=== PATIENT | female | born 1970 | race Two or more races ===

== ENCOUNTER 2017-10-10 18:11 | Inpatient (IN) | payer MEDICAID ==
[~2017-10-10] VITALS: Ht 162.6 cm; Wt 64.4 kg
[2017-10-10 18:15] VITALS: BP 158/95
[2017-10-10] MEDS ORDERED: LORazepam Inj 2mg/ml 1ml IV ONE (19:00)
[2017-10-10 20:17] LABS: BASOPHILS % (AUTO) 1.1 % (0.0-2.0); EOSINOPHILS % (AUTO) 2.1 % (0.0-3.0); HEMATOCRIT 36.7 % (37.0-47.0); HEMOGLOBIN 12.4 G/DL (12.0-16.0); LYMPHOCYTES % (AUTO) 29.1 % (20.0-45.0); MEAN CORPUSCULAR VOLUME 84 FL (80-99); MONOCYTES % (AUTO) 6.1 % (1.0-10.0); NEUTROPHILS % (AUTO) 61.5 % (45.0-75.0); PLATELET COUNT 500 K/UL (150-450); RED BLOOD COUNT 4.38 M/UL (4.20-5.40); RED CELL DISTRIBUTION WIDTH 12.7 % (11.6-14.8); WHITE BLOOD COUNT 13.3 K/UL (4.8-10.8)
[2017-10-10 20:32] LABS: ANION GAP 13 mmol/L (5-15); BLOOD UREA NITROGEN 21 mg/dL (7-18); CALCIUM 10.1 MG/DL (8.5-10.1); CARBON DIOXIDE 26 MMOL/L (21-32); CHLORIDE 100 MMOL/L (98-107); CREATININE 1.5 MG/DL (0.55-1.30); POTASSIUM 3.4 MMOL/L (3.5-5.1); SODIUM 139 MMOL/L (136-145)
[2017-10-10 20:46] LABS: ALANINE AMINOTRANSFERASE 36 U/L (12-78); ALBUMIN 3.8 G/DL (3.4-5.0); ALBUMIN/GLOBULIN RATIO 0.8 (1.0-2.7); ALKALINE PHOSPHATASE 107 U/L (46-116); ASPARTATE AMINO TRANSFERASE 16 U/L (15-37); BILIRUBIN,TOTAL 0.5 MG/DL (0.2-1.0); CKMB 0.6 NG/ML (0.0-3.6); CREATINE KINASE 34 U/L (26-308)
[2017-10-10 20:55] VITALS: BP 141/79
[2017-10-10 21:12] LABS: APPEARANCE,URINE CLOUDY; BILIRUBIN, URINE NEGATIVE (NEGATIVE); GLUCOSE, URINE (UA) NEGATIVE (NEGATIVE); KETONES,URINE NEGATIVE (NEGATIVE); LEUKOCYTE ESTERASE ,URINE 1+ (NEGATIVE); NITRITE,URINE POSITIVE (NEGATIVE); PH,URINE 7 (4.5-8.0); PROTEIN,URINE 2+ (NEGATIVE); UROBILINOGEN,URINE NORMAL MG/DL (0.0-1.0)
[2017-10-10 21:13] LABS: COLOR,URINE YELLOW
--- NOTE | 2017-10-10 21:58 | Emergency Room Report ---
History of Present Illness General Chief Complaint: Behavioral Complaint Source: Patient, Medical Record, EMS Present Illness HPI This patient presents from a care home facility. The nursing facility sent this patient over for anxiety and concern of methamphetamine withdrawal. Apparently, this patient is new to this care home facility. She has a history of an aortic dissection earlier this year that had to undergo surgical repair. She was unable to wean off the ventilator and had to undergo tracheostomy. I am unsure where the history of methamphetamine use in from. Per the PMD this was reported to the care home facility by a family member. The patient is very anxious and agitated. Initially she was unable to give me any kind of history. However, after being given Ativan she became more calm and complained of pain in her left flank. There is no other complaints. Allergies: Coded Allergies: No Known Allergies (Unverified , 10/10/17) Patient History Past Medical History: see triage record, HTN, psych hx Past Surgical History: other - Aortic dissection repair, tracheostomy, PEG Social History: Reports: smoking - hx of , drug use - ?Meth Last Menstrual Period: na Reviewed Nursing Documentation: PMH: Agreed; PSxH: Agreed Nursing Documentation-PMH Past Medical History: No History, Except For Hx Cardiac Problems: Yes - aortic anuerysm, trach Hx Hypertension: Yes History Of Psychiatric Problem: Yes - anxiety, meth abuse Review of Systems All Other Systems: negative except mentioned in HPI Physical Exam Vital Signs Date Time Temp Pulse Resp B/P (MAP) Pulse Ox O2 Delivery O2 Flow Rate FiO2 10/10/17 18:06 98.2 118 30 149/98 99 Room Air 98.2 10/10/17 18:15 6.0 Sp02 EP Interpretation: reviewed, normal General Appearance: no apparent distress, alert, GCS 15, non-toxic, other - anxious Head: normocephalic, atraumatic Eyes: bilateral eye normal inspection, bilateral eye PERRL ENT: hearing grossly normal, normal pharynx, no angioedema, normal voice Neck: normal inspection, tracheotomy Respiratory: chest non-tender, lungs clear, normal breath sounds, no respiratory distress, no retraction, no accessory muscle use, speaking full sentences Cardiovascular #1: no edema, tachycardia Gastrointestinal: normal bowel sounds, non tender, soft, non-distended, no guarding, no rebound Rectal: deferred Musculoskeletal: back normal, gait/station normal, normal range of motion, non- tender Neurologic: alert, responsive, speech normal, grossly normal Psychiatric: anxious Skin: normal color, no rash, warm/dry, well hydrated Medical Decision Making Diagnostic Impression: Primary Impression: UTI (urinary tract infection) Additional Impression: Hyperthyroidism ER Course This patient is found to have hyperthyroidism. She also has renal insufficiency and although her urinalysis is contaminated the urinalysis is consistent with a urinary tract infection. She was given broad-spectrum antibiotics. She complains of left flank pain, so I did obtain a CT of the abdomen and pelvis to assess for urolithiasis. The CTs pending at the time of this dictation. Please see Dr. Pacheco's addendum for results. Regardless of the results, this patient will be admitted for IV antibiotics and further evaluation and treatment as an inpatient. Laboratory Tests Test 10/10/17 19:30 10/10/17 20:19 White Blood Count 13.3 K/UL (4.8-10.8) H Red Blood Count 4.38 M/UL (4.20-5.40) Hemoglobin 12.4 G/DL (12.0-16.0) Hematocrit 36.7 % (37.0-47.0) L Mean Corpuscular Volume 84 FL (80-99) Mean Corpuscular Hemoglobin 28.3 PG (27.0-31.0) Mean Corpuscular Hemoglobin Concent 33.8 G/DL (32.0-36.0) Red Cell Distribution Width 12.7 % (11.6-14.8) Platelet Count 500 K/UL (150-450) H Mean Platelet Volume 5.2 FL (6.5-10.1) L Neutrophils (%) (Auto) 61.5 % (45.0-75.0) Lymphocytes (%) (Auto) 29.1 % (20.0-45.0) Monocytes (%) (Auto) 6.1 % (1.0-10.0) Eosinophils (%) (Auto) 2.1 % (0.0-3.0) Basophils (%) (Auto) 1.1 % (0.0-2.0) Sodium Level 139 MMOL/L (136-145) Potassium Level 3.4 MMOL/L (3.5-5.1) L Chloride Level 100 MMOL/L (98-107) Carbon Dioxide Level 26 MMOL/L (21-32) Anion Gap 13 mmol/L (5-15) Blood Urea Nitrogen 21 mg/dL (7-18) H Creatinine 1.5 MG/DL (0.55-1.30) H Estimate Glomerular Filtration Rate 37.5 mL/min (>60) Glucose Level 83 MG/DL (74-106) Lactic Acid Level 1.20 mmol/L (0.4-2.0) Calcium Level 10.1 MG/DL (8.5-10.1) Total Bilirubin 0.5 MG/DL (0.2-1.0) Aspartate Amino Transferase (AST) 16 U/L (15-37) Alanine Aminotransferase (ALT) 36 U/L (12-78) Alkaline Phosphatase 107 U/L (46-116) Total Creatine Kinase 34 U/L (26-308) Creatine Kinase MB 0.6 NG/ML (0.0-3.6) Creatine Kinase MB Relative Index 1.7 Troponin I 0.002 ng/mL (0.000-0.056) Total Protein 8.7 G/DL (6.4-8.2) H Albumin 3.8 G/DL (3.4-5.0) Globulin 4.9 g/dL Albumin/Globulin Ratio 0.8 (1.0-2.7) L Thyroid Stimulating Hormone (TSH) 1.337 uiU/mL (0.358-3.740) Free Thyroxine 2.19 NG/DL (0.76-1.46) H Urine Color Yellow Urine Appearance Cloudy Urine pH 7 (4.5-8.0) Urine Specific [place] 1.010 (1.005-1.035) Urine Protein 2+ (NEGATIVE) H Urine Glucose (UA) Negative (NEGATIVE) Urine Ketones Negative (NEGATIVE) Urine Blood 4+ (NEGATIVE) H Urine Nitrite Positive (NEGATIVE) H Urine Bilirubin Negative (NEGATIVE) Urine Urobilinogen Normal MG/DL (0.0-1.0) Urine Leukocyte Esterase 1+ (NEGATIVE) H Urine RBC 40-60 /HPF (0 - 2) H Urine WBC 5-10 /HPF (0 - 2) H Urine Squamous Epithelial Cells Moderate /LPF (NONE/OCC) H Urine Bacteria Many /HPF (NONE) H Urine Opiates Screen Negative (NEGATIVE) Urine Barbiturates Screen Negative (NEGATIVE) Phencyclidine (PCP) Screen Negative (NEGATIVE) Urine Amphetamines Screen Negative (NEGATIVE) Urine Benzodiazepines Screen Positive (NEGATIVE) H Urine Cocaine Screen Negative (NEGATIVE) Urine Marijuana (THC) Screen Negative (NEGATIVE) EKG Diagnostic Results Rate: tachycardiac Rhythm: other - S.tachycardia ST Segments: no acute changes Rhythm Strip Diag. Results EP Interpretation: yes Rate: 100's Rhythm: no PVC's, no ectopy, other - s.tachycardia Chest X-Ray Diagnostic Results Chest X-Ray Diagnostic Results : Chest X-Ray Ordered: Yes # of Views/Limited/Complete: 1 View Indication: Other EP Interpretation: Yes Interpretation: no consolidation, no effusion, no pneumothorax, no acute cardiopulmonary disease Impression: No acute disease Electronically Signed by: Cody CT/MRI/US Diagnostic Results CT/MRI/US Diagnostic Results : Imaging Test Ordered: CT head, CT abd/pelvis pending Impression No acute findings. See official report. Last Vital Signs Date Time Temp Pulse Resp B/P (MAP) Pulse Ox O2 Delivery O2 Flow Rate FiO2 10/10/17 20:55 97.5 96 19 141/79 100 T-piece 6.0 97.5 Disposition: ADMITTED INPATIENT Condition: Stable Referrals: Lucas Dong MD (PCP) Molly Tejeda DO Oct 10, 2017 21:58
[2017-10-10] MEDS ORDERED: Morphine Sulfate 4mg/ml Inj (IV USE ONLY) IVP ONE (22:00)
[2017-10-10] MEDS ORDERED: cefTRIAXone 1 GM in NS 55 ML IVPB ONE (22:30)
[2017-10-10] MEDS ORDERED: OMEPRAZOLE20 M2 GT (22:49)
[2017-10-10] MEDS ORDERED: LOVENOX10 M4 SUBQ (22:49)
[2017-10-10] MEDS ORDERED: ZOFRAN 4 MG4 MG/2 ML IM (22:49)
[2017-10-10] MEDS ORDERED: ROPINIROLE HCL0.5 MG GT (22:49)
[2017-10-10] MEDS ORDERED: HYDRALAZINE HCL10 MG GT (22:49)
[2017-10-10] MEDS ORDERED: NORVASC10 MG GT (22:49)
[2017-10-10] MEDS ORDERED: VITAMIN B-1100 MG GT (22:49)
[2017-10-10] MEDS ORDERED: METOPROLOL TART50 M1 GT (22:49)
[2017-10-10 22:56] VITALS: BP 132/77
[2017-10-11] VITALS: BP 151/96
[2017-10-11] MEDS: Hydromorphone 0.5mg/0.5ml inj IVP PRN ×3 (02:19→20:54)
[2017-10-11] MEDS ORDERED: HALOPERIDOL1 MG GT (04:38)
[2017-10-11] MEDS ORDERED: ATIVAN1 MG GT (04:39)
[2017-10-11] MEDS ORDERED: Haloperidol 1mg tab GT PRN (04:45)
[2017-10-11] MEDS ORDERED: Albuterol/Ipratropium 3ml neb HHN PRN (05:00)
[2017-10-11] MEDS ORDERED: HydrALAZINE 10mg Tab GT SCH (05:00)
[2017-10-11] MEDS: LORazepam 1mg tab GT PRN ×2 (05:00→19:59)
[2017-10-11] MEDS ORDERED: HydrALAZINE 10mg Tab GT PRN (05:00)
[2017-10-11] MEDS ORDERED: LORazepam Inj 2mg/ml 1ml IV PRN (06:00)
[2017-10-11 07:30] LABS: BASOPHILS % (AUTO) 0.7 % (0.0-2.0); EOSINOPHILS % (AUTO) 3.3 % (0.0-3.0); HEMATOCRIT 34.4 % (37.0-47.0); LYMPHOCYTES % (AUTO) 15.4 % (20.0-45.0); MEAN CORPUSCULAR VOLUME 84 FL (80-99); MONOCYTES % (AUTO) 4.4 % (1.0-10.0); NEUTROPHILS % (AUTO) 76.3 % (45.0-75.0); PLATELET COUNT 419 K/UL (150-450); WHITE BLOOD COUNT 15.2 K/UL (4.8-10.8)
[2017-10-11] MEDS: Albuterol/Ipratropium 3ml neb HHN SCH ×3 (07:59→19:22)
[2017-10-11 08:00] VITALS: BP 124/78
[2017-10-11 08:08] LABS: ANION GAP 12 mmol/L (5-15); BLOOD UREA NITROGEN 16 mg/dL (7-18); CALCIUM 8.2 MG/DL (8.5-10.1); CARBON DIOXIDE 23 MMOL/L (21-32); CHLORIDE 106 MMOL/L (98-107); CREATININE 1.2 MG/DL (0.55-1.30); PHOSPHORUS 3.4 MG/DL (2.5-4.9); POTASSIUM 3.9 MMOL/L (3.5-5.1); SODIUM 141 MMOL/L (136-145)
[2017-10-11] MEDS: Thiamine 100mg tab GT SCH (08:31)
[2017-10-11] MEDS: Metoprolol Tartrate 50mg tab GT SCH ×2 (08:31→21:20)
[2017-10-11] MEDS: Enoxaparin 40mg Inj SUBQ SCH (08:32)
--- NOTE | 2017-10-11 08:58 | Diagnostic Imaging Report ---
Indication: Abdominal pain Technique: Continuous helical transaxial imaging of the abdomen and pelvis was obtained from the lung bases to the pubic symphysis. No intravenous contrast was administered. Coronal 2-D reformats were also obtained. Automatic Exposure Control was utilized. Total Dose length Product (DLP): 678.[address] Dose Index Volume (CTDIvol): 11.66 mGy Comparison: none Findings: Patchy consolidation demonstrated within the visualized aspects of the lung bases primarily involving the right basilar lung. Infiltrate in the left lingula also noted. Sternotomy is present. Heart is enlarged. There is curvilinear suture likely graft at the origin of the ascending aorta probably involving part of the root. This is not adequately imaged. The thoracic aorta is diffusely ectatic. There is a fusiform dilatation of the proximal abdominal aorta. There is evidence of chronic left UPJ obstruction with marked pelvocaliectasis, severely atrophic left renal cortex. The left ureter is normal in caliber. Abrupt transition at the UPJ noted. There is atrophy of the right kidney with lobulation. No hydronephrosis seen on the right. A gastrostomy tube is present appears to be in good position. The gallbladder is noted. Solid organ evaluation limited on this study done without intravenous contrast material. Appendix not definitely seen. No evidence of bowel obstruction, free air identified. No significant free fluid identified. Uterus noted.. Curvilinear high density within the right aspect of the bladder may be sedimenting stones. Surgical clips noted adjacent to the left common femoral artery. The nature of the surgery in this location is unknown but may be vascular in nature. There is narrowing of intervertebral discs and accompanying endplate osteophyte formation. Hypertrophied facet joints also demonstrated.. IMPRESSION: Patchy consolidative opacities within the lung. Suspect pneumonia. Correlate clinically. Prior sternotomy with the probable graft involving the aortic root/ascending aorta. Moderate atherosclerotic vascular disease as described above. 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 Moderate stool allograft suspected bladder stones. Previous left common femoral artery region surgery. Nature of this is not known. Degenerative changes of the spine Gastrostomy. Limited study due to the lack of intravenous and oral contrast. The CT scanner at [facility] is accredited by the [employer] and the scans are performed using dose optimization techniques as appropriate to a performed exam including Automatic Exposure control.
[2017-10-11] MEDS ORDERED: Metoprolol Tartrate 50mg tab GT SCH (09:00)
--- NOTE | 2017-10-11 09:55 | Diagnostic Imaging Report ---
Indication: Headache Technique: Contiguous 5 mm thick transaxial imaging of the head obtained in a Siemens Sensation [address] scanner. Soft tissue and bone windows generated. Automatic Exposure Control was utilized. Total Dose length Product (DLP): 1453.[address] Dose Index Volume (CTDIvol): 70.38 mGy Comparison: none Findings: The size and configuration of the cortical sulci, basal cisterns, and ventricles are within normal limits for age. There is no mass effect, midline shift, or edema identified. There is no evidence of acute hemorrhage or abnormal intra-axial or extra-axial fluid collections. The bones and soft tissues are unremarkable. Fluid retention cyst partially visualized within the right maxillary sinus. Soft tissue prominence the posterior aspect of the turbinates also noted in the nasal cavity. This is not evaluated adequately or completely on this study. Impression: No mass effect, edema or acute bleed. Right maxillary fluid retention cyst. Prominence of the posterior aspect of the nasal turbinates versus soft palate. This is not adequately evaluated on the current exam. Evaluate further as needed. [facility] has communicated the preliminary results to the Emergency Department. Their findings are largely concordant with this report. The CT scanner at [facility] is accredited by the [employer] and the scans are performed using dose optimization techniques as appropriate to a performed exam including Automatic Exposure control.
--- NOTE | 2017-10-11 11:09 | Diagnostic Imaging Report ---
Indication: Dyspnea Comparison: None A single view chest radiograph was obtained. Findings: Sternotomy noted. There is mild right basal atelectasis and elevation of the right hemidiaphragm. Tracheostomy noted. Aorta is moderately enlarged. The heart is enlarged. Bones are unremarkable. IMPRESSION: Elevated right hemidiaphragm with the right basal atelectasis. Cardiomegaly
--- NOTE | 2017-10-11 12:34 | Consultation ---
History of Present Illness General Date patient seen: Oct 11, 2017 Chief Complaint: Behavioral Complaint Present Illness HPI 47 year old female with hx of chronic trach, PEG, [facility] brought in by paramedics with CC of anxiety and concern of methamphetamine withdrawal. Apparently, this patient is new to this detention facility. She has a history of an aortic dissection earlier this year that had to undergo surgical repair. She was unable to wean off the ventilator and had to undergo tracheostomy. The patient was very anxious and agitated. She also complained of pain in her left flank. She was found to have leucocytosis and azotemia and is admitted to telemetry for further work up. Allergies: Coded Allergies: No Known Allergies (Unverified , 10/10/17) Medication History Scheduled Amlodipine Besylate (Norvasc), 10 MG GT DAILY, (Reported) Enoxaparin* (Lovenox*), 40 MG SUBQ DAILY, (Reported) Haloperidol* (Haldol*), 1 MG GT EVERY 8 HOURS, (Reported) Hydralazine Hcl* (Hydralazine Hcl*), 10 MG GT EVERY 4 HOURS, (Reported) Lorazepam* (Ativan*), 1 MG GT Q12HR, (Reported) Metoprolol Tartrate* (Metoprolol Tartrate*), 50 MG GT EVERY 12 HOURS, (Reported) Omeprazole (Omeprazole), 20 MG GT DAILY, (Reported) Ropinirole Hcl* (Ropinirole Hcl*), 0.5 MG GT BEDTIME, (Reported) Thiamine Hcl* (Vitamin B-1*), 100 MG GT DAILY, (Reported) Scheduled PRN Ondansetron* (Zofran*), 4 MG IM Q8HR PRN for Nausea & Vomiting, (Reported) Patient History Healthcare decision maker Resuscitation status Full Code Advanced Directive on File Yes Past Medical/Surgical History Past Medical/Surgical History: (1) S/P aortic dissection repair (2) Tracheostomy in place (3) Feeding by G-tube Review of Systems All Other Systems: negative except mentioned in HPI Physical Exam General Appearance: WD/WN, no apparent distress Lines, tubes and drains: peripheral HEENT: normocephalic, atraumatic Respiratory/Chest: chest wall non-tender, lungs clear, normal breath sounds Breasts: no masses Cardiovascular/Chest: normal peripheral pulses, normal rate Abdomen: normal bowel sounds Genitourinary/Rectal: normal genital exam Extremities: normal range of motion Last 24 Hour Vital Signs Date Time Temp Pulse Resp B/P (MAP) Pulse Ox O2 Delivery O2 Flow Rate FiO2 10/11/17 09:00 Trach Collar 10/11/17 08:31 89 124/78 10/11/17 08:31 89 124/78 10/11/17 08:00 97.3 89 24 124/78 (93) 100 97.3 10/11/17 07:34 70 10/11/17 06:45 97 Trach Collar 12.0 40 10/11/17 06:45 Trach Collar 12.0 40 10/11/17 04:25 96 Trach Collar 12.0 40 10/11/17 04:25 Trach Collar 12.0 40 10/11/17 04:00 90 10/11/17 02:17 151/96 10/11/17 00:01 Trach Collar 6.0 10/11/17 00:00 94 10/11/17 00:00 98.1 90 24 151/96 (114) 100 98.1 10/10/17 23:40 97.7 86 23 132/77 100 T-piece 6.0 10/10/17 22:56 97.7 86 23 132/77 100 T-piece 6.0 97.7 10/10/17 20:55 97.5 96 19 141/79 100 T-piece 6.0 97.5 10/10/17 18:15 98.1 101 28 158/95 96 T-piece 6.0 98.1 10/10/17 18:06 98.2 118 30 149/98 99 Room Air 98.2 Intake and Output 10/10/17 10/11/17 19:00 07:00 Intake Total 0 ml 3255 ml Balance 0 ml 3255 ml Intake Oral 0 ml 120 ml Free Water 50 ml IV Total 3055 ml Tube Feeding 30 ml Laboratory Tests Test 10/10/17 19:30 10/10/17 20:19 10/11/17 06:30 White Blood Count 13.3 K/UL (4.8-10.8) H 15.2 K/UL (4.8-10.8) H Red Blood Count 4.38 M/UL (4.20-5.40) 4.10 M/UL (4.20-5.40) L Hemoglobin 12.4 G/DL (12.0-16.0) 11.0 G/DL (12.0-16.0) L Hematocrit 36.7 % (37.0-47.0) L 34.4 % (37.0-47.0) L Mean Corpuscular Volume 84 FL (80-99) 84 FL (80-99) Mean Corpuscular Hemoglobin 28.3 PG (27.0-31.0) 26.8 PG (27.0-31.0) L Mean Corpuscular Hemoglobin Concent 33.8 G/DL (32.0-36.0) 31.9 G/DL (32.0-36.0) L Red Cell Distribution Width 12.7 % (11.6-14.8) 13.0 % (11.6-14.8) Platelet Count 500 K/UL (150-450) H 419 K/UL (150-450) Mean Platelet Volume 5.2 FL (6.5-10.1) L 5.5 FL (6.5-10.1) L Neutrophils (%) (Auto) 61.5 % (45.0-75.0) 76.3 % (45.0-75.0) H Lymphocytes (%) (Auto) 29.1 % (20.0-45.0) 15.4 % (20.0-45.0) L Monocytes (%) (Auto) 6.1 % (1.0-10.0) 4.4 % (1.0-10.0) Eosinophils (%) (Auto) 2.1 % (0.0-3.0) 3.3 % (0.0-3.0) H Basophils (%) (Auto) 1.1 % (0.0-2.0) 0.7 % (0.0-2.0) Sodium Level 139 MMOL/L (136-145) 141 MMOL/L (136-145) Potassium Level 3.4 MMOL/L (3.5-5.1) L 3.9 MMOL/L (3.5-5.1) Chloride Level 100 MMOL/L (98-107) 106 MMOL/L (98-107) Carbon Dioxide Level 26 MMOL/L (21-32) 23 MMOL/L (21-32) Anion Gap 13 mmol/L (5-15) 12 mmol/L (5-15) Blood Urea Nitrogen 21 mg/dL (7-18) H 16 mg/dL (7-18) Creatinine 1.5 MG/DL (0.55-1.30) H 1.2 MG/DL (0.55-1.30) Estimat Glomerular Filtration Rate 37.5 mL/min (>60) 48.6 mL/min (>60) Glucose Level 83 MG/DL (74-106) 84 MG/DL (74-106) Lactic Acid Level 1.20 mmol/L (0.4-2.0) Calcium Level 10.1 MG/DL (8.5-10.1) 8.2 MG/DL (8.5-10.1) L Total Bilirubin 0.5 MG/DL (0.2-1.0) Aspartate Amino Transf (AST/SGOT) 16 U/L (15-37) Alanine Aminotransferase (ALT/SGPT) 36 U/L (12-78) Alkaline Phosphatase 107 U/L (46-116) Total Creatine Kinase 34 U/L (26-308) Creatine Kinase MB 0.6 NG/ML (0.0-3.6) Creatine Kinase MB Relative Index 1.7 Troponin I 0.002 ng/mL (0.000-0.056) Total Protein 8.7 G/DL (6.4-8.2) H Albumin 3.8 G/DL (3.4-5.0) 3.0 G/DL (3.4-5.0) L Globulin 4.9 g/dL Albumin/Globulin Ratio 0.8 (1.0-2.7) L Thyroid Stimulating Hormone (TSH) 1.337 uiU/mL (0.358-3.740) 1.920 uiU/mL (0.358-3.740) Free Thyroxine 2.19 NG/DL (0.76-1.46) H 2.08 NG/DL (0.76-1.46) H Urine Color Yellow Urine Appearance Cloudy Urine pH 7 (4.5-8.0) Urine Specific [place] 1.010 (1.005-1.035) Urine Protein 2+ (NEGATIVE) H Urine Glucose (UA) Negative (NEGATIVE) Urine Ketones Negative (NEGATIVE) Urine Blood 4+ (NEGATIVE) H Urine Nitrite Positive (NEGATIVE) H Urine Bilirubin Negative (NEGATIVE) Urine Urobilinogen Normal MG/DL (0.0-1.0) Urine Leukocyte Esterase 1+ (NEGATIVE) H Urine RBC 40-60 /HPF (0 - 2) H Urine WBC 5-10 /HPF (0 - 2) H Urine Squamous Epithelial Cells Moderate /LPF (NONE/OCC) H Urine Bacteria Many /HPF (NONE) H Urine Opiates Screen Negative (NEGATIVE) Urine Barbiturates Screen Negative (NEGATIVE) Phencyclidine (PCP) Screen Negative (NEGATIVE) Urine Amphetamines Screen Negative (NEGATIVE) Urine Benzodiazepines Screen Positive (NEGATIVE) H Urine Cocaine Screen Negative (NEGATIVE) Urine Marijuana (THC) Screen Negative (NEGATIVE) Erythrocyte Sedimentation Rate Pending Phosphorus Level 3.4 MG/DL (2.5-4.9) Anti-Nuclear Antibody Screen Pending Microbiology Date/Time Source Procedure Growth Status 10/10/17 20:19 Urine,Clean Catch Urine Culture - Preliminary Gram Negative Bacillus 1 Resulted 10/10/17 23:32 Rectum Received Height (Feet): 5 Height (Inches): 4.00 Weight (Pounds): 142 Medications Current Medications Medications (Trade) Dose Ordered Sig/Penny Route PRN Reason Start Time Stop Time Status Last Admin Dose Admin Albuterol/ Ipratropium (Albuterol/ Ipratropium) 3 ml EVERY 6 HOURS PRN HHN Shortness of Breath 10/11/17 05:00 10/16/17 04:59 Albuterol/ Ipratropium (Albuterol/ Ipratropium) 3 ml Q6HRT HHN 10/11/17 05:00 10/16/17 04:59 10/11/17 07:59 Amlodipine Besylate (Norvasc) 10 mg DAILY GT 10/11/17 09:00 11/10/17 08:59 10/11/17 08:31 Clonidine HCl (Catapres Tab) 0.1 mg Q4HR PRN ORAL For High Blood Pressure 10/11/17 01:30 11/10/17 01:29 10/11/17 02:17 Enoxaparin Sodium (Lovenox) 40 mg DAILY SUBQ 10/11/17 09:00 11/10/17 08:59 10/11/17 08:32 Haloperidol (Haldol) 1 mg Q8HR PRN GT Agitation 10/11/17 04:45 11/10/17 04:44 Hydralazine HCl (Apresoline) 10 mg EVERY 4 HOURS PRN GT For High Blood Pressure 10/11/17 05:00 11/10/17 04:59 Hydromorphone HCl (Dilaudid) 0.5 mg Q6HR PRN IVP For Pain 10/11/17 01:15 10/18/17 01:14 10/11/17 02:19 Lorazepam (Ativan 2mg/ml 1ml) 1 mg Q4H PRN IV For Anxiety 10/11/17 06:00 10/18/17 05:59 Lorazepam (Ativan) 1 mg Q12HR PRN GT For Anxiety 10/11/17 04:45 10/18/17 04:44 10/11/17 05:00 Metoprolol Tartrate (Lopressor) 50 mg EVERY 12 HOURS GT 10/11/17 09:00 11/10/17 08:59 10/11/17 08:31 Ondansetron HCl (Zofran) 4 mg Q8HR PRN IM Nausea & Vomiting 10/11/17 01:15 11/10/17 01:14 Pantoprazole (Protonix) 20 mg DAILY ORAL 10/11/17 09:00 11/10/17 08:59 10/11/17 08:31 Ropinirole HCl (Requip) 0.5 mg BEDTIME ORAL 10/11/17 21:00 11/10/17 20:59 Thiamine HCl (Vitamin B1) 100 mg DAILY GT 10/11/17 09:00 11/10/17 08:59 10/11/17 08:31 Assessment/Plan Problem List: (1) Acute encephalopathy ICD Codes: G93.40 - Encephalopathy, unspecified SNOMED: 09803438, 664386865 (2) UTI (urinary tract infection) ICD Codes: N39.0 - Urinary tract infection, site not specified SNOMED: 21123948 (3) JAVIER (acute kidney injury) ICD Codes: N17.9 - Acute kidney failure, unspecified SNOMED: 81838644 (4) Hyperthyroidism ICD Codes: E05.90 - Thyrotoxicosis, unspecified without thyrotoxic crisis or storm SNOMED: 16252684 (5) S/P aortic dissection repair ICD Codes: Z98.890 - Other specified postprocedural states SNOMED: 675549281, 872607008 (6) Feeding by G-tube ICD Codes: Z93.1 - Gastrostomy status SNOMED: 833152125, 605466777 (7) Tracheostomy in place ICD Codes: Z93.0 - Tracheostomy status SNOMED: 689062274 Assessment/Plan arnett cultures IV abx iv fluids monitor BP check electrolytes Ranjith Arora MD Oct 11, 2017 12:34
[2017-10-11 12:35] VITALS: BP 116/64
[2017-10-11 15:46] VITALS: BP 128/84
--- NOTE | 2017-10-11 16:38 | Consultation ---
History of Present Illness General Date patient seen: Oct 11, 2017 Chief Complaint: Behavioral Complaint Present Illness HPI 47 y/o F with hx of HTN, anxiety, chronic resp failure s/p trach, s/p PEG, aortic dissection s/p repair early 2017, [place] resident presents to ED on 10/10 with concern for methamphetamine withdrawal. Reported L flank pain. ID is consulted for leukocytosis. Allergies: Coded Allergies: No Known Allergies (Unverified , 10/10/17) Medication History Scheduled Amlodipine Besylate (Norvasc), 10 MG GT DAILY, (Reported) Enoxaparin* (Lovenox*), 40 MG SUBQ DAILY, (Reported) Haloperidol* (Haldol*), 1 MG GT EVERY 8 HOURS, (Reported) Hydralazine Hcl* (Hydralazine Hcl*), 10 MG GT EVERY 4 HOURS, (Reported) Lorazepam* (Ativan*), 1 MG GT Q12HR, (Reported) Metoprolol Tartrate* (Metoprolol Tartrate*), 50 MG GT EVERY 12 HOURS, (Reported) Omeprazole (Omeprazole), 20 MG GT DAILY, (Reported) Ropinirole Hcl* (Ropinirole Hcl*), 0.5 MG GT BEDTIME, (Reported) Thiamine Hcl* (Vitamin B-1*), 100 MG GT DAILY, (Reported) Scheduled PRN Ondansetron* (Zofran*), 4 MG IM Q8HR PRN for Nausea & Vomiting, (Reported) Patient History Healthcare decision maker Resuscitation status Full Code Advanced Directive on File Yes Patient History Narrative Pmhx: as above Shx: Reports: smoking - hx of , drug use - ?Meth Fhx: non contributory Review of Systems All Other Systems: negative except mentioned in HPI Physical Exam Physical Exam Narrative General Appearance: WD/WN, no apparent distress Lines, tubes and drains: peripheral HEENT: normocephalic, atraumatic Respiratory/Chest: chest wall non-tender, lungs clear, normal breath sounds Cardiovascular/Chest: normal peripheral pulses, normal rate Abdomen: normal bowel sounds Extremities: normal range of motion Last 24 Hour Vital Signs Date Time Temp Pulse Resp B/P (MAP) Pulse Ox O2 Delivery O2 Flow Rate FiO2 10/11/17 16:08 97.3 10/11/17 15:46 97.3 78 20 128/84 (99) 100 97.3 10/11/17 15:38 97.3 10/11/17 15:16 69 10/11/17 13:17 72 22 99 Trach Collar 12.0 40 10/11/17 13:14 72 22 Trach Collar 12.0 40 10/11/17 13:09 72 22 99 Trach Collar 12.0 40 10/11/17 13:04 Trach Collar 12.0 40 10/11/17 13:04 97 Trach Collar 12.0 40 10/11/17 12:35 97.3 70 24 116/64 (81) 100 97.3 10/11/17 12:01 69 10/11/17 09:00 Trach Collar 10/11/17 08:31 89 124/78 10/11/17 08:31 89 124/78 10/11/17 08:00 97.3 89 24 124/78 (93) 100 97.3 10/11/17 07:34 70 10/11/17 06:45 97 Trach Collar 12.0 40 10/11/17 06:45 Trach Collar 12.0 40 10/11/17 04:25 96 Trach Collar 12.0 40 10/11/17 04:25 Trach Collar 12.0 40 10/11/17 04:00 90 10/11/17 02:17 151/96 10/11/17 00:01 Trach Collar 6.0 10/11/17 00:00 94 10/11/17 00:00 98.1 90 24 151/96 (114) 100 98.1 10/10/17 23:40 97.7 86 23 132/77 100 T-piece 6.0 10/10/17 22:56 97.7 86 23 132/77 100 T-piece 6.0 97.7 10/10/17 20:55 97.5 96 19 141/79 100 T-piece 6.0 97.5 10/10/17 18:15 98.1 101 28 158/95 96 T-piece 6.0 98.1 10/10/17 18:06 98.2 118 30 149/98 99 Room Air 98.2 Intake and Output 10/10/17 10/11/17 19:00 07:00 Intake Total 0 ml 3255 ml Balance 0 ml 3255 ml Intake Oral 0 ml 120 ml Free Water 50 ml IV Total 3055 ml Tube Feeding 30 ml Laboratory Tests Test 10/10/17 19:30 10/10/17 20:19 10/11/17 06:30 White Blood Count 13.3 K/UL (4.8-10.8) H 15.2 K/UL (4.8-10.8) H Red Blood Count 4.38 M/UL (4.20-5.40) 4.10 M/UL (4.20-5.40) L Hemoglobin 12.4 G/DL (12.0-16.0) 11.0 G/DL (12.0-16.0) L Hematocrit 36.7 % (37.0-47.0) L 34.4 % (37.0-47.0) L Mean Corpuscular Volume 84 FL (80-99) 84 FL (80-99) Mean Corpuscular Hemoglobin 28.3 PG (27.0-31.0) 26.8 PG (27.0-31.0) L Mean Corpuscular Hemoglobin Concent 33.8 G/DL (32.0-36.0) 31.9 G/DL (32.0-36.0) L Red Cell Distribution Width 12.7 % (11.6-14.8) 13.0 % (11.6-14.8) Platelet Count 500 K/UL (150-450) H 419 K/UL (150-450) Mean Platelet Volume 5.2 FL (6.5-10.1) L 5.5 FL (6.5-10.1) L Neutrophils (%) (Auto) 61.5 % (45.0-75.0) 76.3 % (45.0-75.0) H Lymphocytes (%) (Auto) 29.1 % (20.0-45.0) 15.4 % (20.0-45.0) L Monocytes (%) (Auto) 6.1 % (1.0-10.0) 4.4 % (1.0-10.0) Eosinophils (%) (Auto) 2.1 % (0.0-3.0) 3.3 % (0.0-3.0) H Basophils (%) (Auto) 1.1 % (0.0-2.0) 0.7 % (0.0-2.0) Sodium Level 139 MMOL/L (136-145) 141 MMOL/L (136-145) Potassium Level 3.4 MMOL/L (3.5-5.1) L 3.9 MMOL/L (3.5-5.1) Chloride Level 100 MMOL/L (98-107) 106 MMOL/L (98-107) Carbon Dioxide Level 26 MMOL/L (21-32) 23 MMOL/L (21-32) Anion Gap 13 mmol/L (5-15) 12 mmol/L (5-15) Blood Urea Nitrogen 21 mg/dL (7-18) H 16 mg/dL (7-18) Creatinine 1.5 MG/DL (0.55-1.30) H 1.2 MG/DL (0.55-1.30) Estimat Glomerular Filtration Rate 37.5 mL/min (>60) 48.6 mL/min (>60) Glucose Level 83 MG/DL (74-106) 84 MG/DL (74-106) Lactic Acid Level 1.20 mmol/L (0.4-2.0) Calcium Level 10.1 MG/DL (8.5-10.1) 8.2 MG/DL (8.5-10.1) L Total Bilirubin 0.5 MG/DL (0.2-1.0) Aspartate Amino Transf (AST/SGOT) 16 U/L (15-37) Alanine Aminotransferase (ALT/SGPT) 36 U/L (12-78) Alkaline Phosphatase 107 U/L (46-116) Total Creatine Kinase 34 U/L (26-308) Creatine Kinase MB 0.6 NG/ML (0.0-3.6) Creatine Kinase MB Relative Index 1.7 Troponin I 0.002 ng/mL (0.000-0.056) Total Protein 8.7 G/DL (6.4-8.2) H Albumin 3.8 G/DL (3.4-5.0) 3.0 G/DL (3.4-5.0) L Globulin 4.9 g/dL Albumin/Globulin Ratio 0.8 (1.0-2.7) L Thyroid Stimulating Hormone (TSH) 1.337 uiU/mL (0.358-3.740) 1.920 uiU/mL (0.358-3.740) Free Thyroxine 2.19 NG/DL (0.76-1.46) H 2.08 NG/DL (0.76-1.46) H Urine Color Yellow Urine Appearance Cloudy Urine pH 7 (4.5-8.0) Urine Specific [place] 1.010 (1.005-1.035) Urine Protein 2+ (NEGATIVE) H Urine Glucose (UA) Negative (NEGATIVE) Urine Ketones Negative (NEGATIVE) Urine Blood 4+ (NEGATIVE) H Urine Nitrite Positive (NEGATIVE) H Urine Bilirubin Negative (NEGATIVE) Urine Urobilinogen Normal MG/DL (0.0-1.0) Urine Leukocyte Esterase 1+ (NEGATIVE) H Urine RBC 40-60 /HPF (0 - 2) H Urine WBC 5-10 /HPF (0 - 2) H Urine Squamous Epithelial Cells Moderate /LPF (NONE/OCC) H Urine Bacteria Many /HPF (NONE) H Urine Opiates Screen Negative (NEGATIVE) Urine Barbiturates Screen Negative (NEGATIVE) Phencyclidine (PCP) Screen Negative (NEGATIVE) Urine Amphetamines Screen Negative (NEGATIVE) Urine Benzodiazepines Screen Positive (NEGATIVE) H Urine Cocaine Screen Negative (NEGATIVE) Urine Marijuana (THC) Screen Negative (NEGATIVE) Erythrocyte Sedimentation Rate 66 MM/HR (0-20) H Phosphorus Level 3.4 MG/DL (2.5-4.9) Anti-Nuclear Antibody Screen Pending Microbiology Date/Time Source Procedure Growth Status 10/10/17 20:19 Urine,Clean Catch Urine Culture - Preliminary Gram Negative Bacillus 1 Resulted 10/10/17 23:32 Rectum Received Height (Feet): 5 Height (Inches): 4.00 Weight (Pounds): 142 Medications Current Medications Medications (Trade) Dose Ordered Sig/Penny Route PRN Reason Start Time Stop Time Status Last Admin Dose Admin Albuterol/ Ipratropium (Albuterol/ Ipratropium) 3 ml EVERY 6 HOURS PRN HHN Shortness of Breath 10/11/17 05:00 10/16/17 04:59 Albuterol/ Ipratropium (Albuterol/ Ipratropium) 3 ml Q6HRT HHN 10/11/17 05:00 10/16/17 04:59 10/11/17 13:07 Amlodipine Besylate (Norvasc) 10 mg DAILY GT 10/11/17 09:00 11/10/17 08:59 10/11/17 08:31 Clonidine HCl (Catapres Tab) 0.1 mg Q4HR PRN ORAL For High Blood Pressure 10/11/17 01:30 11/10/17 01:29 10/11/17 02:17 Enoxaparin Sodium (Lovenox) 40 mg DAILY SUBQ 10/11/17 09:00 11/10/17 08:59 10/11/17 08:32 Haloperidol (Haldol) 1 mg Q8HR PRN GT Agitation 10/11/17 04:45 11/10/17 04:44 Hydralazine HCl (Apresoline) 10 mg EVERY 4 HOURS PRN GT For High Blood Pressure 10/11/17 05:00 11/10/17 04:59 Hydromorphone HCl (Dilaudid) 0.5 mg Q6HR PRN IVP For Pain 10/11/17 01:15 10/18/17 01:14 10/11/17 15:38 Lorazepam (Ativan 2mg/ml 1ml) 1 mg Q4H PRN IV For Anxiety 10/11/17 06:00 10/18/17 05:59 Lorazepam (Ativan) 1 mg Q12HR PRN GT For Anxiety 10/11/17 04:45 10/18/17 04:44 10/11/17 05:00 Metoprolol Tartrate (Lopressor) 50 mg EVERY 12 HOURS GT 10/11/17 09:00 11/10/17 08:59 10/11/17 08:31 Ondansetron HCl (Zofran) 4 mg Q8HR PRN IM Nausea & Vomiting 10/11/17 01:15 11/10/17 01:14 Pantoprazole (Protonix) 20 mg DAILY ORAL 10/11/17 09:00 11/10/17 08:59 10/11/17 08:31 Ropinirole HCl (Requip) 0.5 mg BEDTIME ORAL 10/11/17 21:00 11/10/17 20:59 Thiamine HCl (Vitamin B1) 100 mg DAILY GT 10/11/17 09:00 11/10/17 08:59 10/11/17 08:31 Assessment/Plan Assessment/Plan Abx: Ceftriaxone x1 10/10 Assessment: Leukocytosis, likely 2ry to aspiration PNA- r/o UTI -CT abd/p: Patchy consolidative opacities within the lung. Suspect pneumonia. Correlate clinically. Prior sternotomy with the probable graft involving the aortic root/ascending aorta. Moderate atherosclerotic vascular disease as described above. 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 Moderate stool allograft suspected bladder stones. Previous left common femoral artery region surgery. Nature of this is not known. -u/a wbc 5-10, nit +, leuk +1; ucx >100k GNR -CXR: Elevated right hemidiaphragm with the right basal atelectasis. Cardiomegaly Afebrile JAVIER, improving CT head: No mass effect, edema or acute bleed. Right maxillary fluid retention cyst. Prominence of the posterior aspect of the nasal turbinates versus soft palate. This is not adequately evaluated on the current exam. Evaluate further as needed. HTN anxiety chronic resp failure s/p trach s/p PEG aortic dissection s/p repair early 2017 [place] resident Plan: -Continue Ceftriaxone #2 and add PO Flagyl to cover for aspiration -f/u cx -Monitor CBC/CMP, temperatures -sp cx -Aspiration precautions; speech eval Thank you for this consultation. Will continue to follow along with you. Discussed with ERASMO. Doreen Nino M.D. Oct 11, 2017 16:38
--- NOTE | 2017-10-11 16:45 | Cardiology Report ---
APPROVED REPORT EKG Measurement Heart [id number] Sinus tachycardia Possible Left atrial enlargement Rightward axis Nonspecific ST and T wave abnormality Abnormal ECG
[2017-10-11] MEDS ORDERED: Sodium Chloride 3% 4ml Nebul Soln INH ONE (17:00)
[2017-10-11] MEDS ORDERED: cefTRIAXone 1 GM in D5W 55 ML IVPB SCH (18:00)
[2017-10-11 20:00] VITALS: BP 116/68
[2017-10-11] MEDS ORDERED: rOPINIRole 0.25mg tab ORAL SCH (21:00)
[2017-10-11] MEDS: metroNIDAZOLE 500mg tab ORAL SCH (21:20)
[2017-10-12] VITALS: BP 116/61
[2017-10-12] MEDS: Albuterol/Ipratropium 3ml neb HHN SCH ×5 (01:13→19:23)
[2017-10-12] MEDS: Hydromorphone 0.5mg/0.5ml inj IVP PRN ×4 (03:16→19:42)
[2017-10-12 04:00] VITALS: BP 122/69
[2017-10-12] MEDS: metroNIDAZOLE 500mg tab ORAL SCH ×3 (06:02→21:42)
[2017-10-12 06:32] LABS: BASOPHILS % (AUTO) 0.8 % (0.0-2.0); EOSINOPHILS % (AUTO) 5.4 % (0.0-3.0); HEMATOCRIT 34.2 % (37.0-47.0); HEMOGLOBIN 10.9 G/DL (12.0-16.0); LYMPHOCYTES % (AUTO) 29.2 % (20.0-45.0); MEAN CORPUSCULAR VOLUME 85 FL (80-99); MONOCYTES % (AUTO) 7.6 % (1.0-10.0); PLATELET COUNT 446 K/UL (150-450); RED BLOOD COUNT 4.03 M/UL (4.20-5.40); RED CELL DISTRIBUTION WIDTH 13.7 % (11.6-14.8); WHITE BLOOD COUNT 10.6 K/UL (4.8-10.8)
[2017-10-12 07:13] LABS: ALANINE AMINOTRANSFERASE 28 U/L (12-78); ALBUMIN/GLOBULIN RATIO 0.7 (1.0-2.7); ALKALINE PHOSPHATASE 93 U/L (46-116); ANION GAP 9 mmol/L (5-15); ASPARTATE AMINO TRANSFERASE 14 U/L (15-37); BILIRUBIN,TOTAL 0.3 MG/DL (0.2-1.0); BLOOD UREA NITROGEN 14 mg/dL (7-18); CALCIUM 9.4 MG/DL (8.5-10.1); CARBON DIOXIDE 25 MMOL/L (21-32); CHLORIDE 104 MMOL/L (98-107); CREATININE 1.1 MG/DL (0.55-1.30); PHOSPHORUS 3.5 MG/DL (2.5-4.9); POTASSIUM 4.9 MMOL/L (3.5-5.1); SODIUM 138 MMOL/L (136-145)
[2017-10-12 08:00] VITALS: BP 142/79
[2017-10-12 08:31] LABS: % IRON SATURATION 10 % (15-50); IRON 22 ug/dL (50-175); TOTAL IRON BINDING CAPACITY 227 ug/dL (250-450)
[2017-10-12 08:52] LABS: FERRITIN 55 NG/ML (8-388); LACTATE DEHYDROGENASE 183 U/L (81-234)
[2017-10-12] MEDS: Metoprolol Tartrate 50mg tab GT SCH ×2 (09:48→20:40)
[2017-10-12] MEDS: Thiamine 100mg tab GT SCH (09:48)
[2017-10-12] MEDS: LORazepam 1mg tab GT PRN (09:48)
[2017-10-12] MEDS: Enoxaparin 40mg Inj SUBQ SCH (09:50)
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
--- NOTE | 2017-10-12 11:25 | Pulmonology Progress Note ---
Assessment/Plan Problems: (1) Acute encephalopathy (2) UTI (urinary tract infection) (3) JAVIER (acute kidney injury) (4) Hyperthyroidism (5) S/P aortic dissection repair (6) Feeding by G-tube (7) Tracheostomy in place Assessment/Plan respiratory treatment check cxr in am check cultures, GNR in urine so far continue abx pain management frequent suctioning. Subjective ROS Limited/Unobtainable: No Constitutional: Reports: no symptoms HEENT: Repors: no symptoms Allergies: Coded Allergies: No Known Allergies (Unverified , 10/10/17) Objective Last 24 Hour Vital Signs Date Time Temp Pulse Resp B/P (MAP) Pulse Ox O2 Delivery O2 Flow Rate FiO2 10/12/17 09:49 75 142/79 10/12/17 09:48 75 142/79 10/12/17 09:00 T-piece 10/12/17 08:00 98.1 72 18 142/79 (100) 97 98.1 10/12/17 08:00 75 10/12/17 07:55 79 20 99 T-piece 8.0 30 10/12/17 07:45 30 10/12/17 07:45 T-piece 8.0 30 10/12/17 07:45 99 T-piece 8.0 30 10/12/17 07:45 75 16 99 T-piece 8.0 30 10/12/17 04:00 98.0 78 18 122/69 (86) 99 98.0 10/12/17 04:00 72 10/12/17 01:22 74 20 99 T-piece 8.0 30 10/12/17 01:12 T-piece 8.0 30 10/12/17 01:12 70 20 99 T-piece 8.0 30 10/12/17 01:11 98 T-piece 8.0 30 10/12/17 00:00 73 10/12/17 00:00 99.0 74 18 116/61 (79) 100 99.0 10/11/17 21:20 76 118/69 10/11/17 21:00 T-piece 10/11/17 20:00 97.9 103 18 116/68 (84) 100 97.9 10/11/17 20:00 76 10/11/17 19:36 75 24 97 Trach Collar 10.0 30 10/11/17 19:26 Trach Collar 12.0 40 10/11/17 19:25 99 Trach Collar 12.0 40 10/11/17 19:00 73 24 99 Trach Collar 12.0 40 10/11/17 16:08 97.3 10/11/17 15:46 97.3 78 20 128/84 (99) 100 97.3 10/11/17 15:38 97.3 10/11/17 15:16 69 10/11/17 13:17 72 22 99 Trach Collar 12.0 40 10/11/17 13:14 72 22 Trach Collar 12.0 40 10/11/17 13:09 72 22 99 Trach Collar 12.0 40 10/11/17 13:04 Trach Collar 12.0 40 10/11/17 13:04 97 Trach Collar 12.0 40 10/11/17 12:35 97.3 70 24 116/64 (81) 100 97.3 10/11/17 12:01 69 Intake and Output 10/11/17 10/12/17 19:00 07:00 Intake Total 960 ml 530 ml Balance 960 ml 530 ml Intake Oral 120 ml Free Water 150 ml 50 ml Tube Feeding 690 ml 480 ml # Voids 3 General Appearance: WD/WN HEENT: normocephalic, status post trach Respiratory/Chest: chest wall non-tender, lungs clear Breasts: no masses Cardiovascular: normal peripheral pulses, regular rhythm Abdomen: normal bowel sounds, soft, non tender Skin: no rash 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 Microbiology Date/Time Source Procedure Growth Status 10/10/17 19:30 Blood Blood Culture - Preliminary NO GROWTH AFTER 24 HOURS Resulted 10/10/17 19:30 Blood Blood Culture - Preliminary NO GROWTH AFTER 24 HOURS Resulted 10/10/17 20:19 Urine,Clean Catch Urine Culture - Preliminary Gram Negative Bacillus 1 Resulted 10/10/17 23:32 Rectum Received Laboratory Tests 10/12/17 05:15: White Blood Count 10.6, Red Blood Count 4.03L, Hemoglobin 10.9L, Hematocrit 34.2L, Mean Corpuscular Volume 85, Mean Corpuscular Hemoglobin 27.1, Mean Corpuscular Hemoglobin Concent 31.9L, Red Cell Distribution Width 13.7, Platelet Count 446, Mean Platelet Volume 5.4L, Neutrophils (%) (Auto) 57.0, Lymphocytes (%) (Auto) 29.2, Monocytes (%) (Auto) 7.6, Eosinophils (%) (Auto) 5.4H, Basophils (%) (Auto) 0.8, Reticulocyte Count 1.6, Sodium Level 138, Potassium Level 4.9, Chloride Level 104, Carbon Dioxide Level 25, Anion Gap 9, Blood Urea Nitrogen 14, Creatinine 1.1, Estimat Glomerular Filtration Rate 53.7 , Glucose Level 93, Calcium Level 9.4, Phosphorus Level 3.5, Magnesium Level 1.9 , Iron Level 22L, Total Iron Binding Capacity 227L, Percent Iron Saturation 10L , Unsaturated Iron Binding 205, Ferritin 55, Total Bilirubin 0.3, Aspartate Amino Transf (AST/SGOT) 14L, Alanine Aminotransferase (ALT/SGPT) 28, Alkaline Phosphatase 93, Lactate Dehydrogenase 183, Total Protein 7.5, Albumin 3.0L, Globulin 4.5, Albumin/Globulin Ratio 0.7L, Thyroid Stimulating Hormone (TSH) 0.838 Current Medications Medications (Trade) Dose Ordered Sig/Penny Route PRN Reason Start Time Stop Time Status Last Admin Dose Admin Albuterol/ Ipratropium (Albuterol/ Ipratropium) 3 ml EVERY 6 HOURS PRN HHN Shortness of Breath 10/11/17 05:00 10/16/17 04:59 Albuterol/ Ipratropium (Albuterol/ Ipratropium) 3 ml Q6HRT HHN 10/11/17 05:00 10/16/17 04:59 10/12/17 07:51 Amlodipine Besylate (Norvasc) 10 mg DAILY GT 10/11/17 09:00 11/10/17 08:59 10/12/17 09:49 Ceftriaxone Sodium 1 gm/ Dextrose 55 ml @ 110 mls/hr Q24H IVPB 10/11/17 18:00 10/18/17 17:59 10/11/17 17:51 Clonidine HCl (Catapres Tab) 0.1 mg Q4HR PRN ORAL For High Blood Pressure 10/11/17 01:30 11/10/17 01:29 10/11/17 02:17 Enoxaparin Sodium (Lovenox) 40 mg DAILY SUBQ 10/11/17 09:00 11/10/17 08:59 10/12/17 09:50 Haloperidol (Haldol) 1 mg Q8HR PRN GT Agitation 10/11/17 04:45 11/10/17 04:44 Hydralazine HCl (Apresoline) 10 mg EVERY 4 HOURS PRN GT For High Blood Pressure 10/11/17 05:00 11/10/17 04:59 Hydromorphone HCl (Dilaudid) 0.5 mg Q4H PRN IVP For Pain 10/11/17 20:30 10/18/17 20:29 10/12/17 09:02 Lorazepam (Ativan 2mg/ml 1ml) 1 mg Q4H PRN IV For Anxiety 10/11/17 06:00 10/18/17 05:59 Lorazepam (Ativan) 1 mg Q12HR PRN GT For Anxiety 10/11/17 04:45 10/18/17 04:44 10/12/17 09:48 Metoprolol Tartrate (Lopressor) 50 mg EVERY 12 HOURS GT 10/11/17 09:00 11/10/17 08:59 10/12/17 09:48 Metronidazole (Flagyl) 500 mg Q8HR ORAL 10/11/17 22:00 10/18/17 21:59 10/12/17 06:02 Ondansetron HCl (Zofran) 4 mg Q8HR PRN IM Nausea & Vomiting 10/11/17 01:15 11/10/17 01:14 Pantoprazole (Protonix) 20 mg DAILY ORAL 10/11/17 09:00 11/10/17 08:59 10/12/17 09:48 Ropinirole HCl (Requip) 0.5 mg BEDTIME ORAL 10/11/17 21:00 11/10/17 20:59 10/11/17 21:20 Thiamine HCl (Vitamin B1) 100 mg DAILY GT 10/11/17 09:00 11/10/17 08:59 10/12/17 09:48 Ranjith Arora MD Oct 12, 2017 11:25
[2017-10-12 12:00] VITALS: BP 112/57
--- NOTE | 2017-10-12 12:24 | Infectious Diseases Prog Note ---
Assessment/Plan Assessment/Plan Assessment: Leukocytosis, SP- likely 2ry to aspiration PNA- and probable UTI -CT abd/p: Patchy consolidative opacities within the lung. Suspect pneumonia. Correlate clinically. Prior sternotomy with the probable graft involving the aortic root/ascending aorta. Moderate atherosclerotic vascular disease as described above. 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 Moderate stool allograft suspected bladder stones. Previous left common femoral artery region surgery. Nature of this is not known. -u/a wbc 5-10, nit +, leuk +1; ucx >100k Enterobacter aerogenes (R ancef, nitro; otherwise S) -CXR: Elevated right hemidiaphragm with the right basal atelectasis. Cardiomegaly Afebrile JAVIER, improving CT head: No mass effect, edema or acute bleed. Right maxillary fluid retention cyst. Prominence of the posterior aspect of the nasal turbinates versus soft palate. This is not adequately evaluated on the current exam. Evaluate further as needed. HTN anxiety chronic resp failure s/p trach s/p PEG aortic dissection s/p repair early 2017 [place] resident Plan: -Continue Ceftriaxone #3 and PO Flagyl #2 to cover for aspiration; will treat for 5-7 days -f/u cx -Monitor CBC/CMP, temperatures -Aspiration precautions; speech eval Thank you for this consultation. Will continue to follow along with you. Discussed with RN. Subjective Allergies: Coded Allergies: No Known Allergies (Unverified , 10/10/17) Subjective afebrile leukocytosis resolved Objective Vital Signs Last 24 Hour Vital Signs Date Time Temp Pulse Resp B/P (MAP) Pulse Ox O2 Delivery O2 Flow Rate FiO2 10/12/17 09:49 75 142/79 10/12/17 09:48 75 142/79 10/12/17 09:00 T-piece 10/12/17 08:00 98.1 72 18 142/79 (100) 97 98.1 10/12/17 08:00 75 10/12/17 07:55 79 20 99 T-piece 8.0 30 10/12/17 07:45 30 10/12/17 07:45 T-piece 8.0 30 10/12/17 07:45 99 T-piece 8.0 30 10/12/17 07:45 75 16 99 T-piece 8.0 30 10/12/17 04:00 98.0 78 18 122/69 (86) 99 98.0 10/12/17 04:00 72 10/12/17 01:22 74 20 99 T-piece 8.0 30 10/12/17 01:12 T-piece 8.0 30 10/12/17 01:12 70 20 99 T-piece 8.0 30 10/12/17 01:11 98 T-piece 8.0 30 10/12/17 00:00 73 10/12/17 00:00 99.0 74 18 116/61 (79) 100 99.0 10/11/17 21:20 76 118/69 10/11/17 21:00 T-piece 10/11/17 20:00 97.9 103 18 116/68 (84) 100 97.9 10/11/17 20:00 76 10/11/17 19:36 75 24 97 Trach Collar 10.0 30 10/11/17 19:26 Trach Collar 12.0 40 10/11/17 19:25 99 Trach Collar 12.0 40 10/11/17 19:00 73 24 99 Trach Collar 12.0 40 10/11/17 16:08 97.3 10/11/17 15:46 97.3 78 20 128/84 (99) 100 97.3 10/11/17 15:38 97.3 10/11/17 15:16 69 10/11/17 13:17 72 22 99 Trach Collar 12.0 40 10/11/17 13:14 72 22 Trach Collar 12.0 40 10/11/17 13:09 72 22 99 Trach Collar 12.0 40 10/11/17 13:04 Trach Collar 12.0 40 10/11/17 13:04 97 Trach Collar 12.0 40 10/11/17 12:35 97.3 70 24 116/64 (81) 100 97.3 Height (Feet): 5 Height (Inches): 4.00 Weight (Pounds): 142 Objective General Appearance: WD/WN, no apparent distress Lines, tubes and drains: peripheral HEENT: normocephalic, atraumatic Respiratory/Chest: chest wall non-tender, lungs clear, normal breath sounds Cardiovascular/Chest: normal peripheral pulses, normal rate Abdomen: normal bowel sounds Extremities: normal range of motion Microbiology Date/Time Source Procedure Growth Status 10/10/17 19:30 Blood Blood Culture - Preliminary NO GROWTH AFTER 24 HOURS Resulted 10/10/17 19:30 Blood Blood Culture - Preliminary NO GROWTH AFTER 24 HOURS Resulted 10/10/17 20:19 Urine,Clean Catch Urine Culture - Final Enterobacter Aerogenes Complete 10/10/17 23:32 Rectum Received Laboratory Tests Test 10/12/17 05:15 White Blood Count 10.6 K/UL (4.8-10.8) Red Blood Count 4.03 M/UL (4.20-5.40) L Hemoglobin 10.9 G/DL (12.0-16.0) L Hematocrit 34.2 % (37.0-47.0) L Mean Corpuscular Volume 85 FL (80-99) Mean Corpuscular Hemoglobin 27.1 PG (27.0-31.0) Mean Corpuscular Hemoglobin Concent 31.9 G/DL (32.0-36.0) L Red Cell Distribution Width 13.7 % (11.6-14.8) Platelet Count 446 K/UL (150-450) Mean Platelet Volume 5.4 FL (6.5-10.1) L Neutrophils (%) (Auto) 57.0 % (45.0-75.0) Lymphocytes (%) (Auto) 29.2 % (20.0-45.0) Monocytes (%) (Auto) 7.6 % (1.0-10.0) Eosinophils (%) (Auto) 5.4 % (0.0-3.0) H Basophils (%) (Auto) 0.8 % (0.0-2.0) Reticulocyte Count 1.6 % (0.0-2.0) Sodium Level 138 MMOL/L (136-145) Potassium Level 4.9 MMOL/L (3.5-5.1) Chloride Level 104 MMOL/L (98-107) Carbon Dioxide Level 25 MMOL/L (21-32) Anion Gap 9 mmol/L (5-15) Blood Urea Nitrogen 14 mg/dL (7-18) Creatinine 1.1 MG/DL (0.55-1.30) Estimat Glomerular Filtration Rate 53.7 mL/min (>60) Glucose Level 93 MG/DL (74-106) Calcium Level 9.4 MG/DL (8.5-10.1) Phosphorus Level 3.5 MG/DL (2.5-4.9) Magnesium Level 1.9 MG/DL (1.8-2.4) Iron Level 22 ug/dL (50-175) L Total Iron Binding Capacity 227 ug/dL (250-450) L Percent Iron Saturation 10 % (15-50) L Unsaturated Iron Binding 205 ug/dL (112-346) Ferritin 55 NG/ML (8-388) Total Bilirubin 0.3 MG/DL (0.2-1.0) Aspartate Amino Transf (AST/SGOT) 14 U/L (15-37) L Alanine Aminotransferase (ALT/SGPT) 28 U/L (12-78) Alkaline Phosphatase 93 U/L (46-116) Lactate Dehydrogenase 183 U/L (81-234) Total Protein 7.5 G/DL (6.4-8.2) Albumin 3.0 G/DL (3.4-5.0) L Globulin 4.5 g/dL Albumin/Globulin Ratio 0.7 (1.0-2.7) L Thyroid Stimulating Hormone (TSH) 0.838 uiU/mL (0.358-3.740) Current Medications Medications (Trade) Dose Ordered Sig/Penny Route PRN Reason Start Time Stop Time Status Last Admin Dose Admin Albuterol/ Ipratropium (Albuterol/ Ipratropium) 3 ml EVERY 6 HOURS PRN HHN Shortness of Breath 10/11/17 05:00 10/16/17 04:59 Albuterol/ Ipratropium (Albuterol/ Ipratropium) 3 ml Q6HRT HHN 10/11/17 05:00 10/16/17 04:59 10/12/17 07:51 Amlodipine Besylate (Norvasc) 10 mg DAILY GT 10/11/17 09:00 11/10/17 08:59 10/12/17 09:49 Ceftriaxone Sodium 1 gm/ Dextrose 55 ml @ 110 mls/hr Q24H IVPB 10/11/17 18:00 10/18/17 17:59 10/11/17 17:51 Clonidine HCl (Catapres Tab) 0.1 mg Q4HR PRN ORAL For High Blood Pressure 10/11/17 01:30 11/10/17 01:29 10/11/17 02:17 Enoxaparin Sodium (Lovenox) 40 mg DAILY SUBQ 10/11/17 09:00 11/10/17 08:59 10/12/17 09:50 Haloperidol (Haldol) 1 mg Q8HR PRN GT Agitation 10/11/17 04:45 11/10/17 04:44 Hydralazine HCl (Apresoline) 10 mg EVERY 4 HOURS PRN GT For High Blood Pressure 10/11/17 05:00 11/10/17 04:59 Hydromorphone HCl (Dilaudid) 0.5 mg Q4H PRN IVP For Pain 10/11/17 20:30 10/18/17 20:29 10/12/17 09:02 Lorazepam (Ativan 2mg/ml 1ml) 1 mg Q4H PRN IV For Anxiety 10/11/17 06:00 10/18/17 05:59 Lorazepam (Ativan) 1 mg Q12HR PRN GT For Anxiety 10/11/17 04:45 10/18/17 04:44 10/12/17 09:48 Metoprolol Tartrate (Lopressor) 50 mg EVERY 12 HOURS GT 10/11/17 09:00 11/10/17 08:59 10/12/17 09:48 Metronidazole (Flagyl) 500 mg Q8HR ORAL 10/11/17 22:00 10/18/17 21:59 10/12/17 06:02 Ondansetron HCl (Zofran) 4 mg Q8HR PRN IM Nausea & Vomiting 10/11/17 01:15 11/10/17 01:14 Pantoprazole (Protonix) 20 mg DAILY ORAL 10/11/17 09:00 11/10/17 08:59 10/12/17 09:48 Ropinirole HCl (Requip) 0.5 mg BEDTIME ORAL 10/11/17 21:00 11/10/17 20:59 10/11/17 21:20 Thiamine HCl (Vitamin B1) 100 mg DAILY GT 10/11/17 09:00 11/10/17 08:59 10/12/17 09:48 Doreen Nino M.D. Oct 12, 2017 12:24
--- NOTE | 2017-10-12 12:30 | History and Physical Report ---
DATE OF ADMISSION: 10/10/2017 REASON FOR ADMISSION: This is the first admission to [facility] of this 47-year-old lady because of hypotension, hypoxia, and tachycardia. HISTORY OF PRESENT ILLNESS: The patient was transferred to [facility] several days ago after a long admission at [facility]. She was doing relatively well. Over the next several days, the patient developed tachycardia, anxiousness and hypoxia. She was transferred to [facility] ER where she was cleaned for blood toxicity. Blood toxicity was negative, however, she was found to have pneumonia and leukocytosis and was admitted. PAST MEDICAL HISTORY: The patient developed acute respiratory distress, secondary to cerebrovascular accident. She was admitted to [facility] where she was intubated and placed on mechanical ventilation. She was unable to be weaned, underwent tracheostomy and gastrostomy and referred to [place]. She was doing well in [place] and transferred to [facility] and within several days was transferred to [facility]. ALLERGIES: No known drug allergies. MEDICATIONS: The patient is on metoprolol 50 mg daily. She is on thiamine 100 mg daily, pantoprazole 20 mg daily, amlodipine 10 mg daily, lorazepam 1 mg q.4 h., therapy every four hours. She is on ondansetron 4 mg q.4 h. p.r.n. for nausea and vomiting. FAMILY HISTORY: Not available with the patient. SOCIAL HISTORY: She is single. She was born in [place]. She has been on SSI for many years prior to appearance of total disability. 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 HABITS: The patient does not smoke, drink, or use illicit drugs even though her mother claimed the patient is using methamphetamine. REVIEW OF SYSTEMS: The patient hard to give any information regarding her state of health. PHYSICAL EXAMINATION: VITAL SIGNS: Blood pressure was 118/69, pulse is 75, respirations were 20, temperature was 97.3 degrees. HEENT: Eyes were normal. Pupils were round, equal, and reactive to light. Sclerae was white. Conjunctiva was pink. Extraocular movements were normal. Temporal arteries were palpable bilaterally. There was no bilateral temporal wasting. Visual cervantes to confrontation. Neglect sign could not be assessed because of lack of the patient's cooperation. ENT, mucous membranes were not dehydrated. Auditory canals were clear and tympanic membranes could not be visualized. Nasal cavity was not congested. Nasal septum was intact. Soft palate was free of ulcerations. Pharynx was clear from exudate or tonsillar hypertrophy. Uvula mohit to phonation. Tongue was moist, midline, and normally papillated. NECK: Supple. There was no goiter. No mass. No lymphadenopathy. There was no JVD, no bruits. Carotid upstroke was 2+. LUNGS: Clear. There was bilateral rhonchi at both bases only, more on the left than on the right. HEART: PMI was in the fifth left intercostal space in midclavicular line. There was normal S1 and normal S2. There was no murmur. No arrhythmia. No S3. No S4. No pericardial rub. ABDOMEN: Soft, nontender without organomegaly. There were no masses palpable. There was normal bowel sounds without bruits. There was no guarding. No rebound, or tenderness. No ascites. No hernia. No CVA tenderness. Liver span was 8 cm, mostly nontender. EXTREMITIES: No cyanosis, clubbing, or edema. Extremities were warm. NEUROLOGICAL: Reflexes in biceps, triceps, and brachioradialis were present. Patellar retinaculum were present. Plantar were in flexion 06:48 flexion on the left. Cranial nerves II through XII were symmetric and equal. Cerebellar function, gait was not tested. [id number], rapid alternating movements, and Romberg sign were not performed by the patient. There was no tremor. No nystagmus. No extrapyramidal rigidity. Sensory exam to pinprick, cotton touch, and position are grossly normal. Motor strength was 5/5 against resistance on the left side of the patient and 3/5 against resistance in the right upper extremity and was not allowed to be taken on the right lower extremity. LABORATORY DATA: Hemoglobin is 12.4, hematocrit 36.7 with MCV of 84, WBC of 17.3 and platelets is 500,000. BUN and creatinine is 21 and 1.5 respectively. Her sodium is 149, potassium 3.4, chloride 100, CO2 was 25. Troponin was hardly detected. Her albumin was 3.8 and total protein is 8.7. TSH was 9.9, free T4 was 2.19. Urinalysis show 40-50 WBC and 5 to 10 WBCs in the urine. IMPRESSION: is negative. Now, that the patient is started on Zosyn 3.375 g IV piggyback q.6 h. Infectious Disease marketing database consultant was called to assist in management of this case. Repeat laboratory tests will be done in the a.m. Lucas Dong M.D. DR: DUYEN JOB#: [id number] CC:
[2017-10-12 16:41] VITALS: BP 132/77
[2017-10-12] MEDS ORDERED: HydrALAZINE 10mg Tab GT PRN (17:00)
[2017-10-12] MEDS: cefTRIAXone 1 GM in D5W 55 ML IVPB SCH (17:15)
[2017-10-12] MEDS ORDERED: Albuterol/Ipratropium 3ml neb HHN PRN (18:00)
[2017-10-12 19:40] VITALS: BP 137/81
[2017-10-12] MEDS: rOPINIRole 0.25mg tab ORAL SCH (20:40)
[2017-10-12] MEDS: LORazepam Inj 2mg/ml 1ml IV PRN (20:40)
[2017-10-12] MEDS ORDERED: LORazepam 1mg tab GT PRN (21:00)
[2017-10-12] MEDS ORDERED: Haloperidol 1mg tab GT PRN (22:00)
[2017-10-13] MEDS: Hydromorphone 0.5mg/0.5ml inj IVP PRN ×5 (00:26→20:51)
[2017-10-13 00:30] VITALS: BP 113/68
[2017-10-13] MEDS: Albuterol/Ipratropium 3ml neb HHN SCH ×4 (01:28→19:57)
[2017-10-13] MEDS: LORazepam Inj 2mg/ml 1ml IV PRN ×4 (01:55→19:31)
[2017-10-13 04:42] VITALS: BP 106/53
[2017-10-13] MEDS: metroNIDAZOLE 500mg tab ORAL SCH ×3 (05:48→22:00)
[2017-10-13 06:56] LABS: BASOPHILS % (AUTO) 0.9 % (0.0-2.0); EOSINOPHILS % (AUTO) 4.5 % (0.0-3.0); HEMATOCRIT 33.5 % (37.0-47.0); HEMOGLOBIN 11.2 G/DL (12.0-16.0); MEAN CORPUSCULAR VOLUME 84 FL (80-99); MONOCYTES % (AUTO) 6.7 % (1.0-10.0); NEUTROPHILS % (AUTO) 49.9 % (45.0-75.0); PLATELET COUNT 415 K/UL (150-450); RED CELL DISTRIBUTION WIDTH 12.9 % (11.6-14.8); WHITE BLOOD COUNT 9.3 K/UL (4.8-10.8)
[2017-10-13 07:39] LABS: ALANINE AMINOTRANSFERASE 26 U/L (12-78); ALBUMIN 2.9 G/DL (3.4-5.0); ALBUMIN/GLOBULIN RATIO 0.6 (1.0-2.7); ALKALINE PHOSPHATASE 94 U/L (46-116); ANION GAP 9 mmol/L (5-15); ASPARTATE AMINO TRANSFERASE 14 U/L (15-37); BILIRUBIN,TOTAL 0.2 MG/DL (0.2-1.0); BLOOD UREA NITROGEN 13 mg/dL (7-18); CALCIUM 9.3 MG/DL (8.5-10.1); CARBON DIOXIDE 26 MMOL/L (21-32); CHLORIDE 102 MMOL/L (98-107); POTASSIUM 4.1 MMOL/L (3.5-5.1); SODIUM 137 MMOL/L (136-145)
[2017-10-13 08:00] VITALS: BP 115/67
[2017-10-13] MEDS: Metoprolol Tartrate 50mg tab GT SCH ×2 (08:31→20:51)
[2017-10-13] MEDS: Thiamine 100mg tab GT SCH (08:32)
[2017-10-13] MEDS: Enoxaparin 40mg Inj SUBQ SCH (08:33)
--- NOTE | 2017-10-13 09:00 | Consultation ---
DATE OF CONSULTATION: 10/12/2017 HEMATOLOGY/ONCOLOGY CONSULTATION CONSULTING PHYSICIAN: Evan Muhammad M.D. REQUESTING PHYSICIAN: Lucas Dong M.D. IDENTIFICATION DATA: Dear Dr. Dong, The patient is a pleasant 47-year-old female with past medical history, which is significant for history of chronic trach and PEG tube, [facility] facility resident, at this time presents from paramedics with a chief complaint of anxiety, concerned for methamphetamine withdrawal. The patient is currently new to [facility] facility. She has a history aortic dissection 00:46, had to undergo surgical repair, unable to be weaned off the vent, underwent tracheostomy. The patient currently agitated, anxious, and complaining of pain in the left lung, noted to have leukocytosis as well as anemia. Hematology service was consulted for further evaluation and treatment. MEDICATIONS: 01:05____, ALLERGIES: No known drug allergies. REVIEW OF SYSTEMS: CONSTITUTIONAL: No fevers, chills, or night sweats. SKIN: No rashes, bumps, or itching. HEENT: No headache, hearing or visual changes. BREASTS: No lumps, pain, or discharge. PULMONARY: No cough, sputum, or shortness of breath. PHYSICAL EXAMINATION: VITAL SIGNS: Reviewed. GENERAL: No acute distress. PULMONARY: Decreased breath sounds. The patient with a tracheostomy in place. CARDIOVASCULAR: Regular rate. No S3 or S4. ABDOMEN: Soft and nondistended. Positive for PEG tube. EXTREMITIES: No cyanosis, swelling, or edema noted. LABORATORY DATA: WBC of currently 10.6, hemoglobin 10.9, and platelet count 446,000. Chemistry reviewed. BUN of 14 and creatinine 1.1. AST 14. Albumin of 3. T4 of 2.1. Urine tox reviewed, benzodiazepines noted in the urine. Immunology reviewed, pending. ASSESSMENT AND RECOMMENDATIONS: 1. Anemia due to underlying chronic disease. Anemia workup has been reviewed. Consider to send out workup if hemoglobin less than 10, currently is borderline. 2. Leukocytosis likely secondary to reactive process related to underlying infection. She has been by ID service. 3. Thrombocytosis related to underlying anemia. Potential of methamphetamine withdrawal. 4. Chronic respiratory failure, status post trach. 5. Dysphagia, status post PEG tube. 6. Aortic dissection. Evan Muhammad M.D. DR: FABIEN JOB#: [id number] CC:
[2017-10-13 12:00] VITALS: BP 113/57
--- NOTE | 2017-10-13 12:12 | Diagnostic Imaging Report ---
Indication: Dyspnea Comparison: 10/10/2017 A single view chest radiograph was obtained. Findings: The heart is enlarged. There is a basilar atelectasis on the right with elevation of the right hemidiaphragm again noted. Patchy atelectasis suspected at the left lung base as well. Pneumonia not entirely excludable. Correlate clinically. Tracheostomy and sternotomy again noted. IMPRESSION: Slightly increasing parenchymal opacities at the left lung base. This may be atelectasis given low lung volumes. Pneumonia not excluded. Correlate clinically. No change otherwise.
--- NOTE | 2017-10-13 13:29 | Pulmonology Progress Note ---
Assessment/Plan Problems: (1) Acute encephalopathy (2) UTI (urinary tract infection) (3) JAVIER (acute kidney injury) (4) Hyperthyroidism (5) S/P aortic dissection repair (6) Feeding by G-tube (7) Tracheostomy in place Assessment/Plan respiratory treatment check cultures, GNR in urine so far sputum has GPC continue abx pain management frequent suctioning. cxr reviewed, slightly increased Left infiltrate Subjective ROS Limited/Unobtainable: No HEENT: Repors: no symptoms Respiratory: Reports: no symptoms Allergies: Coded Allergies: No Known Allergies (Unverified , 10/10/17) Objective Last 24 Hour Vital Signs Date Time Temp Pulse Resp B/P (MAP) Pulse Ox O2 Delivery O2 Flow Rate FiO2 10/13/17 13:17 77 18 98 T-piece 8.0 30 10/13/17 12:00 98.6 71 18 113/57 (75) 93 98.6 10/13/17 11:30 97.7 10/13/17 09:00 T-piece 10/13/17 08:31 77 115/67 10/13/17 08:31 77 115/67 10/13/17 08:00 97.7 77 18 115/67 (83) 100 97.7 10/13/17 07:30 81 18 99 T-piece 8.0 30 10/13/17 07:30 30 10/13/17 07:26 T-piece 8.0 30 10/13/17 07:25 98 T-piece 8.0 30 10/13/17 07:23 79 18 98 T-piece 8.0 30 10/13/17 04:42 97.9 79 20 106/53 (70) 96 97.9 10/13/17 04:33 98.2 10/13/17 01:37 78 18 99 T-piece 8.0 30 10/13/17 01:27 76 18 97 T-piece 8.0 30 10/13/17 01:27 97 T-piece 8.0 30 10/13/17 01:27 30 10/13/17 01:27 T-piece 8.0 30 10/13/17 00:30 98.2 71 19 113/68 (83) 93 98.2 10/13/17 00:26 98.2 10/12/17 20:40 82 137/81 10/12/17 20:00 T-piece 10/12/17 19:42 98.2 10/12/17 19:40 98.2 82 18 137/81 (99) 95 98.2 10/12/17 19:33 88 20 99 T-piece 8.0 30 10/12/17 19:23 30 10/12/17 19:23 85 20 97 T-piece 8.0 30 10/12/17 19:23 97 T-piece 8.0 30 10/12/17 19:23 T-piece 8.0 30 10/12/17 17:16 80 132/77 10/12/17 16:41 98.2 80 22 132/77 (95) 100 98.2 10/12/17 15:19 98.1 10/12/17 14:49 98.1 10/12/17 13:31 75 20 99 T-piece 8.0 30 Intake and Output 10/12/17 10/13/17 19:00 07:00 Intake Total 600 ml 520 ml Output Total 300 ml Balance 300 ml 520 ml Free Water 60 ml 40 ml Tube Feeding 540 ml 480 ml Output Urine Total 300 ml # Voids 2 General Appearance: WD/WN HEENT: status post trach Respiratory/Chest: chest wall non-tender, lungs clear Abdomen: normal bowel sounds, soft, non tender, no organomegaly Genitourinary: normal external genitalia Extremities: no cyanosis 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 Complete 10/10/17 23:32 Rectum VRE Culture - Final Enterococcus Faecalis - Vre Complete Laboratory Tests 10/13/17 05:25: White Blood Count 9.3, Red Blood Count 4.00L, Hemoglobin 11.2L, Hematocrit 33.5L , Mean Corpuscular Volume 84, Mean Corpuscular Hemoglobin 28.0, Mean Corpuscular Hemoglobin Concent 33.4, Red Cell Distribution Width 12.9, Platelet Count 415, Mean Platelet Volume 5.4L, Neutrophils (%) (Auto) 49.9, Lymphocytes ( %) (Auto) 38.0, Monocytes (%) (Auto) 6.7, Eosinophils (%) (Auto) 4.5H, Basophils (%) (Auto) 0.9, Sodium Level 137, Potassium Level 4.1, Chloride Level 102, Carbon Dioxide Level 26, Anion Gap 9, Blood Urea Nitrogen 13, Creatinine 1.0, Estimat Glomerular Filtration Rate > 60, Glucose Level 90, Calcium Level 9.3, Total Bilirubin 0.2, Aspartate Amino Transf (AST/SGOT) 14L, Alanine Aminotransferase (ALT/SGPT) 26, Alkaline Phosphatase 94, Pro-B-Type Natriuretic Peptide 1441H, Total Protein 7.5, Albumin 2.9L, Globulin 4.6, Albumin/Globulin Ratio 0.6L Current Medications Medications (Trade) Dose Ordered Sig/Penny Route PRN Reason Start Time Stop Time Status Last Admin Dose Admin Albuterol/ Ipratropium (Albuterol/ Ipratropium) 3 ml EVERY 6 HOURS PRN HHN Shortness of Breath 10/12/17 18:00 10/16/17 04:59 Albuterol/ Ipratropium (Albuterol/ Ipratropium) 3 ml Q6HRT HHN 10/12/17 17:00 10/16/17 04:59 10/13/17 13:16 Amlodipine Besylate (Norvasc) 10 mg DAILY GT 10/12/17 17:00 11/10/17 08:59 10/13/17 08:31 Ceftriaxone Sodium 1 gm/ Dextrose 55 ml @ 110 mls/hr Q24H IVPB 10/12/17 18:00 10/18/17 17:59 10/12/17 17:15 Clonidine HCl (Catapres Tab) 0.1 mg Q4HR PRN ORAL For High Blood Pressure 10/12/17 17:00 11/10/17 01:29 Enoxaparin Sodium (Lovenox) 40 mg DAILY SUBQ 10/13/17 09:00 11/10/17 08:59 10/13/17 08:33 Haloperidol (Haldol) 1 mg Q8HR PRN GT Agitation 10/12/17 22:00 11/10/17 04:44 Hydralazine HCl (Apresoline) 10 mg EVERY 4 HOURS PRN GT For High Blood Pressure 10/12/17 17:00 11/10/17 04:59 Hydromorphone HCl (Dilaudid) 0.5 mg Q4H PRN IVP For Pain 10/12/17 19:45 10/18/17 19:44 10/13/17 11:00 Iron Sucrose 100 mg/Sodium Chloride 60 ml @ 240 mls/hr BEDTIME IV 10/13/17 21:00 10/17/17 21:14 Lorazepam (Ativan 2mg/ml 1ml) 1 mg Q4H PRN IV For Anxiety 10/12/17 18:00 10/18/17 05:59 10/13/17 06:15 Lorazepam (Ativan) 1 mg Q12HR PRN GT For Anxiety 10/12/17 21:00 10/18/17 04:44 Metoprolol Tartrate (Lopressor) 50 mg EVERY 12 HOURS GT 10/12/17 21:00 11/10/17 08:59 10/13/17 08:31 Metronidazole (Flagyl) 500 mg Q8HR ORAL 10/12/17 22:00 10/18/17 21:59 10/13/17 05:48 Ondansetron HCl (Zofran) 4 mg Q8HR PRN IM Nausea & Vomiting 10/12/17 22:00 11/10/17 01:14 Pantoprazole (Protonix) 20 mg DAILY ORAL 10/13/17 09:00 11/10/17 08:59 10/13/17 08:32 Ropinirole HCl (Requip) 0.5 mg BEDTIME ORAL 10/12/17 21:00 11/10/17 20:59 10/12/17 20:40 Thiamine HCl (Vitamin B1) 100 mg DAILY GT 10/13/17 09:00 11/10/17 08:59 10/13/17 08:32 Ranjith Arora MD Oct 13, 2017 13:29
--- NOTE | 2017-10-13 13:45 | Progress Note ---
DATE: 10/12/2017 SUBJECTIVE: The patient is awake, alert, afebrile, hemodynamically stable, but . PHYSICAL EXAMINATION: VITAL SIGNS: Blood pressure 127/81, pulse 82, respirations were 18, and temperature 98.1. HEENT: Eyes were normal. ENT, mucous membranes were moist and intact. NECK: Supple with no JVD without lymph nodes. LUNGS: Clear. HEART: Normal sounds with regular beat. ABDOMEN: Soft and nontender with normal bowel sounds. EXTREMITIES: Warm without cyanosis, clubbing, or edema. LABORATORY AND DIAGNOSTIC DATA: Hemoglobin is 10.9, hematocrit 34.7, MCV of 85, WBC of 10.6, and platelets is 446,000. BUN and creatinine is 14 and 1.1 respectively. Her sodium is 138, potassium 3.9, chloride 104, CO2 is 25, phosphorus is 3.5, and magnesium is 1.9. Iron is 22 , O2 saturation is 100%. TSH was 0.8 and is 183. SGOT, SGPT, and alkaline phosphatase are normal. Iron binding capacity 227 and saturation was 10. The patient has laboratory done today. The patient normal. IMPRESSION: The patient is . Repeat laboratory tests will be done in the a.m. Lucas Dong M.D. DR: CRUZ JOB#: [id number] CC:
[2017-10-13 16:00] VITALS: BP 119/68
--- NOTE | 2017-10-13 16:38 | General Progress Note ---
Assessment/Plan Status: stable Assessment/Plan 1. Anemia due to underlying chronic disease. Consider to send out workup if hemoglobin less than 10,currently is borderline. --> Current Hgb at 9.3, workup to be obtained. --> Hgb goal above 7 2. Leukocytosis likely secondary to reactive process related to underlying infection. --> She has been by ID service. --> Currently on ceftriaxone --> Current WBC at 9.3, wnl 3. Thrombocytosis related to underlying anemia. Potential of methamphetamine withdrawal. --> Current PLT at 415, wnl 4. Chronic respiratory failure, status post trach. 5. Dysphagia, status post PEG tube. 6. Aortic dissection. The time the note was entered does not necessarily correspond to the time the patient was seen. Subjective Date patient seen: Oct 13, 2017 ROS Limited/Unobtainable: Yes Hematologic/Lymphatic: Reports: anemia Allergies: Coded Allergies: No Known Allergies (Unverified , 10/10/17) All Systems: reviewed and negative except above Subjective Patient positive for VRE rectum and MRSA nares. H/H stable. Objective Last 24 Hour Vital Signs Date Time Temp Pulse Resp B/P (MAP) Pulse Ox O2 Delivery O2 Flow Rate FiO2 10/13/17 13:32 Trach Collar 8.0 30 10/13/17 13:31 99 Trach Collar 8.0 30 10/13/17 13:31 84 18 100 Trach Collar 8.0 30 10/13/17 13:30 30 10/13/17 13:17 77 18 98 T-piece 8.0 30 10/13/17 12:00 98.6 71 18 113/57 (75) 93 98.6 10/13/17 11:30 97.7 10/13/17 09:00 T-piece 10/13/17 08:31 77 115/67 10/13/17 08:31 77 115/67 10/13/17 08:00 97.7 77 18 115/67 (83) 100 97.7 10/13/17 07:30 81 18 99 T-piece 8.0 30 10/13/17 07:30 30 10/13/17 07:26 T-piece 8.0 30 10/13/17 07:25 98 T-piece 8.0 30 10/13/17 07:23 79 18 98 T-piece 8.0 30 10/13/17 04:42 97.9 79 20 106/53 (70) 96 97.9 10/13/17 04:33 98.2 10/13/17 01:37 78 18 99 T-piece 8.0 30 10/13/17 01:27 76 18 97 T-piece 8.0 30 10/13/17 01:27 97 T-piece 8.0 30 10/13/17 01:27 30 10/13/17 01:27 T-piece 8.0 30 10/13/17 00:30 98.2 71 19 113/68 (83) 93 98.2 10/13/17 00:26 98.2 10/12/17 20:40 82 137/81 10/12/17 20:00 T-piece 10/12/17 19:42 98.2 10/12/17 19:40 98.2 82 18 137/81 (99) 95 98.2 10/12/17 19:33 88 20 99 T-piece 8.0 30 10/12/17 19:23 30 10/12/17 19:23 85 20 97 T-piece 8.0 30 10/12/17 19:23 97 T-piece 8.0 30 10/12/17 19:23 T-piece 8.0 30 10/12/17 17:16 80 132/77 10/12/17 16:41 98.2 80 22 132/77 (95) 100 98.2 Intake and Output 10/12/17 10/13/17 19:00 07:00 Intake Total 600 ml 520 ml Output Total 300 ml Balance 300 ml 520 ml Free Water 60 ml 40 ml Tube Feeding 540 ml 480 ml Output Urine Total 300 ml # Voids 2 Laboratory Tests 10/13/17 05:25: White Blood Count 9.3, Red Blood Count 4.00L, Hemoglobin 11.2L, Hematocrit 33.5L , Mean Corpuscular Volume 84, Mean Corpuscular Hemoglobin 28.0, Mean Corpuscular Hemoglobin Concent 33.4, Red Cell Distribution Width 12.9, Platelet Count 415, Mean Platelet Volume 5.4L, Neutrophils (%) (Auto) 49.9, Lymphocytes ( %) (Auto) 38.0, Monocytes (%) (Auto) 6.7, Eosinophils (%) (Auto) 4.5H, Basophils (%) (Auto) 0.9, Sodium Level 137, Potassium Level 4.1, Chloride Level 102, Carbon Dioxide Level 26, Anion Gap 9, Blood Urea Nitrogen 13, Creatinine 1.0, Estimat Glomerular Filtration Rate > 60, Glucose Level 90, Calcium Level 9.3, Total Bilirubin 0.2, Aspartate Amino Transf (AST/SGOT) 14L, Alanine Aminotransferase (ALT/SGPT) 26, Alkaline Phosphatase 94, Pro-B-Type Natriuretic Peptide 1441H, Total Protein 7.5, Albumin 2.9L, Globulin 4.6, Albumin/Globulin Ratio 0.6L Height (Feet): 5 Height (Inches): 4.00 Weight (Pounds): 142 General Appearance: no apparent distress EENT: PERRL/EOMI Neck: normal alignment Cardiovascular: normal peripheral pulses Respiratory/Chest: no respiratory distress Abdomen: soft Evan Muhammad MD Oct 13, 2017 16:38
--- NOTE | 2017-10-13 17:51 | Infectious Diseases Prog Note ---
Assessment/Plan Assessment/Plan Assessment: Leukocytosis, SP- likely 2ry to aspiration PNA- and probable UTI -CXR 10/13: Slightly increasing parenchymal opacities at the left lung base. This may be atelectasis given low lung volumes. Pneumonia not excluded. Correlate clinically. No change otherwise.\ -CT abd/p: Patchy consolidative opacities within the lung. Suspect pneumonia. Correlate clinically. Prior sternotomy with the probable graft involving the aortic root/ascending aorta. Moderate atherosclerotic vascular disease as described above. 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 Moderate stool allograft suspected bladder stones. Previous left common femoral artery region surgery. Nature of this is not known. -u/a wbc 5-10, nit +, leuk +1; ucx >100k Enterobacter aerogenes (R ancef, nitro; otherwise S) -CXR: Elevated right hemidiaphragm with the right basal atelectasis. Cardiomegaly -sp cx GPC -Bcx NTD Afebrile JAVIER, improving CT head: No mass effect, edema or acute bleed. Right maxillary fluid retention cyst. Prominence of the posterior aspect of the nasal turbinates versus soft palate. This is not adequately evaluated on the current exam. Evaluate further as needed. HTN anxiety chronic resp failure s/p trach s/p PEG aortic dissection s/p repair early 2017 [place] resident Plan: -Continue Ceftriaxone #4 and PO Flagyl #3 to cover for aspiration -Add IV Vancomycin pending sp cx ID GPC -f/u cx -Monitor CBC/CMP, temperatures -Aspiration precautions -Speech therapy f/u Thank you for this consultation. Will continue to follow along with you. Discussed with RN. Subjective Allergies: Coded Allergies: No Known Allergies (Unverified , 10/10/17) Subjective afebrile no leukocytosis Bcx NTD Objective Vital Signs Last 24 Hour Vital Signs Date Time Temp Pulse Resp B/P (MAP) Pulse Ox O2 Delivery O2 Flow Rate FiO2 10/13/17 16:08 98.2 10/13/17 16:00 98.2 79 18 119/68 (85) 97 98.2 10/13/17 13:32 Trach Collar 8.0 30 10/13/17 13:31 99 Trach Collar 8.0 30 10/13/17 13:31 84 18 100 Trach Collar 8.0 30 10/13/17 13:30 30 10/13/17 13:17 77 18 98 T-piece 8.0 30 10/13/17 12:00 98.6 71 18 113/57 (75) 93 98.6 10/13/17 09:00 T-piece 10/13/17 08:31 77 115/67 10/13/17 08:31 77 115/67 10/13/17 08:00 97.7 77 18 115/67 (83) 100 97.7 10/13/17 07:30 81 18 99 T-piece 8.0 30 10/13/17 07:30 30 10/13/17 07:26 T-piece 8.0 30 10/13/17 07:25 98 T-piece 8.0 30 10/13/17 07:23 79 18 98 T-piece 8.0 30 10/13/17 04:42 97.9 79 20 106/53 (70) 96 97.9 10/13/17 04:33 98.2 10/13/17 01:37 78 18 99 T-piece 8.0 30 10/13/17 01:27 76 18 97 T-piece 8.0 30 10/13/17 01:27 97 T-piece 8.0 30 10/13/17 01:27 30 10/13/17 01:27 T-piece 8.0 30 10/13/17 00:30 98.2 71 19 113/68 (83) 93 98.2 10/13/17 00:26 98.2 10/12/17 20:40 82 137/81 10/12/17 20:00 T-piece 10/12/17 19:42 98.2 10/12/17 19:40 98.2 82 18 137/81 (99) 95 98.2 10/12/17 19:33 88 20 99 T-piece 8.0 30 10/12/17 19:23 30 10/12/17 19:23 85 20 97 T-piece 8.0 30 10/12/17 19:23 97 T-piece 8.0 30 10/12/17 19:23 T-piece 8.0 30 Height (Feet): 5 Height (Inches): 4.00 Weight (Pounds): 142 Objective General Appearance: WD/WN, no apparent distress Lines, tubes and drains: peripheral HEENT: normocephalic, atraumatic Respiratory/Chest: chest wall non-tender, lungs clear, normal breath sounds Cardiovascular/Chest: normal peripheral pulses, normal rate Abdomen: normal bowel sounds Extremities: normal range of motion Microbiology Date/Time Source Procedure Growth Status 10/10/17 19:30 Blood Blood Culture - Preliminary NO GROWTH AFTER 48 HOURS Resulted 10/10/17 19:30 Blood Blood Culture - Preliminary NO GROWTH AFTER 48 HOURS Resulted 10/11/17 17:45 Sputum Induced Gram Stain - Final Resulted 10/11/17 17:45 Sputum Culture - Preliminary Gram Positive Cocci Resulted 10/10/17 23:32 Nasal Nares MRSA Culture - Final Staphylococcus Aureus - Mrsa Complete 10/10/17 20:19 Urine,Clean Catch Urine Culture - Final Enterobacter Aerogenes Complete 10/10/17 23:32 Rectum - Final NO CARBAPENEM-RESISTANT ENTEROBACTERI... Complete 10/10/17 23:32 Rectum VRE Culture - Final Enterococcus Faecalis - Vre Complete Laboratory Tests Test 10/13/17 05:25 White Blood Count 9.3 K/UL (4.8-10.8) Red Blood Count 4.00 M/UL (4.20-5.40) L Hemoglobin 11.2 G/DL (12.0-16.0) L Hematocrit 33.5 % (37.0-47.0) L Mean Corpuscular Volume 84 FL (80-99) Mean Corpuscular Hemoglobin 28.0 PG (27.0-31.0) Mean Corpuscular Hemoglobin Concent 33.4 G/DL (32.0-36.0) Red Cell Distribution Width 12.9 % (11.6-14.8) Platelet Count 415 K/UL (150-450) Mean Platelet Volume 5.4 FL (6.5-10.1) L Neutrophils (%) (Auto) 49.9 % (45.0-75.0) Lymphocytes (%) (Auto) 38.0 % (20.0-45.0) Monocytes (%) (Auto) 6.7 % (1.0-10.0) Eosinophils (%) (Auto) 4.5 % (0.0-3.0) H Basophils (%) (Auto) 0.9 % (0.0-2.0) Sodium Level 137 MMOL/L (136-145) Potassium Level 4.1 MMOL/L (3.5-5.1) Chloride Level 102 MMOL/L (98-107) Carbon Dioxide Level 26 MMOL/L (21-32) Anion Gap 9 mmol/L (5-15) Blood Urea Nitrogen 13 mg/dL (7-18) Creatinine 1.0 MG/DL (0.55-1.30) Estimat Glomerular Filtration Rate > 60 mL/min (>60) Glucose Level 90 MG/DL (74-106) Calcium Level 9.3 MG/DL (8.5-10.1) Total Bilirubin 0.2 MG/DL (0.2-1.0) Aspartate Amino Transf (AST/SGOT) 14 U/L (15-37) L Alanine Aminotransferase (ALT/SGPT) 26 U/L (12-78) Alkaline Phosphatase 94 U/L (46-116) Pro-B-Type Natriuretic Peptide 1441 pg/mL (0-125) H Total Protein 7.5 G/DL (6.4-8.2) Albumin 2.9 G/DL (3.4-5.0) L Globulin 4.6 g/dL Albumin/Globulin Ratio 0.6 (1.0-2.7) L Current Medications Medications (Trade) Dose Ordered Sig/Penny Route PRN Reason Start Time Stop Time Status Last Admin Dose Admin Albuterol/ Ipratropium (Albuterol/ Ipratropium) 3 ml EVERY 6 HOURS PRN HHN Shortness of Breath 10/12/17 18:00 10/16/17 04:59 Albuterol/ Ipratropium (Albuterol/ Ipratropium) 3 ml Q6HRT HHN 10/12/17 17:00 10/16/17 04:59 10/13/17 13:16 Amlodipine Besylate (Norvasc) 10 mg DAILY GT 10/12/17 17:00 11/10/17 08:59 10/13/17 08:31 Ceftriaxone Sodium 1 gm/ Dextrose 55 ml @ 110 mls/hr Q24H IVPB 10/12/17 18:00 10/18/17 17:59 10/12/17 17:15 Clonidine HCl (Catapres Tab) 0.1 mg Q4HR PRN ORAL For High Blood Pressure 10/12/17 17:00 11/10/17 01:29 Enoxaparin Sodium (Lovenox) 40 mg DAILY SUBQ 10/13/17 09:00 11/10/17 08:59 10/13/17 08:33 Haloperidol (Haldol) 1 mg Q8HR PRN GT Agitation 10/12/17 22:00 11/10/17 04:44 Hydralazine HCl (Apresoline) 10 mg EVERY 4 HOURS PRN GT For High Blood Pressure 10/12/17 17:00 11/10/17 04:59 Hydromorphone HCl (Dilaudid) 0.5 mg Q4H PRN IVP For Pain 10/12/17 19:45 10/18/17 19:44 10/13/17 15:38 Iron Sucrose 100 mg/Sodium Chloride 60 ml @ 240 mls/hr BEDTIME IV 10/13/17 21:00 10/17/17 21:14 Lorazepam (Ativan 2mg/ml 1ml) 1 mg Q4H PRN IV For Anxiety 10/12/17 18:00 10/18/17 05:59 10/13/17 14:17 Lorazepam (Ativan) 1 mg Q12HR PRN GT For Anxiety 10/12/17 21:00 10/18/17 04:44 Metoprolol Tartrate (Lopressor) 50 mg EVERY 12 HOURS GT 10/12/17 21:00 11/10/17 08:59 10/13/17 08:31 Metronidazole (Flagyl) 500 mg Q8HR ORAL 10/12/17 22:00 10/18/17 21:59 10/13/17 14:14 Ondansetron HCl (Zofran) 4 mg Q8HR PRN IM Nausea & Vomiting 10/12/17 22:00 11/10/17 01:14 Pantoprazole (Protonix) 20 mg DAILY ORAL 10/13/17 09:00 11/10/17 08:59 10/13/17 08:32 Ropinirole HCl (Requip) 0.5 mg BEDTIME ORAL 10/12/17 21:00 11/10/17 20:59 10/12/17 20:40 Thiamine HCl (Vitamin B1) 100 mg DAILY GT 10/13/17 09:00 11/10/17 08:59 10/13/17 08:32 Doreen Nino M.D. Oct 13, 2017 17:51
[2017-10-13] MEDS: cefTRIAXone 1 GM in D5W 55 ML IVPB SCH (18:22)
[2017-10-13 19:36] VITALS: BP 115/66
[2017-10-13] MEDS: Vancomycin 750mg/NS 250ml IVPB SCH (19:40)
[2017-10-13] MEDS: rOPINIRole 0.25mg tab ORAL SCH (20:51)
[2017-10-13] MEDS: Iron Sucrose 100 MG in NS 55 ML IV SCH (21:59)
[2017-10-14 00:20] VITALS: BP 116/60
[2017-10-14] MEDS: Hydromorphone 0.5mg/0.5ml inj IVP PRN ×5 (00:49→20:02)
[2017-10-14] MEDS: Albuterol/Ipratropium 3ml neb HHN SCH ×5 (00:50→19:30)
--- NOTE | 2017-10-14 02:30 | Progress Note ---
DATE: 10/13/2017 SUBJECTIVE: The patient is awake, alert, afebrile, and hemodynamically stable. PHYSICAL EXAMINATION: VITAL SIGNS: Blood pressure is 150/65, pulse is 88, respirations were 18, and temperature 97.7 degrees. HEENT: Eyes were normal. ENT, mucous membranes moist and intact. NECK: Supple with no JVD without lymph nodes. LUNGS: Clear. HEART: Normal sounds with regular beats. There is no tachycardia at rest. ABDOMEN: Soft and nontender with normal bowel sounds. EXTREMITIES: Warm without cyanosis, clubbing, or edema. LABORATORY AND DIAGNOSTIC DATA: Hemoglobin is 11.2, hematocrit 33.5 with MCV of 84, WBC of 9.3 and platelets is 415. Her BUN and creatinine are 13 and 1.0 respectively. Her sodium is 137, potassium 4.1, chloride 102, and CO2 26. SGOT and SGPT are normal. Her iron binding capacity is 227 and saturation is 10. IMPRESSION AND PLAN: The patient has low back pain for which she takes the Dilaudid infrequently. She has minimal normocytic anemia; however, she does not have iron deficiency. She has been on ferrous sulfate b.i.d. Physical therapy was ordered today, was not accomplished as yet. Repeat laboratory tests will be done in the a.m. and physical therapy and clear the patient. The patient can be discharged tomorrow back to the extended care facility. Lucsa Dong M.D. DR: ROBERT JOB#: [id number] CC:
[2017-10-14] MEDS: LORazepam Inj 2mg/ml 1ml IV PRN ×3 (02:43→20:02)
[2017-10-14 04:26] VITALS: BP 121/67
[2017-10-14 05:39] LABS: BASOPHILS % (AUTO) 0.8 % (0.0-2.0); EOSINOPHILS % (AUTO) 5.7 % (0.0-3.0); HEMATOCRIT 32.8 % (37.0-47.0); HEMOGLOBIN 10.7 G/DL (12.0-16.0); LYMPHOCYTES % (AUTO) 35.5 % (20.0-45.0); MEAN CORPUSCULAR VOLUME 84 FL (80-99); MONOCYTES % (AUTO) 7.2 % (1.0-10.0); NEUTROPHILS % (AUTO) 50.7 % (45.0-75.0); PLATELET COUNT 414 K/UL (150-450); RED BLOOD COUNT 3.91 M/UL (4.20-5.40); RED CELL DISTRIBUTION WIDTH 13.3 % (11.6-14.8)
[2017-10-14] MEDS: metroNIDAZOLE 500mg tab ORAL SCH ×3 (05:46→21:34)
[2017-10-14 06:01] LABS: ANION GAP 6 mmol/L (5-15); BLOOD UREA NITROGEN 13 mg/dL (7-18); CALCIUM 9.3 MG/DL (8.5-10.1); CARBON DIOXIDE 27 MMOL/L (21-32); CHLORIDE 103 MMOL/L (98-107); POTASSIUM 4.1 MMOL/L (3.5-5.1); SODIUM 136 MMOL/L (136-145)
[2017-10-14] MEDS: Vancomycin 750mg/NS 250ml IVPB SCH ×2 (06:16→18:09)
--- NOTE | 2017-10-14 07:39 | Infectious Diseases Prog Note ---
Assessment/Plan Assessment/Plan Leukocytosis, SP- likely 2ry to aspiration PNA- and probable UTI -CXR 10/13: Slightly increasing parenchymal opacities at the left lung base. This may be atelectasis given low lung volumes. Pneumonia not excluded. Correlate clinically. No change otherwise.\ -CT abd/p: Patchy consolidative opacities within the lung. Suspect pneumonia. Correlate clinically. Prior sternotomy with the probable graft involving the aortic root/ascending aorta. Moderate atherosclerotic vascular disease as described above. 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 Moderate stool allograft suspected bladder stones. Previous left common femoral artery region surgery. Nature of this is not known. -u/a wbc 5-10, nit +, leuk +1; ucx >100k Enterobacter aerogenes (R ancef, nitro; otherwise S) -CXR: Elevated right hemidiaphragm with the right basal atelectasis. Cardiomegaly -sp cx MRSA -Bcx NTD Afebrile JAVIER, improving CT head: No mass effect, edema or acute bleed. Right maxillary fluid retention cyst. Prominence of the posterior aspect of the nasal turbinates versus soft palate. This is not adequately evaluated on the current exam. Evaluate further as needed. HTN anxiety chronic resp failure s/p trach s/p PEG aortic dissection s/p repair early 2017 [place] resident Plan: -Continue Ceftriaxone #/ and PO Flagyl #4/ to cover for aspiration -Add IV Vancomycin -f/u cx -Monitor CBC/CMP, temperatures -Aspiration precautions -Speech therapy f/u Thank you for this consultation. Will continue to follow along with you. Subjective Allergies: Coded Allergies: No Known Allergies (Unverified , 10/10/17) Subjective No acute events Afebrile Objective Vital Signs Last 24 Hour Vital Signs Date Time Temp Pulse Resp B/P (MAP) Pulse Ox O2 Delivery O2 Flow Rate FiO2 10/14/17 06:16 97.3 10/14/17 05:46 97.3 10/14/17 04:26 97.3 72 20 121/67 (85) 93 97.3 10/14/17 01:44 Trach Collar 8.0 30 10/14/17 01:43 Trach Collar 8.0 30 10/14/17 01:43 97 Trach Collar 8.0 30 10/14/17 01:43 30 10/14/17 01:42 88 18 97 T-piece 8.0 30 10/14/17 00:49 97.9 10/14/17 00:20 97.9 71 20 116/60 (78) 97 97.9 10/13/17 20:51 85 115/66 10/13/17 20:51 97.7 10/13/17 20:51 T-piece 10/13/17 20:17 85 18 99 Trach Collar 8.0 30 10/13/17 20:02 Trach Collar 8.0 30 10/13/17 20:02 30 10/13/17 20:02 94 Trach Collar 8.0 30 10/13/17 20:01 81 18 94 T-piece 8.0 30 10/13/17 19:36 97.7 85 20 115/66 (82) 97 97.7 10/13/17 16:00 98.2 79 18 119/68 (85) 97 98.2 10/13/17 13:32 Trach Collar 8.0 30 10/13/17 13:31 99 Trach Collar 8.0 30 10/13/17 13:31 84 18 100 Trach Collar 8.0 30 10/13/17 13:30 30 10/13/17 13:17 77 18 98 T-piece 8.0 30 10/13/17 12:00 98.6 71 18 113/57 (75) 93 98.6 10/13/17 09:00 T-piece 10/13/17 08:31 77 115/67 10/13/17 08:31 77 115/67 10/13/17 08:00 97.7 77 18 115/67 (83) 100 97.7 Height (Feet): 5 Height (Inches): 4.00 Weight (Pounds): 142 Objective General Appearance: NAD HEENT: normocephalic, atraumatic, Trach Respiratory/Chest: chest wall non-tender, lungs clear, normal breath sounds Cardiovascular/Chest: normal peripheral pulses, normal rate Abdomen: normal bowel sounds Extremities: normal range of motion Microbiology Date/Time Source Procedure Growth Status 10/11/17 17:45 Sputum Induced Gram Stain - Final Complete 10/11/17 17:45 Sputum Culture - Final Staphylococcus Aureus - Mrsa Complete Laboratory Tests Test 10/13/17 20:13 10/14/17 04:50 Urine Legionella Antigen Pending White Blood Count 8.0 K/UL (4.8-10.8) Red Blood Count 3.91 M/UL (4.20-5.40) L Hemoglobin 10.7 G/DL (12.0-16.0) L Hematocrit 32.8 % (37.0-47.0) L Mean Corpuscular Volume 84 FL (80-99) Mean Corpuscular Hemoglobin 27.5 PG (27.0-31.0) Mean Corpuscular Hemoglobin Concent 32.7 G/DL (32.0-36.0) Red Cell Distribution Width 13.3 % (11.6-14.8) Platelet Count 414 K/UL (150-450) Mean Platelet Volume 5.3 FL (6.5-10.1) L Neutrophils (%) (Auto) 50.7 % (45.0-75.0) Lymphocytes (%) (Auto) 35.5 % (20.0-45.0) Monocytes (%) (Auto) 7.2 % (1.0-10.0) Eosinophils (%) (Auto) 5.7 % (0.0-3.0) H Basophils (%) (Auto) 0.8 % (0.0-2.0) Sodium Level 136 MMOL/L (136-145) Potassium Level 4.1 MMOL/L (3.5-5.1) Chloride Level 103 MMOL/L (98-107) Carbon Dioxide Level 27 MMOL/L (21-32) Anion Gap 6 mmol/L (5-15) Blood Urea Nitrogen 13 mg/dL (7-18) Creatinine 1.0 MG/DL (0.55-1.30) Estimat Glomerular Filtration Rate > 60 mL/min (>60) Glucose Level 94 MG/DL (74-106) Calcium Level 9.3 MG/DL (8.5-10.1) Thyroid Stimulating Hormone (TSH) 1.216 uiU/mL (0.358-3.740) Free Thyroxine 2.17 NG/DL (0.76-1.46) H Current Medications Medications (Trade) Dose Ordered Sig/Penny Route PRN Reason Start Time Stop Time Status Last Admin Dose Admin Albuterol/ Ipratropium (Albuterol/ Ipratropium) 3 ml EVERY 6 HOURS PRN HHN Shortness of Breath 10/12/17 18:00 10/16/17 04:59 Albuterol/ Ipratropium (Albuterol/ Ipratropium) 3 ml Q6HRT HHN 10/12/17 17:00 10/16/17 04:59 10/13/17 19:57 Amlodipine Besylate (Norvasc) 10 mg DAILY GT 10/12/17 17:00 11/10/17 08:59 10/13/17 08:31 Ceftriaxone Sodium 1 gm/ Dextrose 55 ml @ 110 mls/hr Q24H IVPB 10/12/17 18:00 10/18/17 17:59 10/13/17 18:22 Clonidine HCl (Catapres Tab) 0.1 mg Q4HR PRN ORAL For High Blood Pressure 10/12/17 17:00 11/10/17 01:29 Enoxaparin Sodium (Lovenox) 40 mg DAILY SUBQ 10/13/17 09:00 11/10/17 08:59 10/13/17 08:33 Haloperidol (Haldol) 1 mg Q8HR PRN GT Agitation 10/12/17 22:00 11/10/17 04:44 Hydralazine HCl (Apresoline) 10 mg EVERY 4 HOURS PRN GT For High Blood Pressure 10/12/17 17:00 11/10/17 04:59 Hydromorphone HCl (Dilaudid) 0.5 mg Q4H PRN IVP For Pain 10/12/17 19:45 10/18/17 19:44 10/14/17 05:46 Iron Sucrose 100 mg/Sodium Chloride 60 ml @ 240 mls/hr BEDTIME IV 10/13/17 21:00 10/17/17 21:14 10/13/17 21:59 Lorazepam (Ativan 2mg/ml 1ml) 1 mg Q4H PRN IV For Anxiety 10/12/17 18:00 10/18/17 05:59 10/14/17 02:43 Lorazepam (Ativan) 1 mg Q12HR PRN GT For Anxiety 10/12/17 21:00 10/18/17 04:44 Metoprolol Tartrate (Lopressor) 50 mg EVERY 12 HOURS GT 10/12/17 21:00 11/10/17 08:59 10/13/17 20:51 Metronidazole (Flagyl) 500 mg Q8HR ORAL 10/12/17 22:00 10/18/17 21:59 10/14/17 05:46 Ondansetron HCl (Zofran) 4 mg Q8HR PRN IM Nausea & Vomiting 10/12/17 22:00 11/10/17 01:14 Pantoprazole (Protonix) 20 mg DAILY ORAL 10/13/17 09:00 11/10/17 08:59 10/13/17 08:32 Ropinirole HCl (Requip) 0.5 mg BEDTIME ORAL 10/12/17 21:00 11/10/17 20:59 10/13/17 20:51 Thiamine HCl (Vitamin B1) 100 mg DAILY GT 10/13/17 09:00 11/10/17 08:59 10/13/17 08:32 Vancomycin HCl (Vanco rx to dose) 1 ea DAILY PRN MISC Per rx protocol 10/13/17 18:00 11/12/17 17:59 Vancomycin/Sodium Chloride 250 ml @ 166.667 mls/hr Q12HR@0700,1900 IVPB 10/13/17 19:00 10/18/17 18:59 10/14/17 06:16 Deni Gilbert MD Oct 14, 2017 07:39
[2017-10-14 08:00] VITALS: BP 133/78
[2017-10-14] MEDS: Metoprolol Tartrate 50mg tab GT SCH ×2 (08:26→21:34)
[2017-10-14] MEDS: Thiamine 100mg tab GT SCH (08:26)
[2017-10-14] MEDS: Enoxaparin 40mg Inj SUBQ SCH (08:27)
[2017-10-14 12:00] VITALS: BP 112/71
[2017-10-14 15:40] VITALS: BP 136/82
[2017-10-14] MEDS: cefTRIAXone 1 GM in D5W 55 ML IVPB SCH (17:28)
--- NOTE | 2017-10-14 18:14 | General Progress Note ---
Assessment/Plan Status: stable Assessment/Plan 1. Anemia due to underlying chronic disease. Consider to send out workup if hemoglobin less than 10,currently is borderline. --> Currently, Hgb at 10.7. No w/u required. --> Hgb goal above 7 2. Leukocytosis likely secondary to reactive process related to underlying infection. --> She has been by ID service. --> Currently on ceftriaxone --> Current WBC at 8.0, wnl 3. Thrombocytosis related to underlying anemia. Potential of methamphetamine withdrawal. --> Current PLT at 415, wnl 4. Chronic respiratory failure, status post trach. 5. Dysphagia, status post PEG tube. 6. Aortic dissection. The time the note was entered does not necessarily correspond to the time the patient was seen. Subjective Date patient seen: Oct 14, 2017 ROS Limited/Unobtainable: Yes Hematologic/Lymphatic: Reports: anemia Allergies: Coded Allergies: No Known Allergies (Unverified , 10/10/17) All Systems: reviewed and negative except above Subjective Pt awake and alert. No acute events. H/H stable. Objective Last 24 Hour Vital Signs Date Time Temp Pulse Resp B/P (MAP) Pulse Ox O2 Delivery O2 Flow Rate FiO2 10/14/17 15:40 98.9 72 18 136/82 (100) 95 98.9 10/14/17 15:22 97.7 10/14/17 14:52 97.7 10/14/17 14:36 84 18 99 Trach Collar 8.0 30 10/14/17 14:28 Trach Collar 8.0 30 10/14/17 14:28 88 18 97 T-piece 8.0 30 10/14/17 14:28 97 Trach Collar 8.0 30 10/14/17 14:28 30 10/14/17 12:00 97.7 75 18 112/71 (85) 95 97.7 10/14/17 08:43 T-piece 12.0 10/14/17 08:26 75 133/78 10/14/17 08:25 75 133/78 10/14/17 08:06 87 18 99 Trach Collar 8.0 30 10/14/17 08:00 98.6 75 20 133/78 (96) 92 98.6 10/14/17 07:58 84 18 96 T-piece 8.0 30 10/14/17 07:58 30 10/14/17 07:58 Trach Collar 8.0 30 10/14/17 07:58 96 Trach Collar 8.0 30 10/14/17 05:46 97.3 10/14/17 04:26 97.3 72 20 121/67 (85) 93 97.3 10/14/17 01:44 Trach Collar 8.0 30 10/14/17 01:43 Trach Collar 8.0 30 10/14/17 01:43 97 Trach Collar 8.0 30 10/14/17 01:43 30 10/14/17 01:42 88 18 97 T-piece 8.0 30 10/14/17 00:49 97.9 10/14/17 00:20 97.9 71 20 116/60 (78) 97 97.9 10/13/17 20:51 85 115/66 10/13/17 20:51 97.7 10/13/17 20:51 T-piece 10/13/17 20:17 85 18 99 Trach Collar 8.0 30 10/13/17 20:02 Trach Collar 8.0 30 10/13/17 20:02 30 10/13/17 20:02 94 Trach Collar 8.0 30 10/13/17 20:01 81 18 94 T-piece 8.0 30 10/13/17 19:36 97.7 85 20 115/66 (82) 97 97.7 Intake and Output 10/13/17 10/14/17 19:00 07:00 Intake Total 830 ml 830.000 ml Balance 830 ml 830.000 ml Free Water 110 ml 40 ml IV Total 310.000 ml Tube Feeding 720 ml 480 ml # Voids 3 Laboratory Tests 10/13/17 20:13: Urine Legionella Antigen [Pending] 10/14/17 04:50: White Blood Count 8.0, Red Blood Count 3.91L, Hemoglobin 10.7L, Hematocrit 32.8L , Mean Corpuscular Volume 84, Mean Corpuscular Hemoglobin 27.5, Mean Corpuscular Hemoglobin Concent 32.7, Red Cell Distribution Width 13.3, Platelet Count 414, Mean Platelet Volume 5.3L, Neutrophils (%) (Auto) 50.7, Lymphocytes ( %) (Auto) 35.5, Monocytes (%) (Auto) 7.2, Eosinophils (%) (Auto) 5.7H, Basophils (%) (Auto) 0.8, Sodium Level 136, Potassium Level 4.1, Chloride Level 103, Carbon Dioxide Level 27, Anion Gap 6, Blood Urea Nitrogen 13, Creatinine 1.0, Estimat Glomerular Filtration Rate > 60, Glucose Level 94, Calcium Level 9.3, Thyroid Stimulating Hormone (TSH) 1.216, Free Thyroxine 2.17H Height (Feet): 5 Height (Inches): 4.00 Weight (Pounds): 142 General Appearance: no apparent distress EENT: PERRL/EOMI Neck: normal alignment Cardiovascular: normal peripheral pulses Respiratory/Chest: no respiratory distress Abdomen: soft Evan Muhammad MD Oct 14, 2017 18:14
[2017-10-14 20:00] VITALS: BP 132/72
[2017-10-14] MEDS: rOPINIRole 0.25mg tab ORAL SCH (21:34)
[2017-10-14] MEDS: Iron Sucrose 100 MG in NS 55 ML IV SCH (21:34)
[2017-10-15] VITALS: BP 125/69
[2017-10-15] MEDS: Hydromorphone 0.5mg/0.5ml inj IVP PRN ×2 (00:33→04:34)
[2017-10-15] MEDS: LORazepam Inj 2mg/ml 1ml IV PRN ×3 (00:33→11:21)
[2017-10-15] MEDS: Albuterol/Ipratropium 3ml neb HHN SCH ×2 (01:30→08:12)
--- NOTE | 2017-10-15 01:45 | Progress Note ---
DATE: 10/14/2017 "NOTE: POOR AUDIO QUALITY" SUBJECTIVE: The patient is afebrile and hemodynamically stable. physical therapy. Physical therapy admits that the patient would benefit from physical therapy . PHYSICAL EXAMINATION: VITAL SIGNS: Blood pressure is 132/72, his pulse is 97, respirations were 20, and temperature 98.2 degrees. HEENT: Eyes were normal. ENT, mucous membranes were moist and intact. NECK: Supple with no JVD without lymph nodes. LUNGS: Clear. HEART: Normal sounds with regular heartbeat. ABDOMEN: Soft and nontender with normal bowel sounds. EXTREMITIES: Warm without cyanosis, clubbing, or edema. LABORATORY AND DIAGNOSTIC DATA: Hemoglobin is 10.7, hematocrit 32.8 with MCV of 84, WBC of 8.0, and platelets of 414,000. His BUN and creatinine are 13 and 1.0 respectively. Sodium is 136, potassium 4.1, chloride 106, and CO2 is 27. Repeat thyroid function test revealed TSH is normal and T4 is 2.17. ASSESSMENT AND PLAN: The patient is currently on Protonix 20 mg daily, B1 100 mg daily, haloperidol 1 mg q.8 h. p.r.n. for agitation, 0.5 mg q.4 h. p.r.n. Repeat laboratory tests will be done in the morning. Lucas Dong M.D. DR: Miranda JOB#: [id number] CC:
[2017-10-15 04:00] VITALS: BP 123/71
[2017-10-15] MEDS: metroNIDAZOLE 500mg tab ORAL SCH (06:04)
[2017-10-15 06:21] LABS: BASOPHILS % (AUTO) 0.7 % (0.0-2.0); EOSINOPHILS % (AUTO) 5.5 % (0.0-3.0); HEMATOCRIT 34.6 % (37.0-47.0); HEMOGLOBIN 11.2 G/DL (12.0-16.0); LYMPHOCYTES % (AUTO) 34.8 % (20.0-45.0); MEAN CORPUSCULAR VOLUME 84 FL (80-99); MONOCYTES % (AUTO) 7.5 % (1.0-10.0); NEUTROPHILS % (AUTO) 51.5 % (45.0-75.0); PLATELET COUNT 454 K/UL (150-450); RED BLOOD COUNT 4.12 M/UL (4.20-5.40); RED CELL DISTRIBUTION WIDTH 13.1 % (11.6-14.8); WHITE BLOOD COUNT 7.2 K/UL (4.8-10.8)
[2017-10-15 06:42] LABS: ANION GAP 7 mmol/L (5-15); BLOOD UREA NITROGEN 13 mg/dL (7-18); CALCIUM 9.9 MG/DL (8.5-10.1); CARBON DIOXIDE 27 MMOL/L (21-32); CHLORIDE 102 MMOL/L (98-107); POTASSIUM 4.4 MMOL/L (3.5-5.1); SODIUM 136 MMOL/L (136-145)
[2017-10-15 08:00] VITALS: BP 125/76
[2017-10-15] MEDS: Thiamine 100mg tab GT SCH (08:35)
[2017-10-15] MEDS: Vancomycin 750mg/NS 250ml IVPB SCH (08:35)
[2017-10-15] MEDS: Metoprolol Tartrate 50mg tab GT SCH (08:36)
[2017-10-15] MEDS: Enoxaparin 40mg Inj SUBQ SCH (08:42)
[2017-10-15] MEDS ORDERED: Tubing IV Secondary IV ONE (08:51)
[2017-10-15] MEDS ORDERED: PROTONIX40 MG ORAL (10:17)
[2017-10-15] MEDS ORDERED: DUONEB 0.5-3(2.53 ML HHN (10:22)
[2017-10-15] MEDS ORDERED: METRONIDAZOLE500 MG ORAL (10:22)
[2017-10-15] MEDS ORDERED: ROCEPHIN250 MG IM (10:24)
[2017-10-15] MEDS ORDERED: CEFTRIAXON1 GM/50 ML IV ×2 (10:24→10:26)
[2017-10-15] MEDS ORDERED: CATAPRES0.1 MG ORAL (10:27)
[2017-10-15] MEDS ORDERED: PERCOCET 10-321 EAC1 PO (10:30)
[2017-10-15 12:00] VITALS: BP 133/92
--- NOTE | 2017-10-15 15:09 | General Progress Note ---
Assessment/Plan Status: stable Assessment/Plan 1. Anemia due to underlying chronic disease. Consider to send out workup if hemoglobin less than 10,currently is borderline. --> Currently, Hgb at 11.2 No w/u required. --> Hgb goal above 7 2. Leukocytosis likely secondary to reactive process related to underlying infection. --> She has been by ID service. --> Currently on ceftriaxone --> Current WBC at 8.0, wnl 3. Thrombocytosis related to underlying anemia. Potential of methamphetamine withdrawal. --> Current PLT at 415, wnl 4. Chronic respiratory failure, status post trach. 5. Dysphagia, status post PEG tube. 6. Aortic dissection. The time the note was entered does not necessarily correspond to the time the patient was seen. Subjective Date patient seen: Oct 15, 2017 Time patient seen: 07:00 Hematologic/Lymphatic: Reports: anemia Allergies: Coded Allergies: No Known Allergies (Unverified , 10/10/17) Subjective Pt awake and alert. No acute events. H/H stable. Pt is stable. DC planned for today. Objective Last 24 Hour Vital Signs Date Time Temp Pulse Resp B/P (MAP) Pulse Ox O2 Delivery O2 Flow Rate FiO2 10/15/17 12:00 97.9 83 20 133/92 (106) 97 97.9 10/15/17 09:36 T-piece 10/15/17 08:36 81 125/76 10/15/17 08:36 81 125/76 10/15/17 08:32 84 20 100 Trach Collar 8.0 30 10/15/17 08:21 96 Trach Collar 8.0 30 10/15/17 08:20 Trach Collar 8.0 30 10/15/17 08:13 30 10/15/17 08:12 86 20 96 T-piece 8.0 30 10/15/17 08:00 98.0 81 17 125/76 (92) 96 98.0 10/15/17 04:00 97.9 70 18 123/71 (88) 94 97.9 10/15/17 01:36 86 20 99 Trach Collar 8.0 30 10/15/17 01:33 30 10/15/17 01:31 Trach Collar 8.0 30 10/15/17 01:30 72 20 97 T-piece 8.0 30 10/15/17 01:30 97 Trach Collar 8.0 30 10/15/17 00:00 98.2 73 21 125/69 (87) 96 98.2 10/14/17 21:34 76 132/72 10/14/17 21:00 T-piece 10/14/17 20:11 82 20 99 Trach Collar 8.0 30 10/14/17 20:10 30 10/14/17 20:09 80 20 97 T-piece 8.0 30 10/14/17 20:00 98.6 76 21 132/72 (92) 96 98.6 10/14/17 19:39 78 20 98 T-piece 8.0 30 10/14/17 19:30 Trach Collar 8.0 30 10/14/17 19:30 Trach Collar 8.0 30 10/14/17 19:30 98 Trach Collar 8.0 30 10/14/17 15:40 98.9 72 18 136/82 (100) 95 98.9 10/14/17 15:22 97.7 Intake and Output 10/14/17 10/15/17 19:00 07:00 Intake Total 990.000 ml 990.000 ml Output Total 300 ml Balance 690.000 ml 990.000 ml Free Water 80 ml 200 ml IV Total 250.000 ml 310.000 ml Tube Feeding 660 ml 480 ml Output Urine Total 300 ml Laboratory Tests 10/15/17 06:00: White Blood Count 7.2, Red Blood Count 4.12L, Hemoglobin 11.2L, Hematocrit 34.6L , Mean Corpuscular Volume 84, Mean Corpuscular Hemoglobin 27.2, Mean Corpuscular Hemoglobin Concent 32.5, Red Cell Distribution Width 13.1, Platelet Count 454H, Mean Platelet Volume 4.9L, Neutrophils (%) (Auto) 51.5, Lymphocytes (%) (Auto) 34.8, Monocytes (%) (Auto) 7.5, Eosinophils (%) (Auto) 5.5H, Basophils (%) (Auto) 0.7, Sodium Level 136, Potassium Level 4.4, Chloride Level 102, Carbon Dioxide Level 27, Anion Gap 7, Blood Urea Nitrogen 13, Creatinine 1.0, Estimat Glomerular Filtration Rate > 60, Glucose Level 95, Calcium Level 9.9, Vancomycin Level Trough 18.3H Height (Feet): 5 Height (Inches): 4.00 Weight (Pounds): 142 General Appearance: no apparent distress EENT: PERRL/EOMI Neck: normal alignment Cardiovascular: normal peripheral pulses Respiratory/Chest: normal breath sounds, no respiratory distress Abdomen: soft Evan Muhammad MD Oct 15, 2017 15:09
--- NOTE | 2017-10-18 08:27 | Discharge Summary ---
Discharge Summary Discharge Summary _ DATE OF ADMISSION: 10/10/2017 DATE OF DISCHARGE: 10/15/2017 REASON FOR ADMISSION: 47 years old female with a past medical history significant for hypertension, chronic respiratory failure ,status post tracheostomy, aortic dissection, status post repair in early 2018, dysphagia, status post G-tube, Parkinson disease , was sent from the [facility] for evaluation, for anxiety and concern for methamphetamines withdrawal. Initially upon presentation , patient was very anxious and agitated , but after receiving Ativan, she became more calm and cooperative. Patient complained of pain in the left flank. No chest pain or shortness of breath ,no abdominal pain . Vital signs revealed tachycardia with heart rate 118 and tachypnea with respiratory rate 30. Blood pressure 149/98 Laboratory workup revealed leukocytosis with WBC 13.3, stable hemoglobin and hematocrit. Stable electrolytes and LFT. BUN 21, creatinine 1.5. Lactic acid 1.2. Glucose 83. Urinalysis with evidence of UTI. Urine toxicology screen positive for benzodiazepine ( Ativan given in emergency department). EKG revealed sinus tachycardia, no acute ischemic changes. CT of the head revealed no acute intracranial pathology. Chest x-ray revealed right base atelectasis and elevation of the right hemidiaphragm. Cardiomegaly. CT of the abdomen and pelvis revealed patchy consolidation within the lung , suspicious for pneumonia. 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 Suspected bladder stones. Patient admitted with diagnosis of urinary tract infection, probable aspiration pneumonia, acute kidney injury, chronic respiratory failure with tracheostomy status, feeding by G-tube, acute encephalopathy. CONSULTANTS: pulmonary Dr. Arora ID specialist Dr. Ruiz coal trimmer/oncologist Dr. Muhammad HOSPITAL COURSE: Patient admitted and started on IV fluids and empiric antibiotics. ID consult was closely followed. Blood culture were negative. Urine culture revealed Enterobacter. Sputum culture revealed MRSA. Antibiotic regimen optimized as per ID specialist recommendations. Patient to complete IV antibiotics at the [facility] as recommended by ID specialist. Toe Stapler closely followed. Supplemental oxygen via trach collar titrated to keep pulse oximetry above 92%. Pulmonary toilet provided. Patient was suctioned frequently. Patient was followed up with the chest x-ray. Heart rate and and respiratory rate returned to normal as patient clinically stabilized. Noted drop in hemoglobin and hematocrit. Liaison Inspection Laboratory Assistant followed . Anemia workup was consistent with anemia of chronic disease and also showed low iron. IV Venofer 1 given. Hemoglobin and hematocrit were closely monitored with goal to keep hemoglobin above 7. Hemoglobin prior to discharge 11.2. DVT and GI prophylaxis provided. Blood pressure was managed with current regimen and remained stable . Anti Parkinson medication continued.. Bowel regimen instituted. Supportive care provided. G-tube feeding was continued. Strict aspiration/ reflux precautions were maintained. Patient was able to tolerate tube feeding. Patient clinically stabilized and was ready for discharge back to [facility] for continuation of care FINAL DIAGNOSES: Aspiration pneumonia with MRSA UTI with Enterobacter Acute kidney injury Acute encephalopathy likely secondary to infectious process Chronic respiratory failure with tracheostomy status Feeding by G-tube Parkinson disease Hypertension Anemia of chronic disease History of aortic dissection with repair DISCHARGE MEDICATIONS: See Medication Reconciliation list. DISCHARGE INSTRUCTIONS: Patient was discharged to the [facility]. Follow up with medical doctor at the facility. I have been assigned to dictate discharge summary for this account. I was not involved in the patient's management. Yara Castro NP Oct 18, 2017 08:27
== END 2017-10-15 12:40 | DRG 137 ==
LOC: EDBD 18:11 → EMR 18:41 → EDBEDREQ 21:45 → 2E 22:10 → EDBEDREQ 22:42 → 2E 23:29 → 4W 10-12 16:32 → 4E 10-14 12:25
DX: J69.0 Pneumonitis due to inhalation of food and vomit (principal); G93.40 Encephalopathy, unspecified; J96.11 Chronic respiratory failure with hypoxia; N17.9 Acute kidney failure, unspecified; Z43.0 Encounter for attention to tracheostomy; J15.212 Pneumonia due to Methicillin resistant Staphylococcus aureus; N39.0 Urinary tract infection, site not specified; B96.89 Other specified bacterial agents as the cause of diseases classified elsewhere; Z43.1 Encounter for attention to gastrostomy; I10 Essential (primary) hypertension; D63.8 Anemia in other chronic diseases classified elsewhere; E05.90 Thyrotoxicosis, unspecified without thyrotoxic crisis or storm; F41.9 Anxiety disorder, unspecified; D47.3 Essential (hemorrhagic) thrombocythemia; R13.10 Dysphagia, unspecified; Z95.828 Presence of other vascular implants and grafts; G20 Parkinson's disease
CPT/HCPCS: 36415; 70450; 71045; 72110; 74176; 80048; 80053; 80069; 80202; 80307; 81003; 82164; 82550; 82553; 82728; 83540; 83550; 83605; 83615; 83735; 83880; 84100; 84439; 84443; 84484; 85025; 85044; 85651; 86039; 87040; 87070; 87081; 87086; 87181; 87205; 93005; 94640; 94664; 94760; 99285; J7620

== ENCOUNTER 2018-11-18 18:55 | Inpatient (IN) | payer MEDICAID ==
[~2018-11-18] VITALS: Ht 165.1 cm; Wt 81.2 kg
[~2018-11-18 18:55] MED LIST: ATIVAN1 MG GT; CATAPRES0.1 MG ORAL; CEFTRIAXON1 GM/50 ML IV; DUONEB 0.5-3(2.53 ML HHN; HALOPERIDOL1 MG GT; HYDRALAZINE HCL10 MG GT; LOVENOX10 M4 SUBQ; METOPROLOL TART50 M1 GT; METRONIDAZOLE500 MG ORAL; NORVASC10 MG GT; OMEPRAZOLE20 M2 GT; PERCOCET 10-321 EAC1 PO; PROTONIX40 MG ORAL; ROCEPHIN250 MG IM; ROPINIROLE HCL0.5 MG GT; VITAMIN B-1100 MG GT; ZOFRAN 4 MG4 MG/2 ML IM
[2018-11-18 19:15] VITALS: BP 110/60
[2018-11-18] MEDS ORDERED: Morphine Sulfate 2mg/ml Inj(IV/IM USE ONLY) IVP ONE (19:15)
[2018-11-18 19:54] LABS: BASOPHILS % (AUTO) 0.8 % (0.0-2.0); EOSINOPHILS % (AUTO) 4.3 % (0.0-3.0); HEMATOCRIT 25.8 % (37.0-47.0); HEMOGLOBIN 8.3 G/DL (12.0-16.0); LYMPHOCYTES % (AUTO) 22.3 % (20.0-45.0); MEAN CORPUSCULAR VOLUME 89 FL (80-99); MONOCYTES % (AUTO) 6.8 % (1.0-10.0); NEUTROPHILS % (AUTO) 65.8 % (45.0-75.0); PLATELET COUNT 345 K/UL (150-450); RED BLOOD COUNT 2.89 M/UL (4.20-5.40); RED CELL DISTRIBUTION WIDTH 14.4 % (11.6-14.8); WHITE BLOOD COUNT 12.4 K/UL (4.8-10.8)
[2018-11-18 19:59] LABS: ANION GAP 10 mmol/L (5-15); BLOOD UREA NITROGEN 64 mg/dL (7-18); CALCIUM 9.2 MG/DL (8.5-10.1); CARBON DIOXIDE 26 MMOL/L (21-32); CHLORIDE 98 MMOL/L (98-107); INR 1.1 (0.9-1.1); POTASSIUM 4.8 MMOL/L (3.5-5.1); SODIUM 134 MMOL/L (136-145)
[2018-11-18 20:18] LABS: ALANINE AMINOTRANSFERASE 67 U/L (12-78); ALBUMIN 3.4 G/DL (3.4-5.0); ALBUMIN/GLOBULIN RATIO 0.7 (1.0-2.7); ALKALINE PHOSPHATASE 999 U/L (46-116); ASPARTATE AMINO TRANSFERASE 44 U/L (15-37); BILIRUBIN,TOTAL 0.5 MG/DL (0.2-1.0); CREATINE KINASE 14 U/L (26-308)
--- NOTE | 2018-11-18 21:42 | Emergency Room Report ---
History of Present Illness General Chief Complaint: General Complaint Source: EMS Present Illness HPI Patient had a pacemaker placed recently. There is some pain in her chest in that area. There is also redness over the skin. There is some question of whether she was septic or not. No fever chills and stable vital signs by EMS bringing the patient in. The patient does complain about chest pain. She is unable to characterize the pain or state the number level. Patient is vent dependent. No apparent vomiting. Review of systems is unobtainable as the patient does not communicate. Patient discharged October 15 last year with these discharge diagnoses: Aspiration pneumonia with MRSA UTI with Enterobacter Acute kidney injury Acute encephalopathy likely secondary to infectious process Chronic respiratory failure with tracheostomy status Feeding by G-tube Parkinson disease Hypertension Anemia of chronic disease History of aortic dissection with repair Allergies: Coded Allergies: No Known Allergies (Unverified , 10/10/17) Patient History Limited by: medical condition Past Medical History: see triage record, old chart reviewed Past Surgical History: pacemaker, other - Tracheostomy gastrostomy tube, aortic dissection repair Social History Narrative [facility] facility and vent dependent Reviewed Nursing Documentation: PMH: Agreed; PSxH: Agreed Nursing Documentation-PMH Past Medical History: No History, Except For Hx Cardiac Problems: Yes Hx Hypertension: Yes Hx Cancer: No Hx Gastrointestinal Problems: No Hx Neurological Problems: No Hx Parkinson's Disease: Yes Hx Encephalitis: Yes Hx Dysphasia: Yes Review of Systems All Other Systems: limited Physical Exam Vital Signs Date Time Temp Pulse Resp B/P (MAP) Pulse Ox O2 Delivery O2 Flow Rate FiO2 11/18/18 18:55 98.8 60 18 124/54 (77) 95 Mechanical Ventilator 11/18/18 19:15 40 Sp02 EP Interpretation: reviewed, normal General Appearance: no apparent distress, other - Eyes closed and not answering all questions, Chronically Ill Head: normocephalic Eyes: bilateral eye normal inspection, bilateral eye PERRL ENT: moist mucus membranes Neck: supple, tracheotomy Respiratory: lungs clear, normal breath sounds, other - Pacemaker with some tenderness to palpation no fluctuance Cardiovascular #1: regular rate, rhythm Cardiovascular #2: 2+ radial (L) Gastrointestinal: normal inspection, normal bowel sounds, non tender, non- distended, other - Gastrostomy tube Genitourinary: no CVA tenderness Musculoskeletal: back normal, other - Generalized weakness Neurologic: responsive, sensory intact, motor weakness - Generalized weakness Psychiatric: depressed affect Skin: warm/dry, other - Minimal erythema left chest pacemaker Medical Decision Making Diagnostic Impression: Primary Impression: Chest pain Qualified Codes: R07.9 - Chest pain, unspecified Additional Impressions: Anemia Qualified Codes: D64.9 - Anemia, unspecified Ventilator dependence Elevated brain natriuretic peptide (BNP) level Acute renal failure Qualified Codes: N17.9 - Acute kidney failure, unspecified Encephalopathy ER Course EKG atrial sensing paced. Patient presents with left-sided chest pain at pacemaker site and possible infection. Differential includes sepsis, pacemaker infection, viral syndrome, pneumonia, acute myocardial infarction amongst others. Very complex patient as she is unable to provide history and has comorbidities. Evaluation with EKG, chest x-ray and labs. Patient treated with IV hydration and analgesia. EKG atrial sensing paced. Chest x-ray no infiltrates. Labs with elevated white count. Anemia worsened from before. No indication for transfusion. CMP with elevated BUN and creatinine. BNP elevated. Initial lactic acid normal. Troponin negative Patient with filomena IV hydration. Morphine administered for pain. Improved with this. Dr. Dong consulted and believes pacemaker is infected. He requested antibiotics be started. Vancomycin and Zosyn ordered. Patient admitted to stepdown unit for observation and evaluation by private doctor and infectious diseases. Laboratory Tests Test 11/18/18 19:20 11/18/18 21:40 White Blood Count 12.4 K/UL (4.8-10.8) H Red Blood Count 2.89 M/UL (4.20-5.40) L Hemoglobin 8.3 G/DL (12.0-16.0) L Hematocrit 25.8 % (37.0-47.0) L Mean Corpuscular Volume 89 FL (80-99) Mean Corpuscular Hemoglobin 28.7 PG (27.0-31.0) Mean Corpuscular Hemoglobin Concent 32.1 G/DL (32.0-36.0) Red Cell Distribution Width 14.4 % (11.6-14.8) Platelet Count 345 K/UL (150-450) Mean Platelet Volume 5.1 FL (6.5-10.1) L Neutrophils (%) (Auto) 65.8 % (45.0-75.0) Lymphocytes (%) (Auto) 22.3 % (20.0-45.0) Monocytes (%) (Auto) 6.8 % (1.0-10.0) Eosinophils (%) (Auto) 4.3 % (0.0-3.0) H Basophils (%) (Auto) 0.8 % (0.0-2.0) Erythrocyte Sedimentation Rate 81 MM/HR (0-20) H Prothrombin Time 11.4 SEC (9.30-11.50) Prothrombin Time INR 1.1 (0.9-1.1) PTT 31 SEC (23-33) Sodium Level 134 MMOL/L (136-145) L Potassium Level 4.8 MMOL/L (3.5-5.1) Chloride Level 98 MMOL/L (98-107) Carbon Dioxide Level 26 MMOL/L (21-32) Anion Gap 10 mmol/L (5-15) Blood Urea Nitrogen 64 mg/dL (7-18) H Creatinine 2.0 MG/DL (0.55-1.30) H Estimate Glomerular Filtration Rate 26.8 mL/min (>60) Glucose Level 84 MG/DL (74-106) Lactic Acid Level 0.50 mmol/L (0.4-2.0) Calcium Level 9.2 MG/DL (8.5-10.1) Total Bilirubin 0.5 MG/DL (0.2-1.0) Aspartate Amino Transferase (AST) 44 U/L (15-37) H Alanine Aminotransferase (ALT) 67 U/L (12-78) Alkaline Phosphatase 999 U/L (46-116) H Total Creatine Kinase 14 U/L (26-308) L Troponin I 0.000 ng/mL (0.000-0.056) Pro-B-Type Natriuretic Peptide 75805 pg/mL (0-125) H Total Protein 8.2 G/DL (6.4-8.2) Albumin 3.4 G/DL (3.4-5.0) Globulin 4.8 g/dL Albumin/Globulin Ratio 0.7 (1.0-2.7) L Lipase 86 U/L (73-393) Urine Color Pale yellow Urine Appearance Clear Urine pH 6 (4.5-8.0) Urine Specific [place] 1.010 (1.005-1.035) Urine Protein Negative (NEGATIVE) Urine Glucose (UA) Negative (NEGATIVE) Urine Ketones Negative (NEGATIVE) Urine Blood Negative (NEGATIVE) Urine Nitrite Negative (NEGATIVE) Urine Bilirubin Negative (NEGATIVE) Urine Urobilinogen Normal MG/DL (0.0-1.0) Urine Leukocyte Esterase 1+ (NEGATIVE) H Urine RBC 0-2 /HPF (0 - 2) Urine WBC 5-10 /HPF (0 - 2) H Urine Squamous Epithelial Cells Occasional /LPF Urine Bacteria Few /HPF (NONE) EKG Diagnostic Results Rate: other - Atrial sensed paced Rhythm: other - Paced ST Segments: no acute changes Rhythm Strip Diag. Results EP Interpretation: yes Rhythm: NSR, no PVC's, no ectopy, other - Atrial sensing pacemaker rate 62 Chest X-Ray Diagnostic Results Chest X-Ray Diagnostic Results : Chest X-Ray Ordered: Yes # of Views/Limited/Complete: 1 View Indication: Other EP Interpretation: Yes Interpretation: no consolidation, no effusion, no pneumothorax, other - Pacemaker left, tracheostomy Impression: Other Electronically Signed by: Electronically signed by Deni Correa MD Last Vital Signs Date Time Temp Pulse Resp B/P (MAP) Pulse Ox O2 Delivery O2 Flow Rate FiO2 11/19/18 01:21 60 25 40 11/19/18 01:00 109/60 11/19/18 00:31 Mechanical Ventilator 11/18/18 22:15 98.8 100 Status: improved Disposition: ADMITTED INPATIENT Condition: Serious Referrals: Lucas Dong MD (PCP) Deni Correa MD Nov 18, 2018 21:42
[2018-11-18 21:59] LABS: APPEARANCE,URINE CLEAR; BILIRUBIN, URINE NEGATIVE (NEGATIVE); COLOR,URINE PALE YELLOW; GLUCOSE, URINE (UA) NEGATIVE (NEGATIVE); KETONES,URINE NEGATIVE (NEGATIVE); LEUKOCYTE ESTERASE ,URINE 1+ (NEGATIVE); NITRITE,URINE NEGATIVE (NEGATIVE); PH,URINE 6 (4.5-8.0); PROTEIN,URINE NEGATIVE (NEGATIVE); UROBILINOGEN,URINE NORMAL MG/DL (0.0-1.0)
[2018-11-18] MEDS ORDERED: Vancomycin 1 GM in NS 275 ML IVPB ONE (22:00)
[2018-11-18] MEDS ORDERED: Piperacillin/Tazobactam 3.375 GM in NS 110 ML IVPB ONE (22:00)
[2018-11-18 22:15] VITALS: BP 115/65
[2018-11-19] MEDS: HydrALAZINE 10mg Tab GT SCH ×6 (01:00→20:21)
[2018-11-19 04:00] VITALS: BP 117/58
[2018-11-19 05:08] LABS: BASOPHILS % (AUTO) 0.7 % (0.0-2.0); EOSINOPHILS % (AUTO) 3.5 % (0.0-3.0); HEMATOCRIT 26.5 % (37.0-47.0); HEMOGLOBIN 8.5 G/DL (12.0-16.0); LYMPHOCYTES % (AUTO) 15.3 % (20.0-45.0); MEAN CORPUSCULAR VOLUME 89 FL (80-99); MONOCYTES % (AUTO) 6.8 % (1.0-10.0); NEUTROPHILS % (AUTO) 73.7 % (45.0-75.0); PLATELET COUNT 352 K/UL (150-450); RED BLOOD COUNT 2.98 M/UL (4.20-5.40); RED CELL DISTRIBUTION WIDTH 15.5 % (11.6-14.8); WHITE BLOOD COUNT 13.5 K/UL (4.8-10.8)
[2018-11-19 05:55] LABS: ANION GAP 10 mmol/L (5-15); BLOOD UREA NITROGEN 58 mg/dL (7-18); CALCIUM 8.6 MG/DL (8.5-10.1); CARBON DIOXIDE 23 MMOL/L (21-32); CHLORIDE 100 MMOL/L (98-107); CHOLESTEROL 119 MG/DL (< 200); CREATININE 1.9 MG/DL (0.55-1.30); HDL CHOLESTEROL 45 MG/DL (40-60); POTASSIUM 4.8 MMOL/L (3.5-5.1); SODIUM 133 MMOL/L (136-145); TRIGLYCERIDES 62 MG/DL (30-150)
[2018-11-19] MEDS: Haloperidol 1mg tab GT SCH ×3 (06:18→21:21)
[2018-11-19] MEDS: Piperacillin/Tazobactam 3.375 GM in NS 110 ML IVPB SCH ×3 (06:19→22:50)
[2018-11-19] MEDS: Albuterol/Ipratropium 3ml neb HHN SCH ×3 (06:39→19:00)
[2018-11-19 08:00] VITALS: BP 120/63
[2018-11-19] MEDS: Heparin 5000 units/ml inj SUBQ SCH ×2 (09:51→20:23)
[2018-11-19] MEDS: Thiamine 100mg tab GT SCH (09:52)
[2018-11-19] MEDS: Metoprolol Tartrate 50mg tab GT SCH ×2 (09:52→20:21)
--- NOTE | 2018-11-19 10:30 | History and Physical Report ---
DATE OF ADMISSION: 11/18/2018 REASON FOR ADMISSION: This is the first admission to [facility] of this 48-year-old lady because of suspected infection of the pacemaker pocket. HISTORY OF PRESENT ILLNESS: The patient is a resident of an extended care facility subacute unit. The patient has been in stable condition over the last two weeks. She is known to have several chronic medical syndrome, but has been stable on the current medication. On the day of admission, she developed chest pain that could be localized to the pacemaker pocket. The pacemaker warm, tender with redness on . She was transferred to [facility] ER and was admitted. PAST MEDICAL HISTORY: She denied except tracheostomy more than one month ago and pacemaker insertion around the same time. Medically, she is known to have high blood pressure, respiratory failure, ventilator-dependent tracheostomy, and fed via gastrostomy tube. MEDICATIONS: The patient currently is on Zosyn 3.375 g IV piggyback every six hours and vancomycin 1 g IV piggyback q.12 h. ALLERGIES: No known drug allergies. FAMILY HISTORY: Noncontributory. SOCIAL HISTORY: She is single. She was born [place] for few weeks prior to . 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 HABITS: The patient does not smoke, drink, or use illicit drugs. REVIEW OF SYSTEMS: The patient is not able to give any information regarding her state of health. PHYSICAL EXAMINATION: VITAL SIGNS: Blood pressure is 158/65, pulse 60, respirations 18, and temperature 98.8. HEENT: Eyes were normal. Pupils were round, equal, and reactive to light. Sclerae were white. Conjunctivae were pink. Extraocular movements were normal. Temporal arteries were palpable bilaterally. There was no bilateral temporal wasting. Visual cervantes to confrontation were normal. Neglect sign was negative. ENT, mucous membranes were not dehydrated. Auditory canals were clear and tympanic membranes could not be visualized. Nasal cavity was not congested. Nasal septum was intact. Soft palate was free of ulcerations. Pharynx was clear from exudate or tonsillar hypertrophy. Uvula mohit to phonation. Tongue was moist, midline, and normally papillated. NECK: Supple. There was no goiter. No mass. No lymphadenopathy. There was no JVD. No bruits. Carotid upstroke was 2+. LUNGS: Clear. HEART: PMI was in fifth left intercostal space in midclavicular line. There was normal S1 and normal S2. There was no murmur. No arrhythmia. No S3. No S4. No pericardial rub. ABDOMEN: Soft, nontender without organomegaly. There were no masses palpable. Normal bowel sounds without bruits. There was no guarding. No rebound tenderness. No ascites. No hernia. No CVA tenderness. Liver span was 8 cm, mostly nontender. EXTREMITIES: No cyanosis, clubbing, and no edema. Extremities were warm. NEUROLOGICAL: Reflexes in biceps, triceps, and brachioradialis were present. Patellar retinaculum was present. Plantars were declined. Cranial nerves from II through XII were symmetric and equal. LABORATORY AND DIAGNOSTIC DATA: Hemoglobin is 8.3, hematocrit 25.8 with MCV of 89, WBC of 12.4, and platelets 345. Her BUN and creatinine are 64 and 2.0 respectively. Her sodium is 134, potassium 4.8, chloride 98, CO2 26. Her calcium is 9.2. SGOT was 44, SGPT was 67, and alkaline phosphatase . ProBNP was 18,663. Albumin is 3.4, total protein . Chest x-ray was done in the emergency room, which revealed evidence of injury . IMPRESSION: The patient has low-grade fever as well as Cardiology and Pulmonology. Repeat laboratory tests will be done in the a.m. Lucas Dong M.D. DR: DAPHNE JOB#: [id number] CC:
[2018-11-19 12:00] VITALS: BP 124/61
--- NOTE | 2018-11-19 12:19 | Consultation ---
History of Present Illness General Date patient seen: Nov 19, 2018 Chief Complaint: General Complaint Present Illness HPI 48 y/o F with hx of HTN, anxiety, chronic rep failure s/p tach, s/p PEG, aortic dissection s/p repair 2017, s/p PPM, [place] resident presented to ED on 11/18 with pain and redness in area of recently placed PPM. No fever/chills. Of note, patient was admitted here from 10/10-10/14 for aspiration pneumonia (Sp cx MRSA) and probable UTI Allergies: Coded Allergies: No Known Allergies (Unverified , 10/10/17) Medication History Scheduled Amlodipine Besylate (Norvasc), 10 MG GT DAILY, (Reported) Ceftriaxone Na/Dextrose,Iso (Ceftriaxone 1 Gm Piggyback), 1 GM IV Q24HR, ( Reported) Ceftriaxone Na/Dextrose,Iso (Ceftriaxone 1 Gm Piggyback), 1 GM IV Q24H, ( Reported) Enoxaparin* (Lovenox*), 40 MG SUBQ DAILY, (Reported) Haloperidol* (Haldol*), 1 MG GT EVERY 8 HOURS, (Reported) Hydralazine Hcl* (Hydralazine Hcl*), 10 MG GT EVERY 4 HOURS, (Reported) Ipratropium/Albuterol Sulfate (DuoNeb 0.5-3(2.5)mg/3ml), 3 ML HHN EVERY 6 HOURS, (Reported) Lorazepam* (Ativan*), 1 MG GT Q12HR, (Reported) Metoprolol Tartrate* (Metoprolol Tartrate*), 50 MG GT EVERY 12 HOURS, (Reported) Metronidazole* (Flagyl*), 500 MG ORAL EVERY 8 HOURS, (Reported) Omeprazole (Omeprazole), 20 MG GT DAILY, (Reported) Pantoprazole* (Protonix*), 20 MG ORAL DAILY, (Reported) Ropinirole Hcl* (Ropinirole Hcl*), 0.5 MG GT BEDTIME, (Reported) Thiamine Hcl* (Vitamin B-1*), 100 MG GT DAILY, (Reported) Scheduled PRN Clonidine Hcl* (Catapres*), 0.1 MG ORAL EVERY 4 HOURS PRN for For High Blood Pressure, (Reported) Ondansetron* (Zofran*), 4 MG IM Q8HR PRN for Nausea & Vomiting, (Reported) Oxycodone HCl/Acetaminophen (Percocet 10-325 mg Tablet), 1 EACH PO Q4HR PRN for PRN, (Reported) Miscellaneous Medications Ceftriaxone Sod (Rocephin), 1 MG IM, (Reported) Patient History Healthcare decision maker Resuscitation status Full Code Advanced Directive on File No Patient History Narrative Pmhx: as above Shx: The patient does not smoke, drink, or use illicit drugs. Fhx non contributory Review of Systems All Other Systems: negative except mentioned in HPI Physical Exam Physical Exam Narrative HEENT: Eyes were normal. Pupils were round, equal, and reactive to light. Sclerae were white. Conjunctivae were pink. ENT, mucous membranes were not dehydrated. NECK: Supple. No lymphadenopathy. LUNGS: Clear. HEART: PMI was in fifth left intercostal space in midclavicular line. There was normal S1 and normal S2. There was no murmur. No arrhythmia. No S3. No S4. No pericardial rub. ABDOMEN: Soft, nontender without organomegaly. There were no masses palpable. Normal bowel sounds without bruits. There was no guarding. No rebound tenderness. No CVA tenderness. EXTREMITIES: No cyanosis, clubbing, and no edema. Extremities were warm. Last 24 Hour Vital Signs Date Time Temp Pulse Resp B/P (MAP) Pulse Ox O2 Delivery O2 Flow Rate FiO2 11/19/18 11:08 97.9 11/19/18 11:05 68 18 40 11/19/18 09:52 62 120/63 11/19/18 09:52 120/63 11/19/18 09:52 62 120/63 11/19/18 09:17 62 18 40 11/19/18 08:00 60 11/19/18 08:00 Mechanical Ventilator 11/19/18 08:00 97.9 65 22 120/63 (82) 98 11/19/18 06:41 60 16 100 Mechanical Ventilator 45.0 40 60 16 40 11/19/18 05:00 60 24 40 11/19/18 04:48 117/58 11/19/18 04:00 40 11/19/18 04:00 61 11/19/18 04:00 97.9 62 21 117/58 (77) 98 11/19/18 04:00 Mechanical Ventilator 11/19/18 02:48 62 27 40 11/19/18 01:21 60 25 40 11/19/18 01:00 109/60 11/19/18 00:31 Mechanical Ventilator 11/18/18 23:14 60 11/18/18 23:00 40 11/18/18 22:50 60 25 40 11/18/18 22:50 98.4 60 18 116/60 100 Mechanical Ventilator 40 11/18/18 22:15 98.8 60 18 115/65 100 Mechanical Ventilator 40 11/18/18 20:50 60 22 40 11/18/18 20:16 98.8 11/18/18 19:25 60 31 98 Mechanical Ventilator 40 11/18/18 19:20 60 31 40 11/18/18 19:15 98.8 60 18 110/60 95 Mechanical Ventilator 40 11/18/18 19:15 60 18 Mechanical Ventilator 40 11/18/18 18:55 98.8 60 18 124/54 (77) 95 Mechanical Ventilator Intake and Output 11/18/18 11/19/18 19:00 07:00 Intake Total 20 ml Balance 20 ml Intake Tube Feeding 20 ml # Voids 1 Laboratory Tests Test 11/18/18 19:20 11/18/18 21:40 11/19/18 03:10 White Blood Count 12.4 K/UL (4.8-10.8) H 13.5 K/UL (4.8-10.8) H Red Blood Count 2.89 M/UL (4.20-5.40) L 2.98 M/UL (4.20-5.40) L Hemoglobin 8.3 G/DL (12.0-16.0) L 8.5 G/DL (12.0-16.0) L Hematocrit 25.8 % (37.0-47.0) L 26.5 % (37.0-47.0) L Mean Corpuscular Volume 89 FL (80-99) 89 FL (80-99) Mean Corpuscular Hemoglobin 28.7 PG (27.0-31.0) 28.6 PG (27.0-31.0) Mean Corpuscular Hemoglobin Concent 32.1 G/DL (32.0-36.0) 32.2 G/DL (32.0-36.0) Red Cell Distribution Width 14.4 % (11.6-14.8) 15.5 % (11.6-14.8) H Platelet Count 345 K/UL (150-450) 352 K/UL (150-450) Mean Platelet Volume 5.1 FL (6.5-10.1) L 5.1 FL (6.5-10.1) L Neutrophils (%) (Auto) 65.8 % (45.0-75.0) 73.7 % (45.0-75.0) Lymphocytes (%) (Auto) 22.3 % (20.0-45.0) 15.3 % (20.0-45.0) L Monocytes (%) (Auto) 6.8 % (1.0-10.0) 6.8 % (1.0-10.0) Eosinophils (%) (Auto) 4.3 % (0.0-3.0) H 3.5 % (0.0-3.0) H Basophils (%) (Auto) 0.8 % (0.0-2.0) 0.7 % (0.0-2.0) Erythrocyte Sedimentation Rate 81 MM/HR (0-20) H 70 MM/HR (0-20) H Prothrombin Time 11.4 SEC (9.30-11.50) Prothromb Time International Ratio 1.1 (0.9-1.1) Activated Partial Thromboplast Time 31 SEC (23-33) Sodium Level 134 MMOL/L (136-145) L 133 MMOL/L (136-145) L Potassium Level 4.8 MMOL/L (3.5-5.1) 4.8 MMOL/L (3.5-5.1) Chloride Level 98 MMOL/L (98-107) 100 MMOL/L (98-107) Carbon Dioxide Level 26 MMOL/L (21-32) 23 MMOL/L (21-32) Anion Gap 10 mmol/L (5-15) 10 mmol/L (5-15) Blood Urea Nitrogen 64 mg/dL (7-18) H 58 mg/dL (7-18) H Creatinine 2.0 MG/DL (0.55-1.30) H 1.9 MG/DL (0.55-1.30) H Estimat Glomerular Filtration Rate 26.8 mL/min (>60) 28.5 mL/min (>60) Glucose Level 84 MG/DL (74-106) 102 MG/DL (74-106) Lactic Acid Level 0.50 mmol/L (0.4-2.0) Calcium Level 9.2 MG/DL (8.5-10.1) 8.6 MG/DL (8.5-10.1) Total Bilirubin 0.5 MG/DL (0.2-1.0) Aspartate Amino Transf (AST/SGOT) 44 U/L (15-37) H Alanine Aminotransferase (ALT/SGPT) 67 U/L (12-78) Alkaline Phosphatase 999 U/L (46-116) H Total Creatine Kinase 14 U/L (26-308) L Troponin I 0.000 ng/mL (0.000-0.056) Pro-B-Type Natriuretic Peptide 08880 pg/mL (0-125) H Total Protein 8.2 G/DL (6.4-8.2) Albumin 3.4 G/DL (3.4-5.0) Globulin 4.8 g/dL Albumin/Globulin Ratio 0.7 (1.0-2.7) L Lipase 86 U/L (73-393) Urine Color Pale yellow Urine Appearance Clear Urine pH 6 (4.5-8.0) Urine Specific [place] 1.010 (1.005-1.035) Urine Protein Negative (NEGATIVE) Urine Glucose (UA) Negative (NEGATIVE) Urine Ketones Negative (NEGATIVE) Urine Blood Negative (NEGATIVE) Urine Nitrite Negative (NEGATIVE) Urine Bilirubin Negative (NEGATIVE) Urine Urobilinogen Normal MG/DL (0.0-1.0) Urine Leukocyte Esterase 1+ (NEGATIVE) H Urine RBC 0-2 /HPF (0 - 2) Urine WBC 5-10 /HPF (0 - 2) H Urine Squamous Epithelial Cells Occasional /LPF Urine Bacteria Few /HPF (NONE) Hemoglobin A1c 4.9 % (4.3-6.0) Triglycerides Level 62 MG/DL (30-150) Cholesterol Level 119 MG/DL (< 200) LDL Cholesterol 67 mg/dL (<100) HDL Cholesterol 45 MG/DL (40-60) Cholesterol/HDL Ratio 2.6 (3.3-4.4) L Thyroid Stimulating Hormone (TSH) 1.353 uiU/mL (0.358-3.740) Free Thyroxine 1.54 NG/DL (0.76-1.46) H Microbiology Date/Time Source Procedure Growth Status 11/18/18 21:40 Rectum Received Height (Feet): 5 Height (Inches): 5.00 Weight (Pounds): 165 Medications Current Medications Medications (Trade) Dose Ordered Sig/Penny Route PRN Reason Start Time Stop Time Status Last Admin Dose Admin Acetaminophen (Tylenol) 650 mg Q4H PRN ORAL Mild Pain/Temp > 100.5 11/19/18 04:15 12/19/18 04:14 Albuterol/ Ipratropium (Albuterol/ Ipratropium) 3 ml Q6HRT HHN 11/19/18 07:00 11/24/18 06:59 11/19/18 06:39 Amlodipine Besylate (Norvasc) 10 mg DAILY GT 11/19/18 09:00 12/19/18 08:59 11/19/18 09:52 Haloperidol (Haldol) 1 mg EVERY 8 HOURS GT 11/19/18 06:00 12/19/18 05:59 11/19/18 06:18 Heparin Sodium (Porcine) (Heparin 5000 units/ml) 5,000 units EVERY 12 HOURS SUBQ 11/19/18 09:00 12/19/18 08:59 11/19/18 09:51 Hydralazine HCl (Apresoline) 10 mg EVERY 4 HOURS GT 11/19/18 01:00 12/19/18 00:59 11/19/18 09:52 Lansoprazole (Prevacid) 30 mg DAILY GT 11/19/18 09:00 12/19/18 08:59 11/19/18 09:51 Metoprolol Tartrate (Lopressor) 50 mg EVERY 12 HOURS GT 11/19/18 09:00 12/19/18 08:59 11/19/18 09:52 Ondansetron HCl (Zofran) 4 mg Q8H PRN IM Nausea & Vomiting 11/19/18 01:00 12/19/18 00:59 Oxycodone/ Acetaminophen (Percocet 10/325) 1 tab Q4H PRN GT PRN 11/19/18 01:00 11/26/18 00:59 11/19/18 10:38 Piperacillin Sod/ Tazobactam Sod 3.375 gm/Sodium Chloride 110 ml @ 27.5 mls/hr EVERY 8 HOURS IVPB 11/19/18 06:00 11/24/18 05:59 11/19/18 06:19 Thiamine HCl (Vitamin B1) 100 mg DAILY GT 11/19/18 09:00 12/19/18 08:59 11/19/18 09:52 Vancomycin HCl 1 gm/Dextrose 275 ml @ 183.708 mls/hr Q24H IVPB 11/19/18 22:00 11/24/18 21:59 Assessment/Plan Assessment/Plan: Abx: IV Vancomycin 11/18- ZOsyn 11/18- Assessment: Afebrile Mild leukocytosis -CXR p -u.a wbc 5-10, nit neg, leuk +1 PPM site redness and pain- r/o probable PPM infection- r/o endocarditis -Bcx p Recent aspiration PNA and UTI (late September 2018) -u/a wbc 5-10, nit +, leuk +1; ucx >100k Enterobacter aerogenes (R ancef, nitro; otherwise S) -sp cx MRSA HTN anxiety chronic resp failure s/p trach s/p PEG aortic dissection s/p repair early 2017 [place] resident Plan: -Continue empiric IV Vancomycin and Zosyn #2 pending cultuser -f.u cx -Monitor CBC/CMP, temperatures -2d Echo- may need ABBIE Thank you for this consultation. Will continue to follow along with you. Doreen Nino M.D. Nov 19, 2018 12:19
--- NOTE | 2018-11-19 14:47 | Diagnostic Imaging Report ---
Indication: Chest pain Technique: One view of the chest Comparison: 10/13/2017 Findings: There are atelectatic changes at the right lung base. There is retrocardiac consolidation. The heart is enlarged. There is a left chest bifocal pacemaker, not evident previously. Tracheostomy and median sternotomy sutures are unchanged Impression: Retrocardiac consolidation, possibly pneumonia Right basilar atelectasis
[2018-11-19 16:00] VITALS: BP 131/60
[2018-11-19 20:00] VITALS: BP 154/76
[2018-11-19] MEDS: Vancomycin 1 GM in D5W 275 ML IVPB SCH (21:19)
[2018-11-20] VITALS: BP 123/57
[2018-11-20] MEDS: HydrALAZINE 10mg Tab GT SCH ×6 (00:23→20:17)
[2018-11-20] MEDS: Albuterol/Ipratropium 3ml neb HHN SCH ×5 (00:37→19:08)
[2018-11-20 04:00] VITALS: BP 147/73
[2018-11-20] MEDS: Haloperidol 1mg tab GT SCH ×3 (05:19→21:01)
[2018-11-20] MEDS: Piperacillin/Tazobactam 3.375 GM in NS 110 ML IVPB SCH ×3 (05:19→22:23)
[2018-11-20 08:00] VITALS: BP 142/80
[2018-11-20] MEDS: Thiamine 100mg tab GT SCH (09:03)
[2018-11-20] MEDS: Heparin 5000 units/ml inj SUBQ SCH ×2 (09:07→20:17)
[2018-11-20] MEDS: Metoprolol Tartrate 50mg tab GT SCH ×2 (09:08→21:26)
--- NOTE | 2018-11-20 10:15 | Progress Note ---
DATE: 11/19/2018 SUBJECTIVE: The patient is awake, alert, afebrile, and hemodynamically stable. She is restless and entirely agitated than yesterday. PHYSICAL EXAMINATION: VITAL SIGNS: Blood pressure 147/79, her pulse is 70, respirations are 20, . Lucas Dong M.D. DR: MARIAM JOB#: [id number] CC:
--- NOTE | 2018-11-20 10:45 | Progress Note ---
DATE: 11/19/2018 SUBJECTIVE: The patient is afebrile and hemodynamically stable. Her pacemaker pocket . PHYSICAL EXAMINATION: VITAL SIGNS: Blood pressure is 149/79, pulse is 63, respirations are 20, and temperature is 98.1. HEENT: Eyes were normal. ENT, mucous membranes were moist and intact. NECK: Supple with no JVD and without lymph nodes. Tracheostomy site is clean. LUNGS: Clear without rhonchi, rales, or wheezing. Secretions are small, thin, and massey. HEART: The patient with pacemaker removed. The skin is substantially less red and less angry. EXTREMITIES: Warm without cyanosis, clubbing, or edema. LABORATORY DATA: Her hemoglobin is 8.5, hematocrit 26.5 89, WBC of 13.5, and platelets 352,000. The BUN and creatinine is 15 and 1.9 respectively. It was 64 and 2 yesterday. Her sodium is 133, potassium 4.8, chloride 100, and CO2 is 23. Her cholesterol is 119 and LDL cholesterol is . IMPRESSION: Repeat laboratory tests will be done in the a.m. Lucas Dong M.D. DR: MARIAM JOB#: [id number] CC:
--- NOTE | 2018-11-20 11:50 | Pulmonolgy Critical Care Note ---
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, 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 - Objective Last 24 Hour Vital Signs Date Time Temp Pulse Resp B/P (MAP) Pulse Ox O2 Delivery O2 Flow Rate FiO2 11/20/18 11:17 63 21 40 11/20/18 09:20 73 25 40 11/20/18 09:08 70 142/80 11/20/18 09:08 70 142/80 11/20/18 09:07 142/80 11/20/18 08:02 60 11/20/18 08:00 Mechanical Ventilator 11/20/18 08:00 99.3 61 20 142/80 (100) 95 11/20/18 08:00 40 11/20/18 07:08 60 27 40 11/20/18 05:27 65 20 40 11/20/18 04:24 151/76 11/20/18 04:00 98.4 61 20 147/73 (97) 94 11/20/18 04:00 40 11/20/18 04:00 Mechanical Ventilator 11/20/18 04:00 60 11/20/18 02:54 62 16 40 11/20/18 00:37 60 16 98 Mechanical Ventilator 40 60 18 40 11/20/18 00:23 131/59 11/20/18 00:00 60 11/20/18 00:00 40 11/20/18 00:00 98.7 60 20 123/57 (79) 100 11/20/18 00:00 Mechanical Ventilator 11/19/18 22:46 60 18 40 11/19/18 21:14 60 20 40 11/19/18 20:21 63 149/79 11/19/18 20:21 149/79 11/19/18 20:00 99.4 63 22 154/76 (102) 97 11/19/18 20:00 40 11/19/18 20:00 63 11/19/18 20:00 Mechanical Ventilator 11/19/18 19:08 61 23 97 Mechanical Ventilator 40 61 23 40 11/19/18 17:31 131/60 11/19/18 17:16 60 20 40 11/19/18 16:00 62 11/19/18 16:00 Mechanical Ventilator 11/19/18 16:00 40 11/19/18 16:00 97.5 60 20 131/60 (83) 94 11/19/18 15:15 64 16 40 11/19/18 15:10 98.1 11/19/18 14:06 120/63 11/19/18 13:29 60 14 100 Mechanical Ventilator 45.0 40 60 14 40 11/19/18 12:00 98.1 60 22 124/61 (82) 93 11/19/18 12:00 60 11/19/18 12:00 40 11/19/18 12:00 Mechanical Ventilator Status: awake Condition: critical Neck: full ROM Lungs: chest wall tender Heart: HR/BP unstable Abdomen: soft, active bowel sounds Extremities: no C/C/E Micro: Microbiology Date/Time Source Procedure Growth Status 11/18/18 22:05 Blood Blood Culture - Preliminary Resulted 11/18/18 21:50 Blood Blood Culture - Preliminary Resulted 11/18/18 21:40 Rectum Received Accucheck: 218 Critical Care - Subjective ROS Limited/Unobtainable: Yes EKG Rhythm: Sinus Rhythm FI02: 40 Vent Support Breath Rate: 10 Vent Support Mode: AC Vent Tidal Volume: 400 Sputum Amount: Small PEEP: 5.0 PIP: 14 Tube Feeding Amount: 40 I&O: Intake and Output 11/19/18 11/20/18 19:00 07:00 Intake Total 522.5 ml 1092.500 ml Balance 522.5 ml 1092.500 ml Intake Free Water 150 ml 200 ml IV Total 82.5 ml 412.500 ml Tube Feeding 290 ml 480 ml # Voids 4 CXR: pacemaker Ranjith Arora MD Nov 20, 2018 11:50
[2018-11-20 12:00] VITALS: BP 151/74
--- NOTE | 2018-11-20 13:02 | Infectious Diseases Prog Note ---
Assessment/Plan Assessment/Plan \ Assessment: Afebrile Mild leukocytosis -CXR p -u.a wbc 5-10, nit neg, leuk +1 PPM site infection (redness and pain, bacteremia)- r/o endocarditis/PPM lead vegetation) -2d echo: no vegetation seen Gram positive bacteremia -Bcx 3/4 GPC clusters Probable PNA -CXR: etrocardiac consolidation, possibly pneumonia. Right basilar atelectasis Recent aspiration PNA and UTI (late September 2018) -u/a wbc 5-10, nit +, leuk +1; ucx >100k Enterobacter aerogenes (R ancef, nitro; otherwise S) -sp cx MRSA HTN anxiety chronic resp failure s/p trach s/p PEG aortic dissection s/p repair early 2017 [place] resident Plan: -Continue empiric IV Vancomycin #3 pending ID and sensi GPC blood culture -Continue empiric Zosyn #3 pending sp culture -f.u cx -Monitor CBC/CMP, temperatures -will need ABBIE to eval for endocarditis and/or PPM lead vegetation -Cards eval- may need PPM extraction -Bcx x2, sp cx -CRP am Thank you for this consultation. Will continue to follow along with you. Subjective Allergies: Coded Allergies: No Known Allergies (Unverified , 10/10/17) Objective Vital Signs Last 24 Hour Vital Signs Date Time Temp Pulse Resp B/P (MAP) Pulse Ox O2 Delivery O2 Flow Rate FiO2 11/20/18 12:30 151/74 11/20/18 12:00 Mechanical Ventilator 11/20/18 12:00 40 11/20/18 12:00 99.3 64 22 151/74 (99) 95 11/20/18 11:17 63 21 40 11/20/18 09:20 73 25 40 11/20/18 09:08 70 142/80 11/20/18 09:08 70 142/80 11/20/18 09:07 142/80 11/20/18 08:02 60 11/20/18 08:00 Mechanical Ventilator 11/20/18 08:00 99.3 61 20 142/80 (100) 95 11/20/18 08:00 40 11/20/18 07:08 60 27 40 11/20/18 05:27 65 20 40 11/20/18 04:24 151/76 11/20/18 04:00 98.4 61 20 147/73 (97) 94 11/20/18 04:00 40 11/20/18 04:00 Mechanical Ventilator 11/20/18 04:00 60 11/20/18 02:54 62 16 40 11/20/18 00:37 60 16 98 Mechanical Ventilator 40 60 18 40 11/20/18 00:23 131/59 11/20/18 00:00 60 11/20/18 00:00 40 11/20/18 00:00 98.7 60 20 123/57 (79) 100 11/20/18 00:00 Mechanical Ventilator 11/19/18 22:46 60 18 40 11/19/18 21:14 60 20 40 11/19/18 20:21 63 149/79 11/19/18 20:21 149/79 11/19/18 20:00 99.4 63 22 154/76 (102) 97 11/19/18 20:00 40 11/19/18 20:00 63 11/19/18 20:00 Mechanical Ventilator 11/19/18 19:08 61 23 97 Mechanical Ventilator 40 61 23 40 11/19/18 17:31 131/60 11/19/18 17:16 60 20 40 11/19/18 16:00 62 11/19/18 16:00 Mechanical Ventilator 11/19/18 16:00 40 11/19/18 16:00 97.5 60 20 131/60 (83) 94 11/19/18 15:15 64 16 40 11/19/18 15:10 98.1 11/19/18 14:06 120/63 11/19/18 13:29 60 14 100 Mechanical Ventilator 45.0 40 60 14 40 Height (Feet): 5 Height (Inches): 5.00 Weight (Pounds): 165 Objective HEENT: Eyes were normal. Pupils were round, equal, and reactive to light. Sclerae were white. Conjunctivae were pink. ENT, mucous membranes were not dehydrated. NECK: Supple. No lymphadenopathy. LUNGS: Clear. HEART: PMI was in fifth left intercostal space in midclavicular line. There was normal S1 and normal S2. There was no murmur. No arrhythmia. No S3. No S4. No pericardial rub. ABDOMEN: Soft, nontender without organomegaly. There were no masses palpable. Normal bowel sounds without bruits. There was no guarding. No rebound tenderness. No CVA tenderness. EXTREMITIES: No cyanosis, clubbing, and no edema. Extremities were warm. Microbiology Date/Time Source Procedure Growth Status 11/18/18 22:05 Blood Blood Culture - Preliminary Resulted 11/18/18 21:50 Blood Blood Culture - Preliminary Resulted 11/18/18 21:40 Rectum Received Current Medications Medications (Trade) Dose Ordered Sig/Penny Route PRN Reason Start Time Stop Time Status Last Admin Dose Admin Acetaminophen (Tylenol) 650 mg Q4H PRN ORAL Mild Pain/Temp > 100.5 11/19/18 04:15 12/19/18 04:14 11/20/18 12:31 Albuterol/ Ipratropium (Albuterol/ Ipratropium) 3 ml Q6HRT HHN 11/19/18 07:00 11/24/18 06:59 11/20/18 00:37 Amlodipine Besylate (Norvasc) 10 mg DAILY GT 11/19/18 09:00 12/19/18 08:59 11/20/18 09:08 Haloperidol (Haldol) 1 mg EVERY 8 HOURS GT 11/19/18 06:00 12/19/18 05:59 11/20/18 05:19 Heparin Sodium (Porcine) (Heparin 5000 units/ml) 5,000 units EVERY 12 HOURS SUBQ 11/19/18 09:00 12/19/18 08:59 11/20/18 09:07 Hydralazine HCl (Apresoline) 10 mg EVERY 4 HOURS GT 11/19/18 01:00 12/19/18 00:59 11/20/18 12:30 Lansoprazole (Prevacid) 30 mg DAILY GT 11/19/18 09:00 12/19/18 08:59 11/20/18 09:03 Metoprolol Tartrate (Lopressor) 50 mg EVERY 12 HOURS GT 11/19/18 09:00 12/19/18 08:59 11/20/18 09:08 Ondansetron HCl (Zofran) 4 mg Q8H PRN IM Nausea & Vomiting 11/19/18 01:00 12/19/18 00:59 Oxycodone/ Acetaminophen (Percocet 10/325) 1 tab Q4H PRN GT PRN 11/19/18 01:00 11/26/18 00:59 11/20/18 09:04 Piperacillin Sod/ Tazobactam Sod 3.375 gm/Sodium Chloride 110 ml @ 27.5 mls/hr EVERY 8 HOURS IVPB 11/19/18 06:00 11/24/18 05:59 11/20/18 05:19 Thiamine HCl (Vitamin B1) 100 mg DAILY GT 11/19/18 09:00 12/19/18 08:59 11/20/18 09:03 Vancomycin HCl 1 gm/Dextrose 275 ml @ 183.708 mls/hr Q24H IVPB 11/19/18 22:00 11/24/18 21:59 11/19/18 21:19 Doreen Nino M.D. Nov 20, 2018 13:02
[2018-11-20 16:00] VITALS: BP 135/81
--- NOTE | 2018-11-20 16:22 | Diagnostic Imaging Report ---
Indication: Pain and swelling around surgical scar, status post pacemaker placement Technique: Grayscale and duplex images area swelling in left chest overlying recently placed pacemaker Comparison: none Findings: Immediately overlying the pacemaker power pack, there is a mixed hypoechoic/anechoic area which measures 4.6 x 3.4 cm, by 0.9 cm thick. This is slightly compressible, avascular. No fluid collections are seen along the course of the leads Impression: 4.6 x 3.4 x 0.9 cm hypoechoic/anechoic area overlying left chest pacemaker power pack. This could represent either a discrete fluid collection or a focal area of very edematous tissue. Infected fluid pocket also possible. Findings discussed by phone with Dr. Dong at the time of interpretation
[2018-11-20 16:59] LABS: CREATINE KINASE 9 U/L (26-308)
[2018-11-20 17:00] LABS: APPEARANCE,URINE SLIGHTLY CLOUDY; BILIRUBIN, URINE NEGATIVE (NEGATIVE); COLOR,URINE PALE YELLOW; GLUCOSE, URINE (UA) NEGATIVE (NEGATIVE); KETONES,URINE NEGATIVE (NEGATIVE); LEUKOCYTE ESTERASE ,URINE 2+ (NEGATIVE); NITRITE,URINE NEGATIVE (NEGATIVE); PH,URINE 5 (4.5-8.0); PROTEIN,URINE 1+ (NEGATIVE); UROBILINOGEN,URINE NORMAL MG/DL (0.0-1.0)
[2018-11-20] MEDS: Ketorolac 30mg Inj IV PRN (18:18)
[2018-11-20] MEDS ORDERED: FLEET ENEMA133 ML RECTAL (19:47)
[2018-11-20] MEDS ORDERED: MELATONIN3 MG GT (19:47)
[2018-11-20] MEDS ORDERED: ISOSORBIDE DINI40 MG GT (19:47)
[2018-11-20] MEDS ORDERED: DULCOLAX10 MG RC (19:47)
[2018-11-20] MEDS ORDERED: MILK OF MA400 MG/51 GT (19:47)
[2018-11-20] MEDS ORDERED: KLONOPIN1 MG GT (19:47)
[2018-11-20] MEDS ORDERED: ZOLOFT100 MG GT (19:47)
[2018-11-20] MEDS ORDERED: SENNA8.6 M2 GT (19:47)
[2018-11-20] MEDS ORDERED: ZYPREXA7.5 MG GT (19:47)
[2018-11-20] MEDS ORDERED: AMIODARONE HCL200 MG ORAL (19:47)
[2018-11-20] MEDS ORDERED: COLACE100 MG GT (19:47)
[2018-11-20] MEDS ORDERED: NORCO 10-325 T1 EACH GT (19:47)
[2018-11-20] MEDS ORDERED: METOCLOPRA10 MG/10 M ORAL (19:47)
[2018-11-20] MEDS ORDERED: HEPARIN SO5000 UNIT2 SUBQ (19:47)
[2018-11-20] MEDS ORDERED: CARVEDILOL3.125 MG ORAL (19:47)
[2018-11-20] MEDS ORDERED: HYDRALAZINE HC100 MG ORAL (19:47)
[2018-11-20] MEDS ORDERED: GLYCOPYRROLATE1 MG GT (19:47)
[2018-11-20 20:00] VITALS: BP 155/67
[2018-11-20] MEDS: Vancomycin 1 GM in D5W 275 ML IVPB SCH (21:01)
[2018-11-21] VITALS: BP 140/57
--- NOTE | 2018-11-21 | Progress Note ---
DATE: 11/20/2018 SUBJECTIVE: The patient's pacemaker pocket is still warm, tender, and red with the pacemaker pocket containing fluid. The packet is warm and tender. PHYSICAL EXAMINATION: VITAL SIGNS: Blood pressure 135/81, her pulse is 63, respirations of 22, and temperature 99.8. HEENT: Eyes were normal. ENT, mucous membranes were moist and intact. NECK: Supple with no JVD without lymph nodes. Tracheostomy site is clean. LUNGS: Clear without rhonchi, rales, or wheezing. Secretions are small, thin, and massey. HEART: Normal sounds with regular beats. There is no S3, S4, or pericardial rub. ABDOMEN: Soft and nontender with normal bowel sounds. Gastrostomy site is clean. EXTREMITIES: Warm without cyanosis, clubbing, or edema. LABORATORY AND DIAGNOSTIC DATA: Her hemoglobin is 8.5, hematocrit 26.5 with MCV of 89, WBC of 13.5, and platelets of 352,000. Sedimentation rate is 70. Her BUN and creatinine are 58 and 1.9 respectively. Her sodium is 133, potassium 4.8, chloride 100, and CO2 is 23. Her uric acid is 3.9. Her total CK is 9. IMPRESSION AND PLAN: This patient's blood culture, which was positive in both with gram-positive cocci in cluster. The patient was seen today . She will undergo a transthoracic echocardiography. Cardiology consulted to remove the pacemaker from its current position. Repeat laboratory tests will be done in the a.m. Lucas Dong M.D. DR: SHAWN JOB#: [id number] CC:
[2018-11-21] MEDS: HydrALAZINE 10mg Tab GT SCH ×6 (00:01→20:13)
[2018-11-21] MEDS: Ketorolac 30mg Inj IV PRN ×3 (00:06→15:26)
[2018-11-21] MEDS: Albuterol/Ipratropium 3ml neb HHN SCH ×4 (00:45→19:22)
[2018-11-21 04:00] VITALS: BP 140/65
[2018-11-21] MEDS: Haloperidol 1mg tab GT SCH ×3 (05:01→21:04)
[2018-11-21 05:02] LABS: INR 1.1 (0.9-1.1)
[2018-11-21] MEDS: Piperacillin/Tazobactam 3.375 GM in NS 110 ML IVPB SCH ×3 (05:02→21:34)
[2018-11-21 05:05] LABS: BASOPHILS % (AUTO) 0.7 % (0.0-2.0); EOSINOPHILS % (AUTO) 6.7 % (0.0-3.0); HEMATOCRIT 25.2 % (37.0-47.0); HEMOGLOBIN 8.2 G/DL (12.0-16.0); LYMPHOCYTES % (AUTO) 21.3 % (20.0-45.0); MEAN CORPUSCULAR VOLUME 88 FL (80-99); NEUTROPHILS % (AUTO) 64.3 % (45.0-75.0); PLATELET COUNT 328 K/UL (150-450); RED BLOOD COUNT 2.86 M/UL (4.20-5.40); RED CELL DISTRIBUTION WIDTH 15.4 % (11.6-14.8); WHITE BLOOD COUNT 10.8 K/UL (4.8-10.8)
[2018-11-21 05:16] LABS: ANION GAP 9 mmol/L (5-15); BLOOD UREA NITROGEN 47 mg/dL (7-18); CALCIUM 8.7 MG/DL (8.5-10.1); CARBON DIOXIDE 25 MMOL/L (21-32); CHLORIDE 104 MMOL/L (98-107); CREATININE 1.6 MG/DL (0.55-1.30); SODIUM 138 MMOL/L (136-145)
[2018-11-21 05:21] LABS: LACTATE DEHYDROGENASE 195 U/L (81-234); PHOSPHORUS 3.9 MG/DL (2.5-4.9)
[2018-11-21 06:04] LABS: % IRON SATURATION 7 % (15-50); IRON 15 ug/dL (50-175); TOTAL IRON BINDING CAPACITY 230 ug/dL (250-450)
[2018-11-21 08:00] VITALS: BP 142/66
[2018-11-21] MEDS: Metoprolol Tartrate 50mg tab GT SCH ×2 (08:42→21:04)
[2018-11-21] MEDS: Thiamine 100mg tab GT SCH (08:43)
[2018-11-21] MEDS: Heparin 5000 units/ml inj SUBQ SCH ×2 (08:44→20:13)
--- NOTE | 2018-11-21 11:00 | Pulmonolgy Critical Care Note ---
Critical Care - Asmt/Plan Problems: (1) Chronic respiratory failure (2) Chest pain (3) JAVIER (acute kidney injury) (4) Anemia (5) Ventilator dependence (6) S/P aortic dissection repair (7) Tracheostomy in place (8) Feeding by G-tube Respiratory: monitor respiratory rate, adjust FIO2, CXR Cardiac: continue to monitor HR/BP Renal: F/U I&O, keep IV fluid, check electrolytes Infectious Disease: check cultures Gastrointestinal: continue feedings/current rate, hold feedings Endocrine: check TSH Hematologic: monitor H/H, transfuse if hgb<8.5 Neurologic: PRN Ativan, PRN Morphine, keep patient comfortable Affect: PRN ativan Prophylaxis: Protonix Critical Care - Objective Last 24 Hour Vital Signs Date Time Temp Pulse Resp B/P (MAP) Pulse Ox O2 Delivery O2 Flow Rate FiO2 11/21/18 10:33 60 25 40 11/21/18 09:14 98.1 11/21/18 08:43 62 142/66 11/21/18 08:42 62 142/66 11/21/18 08:42 142/66 11/21/18 08:39 62 21 40 11/21/18 08:00 98.1 61 21 142/66 (91) 99 11/21/18 08:00 40 11/21/18 06:45 60 21 100 Mechanical Ventilator 40 60 21 40 11/21/18 05:01 140/65 11/21/18 04:53 63 21 40 11/21/18 04:37 98.3 11/21/18 04:30 63 11/21/18 04:00 Mechanical Ventilator 11/21/18 04:00 40 11/21/18 04:00 98.8 62 20 140/65 (90) 98 11/21/18 02:54 61 18 40 11/21/18 00:45 60 22 100 Mechanical Ventilator 40 60 22 40 11/21/18 00:01 140/57 11/21/18 00:00 60 11/21/18 00:00 40 11/21/18 00:00 Mechanical Ventilator 11/21/18 00:00 98.1 63 24 140/57 (84) 95 11/20/18 23:19 60 21 40 11/20/18 21:26 63 142/68 11/20/18 20:57 60 16 40 11/20/18 20:17 155/67 11/20/18 20:00 98.3 60 20 155/67 (96) 99 11/20/18 20:00 40 11/20/18 20:00 60 11/20/18 20:00 Mechanical Ventilator 11/20/18 19:09 60 12 100 Mechanical Ventilator 40 60 12 40 11/20/18 17:15 135/81 11/20/18 16:55 62 22 100 Mechanical Ventilator 40 61 21 40 11/20/18 16:00 40 11/20/18 16:00 99.8 63 22 135/81 (99) 92 11/20/18 16:00 Mechanical Ventilator 11/20/18 15:26 63 21 100 Mechanical Ventilator 40 61 21 40 11/20/18 15:21 63 11/20/18 13:38 61 21 100 Mechanical Ventilator 40 61 21 40 11/20/18 12:30 151/74 11/20/18 12:00 Mechanical Ventilator 11/20/18 12:00 40 11/20/18 12:00 99.3 64 22 151/74 (99) 95 11/20/18 11:35 62 11/20/18 11:17 63 21 40 Status: awake Condition: critical, grave HEENT: atraumatic Lungs: clear Heart: HR/BP stable, regular Abdomen: non-tender, feeding tube Extremities: edema Decubiti: location Micro: Microbiology Date/Time Source Procedure Growth Status 11/18/18 22:05 Blood Blood Culture - Preliminary Gram Positive Cocci Resulted 11/18/18 21:50 Blood Blood Culture - Preliminary Gram Positive Cocci Resulted 11/20/18 16:10 Urine,Clean Catch Urine Culture - Preliminary NO GROWTH Resulted 11/18/18 21:40 Rectum - Final NO CARBAPENEM-RESISTANT ENTEROBACTERI... Complete 11/18/18 21:40 Rectum VRE Culture - Final Enterococcus Faecalis - Vre Complete Accucheck: 218 Critical Care - Subjective ROS Limited/Unobtainable: Yes Condition: critical EKG Rhythm: Sinus Rhythm FI02: 40 Vent Support Breath Rate: 10 Vent Support Mode: AC Vent Tidal Volume: 400 Sputum Amount: Small PEEP: 5.0 PIP: 15 I&O: Intake and Output 11/20/18 11/21/18 19:00 07:00 Intake Total 690.0 ml 812.9 ml Balance 690.0 ml 812.9 ml Intake Free Water 100 ml 100 ml IV Total 110.0 ml 512.9 ml Tube Feeding 480 ml 200 ml # Voids 2 4 CXR: US of chest reviewed, possible infected fluid in pacemaker pocket. Labs: Laboratory Tests Test 11/20/18 16:10 11/20/18 16:19 11/21/18 03:15 Urine Color Pale yellow Urine Appearance Slightly cloudy Urine pH 5 (4.5-8.0) Urine Specific [place] 1.010 (1.005-1.035) Urine Protein 1+ (NEGATIVE) H Urine Glucose (UA) Negative (NEGATIVE) Urine Ketones Negative (NEGATIVE) Urine Blood Negative (NEGATIVE) Urine Nitrite Negative (NEGATIVE) Urine Bilirubin Negative (NEGATIVE) Urine Urobilinogen Normal MG/DL (0.0-1.0) Urine Leukocyte Esterase 2+ (NEGATIVE) H Urine RBC 0-2 /HPF (0 - 2) Urine WBC 20-30 /HPF (0 - 2) H Urine Squamous Epithelial Cells Few /LPF (NONE/OCC) Urine Bacteria Few /HPF (NONE) Urine Yeast Few /HPF (NONE) H Urine Eosinophils None seen (NONE SEEN) Urine Random Sodium < 20 mmol/L (20-110) L Urine Potassium Timed 29 mmol/L (12-62) Uric Acid 3.9 MG/DL (2.6-7.2) Total Creatine Kinase 9 U/L (26-308) L White Blood Count 10.8 K/UL (4.8-10.8) Red Blood Count 2.86 M/UL (4.20-5.40) L Hemoglobin 8.2 G/DL (12.0-16.0) L Hematocrit 25.2 % (37.0-47.0) L Mean Corpuscular Volume 88 FL (80-99) Mean Corpuscular Hemoglobin 28.8 PG (27.0-31.0) Mean Corpuscular Hemoglobin Concent 32.7 G/DL (32.0-36.0) Red Cell Distribution Width 15.4 % (11.6-14.8) H Platelet Count 328 K/UL (150-450) Mean Platelet Volume 5.3 FL (6.5-10.1) L Neutrophils (%) (Auto) 64.3 % (45.0-75.0) Lymphocytes (%) (Auto) 21.3 % (20.0-45.0) Monocytes (%) (Auto) 7.0 % (1.0-10.0) Eosinophils (%) (Auto) 6.7 % (0.0-3.0) H Basophils (%) (Auto) 0.7 % (0.0-2.0) Differential Total Cells Counted 100 Neutrophils % (Manual) 55 % (45-75) Lymphocytes % (Manual) 22 % (20-45) Monocytes % (Manual) 16 % (1-10) H Eosinophils % (Manual) 7 % (0-3) H Basophils % (Manual) 0 % (0-2) Band Neutrophils 0 % (0-8) Platelet Estimate Adequate Platelet Morphology Normal Anisocytosis 1+ Erythrocyte Sedimentation Rate 82 MM/HR (0-20) H Reticulocyte Count 2.3 % (0.5-2.0) H Prothrombin Time 11.9 SEC (9.30-11.50) H Prothromb Time International Ratio 1.1 (0.9-1.1) Activated Partial Thromboplast Time 33 SEC (23-33) Sodium Level 138 MMOL/L (136-145) Potassium Level 4.0 MMOL/L (3.5-5.1) Chloride Level 104 MMOL/L (98-107) Carbon Dioxide Level 25 MMOL/L (21-32) Anion Gap 9 mmol/L (5-15) Blood Urea Nitrogen 47 mg/dL (7-18) H Creatinine 1.6 MG/DL (0.55-1.30) H Estimat Glomerular Filtration Rate 34.7 mL/min (>60) Glucose Level 93 MG/DL (74-106) Calcium Level 8.7 MG/DL (8.5-10.1) Phosphorus Level 3.9 MG/DL (2.5-4.9) Magnesium Level 2.2 MG/DL (1.8-2.4) Iron Level 15 ug/dL (50-175) L Total Iron Binding Capacity 230 ug/dL (250-450) L Percent Iron Saturation 7 % (15-50) L Unsaturated Iron Binding 215 ug/dL (112-346) Lactate Dehydrogenase 195 U/L (81-234) C-Reactive Protein, Quantitative 11.9 mg/dL (0.00-0.90) H Carcinoembryonic Antigen Pending Vitamin B12 Level 1152 PG/ML (193-986) H Folate 40.9 NG/ML (8.6-58.9) Ranjith Arora MD Nov 21, 2018 11:00
[2018-11-21] MEDS: DiphenhydrAMINE 50mg/ml Inj IVP PRN ×2 (11:02→17:27)
[2018-11-21 12:00] VITALS: BP 126/60
--- NOTE | 2018-11-21 13:20 | Infectious Diseases Prog Note ---
Assessment/Plan Assessment/Plan Assessment: Afebrile Mild leukocytosis, SP -u.a wbc 5-10, nit neg, leuk +1 PPM site infection (redness and pain, bacteremia) and likely pocket abscess- r/ o endocarditis/PPM lead vegetation) -2d echo: no vegetation seen -US chest: 4.6 x 3.4 x 0.9 cm hypoechoic/anechoic area overlying left chest pacemaker power pack. This could represent either a discrete fluid collection or a focal area of very edematous tissue. Infected fluid pocket also possible. Gram positive bacteremia -11/18 Bcx 3/4 GPC clusters; 11/20 Bcx p Probable PNA -CXR: etrocardiac consolidation, possibly pneumonia. Right basilar atelectasis Recent aspiration PNA and UTI (late September 2018) -u/a wbc 5-10, nit +, leuk +1; ucx >100k Enterobacter aerogenes (R ancef, nitro; otherwise S) -sp cx MRSA HTN anxiety chronic resp failure s/p trach s/p PEG aortic dissection s/p repair early 2017 [place] resident Plan: -Continue empiric IV Vancomycin #4 pending ID and sensi GPC blood culture -Continue empiric Zosyn #4 pending sp culture -f.u cx -Monitor CBC/CMP, temperatures -will need ABBIE to eval for endocarditis and/or PPM lead vegetation -Cards eval- will likely need PPM extraction -f/u repeat Bcx x2, sp cx Thank you for this consultation. Will continue to follow along with you. Subjective Allergies: Coded Allergies: No Known Allergies (Unverified , 10/10/17) Subjective afebrile repeat Bcx p Objective Vital Signs Last 24 Hour Vital Signs Date Time Temp Pulse Resp B/P (MAP) Pulse Ox O2 Delivery O2 Flow Rate FiO2 11/21/18 12:00 40 11/21/18 12:00 98.4 60 20 126/60 (82) 100 11/21/18 12:00 Mechanical Ventilator 11/21/18 11:30 62 11/21/18 10:33 60 25 40 11/21/18 09:14 98.1 11/21/18 08:43 62 142/66 11/21/18 08:42 62 142/66 11/21/18 08:42 142/66 11/21/18 08:39 62 21 40 11/21/18 08:00 98.1 61 21 142/66 (91) 99 11/21/18 08:00 Mechanical Ventilator 11/21/18 08:00 62 11/21/18 08:00 40 11/21/18 06:45 60 21 100 Mechanical Ventilator 40 60 21 40 11/21/18 05:01 140/65 11/21/18 04:53 63 21 40 11/21/18 04:37 98.3 11/21/18 04:30 63 11/21/18 04:00 Mechanical Ventilator 11/21/18 04:00 40 11/21/18 04:00 98.8 62 20 140/65 (90) 98 11/21/18 02:54 61 18 40 11/21/18 00:45 60 22 100 Mechanical Ventilator 40 60 22 40 11/21/18 00:01 140/57 11/21/18 00:00 60 11/21/18 00:00 40 11/21/18 00:00 Mechanical Ventilator 11/21/18 00:00 98.1 63 24 140/57 (84) 95 11/20/18 23:19 60 21 40 11/20/18 21:26 63 142/68 11/20/18 20:57 60 16 40 11/20/18 20:17 155/67 11/20/18 20:00 98.3 60 20 155/67 (96) 99 11/20/18 20:00 40 11/20/18 20:00 60 11/20/18 20:00 Mechanical Ventilator 11/20/18 19:09 60 12 100 Mechanical Ventilator 40 60 12 40 11/20/18 17:15 135/81 11/20/18 16:55 62 22 100 Mechanical Ventilator 40 61 21 40 11/20/18 16:00 40 11/20/18 16:00 99.8 63 22 135/81 (99) 92 11/20/18 16:00 Mechanical Ventilator 11/20/18 15:26 63 21 100 Mechanical Ventilator 40 61 21 40 11/20/18 15:21 63 11/20/18 13:38 61 21 100 Mechanical Ventilator 40 61 21 40 Height (Feet): 5 Height (Inches): 5.00 Weight (Pounds): 145 Objective HEENT: Eyes were normal. Pupils were round, equal, and reactive to light. Sclerae were white. Conjunctivae were pink. ENT, mucous membranes were not dehydrated. NECK: Supple. No lymphadenopathy. LUNGS: Clear. HEART: PMI was in fifth left intercostal space in midclavicular line. There was normal S1 and normal S2. There was no murmur. No arrhythmia. No S3. No S4. No pericardial rub. ABDOMEN: Soft, nontender without organomegaly. There were no masses palpable. Normal bowel sounds without bruits. There was no guarding. No rebound tenderness. No CVA tenderness. EXTREMITIES: No cyanosis, clubbing, and no edema. Extremities were warm. Microbiology Date/Time Source Procedure Growth Status 11/18/18 22:05 Blood Blood Culture - Preliminary Gram Positive Cocci Resulted 11/18/18 21:50 Blood Blood Culture - Preliminary Gram Positive Cocci Resulted 11/20/18 16:10 Urine,Clean Catch Urine Culture - Preliminary NO GROWTH Resulted 11/18/18 21:40 Rectum - Final NO CARBAPENEM-RESISTANT ENTEROBACTERI... Complete 11/18/18 21:40 Rectum VRE Culture - Final Enterococcus Faecalis - Vre Complete Laboratory Tests Test 11/20/18 16:10 11/20/18 16:19 11/21/18 03:15 Urine Color Pale yellow Urine Appearance Slightly cloudy Urine pH 5 (4.5-8.0) Urine Specific [place] 1.010 (1.005-1.035) Urine Protein 1+ (NEGATIVE) H Urine Glucose (UA) Negative (NEGATIVE) Urine Ketones Negative (NEGATIVE) Urine Blood Negative (NEGATIVE) Urine Nitrite Negative (NEGATIVE) Urine Bilirubin Negative (NEGATIVE) Urine Urobilinogen Normal MG/DL (0.0-1.0) Urine Leukocyte Esterase 2+ (NEGATIVE) H Urine RBC 0-2 /HPF (0 - 2) Urine WBC 20-30 /HPF (0 - 2) H Urine Squamous Epithelial Cells Few /LPF (NONE/OCC) Urine Bacteria Few /HPF (NONE) Urine Yeast Few /HPF (NONE) H Urine Eosinophils None seen (NONE SEEN) Urine Random Sodium < 20 mmol/L (20-110) L Urine Potassium Timed 29 mmol/L (12-62) Uric Acid 3.9 MG/DL (2.6-7.2) Total Creatine Kinase 9 U/L (26-308) L White Blood Count 10.8 K/UL (4.8-10.8) Red Blood Count 2.86 M/UL (4.20-5.40) L Hemoglobin 8.2 G/DL (12.0-16.0) L Hematocrit 25.2 % (37.0-47.0) L Mean Corpuscular Volume 88 FL (80-99) Mean Corpuscular Hemoglobin 28.8 PG (27.0-31.0) Mean Corpuscular Hemoglobin Concent 32.7 G/DL (32.0-36.0) Red Cell Distribution Width 15.4 % (11.6-14.8) H Platelet Count 328 K/UL (150-450) Mean Platelet Volume 5.3 FL (6.5-10.1) L Neutrophils (%) (Auto) 64.3 % (45.0-75.0) Lymphocytes (%) (Auto) 21.3 % (20.0-45.0) Monocytes (%) (Auto) 7.0 % (1.0-10.0) Eosinophils (%) (Auto) 6.7 % (0.0-3.0) H Basophils (%) (Auto) 0.7 % (0.0-2.0) Differential Total Cells Counted 100 Neutrophils % (Manual) 55 % (45-75) Lymphocytes % (Manual) 22 % (20-45) Monocytes % (Manual) 16 % (1-10) H Eosinophils % (Manual) 7 % (0-3) H Basophils % (Manual) 0 % (0-2) Band Neutrophils 0 % (0-8) Platelet Estimate Adequate Platelet Morphology Normal Anisocytosis 1+ Erythrocyte Sedimentation Rate 82 MM/HR (0-20) H Reticulocyte Count 2.3 % (0.5-2.0) H Prothrombin Time 11.9 SEC (9.30-11.50) H Prothromb Time International Ratio 1.1 (0.9-1.1) Activated Partial Thromboplast Time 33 SEC (23-33) Sodium Level 138 MMOL/L (136-145) Potassium Level 4.0 MMOL/L (3.5-5.1) Chloride Level 104 MMOL/L (98-107) Carbon Dioxide Level 25 MMOL/L (21-32) Anion Gap 9 mmol/L (5-15) Blood Urea Nitrogen 47 mg/dL (7-18) H Creatinine 1.6 MG/DL (0.55-1.30) H Estimat Glomerular Filtration Rate 34.7 mL/min (>60) Glucose Level 93 MG/DL (74-106) Calcium Level 8.7 MG/DL (8.5-10.1) Phosphorus Level 3.9 MG/DL (2.5-4.9) Magnesium Level 2.2 MG/DL (1.8-2.4) Iron Level 15 ug/dL (50-175) L Total Iron Binding Capacity 230 ug/dL (250-450) L Percent Iron Saturation 7 % (15-50) L Unsaturated Iron Binding 215 ug/dL (112-346) Lactate Dehydrogenase 195 U/L (81-234) C-Reactive Protein, Quantitative 11.9 mg/dL (0.00-0.90) H Carcinoembryonic Antigen Pending Vitamin B12 Level 1152 PG/ML (193-986) H Folate 40.9 NG/ML (8.6-58.9) Current Medications Medications (Trade) Dose Ordered Sig/Penny Route PRN Reason Start Time Stop Time Status Last Admin Dose Admin Acetaminophen (Tylenol) 650 mg Q4H PRN ORAL Mild Pain/Temp > 100.5 11/19/18 04:15 12/19/18 04:14 11/21/18 04:07 Albuterol/ Ipratropium (Albuterol/ Ipratropium) 3 ml Q6HRT HHN 11/19/18 07:00 11/24/18 06:59 11/21/18 06:50 Amlodipine Besylate (Norvasc) 10 mg DAILY GT 11/19/18 09:00 12/19/18 08:59 11/21/18 08:43 Diphenhydramine HCl (Benadryl) 25 mg Q6H PRN IVP Itching 11/21/18 10:45 12/21/18 10:44 11/21/18 11:02 Haloperidol (Haldol) 1 mg EVERY 8 HOURS GT 11/19/18 06:00 12/19/18 05:59 11/21/18 05:01 Heparin Sodium (Porcine) (Heparin 5000 units/ml) 5,000 units EVERY 12 HOURS SUBQ 11/19/18 09:00 12/19/18 08:59 11/20/18 20:17 Hydralazine HCl (Apresoline) 10 mg EVERY 4 HOURS GT 11/19/18 01:00 12/19/18 00:59 11/21/18 08:42 Ketorolac Tromethamine (Toradol 30mg) 30 mg Q6H PRN IV For Pain 4-10 11/20/18 18:00 11/25/18 17:59 11/21/18 08:44 Lansoprazole (Prevacid) 30 mg DAILY GT 11/19/18 09:00 12/19/18 08:59 11/21/18 08:42 Metoprolol Tartrate (Lopressor) 50 mg EVERY 12 HOURS GT 11/19/18 09:00 12/19/18 08:59 11/21/18 08:42 Ondansetron HCl (Zofran) 4 mg Q8H PRN IM Nausea & Vomiting 11/19/18 01:00 12/19/18 00:59 Piperacillin Sod/ Tazobactam Sod 3.375 gm/Sodium Chloride 110 ml @ 27.5 mls/hr EVERY 8 HOURS IVPB 11/19/18 06:00 11/24/18 05:59 11/21/18 05:02 Thiamine HCl (Vitamin B1) 100 mg DAILY GT 11/19/18 09:00 12/19/18 08:59 11/21/18 08:43 Vancomycin HCl 1 gm/Dextrose 275 ml @ 183.708 mls/hr Q24H IVPB 11/19/18 22:00 11/24/18 21:59 11/20/18 21:01 Doreen Nino M.D. Nov 21, 2018 13:20
[2018-11-21 16:00] VITALS: BP 112/48
[2018-11-21] MEDS: HYDROmorphone 1mg/ml Carpuject IVP PRN ×2 (16:19→20:36)
[2018-11-21 20:00] VITALS: BP 157/81
[2018-11-21] MEDS: Vancomycin 1 GM in D5W 275 ML IVPB SCH (22:42)
--- NOTE | 2018-11-21 23:03 | Consultation ---
Consult Note Consult Note Cardiology for Dr. Rooney full consult dictated. #[id number] Lani Lyle MD Nov 21, 2018 23:03
[2018-11-22] VITALS: BP 129/53
--- NOTE | 2018-11-22 00:15 | Consultation ---
DATE OF CONSULTATION: 11/21/2018 NOTE: "INCOMPLETE DICTATION" CARDIOLOGY CONSULTATION This is being done as coverage for Dr. Rooney. CONSULTING PHYSICIAN: Lani Lyle M.D. REASON FOR CONSULTATION: Bacteremia and possible pacemaker infection. HISTORY OF PRESENT ILLNESS: The patient is a 48-year-old woman with a history of aortic dissection, status post repair approximately 1 year ago ([facility]), history of pneumonia, respiratory failure and chronic tracheostomy and ventilator over the past 4-5 months, remote history of methamphetamine use and tobacco use, history of hypertension, and G-tube placement. She states that she had traveled to [place] to visit family and while there developed dizziness. She presented to [facility] and was noted to have significant bradycardia, sinus bradycardia to the 30s, and permanent pacemaker ([employer]) was placed; this was about 4 weeks ago. She was [facility] to [facility] by EMS on 11/18/2018 with chest pain. Per the admit note, she had erythema over the pacemaker pocket site. White blood count was elevated at 12,400. Blood cultures were obtained and 2 cultures are growing gram-positive . Lani Lyle M.D. DR: Jorgito JOB#: [id number] CC:
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
[2018-11-22] MEDS: HYDROmorphone 1mg/ml Carpuject IVP PRN ×5 (00:53→17:05)
[2018-11-22] MEDS: Albuterol/Ipratropium 3ml neb HHN SCH ×4 (01:24→19:17)
[2018-11-22] MEDS: HydrALAZINE 10mg Tab GT SCH ×6 (01:32→21:15)
[2018-11-22 04:00] VITALS: BP 140/73
[2018-11-22] MEDS: Haloperidol 1mg tab GT SCH ×3 (05:01→22:08)
[2018-11-22] MEDS: Piperacillin/Tazobactam 3.375 GM in NS 110 ML IVPB SCH ×3 (05:39→22:08)
[2018-11-22 08:00] VITALS: BP 129/57
[2018-11-22] MEDS: Heparin 5000 units/ml inj SUBQ SCH ×2 (09:03→21:16)
[2018-11-22] MEDS: Thiamine 100mg tab GT SCH (09:04)
[2018-11-22] MEDS: Metoprolol Tartrate 50mg tab GT SCH ×2 (09:59→21:14)
--- NOTE | 2018-11-22 11:04 | Pulmonolgy Critical Care Note ---
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, 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 Discussed with: nurses, consultants, 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 - Objective Last 24 Hour Vital Signs Date Time Temp Pulse Resp B/P (MAP) Pulse Ox O2 Delivery O2 Flow Rate FiO2 11/22/18 10:00 62 131/60 11/22/18 09:59 62 131/60 11/22/18 09:38 67 11/22/18 09:07 60 23 40 11/22/18 09:04 129/57 11/22/18 08:00 40 11/22/18 08:00 Mechanical Ventilator 11/22/18 08:00 97.4 61 18 129/57 (81) 97 11/22/18 06:44 60 22 100 Mechanical Ventilator 40 60 18 40 11/22/18 05:38 142/63 11/22/18 05:27 98.7 11/22/18 05:20 60 18 40 11/22/18 04:00 98.2 61 18 140/73 (95) 99 11/22/18 04:00 60 11/22/18 04:00 Mechanical Ventilator 11/22/18 04:00 40 11/22/18 02:57 60 23 40 11/22/18 01:34 61 16 99 Mechanical Ventilator 40 11/22/18 01:32 133/68 11/22/18 01:24 60 16 99 Mechanical Ventilator 40 60 16 40 11/22/18 00:00 98.4 60 18 129/53 (78) 99 11/22/18 00:00 61 11/22/18 00:00 40 11/22/18 00:00 Mechanical Ventilator 11/21/18 23:49 98.7 11/21/18 23:07 62 22 40 11/21/18 21:07 60 19 40 11/21/18 21:04 63 146/70 11/21/18 20:13 157/81 11/21/18 20:00 40 11/21/18 20:00 Mechanical Ventilator 11/21/18 20:00 60 11/21/18 20:00 98.7 60 20 157/81 (106) 99 11/21/18 19:33 60 19 100 Mechanical Ventilator 40 11/21/18 19:22 61 23 100 Mechanical Ventilator 40 61 23 40 11/21/18 17:28 139/69 11/21/18 16:57 65 21 40 11/21/18 16:00 40 11/21/18 16:00 98.8 60 21 112/48 (69) 99 11/21/18 16:00 Mechanical Ventilator 11/21/18 15:56 98.4 11/21/18 15:30 61 11/21/18 15:14 60 25 40 11/21/18 13:58 63 22 100 Mechanical Ventilator 40 63 22 40 11/21/18 13:48 135/68 11/21/18 12:00 40 11/21/18 12:00 98.4 60 20 126/60 (82) 100 11/21/18 12:00 Mechanical Ventilator 11/21/18 11:30 62 Status: sedated Condition: critical Lungs: clear Heart: HR/BP unstable Abdomen: active bowel sounds Extremities: no C/C/E Micro: Microbiology Date/Time Source Procedure Growth Status 11/20/18 16:25 Blood Blood Culture - Preliminary NO GROWTH AFTER 24 HOURS Resulted 11/20/18 16:19 Blood Blood Culture - Preliminary NO GROWTH AFTER 24 HOURS Resulted 11/20/18 18:30 Sputum Induced Gram Stain - Final Resulted 11/20/18 18:30 Sputum Culture - Preliminary Gram Negative Bacillus 1 Resulted 11/20/18 16:10 Urine,Clean Catch Urine Culture - Final NO GROWTH AFTER 48 HOURS Complete Accucheck: 218 Critical Care - Subjective ROS Limited/Unobtainable: No Condition: critical EKG Rhythm: Sinus Rhythm FI02: 40 Vent Support Breath Rate: 10 Vent Support Mode: AC Vent Tidal Volume: 400 Sputum Amount: Small PEEP: 5.0 PIP: 13 Tube Feeding Amount: 40 I&O: Intake and Output 11/21/18 11/22/18 19:00 07:00 Intake Total 550.0 ml 1057.416 ml Balance 550.0 ml 1057.416 ml Intake Free Water 100 ml IV Total 110.0 ml 477.416 ml Tube Feeding 320 ml 480 ml Other 120 ml # Voids 2 3 Labs: Laboratory Tests Test 11/21/18 21:40 Vancomycin Level Trough 17.7 ug/mL (5.0-12.0) H Ranjith Arora MD Nov 22, 2018 11:04
[2018-11-22 12:00] VITALS: BP 151/67
--- NOTE | 2018-11-22 13:03 | Infectious Diseases Prog Note ---
Assessment/Plan Assessment/Plan Assessment: Afebrile Mild leukocytosis, SP -u.a wbc 5-10, nit neg, leuk +1 PPM site infection (redness and pain, bacteremia) and likely pocket abscess- r/ o endocarditis/PPM lead vegetation) -2d echo: no vegetation seen -US chest: 4.6 x 3.4 x 0.9 cm hypoechoic/anechoic area overlying left chest pacemaker power pack. This could represent either a discrete fluid collection or a focal area of very edematous tissue. Infected fluid pocket also possible. Gram positive bacteremia- real bacteremia -11/18 Bcx 3/4 S. epi; 11/20 Bcx NTD Probable PNA -CXR: etrocardiac consolidation, possibly pneumonia. Right basilar atelectasis -sp cx GNR Recent aspiration PNA and UTI (late September 2018) -u/a wbc 5-10, nit +, leuk +1; ucx >100k Enterobacter aerogenes (R ancef, nitro; otherwise S) -sp cx MRSA HTN anxiety chronic resp failure s/p trach s/p PEG thoracic aortic dissection s/p repair early 2017 [place] resident Plan: -Continue empiric IV Vancomycin #5 for S. epi bacteremia, PPM site infection and abscess -Continue empiric Zosyn #5 pending sp culture -f.u cx -Monitor CBC/CMP, temperatures -will need ABBIE to eval for endocarditis and/or PPM lead vegetation -Cards f/u - will need PPM extraction -f/u repeat Bcx x2, sp cx Thank you for this consultation. Will continue to follow along with you. Subjective Allergies: Coded Allergies: No Known Allergies (Unverified , 10/10/17) Subjective afebrile no leukocytosis repeat Bcx NTD Objective Vital Signs Last 24 Hour Vital Signs Date Time Temp Pulse Resp B/P (MAP) Pulse Ox O2 Delivery O2 Flow Rate FiO2 11/22/18 12:00 Mechanical Ventilator 11/22/18 12:00 40 11/22/18 12:00 98.7 63 20 151/67 (95) 97 11/22/18 11:26 61 21 40 11/22/18 10:00 62 131/60 11/22/18 09:59 62 131/60 11/22/18 09:38 67 11/22/18 09:07 60 23 40 11/22/18 09:04 129/57 11/22/18 08:00 40 11/22/18 08:00 Mechanical Ventilator 11/22/18 08:00 97.4 61 18 129/57 (81) 97 11/22/18 06:44 60 22 100 Mechanical Ventilator 40 60 18 40 11/22/18 05:38 142/63 11/22/18 05:27 98.7 11/22/18 05:20 60 18 40 11/22/18 04:00 98.2 61 18 140/73 (95) 99 11/22/18 04:00 60 11/22/18 04:00 Mechanical Ventilator 11/22/18 04:00 40 11/22/18 02:57 60 23 40 11/22/18 01:34 61 16 99 Mechanical Ventilator 40 11/22/18 01:32 133/68 11/22/18 01:24 60 16 99 Mechanical Ventilator 40 60 16 40 11/22/18 00:00 98.4 60 18 129/53 (78) 99 11/22/18 00:00 61 11/22/18 00:00 40 11/22/18 00:00 Mechanical Ventilator 11/21/18 23:49 98.7 11/21/18 23:07 62 22 40 11/21/18 21:07 60 19 40 11/21/18 21:04 63 146/70 11/21/18 20:13 157/81 11/21/18 20:00 40 11/21/18 20:00 Mechanical Ventilator 11/21/18 20:00 60 11/21/18 20:00 98.7 60 20 157/81 (106) 99 11/21/18 19:33 60 19 100 Mechanical Ventilator 40 11/21/18 19:22 61 23 100 Mechanical Ventilator 40 61 23 40 11/21/18 17:28 139/69 11/21/18 16:57 65 21 40 11/21/18 16:00 40 11/21/18 16:00 98.8 60 21 112/48 (69) 99 11/21/18 16:00 Mechanical Ventilator 11/21/18 15:56 98.4 11/21/18 15:30 61 11/21/18 15:14 60 25 40 11/21/18 13:58 63 22 100 Mechanical Ventilator 40 63 22 40 11/21/18 13:48 135/68 Height (Feet): 5 Height (Inches): 5.00 Weight (Pounds): 145 Objective HEENT: Eyes were normal. Pupils were round, equal, and reactive to light. Sclerae were white. Conjunctivae were pink. ENT, mucous membranes were not dehydrated. NECK: Supple. No lymphadenopathy. LUNGS: Clear. HEART: PMI was in fifth left intercostal space in midclavicular line. There was normal S1 and normal S2. There was no murmur. No arrhythmia. No S3. No S4. No pericardial rub. ABDOMEN: Soft, nontender without organomegaly. There were no masses palpable. Normal bowel sounds without bruits. There was no guarding. No rebound tenderness. No CVA tenderness. EXTREMITIES: No cyanosis, clubbing, and no edema. Extremities were warm. Microbiology Date/Time Source Procedure Growth Status 11/20/18 16:25 Blood Blood Culture - Preliminary NO GROWTH AFTER 24 HOURS Resulted 11/20/18 16:19 Blood Blood Culture - Preliminary NO GROWTH AFTER 24 HOURS Resulted 11/20/18 18:30 Sputum Induced Gram Stain - Final Resulted 11/20/18 18:30 Sputum Culture - Preliminary Gram Negative Bacillus 1 Resulted 11/20/18 16:10 Urine,Clean Catch Urine Culture - Final NO GROWTH AFTER 48 HOURS Complete Laboratory Tests Test 11/21/18 21:40 Vancomycin Level Trough 17.7 ug/mL (5.0-12.0) H Current Medications Medications (Trade) Dose Ordered Sig/Penny Route PRN Reason Start Time Stop Time Status Last Admin Dose Admin Acetaminophen (Tylenol) 650 mg Q4H PRN ORAL Mild Pain/Temp > 100.5 11/19/18 04:15 12/19/18 04:14 11/21/18 23:19 Albuterol/ Ipratropium (Albuterol/ Ipratropium) 3 ml Q6HRT HHN 11/19/18 07:00 11/24/18 06:59 11/22/18 06:47 Amlodipine Besylate (Norvasc) 10 mg DAILY GT 11/19/18 09:00 12/19/18 08:59 11/22/18 10:00 Diphenhydramine HCl (Benadryl) 25 mg Q6H PRN IVP Itching 11/21/18 10:45 12/21/18 10:44 11/21/18 17:27 Haloperidol (Haldol) 1 mg EVERY 8 HOURS GT 11/19/18 06:00 12/19/18 05:59 11/22/18 05:01 Heparin Sodium (Porcine) (Heparin 5000 units/ml) 5,000 units EVERY 12 HOURS SUBQ 11/19/18 09:00 12/19/18 08:59 11/22/18 09:03 Hydralazine HCl (Apresoline) 10 mg EVERY 4 HOURS GT 11/19/18 01:00 12/19/18 00:59 11/22/18 09:04 Hydromorphone HCl (Dilaudid) 1 mg Q4H PRN IVP Moderate Pain (Pain Scale 4-6) 11/21/18 16:00 11/28/18 15:59 11/22/18 09:05 Ketorolac Tromethamine (Toradol 30mg) 30 mg Q6H PRN IV For Pain 4-10 11/20/18 18:00 11/25/18 17:59 11/21/18 15:26 Lansoprazole (Prevacid) 30 mg DAILY GT 11/19/18 09:00 12/19/18 08:59 11/22/18 08:53 Metoprolol Tartrate (Lopressor) 50 mg EVERY 12 HOURS GT 11/19/18 09:00 12/19/18 08:59 11/22/18 09:59 Ondansetron HCl (Zofran) 4 mg Q8H PRN IM Nausea & Vomiting 11/19/18 01:00 12/19/18 00:59 Piperacillin Sod/ Tazobactam Sod 3.375 gm/Sodium Chloride 110 ml @ 27.5 mls/hr EVERY 8 HOURS IVPB 11/19/18 06:00 11/24/18 05:59 11/22/18 05:39 Thiamine HCl (Vitamin B1) 100 mg DAILY GT 11/19/18 09:00 12/19/18 08:59 11/22/18 09:04 Vancomycin HCl 1 gm/Dextrose 275 ml @ 183.708 mls/hr Q24H IVPB 11/19/18 22:00 11/24/18 21:59 11/21/18 22:42 Doreen Nino M.D. Nov 22, 2018 13:03
[2018-11-22 16:00] VITALS: BP 130/70
[2018-11-22] MEDS: DiphenhydrAMINE 50mg/ml Inj IVP PRN (19:15)
[2018-11-22 20:00] VITALS: BP 177/78
--- NOTE | 2018-11-22 20:27 | Cardiology Progress Note ---
Assessment/Plan Assessment/Plan pacemaker pocket infection bacteremia staph epi HTN anxiety chronic resp failure s/p trach s/p PEG thoracic aortic dissection s/p repair early 2018 [place] resident repeat cx so far neg i personally reviewed echo no vegetation noted there is AR n TR nto sig to have pacer explanted by dr fleming if nto dependent keep on iv abx coag neg is on a vent need sedative meds as appear quite anxious Subjective ROS Limited/Unobtainable: Yes Subjective anxious is trying to get out of bed Objective Last 24 Hour Vital Signs Date Time Temp Pulse Resp B/P (MAP) Pulse Ox O2 Delivery O2 Flow Rate FiO2 11/22/18 19:27 76 32 100 Mechanical Ventilator 60 11/22/18 19:17 84 33 100 Mechanical Ventilator 60 84 33 60 11/22/18 17:19 82 30 40 11/22/18 17:05 130/70 11/22/18 16:00 Mechanical Ventilator 11/22/18 16:00 98.2 67 18 130/70 (90) 98 11/22/18 16:00 40 11/22/18 15:21 66 11/22/18 15:09 66 24 40 11/22/18 13:42 68 27 98 Mechanical Ventilator 40 68 27 40 11/22/18 13:05 151/67 11/22/18 12:00 Mechanical Ventilator 11/22/18 12:00 40 11/22/18 12:00 98.7 63 20 151/67 (95) 97 11/22/18 11:50 65 11/22/18 11:26 61 21 40 11/22/18 10:00 62 131/60 11/22/18 09:59 62 131/60 11/22/18 09:38 67 11/22/18 09:07 60 23 40 11/22/18 09:04 129/57 11/22/18 08:00 40 11/22/18 08:00 Mechanical Ventilator 11/22/18 08:00 97.4 61 18 129/57 (81) 97 11/22/18 06:44 60 22 100 Mechanical Ventilator 40 60 18 40 11/22/18 05:38 142/63 11/22/18 05:27 98.7 11/22/18 05:20 60 18 40 11/22/18 04:00 98.2 61 18 140/73 (95) 99 11/22/18 04:00 60 10/10/19 04:00 Mechanical Ventilator 11/22/18 04:00 40 11/22/18 02:57 60 23 40 11/22/18 01:34 61 16 99 Mechanical Ventilator 40 11/22/18 01:32 133/68 11/22/18 01:24 60 16 99 Mechanical Ventilator 40 60 16 40 11/22/18 00:00 98.4 60 18 129/53 (78) 99 11/22/18 00:00 61 11/22/18 00:00 40 11/22/18 00:00 Mechanical Ventilator 11/21/18 23:49 98.7 11/21/18 23:07 62 22 40 11/21/18 21:07 60 19 40 11/21/18 21:04 63 146/70 General Appearance: no apparent distress, alert, on vent, patient on isolation Neck: supple Cardiovascular: normal rate Respiratory/Chest: lungs clear Abdomen: normal bowel sounds, non tender, soft Extremities: no swelling Intake and Output 11/21/18 11/22/18 19:00 07:00 Intake Total 550.0 ml 1057.416 ml Balance 550.0 ml 1057.416 ml Intake Free Water 100 ml IV Total 110.0 ml 477.416 ml Tube Feeding 320 ml 480 ml Other 120 ml # Voids 2 3 Laboratory Tests Test 11/21/18 21:40 11/22/18 17:00 Vancomycin Level Trough 17.7 ug/mL (5.0-12.0) H Stool Occult Blood Pending Microbiology Date/Time Source Procedure Growth Status 11/20/18 16:25 Blood Blood Culture - Preliminary NO GROWTH AFTER 24 HOURS Resulted 11/20/18 16:19 Blood Blood Culture - Preliminary NO GROWTH AFTER 24 HOURS Resulted 11/20/18 18:30 Sputum Induced Gram Stain - Final Resulted 11/20/18 18:30 Sputum Culture - Preliminary Gram Negative Bacillus 1 Resulted 11/20/18 16:10 Urine,Clean Catch Urine Culture - Final NO GROWTH AFTER 48 HOURS Complete Carlos Rooney MD Nov 22, 2018 20:27
[2018-11-22] MEDS ORDERED: LORazepam Inj 2mg/ml 1ml IV SCH (20:30)
--- NOTE | 2018-11-22 21:12 | Cardiology Report ---
APPROVED REPORT EXAM: Two-dimensional and M-mode echocardiogram with Doppler and color Doppler. INDICATION Vegetation M-Mode DIMENSIONS IVSd1.0 (0.7-1.1cm)Left Atrium (MM)3.8 (1.6-4.0cm) LVDd4.3 (3.5-5.6cm)Aortic Root3.0 (2.0-3.7cm) PWd1.0 (0.7-1.1cm)Aortic Cusp Exc.2.0 (1.5-2.0cm) LVDs2.9 (2.5-4.0cm) PWs1.5 cm Normal left ventricular chamber size, systolic function and wall motion. Left ventricular ejection fraction estimated to be 60-65 %. No evidence of left ventricular hypertrophy. No evidence of pericardial effusion. All other cardiac chamber sizes are within normal limits. Focal aortic valve sclerosis with adequate cusp excursion. Thickened mitral valve leaflets with normal excursion. Mild mitral annulus and aortic root calcification. Normal pulmonic valve structure. Normal tricuspid valve structure. IVC is normal in size without physiological collapse. No discrete vegetations seen. A color flow and spectral Doppler study was performed and revealed: Moderate aortic regurgitation. Mild mitral regurgitation. Pseudonormal left ventricular physiology or grade II LV diastolic dysfunction. Mild tricuspid regurgitation. Tricuspid systolic velocities suggests peak right ventricular systolic pressure of 38 mmHg, consistent with mild pulmonary hypertension. Mild to moderate pulmonic regurgitation present.
--- NOTE | 2018-11-22 21:13 | Cardiology Report ---
APPROVED REPORT EKG Measurement Heart [id number] IA [id number] [id number] Atrial paced, ventricular sensed rhythm. Electronic pacemaker. Septal infarct, age undetermined Abnormal ECG
[2018-11-22] MEDS: Vancomycin 1 GM in D5W 275 ML IVPB SCH (22:08)
[2018-11-23] VITALS (14 sets, daily range): BP systolic 107–200; BP diastolic 50–99
[2018-11-23] MEDS: Albuterol/Ipratropium 3ml neb HHN SCH ×4 (01:05→19:18)
[2018-11-23] MEDS: HydrALAZINE 10mg Tab GT SCH ×5 (01:34→22:01)
[2018-11-23] MEDS ORDERED: LORazepam Inj 2mg/ml 1ml IV SCH (03:00)
--- NOTE | 2018-11-23 03:15 | Progress Note ---
DATE: 11/22/2018 NOTE: POOR AUDIO SUBJECTIVE: The patient is . Currently she is unable to talk. She is persistently weeping and asking help me, help me. unable to communicate her feeling . PHYSICAL EXAMINATION: VITAL SIGNS: Blood pressure is 130/70, pulse is 63, respirations of 18, and temperature 98.2. HEENT: Eyes were normal. ENT, mucous membranes were moist and intact. NECK: Supple with no JVD without lymph nodes. Tracheostomy site is clean. LUNGS: Clear without rhonchi, rales, or wheezing. HEART: Normal sounds with regular beats. There is no tachycardia at rest. Palpation of the pacemaker generator, moderate pain. EXTREMITIES: Warm without cyanosis, clubbing, or edema. LABORATORY AND DIAGNOSTIC DATA: Hemoglobin is 8.2, hematocrit 25.7, MCV of 88, WBC of 10.8, and platelets is 128. BUN and creatinine is 47 and 1.6 respectively. Her sodium is 138, potassium 4.0, chloride 104, CO2 is 25. Sputum grew gram-negative bacilli, sensitivity is not available yet. IMPRESSION: The patient has an infected pacemaker, to be assessed today by the thoracic surgeon, pacemaker inserted, psychotic anxiety, withdrawal from benzodiazepine. For the immediate Ativan 2 mg IV push. She is on hydralazine 10 mg q.8 h, she is on piperacillin tazobactam 3.375 g IV piggyback q.6 h., and request to switch from hydromorphone 1 mg back to the Percocet 5/325 mg q.6 h. Repeat laboratory tests will be done in the a.m. Psychiatrist consult was called to assist in the management of this case. Lucas Dong M.D. DR: Charlotte JOB#: [id number] CC:
[2018-11-23 05:37] LABS: BASOPHILS % (AUTO) 0.7 % (0.0-2.0); EOSINOPHILS % (AUTO) 3.5 % (0.0-3.0); HEMATOCRIT 28.7 % (37.0-47.0); HEMOGLOBIN 9.1 G/DL (12.0-16.0); LYMPHOCYTES % (AUTO) 12.5 % (20.0-45.0); MEAN CORPUSCULAR VOLUME 90 FL (80-99); MONOCYTES % (AUTO) 4.8 % (1.0-10.0); NEUTROPHILS % (AUTO) 78.5 % (45.0-75.0); PLATELET COUNT 415 K/UL (150-450); RED BLOOD COUNT 3.19 M/UL (4.20-5.40); RED CELL DISTRIBUTION WIDTH 15.5 % (11.6-14.8); WHITE BLOOD COUNT 16.4 K/UL (4.8-10.8)
[2018-11-23] MEDS: Haloperidol 1mg tab GT SCH (05:43)
[2018-11-23] MEDS: Piperacillin/Tazobactam 3.375 GM in NS 110 ML IVPB SCH ×2 (05:43→14:55)
[2018-11-23 05:47] LABS: ANION GAP 11 mmol/L (5-15); BLOOD UREA NITROGEN 41 mg/dL (7-18); CALCIUM 9.3 MG/DL (8.5-10.1); CARBON DIOXIDE 25 MMOL/L (21-32); CHLORIDE 104 MMOL/L (98-107); CREATININE 1.6 MG/DL (0.55-1.30); POTASSIUM 3.8 MMOL/L (3.5-5.1); SODIUM 140 MMOL/L (136-145)
[2018-11-23] MEDS ORDERED: LORazepam Inj 2mg/ml 1ml IV PRN ×2 (07:15→14:00)
[2018-11-23] MEDS: Thiamine 100mg tab GT SCH (09:06)
[2018-11-23] MEDS: Metoprolol Tartrate 50mg tab GT SCH ×2 (09:06→22:01)
[2018-11-23] MEDS: Heparin 5000 units/ml inj SUBQ SCH ×2 (09:07→22:02)
[2018-11-23] MEDS ORDERED: Haloperidol 5mg/ml Inj IM SCH (12:00)
[2018-11-23] MEDS ORDERED: LORazepam Inj 2mg/ml 1ml IM SCH (12:00)
[2018-11-23] MEDS ORDERED: DiphenhydrAMINE 50mg/ml Inj IM SCH (12:00)
--- NOTE | 2018-11-23 13:29 | Infectious Diseases Prog Note ---
Assessment/Plan Assessment/Plan Assessment: Afebrile Mild leukocytosis, recurrent -u.a wbc 5-10, nit neg, leuk +1 PPM site infection (redness and pain, bacteremia) and likely pocket abscess- r/ o endocarditis/PPM lead vegetation) -2d echo: no vegetation seen -US chest: 4.6 x 3.4 x 0.9 cm hypoechoic/anechoic area overlying left chest pacemaker power pack. This could represent either a discrete fluid collection or a focal area of very edematous tissue. Infected fluid pocket also possible. Gram positive bacteremia- real bacteremia- 2ry to above -10/6 Bcx 3/4 S. epi; 11/20 Bcx NTD Probable PNA -CXR: etrocardiac consolidation, possibly pneumonia. Right basilar atelectasis -sp cx S. aureus (sensi P), ABC (I Ceftriaxone; otherwise S) Recent aspiration PNA and UTI (late September 2018) -u/a wbc 5-10, nit +, leuk +1; ucx >100k Enterobacter aerogenes (R ancef, nitro; otherwise S) -sp cx MRSA HTN anxiety chronic resp failure s/p trach s/p PEG thoracic aortic dissection s/p repair early 2017 [place] resident Plan: -Continue empiric IV Vancomycin #6 for S. epi bacteremia, PPM site infection and abscess -Continue empiric Zosyn #6/7-10 for PNA -f.u cx -Monitor CBC/CMP, temperatures -will need ABBIE to eval for endocarditis and/or PPM lead vegetation -Cards f/u - will need PPM extraction -f/u repeat Bcx x2, sp cx Thank you for this consultation. Will continue to follow along with you. Subjective Allergies: Coded Allergies: No Known Allergies (Unverified , 10/10/17) Subjective afebrile leukocytosis recurrent repeat Bcx NTD Objective Vital Signs Last 24 Hour Vital Signs Date Time Temp Pulse Resp B/P (MAP) Pulse Ox O2 Delivery O2 Flow Rate FiO2 11/23/18 09:19 88 41 100 11/23/18 09:06 84 158/70 11/23/18 09:06 84 158/70 11/23/18 09:05 158/70 11/23/18 07:15 84 49 94 Mechanical Ventilator 100 88 40 100 11/23/18 05:43 158/70 11/23/18 05:40 75 38 60 11/23/18 04:00 98.7 66 32 158/70 (99) 98 11/23/18 04:00 60 11/23/18 04:00 69 11/23/18 04:00 Mechanical Ventilator 11/23/18 02:41 73 38 60 11/23/18 01:34 151/81 11/23/18 01:15 73 37 98 Mechanical Ventilator 60 11/23/18 01:05 68 39 97 Mechanical Ventilator 60 68 39 60 11/23/18 00:00 Mechanical Ventilator 11/23/18 00:00 98.5 69 32 151/81 (104) 97 11/23/18 00:00 60 11/23/18 00:00 60 11/22/18 23:15 60 24 60 11/22/18 21:35 68 33 60 11/22/18 21:15 177/78 11/22/18 21:14 75 177/78 11/22/18 20:00 60 11/22/18 20:00 Mechanical Ventilator 11/22/18 20:00 78 11/22/18 20:00 98.2 78 28 177/78 (111) 98 11/22/18 19:27 76 32 100 Mechanical Ventilator 60 11/22/18 19:17 84 33 100 Mechanical Ventilator 60 84 33 60 11/22/18 17:19 82 30 40 11/22/18 17:05 130/70 11/22/18 16:00 Mechanical Ventilator 11/22/18 16:00 98.2 67 18 130/70 (90) 98 11/22/18 16:00 40 11/22/18 15:21 66 11/22/18 15:09 66 24 40 11/22/18 13:42 68 27 98 Mechanical Ventilator 40 68 27 40 Height (Feet): 5 Height (Inches): 5.00 Weight (Pounds): 145 Objective HEENT: Eyes were normal. Pupils were round, equal, and reactive to light. Sclerae were white. Conjunctivae were pink. ENT, mucous membranes were not dehydrated. NECK: Supple. No lymphadenopathy. LUNGS: Clear. HEART: PMI was in fifth left intercostal space in midclavicular line. There was normal S1 and normal S2. There was no murmur. No arrhythmia. No S3. No S4. No pericardial rub. ABDOMEN: Soft, nontender without organomegaly. There were no masses palpable. Normal bowel sounds without bruits. There was no guarding. No rebound tenderness. No CVA tenderness. EXTREMITIES: No cyanosis, clubbing, and no edema. Extremities were warm. Microbiology Date/Time Source Procedure Growth Status 11/20/18 16:25 Blood Blood Culture - Preliminary NO GROWTH AFTER 48 HOURS Resulted 11/20/18 16:19 Blood Blood Culture - Preliminary NO GROWTH AFTER 48 HOURS Resulted 11/20/18 18:30 Sputum Induced Gram Stain - Final Resulted 11/20/18 18:30 Sputum Culture - Preliminary Acinetobacter Baumannii Complx Staphylococcus Aureus Resulted 11/20/18 16:10 Urine,Clean Catch Urine Culture - Final NO GROWTH AFTER 48 HOURS Complete Laboratory Tests Test 11/22/18 17:00 11/23/18 03:20 11/23/18 11:54 Stool Occult Blood Negative (NEGATIVE) White Blood Count 16.4 K/UL (4.8-10.8) H Red Blood Count 3.19 M/UL (4.20-5.40) L Hemoglobin 9.1 G/DL (12.0-16.0) L Hematocrit 28.7 % (37.0-47.0) L Mean Corpuscular Volume 90 FL (80-99) Mean Corpuscular Hemoglobin 28.4 PG (27.0-31.0) Mean Corpuscular Hemoglobin Concent 31.6 G/DL (32.0-36.0) L Red Cell Distribution Width 15.5 % (11.6-14.8) H Platelet Count 415 K/UL (150-450) Mean Platelet Volume 4.9 FL (6.5-10.1) L Neutrophils (%) (Auto) 78.5 % (45.0-75.0) H Lymphocytes (%) (Auto) 12.5 % (20.0-45.0) L Monocytes (%) (Auto) 4.8 % (1.0-10.0) Eosinophils (%) (Auto) 3.5 % (0.0-3.0) H Basophils (%) (Auto) 0.7 % (0.0-2.0) Sodium Level 140 MMOL/L (136-145) Potassium Level 3.8 MMOL/L (3.5-5.1) Chloride Level 104 MMOL/L (98-107) Carbon Dioxide Level 25 MMOL/L (21-32) Anion Gap 11 mmol/L (5-15) Blood Urea Nitrogen 41 mg/dL (7-18) H Creatinine 1.6 MG/DL (0.55-1.30) H Estimat Glomerular Filtration Rate 34.7 mL/min (>60) Glucose Level 101 MG/DL (74-106) Calcium Level 9.3 MG/DL (8.5-10.1) Arterial Blood pH 7.198 (7.350-7.450) Arterial Blood Partial Pressure CO2 49.7 mmHg (35.0-45.0) H Arterial Blood Partial Pressure O2 45.3 mmHg (75.0-100.0) Arterial Blood HCO3 18.9 mmol/L (22.0-26.0) L Arterial Blood Oxygen Saturation 64.5 % (95-100) *L Arterial Blood Base Excess -8.8 (-2-2) L Rojas Test Positive Current Medications Medications (Trade) Dose Ordered Sig/Penny Route PRN Reason Start Time Stop Time Status Last Admin Dose Admin Acetaminophen (Tylenol) 650 mg Q4H PRN ORAL Mild Pain/Temp > 100.5 11/19/18 04:15 12/19/18 04:14 11/22/18 19:32 Albuterol/ Ipratropium (Albuterol/ Ipratropium) 3 ml Q6HRT HHN 11/19/18 07:00 11/24/18 06:59 11/23/18 13:24 Amlodipine Besylate (Norvasc) 10 mg DAILY GT 11/19/18 09:00 12/19/18 08:59 11/23/18 09:06 Diphenhydramine HCl (Benadryl) 25 mg Q6H PRN IVP Itching 11/21/18 10:45 12/21/18 10:44 11/22/18 19:15 Fentanyl Citrate 1000 mcg/Sodium Chloride 100 ml @ 0 mls/hr Q24H IV 11/23/18 13:15 11/30/18 13:14 UNV Haloperidol (Haldol) 1 mg EVERY 8 HOURS GT 11/19/18 06:00 12/19/18 05:59 11/23/18 05:43 Heparin Sodium (Porcine) (Heparin 5000 units/ml) 5,000 units EVERY 12 HOURS SUBQ 11/19/18 09:00 12/19/18 08:59 11/23/18 09:07 Hydralazine HCl (Apresoline) 10 mg EVERY 4 HOURS GT 11/19/18 01:00 12/19/18 00:59 11/23/18 09:05 Ketorolac Tromethamine (Toradol 30mg) 30 mg Q6H PRN IV For Pain 4-10 11/20/18 18:00 11/25/18 17:59 11/21/18 15:26 Lansoprazole (Prevacid) 30 mg DAILY GT 11/19/18 09:00 12/19/18 08:59 11/23/18 09:05 Lorazepam (Ativan 2mg/ml 1ml) 1 mg Q4H PRN IV Agitation 11/23/18 07:15 11/30/18 07:14 11/23/18 09:00 Metoprolol Tartrate (Lopressor) 50 mg EVERY 12 HOURS GT 11/19/18 09:00 12/19/18 08:59 11/23/18 09:06 Ondansetron HCl (Zofran) 4 mg Q8H PRN IM Nausea & Vomiting 11/19/18 01:00 12/19/18 00:59 Oxycodone/ Acetaminophen (Percocet 10/325) 1 tab Q4H PRN ORAL Severe Pain (Pain Scale 7-10) 11/22/18 20:30 11/29/18 20:29 11/23/18 01:35 Piperacillin Sod/ Tazobactam Sod 3.375 gm/Sodium Chloride 110 ml @ 27.5 mls/hr EVERY 8 HOURS IVPB 11/19/18 06:00 11/24/18 05:59 11/23/18 05:43 Thiamine HCl (Vitamin B1) 100 mg DAILY GT 11/19/18 09:00 12/19/18 08:59 11/23/18 09:06 Vancomycin HCl 1 gm/Dextrose 275 ml @ 183.708 mls/hr Q24H IVPB 11/19/18 22:00 11/24/18 21:59 11/22/18 22:08 Doreen Nino M.D. Nov 23, 2018 13:29
--- NOTE | 2018-11-23 13:43 | Diagnostic Imaging Report ---
Indication: Dyspnea Comparison: 11/18/2018 A single view chest radiograph was obtained. Findings: There is extensive airspace consolidation involving the mid lung cervantes bilaterally suspicious for pneumonia. There is relative sparing of the lung bases and apices. The heart is enlarged. Tracheostomy and left-sided pacemaker, sternotomy again noted. IMPRESSION: Extensive bilateral infiltrate suspicious for pneumonia
[2018-11-23] MEDS ORDERED: Haloperidol 1mg tab GT SCH (14:00)
[2018-11-23] MEDS ORDERED: Ketorolac 30mg Inj IV PRN (14:00)
--- NOTE | 2018-11-23 14:02 | Cardiac Electrophysiology PN ---
Assessment/Plan Problem List: (1) Pacemaker (2) Acute encephalopathy (3) Sepsis (4) Acute renal failure (5) Encephalopathy (6) Tracheostomy in place (7) Feeding by G-tube (8) Bacteremia Status: not improved, deteriorating Status Narrative Mrs Gillis is a 48 yo woman with hx of thoracic aortic dissection - repair (appx 1 yr ago) pneumonia, chronic respiratory failure, on vent, s/p g tube and s/p pacemaker placement appx one month ago. She was adm w/ pain and swelling at pacer pocket site, and has s epi bacteremia. Sputum w/ acinetobacter. Device is felt to be infected. ECHO has shown no apparent valve vegetations, but moderate AI. ABBIE has not been done yet. She has been started on iv antibiotics and is followed by ID. Pt has been transferred to ICU due to deterioration in respiratory status. Desat on vent to 70s - FI02 has been increased to 100%. CXR pending. ? worsening pneumonia/ sepsis, ? chf/ vol overload, ? PE Assessment/Plan Check CXR. Fullowup cultures and adjust abx per ID. Vent settings to be adjusted per Dr Ulysses kim DVT / PE unlikely, as pt has been on sc heparin. Removal of pacing leads/generator is planned for Monday, depending on pt's hospital course. The pacing system is likely infected, and the cause of her bacteremia. The pacemaker was interrogated yesterday, and she is not pacemaker- dependent. Subjective ROS Limited/Unobtainable: Yes Subjective Cardiac EP Events noted. Pt transferred to ICU, due to respiratory deterioration/ desat on vent Pt currently awake, agitated Objective Last 24 Hour Vital Signs Date Time Temp Pulse Resp B/P (MAP) Pulse Ox O2 Delivery O2 Flow Rate FiO2 11/23/18 12:00 96.7 63 40 134/66 (88) 100 11/23/18 09:19 88 41 100 11/23/18 09:06 84 158/70 11/23/18 09:06 84 158/70 11/23/18 09:05 158/70 11/23/18 08:00 96.1 85 30 200/99 (132) 100 11/23/18 07:15 84 49 94 Mechanical Ventilator 100 88 40 100 11/23/18 05:43 158/70 11/23/18 05:40 75 38 60 11/23/18 04:00 98.7 66 32 158/70 (99) 98 11/23/18 04:00 60 11/23/18 04:00 69 11/23/18 04:00 Mechanical Ventilator 11/23/18 02:41 73 38 60 11/23/18 01:34 151/81 11/23/18 01:15 73 37 98 Mechanical Ventilator 60 11/23/18 01:05 68 39 97 Mechanical Ventilator 60 68 39 60 11/23/18 00:00 Mechanical Ventilator 11/23/18 00:00 98.5 69 32 151/81 (104) 97 11/23/18 00:00 60 11/23/18 00:00 60 11/22/18 23:15 60 24 60 11/22/18 21:35 68 33 60 11/22/18 21:15 177/78 11/22/18 21:14 75 177/78 11/22/18 20:00 60 11/22/18 20:00 Mechanical Ventilator 11/22/18 20:00 78 11/22/18 20:00 98.2 78 28 177/78 (111) 98 11/22/18 19:27 76 32 100 Mechanical Ventilator 60 11/22/18 19:17 84 33 100 Mechanical Ventilator 60 84 33 60 11/22/18 17:19 82 30 40 11/22/18 17:05 130/70 11/22/18 16:00 Mechanical Ventilator 11/22/18 16:00 98.2 67 18 130/70 (90) 98 11/22/18 16:00 40 11/22/18 15:21 66 11/22/18 15:09 66 24 40 General Appearance: moderate distress, on vent EENT: PERRL/EOMI Neck: other - trach Cardiovascular: normal rate, regular rhythm, no gallop/murmur Respiratory/Chest: other - Chest - tenderness over pacer pocket site, no erythema, mild edema. Lungs - fairly clear bilat Abdomen: normal bowel sounds, non tender, soft Extremities: no swelling Intake and Output 11/22/18 11/23/18 18:59 06:59 Intake Total 690.0 ml 965.000 ml Balance 690.0 ml 965.000 ml Intake Free Water 100 ml 100 ml IV Total 110.0 ml 385.000 ml Tube Feeding 480 ml 480 ml # Voids 4 2 # Bowel Movements 2 Laboratory Tests Test 11/22/18 17:00 11/23/18 03:20 11/23/18 11:54 Stool Occult Blood Negative (NEGATIVE) White Blood Count 16.4 K/UL (4.8-10.8) H Red Blood Count 3.19 M/UL (4.20-5.40) L Hemoglobin 9.1 G/DL (12.0-16.0) L Hematocrit 28.7 % (37.0-47.0) L Mean Corpuscular Volume 90 FL (80-99) Mean Corpuscular Hemoglobin 28.4 PG (27.0-31.0) Mean Corpuscular Hemoglobin Concent 31.6 G/DL (32.0-36.0) L Red Cell Distribution Width 15.5 % (11.6-14.8) H Platelet Count 415 K/UL (150-450) Mean Platelet Volume 4.9 FL (6.5-10.1) L Neutrophils (%) (Auto) 78.5 % (45.0-75.0) H Lymphocytes (%) (Auto) 12.5 % (20.0-45.0) L Monocytes (%) (Auto) 4.8 % (1.0-10.0) Eosinophils (%) (Auto) 3.5 % (0.0-3.0) H Basophils (%) (Auto) 0.7 % (0.0-2.0) Sodium Level 140 MMOL/L (136-145) Potassium Level 3.8 MMOL/L (3.5-5.1) Chloride Level 104 MMOL/L (98-107) Carbon Dioxide Level 25 MMOL/L (21-32) Anion Gap 11 mmol/L (5-15) Blood Urea Nitrogen 41 mg/dL (7-18) H Creatinine 1.6 MG/DL (0.55-1.30) H Estimat Glomerular Filtration Rate 34.7 mL/min (>60) Glucose Level 101 MG/DL (74-106) Calcium Level 9.3 MG/DL (8.5-10.1) Arterial Blood pH 7.198 (7.350-7.450) Arterial Blood Partial Pressure CO2 49.7 mmHg (35.0-45.0) H Arterial Blood Partial Pressure O2 45.3 mmHg (75.0-100.0) Arterial Blood HCO3 18.9 mmol/L (22.0-26.0) L Arterial Blood Oxygen Saturation 64.5 % (95-100) *L Arterial Blood Base Excess -8.8 (-2-2) L Rojas Test Positive Microbiology Date/Time Source Procedure Growth Status 11/20/18 16:25 Blood Blood Culture - Preliminary NO GROWTH AFTER 48 HOURS Resulted 11/20/18 16:19 Blood Blood Culture - Preliminary NO GROWTH AFTER 48 HOURS Resulted 11/20/18 18:30 Sputum Induced Gram Stain - Final Resulted 11/20/18 18:30 Sputum Culture - Preliminary Acinetobacter Baumannii Complx Staphylococcus Aureus Resulted 11/20/18 16:10 Urine,Clean Catch Urine Culture - Final NO GROWTH AFTER 48 HOURS Complete Lani Lyle MD Nov 23, 2018 14:02
[2018-11-23] MEDS: fentaNYL Citrate 2500mcg in NS 250ml IV SCH (17:42)
--- NOTE | 2018-11-23 19:33 | Cardiology Progress Note ---
Assessment/Plan Assessment/Plan pacemaker pocket infection bacteremia staph epi HTN anxiety chronic resp failure s/p trach s/p PEG thoracic aortic dissection s/p repair early 2018 [facility] resident bilateral infiltrates repeat cx so far neg 11/23 i personally reviewed echo no vegetation noted there is AR n TR nto sig to have pacer explanted by dr fleming dependent nto felt to be pacer dependent keep on iv abx sedated the skin around the pacer not appear to be sig redness cxr report noted bilat infiltrates now saturating fine on sedation patricia possibly on Subjective ROS Limited/Unobtainable: Yes Subjective on vent in icu sedated Objective Last 24 Hour Vital Signs Date Time Temp Pulse Resp B/P (MAP) Pulse Ox O2 Delivery O2 Flow Rate FiO2 11/23/18 19:18 60 20 92 Mechanical Ventilator 100 60 20 100 11/23/18 17:47 138/75 11/23/18 17:42 17 100 11/23/18 16:45 62 20 100 11/23/18 16:00 Mechanical Ventilator 11/23/18 14:46 67 22 100 11/23/18 14:27 17 100 11/23/18 13:24 63 29 90 Mechanical Ventilator 100 69 29 100 11/23/18 12:00 100 11/23/18 12:00 68 11/23/18 12:00 96.7 63 40 134/66 (88) 100 11/23/18 12:00 Mechanical Ventilator 11/23/18 11:14 85 47 100 11/23/18 09:19 88 41 100 11/23/18 09:06 84 158/70 11/23/18 09:06 84 158/70 11/23/18 09:05 158/70 11/23/18 08:00 100 11/23/18 08:00 96.1 85 30 200/99 (132) 100 11/23/18 08:00 Mechanical Ventilator 11/23/18 08:00 82 11/23/18 07:15 84 49 94 Mechanical Ventilator 100 88 40 100 11/23/18 05:43 158/70 11/23/18 05:40 75 38 60 11/23/18 04:00 98.7 66 32 158/70 (99) 98 11/23/18 04:00 60 11/23/18 04:00 69 11/23/18 04:00 Mechanical Ventilator 11/23/18 02:41 73 38 60 11/23/18 01:34 151/81 11/23/18 01:15 73 37 98 Mechanical Ventilator 60 11/23/18 01:05 68 39 97 Mechanical Ventilator 60 68 39 60 11/23/18 00:00 Mechanical Ventilator 11/23/18 00:00 98.5 69 32 151/81 (104) 97 11/23/18 00:00 60 11/23/18 00:00 60 11/22/18 23:15 60 24 60 11/22/18 21:35 68 33 60 11/22/18 21:15 177/78 11/22/18 21:14 75 177/78 11/22/18 20:00 60 11/22/18 20:00 Mechanical Ventilator 11/22/18 20:00 78 11/22/18 20:00 98.2 78 28 177/78 (111) 98 General Appearance: no apparent distress, on vent, patient on isolation Neck: no JVD Cardiovascular: normal rate Respiratory/Chest: rhonchi - bilaterally Abdomen: normal bowel sounds, non tender, soft Extremities: no swelling Intake and Output 11/22/18 11/23/18 19:00 07:00 Intake Total 690.0 ml 992.500 ml Balance 690.0 ml 992.500 ml Intake Free Water 100 ml 100 ml IV Total 110.0 ml 412.500 ml Tube Feeding 480 ml 480 ml # Voids 4 2 # Bowel Movements 2 Laboratory Tests Test 11/23/18 03:20 11/23/18 11:54 White Blood Count 16.4 K/UL (4.8-10.8) H Red Blood Count 3.19 M/UL (4.20-5.40) L Hemoglobin 9.1 G/DL (12.0-16.0) L Hematocrit 28.7 % (37.0-47.0) L Mean Corpuscular Volume 90 FL (80-99) Mean Corpuscular Hemoglobin 28.4 PG (27.0-31.0) Mean Corpuscular Hemoglobin Concent 31.6 G/DL (32.0-36.0) L Red Cell Distribution Width 15.5 % (11.6-14.8) H Platelet Count 415 K/UL (150-450) Mean Platelet Volume 4.9 FL (6.5-10.1) L Neutrophils (%) (Auto) 78.5 % (45.0-75.0) H Lymphocytes (%) (Auto) 12.5 % (20.0-45.0) L Monocytes (%) (Auto) 4.8 % (1.0-10.0) Eosinophils (%) (Auto) 3.5 % (0.0-3.0) H Basophils (%) (Auto) 0.7 % (0.0-2.0) Sodium Level 140 MMOL/L (136-145) Potassium Level 3.8 MMOL/L (3.5-5.1) Chloride Level 104 MMOL/L (98-107) Carbon Dioxide Level 25 MMOL/L (21-32) Anion Gap 11 mmol/L (5-15) Blood Urea Nitrogen 41 mg/dL (7-18) H Creatinine 1.6 MG/DL (0.55-1.30) H Estimat Glomerular Filtration Rate 34.7 mL/min (>60) Glucose Level 101 MG/DL (74-106) Calcium Level 9.3 MG/DL (8.5-10.1) Arterial Blood pH 7.198 (7.350-7.450) Arterial Blood Partial Pressure CO2 49.7 mmHg (35.0-45.0) H Arterial Blood Partial Pressure O2 45.3 mmHg (75.0-100.0) Arterial Blood HCO3 18.9 mmol/L (22.0-26.0) L Arterial Blood Oxygen Saturation 64.5 % (95-100) *L Arterial Blood Base Excess -8.8 (-2-2) L Rojas Test Positive Carlos Rooney MD Nov 23, 2018 19:32
--- NOTE | 2018-11-23 21:53 | Pulmonolgy Critical Care Note ---
Critical Care - Asmt/Plan Problems: (1) Chronic respiratory failure (2) Chest pain (3) JAVIER (acute kidney injury) (4) Anemia (5) Ventilator dependence (6) S/P aortic dissection repair (7) Tracheostomy in place (8) Feeding by G-tube (9) Bacteremia Respiratory: monitor respiratory rate, adjust FIO2, CXR Cardiac: d/c hall monitor Renal: F/U I&O, check electrolytes Infectious Disease: check cultures, continue antibiotics Gastrointestinal: continue feedings/current rate Endocrine: monitor blood sugar, check HgA1C Hematologic: transfuse if hgb<8.5 Neurologic: PRN Ativan, keep patient comfortable Prophylaxis: Heparin Time Spent (Minutes): 40 Notes Reviewed: renal Discussed with: nurses, consultants, correctional case records supervisorright of way manager - Objective Last 24 Hour Vital Signs Date Time Temp Pulse Resp B/P (MAP) Pulse Ox O2 Delivery O2 Flow Rate FiO2 11/23/18 21:00 20 Mechanical Ventilator 100 11/23/18 20:48 60 20 100 11/23/18 20:00 20 Mechanical Ventilator 100 11/23/18 19:30 98.8 11/23/18 19:18 60 20 92 Mechanical Ventilator 100 60 20 100 11/23/18 19:18 60 20 92 Mechanical Ventilator 100 11/23/18 19:00 20 Mechanical Ventilator 100 11/23/18 18:00 85 20 134/66 (88) 93 11/23/18 17:47 138/75 11/23/18 17:42 17 100 11/23/18 17:00 62 22 134/66 (88) 95 11/23/18 16:45 62 20 100 11/23/18 16:00 Mechanical Ventilator 11/23/18 16:00 98.8 61 26 134/66 (88) 94 11/23/18 16:00 Mechanical Ventilator 11/23/18 16:00 62 11/23/18 15:00 60 28 134/66 (88) 87 11/23/18 14:46 67 22 100 11/23/18 14:27 17 100 11/23/18 14:00 97.6 60 30 134/66 (88) 62 11/23/18 13:24 63 29 90 Mechanical Ventilator 100 69 29 100 11/23/18 12:00 100 11/23/18 12:00 68 11/23/18 12:00 96.7 63 40 134/66 (88) 100 11/23/18 12:00 Mechanical Ventilator 11/23/18 11:14 85 47 100 11/23/18 09:19 88 41 100 11/23/18 09:06 84 158/70 11/23/18 09:06 84 158/70 11/23/18 09:05 158/70 11/23/18 08:00 100 11/23/18 08:00 96.1 85 30 200/99 (132) 100 11/23/18 08:00 Mechanical Ventilator 11/23/18 08:00 82 11/23/18 07:15 84 49 94 Mechanical Ventilator 100 88 40 100 11/23/18 05:43 158/70 11/23/18 05:40 75 38 60 11/23/18 04:00 98.7 66 32 158/70 (99) 98 11/23/18 04:00 60 11/23/18 04:00 69 11/23/18 04:00 Mechanical Ventilator 11/23/18 02:41 73 38 60 11/23/18 01:34 151/81 11/23/18 01:15 73 37 98 Mechanical Ventilator 60 11/23/18 01:05 68 39 97 Mechanical Ventilator 60 68 39 60 11/23/18 00:00 Mechanical Ventilator 11/23/18 00:00 98.5 69 32 151/81 (104) 97 11/23/18 00:00 60 11/23/18 00:00 60 11/22/18 23:15 60 24 60 Status: sedated Condition: critical HEENT: atraumatic Neck: full ROM Heart: HR/BP stable Abdomen: soft, non-tender, feeding tube Extremities: no C/C/E, edema Accucheck: 218 Critical Care - Subjective ROS Limited/Unobtainable: Yes Condition: critical FI02: 100 Vent Support Breath Rate: 20 Vent Support Mode: AC Vent Tidal Volume: 600 Sputum Amount: Scant PEEP: 7.0 PIP: 31 Tube Feeding Amount: 40 I&O: Intake and Output 11/22/18 11/23/18 19:00 07:00 Intake Total 690.0 ml 992.500 ml Balance 690.0 ml 992.500 ml Intake Free Water 100 ml 100 ml IV Total 110.0 ml 412.500 ml Tube Feeding 480 ml 480 ml # Voids 4 2 # Bowel Movements 2 CXR: extensive infiltrate Zarrabi,Mirali MD Nov 23, 2018 21:53
[2018-11-23] MEDS ORDERED: Vancomycin 1 GM in D5W 275 ML IVPB SCH (22:00)
--- NOTE | 2018-11-23 23:45 | Progress Note ---
DATE: 11/23/2018 SUBJECTIVE: The patient's condition deteriorated today, O2 saturation dropped to 50. She was transferred to the ICU. Her condition was attributed to her emotional status and uncontrolled anxiety disorder. She was started on . The patient fell asleep and O2 saturation is now 100%. PHYSICAL EXAMINATION: VITAL SIGNS: Blood pressure is 134/66, pulse is 68, respirations 40 per minute and now it is 17, temperature 96.7, and FiO2 100. HEENT: Eyes were normal. ENT, mucous membranes were moist and intact. NECK: Supple with no JVD without lymph nodes. Tracheostomy site is clean. LUNGS: Clear without rhonchi, rales, or wheezing. Secretions are small, thick, and whitish. HEART: Normal sounds with regular beats. There is no S3, S4, or pericardial rub. ABDOMEN: Soft and nontender with normal bowel sounds. EXTREMITIES: Warm without cyanosis, clubbing, or edema. LABORATORY AND DIAGNOSTIC DATA: Hemoglobin is 9.1, hematocrit 28.7, MCV of 90, WBC of 16.4, and platelets of 115. Her BUN and creatinine is 41 and 1.6 respectively. It was 47 and 1.6 yesterday. Her sodium is 140, potassium 3.9, chloride 104, CO2 was 25, her calcium is 9.3. Blood gases today this morning was 7.19, pCO2 49, pO2 was 45, bicarb was 18, O2 saturation was 64, base excess was -8.8. Sputum culture grew Acinetobacter baumannii and Staphylococcus aureus sensitive to multiple antibiotics. IMPRESSION: The patient is septic, pacemaker, latest blood culture negative from November 20, 2018. Urine culture from November 20, 2018 was negative as well. Her blood culture from November 18, 2018 grew Staph epidermidis. Chest x-ray today, extended bilateral infiltrate, both lungs. PLAN: The patient is now on vancomycin 1 g IV piggyback every 24 hours. She is on drip up to 50 mL per hour with 2500 mcg. Repeat laboratory tests will be done in the a.m. Lucas Dong M.D. DR: Charlotte JOB#: [id number] CC:
[2018-11-24] VITALS (29 sets, daily range): BP systolic 102–159; BP diastolic 50–110
[2018-11-24] MEDS: fentaNYL Citrate 2500mcg in NS 250ml IV SCH ×4 (00:02→19:22)
[2018-11-24] MEDS: Piperacillin/Tazobactam 3.375 GM in NS 110 ML IVPB SCH ×3 (00:02→16:26)
[2018-11-24] MEDS: HydrALAZINE 10mg Tab GT SCH ×6 (01:00→21:48)
[2018-11-24] MEDS: Albuterol/Ipratropium 3ml neb HHN SCH (01:11)
--- NOTE | 2018-11-24 05:15 | Consultation ---
DATE OF CONSULTATION: 11/23/2018 CONSULTING PHYSICIAN: Shanda Linares M.D. HISTORY OF PRESENT ILLNESS: The patient is a 48-year-old female with a history of multiple medical comorbidities, who has been admitted to the hospital because of The patient is presenting with anxiety, severe agitation, cocktail was ordered, however was not administered. The patient was transferred to intensive care unit and was placed on fentanyl patch. When I arrived, the patient was severely agitated. I also contacted Dr. Arora and asked to hold the cocktail. Unable to assess the patient as he has poor cognition. PAST PSYCHIATRIC HISTORY: Unknown. PAST MEDICAL HISTORY: As above. ALLERGIES: No known drug allergies. SUBSTANCE ABUSE HISTORY: No known history of illicit drug use or alcohol. MENTAL STATUS EXAMINATION: The patient is alert, disoriented, not able to be engaged during the evaluation. Mood is agitated. Affect is flat. Thought process, there is a paucity of thought content. Thought content, no suicidal or homicidal ideation. Cognition is impaired. Insight and judgment are impaired. PLAN: 1. Discontinue the Ativan. 2. Start the patient on Haldol 5 IM p.r.n. to manage the agitation and decrease sedation. 3. Continue to follow and readjust the medications. Shanda Linares M.D. DR: CANDICE JOB#: [id number] CC: JAIR
[2018-11-24] MEDS ORDERED: LORazepam Inj 2mg/ml 1ml IV PRN (06:15)
[2018-11-24 08:03] LABS: HEMATOCRIT 23.2 % (37.0-47.0); HEMOGLOBIN 7.4 G/DL (12.0-16.0); MEAN CORPUSCULAR VOLUME 89 FL (80-99); PLATELET COUNT 370 K/UL (150-450); RED BLOOD COUNT 2.61 M/UL (4.20-5.40); RED CELL DISTRIBUTION WIDTH 15.6 % (11.6-14.8)
[2018-11-24] MEDS: Metoprolol Tartrate 50mg tab GT SCH ×2 (08:17→21:49)
[2018-11-24] MEDS: Thiamine 100mg tab GT SCH (08:38)
[2018-11-24] MEDS: Heparin 5000 units/ml inj SUBQ SCH ×2 (08:39→20:08)
--- NOTE | 2018-11-24 08:56 | Diagnostic Imaging Report ---
EXAM: XR Chest, 1 View CLINICAL HISTORY: DYSPNEA TECHNIQUE: Frontal view of the chest. COMPARISON: Chest x-rays dated 11 23 18 FINDINGS: Lungs: No significant interval change in the diffuse patchy opacities in bilateral lungs, concerning for pneumonia versus pulmonary edema. Pleural space: Unremarkable. The costophrenic angles are sharp. No visible pneumothorax. Heart: Cardiomegaly. Mediastinum: Unremarkable. Bones joints: Status post median sternotomy. Tubes, lines and devices: Cardiac pacer in the left chest wall with the lead tips in the right atrium and right ventricle regions. Telemetry leads overlie the thorax. Stable positioning of the tracheostomy tube. IMPRESSION: 1. No significant interval change in the diffuse patchy opacities in bilateral lungs, concerning for pneumonia versus pulmonary edema. 2. Cardiomegaly.
[2018-11-24 09:14] LABS: ALANINE AMINOTRANSFERASE 61 U/L (12-78); ALBUMIN 2.6 G/DL (3.4-5.0); ALBUMIN/GLOBULIN RATIO 0.6 (1.0-2.7); ALKALINE PHOSPHATASE 846 U/L (46-116); ANION GAP 10 mmol/L (5-15); ASPARTATE AMINO TRANSFERASE 54 U/L (15-37); BILIRUBIN,TOTAL 0.7 MG/DL (0.2-1.0); BLOOD UREA NITROGEN 54 mg/dL (7-18); CALCIUM 8.6 MG/DL (8.5-10.1); CARBON DIOXIDE 24 MMOL/L (21-32); CHLORIDE 106 MMOL/L (98-107); CREATININE 2.1 MG/DL (0.55-1.30); PHOSPHORUS 3.4 MG/DL (2.5-4.9); POTASSIUM 4.4 MMOL/L (3.5-5.1); SODIUM 140 MMOL/L (136-145)
[2018-11-24] MEDS: LORazepam Inj 2mg/ml 1ml IV PRN ×3 (09:32→21:49)
--- NOTE | 2018-11-24 10:33 | Pulmonolgy Critical Care Note ---
Critical Care - Asmt/Plan Assessment/Plan: ASSESSMENT acute hypoxemic respiratory failure on chronic respiratory failure VDRF, trach status sepsis with Staph epidermidis bacteremia pacemaker site infection , likely pocket abscess, r/o endocarditis/PPM lead vegetation probably PNA JAVIER Dysphagia, feeding by G tube HTN Anemia hx of thoracic aortic aneurysm repair 2018 PLAN OF CARE ICU Fentanyl gtt ventilator support , trach care, ABG noted, small improvement, still hypoxic venous Duplex BLE stat fup with CXR and ABG in am asp precautions abx as per ID, repeated BCX negative ECHO with pEF, grade 2 diastolic dysfunction and evidence of mild pulm HTN no evidence of vegetation US of the chest 4.6 x 3.4 x 0.9 cm hypoechoic/anechoic area overlying left chest pacemaker power pack. This could represent either a discrete fluid collection or a focal area of very edematous tissue. Infected fluid pocket also possible. cardio and cardio EP follow Removal of pacing leads/generator planned for Monday, DVT/GI prophylaxis BP management with current regimen monitor renal parameters, lytes, correct lytes prn, avoid nephrotoxics GT feeding, monitor tolerance monitor HH with goal to keep Hgb above 7, stool OB negative supportive care case discussed and evaluated by supervising physician Critical Care - Objective Last 24 Hour Vital Signs Date Time Temp Pulse Resp B/P (MAP) Pulse Ox O2 Delivery O2 Flow Rate FiO2 11/24/18 10:00 20 Mechanical Ventilator 100 11/24/18 09:45 20 Mechanical Ventilator 100 11/24/18 09:30 20 Mechanical Ventilator 100 11/24/18 09:09 60 20 100 11/24/18 09:00 20 Mechanical Ventilator 100 11/24/18 08:17 60 106/50 11/24/18 08:17 106/50 11/24/18 08:17 60 106/50 11/24/18 08:00 99.0 60 20 106/50 (68) 95 11/24/18 08:00 Mechanical Ventilator 11/24/18 08:00 20 Mechanical Ventilator 100 11/24/18 07:05 62 20 100 11/24/18 07:00 20 Mechanical Ventilator 100 11/24/18 06:31 99.0 11/24/18 06:01 20 Mechanical Ventilator 45.0 100 11/24/18 06:00 20 Mechanical Ventilator 100 11/24/18 05:29 101/51 11/24/18 05:22 62 21 100 11/24/18 05:00 20 Mechanical Ventilator 100 11/24/18 04:00 60 11/24/18 04:00 16 Mechanical Ventilator 100 11/24/18 04:00 Mechanical Ventilator 11/24/18 03:00 60 20 105/52 (69) 94 11/24/18 03:00 16 Mechanical Ventilator 100 11/24/18 02:37 60 20 100 11/24/18 02:00 16 Mechanical Ventilator 100 11/24/18 02:00 60 20 108/64 (79) 94 11/24/18 01:11 60 20 95 Mechanical Ventilator 100 60 20 100 11/24/18 01:00 60 20 114/56 (75) 94 11/24/18 01:00 16 Mechanical Ventilator 100 11/24/18 01:00 105/56 11/24/18 00:02 20 Mechanical Ventilator 100 11/24/18 00:00 99.0 60 20 114/55 (74) 94 11/24/18 00:00 60 11/24/18 00:00 16 Mechanical Ventilator 100 11/24/18 00:00 Mechanical Ventilator 11/23/18 23:56 60 20 100 11/23/18 23:00 60 20 107/50 (69) 94 11/23/18 23:00 20 Mechanical Ventilator 100 11/23/18 22:01 67 134/66 11/23/18 22:01 134/66 11/23/18 22:00 60 20 132/61 (84) 94 11/23/18 22:00 20 Mechanical Ventilator 100 11/23/18 21:00 65 20 130/69 (89) 94 11/23/18 21:00 20 Mechanical Ventilator 100 11/23/18 20:48 60 20 100 11/23/18 20:00 99.6 60 20 129/59 (82) 93 11/23/18 20:00 62 11/23/18 20:00 20 Mechanical Ventilator 100 11/23/18 20:00 Mechanical Ventilator 11/23/18 19:18 60 20 92 Mechanical Ventilator 100 60 20 100 11/23/18 19:18 60 20 92 Mechanical Ventilator 100 11/23/18 19:00 60 20 122/56 (78) 93 11/23/18 19:00 20 Mechanical Ventilator 100 11/23/18 18:00 85 20 134/66 (88) 93 11/23/18 17:47 138/75 10/11/19 17:42 17 100 11/23/18 17:00 62 22 134/66 (88) 95 11/23/18 16:45 62 20 100 11/23/18 16:00 Mechanical Ventilator 11/23/18 16:00 98.8 61 26 134/66 (88) 94 11/23/18 16:00 Mechanical Ventilator 11/23/18 16:00 62 11/23/18 15:00 60 28 134/66 (88) 87 11/23/18 14:46 67 22 100 11/23/18 14:27 17 100 11/23/18 14:00 97.6 60 30 134/66 (88) 62 11/23/18 13:24 63 29 90 Mechanical Ventilator 100 69 29 100 11/23/18 12:00 100 11/23/18 12:00 68 11/23/18 12:00 96.7 63 40 134/66 (88) 100 11/23/18 12:00 Mechanical Ventilator 11/23/18 11:14 85 47 100 Status: sedated Condition: critical, other - on vent AC 600-20-100% PEEP 7 HEENT: atraumatic, normocephalic, other - on Vent Neck: trach - Shiley #6, secretions scant, thick, velasco color Lungs: rhonchi - few scattered , other - left sided chest with pacemaker, erythema, edema, TTP Heart: HR/BP stable Abdomen: soft, non-tender, feeding tube - G tube , tolerating feeding Extremities: no C/C/E, other - multiple tattoos Accucheck: 218 Critical Care - Subjective ROS Limited/Unobtainable: Yes Interval Events: leukocytosis persist, no fevers HH dropped creat up again ABG better after PEEP up to 7 Condition: critical EKG Rhythm: Sinus Rhythm FI02: 100 Vent Support Breath Rate: 20 Vent Support Mode: AC Vent Tidal Volume: 600 Sputum Amount: Scant PEEP: 7.0 PIP: 28 Drips: Fentanyl gtt 400 mcg/hr Tube Feeding Amount: 40 I&O: Intake and Output 11/23/18 11/24/18 19:00 07:00 Intake Total 484.5 ml 1465.000 ml Balance 484.5 ml 1465.000 ml Intake Free Water 60 ml 100 ml IV Total 184.5 ml 865.000 ml Tube Feeding 240 ml 440 ml Other 60 ml # Voids 1 CXR: CXR 11/24- 1. No significant interval change in the diffuse patchy opacities in bilateral lungs, concerning for pneumonia versus pulmonary edema. 2. Cardiomegaly. Yara Castro NP Nov 24, 2018 10:33
[2018-11-24] MEDS ORDERED: NS 275ml ONE (16:14)
--- NOTE | 2018-11-24 17:31 | Infectious Diseases Prog Note ---
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 This could represent either a discrete fluid collection or a focal area of very edematous tissue. Infected fluid pocket also possible. Gram positive bacteremia- real bacteremia- 2ry to above -10/6 Bcx 3/4 S. epi; 11/20 Bcx NTD Probable PNA -CXR: etrocardiac consolidation, possibly pneumonia. Right basilar atelectasis -sp cx MRSA, ABC (I Ceftriaxone; otherwise S) Recent aspiration PNA and UTI (late September 2018) -u/a wbc 5-10, nit +, leuk +1; ucx >100k Enterobacter aerogenes (R ancef, nitro; otherwise S) -sp cx MRSA HTN anxiety chronic resp failure s/p trach s/p PEG thoracic aortic dissection s/p repair early 2017 [place] resident Plan: -Continue empiric IV Vancomycin #7 for S. epi bacteremia, PPM site infection and abscess and PNA -Continue empiric Zosyn #7/10-14 for PNA -f.u cx -Monitor CBC/CMP, temperatures -will need ABBIE to eval for endocarditis and/or PPM lead vegetation -Cards f/u - will need PPM extraction -f/u repeat Bcx x2, sp cx Thank you for this consultation. Will continue to follow along with you. Subjective Allergies: Coded Allergies: No Known Allergies (Unverified , 10/10/17) Subjective afebrile leukocytosis increasing repeat Bcx NTD remains intubated, FIo2 100% Objective Vital Signs Last 24 Hour Vital Signs Date Time Temp Pulse Resp B/P (MAP) Pulse Ox O2 Delivery O2 Flow Rate FiO2 11/24/18 17:20 60 20 100 11/24/18 16:30 98.8 60 20 144/62 (89) 99 11/24/18 16:26 132/62 11/24/18 16:00 60 11/24/18 16:00 Mechanical Ventilator 11/24/18 16:00 99.1 60 20 132/62 (85) 100 11/24/18 16:00 20 Mechanical Ventilator 100 11/24/18 15:30 60 20 135/61 (85) 100 11/24/18 15:19 60 20 100 11/24/18 15:00 20 Mechanical Ventilator 100 11/24/18 15:00 61 20 127/58 (81) 96 11/24/18 14:30 20 Mechanical Ventilator 100 11/24/18 14:30 60 20 121/57 (78) 93 11/24/18 14:15 20 Mechanical Ventilator 100 11/24/18 14:00 20 Mechanical Ventilator 100 11/24/18 14:00 61 20 148/61 (90) 96 11/24/18 13:46 121/55 11/24/18 13:30 61 20 114/55 (74) 93 11/24/18 13:14 20 Mechanical Ventilator 100 11/24/18 13:13 20 Mechanical Ventilator 100 11/24/18 13:00 62 20 121/55 (77) 99 11/24/18 13:00 20 Non-Rebreather 100 11/24/18 12:37 63 20 100 11/24/18 12:30 63 20 146/61 (89) 88 11/24/18 12:00 99.8 67 20 159/75 (103) 89 11/24/18 12:00 71 11/24/18 12:00 20 Mechanical Ventilator 100 11/24/18 12:00 Mechanical Ventilator 11/24/18 11:21 60 20 100 11/24/18 11:00 62 20 116/56 (76) 88 11/24/18 11:00 20 Mechanical Ventilator 100 11/24/18 10:00 20 Mechanical Ventilator 100 11/24/18 10:00 60 20 111/53 (72) 92 11/24/18 09:45 20 Mechanical Ventilator 100 11/24/18 09:30 20 Mechanical Ventilator 100 11/24/18 09:09 60 20 100 11/24/18 09:00 20 Mechanical Ventilator 100 11/24/18 09:00 98.7 61 20 102/55 (71) 89 11/24/18 08:17 60 106/50 11/24/18 08:17 106/50 11/24/18 08:17 60 106/50 11/24/18 08:00 99.0 60 20 106/50 (68) 95 11/24/18 08:00 Mechanical Ventilator 11/24/18 08:00 63 11/24/18 08:00 20 Mechanical Ventilator 100 11/24/18 07:05 62 20 100 11/24/18 07:00 20 Mechanical Ventilator 100 11/24/18 06:31 99.0 11/24/18 06:01 20 Mechanical Ventilator 45.0 100 11/24/18 06:00 20 Mechanical Ventilator 100 11/24/18 05:29 101/51 11/24/18 05:22 62 21 100 11/24/18 05:00 20 Mechanical Ventilator 100 11/24/18 04:00 60 11/24/18 04:00 16 Mechanical Ventilator 100 11/24/18 04:00 Mechanical Ventilator 11/24/18 03:00 60 20 105/52 (69) 94 11/24/18 03:00 16 Mechanical Ventilator 100 11/24/18 02:37 60 20 100 11/24/18 02:00 16 Mechanical Ventilator 100 11/24/18 02:00 60 20 108/64 (79) 94 11/24/18 01:11 60 20 95 Mechanical Ventilator 100 60 20 100 11/24/18 01:00 60 20 114/56 (75) 94 11/24/18 01:00 16 Mechanical Ventilator 100 11/24/18 01:00 105/56 11/24/18 00:02 20 Mechanical Ventilator 100 11/24/18 00:00 99.0 60 20 114/55 (74) 94 11/24/18 00:00 60 11/24/18 00:00 16 Mechanical Ventilator 100 11/24/18 00:00 Mechanical Ventilator 11/23/18 23:56 60 20 100 11/23/18 23:00 60 20 107/50 (69) 94 11/23/18 23:00 20 Mechanical Ventilator 100 11/23/18 22:01 67 134/66 11/23/18 22:01 134/66 11/23/18 22:00 60 20 132/61 (84) 94 11/23/18 22:00 20 Mechanical Ventilator 100 11/23/18 21:00 65 20 130/69 (89) 94 11/23/18 21:00 20 Mechanical Ventilator 100 11/23/18 20:48 60 20 100 11/23/18 20:00 99.6 60 20 129/59 (82) 93 10/11/19 20:00 62 11/23/18 20:00 20 Mechanical Ventilator 100 11/23/18 20:00 Mechanical Ventilator 11/23/18 19:18 60 20 92 Mechanical Ventilator 100 60 20 100 11/23/18 19:18 60 20 92 Mechanical Ventilator 100 11/23/18 19:00 60 20 122/56 (78) 93 11/23/18 19:00 20 Mechanical Ventilator 100 11/23/18 18:00 85 20 134/66 (88) 93 11/23/18 17:47 138/75 11/23/18 17:42 17 100 Height (Feet): 5 Height (Inches): 5.00 Weight (Pounds): 146 Objective HEENT: Eyes were normal. Pupils were round, equal, and reactive to light. Sclerae were white. Conjunctivae were pink. ENT, mucous membranes were not dehydrated. NECK: Supple. No lymphadenopathy. LUNGS: Clear. HEART: PMI was in fifth left intercostal space in midclavicular line. There was normal S1 and normal S2. There was no murmur. No arrhythmia. No S3. No S4. No pericardial rub. ABDOMEN: Soft, nontender without organomegaly. There were no masses palpable. Normal bowel sounds without bruits. There was no guarding. No rebound tenderness. No CVA tenderness. EXTREMITIES: No cyanosis, clubbing, and no edema. Extremities were warm. Laboratory Tests Test 11/23/18 21:54 11/24/18 07:15 11/24/18 07:30 11/24/18 08:55 Arterial Blood pH 7.269 (7.350-7.450) 7.323 (7.350-7.450) Arterial Blood Partial Pressure CO2 47.2 mmHg (35.0-45.0) H 42.5 mmHg (35.0-45.0) Arterial Blood Partial Pressure O2 48.2 mmHg (75.0-100.0) 55.8 mmHg (75.0-100.0) L Arterial Blood HCO3 21.1 mmol/L (22.0-26.0) L 21.6 mmol/L (22.0-26.0) L Arterial Blood Oxygen Saturation 77.7 % (95-100) *L 84.6 % (95-100) *L Arterial Blood Base Excess -5.5 (-2-2) L -4.2 (-2-2) L Rojas Test Positive Positive White Blood Count 17.0 K/UL (4.8-10.8) H Red Blood Count 2.61 M/UL (4.20-5.40) L Hemoglobin 7.4 G/DL (12.0-16.0) L Hematocrit 23.2 % (37.0-47.0) L Mean Corpuscular Volume 89 FL (80-99) Mean Corpuscular Hemoglobin 28.3 PG (27.0-31.0) Mean Corpuscular Hemoglobin Concent 31.9 G/DL (32.0-36.0) L Red Cell Distribution Width 15.6 % (11.6-14.8) H Platelet Count 370 K/UL (150-450) Mean Platelet Volume 4.8 FL (6.5-10.1) L Neutrophils (%) (Auto) % (45.0-75.0) Lymphocytes (%) (Auto) % (20.0-45.0) Monocytes (%) (Auto) % (1.0-10.0) Eosinophils (%) (Auto) % (0.0-3.0) Basophils (%) (Auto) % (0.0-2.0) Differential Total Cells Counted 100 Neutrophils % (Manual) 84 % (45-75) H Lymphocytes % (Manual) 10 % (20-45) L Monocytes % (Manual) 3 % (1-10) Eosinophils % (Manual) 0 % (0-3) Basophils % (Manual) 0 % (0-2) Band Neutrophils 3 % (0-8) Nucleated Red Blood Cells 2 /100 WBC Platelet Estimate Adequate Platelet Morphology Normal Anisocytosis 1+ Sodium Level 140 MMOL/L (136-145) Potassium Level 4.4 MMOL/L (3.5-5.1) Chloride Level 106 MMOL/L (98-107) Carbon Dioxide Level 24 MMOL/L (21-32) Anion Gap 10 mmol/L (5-15) Blood Urea Nitrogen 54 mg/dL (7-18) H Creatinine 2.1 MG/DL (0.55-1.30) H Estimat Glomerular Filtration Rate 25.4 mL/min (>60) Glucose Level 107 MG/DL (74-106) H Calcium Level 8.6 MG/DL (8.5-10.1) Phosphorus Level 3.4 MG/DL (2.5-4.9) Magnesium Level 2.3 MG/DL (1.8-2.4) Total Bilirubin 0.7 MG/DL (0.2-1.0) Aspartate Amino Transf (AST/SGOT) 54 U/L (15-37) H Alanine Aminotransferase (ALT/SGPT) 61 U/L (12-78) Alkaline Phosphatase 846 U/L (46-116) H Total Protein 7.2 G/DL (6.4-8.2) Albumin 2.6 G/DL (3.4-5.0) L Globulin 4.6 g/dL Albumin/Globulin Ratio 0.6 (1.0-2.7) L Current Medications Medications (Trade) Dose Ordered Sig/Penny Route PRN Reason Start Time Stop Time Status Last Admin Dose Admin Acetaminophen (Tylenol) 650 mg Q4H PRN ORAL Mild Pain/Temp > 100.5 11/23/18 14:00 12/19/18 13:59 Amlodipine Besylate (Norvasc) 10 mg DAILY GT 11/24/18 09:00 12/19/18 08:59 Diphenhydramine HCl (Benadryl) 25 mg Q6H PRN IVP Itching 11/23/18 14:00 12/21/18 13:59 Fentanyl Citrate 2500 mcg/Sodium Chloride 250 ml @ 0 mls/hr Q24H IV 11/23/18 17:00 11/30/18 16:59 11/24/18 13:14 Haloperidol Lactate (Haldol) 5 mg Q6H PRN IM Agitation 11/24/18 00:30 12/24/18 00:29 Heparin Sodium (Porcine) (Heparin 5000 units/ml) 5,000 units EVERY 12 HOURS SUBQ 11/23/18 21:00 12/19/18 08:59 11/24/18 08:39 Hydralazine HCl (Apresoline) 10 mg EVERY 4 HOURS GT 11/23/18 17:00 12/19/18 00:59 11/24/18 16:26 Ketorolac Tromethamine (Toradol 30mg) 30 mg Q6H PRN IV For Pain 4-10 11/23/18 14:00 11/25/18 13:59 Lansoprazole (Prevacid) 30 mg DAILY GT 11/24/18 09:00 12/19/18 08:59 11/24/18 08:38 Lorazepam (Ativan 2mg/ml 1ml) 1 mg Q4H PRN IV For Anxiety 11/24/18 10:15 12/01/18 06:14 11/24/18 13:54 Metoprolol Tartrate (Lopressor) 50 mg EVERY 12 HOURS GT 11/23/18 21:00 12/19/18 08:59 11/23/18 22:01 Ondansetron HCl (Zofran) 4 mg Q8H PRN IM Nausea & Vomiting 11/23/18 14:00 12/19/18 13:59 Oxycodone/ Acetaminophen (Percocet 10) 1 tab Q4H PRN ORAL Severe Pain (Pain Scale 7-10) 11/23/18 14:00 11/29/18 13:59 Piperacillin Sod/ Tazobactam Sod 3.375 gm/Sodium Chloride 110 ml @ 27.5 mls/hr Q8H IVPB 11/24/18 08:00 12/01/18 07:59 11/24/18 16:26 Thiamine HCl (Vitamin B1) 100 mg DAILY GT 11/24/18 09:00 12/19/18 08:59 11/24/18 08:38 Vancomycin HCl 1 gm/Dextrose 275 ml @ 183.708 mls/hr Q24H IVPB 11/23/18 22:00 11/28/18 21:59 11/23/18 23:36 Doreen Nino M.D. Nov 24, 2018 17:31
--- NOTE | 2018-11-24 18:38 | Diagnostic Imaging Report ---
History: SOB Exam: US VENOUS BILATERAL LOWER EXTREMITIES Comparison: Findings IMPRESSION: No evidence of DVT within the right or left lower extremity.
--- NOTE | 2018-11-24 22:16 | Cardiology Progress Note ---
Assessment/Plan Assessment/Plan the patient is still in significant respiratory distress, most likely due to sepsis,, will follow Subjective Subjective The patient is resting in bed, she is on ventilator through trach she is minimally interactive Objective Last 24 Hour Vital Signs Date Time Temp Pulse Resp B/P (MAP) Pulse Ox O2 Delivery O2 Flow Rate FiO2 11/24/18 21:49 63 159/110 11/24/18 21:48 159/110 11/24/18 21:11 60 20 100 11/24/18 20:00 20 Mechanical Ventilator 100 11/24/18 19:52 99.5 11/24/18 19:22 20 Mechanical Ventilator 100 11/24/18 19:21 20 Mechanical Ventilator 100 11/24/18 19:09 62 20 100 11/24/18 19:00 20 Mechanical Ventilator 100 11/24/18 19:00 60 21 129/61 (83) 100 11/24/18 18:30 60 20 131/64 (86) 100 11/24/18 18:00 60 21 144/60 (88) 99 11/24/18 18:00 20 Mechanical Ventilator 100 11/24/18 17:30 60 20 143/64 (90) 99 11/24/18 17:20 60 20 100 11/24/18 17:00 62 20 144/65 (91) 100 11/24/18 17:00 20 Mechanical Ventilator 100 11/24/18 16:30 98.8 60 20 144/62 (89) 99 11/24/18 16:26 132/62 11/24/18 16:00 60 11/24/18 16:00 Mechanical Ventilator 11/24/18 16:00 99.1 60 20 132/62 (85) 100 11/24/18 16:00 20 Mechanical Ventilator 100 11/24/18 15:30 60 20 135/61 (85) 100 11/24/18 15:19 60 20 100 11/24/18 15:00 20 Mechanical Ventilator 100 11/24/18 15:00 61 20 127/58 (81) 96 11/24/18 14:30 20 Mechanical Ventilator 100 11/24/18 14:30 60 20 121/57 (78) 93 11/24/18 14:15 20 Mechanical Ventilator 100 11/24/18 14:00 20 Mechanical Ventilator 100 11/24/18 14:00 61 20 148/61 (90) 96 11/24/18 13:46 121/55 11/24/18 13:30 61 20 114/55 (74) 93 11/24/18 13:14 20 Mechanical Ventilator 100 11/24/18 13:13 20 Mechanical Ventilator 100 11/24/18 13:00 62 20 121/55 (77) 99 11/24/18 13:00 20 Non-Rebreather 100 11/24/18 12:37 63 20 100 11/24/18 12:30 63 20 146/61 (89) 88 11/24/18 12:00 99.8 67 20 159/75 (103) 89 11/24/18 12:00 71 11/24/18 12:00 20 Mechanical Ventilator 100 11/24/18 12:00 Mechanical Ventilator 11/24/18 11:21 60 20 100 11/24/18 11:00 62 20 116/56 (76) 88 11/24/18 11:00 20 Mechanical Ventilator 100 11/24/18 10:00 20 Mechanical Ventilator 100 11/24/18 10:00 60 20 111/53 (72) 92 11/24/18 09:45 20 Mechanical Ventilator 100 11/24/18 09:30 20 Mechanical Ventilator 100 11/24/18 09:09 60 20 100 11/24/18 09:00 20 Mechanical Ventilator 100 11/24/18 09:00 98.7 61 20 102/55 (71) 89 11/24/18 08:17 60 106/50 11/24/18 08:17 106/50 11/24/18 08:17 60 106/50 11/24/18 08:00 99.0 60 20 106/50 (68) 95 11/24/18 08:00 Mechanical Ventilator 11/24/18 08:00 63 11/24/18 08:00 20 Mechanical Ventilator 100 11/24/18 07:05 62 20 100 11/24/18 07:00 20 Mechanical Ventilator 100 11/24/18 06:01 20 Mechanical Ventilator 45.0 100 11/24/18 06:00 20 Mechanical Ventilator 100 11/24/18 05:29 101/51 11/24/18 05:22 62 21 100 11/24/18 05:00 20 Mechanical Ventilator 100 11/24/18 04:00 60 11/24/18 04:00 16 Mechanical Ventilator 100 11/24/18 04:00 Mechanical Ventilator 11/24/18 03:00 60 20 105/52 (69) 94 11/24/18 03:00 16 Mechanical Ventilator 100 11/24/18 02:37 60 20 100 11/24/18 02:00 16 Mechanical Ventilator 100 11/24/18 02:00 60 20 108/64 (79) 94 11/24/18 01:11 60 20 95 Mechanical Ventilator 100 60 20 100 11/24/18 01:00 60 20 114/56 (75) 94 11/24/18 01:00 16 Mechanical Ventilator 100 11/24/18 01:00 105/56 11/24/18 00:02 20 Mechanical Ventilator 100 11/24/18 00:00 99.0 60 20 114/55 (74) 94 11/24/18 00:00 60 11/24/18 00:00 16 Mechanical Ventilator 100 11/24/18 00:00 Mechanical Ventilator 11/23/18 23:56 60 20 100 11/23/18 23:00 60 20 107/50 (69) 94 11/23/18 23:00 20 Mechanical Ventilator 100 General Appearance: on vent - , tracheostomy EENT: PERRL/EOMI Neck: other - tracheostomy Rhythm: other - atrial pacing intermittent, Cardiovascular: normal rate Respiratory/Chest: crackles/rales Abdomen: soft Extremities: normal range of motion Intake and Output 11/23/18 11/24/18 19:00 07:00 Intake Total 484.5 ml 1505.000 ml Output Total 50 ml Balance 484.5 ml 1455.000 ml Intake Free Water 60 ml 100 ml IV Total 184.5 ml 865.000 ml Tube Feeding 240 ml 480 ml Other 60 ml Output Urine Total 50 ml # Voids 1 Laboratory Tests Test 11/24/18 07:15 11/24/18 07:30 11/24/18 08:55 11/24/18 20:36 White Blood Count 17.0 K/UL (4.8-10.8) H Red Blood Count 2.61 M/UL (4.20-5.40) L Hemoglobin 7.4 G/DL (12.0-16.0) L Hematocrit 23.2 % (37.0-47.0) L Mean Corpuscular Volume 89 FL (80-99) Mean Corpuscular Hemoglobin 28.3 PG (27.0-31.0) Mean Corpuscular Hemoglobin Concent 31.9 G/DL (32.0-36.0) L Red Cell Distribution Width 15.6 % (11.6-14.8) H Platelet Count 370 K/UL (150-450) Mean Platelet Volume 4.8 FL (6.5-10.1) L Neutrophils (%) (Auto) % (45.0-75.0) Lymphocytes (%) (Auto) % (20.0-45.0) Monocytes (%) (Auto) % (1.0-10.0) Eosinophils (%) (Auto) % (0.0-3.0) Basophils (%) (Auto) % (0.0-2.0) Differential Total Cells Counted 100 Neutrophils % (Manual) 84 % (45-75) H Lymphocytes % (Manual) 10 % (20-45) L Monocytes % (Manual) 3 % (1-10) Eosinophils % (Manual) 0 % (0-3) Basophils % (Manual) 0 % (0-2) Band Neutrophils 3 % (0-8) Nucleated Red Blood Cells 2 /100 WBC Platelet Estimate Adequate Platelet Morphology Normal Anisocytosis 1+ Sodium Level 140 MMOL/L (136-145) Potassium Level 4.4 MMOL/L (3.5-5.1) Chloride Level 106 MMOL/L (98-107) Carbon Dioxide Level 24 MMOL/L (21-32) Anion Gap 10 mmol/L (5-15) Blood Urea Nitrogen 54 mg/dL (7-18) H Creatinine 2.1 MG/DL (0.55-1.30) H Estimat Glomerular Filtration Rate 25.4 mL/min (>60) Glucose Level 107 MG/DL (74-106) H Calcium Level 8.6 MG/DL (8.5-10.1) Phosphorus Level 3.4 MG/DL (2.5-4.9) Magnesium Level 2.3 MG/DL (1.8-2.4) Total Bilirubin 0.7 MG/DL (0.2-1.0) Aspartate Amino Transf (AST/SGOT) 54 U/L (15-37) H Alanine Aminotransferase (ALT/SGPT) 61 U/L (12-78) Alkaline Phosphatase 846 U/L (46-116) H Total Protein 7.2 G/DL (6.4-8.2) Albumin 2.6 G/DL (3.4-5.0) L Globulin 4.6 g/dL Albumin/Globulin Ratio 0.6 (1.0-2.7) L Arterial Blood pH 7.323 (7.350-7.450) Arterial Blood Partial Pressure CO2 42.5 mmHg (35.0-45.0) Arterial Blood Partial Pressure O2 55.8 mmHg (75.0-100.0) L Arterial Blood HCO3 21.6 mmol/L (22.0-26.0) L Arterial Blood Oxygen Saturation 84.6 % (95-100) *L Arterial Blood Base Excess -4.2 (-2-2) L Rojas Test Positive Vancomycin Level Trough 26.4 ug/mL (5.0-12.0) H Dennise Wolfe MD Nov 24, 2018 22:16
[2018-11-25] VITALS (26 sets, daily range): BP systolic 137–169; BP diastolic 59–108
[2018-11-25] MEDS: Piperacillin/Tazobactam 3.375 GM in NS 110 ML IVPB SCH ×3 (01:00→17:39)
[2018-11-25] MEDS: HydrALAZINE 10mg Tab GT SCH ×6 (01:29→23:35)
[2018-11-25] MEDS: fentaNYL Citrate 2500mcg in NS 250ml IV SCH ×4 (01:38→20:19)
--- NOTE | 2018-11-25 03:45 | Progress Note ---
DATE: 11/24/2018 SUBJECTIVE: The patient is treatment. She had febrile episode indicating the seriousness of her condition. She developed again anxiety attack and her saturation dropped to 50. The patient was bagged mechanically on Ambu bag, and it took a long time before the patient's oxygen goes above 92. In addition, the patient had another episode developed more than a few seconds, which self-resolved, and the patient went back to sinus rhythm. OBJECTIVE: VITAL SIGNS: Blood pressure now is 144/60, pulse is 60, respirations of 20, and temperature is 98.8. HEENT: Eyes were normal. ENT, mucous membranes were moist and intact. NECK: Supple with no JVD without lymph nodes. Tracheostomy site is clean. LUNGS: Clear without rhonchi, rales, or wheezing. Secretions are small, thin, and massey. HEART: Normal sounds with regular beats. There is sinus rhythm on monitor. No tachycardia at rest. ABDOMEN: Soft and nontender with normal bowel sounds. EXTREMITIES: Warm without cyanosis, clubbing, or edema. LABORATORY AND DIAGNOSTIC DATA: Hemoglobin is 7.4, hematocrit 23.2 with MCV of 89, WBC of 17,000, and platelets of 370,000. Her BUN and creatinine are 64 and 2.1 respectively. They were 41 and 1.6 yesterday. Her sodium is 140, potassium 4.4, chloride 106, CO2 is 24, calcium is 8.6, phosphorus is 3.4, and magnesium is 2.3. Venous duplex scan of lower extremities revealed no DVT. Sputum culture revealed the patient has Acinetobacter baumannii and Staphylococcus aureus in the sputum. IMPRESSION AND PLAN: The patient's condition remained challenging. She pacemaker now. She is on Ativan 1 mg IV push q.4 h. p.r.n. for anxiety attack. She is on allopurinol 5 mg IM q.6 h. She is on vancomycin 1 g q.24 h. Piperacillin and tazobactam were discontinued. Repeat laboratory tests will be done in a.m. Lucas Dong M.D. DR: SHAWN JOB#: [id number] CC:
[2018-11-25 06:19] LABS: HEMATOCRIT 23.1 % (37.0-47.0); HEMOGLOBIN 7.5 G/DL (12.0-16.0); MEAN CORPUSCULAR VOLUME 89 FL (80-99); PLATELET COUNT 356 K/UL (150-450); RED BLOOD COUNT 2.61 M/UL (4.20-5.40); RED CELL DISTRIBUTION WIDTH 15.3 % (11.6-14.8); WHITE BLOOD COUNT 16.6 K/UL (4.8-10.8)
[2018-11-25 06:43] LABS: ANION GAP 9 mmol/L (5-15); BLOOD UREA NITROGEN 59 mg/dL (7-18); CALCIUM 8.7 MG/DL (8.5-10.1); CARBON DIOXIDE 25 MMOL/L (21-32); CHLORIDE 107 MMOL/L (98-107); CREATININE 1.8 MG/DL (0.55-1.30); POTASSIUM 3.9 MMOL/L (3.5-5.1); SODIUM 141 MMOL/L (136-145)
--- NOTE | 2018-11-25 06:59 | Pulmonolgy Critical Care Note ---
Critical Care - Asmt/Plan Assessment/Plan: ASSESSMENT acute hypoxemic respiratory failure on chronic respiratory failure ; ?ARDS VDRF, trach status sepsis with Staph epidermidis bacteremia pacemaker site infection , likely pocket abscess, r/o endocarditis/PPM lead vegetation probably PNA JAVIER Dysphagia, feeding by G tube HTN Anemia hx of thoracic aortic aneurysm repair 2018 PLAN OF CARE ICU Fentanyl gtt ventilator support , trach care, ABG noted, small improvement, still hypoxic venous Duplex BLE stat fup with CXR and ABG in am asp precautions abx as per ID, repeated BCX negative ECHO with pEF, grade 2 diastolic dysfunction and evidence of mild pulm HTN no evidence of vegetation US of the chest 4.6 x 3.4 x 0.9 cm hypoechoic/anechoic area overlying left chest pacemaker power pack. This could represent either a discrete fluid collection or a focal area of very edematous tissue. Infected fluid pocket also possible. cardio and cardio EP follow Removal of pacing leads/generator planned for Monday, DVT/GI prophylaxis BP management with current regimen monitor renal parameters, lytes, correct lytes prn, avoid nephrotoxics GT feeding, monitor tolerance monitor HH with goal to keep Hgb above 7, stool OB negative supportive care case discussed and evaluated by supervising physician Critical Care - Objective Last 24 Hour Vital Signs Date Time Temp Pulse Resp B/P (MAP) Pulse Ox O2 Delivery O2 Flow Rate FiO2 11/25/18 05:42 156/64 11/25/18 05:18 60 20 100 11/25/18 05:00 60 20 156/64 (94) 100 11/25/18 05:00 20 Mechanical Ventilator 100 11/25/18 04:00 62 11/25/18 04:00 99.4 60 20 143/59 (87) 100 11/25/18 04:00 20 Mechanical Ventilator 100 11/25/18 04:00 Mechanical Ventilator 11/25/18 03:25 64 20 100 11/25/18 03:00 60 17 137/68 (91) 98 11/25/18 03:00 20 Mechanical Ventilator 100 11/25/18 02:08 98.9 11/25/18 02:00 62 20 141/64 (89) 96 11/25/18 02:00 20 Mechanical Ventilator 100 11/25/18 01:38 20 Mechanical Ventilator 45.0 100 11/25/18 01:37 20 Mechanical Ventilator 100 11/25/18 01:29 146/67 11/25/18 01:14 62 20 100 11/25/18 01:00 16 Mechanical Ventilator 100 11/25/18 01:00 16 Mechanical Ventilator 100 11/25/18 01:00 61 19 139/61 (87) 96 11/25/18 00:00 60 11/25/18 00:00 Mechanical Ventilator 11/25/18 00:00 98.9 61 19 146/67 (93) 98 11/24/18 23:30 60 20 145/67 (93) 99 11/24/18 23:09 63 20 100 11/24/18 23:00 60 19 146/66 (92) 97 11/24/18 23:00 16 Mechanical Ventilator 100 11/24/18 22:30 60 20 138/64 (88) 95 11/24/18 22:00 61 20 131/68 (89) 92 11/24/18 22:00 16 Mechanical Ventilator 100 11/24/18 21:49 63 159/110 11/24/18 21:48 159/110 11/24/18 21:30 68 18 159/110 (126) 97 11/24/18 21:11 60 20 100 11/24/18 21:00 16 Mechanical Ventilator 100 11/24/18 20:00 Mechanical Ventilator 11/24/18 20:00 62 11/24/18 20:00 20 Mechanical Ventilator 100 11/24/18 20:00 99.6 68 18 142/61 (88) 97 11/24/18 19:22 20 Mechanical Ventilator 100 11/24/18 19:21 20 Mechanical Ventilator 100 11/24/18 19:09 62 20 100 11/24/18 19:00 20 Mechanical Ventilator 100 11/24/18 19:00 60 21 129/61 (83) 100 11/24/18 18:30 60 20 131/64 (86) 100 11/24/18 18:00 60 21 144/60 (88) 99 11/24/18 18:00 20 Mechanical Ventilator 100 11/24/18 17:30 60 20 143/64 (90) 99 11/24/18 17:20 60 20 100 11/24/18 17:00 62 20 144/65 (91) 100 11/24/18 17:00 20 Mechanical Ventilator 100 11/24/18 16:30 98.8 60 20 144/62 (89) 99 11/24/18 16:26 132/62 11/24/18 16:00 60 11/24/18 16:00 Mechanical Ventilator 11/24/18 16:00 99.1 60 20 132/62 (85) 100 11/24/18 16:00 20 Mechanical Ventilator 100 11/24/18 15:30 60 20 135/61 (85) 100 11/24/18 15:19 60 20 100 11/24/18 15:00 20 Mechanical Ventilator 100 11/24/18 15:00 61 20 127/58 (81) 96 11/24/18 14:30 20 Mechanical Ventilator 100 11/24/18 14:30 60 20 121/57 (78) 93 11/24/18 14:15 20 Mechanical Ventilator 100 11/24/18 14:00 20 Mechanical Ventilator 100 11/24/18 14:00 61 20 148/61 (90) 96 11/24/18 13:46 121/55 11/24/18 13:30 61 20 114/55 (74) 93 11/24/18 13:14 20 Mechanical Ventilator 100 11/24/18 13:13 20 Mechanical Ventilator 100 11/24/18 13:00 62 20 121/55 (77) 99 11/24/18 13:00 20 Non-Rebreather 100 11/24/18 12:37 63 20 100 11/24/18 12:30 63 20 146/61 (89) 88 11/24/18 12:00 99.8 67 20 159/75 (103) 89 11/24/18 12:00 71 11/24/18 12:00 20 Mechanical Ventilator 100 11/24/18 12:00 Mechanical Ventilator 11/24/18 11:21 60 20 100 11/24/18 11:00 62 20 116/56 (76) 88 11/24/18 11:00 20 Mechanical Ventilator 100 11/24/18 10:00 20 Mechanical Ventilator 100 11/24/18 10:00 60 20 111/53 (72) 92 11/24/18 09:45 20 Mechanical Ventilator 100 11/24/18 09:30 20 Mechanical Ventilator 100 11/24/18 09:09 60 20 100 11/24/18 09:00 20 Mechanical Ventilator 100 11/24/18 09:00 98.7 61 20 102/55 (71) 89 11/24/18 08:17 60 106/50 11/24/18 08:17 106/50 11/24/18 08:17 60 106/50 11/24/18 08:00 99.0 60 20 106/50 (68) 95 11/24/18 08:00 Mechanical Ventilator 11/24/18 08:00 63 11/24/18 08:00 20 Mechanical Ventilator 100 11/24/18 07:05 62 20 100 11/24/18 07:00 20 Mechanical Ventilator 100 Objective: Status: sedated Condition: critical, other - on vent AC 600-20-100% PEEP10 HEENT: atraumatic, normocephalic, other - on Vent Neck: trach - Shiley #6, secretions scant, thick, velasco color Lungs: rhonchi - few scattered , left sided chest with pacemaker, erythema, edema, TTP Heart: HR/BP stable Abdomen: soft, non-tender, feeding tube - G tube , tolerating feeding Extremities: no C/C/E, Skin:multiple tattoos Accucheck: 218 Critical Care - Subjective ROS Limited/Unobtainable: Yes Interval Events: PEEP increased yesterday to 10, ABG better, but still hypoxic CXR pending for this am leukocytosis persist, no fevers HH no further drop creat down to 1.8 Condition: critical EKG Rhythm: Sinus Rhythm FI02: 100 Vent Support Breath Rate: 20 Vent Support Mode: AC Vent Tidal Volume: 600 Sputum Amount: Scant PEEP: 10.0 PIP: 29 Drips: Fentanyl gtt 400 mcg/hr Tube Feeding Amount: 40 I&O: Intake and Output 11/24/18 11/25/18 19:00 07:00 Intake Total 1184.2 ml 1123.6 ml Output Total 435 ml 380 ml Balance 749.2 ml 743.6 ml Intake Free Water 60 ml 100 ml IV Total 644.2 ml 563.6 ml Tube Feeding 480 ml 400 ml Other 60 ml Output Urine Total 435 ml 380 ml CXR: CXR 11/24 1. No significant interval change in the diffuse patchy opacities in bilateral lungs, concerning for pneumonia versus pulmonary edema. 2. Cardiomegaly. Yara Castro NP Nov 25, 2018 06:59
[2018-11-25] MEDS: Metoprolol Tartrate 50mg tab GT SCH ×2 (09:38→20:03)
[2018-11-25] MEDS: Thiamine 100mg tab GT SCH (09:38)
--- NOTE | 2018-11-25 09:40 | Diagnostic Imaging Report ---
EXAM: XR Chest, 1 View CLINICAL HISTORY: Shortness of breath TECHNIQUE: Frontal view of the chest. COMPARISON: Chest x-rays dated 11 24 18 FINDINGS: Lungs: Interval mild improvement in the bilateral perihilar opacities and pulmonary vascular congestion likely representing improving pulmonary edema. Pleural space: Possible small layering pleural effusions. Heart: Unremarkable. No cardiomegaly. Mediastinum: Unremarkable. Bones joints: Unremarkable. Tubes, lines and devices: Cardiac pacer in the left chest wall with the lead tips in the right atrium and right ventricle regions. Telemetry leads overlie the thorax. Cardiac silhouette is partially obscured by overlying wires and devices. Stable positioning of the tracheostomy tube. IMPRESSION: 1. Interval mild improvement in the bilateral perihilar opacities and pulmonary vascular congestion likely representing improving pulmonary edema. 2. Possible small layering pleural effusions.
[2018-11-25] MEDS: Heparin 5000 units/ml inj SUBQ SCH ×2 (09:41→20:51)
[2018-11-25] MEDS ORDERED: Tubing IV Secondary IV ONE ×2 (09:54→15:12)
[2018-11-25] MEDS ORDERED: NS 275ml ONE (09:54)
[2018-11-25] MEDS: LORazepam Inj 2mg/ml 1ml IV PRN ×3 (10:18→23:34)
--- NOTE | 2018-11-25 20:09 | Cardiology Progress Note ---
Assessment/Plan Assessment/Plan the patient is still in significant respiratory distress, most likely due to sepsis,, will follow Subjective Subjective still ventilated through trach, she answers with gesture that she is doing fine. Objective Last 24 Hour Vital Signs Date Time Temp Pulse Resp B/P (MAP) Pulse Ox O2 Delivery O2 Flow Rate FiO2 11/25/18 20:03 60 136/64 11/25/18 20:02 138/64 11/25/18 19:11 60 20 90 11/25/18 18:00 60 20 146/64 (91) 100 11/25/18 18:00 20 Mechanical Ventilator 90 11/25/18 17:00 98.0 60 20 149/63 (91) 100 11/25/18 17:00 20 Mechanical Ventilator 90 11/25/18 16:57 60 20 90 11/25/18 16:00 60 11/25/18 16:00 60 20 159/64 (95) 100 11/25/18 16:00 Mechanical Ventilator 11/25/18 16:00 20 Mechanical Ventilator 90 11/25/18 15:16 60 20 90 11/25/18 15:00 148/60 11/25/18 15:00 20 Mechanical Ventilator 90 11/25/18 15:00 60 20 147/60 (89) 100 11/25/18 14:59 97.9 11/25/18 14:06 20 Mechanical Ventilator 90 11/25/18 14:05 20 Mechanical Ventilator 90 11/25/18 14:00 61 20 155/68 (97) 98 11/25/18 13:00 20 Mechanical Ventilator 90 11/25/18 13:00 60 20 154/66 (95) 100 11/25/18 12:44 60 20 90 11/25/18 12:00 Mechanical Ventilator 11/25/18 12:00 97.9 61 15 146/66 (92) 99 11/25/18 12:00 15 Mechanical Ventilator 100 11/25/18 12:00 60 11/25/18 11:16 144/61 11/25/18 11:14 62 20 100 11/25/18 11:00 20 Mechanical Ventilator 100 11/25/18 11:00 61 20 144/61 (88) 99 11/25/18 10:00 62 20 169/75 (106) 98 11/25/18 10:00 20 Mechanical Ventilator 100 11/25/18 09:38 60 148/62 11/25/18 09:38 60 148/62 11/25/18 09:07 60 20 100 11/25/18 09:00 20 Mechanical Ventilator 100 11/25/18 09:00 60 20 147/68 (94) 99 11/25/18 08:03 21 Mechanical Ventilator 100 11/25/18 08:00 98.3 63 17 148/78 (101) 100 11/25/18 08:00 Mechanical Ventilator 11/25/18 08:00 63 11/25/18 07:34 60 20 100 11/25/18 07:00 62 19 161/69 (99) 98 11/25/18 07:00 20 Mechanical Ventilator 100 11/25/18 06:30 60 20 146/108 (121) 100 11/25/18 06:00 20 Mechanical Ventilator 100 11/25/18 06:00 97.8 60 20 154/61 (92) 98 11/25/18 05:42 156/64 11/25/18 05:18 60 20 100 11/25/18 05:00 60 20 156/64 (94) 100 11/25/18 05:00 20 Mechanical Ventilator 100 11/25/18 04:00 62 11/25/18 04:00 99.4 60 20 143/59 (87) 100 11/25/18 04:00 20 Mechanical Ventilator 100 11/25/18 04:00 Mechanical Ventilator 11/25/18 03:25 64 20 100 11/25/18 03:00 60 17 137/68 (91) 98 11/25/18 03:00 20 Mechanical Ventilator 100 11/25/18 02:00 62 20 141/64 (89) 96 11/25/18 02:00 20 Mechanical Ventilator 100 11/25/18 01:38 20 Mechanical Ventilator 45.0 100 11/25/18 01:37 20 Mechanical Ventilator 100 11/25/18 01:29 146/67 11/25/18 01:14 62 20 100 11/25/18 01:00 16 Mechanical Ventilator 100 11/25/18 01:00 16 Mechanical Ventilator 100 11/25/18 01:00 61 19 139/61 (87) 96 11/25/18 00:00 60 11/25/18 00:00 Mechanical Ventilator 11/25/18 00:00 98.9 61 19 146/67 (93) 98 11/24/18 23:30 60 20 145/67 (93) 99 11/24/18 23:09 63 20 100 11/24/18 23:00 60 19 146/66 (92) 97 11/24/18 23:00 16 Mechanical Ventilator 100 11/24/18 22:30 60 20 138/64 (88) 95 11/24/18 22:00 61 20 131/68 (89) 92 11/24/18 22:00 16 Mechanical Ventilator 100 11/24/18 21:49 63 159/110 11/24/18 21:48 159/110 11/24/18 21:30 68 18 159/110 (126) 97 11/24/18 21:11 60 20 100 11/24/18 21:00 16 Mechanical Ventilator 100 General Appearance: on vent - trach EENT: PERRL/EOMI Neck: other - tracheostomy Rhythm: SB Cardiovascular: regular rhythm Respiratory/Chest: crackles/rales, other - pcemaker pocket fluctuating Abdomen: soft Intake and Output 11/24/18 11/25/18 18:59 06:59 Intake Total 1184.2 ml 1283.6 ml Output Total 455 ml 440 ml Balance 729.2 ml 843.6 ml Intake Free Water 60 ml 100 ml IV Total 644.2 ml 643.6 ml Tube Feeding 480 ml 480 ml Other 60 ml Output Urine Total 455 ml 440 ml Laboratory Tests Test 11/24/18 20:36 11/25/18 05:45 11/25/18 06:18 Vancomycin Level Trough 26.4 ug/mL (5.0-12.0) H White Blood Count 16.6 K/UL (4.8-10.8) H Red Blood Count 2.61 M/UL (4.20-5.40) L Hemoglobin 7.5 G/DL (12.0-16.0) L Hematocrit 23.1 % (37.0-47.0) L Mean Corpuscular Volume 89 FL (80-99) Mean Corpuscular Hemoglobin 28.6 PG (27.0-31.0) Mean Corpuscular Hemoglobin Concent 32.3 G/DL (32.0-36.0) Red Cell Distribution Width 15.3 % (11.6-14.8) H Platelet Count 356 K/UL (150-450) Mean Platelet Volume 4.8 FL (6.5-10.1) L Neutrophils (%) (Auto) % (45.0-75.0) Lymphocytes (%) (Auto) % (20.0-45.0) Monocytes (%) (Auto) % (1.0-10.0) Eosinophils (%) (Auto) % (0.0-3.0) Basophils (%) (Auto) % (0.0-2.0) Differential Total Cells Counted 100 Neutrophils % (Manual) 79 % (45-75) H Lymphocytes % (Manual) 15 % (20-45) L Monocytes % (Manual) 4 % (1-10) Eosinophils % (Manual) 1 % (0-3) Basophils % (Manual) 1 % (0-2) Band Neutrophils 0 % (0-8) Platelet Estimate Adequate Platelet Morphology Normal Hypochromasia 3+ Sodium Level 141 MMOL/L (136-145) Potassium Level 3.9 MMOL/L (3.5-5.1) Chloride Level 107 MMOL/L (98-107) Carbon Dioxide Level 25 MMOL/L (21-32) Anion Gap 9 mmol/L (5-15) Blood Urea Nitrogen 59 mg/dL (7-18) H Creatinine 1.8 MG/DL (0.55-1.30) H Estimat Glomerular Filtration Rate 30.3 mL/min (>60) Glucose Level 130 MG/DL (74-106) H Calcium Level 8.7 MG/DL (8.5-10.1) Random Vancomycin Level 22.3 ug/mL Arterial Blood pH 7.335 (7.350-7.450) Arterial Blood Partial Pressure CO2 41.4 mmHg (35.0-45.0) Arterial Blood Partial Pressure O2 57.2 mmHg (75.0-100.0) L Arterial Blood HCO3 21.6 mmol/L (22.0-26.0) L Arterial Blood Oxygen Saturation 87.3 % (95-100) *L Arterial Blood Base Excess -4.0 (-2-2) L Rojas Test Positive pacemaker infection, on vent, pacemaker to remove tomorrow Dennise Wolfe MD Nov 25, 2018 20:09
--- NOTE | 2018-11-25 23:15 | Progress Note ---
DATE: 11/25/2018 SUBJECTIVE: The patient is awake, alert, afebrile, and hemodynamically stable. She is doing well today. Her O2 saturation dropped to 80. She responded to Ativan IV. Following Ativan IV, the patient's O2 saturation increased to 90 and sometimes to 100. PHYSICAL EXAMINATION: VITAL SIGNS: Blood pressure 141/79, pulse is 60, respirations of 20, and temperature was 98. HEENT: Eyes were normal. ENT, mucous membranes were moist and intact. NECK: Supple with no JVD without lymph nodes. Tracheostomy site is clean. LUNGS: Clear without rhonchi, rales, or wheezing. Secretions are small, thin, and whitish. HEART: Normal sounds with regular beats. There is no tachycardia at rest. ABDOMEN: Soft and nontender with normal bowel sounds. Gastrostomy site is clean. EXTREMITIES: Warm without cyanosis, clubbing, or edema. LABORATORY AND DIAGNOSTIC DATA: Hemoglobin is 7.5, hematocrit 23.1 with MCV of 89, WBC of 16.6, and platelets of 356,000. BUN and creatinine are 59 and 1.8 respectively, it was 54 and 2.1 yesterday. Sodium is 141, potassium 3.9, chloride 107, CO2 is 25, and glucose is 130. Her calcium is 8.7. Arterial blood gases today, pH of 7.33, pCO2 41, pO2 57, O2 saturation is 87, and bicarbonate is 21. This was on Ativan. On the vancomycin it was 22.3. Chest x-ray today revealed improvement in the bilateral perihilar opacities and pulmonary vascular congestion. There is possible small pleural effusion neurogenic pulmonary edema. IMPRESSION: We are still waiting for report regarding the pacemaker insertion. WBC 16,000. The patient is on piperacillin and tazobactam 3.375 grams intravenous piggyback q.6 h. and vancomycin because of progressively increased creatinine. Repeat laboratory tests will be done in the a.m. Lucas Dong M.D. DR: Charlotte JOB#: [id number] CC:
[2018-11-26] VITALS (33 sets, daily range): BP systolic 124–225; BP diastolic 54–85
[2018-11-26] MEDS: Piperacillin/Tazobactam 3.375 GM in NS 110 ML IVPB SCH ×4 (00:59→23:33)
[2018-11-26] MEDS: fentaNYL Citrate 2500mcg in NS 250ml IV SCH ×3 (02:32→18:57)
[2018-11-26] MEDS: HydrALAZINE 10mg Tab GT SCH ×3 (03:58→11:00)
[2018-11-26] MEDS: LORazepam Inj 2mg/ml 1ml IV PRN ×3 (03:59→20:17)
[2018-11-26 04:58] LABS: HEMATOCRIT 21.9 % (37.0-47.0); HEMOGLOBIN 7.1 G/DL (12.0-16.0); MEAN CORPUSCULAR VOLUME 88 FL (80-99); PLATELET COUNT 356 K/UL (150-450); RED BLOOD COUNT 2.49 M/UL (4.20-5.40); RED CELL DISTRIBUTION WIDTH 15.4 % (11.6-14.8); WHITE BLOOD COUNT 16.7 K/UL (4.8-10.8)
[2018-11-26 05:35] LABS: ANION GAP 9 mmol/L (5-15); BLOOD UREA NITROGEN 51 mg/dL (7-18); CALCIUM 8.7 MG/DL (8.5-10.1); CARBON DIOXIDE 24 MMOL/L (21-32); CHLORIDE 109 MMOL/L (98-107); CREATININE 1.5 MG/DL (0.55-1.30); POTASSIUM 3.8 MMOL/L (3.5-5.1); SODIUM 142 MMOL/L (136-145)
[2018-11-26] MEDS: Heparin 5000 units/ml inj SUBQ SCH ×2 (09:00→21:00)
[2018-11-26] MEDS: Vancomycin 750mg/NS 275ml IVPB SCH ×2 (09:08)
[2018-11-26] MEDS: Metoprolol Tartrate 50mg tab GT SCH (09:08)
[2018-11-26] MEDS: Thiamine 100mg tab GT SCH (09:09)
--- NOTE | 2018-11-26 09:26 | Anethesia Preoperative Eval ---
Anesthesia Pre-op PMH/ROS General Date of Evaluation: Nov 26, 2018 Time of Evaluation: 09:19 Anesthesiologist: Emily ASA Score: ASA 3 Mallampati Score Class I : Soft palate, uvula, fauces, pillars visible Class II: Soft palate, uvula, fauces visible Class III: Soft palate, base of uvula visible Class IV: Only hard plate visible Mallampati Classification: Class III Surgeon: Dariela Diagnosis: Infected pacemaker pocket Surgical Procedure: Pacemaker removal Anesthesia History: none Social History: drug use - possible met, h/o remote use Family History: no anesthesia problems Allergies: Coded Allergies: No Known Allergies (Unverified , 10/10/17) Medications: see eMAR Patient NPO?: Yes Past Medical History Cardiovascular: Reports: HTN, valve dz - h/o aortic dissection s/p surgery, arrhythmia - h/o symptomatic bradicardia s/p pacemaker placement Pulmonary: Reports: other - recurrent respipatory failure, tracheostomy in place; Denies: asthma, COPD, [place] Gastrointestinal/Genitourinary: Reports: GERD; Denies: CRI, ESRD, other Neurologic/Psychiatric: Reports: depression/anxiety, other - encephalopathy; Denies: dementia, CVA, TIA Endocrine: Reports: DM; Denies: hypothyroidism, steroids, other HEENT: Denies: cataract (L), cataract (R), glaucoma, [place] (R[place] other Hematology/Immune: Reports: anemia; Denies: DVT, bleeding disorder, other Musculoskeletal/Integumentary: Denies: OA, RA, DJD, DDD, edema, other PMH Narrative: as above PSxH Narrative: Repair of aortic aneurysm with dissection, tracheostomy, pacemaker placement Anesthesia Pre-op Phys. Exam Physician Exam Last Vital Signs Date Time Temp Pulse Resp B/P (MAP) Pulse Ox O2 Delivery O2 Flow Rate FiO2 11/26/18 09:13 63 20 60 11/26/18 09:09 149/65 11/26/18 09:01 Mechanical Ventilator 45.0 11/26/18 08:47 100.5 11/26/18 07:00 99 Constitutional: NAD Neurologic: other - unable to obtaine Cardiovascular: RRR Respiratory: CTA Gastrointestinal: S/NT/ND Airway Exam Mallampati Score: Class III MO: limited Neck: traceostomy in place ROM: limited Teeth: missing Dentures: no upper, no lower Anesthesia Pre-op A/P Labs Hematology Test 11/26/18 03:30 White Blood Count 16.7 K/UL (4.8-10.8) H Red Blood Count 2.49 M/UL (4.20-5.40) L Hemoglobin 7.1 G/DL (12.0-16.0) L Hematocrit 21.9 % (37.0-47.0) L Mean Corpuscular Volume 88 FL (80-99) Mean Corpuscular Hemoglobin 28.4 PG (27.0-31.0) Mean Corpuscular Hemoglobin Concent 32.4 G/DL (32.0-36.0) Red Cell Distribution Width 15.4 % (11.6-14.8) H Platelet Count 356 K/UL (150-450) Mean Platelet Volume 5.2 FL (6.5-10.1) L Neutrophils (%) (Auto) % (45.0-75.0) Lymphocytes (%) (Auto) % (20.0-45.0) Monocytes (%) (Auto) % (1.0-10.0) Eosinophils (%) (Auto) % (0.0-3.0) Basophils (%) (Auto) % (0.0-2.0) Differential Total Cells Counted 100 Neutrophils % (Manual) 67 % (45-75) Lymphocytes % (Manual) 24 % (20-45) Monocytes % (Manual) 3 % (1-10) Eosinophils % (Manual) 2 % (0-3) Basophils % (Manual) 0 % (0-2) Band Neutrophils 4 % (0-8) Nucleated Red Blood Cells 3 /100 WBC Platelet Estimate Adequate Platelet Morphology Normal Red Blood Cell Morphology Normal Chemistry Test 11/26/18 03:30 Sodium Level 142 MMOL/L (136-145) Potassium Level 3.8 MMOL/L (3.5-5.1) Chloride Level 109 MMOL/L (98-107) H Carbon Dioxide Level 24 MMOL/L (21-32) Anion Gap 9 mmol/L (5-15) Blood Urea Nitrogen 51 mg/dL (7-18) H Creatinine 1.5 MG/DL (0.55-1.30) H Estimat Glomerular Filtration Rate 37.4 mL/min (>60) Glucose Level 89 MG/DL (74-106) Calcium Level 8.7 MG/DL (8.5-10.1) Risk Assessment & Plan Assessment: asa 3 Plan: GA Status Change Before Surgery: No Pre-Antibiotics Drug: as scheduled Osman Diaz MD Nov 26, 2018 09:26
[2018-11-26] MEDS ORDERED: Midazolam 2mg/2ml Inj ONE (10:00)
[2018-11-26] MEDS ORDERED: Bacitracin 50000 Units Vial ONE (10:09)
[2018-11-26] MEDS ORDERED: Lidocaine 1% Plain 30 ml INJ ONE (10:09)
[2018-11-26] MEDS ORDERED: Bupivacaine 0.5% Inj 30 ml vial INJ ONE (10:09)
[2018-11-26] MEDS ORDERED: Propofol 200mg/20ml IV ONE (10:31)
[2018-11-26] MEDS ORDERED: Lidocaine 1% MPF 10mg/ml 5ml ONE (10:31)
--- NOTE | 2018-11-26 11:11 | Pulmonolgy Critical Care Note ---
Critical Care - Asmt/Plan Problems: (1) Chronic respiratory failure (2) Chest pain (3) JAVIER (acute kidney injury) (4) Anemia (5) Ventilator dependence (6) S/P aortic dissection repair (7) Tracheostomy in place (8) Feeding by G-tube (9) Bacteremia Respiratory: monitor respiratory rate, adjust FIO2, CXR Cardiac: continue to monitor HR/BP Renal: F/U I&O Infectious Disease: check cultures Gastrointestinal: continue feedings/current rate Endocrine: monitor blood sugar Hematologic: monitor H/H Neurologic: PRN Morphine Notes Reviewed: seed laboratory assistant, cardio Discussed with: nurses, consultants, telehealth case managermanager combination - Objective Last 24 Hour Vital Signs Date Time Temp Pulse Resp B/P (MAP) Pulse Ox O2 Delivery O2 Flow Rate FiO2 11/26/18 11:00 20 Mechanical Ventilator 60 11/26/18 10:43 98.7 60 20 124/69 (87) 93 11/26/18 10:24 99.1 11/26/18 10:00 18 Mechanical Ventilator 70 11/26/18 10:00 60 18 137/59 (85) 93 11/26/18 09:45 99.1 60 17 137/61 (86) 93 11/26/18 09:13 63 20 60 11/26/18 09:09 66 149/65 11/26/18 09:08 62 149/65 11/26/18 09:01 21 Mechanical Ventilator 45.0 60 11/26/18 09:00 61 18 149/65 (93) 94 11/26/18 08:47 100.5 11/26/18 08:00 Mechanical Ventilator 11/26/18 08:00 63 20 144/54 (84) 95 11/26/18 08:00 20 Mechanical Ventilator 70 11/26/18 08:00 65 11/26/18 07:48 176/68 11/26/18 07:24 70 21 60 11/26/18 07:00 100.4 60 20 156/59 (91) 99 11/26/18 07:00 20 Mechanical Ventilator 70 11/26/18 06:00 98.4 60 20 159/59 (92) 100 11/26/18 06:00 20 Mechanical Ventilator 70 11/26/18 05:00 60 20 70 11/26/18 05:00 20 Mechanical Ventilator 70 11/26/18 05:00 60 20 152/58 (89) 100 11/26/18 04:00 97.8 63 20 152/68 (96) 97 11/26/18 04:00 62 11/26/18 04:00 Mechanical Ventilator 11/26/18 04:00 20 Mechanical Ventilator 80 11/26/18 03:58 170/74 11/26/18 03:14 60 20 80 11/26/18 03:00 62 20 165/61 (95) 100 11/26/18 03:00 20 Mechanical Ventilator 80 11/26/18 02:32 20 Mechanical Ventilator 45.0 90 11/26/18 02:31 20 Mechanical Ventilator 90 11/26/18 02:00 60 20 151/59 (89) 100 11/26/18 02:00 20 Mechanical Ventilator 90 11/26/18 01:00 20 Mechanical Ventilator 90 11/26/18 01:00 63 20 139/54 (82) 100 11/26/18 00:42 63 20 90 11/26/18 00:00 Mechanical Ventilator 11/26/18 00:00 60 11/26/18 00:00 20 Mechanical Ventilator 90 11/26/18 00:00 98.5 62 19 139/60 (86) 99 11/25/18 23:35 142/86 11/25/18 23:00 60 20 148/65 (92) 95 11/25/18 23:00 20 Mechanical Ventilator 90 11/25/18 22:44 60 20 90 11/25/18 22:30 60 20 160/69 (99) 100 11/25/18 22:00 20 Mechanical Ventilator 90 11/25/18 22:00 61 20 155/76 (102) 100 11/25/18 21:00 63 20 149/64 (92) 96 11/25/18 21:00 63 20 90 11/25/18 21:00 20 Mechanical Ventilator 90 11/25/18 20:19 20 Mechanical Ventilator 45.0 90 11/25/18 20:18 20 Mechanical Ventilator 90 11/25/18 20:03 60 136/64 11/25/18 20:02 138/64 11/25/18 20:00 98.6 60 20 138/64 (88) 99 11/25/18 20:00 Mechanical Ventilator 11/25/18 20:00 20 Mechanical Ventilator 90 11/25/18 20:00 60 11/25/18 19:11 60 20 90 11/25/18 19:00 60 20 142/64 (90) 100 11/25/18 19:00 20 Mechanical Ventilator 90 11/25/18 18:00 60 20 146/64 (91) 100 11/25/18 18:00 20 Mechanical Ventilator 90 11/25/18 17:00 98.0 60 20 149/63 (91) 100 11/25/18 17:00 20 Mechanical Ventilator 90 11/25/18 16:57 60 20 90 11/25/18 16:00 60 11/25/18 16:00 60 20 159/64 (95) 100 11/25/18 16:00 Mechanical Ventilator 11/25/18 16:00 20 Mechanical Ventilator 90 11/25/18 15:16 60 20 90 11/25/18 15:00 148/60 11/25/18 15:00 20 Mechanical Ventilator 90 11/25/18 15:00 60 20 147/60 (89) 100 11/25/18 14:06 20 Mechanical Ventilator 90 11/25/18 14:05 20 Mechanical Ventilator 90 11/25/18 14:00 61 20 155/68 (97) 98 11/25/18 13:00 20 Mechanical Ventilator 90 11/25/18 13:00 60 20 154/66 (95) 100 11/25/18 12:44 60 20 90 11/25/18 12:00 Mechanical Ventilator 11/25/18 12:00 97.9 61 15 146/66 (92) 99 11/25/18 12:00 15 Mechanical Ventilator 100 11/25/18 12:00 60 11/25/18 11:16 144/61 11/25/18 11:14 62 20 100 Status: awake, sedated HEENT: atraumatic Neck: full ROM Heart: HR/BP stable, regular Abdomen: soft, non-tender, feeding tube Extremities: no C/C/E, edema Micro: Microbiology Date/Time Source Procedure Growth Status 11/24/18 20:36 Blood Blood Culture - Preliminary NO GROWTH AFTER 24 HOURS Resulted 11/24/18 20:30 Blood Blood Culture - Preliminary NO GROWTH AFTER 24 HOURS Resulted Accucheck: 218 Critical Care - Subjective ROS Limited/Unobtainable: Yes Condition: critical EKG Rhythm: Sinus Rhythm FI02: 60 Vent Support Breath Rate: 20 Vent Support Mode: AC Vent Tidal Volume: 600 Sputum Amount: Small PEEP: 10.0 PIP: 35 Tube Feeding Amount: 40 I&O: Intake and Output 11/25/18 11/26/18 19:00 07:00 Intake Total 1094.83 ml 1136.5 ml Output Total 900 ml 530 ml Balance 194.83 ml 606.5 ml Intake Free Water 40 ml 200 ml IV Total 574.83 ml 676.5 ml Tube Feeding 480 ml 200 ml Other 60 ml Output Urine Total 900 ml 530 ml Labs: Laboratory Tests Test 11/26/18 03:30 11/26/18 04:00 White Blood Count 16.7 K/UL (4.8-10.8) H Red Blood Count 2.49 M/UL (4.20-5.40) L Hemoglobin 7.1 G/DL (12.0-16.0) L Hematocrit 21.9 % (37.0-47.0) L Mean Corpuscular Volume 88 FL (80-99) Mean Corpuscular Hemoglobin 28.4 PG (27.0-31.0) Mean Corpuscular Hemoglobin Concent 32.4 G/DL (32.0-36.0) Red Cell Distribution Width 15.4 % (11.6-14.8) H Platelet Count 356 K/UL (150-450) Mean Platelet Volume 5.2 FL (6.5-10.1) L Neutrophils (%) (Auto) % (45.0-75.0) Lymphocytes (%) (Auto) % (20.0-45.0) Monocytes (%) (Auto) % (1.0-10.0) Eosinophils (%) (Auto) % (0.0-3.0) Basophils (%) (Auto) % (0.0-2.0) Differential Total Cells Counted 100 Neutrophils % (Manual) 67 % (45-75) Lymphocytes % (Manual) 24 % (20-45) Monocytes % (Manual) 3 % (1-10) Eosinophils % (Manual) 2 % (0-3) Basophils % (Manual) 0 % (0-2) Band Neutrophils 4 % (0-8) Nucleated Red Blood Cells 3 /100 WBC Platelet Estimate Adequate Platelet Morphology Normal Red Blood Cell Morphology Normal Sodium Level 142 MMOL/L (136-145) Potassium Level 3.8 MMOL/L (3.5-5.1) Chloride Level 109 MMOL/L (98-107) H Carbon Dioxide Level 24 MMOL/L (21-32) Anion Gap 9 mmol/L (5-15) Blood Urea Nitrogen 51 mg/dL (7-18) H Creatinine 1.5 MG/DL (0.55-1.30) H Estimat Glomerular Filtration Rate 37.4 mL/min (>60) Glucose Level 89 MG/DL (74-106) Calcium Level 8.7 MG/DL (8.5-10.1) Random Vancomycin Level 14.1 ug/mL Arterial Blood pH 7.438 (7.350-7.450) Arterial Blood Partial Pressure CO2 32.6 mmHg (35.0-45.0) L Arterial Blood Partial Pressure O2 64.8 mmHg (75.0-100.0) L Arterial Blood HCO3 21.5 mmol/L (22.0-26.0) L Arterial Blood Oxygen Saturation 92.8 % (95-100) L Arterial Blood Base Excess -2.3 (-2-2) L Rojas Test Positive Ranjith Arora MD Nov 26, 2018 11:11
[2018-11-26] MEDS ORDERED: NS Irrig 1000ml IRRIG ONE ×2 (11:17→11:40)
--- NOTE | 2018-11-26 11:40 | Diagnostic Imaging Report ---
Indication: Shortness of breath Technique: One view of the chest Comparison: 11/25/2018 Findings: Left chest pacemaker, tracheostomy again demonstrated. There is slightly improved aeration at the right lung base, but interstitial and airspace disease overall persists bilaterally. The heart remains enlarged. There is probably some pleural fluid on the left, unchanged Impression: Slightly improved aeration of the right lung base. Otherwise mostly stable bilateral interstitial and airspace disease
--- NOTE | 2018-11-26 11:52 | Infectious Diseases Prog Note ---
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 This could represent either a discrete fluid collection or a focal area of very edematous tissue. Infected fluid pocket also possible. Gram positive bacteremia- real bacteremia- 2ry to above -/ Bcx 3/4 S. epi; 11/20 Bcx neg; 11/24 Bcx NTD Probable PNA -11/26 CXR: Slightly improved aeration of the right lung base. Otherwise mostly stable bilateral interstitial and airspace disease -CXR: etrocardiac consolidation, possibly pneumonia. Right basilar atelectasis -sp cx MRSA, ABC (I Ceftriaxone; otherwise S) Recent aspiration PNA and UTI (late September 2018) -u/a wbc 5-10, nit +, leuk +1; ucx >100k Enterobacter aerogenes (R ancef, nitro; otherwise S) -sp cx MRSA HTN anxiety chronic resp failure s/p trach s/p PEG thoracic aortic dissection s/p repair early 2017 [place] resident Plan: -Continue empiric IV Vancomycin #9 for S. epi bacteremia, PPM site infection and abscess and PNA -Continue empiric Zosyn #9/10-14 for PNA -f.u cx -Monitor CBC/CMP, temperatures -awaiting ABBIE -Cards f/u - for PPM extraction today -f/u repeat Bcx x2 Thank you for this consultation. Will continue to follow along with you. Subjective Allergies: Coded Allergies: No Known Allergies (Unverified , 10/10/17) Subjective Tm 100.1 wbc remains at 16 for pacemaker removal today Objective Vital Signs Last 24 Hour Vital Signs Date Time Temp Pulse Resp B/P (MAP) Pulse Ox O2 Delivery O2 Flow Rate FiO2 11/26/18 11:30 Ambu-Bag 11/26/18 11:16 60 20 60 11/26/18 11:00 61 19 132/68 (89) 94 11/26/18 11:00 132/68 11/26/18 11:00 20 Mechanical Ventilator 60 10/14/19 10:43 98.7 60 20 124/69 (87) 93 11/26/18 10:24 99.1 11/26/18 10:00 18 Mechanical Ventilator 70 11/26/18 10:00 60 18 137/59 (85) 93 11/26/18 09:45 99.1 60 17 137/61 (86) 93 11/26/18 09:13 63 20 60 11/26/18 09:09 66 149/65 11/26/18 09:08 62 149/65 11/26/18 09:01 21 Mechanical Ventilator 45.0 60 11/26/18 09:00 61 18 149/65 (93) 94 11/26/18 08:47 100.5 11/26/18 08:00 Mechanical Ventilator 11/26/18 08:00 63 20 144/54 (84) 95 11/26/18 08:00 20 Mechanical Ventilator 70 11/26/18 08:00 65 11/26/18 07:48 176/68 11/26/18 07:24 70 21 60 11/26/18 07:00 100.4 60 20 156/59 (91) 99 11/26/18 07:00 20 Mechanical Ventilator 70 11/26/18 06:00 98.4 60 20 159/59 (92) 100 11/26/18 06:00 20 Mechanical Ventilator 70 11/26/18 05:00 60 20 70 11/26/18 05:00 20 Mechanical Ventilator 70 11/26/18 05:00 60 20 152/58 (89) 100 11/26/18 04:00 97.8 63 20 152/68 (96) 97 11/26/18 04:00 62 11/26/18 04:00 Mechanical Ventilator 11/26/18 04:00 20 Mechanical Ventilator 80 11/26/18 03:58 170/74 11/26/18 03:14 60 20 80 11/26/18 03:00 62 20 165/61 (95) 100 11/26/18 03:00 20 Mechanical Ventilator 80 11/26/18 02:32 20 Mechanical Ventilator 45.0 90 11/26/18 02:31 20 Mechanical Ventilator 90 11/26/18 02:00 60 20 151/59 (89) 100 11/26/18 02:00 20 Mechanical Ventilator 90 11/26/18 01:00 20 Mechanical Ventilator 90 11/26/18 01:00 63 20 139/54 (82) 100 11/26/18 00:42 63 20 90 11/26/18 00:00 Mechanical Ventilator 11/26/18 00:00 60 11/26/18 00:00 20 Mechanical Ventilator 90 11/26/18 00:00 98.5 62 19 139/60 (86) 99 11/25/18 23:35 142/86 11/25/18 23:00 60 20 148/65 (92) 95 11/25/18 23:00 20 Mechanical Ventilator 90 11/25/18 22:44 60 20 90 11/25/18 22:30 60 20 160/69 (99) 100 11/25/18 22:00 20 Mechanical Ventilator 90 11/25/18 22:00 61 20 155/76 (102) 100 11/25/18 21:00 63 20 149/64 (92) 96 11/25/18 21:00 63 20 90 11/25/18 21:00 20 Mechanical Ventilator 90 11/25/18 20:19 20 Mechanical Ventilator 45.0 90 11/25/18 20:18 20 Mechanical Ventilator 90 11/25/18 20:03 60 136/64 11/25/18 20:02 138/64 11/25/18 20:00 98.6 60 20 138/64 (88) 99 11/25/18 20:00 Mechanical Ventilator 11/25/18 20:00 20 Mechanical Ventilator 90 11/25/18 20:00 60 11/25/18 19:11 60 20 90 11/25/18 19:00 60 20 142/64 (90) 100 11/25/18 19:00 20 Mechanical Ventilator 90 11/25/18 18:00 60 20 146/64 (91) 100 11/25/18 18:00 20 Mechanical Ventilator 90 11/25/18 17:00 98.0 60 20 149/63 (91) 100 11/25/18 17:00 20 Mechanical Ventilator 90 11/25/18 16:57 60 20 90 11/25/18 16:00 60 11/25/18 16:00 60 20 159/64 (95) 100 11/25/18 16:00 Mechanical Ventilator 11/25/18 16:00 20 Mechanical Ventilator 90 11/25/18 15:16 60 20 90 11/25/18 15:00 148/60 11/25/18 15:00 20 Mechanical Ventilator 90 11/25/18 15:00 60 20 147/60 (89) 100 11/25/18 14:06 20 Mechanical Ventilator 90 11/25/18 14:05 20 Mechanical Ventilator 90 11/25/18 14:00 61 20 155/68 (97) 98 11/25/18 13:00 20 Mechanical Ventilator 90 11/25/18 13:00 60 20 154/66 (95) 100 11/25/18 12:44 60 20 90 11/25/18 12:00 Mechanical Ventilator 11/25/18 12:00 97.9 61 15 146/66 (92) 99 11/25/18 12:00 15 Mechanical Ventilator 100 11/25/18 12:00 60 Height (Feet): 5 Height (Inches): 5.00 Weight (Pounds): 146 Objective HEENT: Eyes were normal. Pupils were round, equal, and reactive to light. Sclerae were white. Conjunctivae were pink. ENT, mucous membranes were not dehydrated. NECK: Supple. No lymphadenopathy. LUNGS: Clear. HEART: PMI was in fifth left intercostal space in midclavicular line. There was normal S1 and normal S2. There was no murmur. No arrhythmia. No S3. No S4. No pericardial rub. ABDOMEN: Soft, nontender without organomegaly. There were no masses palpable. Normal bowel sounds without bruits. There was no guarding. No rebound tenderness. No CVA tenderness. EXTREMITIES: No cyanosis, clubbing, and no edema. Extremities were warm. Microbiology Date/Time Source Procedure Growth Status 11/24/18 20:36 Blood Blood Culture - Preliminary NO GROWTH AFTER 24 HOURS Resulted 11/24/18 20:30 Blood Blood Culture - Preliminary NO GROWTH AFTER 24 HOURS Resulted Laboratory Tests Test 11/26/18 03:30 11/26/18 04:00 White Blood Count 16.7 K/UL (4.8-10.8) H Red Blood Count 2.49 M/UL (4.20-5.40) L Hemoglobin 7.1 G/DL (12.0-16.0) L Hematocrit 21.9 % (37.0-47.0) L Mean Corpuscular Volume 88 FL (80-99) Mean Corpuscular Hemoglobin 28.4 PG (27.0-31.0) Mean Corpuscular Hemoglobin Concent 32.4 G/DL (32.0-36.0) Red Cell Distribution Width 15.4 % (11.6-14.8) H Platelet Count 356 K/UL (150-450) Mean Platelet Volume 5.2 FL (6.5-10.1) L Neutrophils (%) (Auto) % (45.0-75.0) Lymphocytes (%) (Auto) % (20.0-45.0) Monocytes (%) (Auto) % (1.0-10.0) Eosinophils (%) (Auto) % (0.0-3.0) Basophils (%) (Auto) % (0.0-2.0) Differential Total Cells Counted 100 Neutrophils % (Manual) 67 % (45-75) Lymphocytes % (Manual) 24 % (20-45) Monocytes % (Manual) 3 % (1-10) Eosinophils % (Manual) 2 % (0-3) Basophils % (Manual) 0 % (0-2) Band Neutrophils 4 % (0-8) Nucleated Red Blood Cells 3 /100 WBC Platelet Estimate Adequate Platelet Morphology Normal Red Blood Cell Morphology Normal Sodium Level 142 MMOL/L (136-145) Potassium Level 3.8 MMOL/L (3.5-5.1) Chloride Level 109 MMOL/L (98-107) H Carbon Dioxide Level 24 MMOL/L (21-32) Anion Gap 9 mmol/L (5-15) Blood Urea Nitrogen 51 mg/dL (7-18) H Creatinine 1.5 MG/DL (0.55-1.30) H Estimat Glomerular Filtration Rate 37.4 mL/min (>60) Glucose Level 89 MG/DL (74-106) Calcium Level 8.7 MG/DL (8.5-10.1) Random Vancomycin Level 14.1 ug/mL Arterial Blood pH 7.438 (7.350-7.450) Arterial Blood Partial Pressure CO2 32.6 mmHg (35.0-45.0) L Arterial Blood Partial Pressure O2 64.8 mmHg (75.0-100.0) L Arterial Blood HCO3 21.5 mmol/L (22.0-26.0) L Arterial Blood Oxygen Saturation 92.8 % (95-100) L Arterial Blood Base Excess -2.3 (-2-2) L Rojas Test Positive Current Medications Medications (Trade) Dose Ordered Sig/Penny Route PRN Reason Start Time Stop Time Status Last Admin Dose Admin Acetaminophen (Tylenol) 650 mg Q4H PRN ORAL Mild Pain/Temp > 100.5 11/23/18 14:00 12/19/18 13:59 11/26/18 07:47 Albuterol/ Ipratropium (Albuterol/ Ipratropium) 3 ml Q4HRT PRN HHN sob 11/25/18 07:00 11/30/18 06:59 Amlodipine Besylate (Norvasc) 10 mg DAILY GT 11/24/18 09:00 12/19/18 08:59 11/26/18 09:09 Diphenhydramine HCl (Benadryl) 25 mg Q6H PRN IVP Itching 11/23/18 14:00 12/21/18 13:59 Fentanyl Citrate 2500 mcg/Sodium Chloride 250 ml @ 0 mls/hr Q24H IV 11/23/18 17:00 11/30/18 16:59 11/26/18 09:01 Haloperidol Lactate (Haldol) 5 mg Q6H PRN IM Agitation 11/24/18 00:30 12/24/18 00:29 Heparin Sodium (Porcine) (Heparin 5000 units/ml) 5,000 units EVERY 12 HOURS SUBQ 11/23/18 21:00 12/19/18 08:59 11/25/18 09:41 Hydralazine HCl (Apresoline) 10 mg Q4H GT 11/25/18 15:00 12/25/18 14:59 11/26/18 07:48 Lansoprazole (Prevacid) 30 mg DAILY GT 11/24/18 09:00 12/19/18 08:59 11/26/18 09:08 Lorazepam (Ativan 2mg/ml 1ml) 1 mg Q4H PRN IV For Anxiety 11/24/18 10:15 12/01/18 06:14 11/26/18 03:59 Metoprolol Tartrate (Lopressor) 50 mg EVERY 12 HOURS GT 11/23/18 21:00 12/19/18 08:59 11/26/18 09:08 Ondansetron HCl (Zofran) 4 mg Q8H PRN IM Nausea & Vomiting 11/23/18 14:00 12/19/18 13:59 Oxycodone/ Acetaminophen (Percocet 10) 1 tab Q4H PRN ORAL Severe Pain (Pain Scale 7-10) 11/23/18 14:00 11/29/18 13:59 Piperacillin Sod/ Tazobactam Sod 3.375 gm/Sodium Chloride 110 ml @ 27.5 mls/hr Q8H IVPB 11/24/18 08:00 12/01/18 07:59 11/26/18 07:48 Thiamine HCl (Vitamin B1) 100 mg DAILY GT 11/24/18 09:00 12/19/18 08:59 11/26/18 09:09 Vancomycin HCl (Vanco rx to dose) 1 ea DAILY PRN MISC Per rx protocol 11/25/18 07:45 12/25/18 07:44 Vancomycin HCl 750 mg/Sodium Chloride 275 ml @ 183.333 mls/hr Q24H IVPB 11/26/18 08:00 12/01/18 07:59 11/26/18 09:08 Doreen Nino M.D. Nov 26, 2018 11:52
--- NOTE | 2018-11-26 12:53 | Pre-Procedure Note/Attestation ---
Pre-Procedure Note/Attestation Complete Prior to Procedure Planned Procedure: left Procedure Narrative: pacemaker and lead removal Indications for Procedure Pre-Operative Diagnosis: pacemaker infection/ sepsis Attestation I attest that I discussed the nature of the procedure; its benefits; risks and complications; and alternatives (and the risks and benefits of such alternatives ), prior to the procedure, with the patient (or the patient's legal senior account representative). I attest that, if there was a reasonable possibility of needing a blood transfusion, the patient (or the patient's legal senior account representative) was given the [facility] standardized written summary, pursuant to the [place] Blood Safety Act ([place] Health and Safety Code # 1645, as amended). I attest that I re-evaluated the patient just prior to the surgery and that there has been no change in the patient's H&P, except as documented below: Lani Lyle MD Nov 26, 2018 12:53
--- NOTE | 2018-11-26 13:00 | Immediate Post-Op Evaluation ---
Immediate Post-Op Evalulation Immediate Post-Op Evalulation Procedure: Removal of infected pacemaker Date of Evaluation: Nov 26, 2018 Time of Evaluation: 12:59 IV Fluids: 150 Blood Products: none Estimated Blood Loss: min Urinary Output: n/a Blood Pressure Systolic: 114 Blood Pressure Diastolic: 56 Pulse Rate: 48 Respiratory Rate: 16 O2 Sat by Pulse Oximetry: 98 Temperature (Fahrenheit): 97.8 Pain Score (1-10): 1 Nausea: No Vomiting: No Patient Status: no response, ventilated, none Hydration Status: adequate Osman Diaz MD Nov 26, 2018 12:59
--- NOTE | 2018-11-26 13:01 | Operative Note - PDOC ---
Operative Note Operative Note Pre-op Diagnosis: pacemaker infection/ sepsis Post-op Diagnosis: same as pre-op Anesthesia: local, MAC Specimen: yes Complications: none Condition: stable Estimated Blood Loss: minimal Drains: none Implant(s) used?: No Indications for Procedure pacemaker pocket infection and s epi bacteremia/ sepsis Description of Procedure see dictation - device and leads removed under fluroscopy Lani Lyle MD Nov 26, 2018 13:01
--- NOTE | 2018-11-26 13:17 | Cardiac Electrophysiology PN ---
Assessment/Plan Problem List: (1) Pacemaker (2) Acute encephalopathy (3) Sepsis (4) Acute renal failure (5) Encephalopathy (6) Tracheostomy in place (7) Feeding by G-tube (8) Bacteremia Status: not improved, unchanged Status Narrative Mrs Gillis is a 48 yo woman with hx of thoracic aortic dissection - repair (appx 1 yr ago) , chronic type b dissection, pneumonia, chronic respiratory failure, on vent, s/p g tube and s/p pacemaker placement on 11/01 at [facility] for sick sinus syndrome. She was adm w/ pain and swelling at pacer pocket site, and has s epi bacteremia. Sputum w/ acinetobacter and MRSA Device is felt to be infected. ECHO has shown no apparent valve vegetations, but moderate AI. ABBIE has not been done She has been started on iv antibiotics and is followed by ID. Pt has been transferred to ICU due to deterioration in respiratory status. Oxygen sats remain borderline on high fio2 Her pacemaker and leads were removed today - fluid , tissue and lead tips sent for culture. Assessment/Plan Pt w/sinus davis, but normotensive, off pressors. Will stop metoprolol. Give hydralazine if needed for HTN. atropine 0.5 mg iv can be given x1 if needed for symptomatic davis Will plan on device reimplantation when she is more stable, and ID /pulm status cleared. Continue iv antibiotics per ID for bacteremia and pneumonia. Wean FIo2 as tolerated. d/w Dr. Arora Subjective ROS Limited/Unobtainable: Yes Subjective Cardiac EP Pt underwent removal of infected pacing system today. Seen in ICU immediately post op. Remains intubated/ sedated Objective Last 24 Hour Vital Signs Date Time Temp Pulse Resp B/P (MAP) Pulse Ox O2 Delivery O2 Flow Rate FiO2 11/26/18 13:00 48 16 98 11/26/18 12:59 61 20 60 11/26/18 11:30 Ambu-Bag 11/26/18 11:16 60 20 60 11/26/18 11:00 61 19 132/68 (89) 94 11/26/18 11:00 132/68 11/26/18 11:00 20 Mechanical Ventilator 60 11/26/18 10:43 98.7 60 20 124/69 (87) 93 11/26/18 10:24 99.1 11/26/18 10:00 18 Mechanical Ventilator 70 11/26/18 10:00 60 18 137/59 (85) 93 11/26/18 09:45 99.1 60 17 137/61 (86) 93 11/26/18 09:13 63 20 60 11/26/18 09:09 66 149/65 11/26/18 09:08 62 149/65 11/26/18 09:01 21 Mechanical Ventilator 45.0 60 11/26/18 09:00 61 18 149/65 (93) 94 11/26/18 08:47 100.5 11/26/18 08:00 Mechanical Ventilator 11/26/18 08:00 63 20 144/54 (84) 95 11/26/18 08:00 20 Mechanical Ventilator 70 11/26/18 08:00 65 11/26/18 07:48 176/68 11/26/18 07:24 70 21 60 11/26/18 07:00 100.4 60 20 156/59 (91) 99 11/26/18 07:00 20 Mechanical Ventilator 70 11/26/18 06:00 98.4 60 20 159/59 (92) 100 11/26/18 06:00 20 Mechanical Ventilator 70 11/26/18 05:00 60 20 70 11/26/18 05:00 20 Mechanical Ventilator 70 11/26/18 05:00 60 20 152/58 (89) 100 11/26/18 04:00 97.8 63 20 152/68 (96) 97 11/26/18 04:00 62 11/26/18 04:00 Mechanical Ventilator 11/26/18 04:00 20 Mechanical Ventilator 80 11/26/18 03:58 170/74 11/26/18 03:14 60 20 80 11/26/18 03:00 62 20 165/61 (95) 100 11/26/18 03:00 20 Mechanical Ventilator 80 11/26/18 02:32 20 Mechanical Ventilator 45.0 90 11/26/18 02:31 20 Mechanical Ventilator 90 11/26/18 02:00 60 20 151/59 (89) 100 11/26/18 02:00 20 Mechanical Ventilator 90 11/26/18 01:00 20 Mechanical Ventilator 90 11/26/18 01:00 63 20 139/54 (82) 100 11/26/18 00:42 63 20 90 11/26/18 00:00 Mechanical Ventilator 11/26/18 00:00 60 11/26/18 00:00 20 Mechanical Ventilator 90 11/26/18 00:00 98.5 62 19 139/60 (86) 99 11/25/18 23:35 142/86 11/25/18 23:00 60 20 148/65 (92) 95 11/25/18 23:00 20 Mechanical Ventilator 90 11/25/18 22:44 60 20 90 11/25/18 22:30 60 20 160/69 (99) 100 11/25/18 22:00 20 Mechanical Ventilator 90 11/25/18 22:00 61 20 155/76 (102) 100 11/25/18 21:00 63 20 149/64 (92) 96 11/25/18 21:00 63 20 90 11/25/18 21:00 20 Mechanical Ventilator 90 11/25/18 20:19 20 Mechanical Ventilator 45.0 90 11/25/18 20:18 20 Mechanical Ventilator 90 11/25/18 20:03 60 136/64 11/25/18 20:02 138/64 11/25/18 20:00 98.6 60 20 138/64 (88) 99 11/25/18 20:00 Mechanical Ventilator 11/25/18 20:00 20 Mechanical Ventilator 90 11/25/18 20:00 60 11/25/18 19:11 60 20 90 11/25/18 19:00 60 20 142/64 (90) 100 11/25/18 19:00 20 Mechanical Ventilator 90 11/25/18 18:00 60 20 146/64 (91) 100 11/25/18 18:00 20 Mechanical Ventilator 90 11/25/18 17:00 98.0 60 20 149/63 (91) 100 11/25/18 17:00 20 Mechanical Ventilator 90 11/25/18 16:57 60 20 90 11/25/18 16:00 60 11/25/18 16:00 60 20 159/64 (95) 100 11/25/18 16:00 Mechanical Ventilator 11/25/18 16:00 20 Mechanical Ventilator 90 11/25/18 15:16 60 20 90 11/25/18 15:00 148/60 11/25/18 15:00 20 Mechanical Ventilator 90 11/25/18 15:00 60 20 147/60 (89) 100 11/25/18 14:06 20 Mechanical Ventilator 90 11/25/18 14:05 20 Mechanical Ventilator 90 11/25/18 14:00 61 20 155/68 (97) 98 General Appearance: on vent, other - sedated Neck: no JVD, other - trach Rhythm: SB Cardiovascular: regular rhythm, no gallop/murmur, bradycardia Respiratory/Chest: other - clear lungs anteriorly Abdomen: non tender, soft, other - + g tube Intake and Output 11/25/18 11/26/18 19:00 07:00 Intake Total 1094.83 ml 1136.5 ml Output Total 900 ml 530 ml Balance 194.83 ml 606.5 ml Intake Free Water 40 ml 200 ml IV Total 574.83 ml 676.5 ml Tube Feeding 480 ml 200 ml Other 60 ml Output Urine Total 900 ml 530 ml Laboratory Tests Test 11/26/18 03:30 11/26/18 04:00 White Blood Count 16.7 K/UL (4.8-10.8) H Red Blood Count 2.49 M/UL (4.20-5.40) L Hemoglobin 7.1 G/DL (12.0-16.0) L Hematocrit 21.9 % (37.0-47.0) L Mean Corpuscular Volume 88 FL (80-99) Mean Corpuscular Hemoglobin 28.4 PG (27.0-31.0) Mean Corpuscular Hemoglobin Concent 32.4 G/DL (32.0-36.0) Red Cell Distribution Width 15.4 % (11.6-14.8) H Platelet Count 356 K/UL (150-450) Mean Platelet Volume 5.2 FL (6.5-10.1) L Neutrophils (%) (Auto) % (45.0-75.0) Lymphocytes (%) (Auto) % (20.0-45.0) Monocytes (%) (Auto) % (1.0-10.0) Eosinophils (%) (Auto) % (0.0-3.0) Basophils (%) (Auto) % (0.0-2.0) Differential Total Cells Counted 100 Neutrophils % (Manual) 67 % (45-75) Lymphocytes % (Manual) 24 % (20-45) Monocytes % (Manual) 3 % (1-10) Eosinophils % (Manual) 2 % (0-3) Basophils % (Manual) 0 % (0-2) Band Neutrophils 4 % (0-8) Nucleated Red Blood Cells 3 /100 WBC Platelet Estimate Adequate Platelet Morphology Normal Red Blood Cell Morphology Normal Sodium Level 142 MMOL/L (136-145) Potassium Level 3.8 MMOL/L (3.5-5.1) Chloride Level 109 MMOL/L (98-107) H Carbon Dioxide Level 24 MMOL/L (21-32) Anion Gap 9 mmol/L (5-15) Blood Urea Nitrogen 51 mg/dL (7-18) H Creatinine 1.5 MG/DL (0.55-1.30) H Estimat Glomerular Filtration Rate 37.4 mL/min (>60) Glucose Level 89 MG/DL (74-106) Calcium Level 8.7 MG/DL (8.5-10.1) Random Vancomycin Level 14.1 ug/mL Arterial Blood pH 7.438 (7.350-7.450) Arterial Blood Partial Pressure CO2 32.6 mmHg (35.0-45.0) L Arterial Blood Partial Pressure O2 64.8 mmHg (75.0-100.0) L Arterial Blood HCO3 21.5 mmol/L (22.0-26.0) L Arterial Blood Oxygen Saturation 92.8 % (95-100) L Arterial Blood Base Excess -2.3 (-2-2) L Rojas Test Positive Microbiology Date/Time Source Procedure Growth Status 11/24/18 20:36 Blood Blood Culture - Preliminary NO GROWTH AFTER 24 HOURS Resulted 11/24/18 20:30 Blood Blood Culture - Preliminary NO GROWTH AFTER 24 HOURS Resulted Lani Lyle MD Nov 26, 2018 13:17
[2018-11-26] MEDS: HydrALAZINE 10mg Tab ORAL SCH ×2 (17:27→23:59)
--- NOTE | 2018-11-26 18:30 | Operative Note - Dictated ---
DATE OF OPERATION: 11/26/2018 SURGEON: Lani Lyle M.D. ANESTHESIOLOGIST: Osman Diaz M.D. PROCEDURE: Pacemaker removal. ANESTHESIA: General per Dr. Diaz. INDICATION: Pacemaker pocket infection and bacteremia. CLINICAL HISTORY: The patient is a 48-year-old woman with history of aortic dissection status post repair, history of respiratory failure with tracheostomy on chronic ventilator, and status post G-tube placement. She is status post pacemaker placement on 10/27/2018 ([facility]) for sick sinus syndrome. She presented to [facility] with erythema and fluctuance of the pacemaker pocket. Ultrasound showed fluid collection and blood cultures are growing Staphylococcus epidermidis. She was brought for device removal. The explanted device is a [employer] Assurity MRI 2272, serial #[id number]. The atrial lead is a [employer] Tendril 2088TC, serial #[id number]. The ventricular lead is a [employer] Tendril 2088TC, serial #[id number]. All implanted on 10/27/2018. PROCEDURE IN DETAIL: The patient was brought to the operating room and received sedation as per the anesthesiologist, Dr. Diaz. The left chest was sterilely prepped and draped in the usual manner. The skin and underlying soft tissues over the previous incision were infiltrated with 1% Xylocaine local anesthetic. An incision was made over the previous incision and the subcutaneous tissue was cultured. The fibrous capsule enclosing the generator was then opened and there was a ifhit-sl-evykhkyk amount of yellowish fluid drainage. The generator was then removed. Atrial and ventricular leads were detached. The screws were retracted under fluoroscopy and both leads were removed after placement of a stylet down each lead. The necrotic tissue of the pocket was then removed and the pocket was flushed with an antibiotic solution. A suture was used to tie the bleeding from the vein. The pocket was then closed with 2-0 and 4-0 Monocryl absorbable suture and a sterile dressing was applied. She was transferred back to the intensive care unit. Blood pressure and heart rate remained stable throughout the procedure. Lani Lyle M.D. DR: ELENITA JOB#: [id number] CC:
--- NOTE | 2018-11-26 20:16 | Cardiology Progress Note ---
Assessment/Plan Assessment/Plan pacemaker pocket infection bacteremia staph epi HTN anxiety chronic resp failure s/p trach s/p PEG thoracic aortic dissection s/p repair early 2017 [facility] resident bilateral infiltrates repeat cx so far neg 11/23 and vin i personally reviewed echo no vegetation noted there is AR n TR nto sig s/p pacer explanted by dr fleming keep on iv abx sedated cxr report noted imporved bilat infiltrates now saturating fine on sedation patricia possibly tomorrow staff have obtain consent form family as pt unalge to consent helself i left a messa ge for grand mother to obtain consent myself as well Subjective ROS Limited/Unobtainable: Yes Subjective on vent in icu sedated Objective Last 24 Hour Vital Signs Date Time Temp Pulse Resp B/P (MAP) Pulse Ox O2 Delivery O2 Flow Rate FiO2 11/26/18 19:27 98.5 11/26/18 19:06 53 20 95 100 53 20 100 11/26/18 18:57 21 Mechanical Ventilator 100 11/26/18 18:00 58 21 140/57 (84) 95 11/26/18 18:00 21 100 11/26/18 17:27 145/72 11/26/18 17:10 51 20 100 11/26/18 17:00 45 20 145/72 (96) 92 11/26/18 17:00 20 Mechanical Ventilator 100 11/26/18 16:00 Mechanical Ventilator 11/26/18 16:00 54 11/26/18 16:00 20 100 11/26/18 16:00 96.6 45 20 143/56 (85) 90 11/26/18 15:01 59 20 100 11/26/18 15:00 56 20 143/64 (90) 90 11/26/18 15:00 21 Mechanical Ventilator 60 11/26/18 14:30 52 20 128/78 (95) 96 11/26/18 14:00 69 19 190/83 (118) 88 11/26/18 14:00 20 Mechanical Ventilator 60.0 11/26/18 13:45 70 20 225/82 (129) 75 11/26/18 13:30 52 21 174/85 (114) 86 11/26/18 13:15 96.6 46 20 133/59 (83) 94 11/26/18 13:00 48 21 178/85 (116) 86 11/26/18 13:00 48 10/14/19 13:00 Mechanical Ventilator 11/26/18 13:00 20 Mechanical Ventilator 60 11/26/18 13:00 48 98 11/26/18 12:59 61 20 100 11/26/18 11:30 Ambu-Bag 11/26/18 11:16 60 20 60 11/26/18 11:00 61 19 132/68 (89) 94 11/26/18 11:00 132/68 11/26/18 11:00 20 Mechanical Ventilator 60 11/26/18 10:43 98.7 60 20 124/69 (87) 93 11/26/18 10:00 18 Mechanical Ventilator 70 11/26/18 10:00 60 18 137/59 (85) 93 11/26/18 09:45 99.1 60 17 137/61 (86) 93 11/26/18 09:13 63 20 60 11/26/18 09:09 66 149/65 11/26/18 09:08 62 149/65 11/26/18 09:01 21 Mechanical Ventilator 45.0 60 11/26/18 09:00 61 18 149/65 (93) 94 11/26/18 08:47 100.5 11/26/18 08:00 Mechanical Ventilator 11/26/18 08:00 63 20 144/54 (84) 95 11/26/18 08:00 20 Mechanical Ventilator 70 11/26/18 08:00 65 11/26/18 07:48 176/68 11/26/18 07:24 70 21 60 11/26/18 07:00 100.4 60 20 156/59 (91) 99 11/26/18 07:00 20 Mechanical Ventilator 70 11/26/18 06:00 98.4 60 20 159/59 (92) 100 11/26/18 06:00 20 Mechanical Ventilator 70 11/26/18 05:00 60 20 70 11/26/18 05:00 20 Mechanical Ventilator 70 11/26/18 05:00 60 20 152/58 (89) 100 11/26/18 04:00 97.8 63 20 152/68 (96) 97 11/26/18 04:00 62 11/26/18 04:00 Mechanical Ventilator 11/26/18 04:00 20 Mechanical Ventilator 80 11/26/18 03:58 170/74 11/26/18 03:14 60 20 80 10/14/19 03:00 62 20 165/61 (95) 100 11/26/18 03:00 20 Mechanical Ventilator 80 11/26/18 02:32 20 Mechanical Ventilator 45.0 90 11/26/18 02:31 20 Mechanical Ventilator 90 11/26/18 02:00 60 20 151/59 (89) 100 11/26/18 02:00 20 Mechanical Ventilator 90 11/26/18 01:00 20 Mechanical Ventilator 90 11/26/18 01:00 63 20 139/54 (82) 100 11/26/18 00:42 63 20 90 11/26/18 00:00 Mechanical Ventilator 11/26/18 00:00 60 11/26/18 00:00 20 Mechanical Ventilator 90 11/26/18 00:00 98.5 62 19 139/60 (86) 99 11/25/18 23:35 142/86 11/25/18 23:00 60 20 148/65 (92) 95 11/25/18 23:00 20 Mechanical Ventilator 90 11/25/18 22:44 60 20 90 11/25/18 22:30 60 20 160/69 (99) 100 11/25/18 22:00 20 Mechanical Ventilator 90 11/25/18 22:00 61 20 155/76 (102) 100 11/25/18 21:00 63 20 149/64 (92) 96 11/25/18 21:00 63 20 90 11/25/18 21:00 20 Mechanical Ventilator 90 11/25/18 20:19 20 Mechanical Ventilator 45.0 90 11/25/18 20:18 20 Mechanical Ventilator 90 General Appearance: no apparent distress, alert Neck: supple Cardiovascular: normal rate Respiratory/Chest: lungs clear Abdomen: normal bowel sounds, non tender, soft Extremities: non-tender Intake and Output 11/25/18 11/26/18 18:59 06:59 Intake Total 1144.83 ml 1176.5 ml Output Total 880 ml 480 ml Balance 264.83 ml 696.5 ml Intake Free Water 90 ml 200 ml IV Total 574.83 ml 676.5 ml Tube Feeding 480 ml 240 ml Other 60 ml Output Urine Total 880 ml 480 ml Laboratory Tests Test 11/26/18 03:30 11/26/18 04:00 White Blood Count 16.7 K/UL (4.8-10.8) H Red Blood Count 2.49 M/UL (4.20-5.40) L Hemoglobin 7.1 G/DL (12.0-16.0) L Hematocrit 21.9 % (37.0-47.0) L Mean Corpuscular Volume 88 FL (80-99) Mean Corpuscular Hemoglobin 28.4 PG (27.0-31.0) Mean Corpuscular Hemoglobin Concent 32.4 G/DL (32.0-36.0) Red Cell Distribution Width 15.4 % (11.6-14.8) H Platelet Count 356 K/UL (150-450) Mean Platelet Volume 5.2 FL (6.5-10.1) L Neutrophils (%) (Auto) % (45.0-75.0) Lymphocytes (%) (Auto) % (20.0-45.0) Monocytes (%) (Auto) % (1.0-10.0) Eosinophils (%) (Auto) % (0.0-3.0) Basophils (%) (Auto) % (0.0-2.0) Differential Total Cells Counted 100 Neutrophils % (Manual) 67 % (45-75) Lymphocytes % (Manual) 24 % (20-45) Monocytes % (Manual) 3 % (1-10) Eosinophils % (Manual) 2 % (0-3) Basophils % (Manual) 0 % (0-2) Band Neutrophils 4 % (0-8) Nucleated Red Blood Cells 3 /100 WBC Platelet Estimate Adequate Platelet Morphology Normal Red Blood Cell Morphology Normal Sodium Level 142 MMOL/L (136-145) Potassium Level 3.8 MMOL/L (3.5-5.1) Chloride Level 109 MMOL/L (98-107) H Carbon Dioxide Level 24 MMOL/L (21-32) Anion Gap 9 mmol/L (5-15) Blood Urea Nitrogen 51 mg/dL (7-18) H Creatinine 1.5 MG/DL (0.55-1.30) H Estimat Glomerular Filtration Rate 37.4 mL/min (>60) Glucose Level 89 MG/DL (74-106) Calcium Level 8.7 MG/DL (8.5-10.1) Random Vancomycin Level 14.1 ug/mL Arterial Blood pH 7.438 (7.350-7.450) Arterial Blood Partial Pressure CO2 32.6 mmHg (35.0-45.0) L Arterial Blood Partial Pressure O2 64.8 mmHg (75.0-100.0) L Arterial Blood HCO3 21.5 mmol/L (22.0-26.0) L Arterial Blood Oxygen Saturation 92.8 % (95-100) L Arterial Blood Base Excess -2.3 (-2-2) L Rojas Test Positive Microbiology Date/Time Source Procedure Growth Status 11/24/18 20:36 Blood Blood Culture - Preliminary NO GROWTH AFTER 24 HOURS Resulted 11/24/18 20:30 Blood Blood Culture - Preliminary NO GROWTH AFTER 24 HOURS Resulted Carlos Rooney MD Nov 26, 2018 20:16
[2018-11-27] VITALS (44 sets, daily range): BP systolic 113–193; BP diastolic 45–93
[2018-11-27] MEDS: fentaNYL Citrate 2500mcg in NS 250ml IV SCH ×4 (00:54→19:40)
[2018-11-27] MEDS: LORazepam Inj 2mg/ml 1ml IV PRN ×2 (01:25→17:47)
[2018-11-27 05:48] LABS: HEMATOCRIT 24.4 % (37.0-47.0); HEMOGLOBIN 7.8 G/DL (12.0-16.0); MEAN CORPUSCULAR VOLUME 89 FL (80-99); PLATELET COUNT 336 K/UL (150-450); RED BLOOD COUNT 2.74 M/UL (4.20-5.40); WHITE BLOOD COUNT 15.1 K/UL (4.8-10.8)
[2018-11-27 06:11] LABS: ANION GAP 10 mmol/L (5-15); BLOOD UREA NITROGEN 44 mg/dL (7-18); CALCIUM 8.4 MG/DL (8.5-10.1); CARBON DIOXIDE 22 MMOL/L (21-32); CHLORIDE 111 MMOL/L (98-107); CREATININE 1.6 MG/DL (0.55-1.30); POTASSIUM 3.7 MMOL/L (3.5-5.1); SODIUM 143 MMOL/L (136-145)
[2018-11-27] MEDS: HydrALAZINE 10mg Tab ORAL SCH ×3 (06:28→17:47)
[2018-11-27] MEDS ORDERED: NS 275ml ONE (06:29)
[2018-11-27] MEDS: Piperacillin/Tazobactam 3.375 GM in NS 110 ML IVPB SCH ×3 (08:31→23:44)
[2018-11-27] MEDS: Thiamine 100mg tab GT SCH (08:32)
[2018-11-27] MEDS: Heparin 5000 units/ml inj SUBQ SCH ×2 (08:34→20:47)
--- NOTE | 2018-11-27 08:56 | 48 Hour Post Anesthesia Eval ---
Post Anesthesia Evaluation Procedure: Removal of infected pacemaker Date of Evaluation: Nov 27, 2018 Airway: other - trach in place Nausea: No Vomiting: No Hydration Status: adequate Cardiopulmonary Status: at baseline Mental Status/LOC: patient returned to baseline Post-Anesthesia Complications: 0 Follow-up care needed: N/A - further care as per primary team Sherrie Jason MD Nov 27, 2018 08:56
[2018-11-27] MEDS: Vancomycin 750mg/NS 275ml IVPB SCH ×2 (09:22)
--- NOTE | 2018-11-27 10:23 | Pulmonolgy Critical Care Note ---
Critical Care - Asmt/Plan Problems: (1) Chronic respiratory failure (2) Chest pain (3) JAVIER (acute kidney injury) (4) Anemia (5) Ventilator dependence (6) S/P aortic dissection repair (7) Tracheostomy in place (8) Feeding by G-tube (9) Bacteremia Respiratory: monitor respiratory rate, adjust FIO2, CXR Cardiac: continue pressors, continue to monitor HR/BP Renal: F/U I&O Infectious Disease: check cultures, continue antibiotics Gastrointestinal: hold feedings Endocrine: monitor blood sugar, check TSH, check HgA1C, continue sliding scale insulin Hematologic: transfuse if hgb<8.5 Neurologic: PRN Morphine, keep patient comfortable Time Spent (Minutes): 40 Notes 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, 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 Discussed with: nurses, consultants, casework specialistproduct line manager - Objective Last 24 Hour Vital Signs Date Time Temp Pulse Resp B/P (MAP) Pulse Ox O2 Delivery O2 Flow Rate FiO2 11/27/18 08:49 65 22 75 11/27/18 08:33 65 170/71 11/27/18 07:39 97.4 11/27/18 07:30 47 20 147/60 (89) 97 11/27/18 07:22 47 20 80 11/27/18 07:09 20 Mechanical Ventilator 60.0 80 11/27/18 07:08 20 Mechanical Ventilator 80 11/27/18 07:00 20 Mechanical Ventilator 80 11/27/18 07:00 46 20 148/57 (87) 100 11/27/18 06:30 47 20 145/58 (87) 100 11/27/18 06:28 141/58 11/27/18 06:00 97.4 48 20 141/58 (85) 100 11/27/18 06:00 20 Mechanical Ventilator 80 11/27/18 05:14 54 21 80 11/27/18 05:00 59 20 149/65 (93) 99 11/27/18 05:00 20 Mechanical Ventilator 80 11/27/18 04:30 50 21 140/59 (86) 99 11/27/18 04:00 51 11/27/18 04:00 Mechanical Ventilator 11/27/18 04:00 20 Mechanical Ventilator 80 11/27/18 04:00 98.0 60 20 144/64 (90) 94 11/27/18 03:02 56 20 70 11/27/18 03:00 20 Mechanical Ventilator 80 10/15/19 03:00 101.8 60 19 139/65 (89) 100 11/27/18 02:00 102.0 58 27 138/59 (85) 94 11/27/18 02:00 20 Mechanical Ventilator 80 11/27/18 01:55 102.0 11/27/18 01:30 102.4 62 21 143/62 (89) 98 11/27/18 01:27 63 22 80 11/27/18 01:00 20 Mechanical Ventilator 80 11/27/18 01:00 62 21 135/74 (94) 94 11/27/18 00:54 20 Mechanical Ventilator 80 11/27/18 00:53 20 Mechanical Ventilator 80 11/27/18 00:30 59 20 151/65 (93) 94 11/27/18 00:00 101.3 56 20 147/64 (91) 92 11/27/18 00:00 Mechanical Ventilator 11/27/18 00:00 52 11/27/18 00:00 20 Mechanical Ventilator 80 11/26/18 23:59 148/61 11/26/18 23:30 53 20 148/61 (90) 95 11/26/18 23:00 51 20 145/61 (89) 96 11/26/18 23:00 20 Mechanical Ventilator 80 11/26/18 22:53 51 20 80 11/26/18 22:00 51 20 144/60 (88) 97 11/26/18 22:00 20 Mechanical Ventilator 90 11/26/18 21:30 51 20 137/59 (85) 96 11/26/18 21:14 50 20 100 90 11/26/18 21:00 20 Mechanical Ventilator 90 11/26/18 21:00 52 20 132/57 (82) 98 11/26/18 20:30 54 20 134/60 (84) 98 11/26/18 20:00 Mechanical Ventilator 11/26/18 20:00 20 Mechanical Ventilator 100 11/26/18 20:00 51 11/26/18 20:00 99.0 52 20 140/58 (85) 94 11/26/18 19:30 51 20 134/57 (82) 96 11/26/18 19:06 53 20 95 100 53 20 100 11/26/18 19:00 55 19 145/64 (91) 95 10/14/19 18:57 21 Mechanical Ventilator 100 11/26/18 18:00 58 21 140/57 (84) 95 11/26/18 18:00 21 100 11/26/18 17:27 145/72 11/26/18 17:10 51 20 100 11/26/18 17:00 45 20 145/72 (96) 92 11/26/18 17:00 20 Mechanical Ventilator 100 11/26/18 16:00 Mechanical Ventilator 11/26/18 16:00 54 11/26/18 16:00 20 100 11/26/18 16:00 96.6 45 20 143/56 (85) 90 11/26/18 15:01 59 20 100 11/26/18 15:00 56 20 143/64 (90) 90 11/26/18 15:00 21 Mechanical Ventilator 60 11/26/18 14:30 52 20 128/78 (95) 96 11/26/18 14:00 69 19 190/83 (118) 88 11/26/18 14:00 20 Mechanical Ventilator 60.0 11/26/18 13:45 70 20 225/82 (129) 75 11/26/18 13:30 52 21 174/85 (114) 86 11/26/18 13:15 96.6 46 20 133/59 (83) 94 11/26/18 13:00 48 21 178/85 (116) 86 11/26/18 13:00 48 11/26/18 13:00 Mechanical Ventilator 11/26/18 13:00 20 Mechanical Ventilator 60 11/26/18 13:00 48 98 11/26/18 12:59 61 20 100 11/26/18 11:30 Ambu-Bag 11/26/18 11:16 60 20 60 11/26/18 11:00 61 19 132/68 (89) 94 11/26/18 11:00 132/68 11/26/18 11:00 20 Mechanical Ventilator 60 11/26/18 10:43 98.7 60 20 124/69 (87) 93 Status: awake Condition: critical HEENT: atraumatic Lungs: clear Heart: HR/BP stable Abdomen: active bowel sounds Extremities: no C/C/E, edema Decubiti: location Micro: Microbiology Date/Time Source Procedure Growth Status 11/24/18 20:36 Blood Blood Culture - Preliminary NO GROWTH AFTER 48 HOURS Resulted 11/24/18 20:30 Blood Blood Culture - Preliminary NO GROWTH AFTER 48 HOURS Resulted Accucheck: 218 Critical Care - Subjective ROS Limited/Unobtainable: Yes Condition: critical EKG Rhythm: Sinus Rhythm FI02: 75 Vent Support Breath Rate: 20 Vent Support Mode: AC Vent Tidal Volume: 600 Sputum Amount: Scant PEEP: 10.0 PIP: 34 Tube Feeding Amount: 40 I&O: Intake and Output 11/26/18 11/27/18 19:00 07:00 Intake Total 1165.500 ml 1104.0 ml Output Total 270 ml 395 ml Balance 895.500 ml 709.0 ml Intake Free Water 60 ml 100 ml IV Total 815.500 ml 594.0 ml Tube Feeding 240 ml 160 ml Blood Product 250 ml Other 50 ml Output Urine Total 270 ml 395 ml CXR: somewhat improved Labs: Laboratory Tests Test 11/27/18 04:45 White Blood Count 15.1 K/UL (4.8-10.8) H Red Blood Count 2.74 M/UL (4.20-5.40) L Hemoglobin 7.8 G/DL (12.0-16.0) L Hematocrit 24.4 % (37.0-47.0) L Mean Corpuscular Volume 89 FL (80-99) Mean Corpuscular Hemoglobin 28.5 PG (27.0-31.0) Mean Corpuscular Hemoglobin Concent 32.1 G/DL (32.0-36.0) Red Cell Distribution Width 15.0 % (11.6-14.8) H Platelet Count 336 K/UL (150-450) Mean Platelet Volume 5.4 FL (6.5-10.1) L Neutrophils (%) (Auto) % (45.0-75.0) Lymphocytes (%) (Auto) % (20.0-45.0) Monocytes (%) (Auto) % (1.0-10.0) Eosinophils (%) (Auto) % (0.0-3.0) Basophils (%) (Auto) % (0.0-2.0) Differential Total Cells Counted 100 Neutrophils % (Manual) 73 % (45-75) Lymphocytes % (Manual) 15 % (20-45) L Monocytes % (Manual) 8 % (1-10) Eosinophils % (Manual) 4 % (0-3) H Basophils % (Manual) 0 % (0-2) Band Neutrophils 0 % (0-8) Platelet Estimate Adequate Platelet Morphology Normal Anisocytosis 1+ Sodium Level 143 MMOL/L (136-145) Potassium Level 3.7 MMOL/L (3.5-5.1) Chloride Level 111 MMOL/L (98-107) H Carbon Dioxide Level 22 MMOL/L (21-32) Anion Gap 10 mmol/L (5-15) Blood Urea Nitrogen 44 mg/dL (7-18) H Creatinine 1.6 MG/DL (0.55-1.30) H Estimat Glomerular Filtration Rate 34.7 mL/min (>60) Glucose Level 87 MG/DL (74-106) Calcium Level 8.4 MG/DL (8.5-10.1) L Ranjith Arora MD Nov 27, 2018 10:23
[2018-11-27] MEDS ORDERED: Propofol 200mg/20ml IV ONE (10:45)
[2018-11-27] MEDS ORDERED: Lidocaine 1% MPF 10mg/ml 5ml ONE (10:45)
[2018-11-27] MEDS ORDERED: fentaNYL 100 mcg/2 mL IV PRN (11:00)
[2018-11-27] MEDS ORDERED: Midazolam 2mg/2ml Inj IVP PRN (11:00)
[2018-11-27] MEDS ORDERED: Atropine Inj 1mg/10ml Syr IV PRN (11:00)
[2018-11-27] MEDS ORDERED: NS 500ML IVPB ONE (11:00)
[2018-11-27] MEDS ORDERED: DiphenhydrAMINE 50mg/ml Inj IVP PRN (11:00)
--- NOTE | 2018-11-27 11:00 | Anethesia Preoperative Eval ---
Anesthesia Pre-op PMH/ROS General Date of Evaluation: Nov 27, 2018 Time of Evaluation: 10:45 Anesthesiologist: luisa ASA Score: ASA 4 Mallampati Score Class I : Soft palate, uvula, fauces, pillars visible Class II: Soft palate, uvula, fauces visible Class III: Soft palate, base of uvula visible Class IV: Only hard plate visible Mallampati Classification: Class III Surgeon: jimena Diagnosis: bacteremia rule out valvular vegetations Surgical Procedure: patricia Anesthesia History: none Social History: drug use Family History: no anesthesia problems Allergies: Coded Allergies: No Known Allergies (Unverified , 10/10/17) Medications: see eMAR Patient NPO?: Yes NPO Date: Nov 26, 2018 NPO Time: 0000 Past Medical History Cardiovascular: Reports: HTN, arrhythmia - bradycardia, other - pacemaker Pulmonary: Reports: other - respiratory failure, ventilator dependent, tracheostomy, pneumonia Neurologic/Psychiatric: Reports: dementia, depression/anxiety, other - parkinson's disease, dysphasia Hematology/Immune: Reports: anemia Anesthesia Pre-op Phys. Exam Physician Exam Last Vital Signs Date Time Temp Pulse Resp B/P (MAP) Pulse Ox O2 Delivery O2 Flow Rate FiO2 11/27/18 10:32 54 20 75 11/27/18 10:00 138/60 (86) 91 11/27/18 08:00 Mechanical Ventilator 11/27/18 08:00 99.1 11/27/18 07:09 60.0 Constitutional: NAD Neurologic: CN 2-12 intact Cardiovascular: other - bradycardia Respiratory: other - tracheostomy, ventilator dependent Gastrointestinal: other - peg Airway Exam Mallampati Score: Class III MO: limited Neck: tracheostomy TMD: 2fb ROM: limited Anesthesia Pre-op A/P Labs Hematology Test 11/27/18 04:45 White Blood Count 15.1 K/UL (4.8-10.8) H Red Blood Count 2.74 M/UL (4.20-5.40) L Hemoglobin 7.8 G/DL (12.0-16.0) L Hematocrit 24.4 % (37.0-47.0) L Mean Corpuscular Volume 89 FL (80-99) Mean Corpuscular Hemoglobin 28.5 PG (27.0-31.0) Mean Corpuscular Hemoglobin Concent 32.1 G/DL (32.0-36.0) Red Cell Distribution Width 15.0 % (11.6-14.8) H Platelet Count 336 K/UL (150-450) Mean Platelet Volume 5.4 FL (6.5-10.1) L Neutrophils (%) (Auto) % (45.0-75.0) Lymphocytes (%) (Auto) % (20.0-45.0) Monocytes (%) (Auto) % (1.0-10.0) Eosinophils (%) (Auto) % (0.0-3.0) Basophils (%) (Auto) % (0.0-2.0) Differential Total Cells Counted 100 Neutrophils % (Manual) 73 % (45-75) Lymphocytes % (Manual) 15 % (20-45) L Monocytes % (Manual) 8 % (1-10) Eosinophils % (Manual) 4 % (0-3) H Basophils % (Manual) 0 % (0-2) Band Neutrophils 0 % (0-8) Platelet Estimate Adequate Platelet Morphology Normal Anisocytosis 1+ Chemistry Test 11/27/18 04:45 Sodium Level 143 MMOL/L (136-145) Potassium Level 3.7 MMOL/L (3.5-5.1) Chloride Level 111 MMOL/L (98-107) H Carbon Dioxide Level 22 MMOL/L (21-32) Anion Gap 10 mmol/L (5-15) Blood Urea Nitrogen 44 mg/dL (7-18) H Creatinine 1.6 MG/DL (0.55-1.30) H Estimat Glomerular Filtration Rate 34.7 mL/min (>60) Glucose Level 87 MG/DL (74-106) Calcium Level 8.4 MG/DL (8.5-10.1) L Risk Assessment & Plan Assessment: [email or web address] Plan: mac Status Change Before Surgery: No Pre-Antibiotics Drug: Sissy Henriquez MD Nov 27, 2018 11:00
--- NOTE | 2018-11-27 11:00 | Progress Note ---
DATE: 11/26/2018 SUBJECTIVE: The patient is now intermittently agitated. Today, her pacemaker was removed and metoprolol was discontinued. Heart rate now is 50. She is scheduled to undergo transesophageal echocardiography in the morning and consent has been obtained from family. In addition, the patient received 1 unit of packed RBC. PHYSICAL EXAMINATION: VITAL SIGNS: Blood pressure 144/68, pulse 52, respirations 20, and temperature is 99. HEENT: Eyes were normal. ENT, mucous membranes were moist and intact. NECK: Supple with no JVD without lymph nodes. Tracheostomy site is clean. LUNGS: Clear without rhonchi, rales, or wheezing. Secretions are small, thin, and massey. HEART: Normal sounds with regular beats. There is no S3, S4, or pericardial rub. ABDOMEN: Soft and nontender with normal bowel sounds. Gastrostomy site is clean. EXTREMITIES: Warm without cyanosis, clubbing, or edema. The patient is back on , maximal dose is 400 mcg. She will receive Ativan 2 mg IV push every six hours. LABORATORY AND DIAGNOSTIC DATA: Hemoglobin is 7.1, hematocrit 21.9 with MCV of 88, WBC is 16.7, and platelets are 386. Her BUN and creatinine is 51 and 1.5 respectively. Her sodium is 142, potassium 3.8, chloride , CO2 is 24. Chest x-ray done today, improved aeration in the right lower lobe. Otherwise, bilateral interstitial and airspace disease. compression. . Lucas Dong M.D. DR: Charlotte JOB#: [id number] CC:
--- NOTE | 2018-11-27 11:11 | Cardiology Progress Note ---
Assessment/Plan Assessment/Plan pacemaker pocket infection s/p pacer explantation 11/26/2018 bacteremia staph epi HTN anxiety chronic resp failure s/p trach s/p PEG thoracic aortic dissection s/p repair early 2017 [facility] [place] bilateral infiltrates (patricia performed 11/27/2018 neg for vegetation ) repeat cx so far neg as of 11/27/2018 i personally reviewed echo last week no vegetation noted there is AR n TR nto sig s/p pacer explanted by dr fleming keep on iv abx sedated cxr report noted imporved bilat infiltrates patricia today staff have obtain consent from grand mother i personally discussed with her today as well risk and possible complication discussed d/w anesthesiologist Subjective ROS Limited/Unobtainable: Yes Subjective on vent in icu sedated Objective Last 24 Hour Vital Signs Date Time Temp Pulse Resp B/P (MAP) Pulse Ox O2 Delivery O2 Flow Rate FiO2 11/27/18 10:32 54 20 75 11/27/18 10:00 61 20 138/60 (86) 91 11/27/18 09:59 63 20 134/62 (86) 90 11/27/18 09:30 64 20 142/71 (94) 94 11/27/18 09:00 65 20 151/61 (91) 92 11/27/18 08:49 65 22 75 11/27/18 08:33 65 170/71 11/27/18 08:30 65 20 170/71 (104) 94 11/27/18 08:00 Mechanical Ventilator 11/27/18 08:00 99.1 69 22 175/77 (109) 95 11/27/18 07:39 97.4 11/27/18 07:30 47 20 147/60 (89) 97 11/27/18 07:22 47 20 80 11/27/18 07:09 20 Mechanical Ventilator 60.0 80 11/27/18 07:08 20 Mechanical Ventilator 80 11/27/18 07:00 20 Mechanical Ventilator 80 11/27/18 07:00 46 20 148/57 (87) 100 11/27/18 06:30 47 20 145/58 (87) 100 11/27/18 06:28 141/58 11/27/18 06:00 97.4 48 20 141/58 (85) 100 11/27/18 06:00 20 Mechanical Ventilator 80 11/27/18 05:14 54 21 80 11/27/18 05:00 59 20 149/65 (93) 99 11/27/18 05:00 20 Mechanical Ventilator 80 11/27/18 04:30 50 21 140/59 (86) 99 11/27/18 04:00 51 11/27/18 04:00 Mechanical Ventilator 11/27/18 04:00 20 Mechanical Ventilator 80 11/27/18 04:00 98.0 60 20 144/64 (90) 94 11/27/18 03:02 56 20 70 11/27/18 03:00 20 Mechanical Ventilator 80 11/27/18 03:00 101.8 60 19 139/65 (89) 100 11/27/18 02:00 102.0 58 27 138/59 (85) 94 11/27/18 02:00 20 Mechanical Ventilator 80 11/27/18 01:55 102.0 11/27/18 01:30 102.4 62 21 143/62 (89) 98 11/27/18 01:27 63 22 80 11/27/18 01:00 20 Mechanical Ventilator 80 11/27/18 01:00 62 21 135/74 (94) 94 11/27/18 00:54 20 Mechanical Ventilator 80 11/27/18 00:53 20 Mechanical Ventilator 80 11/27/18 00:30 59 20 151/65 (93) 94 11/27/18 00:00 101.3 56 20 147/64 (91) 92 11/27/18 00:00 Mechanical Ventilator 11/27/18 00:00 52 11/27/18 00:00 20 Mechanical Ventilator 80 11/26/18 23:59 148/61 11/26/18 23:30 53 20 148/61 (90) 95 11/26/18 23:00 51 20 145/61 (89) 96 11/26/18 23:00 20 Mechanical Ventilator 80 11/26/18 22:53 51 20 80 11/26/18 22:00 51 20 144/60 (88) 97 11/26/18 22:00 20 Mechanical Ventilator 90 11/26/18 21:30 51 20 137/59 (85) 96 11/26/18 21:14 50 20 100 90 11/26/18 21:00 20 Mechanical Ventilator 90 11/26/18 21:00 52 20 132/57 (82) 98 10/14/19 20:30 54 20 134/60 (84) 98 11/26/18 20:00 Mechanical Ventilator 11/26/18 20:00 20 Mechanical Ventilator 100 11/26/18 20:00 51 11/26/18 20:00 99.0 52 20 140/58 (85) 94 11/26/18 19:30 51 20 134/57 (82) 96 11/26/18 19:06 53 20 95 100 53 20 100 11/26/18 19:00 55 19 145/64 (91) 95 11/26/18 18:57 21 Mechanical Ventilator 100 11/26/18 18:00 58 21 140/57 (84) 95 11/26/18 18:00 21 100 11/26/18 17:27 145/72 11/26/18 17:10 51 20 100 11/26/18 17:00 45 20 145/72 (96) 92 11/26/18 17:00 20 Mechanical Ventilator 100 11/26/18 16:00 Mechanical Ventilator 11/26/18 16:00 54 11/26/18 16:00 20 100 11/26/18 16:00 96.6 45 20 143/56 (85) 90 11/26/18 15:01 59 20 100 11/26/18 15:00 56 20 143/64 (90) 90 11/26/18 15:00 21 Mechanical Ventilator 60 11/26/18 14:30 52 20 128/78 (95) 96 11/26/18 14:00 69 19 190/83 (118) 88 11/26/18 14:00 20 Mechanical Ventilator 60.0 11/26/18 13:45 70 20 225/82 (129) 75 11/26/18 13:30 52 21 174/85 (114) 86 11/26/18 13:15 96.6 46 20 133/59 (83) 94 11/26/18 13:00 48 21 178/85 (116) 86 11/26/18 13:00 48 11/26/18 13:00 Mechanical Ventilator 11/26/18 13:00 20 Mechanical Ventilator 60 11/26/18 13:00 48 98 11/26/18 12:59 61 20 100 11/26/18 11:30 Ambu-Bag 11/26/18 11:16 60 20 60 General Appearance: on vent, patient on isolation Cardiovascular: normal rate Abdomen: soft Extremities: no swelling Intake and Output 10/14/19 10/15/19 19:00 07:00 Intake Total 1165.500 ml 1104.0 ml Output Total 270 ml 395 ml Balance 895.500 ml 709.0 ml Intake Free Water 60 ml 100 ml IV Total 815.500 ml 594.0 ml Tube Feeding 240 ml 160 ml Blood Product 250 ml Other 50 ml Output Urine Total 270 ml 395 ml Laboratory Tests Test 11/27/18 04:45 White Blood Count 15.1 K/UL (4.8-10.8) H Red Blood Count 2.74 M/UL (4.20-5.40) L Hemoglobin 7.8 G/DL (12.0-16.0) L Hematocrit 24.4 % (37.0-47.0) L Mean Corpuscular Volume 89 FL (80-99) Mean Corpuscular Hemoglobin 28.5 PG (27.0-31.0) Mean Corpuscular Hemoglobin Concent 32.1 G/DL (32.0-36.0) Red Cell Distribution Width 15.0 % (11.6-14.8) H Platelet Count 336 K/UL (150-450) Mean Platelet Volume 5.4 FL (6.5-10.1) L Neutrophils (%) (Auto) % (45.0-75.0) Lymphocytes (%) (Auto) % (20.0-45.0) Monocytes (%) (Auto) % (1.0-10.0) Eosinophils (%) (Auto) % (0.0-3.0) Basophils (%) (Auto) % (0.0-2.0) Differential Total Cells Counted 100 Neutrophils % (Manual) 73 % (45-75) Lymphocytes % (Manual) 15 % (20-45) L Monocytes % (Manual) 8 % (1-10) Eosinophils % (Manual) 4 % (0-3) H Basophils % (Manual) 0 % (0-2) Band Neutrophils 0 % (0-8) Platelet Estimate Adequate Platelet Morphology Normal Anisocytosis 1+ Sodium Level 143 MMOL/L (136-145) Potassium Level 3.7 MMOL/L (3.5-5.1) Chloride Level 111 MMOL/L (98-107) H Carbon Dioxide Level 22 MMOL/L (21-32) Anion Gap 10 mmol/L (5-15) Blood Urea Nitrogen 44 mg/dL (7-18) H Creatinine 1.6 MG/DL (0.55-1.30) H Estimat Glomerular Filtration Rate 34.7 mL/min (>60) Glucose Level 87 MG/DL (74-106) Calcium Level 8.4 MG/DL (8.5-10.1) L Microbiology Date/Time Source Procedure Growth Status 11/24/18 20:36 Blood Blood Culture - Preliminary NO GROWTH AFTER 48 HOURS Resulted 11/24/18 20:30 Blood Blood Culture - Preliminary NO GROWTH AFTER 48 HOURS Resulted 11/26/18 13:34 Other(Specify in comment) Catheter Tip Culture - Preliminary NO GROWTH Resulted 11/26/18 13:26 Other(Specify in comment) Gram Stain Pending Resulted 11/26/18 13:26 Other(Specify in comment) Aerobic Culture - Preliminary NO GROWTH Resulted 11/26/18 13:26 Other(Specify in comment) Anaerobic Culture Pending Resulted 11/26/18 13:28 Chest Gram Stain Pending Resulted 11/26/18 13:28 Chest Aerobic Culture - Preliminary NO GROWTH Resulted 11/26/18 13:28 Chest Anaerobic Culture Pending Resulted Carlos Rooney MD Nov 27, 2018 11:11
--- NOTE | 2018-11-27 11:12 | Pre-Procedure Note/Attestation ---
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 I attest that, if there was a reasonable possibility of needing a blood transfusion, the patient (or the patient's legal sales representative uniforms) was given the [facility] standardized written summary, pursuant to the Deo Cash Blood Safety Act ([place] Health and Safety Code # 1645, as amended). I attest that I re-evaluated the patient just prior to the surgery and that there has been no change in the patient's H&P, except as documented below: Carlos Rooney MD Nov 27, 2018 11:12
--- NOTE | 2018-11-27 11:33 | Brief Operative Note ---
Immediate Post Operative Note Operative Note Chief Complaint: bacteremia Pre-op Diagnosis: bactermia Procedure: transesophageal echo , color flow doppler imaging Post-op Diagnosis: bacteremia, no evidence for vegetation on any of the valves Surgeon: josé miguel Anesthesiologist: ashley michaels Anesthesia: moderate sedation Specimen: none Complications: none Condition: stable Fluids: none Estimated Blood Loss: none Drains: none Implant(s) used?: No Carlos Rooney MD Nov 27, 2018 11:33
--- NOTE | 2018-11-27 11:49 | Immediate Post-Op Evaluation ---
Immediate Post-Op Evalulation Immediate Post-Op Evalulation Procedure: patricia Date of Evaluation: Nov 27, 2018 Time of Evaluation: 11:47 IV Fluids: 150ml 0.9ns Blood Products: none Estimated Blood Loss: negligible Blood Pressure Systolic: 120 Blood Pressure Diastolic: 49 Pulse Rate: 49 Respiratory Rate: 20 O2 Sat by Pulse Oximetry: 98 Temperature (Fahrenheit): 99.1 Pain Score (1-10): 0 Nausea: No Vomiting: No Complications none Patient Status: awake, reacts, patent, ventilated Hydration Status: adequate Drug: Sissy Henriquez MD Nov 27, 2018 11:49
--- NOTE | 2018-11-27 11:51 | 48 Hour Post Anesthesia Eval ---
Post Anesthesia Evaluation Procedure: patricia Date of Evaluation: Nov 27, 2018 Time of Evaluation: 11:49 Blood Pressure Systolic: 148 0: 71 Pulse Rate: 49 Respiratory Rate: 20 Temperature (Fahrenheit): 99.1 O2 Sat by Pulse Oximetry: 97 Airway: patent Nausea: No Vomiting: No Pain Intensity: 0 Hydration Status: adequate Cardiopulmonary Status: stable Mental Status/LOC: patient returned to baseline Post-Anesthesia Complications: none Follow-up care needed: N/A Sissy Alejandre MD Nov 27, 2018 11:51
--- NOTE | 2018-11-27 12:09 | Infectious Diseases Prog Note ---
Assessment/Plan Assessment/Plan Assessment: Acute hypoxic respiratory failure s/p intubation 11/23- ?ARDS Fever Leukocytosis, recurrent- increased, now improving -u.a wbc 5-10, nit neg, leuk +1 PPM site (pocket) infection (redness and pain, bacteremia) and likely pocket abscess- no vegetation seen on ABBIE -11/27 SP ABBIE: no evidence for vegetation on any of the valves -11/26 SP PPM removal: -OR findings:The fibrous capsule enclosing the generator was then opened and there was a [id number] amount of yellowish fluid drainage. The generator was then removed.Atrial and ventricular leads were detached. The necrotic tissue of the pocket was then removed and the pocket was flushed with an antibiotic solution. -Capsule, wound tissue and lead tip cx: NTD -2d echo: no vegetation seen -US chest: 4.6 x 3.4 x 0.9 cm hypoechoic/anechoic area overlying left chest pacemaker power pack. This could represent either a discrete fluid collection or a focal area of very edematous tissue. Infected fluid pocket also possible. Gram positive bacteremia- real bacteremia- 2ry to above -11/18 Bcx 3/4 S. epi; 11/20 Bcx neg; 11/24 Bcx NTD Probable PNA -11/26 CXR: Slightly improved aeration of the right lung base. Otherwise mostly stable bilateral interstitial and airspace disease -CXR: etrocardiac consolidation, possibly pneumonia. Right basilar atelectasis -sp cx MRSA, ABC (I Ceftriaxone; otherwise S) Recent aspiration PNA and UTI (late September 2018) -u/a wbc 5-10, nit +, leuk +1; ucx >100k Enterobacter aerogenes (R ancef, nitro; otherwise S) -sp cx MRSA HTN anxiety chronic resp failure s/p trach s/p PEG thoracic aortic dissection s/p repair early 2017 [place] resident Plan: -Continue empiric IV Vancomycin #10 for S. epi bacteremia, PPM site infection and abscess and PNA - guidelines favor treatment for endocarditis in the setting of +pocket infection and bacteremia with Staph; expected end date 12/31/18; weekly CBC, BMP , Vanco through -in terms of device re-implantation, will await patient afebrile for at least 48hrs, leukocytosis resolved and repeat Bcx 11/27 (after device removal) negative in 72 hours -Continue empiric Zosyn #10/14 for PNA -f.u cx -Monitor CBC/CMP, temperatures -Cards f/u -f/u repeat Bcx x2, OR cultures -Bcx x2 Thank you for this consultation. Will continue to follow along with you. Subjective Allergies: Coded Allergies: No Known Allergies (Unverified , 10/10/17) Subjective Tm 100.1 wbc remains at 16 for pacemaker removal today Objective Vital Signs Last 24 Hour Vital Signs Date Time Temp Pulse Resp B/P (MAP) Pulse Ox O2 Delivery O2 Flow Rate FiO2 11/27/18 10:32 54 20 75 11/27/18 10:00 61 20 138/60 (86) 91 11/27/18 09:59 63 20 134/62 (86) 90 11/27/18 09:30 64 20 142/71 (94) 94 11/27/18 09:00 65 20 151/61 (91) 92 11/27/18 08:49 65 22 75 11/27/18 08:33 65 170/71 11/27/18 08:30 65 20 170/71 (104) 94 11/27/18 08:00 Mechanical Ventilator 11/27/18 08:00 99.1 69 22 175/77 (109) 95 11/27/18 07:39 97.4 11/27/18 07:30 47 20 147/60 (89) 97 11/27/18 07:22 47 20 80 11/27/18 07:09 20 Mechanical Ventilator 60.0 80 11/27/18 07:08 20 Mechanical Ventilator 80 11/27/18 07:00 20 Mechanical Ventilator 80 11/27/18 07:00 46 20 148/57 (87) 100 11/27/18 06:30 47 20 145/58 (87) 100 11/27/18 06:28 141/58 11/27/18 06:00 97.4 48 20 141/58 (85) 100 11/27/18 06:00 20 Mechanical Ventilator 80 11/27/18 05:14 54 21 80 11/27/18 05:00 59 20 149/65 (93) 99 11/27/18 05:00 20 Mechanical Ventilator 80 11/27/18 04:30 50 21 140/59 (86) 99 11/27/18 04:00 51 11/27/18 04:00 Mechanical Ventilator 11/27/18 04:00 20 Mechanical Ventilator 80 11/27/18 04:00 98.0 60 20 144/64 (90) 94 11/27/18 03:02 56 20 70 11/27/18 03:00 20 Mechanical Ventilator 80 11/27/18 03:00 101.8 60 19 139/65 (89) 100 11/27/18 02:00 102.0 58 27 138/59 (85) 94 11/27/18 02:00 20 Mechanical Ventilator 80 11/27/18 01:55 102.0 11/27/18 01:30 102.4 62 21 143/62 (89) 98 11/27/18 01:27 63 22 80 11/27/18 01:00 20 Mechanical Ventilator 80 11/27/18 01:00 62 21 135/74 (94) 94 11/27/18 00:54 20 Mechanical Ventilator 80 11/27/18 00:53 20 Mechanical Ventilator 80 11/27/18 00:30 59 20 151/65 (93) 94 11/27/18 00:00 101.3 56 20 147/64 (91) 92 11/27/18 00:00 Mechanical Ventilator 11/27/18 00:00 52 11/27/18 00:00 20 Mechanical Ventilator 80 11/26/18 23:59 148/61 11/26/18 23:30 53 20 148/61 (90) 95 11/26/18 23:00 51 20 145/61 (89) 96 11/26/18 23:00 20 Mechanical Ventilator 80 11/26/18 22:53 51 20 80 11/26/18 22:00 51 20 144/60 (88) 97 11/26/18 22:00 20 Mechanical Ventilator 90 11/26/18 21:30 51 20 137/59 (85) 96 11/26/18 21:14 50 20 100 90 11/26/18 21:00 20 Mechanical Ventilator 90 11/26/18 21:00 52 20 132/57 (82) 98 11/26/18 20:30 54 20 134/60 (84) 98 11/26/18 20:00 Mechanical Ventilator 11/26/18 20:00 20 Mechanical Ventilator 100 11/26/18 20:00 51 11/26/18 20:00 99.0 52 20 140/58 (85) 94 11/26/18 19:30 51 20 134/57 (82) 96 11/26/18 19:06 53 20 95 100 53 20 100 11/26/18 19:00 55 19 145/64 (91) 95 11/26/18 18:57 21 Mechanical Ventilator 100 11/26/18 18:00 58 21 140/57 (84) 95 11/26/18 18:00 21 100 11/26/18 17:27 145/72 11/26/18 17:10 51 20 100 11/26/18 17:00 45 20 145/72 (96) 92 11/26/18 17:00 20 Mechanical Ventilator 100 11/26/18 16:00 Mechanical Ventilator 11/26/18 16:00 54 11/26/18 16:00 20 100 11/26/18 16:00 96.6 45 20 143/56 (85) 90 11/26/18 15:01 59 20 100 11/26/18 15:00 56 20 143/64 (90) 90 11/26/18 15:00 21 Mechanical Ventilator 60 11/26/18 14:30 52 20 128/78 (95) 96 11/26/18 14:00 69 19 190/83 (118) 88 11/26/18 14:00 20 Mechanical Ventilator 60.0 11/26/18 13:45 70 20 225/82 (129) 75 11/26/18 13:30 52 21 174/85 (114) 86 11/26/18 13:15 96.6 46 20 133/59 (83) 94 11/26/18 13:00 48 21 178/85 (116) 86 11/26/18 13:00 48 11/26/18 13:00 Mechanical Ventilator 11/26/18 13:00 20 Mechanical Ventilator 60 11/26/18 13:00 48 98 11/26/18 12:59 61 20 100 Height (Feet): 5 Height (Inches): 5.00 Weight (Pounds): 147 Objective HEENT: Eyes were normal. Pupils were round, equal, and reactive to light. Sclerae were white. Conjunctivae were pink. ENT, mucous membranes were not dehydrated. NECK: Supple. No lymphadenopathy. LUNGS: Clear. HEART: PMI was in fifth left intercostal space in midclavicular line. There was normal S1 and normal S2. There was no murmur. No arrhythmia. No S3. No S4. No pericardial rub. ABDOMEN: Soft, nontender without organomegaly. There were no masses palpable. Normal bowel sounds without bruits. There was no guarding. No rebound tenderness. No CVA tenderness. EXTREMITIES: No cyanosis, clubbing, and no edema. Extremities were warm. Microbiology Date/Time Source Procedure Growth Status 11/24/18 20:36 Blood Blood Culture - Preliminary NO GROWTH AFTER 48 HOURS Resulted 11/24/18 20:30 Blood Blood Culture - Preliminary NO GROWTH AFTER 48 HOURS Resulted 11/26/18 13:34 Other(Specify in comment) Catheter Tip Culture - Preliminary NO GROWTH Resulted 11/26/18 13:26 Other(Specify in comment) Gram Stain Pending Resulted 11/26/18 13:26 Other(Specify in comment) Aerobic Culture - Preliminary NO GROWTH Resulted 11/26/18 13:26 Other(Specify in comment) Anaerobic Culture Pending Resulted 11/26/18 13:28 Chest Gram Stain Pending Resulted 11/26/18 13:28 Chest Aerobic Culture - Preliminary NO GROWTH Resulted 11/26/18 13:28 Chest Anaerobic Culture Pending Resulted Laboratory Tests Test 11/27/18 04:45 White Blood Count 15.1 K/UL (4.8-10.8) H Red Blood Count 2.74 M/UL (4.20-5.40) L Hemoglobin 7.8 G/DL (12.0-16.0) L Hematocrit 24.4 % (37.0-47.0) L Mean Corpuscular Volume 89 FL (80-99) Mean Corpuscular Hemoglobin 28.5 PG (27.0-31.0) Mean Corpuscular Hemoglobin Concent 32.1 G/DL (32.0-36.0) Red Cell Distribution Width 15.0 % (11.6-14.8) H Platelet Count 336 K/UL (150-450) Mean Platelet Volume 5.4 FL (6.5-10.1) L Neutrophils (%) (Auto) % (45.0-75.0) Lymphocytes (%) (Auto) % (20.0-45.0) Monocytes (%) (Auto) % (1.0-10.0) Eosinophils (%) (Auto) % (0.0-3.0) Basophils (%) (Auto) % (0.0-2.0) Differential Total Cells Counted 100 Neutrophils % (Manual) 73 % (45-75) Lymphocytes % (Manual) 15 % (20-45) L Monocytes % (Manual) 8 % (1-10) Eosinophils % (Manual) 4 % (0-3) H Basophils % (Manual) 0 % (0-2) Band Neutrophils 0 % (0-8) Platelet Estimate Adequate Platelet Morphology Normal Anisocytosis 1+ Sodium Level 143 MMOL/L (136-145) Potassium Level 3.7 MMOL/L (3.5-5.1) Chloride Level 111 MMOL/L (98-107) H Carbon Dioxide Level 22 MMOL/L (21-32) Anion Gap 10 mmol/L (5-15) Blood Urea Nitrogen 44 mg/dL (7-18) H Creatinine 1.6 MG/DL (0.55-1.30) H Estimat Glomerular Filtration Rate 34.7 mL/min (>60) Glucose Level 87 MG/DL (74-106) Calcium Level 8.4 MG/DL (8.5-10.1) L Current Medications Medications (Trade) Dose Ordered Sig/Penny Route PRN Reason Start Time Stop Time Status Last Admin Dose Admin Acetaminophen (Tylenol) 650 mg Q4H PRN ORAL Mild Pain/Temp > 100.5 11/23/18 14:00 12/19/18 13:59 11/27/18 08:32 Acetaminophen (Tylenol) 650 mg Q4H PRN ORAL Mild Pain (Pain Scale 1-3) 11/27/18 11:00 11/27/18 21:00 Acetaminophen/ Codeine Phosphate (Tylenol #3) 1 tab Q6H PRN GT Moderate Pain (Pain Scale 4-6) 11/26/18 13:00 12/03/18 12:59 Al Hydroxide/Mg Hydroxide (Mylanta) 15 ml Q1H PRN ORAL gi upset 11/27/18 11:00 11/27/18 21:00 Albuterol/ Ipratropium (Albuterol/ Ipratropium) 3 ml Q4HRT PRN HHN sob 11/25/18 07:00 11/30/18 06:59 Amlodipine Besylate (Norvasc) 10 mg DAILY GT 11/24/18 09:00 12/19/18 08:59 11/27/18 08:33 Atropine Sulfate (Atropine) 0.5 mg Q5M PRN IV bpm less than 45 11/27/18 11:00 11/27/18 21:00 Diphenhydramine HCl (Benadryl) 25 mg Q15M PRN IVP Itching 11/27/18 11:00 11/27/18 21:00 Diphenhydramine HCl (Benadryl) 25 mg Q6H PRN IVP Itching 11/23/18 14:00 12/21/18 13:59 Fentanyl Citrate (Sublimaze 100 mcg/2 mL) 25 mcg Q10M PRN IV Moderate Pain (Pain Scale 4-6) 11/27/18 11:00 11/27/18 21:00 Fentanyl Citrate 2500 mcg/Sodium Chloride 250 ml @ 0 mls/hr Q24H IV 11/23/18 17:00 11/30/18 16:59 11/27/18 07:09 Haloperidol Lactate (Haldol) 5 mg Q6H PRN IM Agitation 11/24/18 00:30 12/24/18 00:29 Heparin Sodium (Porcine) (Heparin 5000 units/ml) 5,000 units EVERY 12 HOURS SUBQ 11/23/18 21:00 12/19/18 08:59 11/27/18 08:34 Hydralazine HCl (Apresoline) 5 mg Q30M PRN IV SBP>160 OR___/DBP>90 OR___ 11/27/18 11:00 11/27/18 21:00 Hydralazine HCl (Apresoline) 10 mg Q6HR ORAL 11/26/18 18:00 12/26/18 17:59 11/27/18 06:28 Lansoprazole (Prevacid) 30 mg DAILY GT 11/24/18 09:00 12/19/18 08:59 11/27/18 08:32 Lorazepam (Ativan 2mg/ml 1ml) 1 mg Q4H PRN IV For Anxiety 11/24/18 10:15 12/01/18 06:14 11/27/18 01:25 Midazolam HCl (Versed 2mg/2ml vial) 1 mg Q15M PRN IVP For Anxiety 11/27/18 11:00 11/27/18 21:00 Ondansetron HCl (Zofran) 4 mg Q8H PRN IM Nausea & Vomiting 11/23/18 14:00 12/19/18 13:59 Oxycodone/ Acetaminophen (Percocet 10325) 1 tab Q4H PRN ORAL Severe Pain (Pain Scale 7-10) 11/23/18 14:00 11/29/18 13:59 Piperacillin Sod/ Tazobactam Sod 3.375 gm/Sodium Chloride 110 ml @ 27.5 mls/hr Q8H IVPB 11/24/18 08:00 12/01/18 07:59 11/27/18 08:31 Sodium Chloride 1,000 ml @ 10 mls/hr Q24H IVLG 11/27/18 10:59 11/27/18 12:58 Thiamine HCl (Vitamin B1) 100 mg DAILY GT 11/24/18 09:00 12/19/18 08:59 11/27/18 08:32 Vancomycin HCl (Vanco rx to dose) 1 ea DAILY PRN MISC Per rx protocol 11/25/18 07:45 12/25/18 07:44 Vancomycin HCl 750 mg/Sodium Chloride 275 ml @ 183.333 mls/hr Q24H IVPB 11/26/18 08:00 12/01/18 07:59 11/27/18 09:22 Doreen Nino M.D. Nov 27, 2018 12:09
--- NOTE | 2018-11-27 14:32 | Hematology/Onc Progress Note ---
Assessment/Plan Assessment/Plan # Anemia of chronic disease (or of iron deficiency) due to underlying chronic medical issues, multifactorial --> Anemia workup has been ordered, rule out gi bleed --> No evidence of hemolysis is noted, peripheral smear has been reviewed. --> Hgb goal >7. Transfuse prn. --> Epogen or iron at this time is not particularly indicated --> Medications have been reviewed --> low threshold for gi evaluation in case has occult + # Leukocytosis, recurrent- increased, now improving --> PPM site (pocket) infection (redness and pain, bacteremia) and likely pocket abscess- no vegetation seen on ABBIE --> is s'p pm removal and also pocket infection is better # Acute hypoxic respiratory failure s/p intubation 11/23- ?ARDS --> on vent/trach # Gram positive bacteremia- real bacteremia- 2ry to above and probable PNA --> per id care # JAVIER initially >2 --> now improved # Dypshagia s/p peg # thoracic aortic dissection s/p repair early 2017 # [place] resident # Dvt ppx scds The timing of this note does not necessarily reflect the time of the patient was seen. Greatly appreciate consultation. Subjective Constitutional: Denies: no symptoms, chills, fever, malaise, weakness, other HEENT: Denies: no symptoms, eye pain, blurred vision, tearing, double vision, ear pain, ear discharge, nose pain, nose congestion, throat pain, throat swelling, mouth pain, mouth swelling, other Cardiovascular: Denies: no symptoms, chest pain, edema, irregular heart rate, lightheadedness, palpitations, syncope, other Gastrointestinal/Abdominal: Denies: no symptoms, abdomen distended, abdominal pain, black stools, tarry stools, blood in stool, constipated, diarrhea, difficulty swallowing, nausea, poor appetite, poor fluid intake, rectal bleeding , vomiting, other Allergies: Coded Allergies: No Known Allergies (Unverified , 10/10/17) Subjective 11/27: PRBC was given yest, no events, seen by cards, no bleeding Objective Objective Current Medications Medications (Trade) Dose Ordered Sig/Penny Route PRN Reason Start Time Stop Time Status Last Admin Dose Admin Acetaminophen (Tylenol) 650 mg Q4H PRN ORAL Mild Pain/Temp > 100.5 11/23/18 14:00 12/19/18 13:59 11/27/18 08:32 Acetaminophen (Tylenol) 650 mg Q4H PRN ORAL Mild Pain (Pain Scale 1-3) 11/27/18 11:00 11/27/18 21:00 Acetaminophen/ Codeine Phosphate (Tylenol #3) 1 tab Q6H PRN GT Moderate Pain (Pain Scale 4-6) 11/26/18 13:00 12/03/18 12:59 Al Hydroxide/Mg Hydroxide (Mylanta) 15 ml Q1H PRN ORAL gi upset 11/27/18 11:00 11/27/18 21:00 Albuterol/ Ipratropium (Albuterol/ Ipratropium) 3 ml Q4HRT PRN HHN sob 11/25/18 07:00 11/30/18 06:59 Amlodipine Besylate (Norvasc) 10 mg DAILY GT 11/24/18 09:00 12/19/18 08:59 11/27/18 08:33 Atropine Sulfate (Atropine) 0.5 mg Q5M PRN IV bpm less than 45 11/27/18 11:00 11/27/18 21:00 Diphenhydramine HCl (Benadryl) 25 mg Q15M PRN IVP Itching 11/27/18 11:00 11/27/18 21:00 Diphenhydramine HCl (Benadryl) 25 mg Q6H PRN IVP Itching 11/23/18 14:00 12/21/18 13:59 Fentanyl Citrate (Sublimaze 100 mcg/2 mL) 25 mcg Q10M PRN IV Moderate Pain (Pain Scale 4-6) 11/27/18 11:00 11/27/18 21:00 Fentanyl Citrate 2500 mcg/Sodium Chloride 250 ml @ 0 mls/hr Q24H IV 11/23/18 17:00 11/30/18 16:59 11/27/18 14:03 Haloperidol Lactate (Haldol) 5 mg Q6H PRN IM Agitation 11/24/18 00:30 12/24/18 00:29 Heparin Sodium (Porcine) (Heparin 5000 units/ml) 5,000 units EVERY 12 HOURS SUBQ 11/23/18 21:00 12/19/18 08:59 11/27/18 08:34 Hydralazine HCl (Apresoline) 5 mg Q30M PRN IV SBP>160 OR___/DBP>90 OR___ 11/27/18 11:00 11/27/18 21:00 Hydralazine HCl (Apresoline) 10 mg Q6HR ORAL 11/26/18 18:00 12/26/18 17:59 11/27/18 12:22 Lansoprazole (Prevacid) 30 mg DAILY GT 11/24/18 09:00 12/19/18 08:59 11/27/18 08:32 Lorazepam (Ativan 2mg/ml 1ml) 1 mg Q4H PRN IV For Anxiety 11/24/18 10:15 12/01/18 06:14 11/27/18 01:25 Midazolam HCl (Versed 2mg/2ml vial) 1 mg Q15M PRN IVP For Anxiety 11/27/18 11:00 11/27/18 21:00 Ondansetron HCl (Zofran) 4 mg Q8H PRN IM Nausea & Vomiting 11/23/18 14:00 12/19/18 13:59 Oxycodone/ Acetaminophen (Percocet 10/325) 1 tab Q4H PRN ORAL Severe Pain (Pain Scale 7-10) 11/23/18 14:00 11/29/18 13:59 Piperacillin Sod/ Tazobactam Sod 3.375 gm/Sodium Chloride 110 ml @ 27.5 mls/hr Q8H IVPB 11/24/18 08:00 12/01/18 07:59 11/27/18 08:31 Thiamine HCl (Vitamin B1) 100 mg DAILY GT 11/24/18 09:00 12/19/18 08:59 11/27/18 08:32 Vancomycin HCl (Vanco rx to dose) 1 ea DAILY PRN MISC Per rx protocol 11/25/18 07:45 12/25/18 07:44 Vancomycin HCl 750 mg/Sodium Chloride 275 ml @ 183.333 mls/hr Q24H IVPB 11/26/18 08:00 12/01/18 07:59 11/27/18 09:22 Last 24 Hour Vital Signs Date Time Temp Pulse Resp B/P (MAP) Pulse Ox O2 Delivery O2 Flow Rate FiO2 11/27/18 14:03 24 Mechanical Ventilator 70 11/27/18 12:45 54 20 70 10/15/19 12:22 142/66 11/27/18 12:00 Mechanical Ventilator 11/27/18 11:51 49 20 97 11/27/18 11:49 49 20 98 11/27/18 10:32 54 20 75 11/27/18 10:00 61 20 138/60 (86) 91 11/27/18 09:59 63 20 134/62 (86) 90 11/27/18 09:30 64 20 142/71 (94) 94 11/27/18 09:02 99.1 11/27/18 09:00 65 20 151/61 (91) 92 11/27/18 08:49 65 22 75 11/27/18 08:33 65 170/71 11/27/18 08:30 65 20 170/71 (104) 94 11/27/18 08:00 Mechanical Ventilator 11/27/18 08:00 99.1 69 22 175/77 (109) 95 11/27/18 07:39 97.4 11/27/18 07:30 47 20 147/60 (89) 97 11/27/18 07:22 47 20 80 11/27/18 07:09 20 Mechanical Ventilator 60.0 80 11/27/18 07:08 20 Mechanical Ventilator 80 11/27/18 07:00 20 Mechanical Ventilator 80 11/27/18 07:00 46 20 148/57 (87) 100 11/27/18 06:30 47 20 145/58 (87) 100 11/27/18 06:28 141/58 11/27/18 06:00 97.4 48 20 141/58 (85) 100 11/27/18 06:00 20 Mechanical Ventilator 80 11/27/18 05:14 54 21 80 11/27/18 05:00 59 20 149/65 (93) 99 11/27/18 05:00 20 Mechanical Ventilator 80 11/27/18 04:30 50 21 140/59 (86) 99 11/27/18 04:00 51 11/27/18 04:00 Mechanical Ventilator 11/27/18 04:00 20 Mechanical Ventilator 80 11/27/18 04:00 98.0 60 20 144/64 (90) 94 11/27/18 03:02 56 20 70 11/27/18 03:00 20 Mechanical Ventilator 80 11/27/18 03:00 101.8 60 19 139/65 (89) 100 11/27/18 02:00 102.0 58 27 138/59 (85) 94 11/27/18 02:00 20 Mechanical Ventilator 80 11/27/18 01:30 102.4 62 21 143/62 (89) 98 11/27/18 01:27 63 22 80 11/27/18 01:00 20 Mechanical Ventilator 80 11/27/18 01:00 62 21 135/74 (94) 94 11/27/18 00:54 20 Mechanical Ventilator 80 11/27/18 00:53 20 Mechanical Ventilator 80 11/27/18 00:30 59 20 151/65 (93) 94 11/27/18 00:00 101.3 56 20 147/64 (91) 92 11/27/18 00:00 Mechanical Ventilator 11/27/18 00:00 52 11/27/18 00:00 20 Mechanical Ventilator 80 11/26/18 23:59 148/61 11/26/18 23:30 53 20 148/61 (90) 95 11/26/18 23:00 51 20 145/61 (89) 96 11/26/18 23:00 20 Mechanical Ventilator 80 11/26/18 22:53 51 20 80 11/26/18 22:00 51 20 144/60 (88) 97 11/26/18 22:00 20 Mechanical Ventilator 90 11/26/18 21:30 51 20 137/59 (85) 96 11/26/18 21:14 50 20 100 90 11/26/18 21:00 20 Mechanical Ventilator 90 11/26/18 21:00 52 20 132/57 (82) 98 11/26/18 20:30 54 20 134/60 (84) 98 11/26/18 20:00 Mechanical Ventilator 11/26/18 20:00 20 Mechanical Ventilator 100 11/26/18 20:00 51 11/26/18 20:00 99.0 52 20 140/58 (85) 94 11/26/18 19:30 51 20 134/57 (82) 96 11/26/18 19:06 53 20 95 100 53 20 100 11/26/18 19:00 55 19 145/64 (91) 95 11/26/18 18:57 21 Mechanical Ventilator 100 11/26/18 18:00 58 21 140/57 (84) 95 11/26/18 18:00 21 100 11/26/18 17:27 145/72 11/26/18 17:10 51 20 100 11/26/18 17:00 45 20 145/72 (96) 92 11/26/18 17:00 20 Mechanical Ventilator 100 11/26/18 16:00 Mechanical Ventilator 11/26/18 16:00 54 11/26/18 16:00 20 100 11/26/18 16:00 96.6 45 20 143/56 (85) 90 11/26/18 15:01 59 20 100 11/26/18 15:00 56 20 143/64 (90) 90 11/26/18 15:00 21 Mechanical Ventilator 60 11/26/18 14:30 52 20 128/78 (95) 96 11/26/18 14:00 69 19 190/83 (118) 88 11/26/18 14:00 20 Mechanical Ventilator 60.0 11/26/18 13:45 70 20 225/82 (129) 75 11/26/18 13:30 52 21 174/85 (114) 86 11/26/18 13:15 96.6 46 20 133/59 (83) 94 11/26/18 13:00 48 21 178/85 (116) 86 11/26/18 13:00 48 11/26/18 13:00 Mechanical Ventilator 11/26/18 13:00 20 Mechanical Ventilator 60 11/26/18 13:00 48 98 11/26/18 12:59 61 20 100 11/26/18 11:30 Ambu-Bag 11/26/18 11:16 60 20 60 11/26/18 11:00 61 19 132/68 (89) 94 11/26/18 11:00 132/68 11/26/18 11:00 20 Mechanical Ventilator 60 11/26/18 10:43 98.7 60 20 124/69 (87) 93 11/26/18 10:00 18 Mechanical Ventilator 70 11/26/18 10:00 60 18 137/59 (85) 93 11/26/18 09:45 99.1 60 17 137/61 (86) 93 11/26/18 09:13 63 20 60 11/26/18 09:09 66 149/65 11/26/18 09:08 62 149/65 11/26/18 09:01 21 Mechanical Ventilator 45.0 60 11/26/18 09:00 61 18 149/65 (93) 94 11/26/18 08:00 Mechanical Ventilator 11/26/18 08:00 63 20 144/54 (84) 95 11/26/18 08:00 20 Mechanical Ventilator 70 11/26/18 08:00 65 11/26/18 07:48 176/68 11/26/18 07:24 70 21 60 11/26/18 07:00 100.4 60 20 156/59 (91) 99 11/26/18 07:00 20 Mechanical Ventilator 70 11/26/18 06:00 98.4 60 20 159/59 (92) 100 11/26/18 06:00 20 Mechanical Ventilator 70 11/26/18 05:00 60 20 70 11/26/18 05:00 20 Mechanical Ventilator 70 11/26/18 05:00 60 20 152/58 (89) 100 11/26/18 04:00 97.8 63 20 152/68 (96) 97 11/26/18 04:00 62 11/26/18 04:00 Mechanical Ventilator 11/26/18 04:00 20 Mechanical Ventilator 80 11/26/18 03:58 170/74 11/26/18 03:14 60 20 80 11/26/18 03:00 62 20 165/61 (95) 100 11/26/18 03:00 20 Mechanical Ventilator 80 11/26/18 02:32 20 Mechanical Ventilator 45.0 90 11/26/18 02:31 20 Mechanical Ventilator 90 11/26/18 02:00 60 20 151/59 (89) 100 11/26/18 02:00 20 Mechanical Ventilator 90 11/26/18 01:00 20 Mechanical Ventilator 90 11/26/18 01:00 63 20 139/54 (82) 100 11/26/18 00:42 63 20 90 11/26/18 00:00 Mechanical Ventilator 11/26/18 00:00 60 11/26/18 00:00 20 Mechanical Ventilator 90 11/26/18 00:00 98.5 62 19 139/60 (86) 99 11/25/18 23:35 142/86 11/25/18 23:00 60 20 148/65 (92) 95 11/25/18 23:00 20 Mechanical Ventilator 90 11/25/18 22:44 60 20 90 11/25/18 22:30 60 20 160/69 (99) 100 11/25/18 22:00 20 Mechanical Ventilator 90 11/25/18 22:00 61 20 155/76 (102) 100 11/25/18 21:00 63 20 149/64 (92) 96 11/25/18 21:00 63 20 90 11/25/18 21:00 20 Mechanical Ventilator 90 11/25/18 20:19 20 Mechanical Ventilator 45.0 90 11/25/18 20:18 20 Mechanical Ventilator 90 11/25/18 20:03 60 136/64 11/25/18 20:02 138/64 11/25/18 20:00 98.6 60 20 138/64 (88) 99 11/25/18 20:00 Mechanical Ventilator 11/25/18 20:00 20 Mechanical Ventilator 90 11/25/18 20:00 60 11/25/18 19:11 60 20 90 11/25/18 19:00 60 20 142/64 (90) 100 11/25/18 19:00 20 Mechanical Ventilator 90 11/25/18 18:00 60 20 146/64 (91) 100 11/25/18 18:00 20 Mechanical Ventilator 90 11/25/18 17:00 98.0 60 20 149/63 (91) 100 11/25/18 17:00 20 Mechanical Ventilator 90 11/25/18 16:57 60 20 90 11/25/18 16:00 60 11/25/18 16:00 60 20 159/64 (95) 100 11/25/18 16:00 Mechanical Ventilator 11/25/18 16:00 20 Mechanical Ventilator 90 11/25/18 15:16 60 20 90 11/25/18 15:00 148/60 11/25/18 15:00 20 Mechanical Ventilator 90 11/25/18 15:00 60 20 147/60 (89) 100 Intake and Output 11/26/18 11/27/18 19:00 07:00 Intake Total 1165.500 ml 1104.0 ml Output Total 270 ml 395 ml Balance 895.500 ml 709.0 ml Intake Free Water 60 ml 100 ml IV Total 815.500 ml 594.0 ml Tube Feeding 240 ml 160 ml Blood Product 250 ml Other 50 ml Output Urine Total 270 ml 395 ml Labs Test 11/24/18 20:36 11/25/18 05:45 11/25/18 06:18 11/26/18 03:30 Vancomycin Level Trough 26.4 ug/mL (5.0-12.0) White Blood Count 16.6 K/UL (4.8-10.8) 16.7 K/UL (4.8-10.8) Red Blood Count 2.61 M/UL (4.20-5.40) 2.49 M/UL (4.20-5.40) Hemoglobin 7.5 G/DL (12.0-16.0) 7.1 G/DL (12.0-16.0) Hematocrit 23.1 % (37.0-47.0) 21.9 % (37.0-47.0) Mean Corpuscular Volume 89 FL (80-99) 88 FL (80-99) Mean Corpuscular Hemoglobin 28.6 PG (27.0-31.0) 28.4 PG (27.0-31.0) Mean Corpuscular Hemoglobin Concent 32.3 G/DL (32.0-36.0) 32.4 G/DL (32.0-36.0) Red Cell Distribution Width 15.3 % (11.6-14.8) 15.4 % (11.6-14.8) Platelet Count 356 K/UL (150-450) 356 K/UL (150-450) Mean Platelet Volume 4.8 FL (6.5-10.1) 5.2 FL (6.5-10.1) Neutrophils (%) (Auto) % (45.0-75.0) % (45.0-75.0) Lymphocytes (%) (Auto) % (20.0-45.0) % (20.0-45.0) Monocytes (%) (Auto) % (1.0-10.0) % (1.0-10.0) Eosinophils (%) (Auto) % (0.0-3.0) % (0.0-3.0) Basophils (%) (Auto) % (0.0-2.0) % (0.0-2.0) Differential Total Cells Counted 100 100 Neutrophils % (Manual) 79 % (45-75) 67 % (45-75) Lymphocytes % (Manual) 15 % (20-45) 24 % (20-45) Monocytes % (Manual) 4 % (1-10) 3 % (1-10) Eosinophils % (Manual) 1 % (0-3) 2 % (0-3) Basophils % (Manual) 1 % (0-2) 0 % (0-2) Band Neutrophils 0 % (0-8) 4 % (0-8) Platelet Estimate Adequate Adequate Platelet Morphology Normal Normal Hypochromasia 3+ Sodium Level 141 MMOL/L (136-145) 142 MMOL/L (136-145) Potassium Level 3.9 MMOL/L (3.5-5.1) 3.8 MMOL/L (3.5-5.1) Chloride Level 107 MMOL/L (98-107) 109 MMOL/L (98-107) Carbon Dioxide Level 25 MMOL/L (21-32) 24 MMOL/L (21-32) Anion Gap 9 mmol/L (5-15) 9 mmol/L (5-15) Blood Urea Nitrogen 59 mg/dL (7-18) 51 mg/dL (7-18) Creatinine 1.8 MG/DL (0.55-1.30) 1.5 MG/DL (0.55-1.30) Estimat Glomerular Filtration Rate 30.3 mL/min (>60) 37.4 mL/min (>60) Glucose Level 130 MG/DL (74-106) 89 MG/DL (74-106) Calcium Level 8.7 MG/DL (8.5-10.1) 8.7 MG/DL (8.5-10.1) Random Vancomycin Level 22.3 ug/mL 14.1 ug/mL Arterial Blood pH 7.335 (7.350-7.450) Arterial Blood Partial Pressure CO2 41.4 mmHg (35.0-45.0) Arterial Blood Partial Pressure O2 57.2 mmHg (75.0-100.0) Arterial Blood HCO3 21.6 mmol/L (22.0-26.0) Arterial Blood Oxygen Saturation 87.3 % (95-100) Arterial Blood Base Excess -4.0 (-2-2) Rojas Test Positive Nucleated Red Blood Cells 3 /100 WBC Red Blood Cell Morphology Normal Test 11/26/18 04:00 11/27/18 04:45 Arterial Blood pH 7.438 (7.350-7.450) Arterial Blood Partial Pressure CO2 32.6 mmHg (35.0-45.0) Arterial Blood Partial Pressure O2 64.8 mmHg (75.0-100.0) Arterial Blood HCO3 21.5 mmol/L (22.0-26.0) Arterial Blood Oxygen Saturation 92.8 % (95-100) Arterial Blood Base Excess -2.3 (-2-2) Rojas Test Positive White Blood Count 15.1 K/UL (4.8-10.8) Red Blood Count 2.74 M/UL (4.20-5.40) Hemoglobin 7.8 G/DL (12.0-16.0) Hematocrit 24.4 % (37.0-47.0) Mean Corpuscular Volume 89 FL (80-99) Mean Corpuscular Hemoglobin 28.5 PG (27.0-31.0) Mean Corpuscular Hemoglobin Concent 32.1 G/DL (32.0-36.0) Red Cell Distribution Width 15.0 % (11.6-14.8) Platelet Count 336 K/UL (150-450) Mean Platelet Volume 5.4 FL (6.5-10.1) Neutrophils (%) (Auto) % (45.0-75.0) Lymphocytes (%) (Auto) % (20.0-45.0) Monocytes (%) (Auto) % (1.0-10.0) Eosinophils (%) (Auto) % (0.0-3.0) Basophils (%) (Auto) % (0.0-2.0) Differential Total Cells Counted 100 Neutrophils % (Manual) 73 % (45-75) Lymphocytes % (Manual) 15 % (20-45) Monocytes % (Manual) 8 % (1-10) Eosinophils % (Manual) 4 % (0-3) Basophils % (Manual) 0 % (0-2) Band Neutrophils 0 % (0-8) Platelet Estimate Adequate Platelet Morphology Normal Anisocytosis 1+ Sodium Level 143 MMOL/L (136-145) Potassium Level 3.7 MMOL/L (3.5-5.1) Chloride Level 111 MMOL/L (98-107) Carbon Dioxide Level 22 MMOL/L (21-32) Anion Gap 10 mmol/L (5-15) Blood Urea Nitrogen 44 mg/dL (7-18) Creatinine 1.6 MG/DL (0.55-1.30) Estimat Glomerular Filtration Rate 34.7 mL/min (>60) Glucose Level 87 MG/DL (74-106) Calcium Level 8.4 MG/DL (8.5-10.1) Height (Feet): 5 Height (Inches): 5.00 Weight (Pounds): 147 Objective Gen: on vent, altered HEENT Sclerae were white. Conjunctivae were pink. ENT ++trach/vent NECK: Supple. No lymphadenopathy. LUNGS: Clear. HEART: PMI was in fifth left intercostal space in midclavicular line. ABDOMEN: Soft, nontender without organomegaly. There were no masses ++ peg EXTREMITIES: No cyanosi Evan Muhammad MD Nov 27, 2018 14:32
--- NOTE | 2018-11-27 22:42 | Cardiac Electrophysiology PN ---
Assessment/Plan Problem List: (1) Sepsis Assessment & Plan: improving (2) Bacteremia Assessment & Plan: S epi - on iv abx per ID. Pacer felt to be likely source of infection No evidence for endocarditis by ABBIE 11/27 (3) Pacemaker Assessment & Plan: Pacer pocket site infection, and s epi bacteremia- device and leads removed 11/26. will plan re-implant when ID and pulm status cleared. (4) Acute encephalopathy (5) Acute renal failure (6) Feeding by G-tube (7) Encephalopathy (8) Tracheostomy in place (9) Aortic dissection, thoracic Assessment & Plan: hx of aortic dissection repair 2018 Status: progressing, unchanged Status Narrative Mrs Gillis is a 48 yo woman with hx of thoracic aortic dissection - repair (appx 1 yr ago) , chronic type b dissection, pneumonia, chronic respiratory failure, on vent, s/p g tube and s/p pacemaker placement on 11/01 at [facility] for sick sinus syndrome. She was adm w/ pain and swelling at pacer pocket site, and has s epi bacteremia. Sputum w/ acinetobacter and MRSA Pacemaker has been removed. Rhythm - SR- SB ( 40s at times). She appears mildly improved, w/ decreased Fio2 requirements, and improved ( now elevated) BP. WBC remains 15, 000, but fevers improving Assessment/Plan Continue iv abx per ID. Wean FIo2, per pulmonary Metoprolol has been discontinued due to concerns for bradycardia. HRs now 50s. However, BP is increasing, to 150-160s systolic. Rec : continue norvasc 10 mg/ d and add hydralazine 25 mg q 6 hr per g tube - uptitrate based on BP response. Would only add metoprolol, low dose, if consistent elevation in HR . Subjective ROS Limited/Unobtainable: Yes Subjective Cardiac EP Pt underwent removal of infected pacing system on 11/26. Remains intubated, sedated w/ fentanyl Objective Last 24 Hour Vital Signs Date Time Temp Pulse Resp B/P (MAP) Pulse Ox O2 Delivery O2 Flow Rate FiO2 11/27/18 21:03 52 20 65 11/27/18 21:00 52 20 154/61 (92) 96 11/27/18 20:30 52 19 160/62 (94) 99 11/27/18 20:00 98.6 55 20 144/60 (88) 99 11/27/18 19:40 20 Mechanical Ventilator 65 11/27/18 19:00 59 20 154/69 (97) 91 11/27/18 19:00 21 Mechanical Ventilator 65 11/27/18 18:50 57 20 65 11/27/18 18:30 55 20 138/66 (90) 89 11/27/18 18:00 59 20 148/64 (92) 93 11/27/18 18:00 21 Mechanical Ventilator 65 11/27/18 17:56 62 20 164/71 (102) 95 11/27/18 17:47 193/81 11/27/18 17:30 79 20 193/81 (118) 98 11/27/18 17:04 67 22 65 11/27/18 17:00 70 21 164/ 96 11/27/18 17:00 20 Mechanical Ventilator 65 11/27/18 16:30 62 20 164/71 (102) 95 11/27/18 16:00 98.6 63 18 165/87 (113) 95 11/27/18 16:00 20 Mechanical Ventilator 65 11/27/18 16:00 Mechanical Ventilator 11/27/18 16:00 50 11/27/18 15:30 54 21 148/73 (98) 97 11/27/18 15:00 59 21 147/67 (93) 96 11/27/18 15:00 20 Mechanical Ventilator 11/27/18 14:44 68 22 65 11/27/18 14:33 98.6 11/27/18 14:30 67 19 152/78 (102) 94 11/27/18 14:03 24 Mechanical Ventilator 70 11/27/18 14:00 61 21 151/73 (99) 96 11/27/18 13:30 51 20 143/60 (87) 97 11/27/18 13:00 50 20 137/56 (83) 96 11/27/18 13:00 20 Mechanical Ventilator 11/27/18 12:45 54 20 70 11/27/18 12:22 142/66 11/27/18 12:00 Mechanical Ventilator 11/27/18 12:00 49 11/27/18 12:00 98.6 50 18 140/62 (88) 97 11/27/18 12:00 21 Mechanical Ventilator 11/27/18 11:51 49 20 97 11/27/18 11:49 49 20 98 11/27/18 11:30 49 20 113/45 (67) 100 11/27/18 11:00 57 20 137/56 (83) 96 11/27/18 11:00 20 Mechanical Ventilator 11/27/18 10:32 54 20 75 11/27/18 10:00 61 20 138/60 (86) 91 11/27/18 10:00 20 Mechanical Ventilator 11/27/18 09:59 63 20 134/62 (86) 90 11/27/18 09:30 64 20 142/71 (94) 94 11/27/18 09:02 99.1 11/27/18 09:00 65 20 151/61 (91) 92 11/27/18 09:00 21 Mechanical Ventilator 75 11/27/18 08:49 65 22 75 11/27/18 08:33 65 170/71 11/27/18 08:31 21 Mechanical Ventilator 11/27/18 08:30 65 20 170/71 (104) 94 11/27/18 08:00 71 11/27/18 08:00 21 Mechanical Ventilator 11/27/18 08:00 Mechanical Ventilator 11/27/18 08:00 99.1 69 22 175/77 (109) 95 11/27/18 07:30 47 20 147/60 (89) 97 11/27/18 07:22 47 20 80 11/27/18 07:09 20 Mechanical Ventilator 60.0 80 11/27/18 07:08 20 Mechanical Ventilator 80 11/27/18 07:00 20 Mechanical Ventilator 80 11/27/18 07:00 46 20 148/57 (87) 100 11/27/18 06:30 47 20 145/58 (87) 100 11/27/18 06:28 141/58 11/27/18 06:00 97.4 48 20 141/58 (85) 100 11/27/18 06:00 20 Mechanical Ventilator 80 11/27/18 05:14 54 21 80 11/27/18 05:00 59 20 149/65 (93) 99 11/27/18 05:00 20 Mechanical Ventilator 80 11/27/18 04:30 50 21 140/59 (86) 99 11/27/18 04:00 51 11/27/18 04:00 Mechanical Ventilator 11/27/18 04:00 20 Mechanical Ventilator 80 11/27/18 04:00 98.0 60 20 144/64 (90) 94 11/27/18 03:02 56 20 70 11/27/18 03:00 20 Mechanical Ventilator 80 11/27/18 03:00 101.8 60 19 139/65 (89) 100 11/27/18 02:00 102.0 58 27 138/59 (85) 94 11/27/18 02:00 20 Mechanical Ventilator 80 11/27/18 01:30 102.4 62 21 143/62 (89) 98 11/27/18 01:27 63 22 80 11/27/18 01:00 20 Mechanical Ventilator 80 11/27/18 01:00 62 21 135/74 (94) 94 11/27/18 00:54 20 Mechanical Ventilator 80 11/27/18 00:53 20 Mechanical Ventilator 80 11/27/18 00:30 59 20 151/65 (93) 94 11/27/18 00:00 101.3 56 20 147/64 (91) 92 11/27/18 00:00 Mechanical Ventilator 11/27/18 00:00 52 11/27/18 00:00 20 Mechanical Ventilator 80 11/26/18 23:59 148/61 11/26/18 23:30 53 20 148/61 (90) 95 11/26/18 23:00 51 20 145/61 (89) 96 11/26/18 23:00 20 Mechanical Ventilator 80 11/26/18 22:53 51 20 80 General Appearance: lethargic, on vent EENT: PERRL/EOMI Neck: other - trach Rhythm: NSR Cardiovascular: normal rate, regular rhythm, no gallop/murmur Respiratory/Chest: other - scattered rhonchi Abdomen: normal bowel sounds, non tender, other - g tube Extremities: no swelling Intake and Output 11/26/18 11/27/18 19:00 07:00 Intake Total 1165.500 ml 1104.0 ml Output Total 270 ml 395 ml Balance 895.500 ml 709.0 ml Intake Free Water 60 ml 100 ml IV Total 815.500 ml 594.0 ml Tube Feeding 240 ml 160 ml Blood Product 250 ml Other 50 ml Output Urine Total 270 ml 395 ml Laboratory Tests Test 11/27/18 04:45 White Blood Count 15.1 K/UL (4.8-10.8) H Red Blood Count 2.74 M/UL (4.20-5.40) L Hemoglobin 7.8 G/DL (12.0-16.0) L Hematocrit 24.4 % (37.0-47.0) L Mean Corpuscular Volume 89 FL (80-99) Mean Corpuscular Hemoglobin 28.5 PG (27.0-31.0) Mean Corpuscular Hemoglobin Concent 32.1 G/DL (32.0-36.0) Red Cell Distribution Width 15.0 % (11.6-14.8) H Platelet Count 336 K/UL (150-450) Mean Platelet Volume 5.4 FL (6.5-10.1) L Neutrophils (%) (Auto) % (45.0-75.0) Lymphocytes (%) (Auto) % (20.0-45.0) Monocytes (%) (Auto) % (1.0-10.0) Eosinophils (%) (Auto) % (0.0-3.0) Basophils (%) (Auto) % (0.0-2.0) Differential Total Cells Counted 100 Neutrophils % (Manual) 73 % (45-75) Lymphocytes % (Manual) 15 % (20-45) L Monocytes % (Manual) 8 % (1-10) Eosinophils % (Manual) 4 % (0-3) H Basophils % (Manual) 0 % (0-2) Band Neutrophils 0 % (0-8) Platelet Estimate Adequate Platelet Morphology Normal Anisocytosis 1+ Sodium Level 143 MMOL/L (136-145) Potassium Level 3.7 MMOL/L (3.5-5.1) Chloride Level 111 MMOL/L (98-107) H Carbon Dioxide Level 22 MMOL/L (21-32) Anion Gap 10 mmol/L (5-15) Blood Urea Nitrogen 44 mg/dL (7-18) H Creatinine 1.6 MG/DL (0.55-1.30) H Estimat Glomerular Filtration Rate 34.7 mL/min (>60) Glucose Level 87 MG/DL (74-106) Calcium Level 8.4 MG/DL (8.5-10.1) L Ferritin 202 NG/ML (8-388) Microbiology Date/Time Source Procedure Growth Status 11/26/18 13:34 Other(Specify in comment) Catheter Tip Culture - Preliminary NO GROWTH Resulted 11/26/18 13:26 Other(Specify in comment) Gram Stain - Final Resulted 11/26/18 13:26 Other(Specify in comment) Aerobic Culture - Preliminary NO GROWTH Resulted 11/26/18 13:26 Other(Specify in comment) Anaerobic Culture Pending Resulted 11/26/18 13:28 Chest Gram Stain - Final Resulted 11/26/18 13:28 Chest Aerobic Culture - Preliminary NO GROWTH Resulted 11/26/18 13:28 Chest Anaerobic Culture Pending Resulted Lani Lyle MD Nov 27, 2018 22:42
--- NOTE | 2018-11-27 22:45 | Progress Note ---
DATE: 11/27/2018 SUBJECTIVE: The patient's condition is stabilizing today. She underwent a transesophageal echocardiography and was found to have clean valve, and no evidence of endocarditis was identified. PHYSICAL EXAMINATION: VITAL SIGNS: Blood pressure 154/71, her pulse is 62, respirations of 20, and temperature is 98.6. HEENT: Eyes were normal. ENT, mucous membranes were moist and intact. NECK: Supple with no JVD without lymph nodes. Tracheostomy site is clean. LUNGS: Clear without rhonchi, rales, or wheezing. Secretions are small, thin, and white. HEART: Normal sounds with regular beats. There is mostly bradycardia at rest, most of the time between 50 to 55. ABDOMEN: Soft and nontender with normal bowel sounds. Gastrostomy site is clean. EXTREMITIES: Warm without cyanosis, clubbing, or edema. LABORATORY AND DIAGNOSTIC DATA: Hemoglobin is 7.8, hematocrit 24.4 with MCV of 89, WBC of 15.1, and platelets 326. Her BUN and creatinine 44 and 1.6 respectively. Sodium is 143, potassium 3.7, chloride 111, CO2 is 22, and calcium 8.4. IMPRESSION AND PLAN: The patient's condition is stabilizing endocarditis. She still has leukocytosis. She is currently on vancomycin piggyback q.24 h. and piperacillin and tazobactam 3.375 g IV piggyback q.8 h. Repeat laboratory tests will be done in the a.m. Lucas Dong M.D. DR: Benita JOB#: [id number] CC:
[2018-11-27] MEDS: HydrALAZINE 25mg tab GT SCH (23:43)
[2018-11-28] VITALS (56 sets, daily range): BP systolic 128–210; BP diastolic 49–94
[2018-11-28] MEDS: fentaNYL Citrate 2500mcg in NS 250ml IV SCH ×2 (03:04→09:42)
[2018-11-28] MEDS: HydrALAZINE 25mg tab GT SCH ×3 (05:41→17:55)
[2018-11-28 07:19] LABS: HEMOGLOBIN 8.9 G/DL (12.0-16.0); MEAN CORPUSCULAR VOLUME 89 FL (80-99); PLATELET COUNT 368 K/UL (150-450); RED BLOOD COUNT 3.13 M/UL (4.20-5.40); RED CELL DISTRIBUTION WIDTH 15.2 % (11.6-14.8); WHITE BLOOD COUNT 19.4 K/UL (4.8-10.8)
[2018-11-28 07:31] LABS: ALANINE AMINOTRANSFERASE 53 U/L (12-78); ALBUMIN 2.6 G/DL (3.4-5.0); ALBUMIN/GLOBULIN RATIO 0.5 (1.0-2.7); ALKALINE PHOSPHATASE 1092 U/L (46-116); ANION GAP 10 mmol/L (5-15); ASPARTATE AMINO TRANSFERASE 47 U/L (15-37); BILIRUBIN,TOTAL 0.8 MG/DL (0.2-1.0); BLOOD UREA NITROGEN 39 mg/dL (7-18); CALCIUM 8.9 MG/DL (8.5-10.1); CARBON DIOXIDE 22 MMOL/L (21-32); CHLORIDE 112 MMOL/L (98-107); CREATININE 1.6 MG/DL (0.55-1.30); POTASSIUM 3.7 MMOL/L (3.5-5.1); SODIUM 144 MMOL/L (136-145)
[2018-11-28] MEDS: Vancomycin 750mg/NS 275ml IVPB SCH ×2 (07:43)
[2018-11-28] MEDS: Haloperidol 5mg/ml Inj IM PRN (07:44)
[2018-11-28] MEDS: Piperacillin/Tazobactam 3.375 GM in NS 110 ML IVPB SCH ×3 (07:44→23:43)
[2018-11-28] MEDS: Thiamine 100mg tab GT SCH (08:21)
[2018-11-28] MEDS: Heparin 5000 units/ml inj SUBQ SCH ×2 (08:22→20:42)
--- NOTE | 2018-11-28 10:09 | Pulmonolgy Critical Care Note ---
Critical Care - Asmt/Plan Problems: (1) Chronic respiratory failure (2) Chest pain (3) JAVIER (acute kidney injury) (4) Anemia (5) Ventilator dependence (6) S/P aortic dissection repair (7) Tracheostomy in place (8) Feeding by G-tube (9) Bacteremia Respiratory: monitor respiratory rate, adjust FIO2, CXR Cardiac: continue to monitor HR/BP Renal: F/U I&O, check electrolytes Infectious Disease: check cultures, continue antibiotics Gastrointestinal: continue feedings/current rate Endocrine: monitor blood sugar Hematologic: transfuse if hgb<8.5 Neurologic: PRN Ativan, PRN Morphine, keep patient comfortable Time Spent (Minutes): 40 Notes Reviewed: geodetic advisor, cardio, renal Discussed with: nurses, consultants, 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 - Objective Last 24 Hour Vital Signs Date Time Temp Pulse Resp B/P (MAP) Pulse Ox O2 Delivery O2 Flow Rate FiO2 11/28/18 09:59 70 11/28/18 09:50 70 11/28/18 09:42 50 Mechanical Ventilator 100 11/28/18 09:11 51 20 100 11/28/18 09:00 52 15 128/53 (78) 99 11/28/18 08:45 Mechanical Ventilator 100 11/28/18 08:45 56 13 141/61 (87) 96 11/28/18 08:40 58 141/61 11/28/18 08:30 61 20 141/61 (87) 99 11/28/18 08:30 20 Mechanical Ventilator 100 11/28/18 08:15 66 19 150/64 (92) 98 11/28/18 08:00 Mechanical Ventilator 11/28/18 08:00 99.0 66 19 150/64 (92) 98 11/28/18 08:00 20 Mechanical Ventilator 100 11/28/18 08:00 100 11/28/18 07:01 79 26 100 11/28/18 07:00 60 20 154/90 (111) 96 11/28/18 07:00 20 Mechanical Ventilator 100 11/28/18 06:30 68 18 153/65 (94) 94 11/28/18 06:00 20 Mechanical Ventilator 100 11/28/18 06:00 66 21 152/60 (90) 96 11/28/18 05:41 143/66 11/28/18 05:30 65 20 143/66 (91) 98 11/28/18 05:00 68 21 100 11/28/18 05:00 68 20 162/62 (95) 97 11/28/18 05:00 20 Mechanical Ventilator 100 11/28/18 04:30 70 20 188/73 (111) 88 11/28/18 04:00 100.1 57 17 155/60 (91) 92 11/28/18 04:00 17 Mechanical Ventilator 65 11/28/18 04:00 Mechanical Ventilator 11/28/18 03:30 56 20 154/61 (92) 96 11/28/18 03:06 59 11/28/18 03:04 20 Mechanical Ventilator 100 11/28/18 03:00 58 20 149/56 (87) 94 11/28/18 03:00 20 Mechanical Ventilator 65 11/28/18 02:48 58 20 100 11/28/18 02:30 56 20 135/50 (78) 88 11/28/18 02:00 20 Mechanical Ventilator 65 11/28/18 02:00 63 20 133/59 (83) 89 11/28/18 01:30 65 20 147/55 (85) 92 11/28/18 01:11 67 20 159/66 (97) 93 11/28/18 01:00 77 22 65 11/28/18 01:00 24 Mechanical Ventilator 65 11/28/18 01:00 73 24 181/66 (104) 93 11/28/18 00:30 62 20 134/74 (94) 96 11/28/18 00:00 Mechanical Ventilator 11/28/18 00:00 100.4 65 20 161/70 (100) 96 11/28/18 00:00 20 Mechanical Ventilator 65 11/27/18 23:43 146/93 11/27/18 23:30 64 17 146/93 (110) 94 11/27/18 23:05 66 11/27/18 23:04 71 20 65 11/27/18 23:00 16 Mechanical Ventilator 65 11/27/18 23:00 66 16 168/78 (108) 92 11/27/18 22:30 61 20 155/70 (98) 92 11/27/18 22:00 57 20 168/64 (98) 96 11/27/18 22:00 20 Mechanical Ventilator 65 11/27/18 21:30 54 20 168/66 (100) 96 11/27/18 21:03 52 20 65 11/27/18 21:00 20 Mechanical Ventilator 65 11/27/18 21:00 52 20 154/61 (92) 96 11/27/18 20:30 52 19 160/62 (94) 99 11/27/18 20:00 98.6 55 20 144/60 (88) 99 11/27/18 20:00 20 Mechanical Ventilator 65 11/27/18 20:00 Mechanical Ventilator 11/27/18 19:40 20 Mechanical Ventilator 65 11/27/18 19:03 56 11/27/18 19:00 59 20 154/69 (97) 91 11/27/18 19:00 21 Mechanical Ventilator 65 11/27/18 18:50 57 20 65 11/27/18 18:30 55 20 138/66 (90) 89 11/27/18 18:00 59 20 148/64 (92) 93 11/27/18 18:00 21 Mechanical Ventilator 65 11/27/18 17:56 62 20 164/71 (102) 95 11/27/18 17:47 193/81 11/27/18 17:30 79 20 193/81 (118) 98 11/27/18 17:04 67 22 65 11/27/18 17:00 70 21 164/ 96 11/27/18 17:00 20 Mechanical Ventilator 65 11/27/18 16:30 62 20 164/71 (102) 95 11/27/18 16:00 98.6 63 18 165/87 (113) 95 11/27/18 16:00 20 Mechanical Ventilator 65 11/27/18 16:00 Mechanical Ventilator 11/27/18 16:00 50 11/27/18 15:30 54 21 148/73 (98) 97 11/27/18 15:00 59 21 147/67 (93) 96 11/27/18 15:00 20 Mechanical Ventilator 11/27/18 14:44 68 22 65 11/27/18 14:33 98.6 11/27/18 14:30 67 19 152/78 (102) 94 11/27/18 14:03 24 Mechanical Ventilator 70 11/27/18 14:00 61 21 151/73 (99) 96 11/27/18 13:30 51 20 143/60 (87) 97 11/27/18 13:00 50 20 137/56 (83) 96 11/27/18 13:00 20 Mechanical Ventilator 11/27/18 12:45 54 20 70 11/27/18 12:22 142/66 11/27/18 12:00 Mechanical Ventilator 11/27/18 12:00 49 11/27/18 12:00 98.6 50 18 140/62 (88) 97 11/27/18 12:00 21 Mechanical Ventilator 11/27/18 11:51 49 20 97 11/27/18 11:49 49 20 98 11/27/18 11:30 49 20 113/45 (67) 100 11/27/18 11:00 57 20 137/56 (83) 96 11/27/18 11:00 20 Mechanical Ventilator 11/27/18 10:32 54 20 75 Status: awake, sedated Condition: critical HEENT: atraumatic Neck: full ROM Lungs: clear Heart: HR/BP stable, regular Abdomen: soft, non-tender, feeding tube Extremities: edema Micro: Microbiology Date/Time Source Procedure Growth Status 11/26/18 13:34 Other(Specify in comment) Catheter Tip Culture - Preliminary NO GROWTH Resulted 11/26/18 13:26 Other(Specify in comment) Gram Stain - Final Resulted 11/26/18 13:26 Other(Specify in comment) Aerobic Culture - Preliminary NO GROWTH Resulted 11/26/18 13:26 Other(Specify in comment) Anaerobic Culture Pending Resulted 11/26/18 13:28 Chest Gram Stain - Final Resulted 11/26/18 13:28 Chest Aerobic Culture - Preliminary NO GROWTH Resulted 11/26/18 13:28 Chest Anaerobic Culture Pending Resulted Accucheck: 218 Critical Care - Subjective ROS Limited/Unobtainable: Yes Condition: critical EKG Rhythm: Sinus Rhythm FI02: 70 Vent Support Breath Rate: 10 Vent Support Mode: AC Vent Tidal Volume: 600 Sputum Amount: Small PEEP: 10.0 PIP: 31 Tube Feeding Amount: 40 I&O: Intake and Output 11/27/18 11/28/18 18:59 06:59 Intake Total 1229.493 ml 1225.84 ml Output Total 445 ml 560 ml Balance 784.493 ml 665.84 ml Intake Free Water 120 ml 50 ml IV Total 909.493 ml 635.84 ml Tube Feeding 200 ml 480 ml Other 60 ml Output Urine Total 445 ml 560 ml CXR: ET in good position Labs: Laboratory Tests Test 11/28/18 06:45 White Blood Count 19.4 K/UL (4.8-10.8) H Red Blood Count 3.13 M/UL (4.20-5.40) L Hemoglobin 8.9 G/DL (12.0-16.0) L Hematocrit 28.0 % (37.0-47.0) L Mean Corpuscular Volume 89 FL (80-99) Mean Corpuscular Hemoglobin 28.4 PG (27.0-31.0) Mean Corpuscular Hemoglobin Concent 31.9 G/DL (32.0-36.0) L Red Cell Distribution Width 15.2 % (11.6-14.8) H Platelet Count 368 K/UL (150-450) Mean Platelet Volume 5.6 FL (6.5-10.1) L Neutrophils (%) (Auto) % (45.0-75.0) Lymphocytes (%) (Auto) % (20.0-45.0) Monocytes (%) (Auto) % (1.0-10.0) Eosinophils (%) (Auto) % (0.0-3.0) Basophils (%) (Auto) % (0.0-2.0) Neutrophils % (Manual) Pending Lymphocytes % (Manual) Pending Platelet Estimate Pending Platelet Morphology Pending Sodium Level 144 MMOL/L (136-145) Potassium Level 3.7 MMOL/L (3.5-5.1) Chloride Level 112 MMOL/L (98-107) H Carbon Dioxide Level 22 MMOL/L (21-32) Anion Gap 10 mmol/L (5-15) Blood Urea Nitrogen 39 mg/dL (7-18) H Creatinine 1.6 MG/DL (0.55-1.30) H Estimat Glomerular Filtration Rate 34.7 mL/min (>60) Glucose Level 122 MG/DL (74-106) H Calcium Level 8.9 MG/DL (8.5-10.1) Total Bilirubin 0.8 MG/DL (0.2-1.0) Aspartate Amino Transf (AST/SGOT) 47 U/L (15-37) H Alanine Aminotransferase (ALT/SGPT) 53 U/L (12-78) Alkaline Phosphatase 1092 U/L (46-116) H Pro-B-Type Natriuretic Peptide 63702 pg/mL (0-125) H Total Protein 7.8 G/DL (6.4-8.2) Albumin 2.6 G/DL (3.4-5.0) L Globulin 5.2 g/dL Albumin/Globulin Ratio 0.5 (1.0-2.7) L Vancomycin Level Trough 16.1 ug/mL (5.0-12.0) H Ranjith Arora MD Nov 28, 2018 10:09
--- NOTE | 2018-11-28 10:57 | Hematology/Onc Progress Note ---
Assessment/Plan Assessment/Plan # Anemia of chronic disease due to underlying chronic medical issues, multifactorial --> Anemia workup has been reviewed, cw acd --> No evidence of hemolysis is noted, peripheral smear has been reviewed. --> Hgb goal >7. Transfuse prn. --> Epogen or iron at this time is not particularly indicated --> Medications have been reviewed --> low threshold for gi evaluation in case has occult + --> hgb 7.1-->7.8-->8.9 # Leukocytosis, recurrent- increased, now improving --> PPM site (pocket) infection (redness and pain, bacteremia) and likely pocket abscess- no vegetation seen on ABBIE --> is s'p pm removal and also pocket infection is better --> wbc 15-->19 # Acute hypoxic respiratory failure s/p intubation 11/23- ?ARDS --> on vent/trach # Gram positive bacteremia- real bacteremia- 2ry to above and probable PNA --> per id care # JAVIER initially >2 --> now improved # Dypshagia s/p peg # thoracic aortic dissection s/p repair early 2017 # [place] resident # Dvt ppx scds The timing of this note does not necessarily reflect the time of the patient was seen. Greatly appreciate consultation. Subjective Cardiovascular: Denies: no symptoms, chest pain, edema, irregular heart rate, lightheadedness, palpitations, syncope, other Respiratory: Denies: no symptoms, cough, shortness of breath, SOB with excertion, SOB at rest, sputum, wheezing, other Gastrointestinal/Abdominal: Denies: no symptoms, abdomen distended, abdominal pain, black stools, tarry stools, blood in stool, constipated, diarrhea, difficulty swallowing, nausea, poor appetite, poor fluid intake, rectal bleeding , vomiting, other Genitourinary: Denies: no symptoms, burning, discharge, frequency, flank pain, hematuria, incontinence, pain, urgency, other Neurologic/Psychiatric: Denies: no symptoms, anxiety, depressed, emotional problems, headache, numbness, paresthesia, pre-existing deficit, seizure, tingling, tremors, weakness, other Endocrine: Denies: no symptoms, excessive sweating, flushing, intolerance to cold, intolerance to heat, increased hunger, increased thirst, increased urine, unexplained weight gain, unexplained weight loss, other Allergies: Coded Allergies: No Known Allergies (Unverified , 10/10/17) Subjective 11/27: PRBC was given yest, no events, seen by cards, no bleeding 11/28: laying in bed, nonverbal, agitated, pulling on trach Objective Objective Current Medications Medications (Trade) Dose Ordered Sig/Penny Route PRN Reason Start Time Stop Time Status Last Admin Dose Admin Acetaminophen (Tylenol) 650 mg Q4H PRN ORAL Mild Pain/Temp > 100.5 11/23/18 14:00 12/19/18 13:59 11/27/18 08:32 Acetaminophen/ Codeine Phosphate (Tylenol #3) 1 tab Q6H PRN GT Moderate Pain (Pain Scale 4-6) 11/26/18 13:00 12/03/18 12:59 Albuterol/ Ipratropium (Albuterol/ Ipratropium) 3 ml Q4HRT PRN HHN sob 11/25/18 07:00 11/30/18 06:59 Amlodipine Besylate (Norvasc) 10 mg DAILY GT 11/24/18 09:00 12/19/18 08:59 11/27/18 08:33 Diphenhydramine HCl (Benadryl) 25 mg Q6H PRN IVP Itching 11/23/18 14:00 12/21/18 13:59 Fentanyl Citrate 2500 mcg/Sodium Chloride 250 ml @ 0 mls/hr Q24H IV 11/23/18 17:00 11/30/18 16:59 11/28/18 09:42 Haloperidol Lactate (Haldol) 5 mg Q6H PRN IM Agitation 11/24/18 00:30 12/24/18 00:29 11/28/18 07:44 Heparin Sodium (Porcine) (Heparin 5000 units/ml) 5,000 units EVERY 12 HOURS SUBQ 11/23/18 21:00 12/19/18 08:59 11/28/18 08:22 Hydralazine HCl (Apresoline) 10 mg Q6HR PRN GT For High Blood Pressure 11/27/18 23:15 12/27/18 23:14 Hydralazine HCl (Apresoline) 25 mg Q6HR GT 11/28/18 00:00 12/28/18 00:00 11/28/18 05:41 Lansoprazole (Prevacid) 30 mg DAILY GT 11/24/18 09:00 12/19/18 08:59 11/28/18 08:21 Lorazepam (Ativan 2mg/ml 1ml) 1 mg Q4H PRN IV For Anxiety 11/24/18 10:15 12/01/18 06:14 11/27/18 17:47 Ondansetron HCl (Zofran) 4 mg Q8H PRN IM Nausea & Vomiting 11/23/18 14:00 12/19/18 13:59 Oxycodone/ Acetaminophen (Percocet 10) 1 tab Q4H PRN ORAL Severe Pain (Pain Scale 7-10) 11/23/18 14:00 11/29/18 13:59 Piperacillin Sod/ Tazobactam Sod 3.375 gm/Sodium Chloride 110 ml @ 27.5 mls/hr Q8H IVPB 11/24/18 08:00 12/01/18 07:59 11/28/18 07:44 Thiamine HCl (Vitamin B1) 100 mg DAILY GT 11/24/18 09:00 12/19/18 08:59 11/28/18 08:21 Vancomycin HCl (Vanco rx to dose) 1 ea DAILY PRN MISC Per rx protocol 11/25/18 07:45 12/25/18 07:44 Vancomycin HCl 750 mg/Sodium Chloride 275 ml @ 183.333 mls/hr Q24H IVPB 11/26/18 08:00 12/01/18 07:59 11/28/18 07:43 Last 24 Hour Vital Signs Date Time Temp Pulse Resp B/P (MAP) Pulse Ox O2 Delivery O2 Flow Rate FiO2 11/28/18 10:45 21 Mechanical Ventilator 70 11/28/18 10:34 61 23 70 11/28/18 09:59 70 11/28/18 09:50 70 11/28/18 09:43 18 Mechanical Ventilator 100 11/28/18 09:42 50 Mechanical Ventilator 100 11/28/18 09:11 51 20 100 11/28/18 09:00 52 15 128/53 (78) 99 11/28/18 08:45 Mechanical Ventilator 100 11/28/18 08:45 56 13 141/61 (87) 96 11/28/18 08:40 58 141/61 10/16/19 08:30 61 20 141/61 (87) 99 11/28/18 08:30 20 Mechanical Ventilator 100 11/28/18 08:15 66 19 150/64 (92) 98 11/28/18 08:00 Mechanical Ventilator 11/28/18 08:00 80 11/28/18 08:00 99.0 66 19 150/64 (92) 98 11/28/18 08:00 20 Mechanical Ventilator 100 11/28/18 08:00 100 11/28/18 07:01 79 26 100 11/28/18 07:00 60 20 154/90 (111) 96 11/28/18 07:00 20 Mechanical Ventilator 100 11/28/18 06:30 68 18 153/65 (94) 94 11/28/18 06:00 20 Mechanical Ventilator 100 11/28/18 06:00 66 21 152/60 (90) 96 11/28/18 05:41 143/66 11/28/18 05:30 65 20 143/66 (91) 98 11/28/18 05:00 68 21 100 11/28/18 05:00 68 20 162/62 (95) 97 11/28/18 05:00 20 Mechanical Ventilator 100 11/28/18 04:30 70 20 188/73 (111) 88 11/28/18 04:00 100.1 57 17 155/60 (91) 92 11/28/18 04:00 17 Mechanical Ventilator 65 11/28/18 04:00 Mechanical Ventilator 11/28/18 03:30 56 20 154/61 (92) 96 11/28/18 03:06 59 11/28/18 03:04 20 Mechanical Ventilator 100 11/28/18 03:00 58 20 149/56 (87) 94 11/28/18 03:00 20 Mechanical Ventilator 65 11/28/18 02:48 58 20 100 11/28/18 02:30 56 20 135/50 (78) 88 11/28/18 02:00 20 Mechanical Ventilator 65 11/28/18 02:00 63 20 133/59 (83) 89 11/28/18 01:30 65 20 147/55 (85) 92 11/28/18 01:11 67 20 159/66 (97) 93 11/28/18 01:00 77 22 65 11/28/18 01:00 24 Mechanical Ventilator 65 10/16/19 01:00 73 24 181/66 (104) 93 11/28/18 00:30 62 20 134/74 (94) 96 11/28/18 00:00 Mechanical Ventilator 11/28/18 00:00 100.4 65 20 161/70 (100) 96 11/28/18 00:00 20 Mechanical Ventilator 65 11/27/18 23:43 146/93 11/27/18 23:30 64 17 146/93 (110) 94 11/27/18 23:05 66 11/27/18 23:04 71 20 65 11/27/18 23:00 16 Mechanical Ventilator 65 11/27/18 23:00 66 16 168/78 (108) 92 11/27/18 22:30 61 20 155/70 (98) 92 11/27/18 22:00 57 20 168/64 (98) 96 11/27/18 22:00 20 Mechanical Ventilator 65 11/27/18 21:30 54 20 168/66 (100) 96 11/27/18 21:03 52 20 65 11/27/18 21:00 20 Mechanical Ventilator 65 11/27/18 21:00 52 20 154/61 (92) 96 11/27/18 20:30 52 19 160/62 (94) 99 11/27/18 20:00 98.6 55 20 144/60 (88) 99 11/27/18 20:00 20 Mechanical Ventilator 65 11/27/18 20:00 Mechanical Ventilator 11/27/18 19:40 20 Mechanical Ventilator 65 11/27/18 19:03 56 11/27/18 19:00 59 20 154/69 (97) 91 11/27/18 19:00 21 Mechanical Ventilator 65 11/27/18 18:50 57 20 65 11/27/18 18:30 55 20 138/66 (90) 89 11/27/18 18:00 59 20 148/64 (92) 93 11/27/18 18:00 21 Mechanical Ventilator 65 11/27/18 17:56 62 20 164/71 (102) 95 11/27/18 17:47 193/81 11/27/18 17:30 79 20 193/81 (118) 98 11/27/18 17:04 67 22 65 11/27/18 17:00 70 21 164/ 96 11/27/18 17:00 20 Mechanical Ventilator 65 11/27/18 16:30 62 20 164/71 (102) 95 11/27/18 16:00 98.6 63 18 165/87 (113) 95 11/27/18 16:00 20 Mechanical Ventilator 65 11/27/18 16:00 Mechanical Ventilator 11/27/18 16:00 50 11/27/18 15:30 54 21 148/73 (98) 97 11/27/18 15:00 59 21 147/67 (93) 96 11/27/18 15:00 20 Mechanical Ventilator 11/27/18 14:44 68 22 65 11/27/18 14:33 98.6 11/27/18 14:30 67 19 152/78 (102) 94 11/27/18 14:03 24 Mechanical Ventilator 70 11/27/18 14:00 61 21 151/73 (99) 96 11/27/18 13:30 51 20 143/60 (87) 97 11/27/18 13:00 50 20 137/56 (83) 96 11/27/18 13:00 20 Mechanical Ventilator 11/27/18 12:45 54 20 70 11/27/18 12:22 142/66 11/27/18 12:00 Mechanical Ventilator 11/27/18 12:00 49 11/27/18 12:00 98.6 50 18 140/62 (88) 97 11/27/18 12:00 21 Mechanical Ventilator 11/27/18 11:51 49 20 97 11/27/18 11:49 49 20 98 11/27/18 11:30 49 20 113/45 (67) 100 11/27/18 11:00 57 20 137/56 (83) 96 11/27/18 11:00 20 Mechanical Ventilator 11/27/18 10:32 54 20 75 11/27/18 10:00 61 20 138/60 (86) 91 11/27/18 10:00 20 Mechanical Ventilator 11/27/18 09:59 63 20 134/62 (86) 90 11/27/18 09:30 64 20 142/71 (94) 94 11/27/18 09:02 99.1 11/27/18 09:00 65 20 151/61 (91) 92 11/27/18 09:00 21 Mechanical Ventilator 75 11/27/18 08:49 65 22 75 11/27/18 08:33 65 170/71 11/27/18 08:31 21 Mechanical Ventilator 11/27/18 08:30 65 20 170/71 (104) 94 11/27/18 08:00 71 11/27/18 08:00 21 Mechanical Ventilator 11/27/18 08:00 Mechanical Ventilator 11/27/18 08:00 99.1 69 22 175/77 (109) 95 11/27/18 07:30 47 20 147/60 (89) 97 11/27/18 07:22 47 20 80 11/27/18 07:09 20 Mechanical Ventilator 60.0 80 11/27/18 07:08 20 Mechanical Ventilator 80 11/27/18 07:00 20 Mechanical Ventilator 80 11/27/18 07:00 46 20 148/57 (87) 100 11/27/18 06:30 47 20 145/58 (87) 100 11/27/18 06:28 141/58 11/27/18 06:00 97.4 48 20 141/58 (85) 100 11/27/18 06:00 20 Mechanical Ventilator 80 11/27/18 05:14 54 21 80 11/27/18 05:00 59 20 149/65 (93) 99 11/27/18 05:00 20 Mechanical Ventilator 80 11/27/18 04:30 50 21 140/59 (86) 99 11/27/18 04:00 51 11/27/18 04:00 Mechanical Ventilator 11/27/18 04:00 20 Mechanical Ventilator 80 11/27/18 04:00 98.0 60 20 144/64 (90) 94 11/27/18 03:02 56 20 70 11/27/18 03:00 20 Mechanical Ventilator 80 11/27/18 03:00 101.8 60 19 139/65 (89) 100 11/27/18 02:00 102.0 58 27 138/59 (85) 94 11/27/18 02:00 20 Mechanical Ventilator 80 11/27/18 01:30 102.4 62 21 143/62 (89) 98 11/27/18 01:27 63 22 80 11/27/18 01:00 20 Mechanical Ventilator 80 11/27/18 01:00 62 21 135/74 (94) 94 11/27/18 00:54 20 Mechanical Ventilator 80 11/27/18 00:53 20 Mechanical Ventilator 80 11/27/18 00:30 59 20 151/65 (93) 94 11/27/18 00:00 101.3 56 20 147/64 (91) 92 11/27/18 00:00 Mechanical Ventilator 11/27/18 00:00 52 11/27/18 00:00 20 Mechanical Ventilator 80 11/26/18 23:59 148/61 11/26/18 23:30 53 20 148/61 (90) 95 11/26/18 23:00 51 20 145/61 (89) 96 11/26/18 23:00 20 Mechanical Ventilator 80 11/26/18 22:53 51 20 80 11/26/18 22:00 51 20 144/60 (88) 97 11/26/18 22:00 20 Mechanical Ventilator 90 11/26/18 21:30 51 20 137/59 (85) 96 11/26/18 21:14 50 20 100 90 11/26/18 21:00 20 Mechanical Ventilator 90 11/26/18 21:00 52 20 132/57 (82) 98 11/26/18 20:30 54 20 134/60 (84) 98 11/26/18 20:00 Mechanical Ventilator 11/26/18 20:00 20 Mechanical Ventilator 100 11/26/18 20:00 51 11/26/18 20:00 99.0 52 20 140/58 (85) 94 11/26/18 19:30 51 20 134/57 (82) 96 11/26/18 19:06 53 20 95 100 53 20 100 11/26/18 19:00 55 19 145/64 (91) 95 11/26/18 18:57 21 Mechanical Ventilator 100 11/26/18 18:00 58 21 140/57 (84) 95 11/26/18 18:00 21 100 11/26/18 17:27 145/72 11/26/18 17:10 51 20 100 11/26/18 17:00 45 20 145/72 (96) 92 11/26/18 17:00 20 Mechanical Ventilator 100 11/26/18 16:00 Mechanical Ventilator 11/26/18 16:00 54 11/26/18 16:00 20 100 11/26/18 16:00 96.6 45 20 143/56 (85) 90 11/26/18 15:01 59 20 100 11/26/18 15:00 56 20 143/64 (90) 90 10/14/19 15:00 21 Mechanical Ventilator 60 10/14/19 14:30 52 20 128/78 (95) 96 11/26/18 14:00 69 19 190/83 (118) 88 11/26/18 14:00 20 Mechanical Ventilator 60.0 11/26/18 13:45 70 20 225/82 (129) 75 11/26/18 13:30 52 21 174/85 (114) 86 11/26/18 13:15 96.6 46 20 133/59 (83) 94 11/26/18 13:00 48 21 178/85 (116) 86 11/26/18 13:00 48 11/26/18 13:00 Mechanical Ventilator 11/26/18 13:00 20 Mechanical Ventilator 60 11/26/18 13:00 48 98 11/26/18 12:59 61 20 100 11/26/18 11:30 Ambu-Bag 11/26/18 11:16 60 20 60 11/26/18 11:00 61 19 132/68 (89) 94 11/26/18 11:00 132/68 11/26/18 11:00 20 Mechanical Ventilator 60 Intake and Output 11/27/18 11/28/18 18:59 06:59 Intake Total 1229.493 ml 1225.84 ml Output Total 445 ml 560 ml Balance 784.493 ml 665.84 ml Intake Free Water 120 ml 50 ml IV Total 909.493 ml 635.84 ml Tube Feeding 200 ml 480 ml Other 60 ml Output Urine Total 445 ml 560 ml Labs Test 11/26/18 03:30 11/26/18 04:00 11/27/18 04:45 11/28/18 06:45 White Blood Count 16.7 K/UL (4.8-10.8) 15.1 K/UL (4.8-10.8) 19.4 K/UL (4.8-10.8) Red Blood Count 2.49 M/UL (4.20-5.40) 2.74 M/UL (4.20-5.40) 3.13 M/UL (4.20-5.40) Hemoglobin 7.1 G/DL (12.0-16.0) 7.8 G/DL (12.0-16.0) 8.9 G/DL (12.0-16.0) Hematocrit 21.9 % (37.0-47.0) 24.4 % (37.0-47.0) 28.0 % (37.0-47.0) Mean Corpuscular Volume 88 FL (80-99) 89 FL (80-99) 89 FL (80-99) Mean Corpuscular Hemoglobin 28.4 PG (27.0-31.0) 28.5 PG (27.0-31.0) 28.4 PG (27.0-31.0) Mean Corpuscular Hemoglobin Concent 32.4 G/DL (32.0-36.0) 32.1 G/DL (32.0-36.0) 31.9 G/DL (32.0-36.0) Red Cell Distribution Width 15.4 % (11.6-14.8) 15.0 % (11.6-14.8) 15.2 % (11.6-14.8) Platelet Count 356 K/UL (150-450) 336 K/UL (150-450) 368 K/UL (150-450) Mean Platelet Volume 5.2 FL (6.5-10.1) 5.4 FL (6.5-10.1) 5.6 FL (6.5-10.1) Neutrophils (%) (Auto) % (45.0-75.0) % (45.0-75.0) % (45.0-75.0) Lymphocytes (%) (Auto) % (20.0-45.0) % (20.0-45.0) % (20.0-45.0) Monocytes (%) (Auto) % (1.0-10.0) % (1.0-10.0) % (1.0-10.0) Eosinophils (%) (Auto) % (0.0-3.0) % (0.0-3.0) % (0.0-3.0) Basophils (%) (Auto) % (0.0-2.0) % (0.0-2.0) % (0.0-2.0) Differential Total Cells Counted 100 100 Neutrophils % (Manual) 67 % (45-75) 73 % (45-75) Lymphocytes % (Manual) 24 % (20-45) 15 % (20-45) Monocytes % (Manual) 3 % (1-10) 8 % (1-10) Eosinophils % (Manual) 2 % (0-3) 4 % (0-3) Basophils % (Manual) 0 % (0-2) 0 % (0-2) Band Neutrophils 4 % (0-8) 0 % (0-8) Nucleated Red Blood Cells 3 /100 WBC Platelet Estimate Adequate Adequate Platelet Morphology Normal Normal Red Blood Cell Morphology Normal Sodium Level 142 MMOL/L (136-145) 143 MMOL/L (136-145) 144 MMOL/L (136-145) Potassium Level 3.8 MMOL/L (3.5-5.1) 3.7 MMOL/L (3.5-5.1) 3.7 MMOL/L (3.5-5.1) Chloride Level 109 MMOL/L (98-107) 111 MMOL/L (98-107) 112 MMOL/L (98-107) Carbon Dioxide Level 24 MMOL/L (21-32) 22 MMOL/L (21-32) 22 MMOL/L (21-32) Anion Gap 9 mmol/L (5-15) 10 mmol/L (5-15) 10 mmol/L (5-15) Blood Urea Nitrogen 51 mg/dL (7-18) 44 mg/dL (7-18) 39 mg/dL (7-18) Creatinine 1.5 MG/DL (0.55-1.30) 1.6 MG/DL (0.55-1.30) 1.6 MG/DL (0.55-1.30) Estimat Glomerular Filtration Rate 37.4 mL/min (>60) 34.7 mL/min (>60) 34.7 mL/min (>60) Glucose Level 89 MG/DL (74-106) 87 MG/DL (74-106) 122 MG/DL (74-106) Calcium Level 8.7 MG/DL (8.5-10.1) 8.4 MG/DL (8.5-10.1) 8.9 MG/DL (8.5-10.1) Random Vancomycin Level 14.1 ug/mL Arterial Blood pH 7.438 (7.350-7.450) Arterial Blood Partial Pressure CO2 32.6 mmHg (35.0-45.0) Arterial Blood Partial Pressure O2 64.8 mmHg (75.0-100.0) Arterial Blood HCO3 21.5 mmol/L (22.0-26.0) Arterial Blood Oxygen Saturation 92.8 % (95-100) Arterial Blood Base Excess -2.3 (-2-2) Rojas Test Positive Anisocytosis 1+ Ferritin 202 NG/ML (8-388) Total Bilirubin 0.8 MG/DL (0.2-1.0) Aspartate Amino Transf (AST/SGOT) 47 U/L (15-37) Alanine Aminotransferase (ALT/SGPT) 53 U/L (12-78) Alkaline Phosphatase 1092 U/L (46-116) Pro-B-Type Natriuretic Peptide 62545 pg/mL (0-125) Total Protein 7.8 G/DL (6.4-8.2) Albumin 2.6 G/DL (3.4-5.0) Globulin 5.2 g/dL Albumin/Globulin Ratio 0.5 (1.0-2.7) Vancomycin Level Trough 16.1 ug/mL (5.0-12.0) Height (Feet): 5 Height (Inches): 5.00 Weight (Pounds): 147 Objective Gen: on vent, altered HEENT Sclerae were white. ENT ++trach/vent NECK: Supple. No lymphadenopathy. LUNGS: Clear. HEART: PMI was in fifth left intercostal space in midclavicular line. ABDOMEN: Soft, nontender without organomegaly. There were no masses ++ peg EXTREMITIES: No cyanosi Evan Muhammad MD Nov 28, 2018 10:57
--- NOTE | 2018-11-28 11:20 | Infectious Diseases Prog Note ---
Assessment/Plan Assessment/Plan Assessment: Acute hypoxic respiratory failure s/p intubation 11/23- ?ARDS Fever Leukocytosis, recurrent- increased -u.a wbc 5-10, nit neg, leuk +1 PPM site (pocket) infection (redness and pain, bacteremia) and likely pocket abscess- no vegetation seen on ABBIE -11/27 SP ABBIE: no evidence for vegetation on any of the valves -11/26 SP PPM removal: -OR findings:The fibrous capsule enclosing the generator was then opened and there was a [id number] amount of yellowish fluid drainage. The generator was then removed.Atrial and ventricular leads were detached. The necrotic tissue of the pocket was then removed and the pocket was flushed with an antibiotic solution. -Capsule, wound tissue and lead tip cx: NTD -2d echo: no vegetation seen -US chest: 4.6 x 3.4 x 0.9 cm hypoechoic/anechoic area overlying left chest pacemaker power pack. This could represent either a discrete fluid collection or a focal area of very edematous tissue. Infected fluid pocket also possible. Gram positive bacteremia- real bacteremia- 2ry to above -/ Bcx 3/4 S. epi; 11/20 Bcx neg; 11/24 Bcx NTD Probable PNA -11/26 CXR: Slightly improved aeration of the right lung base. Otherwise mostly stable bilateral interstitial and airspace disease -CXR: etrocardiac consolidation, possibly pneumonia. Right basilar atelectasis -sp cx MRSA, ABC (I Ceftriaxone; otherwise S) Recent aspiration PNA and UTI (late September 2018) -u/a wbc 5-10, nit +, leuk +1; ucx >100k Enterobacter aerogenes (R ancef, nitro; otherwise S) -sp cx MRSA HTN anxiety chronic resp failure s/p trach s/p PEG thoracic aortic dissection s/p repair early 2017 [place] resident Plan: -Continue empiric IV Vancomycin #11 for S. epi bacteremia, PPM site infection and abscess and PNA - guidelines favor treatment for endocarditis in the setting of +pocket infection and bacteremia with Staph; expected end date 12/31/18; weekly CBC, BMP , Vanco through -in terms of device re-implantation, will await patient afebrile for at least 48hrs, leukocytosis resolved and repeat Bcx 11/27 (after device removal) negative in 72 hours -Continue empiric Zosyn #10/14 for PNA -f.u cx -Monitor CBC/CMP, temperatures -Cards f/u -f/u repeat Bcx x2, OR cultures -Cdiff if diarrhea -sp cx Thank you for this consultation. Will continue to follow along with you. Subjective Allergies: Coded Allergies: No Known Allergies (Unverified , 10/10/17) Subjective Tm 100.4 wbc increased repeat BCx p Objective Vital Signs Last 24 Hour Vital Signs Date Time Temp Pulse Resp B/P (MAP) Pulse Ox O2 Delivery O2 Flow Rate FiO2 11/28/18 11:00 55 20 154/56 (88) 93 11/28/18 10:45 21 Mechanical Ventilator 70 11/28/18 10:45 60 20 172/65 (100) 94 11/28/18 10:34 61 23 70 11/28/18 10:00 51 19 144/57 (86) 92 11/28/18 09:59 70 11/28/18 09:50 70 11/28/18 09:45 50 15 133/54 (80) 100 11/28/18 09:43 18 Mechanical Ventilator 100 11/28/18 09:42 50 Mechanical Ventilator 100 11/28/18 09:30 52 20 137/60 (85) 100 11/28/18 09:15 50 18 130/54 (79) 99 11/28/18 09:11 51 20 100 11/28/18 09:00 52 15 128/53 (78) 99 11/28/18 08:45 Mechanical Ventilator 100 11/28/18 08:45 56 13 141/61 (87) 96 11/28/18 08:40 58 141/61 11/28/18 08:30 61 20 141/61 (87) 99 11/28/18 08:30 20 Mechanical Ventilator 100 11/28/18 08:15 66 19 150/64 (92) 98 11/28/18 08:00 Mechanical Ventilator 11/28/18 08:00 80 11/28/18 08:00 99.0 66 19 150/64 (92) 98 11/28/18 08:00 20 Mechanical Ventilator 100 11/28/18 08:00 100 11/28/18 07:01 79 26 100 11/28/18 07:00 60 20 154/90 (111) 96 11/28/18 07:00 20 Mechanical Ventilator 100 11/28/18 06:30 68 18 153/65 (94) 94 11/28/18 06:00 20 Mechanical Ventilator 100 11/28/18 06:00 66 21 152/60 (90) 96 11/28/18 05:41 143/66 11/28/18 05:30 65 20 143/66 (91) 98 11/28/18 05:00 68 21 100 11/28/18 05:00 68 20 162/62 (95) 97 11/28/18 05:00 20 Mechanical Ventilator 100 11/28/18 04:30 70 20 188/73 (111) 88 11/28/18 04:00 100.1 57 17 155/60 (91) 92 11/28/18 04:00 17 Mechanical Ventilator 65 11/28/18 04:00 Mechanical Ventilator 11/28/18 03:30 56 20 154/61 (92) 96 11/28/18 03:06 59 11/28/18 03:04 20 Mechanical Ventilator 100 11/28/18 03:00 58 20 149/56 (87) 94 11/28/18 03:00 20 Mechanical Ventilator 65 11/28/18 02:48 58 20 100 11/28/18 02:30 56 20 135/50 (78) 88 11/28/18 02:00 20 Mechanical Ventilator 65 11/28/18 02:00 63 20 133/59 (83) 89 11/28/18 01:30 65 20 147/55 (85) 92 11/28/18 01:11 67 20 159/66 (97) 93 11/28/18 01:00 77 22 65 11/28/18 01:00 24 Mechanical Ventilator 65 11/28/18 01:00 73 24 181/66 (104) 93 11/28/18 00:30 62 20 134/74 (94) 96 11/28/18 00:00 Mechanical Ventilator 11/28/18 00:00 100.4 65 20 161/70 (100) 96 11/28/18 00:00 20 Mechanical Ventilator 65 11/27/18 23:43 146/93 11/27/18 23:30 64 17 146/93 (110) 94 11/27/18 23:05 66 11/27/18 23:04 71 20 65 11/27/18 23:00 16 Mechanical Ventilator 65 11/27/18 23:00 66 16 168/78 (108) 92 11/27/18 22:30 61 20 155/70 (98) 92 11/27/18 22:00 57 20 168/64 (98) 96 11/27/18 22:00 20 Mechanical Ventilator 65 11/27/18 21:30 54 20 168/66 (100) 96 11/27/18 21:03 52 20 65 11/27/18 21:00 20 Mechanical Ventilator 65 11/27/18 21:00 52 20 154/61 (92) 96 11/27/18 20:30 52 19 160/62 (94) 99 11/27/18 20:00 98.6 55 20 144/60 (88) 99 11/27/18 20:00 20 Mechanical Ventilator 65 11/27/18 20:00 Mechanical Ventilator 11/27/18 19:40 20 Mechanical Ventilator 65 11/27/18 19:03 56 11/27/18 19:00 59 20 154/69 (97) 91 11/27/18 19:00 21 Mechanical Ventilator 65 11/27/18 18:50 57 20 65 11/27/18 18:30 55 20 138/66 (90) 89 11/27/18 18:00 59 20 148/64 (92) 93 11/27/18 18:00 21 Mechanical Ventilator 65 11/27/18 17:56 62 20 164/71 (102) 95 11/27/18 17:47 193/81 11/27/18 17:30 79 20 193/81 (118) 98 11/27/18 17:04 67 22 65 11/27/18 17:00 70 21 164/ 96 11/27/18 17:00 20 Mechanical Ventilator 65 11/27/18 16:30 62 20 164/71 (102) 95 11/27/18 16:00 98.6 63 18 165/87 (113) 95 11/27/18 16:00 20 Mechanical Ventilator 65 11/27/18 16:00 Mechanical Ventilator 11/27/18 16:00 50 11/27/18 15:30 54 21 148/73 (98) 97 11/27/18 15:00 59 21 147/67 (93) 96 11/27/18 15:00 20 Mechanical Ventilator 11/27/18 14:44 68 22 65 11/27/18 14:33 98.6 11/27/18 14:30 67 19 152/78 (102) 94 11/27/18 14:03 24 Mechanical Ventilator 70 11/27/18 14:00 61 21 151/73 (99) 96 11/27/18 13:30 51 20 143/60 (87) 97 11/27/18 13:00 50 20 137/56 (83) 96 11/27/18 13:00 20 Mechanical Ventilator 11/27/18 12:45 54 20 70 11/27/18 12:22 142/66 11/27/18 12:00 Mechanical Ventilator 11/27/18 12:00 49 11/27/18 12:00 98.6 50 18 140/62 (88) 97 11/27/18 12:00 21 Mechanical Ventilator 11/27/18 11:51 49 20 97 11/27/18 11:49 49 20 98 11/27/18 11:30 49 20 113/45 (67) 100 Height (Feet): 5 Height (Inches): 5.00 Weight (Pounds): 147 Objective HEENT: Eyes were normal. Pupils were round, equal, and reactive to light. Sclerae were white. Conjunctivae were pink. ENT, mucous membranes were not dehydrated. NECK: Supple. No lymphadenopathy. LUNGS: Clear. HEART: PMI was in fifth left intercostal space in midclavicular line. There was normal S1 and normal S2. There was no murmur. No arrhythmia. No S3. No S4. No pericardial rub. ABDOMEN: Soft, nontender without organomegaly. There were no masses palpable. Normal bowel sounds without bruits. There was no guarding. No rebound tenderness. No CVA tenderness. EXTREMITIES: No cyanosis, clubbing, and no edema. Extremities were warm. Microbiology Date/Time Source Procedure Growth Status 11/26/18 13:34 Other(Specify in comment) Catheter Tip Culture - Preliminary NO GROWTH Resulted 11/26/18 13:26 Other(Specify in comment) Gram Stain - Final Resulted 11/26/18 13:26 Other(Specify in comment) Aerobic Culture - Preliminary NO GROWTH AFTER 24 HOURS Resulted 11/26/18 13:26 Other(Specify in comment) Anaerobic Culture Pending Resulted 11/26/18 13:28 Chest Gram Stain - Final Resulted 11/26/18 13:28 Chest Aerobic Culture - Preliminary NO GROWTH Resulted 11/26/18 13:28 Chest Anaerobic Culture Pending Resulted Laboratory Tests Test 11/28/18 06:45 White Blood Count 19.4 K/UL (4.8-10.8) H Red Blood Count 3.13 M/UL (4.20-5.40) L Hemoglobin 8.9 G/DL (12.0-16.0) L Hematocrit 28.0 % (37.0-47.0) L Mean Corpuscular Volume 89 FL (80-99) Mean Corpuscular Hemoglobin 28.4 PG (27.0-31.0) Mean Corpuscular Hemoglobin Concent 31.9 G/DL (32.0-36.0) L Red Cell Distribution Width 15.2 % (11.6-14.8) H Platelet Count 368 K/UL (150-450) Mean Platelet Volume 5.6 FL (6.5-10.1) L Neutrophils (%) (Auto) % (45.0-75.0) Lymphocytes (%) (Auto) % (20.0-45.0) Monocytes (%) (Auto) % (1.0-10.0) Eosinophils (%) (Auto) % (0.0-3.0) Basophils (%) (Auto) % (0.0-2.0) Neutrophils % (Manual) Pending Lymphocytes % (Manual) Pending Platelet Estimate Pending Platelet Morphology Pending Sodium Level 144 MMOL/L (136-145) Potassium Level 3.7 MMOL/L (3.5-5.1) Chloride Level 112 MMOL/L (98-107) H Carbon Dioxide Level 22 MMOL/L (21-32) Anion Gap 10 mmol/L (5-15) Blood Urea Nitrogen 39 mg/dL (7-18) H Creatinine 1.6 MG/DL (0.55-1.30) H Estimat Glomerular Filtration Rate 34.7 mL/min (>60) Glucose Level 122 MG/DL (74-106) H Calcium Level 8.9 MG/DL (8.5-10.1) Total Bilirubin 0.8 MG/DL (0.2-1.0) Aspartate Amino Transf (AST/SGOT) 47 U/L (15-37) H Alanine Aminotransferase (ALT/SGPT) 53 U/L (12-78) Alkaline Phosphatase 1092 U/L (46-116) H Pro-B-Type Natriuretic Peptide 03691 pg/mL (0-125) H Total Protein 7.8 G/DL (6.4-8.2) Albumin 2.6 G/DL (3.4-5.0) L Globulin 5.2 g/dL Albumin/Globulin Ratio 0.5 (1.0-2.7) L Vancomycin Level Trough 16.1 ug/mL (5.0-12.0) H Current Medications Medications (Trade) Dose Ordered Sig/Penny Route PRN Reason Start Time Stop Time Status Last Admin Dose Admin Acetaminophen (Tylenol) 650 mg Q4H PRN ORAL Mild Pain/Temp > 100.5 11/23/18 14:00 12/19/18 13:59 11/27/18 08:32 Acetaminophen/ Codeine Phosphate (Tylenol #3) 1 tab Q6H PRN GT Moderate Pain (Pain Scale 4-6) 11/26/18 13:00 12/03/18 12:59 Albuterol/ Ipratropium (Albuterol/ Ipratropium) 3 ml Q4HRT PRN HHN sob 11/25/18 07:00 11/30/18 06:59 Amlodipine Besylate (Norvasc) 10 mg DAILY GT 11/24/18 09:00 12/19/18 08:59 11/27/18 08:33 Diphenhydramine HCl (Benadryl) 25 mg Q6H PRN IVP Itching 11/23/18 14:00 12/21/18 13:59 Fentanyl Citrate 2500 mcg/Sodium Chloride 250 ml @ 0 mls/hr Q24H IV 11/23/18 17:00 11/30/18 16:59 11/28/18 09:42 Haloperidol Lactate (Haldol) 5 mg Q6H PRN IM Agitation 11/24/18 00:30 12/24/18 00:29 11/28/18 07:44 Heparin Sodium (Porcine) (Heparin 5000 units/ml) 5,000 units EVERY 12 HOURS SUBQ 11/23/18 21:00 12/19/18 08:59 11/28/18 08:22 Hydralazine HCl (Apresoline) 10 mg Q6HR PRN GT For High Blood Pressure 11/27/18 23:15 12/27/18 23:14 Hydralazine HCl (Apresoline) 25 mg Q6HR GT 11/28/18 00:00 12/28/18 00:00 11/28/18 05:41 Lansoprazole (Prevacid) 30 mg DAILY GT 11/24/18 09:00 12/19/18 08:59 11/28/18 08:21 Lorazepam (Ativan 2mg/ml 1ml) 1 mg Q4H PRN IV For Anxiety 11/24/18 10:15 12/01/18 06:14 11/27/18 17:47 Ondansetron HCl (Zofran) 4 mg Q8H PRN IM Nausea & Vomiting 11/23/18 14:00 12/19/18 13:59 Oxycodone/ Acetaminophen (Percocet 10) 1 tab Q4H PRN ORAL Severe Pain (Pain Scale 7-10) 11/23/18 14:00 11/29/18 13:59 Piperacillin Sod/ Tazobactam Sod 3.375 gm/Sodium Chloride 110 ml @ 27.5 mls/hr Q8H IVPB 11/24/18 08:00 12/01/18 07:59 11/28/18 07:44 Thiamine HCl (Vitamin B1) 100 mg DAILY GT 11/24/18 09:00 12/19/18 08:59 11/28/18 08:21 Vancomycin HCl (Vanco rx to dose) 1 ea DAILY PRN MISC Per rx protocol 11/25/18 07:45 12/25/18 07:44 Vancomycin HCl 750 mg/Sodium Chloride 275 ml @ 183.333 mls/hr Q24H IVPB 11/26/18 08:00 12/01/18 07:59 11/28/18 07:43 Doreen Nino M.D. Nov 28, 2018 11:20
[2018-11-28] MEDS: HydrALAZINE 10mg Tab GT PRN (13:23)
--- NOTE | 2018-11-28 14:26 | Diagnostic Imaging Report ---
INDICATION: Pain, intraoperative, pacemaker power pack infection TECHNIQUE: Intraoperative imaging Fluoroscopy time: 22.8 seconds Total dose: 0.99252 mGym2 Total number of images: 2 COMPARISON: None FINDINGS: Intraoperative images document removal of left chest pacemaker IMPRESSION: Intraoperative imaging, as described
--- NOTE | 2018-11-28 16:02 | Diagnostic Imaging Report ---
Indication: Dyspnea Technique: One view of the chest Comparison: 11/26/2018 Findings: Interim development of bilateral upper lobe consolidation. These are mostly peripheral, fairly dense on the left. There is also persistent generalized interstitial congestion and airspace edema. There is retrocardiac consolidation. Tracheostomy remains. Median sternotomy sutures and are again demonstrated. Previously demonstrated pacemaker has been removed Impression: Developing bilateral upper lobe peripheral consolidation, may reflect pneumonia versus atypical pulmonary edema Generalized interstitial edema persists Interim pacemaker explantation
--- NOTE | 2018-11-28 19:20 | Cardiac Electrophysiology PN ---
Assessment/Plan Problem List: (1) Sepsis Assessment & Plan: Hemodynamically stable. WBC elevated today - repeat cultures pending. (2) Bacteremia Assessment & Plan: S epi - on iv abx per ID. Pacer felt to be likely source of infection No evidence for endocarditis by ABBIE 11/27 (3) Pacemaker Assessment & Plan: Pacer pocket site infection, and s epi bacteremia- device and leads removed 11/26. will plan re-implant when ID and pulm status cleared. (4) Acute encephalopathy (5) Acute renal failure (6) Feeding by G-tube (7) Encephalopathy (8) Tracheostomy in place Assessment & Plan: respiratory failure, pneumonia. Remains on high fio2 (9) Aortic dissection, thoracic Assessment & Plan: hx of aortic dissection repair 2017 Status: not improved, unchanged Status Narrative Mrs Gillis is a 48 yo woman with hx of thoracic aortic dissection - repair (appx 1 yr ago) , chronic type b dissection, pneumonia, chronic respiratory failure, on vent, s/p g tube and s/p pacemaker placement on 11/01 at [facility] for sick sinus syndrome. She was adm w/ pain and swelling at pacer pocket site, and has s epi bacteremia. Sputum w/ acinetobacter and MRSA Pacemaker has been removed. Rhythm - SR- SB ( 40s at times). Pt w/ increasing WBC today - ? infection source. Repeat cultures pending Assessment/Plan Continue iv abx per ID. Fio2 being weaned. Pt was on high dose fentanyl - this has been stopped, which may improve respiratory status. Metoprolol has been discontinued due to concerns for bradycardia. HR is overall stable, generally 50s -60s, with no av block or symptomatic davis noted. Her BP is high, however. Will increase hydralazine, continue norvasc and give lasix 40 mg iv x1 today for pulm congestion Followup labs, xr in am d/ w RN Subjective ROS Limited/Unobtainable: Yes Subjective Cardiac EP Pt intubated, awake, intermittently agitated. Events noted: fentanyl has been stopped Objective Last 24 Hour Vital Signs Date Time Temp Pulse Resp B/P (MAP) Pulse Ox O2 Delivery O2 Flow Rate FiO2 11/28/18 18:00 56 22 149/61 (90) 99 11/28/18 17:55 149/65 11/28/18 17:15 68 24 75 11/28/18 17:00 64 27 156/62 (93) 96 11/28/18 16:30 59 22 154/61 (92) 97 11/28/18 16:15 59 22 154/61 (92) 97 11/28/18 16:00 98.4 65 18 170/74 (106) 96 11/28/18 16:00 75 11/28/18 16:00 Mechanical Ventilator 11/28/18 16:00 50 11/28/18 15:45 65 18 170/74 (106) 96 11/28/18 15:30 20 Mechanical Ventilator 75 11/28/18 15:30 51 20 130/51 (77) 94 11/28/18 15:03 53 21 75 11/28/18 15:00 20 Mechanical Ventilator 75 11/28/18 15:00 51 21 131/51 (77) 95 11/28/18 14:30 52 13 134/49 (77) 95 11/28/18 14:00 58 21 139/53 (81) 97 11/28/18 14:00 21 Mechanical Ventilator 75 11/28/18 13:30 67 26 165/72 (103) 98 11/28/18 13:23 168/59 11/28/18 13:10 59 20 85 11/28/18 13:00 62 22 168/59 (95) 90 11/28/18 13:00 Mechanical Ventilator 70 11/28/18 12:45 67 21 178/65 (102) 92 11/28/18 12:39 70 27 183/75 (111) 90 11/28/18 12:30 71 18 182/88 (119) 95 11/28/18 12:30 24 Mechanical Ventilator 70 11/28/18 12:00 Mechanical Ventilator 11/28/18 12:00 53 11/28/18 12:00 90 11/28/18 12:00 136/52 11/28/18 12:00 98.7 51 21 134/53 (80) 93 11/28/18 11:45 51 21 134/53 (80) 93 11/28/18 11:30 20 Mechanical Ventilator 70 11/28/18 11:30 52 17 140/53 (82) 92 11/28/18 11:15 55 20 154/56 (88) 93 11/28/18 11:00 55 20 154/56 (88) 93 11/28/18 10:45 21 Mechanical Ventilator 70 11/28/18 10:45 60 20 172/65 (100) 94 11/28/18 10:34 61 23 70 11/28/18 10:00 51 19 144/57 (86) 92 11/28/18 09:59 70 11/28/18 09:50 70 11/28/18 09:45 50 15 133/54 (80) 100 11/28/18 09:43 18 Mechanical Ventilator 100 11/28/18 09:42 50 Mechanical Ventilator 100 11/28/18 09:30 52 20 137/60 (85) 100 11/28/18 09:15 50 18 130/54 (79) 99 11/28/18 09:11 51 20 100 11/28/18 09:00 52 15 128/53 (78) 99 11/28/18 08:45 Mechanical Ventilator 100 11/28/18 08:45 56 13 141/61 (87) 96 11/28/18 08:40 58 141/61 11/28/18 08:30 61 20 141/61 (87) 99 11/28/18 08:30 20 Mechanical Ventilator 100 11/28/18 08:15 66 19 150/64 (92) 98 11/28/18 08:00 Mechanical Ventilator 11/28/18 08:00 80 11/28/18 08:00 99.0 66 19 150/64 (92) 98 11/28/18 08:00 20 Mechanical Ventilator 100 11/28/18 08:00 100 11/28/18 07:30 78 21 175/70 (105) 98 11/28/18 07:01 79 26 100 11/28/18 07:00 60 20 154/90 (111) 96 11/28/18 07:00 20 Mechanical Ventilator 100 11/28/18 06:30 68 18 153/65 (94) 94 11/28/18 06:00 20 Mechanical Ventilator 100 11/28/18 06:00 66 21 152/60 (90) 96 11/28/18 05:41 143/66 11/28/18 05:30 65 20 143/66 (91) 98 11/28/18 05:00 68 21 100 11/28/18 05:00 68 20 162/62 (95) 97 11/28/18 05:00 20 Mechanical Ventilator 100 11/28/18 04:30 70 20 188/73 (111) 88 11/28/18 04:00 100.1 57 17 155/60 (91) 92 11/28/18 04:00 17 Mechanical Ventilator 65 11/28/18 04:00 Mechanical Ventilator 11/28/18 03:30 56 20 154/61 (92) 96 11/28/18 03:06 59 11/28/18 03:04 20 Mechanical Ventilator 100 11/28/18 03:00 58 20 149/56 (87) 94 11/28/18 03:00 20 Mechanical Ventilator 65 11/28/18 02:48 58 20 100 11/28/18 02:30 56 20 135/50 (78) 88 11/28/18 02:00 20 Mechanical Ventilator 65 11/28/18 02:00 63 20 133/59 (83) 89 11/28/18 01:30 65 20 147/55 (85) 92 11/28/18 01:11 67 20 159/66 (97) 93 11/28/18 01:00 77 22 65 11/28/18 01:00 24 Mechanical Ventilator 65 11/28/18 01:00 73 24 181/66 (104) 93 11/28/18 00:30 62 20 134/74 (94) 96 11/28/18 00:00 Mechanical Ventilator 11/28/18 00:00 100.4 65 20 161/70 (100) 96 11/28/18 00:00 20 Mechanical Ventilator 65 11/27/18 23:43 146/93 11/27/18 23:30 64 17 146/93 (110) 94 11/27/18 23:05 66 11/27/18 23:04 71 20 65 11/27/18 23:00 16 Mechanical Ventilator 65 11/27/18 23:00 66 16 168/78 (108) 92 11/27/18 22:30 61 20 155/70 (98) 92 11/27/18 22:00 57 20 168/64 (98) 96 11/27/18 22:00 20 Mechanical Ventilator 65 11/27/18 21:30 54 20 168/66 (100) 96 11/27/18 21:03 52 20 65 11/27/18 21:00 20 Mechanical Ventilator 65 11/27/18 21:00 52 20 154/61 (92) 96 11/27/18 20:30 52 19 160/62 (94) 99 11/27/18 20:00 98.6 55 20 144/60 (88) 99 11/27/18 20:00 20 Mechanical Ventilator 65 11/27/18 20:00 Mechanical Ventilator 11/27/18 19:40 20 Mechanical Ventilator 65 General Appearance: alert, mild distress, on vent EENT: PERRL/EOMI Neck: other - trach Rhythm: NSR, SB Cardiovascular: normal rate, regular rhythm, no gallop/murmur Respiratory/Chest: rhonchi - bilaterally Abdomen: non tender, soft, no mass Extremities: no swelling Intake and Output 11/27/18 11/28/18 19:00 07:00 Intake Total 1296.993 ml 1198.34 ml Output Total 455 ml 575 ml Balance 841.993 ml 623.34 ml Intake Free Water 120 ml 50 ml IV Total 936.993 ml 608.34 ml Tube Feeding 240 ml 480 ml Other 60 ml Output Urine Total 455 ml 575 ml Laboratory Tests Test 11/28/18 06:45 White Blood Count 19.4 K/UL (4.8-10.8) H Red Blood Count 3.13 M/UL (4.20-5.40) L Hemoglobin 8.9 G/DL (12.0-16.0) L Hematocrit 28.0 % (37.0-47.0) L Mean Corpuscular Volume 89 FL (80-99) Mean Corpuscular Hemoglobin 28.4 PG (27.0-31.0) Mean Corpuscular Hemoglobin Concent 31.9 G/DL (32.0-36.0) L Red Cell Distribution Width 15.2 % (11.6-14.8) H Platelet Count 368 K/UL (150-450) Mean Platelet Volume 5.6 FL (6.5-10.1) L Neutrophils (%) (Auto) % (45.0-75.0) Lymphocytes (%) (Auto) % (20.0-45.0) Monocytes (%) (Auto) % (1.0-10.0) Eosinophils (%) (Auto) % (0.0-3.0) Basophils (%) (Auto) % (0.0-2.0) Differential Total Cells Counted 100 Neutrophils % (Manual) 70 % (45-75) Lymphocytes % (Manual) 20 % (20-45) Monocytes % (Manual) 7 % (1-10) Eosinophils % (Manual) 3 % (0-3) Basophils % (Manual) 0 % (0-2) Band Neutrophils 0 % (0-8) Platelet Estimate Adequate Platelet Morphology Normal Hypochromasia 2+ Anisocytosis 1+ Sodium Level 144 MMOL/L (136-145) Potassium Level 3.7 MMOL/L (3.5-5.1) Chloride Level 112 MMOL/L (98-107) H Carbon Dioxide Level 22 MMOL/L (21-32) Anion Gap 10 mmol/L (5-15) Blood Urea Nitrogen 39 mg/dL (7-18) H Creatinine 1.6 MG/DL (0.55-1.30) H Estimat Glomerular Filtration Rate 34.7 mL/min (>60) Glucose Level 122 MG/DL (74-106) H Calcium Level 8.9 MG/DL (8.5-10.1) Total Bilirubin 0.8 MG/DL (0.2-1.0) Aspartate Amino Transf (AST/SGOT) 47 U/L (15-37) H Alanine Aminotransferase (ALT/SGPT) 53 U/L (12-78) Alkaline Phosphatase 1092 U/L (46-116) H Pro-B-Type Natriuretic Peptide 42321 pg/mL (0-125) H Total Protein 7.8 G/DL (6.4-8.2) Albumin 2.6 G/DL (3.4-5.0) L Globulin 5.2 g/dL Albumin/Globulin Ratio 0.5 (1.0-2.7) L Vancomycin Level Trough 16.1 ug/mL (5.0-12.0) H Microbiology Date/Time Source Procedure Growth Status 11/26/18 13:34 Other(Specify in comment) Catheter Tip Culture - Preliminary NO GROWTH AFTER 24 HOURS Resulted 11/26/18 13:26 Other(Specify in comment) Gram Stain - Final Resulted 11/26/18 13:26 Other(Specify in comment) Aerobic Culture - Preliminary NO GROWTH AFTER 24 HOURS Resulted 11/26/18 13:26 Other(Specify in comment) Anaerobic Culture - Preliminary NO GROWTH AFTER 24 HOURS Resulted 11/26/18 13:22 Other(Specify in comment) Anaerobic Culture - Preliminary NO GROWTH AFTER 24 HOURS Resulted 11/26/18 13:28 Chest Gram Stain - Final Resulted 11/26/18 13:28 Chest Aerobic Culture - Preliminary NO GROWTH AFTER 24 HOURS Resulted 11/26/18 13:28 Chest Anaerobic Culture - Preliminary NO GROWTH AFTER 24 HOURS Resulted Lani Lyle MD Nov 28, 2018 19:20
[2018-11-28] MEDS: Tylenol #3 tab (300mg/30mg) GT PRN (19:23)
--- NOTE | 2018-11-28 20:52 | Cardiology Progress Note ---
Assessment/Plan Assessment/Plan pacemaker pocket infection s/p pacer explantation 11/26/2018 bacteremia staph epi HTN anxiety chronic resp failure s/p trach s/p PEG thoracic aortic dissection s/p repair early 2017 [facility] resident bilateral infiltrates (patricia performed 11/27/2018 neg for vegetation ) repeat cx so far neg as of 11/27/2018 i personally reviewed echo last week no vegetation noted there is AR n TR nto sig s/p pacer explanted by dr fleming keep on iv abx sedated wbc increaed cxr showing increased infiltrates alk phosph increae check ggtp bp med adjusted watch cr with diuretics Subjective ROS Limited/Unobtainable: Yes Subjective on vent in icu sedated Objective Last 24 Hour Vital Signs Date Time Temp Pulse Resp B/P (MAP) Pulse Ox O2 Delivery O2 Flow Rate FiO2 11/28/18 20:00 100 11/28/18 20:00 Mechanical Ventilator 11/28/18 20:00 57 23 147/64 (91) 93 11/28/18 19:54 68 20 97 Mechanical Ventilator 100 11/28/18 19:23 61 167/68 11/28/18 19:16 73 11/28/18 19:00 56 22 149/61 (90) 99 11/28/18 19:00 64 23 171/70 (103) 100 11/28/18 19:00 64 21 75 11/28/18 18:00 56 22 149/61 (90) 99 11/28/18 17:55 149/65 11/28/18 17:15 68 24 75 11/28/18 17:00 64 27 156/62 (93) 96 11/28/18 16:30 59 22 154/61 (92) 97 11/28/18 16:15 59 22 154/61 (92) 97 11/28/18 16:00 98.4 65 18 170/74 (106) 96 11/28/18 16:00 75 11/28/18 16:00 Mechanical Ventilator 11/28/18 16:00 50 11/28/18 15:45 65 18 170/74 (106) 96 11/28/18 15:30 20 Mechanical Ventilator 75 11/28/18 15:30 51 20 130/51 (77) 94 11/28/18 15:03 53 21 75 11/28/18 15:00 20 Mechanical Ventilator 75 11/28/18 15:00 51 21 131/51 (77) 95 11/28/18 14:30 52 13 134/49 (77) 95 11/28/18 14:00 58 21 139/53 (81) 97 11/28/18 14:00 21 Mechanical Ventilator 75 11/28/18 13:30 67 26 165/72 (103) 98 11/28/18 13:23 168/59 11/28/18 13:10 59 20 85 11/28/18 13:00 62 22 168/59 (95) 90 11/28/18 13:00 Mechanical Ventilator 70 11/28/18 12:45 67 21 178/65 (102) 92 11/28/18 12:39 70 27 183/75 (111) 90 11/28/18 12:30 71 18 182/88 (119) 95 11/28/18 12:30 24 Mechanical Ventilator 70 11/28/18 12:00 Mechanical Ventilator 11/28/18 12:00 53 11/28/18 12:00 90 11/28/18 12:00 136/52 11/28/18 12:00 98.7 51 21 134/53 (80) 93 11/28/18 11:45 51 21 134/53 (80) 93 11/28/18 11:30 20 Mechanical Ventilator 70 11/28/18 11:30 52 17 140/53 (82) 92 11/28/18 11:15 55 20 154/56 (88) 93 11/28/18 11:00 55 20 154/56 (88) 93 11/28/18 10:45 21 Mechanical Ventilator 70 11/28/18 10:45 60 20 172/65 (100) 94 11/28/18 10:34 61 23 70 11/28/18 10:00 51 19 144/57 (86) 92 11/28/18 09:59 70 11/28/18 09:50 70 11/28/18 09:45 50 15 133/54 (80) 100 11/28/18 09:43 18 Mechanical Ventilator 100 11/28/18 09:42 50 Mechanical Ventilator 100 11/28/18 09:30 52 20 137/60 (85) 100 11/28/18 09:15 50 18 130/54 (79) 99 11/28/18 09:11 51 20 100 11/28/18 09:00 52 15 128/53 (78) 99 11/28/18 08:45 Mechanical Ventilator 100 11/28/18 08:45 56 13 141/61 (87) 96 11/28/18 08:40 58 141/61 11/28/18 08:30 61 20 141/61 (87) 99 11/28/18 08:30 20 Mechanical Ventilator 100 11/28/18 08:15 66 19 150/64 (92) 98 11/28/18 08:00 Mechanical Ventilator 11/28/18 08:00 80 11/28/18 08:00 99.0 66 19 150/64 (92) 98 11/28/18 08:00 20 Mechanical Ventilator 100 11/28/18 08:00 100 11/28/18 07:30 78 21 175/70 (105) 98 11/28/18 07:01 79 26 100 11/28/18 07:00 60 20 154/90 (111) 96 11/28/18 07:00 20 Mechanical Ventilator 100 11/28/18 06:30 68 18 153/65 (94) 94 11/28/18 06:00 20 Mechanical Ventilator 100 11/28/18 06:00 66 21 152/60 (90) 96 11/28/18 05:41 143/66 11/28/18 05:30 65 20 143/66 (91) 98 11/28/18 05:00 68 21 100 11/28/18 05:00 68 20 162/62 (95) 97 11/28/18 05:00 20 Mechanical Ventilator 100 11/28/18 04:30 70 20 188/73 (111) 88 11/28/18 04:00 100.1 57 17 155/60 (91) 92 11/28/18 04:00 17 Mechanical Ventilator 65 11/28/18 04:00 Mechanical Ventilator 11/28/18 03:30 56 20 154/61 (92) 96 11/28/18 03:06 59 11/28/18 03:04 20 Mechanical Ventilator 100 11/28/18 03:00 58 20 149/56 (87) 94 11/28/18 03:00 20 Mechanical Ventilator 65 11/28/18 02:48 58 20 100 11/28/18 02:30 56 20 135/50 (78) 88 11/28/18 02:00 20 Mechanical Ventilator 65 11/28/18 02:00 63 20 133/59 (83) 89 11/28/18 01:30 65 20 147/55 (85) 92 11/28/18 01:11 67 20 159/66 (97) 93 11/28/18 01:00 77 22 65 11/28/18 01:00 24 Mechanical Ventilator 65 11/28/18 01:00 73 24 181/66 (104) 93 11/28/18 00:30 62 20 134/74 (94) 96 11/28/18 00:00 Mechanical Ventilator 11/28/18 00:00 100.4 65 20 161/70 (100) 96 11/28/18 00:00 20 Mechanical Ventilator 65 11/27/18 23:43 146/93 11/27/18 23:30 64 17 146/93 (110) 94 11/27/18 23:05 66 11/27/18 23:04 71 20 65 11/27/18 23:00 16 Mechanical Ventilator 65 11/27/18 23:00 66 16 168/78 (108) 92 11/27/18 22:30 61 20 155/70 (98) 92 11/27/18 22:00 57 20 168/64 (98) 96 11/27/18 22:00 20 Mechanical Ventilator 65 11/27/18 21:30 54 20 168/66 (100) 96 11/27/18 21:03 52 20 65 11/27/18 21:00 20 Mechanical Ventilator 65 11/27/18 21:00 52 20 154/61 (92) 96 General Appearance: no apparent distress, on vent, patient on isolation Neck: supple Cardiovascular: normal rate Respiratory/Chest: lungs clear Abdomen: normal bowel sounds, non tender, soft Extremities: no swelling Intake and Output 11/27/18 11/28/18 19:00 07:00 Intake Total 1296.993 ml 1198.34 ml Output Total 455 ml 575 ml Balance 841.993 ml 623.34 ml Intake Free Water 120 ml 50 ml IV Total 936.993 ml 608.34 ml Tube Feeding 240 ml 480 ml Other 60 ml Output Urine Total 455 ml 575 ml Laboratory Tests Test 11/28/18 06:45 White Blood Count 19.4 K/UL (4.8-10.8) H Red Blood Count 3.13 M/UL (4.20-5.40) L Hemoglobin 8.9 G/DL (12.0-16.0) L Hematocrit 28.0 % (37.0-47.0) L Mean Corpuscular Volume 89 FL (80-99) Mean Corpuscular Hemoglobin 28.4 PG (27.0-31.0) Mean Corpuscular Hemoglobin Concent 31.9 G/DL (32.0-36.0) L Red Cell Distribution Width 15.2 % (11.6-14.8) H Platelet Count 368 K/UL (150-450) Mean Platelet Volume 5.6 FL (6.5-10.1) L Neutrophils (%) (Auto) % (45.0-75.0) Lymphocytes (%) (Auto) % (20.0-45.0) Monocytes (%) (Auto) % (1.0-10.0) Eosinophils (%) (Auto) % (0.0-3.0) Basophils (%) (Auto) % (0.0-2.0) Differential Total Cells Counted 100 Neutrophils % (Manual) 70 % (45-75) Lymphocytes % (Manual) 20 % (20-45) Monocytes % (Manual) 7 % (1-10) Eosinophils % (Manual) 3 % (0-3) Basophils % (Manual) 0 % (0-2) Band Neutrophils 0 % (0-8) Platelet Estimate Adequate Platelet Morphology Normal Hypochromasia 2+ Anisocytosis 1+ Sodium Level 144 MMOL/L (136-145) Potassium Level 3.7 MMOL/L (3.5-5.1) Chloride Level 112 MMOL/L (98-107) H Carbon Dioxide Level 22 MMOL/L (21-32) Anion Gap 10 mmol/L (5-15) Blood Urea Nitrogen 39 mg/dL (7-18) H Creatinine 1.6 MG/DL (0.55-1.30) H Estimat Glomerular Filtration Rate 34.7 mL/min (>60) Glucose Level 122 MG/DL (74-106) H Calcium Level 8.9 MG/DL (8.5-10.1) Total Bilirubin 0.8 MG/DL (0.2-1.0) Aspartate Amino Transf (AST/SGOT) 47 U/L (15-37) H Alanine Aminotransferase (ALT/SGPT) 53 U/L (12-78) Alkaline Phosphatase 1092 U/L (46-116) H Pro-B-Type Natriuretic Peptide 20654 pg/mL (0-125) H Total Protein 7.8 G/DL (6.4-8.2) Albumin 2.6 G/DL (3.4-5.0) L Globulin 5.2 g/dL Albumin/Globulin Ratio 0.5 (1.0-2.7) L Vancomycin Level Trough 16.1 ug/mL (5.0-12.0) H Microbiology Date/Time Source Procedure Growth Status 11/26/18 13:34 Other(Specify in comment) Catheter Tip Culture - Preliminary NO GROWTH AFTER 24 HOURS Resulted 11/26/18 13:26 Other(Specify in comment) Gram Stain - Final Resulted 11/26/18 13:26 Other(Specify in comment) Aerobic Culture - Preliminary NO GROWTH AFTER 24 HOURS Resulted 11/26/18 13:26 Other(Specify in comment) Anaerobic Culture - Preliminary NO GROWTH AFTER 24 HOURS Resulted 11/26/18 13:22 Other(Specify in comment) Anaerobic Culture - Preliminary NO GROWTH AFTER 24 HOURS Resulted 11/26/18 13:28 Chest Gram Stain - Final Resulted 11/26/18 13:28 Chest Aerobic Culture - Preliminary NO GROWTH AFTER 24 HOURS Resulted 11/26/18 13:28 Chest Anaerobic Culture - Preliminary NO GROWTH AFTER 24 HOURS Resulted Carlos Rooney MD Nov 28, 2018 20:52
[2018-11-28] MEDS: Miralax 17gm pkt GT SCH ×2 (21:58→22:00)
[2018-11-28] MEDS: LORazepam Inj 2mg/ml 1ml IV PRN (22:16)
[2018-11-28] MEDS: HydrALAZINE 50mg tab GT SCH (23:43)
[2018-11-29] VITALS (41 sets, daily range): BP systolic 125–213; BP diastolic 44–118
[2018-11-29] MEDS: Haloperidol 5mg/ml Inj IM PRN (00:49)
[2018-11-29] MEDS: HydrALAZINE 10mg Tab GT PRN (02:00)
[2018-11-29] MEDS: LORazepam Inj 2mg/ml 1ml IV PRN ×2 (02:56→19:38)
[2018-11-29] MEDS: Albuterol/Ipratropium 3ml neb HHN PRN ×2 (03:57→23:13)
[2018-11-29 05:12] LABS: HEMATOCRIT 27.7 % (37.0-47.0); MEAN CORPUSCULAR VOLUME 88 FL (80-99); PLATELET COUNT 408 K/UL (150-450); RED BLOOD COUNT 3.14 M/UL (4.20-5.40); RED CELL DISTRIBUTION WIDTH 15.1 % (11.6-14.8); WHITE BLOOD COUNT 21.2 K/UL (4.8-10.8)
[2018-11-29 05:30] LABS: ALANINE AMINOTRANSFERASE 42 U/L (12-78); ALBUMIN 2.4 G/DL (3.4-5.0); ALBUMIN/GLOBULIN RATIO 0.5 (1.0-2.7); ALKALINE PHOSPHATASE 957 U/L (46-116); ANION GAP 10 mmol/L (5-15); ASPARTATE AMINO TRANSFERASE 32 U/L (15-37); BILIRUBIN,TOTAL 0.8 MG/DL (0.2-1.0); BLOOD UREA NITROGEN 36 mg/dL (7-18); CARBON DIOXIDE 24 MMOL/L (21-32); CHLORIDE 113 MMOL/L (98-107); CREATININE 1.4 MG/DL (0.55-1.30); POTASSIUM 3.3 MMOL/L (3.5-5.1); SODIUM 146 MMOL/L (136-145)
[2018-11-29] MEDS: HydrALAZINE 50mg tab GT SCH ×4 (05:41→23:33)
--- NOTE | 2018-11-29 06:15 | Progress Note ---
DATE: 11/28/2018 SUBJECTIVE: The patient is afebrile and hemodynamically stable. PHYSICAL EXAMINATION: VITAL SIGNS: Blood pressure is 117/77, pulse is 61, respirations are 23, and temperature is 98.2. HEENT: Eyes were normal. ENT, mucous membranes were moist and intact. NECK: Supple with no JVD without lymph nodes. Tracheostomy site is clean. LUNGS: Clear without rhonchi, rales, or wheezing. Secretions are small, thin, and carlos. HEART: Normal sounds with regular beats. There is no S3, S4, or pericardial rub. ABDOMEN: Soft and nontender with normal bowel sounds. Gastrostomy site is clean. EXTREMITIES: Warm without cyanosis, clubbing, or edema. LABORATORY AND DIAGNOSTIC DATA: Hemoglobin is 8.9, hematocrit 28.7 with MCV of 89, WBC of 19.4, and platelets of 368,000. WBC of 15.1 yesterday. Her BUN and creatinine are 39 and 1.6 respectively. Her sodium is 144, potassium 3.7, chloride 112, and CO2 is 22. SGOT was 47 and SGPT was 53, and alkaline phosphatase 1092. ProBNP was more than 26,000. IMPRESSION AND PLAN: The patient has acute renal failure. . Leukocytosis will be evaluated by the Infectious Disease. Repeat laboratory test will be done in a.m. The patient is moderately improved. Repeat laboratory tests will be done. Lucas Dong M.D. DR: VICKIE JOB#: [id number] CC:
[2018-11-29] MEDS: Vancomycin 750mg/NS 275ml IVPB SCH ×2 (08:13)
[2018-11-29] MEDS: Piperacillin/Tazobactam 3.375 GM in NS 110 ML IVPB SCH (08:13)
[2018-11-29] MEDS: Thiamine 100mg tab GT SCH ×2 (08:13→09:00)
[2018-11-29] MEDS: Heparin 5000 units/ml inj SUBQ SCH ×2 (08:17→20:55)
--- NOTE | 2018-11-29 10:01 | Pulmonolgy Critical Care Note ---
Critical Care - Asmt/Plan Problems: (1) Chronic respiratory failure (2) Chest pain (3) JAVIER (acute kidney injury) (4) Anemia (5) Ventilator dependence (6) S/P aortic dissection repair (7) Tracheostomy in place (8) Feeding by G-tube (9) Bacteremia Respiratory: monitor respiratory rate, adjust FIO2, CXR Cardiac: continue pressors, continue to monitor HR/BP Renal: F/U I&O, keep IV fluid, increase IV fluid, check electrolytes Infectious Disease: check cultures, continue antibiotics Gastrointestinal: continue feedings/current rate Endocrine: monitor blood sugar Hematologic: monitor H/H, transfuse if hgb<8.5 Neurologic: PRN Ativan, PRN Morphine, keep patient comfortable Affect: PRN ativan Prophylaxis: Protonix Disposition: keep in ICU Notes 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, 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 Discussed with: nurses, consultants, 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 endoscopy - Objective Last 24 Hour Vital Signs Date Time Temp Pulse Resp B/P (MAP) Pulse Ox O2 Delivery O2 Flow Rate FiO2 11/29/18 09:15 60 21 75 11/29/18 08:00 75 11/29/18 08:00 97.7 62 21 151/98 (115) 93 11/29/18 07:00 63 20 159/73 (101) 99 11/29/18 06:45 74 24 182/118 (139) 98 11/29/18 06:45 74 28 75 11/29/18 06:30 62 23 137/101 (113) 100 11/29/18 06:15 44 18 171/64 (99) 97 11/29/18 06:00 74 23 100 11/29/18 05:45 63 24 160/62 (94) 97 11/29/18 05:41 166/62 11/29/18 05:30 60 21 166/62 (96) 98 11/29/18 05:25 59 22 155/86 (109) 98 11/29/18 05:15 61 19 100 11/29/18 05:00 55 19 143/58 (86) 99 11/29/18 05:00 60 22 75 11/29/18 04:45 51 20 128/57 (80) 98 11/29/18 04:30 42 19 131/44 (73) 88 11/29/18 04:15 59 21 132/49 (76) 98 11/29/18 04:03 36 20 132/49 (76) 96 11/29/18 04:00 35 11/29/18 04:00 Mechanical Ventilator 11/29/18 04:00 97.5 35 21 134/55 (81) 97 11/29/18 04:00 75 11/29/18 03:59 56 21 152/66 (94) 95 11/29/18 03:58 64 24 99 Mechanical Ventilator 56 21 98 11/29/18 03:45 37 22 213/94 (133) 100 11/29/18 03:30 50 20 125/58 (80) 95 11/29/18 03:20 50 20 75 11/29/18 03:15 59 20 133/55 (81) 95 11/29/18 03:05 20 Mechanical Ventilator 75 11/29/18 03:00 58 21 138/62 (87) 96 11/29/18 02:56 22 Mechanical Ventilator 75 11/29/18 02:45 95 25 188/104 (132) 100 11/29/18 02:30 61 22 165/68 (100) 99 11/29/18 02:15 57 21 152/63 (92) 100 11/29/18 02:00 76 26 173/71 (105) 98 11/29/18 02:00 175/86 11/29/18 01:57 76 24 175/86 (115) 100 11/29/18 01:29 65 21 75 11/29/18 01:00 62 21 143/57 (85) 100 11/29/18 00:00 98.1 60 22 149/62 (91) 98 11/29/18 00:00 Mechanical Ventilator 11/28/18 23:45 73 25 170/69 (102) 98 11/28/18 23:43 150/67 11/28/18 23:30 65 20 150/67 (94) 93 11/28/18 23:15 62 24 139/53 (81) 92 11/28/18 23:10 61 23 75 11/28/18 23:05 62 11/28/18 23:00 64 25 146/55 (85) 93 11/28/18 22:30 86 28 170/77 (108) 93 11/28/18 22:00 96 34 210/94 (132) 96 11/28/18 21:15 60 22 75 11/28/18 21:00 55 21 148/62 (90) 96 11/28/18 20:00 100 11/28/18 20:00 Mechanical Ventilator 11/28/18 20:00 98.2 57 23 147/64 (91) 93 11/28/18 19:54 68 20 97 Mechanical Ventilator 100 11/28/18 19:23 61 167/68 11/28/18 19:16 73 11/28/18 19:00 56 22 149/61 (90) 99 11/28/18 19:00 64 23 171/70 (103) 100 11/28/18 19:00 64 21 75 11/28/18 18:00 56 22 149/61 (90) 99 11/28/18 17:55 149/65 11/28/18 17:15 68 24 75 11/28/18 17:00 64 27 156/62 (93) 96 11/28/18 16:30 59 22 154/61 (92) 97 11/28/18 16:15 59 22 154/61 (92) 97 11/28/18 16:00 98.4 65 18 170/74 (106) 96 11/28/18 16:00 75 11/28/18 16:00 Mechanical Ventilator 11/28/18 16:00 50 11/28/18 15:45 65 18 170/74 (106) 96 11/28/18 15:30 20 Mechanical Ventilator 75 11/28/18 15:30 51 20 130/51 (77) 94 11/28/18 15:03 53 21 75 11/28/18 15:00 20 Mechanical Ventilator 75 11/28/18 15:00 51 21 131/51 (77) 95 11/28/18 14:30 52 13 134/49 (77) 95 11/28/18 14:00 58 21 139/53 (81) 97 11/28/18 14:00 21 Mechanical Ventilator 75 11/28/18 13:30 67 26 165/72 (103) 98 11/28/18 13:23 168/59 11/28/18 13:10 59 20 85 11/28/18 13:00 62 22 168/59 (95) 90 11/28/18 13:00 Mechanical Ventilator 70 11/28/18 12:45 67 21 178/65 (102) 92 11/28/18 12:39 70 27 183/75 (111) 90 11/28/18 12:30 71 18 182/88 (119) 95 11/28/18 12:30 24 Mechanical Ventilator 70 11/28/18 12:00 Mechanical Ventilator 11/28/18 12:00 53 11/28/18 12:00 90 11/28/18 12:00 136/52 11/28/18 12:00 98.7 51 21 134/53 (80) 93 11/28/18 11:45 51 21 134/53 (80) 93 11/28/18 11:30 20 Mechanical Ventilator 70 11/28/18 11:30 52 17 140/53 (82) 92 11/28/18 11:15 55 20 154/56 (88) 93 11/28/18 11:00 55 20 154/56 (88) 93 11/28/18 10:45 21 Mechanical Ventilator 70 11/28/18 10:45 60 20 172/65 (100) 94 11/28/18 10:34 61 23 70 Status: awake, obtunded Condition: critical HEENT: atraumatic Neck: full ROM Heart: HR/BP stable Abdomen: soft, active bowel sounds Extremities: no C/C/E Micro: Microbiology Date/Time Source Procedure Growth Status 11/27/18 16:50 Blood Blood Culture - Preliminary NO GROWTH AFTER 24 HOURS Resulted 11/27/18 16:40 Blood Blood Culture - Preliminary NO GROWTH AFTER 24 HOURS Resulted 11/26/18 13:34 Other(Specify in comment) Catheter Tip Culture - Preliminary NO GROWTH AFTER 24 HOURS Resulted 11/26/18 13:26 Other(Specify in comment) Gram Stain - Final Resulted 11/26/18 13:26 Other(Specify in comment) Aerobic Culture - Preliminary NO GROWTH AFTER 48 HOURS Resulted 11/26/18 13:26 Other(Specify in comment) Anaerobic Culture - Preliminary NO GROWTH AFTER 24 HOURS Resulted 11/26/18 13:22 Other(Specify in comment) Anaerobic Culture - Preliminary NO GROWTH AFTER 24 HOURS Resulted 11/26/18 13:28 Chest Gram Stain - Final Resulted 11/26/18 13:28 Chest Aerobic Culture - Preliminary NO GROWTH AFTER 24 HOURS Resulted 11/26/18 13:28 Chest Anaerobic Culture - Preliminary NO GROWTH AFTER 24 HOURS Resulted Accucheck: 218 Critical Care - Subjective ROS Limited/Unobtainable: Yes Condition: critical EKG Rhythm: Sinus Rhythm FI02: 75 Vent Support Breath Rate: 20 Vent Support Mode: AC Vent Tidal Volume: 600 Sputum Amount: Scant PEEP: 10.0 PIP: 41 Tube Feeding Amount: 0 I&O: Intake and Output 11/28/18 11/29/18 18:59 06:59 Intake Total 1388.916 ml 811.0 ml Output Total 470 ml 2280 ml Balance 918.916 ml -1469.0 ml Intake Free Water 150 ml IV Total 758.916 ml 191.0 ml Tube Feeding 480 ml 400 ml Other 220 ml Output Urine Total 470 ml 2280 ml # Bowel Movements 4 CXR: bilateral infiltrate Labs: Laboratory Tests Test 11/29/18 03:45 White Blood Count 21.2 K/UL (4.8-10.8) H Red Blood Count 3.14 M/UL (4.20-5.40) L Hemoglobin 9.0 G/DL (12.0-16.0) L Hematocrit 27.7 % (37.0-47.0) L Mean Corpuscular Volume 88 FL (80-99) Mean Corpuscular Hemoglobin 28.6 PG (27.0-31.0) Mean Corpuscular Hemoglobin Concent 32.4 G/DL (32.0-36.0) Red Cell Distribution Width 15.1 % (11.6-14.8) H Platelet Count 408 K/UL (150-450) Mean Platelet Volume 6.4 FL (6.5-10.1) L Neutrophils (%) (Auto) % (45.0-75.0) Lymphocytes (%) (Auto) % (20.0-45.0) Monocytes (%) (Auto) % (1.0-10.0) Eosinophils (%) (Auto) % (0.0-3.0) Basophils (%) (Auto) % (0.0-2.0) Differential Total Cells Counted 100 Neutrophils % (Manual) 84 % (45-75) H Lymphocytes % (Manual) 8 % (20-45) L Monocytes % (Manual) 6 % (1-10) Eosinophils % (Manual) 2 % (0-3) Basophils % (Manual) 0 % (0-2) Band Neutrophils 0 % (0-8) Platelet Estimate Adequate Platelet Morphology Normal Anisocytosis 1+ Sodium Level 146 MMOL/L (136-145) H Potassium Level 3.3 MMOL/L (3.5-5.1) L Chloride Level 113 MMOL/L (98-107) H Carbon Dioxide Level 24 MMOL/L (21-32) Anion Gap 10 mmol/L (5-15) Blood Urea Nitrogen 36 mg/dL (7-18) H Creatinine 1.4 MG/DL (0.55-1.30) H Estimat Glomerular Filtration Rate 40.5 mL/min (>60) Glucose Level 123 MG/DL (74-106) H Calcium Level 9.0 MG/DL (8.5-10.1) Total Bilirubin 0.8 MG/DL (0.2-1.0) Aspartate Amino Transf (AST/SGOT) 32 U/L (15-37) Alanine Aminotransferase (ALT/SGPT) 42 U/L (12-78) Alkaline Phosphatase 957 U/L (46-116) H Pro-B-Type Natriuretic Peptide > 29062 pg/mL (0-125) H Total Protein 7.5 G/DL (6.4-8.2) Albumin 2.4 G/DL (3.4-5.0) L Globulin 5.1 g/dL Albumin/Globulin Ratio 0.5 (1.0-2.7) L Ranjith Arora MD Nov 29, 2018 10:01
[2018-11-29] MEDS ORDERED: Pantoprazole Inj IVP SCH (10:15)
--- NOTE | 2018-11-29 10:26 | Diagnostic Imaging Report ---
Indication: Shortness of breath Technique: One view of the chest Comparison: 11/28/2018 Findings: Stable tracheostomy. Median sternotomy sutures again demonstrated. There is suggestion of increased atelectasis in the right perihilar region. Dense peripheral left upper lobe consolidation, bilateral interstitial and airspace congestion, left pleural effusion are unchanged Impression: Increased right perihilar atelectasis Otherwise stable findings as described
--- NOTE | 2018-11-29 12:38 | Infectious Diseases Prog Note ---
Assessment/Plan Assessment/Plan Assessment: Acute hypoxic respiratory failure s/p intubation 11/23- ?ARDS Fever; improving Leukocytosis, recurrent- increased- r/oMDRO, abscess -u.a wbc 5-10, nit neg, leuk +1 PPM site (pocket) infection (redness and pain, bacteremia) and likely pocket abscess- no vegetation seen on ABBIE -11/27 SP ABBIE: no evidence for vegetation on any of the valves -11/26 SP PPM removal: -OR findings:The fibrous capsule enclosing the generator was then opened and there was a [id number] amount of yellowish fluid drainage. The generator was then removed.Atrial and ventricular leads were detached. The necrotic tissue of the pocket was then removed and the pocket was flushed with an antibiotic solution. -Capsule, wound tissue and lead tip cx: NTD -2d echo: no vegetation seen -US chest: 4.6 x 3.4 x 0.9 cm hypoechoic/anechoic area overlying left chest pacemaker power pack. This could represent either a discrete fluid collection or a focal area of very edematous tissue. Infected fluid pocket also possible. Gram positive bacteremia- real bacteremia- 2ry to above -11/18 Bcx 3/4 S. epi; 11/20 Bcx neg; 11/24 Bcx NTD; 11/27 Bcx NTD Probable PNA -11/26 CXR: Slightly improved aeration of the right lung base. Otherwise mostly stable bilateral interstitial and airspace disease -CXR: etrocardiac consolidation, possibly pneumonia. Right basilar atelectasis -sp cx MRSA, ABC (I Ceftriaxone; otherwise S) Recent aspiration PNA and UTI (late September 2018) -u/a wbc 5-10, nit +, leuk +1; ucx >100k Enterobacter aerogenes (R ancef, nitro; otherwise S) -sp cx MRSA, ABC (I Ceftriaxone); repeat sp cx 11/28 p HTN anxiety chronic resp failure s/p trach s/p PEG thoracic aortic dissection s/p repair early 2017 [place] resident Plan: -Continue empiric IV Vancomycin #12 for S. epi bacteremia, PPM site infection and abscess and PNA - guidelines favor treatment for endocarditis in the setting of +pocket infection and bacteremia with Staph; expected end date 12/31/18; weekly CBC, BMP , Vanco through -in terms of device re-implantation, will await patient afebrile for at least 48hrs, leukocytosis resolved and repeat Bcx 11/27 (after device removal) negative in 72 hours -Switch empiric Zosyn #11 to Meropenem for PNA given worsening wbc -f.u cx -Monitor CBC/CMP, temperatures -Cards f/u -f/u repeat Bcx x2, OR cultures -Cdiff if diarrhea -f/u sp cx -If wbc remains elevated and when Cr better improved, will do CT chest abd/p w/ Thank you for this consultation. Will continue to follow along with you. Subjective Allergies: Coded Allergies: No Known Allergies (Unverified , 10/10/17) Subjective afebrile >24hrs wbc increased to 20 repeat BCx NTD remains intubated Cr improving Objective Vital Signs Last 24 Hour Vital Signs Date Time Temp Pulse Resp B/P (MAP) Pulse Ox O2 Delivery O2 Flow Rate FiO2 11/29/18 12:00 181/74 11/29/18 10:41 167/73 11/29/18 10:35 67 26 60 11/29/18 09:15 60 21 75 11/29/18 09:00 60 151/98 11/29/18 08:00 75 11/29/18 08:00 97.7 62 21 151/98 (115) 93 11/29/18 07:00 63 20 159/73 (101) 99 11/29/18 06:45 74 24 182/118 (139) 98 11/29/18 06:45 74 28 75 11/29/18 06:30 62 23 137/101 (113) 100 11/29/18 06:15 44 18 171/64 (99) 97 11/29/18 06:00 74 23 100 11/29/18 05:45 63 24 160/62 (94) 97 11/29/18 05:41 166/62 11/29/18 05:30 60 21 166/62 (96) 98 11/29/18 05:25 59 22 155/86 (109) 98 11/29/18 05:15 61 19 100 11/29/18 05:00 55 19 143/58 (86) 99 11/29/18 05:00 60 22 75 11/29/18 04:45 51 20 128/57 (80) 98 11/29/18 04:30 42 19 131/44 (73) 88 11/29/18 04:15 59 21 132/49 (76) 98 11/29/18 04:03 36 20 132/49 (76) 96 11/29/18 04:00 35 11/29/18 04:00 Mechanical Ventilator 11/29/18 04:00 97.5 35 21 134/55 (81) 97 11/29/18 04:00 75 11/29/18 03:59 56 21 152/66 (94) 95 11/29/18 03:58 64 24 99 Mechanical Ventilator 56 21 98 11/29/18 03:45 37 22 213/94 (133) 100 11/29/18 03:30 50 20 125/58 (80) 95 11/29/18 03:20 50 20 75 11/29/18 03:15 59 20 133/55 (81) 95 11/29/18 03:05 20 Mechanical Ventilator 75 11/29/18 03:00 58 21 138/62 (87) 96 11/29/18 02:56 22 Mechanical Ventilator 75 11/29/18 02:45 95 25 188/104 (132) 100 11/29/18 02:30 61 22 165/68 (100) 99 11/29/18 02:15 57 21 152/63 (92) 100 11/29/18 02:00 76 26 173/71 (105) 98 11/29/18 02:00 175/86 11/29/18 01:57 76 24 175/86 (115) 100 11/29/18 01:29 65 21 75 11/29/18 01:00 62 21 143/57 (85) 100 11/29/18 00:00 98.1 60 22 149/62 (91) 98 11/29/18 00:00 Mechanical Ventilator 11/28/18 23:45 73 25 170/69 (102) 98 11/28/18 23:43 150/67 11/28/18 23:30 65 20 150/67 (94) 93 11/28/18 23:15 62 24 139/53 (81) 92 11/28/18 23:10 61 23 75 11/28/18 23:05 62 11/28/18 23:00 64 25 146/55 (85) 93 11/28/18 22:30 86 28 170/77 (108) 93 11/28/18 22:00 96 34 210/94 (132) 96 11/28/18 21:15 60 22 75 11/28/18 21:00 55 21 148/62 (90) 96 11/28/18 20:00 100 11/28/18 20:00 Mechanical Ventilator 11/28/18 20:00 98.2 57 23 147/64 (91) 93 11/28/18 19:54 68 20 97 Mechanical Ventilator 100 11/28/18 19:23 61 167/68 11/28/18 19:16 73 11/28/18 19:00 56 22 149/61 (90) 99 11/28/18 19:00 64 23 171/70 (103) 100 11/28/18 19:00 64 21 75 11/28/18 18:00 56 22 149/61 (90) 99 11/28/18 17:55 149/65 11/28/18 17:15 68 24 75 11/28/18 17:00 64 27 156/62 (93) 96 11/28/18 16:30 59 22 154/61 (92) 97 11/28/18 16:15 59 22 154/61 (92) 97 11/28/18 16:00 98.4 65 18 170/74 (106) 96 11/28/18 16:00 75 11/28/18 16:00 Mechanical Ventilator 11/28/18 16:00 50 11/28/18 15:45 65 18 170/74 (106) 96 11/28/18 15:30 20 Mechanical Ventilator 75 11/28/18 15:30 51 20 130/51 (77) 94 11/28/18 15:03 53 21 75 11/28/18 15:00 20 Mechanical Ventilator 75 11/28/18 15:00 51 21 131/51 (77) 95 11/28/18 14:30 52 13 134/49 (77) 95 11/28/18 14:00 58 21 139/53 (81) 97 11/28/18 14:00 21 Mechanical Ventilator 75 11/28/18 13:30 67 26 165/72 (103) 98 11/28/18 13:23 168/59 11/28/18 13:10 59 20 85 11/28/18 13:00 62 22 168/59 (95) 90 11/28/18 13:00 Mechanical Ventilator 70 11/28/18 12:45 67 21 178/65 (102) 92 11/28/18 12:39 70 27 183/75 (111) 90 Height (Feet): 5 Height (Inches): 5.00 Weight (Pounds): 143 Objective HEENT: Eyes were normal. Pupils were round, equal, and reactive to light. Sclerae were white. Conjunctivae were pink. ENT, mucous membranes were not dehydrated. NECK: Supple. No lymphadenopathy. LUNGS: Clear. HEART: PMI was in fifth left intercostal space in midclavicular line. There was normal S1 and normal S2. There was no murmur. No arrhythmia. No S3. No S4. No pericardial rub. ABDOMEN: Soft, nontender without organomegaly. There were no masses palpable. Normal bowel sounds without bruits. There was no guarding. No rebound tenderness. No CVA tenderness. EXTREMITIES: No cyanosis, clubbing, and no edema. Extremities were warm. Microbiology Date/Time Source Procedure Growth Status 11/27/18 16:50 Blood Blood Culture - Preliminary NO GROWTH AFTER 24 HOURS Resulted 11/27/18 16:40 Blood Blood Culture - Preliminary NO GROWTH AFTER 24 HOURS Resulted 11/26/18 13:34 Other(Specify in comment) Catheter Tip Culture - Final NO GROWTH AFTER 48 HOURS Complete 11/26/18 13:26 Other(Specify in comment) Gram Stain - Final Resulted 11/26/18 13:26 Other(Specify in comment) Aerobic Culture - Preliminary NO GROWTH AFTER 48 HOURS Resulted 11/26/18 13:26 Other(Specify in comment) Anaerobic Culture - Preliminary NO GROWTH AFTER 48 HOURS Resulted 11/26/18 13:22 Other(Specify in comment) Anaerobic Culture - Preliminary NO GROWTH AFTER 48 HOURS Resulted 11/26/18 13:28 Chest Gram Stain - Final Resulted 11/26/18 13:28 Chest Aerobic Culture - Preliminary NO GROWTH AFTER 48 HOURS Resulted 11/26/18 13:28 Chest Anaerobic Culture - Preliminary NO GROWTH AFTER 48 HOURS Resulted Laboratory Tests Test 11/29/18 03:45 White Blood Count 21.2 K/UL (4.8-10.8) H Red Blood Count 3.14 M/UL (4.20-5.40) L Hemoglobin 9.0 G/DL (12.0-16.0) L Hematocrit 27.7 % (37.0-47.0) L Mean Corpuscular Volume 88 FL (80-99) Mean Corpuscular Hemoglobin 28.6 PG (27.0-31.0) Mean Corpuscular Hemoglobin Concent 32.4 G/DL (32.0-36.0) Red Cell Distribution Width 15.1 % (11.6-14.8) H Platelet Count 408 K/UL (150-450) Mean Platelet Volume 6.4 FL (6.5-10.1) L Neutrophils (%) (Auto) % (45.0-75.0) Lymphocytes (%) (Auto) % (20.0-45.0) Monocytes (%) (Auto) % (1.0-10.0) Eosinophils (%) (Auto) % (0.0-3.0) Basophils (%) (Auto) % (0.0-2.0) Differential Total Cells Counted 100 Neutrophils % (Manual) 84 % (45-75) H Lymphocytes % (Manual) 8 % (20-45) L Monocytes % (Manual) 6 % (1-10) Eosinophils % (Manual) 2 % (0-3) Basophils % (Manual) 0 % (0-2) Band Neutrophils 0 % (0-8) Platelet Estimate Adequate Platelet Morphology Normal Anisocytosis 1+ Sodium Level 146 MMOL/L (136-145) H Potassium Level 3.3 MMOL/L (3.5-5.1) L Chloride Level 113 MMOL/L (98-107) H Carbon Dioxide Level 24 MMOL/L (21-32) Anion Gap 10 mmol/L (5-15) Blood Urea Nitrogen 36 mg/dL (7-18) H Creatinine 1.4 MG/DL (0.55-1.30) H Estimat Glomerular Filtration Rate 40.5 mL/min (>60) Glucose Level 123 MG/DL (74-106) H Calcium Level 9.0 MG/DL (8.5-10.1) Total Bilirubin 0.8 MG/DL (0.2-1.0) Aspartate Amino Transf (AST/SGOT) 32 U/L (15-37) Alanine Aminotransferase (ALT/SGPT) 42 U/L (12-78) Alkaline Phosphatase 957 U/L (46-116) H Pro-B-Type Natriuretic Peptide > 62980 pg/mL (0-125) H Total Protein 7.5 G/DL (6.4-8.2) Albumin 2.4 G/DL (3.4-5.0) L Globulin 5.1 g/dL Albumin/Globulin Ratio 0.5 (1.0-2.7) L Current Medications Medications (Trade) Dose Ordered Sig/Penny Route PRN Reason Start Time Stop Time Status Last Admin Dose Admin Acetaminophen (Tylenol) 650 mg Q4H PRN ORAL Mild Pain/Temp > 100.5 11/23/18 14:00 12/19/18 13:59 11/27/18 08:32 Acetaminophen/ Codeine Phosphate (Tylenol #3) 1 tab Q6H PRN GT Moderate Pain (Pain Scale 4-6) 11/26/18 13:00 12/03/18 12:59 11/28/18 19:23 Albuterol/ Ipratropium (Albuterol/ Ipratropium) 3 ml Q4HRT PRN HHN sob 11/25/18 07:00 11/30/18 06:59 11/29/18 03:57 Amlodipine Besylate (Norvasc) 10 mg DAILY GT 11/24/18 09:00 12/19/18 08:59 11/27/18 08:33 Diphenhydramine HCl (Benadryl) 25 mg Q6H PRN IVP Itching 11/23/18 14:00 12/21/18 13:59 Fentanyl Citrate 2500 mcg/Sodium Chloride 250 ml @ 0 mls/hr Q24H IV 11/23/18 17:00 11/30/18 16:59 11/28/18 09:42 Haloperidol Lactate (Haldol) 5 mg Q6H PRN IM Agitation 11/24/18 00:30 12/24/18 00:29 11/29/18 00:49 Heparin Sodium (Porcine) (Heparin 5000 units/ml) 5,000 units EVERY 12 HOURS SUBQ 11/23/18 21:00 12/19/18 08:59 11/29/18 08:17 Hydralazine HCl (Apresoline) 10 mg Q4H PRN IV SBP > 160 mmHg 11/29/18 10:30 12/29/18 10:29 11/29/18 10:41 Hydralazine HCl (Apresoline) 50 mg Q6HR GT 11/29/18 00:00 12/28/18 00:00 11/29/18 05:41 Lorazepam (Ativan 2mg/ml 1ml) 1 mg Q4H PRN IV For Anxiety 11/24/18 10:15 12/01/18 06:14 11/29/18 02:56 Ondansetron HCl (Zofran) 4 mg Q8H PRN IM Nausea & Vomiting 11/23/18 14:00 12/19/18 13:59 Oxycodone/ Acetaminophen (Percocet 10/325) 1 tab Q4H PRN ORAL Severe Pain (Pain Scale 7-10) 11/23/18 14:00 11/29/18 13:59 11/29/18 02:01 Pantoprazole (Protonix) 40 mg DAILY IVP 11/29/18 10:15 12/29/18 10:14 11/29/18 10:42 Piperacillin Sod/ Tazobactam Sod 3.375 gm/Sodium Chloride 110 ml @ 27.5 mls/hr Q8H IVPB 11/24/18 08:00 12/01/18 07:59 11/29/18 08:13 Polyethylene Glycol (Miralax) 17 gm DAILY GT 11/28/18 21:45 12/28/18 21:44 11/28/18 21:58 Potassium Chloride 100 ml @ 100 mls/hr Q1HR IVPB 11/29/18 11:00 11/29/18 14:59 11/29/18 10:42 Thiamine HCl (Vitamin B1) 100 mg DAILY GT 11/24/18 09:00 12/19/18 08:59 11/28/18 08:21 Vancomycin HCl (Vanco rx to dose) 1 ea DAILY PRN MISC Per rx protocol 11/25/18 07:45 12/25/18 07:44 Vancomycin HCl 750 mg/Sodium Chloride 275 ml @ 183.333 mls/hr Q24H IVPB 11/26/18 08:00 12/01/18 07:59 11/29/18 08:13 Doreen Nino M.D. Nov 29, 2018 12:38
--- NOTE | 2018-11-29 13:26 | GI Initial Consult Note ---
History of Present Illness General Date patient seen: Nov 29, 2018 Time patient seen: 13:21 Reason for Hospitalization: General Complaint Referring physician: SHENA PRATER Reason for Consultation: GT MALFUNCTION Present Illness HPI Patient had a pacemaker placed recently. There is some pain in her chest in that area. There is also redness over the skin. There is some question of whether she was septic or not. No fever chills and stable vital signs by EMS bringing the patient in. The patient does complain about chest pain. She is unable to characterize the pain or state the number level. Patient is vent dependent. No apparent vomiting. Review of systems is unobtainable as the patient does not communicate. GI consulted for G-tube malfunction. ROS limited, patient nonverbal trach and vent dependent. G-tube dependent. It was reported that the G-tube has been clogged with unsuccessful attempts to unclog it. Patient seen, awake alert oriented no apparent distress. No active signs or symptoms of any nausea or vomiting. No reports of any GI bleeds. Labs reviewed; WBC 21.2, hemoglobin 9.0 , hematocrit 27.7, platelet count of 408, sodium 146, potassium 3.3, no transaminitis, alkaline phosphatase 957, creatinine 1.4, CEA 6.3. Unknown history of colonoscopy at this time. Home Meds Reported Medications Amiodarone Hcl* (CORDARONE*) 200 Mg Tablet, 200 MG ORAL DAILY, TAB 11/20/18 Carvedilol* (CARVEDILOL*) 3.125 Mg Tablet, 3.125 MG ORAL EVERY 12 HOURS, TAB 11/20/18 Bisacodyl (DULCOLAX) 10 Mg Supp.rect, 10 MG RC DAILY PRN for Constipation, SUPP 11/20/18 Na Phos,M-B/Na Phos,Di-Ba* (FLEET ENEMA*) 133 Ml Enema, 133 ML RECTAL DAILY PRN for Constipation, ML 0 Refills 11/20/18 Heparin Sod (Porcine) (HEPARIN SODIUM*) 5 000/1 Ml Vial, 5000 UNITS SUBQ EVERY 8 HOURS, VIAL 11/20/18 Glycopyrrolate (GLYCOPYRROLATE) 1 Mg Tablet, 1 MG GT THREE TIMES A DAY, TAB 11/20/18 Isosorbide Dinitrate* (ISORDIL*) 40 Mg Tablet.er, 40 MG GT THREE TIMES A DAY, TAB 0 Refills 11/20/18 Clonazepam* (KLONOPIN*) 1 Mg Tablet, 1 MG GT Q12HR, TAB 0 Refills 11/20/18 Melatonin (MELATONIN) 3 Mg Tablet, 6 MG GT BEDTIME PRN for Insomnia, TAB 11/20/18 Magnesium Hydroxide* (MILK OF MAGNESIA*) 400 Mg/5 Ml Oral.susp, 30 ML GT DAILY, ML 11/20/18 Hydrocodone Bit/Acetaminophen 10-325* (NORCO 10-325*) 1 Each Tablet, 1 TAB GT Q6H PRN for For Pain, TAB 0 Refills PRN PAIN 11/20/18 Metoclopramide Hcl* (METOCLOPRAMIDE HCL*) 10 Mg/10 Ml Solution, 10 MG ORAL EVERY 6 HOURS PRN for Nausea & Vomiting, ML 11/20/18 Sertraline Hcl* (ZOLOFT*) 100 Mg Tablet, 100 MG GT DAILY, TAB 11/20/18 Olanzapine (ZYPREXA) 7.5 Mg Tablet, 7.5 MG GT DAILY, TAB 0 Refills 11/20/18 Sennosides (SENNA) 8.6 Mg Tablet, 8.6 MG GT BEDTIME, TAB 11/20/18 Docusate Sodium* (COLACE*) 100 Mg Capsule, 100 MG GT DAILY, CAP 11/20/18 Hydralazine Hcl* (HYDRALAZINE HCL*) 100 Mg Tablet, 100 MG ORAL EVERY 8 HOURS, TAB 11/20/18 Metoprolol Tartrate* (METOPROLOL TARTRATE*) 50 Mg Tablet, 50 MG GT EVERY 12 HOURS, TAB 10/10/17 Amlodipine Besylate (Norvasc) 10 Mg Tablet, 10 MG GT DAILY, TAB 10/10/17 Med list reviewed/reconciled: Yes Allergies: Coded Allergies: No Known Allergies (Unverified , 10/10/17) Patient History PMH Narrative Patient discharged October 15 last year with these discharge diagnoses: Aspiration pneumonia with MRSA UTI with Enterobacter Acute kidney injury Acute encephalopathy likely secondary to infectious process Chronic respiratory failure with tracheostomy status Feeding by G-tube Parkinson disease Hypertension Anemia of chronic disease History of aortic dissection with repair Allergies: Coded Allergies: No Known Allergies (Unverified , 10/10/17) Patient History Limited by: medical condition Past Medical History: see triage record, old chart reviewed Past Surgical History: pacemaker, other - Tracheostomy gastrostomy tube, aortic dissection repair Social History Narrative detention facility and vent dependent Reviewed Nursing Documentation: PMH: Agreed; PSxH: Agreed Nursing Documentation-PMH Past Medical History: No History, Except For Hx Cardiac Problems: Yes Hx Hypertension: Yes Hx Cancer: No Hx Gastrointestinal Problems: No Hx Neurological Problems: No Hx Parkinson's Disease: Yes Hx Encephalitis: Yes Hx Dysphasia: Yes Social History: Denies: smoking, alcohol use, drug use, other Review of Systems All Other Systems: limited Physical Exam Vital Signs Date Time Temp Pulse Resp B/P (MAP) Pulse Ox O2 Delivery O2 Flow Rate FiO2 11/25/18 07:00 20 Mechanical Ventilator 100 11/25/18 07:00 62 161/69 (99) 98 11/25/18 08:00 98.3 11/25/18 20:19 45.0 Sp02 EP Interpretation: reviewed, normal Labs Laboratory Tests Test 11/29/18 03:45 White Blood Count 21.2 K/UL (4.8-10.8) H Red Blood Count 3.14 M/UL (4.20-5.40) L Hemoglobin 9.0 G/DL (12.0-16.0) L Hematocrit 27.7 % (37.0-47.0) L Mean Corpuscular Volume 88 FL (80-99) Mean Corpuscular Hemoglobin 28.6 PG (27.0-31.0) Mean Corpuscular Hemoglobin Concent 32.4 G/DL (32.0-36.0) Red Cell Distribution Width 15.1 % (11.6-14.8) H Platelet Count 408 K/UL (150-450) Mean Platelet Volume 6.4 FL (6.5-10.1) L Neutrophils (%) (Auto) % (45.0-75.0) Lymphocytes (%) (Auto) % (20.0-45.0) Monocytes (%) (Auto) % (1.0-10.0) Eosinophils (%) (Auto) % (0.0-3.0) Basophils (%) (Auto) % (0.0-2.0) Differential Total Cells Counted 100 Neutrophils % (Manual) 84 % (45-75) H Lymphocytes % (Manual) 8 % (20-45) L Monocytes % (Manual) 6 % (1-10) Eosinophils % (Manual) 2 % (0-3) Basophils % (Manual) 0 % (0-2) Band Neutrophils 0 % (0-8) Platelet Estimate Adequate Platelet Morphology Normal Anisocytosis 1+ Sodium Level 146 MMOL/L (136-145) H Potassium Level 3.3 MMOL/L (3.5-5.1) L Chloride Level 113 MMOL/L (98-107) H Carbon Dioxide Level 24 MMOL/L (21-32) Anion Gap 10 mmol/L (5-15) Blood Urea Nitrogen 36 mg/dL (7-18) H Creatinine 1.4 MG/DL (0.55-1.30) H Estimat Glomerular Filtration Rate 40.5 mL/min (>60) Glucose Level 123 MG/DL (74-106) H Calcium Level 9.0 MG/DL (8.5-10.1) Total Bilirubin 0.8 MG/DL (0.2-1.0) Aspartate Amino Transf (AST/SGOT) 32 U/L (15-37) Alanine Aminotransferase (ALT/SGPT) 42 U/L (12-78) Alkaline Phosphatase 957 U/L (46-116) H Pro-B-Type Natriuretic Peptide > 62500 pg/mL (0-125) H Total Protein 7.5 G/DL (6.4-8.2) Albumin 2.4 G/DL (3.4-5.0) L Globulin 5.1 g/dL Albumin/Globulin Ratio 0.5 (1.0-2.7) L General Appearance: no apparent distress Head: normocephalic EENT: PERRL/EOMI, normal ENT inspection Neck: supple Respiratory: normal breath sounds, no respiratory distress Cardiovascular: normal rate Gastrointestinal: normal inspection, non tender, soft, normal bowel sounds, non -distended Rectal: deferred Genitourinary: no CVA tenderness Musculoskeletal: normal inspection, back normal Neurologic: alert, responsive Psychiatric: normal inspection Skin: normal inspection, normal color, no rash, warm/dry, palpation normal, well hydrated Lymphatic: normal inspection, no adenopathy Current Medications Current Medications Medications (Trade) Dose Ordered Sig/Penny Route PRN Reason Start Time Stop Time Status Last Admin Dose Admin Acetaminophen (Tylenol) 650 mg Q4H PRN ORAL Mild Pain/Temp > 100.5 11/23/18 14:00 12/19/18 13:59 11/27/18 08:32 Acetaminophen/ Codeine Phosphate (Tylenol #3) 1 tab Q6H PRN GT Moderate Pain (Pain Scale 4-6) 11/26/18 13:00 12/03/18 12:59 11/28/18 19:23 Albuterol/ Ipratropium (Albuterol/ Ipratropium) 3 ml Q4HRT PRN HHN sob 11/25/18 07:00 11/30/18 06:59 11/29/18 03:57 Amlodipine Besylate (Norvasc) 10 mg DAILY GT 11/24/18 09:00 12/19/18 08:59 11/27/18 08:33 Diphenhydramine HCl (Benadryl) 25 mg Q6H PRN IVP Itching 11/23/18 14:00 12/21/18 13:59 Fentanyl Citrate 2500 mcg/Sodium Chloride 250 ml @ 0 mls/hr Q24H IV 11/23/18 17:00 11/30/18 16:59 11/28/18 09:42 Haloperidol Lactate (Haldol) 5 mg Q6H PRN IM Agitation 11/24/18 00:30 12/24/18 00:29 11/29/18 00:49 Heparin Sodium (Porcine) (Heparin 5000 units/ml) 5,000 units EVERY 12 HOURS SUBQ 11/23/18 21:00 12/19/18 08:59 11/29/18 08:17 Hydralazine HCl (Apresoline) 10 mg Q4H PRN IV SBP > 160 mmHg 11/29/18 10:30 12/29/18 10:29 11/29/18 10:41 Hydralazine HCl (Apresoline) 50 mg Q6HR GT 11/29/18 00:00 12/28/18 00:00 11/29/18 05:41 Lorazepam (Ativan 2mg/ml 1ml) 1 mg Q4H PRN IV For Anxiety 11/24/18 10:15 12/01/18 06:14 11/29/18 02:56 Meropenem 1 gm/ Sodium Chloride 55 ml @ 110 mls/hr Q12HR IVPB 11/29/18 14:00 12/04/18 13:59 Ondansetron HCl (Zofran) 4 mg Q8H PRN IM Nausea & Vomiting 11/23/18 14:00 12/19/18 13:59 Oxycodone/ Acetaminophen (Percocet 10) 1 tab Q4H PRN ORAL Severe Pain (Pain Scale 7-10) 11/23/18 14:00 11/29/18 13:59 11/29/18 02:01 Pantoprazole (Protonix) 40 mg DAILY IVP 11/29/18 10:15 12/29/18 10:14 11/29/18 10:42 Polyethylene Glycol (Miralax) 17 gm DAILY GT 11/28/18 21:45 12/28/18 21:44 11/28/18 21:58 Potassium Chloride 100 ml @ 100 mls/hr Q1HR IVPB 11/29/18 11:00 11/29/18 14:59 11/29/18 13:11 Thiamine HCl (Vitamin B1) 100 mg DAILY GT 11/24/18 09:00 12/19/18 08:59 11/28/18 08:21 Vancomycin HCl (Vanco rx to dose) 1 ea DAILY PRN MISC Per rx protocol 11/25/18 07:45 12/25/18 07:44 Vancomycin HCl 750 mg/Sodium Chloride 275 ml @ 183.333 mls/hr Q24H IVPB 11/26/18 08:00 12/01/18 07:59 11/29/18 08:13 GI: Plan Problems: (1) GT CLOGGED (2) Feeding by G-tube (3) Anemia (4) Encephalopathy (5) Acute renal failure Plan 22 [place] Citizen G-tube replaced at bedside. Chest x-ray plus Gastrografin confirmation of tube placement. Okay to use G-tube after imaging confirmation Zinc oxide daily around G-tube site twice daily dressing changes Anemia work-up reviewed PRN transfusions PPI Electrolyte correction Follow labs Discussed with Dr. Mccauley. Thank you for this patient referral, we will follow. The patient was seen and examined at bedside and all new and available data was reviewed in the patients chart. I agree with the above findings, impression and plan. (Patient seen earlier today. Signature stamp does not reflect patient encounter time.). - MD Hina Cabezas,[facility]-[employer] Nov 29, 2018 13:26
[2018-11-29] MEDS ORDERED: Gastrograffin 30ml ORAL SCH (14:00)
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
[2018-11-29] MEDS: Meropenem 1 GM in NS 55 ML IVPB SCH ×2 (15:21→20:54)
[2018-11-29] MEDS: Zinc Oxide Oint 2oz TOPIC SCH (15:22)
[2018-11-29] MEDS ORDERED: NS 275ml ONE (16:02)
[2018-11-29] MEDS ORDERED: Tubing IV Secondary IV ONE (16:02)
[2018-11-29] MEDS: fentaNYL Citrate 2500mcg in NS 250ml IV SCH (17:00)
--- NOTE | 2018-11-29 20:25 | Cardiology Progress Note ---
Assessment/Plan Assessment/Plan pacemaker pocket infection s/p pacer explantation 11/26/2018 bacteremia staph epi HTN anxiety chronic resp failure s/p trach s/p PEG thoracic aortic dissection s/p repair early 2017 [facility] resident bilateral infiltrates increased alk phosph and ggtp (patricia performed 11/27/2018 neg for vegetation ) repeat cx so far neg as of 11/27/2018 i personally reviewed echo last week no vegetation noted there is AR n TR nto sig s/p pacer explanted by dr fleming keep on iv abx sedated wbc increaed cxr showing increased infiltrate bp med adjusted watch cr with diuretics consdier eval of gallbladder as a source of increaed wbc Subjective ROS Limited/Unobtainable: Yes Subjective on vent in icu sedated Objective Last 24 Hour Vital Signs Date Time Temp Pulse Resp B/P (MAP) Pulse Ox O2 Delivery O2 Flow Rate FiO2 11/29/18 19:33 72 24 40 11/29/18 19:00 62 18 141/56 (84) 96 11/29/18 18:20 151/69 11/29/18 18:00 66 23 151/69 (96) 96 11/29/18 17:00 68 17 162/79 (106) 99 11/29/18 17:00 21 Mechanical Ventilator 40 11/29/18 16:32 60 20 40 11/29/18 16:00 50 11/29/18 16:00 Mechanical Ventilator 11/29/18 16:00 57 11/29/18 16:00 97.4 64 20 158/69 (98) 100 11/29/18 15:28 62 25 50 11/29/18 15:00 62 22 158/58 (91) 93 11/29/18 14:00 69 30 150/69 (96) 96 11/29/18 13:29 88 32 60 11/29/18 13:00 68 20 168/64 (98) 97 11/29/18 12:00 97.4 11/29/18 12:00 84 11/29/18 12:00 Mechanical Ventilator 11/29/18 12:00 68 22 150/62 (91) 86 11/29/18 12:00 181/74 11/29/18 12:00 60 11/29/18 11:00 92 24 181/74 (109) 99 11/29/18 10:41 167/73 11/29/18 10:35 67 26 60 11/29/18 10:00 53 19 151/58 (89) 98 11/29/18 09:15 60 21 75 11/29/18 09:00 60 151/98 11/29/18 09:00 67 15 140/59 (86) 98 11/29/18 08:00 71 11/29/18 08:00 75 11/29/18 08:00 97.7 62 21 151/98 (115) 93 11/29/18 08:00 Mechanical Ventilator 11/29/18 07:00 63 20 159/73 (101) 99 11/29/18 06:45 74 24 182/118 (139) 98 11/29/18 06:45 74 28 75 11/29/18 06:30 62 23 137/101 (113) 100 11/29/18 06:15 44 18 171/64 (99) 97 11/29/18 06:00 74 23 100 11/29/18 05:45 63 24 160/62 (94) 97 11/29/18 05:41 166/62 11/29/18 05:30 60 21 166/62 (96) 98 11/29/18 05:25 59 22 155/86 (109) 98 11/29/18 05:15 61 19 100 11/29/18 05:00 55 19 143/58 (86) 99 11/29/18 05:00 60 22 75 11/29/18 04:45 51 20 128/57 (80) 98 11/29/18 04:30 42 19 131/44 (73) 88 11/29/18 04:15 59 21 132/49 (76) 98 11/29/18 04:03 36 20 132/49 (76) 96 11/29/18 04:00 35 11/29/18 04:00 Mechanical Ventilator 11/29/18 04:00 97.5 35 21 134/55 (81) 97 11/29/18 04:00 75 11/29/18 03:59 56 21 152/66 (94) 95 11/29/18 03:58 64 24 99 Mechanical Ventilator 56 21 98 11/29/18 03:45 37 22 213/94 (133) 100 11/29/18 03:30 50 20 125/58 (80) 95 11/29/18 03:20 50 20 75 11/29/18 03:15 59 20 133/55 (81) 95 11/29/18 03:05 20 Mechanical Ventilator 75 11/29/18 03:00 58 21 138/62 (87) 96 11/29/18 02:56 22 Mechanical Ventilator 75 11/29/18 02:45 95 25 188/104 (132) 100 11/29/18 02:30 61 22 165/68 (100) 99 11/29/18 02:15 57 21 152/63 (92) 100 11/29/18 02:00 76 26 173/71 (105) 98 11/29/18 02:00 175/86 11/29/18 01:57 76 24 175/86 (115) 100 11/29/18 01:29 65 21 75 11/29/18 01:00 62 21 143/57 (85) 100 11/29/18 00:00 98.1 60 22 149/62 (91) 98 11/29/18 00:00 Mechanical Ventilator 11/28/18 23:45 73 25 170/69 (102) 98 11/28/18 23:43 150/67 11/28/18 23:30 65 20 150/67 (94) 93 11/28/18 23:15 62 24 139/53 (81) 92 11/28/18 23:10 61 23 75 11/28/18 23:05 62 11/28/18 23:00 64 25 146/55 (85) 93 11/28/18 22:30 86 28 170/77 (108) 93 11/28/18 22:00 96 34 210/94 (132) 96 11/28/18 21:15 60 22 75 11/28/18 21:00 55 21 148/62 (90) 96 General Appearance: no apparent distress, on vent, patient on isolation Neck: supple Cardiovascular: regular rhythm Respiratory/Chest: lungs clear Abdomen: normal bowel sounds, non tender, soft Extremities: no swelling Intake and Output 11/28/18 11/29/18 19:00 07:00 Intake Total 1376.416 ml 743.5 ml Output Total 460 ml 2360 ml Balance 916.416 ml -1616.5 ml Intake Free Water 150 ml IV Total 746.416 ml 163.5 ml Tube Feeding 480 ml 360 ml Other 220 ml Output Urine Total 460 ml 2360 ml # Bowel Movements 4 Laboratory Tests Test 11/29/18 03:45 White Blood Count 21.2 K/UL (4.8-10.8) H Red Blood Count 3.14 M/UL (4.20-5.40) L Hemoglobin 9.0 G/DL (12.0-16.0) L Hematocrit 27.7 % (37.0-47.0) L Mean Corpuscular Volume 88 FL (80-99) Mean Corpuscular Hemoglobin 28.6 PG (27.0-31.0) Mean Corpuscular Hemoglobin Concent 32.4 G/DL (32.0-36.0) Red Cell Distribution Width 15.1 % (11.6-14.8) H Platelet Count 408 K/UL (150-450) Mean Platelet Volume 6.4 FL (6.5-10.1) L Neutrophils (%) (Auto) % (45.0-75.0) Lymphocytes (%) (Auto) % (20.0-45.0) Monocytes (%) (Auto) % (1.0-10.0) Eosinophils (%) (Auto) % (0.0-3.0) Basophils (%) (Auto) % (0.0-2.0) Differential Total Cells Counted 100 Neutrophils % (Manual) 84 % (45-75) H Lymphocytes % (Manual) 8 % (20-45) L Monocytes % (Manual) 6 % (1-10) Eosinophils % (Manual) 2 % (0-3) Basophils % (Manual) 0 % (0-2) Band Neutrophils 0 % (0-8) Platelet Estimate Adequate Platelet Morphology Normal Anisocytosis 1+ Sodium Level 146 MMOL/L (136-145) H Potassium Level 3.3 MMOL/L (3.5-5.1) L Chloride Level 113 MMOL/L (98-107) H Carbon Dioxide Level 24 MMOL/L (21-32) Anion Gap 10 mmol/L (5-15) Blood Urea Nitrogen 36 mg/dL (7-18) H Creatinine 1.4 MG/DL (0.55-1.30) H Estimat Glomerular Filtration Rate 40.5 mL/min (>60) Glucose Level 123 MG/DL (74-106) H Calcium Level 9.0 MG/DL (8.5-10.1) Total Bilirubin 0.8 MG/DL (0.2-1.0) Aspartate Amino Transf (AST/SGOT) 32 U/L (15-37) Alanine Aminotransferase (ALT/SGPT) 42 U/L (12-78) Alkaline Phosphatase 957 U/L (46-116) H Pro-B-Type Natriuretic Peptide > 60125 pg/mL (0-125) H Total Protein 7.5 G/DL (6.4-8.2) Albumin 2.4 G/DL (3.4-5.0) L Globulin 5.1 g/dL Albumin/Globulin Ratio 0.5 (1.0-2.7) L Microbiology Date/Time Source Procedure Growth Status 11/27/18 16:50 Blood Blood Culture - Preliminary NO GROWTH AFTER 24 HOURS Resulted 11/27/18 16:40 Blood Blood Culture - Preliminary NO GROWTH AFTER 24 HOURS Resulted 11/28/18 13:50 Sputum Gram Stain - Final Resulted 11/28/18 13:50 Sputum Sputum Culture Pending Resulted Carlos Rooney MD Nov 29, 2018 20:25
[2018-11-30] VITALS (31 sets, daily range): BP systolic 72–223; BP diastolic 66–167
[2018-11-30] MEDS: LORazepam Inj 2mg/ml 1ml IV PRN ×5 (01:16→21:20)
--- NOTE | 2018-11-30 04:45 | Progress Note ---
DATE: 11/29/2018 SUBJECTIVE: The patient developed bradycardia during the night, went up to 35, but her heart rate increased when she woke up and 35 was considered to be acceptable. Overall, the patient was more calm and afebrile. PHYSICAL EXAMINATION: VITAL SIGNS: Blood pressure is 169/98, her pulse is 75, respirations of 19, and temperature is 97.6 degrees. HEENT: Eyes were normal. ENT, mucous membranes were moist and intact. NECK: Supple with no JVD without lymph nodes. Tracheostomy site is clean. LUNGS: Clear without rhonchi, rales, or wheezing. Secretions are small, thin, and carlos. HEART: Normal sounds with regular beats. There is bradycardia at rest. ABDOMEN: Soft and nontender with normal bowel sounds. Gastrostomy site is clean. Gastrostomy was changed today. EXTREMITIES: Warm without cyanosis, clubbing, or edema. LABORATORY AND DIAGNOSTIC DATA: Her hemoglobin is 9.0, hematocrit 27.7 with MCV of 98, WBC of 21.2, and platelets of 408,000. Her WBC was 15.1 on 11/27/2018; 19.4 on 11/28/2018; and 21.2 on 11/29/2018. Antibiotics were changed today. She was changed to meropenem 1 g IV piggyback q.12 h. with vancomycin 750 mg IV piggyback q.24 h. Her BUN and creatinine are 38 and 1.4 respectively and her creatinine was 1.6 yesterday. Her sodium is 146, potassium 3.3, chloride 113, and CO2 is 24. Her follow up BMP has increased from 26,000 to 35,000. Her abdominal x-ray revealed that the G-tube was in satisfactory position. Her chest x-ray revealed increased right basilar atelectasis. IMPRESSION AND PLAN: The patient has bradycardia without the pacemaker. She does have leukocytosis and antibiotics were changed. Repeat laboratory tests will be done in a.m. Lucas Dong M.D. DR: YONATHAN JOB#: [id number] CC:
[2018-11-30 05:16] LABS: BASOPHILS % (AUTO) 1.1 % (0.0-2.0); EOSINOPHILS % (AUTO) 2.5 % (0.0-3.0); HEMATOCRIT 29.2 % (37.0-47.0); HEMOGLOBIN 9.2 G/DL (12.0-16.0); LYMPHOCYTES % (AUTO) 12.4 % (20.0-45.0); MEAN CORPUSCULAR VOLUME 90 FL (80-99); MONOCYTES % (AUTO) 5.6 % (1.0-10.0); NEUTROPHILS % (AUTO) 78.4 % (45.0-75.0); PLATELET COUNT 409 K/UL (150-450); RED BLOOD COUNT 3.23 M/UL (4.20-5.40); RED CELL DISTRIBUTION WIDTH 15.3 % (11.6-14.8); WHITE BLOOD COUNT 17.6 K/UL (4.8-10.8)
[2018-11-30 05:35] LABS: PHOSPHORUS 2.7 MG/DL (2.5-4.9)
[2018-11-30] MEDS: HydrALAZINE 50mg tab GT SCH ×4 (05:36→23:18)
[2018-11-30 05:41] LABS: ALANINE AMINOTRANSFERASE 46 U/L (12-78); ALBUMIN 2.5 G/DL (3.4-5.0); ALBUMIN/GLOBULIN RATIO 0.5 (1.0-2.7); ALKALINE PHOSPHATASE 938 U/L (46-116); ANION GAP 17 mmol/L (5-15); ASPARTATE AMINO TRANSFERASE 43 U/L (15-37); BILIRUBIN,TOTAL 0.7 MG/DL (0.2-1.0); BLOOD UREA NITROGEN 36 mg/dL (7-18); CALCIUM 8.9 MG/DL (8.5-10.1); CARBON DIOXIDE 19 MMOL/L (21-32); CHLORIDE 113 MMOL/L (98-107); CREATININE 1.5 MG/DL (0.55-1.30); POTASSIUM 3.7 MMOL/L (3.5-5.1); SODIUM 148 MMOL/L (136-145)
[2018-11-30] MEDS: Miralax 17gm pkt GT SCH ×2 (09:00→09:57)
[2018-11-30] MEDS: Meropenem 1 GM in NS 55 ML IVPB SCH ×2 (09:56→22:10)
[2018-11-30] MEDS: Vancomycin 750mg/NS 275ml IVPB SCH ×2 (09:56)
[2018-11-30] MEDS: Thiamine 100mg tab GT SCH (09:57)
[2018-11-30] MEDS: Zinc Oxide Oint 2oz TOPIC SCH (09:58)
[2018-11-30] MEDS: Heparin 5000 units/ml inj SUBQ SCH ×2 (10:01→22:11)
--- NOTE | 2018-11-30 10:36 | Pulmonolgy Critical Care Note ---
Critical Care - Asmt/Plan Problems: (1) Chronic respiratory failure (2) Chest pain (3) JAVIER (acute kidney injury) (4) Anemia (5) Ventilator dependence (6) S/P aortic dissection repair (7) Tracheostomy in place (8) Feeding by G-tube (9) Bacteremia Respiratory: monitor respiratory rate, adjust FIO2, CXR Cardiac: continue to monitor HR/BP Renal: F/U I&O, keep IV fluid, check electrolytes Infectious Disease: check cultures Gastrointestinal: continue feedings/current rate, hold feedings Endocrine: monitor blood sugar, check TSH Hematologic: monitor H/H, transfuse if hgb<8.5 Neurologic: PRN Ativan, PRN Morphine, keep patient comfortable Prophylaxis: Protonix Disposition: keep in ICU Notes Reviewed: appliance counselor, renal Discussed with: nurses, consultants, family caseworkertechnical sales manager - Objective Last 24 Hour Vital Signs Date Time Temp Pulse Resp B/P (MAP) Pulse Ox O2 Delivery O2 Flow Rate FiO2 11/30/18 09:57 76 159/84 11/30/18 08:39 76 27 40 11/30/18 07:00 81 31 159/84 (109) 97 11/30/18 06:50 88 31 40 11/30/18 06:00 74 23 146/87 (106) 95 11/30/18 05:36 182/87 11/30/18 05:36 90 29 182/87 (118) 96 11/30/18 05:30 90 36 204/110 (141) 96 11/30/18 05:04 92 26 192/86 (121) 100 11/30/18 05:03 90 30 40 11/30/18 05:00 95 28 223/167 (185) 95 11/30/18 04:00 40 11/30/18 04:00 Mechanical Ventilator 11/30/18 04:00 97.8 75 21 176/80 (112) 95 11/30/18 03:41 73 11/30/18 03:29 73 26 40 11/30/18 03:00 76 19 168/87 (114) 95 11/30/18 02:02 76 25 172/79 (110) 96 11/30/18 02:00 80 25 95 11/30/18 01:32 69 25 160/79 (106) 96 11/30/18 01:12 69 26 40 11/30/18 01:00 69 22 166/71 (102) 97 11/30/18 00:00 98.4 69 23 172/67 (102) 98 11/30/18 00:00 Mechanical Ventilator 11/30/18 00:00 40 11/29/18 23:33 146/66 11/29/18 23:21 62 11/29/18 23:13 66 21 100 Mechanical Ventilator 68 23 100 11/29/18 23:12 66 21 40 11/29/18 23:00 75 19 169/98 (121) 89 11/29/18 22:00 64 20 154/64 (94) 93 11/29/18 21:22 76 24 40 11/29/18 21:00 74 22 153/65 (94) 96 11/29/18 20:00 40 11/29/18 20:00 Mechanical Ventilator 11/29/18 20:00 97.6 68 22 133/66 (88) 96 11/29/18 19:47 78 11/29/18 19:33 72 24 40 11/29/18 19:00 62 18 141/56 (84) 96 11/29/18 18:20 151/69 11/29/18 18:00 66 23 151/69 (96) 96 11/29/18 17:00 68 17 162/79 (106) 99 11/29/18 17:00 21 Mechanical Ventilator 40 11/29/18 16:32 60 20 40 11/29/18 16:00 50 11/29/18 16:00 Mechanical Ventilator 11/29/18 16:00 57 11/29/18 16:00 97.4 64 20 158/69 (98) 100 11/29/18 15:28 62 25 50 11/29/18 15:00 62 22 158/58 (91) 93 11/29/18 14:00 69 30 150/69 (96) 96 11/29/18 13:29 88 32 60 11/29/18 13:00 68 20 168/64 (98) 97 11/29/18 12:00 97.4 11/29/18 12:00 84 11/29/18 12:00 Mechanical Ventilator 11/29/18 12:00 68 22 150/62 (91) 86 11/29/18 12:00 181/74 11/29/18 12:00 60 11/29/18 11:00 92 24 181/74 (109) 99 11/29/18 10:41 167/73 Status: awake Condition: critical HEENT: atraumatic Lungs: clear Heart: HR/BP stable Abdomen: soft, non-tender Extremities: no C/C/E, edema Micro: Microbiology Date/Time Source Procedure Growth Status 11/27/18 16:50 Blood Blood Culture - Preliminary NO GROWTH AFTER 48 HOURS Resulted 11/27/18 16:40 Blood Blood Culture - Preliminary NO GROWTH AFTER 48 HOURS Resulted 11/28/18 13:50 Sputum Gram Stain - Final Resulted 11/28/18 13:50 Sputum Culture - Preliminary Gram Negative Bacillus 1 Gram Negative Bacillus 2 Resulted Accucheck: 218 Critical Care - Subjective ROS Limited/Unobtainable: Yes Condition: critical EKG Rhythm: Sinus Rhythm FI02: 40 Vent Support Breath Rate: 20 Vent Support Mode: AC Vent Tidal Volume: 600 Sputum Amount: Scant PEEP: 10.0 PIP: 30 Tube Feeding Amount: 40 I&O: Intake and Output 11/29/18 11/30/18 19:00 07:00 Intake Total 1103.333 ml 645 ml Output Total 1150 ml 545 ml Balance -46.667 ml 100 ml Intake Free Water 50 ml IV Total 903.333 ml 55 ml Tube Feeding 200 ml 480 ml Other 60 ml Output Urine Total 1150 ml 545 ml # Bowel Movements 3 1 CXR: no change Labs: Laboratory Tests Test 11/30/18 03:45 White Blood Count 17.6 K/UL (4.8-10.8) H Red Blood Count 3.23 M/UL (4.20-5.40) L Hemoglobin 9.2 G/DL (12.0-16.0) L Hematocrit 29.2 % (37.0-47.0) L Mean Corpuscular Volume 90 FL (80-99) Mean Corpuscular Hemoglobin 28.6 PG (27.0-31.0) Mean Corpuscular Hemoglobin Concent 31.7 G/DL (32.0-36.0) L Red Cell Distribution Width 15.3 % (11.6-14.8) H Platelet Count 409 K/UL (150-450) Mean Platelet Volume 5.2 FL (6.5-10.1) L Neutrophils (%) (Auto) 78.4 % (45.0-75.0) H Lymphocytes (%) (Auto) 12.4 % (20.0-45.0) L Monocytes (%) (Auto) 5.6 % (1.0-10.0) Eosinophils (%) (Auto) 2.5 % (0.0-3.0) Basophils (%) (Auto) 1.1 % (0.0-2.0) Erythrocyte Sedimentation Rate 109 MM/HR (0-20) H Sodium Level 148 MMOL/L (136-145) H Potassium Level 3.7 MMOL/L (3.5-5.1) Chloride Level 113 MMOL/L (98-107) H Carbon Dioxide Level 19 MMOL/L (21-32) L Anion Gap 17 mmol/L (5-15) H Blood Urea Nitrogen 36 mg/dL (7-18) H Creatinine 1.5 MG/DL (0.55-1.30) H Estimat Glomerular Filtration Rate 37.4 mL/min (>60) Glucose Level 97 MG/DL (74-106) Calcium Level 8.9 MG/DL (8.5-10.1) Phosphorus Level 2.7 MG/DL (2.5-4.9) Magnesium Level 2.0 MG/DL (1.8-2.4) Total Bilirubin 0.7 MG/DL (0.2-1.0) Aspartate Amino Transf (AST/SGOT) 43 U/L (15-37) H Alanine Aminotransferase (ALT/SGPT) 46 U/L (12-78) Alkaline Phosphatase 938 U/L (46-116) H C-Reactive Protein, Quantitative 10.1 mg/dL (0.00-0.90) H Total Protein 7.5 G/DL (6.4-8.2) Albumin 2.5 G/DL (3.4-5.0) L Globulin 5.0 g/dL Albumin/Globulin Ratio 0.5 (1.0-2.7) L Ranjith Arora MD Nov 30, 2018 10:36
--- NOTE | 2018-11-30 13:25 | GI Progress Note ---
Assessment/Plan Problems: (1) GT CLOGGED (2) Anemia ICD Codes: D64.9 - Anemia, unspecified SNOMED: 821681340 Qualifiers: Qualified Codes: D64.9 - Anemia, unspecified Status: stable, unchanged Status Narrative Discussed with Dr. Mccauley. Assessment/Plan 20 Italian G-tube replaced at bedside, confirmed by imaging study. GTFs per RD to goal Zinc oxide daily around G-tube site twice daily dressing changes Anemia work-up reviewed PRN transfusions PPI Electrolyte correction Follow labs The patient was seen and examined at bedside and all new and available data was reviewed in the patients chart. I agree with the above findings, impression and plan. (Patient seen earlier today. Signature stamp does not reflect patient encounter time.). - Inder Mccauley MD Subjective Subjective limited Objective Last 24 Hour Vital Signs Date Time Temp Pulse Resp B/P (MAP) Pulse Ox O2 Delivery O2 Flow Rate FiO2 11/30/18 12:50 72 27 40 11/30/18 12:18 201/89 11/30/18 12:00 81 11/30/18 12:00 40 11/30/18 12:00 Mechanical Ventilator 11/30/18 12:00 98.1 90 28 194/91 (125) 99 11/30/18 11:00 83 20 169/74 (105) 95 11/30/18 10:35 85 30 40 11/30/18 10:00 70 21 167/69 (101) 94 11/30/18 09:57 76 159/84 11/30/18 09:00 68 22 159/69 (99) 94 11/30/18 08:39 76 27 40 11/30/18 08:00 97.9 86 28 179/88 (118) 94 11/30/18 08:00 40 11/30/18 08:00 73 11/30/18 08:00 Mechanical Ventilator 11/30/18 07:00 81 31 159/84 (109) 97 11/30/18 06:50 88 31 40 11/30/18 06:00 74 23 146/87 (106) 95 11/30/18 05:36 182/87 11/30/18 05:36 90 29 182/87 (118) 96 11/30/18 05:30 90 36 204/110 (141) 96 10/18/19 05:04 92 26 192/86 (121) 100 11/30/18 05:03 90 30 40 11/30/18 05:00 95 28 223/167 (185) 95 11/30/18 04:00 40 11/30/18 04:00 Mechanical Ventilator 11/30/18 04:00 97.8 75 21 176/80 (112) 95 11/30/18 03:41 73 11/30/18 03:29 73 26 40 11/30/18 03:00 76 19 168/87 (114) 95 11/30/18 02:02 76 25 172/79 (110) 96 11/30/18 02:00 80 25 95 11/30/18 01:32 69 25 160/79 (106) 96 11/30/18 01:12 69 26 40 11/30/18 01:00 69 22 166/71 (102) 97 11/30/18 00:00 98.4 69 23 172/67 (102) 98 11/30/18 00:00 Mechanical Ventilator 11/30/18 00:00 40 11/29/18 23:33 146/66 11/29/18 23:21 62 11/29/18 23:13 66 21 100 Mechanical Ventilator 68 23 100 11/29/18 23:12 66 21 40 11/29/18 23:00 75 19 169/98 (121) 89 11/29/18 22:00 64 20 154/64 (94) 93 11/29/18 21:22 76 24 40 11/29/18 21:00 74 22 153/65 (94) 96 11/29/18 20:00 40 11/29/18 20:00 Mechanical Ventilator 11/29/18 20:00 97.6 68 22 133/66 (88) 96 11/29/18 19:47 78 11/29/18 19:33 72 24 40 11/29/18 19:00 62 18 141/56 (84) 96 11/29/18 18:20 151/69 11/29/18 18:00 66 23 151/69 (96) 96 11/29/18 17:00 68 17 162/79 (106) 99 11/29/18 17:00 21 Mechanical Ventilator 40 11/29/18 16:32 60 20 40 11/29/18 16:00 50 11/29/18 16:00 Mechanical Ventilator 11/29/18 16:00 57 11/29/18 16:00 97.4 64 20 158/69 (98) 100 11/29/18 15:28 62 25 50 11/29/18 15:00 62 22 158/58 (91) 93 11/29/18 14:00 69 30 150/69 (96) 96 11/29/18 13:29 88 32 60 Intake and Output 11/29/18 11/30/18 18:59 06:59 Intake Total 1063.333 ml 645 ml Output Total 1220 ml 535 ml Balance -156.667 ml 110 ml Intake Free Water 50 ml IV Total 903.333 ml 55 ml Tube Feeding 160 ml 480 ml Other 60 ml Output Urine Total 1220 ml 535 ml # Bowel Movements 3 1 Laboratory Tests Test 11/30/18 03:45 White Blood Count 17.6 K/UL (4.8-10.8) H Red Blood Count 3.23 M/UL (4.20-5.40) L Hemoglobin 9.2 G/DL (12.0-16.0) L Hematocrit 29.2 % (37.0-47.0) L Mean Corpuscular Volume 90 FL (80-99) Mean Corpuscular Hemoglobin 28.6 PG (27.0-31.0) Mean Corpuscular Hemoglobin Concent 31.7 G/DL (32.0-36.0) L Red Cell Distribution Width 15.3 % (11.6-14.8) H Platelet Count 409 K/UL (150-450) Mean Platelet Volume 5.2 FL (6.5-10.1) L Neutrophils (%) (Auto) 78.4 % (45.0-75.0) H Lymphocytes (%) (Auto) 12.4 % (20.0-45.0) L Monocytes (%) (Auto) 5.6 % (1.0-10.0) Eosinophils (%) (Auto) 2.5 % (0.0-3.0) Basophils (%) (Auto) 1.1 % (0.0-2.0) Erythrocyte Sedimentation Rate 109 MM/HR (0-20) H Sodium Level 148 MMOL/L (136-145) H Potassium Level 3.7 MMOL/L (3.5-5.1) Chloride Level 113 MMOL/L (98-107) H Carbon Dioxide Level 19 MMOL/L (21-32) L Anion Gap 17 mmol/L (5-15) H Blood Urea Nitrogen 36 mg/dL (7-18) H Creatinine 1.5 MG/DL (0.55-1.30) H Estimat Glomerular Filtration Rate 37.4 mL/min (>60) Glucose Level 97 MG/DL (74-106) Calcium Level 8.9 MG/DL (8.5-10.1) Phosphorus Level 2.7 MG/DL (2.5-4.9) Magnesium Level 2.0 MG/DL (1.8-2.4) Total Bilirubin 0.7 MG/DL (0.2-1.0) Aspartate Amino Transf (AST/SGOT) 43 U/L (15-37) H Alanine Aminotransferase (ALT/SGPT) 46 U/L (12-78) Alkaline Phosphatase 938 U/L (46-116) H C-Reactive Protein, Quantitative 10.1 mg/dL (0.00-0.90) H Total Protein 7.5 G/DL (6.4-8.2) Albumin 2.5 G/DL (3.4-5.0) L Globulin 5.0 g/dL Albumin/Globulin Ratio 0.5 (1.0-2.7) L Height (Feet): 5 Height (Inches): 5.00 Weight (Pounds): 143 General Appearance: WD/WN, no apparent distress, alert Cardiovascular: normal rate Respiratory/Chest: normal breath sounds, no respiratory distress Abdominal Exam: normal bowel sounds, non tender, soft Extremities: normal range of motion, non-tender Josue Santamaria NP Nov 30, 2018 13:25
[2018-11-30] MEDS: Haloperidol 5mg/ml Inj IM PRN ×2 (15:05→23:18)
--- NOTE | 2018-11-30 15:05 | Hematology/Onc Progress Note ---
Assessment/Plan Assessment/Plan # Anemia of chronic disease due to underlying chronic medical issues, multifactorial --> Anemia workup has been reviewed, cw acd --> No evidence of hemolysis is noted, peripheral smear has been reviewed. --> Hgb goal >7. Transfuse prn. --> Epogen or iron at this time is not particularly indicated --> Medications have been reviewed --> low threshold for gi evaluation in case has occult + --> hgb 7.1-->7.8-->8.9->9.2 # Leukocytosis, recurrent- increased, now improving --> PPM site (pocket) infection (redness and pain, bacteremia) and likely pocket abscess- no vegetation seen on ABBIE --> is s'p pm removal and also pocket infection is better --> per cards recs in re to tach/davis --> wbc 15-->19-->17 # Acute hypoxic respiratory failure s/p intubation 11/23- ?ARDS --> on vent/trach # Gram positive bacteremia- real bacteremia- 2ry to above and probable PNA --> per id care # JAVIER initially >2 --> now improved # Dypshagia s/p peg # thoracic aortic dissection s/p repair early 2017 # [place] resident # Dvt ppx scds The timing of this note does not necessarily reflect the time of the patient was seen. Greatly appreciate consultation. Subjective Constitutional: Denies: no symptoms, chills, fever, malaise, weakness, other HEENT: Denies: no symptoms, eye pain, blurred vision, tearing, double vision, ear pain, ear discharge, nose pain, nose congestion, throat pain, throat swelling, mouth pain, mouth swelling, other Cardiovascular: Denies: no symptoms, chest pain, edema, irregular heart rate, lightheadedness, palpitations, syncope, other Gastrointestinal/Abdominal: Denies: no symptoms, abdomen distended, abdominal pain, black stools, tarry stools, blood in stool, constipated, diarrhea, difficulty swallowing, nausea, poor appetite, poor fluid intake, rectal bleeding , vomiting, other Genitourinary: Denies: no symptoms, burning, discharge, frequency, flank pain, hematuria, incontinence, pain, urgency, other Endocrine: Denies: no symptoms, excessive sweating, flushing, intolerance to cold, intolerance to heat, increased hunger, increased thirst, increased urine, unexplained weight gain, unexplained weight loss, other Hematologic/Lymphatic: Denies: no symptoms, anemia, easy bleeding, easy bruising, adenopathy, other Allergies: Coded Allergies: No Known Allergies (Unverified , 10/10/17) Subjective 11/27: PRBC was given yest, no events, seen by cards, no bleeding 11/28: laying in bed, nonverbal, agitated, pulling on trach 11/29: gtube feeds per rd, no bleeding or chills noted, in icu Objective Objective Current Medications Medications (Trade) Dose Ordered Sig/Penny Route PRN Reason Start Time Stop Time Status Last Admin Dose Admin Acetaminophen (Tylenol) 650 mg Q4H PRN ORAL Mild Pain/Temp > 100.5 11/23/18 14:00 12/19/18 13:59 11/27/18 08:32 Acetaminophen/ Codeine Phosphate (Tylenol #3) 1 tab Q6H PRN GT Moderate Pain (Pain Scale 4-6) 11/26/18 13:00 12/03/18 12:59 11/28/18 19:23 Amlodipine Besylate (Norvasc) 10 mg DAILY GT 11/24/18 09:00 12/19/18 08:59 11/30/18 09:57 Diphenhydramine HCl (Benadryl) 25 mg Q6H PRN IVP Itching 11/23/18 14:00 12/21/18 13:59 Fentanyl Citrate 2500 mcg/Sodium Chloride 250 ml @ 0 mls/hr Q24H IV 11/23/18 17:00 11/30/18 16:59 11/28/18 09:42 Haloperidol Lactate (Haldol) 5 mg Q6H PRN IM Agitation 11/24/18 00:30 12/24/18 00:29 11/29/18 00:49 Heparin Sodium (Porcine) (Heparin 5000 units/ml) 5,000 units EVERY 12 HOURS SUBQ 11/23/18 21:00 12/19/18 08:59 11/30/18 10:01 Hydralazine HCl (Apresoline) 50 mg Q6HR GT 11/29/18 00:00 12/28/18 00:00 11/30/18 12:18 Lansoprazole (Prevacid) 30 mg DAILY GT 11/30/18 09:00 12/30/18 08:59 11/30/18 09:57 Lorazepam (Ativan 2mg/ml 1ml) 1 mg Q4H PRN IV For Anxiety 11/24/18 10:15 12/01/18 06:14 11/30/18 12:18 Meropenem 1 gm/ Sodium Chloride 55 ml @ 110 mls/hr Q12HR IVPB 11/29/18 14:00 12/04/18 13:59 11/30/18 09:56 Ondansetron HCl (Zofran) 4 mg Q8H PRN IM Nausea & Vomiting 11/23/18 14:00 12/19/18 13:59 Polyethylene Glycol (Miralax) 17 gm DAILY GT 11/28/18 21:45 12/28/18 21:44 11/28/18 21:58 Thiamine HCl (Vitamin B1) 100 mg DAILY GT 11/24/18 09:00 12/19/18 08:59 11/30/18 09:57 Vancomycin HCl (Vanco rx to dose) 1 ea DAILY PRN MISC Per rx protocol 11/25/18 07:45 12/25/18 07:44 Vancomycin HCl 750 mg/Sodium Chloride 275 ml @ 183.333 mls/hr Q24H IVPB 11/26/18 08:00 12/01/18 23:59 11/30/18 09:56 Zinc Oxide (Zinc Oxide) 1 applic DAILY TOPIC 11/29/18 15:30 12/29/18 15:29 11/30/18 09:58 Last 24 Hour Vital Signs Date Time Temp Pulse Resp B/P (MAP) Pulse Ox O2 Delivery O2 Flow Rate FiO2 11/30/18 14:51 77 24 40 11/30/18 13:00 79 24 174/80 (111) 97 11/30/18 12:50 72 27 40 11/30/18 12:18 201/89 11/30/18 12:00 81 11/30/18 12:00 40 11/30/18 12:00 Mechanical Ventilator 11/30/18 12:00 98.1 90 28 194/91 (125) 99 11/30/18 11:00 83 20 169/74 (105) 95 11/30/18 10:35 85 30 40 11/30/18 10:00 70 21 167/69 (101) 94 11/30/18 09:57 76 159/84 11/30/18 09:00 68 22 159/69 (99) 94 11/30/18 08:39 76 27 40 11/30/18 08:00 97.9 86 28 179/88 (118) 94 11/30/18 08:00 40 11/30/18 08:00 73 11/30/18 08:00 Mechanical Ventilator 11/30/18 07:00 81 31 159/84 (109) 97 11/30/18 06:50 88 31 40 11/30/18 06:00 74 23 146/87 (106) 95 11/30/18 05:36 182/87 11/30/18 05:36 90 29 182/87 (118) 96 11/30/18 05:30 90 36 204/110 (141) 96 11/30/18 05:04 92 26 192/86 (121) 100 11/30/18 05:03 90 30 40 11/30/18 05:00 95 28 223/167 (185) 95 11/30/18 04:00 40 11/30/18 04:00 Mechanical Ventilator 11/30/18 04:00 97.8 75 21 176/80 (112) 95 11/30/18 03:41 73 11/30/18 03:29 73 26 40 11/30/18 03:00 76 19 168/87 (114) 95 11/30/18 02:02 76 25 172/79 (110) 96 11/30/18 02:00 80 25 95 11/30/18 01:32 69 25 160/79 (106) 96 11/30/18 01:12 69 26 40 11/30/18 01:00 69 22 166/71 (102) 97 11/30/18 00:00 98.4 69 23 172/67 (102) 98 11/30/18 00:00 Mechanical Ventilator 11/30/18 00:00 40 11/29/18 23:33 146/66 11/29/18 23:21 62 11/29/18 23:13 66 21 100 Mechanical Ventilator 68 23 100 11/29/18 23:12 66 21 40 11/29/18 23:00 75 19 169/98 (121) 89 11/29/18 22:00 64 20 154/64 (94) 93 11/29/18 21:22 76 24 40 10/17/19 21:00 74 22 153/65 (94) 96 11/29/18 20:00 40 11/29/18 20:00 Mechanical Ventilator 11/29/18 20:00 97.6 68 22 133/66 (88) 96 11/29/18 19:47 78 11/29/18 19:33 72 24 40 11/29/18 19:00 62 18 141/56 (84) 96 11/29/18 18:20 151/69 11/29/18 18:00 66 23 151/69 (96) 96 11/29/18 17:00 68 17 162/79 (106) 99 11/29/18 17:00 21 Mechanical Ventilator 40 11/29/18 16:32 60 20 40 11/29/18 16:00 50 11/29/18 16:00 Mechanical Ventilator 11/29/18 16:00 57 11/29/18 16:00 97.4 64 20 158/69 (98) 100 11/29/18 15:28 62 25 50 11/29/18 15:00 62 22 158/58 (91) 93 11/29/18 14:00 69 30 150/69 (96) 96 11/29/18 13:29 88 32 60 11/29/18 13:00 68 20 168/64 (98) 97 11/29/18 12:00 97.4 11/29/18 12:00 84 11/29/18 12:00 Mechanical Ventilator 11/29/18 12:00 68 22 150/62 (91) 86 11/29/18 12:00 181/74 11/29/18 12:00 60 11/29/18 11:00 92 24 181/74 (109) 99 11/29/18 10:41 167/73 11/29/18 10:35 67 26 60 11/29/18 10:00 53 19 151/58 (89) 98 11/29/18 09:15 60 21 75 11/29/18 09:00 60 151/98 11/29/18 09:00 67 15 140/59 (86) 98 11/29/18 08:00 71 11/29/18 08:00 75 11/29/18 08:00 97.7 62 21 151/98 (115) 93 11/29/18 08:00 Mechanical Ventilator 11/29/18 07:00 63 20 159/73 (101) 99 11/29/18 06:45 74 24 182/118 (139) 98 11/29/18 06:45 74 28 75 11/29/18 06:30 62 23 137/101 (113) 100 11/29/18 06:15 44 18 171/64 (99) 97 11/29/18 06:00 74 23 100 11/29/18 05:45 63 24 160/62 (94) 97 11/29/18 05:41 166/62 11/29/18 05:30 60 21 166/62 (96) 98 11/29/18 05:25 59 22 155/86 (109) 98 11/29/18 05:15 61 19 100 11/29/18 05:00 55 19 143/58 (86) 99 11/29/18 05:00 60 22 75 11/29/18 04:45 51 20 128/57 (80) 98 11/29/18 04:30 42 19 131/44 (73) 88 11/29/18 04:15 59 21 132/49 (76) 98 11/29/18 04:03 36 20 132/49 (76) 96 11/29/18 04:00 35 11/29/18 04:00 Mechanical Ventilator 11/29/18 04:00 97.5 35 21 134/55 (81) 97 11/29/18 04:00 75 11/29/18 03:59 56 21 152/66 (94) 95 11/29/18 03:58 64 24 99 Mechanical Ventilator 56 21 98 11/29/18 03:45 37 22 213/94 (133) 100 11/29/18 03:30 50 20 125/58 (80) 95 11/29/18 03:20 50 20 75 11/29/18 03:15 59 20 133/55 (81) 95 11/29/18 03:05 20 Mechanical Ventilator 75 11/29/18 03:00 58 21 138/62 (87) 96 11/29/18 02:56 22 Mechanical Ventilator 75 11/29/18 02:45 95 25 188/104 (132) 100 11/29/18 02:30 61 22 165/68 (100) 99 11/29/18 02:15 57 21 152/63 (92) 100 11/29/18 02:00 76 26 173/71 (105) 98 11/29/18 02:00 175/86 11/29/18 01:57 76 24 175/86 (115) 100 11/29/18 01:29 65 21 75 11/29/18 01:00 62 21 143/57 (85) 100 11/29/18 00:00 98.1 60 22 149/62 (91) 98 11/29/18 00:00 Mechanical Ventilator 11/28/18 23:45 73 25 170/69 (102) 98 11/28/18 23:43 150/67 11/28/18 23:30 65 20 150/67 (94) 93 11/28/18 23:15 62 24 139/53 (81) 92 11/28/18 23:10 61 23 75 11/28/18 23:05 62 11/28/18 23:00 64 25 146/55 (85) 93 11/28/18 22:30 86 28 170/77 (108) 93 11/28/18 22:00 96 34 210/94 (132) 96 11/28/18 21:15 60 22 75 11/28/18 21:00 55 21 148/62 (90) 96 11/28/18 20:00 100 11/28/18 20:00 Mechanical Ventilator 11/28/18 20:00 98.2 57 23 147/64 (91) 93 11/28/18 19:54 68 20 97 Mechanical Ventilator 100 11/28/18 19:23 61 167/68 11/28/18 19:16 73 11/28/18 19:00 56 22 149/61 (90) 99 11/28/18 19:00 64 23 171/70 (103) 100 11/28/18 19:00 64 21 75 11/28/18 18:00 56 22 149/61 (90) 99 11/28/18 17:55 149/65 11/28/18 17:15 68 24 75 11/28/18 17:00 64 27 156/62 (93) 96 11/28/18 16:30 59 22 154/61 (92) 97 11/28/18 16:15 59 22 154/61 (92) 97 11/28/18 16:00 98.4 65 18 170/74 (106) 96 11/28/18 16:00 75 11/28/18 16:00 Mechanical Ventilator 11/28/18 16:00 50 11/28/18 15:45 65 18 170/74 (106) 96 11/28/18 15:30 20 Mechanical Ventilator 75 11/28/18 15:30 51 20 130/51 (77) 94 Intake and Output 11/29/18 11/30/18 18:59 06:59 Intake Total 1063.333 ml 645 ml Output Total 1220 ml 535 ml Balance -156.667 ml 110 ml Intake Free Water 50 ml IV Total 903.333 ml 55 ml Tube Feeding 160 ml 480 ml Other 60 ml Output Urine Total 1220 ml 535 ml # Bowel Movements 3 1 Labs Test 11/28/18 06:45 11/29/18 03:45 11/30/18 03:45 White Blood Count 19.4 K/UL (4.8-10.8) 21.2 K/UL (4.8-10.8) 17.6 K/UL (4.8-10.8) Red Blood Count 3.13 M/UL (4.20-5.40) 3.14 M/UL (4.20-5.40) 3.23 M/UL (4.20-5.40) Hemoglobin 8.9 G/DL (12.0-16.0) 9.0 G/DL (12.0-16.0) 9.2 G/DL (12.0-16.0) Hematocrit 28.0 % (37.0-47.0) 27.7 % (37.0-47.0) 29.2 % (37.0-47.0) Mean Corpuscular Volume 89 FL (80-99) 88 FL (80-99) 90 FL (80-99) Mean Corpuscular Hemoglobin 28.4 PG (27.0-31.0) 28.6 PG (27.0-31.0) 28.6 PG (27.0-31.0) Mean Corpuscular Hemoglobin Concent 31.9 G/DL (32.0-36.0) 32.4 G/DL (32.0-36.0) 31.7 G/DL (32.0-36.0) Red Cell Distribution Width 15.2 % (11.6-14.8) 15.1 % (11.6-14.8) 15.3 % (11.6-14.8) Platelet Count 368 K/UL (150-450) 408 K/UL (150-450) 409 K/UL (150-450) Mean Platelet Volume 5.6 FL (6.5-10.1) 6.4 FL (6.5-10.1) 5.2 FL (6.5-10.1) Neutrophils (%) (Auto) % (45.0-75.0) % (45.0-75.0) 78.4 % (45.0-75.0) Lymphocytes (%) (Auto) % (20.0-45.0) % (20.0-45.0) 12.4 % (20.0-45.0) Monocytes (%) (Auto) % (1.0-10.0) % (1.0-10.0) 5.6 % (1.0-10.0) Eosinophils (%) (Auto) % (0.0-3.0) % (0.0-3.0) 2.5 % (0.0-3.0) Basophils (%) (Auto) % (0.0-2.0) % (0.0-2.0) 1.1 % (0.0-2.0) Differential Total Cells Counted 100 100 Neutrophils % (Manual) 70 % (45-75) 84 % (45-75) Lymphocytes % (Manual) 20 % (20-45) 8 % (20-45) Monocytes % (Manual) 7 % (1-10) 6 % (1-10) Eosinophils % (Manual) 3 % (0-3) 2 % (0-3) Basophils % (Manual) 0 % (0-2) 0 % (0-2) Band Neutrophils 0 % (0-8) 0 % (0-8) Platelet Estimate Adequate Adequate Platelet Morphology Normal Normal Hypochromasia 2+ Anisocytosis 1+ 1+ Sodium Level 144 MMOL/L (136-145) 146 MMOL/L (136-145) 148 MMOL/L (136-145) Potassium Level 3.7 MMOL/L (3.5-5.1) 3.3 MMOL/L (3.5-5.1) 3.7 MMOL/L (3.5-5.1) Chloride Level 112 MMOL/L (98-107) 113 MMOL/L (98-107) 113 MMOL/L (98-107) Carbon Dioxide Level 22 MMOL/L (21-32) 24 MMOL/L (21-32) 19 MMOL/L (21-32) Anion Gap 10 mmol/L (5-15) 10 mmol/L (5-15) 17 mmol/L (5-15) Blood Urea Nitrogen 39 mg/dL (7-18) 36 mg/dL (7-18) 36 mg/dL (7-18) Creatinine 1.6 MG/DL (0.55-1.30) 1.4 MG/DL (0.55-1.30) 1.5 MG/DL (0.55-1.30) Estimat Glomerular Filtration Rate 34.7 mL/min (>60) 40.5 mL/min (>60) 37.4 mL/min (>60) Glucose Level 122 MG/DL (74-106) 123 MG/DL (74-106) 97 MG/DL (74-106) Calcium Level 8.9 MG/DL (8.5-10.1) 9.0 MG/DL (8.5-10.1) 8.9 MG/DL (8.5-10.1) Total Bilirubin 0.8 MG/DL (0.2-1.0) 0.8 MG/DL (0.2-1.0) 0.7 MG/DL (0.2-1.0) Gamma Glutamyl Transpeptidase 497 U/L (5-85) Aspartate Amino Transf (AST/SGOT) 47 U/L (15-37) 32 U/L (15-37) 43 U/L (15-37) Alanine Aminotransferase (ALT/SGPT) 53 U/L (12-78) 42 U/L (12-78) 46 U/L (12-78) Alkaline Phosphatase 1092 U/L (46-116) 957 U/L (46-116) 938 U/L (46-116) Pro-B-Type Natriuretic Peptide 48028 pg/mL (0-125) > 51563 pg/mL (0-125) Total Protein 7.8 G/DL (6.4-8.2) 7.5 G/DL (6.4-8.2) 7.5 G/DL (6.4-8.2) Albumin 2.6 G/DL (3.4-5.0) 2.4 G/DL (3.4-5.0) 2.5 G/DL (3.4-5.0) Globulin 5.2 g/dL 5.1 g/dL 5.0 g/dL Albumin/Globulin Ratio 0.5 (1.0-2.7) 0.5 (1.0-2.7) 0.5 (1.0-2.7) Vancomycin Level Trough 16.1 ug/mL (5.0-12.0) Erythrocyte Sedimentation Rate 109 MM/HR (0-20) Phosphorus Level 2.7 MG/DL (2.5-4.9) Magnesium Level 2.0 MG/DL (1.8-2.4) C-Reactive Protein, Quantitative 10.1 mg/dL (0.00-0.90) Height (Feet): 5 Height (Inches): 5.00 Weight (Pounds): 143 Objective Gen: on vent, altered HEENT Sclerae were white. ENT ++trach/vent NECK: Supple. No lymphadenopathy. LUNGS: Clear. HEART: PMI was in fifth left intercostal space in midclavicular line. ABDOMEN: Soft, nontender without organomegaly. There were no masses ++ peg EXTREMITIES: No cyanosi Evan Muhammad MD Nov 30, 2018 15:05
--- NOTE | 2018-11-30 16:00 | Infectious Diseases Prog Note ---
Assessment/Plan Assessment/Plan Assessment: Acute on chronic hypoxic respiratory failure - ?ARDS Fever; improving Leukocytosis, recurrent- increased, now improving -u.a wbc 5-10, nit neg, leuk +1 PPM site (pocket) infection (redness and pain, bacteremia) and likely pocket abscess- no vegetation seen on ABBIE -11/27 SP ABBIE: no evidence for vegetation on any of the valves -11/26 SP PPM removal: -OR findings:The fibrous capsule enclosing the generator was then opened and there was a [id number] amount of yellowish fluid drainage. The generator was then removed.Atrial and ventricular leads were detached. The necrotic tissue of the pocket was then removed and the pocket was flushed with an antibiotic solution. -Capsule, wound tissue and lead tip cx: NTD -2d echo: no vegetation seen -US chest: 4.6 x 3.4 x 0.9 cm hypoechoic/anechoic area overlying left chest pacemaker power pack. This could represent either a discrete fluid collection or a focal area of very edematous tissue. Infected fluid pocket also possible. Gram positive bacteremia- real bacteremia- 2ry to above -11/18 Bcx 3/4 S. epi; 11/20 Bcx neg; 11/24 Bcx NTD; 11/27 Bcx NTD Probable PNA -11/26 CXR: Slightly improved aeration of the right lung base. Otherwise mostly stable bilateral interstitial and airspace disease -CXR: etrocardiac consolidation, possibly pneumonia. Right basilar atelectasis -sp cx MRSA, ABC (I Ceftriaxone; otherwise S) Recent aspiration PNA and UTI (late September 2018) -u/a wbc 5-10, nit +, leuk +1; ucx >100k Enterobacter aerogenes (R ancef, nitro; otherwise S) -sp cx MRSA, ABC (I Ceftriaxone); repeat sp cx 11/28 p HTN anxiety chronic resp failure s/p trach s/p PEG thoracic aortic dissection s/p repair early 2017 [place] resident Plan: -Continue empiric IV Vancomycin #13 for S. epi bacteremia, PPM site infection and abscess and PNA - guidelines favor treatment for endocarditis in the setting of +pocket infection and bacteremia with Staph; expected end date 12/31/18; weekly CBC, BMP , Vanco through -in terms of device re-implantation, will await patient afebrile for at least 48hrs, leukocytosis resolved and repeat Bcx 11/27 (after device removal) negative in 72 hours -Continue Meropenem #2 (abx d #11) for PNA given worsening wbc -11/29 SP Zosyn #11 -f.u cx -Monitor CBC/CMP, temperatures -Cards f/u -f/u repeat Bcx x2, OR cultures -Cdiff if diarrhea -f/u sp cx -If wbc remains elevated and when Cr better improved, will do CT chest abd/p w/ Thank you for this consultation. Will continue to follow along with you. Subjective Allergies: Coded Allergies: No Known Allergies (Unverified , 10/10/17) Subjective afebrile >48hrs wbc improving repeat BCx NTD Fio2 down to 40% Objective Vital Signs Last 24 Hour Vital Signs Date Time Temp Pulse Resp B/P (MAP) Pulse Ox O2 Delivery O2 Flow Rate FiO2 11/30/18 14:51 77 24 40 11/30/18 13:00 79 24 174/80 (111) 97 11/30/18 12:50 72 27 40 11/30/18 12:18 201/89 11/30/18 12:00 81 11/30/18 12:00 40 11/30/18 12:00 Mechanical Ventilator 11/30/18 12:00 98.1 90 28 194/91 (125) 99 11/30/18 11:00 83 20 169/74 (105) 95 11/30/18 10:35 85 30 40 11/30/18 10:00 70 21 167/69 (101) 94 11/30/18 09:57 76 159/84 11/30/18 09:00 68 22 159/69 (99) 94 11/30/18 08:39 76 27 40 11/30/18 08:00 97.9 86 28 179/88 (118) 94 11/30/18 08:00 40 11/30/18 08:00 73 11/30/18 08:00 Mechanical Ventilator 11/30/18 07:00 81 31 159/84 (109) 97 11/30/18 06:50 88 31 40 11/30/18 06:00 74 23 146/87 (106) 95 11/30/18 05:36 182/87 11/30/18 05:36 90 29 182/87 (118) 96 11/30/18 05:30 90 36 204/110 (141) 96 10/18/19 05:04 92 26 192/86 (121) 100 11/30/18 05:03 90 30 40 11/30/18 05:00 95 28 223/167 (185) 95 11/30/18 04:00 40 11/30/18 04:00 Mechanical Ventilator 11/30/18 04:00 97.8 75 21 176/80 (112) 95 11/30/18 03:41 73 11/30/18 03:29 73 26 40 11/30/18 03:00 76 19 168/87 (114) 95 11/30/18 02:02 76 25 172/79 (110) 96 11/30/18 02:00 80 25 95 11/30/18 01:32 69 25 160/79 (106) 96 11/30/18 01:12 69 26 40 11/30/18 01:00 69 22 166/71 (102) 97 11/30/18 00:00 98.4 69 23 172/67 (102) 98 11/30/18 00:00 Mechanical Ventilator 11/30/18 00:00 40 11/29/18 23:33 146/66 11/29/18 23:21 62 11/29/18 23:13 66 21 100 Mechanical Ventilator 68 23 100 11/29/18 23:12 66 21 40 11/29/18 23:00 75 19 169/98 (121) 89 11/29/18 22:00 64 20 154/64 (94) 93 11/29/18 21:22 76 24 40 11/29/18 21:00 74 22 153/65 (94) 96 11/29/18 20:00 40 11/29/18 20:00 Mechanical Ventilator 11/29/18 20:00 97.6 68 22 133/66 (88) 96 11/29/18 19:47 78 11/29/18 19:33 72 24 40 11/29/18 19:00 62 18 141/56 (84) 96 11/29/18 18:20 151/69 11/29/18 18:00 66 23 151/69 (96) 96 11/29/18 17:00 68 17 162/79 (106) 99 11/29/18 17:00 21 Mechanical Ventilator 40 11/29/18 16:32 60 20 40 11/29/18 16:00 50 11/29/18 16:00 Mechanical Ventilator 11/29/18 16:00 57 11/29/18 16:00 97.4 64 20 158/69 (98) 100 Height (Feet): 5 Height (Inches): 5.00 Weight (Pounds): 143 Objective HEENT: Eyes were normal. Pupils were round, equal, and reactive to light. Sclerae were white. Conjunctivae were pink. ENT, mucous membranes were not dehydrated. NECK: Supple. No lymphadenopathy. LUNGS: Clear. HEART: PMI was in fifth left intercostal space in midclavicular line. There was normal S1 and normal S2. There was no murmur. No arrhythmia. No S3. No S4. No pericardial rub. ABDOMEN: Soft, nontender without organomegaly. There were no masses palpable. Normal bowel sounds without bruits. There was no guarding. No rebound tenderness. No CVA tenderness. EXTREMITIES: No cyanosis, clubbing, and no edema. Extremities were warm. Microbiology Date/Time Source Procedure Growth Status 11/27/18 16:50 Blood Blood Culture - Preliminary NO GROWTH AFTER 48 HOURS Resulted 11/27/18 16:40 Blood Blood Culture - Preliminary NO GROWTH AFTER 48 HOURS Resulted 11/28/18 13:50 Sputum Gram Stain - Final Resulted 11/28/18 13:50 Sputum Culture - Preliminary Gram Negative Bacillus 1 Gram Negative Bacillus 2 Resulted Laboratory Tests Test 11/30/18 03:45 White Blood Count 17.6 K/UL (4.8-10.8) H Red Blood Count 3.23 M/UL (4.20-5.40) L Hemoglobin 9.2 G/DL (12.0-16.0) L Hematocrit 29.2 % (37.0-47.0) L Mean Corpuscular Volume 90 FL (80-99) Mean Corpuscular Hemoglobin 28.6 PG (27.0-31.0) Mean Corpuscular Hemoglobin Concent 31.7 G/DL (32.0-36.0) L Red Cell Distribution Width 15.3 % (11.6-14.8) H Platelet Count 409 K/UL (150-450) Mean Platelet Volume 5.2 FL (6.5-10.1) L Neutrophils (%) (Auto) 78.4 % (45.0-75.0) H Lymphocytes (%) (Auto) 12.4 % (20.0-45.0) L Monocytes (%) (Auto) 5.6 % (1.0-10.0) Eosinophils (%) (Auto) 2.5 % (0.0-3.0) Basophils (%) (Auto) 1.1 % (0.0-2.0) Erythrocyte Sedimentation Rate 109 MM/HR (0-20) H Sodium Level 148 MMOL/L (136-145) H Potassium Level 3.7 MMOL/L (3.5-5.1) Chloride Level 113 MMOL/L (98-107) H Carbon Dioxide Level 19 MMOL/L (21-32) L Anion Gap 17 mmol/L (5-15) H Blood Urea Nitrogen 36 mg/dL (7-18) H Creatinine 1.5 MG/DL (0.55-1.30) H Estimat Glomerular Filtration Rate 37.4 mL/min (>60) Glucose Level 97 MG/DL (74-106) Calcium Level 8.9 MG/DL (8.5-10.1) Phosphorus Level 2.7 MG/DL (2.5-4.9) Magnesium Level 2.0 MG/DL (1.8-2.4) Total Bilirubin 0.7 MG/DL (0.2-1.0) Aspartate Amino Transf (AST/SGOT) 43 U/L (15-37) H Alanine Aminotransferase (ALT/SGPT) 46 U/L (12-78) Alkaline Phosphatase 938 U/L (46-116) H C-Reactive Protein, Quantitative 10.1 mg/dL (0.00-0.90) H Total Protein 7.5 G/DL (6.4-8.2) Albumin 2.5 G/DL (3.4-5.0) L Globulin 5.0 g/dL Albumin/Globulin Ratio 0.5 (1.0-2.7) L Current Medications Medications (Trade) Dose Ordered Sig/Penny Route PRN Reason Start Time Stop Time Status Last Admin Dose Admin Acetaminophen (Tylenol) 650 mg Q4H PRN ORAL Mild Pain/Temp > 100.5 11/23/18 14:00 12/19/18 13:59 11/27/18 08:32 Acetaminophen/ Codeine Phosphate (Tylenol #3) 1 tab Q6H PRN GT Moderate Pain (Pain Scale 4-6) 11/26/18 13:00 12/03/18 12:59 11/28/18 19:23 Amlodipine Besylate (Norvasc) 10 mg DAILY GT 11/24/18 09:00 12/19/18 08:59 11/30/18 09:57 Diphenhydramine HCl (Benadryl) 25 mg Q6H PRN IVP Itching 11/23/18 14:00 12/21/18 13:59 Fentanyl Citrate 2500 mcg/Sodium Chloride 250 ml @ 0 mls/hr Q24H IV 11/23/18 17:00 11/30/18 16:59 11/28/18 09:42 Haloperidol Lactate (Haldol) 5 mg Q6H PRN IM Agitation 11/24/18 00:30 12/24/18 00:29 11/30/18 15:05 Heparin Sodium (Porcine) (Heparin 5000 units/ml) 5,000 units EVERY 12 HOURS SUBQ 11/23/18 21:00 12/19/18 08:59 11/30/18 10:01 Hydralazine HCl (Apresoline) 50 mg Q6HR GT 11/29/18 00:00 12/28/18 00:00 11/30/18 12:18 Lansoprazole (Prevacid) 30 mg DAILY GT 11/30/18 09:00 12/30/18 08:59 11/30/18 09:57 Lorazepam (Ativan 2mg/ml 1ml) 1 mg Q4H PRN IV For Anxiety 11/24/18 10:15 12/01/18 06:14 11/30/18 12:18 Meropenem 1 gm/ Sodium Chloride 55 ml @ 110 mls/hr Q12HR IVPB 11/29/18 14:00 12/04/18 13:59 11/30/18 09:56 Ondansetron HCl (Zofran) 4 mg Q8H PRN IM Nausea & Vomiting 11/23/18 14:00 12/19/18 13:59 Polyethylene Glycol (Miralax) 17 gm DAILY GT 11/28/18 21:45 12/28/18 21:44 11/28/18 21:58 Thiamine HCl (Vitamin B1) 100 mg DAILY GT 11/24/18 09:00 12/19/18 08:59 11/30/18 09:57 Vancomycin HCl (Vanco rx to dose) 1 ea DAILY PRN MISC Per rx protocol 11/25/18 07:45 12/25/18 07:44 Vancomycin HCl 750 mg/Sodium Chloride 275 ml @ 183.333 mls/hr Q24H IVPB 11/26/18 08:00 12/01/18 23:59 11/30/18 09:56 Zinc Oxide (Zinc Oxide) 1 applic DAILY TOPIC 11/29/18 15:30 12/29/18 15:29 11/30/18 09:58 Doreen Nino M.D. Nov 30, 2018 16:00
--- NOTE | 2018-11-30 19:45 | Cardiology Progress Note ---
Assessment/Plan Assessment/Plan pacemaker pocket infection s/p pacer explantation 11/26/2018 bacteremia staph epi HTN anxiety chronic resp failure s/p trach s/p PEG thoracic aortic dissection s/p repair early 2017 [facility] resident bilateral infiltrates increased alk phosph and ggtp (patricia performed 11/27/2018 neg for vegetation ) repeat cx so far neg as of 11/27/2018 i personally reviewed echo last week no vegetation noted there is AR n TR nto sig s/p pacer explanted by dr fleming keep on iv abx not on acie or arb due to renal insuf on hydralazine will increase the dose nto suign clonidine or labetolol dueto davis watch cr with diuretics consdier eval of gallbladder as a source of increaed wbc Subjective Cardiovascular: Denies: chest pain, lightheadedness Respiratory: Denies: shortness of breath Gastrointestinal/Abdominal: Denies: abdomen distended Genitourinary: Denies: burning Subjective on vent in icu sedated Objective Last 24 Hour Vital Signs Date Time Temp Pulse Resp B/P (MAP) Pulse Ox O2 Delivery O2 Flow Rate FiO2 11/30/18 19:00 68 25 159/71 (100) 96 11/30/18 18:30 77 21 180/71 (107) 94 11/30/18 18:00 75 25 173/72 (105) 94 11/30/18 18:00 70 25 72/71 (71) 95 11/30/18 17:30 74 23 171/71 (104) 96 11/30/18 17:21 169/67 11/30/18 17:00 73 28 173/76 (108) 11/30/18 16:24 87 31 40 11/30/18 16:00 98.1 68 24 169/67 (101) 92 11/30/18 16:00 40 11/30/18 16:00 Mechanical Ventilator 11/30/18 16:00 72 11/30/18 15:00 91 30 198/101 (133) 97 11/30/18 14:51 77 24 40 11/30/18 14:00 75 23 173/79 (110) 94 11/30/18 13:00 79 24 174/80 (111) 97 11/30/18 12:50 72 27 40 11/30/18 12:18 201/89 10/18/19 12:00 81 11/30/18 12:00 40 11/30/18 12:00 Mechanical Ventilator 11/30/18 12:00 98.1 90 28 194/91 (125) 99 11/30/18 11:00 83 20 169/74 (105) 95 11/30/18 10:35 85 30 40 11/30/18 10:00 70 21 167/69 (101) 94 11/30/18 09:57 76 159/84 11/30/18 09:00 68 22 159/69 (99) 94 11/30/18 08:39 76 27 40 11/30/18 08:00 97.9 86 28 179/88 (118) 94 11/30/18 08:00 40 11/30/18 08:00 73 11/30/18 08:00 Mechanical Ventilator 11/30/18 07:00 81 31 159/84 (109) 97 11/30/18 06:50 88 31 40 11/30/18 06:00 74 23 146/87 (106) 95 11/30/18 05:36 182/87 11/30/18 05:36 90 29 182/87 (118) 96 11/30/18 05:30 90 36 204/110 (141) 96 11/30/18 05:04 92 26 192/86 (121) 100 11/30/18 05:03 90 30 40 11/30/18 05:00 95 28 223/167 (185) 95 11/30/18 04:00 40 11/30/18 04:00 Mechanical Ventilator 11/30/18 04:00 97.8 75 21 176/80 (112) 95 11/30/18 03:41 73 11/30/18 03:29 73 26 40 11/30/18 03:00 76 19 168/87 (114) 95 11/30/18 02:02 76 25 172/79 (110) 96 11/30/18 02:00 80 25 95 11/30/18 01:32 69 25 160/79 (106) 96 11/30/18 01:12 69 26 40 11/30/18 01:00 69 22 166/71 (102) 97 11/30/18 00:00 98.4 69 23 172/67 (102) 98 11/30/18 00:00 Mechanical Ventilator 11/30/18 00:00 40 11/29/18 23:33 146/66 11/29/18 23:21 62 11/29/18 23:13 66 21 100 Mechanical Ventilator 68 23 100 11/29/18 23:12 66 21 40 11/29/18 23:00 75 19 169/98 (121) 89 11/29/18 22:00 64 20 154/64 (94) 93 11/29/18 21:22 76 24 40 11/29/18 21:00 74 22 153/65 (94) 96 11/29/18 20:00 40 11/29/18 20:00 Mechanical Ventilator 11/29/18 20:00 97.6 68 22 133/66 (88) 96 11/29/18 19:47 78 General Appearance: alert, on vent, patient on isolation Neck: supple Cardiovascular: normal rate Respiratory/Chest: lungs clear - ant Abdomen: normal bowel sounds, non tender, soft Extremities: no swelling Intake and Output 11/29/18 11/30/18 19:00 07:00 Intake Total 1103.333 ml 645 ml Output Total 1150 ml 545 ml Balance -46.667 ml 100 ml Intake Free Water 50 ml IV Total 903.333 ml 55 ml Tube Feeding 200 ml 480 ml Other 60 ml Output Urine Total 1150 ml 545 ml # Bowel Movements 3 1 Laboratory Tests Test 11/30/18 03:45 White Blood Count 17.6 K/UL (4.8-10.8) H Red Blood Count 3.23 M/UL (4.20-5.40) L Hemoglobin 9.2 G/DL (12.0-16.0) L Hematocrit 29.2 % (37.0-47.0) L Mean Corpuscular Volume 90 FL (80-99) Mean Corpuscular Hemoglobin 28.6 PG (27.0-31.0) Mean Corpuscular Hemoglobin Concent 31.7 G/DL (32.0-36.0) L Red Cell Distribution Width 15.3 % (11.6-14.8) H Platelet Count 409 K/UL (150-450) Mean Platelet Volume 5.2 FL (6.5-10.1) L Neutrophils (%) (Auto) 78.4 % (45.0-75.0) H Lymphocytes (%) (Auto) 12.4 % (20.0-45.0) L Monocytes (%) (Auto) 5.6 % (1.0-10.0) Eosinophils (%) (Auto) 2.5 % (0.0-3.0) Basophils (%) (Auto) 1.1 % (0.0-2.0) Erythrocyte Sedimentation Rate 109 MM/HR (0-20) H Sodium Level 148 MMOL/L (136-145) H Potassium Level 3.7 MMOL/L (3.5-5.1) Chloride Level 113 MMOL/L (98-107) H Carbon Dioxide Level 19 MMOL/L (21-32) L Anion Gap 17 mmol/L (5-15) H Blood Urea Nitrogen 36 mg/dL (7-18) H Creatinine 1.5 MG/DL (0.55-1.30) H Estimat Glomerular Filtration Rate 37.4 mL/min (>60) Glucose Level 97 MG/DL (74-106) Calcium Level 8.9 MG/DL (8.5-10.1) Phosphorus Level 2.7 MG/DL (2.5-4.9) Magnesium Level 2.0 MG/DL (1.8-2.4) Total Bilirubin 0.7 MG/DL (0.2-1.0) Aspartate Amino Transf (AST/SGOT) 43 U/L (15-37) H Alanine Aminotransferase (ALT/SGPT) 46 U/L (12-78) Alkaline Phosphatase 938 U/L (46-116) H C-Reactive Protein, Quantitative 10.1 mg/dL (0.00-0.90) H Total Protein 7.5 G/DL (6.4-8.2) Albumin 2.5 G/DL (3.4-5.0) L Globulin 5.0 g/dL Albumin/Globulin Ratio 0.5 (1.0-2.7) L Microbiology Date/Time Source Procedure Growth Status 11/28/18 13:50 Sputum Gram Stain - Final Resulted 11/28/18 13:50 Sputum Culture - Preliminary Gram Negative Bacillus 1 Gram Negative Bacillus 2 Resulted Carlos Rooney MD Nov 30, 2018 19:45
[2018-12-01] VITALS (24 sets, daily range): BP systolic 124–184; BP diastolic 53–96
[2018-12-01] MEDS: LORazepam Inj 2mg/ml 1ml IV PRN ×2 (03:19→12:53)
[2018-12-01] MEDS: HydrALAZINE 50mg tab GT SCH ×3 (05:29→18:33)
[2018-12-01 07:17] LABS: BASOPHILS % (AUTO) 0.4 % (0.0-2.0); EOSINOPHILS % (AUTO) 3.8 % (0.0-3.0); HEMATOCRIT 25.4 % (37.0-47.0); HEMOGLOBIN 8.2 G/DL (12.0-16.0); LYMPHOCYTES % (AUTO) 19.2 % (20.0-45.0); MEAN CORPUSCULAR VOLUME 86 FL (80-99); NEUTROPHILS % (AUTO) 72.5 % (45.0-75.0); PLATELET COUNT 524 K/UL (150-450); RED BLOOD COUNT 2.94 M/UL (4.20-5.40); RED CELL DISTRIBUTION WIDTH 15.4 % (11.6-14.8)
--- NOTE | 2018-12-01 07:24 | Pulmonolgy Critical Care Note ---
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, 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 Discussed with: nurses, consultants, home health care case managermanager agency - Objective Last 24 Hour Vital Signs Date Time Temp Pulse Resp B/P (MAP) Pulse Ox O2 Delivery O2 Flow Rate FiO2 12/01/18 07:00 51 20 155/70 (98) 100 12/01/18 06:00 54 20 157/67 (97) 100 12/01/18 05:29 165/75 12/01/18 05:10 62 20 40 12/01/18 05:00 60 20 161/73 (102) 100 12/01/18 04:00 97.3 74 14 157/80 (105) 100 12/01/18 04:00 Mechanical Ventilator 12/01/18 04:00 40 12/01/18 03:15 81 25 40 12/01/18 03:02 66 12/01/18 03:00 77 17 159/96 (117) 100 12/01/18 02:00 74 15 150/86 (107) 100 12/01/18 01:10 60 20 40 12/01/18 01:00 75 17 152/95 (114) 100 12/01/18 00:00 40 12/01/18 00:00 Mechanical Ventilator 12/01/18 00:00 97.4 73 16 157/89 (111) 100 11/30/18 23:42 74 22 40 11/30/18 23:30 65 22 159/66 (97) 100 11/30/18 23:19 83 11/30/18 23:19 77 11/30/18 23:18 192/97 11/30/18 23:00 81 26 192/97 (128) 100 11/30/18 22:00 81 25 188/111 (136) 100 11/30/18 21:50 63 31 40 11/30/18 21:00 81 22 177/84 (115) 100 11/30/18 21:00 79 26 96 11/30/18 20:00 Mechanical Ventilator 11/30/18 20:00 97.4 84 27 194/103 (133) 95 11/30/18 20:00 40 11/30/18 20:00 78 11/30/18 19:16 85 30 40 11/30/18 19:00 68 25 159/71 (100) 96 11/30/18 18:30 77 21 180/71 (107) 94 11/30/18 18:00 75 25 173/72 (105) 94 11/30/18 18:00 70 25 72/71 (71) 95 11/30/18 17:30 74 23 171/71 (104) 96 11/30/18 17:21 169/67 11/30/18 17:00 73 28 173/76 (108) 11/30/18 16:24 87 31 40 11/30/18 16:00 98.1 68 24 169/67 (101) 92 11/30/18 16:00 40 11/30/18 16:00 Mechanical Ventilator 11/30/18 16:00 72 11/30/18 15:00 91 30 198/101 (133) 97 11/30/18 14:51 77 24 40 11/30/18 14:00 75 23 173/79 (110) 94 11/30/18 13:00 79 24 174/80 (111) 97 11/30/18 12:50 72 27 40 11/30/18 12:18 201/89 11/30/18 12:00 81 11/30/18 12:00 40 11/30/18 12:00 Mechanical Ventilator 11/30/18 12:00 98.1 90 28 194/91 (125) 99 11/30/18 11:00 83 20 169/74 (105) 95 11/30/18 10:35 85 30 40 11/30/18 10:00 70 21 167/69 (101) 94 11/30/18 09:57 76 159/84 11/30/18 09:00 68 22 159/69 (99) 94 11/30/18 08:39 76 27 40 11/30/18 08:00 97.9 86 28 179/88 (118) 94 11/30/18 08:00 40 11/30/18 08:00 73 11/30/18 08:00 Mechanical Ventilator Status: awake, sedated HEENT: atraumatic Lungs: clear Heart: HR/BP stable Abdomen: soft, feeding tube Extremities: no C/C/E Decubiti: location Micro: Microbiology Date/Time Source Procedure Growth Status 11/28/18 13:50 Sputum Gram Stain - Final Complete 11/28/18 13:50 Sputum Culture - Final Pseudomonas Aeruginosa Acinetobacter Baumannii Complx Complete Accucheck: 218 Critical Care - Subjective ROS Limited/Unobtainable: Yes Condition: critical EKG Rhythm: Sinus Rhythm FI02: 40 Vent Support Breath Rate: 20 Vent Support Mode: AC Vent Tidal Volume: 600 Sputum Amount: Scant PEEP: 10.0 PIP: 29 Tube Feeding Amount: 40 I&O: Intake and Output 11/30/18 12/01/18 19:00 07:00 Intake Total 1136.666 ml 245 ml Output Total 610 ml 995 ml Balance 526.666 ml -750 ml Intake Free Water 180 ml IV Total 476.666 ml 55 ml Tube Feeding 480 ml 160 ml Other 30 ml Output Urine Total 610 ml 995 ml # Bowel Movements 3 Labs: Laboratory Tests Test 11/30/18 21:50 12/01/18 06:55 Arterial Blood pH 7.486 (7.350-7.450) Arterial Blood Partial Pressure CO2 28.7 mmHg (35.0-45.0) L Arterial Blood Partial Pressure O2 175.2 mmHg (75.0-100.0) H Arterial Blood HCO3 21.2 mmol/L (22.0-26.0) L Arterial Blood Oxygen Saturation 98.7 % (95-100) Arterial Blood Base Excess -1.2 (-2-2) Rojas Test Positive White Blood Count 15.0 K/UL (4.8-10.8) H Red Blood Count 2.94 M/UL (4.20-5.40) L Hemoglobin 8.2 G/DL (12.0-16.0) L Hematocrit 25.4 % (37.0-47.0) L Mean Corpuscular Volume 86 FL (80-99) Mean Corpuscular Hemoglobin 27.8 PG (27.0-31.0) Mean Corpuscular Hemoglobin Concent 32.2 G/DL (32.0-36.0) Red Cell Distribution Width 15.4 % (11.6-14.8) H Platelet Count 524 K/UL (150-450) H Mean Platelet Volume 4.8 FL (6.5-10.1) L Neutrophils (%) (Auto) 72.5 % (45.0-75.0) Lymphocytes (%) (Auto) 19.2 % (20.0-45.0) L Monocytes (%) (Auto) 4.0 % (1.0-10.0) Eosinophils (%) (Auto) 3.8 % (0.0-3.0) H Basophils (%) (Auto) 0.4 % (0.0-2.0) Sodium Level Pending Potassium Level Pending Chloride Level Pending Carbon Dioxide Level Pending Blood Urea Nitrogen Pending Creatinine Pending Estimat Glomerular Filtration Rate Pending Glucose Level Pending Calcium Level Pending Phosphorus Level Pending Magnesium Level Pending Total Bilirubin Pending Aspartate Amino Transf (AST/SGOT) Pending Alanine Aminotransferase (ALT/SGPT) Pending Alkaline Phosphatase Pending Total Protein Pending Albumin Pending Globulin Pending Vancomycin Level Trough Pending Ranjith Arora MD Dec 01, 2018 07:24
[2018-12-01 07:50] LABS: ALANINE AMINOTRANSFERASE 45 U/L (12-78); ALBUMIN 2.3 G/DL (3.4-5.0); ALBUMIN/GLOBULIN RATIO 0.5 (1.0-2.7); ALKALINE PHOSPHATASE 997 U/L (46-116); ANION GAP 11 mmol/L (5-15); ASPARTATE AMINO TRANSFERASE 30 U/L (15-37); BILIRUBIN,TOTAL 0.6 MG/DL (0.2-1.0); BLOOD UREA NITROGEN 25 mg/dL (7-18); CARBON DIOXIDE 25 MMOL/L (21-32); CHLORIDE 115 MMOL/L (98-107); CREATININE 1.1 MG/DL (0.55-1.30); PHOSPHORUS 3.1 MG/DL (2.5-4.9); POTASSIUM 3.3 MMOL/L (3.5-5.1); SODIUM 151 MMOL/L (136-145)
[2018-12-01] MEDS: Vancomycin 750mg/NS 275ml IVPB SCH ×2 (08:03)
[2018-12-01] MEDS: Thiamine 100mg tab GT SCH (08:07)
[2018-12-01] MEDS: Miralax 17gm pkt GT SCH ×2 (08:08→08:16)
[2018-12-01] MEDS: Heparin 5000 units/ml inj SUBQ SCH ×2 (08:10→20:29)
[2018-12-01] MEDS: Zinc Oxide Oint 2oz TOPIC SCH (08:11)
[2018-12-01] MEDS: DiphenhydrAMINE 50mg/ml Inj IVP PRN ×2 (08:30→18:33)
[2018-12-01] MEDS: Meropenem 1 GM in NS 55 ML IVPB SCH ×2 (09:48→20:28)
--- NOTE | 2018-12-01 11:12 | Diagnostic Imaging Report ---
EXAM: US Abdomen Complete CLINICAL HISTORY: ABN LABS TECHNIQUE: Real-time ultrasound of the abdomen with image documentation. COMPARISON: CT abdomen pelvis on 10 10 2017 FINDINGS: Liver: Measures 16.1 cm. Normal echotexture and contour. No focal lesion. Portal vein: Patent with normal direction of flow. Gallbladder: Nonspecific mild prominence of the gallbladder wall measuring 6.8 mm. No pericholecystic fluid. No stone or sludge. Biliary tree: No abnormal dilatation. Common bile duct measures 5.5 mm. Pancreas: Visualized portions are unremarkable. Spleen: Normal, measuring 11.2 cm. No focal lesion. Right kidney: Measures 9.8 cm in length. No hydronephrosis or stone. No mass. Left kidney: Measures 10.8 cm in length. Severe left hydronephrosis again noted with thinning of the renal parenchyma. Peritoneal space: Large amount of ascites. Aorta: Atherosclerotic changes of the aorta with ectasia of the abdominal aorta measuring 3.4 cm. IVC: Visualized portions are unremarkable. Other: Bilateral pleural effusions. IMPRESSION: 1. Ascites and pleural effusions. 2. Mild thickening of the gallbladder wall is nonspecific and may be secondary to ascites. No stones identified. 3. Severe left hydronephrosis and cortical thinning again noted.
[2018-12-01] MEDS ORDERED: Vancomycin 750mg/NS 275ml IVPB SCH ×2 (15:15)
--- NOTE | 2018-12-01 15:16 | Cardiology Progress Note ---
Assessment/Plan Problem List: (1) Sepsis Assessment & Plan: Hemodynamically stable. WBC elevated today - repeat cultures pending. (2) Bacteremia Assessment & Plan: S epi - on iv abx per ID. Pacer felt to be likely source of infection No evidence for endocarditis by ABBIE 11/27 (3) Pacemaker Assessment & Plan: Pacer pocket site infection, and s epi bacteremia- device and leads removed 11/26. will plan re-implant when ID and pulm status cleared. (4) Acute encephalopathy (5) Acute renal failure (6) Feeding by G-tube (7) Encephalopathy (8) Tracheostomy in place Assessment & Plan: respiratory failure, pneumonia. Remains on high fio2 (9) Aortic dissection, thoracic Assessment & Plan: hx of aortic dissection repair 2018 (10) Hypokalemia (11) Hypernatremia Status: stable, progressing Status Narrative Mrs Gillis is a 48 yo woman with hx of thoracic aortic dissection - repair (appx 1 yr ago) , chronic type b dissection, pneumonia, chronic respiratory failure, on vent, s/p g tube and s/p pacemaker placement on 11/01 at [facility] for sick sinus syndrome. She was adm w/ pain and swelling at pacer pocket site, and has s epi bacteremia. Sputum w/ acinetobacter and MRSA Pacemaker has been removed. Rhythm - SR- SB ( 40s at times), but mainly 50s-60s WBC is improving. She is hypernatremic and hypokalemic Assessment/Plan Continue iv abx per ID. Supplement free water and K Continue to titrate hydralazine for BP Will plan pacemaker reimplant once more stable, id and pulm status improved. Subjective ROS Limited/Unobtainable: No Subjective Cardiac EP Pt intubated, awake and responsive. Denies abd or cp Objective Last 24 Hour Vital Signs Date Time Temp Pulse Resp B/P (MAP) Pulse Ox O2 Delivery O2 Flow Rate FiO2 12/01/18 14:00 69 19 151/77 (101) 100 12/01/18 13:06 57 20 100 12/01/18 13:00 55 20 154/64 (94) 100 12/01/18 12:45 166/74 12/01/18 12:00 97.7 68 23 166/74 (104) 87 12/01/18 12:00 100 12/01/18 12:00 60 12/01/18 12:00 Mechanical Ventilator 12/01/18 11:06 71 22 100 12/01/18 11:00 76 18 177/78 (111) 100 12/01/18 10:00 65 20 141/77 (98) 100 12/01/18 09:00 56 20 164/67 (99) 100 12/01/18 08:41 55 27 100 12/01/18 08:07 81 178/89 12/01/18 08:00 97.6 66 26 178/80 (112) 100 12/01/18 08:00 100 12/01/18 08:00 Mechanical Ventilator 12/01/18 08:00 97 12/01/18 07:25 53 18 100 12/01/18 07:00 51 20 155/70 (98) 100 12/01/18 06:00 54 20 157/67 (97) 100 12/01/18 05:29 165/75 12/01/18 05:10 62 20 40 12/01/18 05:00 60 20 161/73 (102) 100 12/01/18 04:00 97.3 74 14 157/80 (105) 100 12/01/18 04:00 Mechanical Ventilator 12/01/18 04:00 40 12/01/18 03:15 81 25 40 12/01/18 03:02 66 12/01/18 03:00 77 17 159/96 (117) 100 12/01/18 02:00 74 15 150/86 (107) 100 12/01/18 01:10 60 20 40 12/01/18 01:00 75 17 152/95 (114) 100 12/01/18 00:00 40 12/01/18 00:00 Mechanical Ventilator 12/01/18 00:00 97.4 73 16 157/89 (111) 100 11/30/18 23:42 74 22 40 11/30/18 23:30 65 22 159/66 (97) 100 11/30/18 23:19 83 11/30/18 23:19 77 11/30/18 23:18 192/97 11/30/18 23:00 81 26 192/97 (128) 100 11/30/18 22:00 81 25 188/111 (136) 100 11/30/18 21:50 63 31 40 11/30/18 21:00 81 22 177/84 (115) 100 11/30/18 21:00 79 26 96 11/30/18 20:00 Mechanical Ventilator 11/30/18 20:00 97.4 84 27 194/103 (133) 95 11/30/18 20:00 40 11/30/18 20:00 78 11/30/18 19:16 85 30 40 11/30/18 19:00 68 25 159/71 (100) 96 11/30/18 18:30 77 21 180/71 (107) 94 11/30/18 18:00 75 25 173/72 (105) 94 11/30/18 18:00 70 25 72/71 (71) 95 11/30/18 17:30 74 23 171/71 (104) 96 11/30/18 17:21 169/67 11/30/18 17:00 73 28 173/76 (108) 11/30/18 16:24 87 31 40 11/30/18 16:00 98.1 68 24 169/67 (101) 92 11/30/18 16:00 40 11/30/18 16:00 Mechanical Ventilator 11/30/18 16:00 72 General Appearance: other - chronically ill -appearing EENT: PERRL/EOMI Neck: other - trach/ vent Rhythm: NSR, SB Cardiovascular: regular rhythm, no gallop/murmur, bradycardia Respiratory/Chest: other - bilat scattered rhonchi Abdomen: normal bowel sounds, non tender, soft, other - + gtube Extremities: no swelling Intake and Output 11/30/18 12/01/18 19:00 07:00 Intake Total 1136.666 ml 245 ml Output Total 610 ml 995 ml Balance 526.666 ml -750 ml Intake Free Water 180 ml IV Total 476.666 ml 55 ml Tube Feeding 480 ml 160 ml Other 30 ml Output Urine Total 610 ml 995 ml # Bowel Movements 3 Laboratory Tests Test 11/30/18 21:50 12/01/18 06:55 Arterial Blood pH 7.486 (7.350-7.450) Arterial Blood Partial Pressure CO2 28.7 mmHg (35.0-45.0) L Arterial Blood Partial Pressure O2 175.2 mmHg (75.0-100.0) H Arterial Blood HCO3 21.2 mmol/L (22.0-26.0) L Arterial Blood Oxygen Saturation 98.7 % (95-100) Arterial Blood Base Excess -1.2 (-2-2) Rojas Test Positive White Blood Count 15.0 K/UL (4.8-10.8) H Red Blood Count 2.94 M/UL (4.20-5.40) L Hemoglobin 8.2 G/DL (12.0-16.0) L Hematocrit 25.4 % (37.0-47.0) L Mean Corpuscular Volume 86 FL (80-99) Mean Corpuscular Hemoglobin 27.8 PG (27.0-31.0) Mean Corpuscular Hemoglobin Concent 32.2 G/DL (32.0-36.0) Red Cell Distribution Width 15.4 % (11.6-14.8) H Platelet Count 524 K/UL (150-450) H Mean Platelet Volume 4.8 FL (6.5-10.1) L Neutrophils (%) (Auto) 72.5 % (45.0-75.0) Lymphocytes (%) (Auto) 19.2 % (20.0-45.0) L Monocytes (%) (Auto) 4.0 % (1.0-10.0) Eosinophils (%) (Auto) 3.8 % (0.0-3.0) H Basophils (%) (Auto) 0.4 % (0.0-2.0) Sodium Level 151 MMOL/L (136-145) H Potassium Level 3.3 MMOL/L (3.5-5.1) L Chloride Level 115 MMOL/L (98-107) H Carbon Dioxide Level 25 MMOL/L (21-32) Anion Gap 11 mmol/L (5-15) Blood Urea Nitrogen 25 mg/dL (7-18) H Creatinine 1.1 MG/DL (0.55-1.30) Estimat Glomerular Filtration Rate 53.5 mL/min (>60) Glucose Level 97 MG/DL (74-106) Calcium Level 9.0 MG/DL (8.5-10.1) Phosphorus Level 3.1 MG/DL (2.5-4.9) Magnesium Level 2.0 MG/DL (1.8-2.4) Total Bilirubin 0.6 MG/DL (0.2-1.0) Aspartate Amino Transf (AST/SGOT) 30 U/L (15-37) Alanine Aminotransferase (ALT/SGPT) 45 U/L (12-78) Alkaline Phosphatase 997 U/L (46-116) H Total Protein 6.7 G/DL (6.4-8.2) Albumin 2.3 G/DL (3.4-5.0) L Globulin 4.4 g/dL Albumin/Globulin Ratio 0.5 (1.0-2.7) L Vancomycin Level Trough 16.5 ug/mL (5.0-12.0) H Lani Lyle MD Dec 01, 2018 15:16
[2018-12-01] MEDS ORDERED: Tubing IV Secondary IV ONE ×2 (15:22→16:55)
[2018-12-01] MEDS ORDERED: NS 275ml ONE ×2 (15:22→16:55)
[2018-12-01] MEDS: Tylenol #3 tab (300mg/30mg) GT PRN (18:33)
--- NOTE | 2018-12-01 20:12 | Hematology/Onc Progress Note ---
Assessment/Plan Assessment/Plan # Anemia of chronic disease due to underlying chronic medical issues, multifactorial --> Anemia workup has been reviewed, cw acd --> No evidence of hemolysis is noted, peripheral smear has been reviewed. --> Hgb goal >7. Transfuse prn. --> Epogen or iron at this time is not particularly indicated --> Medications have been reviewed --> low threshold for gi evaluation in case has occult + --> hgb 7.1-->7.8-->8.9->9.2-->8.5 # Leukocytosis, recurrent- increased, now improving --> PPM site (pocket) infection (redness and pain, bacteremia) and likely pocket abscess- no vegetation seen on ABBIE --> is s'p pm removal and also pocket infection is better --> per cards recs in re to tach/davis --> wbc 15-->19-->17-->15 # Acute hypoxic respiratory failure s/p intubation 11/23- ?ARDS --> on vent/trach # Gram positive bacteremia- real bacteremia- 2ry to above and probable PNA --> per id care # JAVIER initially >2 --> now improved # Dypshagia s/p peg # thoracic aortic dissection s/p repair early 2018 # [place] resident # Dvt ppx scds The timing of this note does not necessarily reflect the time of the patient was seen. Greatly appreciate consultation. Subjective Gastrointestinal/Abdominal: Denies: no symptoms, abdomen distended, abdominal pain, black stools, tarry stools, blood in stool, constipated, diarrhea, difficulty swallowing, nausea, poor appetite, poor fluid intake, rectal bleeding , vomiting, other Genitourinary: Denies: no symptoms, burning, discharge, frequency, flank pain, hematuria, incontinence, pain, urgency, other Neurologic/Psychiatric: Denies: no symptoms, anxiety, depressed, emotional problems, headache, numbness, paresthesia, pre-existing deficit, seizure, tingling, tremors, weakness, other Endocrine: Denies: no symptoms, excessive sweating, flushing, intolerance to cold, intolerance to heat, increased hunger, increased thirst, increased urine, unexplained weight gain, unexplained weight loss, other Hematologic/Lymphatic: Denies: no symptoms, anemia, easy bleeding, easy bruising, adenopathy, other Allergies: Coded Allergies: No Known Allergies (Unverified , 10/10/17) Subjective 11/27: PRBC was given yest, no events, seen by cards, no bleeding 11/28: laying in bed, nonverbal, agitated, pulling on trach 11/29: gtube feeds per rd, no bleeding or chills noted, in icu 11/30: no events to report, no bleeding 12/01: labs reviewe,d on trach/vent in icu, no changes per rn Objective Objective Current Medications Medications (Trade) Dose Ordered Sig/Penny Route PRN Reason Start Time Stop Time Status Last Admin Dose Admin Acetaminophen (Tylenol) 650 mg Q4H PRN ORAL Mild Pain/Temp > 100.5 11/23/18 14:00 12/19/18 13:59 12/01/18 12:47 Acetaminophen/ Codeine Phosphate (Tylenol #3) 1 tab Q6H PRN GT Moderate Pain (Pain Scale 4-6) 11/26/18 13:00 12/03/18 12:59 12/01/18 18:33 Amlodipine Besylate (Norvasc) 10 mg DAILY GT 11/24/18 09:00 12/19/18 08:59 12/01/18 08:07 Dextrose 500 ml @ 100 mls/hr ONCE ONCE IV 12/01/18 15:22 12/01/18 20:21 12/01/18 15:35 Diphenhydramine HCl (Benadryl) 25 mg Q6H PRN IVP Itching 11/23/18 14:00 12/21/18 13:59 12/01/18 18:33 Haloperidol Lactate (Haldol) 5 mg Q6H PRN IM Agitation 11/24/18 00:30 12/24/18 00:29 11/30/18 23:18 Heparin Sodium (Porcine) (Heparin 5000 units/ml) 5,000 units EVERY 12 HOURS SUBQ 11/23/18 21:00 12/19/18 08:59 12/01/18 08:10 Hydralazine HCl (Apresoline) 100 mg Q6HR GT 12/01/18 00:00 12/31/18 00:00 12/01/18 18:33 Lansoprazole (Prevacid) 30 mg DAILY GT 11/30/18 09:00 12/30/18 08:59 12/01/18 08:07 Lorazepam (Ativan 2mg/ml 1ml) 1 mg Q4H PRN IV For Anxiety 12/01/18 12:30 12/08/18 12:29 12/01/18 12:53 Meropenem 1 gm/ Sodium Chloride 55 ml @ 110 mls/hr Q12HR IVPB 11/29/18 14:00 12/04/18 13:59 12/01/18 09:48 Ondansetron HCl (Zofran) 4 mg Q8H PRN IM Nausea & Vomiting 11/23/18 14:00 12/19/18 13:59 Polyethylene Glycol (Miralax) 17 gm DAILY GT 11/28/18 21:45 12/28/18 21:44 11/28/18 21:58 Thiamine HCl (Vitamin B1) 100 mg DAILY GT 11/24/18 09:00 12/19/18 08:59 12/01/18 08:07 Vancomycin HCl (Vanco rx to dose) 1 ea DAILY PRN MISC Per rx protocol 11/25/18 07:45 12/25/18 07:44 Vancomycin HCl 750 mg/Sodium Chloride 275 ml @ 183.333 mls/hr Q24H IVPB 12/02/18 08:00 12/07/18 07:59 Zinc Oxide (Zinc Oxide) 1 applic DAILY TOPIC 11/29/18 15:30 12/29/18 15:29 12/01/18 08:11 Last 24 Hour Vital Signs Date Time Temp Pulse Resp B/P (MAP) Pulse Ox O2 Delivery O2 Flow Rate FiO2 12/01/18 18:57 65 22 80 12/01/18 18:33 149/55 12/01/18 18:00 54 20 149/55 (86) 100 12/01/18 17:00 69 23 149/63 (91) 100 12/01/18 16:51 78 30 100 12/01/18 16:00 Mechanical Ventilator 12/01/18 16:00 97.7 68 23 157/71 (99) 100 12/01/18 16:00 65 12/01/18 16:00 100 12/01/18 15:00 55 20 153/66 (95) 100 12/01/18 14:30 56 20 100 12/01/18 14:00 69 19 151/77 (101) 100 12/01/18 13:06 57 20 100 12/01/18 13:00 55 20 154/64 (94) 100 12/01/18 12:45 166/74 12/01/18 12:00 97.7 68 23 166/74 (104) 87 12/01/18 12:00 100 12/01/18 12:00 60 12/01/18 12:00 Mechanical Ventilator 12/01/18 11:06 71 22 100 12/01/18 11:00 76 18 177/78 (111) 100 12/01/18 10:00 65 20 141/77 (98) 100 12/01/18 09:00 56 20 164/67 (99) 100 12/01/18 08:41 55 27 100 12/01/18 08:07 81 178/89 12/01/18 08:00 97.6 66 26 178/80 (112) 100 12/01/18 08:00 100 12/01/18 08:00 Mechanical Ventilator 12/01/18 08:00 97 12/01/18 07:25 53 18 100 12/01/18 07:00 51 20 155/70 (98) 100 12/01/18 06:00 54 20 157/67 (97) 100 12/01/18 05:29 165/75 12/01/18 05:10 62 20 40 12/01/18 05:00 60 20 161/73 (102) 100 12/01/18 04:00 97.3 74 14 157/80 (105) 100 12/01/18 04:00 Mechanical Ventilator 12/01/18 04:00 40 12/01/18 03:15 81 25 40 12/01/18 03:02 66 12/01/18 03:00 77 17 159/96 (117) 100 12/01/18 02:00 74 15 150/86 (107) 100 12/01/18 01:10 60 20 40 12/01/18 01:00 75 17 152/95 (114) 100 12/01/18 00:00 40 12/01/18 00:00 Mechanical Ventilator 12/01/18 00:00 97.4 73 16 157/89 (111) 100 11/30/18 23:42 74 22 40 11/30/18 23:30 65 22 159/66 (97) 100 11/30/18 23:19 83 11/30/18 23:19 77 11/30/18 23:18 192/97 11/30/18 23:00 81 26 192/97 (128) 100 11/30/18 22:00 81 25 188/111 (136) 100 11/30/18 21:50 63 31 40 11/30/18 21:00 81 22 177/84 (115) 100 11/30/18 21:00 79 26 96 11/30/18 20:00 Mechanical Ventilator 11/30/18 20:00 97.4 84 27 194/103 (133) 95 11/30/18 20:00 40 11/30/18 20:00 78 11/30/18 19:16 85 30 40 11/30/18 19:00 68 25 159/71 (100) 96 11/30/18 18:30 77 21 180/71 (107) 94 11/30/18 18:00 75 25 173/72 (105) 94 11/30/18 18:00 70 25 72/71 (71) 95 11/30/18 17:30 74 23 171/71 (104) 96 11/30/18 17:21 169/67 11/30/18 17:00 73 28 173/76 (108) 11/30/18 16:24 87 31 40 11/30/18 16:00 98.1 68 24 169/67 (101) 92 11/30/18 16:00 40 11/30/18 16:00 Mechanical Ventilator 11/30/18 16:00 72 11/30/18 15:00 91 30 198/101 (133) 97 11/30/18 14:51 77 24 40 11/30/18 14:00 75 23 173/79 (110) 94 11/30/18 13:00 79 24 174/80 (111) 97 11/30/18 12:50 72 27 40 11/30/18 12:18 201/89 11/30/18 12:00 81 11/30/18 12:00 40 11/30/18 12:00 Mechanical Ventilator 11/30/18 12:00 98.1 90 28 194/91 (125) 99 11/30/18 11:00 83 20 169/74 (105) 95 11/30/18 10:35 85 30 40 11/30/18 10:00 70 21 167/69 (101) 94 11/30/18 09:57 76 159/84 11/30/18 09:00 68 22 159/69 (99) 94 11/30/18 08:39 76 27 40 11/30/18 08:00 97.9 86 28 179/88 (118) 94 11/30/18 08:00 40 11/30/18 08:00 73 11/30/18 08:00 Mechanical Ventilator 11/30/18 07:00 81 31 159/84 (109) 97 11/30/18 06:50 88 31 40 11/30/18 06:00 74 23 146/87 (106) 95 11/30/18 05:36 182/87 11/30/18 05:36 90 29 182/87 (118) 96 11/30/18 05:30 90 36 204/110 (141) 96 11/30/18 05:04 92 26 192/86 (121) 100 11/30/18 05:03 90 30 40 11/30/18 05:00 95 28 223/167 (185) 95 11/30/18 04:00 40 11/30/18 04:00 Mechanical Ventilator 11/30/18 04:00 97.8 75 21 176/80 (112) 95 11/30/18 03:41 73 11/30/18 03:29 73 26 40 11/30/18 03:00 76 19 168/87 (114) 95 11/30/18 02:02 76 25 172/79 (110) 96 11/30/18 02:00 80 25 95 11/30/18 01:32 69 25 160/79 (106) 96 11/30/18 01:12 69 26 40 11/30/18 01:00 69 22 166/71 (102) 97 11/30/18 00:00 98.4 69 23 172/67 (102) 98 11/30/18 00:00 Mechanical Ventilator 11/30/18 00:00 40 11/29/18 23:33 146/66 11/29/18 23:21 62 11/29/18 23:13 66 21 100 Mechanical Ventilator 68 23 100 11/29/18 23:12 66 21 40 11/29/18 23:00 75 19 169/98 (121) 89 11/29/18 22:00 64 20 154/64 (94) 93 11/29/18 21:22 76 24 40 11/29/18 21:00 74 22 153/65 (94) 96 Intake and Output 11/30/18 12/01/18 18:59 06:59 Intake Total 1136.666 ml 285 ml Output Total 610 ml 980 ml Balance 526.666 ml -695 ml Intake Free Water 180 ml IV Total 476.666 ml 55 ml Tube Feeding 480 ml 200 ml Other 30 ml Output Urine Total 610 ml 980 ml # Bowel Movements 3 Labs Test 11/29/18 03:45 11/30/18 03:45 11/30/18 21:50 12/01/18 06:55 White Blood Count 21.2 K/UL (4.8-10.8) 17.6 K/UL (4.8-10.8) 15.0 K/UL (4.8-10.8) Red Blood Count 3.14 M/UL (4.20-5.40) 3.23 M/UL (4.20-5.40) 2.94 M/UL (4.20-5.40) Hemoglobin 9.0 G/DL (12.0-16.0) 9.2 G/DL (12.0-16.0) 8.2 G/DL (12.0-16.0) Hematocrit 27.7 % (37.0-47.0) 29.2 % (37.0-47.0) 25.4 % (37.0-47.0) Mean Corpuscular Volume 88 FL (80-99) 90 FL (80-99) 86 FL (80-99) Mean Corpuscular Hemoglobin 28.6 PG (27.0-31.0) 28.6 PG (27.0-31.0) 27.8 PG (27.0-31.0) Mean Corpuscular Hemoglobin Concent 32.4 G/DL (32.0-36.0) 31.7 G/DL (32.0-36.0) 32.2 G/DL (32.0-36.0) Red Cell Distribution Width 15.1 % (11.6-14.8) 15.3 % (11.6-14.8) 15.4 % (11.6-14.8) Platelet Count 408 K/UL (150-450) 409 K/UL (150-450) 524 K/UL (150-450) Mean Platelet Volume 6.4 FL (6.5-10.1) 5.2 FL (6.5-10.1) 4.8 FL (6.5-10.1) Neutrophils (%) (Auto) % (45.0-75.0) 78.4 % (45.0-75.0) 72.5 % (45.0-75.0) Lymphocytes (%) (Auto) % (20.0-45.0) 12.4 % (20.0-45.0) 19.2 % (20.0-45.0) Monocytes (%) (Auto) % (1.0-10.0) 5.6 % (1.0-10.0) 4.0 % (1.0-10.0) Eosinophils (%) (Auto) % (0.0-3.0) 2.5 % (0.0-3.0) 3.8 % (0.0-3.0) Basophils (%) (Auto) % (0.0-2.0) 1.1 % (0.0-2.0) 0.4 % (0.0-2.0) Differential Total Cells Counted 100 Neutrophils % (Manual) 84 % (45-75) Lymphocytes % (Manual) 8 % (20-45) Monocytes % (Manual) 6 % (1-10) Eosinophils % (Manual) 2 % (0-3) Basophils % (Manual) 0 % (0-2) Band Neutrophils 0 % (0-8) Platelet Estimate Adequate Platelet Morphology Normal Anisocytosis 1+ Sodium Level 146 MMOL/L (136-145) 148 MMOL/L (136-145) 151 MMOL/L (136-145) Potassium Level 3.3 MMOL/L (3.5-5.1) 3.7 MMOL/L (3.5-5.1) 3.3 MMOL/L (3.5-5.1) Chloride Level 113 MMOL/L (98-107) 113 MMOL/L (98-107) 115 MMOL/L (98-107) Carbon Dioxide Level 24 MMOL/L (21-32) 19 MMOL/L (21-32) 25 MMOL/L (21-32) Anion Gap 10 mmol/L (5-15) 17 mmol/L (5-15) 11 mmol/L (5-15) Blood Urea Nitrogen 36 mg/dL (7-18) 36 mg/dL (7-18) 25 mg/dL (7-18) Creatinine 1.4 MG/DL (0.55-1.30) 1.5 MG/DL (0.55-1.30) 1.1 MG/DL (0.55-1.30) Estimat Glomerular Filtration Rate 40.5 mL/min (>60) 37.4 mL/min (>60) 53.5 mL/min (>60) Glucose Level 123 MG/DL (74-106) 97 MG/DL (74-106) 97 MG/DL (74-106) Calcium Level 9.0 MG/DL (8.5-10.1) 8.9 MG/DL (8.5-10.1) 9.0 MG/DL (8.5-10.1) Total Bilirubin 0.8 MG/DL (0.2-1.0) 0.7 MG/DL (0.2-1.0) 0.6 MG/DL (0.2-1.0) Aspartate Amino Transf (AST/SGOT) 32 U/L (15-37) 43 U/L (15-37) 30 U/L (15-37) Alanine Aminotransferase (ALT/SGPT) 42 U/L (12-78) 46 U/L (12-78) 45 U/L (12-78) Alkaline Phosphatase 957 U/L (46-116) 938 U/L (46-116) 997 U/L (46-116) Pro-B-Type Natriuretic Peptide > 67626 pg/mL (0-125) Total Protein 7.5 G/DL (6.4-8.2) 7.5 G/DL (6.4-8.2) 6.7 G/DL (6.4-8.2) Albumin 2.4 G/DL (3.4-5.0) 2.5 G/DL (3.4-5.0) 2.3 G/DL (3.4-5.0) Globulin 5.1 g/dL 5.0 g/dL 4.4 g/dL Albumin/Globulin Ratio 0.5 (1.0-2.7) 0.5 (1.0-2.7) 0.5 (1.0-2.7) Erythrocyte Sedimentation Rate 109 MM/HR (0-20) Phosphorus Level 2.7 MG/DL (2.5-4.9) 3.1 MG/DL (2.5-4.9) Magnesium Level 2.0 MG/DL (1.8-2.4) 2.0 MG/DL (1.8-2.4) C-Reactive Protein, Quantitative 10.1 mg/dL (0.00-0.90) Arterial Blood pH 7.486 (7.350-7.450) Arterial Blood Partial Pressure CO2 28.7 mmHg (35.0-45.0) Arterial Blood Partial Pressure O2 175.2 mmHg (75.0-100.0) Arterial Blood HCO3 21.2 mmol/L (22.0-26.0) Arterial Blood Oxygen Saturation 98.7 % (95-100) Arterial Blood Base Excess -1.2 (-2-2) Rojas Test Positive Vancomycin Level Trough 16.5 ug/mL (5.0-12.0) Height (Feet): 5 Height (Inches): 5.00 Weight (Pounds): 144 Objective Gen: on vent, altered HEENT Sclerae were white. ENT ++trach/vent NECK: Supple. No lymphadenopathy. LUNGS: Clear. HEART: PMI was in fifth left intercostal space in midclavicular line. ABDOMEN: Soft, nontender without organomegaly. There were no masses ++ peg EXTREMITIES: No cyanosi vEan Muhammad MD Dec 01, 2018 20:12
[2018-12-02] VITALS (21 sets, daily range): BP systolic 109–187; BP diastolic 46–119
[2018-12-02] MEDS: HydrALAZINE 50mg tab GT SCH ×4 (00:06→17:47)
[2018-12-02] MEDS: LORazepam Inj 2mg/ml 1ml IV PRN ×5 (00:53→20:24)
[2018-12-02 05:17] LABS: BASOPHILS % (AUTO) 0.7 % (0.0-2.0); EOSINOPHILS % (AUTO) 5.2 % (0.0-3.0); HEMATOCRIT 26.1 % (37.0-47.0); HEMOGLOBIN 8.5 G/DL (12.0-16.0); LYMPHOCYTES % (AUTO) 22.2 % (20.0-45.0); MEAN CORPUSCULAR VOLUME 87 FL (80-99); MONOCYTES % (AUTO) 5.2 % (1.0-10.0); NEUTROPHILS % (AUTO) 66.8 % (45.0-75.0); PLATELET COUNT 610 K/UL (150-450); RED CELL DISTRIBUTION WIDTH 15.5 % (11.6-14.8); WHITE BLOOD COUNT 15.2 K/UL (4.8-10.8)
[2018-12-02 06:20] LABS: ALANINE AMINOTRANSFERASE 60 U/L (12-78); ALBUMIN 2.4 G/DL (3.4-5.0); ALBUMIN/GLOBULIN RATIO 0.5 (1.0-2.7); ALKALINE PHOSPHATASE 1054 U/L (46-116); ANION GAP 12 mmol/L (5-15); ASPARTATE AMINO TRANSFERASE 61 U/L (15-37); BILIRUBIN,TOTAL 0.7 MG/DL (0.2-1.0); BLOOD UREA NITROGEN 22 mg/dL (7-18); CARBON DIOXIDE 23 MMOL/L (21-32); CHLORIDE 113 MMOL/L (98-107); CREATININE 1.1 MG/DL (0.55-1.30); PHOSPHORUS 3.5 MG/DL (2.5-4.9); POTASSIUM 3.4 MMOL/L (3.5-5.1); SODIUM 148 MMOL/L (136-145)
[2018-12-02] MEDS ORDERED: Vancomycin 750mg/NS 275ml IVPB SCH ×2 (08:00)
[2018-12-02] MEDS: Meropenem 1 GM in NS 55 ML IVPB SCH ×2 (08:58→20:22)
[2018-12-02] MEDS: Thiamine 100mg tab GT SCH (08:59)
[2018-12-02] MEDS: Tylenol #3 tab (300mg/30mg) GT PRN (09:00)
[2018-12-02] MEDS: Miralax 17gm pkt GT SCH (09:00)
[2018-12-02] MEDS: Zinc Oxide Oint 2oz TOPIC SCH (09:00)
[2018-12-02] MEDS: Heparin 5000 units/ml inj SUBQ SCH ×2 (09:04→20:24)
--- NOTE | 2018-12-02 09:13 | Diagnostic Imaging Report ---
EXAM: XR Chest, 1 View CLINICAL HISTORY: DYSPNEA TECHNIQUE: Frontal view of the chest. COMPARISON: Chest x-ray, 11 29 18 FINDINGS: Lungs: Bilateral airspace opacities, worse in the right lung, has improved since the prior study. Pleural space: Unremarkable. No pneumothorax. Heart: Cardiomegaly. Mediastinum: Unremarkable. Bones joints: Median sternotomy. Tubes, lines and devices: Tracheostomy tube. IMPRESSION: Bilateral airspace opacities, worse in the right lung, has improved since the prior study.
--- NOTE | 2018-12-02 12:14 | Infectious Diseases Prog Note ---
Assessment/Plan Assessment/Plan Assessment: Acute on chronic hypoxic respiratory failure - ?ARDS Fever;SP Leukocytosis, recurrent- increased, now improving -u.a wbc 5-10, nit neg, leuk +1 PPM site (pocket) infection (redness and pain, bacteremia) and likely pocket abscess- no vegetation seen on ABBIE -11/27 SP ABBIE: no evidence for vegetation on any of the valves -11/26 SP PPM removal: -OR findings:The fibrous capsule enclosing the generator was then opened and there was a [id number] amount of yellowish fluid drainage. The generator was then removed.Atrial and ventricular leads were detached. The necrotic tissue of the pocket was then removed and the pocket was flushed with an antibiotic solution. -Capsule, wound tissue and lead tip cx: NTD -2d echo: no vegetation seen -US chest: 4.6 x 3.4 x 0.9 cm hypoechoic/anechoic area overlying left chest pacemaker power pack. This could represent either a discrete fluid collection or a focal area of very edematous tissue. Infected fluid pocket also possible. Gram positive bacteremia- real bacteremia- 2ry to above -11/18 Bcx 3/4 S. epi; 11/20 Bcx neg; 11/24 Bcx NTD; 11/27 Bcx NTD Probable PNA -12/02 CXR: Bilateral airspace opacities, worse in the right lung, has improved since the prior study. -11/28 sp cx: PsA (arnett S), ABC (I Ceftriaxone; otherwise negative) -11/26 CXR: Slightly improved aeration of the right lung base. Otherwise mostly stable bilateral interstitial and airspace disease -CXR: etrocardiac consolidation, possibly pneumonia. Right basilar atelectasis -sp cx MRSA, ABC (I Ceftriaxone; otherwise S) Recent aspiration PNA and UTI (late September 2018) -u/a wbc 5-10, nit +, leuk +1; ucx >100k Enterobacter aerogenes (R ancef, nitro; otherwise S) -sp cx MRSA, ABC (I Ceftriaxone); repeat sp cx 11/28 p HTN anxiety chronic resp failure s/p trach s/p PEG thoracic aortic dissection s/p repair early 2017 [place] resident Plan: -Continue empiric IV Vancomycin #15 for S. epi bacteremia, PPM site infection and abscess and PNA - guidelines favor treatment for endocarditis in the setting of +pocket infection and bacteremia with Staph; expected end date 12/31/18; weekly CBC, BMP , Vanco through -in terms of device re-implantation, will await patient afebrile for at least 48hrs, leukocytosis resolved and repeat Bcx 11/27 (after device removal) negative in 72 hours -Continue Meropenem #4 (abx d #13) for PNA given worsening wbc -11/29 SP Zosyn #11 -f.u cx -Monitor CBC/CMP, temperatures -Cards f/u -f/u repeat Bcx x2, OR cultures -Cdiff if diarrhea -f/u sp cx -If wbc remains elevated and when Cr better improved, will do CT chest abd/p w/ Thank you for this consultation. Will continue to follow along with you. Subjective Allergies: Coded Allergies: No Known Allergies (Unverified , 10/10/17) Subjective afebrile wbc improving repeat BCx NTD Fio2 was increased;now down to 60% remains in ICU Objective Vital Signs Last 24 Hour Vital Signs Date Time Temp Pulse Resp B/P (MAP) Pulse Ox O2 Delivery O2 Flow Rate FiO2 12/02/18 11:00 50 20 176/75 (108) 100 12/02/18 10:32 58 22 60 12/02/18 10:00 60 20 175/71 (105) 97 12/02/18 09:00 60 19 178/74 (108) 100 12/02/18 08:59 61 167/119 12/02/18 08:43 68 22 60 12/02/18 08:00 98.3 102 27 167/119 (135) 100 12/02/18 08:00 Mechanical Ventilator 12/02/18 08:00 60 12/02/18 07:00 52 20 156/62 (93) 95 12/02/18 06:31 52 20 60 12/02/18 06:00 53 20 158/62 (94) 95 12/02/18 05:46 174/74 12/02/18 05:05 61 20 60 12/02/18 05:00 73 21 174/74 (107) 99 12/02/18 04:00 60 12/02/18 04:00 54 12/02/18 04:00 61 20 163/60 (94) 100 12/02/18 04:00 Mechanical Ventilator 12/02/18 03:00 54 16 147/57 (87) 96 10/20/19 02:56 55 20 70 12/02/18 02:00 69 24 170/62 (98) 100 12/02/18 01:20 83 27 70 12/02/18 01:00 73 15 178/77 (110) 100 12/02/18 00:06 158/58 12/02/18 00:00 Mechanical Ventilator 12/02/18 00:00 97.7 60 19 158/58 (91) 98 12/02/18 00:00 54 12/01/18 23:00 70 12/01/18 23:00 54 20 124/53 (76) 96 12/01/18 22:42 54 20 70 12/01/18 22:00 64 21 146/53 (84) 58 12/01/18 21:00 64 21 169/74 (105) 100 12/01/18 21:00 68 22 80 12/01/18 20:00 64 12/01/18 20:00 97.8 67 20 172/72 (105) 99 12/01/18 20:00 Mechanical Ventilator 12/01/18 20:00 80 12/01/18 19:00 64 21 184/77 (112) 98 12/01/18 18:57 65 22 80 12/01/18 18:33 149/55 12/01/18 18:00 54 20 149/55 (86) 100 12/01/18 17:00 69 23 149/63 (91) 100 12/01/18 16:51 78 30 100 12/01/18 16:00 Mechanical Ventilator 12/01/18 16:00 97.7 68 23 157/71 (99) 100 12/01/18 16:00 65 12/01/18 16:00 100 12/01/18 15:00 55 20 153/66 (95) 100 12/01/18 14:30 56 20 100 12/01/18 14:00 69 19 151/77 (101) 100 12/01/18 13:06 57 20 100 12/01/18 13:00 55 20 154/64 (94) 100 12/01/18 12:45 166/74 Height (Feet): 5 Height (Inches): 5.00 Weight (Pounds): 143 Objective HEENT: Eyes were normal. Pupils were round, equal, and reactive to light. Sclerae were white. Conjunctivae were pink. ENT, mucous membranes were not dehydrated. NECK: Supple. No lymphadenopathy. LUNGS: Clear. HEART: PMI was in fifth left intercostal space in midclavicular line. There was normal S1 and normal S2. There was no murmur. No arrhythmia. No S3. No S4. No pericardial rub. ABDOMEN: Soft, nontender without organomegaly. There were no masses palpable. Normal bowel sounds without bruits. There was no guarding. No rebound tenderness. No CVA tenderness. EXTREMITIES: No cyanosis, clubbing, and no edema. Extremities were warm. Laboratory Tests Test 12/02/18 04:47 12/02/18 08:45 White Blood Count 15.2 K/UL (4.8-10.8) H Red Blood Count 3.00 M/UL (4.20-5.40) L Hemoglobin 8.5 G/DL (12.0-16.0) L Hematocrit 26.1 % (37.0-47.0) L Mean Corpuscular Volume 87 FL (80-99) Mean Corpuscular Hemoglobin 28.5 PG (27.0-31.0) Mean Corpuscular Hemoglobin Concent 32.7 G/DL (32.0-36.0) Red Cell Distribution Width 15.5 % (11.6-14.8) H Platelet Count 610 K/UL (150-450) H Mean Platelet Volume 4.9 FL (6.5-10.1) L Neutrophils (%) (Auto) 66.8 % (45.0-75.0) Lymphocytes (%) (Auto) 22.2 % (20.0-45.0) Monocytes (%) (Auto) 5.2 % (1.0-10.0) Eosinophils (%) (Auto) 5.2 % (0.0-3.0) H Basophils (%) (Auto) 0.7 % (0.0-2.0) Sodium Level 148 MMOL/L (136-145) H Potassium Level 3.4 MMOL/L (3.5-5.1) L Chloride Level 113 MMOL/L (98-107) H Carbon Dioxide Level 23 MMOL/L (21-32) Anion Gap 12 mmol/L (5-15) Blood Urea Nitrogen 22 mg/dL (7-18) H Creatinine 1.1 MG/DL (0.55-1.30) Estimat Glomerular Filtration Rate 53.5 mL/min (>60) Glucose Level 99 MG/DL (74-106) Calcium Level 9.0 MG/DL (8.5-10.1) Phosphorus Level 3.5 MG/DL (2.5-4.9) Magnesium Level 2.0 MG/DL (1.8-2.4) Total Bilirubin 0.7 MG/DL (0.2-1.0) Aspartate Amino Transf (AST/SGOT) 61 U/L (15-37) H Alanine Aminotransferase (ALT/SGPT) 60 U/L (12-78) Alkaline Phosphatase 1054 U/L (46-116) H Total Protein 6.8 G/DL (6.4-8.2) Albumin 2.4 G/DL (3.4-5.0) L Globulin 4.4 g/dL Albumin/Globulin Ratio 0.5 (1.0-2.7) L Arterial Blood pH 7.471 (7.350-7.450) Arterial Blood Partial Pressure CO2 28.6 mmHg (35.0-45.0) L Arterial Blood Partial Pressure O2 105.0 mmHg (75.0-100.0) H Arterial Blood HCO3 20.4 mmol/L (22.0-26.0) L Arterial Blood Oxygen Saturation 97.4 % (95-100) Arterial Blood Base Excess -2.5 (-2-2) L Rojas Test Positive Current Medications Medications (Trade) Dose Ordered Sig/Penny Route PRN Reason Start Time Stop Time Status Last Admin Dose Admin Acetaminophen (Tylenol) 650 mg Q4H PRN ORAL Mild Pain/Temp > 100.5 11/23/18 14:00 12/19/18 13:59 12/01/18 12:47 Acetaminophen/ Codeine Phosphate (Tylenol #3) 1 tab Q6H PRN GT Moderate Pain (Pain Scale 4-6) 12/02/18 13:00 12/10/18 12:59 Amlodipine Besylate (Norvasc) 10 mg DAILY GT 11/24/18 09:00 12/19/18 08:59 12/02/18 08:59 Diphenhydramine HCl (Benadryl) 25 mg Q6H PRN IVP Itching 11/23/18 14:00 12/21/18 13:59 12/01/18 18:33 Haloperidol Lactate (Haldol) 5 mg Q6H PRN IM Agitation 11/24/18 00:30 12/24/18 00:29 11/30/18 23:18 Heparin Sodium (Porcine) (Heparin 5000 units/ml) 5,000 units EVERY 12 HOURS SUBQ 11/23/18 21:00 12/19/18 08:59 12/02/18 09:04 Hydralazine HCl (Apresoline) 100 mg Q6HR GT 12/01/18 00:00 12/31/18 00:00 12/02/18 05:46 Lansoprazole (Prevacid) 30 mg DAILY GT 11/30/18 09:00 12/30/18 08:59 12/02/18 09:00 Lorazepam (Ativan 2mg/ml 1ml) 1 mg Q4H PRN IV For Anxiety 12/01/18 12:30 12/08/18 12:29 12/02/18 09:38 Meropenem 1 gm/ Sodium Chloride 55 ml @ 110 mls/hr Q12HR IVPB 11/29/18 14:00 12/04/18 13:59 12/02/18 08:58 Ondansetron HCl (Zofran) 4 mg Q8H PRN IM Nausea & Vomiting 11/23/18 14:00 12/19/18 13:59 Polyethylene Glycol (Miralax) 17 gm DAILY GT 11/28/18 21:45 12/28/18 21:44 11/28/18 21:58 Potassium Chloride (K-Dur) 40 meq ONCE GT 12/02/18 12:00 12/02/18 13:59 Thiamine HCl (Vitamin B1) 100 mg DAILY GT 11/24/18 09:00 12/19/18 08:59 12/02/18 08:59 Vancomycin HCl (Vanco rx to dose) 1 ea DAILY PRN MISC Per rx protocol 11/25/18 07:45 12/25/18 07:44 Vancomycin HCl 750 mg/Sodium Chloride 275 ml @ 183.333 mls/hr Q24H IVPB 12/02/18 08:00 12/07/18 07:59 12/02/18 08:58 Zinc Oxide (Zinc Oxide) 1 applic DAILY TOPIC 11/29/18 15:30 12/29/18 15:29 12/02/18 09:00 Doreen Nino M.D. Dec 02, 2018 12:14
[2018-12-02] MEDS ORDERED: Tylenol #3 tab (300mg/30mg) GT PRN (13:00)
[2018-12-02] MEDS ORDERED: D5W 250 ML IVPB ONE (14:45)
--- NOTE | 2018-12-02 14:46 | Pulmonolgy Critical Care Note ---
Critical Care - Asmt/Plan Problems: (1) Chronic respiratory failure (2) Chest pain (3) JAVIER (acute kidney injury) (4) Anemia (5) Ventilator dependence (6) S/P aortic dissection repair (7) Tracheostomy in place (8) Feeding by G-tube (9) Bacteremia Respiratory: monitor respiratory rate, adjust FIO2, CXR Cardiac: continue pressors, continue to monitor HR/BP Renal: F/U I&O, keep IV fluid, check electrolytes Infectious Disease: check cultures Gastrointestinal: continue feedings/current rate Endocrine: monitor blood sugar, check TSH, check HgA1C Hematologic: transfuse if hgb<8.5 Neurologic: keep patient comfortable Prophylaxis: Protonix, Heparin Time Spent (Minutes): 40 Notes Reviewed: head swamper, cardio, renal Discussed with: nurses, consultants, case therapistmanager cable - Objective Last 24 Hour Vital Signs Date Time Temp Pulse Resp B/P (MAP) Pulse Ox O2 Delivery O2 Flow Rate FiO2 12/02/18 13:03 60 20 60 12/02/18 12:17 154/61 12/02/18 12:00 Mechanical Ventilator 12/02/18 12:00 52 12/02/18 11:00 50 20 176/75 (108) 100 12/02/18 10:32 58 22 60 12/02/18 10:00 60 20 175/71 (105) 97 12/02/18 09:00 60 19 178/74 (108) 100 12/02/18 08:59 61 167/119 12/02/18 08:43 68 22 60 12/02/18 08:00 98.3 102 27 167/119 (135) 100 12/02/18 08:00 56 12/02/18 08:00 Mechanical Ventilator 12/02/18 08:00 60 12/02/18 07:00 52 20 156/62 (93) 95 12/02/18 06:31 52 20 60 12/02/18 06:00 53 20 158/62 (94) 95 12/02/18 05:46 174/74 12/02/18 05:05 61 20 60 12/02/18 05:00 73 21 174/74 (107) 99 12/02/18 04:00 60 12/02/18 04:00 54 12/02/18 04:00 61 20 163/60 (94) 100 12/02/18 04:00 Mechanical Ventilator 12/02/18 03:00 54 16 147/57 (87) 96 12/02/18 02:56 55 20 70 12/02/18 02:00 69 24 170/62 (98) 100 12/02/18 01:20 83 27 70 12/02/18 01:00 73 15 178/77 (110) 100 12/02/18 00:06 158/58 12/02/18 00:00 Mechanical Ventilator 12/02/18 00:00 97.7 60 19 158/58 (91) 98 12/02/18 00:00 54 12/01/18 23:00 70 12/01/18 23:00 54 20 124/53 (76) 96 12/01/18 22:42 54 20 70 12/01/18 22:00 64 21 146/53 (84) 58 12/01/18 21:00 64 21 169/74 (105) 100 12/01/18 21:00 68 22 80 12/01/18 20:00 64 12/01/18 20:00 97.8 67 20 172/72 (105) 99 12/01/18 20:00 Mechanical Ventilator 12/01/18 20:00 80 12/01/18 19:00 64 21 184/77 (112) 98 12/01/18 18:57 65 22 80 12/01/18 18:33 149/55 12/01/18 18:00 54 20 149/55 (86) 100 12/01/18 17:00 69 23 149/63 (91) 100 12/01/18 16:51 78 30 100 12/01/18 16:00 Mechanical Ventilator 12/01/18 16:00 97.7 68 23 157/71 (99) 100 12/01/18 16:00 65 12/01/18 16:00 100 12/01/18 15:00 55 20 153/66 (95) 100 Status: awake Condition: critical HEENT: atraumatic, normocephalic Neck: full ROM Lungs: clear Heart: HR/BP stable, regular Abdomen: non-tender, active bowel sounds Extremities: no C/C/E, cyanosis Decubiti: location Accucheck: 218 Critical Care - Subjective ROS Limited/Unobtainable: No Condition: critical EKG Rhythm: Sinus Rhythm FI02: 60 Vent Support Breath Rate: 20 Vent Support Mode: AC Vent Tidal Volume: 600 Sputum Amount: Scant PEEP: 10.0 PIP: 29 Tube Feeding Amount: 40 I&O: Intake and Output 12/01/18 12/02/18 19:00 07:00 Intake Total 716.666 ml 635 ml Output Total 550 ml 430 ml Balance 166.666 ml 205 ml Intake Free Water 100 ml IV Total 366.666 ml 55 ml Tube Feeding 320 ml 480 ml Other 30 ml Output Urine Total 550 ml 430 ml # Bowel Movements 1 Labs: Laboratory Tests Test 12/02/18 04:47 12/02/18 08:45 White Blood Count 15.2 K/UL (4.8-10.8) H Red Blood Count 3.00 M/UL (4.20-5.40) L Hemoglobin 8.5 G/DL (12.0-16.0) L Hematocrit 26.1 % (37.0-47.0) L Mean Corpuscular Volume 87 FL (80-99) Mean Corpuscular Hemoglobin 28.5 PG (27.0-31.0) Mean Corpuscular Hemoglobin Concent 32.7 G/DL (32.0-36.0) Red Cell Distribution Width 15.5 % (11.6-14.8) H Platelet Count 610 K/UL (150-450) H Mean Platelet Volume 4.9 FL (6.5-10.1) L Neutrophils (%) (Auto) 66.8 % (45.0-75.0) Lymphocytes (%) (Auto) 22.2 % (20.0-45.0) Monocytes (%) (Auto) 5.2 % (1.0-10.0) Eosinophils (%) (Auto) 5.2 % (0.0-3.0) H Basophils (%) (Auto) 0.7 % (0.0-2.0) Sodium Level 148 MMOL/L (136-145) H Potassium Level 3.4 MMOL/L (3.5-5.1) L Chloride Level 113 MMOL/L (98-107) H Carbon Dioxide Level 23 MMOL/L (21-32) Anion Gap 12 mmol/L (5-15) Blood Urea Nitrogen 22 mg/dL (7-18) H Creatinine 1.1 MG/DL (0.55-1.30) Estimat Glomerular Filtration Rate 53.5 mL/min (>60) Glucose Level 99 MG/DL (74-106) Calcium Level 9.0 MG/DL (8.5-10.1) Phosphorus Level 3.5 MG/DL (2.5-4.9) Magnesium Level 2.0 MG/DL (1.8-2.4) Total Bilirubin 0.7 MG/DL (0.2-1.0) Aspartate Amino Transf (AST/SGOT) 61 U/L (15-37) H Alanine Aminotransferase (ALT/SGPT) 60 U/L (12-78) Alkaline Phosphatase 1054 U/L (46-116) H Total Protein 6.8 G/DL (6.4-8.2) Albumin 2.4 G/DL (3.4-5.0) L Globulin 4.4 g/dL Albumin/Globulin Ratio 0.5 (1.0-2.7) L Arterial Blood pH 7.471 (7.350-7.450) Arterial Blood Partial Pressure CO2 28.6 mmHg (35.0-45.0) L Arterial Blood Partial Pressure O2 105.0 mmHg (75.0-100.0) H Arterial Blood HCO3 20.4 mmol/L (22.0-26.0) L Arterial Blood Oxygen Saturation 97.4 % (95-100) Arterial Blood Base Excess -2.5 (-2-2) L Rojas Test Positive Ranjith Arora MD Dec 02, 2018 14:46
--- NOTE | 2018-12-02 14:50 | Cardiac Electrophysiology PN ---
Assessment/Plan Problem List: (1) Sepsis Assessment & Plan: Hemodynamically stable. WBC elevated, but improving- repeat cultures pending. Probable pulmonary source . (2) Bacteremia Assessment & Plan: S epi - on iv abx per ID. Pacer felt to be likely source of infection No evidence for endocarditis by ABBIE 11/27 (3) Pacemaker Assessment & Plan: Pacer pocket site infection, and s epi bacteremia- device and leads removed 11/26. will plan re-implant when ID and pulm status cleared. (4) Acute encephalopathy (5) Acute renal failure (6) Feeding by G-tube (7) Encephalopathy (8) Tracheostomy in place Assessment & Plan: respiratory failure, pneumonia. Remains on high fio2 (9) Aortic dissection, thoracic Assessment & Plan: hx of aortic dissection repair 2017 (10) Hypokalemia Assessment & Plan: supplement (11) Hypernatremia Assessment & Plan: Improved w/ IV d5w. Will give additional hypotonic fluids today Status: stable, progressing Status Narrative Mrs Gillis is a 48 yo woman with hx of thoracic aortic dissection - repair (appx 1 yr ago) , chronic type b dissection, pneumonia, chronic respiratory failure, on vent, s/p g tube and s/p pacemaker placement on 11/01 at [facility] for sick sinus syndrome. She was adm w/ pain and swelling at pacer pocket site, and has s epi bacteremia. Sputum w/ acinetobacter and MRSA Pacemaker has been removed. Rhythm - SR- SB heart rates improving - now 70s at times. WBC is improving. She is hypernatremic and hypokalemic, but these are improving w/ hypotonic fluids and potassium supplement Assessment/Plan Continue iv abx per ID. Continue free water and K supplement today Weaning fi02, as per pulm BP remains elevated. She is on high dose hydralazine and amlodipine. Will start low dose metoprolol and ARB Subjective ROS Limited/Unobtainable: No Subjective Cardiac EP Pt intubated, awake and responsive. Denies abd or cp Objective Last 24 Hour Vital Signs Date Time Temp Pulse Resp B/P (MAP) Pulse Ox O2 Delivery O2 Flow Rate FiO2 12/02/18 13:03 60 20 60 12/02/18 12:17 154/61 12/02/18 12:00 Mechanical Ventilator 12/02/18 12:00 52 12/02/18 11:00 50 20 176/75 (108) 100 12/02/18 10:32 58 22 60 12/02/18 10:00 60 20 175/71 (105) 97 12/02/18 09:00 60 19 178/74 (108) 100 12/02/18 08:59 61 167/119 12/02/18 08:43 68 22 60 12/02/18 08:00 98.3 102 27 167/119 (135) 100 12/02/18 08:00 56 12/02/18 08:00 Mechanical Ventilator 12/02/18 08:00 60 12/02/18 07:00 52 20 156/62 (93) 95 12/02/18 06:31 52 20 60 12/02/18 06:00 53 20 158/62 (94) 95 12/02/18 05:46 174/74 12/02/18 05:05 61 20 60 12/02/18 05:00 73 21 174/74 (107) 99 12/02/18 04:00 60 12/02/18 04:00 54 12/02/18 04:00 61 20 163/60 (94) 100 12/02/18 04:00 Mechanical Ventilator 12/02/18 03:00 54 16 147/57 (87) 96 12/02/18 02:56 55 20 70 12/02/18 02:00 69 24 170/62 (98) 100 12/02/18 01:20 83 27 70 12/02/18 01:00 73 15 178/77 (110) 100 12/02/18 00:06 158/58 12/02/18 00:00 Mechanical Ventilator 12/02/18 00:00 97.7 60 19 158/58 (91) 98 12/02/18 00:00 54 12/01/18 23:00 70 12/01/18 23:00 54 20 124/53 (76) 96 12/01/18 22:42 54 20 70 12/01/18 22:00 64 21 146/53 (84) 58 12/01/18 21:00 64 21 169/74 (105) 100 12/01/18 21:00 68 22 80 12/01/18 20:00 64 12/01/18 20:00 97.8 67 20 172/72 (105) 99 12/01/18 20:00 Mechanical Ventilator 12/01/18 20:00 80 12/01/18 19:00 64 21 184/77 (112) 98 12/01/18 18:57 65 22 80 12/01/18 18:33 149/55 12/01/18 18:00 54 20 149/55 (86) 100 12/01/18 17:00 69 23 149/63 (91) 100 12/01/18 16:51 78 30 100 12/01/18 16:00 Mechanical Ventilator 12/01/18 16:00 97.7 68 23 157/71 (99) 100 12/01/18 16:00 65 12/01/18 16:00 100 12/01/18 15:00 55 20 153/66 (95) 100 General Appearance: WD/WN, on vent EENT: PERRL/EOMI Neck: other - trach/vent Rhythm: NSR Cardiovascular: normal rate, regular rhythm, no gallop/murmur Respiratory/Chest: other - Chest ; L infraclav incision - covered w/ dry dressing. Lungs; scattered rhonchi Abdomen: non tender, soft, other - + gtube Extremities: no swelling Intake and Output 12/01/18 12/02/18 19:00 07:00 Intake Total 716.666 ml 635 ml Output Total 550 ml 430 ml Balance 166.666 ml 205 ml Intake Free Water 100 ml IV Total 366.666 ml 55 ml Tube Feeding 320 ml 480 ml Other 30 ml Output Urine Total 550 ml 430 ml # Bowel Movements 1 Laboratory Tests Test 12/02/18 04:47 12/02/18 08:45 White Blood Count 15.2 K/UL (4.8-10.8) H Red Blood Count 3.00 M/UL (4.20-5.40) L Hemoglobin 8.5 G/DL (12.0-16.0) L Hematocrit 26.1 % (37.0-47.0) L Mean Corpuscular Volume 87 FL (80-99) Mean Corpuscular Hemoglobin 28.5 PG (27.0-31.0) Mean Corpuscular Hemoglobin Concent 32.7 G/DL (32.0-36.0) Red Cell Distribution Width 15.5 % (11.6-14.8) H Platelet Count 610 K/UL (150-450) H Mean Platelet Volume 4.9 FL (6.5-10.1) L Neutrophils (%) (Auto) 66.8 % (45.0-75.0) Lymphocytes (%) (Auto) 22.2 % (20.0-45.0) Monocytes (%) (Auto) 5.2 % (1.0-10.0) Eosinophils (%) (Auto) 5.2 % (0.0-3.0) H Basophils (%) (Auto) 0.7 % (0.0-2.0) Sodium Level 148 MMOL/L (136-145) H Potassium Level 3.4 MMOL/L (3.5-5.1) L Chloride Level 113 MMOL/L (98-107) H Carbon Dioxide Level 23 MMOL/L (21-32) Anion Gap 12 mmol/L (5-15) Blood Urea Nitrogen 22 mg/dL (7-18) H Creatinine 1.1 MG/DL (0.55-1.30) Estimat Glomerular Filtration Rate 53.5 mL/min (>60) Glucose Level 99 MG/DL (74-106) Calcium Level 9.0 MG/DL (8.5-10.1) Phosphorus Level 3.5 MG/DL (2.5-4.9) Magnesium Level 2.0 MG/DL (1.8-2.4) Total Bilirubin 0.7 MG/DL (0.2-1.0) Aspartate Amino Transf (AST/SGOT) 61 U/L (15-37) H Alanine Aminotransferase (ALT/SGPT) 60 U/L (12-78) Alkaline Phosphatase 1054 U/L (46-116) H Total Protein 6.8 G/DL (6.4-8.2) Albumin 2.4 G/DL (3.4-5.0) L Globulin 4.4 g/dL Albumin/Globulin Ratio 0.5 (1.0-2.7) L Arterial Blood pH 7.471 (7.350-7.450) Arterial Blood Partial Pressure CO2 28.6 mmHg (35.0-45.0) L Arterial Blood Partial Pressure O2 105.0 mmHg (75.0-100.0) H Arterial Blood HCO3 20.4 mmol/L (22.0-26.0) L Arterial Blood Oxygen Saturation 97.4 % (95-100) Arterial Blood Base Excess -2.5 (-2-2) L Rojas Test Positive Lani Lyle MD Dec 02, 2018 14:50
[2018-12-02] MEDS ORDERED: NS 275ml ONE (14:51)
[2018-12-02] MEDS ORDERED: D5W 550ml IV ONE (14:51)
[2018-12-02] MEDS ORDERED: Acetaminophen 650mg/20.3ml GT PRN ×2 (15:00→19:42)
[2018-12-02] MEDS ORDERED: D5W 275ml ONE (15:13)
--- NOTE | 2018-12-02 16:32 | Hematology/Onc Progress Note ---
Assessment/Plan Assessment/Plan # Anemia of chronic disease due to underlying chronic medical issues, multifactorial --> Anemia workup has been reviewed, cw acd --> No evidence of hemolysis is noted, peripheral smear has been reviewed. --> Hgb goal >7. Transfuse prn. --> Epogen or iron at this time is not particularly indicated --> Medications have been reviewed --> low threshold for gi evaluation in case has occult + --> hgb 7.1-->7.8-->8.9->9.2-->8.5 # Leukocytosis, recurrent- increased, now improving --> PPM site (pocket) infection (redness and pain, bacteremia) and likely pocket abscess- no vegetation seen on ABBIE --> is s'p pm removal and also pocket infection is better --> per cards recs in re to tach/davis --> wbc 15-->19-->17-->15 # Thrombocytois is likely reactive process, is s/p infection --> plt trend 610k # Acute hypoxic respiratory failure s/p intubation 11/23- ?ARDS --> on vent/trach # Gram positive bacteremia- real bacteremia- 2ry to above and probable PNA --> per id care # JAVIER initially >2 --> now improved with D5w # Dypshagia s/p peg # thoracic aortic dissection s/p repair early 2017 # [place] resident # Dvt ppx scds The timing of this note does not necessarily reflect the time of the patient was seen. Greatly appreciate consultation. Subjective HEENT: Denies: no symptoms, eye pain, blurred vision, tearing, double vision, ear pain, ear discharge, nose pain, nose congestion, throat pain, throat swelling, mouth pain, mouth swelling, other Cardiovascular: Denies: no symptoms, chest pain, edema, irregular heart rate, lightheadedness, palpitations, syncope, other Respiratory: Denies: no symptoms, cough, shortness of breath, SOB with excertion, SOB at rest, sputum, wheezing, other Gastrointestinal/Abdominal: Denies: no symptoms, abdomen distended, abdominal pain, black stools, tarry stools, blood in stool, constipated, diarrhea, difficulty swallowing, nausea, poor appetite, poor fluid intake, rectal bleeding , vomiting, other Genitourinary: Denies: no symptoms, burning, discharge, frequency, flank pain, hematuria, incontinence, pain, urgency, other Neurologic/Psychiatric: Denies: no symptoms, anxiety, depressed, emotional problems, headache, numbness, paresthesia, pre-existing deficit, seizure, tingling, tremors, weakness, other Endocrine: Denies: no symptoms, excessive sweating, flushing, intolerance to cold, intolerance to heat, increased hunger, increased thirst, increased urine, unexplained weight gain, unexplained weight loss, other Allergies: Coded Allergies: No Known Allergies (Unverified , 10/10/17) Subjective 11/27: PRBC was given yest, no events, seen by cards, no bleeding 11/28: laying in bed, nonverbal, agitated, pulling on trach 11/29: gtube feeds per rd, no bleeding or chills noted, in icu 11/30: no events to report, no bleeding 12/01: labs reviewe,d on trach/vent in icu, no changes per rn 12/02: intubated, is awake and responsive, no bleeding or night sweats reported Objective Objective Current Medications Medications (Trade) Dose Ordered Sig/Penny Route PRN Reason Start Time Stop Time Status Last Admin Dose Admin Acetaminophen (Tylenol) 650 mg Q4H PRN GT Mild Pain/Temp > 100.5 12/02/18 15:00 12/19/18 13:59 Acetaminophen/ Codeine Phosphate (Tylenol #3) 1 tab Q6H PRN GT Moderate Pain (Pain Scale 4-6) 12/02/18 13:00 12/10/18 12:59 Amlodipine Besylate (Norvasc) 10 mg DAILY GT 11/24/18 09:00 12/19/18 08:59 12/02/18 08:59 Diphenhydramine HCl (Benadryl) 25 mg Q6H PRN IVP Itching 11/23/18 14:00 12/21/18 13:59 12/01/18 18:33 Haloperidol Lactate (Haldol) 5 mg Q6H PRN IM Agitation 11/24/18 00:30 12/24/18 00:29 11/30/18 23:18 Heparin Sodium (Porcine) (Heparin 5000 units/ml) 5,000 units EVERY 12 HOURS SUBQ 11/23/18 21:00 12/19/18 08:59 12/02/18 09:04 Hydralazine HCl (Apresoline) 100 mg Q6HR GT 12/01/18 00:00 12/31/18 00:00 12/02/18 12:17 Lansoprazole (Prevacid) 30 mg DAILY GT 11/30/18 09:00 12/30/18 08:59 12/02/18 09:00 Lorazepam (Ativan 2mg/ml 1ml) 1 mg Q4H PRN IV For Anxiety 12/01/18 12:30 12/08/18 12:29 12/02/18 14:56 Losartan Potassium (Cozaar) 25 mg DAILY GT 12/03/18 09:00 01/02/19 08:59 Meropenem 1 gm/ Sodium Chloride 55 ml @ 110 mls/hr Q12HR IVPB 11/29/18 14:00 12/04/18 13:59 12/02/18 08:58 Metoprolol Tartrate (Lopressor) 12.5 mg Q12HR GT 12/02/18 21:00 01/01/19 20:59 Ondansetron HCl (Zofran) 4 mg Q8H PRN IM Nausea & Vomiting 11/23/18 14:00 12/19/18 13:59 Polyethylene Glycol (Miralax) 17 gm DAILY GT 11/28/18 21:45 12/28/18 21:44 11/28/18 21:58 Thiamine HCl (Vitamin B1) 100 mg DAILY GT 11/24/18 09:00 12/19/18 08:59 12/02/18 08:59 Vancomycin HCl (Vanco rx to dose) 1 ea DAILY PRN MISC Per rx protocol 11/25/18 07:45 12/25/18 07:44 Vancomycin HCl 750 mg/Sodium Chloride 275 ml @ 183.333 mls/hr Q24H IVPB 12/02/18 08:00 12/07/18 07:59 12/02/18 08:58 Zinc Oxide (Zinc Oxide) 1 applic DAILY TOPIC 11/29/18 15:30 12/29/18 15:29 12/02/18 09:00 Last 24 Hour Vital Signs Date Time Temp Pulse Resp B/P (MAP) Pulse Ox O2 Delivery O2 Flow Rate FiO2 12/02/18 15:00 65 21 170/71 (104) 100 12/02/18 14:47 76 27 50 12/02/18 14:00 73 24 171/71 (104) 100 12/02/18 13:45 72 22 169/73 (105) 98 12/02/18 13:03 60 20 60 12/02/18 13:00 55 20 109/46 (67) 96 12/02/18 12:17 154/61 12/02/18 12:00 60 12/02/18 12:00 Mechanical Ventilator 12/02/18 12:00 52 12/02/18 12:00 98.5 102 27 167/119 (135) 100 12/02/18 11:00 50 20 176/75 (108) 100 12/02/18 10:32 58 22 60 12/02/18 10:00 60 20 175/71 (105) 97 12/02/18 09:00 60 19 178/74 (108) 100 12/02/18 08:59 61 167/119 12/02/18 08:43 68 22 60 12/02/18 08:00 98.3 102 27 167/119 (135) 100 12/02/18 08:00 56 12/02/18 08:00 Mechanical Ventilator 12/02/18 08:00 60 12/02/18 07:00 52 20 156/62 (93) 95 12/02/18 06:31 52 20 60 12/02/18 06:00 53 20 158/62 (94) 95 12/02/18 05:46 174/74 12/02/18 05:05 61 20 60 12/02/18 05:00 73 21 174/74 (107) 99 12/02/18 04:00 60 12/02/18 04:00 54 12/02/18 04:00 61 20 163/60 (94) 100 12/02/18 04:00 Mechanical Ventilator 12/02/18 03:00 54 16 147/57 (87) 96 12/02/18 02:56 55 20 70 12/02/18 02:00 69 24 170/62 (98) 100 12/02/18 01:20 83 27 70 12/02/18 01:00 73 15 178/77 (110) 100 12/02/18 00:06 158/58 12/02/18 00:00 Mechanical Ventilator 12/02/18 00:00 97.7 60 19 158/58 (91) 98 12/02/18 00:00 54 12/01/18 23:00 70 12/01/18 23:00 54 20 124/53 (76) 96 12/01/18 22:42 54 20 70 12/01/18 22:00 64 21 146/53 (84) 58 12/01/18 21:00 64 21 169/74 (105) 100 12/01/18 21:00 68 22 80 12/01/18 20:00 64 12/01/18 20:00 97.8 67 20 172/72 (105) 99 12/01/18 20:00 Mechanical Ventilator 12/01/18 20:00 80 12/01/18 19:00 64 21 184/77 (112) 98 12/01/18 18:57 65 22 80 12/01/18 18:33 149/55 12/01/18 18:00 54 20 149/55 (86) 100 12/01/18 17:00 69 23 149/63 (91) 100 12/01/18 16:51 78 30 100 12/01/18 16:00 Mechanical Ventilator 12/01/18 16:00 97.7 68 23 157/71 (99) 100 12/01/18 16:00 65 12/01/18 16:00 100 12/01/18 15:00 55 20 153/66 (95) 100 12/01/18 14:30 56 20 100 12/01/18 14:00 69 19 151/77 (101) 100 12/01/18 13:06 57 20 100 12/01/18 13:00 55 20 154/64 (94) 100 12/01/18 12:45 166/74 12/01/18 12:00 97.7 68 23 166/74 (104) 87 12/01/18 12:00 100 12/01/18 12:00 60 12/01/18 12:00 Mechanical Ventilator 12/01/18 11:06 71 22 100 12/01/18 11:00 76 18 177/78 (111) 100 12/01/18 10:00 65 20 141/77 (98) 100 12/01/18 09:00 56 20 164/67 (99) 100 12/01/18 08:41 55 27 100 12/01/18 08:07 81 178/89 12/01/18 08:00 97.6 66 26 178/80 (112) 100 12/01/18 08:00 100 12/01/18 08:00 Mechanical Ventilator 12/01/18 08:00 97 12/01/18 07:25 53 18 100 12/01/18 07:00 51 20 155/70 (98) 100 12/01/18 06:00 54 20 157/67 (97) 100 12/01/18 05:29 165/75 12/01/18 05:10 62 20 40 12/01/18 05:00 60 20 161/73 (102) 100 12/01/18 04:00 97.3 74 14 157/80 (105) 100 12/01/18 04:00 Mechanical Ventilator 12/01/18 04:00 40 12/01/18 03:15 81 25 40 12/01/18 03:02 66 12/01/18 03:00 77 17 159/96 (117) 100 12/01/18 02:00 74 15 150/86 (107) 100 12/01/18 01:10 60 20 40 12/01/18 01:00 75 17 152/95 (114) 100 12/01/18 00:00 40 12/01/18 00:00 Mechanical Ventilator 12/01/18 00:00 97.4 73 16 157/89 (111) 100 11/30/18 23:42 74 22 40 11/30/18 23:30 65 22 159/66 (97) 100 11/30/18 23:19 83 11/30/18 23:19 77 11/30/18 23:18 192/97 11/30/18 23:00 81 26 192/97 (128) 100 11/30/18 22:00 81 25 188/111 (136) 100 11/30/18 21:50 63 31 40 11/30/18 21:00 81 22 177/84 (115) 100 11/30/18 21:00 79 26 96 11/30/18 20:00 Mechanical Ventilator 11/30/18 20:00 97.4 84 27 194/103 (133) 95 11/30/18 20:00 40 11/30/18 20:00 78 11/30/18 19:16 85 30 40 11/30/18 19:00 68 25 159/71 (100) 96 11/30/18 18:30 77 21 180/71 (107) 94 11/30/18 18:00 75 25 173/72 (105) 94 11/30/18 18:00 70 25 72/71 (71) 95 11/30/18 17:30 74 23 171/71 (104) 96 11/30/18 17:21 169/67 11/30/18 17:00 73 28 173/76 (108) Intake and Output 12/01/18 12/02/18 19:00 07:00 Intake Total 716.666 ml 635 ml Output Total 550 ml 430 ml Balance 166.666 ml 205 ml Intake Free Water 100 ml IV Total 366.666 ml 55 ml Tube Feeding 320 ml 480 ml Other 30 ml Output Urine Total 550 ml 430 ml # Bowel Movements 1 Labs Test 11/30/18 03:45 11/30/18 21:50 12/01/18 06:55 12/02/18 04:47 White Blood Count 17.6 K/UL (4.8-10.8) 15.0 K/UL (4.8-10.8) 15.2 K/UL (4.8-10.8) Red Blood Count 3.23 M/UL (4.20-5.40) 2.94 M/UL (4.20-5.40) 3.00 M/UL (4.20-5.40) Hemoglobin 9.2 G/DL (12.0-16.0) 8.2 G/DL (12.0-16.0) 8.5 G/DL (12.0-16.0) Hematocrit 29.2 % (37.0-47.0) 25.4 % (37.0-47.0) 26.1 % (37.0-47.0) Mean Corpuscular Volume 90 FL (80-99) 86 FL (80-99) 87 FL (80-99) Mean Corpuscular Hemoglobin 28.6 PG (27.0-31.0) 27.8 PG (27.0-31.0) 28.5 PG (27.0-31.0) Mean Corpuscular Hemoglobin Concent 31.7 G/DL (32.0-36.0) 32.2 G/DL (32.0-36.0) 32.7 G/DL (32.0-36.0) Red Cell Distribution Width 15.3 % (11.6-14.8) 15.4 % (11.6-14.8) 15.5 % (11.6-14.8) Platelet Count 409 K/UL (150-450) 524 K/UL (150-450) 610 K/UL (150-450) Mean Platelet Volume 5.2 FL (6.5-10.1) 4.8 FL (6.5-10.1) 4.9 FL (6.5-10.1) Neutrophils (%) (Auto) 78.4 % (45.0-75.0) 72.5 % (45.0-75.0) 66.8 % (45.0-75.0) Lymphocytes (%) (Auto) 12.4 % (20.0-45.0) 19.2 % (20.0-45.0) 22.2 % (20.0-45.0) Monocytes (%) (Auto) 5.6 % (1.0-10.0) 4.0 % (1.0-10.0) 5.2 % (1.0-10.0) Eosinophils (%) (Auto) 2.5 % (0.0-3.0) 3.8 % (0.0-3.0) 5.2 % (0.0-3.0) Basophils (%) (Auto) 1.1 % (0.0-2.0) 0.4 % (0.0-2.0) 0.7 % (0.0-2.0) Erythrocyte Sedimentation Rate 109 MM/HR (0-20) Sodium Level 148 MMOL/L (136-145) 151 MMOL/L (136-145) 148 MMOL/L (136-145) Potassium Level 3.7 MMOL/L (3.5-5.1) 3.3 MMOL/L (3.5-5.1) 3.4 MMOL/L (3.5-5.1) Chloride Level 113 MMOL/L (98-107) 115 MMOL/L (98-107) 113 MMOL/L (98-107) Carbon Dioxide Level 19 MMOL/L (21-32) 25 MMOL/L (21-32) 23 MMOL/L (21-32) Anion Gap 17 mmol/L (5-15) 11 mmol/L (5-15) 12 mmol/L (5-15) Blood Urea Nitrogen 36 mg/dL (7-18) 25 mg/dL (7-18) 22 mg/dL (7-18) Creatinine 1.5 MG/DL (0.55-1.30) 1.1 MG/DL (0.55-1.30) 1.1 MG/DL (0.55-1.30) Estimat Glomerular Filtration Rate 37.4 mL/min (>60) 53.5 mL/min (>60) 53.5 mL/min (>60) Glucose Level 97 MG/DL (74-106) 97 MG/DL (74-106) 99 MG/DL (74-106) Calcium Level 8.9 MG/DL (8.5-10.1) 9.0 MG/DL (8.5-10.1) 9.0 MG/DL (8.5-10.1) Phosphorus Level 2.7 MG/DL (2.5-4.9) 3.1 MG/DL (2.5-4.9) 3.5 MG/DL (2.5-4.9) Magnesium Level 2.0 MG/DL (1.8-2.4) 2.0 MG/DL (1.8-2.4) 2.0 MG/DL (1.8-2.4) Total Bilirubin 0.7 MG/DL (0.2-1.0) 0.6 MG/DL (0.2-1.0) 0.7 MG/DL (0.2-1.0) Aspartate Amino Transf (AST/SGOT) 43 U/L (15-37) 30 U/L (15-37) 61 U/L (15-37) Alanine Aminotransferase (ALT/SGPT) 46 U/L (12-78) 45 U/L (12-78) 60 U/L (12-78) Alkaline Phosphatase 938 U/L (46-116) 997 U/L (46-116) 1054 U/L (46-116) C-Reactive Protein, Quantitative 10.1 mg/dL (0.00-0.90) Total Protein 7.5 G/DL (6.4-8.2) 6.7 G/DL (6.4-8.2) 6.8 G/DL (6.4-8.2) Albumin 2.5 G/DL (3.4-5.0) 2.3 G/DL (3.4-5.0) 2.4 G/DL (3.4-5.0) Globulin 5.0 g/dL 4.4 g/dL 4.4 g/dL Albumin/Globulin Ratio 0.5 (1.0-2.7) 0.5 (1.0-2.7) 0.5 (1.0-2.7) Arterial Blood pH 7.486 (7.350-7.450) Arterial Blood Partial Pressure CO2 28.7 mmHg (35.0-45.0) Arterial Blood Partial Pressure O2 175.2 mmHg (75.0-100.0) Arterial Blood HCO3 21.2 mmol/L (22.0-26.0) Arterial Blood Oxygen Saturation 98.7 % (95-100) Arterial Blood Base Excess -1.2 (-2-2) Rojas Test Positive Vancomycin Level Trough 16.5 ug/mL (5.0-12.0) Test 12/02/18 08:45 Arterial Blood pH 7.471 (7.350-7.450) Arterial Blood Partial Pressure CO2 28.6 mmHg (35.0-45.0) Arterial Blood Partial Pressure O2 105.0 mmHg (75.0-100.0) Arterial Blood HCO3 20.4 mmol/L (22.0-26.0) Arterial Blood Oxygen Saturation 97.4 % (95-100) Arterial Blood Base Excess -2.5 (-2-2) Rojas Test Positive Height (Feet): 5 Height (Inches): 5.00 Weight (Pounds): 143 Objective Gen: on vent, altered HEENT Sclerae were white. ENT ++trach/vent NECK: Supple. No lymphadenopathy. LUNGS: Clear. HEART: PMI was in fifth left intercostal space in midclavicular line. ABDOMEN: Soft, nontender without organomegaly. There were no masses ++ peg EXTREMITIES: No cyanosi Evan Muhammad MD Dec 02, 2018 16:32
[2018-12-02] MEDS ORDERED: DiphenhydrAMINE 50mg/ml Inj IVP PRN (19:43)
[2018-12-02] MEDS ORDERED: Haloperidol 5mg/ml Inj IM PRN (19:43)
[2018-12-02] MEDS: Metoprolol Tartrate 12.5mg TAB GT SCH (20:19)
[2018-12-02] MEDS ORDERED: Metoprolol Tartrate 12.5mg TAB GT SCH (21:00)
[2018-12-03] VITALS: BP 162/79
[2018-12-03] MEDS: HydrALAZINE 50mg tab GT SCH ×5 (00:30→23:05)
[2018-12-03] MEDS: LORazepam Inj 2mg/ml 1ml IV PRN ×4 (00:33→20:18)
[2018-12-03 05:00] VITALS: BP 159/78
[2018-12-03 06:04] LABS: ANION GAP 11 mmol/L (5-15); BLOOD UREA NITROGEN 21 mg/dL (7-18); CALCIUM 9.3 MG/DL (8.5-10.1); CARBON DIOXIDE 21 MMOL/L (21-32); CHLORIDE 112 MMOL/L (98-107); CREATININE 1.2 MG/DL (0.55-1.30); POTASSIUM 3.9 MMOL/L (3.5-5.1); SODIUM 144 MMOL/L (136-145)
[2018-12-03] MEDS: Vancomycin 750 MG in NS 275 ML IVPB SCH (07:48)
[2018-12-03 08:00] VITALS: BP 155/74
[2018-12-03] MEDS: Tylenol #3 tab (300mg/30mg) GT PRN ×2 (08:33→14:48)
[2018-12-03] MEDS: Thiamine 100mg tab GT SCH (08:33)
[2018-12-03] MEDS: Metoprolol Tartrate 12.5mg TAB GT SCH ×2 (08:35→20:37)
[2018-12-03] MEDS: Losartan 25mg tab GT SCH (08:36)
[2018-12-03] MEDS: Miralax 17gm pkt GT SCH (08:36)
[2018-12-03] MEDS: Heparin 5000 units/ml inj SUBQ SCH ×2 (08:38→20:23)
[2018-12-03] MEDS: Meropenem 1 GM in NS 55 ML IVPB SCH ×2 (08:54→20:21)
[2018-12-03] MEDS ORDERED: Losartan 25mg tab GT SCH (09:00)
--- NOTE | 2018-12-03 10:11 | Pulmonolgy Critical Care Note ---
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, 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 - Objective Last 24 Hour Vital Signs Date Time Temp Pulse Resp B/P (MAP) Pulse Ox O2 Delivery O2 Flow Rate FiO2 12/03/18 09:03 62 22 40 12/03/18 08:36 158/84 12/03/18 08:35 61 12/03/18 08:35 61 158/84 12/03/18 08:00 Mechanical Ventilator 12/03/18 08:00 98.6 64 20 155/74 (101) 97 12/03/18 08:00 50 12/03/18 07:20 66 24 40 12/03/18 06:21 159/78 12/03/18 05:08 67 27 40 12/03/18 05:00 97.7 67 20 159/78 (105) 96 12/03/18 04:00 Mechanical Ventilator 12/03/18 04:00 50 12/03/18 03:36 58 12/03/18 03:30 58 20 40 12/03/18 01:12 59 20 40 12/03/18 00:30 162/79 12/03/18 00:00 Mechanical Ventilator 12/03/18 00:00 50 12/03/18 00:00 98.0 64 20 162/79 (106) 96 12/02/18 23:32 68 12/02/18 23:10 61 23 40 12/02/18 20:49 70 24 40 12/02/18 20:21 64 12/02/18 20:19 64 149/70 12/02/18 20:00 98.2 64 20 149/70 (96) 96 12/02/18 20:00 50 12/02/18 20:00 Mechanical Ventilator 12/02/18 18:51 66 23 40 12/02/18 18:00 77 22 187/81 (116) 97 12/02/18 17:47 185/75 12/02/18 17:14 64 21 40 12/02/18 17:00 64 24 185/75 (111) 100 12/02/18 16:00 97.9 66 21 156/63 (94) 96 12/02/18 16:00 50 12/02/18 16:00 68 12/02/18 16:00 Mechanical Ventilator 12/02/18 15:00 65 21 170/71 (104) 100 12/02/18 14:47 76 27 50 12/02/18 14:00 73 24 171/71 (104) 100 12/02/18 13:45 72 22 169/73 (105) 98 12/02/18 13:03 60 20 60 12/02/18 13:00 55 20 109/46 (67) 96 12/02/18 12:17 154/61 12/02/18 12:00 60 12/02/18 12:00 Mechanical Ventilator 12/02/18 12:00 52 12/02/18 12:00 98.5 102 27 167/119 (135) 100 12/02/18 11:00 50 20 176/75 (108) 100 12/02/18 10:32 58 22 60 Status: awake Condition: critical Neck: full ROM Lungs: chest wall tender Heart: HR/BP stable Abdomen: soft, active bowel sounds, feeding tube Extremities: edema Accucheck: 218 Critical Care - Subjective Condition: critical EKG Rhythm: Sinus Rhythm FI02: 40 Vent Support Breath Rate: 20 Vent Support Mode: AC Vent Tidal Volume: 600 Sputum Amount: Scant PEEP: 8.0 PIP: 26 Tube Feeding Amount: 40 I&O: Intake and Output 12/02/18 12/03/18 19:00 07:00 Intake Total 1160.000 ml 545 ml Output Total 448 ml 700 ml Balance 712.000 ml -155 ml Intake Free Water 100 ml 50 ml IV Total 580.000 ml 55 ml Tube Feeding 480 ml 440 ml Output Urine Total 448 ml 700 ml # Bowel Movements 4 Labs: Laboratory Tests Test 12/03/18 04:00 Sodium Level 144 MMOL/L (136-145) Potassium Level 3.9 MMOL/L (3.5-5.1) Chloride Level 112 MMOL/L (98-107) H Carbon Dioxide Level 21 MMOL/L (21-32) Anion Gap 11 mmol/L (5-15) Blood Urea Nitrogen 21 mg/dL (7-18) H Creatinine 1.2 MG/DL (0.55-1.30) Estimat Glomerular Filtration Rate 48.4 mL/min (>60) Glucose Level 102 MG/DL (74-106) Calcium Level 9.3 MG/DL (8.5-10.1) Pro-B-Type Natriuretic Peptide 04784 pg/mL (0-125) H Ranjith Arora MD Dec 03, 2018 10:11
[2018-12-03] MEDS: Zinc Oxide Oint 2oz TOPIC SCH (10:13)
--- NOTE | 2018-12-03 10:33 | General Progress Note ---
Assessment/Plan Problem List: (1) Ascites ICD Codes: R18.8 - Other ascites SNOMED: 573623610 (2) Pleural effusion ICD Codes: J90 - Pleural effusion, not elsewhere classified SNOMED: 01402230 (3) Elevated alkaline phosphatase level ICD Codes: R74.8 - Abnormal levels of other serum enzymes SNOMED: 395369266 (4) S/P aortic dissection repair ICD Codes: Z98.890 - Other specified postprocedural states SNOMED: 407163510, 164601896 (5) Pacemaker ICD Codes: Z95.0 - Presence of cardiac pacemaker SNOMED: 002785931 (6) Bacteremia ICD Codes: R78.81 - Bacteremia SNOMED: 6021470 (7) Chronic respiratory failure ICD Codes: J96.10 - Chronic respiratory failure, unspecified whether with hypoxia or hypercapnia SNOMED: 71789563 (8) Feeding by G-tube ICD Codes: Z93.1 - Gastrostomy status SNOMED: 039133927, 416685365 (9) Tracheostomy in place ICD Codes: Z93.0 - Tracheostomy status SNOMED: 453776883 (10) Ventilator dependence ICD Codes: Z99.11 - Dependence on respirator [ventilator] status SNOMED: 819753148 (11) Anemia ICD Codes: D64.9 - Anemia, unspecified SNOMED: 080877675 Qualifiers: Qualified Codes: D64.9 - Anemia, unspecified Status: stable, progressing Assessment/Plan: GTF fu labs consider paracentesis abd us reviewed abx per ID hematology in put appreciated Subjective ROS Limited/Unobtainable: No Allergies: Coded Allergies: No Known Allergies (Unverified , 10/10/17) Objective Last 24 Hour Vital Signs Date Time Temp Pulse Resp B/P (MAP) Pulse Ox O2 Delivery O2 Flow Rate FiO2 12/03/18 09:03 62 22 40 12/03/18 08:36 158/84 12/03/18 08:35 61 12/03/18 08:35 61 158/84 12/03/18 08:00 Mechanical Ventilator 12/03/18 08:00 98.6 64 20 155/74 (101) 97 12/03/18 08:00 50 12/03/18 07:20 66 24 40 12/03/18 06:21 159/78 12/03/18 05:08 67 27 40 10/21/19 05:00 97.7 67 20 159/78 (105) 96 12/03/18 04:00 Mechanical Ventilator 12/03/18 04:00 50 12/03/18 03:36 58 12/03/18 03:30 58 20 40 12/03/18 01:12 59 20 40 12/03/18 00:30 162/79 12/03/18 00:00 Mechanical Ventilator 12/03/18 00:00 50 12/03/18 00:00 98.0 64 20 162/79 (106) 96 12/02/18 23:32 68 12/02/18 23:10 61 23 40 12/02/18 20:49 70 24 40 12/02/18 20:21 64 12/02/18 20:19 64 149/70 12/02/18 20:00 98.2 64 20 149/70 (96) 96 12/02/18 20:00 50 12/02/18 20:00 Mechanical Ventilator 12/02/18 18:51 66 23 40 12/02/18 18:00 77 22 187/81 (116) 97 12/02/18 17:47 185/75 12/02/18 17:14 64 21 40 12/02/18 17:00 64 24 185/75 (111) 100 12/02/18 16:00 97.9 66 21 156/63 (94) 96 12/02/18 16:00 50 12/02/18 16:00 68 12/02/18 16:00 Mechanical Ventilator 12/02/18 15:00 65 21 170/71 (104) 100 12/02/18 14:47 76 27 50 12/02/18 14:00 73 24 171/71 (104) 100 12/02/18 13:45 72 22 169/73 (105) 98 12/02/18 13:03 60 20 60 12/02/18 13:00 55 20 109/46 (67) 96 12/02/18 12:17 154/61 12/02/18 12:00 60 12/02/18 12:00 Mechanical Ventilator 12/02/18 12:00 52 12/02/18 12:00 98.5 102 27 167/119 (135) 100 12/02/18 11:00 50 20 176/75 (108) 100 12/02/18 10:32 58 22 60 Intake and Output 12/02/18 12/03/18 19:00 07:00 Intake Total 1160.000 ml 545 ml Output Total 448 ml 700 ml Balance 712.000 ml -155 ml Intake Free Water 100 ml 50 ml IV Total 580.000 ml 55 ml Tube Feeding 480 ml 440 ml Output Urine Total 448 ml 700 ml # Bowel Movements 4 Laboratory Tests 12/03/18 04:00: Sodium Level 144, Potassium Level 3.9, Chloride Level 112H, Carbon Dioxide Level 21, Anion Gap 11, Blood Urea Nitrogen 21H, Creatinine 1.2, Estimat Glomerular Filtration Rate 48.4, Glucose Level 102, Calcium Level 9.3, Pro-B- Type Natriuretic Peptide 11556O Height (Feet): 5 Height (Inches): 5.00 Weight (Pounds): 181 General Appearance: lethargic EENT: normal ENT inspection Neck: supple Cardiovascular: normal rate Respiratory/Chest: decreased breath sounds Abdomen: normal bowel sounds, non tender, soft, other - GT in place Extremities: non-tender Inder Mccauley MD Dec 03, 2018 10:33
[2018-12-03 12:00] VITALS: BP 138/76
--- NOTE | 2018-12-03 12:38 | Infectious Diseases Prog Note ---
Assessment/Plan Assessment/Plan Assessment: Acute on chronic hypoxic respiratory failure - ?ARDS Fever;SP Leukocytosis, recurrent- increased, now improving -u.a wbc 5-10, nit neg, leuk +1 PPM site (pocket) infection (redness and pain, bacteremia) and likely pocket abscess- no vegetation seen on ABBIE -11/27 SP ABBIE: no evidence for vegetation on any of the valves -11/26 SP PPM removal: -OR findings:The fibrous capsule enclosing the generator was then opened and there was a [id number] amount of yellowish fluid drainage. The generator was then removed.Atrial and ventricular leads were detached. The necrotic tissue of the pocket was then removed and the pocket was flushed with an antibiotic solution. -Capsule, wound tissue and lead tip cx: NTD -2d echo: no vegetation seen -US chest: 4.6 x 3.4 x 0.9 cm hypoechoic/anechoic area overlying left chest pacemaker power pack. This could represent either a discrete fluid collection or a focal area of very edematous tissue. Infected fluid pocket also possible. Gram positive bacteremia- real bacteremia- 2ry to above -11/18 Bcx 3/4 S. epi; 11/20 Bcx neg; 11/24 Bcx NTD; 11/27 Bcx NTD Probable PNA -12/02 CXR: Bilateral airspace opacities, worse in the right lung, has improved since the prior study. -11/28 sp cx: PsA (arnett S), ABC (I Ceftriaxone; otherwise negative) -11/26 CXR: Slightly improved aeration of the right lung base. Otherwise mostly stable bilateral interstitial and airspace disease -CXR: etrocardiac consolidation, possibly pneumonia. Right basilar atelectasis -sp cx MRSA, ABC (I Ceftriaxone; otherwise S) Recent aspiration PNA and UTI (late September 2018) -u/a wbc 5-10, nit +, leuk +1; ucx >100k Enterobacter aerogenes (R ancef, nitro; otherwise S) -sp cx MRSA, ABC (I Ceftriaxone); repeat sp cx 11/28 p HTN anxiety chronic resp failure s/p trach s/p PEG thoracic aortic dissection s/p repair early 2017 [place] resident Plan: -Continue empiric IV Vancomycin #16 for S. epi bacteremia, PPM site infection and abscess and PNA - guidelines favor treatment for endocarditis in the setting of +pocket infection and bacteremia with Staph; expected end date 12/31/18; weekly CBC, BMP , Vanco through -in terms of device re-implantation, will await patient afebrile for at least 48hrs, leukocytosis resolved and repeat Bcx 11/27 (after device removal) negative in 72 hours -Continue Meropenem #5/7 (abx d #14) for PNA given worsening wbc -11/29 SP Zosyn #11 -f.u cx -Monitor CBC/CMP, temperatures -Cards f/u -f/u repeat Bcx x2, OR cultures -Cdiff if diarrhea -f/u sp cx -If wbc remains elevated and when Cr better improved, will do CT chest abd/p w/ Thank you for this consultation. Will continue to follow along with you. Subjective Allergies: Coded Allergies: No Known Allergies (Unverified , 10/10/17) Subjective afebrile wbc improved repeat BCx NTD Fio2 down to 40% transferred out of ICU matos to SDU Objective Vital Signs Last 24 Hour Vital Signs Date Time Temp Pulse Resp B/P (MAP) Pulse Ox O2 Delivery O2 Flow Rate FiO2 12/03/18 10:54 55 20 40 12/03/18 09:03 62 22 40 12/03/18 08:36 158/84 12/03/18 08:35 61 12/03/18 08:35 61 158/84 12/03/18 08:00 Mechanical Ventilator 12/03/18 08:00 63 12/03/18 08:00 98.6 64 20 155/74 (101) 97 12/03/18 08:00 50 12/03/18 07:20 66 24 40 12/03/18 06:21 159/78 12/03/18 05:08 67 27 40 12/03/18 05:00 97.7 67 20 159/78 (105) 96 12/03/18 04:00 Mechanical Ventilator 12/03/18 04:00 50 12/03/18 03:36 58 12/03/18 03:30 58 20 40 12/03/18 01:12 59 20 40 12/03/18 00:30 162/79 12/03/18 00:00 Mechanical Ventilator 12/03/18 00:00 50 12/03/18 00:00 98.0 64 20 162/79 (106) 96 12/02/18 23:32 68 12/02/18 23:10 61 23 40 12/02/18 20:49 70 24 40 12/02/18 20:21 64 12/02/18 20:19 64 149/70 12/02/18 20:00 98.2 64 20 149/70 (96) 96 12/02/18 20:00 50 12/02/18 20:00 Mechanical Ventilator 12/02/18 18:51 66 23 40 12/02/18 18:00 77 22 187/81 (116) 97 12/02/18 17:47 185/75 12/02/18 17:14 64 21 40 12/02/18 17:00 64 24 185/75 (111) 100 12/02/18 16:00 97.9 66 21 156/63 (94) 96 12/02/18 16:00 50 12/02/18 16:00 68 12/02/18 16:00 Mechanical Ventilator 12/02/18 15:00 65 21 170/71 (104) 100 12/02/18 14:47 76 27 50 12/02/18 14:00 73 24 171/71 (104) 100 12/02/18 13:45 72 22 169/73 (105) 98 12/02/18 13:03 60 20 60 12/02/18 13:00 55 20 109/46 (67) 96 Height (Feet): 5 Height (Inches): 5.00 Weight (Pounds): 181 Objective HEENT: Eyes were normal. Pupils were round, equal, and reactive to light. Sclerae were white. Conjunctivae were pink. ENT, mucous membranes were not dehydrated. NECK: Supple. No lymphadenopathy. LUNGS: Clear. HEART: PMI was in fifth left intercostal space in midclavicular line. There was normal S1 and normal S2. There was no murmur. No arrhythmia. No S3. No S4. No pericardial rub. ABDOMEN: Soft, nontender without organomegaly. There were no masses palpable. Normal bowel sounds without bruits. There was no guarding. No rebound tenderness. No CVA tenderness. EXTREMITIES: No cyanosis, clubbing, and no edema. Extremities were warm. Laboratory Tests Test 12/03/18 04:00 Sodium Level 144 MMOL/L (136-145) Potassium Level 3.9 MMOL/L (3.5-5.1) Chloride Level 112 MMOL/L (98-107) H Carbon Dioxide Level 21 MMOL/L (21-32) Anion Gap 11 mmol/L (5-15) Blood Urea Nitrogen 21 mg/dL (7-18) H Creatinine 1.2 MG/DL (0.55-1.30) Estimat Glomerular Filtration Rate 48.4 mL/min (>60) Glucose Level 102 MG/DL (74-106) Calcium Level 9.3 MG/DL (8.5-10.1) Pro-B-Type Natriuretic Peptide 38224 pg/mL (0-125) H Current Medications Medications (Trade) Dose Ordered Sig/Penny Route PRN Reason Start Time Stop Time Status Last Admin Dose Admin Acetaminophen (Tylenol) 650 mg Q4H PRN GT Mild Pain/Temp > 100.5 12/02/18 19:42 01/01/19 19:41 Acetaminophen/ Codeine Phosphate (Tylenol #3) 1 tab Q6H PRN GT Moderate Pain (Pain Scale 4-6) 12/02/18 19:42 12/09/18 19:41 12/03/18 08:33 Amlodipine Besylate (Norvasc) 10 mg DAILY GT 12/03/18 09:00 12/19/18 08:59 12/03/18 08:35 Diphenhydramine HCl (Benadryl) 25 mg Q6H PRN IVP Itching 12/02/18 19:43 01/01/19 19:42 Haloperidol Lactate (Haldol) 5 mg Q6H PRN IM Agitation 12/02/18 19:43 01/01/19 19:42 Heparin Sodium (Porcine) (Heparin 5000 units/ml) 5,000 units EVERY 12 HOURS SUBQ 12/02/18 21:00 12/19/18 08:59 12/03/18 08:38 Hydralazine HCl (Apresoline) 100 mg Q6HR GT 12/03/18 00:00 12/31/18 00:00 12/03/18 06:21 Lansoprazole (Prevacid) 30 mg DAILY GT 12/03/18 09:00 12/30/18 08:59 12/03/18 08:32 Lorazepam (Ativan 2mg/ml 1ml) 1 mg Q4H PRN IV For Anxiety 12/02/18 19:43 12/09/18 19:42 12/03/18 05:21 Losartan Potassium (Cozaar) 25 mg DAILY GT 12/03/18 09:00 01/02/19 08:59 12/03/18 08:36 Meropenem 1 gm/ Sodium Chloride 55 ml @ 110 mls/hr Q12HR IVPB 12/02/18 21:00 12/04/18 23:59 12/03/18 08:54 Metoprolol Tartrate (Lopressor) 12.5 mg Q12HR GT 12/02/18 21:00 01/01/19 20:59 12/03/18 08:35 Ondansetron HCl (Zofran) 4 mg Q8H PRN IM Nausea & Vomiting 12/02/18 19:43 01/01/19 19:42 Oxycodone/ Acetaminophen (Percocet 10325) 1 tab Q6H PRN GT Severe Pain (Pain Scale 7-10) 12/03/18 12:00 12/10/18 11:59 12/03/18 11:30 Polyethylene Glycol (Miralax) 17 gm DAILY GT 12/03/18 09:00 12/28/18 21:44 Thiamine HCl (Vitamin B1) 100 mg DAILY GT 12/03/18 09:00 12/19/18 08:59 12/03/18 08:33 Vancomycin HCl (Vanco rx to dose) 1 ea DAILY PRN MISC Per rx protocol 12/03/18 09:00 12/25/18 07:44 Vancomycin HCl 750 mg/Sodium Chloride 275 ml @ 183.333 mls/hr Q24H IVPB 12/03/18 08:00 12/07/18 07:59 12/03/18 07:48 Zinc Oxide (Zinc Oxide) 1 applic DAILY TOPIC 12/03/18 09:00 12/29/18 15:29 12/03/18 10:13 Doreen Nino M.D. Dec 03, 2018 12:38
--- NOTE | 2018-12-03 12:45 | Cardiology Report ---
APPROVED REPORT EKG Measurement Heart [id number] [place] [id number] Sinus rhythm with frequent premature ventricular complexes in a pattern of bigeminy Rightward axis Septal infarct, age undetermined Abnormal ECG
--- NOTE | 2018-12-03 14:11 | Hematology/Onc Progress Note ---
Assessment/Plan Assessment/Plan # Anemia of chronic disease due to underlying chronic medical issues, multifactorial --> Anemia workup has been reviewed, cw acd --> No evidence of hemolysis is noted, peripheral smear has been reviewed. --> Hgb goal >7. Transfuse prn. --> Epogen or iron at this time is not particularly indicated --> Medications have been reviewed --> low threshold for gi evaluation in case has occult + --> hgb 7.1-->7.8-->8.9->9.2-->8.5 # Leukocytosis, recurrent- increased, now improving --> PPM site (pocket) infection (redness and pain, bacteremia) and likely pocket abscess- no vegetation seen on ABBIE --> is s'p pm removal and also pocket infection is better --> per cards recs in re to tach/davis --> wbc 15-->19-->17-->15 # Thrombocytois is likely reactive process, is s/p infection --> plt trend 610k # Acute hypoxic respiratory failure s/p intubation 11/23- ?ARDS --> on vent/trach # Gram positive bacteremia- real bacteremia- 2ry to above and probable PNA --> per id care # JAVIER initially >2 --> now improved with D5w # Dypshagia s/p peg # thoracic aortic dissection s/p repair early 2017 # [place] resident # Dvt ppx scds The timing of this note does not necessarily reflect the time of the patient was seen. Greatly appreciate consultation. Subjective HEENT: Denies: no symptoms, eye pain, blurred vision, tearing, double vision, ear pain, ear discharge, nose pain, nose congestion, throat pain, throat swelling, mouth pain, mouth swelling, other Cardiovascular: Denies: no symptoms, chest pain, edema, irregular heart rate, lightheadedness, palpitations, syncope, other Respiratory: Denies: no symptoms, cough, shortness of breath, SOB with excertion, SOB at rest, sputum, wheezing, other Gastrointestinal/Abdominal: Denies: no symptoms, abdomen distended, abdominal pain, black stools, tarry stools, blood in stool, constipated, diarrhea, difficulty swallowing, nausea, poor appetite, poor fluid intake, rectal bleeding , vomiting, other Genitourinary: Denies: no symptoms, burning, discharge, frequency, flank pain, hematuria, incontinence, pain, urgency, other Neurologic/Psychiatric: Denies: no symptoms, anxiety, depressed, emotional problems, headache, numbness, paresthesia, pre-existing deficit, seizure, tingling, tremors, weakness, other Endocrine: Denies: no symptoms, excessive sweating, flushing, intolerance to cold, intolerance to heat, increased hunger, increased thirst, increased urine, unexplained weight gain, unexplained weight loss, other Allergies: Coded Allergies: No Known Allergies (Unverified , 10/10/17) Subjective 11/27: PRBC was given yest, no events, seen by cards, no bleeding 11/28: laying in bed, nonverbal, agitated, pulling on trach 11/29: gtube feeds per rd, no bleeding or chills noted, in icu 11/30: no events to report, no bleeding 12/01: labs reviewe,d on trach/vent in icu, no changes per rn 12/02: intubated, is awake and responsive, no bleeding or night sweats reported 12/03: no event, no bleeding, gi recs reviewed, pending ppm Objective Objective Current Medications Medications (Trade) Dose Ordered Sig/Penny Route PRN Reason Start Time Stop Time Status Last Admin Dose Admin Acetaminophen (Tylenol) 650 mg Q4H PRN GT Mild Pain/Temp > 100.5 12/02/18 19:42 01/01/19 19:41 Acetaminophen/ Codeine Phosphate (Tylenol #3) 1 tab Q6H PRN GT Moderate Pain (Pain Scale 4-6) 12/02/18 19:42 12/09/18 19:41 12/03/18 08:33 Amlodipine Besylate (Norvasc) 10 mg DAILY GT 12/03/18 09:00 12/19/18 08:59 12/03/18 08:35 Diphenhydramine HCl (Benadryl) 25 mg Q6H PRN IVP Itching 12/02/18 19:43 01/01/19 19:42 Haloperidol Lactate (Haldol) 5 mg Q6H PRN IM Agitation 12/02/18 19:43 01/01/19 19:42 Heparin Sodium (Porcine) (Heparin 5000 units/ml) 5,000 units EVERY 12 HOURS SUBQ 12/02/18 21:00 12/19/18 08:59 12/03/18 08:38 Hydralazine HCl (Apresoline) 100 mg Q6HR GT 12/03/18 00:00 12/31/18 00:00 12/03/18 12:41 Lansoprazole (Prevacid) 30 mg DAILY GT 12/03/18 09:00 12/30/18 08:59 12/03/18 08:32 Lorazepam (Ativan 2mg/ml 1ml) 1 mg Q4H PRN IV For Anxiety 12/02/18 19:43 12/09/18 19:42 12/03/18 12:56 Losartan Potassium (Cozaar) 25 mg DAILY GT 12/03/18 09:00 01/02/19 08:59 12/03/18 08:36 Meropenem 1 gm/ Sodium Chloride 55 ml @ 110 mls/hr Q12HR IVPB 12/02/18 21:00 12/04/18 23:59 12/03/18 08:54 Metoprolol Tartrate (Lopressor) 12.5 mg Q12HR GT 12/02/18 21:00 01/01/19 20:59 12/03/18 08:35 Ondansetron HCl (Zofran) 4 mg Q8H PRN IM Nausea & Vomiting 12/02/18 19:43 01/01/19 19:42 Oxycodone/ Acetaminophen (Percocet 10/325) 1 tab Q6H PRN GT Severe Pain (Pain Scale 7-10) 12/03/18 12:00 12/10/18 11:59 12/03/18 11:30 Polyethylene Glycol (Miralax) 17 gm DAILY GT 12/03/18 09:00 12/28/18 21:44 Thiamine HCl (Vitamin B1) 100 mg DAILY GT 12/03/18 09:00 12/19/18 08:59 12/03/18 08:33 Vancomycin HCl (Vanco rx to dose) 1 ea DAILY PRN MISC Per rx protocol 12/03/18 09:00 12/25/18 07:44 Vancomycin HCl 750 mg/Sodium Chloride 275 ml @ 183.333 mls/hr Q24H IVPB 12/03/18 08:00 12/07/18 07:59 12/03/18 07:48 Zinc Oxide (Zinc Oxide) 1 applic DAILY TOPIC 12/03/18 09:00 12/29/18 15:29 12/03/18 10:13 Last 24 Hour Vital Signs Date Time Temp Pulse Resp B/P (MAP) Pulse Ox O2 Delivery O2 Flow Rate FiO2 12/03/18 13:09 62 24 40 12/03/18 12:41 138/76 12/03/18 12:00 Mechanical Ventilator 12/03/18 12:00 98.1 62 20 138/76 (96) 97 12/03/18 12:00 50 12/03/18 10:54 55 20 40 12/03/18 09:03 62 22 40 12/03/18 08:36 158/84 12/03/18 08:35 61 12/03/18 08:35 61 158/84 12/03/18 08:00 Mechanical Ventilator 12/03/18 08:00 63 12/03/18 08:00 98.6 64 20 155/74 (101) 97 12/03/18 08:00 50 12/03/18 07:20 66 24 40 12/03/18 06:21 159/78 12/03/18 05:08 67 27 40 12/03/18 05:00 97.7 67 20 159/78 (105) 96 12/03/18 04:00 Mechanical Ventilator 12/03/18 04:00 50 12/03/18 03:36 58 12/03/18 03:30 58 20 40 12/03/18 01:12 59 20 40 12/03/18 00:30 162/79 12/03/18 00:00 Mechanical Ventilator 12/03/18 00:00 50 12/03/18 00:00 98.0 64 20 162/79 (106) 96 12/02/18 23:32 68 12/02/18 23:10 61 23 40 12/02/18 20:49 70 24 40 12/02/18 20:21 64 12/02/18 20:19 64 149/70 12/02/18 20:00 98.2 64 20 149/70 (96) 96 12/02/18 20:00 50 12/02/18 20:00 Mechanical Ventilator 12/02/18 18:51 66 23 40 12/02/18 18:00 77 22 187/81 (116) 97 12/02/18 17:47 185/75 12/02/18 17:14 64 21 40 12/02/18 17:00 64 24 185/75 (111) 100 12/02/18 16:00 97.9 66 21 156/63 (94) 96 12/02/18 16:00 50 12/02/18 16:00 68 12/02/18 16:00 Mechanical Ventilator 12/02/18 15:00 65 21 170/71 (104) 100 12/02/18 14:47 76 27 50 12/02/18 14:00 73 24 171/71 (104) 100 12/02/18 13:45 72 22 169/73 (105) 98 12/02/18 13:03 60 20 60 12/02/18 13:00 55 20 109/46 (67) 96 12/02/18 12:17 154/61 12/02/18 12:00 60 12/02/18 12:00 Mechanical Ventilator 12/02/18 12:00 52 12/02/18 12:00 98.5 102 27 167/119 (135) 100 12/02/18 11:00 50 20 176/75 (108) 100 12/02/18 10:32 58 22 60 12/02/18 10:00 60 20 175/71 (105) 97 12/02/18 09:00 60 19 178/74 (108) 100 12/02/18 08:59 61 167/119 12/02/18 08:43 68 22 60 12/02/18 08:00 98.3 102 27 167/119 (135) 100 12/02/18 08:00 56 12/02/18 08:00 Mechanical Ventilator 12/02/18 08:00 60 12/02/18 07:00 52 20 156/62 (93) 95 12/02/18 06:31 52 20 60 12/02/18 06:00 53 20 158/62 (94) 95 12/02/18 05:46 174/74 12/02/18 05:05 61 20 60 12/02/18 05:00 73 21 174/74 (107) 99 12/02/18 04:00 60 12/02/18 04:00 54 12/02/18 04:00 61 20 163/60 (94) 100 12/02/18 04:00 Mechanical Ventilator 12/02/18 03:00 54 16 147/57 (87) 96 12/02/18 02:56 55 20 70 12/02/18 02:00 69 24 170/62 (98) 100 12/02/18 01:20 83 27 70 12/02/18 01:00 73 15 178/77 (110) 100 12/02/18 00:06 158/58 12/02/18 00:00 Mechanical Ventilator 12/02/18 00:00 97.7 60 19 158/58 (91) 98 12/02/18 00:00 54 12/01/18 23:00 70 12/01/18 23:00 54 20 124/53 (76) 96 12/01/18 22:42 54 20 70 12/01/18 22:00 64 21 146/53 (84) 58 12/01/18 21:00 64 21 169/74 (105) 100 12/01/18 21:00 68 22 80 12/01/18 20:00 64 12/01/18 20:00 97.8 67 20 172/72 (105) 99 12/01/18 20:00 Mechanical Ventilator 12/01/18 20:00 80 12/01/18 19:00 64 21 184/77 (112) 98 12/01/18 18:57 65 22 80 12/01/18 18:33 149/55 12/01/18 18:00 54 20 149/55 (86) 100 12/01/18 17:00 69 23 149/63 (91) 100 12/01/18 16:51 78 30 100 12/01/18 16:00 Mechanical Ventilator 12/01/18 16:00 97.7 68 23 157/71 (99) 100 12/01/18 16:00 65 12/01/18 16:00 100 12/01/18 15:00 55 20 153/66 (95) 100 12/01/18 14:30 56 20 100 Intake and Output 12/02/18 12/03/18 19:00 07:00 Intake Total 1160.000 ml 545 ml Output Total 448 ml 700 ml Balance 712.000 ml -155 ml Intake Free Water 100 ml 50 ml IV Total 580.000 ml 55 ml Tube Feeding 480 ml 440 ml Output Urine Total 448 ml 700 ml # Bowel Movements 4 Labs Test 11/30/18 21:50 12/01/18 06:55 12/02/18 04:47 12/02/18 08:45 Arterial Blood pH 7.486 (7.350-7.450) 7.471 (7.350-7.450) Arterial Blood Partial Pressure CO2 28.7 mmHg (35.0-45.0) 28.6 mmHg (35.0-45.0) Arterial Blood Partial Pressure O2 175.2 mmHg (75.0-100.0) 105.0 mmHg (75.0-100.0) Arterial Blood HCO3 21.2 mmol/L (22.0-26.0) 20.4 mmol/L (22.0-26.0) Arterial Blood Oxygen Saturation 98.7 % (95-100) 97.4 % (95-100) Arterial Blood Base Excess -1.2 (-2-2) -2.5 (-2-2) Rojas Test Positive Positive White Blood Count 15.0 K/UL (4.8-10.8) 15.2 K/UL (4.8-10.8) Red Blood Count 2.94 M/UL (4.20-5.40) 3.00 M/UL (4.20-5.40) Hemoglobin 8.2 G/DL (12.0-16.0) 8.5 G/DL (12.0-16.0) Hematocrit 25.4 % (37.0-47.0) 26.1 % (37.0-47.0) Mean Corpuscular Volume 86 FL (80-99) 87 FL (80-99) Mean Corpuscular Hemoglobin 27.8 PG (27.0-31.0) 28.5 PG (27.0-31.0) Mean Corpuscular Hemoglobin Concent 32.2 G/DL (32.0-36.0) 32.7 G/DL (32.0-36.0) Red Cell Distribution Width 15.4 % (11.6-14.8) 15.5 % (11.6-14.8) Platelet Count 524 K/UL (150-450) 610 K/UL (150-450) Mean Platelet Volume 4.8 FL (6.5-10.1) 4.9 FL (6.5-10.1) Neutrophils (%) (Auto) 72.5 % (45.0-75.0) 66.8 % (45.0-75.0) Lymphocytes (%) (Auto) 19.2 % (20.0-45.0) 22.2 % (20.0-45.0) Monocytes (%) (Auto) 4.0 % (1.0-10.0) 5.2 % (1.0-10.0) Eosinophils (%) (Auto) 3.8 % (0.0-3.0) 5.2 % (0.0-3.0) Basophils (%) (Auto) 0.4 % (0.0-2.0) 0.7 % (0.0-2.0) Sodium Level 151 MMOL/L (136-145) 148 MMOL/L (136-145) Potassium Level 3.3 MMOL/L (3.5-5.1) 3.4 MMOL/L (3.5-5.1) Chloride Level 115 MMOL/L (98-107) 113 MMOL/L (98-107) Carbon Dioxide Level 25 MMOL/L (21-32) 23 MMOL/L (21-32) Anion Gap 11 mmol/L (5-15) 12 mmol/L (5-15) Blood Urea Nitrogen 25 mg/dL (7-18) 22 mg/dL (7-18) Creatinine 1.1 MG/DL (0.55-1.30) 1.1 MG/DL (0.55-1.30) Estimat Glomerular Filtration Rate 53.5 mL/min (>60) 53.5 mL/min (>60) Glucose Level 97 MG/DL (74-106) 99 MG/DL (74-106) Calcium Level 9.0 MG/DL (8.5-10.1) 9.0 MG/DL (8.5-10.1) Phosphorus Level 3.1 MG/DL (2.5-4.9) 3.5 MG/DL (2.5-4.9) Magnesium Level 2.0 MG/DL (1.8-2.4) 2.0 MG/DL (1.8-2.4) Total Bilirubin 0.6 MG/DL (0.2-1.0) 0.7 MG/DL (0.2-1.0) Aspartate Amino Transf (AST/SGOT) 30 U/L (15-37) 61 U/L (15-37) Alanine Aminotransferase (ALT/SGPT) 45 U/L (12-78) 60 U/L (12-78) Alkaline Phosphatase 997 U/L (46-116) 1054 U/L (46-116) Total Protein 6.7 G/DL (6.4-8.2) 6.8 G/DL (6.4-8.2) Albumin 2.3 G/DL (3.4-5.0) 2.4 G/DL (3.4-5.0) Globulin 4.4 g/dL 4.4 g/dL Albumin/Globulin Ratio 0.5 (1.0-2.7) 0.5 (1.0-2.7) Vancomycin Level Trough 16.5 ug/mL (5.0-12.0) Test 12/03/18 04:00 Sodium Level 144 MMOL/L (136-145) Potassium Level 3.9 MMOL/L (3.5-5.1) Chloride Level 112 MMOL/L (98-107) Carbon Dioxide Level 21 MMOL/L (21-32) Anion Gap 11 mmol/L (5-15) Blood Urea Nitrogen 21 mg/dL (7-18) Creatinine 1.2 MG/DL (0.55-1.30) Estimat Glomerular Filtration Rate 48.4 mL/min (>60) Glucose Level 102 MG/DL (74-106) Calcium Level 9.3 MG/DL (8.5-10.1) Pro-B-Type Natriuretic Peptide 24284 pg/mL (0-125) Height (Feet): 5 Height (Inches): 5.00 Weight (Pounds): 181 Objective Gen: on vent, altered HEENT Sclerae were white. ENT ++trach/vent NECK: Supple. No lymphadenopathy. LUNGS: Clear. HEART: PMI was in fifth left intercostal space in midclavicular line. ABDOMEN: Soft, nontender without organomegaly. There were no masses ++ peg EXTREMITIES: No cyanosi Evan Muhammad MD Dec 03, 2018 14:11
[2018-12-03 16:00] VITALS: BP 157/77
[2018-12-03 20:00] VITALS: BP 147/74
--- NOTE | 2018-12-03 20:22 | Cardiology Progress Note ---
Assessment/Plan Assessment/Plan pacemaker pocket infection s/p pacer explantation 11/26/2018 bacteremia staph epi HTN anxiety chronic resp failure s/p trach s/p PEG thoracic aortic dissection s/p repair early 2017 [facility] resident bilateral infiltrates increased alk phosph and ggtp (patricia performed 11/27/2018 neg for vegetation ) keep on iv abx not on acie or arb due to renal insuf on hydralazine will increase the dose nto suign clonidine or labetolol due to davis watch cr with diuretics bp is better she overall look better tele reviewed Subjective Cardiovascular: Denies: chest pain, lightheadedness, palpitations Respiratory: Denies: shortness of breath Gastrointestinal/Abdominal: Denies: abdominal pain Subjective on vent Objective Last 24 Hour Vital Signs Date Time Temp Pulse Resp B/P (MAP) Pulse Ox O2 Delivery O2 Flow Rate FiO2 12/03/18 18:44 76 26 40 12/03/18 17:25 157/77 12/03/18 17:20 56 20 40 12/03/18 16:00 Mechanical Ventilator 12/03/18 16:00 50 12/03/18 16:00 98.6 61 20 157/77 (103) 98 12/03/18 15:52 58 12/03/18 15:11 60 22 40 12/03/18 13:09 62 24 40 12/03/18 12:41 138/76 12/03/18 12:00 Mechanical Ventilator 12/03/18 12:00 98.1 62 20 138/76 (96) 97 12/03/18 12:00 50 12/03/18 11:47 60 12/03/18 10:54 55 20 40 12/03/18 09:03 62 22 40 12/03/18 08:36 158/84 12/03/18 08:35 61 12/03/18 08:35 61 158/84 12/03/18 08:00 Mechanical Ventilator 12/03/18 08:00 63 12/03/18 08:00 98.6 64 20 155/74 (101) 97 12/03/18 08:00 50 12/03/18 07:20 66 24 40 12/03/18 06:21 159/78 12/03/18 05:08 67 27 40 12/03/18 05:00 97.7 67 20 159/78 (105) 96 12/03/18 04:00 Mechanical Ventilator 12/03/18 04:00 50 12/03/18 03:36 58 12/03/18 03:30 58 20 40 12/03/18 01:12 59 20 40 12/03/18 00:30 162/79 12/03/18 00:00 Mechanical Ventilator 12/03/18 00:00 50 12/03/18 00:00 98.0 64 20 162/79 (106) 96 12/02/18 23:32 68 12/02/18 23:10 61 23 40 12/02/18 20:49 70 24 40 General Appearance: no apparent distress, alert, on vent, patient on isolation Cardiovascular: normal rate Respiratory/Chest: lungs clear Abdomen: normal bowel sounds, non tender, soft Extremities: no swelling Intake and Output 12/02/18 12/03/18 19:00 07:00 Intake Total 1160.000 ml 545 ml Output Total 448 ml 700 ml Balance 712.000 ml -155 ml Intake Free Water 100 ml 50 ml IV Total 580.000 ml 55 ml Tube Feeding 480 ml 440 ml Output Urine Total 448 ml 700 ml # Bowel Movements 4 Laboratory Tests Test 12/03/18 04:00 Sodium Level 144 MMOL/L (136-145) Potassium Level 3.9 MMOL/L (3.5-5.1) Chloride Level 112 MMOL/L (98-107) H Carbon Dioxide Level 21 MMOL/L (21-32) Anion Gap 11 mmol/L (5-15) Blood Urea Nitrogen 21 mg/dL (7-18) H Creatinine 1.2 MG/DL (0.55-1.30) Estimat Glomerular Filtration Rate 48.4 mL/min (>60) Glucose Level 102 MG/DL (74-106) Calcium Level 9.3 MG/DL (8.5-10.1) Pro-B-Type Natriuretic Peptide 58639 pg/mL (0-125) H Carlos Rooney MD Dec 03, 2018 20:22
[2018-12-04] VITALS: BP 150/77
[2018-12-04] MEDS: LORazepam Inj 2mg/ml 1ml IV PRN ×4 (02:53→23:32)
[2018-12-04 04:00] VITALS: BP 154/76
[2018-12-04 04:46] LABS: BASOPHILS % (AUTO) 0.9 % (0.0-2.0); EOSINOPHILS % (AUTO) 5.4 % (0.0-3.0); HEMATOCRIT 29.9 % (37.0-47.0); HEMOGLOBIN 9.7 G/DL (12.0-16.0); LYMPHOCYTES % (AUTO) 25.6 % (20.0-45.0); MEAN CORPUSCULAR VOLUME 88 FL (80-99); MONOCYTES % (AUTO) 4.3 % (1.0-10.0); NEUTROPHILS % (AUTO) 63.8 % (45.0-75.0); PLATELET COUNT 706 K/UL (150-450); RED CELL DISTRIBUTION WIDTH 16.8 % (11.6-14.8); WHITE BLOOD COUNT 13.1 K/UL (4.8-10.8)
[2018-12-04] MEDS: HydrALAZINE 50mg tab GT SCH ×3 (05:12→17:42)
[2018-12-04 05:31] LABS: ALANINE AMINOTRANSFERASE 60 U/L (12-78); ALBUMIN 2.6 G/DL (3.4-5.0); ALBUMIN/GLOBULIN RATIO 0.6 (1.0-2.7); ALKALINE PHOSPHATASE 1047 U/L (46-116); ANION GAP 14 mmol/L (5-15); ASPARTATE AMINO TRANSFERASE 48 U/L (15-37); BILIRUBIN,TOTAL 0.6 MG/DL (0.2-1.0); BLOOD UREA NITROGEN 24 mg/dL (7-18); CALCIUM 9.5 MG/DL (8.5-10.1); CARBON DIOXIDE 21 MMOL/L (21-32); CHLORIDE 109 MMOL/L (98-107); CREATININE 1.2 MG/DL (0.55-1.30); POTASSIUM 3.8 MMOL/L (3.5-5.1); SODIUM 144 MMOL/L (136-145)
--- NOTE | 2018-12-04 05:53 | Hematology/Onc Progress Note ---
Assessment/Plan Assessment/Plan # Anemia of chronic disease due to underlying chronic medical issues, multifactorial --> Anemia workup has been reviewed, cw acd --> No evidence of hemolysis is noted, peripheral smear has been reviewed. --> Hgb goal >7. Transfuse prn. --> Epogen or iron at this time is not particularly indicated --> Medications have been reviewed --> low threshold for gi evaluation in case has occult + --> hgb 7.1-->7.8-->8.9->9.2-->8.5-->9.7 # Leukocytosis, recurrent- increased, now improving --> PPM site (pocket) infection (redness and pain, bacteremia) and likely pocket abscess - no vegetation seen on ABBIE --> is s'p pm removal and also pocket infection is better --> per cards recs in re to tach/davis --> wbc 15-->19-->17-->15-->13 # Thrombocytois is likely reactive process, is s/p infection --> plt trend 610k-->706k --> p smear reviewed # Acute hypoxic respiratory failure s/p intubation 11/23- ?ARDS --> on vent/trach # Gram positive bacteremia- real bacteremia- 2ry to above and probable PNA --> per id care # JAVIER initially >2 --> now improved with D5w # Dysphagia s/p peg # Thoracic aortic dissection s/p repair early 2017 # [place] resident # Dvt ppx scds The timing of this note does not necessarily reflect the time of the patient was seen. Greatly appreciate consultation. Subjective Constitutional: Denies: no symptoms, chills, fever, malaise, weakness, other Cardiovascular: Denies: no symptoms, chest pain, edema, irregular heart rate, lightheadedness, palpitations, syncope, other Respiratory: Denies: no symptoms, cough, shortness of breath, SOB with excertion, SOB at rest, sputum, wheezing, other Gastrointestinal/Abdominal: Denies: no symptoms, abdomen distended, abdominal pain, black stools, tarry stools, blood in stool, constipated, diarrhea, difficulty swallowing, nausea, poor appetite, poor fluid intake, rectal bleeding , vomiting, other Genitourinary: Denies: no symptoms, burning, discharge, frequency, flank pain, hematuria, incontinence, pain, urgency, other Neurologic/Psychiatric: Denies: no symptoms, anxiety, depressed, emotional problems, headache, numbness, paresthesia, pre-existing deficit, seizure, tingling, tremors, weakness, other Hematologic/Lymphatic: Denies: no symptoms, anemia, easy bleeding, easy bruising, adenopathy, other Allergies: Coded Allergies: No Known Allergies (Unverified , 10/10/17) Subjective 11/27: PRBC was given yest, no events, seen by cards, no bleeding 11/28: laying in bed, nonverbal, agitated, pulling on trach 11/29: gtube feeds per rd, no bleeding or chills noted, in icu 11/30: no events to report, no bleeding 12/01: labs reviewe,d on trach/vent in icu, no changes per rn 12/02: intubated, is awake and responsive, no bleeding or night sweats reported 12/03: no event, no bleeding, gi recs reviewed, pending ppm 12/04: no events overnight, no bleeding or chills, out of unit, seen by cards Objective Objective Current Medications Medications (Trade) Dose Ordered Sig/Penny Route PRN Reason Start Time Stop Time Status Last Admin Dose Admin Acetaminophen (Tylenol) 650 mg Q4H PRN GT Mild Pain/Temp > 100.5 12/02/18 19:42 01/01/19 19:41 Acetaminophen/ Codeine Phosphate (Tylenol #3) 1 tab Q6H PRN GT Moderate Pain (Pain Scale 4-6) 12/02/18 19:42 12/09/18 19:41 12/03/18 14:48 Amlodipine Besylate (Norvasc) 10 mg DAILY GT 12/03/18 09:00 12/19/18 08:59 12/03/18 08:35 Diphenhydramine HCl (Benadryl) 25 mg Q6H PRN IVP Itching 12/02/18 19:43 01/01/19 19:42 Haloperidol Lactate (Haldol) 5 mg Q6H PRN IM Agitation 12/02/18 19:43 01/01/19 19:42 12/04/18 05:12 Heparin Sodium (Porcine) (Heparin 5000 units/ml) 5,000 units EVERY 12 HOURS SUBQ 12/02/18 21:00 11/6/19 08:59 12/03/18 20:23 Hydralazine HCl (Apresoline) 100 mg Q6HR GT 12/03/18 00:00 12/31/18 00:00 12/04/18 05:12 Lansoprazole (Prevacid) 30 mg DAILY GT 12/03/18 09:00 12/30/18 08:59 12/03/18 08:32 Lorazepam (Ativan 2mg/ml 1ml) 1 mg Q4H PRN IV For Anxiety 12/02/18 19:43 12/09/18 19:42 12/04/18 02:53 Losartan Potassium (Cozaar) 25 mg DAILY GT 12/03/18 09:00 01/02/19 08:59 12/03/18 08:36 Meropenem 1 gm/ Sodium Chloride 55 ml @ 110 mls/hr Q12HR IVPB 12/02/18 21:00 12/04/18 23:59 12/03/18 20:21 Metoprolol Tartrate (Lopressor) 12.5 mg Q12HR GT 12/02/18 21:00 01/01/19 20:59 12/03/18 08:35 Ondansetron HCl (Zofran) 4 mg Q8H PRN IM Nausea & Vomiting 12/02/18 19:43 01/01/19 19:42 Oxycodone/ Acetaminophen (Percocet 10325) 1 tab Q6H PRN GT Severe Pain (Pain Scale 7-10) 12/03/18 12:00 12/10/18 11:59 12/03/18 23:19 Polyethylene Glycol (Miralax) 17 gm DAILY GT 12/03/18 09:00 12/28/18 21:44 Thiamine HCl (Vitamin B1) 100 mg DAILY GT 12/03/18 09:00 12/19/18 08:59 12/03/18 08:33 Vancomycin HCl (Vanco rx to dose) 1 ea DAILY PRN MISC Per rx protocol 12/03/18 09:00 12/25/18 07:44 Vancomycin HCl 750 mg/Sodium Chloride 275 ml @ 183.333 mls/hr Q24H IVPB 12/03/18 08:00 12/31/18 23:59 12/03/18 07:48 Zinc Oxide (Zinc Oxide) 1 applic DAILY TOPIC 12/03/18 09:00 12/29/18 15:29 12/03/18 10:13 Last 24 Hour Vital Signs Date Time Temp Pulse Resp B/P (MAP) Pulse Ox O2 Delivery O2 Flow Rate FiO2 12/04/18 05:12 154/76 12/04/18 05:05 73 24 40 12/04/18 04:00 50 12/04/18 04:00 98.3 68 26 154/76 (102) 97 12/04/18 04:00 Mechanical Ventilator 12/04/18 03:27 51 12/04/18 03:03 58 20 40 12/04/18 00:56 61 20 40 12/04/18 00:00 50 12/04/18 00:00 98.4 53 20 150/77 (101) 95 12/04/18 00:00 Mechanical Ventilator 12/03/18 23:27 66 12/03/18 23:10 69 20 40 12/03/18 23:05 166/79 12/03/18 20:37 63 147/74 12/03/18 20:36 61 21 40 12/03/18 20:00 50 12/03/18 20:00 Mechanical Ventilator 12/03/18 20:00 98.8 63 20 147/74 (98) 99 12/03/18 19:34 65 12/03/18 19:26 60 21 96 Mechanical Ventilator 40 12/03/18 18:44 76 26 40 12/03/18 17:25 157/77 12/03/18 17:20 56 20 40 12/03/18 16:00 Mechanical Ventilator 12/03/18 16:00 50 12/03/18 16:00 98.6 61 20 157/77 (103) 98 12/03/18 15:52 58 12/03/18 15:11 60 22 40 12/03/18 13:09 62 24 40 12/03/18 12:41 138/76 12/03/18 12:00 Mechanical Ventilator 12/03/18 12:00 98.1 62 20 138/76 (96) 97 12/03/18 12:00 50 12/03/18 11:47 60 12/03/18 10:54 55 20 40 12/03/18 09:03 62 22 40 12/03/18 08:36 158/84 12/03/18 08:35 61 12/03/18 08:35 61 158/84 12/03/18 08:00 Mechanical Ventilator 12/03/18 08:00 63 12/03/18 08:00 98.6 64 20 155/74 (101) 97 12/03/18 08:00 50 12/03/18 07:20 66 24 40 12/03/18 06:21 159/78 12/03/18 05:08 67 27 40 12/03/18 05:00 97.7 67 20 159/78 (105) 96 12/03/18 04:00 Mechanical Ventilator 12/03/18 04:00 50 12/03/18 03:36 58 12/03/18 03:30 58 20 40 12/03/18 01:12 59 20 40 12/03/18 00:30 162/79 12/03/18 00:00 Mechanical Ventilator 12/03/18 00:00 50 12/03/18 00:00 98.0 64 20 162/79 (106) 96 12/02/18 23:32 68 12/02/18 23:10 61 23 40 12/02/18 20:49 70 24 40 12/02/18 20:21 64 12/02/18 20:19 64 149/70 12/02/18 20:00 98.2 64 20 149/70 (96) 96 12/02/18 20:00 50 12/02/18 20:00 Mechanical Ventilator 12/02/18 18:51 66 23 40 12/02/18 18:00 77 22 187/81 (116) 97 12/02/18 17:47 185/75 12/02/18 17:14 64 21 40 12/02/18 17:00 64 24 185/75 (111) 100 12/02/18 16:00 97.9 66 21 156/63 (94) 96 12/02/18 16:00 50 12/02/18 16:00 68 12/02/18 16:00 Mechanical Ventilator 12/02/18 15:00 65 21 170/71 (104) 100 12/02/18 14:47 76 27 50 12/02/18 14:00 73 24 171/71 (104) 100 12/02/18 13:45 72 22 169/73 (105) 98 12/02/18 13:03 60 20 60 12/02/18 13:00 55 20 109/46 (67) 96 12/02/18 12:17 154/61 12/02/18 12:00 60 12/02/18 12:00 Mechanical Ventilator 12/02/18 12:00 52 12/02/18 12:00 98.5 102 27 167/119 (135) 100 12/02/18 11:00 50 20 176/75 (108) 100 12/02/18 10:32 58 22 60 12/02/18 10:00 60 20 175/71 (105) 97 12/02/18 09:00 60 19 178/74 (108) 100 12/02/18 08:59 61 167/119 12/02/18 08:43 68 22 60 12/02/18 08:00 98.3 102 27 167/119 (135) 100 12/02/18 08:00 56 12/02/18 08:00 Mechanical Ventilator 12/02/18 08:00 60 12/02/18 07:00 52 20 156/62 (93) 95 12/02/18 06:31 52 20 60 12/02/18 06:00 53 20 158/62 (94) 95 Intake and Output 12/03/18 12/04/18 19:00 07:00 Intake Total 1016.666 ml 555 ml Output Total 800 ml Balance 216.666 ml 555 ml Intake Free Water 100 ml 100 ml IV Total 476.666 ml 55 ml Tube Feeding 440 ml 400 ml Output Urine Total 800 ml # Bowel Movements 5 Labs Test 12/01/18 06:55 12/02/18 04:47 12/02/18 08:45 12/03/18 04:00 White Blood Count 15.0 K/UL (4.8-10.8) 15.2 K/UL (4.8-10.8) Red Blood Count 2.94 M/UL (4.20-5.40) 3.00 M/UL (4.20-5.40) Hemoglobin 8.2 G/DL (12.0-16.0) 8.5 G/DL (12.0-16.0) Hematocrit 25.4 % (37.0-47.0) 26.1 % (37.0-47.0) Mean Corpuscular Volume 86 FL (80-99) 87 FL (80-99) Mean Corpuscular Hemoglobin 27.8 PG (27.0-31.0) 28.5 PG (27.0-31.0) Mean Corpuscular Hemoglobin Concent 32.2 G/DL (32.0-36.0) 32.7 G/DL (32.0-36.0) Red Cell Distribution Width 15.4 % (11.6-14.8) 15.5 % (11.6-14.8) Platelet Count 524 K/UL (150-450) 610 K/UL (150-450) Mean Platelet Volume 4.8 FL (6.5-10.1) 4.9 FL (6.5-10.1) Neutrophils (%) (Auto) 72.5 % (45.0-75.0) 66.8 % (45.0-75.0) Lymphocytes (%) (Auto) 19.2 % (20.0-45.0) 22.2 % (20.0-45.0) Monocytes (%) (Auto) 4.0 % (1.0-10.0) 5.2 % (1.0-10.0) Eosinophils (%) (Auto) 3.8 % (0.0-3.0) 5.2 % (0.0-3.0) Basophils (%) (Auto) 0.4 % (0.0-2.0) 0.7 % (0.0-2.0) Sodium Level 151 MMOL/L (136-145) 148 MMOL/L (136-145) 144 MMOL/L (136-145) Potassium Level 3.3 MMOL/L (3.5-5.1) 3.4 MMOL/L (3.5-5.1) 3.9 MMOL/L (3.5-5.1) Chloride Level 115 MMOL/L (98-107) 113 MMOL/L (98-107) 112 MMOL/L (98-107) Carbon Dioxide Level 25 MMOL/L (21-32) 23 MMOL/L (21-32) 21 MMOL/L (21-32) Anion Gap 11 mmol/L (5-15) 12 mmol/L (5-15) 11 mmol/L (5-15) Blood Urea Nitrogen 25 mg/dL (7-18) 22 mg/dL (7-18) 21 mg/dL (7-18) Creatinine 1.1 MG/DL (0.55-1.30) 1.1 MG/DL (0.55-1.30) 1.2 MG/DL (0.55-1.30) Estimat Glomerular Filtration Rate 53.5 mL/min (>60) 53.5 mL/min (>60) 48.4 mL/min (>60) Glucose Level 97 MG/DL (74-106) 99 MG/DL (74-106) 102 MG/DL (74-106) Calcium Level 9.0 MG/DL (8.5-10.1) 9.0 MG/DL (8.5-10.1) 9.3 MG/DL (8.5-10.1) Phosphorus Level 3.1 MG/DL (2.5-4.9) 3.5 MG/DL (2.5-4.9) Magnesium Level 2.0 MG/DL (1.8-2.4) 2.0 MG/DL (1.8-2.4) Total Bilirubin 0.6 MG/DL (0.2-1.0) 0.7 MG/DL (0.2-1.0) Aspartate Amino Transf (AST/SGOT) 30 U/L (15-37) 61 U/L (15-37) Alanine Aminotransferase (ALT/SGPT) 45 U/L (12-78) 60 U/L (12-78) Alkaline Phosphatase 997 U/L (46-116) 1054 U/L (46-116) Total Protein 6.7 G/DL (6.4-8.2) 6.8 G/DL (6.4-8.2) Albumin 2.3 G/DL (3.4-5.0) 2.4 G/DL (3.4-5.0) Globulin 4.4 g/dL 4.4 g/dL Albumin/Globulin Ratio 0.5 (1.0-2.7) 0.5 (1.0-2.7) Vancomycin Level Trough 16.5 ug/mL (5.0-12.0) Arterial Blood pH 7.471 (7.350-7.450) Arterial Blood Partial Pressure CO2 28.6 mmHg (35.0-45.0) Arterial Blood Partial Pressure O2 105.0 mmHg (75.0-100.0) Arterial Blood HCO3 20.4 mmol/L (22.0-26.0) Arterial Blood Oxygen Saturation 97.4 % (95-100) Arterial Blood Base Excess -2.5 (-2-2) Rojas Test Positive Pro-B-Type Natriuretic Peptide 87692 pg/mL (0-125) Test 12/04/18 03:50 White Blood Count 13.1 K/UL (4.8-10.8) Red Blood Count 3.40 M/UL (4.20-5.40) Hemoglobin 9.7 G/DL (12.0-16.0) Hematocrit 29.9 % (37.0-47.0) Mean Corpuscular Volume 88 FL (80-99) Mean Corpuscular Hemoglobin 28.5 PG (27.0-31.0) Mean Corpuscular Hemoglobin Concent 32.4 G/DL (32.0-36.0) Red Cell Distribution Width 16.8 % (11.6-14.8) Platelet Count 706 K/UL (150-450) Mean Platelet Volume 4.8 FL (6.5-10.1) Neutrophils (%) (Auto) 63.8 % (45.0-75.0) Lymphocytes (%) (Auto) 25.6 % (20.0-45.0) Monocytes (%) (Auto) 4.3 % (1.0-10.0) Eosinophils (%) (Auto) 5.4 % (0.0-3.0) Basophils (%) (Auto) 0.9 % (0.0-2.0) Sodium Level 144 MMOL/L (136-145) Potassium Level 3.8 MMOL/L (3.5-5.1) Chloride Level 109 MMOL/L (98-107) Carbon Dioxide Level 21 MMOL/L (21-32) Anion Gap 14 mmol/L (5-15) Blood Urea Nitrogen 24 mg/dL (7-18) Creatinine 1.2 MG/DL (0.55-1.30) Estimat Glomerular Filtration Rate 48.4 mL/min (>60) Glucose Level 99 MG/DL (74-106) Calcium Level 9.5 MG/DL (8.5-10.1) Total Bilirubin 0.6 MG/DL (0.2-1.0) Gamma Glutamyl Transpeptidase 628 U/L (5-85) Aspartate Amino Transf (AST/SGOT) 48 U/L (15-37) Alanine Aminotransferase (ALT/SGPT) 60 U/L (12-78) Alkaline Phosphatase 1047 U/L (46-116) Total Protein 7.3 G/DL (6.4-8.2) Albumin 2.6 G/DL (3.4-5.0) Globulin 4.7 g/dL Albumin/Globulin Ratio 0.6 (1.0-2.7) Height (Feet): 5 Height (Inches): 5.00 Weight (Pounds): 181 Objective Gen: on vent, altered HEENT Sclerae were white. ENT ++trach/vent NECK: Supple. No lymphadenopathy. LUNGS: Clear. HEART: PMI was in fifth left intercostal space in midclavicular line. ABDOMEN: Soft, nontender without organomegaly. There were no masses ++ peg EXTREMITIES: No cyanosi Evan Muhammad MD Dec 04, 2018 05:53
[2018-12-04] MEDS: Vancomycin 750 MG in NS 275 ML IVPB SCH (07:55)
[2018-12-04 08:00] VITALS: BP 141/72
[2018-12-04] MEDS: Metoprolol Tartrate 12.5mg TAB GT SCH ×2 (09:08→21:00)
[2018-12-04] MEDS: Miralax 17gm pkt GT SCH (09:09)
[2018-12-04] MEDS: Losartan 25mg tab GT SCH (09:10)
[2018-12-04] MEDS: Thiamine 100mg tab GT SCH (09:10)
[2018-12-04] MEDS: Meropenem 1 GM in NS 55 ML IVPB SCH ×2 (09:11→21:13)
[2018-12-04] MEDS: Zinc Oxide Oint 2oz TOPIC SCH (09:15)
[2018-12-04] MEDS: Heparin 5000 units/ml inj SUBQ SCH ×2 (09:16→21:15)
--- NOTE | 2018-12-04 11:18 | Pulmonolgy Critical Care Note ---
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 Discussed with: consultants, case brieferfast food services manager - Objective Last 24 Hour Vital Signs Date Time Temp Pulse Resp B/P (MAP) Pulse Ox O2 Delivery O2 Flow Rate FiO2 12/04/18 09:18 59 20 40 12/04/18 09:10 141/72 12/04/18 09:08 60 141/72 12/04/18 09:00 60 141/72 12/04/18 08:00 98.3 60 20 141/72 (95) 94 12/04/18 08:00 50 12/04/18 08:00 Mechanical Ventilator 12/04/18 07:23 53 20 40 12/04/18 05:12 154/76 12/04/18 05:05 73 24 40 12/04/18 04:00 50 12/04/18 04:00 98.3 68 26 154/76 (102) 97 12/04/18 04:00 Mechanical Ventilator 12/04/18 03:27 51 12/04/18 03:03 58 20 40 12/04/18 00:56 61 20 40 12/04/18 00:00 50 12/04/18 00:00 98.4 53 20 150/77 (101) 95 12/04/18 00:00 Mechanical Ventilator 12/03/18 23:27 66 12/03/18 23:10 69 20 40 12/03/18 23:05 166/79 12/03/18 20:37 63 147/74 12/03/18 20:36 61 21 40 12/03/18 20:00 50 12/03/18 20:00 Mechanical Ventilator 12/03/18 20:00 98.8 63 20 147/74 (98) 99 12/03/18 19:34 65 12/03/18 19:26 60 21 96 Mechanical Ventilator 40 12/03/18 18:44 76 26 40 12/03/18 17:25 157/77 12/03/18 17:20 56 20 40 12/03/18 16:00 Mechanical Ventilator 12/03/18 16:00 50 12/03/18 16:00 98.6 61 20 157/77 (103) 98 12/03/18 15:52 58 12/03/18 15:11 60 22 40 12/03/18 13:09 62 24 40 12/03/18 12:41 138/76 12/03/18 12:00 Mechanical Ventilator 12/03/18 12:00 98.1 62 20 138/76 (96) 97 12/03/18 12:00 50 12/03/18 11:47 60 Status: awake Condition: grave HEENT: atraumatic Neck: full ROM Lungs: chest wall tender Heart: HR/BP stable, HR/BP unstable Abdomen: non-tender, feeding tube Decubiti: stage Accucheck: 218 Critical Care - Subjective ROS Limited/Unobtainable: No Condition: critical FI02: 40 Vent Support Breath Rate: 20 Vent Support Mode: AC Vent Tidal Volume: 600 Sputum Amount: Small PEEP: 8.0 PIP: 26 Tube Feeding Amount: 40 I&O: Intake and Output 12/03/18 12/04/18 19:00 07:00 Intake Total 1016.666 ml 635 ml Output Total 800 ml Balance 216.666 ml 635 ml Intake Free Water 100 ml 100 ml IV Total 476.666 ml 55 ml Tube Feeding 440 ml 480 ml Output Urine Total 800 ml # Bowel Movements 5 Labs: Laboratory Tests Test 12/04/18 03:50 White Blood Count 13.1 K/UL (4.8-10.8) H Red Blood Count 3.40 M/UL (4.20-5.40) L Hemoglobin 9.7 G/DL (12.0-16.0) L Hematocrit 29.9 % (37.0-47.0) L Mean Corpuscular Volume 88 FL (80-99) Mean Corpuscular Hemoglobin 28.5 PG (27.0-31.0) Mean Corpuscular Hemoglobin Concent 32.4 G/DL (32.0-36.0) Red Cell Distribution Width 16.8 % (11.6-14.8) H Platelet Count 706 K/UL (150-450) H Mean Platelet Volume 4.8 FL (6.5-10.1) L Neutrophils (%) (Auto) 63.8 % (45.0-75.0) Lymphocytes (%) (Auto) 25.6 % (20.0-45.0) Monocytes (%) (Auto) 4.3 % (1.0-10.0) Eosinophils (%) (Auto) 5.4 % (0.0-3.0) H Basophils (%) (Auto) 0.9 % (0.0-2.0) Sodium Level 144 MMOL/L (136-145) Potassium Level 3.8 MMOL/L (3.5-5.1) Chloride Level 109 MMOL/L (98-107) H Carbon Dioxide Level 21 MMOL/L (21-32) Anion Gap 14 mmol/L (5-15) Blood Urea Nitrogen 24 mg/dL (7-18) H Creatinine 1.2 MG/DL (0.55-1.30) Estimat Glomerular Filtration Rate 48.4 mL/min (>60) Glucose Level 99 MG/DL (74-106) Calcium Level 9.5 MG/DL (8.5-10.1) Total Bilirubin 0.6 MG/DL (0.2-1.0) Gamma Glutamyl Transpeptidase 628 U/L (5-85) H Aspartate Amino Transf (AST/SGOT) 48 U/L (15-37) H Alanine Aminotransferase (ALT/SGPT) 60 U/L (12-78) Alkaline Phosphatase 1047 U/L (46-116) H Total Protein 7.3 G/DL (6.4-8.2) Albumin 2.6 G/DL (3.4-5.0) L Globulin 4.7 g/dL Albumin/Globulin Ratio 0.6 (1.0-2.7) L Ranjith Arora MD Dec 04, 2018 11:17
[2018-12-04] MEDS: Tylenol #3 tab (300mg/30mg) GT PRN ×2 (11:31→17:43)
[2018-12-04 12:00] VITALS: BP 147/70
--- NOTE | 2018-12-04 12:29 | Infectious Diseases Prog Note ---
Assessment/Plan Assessment/Plan Assessment: Acute on chronic hypoxic respiratory failure - ?ARDS Fever;SP Leukocytosis, recurrent- increased, now improving -u.a wbc 5-10, nit neg, leuk +1 PPM site (pocket) infection (redness and pain, bacteremia) and likely pocket abscess- no vegetation seen on ABBIE -11/27 SP ABBIE: no evidence for vegetation on any of the valves -11/26 SP PPM removal: -OR findings:The fibrous capsule enclosing the generator was then opened and there was a [id number]-zqekfayf amount of yellowish fluid drainage. The generator was then removed.Atrial and ventricular leads were detached. The necrotic tissue of the pocket was then removed and the pocket was flushed with an antibiotic solution. -Capsule, wound tissue and lead tip cx: NTD -2d echo: no vegetation seen -US chest: 4.6 x 3.4 x 0.9 cm hypoechoic/anechoic area overlying left chest pacemaker power pack. This could represent either a discrete fluid collection or a focal area of very edematous tissue. Infected fluid pocket also possible. Gram positive bacteremia- real bacteremia- 2ry to above -11/18 Bcx 3/4 S. epi; 11/20 Bcx neg; 11/24 Bcx Neg; 11/27 Bcx Neg Probable PNA -12/02 CXR: Bilateral airspace opacities, worse in the right lung, has improved since the prior study. -11/28 sp cx: PsA (arnett S), ABC (I Ceftriaxone; otherwise negative) -11/26 CXR: Slightly improved aeration of the right lung base. Otherwise mostly stable bilateral interstitial and airspace disease -CXR: etrocardiac consolidation, possibly pneumonia. Right basilar atelectasis -sp cx MRSA, ABC (I Ceftriaxone; otherwise S) Recent aspiration PNA and UTI (late September 2018) -u/a wbc 5-10, nit +, leuk +1; ucx >100k Enterobacter aerogenes (R ancef, nitro; otherwise S) -sp cx MRSA, ABC (I Ceftriaxone); repeat sp cx 11/28 p HTN anxiety chronic resp failure s/p trach s/p PEG thoracic aortic dissection s/p repair early 2017 [facility] Plan: -Continue empiric IV Vancomycin #17 for S. epi bacteremia, PPM site infection and abscess and PNA - guidelines favor treatment for endocarditis in the setting of +pocket infection and bacteremia with Staph; expected end date 12/31/18; weekly CBC, BMP , Vanco through -in terms of device re-implantation, will await patient afebrile for at least 48hrs, leukocytosis resolved and repeat Bcx 11/27 (after device removal) negative in 72 hours -Continue Meropenem #6/7 (abx d #15) for PNA given worsening wbc -11/29 SP Zosyn #11 -f.u cx -Monitor CBC/CMP, temperatures -Cards f/u -Cdiff if diarrhea -If wbc remains elevated and when Cr better improved, will do CT chest abd/p w/ Thank you for this consultation. Will continue to follow along with you. Subjective Allergies: Coded Allergies: No Known Allergies (Unverified , 10/10/17) Subjective afebrile wbc improving repeat BCx Neg Fio2 down to 40% Objective Vital Signs Last 24 Hour Vital Signs Date Time Temp Pulse Resp B/P (MAP) Pulse Ox O2 Delivery O2 Flow Rate FiO2 12/04/18 11:30 147/70 12/04/18 11:17 57 21 40 12/04/18 09:18 59 20 40 12/04/18 09:10 141/72 12/04/18 09:08 60 141/72 12/04/18 09:00 60 141/72 12/04/18 08:00 98.3 60 20 141/72 (95) 94 12/04/18 08:00 50 12/04/18 08:00 50 12/04/18 08:00 Mechanical Ventilator 12/04/18 07:23 53 20 40 12/04/18 05:12 154/76 12/04/18 05:05 73 24 40 12/04/18 04:00 50 12/04/18 04:00 98.3 68 26 154/76 (102) 97 12/04/18 04:00 Mechanical Ventilator 12/04/18 03:27 51 12/04/18 03:03 58 20 40 12/04/18 00:56 61 20 40 12/04/18 00:00 50 12/04/18 00:00 98.4 53 20 150/77 (101) 95 12/04/18 00:00 Mechanical Ventilator 12/03/18 23:27 66 12/03/18 23:10 69 20 40 12/03/18 23:05 166/79 12/03/18 20:37 63 147/74 12/03/18 20:36 61 21 40 12/03/18 20:00 50 12/03/18 20:00 Mechanical Ventilator 12/03/18 20:00 98.8 63 20 147/74 (98) 99 12/03/18 19:34 65 12/03/18 19:26 60 21 96 Mechanical Ventilator 40 12/03/18 18:44 76 26 40 12/03/18 17:25 157/77 12/03/18 17:20 56 20 40 12/03/18 16:00 Mechanical Ventilator 12/03/18 16:00 50 12/03/18 16:00 98.6 61 20 157/77 (103) 98 12/03/18 15:52 58 12/03/18 15:11 60 22 40 12/03/18 13:09 62 24 40 12/03/18 12:41 138/76 Height (Feet): 5 Height (Inches): 5.00 Weight (Pounds): 180 Objective HEENT: Eyes were normal. Pupils were round, equal, and reactive to light. Sclerae were white. Conjunctivae were pink. ENT, mucous membranes were not dehydrated. NECK: Supple. No lymphadenopathy. LUNGS: Clear. HEART: PMI was in fifth left intercostal space in midclavicular line. There was normal S1 and normal S2. There was no murmur. No arrhythmia. No S3. No S4. No pericardial rub. ABDOMEN: Soft, nontender without organomegaly. There were no masses palpable. Normal bowel sounds without bruits. There was no guarding. No rebound tenderness. No CVA tenderness. EXTREMITIES: No cyanosis, clubbing, and no edema. Extremities were warm. Laboratory Tests Test 12/04/18 03:50 White Blood Count 13.1 K/UL (4.8-10.8) H Red Blood Count 3.40 M/UL (4.20-5.40) L Hemoglobin 9.7 G/DL (12.0-16.0) L Hematocrit 29.9 % (37.0-47.0) L Mean Corpuscular Volume 88 FL (80-99) Mean Corpuscular Hemoglobin 28.5 PG (27.0-31.0) Mean Corpuscular Hemoglobin Concent 32.4 G/DL (32.0-36.0) Red Cell Distribution Width 16.8 % (11.6-14.8) H Platelet Count 706 K/UL (150-450) H Mean Platelet Volume 4.8 FL (6.5-10.1) L Neutrophils (%) (Auto) 63.8 % (45.0-75.0) Lymphocytes (%) (Auto) 25.6 % (20.0-45.0) Monocytes (%) (Auto) 4.3 % (1.0-10.0) Eosinophils (%) (Auto) 5.4 % (0.0-3.0) H Basophils (%) (Auto) 0.9 % (0.0-2.0) Sodium Level 144 MMOL/L (136-145) Potassium Level 3.8 MMOL/L (3.5-5.1) Chloride Level 109 MMOL/L (98-107) H Carbon Dioxide Level 21 MMOL/L (21-32) Anion Gap 14 mmol/L (5-15) Blood Urea Nitrogen 24 mg/dL (7-18) H Creatinine 1.2 MG/DL (0.55-1.30) Estimat Glomerular Filtration Rate 48.4 mL/min (>60) Glucose Level 99 MG/DL (74-106) Calcium Level 9.5 MG/DL (8.5-10.1) Total Bilirubin 0.6 MG/DL (0.2-1.0) Gamma Glutamyl Transpeptidase 628 U/L (5-85) H Aspartate Amino Transf (AST/SGOT) 48 U/L (15-37) H Alanine Aminotransferase (ALT/SGPT) 60 U/L (12-78) Alkaline Phosphatase 1047 U/L (46-116) H Total Protein 7.3 G/DL (6.4-8.2) Albumin 2.6 G/DL (3.4-5.0) L Globulin 4.7 g/dL Albumin/Globulin Ratio 0.6 (1.0-2.7) L Current Medications Medications (Trade) Dose Ordered Sig/Penny Route PRN Reason Start Time Stop Time Status Last Admin Dose Admin Acetaminophen (Tylenol) 650 mg Q4H PRN GT Mild Pain/Temp > 100.5 12/02/18 19:42 01/01/19 19:41 Acetaminophen/ Codeine Phosphate (Tylenol #3) 1 tab Q6H PRN GT Moderate Pain (Pain Scale 4-6) 12/02/18 19:42 12/09/18 19:41 12/04/18 11:31 Amlodipine Besylate (Norvasc) 10 mg DAILY GT 12/03/18 09:00 12/19/18 08:59 12/03/18 08:35 Diphenhydramine HCl (Benadryl) 25 mg Q6H PRN IVP Itching 12/02/18 19:43 01/01/19 19:42 Haloperidol Lactate (Haldol) 5 mg Q6H PRN IM Agitation 12/02/18 19:43 01/01/19 19:42 12/04/18 05:12 Heparin Sodium (Porcine) (Heparin 5000 units/ml) 5,000 units EVERY 12 HOURS SUBQ 12/02/18 21:00 12/19/18 08:59 12/04/18 09:16 Hydralazine HCl (Apresoline) 100 mg Q6HR GT 12/03/18 00:00 12/31/18 00:00 12/04/18 11:30 Lansoprazole (Prevacid) 30 mg DAILY GT 12/03/18 09:00 12/30/18 08:59 12/04/18 09:10 Lorazepam (Ativan 2mg/ml 1ml) 1 mg Q4H PRN IV For Anxiety 12/02/18 19:43 12/09/18 19:42 12/04/18 10:26 Losartan Potassium (Cozaar) 25 mg DAILY GT 12/03/18 09:00 01/02/19 08:59 12/04/18 09:10 Meropenem 1 gm/ Sodium Chloride 55 ml @ 110 mls/hr Q12HR IVPB 12/02/18 21:00 12/04/18 23:59 12/04/18 09:11 Metoprolol Tartrate (Lopressor) 12.5 mg Q12HR GT 12/02/18 21:00 01/01/19 20:59 12/04/18 09:08 Ondansetron HCl (Zofran) 4 mg Q8H PRN IM Nausea & Vomiting 12/02/18 19:43 01/01/19 19:42 Oxycodone/ Acetaminophen (Percocet 10/325) 1 tab Q6H PRN GT Severe Pain (Pain Scale 7-10) 12/03/18 12:00 12/10/18 11:59 12/03/18 23:19 Polyethylene Glycol (Miralax) 17 gm DAILY GT 12/03/18 09:00 12/28/18 21:44 12/04/18 09:09 Thiamine HCl (Vitamin B1) 100 mg DAILY GT 12/03/18 09:00 12/19/18 08:59 12/04/18 09:10 Vancomycin HCl (Vanco rx to dose) 1 ea DAILY PRN MISC Per rx protocol 12/03/18 09:00 12/25/18 07:44 Vancomycin HCl 750 mg/Sodium Chloride 275 ml @ 183.333 mls/hr Q24H IVPB 12/03/18 08:00 12/31/18 23:59 12/04/18 07:55 Zinc Oxide (Zinc Oxide) 1 applic DAILY TOPIC 12/03/18 09:00 12/29/18 15:29 12/04/18 09:15 Doreen Nino M.D. Dec 04, 2018 12:29
[2018-12-04] MEDS ORDERED: MERREM1 GM IV (12:49)
[2018-12-04] MEDS ORDERED: VANCOMYCIN750 MG/150 IV (12:49)
--- NOTE | 2018-12-04 13:18 | GI Progress Note ---
Assessment/Plan Problems: (1) GT CLOGGED (2) Anemia ICD Codes: D64.9 - Anemia, unspecified SNOMED: [id number] Qualifiers: Qualified Codes: D64.9 - Anemia, unspecified Status: unchanged Status Narrative Discussed with Dr. Mccauley. Assessment/Plan GT replaced last week reported patient has been having ice chips and puree diet, recommend video swallow study r/o any silent aspiration GTFs per RD to goal Zinc oxide daily around G-tube site twice daily dressing changes Anemia work-up reviewed US reviewed, consider paracentesis PPI Electrolyte correction Follow labs The patient was seen and examined at bedside and all new and available data was reviewed in the patients chart. I agree with the above findings, impression and plan. (Patient seen earlier today. Signature stamp does not reflect patient encounter time.). - Inder Mccauley MD Subjective Subjective limited Objective Last 24 Hour Vital Signs Date Time Temp Pulse Resp B/P (MAP) Pulse Ox O2 Delivery O2 Flow Rate FiO2 12/04/18 12:00 98.4 55 20 147/70 (95) 94 12/04/18 12:00 50 12/04/18 12:00 55 12/04/18 12:00 Mechanical Ventilator 12/04/18 11:30 147/70 12/04/18 11:17 57 21 40 12/04/18 09:18 59 20 40 12/04/18 09:10 141/72 12/04/18 09:08 60 141/72 12/04/18 09:00 60 141/72 12/04/18 08:00 98.3 60 20 141/72 (95) 94 12/04/18 08:00 50 12/04/18 08:00 50 12/04/18 08:00 Mechanical Ventilator 12/04/18 07:23 53 20 40 12/04/18 05:12 154/76 12/04/18 05:05 73 24 40 12/04/18 04:00 50 12/04/18 04:00 98.3 68 26 154/76 (102) 97 12/04/18 04:00 Mechanical Ventilator 12/04/18 03:27 51 12/04/18 03:03 58 20 40 12/04/18 00:56 61 20 40 12/04/18 00:00 50 12/04/18 00:00 98.4 53 20 150/77 (101) 95 12/04/18 00:00 Mechanical Ventilator 12/03/18 23:27 66 12/03/18 23:10 69 20 40 12/03/18 23:05 166/79 12/03/18 20:37 63 147/74 12/03/18 20:36 61 21 40 12/03/18 20:00 50 12/03/18 20:00 Mechanical Ventilator 12/03/18 20:00 98.8 63 20 147/74 (98) 99 12/03/18 19:34 65 12/03/18 19:26 60 21 96 Mechanical Ventilator 40 12/03/18 18:44 76 26 40 12/03/18 17:25 157/77 12/03/18 17:20 56 20 40 12/03/18 16:00 Mechanical Ventilator 12/03/18 16:00 50 12/03/18 16:00 98.6 61 20 157/77 (103) 98 12/03/18 15:52 58 12/03/18 15:11 60 22 40 Intake and Output 12/03/18 12/04/18 19:00 07:00 Intake Total 1016.666 ml 635 ml Output Total 800 ml Balance 216.666 ml 635 ml Intake Free Water 100 ml 100 ml IV Total 476.666 ml 55 ml Tube Feeding 440 ml 480 ml Output Urine Total 800 ml # Bowel Movements 5 Laboratory Tests Test 12/04/18 03:50 White Blood Count 13.1 K/UL (4.8-10.8) H Red Blood Count 3.40 M/UL (4.20-5.40) L Hemoglobin 9.7 G/DL (12.0-16.0) L Hematocrit 29.9 % (37.0-47.0) L Mean Corpuscular Volume 88 FL (80-99) Mean Corpuscular Hemoglobin 28.5 PG (27.0-31.0) Mean Corpuscular Hemoglobin Concent 32.4 G/DL (32.0-36.0) Red Cell Distribution Width 16.8 % (11.6-14.8) H Platelet Count 706 K/UL (150-450) H Mean Platelet Volume 4.8 FL (6.5-10.1) L Neutrophils (%) (Auto) 63.8 % (45.0-75.0) Lymphocytes (%) (Auto) 25.6 % (20.0-45.0) Monocytes (%) (Auto) 4.3 % (1.0-10.0) Eosinophils (%) (Auto) 5.4 % (0.0-3.0) H Basophils (%) (Auto) 0.9 % (0.0-2.0) Sodium Level 144 MMOL/L (136-145) Potassium Level 3.8 MMOL/L (3.5-5.1) Chloride Level 109 MMOL/L (98-107) H Carbon Dioxide Level 21 MMOL/L (21-32) Anion Gap 14 mmol/L (5-15) Blood Urea Nitrogen 24 mg/dL (7-18) H Creatinine 1.2 MG/DL (0.55-1.30) Estimat Glomerular Filtration Rate 48.4 mL/min (>60) Glucose Level 99 MG/DL (74-106) Calcium Level 9.5 MG/DL (8.5-10.1) Total Bilirubin 0.6 MG/DL (0.2-1.0) Gamma Glutamyl Transpeptidase 628 U/L (5-85) H Aspartate Amino Transf (AST/SGOT) 48 U/L (15-37) H Alanine Aminotransferase (ALT/SGPT) 60 U/L (12-78) Alkaline Phosphatase 1047 U/L (46-116) H Total Protein 7.3 G/DL (6.4-8.2) Albumin 2.6 G/DL (3.4-5.0) L Globulin 4.7 g/dL Albumin/Globulin Ratio 0.6 (1.0-2.7) L Height (Feet): 5 Height (Inches): 5.00 Weight (Pounds): 180 General Appearance: no apparent distress Cardiovascular: normal rate Respiratory/Chest: normal breath sounds, no respiratory distress, other - trach Abdominal Exam: normal bowel sounds, non tender, soft, GT site - c/d/i Extremities: non-tender Josue Santamaria NP Dec 04, 2018 13:18
[2018-12-04 16:00] VITALS: BP 154/70
--- NOTE | 2018-12-04 16:58 | Cardiology Progress Note ---
Assessment/Plan Assessment/Plan pacemaker pocket infection s/p pacer explantation 11/26/2018 bacteremia staph epi HTN anxiety chronic resp failure s/p trach s/p PEG thoracic aortic dissection s/p repair early 2017 [facility] resident bilateral infiltrates increased alk phosph and ggtp (patricia performed 11/27/2018 neg for vegetation ) keep on iv abx not on acie or arb due to renal insuf on hydralazine will increase the dose nto suign clonidine or labetolol due to davis watch cr with diuretics bp is better she overall look better tele reviewed sinus davis no need for a pacemaker at this moment but dr fleming feel she will need one eventually plan for her to get transfered to a lower level of care for abx over several weeks this plan will be acceptable with me adn dr fleming as long as the chronic vent facility she will be monitored regularly with respect to vitals and heart rate and will have blood cx repeated after she finishes a course of abx and dr fleming is notified so she can arrange for pacemaker once cleared form ID [email or web address] d/w dr garcia who will discuss with dr Dong who will follow the pt senior care at the vent facility to arrange the needed fu dr fle[place] no [phone] avoid any beta blockers and neg chronotropic calcium channel flori such as verapamil or cardizem Subjective Cardiovascular: Denies: chest pain, lightheadedness Respiratory: Denies: shortness of breath Gastrointestinal/Abdominal: Denies: abdominal pain Genitourinary: Denies: burning Subjective on vent Objective Last 24 Hour Vital Signs Date Time Temp Pulse Resp B/P (MAP) Pulse Ox O2 Delivery O2 Flow Rate FiO2 12/04/18 16:00 Mechanical Ventilator 12/04/18 16:00 30 12/04/18 15:02 61 22 40 12/04/18 13:20 59 21 40 12/04/18 12:00 98.4 55 20 147/70 (95) 94 12/04/18 12:00 40 12/04/18 12:00 55 12/04/18 12:00 Mechanical Ventilator 12/04/18 11:30 147/70 12/04/18 11:17 57 21 40 12/04/18 09:18 59 20 40 12/04/18 09:10 141/72 12/04/18 09:08 60 141/72 10/22/19 09:00 60 141/72 12/04/18 08:00 98.3 60 20 141/72 (95) 94 12/04/18 08:00 50 12/04/18 08:00 40 12/04/18 08:00 Mechanical Ventilator 12/04/18 07:23 53 20 40 12/04/18 05:12 154/76 12/04/18 05:05 73 24 40 12/04/18 04:00 50 12/04/18 04:00 98.3 68 26 154/76 (102) 97 12/04/18 04:00 Mechanical Ventilator 12/04/18 03:27 51 12/04/18 03:03 58 20 40 12/04/18 00:56 61 20 40 12/04/18 00:00 50 12/04/18 00:00 98.4 53 20 150/77 (101) 95 12/04/18 00:00 Mechanical Ventilator 12/03/18 23:27 66 12/03/18 23:10 69 20 40 12/03/18 23:05 166/79 12/03/18 20:37 63 147/74 12/03/18 20:36 61 21 40 12/03/18 20:00 50 12/03/18 20:00 Mechanical Ventilator 12/03/18 20:00 98.8 63 20 147/74 (98) 99 12/03/18 19:34 65 12/03/18 19:26 60 21 96 Mechanical Ventilator 40 12/03/18 18:44 76 26 40 12/03/18 17:25 157/77 12/03/18 17:20 56 20 40 General Appearance: no apparent distress, alert Neck: supple Cardiovascular: normal rate Respiratory/Chest: lungs clear Abdomen: non tender, soft Extremities: non-tender Intake and Output 12/03/18 12/04/18 19:00 07:00 Intake Total 1016.666 ml 635 ml Output Total 800 ml Balance 216.666 ml 635 ml Intake Free Water 100 ml 100 ml IV Total 476.666 ml 55 ml Tube Feeding 440 ml 480 ml Output Urine Total 800 ml # Bowel Movements 5 Laboratory Tests Test 12/04/18 03:50 White Blood Count 13.1 K/UL (4.8-10.8) H Red Blood Count 3.40 M/UL (4.20-5.40) L Hemoglobin 9.7 G/DL (12.0-16.0) L Hematocrit 29.9 % (37.0-47.0) L Mean Corpuscular Volume 88 FL (80-99) Mean Corpuscular Hemoglobin 28.5 PG (27.0-31.0) Mean Corpuscular Hemoglobin Concent 32.4 G/DL (32.0-36.0) Red Cell Distribution Width 16.8 % (11.6-14.8) H Platelet Count 706 K/UL (150-450) H Mean Platelet Volume 4.8 FL (6.5-10.1) L Neutrophils (%) (Auto) 63.8 % (45.0-75.0) Lymphocytes (%) (Auto) 25.6 % (20.0-45.0) Monocytes (%) (Auto) 4.3 % (1.0-10.0) Eosinophils (%) (Auto) 5.4 % (0.0-3.0) H Basophils (%) (Auto) 0.9 % (0.0-2.0) Sodium Level 144 MMOL/L (136-145) Potassium Level 3.8 MMOL/L (3.5-5.1) Chloride Level 109 MMOL/L (98-107) H Carbon Dioxide Level 21 MMOL/L (21-32) Anion Gap 14 mmol/L (5-15) Blood Urea Nitrogen 24 mg/dL (7-18) H Creatinine 1.2 MG/DL (0.55-1.30) Estimat Glomerular Filtration Rate 48.4 mL/min (>60) Glucose Level 99 MG/DL (74-106) Calcium Level 9.5 MG/DL (8.5-10.1) Total Bilirubin 0.6 MG/DL (0.2-1.0) Gamma Glutamyl Transpeptidase 628 U/L (5-85) H Aspartate Amino Transf (AST/SGOT) 48 U/L (15-37) H Alanine Aminotransferase (ALT/SGPT) 60 U/L (12-78) Alkaline Phosphatase 1047 U/L (46-116) H Total Protein 7.3 G/DL (6.4-8.2) Albumin 2.6 G/DL (3.4-5.0) L Globulin 4.7 g/dL Albumin/Globulin Ratio 0.6 (1.0-2.7) L Carlos Rooney MD Dec 04, 2018 16:58
--- NOTE | 2018-12-04 19:11 | Cardiac Electrophysiology PN ---
Assessment/Plan Problem List: (1) Sepsis Assessment & Plan: Hemodynamically stable. WBC decreasing- . Pneumonia and bacteremia - on iv abx (2) Bacteremia Assessment & Plan: S epi - on iv abx per ID. Pacer felt to be likely source of infection No evidence for endocarditis by ABBIE 11/27 (3) Pacemaker Assessment & Plan: Pacer pocket site infection, and s epi bacteremia- device and leads removed 11/26. will plan re-implant when ID and pulm status cleared. (4) Acute encephalopathy (5) Acute renal failure (6) Feeding by G-tube (7) Encephalopathy (8) Tracheostomy in place Assessment & Plan: respiratory failure, pneumonia. Remains on high fio2 (9) Aortic dissection, thoracic Assessment & Plan: hx of aortic dissection repair 2018 (10) Hypokalemia Assessment & Plan: supplement (11) Hypernatremia Assessment & Plan: resolved w/ IV hypotonic fluids Status: stable, progressing Status Narrative Mrs Gillis is a 48 yo woman with hx of thoracic aortic dissection - repair (appx 1 yr ago) , chronic type b dissection, pneumonia, chronic respiratory failure, on vent, s/p g tube and s/p pacemaker placement on 11/01 at [facility] for sick sinus syndrome. She was adm w/ pain and swelling at pacer pocket site, and has s epi bacteremia. Sputum w/ acinetobacter and MRSA Pacemaker has been removed. Rhythm - SR- SB heart rates improving - . WBC is improving. she has had hypernatremia and hypokalemia,but these have been corrected. Assessment/Plan Plan for dc to [facility] over next day. She remains on vent and will complete iv abx course [facility]. I believe she has sick sinus syndrome, but is stable for dc to the [facility] without pacemaker. Would monitor there, and if significant sinus bradycardia noted, would replace pacemaker once infection is cleared. Pt to remain off b blockers and all negative chronotropic/ dromotropic agents. d/w Dr Rooney. d/w RN Subjective ROS Limited/Unobtainable: No Subjective Cardiac EP Mrs. Gillis is alert, responsive, on vent. No respiratory distress. No c/o pain Objective Last 24 Hour Vital Signs Date Time Temp Pulse Resp B/P (MAP) Pulse Ox O2 Delivery O2 Flow Rate FiO2 12/04/18 18:54 63 22 40 12/04/18 17:42 154/70 12/04/18 16:30 60 17 40 12/04/18 16:00 Mechanical Ventilator 12/04/18 16:00 98.4 57 20 154/70 (98) 98 12/04/18 16:00 30 12/04/18 16:00 58 12/04/18 15:02 61 22 40 12/04/18 13:20 59 21 40 12/04/18 12:00 98.4 55 20 147/70 (95) 94 12/04/18 12:00 40 12/04/18 12:00 55 12/04/18 12:00 Mechanical Ventilator 12/04/18 11:30 147/70 12/04/18 11:17 57 21 40 12/04/18 09:18 59 20 40 12/04/18 09:10 141/72 12/04/18 09:08 60 141/72 12/04/18 09:00 60 141/72 12/04/18 08:00 98.3 60 20 141/72 (95) 94 12/04/18 08:00 50 12/04/18 08:00 40 12/04/18 08:00 Mechanical Ventilator 12/04/18 07:23 53 20 40 12/04/18 05:12 154/76 12/04/18 05:05 73 24 40 12/04/18 04:00 50 12/04/18 04:00 98.3 68 26 154/76 (102) 97 12/04/18 04:00 Mechanical Ventilator 12/04/18 03:27 51 12/04/18 03:03 58 20 40 12/04/18 00:56 61 20 40 12/04/18 00:00 50 12/04/18 00:00 98.4 53 20 150/77 (101) 95 12/04/18 00:00 Mechanical Ventilator 12/03/18 23:27 66 12/03/18 23:10 69 20 40 12/03/18 23:05 166/79 12/03/18 20:37 63 147/74 12/03/18 20:36 61 21 40 12/03/18 20:00 50 12/03/18 20:00 Mechanical Ventilator 12/03/18 20:00 98.8 63 20 147/74 (98) 99 12/03/18 19:34 65 12/03/18 19:26 60 21 96 Mechanical Ventilator 40 General Appearance: WD/WN, alert, on vent EENT: other - trach/ vent Neck: supple, no JVD Rhythm: NSR, SB Cardiovascular: regular rhythm, no gallop/murmur, bradycardia Respiratory/Chest: other - occ rhonchi bilat Abdomen: non tender, soft, no mass, other - g tube Extremities: no swelling Intake and Output 12/03/18 12/04/18 19:00 07:00 Intake Total 1016.666 ml 635 ml Output Total 800 ml Balance 216.666 ml 635 ml Intake Free Water 100 ml 100 ml IV Total 476.666 ml 55 ml Tube Feeding 440 ml 480 ml Output Urine Total 800 ml # Bowel Movements 5 Laboratory Tests Test 12/04/18 03:50 White Blood Count 13.1 K/UL (4.8-10.8) H Red Blood Count 3.40 M/UL (4.20-5.40) L Hemoglobin 9.7 G/DL (12.0-16.0) L Hematocrit 29.9 % (37.0-47.0) L Mean Corpuscular Volume 88 FL (80-99) Mean Corpuscular Hemoglobin 28.5 PG (27.0-31.0) Mean Corpuscular Hemoglobin Concent 32.4 G/DL (32.0-36.0) Red Cell Distribution Width 16.8 % (11.6-14.8) H Platelet Count 706 K/UL (150-450) H Mean Platelet Volume 4.8 FL (6.5-10.1) L Neutrophils (%) (Auto) 63.8 % (45.0-75.0) Lymphocytes (%) (Auto) 25.6 % (20.0-45.0) Monocytes (%) (Auto) 4.3 % (1.0-10.0) Eosinophils (%) (Auto) 5.4 % (0.0-3.0) H Basophils (%) (Auto) 0.9 % (0.0-2.0) Sodium Level 144 MMOL/L (136-145) Potassium Level 3.8 MMOL/L (3.5-5.1) Chloride Level 109 MMOL/L (98-107) H Carbon Dioxide Level 21 MMOL/L (21-32) Anion Gap 14 mmol/L (5-15) Blood Urea Nitrogen 24 mg/dL (7-18) H Creatinine 1.2 MG/DL (0.55-1.30) Estimat Glomerular Filtration Rate 48.4 mL/min (>60) Glucose Level 99 MG/DL (74-106) Calcium Level 9.5 MG/DL (8.5-10.1) Total Bilirubin 0.6 MG/DL (0.2-1.0) Gamma Glutamyl Transpeptidase 628 U/L (5-85) H Aspartate Amino Transf (AST/SGOT) 48 U/L (15-37) H Alanine Aminotransferase (ALT/SGPT) 60 U/L (12-78) Alkaline Phosphatase 1047 U/L (46-116) H Total Protein 7.3 G/DL (6.4-8.2) Albumin 2.6 G/DL (3.4-5.0) L Globulin 4.7 g/dL Albumin/Globulin Ratio 0.6 (1.0-2.7) Lani Goddard MD Dec 04, 2018 19:11
[2018-12-04 20:00] VITALS: BP 148/78
[2018-12-05] VITALS: BP 149/71
[2018-12-05] MEDS: HydrALAZINE 50mg tab GT SCH ×3 (00:56→11:21)
[2018-12-05] MEDS: Tylenol #3 tab (300mg/30mg) GT PRN (01:30)
[2018-12-05 04:00] VITALS: BP 140/65
[2018-12-05 04:27] LABS: BASOPHILS % (AUTO) 0.7 % (0.0-2.0); EOSINOPHILS % (AUTO) 5.3 % (0.0-3.0); HEMATOCRIT 29.2 % (37.0-47.0); HEMOGLOBIN 9.4 G/DL (12.0-16.0); LYMPHOCYTES % (AUTO) 22.2 % (20.0-45.0); MEAN CORPUSCULAR VOLUME 87 FL (80-99); MONOCYTES % (AUTO) 5.1 % (1.0-10.0); NEUTROPHILS % (AUTO) 66.8 % (45.0-75.0); PLATELET COUNT 666 K/UL (150-450); RED BLOOD COUNT 3.36 M/UL (4.20-5.40); RED CELL DISTRIBUTION WIDTH 16.8 % (11.6-14.8); WHITE BLOOD COUNT 11.8 K/UL (4.8-10.8)
[2018-12-05 04:36] LABS: ANION GAP 13 mmol/L (5-15); BLOOD UREA NITROGEN 24 mg/dL (7-18); CALCIUM 9.3 MG/DL (8.5-10.1); CARBON DIOXIDE 22 MMOL/L (21-32); CHLORIDE 107 MMOL/L (98-107); CREATININE 1.3 MG/DL (0.55-1.30); POTASSIUM 3.5 MMOL/L (3.5-5.1); SODIUM 142 MMOL/L (136-145)
[2018-12-05 08:00] VITALS: BP 150/76
[2018-12-05] MEDS: LORazepam Inj 2mg/ml 1ml IV PRN (08:15)
[2018-12-05] MEDS: Vancomycin 750 MG in NS 275 ML IVPB SCH (08:15)
[2018-12-05] MEDS: Thiamine 100mg tab GT SCH (08:15)
[2018-12-05] MEDS: Miralax 17gm pkt GT SCH (08:16)
[2018-12-05] MEDS: Heparin 5000 units/ml inj SUBQ SCH (08:19)
[2018-12-05] MEDS: Metoprolol Tartrate 12.5mg TAB GT SCH (08:23)
[2018-12-05] MEDS: Losartan 25mg tab GT SCH (08:35)
[2018-12-05] MEDS: Meropenem 1 GM in NS 55 ML IVPB SCH (09:48)
[2018-12-05] MEDS: Zinc Oxide Oint 2oz TOPIC SCH (09:48)
--- NOTE | 2018-12-05 10:11 | Pulmonolgy Critical Care Note ---
Critical Care - Asmt/Plan Problems: (1) Chronic respiratory failure (2) Chest pain (3) JAVIER (acute kidney injury) (4) Anemia (5) Ventilator dependence (6) S/P aortic dissection repair (7) Tracheostomy in place (8) Feeding by G-tube (9) Bacteremia Respiratory: monitor respiratory rate, adjust FIO2, CXR Cardiac: continue pressors, continue to monitor HR/BP Renal: F/U I&O, keep IV fluid, check electrolytes Infectious Disease: check cultures Gastrointestinal: continue feedings/current rate Endocrine: monitor blood sugar, check HgA1C Hematologic: monitor H/H, transfuse if hgb<8.5 Neurologic: PRN Ativan, PRN Morphine, keep patient comfortable Notes 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, 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 Discussed with: nurses, consultants, behavioral health case managernatural resource manager - Objective Last 24 Hour Vital Signs Date Time Temp Pulse Resp B/P (MAP) Pulse Ox O2 Delivery O2 Flow Rate FiO2 12/05/18 09:30 59 21 50 12/05/18 08:35 148/78 12/05/18 08:25 58 12/05/18 08:23 58 151/85 12/05/18 08:00 40 12/05/18 08:00 Mechanical Ventilator 12/05/18 08:00 97.8 59 21 150/76 (100) 100 12/05/18 07:41 65 12/05/18 07:14 62 21 50 12/05/18 06:37 140/65 12/05/18 05:30 56 25 50 12/05/18 04:00 Mechanical Ventilator 12/05/18 04:00 40 12/05/18 04:00 58 12/05/18 04:00 97.5 58 14 140/65 (90) 94 12/05/18 03:15 50 29 50 12/05/18 02:22 50 20 95 Mechanical Ventilator 40 12/05/18 01:00 67 29 60 12/05/18 00:56 150/74 12/05/18 00:00 98.4 53 20 149/71 (97) 95 12/05/18 00:00 Mechanical Ventilator 12/05/18 00:00 40 12/05/18 00:00 67 12/04/18 22:58 53 20 40 12/04/18 21:15 61 2 40 12/04/18 21:00 58 148/78 12/04/18 20:00 58 12/04/18 20:00 97.9 58 20 148/78 (101) 95 12/04/18 20:00 40 12/04/18 20:00 Mechanical Ventilator 12/04/18 18:54 63 22 40 12/04/18 17:42 154/70 12/04/18 16:30 60 17 40 12/04/18 16:00 Mechanical Ventilator 12/04/18 16:00 98.4 57 20 154/70 (98) 98 12/04/18 16:00 30 12/04/18 16:00 58 12/04/18 15:02 61 22 40 12/04/18 13:20 59 21 40 12/04/18 12:00 98.4 55 20 147/70 (95) 94 12/04/18 12:00 40 12/04/18 12:00 55 12/04/18 12:00 Mechanical Ventilator 12/04/18 11:30 147/70 12/04/18 11:17 57 21 40 Status: awake Condition: improving HEENT: atraumatic Neck: full ROM Lungs: clear Heart: HR/BP stable Abdomen: soft, non-tender, feeding tube Extremities: no C/C/E Accucheck: 218 Critical Care - Subjective ROS Limited/Unobtainable: Yes Condition: critical EKG Rhythm: Sinus Rhythm FI02: 50 Vent Support Breath Rate: 20 Vent Support Mode: AC Vent Tidal Volume: 600 Sputum Amount: Moderate PEEP: 6.0 PIP: 26 Tube Feeding Amount: 40 I&O: Intake and Output 12/04/18 12/05/18 19:00 07:00 Intake Total 1030 ml 595 ml Output Total 550 ml 700 ml Balance 480 ml -105 ml Intake Free Water 220 ml 100 ml IV Total 330 ml 55 ml Tube Feeding 480 ml 440 ml Output Urine Total 550 ml 700 ml Labs: Laboratory Tests Test 12/05/18 03:15 White Blood Count 11.8 K/UL (4.8-10.8) H Red Blood Count 3.36 M/UL (4.20-5.40) L Hemoglobin 9.4 G/DL (12.0-16.0) L Hematocrit 29.2 % (37.0-47.0) L Mean Corpuscular Volume 87 FL (80-99) Mean Corpuscular Hemoglobin 28.0 PG (27.0-31.0) Mean Corpuscular Hemoglobin Concent 32.2 G/DL (32.0-36.0) Red Cell Distribution Width 16.8 % (11.6-14.8) H Platelet Count 666 K/UL (150-450) H Mean Platelet Volume 4.9 FL (6.5-10.1) L Neutrophils (%) (Auto) 66.8 % (45.0-75.0) Lymphocytes (%) (Auto) 22.2 % (20.0-45.0) Monocytes (%) (Auto) 5.1 % (1.0-10.0) Eosinophils (%) (Auto) 5.3 % (0.0-3.0) H Basophils (%) (Auto) 0.7 % (0.0-2.0) Sodium Level 142 MMOL/L (136-145) Potassium Level 3.5 MMOL/L (3.5-5.1) Chloride Level 107 MMOL/L (98-107) Carbon Dioxide Level 22 MMOL/L (21-32) Anion Gap 13 mmol/L (5-15) Blood Urea Nitrogen 24 mg/dL (7-18) H Creatinine 1.3 MG/DL (0.55-1.30) Estimat Glomerular Filtration Rate 44.1 mL/min (>60) Glucose Level 99 MG/DL (74-106) Calcium Level 9.3 MG/DL (8.5-10.1) Ranjith Arora MD Dec 05, 2018 10:11
[2018-12-05 12:00] VITALS: BP 153/67
--- NOTE | 2018-12-05 12:20 | GI Progress Note ---
Assessment/Plan Problems: (1) GT CLOGGED (2) Anemia ICD Codes: D64.9 - Anemia, unspecified SNOMED: [id number] Qualifiers: Qualified Codes: D64.9 - Anemia, unspecified Status: stable, progressing Status Narrative Discussed with Dr. Mccauley. Assessment/Plan GT replaced last week reported patient has been having ice chips and puree diet, recommend video swallow study r/o any silent aspiration GTFs per RD to goal Zinc oxide daily around G-tube site twice daily dressing changes Anemia work-up reviewed US reviewed, consider paracentesis PPI Electrolyte correction Follow labs The patient was seen and examined at bedside and all new and available data was reviewed in the patients chart. I agree with the above findings, impression and plan. (Patient seen earlier today. Signature stamp does not reflect patient encounter time.). - Inder Mccauley MD Subjective Gastrointestinal/Abdominal: Reports: no symptoms Subjective limited Objective Last 24 Hour Vital Signs Date Time Temp Pulse Resp B/P (MAP) Pulse Ox O2 Delivery O2 Flow Rate FiO2 12/05/18 12:00 50 12/05/18 12:00 98.0 58 25 153/67 (95) 100 12/05/18 12:00 Mechanical Ventilator 12/05/18 11:26 61 21 50 12/05/18 11:21 153/67 12/05/18 09:30 59 21 50 12/05/18 08:35 148/78 12/05/18 08:25 58 12/05/18 08:23 58 151/85 12/05/18 08:00 40 12/05/18 08:00 Mechanical Ventilator 12/05/18 08:00 97.8 59 21 150/76 (100) 100 12/05/18 07:41 65 12/05/18 07:14 62 21 50 12/05/18 06:37 140/65 12/05/18 05:30 56 25 50 12/05/18 04:00 Mechanical Ventilator 12/05/18 04:00 40 12/05/18 04:00 58 12/05/18 04:00 97.5 58 14 140/65 (90) 94 12/05/18 03:15 50 29 50 12/05/18 02:22 50 20 95 Mechanical Ventilator 40 12/05/18 01:00 67 29 60 10/23/19 00:56 150/74 12/05/18 00:00 98.4 53 20 149/71 (97) 95 12/05/18 00:00 Mechanical Ventilator 12/05/18 00:00 40 12/05/18 00:00 67 12/04/18 22:58 53 20 40 12/04/18 21:15 61 2 40 12/04/18 21:00 58 148/78 12/04/18 20:00 58 12/04/18 20:00 97.9 58 20 148/78 (101) 95 12/04/18 20:00 40 12/04/18 20:00 Mechanical Ventilator 12/04/18 18:54 63 22 40 12/04/18 17:42 154/70 12/04/18 16:30 60 17 40 12/04/18 16:00 Mechanical Ventilator 12/04/18 16:00 98.4 57 20 154/70 (98) 98 12/04/18 16:00 30 12/04/18 16:00 58 12/04/18 15:02 61 22 40 12/04/18 13:20 59 21 40 Intake and Output 12/04/18 12/05/18 19:00 07:00 Intake Total 1030 ml 595 ml Output Total 550 ml 700 ml Balance 480 ml -105 ml Intake Free Water 220 ml 100 ml IV Total 330 ml 55 ml Tube Feeding 480 ml 440 ml Output Urine Total 550 ml 700 ml Laboratory Tests Test 12/05/18 03:15 White Blood Count 11.8 K/UL (4.8-10.8) H Red Blood Count 3.36 M/UL (4.20-5.40) L Hemoglobin 9.4 G/DL (12.0-16.0) L Hematocrit 29.2 % (37.0-47.0) L Mean Corpuscular Volume 87 FL (80-99) Mean Corpuscular Hemoglobin 28.0 PG (27.0-31.0) Mean Corpuscular Hemoglobin Concent 32.2 G/DL (32.0-36.0) Red Cell Distribution Width 16.8 % (11.6-14.8) H Platelet Count 666 K/UL (150-450) H Mean Platelet Volume 4.9 FL (6.5-10.1) L Neutrophils (%) (Auto) 66.8 % (45.0-75.0) Lymphocytes (%) (Auto) 22.2 % (20.0-45.0) Monocytes (%) (Auto) 5.1 % (1.0-10.0) Eosinophils (%) (Auto) 5.3 % (0.0-3.0) H Basophils (%) (Auto) 0.7 % (0.0-2.0) Sodium Level 142 MMOL/L (136-145) Potassium Level 3.5 MMOL/L (3.5-5.1) Chloride Level 107 MMOL/L (98-107) Carbon Dioxide Level 22 MMOL/L (21-32) Anion Gap 13 mmol/L (5-15) Blood Urea Nitrogen 24 mg/dL (7-18) H Creatinine 1.3 MG/DL (0.55-1.30) Estimat Glomerular Filtration Rate 44.1 mL/min (>60) Glucose Level 99 MG/DL (74-106) Calcium Level 9.3 MG/DL (8.5-10.1) Height (Feet): 5 Height (Inches): 5.00 Weight (Pounds): 179 General Appearance: WD/WN, no apparent distress, alert Cardiovascular: normal rate Respiratory/Chest: normal breath sounds, no respiratory distress Abdominal Exam: normal bowel sounds, non tender, soft, GT site - c/d/i Extremities: non-tender Josue Santamaria NP Dec 05, 2018 12:20
[2018-12-05] MEDS ORDERED: NS 275ml ONE (13:05)
--- NOTE | 2018-12-06 11:02 | Discharge Summary ---
Discharge Summary Discharge Summary _ DATE OF ADMISSION: 11/18/2018 DATE OF DISCHARGE: 12/05/2018 DISCHARGED BY: Dr. Dong REASON FOR ADMISSION: 48 female, resident of [facility], with past medical history of chronic respiratory failure, ventilator dependent, tracheostomy status, thoracic aortic dissection, status post repair in 2018, congestive heart failure , Parkinson disease, dysphagia, G-tube, hypertension, anemia, was sent from the [facility] for evaluation. Patient apparently had placement of pacemaker recently done. Patient was sent for evaluation due to probable pacemaker site infection There was a pain in the area and redness. No documented fever or chills. Patient complained of the chest pain. Upon evaluation vital signs were stable. Laboratory work-up revealed leukocytosis WBC 12.4, hemoglobin 8.3, hematocrit 25.8, platelet count 345. Sedimentation rate 81. Sodium 134, potassium 4.8. BUN 64, creatinine 2.0. Lactic acid 0.5. Glucose 84. AST 44, ALT 67, alkaline phosphatase 999. Lipase within normal limits. Troponin negative. pro BNP 17678. EKG revealed atrial sensed paced rhythm , no acute changes. Albumin 3.4. Urinalysis revealed minimal pyuria few bacteria , +1 leukocyte esterase. Chest x-ray demonstrated retrocardiac consolidation . possibly pneumonia. Right basilar atelectasis. Left chest bifocal pacemaker. Tracheostomy. Patient started on the IV hydration, medicated for pain, pancultured and started on empiric antibiotic for infected pacemaker site Patient subsequently admitted for further management. CONSULTANTS: fabric designer Dr. Rooney fabric designer freight brake operator Dr. Lyle pulmonary Dr. Arora ID specialist Dr. Nino GI specialist Dr. Mccauley genetics teacher/oncologist Dr. Muhammad psychiatrist [facility]: Patient initially admitted to direct observational unit. Ventilator support and tracheostomy care provided. Pulmonary toilet maintained. Shortly afterwards patient desaturated . Ventilator setting adjusted based on ABG, and patient was transferred to ICU for further management. Venous duplex bilateral lower extremity revealed no evidence of acute DVT . Echocardiogram demonstrated preserved ejection fraction 60 to 65% with no evidence of left ventricular hypertrophy. No evidence of pericardial effusion. Moderate aortic regurgitation. Mild to moderate pulmonic regurgitation. No evidence of vegetation. Right ventricular systolic pressure of 38 consistent with a mild pulmonary hypertension. Chest ultrasound revealed 4.6 x 3.4 x 0.9 cm hypoechoic/anechoic area, overlying the left chest pacemaker power pack, possibly representing either a discrete fluid collection or a focal area of very edematous tissue. Infected fluid pocket was also possible. Patient continued to have leukocytosis. Blood culture revealed initially on admission Staph epidermidis on 10 6 a day of the admission. Urine culture was negative. Sputum culture revealed Acinetobacter and MRSA. Antibiotic regimen further optimized as per ID specialist recommendation. Repeated blood culture on were negative. Patient demonstrated acute hypoxic respiratory failure , requiring increase in AC rate and PEEP on ventilator. CXR showed diffuse patchy opacities in bilateral lungs, concerning for pneumonia versus pulmonary edema. Meticulous pulmonary toilet provided. Patient continued on antibiotics. Program Strategist and fabric designer freight brake operator closely followed. Pacemaker was interrogated , and patient was found to be not pacemaker dependent. Patient subsequently undergone on 11/26 removal of pacemaker power pack under fluoroscopy. ABBIE revealed no evidence of vegetation on any of the valves. Repeated blood cultures 11/27 were negative. Leukocytosis was decreasing. Follow up chest x-ray revealed some improvement in aeration. Per fabric designer, patient likely had sick sinus syndrome , but was stable for transfer to long-term care facility without pacemaker. Patient had to be closely monitored. If significant bradycardia noted , pacemaker would be replaced after infection completely cleared. Patient to be remained off beta-flori and all negative chronotropic/ chromotropic agents. Blood pressure was clsolry monitored and managed with current regimen. Ventilator support and tracheostomy care provided. Patient i was followed -up with ABG and chest x-ray. Strict aspiration precaution maintained. ABG improved. Last chest x-ray showed improvement in bilateral airspace opacity . DVT and GI prophylaxis provided. Renal parameters and electrolytes were closely monitored, electrolytes corrected as needed , and nephrotoxic's were avoided. Acute kidney injury, present on admission, resolved : creatinine from 2.0 down to 1.3. BUN from 64 down to 24. Electrolytes corrected prior to discharge, and all stable. Hemoglobin and hematocrit were closely monitored with goal to keep hemoglobin above 7. Patient undergone transfusion with 1 unit of packed red blood cells while in the hospital for hemoglobin 7.1 . Anemia work-up was consistent with anemia of chronic disease. Ferritin 202. No evidence of hemolysis noted. Peripheral smear reviewed. Epogen or iron were not particularly indicated. Prior to discharge hemoglobin 9.4, hematocrit 29.2. G-tube was noted to be clogged. G tube was subsequently replaced by GI specialist. Bedside swallow evaluation was done. Speech therapist recommended video swallow evaluation, which can be done as outpatient due to high risk for silent aspiration. Speech therapist also recommended to consider speaking valve evaluation, which could be done at the subacute facility. G-tube feeding with goal rate provided as per registered dietitian recommendation. G-tube site care provided. GI prophylaxis provided. Bowel regimen instituted. Abdominal ultrasound revealed normal liver echotexture and contour , no focal lesions. Ascites and pleural effusion noted. Mild thickening of the gallbladder wall, nonspecific and possibly secondary to ascites. No stones identified. Severe left hydronephrosis and cortical thinning. Leukocytosis trended down, fevers resolved. Patient will need to continue with antibiotic at the facility to complete the course. Patient clinically stabilized and was ready for discharge to subacute group home facility for continuation of care. FINAL DIAGNOSES: Sepsis with Staph epidermidis bacteremia Pacemaker pocket infection Status post removal of pacemaker power pack Acute on chronic hypoxemic respiratory failure VDRF, tracheostomy status Pneumonia Acute kidney injury-resolved Acute encephalopathy Dysphagia, feeding by G-tube G-tube malfunction, status post replacement Electrolyte imbalance Hypertension Anemia of chronic disease History of thoracic aortic dissection , status post repair 2018. DISCHARGE MEDICATIONS: See Medication Reconciliation list. DISCHARGE INSTRUCTIONS: Patient was discharged to the subacute group home facility. Closely monitor heart rate at the facility. If significant bradycardia noted. Patient may need reinsertion of pacemaker after infection cleared. Follow up with medical doctor and county historian at the facility. Yara Castro NP Dec 06, 2018 11:02
== END 2018-12-05 13:06 | DRG 180 ==
LOC: EDBD 18:55 → EMR 19:21 → 2W 20:27 → EDBEDREQ 21:57 → 2W 11-20 15:06 → ICU 11-23 13:11 → 2W 12-02 19:20
PROC: 5A1955Z Respiratory Ventilation, Greater than 96 Consecutive Hours (ICD-10-PCS; principal; 2018-11-18)
PROC: 02PA3MZ Removal of Cardiac Lead from Heart, Percutaneous Approach (ICD-10-PCS; 2018-11-26)
PROC: 0JPT3PZ Removal of Cardiac Rhythm Related Device from Trunk Subcutaneous Tissue and Fascia, Percutaneous Approach (ICD-10-PCS; 2018-11-26)
PROC: 0D20XUZ Change Feeding Device in Upper Intestinal Tract, External Approach (ICD-10-PCS; 2018-11-30)
DX: T82.7XXA Infection and inflammatory reaction due to other cardiac and vascular devices, implants and grafts, initial encounter (principal); J18.9 Pneumonia, unspecified organism; Z99.11 Dependence on respirator [ventilator] status; J96.10 Chronic respiratory failure, unspecified whether with hypoxia or hypercapnia; N17.9 Acute kidney failure, unspecified; A41.9 Sepsis, unspecified organism; Z93.0 Tracheostomy status; G93.40 Encephalopathy, unspecified; D64.9 Anemia, unspecified; I10 Essential (primary) hypertension; F41.9 Anxiety disorder, unspecified; E87.6 Hypokalemia; E87.1 Hypo-osmolality and hyponatremia; K94.23 Gastrostomy malfunction
CPT/HCPCS: 36415; 36600; 71045; 74018; 76000; 76604; 76700; 80048; 80053; 80061; 80202; 81001; 81003; 82270; 82378; 82550; 82607; 82728; 82746; 82803; 82977; 83036; 83540; 83550; 83605; 83615; 83690; 83735; 83880; 84100; 84133; 84300; 84439; 84443; 84484; 84550; 85007; 85025; 85044; 85060; 85610; 85651; 85730; 86140; 86850; 86900; 86901; 86920; 87040; 87070; 87075; 87081; 87086; 87181; 87205; 89050; 93005; 93306; 93312; 93970; 94002; 94003; 94150; 94640; 94664; 96361; 96365; 96368; 96375; 99285; J2250; J2405; J7030; J7620; J8499

== ENCOUNTER 2019-09-15 02:08 | Inpatient (IN) | payer MEDICAID ==
[~2019-09-15] VITALS: Ht 165.1 cm; Wt 56.8 kg
[2019-09-15] VITALS (8 sets, daily range): BP systolic 131–159; BP diastolic 61–110
[~2019-09-15 02:08] MED LIST changes: +AMIODARONE HCL200 MG ORAL; +CARVEDILOL3.125 MG ORAL; +COLACE100 MG GT; +DULCOLAX10 MG RC; +FLEET ENEMA133 ML RECTAL; +GLYCOPYRROLATE1 MG GT; +HEPARIN SO5000 UNIT2 SUBQ; +HYDRALAZINE HC100 MG ORAL; +ISOSORBIDE DINI40 MG GT; +KLONOPIN1 MG GT; +MELATONIN3 MG GT; +MERREM1 GM IV; +METOCLOPRA10 MG/10 M ORAL; +MILK OF MA400 MG/51 GT; +NORCO 10-325 T1 EACH GT; +SENNA8.6 M2 GT; +VANCOMYCIN750 MG/150 IV; +ZOLOFT100 MG GT; +ZYPREXA7.5 MG GT
--- NOTE | 2019-09-15 02:24 | Emergency Room Report ---
History of Present Illness General Chief Complaint: Chest Pain Source: Patient, Medical Record Present Illness HPI This a 48-year-old female with a history of schizophrenia, COPD, respiratory failure status post tracheostomy. She presents with chief complaint of shortness of breath and chest pain. She woke up with bleeding from her mouth and lip. She then complained of feeling short of breath and chest pain. [facility] called 911. Service Dismantler gave her aspirin and nitroglycerin. No relief. Patient denies any trauma. No seizure history. Nothing made it better. Nothing made it worse. Denies any other complaint. History limited because patient has tracheostomy. Allergies: Coded 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-19 Testing performed [employer] GRADER: Yes COVID-19 Screening: Negative COVID-19 COVID-19 Testing Source: earlier in August from [facility] Patient History Past Medical History: see triage record, old chart reviewed, AFib, COPD Past Surgical History: other Pertinent Family History: none Social History: Denies: smoking Now: No Immunizations: other Reviewed Nursing Documentation: PMH: Agreed; PSxH: Agreed Nursing Documentation-PMH Hx Cardiac Problems: Yes Hx Hypertension: Yes Hx Pacemaker: Yes - Left upper chest Hx Cancer: No Hx Gastrointestinal Problems: No Hx Neurological Problems: Yes Hx Cerebrovascular Accident: No Hx Transient Ischemic Attacks: No Hx Dementia: No Hx Alzheimer's Disease: No Hx Parkinson's Disease: Yes Hx Meningitis: No Hx Encephalitis: No Hx Dysphasia: Yes Review of Systems Eye: Denies: eye pain, blurred vision ENT: Denies: ear pain, nose congestion, throat swelling Respiratory: Reports: shortness of breath; Denies: cough Cardiovascular: Reports: chest pain; Denies: palpitations Gastrointestinal: Denies: abdominal pain, diarrhea, nausea, vomiting Musculoskeletal: Denies: back pain, joint pain Skin: Denies: rash Neurological: Denies: headache, numbness Endocrine: Denies: increased thirst, increased urine Hematologic/Lymphatic: Denies: easy bruising All Other Systems: negative except mentioned in HPI Physical Exam Vital Signs Date Time Temp Pulse Resp B/P (MAP) Pulse Ox O2 Delivery O2 Flow Rate FiO2 09/15/19 02:08 73 20 153/68 (96) 99 Room Air Vitals with high blood pressure Sp02 EP Interpretation: reviewed, normal General Appearance: alert, cachetic, Chronically Ill Head: normocephalic, atraumatic Eyes: bilateral eye PERRL, bilateral eye EOMI ENT: hearing grossly normal, normal pharynx, other - Patient has small skin tear to her lower lip midline. Also has a nonbleeding skin tear on the bucca mucosa on the right side. There is no tongue laceration. There is no active bleeding inside the mouth. Neck: full range of motion, supple, no meningismus, tracheotomy - There is slight bleeding inside the tracheostomy tube. Respiratory: chest non-tender, accessory muscle use, rhonchi, wheezing Cardiovascular #1: regular rate, rhythm, no murmur Gastrointestinal: normal bowel sounds, non tender, no mass, no organomegaly, no bruit, non-distended Musculoskeletal: back normal, normal range of motion Neurologic: pot press operator III-XII nml as tested, oriented x3 Psychiatric: anxious Procedures Critical Care Time Critical Care Time Critical care is mandated in this patient who presented with acute on chronic respiratory failure secondary to pneumonia. Patient require my urgent intervention to attenuate the risks of metabolic collapse which may lead to cardiovascular collapse and . Critical care time is 35 minutes excluding any reportable procedure. Critical care time included evaluation, multiple reevaluation, looking at old charts, interpreting laboratory and diagnostic data , discussing case with patient and family and consultants, and charting. Medical Decision Making Diagnostic Impression: Primary Impression: Sepsis Qualified Codes: A41.9 - Sepsis, unspecified organism; R65.20 - Severe sepsis without septic shock; N17.9 - Acute kidney failure, unspecified Additional Impressions: HCAP (healthcare-associated pneumonia) Respiratory failure, acute and chronic Qualified Codes: J96.20 - Acute and chronic respiratory failure, unspecified whether with hypoxia or hypercapnia UTI (urinary tract infection) Qualified Codes: N30.00 - Acute cystitis without hematuria ACS (acute coronary syndrome) ARF (acute renal failure) Qualified Codes: N17.9 - Acute kidney failure, unspecified Hypokalemia Anemia Qualified Codes: D64.9 - Anemia, unspecified Abrasion of lip, initial encounter Proteinuria Qualified Codes: R80.9 - Proteinuria, unspecified COPD with exacerbation ER Course This patient presents with chest pain and shortness of breath. She has acute on chronic respiratory failure. Chest x-ray show bilateral infiltrate mostly right side. This appear to be worse when compared to chest x-ray from 6 months ago. Wide spectrum antibiotic started. Patient is tolerating oxygen via blow- by. Oxygenation improved with antibiotics and fluid. Will admit for further work-up. I contacted Dr. Dong for admission. EKG Diagnostic Results Rate: normal Rhythm: NSR ST Segments: other - NSST changes Rhythm Strip Diag. Results EP Interpretation: yes Rate: 68 Rhythm: NSR, no PVC's, no ectopy Chest X-Ray Diagnostic Results Chest X-Ray Diagnostic Results : Chest X-Ray Ordered: Yes # of Views/Limited/Complete: 1 View Indication: Shortness of Breath EP Interpretation: Yes Interpretation: no effusion, no pneumothorax, other - Rt lungs infiltrates Impression: Other - b/l infiltrates, rt > left Electronically Signed by: Adebayo Santamaria MD Last Vital Signs Date Time Temp Pulse Resp B/P (MAP) Pulse Ox O2 Delivery O2 Flow Rate FiO2 8/2/20 02:08 73 20 153/68 (96) 99 Room Air Status: improved Disposition: ADMITTED INPATIENT Condition: Serious Adebayo Santamaria MD Sep 15, 2019 02:24
[2019-09-15] MEDS ORDERED: Solu-MEDROL 125mg Inj IVP ONE (02:30)
[2019-09-15] MEDS ORDERED: Albuterol ud Inhalation HHN ONE (02:30)
[2019-09-15] MEDS ORDERED: TYLENOL325 M1 GT (02:54)
[2019-09-15] MEDS ORDERED: CARDIZEM60 MG GT (02:54)
[2019-09-15] MEDS ORDERED: ATROVENT HFA12.9 GM IH (02:54)
[2019-09-15] MEDS ORDERED: LOPID600 MG GT (02:56)
[2019-09-15] MEDS ORDERED: OXYCODONE HCL5 M2 GT (02:56)
[2019-09-15] MEDS ORDERED: PROVENTIL HFA6.7 G1 IH (02:56)
--- NOTE | 2019-09-15 02:57 | Diagnostic Imaging Report ---
EXAM: XR Chest, 1 View CLINICAL HISTORY: CP TECHNIQUE: Frontal view of the chest. COMPARISON: Chest radiograph December 02, 2018 FINDINGS/IMPRESSION: Midline tracheostomy. Median sternotomy wires. Bilateral airspace opacities, preferentially involving the right lung, consistent with multifocal infiltrate. Trace bilateral pleural effusions. No pneumothorax. Cardiomegaly.
[2019-09-15 02:58] LABS: HEMATOCRIT 20.1 % (37.0-47.0); HEMOGLOBIN 7.2 G/DL (12.0-16.0); MEAN CORPUSCULAR VOLUME 92 FL (80-99); PLATELET COUNT 521 K/UL (150-450); RED BLOOD COUNT 2.18 M/UL (4.20-5.40); RED CELL DISTRIBUTION WIDTH 14.8 % (11.6-14.8); WHITE BLOOD COUNT 12.4 K/UL (4.8-10.8)
[2019-09-15 02:59] LABS: APPEARANCE,URINE VERY CLOUDY; BILIRUBIN, URINE NEGATIVE (NEGATIVE); COLOR,URINE RED; GLUCOSE, URINE (UA) NEGATIVE (NEGATIVE); KETONES,URINE NEGATIVE (NEGATIVE); LEUKOCYTE ESTERASE ,URINE 3+ (NEGATIVE); NITRITE,URINE NEGATIVE (NEGATIVE); PH,URINE 6 (4.5-8.0); PROTEIN,URINE 3+ (NEGATIVE); UROBILINOGEN,URINE NORMAL MG/DL (0.0-1.0)
[2019-09-15 03:06] LABS: INR 1.1 (0.9-1.1)
[2019-09-15 03:10] LABS: ALANINE AMINOTRANSFERASE 17 U/L (12-78); ALBUMIN 2.8 G/DL (3.4-5.0); ALBUMIN/GLOBULIN RATIO 0.5 (1.0-2.7); ALKALINE PHOSPHATASE 224 U/L (46-116); ANION GAP 15 mmol/L (5-15); ASPARTATE AMINO TRANSFERASE 25 U/L (15-37); BILIRUBIN,TOTAL 0.3 MG/DL (0.2-1.0); BLOOD UREA NITROGEN 188 mg/dL (7-18); CALCIUM 9.9 MG/DL (8.5-10.1); CARBON DIOXIDE 25 MMOL/L (21-32); CHLORIDE 83 MMOL/L (98-107); CREATININE 2.9 MG/DL (0.55-1.30); POTASSIUM 2.7 MMOL/L (3.5-5.1); SODIUM 124 MMOL/L (136-145)
[2019-09-15] MEDS ORDERED: Cefepime HCl 1 GM in D5W 55 ML IVPB ONE (03:30)
--- NOTE | 2019-09-15 03:40 | Emergency Room Report ---
Sepsis Event Note Evaluation Current Stage of Sepsis: Sepsis Possible Source: Pulmonary, GI Tract/Intra-Abdominal Focused Exam Allergies: Coded Allergies: No Known Allergies (Unverified , 10/10/17) Date Exam Occurred: Sep 15, 2019 Time Exam Occurred: 03:40 Laboratory Studies Laboratory Tests Test 09/15/19 02:15 09/15/19 02:30 Urine Color Red Urine Appearance Very cloudy Urine pH 6 (4.5-8.0) Urine Specific [place] 1.005 (1.005-1.035) Urine Protein 3+ (NEGATIVE) H Urine Glucose (UA) Negative (NEGATIVE) Urine Ketones Negative (NEGATIVE) Urine Blood 5+ (NEGATIVE) H Urine Nitrite Negative (NEGATIVE) Urine Bilirubin Negative (NEGATIVE) Urine Urobilinogen Normal MG/DL (0.0-1.0) Urine Leukocyte Esterase 3+ (NEGATIVE) H Urine RBC Tntc /HPF (0 - 2) H Urine WBC Tntc /HPF (0 - 2) H Urine Squamous Epithelial Cells Few /LPF (NONE/OCC) Urine Bacteria Many /HPF (NONE) H White Blood Count 12.4 K/UL (4.8-10.8) H Red Blood Count 2.18 M/UL (4.20-5.40) L Hemoglobin 7.2 G/DL (12.0-16.0) L Hematocrit 20.1 % (37.0-47.0) L Mean Corpuscular Volume 92 FL (80-99) Mean Corpuscular Hemoglobin 32.8 PG (27.0-31.0) H Mean Corpuscular Hemoglobin Concent 35.6 G/DL (32.0-36.0) Red Cell Distribution Width 14.8 % (11.6-14.8) Platelet Count 521 K/UL (150-450) H Mean Platelet Volume 4.6 FL (6.5-10.1) L Neutrophils (%) (Auto) % (45.0-75.0) Lymphocytes (%) (Auto) % (20.0-45.0) Monocytes (%) (Auto) % (1.0-10.0) Eosinophils (%) (Auto) % (0.0-3.0) Basophils (%) (Auto) % (0.0-2.0) Differential Total Cells Counted 100 Neutrophils % (Manual) 73 % (45-75) Lymphocytes % (Manual) 22 % (20-45) Monocytes % (Manual) 2 % (1-10) Eosinophils % (Manual) 3 % (0-3) Basophils % (Manual) 0 % (0-2) Band Neutrophils 0 % (0-8) Platelet Estimate Increased H Platelet Morphology Normal Anisocytosis 1+ Prothrombin Time 12.0 SEC (9.30-11.50) H Prothromb Time International Ratio 1.1 (0.9-1.1) Activated Partial Thromboplast Time 27 SEC (23-33) Sodium Level 124 MMOL/L (136-145) L Potassium Level 2.7 MMOL/L (3.5-5.1) *L Chloride Level 83 MMOL/L (98-107) L Carbon Dioxide Level 25 MMOL/L (21-32) Anion Gap 15 mmol/L (5-15) Blood Urea Nitrogen 188 mg/dL (7-18) H Creatinine 2.9 MG/DL (0.55-1.30) H Estimat Glomerular Filtration Rate 17.4 mL/min (>60) Glucose Level 111 MG/DL (74-106) H Calcium Level 9.9 MG/DL (8.5-10.1) Total Bilirubin 0.3 MG/DL (0.2-1.0) Aspartate Amino Transf (AST/SGOT) 25 U/L (15-37) Alanine Aminotransferase (ALT/SGPT) 17 U/L (12-78) Alkaline Phosphatase 224 U/L (46-116) H Troponin I 0.015 ng/mL (0.000-0.056) Total Protein 8.2 G/DL (6.4-8.2) Albumin 2.8 G/DL (3.4-5.0) L Globulin 5.4 g/dL Albumin/Globulin Ratio 0.5 (1.0-2.7) L Vital Signs Last 24 Hour Vital Signs Date Time Temp Pulse Resp B/P (MAP) Pulse Ox O2 Delivery O2 Flow Rate FiO2 09/15/19 02:41 98 Trach Collar 10.0 40 09/15/19 02:15 71 20 153/68 99 Trach Collar 09/15/19 02:15 73 20 Room Air 09/15/19 02:08 73 20 153/68 (96) 99 Room Air Respiratory Exam: Rhonchi Cardiovascular Exam: RRR Capillary Refill: Less Than 2 Seconds Peripheral Pulse: Strong Pulse Location: Radial Skin Exam: Normal Turgor Adebayo Santamaria MD Sep 15, 2019 03:40
[2019-09-15] MEDS ORDERED: Morphine Sulfate 4mg/ml Inj (IV USE ONLY) IVP ONE (03:45)
[2019-09-15] MEDS ORDERED: Naloxone 1mg/ml 2ml ONE (04:16)
[2019-09-15] MEDS ORDERED: oxyCODONE 5mg IR tab GT PRN (07:30)
[2019-09-15] MEDS: HYDROcodone/Acetamin 10/325 tab GT PRN ×2 (07:58→22:25)
[2019-09-15] MEDS: HydrALAZINE 50mg tab GT SCH ×3 (08:00→21:22)
[2019-09-15] MEDS ORDERED: Vitamin D 1000 IU Tab GT SCH (09:00)
[2019-09-15] MEDS: OLANZapine 2.5mg tab GT SCH (09:06)
[2019-09-15] MEDS: Metoprolol Tartrate 50mg tab GT SCH ×2 (09:06→21:21)
[2019-09-15] MEDS: clonazePAM 0.5mg tab GT SCH ×2 (09:06→21:21)
[2019-09-15] MEDS: Docusate 100mg/10ml Liq GT SCH (09:07)
[2019-09-15] MEDS: Heparin 5000 units/ml inj SUBQ SCH ×2 (09:09→21:18)
[2019-09-15 09:29] LABS: ALANINE AMINOTRANSFERASE 17 U/L (12-78); ANION GAP 17 mmol/L (5-15); ASPARTATE AMINO TRANSFERASE 24 U/L (15-37); BLOOD UREA NITROGEN 183 mg/dL (7-18); CALCIUM 9.7 MG/DL (8.5-10.1); CARBON DIOXIDE 23 MMOL/L (21-32); CHLORIDE 85 MMOL/L (98-107); CREATININE 2.8 MG/DL (0.55-1.30); POTASSIUM 3.1 MMOL/L (3.5-5.1); SODIUM 125 MMOL/L (136-145)
[2019-09-15 09:49] LABS: HEMOGLOBIN 7.9 G/DL (12.0-16.0); MEAN CORPUSCULAR VOLUME 93 FL (80-99); PLATELET COUNT 538 K/UL (150-450); RED BLOOD COUNT 2.48 M/UL (4.20-5.40); RED CELL DISTRIBUTION WIDTH 14.6 % (11.6-14.8); WHITE BLOOD COUNT 11.1 K/UL (4.8-10.8)
--- NOTE | 2019-09-15 10:25 | Diagnostic Imaging Report ---
EXAM: XR Chest, 1 View CLINICAL HISTORY: COUGH TECHNIQUE: Frontal view of the chest. COMPARISON: Chest x-ray dated 09/15/2019 at 2:28 AM FINDINGS: Lungs: Persistent patchy pulmonary opacities and interstitial markings, most prominent at the right mid and upper lung. Pleural space: Unremarkable. The costophrenic angles are sharp. No visible pneumothorax. Heart: Cardiomegaly. Mediastinum: Unremarkable. Bones/joints: Patient is status post median sternotomy. Osseous structures otherwise appear intact. Tubes, lines and devices: Stable positioning of the tracheostomy tube. IMPRESSION: 1. No significant interval change from the prior chest x-ray. 2. Persistent patchy pulmonary opacities and interstitial markings, most prominent at the right mid and upper lung. 3. Cardiomegaly.
[2019-09-15] MEDS: oxyCODONE 5mg IR tab GT PRN ×2 (10:29→15:34)
[2019-09-15] MEDS ORDERED: Ipratropium Bromide Inhaler INH SCH (12:00)
[2019-09-15] MEDS ORDERED: Albuterol 90mcg Inhaler 8gm INH SCH (12:00)
[2019-09-15] MEDS: dilTIAZem HCl 60mg tab GT SCH ×3 (12:19→23:57)
--- NOTE | 2019-09-15 12:43 | Consultation ---
History of Present Illness General Date patient seen: Sep 15, 2019 Reason for Hospitalization: Chest Pain Present Illness HPI This a 48-year-old female with a history of schizophrenia, COPD, respiratory failure status post tracheostomy who is well-known to me from prior admissions and care including [facility].. She presents with chief complaint of shortness of breath and chest pain. She woke up with bleeding from her mouth and lip. She then complained of feeling short of breath and chest pain. [facility] called 911. Biomass Facilitator gave her aspirin and nitroglycerin. No relief. Patient denies any trauma. No seizure history. Nothing made it better. Nothing made it worse. Denies any other complaint. History limited because patient has tracheostomy. I had to do emergency revision tracheostomy and bronchoscopy in her in the past. She is had a history of significant tracheal bleeding is been transferred to higher level of care including [facility] for hemostasis in the past and since has improved. She is had renal insufficiency prior on hemodialysis through multiple sites. Surgery was called to evaluate and assist with care. Patient was seen, patient was evaluated, chart was reviewed Allergies: Coded Allergies: No Known Allergies (Unverified , 10/10/17) COVID-19 Screening Contact w/high risk pt: Yes Experienced COVID-19 symptoms?: No Medication History Scheduled Amlodipine Besylate (Norvasc), 10 MG GT DAILY, (Reported) Clonazepam* (Klonopin*), 1 MG GT Q12HR, (Reported) Diltiazem Hcl* (Cardizem*), 90 MG GT EVERY 6 HOURS, (Reported) Docusate Sodium* (Colace*), 100 MG GT DAILY, (Reported) Gemfibrozil* (Lopid*), 500 MG GT TWICE A DAY, (Reported) Glycopyrrolate (Glycopyrrolate), 1 MG GT THREE TIMES A DAY, (Reported) Heparin Sod (Porcine) (Heparin Sodium*), 5,000 UNITS SUBQ EVERY 8 HOURS, ( Reported) Hydralazine Hcl* (Hydralazine Hcl*), 100 MG ORAL EVERY 8 HOURS, (Reported) Magnesium Hydroxide* (Milk Of Magnesia*), 30 ML GT DAILY, (Reported) Meropenem (Merrem), 1 GM IV EVERY 12 HOURS Metoprolol Tartrate* (Metoprolol Tartrate*), 50 MG GT EVERY 12 HOURS, (Reported) Olanzapine (Zyprexa), 7.5 MG GT DAILY, (Reported) Sennosides (Senna), 8.6 MG GT BEDTIME, (Reported) Sertraline Hcl* (Zoloft*), 100 MG GT DAILY, (Reported) Vancomycin In Dextrose,Iso-Osm (Vancomycin 750 Mg/150 Ml Bag), 750 MG IV DAILY Scheduled PRN Bisacodyl (Dulcolax), 10 MG RC DAILY PRN for Constipation, (Reported) Hydrocodone Bit/Acetaminophen 10-325* ([place] 10-325*), 1 TAB GT Q6H PRN for For Pain, (Reported) Melatonin (Melatonin), 6 MG GT BEDTIME PRN for Insomnia, (Reported) Metoclopramide Hcl* (Metoclopramide Hcl*), 10 MG ORAL EVERY 6 HOURS PRN for Nausea & Vomiting, (Reported) Na Phos,M-B/Na Phos,Di-Ba* (Fleet Enema*), 133 ML RECTAL DAILY PRN for Constipation, (Reported) Oxycodone Hcl* (Oxycodone Hcl*), 5 MG GT Q4H PRN for For Pain, (Reported) Miscellaneous Medications Acetaminophen (Tylenol), 325 MG GT, (Reported) Albuterol Sulfate (Proventil Hfa), 6.7 GM IH, (Reported) Ipratropium [place] (Atrovent Hfa), 12.9 GM IH, (Reported) Patient History Limited by: medical condition History Provided By: Patient, PMD Healthcare decision maker Resuscitation status Advanced Directive on File Past Medical/Surgical History Past Medical/Surgical History: (1) Tracheostomy in place (2) Feeding by G-tube (3) JAVIER (acute kidney injury) (4) Chronic respiratory failure (5) Bacteremia (6) Pacemaker (7) Acute encephalopathy (8) Aortic dissection, thoracic (9) GT CLOGGED (10) Hypernatremia (11) Ascites (12) Pleural effusion (13) Elevated alkaline phosphatase level (14) Anemia (15) Proteinuria (16) UTI (urinary tract infection) (17) ARF (acute renal failure) (18) ACS (acute coronary syndrome) (19) Respiratory failure, acute and chronic (20) HCAP (healthcare-associated pneumonia) (21) Abrasion of lip, initial encounter (22) COPD with exacerbation (23) Hypokalemia (24) Sepsis Review of Systems Review of Symptoms General ROS: no weight loss or fever Psychological ROS: no depression or mood changes, no memory loss Ophthalmic ROS: no visual changes or eye irritation ENT ROS: no nasal congestion, hearing loss, dizziness Allergy and Immunology ROS: no allergic symptoms or urticaria Hematological and Lymphatic ROS: no swollen glands, unusual bleeding or bruising Endocrine ROS: no polyuria, polydipsia, weight changes, temperature intolerance Respiratory ROS: no cough, shortness of breath, or wheezing Cardiovascular ROS: no chest pain or dyspnea on exertion Gastrointestinal ROS: denies abdominal pain, bright red blood in stool. Musculoskeletal ROS: no myalgias or arthralgias Neurological ROS: no TIA or stroke symptoms Dermatological ROS: no new or changing skin lesions, rashes or pruritis Physical Exam Physical Exam General appearance: alert, cooperative, no distress, appears stated age Head: Normocephalic, without obvious abnormality, atraumatic Eyes: conjunctivae/corneas clear. PERRL, EOM's intact. Fundi benign Throat: Lips, mucosa, and tongue normal. Teeth and gums normal trach stable dressings intact Neck: supple, symmetrical, trachea midline, no adenopathy, thyroid: not enlarged, symmetric, no tenderness/mass/nodules, no carotid bruit and no JVD Lungs: Decreased bilaterally Heart: regular rate and rhythm, S1, S2 normal, no murmur, click, rub or gallop Abdomen: soft, non-tender. Bowel sounds normal. No masses, no organomegaly tube okay Extremities: extremities normal, atraumatic, no cyanosis or edema wound stable Pulses: 2+ and symmetric Skin: Skin color, texture, turgor normal. No rashes or lesions Neurologic: Grossly normal Last 24 Hour Vital Signs Date Time Temp Pulse Resp B/P (MAP) Pulse Ox O2 Delivery O2 Flow Rate FiO2 09/15/19 12:19 72 151/71 09/15/19 09:06 72 151/71 09/15/19 09:06 72 151/71 09/15/19 08:00 97.0 72 22 151/71 (97) 96 09/15/19 08:00 72 09/15/19 08:00 99/62 09/15/19 06:00 Trach Collar 10.0 8/2/20 05:43 69 09/15/19 05:43 96.8 76 19 159/72 (101) 94 09/15/19 05:25 98.9 68 17 131/96 98 Trach Collar 10.0 40 09/15/19 05:00 98.9 68 17 131/89 98 Trach Collar 10.0 40 09/15/19 04:09 98.9 09/15/19 04:06 98.9 69 17 159/110 98 Trach Collar 10.0 40 09/15/19 02:41 98 Trach Collar 10.0 40 09/15/19 02:15 71 20 153/68 99 Trach Collar 09/15/19 02:15 73 20 Room Air 09/15/19 02:08 73 20 153/68 (96) 99 Room Air Intake and Output 09/14/19 09/15/19 19:00 07:00 Intake Total 100 ml Balance 100 ml Intake Free Water 100 ml Laboratory Tests Test 09/15/19 02:15 09/15/19 02:30 09/15/19 03:30 09/15/19 08:45 Urine Color Red Urine Appearance Very cloudy Urine pH 6 (4.5-8.0) Urine Specific [place] 1.005 (1.005-1.035) Urine Protein 3+ (NEGATIVE) H Urine Glucose (UA) Negative (NEGATIVE) Urine Ketones Negative (NEGATIVE) Urine Blood 5+ (NEGATIVE) H Urine Nitrite Negative (NEGATIVE) Urine Bilirubin Negative (NEGATIVE) Urine Urobilinogen Normal MG/DL (0.0-1.0) Urine Leukocyte Esterase 3+ (NEGATIVE) H Urine RBC Tntc /HPF (0 - 2) H Urine WBC Tntc /HPF (0 - 2) H Urine Squamous Epithelial Cells Few /LPF (NONE/OCC) Urine Bacteria Many /HPF (NONE) H White Blood Count 12.4 K/UL (4.8-10.8) H 11.1 K/UL (4.8-10.8) H Red Blood Count 2.18 M/UL (4.20-5.40) L 2.48 M/UL (4.20-5.40) L Hemoglobin 7.2 G/DL (12.0-16.0) L 7.9 G/DL (12.0-16.0) L Hematocrit 20.1 % (37.0-47.0) L 23.0 % (37.0-47.0) L Mean Corpuscular Volume 92 FL (80-99) 93 FL (80-99) Mean Corpuscular Hemoglobin 32.8 PG (27.0-31.0) H 32.0 PG (27.0-31.0) H Mean Corpuscular Hemoglobin Concent 35.6 G/DL (32.0-36.0) 34.4 G/DL (32.0-36.0) Red Cell Distribution Width 14.8 % (11.6-14.8) 14.6 % (11.6-14.8) Platelet Count 521 K/UL (150-450) H 538 K/UL (150-450) H Mean Platelet Volume 4.6 FL (6.5-10.1) L 4.4 FL (6.5-10.1) L Neutrophils (%) (Auto) % (45.0-75.0) % (45.0-75.0) Lymphocytes (%) (Auto) % (20.0-45.0) % (20.0-45.0) Monocytes (%) (Auto) % (1.0-10.0) % (1.0-10.0) Eosinophils (%) (Auto) % (0.0-3.0) % (0.0-3.0) Basophils (%) (Auto) % (0.0-2.0) % (0.0-2.0) Differential Total Cells Counted 100 100 Neutrophils % (Manual) 73 % (45-75) 93 % (45-75) H Lymphocytes % (Manual) 22 % (20-45) 5 % (20-45) L Monocytes % (Manual) 2 % (1-10) 2 % (1-10) Eosinophils % (Manual) 3 % (0-3) 0 % (0-3) Basophils % (Manual) 0 % (0-2) 0 % (0-2) Band Neutrophils 0 % (0-8) 0 % (0-8) Platelet Estimate Increased H Adequate Platelet Morphology Normal Normal Anisocytosis 1+ Prothrombin Time 12.0 SEC (9.30-11.50) H Prothromb Time International Ratio 1.1 (0.9-1.1) Activated Partial Thromboplast Time 27 SEC (23-33) Sodium Level 124 MMOL/L (136-145) L 125 MMOL/L (136-145) L Potassium Level 2.7 MMOL/L (3.5-5.1) *L 3.1 MMOL/L (3.5-5.1) L Chloride Level 83 MMOL/L (98-107) L 85 MMOL/L (98-107) L Carbon Dioxide Level 25 MMOL/L (21-32) 23 MMOL/L (21-32) Anion Gap 15 mmol/L (5-15) 17 mmol/L (5-15) H Blood Urea Nitrogen 188 mg/dL (7-18) H 183 mg/dL (7-18) H Creatinine 2.9 MG/DL (0.55-1.30) H 2.8 MG/DL (0.55-1.30) H Estimat Glomerular Filtration Rate 17.4 mL/min (>60) 18.2 mL/min (>60) Glucose Level 111 MG/DL (74-106) H 133 MG/DL (74-106) H Calcium Level 9.9 MG/DL (8.5-10.1) 9.7 MG/DL (8.5-10.1) Total Bilirubin 0.3 MG/DL (0.2-1.0) Aspartate Amino Transf (AST/SGOT) 25 U/L (15-37) 24 U/L (15-37) Alanine Aminotransferase (ALT/SGPT) 17 U/L (12-78) 17 U/L (12-78) Alkaline Phosphatase 224 U/L (46-116) H Troponin I 0.015 ng/mL (0.000-0.056) Total Protein 8.2 G/DL (6.4-8.2) Albumin 2.8 G/DL (3.4-5.0) L Globulin 5.4 g/dL Albumin/Globulin Ratio 0.5 (1.0-2.7) L Lactic Acid Level 0.50 mmol/L (0.4-2.0) Hypochromasia 3+ Spherocytes 2+ Microbiology Date/Time Source Procedure Growth Status 09/15/19 02:15 Nasopharynx SARS-CoV-2 RdRp Gene Assay - Final Complete Height (Feet): 5 Height (Inches): 5.00 Weight (Pounds): 120 Medications Current Medications Medications (Trade) Dose Ordered Sig/Penny Route PRN Reason Start Time Stop Time Status Last Admin Dose Admin Acetaminophen/ Hydrocodone Bitart ([place] 10/325) 1 tab Q6H PRN GT For Pain 09/15/19 07:30 09/22/19 07:29 09/15/19 07:58 Albuterol/ Ipratropium (Albuterol/ Ipratropium) 3 ml Q6HRT HHN 09/15/19 13:00 09/20/19 12:59 Amlodipine Besylate (Norvasc) 10 mg DAILY GT 09/15/19 09:00 10/15/19 08:59 09/15/19 09:06 Cefepime HCl 1 gm/ Dextrose 55 ml @ 110 mls/hr Q12H IVPB 09/15/19 15:00 09/22/19 14:59 Clonazepam (KlonoPIN) 0.5 mg Q12HR GT 09/15/19 09:00 09/22/19 08:59 09/15/19 09:06 Diltiazem HCl (Cardizem Tab) 60 mg EVERY 6 HOURS GT 09/15/19 12:00 10/15/19 11:59 09/15/19 12:19 Docusate Sodium (Colace) 100 mg DAILY GT 09/15/19 09:00 10/15/19 08:59 09/15/19 09:07 Gemfibrozil (Lopid) 600 mg TWICE A DAY GT 09/15/19 09:00 10/15/19 08:59 09/15/19 09:06 Heparin Sodium (Porcine) (Heparin 5000 units/ml) 5,000 units EVERY 12 HOURS SUBQ 09/15/19 09:00 10/30/19 08:59 09/15/19 09:09 Hydralazine HCl (Apresoline) 50 mg Q8HR GT 09/15/19 08:00 12/14/19 07:59 Levofloxacin 50 ml @ 50 mls/hr Q24H IVPB 09/15/19 21:00 09/22/19 20:59 Metoprolol Tartrate (Lopressor) 50 mg EVERY 12 HOURS GT 09/15/19 09:00 12/14/19 08:59 09/15/19 09:06 Olanzapine (ZyPREXA) 2.5 mg DAILY GT 09/15/19 09:00 10/30/19 08:59 09/15/19 09:06 Oxycodone HCl (Roxicodone) 5 mg Q4H PRN GT Severe Pain (Pain Scale 7-10) 09/15/19 08:30 09/22/19 08:29 09/15/19 10:29 Sertraline HCl (Zoloft) 100 mg BEDTIME GT 09/15/19 21:00 10/15/19 20:59 Sodium Chloride 1,000 ml @ 100 mls/hr Q10H IV 09/15/19 09:00 10/15/19 08:59 09/15/19 08:22 Vitamin D (Vitamin D) 5,000 intlu DAILY GT 09/15/19 09:00 10/15/19 08:59 09/15/19 09:10 Assessment/Plan Problem List: (1) Anemia ICD Codes: D64.9 - Anemia, unspecified SNOMED: 793704518, 109332327 Qualifiers: Qualified Codes: D64.9 - Anemia, unspecified (2) Proteinuria ICD Codes: R80.9 - Proteinuria, unspecified SNOMED: 12974707, 191425141 Qualifiers: Qualified Codes: R80.9 - Proteinuria, unspecified (3) UTI (urinary tract infection) ICD Codes: N39.0 - Urinary tract infection, site not specified SNOMED: 14365926, 039335970 Qualifiers: Qualified Codes: N30.00 - Acute cystitis without hematuria (4) ARF (acute renal failure) ICD Codes: N17.9 - Acute kidney failure, unspecified SNOMED: 58497268, 685088528 Qualifiers: Qualified Codes: N17.9 - Acute kidney failure, unspecified (5) ACS (acute coronary syndrome) ICD Codes: I24.9 - Acute ischemic heart disease, unspecified SNOMED: 290736285, 571735581 (6) Respiratory failure, acute and chronic ICD Codes: J96.20 - Acute and chronic respiratory failure, unspecified whether with hypoxia or hypercapnia SNOMED: 67244570, 659088199 Qualifiers: Qualified Codes: J96.20 - Acute and chronic respiratory failure, unspecified whether with hypoxia or hypercapnia (7) HCAP (healthcare-associated pneumonia) ICD Codes: J18.9 - Pneumonia, unspecified organism SNOMED: 044203016, 390279656 (8) Abrasion of lip, initial encounter ICD Codes: S00.511A - Abrasion of lip, initial encounter SNOMED: 875424748, 79439053 (9) COPD with exacerbation ICD Codes: J44.1 - Chronic obstructive pulmonary disease with (acute) exacerbation SNOMED: 801972339, 13063269 (10) Hypokalemia ICD Codes: E87.6 - Hypokalemia SNOMED: 61878654 (11) Sepsis Assessment & Plan: Leukocytosis, anemia, abnormal labs. Renal insufficiency potentially dehydrated Abnormal LFTs alk phos elevated Urine noted significant bacteria likely UTI etiology Wound stable still requiring local care IV antibiotics per infectious disease Discussed with chemistry tutor Dr. Berkowitz air mattress turn q2h nutritional tf will follow with recs thank you ICD Codes: A41.9 - Sepsis, unspecified organism SNOMED: 40336019 Qualifiers: Qualified Codes: A41.9 - Sepsis, unspecified organism; R65.20 - Severe sepsis without septic shock; N17.9 - Acute kidney failure, unspecified (12) Chronic respiratory failure ICD Codes: J96.10 - Chronic respiratory failure, unspecified whether with hypoxia or hypercapnia SNOMED: 13031021 (13) Ascites ICD Codes: R18.8 - Other ascites SNOMED: 442829206 (14) Bacteremia ICD Codes: R78.81 - Bacteremia SNOMED: 2795918 (15) Hypernatremia ICD Codes: E87.0 - Hyperosmolality and hypernatremia SNOMED: 095055882 (16) Pleural effusion ICD Codes: J90 - Pleural effusion, not elsewhere classified SNOMED: 56067363 (17) Pacemaker ICD Codes: Z95.0 - Presence of cardiac pacemaker SNOMED: 320701792 (18) Aortic dissection, thoracic ICD Codes: I71.01 - Dissection of thoracic aorta SNOMED: 447536785 (19) Tracheostomy in place Assessment & Plan: trach stable no bleeding currently likely tongue etiology of mild oozing currently hemostatic without trauma ICD Codes: Z93.0 - Tracheostomy status SNOMED: 751203288 (20) Feeding by G-tube Assessment & Plan: okay to resume tube feeds via g tube patent and functional dressings okay ICD Codes: Z93.1 - Gastrostomy status SNOMED: 270325018, 834639602 (21) JAVIER (acute kidney injury) ICD Codes: N17.9 - Acute kidney failure, unspecified SNOMED: 19842433 (22) Elevated alkaline phosphatase level Assessment & Plan: noted on labs trend US ordered will follow with recs thank you ICD Codes: R74.8 - Abnormal levels of other serum enzymes SNOMED: 833333758 (23) Acute encephalopathy ICD Codes: G93.40 - Encephalopathy, unspecified SNOMED: 02308594, 066373233 (24) GT Lane Murphy Sep 15, 2019 12:43
[2019-09-15] MEDS: Albuterol/Ipratropium 3ml neb HHN SCH ×2 (13:57→19:55)
[2019-09-15 14:14] LABS: APPEARANCE,URINE SLIGHTLY CLOUDY; BILIRUBIN, URINE NEGATIVE (NEGATIVE); COLOR,URINE PALE YELLOW; GLUCOSE, URINE (UA) NEGATIVE (NEGATIVE); KETONES,URINE NEGATIVE (NEGATIVE); LEUKOCYTE ESTERASE ,URINE 3+ (NEGATIVE); NITRITE,URINE NEGATIVE (NEGATIVE); PH,URINE 6 (4.5-8.0); PROTEIN,URINE 3+ (NEGATIVE); UROBILINOGEN,URINE NORMAL MG/DL (0.0-1.0)
[2019-09-15] MEDS: Cefepime HCl 1 GM in D5W 55 ML IVPB SCH (14:18)
--- NOTE | 2019-09-15 14:30 | Consultation ---
Consult Note Consult Note I am asked to evaluate the patient at the request of Dr. Dong for renal failure Chief Complaint: Chest Pain This a 48-year-old female with a history of schizophrenia, COPD, respiratory failure status post tracheostomy. She presents with chief complaint of shortness of breath and chest pain. She woke up with bleeding from her mouth and lip. She then complained of feeling short of breath and chest pain. [facility] called 911. Plastic Bubble Packer gave her aspirin and nitroglycerin. No relief. Patient denies any trauma. No seizure history. Nothing made it better. Nothing made it worse. Denies any other complaint. History limited because patient has tracheostomy. 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 Past Medical History: see triage record, old chart reviewed, AFib, COPD Hx Cardiac Problems: Yes Hx Hypertension: Yes Hx Pacemaker: Yes - Left upper chest Hx Neurological Problems: Yes Hx Parkinson's Disease: Yes Hx Dysphasia: Yes Vital Signs Date Time Temp Pulse Resp B/P (MAP) Pulse Ox O2 Delivery O2 Flow Rate FiO2 09/15/19 02:08 73 20 153/68 (96) 99 Room Air Vitals with high blood pressure General Appearance: no apparent distress, other - bedridden middle age chroncially ill looking female on vent AC 450-12-80% PEEP 5 Lines, tubes and drains: peripheral HEENT: normocephalic, atraumatic, anicteric, status post trach - Shiley #7, secretions scant amount, yellow color, thick consistency Respiratory/Chest: no accessory muscle use, rhonchi - bilaterally - few scattered rhoinchi bilaterally Cardiovascular/Chest: normal rate, regular rhythm - SR on tele Abdomen: normal bowel sounds, non tender, soft, other - G tube Genitourinary/Rectal: raymond Extremities: no edema Skin Exam: warm/dry, other - multiple tattoos all over the body Neurologic: abnormal gait, other - asleep, arousable Musculoskeletal: atrophy - BLE . Assessment/Plan Patient is presented with sepsis and pneumonia and UTI Patient has acute renal failure, possible underlying chronic kidney failure Severe anemia Electrolyte imbalances: Hyponatremia, hypo-kalemia Chronic respiratory failure, COPD exacerbation Suggestions: Adjust blood pressure medication IV fluid Raymond catheter, intake and output Monitor renal parameters Avoid nephrotoxic's Antibiotics Per orders Patient had 2 previous admission here at [facility]. I spent an additional 36 minutes on review of medical records including prior hospital records,consult notes, progress notes, procedures ,imaging labs, hemodynamics, and other clinical documentation. Over 35 min Johnny Houston MD Sep 15, 2019 14:30
[2019-09-15 15:01] LABS: FERRITIN 1228 NG/ML (8-388); PHOSPHORUS 3.7 MG/DL (2.5-4.9)
[2019-09-15 15:02] LABS: % IRON SATURATION 13 % (15-50); IRON 34 ug/dL (50-175); TOTAL IRON BINDING CAPACITY 261 ug/dL (250-450)
[2019-09-15 15:14] LABS: CHOLESTEROL 121 MG/DL (< 200); HDL CHOLESTEROL 29 MG/DL (40-60); TRIGLYCERIDES 147 MG/DL (30-150)
[2019-09-15] MEDS: Sertraline 100mg tab GT SCH (21:22)
[2019-09-16] VITALS: BP 146/67
[2019-09-16] MEDS: Albuterol/Ipratropium 3ml neb HHN SCH ×4 (00:21→19:49)
[2019-09-16] MEDS: oxyCODONE 5mg IR tab GT PRN ×3 (01:57→20:21)
[2019-09-16] MEDS: Cefepime HCl 1 GM in D5W 55 ML IVPB SCH ×2 (03:45→16:46)
[2019-09-16 04:00] VITALS: BP 135/51
[2019-09-16] MEDS: dilTIAZem HCl 60mg tab GT SCH ×4 (05:28→23:32)
[2019-09-16] MEDS: HydrALAZINE 50mg tab GT SCH ×3 (05:28→23:33)
[2019-09-16] MEDS: HYDROcodone/Acetamin 10/325 tab GT PRN (05:30)
[2019-09-16 06:42] LABS: BASOPHILS % (AUTO) 0.3 % (0.0-2.0); EOSINOPHILS % (AUTO) 0.1 % (0.0-3.0); HEMATOCRIT 28.1 % (37.0-47.0); HEMOGLOBIN 9.6 G/DL (12.0-16.0); LYMPHOCYTES % (AUTO) 13.5 % (20.0-45.0); MEAN CORPUSCULAR VOLUME 93 FL (80-99); MONOCYTES % (AUTO) 7.8 % (1.0-10.0); NEUTROPHILS % (AUTO) 78.3 % (45.0-75.0); PLATELET COUNT 491 K/UL (150-450); RED BLOOD COUNT 3.03 M/UL (4.20-5.40); RED CELL DISTRIBUTION WIDTH 14.8 % (11.6-14.8); WHITE BLOOD COUNT 12.8 K/UL (4.8-10.8)
[2019-09-16 07:29] LABS: ALANINE AMINOTRANSFERASE 16 U/L (12-78); ALBUMIN 2.7 G/DL (3.4-5.0); ALBUMIN/GLOBULIN RATIO 0.6 (1.0-2.7); ALKALINE PHOSPHATASE 183 U/L (46-116); ANION GAP 17 mmol/L (5-15); ASPARTATE AMINO TRANSFERASE 23 U/L (15-37); BILIRUBIN,TOTAL 0.3 MG/DL (0.2-1.0); BLOOD UREA NITROGEN 172 mg/dL (7-18); CALCIUM 9.2 MG/DL (8.5-10.1); CARBON DIOXIDE 22 MMOL/L (21-32); CHLORIDE 90 MMOL/L (98-107); CREATININE 2.6 MG/DL (0.55-1.30); POTASSIUM 2.9 MMOL/L (3.5-5.1); SODIUM 129 MMOL/L (136-145)
[2019-09-16 08:00] VITALS: BP 165/66
[2019-09-16 08:10] LABS: PHOSPHORUS 3.6 MG/DL (2.5-4.9)
[2019-09-16] MEDS: clonazePAM 0.5mg tab GT SCH ×2 (09:16→20:21)
[2019-09-16] MEDS: Metoprolol Tartrate 50mg tab GT SCH ×2 (09:17→20:20)
[2019-09-16] MEDS: Docusate 100mg/10ml Liq GT SCH ×3 (09:18→17:41)
[2019-09-16] MEDS: OLANZapine 2.5mg tab GT SCH (09:18)
[2019-09-16] MEDS: Heparin 5000 units/ml inj SUBQ SCH ×2 (09:19→20:33)
--- NOTE | 2019-09-16 11:51 | Surgery Progress Note ---
Surgery Progress Note Subjective Additional Comments no acute events leukocytosis comfortable no complaints labs reviewed exam stable Objective Last 24 Hour Vital Signs Date Time Temp Pulse Resp B/P (MAP) Pulse Ox O2 Delivery O2 Flow Rate FiO2 09/16/19 09:17 71 165/66 09/16/19 09:00 Trach Collar 10.0 09/16/19 08:00 97.7 71 20 165/66 (99) 82 09/16/19 08:00 70 09/16/19 06:55 96 12.0 40 09/16/19 06:55 77 20 92 T-Piece 12.0 40 72 20 88 09/16/19 05:28 160/71 09/16/19 05:28 69 160/71 09/16/19 04:00 98.5 66 20 135/51 (79) 93 09/16/19 04:00 65 09/16/19 00:22 77 20 98 T-Piece 10.0 35 71 20 96 09/16/19 00:21 96 10.0 35 09/16/19 00:00 63 09/16/19 00:00 97.5 63 22 146/67 (93) 96 09/15/19 23:57 63 146/67 09/15/19 21:22 155/73 09/15/19 21:21 70 155/73 09/15/19 21:00 Trach Collar 10.0 09/15/19 20:00 99.0 70 20 155/73 (100) 94 09/15/19 20:00 69 09/15/19 19:56 76 20 100 T-Piece 10.0 35 78 20 99 09/15/19 19:55 99 10.0 35 09/15/19 18:06 68 140/67 09/15/19 16:00 68 09/15/19 16:00 97.7 70 20 140/67 (91) 92 09/15/19 14:17 151/71 09/15/19 13:57 63 20 100 Cool Aerosol 10.0 35 66 20 97 09/15/19 13:50 97 10.0 35 09/15/19 12:19 72 151/71 09/15/19 12:00 62 09/15/19 12:00 97.9 62 22 142/61 (88) 92 I&O Intake and Output 09/15/19 09/16/19 19:00 07:00 Intake Total 1405 ml 1670 ml Output Total 700 ml Balance 1405 ml 970 ml Intake Free Water 300 ml 200 ml IV Total 565 ml 975 ml Tube Feeding 540 ml 495 ml Output Urine Total 700 ml Dressing: saturated Wound: clean Cardiovascular: RSR Respiratory: decreased breath sounds Abdomen: soft, non-tender, present bowel sounds Extremities: no edema, no tenderness, no cyanosis Laboratory Tests Test 09/15/19 13:40 09/16/19 04:00 09/16/19 05:30 09/16/19 07:04 Urine Color Pale yellow Urine Appearance Slightly cloudy Urine pH 6 (4.5-8.0) Urine Specific [employer] 1.005 (1.005-1.035) Urine Protein 3+ (NEGATIVE) H Urine Glucose (UA) Negative (NEGATIVE) Urine Ketones Negative (NEGATIVE) Urine Blood 5+ (NEGATIVE) H Urine Nitrite Negative (NEGATIVE) Urine Bilirubin Negative (NEGATIVE) Urine Urobilinogen Normal MG/DL (0.0-1.0) Urine Leukocyte Esterase 3+ (NEGATIVE) H Urine RBC Tntc /HPF (0 - 2) H Urine WBC 5-10 /HPF (0 - 2) H Urine Squamous Epithelial Cells Occasional /LPF Urine Bacteria Few /HPF (NONE) Urine Random Sodium 29 mmol/L (20-110) White Blood Count 12.8 K/UL (4.8-10.8) H Red Blood Count 3.03 M/UL (4.20-5.40) L Hemoglobin 9.6 G/DL (12.0-16.0) L Hematocrit 28.1 % (37.0-47.0) L Mean Corpuscular Volume 93 FL (80-99) Mean Corpuscular Hemoglobin 31.7 PG (27.0-31.0) H Mean Corpuscular Hemoglobin Concent 34.2 G/DL (32.0-36.0) Red Cell Distribution Width 14.8 % (11.6-14.8) Platelet Count 491 K/UL (150-450) H Mean Platelet Volume 4.6 FL (6.5-10.1) L Neutrophils (%) (Auto) 78.3 % (45.0-75.0) H Lymphocytes (%) (Auto) 13.5 % (20.0-45.0) L Monocytes (%) (Auto) 7.8 % (1.0-10.0) Eosinophils (%) (Auto) 0.1 % (0.0-3.0) Basophils (%) (Auto) 0.3 % (0.0-2.0) Sodium Level 129 MMOL/L (136-145) L Potassium Level 2.9 MMOL/L (3.5-5.1) L Chloride Level 90 MMOL/L (98-107) L Carbon Dioxide Level 22 MMOL/L (21-32) Anion Gap 17 mmol/L (5-15) H Blood Urea Nitrogen 172 mg/dL (7-18) H Creatinine 2.6 MG/DL (0.55-1.30) H Estimat Glomerular Filtration Rate 19.8 mL/min (>60) Glucose Level 94 MG/DL (74-106) Uric Acid 8.7 MG/DL (2.6-7.2) H Calcium Level 9.2 MG/DL (8.5-10.1) Phosphorus Level 3.6 MG/DL (2.5-4.9) Magnesium Level 3.9 MG/DL (1.8-2.4) H Total Bilirubin 0.3 MG/DL (0.2-1.0) Aspartate Amino Transf (AST/SGOT) 23 U/L (15-37) Alanine Aminotransferase (ALT/SGPT) 16 U/L (12-78) Alkaline Phosphatase 183 U/L (46-116) H C-Reactive Protein, Quantitative 4.3 mg/dL (0.00-0.90) H Pro-B-Type Natriuretic Peptide > 77801 pg/mL (0-125) H Total Protein 7.6 G/DL (6.4-8.2) Albumin 2.7 G/DL (3.4-5.0) L Globulin 4.9 g/dL Albumin/Globulin Ratio 0.6 (1.0-2.7) L Arterial Blood pH 7.411 (7.350-7.450) Arterial Blood Partial Pressure CO2 28.6 mmHg (35.0-45.0) L Arterial Blood Partial Pressure O2 46.9 mmHg (75.0-100.0) Arterial Blood HCO3 17.8 mmol/L (22.0-26.0) *L Arterial Blood Oxygen Saturation 88.6 % (95-100) *L Arterial Blood Base Excess -5.9 (-2-2) L Rojas Test Positive Plan Problems: (1) Anemia (2) Proteinuria (3) UTI (urinary tract infection) (4) ARF (acute renal failure) (5) ACS (acute coronary syndrome) (6) Respiratory failure, acute and chronic (7) HCAP (healthcare-associated pneumonia) (8) Abrasion of lip, initial encounter (9) COPD with exacerbation (10) Hypokalemia (11) Sepsis Assessment & Plan: Leukocytosis, anemia, abnormal labs. Renal insufficiency potentially dehydrated Abnormal LFTs alk phos elevated Urine noted significant bacteria likely UTI etiology Wound stable still requiring local care IV antibiotics per infectious disease Discussed with mental health technician Dr. Berkowitz air mattress turn q2h nutritional tf will follow with recs thank you (12) Chronic respiratory failure (13) Ascites (14) Bacteremia (15) Hypernatremia (16) Pleural effusion (17) Pacemaker (18) Aortic dissection, thoracic (19) Tracheostomy in place Assessment & Plan: trach stable no bleeding currently likely tongue etiology of mild oozing currently hemostatic without trauma (20) Feeding by G-tube Assessment & Plan: okay to resume tube feeds via g tube patent and functional dressings okay DAILY ESTIMATED NEEDS: Needs based on Pulmonary, wound 49kg 30-35 kcals/kg [id number] total kcals 1.25-2 g protein/kg 61-98 g total protein Fluid per MD NUTRITION DIAGNOSIS: * Swallowing difficulty R/T dysphagia, respiratory status as evidenced by vent dep via T-collar, GT Dep. (CURRENT TF: Nepro @45ml/hr x 24 hrs) ENTERAL NUTRITION RECOMMENDATIONS: Nepro @ 40ml/hr x 24 hrs to provide 960ml, 1728kcal, 78g prot, 698ml free water * Rec LOWER current rate to 40ml/hr for 24 hrs run. 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
[2019-09-16 12:00] VITALS: BP 142/54
--- NOTE | 2019-09-16 12:59 | Nephrology Progress Note ---
Assessment/Plan Problem List: (1) JAVIER (acute kidney injury) (2) Renal failure (ARF), acute on chronic (3) Dehydration (4) Electrolyte imbalance (5) Anemia (6) Respiratory failure, acute and chronic (7) COPD with exacerbation Assessment Patient is presented with sepsis and pneumonia and UTI Patient has acute renal failure, possible underlying chronic kidney failure Severe anemia Electrolyte imbalances: Hyponatremia, hypo-kalemia Chronic respiratory failure, COPD exacerbation Plan Suggestions: Epogen subcu Adjust blood pressure medication IV fluid, adjusted Norman catheter, intake and output Monitor renal parameters Avoid nephrotoxic's Antibiotics Per orders 2D echocardiogram Kidney ultrasound Subjective ROS Limited/Unobtainable: Yes Objective Objective Last 24 Hour Vital Signs Date Time Temp Pulse Resp B/P (MAP) Pulse Ox O2 Delivery O2 Flow Rate FiO2 09/16/19 12:24 70 142/54 09/16/19 12:00 97.7 70 24 142/54 (83) 94 09/16/19 09:17 71 165/66 09/16/19 09:00 Trach Collar 10.0 09/16/19 08:00 97.7 71 20 165/66 (99) 82 09/16/19 08:00 70 09/16/19 06:55 96 12.0 40 09/16/19 06:55 77 20 92 T-Piece 12.0 40 72 20 88 09/16/19 05:28 160/71 09/16/19 05:28 69 160/71 09/16/19 04:00 98.5 66 20 135/51 (79) 93 09/16/19 04:00 65 09/16/19 00:22 77 20 98 T-Piece 10.0 35 71 20 96 09/16/19 00:21 96 10.0 35 09/16/19 00:00 63 09/16/19 00:00 97.5 63 22 146/67 (93) 96 09/15/19 23:57 63 146/67 09/15/19 21:22 155/73 09/15/19 21:21 70 155/73 09/15/19 21:00 Trach Collar 10.0 09/15/19 20:00 99.0 70 20 155/73 (100) 94 09/15/19 20:00 69 09/15/19 19:56 76 20 100 T-Piece 10.0 35 78 20 99 09/15/19 19:55 99 10.0 35 09/15/19 18:06 68 140/67 09/15/19 16:00 68 09/15/19 16:00 97.7 70 20 140/67 (91) 92 09/15/19 14:17 151/71 09/15/19 13:57 63 20 100 Cool Aerosol 10.0 35 66 20 97 09/15/19 13:50 97 10.0 35 Intake and Output 09/15/19 09/16/19 19:00 07:00 Intake Total 1405 ml 1670 ml Output Total 700 ml Balance 1405 ml 970 ml Intake Free Water 300 ml 200 ml IV Total 565 ml 975 ml Tube Feeding 540 ml 495 ml Output Urine Total 700 ml Laboratory Tests 09/15/19 13:40: Urine Color Pale yellow, Urine Appearance Slightly cloudy, Urine pH 6, Urine Specific [place] 1.005, Urine Protein 3+H, Urine Glucose (UA) Negative, Urine Ketones Negative, Urine Blood 5+H, Urine Nitrite Negative, Urine Bilirubin Negative, Urine Urobilinogen Normal, Urine Leukocyte Esterase 3+H, Urine RBC TntcH, Urine WBC 5-10H, Urine Squamous Epithelial Cells Occasional, Urine Bacteria Few 09/16/19 04:00: Urine Random Sodium 29 09/16/19 05:30: White Blood Count 12.8H, Red Blood Count 3.03L, Hemoglobin 9.6L, Hematocrit 28.1L, Mean Corpuscular Volume 93, Mean Corpuscular Hemoglobin 31.7H, Mean Corpuscular Hemoglobin Concent 34.2, Red Cell Distribution Width 14.8, Platelet Count 491H, Mean Platelet Volume 4.6L, Neutrophils (%) (Auto) 78.3H, Lymphocytes (%) (Auto) 13.5L, Monocytes (%) (Auto) 7.8, Eosinophils (%) (Auto) 0.1, Basophils (%) (Auto) 0.3, Sodium Level 129L, Potassium Level 2.9L, Chloride Level 90L, Carbon Dioxide Level 22, Anion Gap 17H, Blood Urea Nitrogen 172H, Creatinine 2.6H, Estimat Glomerular Filtration Rate 19.8, Glucose Level 94 , Uric Acid 8.7H, Calcium Level 9.2, Phosphorus Level 3.6, Magnesium Level 3.9H , Total Bilirubin 0.3, Aspartate Amino Transf (AST/SGOT) 23, Alanine Aminotransferase (ALT/SGPT) 16, Alkaline Phosphatase 183H, C-Reactive Protein, Quantitative 4.3H, Pro-B-Type Natriuretic Peptide > 00602I, Total Protein 7.6, Albumin 2.7L, Globulin 4.9, Albumin/Globulin Ratio 0.6L 09/16/19 07:04: Arterial Blood pH 7.411, Arterial Blood Partial Pressure CO2 28.6L, Arterial Blood Partial Pressure O2 46.9*L, Arterial Blood HCO3 17.8*L, Arterial Blood Oxygen Saturation 88.6*L, Arterial Blood Base Excess -5.9L, Rojas Test Positive Height (Feet): 5 Height (Inches): 5.00 Weight (Pounds): 120 General Appearance: mild distress EENT: other - Trach to oxygen tube Cardiovascular: normal rate Respiratory/Chest: decreased breath sounds Abdomen: distended, other - PEG Johnny Houston MD Sep 16, 2019 12:59
[2019-09-16] MEDS: D5NS 1,000 ML IV SCH (13:38)
--- NOTE | 2019-09-16 13:43 | Consultation ---
History of Present Illness General Date patient seen: Sep 16, 2019 Chief Complaint: Chest Pain Present Illness HPI 48 y/o F with hx of Afib, HTN, s/p PPM, Parkinson's Disease, schizophrenia, COPD , chronic resp failure s/p trach, tracheal bleeding, PPM site infection and abscess sp removal (ABBIE neg) 11/2018, MRSA pneumonia, dysphagia sp GT, aortic dissection s/p repair 2017, [place] resident presented to ED n 09/14 with chest pain, SOB and bleeding from her mouth and lip. Tested neg for COVID 19 at [place] early in August. Allergies: Coded Allergies: No Known Allergies (Unverified , 10/10/17) Medication History Scheduled Amlodipine Besylate (Norvasc), 10 MG GT DAILY, (Reported) Clonazepam* (Klonopin*), 1 MG GT Q12HR, (Reported) Diltiazem Hcl* (Cardizem*), 90 MG GT EVERY 6 HOURS, (Reported) Docusate Sodium* (Colace*), 100 MG GT DAILY, (Reported) Gemfibrozil* (Lopid*), 500 MG GT TWICE A DAY, (Reported) Glycopyrrolate (Glycopyrrolate), 1 MG GT THREE TIMES A DAY, (Reported) Heparin Sod (Porcine) (Heparin Sodium*), 5,000 UNITS SUBQ EVERY 8 HOURS, ( Reported) Hydralazine Hcl* (Hydralazine Hcl*), 100 MG ORAL EVERY 8 HOURS, (Reported) Magnesium Hydroxide* (Milk Of Magnesia*), 30 ML GT DAILY, (Reported) Meropenem (Merrem), 1 GM IV EVERY 12 HOURS Metoprolol Tartrate* (Metoprolol Tartrate*), 50 MG GT EVERY 12 HOURS, (Reported) Olanzapine (Zyprexa), 7.5 MG GT DAILY, (Reported) Sennosides (Senna), 8.6 MG GT BEDTIME, (Reported) Sertraline Hcl* (Zoloft*), 100 MG GT DAILY, (Reported) Vancomycin In Dextrose,Iso-Osm (Vancomycin 750 Mg/150 Ml Bag), 750 MG IV DAILY Scheduled PRN Bisacodyl (Dulcolax), 10 MG RC DAILY PRN for Constipation, (Reported) Hydrocodone Bit/Acetaminophen 10-325* ([place] 10-325*), 1 TAB GT Q6H PRN for For Pain, (Reported) Melatonin (Melatonin), 6 MG GT BEDTIME PRN for Insomnia, (Reported) Metoclopramide Hcl* (Metoclopramide Hcl*), 10 MG ORAL EVERY 6 HOURS PRN for Nausea & Vomiting, (Reported) Na Phos,M-B/Na Phos,Di-Ba* (Fleet Enema*), 133 ML RECTAL DAILY PRN for Constipation, (Reported) Oxycodone Hcl* (Oxycodone Hcl*), 5 MG GT Q4H PRN for For Pain, (Reported) Miscellaneous Medications Acetaminophen (Tylenol), 325 MG GT, (Reported) Albuterol Sulfate (Proventil Hfa), 6.7 GM IH, (Reported) Ipratropium [place] (Atrovent Hfa), 12.9 GM IH, (Reported) Patient History Healthcare decision maker Resuscitation status Advanced Directive on File Patient History Narrative Pmhx: as above Shx: Denies: smoking Fhx: non contributory Review of Systems All Other Systems: negative except mentioned in HPI ROS Narrative Physical Exam Physical Exam Narrative Wound: clean Cardiovascular: RSR Respiratory: decreased breath sounds Abdomen: soft, non-tender, present bowel sounds Extremities: no edema, no tenderness, no cyanosis Last 24 Hour Vital Signs Date Time Temp Pulse Resp B/P (MAP) Pulse Ox O2 Delivery O2 Flow Rate FiO2 09/16/19 12:47 73 20 92 T-Piece 12.0 40 73 20 89 09/16/19 12:47 92 12.0 40 09/16/19 12:24 70 142/54 09/16/19 12:00 97.7 70 24 142/54 (83) 94 09/16/19 09:17 71 165/66 09/16/19 09:00 Trach Collar 10.0 09/16/19 08:00 97.7 71 20 165/66 (99) 82 09/16/19 08:00 70 09/16/19 06:55 96 12.0 40 09/16/19 06:55 77 20 92 T-Piece 12.0 40 72 20 88 09/16/19 05:28 160/71 09/16/19 05:28 69 160/71 09/16/19 04:00 98.5 66 20 135/51 (79) 93 09/16/19 04:00 65 09/16/19 00:22 77 20 98 T-Piece 10.0 35 71 20 96 09/16/19 00:21 96 10.0 35 09/16/19 00:00 63 09/16/19 00:00 97.5 63 22 146/67 (93) 96 09/15/19 23:57 63 146/67 09/15/19 21:22 155/73 09/15/19 21:21 70 155/73 09/15/19 21:00 Trach Collar 10.0 09/15/19 20:00 99.0 70 20 155/73 (100) 94 09/15/19 20:00 69 09/15/19 19:56 76 20 100 T-Piece 10.0 35 78 20 99 09/15/19 19:55 99 10.0 35 09/15/19 18:06 68 140/67 09/15/19 16:00 68 09/15/19 16:00 97.7 70 20 140/67 (91) 92 09/15/19 14:17 151/71 09/15/19 13:57 63 20 100 Cool Aerosol 10.0 35 66 20 97 09/15/19 13:50 97 10.0 35 Intake and Output 09/15/19 09/16/19 19:00 07:00 Intake Total 1405 ml 1670 ml Output Total 700 ml Balance 1405 ml 970 ml Intake Free Water 300 ml 200 ml IV Total 565 ml 975 ml Tube Feeding 540 ml 495 ml Output Urine Total 700 ml Laboratory Tests Test 09/15/19 13:40 09/16/19 04:00 09/16/19 05:30 09/16/19 07:04 Urine Color Pale yellow Urine Appearance Slightly cloudy Urine pH 6 (4.5-8.0) Urine Specific [place] 1.005 (1.005-1.035) Urine Protein 3+ (NEGATIVE) H Urine Glucose (UA) Negative (NEGATIVE) Urine Ketones Negative (NEGATIVE) Urine Blood 5+ (NEGATIVE) H Urine Nitrite Negative (NEGATIVE) Urine Bilirubin Negative (NEGATIVE) Urine Urobilinogen Normal MG/DL (0.0-1.0) Urine Leukocyte Esterase 3+ (NEGATIVE) H Urine RBC Tntc /HPF (0 - 2) H Urine WBC 5-10 /HPF (0 - 2) H Urine Squamous Epithelial Cells Occasional /LPF Urine Bacteria Few /HPF (NONE) Urine Random Sodium 29 mmol/L (20-110) White Blood Count 12.8 K/UL (4.8-10.8) H Red Blood Count 3.03 M/UL (4.20-5.40) L Hemoglobin 9.6 G/DL (12.0-16.0) L Hematocrit 28.1 % (37.0-47.0) L Mean Corpuscular Volume 93 FL (80-99) Mean Corpuscular Hemoglobin 31.7 PG (27.0-31.0) H Mean Corpuscular Hemoglobin Concent 34.2 G/DL (32.0-36.0) Red Cell Distribution Width 14.8 % (11.6-14.8) Platelet Count 491 K/UL (150-450) H Mean Platelet Volume 4.6 FL (6.5-10.1) L Neutrophils (%) (Auto) 78.3 % (45.0-75.0) H Lymphocytes (%) (Auto) 13.5 % (20.0-45.0) L Monocytes (%) (Auto) 7.8 % (1.0-10.0) Eosinophils (%) (Auto) 0.1 % (0.0-3.0) Basophils (%) (Auto) 0.3 % (0.0-2.0) Sodium Level 129 MMOL/L (136-145) L Potassium Level 2.9 MMOL/L (3.5-5.1) L Chloride Level 90 MMOL/L (98-107) L Carbon Dioxide Level 22 MMOL/L (21-32) Anion Gap 17 mmol/L (5-15) H Blood Urea Nitrogen 172 mg/dL (7-18) H Creatinine 2.6 MG/DL (0.55-1.30) H Estimat Glomerular Filtration Rate 19.8 mL/min (>60) Glucose Level 94 MG/DL (74-106) Uric Acid 8.7 MG/DL (2.6-7.2) H Calcium Level 9.2 MG/DL (8.5-10.1) Phosphorus Level 3.6 MG/DL (2.5-4.9) Magnesium Level 3.9 MG/DL (1.8-2.4) H Total Bilirubin 0.3 MG/DL (0.2-1.0) Aspartate Amino Transf (AST/SGOT) 23 U/L (15-37) Alanine Aminotransferase (ALT/SGPT) 16 U/L (12-78) Alkaline Phosphatase 183 U/L (46-116) H C-Reactive Protein, Quantitative 4.3 mg/dL (0.00-0.90) H Pro-B-Type Natriuretic Peptide > 42404 pg/mL (0-125) H Total Protein 7.6 G/DL (6.4-8.2) Albumin 2.7 G/DL (3.4-5.0) L Globulin 4.9 g/dL Albumin/Globulin Ratio 0.6 (1.0-2.7) L Arterial Blood pH 7.411 (7.350-7.450) Arterial Blood Partial Pressure CO2 28.6 mmHg (35.0-45.0) L Arterial Blood Partial Pressure O2 46.9 mmHg (75.0-100.0) Arterial Blood HCO3 17.8 mmol/L (22.0-26.0) *L Arterial Blood Oxygen Saturation 88.6 % (95-100) *L Arterial Blood Base Excess -5.9 (-2-2) L Rojas Test Positive Height (Feet): 5 Height (Inches): 5.00 Weight (Pounds): 120 Medications Current Medications Medications (Trade) Dose Ordered Sig/Penny Route PRN Reason Start Time Stop Time Status Last Admin Dose Admin Acetaminophen/ Hydrocodone Bitart ([place] 10/325) 1 tab Q6H PRN GT For Pain 09/15/19 07:30 09/22/19 07:29 09/16/19 05:30 Albuterol/ Ipratropium (Albuterol/ Ipratropium) 3 ml Q6HRT HHN 09/15/19 13:00 09/20/19 12:59 09/16/19 12:37 Cefepime HCl 1 gm/ Dextrose 55 ml @ 110 mls/hr Q12H IVPB 09/15/19 15:00 09/22/19 14:59 09/16/19 03:45 Clonazepam (KlonoPIN) 0.5 mg Q12HR GT 09/15/19 09:00 09/22/19 08:59 09/16/19 09:16 Dextrose/Sodium Chloride 1,000 ml @ 75 mls/hr [id number] IV 8/3/20 13:00 10/16/19 12:59 Diltiazem HCl (Cardizem Tab) 60 mg EVERY 6 HOURS GT 09/15/19 12:00 10/15/19 11:59 09/16/19 12:24 Docusate Sodium (Colace) 100 mg TID GT 09/16/19 13:00 10/15/19 08:59 Epoetin Gelacio (Epoetin Gelacio-EPBX(NON ESRD)) 10,000 unit MON-MON-MON SUBQ 09/16/19 21:00 12/15/19 20:59 Heparin Sodium (Porcine) (Heparin 5000 units/ml) 5,000 units EVERY 12 HOURS SUBQ 09/15/19 09:00 10/30/19 08:59 09/16/19 09:19 Hydralazine HCl (Apresoline) 10 mg Q4H PRN IV BP over 160 systolic 09/15/19 15:00 12/14/19 14:59 Hydralazine HCl (Apresoline) 50 mg Q6HR GT 09/16/19 18:00 12/15/19 17:59 Levofloxacin 50 ml @ 50 mls/hr Q24H IVPB 09/15/19 21:00 09/22/19 20:59 09/15/19 21:22 Metoprolol Tartrate (Lopressor) 50 mg EVERY 12 HOURS GT 09/15/19 09:00 12/14/19 08:59 09/16/19 09:17 Olanzapine (ZyPREXA) 2.5 mg DAILY GT 09/15/19 09:00 10/30/19 08:59 09/16/19 09:18 Oxycodone HCl (Roxicodone) 5 mg Q4H PRN GT Severe Pain (Pain Scale 7-10) 09/15/19 08:30 09/22/19 08:29 09/16/19 12:45 Sertraline HCl (Zoloft) 100 mg BEDTIME GT 09/15/19 21:00 10/15/19 20:59 09/15/19 21:22 Sodium Chloride 500 ml @ 30 mls/hr ONCE ONCE IV 09/16/19 14:00 09/17/19 06:39 Assessment/Plan Assessment/Plan: Abx: Cefepime 09/14- Levaquin 09/14- Assessment: Pneumonia- ro COVID19 -09/14 CXR: Bilateral airspace opacities, preferentially involving the right lung, consistent with multifocal infiltrate. Trace bilateral pleural effusions. No pneumothorax. rapid COVID PCR neg Gram positive bacteremia- real vs contaminant; does have hx of infected PPM- could be a possibility- ro endocarditis -09/14 Bcx 2/4 GPC clusters UTI -09/14 u/a wbc tnct, nit neg, leuk +3; ucx >100k GNR Afebrile Leukocytosis JAVIER on CKD, improving hx of PPM site (pocket) infection and pocket abscess 2ry to S. epi-11/2018, sp > 6weeks IV vancomycin -11/27 SP ABBIE: no evidence for vegetation on any of the valves -11/26/18 SP PPM removal: -OR findings:The fibrous capsule enclosing the generator was then opened and there was a [id number] amount of yellowish fluid drainage. The generator was then removed.Atrial and ventricular leads were detached. The necrotic tissue of the pocket was then removed and the pocket was flushed with an antibiotic solution. -Capsule, wound tissue and lead tip cx: Neg -2d echo: no vegetation seen -US chest: 4.6 x 3.4 x 0.9 cm hypoechoic/anechoic area overlying left chest pacemaker power pack. This could represent either a discrete fluid collection or a focal area of very edematous tissue. Infected fluid pocket also possible. -11/18 Bcx 3/4 S. epi; 11/20 Bcx neg; 11/24 Bcx Neg; 11/27 Bcx Neg Hx of PNA -11/2019 sp cx PsA (arnett S), ABC (I Ceftriaxone; otherwise negative) - -sp cx MRSA, ABC (I Ceftriaxone; otherwise S) Afib HTN dysphagia sp GT aortic dissection s/p repair 2017, s/p PPM Parkinson's Disease schizophrenia anxiety COPD chronic resp failure s/p trach hx of tracheal bleeding [place] resident ([facility]) Plan: -Continue empiric Cefepime and Levaquin #2 pending cx -Add empiric IV Vancomycin -f/u cx -Monitor CBC/CMP, temperatures -Bcx x2, sp cx -2d echo -COVID19 isolation and testing; 2nd COVID PCR ordered Thank you for this consultation. Will continue to follow along with you. Discussed with ERASMO. Doreen Nino M.D. Sep 16, 2019 13:43
[2019-09-16] MEDS ORDERED: NaCl 3% 500ml 500 ML IV ONE (14:00)
[2019-09-16] MEDS ORDERED: HydrALAZINE 50mg tab GT SCH (14:00)
--- NOTE | 2019-09-16 14:09 | History & Physical ---
History of Present Illness General Reason for Hospitalization: Chest Pain Present Illness Allergies: Coded Allergies: No Known Allergies (Unverified , 10/10/17) COVID-19 Screening Contact w/high risk pt: Yes Experienced COVID-19 symptoms?: No Medication History Scheduled Amlodipine Besylate (Norvasc), 10 MG GT DAILY, (Reported) Clonazepam* (Klonopin*), 1 MG GT Q12HR, (Reported) Diltiazem Hcl* (Cardizem*), 90 MG GT EVERY 6 HOURS, (Reported) Docusate Sodium* (Colace*), 100 MG GT DAILY, (Reported) Gemfibrozil* (Lopid*), 500 MG GT TWICE A DAY, (Reported) Glycopyrrolate (Glycopyrrolate), 1 MG GT THREE TIMES A DAY, (Reported) Heparin Sod (Porcine) (Heparin Sodium*), 5,000 UNITS SUBQ EVERY 8 HOURS, ( Reported) Hydralazine Hcl* (Hydralazine Hcl*), 100 MG ORAL EVERY 8 HOURS, (Reported) Magnesium Hydroxide* (Milk Of Magnesia*), 30 ML GT DAILY, (Reported) Meropenem (Merrem), 1 GM IV EVERY 12 HOURS Metoprolol Tartrate* (Metoprolol Tartrate*), 50 MG GT EVERY 12 HOURS, (Reported) Olanzapine (Zyprexa), 7.5 MG GT DAILY, (Reported) Sennosides (Senna), 8.6 MG GT BEDTIME, (Reported) Sertraline Hcl* (Zoloft*), 100 MG GT DAILY, (Reported) Vancomycin In Dextrose,Iso-Osm (Vancomycin 750 Mg/150 Ml Bag), 750 MG IV DAILY Scheduled PRN Bisacodyl (Dulcolax), 10 MG RC DAILY PRN for Constipation, (Reported) Hydrocodone Bit/Acetaminophen 10-325* ([place] 10-325*), 1 TAB GT Q6H PRN for For Pain, (Reported) Melatonin (Melatonin), 6 MG GT BEDTIME PRN for Insomnia, (Reported) Metoclopramide Hcl* (Metoclopramide Hcl*), 10 MG ORAL EVERY 6 HOURS PRN for Nausea & Vomiting, (Reported) Na Phos,M-B/Na Phos,Di-Ba* (Fleet Enema*), 133 ML RECTAL DAILY PRN for Constipation, (Reported) Oxycodone Hcl* (Oxycodone Hcl*), 5 MG GT Q4H PRN for For Pain, (Reported) Miscellaneous Medications Acetaminophen (Tylenol), 325 MG GT, (Reported) Albuterol Sulfate (Proventil Hfa), 6.7 GM IH, (Reported) Ipratropium [place] (Atrovent Hfa), 12.9 GM IH, (Reported) Patient History Healthcare decision maker Resuscitation status Advanced Directive on File Review of Systems Review of Symptoms General ROS: no weight loss or fever Psychological ROS: no depression or mood changes, no memory loss Ophthalmic ROS: no visual changes or eye irritation ENT ROS: no nasal congestion, hearing loss, dizziness Allergy and Immunology ROS: no allergic symptoms or urticaria Hematological and Lymphatic ROS: no swollen glands, unusual bleeding or bruising Endocrine ROS: no polyuria, polydipsia, weight changes, temperature intolerance Respiratory ROS: no cough, shortness of breath, or wheezing Cardiovascular ROS: no chest pain or dyspnea on exertion Gastrointestinal ROS: denies abdominal pain, bright red blood in stool. Musculoskeletal ROS: no myalgias or arthralgias Neurological ROS: no TIA or stroke symptoms Dermatological ROS: no new or changing skin lesions, rashes or pruritis Physical Exam Physical Exam General appearance: alert, cooperative, no distress, appears stated age Head: Normocephalic, without obvious abnormality, atraumatic Eyes: conjunctivae/corneas clear. PERRL, EOM's intact. Fundi benign Throat: Lips, mucosa, and tongue normal. Teeth and gums normal Neck: supple, symmetrical, trachea midline, no adenopathy, thyroid: not enlarged, symmetric, no tenderness/mass/nodules, no carotid bruit and no JVD Lungs: clear to auscultation bilaterally Heart: regular rate and rhythm, S1, S2 normal, no murmur, click, rub or gallop Abdomen: soft, non-tender. Bowel sounds normal. No masses, no organomegaly Extremities: extremities normal, atraumatic, no cyanosis or edema Pulses: 2+ and symmetric Skin: Skin color, texture, turgor normal. No rashes or lesions Neurologic: Grossly normal Last 24 Hour Vital Signs Date Time Temp Pulse Resp B/P (MAP) Pulse Ox O2 Delivery O2 Flow Rate FiO2 09/16/19 12:47 73 20 92 T-Piece 12.0 40 73 20 89 09/16/19 12:47 92 12.0 40 09/16/19 12:24 70 142/54 09/16/19 12:00 97.7 70 24 142/54 (83) 94 09/16/19 09:17 71 165/66 09/16/19 09:00 Trach Collar 10.0 09/16/19 08:00 97.7 71 20 165/66 (99) 82 09/16/19 08:00 70 09/16/19 06:55 96 12.0 40 09/16/19 06:55 77 20 92 T-Piece 12.0 40 72 20 88 09/16/19 05:28 160/71 09/16/19 05:28 69 160/71 09/16/19 04:00 98.5 66 20 135/51 (79) 93 09/16/19 04:00 65 09/16/19 00:22 77 20 98 T-Piece 10.0 35 71 20 96 09/16/19 00:21 96 10.0 35 09/16/19 00:00 63 09/16/19 00:00 97.5 63 22 146/67 (93) 96 09/15/19 23:57 63 146/67 09/15/19 21:22 155/73 09/15/19 21:21 70 155/73 09/15/19 21:00 Trach Collar 10.0 09/15/19 20:00 99.0 70 20 155/73 (100) 94 09/15/19 20:00 69 09/15/19 19:56 76 20 100 T-Piece 10.0 35 78 20 99 09/15/19 19:55 99 10.0 35 09/15/19 18:06 68 140/67 09/15/19 16:00 68 09/15/19 16:00 97.7 70 20 140/67 (91) 92 09/15/19 14:17 151/71 Intake and Output 09/15/19 09/16/19 19:00 07:00 Intake Total 1405 ml 1670 ml Output Total 700 ml Balance 1405 ml 970 ml Intake Free Water 300 ml 200 ml IV Total 565 ml 975 ml Tube Feeding 540 ml 495 ml Output Urine Total 700 ml Laboratory Tests Test 09/16/19 04:00 09/16/19 05:30 09/16/19 07:04 Urine Random Sodium 29 mmol/L (20-110) White Blood Count 12.8 K/UL (4.8-10.8) H Red Blood Count 3.03 M/UL (4.20-5.40) L Hemoglobin 9.6 G/DL (12.0-16.0) L Hematocrit 28.1 % (37.0-47.0) L Mean Corpuscular Volume 93 FL (80-99) Mean Corpuscular Hemoglobin 31.7 PG (27.0-31.0) H Mean Corpuscular Hemoglobin Concent 34.2 G/DL (32.0-36.0) Red Cell Distribution Width 14.8 % (11.6-14.8) Platelet Count 491 K/UL (150-450) H Mean Platelet Volume 4.6 FL (6.5-10.1) L Neutrophils (%) (Auto) 78.3 % (45.0-75.0) H Lymphocytes (%) (Auto) 13.5 % (20.0-45.0) L Monocytes (%) (Auto) 7.8 % (1.0-10.0) Eosinophils (%) (Auto) 0.1 % (0.0-3.0) Basophils (%) (Auto) 0.3 % (0.0-2.0) Sodium Level 129 MMOL/L (136-145) L Potassium Level 2.9 MMOL/L (3.5-5.1) L Chloride Level 90 MMOL/L (98-107) L Carbon Dioxide Level 22 MMOL/L (21-32) Anion Gap 17 mmol/L (5-15) H Blood Urea Nitrogen 172 mg/dL (7-18) H Creatinine 2.6 MG/DL (0.55-1.30) H Estimat Glomerular Filtration Rate 19.8 mL/min (>60) Glucose Level 94 MG/DL (74-106) Uric Acid 8.7 MG/DL (2.6-7.2) H Calcium Level 9.2 MG/DL (8.5-10.1) Phosphorus Level 3.6 MG/DL (2.5-4.9) Magnesium Level 3.9 MG/DL (1.8-2.4) H Total Bilirubin 0.3 MG/DL (0.2-1.0) Aspartate Amino Transf (AST/SGOT) 23 U/L (15-37) Alanine Aminotransferase (ALT/SGPT) 16 U/L (12-78) Alkaline Phosphatase 183 U/L (46-116) H C-Reactive Protein, Quantitative 4.3 mg/dL (0.00-0.90) H Pro-B-Type Natriuretic Peptide > 30666 pg/mL (0-125) H Total Protein 7.6 G/DL (6.4-8.2) Albumin 2.7 G/DL (3.4-5.0) L Globulin 4.9 g/dL Albumin/Globulin Ratio 0.6 (1.0-2.7) L Arterial Blood pH 7.411 (7.350-7.450) Arterial Blood Partial Pressure CO2 28.6 mmHg (35.0-45.0) L Arterial Blood Partial Pressure O2 46.9 mmHg (75.0-100.0) Arterial Blood HCO3 17.8 mmol/L (22.0-26.0) *L Arterial Blood Oxygen Saturation 88.6 % (95-100) *L Arterial Blood Base Excess -5.9 (-2-2) L Rojas Test Positive Height (Feet): 5 Height (Inches): 5.00 Weight (Pounds): 120 Medications Current Medications Medications (Trade) Dose Ordered Sig/Penny Route PRN Reason Start Time Stop Time Status Last Admin Dose Admin Acetaminophen/ Hydrocodone Bitart ([place] 10/325) 1 tab Q6H PRN GT For Pain 09/15/19 07:30 09/22/19 07:29 09/16/19 05:30 Albuterol/ Ipratropium (Albuterol/ Ipratropium) 3 ml Q6HRT HHN 09/15/19 13:00 09/20/19 12:59 09/16/19 12:37 Cefepime HCl 1 gm/ Dextrose 55 ml @ 110 mls/hr Q12H IVPB 09/15/19 15:00 09/22/19 14:59 09/16/19 03:45 Clonazepam (KlonoPIN) 0.5 mg Q12HR GT 09/15/19 09:00 09/22/19 08:59 09/16/19 09:16 Dextrose/Sodium Chloride 1,000 ml @ 75 mls/hr [id number] IV 09/16/19 13:00 10/16/19 12:59 09/16/19 13:38 Diltiazem HCl (Cardizem Tab) 60 mg EVERY 6 HOURS GT 09/15/19 12:00 10/15/19 11:59 09/16/19 12:24 Docusate Sodium (Colace) 100 mg TID GT 09/16/19 13:00 10/15/19 08:59 09/16/19 13:38 Epoetin Gelacio (Epoetin Gelacio-EPBX(NON ESRD)) 10,000 unit MON-MON-MON SUBQ 09/16/19 21:00 12/15/19 20:59 Heparin Sodium (Porcine) (Heparin 5000 units/ml) 5,000 units EVERY 12 HOURS SUBQ 09/15/19 09:00 10/30/19 08:59 09/16/19 09:19 Hydralazine HCl (Apresoline) 10 mg Q4H PRN IV BP over 160 systolic 09/15/19 15:00 12/14/19 14:59 Hydralazine HCl (Apresoline) 50 mg Q6HR GT 09/16/19 18:00 12/15/19 17:59 Levofloxacin 50 ml @ 50 mls/hr Q24H IVPB 09/15/19 21:00 09/22/19 20:59 09/15/19 21:22 Metoprolol Tartrate (Lopressor) 50 mg EVERY 12 HOURS GT 09/15/19 09:00 12/14/19 08:59 09/16/19 09:17 Olanzapine (ZyPREXA) 2.5 mg DAILY GT 09/15/19 09:00 10/30/19 08:59 09/16/19 09:18 Oxycodone HCl (Roxicodone) 5 mg Q4H PRN GT Severe Pain (Pain Scale 7-10) 09/15/19 08:30 09/22/19 08:29 09/16/19 12:45 Sertraline HCl (Zoloft) 100 mg BEDTIME GT 09/15/19 21:00 10/15/19 20:59 09/15/19 21:22 Sodium Chloride 500 ml @ 30 mls/hr ONCE ONCE IV 09/16/19 14:00 09/17/19 06:39 Vancomycin HCl (Vanco pharmacy to dose) 1 ea DAILY PRN MISC Per rx protocol 09/16/19 13:45 10/16/19 13:44 Vancomycin/Sodium Chloride 275 ml @ 183.333 mls/hr ONCE IVPB 09/16/19 16:00 09/16/19 18:00 Assessment/Plan Assessment/Plan: H&P IM Covering Dr. Dong DOS 09/16/2019 RFA: Sepsis, UTI HPI This a 48-year-old female well known to me, with a history of schizophrenia, COPD, respiratory failure status post tracheostomy. She presents with chief complaint of shortness of breath and chest pain. She woke up with bleeding from her mouth and lip. She then complained of feeling short of breath and chest pain. detention called 911. Prospecting Driller gave her aspirin and nitroglycerin. No relief. Patient denies any trauma. No seizure history. Nothing made it better. Nothing made it worse. Denies any other complaint. History limited because patient has tracheostomy. 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 COVID-19 Screening: Negative COVID-19 COVID-19 Testing Source: earlier in August from SNF Patient History Past Medical History: see triage record, old chart reviewed, AFib, COPD Past Surgical History: other Pertinent Family History: none Social History: Denies: smoking Now: No Immunizations: other Reviewed Nursing Documentation: PMH: Agreed; PSxH: Agreed Nursing Documentation-PMH Hx Cardiac Problems: Yes Hx Hypertension: Yes Hx Pacemaker: Yes - Left upper chest Hx Cancer: No Hx Gastrointestinal Problems: No Hx Neurological Problems: Yes Hx Cerebrovascular Accident: No Hx Transient Ischemic Attacks: No Hx Dementia: No Hx Alzheimer's Disease: No Hx Parkinson's Disease: Yes Hx Meningitis: No Hx Encephalitis: No Hx Dysphasia: Yes Review of Systems Eye: Denies: eye pain, blurred vision ENT: Denies: ear pain, nose congestion, throat swelling Respiratory: Reports: shortness of breath; Denies: cough Cardiovascular: Reports: chest pain; Denies: palpitations Gastrointestinal: Denies: abdominal pain, diarrhea, nausea, vomiting Musculoskeletal: Denies: back pain, joint pain Skin: Denies: rash Neurological: Denies: headache, numbness Endocrine: Denies: increased thirst, increased urine Hematologic/Lymphatic: Denies: easy bruising All Other Systems: negative except mentioned in HPI Physical Exam: Vitals: reviewed General: NAD HEENT: nc, at Neck: supple ++tracn/vent Chest: clear breath sounds bilaterally Cardiovascular: RRR, no s3, s4 Abdomen: soft, nontender, nd +gtube Extremities: no cce, normal range of motion Neuro: alert Labs reviewed Imaging: noted Assessment and Recs # Leukocytosis, now with gram positive bacteremiaas well as pna noted --> historically --> PPM site (pocket) infection (redness and pain, bacteremia) and likely pocket abscess - no vegetation seen on ABBIE --> is s'p pm removal and also pocket infection is better --> per cards recs in re to tach/davis --> wbc 15-->19-->17-->15-->13 --> ABX cefepime/levaquin --> ID recs are noted # Anemia of chronic disease due to underlying chronic medical issues, multifactorial --> Anemia workup has been reviewed, cw acd --> No evidence of hemolysis is noted, peripheral smear has been reviewed. --> Hgb goal >7. Transfuse prn. --> Epogen started --> Medications have been reviewed --> low threshold for gi evaluation in case has occult + --> hgb 7.1-->7.8-->8.9->9.2-->8.5-->9.7 # Thrombocytois is likely reactive process, is s/p infection --> plt trend 610k-->706k --> p smear reviewed # Acute hypoxic respiratory failure s/p intubation 11/23- ?ARDS --> on vent/trach # Gram positive bacteremia- real bacteremia- 2ry to above and probable PNA --> per id care # JAVIER initially >2 --> now improved with D5w # Dysphagia s/p peg # Thoracic aortic dissection s/p repair early 2017 # [place] resident # Dvt ppx heparin sq The timing of this note does not necessarily reflect the time of the patient was seen. Greatly appreciate consultation. [facility] Hospital declaration INPATIENT level of care is warranted for this patient because patient is a 89 year old with who presents with suspicion of . I have a high level of concern because . Patient is at high risk for . Plan of care/treatment include . Patient care is expected to be greater than 2 midnights. OBSERVATION level of care is warranted for this patient. Patient is a 89 year old with who presents with . Patient will be admitted for 1 midnight, but if additional night(s) is/are necessary, patient will be converted to inpatient status for the entire hospitalization Disposition: Once the patient is stable to leave the hospital, I anticipate the patient will likely be discharged to the following environment: Estimated discharge date: I spent 70 minutes on this patient's case, and minutes was dedicated to counseling and/or care coordination. MIPS (Merit-based Incentive Payment System) Applicable CPT: 27750, 58953 CHECK ALL THAT ARE MET: Measure #5 (CHF): All ages. Prescribe GARY/ARB upon discharge for patients with left ventricular systolic dysfunction. If not, the reason is clearly documented in the medical chart. Measure #8 (CHF): All ages. Prescribe a beta flori upon discharge for patients with left ventricular systolic dysfunction. If not, the reason is clearly documented in the medical chart. Measure #47 Advance care plan or surrogate decision maker documented in the medical record. Measure #130 The provider has documented, updated, or reviewed the patients current medication list and has documented it in the patients note. Measure #374 (All): Send report to referring provider. Measure #407(Sepsis due to MSSA bacteremia): Age 18+ Patient treated with a beta-lactam antibiotic (Nafcillin, Oxacillin or Cefazolin) as definitive therapy. MEDICAL COMPLEXITY High complexity medical decision making (need 2/3 categories) Problem - need 4 points Acute/new problem with new plan for workup (4 points, 1 max) Acute/new problem without additional workup (3 points, 1 max) Unstable chronic problem actively being managed (2 point each, 2 max) Stable chronic problem actively being managed (1 point each, 2 max) Self-limited/transient process (constipation, muscle ache, etc) (1 point each , 2 max) Data - need 4 points Reviewed labs/imaging studies (1 points, 2 max) Independent review of imaging (EKG, xrays, etc) (2 points, 2 max) Discussed case with consult/other MD/RN (2 points, 2 max) High Risk - qualify if have one of the following: Severe exacerbation of acute problem, acute mental status change, IV narcotics , monitoring drug levels (vancomycin, INR, tacrolimus etc) Evan Muhammad MD Sep 16, 2019 14:08
[2019-09-16 16:00] VITALS: BP 141/63
[2019-09-16] MEDS ORDERED: Vancomycin 1.25gm/NS Premix q24h IVPB SCH (16:00)
--- NOTE | 2019-09-16 16:15 | History and Physical Report ---
DATE OF ADMISSION: 09/15/2019 This is one of several admissions to [facility] of this 48-year-old patient because of chest pain. HISTORY OF PRESENT ILLNESS: The patient is a resident of an extended care facility subacute unit. The patient has been in stable condition for the last several months. She is known to have several chronic medical syndrome, but has been stable on current medication. On the day of admission, she complained of severe chest pain. She was transferred to [facility] ER. Assessment in the revealed that the patient has mildly elevated blood count. However, BUN was 183 and creatinine was 2.8. Her sodium is 125, potassium was 3.1, and magnesium was 4.1. Her ferritin was 1200. At the same time, her hemoglobin and hematocrit were 7.2 and 20.1. The patient received treatment for hyperkalemia and antibiotic in the emergency room and was transferred to the cardiac observation unit. PAST MEDICAL HISTORY: The patient has a longstanding history of schizophrenia, COPD. She has secondary to smoking. She developed respiratory failure, underwent tracheostomy and gastrostomy. Currently, she was successfully weaned for her tracheostomy. In addition, she has noncomminuted fracture of the left femur. She is status post pacemaker that was inserted in this hospital one year ago. ALLERGIES: No known drug allergies. MEDICATIONS: The patient is on levofloxacin 750 mg IV piggyback q.24 hours. She is on sertraline 100 mg daily. She is now on cefepime 1 g IV piggyback q.12 hours. She is on hydralazine 10 mg q.4 hours. She has respiratory therapy, albuterol sulfate and ipratropium bromide every six hours, and diltiazem 60 mg q.6 hours. She is on heparin 5000 units subcutaneously q.12 hours. She is on Zyprexa 2.5 mg daily, vitamin D 5000 units daily. She is on clonazepam 0.5 mg q.12 hours and 600 mg twice a day, metoprolol 50 mg daily. She is on oxycodone 5 mg G-tube q.4 hours. FAMILY HISTORY: Her father is alive and in good health. SOCIAL HISTORY: She is single. She was born in [place] and she has been on SSI for many years because of psychiatric issue prior to the appearance of her total disability. She was unemployed as well. HABITS: The patient did smoke one pack a day for more than 20 years. She denies drinking. Denies the use of illicit drugs. REVIEW OF SYSTEMS: The patient is unable to give any information regarding her state of health. She is awake, but cannot keep awake. PHYSICAL EXAMINATION: VITAL SIGNS: Blood pressure is 140/67, pulse is 70, respirations of 20, and temperature 97.7. HEENT: Eyes were normal. Pupils were round, equal, and reactive to light. Sclerae were white. Conjunctivae was pale. Extraocular movements were normal. Temporal arteries were palpable bilaterally. There was bilateral temporal wasting. Visual cervantes to confrontation and neglect sign could not be assessed. ENT: Mucous membranes were not dehydrated. Auditory canals were clear and tympanic membranes could not be visualized. The nasal cavity was not congested. Nasal septum was intact. Soft palate was free of ulcerations. Pharynx was clear from exudate or tonsillar hypertrophy. Uvula mohit to phonation. Tongue was dry, midline, and normally papillated. NECK: Supple. There was no goiter. No mass. No lymphadenopathy. There was no JVD. No bruits. Carotid upstroke was 2+. LUNGS: Clear. HEART: PMI was fifth left intercostal space in midclavicular line. There was normal S1 and normal S2. There was no murmur. No arrhythmia. No S3. No S4. No pericardial rub. ABDOMEN: Soft and nontender without organomegaly. There were no masses palpable. Normal bowel sounds without bruits. There was no guarding. No rebound tenderness. No ascites. No hernia. No CVA tenderness. Liver span was 8 cm, mostly nontender. EXTREMITIES: There was no cyanosis, no clubbing, and no edema. Extremities were warm. NEUROLOGICAL: Reflexes in biceps, triceps, and brachioradialis were present. Patellar retinaculum were present. Plantars were in flexion. Cranial nerves II through XII were symmetric and equal. Cerebellar function, there was no tremor. No nystagmus. No extrapyramidal rigidity. Sensory exam to pinprick, cotton touch, position, and motor sign could not be assessed because of the patient's clinical condition and lack of cooperation. LABORATORY AND DIAGNOSTIC DATA: Hemoglobin is 7.2, hematocrit is 20.1 with MCV of 92, WBC of 12.4, and platelets is 521. Her BUN and creatinine is 183 and 2.8 respectively. Her sodium is 125, potassium 3.1, chloride 85, CO2 is 23, phosphorus is 3.7, magnesium is 4.1. Iron 34, TIBC is 261, saturation is 13%, only 1 test was available in regard to infection. COVID-19 test was negative. Chest x-ray revealed fatty infiltrate and interstitial marking . The patient has cardiomegaly. PLAN: The patient is on Levaquin and cefepime, Levaquin 750 mg IV piggyback q.24 hours and cefepime 1 g IV piggyback q.12 hours. Repeat laboratory tests will be done in the a.m. Nephrology parts consultant and Hematology parts consultant were called to assist in the management of this case. Lucas Dong M.D. DR: RENETTA JOB#: [id number] CC:
--- NOTE | 2019-09-16 18:02 | Diagnostic Imaging Report ---
Indication: Abnormal renal function Technique: US Renal Comp Comparison: Correlation made to CT of the abdomen and pelvis 10/10/2017 Findings: There is ascites. There is moderate right-sided hydronephrosis. Renal echogenicity is increased. IVC is patent and normal in caliber. No significant hydronephrosis noted on the left. Echogenicity is increased. Question the presence of indwelling stents in the left ureter. Bladder is not well-visualized. IMPRESSION: Limited exam due to abdominal ascites and shadowing from bowel gas. CT recommended for more sensitive evaluation. Moderate right hydronephrosis. Increased renal parenchymal echogenicity suggesting intrinsic/medical renal disease. Question indwelling left ureteral stent versus artifact. Bladder not visualized.
[2019-09-16 20:00] VITALS: BP 154/74
[2019-09-16] MEDS: Sertraline 100mg tab GT SCH (20:21)
[2019-09-16] MEDS ORDERED: Epoetin Alfa-EPBX (NON ESRD)10,000 unit/ml vial SUBQ SCH (21:00)
[2019-09-17] VITALS (17 sets, daily range): BP systolic 134–186; BP diastolic 46–67
[2019-09-17] MEDS: HYDROcodone/Acetamin 10/325 tab GT PRN ×2 (00:05→17:20)
[2019-09-17] MEDS: Albuterol/Ipratropium 3ml neb HHN SCH ×5 (01:01→20:31)
[2019-09-17] MEDS: D5NS 1,000 ML IV SCH ×3 (02:16→23:18)
[2019-09-17] MEDS: oxyCODONE 5mg IR tab GT PRN ×2 (02:17→06:32)
[2019-09-17] MEDS: Cefepime HCl 1 GM in D5W 55 ML IVPB SCH (03:10)
[2019-09-17] MEDS ORDERED: Albuterol/Ipratropium 3ml neb HHN PRN (04:15)
[2019-09-17] MEDS: dilTIAZem HCl 60mg tab GT SCH ×4 (05:17→23:19)
[2019-09-17] MEDS: HydrALAZINE 50mg tab GT SCH ×4 (05:18→23:19)
[2019-09-17] MEDS ORDERED: Ipratropium 0.02% Inh Soln 2.5ml UD HHN PRN (06:00)
[2019-09-17 07:53] LABS: HEMATOCRIT 29.3 % (37.0-47.0); MEAN CORPUSCULAR VOLUME 93 FL (80-99); PLATELET COUNT 454 K/UL (150-450); RED BLOOD COUNT 3.15 M/UL (4.20-5.40); RED CELL DISTRIBUTION WIDTH 15.3 % (11.6-14.8); WHITE BLOOD COUNT 12.6 K/UL (4.8-10.8)
[2019-09-17 08:22] LABS: ALANINE AMINOTRANSFERASE 17 U/L (12-78); ALBUMIN 2.5 G/DL (3.4-5.0); ALBUMIN/GLOBULIN RATIO 0.5 (1.0-2.7); ALKALINE PHOSPHATASE 168 U/L (46-116); ANION GAP 15 mmol/L (5-15); ASPARTATE AMINO TRANSFERASE 23 U/L (15-37); BILIRUBIN,TOTAL 0.4 MG/DL (0.2-1.0); BLOOD UREA NITROGEN 155 mg/dL (7-18); CALCIUM 8.7 MG/DL (8.5-10.1); CARBON DIOXIDE 22 MMOL/L (21-32); CHLORIDE 97 MMOL/L (98-107); CREATININE 2.6 MG/DL (0.55-1.30); PHOSPHORUS 3.4 MG/DL (2.5-4.9); SODIUM 133 MMOL/L (136-145)
[2019-09-17] MEDS: Docusate 100mg/10ml Liq GT SCH ×3 (08:58→17:19)
[2019-09-17] MEDS: OLANZapine 2.5mg tab GT SCH (08:59)
[2019-09-17] MEDS: Metoprolol Tartrate 50mg tab GT SCH ×2 (08:59→21:46)
[2019-09-17] MEDS: clonazePAM 0.5mg tab GT SCH ×2 (08:59→21:46)
[2019-09-17] MEDS: Heparin 5000 units/ml inj SUBQ SCH ×2 (09:00→21:00)
[2019-09-17] MEDS ORDERED: D5NS 1,000 ML IV SCH (11:15)
--- NOTE | 2019-09-17 11:40 | Consultation ---
Castro Yara SCARF AND ANNEAL OPERATOR 09/17/19 1140: History of Present Illness General Date patient seen: Sep 17, 2019 Time patient seen: 11:00 Chief Complaint: SOB, Referring physician: dr Dong Reason for Consultation: acute resp failure Present Illness HPI 49 years old female with past medical history of COPD, chronic respiratory failure ,tracheostomy status ,dysphagia, feeding by G-tube, A fib, HTN, schizophrenia, initially presented to the hospital with shortness of breath and chest pain . Apparently she woke up with bleeding from her mouth and then complained of shortness of breath and chest pain . Patient was [facility] in by paramedics from the [facility]. Patient received aspirin, nitroglycerin en route with not much relief. Patient denied any recent trauma or injury. Vital signs were stable. Chest x-ray revealed bilateral airspace opacities , preferentially involving the right lung , consistent with multifocal infiltrates . Laboratory work-up revealed leukocytosis with WBC 12.4, hemoglobin 7.2, hematocrit 20.1, platelet count 521. Sodium 124, potassium 2.7. BUN 188, creatinine 2.9. Troponin 0.015. Urinalysis revealed findings c/w with UTI. Patient subsequently was admitted to telemetry floor for sepsis , pneumonia, UTI, chronic respiratory failure , acute renal failure with electrolyte abnormalities and anemia. Today patient was complaining of difficulty breathing and was very short of breath. Patient was transferred to ICU. Pulmonary consult was requested to assist in management of this patient. Allergies: Coded Allergies: No Known Allergies (Unverified , 10/10/17) Medication History Scheduled Amlodipine Besylate (Norvasc), 10 MG GT DAILY, (Reported) Clonazepam* (Klonopin*), 1 MG GT Q12HR, (Reported) Diltiazem Hcl* (Cardizem*), 90 MG GT EVERY 6 HOURS, (Reported) Docusate Sodium* (Colace*), 100 MG GT DAILY, (Reported) Gemfibrozil* (Lopid*), 500 MG GT TWICE A DAY, (Reported) Glycopyrrolate (Glycopyrrolate), 1 MG GT THREE TIMES A DAY, (Reported) Heparin Sod (Porcine) (Heparin Sodium*), 5,000 UNITS SUBQ EVERY 8 HOURS, ( Reported) Hydralazine Hcl* (Hydralazine Hcl*), 100 MG ORAL EVERY 8 HOURS, (Reported) Magnesium Hydroxide* (Milk Of Magnesia*), 30 ML GT DAILY, (Reported) Meropenem (Merrem), 1 GM IV EVERY 12 HOURS Metoprolol Tartrate* (Metoprolol Tartrate*), 50 MG GT EVERY 12 HOURS, (Reported) Olanzapine (Zyprexa), 7.5 MG GT DAILY, (Reported) Sennosides (Senna), 8.6 MG GT BEDTIME, (Reported) Sertraline Hcl* (Zoloft*), 100 MG GT DAILY, (Reported) Vancomycin In Dextrose,Iso-Osm (Vancomycin 750 Mg/150 Ml Bag), 750 MG IV DAILY Scheduled PRN Bisacodyl (Dulcolax), 10 MG RC DAILY PRN for Constipation, (Reported) Hydrocodone Bit/Acetaminophen 10-325* ([place] 10-325*), 1 TAB GT Q6H PRN for For Pain, (Reported) Melatonin (Melatonin), 6 MG GT BEDTIME PRN for Insomnia, (Reported) Metoclopramide Hcl* (Metoclopramide Hcl*), 10 MG ORAL EVERY 6 HOURS PRN for Nausea & Vomiting, (Reported) Na Phos,M-B/Na Phos,Di-Ba* (Fleet Enema*), 133 ML RECTAL DAILY PRN for Constipation, (Reported) Oxycodone Hcl* (Oxycodone Hcl*), 5 MG GT Q4H PRN for For Pain, (Reported) Miscellaneous Medications Acetaminophen (Tylenol), 325 MG GT, (Reported) Albuterol Sulfate (Proventil Hfa), 6.7 GM IH, (Reported) Ipratropium [place] (Atrovent Hfa), 12.9 GM IH, (Reported) Patient History Healthcare decision maker Resuscitation status Full code Advanced Directive on File Past Medical/Surgical History Past Medical/Surgical History: (1) COPD with exacerbation (2) Tracheostomy in place (3) Feeding by G-tube (4) Chronic respiratory failure Review of Systems ROS Narrative not available due tp pt medical condition Physical Exam General Appearance: no apparent distress, other - bedridden middle age chroncially ill looking female on vent AC 450-12-80% PEEP 5 Lines, tubes and drains: peripheral HEENT: normocephalic, atraumatic, anicteric, status post trach - Shiley #7, secretions scant amount, yellow color, thick consistency Respiratory/Chest: no accessory muscle use, rhonchi - bilaterally - few scattered rhoinchi bilaterally Cardiovascular/Chest: normal rate, regular rhythm - SR on tele Abdomen: normal bowel sounds, non tender, soft, other - G tube Genitourinary/Rectal: raymond Extremities: no edema Skin Exam: warm/dry, other - multiple tattoos all over the body Neurologic: abnormal gait, other - asleep, arousable Musculoskeletal: atrophy - BLE Last 24 Hour Vital Signs Date Time Temp Pulse Resp B/P (MAP) Pulse Ox O2 Delivery O2 Flow Rate FiO2 09/17/19 11:00 62 14 156/52 (86) 97 09/17/19 10:50 80 09/17/19 10:42 80 09/17/19 10:36 97.5 64 25 176/61 (99) 93 09/17/19 10:35 64 33 100 09/17/19 10:15 Mechanical Ventilator 09/17/19 09:00 Trach Collar 10.0 09/17/19 08:59 75 158/56 09/17/19 08:00 97.9 75 22 158/56 (90) 85 09/17/19 07:49 93 T-Piece 20.0 100 09/17/19 07:29 75 09/17/19 05:18 160/53 09/17/19 05:17 72 160/53 09/17/19 04:00 97.7 76 22 160/53 (88) 91 09/17/19 04:00 72 09/17/19 01:15 92 T-Piece 20.0 70 09/17/19 01:12 61 20 92 T-Piece 20.0 70 64 20 91 09/17/19 00:00 70 09/17/19 00:00 97.5 80 26 134/67 (89) 91 09/16/19 23:33 134/67 09/16/19 23:32 65 134/67 09/16/19 21:00 Trach Collar 10.0 09/16/19 20:20 89 154/74 09/16/19 20:00 98.2 90 26 154/74 (100) 90 09/16/19 20:00 72 09/16/19 19:54 92 T-Piece 12.0 40 09/16/19 19:50 86 20 95 T-Piece 12.0 40 84 20 92 09/16/19 17:42 141/63 09/16/19 17:42 78 141/63 09/16/19 16:00 98.6 84 24 141/63 (89) 92 09/16/19 16:00 68 09/16/19 12:47 73 20 92 T-Piece 12.0 40 73 20 89 09/16/19 12:47 92 12.0 40 09/16/19 12:24 70 142/54 09/16/19 12:00 97.7 70 24 142/54 (83) 94 09/16/19 12:00 66 Intake and Output 09/16/19 09/17/19 19:00 07:00 Intake Total 852.5 ml 1706.25 ml Output Total 950 ml Balance 852.5 ml 756.25 ml Intake Free Water 200 ml IV Total 402.5 ml 1011.25 ml Tube Feeding 450 ml 495 ml Output Urine Total 950 ml # Bowel Movements 5 Laboratory Tests Test 09/17/19 07:24 09/17/19 07:30 Arterial Blood pH 7.353 (7.350-7.450) Arterial Blood Partial Pressure CO2 35.6 mmHg (35.0-45.0) Arterial Blood Partial Pressure O2 43.5 mmHg (75.0-100.0) Arterial Blood HCO3 19.3 mmol/L (22.0-26.0) L Arterial Blood Oxygen Saturation 78.2 % (95-100) *L Arterial Blood Base Excess -5.6 (-2-2) L Rojas Test Positive White Blood Count 12.6 K/UL (4.8-10.8) H Red Blood Count 3.15 M/UL (4.20-5.40) L Hemoglobin 10.0 G/DL (12.0-16.0) L Hematocrit 29.3 % (37.0-47.0) L Mean Corpuscular Volume 93 FL (80-99) Mean Corpuscular Hemoglobin 31.7 PG (27.0-31.0) H Mean Corpuscular Hemoglobin Concent 34.1 G/DL (32.0-36.0) Red Cell Distribution Width 15.3 % (11.6-14.8) H Platelet Count 454 K/UL (150-450) H Mean Platelet Volume 4.4 FL (6.5-10.1) L Neutrophils (%) (Auto) % (45.0-75.0) Lymphocytes (%) (Auto) % (20.0-45.0) Monocytes (%) (Auto) % (1.0-10.0) Eosinophils (%) (Auto) % (0.0-3.0) Basophils (%) (Auto) % (0.0-2.0) Differential Total Cells Counted 100 Neutrophils % (Manual) 80 % (45-75) H Lymphocytes % (Manual) 16 % (20-45) L Monocytes % (Manual) 3 % (1-10) Eosinophils % (Manual) 1 % (0-3) Basophils % (Manual) 0 % (0-2) Band Neutrophils 0 % (0-8) Platelet Estimate Adequate Platelet Morphology Normal Hypochromasia 1+ Anisocytosis 1+ Sodium Level 133 MMOL/L (136-145) L Potassium Level 3.0 MMOL/L (3.5-5.1) L Chloride Level 97 MMOL/L (98-107) L Carbon Dioxide Level 22 MMOL/L (21-32) Anion Gap 15 mmol/L (5-15) Blood Urea Nitrogen 155 mg/dL (7-18) H Creatinine 2.6 MG/DL (0.55-1.30) H Estimat Glomerular Filtration Rate 19.7 mL/min (>60) Glucose Level 93 MG/DL (74-106) Uric Acid 8.0 MG/DL (2.6-7.2) H Calcium Level 8.7 MG/DL (8.5-10.1) Phosphorus Level 3.4 MG/DL (2.5-4.9) Magnesium Level 3.7 MG/DL (1.8-2.4) H Total Bilirubin 0.4 MG/DL (0.2-1.0) Aspartate Amino Transf (AST/SGOT) 23 U/L (15-37) Alanine Aminotransferase (ALT/SGPT) 17 U/L (12-78) Alkaline Phosphatase 168 U/L (46-116) H C-Reactive Protein, Quantitative 6.1 mg/dL (0.00-0.90) H Pro-B-Type Natriuretic Peptide > 21398 pg/mL (0-125) H Total Protein 7.4 G/DL (6.4-8.2) Albumin 2.5 G/DL (3.4-5.0) L Globulin 4.9 g/dL Albumin/Globulin Ratio 0.5 (1.0-2.7) L Random Vancomycin Level 20.7 ug/mL Microbiology Date/Time Source Procedure Growth Status 09/16/19 15:30 Nasopharynx SARS-CoV-2 RdRp Gene Assay - Final Complete Height (Feet): 5 Height (Inches): 5.00 Weight (Pounds): 120 Medications Current Medications Medications (Trade) Dose Ordered Sig/Penny Route PRN Reason Start Time Stop Time Status Last Admin Dose Admin Acetaminophen/ Hydrocodone Bitart ([place] 10/325) 1 tab Q6H PRN GT For Pain 09/17/19 13:30 09/22/19 07:29 Albuterol/ Ipratropium (Albuterol/ Ipratropium) 3 ml Q6HRT HHN 09/17/19 13:00 09/20/19 12:59 Cefepime HCl 1 gm/ Dextrose 55 ml @ 110 mls/hr Q24H IVPB 09/18/19 03:00 09/25/19 02:59 Clonazepam (KlonoPIN) 0.5 mg Q12HR GT 09/17/19 21:00 09/22/19 08:59 Dextrose/Sodium Chloride 1,000 ml @ 75 mls/hr [id number] IV 09/17/19 11:15 10/16/19 12:59 09/17/19 11:16 Diltiazem HCl (Cardizem Tab) 60 mg EVERY 6 HOURS GT 09/17/19 12:00 10/15/19 11:59 Docusate Sodium (Colace) 100 mg TID GT 09/17/19 13:00 10/15/19 08:59 Epoetin Gelacio (Epoetin Gelacio-EPBX(NON ESRD)) 10,000 unit MON-MON-MON SUBQ 09/18/19 21:00 12/15/19 20:59 Heparin Sodium (Porcine) (Heparin 5000 units/ml) 5,000 units EVERY 12 HOURS SUBQ 09/17/19 21:00 10/30/19 08:59 Hydralazine HCl (Apresoline) 10 mg Q4H PRN IV BP over 160 systolic 09/17/19 11:15 12/14/19 11:14 Hydralazine HCl (Apresoline) 50 mg Q6HR GT 09/17/19 12:00 12/15/19 17:59 Ipratropium [place] (Atrovent) 500 mcg Q4H PRN HHN Shortness of Breath 09/17/19 11:15 09/22/19 11:14 Levofloxacin 50 ml @ 50 mls/hr Q24H IVPB 09/17/19 21:00 09/22/19 20:59 Metoprolol Tartrate (Lopressor) 50 mg EVERY 12 HOURS GT 09/17/19 21:00 12/14/19 08:59 Olanzapine (ZyPREXA) 2.5 mg DAILY GT 09/18/19 09:00 10/30/19 08:59 Oxycodone HCl (Roxicodone) 5 mg Q4H PRN GT Severe Pain (Pain Scale 7-10) 09/17/19 11:15 09/22/19 11:14 Sertraline HCl (Zoloft) 100 mg BEDTIME GT 09/17/19 21:00 10/15/19 20:59 Vancomycin HCl (Vanco pharmacy to dose) 1 ea DAILY PRN MISC Per rx protocol 09/18/19 09:00 10/16/19 13:44 Vancomycin HCl 500 mg/Dextrose 110 ml @ 110 mls/hr ONCE ONCE IVPB 09/17/19 21:00 09/17/19 21:59 Assessment/Plan Assessment/Plan: ASSESSMENT Acute on chronic respiratory failure Tracheostomy status Sepsis Pneumonia UTI COPD Acute kidney injury and chronic kidney disease Hypertension Atrial fibrillation Dysphagia , feeding by G-tube Electrolyte abnormalities Anemia Toxic metabolic encephalopathy likely due to sepsis and ARF HTN PAF PLAN OF CARE ICU on vent AC now need vent support repeat ABG later today and titrate settings based on ABG results fup with CXR trach care ,pulmonary toilet rapid COVID 19 NGT abx as per ID SCX UCX BCX aspiration precautions venous Duplex BLE DVT prophylaxis monitor volumes now with IVF monitor renal parameters, lytes, correct lytes as needed , avoid nephrotoxics hypo Na resolved - per nephro management BP management with current regimen of BB, Cardizem and Hydralazine, remains in SR monitor HH with goal to keep Hgb >7, heme on board on EPO supportive care pain management wound care bowel regimen thank you for a consult case discussed and evaluated by supervising physician Bang Guardado MD 09/17/19 3118: History of Present Illness General Chief Complaint: SOB, Present Illness Allergies: Coded Allergies: No Known Allergies (Unverified , 10/10/17) Medication History Scheduled Amlodipine Besylate (Norvasc), 10 MG GT DAILY, (Reported) Clonazepam* (Klonopin*), 1 MG GT Q12HR, (Reported) Diltiazem Hcl* (Cardizem*), 90 MG GT EVERY 6 HOURS, (Reported) Docusate Sodium* (Colace*), 100 MG GT DAILY, (Reported) Gemfibrozil* (Lopid*), 500 MG GT TWICE A DAY, (Reported) Glycopyrrolate (Glycopyrrolate), 1 MG GT THREE TIMES A DAY, (Reported) Heparin Sod (Porcine) (Heparin Sodium*), 5,000 UNITS SUBQ EVERY 8 HOURS, ( Reported) Hydralazine Hcl* (Hydralazine Hcl*), 100 MG ORAL EVERY 8 HOURS, (Reported) Magnesium Hydroxide* (Milk Of Magnesia*), 30 ML GT DAILY, (Reported) Meropenem (Merrem), 1 GM IV EVERY 12 HOURS Metoprolol Tartrate* (Metoprolol Tartrate*), 50 MG GT EVERY 12 HOURS, (Reported) Olanzapine (Zyprexa), 7.5 MG GT DAILY, (Reported) Sennosides (Senna), 8.6 MG GT BEDTIME, (Reported) Sertraline Hcl* (Zoloft*), 100 MG GT DAILY, (Reported) Vancomycin In Dextrose,Iso-Osm (Vancomycin 750 Mg/150 Ml Bag), 750 MG IV DAILY Scheduled PRN Bisacodyl (Dulcolax), 10 MG RC DAILY PRN for Constipation, (Reported) Hydrocodone Bit/Acetaminophen 10-325* ([place] 10-325*), 1 TAB GT Q6H PRN for For Pain, (Reported) Melatonin (Melatonin), 6 MG GT BEDTIME PRN for Insomnia, (Reported) Metoclopramide Hcl* (Metoclopramide Hcl*), 10 MG ORAL EVERY 6 HOURS PRN for Nausea & Vomiting, (Reported) Na Phos,M-B/Na Phos,Di-Ba* (Fleet Enema*), 133 ML RECTAL DAILY PRN for Constipation, (Reported) Oxycodone Hcl* (Oxycodone Hcl*), 5 MG GT Q4H PRN for For Pain, (Reported) Miscellaneous Medications Acetaminophen (Tylenol), 325 MG GT, (Reported) Albuterol Sulfate (Proventil Hfa), 6.7 GM IH, (Reported) Ipratropium [place] (Atrovent Hfa), 12.9 GM IH, (Reported) Assessment/Plan Assessment/Plan: Patient seen and examined with SCARF AND ANNEAL OPERATOR. Agree with above A&P as it reflects our joint deliberations. Acute hypoxemic respiratory failure Trach status Pulmonary edema Possible pneumonia JAVIER vs CKD CHF, ?cardiorenal Cont vent support, wean FiO2 May need trach change to cuffed if cannot get off ventilator Lasix 20 mg IV x 1, discussed with renal Thoracentesis eval Check 2D Echo Yara Castro NP Sep 17, 2019 11:40 Bang Guardado MD Sep 17, 2019 17:38
--- NOTE | 2019-09-17 12:07 | Infectious Diseases Prog Note ---
Assessment/Plan Assessment: Acute hypoxic resp failure- now on MV Fio2 80% - r.o PE Pneumonia- COVID19 neg x2 -09/15 Rapid COVID pCR neg -09/14 CXR: Bilateral airspace opacities, preferentially involving the right lung, consistent with multifocal infiltrate. Trace bilateral pleural effusions. No pneumothorax. rapid COVID PCR neg Gram positive bacteremia- real vs contaminant; does have hx of infected PPM- could be a possibility- ro endocarditis -09/14 Bcx 2/4 GPC clusters; 09/15 Bcx p UTI -09/14 u/a wbc tnct, nit neg, leuk +3; ucx >100k MDR P. stuarti (S Ceftriaxone , Meropenem) Afebrile Leukocytosis, mild JAVIER on CKD, improving -Renal US: Limited exam due to abdominal ascites and shadowing from bowel gas. CT recommended for more sensitive evaluation. Moderate right hydronephrosis. Increased renal parenchymal echogenicity suggesting intrinsic/ medical renal disease. Question indwelling left ureteral stent versus artifact. Bladder not visualized. 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 epi-11/2018, sp > 6weeks IV vancomycin -11/27 SP ABBIE: no evidence for vegetation on any of the valves -11/26/18 SP PPM removal: -OR findings:The fibrous capsule enclosing the generator was then opened and there was a [id number] amount of yellowish fluid drainage. The generator was then removed.Atrial and ventricular leads were detached. The necrotic tissue of the pocket was then removed and the pocket was flushed with an antibiotic solution. -Capsule, wound tissue and lead tip cx: Neg -2d echo: no vegetation seen -US chest: 4.6 x 3.4 x 0.9 cm hypoechoic/anechoic area overlying left chest pacemaker power pack. This could represent either a discrete fluid collection or a focal area of very edematous tissue. Infected fluid pocket also possible. -11/18 Bcx 3/4 S. epi; 11/20 Bcx neg; 11/24 Bcx Neg; 11/27 Bcx Neg Hx of PNA -11/2019 sp cx PsA (arnett S), ABC (I Ceftriaxone; otherwise negative) - -sp cx MRSA, ABC (I Ceftriaxone; otherwise S) Afib HTN dysphagia sp GT aortic dissection s/p repair 2017, s/p PPM Parkinson's Disease schizophrenia anxiety COPD chronic resp failure s/p trach hx of tracheal bleeding NH resident ([facility]) Plan: -Switch empiric Cefepime and Levaquin #3 to Meropenem -empiric IV Vancomycin #2 for GPC bacteremia -f/u cx -Monitor CBC/CMP, temperatures -f/u Bcx x2, sp cx -f/u 2d echo -COVID19 neg x2 -f/u CXR -V. duplex BLE -ICU/ trach/ peg care -aspiration precautions Thank you for this consultation. Will continue to follow along with you. Discussed with RN. Subjective Allergies: Coded Allergies: No Known Allergies (Unverified , 10/10/17) was transferred to ICU due to desaturation; now placed on MV, FIo2 80%, PEEP 5 afebrile Objective Last 24 Hour Vital Signs Date Time Temp Pulse Resp B/P (MAP) Pulse Ox O2 Delivery O2 Flow Rate FiO2 09/17/19 11:35 63 159/55 09/17/19 11:34 159/55 09/17/19 11:00 62 14 156/52 (86) 97 09/17/19 10:50 80 09/17/19 10:42 80 09/17/19 10:36 97.5 64 25 176/61 (99) 93 09/17/19 10:35 64 33 100 09/17/19 10:15 Mechanical Ventilator 09/17/19 09:00 Trach Collar 10.0 09/17/19 08:59 75 158/56 09/17/19 08:00 97.9 75 22 158/56 (90) 85 09/17/19 07:49 93 T-Piece 20.0 100 09/17/19 07:29 75 09/17/19 05:18 160/53 09/17/19 05:17 72 160/53 09/17/19 04:00 97.7 76 22 160/53 (88) 91 09/17/19 04:00 72 09/17/19 01:15 92 T-Piece 20.0 70 09/17/19 01:12 61 20 92 T-Piece 20.0 70 64 20 91 09/17/19 00:00 70 09/17/19 00:00 97.5 80 26 134/67 (89) 91 09/16/19 23:33 134/67 09/16/19 23:32 65 134/67 09/16/19 21:00 Trach Collar 10.0 09/16/19 20:20 89 154/74 09/16/19 20:00 98.2 90 26 154/74 (100) 90 09/16/19 20:00 72 09/16/19 19:54 92 T-Piece 12.0 40 09/16/19 19:50 86 20 95 T-Piece 12.0 40 84 20 92 09/16/19 17:42 141/63 09/16/19 17:42 78 141/63 09/16/19 16:00 98.6 84 24 141/63 (89) 92 09/16/19 16:00 68 09/16/19 12:47 73 20 92 T-Piece 12.0 40 73 20 89 09/16/19 12:47 92 12.0 40 09/16/19 12:24 70 142/54 09/16/19 12:00 97.7 70 24 142/54 (83) 94 09/16/19 12:00 66 Height (Feet): 5 Height (Inches): 5.00 Weight (Pounds): 120 Cardiovascular: RSR Respiratory: decreased breath sounds Abdomen: soft, non-tender, present bowel sounds Extremities: no edema, no tenderness, no cyanosis Microbiology Date/Time Source Procedure Growth Status 09/15/19 03:30 Blood Blood Culture - Preliminary Resulted 09/15/19 03:15 Blood Blood Culture - Preliminary Gram Positive Cocci Resulted 09/16/19 15:30 Nasopharynx SARS-CoV-2 RdRp Gene Assay - Final Complete 09/15/19 02:15 Nasopharynx SARS-CoV-2 RdRp Gene Assay - Final Complete 09/15/19 02:15 Urine,Clean Catch Urine Culture - Final Providencia Stuartii Complete Laboratory Tests Test 09/17/19 07:24 09/17/19 07:30 Arterial Blood pH 7.353 (7.350-7.450) Arterial Blood Partial Pressure CO2 35.6 mmHg (35.0-45.0) Arterial Blood Partial Pressure O2 43.5 mmHg (75.0-100.0) Arterial Blood HCO3 19.3 mmol/L (22.0-26.0) L Arterial Blood Oxygen Saturation 78.2 % (95-100) *L Arterial Blood Base Excess -5.6 (-2-2) L Rojas Test Positive White Blood Count 12.6 K/UL (4.8-10.8) H Red Blood Count 3.15 M/UL (4.20-5.40) L Hemoglobin 10.0 G/DL (12.0-16.0) L Hematocrit 29.3 % (37.0-47.0) L Mean Corpuscular Volume 93 FL (80-99) Mean Corpuscular Hemoglobin 31.7 PG (27.0-31.0) H Mean Corpuscular Hemoglobin Concent 34.1 G/DL (32.0-36.0) Red Cell Distribution Width 15.3 % (11.6-14.8) H Platelet Count 454 K/UL (150-450) H Mean Platelet Volume 4.4 FL (6.5-10.1) L Neutrophils (%) (Auto) % (45.0-75.0) Lymphocytes (%) (Auto) % (20.0-45.0) Monocytes (%) (Auto) % (1.0-10.0) Eosinophils (%) (Auto) % (0.0-3.0) Basophils (%) (Auto) % (0.0-2.0) Differential Total Cells Counted 100 Neutrophils % (Manual) 80 % (45-75) H Lymphocytes % (Manual) 16 % (20-45) L Monocytes % (Manual) 3 % (1-10) Eosinophils % (Manual) 1 % (0-3) Basophils % (Manual) 0 % (0-2) Band Neutrophils 0 % (0-8) Platelet Estimate Adequate Platelet Morphology Normal Hypochromasia 1+ Anisocytosis 1+ Sodium Level 133 MMOL/L (136-145) L Potassium Level 3.0 MMOL/L (3.5-5.1) L Chloride Level 97 MMOL/L (98-107) L Carbon Dioxide Level 22 MMOL/L (21-32) Anion Gap 15 mmol/L (5-15) Blood Urea Nitrogen 155 mg/dL (7-18) H Creatinine 2.6 MG/DL (0.55-1.30) H Estimat Glomerular Filtration Rate 19.7 mL/min (>60) Glucose Level 93 MG/DL (74-106) Uric Acid 8.0 MG/DL (2.6-7.2) H Calcium Level 8.7 MG/DL (8.5-10.1) Phosphorus Level 3.4 MG/DL (2.5-4.9) Magnesium Level 3.7 MG/DL (1.8-2.4) H Total Bilirubin 0.4 MG/DL (0.2-1.0) Aspartate Amino Transf (AST/SGOT) 23 U/L (15-37) Alanine Aminotransferase (ALT/SGPT) 17 U/L (12-78) Alkaline Phosphatase 168 U/L (46-116) H C-Reactive Protein, Quantitative 6.1 mg/dL (0.00-0.90) H Pro-B-Type Natriuretic Peptide > 72480 pg/mL (0-125) H Total Protein 7.4 G/DL (6.4-8.2) Albumin 2.5 G/DL (3.4-5.0) L Globulin 4.9 g/dL Albumin/Globulin Ratio 0.5 (1.0-2.7) L Random Vancomycin Level 20.7 ug/mL Current Medications Medications (Trade) Dose Ordered Sig/Penny Route PRN Reason Start Time Stop Time Status Last Admin Dose Admin Acetaminophen/ Hydrocodone Bitart ([place] 10/325) 1 tab Q6H PRN GT For Pain 09/17/19 13:30 09/22/19 07:29 Albuterol/ Ipratropium (Albuterol/ Ipratropium) 3 ml Q6HRT HHN 09/17/19 13:00 09/20/19 12:59 Cefepime HCl 1 gm/ Dextrose 55 ml @ 110 mls/hr Q24H IVPB 09/18/19 03:00 09/25/19 02:59 Clonazepam (KlonoPIN) 0.5 mg Q12HR GT 09/17/19 21:00 09/22/19 08:59 Dextrose/Sodium Chloride 1,000 ml @ 75 mls/hr [id number] IV 09/17/19 11:15 10/16/19 12:59 09/17/19 11:16 Diltiazem HCl (Cardizem Tab) 60 mg EVERY 6 HOURS GT 09/17/19 12:00 10/15/19 11:59 09/17/19 11:35 Docusate Sodium (Colace) 100 mg TID GT 09/17/19 13:00 10/15/19 08:59 Epoetin Gelacio (Epoetin Gelacio-EPBX(NON ESRD)) 10,000 unit MON-MON-MON SUBQ 09/18/19 21:00 12/15/19 20:59 Heparin Sodium (Porcine) (Heparin 5000 units/ml) 5,000 units EVERY 12 HOURS SUBQ 09/17/19 21:00 10/30/19 08:59 Hydralazine HCl (Apresoline) 10 mg Q4H PRN IV BP over 160 systolic 09/17/19 11:15 12/14/19 11:14 Hydralazine HCl (Apresoline) 50 mg Q6HR GT 09/17/19 12:00 12/15/19 17:59 09/17/19 11:34 Ipratropium [place] (Atrovent) 500 mcg Q4H PRN HHN Shortness of Breath 09/17/19 11:15 09/22/19 11:14 Levofloxacin 50 ml @ 50 mls/hr Q24H IVPB 09/17/19 21:00 09/22/19 20:59 Metoprolol Tartrate (Lopressor) 50 mg EVERY 12 HOURS GT 09/17/19 21:00 12/14/19 08:59 Olanzapine (ZyPREXA) 2.5 mg DAILY GT 09/18/19 09:00 10/30/19 08:59 Oxycodone HCl (Roxicodone) 5 mg Q4H PRN GT Severe Pain (Pain Scale 7-10) 09/17/19 11:15 09/22/19 11:14 Sertraline HCl (Zoloft) 100 mg BEDTIME GT 09/17/19 21:00 10/15/19 20:59 Vancomycin HCl (Vanco pharmacy to dose) 1 ea DAILY PRN MISC Per rx protocol 09/18/19 09:00 10/16/19 13:44 Vancomycin HCl 500 mg/Dextrose 110 ml @ 110 mls/hr ONCE ONCE IVPB 09/17/19 21:00 09/17/19 21:59 Doreen Nino M.D. Sep 17, 2019 12:07
--- NOTE | 2019-09-17 13:25 | Diagnostic Imaging Report ---
Procedure: XRAY Chest 1v Reason for study: Reason For Exam: SOB Comparison films: 09/15/2019. FINDINGS: Tracheostomy remains in place. There is worsening of right lung infiltrates. Cardiomegaly unchanged. There is increased right effusion. The bony thorax appear unremarkable. IMPRESSION: Worsening of right lung infiltrates and right effusion.
--- NOTE | 2019-09-17 13:35 | General Progress Note ---
Assessment/Plan Assessment/Plan: Assessment and Recs # Leukocytosis, now with gram positive bacteremiaas well as pna noted --> historically --> PPM site (pocket) infection (redness and pain, bacteremia) and likely pocket abscess - no vegetation seen on ABBIE --> is s'p pm removal and also pocket infection is better --> per cards recs in re to tach/davis --> wbc 15-->19-->17-->15-->13->12 --> ABX cefepime/levaquin--> vanc/angelo --> ID recs are noted # Anemia of chronic disease due to underlying chronic medical issues, multifactorial --> Anemia workup has been reviewed, cw acd --> No evidence of hemolysis is noted, peripheral smear has been reviewed. --> Hgb goal >7. Transfuse prn. --> Epogen started --> Medications have been reviewed --> low threshold for gi evaluation in case has occult + --> hgb 7.1-->7.8-->8.9->9.2-->8.5-->9.7-->10 # Thrombocytois is likely reactive process, is s/p infection --> plt trend 610k-->706k --> p smear reviewed # Acute hypoxic respiratory failure s/p intubation 11/23- ?ARDS --> on vent/trach # Gram positive bacteremia- real bacteremia- 2ry to above and probable PNA --> per id care # JAVIER initially >2 --> now improved with D5w # Dysphagia s/p peg # Thoracic aortic dissection s/p repair early 2017 # [place] resident # Dvt ppx heparin sq The timing of this note does not necessarily reflect the time of the patient was seen. Greatly appreciate consultation. Subjective Constitutional: Denies: no symptoms, chills, diaphoresis, fever, malaise, weakness, other HEENT: Denies: no symptoms, eye pain, blurred vision, tearing, double vision, ear pain, ear discharge, nose pain, nose congestion, throat pain, throat swelling, mouth pain, mouth swelling, other Cardiovascular: Denies: no symptoms, chest pain, edema, irregular heart rate, lightheadedness, palpitations, syncope, other Respiratory: Denies: no symptoms, cough, orthopnea, shortness of breath, SOB with excertion, SOB at rest, sputum, stridor, wheezing, other Gastrointestinal/Abdominal: Denies: no symptoms, abdomen distended, abdominal pain, black stools, tarry stools, blood in stool, constipated, diarrhea, difficulty swallowing, nausea, poor appetite, poor fluid intake, rectal bleeding , vomiting, other Genitourinary: Denies: no symptoms, burning, discharge, frequency, flank pain, hematuria, incontinence, pain, urgency, other Neurologic/Psychiatric: Denies: no symptoms, anxiety, depressed, emotional problems, headache, numbness, paresthesia, pre-existing deficit, seizure, tingling, tremors, weakness, other Endocrine: Denies: no symptoms, excessive sweating, flushing, intolerance to cold, intolerance to heat, increased hunger, increased thirst, increased urine, unexplained weight gain, unexplained weight loss, other Hematologic/Lymphatic: Denies: no symptoms, anemia, easy bleeding, easy bruising, other Allergies: Coded Allergies: No Known Allergies (Unverified , 10/10/17) Subjective 09/16 on vent now, consulted in am pulm, on vent setting, labs noted, hep sq Objective Last 24 Hour Vital Signs Date Time Temp Pulse Resp B/P (MAP) Pulse Ox O2 Delivery O2 Flow Rate FiO2 09/17/19 13:00 61 18 156/46 (82) 95 09/17/19 12:53 59 15 80 09/17/19 12:00 97.5 62 19 147/49 (81) 94 09/17/19 12:00 Mechanical Ventilator 09/17/19 11:35 63 159/55 09/17/19 11:34 159/55 09/17/19 11:32 64 09/17/19 11:00 62 14 156/52 (86) 97 09/17/19 10:50 80 09/17/19 10:42 80 09/17/19 10:36 97.5 64 25 176/61 (99) 93 09/17/19 10:35 64 33 100 09/17/19 10:17 65 09/17/19 10:15 Mechanical Ventilator 09/17/19 09:00 Trach Collar 10.0 09/17/19 08:59 75 158/56 09/17/19 08:00 97.9 75 22 158/56 (90) 85 09/17/19 07:49 93 T-Piece 20.0 100 09/17/19 07:29 75 09/17/19 05:18 160/53 09/17/19 05:17 72 160/53 09/17/19 04:00 97.7 76 22 160/53 (88) 91 09/17/19 04:00 72 09/17/19 01:15 92 T-Piece 20.0 70 09/17/19 01:12 61 20 92 T-Piece 20.0 70 64 20 91 09/17/19 00:00 70 09/17/19 00:00 97.5 80 26 134/67 (89) 91 09/16/19 23:33 134/67 09/16/19 23:32 65 134/67 09/16/19 21:00 Trach Collar 10.0 09/16/19 20:20 89 154/74 09/16/19 20:00 98.2 90 26 154/74 (100) 90 09/16/19 20:00 72 09/16/19 19:54 92 T-Piece 12.0 40 09/16/19 19:50 86 20 95 T-Piece 12.0 40 84 20 92 09/16/19 17:42 141/63 09/16/19 17:42 78 141/63 09/16/19 16:00 98.6 84 24 141/63 (89) 92 09/16/19 16:00 68 Intake and Output 09/16/19 09/17/19 19:00 07:00 Intake Total 852.5 ml 1706.25 ml Output Total 950 ml Balance 852.5 ml 756.25 ml Intake Free Water 200 ml IV Total 402.5 ml 1011.25 ml Tube Feeding 450 ml 495 ml Output Urine Total 950 ml # Bowel Movements 5 Laboratory Tests 09/17/19 07:24: Arterial Blood pH 7.353, Arterial Blood Partial Pressure CO2 35.6, Arterial Blood Partial Pressure O2 43.5*L, Arterial Blood HCO3 19.3L, Arterial Blood Oxygen Saturation 78.2*L, Arterial Blood Base Excess -5.6L, Rojas Test Positive 09/17/19 07:30: White Blood Count 12.6H, Red Blood Count 3.15L, Hemoglobin 10.0L, Hematocrit 29.3L, Mean Corpuscular Volume 93, Mean Corpuscular Hemoglobin 31.7H, Mean Corpuscular Hemoglobin Concent 34.1, Red Cell Distribution Width 15.3H, Platelet Count 454H, Mean Platelet Volume 4.4L, Neutrophils (%) (Auto) , Lymphocytes (%) (Auto) , Monocytes (%) (Auto) , Eosinophils (%) (Auto) , Basophils (%) (Auto) , Differential Total Cells Counted 100, Neutrophils % ( Manual) 80H, Lymphocytes % (Manual) 16L, Monocytes % (Manual) 3, Eosinophils % ( Manual) 1, Basophils % (Manual) 0, Band Neutrophils 0, Platelet Estimate Adequate, Platelet Morphology Normal, Hypochromasia 1+, Anisocytosis 1+, Sodium Level 133L, Potassium Level 3.0L, Chloride Level 97L, Carbon Dioxide Level 22, Anion Gap 15, Blood Urea Nitrogen 155H, Creatinine 2.6H, Estimat Glomerular Filtration Rate 19.7, Glucose Level 93, Uric Acid 8.0H, Calcium Level 8.7, Phosphorus Level 3.4, Magnesium Level 3.7H, Total Bilirubin 0.4, Aspartate Amino Transf (AST/SGOT) 23, Alanine Aminotransferase (ALT/SGPT) 17, Alkaline Phosphatase 168H, C-Reactive Protein, Quantitative 6.1H, Pro-B-Type Natriuretic Peptide > 49888N, Total Protein 7.4, Albumin 2.5L, Globulin 4.9, Albumin/ Globulin Ratio 0.5L, Random Vancomycin Level 20.7 09/17/19 12:59: Arterial Blood pH 7.350, Arterial Blood Partial Pressure CO2 37.6, Arterial Blood Partial Pressure O2 56.4L, Arterial Blood HCO3 20.3L, Arterial Blood Oxygen Saturation 89.5*L, Arterial Blood Base Excess -4.3L, Rojas Test Positive Height (Feet): 5 Height (Inches): 5.00 Weight (Pounds): 120 Objective Physical Exam: Vitals: reviewed General: NAD HEENT: nc, at Neck: supple ++tracn/vent Chest: clear breath sounds bilaterally Cardiovascular: RRR, no s3, s4 Abdomen: soft, nontender, nd +gtube Extremities: no cce, normal range of motion Neuro: alert Evan Muhammad MD Sep 17, 2019 13:34
[2019-09-17] MEDS: Meropenem 1 GM in NS 55 ML IVPB SCH ×2 (13:56→21:44)
--- NOTE | 2019-09-17 14:01 | Surgery Progress Note ---
Surgery Progress Note Subjective Additional Comments acutely worse respiratory insufficiency on vent now in ICU responsive says okay Objective Last 24 Hour Vital Signs Date Time Temp Pulse Resp B/P (MAP) Pulse Ox O2 Delivery O2 Flow Rate FiO2 09/17/19 13:00 61 18 156/46 (82) 95 09/17/19 12:53 59 15 80 09/17/19 12:00 97.5 62 19 147/49 (81) 94 09/17/19 12:00 Mechanical Ventilator 09/17/19 11:35 63 159/55 09/17/19 11:34 159/55 09/17/19 11:32 64 09/17/19 11:00 62 14 156/52 (86) 97 09/17/19 10:50 80 09/17/19 10:42 80 09/17/19 10:36 97.5 64 25 176/61 (99) 93 09/17/19 10:35 64 33 100 09/17/19 10:17 65 09/17/19 10:15 Mechanical Ventilator 09/17/19 09:00 Trach Collar 10.0 09/17/19 08:59 75 158/56 09/17/19 08:00 97.9 75 22 158/56 (90) 85 09/17/19 07:49 93 T-Piece 20.0 100 09/17/19 07:29 75 09/17/19 05:18 160/53 09/17/19 05:17 72 160/53 09/17/19 04:00 97.7 76 22 160/53 (88) 91 09/17/19 04:00 72 09/17/19 01:15 92 T-Piece 20.0 70 09/17/19 01:12 61 20 92 T-Piece 20.0 70 64 20 91 09/17/19 00:00 70 09/17/19 00:00 97.5 80 26 134/67 (89) 91 09/16/19 23:33 134/67 09/16/19 23:32 65 134/67 09/16/19 21:00 Trach Collar 10.0 09/16/19 20:20 89 154/74 09/16/19 20:00 98.2 90 26 154/74 (100) 90 09/16/19 20:00 72 09/16/19 19:54 92 T-Piece 12.0 40 09/16/19 19:50 86 20 95 T-Piece 12.0 40 84 20 92 09/16/19 17:42 141/63 09/16/19 17:42 78 141/63 09/16/19 16:00 98.6 84 24 141/63 (89) 92 09/16/19 16:00 68 I&O Intake and Output 09/16/19 09/17/19 19:00 07:00 Intake Total 852.5 ml 1706.25 ml Output Total 950 ml Balance 852.5 ml 756.25 ml Intake Free Water 200 ml IV Total 402.5 ml 1011.25 ml Tube Feeding 450 ml 495 ml Output Urine Total 950 ml # Bowel Movements 5 Dressing: saturated Cardiovascular: RSR Respiratory: decreased breath sounds Abdomen: soft, non-tender, present bowel sounds Extremities: no cyanosis, other Laboratory Tests Test 09/17/19 07:24 09/17/19 07:30 09/17/19 12:59 Arterial Blood pH 7.353 (7.350-7.450) 7.350 (7.350-7.450) Arterial Blood Partial Pressure CO2 35.6 mmHg (35.0-45.0) 37.6 mmHg (35.0-45.0) Arterial Blood Partial Pressure O2 43.5 mmHg (75.0-100.0) 56.4 mmHg (75.0-100.0) L Arterial Blood HCO3 19.3 mmol/L (22.0-26.0) L 20.3 mmol/L (22.0-26.0) L Arterial Blood Oxygen Saturation 78.2 % (95-100) *L 89.5 % (95-100) *L Arterial Blood Base Excess -5.6 (-2-2) L -4.3 (-2-2) L Rojas Test Positive Positive White Blood Count 12.6 K/UL (4.8-10.8) H Red Blood Count 3.15 M/UL (4.20-5.40) L Hemoglobin 10.0 G/DL (12.0-16.0) L Hematocrit 29.3 % (37.0-47.0) L Mean Corpuscular Volume 93 FL (80-99) Mean Corpuscular Hemoglobin 31.7 PG (27.0-31.0) H Mean Corpuscular Hemoglobin Concent 34.1 G/DL (32.0-36.0) Red Cell Distribution Width 15.3 % (11.6-14.8) H Platelet Count 454 K/UL (150-450) H Mean Platelet Volume 4.4 FL (6.5-10.1) L Neutrophils (%) (Auto) % (45.0-75.0) Lymphocytes (%) (Auto) % (20.0-45.0) Monocytes (%) (Auto) % (1.0-10.0) Eosinophils (%) (Auto) % (0.0-3.0) Basophils (%) (Auto) % (0.0-2.0) Differential Total Cells Counted 100 Neutrophils % (Manual) 80 % (45-75) H Lymphocytes % (Manual) 16 % (20-45) L Monocytes % (Manual) 3 % (1-10) Eosinophils % (Manual) 1 % (0-3) Basophils % (Manual) 0 % (0-2) Band Neutrophils 0 % (0-8) Platelet Estimate Adequate Platelet Morphology Normal Hypochromasia 1+ Anisocytosis 1+ Sodium Level 133 MMOL/L (136-145) L Potassium Level 3.0 MMOL/L (3.5-5.1) L Chloride Level 97 MMOL/L (98-107) L Carbon Dioxide Level 22 MMOL/L (21-32) Anion Gap 15 mmol/L (5-15) Blood Urea Nitrogen 155 mg/dL (7-18) H Creatinine 2.6 MG/DL (0.55-1.30) H Estimat Glomerular Filtration Rate 19.7 mL/min (>60) Glucose Level 93 MG/DL (74-106) Uric Acid 8.0 MG/DL (2.6-7.2) H Calcium Level 8.7 MG/DL (8.5-10.1) Phosphorus Level 3.4 MG/DL (2.5-4.9) Magnesium Level 3.7 MG/DL (1.8-2.4) H Total Bilirubin 0.4 MG/DL (0.2-1.0) Aspartate Amino Transf (AST/SGOT) 23 U/L (15-37) Alanine Aminotransferase (ALT/SGPT) 17 U/L (12-78) Alkaline Phosphatase 168 U/L (46-116) H C-Reactive Protein, Quantitative 6.1 mg/dL (0.00-0.90) H Pro-B-Type Natriuretic Peptide > 68335 pg/mL (0-125) H Total Protein 7.4 G/DL (6.4-8.2) Albumin 2.5 G/DL (3.4-5.0) L Globulin 4.9 g/dL Albumin/Globulin Ratio 0.5 (1.0-2.7) L Random Vancomycin Level 20.7 ug/mL Plan Problems: (1) Anemia (2) Proteinuria (3) UTI (urinary tract infection) (4) ARF (acute renal failure) (5) ACS (acute coronary syndrome) (6) Respiratory failure, acute and chronic (7) HCAP (healthcare-associated pneumonia) (8) Abrasion of lip, initial encounter (9) COPD with exacerbation (10) Hypokalemia (11) Sepsis Assessment & Plan: Leukocytosis, anemia, abnormal labs. Renal insufficiency potentially dehydrated Abnormal LFTs alk phos elevated Urine noted significant bacteria likely UTI etiology Wound stable still requiring local care IV antibiotics per infectious disease Discussed with refuge worker Dr. Berkowitz air mattress turn q2h nutritional tf will follow with recs thank you (12) Chronic respiratory failure (13) Ascites (14) Bacteremia (15) Hypernatremia (16) Pleural effusion (17) Pacemaker (18) Aortic dissection, thoracic (19) Tracheostomy in place Assessment & Plan: trach stable no bleeding currently likely tongue etiology of mild oozing currently hemostatic without trauma (20) Feeding by G-tube Assessment & Plan: okay to resume tube feeds via g tube patent and functional dressings okay DAILY ESTIMATED NEEDS: Needs based on Pulmonary, wound 49kg 30-35 kcals/kg 4900-2122 total kcals 1.25-2 g protein/kg 61-98 g total protein Fluid per MD NUTRITION DIAGNOSIS: * Swallowing difficulty R/T dysphagia, respiratory status as evidenced by vent dep via T-collar, GT Dep. (CURRENT TF: Nepro @45ml/hr x 24 hrs) ENTERAL NUTRITION RECOMMENDATIONS: Nepro @ 40ml/hr x 24 hrs to provide 960ml, 1728kcal, 78g prot, 698ml free water * Rec LOWER current rate to 40ml/hr for 24 hrs run. 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
--- NOTE | 2019-09-17 14:02 | Nephrology Progress Note ---
Assessment/Plan Problem List: (1) JAVIER (acute kidney injury) (2) Renal failure (ARF), acute on chronic (3) Dehydration (4) Electrolyte imbalance (5) Anemia (6) Respiratory failure, acute and chronic (7) COPD with exacerbation Assessment Patient is presented with sepsis and pneumonia and UTI Patient has acute renal failure, possible underlying chronic kidney failure Severe anemia Electrolyte imbalances: Hyponatremia, hypo-kalemia Chronic respiratory failure, COPD exacerbation Plan Suggestions: Potassium supplement IV Increase IV fluids Epogen subcu Adjust blood pressure medication IV fluid, rate adjusted Norman catheter, intake and output Monitor renal parameters Avoid nephrotoxic's Antibiotics Per orders 2D echocardiogram Kidney ultrasound Subjective ROS Limited/Unobtainable: Yes Constitutional: Reports: malaise, weakness Objective Objective Last 24 Hour Vital Signs Date Time Temp Pulse Resp B/P (MAP) Pulse Ox O2 Delivery O2 Flow Rate FiO2 09/17/19 13:00 61 18 156/46 (82) 95 09/17/19 12:53 59 15 80 09/17/19 12:00 97.5 62 19 147/49 (81) 94 09/17/19 12:00 Mechanical Ventilator 09/17/19 11:35 63 159/55 09/17/19 11:34 159/55 09/17/19 11:32 64 09/17/19 11:00 62 14 156/52 (86) 97 09/17/19 10:50 80 09/17/19 10:42 80 09/17/19 10:36 97.5 64 25 176/61 (99) 93 09/17/19 10:35 64 33 100 09/17/19 10:17 65 09/17/19 10:15 Mechanical Ventilator 09/17/19 09:00 Trach Collar 10.0 09/17/19 08:59 75 158/56 09/17/19 08:00 97.9 75 22 158/56 (90) 85 09/17/19 07:49 93 T-Piece 20.0 100 09/17/19 07:29 75 09/17/19 05:18 160/53 09/17/19 05:17 72 160/53 09/17/19 04:00 97.7 76 22 160/53 (88) 91 09/17/19 04:00 72 09/17/19 01:15 92 T-Piece 20.0 70 09/17/19 01:12 61 20 92 T-Piece 20.0 70 64 20 91 09/17/19 00:00 70 09/17/19 00:00 97.5 80 26 134/67 (89) 91 09/16/19 23:33 134/67 09/16/19 23:32 65 134/67 09/16/19 21:00 Trach Collar 10.0 09/16/19 20:20 89 154/74 09/16/19 20:00 98.2 90 26 154/74 (100) 90 09/16/19 20:00 72 09/16/19 19:54 92 T-Piece 12.0 40 09/16/19 19:50 86 20 95 T-Piece 12.0 40 84 20 92 09/16/19 17:42 141/63 09/16/19 17:42 78 141/63 09/16/19 16:00 98.6 84 24 141/63 (89) 92 09/16/19 16:00 68 Intake and Output 09/16/19 09/17/19 19:00 07:00 Intake Total 852.5 ml 1706.25 ml Output Total 950 ml Balance 852.5 ml 756.25 ml Intake Free Water 200 ml IV Total 402.5 ml 1011.25 ml Tube Feeding 450 ml 495 ml Output Urine Total 950 ml # Bowel Movements 5 Laboratory Tests 09/17/19 07:24: Arterial Blood pH 7.353, Arterial Blood Partial Pressure CO2 35.6, Arterial Blood Partial Pressure O2 43.5*L, Arterial Blood HCO3 19.3L, Arterial Blood Oxygen Saturation 78.2*L, Arterial Blood Base Excess -5.6L, Rojas Test Positive 09/17/19 07:30: White Blood Count 12.6H, Red Blood Count 3.15L, Hemoglobin 10.0L, Hematocrit 29.3L, Mean Corpuscular Volume 93, Mean Corpuscular Hemoglobin 31.7H, Mean Corpuscular Hemoglobin Concent 34.1, Red Cell Distribution Width 15.3H, Platelet Count 454H, Mean Platelet Volume 4.4L, Neutrophils (%) (Auto) , Lymphocytes (%) (Auto) , Monocytes (%) (Auto) , Eosinophils (%) (Auto) , Basophils (%) (Auto) , Differential Total Cells Counted 100, Neutrophils % ( Manual) 80H, Lymphocytes % (Manual) 16L, Monocytes % (Manual) 3, Eosinophils % ( Manual) 1, Basophils % (Manual) 0, Band Neutrophils 0, Platelet Estimate Adequate, Platelet Morphology Normal, Hypochromasia 1+, Anisocytosis 1+, Sodium Level 133L, Potassium Level 3.0L, Chloride Level 97L, Carbon Dioxide Level 22, Anion Gap 15, Blood Urea Nitrogen 155H, Creatinine 2.6H, Estimat Glomerular Filtration Rate 19.7, Glucose Level 93, Uric Acid 8.0H, Calcium Level 8.7, Phosphorus Level 3.4, Magnesium Level 3.7H, Total Bilirubin 0.4, Aspartate Amino Transf (AST/SGOT) 23, Alanine Aminotransferase (ALT/SGPT) 17, Alkaline Phosphatase 168H, C-Reactive Protein, Quantitative 6.1H, Pro-B-Type Natriuretic Peptide > 12131K, Total Protein 7.4, Albumin 2.5L, Globulin 4.9, Albumin/ Globulin Ratio 0.5L, Random Vancomycin Level 20.7 09/17/19 12:59: Arterial Blood pH 7.350, Arterial Blood Partial Pressure CO2 37.6, Arterial Blood Partial Pressure O2 56.4L, Arterial Blood HCO3 20.3L, Arterial Blood Oxygen Saturation 89.5*L, Arterial Blood Base Excess -4.3L, Rojas Test Positive Height (Feet): 5 Height (Inches): 5.00 Weight (Pounds): 120 General Appearance: mild distress EENT: other - Trach to vent Cardiovascular: tachycardia Respiratory/Chest: decreased breath sounds Abdomen: distended Johnny Houston MD Sep 17, 2019 14:02
--- NOTE | 2019-09-17 14:08 | Diagnostic Imaging Report ---
EXAM: ULTRASOUND Venous Duplex Scan John Leg CLINICAL HISTORY: Leg pain and edema. COMPARISON: None TECHNIQUE: Doppler examination include grayscale images obtained with and without compression, and color and spectral doppler analysis. FINDINGS: Doppler examination shows normal spontaneity, phasicity, compressibility in the bilateral lower extremities. There is no thrombus identified by grayscale. Normal color and spectral flow is identified. There is no evidence of valvular incompetency or insufficiency. IMPRESSION: UNREMARKABLE VENOUS DUPLEX.
[2019-09-17] MEDS ORDERED: D5NS 1000ml IV ONE (15:41)
[2019-09-17] MEDS: LORazepam Inj 2mg/ml 1ml IV PRN (20:01)
[2019-09-17] MEDS ORDERED: Vancomycin 500 MG in D5W 110 ML IVPB ONE (21:00)
[2019-09-17] MEDS ORDERED: Vancomycin 500mg/D5W 110ml IVPB ONE ×2 (21:00)
[2019-09-17] MEDS: Sertraline 100mg tab GT SCH (21:46)
[2019-09-18] VITALS (28 sets, daily range): BP systolic 106–192; BP diastolic 52–157
[2019-09-18] MEDS: Albuterol/Ipratropium 3ml neb HHN SCH ×4 (01:46→20:01)
[2019-09-18] MEDS: LORazepam Inj 2mg/ml 1ml IV PRN ×2 (01:51→06:14)
[2019-09-18] MEDS ORDERED: Cefepime HCl 1 GM in D5W 55 ML IVPB SCH (03:00)
[2019-09-18] MEDS ORDERED: Cefepime 1gm/D5W 55ml IVPB SCH ×2 (03:00)
[2019-09-18] MEDS: oxyCODONE 5mg IR tab GT PRN ×3 (03:56→22:14)
[2019-09-18 04:49] LABS: BASOPHILS % (AUTO) 0.7 % (0.0-2.0); EOSINOPHILS % (AUTO) 3.3 % (0.0-3.0); HEMATOCRIT 26.1 % (37.0-47.0); HEMOGLOBIN 8.8 G/DL (12.0-16.0); LYMPHOCYTES % (AUTO) 11.8 % (20.0-45.0); MEAN CORPUSCULAR VOLUME 94 FL (80-99); MONOCYTES % (AUTO) 6.7 % (1.0-10.0); NEUTROPHILS % (AUTO) 77.6 % (45.0-75.0); PLATELET COUNT 419 K/UL (150-450); RED BLOOD COUNT 2.77 M/UL (4.20-5.40); WHITE BLOOD COUNT 13.5 K/UL (4.8-10.8)
[2019-09-18 05:17] LABS: ALANINE AMINOTRANSFERASE 14 U/L (12-78); ALBUMIN 2.4 G/DL (3.4-5.0); ALBUMIN/GLOBULIN RATIO 0.5 (1.0-2.7); ALKALINE PHOSPHATASE 164 U/L (46-116); ANION GAP 16 mmol/L (5-15); ASPARTATE AMINO TRANSFERASE 21 U/L (15-37); BILIRUBIN,TOTAL 0.3 MG/DL (0.2-1.0); BLOOD UREA NITROGEN 152 mg/dL (7-18); CALCIUM 8.6 MG/DL (8.5-10.1); CARBON DIOXIDE 20 MMOL/L (21-32); CHLORIDE 101 MMOL/L (98-107); CREATINE KINASE 43 U/L (26-308); CREATININE 2.4 MG/DL (0.55-1.30); PHOSPHORUS 3.1 MG/DL (2.5-4.9); POTASSIUM 2.8 MMOL/L (3.5-5.1); SODIUM 137 MMOL/L (136-145)
[2019-09-18] MEDS: dilTIAZem HCl 60mg tab GT SCH ×3 (06:00→17:49)
[2019-09-18] MEDS: HydrALAZINE 50mg tab GT SCH ×3 (06:00→17:49)
[2019-09-18] MEDS: Heparin 5000 units/ml inj SUBQ SCH ×2 (08:13→20:43)
--- NOTE | 2019-09-18 08:26 | Hematology/Onc Progress Note ---
Assessment/Plan Assessment/Plan Covering [facility] Assessment and Recs # Leukocytosis, now with gram positive bacteremiaas well as pna noted --> historically --> PPM site (pocket) infection (redness and pain, bacteremia) and likely pocket abscess - no vegetation seen on ABBIE --> is s'p pm removal and also pocket infection is better --> per cards recs in re to tach/davis --> wbc 15-->19-->17-->15-->13->12-->13 --> ABX cefepime/levaquin--> vanc/angelo --> ID recs are noted # Anemia of chronic disease due to underlying chronic medical issues, multifactorial --> Anemia workup has been reviewed, cw acd --> No evidence of hemolysis is noted, peripheral smear has been reviewed. --> Hgb goal >7. Transfuse prn. --> Epogen started --> Medications have been reviewed --> low threshold for gi evaluation in case has occult + --> hgb 7.1-->7.8-->8.9->9.2-->8.5-->9.7-->10-->8.8 # Thrombocytois is likely reactive process, is s/p infection --> plt trend 610k-->706k --> p smear reviewed # Acute hypoxic respiratory failure s/p intubation 11/23- ?ARDS --> on vent/trach # Gram positive bacteremia- real bacteremia- 2ry to above and probable PNA --> per id care # JAVIER initially >2 --> now improved with D5w # Dysphagia s/p peg # Thoracic aortic dissection s/p repair early 2017 # [place] resident # Dvt ppx heparin sq The timing of this note does not necessarily reflect the time of the patient was seen. Greatly appreciate consultation. Subjective HEENT: Denies: no symptoms, eye pain, blurred vision, tearing, double vision, ear pain, ear discharge, nose pain, nose congestion, throat pain, throat swelling, mouth pain, mouth swelling, other Cardiovascular: Denies: no symptoms, chest pain, edema, irregular heart rate, lightheadedness, palpitations, syncope, other Respiratory: Denies: no symptoms, cough, shortness of breath, SOB with excertion, SOB at rest, sputum, wheezing, other Genitourinary: Denies: no symptoms, burning, discharge, frequency, flank pain, hematuria, incontinence, pain, urgency, other Neurologic/Psychiatric: Denies: no symptoms, anxiety, depressed, emotional problems, headache, numbness, paresthesia, pre-existing deficit, seizure, tingling, tremors, weakness, other Endocrine: Denies: no symptoms, excessive sweating, flushing, intolerance to cold, intolerance to heat, increased hunger, increased thirst, increased urine, unexplained weight gain, unexplained weight loss, other Hematologic/Lymphatic: Denies: no symptoms, anemia, easy bleeding, easy bruising, adenopathy, other Allergies: Coded Allergies: No Known Allergies (Unverified , 10/10/17) Subjective 09/16 on vent now, consulted in am pulm, on vent setting, labs noted, hep sq 09/17 meds noted, cbc noted, labs noted, no bleeding Objective Objective Current Medications Medications (Trade) Dose Ordered Sig/Penny Route PRN Reason Start Time Stop Time Status Last Admin Dose Admin Acetaminophen/ Hydrocodone Bitart (Boyd 10/325) 1 tab Q6H PRN GT For Pain 09/17/19 13:30 09/22/19 07:29 09/17/19 17:20 Albuterol/ Ipratropium (Albuterol/ Ipratropium) 3 ml Q6HRT HHN 09/17/19 13:00 09/20/19 12:59 09/18/19 07:55 Clonazepam (KlonoPIN) 0.5 mg Q12HR GT 09/17/19 21:00 09/22/19 08:59 09/17/19 21:46 Dextrose/Sodium Chloride 1,000 ml @ 50 mls/hr Q20H IV 09/18/19 09:00 10/17/19 08:59 Diltiazem HCl (Cardizem Tab) 60 mg EVERY 6 HOURS GT 09/17/19 12:00 10/15/19 11:59 09/18/19 06:00 Docusate Sodium (Colace) 100 mg TID GT 09/17/19 13:00 10/15/19 08:59 Epoetin Gelacio (Epoetin Gelacio-EPBX(NON ESRD)) 10,000 unit MON-MON-MON SUBQ 09/18/19 21:00 12/15/19 20:59 Haloperidol Lactate 5 mg/ Dextrose 56 ml @ 224 mls/hr EVERY 12 HOURS PRN IVPB Agitation 09/18/19 07:00 11/02/19 06:59 Heparin Sodium (Porcine) (Heparin 5000 units/ml) 5,000 units EVERY 12 HOURS SUBQ 09/17/19 21:00 10/30/19 08:59 Hydralazine HCl (Apresoline) 10 mg Q4H PRN IV BP over 160 systolic 09/17/19 11:15 12/14/19 11:14 09/18/19 03:12 Hydralazine HCl (Apresoline) 50 mg Q6HR GT 09/17/19 12:00 12/15/19 17:59 09/18/19 06:00 Ipratropium [place] (Atrovent) 500 mcg Q4H PRN HHN Shortness of Breath 09/17/19 11:15 09/22/19 11:14 Lorazepam (Ativan 2mg/ml 1ml) 2 mg Q4H PRN IV For Anxiety 09/17/19 20:00 09/24/19 19:59 09/18/19 06:14 Meropenem 1 gm/ Sodium Chloride 55 ml @ 110 mls/hr Q12HR IVPB 09/17/19 13:00 09/22/19 12:59 09/17/19 21:44 Metoprolol Tartrate (Lopressor) 50 mg EVERY 12 HOURS GT 09/17/19 21:00 12/14/19 08:59 09/17/19 21:46 Olanzapine (ZyPREXA) 2.5 mg DAILY GT 09/18/19 09:00 10/30/19 08:59 Oxycodone HCl (Roxicodone) 5 mg Q4H PRN GT Severe Pain (Pain Scale 7-10) 09/17/19 11:15 09/22/19 11:14 09/18/19 03:56 Potassium Chloride 100 ml @ 100 mls/hr Q1H IVPB 09/18/19 09:00 09/18/19 12:59 Sertraline HCl (Zoloft) 100 mg BEDTIME GT 09/17/19 21:00 10/15/19 20:59 09/17/19 21:46 Vancomycin HCl (Vanco pharmacy to dose) 1 ea DAILY PRN MISC Per rx protocol 09/18/19 09:00 10/16/19 13:44 Last 24 Hour Vital Signs Date Time Temp Pulse Resp B/P (MAP) Pulse Ox O2 Delivery O2 Flow Rate FiO2 09/18/19 08:00 74 33 161/52 (88) 94 09/18/19 08:00 Mechanical Ventilator 09/18/19 08:00 80 09/18/19 08:00 98.4 73 22 161/61 (94) 97 09/18/19 07:56 74 33 100 Mechanical Ventilator 80 74 34 80 09/18/19 07:00 74 33 161/52 (88) 94 09/18/19 06:00 82 34 192/63 (106) 96 09/18/19 06:00 175/58 09/18/19 06:00 88 175/58 09/18/19 05:00 78 35 175/58 (97) 94 09/18/19 04:43 75 34 168/52 (90) 94 09/18/19 04:24 77 35 80 09/18/19 04:03 85 09/18/19 04:00 98.0 76 34 185/152 (163) 95 09/18/19 04:00 Mechanical Ventilator 09/18/19 03:28 73 34 80 09/18/19 03:12 180/157 09/18/19 03:00 78 20 180/157 (165) 100 09/18/19 02:00 70 29 176/56 (96) 100 09/18/19 01:30 70 34 100 Mechanical Ventilator 80 79 43 80 09/18/19 01:00 68 34 159/53 (88) 99 09/18/19 00:00 80 09/18/19 00:00 Mechanical Ventilator 09/18/19 00:00 98.3 69 33 158/57 (90) 100 09/17/19 23:33 74 09/17/19 23:30 72 38 80 09/17/19 23:19 186/57 09/17/19 23:19 67 186/67 09/17/19 23:00 66 33 186/57 (100) 100 09/17/19 22:00 83 34 183/55 (97) 100 09/17/19 21:46 76 162/52 09/17/19 21:03 74 31 80 09/17/19 21:00 73 29 162/52 (88) 96 09/17/19 20:35 73 09/17/19 20:13 73 30 80 09/17/19 20:00 Mechanical Ventilator 09/17/19 20:00 80 09/17/19 20:00 Mechanical Ventilator 09/17/19 20:00 98.6 79 31 161/59 (93) 100 09/17/19 20:00 72 29 100 Mechanical Ventilator 80 68 27 100 09/17/19 19:00 78 25 167/50 (89) 98 09/17/19 18:00 73 29 157/51 (86) 100 09/17/19 17:20 177/67 09/17/19 17:20 73 177/67 09/17/19 17:15 71 20 80 09/17/19 17:00 70 16 177/67 (103) 100 09/17/19 16:00 98.3 73 20 159/50 (86) 100 09/17/19 16:00 Mechanical Ventilator 09/17/19 16:00 70 09/17/19 15:21 172/55 09/17/19 15:09 71 24 100 Mechanical Ventilator 80 68 13 80 09/17/19 15:08 100 Mechanical Ventilator 80 09/17/19 15:00 64 16 168/57 (94) 100 09/17/19 14:00 62 19 161/55 (90) 98 09/17/19 13:00 61 18 156/46 (82) 95 09/17/19 12:53 59 15 80 09/17/19 12:00 97.5 62 19 147/49 (81) 94 09/17/19 12:00 Mechanical Ventilator 09/17/19 11:35 63 159/55 09/17/19 11:34 159/55 09/17/19 11:32 64 09/17/19 11:00 62 14 156/52 (86) 97 09/17/19 10:50 80 09/17/19 10:42 80 09/17/19 10:36 97.5 64 25 176/61 (99) 93 09/17/19 10:35 64 33 100 09/17/19 10:17 65 09/17/19 10:15 Mechanical Ventilator 09/17/19 09:00 Trach Collar 10.0 09/17/19 08:59 75 158/56 8/4/20 08:00 97.9 75 22 158/56 (90) 85 09/17/19 07:49 93 T-Piece 20.0 100 09/17/19 07:29 75 09/17/19 05:18 160/53 09/17/19 05:17 72 160/53 09/17/19 04:00 97.7 76 22 160/53 (88) 91 09/17/19 04:00 72 09/17/19 01:15 92 T-Piece 20.0 70 09/17/19 01:12 61 20 92 T-Piece 20.0 70 64 20 91 09/17/19 00:00 70 09/17/19 00:00 97.5 80 26 134/67 (89) 91 09/16/19 23:33 134/67 09/16/19 23:32 65 134/67 09/16/19 21:00 Trach Collar 10.0 09/16/19 20:20 89 154/74 09/16/19 20:00 98.2 90 26 154/74 (100) 90 09/16/19 20:00 72 09/16/19 19:54 92 T-Piece 12.0 40 09/16/19 19:50 86 20 95 T-Piece 12.0 40 84 20 92 09/16/19 17:42 141/63 09/16/19 17:42 78 141/63 09/16/19 16:00 98.6 84 24 141/63 (89) 92 09/16/19 16:00 68 09/16/19 12:47 73 20 92 T-Piece 12.0 40 73 20 89 09/16/19 12:47 92 12.0 40 09/16/19 12:24 70 142/54 09/16/19 12:00 97.7 70 24 142/54 (83) 94 09/16/19 12:00 66 09/16/19 09:17 71 165/66 09/16/19 09:00 Trach Collar 10.0 Intake and Output 09/17/19 09/18/19 19:00 07:00 Intake Total 1163.33 ml 1315 ml Output Total 500 ml 700 ml Balance 663.33 ml 615 ml Intake Free Water 100 ml IV Total 658.33 ml 1135 ml Tube Feeding 405 ml 180 ml Output Urine Total 500 ml 700 ml # Bowel Movements 3 Labs Test 09/15/19 08:45 09/15/19 13:40 09/16/19 04:00 09/16/19 05:30 White Blood Count 11.1 K/UL (4.8-10.8) 12.8 K/UL (4.8-10.8) Red Blood Count 2.48 M/UL (4.20-5.40) 3.03 M/UL (4.20-5.40) Hemoglobin 7.9 G/DL (12.0-16.0) 9.6 G/DL (12.0-16.0) Hematocrit 23.0 % (37.0-47.0) 28.1 % (37.0-47.0) Mean Corpuscular Volume 93 FL (80-99) 93 FL (80-99) Mean Corpuscular Hemoglobin 32.0 PG (27.0-31.0) 31.7 PG (27.0-31.0) Mean Corpuscular Hemoglobin Concent 34.4 G/DL (32.0-36.0) 34.2 G/DL (32.0-36.0) Red Cell Distribution Width 14.6 % (11.6-14.8) 14.8 % (11.6-14.8) Platelet Count 538 K/UL (150-450) 491 K/UL (150-450) Mean Platelet Volume 4.4 FL (6.5-10.1) 4.6 FL (6.5-10.1) Neutrophils (%) (Auto) % (45.0-75.0) 78.3 % (45.0-75.0) Lymphocytes (%) (Auto) % (20.0-45.0) 13.5 % (20.0-45.0) Monocytes (%) (Auto) % (1.0-10.0) 7.8 % (1.0-10.0) Eosinophils (%) (Auto) % (0.0-3.0) 0.1 % (0.0-3.0) Basophils (%) (Auto) % (0.0-2.0) 0.3 % (0.0-2.0) Differential Total Cells Counted 100 Neutrophils % (Manual) 93 % (45-75) Lymphocytes % (Manual) 5 % (20-45) Monocytes % (Manual) 2 % (1-10) Eosinophils % (Manual) 0 % (0-3) Basophils % (Manual) 0 % (0-2) Band Neutrophils 0 % (0-8) Platelet Estimate Adequate Platelet Morphology Normal Hypochromasia 3+ Spherocytes 2+ Sodium Level 125 MMOL/L (136-145) 129 MMOL/L (136-145) Potassium Level 3.1 MMOL/L (3.5-5.1) 2.9 MMOL/L (3.5-5.1) Chloride Level 85 MMOL/L (98-107) 90 MMOL/L (98-107) Carbon Dioxide Level 23 MMOL/L (21-32) 22 MMOL/L (21-32) Anion Gap 17 mmol/L (5-15) 17 mmol/L (5-15) Blood Urea Nitrogen 183 mg/dL (7-18) 172 mg/dL (7-18) Creatinine 2.8 MG/DL (0.55-1.30) 2.6 MG/DL (0.55-1.30) Estimat Glomerular Filtration Rate 18.2 mL/min (>60) 19.8 mL/min (>60) Glucose Level 133 MG/DL (74-106) 94 MG/DL (74-106) Calcium Level 9.7 MG/DL (8.5-10.1) 9.2 MG/DL (8.5-10.1) Phosphorus Level 3.7 MG/DL (2.5-4.9) 3.6 MG/DL (2.5-4.9) Magnesium Level 4.1 MG/DL (1.8-2.4) 3.9 MG/DL (1.8-2.4) Iron Level 34 ug/dL (50-175) Total Iron Binding Capacity 261 ug/dL (250-450) Percent Iron Saturation 13 % (15-50) Unsaturated Iron Binding 227 ug/dL (112-346) Ferritin 1228 NG/ML (8-388) Aspartate Amino Transf (AST/SGOT) 24 U/L (15-37) 23 U/L (15-37) Alanine Aminotransferase (ALT/SGPT) 17 U/L (12-78) 16 U/L (12-78) Triglycerides Level 147 MG/DL (30-150) Cholesterol Level 121 MG/DL (< 200) LDL Cholesterol 69 mg/dL (<100) HDL Cholesterol 29 MG/DL (40-60) Cholesterol/HDL Ratio 4.2 (3.3-4.4) Vitamin B12 Level 1758 PG/ML (193-986) Folate 43.0 NG/ML (8.6-58.9) Urine Color Pale yellow Urine Appearance Slightly cloudy Urine pH 6 (4.5-8.0) Urine Specific [place] 1.005 (1.005-1.035) Urine Protein 3+ (NEGATIVE) Urine Glucose (UA) Negative (NEGATIVE) Urine Ketones Negative (NEGATIVE) Urine Blood 5+ (NEGATIVE) Urine Nitrite Negative (NEGATIVE) Urine Bilirubin Negative (NEGATIVE) Urine Urobilinogen Normal MG/DL (0.0-1.0) Urine Leukocyte Esterase 3+ (NEGATIVE) Urine RBC Tntc /HPF (0 - 2) Urine WBC 5-10 /HPF (0 - 2) Urine Squamous Epithelial Cells Occasional /LPF Urine Bacteria Few /HPF (NONE) Urine Random Sodium 29 mmol/L (20-110) Uric Acid 8.7 MG/DL (2.6-7.2) Total Bilirubin 0.3 MG/DL (0.2-1.0) Alkaline Phosphatase 183 U/L (46-116) C-Reactive Protein, Quantitative 4.3 mg/dL (0.00-0.90) Pro-B-Type Natriuretic Peptide > 48016 pg/mL (0-125) Total Protein 7.6 G/DL (6.4-8.2) Albumin 2.7 G/DL (3.4-5.0) Globulin 4.9 g/dL Albumin/Globulin Ratio 0.6 (1.0-2.7) Test 09/16/19 07:04 09/17/19 07:24 09/17/19 07:30 09/17/19 12:59 Arterial Blood pH 7.411 (7.350-7.450) 7.353 (7.350-7.450) 7.350 (7.350-7.450) Arterial Blood Partial Pressure CO2 28.6 mmHg (35.0-45.0) 35.6 mmHg (35.0-45.0) 37.6 mmHg (35.0-45.0) Arterial Blood Partial Pressure O2 46.9 mmHg (75.0-100.0) 43.5 mmHg (75.0-100.0) 56.4 mmHg (75.0-100.0) Arterial Blood HCO3 17.8 mmol/L (22.0-26.0) 19.3 mmol/L (22.0-26.0) 20.3 mmol/L (22.0-26.0) Arterial Blood Oxygen Saturation 88.6 % (95-100) 78.2 % (95-100) 89.5 % (95-100) Arterial Blood Base Excess -5.9 (-2-2) -5.6 (-2-2) -4.3 (-2-2) Rojas Test Positive Positive Positive White Blood Count 12.6 K/UL (4.8-10.8) Red Blood Count 3.15 M/UL (4.20-5.40) Hemoglobin 10.0 G/DL (12.0-16.0) Hematocrit 29.3 % (37.0-47.0) Mean Corpuscular Volume 93 FL (80-99) Mean Corpuscular Hemoglobin 31.7 PG (27.0-31.0) Mean Corpuscular Hemoglobin Concent 34.1 G/DL (32.0-36.0) Red Cell Distribution Width 15.3 % (11.6-14.8) Platelet Count 454 K/UL (150-450) Mean Platelet Volume 4.4 FL (6.5-10.1) Neutrophils (%) (Auto) % (45.0-75.0) Lymphocytes (%) (Auto) % (20.0-45.0) Monocytes (%) (Auto) % (1.0-10.0) Eosinophils (%) (Auto) % (0.0-3.0) Basophils (%) (Auto) % (0.0-2.0) Differential Total Cells Counted 100 Neutrophils % (Manual) 80 % (45-75) Lymphocytes % (Manual) 16 % (20-45) Monocytes % (Manual) 3 % (1-10) Eosinophils % (Manual) 1 % (0-3) Basophils % (Manual) 0 % (0-2) Band Neutrophils 0 % (0-8) Platelet Estimate Adequate Platelet Morphology Normal Hypochromasia 1+ Anisocytosis 1+ Sodium Level 133 MMOL/L (136-145) Potassium Level 3.0 MMOL/L (3.5-5.1) Chloride Level 97 MMOL/L (98-107) Carbon Dioxide Level 22 MMOL/L (21-32) Anion Gap 15 mmol/L (5-15) Blood Urea Nitrogen 155 mg/dL (7-18) Creatinine 2.6 MG/DL (0.55-1.30) Estimat Glomerular Filtration Rate 19.7 mL/min (>60) Glucose Level 93 MG/DL (74-106) Uric Acid 8.0 MG/DL (2.6-7.2) Calcium Level 8.7 MG/DL (8.5-10.1) Phosphorus Level 3.4 MG/DL (2.5-4.9) Magnesium Level 3.7 MG/DL (1.8-2.4) Total Bilirubin 0.4 MG/DL (0.2-1.0) Aspartate Amino Transf (AST/SGOT) 23 U/L (15-37) Alanine Aminotransferase (ALT/SGPT) 17 U/L (12-78) Alkaline Phosphatase 168 U/L (46-116) C-Reactive Protein, Quantitative 6.1 mg/dL (0.00-0.90) Pro-B-Type Natriuretic Peptide > 81561 pg/mL (0-125) Total Protein 7.4 G/DL (6.4-8.2) Albumin 2.5 G/DL (3.4-5.0) Globulin 4.9 g/dL Albumin/Globulin Ratio 0.5 (1.0-2.7) Random Vancomycin Level 20.7 ug/mL Test 09/17/19 14:23 09/18/19 03:00 White Blood Count 13.5 K/UL (4.8-10.8) Red Blood Count 2.77 M/UL (4.20-5.40) Hemoglobin 8.8 G/DL (12.0-16.0) Hematocrit 26.1 % (37.0-47.0) Mean Corpuscular Volume 94 FL (80-99) Mean Corpuscular Hemoglobin 31.8 PG (27.0-31.0) Mean Corpuscular Hemoglobin Concent 33.6 G/DL (32.0-36.0) Red Cell Distribution Width 15.0 % (11.6-14.8) Platelet Count 419 K/UL (150-450) Mean Platelet Volume 4.5 FL (6.5-10.1) Neutrophils (%) (Auto) 77.6 % (45.0-75.0) Lymphocytes (%) (Auto) 11.8 % (20.0-45.0) Monocytes (%) (Auto) 6.7 % (1.0-10.0) Eosinophils (%) (Auto) 3.3 % (0.0-3.0) Basophils (%) (Auto) 0.7 % (0.0-2.0) D-Dimer 2.86 mg/L FEU (0.00-0.49) Sodium Level 137 MMOL/L (136-145) Potassium Level 2.8 MMOL/L (3.5-5.1) Chloride Level 101 MMOL/L (98-107) Carbon Dioxide Level 20 MMOL/L (21-32) Anion Gap 16 mmol/L (5-15) Blood Urea Nitrogen 152 mg/dL (7-18) Creatinine 2.4 MG/DL (0.55-1.30) Estimat Glomerular Filtration Rate 21.7 mL/min (>60) Glucose Level 88 MG/DL (74-106) Uric Acid 8.2 MG/DL (2.6-7.2) Calcium Level 8.6 MG/DL (8.5-10.1) Phosphorus Level 3.1 MG/DL (2.5-4.9) Magnesium Level 3.7 MG/DL (1.8-2.4) Total Bilirubin 0.3 MG/DL (0.2-1.0) Aspartate Amino Transf (AST/SGOT) 21 U/L (15-37) Alanine Aminotransferase (ALT/SGPT) 14 U/L (12-78) Alkaline Phosphatase 164 U/L (46-116) Total Creatine Kinase 43 U/L (26-308) C-Reactive Protein, Quantitative 8.1 mg/dL (0.00-0.90) Total Protein 7.4 G/DL (6.4-8.2) Albumin 2.4 G/DL (3.4-5.0) Globulin 5.0 g/dL Albumin/Globulin Ratio 0.5 (1.0-2.7) Height (Feet): 5 Height (Inches): 5.00 Weight (Pounds): 118 Objective Physical Exam: Vitals: reviewed General: NAD HEENT: nc, at Neck: supple ++tracn/vent Chest: clear breath sounds bilaterally Cardiovascular: RRR, no s3, s4 Abdomen: soft, nontender, nd +gtube Extremities: no cce, normal range of motion Neuro: alert Evan Muhammad MD Sep 18, 2019 08:26
[2019-09-18] MEDS: Metoprolol Tartrate 50mg tab GT SCH ×2 (08:36→20:42)
[2019-09-18] MEDS: OLANZapine 2.5mg tab GT SCH (08:36)
[2019-09-18] MEDS: Meropenem 1 GM in NS 55 ML IVPB SCH ×2 (08:37→20:41)
[2019-09-18] MEDS: D5NS 1,000 ML IV SCH (08:37)
[2019-09-18] MEDS: clonazePAM 0.5mg tab GT SCH ×2 (08:37→20:41)
[2019-09-18] MEDS: Docusate 100mg/10ml Liq GT SCH ×3 (09:00→17:49)
--- NOTE | 2019-09-18 09:38 | Surgery Progress Note ---
Surgery Progress Note Subjective Additional Comments leukocytosis anemia venous duplex noted no complaints secretions Objective Last 24 Hour Vital Signs Date Time Temp Pulse Resp B/P (MAP) Pulse Ox O2 Delivery O2 Flow Rate FiO2 09/18/19 09:00 69 20 145/66 (92) 99 09/18/19 08:36 74 161/52 09/18/19 08:00 74 33 161/52 (88) 94 09/18/19 08:00 Mechanical Ventilator 09/18/19 08:00 80 09/18/19 08:00 98.4 73 22 161/61 (94) 97 09/18/19 07:56 74 33 100 Mechanical Ventilator 80 74 34 80 09/18/19 07:43 75 09/18/19 07:00 74 33 161/52 (88) 94 09/18/19 06:00 82 34 192/63 (106) 96 09/18/19 06:00 175/58 09/18/19 06:00 88 175/58 09/18/19 05:00 78 35 175/58 (97) 94 09/18/19 04:43 75 34 168/52 (90) 94 09/18/19 04:24 77 35 80 09/18/19 04:03 85 09/18/19 04:00 98.0 76 34 185/152 (163) 95 09/18/19 04:00 Mechanical Ventilator 09/18/19 03:28 73 34 80 09/18/19 03:12 180/157 09/18/19 03:00 78 20 180/157 (165) 100 09/18/19 02:00 70 29 176/56 (96) 100 09/18/19 01:30 70 34 100 Mechanical Ventilator 80 79 43 80 09/18/19 01:00 68 34 159/53 (88) 99 09/18/19 00:00 80 09/18/19 00:00 Mechanical Ventilator 09/18/19 00:00 98.3 69 33 158/57 (90) 100 09/17/19 23:33 74 09/17/19 23:30 72 38 80 09/17/19 23:19 186/57 09/17/19 23:19 67 186/67 09/17/19 23:00 66 33 186/57 (100) 100 09/17/19 22:00 83 34 183/55 (97) 100 09/17/19 21:46 76 162/52 09/17/19 21:03 74 31 80 09/17/19 21:00 73 29 162/52 (88) 96 09/17/19 20:35 73 09/17/19 20:13 73 30 80 09/17/19 20:00 Mechanical Ventilator 09/17/19 20:00 80 09/17/19 20:00 Mechanical Ventilator 09/17/19 20:00 98.6 79 31 161/59 (93) 100 09/17/19 20:00 72 29 100 Mechanical Ventilator 80 68 27 100 09/17/19 19:00 78 25 167/50 (89) 98 09/17/19 18:00 73 29 157/51 (86) 100 09/17/19 17:20 177/67 09/17/19 17:20 73 177/67 09/17/19 17:15 71 20 80 09/17/19 17:00 70 16 177/67 (103) 100 09/17/19 16:00 98.3 73 20 159/50 (86) 100 09/17/19 16:00 Mechanical Ventilator 09/17/19 16:00 70 09/17/19 15:21 172/55 09/17/19 15:09 71 24 100 Mechanical Ventilator 80 68 13 80 09/17/19 15:08 100 Mechanical Ventilator 80 09/17/19 15:00 64 16 168/57 (94) 100 09/17/19 14:00 62 19 161/55 (90) 98 09/17/19 13:00 61 18 156/46 (82) 95 09/17/19 12:53 59 15 80 09/17/19 12:00 97.5 62 19 147/49 (81) 94 09/17/19 12:00 Mechanical Ventilator 09/17/19 11:35 63 159/55 09/17/19 11:34 159/55 09/17/19 11:32 64 09/17/19 11:00 62 14 156/52 (86) 97 09/17/19 10:50 80 09/17/19 10:42 80 09/17/19 10:36 97.5 64 25 176/61 (99) 93 09/17/19 10:35 64 33 100 09/17/19 10:17 65 09/17/19 10:15 Mechanical Ventilator I&O Intake and Output 09/17/19 09/18/19 19:00 07:00 Intake Total 1163.33 ml 1315 ml Output Total 500 ml 700 ml Balance 663.33 ml 615 ml Intake Free Water 100 ml IV Total 658.33 ml 1135 ml Tube Feeding 405 ml 180 ml Output Urine Total 500 ml 700 ml # Bowel Movements 3 Dressing: saturated Cardiovascular: RSR Respiratory: decreased breath sounds Abdomen: soft, non-tender, present bowel sounds Extremities: no tenderness, no cyanosis, other Laboratory Tests Test 09/17/19 12:59 09/17/19 14:23 09/18/19 03:00 Arterial Blood pH 7.350 (7.350-7.450) Arterial Blood Partial Pressure CO2 37.6 mmHg (35.0-45.0) Arterial Blood Partial Pressure O2 56.4 mmHg (75.0-100.0) L Arterial Blood HCO3 20.3 mmol/L (22.0-26.0) L Arterial Blood Oxygen Saturation 89.5 % (95-100) *L Arterial Blood Base Excess -4.3 (-2-2) L Rojas Test Positive Urine Legionella Antigen Pending White Blood Count 13.5 K/UL (4.8-10.8) H Red Blood Count 2.77 M/UL (4.20-5.40) L Hemoglobin 8.8 G/DL (12.0-16.0) L Hematocrit 26.1 % (37.0-47.0) L Mean Corpuscular Volume 94 FL (80-99) Mean Corpuscular Hemoglobin 31.8 PG (27.0-31.0) H Mean Corpuscular Hemoglobin Concent 33.6 G/DL (32.0-36.0) Red Cell Distribution Width 15.0 % (11.6-14.8) H Platelet Count 419 K/UL (150-450) Mean Platelet Volume 4.5 FL (6.5-10.1) L Neutrophils (%) (Auto) 77.6 % (45.0-75.0) H Lymphocytes (%) (Auto) 11.8 % (20.0-45.0) L Monocytes (%) (Auto) 6.7 % (1.0-10.0) Eosinophils (%) (Auto) 3.3 % (0.0-3.0) H Basophils (%) (Auto) 0.7 % (0.0-2.0) D-Dimer 2.86 mg/L FEU (0.00-0.49) H Sodium Level 137 MMOL/L (136-145) Potassium Level 2.8 MMOL/L (3.5-5.1) L Chloride Level 101 MMOL/L (98-107) Carbon Dioxide Level 20 MMOL/L (21-32) L Anion Gap 16 mmol/L (5-15) H Blood Urea Nitrogen 152 mg/dL (7-18) H Creatinine 2.4 MG/DL (0.55-1.30) H Estimat Glomerular Filtration Rate 21.7 mL/min (>60) Glucose Level 88 MG/DL (74-106) Uric Acid 8.2 MG/DL (2.6-7.2) H Calcium Level 8.6 MG/DL (8.5-10.1) Phosphorus Level 3.1 MG/DL (2.5-4.9) Magnesium Level 3.7 MG/DL (1.8-2.4) H Total Bilirubin 0.3 MG/DL (0.2-1.0) Aspartate Amino Transf (AST/SGOT) 21 U/L (15-37) Alanine Aminotransferase (ALT/SGPT) 14 U/L (12-78) Alkaline Phosphatase 164 U/L (46-116) H Total Creatine Kinase 43 U/L (26-308) C-Reactive Protein, Quantitative 8.1 mg/dL (0.00-0.90) H Total Protein 7.4 G/DL (6.4-8.2) Albumin 2.4 G/DL (3.4-5.0) L Globulin 5.0 g/dL Albumin/Globulin Ratio 0.5 (1.0-2.7) L Plan Problems: (1) Anemia (2) Proteinuria (3) UTI (urinary tract infection) (4) ARF (acute renal failure) (5) ACS (acute coronary syndrome) (6) Respiratory failure, acute and chronic (7) HCAP (healthcare-associated pneumonia) (8) Abrasion of lip, initial encounter (9) COPD with exacerbation (10) Hypokalemia (11) Sepsis Assessment & Plan: Leukocytosis, anemia, abnormal labs. Renal insufficiency potentially dehydrated Abnormal LFTs alk phos elevated Urine noted significant bacteria likely UTI etiology Wound stable still requiring local care IV antibiotics per infectious disease Discussed with journalism teacher Dr. Berkowitz air mattress turn q2h nutritional tf will follow with recs thank you (12) Chronic respiratory failure (13) Ascites (14) Bacteremia (15) Hypernatremia (16) Pleural effusion (17) Pacemaker (18) Aortic dissection, thoracic (19) Tracheostomy in place Assessment & Plan: trach stable no bleeding currently likely tongue etiology of mild oozing currently hemostatic without trauma (20) Feeding by G-tube Assessment & Plan: okay to resume tube feeds via g tube patent and functional dressings okay DAILY ESTIMATED NEEDS: Needs based on Pulmonary, wound 49kg 30-35 kcals/kg 5784-0440 total kcals 1.25-2 g protein/kg 61-98 g total protein Fluid per MD NUTRITION DIAGNOSIS: * Swallowing difficulty R/T dysphagia, respiratory status as evidenced by vent dep via T-collar, GT Dep. (CURRENT TF: Nepro @45ml/hr x 24 hrs) ENTERAL NUTRITION RECOMMENDATIONS: Nepro @ 40ml/hr x 24 hrs to provide 960ml, 1728kcal, 78g prot, 698ml free water * Rec LOWER current rate to 40ml/hr for 24 hrs run. 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 Base of wound is granular with bone exposure at base of sacrococcygeal.(L)10.5cm x (W06.5cm x (D) 2.8cm , undermining 11-3 by 3.6cm @12 o'clock. small amt serosanguineous exudate noted . [place] epithelial along edges bordered by darker skin tone without erythema. Resolving Pressure injury L ischium. Base of wound is 95% pink epithelial ,5% noni at center base of wound. No exudate noted. Both heels are boggy with non-Blanching erythema. Tx.plan: Cleanse Sacral wound with Saline. Loosely pack with Hydrogel impregnated Kerlix. Apply Moisture Barrier Periwound. Cover with Optifoam drsg Daily and prn. Apply Moisture Barrier paste to L Ischium. Cover with Optifoam drsg. Changee very 3 days and prn. Apply Cavilon Skin Barrier to both heels. Cover each heel with Optifoam drsgs. Change every 7 days and prn. Reposition at least every 2hours or as tolerated. Off-load heels with pillow. APM/JENNIFER Mattress overlay. Lane Saavedra Sep 18, 2019 09:38
[2019-09-18] MEDS: HYDROcodone/Acetamin 10/325 tab GT PRN (10:38)
--- NOTE | 2019-09-18 11:47 | Pulmonolgy Critical Care Note ---
Yara Castro SHEEP BONER 09/18/19 1147: Critical Care - Asmt/Plan Assessment/Plan: ASSESSMENT Acute on chronic respiratory failure, now on vent Tracheostomy status, s/p change to cuffed trach Sepsis Pulmonary edema pleural effusion Pneumonia UTI CHF ? cardiorenal COPD Acute kidney injury and chronic kidney disease Hypertension Atrial fibrillation Dysphagia , feeding by G-tube Electrolyte abnormalities Anemia Toxic metabolic encephalopathy likely due to sepsis and ARF HTN PAF PLAN OF CARE ICU on vent AC trach changed 8 pm from uncuffed to cuffed Shiley#7 XLT ABG this am on high FiO2 80% noted; unable to down titrated FiO2 CXR 09/16 -> -Worsening of right lung infiltrates and right effusion. trach care ,pulmonary toilet rapid COVID 19 NGT abx as per ID-Meropenem, Vanco SCX 10/15 + GNR UCX 09/14 + Providencia BCX 09/14 Staph epidermidis, BCX 09/15 NGTD aspiration precautions venous Duplex BLE -> NGT DVT prophylaxis thoracentesis pending fup with CXR and ABG monitor volumes now with gentle IVF monitor renal parameters, lytes, correct lytes as needed , avoid nephrotoxics hypo Na resolved - per nephro management s/p diuretic ECHO done, results pending BP management with current regimen of BB, Cardizem and Hydralazine, remains in SR monitor HH with goal to keep Hgb >7, heme on board on EPO K replaced as per nephro creat with small trend down supportive care pain management wound care bowel regimen thank you for a consult repeat ABG later today and titrate settings based on ABG results fup with CXR trach care ,pulmonary toilet rapid COVID 19 NGT abx as per ID SCX UCX BCX aspiration precautions venous Duplex BLE DVT prophylaxis monitor volumes now with IVF monitor renal parameters, lytes, correct lytes as needed , avoid nephrotoxics hypo Na resolved - per nephro management BP management with current regimen of BB, Cardizem and Hydralazine, remains in SR monitor HH with goal to keep Hgb >7, heme on board on EPO supportive care pain management wound care bowel regimen thank you for a consult Critical Care - Objective Last 24 Hour Vital Signs Date Time Temp Pulse Resp B/P (MAP) Pulse Ox O2 Delivery O2 Flow Rate FiO2 09/18/19 11:19 90 09/18/19 11:14 179/74 09/18/19 11:14 67 179/74 09/18/19 11:05 98.5 67 31 179/74 (109) 96 09/18/19 10:48 71 36 100 Mechanical Ventilator 80 74 34 80 09/18/19 10:00 71 33 174/68 (103) 92 09/18/19 09:30 66 0 100 Mechanical Ventilator 80 74 34 80 09/18/19 09:00 69 20 145/66 (92) 99 09/18/19 08:36 74 161/52 09/18/19 08:00 74 33 161/52 (88) 94 09/18/19 08:00 Mechanical Ventilator 09/18/19 08:00 80 09/18/19 08:00 98.4 73 22 161/61 (94) 97 09/18/19 07:56 74 33 100 Mechanical Ventilator 80 74 34 80 09/18/19 07:43 75 09/18/19 07:00 74 33 161/52 (88) 94 09/18/19 06:00 82 34 192/63 (106) 96 09/18/19 06:00 175/58 09/18/19 06:00 88 175/58 09/18/19 05:00 78 35 175/58 (97) 94 09/18/19 04:43 75 34 168/52 (90) 94 09/18/19 04:24 77 35 80 09/18/19 04:03 85 09/18/19 04:00 98.0 76 34 185/152 (163) 95 09/18/19 04:00 Mechanical Ventilator 09/18/19 03:28 73 34 80 09/18/19 03:12 180/157 09/18/19 03:00 78 20 180/157 (165) 100 09/18/19 02:00 70 29 176/56 (96) 100 09/18/19 01:30 70 34 100 Mechanical Ventilator 80 79 43 80 09/18/19 01:00 68 34 159/53 (88) 99 09/18/19 00:00 80 09/18/19 00:00 Mechanical Ventilator 09/18/19 00:00 98.3 69 33 158/57 (90) 100 09/17/19 23:33 74 09/17/19 23:30 72 38 80 8/4/20 23:19 186/57 09/17/19 23:19 67 186/67 09/17/19 23:00 66 33 186/57 (100) 100 09/17/19 22:00 83 34 183/55 (97) 100 09/17/19 21:46 76 162/52 09/17/19 21:03 74 31 80 09/17/19 21:00 73 29 162/52 (88) 96 09/17/19 20:35 73 09/17/19 20:13 73 30 80 09/17/19 20:00 Mechanical Ventilator 09/17/19 20:00 80 09/17/19 20:00 Mechanical Ventilator 09/17/19 20:00 98.6 79 31 161/59 (93) 100 09/17/19 20:00 72 29 100 Mechanical Ventilator 80 68 27 100 09/17/19 19:00 78 25 167/50 (89) 98 09/17/19 18:00 73 29 157/51 (86) 100 09/17/19 17:20 177/67 09/17/19 17:20 73 177/67 09/17/19 17:15 71 20 80 09/17/19 17:00 70 16 177/67 (103) 100 09/17/19 16:00 98.3 73 20 159/50 (86) 100 09/17/19 16:00 Mechanical Ventilator 09/17/19 16:00 70 09/17/19 15:21 172/55 09/17/19 15:09 71 24 100 Mechanical Ventilator 80 68 13 80 09/17/19 15:08 100 Mechanical Ventilator 80 09/17/19 15:00 64 16 168/57 (94) 100 09/17/19 14:00 62 19 161/55 (90) 98 09/17/19 13:00 61 18 156/46 (82) 95 09/17/19 12:53 59 15 80 09/17/19 12:00 97.5 62 19 147/49 (81) 94 09/17/19 12:00 Mechanical Ventilator Objective: General Appearance: no apparent distress, bedridden middle age chronically ill looking female on vent AC 450-12-80% PEEP 5 Lines, tubes and drains: peripheral HEENT: normocephalic, atraumatic, anicteric, status post trach - Shiley #7 cuffed XLT, secretions scant amount, yellow color, thick consistency Respiratory/Chest: no accessory muscle use, few scattered rhonchi bilaterally Cardiovascular/Chest: normal rate, regular rhythm - SR on tele Abdomen: normal bowel sounds, non tender, soft, G tube Genitourinary/Rectal: [place] Extremities: no edema Skin Exam: warm/dry, multiple tattoos all over the body Neurologic: abnormal gait, asleep, arousable Musculoskeletal: atrophy - BLE Micro: Microbiology Date/Time Source Procedure Growth Status 09/16/19 18:35 Blood Blood Culture - Preliminary NO GROWTH AFTER 24 HOURS Resulted 09/16/19 18:05 Blood Blood Culture - Preliminary NO GROWTH AFTER 24 HOURS Resulted 09/16/19 16:50 Sputum Gram Stain - Final Resulted 09/16/19 16:50 Sputum Culture - Preliminary Gram Negative Bacillus 1 Resulted 09/16/19 15:30 Nasopharynx SARS-CoV-2 RdRp Gene Assay - Final Complete Critical Care - Subjective ROS Limited/Unobtainable: Yes Interval Events: in ICU uncuffed trach was changed yesterday to cuffed Shiley #7 XLT leuk with small trend up, afebrile high Fio2 80% ECHO just completed thoracentesis pending Condition: critical EKG Rhythm: Sinus Rhythm FI02: 90 Vent Support Breath Rate: 12 Vent Support Mode: AC Vent Tidal Volume: 450 Sputum Amount: Small PEEP: 6.0 PIP: 28 Fluids: D5NS at 50 Tube Feeding Amount: 0 I&O: Intake and Output 09/17/19 09/18/19 19:00 07:00 Intake Total 1163.33 ml 1315 ml Output Total 500 ml 700 ml Balance 663.33 ml 615 ml Intake Free Water 100 ml IV Total 658.33 ml 1135 ml Tube Feeding 405 ml 180 ml Output Urine Total 500 ml 700 ml # Bowel Movements 3 CXR: CXR 09/16 Worsening of right lung infiltrates and right effusion. Bang Guardado MD 09/18/19 1507: Critical Care - Asmt/Plan Assessment/Plan: Patient seen and examined with SHEEP BONER. Agree with above A&P as it reflects our joint deliberations. Stable but continued ventilator need. Wean down FiO2. Not felt to have sufficient fluid for thoracentesis. Overall renal function some improvement, positive fluid balance with low dose lasix given yesterday in setting of IVF. Will cont to wean down FiO2 and repeat CXR tomorrow. If continued unclear picture may consider CT chest for better evaluation. Add mucomyst to duonebs for improved secretion clearance. CC Time: 40 min Yara Castro NP Sep 18, 2019 11:47 Bagn Guardado MD Sep 18, 2019 15:07
--- NOTE | 2019-09-18 12:25 | Infectious Diseases Prog Note ---
Assessment/Plan Assessment: Acute hypoxic resp failure- now on MV Fio2 80%> 90% 09/17- r.o PE Pneumonia- COVID19 neg x2 -09/16 CXR: Worsening of right lung infiltrates and right effusion. V. duplex: NO DVT D-dimer elevated -09/15 Rapid COVID pCR neg sp cx GNR -09/14 CXR: Bilateral airspace opacities, preferentially involving the right lung, consistent with multifocal infiltrate. Trace bilateral pleural effusions. No pneumothorax. rapid COVID PCR neg Gram positive bacteremia- real vs contaminant; does have hx of infected PPM- could be a possibility- ro endocarditis -09/14 Bcx / GPC clusters; 09/15 Bcx NTD UTI -09/14 u/a wbc tnct, nit neg, leuk +3; ucx >100k MDR P. stuarti (S Ceftriaxone , Meropenem) Afebrile Leukocytosis, mild; increasing JAVIER on CKD, improving -Renal US: Limited exam due to abdominal ascites and shadowing from bowel gas. CT recommended for more sensitive evaluation. Moderate right hydronephrosis. Increased renal parenchymal echogenicity suggesting intrinsic/ medical renal disease. Question indwelling left ureteral stent versus artifact. Bladder not visualized. 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 epi-11/2018, sp > 6weeks IV vancomycin -11/27 SP ABBIE: no evidence for vegetation on any of the valves -11/26/18 SP PPM removal: -OR findings:The fibrous capsule enclosing the generator was then opened and there was a [id number] amount of yellowish fluid drainage. The generator was then removed.Atrial and ventricular leads were detached. The necrotic tissue of the pocket was then removed and the pocket was flushed with an antibiotic solution. -Capsule, wound tissue and lead tip cx: Neg -2d echo: no vegetation seen -US chest: 4.6 x 3.4 x 0.9 cm hypoechoic/anechoic area overlying left chest pacemaker power pack. This could represent either a discrete fluid collection or a focal area of very edematous tissue. Infected fluid pocket also possible. -11/18 Bcx 3/4 S. epi; 11/20 Bcx neg; 11/24 Bcx Neg; 11/27 Bcx Neg Hx of PNA -11/2019 sp cx PsA (arnett S), ABC (I Ceftriaxone; otherwise negative) - -sp cx MRSA, ABC (I Ceftriaxone; otherwise S) Afib HTN dysphagia sp GT aortic dissection s/p repair 2018, s/p PPM Parkinson's Disease schizophrenia anxiety COPD chronic resp failure s/p trach hx of tracheal bleeding NH resident ([facility]) Plan: -Empiric Meropenem #2 -empiric IV Vancomycin #3 for GPC bacteremia -09/16 SP Cefepime #3, Levaquin #3 -f/u cx -Monitor CBC/CMP, temperatures -f/u Bcx x2, sp cx -f/u 2d echo -COVID19 neg x2 -ICU/ trach/ peg care -aspiration precautions Thank you for this consultation. Will continue to follow along with you. Discussed with RN. Subjective Allergies: Coded Allergies: No Known Allergies (Unverified , 10/10/17) afebrile FIo2 90% wbc increased repeat Bcx NTD Objective Last 24 Hour Vital Signs Date Time Temp Pulse Resp B/P (MAP) Pulse Ox O2 Delivery O2 Flow Rate FiO2 09/18/19 11:19 90 09/18/19 11:14 179/74 09/18/19 11:14 67 179/74 09/18/19 11:05 98.5 67 31 179/74 (109) 96 09/18/19 10:48 71 36 100 Mechanical Ventilator 80 74 34 80 09/18/19 10:00 71 33 174/68 (103) 92 09/18/19 09:30 66 0 100 Mechanical Ventilator 80 74 34 80 09/18/19 09:00 69 20 145/66 (92) 99 09/18/19 08:36 74 161/52 09/18/19 08:00 74 33 161/52 (88) 94 09/18/19 08:00 Mechanical Ventilator 09/18/19 08:00 80 09/18/19 08:00 98.4 73 22 161/61 (94) 97 09/18/19 07:56 74 33 100 Mechanical Ventilator 80 74 34 80 09/18/19 07:43 75 09/18/19 07:00 74 33 161/52 (88) 94 09/18/19 06:00 82 34 192/63 (106) 96 09/18/19 06:00 175/58 09/18/19 06:00 88 175/58 09/18/19 05:00 78 35 175/58 (97) 94 09/18/19 04:43 75 34 168/52 (90) 94 09/18/19 04:24 77 35 80 09/18/19 04:03 85 09/18/19 04:00 98.0 76 34 185/152 (163) 95 09/18/19 04:00 Mechanical Ventilator 09/18/19 03:28 73 34 80 09/18/19 03:12 180/157 09/18/19 03:00 78 20 180/157 (165) 100 09/18/19 02:00 70 29 176/56 (96) 100 09/18/19 01:30 70 34 100 Mechanical Ventilator 80 79 43 80 09/18/19 01:00 68 34 159/53 (88) 99 09/18/19 00:00 80 09/18/19 00:00 Mechanical Ventilator 09/18/19 00:00 98.3 69 33 158/57 (90) 100 09/17/19 23:33 74 09/17/19 23:30 72 38 80 09/17/19 23:19 186/57 09/17/19 23:19 67 186/67 09/17/19 23:00 66 33 186/57 (100) 100 09/17/19 22:00 83 34 183/55 (97) 100 09/17/19 21:46 76 162/52 09/17/19 21:03 74 31 80 09/17/19 21:00 73 29 162/52 (88) 96 09/17/19 20:35 73 09/17/19 20:13 73 30 80 09/17/19 20:00 Mechanical Ventilator 09/17/19 20:00 80 09/17/19 20:00 Mechanical Ventilator 09/17/19 20:00 98.6 79 31 161/59 (93) 100 09/17/19 20:00 72 29 100 Mechanical Ventilator 80 68 27 100 09/17/19 19:00 78 25 167/50 (89) 98 09/17/19 18:00 73 29 157/51 (86) 100 09/17/19 17:20 177/67 09/17/19 17:20 73 177/67 09/17/19 17:15 71 20 80 09/17/19 17:00 70 16 177/67 (103) 100 09/17/19 16:00 98.3 73 20 159/50 (86) 100 09/17/19 16:00 Mechanical Ventilator 09/17/19 16:00 70 09/17/19 15:21 172/55 09/17/19 15:09 71 24 100 Mechanical Ventilator 80 68 13 80 09/17/19 15:08 100 Mechanical Ventilator 80 09/17/19 15:00 64 16 168/57 (94) 100 09/17/19 14:00 62 19 161/55 (90) 98 09/17/19 13:00 61 18 156/46 (82) 95 09/17/19 12:53 59 15 80 09/17/19 12:00 97.5 62 19 147/49 (81) 94 09/17/19 12:00 Mechanical Ventilator Height (Feet): 5 Height (Inches): 5.00 Weight (Pounds): 118 Cardiovascular: RSR Respiratory: decreased breath sounds Abdomen: soft, non-tender, present bowel sounds Extremities: no edema, no tenderness, no cyanosis Microbiology Date/Time Source Procedure Growth Status 09/16/19 18:35 Blood Blood Culture - Preliminary NO GROWTH AFTER 24 HOURS Resulted 09/16/19 18:05 Blood Blood Culture - Preliminary NO GROWTH AFTER 24 HOURS Resulted 09/16/19 16:50 Sputum Gram Stain - Final Resulted 09/16/19 16:50 Sputum Culture - Preliminary Gram Negative Bacillus 1 Resulted 09/16/19 15:30 Nasopharynx SARS-CoV-2 RdRp Gene Assay - Final Complete Laboratory Tests Test 09/17/19 12:59 09/17/19 14:23 09/18/19 03:00 09/18/19 10:45 Arterial Blood pH 7.350 (7.350-7.450) 7.368 (7.350-7.450) Arterial Blood Partial Pressure CO2 37.6 mmHg (35.0-45.0) 31.3 mmHg (35.0-45.0) L Arterial Blood Partial Pressure O2 56.4 mmHg (75.0-100.0) L 57.7 mmHg (75.0-100.0) L Arterial Blood HCO3 20.3 mmol/L (22.0-26.0) L 17.6 mmol/L (22.0-26.0) *L Arterial Blood Oxygen Saturation 89.5 % (95-100) *L 91.2 % (95-100) L Arterial Blood Base Excess -4.3 (-2-2) L -6.9 (-2-2) L Rojas Test Positive Positive Urine Legionella Antigen Pending White Blood Count 13.5 K/UL (4.8-10.8) H Red Blood Count 2.77 M/UL (4.20-5.40) L Hemoglobin 8.8 G/DL (12.0-16.0) L Hematocrit 26.1 % (37.0-47.0) L Mean Corpuscular Volume 94 FL (80-99) Mean Corpuscular Hemoglobin 31.8 PG (27.0-31.0) H Mean Corpuscular Hemoglobin Concent 33.6 G/DL (32.0-36.0) Red Cell Distribution Width 15.0 % (11.6-14.8) H Platelet Count 419 K/UL (150-450) Mean Platelet Volume 4.5 FL (6.5-10.1) L Neutrophils (%) (Auto) 77.6 % (45.0-75.0) H Lymphocytes (%) (Auto) 11.8 % (20.0-45.0) L Monocytes (%) (Auto) 6.7 % (1.0-10.0) Eosinophils (%) (Auto) 3.3 % (0.0-3.0) H Basophils (%) (Auto) 0.7 % (0.0-2.0) D-Dimer 2.86 mg/L FEU (0.00-0.49) H Sodium Level 137 MMOL/L (136-145) Potassium Level 2.8 MMOL/L (3.5-5.1) L Chloride Level 101 MMOL/L (98-107) Carbon Dioxide Level 20 MMOL/L (21-32) L Anion Gap 16 mmol/L (5-15) H Blood Urea Nitrogen 152 mg/dL (7-18) H Creatinine 2.4 MG/DL (0.55-1.30) H Estimat Glomerular Filtration Rate 21.7 mL/min (>60) Glucose Level 88 MG/DL (74-106) Uric Acid 8.2 MG/DL (2.6-7.2) H Calcium Level 8.6 MG/DL (8.5-10.1) Phosphorus Level 3.1 MG/DL (2.5-4.9) Magnesium Level 3.7 MG/DL (1.8-2.4) H Total Bilirubin 0.3 MG/DL (0.2-1.0) Aspartate Amino Transf (AST/SGOT) 21 U/L (15-37) Alanine Aminotransferase (ALT/SGPT) 14 U/L (12-78) Alkaline Phosphatase 164 U/L (46-116) H Total Creatine Kinase 43 U/L (26-308) C-Reactive Protein, Quantitative 8.1 mg/dL (0.00-0.90) H Total Protein 7.4 G/DL (6.4-8.2) Albumin 2.4 G/DL (3.4-5.0) L Globulin 5.0 g/dL Albumin/Globulin Ratio 0.5 (1.0-2.7) L Current Medications Medications (Trade) Dose Ordered Sig/Penny Route PRN Reason Start Time Stop Time Status Last Admin Dose Admin Acetaminophen/ Hydrocodone Bitart ([place] 10/325) 1 tab Q6H PRN GT For Pain 09/17/19 13:30 09/22/19 07:29 09/18/19 10:38 Albuterol/ Ipratropium (Albuterol/ Ipratropium) 3 ml Q6HRT HHN 09/17/19 13:00 09/20/19 12:59 09/18/19 07:55 Clonazepam (KlonoPIN) 0.5 mg Q12HR GT 09/17/19 21:00 09/22/19 08:59 09/18/19 08:37 Dextrose/Sodium Chloride 1,000 ml @ 50 mls/hr Q20H IV 09/18/19 09:00 10/17/19 08:59 09/18/19 08:37 Diltiazem HCl (Cardizem Tab) 60 mg EVERY 6 HOURS GT 09/17/19 12:00 10/15/19 11:59 09/18/19 11:14 Docusate Sodium (Colace) 100 mg TID GT 09/17/19 13:00 10/15/19 08:59 Epoetin Gelacio (Epoetin Gelacio-EPBX(NON ESRD)) 10,000 unit SUBQ 09/18/19 21:00 12/15/19 20:59 Haloperidol Lactate 5 mg/ Dextrose 56 ml @ 224 mls/hr EVERY 12 HOURS PRN IVPB Agitation 09/18/19 07:00 11/02/19 06:59 Heparin Sodium (Porcine) (Heparin 5000 units/ml) 5,000 units EVERY 12 HOURS SUBQ 09/17/19 21:00 10/30/19 08:59 Hydralazine HCl (Apresoline) 10 mg Q4H PRN IV BP over 160 systolic 09/17/19 11:15 12/14/19 11:14 09/18/19 03:12 Hydralazine HCl (Apresoline) 50 mg Q6HR GT 09/17/19 12:00 12/15/19 17:59 09/18/19 11:14 Ipratropium [place] (Atrovent) 500 mcg Q4H PRN HHN Shortness of Breath 09/17/19 11:15 09/22/19 11:14 Lorazepam (Ativan 2mg/ml 1ml) 2 mg Q4H PRN IV For Anxiety 09/17/19 20:00 09/24/19 19:59 09/18/19 06:14 Meropenem 1 gm/ Sodium Chloride 55 ml @ 110 mls/hr Q12HR IVPB 09/17/19 13:00 09/22/19 12:59 09/18/19 08:37 Metoprolol Tartrate (Lopressor) 50 mg EVERY 12 HOURS GT 09/17/19 21:00 12/14/19 08:59 09/18/19 08:36 Olanzapine (ZyPREXA) 2.5 mg DAILY GT 09/18/19 09:00 10/30/19 08:59 09/18/19 08:36 Oxycodone HCl (Roxicodone) 5 mg Q4H PRN GT Severe Pain (Pain Scale 7-10) 09/17/19 11:15 09/22/19 11:14 09/18/19 03:56 Potassium Chloride 100 ml @ 100 mls/hr Q1H IVPB 09/18/19 09:00 09/18/19 12:59 09/18/19 11:05 Sertraline HCl (Zoloft) 100 mg BEDTIME GT 09/17/19 21:00 10/15/19 20:59 09/17/19 21:46 Vancomycin HCl ([facility] pharmacy to dose) 1 ea DAILY PRN MISC Per rx protocol 09/18/19 09:00 10/16/19 13:44 Doreen Nino M.D. Sep 18, 2019 12:25
--- NOTE | 2019-09-18 12:41 | Nephrology Progress Note ---
Assessment/Plan Problem List: (1) JAVIER (acute kidney injury) (2) Renal failure (ARF), acute on chronic (3) Dehydration (4) Electrolyte imbalance (5) Anemia (6) Respiratory failure, acute and chronic (7) COPD with exacerbation Assessment Patient is presented with sepsis and pneumonia and UTI Patient has acute renal failure, possible underlying chronic kidney failure Severe anemia Electrolyte imbalances: Hyponatremia, hypo-kalemia Chronic respiratory failure, COPD exacerbation Plan Suggestions: Potassium supplement IV Slow IV hydration Epogen subcu Adjust blood pressure medication IV fluid, rate adjusted Norman catheter, intake and output Monitor renal parameters Avoid nephrotoxic's Antibiotics Per orders 2D echocardiogram Kidney ultrasound Subjective ROS Limited/Unobtainable: Yes Objective Objective Last 24 Hour Vital Signs Date Time Temp Pulse Resp B/P (MAP) Pulse Ox O2 Delivery O2 Flow Rate FiO2 09/18/19 12:00 Mechanical Ventilator 09/18/19 12:00 98.0 62 31 144/62 (89) 95 09/18/19 11:19 90 09/18/19 11:19 67 09/18/19 11:14 179/74 09/18/19 11:14 67 179/74 09/18/19 11:05 98.5 67 31 179/74 (109) 96 09/18/19 10:48 71 36 100 Mechanical Ventilator 80 74 34 80 09/18/19 10:00 71 33 174/68 (103) 92 09/18/19 09:30 66 0 100 Mechanical Ventilator 80 74 34 80 09/18/19 09:00 69 20 145/66 (92) 99 09/18/19 08:36 74 161/52 09/18/19 08:00 74 33 161/52 (88) 94 09/18/19 08:00 Mechanical Ventilator 09/18/19 08:00 80 09/18/19 08:00 98.4 73 22 161/61 (94) 97 09/18/19 07:56 74 33 100 Mechanical Ventilator 80 74 34 80 09/18/19 07:43 75 09/18/19 07:00 74 33 161/52 (88) 94 09/18/19 06:00 82 34 192/63 (106) 96 09/18/19 06:00 175/58 09/18/19 06:00 88 175/58 09/18/19 05:00 78 35 175/58 (97) 94 09/18/19 04:43 75 34 168/52 (90) 94 09/18/19 04:24 77 35 80 09/18/19 04:03 85 09/18/19 04:00 98.0 76 34 185/152 (163) 95 09/18/19 04:00 Mechanical Ventilator 09/18/19 03:28 73 34 80 09/18/19 03:12 180/157 09/18/19 03:00 78 20 180/157 (165) 100 09/18/19 02:00 70 29 176/56 (96) 100 09/18/19 01:30 70 34 100 Mechanical Ventilator 80 79 43 80 09/18/19 01:00 68 34 159/53 (88) 99 09/18/19 00:00 80 09/18/19 00:00 Mechanical Ventilator 09/18/19 00:00 98.3 69 33 158/57 (90) 100 09/17/19 23:33 74 09/17/19 23:30 72 38 80 09/17/19 23:19 186/57 09/17/19 23:19 67 186/67 09/17/19 23:00 66 33 186/57 (100) 100 09/17/19 22:00 83 34 183/55 (97) 100 09/17/19 21:46 76 162/52 09/17/19 21:03 74 31 80 09/17/19 21:00 73 29 162/52 (88) 96 09/17/19 20:35 73 09/17/19 20:13 73 30 80 09/17/19 20:00 Mechanical Ventilator 09/17/19 20:00 80 09/17/19 20:00 Mechanical Ventilator 09/17/19 20:00 98.6 79 31 161/59 (93) 100 09/17/19 20:00 72 29 100 Mechanical Ventilator 80 68 27 100 09/17/19 19:00 78 25 167/50 (89) 98 09/17/19 18:00 73 29 157/51 (86) 100 09/17/19 17:20 177/67 09/17/19 17:20 73 177/67 09/17/19 17:15 71 20 80 09/17/19 17:00 70 16 177/67 (103) 100 09/17/19 16:00 98.3 73 20 159/50 (86) 100 09/17/19 16:00 Mechanical Ventilator 09/17/19 16:00 70 09/17/19 15:21 172/55 09/17/19 15:09 71 24 100 Mechanical Ventilator 80 68 13 80 09/17/19 15:08 100 Mechanical Ventilator 80 09/17/19 15:00 64 16 168/57 (94) 100 09/17/19 14:00 62 19 161/55 (90) 98 09/17/19 13:00 61 18 156/46 (82) 95 09/17/19 12:53 59 15 80 Intake and Output 09/17/19 09/18/19 19:00 07:00 Intake Total 1163.33 ml 1315 ml Output Total 500 ml 700 ml Balance 663.33 ml 615 ml Intake Free Water 100 ml IV Total 658.33 ml 1135 ml Tube Feeding 405 ml 180 ml Output Urine Total 500 ml 700 ml # Bowel Movements 3 Current Medications Medications (Trade) Dose Ordered Sig/Penny Route PRN Reason Start Time Stop Time Status Last Admin Dose Admin Acetaminophen/ Hydrocodone Bitart ([place] 10/325) 1 tab Q6H PRN GT For Pain 09/17/19 13:30 09/22/19 07:29 09/18/19 10:38 Acetylcysteine (Mucomyst) 200 mg Q6HRT N 09/18/19 19:00 12/17/19 18:59 Albuterol/ Ipratropium (Albuterol/ Ipratropium) 3 ml Q6HRT N 09/17/19 13:00 09/20/19 12:59 09/18/19 07:55 Clonazepam (KlonoPIN) 0.5 mg Q12HR GT 09/17/19 21:00 09/22/19 08:59 09/18/19 08:37 Dextrose/Sodium Chloride 1,000 ml @ 50 mls/hr Q20H IV 09/18/19 09:00 10/17/19 08:59 09/18/19 08:37 Diltiazem HCl (Cardizem Tab) 60 mg EVERY 6 HOURS GT 09/17/19 12:00 10/15/19 11:59 09/18/19 17:49 Docusate Sodium (Colace) 100 mg TID GT 09/17/19 13:00 10/15/19 08:59 09/18/19 17:49 Epoetin Gelacio (Epoetin Gelacio-EPBX(NON ESRD)) 10,000 unit MON-MON-MON SUBQ 09/18/19 21:00 12/15/19 20:59 Haloperidol Lactate 5 mg/ Dextrose 56 ml @ 224 mls/hr EVERY 12 HOURS PRN IVPB Agitation 09/18/19 07:00 11/02/19 06:59 09/18/19 15:21 Heparin Sodium (Porcine) (Heparin 5000 units/ml) 5,000 units EVERY 12 HOURS SUBQ 09/17/19 21:00 10/30/19 08:59 Hydralazine HCl (Apresoline) 10 mg Q4H PRN IV BP over 160 systolic 09/17/19 11:15 12/14/19 11:14 09/18/19 03:12 Hydralazine HCl (Apresoline) 50 mg Q6HR GT 09/17/19 12:00 12/15/19 17:59 09/18/19 17:49 Ipratropium [place] (Atrovent) 500 mcg Q4H PRN HHN Shortness of Breath 09/17/19 11:15 09/22/19 11:14 Lorazepam (Ativan 2mg/ml 1ml) 2 mg Q4H PRN IV For Anxiety 09/17/19 20:00 09/24/19 19:59 09/18/19 06:14 Meropenem 1 gm/ Sodium Chloride 55 ml @ 110 mls/hr Q12HR IVPB 09/17/19 13:00 09/22/19 12:59 09/18/19 08:37 Metoprolol Tartrate (Lopressor) 50 mg EVERY 12 HOURS GT 09/17/19 21:00 12/14/19 08:59 09/18/19 08:36 Olanzapine (ZyPREXA) 2.5 mg DAILY GT 09/18/19 09:00 10/30/19 08:59 09/18/19 08:36 Oxycodone HCl (Roxicodone) 5 mg Q4H PRN GT Severe Pain (Pain Scale 7-10) 09/17/19 11:15 09/22/19 11:14 09/18/19 14:48 Sertraline HCl (Zoloft) 100 mg BEDTIME GT 09/17/19 21:00 9/1/20 20:59 09/17/19 21:46 [facility] PRN MISC Per rx protocol 09/18/19 09:00 10/16/19 13:44 Laboratory Tests 09/17/19 12:59: Arterial Blood pH 7.350, Arterial Blood Partial Pressure CO2 37.6, Arterial Blood Partial Pressure O2 56.4L, Arterial Blood HCO3 20.3L, Arterial Blood Oxygen Saturation 89.5*L, Arterial Blood Base Excess -4.3L, Rojas Test Positive 09/17/19 14:23: Urine Legionella Antigen [Pending] 09/18/19 03:00: White Blood Count 13.5H, Red Blood Count 2.77L, Hemoglobin 8.8L, Hematocrit 26.1L, Mean Corpuscular Volume 94, Mean Corpuscular Hemoglobin 31.8H, Mean Corpuscular Hemoglobin Concent 33.6, Red Cell Distribution Width 15.0H, Platelet Count 419, Mean Platelet Volume 4.5L, Neutrophils (%) (Auto) 77.6H, Lymphocytes (%) (Auto) 11.8L, Monocytes (%) (Auto) 6.7, Eosinophils (%) (Auto) 3.3H, Basophils (%) (Auto) 0.7, D-Dimer 2.86H, Sodium Level 137, Potassium Level 2.8L, Chloride Level 101, Carbon Dioxide Level 20L, Anion Gap 16H, Blood Urea Nitrogen 152H, Creatinine 2.4H, Estimat Glomerular Filtration Rate 21.7, Glucose Level 88, Uric Acid 8.2H, Calcium Level 8.6, Phosphorus Level 3.1, Magnesium Level 3.7H, Total Bilirubin 0.3, Aspartate Amino Transf (AST/SGOT) 21 , Alanine Aminotransferase (ALT/SGPT) 14, Alkaline Phosphatase 164H, Total Creatine Kinase 43, C-Reactive Protein, Quantitative 8.1H, Total Protein 7.4, Albumin 2.4L, Globulin 5.0, Albumin/Globulin Ratio 0.5L 09/18/19 10:45: Arterial Blood pH 7.368, Arterial Blood Partial Pressure CO2 31.3L, Arterial Blood Partial Pressure O2 57.7L, Arterial Blood HCO3 17.6*L, Arterial Blood Oxygen Saturation 91.2L, Arterial Blood Base Excess -6.9L, Rojas Test Positive Height (Feet): 5 Height (Inches): 5.00 Weight (Pounds): 118 General Appearance: no apparent distress EENT: other - Trach to vent Cardiovascular: normal rate Respiratory/Chest: decreased breath sounds Abdomen: distended Extremities: other - Edematous Johnny Houston MD Sep 18, 2019 12:41
--- NOTE | 2019-09-18 14:21 | Diagnostic Imaging Report ---
Indication: Pleural effusion Technique: US Chest Comparison: None Findings: Focused ultrasound scanning was performed of the chest to assess for the possibility of bedside thoracentesis. Only trace effusion is noted on the right. On the left there is a small pleural effusion however the majority of some pulmonic and there is no safe access for thoracentesis. Note that positioning is difficult as patient cannot fully cooperate with exam positioning given condition. IMPRESSION: Trace right and small left pleural effusions. No safe window identified for bedside thoracentesis. Note that the majority of the left pleural effusion is subpulmonic.
--- NOTE | 2019-09-18 14:42 | Diagnostic Imaging Report ---
Indication: Dyspnea Technique: XRAY Chest 1v Comparison: 09/17/2019 Findings: Heart size is stable. Tracheostomy tube again noted. Persistent opacities noted in the right lung although there is decreased hazy opacification of the bilateral bases suggesting improved aeration or decreased layering pleural fluid. No pneumothorax. Osseous structures stable. IMPRESSION: Improved aeration with decreased hazy bilateral opacities which may related to improved airspace disease and/or decreased layering pleural fluid.
[2019-09-18] MEDS: Haloperidol Lactate 5 MG in D5W 55 ML IVPB PRN (15:21)
[2019-09-18] MEDS ORDERED: Tubing IV Secondary IV ONE ×2 (18:32→18:34)
[2019-09-18] MEDS ORDERED: D5NS 1000ml IV ONE ×2 (18:32→18:34)
[2019-09-18] MEDS ORDERED: NS 275ml ONE ×2 (18:32→18:34)
[2019-09-18] MEDS ORDERED: 1/2 NS 1000ml IV ONE (18:34)
[2019-09-18] MEDS: Acetylcysteine 20% Soln 4ml HHN SCH (20:01)
[2019-09-18] MEDS: Epoetin Alfa-EPBX (NON ESRD)10,000 unit/ml vial SUBQ SCH (20:41)
[2019-09-18] MEDS: Sertraline 100mg tab GT SCH (20:42)
[2019-09-19] VITALS (24 sets, daily range): BP systolic 136–179; BP diastolic 48–68
[2019-09-19] MEDS: LORazepam Inj 2mg/ml 1ml IV PRN ×4 (00:34→20:42)
[2019-09-19] MEDS: HydrALAZINE 50mg tab GT SCH ×4 (00:39→18:09)
[2019-09-19] MEDS: dilTIAZem HCl 60mg tab GT SCH ×4 (00:39→18:09)
[2019-09-19] MEDS: Acetylcysteine 20% Soln 4ml HHN SCH ×4 (01:28→19:36)
[2019-09-19] MEDS: HYDROcodone/Acetamin 10/325 tab GT PRN ×2 (01:38→23:58)
[2019-09-19] MEDS: Albuterol/Ipratropium 3ml neb HHN SCH ×4 (01:46→19:36)
[2019-09-19 04:55] LABS: BASOPHILS % (AUTO) 0.8 % (0.0-2.0); EOSINOPHILS % (AUTO) 4.3 % (0.0-3.0); HEMOGLOBIN 9.6 G/DL (12.0-16.0); LYMPHOCYTES % (AUTO) 19.9 % (20.0-45.0); MEAN CORPUSCULAR VOLUME 95 FL (80-99); MONOCYTES % (AUTO) 6.7 % (1.0-10.0); NEUTROPHILS % (AUTO) 68.4 % (45.0-75.0); PLATELET COUNT 421 K/UL (150-450); RED BLOOD COUNT 3.06 M/UL (4.20-5.40); RED CELL DISTRIBUTION WIDTH 15.7 % (11.6-14.8); WHITE BLOOD COUNT 12.1 K/UL (4.8-10.8)
[2019-09-19 05:17] LABS: ALANINE AMINOTRANSFERASE 14 U/L (12-78); ALBUMIN 2.7 G/DL (3.4-5.0); ALBUMIN/GLOBULIN RATIO 0.5 (1.0-2.7); ALKALINE PHOSPHATASE 167 U/L (46-116); ANION GAP 15 mmol/L (5-15); ASPARTATE AMINO TRANSFERASE 23 U/L (15-37); BILIRUBIN,TOTAL 0.3 MG/DL (0.2-1.0); BLOOD UREA NITROGEN 143 mg/dL (7-18); CALCIUM 8.7 MG/DL (8.5-10.1); CARBON DIOXIDE 20 MMOL/L (21-32); CHLORIDE 102 MMOL/L (98-107); CREATININE 2.4 MG/DL (0.55-1.30); PHOSPHORUS 3.7 MG/DL (2.5-4.9); POTASSIUM 3.2 MMOL/L (3.5-5.1); SODIUM 137 MMOL/L (136-145)
[2019-09-19] MEDS: D5NS 1,000 ML IV SCH (05:33)
[2019-09-19] MEDS: Meropenem 1 GM in NS 55 ML IVPB SCH ×2 (08:12→20:41)
[2019-09-19] MEDS: Docusate 100mg/10ml Liq GT SCH ×3 (08:12→18:09)
[2019-09-19] MEDS: clonazePAM 0.5mg tab GT SCH ×2 (08:12→20:41)
[2019-09-19] MEDS: OLANZapine 2.5mg tab GT SCH (08:12)
[2019-09-19] MEDS: Haloperidol Lactate 5 MG in D5W 55 ML IVPB PRN ×2 (08:13→22:53)
[2019-09-19] MEDS: Metoprolol Tartrate 50mg tab GT SCH ×2 (08:13→20:43)
[2019-09-19] MEDS: oxyCODONE 5mg IR tab GT PRN ×2 (08:14→20:41)
[2019-09-19] MEDS: Heparin 5000 units/ml inj SUBQ SCH ×2 (08:17→20:43)
--- NOTE | 2019-09-19 09:46 | Pulmonolgy Critical Care Note ---
Yara Castro CHIP FRIER 09/19/19 0946: Critical Care - Asmt/Plan Assessment/Plan: ASSESSMENT Acute on chronic respiratory failure, now on vent Tracheostomy status, s/p change to cuffed trach Sepsis Pulmonary edema pleural effusion Pneumonia UTI CHF ? cardiorenal COPD Acute kidney injury and chronic kidney disease Hypertension Atrial fibrillation Moderate pulm HTN Dysphagia , feeding by G-tube Electrolyte abnormalities Anemia Toxic metabolic encephalopathy likely due to sepsis and ARF HTN PAF PLAN OF CARE ICU on vent AC trach changed 09/16 pm from uncuffed to cuffed Shiley#7 XLT CXR 09/16 -> -Worsening of right lung infiltrates and right effusion. tap on 09/17 not done, felt by IR not safe due to small amounts of pleural effusion ABG this am on high FiO2 80% noted; unable to down titrated FiO2 CXR 09/17 ->Improved aeration with decreased hazy bilateral opacities which may related toimproved airspace disease and/or decreased layering pleural fluid. however desaturated over night ANG this am on 100% FiO2 with hypoxia will get stat VQ scan check lactate level repeat rapid COVID 19 fup with CXR and ABG trach care ,pulmonary toilet prior rapid COVID 19 NGT x2 abx as per ID-Meropenem, Vanco SCX 8/2 + GNR UCX /2 + Providencia BCX 09/14 Staph epidermidis, BCX 09/15 NGTD aspiration precautions venous Duplex BLE -> NGT DVT prophylaxis monitor volumes now with gentle IVF monitor renal parameters, lytes, correct lytes as needed , avoid nephrotoxics hypo Na resolved - per nephro management s/p diuretic ECHO with pEF , moderate pulm HTN and moderate AR BP management with current regimen of BB, Cardizem and Hydralazine, remains in SR monitor HH with goal to keep Hgb >7, heme on board on EPO K replaced as per nephro creat with small trend down supportive care pain management wound care bowel regimen thank you for a consult repeat ABG later today and titrate settings based on ABG results fup with CXR trach care ,pulmonary toilet rapid COVID 19 NGT abx as per ID SCX UCX BCX aspiration precautions venous Duplex BLE DVT prophylaxis monitor volumes now with IVF monitor renal parameters, lytes, correct lytes as needed , avoid nephrotoxics hypo Na resolved - per nephro management BP management with current regimen of BB, Cardizem and Hydralazine, remains in SR monitor HH with goal to keep Hgb >7, heme on board on EPO supportive care pain management wound care bowel regimen thank you for a consult Critical Care - Objective Last 24 Hour Vital Signs Date Time Temp Pulse Resp B/P (MAP) Pulse Ox O2 Delivery O2 Flow Rate FiO2 09/19/19 08:13 71 141/48 09/19/19 08:00 100 09/19/19 08:00 97.3 66 20 141/48 (79) 98 09/19/19 08:00 Mechanical Ventilator 09/19/19 07:28 78 38 75 09/19/19 07:00 79 37 164/67 (99) 91 09/19/19 06:00 82 37 161/64 (96) 88 09/19/19 05:33 170/59 09/19/19 05:33 73 170/59 09/19/19 05:18 68 24 75 09/19/19 05:00 71 34 170/59 (96) 93 09/19/19 04:00 Mechanical Ventilator 09/19/19 04:00 75 09/19/19 04:00 98.5 73 36 170/62 (98) 93 09/19/19 03:04 69 20 75 09/19/19 03:02 68 09/19/19 03:00 68 34 150/59 (89) 92 09/19/19 02:00 70 36 149/54 (85) 93 09/19/19 01:29 65 21 96 Mechanical Ventilator 75 62 22 75 09/19/19 01:00 73 37 157/63 (94) 94 09/19/19 00:39 177/62 09/19/19 00:39 76 177/62 09/19/19 00:00 98.1 69 36 177/62 (100) 89 09/19/19 00:00 75 09/19/19 00:00 Mechanical Ventilator 09/18/19 23:59 70 09/18/19 23:02 72 28 75 09/18/19 23:00 71 27 160/82 (108) 96 09/18/19 22:25 64 31 148/57 (87) 96 09/18/19 22:10 172/62 09/18/19 22:00 67 34 172/62 (98) 91 09/18/19 21:16 77 22 75 09/18/19 21:00 73 33 158/58 (91) 86 09/18/19 20:45 80 27 158/61 (93) 98 09/18/19 20:42 80 106/72 09/18/19 20:37 80 27 106/72 (83) 98 09/18/19 20:00 75 09/18/19 20:00 97.9 75 22 152/67 (95) 98 09/18/19 20:00 Mechanical Ventilator 09/18/19 19:58 75 24 98 Mechanical Ventilator 75 75 27 75 09/18/19 19:00 74 26 160/68 (98) 95 09/18/19 18:00 98.1 67 33 140/60 (86) 96 09/18/19 17:50 75 09/18/19 17:49 165/73 09/18/19 17:49 71 165/73 09/18/19 17:30 71 29 75 09/18/19 17:06 68 30 165/73 (103) 93 09/18/19 16:40 70 09/18/19 16:00 63 30 141/61 (87) 94 09/18/19 16:00 Mechanical Ventilator 09/18/19 15:26 70 30 80 09/18/19 15:19 73 09/18/19 15:02 80 09/18/19 15:00 70 33 167/66 (99) 96 09/18/19 14:00 70 34 175/74 (107) 99 09/18/19 13:35 67 28 80 09/18/19 13:00 62 31 154/67 (96) 95 09/18/19 12:00 Mechanical Ventilator 09/18/19 12:00 98.0 62 31 144/62 (89) 95 09/18/19 11:19 90 09/18/19 11:19 67 09/18/19 11:14 179/74 09/18/19 11:14 67 179/74 09/18/19 11:05 98.5 67 31 179/74 (109) 96 09/18/19 10:48 71 36 80 09/18/19 10:00 71 33 174/68 (103) 92 09/18/19 09:30 66 0 80 Objective: General Appearance: no apparent distress, bedridden middle age chronically ill looking female on vent AC 450-12-100% PEEP 6 Lines, tubes and drains: peripheral HEENT: normocephalic, atraumatic, anicteric, status post trach - Shiley #7 cuffed XLT, secretions scant amount, yellow color, thick consistency Respiratory/Chest: no accessory muscle use, few scattered rhonchi bilaterally , tachypneic Cardiovascular/Chest: normal rate, regular rhythm - SR on tele Abdomen: normal bowel sounds, non tender, soft, G tube Genitourinary/Rectal: Norman Extremities: no edema Skin Exam: warm/dry, multiple tattoos all over the body Neurologic: abnormal gait, asleep, arousable Musculoskeletal: atrophy - BLE Micro: Microbiology Date/Time Source Procedure Growth Status 09/16/19 18:35 Blood Blood Culture - Preliminary NO GROWTH AFTER 48 HOURS Resulted 09/16/19 18:05 Blood Blood Culture - Preliminary NO GROWTH AFTER 48 HOURS Resulted 09/16/19 16:50 Sputum Gram Stain - Final Resulted 09/16/19 16:50 Sputum Culture - Preliminary Gram Negative Bacillus 1 Usual Respiratory Charisma Resulted 09/16/19 15:30 Nasopharynx SARS-CoV-2 RdRp Gene Assay - Final Complete Critical Care - Subjective ROS Limited/Unobtainable: Yes Interval Events: remains vent dependent tap not done 09/17, felt not enough fluid to safely remove episode of desaturation last night, FiO2 up to 100% ABG with hypoxia , tachypneic afebrile, mild leukocytosis creat down to 2.4 Condition: critical EKG Rhythm: Sinus Rhythm FI02: 100 Vent Support Breath Rate: 12 Vent Support Mode: AC Vent Tidal Volume: 450 Sputum Amount: Small PEEP: 6.0 PIP: 28 Fluids: D5NS at 50 Tube Feeding Amount: 40 I&O: Intake and Output 09/18/19 09/19/19 19:00 07:00 Intake Total 1354.16 ml 1157.5 ml Output Total 545 ml 500 ml Balance 809.16 ml 657.5 ml Intake Free Water 60 ml IV Total 1154.16 ml 627.5 ml Tube Feeding 120 ml 470 ml Other 80 ml Output Urine Total 545 ml 500 ml CXR: CXR 09/17-Improved aeration with decreased hazy bilateral opacities which may related to improved airspace disease and/or decreased layering pleural fluid. Bang Guardado MD 09/19/19 1511: Critical Care - Asmt/Plan Assessment/Plan: Patient seen and examined with CHIP FRIER. Agree with above A&P as it reflects our joint deliberations. Check CT chest better evaluate lung parenchyma. Time Spent (Minutes): 40 - cc Yara Castro NP Sep 19, 2019 09:46 Bang Guardado MD Sep 19, 2019 15:11
--- NOTE | 2019-09-19 10:01 | Nephrology Progress Note ---
Assessment/Plan Problem List: (1) JAVIER (acute kidney injury) (2) Renal failure (ARF), acute on chronic (3) Dehydration (4) Electrolyte imbalance (5) Anemia (6) Respiratory failure, acute and chronic (7) COPD with exacerbation Assessment Patient is presented with sepsis and pneumonia and UTI Patient has acute renal failure, possible underlying chronic kidney failure Severe anemia Electrolyte imbalances: Hyponatremia, hypo-kalemia Chronic respiratory failure, COPD exacerbation Plan September 18: Potassium supplement IV given. Hemoglobin stable. Patient remains full code. Continue per consultants. Previously: Potassium supplement IV Slow IV hydration Epogen subcu Adjust blood pressure medication IV fluid, rate adjusted Norman catheter, intake and output Monitor renal parameters Avoid nephrotoxic's Antibiotics Per orders 2D echocardiogram Kidney ultrasound Subjective ROS Limited/Unobtainable: Yes Objective Objective Last 24 Hour Vital Signs Date Time Temp Pulse Resp B/P (MAP) Pulse Ox O2 Delivery O2 Flow Rate FiO2 09/19/19 09:00 60 28 148/60 (89) 90 09/19/19 08:13 71 141/48 09/19/19 08:00 100 09/19/19 08:00 97.3 66 20 141/48 (79) 98 09/19/19 08:00 Mechanical Ventilator 09/19/19 07:28 78 38 75 09/19/19 07:00 79 37 164/67 (99) 91 09/19/19 06:00 82 37 161/64 (96) 88 09/19/19 05:33 170/59 09/19/19 05:33 73 170/59 09/19/19 05:18 68 24 75 09/19/19 05:00 71 34 170/59 (96) 93 09/19/19 04:00 Mechanical Ventilator 09/19/19 04:00 75 09/19/19 04:00 98.5 73 36 170/62 (98) 93 09/19/19 03:04 69 20 75 09/19/19 03:02 68 09/19/19 03:00 68 34 150/59 (89) 92 09/19/19 02:00 70 36 149/54 (85) 93 09/19/19 01:29 65 21 96 Mechanical Ventilator 75 62 22 75 09/19/19 01:00 73 37 157/63 (94) 94 09/19/19 00:39 177/62 09/19/19 00:39 76 177/62 09/19/19 00:00 98.1 69 36 177/62 (100) 89 09/19/19 00:00 75 09/19/19 00:00 Mechanical Ventilator 09/18/19 23:59 70 09/18/19 23:02 72 28 75 09/18/19 23:00 71 27 160/82 (108) 96 09/18/19 22:25 64 31 148/57 (87) 96 09/18/19 22:10 172/62 09/18/19 22:00 67 34 172/62 (98) 91 09/18/19 21:16 77 22 75 09/18/19 21:00 73 33 158/58 (91) 86 09/18/19 20:45 80 27 158/61 (93) 98 09/18/19 20:42 80 106/72 09/18/19 20:37 80 27 106/72 (83) 98 09/18/19 20:00 75 09/18/19 20:00 97.9 75 22 152/67 (95) 98 09/18/19 20:00 Mechanical Ventilator 09/18/19 19:58 75 24 98 Mechanical Ventilator 75 75 27 75 09/18/19 19:00 74 26 160/68 (98) 95 09/18/19 18:00 98.1 67 33 140/60 (86) 96 09/18/19 17:50 75 09/18/19 17:49 165/73 09/18/19 17:49 71 165/73 09/18/19 17:30 71 29 75 09/18/19 17:06 68 30 165/73 (103) 93 09/18/19 16:40 70 09/18/19 16:00 63 30 141/61 (87) 94 09/18/19 16:00 Mechanical Ventilator 09/18/19 15:26 70 30 80 09/18/19 15:19 73 09/18/19 15:02 80 09/18/19 15:00 70 33 167/66 (99) 96 09/18/19 14:00 70 34 175/74 (107) 99 09/18/19 13:35 67 28 80 09/18/19 13:00 62 31 154/67 (96) 95 09/18/19 12:00 Mechanical Ventilator 09/18/19 12:00 98.0 62 31 144/62 (89) 95 09/18/19 11:19 90 09/18/19 11:19 67 09/18/19 11:14 179/74 09/18/19 11:14 67 179/74 09/18/19 11:05 98.5 67 31 179/74 (109) 96 09/18/19 10:48 71 36 80 09/18/19 10:00 71 33 174/68 (103) 92 Intake and Output 09/18/19 09/19/19 19:00 07:00 Intake Total 1354.16 ml 1157.5 ml Output Total 545 ml 500 ml Balance 809.16 ml 657.5 ml Intake Free Water 60 ml IV Total 1154.16 ml 627.5 ml Tube Feeding 120 ml 470 ml Other 80 ml Output Urine Total 545 ml 500 ml Laboratory Tests 09/18/19 10:45: Arterial Blood pH 7.368, Arterial Blood Partial Pressure CO2 31.3L, Arterial Blood Partial Pressure O2 57.7L, Arterial Blood HCO3 17.6*L, Arterial Blood Oxygen Saturation 91.2L, Arterial Blood Base Excess -6.9L, Rojas Test Positive 09/19/19 03:55: White Blood Count 12.1H, Red Blood Count 3.06L, Hemoglobin 9.6L, Hematocrit 29.0L, Mean Corpuscular Volume 95, Mean Corpuscular Hemoglobin 31.5H, Mean Corpuscular Hemoglobin Concent 33.2, Red Cell Distribution Width 15.7H, Platelet Count 421, Mean Platelet Volume 4.6L, Neutrophils (%) (Auto) 68.4, Lymphocytes (%) (Auto) 19.9L, Monocytes (%) (Auto) 6.7, Eosinophils (%) (Auto) 4.3H, Basophils (%) (Auto) 0.8, Sodium Level 137, Potassium Level 3.2L, Chloride Level 102, Carbon Dioxide Level 20L, Anion Gap 15, Blood Urea Nitrogen 143H, Creatinine 2.4H, Estimat Glomerular Filtration Rate 21.7, Glucose Level 113H, Uric Acid 8.6H, Calcium Level 8.7, Phosphorus Level 3.7, Magnesium Level 3.6H, Total Bilirubin 0.3, Aspartate Amino Transf (AST/SGOT) 23, Alanine Aminotransferase (ALT/SGPT) 14, Alkaline Phosphatase 167H, C-Reactive Protein, Quantitative 9.9H, Pro-B-Type Natriuretic Peptide > 10432U, Total Protein 7.9, Albumin 2.7L, Globulin 5.2, Albumin/Globulin Ratio 0.5L 09/19/19 07:44: Arterial Blood pH 7.253L, Arterial Blood Partial Pressure CO2 38.0, Arterial Blood Partial Pressure O2 58.7L, Arterial Blood HCO3 16.4*L, Arterial Blood Oxygen Saturation 88.3*L, Arterial Blood Base Excess -10.0*L, Rojas Test Positive Height (Feet): 5 Height (Inches): 5.00 Weight (Pounds): 118 General Appearance: no apparent distress EENT: other - Patient is vented through tracheostomy Cardiovascular: normal rate Respiratory/Chest: decreased breath sounds Abdomen: distended Johnny Houston MD Sep 19, 2019 10:01
--- NOTE | 2019-09-19 10:41 | Diagnostic Imaging Report ---
Indication: Reason For Exam: SOB Technique: XRAY Chest 1v Comparison:09/18/2019 Findings: Increasing opacification in the right base is noted with haziness and blunting of the costophrenic angle. Air bronchograms are noted in the left lung base. There is blunting left costophrenic angle. Tracheostomy remains. Right perihilar infiltrate is present. No other change. Impression: Increasing right pleural effusion. Volume loss or infiltrate in the right perihilar region and right base. Left basilar airspace disease unchanged.
[2019-09-19] MEDS: Ipratropium 0.02% Inh Soln 2.5ml UD HHN PRN (11:45)
--- NOTE | 2019-09-19 12:04 | Infectious Diseases Prog Note ---
Assessment/Plan Assessment: Acute hypoxic resp failure- now on MV Fio2 80%> 90% 09/17- r.o PE Pneumonia- COVID19 neg x3 -09/18 rapid COVID PCR neg -09/17 Chest US: Trace right and small left pleural effusions. No safe window identified for bedside thoracentesis. Note that the majority of the left pleural effusion is subpulmonic. -09/16 CXR: Worsening of right lung infiltrates and right effusion. V. duplex: NO DVT D-dimer elevated -09/15 Rapid COVID pCR neg sp cx GNR -09/14 CXR: Bilateral airspace opacities, preferentially involving the right lung, consistent with multifocal infiltrate. Trace bilateral pleural effusions. No pneumothorax. rapid COVID PCR neg Gram positive bacteremia- real vs contaminant; does have hx of infected PPM- could be a possibility- ro endocarditis -09/14 Bcx 03/19 GPC clusters; 09/15 Bcx NTD 2d echo: no vegetations seen UTI -09/14 u/a wbc tnct, nit neg, leuk +3; ucx >100k MDR P. stuarti (S Ceftriaxone , Meropenem) Afebrile Leukocytosis, mild; improving JAVIER on CKD, improving -Renal US: Limited exam due to abdominal ascites and shadowing from bowel gas. CT recommended for more sensitive evaluation. Moderate right hydronephrosis. Increased renal parenchymal echogenicity suggesting intrinsic/ medical renal disease. Question indwelling left ureteral stent versus artifact. Bladder not visualized. 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 epi-11/2018, sp > 6weeks IV vancomycin -11/27 SP ABBIE: no evidence for vegetation on any of the valves -11/26/18 SP PPM removal: -OR findings:The fibrous capsule enclosing the generator was then opened and there was a [id number] amount of yellowish fluid drainage. The generator was then removed.Atrial and ventricular leads were detached. The necrotic tissue of the pocket was then removed and the pocket was flushed with an antibiotic solution. -Capsule, wound tissue and lead tip cx: Neg -2d echo: no vegetation seen -US chest: 4.6 x 3.4 x 0.9 cm hypoechoic/anechoic area overlying left chest pacemaker power pack. This could represent either a discrete fluid collection or a focal area of very edematous tissue. Infected fluid pocket also possible. -11/18 Bcx 3/4 S. epi; 11/20 Bcx neg; 11/24 Bcx Neg; 11/27 Bcx Neg Hx of PNA -11/2019 sp cx PsA (arnett S), ABC (I Ceftriaxone; otherwise negative) - -sp cx MRSA, ABC (I Ceftriaxone; otherwise S) Afib HTN dysphagia sp GT aortic dissection s/p repair 2017, s/p PPM Parkinson's Disease schizophrenia anxiety COPD chronic resp failure s/p trach hx of tracheal bleeding [place] resident ([facility]) Plan: -Empiric Meropenem #3 pending sp cx -empiric IV Vancomycin #4 for GPC bacteremia -09/16 SP Cefepime #3, Levaquin #3 -f/u cx -Monitor CBC/CMP, temperatures -f/u Bcx x2, sp cx -f/u 2d echo -COVID19 neg x2 -ICU/ trach/ peg care -aspiration precautions Thank you for this consultation. Will continue to follow along with you. Discussed with RN. Subjective Allergies: Coded Allergies: No Known Allergies (Unverified , 10/10/17) afebrile FIo2 down to 75% wbc improved repeat Bcx NTD Objective Last 24 Hour Vital Signs Date Time Temp Pulse Resp B/P (MAP) Pulse Ox O2 Delivery O2 Flow Rate FiO2 09/19/19 11:00 63 31 157/66 (96) 90 09/19/19 10:04 60 29 153/63 (93) 90 09/19/19 09:29 58 30 75 09/19/19 09:00 60 28 148/60 (89) 90 09/19/19 08:13 71 141/48 09/19/19 08:00 100 09/19/19 08:00 97.3 66 20 141/48 (79) 98 09/19/19 08:00 Mechanical Ventilator 09/19/19 08:00 60 09/19/19 07:28 78 38 75 09/19/19 07:00 79 37 164/67 (99) 91 09/19/19 06:00 82 37 161/64 (96) 88 09/19/19 05:33 170/59 09/19/19 05:33 73 170/59 09/19/19 05:18 68 24 75 09/19/19 05:00 71 34 170/59 (96) 93 09/19/19 04:00 Mechanical Ventilator 09/19/19 04:00 75 09/19/19 04:00 98.5 73 36 170/62 (98) 93 09/19/19 03:04 69 20 75 09/19/19 03:02 68 09/19/19 03:00 68 34 150/59 (89) 92 09/19/19 02:00 70 36 149/54 (85) 93 09/19/19 01:29 65 21 96 Mechanical Ventilator 75 62 22 75 09/19/19 01:00 73 37 157/63 (94) 94 09/19/19 00:39 177/62 09/19/19 00:39 76 177/62 09/19/19 00:00 98.1 69 36 177/62 (100) 89 09/19/19 00:00 75 09/19/19 00:00 Mechanical Ventilator 09/18/19 23:59 70 09/18/19 23:02 72 28 75 09/18/19 23:00 71 27 160/82 (108) 96 09/18/19 22:25 64 31 148/57 (87) 96 09/18/19 22:10 172/62 09/18/19 22:00 67 34 172/62 (98) 91 09/18/19 21:16 77 22 75 09/18/19 21:00 73 33 158/58 (91) 86 09/18/19 20:45 80 27 158/61 (93) 98 09/18/19 20:42 80 106/72 09/18/19 20:37 80 27 106/72 (83) 98 09/18/19 20:00 75 09/18/19 20:00 97.9 75 22 152/67 (95) 98 09/18/19 20:00 Mechanical Ventilator 09/18/19 19:58 75 24 98 Mechanical Ventilator 75 75 27 75 09/18/19 19:00 74 26 160/68 (98) 95 09/18/19 18:00 98.1 67 33 140/60 (86) 96 09/18/19 17:50 75 09/18/19 17:49 165/73 09/18/19 17:49 71 165/73 09/18/19 17:30 71 29 75 09/18/19 17:06 68 30 165/73 (103) 93 8/5/20 16:40 70 09/18/19 16:00 63 30 141/61 (87) 94 09/18/19 16:00 Mechanical Ventilator 09/18/19 15:26 70 30 80 09/18/19 15:19 73 09/18/19 15:02 80 09/18/19 15:00 70 33 167/66 (99) 96 09/18/19 14:00 70 34 175/74 (107) 99 09/18/19 13:35 67 28 80 09/18/19 13:00 62 31 154/67 (96) 95 09/18/19 12:00 Mechanical Ventilator 09/18/19 12:00 98.0 62 31 144/62 (89) 95 Height (Feet): 5 Height (Inches): 5.00 Weight (Pounds): 118 Cardiovascular: RSR Respiratory: decreased breath sounds Abdomen: soft, non-tender, present bowel sounds Extremities: no edema, no tenderness, no cyanosis Microbiology Date/Time Source Procedure Growth Status 09/16/19 18:35 Blood Blood Culture - Preliminary NO GROWTH AFTER 48 HOURS Resulted 09/16/19 18:05 Blood Blood Culture - Preliminary NO GROWTH AFTER 48 HOURS Resulted 09/19/19 10:00 Nasopharynx SARS-CoV-2 RdRp Gene Assay - Final Complete 09/16/19 16:50 Sputum Gram Stain - Final Resulted 09/16/19 16:50 Sputum Culture - Preliminary Gram Negative Bacillus 1 Usual Respiratory Charisma Resulted 09/16/19 15:30 Nasopharynx SARS-CoV-2 RdRp Gene Assay - Final Complete Laboratory Tests Test 09/19/19 03:55 09/19/19 07:44 09/19/19 10:25 White Blood Count 12.1 K/UL (4.8-10.8) H Red Blood Count 3.06 M/UL (4.20-5.40) L Hemoglobin 9.6 G/DL (12.0-16.0) L Hematocrit 29.0 % (37.0-47.0) L Mean Corpuscular Volume 95 FL (80-99) Mean Corpuscular Hemoglobin 31.5 PG (27.0-31.0) H Mean Corpuscular Hemoglobin Concent 33.2 G/DL (32.0-36.0) Red Cell Distribution Width 15.7 % (11.6-14.8) H Platelet Count 421 K/UL (150-450) Mean Platelet Volume 4.6 FL (6.5-10.1) L Neutrophils (%) (Auto) 68.4 % (45.0-75.0) Lymphocytes (%) (Auto) 19.9 % (20.0-45.0) L Monocytes (%) (Auto) 6.7 % (1.0-10.0) Eosinophils (%) (Auto) 4.3 % (0.0-3.0) H Basophils (%) (Auto) 0.8 % (0.0-2.0) Sodium Level 137 MMOL/L (136-145) Potassium Level 3.2 MMOL/L (3.5-5.1) L Chloride Level 102 MMOL/L (98-107) Carbon Dioxide Level 20 MMOL/L (21-32) L Anion Gap 15 mmol/L (5-15) Blood Urea Nitrogen 143 mg/dL (7-18) H Creatinine 2.4 MG/DL (0.55-1.30) H Estimat Glomerular Filtration Rate 21.7 mL/min (>60) Glucose Level 113 MG/DL (74-106) H Uric Acid 8.6 MG/DL (2.6-7.2) H Calcium Level 8.7 MG/DL (8.5-10.1) Phosphorus Level 3.7 MG/DL (2.5-4.9) Magnesium Level 3.6 MG/DL (1.8-2.4) H Total Bilirubin 0.3 MG/DL (0.2-1.0) Aspartate Amino Transf (AST/SGOT) 23 U/L (15-37) Alanine Aminotransferase (ALT/SGPT) 14 U/L (12-78) Alkaline Phosphatase 167 U/L (46-116) H C-Reactive Protein, Quantitative 9.9 mg/dL (0.00-0.90) H Pro-B-Type Natriuretic Peptide > 08975 pg/mL (0-125) H Total Protein 7.9 G/DL (6.4-8.2) Albumin 2.7 G/DL (3.4-5.0) L Globulin 5.2 g/dL Albumin/Globulin Ratio 0.5 (1.0-2.7) L Arterial Blood pH 7.253 (7.350-7.450) Arterial Blood Partial Pressure CO2 38.0 mmHg (35.0-45.0) Arterial Blood Partial Pressure O2 58.7 mmHg (75.0-100.0) L Arterial Blood HCO3 16.4 mmol/L (22.0-26.0) *L Arterial Blood Oxygen Saturation 88.3 % (95-100) *L Arterial Blood Base Excess -10.0 (-2-2) *L Rojas Test Positive Lactic Acid Level 0.30 mmol/L (0.4-2.0) L Current Medications Medications (Trade) Dose Ordered Sig/Penny Route PRN Reason Start Time Stop Time Status Last Admin Dose Admin Acetaminophen/ Hydrocodone Bitart (Macon 10/325) 1 tab Q6H PRN GT For Pain 09/17/19 13:30 09/22/19 07:29 09/19/19 01:38 Acetylcysteine (Mucomyst) 200 mg Q6HRT N 09/18/19 19:00 12/17/19 18:59 09/19/19 07:43 Albuterol/ Ipratropium (Albuterol/ Ipratropium) 3 ml Q6HRT N 09/17/19 13:00 09/20/19 12:59 09/19/19 07:43 Clonazepam (KlonoPIN) 0.5 mg Q12HR GT 09/17/19 21:00 09/22/19 08:59 09/19/19 08:12 Dextrose/Sodium Chloride 1,000 ml @ 50 mls/hr Q20H IV 09/18/19 09:00 10/17/19 08:59 09/19/19 05:33 Diltiazem HCl (Cardizem Tab) 60 mg EVERY 6 HOURS GT 09/17/19 12:00 10/15/19 11:59 09/19/19 05:33 Docusate Sodium (Colace) 100 mg TID GT 09/17/19 13:00 10/15/19 08:59 09/19/19 08:12 Epoetin Gelacio (Epoetin Gelacio-EPBX(NON ESRD)) 10,000 unit MON-MON-MON SUBQ 09/18/19 21:00 12/15/19 20:59 09/18/19 20:41 Haloperidol Lactate 5 mg/ Dextrose 56 ml @ 224 mls/hr EVERY 12 HOURS PRN IVPB Agitation 09/18/19 07:00 11/02/19 06:59 09/19/19 08:13 Heparin Sodium (Porcine) (Heparin 5000 units/ml) 5,000 units EVERY 12 HOURS SUBQ 09/17/19 21:00 10/30/19 08:59 09/19/19 08:17 Hydralazine HCl (Apresoline) 10 mg Q4H PRN IV BP over 160 systolic 09/17/19 11:15 12/14/19 11:14 09/18/19 22:10 Hydralazine HCl (Apresoline) 50 mg Q6HR GT 09/17/19 12:00 12/15/19 17:59 09/19/19 05:33 Ipratropium Simpson (Atrovent) 500 mcg Q4H PRN HHN Shortness of Breath 09/17/19 11:15 09/22/19 11:14 09/19/19 11:45 Lorazepam (Ativan 2mg/ml 1ml) 2 mg Q4H PRN IV For Anxiety 09/17/19 20:00 09/24/19 19:59 09/19/19 04:43 Meropenem 1 gm/ Sodium Chloride 55 ml @ 110 mls/hr Q12HR IVPB 09/17/19 13:00 09/22/19 12:59 09/19/19 08:12 Metoprolol Tartrate (Lopressor) 50 mg EVERY 12 HOURS GT 09/17/19 21:00 12/14/19 08:59 09/19/19 08:13 Olanzapine (ZyPREXA) 2.5 mg DAILY GT 09/18/19 09:00 10/30/19 08:59 09/19/19 08:12 Oxycodone HCl (Roxicodone) 5 mg Q4H PRN GT Severe Pain (Pain Scale 7-10) 09/17/19 11:15 09/22/19 11:14 09/19/19 08:14 Potassium Chloride 100 ml @ 100 mls/hr Q1HR IVPB 09/19/19 09:00 09/19/19 12:59 09/19/19 11:17 Sertraline HCl (Zoloft) 100 mg BEDTIME GT 09/17/19 21:00 10/15/19 20:59 09/18/19 20:42 Vancomycin HCl (Vanco pharmacy to dose) 1 ea DAILY PRN MISC Per rx protocol 09/18/19 09:00 10/16/19 13:44 Doreen Nino M.D. Sep 19, 2019 12:04
--- NOTE | 2019-09-19 12:46 | Hematology/Onc Progress Note ---
Assessment/Plan Assessment/Plan Covering [facility] Assessment and Recs # Leukocytosis, now with gram positive bacteremias well as pna noted --> historically --> PPM site (pocket) infection (redness and pain, bacteremia) and likely pocket abscess - no vegetation seen on ABBIE --> is s'p pm removal and also pocket infection is better --> per cards recs in re to tach/davis --> wbc 15-->19-->17-->15-->13->12-->13-->12 --> ABX cefepime/levaquin--> vanc/angelo --> ID recs are noted # Anemia of chronic disease due to underlying chronic medical issues, multifactorial --> Anemia workup has been reviewed, cw acd --> No evidence of hemolysis is noted, peripheral smear has been reviewed. --> Hgb goal >7. Transfuse prn. --> Epogen started --> Medications have been reviewed --> low threshold for gi evaluation in case has occult + --> hgb 7.1-->7.8-->8.9->9.2-->8.5-->9.7-->10-->8.8-->9.6 # Thrombocytois is likely reactive process, is s/p infection --> plt trend 610k-->706k --> p smear reviewed # Acute hypoxic respiratory failure s/p intubation 11/23- ?ARDS --> on vent/trach # Gram positive bacteremia- real bacteremia- 2ry to above and probable PNA --> per id care # JAVIER initially >2 --> now improved with D5w # Dysphagia s/p peg # Thoracic aortic dissection s/p repair early 2017 # Psychiatric history on ativan/haldol # [place] resident # Dvt ppx heparin sq The timing of this note does not necessarily reflect the time of the patient was seen. Greatly appreciate consultation. Subjective Constitutional: Denies: no symptoms, chills, fever, malaise, weakness, other HEENT: Denies: no symptoms, eye pain, blurred vision, tearing, double vision, ear pain, ear discharge, nose pain, nose congestion, throat pain, throat swelling, mouth pain, mouth swelling, other Cardiovascular: Denies: no symptoms, chest pain, edema, irregular heart rate, lightheadedness, palpitations, syncope, other Respiratory: Denies: no symptoms, cough, shortness of breath, SOB with excertion, SOB at rest, sputum, wheezing, other Gastrointestinal/Abdominal: Denies: no symptoms, abdomen distended, abdominal pain, black stools, tarry stools, blood in stool, constipated, diarrhea, difficulty swallowing, nausea, poor appetite, poor fluid intake, rectal bleeding , vomiting, other Genitourinary: Denies: no symptoms, burning, discharge, frequency, flank pain, hematuria, incontinence, pain, urgency, other Neurologic/Psychiatric: Denies: no symptoms, anxiety, depressed, emotional problems, headache, numbness, paresthesia, pre-existing deficit, seizure, tingling, tremors, weakness, other Endocrine: Denies: no symptoms, excessive sweating, flushing, intolerance to cold, intolerance to heat, increased hunger, increased thirst, increased urine, unexplained weight gain, unexplained weight loss, other Allergies: Coded Allergies: No Known Allergies (Unverified , 10/10/17) Subjective 09/16 on vent now, consulted in am pulm, on vent setting, labs noted, hep sq 09/17 meds noted, cbc noted, labs noted, no bleeding 09/18 is to undergo potential v/q scan given abg, labs noted, resless, on ativan, to get haldol today, roman rn Objective Objective Current Medications Medications (Trade) Dose Ordered Sig/Penny Route PRN Reason Start Time Stop Time Status Last Admin Dose Admin Acetaminophen/ Hydrocodone Bitart ([place] 10/325) 1 tab Q6H PRN GT For Pain 09/17/19 13:30 09/22/19 07:29 09/19/19 01:38 Acetylcysteine (Mucomyst) 200 mg Q6HRT [facility] 09/18/19 19:00 12/17/19 18:59 09/19/19 07:43 Albuterol/ Ipratropium (Albuterol/ Ipratropium) 3 ml Q6HRT [facility] 09/17/19 13:00 09/20/19 12:59 09/19/19 07:43 Clonazepam (KlonoPIN) 0.5 mg Q12HR GT 09/17/19 21:00 09/22/19 08:59 09/19/19 08:12 Dextrose/Sodium Chloride 1,000 ml @ 50 mls/hr Q20H IV 09/18/19 09:00 10/17/19 08:59 09/19/19 05:33 Diltiazem HCl (Cardizem Tab) 60 mg EVERY 6 HOURS GT 09/17/19 12:00 10/15/19 11:59 09/19/19 12:19 Docusate Sodium (Colace) 100 mg TID GT 09/17/19 13:00 10/15/19 08:59 09/19/19 12:19 Epoetin Gelacio (Epoetin Gelacio-EPBX(NON ESRD)) 10,000 unit MON-MON-MON SUBQ 09/18/19 21:00 12/15/19 20:59 09/18/19 20:41 Haloperidol Lactate 5 mg/ Dextrose 56 ml @ 224 mls/hr Q8H PRN IVPB Agitation 09/19/19 12:00 11/03/19 11:59 Heparin Sodium (Porcine) (Heparin 5000 units/ml) 5,000 units EVERY 12 HOURS SUBQ 09/17/19 21:00 10/30/19 08:59 09/19/19 08:17 Hydralazine HCl (Apresoline) 10 mg Q4H PRN IV BP over 160 systolic 09/17/19 11:15 12/14/19 11:14 09/18/19 22:10 Hydralazine HCl (Apresoline) 50 mg Q6HR GT 09/17/19 12:00 12/15/19 17:59 09/19/19 12:19 Ipratropium [place] (Atrovent) 500 mcg Q4H PRN HHN Shortness of Breath 09/17/19 11:15 09/22/19 11:14 09/19/19 11:45 Lorazepam (Ativan 2mg/ml 1ml) 2 mg Q4H PRN IV For Anxiety 09/17/19 20:00 09/24/19 19:59 09/19/19 04:43 Meropenem 1 gm/ Sodium Chloride 55 ml @ 110 mls/hr Q12HR IVPB 09/17/19 13:00 09/22/19 12:59 09/19/19 08:12 Metoprolol Tartrate (Lopressor) 50 mg EVERY 12 HOURS GT 09/17/19 21:00 12/14/19 08:59 09/19/19 08:13 Olanzapine (ZyPREXA) 2.5 mg DAILY GT 09/18/19 09:00 10/30/19 08:59 09/19/19 08:12 Oxycodone HCl (Roxicodone) 5 mg Q4H PRN GT Severe Pain (Pain Scale 7-10) 09/17/19 11:15 09/22/19 11:14 09/19/19 08:14 Potassium Chloride 100 ml @ 100 mls/hr Q1HR IVPB 09/19/19 09:00 09/19/19 12:59 09/19/19 12:19 Sertraline HCl (Zoloft) 100 mg BEDTIME GT 09/17/19 21:00 10/15/19 20:59 09/18/19 20:42 Vancomycin HCl ([facility] pharmacy to dose) 1 ea DAILY PRN MISC Per rx protocol 09/18/19 09:00 10/16/19 13:44 Last 24 Hour Vital Signs Date Time Temp Pulse Resp B/P (MAP) Pulse Ox O2 Delivery O2 Flow Rate FiO2 09/19/19 12:19 148/59 09/19/19 12:19 66 148/59 09/19/19 12:00 75 09/19/19 12:00 Mechanical Ventilator 09/19/19 12:00 97.5 64 21 148/59 (88) 100 09/19/19 12:00 100 09/19/19 11:06 64 22 91 Mechanical Ventilator 75 86 26 09/19/19 11:00 63 31 157/66 (96) 90 09/19/19 10:04 60 29 153/63 (93) 90 09/19/19 09:29 58 30 75 09/19/19 09:00 60 28 148/60 (89) 90 09/19/19 08:13 71 141/48 09/19/19 08:00 100 09/19/19 08:00 97.3 66 20 141/48 (79) 98 09/19/19 08:00 Mechanical Ventilator 09/19/19 08:00 60 09/19/19 07:28 78 38 95 Mechanical Ventilator 75 76 35 09/19/19 07:00 79 37 164/67 (99) 91 09/19/19 06:00 82 37 161/64 (96) 88 09/19/19 05:33 170/59 09/19/19 05:33 73 170/59 09/19/19 05:18 68 24 75 09/19/19 05:00 71 34 170/59 (96) 93 09/19/19 04:00 Mechanical Ventilator 09/19/19 04:00 75 09/19/19 04:00 98.5 73 36 170/62 (98) 93 09/19/19 03:04 69 20 75 09/19/19 03:02 68 09/19/19 03:00 68 34 150/59 (89) 92 09/19/19 02:00 70 36 149/54 (85) 93 09/19/19 01:29 65 21 96 Mechanical Ventilator 75 62 22 75 09/19/19 01:00 73 37 157/63 (94) 94 09/19/19 00:39 177/62 09/19/19 00:39 76 177/62 09/19/19 00:00 98.1 69 36 177/62 (100) 89 09/19/19 00:00 75 09/19/19 00:00 Mechanical Ventilator 09/18/19 23:59 70 09/18/19 23:02 72 28 75 09/18/19 23:00 71 27 160/82 (108) 96 09/18/19 22:25 64 31 148/57 (87) 96 09/18/19 22:10 172/62 09/18/19 22:00 67 34 172/62 (98) 91 09/18/19 21:16 77 22 75 09/18/19 21:00 73 33 158/58 (91) 86 09/18/19 20:45 80 27 158/61 (93) 98 09/18/19 20:42 80 106/72 09/18/19 20:37 80 27 106/72 (83) 98 09/18/19 20:00 75 09/18/19 20:00 97.9 75 22 152/67 (95) 98 09/18/19 20:00 Mechanical Ventilator 09/18/19 19:58 75 24 98 Mechanical Ventilator 75 75 27 75 09/18/19 19:00 74 26 160/68 (98) 95 09/18/19 18:00 98.1 67 33 140/60 (86) 96 09/18/19 17:50 75 09/18/19 17:49 165/73 09/18/19 17:49 71 165/73 09/18/19 17:30 71 29 75 09/18/19 17:06 68 30 165/73 (103) 93 09/18/19 16:40 70 09/18/19 16:00 63 30 141/61 (87) 94 09/18/19 16:00 Mechanical Ventilator 09/18/19 15:26 70 30 80 09/18/19 15:19 73 09/18/19 15:02 80 09/18/19 15:00 70 33 167/66 (99) 96 09/18/19 14:00 70 34 175/74 (107) 99 09/18/19 13:35 67 28 80 09/18/19 13:00 62 31 154/67 (96) 95 09/18/19 12:00 Mechanical Ventilator 09/18/19 12:00 98.0 62 31 144/62 (89) 95 09/18/19 11:19 90 09/18/19 11:19 67 09/18/19 11:14 179/74 09/18/19 11:14 67 179/74 09/18/19 11:05 98.5 67 31 179/74 (109) 96 09/18/19 10:48 71 36 80 09/18/19 10:00 71 33 174/68 (103) 92 09/18/19 09:30 66 0 80 09/18/19 09:00 69 20 145/66 (92) 99 09/18/19 08:36 74 161/52 09/18/19 08:00 74 33 161/52 (88) 94 09/18/19 08:00 Mechanical Ventilator 09/18/19 08:00 80 09/18/19 08:00 98.4 73 22 161/61 (94) 97 09/18/19 07:56 74 33 100 Mechanical Ventilator 80 74 34 80 09/18/19 07:43 75 09/18/19 07:00 74 33 161/52 (88) 94 09/18/19 06:00 82 34 192/63 (106) 96 09/18/19 06:00 175/58 09/18/19 06:00 88 175/58 09/18/19 05:00 78 35 175/58 (97) 94 09/18/19 04:43 75 34 168/52 (90) 94 09/18/19 04:24 77 35 80 09/18/19 04:03 85 09/18/19 04:00 98.0 76 34 185/152 (163) 95 09/18/19 04:00 Mechanical Ventilator 09/18/19 03:28 73 34 80 09/18/19 03:12 180/157 09/18/19 03:00 78 20 180/157 (165) 100 09/18/19 02:00 70 29 176/56 (96) 100 09/18/19 01:30 70 34 100 Mechanical Ventilator 80 79 43 80 09/18/19 01:00 68 34 159/53 (88) 99 09/18/19 00:00 80 09/18/19 00:00 Mechanical Ventilator 09/18/19 00:00 98.3 69 33 158/57 (90) 100 09/17/19 23:33 74 09/17/19 23:30 72 38 80 09/17/19 23:19 186/57 09/17/19 23:19 67 186/67 09/17/19 23:00 66 33 186/57 (100) 100 09/17/19 22:00 83 34 183/55 (97) 100 09/17/19 21:46 76 162/52 09/17/19 21:03 74 31 80 09/17/19 21:00 73 29 162/52 (88) 96 09/17/19 20:35 73 09/17/19 20:13 73 30 80 09/17/19 20:00 Mechanical Ventilator 09/17/19 20:00 80 09/17/19 20:00 Mechanical Ventilator 09/17/19 20:00 98.6 79 31 161/59 (93) 100 09/17/19 20:00 72 29 100 Mechanical Ventilator 80 68 27 100 09/17/19 19:00 78 25 167/50 (89) 98 09/17/19 18:00 73 29 157/51 (86) 100 09/17/19 17:20 177/67 09/17/19 17:20 73 177/67 09/17/19 17:15 71 20 80 09/17/19 17:00 70 16 177/67 (103) 100 09/17/19 16:00 98.3 73 20 159/50 (86) 100 09/17/19 16:00 Mechanical Ventilator 09/17/19 16:00 70 09/17/19 15:21 172/55 09/17/19 15:09 71 24 100 Mechanical Ventilator 80 68 13 80 09/17/19 15:08 100 Mechanical Ventilator 80 09/17/19 15:00 64 16 168/57 (94) 100 09/17/19 14:00 62 19 161/55 (90) 98 09/17/19 13:00 61 18 156/46 (82) 95 09/17/19 12:53 59 15 80 Intake and Output 09/18/19 09/19/19 19:00 07:00 Intake Total 1354.16 ml 1157.5 ml Output Total 545 ml 500 ml Balance 809.16 ml 657.5 ml Intake Free Water 60 ml IV Total 1154.16 ml 627.5 ml Tube Feeding 120 ml 470 ml Other 80 ml Output Urine Total 545 ml 500 ml Labs Test 09/17/19 07:24 09/17/19 07:30 09/17/19 12:59 09/17/19 14:23 Arterial Blood pH 7.353 (7.350-7.450) 7.350 (7.350-7.450) Arterial Blood Partial Pressure CO2 35.6 mmHg (35.0-45.0) 37.6 mmHg (35.0-45.0) Arterial Blood Partial Pressure O2 43.5 mmHg (75.0-100.0) 56.4 mmHg (75.0-100.0) Arterial Blood HCO3 19.3 mmol/L (22.0-26.0) 20.3 mmol/L (22.0-26.0) Arterial Blood Oxygen Saturation 78.2 % (95-100) 89.5 % (95-100) Arterial Blood Base Excess -5.6 (-2-2) -4.3 (-2-2) Rojas Test Positive Positive White Blood Count 12.6 K/UL (4.8-10.8) Red Blood Count 3.15 M/UL (4.20-5.40) Hemoglobin 10.0 G/DL (12.0-16.0) Hematocrit 29.3 % (37.0-47.0) Mean Corpuscular Volume 93 FL (80-99) Mean Corpuscular Hemoglobin 31.7 PG (27.0-31.0) Mean Corpuscular Hemoglobin Concent 34.1 G/DL (32.0-36.0) Red Cell Distribution Width 15.3 % (11.6-14.8) Platelet Count 454 K/UL (150-450) Mean Platelet Volume 4.4 FL (6.5-10.1) Neutrophils (%) (Auto) % (45.0-75.0) Lymphocytes (%) (Auto) % (20.0-45.0) Monocytes (%) (Auto) % (1.0-10.0) Eosinophils (%) (Auto) % (0.0-3.0) Basophils (%) (Auto) % (0.0-2.0) Differential Total Cells Counted 100 Neutrophils % (Manual) 80 % (45-75) Lymphocytes % (Manual) 16 % (20-45) Monocytes % (Manual) 3 % (1-10) Eosinophils % (Manual) 1 % (0-3) Basophils % (Manual) 0 % (0-2) Band Neutrophils 0 % (0-8) Platelet Estimate Adequate Platelet Morphology Normal Hypochromasia 1+ Anisocytosis 1+ Sodium Level 133 MMOL/L (136-145) Potassium Level 3.0 MMOL/L (3.5-5.1) Chloride Level 97 MMOL/L (98-107) Carbon Dioxide Level 22 MMOL/L (21-32) Anion Gap 15 mmol/L (5-15) Blood Urea Nitrogen 155 mg/dL (7-18) Creatinine 2.6 MG/DL (0.55-1.30) Estimat Glomerular Filtration Rate 19.7 mL/min (>60) Glucose Level 93 MG/DL (74-106) Uric Acid 8.0 MG/DL (2.6-7.2) Calcium Level 8.7 MG/DL (8.5-10.1) Phosphorus Level 3.4 MG/DL (2.5-4.9) Magnesium Level 3.7 MG/DL (1.8-2.4) Total Bilirubin 0.4 MG/DL (0.2-1.0) Aspartate Amino Transf (AST/SGOT) 23 U/L (15-37) Alanine Aminotransferase (ALT/SGPT) 17 U/L (12-78) Alkaline Phosphatase 168 U/L (46-116) C-Reactive Protein, Quantitative 6.1 mg/dL (0.00-0.90) Pro-B-Type Natriuretic Peptide > 85065 pg/mL (0-125) Total Protein 7.4 G/DL (6.4-8.2) Albumin 2.5 G/DL (3.4-5.0) Globulin 4.9 g/dL Albumin/Globulin Ratio 0.5 (1.0-2.7) Random Vancomycin Level 20.7 ug/mL Test 09/18/19 03:00 09/18/19 10:45 09/19/19 03:55 09/19/19 07:44 White Blood Count 13.5 K/UL (4.8-10.8) 12.1 K/UL (4.8-10.8) Red Blood Count 2.77 M/UL (4.20-5.40) 3.06 M/UL (4.20-5.40) Hemoglobin 8.8 G/DL (12.0-16.0) 9.6 G/DL (12.0-16.0) Hematocrit 26.1 % (37.0-47.0) 29.0 % (37.0-47.0) Mean Corpuscular Volume 94 FL (80-99) 95 FL (80-99) Mean Corpuscular Hemoglobin 31.8 PG (27.0-31.0) 31.5 PG (27.0-31.0) Mean Corpuscular Hemoglobin Concent 33.6 G/DL (32.0-36.0) 33.2 G/DL (32.0-36.0) Red Cell Distribution Width 15.0 % (11.6-14.8) 15.7 % (11.6-14.8) Platelet Count 419 K/UL (150-450) 421 K/UL (150-450) Mean Platelet Volume 4.5 FL (6.5-10.1) 4.6 FL (6.5-10.1) Neutrophils (%) (Auto) 77.6 % (45.0-75.0) 68.4 % (45.0-75.0) Lymphocytes (%) (Auto) 11.8 % (20.0-45.0) 19.9 % (20.0-45.0) Monocytes (%) (Auto) 6.7 % (1.0-10.0) 6.7 % (1.0-10.0) Eosinophils (%) (Auto) 3.3 % (0.0-3.0) 4.3 % (0.0-3.0) Basophils (%) (Auto) 0.7 % (0.0-2.0) 0.8 % (0.0-2.0) D-Dimer 2.86 mg/L FEU (0.00-0.49) Sodium Level 137 MMOL/L (136-145) 137 MMOL/L (136-145) Potassium Level 2.8 MMOL/L (3.5-5.1) 3.2 MMOL/L (3.5-5.1) Chloride Level 101 MMOL/L (98-107) 102 MMOL/L (98-107) Carbon Dioxide Level 20 MMOL/L (21-32) 20 MMOL/L (21-32) Anion Gap 16 mmol/L (5-15) 15 mmol/L (5-15) Blood Urea Nitrogen 152 mg/dL (7-18) 143 mg/dL (7-18) Creatinine 2.4 MG/DL (0.55-1.30) 2.4 MG/DL (0.55-1.30) Estimat Glomerular Filtration Rate 21.7 mL/min (>60) 21.7 mL/min (>60) Glucose Level 88 MG/DL (74-106) 113 MG/DL (74-106) Uric Acid 8.2 MG/DL (2.6-7.2) 8.6 MG/DL (2.6-7.2) Calcium Level 8.6 MG/DL (8.5-10.1) 8.7 MG/DL (8.5-10.1) Phosphorus Level 3.1 MG/DL (2.5-4.9) 3.7 MG/DL (2.5-4.9) Magnesium Level 3.7 MG/DL (1.8-2.4) 3.6 MG/DL (1.8-2.4) Total Bilirubin 0.3 MG/DL (0.2-1.0) 0.3 MG/DL (0.2-1.0) Aspartate Amino Transf (AST/SGOT) 21 U/L (15-37) 23 U/L (15-37) Alanine Aminotransferase (ALT/SGPT) 14 U/L (12-78) 14 U/L (12-78) Alkaline Phosphatase 164 U/L (46-116) 167 U/L (46-116) Total Creatine Kinase 43 U/L (26-308) C-Reactive Protein, Quantitative 8.1 mg/dL (0.00-0.90) 9.9 mg/dL (0.00-0.90) Total Protein 7.4 G/DL (6.4-8.2) 7.9 G/DL (6.4-8.2) Albumin 2.4 G/DL (3.4-5.0) 2.7 G/DL (3.4-5.0) Globulin 5.0 g/dL 5.2 g/dL Albumin/Globulin Ratio 0.5 (1.0-2.7) 0.5 (1.0-2.7) Arterial Blood pH 7.368 (7.350-7.450) 7.253 (7.350-7.450) Arterial Blood Partial Pressure CO2 31.3 mmHg (35.0-45.0) 38.0 mmHg (35.0-45.0) Arterial Blood Partial Pressure O2 57.7 mmHg (75.0-100.0) 58.7 mmHg (75.0-100.0) Arterial Blood HCO3 17.6 mmol/L (22.0-26.0) 16.4 mmol/L (22.0-26.0) Arterial Blood Oxygen Saturation 91.2 % (95-100) 88.3 % (95-100) Arterial Blood Base Excess -6.9 (-2-2) -10.0 (-2-2) Rojas Test Positive Positive Pro-B-Type Natriuretic Peptide > 29551 pg/mL (0-125) Test 09/19/19 10:25 Lactic Acid Level 0.30 mmol/L (0.4-2.0) Micro Microbiology Date/Time Source Procedure Growth Status 09/19/19 10:00 Nasopharynx SARS-CoV-2 RdRp Gene Assay - Final Complete Height (Feet): 5 Height (Inches): 5.00 Weight (Pounds): 118 Objective Physical Exam: Vitals: reviewed General: NAD HEENT: nc, at Neck: supple ++tracn/vent Chest: clear breath sounds bilaterally Cardiovascular: RRR, no s3, s4 Abdomen: soft, nontender, nd +gtube Extremities: no cce, normal range of motion Neuro: alert Evan Muhammad MD Sep 19, 2019 12:46
--- NOTE | 2019-09-19 16:07 | Diagnostic Imaging Report ---
. Indication: Reason For Exam: SCREEN Technique: CT scan of the chest was performed without intravenous contrast material per specific request. Continuous helical scanning was obtained with displayed 5 mm sections in axial and coronal planes. Dose: Total Dose Length Product - DLP [address] Dose Index - CTDIvol(s) 5.70 mGy. Automated exposure control was utilized for dose reduction. Comparison: 10/10/2017 CT of the abdomen Findings: Lack of contrast material severely limits evaluation in this patient. There is a tracheostomy. The patient has very little inherent fat. Calcification is noted in the aorta. Soft tissue density is noted in the superior mediastinum. It is very difficult to evaluate mediastinum for adenopathy due to the lack of contrast. There are bilateral pleural effusions. Volume loss is noted in the left lower lobe versus consolidation. There is likewise volume loss or consolidation in the right lower lobe. Patchy groundglass densities are noted in the upper lungs. The heart appears slightly enlarged. There is considerable ascites. A gastrostomy tube is in place. The left kidney is atrophic. It is incompletely scanned. There is hydronephrosis of a left renal stent. Impression: Markedly suboptimal examination due to lack of IV contrast material. Bilateral pleural effusions, right greater than left, with bilateral lower lobe consolidation or volume loss. Groundglass densities in the upper lobes bilaterally. This is not specific. Tracheostomy. Increased superior mediastinal density. Stability of adenopathy cannot be excluded. Atherosclerotic change. Gastrostomy. Ascites. Left renal stent with left hydronephrosis and renal atrophy. The CT scanner at [facility] is accredited by the [employer] and the scans are performed using protocols designed to limit radiation exposure to as low as reasonably achievable to attain images of sufficient resolution adequate for diagnostic evaluation.
--- NOTE | 2019-09-19 17:55 | Surgery Progress Note ---
Surgery Progress Note Subjective Additional Comments ill appearing no n/v on support weaning Objective Last 24 Hour Vital Signs Date Time Temp Pulse Resp B/P (MAP) Pulse Ox O2 Delivery O2 Flow Rate FiO2 09/19/19 17:10 62 16 100 09/19/19 17:00 97.5 62 18 150/54 (86) 99 09/19/19 16:00 100 09/19/19 16:00 Mechanical Ventilator 09/19/19 16:00 62 09/19/19 16:00 62 16 156/57 (90) 96 09/19/19 15:12 58 26 100 09/19/19 15:00 61 24 178/48 (91) 94 09/19/19 14:00 61 20 136/52 (80) 94 09/19/19 13:29 63 34 90 Mechanical Ventilator 100 60 32 09/19/19 13:06 71 40 143/68 (93) 91 09/19/19 12:19 148/59 09/19/19 12:19 66 148/59 09/19/19 12:00 75 09/19/19 12:00 Mechanical Ventilator 09/19/19 12:00 97.5 64 21 148/59 (88) 100 09/19/19 12:00 100 09/19/19 11:06 64 22 91 Mechanical Ventilator 100 86 26 09/19/19 11:00 63 31 157/66 (96) 90 09/19/19 10:04 60 29 153/63 (93) 90 09/19/19 09:29 58 30 100 09/19/19 09:00 60 28 148/60 (89) 90 09/19/19 08:13 71 141/48 09/19/19 08:00 100 09/19/19 08:00 97.3 66 20 141/48 (79) 98 09/19/19 08:00 Mechanical Ventilator 09/19/19 08:00 60 09/19/19 07:28 78 38 95 Mechanical Ventilator 100 76 35 09/19/19 07:00 79 37 164/67 (99) 91 09/19/19 06:00 82 37 161/64 (96) 88 09/19/19 05:33 170/59 09/19/19 05:33 73 170/59 09/19/19 05:18 68 24 75 09/19/19 05:00 71 34 170/59 (96) 93 09/19/19 04:00 Mechanical Ventilator 09/19/19 04:00 75 09/19/19 04:00 98.5 73 36 170/62 (98) 93 09/19/19 03:04 69 20 75 09/19/19 03:02 68 09/19/19 03:00 68 34 150/59 (89) 92 09/19/19 02:00 70 36 149/54 (85) 93 09/19/19 01:29 65 21 96 Mechanical Ventilator 75 62 22 75 09/19/19 01:00 73 37 157/63 (94) 94 09/19/19 00:39 177/62 09/19/19 00:39 76 177/62 09/19/19 00:00 98.1 69 36 177/62 (100) 89 09/19/19 00:00 75 09/19/19 00:00 Mechanical Ventilator 09/18/19 23:59 70 09/18/19 23:02 72 28 75 09/18/19 23:00 71 27 160/82 (108) 96 09/18/19 22:25 64 31 148/57 (87) 96 09/18/19 22:10 172/62 09/18/19 22:00 67 34 172/62 (98) 91 09/18/19 21:16 77 22 75 09/18/19 21:00 73 33 158/58 (91) 86 09/18/19 20:45 80 27 158/61 (93) 98 09/18/19 20:42 80 106/72 09/18/19 20:37 80 27 106/72 (83) 98 09/18/19 20:00 75 09/18/19 20:00 97.9 75 22 152/67 (95) 98 09/18/19 20:00 Mechanical Ventilator 09/18/19 19:58 75 24 98 Mechanical Ventilator 75 75 27 75 09/18/19 19:00 74 26 160/68 (98) 95 09/18/19 18:00 98.1 67 33 140/60 (86) 96 I&O Intake and Output 09/18/19 09/19/19 19:00 07:00 Intake Total 1354.16 ml 1157.5 ml Output Total 545 ml 500 ml Balance 809.16 ml 657.5 ml Intake Free Water 60 ml IV Total 1154.16 ml 627.5 ml Tube Feeding 120 ml 470 ml Other 80 ml Output Urine Total 545 ml 500 ml Dressing: saturated Cardiovascular: RSR Respiratory: decreased breath sounds Abdomen: soft, non-tender, present bowel sounds Extremities: no edema, no tenderness, no cyanosis Laboratory Tests Test 09/19/19 03:55 09/19/19 07:44 09/19/19 10:25 White Blood Count 12.1 K/UL (4.8-10.8) H Red Blood Count 3.06 M/UL (4.20-5.40) L Hemoglobin 9.6 G/DL (12.0-16.0) L Hematocrit 29.0 % (37.0-47.0) L Mean Corpuscular Volume 95 FL (80-99) Mean Corpuscular Hemoglobin 31.5 PG (27.0-31.0) H Mean Corpuscular Hemoglobin Concent 33.2 G/DL (32.0-36.0) Red Cell Distribution Width 15.7 % (11.6-14.8) H Platelet Count 421 K/UL (150-450) Mean Platelet Volume 4.6 FL (6.5-10.1) L Neutrophils (%) (Auto) 68.4 % (45.0-75.0) Lymphocytes (%) (Auto) 19.9 % (20.0-45.0) L Monocytes (%) (Auto) 6.7 % (1.0-10.0) Eosinophils (%) (Auto) 4.3 % (0.0-3.0) H Basophils (%) (Auto) 0.8 % (0.0-2.0) Sodium Level 137 MMOL/L (136-145) Potassium Level 3.2 MMOL/L (3.5-5.1) L Chloride Level 102 MMOL/L (98-107) Carbon Dioxide Level 20 MMOL/L (21-32) L Anion Gap 15 mmol/L (5-15) Blood Urea Nitrogen 143 mg/dL (7-18) H Creatinine 2.4 MG/DL (0.55-1.30) H Estimat Glomerular Filtration Rate 21.7 mL/min (>60) Glucose Level 113 MG/DL (74-106) H Uric Acid 8.6 MG/DL (2.6-7.2) H Calcium Level 8.7 MG/DL (8.5-10.1) Phosphorus Level 3.7 MG/DL (2.5-4.9) Magnesium Level 3.6 MG/DL (1.8-2.4) H Total Bilirubin 0.3 MG/DL (0.2-1.0) Aspartate Amino Transf (AST/SGOT) 23 U/L (15-37) Alanine Aminotransferase (ALT/SGPT) 14 U/L (12-78) Alkaline Phosphatase 167 U/L (46-116) H C-Reactive Protein, Quantitative 9.9 mg/dL (0.00-0.90) H Pro-B-Type Natriuretic Peptide > 51701 pg/mL (0-125) H Total Protein 7.9 G/DL (6.4-8.2) Albumin 2.7 G/DL (3.4-5.0) L Globulin 5.2 g/dL Albumin/Globulin Ratio 0.5 (1.0-2.7) L Arterial Blood pH 7.253 (7.350-7.450) Arterial Blood Partial Pressure CO2 38.0 mmHg (35.0-45.0) Arterial Blood Partial Pressure O2 58.7 mmHg (75.0-100.0) L Arterial Blood HCO3 16.4 mmol/L (22.0-26.0) *L Arterial Blood Oxygen Saturation 88.3 % (95-100) *L Arterial Blood Base Excess -10.0 (-2-2) *L Rojas Test Positive Lactic Acid Level 0.30 mmol/L (0.4-2.0) L Plan Problems: (1) Anemia (2) Proteinuria (3) UTI (urinary tract infection) (4) ARF (acute renal failure) (5) ACS (acute coronary syndrome) (6) Respiratory failure, acute and chronic (7) HCAP (healthcare-associated pneumonia) (8) Abrasion of lip, initial encounter (9) COPD with exacerbation (10) Hypokalemia (11) Sepsis Assessment & Plan: Leukocytosis, anemia, abnormal labs. Renal insufficiency potentially dehydrated Abnormal LFTs alk phos elevated Urine noted significant bacteria likely UTI etiology Wound stable still requiring local care IV antibiotics per infectious disease Discussed with recruitment consultant Dr. Berkowitz air mattress turn q2h nutritional tf will follow with recs thank you (12) Chronic respiratory failure (13) Ascites (14) Bacteremia (15) Hypernatremia (16) Pleural effusion (17) Pacemaker (18) Aortic dissection, thoracic (19) Tracheostomy in place Assessment & Plan: trach stable no bleeding currently likely tongue etiology of mild oozing currently hemostatic without trauma (20) Feeding by G-tube Assessment & Plan: okay to resume tube feeds via g tube patent and functional dressings okay DAILY ESTIMATED NEEDS: Needs based on Pulmonary, wound 49kg 30-35 kcals/kg 4762-7324 total kcals 1.25-2 g protein/kg 61-98 g total protein Fluid per MD NUTRITION DIAGNOSIS: * Swallowing difficulty R/T dysphagia, respiratory status as evidenced by vent dep via T-collar, GT Dep. (CURRENT TF: Nepro @45ml/hr x 24 hrs) ENTERAL NUTRITION RECOMMENDATIONS: Nepro @ 40ml/hr x 24 hrs to provide 960ml, 1728kcal, 78g prot, 698ml free water * Rec LOWER current rate to 40ml/hr for 24 hrs run. 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 Base of wound is granular with bone exposure at base of sacrococcygeal.(L)10.5cm x (W06.5cm x (D) 2.8cm , undermining 11-3 by 3.6cm @12 o'clock. small amt serosanguineous exudate noted . [place] epithelial along edges bordered by darker skin tone without erythema. Resolving Pressure injury L ischium. Base of wound is 95% pink epithelial ,5% noni at center base of wound. No exudate noted. Both heels are boggy with non-Blanching erythema. Tx.plan: Cleanse Sacral wound with Saline. Loosely pack with Hydrogel impregnated Kerlix. Apply Moisture Barrier Periwound. Cover with Optifoam drsg Daily and prn. Apply Moisture Barrier paste to L Ischium. Cover with Optifoam drsg. Changee very 3 days and prn. Apply Cavilon Skin Barrier to both heels. Cover each heel with Optifoam drsgs. Change every 7 days and prn. Reposition at least every 2hours or as tolerated. Off-load heels with pillow. APM/JENNIFER Mattress overlay. Lane Saavedra Sep 19, 2019 17:55
[2019-09-19] MEDS: Sertraline 100mg tab GT SCH (20:42)
[2019-09-20] VITALS (24 sets, daily range): BP systolic 134–178; BP diastolic 48–70
[2019-09-20] MEDS: Albuterol/Ipratropium 3ml neb HHN SCH ×4 (00:07→18:51)
[2019-09-20] MEDS: Acetylcysteine 20% Soln 4ml HHN SCH ×4 (00:08→18:55)
[2019-09-20] MEDS: HydrALAZINE 50mg tab GT SCH ×5 (00:25→23:37)
[2019-09-20] MEDS: D5NS 1,000 ML IV SCH (00:26)
[2019-09-20] MEDS: dilTIAZem HCl 60mg tab GT SCH ×5 (00:26→23:37)
[2019-09-20] MEDS: LORazepam Inj 2mg/ml 1ml IV PRN ×4 (02:42→22:29)
[2019-09-20 04:43] LABS: BASOPHILS % (AUTO) 0.5 % (0.0-2.0); EOSINOPHILS % (AUTO) 4.5 % (0.0-3.0); HEMATOCRIT 26.8 % (37.0-47.0); HEMOGLOBIN 8.7 G/DL (12.0-16.0); LYMPHOCYTES % (AUTO) 10.1 % (20.0-45.0); MEAN CORPUSCULAR VOLUME 99 FL (80-99); MONOCYTES % (AUTO) 5.1 % (1.0-10.0); NEUTROPHILS % (AUTO) 79.8 % (45.0-75.0); PLATELET COUNT 354 K/UL (150-450); RED BLOOD COUNT 2.71 M/UL (4.20-5.40); RED CELL DISTRIBUTION WIDTH 16.2 % (11.6-14.8)
[2019-09-20 05:12] LABS: ALANINE AMINOTRANSFERASE 16 U/L (12-78); ALBUMIN 2.3 G/DL (3.4-5.0); ALBUMIN/GLOBULIN RATIO 0.5 (1.0-2.7); ALKALINE PHOSPHATASE 149 U/L (46-116); ANION GAP 18 mmol/L (5-15); ASPARTATE AMINO TRANSFERASE 20 U/L (15-37); BILIRUBIN,TOTAL 0.3 MG/DL (0.2-1.0); BLOOD UREA NITROGEN 146 mg/dL (7-18); CALCIUM 8.2 MG/DL (8.5-10.1); CARBON DIOXIDE 17 MMOL/L (21-32); CHLORIDE 106 MMOL/L (98-107); CREATININE 2.5 MG/DL (0.55-1.30); POTASSIUM 3.3 MMOL/L (3.5-5.1); SODIUM 141 MMOL/L (136-145)
[2019-09-20 05:17] LABS: PHOSPHORUS 3.6 MG/DL (2.5-4.9)
[2019-09-20] MEDS: clonazePAM 0.5mg tab GT SCH ×2 (08:26→19:54)
[2019-09-20] MEDS: Metoprolol Tartrate 50mg tab GT SCH ×2 (08:26→19:54)
[2019-09-20] MEDS: OLANZapine 2.5mg tab GT SCH (08:26)
[2019-09-20] MEDS: Docusate 100mg/10ml Liq GT SCH ×3 (08:26→17:34)
[2019-09-20] MEDS: Meropenem 1 GM in NS 55 ML IVPB SCH ×2 (08:27→20:39)
[2019-09-20] MEDS: Heparin 5000 units/ml inj SUBQ SCH ×2 (08:28→19:55)
[2019-09-20] MEDS ORDERED: Vancomycin 500mg/D5W 110ml IVPB ONE ×2 (09:00)
--- NOTE | 2019-09-20 09:36 | Nephrology Progress Note ---
Assessment/Plan Problem List: (1) JAVIER (acute kidney injury) (2) Renal failure (ARF), acute on chronic (3) Dehydration (4) Electrolyte imbalance (5) Anemia (6) Respiratory failure, acute and chronic (7) COPD with exacerbation Assessment Patient is presented with sepsis and pneumonia and UTI Patient has acute renal failure, possible underlying chronic kidney failure Severe anemia Electrolyte imbalances: Hyponatremia, hypo-kalemia Chronic respiratory failure, COPD exacerbation Plan September 19: DC IV fluid. Zaroxolyn via GT tube. Potassium supplement. Attempt to diurese. Chest CT as bilateral pleural effusion. If diuresis unsuccessful, will consider dialysis and ultrafiltration. September 18: Potassium supplement IV given. Hemoglobin stable. Patient remains full code. Continue per consultants. Previously: Potassium supplement IV Slow IV hydration Epogen subcu Adjust blood pressure medication IV fluid, rate adjusted Norman catheter, intake and output Monitor renal parameters Avoid nephrotoxic's Antibiotics Per orders 2D echocardiogram Kidney ultrasound Subjective ROS Limited/Unobtainable: Yes Objective Objective Last 24 Hour Vital Signs Date Time Temp Pulse Resp B/P (MAP) Pulse Ox O2 Delivery O2 Flow Rate FiO2 09/20/19 09:00 62 26 157/55 (89) 99 09/20/19 08:26 66 149/59 09/20/19 08:00 97.8 66 22 149/51 (83) 98 09/20/19 08:00 100 09/20/19 07:30 74 32 98 Mechanical Ventilator 100 77 32 100 09/20/19 07:00 80 32 176/60 (98) 94 09/20/19 06:00 68 22 165/64 (97) 98 09/20/19 05:50 154/58 09/20/19 05:50 68 154/58 09/20/19 05:00 68 21 154/58 (90) 98 09/20/19 04:52 74 24 100 09/20/19 04:00 77 09/20/19 04:00 100 09/20/19 04:00 Mechanical Ventilator 09/20/19 04:00 97.9 77 36 178/70 (106) 96 09/20/19 03:00 74 38 163/67 (99) 94 09/20/19 02:56 69 32 100 09/20/19 02:00 59 18 140/57 (84) 97 09/20/19 01:00 63 20 134/50 (78) 97 09/20/19 00:26 68 175/63 09/20/19 00:25 175/63 09/20/19 00:08 76 36 98 Mechanical Ventilator 100 76 35 100 09/20/19 00:00 97.4 76 39 175/63 (100) 93 09/20/19 00:00 Mechanical Ventilator 09/20/19 00:00 75 09/19/19 23:00 74 39 179/64 (102) 93 09/19/19 22:43 69 30 100 09/19/19 22:00 59 23 150/55 (86) 97 09/19/19 21:00 72 31 161/64 (96) 99 09/19/19 20:43 73 144/51 09/19/19 20:34 67 17 100 09/19/19 20:00 61 09/19/19 20:00 100 09/19/19 20:00 Mechanical Ventilator 09/19/19 20:00 97.6 63 20 144/51 (82) 99 09/19/19 19:36 63 20 97 Mechanical Ventilator 100 62 18 100 09/19/19 19:00 71 21 149/52 (84) 95 09/19/19 18:09 154/57 09/19/19 18:09 68 154/57 09/19/19 18:00 64 16 154/57 (89) 98 09/19/19 17:10 62 16 100 09/19/19 17:00 97.5 62 18 150/54 (86) 99 09/19/19 16:00 100 09/19/19 16:00 Mechanical Ventilator 09/19/19 16:00 62 09/19/19 16:00 62 16 156/57 (90) 96 09/19/19 15:12 58 26 100 09/19/19 15:00 61 24 178/48 (91) 94 09/19/19 14:00 61 20 136/52 (80) 94 09/19/19 13:29 63 34 90 Mechanical Ventilator 100 60 32 09/19/19 13:06 71 40 143/68 (93) 91 09/19/19 12:19 148/59 09/19/19 12:19 66 148/59 09/19/19 12:00 75 09/19/19 12:00 Mechanical Ventilator 09/19/19 12:00 97.5 64 21 148/59 (88) 100 09/19/19 12:00 100 09/19/19 11:06 64 22 91 Mechanical Ventilator 100 86 26 09/19/19 11:00 63 31 157/66 (96) 90 09/19/19 10:04 60 29 153/63 (93) 90 Intake and Output 09/19/19 09/20/19 19:00 07:00 Intake Total 1441 ml 1169.333 ml Output Total 325 ml 320 ml Balance 1116 ml 849.333 ml IV Total 761 ml 589.333 ml Tube Feeding 480 ml 480 ml Other 200 ml 100 ml Output Urine Total 325 ml 320 ml Laboratory Tests 09/19/19 10:25: Lactic Acid Level 0.30L 09/20/19 03:28: White Blood Count 13.0H, Red Blood Count 2.71L, Hemoglobin 8.7L, Hematocrit 26.8L, Mean Corpuscular Volume 99, Mean Corpuscular Hemoglobin 31.9H, Mean Corpuscular Hemoglobin Concent 32.3, Red Cell Distribution Width 16.2H, Platelet Count 354, Mean Platelet Volume 4.9L, Neutrophils (%) (Auto) 79.8H, Lymphocytes (%) (Auto) 10.1L, Monocytes (%) (Auto) 5.1, Eosinophils (%) (Auto) 4.5H, Basophils (%) (Auto) 0.5, Sodium Level 141, Potassium Level 3.3L, Chloride Level 106, Carbon Dioxide Level 17L, Anion Gap 18H, Blood Urea Nitrogen 146H, Creatinine 2.5H, Estimat Glomerular Filtration Rate 20.6, Glucose Level 121H, Calcium Level 8.2L, Phosphorus Level 3.6, Magnesium Level 3.4H, Total Bilirubin 0.3, Aspartate Amino Transf (AST/SGOT) 20, Alanine Aminotransferase (ALT/SGPT) 16, Alkaline Phosphatase 149H, C-Reactive Protein, Quantitative 5.9H, Pro-B-Type Natriuretic Peptide > 30125L, Total Protein 7.3, Albumin 2.3L, Globulin 5.0, Albumin/Globulin Ratio 0.5L, Random Vancomycin Level 17.6 09/20/19 07:53: Arterial Blood pH 7.305L, Arterial Blood Partial Pressure CO2 31.6L, Arterial Blood Partial Pressure O2 69.5L, Arterial Blood HCO3 15.4*L, Arterial Blood Oxygen Saturation 92.6L, Arterial Blood Base Excess -10.0*L, Rojas Test Positive Height (Feet): 5 Height (Inches): 5.00 Weight (Pounds): 138 General Appearance: no apparent distress, lethargic Neck: other - Trach to vent Cardiovascular: normal rate Respiratory/Chest: decreased breath sounds Abdomen: distended Johnny Houston MD Sep 20, 2019 09:36
[2019-09-20] MEDS: Haloperidol Lactate 5 MG in D5W 55 ML IVPB PRN ×2 (10:33→20:08)
--- NOTE | 2019-09-20 10:35 | Pulmonolgy Critical Care Note ---
CastroYara luna MANAGER PROVIDER RELATIONS 09/20/19 1035: Critical Care - Asmt/Plan Assessment/Plan: ASSESSMENT Acute on chronic respiratory failure, now on vent Tracheostomy status, s/p change to cuffed trach Sepsis Pulmonary edema pleural effusion Pneumonia UTI CHF ? cardiorenal COPD Acute kidney injury and chronic kidney disease Hypertension Atrial fibrillation Moderate pulm HTN Moderate AR Dysphagia , feeding by G-tube Electrolyte abnormalities Anemia Toxic metabolic encephalopathy likely due to sepsis and ARF HTN PAF PLAN OF CARE ICU on vent AC trach changed 8 pm from uncuffed to cuffed Shiley#7 XLT CXR 09/16 -> -Worsening of right lung infiltrates and right effusion. tap on 09/17 not done, felt by IR not safe due to small amounts of pleural effusion ABG this am on high FiO2 80% noted; unable to down titrated FiO2 CXR 09/17 ->Improved aeration with decreased hazy bilateral opacities which may related toimproved airspace disease and/or decreased layering pleural fluid. however desaturated over night ABG 09/18 on 100% FiO2 with hypoxia stat VQ scan order, not done check lactate level-> 0.3 repeat rapid COVID 19 09/18 -> NGT PEEP incerased to 7 ABG this am 09/[address] chest w/out contrast: - Bilateral pleural effusions, right greater than left, with bilateral lower lobe consolidation or volume loss. -Ground-glass densities in the upper lobes bilaterally. This is not specific. -Tracheostomy. -Increased superior mediastinal density. Stability of adenopathy cannot be excluded. -Atherosclerotic change. -Gastrostomy. -Ascites. -Left renal stent with left hydronephrosis and renal atrophy. fup with CXR and ABG trach care ,pulmonary toilet prior rapid COVID 19 NGT x2 abx as per ID-Meropenem, Vanco SCX 8/3 + Proteus UCX 8/2 + Providencia BCX 8/2 Staph epidermidis, BCX 8/3 NGTD aspiration precautions venous Duplex BLE -> NGT DVT prophylaxis monitor volumes was on gentle IVF-> now dc monitor renal parameters, lytes, correct lytes as needed , avoid nephrotoxics hypo Na resolved - per nephro management K replaced this am as per nephro s/ p Zaroxyline 09/19 s/p prior diuretic-Lasix ECHO with pEF , moderate pulm HTN and moderate AR BP management with current regimen of BB, Cardizem and Hydralazine, remains in SR monitor HH with goal to keep Hgb >7, heme on board on EPO supportive care pain management wound care bowel regimen thank you for a consult Critical Care - Objective Last 24 Hour Vital Signs Date Time Temp Pulse Resp B/P (MAP) Pulse Ox O2 Delivery O2 Flow Rate FiO2 09/20/19 09:05 62 22 100 09/20/19 09:00 62 26 157/55 (89) 99 09/20/19 08:26 66 149/59 09/20/19 08:00 97.8 66 22 149/51 (83) 98 09/20/19 08:00 100 09/20/19 08:00 Mechanical Ventilator 09/20/19 07:30 74 32 98 Mechanical Ventilator 100 77 32 100 09/20/19 07:00 80 32 176/60 (98) 94 09/20/19 06:00 68 22 165/64 (97) 98 09/20/19 05:50 154/58 09/20/19 05:50 68 154/58 09/20/19 05:00 68 21 154/58 (90) 98 09/20/19 04:52 74 24 100 09/20/19 04:00 77 09/20/19 04:00 100 09/20/19 04:00 Mechanical Ventilator 09/20/19 04:00 97.9 77 36 178/70 (106) 96 09/20/19 03:00 74 38 163/67 (99) 94 09/20/19 02:56 69 32 100 09/20/19 02:00 59 18 140/57 (84) 97 09/20/19 01:00 63 20 134/50 (78) 97 09/20/19 00:26 68 175/63 09/20/19 00:25 175/63 09/20/19 00:08 76 36 98 Mechanical Ventilator 100 76 35 100 09/20/19 00:00 97.4 76 39 175/63 (100) 93 09/20/19 00:00 Mechanical Ventilator 09/20/19 00:00 75 09/19/19 23:00 74 39 179/64 (102) 93 09/19/19 22:43 69 30 100 09/19/19 22:00 59 23 150/55 (86) 97 09/19/19 21:00 72 31 161/64 (96) 99 09/19/19 20:43 73 144/51 09/19/19 20:34 67 17 100 09/19/19 20:00 61 09/19/19 20:00 100 09/19/19 20:00 Mechanical Ventilator 09/19/19 20:00 97.6 63 20 144/51 (82) 99 09/19/19 19:36 63 20 97 Mechanical Ventilator 100 62 18 100 09/19/19 19:00 71 21 149/52 (84) 95 09/19/19 18:09 154/57 09/19/19 18:09 68 154/57 09/19/19 18:00 64 16 154/57 (89) 98 09/19/19 17:10 62 16 100 09/19/19 17:00 97.5 62 18 150/54 (86) 99 09/19/19 16:00 100 09/19/19 16:00 Mechanical Ventilator 09/19/19 16:00 62 09/19/19 16:00 62 16 156/57 (90) 96 09/19/19 15:12 58 26 100 09/19/19 15:00 61 24 178/48 (91) 94 09/19/19 14:00 61 20 136/52 (80) 94 09/19/19 13:29 63 34 90 Mechanical Ventilator 100 60 32 09/19/19 13:06 71 40 143/68 (93) 91 09/19/19 12:19 148/59 09/19/19 12:19 66 148/59 09/19/19 12:00 75 09/19/19 12:00 Mechanical Ventilator 09/19/19 12:00 97.5 64 21 148/59 (88) 100 09/19/19 12:00 100 09/19/19 11:06 64 22 91 Mechanical Ventilator 100 86 26 09/19/19 11:00 63 31 157/66 (96) 90 Objective: General Appearance: no apparent distress, bedridden middle age chronically ill looking female on vent AC 450-12-100% PEEP 7 Lines, tubes and drains: peripheral HEENT: normocephalic, atraumatic, anicteric, status post trach - Shiley #7 cuffed XLT, secretions scant amount, yellow color, thick consistency Respiratory/Chest: no accessory muscle use, few scattered rhonchi bilaterally , tachypneic Cardiovascular/Chest: normal rate, regular rhythm - SR on tele Abdomen: normal bowel sounds, non tender, soft, G tube Genitourinary/Rectal: Norman Extremities: no edema Skin Exam: warm/dry, multiple tattoos all over the body Neurologic: abnormal gait, asleep, arousable Musculoskeletal: atrophy - BLE Micro: Microbiology Date/Time Source Procedure Growth Status 09/19/19 10:00 Nasopharynx SARS-CoV-2 RdRp Gene Assay - Final Complete Critical Care - Subjective ROS Limited/Unobtainable: Yes Interval Events: leukocytosis, no fevers remains on 100% FiO2m PEEP incerased yesterday to7, ABG this am no hypoxia VQ scan pending CT chest s contrast done creat 2.5 this am FI02: 100 Vent Support Breath Rate: 12 Vent Support Mode: AC Vent Tidal Volume: 450 Sputum Amount: Small PEEP: 7.0 PIP: 25 Tube Feeding Amount: 40 I&O: Intake and Output 09/19/19 09/20/19 19:00 07:00 Intake Total 1441 ml 1169.333 ml Output Total 325 ml 320 ml Balance 1116 ml 849.333 ml IV Total 761 ml 589.333 ml Tube Feeding 480 ml 480 ml Other 200 ml 100 ml Output Urine Total 325 ml 320 ml CXR: CXR 09/18 Increasing right pleural effusion. Volume loss or infiltrate in the right perihilar region and right base. Left basilar airspace disease unchanged. Juve Martinez MD 09/20/19 1248: Critical Care - Asmt/Plan Assessment/Plan: Patient seen and examined with MANAGER PROVIDER RELATIONS. Agree with above A&P as it reflects our joint deliberations. CT chest noted VQ pending NAEO o/w Vent adjusted, 100/7, gas exchange adequate Time Spent (Minutes): 40 Yara Castro NP Sep 20, 2019 10:35 Juve Martinez MD Sep 20, 2019 12:48
--- NOTE | 2019-09-20 10:37 | Diagnostic Imaging Report ---
Procedure: XRAY Chest 1v Reason for study: Reason For Exam: SOB Comparison films: 09/19/2019. FINDINGS: Tracheostomy remains in place. Bilateral alveolar infiltrates are unchanged. Cardiomegaly and effusions unchanged. The bony thorax appear unremarkable. IMPRESSION: NO SIGNIFICANT CHANGE COMPARED TO PREVIOUS EXAM.
--- NOTE | 2019-09-20 11:26 | Infectious Diseases Prog Note ---
Assessment/Plan Assessment: Acute hypoxic resp failure- now on MV Fio2 80%> 90% 09/17> 100% 09/19- r.o PE Pneumonia- COVID19 neg x3 -09/18 rapid COVID PCR neg CT chest: Markedly suboptimal examination due to lack of IV contrast material. Bilateral pleural effusions, right greater than left, with bilateral lower lobe consolidation or volume loss. Groundglass densities in the upper lobes bilaterally. This is not specific. Tracheostomy. Increased superior mediastinal density. Stability of adenopathy cannot be excluded. Atherosclerotic change. Gastrostomy. Ascites. Left renal stent with left hydronephrosis and renal atrophy. -09/17 Chest US: Trace right and small left pleural effusions. No safe window identified for bedside thoracentesis. Note that the majority of the left pleural effusion is subpulmonic. -09/16 CXR: Worsening of right lung infiltrates and right effusion. V. duplex: NO DVT D-dimer elevated -09/15 Rapid COVID pCR neg sp cx ESBL P. mirablis -09/14 CXR: Bilateral airspace opacities, preferentially involving the right lung, consistent with multifocal infiltrate. Trace bilateral pleural effusions. No pneumothorax. rapid COVID PCR neg Gram positive bacteremia- real vs contaminant; does have hx of infected PPM- could be a possibility- ro endocarditis -09/14 Bcx 03/19 S. epidermis; 09/15 Bcx NTD 2d echo: no vegetations seen UTI -09/14 u/a wbc tnct, nit neg, leuk +3; ucx >100k MDR P. stuarti (S Ceftriaxone , Meropenem) Afebrile Leukocytosis, mild; fluctuates bt 12-13 JAVIER on CKD, improved -Renal US: Limited exam due to abdominal ascites and shadowing from bowel gas. CT recommended for more sensitive evaluation. Moderate right hydronephrosis. Increased renal parenchymal echogenicity suggesting intrinsic/ medical renal disease. Question indwelling left ureteral stent versus artifact. Bladder not visualized. 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 epi-11/2018, sp > 6weeks IV vancomycin -11/27 SP ABBIE: no evidence for vegetation on any of the valves -11/26/18 SP PPM removal: -OR findings:The fibrous capsule enclosing the generator was then opened and there was a [id number] amount of yellowish fluid drainage. The generator was then removed.Atrial and ventricular leads were detached. The necrotic tissue of the pocket was then removed and the pocket was flushed with an antibiotic solution. -Capsule, wound tissue and lead tip cx: Neg -2d echo: no vegetation seen -US chest: 4.6 x 3.4 x 0.9 cm hypoechoic/anechoic area overlying left chest pacemaker power pack. This could represent either a discrete fluid collection or a focal area of very edematous tissue. Infected fluid pocket also possible. -11/18 Bcx 3/4 S. epi; 11/20 Bcx neg; 11/24 Bcx Neg; 11/27 Bcx Neg Hx of PNA -11/2019 sp cx PsA (arnett S), ABC (I Ceftriaxone; otherwise negative) - -sp cx MRSA, ABC (I Ceftriaxone; otherwise S) Afib HTN dysphagia sp GT aortic dissection s/p repair 2017, s/p PPM Parkinson's Disease schizophrenia anxiety COPD chronic resp failure s/p trach hx of tracheal bleeding CT resident ([facility]) Plan: -Empiric Meropenem #4 pending sp cx -empiric IV Vancomycin #5 for GPC bacteremia -09/16 SP Cefepime #3, Levaquin #3 -f/u cx -Monitor CBC/CMP, temperatures -f/u Bcx x2 -COVID19 neg x3 -ICU/ trach/ peg care -aspiration precautions Thank you for this consultation. Will continue to follow along with you. Discussed with RN. Subjective Allergies: Coded Allergies: No Known Allergies (Unverified , 10/10/17) afebrile FIo2 back tto 100% wbc bt 12-13 repeat Bcx NTD Objective Last 24 Hour Vital Signs Date Time Temp Pulse Resp B/P (MAP) Pulse Ox O2 Delivery O2 Flow Rate FiO2 09/20/19 11:14 65 170/57 09/20/19 11:13 170/57 09/20/19 09:05 62 22 100 09/20/19 09:00 62 26 157/55 (89) 99 09/20/19 08:26 66 149/59 09/20/19 08:00 97.8 66 22 149/51 (83) 98 09/20/19 08:00 100 09/20/19 08:00 Mechanical Ventilator 09/20/19 07:30 74 32 98 Mechanical Ventilator 100 77 32 100 09/20/19 07:00 80 32 176/60 (98) 94 09/20/19 06:00 68 22 165/64 (97) 98 09/20/19 05:50 154/58 09/20/19 05:50 68 154/58 09/20/19 05:00 68 21 154/58 (90) 98 09/20/19 04:52 74 24 100 09/20/19 04:00 77 09/20/19 04:00 100 09/20/19 04:00 Mechanical Ventilator 09/20/19 04:00 97.9 77 36 178/70 (106) 96 09/20/19 03:00 74 38 163/67 (99) 94 09/20/19 02:56 69 32 100 09/20/19 02:00 59 18 140/57 (84) 97 09/20/19 01:00 63 20 134/50 (78) 97 09/20/19 00:26 68 175/63 09/20/19 00:25 175/63 09/20/19 00:08 76 36 98 Mechanical Ventilator 100 76 35 100 09/20/19 00:00 97.4 76 39 175/63 (100) 93 09/20/19 00:00 Mechanical Ventilator 09/20/19 00:00 75 09/19/19 23:00 74 39 179/64 (102) 93 09/19/19 22:43 69 30 100 09/19/19 22:00 59 23 150/55 (86) 97 09/19/19 21:00 72 31 161/64 (96) 99 09/19/19 20:43 73 144/51 09/19/19 20:34 67 17 100 09/19/19 20:00 61 09/19/19 20:00 100 09/19/19 20:00 Mechanical Ventilator 09/19/19 20:00 97.6 63 20 144/51 (82) 99 09/19/19 19:36 63 20 97 Mechanical Ventilator 100 62 18 100 09/19/19 19:00 71 21 149/52 (84) 95 09/19/19 18:09 154/57 09/19/19 18:09 68 154/57 09/19/19 18:00 64 16 154/57 (89) 98 09/19/19 17:10 62 16 100 09/19/19 17:00 97.5 62 18 150/54 (86) 99 09/19/19 16:00 100 09/19/19 16:00 Mechanical Ventilator 09/19/19 16:00 62 09/19/19 16:00 62 16 156/57 (90) 96 09/19/19 15:12 58 26 100 09/19/19 15:00 61 24 178/48 (91) 94 09/19/19 14:00 61 20 136/52 (80) 94 09/19/19 13:29 63 34 90 Mechanical Ventilator 100 60 32 09/19/19 13:06 71 40 143/68 (93) 91 09/19/19 12:19 148/59 09/19/19 12:19 66 148/59 09/19/19 12:00 75 09/19/19 12:00 Mechanical Ventilator 09/19/19 12:00 97.5 64 21 148/59 (88) 100 09/19/19 12:00 100 Height (Feet): 5 Height (Inches): 5.00 Weight (Pounds): 138 Cardiovascular: RSR Respiratory: decreased breath sounds Abdomen: soft, non-tender, present bowel sounds Extremities: no edema, no tenderness, no cyanosis Microbiology Date/Time Source Procedure Growth Status 09/19/19 10:00 Nasopharynx SARS-CoV-2 RdRp Gene Assay - Final Complete Laboratory Tests Test 09/20/19 03:28 09/20/19 07:53 White Blood Count 13.0 K/UL (4.8-10.8) H Red Blood Count 2.71 M/UL (4.20-5.40) L Hemoglobin 8.7 G/DL (12.0-16.0) L Hematocrit 26.8 % (37.0-47.0) L Mean Corpuscular Volume 99 FL (80-99) Mean Corpuscular Hemoglobin 31.9 PG (27.0-31.0) H Mean Corpuscular Hemoglobin Concent 32.3 G/DL (32.0-36.0) Red Cell Distribution Width 16.2 % (11.6-14.8) H Platelet Count 354 K/UL (150-450) Mean Platelet Volume 4.9 FL (6.5-10.1) L Neutrophils (%) (Auto) 79.8 % (45.0-75.0) H Lymphocytes (%) (Auto) 10.1 % (20.0-45.0) L Monocytes (%) (Auto) 5.1 % (1.0-10.0) Eosinophils (%) (Auto) 4.5 % (0.0-3.0) H Basophils (%) (Auto) 0.5 % (0.0-2.0) Sodium Level 141 MMOL/L (136-145) Potassium Level 3.3 MMOL/L (3.5-5.1) L Chloride Level 106 MMOL/L (98-107) Carbon Dioxide Level 17 MMOL/L (21-32) L Anion Gap 18 mmol/L (5-15) H Blood Urea Nitrogen 146 mg/dL (7-18) H Creatinine 2.5 MG/DL (0.55-1.30) H Estimat Glomerular Filtration Rate 20.6 mL/min (>60) Glucose Level 121 MG/DL (74-106) H Calcium Level 8.2 MG/DL (8.5-10.1) L Phosphorus Level 3.6 MG/DL (2.5-4.9) Magnesium Level 3.4 MG/DL (1.8-2.4) H Total Bilirubin 0.3 MG/DL (0.2-1.0) Aspartate Amino Transf (AST/SGOT) 20 U/L (15-37) Alanine Aminotransferase (ALT/SGPT) 16 U/L (12-78) Alkaline Phosphatase 149 U/L (46-116) H C-Reactive Protein, Quantitative 5.9 mg/dL (0.00-0.90) H Pro-B-Type Natriuretic Peptide > 49949 pg/mL (0-125) H Total Protein 7.3 G/DL (6.4-8.2) Albumin 2.3 G/DL (3.4-5.0) L Globulin 5.0 g/dL Albumin/Globulin Ratio 0.5 (1.0-2.7) L Random Vancomycin Level 17.6 ug/mL Arterial Blood pH 7.305 (7.350-7.450) Arterial Blood Partial Pressure CO2 31.6 mmHg (35.0-45.0) L Arterial Blood Partial Pressure O2 69.5 mmHg (75.0-100.0) L Arterial Blood HCO3 15.4 mmol/L (22.0-26.0) *L Arterial Blood Oxygen Saturation 92.6 % (95-100) L Arterial Blood Base Excess -10.0 (-2-2) *L Rojas Test Positive Current Medications Medications (Trade) Dose Ordered Sig/Penny Route PRN Reason Start Time Stop Time Status Last Admin Dose Admin Acetaminophen/ Hydrocodone Bitart ([place] 10/325) 1 tab Q6H PRN GT For Pain 09/17/19 13:30 09/22/19 07:29 09/19/19 23:58 Acetylcysteine (Mucomyst) 200 mg Q6HRT HHN 09/18/19 19:00 12/17/19 18:59 09/20/19 07:25 Albuterol/ Ipratropium (Albuterol/ Ipratropium) 3 ml Q6HRT HHN 09/20/19 13:00 09/23/19 12:59 Clonazepam (KlonoPIN) 0.5 mg Q12HR GT 09/17/19 21:00 09/22/19 08:59 09/20/19 08:26 Diltiazem HCl (Cardizem Tab) 60 mg EVERY 6 HOURS GT 09/17/19 12:00 10/15/19 11:59 09/20/19 11:14 Docusate Sodium (Colace) 100 mg TID GT 09/17/19 13:00 10/15/19 08:59 09/20/19 08:26 Epoetin Gelacio (Epoetin Gelacio-EPBX(NON ESRD)) 10,000 unit MON-MON-MON SUBQ 09/18/19 21:00 12/15/19 20:59 09/18/19 20:41 Haloperidol Lactate 5 mg/ Dextrose 56 ml @ 224 mls/hr Q8H PRN IVPB Agitation 09/19/19 12:00 11/03/19 11:59 09/20/19 10:33 Heparin Sodium (Porcine) (Heparin 5000 units/ml) 5,000 units EVERY 12 HOURS SUBQ 09/17/19 21:00 10/30/19 08:59 09/19/19 20:43 Hydralazine HCl (Apresoline) 10 mg Q4H PRN IV BP over 160 systolic 09/17/19 11:15 12/14/19 11:14 09/18/19 22:10 Hydralazine HCl (Apresoline) 50 mg Q6HR GT 09/17/19 12:00 12/15/19 17:59 09/20/19 11:13 Ipratropium [place] (Atrovent) 500 mcg Q4H PRN HHN Shortness of Breath 09/17/19 11:15 09/22/19 11:14 09/19/19 11:45 Lorazepam (Ativan 2mg/ml 1ml) 2 mg Q4H PRN IV For Anxiety 09/17/19 20:00 09/24/19 19:59 09/20/19 02:42 Meropenem 1 gm/ Sodium Chloride 55 ml @ 110 mls/hr Q12HR IVPB 09/17/19 13:00 09/22/19 12:59 09/20/19 08:27 Metoprolol Tartrate (Lopressor) 50 mg EVERY 12 HOURS GT 09/17/19 21:00 12/14/19 08:59 09/20/19 08:26 Olanzapine (ZyPREXA) 2.5 mg DAILY GT 09/18/19 09:00 10/30/19 08:59 09/20/19 08:26 Potassium Chloride 100 ml @ 100 mls/hr Q1HR IVPB 09/20/19 09:00 09/20/19 11:59 09/20/19 11:13 Potassium Chloride (K-Dur) 40 meq TWICE A DAY GT 09/20/19 18:00 12/19/19 17:59 Sertraline HCl (Zoloft) 100 mg BEDTIME GT 09/17/19 21:00 10/15/19 20:59 09/19/19 20:42 Vancomycin HCl (Vanco pharmacy to dose) 1 ea DAILY PRN MISC Per rx protocol 09/18/19 09:00 10/16/19 13:44 Doreen Nino M.D. Sep 20, 2019 11:26
--- NOTE | 2019-09-20 12:12 | Hematology/Onc Progress Note ---
Assessment/Plan Assessment/Plan Covering [facility] Assessment and Recs # Leukocytosis, now with gram positive bacteremias well as pna noted --> historically --> PPM site (pocket) infection (redness and pain, bacteremia) and likely pocket abscess - no vegetation seen on ABBIE --> is s'p pm removal and also pocket infection is better --> per cards recs in re to tach/davis --> wbc 15-->19-->17-->15-->13->12-->13-->12>13 --> ABX cefepime/levaquin--> vanc/angelo --> ID recs are noted # Anemia of chronic disease due to underlying chronic medical issues, multifactorial --> Anemia workup has been reviewed, cw acd --> No evidence of hemolysis is noted, peripheral smear has been reviewed. --> Hgb goal >7. Transfuse prn. --> Epogen started --> Medications have been reviewed --> low threshold for gi evaluation in case has occult + --> hgb 7.1-->7.8-->8.9->9.2-->8.5-->9.7-->10-->8.8-->9.6-->8.7 # Thrombocytois is likely reactive process, is s/p infection --> plt trend 610k-->706k --> p smear reviewed # Acute hypoxic respiratory failure s/p intubation 11/23- ?ARDS --> on vent/trach # Gram positive bacteremia- real bacteremia- 2ry to above and probable PNA --> per id care # JAVIER initially >2 --> now improved with D5w # Dysphagia s/p peg # Thoracic aortic dissection s/p repair early 2018 # Psychiatric history on ativan/haldol # [place] resident # Dvt ppx heparin sq The timing of this note does not necessarily reflect the time of the patient was seen. Greatly appreciate consultation. Subjective Cardiovascular: Denies: no symptoms, chest pain, edema, irregular heart rate, lightheadedness, palpitations, syncope, other Respiratory: Denies: no symptoms, cough, shortness of breath, SOB with excertion, SOB at rest, sputum, wheezing, other Gastrointestinal/Abdominal: Denies: no symptoms, abdomen distended, abdominal pain, black stools, tarry stools, blood in stool, constipated, diarrhea, difficulty swallowing, nausea, poor appetite, poor fluid intake, rectal bleeding , vomiting, other Genitourinary: Denies: no symptoms, burning, discharge, frequency, flank pain, hematuria, incontinence, pain, urgency, other Neurologic/Psychiatric: Denies: no symptoms, anxiety, depressed, emotional problems, headache, numbness, paresthesia, pre-existing deficit, seizure, tingling, tremors, weakness, other Endocrine: Denies: no symptoms, excessive sweating, flushing, intolerance to cold, intolerance to heat, increased hunger, increased thirst, increased urine, unexplained weight gain, unexplained weight loss, other Allergies: Coded Allergies: No Known Allergies (Unverified , 10/10/17) All Systems: reviewed and negative except above Subjective 09/16 on vent now, consulted in am pulm, on vent setting, labs noted, hep sq 09/17 meds noted, cbc noted, labs noted, no bleeding 09/18 is to undergo potential v/q scan given abg, labs noted, resless, on ativan, to get haldol today, dw rn 09/19 remains agitated, covering, with sacral wound seeping, likely cause of anemia, dw rn Objective Objective Current Medications Medications (Trade) Dose Ordered Sig/Penny Route PRN Reason Start Time Stop Time Status Last Admin Dose Admin Acetaminophen/ Hydrocodone Bitart ([place] 10/325) 1 tab Q6H PRN GT For Pain 09/17/19 13:30 09/22/19 07:29 09/19/19 23:58 Acetylcysteine (Mucomyst) 200 mg Q6HRT N 09/18/19 19:00 12/17/19 18:59 09/20/19 07:25 Albuterol/ Ipratropium (Albuterol/ Ipratropium) 3 ml Q6HRT N 09/20/19 13:00 09/23/19 12:59 Clonazepam (KlonoPIN) 0.5 mg Q12HR GT 09/17/19 21:00 09/22/19 08:59 09/20/19 08:26 Diltiazem HCl (Cardizem Tab) 60 mg EVERY 6 HOURS GT 09/17/19 12:00 10/15/19 11:59 09/20/19 11:14 Docusate Sodium (Colace) 100 mg TID GT 09/17/19 13:00 10/15/19 08:59 09/20/19 08:26 Epoetin Gelacio (Epoetin Gelacio-EPBX(NON ESRD)) 10,000 unit MON-MON-MON SUBQ 09/18/19 21:00 12/15/19 20:59 09/18/19 20:41 Haloperidol Lactate 5 mg/ Dextrose 56 ml @ 224 mls/hr Q8H PRN IVPB Agitation 09/19/19 12:00 11/03/19 11:59 09/20/19 10:33 Heparin Sodium (Porcine) (Heparin 5000 units/ml) 5,000 units EVERY 12 HOURS SUBQ 09/17/19 21:00 10/30/19 08:59 09/19/19 20:43 Hydralazine HCl (Apresoline) 10 mg Q4H PRN IV BP over 160 systolic 09/17/19 11:15 12/14/19 11:14 09/18/19 22:10 Hydralazine HCl (Apresoline) 50 mg Q6HR GT 09/17/19 12:00 12/15/19 17:59 09/20/19 11:13 Ipratropium [place] (Atrovent) 500 mcg Q4H PRN HHN Shortness of Breath 09/17/19 11:15 09/22/19 11:14 09/19/19 11:45 Lorazepam (Ativan 2mg/ml 1ml) 2 mg Q4H PRN IV For Anxiety 09/17/19 20:00 09/24/19 19:59 09/20/19 02:42 Meropenem 1 gm/ Sodium Chloride 55 ml @ 110 mls/hr Q12HR IVPB 09/17/19 13:00 09/22/19 12:59 09/20/19 08:27 Metoprolol Tartrate (Lopressor) 50 mg EVERY 12 HOURS GT 09/17/19 21:00 12/14/19 08:59 09/20/19 08:26 Olanzapine (ZyPREXA) 2.5 mg DAILY GT 09/18/19 09:00 10/30/19 08:59 09/20/19 08:26 Potassium Chloride (K-Dur) 40 meq TWICE A DAY GT 09/20/19 18:00 12/19/19 17:59 Sertraline HCl (Zoloft) 100 mg BEDTIME GT 09/17/19 21:00 10/15/19 20:59 09/19/19 20:42 Vancomycin HCl (Vanco pharmacy to dose) 1 ea DAILY PRN MISC Per rx protocol 09/18/19 09:00 10/16/19 13:44 Last 24 Hour Vital Signs Date Time Temp Pulse Resp B/P (MAP) Pulse Ox O2 Delivery O2 Flow Rate FiO2 09/20/19 11:14 65 170/57 09/20/19 11:13 170/57 09/20/19 10:50 68 35 100 09/20/19 09:05 62 22 100 09/20/19 09:00 62 26 157/55 (89) 99 09/20/19 08:26 66 149/59 09/20/19 08:00 97.8 66 22 149/51 (83) 98 09/20/19 08:00 100 09/20/19 08:00 Mechanical Ventilator 09/20/19 07:30 74 32 98 Mechanical Ventilator 100 77 32 100 09/20/19 07:00 80 32 176/60 (98) 94 09/20/19 06:00 68 22 165/64 (97) 98 09/20/19 05:50 154/58 09/20/19 05:50 68 154/58 09/20/19 05:00 68 21 154/58 (90) 98 09/20/19 04:52 74 24 100 09/20/19 04:00 77 09/20/19 04:00 100 09/20/19 04:00 Mechanical Ventilator 09/20/19 04:00 97.9 77 36 178/70 (106) 96 09/20/19 03:00 74 38 163/67 (99) 94 09/20/19 02:56 69 32 100 09/20/19 02:00 59 18 140/57 (84) 97 09/20/19 01:00 63 20 134/50 (78) 97 09/20/19 00:26 68 175/63 09/20/19 00:25 175/63 09/20/19 00:08 76 36 98 Mechanical Ventilator 100 76 35 100 09/20/19 00:00 97.4 76 39 175/63 (100) 93 09/20/19 00:00 Mechanical Ventilator 09/20/19 00:00 75 09/19/19 23:00 74 39 179/64 (102) 93 09/19/19 22:43 69 30 100 09/19/19 22:00 59 23 150/55 (86) 97 09/19/19 21:00 72 31 161/64 (96) 99 09/19/19 20:43 73 144/51 09/19/19 20:34 67 17 100 09/19/19 20:00 61 09/19/19 20:00 100 09/19/19 20:00 Mechanical Ventilator 09/19/19 20:00 97.6 63 20 144/51 (82) 99 09/19/19 19:36 63 20 97 Mechanical Ventilator 100 62 18 100 09/19/19 19:00 71 21 149/52 (84) 95 09/19/19 18:09 154/57 09/19/19 18:09 68 154/57 09/19/19 18:00 64 16 154/57 (89) 98 09/19/19 17:10 62 16 100 09/19/19 17:00 97.5 62 18 150/54 (86) 99 09/19/19 16:00 100 09/19/19 16:00 Mechanical Ventilator 09/19/19 16:00 62 09/19/19 16:00 62 16 156/57 (90) 96 09/19/19 15:12 58 26 100 09/19/19 15:00 61 24 178/48 (91) 94 09/19/19 14:00 61 20 136/52 (80) 94 09/19/19 13:29 63 34 90 Mechanical Ventilator 100 60 32 09/19/19 13:06 71 40 143/68 (93) 91 09/19/19 12:19 148/59 09/19/19 12:19 66 148/59 09/19/19 12:00 75 09/19/19 12:00 Mechanical Ventilator 09/19/19 12:00 97.5 64 21 148/59 (88) 100 09/19/19 12:00 100 09/19/19 11:06 64 22 91 Mechanical Ventilator 100 86 26 09/19/19 11:00 63 31 157/66 (96) 90 09/19/19 10:04 60 29 153/63 (93) 90 09/19/19 09:29 58 30 100 09/19/19 09:00 60 28 148/60 (89) 90 09/19/19 08:13 71 141/48 09/19/19 08:00 100 09/19/19 08:00 97.3 66 20 141/48 (79) 98 09/19/19 08:00 Mechanical Ventilator 09/19/19 08:00 60 09/19/19 07:28 78 38 95 Mechanical Ventilator 100 76 35 09/19/19 07:00 79 37 164/67 (99) 91 09/19/19 06:00 82 37 161/64 (96) 88 09/19/19 05:33 170/59 09/19/19 05:33 73 170/59 09/19/19 05:18 68 24 75 09/19/19 05:00 71 34 170/59 (96) 93 09/19/19 04:00 Mechanical Ventilator 09/19/19 04:00 75 09/19/19 04:00 98.5 73 36 170/62 (98) 93 09/19/19 03:04 69 20 75 09/19/19 03:02 68 09/19/19 03:00 68 34 150/59 (89) 92 09/19/19 02:00 70 36 149/54 (85) 93 09/19/19 01:29 65 21 96 Mechanical Ventilator 75 62 22 75 09/19/19 01:00 73 37 157/63 (94) 94 09/19/19 00:39 177/62 09/19/19 00:39 76 177/62 09/19/19 00:00 98.1 69 36 177/62 (100) 89 09/19/19 00:00 75 09/19/19 00:00 Mechanical Ventilator 09/18/19 23:59 70 09/18/19 23:02 72 28 75 09/18/19 23:00 71 27 160/82 (108) 96 09/18/19 22:25 64 31 148/57 (87) 96 09/18/19 22:10 172/62 09/18/19 22:00 67 34 172/62 (98) 91 09/18/19 21:16 77 22 75 09/18/19 21:00 73 33 158/58 (91) 86 09/18/19 20:45 80 27 158/61 (93) 98 09/18/19 20:42 80 106/72 09/18/19 20:37 80 27 106/72 (83) 98 09/18/19 20:00 75 09/18/19 20:00 97.9 75 22 152/67 (95) 98 09/18/19 20:00 Mechanical Ventilator 09/18/19 19:58 75 24 98 Mechanical Ventilator 75 75 27 75 09/18/19 19:00 74 26 160/68 (98) 95 09/18/19 18:00 98.1 67 33 140/60 (86) 96 09/18/19 17:50 75 09/18/19 17:49 165/73 09/18/19 17:49 71 165/73 09/18/19 17:30 71 29 75 09/18/19 17:06 68 30 165/73 (103) 93 09/18/19 16:40 70 09/18/19 16:00 63 30 141/61 (87) 94 09/18/19 16:00 Mechanical Ventilator 09/18/19 15:26 70 30 80 09/18/19 15:19 73 09/18/19 15:02 80 09/18/19 15:00 70 33 167/66 (99) 96 09/18/19 14:00 70 34 175/74 (107) 99 09/18/19 13:35 67 28 80 09/18/19 13:00 62 31 154/67 (96) 95 Intake and Output 09/19/19 09/20/19 19:00 07:00 Intake Total 1441 ml 1169.333 ml Output Total 325 ml 320 ml Balance 1116 ml 849.333 ml IV Total 761 ml 589.333 ml Tube Feeding 480 ml 480 ml Other 200 ml 100 ml Output Urine Total 325 ml 320 ml Labs Test 09/17/19 12:59 09/17/19 14:23 09/18/19 03:00 09/18/19 10:45 Arterial Blood pH 7.350 (7.350-7.450) 7.368 (7.350-7.450) Arterial Blood Partial Pressure CO2 37.6 mmHg (35.0-45.0) 31.3 mmHg (35.0-45.0) Arterial Blood Partial Pressure O2 56.4 mmHg (75.0-100.0) 57.7 mmHg (75.0-100.0) Arterial Blood HCO3 20.3 mmol/L (22.0-26.0) 17.6 mmol/L (22.0-26.0) Arterial Blood Oxygen Saturation 89.5 % (95-100) 91.2 % (95-100) Arterial Blood Base Excess -4.3 (-2-2) -6.9 (-2-2) Rojas Test Positive Positive Urine Legionella Antigen Negative (Negative) White Blood Count 13.5 K/UL (4.8-10.8) Red Blood Count 2.77 M/UL (4.20-5.40) Hemoglobin 8.8 G/DL (12.0-16.0) Hematocrit 26.1 % (37.0-47.0) Mean Corpuscular Volume 94 FL (80-99) Mean Corpuscular Hemoglobin 31.8 PG (27.0-31.0) Mean Corpuscular Hemoglobin Concent 33.6 G/DL (32.0-36.0) Red Cell Distribution Width 15.0 % (11.6-14.8) Platelet Count 419 K/UL (150-450) Mean Platelet Volume 4.5 FL (6.5-10.1) Neutrophils (%) (Auto) 77.6 % (45.0-75.0) Lymphocytes (%) (Auto) 11.8 % (20.0-45.0) Monocytes (%) (Auto) 6.7 % (1.0-10.0) Eosinophils (%) (Auto) 3.3 % (0.0-3.0) Basophils (%) (Auto) 0.7 % (0.0-2.0) D-Dimer 2.86 mg/L FEU (0.00-0.49) Sodium Level 137 MMOL/L (136-145) Potassium Level 2.8 MMOL/L (3.5-5.1) Chloride Level 101 MMOL/L (98-107) Carbon Dioxide Level 20 MMOL/L (21-32) Anion Gap 16 mmol/L (5-15) Blood Urea Nitrogen 152 mg/dL (7-18) Creatinine 2.4 MG/DL (0.55-1.30) Estimat Glomerular Filtration Rate 21.7 mL/min (>60) Glucose Level 88 MG/DL (74-106) Uric Acid 8.2 MG/DL (2.6-7.2) Calcium Level 8.6 MG/DL (8.5-10.1) Phosphorus Level 3.1 MG/DL (2.5-4.9) Magnesium Level 3.7 MG/DL (1.8-2.4) Total Bilirubin 0.3 MG/DL (0.2-1.0) Aspartate Amino Transf (AST/SGOT) 21 U/L (15-37) Alanine Aminotransferase (ALT/SGPT) 14 U/L (12-78) Alkaline Phosphatase 164 U/L (46-116) Total Creatine Kinase 43 U/L (26-308) C-Reactive Protein, Quantitative 8.1 mg/dL (0.00-0.90) Total Protein 7.4 G/DL (6.4-8.2) Albumin 2.4 G/DL (3.4-5.0) Globulin 5.0 g/dL Albumin/Globulin Ratio 0.5 (1.0-2.7) Test 09/19/19 03:55 09/19/19 07:44 09/19/19 10:25 09/20/19 03:28 White Blood Count 12.1 K/UL (4.8-10.8) 13.0 K/UL (4.8-10.8) Red Blood Count 3.06 M/UL (4.20-5.40) 2.71 M/UL (4.20-5.40) Hemoglobin 9.6 G/DL (12.0-16.0) 8.7 G/DL (12.0-16.0) Hematocrit 29.0 % (37.0-47.0) 26.8 % (37.0-47.0) Mean Corpuscular Volume 95 FL (80-99) 99 FL (80-99) Mean Corpuscular Hemoglobin 31.5 PG (27.0-31.0) 31.9 PG (27.0-31.0) Mean Corpuscular Hemoglobin Concent 33.2 G/DL (32.0-36.0) 32.3 G/DL (32.0-36.0) Red Cell Distribution Width 15.7 % (11.6-14.8) 16.2 % (11.6-14.8) Platelet Count 421 K/UL (150-450) 354 K/UL (150-450) Mean Platelet Volume 4.6 FL (6.5-10.1) 4.9 FL (6.5-10.1) Neutrophils (%) (Auto) 68.4 % (45.0-75.0) 79.8 % (45.0-75.0) Lymphocytes (%) (Auto) 19.9 % (20.0-45.0) 10.1 % (20.0-45.0) Monocytes (%) (Auto) 6.7 % (1.0-10.0) 5.1 % (1.0-10.0) Eosinophils (%) (Auto) 4.3 % (0.0-3.0) 4.5 % (0.0-3.0) Basophils (%) (Auto) 0.8 % (0.0-2.0) 0.5 % (0.0-2.0) Sodium Level 137 MMOL/L (136-145) 141 MMOL/L (136-145) Potassium Level 3.2 MMOL/L (3.5-5.1) 3.3 MMOL/L (3.5-5.1) Chloride Level 102 MMOL/L (98-107) 106 MMOL/L (98-107) Carbon Dioxide Level 20 MMOL/L (21-32) 17 MMOL/L (21-32) Anion Gap 15 mmol/L (5-15) 18 mmol/L (5-15) Blood Urea Nitrogen 143 mg/dL (7-18) 146 mg/dL (7-18) Creatinine 2.4 MG/DL (0.55-1.30) 2.5 MG/DL (0.55-1.30) Estimat Glomerular Filtration Rate 21.7 mL/min (>60) 20.6 mL/min (>60) Glucose Level 113 MG/DL (74-106) 121 MG/DL (74-106) Uric Acid 8.6 MG/DL (2.6-7.2) Calcium Level 8.7 MG/DL (8.5-10.1) 8.2 MG/DL (8.5-10.1) Phosphorus Level 3.7 MG/DL (2.5-4.9) 3.6 MG/DL (2.5-4.9) Magnesium Level 3.6 MG/DL (1.8-2.4) 3.4 MG/DL (1.8-2.4) Total Bilirubin 0.3 MG/DL (0.2-1.0) 0.3 MG/DL (0.2-1.0) Aspartate Amino Transf (AST/SGOT) 23 U/L (15-37) 20 U/L (15-37) Alanine Aminotransferase (ALT/SGPT) 14 U/L (12-78) 16 U/L (12-78) Alkaline Phosphatase 167 U/L (46-116) 149 U/L (46-116) C-Reactive Protein, Quantitative 9.9 mg/dL (0.00-0.90) 5.9 mg/dL (0.00-0.90) Pro-B-Type Natriuretic Peptide > 59592 pg/mL (0-125) > 54487 pg/mL (0-125) Total Protein 7.9 G/DL (6.4-8.2) 7.3 G/DL (6.4-8.2) Albumin 2.7 G/DL (3.4-5.0) 2.3 G/DL (3.4-5.0) Globulin 5.2 g/dL 5.0 g/dL Albumin/Globulin Ratio 0.5 (1.0-2.7) 0.5 (1.0-2.7) Arterial Blood pH 7.253 (7.350-7.450) Arterial Blood Partial Pressure CO2 38.0 mmHg (35.0-45.0) Arterial Blood Partial Pressure O2 58.7 mmHg (75.0-100.0) Arterial Blood HCO3 16.4 mmol/L (22.0-26.0) Arterial Blood Oxygen Saturation 88.3 % (95-100) Arterial Blood Base Excess -10.0 (-2-2) Rojas Test Positive Lactic Acid Level 0.30 mmol/L (0.4-2.0) Random Vancomycin Level 17.6 ug/mL Test 09/20/19 07:53 Arterial Blood pH 7.305 (7.350-7.450) Arterial Blood Partial Pressure CO2 31.6 mmHg (35.0-45.0) Arterial Blood Partial Pressure O2 69.5 mmHg (75.0-100.0) Arterial Blood HCO3 15.4 mmol/L (22.0-26.0) Arterial Blood Oxygen Saturation 92.6 % (95-100) Arterial Blood Base Excess -10.0 (-2-2) Rojas Test Positive Height (Feet): 5 Height (Inches): 5.00 Weight (Pounds): 138 Objective Physical Exam: Vitals: reviewed General: NAD HEENT: nc, at Neck: supple ++tracn/vent Chest: clear breath sounds bilaterally Cardiovascular: RRR, no s3, s4 Abdomen: soft, nontender, nd +gtube Extremities: no cce, normal range of motion Neuro: alert Evan Muhammad MD Sep 20, 2019 12:12
--- NOTE | 2019-09-20 15:04 | Surgery Progress Note ---
Surgery Progress Note Subjective Additional Comments chest CT noted pending VQ scan labs reviewed exam stable Objective Last 24 Hour Vital Signs Date Time Temp Pulse Resp B/P (MAP) Pulse Ox O2 Delivery O2 Flow Rate FiO2 09/20/19 13:23 59 19 96 Mechanical Ventilator 100 60 19 100 09/20/19 13:00 59 18 152/51 (84) 95 09/20/19 12:04 97.6 74 28 153/48 (83) 82 09/20/19 12:00 61 09/20/19 12:00 Mechanical Ventilator 09/20/19 12:00 100 09/20/19 11:14 65 170/57 09/20/19 11:13 170/57 09/20/19 11:00 67 24 170/57 (94) 96 09/20/19 10:50 68 35 100 09/20/19 10:00 60 21 151/57 (88) 98 09/20/19 09:05 62 22 100 09/20/19 09:00 62 26 157/55 (89) 99 09/20/19 08:26 66 149/59 09/20/19 08:00 97.8 66 22 149/51 (83) 98 09/20/19 08:00 100 09/20/19 08:00 Mechanical Ventilator 09/20/19 08:00 69 09/20/19 07:30 74 32 98 Mechanical Ventilator 100 77 32 100 09/20/19 07:00 80 32 176/60 (98) 94 09/20/19 06:00 68 22 165/64 (97) 98 09/20/19 05:50 154/58 09/20/19 05:50 68 154/58 09/20/19 05:00 68 21 154/58 (90) 98 09/20/19 04:52 74 24 100 09/20/19 04:00 77 09/20/19 04:00 100 09/20/19 04:00 Mechanical Ventilator 09/20/19 04:00 97.9 77 36 178/70 (106) 96 09/20/19 03:00 74 38 163/67 (99) 94 09/20/19 02:56 69 32 100 09/20/19 02:00 59 18 140/57 (84) 97 09/20/19 01:00 63 20 134/50 (78) 97 09/20/19 00:26 68 175/63 09/20/19 00:25 175/63 09/20/19 00:08 76 36 98 Mechanical Ventilator 100 76 35 100 09/20/19 00:00 97.4 76 39 175/63 (100) 93 09/20/19 00:00 Mechanical Ventilator 09/20/19 00:00 75 09/19/19 23:00 74 39 179/64 (102) 93 09/19/19 22:43 69 30 100 09/19/19 22:00 59 23 150/55 (86) 97 09/19/19 21:00 72 31 161/64 (96) 99 09/19/19 20:43 73 144/51 09/19/19 20:34 67 17 100 09/19/19 20:00 61 09/19/19 20:00 100 09/19/19 20:00 Mechanical Ventilator 09/19/19 20:00 97.6 63 20 144/51 (82) 99 09/19/19 19:36 63 20 97 Mechanical Ventilator 100 62 18 100 09/19/19 19:00 71 21 149/52 (84) 95 09/19/19 18:09 154/57 09/19/19 18:09 68 154/57 09/19/19 18:00 64 16 154/57 (89) 98 09/19/19 17:10 62 16 100 09/19/19 17:00 97.5 62 18 150/54 (86) 99 09/19/19 16:00 100 09/19/19 16:00 Mechanical Ventilator 09/19/19 16:00 62 09/19/19 16:00 62 16 156/57 (90) 96 09/19/19 15:12 58 26 100 I&O Intake and Output 09/19/19 09/20/19 19:00 07:00 Intake Total 1441 ml 1219.333 ml Output Total 325 ml 320 ml Balance 1116 ml 899.333 ml IV Total 761 ml 639.333 ml Tube Feeding 480 ml 480 ml Other 200 ml 100 ml Output Urine Total 325 ml 320 ml Dressing: other Wound: other Drains: other Cardiovascular: RSR Respiratory: decreased breath sounds Abdomen: soft, non-tender, present bowel sounds Extremities: no edema, no tenderness, no cyanosis Laboratory Tests Test 09/20/19 03:28 09/20/19 07:53 White Blood Count 13.0 K/UL (4.8-10.8) H Red Blood Count 2.71 M/UL (4.20-5.40) L Hemoglobin 8.7 G/DL (12.0-16.0) L Hematocrit 26.8 % (37.0-47.0) L Mean Corpuscular Volume 99 FL (80-99) Mean Corpuscular Hemoglobin 31.9 PG (27.0-31.0) H Mean Corpuscular Hemoglobin Concent 32.3 G/DL (32.0-36.0) Red Cell Distribution Width 16.2 % (11.6-14.8) H Platelet Count 354 K/UL (150-450) Mean Platelet Volume 4.9 FL (6.5-10.1) L Neutrophils (%) (Auto) 79.8 % (45.0-75.0) H Lymphocytes (%) (Auto) 10.1 % (20.0-45.0) L Monocytes (%) (Auto) 5.1 % (1.0-10.0) Eosinophils (%) (Auto) 4.5 % (0.0-3.0) H Basophils (%) (Auto) 0.5 % (0.0-2.0) Sodium Level 141 MMOL/L (136-145) Potassium Level 3.3 MMOL/L (3.5-5.1) L Chloride Level 106 MMOL/L (98-107) Carbon Dioxide Level 17 MMOL/L (21-32) L Anion Gap 18 mmol/L (5-15) H Blood Urea Nitrogen 146 mg/dL (7-18) H Creatinine 2.5 MG/DL (0.55-1.30) H Estimat Glomerular Filtration Rate 20.6 mL/min (>60) Glucose Level 121 MG/DL (74-106) H Calcium Level 8.2 MG/DL (8.5-10.1) L Phosphorus Level 3.6 MG/DL (2.5-4.9) Magnesium Level 3.4 MG/DL (1.8-2.4) H Total Bilirubin 0.3 MG/DL (0.2-1.0) Aspartate Amino Transf (AST/SGOT) 20 U/L (15-37) Alanine Aminotransferase (ALT/SGPT) 16 U/L (12-78) Alkaline Phosphatase 149 U/L (46-116) H C-Reactive Protein, Quantitative 5.9 mg/dL (0.00-0.90) H Pro-B-Type Natriuretic Peptide > 00266 pg/mL (0-125) H Total Protein 7.3 G/DL (6.4-8.2) Albumin 2.3 G/DL (3.4-5.0) L Globulin 5.0 g/dL Albumin/Globulin Ratio 0.5 (1.0-2.7) L Random Vancomycin Level 17.6 ug/mL Arterial Blood pH 7.305 (7.350-7.450) Arterial Blood Partial Pressure CO2 31.6 mmHg (35.0-45.0) L Arterial Blood Partial Pressure O2 69.5 mmHg (75.0-100.0) L Arterial Blood HCO3 15.4 mmol/L (22.0-26.0) *L Arterial Blood Oxygen Saturation 92.6 % (95-100) L Arterial Blood Base Excess -10.0 (-2-2) *L Rojas Test Positive Plan Problems: (1) Anemia (2) Proteinuria (3) UTI (urinary tract infection) (4) ARF (acute renal failure) (5) ACS (acute coronary syndrome) (6) Respiratory failure, acute and chronic (7) HCAP (healthcare-associated pneumonia) (8) Abrasion of lip, initial encounter (9) COPD with exacerbation (10) Hypokalemia (11) Sepsis Assessment & Plan: Leukocytosis, anemia, abnormal labs. Renal insufficiency potentially dehydrated Abnormal LFTs alk phos elevated Urine noted significant bacteria likely UTI etiology Wound stable still requiring local care IV antibiotics per infectious disease Discussed with marine mechanic Dr. Berkowitz air mattress turn q2h nutritional tf will follow with recs thank you CT noted pending VQ scan (12) Chronic respiratory failure (13) Ascites (14) Bacteremia (15) Hypernatremia (16) Pleural effusion (17) Pacemaker (18) Aortic dissection, thoracic (19) Tracheostomy in place Assessment & Plan: trach stable no bleeding currently likely tongue etiology of mild oozing currently hemostatic without trauma (20) Feeding by G-tube Assessment & Plan: okay to resume tube feeds via g tube patent and functional dressings okay DAILY ESTIMATED NEEDS: Needs based on Pulmonary, wound 49kg 30-35 kcals/kg 0654-6404 total kcals 1.25-2 g protein/kg 61-98 g total protein Fluid per MD NUTRITION DIAGNOSIS: * Swallowing difficulty R/T dysphagia, respiratory status as evidenced by vent dep via T-collar, GT Dep. (CURRENT TF: Nepro @45ml/hr x 24 hrs) ENTERAL NUTRITION RECOMMENDATIONS: Nepro @ 40ml/hr x 24 hrs to provide 960ml, 1728kcal, 78g prot, 698ml free water * Rec LOWER current rate to 40ml/hr for 24 hrs run. 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 Base of wound is granular with bone exposure at base of sacrococcygeal.(L)10.5cm x (W06.5cm x (D) 2.8cm , undermining 11-3 by 3.6cm @12 o'clock. small amt serosanguineous exudate noted . Broadwell epithelial along edges bordered by darker skin tone without erythema. Resolving Pressure injury L ischium. Base of wound is 95% pink epithelial ,5% noni at center base of wound. No exudate noted. Both heels are boggy with non-Blanching erythema. Tx.plan: Cleanse Sacral wound with Saline. Loosely pack with Hydrogel impregnated Kerlix. Apply Moisture Barrier Periwound. Cover with Optifoam drsg Daily and prn. Apply Moisture Barrier paste to L Ischium. Cover with Optifoam drsg. Changee very 3 days and prn. Apply Cavilon Skin Barrier to both heels. Cover each heel with Optifoam drsgs. Change every 7 days and prn. Reposition at least every 2hours or as tolerated. Off-load heels with pillow. APM/JENNIFER Mattress overlay. Lane Saavedra Sep 20, 2019 15:04
--- NOTE | 2019-09-20 16:31 | Diagnostic Imaging Report ---
Indication: Chest pain Technique: A perfusion scan was performed. Perfusion was performed with 5 mCi of technetium 99m-MAA injected intravenously. Multiple side by side projections obtained. Findings: Wedge-shaped defect in the right upper lobe likely corresponds to a combination of pleural effusion and compressive atelectasis seen on comparison chest CT. Perfusion is otherwise homogenous. Perfusion defect along the right major fissure may correspond to layering pleural fluid. Impression: Limited examination with only perfusion images obtained. Within these limitations, findings suggest low probability of pulmonary embolism.
[2019-09-20] MEDS ORDERED: D5NS 1000ml IV ONE (19:16)
[2019-09-20] MEDS ORDERED: Tubing IV Secondary IV ONE (19:16)
[2019-09-20] MEDS ORDERED: NS 275ml ONE (19:16)
[2019-09-20] MEDS: Sertraline 100mg tab GT SCH (19:55)
[2019-09-20] MEDS: Epoetin Alfa-EPBX (NON ESRD)10,000 unit/ml vial SUBQ SCH (20:05)
[2019-09-20] MEDS: HYDROcodone/Acetamin 10/325 tab GT PRN (20:09)
[2019-09-21] VITALS (32 sets, daily range): BP systolic 130–195; BP diastolic 51–71
[2019-09-21] MEDS: Albuterol/Ipratropium 3ml neb HHN SCH ×4 (01:29→19:20)
[2019-09-21] MEDS: Acetylcysteine 20% Soln 4ml HHN SCH ×4 (01:31→19:20)
[2019-09-21] MEDS: HydrALAZINE 50mg tab GT SCH ×4 (05:30→23:12)
[2019-09-21] MEDS: dilTIAZem HCl 60mg tab GT SCH ×4 (05:30→23:12)
[2019-09-21 05:39] LABS: HEMATOCRIT 23.8 % (37.0-47.0); HEMOGLOBIN 7.6 G/DL (12.0-16.0); MEAN CORPUSCULAR VOLUME 98 FL (80-99); PLATELET COUNT 313 K/UL (150-450); RED BLOOD COUNT 2.42 M/UL (4.20-5.40); RED CELL DISTRIBUTION WIDTH 16.5 % (11.6-14.8); WHITE BLOOD COUNT 9.6 K/UL (4.8-10.8)
[2019-09-21 06:05] LABS: ALANINE AMINOTRANSFERASE 12 U/L (12-78); ALBUMIN 2.3 G/DL (3.4-5.0); ALBUMIN/GLOBULIN RATIO 0.5 (1.0-2.7); ALKALINE PHOSPHATASE 158 U/L (46-116); ANION GAP 15 mmol/L (5-15); ASPARTATE AMINO TRANSFERASE 20 U/L (15-37); BILIRUBIN,TOTAL 0.3 MG/DL (0.2-1.0); BLOOD UREA NITROGEN 151 mg/dL (7-18); CALCIUM 8.8 MG/DL (8.5-10.1); CARBON DIOXIDE 18 MMOL/L (21-32); CHLORIDE 107 MMOL/L (98-107); CREATININE 2.4 MG/DL (0.55-1.30); PHOSPHORUS 3.9 MG/DL (2.5-4.9); SODIUM 140 MMOL/L (136-145)
[2019-09-21] MEDS: LORazepam Inj 2mg/ml 1ml IV PRN (06:24)
[2019-09-21] MEDS: HYDROcodone/Acetamin 10/325 tab GT PRN ×2 (08:05→21:34)
[2019-09-21] MEDS: Docusate 100mg/10ml Liq GT SCH ×3 (08:06→17:48)
[2019-09-21] MEDS: OLANZapine 2.5mg tab GT SCH (08:06)
[2019-09-21] MEDS: Haloperidol Lactate 5 MG in D5W 55 ML IVPB PRN (08:06)
[2019-09-21] MEDS: Metoprolol Tartrate 50mg tab GT SCH ×2 (08:07→20:11)
[2019-09-21] MEDS: clonazePAM 0.5mg tab GT SCH ×2 (08:07→20:10)
[2019-09-21] MEDS: Meropenem 1 GM in NS 55 ML IVPB SCH ×2 (08:08→20:13)
[2019-09-21] MEDS: Heparin 5000 units/ml inj SUBQ SCH ×2 (08:08→20:11)
--- NOTE | 2019-09-21 08:14 | Diagnostic Imaging Report ---
EXAM: XR Chest, 1 View CLINICAL HISTORY: SOB TECHNIQUE: Frontal view of the chest. COMPARISON: Chest x-ray 09/20/19 0810 FINDINGS: Lungs: Improved airspace disease in the bilateral lower lobes. Similar bilateral upper lobe and perihilar densities. Pleural space: Trace residual right pleural effusion. Similar small left pleural effusion. No pneumothorax. Heart: Unremarkable. No cardiomegaly. Mediastinum: Unremarkable. Bones/joints: Median sternotomy. Tubes, lines and devices: Tracheostomy tube. IMPRESSION: 1. Improved airspace disease in the bilateral lower lobes. Similar bilateral upper lobe and perihilar densities. 2. Trace residual right pleural effusion. Similar small left pleural effusion.
--- NOTE | 2019-09-21 08:19 | Pulmonolgy Critical Care Note ---
CastroYara luna CHARGER TESTER 09/21/19 0819: Critical Care - Asmt/Plan Assessment/Plan: ASSESSMENT Acute on chronic respiratory failure, now on vent Tracheostomy status, s/p change to cuffed trach Sepsis Pulmonary edema pleural effusion Pneumonia UTI CHF ? cardiorenal COPD Acute kidney injury and chronic kidney disease Hypertension Atrial fibrillation Moderate pulm HTN Moderate AR Dysphagia , feeding by G-tube Electrolyte abnormalities Anemia Toxic metabolic encephalopathy likely due to sepsis and ARF HTN PAF PLAN OF CARE ICU on vent AC trach changed 09/16 pm from uncuffed to cuffed Shiley#7 XLT CXR 09/16 -> -Worsening of right lung infiltrates and right effusion. tap on 09/17 not done, felt by IR not safe due to small amounts of pleural effusion ABG this am on high FiO2 80% noted; unable to down titrated FiO2 CXR 09/17 ->Improved aeration with decreased hazy bilateral opacities which may related toimproved airspace disease and/or decreased layering pleural fluid. however desaturated over night ABG 09/18 on 100% FiO2 with hypoxia stat VQ scan order, not done check lactate level-> 0.3 repeat rapid COVID 19 09/18 -> NGT PEEP increased to 7 ABG 09/19 -> no hypoxia CT chest w/out contrast: - Bilateral pleural effusions, right greater than left, with bilateral lower lobe consolidation or volume loss. -Ground-glass densities in the upper lobes bilaterally. This is not specific. -Tracheostomy. -Increased superior mediastinal density. Stability of adenopathy cannot be excluded. -Atherosclerotic change. -Gastrostomy. -Ascites. -Left renal stent with left hydronephrosis and renal atrophy. VQ scan -> low probability for PE CXR 09/19 no change ABG for this am pending trach care ,pulmonary toilet total rapid COVID 19 NGT x3 sedation abx as per ID-Meropenem, Vanco SCX 8/3 + Proteus UCX 8/2 + Providencia BCX 8/2 Staph epidermidis, BCX 8/ NGTD aspiration precautions venous Duplex BLE -> NGT DVT prophylaxis monitor volumes was on gentle IVF-> dc monitor renal parameters, lytes, correct lytes as needed , avoid nephrotoxics hypo Na resolved - per nephro management K replaced this am as per nephro s/ p Zaroxyline 09/19 s/p prior diuretic-Lasix ECHO with pEF , moderate pulm HTN and moderate AR BP management with current regimen of BB, Cardizem and Hydralazine, remains in SR monitor HH with goal to keep Hgb >7, heme on board on EPO supportive care pain management wound care bowel regimen thank you for a consult Critical Care - Objective Last 24 Hour Vital Signs Date Time Temp Pulse Resp B/P (MAP) Pulse Ox O2 Delivery O2 Flow Rate FiO2 09/21/19 07:22 67 39 95 Mechanical Ventilator 100 74 47 100 09/21/19 07:00 68 32 147/60 (89) 98 09/21/19 06:00 69 26 146/58 (87) 98 09/21/19 05:30 150/60 09/21/19 05:30 72 150/60 09/21/19 05:00 69 22 100 09/21/19 05:00 70 20 150/60 (90) 100 09/21/19 04:00 Mechanical Ventilator 09/21/19 04:00 100 09/21/19 04:00 63 09/21/19 04:00 97.8 71 22 160/65 (96) 99 09/21/19 03:02 75 42 100 09/21/19 03:00 63 32 149/54 (85) 99 09/21/19 02:00 63 22 154/57 (89) 98 09/21/19 01:34 63 21 99 Mechanical Ventilator 100 68 21 100 09/21/19 01:00 62 22 145/55 (85) 97 09/21/19 00:00 98.9 74 39 179/69 (105) 93 09/21/19 00:00 74 09/21/19 00:00 100 09/21/19 00:00 Mechanical Ventilator 09/20/19 23:37 176/67 09/20/19 23:37 75 176/67 09/20/19 23:15 76 45 100 09/20/19 23:00 74 39 176/67 (103) 92 09/20/19 22:00 63 24 157/60 (92) 95 09/20/19 21:05 70 32 100 09/20/19 21:00 60 24 141/52 (81) 97 09/20/19 20:00 81 09/20/19 20:00 Mechanical Ventilator 09/20/19 20:00 100 09/20/19 20:00 98.4 79 44 178/59 (98) 94 09/20/19 19:54 79 149/50 09/20/19 19:00 68 25 149/50 (83) 98 09/20/19 18:51 72 33 98 Mechanical Ventilator 100 72 30 100 09/20/19 18:00 72 20 154/53 (86) 100 09/20/19 17:35 177/65 09/20/19 17:35 85 177/65 09/20/19 17:29 79 35 100 09/20/19 17:00 79 32 177/65 (102) 96 09/20/19 16:00 100 09/20/19 16:00 Mechanical Ventilator 09/20/19 16:00 64 09/20/19 16:00 97.8 65 21 158/55 (89) 99 09/20/19 15:10 64 19 100 09/20/19 15:00 63 21 156/54 (88) 97 09/20/19 14:00 62 20 154/53 (86) 95 09/20/19 13:23 59 19 96 Mechanical Ventilator 100 60 19 100 09/20/19 13:00 59 18 152/51 (84) 95 09/20/19 12:04 97.6 74 28 153/48 (83) 82 09/20/19 12:00 61 09/20/19 12:00 Mechanical Ventilator 09/20/19 12:00 100 09/20/19 11:14 65 170/57 09/20/19 11:13 170/57 09/20/19 11:00 67 24 170/57 (94) 96 09/20/19 10:50 68 35 100 09/20/19 10:00 60 21 151/57 (88) 98 09/20/19 09:05 62 22 100 09/20/19 09:00 62 26 157/55 (89) 99 09/20/19 08:26 66 149/59 Objective: General Appearance: no apparent distress, bedridden middle age chronically ill looking female on vent AC 450-12-100% PEEP 7 Lines, tubes and drains: peripheral HEENT: normocephalic, atraumatic, anicteric, status post trach - Shiley #7 cuffed XLT, secretions small amount, red /blood , thick consistency Respiratory/Chest: no accessory muscle use, few scattered rhonchi bilaterally , tachypneic Cardiovascular/Chest: normal rate, regular rhythm - SR on tele Abdomen: normal bowel sounds, non tender, soft, G tube Genitourinary/Rectal: Norman Extremities: no edema Skin Exam: warm/dry, multiple tattoos all over the body Neurologic: abnormal gait, restless Musculoskeletal: atrophy - BLE Micro: Microbiology Date/Time Source Procedure Growth Status 09/19/19 10:00 Nasopharynx SARS-CoV-2 RdRp Gene Assay - Final Complete Critical Care - Subjective ROS Limited/Unobtainable: Yes Interval Events: leuk resolved, afebrile remains on FiO2 100% with PEEP 7 sat ok, very restless and tachypneic VQ scan with low probability for PE ABG pending RT suctioned blood creat down to 2.4. K stable after replacement Condition: critical EKG Rhythm: Sinus Rhythm FI02: 100 Vent Support Breath Rate: 12 Vent Support Mode: AC Vent Tidal Volume: 450 Sputum Amount: Small PEEP: 7.0 PIP: 36 Tube Feeding Amount: 40 I&O: Intake and Output 09/20/19 09/21/19 19:00 07:00 Intake Total 1166 ml 681 ml Output Total 470 ml 380 ml Balance 696 ml 301 ml Intake Free Water 50 ml IV Total 636 ml 111 ml Tube Feeding 480 ml 480 ml Other 90 ml Output Urine Total 470 ml 380 ml CXR: CXRv 09/19 ->Tracheostomy remains in place. Bilateral alveolar infiltrates are unchanged. Cardiomegaly and effusions unchanged. The bony thorax appear unremarkable. No significant change from before Juve Martinez MD 09/21/19 1352: Critical Care - Asmt/Plan Assessment/Plan: Patient seen and examined with CHARGER TESTER. Agree with above A&P as it reflects our joint deliberations. Better with Fent gtt for RASS -2 and PRN Versed, more synchrous with vent, will dec FiO2 and PEEP as able. Monitor renal function, euvolemic on exam. NAEO o/w 40 min CCT Yara Castro CHARGER TESTER Sep 21, 2019 08:19 Juve Martinez MD Sep 21, 2019 13:52
[2019-09-21] MEDS ORDERED: NS 275ml ONE (08:46)
[2019-09-21] MEDS ORDERED: D5W 550ml IV ONE (08:46)
[2019-09-21] MEDS: fentaNYL 2500mcg/NS 250ml 250 ML IV SCH (09:53)
[2019-09-21] MEDS: Midazolam 2mg/2ml Inj IVP PRN (10:01)
[2019-09-21] MEDS: Ipratropium 0.02% Inh Soln 2.5ml UD HHN PRN (10:36)
--- NOTE | 2019-09-21 10:49 | Nephrology Progress Note ---
Assessment/Plan Problem List: (1) JAVIER (acute kidney injury) (2) Renal failure (ARF), acute on chronic (3) Dehydration (4) Electrolyte imbalance (5) Anemia (6) Respiratory failure, acute and chronic (7) COPD with exacerbation Assessment Patient is presented with sepsis and pneumonia and UTI Patient has acute renal failure, possible underlying chronic kidney failure Severe anemia Electrolyte imbalances: Hyponatremia, hypo-kalemia Chronic respiratory failure, COPD exacerbation Plan September 20: Patient periodically agitated. Labs reviewed. Creatinine 2.4. Medication reviewed. Continue per consultants. Calculated creatinine clearance 21. May need isolated ultrafiltration on dialysis. Will discuss with PMD. Meanwhile hemoglobin is lower, defer transfusion to PMD. September 19: DC IV fluid. Zaroxolyn via GT tube. Potassium supplement. Attempt to diurese. Chest CT as bilateral pleural effusion. If diuresis unsuccessful, will consider dialysis and ultrafiltration. September 18: Potassium supplement IV given. Hemoglobin stable. Patient remains full code. Continue per consultants. Previously: Potassium supplement IV Slow IV hydration Epogen subcu Adjust blood pressure medication IV fluid, rate adjusted Norman catheter, intake and output Monitor renal parameters Avoid nephrotoxic's Antibiotics Per orders 2D echocardiogram Kidney ultrasound Subjective ROS Limited/Unobtainable: Yes Objective Objective Last 24 Hour Vital Signs Date Time Temp Pulse Resp B/P (MAP) Pulse Ox O2 Delivery O2 Flow Rate FiO2 09/21/19 10:36 64 27 89 Mechanical Ventilator 100 64 31 100 09/21/19 10:00 40 152/56 Mechanical Ventilator 100 09/21/19 10:00 64 40 152/56 (88) 83 09/21/19 09:53 39 162/61 Mechanical Ventilator 100 09/21/19 09:00 66 43 162/61 (94) 90 09/21/19 08:35 74 45 100 09/21/19 08:07 89 195/71 09/21/19 08:00 Mechanical Ventilator 09/21/19 08:00 98.3 88 42 195/71 (112) 93 09/21/19 08:00 100 09/21/19 08:00 66 09/21/19 07:22 67 39 95 Mechanical Ventilator 100 74 47 100 09/21/19 07:00 68 32 147/60 (89) 98 09/21/19 06:00 69 26 146/58 (87) 98 09/21/19 05:30 150/60 09/21/19 05:30 72 150/60 09/21/19 05:00 69 22 100 09/21/19 05:00 70 20 150/60 (90) 100 09/21/19 04:00 Mechanical Ventilator 09/21/19 04:00 100 09/21/19 04:00 63 09/21/19 04:00 97.8 71 22 160/65 (96) 99 09/21/19 03:02 75 42 100 09/21/19 03:00 63 32 149/54 (85) 99 09/21/19 02:00 63 22 154/57 (89) 98 09/21/19 01:34 63 21 99 Mechanical Ventilator 100 68 21 100 09/21/19 01:00 62 22 145/55 (85) 97 09/21/19 00:00 98.9 74 39 179/69 (105) 93 09/21/19 00:00 74 09/21/19 00:00 100 09/21/19 00:00 Mechanical Ventilator 09/20/19 23:37 176/67 09/20/19 23:37 75 176/67 09/20/19 23:15 76 45 100 09/20/19 23:00 74 39 176/67 (103) 92 09/20/19 22:00 63 24 157/60 (92) 95 09/20/19 21:05 70 32 100 09/20/19 21:00 60 24 141/52 (81) 97 09/20/19 20:00 81 09/20/19 20:00 Mechanical Ventilator 09/20/19 20:00 100 09/20/19 20:00 98.4 79 44 178/59 (98) 94 09/20/19 19:54 79 149/50 09/20/19 19:00 68 25 149/50 (83) 98 09/20/19 18:51 72 33 98 Mechanical Ventilator 100 72 30 100 09/20/19 18:00 72 20 154/53 (86) 100 09/20/19 17:35 177/65 09/20/19 17:35 85 177/65 09/20/19 17:29 79 35 100 09/20/19 17:00 79 32 177/65 (102) 96 09/20/19 16:00 100 09/20/19 16:00 Mechanical Ventilator 09/20/19 16:00 64 09/20/19 16:00 97.8 65 21 158/55 (89) 99 09/20/19 15:10 64 19 100 09/20/19 15:00 63 21 156/54 (88) 97 09/20/19 14:00 62 20 154/53 (86) 95 09/20/19 13:23 59 19 96 Mechanical Ventilator 100 60 19 100 09/20/19 13:00 59 18 152/51 (84) 95 09/20/19 12:04 97.6 74 28 153/48 (83) 82 09/20/19 12:00 61 09/20/19 12:00 Mechanical Ventilator 09/20/19 12:00 100 09/20/19 11:14 65 170/57 09/20/19 11:13 170/57 09/20/19 11:00 67 24 170/57 (94) 96 09/20/19 10:50 68 35 100 Intake and Output 09/20/19 09/21/19 19:00 07:00 Intake Total 1166 ml 681 ml Output Total 470 ml 380 ml Balance 696 ml 301 ml Intake Free Water 50 ml IV Total 636 ml 111 ml Tube Feeding 480 ml 480 ml Other 90 ml Output Urine Total 470 ml 380 ml Laboratory Tests 09/21/19 05:00: White Blood Count 9.6, Red Blood Count 2.42L, Hemoglobin 7.6L, Hematocrit 23.8L , Mean Corpuscular Volume 98, Mean Corpuscular Hemoglobin 31.4H, Mean Corpuscular Hemoglobin Concent 31.9L, Red Cell Distribution Width 16.5H, Platelet Count 313, Mean Platelet Volume 4.9L, Neutrophils (%) (Auto) , Lymphocytes (%) (Auto) , Monocytes (%) (Auto) , Eosinophils (%) (Auto) , Basophils (%) (Auto) , Differential Total Cells Counted 100, Neutrophils % ( Manual) 76H, Lymphocytes % (Manual) 17L, Monocytes % (Manual) 6, Eosinophils % ( Manual) 1, Basophils % (Manual) 0, Band Neutrophils 0, Nucleated Red Blood Cells 1, Platelet Estimate Adequate, Platelet Morphology Normal, Hypochromasia 1 +, Anisocytosis 1+, Sodium Level 140, Potassium Level 4.0, Chloride Level 107, Carbon Dioxide Level 18L, Anion Gap 15, Blood Urea Nitrogen 151H, Creatinine 2.4H, Estimat Glomerular Filtration Rate 21.7, Glucose Level 105, Uric Acid 8.4H , Calcium Level 8.8, Phosphorus Level 3.9, Magnesium Level 3.5H, Total Bilirubin 0.3, Aspartate Amino Transf (AST/SGOT) 20, Alanine Aminotransferase ( ALT/SGPT) 12, Alkaline Phosphatase 158H, C-Reactive Protein, Quantitative 4.4H, Total Protein 6.9, Albumin 2.3L, Globulin 4.6, Albumin/Globulin Ratio 0.5L 09/21/19 07:55: Arterial Blood pH 7.271L, Arterial Blood Partial Pressure CO2 36.0, Arterial Blood Partial Pressure O2 60.9L, Arterial Blood HCO3 16.2*L, Arterial Blood Oxygen Saturation 90.3L, Arterial Blood Base Excess -9.8*L, Rojas Test Positive Height (Feet): 5 Height (Inches): 5.00 Weight (Pounds): 138 General Appearance: mild distress, agitated EENT: other - Trach to vent Cardiovascular: tachycardia Respiratory/Chest: decreased breath sounds Abdomen: distended Johnny Houston MD Sep 21, 2019 10:49
--- NOTE | 2019-09-21 10:51 | Surgery Progress Note ---
Surgery Progress Note Subjective Additional Comments VQ scan noted desaturating on 100%fio2 peep 7 working to breath needs sedation Objective Last 24 Hour Vital Signs Date Time Temp Pulse Resp B/P (MAP) Pulse Ox O2 Delivery O2 Flow Rate FiO2 09/21/19 10:36 64 27 89 Mechanical Ventilator 100 64 31 100 09/21/19 10:00 40 152/56 Mechanical Ventilator 100 09/21/19 10:00 64 40 152/56 (88) 83 09/21/19 09:53 39 162/61 Mechanical Ventilator 100 09/21/19 09:00 66 43 162/61 (94) 90 09/21/19 08:35 74 45 100 09/21/19 08:07 89 195/71 09/21/19 08:00 Mechanical Ventilator 09/21/19 08:00 98.3 88 42 195/71 (112) 93 09/21/19 08:00 100 09/21/19 08:00 66 09/21/19 07:22 67 39 95 Mechanical Ventilator 100 74 47 100 09/21/19 07:00 68 32 147/60 (89) 98 09/21/19 06:00 69 26 146/58 (87) 98 09/21/19 05:30 150/60 09/21/19 05:30 72 150/60 09/21/19 05:00 69 22 100 09/21/19 05:00 70 20 150/60 (90) 100 09/21/19 04:00 Mechanical Ventilator 09/21/19 04:00 100 09/21/19 04:00 63 09/21/19 04:00 97.8 71 22 160/65 (96) 99 09/21/19 03:02 75 42 100 09/21/19 03:00 63 32 149/54 (85) 99 09/21/19 02:00 63 22 154/57 (89) 98 09/21/19 01:34 63 21 99 Mechanical Ventilator 100 68 21 100 09/21/19 01:00 62 22 145/55 (85) 97 09/21/19 00:00 98.9 74 39 179/69 (105) 93 09/21/19 00:00 74 09/21/19 00:00 100 09/21/19 00:00 Mechanical Ventilator 09/20/19 23:37 176/67 09/20/19 23:37 75 176/67 09/20/19 23:15 76 45 100 09/20/19 23:00 74 39 176/67 (103) 92 09/20/19 22:00 63 24 157/60 (92) 95 09/20/19 21:05 70 32 100 09/20/19 21:00 60 24 141/52 (81) 97 09/20/19 20:00 81 09/20/19 20:00 Mechanical Ventilator 09/20/19 20:00 100 09/20/19 20:00 98.4 79 44 178/59 (98) 94 09/20/19 19:54 79 149/50 09/20/19 19:00 68 25 149/50 (83) 98 09/20/19 18:51 72 33 98 Mechanical Ventilator 100 72 30 100 09/20/19 18:00 72 20 154/53 (86) 100 09/20/19 17:35 177/65 09/20/19 17:35 85 177/65 09/20/19 17:29 79 35 100 09/20/19 17:00 79 32 177/65 (102) 96 09/20/19 16:00 100 09/20/19 16:00 Mechanical Ventilator 09/20/19 16:00 64 09/20/19 16:00 97.8 65 21 158/55 (89) 99 09/20/19 15:10 64 19 100 09/20/19 15:00 63 21 156/54 (88) 97 09/20/19 14:00 62 20 154/53 (86) 95 09/20/19 13:23 59 19 96 Mechanical Ventilator 100 60 19 100 09/20/19 13:00 59 18 152/51 (84) 95 09/20/19 12:04 97.6 74 28 153/48 (83) 82 09/20/19 12:00 61 09/20/19 12:00 Mechanical Ventilator 09/20/19 12:00 100 09/20/19 11:14 65 170/57 09/20/19 11:13 170/57 09/20/19 11:00 67 24 170/57 (94) 96 I&O Intake and Output 09/20/19 09/21/19 19:00 07:00 Intake Total 1166 ml 681 ml Output Total 470 ml 380 ml Balance 696 ml 301 ml Intake Free Water 50 ml IV Total 636 ml 111 ml Tube Feeding 480 ml 480 ml Other 90 ml Output Urine Total 470 ml 380 ml Dressing: saturated Cardiovascular: RSR Respiratory: decreased breath sounds Abdomen: soft, non-tender, present bowel sounds Extremities: no edema, no tenderness, no cyanosis Laboratory Tests Test 09/21/19 05:00 09/21/19 07:55 09/21/19 10:36 White Blood Count 9.6 K/UL (4.8-10.8) Red Blood Count 2.42 M/UL (4.20-5.40) L Hemoglobin 7.6 G/DL (12.0-16.0) L Hematocrit 23.8 % (37.0-47.0) L Mean Corpuscular Volume 98 FL (80-99) Mean Corpuscular Hemoglobin 31.4 PG (27.0-31.0) H Mean Corpuscular Hemoglobin Concent 31.9 G/DL (32.0-36.0) L Red Cell Distribution Width 16.5 % (11.6-14.8) H Platelet Count 313 K/UL (150-450) Mean Platelet Volume 4.9 FL (6.5-10.1) L Neutrophils (%) (Auto) % (45.0-75.0) Lymphocytes (%) (Auto) % (20.0-45.0) Monocytes (%) (Auto) % (1.0-10.0) Eosinophils (%) (Auto) % (0.0-3.0) Basophils (%) (Auto) % (0.0-2.0) Differential Total Cells Counted 100 Neutrophils % (Manual) 76 % (45-75) H Lymphocytes % (Manual) 17 % (20-45) L Monocytes % (Manual) 6 % (1-10) Eosinophils % (Manual) 1 % (0-3) Basophils % (Manual) 0 % (0-2) Band Neutrophils 0 % (0-8) Nucleated Red Blood Cells 1 /100 WBC Platelet Estimate Adequate Platelet Morphology Normal Hypochromasia 1+ Anisocytosis 1+ Sodium Level 140 MMOL/L (136-145) Potassium Level 4.0 MMOL/L (3.5-5.1) Chloride Level 107 MMOL/L (98-107) Carbon Dioxide Level 18 MMOL/L (21-32) L Anion Gap 15 mmol/L (5-15) Blood Urea Nitrogen 151 mg/dL (7-18) H Creatinine 2.4 MG/DL (0.55-1.30) H Estimat Glomerular Filtration Rate 21.7 mL/min (>60) Glucose Level 105 MG/DL (74-106) Uric Acid 8.4 MG/DL (2.6-7.2) H Calcium Level 8.8 MG/DL (8.5-10.1) Phosphorus Level 3.9 MG/DL (2.5-4.9) Magnesium Level 3.5 MG/DL (1.8-2.4) H Total Bilirubin 0.3 MG/DL (0.2-1.0) Aspartate Amino Transf (AST/SGOT) 20 U/L (15-37) Alanine Aminotransferase (ALT/SGPT) 12 U/L (12-78) Alkaline Phosphatase 158 U/L (46-116) H C-Reactive Protein, Quantitative 4.4 mg/dL (0.00-0.90) H Total Protein 6.9 G/DL (6.4-8.2) Albumin 2.3 G/DL (3.4-5.0) L Globulin 4.6 g/dL Albumin/Globulin Ratio 0.5 (1.0-2.7) L Arterial Blood pH 7.271 (7.350-7.450) 7.303 (7.350-7.450) Arterial Blood Partial Pressure CO2 36.0 mmHg (35.0-45.0) 32.1 mmHg (35.0-45.0) L Arterial Blood Partial Pressure O2 60.9 mmHg (75.0-100.0) L 55.9 mmHg (75.0-100.0) L Arterial Blood HCO3 16.2 mmol/L (22.0-26.0) *L 15.5 mmol/L (22.0-26.0) *L Arterial Blood Oxygen Saturation 90.3 % (95-100) L 87.2 % (95-100) *L Arterial Blood Base Excess -9.8 (-2-2) *L -9.8 (-2-2) *L Rojas Test Positive Positive Plan Problems: (1) Anemia (2) Proteinuria (3) UTI (urinary tract infection) (4) ARF (acute renal failure) (5) ACS (acute coronary syndrome) (6) Respiratory failure, acute and chronic (7) HCAP (healthcare-associated pneumonia) (8) Abrasion of lip, initial encounter (9) COPD with exacerbation (10) Hypokalemia (11) Sepsis Assessment & Plan: Leukocytosis, anemia, abnormal labs. Renal insufficiency potentially dehydrated Abnormal LFTs alk phos elevated Urine noted significant bacteria likely UTI etiology Wound stable still requiring local care IV antibiotics per infectious disease Discussed with engraver set up operator Dr. Berkowitz air mattress turn q2h nutritional tf will follow with recs thank you CT noted pending VQ scan - noted poor study low prob PE work respiratory increasing needs sedation (12) Chronic respiratory failure (13) Ascites (14) Bacteremia (15) Hypernatremia (16) Pleural effusion (17) Pacemaker (18) Aortic dissection, thoracic (19) Tracheostomy in place Assessment & Plan: trach stable no bleeding currently likely tongue etiology of mild oozing currently hemostatic without trauma (20) Feeding by G-tube Assessment & Plan: okay to resume tube feeds via g tube patent and functional dressings okay DAILY ESTIMATED NEEDS: Needs based on Pulmonary, wound 49kg 30-35 kcals/kg 4856-2030 total kcals 1.25-2 g protein/kg 61-98 g total protein Fluid per MD NUTRITION DIAGNOSIS: * Swallowing difficulty R/T dysphagia, respiratory status as evidenced by vent dep via T-collar, GT Dep. (CURRENT TF: Nepro @45ml/hr x 24 hrs) ENTERAL NUTRITION RECOMMENDATIONS: Nepro @ 40ml/hr x 24 hrs to provide 960ml, 1728kcal, 78g prot, 698ml free water * Rec LOWER current rate to 40ml/hr for 24 hrs run. 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 Base of wound is granular with bone exposure at base of sacrococcygeal.(L)10.5cm x (W06.5cm x (D) 2.8cm , undermining 11-3 by 3.6cm @12 o'clock. small amt serosanguineous exudate noted . [place] epithelial along edges bordered by darker skin tone without erythema. Resolving Pressure injury L ischium. Base of wound is 95% pink epithelial ,5% noni at center base of wound. No exudate noted. Both heels are boggy with non-Blanching erythema. Tx.plan: Cleanse Sacral wound with Saline. Loosely pack with Hydrogel impregnated Kerlix. Apply Moisture Barrier Periwound. Cover with Optifoam drsg Daily and prn. Apply Moisture Barrier paste to L Ischium. Cover with Optifoam drsg. Changee very 3 days and prn. Apply Cavilon Skin Barrier to both heels. Cover each heel with Optifoam drsgs. Change every 7 days and prn. Reposition at least every 2hours or as tolerated. Off-load heels with pillow. APM/JENNIFER Mattress overlay. Lane Saavedra Sep 21, 2019 10:51
--- NOTE | 2019-09-21 11:56 | Diagnostic Imaging Report ---
EXAM: XR Chest, 1 View CLINICAL HISTORY: SOB TECHNIQUE: Frontal view of the chest. COMPARISON: Chest x-ray 09/21/19 at 735 FINDINGS: Lungs: Interval worsening bilateral lower lobe opacities, worse on the right. Left perihilar opacities similar and slightly improved right upper lobe opacity. Pleural space: Worsening bilateral pleural effusions, worse on the right. No pneumothorax. Heart: Cardiomegaly. Mediastinum: Unremarkable. Bones/joints: Median sternotomy. Tubes, lines and devices: Stable tracheostomy tube. IMPRESSION: 1. Interval worsening bilateral lower lobe opacities, worse on the right. Left perihilar opacities similar and slightly improved right upper lobe opacity. 2. Worsening bilateral pleural effusions, worse on the right.
[2019-09-21] MEDS: Sertraline 100mg tab GT SCH (20:11)
[2019-09-21] MEDS: Pantoprazole Inj IVP SCH (20:11)
[2019-09-22] VITALS (39 sets, daily range): BP systolic 138–188; BP diastolic 46–71
[2019-09-22] MEDS: Acetylcysteine 20% Soln 4ml HHN SCH ×4 (00:54→19:51)
[2019-09-22] MEDS: Albuterol/Ipratropium 3ml neb HHN SCH ×4 (00:54→19:51)
[2019-09-22] MEDS: HydrALAZINE 50mg tab GT SCH ×4 (05:34→23:50)
[2019-09-22] MEDS: dilTIAZem HCl 60mg tab GT SCH ×4 (05:34→23:50)
--- NOTE | 2019-09-22 08:10 | Diagnostic Imaging Report ---
EXAM: XR Chest, 1 View CLINICAL HISTORY: SOB TECHNIQUE: Frontal view of the chest. COMPARISON: September 21, 2019. FINDINGS: Stable tracheostomy tube. Cardiomediastinal silhouette is unchanged. Sternotomy wires and mediastinal clips. Low lung volumes. Slight interval improvement in previously noted bilateral infiltrates with interval decrease in pleural effusions. IMPRESSION: Slight interval improvement in aeration of the lungs.
--- NOTE | 2019-09-22 08:11 | Pulmonolgy Critical Care Note ---
Critical Care - Asmt/Plan Assessment/Plan: ASSESSMENT Acute on chronic hypoxemic respiratory failure, now on vent Tracheostomy status, s/p change to cuffed trach Sepsis Pulmonary edema pleural effusion worsening Pneumonia UTI CHF ? cardiorenal COPD Acute kidney injury and chronic kidney disease Hypertension Atrial fibrillation Moderate pulm HTN Moderate AR Dysphagia , feeding by G-tube Electrolyte abnormalities Anemia Toxic metabolic encephalopathy likely due to sepsis and ARF HTN PAF PLAN OF CARE ICU on vent AC trach changed 09/16 pm from uncuffed to cuffed Shiley#7 XLT CXR 09/16 -> -Worsening of right lung infiltrates and right effusion. tap on 09/17 not done, felt by IR not safe due to small amounts of pleural effusion ABG this am on high FiO2 80% noted; unable to down titrated FiO2 CXR 09/17 ->Improved aeration with decreased hazy bilateral opacities which may related toimproved airspace disease and/or decreased layering pleural fluid. however desaturated over night ABG 09/18 on 100% FiO2 with hypoxia stat VQ scan order, not done check lactate level-> 0.3 repeat rapid COVID 19 09/18 -> NGT PEEP increased to 7 ABG 09/19 -> no hypoxia CT chest w/out contrast: - Bilateral pleural effusions, right greater than left, with bilateral lower lobe consolidation or volume loss. -Ground-glass densities in the upper lobes bilaterally. This is not specific. -Tracheostomy. -Increased superior mediastinal density. Stability of adenopathy cannot be excluded. -Atherosclerotic change. -Gastrostomy. -Ascites. -Left renal stent with left hydronephrosis and renal atrophy. VQ scan -> low probability for PE CXR 09/19 no change ABG 09/19 with acidosis and hypoxia, PEEP increased to 12 CXR [address] worse with worsening R pl effusion, fup CXR this am may need to attempt another tap in am ABG for this am still acidosis, no hypoxia, will change settings to [phone] and taper O2 needs as tolerated trach care ,pulmonary toilet total rapid COVID 19 NGT x3 sedation with fentanyl gtt and Versed prn need diuresis or HD abx as per ID-Meropenem, Vanco SCX 8/3 + Proteus UCX 8/2 + Providencia BCX 8/2 Staph epidermidis, BCX 8/3 NGTD aspiration precautions venous Duplex BLE -> NGT DVT prophylaxis pulm toilet, Mucomyst was prior ordered to help in loosening secretions monitor volumes was on gentle IVF-> dc monitor renal parameters, lytes, correct lytes as needed , avoid nephrotoxics hypo Na resolved - per nephro management K replaced this am as per nephro s/ p Zaroxyline 09/19 s/p prior diuretic-Lasix ECHO with pEF , moderate pulm HTN and moderate AR BP management with current regimen of BB, Cardizem and Hydralazine, remains in SR monitor HH with goal to keep Hgb >7, heme on board on EPO supportive care pain management wound care bowel regimen thank you for a consult Critical Care - Objective Last 24 Hour Vital Signs Date Time Temp Pulse Resp B/P (MAP) Pulse Ox O2 Delivery O2 Flow Rate FiO2 09/22/19 07:12 62 18 Mechanical Ventilator 100 09/22/19 06:00 63 13 147/59 (88) 100 09/22/19 06:00 13 152/55 Mechanical Ventilator 100 09/22/19 05:34 160/63 09/22/19 05:34 65 160/63 09/22/19 05:00 18 160/63 Mechanical Ventilator 100 09/22/19 05:00 64 20 169/66 (100) 100 09/22/19 04:00 Mechanical Ventilator 09/22/19 04:00 64 16 153/71 (98) 100 09/22/19 04:00 18 151/63 Mechanical Ventilator 100 09/22/19 04:00 67 09/22/19 04:00 100 09/22/19 03:45 64 17 151/63 (92) 100 09/22/19 03:30 63 18 149/64 (92) 100 09/22/19 03:15 63 18 154/65 (94) 100 09/22/19 03:00 63 14 150/69 (96) 98 09/22/19 03:00 18 154/65 Mechanical Ventilator 100 09/22/19 03:00 63 15 100 09/22/19 02:45 62 16 147/66 (93) 98 09/22/19 02:30 62 14 154/64 (94) 98 09/22/19 02:00 62 14 154/64 (94) 98 09/22/19 02:00 14 152/66 Mechanical Ventilator 100 09/22/19 01:00 14 152/65 Mechanical Ventilator 100 09/22/19 01:00 58 18 152/65 (94) 95 09/22/19 00:57 59 23 99 Mechanical Ventilator 100 62 23 100 09/22/19 00:00 Mechanical Ventilator 09/22/19 00:00 100 09/22/19 00:00 75 09/22/19 00:00 16 138/60 Mechanical Ventilator 100 09/22/19 00:00 98.6 58 16 138/60 (86) 97 09/21/19 23:21 60 26 100 09/21/19 23:12 143/66 09/21/19 23:12 62 143/66 09/21/19 23:00 17 137/62 Mechanical Ventilator 100 09/21/19 23:00 62 16 143/66 (91) 99 09/21/19 22:00 60 29 142/65 (90) 97 09/21/19 22:00 25 159/86 Mechanical Ventilator 100 09/21/19 21:00 27 159/86 Mechanical Ventilator 100 09/21/19 21:00 65 30 167/64 (98) 99 09/21/19 20:45 30 146/71 Mechanical Ventilator 100 09/21/19 20:30 30 176/68 Mechanical Ventilator 100 09/21/19 20:11 70 164/63 09/21/19 20:00 Mechanical Ventilator 09/21/19 20:00 74 09/21/19 20:00 98 09/21/19 20:00 100 09/21/19 20:00 98.5 73 27 164/63 (96) 98 09/21/19 19:25 63 22 96 Mechanical Ventilator 100 65 23 100 09/21/19 19:00 64 22 146/54 (84) 98 09/21/19 19:00 20 146/54 Mechanical Ventilator 100 09/21/19 18:30 65 22 135/57 (83) 98 09/21/19 18:00 67 22 146/59 (88) 100 09/21/19 18:00 20 146/59 Mechanical Ventilator 100 09/21/19 17:49 143/59 09/21/19 17:49 69 143/59 09/21/19 17:30 67 22 143/57 (85) 98 09/21/19 17:03 68 23 100 09/21/19 17:00 30 147/60 Mechanical Ventilator 100 09/21/19 17:00 68 24 147/60 (89) 96 09/21/19 16:30 66 25 150/56 (87) 93 09/21/19 16:00 65 09/21/19 16:00 100 09/21/19 16:00 99.1 65 26 157/56 (89) 93 09/21/19 16:00 19 157/56 Mechanical Ventilator 100 09/21/19 16:00 Mechanical Ventilator 09/21/19 15:30 63 23 138/57 (84) 94 09/21/19 15:05 63 21 100 09/21/19 15:00 62 19 133/53 (79) 94 09/21/19 15:00 19 133/53 Mechanical Ventilator 100 09/21/19 14:30 62 20 133/53 (79) 94 09/21/19 14:00 19 128/50 Mechanical Ventilator 100 09/21/19 14:00 61 18 131/53 (79) 94 09/21/19 13:30 63 20 130/51 (77) 95 09/21/19 13:00 19 138/55 Mechanical Ventilator 100 09/21/19 13:00 64 23 153/60 (91) 96 09/21/19 13:00 64 21 96 Mechanical Ventilator 100 65 23 100 09/21/19 12:44 152/60 09/21/19 12:44 64 152/60 09/21/19 12:30 63 22 152/60 (90) 96 09/21/19 12:00 100 09/21/19 12:00 98.7 64 23 153/58 (89) 95 09/21/19 12:00 64 09/21/19 12:00 23 142/56 Mechanical Ventilator 100 09/21/19 12:00 Mechanical Ventilator 09/21/19 11:30 64 22 151/55 (87) 95 09/21/19 11:00 30 149/59 Mechanical Ventilator 100 09/21/19 11:00 64 27 157/51 (86) 92 09/21/19 10:36 64 27 89 Mechanical Ventilator 100 64 31 100 09/21/19 10:00 40 152/56 Mechanical Ventilator 100 09/21/19 10:00 64 40 152/56 (88) 83 09/21/19 09:53 39 162/61 Mechanical Ventilator 100 09/21/19 09:00 66 43 162/61 (94) 90 09/21/19 08:35 74 45 100 09/21/19 08:07 89 195/71 Objective: General Appearance: no apparent distress, bedridden middle age chronically ill looking female on vent AC 450-12-100% PEEP 12, sedated Lines, tubes and drains: peripheral HEENT: normocephalic, atraumatic, anicteric, status post trach - Shiley #7 cuffed XLT, secretions small amount, velasco color , thick consistency Respiratory/Chest: no accessory muscle use, few scattered rhonchi bilaterally , tachypneic Cardiovascular/Chest: normal rate, regular rhythm - SR on tele Abdomen: normal bowel sounds, non tender, soft, G tube Genitourinary/Rectal: [place] Extremities: no edema Skin Exam: warm/dry, multiple tattoos all over the body Neurologic: abnormal gait, restless Musculoskeletal: atrophy - BLE Micro: Microbiology Date/Time Source Procedure Growth Status 09/19/19 10:00 Nasopharynx SARS-CoV-2 RdRp Gene Assay - Final Complete Critical Care - Subjective ROS Limited/Unobtainable: Yes Interval Events: remains on high FiO2 100 with PEEP12 ABG still with acidosis, hypoxia resolved now on fentanyl gtt and Versed prn PEEP increased to 12 CXR 09/20 worse no labs for this am but leuk resolved yesterday Condition: critical EKG Rhythm: Sinus Rhythm FI02: 100 Vent Support Breath Rate: 12 Vent Support Mode: AC Vent Tidal Volume: 450 Sputum Amount: Small PEEP: 12.0 PIP: 29 Drips: Fentanyl 80 mcg/ht Tube Feeding Amount: 40 I&O: Intake and Output 09/21/19 09/22/19 19:00 07:00 Intake Total 916.233 ml 778 ml Output Total 525 ml 380 ml Balance 391.233 ml 398 ml Intake Free Water 150 ml IV Total 156.233 ml 148 ml Tube Feeding 440 ml 480 ml Other 320 ml Output Urine Total 525 ml 380 ml CXR: CXR 09/20 1. Interval worsening bilateral lower lobe opacities, worse on the right. Left perihilar opacities similar and slightly improved right upper lobe opacity. 2. Worsening bilateral pleural effusions, worse on the right. Yara Castro [employer] Sep 22, 2019 08:11
[2019-09-22] MEDS: OLANZapine 2.5mg tab GT SCH (08:23)
[2019-09-22] MEDS: clonazePAM 0.5mg tab GT SCH ×2 (08:23→20:32)
[2019-09-22] MEDS: Meropenem 1 GM in NS 55 ML IVPB SCH ×2 (08:23→20:33)
[2019-09-22] MEDS: Pantoprazole Inj IVP SCH ×2 (08:23→20:32)
[2019-09-22] MEDS: Docusate 100mg/10ml Liq GT SCH ×3 (08:23→17:33)
[2019-09-22] MEDS: Metoprolol Tartrate 50mg tab GT SCH ×2 (08:24→20:32)
[2019-09-22] MEDS: Heparin 5000 units/ml inj SUBQ SCH ×2 (08:25→20:28)
[2019-09-22] MEDS ORDERED: NS 275ml ONE (08:36)
[2019-09-22 09:29] LABS: ANION GAP 12 mmol/L (5-15); BLOOD UREA NITROGEN 153 mg/dL (7-18); CALCIUM 9.1 MG/DL (8.5-10.1); CARBON DIOXIDE 19 MMOL/L (21-32); CHLORIDE 110 MMOL/L (98-107); CREATININE 2.6 MG/DL (0.55-1.30); POTASSIUM 5.2 MMOL/L (3.5-5.1); SODIUM 141 MMOL/L (136-145)
[2019-09-22 09:31] LABS: HEMATOCRIT 24.6 % (37.0-47.0); HEMOGLOBIN 7.7 G/DL (12.0-16.0); MEAN CORPUSCULAR VOLUME 100 FL (80-99); PLATELET COUNT 269 K/UL (150-450); RED BLOOD COUNT 2.45 M/UL (4.20-5.40); RED CELL DISTRIBUTION WIDTH 16.1 % (11.6-14.8); WHITE BLOOD COUNT 15.9 K/UL (4.8-10.8)
[2019-09-22] MEDS: fentaNYL 2500mcg/NS 250ml 250 ML IV SCH (10:02)
--- NOTE | 2019-09-22 10:11 | Infectious Diseases Prog Note ---
Assessment/Plan Assessment: Acute hypoxic resp failure- now on MV Fio2 80%> 90% 09/17> 100% 09/19- r.o PE Pneumonia- COVID19 neg x3 -09/18 rapid COVID PCR neg CT chest: Markedly suboptimal examination due to lack of IV contrast material. Bilateral pleural effusions, right greater than left, with bilateral lower lobe consolidation or volume loss. Groundglass densities in the upper lobes bilaterally. This is not specific. Tracheostomy. Increased superior mediastinal density. Stability of adenopathy cannot be excluded. Atherosclerotic change. Gastrostomy. Ascites. Left renal stent with left hydronephrosis and renal atrophy. -09/17 Chest US: Trace right and small left pleural effusions. No safe window identified for bedside thoracentesis. Note that the majority of the left pleural effusion is subpulmonic. -09/16 CXR: Worsening of right lung infiltrates and right effusion. V. duplex: NO DVT D-dimer elevated -09/15 Rapid COVID pCR neg sp cx ESBL P. mirablis -09/14 CXR: Bilateral airspace opacities, preferentially involving the right lung, consistent with multifocal infiltrate. Trace bilateral pleural effusions. No pneumothorax. rapid COVID PCR neg Gram positive bacteremia- real vs contaminant; does have hx of infected PPM- could be a possibility- ro endocarditis -09/14 Bcx 03/19 S. epidermis; 09/15 Bcx NTD 2d echo: no vegetations seen UTI -09/14 u/a wbc tnct, nit neg, leuk +3; ucx >100k MDR P. stuarti (S Ceftriaxone , Meropenem) Afebrile Leukocytosis, mild; fluctuates bt 12-13 JAVIER on CKD, improved -Renal US: Limited exam due to abdominal ascites and shadowing from bowel gas. CT recommended for more sensitive evaluation. Moderate right hydronephrosis. Increased renal parenchymal echogenicity suggesting intrinsic/ medical renal disease. Question indwelling left ureteral stent versus artifact. Bladder not visualized. 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 epi-11/2018, sp > 6weeks IV vancomycin -11/27 SP ABBIE: no evidence for vegetation on any of the valves -11/26/18 SP PPM removal: -OR findings:The fibrous capsule enclosing the generator was then opened and there was a [id number] amount of yellowish fluid drainage. The generator was then removed.Atrial and ventricular leads were detached. The necrotic tissue of the pocket was then removed and the pocket was flushed with an antibiotic solution. -Capsule, wound tissue and lead tip cx: Neg -2d echo: no vegetation seen -US chest: 4.6 x 3.4 x 0.9 cm hypoechoic/anechoic area overlying left chest pacemaker power pack. This could represent either a discrete fluid collection or a focal area of very edematous tissue. Infected fluid pocket also possible. -11/18 Bcx 3/4 S. epi; 11/20 Bcx neg; 11/24 Bcx Neg; 11/27 Bcx Neg Hx of PNA -11/2019 sp cx PsA (arnett S), ABC (I Ceftriaxone; otherwise negative) - -sp cx MRSA, ABC (I Ceftriaxone; otherwise S) Afib HTN dysphagia sp GT aortic dissection s/p repair 2017, s/p PPM Parkinson's Disease schizophrenia anxiety COPD chronic resp failure s/p trach hx of tracheal bleeding [place] resident ([facility]) Plan: -Continue Meropenem #6 -Continue IV Vancomycin #7 - May D/C tomorrow if Leukocytosis decrease back to normal - 09/22/19 SP -09/16 SP Cefepime #3, Levaquin #3 -f/u cx -Monitor CBC/CMP, temperatures -f/u Bcx x2 -COVID19 neg x3 -ICU/ trach/ peg care -aspiration precautions Thank you for this consultation. Will continue to follow along with you. Discussed with RN. Subjective Allergies: Coded Allergies: No Known Allergies (Unverified , 10/10/17) Afebrile In ICU on Vent 100% O2 WBCS increase again to day Objective Last 24 Hour Vital Signs Date Time Temp Pulse Resp B/P (MAP) Pulse Ox O2 Delivery O2 Flow Rate FiO2 09/22/19 10:02 28 139/47 Mechanical Ventilator 100 09/22/19 08:35 72 24 100 09/22/19 08:30 100 09/22/19 08:24 65 162/57 09/22/19 08:00 98.0 69 15 162/60 (94) 100 09/22/19 08:00 Mechanical Ventilator 09/22/19 08:00 100 09/22/19 07:12 62 18 100 Mechanical Ventilator 100 68 24 09/22/19 07:00 62 13 149/56 (87) 100 09/22/19 06:00 63 13 147/59 (88) 100 09/22/19 06:00 13 152/55 Mechanical Ventilator 100 09/22/19 05:34 160/63 09/22/19 05:34 65 160/63 09/22/19 05:00 18 160/63 Mechanical Ventilator 100 09/22/19 05:00 64 20 169/66 (100) 100 09/22/19 04:00 Mechanical Ventilator 09/22/19 04:00 64 16 153/71 (98) 100 09/22/19 04:00 18 151/63 Mechanical Ventilator 100 09/22/19 04:00 67 09/22/19 04:00 100 09/22/19 03:45 64 17 151/63 (92) 100 09/22/19 03:30 63 18 149/64 (92) 100 09/22/19 03:15 63 18 154/65 (94) 100 09/22/19 03:00 63 14 150/69 (96) 98 09/22/19 03:00 18 154/65 Mechanical Ventilator 100 09/22/19 03:00 63 15 100 09/22/19 02:45 62 16 147/66 (93) 98 09/22/19 02:30 62 14 154/64 (94) 98 09/22/19 02:00 62 14 154/64 (94) 98 09/22/19 02:00 14 152/66 Mechanical Ventilator 100 09/22/19 01:00 14 152/65 Mechanical Ventilator 100 09/22/19 01:00 58 18 152/65 (94) 95 09/22/19 00:57 59 23 99 Mechanical Ventilator 100 62 23 100 09/22/19 00:00 Mechanical Ventilator 09/22/19 00:00 100 09/22/19 00:00 75 09/22/19 00:00 16 138/60 Mechanical Ventilator 100 09/22/19 00:00 98.6 58 16 138/60 (86) 97 09/21/19 23:21 60 26 100 09/21/19 23:12 143/66 09/21/19 23:12 62 143/66 09/21/19 23:00 17 137/62 Mechanical Ventilator 100 09/21/19 23:00 62 16 143/66 (91) 99 09/21/19 22:00 60 29 142/65 (90) 97 09/21/19 22:00 25 159/86 Mechanical Ventilator 100 09/21/19 21:00 27 159/86 Mechanical Ventilator 100 09/21/19 21:00 65 30 167/64 (98) 99 09/21/19 20:45 30 146/71 Mechanical Ventilator 100 09/21/19 20:30 30 176/68 Mechanical Ventilator 100 09/21/19 20:11 70 164/63 09/21/19 20:00 Mechanical Ventilator 09/21/19 20:00 74 09/21/19 20:00 98 09/21/19 20:00 100 09/21/19 20:00 98.5 73 27 164/63 (96) 98 09/21/19 19:25 63 22 96 Mechanical Ventilator 100 65 23 100 09/21/19 19:00 64 22 146/54 (84) 98 09/21/19 19:00 20 146/54 Mechanical Ventilator 100 09/21/19 18:30 65 22 135/57 (83) 98 09/21/19 18:00 67 22 146/59 (88) 100 09/21/19 18:00 20 146/59 Mechanical Ventilator 100 09/21/19 17:49 143/59 09/21/19 17:49 69 143/59 09/21/19 17:30 67 22 143/57 (85) 98 09/21/19 17:03 68 23 100 09/21/19 17:00 30 147/60 Mechanical Ventilator 100 09/21/19 17:00 68 24 147/60 (89) 96 09/21/19 16:30 66 25 150/56 (87) 93 09/21/19 16:00 65 09/21/19 16:00 100 09/21/19 16:00 99.1 65 26 157/56 (89) 93 09/21/19 16:00 19 157/56 Mechanical Ventilator 100 09/21/19 16:00 Mechanical Ventilator 09/21/19 15:30 63 23 138/57 (84) 94 09/21/19 15:05 63 21 100 09/21/19 15:00 62 19 133/53 (79) 94 09/21/19 15:00 19 133/53 Mechanical Ventilator 100 09/21/19 14:30 62 20 133/53 (79) 94 8/8/20 14:00 19 128/50 Mechanical Ventilator 100 09/21/19 14:00 61 18 131/53 (79) 94 09/21/19 13:30 63 20 130/51 (77) 95 09/21/19 13:00 19 138/55 Mechanical Ventilator 100 09/21/19 13:00 64 23 153/60 (91) 96 09/21/19 13:00 64 21 96 Mechanical Ventilator 100 65 23 100 09/21/19 12:44 152/60 09/21/19 12:44 64 152/60 09/21/19 12:30 63 22 152/60 (90) 96 09/21/19 12:00 100 09/21/19 12:00 98.7 64 23 153/58 (89) 95 09/21/19 12:00 64 09/21/19 12:00 23 142/56 Mechanical Ventilator 100 09/21/19 12:00 Mechanical Ventilator 09/21/19 11:30 64 22 151/55 (87) 95 09/21/19 11:00 30 149/59 Mechanical Ventilator 100 09/21/19 11:00 64 27 157/51 (86) 92 09/21/19 10:36 64 27 89 Mechanical Ventilator 100 64 31 100 Height (Feet): 5 Height (Inches): 5.00 Weight (Pounds): 137 Gen: On vent HEENT; NCAT, Intubated Respiratory: Equal rise and fall, RRR Gastrointestinal: Soft ND Skin: No rash on exposed skin Laboratory Tests Test 09/21/19 10:36 09/22/19 07:16 09/22/19 08:45 Arterial Blood pH 7.303 (7.350-7.450) 7.209 (7.350-7.450) Arterial Blood Partial Pressure CO2 32.1 mmHg (35.0-45.0) L 41.1 mmHg (35.0-45.0) Arterial Blood Partial Pressure O2 55.9 mmHg (75.0-100.0) L 98.9 mmHg (75.0-100.0) Arterial Blood HCO3 15.5 mmol/L (22.0-26.0) *L 16.0 mmol/L (22.0-26.0) *L Arterial Blood Oxygen Saturation 87.2 % (95-100) *L 96.8 % (95-100) Arterial Blood Base Excess -9.8 (-2-2) *L -11.1 (-2-2) *L Rojas Test Positive Positive White Blood Count 15.9 K/UL (4.8-10.8) #H Red Blood Count 2.45 M/UL (4.20-5.40) L Hemoglobin 7.7 G/DL (12.0-16.0) L Hematocrit 24.6 % (37.0-47.0) L Mean Corpuscular Volume 100 FL (80-99) H Mean Corpuscular Hemoglobin 31.6 PG (27.0-31.0) H Mean Corpuscular Hemoglobin Concent 31.5 G/DL (32.0-36.0) L Red Cell Distribution Width 16.1 % (11.6-14.8) H Platelet Count 269 K/UL (150-450) Mean Platelet Volume 5.0 FL (6.5-10.1) L Neutrophils (%) (Auto) % (45.0-75.0) Lymphocytes (%) (Auto) % (20.0-45.0) Monocytes (%) (Auto) % (1.0-10.0) Eosinophils (%) (Auto) % (0.0-3.0) Basophils (%) (Auto) % (0.0-2.0) Neutrophils % (Manual) Pending Lymphocytes % (Manual) Pending Platelet Estimate Pending Platelet Morphology Pending Sodium Level 141 MMOL/L (136-145) Potassium Level 5.2 MMOL/L (3.5-5.1) H Chloride Level 110 MMOL/L (98-107) H Carbon Dioxide Level 19 MMOL/L (21-32) L Anion Gap 12 mmol/L (5-15) Blood Urea Nitrogen 153 mg/dL (7-18) H Creatinine 2.6 MG/DL (0.55-1.30) H Estimat Glomerular Filtration Rate 19.7 mL/min (>60) Glucose Level 98 MG/DL (74-106) Calcium Level 9.1 MG/DL (8.5-10.1) Current Medications Medications (Trade) Dose Ordered Sig/Penny Route PRN Reason Start Time Stop Time Status Last Admin Dose Admin Acetaminophen/ Hydrocodone Bitart ([place] 10/325) 1 tab Q6H PRN GT For Pain 8/8/20 13:30 09/26/19 13:29 09/21/19 21:34 Acetylcysteine (Mucomyst) 200 mg Q6HRT HHN 09/18/19 19:00 12/17/19 18:59 09/22/19 07:12 Albuterol/ Ipratropium (Albuterol/ Ipratropium) 3 ml Q6HRT HHN 09/21/19 13:00 09/24/19 12:59 09/22/19 07:12 Clonazepam (KlonoPIN) 0.5 mg Q12HR GT 09/21/19 21:00 09/26/19 08:59 09/22/19 08:23 Diltiazem HCl (Cardizem Tab) 60 mg EVERY 6 HOURS GT 09/17/19 12:00 10/15/19 11:59 09/22/19 05:34 Docusate Sodium (Colace) 100 mg TID GT 09/17/19 13:00 10/15/19 08:59 09/22/19 08:23 Epoetin Gelacio (Epoetin Gelacio-EPBX(NON ESRD)) 10,000 unit MON-MON-MON SUBQ 09/18/19 21:00 12/15/19 20:59 09/20/19 20:05 Fentanyl Citrate 250 ml @ 0 mls/hr Q24H IV 09/21/19 09:30 12/20/19 09:29 09/22/19 10:02 Heparin Sodium (Porcine) (Heparin 5000 units/ml) 5,000 units EVERY 12 HOURS SUBQ 09/17/19 21:00 10/30/19 08:59 09/22/19 08:25 Hydralazine HCl (Apresoline) 10 mg Q4H PRN IV BP over 160 systolic 09/17/19 11:15 12/14/19 11:14 09/18/19 22:10 Hydralazine HCl (Apresoline) 50 mg Q6HR GT 09/17/19 12:00 12/15/19 17:59 09/22/19 05:34 Ipratropium Telephone (Atrovent) 500 mcg Q4H PRN HHN Shortness of Breath 09/21/19 13:30 09/26/19 13:29 Meropenem 1 gm/ Sodium Chloride 55 ml @ 110 mls/hr Q12HR IVPB 09/21/19 21:00 09/26/19 20:59 09/22/19 08:23 Metoprolol Tartrate (Lopressor) 50 mg EVERY 12 HOURS GT 09/17/19 21:00 12/14/19 08:59 09/22/19 08:24 Midazolam HCl (Versed 2mg/2ml vial) 1 mg Q4H PRN IVP For Anxiety 09/21/19 09:30 12/20/19 09:29 09/21/19 10:01 Olanzapine (ZyPREXA) 2.5 mg DAILY GT 09/18/19 09:00 10/30/19 08:59 09/22/19 08:23 Pantoprazole (Protonix) 40 mg EVERY 12 HOURS IVP 09/21/19 21:00 10/21/19 20:59 09/22/19 08:23 Potassium Chloride (K-Dur) 40 meq TWICE A DAY GT 09/20/19 18:00 12/19/19 17:59 09/22/19 08:23 Sertraline HCl (Zoloft) 100 mg BEDTIME GT 09/17/19 21:00 10/15/19 20:59 09/21/19 20:11 Vancomycin HCl (Vanco pharmacy to dose) 1 ea DAILY PRN MISC Per rx protocol 09/18/19 09:00 10/16/19 13:44 Deni Gilbert MD Sep 22, 2019 10:11
--- NOTE | 2019-09-22 12:46 | Nephrology Progress Note ---
Assessment/Plan Problem List: (1) JAVIER (acute kidney injury) (2) Renal failure (ARF), acute on chronic (3) Dehydration (4) Electrolyte imbalance (5) Anemia (6) Respiratory failure, acute and chronic (7) COPD with exacerbation Assessment Patient is presented with sepsis and pneumonia and UTI Patient has acute renal failure, possible underlying chronic kidney failure Severe anemia Electrolyte imbalances: Hyponatremia, hypo-kalemia Chronic respiratory failure, COPD exacerbation Plan September 21: Patient is being sedated. Labs reviewed. Potassium supplement discontinued. GFR 20. Continue per current treatment plan. Dialysis and ultrafiltration is a consideration. September 20: Patient periodically agitated. Labs reviewed. Creatinine 2.4. Medication reviewed. Continue per consultants. Calculated creatinine clearance 21. May need isolated ultrafiltration on dialysis. Will discuss with PMD. Meanwhile hemoglobin is lower, defer transfusion to PMD. September 19: DC IV fluid. Zaroxolyn via GT tube. Potassium supplement. Attempt to diurese. Chest CT as bilateral pleural effusion. If diuresis unsuccessful, will consider dialysis and ultrafiltration. September 18: Potassium supplement IV given. Hemoglobin stable. Patient remains full code. Continue per consultants. Previously: Potassium supplement IV Slow IV hydration Epogen subcu Adjust blood pressure medication IV fluid, rate adjusted Norman catheter, intake and output Monitor renal parameters Avoid nephrotoxic's Antibiotics Per orders 2D echocardiogram Kidney ultrasound Subjective ROS Limited/Unobtainable: Yes Objective Objective Last 24 Hour Vital Signs Date Time Temp Pulse Resp B/P (MAP) Pulse Ox O2 Delivery O2 Flow Rate FiO2 09/22/19 12:07 146/46 09/22/19 12:07 61 146/46 09/22/19 11:00 62 22 146/49 (81) 99 09/22/19 10:37 61 24 100 09/22/19 10:02 28 139/47 Mechanical Ventilator 100 09/22/19 10:01 28 139/47 Mechanical Ventilator 100 09/22/19 10:00 28 139/47 Mechanical Ventilator 100 09/22/19 10:00 60 26 145/52 (83) 98 09/22/19 09:00 64 26 153/54 (87) 100 09/22/19 09:00 28 151/54 Mechanical Ventilator 100 09/22/19 08:35 72 24 100 09/22/19 08:30 100 09/22/19 08:24 65 162/57 09/22/19 08:00 98.0 69 15 162/60 (94) 100 09/22/19 08:00 Mechanical Ventilator 09/22/19 08:00 15 162/57 Mechanical Ventilator 100 09/22/19 08:00 100 09/22/19 07:12 62 18 100 Mechanical Ventilator 100 68 24 09/22/19 07:00 62 13 149/56 (87) 100 09/22/19 07:00 13 158/59 Mechanical Ventilator 100 09/22/19 06:00 63 13 147/59 (88) 100 09/22/19 06:00 13 152/55 Mechanical Ventilator 100 09/22/19 05:34 160/63 09/22/19 05:34 65 160/63 09/22/19 05:00 18 160/63 Mechanical Ventilator 100 09/22/19 05:00 64 20 169/66 (100) 100 09/22/19 04:00 Mechanical Ventilator 09/22/19 04:00 64 16 153/71 (98) 100 09/22/19 04:00 18 151/63 Mechanical Ventilator 100 09/22/19 04:00 67 09/22/19 04:00 100 09/22/19 03:45 64 17 151/63 (92) 100 09/22/19 03:30 63 18 149/64 (92) 100 09/22/19 03:15 63 18 154/65 (94) 100 09/22/19 03:00 63 14 150/69 (96) 98 09/22/19 03:00 18 154/65 Mechanical Ventilator 100 09/22/19 03:00 63 15 100 09/22/19 02:45 62 16 147/66 (93) 98 09/22/19 02:30 62 14 154/64 (94) 98 09/22/19 02:00 62 14 154/64 (94) 98 09/22/19 02:00 14 152/66 Mechanical Ventilator 100 09/22/19 01:00 14 152/65 Mechanical Ventilator 100 09/22/19 01:00 58 18 152/65 (94) 95 09/22/19 00:57 59 23 99 Mechanical Ventilator 100 62 23 100 09/22/19 00:00 Mechanical Ventilator 09/22/19 00:00 100 09/22/19 00:00 75 09/22/19 00:00 16 138/60 Mechanical Ventilator 100 09/22/19 00:00 98.6 58 16 138/60 (86) 97 09/21/19 23:21 60 26 100 09/21/19 23:12 143/66 09/21/19 23:12 62 143/66 09/21/19 23:00 17 137/62 Mechanical Ventilator 100 09/21/19 23:00 62 16 143/66 (91) 99 09/21/19 22:00 60 29 142/65 (90) 97 09/21/19 22:00 25 159/86 Mechanical Ventilator 100 09/21/19 21:00 27 159/86 Mechanical Ventilator 100 09/21/19 21:00 65 30 167/64 (98) 99 09/21/19 20:45 30 146/71 Mechanical Ventilator 100 09/21/19 20:30 30 176/68 Mechanical Ventilator 100 09/21/19 20:11 70 164/63 09/21/19 20:00 Mechanical Ventilator 09/21/19 20:00 74 09/21/19 20:00 98 09/21/19 20:00 100 09/21/19 20:00 98.5 73 27 164/63 (96) 98 09/21/19 19:25 63 22 96 Mechanical Ventilator 100 65 23 100 09/21/19 19:00 64 22 146/54 (84) 98 09/21/19 19:00 20 146/54 Mechanical Ventilator 100 09/21/19 18:30 65 22 135/57 (83) 98 09/21/19 18:00 67 22 146/59 (88) 100 09/21/19 18:00 20 146/59 Mechanical Ventilator 100 09/21/19 17:49 143/59 09/21/19 17:49 69 143/59 09/21/19 17:30 67 22 143/57 (85) 98 09/21/19 17:03 68 23 100 09/21/19 17:00 30 147/60 Mechanical Ventilator 100 09/21/19 17:00 68 24 147/60 (89) 96 09/21/19 16:30 66 25 150/56 (87) 93 09/21/19 16:00 65 09/21/19 16:00 100 09/21/19 16:00 99.1 65 26 157/56 (89) 93 09/21/19 16:00 19 157/56 Mechanical Ventilator 100 09/21/19 16:00 Mechanical Ventilator 09/21/19 15:30 63 23 138/57 (84) 94 09/21/19 15:05 63 21 100 09/21/19 15:00 62 19 133/53 (79) 94 09/21/19 15:00 19 133/53 Mechanical Ventilator 100 09/21/19 14:30 62 20 133/53 (79) 94 09/21/19 14:00 19 128/50 Mechanical Ventilator 100 09/21/19 14:00 61 18 131/53 (79) 94 09/21/19 13:30 63 20 130/51 (77) 95 09/21/19 13:00 19 138/55 Mechanical Ventilator 100 09/21/19 13:00 64 23 153/60 (91) 96 09/21/19 13:00 64 21 96 Mechanical Ventilator 100 65 23 100 Intake and Output 09/21/19 09/22/19 19:00 07:00 Intake Total 916.233 ml 786 ml Output Total 525 ml 380 ml Balance 391.233 ml 406 ml Intake Free Water 150 ml IV Total 156.233 ml 156 ml Tube Feeding 440 ml 480 ml Other 320 ml Output Urine Total 525 ml 380 ml Laboratory Tests 09/22/19 07:16: Arterial Blood pH 7.209*L, Arterial Blood Partial Pressure CO2 41.1, Arterial Blood Partial Pressure O2 98.9, Arterial Blood HCO3 16.0*L, Arterial Blood Oxygen Saturation 96.8, Arterial Blood Base Excess -11.1*L, Rojas Test Positive 09/22/19 08:45: White Blood Count 15.9#H, Red Blood Count 2.45L, Hemoglobin 7.7L, Hematocrit 24.6L, Mean Corpuscular Volume 100H, Mean Corpuscular Hemoglobin 31.6H, Mean Corpuscular Hemoglobin Concent 31.5L, Red Cell Distribution Width 16.1H, Platelet Count 269, Mean Platelet Volume 5.0L, Neutrophils (%) (Auto) , Lymphocytes (%) (Auto) , Monocytes (%) (Auto) , Eosinophils (%) (Auto) , Basophils (%) (Auto) , Differential Total Cells Counted 100, Neutrophils % ( Manual) 78H, Lymphocytes % (Manual) 11L, Monocytes % (Manual) 8, Eosinophils % ( Manual) 3, Basophils % (Manual) 0, Band Neutrophils 0, Platelet Estimate Adequate, Platelet Morphology Normal, Polychromasia 1+, Hypochromasia 1+, Anisocytosis 1+, Macrocytosis 1+, Sodium Level 141, Potassium Level 5.2H, Chloride Level 110H, Carbon Dioxide Level 19L, Anion Gap 12, Blood Urea Nitrogen 153H, Creatinine 2.6H, Estimat Glomerular Filtration Rate 19.7, Glucose Level 98, Calcium Level 9.1 Height (Feet): 5 Height (Inches): 5.00 Weight (Pounds): 137 General Appearance: no apparent distress EENT: other - Trach to vent Cardiovascular: tachycardia Respiratory/Chest: decreased breath sounds Abdomen: distended Johnny Houston MD Sep 22, 2019 12:46
--- NOTE | 2019-09-22 13:06 | Surgery Progress Note ---
Surgery Progress Note Subjective Additional Comments more comfortable saturations improved vent seetings increased 100% 10peep Objective Last 24 Hour Vital Signs Date Time Temp Pulse Resp B/P (MAP) Pulse Ox O2 Delivery O2 Flow Rate FiO2 09/22/19 12:07 146/46 09/22/19 12:07 61 146/46 09/22/19 11:00 62 22 146/49 (81) 99 09/22/19 10:37 61 24 100 09/22/19 10:02 28 139/47 Mechanical Ventilator 100 09/22/19 10:01 28 139/47 Mechanical Ventilator 100 09/22/19 10:00 28 139/47 Mechanical Ventilator 100 09/22/19 10:00 60 26 145/52 (83) 98 09/22/19 09:00 64 26 153/54 (87) 100 09/22/19 09:00 28 151/54 Mechanical Ventilator 100 09/22/19 08:35 72 24 100 09/22/19 08:30 100 09/22/19 08:24 65 162/57 09/22/19 08:00 98.0 69 15 162/60 (94) 100 09/22/19 08:00 Mechanical Ventilator 09/22/19 08:00 15 162/57 Mechanical Ventilator 100 09/22/19 08:00 100 09/22/19 07:12 62 18 100 Mechanical Ventilator 100 68 24 09/22/19 07:00 62 13 149/56 (87) 100 09/22/19 07:00 13 158/59 Mechanical Ventilator 100 09/22/19 06:00 63 13 147/59 (88) 100 09/22/19 06:00 13 152/55 Mechanical Ventilator 100 09/22/19 05:34 160/63 09/22/19 05:34 65 160/63 09/22/19 05:00 18 160/63 Mechanical Ventilator 100 09/22/19 05:00 64 20 169/66 (100) 100 09/22/19 04:00 Mechanical Ventilator 09/22/19 04:00 64 16 153/71 (98) 100 09/22/19 04:00 18 151/63 Mechanical Ventilator 100 09/22/19 04:00 67 09/22/19 04:00 100 09/22/19 03:45 64 17 151/63 (92) 100 09/22/19 03:30 63 18 149/64 (92) 100 09/22/19 03:15 63 18 154/65 (94) 100 09/22/19 03:00 63 14 150/69 (96) 98 09/22/19 03:00 18 154/65 Mechanical Ventilator 100 09/22/19 03:00 63 15 100 09/22/19 02:45 62 16 147/66 (93) 98 09/22/19 02:30 62 14 154/64 (94) 98 09/22/19 02:00 62 14 154/64 (94) 98 09/22/19 02:00 14 152/66 Mechanical Ventilator 100 09/22/19 01:00 14 152/65 Mechanical Ventilator 100 09/22/19 01:00 58 18 152/65 (94) 95 09/22/19 00:57 59 23 99 Mechanical Ventilator 100 62 23 100 09/22/19 00:00 Mechanical Ventilator 09/22/19 00:00 100 09/22/19 00:00 75 09/22/19 00:00 16 138/60 Mechanical Ventilator 100 09/22/19 00:00 98.6 58 16 138/60 (86) 97 09/21/19 23:21 60 26 100 09/21/19 23:12 143/66 09/21/19 23:12 62 143/66 09/21/19 23:00 17 137/62 Mechanical Ventilator 100 09/21/19 23:00 62 16 143/66 (91) 99 09/21/19 22:00 60 29 142/65 (90) 97 09/21/19 22:00 25 159/86 Mechanical Ventilator 100 09/21/19 21:00 27 159/86 Mechanical Ventilator 100 09/21/19 21:00 65 30 167/64 (98) 99 09/21/19 20:45 30 146/71 Mechanical Ventilator 100 09/21/19 20:30 30 176/68 Mechanical Ventilator 100 09/21/19 20:11 70 164/63 09/21/19 20:00 Mechanical Ventilator 09/21/19 20:00 74 09/21/19 20:00 98 09/21/19 20:00 100 09/21/19 20:00 98.5 73 27 164/63 (96) 98 09/21/19 19:25 63 22 96 Mechanical Ventilator 100 65 23 100 09/21/19 19:00 64 22 146/54 (84) 98 09/21/19 19:00 20 146/54 Mechanical Ventilator 100 09/21/19 18:30 65 22 135/57 (83) 98 09/21/19 18:00 67 22 146/59 (88) 100 09/21/19 18:00 20 146/59 Mechanical Ventilator 100 09/21/19 17:49 143/59 09/21/19 17:49 69 143/59 09/21/19 17:30 67 22 143/57 (85) 98 09/21/19 17:03 68 23 100 09/21/19 17:00 30 147/60 Mechanical Ventilator 100 09/21/19 17:00 68 24 147/60 (89) 96 09/21/19 16:30 66 25 150/56 (87) 93 09/21/19 16:00 65 09/21/19 16:00 100 09/21/19 16:00 99.1 65 26 157/56 (89) 93 09/21/19 16:00 19 157/56 Mechanical Ventilator 100 09/21/19 16:00 Mechanical Ventilator 09/21/19 15:30 63 23 138/57 (84) 94 09/21/19 15:05 63 21 100 09/21/19 15:00 62 19 133/53 (79) 94 09/21/19 15:00 19 133/53 Mechanical Ventilator 100 09/21/19 14:30 62 20 133/53 (79) 94 09/21/19 14:00 19 128/50 Mechanical Ventilator 100 09/21/19 14:00 61 18 131/53 (79) 94 09/21/19 13:30 63 20 130/51 (77) 95 I&O Intake and Output 09/21/19 09/22/19 19:00 07:00 Intake Total 916.233 ml 786 ml Output Total 525 ml 380 ml Balance 391.233 ml 406 ml Intake Free Water 150 ml IV Total 156.233 ml 156 ml Tube Feeding 440 ml 480 ml Other 320 ml Output Urine Total 525 ml 380 ml Cardiovascular: RSR Respiratory: decreased breath sounds Abdomen: soft, present bowel sounds Extremities: no cyanosis Laboratory Tests Test 09/22/19 07:16 09/22/19 08:45 Arterial Blood pH 7.209 (7.350-7.450) Arterial Blood Partial Pressure CO2 41.1 mmHg (35.0-45.0) Arterial Blood Partial Pressure O2 98.9 mmHg (75.0-100.0) Arterial Blood HCO3 16.0 mmol/L (22.0-26.0) *L Arterial Blood Oxygen Saturation 96.8 % (95-100) Arterial Blood Base Excess -11.1 (-2-2) *L Rojas Test Positive White Blood Count 15.9 K/UL (4.8-10.8) #H Red Blood Count 2.45 M/UL (4.20-5.40) L Hemoglobin 7.7 G/DL (12.0-16.0) L Hematocrit 24.6 % (37.0-47.0) L Mean Corpuscular Volume 100 FL (80-99) H Mean Corpuscular Hemoglobin 31.6 PG (27.0-31.0) H Mean Corpuscular Hemoglobin Concent 31.5 G/DL (32.0-36.0) L Red Cell Distribution Width 16.1 % (11.6-14.8) H Platelet Count 269 K/UL (150-450) Mean Platelet Volume 5.0 FL (6.5-10.1) L Neutrophils (%) (Auto) % (45.0-75.0) Lymphocytes (%) (Auto) % (20.0-45.0) Monocytes (%) (Auto) % (1.0-10.0) Eosinophils (%) (Auto) % (0.0-3.0) Basophils (%) (Auto) % (0.0-2.0) Differential Total Cells Counted 100 Neutrophils % (Manual) 78 % (45-75) H Lymphocytes % (Manual) 11 % (20-45) L Monocytes % (Manual) 8 % (1-10) Eosinophils % (Manual) 3 % (0-3) Basophils % (Manual) 0 % (0-2) Band Neutrophils 0 % (0-8) Platelet Estimate Adequate Platelet Morphology Normal Polychromasia 1+ Hypochromasia 1+ Anisocytosis 1+ Macrocytosis 1+ Sodium Level 141 MMOL/L (136-145) Potassium Level 5.2 MMOL/L (3.5-5.1) H Chloride Level 110 MMOL/L (98-107) H Carbon Dioxide Level 19 MMOL/L (21-32) L Anion Gap 12 mmol/L (5-15) Blood Urea Nitrogen 153 mg/dL (7-18) H Creatinine 2.6 MG/DL (0.55-1.30) H Estimat Glomerular Filtration Rate 19.7 mL/min (>60) Glucose Level 98 MG/DL (74-106) Calcium Level 9.1 MG/DL (8.5-10.1) Plan Problems: (1) Anemia (2) Proteinuria (3) UTI (urinary tract infection) (4) ARF (acute renal failure) (5) ACS (acute coronary syndrome) (6) Respiratory failure, acute and chronic (7) HCAP (healthcare-associated pneumonia) (8) Abrasion of lip, initial encounter (9) COPD with exacerbation (10) Hypokalemia (11) Sepsis Assessment & Plan: Leukocytosis, anemia, abnormal labs. Renal insufficiency potentially dehydrated Abnormal LFTs alk phos elevated Urine noted significant bacteria likely UTI etiology Wound stable still requiring local care IV antibiotics per infectious disease Discussed with edi architect Dr. Berkowitz air mattress turn q2h nutritional tf will follow with recs thank you CT noted pending VQ scan - noted poor study low prob PE work respiratory increasing needs sedation (12) Chronic respiratory failure (13) Ascites (14) Bacteremia (15) Hypernatremia (16) Pleural effusion (17) Pacemaker (18) Aortic dissection, thoracic (19) Tracheostomy in place Assessment & Plan: trach stable no bleeding currently likely tongue etiology of mild oozing currently hemostatic without trauma (20) Feeding by G-tube Assessment & Plan: okay to resume tube feeds via g tube patent and functional dressings okay DAILY ESTIMATED NEEDS: Needs based on Pulmonary, wound 49kg 30-35 kcals/kg 2986-9205 total kcals 1.25-2 g protein/kg 61-98 g total protein Fluid per MD NUTRITION DIAGNOSIS: * Swallowing difficulty R/T dysphagia, respiratory status as evidenced by vent dep via T-collar, GT Dep. (CURRENT TF: Nepro @45ml/hr x 24 hrs) ENTERAL NUTRITION RECOMMENDATIONS: Nepro @ 40ml/hr x 24 hrs to provide 960ml, 1728kcal, 78g prot, 698ml free water * Rec LOWER current rate to 40ml/hr for 24 hrs run. 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 Base of wound is granular with bone exposure at base of sacrococcygeal.(L)10.5cm x (W06.5cm x (D) 2.8cm , undermining 11-3 by 3.6cm @12 o'clock. small amt serosanguineous exudate noted . Montura epithelial along edges bordered by darker skin tone without erythema. Resolving Pressure injury L ischium. Base of wound is 95% pink epithelial ,5% noni at center base of wound. No exudate noted. Both heels are boggy with non-Blanching erythema. Tx.plan: Cleanse Sacral wound with Saline. Loosely pack with Hydrogel impregnated Kerlix. Apply Moisture Barrier Periwound. Cover with Optifoam drsg Daily and prn. Apply Moisture Barrier paste to L Ischium. Cover with Optifoam drsg. Changee very 3 days and prn. Apply Cavilon Skin Barrier to both heels. Cover each heel with Optifoam drsgs. Change every 7 days and prn. Reposition at least every 2hours or as tolerated. Off-load heels with pillow. APM/JENNIFER Mattress overlay. Lane Saavedra Sep 22, 2019 13:06
[2019-09-22] MEDS: Midazolam 2mg/2ml Inj IVP PRN (15:40)
[2019-09-22] MEDS: HYDROcodone/Acetamin 10/325 tab GT PRN (17:34)
[2019-09-22] MEDS: Sertraline 100mg tab GT SCH (20:32)
[2019-09-23] VITALS (45 sets, daily range): BP systolic 133–188; BP diastolic 44–77
[2019-09-23] MEDS: Albuterol/Ipratropium 3ml neb HHN SCH ×4 (01:51→18:42)
[2019-09-23] MEDS: Acetylcysteine 20% Soln 4ml HHN SCH ×4 (01:52→18:42)
[2019-09-23] MEDS: HYDROcodone/Acetamin 10/325 tab GT PRN (03:29)
[2019-09-23] MEDS: Midazolam 2mg/2ml Inj IVP PRN ×3 (03:42→15:45)
[2019-09-23 05:16] LABS: BASOPHILS % (AUTO) 0.3 % (0.0-2.0); EOSINOPHILS % (AUTO) 2.7 % (0.0-3.0); HEMATOCRIT 25.3 % (37.0-47.0); HEMOGLOBIN 8.1 G/DL (12.0-16.0); LYMPHOCYTES % (AUTO) 12.1 % (20.0-45.0); MEAN CORPUSCULAR VOLUME 101 FL (80-99); MONOCYTES % (AUTO) 4.1 % (1.0-10.0); NEUTROPHILS % (AUTO) 80.9 % (45.0-75.0); PLATELET COUNT 275 K/UL (150-450); RED BLOOD COUNT 2.51 M/UL (4.20-5.40); RED CELL DISTRIBUTION WIDTH 16.4 % (11.6-14.8); WHITE BLOOD COUNT 17.6 K/UL (4.8-10.8)
[2019-09-23] MEDS: HydrALAZINE 50mg tab GT SCH ×4 (05:33→23:01)
[2019-09-23] MEDS: dilTIAZem HCl 60mg tab GT SCH ×4 (05:33→23:02)
[2019-09-23 05:41] LABS: ALANINE AMINOTRANSFERASE 15 U/L (12-78); ALBUMIN 2.4 G/DL (3.4-5.0); ALBUMIN/GLOBULIN RATIO 0.5 (1.0-2.7); ALKALINE PHOSPHATASE 167 U/L (46-116); ANION GAP 13 mmol/L (5-15); ASPARTATE AMINO TRANSFERASE 22 U/L (15-37); BILIRUBIN,TOTAL 0.4 MG/DL (0.2-1.0); BLOOD UREA NITROGEN 147 mg/dL (7-18); CALCIUM 9.1 MG/DL (8.5-10.1); CARBON DIOXIDE 19 MMOL/L (21-32); CHLORIDE 112 MMOL/L (98-107); CREATININE 2.8 MG/DL (0.55-1.30); POTASSIUM 5.5 MMOL/L (3.5-5.1); SODIUM 143 MMOL/L (136-145)
[2019-09-23 05:42] LABS: PHOSPHORUS 3.9 MG/DL (2.5-4.9)
[2019-09-23] MEDS: fentaNYL 2500mcg/NS 250ml 250 ML IV SCH ×2 (05:47→18:00)
[2019-09-23] MEDS ORDERED: Vancomycin 500mg/D5W 110ml IVPB SCH ×4 (06:00→08:00)
[2019-09-23] MEDS ORDERED: Sodium Polystyrene Sulfonate 15gm Powder GT SCH (08:45)
[2019-09-23] MEDS: Meropenem 1 GM in NS 55 ML IVPB SCH ×2 (08:55→20:01)
[2019-09-23] MEDS: clonazePAM 0.5mg tab GT SCH ×2 (08:55→20:03)
[2019-09-23] MEDS: Pantoprazole Inj IVP SCH ×2 (08:56→20:04)
[2019-09-23] MEDS: OLANZapine 2.5mg tab GT SCH (08:56)
[2019-09-23] MEDS: Metoprolol Tartrate 50mg tab GT SCH ×2 (08:56→20:05)
[2019-09-23] MEDS: Docusate 100mg/10ml Liq GT SCH ×3 (08:56→17:57)
[2019-09-23] MEDS: Heparin 5000 units/ml inj SUBQ SCH ×2 (08:57→20:03)
--- NOTE | 2019-09-23 09:52 | Pulmonolgy Critical Care Note ---
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 cardiorenal COPD Acute kidney injury and chronic kidney disease Hypertension Atrial fibrillation Moderate pulm HTN Moderate AR Dysphagia , feeding by G-tube Electrolyte abnormalities Anemia Toxic metabolic encephalopathy likely due to sepsis and ARF HTN PAF PLAN OF CARE ICU on vent AC trach changed 8/4 pm from uncuffed to cuffed Shiley#7 XLT repeat rapid COVID 19 09/18 -> NGT CT chest w/out contrast: - Bilateral pleural effusions, right greater than left, with bilateral lower lobe consolidation or volume loss. -Ground-glass densities in the upper lobes bilaterally. This is not specific. -Tracheostomy. -Increased superior mediastinal density. Stability of adenopathy cannot be excluded. -Atherosclerotic change. -Gastrostomy. -Ascites. -Left renal stent with left hydronephrosis and renal atrophy. VQ scan -> low probability for PE CXR 09/19 no change ABG 09/19 with acidosis and hypoxia, PEEP increased to 12 CXR 09/[address] worse with worsening R pl effusion, ABG 09/21 still acidosis, no hypoxia, settings changed to [id number] and taper O2 needs as tolerated ABG this am 09/22 noted, now on FiO2 90% CXR 09/21 ->Slight interval improvement in aeration of the lungs. trach care ,pulmonary toilet total rapid COVID 19 NGT x3 sedation with fentanyl gtt and Versed prn need diuresis or HD per nephro -> consideration for HD with UF abx as per ID-Meropenem, Vanco SCX 09/15 + Proteus UCX 09/14 + Providencia BCX 09/14 Staph epidermidis, BCX 09/15 NGTD aspiration precautions venous Duplex BLE -> NGT DVT prophylaxis pulm toilet, Mucomyst was prior ordered to help in loosening secretions monitor volumes was on gentle IVF-> dc monitor renal parameters, lytes, correct lytes as needed , avoid nephrotoxics hypo Na resolved - per nephro management K replaced this am as per nephro s/ p Zaroxyline 09/19 s/p prior diuretic-Lasix ECHO with pEF , moderate pulm HTN and moderate AR BP management with current regimen of BB, Cardizem and Hydralazine, remains in SR monitor HH with goal to keep Hgb >7, heme on board on EPO supportive care pain management wound care bowel regimen thank you for a consult Critical Care - Objective Last 24 Hour Vital Signs Date Time Temp Pulse Resp B/P (MAP) Pulse Ox O2 Delivery O2 Flow Rate FiO2 09/23/19 09:30 68 23 146/62 (90) 100 09/23/19 09:01 68 27 100 09/23/19 09:00 70 21 163/57 (92) 100 09/23/19 09:00 24 164/61 Mechanical Ventilator 100 09/23/19 08:56 69 160/51 09/23/19 08:30 70 22 153/61 (91) 100 09/23/19 08:00 100 09/23/19 08:00 24 138/47 Mechanical Ventilator 100 09/23/19 08:00 Mechanical Ventilator 09/23/19 08:00 100.0 68 24 156/56 (89) 96 09/23/19 07:30 68 24 150/53 (85) 97 09/23/19 07:24 68 26 97 Mechanical Ventilator 100 71 24 09/23/19 07:00 68 25 148/64 (92) 94 09/23/19 07:00 23 148/64 Mechanical Ventilator 100 09/23/19 06:00 70 27 159/60 (93) 92 09/23/19 06:00 23 153/57 Mechanical Ventilator 100 09/23/19 05:47 25 146/54 100 09/23/19 05:33 157/61 09/23/19 05:33 70 157/61 09/23/19 05:21 70 28 100 09/23/19 05:00 70 21 157/52 (87) 95 09/23/19 05:00 25 157/52 Mechanical Ventilator 100 09/23/19 04:45 69 25 147/52 (83) 95 09/23/19 04:30 69 23 159/56 (90) 97 09/23/19 04:15 70 24 155/54 (87) 98 09/23/19 04:00 74 09/23/19 04:00 100 09/23/19 04:00 32 188/66 Mechanical Ventilator 100 09/23/19 04:00 Mechanical Ventilator 09/23/19 04:00 98.6 72 24 164/57 (92) 96 09/23/19 03:45 76 24 161/63 (95) 90 09/23/19 03:41 72 28 100 09/23/19 03:30 77 28 188/66 (106) 91 09/23/19 03:00 24 160/65 Mechanical Ventilator 80 09/23/19 03:00 73 27 160/65 (96) 87 09/23/19 02:00 59 24 150/47 (81) 99 09/23/19 02:00 24 150/47 Mechanical Ventilator 80 09/23/19 01:52 60 24 100 Mechanical Ventilator 80 63 24 09/23/19 01:00 60 24 136/44 (74) 96 09/23/19 01:00 22 136/44 Mechanical Ventilator 80 09/23/19 00:00 98.2 59 24 133/45 (74) 96 09/23/19 00:00 62 09/23/19 00:00 Mechanical Ventilator 09/23/19 00:00 24 139/45 Mechanical Ventilator 80 09/23/19 00:00 80 09/22/19 23:50 146/47 09/22/19 23:50 63 146/47 09/22/19 23:35 63 24 80 09/22/19 23:00 24 146/47 Mechanical Ventilator 80 09/22/19 23:00 62 24 146/47 (80) 99 09/22/19 22:00 24 142/46 Mechanical Ventilator 80 09/22/19 22:00 98.1 61 24 147/47 (80) 99 09/22/19 21:04 63 24 80 09/22/19 21:00 64 24 148/49 (82) 99 09/22/19 21:00 24 148/49 Mechanical Ventilator 80 09/22/19 20:32 67 153/54 09/22/19 20:00 62 24 147/52 (83) 99 09/22/19 20:00 24 147/52 Mechanical Ventilator 80 09/22/19 20:00 65 09/22/19 20:00 Mechanical Ventilator 09/22/19 19:51 65 24 100 Mechanical Ventilator 80 64 24 09/22/19 19:00 66 28 144/60 (88) 95 09/22/19 19:00 27 144/51 Mechanical Ventilator 80 8/9/20 18:00 80 09/22/19 18:00 98.4 79 30 167/52 (90) 95 09/22/19 17:45 28 173/55 Mechanical Ventilator 70 09/22/19 17:32 170/80 09/22/19 17:32 82 170/80 09/22/19 17:30 30 174/76 Mechanical Ventilator 70 09/22/19 17:24 74 24 70 09/22/19 17:15 30 189/105 Mechanical Ventilator 70 09/22/19 17:00 77 28 178/64 (102) 93 09/22/19 17:00 24 170/80 Mechanical Ventilator 70 09/22/19 16:52 198/80 09/22/19 16:45 29 168/76 Mechanical Ventilator 70 09/22/19 16:30 77 22 188/67 (107) 95 09/22/19 16:30 26 198/80 Mechanical Ventilator 70 09/22/19 16:15 27 190/79 Mechanical Ventilator 70 09/22/19 16:00 99.9 75 22 166/55 (92) 95 09/22/19 16:00 24 200/72 Mechanical Ventilator 70 09/22/19 16:00 Mechanical Ventilator 09/22/19 16:00 86 09/22/19 16:00 70 09/22/19 15:30 68 24 157/49 (85) 96 09/22/19 15:17 68 25 70 09/22/19 15:00 25 184/60 Mechanical Ventilator 70 09/22/19 15:00 67 24 158/50 (86) 97 09/22/19 14:30 68 24 156/51 (86) 96 09/22/19 14:00 67 24 160/52 (88) 94 09/22/19 14:00 24 162/52 Mechanical Ventilator 60 09/22/19 13:40 60 09/22/19 13:30 66 24 166/51 (89) 95 09/22/19 13:24 66 25 100 Mechanical Ventilator 60 65 25 09/22/19 13:00 23 169/52 Mechanical Ventilator 100 09/22/19 13:00 63 24 154/52 (86) 100 09/22/19 12:30 62 24 148/47 (80) 100 09/22/19 12:07 146/46 09/22/19 12:07 61 146/46 09/22/19 12:00 Mechanical Ventilator 09/22/19 12:00 98.2 62 24 146/46 (79) 100 09/22/19 12:00 62 09/22/19 12:00 24 148/49 Mechanical Ventilator 100 09/22/19 12:00 100 09/22/19 11:30 62 24 146/46 (79) 99 09/22/19 11:00 62 22 146/49 (81) 99 09/22/19 11:00 24 141/46 Mechanical Ventilator 100 09/22/19 10:37 61 24 100 09/22/19 10:30 60 29 141/55 (83) 98 09/22/19 10:02 28 139/47 Mechanical Ventilator 100 09/22/19 10:01 28 139/47 Mechanical Ventilator 100 09/22/19 10:00 28 139/47 Mechanical Ventilator 100 09/22/19 10:00 60 26 145/52 (83) 98 Objective: General Appearance: no apparent distress, bedridden middle age chronically ill looking female on vent AC 500-24-90% PEEP 10, sedated Lines, tubes and drains: peripheral HEENT: normocephalic, atraumatic, anicteric, status post trach - Shiley #7 cuffed XLT, secretions small amount, velasco color , thick consistency Respiratory/Chest: no accessory muscle use, few scattered rhonchi bilaterally , tachypneic Cardiovascular/Chest: normal rate, regular rhythm - SR on tele Abdomen: normal bowel sounds, non tender, soft, G tube Genitourinary/Rectal: Norman Extremities: no edema Skin Exam: warm/dry, multiple tattoos all over the body Neurologic: abnormal gait, restless Musculoskeletal: atrophy - BLE Critical Care - Subjective ROS Limited/Unobtainable: Yes Interval Events: better on curretn vent settings still on Fentanyl gtt ABG noted, able to titrate down FiO2 to 90% remains afebrile, leuk with trend up creat up to 2.8 Condition: critical EKG Rhythm: Sinus Rhythm FI02: 100 Vent Support Breath Rate: 24 Vent Support Mode: AC Vent Tidal Volume: 500 Sputum Amount: Small PEEP: 10.0 PIP: 46 Drips: Fentanyl gtt 180 mcg/hr Tube Feeding Amount: 40 I&O: Intake and Output 09/22/19 09/23/19 18:59 06:59 Intake Total 798.863 ml 804.3 ml Output Total 380 ml 210 ml Balance 418.863 ml 594.3 ml Intake Free Water 160 ml 90 ml IV Total 158.863 ml 234.3 ml Tube Feeding 480 ml 480 ml Output Urine Total 380 ml 210 ml CXR: Slight interval improvement in aeration of the lungs. Juve Martinez MD 09/23/19 1328: Critical Care - Asmt/Plan Problems: (1) HCAP (healthcare-associated pneumonia) (2) Sacral decubitus ulcer, stage IV (3) Renal failure (ARF), acute on chronic (4) JAVIER (acute kidney injury) (5) Electrolyte imbalance (6) Anemia (7) Dehydration (8) Acute encephalopathy (9) Tracheostomy in place (10) Feeding by G-tube (11) Aortic dissection, thoracic (12) Pacemaker (13) Pleural effusion (14) Bacteremia (15) Ascites (16) Chronic respiratory failure Assessment/Plan: Patient seen and examined with SUPERVISOR [employer]OS[employer]ATIC FERTILIZER. Agree with above A&P as it reflects our joint deliberations. Continue ventilatory support/setting reviewed Dec FiO2 and then PEEP as able HHN's Monitor effusion, thoracentesis eval Abx: Harinder/Vanco per ID, F/U C'xs Monitor volumes and renal function, consider HCO3-, consider BiPAP ICU sedation: Fent gtt RASS -2 + PRN Versed DVT Px: Hep SQ FC, continue to discuss GOC Wound care D/W Dr. Houston D/W [employer] Alina Critical Care - Objective Status: obtunded - intubaed Condition: critical HEENT: atraumatic Neck: trach Lungs: rhonchi Heart: HR/BP stable Abdomen: soft, non-tender, active bowel sounds, feeding tube Extremities: no C/C/E Decubiti: location - sac, stage - 4 Blood Sugars: BS controlled Critical Care - Subjective ROS Limited/Unobtainable: Yes Condition: critical IV Access: peripheral EKG Rhythm: Sinus Rhythm Secretions: Scant Tube Feeding Amount: 40 Residuals: 0 Subjective: LILY Labs: Laboratory Tests 09/23/19 04:04: White Blood Count 17.6H, Red Blood Count 2.51L, Hemoglobin 8.1L, Hematocrit 25.3L, Mean Corpuscular Volume 101H, Mean Corpuscular Hemoglobin 32.3H, Mean Corpuscular Hemoglobin Concent 32.1, Red Cell Distribution Width 16.4H, Platelet Count 275, Mean Platelet Volume 5.3L, Neutrophils (%) (Auto) 80.9H, Lymphocytes (%) (Auto) 12.1L, Monocytes (%) (Auto) 4.1, Eosinophils (%) (Auto) 2.7, Basophils (%) (Auto) 0.3, Sodium Level 143, Potassium Level 5.5H, Chloride Level 112H, Carbon Dioxide Level 19L, Anion Gap 13, Blood Urea Nitrogen 147H, Creatinine 2.8H, Estimat Glomerular Filtration Rate 18.1, Glucose Level 104, Calcium Level 9.1, Phosphorus Level 3.9, Magnesium Level 3.5H, Total Bilirubin 0.4, Aspartate Amino Transf (AST/SGOT) 22, Alanine Aminotransferase (ALT/SGPT) 15, Alkaline Phosphatase 167H, Total Protein 7.4, Albumin 2.4L, Globulin 5.0, Albumin/Globulin Ratio 0.5L, Random Vancomycin Level 17.5 09/23/19 08:04: Arterial Blood pH 7.215*L, Arterial Blood Partial Pressure CO2 39.4, Arterial Blood Partial Pressure O2 78.9, Arterial Blood HCO3 15.6*L, Arterial Blood Oxygen Saturation 93.9L, Arterial Blood Base Excess -11.4*L, Rojas Test Positive 09/23/19 08:38: Urine Color Brown, Urine Appearance Slightly cloudy, Urine pH 5, Urine Specific [place] 1.015, Urine Protein 4+H, Urine Glucose (UA) Negative, Urine Ketones 1+H , Urine Blood 5+H, Urine Nitrite PositiveH, Urine Bilirubin 1+H, Urine Ictotest Negative, Urine Urobilinogen 1H, Urine Leukocyte Esterase 3+H, Urine RBC TntcH, Urine WBC 60-80H, Urine Squamous Epithelial Cells Few, Urine Bacteria ModerateH Yara Castro NP Sep 23, 2019 09:52 Juve Martinez MD Sep 23, 2019 13:28
[2019-09-23] MEDS ORDERED: Metoclopramide 10mg/2ml Inj IVP SCH (10:15)
--- NOTE | 2019-09-23 10:23 | Nephrology Progress Note ---
Assessment/Plan Problem List: (1) JAVIER (acute kidney injury) (2) Renal failure (ARF), acute on chronic (3) Dehydration (4) Electrolyte imbalance (5) Anemia (6) Respiratory failure, acute and chronic (7) COPD with exacerbation Assessment Patient is presented with sepsis and pneumonia and UTI Patient has acute renal failure, possible underlying chronic kidney failure Severe anemia Electrolyte imbalances: Hyponatremia, hypo-kalemia Chronic respiratory failure, COPD exacerbation Plan September 22: Labs reviewed. Potassium high. Kayexalate and Reglan given. Will discuss with the consultants regarding initiation of dialysis. September 21: Patient is being sedated. Labs reviewed. Potassium supplement discontinued. GFR 20. Continue per current treatment plan. Dialysis and ultrafiltration is a consideration. September 20: Patient periodically agitated. Labs reviewed. Creatinine 2.4. Medication reviewed. Continue per consultants. Calculated creatinine clearance 21. May need isolated ultrafiltration on dialysis. Will discuss with PMD. Meanwhile hemoglobin is lower, defer transfusion to PMD. September 19: DC IV fluid. Zaroxolyn via GT tube. Potassium supplement. Attempt to diurese. Chest CT as bilateral pleural effusion. If diuresis unsuccessful, will consider dialysis and ultrafiltration. September 18: Potassium supplement IV given. Hemoglobin stable. Patient remains full code. Continue per consultants. Previously: Potassium supplement IV Slow IV hydration Epogen subcu Adjust blood pressure medication IV fluid, rate adjusted Norman catheter, intake and output Monitor renal parameters Avoid nephrotoxic's Antibiotics Per orders 2D echocardiogram Kidney ultrasound Subjective ROS Limited/Unobtainable: Yes Objective Objective Last 24 Hour Vital Signs Date Time Temp Pulse Resp B/P (MAP) Pulse Ox O2 Delivery O2 Flow Rate FiO2 09/23/19 10:00 65 24 168/55 (92) 100 09/23/19 10:00 24 168/55 Non-Rebreather 90 09/23/19 09:30 68 23 146/62 (90) 100 09/23/19 09:01 68 27 100 09/23/19 09:00 70 21 163/57 (92) 100 09/23/19 09:00 24 164/61 Mechanical Ventilator 100 09/23/19 08:56 69 160/51 09/23/19 08:30 70 22 153/61 (91) 100 09/23/19 08:00 100 09/23/19 08:00 24 138/47 Mechanical Ventilator 100 09/23/19 08:00 Mechanical Ventilator 09/23/19 08:00 100.0 68 24 156/56 (89) 96 09/23/19 07:30 68 24 150/53 (85) 97 09/23/19 07:24 68 26 97 Mechanical Ventilator 100 71 24 09/23/19 07:00 68 25 148/64 (92) 94 09/23/19 07:00 23 148/64 Mechanical Ventilator 100 09/23/19 06:00 70 27 159/60 (93) 92 09/23/19 06:00 23 153/57 Mechanical Ventilator 100 09/23/19 05:47 25 146/54 100 09/23/19 05:33 157/61 09/23/19 05:33 70 157/61 09/23/19 05:21 70 28 100 09/23/19 05:00 70 21 157/52 (87) 95 09/23/19 05:00 25 157/52 Mechanical Ventilator 100 09/23/19 04:45 69 25 147/52 (83) 95 09/23/19 04:30 69 23 159/56 (90) 97 09/23/19 04:15 70 24 155/54 (87) 98 09/23/19 04:00 74 09/23/19 04:00 100 09/23/19 04:00 32 188/66 Mechanical Ventilator 100 09/23/19 04:00 Mechanical Ventilator 09/23/19 04:00 98.6 72 24 164/57 (92) 96 09/23/19 03:45 76 24 161/63 (95) 90 09/23/19 03:41 72 28 100 09/23/19 03:30 77 28 188/66 (106) 91 09/23/19 03:00 24 160/65 Mechanical Ventilator 80 09/23/19 03:00 73 27 160/65 (96) 87 09/23/19 02:00 59 24 150/47 (81) 99 09/23/19 02:00 24 150/47 Mechanical Ventilator 80 09/23/19 01:52 60 24 100 Mechanical Ventilator 80 63 24 09/23/19 01:00 60 24 136/44 (74) 96 09/23/19 01:00 22 136/44 Mechanical Ventilator 80 09/23/19 00:00 98.2 59 24 133/45 (74) 96 09/23/19 00:00 62 09/23/19 00:00 Mechanical Ventilator 09/23/19 00:00 24 139/45 Mechanical Ventilator 80 09/23/19 00:00 80 09/22/19 23:50 146/47 09/22/19 23:50 63 146/47 09/22/19 23:35 63 24 80 09/22/19 23:00 24 146/47 Mechanical Ventilator 80 09/22/19 23:00 62 24 146/47 (80) 99 20 22:00 24 142/46 Mechanical Ventilator 80 09/22/19 22:00 98.1 61 24 147/47 (80) 99 09/22/19 21:04 63 24 80 09/22/19 21:00 64 24 148/49 (82) 99 09/22/19 21:00 24 148/49 Mechanical Ventilator 80 09/22/19 20:32 67 153/54 09/22/19 20:00 62 24 147/52 (83) 99 09/22/19 20:00 24 147/52 Mechanical Ventilator 80 09/22/19 20:00 65 09/22/19 20:00 Mechanical Ventilator 09/22/19 19:51 65 24 100 Mechanical Ventilator 80 64 24 09/22/19 19:00 66 28 144/60 (88) 95 09/22/19 19:00 27 144/51 Mechanical Ventilator 80 09/22/19 18:00 80 09/22/19 18:00 98.4 79 30 167/52 (90) 95 09/22/19 17:45 28 173/55 Mechanical Ventilator 70 09/22/19 17:32 170/80 09/22/19 17:32 82 170/80 09/22/19 17:30 30 174/76 Mechanical Ventilator 70 09/22/19 17:24 74 24 70 09/22/19 17:15 30 189/105 Mechanical Ventilator 70 09/22/19 17:00 77 28 178/64 (102) 93 09/22/19 17:00 24 170/80 Mechanical Ventilator 70 09/22/19 16:52 198/80 09/22/19 16:45 29 168/76 Mechanical Ventilator 70 09/22/19 16:30 77 22 188/67 (107) 95 09/22/19 16:30 26 198/80 Mechanical Ventilator 70 09/22/19 16:15 27 190/79 Mechanical Ventilator 70 8/9/20 16:00 99.9 75 22 166/55 (92) 95 09/22/19 16:00 24 200/72 Mechanical Ventilator 70 09/22/19 16:00 Mechanical Ventilator 09/22/19 16:00 86 09/22/19 16:00 70 09/22/19 15:30 68 24 157/49 (85) 96 09/22/19 15:17 68 25 70 09/22/19 15:00 25 184/60 Mechanical Ventilator 70 09/22/19 15:00 67 24 158/50 (86) 97 09/22/19 14:30 68 24 156/51 (86) 96 09/22/19 14:00 67 24 160/52 (88) 94 09/22/19 14:00 24 162/52 Mechanical Ventilator 60 09/22/19 13:40 60 09/22/19 13:30 66 24 166/51 (89) 95 09/22/19 13:24 66 25 100 Mechanical Ventilator 60 65 25 09/22/19 13:00 23 169/52 Mechanical Ventilator 100 09/22/19 13:00 63 24 154/52 (86) 100 09/22/19 12:30 62 24 148/47 (80) 100 09/22/19 12:07 146/46 09/22/19 12:07 61 146/46 09/22/19 12:00 Mechanical Ventilator 09/22/19 12:00 98.2 62 24 146/46 (79) 100 09/22/19 12:00 62 09/22/19 12:00 24 148/49 Mechanical Ventilator 100 09/22/19 12:00 100 09/22/19 11:30 62 24 146/46 (79) 99 09/22/19 11:00 62 22 146/49 (81) 99 09/22/19 11:00 24 141/46 Mechanical Ventilator 100 09/22/19 10:37 61 24 100 09/22/19 10:30 60 29 141/55 (83) 98 Intake and Output 09/22/19 09/23/19 19:00 07:00 Intake Total 805.863 ml 807.3 ml Output Total 380 ml 210 ml Balance 425.863 ml 597.3 ml Intake Free Water 160 ml 90 ml IV Total 165.863 ml 237.3 ml Tube Feeding 480 ml 480 ml Output Urine Total 380 ml 210 ml Laboratory Tests 09/23/19 04:04: White Blood Count 17.6H, Red Blood Count 2.51L, Hemoglobin 8.1L, Hematocrit 25.3L, Mean Corpuscular Volume 101H, Mean Corpuscular Hemoglobin 32.3H, Mean Corpuscular Hemoglobin Concent 32.1, Red Cell Distribution Width 16.4H, Platelet Count 275, Mean Platelet Volume 5.3L, Neutrophils (%) (Auto) 80.9H, Lymphocytes (%) (Auto) 12.1L, Monocytes (%) (Auto) 4.1, Eosinophils (%) (Auto) 2.7, Basophils (%) (Auto) 0.3, Sodium Level 143, Potassium Level 5.5H, Chloride Level 112H, Carbon Dioxide Level 19L, Anion Gap 13, Blood Urea Nitrogen 147H, Creatinine 2.8H, Estimat Glomerular Filtration Rate 18.1, Glucose Level 104, Calcium Level 9.1, Phosphorus Level 3.9, Magnesium Level 3.5H, Total Bilirubin 0.4, Aspartate Amino Transf (AST/SGOT) 22, Alanine Aminotransferase (ALT/SGPT) 15, Alkaline Phosphatase 167H, Total Protein 7.4, Albumin 2.4L, Globulin 5.0, Albumin/Globulin Ratio 0.5L, Random Vancomycin Level 17.5 09/23/19 08:04: Arterial Blood pH 7.215*L, Arterial Blood Partial Pressure CO2 39.4, Arterial Blood Partial Pressure O2 78.9, Arterial Blood HCO3 15.6*L, Arterial Blood Oxygen Saturation 93.9L, Arterial Blood Base Excess -11.4*L, Rojas Test Positive Height (Feet): 5 Height (Inches): 5.00 Weight (Pounds): 138 General Appearance: no apparent distress EENT: other - Trach to vent Cardiovascular: normal rate Respiratory/Chest: decreased breath sounds Abdomen: distended Johnny Houston MD Sep 23, 2019 10:23
--- NOTE | 2019-09-23 10:28 | Infectious Diseases Prog Note ---
Assessment/Plan 49yo F with: Acute hypoxic resp failure- now on MV Fio2 80%> 90% 09/17> 100% 09/19- r.o PE Pneumonia- COVID19 neg x3 09/18 rapid COVID PCR neg CT chest: Markedly suboptimal examination due to lack of IV contrast material. Bilateral pleural effusions, right greater than left, with bilateral lower lobe consolidation or volume loss. Groundglass densities in the upper lobes bilaterally. This is not specific. Tracheostomy. Increased superior mediastinal density. Stability of adenopathy cannot be excluded. Atherosclerotic change. Gastrostomy. Ascites. Left renal stent with left hydronephrosis and renal atrophy. 09/17 Chest US: Trace right and small left pleural effusions. No safe window identified for bedside thoracentesis. Note that the majority of the left pleural effusion is subpulmonic. 09/16 CXR: Worsening of right lung infiltrates and right effusion. V. duplex: NO DVT D-dimer elevated 09/15 Rapid COVID pCR neg Sp cx ESBL P. mirablis 09/14 CXR: Bilateral airspace opacities, preferentially involving the right lung, consistent with multifocal infiltrate. Trace bilateral pleural effusions. No pneumothorax. Rapid COVID PCR neg Gram positive bacteremia- real vs contaminant; does have hx of infected PPM- could be a possibility- ro endocarditis 09/14 Bcx 03/19 S. epidermis; 09/15 Bcx NTD 2d echo: no vegetations seen UTI -09/14 u/a wbc tnct, nit neg, leuk +3; ucx >100k MDR P. stuarti (S Ceftriaxone, Meropenem) Unstageable sacral ulceration Afebrile Leukocytosis, mild; fluctuates bt 12-13 JAVIER on CKD, improved -Renal US: Limited exam due to abdominal ascites and shadowing from bowel gas. CT recommended for more sensitive evaluation. Moderate right hydronephrosis. Increased renal parenchymal echogenicity suggesting intrinsic/ medical renal disease. Question indwelling left ureteral stent versus artifact. Bladder not visualized. 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 epi-11/2018, sp > 6weeks IV vancomycin -11/27 SP ABBIE: no evidence for vegetation on any of the valves -11/26/18 SP PPM removal: -OR findings:The fibrous capsule enclosing the generator was then opened and there was a [id number] amount of yellowish fluid drainage. The generator was then removed.Atrial and ventricular leads were detached. The necrotic tissue of the pocket was then removed and the pocket was flushed with an antibiotic solution. -Capsule, wound tissue and lead tip cx: Neg -2d echo: no vegetation seen -US chest: 4.6 x 3.4 x 0.9 cm hypoechoic/anechoic area overlying left chest pacemaker power pack. This could represent either a discrete fluid collection or a focal area of very edematous tissue. Infected fluid pocket also possible. -11/18 Bcx 3/4 S. epi; 11/20 Bcx neg; 11/24 Bcx Neg; 11/27 Bcx Neg Hx of PNA 11/2019? sp cx PsA (arnett S), ABC (I Ceftriaxone; otherwise negative) Sp cx MRSA, ABC (I Ceftriaxone; otherwise S) Afib HTN dysphagia sp GT aortic dissection s/p repair 2017, S/p PPM Parkinson's Disease schizophrenia anxiety COPD chronic resp failure s/p trach hx of tracheal bleeding [place] resident ([facility]) Plan: Continue Meropenem #7 Continue IV Vancomycin #8 BCx, UCx, Sputum cx today given worsening WBC 09/22/19 SP 8/4 SP Cefepime #3, Levaquin #3 -f/u cx -Monitor CBC/CMP, temperatures -f/u Bcx x2 -COVID19 neg x3 -ICU/ trach/ peg care -aspiration precautions D/w RN Thank you for this consultation. Will continue to follow along with you. Subjective Allergies: Coded Allergies: No Known Allergies (Unverified , 10/10/17) AF Sedated on vent, FiO2 90% PEEP 10, satting 100% but desats to 80s w/ decreased FiO2 Unstageable sacral wound Objective Last 24 Hour Vital Signs Date Time Temp Pulse Resp B/P (MAP) Pulse Ox O2 Delivery O2 Flow Rate FiO2 09/23/19 10:00 65 24 168/55 (92) 100 09/23/19 10:00 24 168/55 Non-Rebreather 90 09/23/19 09:30 68 23 146/62 (90) 100 09/23/19 09:01 68 27 100 09/23/19 09:00 70 21 163/57 (92) 100 09/23/19 09:00 24 164/61 Mechanical Ventilator 100 09/23/19 08:56 69 160/51 09/23/19 08:30 70 22 153/61 (91) 100 09/23/19 08:00 100 09/23/19 08:00 24 138/47 Mechanical Ventilator 100 09/23/19 08:00 Mechanical Ventilator 09/23/19 08:00 100.0 68 24 156/56 (89) 96 09/23/19 07:30 68 24 150/53 (85) 97 09/23/19 07:24 68 26 97 Mechanical Ventilator 100 71 24 09/23/19 07:00 68 25 148/64 (92) 94 09/23/19 07:00 23 148/64 Mechanical Ventilator 100 09/23/19 06:00 70 27 159/60 (93) 92 09/23/19 06:00 23 153/57 Mechanical Ventilator 100 09/23/19 05:47 25 146/54 100 09/23/19 05:33 157/61 09/23/19 05:33 70 157/61 09/23/19 05:21 70 28 100 09/23/19 05:00 70 21 157/52 (87) 95 09/23/19 05:00 25 157/52 Mechanical Ventilator 100 09/23/19 04:45 69 25 147/52 (83) 95 09/23/19 04:30 69 23 159/56 (90) 97 09/23/19 04:15 70 24 155/54 (87) 98 09/23/19 04:00 74 09/23/19 04:00 100 09/23/19 04:00 32 188/66 Mechanical Ventilator 100 09/23/19 04:00 Mechanical Ventilator 09/23/19 04:00 98.6 72 24 164/57 (92) 96 09/23/19 03:45 76 24 161/63 (95) 90 09/23/19 03:41 72 28 100 09/23/19 03:30 77 28 188/66 (106) 91 09/23/19 03:00 24 160/65 Mechanical Ventilator 80 09/23/19 03:00 73 27 160/65 (96) 87 09/23/19 02:00 59 24 150/47 (81) 99 09/23/19 02:00 24 150/47 Mechanical Ventilator 80 09/23/19 01:52 60 24 100 Mechanical Ventilator 80 63 24 09/23/19 01:00 60 24 136/44 (74) 96 09/23/19 01:00 22 136/44 Mechanical Ventilator 80 09/23/19 00:00 98.2 59 24 133/45 (74) 96 09/23/19 00:00 62 09/23/19 00:00 Mechanical Ventilator 09/23/19 00:00 24 139/45 Mechanical Ventilator 80 09/23/19 00:00 80 09/22/19 23:50 146/47 09/22/19 23:50 63 146/47 09/22/19 23:35 63 24 80 09/22/19 23:00 24 146/47 Mechanical Ventilator 80 09/22/19 23:00 62 24 146/47 (80) 99 09/22/19 22:00 24 142/46 Mechanical Ventilator 80 09/22/19 22:00 98.1 61 24 147/47 (80) 99 09/22/19 21:04 63 24 80 09/22/19 21:00 64 24 148/49 (82) 99 09/22/19 21:00 24 148/49 Mechanical Ventilator 80 09/22/19 20:32 67 153/54 09/22/19 20:00 62 24 147/52 (83) 99 09/22/19 20:00 24 147/52 Mechanical Ventilator 80 09/22/19 20:00 65 09/22/19 20:00 Mechanical Ventilator 09/22/19 19:51 65 24 100 Mechanical Ventilator 80 64 24 09/22/19 19:00 66 28 144/60 (88) 95 09/22/19 19:00 27 144/51 Mechanical Ventilator 80 09/22/19 18:00 80 09/22/19 18:00 98.4 79 30 167/52 (90) 95 09/22/19 17:45 28 173/55 Mechanical Ventilator 70 09/22/19 17:32 170/80 09/22/19 17:32 82 170/80 09/22/19 17:30 30 174/76 Mechanical Ventilator 70 09/22/19 17:24 74 24 70 09/22/19 17:15 30 189/105 Mechanical Ventilator 70 09/22/19 17:00 77 28 178/64 (102) 93 09/22/19 17:00 24 170/80 Mechanical Ventilator 70 09/22/19 16:52 198/80 09/22/19 16:45 29 168/76 Mechanical Ventilator 70 09/22/19 16:30 77 22 188/67 (107) 95 09/22/19 16:30 26 198/80 Mechanical Ventilator 70 09/22/19 16:15 27 190/79 Mechanical Ventilator 70 09/22/19 16:00 99.9 75 22 166/55 (92) 95 09/22/19 16:00 24 200/72 Mechanical Ventilator 70 09/22/19 16:00 Mechanical Ventilator 09/22/19 16:00 86 09/22/19 16:00 70 09/22/19 15:30 68 24 157/49 (85) 96 09/22/19 15:17 68 25 70 09/22/19 15:00 25 184/60 Mechanical Ventilator 70 09/22/19 15:00 67 24 158/50 (86) 97 09/22/19 14:30 68 24 156/51 (86) 96 09/22/19 14:00 67 24 160/52 (88) 94 09/22/19 14:00 24 162/52 Mechanical Ventilator 60 09/22/19 13:40 60 09/22/19 13:30 66 24 166/51 (89) 95 09/22/19 13:24 66 25 100 Mechanical Ventilator 60 65 25 09/22/19 13:00 23 169/52 Mechanical Ventilator 100 09/22/19 13:00 63 24 154/52 (86) 100 09/22/19 12:30 62 24 148/47 (80) 100 09/22/19 12:07 146/46 09/22/19 12:07 61 146/46 09/22/19 12:00 Mechanical Ventilator 09/22/19 12:00 98.2 62 24 146/46 (79) 100 09/22/19 12:00 62 09/22/19 12:00 24 148/49 Mechanical Ventilator 100 09/22/19 12:00 100 09/22/19 11:30 62 24 146/46 (79) 99 09/22/19 11:00 62 22 146/49 (81) 99 09/22/19 11:00 24 141/46 Mechanical Ventilator 100 09/22/19 10:37 61 24 100 09/22/19 10:30 60 29 141/55 (83) 98 Height (Feet): 5 Height (Inches): 5.00 Weight (Pounds): 138 Gen: Older woman, sedated on vent Pulm: BL chest rise on vent Abd: Soft, non-distended Ext: No c/c Neuro: Sedated Laboratory Tests Test 09/23/19 04:04 09/23/19 08:04 White Blood Count 17.6 K/UL (4.8-10.8) H Red Blood Count 2.51 M/UL (4.20-5.40) L Hemoglobin 8.1 G/DL (12.0-16.0) L Hematocrit 25.3 % (37.0-47.0) L Mean Corpuscular Volume 101 FL (80-99) H Mean Corpuscular Hemoglobin 32.3 PG (27.0-31.0) H Mean Corpuscular Hemoglobin Concent 32.1 G/DL (32.0-36.0) Red Cell Distribution Width 16.4 % (11.6-14.8) H Platelet Count 275 K/UL (150-450) Mean Platelet Volume 5.3 FL (6.5-10.1) L Neutrophils (%) (Auto) 80.9 % (45.0-75.0) H Lymphocytes (%) (Auto) 12.1 % (20.0-45.0) L Monocytes (%) (Auto) 4.1 % (1.0-10.0) Eosinophils (%) (Auto) 2.7 % (0.0-3.0) Basophils (%) (Auto) 0.3 % (0.0-2.0) Sodium Level 143 MMOL/L (136-145) Potassium Level 5.5 MMOL/L (3.5-5.1) H Chloride Level 112 MMOL/L (98-107) H Carbon Dioxide Level 19 MMOL/L (21-32) L Anion Gap 13 mmol/L (5-15) Blood Urea Nitrogen 147 mg/dL (7-18) H Creatinine 2.8 MG/DL (0.55-1.30) H Estimat Glomerular Filtration Rate 18.1 mL/min (>60) Glucose Level 104 MG/DL (74-106) Calcium Level 9.1 MG/DL (8.5-10.1) Phosphorus Level 3.9 MG/DL (2.5-4.9) Magnesium Level 3.5 MG/DL (1.8-2.4) H Total Bilirubin 0.4 MG/DL (0.2-1.0) Aspartate Amino Transf (AST/SGOT) 22 U/L (15-37) Alanine Aminotransferase (ALT/SGPT) 15 U/L (12-78) Alkaline Phosphatase 167 U/L (46-116) H Total Protein 7.4 G/DL (6.4-8.2) Albumin 2.4 G/DL (3.4-5.0) L Globulin 5.0 g/dL Albumin/Globulin Ratio 0.5 (1.0-2.7) L Random Vancomycin Level 17.5 ug/mL Arterial Blood pH 7.215 (7.350-7.450) Arterial Blood Partial Pressure CO2 39.4 mmHg (35.0-45.0) Arterial Blood Partial Pressure O2 78.9 mmHg (75.0-100.0) Arterial Blood HCO3 15.6 mmol/L (22.0-26.0) *L Arterial Blood Oxygen Saturation 93.9 % (95-100) L Arterial Blood Base Excess -11.4 (-2-2) *L Rojas Test Positive Current Medications Medications (Trade) Dose Ordered Sig/Penny Route PRN Reason Start Time Stop Time Status Last Admin Dose Admin Acetaminophen/ Hydrocodone Bitart ([place] 10/325) 1 tab Q6H PRN GT For Pain 09/21/19 13:30 09/26/19 13:29 09/23/19 03:29 Acetylcysteine (Mucomyst) 200 mg Q6HRT [facility] 09/18/19 19:00 12/17/19 18:59 09/23/19 08:07 Albuterol/ Ipratropium (Albuterol/ Ipratropium) 3 ml Q6HRT N 09/21/19 13:00 09/24/19 12:59 09/23/19 08:07 Clonazepam (KlonoPIN) 0.5 mg Q12HR GT 09/21/19 21:00 09/26/19 08:59 09/23/19 08:55 Diltiazem HCl (Cardizem Tab) 60 mg EVERY 6 HOURS GT 09/17/19 12:00 10/15/19 11:59 09/23/19 05:33 Docusate Sodium (Colace) 100 mg TID GT 09/17/19 13:00 10/15/19 08:59 09/23/19 08:56 Epoetin Gelacio (Epoetin Gelacio-EPBX(NON ESRD)) 10,000 unit MON-MON-MON SUBQ 09/18/19 21:00 12/15/19 20:59 09/20/19 20:05 Fentanyl Citrate 250 ml @ 0 mls/hr Q24H IV 09/21/19 09:30 12/20/19 09:29 09/23/19 05:47 Heparin Sodium (Porcine) (Heparin 5000 units/ml) 5,000 units EVERY 12 HOURS SUBQ 09/17/19 21:00 10/30/19 08:59 09/23/19 08:57 Hydralazine HCl (Apresoline) 10 mg Q4H PRN IV BP over 160 systolic 09/17/19 11:15 12/14/19 11:14 09/22/19 16:52 Hydralazine HCl (Apresoline) 50 mg Q6HR GT 09/17/19 12:00 12/15/19 17:59 09/23/19 05:33 Ipratropium [place] (Atrovent) 500 mcg Q4H PRN HHN Shortness of Breath 09/21/19 13:30 09/26/19 13:29 Meropenem 1 gm/ Sodium Chloride 55 ml @ 110 mls/hr Q12HR IVPB 09/21/19 21:00 09/26/19 20:59 09/23/19 08:55 Metoclopramide HCl (Reglan) 10 mg ONCE IVP 09/23/19 10:15 09/23/19 12:00 Metoprolol Tartrate (Lopressor) 50 mg EVERY 12 HOURS GT 09/17/19 21:00 12/14/19 08:59 09/23/19 08:56 Midazolam HCl (Versed 2mg/2ml vial) 1 mg Q4H PRN IVP For Anxiety 09/21/19 09:30 12/20/19 09:29 09/23/19 08:56 Olanzapine (ZyPREXA) 2.5 mg DAILY GT 09/18/19 09:00 10/30/19 08:59 09/23/19 08:56 Pantoprazole (Protonix) 40 mg EVERY 12 HOURS IVP 09/21/19 21:00 10/21/19 20:59 09/23/19 08:56 Sertraline HCl (Zoloft) 100 mg BEDTIME GT 09/17/19 21:00 10/15/19 20:59 09/22/19 20:32 Vancomycin HCl (Vanco pharmacy to dose) 1 ea DAILY PRN MISC Per rx protocol 09/18/19 09:00 10/16/19 13:44 Ro Pack M.D. Sep 23, 2019 10:27
[2019-09-23 11:02] LABS: APPEARANCE,URINE SLIGHTLY CLOUDY; BILIRUBIN, URINE 1+ (NEGATIVE); COLOR,URINE BROWN; GLUCOSE, URINE (UA) NEGATIVE (NEGATIVE); KETONES,URINE 1+ (NEGATIVE); LEUKOCYTE ESTERASE ,URINE 3+ (NEGATIVE); NITRITE,URINE POSITIVE (NEGATIVE); PH,URINE 5 (4.5-8.0); PROTEIN,URINE 4+ (NEGATIVE); UROBILINOGEN,URINE 1 MG/DL (0.0-1.0)
[2019-09-23] MEDS ORDERED: fentaNYL 2500mcg/NS 250ml 250 ML IV SCH ×2 (11:45→12:00)
[2019-09-23] MEDS: Acetaminophen 650mg/20.3ml GT PRN ×2 (12:08→18:55)
--- NOTE | 2019-09-23 15:11 | Diagnostic Imaging Report ---
Indication: Shortness of breath Technique: One view of the chest Comparison: 09/22/2019 Findings: Interim slight worsening of diffuse infiltrates bilaterally. Normal heart size. Tracheostomy, sternotomy sutures are again noted. Impression: Over one day, slight worsening of bilateral infiltrates, likely pneumonia
[2019-09-23] MEDS ORDERED: Heparin1,000 units/500ml Premix(Conc:2 units/ml) INJ PRN (15:56)
[2019-09-23] MEDS ORDERED: Lidocaine 1% Plain 30 ml INJ PRN (15:56)
--- NOTE | 2019-09-23 17:02 | Surgery Progress Note ---
Surgery Progress Note Subjective Additional Comments no acute events loabs noted exam stable comfortable vent settings slowly weaning Objective Last 24 Hour Vital Signs Date Time Temp Pulse Resp B/P (MAP) Pulse Ox O2 Delivery O2 Flow Rate FiO2 09/23/19 16:40 74 29 100 09/23/19 16:00 Mechanical Ventilator 09/23/19 16:00 80 09/23/19 16:00 100.0 76 25 173/58 (96) 91 09/23/19 15:30 78 21 172/77 (108) 93 09/23/19 15:24 70 24 90 09/23/19 15:00 24 147/50 Mechanical Ventilator 80 09/23/19 15:00 67 24 147/50 (82) 98 09/23/19 14:30 73 21 156/64 (94) 100 09/23/19 14:15 74 23 142/71 (94) 98 09/23/19 14:00 24 170/59 Mechanical Ventilator 80 09/23/19 14:00 78 26 154/74 (100) 97 09/23/19 13:30 65 24 146/47 (80) 99 09/23/19 13:00 64 24 141/51 (81) 100 09/23/19 13:00 24 141/51 Mechanical Ventilator 90 09/23/19 12:43 67 24 96 Mechanical Ventilator 90 69 24 09/23/19 12:38 100.0 09/23/19 12:30 100.0 68 24 145/48 (80) 97 09/23/19 12:09 66 153/50 09/23/19 12:08 153/50 09/23/19 12:00 90 09/23/19 12:00 Mechanical Ventilator 09/23/19 12:00 100.5 67 23 153/50 (84) 100 09/23/19 11:30 67 24 153/52 (85) 100 09/23/19 11:00 67 24 159/51 (87) 99 09/23/19 11:00 24 153/50 Mechanical Ventilator 90 09/23/19 10:55 67 24 100 09/23/19 10:30 66 24 176/57 (96) 100 09/23/19 10:00 65 24 168/55 (92) 100 09/23/19 10:00 24 168/55 Non-Rebreather 90 09/23/19 09:30 68 23 146/62 (90) 100 8/10/20 09:01 68 27 100 09/23/19 09:00 70 21 163/57 (92) 100 09/23/19 09:00 24 164/61 Mechanical Ventilator 100 09/23/19 08:56 69 160/51 09/23/19 08:30 70 22 153/61 (91) 100 09/23/19 08:00 68 09/23/19 08:00 100 09/23/19 08:00 24 138/47 Mechanical Ventilator 100 09/23/19 08:00 Mechanical Ventilator 09/23/19 08:00 100.0 68 24 156/56 (89) 96 09/23/19 07:30 68 24 150/53 (85) 97 09/23/19 07:24 68 26 97 Mechanical Ventilator 100 71 24 09/23/19 07:00 68 25 148/64 (92) 94 09/23/19 07:00 23 148/64 Mechanical Ventilator 100 09/23/19 06:00 70 27 159/60 (93) 92 09/23/19 06:00 23 153/57 Mechanical Ventilator 100 09/23/19 05:47 25 146/54 100 09/23/19 05:33 157/61 09/23/19 05:33 70 157/61 09/23/19 05:21 70 28 100 09/23/19 05:00 70 21 157/52 (87) 95 09/23/19 05:00 25 157/52 Mechanical Ventilator 100 09/23/19 04:45 69 25 147/52 (83) 95 09/23/19 04:30 69 23 159/56 (90) 97 09/23/19 04:15 70 24 155/54 (87) 98 09/23/19 04:00 74 09/23/19 04:00 100 09/23/19 04:00 32 188/66 Mechanical Ventilator 100 09/23/19 04:00 Mechanical Ventilator 09/23/19 04:00 98.6 72 24 164/57 (92) 96 09/23/19 03:45 76 24 161/63 (95) 90 09/23/19 03:41 72 28 100 09/23/19 03:30 77 28 188/66 (106) 91 09/23/19 03:00 24 160/65 Mechanical Ventilator 80 09/23/19 03:00 73 27 160/65 (96) 87 09/23/19 02:00 59 24 150/47 (81) 99 09/23/19 02:00 24 150/47 Mechanical Ventilator 80 09/23/19 01:52 60 24 100 Mechanical Ventilator 80 63 24 09/23/19 01:00 60 24 136/44 (74) 96 09/23/19 01:00 22 136/44 Mechanical Ventilator 80 09/23/19 00:00 98.2 59 24 133/45 (74) 96 09/23/19 00:00 62 09/23/19 00:00 Mechanical Ventilator 09/23/19 00:00 24 139/45 Mechanical Ventilator 80 09/23/19 00:00 80 09/22/19 23:50 146/47 09/22/19 23:50 63 146/47 09/22/19 23:35 63 24 80 09/22/19 23:00 24 146/47 Mechanical Ventilator 80 09/22/19 23:00 62 24 146/47 (80) 99 09/22/19 22:00 24 142/46 Mechanical Ventilator 80 09/22/19 22:00 98.1 61 24 147/47 (80) 99 09/22/19 21:04 63 24 80 09/22/19 21:00 64 24 148/49 (82) 99 09/22/19 21:00 24 148/49 Mechanical Ventilator 80 09/22/19 20:32 67 153/54 09/22/19 20:00 62 24 147/52 (83) 99 09/22/19 20:00 24 147/52 Mechanical Ventilator 80 09/22/19 20:00 65 09/22/19 20:00 Mechanical Ventilator 09/22/19 19:51 65 24 100 Mechanical Ventilator 80 64 24 09/22/19 19:00 66 28 144/60 (88) 95 09/22/19 19:00 27 144/51 Mechanical Ventilator 80 09/22/19 18:00 80 09/22/19 18:00 98.4 79 30 167/52 (90) 95 09/22/19 17:45 28 173/55 Mechanical Ventilator 70 09/22/19 17:32 170/80 09/22/19 17:32 82 170/80 09/22/19 17:30 30 174/76 Mechanical Ventilator 70 09/22/19 17:24 74 24 70 09/22/19 17:15 30 189/105 Mechanical Ventilator 70 I&O Intake and Output 09/22/19 09/23/19 19:00 07:00 Intake Total 805.863 ml 807.3 ml Output Total 380 ml 210 ml Balance 425.863 ml 597.3 ml Intake Free Water 160 ml 90 ml IV Total 165.863 ml 237.3 ml Tube Feeding 480 ml 480 ml Output Urine Total 380 ml 210 ml Dressing: saturated Cardiovascular: RSR Respiratory: decreased breath sounds Abdomen: soft, present bowel sounds Extremities: no cyanosis Laboratory Tests Test 09/23/19 04:04 09/23/19 08:04 09/23/19 08:38 White Blood Count 17.6 K/UL (4.8-10.8) H Red Blood Count 2.51 M/UL (4.20-5.40) L Hemoglobin 8.1 G/DL (12.0-16.0) L Hematocrit 25.3 % (37.0-47.0) L Mean Corpuscular Volume 101 FL (80-99) H Mean Corpuscular Hemoglobin 32.3 PG (27.0-31.0) H Mean Corpuscular Hemoglobin Concent 32.1 G/DL (32.0-36.0) Red Cell Distribution Width 16.4 % (11.6-14.8) H Platelet Count 275 K/UL (150-450) Mean Platelet Volume 5.3 FL (6.5-10.1) L Neutrophils (%) (Auto) 80.9 % (45.0-75.0) H Lymphocytes (%) (Auto) 12.1 % (20.0-45.0) L Monocytes (%) (Auto) 4.1 % (1.0-10.0) Eosinophils (%) (Auto) 2.7 % (0.0-3.0) Basophils (%) (Auto) 0.3 % (0.0-2.0) Sodium Level 143 MMOL/L (136-145) Potassium Level 5.5 MMOL/L (3.5-5.1) H Chloride Level 112 MMOL/L (98-107) H Carbon Dioxide Level 19 MMOL/L (21-32) L Anion Gap 13 mmol/L (5-15) Blood Urea Nitrogen 147 mg/dL (7-18) H Creatinine 2.8 MG/DL (0.55-1.30) H Estimat Glomerular Filtration Rate 18.1 mL/min (>60) Glucose Level 104 MG/DL (74-106) Calcium Level 9.1 MG/DL (8.5-10.1) Phosphorus Level 3.9 MG/DL (2.5-4.9) Magnesium Level 3.5 MG/DL (1.8-2.4) H Total Bilirubin 0.4 MG/DL (0.2-1.0) Aspartate Amino Transf (AST/SGOT) 22 U/L (15-37) Alanine Aminotransferase (ALT/SGPT) 15 U/L (12-78) Alkaline Phosphatase 167 U/L (46-116) H Total Protein 7.4 G/DL (6.4-8.2) Albumin 2.4 G/DL (3.4-5.0) L Globulin 5.0 g/dL Albumin/Globulin Ratio 0.5 (1.0-2.7) L Random Vancomycin Level 17.5 ug/mL Arterial Blood pH 7.215 (7.350-7.450) Arterial Blood Partial Pressure CO2 39.4 mmHg (35.0-45.0) Arterial Blood Partial Pressure O2 78.9 mmHg (75.0-100.0) Arterial Blood HCO3 15.6 mmol/L (22.0-26.0) *L Arterial Blood Oxygen Saturation 93.9 % (95-100) L Arterial Blood Base Excess -11.4 (-2-2) *L Rojas Test Positive Urine Color Brown Urine Appearance Slightly cloudy Urine pH 5 (4.5-8.0) Urine Specific [place] 1.015 (1.005-1.035) Urine Protein 4+ (NEGATIVE) H Urine Glucose (UA) Negative (NEGATIVE) Urine Ketones 1+ (NEGATIVE) H Urine Blood 5+ (NEGATIVE) H Urine Nitrite Positive (NEGATIVE) H Urine Bilirubin 1+ (NEGATIVE) H Urine Ictotest Negative (NEGATIVE) Urine Urobilinogen 1 MG/DL (0.0-1.0) H Urine Leukocyte Esterase 3+ (NEGATIVE) H Urine RBC Tntc /HPF (0 - 2) H Urine WBC 60-80 /HPF (0 - 2) H Urine Squamous Epithelial Cells Few /LPF (NONE/OCC) Urine Bacteria Moderate /HPF (NONE) H Plan Problems: (1) Anemia (2) Proteinuria (3) UTI (urinary tract infection) (4) ARF (acute renal failure) (5) ACS (acute coronary syndrome) (6) Respiratory failure, acute and chronic (7) HCAP (healthcare-associated pneumonia) (8) Abrasion of lip, initial encounter (9) COPD with exacerbation (10) Hypokalemia (11) Sepsis Assessment & Plan: Leukocytosis, anemia, abnormal labs. Renal insufficiency potentially dehydrated Abnormal LFTs alk phos elevated Urine noted significant bacteria likely UTI etiology Wound stable still requiring local care IV antibiotics per infectious disease Discussed with high tension tester Dr. Berkowitz air mattress turn q2h nutritional tf will follow with recs thank you CT noted pending VQ scan - noted poor study low prob PE work respiratory increasing needs sedation (12) Chronic respiratory failure (13) Ascites (14) Bacteremia (15) Hypernatremia (16) Pleural effusion (17) Pacemaker (18) Aortic dissection, thoracic (19) Tracheostomy in place Assessment & Plan: trach stable no bleeding currently likely tongue etiology of mild oozing currently hemostatic without trauma (20) Feeding by G-tube Assessment & Plan: okay to resume tube feeds via g tube patent and functional dressings okay DAILY ESTIMATED NEEDS: Needs based on Pulmonary, wound 49kg 30-35 kcals/kg 4615-7713 total kcals 1.25-2 g protein/kg 61-98 g total protein Fluid per MD NUTRITION DIAGNOSIS: * Swallowing difficulty R/T dysphagia, respiratory status as evidenced by vent dep via T-collar, GT Dep. (CURRENT TF: Nepro @45ml/hr x 24 hrs) ENTERAL NUTRITION RECOMMENDATIONS: Nepro @ 40ml/hr x 24 hrs to provide 960ml, 1728kcal, 78g prot, 698ml free water * Rec LOWER current rate to 40ml/hr for 24 hrs run. * Water flush of 100ml q 6 hrs per orders * HOB over 30 degrees ADDITIONAL RECOMMENDATIONS: * Per SNF: HT=63", EL=936kqt -> rec calibrated bedscale wt * Pt on Nepro ERGONOMICS CONSULTANT, possible h/o electrolyte imbalance -> monitor lytes closely (K low at this time) * AUTOMATIC WHEEL LINE OPERATOR eval for oral grat if appropriate * F/up w/ WC eval-> add [place] in 4oz H20 BID via GT (21) JAVIER (acute kidney injury) (22) Elevated alkaline phosphatase level Assessment & Plan: noted on labs trend US ordered will follow with recs thank you (23) Acute encephalopathy (24) GT CLOGGED (25) Sacral decubitus ulcer, stage IV Assessment & Plan: Pt presented on admission with Full thickness stage 4 Sacral Pressure injury which extends into R gluteal cheek. Base of wound is granular with bone exposure at base of sacrococcygeal.(L)10.5cm x (W06.5cm x (D) 2.8cm , undermining 11-3 by 3.6cm @12 o'clock. small amt serosanguineous exudate noted . [place] epithelial along edges bordered by darker skin tone without erythema. Resolving Pressure injury L ischium. Base of wound is 95% pink epithelial ,5% noni at center base of wound. No exudate noted. Both heels are boggy with non-Blanching erythema. Tx.plan: Cleanse Sacral wound with Saline. Loosely pack with Hydrogel impregnated Kerlix. Apply Moisture Barrier Periwound. Cover with Optifoam drsg Daily and prn. Apply Moisture Barrier paste to L Ischium. Cover with Optifoam drsg. Changee very 3 days and prn. Apply Cavilon Skin Barrier to both heels. Cover each heel with Optifoam drsgs. Change every 7 days and prn. Reposition at least every 2hours or as tolerated. Off-load heels with pillow. APM/JENNIFER Mattress overlay. Lane Saavedra Sep 23, 2019 17:02
--- NOTE | 2019-09-23 17:14 | Brief Operative Note ---
Immediate Post Operative Note Operative Note Pre-op Diagnosis: renal failure Procedure: L IJV [place] Post-op Diagnosis: same as pre-op Surgeon: Eli David Anesthesia: local Specimen: none Complications: none Fluids: none Implant(s) used?: No Armen David MD Sep 23, 2019 17:14
[2019-09-23] MEDS: Dyna-Hex 2% Top Sol 2oz TOPIC SCH (19:35)
[2019-09-23] MEDS: Epoetin Alfa-EPBX (NON ESRD)10,000 unit/ml vial SUBQ SCH (20:05)
[2019-09-23] MEDS: Sertraline 100mg tab GT SCH (20:06)
[2019-09-24] VITALS (57 sets, daily range): BP systolic 102–179; BP diastolic 44–77
[2019-09-24] MEDS: Acetylcysteine 20% Soln 4ml HHN SCH ×4 (00:48→18:44)
[2019-09-24] MEDS: Albuterol/Ipratropium 3ml neb HHN SCH ×2 (00:48→08:04)
[2019-09-24] MEDS: fentaNYL 2500mcg/NS 250ml 250 ML IV SCH ×3 (03:59→14:43)
[2019-09-24 04:59] LABS: HEMATOCRIT 24.1 % (37.0-47.0); HEMOGLOBIN 7.5 G/DL (12.0-16.0); MEAN CORPUSCULAR VOLUME 103 FL (80-99); PLATELET COUNT 225 K/UL (150-450); RED BLOOD COUNT 2.34 M/UL (4.20-5.40); RED CELL DISTRIBUTION WIDTH 16.7 % (11.6-14.8); WHITE BLOOD COUNT 16.2 K/UL (4.8-10.8)
[2019-09-24 05:01] LABS: INR 1.3 (0.9-1.1)
[2019-09-24] MEDS: dilTIAZem HCl 60mg tab GT SCH ×3 (05:03→18:04)
[2019-09-24] MEDS: HydrALAZINE 50mg tab GT SCH ×3 (05:06→18:04)
[2019-09-24 05:07] LABS: ALANINE AMINOTRANSFERASE 9 U/L (12-78); ALBUMIN 2.1 G/DL (3.4-5.0); ALBUMIN/GLOBULIN RATIO 0.4 (1.0-2.7); ALKALINE PHOSPHATASE 158 U/L (46-116); ANION GAP 16 mmol/L (5-15); ASPARTATE AMINO TRANSFERASE 18 U/L (15-37); BILIRUBIN,TOTAL 0.3 MG/DL (0.2-1.0); BLOOD UREA NITROGEN 153 mg/dL (7-18); CARBON DIOXIDE 19 MMOL/L (21-32); CHLORIDE 111 MMOL/L (98-107); CREATININE 3.2 MG/DL (0.55-1.30); POTASSIUM 4.6 MMOL/L (3.5-5.1); SODIUM 146 MMOL/L (136-145)
[2019-09-24 05:34] LABS: PHOSPHORUS 4.4 MG/DL (2.5-4.9)
--- NOTE | 2019-09-24 07:43 | CDS Physician Query ---
Clarification is required for compliance, coding accuracy, and to reflect severity of illness for this patient Dear Dr. Cordero , Date: 09-24-2019 CDS: Antonio Davies GFR 20. Continue per current treatment plan. Dialysis and ultrafiltration is a consideration. September 20: Patient periodically agitated. Labs reviewed. Creatinine 2.4. Medication reviewed. Continue per consultants. Calculated creatinine clearance 21. May need isolated ultrafiltration on dialysis. Will discuss with PMD. Meanwhile hemoglobin is lower, defer transfusion to PMD. Please Clarify if you mean: Stages Description GFR [] CKD Stage 1 Caused by DM, HTN, etc. with kidney abnormality 90 mL/ min or more [] CKD Stage 2 Mild decrease in Kidney function 60 to 89 mL/min [] CKD Stage 3 Moderate decrease in kidney function 30- 59 [] CKD Stage 4 Severe decrease in kidney function 15-29 [*] CKD Stage 5 Kidney failure; requiring dialysis or transplantation < 15 [] ESRD Patient requiring dialysis for > 3 months or kidney transplant irrespective of level of GFR; Applicable for 1 year after kidney transplant [] Other: [] Comment/Explanation: Present on Admission: [*] Yes [] No [] Clinically Undetermined Physician signature Date Please also document in your Progress Notes and/or Discharge Summary and indicate if the condition was present on admission. MTDD
--- NOTE | 2019-09-24 08:40 | Infectious Diseases Prog Note ---
Assessment/Plan 49yo F with: Acute hypoxic resp failure: Now on vent Pneumonia, COVID19 neg x3 09/22 CXR: worsening BL pna 09/22 UA w/ persistent pyuria, now on HD, UCx p 09/19 V/Q scan, low probability of PE 09/18 Rapid COVID PCR neg 09/18 CT chest: Markedly suboptimal examination due to lack of IV contrast material. Bilateral pleural effusions, right greater than left, with bilateral lower lobe consolidation or volume loss. Ground glass densities in the upper lobes bilaterally. This is not specific. Tracheostomy. Increased superior mediastinal density. Stability of adenopathy cannot be excluded. Atherosclerotic change. Gastrostomy. Ascites. Left renal stent with left hydronephrosis and renal atrophy. 09/17 Chest US: Trace right and small left pleural effusions. No safe window identified for bedside thoracentesis. Note that the majority of the left pleural effusion is subpulmonic. 09/16 CXR: Worsening of right lung infiltrates and right effusion. V. duplex: NO DVT D-dimer elevated 09/15 Rapid COVID PCR neg 09/15 Sp cx ESBL P. mirablis 09/14 CXR: Bilateral airspace opacities, preferentially involving the right lung, consistent with multifocal infiltrate. Trace bilateral pleural effusions. No pneumothorax. Rapid COVID PCR neg GPC bacteremia, real vs contaminant; does have hx of infected PPM- could be a possibility- ro endocarditis 09/14 Bcx 03/19 S. epidermis; 09/15 Bcx NTD 2d echo: no vegetations seen UTI 09/14 u/a wbc tnct, nit neg, leuk +3; ucx >100k MDR P. stuarti (S Ceftriaxone, Meropenem) 09/22 UA w/ ongoing pyuria, unchanged Unstageable sacral ulceration Afebrile Leukocytosis, mild; fluctuates bt 12-13 JAVIER on CKD --> now on HD Renal US: Limited exam due to abdominal ascites and shadowing from bowel gas. CT recommended for more sensitive evaluation. Moderate right hydronephrosis. Increased renal parenchymal echogenicity suggesting intrinsic/ medical renal disease. Question indwelling left ureteral stent versus artifact. Bladder not visualized. 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 epi-11/2018, sp > 6weeks IV vancomycin 11/27 SP ABBIE: no evidence for vegetation on any of the valves 11/26/18 SP PPM removal: OR findings:The fibrous capsule enclosing the generator was then opened and there was a [id number] amount of yellowish fluid drainage. The generator was then removed.Atrial and ventricular leads were detached. The necrotic tissue of the pocket was then removed and the pocket was flushed with an antibiotic solution. Capsule, wound tissue and lead tip cx: Neg 2d echo: no vegetation seen US chest: 4.6 x 3.4 x 0.9 cm hypoechoic/anechoic area overlying left chest pacemaker power pack. This could represent either a discrete fluid collection or a focal area of very edematous tissue. Infected fluid pocket also possible. 11/18 Bcx 3/ S. epi; 11/20 Bcx neg; 11/24 Bcx Neg; 11/27 Bcx Neg Hx of PNA 11/2019? sp cx PsA (arnett S), ABC (I Ceftriaxone; otherwise negative) Sp cx MRSA, ABC (I Ceftriaxone; otherwise S) PMH: Afib HTN Dysphagia sp GT Aortic dissection s/p repair 2017, S/p PPM Parkinson's Disease Schizophrenia Anxiety COPD Chronic resp failure s/p trach Hx of tracheal bleeding [place] Plan: Continue Meropenem #8 Continue IV Vancomycin #9 F/u arnett-cx from 09/22: BCx, UCx, Sputum cx given worsening WBC Aggressive volume removal as tolerated by HD, BNP >35,000 09/22/19 SP / SP Cefepime #3, Levaquin #3 -Monitor CBC/CMP, temperatures -ICU/ trach/ peg care -Aspiration precautions D/w RN Thank you for this consultation. Will continue to follow along with you. Subjective Allergies: Coded Allergies: No Known Allergies (Unverified , 10/10/17) Tmax 100.5 Sedated on vent, FiO2 50% PEEP 10, satting 98% WBC 16 from 17 Objective Last 24 Hour Vital Signs Date Time Temp Pulse Resp B/P (MAP) Pulse Ox O2 Delivery O2 Flow Rate FiO2 09/24/19 07:29 65 24 96 Mechanical Ventilator 100 75 24 09/24/19 07:00 63 24 156/63 (94) 94 09/24/19 07:00 24 156/63 Mechanical Ventilator 80 09/24/19 06:30 63 25 157/65 (95) 89 09/24/19 06:00 26 154/55 Mechanical Ventilator 80 09/24/19 06:00 63 26 154/55 (88) 92 09/24/19 05:06 163/70 09/24/19 05:03 163/70 09/24/19 05:00 24 156/66 Mechanical Ventilator 80 09/24/19 05:00 64 24 156/66 (96) 93 09/24/19 04:41 64 24 100 09/24/19 04:30 64 24 161/69 (99) 95 09/24/19 04:02 26 158/65 Mechanical Ventilator 80 09/24/19 04:00 66 23 163/67 (99) 95 09/24/19 04:00 Mechanical Ventilator 09/24/19 04:00 66 09/24/19 04:00 80 09/24/19 03:30 69 24 169/69 (102) 96 09/24/19 03:00 66 26 174/77 (109) 95 09/24/19 03:00 26 174/77 Mechanical Ventilator 80 09/24/19 02:53 69 24 100 09/24/19 02:30 59 24 148/59 (88) 98 09/24/19 02:00 25 145/58 Mechanical Ventilator 80 09/24/19 02:00 58 24 148/58 (88) 98 09/24/19 01:30 58 23 138/59 (85) 98 09/24/19 01:00 59 25 145/58 (87) 98 09/24/19 01:00 24 124/56 Mechanical Ventilator 80 09/24/19 00:57 88 24 98 Mechanical Ventilator 100 90 24 09/24/19 00:30 59 24 143/63 (89) 91 09/24/19 00:00 59 09/24/19 00:00 26 124/56 Mechanical Ventilator 80 09/24/19 00:00 99.7 59 24 124/56 (78) 60 09/24/19 00:00 Mechanical Ventilator 09/24/19 00:00 80 09/23/19 23:02 154/65 09/23/19 23:01 154/65 09/23/19 23:00 24 160/67 Mechanical Ventilator 80 09/23/19 23:00 65 24 160/67 (98) 96 09/23/19 22:48 64 26 100 8/10/20 22:30 64 24 153/65 (94) 95 09/23/19 22:00 63 25 148/65 (92) 94 09/23/19 22:00 25 148/65 Mechanical Ventilator 80 09/23/19 21:00 64 24 148/66 (93) 94 20 21:00 24 148/66 Mechanical Ventilator 80 09/23/19 20:36 73 29 100 09/23/19 20:30 74 24 169/66 (100) 94 09/23/19 20:05 182/69 09/23/19 20:00 81 26 182/69 (106) 95 09/23/19 20:00 Mechanical Ventilator 09/23/19 20:00 26 182/69 Mechanical Ventilator 80 09/23/19 20:00 81 09/23/19 20:00 80 09/23/19 19:30 80 27 160/48 (85) 95 09/23/19 19:25 100.0 09/23/19 19:20 72 24 98 Mechanical Ventilator 100 74 24 09/23/19 19:00 24 149/60 Mechanical Ventilator 80 09/23/19 19:00 75 25 149/60 (89) 98 09/23/19 18:30 100.5 72 25 155/57 (89) 96 09/23/19 18:00 24 164/82 Mechanical Ventilator 80 09/23/19 18:00 73 26 176/67 (103) 98 09/23/19 17:58 164/82 09/23/19 17:58 69 164/82 09/23/19 17:30 75 23 180/68 (105) 97 09/23/19 17:00 79 28 179/66 (103) 95 09/23/19 17:00 24 179/66 Mechanical Ventilator 80 09/23/19 16:40 74 29 100 09/23/19 16:30 78 26 188/71 (110) 90 09/23/19 16:00 Mechanical Ventilator 09/23/19 16:00 80 09/23/19 16:00 100.0 76 25 173/58 (96) 91 09/23/19 16:00 76 09/23/19 15:30 78 21 172/77 (108) 93 09/23/19 15:24 70 24 90 09/23/19 15:00 24 147/50 Mechanical Ventilator 80 09/23/19 15:00 67 24 147/50 (82) 98 09/23/19 14:30 73 21 156/64 (94) 100 09/23/19 14:15 74 23 142/71 (94) 98 09/23/19 14:00 24 170/59 Mechanical Ventilator 80 09/23/19 14:00 78 26 154/74 (100) 97 09/23/19 13:30 65 24 146/47 (80) 99 09/23/19 13:00 64 24 141/51 (81) 100 09/23/19 13:00 24 141/51 Mechanical Ventilator 90 09/23/19 12:43 67 24 96 Mechanical Ventilator 90 69 24 09/23/19 12:30 100.0 68 24 145/48 (80) 97 09/23/19 12:09 66 153/50 09/23/19 12:08 153/50 09/23/19 12:00 90 09/23/19 12:00 Mechanical Ventilator 09/23/19 12:00 100.5 67 23 153/50 (84) 100 09/23/19 12:00 67 09/23/19 11:30 67 24 153/52 (85) 100 09/23/19 11:00 67 24 159/51 (87) 99 09/23/19 11:00 24 153/50 Mechanical Ventilator 90 09/23/19 10:55 67 24 100 09/23/19 10:30 66 24 176/57 (96) 100 09/23/19 10:00 65 24 168/55 (92) 100 09/23/19 10:00 24 168/55 Non-Rebreather 90 09/23/19 09:30 68 23 146/62 (90) 100 09/23/19 09:01 68 27 100 09/23/19 09:00 70 21 163/57 (92) 100 09/23/19 09:00 24 164/61 Mechanical Ventilator 100 09/23/19 08:56 69 160/51 Height (Feet): 5 Height (Inches): 5.00 Weight (Pounds): 145 Gen: Older woman, sedated on vent CV: RRR Pulm: Mild rhonchi BL anteriorly on vent Abd: Soft, non-distended Ext: No c/c Neuro: Sedated Microbiology Date/Time Source Procedure Growth Status 09/23/19 08:38 Straight Cath Urine Culture - Preliminary Resulted Laboratory Tests Test 09/23/19 08:38 09/24/19 02:45 09/24/19 08:03 Urine Color Brown Urine Appearance Slightly cloudy Urine pH 5 (4.5-8.0) Urine Specific [place] 1.015 (1.005-1.035) Urine Protein 4+ (NEGATIVE) H Urine Glucose (UA) Negative (NEGATIVE) Urine Ketones 1+ (NEGATIVE) H Urine Blood 5+ (NEGATIVE) H Urine Nitrite Positive (NEGATIVE) H Urine Bilirubin 1+ (NEGATIVE) H Urine Ictotest Negative (NEGATIVE) Urine Urobilinogen 1 MG/DL (0.0-1.0) H Urine Leukocyte Esterase 3+ (NEGATIVE) H Urine RBC Tntc /HPF (0 - 2) H Urine WBC 60-80 /HPF (0 - 2) H Urine Squamous Epithelial Cells Few /LPF (NONE/OCC) Urine Bacteria Moderate /HPF (NONE) H White Blood Count 16.2 K/UL (4.8-10.8) H Red Blood Count 2.34 M/UL (4.20-5.40) L Hemoglobin 7.5 G/DL (12.0-16.0) L Hematocrit 24.1 % (37.0-47.0) L Mean Corpuscular Volume 103 FL (80-99) H Mean Corpuscular Hemoglobin 32.1 PG (27.0-31.0) H Mean Corpuscular Hemoglobin Concent 31.2 G/DL (32.0-36.0) L Red Cell Distribution Width 16.7 % (11.6-14.8) H Platelet Count 225 K/UL (150-450) Mean Platelet Volume 5.5 FL (6.5-10.1) L Neutrophils (%) (Auto) % (45.0-75.0) Lymphocytes (%) (Auto) % (20.0-45.0) Monocytes (%) (Auto) % (1.0-10.0) Eosinophils (%) (Auto) % (0.0-3.0) Basophils (%) (Auto) % (0.0-2.0) Neutrophils % (Manual) Pending Lymphocytes % (Manual) Pending Platelet Estimate Pending Platelet Morphology Pending Prothrombin Time 14.0 SEC (9.30-11.50) H Prothromb Time International Ratio 1.3 (0.9-1.1) H Activated Partial Thromboplast Time 31 SEC (23-33) Sodium Level 146 MMOL/L (136-145) H Potassium Level 4.6 MMOL/L (3.5-5.1) Chloride Level 111 MMOL/L (98-107) H Carbon Dioxide Level 19 MMOL/L (21-32) L Anion Gap 16 mmol/L (5-15) H Blood Urea Nitrogen 153 mg/dL (7-18) H Creatinine 3.2 MG/DL (0.55-1.30) H Estimat Glomerular Filtration Rate 15.5 mL/min (>60) Glucose Level 89 MG/DL (74-106) Uric Acid 9.2 MG/DL (2.6-7.2) H Calcium Level 9.0 MG/DL (8.5-10.1) Phosphorus Level 4.4 MG/DL (2.5-4.9) Magnesium Level 3.4 MG/DL (1.8-2.4) H Total Bilirubin 0.3 MG/DL (0.2-1.0) Aspartate Amino Transf (AST/SGOT) 18 U/L (15-37) Alanine Aminotransferase (ALT/SGPT) 9 U/L (12-78) L Alkaline Phosphatase 158 U/L (46-116) H C-Reactive Protein, Quantitative 11.7 mg/dL (0.00-0.90) H Pro-B-Type Natriuretic Peptide > 85075 pg/mL (0-125) H Total Protein 6.9 G/DL (6.4-8.2) Albumin 2.1 G/DL (3.4-5.0) L Globulin 4.8 g/dL Albumin/Globulin Ratio 0.4 (1.0-2.7) L Random Vancomycin Level 22.1 ug/mL Arterial Blood pH 7.191 (7.350-7.450) Arterial Blood Partial Pressure CO2 45.7 mmHg (35.0-45.0) H Arterial Blood Partial Pressure O2 61.8 mmHg (75.0-100.0) L Arterial Blood HCO3 17.1 mmol/L (22.0-26.0) *L Arterial Blood Oxygen Saturation 89.0 % (95-100) *L Arterial Blood Base Excess -10.4 (-2-2) *L Rojas Test Positive Current Medications Medications (Trade) Dose Ordered Sig/Penny Route PRN Reason Start Time Stop Time Status Last Admin Dose Admin Acetaminophen (Tylenol) 325 mg Q6H PRN GT Temp >100.5 09/23/19 10:45 10/23/19 10:44 09/23/19 18:55 Acetaminophen/ Hydrocodone Bitart ([place] 10/325) 1 tab Q6H PRN GT For Pain 09/21/19 13:30 09/26/19 13:29 09/23/19 03:29 Acetylcysteine (Mucomyst) 200 mg Q6HRT N 09/18/19 19:00 12/17/19 18:59 09/24/19 08:04 Albuterol/ Ipratropium (Albuterol/ Ipratropium) 3 ml Q6HRT N 09/21/19 13:00 09/24/19 12:59 09/24/19 08:04 Chlorhexidine Gluconate (Ling-Hex 2%) 1 applic DAILY@2000 TOPIC 09/23/19 20:00 12/22/19 19:59 09/23/19 19:35 Clonazepam (KlonoPIN) 0.5 mg Q12HR GT 09/21/19 21:00 09/26/19 08:59 09/23/19 20:03 Diltiazem HCl (Cardizem Tab) 60 mg EVERY 6 HOURS GT 09/17/19 12:00 10/15/19 11:59 09/24/19 05:03 Docusate Sodium (Colace) 100 mg TID GT 09/17/19 13:00 10/15/19 08:59 09/23/19 17:57 Epoetin Gelacio (Epoetin Gelacio-EPBX(NON ESRD)) 10,000 unit MON-MON-MON SUBQ 09/18/19 21:00 12/15/19 20:59 09/23/19 20:05 Fentanyl Citrate 250 ml @ 0 mls/hr Q24H IV 09/21/19 09:30 12/20/19 09:29 09/24/19 04:02 Heparin Sodium (Porcine) (Heparin 5000 units/ml) 5,000 units EVERY 12 HOURS SUBQ 09/17/19 21:00 10/30/19 08:59 09/23/19 20:03 Heparin Sodium/ Sodium Chloride (Heparin 1000 units/500ml Premix) 1,000 unit ONCE PRN INJ PROCEDURE 09/23/19 15:56 09/24/19 23:59 Hydralazine HCl (Apresoline) 10 mg Q4H PRN IV BP over 160 systolic 09/17/19 11:15 12/14/19 11:14 09/22/19 16:52 Hydralazine HCl (Apresoline) 50 mg Q6HR GT 09/17/19 12:00 12/15/19 17:59 09/24/19 05:06 Ipratropium [place] (Atrovent) 500 mcg Q4H PRN HHN Shortness of Breath 09/21/19 13:30 09/26/19 13:29 Lidocaine HCl (Xylocaine 1% 30ml) 30 ml ONCE PRN INJ procedure 09/23/19 15:56 09/24/19 23:59 Meropenem 500 mg/ Sodium Chloride 55 ml @ 110 mls/hr EVERY 12 HOURS IVPB 09/24/19 10:00 09/29/19 09:59 Metoprolol Tartrate (Lopressor) 50 mg EVERY 12 HOURS GT 09/17/19 21:00 12/14/19 08:59 09/23/19 20:05 Midazolam HCl (Versed 2mg/2ml vial) 1 mg Q4H PRN IVP For Anxiety 09/21/19 09:30 12/20/19 09:29 09/23/19 15:45 Olanzapine (ZyPREXA) 2.5 mg DAILY GT 09/18/19 09:00 10/30/19 08:59 09/23/19 08:56 Pantoprazole (Protonix) 40 mg EVERY 12 HOURS IVP 09/21/19 21:00 10/21/19 20:59 09/23/19 20:04 Sertraline HCl (Zoloft) 100 mg BEDTIME GT 09/17/19 21:00 10/15/19 20:59 09/23/19 20:06 Vancomycin HCl ([facility] pharmacy to dose) 1 ea DAILY PRN MISC Per rx protocol 09/18/19 09:00 10/16/19 13:44 Ro Pack M.D. Sep 24, 2019 08:40
--- NOTE | 2019-09-24 08:49 | Nephrology Progress Note ---
Assessment/Plan Problem List: (1) JAVIER (acute kidney injury) (2) Renal failure (ARF), acute on chronic (3) Dehydration (4) Electrolyte imbalance (5) Anemia (6) Respiratory failure, acute and chronic (7) COPD with exacerbation Assessment Patient is presented with sepsis and pneumonia and UTI Patient has acute renal failure, possible underlying chronic kidney failure Severe anemia Electrolyte imbalances: Hyponatremia, hypo-kalemia Chronic respiratory failure, COPD exacerbation Plan September 23: Lab reviewed. ABG reviewed. Patient acidotic. IV bicarb 1 dose is given. Patient has dialysis catheter. Will order dialysis for ultrafiltration and correction of acid-base. Discussed with ERASMO Mohr. September 22: Labs reviewed. Potassium high. Kayexalate and Reglan given. Will discuss with the consultants regarding initiation of dialysis. September 21: Patient is being sedated. Labs reviewed. Potassium supplement discontinued. GFR 20. Continue per current treatment plan. Dialysis and ultrafiltration is a consideration. September 20: Patient periodically agitated. Labs reviewed. Creatinine 2.4. Medication reviewed. Continue per consultants. Calculated creatinine clearance 21. May need isolated ultrafiltration on dialysis. Will discuss with PMD. Meanwhile hemoglobin is lower, defer transfusion to PMD. September 19: DC IV fluid. Zaroxolyn via GT tube. Potassium supplement. Attempt to diurese. Chest CT as bilateral pleural effusion. If diuresis unsuccessful, will consider dialysis and ultrafiltration. September 18: Potassium supplement IV given. Hemoglobin stable. Patient remains full code. Continue per consultants. Previously: Potassium supplement IV Slow IV hydration Epogen subcu Adjust blood pressure medication IV fluid, rate adjusted Norman catheter, intake and output Monitor renal parameters Avoid nephrotoxic's Antibiotics Per orders 2D echocardiogram Kidney ultrasound Subjective ROS Limited/Unobtainable: Yes Objective Objective Last 24 Hour Vital Signs Date Time Temp Pulse Resp B/P (MAP) Pulse Ox O2 Delivery O2 Flow Rate FiO2 09/24/19 07:29 65 24 96 Mechanical Ventilator 100 75 24 09/24/19 07:00 63 24 156/63 (94) 94 09/24/19 07:00 24 156/63 Mechanical Ventilator 80 09/24/19 06:30 63 25 157/65 (95) 89 09/24/19 06:00 26 154/55 Mechanical Ventilator 80 09/24/19 06:00 63 26 154/55 (88) 92 09/24/19 05:06 163/70 09/24/19 05:03 163/70 09/24/19 05:00 24 156/66 Mechanical Ventilator 80 09/24/19 05:00 64 24 156/66 (96) 93 09/24/19 04:41 64 24 100 09/24/19 04:30 64 24 161/69 (99) 95 09/24/19 04:02 26 158/65 Mechanical Ventilator 80 09/24/19 04:00 66 23 163/67 (99) 95 09/24/19 04:00 Mechanical Ventilator 09/24/19 04:00 66 09/24/19 04:00 80 09/24/19 03:30 69 24 169/69 (102) 96 09/24/19 03:00 66 26 174/77 (109) 95 09/24/19 03:00 26 174/77 Mechanical Ventilator 80 09/24/19 02:53 69 24 100 09/24/19 02:30 59 24 148/59 (88) 98 09/24/19 02:00 25 145/58 Mechanical Ventilator 80 09/24/19 02:00 58 24 148/58 (88) 98 09/24/19 01:30 58 23 138/59 (85) 98 09/24/19 01:00 59 25 145/58 (87) 98 09/24/19 01:00 24 124/56 Mechanical Ventilator 80 09/24/19 00:57 88 24 98 Mechanical Ventilator 100 90 24 09/24/19 00:30 59 24 143/63 (89) 91 09/24/19 00:00 59 09/24/19 00:00 26 124/56 Mechanical Ventilator 80 09/24/19 00:00 99.7 59 24 124/56 (78) 60 09/24/19 00:00 Mechanical Ventilator 09/24/19 00:00 80 09/23/19 23:02 154/65 09/23/19 23:01 154/65 09/23/19 23:00 24 160/67 Mechanical Ventilator 80 09/23/19 23:00 65 24 160/67 (98) 96 09/23/19 22:48 64 26 100 09/23/19 22:30 64 24 153/65 (94) 95 09/23/19 22:00 63 25 148/65 (92) 94 09/23/19 22:00 25 148/65 Mechanical Ventilator 80 09/23/19 21:00 64 24 148/66 (93) 94 09/23/19 21:00 24 148/66 Mechanical Ventilator 80 09/23/19 20:36 73 29 100 09/23/19 20:30 74 24 169/66 (100) 94 09/23/19 20:05 182/69 09/23/19 20:00 81 26 182/69 (106) 95 09/23/19 20:00 Mechanical Ventilator 09/23/19 20:00 26 182/69 Mechanical Ventilator 80 09/23/19 20:00 81 09/23/19 20:00 80 09/23/19 19:30 80 27 160/48 (85) 95 09/23/19 19:25 100.0 09/23/19 19:20 72 24 98 Mechanical Ventilator 100 74 24 09/23/19 19:00 24 149/60 Mechanical Ventilator 80 09/23/19 19:00 75 25 149/60 (89) 98 09/23/19 18:30 100.5 72 25 155/57 (89) 96 09/23/19 18:00 24 164/82 Mechanical Ventilator 80 09/23/19 18:00 73 26 176/67 (103) 98 09/23/19 17:58 164/82 09/23/19 17:58 69 164/82 09/23/19 17:30 75 23 180/68 (105) 97 09/23/19 17:00 79 28 179/66 (103) 95 09/23/19 17:00 24 179/66 Mechanical Ventilator 80 09/23/19 16:40 74 29 100 09/23/19 16:30 78 26 188/71 (110) 90 09/23/19 16:00 Mechanical Ventilator 09/23/19 16:00 80 09/23/19 16:00 100.0 76 25 173/58 (96) 91 09/23/19 16:00 76 09/23/19 15:30 78 21 172/77 (108) 93 09/23/19 15:24 70 24 90 09/23/19 15:00 24 147/50 Mechanical Ventilator 80 09/23/19 15:00 67 24 147/50 (82) 98 09/23/19 14:30 73 21 156/64 (94) 100 09/23/19 14:15 74 23 142/71 (94) 98 09/23/19 14:00 24 170/59 Mechanical Ventilator 80 09/23/19 14:00 78 26 154/74 (100) 97 09/23/19 13:30 65 24 146/47 (80) 99 09/23/19 13:00 64 24 141/51 (81) 100 09/23/19 13:00 24 141/51 Mechanical Ventilator 90 09/23/19 12:43 67 24 96 Mechanical Ventilator 90 69 24 09/23/19 12:30 100.0 68 24 145/48 (80) 97 09/23/19 12:09 66 153/50 09/23/19 12:08 153/50 09/23/19 12:00 90 09/23/19 12:00 Mechanical Ventilator 09/23/19 12:00 100.5 67 23 153/50 (84) 100 09/23/19 12:00 67 09/23/19 11:30 67 24 153/52 (85) 100 09/23/19 11:00 67 24 159/51 (87) 99 09/23/19 11:00 24 153/50 Mechanical Ventilator 90 09/23/19 10:55 67 24 100 09/23/19 10:30 66 24 176/57 (96) 100 09/23/19 10:00 65 24 168/55 (92) 100 09/23/19 10:00 24 168/55 Non-Rebreather 90 09/23/19 09:30 68 23 146/62 (90) 100 09/23/19 09:01 68 27 100 09/23/19 09:00 70 21 163/57 (92) 100 09/23/19 09:00 24 164/61 Mechanical Ventilator 100 09/23/19 08:56 69 160/51 Intake and Output 09/23/19 09/24/19 19:00 07:00 Intake Total 1163 ml 834 ml Output Total 390 ml 95 ml Balance 773 ml 739 ml Intake Free Water 30 ml IV Total 223 ml 264 ml Tube Feeding 520 ml 480 ml Other 420 ml 60 ml Output Urine Total 390 ml 95 ml Laboratory Tests 09/24/19 02:45: White Blood Count 16.2H, Red Blood Count 2.34L, Hemoglobin 7.5L, Hematocrit 24.1L, Mean Corpuscular Volume 103H, Mean Corpuscular Hemoglobin 32.1H, Mean Corpuscular Hemoglobin Concent 31.2L, Red Cell Distribution Width 16.7H, Platelet Count 225, Mean Platelet Volume 5.5L, Neutrophils (%) (Auto) , Lymphocytes (%) (Auto) , Monocytes (%) (Auto) , Eosinophils (%) (Auto) , Basophils (%) (Auto) , Neutrophils % (Manual) [Pending], Lymphocytes % (Manual) [Pending], Platelet Estimate [Pending], Platelet Morphology [Pending], Prothrombin Time 14.0H, Prothromb Time International Ratio 1.3H, Activated Partial Thromboplast Time 31, Sodium Level 146H, Potassium Level 4.6, Chloride Level 111H, Carbon Dioxide Level 19L, Anion Gap 16H, Blood Urea Nitrogen 153H, Creatinine 3.2H, Estimat Glomerular Filtration Rate 15.5, Glucose Level 89, Uric Acid 9.2H, Calcium Level 9.0, Phosphorus Level 4.4, Magnesium Level 3.4H, Total Bilirubin 0.3, Aspartate Amino Transf (AST/SGOT) 18, Alanine Aminotransferase (ALT/SGPT) 9L, Alkaline Phosphatase 158H, C-Reactive Protein, Quantitative 11.7H, Pro-B-Type Natriuretic Peptide > [id number], Total Protein 6.9, Albumin 2.1L, Globulin 4.8, Albumin/Globulin Ratio 0.4L, Random Vancomycin Level 22.1 09/24/19 08:03: Arterial Blood pH 7.191*L, Arterial Blood Partial Pressure CO2 45.7H, Arterial Blood Partial Pressure O2 61.8L, Arterial Blood HCO3 17.1*L, Arterial Blood Oxygen Saturation 89.0*L, Arterial Blood Base Excess -10.4*L, Rojas Test Positive Height (Feet): 5 Height (Inches): 5.00 Weight (Pounds): 145 General Appearance: no apparent distress, lethargic EENT: other - Trach to vent Cardiovascular: normal rate Respiratory/Chest: decreased breath sounds Abdomen: distended Johnny Houston MD Sep 24, 2019 08:49
[2019-09-24] MEDS: Metoprolol Tartrate 50mg tab GT SCH ×2 (09:00→21:10)
[2019-09-24] MEDS ORDERED: Sodium Bicarbonate 50ml Carp IV SCH (09:00)
[2019-09-24] MEDS: Heparin 5000 units/ml inj SUBQ SCH ×2 (09:33→21:12)
[2019-09-24] MEDS: OLANZapine 2.5mg tab GT SCH (09:34)
[2019-09-24] MEDS: Docusate 100mg/10ml Liq GT SCH ×3 (09:35→18:03)
[2019-09-24] MEDS: clonazePAM 0.5mg tab GT SCH ×2 (09:35→21:10)
[2019-09-24] MEDS: Pantoprazole Inj IVP SCH ×2 (09:35→21:10)
[2019-09-24] MEDS: Meropenem 500mg in NS 55ml IVPB SCH ×2 (09:46→21:10)
--- NOTE | 2019-09-24 11:21 | Pulmonolgy Critical Care Note ---
Yara Castro LEARNING SUPPORT SPECIALIST 09/24/19 1121: Critical Care - Asmt/Plan Assessment/Plan: ASSESSMENT Acute on chronic hypoxemic respiratory failure, now on vent Tracheostomy status, s/p change to cuffed trach Sepsis Pulmonary edema pleural effusion worsening Pneumonia UTI CHF ? cardiorenal COPD Acute kidney injury and chronic kidney disease Hypertension Atrial fibrillation Moderate pulm HTN Moderate AR Dysphagia , feeding by G-tube Electrolyte abnormalities Anemia Toxic metabolic encephalopathy likely due to sepsis and ARF HTN PAF PLAN OF CARE ICU on vent AC trach changed 8/4 pm from uncuffed to cuffed Shiley#7 XLT repeat rapid COVID 19 09/18 -> NGT CT chest w/out contrast: - Bilateral pleural effusions, right greater than left, with bilateral lower lobe consolidation or volume loss. -Ground-glass densities in the upper lobes bilaterally. This is not specific. -Tracheostomy. -Increased superior mediastinal density. Stability of adenopathy cannot be excluded. -Atherosclerotic change. -Gastrostomy. -Ascites. -Left renal stent with left hydronephrosis and renal atrophy. VQ scan -> low probability for PE CXR 09/19 no change ABG 09/19 with acidosis and hypoxia, PEEP increased to 12 CXR 09/20 worse with worsening R pl effusion, ABG 09/21 met acidosis, no hypoxia, settings changed to [id number] and taper O2 needs as tolerated ABG this am 09/23 noted, now on FiO2 80% CXR 09/21 ->Slight interval improvement in aeration of the lungs. CXR 09/22->, slight worsening of bilateral infiltrates, likely pneumonia trach care ,pulmonary toilet total rapid COVID 19 NGT x3 sedation with fentanyl gtt and Versed prn need diuresis or HD s/p placement of temp HD catheter had bicarb per nephro -> HD plan for today 09/23 abx as per ID-Meropenem, Vanco SCX 09/15 + Proteus UCX 2 + Providencia BCX 09/14 Staph epidermidis, BCX 09/15 NGTD repeated UCX 09/22 pending aspiration precautions venous Duplex BLE -> NGT DVT prophylaxis pulm toilet, Mucomyst was prior ordered to help in loosening secretions monitor volumes was on gentle IVF-> dc monitor renal parameters, lytes, correct lytes as needed , avoid nephrotoxics hypo Na resolved - per nephro management K replaced this am as per nephro s/ p Zaroxyline 09/19 s/p prior diuretic-Lasix ECHO with pEF , moderate pulm HTN and moderate AR BP management with current regimen of BB, Cardizem and Hydralazine, remains in SR monitor HH with goal to keep Hgb >7, heme on board on EPO supportive care pain management wound care bowel regimen thank you for a consult Critical Care - Objective Last 24 Hour Vital Signs Date Time Temp Pulse Resp B/P (MAP) Pulse Ox O2 Delivery O2 Flow Rate FiO2 09/24/19 11:08 70 24 80 09/24/19 11:00 71 32 156/57 (90) 98 09/24/19 10:30 73 22 158/58 (91) 97 09/24/19 10:15 72 24 157/55 (89) 98 09/24/19 10:00 73 20 157/53 (87) 97 09/24/19 09:40 165/60 09/24/19 09:30 62 24 165/60 (95) 98 09/24/19 09:24 64 26 100 09/24/19 09:00 63 25 165/61 (95) 98 09/24/19 09:00 62 165/60 09/24/19 08:30 65 20 160/71 (100) 98 09/24/19 08:00 99.0 65 24 162/64 (96) 93 09/24/19 08:00 80 09/24/19 07:30 64 24 161/68 (99) 93 09/24/19 07:29 65 24 96 Mechanical Ventilator 100 75 24 09/24/19 07:00 63 24 156/63 (94) 94 09/24/19 07:00 24 156/63 Mechanical Ventilator 80 09/24/19 06:30 63 25 157/65 (95) 89 09/24/19 06:00 26 154/55 Mechanical Ventilator 80 09/24/19 06:00 63 26 154/55 (88) 92 09/24/19 05:06 163/70 09/24/19 05:03 163/70 09/24/19 05:00 24 156/66 Mechanical Ventilator 80 09/24/19 05:00 64 24 156/66 (96) 93 09/24/19 04:41 64 24 100 09/24/19 04:30 64 24 161/69 (99) 95 09/24/19 04:02 26 158/65 Mechanical Ventilator 80 09/24/19 04:00 66 23 163/67 (99) 95 09/24/19 04:00 Mechanical Ventilator 09/24/19 04:00 66 09/24/19 04:00 80 09/24/19 03:30 69 24 169/69 (102) 96 09/24/19 03:00 66 26 174/77 (109) 95 09/24/19 03:00 26 174/77 Mechanical Ventilator 80 09/24/19 02:53 69 24 100 09/24/19 02:30 59 24 148/59 (88) 98 09/24/19 02:00 25 145/58 Mechanical Ventilator 80 09/24/19 02:00 58 24 148/58 (88) 98 09/24/19 01:30 58 23 138/59 (85) 98 09/24/19 01:00 59 25 145/58 (87) 98 09/24/19 01:00 24 124/56 Mechanical Ventilator 80 09/24/19 00:57 88 24 98 Mechanical Ventilator 100 90 24 09/24/19 00:30 59 24 143/63 (89) 91 09/24/19 00:00 59 09/24/19 00:00 26 124/56 Mechanical Ventilator 80 09/24/19 00:00 99.7 59 24 124/56 (78) 60 09/24/19 00:00 Mechanical Ventilator 09/24/19 00:00 80 09/23/19 23:02 154/65 09/23/19 23:01 154/65 09/23/19 23:00 24 160/67 Mechanical Ventilator 80 09/23/19 23:00 65 24 160/67 (98) 96 09/23/19 22:48 64 26 100 09/23/19 22:30 64 24 153/65 (94) 95 09/23/19 22:00 63 25 148/65 (92) 94 09/23/19 22:00 25 148/65 Mechanical Ventilator 80 09/23/19 21:00 64 24 148/66 (93) 94 09/23/19 21:00 24 148/66 Mechanical Ventilator 80 09/23/19 20:36 73 29 100 09/23/19 20:30 74 24 169/66 (100) 94 09/23/19 20:05 182/69 09/23/19 20:00 81 26 182/69 (106) 95 09/23/19 20:00 Mechanical Ventilator 09/23/19 20:00 26 182/69 Mechanical Ventilator 80 09/23/19 20:00 81 09/23/19 20:00 80 09/23/19 19:30 80 27 160/48 (85) 95 09/23/19 19:25 100.0 09/23/19 19:20 72 24 98 Mechanical Ventilator 100 74 24 09/23/19 19:00 24 149/60 Mechanical Ventilator 80 09/23/19 19:00 75 25 149/60 (89) 98 09/23/19 18:30 100.5 72 25 155/57 (89) 96 09/23/19 18:00 24 164/82 Mechanical Ventilator 80 09/23/19 18:00 73 26 176/67 (103) 98 09/23/19 17:58 164/82 09/23/19 17:58 69 164/82 09/23/19 17:30 75 23 180/68 (105) 97 09/23/19 17:00 79 28 179/66 (103) 95 09/23/19 17:00 24 179/66 Mechanical Ventilator 80 09/23/19 16:40 74 29 100 09/23/19 16:30 78 26 188/71 (110) 90 09/23/19 16:00 Mechanical Ventilator 09/23/19 16:00 80 09/23/19 16:00 100.0 76 25 173/58 (96) 91 09/23/19 16:00 76 09/23/19 15:30 78 21 172/77 (108) 93 09/23/19 15:24 70 24 90 09/23/19 15:00 24 147/50 Mechanical Ventilator 80 09/23/19 15:00 67 24 147/50 (82) 98 09/23/19 14:30 73 21 156/64 (94) 100 09/23/19 14:15 74 23 142/71 (94) 98 09/23/19 14:00 24 170/59 Mechanical Ventilator 80 09/23/19 14:00 78 26 154/74 (100) 97 09/23/19 13:30 65 24 146/47 (80) 99 09/23/19 13:00 64 24 141/51 (81) 100 09/23/19 13:00 24 141/51 Mechanical Ventilator 90 09/23/19 12:43 67 24 96 Mechanical Ventilator 90 69 24 09/23/19 12:30 100.0 68 24 145/48 (80) 97 09/23/19 12:09 66 153/50 09/23/19 12:08 153/50 09/23/19 12:00 90 09/23/19 12:00 Mechanical Ventilator 09/23/19 12:00 100.5 67 23 153/50 (84) 100 09/23/19 12:00 67 09/23/19 11:30 67 24 153/52 (85) 100 Objective: General Appearance: no apparent distress, bedridden middle age chronically ill looking female on vent AC 500-24-80% PEEP 10, sedated Lines, tubes and drains: peripheral HEENT: normocephalic, atraumatic, anicteric, status post trach - Shiley #7 cuffed XLT, secretions small amount, velasco color , thick consistency Respiratory/Chest: no accessory muscle use, few scattered rhonchi bilaterally , tachypneic Cardiovascular/Chest: normal rate, regular rhythm - SR on tele Abdomen: normal bowel sounds, non tender, soft, G tube Genitourinary/Rectal: [place] Extremities: no edema Skin Exam: warm/dry, multiple tattoos all over the body Neurologic: abnormal gait, restless Musculoskeletal: atrophy - BLE Micro: Microbiology Date/Time Source Procedure Growth Status 09/23/19 08:38 Sputum Gram Stain - Final Resulted 09/23/19 08:38 Sputum Sputum Culture Pending Resulted 09/23/19 08:38 Straight Cath Urine Culture - Preliminary Resulted Critical Care - Subjective ROS Limited/Unobtainable: Yes Interval Events: now on FiO2 80% ABG with met acidosis CXR for this am pending temp HD catheter placed, bicarb given HD plan for today fevers yesterday , currently afebrile leuk with small trend down Condition: critical IV Access: central - L jugular HD catheter EKG Rhythm: Sinus Rhythm FI02: 80 Vent Support Breath Rate: 24 Vent Support Mode: AC Vent Tidal Volume: 500 Sputum Amount: Small PEEP: 10.0 PIP: 44 Drips: Fentanyl gtt 260 mcg/hr Tube Feeding Amount: 40 I&O: Intake and Output 09/23/19 09/24/19 19:00 07:00 Intake Total 1163 ml 834 ml Output Total 390 ml 95 ml Balance 773 ml 739 ml Intake Free Water 30 ml IV Total 223 ml 264 ml Tube Feeding 520 ml 480 ml Other 420 ml 60 ml Output Urine Total 390 ml 95 ml CXR: 09/22 , slight worsening of bilateral infiltrates, likely pneumonia Juve Martinez MD 09/25/19 1131: Critical Care - Asmt/Plan Assessment/Plan: Patient seen and examined with LEARNING SUPPORT SPECIALIST. Agree with above A&P as it reflects our joint deliberations. Yara Castro NP Sep 24, 2019 11:21 Juve Martinez MD Sep 25, 2019 11:31
--- NOTE | 2019-09-24 12:45 | Surgery Progress Note ---
Surgery Progress Note Subjective Additional Comments leukocytosis anemia HD line okay receiving HD now comfortable Objective Last 24 Hour Vital Signs Date Time Temp Pulse Resp B/P (MAP) Pulse Ox O2 Delivery O2 Flow Rate FiO2 09/24/19 12:00 99.1 66 24 114/47 (69) 99 09/24/19 12:00 99/46 09/24/19 12:00 63 99/46 09/24/19 12:00 80 09/24/19 12:00 73 09/24/19 11:30 73 21 154/58 (90) 99 09/24/19 11:08 70 24 80 09/24/19 11:00 71 32 156/57 (90) 98 09/24/19 10:30 73 22 158/58 (91) 97 09/24/19 10:15 72 24 157/55 (89) 98 09/24/19 10:00 73 20 157/53 (87) 97 09/24/19 09:40 165/60 09/24/19 09:30 62 24 165/60 (95) 98 09/24/19 09:24 64 26 100 09/24/19 09:00 63 25 165/61 (95) 98 09/24/19 09:00 62 165/60 09/24/19 08:30 65 20 160/71 (100) 98 09/24/19 08:00 63 09/24/19 08:00 99.0 65 24 162/64 (96) 93 09/24/19 08:00 80 09/24/19 07:30 64 24 161/68 (99) 93 09/24/19 07:29 65 24 96 Mechanical Ventilator 100 75 24 09/24/19 07:00 63 24 156/63 (94) 94 09/24/19 07:00 24 156/63 Mechanical Ventilator 80 09/24/19 06:30 63 25 157/65 (95) 89 09/24/19 06:00 26 154/55 Mechanical Ventilator 80 09/24/19 06:00 63 26 154/55 (88) 92 09/24/19 05:06 163/70 09/24/19 05:03 163/70 09/24/19 05:00 24 156/66 Mechanical Ventilator 80 09/24/19 05:00 64 24 156/66 (96) 93 09/24/19 04:41 64 24 100 09/24/19 04:30 64 24 161/69 (99) 95 09/24/19 04:02 26 158/65 Mechanical Ventilator 80 09/24/19 04:00 66 23 163/67 (99) 95 09/24/19 04:00 Mechanical Ventilator 09/24/19 04:00 66 09/24/19 04:00 80 09/24/19 03:30 69 24 169/69 (102) 96 09/24/19 03:00 66 26 174/77 (109) 95 09/24/19 03:00 26 174/77 Mechanical Ventilator 80 09/24/19 02:53 69 24 100 09/24/19 02:30 59 24 148/59 (88) 98 09/24/19 02:00 25 145/58 Mechanical Ventilator 80 09/24/19 02:00 58 24 148/58 (88) 98 09/24/19 01:30 58 23 138/59 (85) 98 09/24/19 01:00 59 25 145/58 (87) 98 09/24/19 01:00 24 124/56 Mechanical Ventilator 80 09/24/19 00:57 88 24 98 Mechanical Ventilator 100 90 24 09/24/19 00:30 59 24 143/63 (89) 91 09/24/19 00:00 59 09/24/19 00:00 26 124/56 Mechanical Ventilator 80 09/24/19 00:00 99.7 59 24 124/56 (78) 60 09/24/19 00:00 Mechanical Ventilator 09/24/19 00:00 80 09/23/19 23:02 154/65 09/23/19 23:01 154/65 09/23/19 23:00 24 160/67 Mechanical Ventilator 80 09/23/19 23:00 65 24 160/67 (98) 96 09/23/19 22:48 64 26 100 09/23/19 22:30 64 24 153/65 (94) 95 09/23/19 22:00 63 25 148/65 (92) 94 09/23/19 22:00 25 148/65 Mechanical Ventilator 80 09/23/19 21:00 64 24 148/66 (93) 94 09/23/19 21:00 24 148/66 Mechanical Ventilator 80 09/23/19 20:36 73 29 100 09/23/19 20:30 74 24 169/66 (100) 94 09/23/19 20:05 182/69 09/23/19 20:00 81 26 182/69 (106) 95 09/23/19 20:00 Mechanical Ventilator 09/23/19 20:00 26 182/69 Mechanical Ventilator 80 09/23/19 20:00 81 09/23/19 20:00 80 09/23/19 19:30 80 27 160/48 (85) 95 09/23/19 19:25 100.0 09/23/19 19:20 72 24 98 Mechanical Ventilator 100 74 24 09/23/19 19:00 24 149/60 Mechanical Ventilator 80 09/23/19 19:00 75 25 149/60 (89) 98 09/23/19 18:30 100.5 72 25 155/57 (89) 96 09/23/19 18:00 24 164/82 Mechanical Ventilator 80 09/23/19 18:00 73 26 176/67 (103) 98 09/23/19 17:58 164/82 09/23/19 17:58 69 164/82 09/23/19 17:30 75 23 180/68 (105) 97 09/23/19 17:00 79 28 179/66 (103) 95 09/23/19 17:00 24 179/66 Mechanical Ventilator 80 09/23/19 16:40 74 29 100 09/23/19 16:30 78 26 188/71 (110) 90 09/23/19 16:00 Mechanical Ventilator 09/23/19 16:00 80 09/23/19 16:00 100.0 76 25 173/58 (96) 91 09/23/19 16:00 76 09/23/19 15:30 78 21 172/77 (108) 93 09/23/19 15:24 70 24 90 09/23/19 15:00 24 147/50 Mechanical Ventilator 80 09/23/19 15:00 67 24 147/50 (82) 98 09/23/19 14:30 73 21 156/64 (94) 100 09/23/19 14:15 74 23 142/71 (94) 98 09/23/19 14:00 24 170/59 Mechanical Ventilator 80 09/23/19 14:00 78 26 154/74 (100) 97 09/23/19 13:30 65 24 146/47 (80) 99 09/23/19 13:00 64 24 141/51 (81) 100 09/23/19 13:00 24 141/51 Mechanical Ventilator 90 I&O Intake and Output 09/23/19 09/24/19 19:00 07:00 Intake Total 1163 ml 834 ml Output Total 390 ml 95 ml Balance 773 ml 739 ml Intake Free Water 30 ml IV Total 223 ml 264 ml Tube Feeding 520 ml 480 ml Other 420 ml 60 ml Output Urine Total 390 ml 95 ml Dressing: saturated Cardiovascular: RSR Respiratory: decreased breath sounds Abdomen: soft, non-tender, present bowel sounds Extremities: no edema, no tenderness, no cyanosis Laboratory Tests Test 09/24/19 02:45 09/24/19 05:43 09/24/19 08:03 White Blood Count 16.2 K/UL (4.8-10.8) H Red Blood Count 2.34 M/UL (4.20-5.40) L Hemoglobin 7.5 G/DL (12.0-16.0) L Hematocrit 24.1 % (37.0-47.0) L Mean Corpuscular Volume 103 FL (80-99) H Mean Corpuscular Hemoglobin 32.1 PG (27.0-31.0) H Mean Corpuscular Hemoglobin Concent 31.2 G/DL (32.0-36.0) L Red Cell Distribution Width 16.7 % (11.6-14.8) H Platelet Count 225 K/UL (150-450) Mean Platelet Volume 5.5 FL (6.5-10.1) L Neutrophils (%) (Auto) % (45.0-75.0) Lymphocytes (%) (Auto) % (20.0-45.0) Monocytes (%) (Auto) % (1.0-10.0) Eosinophils (%) (Auto) % (0.0-3.0) Basophils (%) (Auto) % (0.0-2.0) Differential Total Cells Counted 100 Neutrophils % (Manual) 82 % (45-75) H Lymphocytes % (Manual) 14 % (20-45) L Monocytes % (Manual) 3 % (1-10) Eosinophils % (Manual) 1 % (0-3) Basophils % (Manual) 0 % (0-2) Band Neutrophils 0 % (0-8) Platelet Estimate Adequate Platelet Morphology Normal Hypochromasia 1+ Anisocytosis 1+ Macrocytosis 1+ Prothrombin Time 14.0 SEC (9.30-11.50) H Prothromb Time International Ratio 1.3 (0.9-1.1) H Activated Partial Thromboplast Time 31 SEC (23-33) Sodium Level 146 MMOL/L (136-145) H Potassium Level 4.6 MMOL/L (3.5-5.1) Chloride Level 111 MMOL/L (98-107) H Carbon Dioxide Level 19 MMOL/L (21-32) L Anion Gap 16 mmol/L (5-15) H Blood Urea Nitrogen 153 mg/dL (7-18) H Creatinine 3.2 MG/DL (0.55-1.30) H Estimat Glomerular Filtration Rate 15.5 mL/min (>60) Glucose Level 89 MG/DL (74-106) Uric Acid 9.2 MG/DL (2.6-7.2) H Calcium Level 9.0 MG/DL (8.5-10.1) Phosphorus Level 4.4 MG/DL (2.5-4.9) Magnesium Level 3.4 MG/DL (1.8-2.4) H Total Bilirubin 0.3 MG/DL (0.2-1.0) Aspartate Amino Transf (AST/SGOT) 18 U/L (15-37) Alanine Aminotransferase (ALT/SGPT) 9 U/L (12-78) L Alkaline Phosphatase 158 U/L (46-116) H C-Reactive Protein, Quantitative 11.7 mg/dL (0.00-0.90) H Pro-B-Type Natriuretic Peptide > 22278 pg/mL (0-125) H Total Protein 6.9 G/DL (6.4-8.2) Albumin 2.1 G/DL (3.4-5.0) L Globulin 4.8 g/dL Albumin/Globulin Ratio 0.4 (1.0-2.7) L Random Vancomycin Level 22.1 ug/mL Hepatitis B Surface Antigen Pending Arterial Blood pH 7.191 (7.350-7.450) Arterial Blood Partial Pressure CO2 45.7 mmHg (35.0-45.0) H Arterial Blood Partial Pressure O2 61.8 mmHg (75.0-100.0) L Arterial Blood HCO3 17.1 mmol/L (22.0-26.0) *L Arterial Blood Oxygen Saturation 89.0 % (95-100) *L Arterial Blood Base Excess -10.4 (-2-2) *L Rojas Test Positive Plan Problems: (1) Anemia (2) Proteinuria (3) UTI (urinary tract infection) (4) ARF (acute renal failure) (5) ACS (acute coronary syndrome) (6) Respiratory failure, acute and chronic (7) HCAP (healthcare-associated pneumonia) (8) Abrasion of lip, initial encounter (9) COPD with exacerbation (10) Hypokalemia (11) Sepsis Assessment & Plan: Leukocytosis, anemia, abnormal labs. Renal insufficiency potentially dehydrated Abnormal LFTs alk phos elevated Urine noted significant bacteria likely UTI etiology Wound stable still requiring local care IV antibiotics per infectious disease Discussed with health information systems technician Dr. Berkowitz air mattress turn q2h nutritional tf will follow with recs thank you CT noted pending VQ scan - noted poor study low prob PE work respiratory increasing needs sedation weaning vent settings 80% peep 10 now comfortable Hd line in receiving HD (12) Chronic respiratory failure (13) Ascites (14) Bacteremia (15) Hypernatremia (16) Pleural effusion (17) Pacemaker (18) Aortic dissection, thoracic (19) Tracheostomy in place Assessment & Plan: trach stable no bleeding currently likely tongue etiology of mild oozing currently hemostatic without trauma (20) Feeding by G-tube Assessment & Plan: okay to resume tube feeds via g tube patent and functional dressings okay DAILY ESTIMATED NEEDS: Needs based on Pulmonary, wound 49kg 30-35 kcals/kg 6171-5945 total kcals 1.25-2 g protein/kg 61-98 g total protein Fluid per MD NUTRITION DIAGNOSIS: * Swallowing difficulty R/T dysphagia, respiratory status as evidenced by vent dep via T-collar, GT Dep. (CURRENT TF: Nepro @45ml/hr x 24 hrs) ENTERAL NUTRITION RECOMMENDATIONS: Nepro @ 40ml/hr x 24 hrs to provide 960ml, 1728kcal, 78g prot, 698ml free water * Rec LOWER current rate to 40ml/hr for 24 hrs run. * Water flush of 100ml q 6 hrs per orders * HOB over 30 degrees ADDITIONAL RECOMMENDATIONS: * Per SNF: HT=63", SK=001agm -> rec calibrated bedscale wt * Pt on Nepro CHEF SAUCIER, possible h/o electrolyte imbalance -> monitor lytes closely (K low at this time) * RECORDS AND INFORMATION MANAGER eval for oral grat if appropriate * F/up w/ WC eval-> add FRANKLIN in 4oz H20 BID via GT (21) JAVIER (acute kidney injury) (22) Elevated alkaline phosphatase level Assessment & Plan: noted on labs trend US ordered will follow with recs thank you (23) Acute encephalopathy (24) GT CLOGGED (25) Sacral decubitus ulcer, stage IV Assessment & Plan: Pt presented on admission with Full thickness stage 4 Sacral Pressure injury which extends into R gluteal cheek. Base of wound is granular with bone exposure at base of sacrococcygeal.(L)10.5cm x (W06.5cm x (D) 2.8cm , undermining 11-3 by 3.6cm @12 o'clock. small amt serosanguineous exudate noted . [place] epithelial along edges bordered by darker skin tone without erythema. Resolving Pressure injury L ischium. Base of wound is 95% pink epithelial ,5% noni at center base of wound. No exudate noted. Both heels are boggy with non-Blanching erythema. Tx.plan: Cleanse Sacral wound with Saline. Loosely pack with Hydrogel impregnated Kerlix. Apply Moisture Barrier Periwound. Cover with Optifoam drsg Daily and prn. Apply Moisture Barrier paste to L Ischium. Cover with Optifoam drsg. Changee very 3 days and prn. Apply Cavilon Skin Barrier to both heels. Cover each heel with Optifoam drsgs. Change every 7 days and prn. Reposition at least every 2hours or as tolerated. Off-load heels with pillow. APM/JENNIFER Mattress overlay. Lane Saavedra Sep 24, 2019 12:45
[2019-09-24] MEDS: Ipratropium 0.02% Inh Soln 2.5ml UD HHN PRN (18:44)
[2019-09-24] MEDS: Dyna-Hex 2% Top Sol 2oz TOPIC SCH (21:10)
[2019-09-24] MEDS: Sertraline 100mg tab GT SCH (21:10)
[2019-09-25] VITALS (71 sets, daily range): BP systolic 100–190; BP diastolic 35–128
[2019-09-25] MEDS: HydrALAZINE 50mg tab GT SCH ×2 (00:24→05:41)
[2019-09-25] MEDS: dilTIAZem HCl 60mg tab GT SCH ×2 (00:24→05:41)
[2019-09-25] MEDS: fentaNYL 2500mcg/NS 250ml 250 ML IV SCH ×3 (00:25→20:30)
[2019-09-25] MEDS: Ipratropium 0.02% Inh Soln 2.5ml UD HHN PRN ×2 (00:47→07:18)
[2019-09-25] MEDS: Acetylcysteine 20% Soln 4ml HHN SCH ×4 (00:47→19:40)
[2019-09-25 04:33] LABS: BASOPHILS % (AUTO) 0.4 % (0.0-2.0); EOSINOPHILS % (AUTO) 2.6 % (0.0-3.0); HEMATOCRIT 26.8 % (37.0-47.0); HEMOGLOBIN 8.8 G/DL (12.0-16.0); LYMPHOCYTES % (AUTO) 15.8 % (20.0-45.0); MEAN CORPUSCULAR VOLUME 98 FL (80-99); MONOCYTES % (AUTO) 5.5 % (1.0-10.0); NEUTROPHILS % (AUTO) 75.7 % (45.0-75.0); PLATELET COUNT 324 K/UL (150-450); RED BLOOD COUNT 2.74 M/UL (4.20-5.40); RED CELL DISTRIBUTION WIDTH 16.4 % (11.6-14.8); WHITE BLOOD COUNT 15.3 K/UL (4.8-10.8)
[2019-09-25 05:16] LABS: ALANINE AMINOTRANSFERASE 13 U/L (12-78); ALBUMIN 2.2 G/DL (3.4-5.0); ALBUMIN/GLOBULIN RATIO 0.4 (1.0-2.7); ALKALINE PHOSPHATASE 171 U/L (46-116); ANION GAP 11 mmol/L (5-15); ASPARTATE AMINO TRANSFERASE 21 U/L (15-37); BILIRUBIN,TOTAL 0.4 MG/DL (0.2-1.0); BLOOD UREA NITROGEN 82 mg/dL (7-18); CALCIUM 8.7 MG/DL (8.5-10.1); CARBON DIOXIDE 27 MMOL/L (21-32); CHLORIDE 102 MMOL/L (98-107); CREATININE 2.5 MG/DL (0.55-1.30); POTASSIUM 3.7 MMOL/L (3.5-5.1); SODIUM 140 MMOL/L (136-145)
--- NOTE | 2019-09-25 07:52 | Infectious Diseases Prog Note ---
Assessment/Plan 49yo F with: Acute hypoxic resp failure: Now on vent Pneumonia, COVID19 neg x3 09/22 Resp cx + GNRs 09/22 BCx NTD 09/22 CXR: worsening BL pna 09/22 UA w/ persistent pyuria, now on HD, UCx NTD 09/19 V/Q scan, low probability of PE 09/18 Rapid COVID PCR neg 09/18 CT chest: Markedly suboptimal examination due to lack of IV contrast material. Bilateral pleural effusions, right greater than left, with bilateral lower lobe consolidation or volume loss. Ground glass densities in the upper lobes bilaterally. This is not specific. Tracheostomy. Increased superior mediastinal density. Stability of adenopathy cannot be excluded. Atherosclerotic change. Gastrostomy. Ascites. Left renal stent with left hydronephrosis and renal atrophy. 09/17 Chest US: Trace right and small left pleural effusions. No safe window identified for bedside thoracentesis. Note that the majority of the left pleural effusion is subpulmonic. 09/16 CXR: Worsening of right lung infiltrates and right effusion. V. duplex: NO DVT D-dimer elevated 09/15 Rapid COVID PCR neg 09/15 Sp cx ESBL P. mirablis 09/14 CXR: Bilateral airspace opacities, preferentially involving the right lung, consistent with multifocal infiltrate. Trace bilateral pleural effusions. No pneumothorax. Rapid COVID PCR neg GPC bacteremia, real vs contaminant; does have hx of infected PPM- could be a possibility- ro endocarditis 09/14 Bcx 03/19 S. epidermis; 09/15 Bcx NTD 2d echo: no vegetations seen UTI 09/14 u/a wbc tnct, nit neg, leuk +3; ucx >100k MDR P. stuarti (S Ceftriaxone, Meropenem) 09/22 UA w/ ongoing pyuria, unchanged Unstageable sacral ulceration Afebrile Leukocytosis, mild; fluctuates bt 12-13 JAVIER on CKD --> now on HD Renal US: Limited exam due to abdominal ascites and shadowing from bowel gas. CT recommended for more sensitive evaluation. Moderate right hydronephrosis. Increased renal parenchymal echogenicity suggesting intrinsic/ medical renal disease. Question indwelling left ureteral stent versus artifact. Bladder not visualized. 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 epi-11/2018, sp > 6weeks IV vancomycin 11/27 SP ABBIE: no evidence for vegetation on any of the valves 11/26/18 SP PPM removal: OR findings:The fibrous capsule enclosing the generator was then opened and there was a [id number] amount of yellowish fluid drainage. The generator was then removed.Atrial and ventricular leads were detached. The necrotic tissue of the pocket was then removed and the pocket was flushed with an antibiotic solution. Capsule, wound tissue and lead tip cx: Neg 2d echo: no vegetation seen US chest: 4.6 x 3.4 x 0.9 cm hypoechoic/anechoic area overlying left chest pacemaker power pack. This could represent either a discrete fluid collection or a focal area of very edematous tissue. Infected fluid pocket also possible. 11/18 Bcx 3/4 S. epi; 11/20 Bcx neg; 11/24 Bcx Neg; 11/27 Bcx Neg Hx of PNA 11/2019? sp cx PsA (arnett S), ABC (I Ceftriaxone; otherwise negative) Sp cx MRSA, ABC (I Ceftriaxone; otherwise S) PMH: Afib HTN Dysphagia sp GT Aortic dissection s/p repair 2017, S/p PPM Parkinson's Disease Schizophrenia Anxiety COPD Chronic resp failure s/p trach Hx of tracheal bleeding [place] resident ([facility]) Plan: Continue Meropenem #9 Continue vancomycin #10/14 given prior Staph epi in BCx, though possible contaminant also F/u resp cx 09/22 +GNRs Aggressive volume removal as tolerated by HD, BNP >35,000 09/22/19 SP / SP Cefepime #3, Levaquin #3 -Monitor CBC/CMP, temperatures -ICU/ trach/ peg care -Aspiration precautions D/w RN Thank you for this consultation. Will continue to follow along with you. Subjective Allergies: Coded Allergies: No Known Allergies (Unverified , 10/10/17) AF x24hrs Sedated on vent, FiO2 40% satting 99% WBC 15, improving HD tomorrow Objective Last 24 Hour Vital Signs Date Time Temp Pulse Resp B/P (MAP) Pulse Ox O2 Delivery O2 Flow Rate FiO2 09/25/19 07:12 63 24 98 Mechanical Ventilator 80 63 24 09/25/19 07:00 24 117/54 Mechanical Ventilator 80 09/25/19 07:00 63 24 117/54 (75) 99 09/25/19 06:45 65 21 123/95 (104) 100 09/25/19 06:30 64 24 123/61 (81) 99 09/25/19 06:15 69 24 142/101 (115) 99 09/25/19 06:00 24 158/62 Mechanical Ventilator 80 09/25/19 06:00 74 25 156/62 (93) 100 09/25/19 05:45 73 22 142/90 (107) 100 09/25/19 05:41 126/54 09/25/19 05:41 62 126/54 09/25/19 05:30 62 24 126/54 (78) 98 09/25/19 05:15 63 24 128/57 (80) 99 09/25/19 05:02 64 24 80 09/25/19 05:00 64 24 131/55 (80) 99 09/25/19 05:00 24 131/55 Mechanical Ventilator 80 09/25/19 04:45 68 25 132/53 (79) 99 09/25/19 04:30 73 27 137/59 (85) 99 09/25/19 04:15 80 23 161/63 (95) 99 09/25/19 04:00 98.9 83 24 164/66 (98) 99 09/25/19 04:00 24 164/66 Mechanical Ventilator 80 09/25/19 04:00 80 09/25/19 04:00 Mechanical Ventilator Mechanical Ventilator 09/25/19 03:45 84 16 167/115 (132) 99 09/25/19 03:30 84 25 174/78 (110) 98 09/25/19 03:15 83 23 169/68 (101) 98 09/25/19 03:12 74 28 80 09/25/19 03:02 80 09/25/19 03:00 75 23 154/66 (95) 99 09/25/19 03:00 24 154/66 Mechanical Ventilator 80 09/25/19 02:45 62 24 126/35 (65) 96 09/25/19 02:30 64 24 109/47 (67) 96 09/25/19 02:15 63 24 111/43 (65) 96 09/25/19 02:00 24 123/48 Mechanical Ventilator 80 09/25/19 02:00 67 24 123/48 (73) 96 09/25/19 01:45 64 24 111/51 (71) 95 09/25/19 01:30 71 24 133/52 (79) 98 09/25/19 01:15 68 23 137/55 (82) 98 09/25/19 01:00 71 24 145/57 (86) 98 09/25/19 01:00 24 145/57 Mechanical Ventilator 80 09/25/19 00:52 70 24 100 Mechanical Ventilator 80 72 24 09/25/19 00:45 71 25 135/56 (82) 99 09/25/19 00:30 71 25 152/60 (90) 100 09/25/19 00:25 24 125/62 Mechanical Ventilator 80 09/25/19 00:24 125/52 09/25/19 00:24 62 125/62 09/25/19 00:15 67 24 125/52 (76) 98 09/25/19 00:00 98.1 70 23 147/54 (85) 100 09/25/19 00:00 24 120/45 Mechanical Ventilator 80 09/25/19 00:00 Mechanical Ventilator Mechanical Ventilator 09/24/19 23:45 61 24 104/44 (64) 95 09/24/19 23:30 62 24 113/46 (68) 97 09/24/19 23:15 62 24 108/47 (67) 98 09/24/19 23:02 64 09/24/19 23:00 24 108/47 Mechanical Ventilator 80 09/24/19 23:00 65 24 120/45 (70) 98 09/24/19 22:53 61 24 80 09/24/19 22:45 67 24 140/56 (84) 98 09/24/19 22:30 62 24 102/47 (65) 98 09/24/19 22:15 64 24 110/47 (68) 98 09/24/19 22:00 24 107/44 Mechanical Ventilator 80 09/24/19 22:00 64 24 107/44 (65) 98 09/24/19 21:45 68 24 119/55 (76) 98 09/24/19 21:30 75 24 151/55 (87) 99 09/24/19 21:15 66 24 130/55 (80) 98 09/24/19 21:10 66 128/47 09/24/19 21:00 65 23 128/47 (74) 99 09/24/19 21:00 24 128/47 Mechanical Ventilator 80 09/24/19 20:45 65 24 115/46 (69) 99 09/24/19 20:39 69 24 80 09/24/19 20:30 70 25 143/49 (80) 98 09/24/19 20:15 63 24 114/50 (71) 97 09/24/19 20:00 Mechanical Ventilator Mechanical Ventilator 09/24/19 20:00 98.0 63 25 122/52 (75) 98 09/24/19 20:00 24 122/52 Mechanical Ventilator 80 09/24/19 20:00 80 09/24/19 19:45 69 25 150/53 (85) 99 09/24/19 19:30 63 24 115/48 (70) 96 09/24/19 19:27 63 09/24/19 19:00 24 150/52 Mechanical Ventilator 80 09/24/19 19:00 64 24 150/52 (84) 100 09/24/19 18:53 61 24 96 Mechanical Ventilator 80 65 24 09/24/19 18:30 62 24 125/51 (75) 98 09/24/19 18:04 120/49 09/24/19 18:04 65 120/49 09/24/19 18:00 24 120/49 Mechanical Ventilator 80 09/24/19 18:00 65 24 120/49 (72) 96 09/24/19 17:30 67 24 170/71 (104) 89 09/24/19 17:27 69 24 80 09/24/19 17:00 76 25 178/74 (108) 90 09/24/19 17:00 24 178/74 Mechanical Ventilator 80 09/24/19 17:00 72 25 175/63 (100) 88 09/24/19 16:30 78 28 179/71 (107) 91 09/24/19 16:00 98.9 73 33 176/75 (108) 90 09/24/19 16:00 80 09/24/19 16:00 70 09/24/19 16:00 28 176/75 Mechanical Ventilator 80 09/24/19 16:00 Mechanical Ventilator Mechanical Ventilator 09/24/19 15:55 184/66 09/24/19 15:30 73 28 179/68 (105) 89 09/24/19 15:04 86 32 80 09/24/19 15:00 68 30 143/54 (83) 95 09/24/19 15:00 29 143/54 Mechanical Ventilator 80 09/24/19 14:43 24 175/58 Mechanical Ventilator 80 09/24/19 14:30 71 33 155/57 (89) 97 09/24/19 14:00 67 21 156/58 (90) 99 09/24/19 14:00 29 142/58 Mechanical Ventilator 80 09/24/19 13:30 68 24 137/60 (85) 100 09/24/19 13:21 68 24 80 09/24/19 13:00 68 21 142/58 (86) 99 09/24/19 13:00 24 118/52 Mechanical Ventilator 80 09/24/19 12:30 63 24 107/48 (67) 100 09/24/19 12:00 Mechanical Ventilator Mechanical Ventilator 09/24/19 12:00 99.1 66 24 114/47 (69) 99 09/24/19 12:00 24 114/47 Mechanical Ventilator 80 09/24/19 12:00 99/46 09/24/19 12:00 63 99/46 09/24/19 12:00 80 09/24/19 12:00 73 09/24/19 11:30 73 21 154/58 (90) 99 09/24/19 11:08 70 24 80 09/24/19 11:00 71 32 156/57 (90) 98 09/24/19 11:00 24 156/57 Mechanical Ventilator 80 09/24/19 10:30 73 22 158/58 (91) 97 09/24/19 10:15 72 24 157/55 (89) 98 09/24/19 10:00 24 169/72 Mechanical Ventilator 80 09/24/19 10:00 73 20 157/53 (87) 97 09/24/19 09:40 165/60 09/24/19 09:30 62 24 165/60 (95) 98 09/24/19 09:24 64 26 100 09/24/19 09:00 63 25 165/61 (95) 98 09/24/19 09:00 24 165/61 Mechanical Ventilator 80 09/24/19 09:00 62 165/60 09/24/19 08:30 65 20 160/71 (100) 98 09/24/19 08:00 63 09/24/19 08:00 24 162/64 Mechanical Ventilator 80 09/24/19 08:00 99.0 65 24 162/64 (96) 93 09/24/19 08:00 80 09/24/19 08:00 Mechanical Ventilator Mechanical Ventilator Height (Feet): 5 Height (Inches): 5.00 Weight (Pounds): 133 Gen: Older woman, sedated on vent Pulm: BL chest rise on vent Abd: Soft, non-distended Ext: No c/c Neuro: Sedated Microbiology Date/Time Source Procedure Growth Status 09/23/19 09:45 Blood Blood Culture - Preliminary NO GROWTH AFTER 24 HOURS Resulted 09/23/19 09:30 Blood Blood Culture - Preliminary NO GROWTH AFTER 24 HOURS Resulted 09/23/19 08:38 Sputum Gram Stain - Final Resulted 09/23/19 08:38 Sputum Culture - Preliminary Gram Negative Bacillus 1 Resulted 09/23/19 08:38 Straight Cath Urine Culture - Preliminary Resulted Laboratory Tests Test 09/24/19 08:03 09/25/19 03:00 09/25/19 07:14 Arterial Blood pH 7.191 (7.350-7.450) 7.496 (7.350-7.450) Arterial Blood Partial Pressure CO2 45.7 mmHg (35.0-45.0) H 32.4 mmHg (35.0-45.0) L Arterial Blood Partial Pressure O2 61.8 mmHg (75.0-100.0) L 77.5 mmHg (75.0-100.0) Arterial Blood HCO3 17.1 mmol/L (22.0-26.0) *L 24.5 mmol/L (22.0-26.0) Arterial Blood Oxygen Saturation 89.0 % (95-100) *L 95.3 % (95-100) Arterial Blood Base Excess -10.4 (-2-2) *L 1.3 (-2-2) Rojas Test Positive Positive White Blood Count 15.3 K/UL (4.8-10.8) H Red Blood Count 2.74 M/UL (4.20-5.40) L Hemoglobin 8.8 G/DL (12.0-16.0) L Hematocrit 26.8 % (37.0-47.0) L Mean Corpuscular Volume 98 FL (80-99) Mean Corpuscular Hemoglobin 32.2 PG (27.0-31.0) H Mean Corpuscular Hemoglobin Concent 32.9 G/DL (32.0-36.0) Red Cell Distribution Width 16.4 % (11.6-14.8) H Platelet Count 324 K/UL (150-450) Mean Platelet Volume 6.0 FL (6.5-10.1) L Neutrophils (%) (Auto) 75.7 % (45.0-75.0) H Lymphocytes (%) (Auto) 15.8 % (20.0-45.0) L Monocytes (%) (Auto) 5.5 % (1.0-10.0) Eosinophils (%) (Auto) 2.6 % (0.0-3.0) Basophils (%) (Auto) 0.4 % (0.0-2.0) Sodium Level 140 MMOL/L (136-145) Potassium Level 3.7 MMOL/L (3.5-5.1) Chloride Level 102 MMOL/L (98-107) Carbon Dioxide Level 27 MMOL/L (21-32) Anion Gap 11 mmol/L (5-15) Blood Urea Nitrogen 82 mg/dL (7-18) H Creatinine 2.5 MG/DL (0.55-1.30) H Estimat Glomerular Filtration Rate 20.6 mL/min (>60) Glucose Level 114 MG/DL (74-106) H Calcium Level 8.7 MG/DL (8.5-10.1) Phosphorus Level 3.0 MG/DL (2.5-4.9) Magnesium Level 2.7 MG/DL (1.8-2.4) H Total Bilirubin 0.4 MG/DL (0.2-1.0) Aspartate Amino Transf (AST/SGOT) 21 U/L (15-37) Alanine Aminotransferase (ALT/SGPT) 13 U/L (12-78) Alkaline Phosphatase 171 U/L (46-116) H C-Reactive Protein, Quantitative 11.0 mg/dL (0.00-0.90) H Pro-B-Type Natriuretic Peptide > 28320 pg/mL (0-125) H Total Protein 7.9 G/DL (6.4-8.2) Albumin 2.2 G/DL (3.4-5.0) L Globulin 5.7 g/dL Albumin/Globulin Ratio 0.4 (1.0-2.7) L Random Vancomycin Level 16.5 ug/mL Current Medications Medications (Trade) Dose Ordered Sig/Penny Route PRN Reason Start Time Stop Time Status Last Admin Dose Admin Acetaminophen (Tylenol) 325 mg Q6H PRN GT Temp >100.5 09/23/19 10:45 10/23/19 10:44 09/23/19 18:55 Acetaminophen/ Hydrocodone Bitart ([place] 10/325) 1 tab Q6H PRN GT For Pain 09/21/19 13:30 09/26/19 13:29 09/23/19 03:29 Acetylcysteine (Mucomyst) 200 mg Q6HRT HHN 09/18/19 19:00 12/17/19 18:59 09/25/19 07:18 Chlorhexidine Gluconate (Ling-Hex 2%) 1 applic DAILY@1999 TOPIC 09/23/19 20:00 12/22/19 19:59 09/24/19 21:10 Clonazepam (KlonoPIN) 0.5 mg Q12HR GT 09/21/19 21:00 09/26/19 08:59 09/24/19 21:10 Diltiazem HCl (Cardizem Tab) 60 mg EVERY 6 HOURS GT 09/17/19 12:00 10/15/19 11:59 09/25/19 05:41 Docusate Sodium (Colace) 100 mg TID GT 09/17/19 13:00 10/15/19 08:59 09/24/19 18:03 Epoetin Gelacio (Epoetin Gelacio-EPBX(NON ESRD)) 10,000 unit MON-MON-MON SUBQ 09/18/19 21:00 12/15/19 20:59 09/23/19 20:05 Fentanyl Citrate 250 ml @ 0 mls/hr Q24H IV 09/21/19 09:30 12/20/19 09:29 09/25/19 00:25 Heparin Sodium (Porcine) (Heparin 5000 units/ml) 5,000 units EVERY 12 HOURS SUBQ 09/17/19 21:00 10/30/19 08:59 09/24/19 21:12 Hydralazine HCl (Apresoline) 10 mg Q4H PRN IV BP over 160 systolic 09/17/19 11:15 12/14/19 11:14 09/24/19 15:55 Hydralazine HCl (Apresoline) 50 mg Q6HR GT 09/17/19 12:00 12/15/19 17:59 09/25/19 05:41 Ipratropium Te[place]y (Atrovent) 500 mcg Q4H PRN HHN Shortness of Breath 09/21/19 13:30 09/26/19 13:29 09/25/19 07:18 Meropenem 500 mg/ Sodium Chloride 55 ml @ 110 mls/hr EVERY 12 HOURS IVPB 09/24/19 10:00 09/29/19 09:59 09/24/19 21:10 Metoprolol Tartrate (Lopressor) 50 mg EVERY 12 HOURS GT 09/17/19 21:00 12/14/19 08:59 09/24/19 21:10 Midazolam HCl (Versed 2mg/2ml vial) 1 mg Q4H PRN IVP For Anxiety 09/21/19 09:30 12/20/19 09:29 09/23/19 15:45 Olanzapine (ZyPREXA) 2.5 mg DAILY GT 09/18/19 09:00 10/30/19 08:59 09/24/19 09:34 Pantoprazole (Protonix) 40 mg EVERY 12 HOURS IVP 09/21/19 21:00 10/21/19 20:59 09/24/19 21:10 Sertraline HCl (Zoloft) 100 mg BEDTIME GT 09/17/19 21:00 10/15/19 20:59 09/24/19 21:10 Vancomycin HCl (Vanco pharmacy to dose) 1 ea DAILY PRN MISC Per rx protocol 09/18/19 09:00 10/16/19 13:44 Vancomycin HCl 500 mg/Dextrose 110 ml @ 110 mls/hr ONCE ONCE IVPB 09/25/19 08:00 09/25/19 08:59 Ro Pack M.D. Sep 25, 2019 07:52
[2019-09-25] MEDS ORDERED: Vancomycin 500mg/D5W 110ml IVPB ONE ×2 (08:00)
[2019-09-25] MEDS: Docusate 100mg/10ml Liq GT SCH ×3 (08:06→18:12)
[2019-09-25] MEDS: Pantoprazole Inj IVP SCH ×2 (08:07→21:23)
[2019-09-25] MEDS: Metoprolol Tartrate 50mg tab GT SCH (08:07)
[2019-09-25] MEDS: OLANZapine 2.5mg tab GT SCH (08:07)
[2019-09-25] MEDS: clonazePAM 0.5mg tab GT SCH ×2 (08:07→21:23)
[2019-09-25] MEDS: Heparin 5000 units/ml inj SUBQ SCH ×2 (08:08→21:24)
--- NOTE | 2019-09-25 09:00 | Nephrology Progress Note ---
Assessment/Plan Problem List: (1) JAVIER (acute kidney injury) (2) Renal failure (ARF), acute on chronic (3) Dehydration (4) Electrolyte imbalance (5) Anemia (6) Respiratory failure, acute and chronic (7) COPD with exacerbation Assessment Patient is presented with sepsis and pneumonia and UTI Patient has acute renal failure, possible underlying chronic kidney failure Severe anemia Electrolyte imbalances: Hyponatremia, hypo-kalemia Chronic respiratory failure, COPD exacerbation Plan September 24: Lab reviewed. ABG reviewed. Both lab and ABG much improved. Patient was dialyzed yesterday. We will attempt dialysis tomorrow again. Will adjust that blood pressure medication dosages. September 23: Lab reviewed. ABG reviewed. Patient acidotic. IV bicarb 1 dose is given. Patient has dialysis catheter. Will order dialysis for ultrafiltration and correction of acid-base. Discussed with ERASMO Mohr. September 22: Labs reviewed. Potassium high. Kayexalate and Reglan given. Will discuss with the consultants regarding initiation of dialysis. September 21: Patient is being sedated. Labs reviewed. Potassium supplement discontinued. GFR 20. Continue per current treatment plan. Dialysis and ultrafiltration is a consideration. September 20: Patient periodically agitated. Labs reviewed. Creatinine 2.4. Medication reviewed. Continue per consultants. Calculated creatinine clearance 21. May need isolated ultrafiltration on dialysis. Will discuss with PMD. Meanwhile hemoglobin is lower, defer transfusion to PMD. September 19: DC IV fluid. Zaroxolyn via GT tube. Potassium supplement. Attempt to diurese. Chest CT as bilateral pleural effusion. If diuresis unsuccessful, will consider dialysis and ultrafiltration. September 18: Potassium supplement IV given. Hemoglobin stable. Patient remains full code. Continue per consultants. Previously: Potassium supplement IV Slow IV hydration Epogen subcu Adjust blood pressure medication IV fluid, rate adjusted Norman catheter, intake and output Monitor renal parameters Avoid nephrotoxic's Antibiotics Per orders 2D echocardiogram Kidney ultrasound Subjective ROS Limited/Unobtainable: Yes Objective Objective Last 24 Hour Vital Signs Date Time Temp Pulse Resp B/P (MAP) Pulse Ox O2 Delivery O2 Flow Rate FiO2 09/25/19 08:48 61 24 60 09/25/19 08:07 75 94/46 09/25/19 08:00 24 131/53 Endotracheal Tube 70 09/25/19 08:00 98.7 63 24 131/53 (79) 95 09/25/19 08:00 Mechanical Ventilator Mechanical Ventilator 09/25/19 08:00 70 09/25/19 07:16 65 09/25/19 07:12 63 24 98 Mechanical Ventilator 80 63 24 09/25/19 07:00 24 117/54 Mechanical Ventilator 80 09/25/19 07:00 63 24 117/54 (75) 99 09/25/19 06:45 65 21 123/95 (104) 100 09/25/19 06:30 64 24 123/61 (81) 99 09/25/19 06:15 69 24 142/101 (115) 99 09/25/19 06:00 24 158/62 Mechanical Ventilator 80 09/25/19 06:00 74 25 156/62 (93) 100 09/25/19 05:45 73 22 142/90 (107) 100 09/25/19 05:41 126/54 09/25/19 05:41 62 126/54 09/25/19 05:30 62 24 126/54 (78) 98 09/25/19 05:15 63 24 128/57 (80) 99 09/25/19 05:02 64 24 80 09/25/19 05:00 64 24 131/55 (80) 99 09/25/19 05:00 24 131/55 Mechanical Ventilator 80 09/25/19 04:45 68 25 132/53 (79) 99 09/25/19 04:30 73 27 137/59 (85) 99 09/25/19 04:15 80 23 161/63 (95) 99 09/25/19 04:00 98.9 83 24 164/66 (98) 99 09/25/19 04:00 24 164/66 Mechanical Ventilator 80 09/25/19 04:00 80 09/25/19 04:00 Mechanical Ventilator Mechanical Ventilator 09/25/19 03:45 84 16 167/115 (132) 99 09/25/19 03:30 84 25 174/78 (110) 98 09/25/19 03:15 83 23 169/68 (101) 98 09/25/19 03:12 74 28 80 09/25/19 03:02 80 09/25/19 03:00 75 23 154/66 (95) 99 09/25/19 03:00 24 154/66 Mechanical Ventilator 80 09/25/19 02:45 62 24 126/35 (65) 96 09/25/19 02:30 64 24 109/47 (67) 96 09/25/19 02:15 63 24 111/43 (65) 96 09/25/19 02:00 24 123/48 Mechanical Ventilator 80 09/25/19 02:00 67 24 123/48 (73) 96 09/25/19 01:45 64 24 111/51 (71) 95 09/25/19 01:30 71 24 133/52 (79) 98 09/25/19 01:15 68 23 137/55 (82) 98 09/25/19 01:00 71 24 145/57 (86) 98 09/25/19 01:00 24 145/57 Mechanical Ventilator 80 09/25/19 00:52 70 24 100 Mechanical Ventilator 80 72 24 09/25/19 00:45 71 25 135/56 (82) 99 09/25/19 00:30 71 25 152/60 (90) 100 09/25/19 00:25 24 125/62 Mechanical Ventilator 80 09/25/19 00:24 125/52 09/25/19 00:24 62 125/62 09/25/19 00:15 67 24 125/52 (76) 98 09/25/19 00:00 98.1 70 23 147/54 (85) 100 09/25/19 00:00 24 120/45 Mechanical Ventilator 80 09/25/19 00:00 Mechanical Ventilator Mechanical Ventilator 09/24/19 23:45 61 24 104/44 (64) 95 09/24/19 23:30 62 24 113/46 (68) 97 09/24/19 23:15 62 24 108/47 (67) 98 09/24/19 23:02 64 09/24/19 23:00 24 108/47 Mechanical Ventilator 80 09/24/19 23:00 65 24 120/45 (70) 98 09/24/19 22:53 61 24 80 09/24/19 22:45 67 24 140/56 (84) 98 09/24/19 22:30 62 24 102/47 (65) 98 09/24/19 22:15 64 24 110/47 (68) 98 09/24/19 22:00 24 107/44 Mechanical Ventilator 80 09/24/19 22:00 64 24 107/44 (65) 98 09/24/19 21:45 68 24 119/55 (76) 98 09/24/19 21:30 75 24 151/55 (87) 99 09/24/19 21:15 66 24 130/55 (80) 98 09/24/19 21:10 66 128/47 09/24/19 21:00 65 23 128/47 (74) 99 09/24/19 21:00 24 128/47 Mechanical Ventilator 80 09/24/19 20:45 65 24 115/46 (69) 99 09/24/19 20:39 69 24 80 09/24/19 20:30 70 25 143/49 (80) 98 09/24/19 20:15 63 24 114/50 (71) 97 09/24/19 20:00 Mechanical Ventilator Mechanical Ventilator 09/24/19 20:00 98.0 63 25 122/52 (75) 98 09/24/19 20:00 24 122/52 Mechanical Ventilator 80 09/24/19 20:00 80 09/24/19 19:45 69 25 150/53 (85) 99 09/24/19 19:30 63 24 115/48 (70) 96 09/24/19 19:27 63 09/24/19 19:00 24 150/52 Mechanical Ventilator 80 09/24/19 19:00 64 24 150/52 (84) 100 09/24/19 18:53 61 24 96 Mechanical Ventilator 80 65 24 09/24/19 18:30 62 24 125/51 (75) 98 09/24/19 18:04 120/49 09/24/19 18:04 65 120/49 09/24/19 18:00 24 120/49 Mechanical Ventilator 80 09/24/19 18:00 65 24 120/49 (72) 96 09/24/19 17:30 67 24 170/71 (104) 89 09/24/19 17:27 69 24 80 09/24/19 17:00 76 25 178/74 (108) 90 09/24/19 17:00 24 178/74 Mechanical Ventilator 80 09/24/19 17:00 72 25 175/63 (100) 88 09/24/19 16:30 78 28 179/71 (107) 91 09/24/19 16:00 98.9 73 33 176/75 (108) 90 09/24/19 16:00 80 09/24/19 16:00 70 09/24/19 16:00 28 176/75 Mechanical Ventilator 80 09/24/19 16:00 Mechanical Ventilator Mechanical Ventilator 09/24/19 15:55 184/66 09/24/19 15:30 73 28 179/68 (105) 89 09/24/19 15:04 86 32 80 09/24/19 15:00 68 30 143/54 (83) 95 09/24/19 15:00 29 143/54 Mechanical Ventilator 80 09/24/19 14:43 24 175/58 Mechanical Ventilator 80 09/24/19 14:30 71 33 155/57 (89) 97 09/24/19 14:00 67 21 156/58 (90) 99 09/24/19 14:00 29 142/58 Mechanical Ventilator 80 09/24/19 13:30 68 24 137/60 (85) 100 09/24/19 13:21 68 24 80 09/24/19 13:00 68 21 142/58 (86) 99 09/24/19 13:00 24 118/52 Mechanical Ventilator 80 09/24/19 12:30 63 24 107/48 (67) 100 09/24/19 12:00 Mechanical Ventilator Mechanical Ventilator 09/24/19 12:00 99.1 66 24 114/47 (69) 99 09/24/19 12:00 24 114/47 Mechanical Ventilator 80 09/24/19 12:00 99/46 09/24/19 12:00 63 99/46 09/24/19 12:00 80 09/24/19 12:00 73 09/24/19 11:30 73 21 154/58 (90) 99 09/24/19 11:08 70 24 80 09/24/19 11:00 71 32 156/57 (90) 98 09/24/19 11:00 24 156/57 Mechanical Ventilator 80 09/24/19 10:30 73 22 158/58 (91) 97 09/24/19 10:15 72 24 157/55 (89) 98 09/24/19 10:00 24 169/72 Mechanical Ventilator 80 09/24/19 10:00 73 20 157/53 (87) 97 09/24/19 09:40 165/60 09/24/19 09:30 62 24 165/60 (95) 98 09/24/19 09:24 64 26 100 09/24/19 09:00 63 25 165/61 (95) 98 09/24/19 09:00 24 165/61 Mechanical Ventilator 80 09/24/19 09:00 62 165/60 Intake and Output 09/24/19 09/25/19 19:00 07:00 Intake Total 870.35000 ml 939.67961 ml Output Total 2030 ml 62 ml Balance -1159.25005 ml 877.54520 ml Intake Free Water 25 ml IV Total 365.50454 ml 419.26276 ml Tube Feeding 480 ml 480 ml Other 40 ml Output Urine Total 30 ml 62 ml Hemodialysis UF 2000 ml Laboratory Tests 09/25/19 03:00: White Blood Count 15.3H, Red Blood Count 2.74L, Hemoglobin 8.8L, Hematocrit 26.8L, Mean Corpuscular Volume 98, Mean Corpuscular Hemoglobin 32.2H, Mean Corpuscular Hemoglobin Concent 32.9, Red Cell Distribution Width 16.4H, Platelet Count 324, Mean Platelet Volume 6.0L, Neutrophils (%) (Auto) 75.7H, Lymphocytes (%) (Auto) 15.8L, Monocytes (%) (Auto) 5.5, Eosinophils (%) (Auto) 2.6, Basophils (%) (Auto) 0.4, Sodium Level 140, Potassium Level 3.7, Chloride Level 102, Carbon Dioxide Level 27, Anion Gap 11, Blood Urea Nitrogen 82H, Creatinine 2.5H, Estimat Glomerular Filtration Rate 20.6, Glucose Level 114H, Calcium Level 8.7, Phosphorus Level 3.0, Magnesium Level 2.7H, Total Bilirubin 0.4, Aspartate Amino Transf (AST/SGOT) 21, Alanine Aminotransferase (ALT/SGPT) 13, Alkaline Phosphatase 171H, C-Reactive Protein, Quantitative 11.0H, Pro-B- Type Natriuretic Peptide > 85173S, Total Protein 7.9, Albumin 2.2L, Globulin 5.7 , Albumin/Globulin Ratio 0.4L, Random Vancomycin Level 16.5 09/25/19 07:14: Arterial Blood pH 7.496H, Arterial Blood Partial Pressure CO2 32.4L, Arterial Blood Partial Pressure O2 77.5, Arterial Blood HCO3 24.5, Arterial Blood Oxygen Saturation 95.3, Arterial Blood Base Excess 1.3, Rojas Test Positive Height (Feet): 5 Height (Inches): 5.00 Weight (Pounds): 133 General Appearance: no apparent distress EENT: other - On mechanical ventilation Cardiovascular: normal rate Respiratory/Chest: decreased breath sounds Abdomen: soft Objective No change Johnny Houston MD Sep 25, 2019 09:00
--- NOTE | 2019-09-25 09:20 | Pulmonolgy Critical Care Note ---
[facility]ro [facility] CONTACT PERSON 09/25/19 0920: Critical Care - Asmt/Plan Assessment/Plan: ASSESSMENT Acute on chronic hypoxemic respiratory failure ( trach dependent), now on vent Tracheostomy status, s/p change to cuffed trach Sepsis Pulmonary edema pleural effusion worsening Pneumonia UTI CHF ? cardiorenal COPD Acute kidney injury and chronic kidney disease-requiring start of HD Hypertension Atrial fibrillation Moderate pulm HTN Moderate AR Dysphagia , feeding by G-tube Electrolyte abnormalities Anemia Toxic metabolic encephalopathy likely due to sepsis and ARF HTN PAF PLAN OF CARE ICU on vent AC trach changed 8/4 pm from uncuffed to cuffed Shiley#7 XLT repeat rapid COVID 19 09/18 -> NGT CT chest w/out contrast: - Bilateral pleural effusions, right greater than left, with bilateral lower lobe consolidation or volume loss. -Ground-glass densities in the upper lobes bilaterally. This is not specific. -Tracheostomy. -Increased superior mediastinal density. Stability of adenopathy cannot be excluded. -Atherosclerotic change. -Gastrostomy. -Ascites. -Left renal stent with left hydronephrosis and renal atrophy. VQ scan -> low probability for PE CXR 09/19 no change ABG 09/19 with acidosis and hypoxia, PEEP increased to 12 CXR 09/[address] worse with worsening R pl effusion, ABG 09/21 met acidosis, no hypoxia, settings changed to [id number] and taper O2 needs as tolerated ABG this am 09/23 noted, now on FiO2 80% CXR 09/21 ->Slight interval improvement in aeration of the lungs. CXR 09/22->, slight worsening of bilateral infiltrates, likely pneumonia trach care ,pulmonary toilet total rapid COVID 19 NGT x3 sedation with fentanyl gtt and Versed prn need diuresis or HD s/p placement of temp HD catheter had bicarb per nephro -> HD plan for 09/23 s/p HD 09/23 ABG improved, acidosis resolved will titrate AC paty 70 20 and PEEP to 6, ABG and CXR in am abx as per ID-Meropenem, Vanco SCX 8/3 + Proteus, SCX 09/22 GNB UCX 8/2 + Providencia , UCX 8 Strep 10-20 K only BCX 8/2 Staph epidermidis, BCX 8/ NGT , BCX 8/- NGTD repeated UCX 09/22 pending aspiration precautions venous Duplex BLE -> NGT DVT prophylaxis pulm toilet, continue Mucomyst to help in loosening secretions monitor volumes was on gentle IVF-> dc monitor renal parameters, lytes, correct lytes as needed , avoid nephrotoxics hypo Na resolved - per nephro management K replaced this am as per nephro s/ p Zaroxyline 09/19 s/p prior diuretic-Lasix ECHO with pEF , moderate pulm HTN and moderate AR BP management with current regimen of BB, Cardizem and Hydralazine, remains in SR monitor HH with goal to keep Hgb >7, heme on board on EPO supportive care pain management wound care bowel regimen thank you for a consult Critical Care - Objective Last 24 Hour Vital Signs Date Time Temp Pulse Resp B/P (MAP) Pulse Ox O2 Delivery O2 Flow Rate FiO2 09/25/19 08:48 61 24 60 09/25/19 08:07 75 94/46 09/25/19 08:00 24 131/53 Endotracheal Tube 70 09/25/19 08:00 98.7 63 24 131/53 (79) 95 09/25/19 08:00 Mechanical Ventilator Mechanical Ventilator 09/25/19 08:00 70 09/25/19 07:16 65 09/25/19 07:12 63 24 98 Mechanical Ventilator 80 63 24 09/25/19 07:00 24 117/54 Mechanical Ventilator 80 09/25/19 07:00 63 24 117/54 (75) 99 09/25/19 06:45 65 21 123/95 (104) 100 09/25/19 06:30 64 24 123/61 (81) 99 09/25/19 06:15 69 24 142/101 (115) 99 09/25/19 06:00 24 158/62 Mechanical Ventilator 80 09/25/19 06:00 74 25 156/62 (93) 100 09/25/19 05:45 73 22 142/90 (107) 100 09/25/19 05:41 126/54 09/25/19 05:41 62 126/54 09/25/19 05:30 62 24 126/54 (78) 98 09/25/19 05:15 63 24 128/57 (80) 99 09/25/19 05:02 64 24 80 09/25/19 05:00 64 24 131/55 (80) 99 09/25/19 05:00 24 131/55 Mechanical Ventilator 80 09/25/19 04:45 68 25 132/53 (79) 99 09/25/19 04:30 73 27 137/59 (85) 99 09/25/19 04:15 80 23 161/63 (95) 99 09/25/19 04:00 98.9 83 24 164/66 (98) 99 09/25/19 04:00 24 164/66 Mechanical Ventilator 80 09/25/19 04:00 80 09/25/19 04:00 Mechanical Ventilator Mechanical Ventilator 09/25/19 03:45 84 16 167/115 (132) 99 09/25/19 03:30 84 25 174/78 (110) 98 09/25/19 03:15 83 23 169/68 (101) 98 09/25/19 03:12 74 28 80 09/25/19 03:02 80 09/25/19 03:00 75 23 154/66 (95) 99 09/25/19 03:00 24 154/66 Mechanical Ventilator 80 09/25/19 02:45 62 24 126/35 (65) 96 09/25/19 02:30 64 24 109/47 (67) 96 09/25/19 02:15 63 24 111/43 (65) 96 09/25/19 02:00 24 123/48 Mechanical Ventilator 80 09/25/19 02:00 67 24 123/48 (73) 96 09/25/19 01:45 64 24 111/51 (71) 95 09/25/19 01:30 71 24 133/52 (79) 98 09/25/19 01:15 68 23 137/55 (82) 98 09/25/19 01:00 71 24 145/57 (86) 98 09/25/19 01:00 24 145/57 Mechanical Ventilator 80 09/25/19 00:52 70 24 100 Mechanical Ventilator 80 72 24 09/25/19 00:45 71 25 135/56 (82) 99 09/25/19 00:30 71 25 152/60 (90) 100 09/25/19 00:25 24 125/62 Mechanical Ventilator 80 09/25/19 00:24 125/52 09/25/19 00:24 62 125/62 09/25/19 00:15 67 24 125/52 (76) 98 09/25/19 00:00 98.1 70 23 147/54 (85) 100 09/25/19 00:00 24 120/45 Mechanical Ventilator 80 09/25/19 00:00 Mechanical Ventilator Mechanical Ventilator 09/24/19 23:45 61 24 104/44 (64) 95 09/24/19 23:30 62 24 113/46 (68) 97 09/24/19 23:15 62 24 108/47 (67) 98 09/24/19 23:02 64 09/24/19 23:00 24 108/47 Mechanical Ventilator 80 09/24/19 23:00 65 24 120/45 (70) 98 09/24/19 22:53 61 24 80 09/24/19 22:45 67 24 140/56 (84) 98 09/24/19 22:30 62 24 102/47 (65) 98 09/24/19 22:15 64 24 110/47 (68) 98 09/24/19 22:00 24 107/44 Mechanical Ventilator 80 09/24/19 22:00 64 24 107/44 (65) 98 09/24/19 21:45 68 24 119/55 (76) 98 09/24/19 21:30 75 24 151/55 (87) 99 09/24/19 21:15 66 24 130/55 (80) 98 09/24/19 21:10 66 128/47 09/24/19 21:00 65 23 128/47 (74) 99 09/24/19 21:00 24 128/47 Mechanical Ventilator 80 09/24/19 20:45 65 24 115/46 (69) 99 09/24/19 20:39 69 24 80 09/24/19 20:30 70 25 143/49 (80) 98 09/24/19 20:15 63 24 114/50 (71) 97 09/24/19 20:00 Mechanical Ventilator Mechanical Ventilator 09/24/19 20:00 98.0 63 25 122/52 (75) 98 09/24/19 20:00 24 122/52 Mechanical Ventilator 80 09/24/19 20:00 80 09/24/19 19:45 69 25 150/53 (85) 99 09/24/19 19:30 63 24 115/48 (70) 96 09/24/19 19:27 63 09/24/19 19:00 24 150/52 Mechanical Ventilator 80 09/24/19 19:00 64 24 150/52 (84) 100 09/24/19 18:53 61 24 96 Mechanical Ventilator 80 65 24 09/24/19 18:30 62 24 125/51 (75) 98 09/24/19 18:04 120/49 09/24/19 18:04 65 120/49 09/24/19 18:00 24 120/49 Mechanical Ventilator 80 09/24/19 18:00 65 24 120/49 (72) 96 09/24/19 17:30 67 24 170/71 (104) 89 09/24/19 17:27 69 24 80 09/24/19 17:00 76 25 178/74 (108) 90 09/24/19 17:00 24 178/74 Mechanical Ventilator 80 09/24/19 17:00 72 25 175/63 (100) 88 09/24/19 16:30 78 28 179/71 (107) 91 09/24/19 16:00 98.9 73 33 176/75 (108) 90 09/24/19 16:00 80 09/24/19 16:00 70 09/24/19 16:00 28 176/75 Mechanical Ventilator 80 09/24/19 16:00 Mechanical Ventilator Mechanical Ventilator 09/24/19 15:55 184/66 09/24/19 15:30 73 28 179/68 (105) 89 09/24/19 15:04 86 32 80 09/24/19 15:00 68 30 143/54 (83) 95 09/24/19 15:00 29 143/54 Mechanical Ventilator 80 09/24/19 14:43 24 175/58 Mechanical Ventilator 80 09/24/19 14:30 71 33 155/57 (89) 97 09/24/19 14:00 67 21 156/58 (90) 99 09/24/19 14:00 29 142/58 Mechanical Ventilator 80 09/24/19 13:30 68 24 137/60 (85) 100 09/24/19 13:21 68 24 80 09/24/19 13:00 68 21 142/58 (86) 99 09/24/19 13:00 24 118/52 Mechanical Ventilator 80 09/24/19 12:30 63 24 107/48 (67) 100 09/24/19 12:00 Mechanical Ventilator Mechanical Ventilator 09/24/19 12:00 99.1 66 24 114/47 (69) 99 09/24/19 12:00 24 114/47 Mechanical Ventilator 80 09/24/19 12:00 99/46 09/24/19 12:00 63 99/46 09/24/19 12:00 80 09/24/19 12:00 73 09/24/19 11:30 73 21 154/58 (90) 99 09/24/19 11:08 70 24 80 09/24/19 11:00 71 32 156/57 (90) 98 09/24/19 11:00 24 156/57 Mechanical Ventilator 80 09/24/19 10:30 73 22 158/58 (91) 97 09/24/19 10:15 72 24 157/55 (89) 98 09/24/19 10:00 24 169/72 Mechanical Ventilator 80 09/24/19 10:00 73 20 157/53 (87) 97 09/24/19 09:40 165/60 09/24/19 09:30 62 24 165/60 (95) 98 09/24/19 09:24 64 26 100 Objective: General Appearance: no apparent distress, bedridden middle age chronically ill looking female on vent AC 500-24-60% PEEP 10, sedated Lines, tubes and drains: left neck HD catheter HEENT: normocephalic, atraumatic, anicteric, trach - Shiley #7 cuffed XLT, secretions small amount, velasco color , thick consistency Respiratory/Chest: no accessory muscle use, few scattered rhonchi bilaterally , tachypneic Cardiovascular/Chest: normal rate, regular rhythm - SR on tele Abdomen: normal bowel sounds, non tender, soft, G tube Genitourinary/Rectal: [place] Extremities: no edema Skin Exam: warm/dry, multiple tattoos all over the body Neurologic: abnormal gait, sedated Musculoskeletal: atrophy - BLE Micro: Microbiology Date/Time Source Procedure Growth Status 09/23/19 09:45 Blood Blood Culture - Preliminary NO GROWTH AFTER 24 HOURS Resulted 09/23/19 09:30 Blood Blood Culture - Preliminary NO GROWTH AFTER 24 HOURS Resulted 09/23/19 08:38 Sputum Gram Stain - Final Resulted 09/23/19 08:38 Sputum Culture - Preliminary Gram Negative Bacillus 1 Resulted 09/23/19 08:38 Straight Cath Urine Culture - Preliminary Strep Species, Alpha Hemolytic Resulted Critical Care - Subjective ROS Limited/Unobtainable: Yes Interval Events: dialyzed yesterday; creat down to 2.5 ABG this am noted, stable, no acidosis no resp distress remains on Fentanyl gtt still leucocytosis Condition: critical IV Access: central - L neck temp HD catheter FI02: 60 Vent Support Breath Rate: 24 Vent Support Mode: AC Vent Tidal Volume: 500 Sputum Amount: Scant PEEP: 10.0 PIP: 27 Drips: Fentanyl gtt 250 mcg/hr Tube Feeding Amount: 40 I&O: Intake and Output 09/24/19 09/25/19 19:00 07:00 Intake Total 870.90090 ml 939.15560 ml Output Total 2030 ml 62 ml Balance -1159.91544 ml 877.80102 ml Intake Free Water 25 ml IV Total 365.82950 ml 419.94902 ml Tube Feeding 480 ml 480 ml Other 40 ml Output Urine Total 30 ml 62 ml Hemodialysis UF 2000 ml CXR: BL infiltrates Juve Martinez MD 09/25/19 1132: Critical Care - Asmt/Plan Assessment/Plan: Patient seen and examined with CONTACT PERSON. Agree with above A&P as it reflects our joint deliberations. Vent support, dec PEEP and FiO2 as able Gas exchange improved HHN's Abx per ID HD per renal, monitor volumes TF's DVT Px: Hep SQ FC CCT 40 Critical Care - Subjective ROS Limited/Unobtainable: Yes Interval Events: S/P initiation of HD gas exchange improved Condition: critical IV Access: peripheral EKG Rhythm: Sinus Rhythm Subjective: LILY Labs: Laboratory Tests 09/25/19 03:00: White Blood Count 15.3H, Red Blood Count 2.74L, Hemoglobin 8.8L, Hematocrit 26.8L, Mean Corpuscular Volume 98, Mean Corpuscular Hemoglobin 32.2H, Mean Corpuscular Hemoglobin Concent 32.9, Red Cell Distribution Width 16.4H, Platelet Count 324, Mean Platelet Volume 6.0L, Neutrophils (%) (Auto) 75.7H, Lymphocytes (%) (Auto) 15.8L, Monocytes (%) (Auto) 5.5, Eosinophils (%) (Auto) 2.6, Basophils (%) (Auto) 0.4, Sodium Level 140, Potassium Level 3.7, Chloride Level 102, Carbon Dioxide Level 27, Anion Gap 11, Blood Urea Nitrogen 82H, Creatinine 2.5H, Estimat Glomerular Filtration Rate 20.6, Glucose Level 114H, Calcium Level 8.7, Phosphorus Level 3.0, Magnesium Level 2.7H, Total Bilirubin 0.4, Aspartate Amino Transf (AST/SGOT) 21, Alanine Aminotransferase (ALT/SGPT) 13, Alkaline Phosphatase 171H, C-Reactive Protein, Quantitative 11.0H, Pro-B- Type Natriuretic Peptide > [id number], Total Protein 7.9, Albumin 2.2L, Globulin 5.7 , Albumin/Globulin Ratio 0.4L, Random Vancomycin Level 16.5 09/25/19 07:14: Arterial Blood pH 7.496H, Arterial Blood Partial Pressure CO2 32.4L, Arterial Blood Partial Pressure O2 77.5, Arterial Blood HCO3 24.5, Arterial Blood Oxygen Saturation 95.3, Arterial Blood Base Excess 1.3, Rojas Test Positive Yara Castro NP Sep 25, 2019 09:20 Juve Martinez MD Sep 25, 2019 11:32
[2019-09-25] MEDS: Meropenem 500mg in NS 55ml IVPB SCH (10:06)
[2019-09-25] MEDS ORDERED: NS 275ml ONE ×2 (10:19→13:58)
--- NOTE | 2019-09-25 11:18 | Diagnostic Imaging Report ---
Indication: Shortness of breath Technique: One view of the chest Comparison: 09/23/2019 post dialysis catheter placement radiograph Findings: Stable left jugular temporary dialysis catheter. Bilateral infiltrates versus edema again demonstrated, appearing slightly worse on the left, similar on the right. There also appears to be slightly increased pleural fluid on the left. Right lateral basilar lucency probably represents a skin fold but small pneumothorax not completely excludable, not evident previously. Impression: Suggestion of increasing pleural fluid and/or parenchymal disease on the left. Stable parenchymal disease on the right Cannot exclude small right lateral basilar pneumothorax. Recommend follow-up chest radiograph. Patient's nurse notified of this finding at the time of interpretation
[2019-09-25] MEDS: HydrALAZINE 25mg tab GT SCH ×4 (12:02→23:18)
[2019-09-25] MEDS: Albuterol/Ipratropium 3ml neb HHN SCH ×2 (12:53→19:41)
[2019-09-25] MEDS ORDERED: Tubing IV Secondary IV ONE (13:58)
[2019-09-25] MEDS: dilTIAZem HCl 30mg tab GT SCH ×2 (14:04→21:23)
--- NOTE | 2019-09-25 16:16 | Diagnostic Imaging Report ---
Indication: Dyspnea Technique: One view of the chest Comparison: 09/25/2019 Findings: Previously demonstrated right lateral basilar lucency is no longer evident, was presumably a skin fold artifact. Bilateral infiltrates and left pleural effusion are probably unchanged allowing for slight differences in technique. Impression: No evidence of pneumothorax. Stable findings as described
[2019-09-25] MEDS: Dyna-Hex 2% Top Sol 2oz TOPIC SCH (21:22)
[2019-09-25] MEDS: Sertraline 100mg tab GT SCH (21:23)
[2019-09-25] MEDS: Epoetin Alfa-EPBX(ESRD on dialysis)10,000 unit/ml vial SUBQ SCH (21:23)
[2019-09-26] VITALS (66 sets, daily range): BP systolic 113–215; BP diastolic 50–127
[2019-09-26] MEDS: Albuterol/Ipratropium 3ml neb HHN SCH ×4 (02:30→18:58)
[2019-09-26] MEDS: Acetylcysteine 20% Soln 4ml HHN SCH ×4 (02:30→18:58)
[2019-09-26] MEDS: HydrALAZINE 25mg tab GT SCH ×2 (05:31→12:23)
[2019-09-26] MEDS: dilTIAZem HCl 30mg tab GT SCH ×3 (05:31→21:15)
[2019-09-26] MEDS: fentaNYL 2500mcg/NS 250ml 250 ML IV SCH ×3 (05:33→23:59)
[2019-09-26 05:36] LABS: HEMATOCRIT 24.7 % (37.0-47.0); HEMOGLOBIN 7.9 G/DL (12.0-16.0); MEAN CORPUSCULAR VOLUME 101 FL (80-99); PLATELET COUNT 276 K/UL (150-450); RED BLOOD COUNT 2.45 M/UL (4.20-5.40); RED CELL DISTRIBUTION WIDTH 16.5 % (11.6-14.8); WHITE BLOOD COUNT 11.9 K/UL (4.8-10.8)
[2019-09-26 05:39] LABS: ALANINE AMINOTRANSFERASE 7 U/L (12-78); ALBUMIN/GLOBULIN RATIO 0.4 (1.0-2.7); ALKALINE PHOSPHATASE 164 U/L (46-116); ANION GAP 11 mmol/L (5-15); ASPARTATE AMINO TRANSFERASE 20 U/L (15-37); BILIRUBIN,TOTAL 0.3 MG/DL (0.2-1.0); BLOOD UREA NITROGEN 95 mg/dL (7-18); CALCIUM 9.3 MG/DL (8.5-10.1); CARBON DIOXIDE 29 MMOL/L (21-32); CHLORIDE 102 MMOL/L (98-107); CREATININE 2.8 MG/DL (0.55-1.30); POTASSIUM 3.8 MMOL/L (3.5-5.1); SODIUM 141 MMOL/L (136-145)
[2019-09-26] MEDS: HYDROcodone/Acetamin 10/325 tab GT PRN (07:32)
[2019-09-26] MEDS: Midazolam 2mg/2ml Inj IVP PRN ×3 (07:38→17:11)
--- NOTE | 2019-09-26 08:17 | Infectious Diseases Prog Note ---
Assessment/Plan 49yo F with: Acute hypoxic resp failure: Now on vent Pneumonia, COVID19 neg x3 09/24 CXR: Previously demonstrated right lateral basilar lucency is no longer evident, was presumably a skin fold artifact. Bilateral infiltrates and left pleural effusion are probably unchanged allowing for slight differences in technique. 09/22 Resp cx + GNRs 09/22 BCx NTD 09/22 CXR: worsening BL pna 09/22 UA w/ persistent pyuria, now on HD, UCx +VRE, most likely colonizer as improving wo tx for this 09/19 V/Q scan, low probability of PE 09/18 Rapid COVID PCR neg 09/18 CT chest: Markedly suboptimal examination due to lack of IV contrast material. Bilateral pleural effusions, right greater than left, with bilateral lower lobe consolidation or volume loss. Ground glass densities in the upper lobes bilaterally. This is not specific. Tracheostomy. Increased superior mediastinal density. Stability of adenopathy cannot be excluded. Atherosclerotic change. Gastrostomy. Ascites. Left renal stent with left hydronephrosis and renal atrophy. 09/17 Chest US: Trace right and small left pleural effusions. No safe window identified for bedside thoracentesis. Note that the majority of the left pleural effusion is subpulmonic. 09/16 CXR: Worsening of right lung infiltrates and right effusion. V. duplex: NO DVT D-dimer elevated 09/15 Rapid COVID PCR neg 09/15 Sp cx ESBL P. mirablis 09/14 CXR: Bilateral airspace opacities, preferentially involving the right lung, consistent with multifocal infiltrate. Trace bilateral pleural effusions. No pneumothorax. Rapid COVID PCR neg GPC bacteremia, real vs contaminant; does have hx of infected PPM- could be a possibility- ro endocarditis 09/14 Bcx 03/19 S. epidermis; 09/15 Bcx NTD 2d echo: no vegetations seen UTI 09/14 u/a wbc tnct, nit neg, leuk +3; ucx >100k MDR P. stuarti (S Ceftriaxone, Meropenem) 09/22 UA w/ ongoing pyuria, unchanged Unstageable sacral ulceration Afebrile Leukocytosis, mild; fluctuates bt 12-13 JAVIER on CKD --> now on HD Renal US: Limited exam due to abdominal ascites and shadowing from bowel gas. CT recommended for more sensitive evaluation. Moderate right hydronephrosis. Increased renal parenchymal echogenicity suggesting intrinsic/ medical renal disease. Question indwelling left ureteral stent versus artifact. Bladder not visualized. 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 epi-11/2018, sp > 6weeks IV vancomycin 11/27 SP ABBIE: no evidence for vegetation on any of the valves 11/26/18 SP PPM removal: OR findings:The fibrous capsule enclosing the generator was then opened and there was a [id number] amount of yellowish fluid drainage. The generator was then removed.Atrial and ventricular leads were detached. The necrotic tissue of the pocket was then removed and the pocket was flushed with an antibiotic solution. Capsule, wound tissue and lead tip cx: Neg 2d echo: no vegetation seen US chest: 4.6 x 3.4 x 0.9 cm hypoechoic/anechoic area overlying left chest pacemaker power pack. This could represent either a discrete fluid collection or a focal area of very edematous tissue. Infected fluid pocket also possible. 11/18 Bcx 3/ S. epi; 11/20 Bcx neg; 11/24 Bcx Neg; 11/27 Bcx Neg Hx of PNA 11/2019? sp cx PsA (arnett S), ABC (I Ceftriaxone; otherwise negative) Sp cx MRSA, ABC (I Ceftriaxone; otherwise S) PMH: Afib HTN Dysphagia sp GT Aortic dissection s/p repair 2017, S/p PPM Parkinson's Disease Schizophrenia Anxiety COPD Chronic resp failure s/p trach Hx of tracheal bleeding [place] resident ([facility]) Plan: Continue Meropenem #10 Continue vancomycin #11/14 given prior Staph epi in BCx, though possible contaminant also F/u resp cx 09/22 +GNRs Aggressive volume removal as tolerated by HD, BNP >35,000 VRE in UCx likely colonizer as not on tx for this and improving, thus will not treat 09/22/19 SP 09/16 SP Cefepime #3, Levaquin #3 -Monitor CBC/CMP, temperatures -ICU/ trach/ peg care -Aspiration precautions D/w RN Thank you for this consultation. Will continue to follow along with you. Subjective Allergies: Coded Allergies: No Known Allergies (Unverified , 10/10/17) Tmax 100.1 at MN Remains on vent WBC 11, improving In lots of pain per RN Objective Last 24 Hour Vital Signs Date Time Temp Pulse Resp B/P (MAP) Pulse Ox O2 Delivery O2 Flow Rate FiO2 09/26/19 07:15 75 20 178/68 (104) 100 09/26/19 07:00 60 20 140/54 (82) 97 09/26/19 07:00 20 140/54 Mechanical Ventilator 100 09/26/19 06:54 61 20 100 Mechanical Ventilator 100 60 22 100 09/26/19 06:45 60 20 127/51 (76) 96 09/26/19 06:30 63 20 125/53 (77) 97 09/26/19 06:00 21 128/51 Mechanical Ventilator 100 09/26/19 06:00 70 21 128/51 (76) 97 09/26/19 05:45 76 21 151/59 (89) 97 09/26/19 05:33 23 142/56 Mechanical Ventilator 100 09/26/19 05:31 142/56 09/26/19 05:31 66 142/56 09/26/19 05:30 67 20 133/57 (82) 98 09/26/19 05:00 76 20 151/61 (91) 100 09/26/19 04:46 80 22 100 09/26/19 04:30 79 21 164/64 (97) 99 09/26/19 04:15 79 20 177/89 (118) 99 09/26/19 04:00 Mechanical Ventilator Mechanical Ventilator 09/26/19 04:00 21 177/89 Mechanical Ventilator 100 09/26/19 04:00 99.0 82 21 169/71 (103) 98 09/26/19 04:00 100 09/26/19 03:30 77 21 161/69 (99) 99 09/26/19 03:15 77 23 154/75 (101) 99 09/26/19 03:10 70 21 100 09/26/19 03:07 79 09/26/19 03:00 80 21 165/81 (109) 99 09/26/19 03:00 22 154/75 Mechanical Ventilator 100 09/26/19 02:30 79 20 161/66 (97) 99 09/26/19 02:15 72 20 133/58 (83) 98 09/26/19 02:00 82 25 171/71 (104) 98 09/26/19 02:00 21 133/58 Mechanical Ventilator 100 09/26/19 01:30 83 23 170/71 (104) 100 09/26/19 01:30 76 22 100 Mechanical Ventilator 100 80 24 100 09/26/19 01:15 83 23 163/69 (100) 99 09/26/19 01:00 21 163/69 Mechanical Ventilator 100 09/26/19 01:00 78 21 157/62 (93) 99 09/26/19 00:30 75 21 153/63 (93) 99 09/26/19 00:15 71 21 137/56 (83) 100 09/26/19 00:00 100.1 65 20 115/56 (75) 99 09/26/19 00:00 Mechanical Ventilator Mechanical Ventilator 09/26/19 00:00 21 137/56 Mechanical Ventilator 100 09/25/19 23:45 65 20 126/52 (76) 99 09/25/19 23:30 65 20 125/94 (104) 99 09/25/19 23:30 65 20 100 09/25/19 23:18 144/57 09/25/19 23:09 65 09/25/19 23:00 70 20 144/57 (86) 99 09/25/19 23:00 20 144/57 100 09/25/19 22:45 64 20 112/48 (69) 97 09/25/19 22:30 64 20 113/52 (72) 98 09/25/19 22:15 65 20 112/48 (69) 97 09/25/19 22:00 70 20 114/48 (70) 98 09/25/19 22:00 20 114/48 Mechanical Ventilator 100 09/25/19 21:45 80 22 132/64 (86) 97 09/25/19 21:30 84 27 171/73 (105) 98 09/25/19 21:23 96 165/96 09/25/19 21:23 96 165/96 09/25/19 21:23 89 24 100 09/25/19 21:15 88 22 165/96 (119) 97 09/25/19 21:00 85 22 172/70 (104) 97 09/25/19 21:00 22 165/96 Mechanical Ventilator 100 09/25/19 20:45 90 24 174/83 (113) 98 09/25/19 20:30 89 19 178/76 (110) 97 09/25/19 20:30 24 170/67 Mechanical Ventilator 100 09/25/19 20:15 89 21 170/67 (101) 98 09/25/19 20:03 91 20 174/71 (105) 97 09/25/19 20:00 98.7 89 23 190/70 (110) 97 09/25/19 20:00 Mechanical Ventilator Mechanical Ventilator 09/25/19 20:00 100 09/25/19 19:45 95 19 180/74 (109) 99 09/25/19 19:44 23 190/70 Mechanical Ventilator 100 09/25/19 19:39 95 09/25/19 19:30 95 27 183/87 (119) 97 09/25/19 19:30 95 21 100 Mechanical Ventilator 100 96 25 100 09/25/19 19:00 26 171/73 Endotracheal Tube 100 09/25/19 19:00 90 26 171/73 (105) 97 09/25/19 18:30 77 21 161/69 (99) 99 09/25/19 18:12 143/53 09/25/19 18:00 20 143/53 Endotracheal Tube 100 09/25/19 18:00 66 20 143/53 (83) 100 09/25/19 17:30 63 20 108/45 (66) 98 09/25/19 17:08 63 20 100 09/25/19 17:00 64 20 100/43 (62) 98 09/25/19 17:00 20 100/43 Endotracheal Tube 100 09/25/19 16:30 68 20 116/46 (69) 93 09/25/19 16:00 98.3 72 21 153/128 (136) 94 09/25/19 16:00 100 09/25/19 16:00 Mechanical Ventilator Mechanical Ventilator 09/25/19 16:00 21 153/28 Endotracheal Tube 100 09/25/19 15:36 78 09/25/19 15:30 78 21 153/64 (93) 95 09/25/19 15:21 75 24 100 09/25/19 15:00 78 22 154/65 (94) 95 09/25/19 15:00 21 154/65 Endotracheal Tube 100 09/25/19 14:30 75 22 138/54 (82) 95 09/25/19 14:04 75 143/55 09/25/19 14:00 21 140/57 Endotracheal Tube 100 09/25/19 14:00 75 21 140/57 (84) 94 09/25/19 13:30 75 20 136/57 (83) 95 09/25/19 13:00 81 23 161/64 (96) 93 09/25/19 13:00 23 161/64 Endotracheal Tube 100 09/25/19 12:53 79 20 99 Mechanical Ventilator 80 78 21 09/25/19 12:30 80 19 160/63 (95) 91 09/25/19 12:02 146/62 09/25/19 12:00 Mechanical Ventilator Mechanical Ventilator 09/25/19 12:00 22 146/62 Endotracheal Tube 70 09/25/19 12:00 99.1 80 22 152/60 (90) 92 09/25/19 11:48 80 09/25/19 11:30 79 25 160/60 (93) 92 09/25/19 11:00 23 153/62 Endotracheal Tube 100 09/25/19 11:00 69 23 153/62 (92) 91 09/25/19 10:56 60 09/25/19 10:53 58 20 100 09/25/19 10:30 58 20 110/43 (65) 99 09/25/19 10:07 21 107/62 Endotracheal Tube 10.0 100 09/25/19 10:00 59 21 107/62 (77) 98 09/25/19 10:00 21 107/62 Endotracheal Tube 100 09/25/19 09:30 60 20 119/40 (66) 99 09/25/19 09:22 100 09/25/19 09:20 100 09/25/19 09:00 61 24 121/86 (98) 98 09/25/19 09:00 24 121/86 Endotracheal Tube 100 09/25/19 08:48 61 24 60 09/25/19 08:30 71 19 113/73 (86) 100 Height (Feet): 5 Height (Inches): 5.00 Weight (Pounds): 133 Gen: Older woman, sedated on vent, getting HD Pulm: BL chest rise on vent Abd: Soft, non-distended Ext: No c/c Neuro: Sedated Microbiology Date/Time Source Procedure Growth Status 09/23/19 09:45 Blood Blood Culture - Preliminary NO GROWTH AFTER 48 HOURS Resulted 09/23/19 09:30 Blood Blood Culture - Preliminary NO GROWTH AFTER 48 HOURS Resulted 09/23/19 08:38 Sputum Gram Stain - Final Resulted 09/23/19 08:38 Sputum Culture - Preliminary Pseudomonas Aeruginosa - Mdr Resulted 09/23/19 08:38 Straight Cath Urine Culture - Final Enterococcus Faecium - Vre Complete Laboratory Tests Test 09/26/19 02:55 09/26/19 07:52 White Blood Count 11.9 K/UL (4.8-10.8) H Red Blood Count 2.45 M/UL (4.20-5.40) L Hemoglobin 7.9 G/DL (12.0-16.0) L Hematocrit 24.7 % (37.0-47.0) L Mean Corpuscular Volume 101 FL (80-99) H Mean Corpuscular Hemoglobin 32.2 PG (27.0-31.0) H Mean Corpuscular Hemoglobin Concent 31.9 G/DL (32.0-36.0) L Red Cell Distribution Width 16.5 % (11.6-14.8) H Platelet Count 276 K/UL (150-450) Mean Platelet Volume 6.3 FL (6.5-10.1) L Neutrophils (%) (Auto) % (45.0-75.0) Lymphocytes (%) (Auto) % (20.0-45.0) Monocytes (%) (Auto) % (1.0-10.0) Eosinophils (%) (Auto) % (0.0-3.0) Basophils (%) (Auto) % (0.0-2.0) Sodium Level 141 MMOL/L (136-145) Potassium Level 3.8 MMOL/L (3.5-5.1) Chloride Level 102 MMOL/L (98-107) Carbon Dioxide Level 29 MMOL/L (21-32) Anion Gap 11 mmol/L (5-15) Blood Urea Nitrogen 95 mg/dL (7-18) H Creatinine 2.8 MG/DL (0.55-1.30) H Estimat Glomerular Filtration Rate 18.1 mL/min (>60) Glucose Level 97 MG/DL (74-106) Calcium Level 9.3 MG/DL (8.5-10.1) Total Bilirubin 0.3 MG/DL (0.2-1.0) Aspartate Amino Transf (AST/SGOT) 20 U/L (15-37) Alanine Aminotransferase (ALT/SGPT) 7 U/L (12-78) L Alkaline Phosphatase 164 U/L (46-116) H Total Protein 6.9 G/DL (6.4-8.2) Albumin 2.0 G/DL (3.4-5.0) L Globulin 4.9 g/dL Albumin/Globulin Ratio 0.4 (1.0-2.7) L Arterial Blood pH 7.411 (7.350-7.450) Arterial Blood Partial Pressure CO2 41.3 mmHg (35.0-45.0) Arterial Blood Partial Pressure O2 110.1 mmHg (75.0-100.0) H Arterial Blood HCO3 25.7 mmol/L (22.0-26.0) Arterial Blood Oxygen Saturation 98.0 % (95-100) Arterial Blood Base Excess 0.9 (-2-2) Rojas Test Positive Current Medications Medications (Trade) Dose Ordered Sig/Penny Route PRN Reason Start Time Stop Time Status Last Admin Dose Admin Acetaminophen (Tylenol) 325 mg Q6H PRN GT Temp >100.5 09/23/19 10:45 10/23/19 10:44 09/23/19 18:55 Acetaminophen/ Hydrocodone Bitart ([place] 10/325) 1 tab Q6H PRN GT For Pain 09/21/19 13:30 09/26/19 13:29 09/26/19 07:32 Acetylcysteine (Mucomyst) 200 mg Q6HRT [facility] 09/18/19 19:00 12/17/19 18:59 09/26/19 06:57 Albuterol/ Ipratropium (Albuterol/ Ipratropium) 3 ml Q6HRT [facility] 09/25/19 13:00 09/30/19 12:59 09/26/19 06:57 Chlorhexidine Gluconate (Ling-Hex 2%) 1 applic DAILY@1999 TOPIC 09/23/19 20:00 12/22/19 19:59 09/25/19 21:22 Clonazepam (KlonoPIN) 0.5 mg Q12HR GT 09/21/19 21:00 09/26/19 08:59 09/25/19 21:23 Diltiazem HCl (Cardizem Tab) 30 mg EVERY 8 HOURS GT 09/25/19 14:00 10/15/19 11:59 09/26/19 05:31 Docusate Sodium (Colace) 100 mg TID GT 09/17/19 13:00 10/15/19 08:59 09/25/19 18:12 Epoetin Gelacio (Epoetin Gelacio(ESRD on dialysis)) 10,000 unit MON-MON-MON SUBQ 09/25/19 21:00 12/24/19 20:59 09/25/19 21:23 Fentanyl Citrate 250 ml @ 0 mls/hr Q24H IV 09/21/19 09:30 12/20/19 09:29 09/26/19 05:33 Heparin Sodium (Porcine) (Heparin 5000 units/ml) 5,000 units EVERY 12 HOURS SUBQ 09/17/19 21:00 10/30/19 08:59 09/25/19 21:24 Hydralazine HCl (Apresoline) 10 mg Q4H PRN IV BP over 160 systolic 09/17/19 11:15 12/14/19 11:14 09/24/19 15:55 Hydralazine HCl (Apresoline) 25 mg Q6HR GT 09/25/19 12:00 12/15/19 17:59 09/26/19 05:31 Ipratropium [place] (Atrovent) 500 mcg Q4H PRN HHN Shortness of Breath 09/21/19 13:30 09/26/19 13:29 09/25/19 07:18 Meropenem 500 mg/ Sodium Chloride 55 ml @ 110 mls/hr Q24H IVPB 09/25/19 09:00 09/30/19 08:59 09/25/19 10:06 Metoprolol Tartrate (Lopressor) 25 mg EVERY 12 HOURS GT 09/25/19 21:00 12/14/19 20:59 09/25/19 21:23 Midazolam HCl (Versed 2mg/2ml vial) 1 mg Q4H PRN IVP For Anxiety 09/21/19 09:30 12/20/19 09:29 09/26/19 07:38 Olanzapine (ZyPREXA) 2.5 mg DAILY GT 09/18/19 09:00 10/30/19 08:59 09/25/19 08:07 Pantoprazole (Protonix) 40 mg EVERY 12 HOURS IVP 09/21/19 21:00 10/21/19 20:59 09/25/19 21:23 Sertraline HCl (Zoloft) 100 mg BEDTIME GT 09/17/19 21:00 10/15/19 20:59 09/25/19 21:23 Vancomycin HCl (Vanco pharmacy to dose) 1 ea DAILY PRN MISC Per rx protocol 09/18/19 09:00 10/16/19 13:44 Ro Pack M.D. Sep 26, 2019 08:17
--- NOTE | 2019-09-26 08:53 | Diagnostic Imaging Report ---
Indication: Shortness of breath Technique: One view of the chest Comparison: 09/25/2019 Findings: Bilateral left greater than right interstitial and airspace infiltrates versus edema, large left pleural effusion persist, probably not significantly changed. Tracheostomy, left jugular temporary dialysis catheter are again demonstrated. Impression: Unchanged, over one day, findings as above.
[2019-09-26] MEDS: Pantoprazole Inj IVP SCH ×2 (08:58→21:15)
[2019-09-26] MEDS: Docusate 100mg/10ml Liq GT SCH ×3 (08:58→17:12)
[2019-09-26] MEDS: OLANZapine 2.5mg tab GT SCH (08:59)
[2019-09-26] MEDS: Heparin 5000 units/ml inj SUBQ SCH ×2 (09:00→21:16)
[2019-09-26] MEDS: Meropenem 500mg in NS 55ml IVPB SCH (09:03)
[2019-09-26] MEDS ORDERED: NS 275ml ONE ×2 (09:25→09:33)
[2019-09-26] MEDS ORDERED: Sterile Water Irrig 1000ml IRRIG ONE (09:33)
--- NOTE | 2019-09-26 09:52 | Surgery Progress Note ---
Surgery Progress Note Subjective Additional Comments note: late entry for patient seen 09/24 but because of surgeries was unable to complete note until later. no acute events Objective Last 24 Hour Vital Signs Date Time Temp Pulse Resp B/P (MAP) Pulse Ox O2 Delivery O2 Flow Rate FiO2 09/26/19 08:59 84 142/63 09/26/19 08:51 77 23 80 09/26/19 07:15 75 20 178/68 (104) 100 09/26/19 07:00 60 20 140/54 (82) 97 09/26/19 07:00 20 140/54 Mechanical Ventilator 100 09/26/19 06:54 61 20 100 Mechanical Ventilator 100 60 22 100 09/26/19 06:45 60 20 127/51 (76) 96 09/26/19 06:30 63 20 125/53 (77) 97 09/26/19 06:00 21 128/51 Mechanical Ventilator 100 09/26/19 06:00 70 21 128/51 (76) 97 09/26/19 05:45 76 21 151/59 (89) 97 09/26/19 05:33 23 142/56 Mechanical Ventilator 100 09/26/19 05:31 142/56 09/26/19 05:31 66 142/56 09/26/19 05:30 67 20 133/57 (82) 98 09/26/19 05:00 76 20 151/61 (91) 100 09/26/19 04:46 80 22 100 09/26/19 04:30 79 21 164/64 (97) 99 09/26/19 04:15 79 20 177/89 (118) 99 09/26/19 04:00 Mechanical Ventilator Mechanical Ventilator 09/26/19 04:00 21 177/89 Mechanical Ventilator 100 09/26/19 04:00 99.0 82 21 169/71 (103) 98 09/26/19 04:00 100 09/26/19 03:30 77 21 161/69 (99) 99 09/26/19 03:15 77 23 154/75 (101) 99 09/26/19 03:10 70 21 100 09/26/19 03:07 79 09/26/19 03:00 80 21 165/81 (109) 99 09/26/19 03:00 22 154/75 Mechanical Ventilator 100 09/26/19 02:30 79 20 161/66 (97) 99 09/26/19 02:15 72 20 133/58 (83) 98 09/26/19 02:00 82 25 171/71 (104) 98 09/26/19 02:00 21 133/58 Mechanical Ventilator 100 09/26/19 01:30 83 23 170/71 (104) 100 09/26/19 01:30 76 22 100 Mechanical Ventilator 100 80 24 100 09/26/19 01:15 83 23 163/69 (100) 99 09/26/19 01:00 21 163/69 Mechanical Ventilator 100 09/26/19 01:00 78 21 157/62 (93) 99 09/26/19 00:30 75 21 153/63 (93) 99 09/26/19 00:15 71 21 137/56 (83) 100 09/26/19 00:00 100.1 65 20 115/56 (75) 99 09/26/19 00:00 Mechanical Ventilator Mechanical Ventilator 09/26/19 00:00 21 137/56 Mechanical Ventilator 100 09/25/19 23:45 65 20 126/52 (76) 99 09/25/19 23:30 65 20 125/94 (104) 99 09/25/19 23:30 65 20 100 09/25/19 23:18 144/57 09/25/19 23:09 65 09/25/19 23:00 70 20 144/57 (86) 99 09/25/19 23:00 20 144/57 100 09/25/19 22:45 64 20 112/48 (69) 97 09/25/19 22:30 64 20 113/52 (72) 98 09/25/19 22:15 65 20 112/48 (69) 97 09/25/19 22:00 70 20 114/48 (70) 98 09/25/19 22:00 20 114/48 Mechanical Ventilator 100 09/25/19 21:45 80 22 132/64 (86) 97 09/25/19 21:30 84 27 171/73 (105) 98 09/25/19 21:23 96 165/96 09/25/19 21:23 96 165/96 09/25/19 21:23 89 24 100 09/25/19 21:15 88 22 165/96 (119) 97 09/25/19 21:00 85 22 172/70 (104) 97 09/25/19 21:00 22 165/96 Mechanical Ventilator 100 09/25/19 20:45 90 24 174/83 (113) 98 09/25/19 20:30 89 19 178/76 (110) 97 09/25/19 20:30 24 170/67 Mechanical Ventilator 100 09/25/19 20:15 89 21 170/67 (101) 98 09/25/19 20:03 91 20 174/71 (105) 97 09/25/19 20:00 98.7 89 23 190/70 (110) 97 09/25/19 20:00 Mechanical Ventilator Mechanical Ventilator 09/25/19 20:00 100 09/25/19 19:45 95 19 180/74 (109) 99 09/25/19 19:44 23 190/70 Mechanical Ventilator 100 09/25/19 19:39 95 09/25/19 19:30 95 27 183/87 (119) 97 09/25/19 19:30 95 21 100 Mechanical Ventilator 100 96 25 100 09/25/19 19:00 26 171/73 Endotracheal Tube 100 09/25/19 19:00 90 26 171/73 (105) 97 09/25/19 18:30 77 21 161/69 (99) 99 09/25/19 18:12 143/53 09/25/19 18:00 20 143/53 Endotracheal Tube 100 09/25/19 18:00 66 20 143/53 (83) 100 09/25/19 17:30 63 20 108/45 (66) 98 09/25/19 17:08 63 20 100 09/25/19 17:00 64 20 100/43 (62) 98 09/25/19 17:00 20 100/43 Endotracheal Tube 100 09/25/19 16:30 68 20 116/46 (69) 93 09/25/19 16:00 98.3 72 21 153/128 (136) 94 09/25/19 16:00 100 09/25/19 16:00 Mechanical Ventilator Mechanical Ventilator 09/25/19 16:00 21 153/28 Endotracheal Tube 100 09/25/19 15:36 78 09/25/19 15:30 78 21 153/64 (93) 95 09/25/19 15:21 75 24 100 09/25/19 15:00 78 22 154/65 (94) 95 09/25/19 15:00 21 154/65 Endotracheal Tube 100 09/25/19 14:30 75 22 138/54 (82) 95 09/25/19 14:04 75 143/55 09/25/19 14:00 21 140/57 Endotracheal Tube 100 09/25/19 14:00 75 21 140/57 (84) 94 09/25/19 13:30 75 20 136/57 (83) 95 09/25/19 13:00 81 23 161/64 (96) 93 09/25/19 13:00 23 161/64 Endotracheal Tube 100 09/25/19 12:53 79 20 99 Mechanical Ventilator 80 78 21 09/25/19 12:30 80 19 160/63 (95) 91 09/25/19 12:02 146/62 09/25/19 12:00 Mechanical Ventilator Mechanical Ventilator 09/25/19 12:00 22 146/62 Endotracheal Tube 70 09/25/19 12:00 99.1 80 22 152/60 (90) 92 09/25/19 11:48 80 09/25/19 11:30 79 25 160/60 (93) 92 09/25/19 11:00 23 153/62 Endotracheal Tube 100 09/25/19 11:00 69 23 153/62 (92) 91 09/25/19 10:56 60 09/25/19 10:53 58 20 100 09/25/19 10:30 58 20 110/43 (65) 99 09/25/19 10:07 21 107/62 Endotracheal Tube 10.0 100 09/25/19 10:00 59 21 107/62 (77) 98 09/25/19 10:00 21 107/62 Endotracheal Tube 100 I&O Intake and Output 09/25/19 09/26/19 19:00 07:00 Intake Total 943.96 ml 832.54 ml Output Total 30 ml 65 ml Balance 913.96 ml 767.54 ml Intake Free Water 100 ml IV Total 363.96 ml 312.54 ml Tube Feeding 480 ml 480 ml Other 40 ml Output Urine Total 30 ml 65 ml # Bowel Movements 3 Dressing: other Wound: other Cardiovascular: RSR Respiratory: decreased breath sounds Abdomen: soft, non-tender, present bowel sounds Extremities: no cyanosis Laboratory Tests Test 09/26/19 02:55 09/26/19 07:52 White Blood Count 11.9 K/UL (4.8-10.8) H Red Blood Count 2.45 M/UL (4.20-5.40) L Hemoglobin 7.9 G/DL (12.0-16.0) L Hematocrit 24.7 % (37.0-47.0) L Mean Corpuscular Volume 101 FL (80-99) H Mean Corpuscular Hemoglobin 32.2 PG (27.0-31.0) H Mean Corpuscular Hemoglobin Concent 31.9 G/DL (32.0-36.0) L Red Cell Distribution Width 16.5 % (11.6-14.8) H Platelet Count 276 K/UL (150-450) Mean Platelet Volume 6.3 FL (6.5-10.1) L Neutrophils (%) (Auto) % (45.0-75.0) Lymphocytes (%) (Auto) % (20.0-45.0) Monocytes (%) (Auto) % (1.0-10.0) Eosinophils (%) (Auto) % (0.0-3.0) Basophils (%) (Auto) % (0.0-2.0) Sodium Level 141 MMOL/L (136-145) Potassium Level 3.8 MMOL/L (3.5-5.1) Chloride Level 102 MMOL/L (98-107) Carbon Dioxide Level 29 MMOL/L (21-32) Anion Gap 11 mmol/L (5-15) Blood Urea Nitrogen 95 mg/dL (7-18) H Creatinine 2.8 MG/DL (0.55-1.30) H Estimat Glomerular Filtration Rate 18.1 mL/min (>60) Glucose Level 97 MG/DL (74-106) Calcium Level 9.3 MG/DL (8.5-10.1) Phosphorus Level 4.0 MG/DL (2.5-4.9) Magnesium Level 2.9 MG/DL (1.8-2.4) H Total Bilirubin 0.3 MG/DL (0.2-1.0) Aspartate Amino Transf (AST/SGOT) 20 U/L (15-37) Alanine Aminotransferase (ALT/SGPT) 7 U/L (12-78) L Alkaline Phosphatase 164 U/L (46-116) H Total Protein 6.9 G/DL (6.4-8.2) Albumin 2.0 G/DL (3.4-5.0) L Globulin 4.9 g/dL Albumin/Globulin Ratio 0.4 (1.0-2.7) L Arterial Blood pH 7.411 (7.350-7.450) Arterial Blood Partial Pressure CO2 41.3 mmHg (35.0-45.0) Arterial Blood Partial Pressure O2 110.1 mmHg (75.0-100.0) H Arterial Blood HCO3 25.7 mmol/L (22.0-26.0) Arterial Blood Oxygen Saturation 98.0 % (95-100) Arterial Blood Base Excess 0.9 (-2-2) Rojas Test Positive Plan Problems: (1) Anemia (2) Proteinuria (3) UTI (urinary tract infection) (4) ARF (acute renal failure) (5) ACS (acute coronary syndrome) (6) Respiratory failure, acute and chronic (7) HCAP (healthcare-associated pneumonia) (8) Abrasion of lip, initial encounter (9) COPD with exacerbation (10) Hypokalemia (11) Sepsis Assessment & Plan: Leukocytosis, anemia, abnormal labs. Renal insufficiency potentially dehydrated Abnormal LFTs alk phos elevated Urine noted significant bacteria likely UTI etiology Wound stable still requiring local care IV antibiotics per infectious disease Discussed with engine installer Dr. Berkowitz air mattress turn q2h nutritional tf will follow with recs thank you CT noted pending VQ scan - noted poor study low prob PE work respiratory increasing needs sedation weaning vent settings 80% peep 10 now comfortable Hd line in receiving HD (12) Chronic respiratory failure (13) Ascites (14) Bacteremia (15) Hypernatremia (16) Pleural effusion (17) Pacemaker (18) Aortic dissection, thoracic (19) Tracheostomy in place Assessment & Plan: trach stable no bleeding currently likely tongue etiology of mild oozing currently hemostatic without trauma (20) Feeding by G-tube Assessment & Plan: okay to resume tube feeds via g tube patent and functional dressings okay DAILY ESTIMATED NEEDS: Needs based on Pulmonary, wound 49kg 30-35 kcals/kg 3635-2975 total kcals 1.25-2 g protein/kg 61-98 g total protein Fluid per MD NUTRITION DIAGNOSIS: * Swallowing difficulty R/T dysphagia, respiratory status as evidenced by vent dep via T-collar, GT Dep. (CURRENT TF: Nepro @45ml/hr x 24 hrs) ENTERAL NUTRITION RECOMMENDATIONS: Nepro @ 40ml/hr x 24 hrs to provide 960ml, 1728kcal, 78g prot, 698ml free water * Rec LOWER current rate to 40ml/hr for 24 hrs run. * Water flush of 100ml q 6 hrs per orders * HOB over 30 degrees ADDITIONAL RECOMMENDATIONS: * Per SNF: HT=63", IN=115thw -> rec calibrated bedscale wt * Pt on Nepro MANAGER EQUIPMENT, possible h/o electrolyte imbalance -> monitor lytes closely (K low at this time) * RENTAL AGENT eval for oral grat if appropriate * F/up w/ WC eval-> add FRANKLIN in 4oz H20 BID via GT (21) JAVIER (acute kidney injury) (22) Elevated alkaline phosphatase level Assessment & Plan: noted on labs trend US ordered will follow with recs thank you (23) Acute encephalopathy (24) GT CLOGGED (25) Sacral decubitus ulcer, stage IV Assessment & Plan: Pt presented on admission with Full thickness stage 4 Sacral Pressure injury which extends into R gluteal cheek. Base of wound is granular with bone exposure at base of sacrococcygeal.(L)10.5cm x (W06.5cm x (D) 2.8cm , undermining 11-3 by 3.6cm @12 o'clock. small amt serosanguineous exudate noted . Sheridan epithelial along edges bordered by darker skin tone without erythema. Resolving Pressure injury L ischium. Base of wound is 95% pink epithelial ,5% noni at center base of wound. No exudate noted. Both heels are boggy with non-Blanching erythema. Tx.plan: Cleanse Sacral wound with Saline. Loosely pack with Hydrogel impregnated Kerlix. Apply Moisture Barrier Periwound. Cover with Optifoam drsg Daily and prn. Apply Moisture Barrier paste to L Ischium. Cover with Optifoam drsg. Changee very 3 days and prn. Apply Cavilon Skin Barrier to both heels. Cover each heel with Optifoam drsgs. Change every 7 days and prn. Reposition at least every 2hours or as tolerated. Off-load heels with pillow. APM/JENNIFER Mattress overlay. Lane Saavedra Sep 26, 2019 09:52
--- NOTE | 2019-09-26 14:25 | Nephrology Progress Note ---
Assessment/Plan Problem List: (1) JAVIER (acute kidney injury) (2) Renal failure (ARF), acute on chronic (3) Dehydration (4) Electrolyte imbalance (5) Anemia (6) Respiratory failure, acute and chronic (7) COPD with exacerbation Assessment Patient is presented with sepsis and pneumonia and UTI Patient has acute renal failure, possible underlying chronic kidney failure Severe anemia Electrolyte imbalances: Hyponatremia, hypo-kalemia Chronic respiratory failure, COPD exacerbation Plan September 25: Lab reviewed. Currently on hemodialysis. Tolerating well. Stable from renal standpoint of view. Blood pressure medication adjusted by increasing hydralazine. September 24: Lab reviewed. ABG reviewed. Both lab and ABG much improved. Patient was dialyzed yesterday. We will attempt dialysis tomorrow again. Will adjust that blood pressure medication dosages. September 23: Lab reviewed. ABG reviewed. Patient acidotic. IV bicarb 1 dose is given. Patient has dialysis catheter. Will order dialysis for ultrafiltration and correction of acid-base. Discussed with ERASMO Mohr. September 22: Labs reviewed. Potassium high. Kayexalate and Reglan given. Will discuss with the consultants regarding initiation of dialysis. September 21: Patient is being sedated. Labs reviewed. Potassium supplement discontinued. GFR 20. Continue per current treatment plan. Dialysis and ultrafiltration is a consideration. September 20: Patient periodically agitated. Labs reviewed. Creatinine 2.4. Medication reviewed. Continue per consultants. Calculated creatinine clearance 21. May need isolated ultrafiltration on dialysis. Will discuss with PMD. Meanwhile hemoglobin is lower, defer transfusion to PMD. September 19: DC IV fluid. Zaroxolyn via GT tube. Potassium supplement. Attempt to diurese. Chest CT as bilateral pleural effusion. If diuresis unsuccessful, will consider dialysis and ultrafiltration. September 18: Potassium supplement IV given. Hemoglobin stable. Patient remains full code. Continue per consultants. Previously: Potassium supplement IV Slow IV hydration Epogen subcu Adjust blood pressure medication IV fluid, rate adjusted Norman catheter, intake and output Monitor renal parameters Avoid nephrotoxic's Antibiotics Per orders 2D echocardiogram Kidney ultrasound Subjective ROS Limited/Unobtainable: Yes Objective Objective Last 24 Hour Vital Signs Date Time Temp Pulse Resp B/P (MAP) Pulse Ox O2 Delivery O2 Flow Rate FiO2 09/26/19 13:06 76 160/62 09/26/19 12:25 75 24 100 Mechanical Ventilator 70 78 21 70 09/26/19 12:23 164/71 09/26/19 11:14 70 09/26/19 11:14 72 24 70 09/26/19 10:30 69 20 121/56 (77) 98 09/26/19 10:00 78 21 168/52 (90) 96 09/26/19 09:30 82 25 169/67 (101) 97 09/26/19 09:00 75 22 153/127 (136) 96 09/26/19 08:59 84 142/63 09/26/19 08:51 77 23 80 09/26/19 08:30 75 21 149/64 (92) 100 09/26/19 08:00 74 09/26/19 08:00 80 09/26/19 08:00 98.4 73 24 156/64 (94) 100 09/26/19 08:00 Mechanical Ventilator Mechanical Ventilator 09/26/19 07:30 72 19 162/65 (97) 100 09/26/19 07:15 75 20 178/68 (104) 100 09/26/19 07:00 60 20 140/54 (82) 97 09/26/19 07:00 20 140/54 Mechanical Ventilator 100 09/26/19 06:54 61 20 100 Mechanical Ventilator 100 60 22 100 09/26/19 06:45 60 20 127/51 (76) 96 09/26/19 06:30 63 20 125/53 (77) 97 09/26/19 06:00 21 128/51 Mechanical Ventilator 100 09/26/19 06:00 70 21 128/51 (76) 97 09/26/19 05:45 76 21 151/59 (89) 97 09/26/19 05:33 23 142/56 Mechanical Ventilator 100 09/26/19 05:31 142/56 09/26/19 05:31 66 142/56 09/26/19 05:30 67 20 133/57 (82) 98 09/26/19 05:00 76 20 151/61 (91) 100 09/26/19 04:46 80 22 100 09/26/19 04:30 79 21 164/64 (97) 99 09/26/19 04:15 79 20 177/89 (118) 99 09/26/19 04:00 Mechanical Ventilator Mechanical Ventilator 09/26/19 04:00 21 177/89 Mechanical Ventilator 100 09/26/19 04:00 99.0 82 21 169/71 (103) 98 09/26/19 04:00 100 09/26/19 03:30 77 21 161/69 (99) 99 09/26/19 03:15 77 23 154/75 (101) 99 09/26/19 03:10 70 21 100 09/26/19 03:07 79 09/26/19 03:00 80 21 165/81 (109) 99 09/26/19 03:00 22 154/75 Mechanical Ventilator 100 09/26/19 02:30 79 20 161/66 (97) 99 09/26/19 02:15 72 20 133/58 (83) 98 09/26/19 02:00 82 25 171/71 (104) 98 09/26/19 02:00 21 133/58 Mechanical Ventilator 100 09/26/19 01:30 83 23 170/71 (104) 100 09/26/19 01:30 76 22 100 Mechanical Ventilator 100 80 24 100 09/26/19 01:15 83 23 163/69 (100) 99 09/26/19 01:00 21 163/69 Mechanical Ventilator 100 09/26/19 01:00 78 21 157/62 (93) 99 09/26/19 00:30 75 21 153/63 (93) 99 09/26/19 00:15 71 21 137/56 (83) 100 09/26/19 00:00 100.1 65 20 115/56 (75) 99 09/26/19 00:00 Mechanical Ventilator Mechanical Ventilator 09/26/19 00:00 21 137/56 Mechanical Ventilator 100 09/25/19 23:45 65 20 126/52 (76) 99 09/25/19 23:30 65 20 125/94 (104) 99 09/25/19 23:30 65 20 100 09/25/19 23:18 144/57 09/25/19 23:09 65 09/25/19 23:00 70 20 144/57 (86) 99 09/25/19 23:00 20 144/57 100 09/25/19 22:45 64 20 112/48 (69) 97 09/25/19 22:30 64 20 113/52 (72) 98 09/25/19 22:15 65 20 112/48 (69) 97 09/25/19 22:00 70 20 114/48 (70) 98 8/12/20 22:00 20 114/48 Mechanical Ventilator 100 09/25/19 21:45 80 22 132/64 (86) 97 09/25/19 21:30 84 27 171/73 (105) 98 09/25/19 21:23 96 165/96 09/25/19 21:23 96 165/96 09/25/19 21:23 89 24 100 09/25/19 21:15 88 22 165/96 (119) 97 09/25/19 21:00 85 22 172/70 (104) 97 09/25/19 21:00 22 165/96 Mechanical Ventilator 100 09/25/19 20:45 90 24 174/83 (113) 98 09/25/19 20:30 89 19 178/76 (110) 97 09/25/19 20:30 24 170/67 Mechanical Ventilator 100 09/25/19 20:15 89 21 170/67 (101) 98 09/25/19 20:03 91 20 174/71 (105) 97 09/25/19 20:00 98.7 89 23 190/70 (110) 97 09/25/19 20:00 Mechanical Ventilator Mechanical Ventilator 09/25/19 20:00 100 09/25/19 19:45 95 19 180/74 (109) 99 09/25/19 19:44 23 190/70 Mechanical Ventilator 100 09/25/19 19:39 95 09/25/19 19:30 95 27 183/87 (119) 97 09/25/19 19:30 95 21 100 Mechanical Ventilator 100 96 25 100 09/25/19 19:00 26 171/73 Endotracheal Tube 100 09/25/19 19:00 90 26 171/73 (105) 97 09/25/19 18:30 77 21 161/69 (99) 99 09/25/19 18:12 143/53 09/25/19 18:00 20 143/53 Endotracheal Tube 100 09/25/19 18:00 66 20 143/53 (83) 100 09/25/19 17:30 63 20 108/45 (66) 98 09/25/19 17:08 63 20 100 09/25/19 17:00 64 20 100/43 (62) 98 09/25/19 17:00 20 100/43 Endotracheal Tube 100 09/25/19 16:30 68 20 116/46 (69) 93 09/25/19 16:00 98.3 72 21 153/128 (136) 94 09/25/19 16:00 100 09/25/19 16:00 Mechanical Ventilator Mechanical Ventilator 09/25/19 16:00 21 153/28 Endotracheal Tube 100 09/25/19 15:36 78 09/25/19 15:30 78 21 153/64 (93) 95 09/25/19 15:21 75 24 100 09/25/19 15:00 78 22 154/65 (94) 95 09/25/19 15:00 21 154/65 Endotracheal Tube 100 09/25/19 14:30 75 22 138/54 (82) 95 Intake and Output 09/25/19 09/26/19 19:00 07:00 Intake Total 943.96 ml 832.54 ml Output Total 30 ml 65 ml Balance 913.96 ml 767.54 ml Intake Free Water 100 ml IV Total 363.96 ml 312.54 ml Tube Feeding 480 ml 480 ml Other 40 ml Output Urine Total 30 ml 65 ml # Bowel Movements 3 Laboratory Tests 09/26/19 02:55: White Blood Count 11.9H, Red Blood Count 2.45L, Hemoglobin 7.9L, Hematocrit 24.7L, Mean Corpuscular Volume 101H, Mean Corpuscular Hemoglobin 32.2H, Mean Corpuscular Hemoglobin Concent 31.9L, Red Cell Distribution Width 16.5H, Platelet Count 276, Mean Platelet Volume 6.3L, Neutrophils (%) (Auto) , Lymphocytes (%) (Auto) , Monocytes (%) (Auto) , Eosinophils (%) (Auto) , Basophils (%) (Auto) , Sodium Level 141, Potassium Level 3.8, Chloride Level 102 , Carbon Dioxide Level 29, Anion Gap 11, Blood Urea Nitrogen 95H, Creatinine 2.8H, Estimat Glomerular Filtration Rate 18.1, Glucose Level 97, Calcium Level 9.3, Phosphorus Level 4.0, Magnesium Level 2.9H, Total Bilirubin 0.3, Aspartate Amino Transf (AST/SGOT) 20, Alanine Aminotransferase (ALT/SGPT) 7L, Alkaline Phosphatase 164H, Total Protein 6.9, Albumin 2.0L, Globulin 4.9, Albumin/ Globulin Ratio 0.4L 09/26/19 07:52: Arterial Blood pH 7.411, Arterial Blood Partial Pressure CO2 41.3, Arterial Blood Partial Pressure O2 110.1H, Arterial Blood HCO3 25.7, Arterial Blood Oxygen Saturation 98.0, Arterial Blood Base Excess 0.9, Rojas Test Positive Height (Feet): 5 Height (Inches): 5.00 Weight (Pounds): 133 General Appearance: no apparent distress EENT: other - Trach to vent Cardiovascular: normal rate Respiratory/Chest: decreased breath sounds Abdomen: soft Objective No change Johnny Houston MD Sep 26, 2019 14:25
--- NOTE | 2019-09-26 16:13 | Pulmonolgy Critical Care Note ---
Yara Castro SALES AND SERVICE ASSOCIATE 09/26/19 1612: Critical Care - Asmt/Plan Assessment/Plan: ASSESSMENT Acute on chronic hypoxemic respiratory failure ( trach dependent), now on vent Tracheostomy status, s/p change to cuffed trach Sepsis Pulmonary edema Pleural effusion -worsening left pl effusion Pneumonia UTI CHF ? cardiorenal COPD Acute kidney injury and chronic kidney disease-requiring start of HD Hypertension Atrial fibrillation Moderate pulm HTN Moderate AR Dysphagia , feeding by G-tube Electrolyte abnormalities Anemia Toxic metabolic encephalopathy likely due to sepsis and ARF HTN PAF PLAN OF CARE ICU on vent AC trach changed 8/4 pm from uncuffed to cuffed Shiley#[address] chest w/out contrast: - Bilateral pleural effusions, right greater than left, with bilateral lower lobe consolidation or volume loss. -Ground-glass densities in the upper lobes bilaterally. This is not specific. -Tracheostomy. -Increased superior mediastinal density. Stability of adenopathy cannot be excluded. -Atherosclerotic change. -Gastrostomy. -Ascites. -Left renal stent with left hydronephrosis and renal atrophy. VQ scan -> low probability for PE worsening resp status was due to need for HD, now after HD started, resp status improving, down to PEEP 5 and AC 20 last CXR 09/25 -> Bilateral left greater than right interstitial and airspace infiltrates versus edema, large left pleural effusion persist, probably not significantly changed. Tracheostomy, left jugular temporary dialysis catheter are again demonstrated. trach care , pulmonary toilet rapid COVID 19 NGT x3 sedation with fentanyl gtt and Versed prn attempt another thoracentesis 8/14 am aspiration precautions venous Duplex BLE -> NGT DVT prophylaxis pulm toilet, continue Mucomyst to help in loosening secretions abx as per ID-Meropenem, Vanco SCX 8/3 + Proteus, SCX 8/10 Pseudomonas MDR UCX 8/2 + Providencia , UCX 8/10 VRE 10-20 K only BCX 8/2 Staph epidermidis, BCX 8/3 NGT , BCX 8/10- NGTD monitor volumes was on gentle IVF-> dc monitor renal parameters, lytes, correct lytes as needed , avoid nephrotoxics s/p prior diuretic-Lasix now on HD ECHO with pEF , moderate pulm HTN and moderate AR BP management with current regimen of BB, Cardizem and Hydralazine, remains in SR monitor HH with goal to keep Hgb >7, heme on board on EPO supportive care pain management wound care bowel regimen thank you for a consult Critical Care - Objective Last 24 Hour Vital Signs Date Time Temp Pulse Resp B/P (MAP) Pulse Ox O2 Delivery O2 Flow Rate FiO2 09/26/19 15:35 21 143/92 Mechanical Ventilator 80 09/26/19 15:15 75 20 143/92 (109) 96 09/26/19 15:00 80 21 158/62 (94) 97 09/26/19 14:43 81 22 80 09/26/19 14:30 84 21 163/66 (98) 97 09/26/19 14:00 80 09/26/19 14:00 22 160/62 Mechanical Ventilator 70 09/26/19 14:00 82 26 174/67 (102) 96 09/26/19 13:30 72 21 133/55 (81) 91 09/26/19 13:06 76 160/62 09/26/19 13:00 21 175/69 Mechanical Ventilator 70 09/26/19 13:00 78 22 160/62 (94) 97 09/26/19 12:30 79 18 182/72 (108) 100 09/26/19 12:25 75 24 100 Mechanical Ventilator 70 78 21 70 09/26/19 12:23 164/71 09/26/19 12:00 98.4 74 23 175/69 (104) 99 09/26/19 12:00 21 155/67 Mechanical Ventilator 70 09/26/19 12:00 70 09/26/19 12:00 78 09/26/19 12:00 Mechanical Ventilator Mechanical Ventilator 09/26/19 11:30 76 22 184/70 (108) 99 09/26/19 11:14 70 09/26/19 11:14 72 24 70 09/26/19 11:00 21 168/52 Mechanical Ventilator 70 09/26/19 11:00 71 20 155/67 (96) 100 09/26/19 10:30 69 20 121/56 (77) 98 09/26/19 10:00 78 21 168/52 (90) 96 09/26/19 10:00 21 168/52 Mechanical Ventilator 80 09/26/19 09:30 82 25 169/67 (101) 97 09/26/19 09:00 75 22 153/127 (136) 96 09/26/19 09:00 21 143/97 Mechanical Ventilator 80 09/26/19 08:59 84 142/63 09/26/19 08:51 77 23 80 09/26/19 08:30 75 21 149/64 (92) 100 09/26/19 08:00 74 09/26/19 08:00 80 09/26/19 08:00 21 156/64 Mechanical Ventilator 100 09/26/19 08:00 98.4 73 24 156/64 (94) 100 09/26/19 08:00 Mechanical Ventilator Mechanical Ventilator 09/26/19 07:30 72 19 162/65 (97) 100 09/26/19 07:15 75 20 178/68 (104) 100 09/26/19 07:00 60 20 140/54 (82) 97 09/26/19 07:00 20 140/54 Mechanical Ventilator 100 09/26/19 06:54 61 20 100 Mechanical Ventilator 100 60 22 100 09/26/19 06:45 60 20 127/51 (76) 96 09/26/19 06:30 63 20 125/53 (77) 97 09/26/19 06:00 21 128/51 Mechanical Ventilator 100 09/26/19 06:00 70 21 128/51 (76) 97 09/26/19 05:45 76 21 151/59 (89) 97 09/26/19 05:33 23 142/56 Mechanical Ventilator 100 09/26/19 05:31 142/56 09/26/19 05:31 66 142/56 09/26/19 05:30 67 20 133/57 (82) 98 09/26/19 05:00 76 20 151/61 (91) 100 09/26/19 04:46 80 22 100 09/26/19 04:30 79 21 164/64 (97) 99 09/26/19 04:15 79 20 177/89 (118) 99 09/26/19 04:00 Mechanical Ventilator Mechanical Ventilator 09/26/19 04:00 21 177/89 Mechanical Ventilator 100 09/26/19 04:00 99.0 82 21 169/71 (103) 98 09/26/19 04:00 100 09/26/19 03:30 77 21 161/69 (99) 99 09/26/19 03:15 77 23 154/75 (101) 99 09/26/19 03:10 70 21 100 09/26/19 03:07 79 09/26/19 03:00 80 21 165/81 (109) 99 09/26/19 03:00 22 154/75 Mechanical Ventilator 100 09/26/19 02:30 79 20 161/66 (97) 99 09/26/19 02:15 72 20 133/58 (83) 98 09/26/19 02:00 82 25 171/71 (104) 98 09/26/19 02:00 21 133/58 Mechanical Ventilator 100 09/26/19 01:30 83 23 170/71 (104) 100 09/26/19 01:30 76 22 100 Mechanical Ventilator 100 80 24 100 09/26/19 01:15 83 23 163/69 (100) 99 09/26/19 01:00 21 163/69 Mechanical Ventilator 100 09/26/19 01:00 78 21 157/62 (93) 99 09/26/19 00:30 75 21 153/63 (93) 99 09/26/19 00:15 71 21 137/56 (83) 100 09/26/19 00:00 100.1 65 20 115/56 (75) 99 09/26/19 00:00 Mechanical Ventilator Mechanical Ventilator 09/26/19 00:00 21 137/56 Mechanical Ventilator 100 09/25/19 23:45 65 20 126/52 (76) 99 09/25/19 23:30 65 20 125/94 (104) 99 09/25/19 23:30 65 20 100 09/25/19 23:18 144/57 09/25/19 23:09 65 09/25/19 23:00 70 20 144/57 (86) 99 09/25/19 23:00 20 144/57 100 09/25/19 22:45 64 20 112/48 (69) 97 09/25/19 22:30 64 20 113/52 (72) 98 09/25/19 22:15 65 20 112/48 (69) 97 09/25/19 22:00 70 20 114/48 (70) 98 09/25/19 22:00 20 114/48 Mechanical Ventilator 100 09/25/19 21:45 80 22 132/64 (86) 97 09/25/19 21:30 84 27 171/73 (105) 98 09/25/19 21:23 96 165/96 09/25/19 21:23 96 165/96 09/25/19 21:23 89 24 100 09/25/19 21:15 88 22 165/96 (119) 97 09/25/19 21:00 85 22 172/70 (104) 97 09/25/19 21:00 22 165/96 Mechanical Ventilator 100 09/25/19 20:45 90 24 174/83 (113) 98 09/25/19 20:30 89 19 178/76 (110) 97 09/25/19 20:30 24 170/67 Mechanical Ventilator 100 09/25/19 20:15 89 21 170/67 (101) 98 09/25/19 20:03 91 20 174/71 (105) 97 09/25/19 20:00 98.7 89 23 190/70 (110) 97 09/25/19 20:00 Mechanical Ventilator Mechanical Ventilator 09/25/19 20:00 100 09/25/19 19:45 95 19 180/74 (109) 99 09/25/19 19:44 23 190/70 Mechanical Ventilator 100 09/25/19 19:39 95 09/25/19 19:30 95 27 183/87 (119) 97 09/25/19 19:30 95 21 100 Mechanical Ventilator 100 96 25 100 09/25/19 19:00 26 171/73 Endotracheal Tube 100 09/25/19 19:00 90 26 171/73 (105) 97 09/25/19 18:30 77 21 161/69 (99) 99 09/25/19 18:12 143/53 09/25/19 18:00 20 143/53 Endotracheal Tube 100 09/25/19 18:00 66 20 143/53 (83) 100 09/25/19 17:30 63 20 108/45 (66) 98 09/25/19 17:08 63 20 100 09/25/19 17:00 64 20 100/43 (62) 98 09/25/19 17:00 20 100/43 Endotracheal Tube 100 09/25/19 16:30 68 20 116/46 (69) 93 Objective: General Appearance: no apparent distress, bedridden middle age chronically ill looking female on vent AC 500-20-80% PEEP 5, sedated Lines, tubes and drains: left jugular HD catheter HEENT: normocephalic, atraumatic, anicteric, trach - Shiley #7 cuffed XLT, secretions moderate amount, velasco color , thick consistency Respiratory/Chest: no accessory muscle use, few scattered rhonchi bilaterally , Cardiovascular/Chest: normal rate, regular rhythm - SR on tele Abdomen: normal bowel sounds, non tender, soft, G tube Genitourinary/Rectal: Norman Extremities: no edema Skin Exam: warm/dry, multiple tattoos all over the body Neurologic: abnormal gait, sedated Musculoskeletal: atrophy - BLE Critical Care - Subjective ROS Limited/Unobtainable: Yes Interval Events: leuk trending down, afebrile ABG stable with decreased AC paty to 20 and PEEP 6 FiO2 was down to 70 %, however desaturated with HD now on FiO2 80% and PEEP 5 sedated with Fentanyl gtt and versed prn leukocytosis trending down, remains afebrile Condition: critical IV Access: central - L jugular HD catheter EKG Rhythm: Sinus Rhythm FI02: 80 Vent Support Breath Rate: 20 Vent Support Mode: AC Vent Tidal Volume: 500 Sputum Amount: Moderate PEEP: 5.0 PIP: 25 Drips: Fentanyl gtt 300 mcg/hr Tube Feeding Amount: 40 I&O: Intake and Output 09/25/19 09/26/19 18:59 06:59 Intake Total 943.96 ml 828.54 ml Output Total 30 ml 65 ml Balance 913.96 ml 763.54 ml Intake Free Water 100 ml IV Total 363.96 ml 308.54 ml Tube Feeding 480 ml 480 ml Other 40 ml Output Urine Total 30 ml 65 ml # Bowel Movements 1 CXR: 09/25 -> Bilateral left greater than right interstitial and airspace infiltrates versus edema, large left pleural effusion persist, probably not significantly changed. Tracheostomy, left jugular temporary dialysis catheter are again demonstrated. Juve Martinez MD 09/27/19 1415: Critical Care - Asmt/Plan Assessment/Plan: Patient seen and examined with SALES AND SERVICE ASSOCIATE. Agree with above A&P as it reflects our joint deliberations. Yara Castro NP Sep 26, 2019 16:12 Juve Martinez MD Sep 27, 2019 14:15
[2019-09-26] MEDS: HydrALAZINE 50mg tab GT SCH ×2 (17:12→23:58)
[2019-09-26] MEDS: Midazolam for drip 50 MG in NS 90 ML IV PRN (18:52)
--- NOTE | 2019-09-26 19:42 | Surgery Progress Note ---
Surgery Progress Note Subjective Additional Comments more awake and alert on vent versed prn weaning vent Objective Last 24 Hour Vital Signs Date Time Temp Pulse Resp B/P (MAP) Pulse Ox O2 Delivery O2 Flow Rate FiO2 09/26/19 19:20 66 20 100 Mechanical Ventilator 70 69 20 70 09/26/19 19:00 80 20 179/122 (141) 100 09/26/19 18:52 26 Mechanical Ventilator 80 09/26/19 18:00 70 20 113/52 (72) 96 09/26/19 18:00 20 117/51 Mechanical Ventilator 80 09/26/19 17:20 Mechanical Ventilator Mechanical Ventilator 09/26/19 17:15 83 24 80 09/26/19 17:12 192/110 09/26/19 17:00 21 164/76 Mechanical Ventilator 80 09/26/19 17:00 82 23 164/76 (105) 98 09/26/19 16:45 93 25 173/101 (125) 97 09/26/19 16:37 91 33 215/91 (132) 96 09/26/19 16:30 89 27 192/110 (137) 94 09/26/19 16:15 87 33 168/73 (104) 97 09/26/19 16:00 99.6 75 19 145/105 (118) 96 09/26/19 16:00 78 09/26/19 16:00 24 145/105 Mechanical Ventilator 80 09/26/19 16:00 Mechanical Ventilator Mechanical Ventilator 09/26/19 15:45 77 21 156/62 (93) 96 09/26/19 15:35 21 143/92 Mechanical Ventilator 80 09/26/19 15:30 74 23 147/64 (91) 97 09/26/19 15:15 75 20 143/92 (109) 96 09/26/19 15:00 80 21 158/62 (94) 97 09/26/19 14:43 81 22 80 09/26/19 14:30 84 21 163/66 (98) 97 09/26/19 14:00 80 09/26/19 14:00 22 160/62 Mechanical Ventilator 70 09/26/19 14:00 82 26 174/67 (102) 96 09/26/19 13:30 72 21 133/55 (81) 91 09/26/19 13:06 76 160/62 09/26/19 13:00 21 175/69 Mechanical Ventilator 70 09/26/19 13:00 78 22 160/62 (94) 97 09/26/19 12:30 79 18 182/72 (108) 100 09/26/19 12:25 75 24 100 Mechanical Ventilator 70 78 21 70 09/26/19 12:23 164/71 09/26/19 12:00 98.4 74 23 175/69 (104) 99 09/26/19 12:00 21 155/67 Mechanical Ventilator 70 09/26/19 12:00 70 09/26/19 12:00 78 09/26/19 12:00 Mechanical Ventilator Mechanical Ventilator 09/26/19 11:30 76 22 184/70 (108) 99 09/26/19 11:14 70 09/26/19 11:14 72 24 70 09/26/19 11:00 21 168/52 Mechanical Ventilator 70 09/26/19 11:00 71 20 155/67 (96) 100 09/26/19 10:30 69 20 121/56 (77) 98 09/26/19 10:00 78 21 168/52 (90) 96 09/26/19 10:00 21 168/52 Mechanical Ventilator 80 09/26/19 09:30 82 25 169/67 (101) 97 09/26/19 09:00 75 22 153/127 (136) 96 09/26/19 09:00 21 143/97 Mechanical Ventilator 80 09/26/19 08:59 84 142/63 09/26/19 08:51 77 23 80 09/26/19 08:30 75 21 149/64 (92) 100 09/26/19 08:00 74 09/26/19 08:00 80 09/26/19 08:00 21 156/64 Mechanical Ventilator 100 09/26/19 08:00 98.4 73 24 156/64 (94) 100 09/26/19 08:00 Mechanical Ventilator Mechanical Ventilator 09/26/19 07:30 72 19 162/65 (97) 100 09/26/19 07:15 75 20 178/68 (104) 100 09/26/19 07:00 60 20 140/54 (82) 97 09/26/19 07:00 20 140/54 Mechanical Ventilator 100 09/26/19 06:54 61 20 100 Mechanical Ventilator 100 60 22 100 09/26/19 06:45 60 20 127/51 (76) 96 09/26/19 06:30 63 20 125/53 (77) 97 09/26/19 06:00 21 128/51 Mechanical Ventilator 100 09/26/19 06:00 70 21 128/51 (76) 97 09/26/19 05:45 76 21 151/59 (89) 97 09/26/19 05:33 23 142/56 Mechanical Ventilator 100 09/26/19 05:31 142/56 09/26/19 05:31 66 142/56 09/26/19 05:30 67 20 133/57 (82) 98 09/26/19 05:00 76 20 151/61 (91) 100 09/26/19 04:46 80 22 100 09/26/19 04:30 79 21 164/64 (97) 99 09/26/19 04:15 79 20 177/89 (118) 99 09/26/19 04:00 Mechanical Ventilator Mechanical Ventilator 09/26/19 04:00 21 177/89 Mechanical Ventilator 100 09/26/19 04:00 99.0 82 21 169/71 (103) 98 09/26/19 04:00 100 09/26/19 03:30 77 21 161/69 (99) 99 09/26/19 03:15 77 23 154/75 (101) 99 09/26/19 03:10 70 21 100 09/26/19 03:07 79 09/26/19 03:00 80 21 165/81 (109) 99 09/26/19 03:00 22 154/75 Mechanical Ventilator 100 09/26/19 02:30 79 20 161/66 (97) 99 09/26/19 02:15 72 20 133/58 (83) 98 09/26/19 02:00 82 25 171/71 (104) 98 09/26/19 02:00 21 133/58 Mechanical Ventilator 100 09/26/19 01:30 83 23 170/71 (104) 100 09/26/19 01:30 76 22 100 Mechanical Ventilator 100 80 24 100 09/26/19 01:15 83 23 163/69 (100) 99 09/26/19 01:00 21 163/69 Mechanical Ventilator 100 09/26/19 01:00 78 21 157/62 (93) 99 09/26/19 00:30 75 21 153/63 (93) 99 09/26/19 00:15 71 21 137/56 (83) 100 09/26/19 00:00 100.1 65 20 115/56 (75) 99 09/26/19 00:00 Mechanical Ventilator Mechanical Ventilator 09/26/19 00:00 21 137/56 Mechanical Ventilator 100 09/25/19 23:45 65 20 126/52 (76) 99 09/25/19 23:30 65 20 125/94 (104) 99 09/25/19 23:30 65 20 100 09/25/19 23:18 144/57 09/25/19 23:09 65 09/25/19 23:00 70 20 144/57 (86) 99 09/25/19 23:00 20 144/57 100 09/25/19 22:45 64 20 112/48 (69) 97 09/25/19 22:30 64 20 113/52 (72) 98 09/25/19 22:15 65 20 112/48 (69) 97 09/25/19 22:00 70 20 114/48 (70) 98 09/25/19 22:00 20 114/48 Mechanical Ventilator 100 09/25/19 21:45 80 22 132/64 (86) 97 09/25/19 21:30 84 27 171/73 (105) 98 09/25/19 21:23 96 165/96 09/25/19 21:23 96 165/96 09/25/19 21:23 89 24 100 09/25/19 21:15 88 22 165/96 (119) 97 09/25/19 21:00 85 22 172/70 (104) 97 09/25/19 21:00 22 165/96 Mechanical Ventilator 100 09/25/19 20:45 90 24 174/83 (113) 98 09/25/19 20:30 89 19 178/76 (110) 97 09/25/19 20:30 24 170/67 Mechanical Ventilator 100 09/25/19 20:15 89 21 170/67 (101) 98 09/25/19 20:03 91 20 174/71 (105) 97 09/25/19 20:00 98.7 89 23 190/70 (110) 97 09/25/19 20:00 Mechanical Ventilator Mechanical Ventilator 09/25/19 20:00 100 09/25/19 19:45 95 19 180/74 (109) 99 09/25/19 19:44 23 190/70 Mechanical Ventilator 100 I&O Intake and Output 09/25/19 09/26/19 19:00 07:00 Intake Total 943.96 ml 832.54 ml Output Total 30 ml 65 ml Balance 913.96 ml 767.54 ml Intake Free Water 100 ml IV Total 363.96 ml 312.54 ml Tube Feeding 480 ml 480 ml Other 40 ml Output Urine Total 30 ml 65 ml # Bowel Movements 3 Dressing: saturated Cardiovascular: RSR Respiratory: decreased breath sounds Abdomen: non-tender, present bowel sounds Extremities: no tenderness, no cyanosis Laboratory Tests Test 09/26/19 02:55 09/26/19 07:52 White Blood Count 11.9 K/UL (4.8-10.8) H Red Blood Count 2.45 M/UL (4.20-5.40) L Hemoglobin 7.9 G/DL (12.0-16.0) L Hematocrit 24.7 % (37.0-47.0) L Mean Corpuscular Volume 101 FL (80-99) H Mean Corpuscular Hemoglobin 32.2 PG (27.0-31.0) H Mean Corpuscular Hemoglobin Concent 31.9 G/DL (32.0-36.0) L Red Cell Distribution Width 16.5 % (11.6-14.8) H Platelet Count 276 K/UL (150-450) Mean Platelet Volume 6.3 FL (6.5-10.1) L Neutrophils (%) (Auto) % (45.0-75.0) Lymphocytes (%) (Auto) % (20.0-45.0) Monocytes (%) (Auto) % (1.0-10.0) Eosinophils (%) (Auto) % (0.0-3.0) Basophils (%) (Auto) % (0.0-2.0) Sodium Level 141 MMOL/L (136-145) Potassium Level 3.8 MMOL/L (3.5-5.1) Chloride Level 102 MMOL/L (98-107) Carbon Dioxide Level 29 MMOL/L (21-32) Anion Gap 11 mmol/L (5-15) Blood Urea Nitrogen 95 mg/dL (7-18) H Creatinine 2.8 MG/DL (0.55-1.30) H Estimat Glomerular Filtration Rate 18.1 mL/min (>60) Glucose Level 97 MG/DL (74-106) Calcium Level 9.3 MG/DL (8.5-10.1) Phosphorus Level 4.0 MG/DL (2.5-4.9) Magnesium Level 2.9 MG/DL (1.8-2.4) H Total Bilirubin 0.3 MG/DL (0.2-1.0) Aspartate Amino Transf (AST/SGOT) 20 U/L (15-37) Alanine Aminotransferase (ALT/SGPT) 7 U/L (12-78) L Alkaline Phosphatase 164 U/L (46-116) H Total Protein 6.9 G/DL (6.4-8.2) Albumin 2.0 G/DL (3.4-5.0) L Globulin 4.9 g/dL Albumin/Globulin Ratio 0.4 (1.0-2.7) L Arterial Blood pH 7.411 (7.350-7.450) Arterial Blood Partial Pressure CO2 41.3 mmHg (35.0-45.0) Arterial Blood Partial Pressure O2 110.1 mmHg (75.0-100.0) H Arterial Blood HCO3 25.7 mmol/L (22.0-26.0) Arterial Blood Oxygen Saturation 98.0 % (95-100) Arterial Blood Base Excess 0.9 (-2-2) Rojas Test Positive Plan Problems: (1) Anemia (2) Proteinuria (3) UTI (urinary tract infection) (4) ARF (acute renal failure) (5) ACS (acute coronary syndrome) (6) Respiratory failure, acute and chronic (7) HCAP (healthcare-associated pneumonia) (8) Abrasion of lip, initial encounter (9) COPD with exacerbation (10) Hypokalemia (11) Sepsis Assessment & Plan: Leukocytosis, anemia, abnormal labs. Renal insufficiency potentially dehydrated Abnormal LFTs alk phos elevated Urine noted significant bacteria likely UTI etiology Wound stable still requiring local care IV antibiotics per infectious disease Discussed with service writer advisor Dr. Berkowitz air mattress turn q2h nutritional tf will follow with recs thank you CT noted pending VQ scan - noted poor study low prob PE work respiratory increasing needs sedation weaning vent settings 80% peep 10 now comfortable Hd line in receiving HD (12) Chronic respiratory failure (13) Ascites (14) Bacteremia (15) Hypernatremia (16) Pleural effusion (17) Pacemaker (18) Aortic dissection, thoracic (19) Tracheostomy in place Assessment & Plan: trach stable no bleeding currently likely tongue etiology of mild oozing currently hemostatic without trauma (20) Feeding by G-tube Assessment & Plan: okay to resume tube feeds via g tube patent and functional dressings okay DAILY ESTIMATED NEEDS: Needs based on Pulmonary, wound 49kg 30-35 kcals/kg [id number] total kcals 1.25-2 g protein/kg 61-98 g total protein Fluid per MD NUTRITION DIAGNOSIS: * Swallowing difficulty R/T dysphagia, respiratory status as evidenced by vent dep via T-collar, GT Dep. (CURRENT TF: Nepro @45ml/hr x 24 hrs) ENTERAL NUTRITION RECOMMENDATIONS: Nepro @ 40ml/hr x 24 hrs to provide 960ml, 1728kcal, 78g prot, 698ml free water * Rec LOWER current rate to 40ml/hr for 24 hrs run. * Water flush of 100ml q 6 hrs per orders * HOB over 30 degrees ADDITIONAL RECOMMENDATIONS: * Per SNF: HT=63", [id number] -> rec calibrated bedscale wt * Pt on Nepro INSPECTOR CLIP ON SUNGLASSES, possible h/o electrolyte imbalance -> monitor lytes closely (K low at this time) * [employer] eval for oral grat if appropriate * F/up w/ WC eval-> add FRANKLIN in 4oz H20 BID via GT (21) JAVIER (acute kidney injury) (22) Elevated alkaline phosphatase level Assessment & Plan: noted on labs trend US ordered will follow with recs thank you (23) Acute encephalopathy (24) GT CLOGGED (25) Sacral decubitus ulcer, stage IV Assessment & Plan: Pt presented on admission with Full thickness stage 4 Sacral Pressure injury which extends into R gluteal cheek. Base of wound is granular with bone exposure at base of sacrococcygeal.(L)10.5cm x (W06.5cm x (D) 2.8cm , undermining 11-3 by 3.6cm @12 o'clock. small amt serosanguineous exudate noted . [place] epithelial along edges bordered by darker skin tone without erythema. Resolving Pressure injury L ischium. Base of wound is 95% pink epithelial ,5% noni at center base of wound. No exudate noted. Both heels are boggy with non-Blanching erythema. Tx.plan: Cleanse Sacral wound with Saline. Loosely pack with Hydrogel impregnated Kerlix. Apply Moisture Barrier Periwound. Cover with Optifoam drsg Daily and prn. Apply Moisture Barrier paste to L Ischium. Cover with Optifoam drsg. Changee very 3 days and prn. Apply Cavilon Skin Barrier to both heels. Cover each heel with Optifoam drsgs. Change every 7 days and prn. Reposition at least every 2hours or as tolerated. Off-load heels with pillow. APM/JENNIFER Mattress overlay. Lane Saavedra Sep 26, 2019 19:42
[2019-09-26] MEDS: Sertraline 100mg tab GT SCH (21:15)
[2019-09-26] MEDS: Dyna-Hex 2% Top Sol 2oz TOPIC SCH (21:15)
[2019-09-27] VITALS (84 sets, daily range): BP systolic 108–207; BP diastolic 38–130
[2019-09-27] MEDS: Acetylcysteine 20% Soln 4ml HHN SCH ×4 (00:48→19:38)
[2019-09-27] MEDS: Albuterol/Ipratropium 3ml neb HHN SCH ×4 (00:48→19:37)
[2019-09-27 04:37] LABS: HEMATOCRIT 26.2 % (37.0-47.0); HEMOGLOBIN 8.6 G/DL (12.0-16.0); MEAN CORPUSCULAR VOLUME 97 FL (80-99); PLATELET COUNT 326 K/UL (150-450); RED BLOOD COUNT 2.69 M/UL (4.20-5.40); RED CELL DISTRIBUTION WIDTH 15.8 % (11.6-14.8)
[2019-09-27 04:51] LABS: INR 1.2 (0.9-1.1)
[2019-09-27 05:00] LABS: ALANINE AMINOTRANSFERASE 9 U/L (12-78); ALBUMIN 2.2 G/DL (3.4-5.0); ALBUMIN/GLOBULIN RATIO 0.4 (1.0-2.7); ALKALINE PHOSPHATASE 177 U/L (46-116); ANION GAP 10 mmol/L (5-15); ASPARTATE AMINO TRANSFERASE 25 U/L (15-37); BILIRUBIN,TOTAL 0.3 MG/DL (0.2-1.0); BLOOD UREA NITROGEN 59 mg/dL (7-18); CALCIUM 9.1 MG/DL (8.5-10.1); CARBON DIOXIDE 31 MMOL/L (21-32); CHLORIDE 96 MMOL/L (98-107); CREATININE 2.2 MG/DL (0.55-1.30); POTASSIUM 3.3 MMOL/L (3.5-5.1); SODIUM 137 MMOL/L (136-145)
[2019-09-27 05:26] LABS: PHOSPHORUS 3.3 MG/DL (2.5-4.9)
[2019-09-27] MEDS: dilTIAZem HCl 30mg tab GT SCH ×3 (06:10→21:42)
[2019-09-27] MEDS: HydrALAZINE 50mg tab GT SCH ×3 (06:10→18:00)
--- NOTE | 2019-09-27 06:56 | General Progress Note ---
Assessment/Plan Assessment/Plan: Covering [facility] Assessment and Recs # Leukocytosis, now with gram positive bacteremias well as pna noted --> historically --> PPM site (pocket) infection (redness and pain, bacteremia) and likely pocket abscess - no vegetation seen on ABBIE --> is s'p pm removal and also pocket infection is better --> per cards recs in re to tach/davis --> wbc 15-->19-->17-->15-->13->12-->13-->12>13-->18 --> ABX cefepime/levaquin--> vanc/angelo --> ID recs are noted # Anemia of chronic disease due to underlying chronic medical issues, multifactorial --> Anemia workup has been reviewed, cw acd --> No evidence of hemolysis is noted, peripheral smear has been reviewed. --> Hgb goal >7. Transfuse prn. --> Epogen started --> Medications have been reviewed --> low threshold for gi evaluation in case has occult + --> hgb 7.1-->7.8-->8.9->9.2-->8.5-->9.7-->10-->8.8-->9.6-->8.7->8.6 # Thrombocytois is likely reactive process, is s/p infection --> plt trend 610k-->706k --> p smear reviewed # Acute hypoxic respiratory failure s/p intubation 11/23- ?ARDS --> on vent/trach # Gram positive bacteremia- real bacteremia- 2ry to above and probable PNA --> per id care # JAVIER initially >2 --> now improved with D5w # Dysphagia s/p peg # Thoracic aortic dissection s/p repair early 2018 # Psychiatric history on ativan/haldol # [place] resident # Dvt ppx heparin sq The timing of this note does not necessarily reflect the time of the patient was seen. Greatly appreciate consultation. Subjective HEENT: Denies: no symptoms, eye pain, blurred vision, tearing, double vision, ear pain, ear discharge, nose pain, nose congestion, throat pain, throat swelling, mouth pain, mouth swelling, other Cardiovascular: Denies: no symptoms, chest pain, edema, irregular heart rate, lightheadedness, palpitations, syncope, other Respiratory: Denies: no symptoms, cough, orthopnea, shortness of breath, SOB with excertion, SOB at rest, sputum, stridor, wheezing, other Gastrointestinal/Abdominal: Denies: no symptoms, abdomen distended, abdominal pain, black stools, tarry stools, blood in stool, constipated, diarrhea, difficulty swallowing, nausea, poor appetite, poor fluid intake, rectal bleeding , vomiting, other Genitourinary: Denies: no symptoms, burning, discharge, frequency, flank pain, hematuria, incontinence, pain, urgency, other Neurologic/Psychiatric: Denies: no symptoms, anxiety, depressed, emotional problems, headache, numbness, paresthesia, pre-existing deficit, seizure, tingling, tremors, weakness, other Endocrine: Denies: no symptoms, excessive sweating, flushing, intolerance to cold, intolerance to heat, increased hunger, increased thirst, increased urine, unexplained weight gain, unexplained weight loss, other Allergies: Coded Allergies: No Known Allergies (Unverified , 10/10/17) Subjective 09/16 on vent now, consulted in am pulm, on vent setting, labs noted, hep sq 09/17 meds noted, cbc noted, labs noted, no bleeding 09/18 is to undergo potential v/q scan given abg, labs noted, resless, on ativan, to get haldol today, roman rn 09/19 remains agitated, covering, with sacral wound seeping, likely cause of anemia, roman rn 09/26 restless, remains agitated, gtube ripped, eval with rn, and almai consulted Objective Last 24 Hour Vital Signs Date Time Temp Pulse Resp B/P (MAP) Pulse Ox O2 Delivery O2 Flow Rate FiO2 09/27/19 06:15 83 20 141/48 (79) 90 09/27/19 06:10 140/48 09/27/19 06:10 84 140/48 09/27/19 06:00 86 20 140/48 (78) 91 09/27/19 06:00 20 Mechanical Ventilator 100 09/27/19 06:00 20 140/48 Mechanical Ventilator 100 09/27/19 05:45 83 23 137/43 (74) 90 09/27/19 05:30 86 22 137/50 (79) 90 09/27/19 05:15 87 22 129/55 (79) 90 09/27/19 05:00 94 28 143/57 (85) 93 09/27/19 05:00 28 Mechanical Ventilator 100 09/27/19 05:00 28 143/57 Mechanical Ventilator 100 09/27/19 04:58 107 34 100 09/27/19 04:45 102 25 177/67 (103) 92 09/27/19 04:43 105 36 179/60 (99) 92 09/27/19 04:15 106 28 200/80 (120) 89 09/27/19 04:13 100 09/27/19 04:00 100 09/27/19 04:00 99.3 99 27 192/74 (113) 85 09/27/19 04:00 Mechanical Ventilator Mechanical Ventilator 09/27/19 04:00 24 Mechanical Ventilator 100 09/27/19 04:00 20 192/74 Mechanical Ventilator 100 09/27/19 03:55 94 26 201/79 (119) 87 09/27/19 03:45 98 37 207/80 (122) 84 09/27/19 03:45 24 Mechanical Ventilator 80 09/27/19 03:30 108 30 207/82 (123) 87 09/27/19 03:23 104 09/27/19 03:08 86 24 80 09/27/19 03:00 24 Mechanical Ventilator 80 09/27/19 03:00 24 137/56 Mechanical Ventilator 80 09/27/19 02:45 83 22 137/56 (83) 93 09/27/19 02:30 84 22 151/54 (86) 92 09/27/19 02:15 87 20 163/64 (97) 92 09/27/19 02:00 88 24 154/58 (90) 94 09/27/19 02:00 24 Mechanical Ventilator 80 09/27/19 02:00 24 154/58 Mechanical Ventilator 80 09/27/19 01:45 84 23 138/55 (82) 91 09/27/19 01:30 86 19 172/67 (102) 93 09/27/19 01:15 81 20 164/124 (137) 93 09/27/19 01:00 20 Mechanical Ventilator 80 09/27/19 01:00 20 151/58 Mechanical Ventilator 80 09/27/19 01:00 81 18 151/58 (89) 97 09/27/19 00:55 77 20 100 Mechanical Ventilator 80 79 20 80 09/27/19 00:45 76 20 133/61 (85) 92 09/27/19 00:30 79 20 148/61 (90) 92 09/27/19 00:15 79 21 154/52 (86) 92 09/27/19 00:00 20 Mechanical Ventilator 80 09/27/19 00:00 Mechanical Ventilator Mechanical Ventilator 09/27/19 00:00 98.4 73 20 130/53 (78) 89 09/26/19 23:59 20 124/52 Mechanical Ventilator 80 09/26/19 23:58 124/52 09/26/19 23:45 73 20 124/52 (76) 92 09/26/19 23:30 76 21 128/54 (78) 94 09/26/19 23:01 77 09/26/19 23:00 79 24 151/56 (87) 95 09/26/19 23:00 24 Mechanical Ventilator 80 09/26/19 23:00 24 151/56 Mechanical Ventilator 80 09/26/19 22:53 81 27 80 09/26/19 22:45 22 Mechanical Ventilator 80 09/26/19 22:45 83 21 163/62 (95) 95 09/26/19 22:30 76 22 125/55 (78) 91 09/26/19 22:00 22 Mechanical Ventilator 80 09/26/19 22:00 22 152/62 Mechanical Ventilator 80 09/26/19 22:00 82 24 141/64 (89) 96 09/26/19 21:45 81 22 135/50 (78) 94 09/26/19 21:15 82 20 155/50 (85) 94 09/26/19 21:15 88 138/60 09/26/19 21:15 88 138/60 09/26/19 21:00 86 21 138/60 (86) 97 09/26/19 21:00 22 Mechanical Ventilator 80 09/26/19 21:00 22 138/60 Mechanical Ventilator 80 09/26/19 20:48 88 20 80 09/26/19 20:45 88 21 139/56 (83) 96 09/26/19 20:30 87 24 151/53 (85) 95 09/26/19 20:15 91 19 148/55 (86) 96 09/26/19 20:00 98.8 94 26 153/63 (93) 96 09/26/19 20:00 Mechanical Ventilator Mechanical Ventilator 09/26/19 20:00 24 Mechanical Ventilator 80 09/26/19 20:00 24 153/63 Mechanical Ventilator 80 09/26/19 20:00 80 09/26/19 19:45 97 26 175/73 (107) 97 09/26/19 19:37 101 30 187/83 (117) 94 09/26/19 19:30 24 Mechanical Ventilator 80 09/26/19 19:30 98 25 206/90 (128) 95 09/26/19 19:20 66 20 100 Mechanical Ventilator 80 69 20 80 09/26/19 19:13 86 09/26/19 19:00 20 Mechanical Ventilator 80 09/26/19 19:00 30 187/83 Mechanical Ventilator 80 09/26/19 19:00 80 20 179/122 (141) 100 09/26/19 18:52 26 Mechanical Ventilator 80 09/26/19 18:00 70 20 113/52 (72) 96 09/26/19 18:00 20 117/51 Mechanical Ventilator 80 09/26/19 17:20 Mechanical Ventilator Mechanical Ventilator 09/26/19 17:15 83 24 80 09/26/19 17:12 192/110 09/26/19 17:00 21 164/76 Mechanical Ventilator 80 09/26/19 17:00 82 23 164/76 (105) 98 09/26/19 16:45 93 25 173/101 (125) 97 09/26/19 16:37 91 33 215/91 (132) 96 09/26/19 16:30 89 27 192/110 (137) 94 09/26/19 16:15 87 33 168/73 (104) 97 09/26/19 16:00 99.6 75 19 145/105 (118) 96 09/26/19 16:00 78 09/26/19 16:00 24 145/105 Mechanical Ventilator 80 09/26/19 16:00 Mechanical Ventilator Mechanical Ventilator 09/26/19 15:45 77 21 156/62 (93) 96 09/26/19 15:35 21 143/92 Mechanical Ventilator 80 09/26/19 15:30 74 23 147/64 (91) 97 09/26/19 15:15 75 20 143/92 (109) 96 09/26/19 15:00 80 21 158/62 (94) 97 09/26/19 14:43 81 22 80 09/26/19 14:30 84 21 163/66 (98) 97 09/26/19 14:00 80 09/26/19 14:00 22 160/62 Mechanical Ventilator 70 09/26/19 14:00 82 26 174/67 (102) 96 09/26/19 13:30 72 21 133/55 (81) 91 09/26/19 13:06 76 160/62 09/26/19 13:00 21 175/69 Mechanical Ventilator 70 09/26/19 13:00 78 22 160/62 (94) 97 09/26/19 12:30 79 18 182/72 (108) 100 09/26/19 12:25 75 24 100 Mechanical Ventilator 70 78 21 70 09/26/19 12:23 164/71 09/26/19 12:00 98.4 74 23 175/69 (104) 99 09/26/19 12:00 21 155/67 Mechanical Ventilator 70 09/26/19 12:00 70 09/26/19 12:00 78 09/26/19 12:00 Mechanical Ventilator Mechanical Ventilator 09/26/19 11:30 76 22 184/70 (108) 99 09/26/19 11:14 70 09/26/19 11:14 72 24 70 09/26/19 11:00 21 168/52 Mechanical Ventilator 70 09/26/19 11:00 71 20 155/67 (96) 100 09/26/19 10:30 69 20 121/56 (77) 98 09/26/19 10:00 78 21 168/52 (90) 96 09/26/19 10:00 21 168/52 Mechanical Ventilator 80 09/26/19 09:30 82 25 169/67 (101) 97 09/26/19 09:00 75 22 153/127 (136) 96 09/26/19 09:00 21 143/97 Mechanical Ventilator 80 09/26/19 08:59 84 142/63 09/26/19 08:51 77 23 80 09/26/19 08:30 75 21 149/64 (92) 100 09/26/19 08:00 74 09/26/19 08:00 80 09/26/19 08:00 21 156/64 Mechanical Ventilator 100 09/26/19 08:00 98.4 73 24 156/64 (94) 100 09/26/19 08:00 Mechanical Ventilator Mechanical Ventilator 09/26/19 07:30 72 19 162/65 (97) 100 09/26/19 07:15 75 20 178/68 (104) 100 09/26/19 07:00 60 20 140/54 (82) 97 09/26/19 07:00 20 140/54 Mechanical Ventilator 100 Intake and Output 09/26/19 09/27/19 19:00 07:00 Intake Total 850.2666 ml 604.75 ml Output Total 2055 ml 65 ml Balance -1204.7334 ml 539.75 ml IV Total 370.2666 ml 384.75 ml Tube Feeding 480 ml 160 ml Other 60 ml Output Urine Total 55 ml 65 ml Hemodialysis UF 2000 ml # Bowel Movements 3 Laboratory Tests 09/26/19 07:52: Arterial Blood pH 7.411, Arterial Blood Partial Pressure CO2 41.3, Arterial Blood Partial Pressure O2 110.1H, Arterial Blood HCO3 25.7, Arterial Blood Oxygen Saturation 98.0, Arterial Blood Base Excess 0.9, Rojas Test Positive 09/27/19 02:50: White Blood Count 18.0#H, Red Blood Count 2.69L, Hemoglobin 8.6L, Hematocrit 26.2L, Mean Corpuscular Volume 97, Mean Corpuscular Hemoglobin 31.9H, Mean Corpuscular Hemoglobin Concent 32.9, Red Cell Distribution Width 15.8H, Platelet Count 326, Mean Platelet Volume 6.1L, Neutrophils (%) (Auto) , Lymphocytes (%) (Auto) , Monocytes (%) (Auto) , Eosinophils (%) (Auto) , Basophils (%) (Auto) , Neutrophils % (Manual) [Pending], Lymphocytes % (Manual) [Pending], Platelet Estimate [Pending], Platelet Morphology [Pending], Prothrombin Time 12.8H, Prothromb Time International Ratio 1.2H, Sodium Level 137, Potassium Level 3.3L, Chloride Level 96L, Carbon Dioxide Level 31, Anion Gap 10, Blood Urea Nitrogen 59H, Creatinine 2.2H, Estimat Glomerular Filtration Rate 23.9, Glucose Level 89, Calcium Level 9.1, Phosphorus Level 3.3, Magnesium Level 2.4, Total Bilirubin 0.3, Aspartate Amino Transf (AST/SGOT) 25, Alanine Aminotransferase (ALT/SGPT) 9L, Alkaline Phosphatase 177H, C-Reactive Protein, Quantitative 8.7H, Pro-B-Type Natriuretic Peptide > 22120C, Total Protein 7.4, Albumin 2.2L, Globulin 5.2, Albumin/Globulin Ratio 0.4L, Random Vancomycin Level 15.4 Height (Feet): 5 Height (Inches): 5.00 Weight (Pounds): 133 Objective Physical Exam: Vitals: reviewed General: NAD HEENT: nc, at Neck: supple ++tracn/vent Chest: clear breath sounds bilaterally Cardiovascular: RRR, no s3, s4 Abdomen: soft, nontender, nd +gtube Extremities: no cce, normal range of motion Neuro: alert Evan Muhammad MD Sep 27, 2019 06:56
--- NOTE | 2019-09-27 07:56 | Infectious Diseases Prog Note ---
Assessment/Plan 49yo F with: Acute hypoxic resp failure: Now on vent, worsening, FiO2 100% Pneumonia, COVID19 neg x3 - worsening 09/26 CXR: Worsening R perihilar opacity 09/24 CXR: Previously demonstrated right lateral basilar lucency is no longer evident, was presumably a skin fold artifact. Bilateral infiltrates and left pleural effusion are probably unchanged allowing for slight differences in technique. 09/22 Resp cx + MDR PsA (S-gent; I-colistin; R-levofloxacin, Zosyn, angelo) 09/22 BCx NTD 09/22 CXR: worsening BL pna 09/22 UA w/ persistent pyuria, now on HD, UCx +VRE, most likely colonizer as improving wo tx for this 09/19 V/Q scan, low probability of PE 09/18 Rapid COVID PCR neg 09/18 CT chest: Markedly suboptimal examination due to lack of IV contrast material. Bilateral pleural effusions, right greater than left, with bilateral lower lobe consolidation or volume loss. Ground glass densities in the upper lobes bilaterally. This is not specific. Tracheostomy. Increased superior mediastinal density. Stability of adenopathy cannot be excluded. Atherosclerotic change. Gastrostomy. Ascites. Left renal stent with left hydronephrosis and renal atrophy. 09/17 Chest US: Trace right and small left pleural effusions. No safe window identified for bedside thoracentesis. Note that the majority of the left pleural effusion is subpulmonic. 09/16 CXR: Worsening of right lung infiltrates and right effusion. V. duplex: NO DVT D-dimer elevated 09/15 Rapid COVID PCR neg 09/15 Sp cx ESBL P. mirablis 09/14 CXR: Bilateral airspace opacities, preferentially involving the right lung, consistent with multifocal infiltrate. Trace bilateral pleural effusions. No pneumothorax. Rapid COVID PCR neg GPC bacteremia, real vs contaminant; does have hx of infected PPM- could be a possibility- ro endocarditis 09/14 Bcx 03/19 S. epidermis; 09/15 Bcx NTD 2d echo: no vegetations seen UTI 09/14 u/a wbc tnct, nit neg, leuk +3; ucx >100k MDR P. stuarti (S Ceftriaxone, Meropenem) 09/22 UA w/ ongoing pyuria, unchanged Unstageable sacral ulceration Afebrile Leukocytosis, mild; fluctuates bt 12-13 JAVIER on CKD --> now on HD Renal US: Limited exam due to abdominal ascites and shadowing from bowel gas. CT recommended for more sensitive evaluation. Moderate right hydronephrosis. Increased renal parenchymal echogenicity suggesting intrinsic/ medical renal disease. Question indwelling left ureteral stent versus artifact. Bladder not visualized. 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 epi-11/2018, sp > 6weeks IV vancomycin 11/27 SP ABBIE: no evidence for vegetation on any of the valves 11/26/18 SP PPM removal: OR findings:The fibrous capsule enclosing the generator was then opened and there was a [id number] amount of yellowish fluid drainage. The generator was then removed.Atrial and ventricular leads were detached. The necrotic tissue of the pocket was then removed and the pocket was flushed with an antibiotic solution. Capsule, wound tissue and lead tip cx: Neg 2d echo: no vegetation seen US chest: 4.6 x 3.4 x 0.9 cm hypoechoic/anechoic area overlying left chest pacemaker power pack. This could represent either a discrete fluid collection or a focal area of very edematous tissue. Infected fluid pocket also possible. 11/18 Bcx 3/4 S. epi; 11/20 Bcx neg; 11/24 Bcx Neg; 11/27 Bcx Neg Hx of PNA 11/2019? sp cx PsA (arnett S), ABC (I Ceftriaxone; otherwise negative) Sp cx MRSA, ABC (I Ceftriaxone; otherwise S) PMH: Afib HTN Dysphagia sp GT Aortic dissection s/p repair 2017, S/p PPM Parkinson's Disease Schizophrenia Anxiety COPD Chronic resp failure s/p trach Hx of tracheal bleeding [place] ([facility]) Plan: Start gentamicin per pharmacy, given carbapenem-resistant PsA in resp cx in setting of worsening pna Cont meropenem #11 Continue vancomycin #12/14 given prior Staph epi in BCx, though possible contaminant also CXR today - worsening pna BCx x2 today Asked Pharmacy for [facility] approval for MDR PsA, pending approval, non- formulary form signed D/w micro about sending MDR PsA out for further sensi to [facility] and [facility], [facility] lab order signed - will have to f/u with micro lab to make sure this is done ([id number]) Aggressive volume removal as tolerated by HD, BNP >35,000 Trend leukocytosis 09/25 SP angelo #10 8/ SP Cefepime #3, Levaquin #3 -Monitor CBC/CMP, temperatures -ICU/ trach/ peg care -Aspiration precautions D/w RN and pharmacy and micro lab at length Thank you for this consultation. Will continue to follow along with you. Subjective Allergies: Coded Allergies: No Known Allergies (Unverified , 10/10/17) AF Vent settings up to FiO2 100% WBC up to 18 Objective Last 24 Hour Vital Signs Date Time Temp Pulse Resp B/P (MAP) Pulse Ox O2 Delivery O2 Flow Rate FiO2 09/27/19 07:21 78 20 93 Mechanical Ventilator 100 71 20 100 09/27/19 07:15 72 20 108/44 (65) 94 09/27/19 07:00 78 22 123/54 (77) 88 09/27/19 07:00 22 Mechanical Ventilator 100 09/27/19 07:00 22 123/54 100 09/27/19 06:45 81 22 128/45 (72) 87 09/27/19 06:30 82 24 139/53 (81) 89 09/27/19 06:15 83 20 141/48 (79) 90 09/27/19 06:10 140/48 09/27/19 06:10 84 140/48 09/27/19 06:00 86 20 140/48 (78) 91 09/27/19 06:00 20 Mechanical Ventilator 100 09/27/19 06:00 20 140/48 Mechanical Ventilator 100 09/27/19 05:45 83 23 137/43 (74) 90 09/27/19 05:30 86 22 137/50 (79) 90 09/27/19 05:15 87 22 129/55 (79) 90 09/27/19 05:00 94 28 143/57 (85) 93 09/27/19 05:00 28 Mechanical Ventilator 100 09/27/19 05:00 28 143/57 Mechanical Ventilator 100 09/27/19 04:58 107 34 100 09/27/19 04:45 102 25 177/67 (103) 92 09/27/19 04:43 105 36 179/60 (99) 92 09/27/19 04:15 106 28 200/80 (120) 89 09/27/19 04:13 100 09/27/19 04:00 100 09/27/19 04:00 99.3 99 27 192/74 (113) 85 09/27/19 04:00 Mechanical Ventilator Mechanical Ventilator 09/27/19 04:00 24 Mechanical Ventilator 100 09/27/19 04:00 20 192/74 Mechanical Ventilator 100 09/27/19 03:55 94 26 201/79 (119) 87 09/27/19 03:45 98 37 207/80 (122) 84 09/27/19 03:45 24 Mechanical Ventilator 80 09/27/19 03:30 108 30 207/82 (123) 87 09/27/19 03:23 104 09/27/19 03:08 86 24 80 09/27/19 03:00 24 Mechanical Ventilator 80 09/27/19 03:00 24 137/56 Mechanical Ventilator 80 09/27/19 02:45 83 22 137/56 (83) 93 09/27/19 02:30 84 22 151/54 (86) 92 09/27/19 02:15 87 20 163/64 (97) 92 09/27/19 02:00 88 24 154/58 (90) 94 09/27/19 02:00 24 Mechanical Ventilator 80 09/27/19 02:00 24 154/58 Mechanical Ventilator 80 09/27/19 01:45 84 23 138/55 (82) 91 09/27/19 01:30 86 19 172/67 (102) 93 09/27/19 01:15 81 20 164/124 (137) 93 09/27/19 01:00 20 Mechanical Ventilator 80 09/27/19 01:00 20 151/58 Mechanical Ventilator 80 09/27/19 01:00 81 18 151/58 (89) 97 09/27/19 00:55 77 20 100 Mechanical Ventilator 80 79 20 80 09/27/19 00:45 76 20 133/61 (85) 92 09/27/19 00:30 79 20 148/61 (90) 92 09/27/19 00:15 79 21 154/52 (86) 92 09/27/19 00:00 20 Mechanical Ventilator 80 09/27/19 00:00 Mechanical Ventilator Mechanical Ventilator 09/27/19 00:00 98.4 73 20 130/53 (78) 89 09/26/19 23:59 20 124/52 Mechanical Ventilator 80 09/26/19 23:58 124/52 09/26/19 23:45 73 20 124/52 (76) 92 09/26/19 23:30 76 21 128/54 (78) 94 09/26/19 23:01 77 09/26/19 23:00 79 24 151/56 (87) 95 09/26/19 23:00 24 Mechanical Ventilator 80 09/26/19 23:00 24 151/56 Mechanical Ventilator 80 09/26/19 22:53 81 27 80 09/26/19 22:45 22 Mechanical Ventilator 80 09/26/19 22:45 83 21 163/62 (95) 95 09/26/19 22:30 76 22 125/55 (78) 91 09/26/19 22:00 22 Mechanical Ventilator 80 09/26/19 22:00 22 152/62 Mechanical Ventilator 80 09/26/19 22:00 82 24 141/64 (89) 96 09/26/19 21:45 81 22 135/50 (78) 94 09/26/19 21:15 82 20 155/50 (85) 94 09/26/19 21:15 88 138/60 09/26/19 21:15 88 138/60 09/26/19 21:00 86 21 138/60 (86) 97 09/26/19 21:00 22 Mechanical Ventilator 80 09/26/19 21:00 22 138/60 Mechanical Ventilator 80 09/26/19 20:48 88 20 80 09/26/19 20:45 88 21 139/56 (83) 96 09/26/19 20:30 87 24 151/53 (85) 95 09/26/19 20:15 91 19 148/55 (86) 96 09/26/19 20:00 98.8 94 26 153/63 (93) 96 09/26/19 20:00 Mechanical Ventilator Mechanical Ventilator 09/26/19 20:00 24 Mechanical Ventilator 80 09/26/19 20:00 24 153/63 Mechanical Ventilator 80 09/26/19 20:00 80 09/26/19 19:45 97 26 175/73 (107) 97 09/26/19 19:37 101 30 187/83 (117) 94 09/26/19 19:30 24 Mechanical Ventilator 80 09/26/19 19:30 98 25 206/90 (128) 95 09/26/19 19:20 66 20 100 Mechanical Ventilator 80 69 20 80 09/26/19 19:13 86 09/26/19 19:00 20 Mechanical Ventilator 80 09/26/19 19:00 30 187/83 Mechanical Ventilator 80 09/26/19 19:00 80 20 179/122 (141) 100 09/26/19 18:52 26 Mechanical Ventilator 80 09/26/19 18:00 70 20 113/52 (72) 96 09/26/19 18:00 20 117/51 Mechanical Ventilator 80 09/26/19 17:20 Mechanical Ventilator Mechanical Ventilator 09/26/19 17:15 83 24 80 09/26/19 17:12 192/110 09/26/19 17:00 21 164/76 Mechanical Ventilator 80 09/26/19 17:00 82 23 164/76 (105) 98 09/26/19 16:45 93 25 173/101 (125) 97 09/26/19 16:37 91 33 215/91 (132) 96 09/26/19 16:30 89 27 192/110 (137) 94 09/26/19 16:15 87 33 168/73 (104) 97 09/26/19 16:00 99.6 75 19 145/105 (118) 96 09/26/19 16:00 78 09/26/19 16:00 24 145/105 Mechanical Ventilator 80 09/26/19 16:00 Mechanical Ventilator Mechanical Ventilator 09/26/19 15:45 77 21 156/62 (93) 96 09/26/19 15:35 21 143/92 Mechanical Ventilator 80 09/26/19 15:30 74 23 147/64 (91) 97 09/26/19 15:15 75 20 143/92 (109) 96 09/26/19 15:00 80 21 158/62 (94) 97 09/26/19 14:43 81 22 80 09/26/19 14:30 84 21 163/66 (98) 97 09/26/19 14:00 80 09/26/19 14:00 22 160/62 Mechanical Ventilator 70 09/26/19 14:00 82 26 174/67 (102) 96 09/26/19 13:30 72 21 133/55 (81) 91 09/26/19 13:06 76 160/62 09/26/19 13:00 21 175/69 Mechanical Ventilator 70 09/26/19 13:00 78 22 160/62 (94) 97 09/26/19 12:30 79 18 182/72 (108) 100 09/26/19 12:25 75 24 100 Mechanical Ventilator 70 78 21 70 09/26/19 12:23 164/71 09/26/19 12:00 98.4 74 23 175/69 (104) 99 09/26/19 12:00 21 155/67 Mechanical Ventilator 70 09/26/19 12:00 70 09/26/19 12:00 78 09/26/19 12:00 Mechanical Ventilator Mechanical Ventilator 09/26/19 11:30 76 22 184/70 (108) 99 09/26/19 11:14 70 09/26/19 11:14 72 24 70 09/26/19 11:00 21 168/52 Mechanical Ventilator 70 09/26/19 11:00 71 20 155/67 (96) 100 09/26/19 10:30 69 20 121/56 (77) 98 09/26/19 10:00 78 21 168/52 (90) 96 09/26/19 10:00 21 168/52 Mechanical Ventilator 80 09/26/19 09:30 82 25 169/67 (101) 97 09/26/19 09:00 75 22 153/127 (136) 96 09/26/19 09:00 21 143/97 Mechanical Ventilator 80 09/26/19 08:59 84 142/63 09/26/19 08:51 77 23 80 09/26/19 08:30 75 21 149/64 (92) 100 09/26/19 08:00 74 09/26/19 08:00 80 09/26/19 08:00 21 156/64 Mechanical Ventilator 100 09/26/19 08:00 98.4 73 24 156/64 (94) 100 09/26/19 08:00 Mechanical Ventilator Mechanical Ventilator Height (Feet): 5 Height (Inches): 5.00 Weight (Pounds): 133 Gen: Older woman, sedated on vent CV: RRR Pulm: Rhonchi BL anteriorly Abd: Soft, non-distended Ext: No c/c Neuro: Sedated Laboratory Tests Test 09/26/19 07:52 09/27/19 02:50 Arterial Blood pH 7.411 (7.350-7.450) Arterial Blood Partial Pressure CO2 41.3 mmHg (35.0-45.0) Arterial Blood Partial Pressure O2 110.1 mmHg (75.0-100.0) H Arterial Blood HCO3 25.7 mmol/L (22.0-26.0) Arterial Blood Oxygen Saturation 98.0 % (95-100) Arterial Blood Base Excess 0.9 (-2-2) Rojas Test Positive White Blood Count 18.0 K/UL (4.8-10.8) #H Red Blood Count 2.69 M/UL (4.20-5.40) L Hemoglobin 8.6 G/DL (12.0-16.0) L Hematocrit 26.2 % (37.0-47.0) L Mean Corpuscular Volume 97 FL (80-99) Mean Corpuscular Hemoglobin 31.9 PG (27.0-31.0) H Mean Corpuscular Hemoglobin Concent 32.9 G/DL (32.0-36.0) Red Cell Distribution Width 15.8 % (11.6-14.8) H Platelet Count 326 K/UL (150-450) Mean Platelet Volume 6.1 FL (6.5-10.1) L Neutrophils (%) (Auto) % (45.0-75.0) Lymphocytes (%) (Auto) % (20.0-45.0) Monocytes (%) (Auto) % (1.0-10.0) Eosinophils (%) (Auto) % (0.0-3.0) Basophils (%) (Auto) % (0.0-2.0) Neutrophils % (Manual) Pending Lymphocytes % (Manual) Pending Platelet Estimate Pending Platelet Morphology Pending Prothrombin Time 12.8 SEC (9.30-11.50) H Prothromb Time International Ratio 1.2 (0.9-1.1) H Sodium Level 137 MMOL/L (136-145) Potassium Level 3.3 MMOL/L (3.5-5.1) L Chloride Level 96 MMOL/L (98-107) L Carbon Dioxide Level 31 MMOL/L (21-32) Anion Gap 10 mmol/L (5-15) Blood Urea Nitrogen 59 mg/dL (7-18) H Creatinine 2.2 MG/DL (0.55-1.30) H Estimat Glomerular Filtration Rate 23.9 mL/min (>60) Glucose Level 89 MG/DL (74-106) Calcium Level 9.1 MG/DL (8.5-10.1) Phosphorus Level 3.3 MG/DL (2.5-4.9) Magnesium Level 2.4 MG/DL (1.8-2.4) Total Bilirubin 0.3 MG/DL (0.2-1.0) Aspartate Amino Transf (AST/SGOT) 25 U/L (15-37) Alanine Aminotransferase (ALT/SGPT) 9 U/L (12-78) L Alkaline Phosphatase 177 U/L (46-116) H C-Reactive Protein, Quantitative 8.7 mg/dL (0.00-0.90) H Pro-B-Type Natriuretic Peptide > 53714 pg/mL (0-125) H Total Protein 7.4 G/DL (6.4-8.2) Albumin 2.2 G/DL (3.4-5.0) L Globulin 5.2 g/dL Albumin/Globulin Ratio 0.4 (1.0-2.7) L Random Vancomycin Level 15.4 ug/mL Current Medications Medications (Trade) Dose Ordered Sig/Penny Route PRN Reason Start Time Stop Time Status Last Admin Dose Admin Acetaminophen (Tylenol) 325 mg Q6H PRN GT Temp >100.5 09/23/19 10:45 10/23/19 10:44 09/23/19 18:55 Acetylcysteine (Mucomyst) 200 mg Q6HRT [facility] 09/18/19 19:00 12/17/19 18:59 09/27/19 07:07 Albuterol/ Ipratropium (Albuterol/ Ipratropium) 3 ml Q6HRT [facility] 09/25/19 13:00 09/30/19 12:59 09/27/19 07:06 Chlorhexidine Gluconate (Ling-Hex 2%) 1 applic DAILY@1999 TOPIC 09/23/19 20:00 12/22/19 19:59 09/26/19 21:15 Diltiazem HCl (Cardizem Tab) 30 mg EVERY 8 HOURS GT 09/25/19 14:00 10/15/19 11:59 09/27/19 06:10 Docusate Sodium (Colace) 100 mg TID GT 09/17/19 13:00 10/15/19 08:59 09/26/19 17:12 Epoetin Gelacio (Epoetin Gelacio(ESRD on dialysis)) 10,000 unit MON-MON-MON SUBQ 09/25/19 21:00 12/24/19 20:59 09/25/19 21:23 Fentanyl Citrate 250 ml @ 0 mls/hr Q24H IV 09/21/19 09:30 12/20/19 09:29 09/26/19 23:59 Heparin Sodium (Porcine) (Heparin 5000 units/ml) 5,000 units EVERY 12 HOURS SUBQ 09/17/19 21:00 10/30/19 08:59 09/26/19 21:16 Hydralazine HCl (Apresoline) 10 mg Q4H PRN IV BP over 160 systolic 09/17/19 11:15 12/14/19 11:14 09/24/19 15:55 Hydralazine HCl (Apresoline) 50 mg Q6HR GT 09/26/19 18:00 12/15/19 17:59 09/27/19 06:10 Meropenem 500 mg/ Sodium Chloride 55 ml @ 110 mls/hr Q24H IVPB 09/25/19 09:00 09/30/19 08:59 09/26/19 09:03 Metoprolol Tartrate (Lopressor) 25 mg EVERY 12 HOURS GT 09/25/19 21:00 12/14/19 20:59 09/26/19 21:15 Midazolam HCl (Versed 2mg/2ml vial) 1 mg Q4H PRN IVP For Anxiety 09/21/19 09:30 12/20/19 09:29 09/26/19 17:11 Midazolam HCl 50 mg/Sodium Chloride 100 ml @ 0 mls/hr Q24H PRN IV Agitation 09/26/19 17:35 10/26/19 17:34 09/26/19 18:52 Olanzapine (ZyPREXA) 2.5 mg DAILY GT 09/18/19 09:00 10/30/19 08:59 09/26/19 08:59 Pantoprazole (Protonix) 40 mg EVERY 12 HOURS IVP 09/21/19 21:00 10/21/19 20:59 09/26/19 21:15 Sertraline HCl (Zoloft) 100 mg BEDTIME GT 09/17/19 21:00 10/15/19 20:59 09/26/19 21:15 Vancomycin HCl (Vanco pharmacy to dose) 1 ea DAILY PRN MISC Per rx protocol 09/18/19 09:00 10/16/19 13:44 Vancomycin HCl 500 mg/Dextrose 110 ml @ 110 mls/hr NOW ONCE IVPB 09/27/19 08:00 09/27/19 08:59 Ro Pack M.D. Sep 27, 2019 07:56
[2019-09-27] MEDS ORDERED: Vancomycin 500mg/D5W 110ml IVPB ONE ×2 (08:00)
--- NOTE | 2019-09-27 08:09 | General Progress Note ---
Assessment/Plan Problem List: (1) S/P aortic dissection repair ICD Codes: Z98.890 - Other specified postprocedural states SNOMED: 997043817, 505386213 (2) Sacral decubitus ulcer, stage IV ICD Codes: L89.154 - Pressure ulcer of sacral region, stage 4 SNOMED: 730268626, 024088986 (3) Anemia ICD Codes: D64.9 - Anemia, unspecified SNOMED: 734720118 (4) GT CLOGGED (5) Feeding by G-tube ICD Codes: Z93.1 - Gastrostomy status SNOMED: 342115728, 095898724 (6) Tracheostomy in place ICD Codes: Z93.0 - Tracheostomy status SNOMED: 463527615 (7) Pacemaker ICD Codes: Z95.0 - Presence of cardiac pacemaker SNOMED: 567992523 (8) Chronic respiratory failure ICD Codes: J96.10 - Chronic respiratory failure, unspecified whether with hypoxia or hypercapnia SNOMED: 72407197 Assessment/Plan: anemia work up will change the GT today at the bedside repeat labs ICU care Subjective ROS Limited/Unobtainable: No Allergies: Coded Allergies: No Known Allergies (Unverified , 10/10/17) Objective Last 24 Hour Vital Signs Date Time Temp Pulse Resp B/P (MAP) Pulse Ox O2 Delivery O2 Flow Rate FiO2 09/27/19 07:21 78 20 93 Mechanical Ventilator 100 71 20 100 09/27/19 07:15 72 20 108/44 (65) 94 09/27/19 07:00 78 22 123/54 (77) 88 09/27/19 07:00 22 Mechanical Ventilator 100 09/27/19 07:00 22 123/54 100 09/27/19 06:45 81 22 128/45 (72) 87 09/27/19 06:30 82 24 139/53 (81) 89 09/27/19 06:15 83 20 141/48 (79) 90 09/27/19 06:10 140/48 09/27/19 06:10 84 140/48 09/27/19 06:00 86 20 140/48 (78) 91 09/27/19 06:00 20 Mechanical Ventilator 100 09/27/19 06:00 20 140/48 Mechanical Ventilator 100 09/27/19 05:45 83 23 137/43 (74) 90 09/27/19 05:30 86 22 137/50 (79) 90 09/27/19 05:15 87 22 129/55 (79) 90 09/27/19 05:00 94 28 143/57 (85) 93 09/27/19 05:00 28 Mechanical Ventilator 100 09/27/19 05:00 28 143/57 Mechanical Ventilator 100 09/27/19 04:58 107 34 100 09/27/19 04:45 102 25 177/67 (103) 92 09/27/19 04:43 105 36 179/60 (99) 92 09/27/19 04:15 106 28 200/80 (120) 89 09/27/19 04:13 100 09/27/19 04:00 100 09/27/19 04:00 99.3 99 27 192/74 (113) 85 09/27/19 04:00 Mechanical Ventilator Mechanical Ventilator 09/27/19 04:00 24 Mechanical Ventilator 100 09/27/19 04:00 20 192/74 Mechanical Ventilator 100 09/27/19 03:55 94 26 201/79 (119) 87 09/27/19 03:45 98 37 207/80 (122) 84 09/27/19 03:45 24 Mechanical Ventilator 80 09/27/19 03:30 108 30 207/82 (123) 87 09/27/19 03:23 104 09/27/19 03:08 86 24 80 09/27/19 03:00 24 Mechanical Ventilator 80 09/27/19 03:00 24 137/56 Mechanical Ventilator 80 09/27/19 02:45 83 22 137/56 (83) 93 09/27/19 02:30 84 22 151/54 (86) 92 09/27/19 02:15 87 20 163/64 (97) 92 09/27/19 02:00 88 24 154/58 (90) 94 09/27/19 02:00 24 Mechanical Ventilator 80 09/27/19 02:00 24 154/58 Mechanical Ventilator 80 09/27/19 01:45 84 23 138/55 (82) 91 09/27/19 01:30 86 19 172/67 (102) 93 09/27/19 01:15 81 20 164/124 (137) 93 09/27/19 01:00 20 Mechanical Ventilator 80 09/27/19 01:00 20 151/58 Mechanical Ventilator 80 09/27/19 01:00 81 18 151/58 (89) 97 09/27/19 00:55 77 20 100 Mechanical Ventilator 80 79 20 80 09/27/19 00:45 76 20 133/61 (85) 92 09/27/19 00:30 79 20 148/61 (90) 92 09/27/19 00:15 79 21 154/52 (86) 92 09/27/19 00:00 20 Mechanical Ventilator 80 09/27/19 00:00 Mechanical Ventilator Mechanical Ventilator 09/27/19 00:00 98.4 73 20 130/53 (78) 89 09/26/19 23:59 20 124/52 Mechanical Ventilator 80 09/26/19 23:58 124/52 09/26/19 23:45 73 20 124/52 (76) 92 09/26/19 23:30 76 21 128/54 (78) 94 09/26/19 23:01 77 09/26/19 23:00 79 24 151/56 (87) 95 09/26/19 23:00 24 Mechanical Ventilator 80 09/26/19 23:00 24 151/56 Mechanical Ventilator 80 09/26/19 22:53 81 27 80 09/26/19 22:45 22 Mechanical Ventilator 80 09/26/19 22:45 83 21 163/62 (95) 95 09/26/19 22:30 76 22 125/55 (78) 91 09/26/19 22:00 22 Mechanical Ventilator 80 09/26/19 22:00 22 152/62 Mechanical Ventilator 80 09/26/19 22:00 82 24 141/64 (89) 96 09/26/19 21:45 81 22 135/50 (78) 94 09/26/19 21:15 82 20 155/50 (85) 94 09/26/19 21:15 88 138/60 09/26/19 21:15 88 138/60 09/26/19 21:00 86 21 138/60 (86) 97 09/26/19 21:00 22 Mechanical Ventilator 80 09/26/19 21:00 22 138/60 Mechanical Ventilator 80 09/26/19 20:48 88 20 80 09/26/19 20:45 88 21 139/56 (83) 96 09/26/19 20:30 87 24 151/53 (85) 95 09/26/19 20:15 91 19 148/55 (86) 96 09/26/19 20:00 98.8 94 26 153/63 (93) 96 09/26/19 20:00 Mechanical Ventilator Mechanical Ventilator 09/26/19 20:00 24 Mechanical Ventilator 80 09/26/19 20:00 24 153/63 Mechanical Ventilator 80 09/26/19 20:00 80 09/26/19 19:45 97 26 175/73 (107) 97 09/26/19 19:37 101 30 187/83 (117) 94 09/26/19 19:30 24 Mechanical Ventilator 80 09/26/19 19:30 98 25 206/90 (128) 95 09/26/19 19:20 66 20 100 Mechanical Ventilator 80 69 20 80 09/26/19 19:13 86 09/26/19 19:00 20 Mechanical Ventilator 80 09/26/19 19:00 30 187/83 Mechanical Ventilator 80 09/26/19 19:00 80 20 179/122 (141) 100 09/26/19 18:52 26 Mechanical Ventilator 80 09/26/19 18:00 70 20 113/52 (72) 96 09/26/19 18:00 20 117/51 Mechanical Ventilator 80 09/26/19 17:20 Mechanical Ventilator Mechanical Ventilator 09/26/19 17:15 83 24 80 09/26/19 17:12 192/110 09/26/19 17:00 21 164/76 Mechanical Ventilator 80 09/26/19 17:00 82 23 164/76 (105) 98 09/26/19 16:45 93 25 173/101 (125) 97 09/26/19 16:37 91 33 215/91 (132) 96 09/26/19 16:30 89 27 192/110 (137) 94 09/26/19 16:15 87 33 168/73 (104) 97 09/26/19 16:00 99.6 75 19 145/105 (118) 96 09/26/19 16:00 78 09/26/19 16:00 24 145/105 Mechanical Ventilator 80 09/26/19 16:00 Mechanical Ventilator Mechanical Ventilator 09/26/19 15:45 77 21 156/62 (93) 96 09/26/19 15:35 21 143/92 Mechanical Ventilator 80 09/26/19 15:30 74 23 147/64 (91) 97 09/26/19 15:15 75 20 143/92 (109) 96 09/26/19 15:00 80 21 158/62 (94) 97 09/26/19 14:43 81 22 80 09/26/19 14:30 84 21 163/66 (98) 97 09/26/19 14:00 80 09/26/19 14:00 22 160/62 Mechanical Ventilator 70 09/26/19 14:00 82 26 174/67 (102) 96 09/26/19 13:30 72 21 133/55 (81) 91 09/26/19 13:06 76 160/62 09/26/19 13:00 21 175/69 Mechanical Ventilator 70 09/26/19 13:00 78 22 160/62 (94) 97 09/26/19 12:30 79 18 182/72 (108) 100 09/26/19 12:25 75 24 100 Mechanical Ventilator 70 78 21 70 09/26/19 12:23 164/71 09/26/19 12:00 98.4 74 23 175/69 (104) 99 09/26/19 12:00 21 155/67 Mechanical Ventilator 70 09/26/19 12:00 70 09/26/19 12:00 78 09/26/19 12:00 Mechanical Ventilator Mechanical Ventilator 09/26/19 11:30 76 22 184/70 (108) 99 09/26/19 11:14 70 09/26/19 11:14 72 24 70 09/26/19 11:00 21 168/52 Mechanical Ventilator 70 09/26/19 11:00 71 20 155/67 (96) 100 09/26/19 10:30 69 20 121/56 (77) 98 09/26/19 10:00 78 21 168/52 (90) 96 09/26/19 10:00 21 168/52 Mechanical Ventilator 80 09/26/19 09:30 82 25 169/67 (101) 97 09/26/19 09:00 75 22 153/127 (136) 96 09/26/19 09:00 21 143/97 Mechanical Ventilator 80 09/26/19 08:59 84 142/63 09/26/19 08:51 77 23 80 09/26/19 08:30 75 21 149/64 (92) 100 Intake and Output 09/26/19 09/27/19 19:00 07:00 Intake Total 850.2666 ml 642.75 ml Output Total 2055 ml 65 ml Balance -1204.7334 ml 577.75 ml IV Total 370.2666 ml 422.75 ml Tube Feeding 480 ml 160 ml Other 60 ml Output Urine Total 55 ml 65 ml Hemodialysis UF 2000 ml # Bowel Movements 3 Laboratory Tests 09/27/19 02:50: White Blood Count 18.0#H, Red Blood Count 2.69L, Hemoglobin 8.6L, Hematocrit 26.2L, Mean Corpuscular Volume 97, Mean Corpuscular Hemoglobin 31.9H, Mean Corpuscular Hemoglobin Concent 32.9, Red Cell Distribution Width 15.8H, Platelet Count 326, Mean Platelet Volume 6.1L, Neutrophils (%) (Auto) , Lymphocytes (%) (Auto) , Monocytes (%) (Auto) , Eosinophils (%) (Auto) , Basophils (%) (Auto) , Neutrophils % (Manual) [Pending], Lymphocytes % (Manual) [Pending], Platelet Estimate [Pending], Platelet Morphology [Pending], Prothrombin Time 12.8H, Prothromb Time International Ratio 1.2H, Sodium Level 137, Potassium Level 3.3L, Chloride Level 96L, Carbon Dioxide Level 31, Anion Gap 10, Blood Urea Nitrogen 59H, Creatinine 2.2H, Estimat Glomerular Filtration Rate 23.9, Glucose Level 89, Calcium Level 9.1, Phosphorus Level 3.3, Magnesium Level 2.4, Total Bilirubin 0.3, Aspartate Amino Transf (AST/SGOT) 25, Alanine Aminotransferase (ALT/SGPT) 9L, Alkaline Phosphatase 177H, C-Reactive Protein, Quantitative 8.7H, Pro-B-Type Natriuretic Peptide > 80608S, Total Protein 7.4, Albumin 2.2L, Globulin 5.2, Albumin/Globulin Ratio 0.4L, Random Vancomycin Level 15.4 09/27/19 07:49: Arterial Blood pH 7.427, Arterial Blood Partial Pressure CO2 49.5H, Arterial Blood Partial Pressure O2 51.7L, Arterial Blood HCO3 31.9H, Arterial Blood Oxygen Saturation 86.9*L, Arterial Blood Base Excess 6.8H, Rojas Test Positive Height (Feet): 5 Height (Inches): 5.00 Weight (Pounds): 133 General Appearance: lethargic EENT: normal ENT inspection Neck: supple Cardiovascular: normal rate Respiratory/Chest: decreased breath sounds Abdomen: normal bowel sounds, non tender, soft Extremities: non-tender Inder Mccauley MD Sep 27, 2019 08:09
[2019-09-27] MEDS: Midazolam 2mg/2ml Inj IVP PRN (08:57)
[2019-09-27] MEDS: Docusate 100mg/10ml Liq GT SCH ×3 (09:01→18:00)
[2019-09-27] MEDS: Midazolam for drip 50 MG in NS 90 ML IV PRN ×2 (09:01→22:04)
[2019-09-27] MEDS: OLANZapine 2.5mg tab GT SCH (09:01)
[2019-09-27] MEDS: Pantoprazole Inj IVP SCH (09:01)
[2019-09-27] MEDS: fentaNYL 2500mcg/NS 250ml 250 ML IV SCH ×2 (09:06→17:38)
[2019-09-27] MEDS: Heparin 5000 units/ml inj SUBQ SCH ×2 (09:07→20:33)
--- NOTE | 2019-09-27 09:29 | Nephrology Progress Note ---
Assessment/Plan Problem List: (1) JAVIER (acute kidney injury) (2) Renal failure (ARF), acute on chronic (3) Dehydration (4) Electrolyte imbalance (5) Anemia (6) Respiratory failure, acute and chronic (7) COPD with exacerbation Assessment Patient is presented with sepsis and pneumonia and UTI Patient has acute renal failure, possible underlying chronic kidney failure Severe anemia Electrolyte imbalances: Hyponatremia, hypo-kalemia Chronic respiratory failure, COPD exacerbation Plan September 26: Lab reviewed. Dialyzed yesterday. Potassium supplement given. Medication list reviewed. Will observe renal parameters and arrange for dialysis as needed. September 25: Lab reviewed. Currently on hemodialysis. Tolerating well. Stable from renal standpoint of view. Blood pressure medication adjusted by increasing hydralazine. September 24: Lab reviewed. ABG reviewed. Both lab and ABG much improved. Patient was dialyzed yesterday. We will attempt dialysis tomorrow again. Will adjust that blood pressure medication dosages. September 23: Lab reviewed. ABG reviewed. Patient acidotic. IV bicarb 1 dose is given. Patient has dialysis catheter. Will order dialysis for ultrafiltration and correction of acid-base. Discussed with ERASMO Mohr. September 22: Labs reviewed. Potassium high. Kayexalate and Reglan given. Will discuss with the consultants regarding initiation of dialysis. September 21: Patient is being sedated. Labs reviewed. Potassium supplement discontinued. GFR 20. Continue per current treatment plan. Dialysis and ultrafiltration is a consideration. September 20: Patient periodically agitated. Labs reviewed. Creatinine 2.4. Medication reviewed. Continue per consultants. Calculated creatinine clearance 21. May need isolated ultrafiltration on dialysis. Will discuss with PMD. Meanwhile hemoglobin is lower, defer transfusion to PMD. September 19: DC IV fluid. Zaroxolyn via GT tube. Potassium supplement. Attempt to diurese. Chest CT as bilateral pleural effusion. If diuresis unsuccessful, will consider dialysis and ultrafiltration. September 18: Potassium supplement IV given. Hemoglobin stable. Patient remains full code. Continue per consultants. Previously: Potassium supplement IV Slow IV hydration Epogen subcu Adjust blood pressure medication IV fluid, rate adjusted Norman catheter, intake and output Monitor renal parameters Avoid nephrotoxic's Antibiotics Per orders 2D echocardiogram Kidney ultrasound Subjective ROS Limited/Unobtainable: Yes Objective Objective Last 24 Hour Vital Signs Date Time Temp Pulse Resp B/P (MAP) Pulse Ox O2 Delivery O2 Flow Rate FiO2 09/27/19 09:08 82 167/87 09/27/19 09:06 25 163/62 Mechanical Ventilator 100 09/27/19 09:01 25 Mechanical Ventilator 100 09/27/19 07:21 78 20 93 Mechanical Ventilator 100 71 20 100 09/27/19 07:15 72 20 108/44 (65) 94 09/27/19 07:00 78 22 123/54 (77) 88 09/27/19 07:00 22 Mechanical Ventilator 100 09/27/19 07:00 22 123/54 100 09/27/19 06:45 81 22 128/45 (72) 87 09/27/19 06:30 82 24 139/53 (81) 89 09/27/19 06:15 83 20 141/48 (79) 90 09/27/19 06:10 140/48 09/27/19 06:10 84 140/48 09/27/19 06:00 86 20 140/48 (78) 91 09/27/19 06:00 20 Mechanical Ventilator 100 09/27/19 06:00 20 140/48 Mechanical Ventilator 100 09/27/19 05:45 83 23 137/43 (74) 90 09/27/19 05:30 86 22 137/50 (79) 90 09/27/19 05:15 87 22 129/55 (79) 90 09/27/19 05:00 94 28 143/57 (85) 93 09/27/19 05:00 28 Mechanical Ventilator 100 09/27/19 05:00 28 143/57 Mechanical Ventilator 100 09/27/19 04:58 107 34 100 09/27/19 04:45 102 25 177/67 (103) 92 09/27/19 04:43 105 36 179/60 (99) 92 09/27/19 04:15 106 28 200/80 (120) 89 09/27/19 04:13 100 09/27/19 04:00 100 09/27/19 04:00 99.3 99 27 192/74 (113) 85 09/27/19 04:00 Mechanical Ventilator Mechanical Ventilator 09/27/19 04:00 24 Mechanical Ventilator 100 09/27/19 04:00 20 192/74 Mechanical Ventilator 100 09/27/19 03:55 94 26 201/79 (119) 87 09/27/19 03:45 98 37 207/80 (122) 84 09/27/19 03:45 24 Mechanical Ventilator 80 09/27/19 03:30 108 30 207/82 (123) 87 09/27/19 03:23 104 09/27/19 03:08 86 24 80 09/27/19 03:00 24 Mechanical Ventilator 80 09/27/19 03:00 24 137/56 Mechanical Ventilator 80 09/27/19 02:45 83 22 137/56 (83) 93 09/27/19 02:30 84 22 151/54 (86) 92 09/27/19 02:15 87 20 163/64 (97) 92 09/27/19 02:00 88 24 154/58 (90) 94 09/27/19 02:00 24 Mechanical Ventilator 80 09/27/19 02:00 24 154/58 Mechanical Ventilator 80 09/27/19 01:45 84 23 138/55 (82) 91 09/27/19 01:30 86 19 172/67 (102) 93 09/27/19 01:15 81 20 164/124 (137) 93 09/27/19 01:00 20 Mechanical Ventilator 80 09/27/19 01:00 20 151/58 Mechanical Ventilator 80 09/27/19 01:00 81 18 151/58 (89) 97 09/27/19 00:55 77 20 100 Mechanical Ventilator 80 79 20 80 09/27/19 00:45 76 20 133/61 (85) 92 09/27/19 00:30 79 20 148/61 (90) 92 09/27/19 00:15 79 21 154/52 (86) 92 09/27/19 00:00 20 Mechanical Ventilator 80 09/27/19 00:00 Mechanical Ventilator Mechanical Ventilator 09/27/19 00:00 98.4 73 20 130/53 (78) 89 09/26/19 23:59 20 124/52 Mechanical Ventilator 80 09/26/19 23:58 124/52 09/26/19 23:45 73 20 124/52 (76) 92 09/26/19 23:30 76 21 128/54 (78) 94 09/26/19 23:01 77 09/26/19 23:00 79 24 151/56 (87) 95 09/26/19 23:00 24 Mechanical Ventilator 80 09/26/19 23:00 24 151/56 Mechanical Ventilator 80 8/13/20 22:53 81 27 80 09/26/19 22:45 22 Mechanical Ventilator 80 09/26/19 22:45 83 21 163/62 (95) 95 09/26/19 22:30 76 22 125/55 (78) 91 09/26/19 22:00 22 Mechanical Ventilator 80 09/26/19 22:00 22 152/62 Mechanical Ventilator 80 09/26/19 22:00 82 24 141/64 (89) 96 09/26/19 21:45 81 22 135/50 (78) 94 09/26/19 21:15 82 20 155/50 (85) 94 09/26/19 21:15 88 138/60 09/26/19 21:15 88 138/60 09/26/19 21:00 86 21 138/60 (86) 97 09/26/19 21:00 22 Mechanical Ventilator 80 09/26/19 21:00 22 138/60 Mechanical Ventilator 80 09/26/19 20:48 88 20 80 09/26/19 20:45 88 21 139/56 (83) 96 09/26/19 20:30 87 24 151/53 (85) 95 09/26/19 20:15 91 19 148/55 (86) 96 09/26/19 20:00 98.8 94 26 153/63 (93) 96 09/26/19 20:00 Mechanical Ventilator Mechanical Ventilator 09/26/19 20:00 24 Mechanical Ventilator 80 09/26/19 20:00 24 153/63 Mechanical Ventilator 80 09/26/19 20:00 80 09/26/19 19:45 97 26 175/73 (107) 97 09/26/19 19:37 101 30 187/83 (117) 94 09/26/19 19:30 24 Mechanical Ventilator 80 09/26/19 19:30 98 25 206/90 (128) 95 09/26/19 19:20 66 20 100 Mechanical Ventilator 80 69 20 80 09/26/19 19:13 86 09/26/19 19:00 20 Mechanical Ventilator 80 09/26/19 19:00 30 187/83 Mechanical Ventilator 80 09/26/19 19:00 80 20 179/122 (141) 100 09/26/19 18:52 26 Mechanical Ventilator 80 09/26/19 18:00 70 20 113/52 (72) 96 09/26/19 18:00 20 117/51 Mechanical Ventilator 80 09/26/19 17:20 Mechanical Ventilator Mechanical Ventilator 09/26/19 17:15 83 24 80 09/26/19 17:12 192/110 09/26/19 17:00 21 164/76 Mechanical Ventilator 80 09/26/19 17:00 82 23 164/76 (105) 98 09/26/19 16:45 93 25 173/101 (125) 97 09/26/19 16:37 91 33 215/91 (132) 96 09/26/19 16:30 89 27 192/110 (137) 94 09/26/19 16:15 87 33 168/73 (104) 97 09/26/19 16:00 99.6 75 19 145/105 (118) 96 09/26/19 16:00 78 09/26/19 16:00 24 145/105 Mechanical Ventilator 80 09/26/19 16:00 Mechanical Ventilator Mechanical Ventilator 09/26/19 15:45 77 21 156/62 (93) 96 09/26/19 15:35 21 143/92 Mechanical Ventilator 80 09/26/19 15:30 74 23 147/64 (91) 97 09/26/19 15:15 75 20 143/92 (109) 96 09/26/19 15:00 80 21 158/62 (94) 97 09/26/19 14:43 81 22 80 09/26/19 14:30 84 21 163/66 (98) 97 09/26/19 14:00 80 09/26/19 14:00 22 160/62 Mechanical Ventilator 70 09/26/19 14:00 82 26 174/67 (102) 96 09/26/19 13:30 72 21 133/55 (81) 91 09/26/19 13:06 76 160/62 09/26/19 13:00 21 175/69 Mechanical Ventilator 70 09/26/19 13:00 78 22 160/62 (94) 97 09/26/19 12:30 79 18 182/72 (108) 100 09/26/19 12:25 75 24 100 Mechanical Ventilator 70 78 21 70 09/26/19 12:23 164/71 09/26/19 12:00 98.4 74 23 175/69 (104) 99 09/26/19 12:00 21 155/67 Mechanical Ventilator 70 09/26/19 12:00 70 09/26/19 12:00 78 09/26/19 12:00 Mechanical Ventilator Mechanical Ventilator 09/26/19 11:30 76 22 184/70 (108) 99 09/26/19 11:14 70 09/26/19 11:14 72 24 70 09/26/19 11:00 21 168/52 Mechanical Ventilator 70 09/26/19 11:00 71 20 155/67 (96) 100 09/26/19 10:30 69 20 121/56 (77) 98 09/26/19 10:00 78 21 168/52 (90) 96 09/26/19 10:00 21 168/52 Mechanical Ventilator 80 09/26/19 09:30 82 25 169/67 (101) 97 Intake and Output 09/26/19 09/27/19 19:00 07:00 Intake Total 850.2666 ml 642.75 ml Output Total 2055 ml 65 ml Balance -1204.7334 ml 577.75 ml IV Total 370.2666 ml 422.75 ml Tube Feeding 480 ml 160 ml Other 60 ml Output Urine Total 55 ml 65 ml Hemodialysis UF 2000 ml # Bowel Movements 3 Laboratory Tests 09/27/19 02:50: White Blood Count 18.0#H, Red Blood Count 2.69L, Hemoglobin 8.6L, Hematocrit 26.2L, Mean Corpuscular Volume 97, Mean Corpuscular Hemoglobin 31.9H, Mean Corpuscular Hemoglobin Concent 32.9, Red Cell Distribution Width 15.8H, Platelet Count 326, Mean Platelet Volume 6.1L, Neutrophils (%) (Auto) , Lymphocytes (%) (Auto) , Monocytes (%) (Auto) , Eosinophils (%) (Auto) , Basophils (%) (Auto) , Differential Total Cells Counted 100, Neutrophils % ( Manual) 75, Lymphocytes % (Manual) 15L, Monocytes % (Manual) 4, Eosinophils % ( Manual) 5H, Basophils % (Manual) 0, Band Neutrophils 1, Nucleated Red Blood Cells 1, Platelet Estimate Adequate, Platelet Morphology Normal, Hypochromasia 2 +, Ovalocytes 1+, Prothrombin Time 12.8H, Prothromb Time International Ratio 1.2H, Sodium Level 137, Potassium Level 3.3L, Chloride Level 96L, Carbon Dioxide Level 31, Anion Gap 10, Blood Urea Nitrogen 59H, Creatinine 2.2H, Estimat Glomerular Filtration Rate 23.9, Glucose Level 89, Calcium Level 9.1, Phosphorus Level 3.3, Magnesium Level 2.4, Total Bilirubin 0.3, Aspartate Amino Transf (AST/SGOT) 25, Alanine Aminotransferase (ALT/SGPT) 9L, Alkaline Phosphatase 177H, C-Reactive Protein, Quantitative 8.7H, Pro-B-Type Natriuretic Peptide > 30316R, Total Protein 7.4, Albumin 2.2L, Globulin 5.2, Albumin/ Globulin Ratio 0.4L, Random Vancomycin Level 15.4 09/27/19 07:49: Arterial Blood pH 7.427, Arterial Blood Partial Pressure CO2 49.5H, Arterial Blood Partial Pressure O2 51.7L, Arterial Blood HCO3 31.9H, Arterial Blood Oxygen Saturation 86.9*L, Arterial Blood Base Excess 6.8H, Rojas Test Positive Height (Feet): 5 Height (Inches): 5.00 Weight (Pounds): 133 General Appearance: no apparent distress EENT: other - Trach to vent Cardiovascular: normal rate Respiratory/Chest: decreased breath sounds Abdomen: distended Objective No change Johnny Houston MD Sep 27, 2019 09:29
[2019-09-27] MEDS ORDERED: Sterile Water Irrig 1000ml IRRIG ONE (09:55)
[2019-09-27] MEDS ORDERED: NS 275ml ONE (09:55)
[2019-09-27] MEDS ORDERED: Tubing IV Secondary IV ONE (09:55)
[2019-09-27] MEDS ORDERED: Gentamicin Rx monitoring MISC PRN (10:00)
[2019-09-27] MEDS ORDERED: Meropenem 1gm/NS 55ml IVPB SCH ×2 (10:00)
--- NOTE | 2019-09-27 10:55 | Diagnostic Imaging Report ---
Indication: Reason For Exam: Pneumonia Technique: Single AP view of the chest. Comparison: Chest radiograph dated 09/26/2019 Findings: The cardiomediastinal silhouette is unchanged. No significant change in layering left pleural effusion with associated airspace opacities. Increasing right perihilar consolidation. Redemonstration of diffuse interstitial opacities. No pneumothorax. Unchanged cannulated tracheostomy and left-sided tunneled dialysis catheter. IMPRESSION: Increasing right perihilar airspace consolidation.
[2019-09-27] MEDS ORDERED: NS IVPB ONE (11:00)
[2019-09-27] MEDS ORDERED: GENTAMICIN 120 MG/100 ML IVPB ONE (11:00)
[2019-09-27] MEDS: traMADol 50mg tab GT SCH ×2 (11:07→18:00)
--- NOTE | 2019-09-27 11:19 | Pulmonolgy Critical Care Note ---
Yara Castro DIGITAL MEDIA DESIGNER 09/27/19 1119: Critical Care - Asmt/Plan Assessment/Plan: ASSESSMENT Acute on chronic hypoxemic respiratory failure ( trach dependent), now on vent Tracheostomy status, s/p change to cuffed trach Sepsis Pulmonary edema Pleural effusion -worsening left pl effusion Pneumonia UTI CHF ? cardiorenal COPD Acute kidney injury and chronic kidney disease-requiring start of HD Hypertension Atrial fibrillation Moderate pulm HTN Moderate AR Dysphagia , feeding by G-tube Electrolyte abnormalities Anemia Toxic metabolic encephalopathy likely due to sepsis and ARF HTN PAF PLAN OF CARE ICU on vent AC trach changed 8/4 pm from uncuffed to cuffed Shiley#[address] chest w/out contrast: - Bilateral pleural effusions, right greater than left, with bilateral lower lobe consolidation or volume loss. -Ground-glass densities in the upper lobes bilaterally. This is not specific. -Tracheostomy. -Increased superior mediastinal density. Stability of adenopathy cannot be excluded. -Atherosclerotic change. -Gastrostomy. -Ascites. -Left renal stent with left hydronephrosis and renal atrophy. VQ scan -> low probability for PE worsening resp status was due to need for HD, now after HD started, resp status improving, down to PEEP 5 and AC 20 CXR 09/25 -> Bilateral left greater than right interstitial and airspace infiltrates versus edema, large left pleural effusion persist, probably not significantly changed. Tracheostomy, left jugular temporary dialysis catheter are again demonstrated. CXR 09/26 -> Increasing right perihilar airspace consolidation. trach care , pulmonary toilet ABG noted with O2 sat 87, keep settings as is as long as pulse ox on monitor above 90% ABG in am rapid COVID 19 NGT x3 sedation with fentanyl gtt and Versed gtt attempt another thoracentesis 09/26 am , fluid analysis aspiration precautions venous Duplex BLE -> NGT DVT prophylaxis pulm toilet, continue Mucomyst to help in loosening secretions abx as per ID-Meropenem, Vanco SCX 8/3 + Proteus, SCX 8/10 Pseudomonas MDR UCX 8/2 + Providencia , UCX 8/10 VRE 10-20 K only BCX 8/2 Staph epidermidis, BCX 8/3 NGT , BCX 8/10- NGTD monitor volumes was on gentle IVF-> dc monitor renal parameters, lytes, correct lytes as needed , avoid nephrotoxics s/p prior diuretic-Lasix now on HD ECHO with pEF , moderate pulm HTN and moderate AR BP management with current regimen of BB, Cardizem and Hydralazine, remains in SR monitor HH with goal to keep Hgb >7, heme on board on EPO supportive care pain management wound care bowel regimen thank you for a consult Critical Care - Objective Last 24 Hour Vital Signs Date Time Temp Pulse Resp B/P (MAP) Pulse Ox O2 Delivery O2 Flow Rate FiO2 09/27/19 10:42 71 20 100 09/27/19 09:08 82 167/87 09/27/19 09:06 25 163/62 Mechanical Ventilator 100 09/27/19 09:01 25 Mechanical Ventilator 100 09/27/19 08:44 73 20 100 09/27/19 07:21 78 20 93 Mechanical Ventilator 100 71 20 100 09/27/19 07:15 72 20 108/44 (65) 94 09/27/19 07:00 78 22 123/54 (77) 88 09/27/19 07:00 22 Mechanical Ventilator 100 09/27/19 07:00 22 123/54 100 09/27/19 06:45 81 22 128/45 (72) 87 09/27/19 06:30 82 24 139/53 (81) 89 09/27/19 06:15 83 20 141/48 (79) 90 09/27/19 06:10 140/48 09/27/19 06:10 84 140/48 09/27/19 06:00 86 20 140/48 (78) 91 09/27/19 06:00 20 Mechanical Ventilator 100 09/27/19 06:00 20 140/48 Mechanical Ventilator 100 09/27/19 05:45 83 23 137/43 (74) 90 09/27/19 05:30 86 22 137/50 (79) 90 09/27/19 05:15 87 22 129/55 (79) 90 09/27/19 05:00 94 28 143/57 (85) 93 09/27/19 05:00 28 Mechanical Ventilator 100 09/27/19 05:00 28 143/57 Mechanical Ventilator 100 09/27/19 04:58 107 34 100 09/27/19 04:45 102 25 177/67 (103) 92 09/27/19 04:43 105 36 179/60 (99) 92 09/27/19 04:15 106 28 200/80 (120) 89 09/27/19 04:13 100 09/27/19 04:00 100 09/27/19 04:00 99.3 99 27 192/74 (113) 85 09/27/19 04:00 Mechanical Ventilator Mechanical Ventilator 09/27/19 04:00 24 Mechanical Ventilator 100 09/27/19 04:00 20 192/74 Mechanical Ventilator 100 09/27/19 03:55 94 26 201/79 (119) 87 09/27/19 03:45 98 37 207/80 (122) 84 09/27/19 03:45 24 Mechanical Ventilator 80 09/27/19 03:30 108 30 207/82 (123) 87 09/27/19 03:23 104 09/27/19 03:08 86 24 80 09/27/19 03:00 24 Mechanical Ventilator 80 09/27/19 03:00 24 137/56 Mechanical Ventilator 80 09/27/19 02:45 83 22 137/56 (83) 93 09/27/19 02:30 84 22 151/54 (86) 92 09/27/19 02:15 87 20 163/64 (97) 92 09/27/19 02:00 88 24 154/58 (90) 94 09/27/19 02:00 24 Mechanical Ventilator 80 09/27/19 02:00 24 154/58 Mechanical Ventilator 80 09/27/19 01:45 84 23 138/55 (82) 91 09/27/19 01:30 86 19 172/67 (102) 93 09/27/19 01:15 81 20 164/124 (137) 93 09/27/19 01:00 20 Mechanical Ventilator 80 09/27/19 01:00 20 151/58 Mechanical Ventilator 80 09/27/19 01:00 81 18 151/58 (89) 97 09/27/19 00:55 77 20 100 Mechanical Ventilator 80 79 20 80 09/27/19 00:45 76 20 133/61 (85) 92 09/27/19 00:30 79 20 148/61 (90) 92 09/27/19 00:15 79 21 154/52 (86) 92 09/27/19 00:00 20 Mechanical Ventilator 80 09/27/19 00:00 Mechanical Ventilator Mechanical Ventilator 09/27/19 00:00 98.4 73 20 130/53 (78) 89 09/26/19 23:59 20 124/52 Mechanical Ventilator 80 09/26/19 23:58 124/52 09/26/19 23:45 73 20 124/52 (76) 92 09/26/19 23:30 76 21 128/54 (78) 94 09/26/19 23:01 77 09/26/19 23:00 79 24 151/56 (87) 95 09/26/19 23:00 24 Mechanical Ventilator 80 09/26/19 23:00 24 151/56 Mechanical Ventilator 80 09/26/19 22:53 81 27 80 09/26/19 22:45 22 Mechanical Ventilator 80 09/26/19 22:45 83 21 163/62 (95) 95 09/26/19 22:30 76 22 125/55 (78) 91 09/26/19 22:00 22 Mechanical Ventilator 80 09/26/19 22:00 22 152/62 Mechanical Ventilator 80 09/26/19 22:00 82 24 141/64 (89) 96 09/26/19 21:45 81 22 135/50 (78) 94 09/26/19 21:15 82 20 155/50 (85) 94 09/26/19 21:15 88 138/60 09/26/19 21:15 88 138/60 09/26/19 21:00 86 21 138/60 (86) 97 09/26/19 21:00 22 Mechanical Ventilator 80 09/26/19 21:00 22 138/60 Mechanical Ventilator 80 09/26/19 20:48 88 20 80 09/26/19 20:45 88 21 139/56 (83) 96 09/26/19 20:30 87 24 151/53 (85) 95 09/26/19 20:15 91 19 148/55 (86) 96 09/26/19 20:00 98.8 94 26 153/63 (93) 96 09/26/19 20:00 Mechanical Ventilator Mechanical Ventilator 09/26/19 20:00 24 Mechanical Ventilator 80 09/26/19 20:00 24 153/63 Mechanical Ventilator 80 09/26/19 20:00 80 09/26/19 19:45 97 26 175/73 (107) 97 09/26/19 19:37 101 30 187/83 (117) 94 09/26/19 19:30 24 Mechanical Ventilator 80 09/26/19 19:30 98 25 206/90 (128) 95 09/26/19 19:20 66 20 100 Mechanical Ventilator 80 69 20 80 09/26/19 19:13 86 09/26/19 19:00 20 Mechanical Ventilator 80 09/26/19 19:00 30 187/83 Mechanical Ventilator 80 09/26/19 19:00 80 20 179/122 (141) 100 09/26/19 18:52 26 Mechanical Ventilator 80 09/26/19 18:00 70 20 113/52 (72) 96 09/26/19 18:00 20 117/51 Mechanical Ventilator 80 09/26/19 17:20 Mechanical Ventilator Mechanical Ventilator 09/26/19 17:15 83 24 80 09/26/19 17:12 192/110 09/26/19 17:00 21 164/76 Mechanical Ventilator 80 09/26/19 17:00 82 23 164/76 (105) 98 09/26/19 16:45 93 25 173/101 (125) 97 09/26/19 16:37 91 33 215/91 (132) 96 09/26/19 16:30 89 27 192/110 (137) 94 09/26/19 16:15 87 33 168/73 (104) 97 09/26/19 16:00 99.6 75 19 145/105 (118) 96 09/26/19 16:00 78 09/26/19 16:00 24 145/105 Mechanical Ventilator 80 09/26/19 16:00 Mechanical Ventilator Mechanical Ventilator 09/26/19 15:45 77 21 156/62 (93) 96 09/26/19 15:35 21 143/92 Mechanical Ventilator 80 09/26/19 15:30 74 23 147/64 (91) 97 09/26/19 15:15 75 20 143/92 (109) 96 09/26/19 15:00 80 21 158/62 (94) 97 09/26/19 14:43 81 22 80 09/26/19 14:30 84 21 163/66 (98) 97 09/26/19 14:00 80 09/26/19 14:00 22 160/62 Mechanical Ventilator 70 09/26/19 14:00 82 26 174/67 (102) 96 09/26/19 13:30 72 21 133/55 (81) 91 09/26/19 13:06 76 160/62 09/26/19 13:00 21 175/69 Mechanical Ventilator 70 09/26/19 13:00 78 22 160/62 (94) 97 09/26/19 12:30 79 18 182/72 (108) 100 09/26/19 12:25 75 24 100 Mechanical Ventilator 70 78 21 70 09/26/19 12:23 164/71 09/26/19 12:00 98.4 74 23 175/69 (104) 99 09/26/19 12:00 21 155/67 Mechanical Ventilator 70 09/26/19 12:00 70 09/26/19 12:00 78 09/26/19 12:00 Mechanical Ventilator Mechanical Ventilator 09/26/19 11:30 76 22 184/70 (108) 99 09/26/19 11:14 70 09/26/19 11:14 72 24 70 Objective: General Appearance: no apparent distress, bedridden middle age chronically ill looking female on vent AC 500-20-100% PEEP 5, sedated Lines, tubes and drains: left jugular HD catheter HEENT: normocephalic, atraumatic, anicteric, trach - Shiley #7 cuffed XLT, secretions moderate amount, velasco color , thick consistency Respiratory/Chest: no accessory muscle use, few scattered rhonchi bilaterally , Cardiovascular/Chest: normal rate, regular rhythm - SR on tele Abdomen: normal bowel sounds, non tender, soft, G tube Genitourinary/Rectal: Norman Extremities: no edema Skin Exam: warm/dry, multiple tattoos all over the body Neurologic: abnormal gait, sedated Musculoskeletal: atrophy - BLE Critical Care - Subjective ROS Limited/Unobtainable: Yes Interval Events: FiO2 up to 100% ABG with O2 sat 87, no acidosis on AC mode 500-20-10% PEEP 5 pulse ox 92-94 % 09/26 CXR Increasing right perihilar airspace consolidation tap pending for today leuk with trend up this am, low grade fever at MN Condition: critical IV Access: central - L jug HD cath EKG Rhythm: Sinus Rhythm FI02: 100 Vent Support Breath Rate: 20 Vent Support Mode: AC Vent Tidal Volume: 500 Sputum Amount: Small PEEP: 5.0 PIP: 28 Drips: fentanyl gtt 300 mcg/hr, Versed 4 mg/hr Tube Feeding Amount: 0 I&O: Intake and Output 09/26/19 09/27/19 19:00 07:00 Intake Total 850.2666 ml 642.75 ml Output Total 2055 ml 65 ml Balance -1204.7334 ml 577.75 ml IV Total 370.2666 ml 422.75 ml Tube Feeding 480 ml 160 ml Other 60 ml Output Urine Total 55 ml 65 ml Hemodialysis UF 2000 ml # Bowel Movements 3 CXR: 09/26 Increasing right perihilar airspace consolidation. Juve Martinez MD 09/27/19 1415: Critical Care - Asmt/Plan Assessment/Plan: Patient seen and examined with DIGITAL MEDIA DESIGNER. Agree with above A&P as it reflects our joint deliberations. Time Spent (Minutes): 40 Yara Castro NP Sep 27, 2019 11:19 Juve Martinez MD Sep 27, 2019 14:15
--- NOTE | 2019-09-27 14:11 | Surgery Progress Note ---
Surgery Progress Note Subjective Additional Comments no acute events planned for left thora today cxr noted comfortable otherwise on vent support Objective Last 24 Hour Vital Signs Date Time Temp Pulse Resp B/P (MAP) Pulse Ox O2 Delivery O2 Flow Rate FiO2 09/27/19 13:15 64 20 127/51 (76) 97 09/27/19 13:08 124/49 09/27/19 13:08 64 128/49 09/27/19 13:00 64 20 128/49 (75) 97 09/27/19 13:00 21 Mechanical Ventilator 100 09/27/19 13:00 21 143/51 Mechanical Ventilator 100 09/27/19 12:45 65 20 131/49 (76) 97 09/27/19 12:30 65 20 119/48 (71) 97 09/27/19 12:15 66 20 119/48 (71) 98 09/27/19 12:00 98.2 68 19 125/51 (75) 96 09/27/19 12:00 Mechanical Ventilator Mechanical Ventilator 09/27/19 12:00 100 09/27/19 12:00 20 Mechanical Ventilator 100 09/27/19 12:00 20 134/47 Mechanical Ventilator 100 09/27/19 12:00 68 09/27/19 11:37 98.2 09/27/19 11:30 69 20 132/51 (78) 97 09/27/19 11:15 68 20 123/49 (73) 97 09/27/19 11:08 20 134/47 Mechanical Ventilator 100 09/27/19 11:00 71 20 134/47 (76) 96 09/27/19 10:45 74 20 125/50 (75) 96 09/27/19 10:42 71 20 100 09/27/19 10:30 76 20 134/52 (79) 97 09/27/19 10:15 84 23 150/124 (133) 96 09/27/19 10:00 80 26 177/65 (102) 94 09/27/19 10:00 20 Mechanical Ventilator 100 09/27/19 10:00 20 177/65 100 09/27/19 09:45 77 22 128/48 (74) 97 09/27/19 09:30 78 22 128/48 (74) 97 09/27/19 09:15 83 27 149/112 (124) 96 09/27/19 09:08 82 167/87 09/27/19 09:06 25 163/62 Mechanical Ventilator 100 09/27/19 09:01 25 Mechanical Ventilator 100 09/27/19 09:00 87 24 149/112 (124) 95 09/27/19 09:00 20 Mechanical Ventilator 100 09/27/19 09:00 22 149/112 Mechanical Ventilator 100 09/27/19 08:45 83 31 149/57 (87) 95 09/27/19 08:44 73 20 100 09/27/19 08:30 81 20 149/57 (87) 97 09/27/19 08:15 72 20 126/40 (68) 92 09/27/19 08:00 Mechanical Ventilator Mechanical Ventilator 09/27/19 08:00 98.6 74 20 123/41 (68) 93 09/27/19 08:00 100 09/27/19 08:00 72 09/27/19 08:00 20 Mechanical Ventilator 100 09/27/19 08:00 31 123/41 Mechanical Ventilator 100 09/27/19 07:45 71 20 110/44 (66) 90 09/27/19 07:30 71 20 114/43 (66) 93 09/27/19 07:21 78 20 93 Mechanical Ventilator 100 71 20 100 09/27/19 07:15 72 20 108/44 (65) 94 09/27/19 07:00 78 22 123/54 (77) 88 09/27/19 07:00 22 Mechanical Ventilator 100 09/27/19 07:00 22 123/54 100 09/27/19 06:45 81 22 128/45 (72) 87 09/27/19 06:30 82 24 139/53 (81) 89 09/27/19 06:15 83 20 141/48 (79) 90 09/27/19 06:10 140/48 09/27/19 06:10 84 140/48 09/27/19 06:00 86 20 140/48 (78) 91 09/27/19 06:00 20 Mechanical Ventilator 100 09/27/19 06:00 20 140/48 Mechanical Ventilator 100 09/27/19 05:45 83 23 137/43 (74) 90 09/27/19 05:30 86 22 137/50 (79) 90 09/27/19 05:15 87 22 129/55 (79) 90 09/27/19 05:00 94 28 143/57 (85) 93 09/27/19 05:00 28 Mechanical Ventilator 100 09/27/19 05:00 28 143/57 Mechanical Ventilator 100 09/27/19 04:58 107 34 100 09/27/19 04:45 102 25 177/67 (103) 92 09/27/19 04:43 105 36 179/60 (99) 92 09/27/19 04:15 106 28 200/80 (120) 89 09/27/19 04:13 100 09/27/19 04:00 100 09/27/19 04:00 99.3 99 27 192/74 (113) 85 09/27/19 04:00 Mechanical Ventilator Mechanical Ventilator 09/27/19 04:00 24 Mechanical Ventilator 100 09/27/19 04:00 20 192/74 Mechanical Ventilator 100 09/27/19 03:55 94 26 201/79 (119) 87 09/27/19 03:45 98 37 207/80 (122) 84 09/27/19 03:45 24 Mechanical Ventilator 80 09/27/19 03:30 108 30 207/82 (123) 87 09/27/19 03:23 104 09/27/19 03:08 86 24 80 09/27/19 03:00 24 Mechanical Ventilator 80 09/27/19 03:00 24 137/56 Mechanical Ventilator 80 09/27/19 02:45 83 22 137/56 (83) 93 09/27/19 02:30 84 22 151/54 (86) 92 09/27/19 02:15 87 20 163/64 (97) 92 09/27/19 02:00 88 24 154/58 (90) 94 09/27/19 02:00 24 Mechanical Ventilator 80 09/27/19 02:00 24 154/58 Mechanical Ventilator 80 09/27/19 01:45 84 23 138/55 (82) 91 09/27/19 01:30 86 19 172/67 (102) 93 09/27/19 01:15 81 20 164/124 (137) 93 09/27/19 01:00 20 Mechanical Ventilator 80 09/27/19 01:00 20 151/58 Mechanical Ventilator 80 09/27/19 01:00 81 18 151/58 (89) 97 09/27/19 00:55 77 20 100 Mechanical Ventilator 80 79 20 80 09/27/19 00:45 76 20 133/61 (85) 92 09/27/19 00:30 79 20 148/61 (90) 92 09/27/19 00:15 79 21 154/52 (86) 92 09/27/19 00:00 20 Mechanical Ventilator 80 09/27/19 00:00 Mechanical Ventilator Mechanical Ventilator 09/27/19 00:00 98.4 73 20 130/53 (78) 89 09/26/19 23:59 20 124/52 Mechanical Ventilator 80 09/26/19 23:58 124/52 09/26/19 23:45 73 20 124/52 (76) 92 09/26/19 23:30 76 21 128/54 (78) 94 09/26/19 23:01 77 09/26/19 23:00 79 24 151/56 (87) 95 09/26/19 23:00 24 Mechanical Ventilator 80 09/26/19 23:00 24 151/56 Mechanical Ventilator 80 09/26/19 22:53 81 27 80 09/26/19 22:45 22 Mechanical Ventilator 80 09/26/19 22:45 83 21 163/62 (95) 95 09/26/19 22:30 76 22 125/55 (78) 91 09/26/19 22:00 22 Mechanical Ventilator 80 09/26/19 22:00 22 152/62 Mechanical Ventilator 80 09/26/19 22:00 82 24 141/64 (89) 96 09/26/19 21:45 81 22 135/50 (78) 94 09/26/19 21:15 82 20 155/50 (85) 94 09/26/19 21:15 88 138/60 09/26/19 21:15 88 138/60 09/26/19 21:00 86 21 138/60 (86) 97 09/26/19 21:00 22 Mechanical Ventilator 80 09/26/19 21:00 22 138/60 Mechanical Ventilator 80 09/26/19 20:48 88 20 80 09/26/19 20:45 88 21 139/56 (83) 96 09/26/19 20:30 87 24 151/53 (85) 95 09/26/19 20:15 91 19 148/55 (86) 96 09/26/19 20:00 98.8 94 26 153/63 (93) 96 09/26/19 20:00 Mechanical Ventilator Mechanical Ventilator 09/26/19 20:00 24 Mechanical Ventilator 80 09/26/19 20:00 24 153/63 Mechanical Ventilator 80 09/26/19 20:00 80 09/26/19 19:45 97 26 175/73 (107) 97 09/26/19 19:37 101 30 187/83 (117) 94 09/26/19 19:30 24 Mechanical Ventilator 80 09/26/19 19:30 98 25 206/90 (128) 95 09/26/19 19:20 66 20 100 Mechanical Ventilator 80 69 20 80 09/26/19 19:13 86 09/26/19 19:00 20 Mechanical Ventilator 80 09/26/19 19:00 30 187/83 Mechanical Ventilator 80 09/26/19 19:00 80 20 179/122 (141) 100 09/26/19 18:52 26 Mechanical Ventilator 80 09/26/19 18:00 70 20 113/52 (72) 96 09/26/19 18:00 20 117/51 Mechanical Ventilator 80 09/26/19 17:20 Mechanical Ventilator Mechanical Ventilator 09/26/19 17:15 83 24 80 09/26/19 17:12 192/110 09/26/19 17:00 21 164/76 Mechanical Ventilator 80 09/26/19 17:00 82 23 164/76 (105) 98 09/26/19 16:45 93 25 173/101 (125) 97 09/26/19 16:37 91 33 215/91 (132) 96 09/26/19 16:30 89 27 192/110 (137) 94 09/26/19 16:15 87 33 168/73 (104) 97 09/26/19 16:00 99.6 75 19 145/105 (118) 96 09/26/19 16:00 78 09/26/19 16:00 24 145/105 Mechanical Ventilator 80 09/26/19 16:00 Mechanical Ventilator Mechanical Ventilator 09/26/19 15:45 77 21 156/62 (93) 96 09/26/19 15:35 21 143/92 Mechanical Ventilator 80 09/26/19 15:30 74 23 147/64 (91) 97 09/26/19 15:15 75 20 143/92 (109) 96 09/26/19 15:00 80 21 158/62 (94) 97 09/26/19 14:43 81 22 80 8/13/20 14:30 84 21 163/66 (98) 97 I&O Intake and Output 09/26/19 09/27/19 19:00 07:00 Intake Total 850.2666 ml 642.75 ml Output Total 2055 ml 65 ml Balance -1204.7334 ml 577.75 ml IV Total 370.2666 ml 422.75 ml Tube Feeding 480 ml 160 ml Other 60 ml Output Urine Total 55 ml 65 ml Hemodialysis UF 2000 ml # Bowel Movements 3 Dressing: saturated Cardiovascular: RSR Respiratory: decreased breath sounds Abdomen: soft, non-tender, present bowel sounds Extremities: no edema, no tenderness, no cyanosis Laboratory Tests Test 09/27/19 02:50 09/27/19 07:49 White Blood Count 18.0 K/UL (4.8-10.8) #H Red Blood Count 2.69 M/UL (4.20-5.40) L Hemoglobin 8.6 G/DL (12.0-16.0) L Hematocrit 26.2 % (37.0-47.0) L Mean Corpuscular Volume 97 FL (80-99) Mean Corpuscular Hemoglobin 31.9 PG (27.0-31.0) H Mean Corpuscular Hemoglobin Concent 32.9 G/DL (32.0-36.0) Red Cell Distribution Width 15.8 % (11.6-14.8) H Platelet Count 326 K/UL (150-450) Mean Platelet Volume 6.1 FL (6.5-10.1) L Neutrophils (%) (Auto) % (45.0-75.0) Lymphocytes (%) (Auto) % (20.0-45.0) Monocytes (%) (Auto) % (1.0-10.0) Eosinophils (%) (Auto) % (0.0-3.0) Basophils (%) (Auto) % (0.0-2.0) Differential Total Cells Counted 100 Neutrophils % (Manual) 75 % (45-75) Lymphocytes % (Manual) 15 % (20-45) L Monocytes % (Manual) 4 % (1-10) Eosinophils % (Manual) 5 % (0-3) H Basophils % (Manual) 0 % (0-2) Band Neutrophils 1 % (0-8) Nucleated Red Blood Cells 1 /100 WBC Platelet Estimate Adequate Platelet Morphology Normal Hypochromasia 2+ Ovalocytes 1+ Prothrombin Time 12.8 SEC (9.30-11.50) H Prothromb Time International Ratio 1.2 (0.9-1.1) H Sodium Level 137 MMOL/L (136-145) Potassium Level 3.3 MMOL/L (3.5-5.1) L Chloride Level 96 MMOL/L (98-107) L Carbon Dioxide Level 31 MMOL/L (21-32) Anion Gap 10 mmol/L (5-15) Blood Urea Nitrogen 59 mg/dL (7-18) H Creatinine 2.2 MG/DL (0.55-1.30) H Estimat Glomerular Filtration Rate 23.9 mL/min (>60) Glucose Level 89 MG/DL (74-106) Calcium Level 9.1 MG/DL (8.5-10.1) Phosphorus Level 3.3 MG/DL (2.5-4.9) Magnesium Level 2.4 MG/DL (1.8-2.4) Total Bilirubin 0.3 MG/DL (0.2-1.0) Aspartate Amino Transf (AST/SGOT) 25 U/L (15-37) Alanine Aminotransferase (ALT/SGPT) 9 U/L (12-78) L Alkaline Phosphatase 177 U/L (46-116) H C-Reactive Protein, Quantitative 8.7 mg/dL (0.00-0.90) H Pro-B-Type Natriuretic Peptide > 06943 pg/mL (0-125) H Total Protein 7.4 G/DL (6.4-8.2) Albumin 2.2 G/DL (3.4-5.0) L Globulin 5.2 g/dL Albumin/Globulin Ratio 0.4 (1.0-2.7) L Random Vancomycin Level 15.4 ug/mL Arterial Blood pH 7.427 (7.350-7.450) Arterial Blood Partial Pressure CO2 49.5 mmHg (35.0-45.0) H Arterial Blood Partial Pressure O2 51.7 mmHg (75.0-100.0) L Arterial Blood HCO3 31.9 mmol/L (22.0-26.0) H Arterial Blood Oxygen Saturation 86.9 % (95-100) *L Arterial Blood Base Excess 6.8 (-2-2) H Rojas Test Positive Plan Problems: (1) Anemia (2) Proteinuria (3) UTI (urinary tract infection) (4) ARF (acute renal failure) (5) ACS (acute coronary syndrome) (6) Respiratory failure, acute and chronic (7) HCAP (healthcare-associated pneumonia) (8) Abrasion of lip, initial encounter (9) COPD with exacerbation (10) Hypokalemia (11) Sepsis Assessment & Plan: Leukocytosis, anemia, abnormal labs. Renal insufficiency potentially dehydrated Abnormal LFTs alk phos elevated Urine noted significant bacteria likely UTI etiology Wound stable still requiring local care IV antibiotics per infectious disease Discussed with musical instruments assembler Dr. Berkowitz air mattress turn q2h nutritional tf will follow with recs thank you CT noted pending VQ scan - noted poor study low prob PE work respiratory increasing needs sedation weaning vent settings 80% peep 10 now comfortable Hd line in receiving HD plan for left thora 09/26 (12) Chronic respiratory failure (13) Ascites (14) Bacteremia (15) Hypernatremia (16) Pleural effusion (17) Pacemaker (18) Aortic dissection, thoracic (19) Tracheostomy in place Assessment & Plan: trach stable no bleeding currently likely tongue etiology of mild oozing currently hemostatic without trauma (20) Feeding by G-tube Assessment & Plan: okay to resume tube feeds via g tube patent and functional dressings okay DAILY ESTIMATED NEEDS: Needs based on Pulmonary, wound 49kg 30-35 kcals/kg 1011-7883 total kcals 1.25-2 g protein/kg 61-98 g total protein Fluid per MD NUTRITION DIAGNOSIS: * Swallowing difficulty R/T dysphagia, respiratory status as evidenced by vent dep via T-collar, GT Dep. (CURRENT TF: Nepro @45ml/hr x 24 hrs) ENTERAL NUTRITION RECOMMENDATIONS: Nepro @ 40ml/hr x 24 hrs to provide 960ml, 1728kcal, 78g prot, 698ml free water * Rec LOWER current rate to 40ml/hr for 24 hrs run. 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 Base of wound is granular with bone exposure at base of sacrococcygeal.(L)10.5cm x (W06.5cm x (D) 2.8cm , undermining 11-3 by 3.6cm @12 o'clock. small amt serosanguineous exudate noted . [place] epithelial along edges bordered by darker skin tone without erythema. Resolving Pressure injury L ischium. Base of wound is 95% pink epithelial ,5% noni at center base of wound. No exudate noted. Both heels are boggy with non-Blanching erythema. Tx.plan: Cleanse Sacral wound with Saline. Loosely pack with Hydrogel impregnated Kerlix. Apply Moisture Barrier Periwound. Cover with Optifoam drsg Daily and prn. Apply Moisture Barrier paste to L Ischium. Cover with Optifoam drsg. Changee very 3 days and prn. Apply Cavilon Skin Barrier to both heels. Cover each heel with Optifoam drsgs. Change every 7 days and prn. Reposition at least every 2hours or as tolerated. Off-load heels with pillow. APM/JENNIFER Mattress overlay. Lane Saavedra Sep 27, 2019 14:11
--- NOTE | 2019-09-27 14:57 | Diagnostic Imaging Report ---
Indications: Pleural effusion Technique: Ultrasound used to localize optimal puncture site. Sterile prepping and draping posterior left chest. Local anesthesia with 1% lidocaine. Under real-time ultrasound guidance, puncture pleural space using thoracentesis needle. Stylet removed. Catheter placed to vacuum bottle suction. Total 900 milliliters of fluid aspirated. Patient tolerated procedure well, without immediate complication. Findings: Followup sonography demonstrates complete resolution of pleural fluid. Impression: Successful ultrasound-guided left thoracentesis, yielding 900 milliliters of fluid. Specimen sent for requested diagnostic studies.
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
--- NOTE | 2019-09-27 15:35 | Diagnostic Imaging Report ---
Indication: Reason For Exam: S/P THORA Technique: Single AP view of the chest. Comparison: Chest regret dated 09/27/2019 at 828 Findings: The cardiomediastinal silhouette is unchanged in appearance. Interval decrease in size of left pleural effusion, now trace. Persistent retrocardiac consolidation and right perihilar airspace opacities. Redemonstration of interstitial edema, which appears slightly increased. No discernible pneumothorax. Unchanged left approach tunneled dialysis catheter, and tracheostomy. IMPRESSION: 1. Status post left thoracentesis with residual trace left pleural effusion. 2. Slight interval increase in interstitial edema.
--- NOTE | 2019-09-27 16:15 | Pre-Procedure Note/Attestation ---
Pre-Procedure Note/Attestation Complete Prior to Procedure Planned Procedure: left Procedure Narrative: thoracentesis - US guided, bedside Indications for Procedure Pre-Operative Diagnosis: pleural effusion Attestation informed consent obtained by ICU staff, confirmed prior to procedure. Vern Prather M.D. Sep 27, 2019 16:15
[2019-09-27] MEDS: Dyna-Hex 2% Top Sol 2oz TOPIC SCH (19:59)
--- NOTE | 2019-09-27 20:11 | Diagnostic Imaging Report ---
EXAM: XR Abdomen, 2 Views CLINICAL HISTORY: TUBE PLCMT TECHNIQUE: Frontal view of the abdomen/pelvis with upright view of the abdomen. COMPARISON: 09/27/2019, earlier study. FINDINGS: Lower thorax: Cardiomegaly. Left pleural effusion and patchy airspace disease at the left lung base. Intraperitoneal space: No free air. Gastrointestinal tract: Unremarkable. No dilation. Bones/joints: Osteopenia. Tubes, lines and devices: Findings are most suggestive of a PEG tube there is noted in place within the stomach. Contrast material is noted within the fundus of the stomach and the body of the stomach. Left-sided double pigtail catheter of the left kidney is partially visualized. IMPRESSION: Gastrostomy tube appears to be in place within the stomach, based on injected contrast.
[2019-09-27] MEDS: Epoetin Alfa-EPBX(ESRD on dialysis)10,000 unit/ml vial SUBQ SCH (20:31)
[2019-09-27] MEDS: Sertraline 100mg tab GT SCH (20:32)
[2019-09-28] VITALS (75 sets, daily range): BP systolic 122–172; BP diastolic 45–86
[2019-09-28] MEDS: HydrALAZINE 50mg tab GT SCH ×4 (00:08→17:14)
[2019-09-28] MEDS: traMADol 50mg tab GT SCH ×4 (00:08→17:14)
[2019-09-28] MEDS: Acetylcysteine 20% Soln 4ml HHN SCH ×4 (01:32→19:00)
[2019-09-28] MEDS: Albuterol/Ipratropium 3ml neb HHN SCH ×4 (01:32→19:41)
[2019-09-28] MEDS: fentaNYL 2500mcg/NS 250ml 250 ML IV SCH ×2 (02:16→12:44)
[2019-09-28 05:10] LABS: HEMATOCRIT 22.7 % (37.0-47.0); HEMOGLOBIN 7.2 G/DL (12.0-16.0); MEAN CORPUSCULAR VOLUME 99 FL (80-99); PLATELET COUNT 242 K/UL (150-450); RED CELL DISTRIBUTION WIDTH 16.6 % (11.6-14.8); WHITE BLOOD COUNT 8.7 K/UL (4.8-10.8)
[2019-09-28] MEDS: dilTIAZem HCl 30mg tab GT SCH ×3 (05:38→22:26)
[2019-09-28 05:40] LABS: ALANINE AMINOTRANSFERASE 7 U/L (12-78); ALBUMIN 1.9 G/DL (3.4-5.0); ALBUMIN/GLOBULIN RATIO 0.4 (1.0-2.7); ALKALINE PHOSPHATASE 142 U/L (46-116); ANION GAP 11 mmol/L (5-15); ASPARTATE AMINO TRANSFERASE 21 U/L (15-37); BILIRUBIN,TOTAL 0.3 MG/DL (0.2-1.0); BLOOD UREA NITROGEN 70 mg/dL (7-18); CALCIUM 8.9 MG/DL (8.5-10.1); CARBON DIOXIDE 29 MMOL/L (21-32); CHLORIDE 100 MMOL/L (98-107); CREATININE 2.5 MG/DL (0.55-1.30); FERRITIN 1341 NG/ML (8-388); POTASSIUM 3.7 MMOL/L (3.5-5.1); SODIUM 140 MMOL/L (136-145)
[2019-09-28 06:18] LABS: % IRON SATURATION 19 % (15-50); IRON 30 ug/dL (50-175); TOTAL IRON BINDING CAPACITY 155 ug/dL (250-450)
--- NOTE | 2019-09-28 08:34 | General Progress Note ---
Assessment/Plan Assessment/Plan: Covering [facility] Assessment and Recs # Leukocytosis, now with gram positive bacteremias well as pna noted --> historically --> PPM site (pocket) infection (redness and pain, bacteremia) and likely pocket abscess - no vegetation seen on ABBIE --> is s'p pm removal and also pocket infection is better --> per cards recs in re to tach/davis --> wbc 15-->19-->17-->15-->13->12-->13-->12>13-->18 --> ABX cefepime/levaquin--> vanc/angelo --> ID recs are noted # Anemia of chronic disease due to underlying chronic medical issues, multifactorial --> Anemia workup has been reviewed, cw acd --> No evidence of hemolysis is noted, peripheral smear has been reviewed. --> Hgb goal >7. Transfuse prn. --> Epogen started --> Medications have been reviewed --> low threshold for gi evaluation in case has occult + --> hgb 7.1-->7.8-->8.9->9.2-->8.5-->9.7-->10-->8.8-->9.6-->8.7->8.6-->7.2 # Thrombocytois is likely reactive process, is s/p infection --> plt trend 610k-->706k --> p smear reviewed # Acute hypoxic respiratory failure s/p intubation 11/23- ?ARDS --> on vent/trach # Gram positive bacteremia- real bacteremia- 2ry to above and probable PNA --> per id care # JAVIER initially >2 --> now improved with D5w # Dysphagia s/p peg # Thoracic aortic dissection s/p repair early 2018 # Psychiatric history on ativan/haldol # [place] resident # Dvt ppx heparin sq The timing of this note does not necessarily reflect the time of the patient was seen. Greatly appreciate consultation. Subjective HEENT: Denies: no symptoms, eye pain, blurred vision, tearing, double vision, ear pain, ear discharge, nose pain, nose congestion, throat pain, throat swelling, mouth pain, mouth swelling, other Cardiovascular: Denies: no symptoms, chest pain, edema, irregular heart rate, lightheadedness, palpitations, syncope, other Respiratory: Denies: no symptoms, cough, orthopnea, shortness of breath, SOB with excertion, SOB at rest, sputum, stridor, wheezing, other Gastrointestinal/Abdominal: Denies: no symptoms, abdomen distended, abdominal pain, black stools, tarry stools, blood in stool, constipated, diarrhea, difficulty swallowing, nausea, poor appetite, poor fluid intake, rectal bleeding , vomiting, other Genitourinary: Denies: no symptoms, burning, discharge, frequency, flank pain, hematuria, incontinence, pain, urgency, other Neurologic/Psychiatric: Denies: no symptoms, anxiety, depressed, emotional problems, headache, numbness, paresthesia, pre-existing deficit, seizure, tingling, tremors, weakness, other Endocrine: Denies: no symptoms, excessive sweating, flushing, intolerance to cold, intolerance to heat, increased hunger, increased thirst, increased urine, unexplained weight gain, unexplained weight loss, other Allergies: Coded Allergies: No Known Allergies (Unverified , 10/10/17) Subjective 09/16 on vent now, consulted in am pulm, on vent setting, labs noted, hep sq 09/17 meds noted, cbc noted, labs noted, no bleeding 09/18 is to undergo potential v/q scan given abg, labs noted, resless, on ativan, to get haldol today, roman ramesh 09/19 remains agitated, covering, with sacral wound seeping, likely cause of anemia, roman ramesh 09/26 restless, remains agitated, gtube ripped, eval with rn, and almai consulted 09/27 remains on vent, agitated, seen by gi, hgb low, roman George to transfuse 1 unit prbc Objective Last 24 Hour Vital Signs Date Time Temp Pulse Resp B/P (MAP) Pulse Ox O2 Delivery O2 Flow Rate FiO2 09/28/19 07:29 68 20 100 Mechanical Ventilator 80 71 20 100 09/28/19 07:00 20 Mechanical Ventilator 80 09/28/19 07:00 20 135/52 Mechanical Ventilator 80 09/28/19 07:00 60 20 135/52 (79) 97 09/28/19 06:30 61 20 126/51 (76) 97 09/28/19 06:00 20 Mechanical Ventilator 80 09/28/19 06:00 20 148/54 Mechanical Ventilator 80 09/28/19 06:00 60 20 148/54 (85) 97 09/28/19 05:38 62 133/53 09/28/19 05:37 133/53 09/28/19 05:30 61 20 133/53 (79) 97 09/28/19 05:09 61 20 80 09/28/19 05:00 60 20 143/56 (85) 98 09/28/19 05:00 20 Mechanical Ventilator 80 09/28/19 05:00 20 143/56 Mechanical Ventilator 80 09/28/19 04:30 61 20 148/63 (91) 99 09/28/19 04:00 Mechanical Ventilator Mechanical Ventilator 09/28/19 04:00 20 Mechanical Ventilator 80 09/28/19 04:00 20 134/54 Mechanical Ventilator 80 09/28/19 04:00 80 09/28/19 04:00 98.0 60 20 134/54 (80) 98 09/28/19 04:00 66 09/28/19 03:30 62 21 149/54 (85) 98 09/28/19 03:27 71 23 80 09/28/19 03:00 22 Mechanical Ventilator 100 09/28/19 03:00 22 142/59 Mechanical Ventilator 100 09/28/19 03:00 64 22 142/59 (86) 100 09/28/19 02:30 59 20 133/46 (75) 99 09/28/19 02:16 20 147/48 Mechanical Ventilator 100 09/28/19 02:00 20 Mechanical Ventilator 100 09/28/19 02:00 20 147/48 Mechanical Ventilator 100 09/28/19 02:00 58 20 147/48 (81) 100 09/28/19 01:32 57 20 100 Mechanical Ventilator 100 68 20 100 09/28/19 01:30 57 20 140/48 (78) 100 09/28/19 01:00 60 20 129/54 (79) 100 09/28/19 01:00 20 Mechanical Ventilator 100 09/28/19 01:00 20 129/54 Mechanical Ventilator 100 09/28/19 00:30 57 20 134/50 (78) 100 09/28/19 00:08 133/45 09/28/19 00:00 100 09/28/19 00:00 Mechanical Ventilator Mechanical Ventilator 09/28/19 00:00 20 Mechanical Ventilator 100 09/28/19 00:00 20 133/45 Mechanical Ventilator 100 09/28/19 00:00 56 09/28/19 00:00 98.8 60 20 133/45 (74) 100 09/27/19 23:36 66 20 100 09/27/19 23:30 57 20 147/80 (102) 100 09/27/19 23:00 21 Mechanical Ventilator 100 09/27/19 23:00 21 126/44 Mechanical Ventilator 100 09/27/19 23:00 57 21 126/44 (71) 99 09/27/19 22:30 59 20 127/45 (72) 100 09/27/19 22:04 20 Mechanical Ventilator 100 09/27/19 22:00 20 124/45 Mechanical Ventilator 100 09/27/19 22:00 64 20 124/45 (71) 100 09/27/19 21:50 70 22 100 09/27/19 21:42 70 154/48 09/27/19 21:30 69 20 150/48 (82) 100 09/27/19 21:00 63 20 137/50 (79) 100 09/27/19 21:00 20 Mechanical Ventilator 100 09/27/19 21:00 20 137/50 Mechanical Ventilator 100 09/27/19 20:32 62 126/60 09/27/19 20:30 63 20 141/46 (77) 99 09/27/19 20:15 62 20 126/50 (75) 97 09/27/19 20:00 97.8 61 19 139/45 (76) 97 09/27/19 20:00 100 09/27/19 20:00 Mechanical Ventilator Mechanical Ventilator 09/27/19 20:00 19 Mechanical Ventilator 100 09/27/19 20:00 19 139/45 Mechanical Ventilator 100 09/27/19 20:00 60 09/27/19 19:38 64 20 100 Mechanical Ventilator 100 68 20 100 09/27/19 19:00 59 20 129/46 (73) 100 09/27/19 19:00 20 Mechanical Ventilator 100 09/27/19 19:00 20 129/46 Mechanical Ventilator 100 09/27/19 18:45 57 20 129/46 (73) 100 09/27/19 18:30 58 20 125/38 (67) 100 09/27/19 18:15 57 20 120/39 (66) 100 09/27/19 18:00 Mechanical Ventilator Mechanical Ventilator 09/27/19 18:00 59 20 129/40 (69) 100 09/27/19 18:00 21 Mechanical Ventilator 100 09/27/19 18:00 20 129/40 Mechanical Ventilator 100 09/27/19 18:00 100 09/27/19 17:45 59 20 136/41 (72) 100 09/27/19 17:38 21 127/41 Mechanical Ventilator 100 09/27/19 17:30 62 20 127/41 (69) 100 09/27/19 17:28 66 22 Mechanical Ventilator 100 09/27/19 17:15 72 21 158/124 (135) 100 09/27/19 17:00 70 19 156/111 (126) 99 09/27/19 17:00 21 Mechanical Ventilator 100 09/27/19 17:00 21 156/111 Mechanical Ventilator 100 09/27/19 16:45 62 20 123/84 (97) 96 09/27/19 16:30 61 20 132/52 (78) 98 09/27/19 16:15 62 19 136/109 (118) 99 09/27/19 16:00 98.0 63 20 124/50 (74) 98 09/27/19 16:00 65 09/27/19 16:00 20 Mechanical Ventilator 100 09/27/19 16:00 20 124/50 Mechanical Ventilator 100 09/27/19 16:00 Mechanical Ventilator Mechanical Ventilator 09/27/19 15:45 64 20 129/45 (73) 99 09/27/19 15:30 65 20 144/65 (91) 100 09/27/19 15:15 68 20 143/53 (83) 100 09/27/19 15:00 20 Mechanical Ventilator 100 09/27/19 15:00 20 128/50 Mechanical Ventilator 100 09/27/19 15:00 67 20 128/50 (76) 99 09/27/19 14:52 67 20 Mechanical Ventilator 100 09/27/19 14:45 70 21 125/52 (76) 100 09/27/19 14:30 73 20 142/51 (81) 100 09/27/19 14:15 76 20 164/130 (141) 97 09/27/19 14:00 72 19 169/80 (109) 96 09/27/19 14:00 20 Mechanical Ventilator 100 8/14/20 14:00 21 169/80 Mechanical Ventilator 100 09/27/19 13:45 66 20 143/51 (81) 96 09/27/19 13:30 66 20 133/51 (78) 98 09/27/19 13:30 65 20 98 Mechanical Ventilator 100 68 20 100 09/27/19 13:15 64 20 127/51 (76) 97 09/27/19 13:08 124/49 09/27/19 13:08 64 128/49 09/27/19 13:00 64 20 128/49 (75) 97 09/27/19 13:00 21 Mechanical Ventilator 100 09/27/19 13:00 21 143/51 Mechanical Ventilator 100 09/27/19 12:45 65 20 131/49 (76) 97 09/27/19 12:30 65 20 119/48 (71) 97 09/27/19 12:15 66 20 119/48 (71) 98 09/27/19 12:00 98.2 68 19 125/51 (75) 96 09/27/19 12:00 Mechanical Ventilator Mechanical Ventilator 09/27/19 12:00 100 09/27/19 12:00 20 Mechanical Ventilator 100 09/27/19 12:00 20 134/47 Mechanical Ventilator 100 09/27/19 12:00 68 09/27/19 11:37 98.2 09/27/19 11:30 69 20 132/51 (78) 97 09/27/19 11:15 68 20 123/49 (73) 97 09/27/19 11:08 20 134/47 Mechanical Ventilator 100 09/27/19 11:00 71 20 134/47 (76) 96 09/27/19 10:45 74 20 125/50 (75) 96 09/27/19 10:42 71 20 100 09/27/19 10:30 76 20 134/52 (79) 97 09/27/19 10:15 84 23 150/124 (133) 96 09/27/19 10:00 80 26 177/65 (102) 94 09/27/19 10:00 20 Mechanical Ventilator 100 09/27/19 10:00 20 177/65 100 09/27/19 09:45 77 22 128/48 (74) 97 09/27/19 09:30 78 22 128/48 (74) 97 09/27/19 09:15 83 27 149/112 (124) 96 09/27/19 09:08 82 167/87 09/27/19 09:06 25 163/62 Mechanical Ventilator 100 09/27/19 09:01 25 Mechanical Ventilator 100 09/27/19 09:00 87 24 149/112 (124) 95 09/27/19 09:00 20 Mechanical Ventilator 100 09/27/19 09:00 22 149/112 Mechanical Ventilator 100 09/27/19 08:45 83 31 149/57 (87) 95 09/27/19 08:44 73 20 100 Intake and Output 09/27/19 09/28/19 19:00 07:00 Intake Total 811 ml 489.46 ml Output Total 1085 ml 730 ml Balance -274 ml -240.54 ml Intake Free Water 10 ml 50 ml IV Total 801 ml 439.46 ml Output Urine Total 85 ml 180 ml Gastric Drainage Total 100 ml 550 ml Other 900 ml Laboratory Tests 09/27/19 14:05: Body Fluid Source Thoracentesis, Body Fluid Volume 24, Body Fluid Appearance Hazy, Body Fluid pH 8.0, Body Fluid RBC 1590, Body Fluid Total Nucleated Cells 67, Body Fluid Polynuclear WBCs (%) 30, Body Fluid Mononuclear WBCs (%) 32, Body Fluid Mesothelial Cells (%) 38, Body Fluid Lactate Dehydrogenase [Pending] 09/28/19 04:26: White Blood Count 8.7#, Red Blood Count 2.30L, Hemoglobin 7.2L, Hematocrit 22.7L , Mean Corpuscular Volume 99, Mean Corpuscular Hemoglobin 31.3H, Mean Corpuscular Hemoglobin Concent 31.8L, Red Cell Distribution Width 16.6H, Platelet Count 242, Mean Platelet Volume 6.1L, Neutrophils (%) (Auto) , Lymphocytes (%) (Auto) , Monocytes (%) (Auto) , Eosinophils (%) (Auto) , Basophils (%) (Auto) , Neutrophils % (Manual) [Pending], Lymphocytes % (Manual) [Pending], Platelet Estimate [Pending], Platelet Morphology [Pending], Sodium Level 140, Potassium Level 3.7, Chloride Level 100, Carbon Dioxide Level 29, Anion Gap 11, Blood Urea Nitrogen 70H, Creatinine 2.5H, Estimat Glomerular Filtration Rate 20.6, Glucose Level 57L, Uric Acid 5.8, Calcium Level 8.9, Phosphorus Level 5.0H, Magnesium Level 2.4, Iron Level 30L, Total Iron Binding Capacity 155L, Percent Iron Saturation 19, Unsaturated Iron Binding 125, Ferritin 1341H, Total Bilirubin 0.3, Aspartate Amino Transf (AST/SGOT) 21, Alanine Aminotransferase (ALT/SGPT) 7L, Alkaline Phosphatase 142H, Troponin I 0.054, C-Reactive Protein, Quantitative 10.0H, Pro-B-Type Natriuretic Peptide > 22357D, Total Protein 6.2L, Albumin 1.9L, Globulin 4.3, Albumin/Globulin Ratio 0.4L, Vitamin B12 Level 1427H, Folate 30.5 09/28/19 07:47: Arterial Blood pH 7.454H, Arterial Blood Partial Pressure CO2 41.2, Arterial Blood Partial Pressure O2 69.3L, Arterial Blood HCO3 28.3H, Arterial Blood Oxygen Saturation 93.3L, Arterial Blood Base Excess 4.0H, Rojas Test Positive Height (Feet): 5 Height (Inches): 5.00 Weight (Pounds): 133 Objective Physical Exam: Vitals: reviewed General: NAD HEENT: nc, at Neck: supple ++tracn/vent Chest: clear breath sounds bilaterally Cardiovascular: RRR, no s3, s4 Abdomen: soft, nontender, nd +gtube Extremities: no cce, normal range of motion Neuro: alert Evan Muhammad MD Sep 28, 2019 08:34
--- NOTE | 2019-09-28 08:35 | Diagnostic Imaging Report ---
EXAM: XR Chest, 1 View CLINICAL HISTORY: SOB TECHNIQUE: Frontal view of the chest. COMPARISON: No relevant prior studies available. FINDINGS/IMPRESSION: Left IJ catheter terminates in the superior vena cava. Endotracheal tube terminates at the level of the clavicular heads. Median sternotomy wires are appreciated. RETROCARDIAC CONSOLIDATION WITH AIR BRONCHOGRAMS THAT MAY REPRESENT ATELECTASIS OF THE LEFT LOWER LOBE VERSUS INFILTRATE. CORRELATE WITH LATERAL VIEW. Small left pleural effusion. Moderate vascular congestion. No pneumothorax. Cardiomegaly. Calcified aorta.
[2019-09-28] MEDS: OLANZapine 2.5mg tab GT SCH (08:42)
[2019-09-28] MEDS: Docusate 100mg/10ml Liq GT SCH ×3 (08:42→17:13)
[2019-09-28] MEDS: Heparin 5000 units/ml inj SUBQ SCH ×2 (08:43→20:42)
[2019-09-28] MEDS ORDERED: Meropenem 500mg/NS 55ml IVPB SCH ×2 (10:00)
--- NOTE | 2019-09-28 11:11 | Pulmonolgy Critical Care Note ---
CastroYara luna [employer] 09/28/19 1111: Critical Care - Asmt/Plan Assessment/Plan: ASSESSMENT Acute on chronic hypoxemic respiratory failure ( trach dependent), now on vent Tracheostomy status, s/p change to cuffed trach Sepsis Pulmonary edema Pleural effusion -worsening left pl effusion s/p thoracentesis L pleural effusion 09/26 -900 ml Pneumonia with MDR Pseudomonas UTI CHF ? cardiorenal COPD Acute kidney injury and chronic kidney disease-requiring start of HD Hypertension Atrial fibrillation Moderate pulm HTN Moderate AR Dysphagia , feeding by G-tube Electrolyte abnormalities Anemia Toxic metabolic encephalopathy likely due to sepsis and ARF HTN PAF PLAN OF CARE ICU on vent AC trach changed 8/4 pm from uncuffed to cuffed Shiley#[address] chest w/out contrast: - Bilateral pleural effusions, right greater than left, with bilateral lower lobe consolidation or volume loss. -Ground-glass densities in the upper lobes bilaterally. This is not specific. -Tracheostomy. -Increased superior mediastinal density. Stability of adenopathy cannot be excluded. -Atherosclerotic change. -Gastrostomy. -Ascites. -Left renal stent with left hydronephrosis and renal atrophy. VQ scan -> low probability for PE worsening resp status was due to need for HD, now after HD started, resp status improving, down to PEEP 5 and AC 20 last CXR 09/25 -> Bilateral left greater than right interstitial and airspace infiltrates versus edema, large left pleural effusion persist, probably not significantly changed. Tracheostomy, left jugular temporary dialysis catheter are again demonstrated. trach care , pulmonary toilet rapid COVID 19 NGT x3 sedation with fentanyl gtt and Versed prn-> start weaning s/p thoracentesis L pleural effusion 09/26 am -> 900 ml fluid analysis noted, fup with fluid cx and cytology aspiration precautions venous Duplex BLE -> NGT DVT prophylaxis pulm toilet, continue Mucomyst to help in loosening secretions abx as per ID- s/p gent x 1, now on Vanco and Zerbaxa SCX 8/3 + Proteus, SCX 8/10 Pseudomonas MDR UCX 8/2 + Providencia , UCX 8/10 VRE 10-20 K only BCX 8/2 Staph epidermidis, BCX 8/3 NGT , BCX 8/10- NGTD monitor volumes was on gentle IVF-> dc s/p prior diuretic-Lasix require initiation of HD close monitoring of volumes, renal parameters and lytes ECHO with pEF , moderate pulm HTN and moderate AR BP management with current regimen of BB, Cardizem and Hydralazine, remains in SR monitor HH with goal to keep Hgb >7, heme on board on EPO supportive care pain management wound care bowel regimen thank you for a consult Critical Care - Objective Last 24 Hour Vital Signs Date Time Temp Pulse Resp B/P (MAP) Pulse Ox O2 Delivery O2 Flow Rate FiO2 09/28/19 10:00 70 22 160/61 (94) 99 09/28/19 09:45 68 20 144/58 (86) 97 09/28/19 09:30 70 19 146/58 (87) 98 09/28/19 09:15 71 20 149/53 (85) 98 09/28/19 09:00 73 19 126/53 (77) 97 09/28/19 08:50 71 20 80 09/28/19 08:45 71 20 151/59 (89) 97 09/28/19 08:43 70 169/57 09/28/19 08:30 75 20 169/57 (94) 97 09/28/19 08:15 75 20 132/47 (75) 95 09/28/19 08:00 75 09/28/19 08:00 80 09/28/19 08:00 98.2 73 20 122/47 (72) 97 09/28/19 08:00 Mechanical Ventilator Mechanical Ventilator 09/28/19 07:45 70 21 141/50 (80) 98 09/28/19 07:30 61 20 154/65 (94) 96 09/28/19 07:29 68 20 100 Mechanical Ventilator 80 71 20 100 09/28/19 07:00 20 Mechanical Ventilator 80 09/28/19 07:00 20 135/52 Mechanical Ventilator 80 09/28/19 07:00 60 20 135/52 (79) 97 09/28/19 06:30 61 20 126/51 (76) 97 09/28/19 06:00 20 Mechanical Ventilator 80 09/28/19 06:00 20 148/54 Mechanical Ventilator 80 09/28/19 06:00 60 20 148/54 (85) 97 09/28/19 05:38 62 133/53 09/28/19 05:37 133/53 09/28/19 05:30 61 20 133/53 (79) 97 09/28/19 05:09 61 20 80 09/28/19 05:00 60 20 143/56 (85) 98 09/28/19 05:00 20 Mechanical Ventilator 80 09/28/19 05:00 20 143/56 Mechanical Ventilator 80 09/28/19 04:30 61 20 148/63 (91) 99 09/28/19 04:00 Mechanical Ventilator Mechanical Ventilator 09/28/19 04:00 20 Mechanical Ventilator 80 09/28/19 04:00 20 134/54 Mechanical Ventilator 80 09/28/19 04:00 80 09/28/19 04:00 98.0 60 20 134/54 (80) 98 09/28/19 04:00 66 09/28/19 03:30 62 21 149/54 (85) 98 09/28/19 03:27 71 23 80 09/28/19 03:00 22 Mechanical Ventilator 100 09/28/19 03:00 22 142/59 Mechanical Ventilator 100 09/28/19 03:00 64 22 142/59 (86) 100 09/28/19 02:30 59 20 133/46 (75) 99 09/28/19 02:16 20 147/48 Mechanical Ventilator 100 09/28/19 02:00 20 Mechanical Ventilator 100 09/28/19 02:00 20 147/48 Mechanical Ventilator 100 09/28/19 02:00 58 20 147/48 (81) 100 09/28/19 01:32 57 20 100 Mechanical Ventilator 100 68 20 100 09/28/19 01:30 57 20 140/48 (78) 100 09/28/19 01:00 60 20 129/54 (79) 100 09/28/19 01:00 20 Mechanical Ventilator 100 09/28/19 01:00 20 129/54 Mechanical Ventilator 100 09/28/19 00:30 57 20 134/50 (78) 100 09/28/19 00:08 133/45 09/28/19 00:00 100 09/28/19 00:00 Mechanical Ventilator Mechanical Ventilator 09/28/19 00:00 20 Mechanical Ventilator 100 09/28/19 00:00 20 133/45 Mechanical Ventilator 100 09/28/19 00:00 56 09/28/19 00:00 98.8 60 20 133/45 (74) 100 09/27/19 23:36 66 20 100 09/27/19 23:30 57 20 147/80 (102) 100 09/27/19 23:00 21 Mechanical Ventilator 100 09/27/19 23:00 21 126/44 Mechanical Ventilator 100 09/27/19 23:00 57 21 126/44 (71) 99 09/27/19 22:30 59 20 127/45 (72) 100 09/27/19 22:04 20 Mechanical Ventilator 100 09/27/19 22:00 20 124/45 Mechanical Ventilator 100 09/27/19 22:00 64 20 124/45 (71) 100 09/27/19 21:50 70 22 100 09/27/19 21:42 70 154/48 09/27/19 21:30 69 20 150/48 (82) 100 09/27/19 21:00 63 20 137/50 (79) 100 09/27/19 21:00 20 Mechanical Ventilator 100 09/27/19 21:00 20 137/50 Mechanical Ventilator 100 09/27/19 20:32 62 126/60 09/27/19 20:30 63 20 141/46 (77) 99 09/27/19 20:15 62 20 126/50 (75) 97 09/27/19 20:00 97.8 61 19 139/45 (76) 97 09/27/19 20:00 100 09/27/19 20:00 Mechanical Ventilator Mechanical Ventilator 09/27/19 20:00 19 Mechanical Ventilator 100 09/27/19 20:00 19 139/45 Mechanical Ventilator 100 09/27/19 20:00 60 09/27/19 19:38 64 20 100 Mechanical Ventilator 100 68 20 100 09/27/19 19:00 59 20 129/46 (73) 100 09/27/19 19:00 20 Mechanical Ventilator 100 09/27/19 19:00 20 129/46 Mechanical Ventilator 100 09/27/19 18:45 57 20 129/46 (73) 100 09/27/19 18:30 58 20 125/38 (67) 100 09/27/19 18:15 57 20 120/39 (66) 100 09/27/19 18:00 Mechanical Ventilator Mechanical Ventilator 09/27/19 18:00 59 20 129/40 (69) 100 09/27/19 18:00 21 Mechanical Ventilator 100 09/27/19 18:00 20 129/40 Mechanical Ventilator 100 09/27/19 18:00 100 09/27/19 17:45 59 20 136/41 (72) 100 09/27/19 17:38 21 127/41 Mechanical Ventilator 100 09/27/19 17:30 62 20 127/41 (69) 100 09/27/19 17:28 66 22 Mechanical Ventilator 100 09/27/19 17:15 72 21 158/124 (135) 100 09/27/19 17:00 70 19 156/111 (126) 99 09/27/19 17:00 21 Mechanical Ventilator 100 09/27/19 17:00 21 156/111 Mechanical Ventilator 100 09/27/19 16:45 62 20 123/84 (97) 96 09/27/19 16:30 61 20 132/52 (78) 98 09/27/19 16:15 62 19 136/109 (118) 99 09/27/19 16:00 98.0 63 20 124/50 (74) 98 09/27/19 16:00 65 09/27/19 16:00 20 Mechanical Ventilator 100 09/27/19 16:00 20 124/50 Mechanical Ventilator 100 09/27/19 16:00 Mechanical Ventilator Mechanical Ventilator 09/27/19 15:45 64 20 129/45 (73) 99 09/27/19 15:30 65 20 144/65 (91) 100 09/27/19 15:15 68 20 143/53 (83) 100 09/27/19 15:00 20 Mechanical Ventilator 100 09/27/19 15:00 20 128/50 Mechanical Ventilator 100 09/27/19 15:00 67 20 128/50 (76) 99 09/27/19 14:52 67 20 Mechanical Ventilator 100 09/27/19 14:45 70 21 125/52 (76) 100 09/27/19 14:30 73 20 142/51 (81) 100 09/27/19 14:15 76 20 164/130 (141) 97 09/27/19 14:00 72 19 169/80 (109) 96 09/27/19 14:00 20 Mechanical Ventilator 100 09/27/19 14:00 21 169/80 Mechanical Ventilator 100 09/27/19 13:45 66 20 143/51 (81) 96 09/27/19 13:30 66 20 133/51 (78) 98 09/27/19 13:30 65 20 98 Mechanical Ventilator 100 68 20 100 09/27/19 13:15 64 20 127/51 (76) 97 09/27/19 13:08 124/49 09/27/19 13:08 64 128/49 09/27/19 13:00 64 20 128/49 (75) 97 09/27/19 13:00 21 Mechanical Ventilator 100 09/27/19 13:00 21 143/51 Mechanical Ventilator 100 09/27/19 12:45 65 20 131/49 (76) 97 09/27/19 12:30 65 20 119/48 (71) 97 09/27/19 12:15 66 20 119/48 (71) 98 09/27/19 12:00 98.2 68 19 125/51 (75) 96 09/27/19 12:00 Mechanical Ventilator Mechanical Ventilator 09/27/19 12:00 100 09/27/19 12:00 20 Mechanical Ventilator 100 09/27/19 12:00 20 134/47 Mechanical Ventilator 100 09/27/19 12:00 68 09/27/19 11:37 98.2 09/27/19 11:30 69 20 132/51 (78) 97 09/27/19 11:15 68 20 123/49 (73) 97 09/27/19 11:08 20 134/47 Mechanical Ventilator 100 Objective: General Appearance: no apparent distress, bedridden middle age chronically ill looking female on vent AC 500-20-80% PEEP 5, sedated Lines, tubes and drains: left jugular HD catheter HEENT: normocephalic, atraumatic, anicteric, trach - Shiley #7 cuffed XLT, secretions moderate amount, velasco color , thick consistency Respiratory/Chest: no accessory muscle use, few scattered rhonchi bilaterally , Cardiovascular/Chest: normal rate, regular rhythm - SR on tele Abdomen: normal bowel sounds, non tender, soft, G tube Genitourinary/Rectal: Norman Extremities: no edema Skin Exam: warm/dry, multiple tattoos all over the body Neurologic: abnormal gait, sedated Musculoskeletal: atrophy - BLE Critical Care - Subjective ROS Limited/Unobtainable: Yes Interval Events: afebrile, leukocytosis resolved s/p L thoracentesis-900 ml CXR this am no evidecne of complication now down to Fio2 80 %, ABG stable remains on Versed and Fentanyl drips Condition: critical IV Access: central - L jugular HD catheter EKG Rhythm: Sinus Rhythm FI02: 80 Vent Support Breath Rate: 20 Vent Support Mode: AC Vent Tidal Volume: 500 Sputum Amount: Small PEEP: 5.0 PIP: 29 Secretions: small amount, thick consistency, yellow color Drips: Fentanyl gtt 300 mcg/hr, Versed 4 mg/ht Tube Feeding Amount: 0 I&O: Intake and Output 09/27/19 09/28/19 19:00 07:00 Intake Total 811 ml 489.46 ml Output Total 1085 ml 730 ml Balance -274 ml -240.54 ml Intake Free Water 10 ml 50 ml IV Total 801 ml 439.46 ml Output Urine Total 85 ml 180 ml Gastric Drainage Total 100 ml 550 ml Other 900 ml CXR: 09/27 RETROCARDIAC CONSOLIDATION WITH AIR BRONCHOGRAMS THAT MAY REPRESENT ATELECTASIS OF THE LEFT LOWER LOBE VERSUS INFILTRATE. Small left pleural effusion. Moderate vascular congestion. No pneumothorax. Cardiomegaly. Calcified aorta. Bang Guardado MD 09/28/196: Critical Care - Asmt/Plan Assessment/Plan: Patient seen and examined with [employer]. Agree with above A&P as it reflects our joint deliberations. CC Time: 40 min Yara Castro NP Sep 28, 2019 11:11 Bang Guardado MD Sep 28, 2019 19:26
[2019-09-28] MEDS ORDERED: TAZOBACTAM IV ONE (12:00)
[2019-09-28] MEDS ORDERED: CEFTOLOZANE IV ONE (12:00)
[2019-09-28] MEDS ORDERED: NS IV ONE (12:00)
[2019-09-28] MEDS ORDERED: NS 275ml ONE (12:40)
[2019-09-28] MEDS ORDERED: Tubing IV Secondary IV ONE (12:40)
--- NOTE | 2019-09-28 12:53 | Nephrology Progress Note ---
Assessment/Plan Problem List: (1) JAVIER (acute kidney injury) (2) Renal failure (ARF), acute on chronic (3) Dehydration (4) Electrolyte imbalance (5) Anemia (6) Respiratory failure, acute and chronic (7) COPD with exacerbation Assessment Patient is presented with sepsis and pneumonia and UTI Patient has acute renal failure, possible underlying chronic kidney failure Severe anemia Electrolyte imbalances: Hyponatremia, hypo-kalemia Chronic respiratory failure, COPD exacerbation Plan September 27: Lab reviewed. Last dialysis September 25. Continue to monitor renal parameters. Hemodialysis as needed. September 26: Lab reviewed. Dialyzed yesterday. Potassium supplement given. Medication list reviewed. Will observe renal parameters and arrange for dialysis as needed. September 25: Lab reviewed. Currently on hemodialysis. Tolerating well. Stable from renal standpoint of view. Blood pressure medication adjusted by increasing hydralazine. September 24: Lab reviewed. ABG reviewed. Both lab and ABG much improved. Patient was dialyzed yesterday. We will attempt dialysis tomorrow again. Will adjust that blood pressure medication dosages. September 23: Lab reviewed. ABG reviewed. Patient acidotic. IV bicarb 1 dose is given. Patient has dialysis catheter. Will order dialysis for ultrafiltration and correction of acid-base. Discussed with ERASMO Mohr. September 22: Labs reviewed. Potassium high. Kayexalate and Reglan given. Will discuss with the consultants regarding initiation of dialysis. September 21: Patient is being sedated. Labs reviewed. Potassium supplement discontinued. GFR 20. Continue per current treatment plan. Dialysis and ultrafiltration is a consideration. September 20: Patient periodically agitated. Labs reviewed. Creatinine 2.4. Medication reviewed. Continue per consultants. Calculated creatinine clearance 21. May need isolated ultrafiltration on dialysis. Will discuss with PMD. Meanwhile hemoglobin is lower, defer transfusion to PMD. September 19: DC IV fluid. Zaroxolyn via GT tube. Potassium supplement. Attempt to diurese. Chest CT as bilateral pleural effusion. If diuresis unsuccessful, will consider dialysis and ultrafiltration. September 18: Potassium supplement IV given. Hemoglobin stable. Patient remains full code. Continue per consultants. Previously: Potassium supplement IV Slow IV hydration Epogen subcu Adjust blood pressure medication IV fluid, rate adjusted Norman catheter, intake and output Monitor renal parameters Avoid nephrotoxic's Antibiotics Per orders 2D echocardiogram Kidney ultrasound Subjective ROS Limited/Unobtainable: Yes Objective Objective Last 24 Hour Vital Signs Date Time Temp Pulse Resp B/P (MAP) Pulse Ox O2 Delivery O2 Flow Rate FiO2 09/28/19 12:44 20 157/61 Mechanical Ventilator 80 09/28/19 12:15 72 20 137/49 (78) 98 09/28/19 12:00 75 09/28/19 12:00 98.2 74 20 139/55 (83) 99 09/28/19 12:00 80 09/28/19 12:00 Mechanical Ventilator Mechanical Ventilator 09/28/19 11:59 98.4 09/28/19 11:45 77 20 166/74 (104) 100 09/28/19 11:30 79 19 165/65 (98) 100 09/28/19 11:28 146/58 09/28/19 11:15 75 20 146/67 (93) 100 09/28/19 11:11 76 23 80 09/28/19 11:00 78 18 171/71 (104) 100 09/28/19 10:45 72 18 172/73 (106) 100 09/28/19 10:30 68 20 164/62 (96) 98 09/28/19 10:15 71 20 157/61 (93) 99 09/28/19 10:00 70 22 160/61 (94) 99 09/28/19 09:45 68 20 144/58 (86) 97 09/28/19 09:30 70 19 146/58 (87) 98 09/28/19 09:15 71 20 149/53 (85) 98 09/28/19 09:00 73 19 126/53 (77) 97 09/28/19 08:50 71 20 80 09/28/19 08:45 71 20 151/59 (89) 97 09/28/19 08:43 70 169/57 09/28/19 08:30 75 20 169/57 (94) 97 09/28/19 08:15 75 20 132/47 (75) 95 09/28/19 08:00 75 09/28/19 08:00 80 09/28/19 08:00 98.2 73 20 122/47 (72) 97 09/28/19 08:00 Mechanical Ventilator Mechanical Ventilator 09/28/19 07:45 70 21 141/50 (80) 98 09/28/19 07:30 61 20 154/65 (94) 96 09/28/19 07:29 68 20 100 Mechanical Ventilator 80 71 20 100 09/28/19 07:00 20 Mechanical Ventilator 80 09/28/19 07:00 20 135/52 Mechanical Ventilator 80 09/28/19 07:00 60 20 135/52 (79) 97 09/28/19 06:30 61 20 126/51 (76) 97 09/28/19 06:00 20 Mechanical Ventilator 80 09/28/19 06:00 20 148/54 Mechanical Ventilator 80 09/28/19 06:00 60 20 148/54 (85) 97 09/28/19 05:38 62 133/53 09/28/19 05:37 133/53 09/28/19 05:30 61 20 133/53 (79) 97 09/28/19 05:09 61 20 80 09/28/19 05:00 60 20 143/56 (85) 98 09/28/19 05:00 20 Mechanical Ventilator 80 09/28/19 05:00 20 143/56 Mechanical Ventilator 80 09/28/19 04:30 61 20 148/63 (91) 99 09/28/19 04:00 Mechanical Ventilator Mechanical Ventilator 09/28/19 04:00 20 Mechanical Ventilator 80 09/28/19 04:00 20 134/54 Mechanical Ventilator 80 09/28/19 04:00 80 09/28/19 04:00 98.0 60 20 134/54 (80) 98 09/28/19 04:00 66 09/28/19 03:30 62 21 149/54 (85) 98 09/28/19 03:27 71 23 80 09/28/19 03:00 22 Mechanical Ventilator 100 09/28/19 03:00 22 142/59 Mechanical Ventilator 100 09/28/19 03:00 64 22 142/59 (86) 100 09/28/19 02:30 59 20 133/46 (75) 99 09/28/19 02:16 20 147/48 Mechanical Ventilator 100 09/28/19 02:00 20 Mechanical Ventilator 100 09/28/19 02:00 20 147/48 Mechanical Ventilator 100 09/28/19 02:00 58 20 147/48 (81) 100 09/28/19 01:32 57 20 100 Mechanical Ventilator 100 68 20 100 09/28/19 01:30 57 20 140/48 (78) 100 09/28/19 01:00 60 20 129/54 (79) 100 09/28/19 01:00 20 Mechanical Ventilator 100 09/28/19 01:00 20 129/54 Mechanical Ventilator 100 09/28/19 00:30 57 20 134/50 (78) 100 09/28/19 00:08 133/45 09/28/19 00:00 100 09/28/19 00:00 Mechanical Ventilator Mechanical Ventilator 09/28/19 00:00 20 Mechanical Ventilator 100 09/28/19 00:00 20 133/45 Mechanical Ventilator 100 09/28/19 00:00 56 09/28/19 00:00 98.8 60 20 133/45 (74) 100 09/27/19 23:36 66 20 100 09/27/19 23:30 57 20 147/80 (102) 100 09/27/19 23:00 21 Mechanical Ventilator 100 09/27/19 23:00 21 126/44 Mechanical Ventilator 100 09/27/19 23:00 57 21 126/44 (71) 99 09/27/19 22:30 59 20 127/45 (72) 100 09/27/19 22:04 20 Mechanical Ventilator 100 09/27/19 22:00 20 124/45 Mechanical Ventilator 100 09/27/19 22:00 64 20 124/45 (71) 100 09/27/19 21:50 70 22 100 09/27/19 21:42 70 154/48 09/27/19 21:30 69 20 150/48 (82) 100 09/27/19 21:00 63 20 137/50 (79) 100 09/27/19 21:00 20 Mechanical Ventilator 100 09/27/19 21:00 20 137/50 Mechanical Ventilator 100 09/27/19 20:32 62 126/60 09/27/19 20:30 63 20 141/46 (77) 99 09/27/19 20:15 62 20 126/50 (75) 97 09/27/19 20:00 97.8 61 19 139/45 (76) 97 09/27/19 20:00 100 09/27/19 20:00 Mechanical Ventilator Mechanical Ventilator 09/27/19 20:00 19 Mechanical Ventilator 100 09/27/19 20:00 19 139/45 Mechanical Ventilator 100 09/27/19 20:00 60 09/27/19 19:38 64 20 100 Mechanical Ventilator 100 68 20 100 09/27/19 19:00 59 20 129/46 (73) 100 09/27/19 19:00 20 Mechanical Ventilator 100 09/27/19 19:00 20 129/46 Mechanical Ventilator 100 09/27/19 18:45 57 20 129/46 (73) 100 09/27/19 18:30 58 20 125/38 (67) 100 09/27/19 18:15 57 20 120/39 (66) 100 09/27/19 18:00 Mechanical Ventilator Mechanical Ventilator 09/27/19 18:00 59 20 129/40 (69) 100 09/27/19 18:00 21 Mechanical Ventilator 100 09/27/19 18:00 20 129/40 Mechanical Ventilator 100 09/27/19 18:00 100 09/27/19 17:45 59 20 136/41 (72) 100 09/27/19 17:38 21 127/41 Mechanical Ventilator 100 09/27/19 17:30 62 20 127/41 (69) 100 09/27/19 17:28 66 22 Mechanical Ventilator 100 09/27/19 17:15 72 21 158/124 (135) 100 09/27/19 17:00 70 19 156/111 (126) 99 09/27/19 17:00 21 Mechanical Ventilator 100 09/27/19 17:00 21 156/111 Mechanical Ventilator 100 09/27/19 16:45 62 20 123/84 (97) 96 09/27/19 16:30 61 20 132/52 (78) 98 09/27/19 16:15 62 19 136/109 (118) 99 09/27/19 16:00 98.0 63 20 124/50 (74) 98 09/27/19 16:00 65 09/27/19 16:00 20 Mechanical Ventilator 100 09/27/19 16:00 20 124/50 Mechanical Ventilator 100 09/27/19 16:00 Mechanical Ventilator Mechanical Ventilator 09/27/19 15:45 64 20 129/45 (73) 99 09/27/19 15:30 65 20 144/65 (91) 100 09/27/19 15:15 68 20 143/53 (83) 100 09/27/19 15:00 20 Mechanical Ventilator 100 09/27/19 15:00 20 128/50 Mechanical Ventilator 100 09/27/19 15:00 67 20 128/50 (76) 99 09/27/19 14:52 67 20 Mechanical Ventilator 100 09/27/19 14:45 70 21 125/52 (76) 100 09/27/19 14:30 73 20 142/51 (81) 100 09/27/19 14:15 76 20 164/130 (141) 97 09/27/19 14:00 72 19 169/80 (109) 96 09/27/19 14:00 20 Mechanical Ventilator 100 09/27/19 14:00 21 169/80 Mechanical Ventilator 100 09/27/19 13:45 66 20 143/51 (81) 96 09/27/19 13:30 66 20 133/51 (78) 98 09/27/19 13:30 65 20 98 Mechanical Ventilator 100 68 20 100 09/27/19 13:15 64 20 127/51 (76) 97 09/27/19 13:08 124/49 09/27/19 13:08 64 128/49 09/27/19 13:00 64 20 128/49 (75) 97 09/27/19 13:00 21 Mechanical Ventilator 100 09/27/19 13:00 21 143/51 Mechanical Ventilator 100 Intake and Output 09/27/19 09/28/19 19:00 07:00 Intake Total 811 ml 489.46 ml Output Total 1085 ml 730 ml Balance -274 ml -240.54 ml Intake Free Water 10 ml 50 ml IV Total 801 ml 439.46 ml Output Urine Total 85 ml 180 ml Gastric Drainage Total 100 ml 550 ml Other 900 ml Current Medications Medications (Trade) Dose Ordered Sig/Penny Route PRN Reason Start Time Stop Time Status Last Admin Dose Admin Acetaminophen (Tylenol) 325 mg Q6H PRN GT Temp >100.5 09/23/19 10:45 10/23/19 10:44 09/23/19 18:55 Acetylcysteine (Mucomyst) 200 mg Q6HRT [facility] 09/18/19 19:00 12/17/19 18:59 09/28/19 07:49 Albuterol/ Ipratropium (Albuterol/ Ipratropium) 3 ml Q6HRT [facility] 09/25/19 13:00 09/30/19 12:59 09/28/19 07:50 Ceftolozane/ Tazobactam 0.45 gm/Sodium Chloride 110 ml @ 110 mls/hr Q8H IV 09/28/19 20:00 10/05/19 19:59 Ceftolozane/ Tazobactam 2.25 gm/Sodium Chloride 110 ml @ 110 mls/hr ONCE ONCE IV 09/28/19 12:00 09/28/19 12:59 09/28/19 11:41 Chlorhexidine Gluconate (Ling-Hex 2%) 1 applic DAILY@2000 TOPIC 09/23/19 20:00 12/22/19 19:59 09/27/19 19:59 Diltiazem HCl (Cardizem Tab) 30 mg EVERY 8 HOURS GT 09/25/19 14:00 10/15/19 11:59 09/28/19 05:38 Docusate Sodium (Colace) 100 mg TID GT 09/17/19 13:00 10/15/19 08:59 09/28/19 08:42 Epoetin Gelacio (Epoetin Gelacio(ESRD on dialysis)) 10,000 unit MON-MON-MON SUBQ 09/25/19 21:00 12/24/19 20:59 09/27/19 20:31 Fentanyl Citrate 250 ml @ 0 mls/hr Q24H IV 09/21/19 09:30 09/29/19 09:29 09/28/19 12:44 Heparin Sodium (Porcine) (Heparin 5000 units/ml) 5,000 units EVERY 12 HOURS SUBQ 09/17/19 21:00 10/30/19 08:59 09/28/19 08:43 Hydralazine HCl (Apresoline) 10 mg Q4H PRN IV BP over 160 systolic 09/17/19 11:15 12/14/19 11:14 09/24/19 15:55 Hydralazine HCl (Apresoline) 50 mg Q6HR GT 09/26/19 18:00 12/15/19 17:59 09/28/19 11:28 Lansoprazole (Prevacid) 30 mg Q12HR GT 09/27/19 21:00 10/27/19 20:59 09/28/19 08:42 Metoprolol Tartrate (Lopressor) 25 mg EVERY 12 HOURS GT 09/25/19 21:00 12/14/19 20:59 09/28/19 08:43 Midazolam HCl (Versed 2mg/2ml vial) 1 mg Q4H PRN IVP For Anxiety 09/21/19 09:30 12/20/19 09:29 09/27/19 08:57 Midazolam HCl 50 mg/Sodium Chloride 100 ml @ 0 mls/hr Q24H PRN IV Agitation 09/26/19 17:35 09/29/19 17:34 09/27/19 22:04 Olanzapine (ZyPREXA) 2.5 mg DAILY GT 09/18/19 09:00 10/30/19 08:59 09/28/19 08:42 Sertraline HCl (Zoloft) 100 mg BEDTIME GT 09/17/19 21:00 10/15/19 20:59 09/27/19 20:32 Tramadol HCl (Ultram) 25 mg Q6HR GT 09/27/19 09:45 10/04/19 09:44 09/28/19 11:29 Vancomycin HCl ([facility] pharmacy to dose) 1 ea DAILY PRN MISC Per rx protocol 09/18/19 09:00 10/16/19 13:44 Laboratory Tests 09/27/19 14:05: Body Fluid Source Thoracentesis, Body Fluid Volume 24, Body Fluid Appearance Hazy, Body Fluid pH 8.0, Body Fluid RBC 1590, Body Fluid Total Nucleated Cells 67, Body Fluid Polynuclear WBCs (%) 30, Body Fluid Mononuclear WBCs (%) 32, Body Fluid Mesothelial Cells (%) 38, Body Fluid Lactate Dehydrogenase [Pending] 09/28/19 04:26: White Blood Count 8.7#, Red Blood Count 2.30L, Hemoglobin 7.2L, Hematocrit 22.7L , Mean Corpuscular Volume 99, Mean Corpuscular Hemoglobin 31.3H, Mean Corpuscular Hemoglobin Concent 31.8L, Red Cell Distribution Width 16.6H, Platelet Count 242, Mean Platelet Volume 6.1L, Neutrophils (%) (Auto) , Lymphocytes (%) (Auto) , Monocytes (%) (Auto) , Eosinophils (%) (Auto) , Basophils (%) (Auto) , Differential Total Cells Counted 100, Neutrophils % ( Manual) 76H, Lymphocytes % (Manual) 16L, Monocytes % (Manual) 6, Eosinophils % ( Manual) 1, Basophils % (Manual) 1, Band Neutrophils 0, Platelet Estimate Adequate, Platelet Morphology Normal, Hypochromasia 3+, Anisocytosis 1+, Sodium Level 140, Potassium Level 3.7, Chloride Level 100, Carbon Dioxide Level 29, Anion Gap 11, Blood Urea Nitrogen 70H, Creatinine 2.5H, Estimat Glomerular Filtration Rate 20.6, Glucose Level 57L, Uric Acid 5.8, Calcium Level 8.9, Phosphorus Level 5.0H, Magnesium Level 2.4, Iron Level 30L, Total Iron Binding Capacity 155L, Percent Iron Saturation 19, Unsaturated Iron Binding 125, Ferritin 1341H, Total Bilirubin 0.3, Aspartate Amino Transf (AST/SGOT) 21, Alanine Aminotransferase (ALT/SGPT) 7L, Alkaline Phosphatase 142H, Troponin I 0.054, C-Reactive Protein, Quantitative 10.0H, Pro-B-Type Natriuretic Peptide > [id number], Total Protein 6.2L, Albumin 1.9L, Globulin 4.3, Albumin/Globulin Ratio 0.4L, Vitamin B12 Level 1427H, Folate 30.5 09/28/19 07:47: Arterial Blood pH 7.454H, Arterial Blood Partial Pressure CO2 41.2, Arterial Blood Partial Pressure O2 69.3L, Arterial Blood HCO3 28.3H, Arterial Blood Oxygen Saturation 93.3L, Arterial Blood Base Excess 4.0H, Rojas Test Positive Height (Feet): 5 Height (Inches): 5.00 Weight (Pounds): 133 General Appearance: no apparent distress EENT: other - Vented Cardiovascular: normal rate Respiratory/Chest: decreased breath sounds Abdomen: distended Objective No change Johnny Houston MD Sep 28, 2019 12:53
--- NOTE | 2019-09-28 13:08 | Infectious Diseases Prog Note ---
Assessment/Plan 49yo F with: Acute hypoxic resp failure: Now on vent, worsening, FiO2 100%> 80% 09/27 Pneumonia, COVID19 neg x3 - worsening 09/26 CXR: Worsening R perihilar opacity 09/24 CXR: Previously demonstrated right lateral basilar lucency is no longer evident, was presumably a skin fold artifact. Bilateral infiltrates and left pleural effusion are probably unchanged allowing for slight differences in technique. 09/22 Resp cx + MDR PsA (S-gent; I-colistin; R-levofloxacin, Zosyn, angelo) 09/22 BCx NTD 09/22 CXR: worsening BL pna 09/22 UA w/ persistent pyuria, now on HD, UCx +VRE, most likely colonizer as improving wo tx for this 09/19 V/Q scan, low probability of PE 09/18 Rapid COVID PCR neg 09/18 CT chest: Markedly suboptimal examination due to lack of IV contrast material. Bilateral pleural effusions, right greater than left, with bilateral lower lobe consolidation or volume loss. Ground glass densities in the upper lobes bilaterally. This is not specific. Tracheostomy. Increased superior mediastinal density. Stability of adenopathy cannot be excluded. Atherosclerotic change. Gastrostomy. Ascites. Left renal stent with left hydronephrosis and renal atrophy. 09/17 Chest US: Trace right and small left pleural effusions. No safe window identified for bedside thoracentesis. Note that the majority of the left pleural effusion is subpulmonic. 09/16 CXR: Worsening of right lung infiltrates and right effusion. V. duplex: NO DVT D-dimer elevated 09/15 Rapid COVID PCR neg 09/15 Sp cx ESBL P. mirablis 09/14 CXR: Bilateral airspace opacities, preferentially involving the right lung, consistent with multifocal infiltrate. Trace bilateral pleural effusions. No pneumothorax. Rapid COVID PCR neg GPC bacteremia, real vs contaminant; does have hx of infected PPM- could be a possibility- ro endocarditis 09/14 Bcx 03/19 S. epidermis; 09/15 Bcx NTD 2d echo: no vegetations seen UTI 09/14 u/a wbc tnct, nit neg, leuk +3; ucx >100k MDR P. stuarti (S Ceftriaxone, Meropenem) 09/22 UA w/ ongoing pyuria, unchanged Unstageable sacral ulceration Afebrile Leukocytosis, mild; fluctuates bt 12-13 JAVIER on CKD --> now on HD Renal US: Limited exam due to abdominal ascites and shadowing from bowel gas. CT recommended for more sensitive evaluation. Moderate right hydronephrosis. Increased renal parenchymal echogenicity suggesting intrinsic/ medical renal disease. Question indwelling left ureteral stent versus artifact. Bladder not visualized. 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 epi-11/2018, sp > 6weeks IV vancomycin 11/27 SP ABBIE: no evidence for vegetation on any of the valves 11/26/18 SP PPM removal: OR findings:The fibrous capsule enclosing the generator was then opened and there was a [id number] amount of yellowish fluid drainage. The generator was then removed.Atrial and ventricular leads were detached. The necrotic tissue of the pocket was then removed and the pocket was flushed with an antibiotic solution. Capsule, wound tissue and lead tip cx: Neg 2d echo: no vegetation seen US chest: 4.6 x 3.4 x 0.9 cm hypoechoic/anechoic area overlying left chest pacemaker power pack. This could represent either a discrete fluid collection or a focal area of very edematous tissue. Infected fluid pocket also possible. 11/18 Bcx 3/4 S. epi; 11/20 Bcx neg; 11/24 Bcx Neg; 11/27 Bcx Neg Hx of PNA 11/2019? sp cx PsA (arnett S), ABC (I Ceftriaxone; otherwise negative) Sp cx MRSA, ABC (I Ceftriaxone; otherwise S) PMH: Afib HTN Dysphagia sp GT Aortic dissection s/p repair 2017, S/p PPM Parkinson's Disease Schizophrenia Anxiety COPD Chronic resp failure s/p trach Hx of tracheal bleeding [place] resident ([facility]) Plan: Start Zerbaxa #1 for MDR PsA Cont gentamicin per pharmacy #2 for now as improved and awaiting sensitivites for Zerbaxa Dc meropenem #12 Continue vancomycin #13/14 given prior Staph epi in BCx, though possible contaminant also CXR today - worsening pna BCx x2 today Asked Pharmacy for Zerbaxa approval for MDR PsA, pending approval, non- formulary form signed D/w micro about sending MDR PsA out for further sensi to Zerbaxa and Avycaz, [facility] [place] - will have to f/u with micro lab to make sure this is done ([id number]) --called micro lab 09/27- no one answered Aggressive volume removal as tolerated by HD, BNP >35,000 Trend leukocytosis 09/25 SP angelo #10 09/16 SP Cefepime #3, Levaquin #3 -Monitor CBC/CMP, temperatures -ICU/ trach/ peg care -Aspiration precautions D/w RN and pharmacy and micro lab at length Thank you for this consultation. Will continue to follow along with you. Subjective Allergies: Coded Allergies: No Known Allergies (Unverified , 10/10/17) afebrile >48hrs leukocytosis resolved Fio2 80% Objective Last 24 Hour Vital Signs Date Time Temp Pulse Resp B/P (MAP) Pulse Ox O2 Delivery O2 Flow Rate FiO2 09/28/19 12:44 20 157/61 Mechanical Ventilator 80 09/28/19 12:15 72 20 137/49 (78) 98 09/28/19 12:00 75 09/28/19 12:00 98.2 74 20 139/55 (83) 99 09/28/19 12:00 80 09/28/19 12:00 Mechanical Ventilator Mechanical Ventilator 09/28/19 11:59 98.4 09/28/19 11:45 77 20 166/74 (104) 100 09/28/19 11:30 79 19 165/65 (98) 100 09/28/19 11:28 146/58 09/28/19 11:15 75 20 146/67 (93) 100 09/28/19 11:11 76 23 80 09/28/19 11:00 78 18 171/71 (104) 100 09/28/19 10:45 72 18 172/73 (106) 100 09/28/19 10:30 68 20 164/62 (96) 98 09/28/19 10:15 71 20 157/61 (93) 99 09/28/19 10:00 70 22 160/61 (94) 99 09/28/19 09:45 68 20 144/58 (86) 97 09/28/19 09:30 70 19 146/58 (87) 98 09/28/19 09:15 71 20 149/53 (85) 98 09/28/19 09:00 73 19 126/53 (77) 97 09/28/19 08:50 71 20 80 09/28/19 08:45 71 20 151/59 (89) 97 09/28/19 08:43 70 169/57 09/28/19 08:30 75 20 169/57 (94) 97 09/28/19 08:15 75 20 132/47 (75) 95 09/28/19 08:00 75 09/28/19 08:00 80 09/28/19 08:00 98.2 73 20 122/47 (72) 97 09/28/19 08:00 Mechanical Ventilator Mechanical Ventilator 09/28/19 07:45 70 21 141/50 (80) 98 09/28/19 07:30 61 20 154/65 (94) 96 09/28/19 07:29 68 20 100 Mechanical Ventilator 80 71 20 100 09/28/19 07:00 20 Mechanical Ventilator 80 09/28/19 07:00 20 135/52 Mechanical Ventilator 80 09/28/19 07:00 60 20 135/52 (79) 97 09/28/19 06:30 61 20 126/51 (76) 97 09/28/19 06:00 20 Mechanical Ventilator 80 09/28/19 06:00 20 148/54 Mechanical Ventilator 80 09/28/19 06:00 60 20 148/54 (85) 97 09/28/19 05:38 62 133/53 09/28/19 05:37 133/53 09/28/19 05:30 61 20 133/53 (79) 97 09/28/19 05:09 61 20 80 09/28/19 05:00 60 20 143/56 (85) 98 09/28/19 05:00 20 Mechanical Ventilator 80 09/28/19 05:00 20 143/56 Mechanical Ventilator 80 09/28/19 04:30 61 20 148/63 (91) 99 09/28/19 04:00 Mechanical Ventilator Mechanical Ventilator 09/28/19 04:00 20 Mechanical Ventilator 80 09/28/19 04:00 20 134/54 Mechanical Ventilator 80 09/28/19 04:00 80 09/28/19 04:00 98.0 60 20 134/54 (80) 98 09/28/19 04:00 66 09/28/19 03:30 62 21 149/54 (85) 98 09/28/19 03:27 71 23 80 09/28/19 03:00 22 Mechanical Ventilator 100 09/28/19 03:00 22 142/59 Mechanical Ventilator 100 09/28/19 03:00 64 22 142/59 (86) 100 09/28/19 02:30 59 20 133/46 (75) 99 09/28/19 02:16 20 147/48 Mechanical Ventilator 100 09/28/19 02:00 20 Mechanical Ventilator 100 09/28/19 02:00 20 147/48 Mechanical Ventilator 100 09/28/19 02:00 58 20 147/48 (81) 100 09/28/19 01:32 57 20 100 Mechanical Ventilator 100 68 20 100 09/28/19 01:30 57 20 140/48 (78) 100 09/28/19 01:00 60 20 129/54 (79) 100 09/28/19 01:00 20 Mechanical Ventilator 100 09/28/19 01:00 20 129/54 Mechanical Ventilator 100 09/28/19 00:30 57 20 134/50 (78) 100 09/28/19 00:08 133/45 09/28/19 00:00 100 09/28/19 00:00 Mechanical Ventilator Mechanical Ventilator 09/28/19 00:00 20 Mechanical Ventilator 100 09/28/19 00:00 20 133/45 Mechanical Ventilator 100 09/28/19 00:00 56 09/28/19 00:00 98.8 60 20 133/45 (74) 100 09/27/19 23:36 66 20 100 09/27/19 23:30 57 20 147/80 (102) 100 09/27/19 23:00 21 Mechanical Ventilator 100 09/27/19 23:00 21 126/44 Mechanical Ventilator 100 09/27/19 23:00 57 21 126/44 (71) 99 09/27/19 22:30 59 20 127/45 (72) 100 09/27/19 22:04 20 Mechanical Ventilator 100 09/27/19 22:00 20 124/45 Mechanical Ventilator 100 09/27/19 22:00 64 20 124/45 (71) 100 09/27/19 21:50 70 22 100 09/27/19 21:42 70 154/48 09/27/19 21:30 69 20 150/48 (82) 100 09/27/19 21:00 63 20 137/50 (79) 100 09/27/19 21:00 20 Mechanical Ventilator 100 09/27/19 21:00 20 137/50 Mechanical Ventilator 100 09/27/19 20:32 62 126/60 09/27/19 20:30 63 20 141/46 (77) 99 09/27/19 20:15 62 20 126/50 (75) 97 09/27/19 20:00 97.8 61 19 139/45 (76) 97 09/27/19 20:00 100 09/27/19 20:00 Mechanical Ventilator Mechanical Ventilator 09/27/19 20:00 19 Mechanical Ventilator 100 09/27/19 20:00 19 139/45 Mechanical Ventilator 100 09/27/19 20:00 60 09/27/19 19:38 64 20 100 Mechanical Ventilator 100 68 20 100 09/27/19 19:00 59 20 129/46 (73) 100 09/27/19 19:00 20 Mechanical Ventilator 100 09/27/19 19:00 20 129/46 Mechanical Ventilator 100 09/27/19 18:45 57 20 129/46 (73) 100 09/27/19 18:30 58 20 125/38 (67) 100 09/27/19 18:15 57 20 120/39 (66) 100 09/27/19 18:00 Mechanical Ventilator Mechanical Ventilator 09/27/19 18:00 59 20 129/40 (69) 100 09/27/19 18:00 21 Mechanical Ventilator 100 09/27/19 18:00 20 129/40 Mechanical Ventilator 100 09/27/19 18:00 100 09/27/19 17:45 59 20 136/41 (72) 100 09/27/19 17:38 21 127/41 Mechanical Ventilator 100 09/27/19 17:30 62 20 127/41 (69) 100 09/27/19 17:28 66 22 Mechanical Ventilator 100 09/27/19 17:15 72 21 158/124 (135) 100 09/27/19 17:00 70 19 156/111 (126) 99 09/27/19 17:00 21 Mechanical Ventilator 100 09/27/19 17:00 21 156/111 Mechanical Ventilator 100 09/27/19 16:45 62 20 123/84 (97) 96 09/27/19 16:30 61 20 132/52 (78) 98 09/27/19 16:15 62 19 136/109 (118) 99 09/27/19 16:00 98.0 63 20 124/50 (74) 98 09/27/19 16:00 65 09/27/19 16:00 20 Mechanical Ventilator 100 09/27/19 16:00 20 124/50 Mechanical Ventilator 100 09/27/19 16:00 Mechanical Ventilator Mechanical Ventilator 09/27/19 15:45 64 20 129/45 (73) 99 09/27/19 15:30 65 20 144/65 (91) 100 09/27/19 15:15 68 20 143/53 (83) 100 09/27/19 15:00 20 Mechanical Ventilator 100 09/27/19 15:00 20 128/50 Mechanical Ventilator 100 09/27/19 15:00 67 20 128/50 (76) 99 09/27/19 14:52 67 20 Mechanical Ventilator 100 09/27/19 14:45 70 21 125/52 (76) 100 09/27/19 14:30 73 20 142/51 (81) 100 09/27/19 14:15 76 20 164/130 (141) 97 09/27/19 14:00 72 19 169/80 (109) 96 09/27/19 14:00 20 Mechanical Ventilator 100 09/27/19 14:00 21 169/80 Mechanical Ventilator 100 09/27/19 13:45 66 20 143/51 (81) 96 09/27/19 13:30 66 20 133/51 (78) 98 09/27/19 13:30 65 20 98 Mechanical Ventilator 100 68 20 100 09/27/19 13:15 64 20 127/51 (76) 97 09/27/19 13:08 124/49 09/27/19 13:08 64 128/49 09/27/19 13:00 64 20 128/49 (75) 97 09/27/19 13:00 21 Mechanical Ventilator 100 09/27/19 13:00 21 143/51 Mechanical Ventilator 100 Height (Feet): 5 Height (Inches): 5.00 Weight (Pounds): 133 Cardiovascular: RSR Respiratory: decreased breath sounds Abdomen: soft, non-tender, present bowel sounds Extremities: no edema, no tenderness, no cyanosis Laboratory Tests Test 09/27/19 14:05 09/28/19 04:26 09/28/19 07:47 Body Fluid Source Thoracentesis Body Fluid Volume 24 mL Body Fluid Appearance Hazy (Clear) Body Fluid pH 8.0 Body Fluid RBC 1590 /CUMM Body Fluid Total Nucleated Cells 67 /CUMM Body Fluid Polynuclear WBCs (%) 30 % Body Fluid Mononuclear WBCs (%) 32 % Body Fluid Mesothelial Cells (%) 38 % Body Fluid Lactate Dehydrogenase Pending White Blood Count 8.7 K/UL (4.8-10.8) # Red Blood Count 2.30 M/UL (4.20-5.40) L Hemoglobin 7.2 G/DL (12.0-16.0) L Hematocrit 22.7 % (37.0-47.0) L Mean Corpuscular Volume 99 FL (80-99) Mean Corpuscular Hemoglobin 31.3 PG (27.0-31.0) H Mean Corpuscular Hemoglobin Concent 31.8 G/DL (32.0-36.0) L Red Cell Distribution Width 16.6 % (11.6-14.8) H Platelet Count 242 K/UL (150-450) Mean Platelet Volume 6.1 FL (6.5-10.1) L Neutrophils (%) (Auto) % (45.0-75.0) Lymphocytes (%) (Auto) % (20.0-45.0) Monocytes (%) (Auto) % (1.0-10.0) Eosinophils (%) (Auto) % (0.0-3.0) Basophils (%) (Auto) % (0.0-2.0) Differential Total Cells Counted 100 Neutrophils % (Manual) 76 % (45-75) H Lymphocytes % (Manual) 16 % (20-45) L Monocytes % (Manual) 6 % (1-10) Eosinophils % (Manual) 1 % (0-3) Basophils % (Manual) 1 % (0-2) Band Neutrophils 0 % (0-8) Platelet Estimate Adequate Platelet Morphology Normal Hypochromasia 3+ Anisocytosis 1+ Sodium Level 140 MMOL/L (136-145) Potassium Level 3.7 MMOL/L (3.5-5.1) Chloride Level 100 MMOL/L (98-107) Carbon Dioxide Level 29 MMOL/L (21-32) Anion Gap 11 mmol/L (5-15) Blood Urea Nitrogen 70 mg/dL (7-18) H Creatinine 2.5 MG/DL (0.55-1.30) H Estimat Glomerular Filtration Rate 20.6 mL/min (>60) Glucose Level 57 MG/DL (74-106) L Uric Acid 5.8 MG/DL (2.6-7.2) Calcium Level 8.9 MG/DL (8.5-10.1) Phosphorus Level 5.0 MG/DL (2.5-4.9) H Magnesium Level 2.4 MG/DL (1.8-2.4) Iron Level 30 ug/dL (50-175) L Total Iron Binding Capacity 155 ug/dL (250-450) L Percent Iron Saturation 19 % (15-50) Unsaturated Iron Binding 125 ug/dL (112-346) Ferritin 1341 NG/ML (8-388) H Total Bilirubin 0.3 MG/DL (0.2-1.0) Aspartate Amino Transf (AST/SGOT) 21 U/L (15-37) Alanine Aminotransferase (ALT/SGPT) 7 U/L (12-78) L Alkaline Phosphatase 142 U/L (46-116) H Troponin I 0.054 ng/mL (0.000-0.056) C-Reactive Protein, Quantitative 10.0 mg/dL (0.00-0.90) H Pro-B-Type Natriuretic Peptide > 63775 pg/mL (0-125) H Total Protein 6.2 G/DL (6.4-8.2) L Albumin 1.9 G/DL (3.4-5.0) L Globulin 4.3 g/dL Albumin/Globulin Ratio 0.4 (1.0-2.7) L Vitamin B12 Level 1427 PG/ML (193-986) H Folate 30.5 NG/ML (8.6-58.9) Arterial Blood pH 7.454 (7.350-7.450) Arterial Blood Partial Pressure CO2 41.2 mmHg (35.0-45.0) Arterial Blood Partial Pressure O2 69.3 mmHg (75.0-100.0) L Arterial Blood HCO3 28.3 mmol/L (22.0-26.0) H Arterial Blood Oxygen Saturation 93.3 % (95-100) L Arterial Blood Base Excess 4.0 (-2-2) H Rojas Test Positive Current Medications Medications (Trade) Dose Ordered Sig/Penny Route PRN Reason Start Time Stop Time Status Last Admin Dose Admin Acetaminophen (Tylenol) 325 mg Q6H PRN GT Temp >100.5 09/23/19 10:45 10/23/19 10:44 09/23/19 18:55 Acetylcysteine (Mucomyst) 200 mg Q6HRT [facility] 09/18/19 19:00 12/17/19 18:59 09/28/19 07:49 Albuterol/ Ipratropium (Albuterol/ Ipratropium) 3 ml Q6HRT [facility] 09/25/19 13:00 09/30/19 12:59 09/28/19 07:50 Ceftolozane/ Tazobactam 0.45 gm/Sodium Chloride 110 ml @ 110 mls/hr Q8H IV 09/28/19 20:00 10/05/19 19:59 Ceftolozane/ Tazobactam 2.25 gm/Sodium Chloride 110 ml @ 110 mls/hr ONCE ONCE IV 09/28/19 12:00 09/28/19 12:59 09/28/19 11:41 Chlorhexidine Gluconate (Ling-Hex 2%) 1 applic DAILY@1999 TOPIC 09/23/19 20:00 12/22/19 19:59 09/27/19 19:59 Diltiazem HCl (Cardizem Tab) 30 mg EVERY 8 HOURS GT 09/25/19 14:00 10/15/19 11:59 09/28/19 05:38 Docusate Sodium (Colace) 100 mg TID GT 09/17/19 13:00 10/15/19 08:59 09/28/19 08:42 Epoetin Gelacio (Epoetin Gelacio(ESRD on dialysis)) 10,000 unit SUBQ 09/25/19 21:00 12/24/19 20:59 09/27/19 20:31 Fentanyl Citrate 250 ml @ 0 mls/hr Q24H IV 09/21/19 09:30 09/29/19 09:29 09/28/19 12:44 Heparin Sodium (Porcine) (Heparin 5000 units/ml) 5,000 units EVERY 12 HOURS SUBQ 09/17/19 21:00 10/30/19 08:59 09/28/19 08:43 Hydralazine HCl (Apresoline) 10 mg Q4H PRN IV BP over 160 systolic 09/17/19 11:15 12/14/19 11:14 09/24/19 15:55 Hydralazine HCl (Apresoline) 50 mg Q6HR GT 09/26/19 18:00 12/15/19 17:59 09/28/19 11:28 Lansoprazole (Prevacid) 30 mg Q12HR GT 09/27/19 21:00 10/27/19 20:59 09/28/19 08:42 Metoprolol Tartrate (Lopressor) 25 mg EVERY 12 HOURS GT 09/25/19 21:00 12/14/19 20:59 09/28/19 08:43 Midazolam HCl (Versed 2mg/2ml vial) 1 mg Q4H PRN IVP For Anxiety 09/21/19 09:30 12/20/19 09:29 09/27/19 08:57 Midazolam HCl 50 mg/Sodium Chloride 100 ml @ 0 mls/hr Q24H PRN IV Agitation 09/26/19 17:35 09/29/19 17:34 09/27/19 22:04 Olanzapine (ZyPREXA) 2.5 mg DAILY GT 09/18/19 09:00 10/30/19 08:59 09/28/19 08:42 Sertraline HCl (Zoloft) 100 mg BEDTIME GT 09/17/19 21:00 10/15/19 20:59 09/27/19 20:32 Tramadol HCl (Ultram) 25 mg Q6HR GT 09/27/19 09:45 10/04/19 09:44 09/28/19 11:29 Vancomycin HCl (Vanco pharmacy to dose) 1 ea DAILY PRN MISC Per rx protocol 09/18/19 09:00 10/16/19 13:44 Doreen Nino M.D. Sep 28, 2019 13:08
[2019-09-28] MEDS ORDERED: Gentamicin Rx monitoring MISC PRN (13:15)
[2019-09-28] MEDS: Midazolam for drip 50 MG in NS 90 ML IV PRN (13:33)
[2019-09-28] MEDS ORDERED: [UNRECOGNIZED DRUG - OTHER] IVPB SCH (14:00)
--- NOTE | 2019-09-28 18:35 | Surgery Progress Note ---
Surgery Progress Note Subjective Additional Comments no acute events Objective Last 24 Hour Vital Signs Date Time Temp Pulse Resp B/P (MAP) Pulse Ox O2 Delivery O2 Flow Rate FiO2 09/28/19 18:00 20 Mechanical Ventilator 80 09/28/19 18:00 20 138/53 Mechanical Ventilator 80 09/28/19 18:00 69 20 130/54 (79) 96 09/28/19 17:44 98.2 09/28/19 17:14 147/58 09/28/19 17:00 20 Mechanical Ventilator 80 09/28/19 17:00 20 138/53 Mechanical Ventilator 80 09/28/19 17:00 73 19 122/55 (77) 96 09/28/19 16:45 75 20 123/61 (81) 94 09/28/19 16:42 76 27 80 09/28/19 16:30 75 21 133/60 (84) 95 09/28/19 16:15 76 21 138/65 (89) 94 09/28/19 16:00 71 09/28/19 16:00 80 09/28/19 16:00 98.6 74 20 143/68 (93) 94 09/28/19 16:00 24 Mechanical Ventilator 80 09/28/19 16:00 21 147/70 Mechanical Ventilator 80 09/28/19 16:00 Mechanical Ventilator Mechanical Ventilator 09/28/19 15:45 72 20 147/70 (95) 96 09/28/19 15:30 70 20 154/64 (94) 95 09/28/19 15:15 71 21 170/69 (102) 97 09/28/19 15:09 72 21 80 09/28/19 15:00 24 80 09/28/19 15:00 20 154/75 Mechanical Ventilator 09/28/19 15:00 71 20 155/72 (99) 69 09/28/19 14:45 73 20 154/75 (101) 86 09/28/19 14:30 79 22 164/86 (112) 99 09/28/19 14:15 79 19 150/60 (90) 98 09/28/19 14:00 76 19 155/59 (91) 100 09/28/19 14:00 24 Mechanical Ventilator 80 09/28/19 14:00 20 149/62 Mechanical Ventilator 80 09/28/19 13:45 74 20 149/62 (91) 99 09/28/19 13:34 75 147/55 09/28/19 13:33 24 Mechanical Ventilator 80 09/28/19 13:30 73 20 139/55 (83) 100 09/28/19 13:20 73 20 100 Mechanical Ventilator 80 76 20 100 09/28/19 13:15 74 20 141/54 (83) 99 09/28/19 13:00 20 Mechanical Ventilator 80 09/28/19 13:00 20 137/49 Mechanical Ventilator 80 09/28/19 13:00 77 22 155/60 (91) 99 09/28/19 12:45 73 20 140/57 (84) 97 09/28/19 12:44 20 157/61 Mechanical Ventilator 80 09/28/19 12:30 72 20 137/49 (78) 98 09/28/19 12:15 72 20 137/49 (78) 98 09/28/19 12:00 75 09/28/19 12:00 98.2 74 20 139/55 (83) 99 09/28/19 12:00 22 Mechanical Ventilator 80 09/28/19 12:00 80 09/28/19 12:00 Mechanical Ventilator Mechanical Ventilator 09/28/19 11:45 77 20 166/74 (104) 100 09/28/19 11:30 79 19 165/65 (98) 100 09/28/19 11:28 146/58 09/28/19 11:15 75 20 146/67 (93) 100 09/28/19 11:11 76 23 80 09/28/19 11:00 78 18 171/71 (104) 100 09/28/19 11:00 20 Mechanical Ventilator 80 09/28/19 11:00 20 146/67 Mechanical Ventilator 80 09/28/19 10:45 72 18 172/73 (106) 100 09/28/19 10:30 68 20 164/62 (96) 98 09/28/19 10:15 71 20 157/61 (93) 99 09/28/19 10:00 70 22 160/61 (94) 99 09/28/19 10:00 20 Mechanical Ventilator 80 09/28/19 10:00 20 157/61 Mechanical Ventilator 80 09/28/19 09:45 68 20 144/58 (86) 97 09/28/19 09:30 70 19 146/58 (87) 98 09/28/19 09:15 71 20 149/53 (85) 98 8/15/20 09:00 73 19 126/53 (77) 97 09/28/19 09:00 20 Mechanical Ventilator 09/28/19 09:00 20 149/53 80 09/28/19 08:50 71 20 80 09/28/19 08:45 71 20 151/59 (89) 97 09/28/19 08:43 70 169/57 09/28/19 08:30 75 20 169/57 (94) 97 09/28/19 08:15 75 20 132/47 (75) 95 09/28/19 08:00 75 09/28/19 08:00 80 09/28/19 08:00 98.2 73 20 122/47 (72) 97 09/28/19 08:00 20 Mechanical Ventilator 09/28/19 08:00 20 151/59 Mechanical Ventilator 80 09/28/19 08:00 Mechanical Ventilator Mechanical Ventilator 09/28/19 07:45 70 21 141/50 (80) 98 09/28/19 07:30 61 20 154/65 (94) 96 09/28/19 07:29 68 20 100 Mechanical Ventilator 80 71 20 100 09/28/19 07:00 20 Mechanical Ventilator 80 09/28/19 07:00 20 135/52 Mechanical Ventilator 80 09/28/19 07:00 60 20 135/52 (79) 97 09/28/19 06:30 61 20 126/51 (76) 97 09/28/19 06:00 20 Mechanical Ventilator 80 09/28/19 06:00 20 148/54 Mechanical Ventilator 80 09/28/19 06:00 60 20 148/54 (85) 97 09/28/19 05:38 62 133/53 09/28/19 05:37 133/53 09/28/19 05:30 61 20 133/53 (79) 97 09/28/19 05:09 61 20 80 09/28/19 05:00 60 20 143/56 (85) 98 09/28/19 05:00 20 Mechanical Ventilator 80 09/28/19 05:00 20 143/56 Mechanical Ventilator 80 09/28/19 04:30 61 20 148/63 (91) 99 09/28/19 04:00 Mechanical Ventilator Mechanical Ventilator 09/28/19 04:00 20 Mechanical Ventilator 80 09/28/19 04:00 20 134/54 Mechanical Ventilator 80 09/28/19 04:00 80 09/28/19 04:00 98.0 60 20 134/54 (80) 98 09/28/19 04:00 66 09/28/19 03:30 62 21 149/54 (85) 98 09/28/19 03:27 71 23 80 09/28/19 03:00 22 Mechanical Ventilator 100 09/28/19 03:00 22 142/59 Mechanical Ventilator 100 09/28/19 03:00 64 22 142/59 (86) 100 09/28/19 02:30 59 20 133/46 (75) 99 09/28/19 02:16 20 147/48 Mechanical Ventilator 100 09/28/19 02:00 20 Mechanical Ventilator 100 09/28/19 02:00 20 147/48 Mechanical Ventilator 100 09/28/19 02:00 58 20 147/48 (81) 100 09/28/19 01:32 57 20 100 Mechanical Ventilator 100 68 20 100 09/28/19 01:30 57 20 140/48 (78) 100 09/28/19 01:00 60 20 129/54 (79) 100 09/28/19 01:00 20 Mechanical Ventilator 100 09/28/19 01:00 20 129/54 Mechanical Ventilator 100 09/28/19 00:30 57 20 134/50 (78) 100 09/28/19 00:08 133/45 09/28/19 00:00 100 09/28/19 00:00 Mechanical Ventilator Mechanical Ventilator 09/28/19 00:00 20 Mechanical Ventilator 100 09/28/19 00:00 20 133/45 Mechanical Ventilator 100 09/28/19 00:00 56 09/28/19 00:00 98.8 60 20 133/45 (74) 100 09/27/19 23:36 66 20 100 09/27/19 23:30 57 20 147/80 (102) 100 09/27/19 23:00 21 Mechanical Ventilator 100 09/27/19 23:00 21 126/44 Mechanical Ventilator 100 09/27/19 23:00 57 21 126/44 (71) 99 09/27/19 22:30 59 20 127/45 (72) 100 09/27/19 22:04 20 Mechanical Ventilator 100 09/27/19 22:00 20 124/45 Mechanical Ventilator 100 09/27/19 22:00 64 20 124/45 (71) 100 8/14/20 21:50 70 22 100 09/27/19 21:42 70 154/48 09/27/19 21:30 69 20 150/48 (82) 100 09/27/19 21:00 63 20 137/50 (79) 100 09/27/19 21:00 20 Mechanical Ventilator 100 09/27/19 21:00 20 137/50 Mechanical Ventilator 100 09/27/19 20:32 62 126/60 09/27/19 20:30 63 20 141/46 (77) 99 09/27/19 20:15 62 20 126/50 (75) 97 09/27/19 20:00 97.8 61 19 139/45 (76) 97 09/27/19 20:00 100 09/27/19 20:00 Mechanical Ventilator Mechanical Ventilator 09/27/19 20:00 19 Mechanical Ventilator 100 09/27/19 20:00 19 139/45 Mechanical Ventilator 100 09/27/19 20:00 60 09/27/19 19:38 64 20 100 Mechanical Ventilator 100 68 20 100 09/27/19 19:00 59 20 129/46 (73) 100 09/27/19 19:00 20 Mechanical Ventilator 100 09/27/19 19:00 20 129/46 Mechanical Ventilator 100 09/27/19 18:45 57 20 129/46 (73) 100 I&O Intake and Output 09/27/19 09/28/19 19:00 07:00 Intake Total 811 ml 489.46 ml Output Total 1085 ml 730 ml Balance -274 ml -240.54 ml Intake Free Water 10 ml 50 ml IV Total 801 ml 439.46 ml Output Urine Total 85 ml 180 ml Gastric Drainage Total 100 ml 550 ml Other 900 ml Dressing: other Wound: other Cardiovascular: RSR Respiratory: decreased breath sounds Abdomen: soft, non-tender, present bowel sounds Extremities: no cyanosis Laboratory Tests Test 09/28/19 04:26 09/28/19 07:47 White Blood Count 8.7 K/UL (4.8-10.8) # Red Blood Count 2.30 M/UL (4.20-5.40) L Hemoglobin 7.2 G/DL (12.0-16.0) L Hematocrit 22.7 % (37.0-47.0) L Mean Corpuscular Volume 99 FL (80-99) Mean Corpuscular Hemoglobin 31.3 PG (27.0-31.0) H Mean Corpuscular Hemoglobin Concent 31.8 G/DL (32.0-36.0) L Red Cell Distribution Width 16.6 % (11.6-14.8) H Platelet Count 242 K/UL (150-450) Mean Platelet Volume 6.1 FL (6.5-10.1) L Neutrophils (%) (Auto) % (45.0-75.0) Lymphocytes (%) (Auto) % (20.0-45.0) Monocytes (%) (Auto) % (1.0-10.0) Eosinophils (%) (Auto) % (0.0-3.0) Basophils (%) (Auto) % (0.0-2.0) Differential Total Cells Counted 100 Neutrophils % (Manual) 76 % (45-75) H Lymphocytes % (Manual) 16 % (20-45) L Monocytes % (Manual) 6 % (1-10) Eosinophils % (Manual) 1 % (0-3) Basophils % (Manual) 1 % (0-2) Band Neutrophils 0 % (0-8) Platelet Estimate Adequate Platelet Morphology Normal Hypochromasia 3+ Anisocytosis 1+ Sodium Level 140 MMOL/L (136-145) Potassium Level 3.7 MMOL/L (3.5-5.1) Chloride Level 100 MMOL/L (98-107) Carbon Dioxide Level 29 MMOL/L (21-32) Anion Gap 11 mmol/L (5-15) Blood Urea Nitrogen 70 mg/dL (7-18) H Creatinine 2.5 MG/DL (0.55-1.30) H Estimat Glomerular Filtration Rate 20.6 mL/min (>60) Glucose Level 57 MG/DL (74-106) L Uric Acid 5.8 MG/DL (2.6-7.2) Calcium Level 8.9 MG/DL (8.5-10.1) Phosphorus Level 5.0 MG/DL (2.5-4.9) H Magnesium Level 2.4 MG/DL (1.8-2.4) Iron Level 30 ug/dL (50-175) L Total Iron Binding Capacity 155 ug/dL (250-450) L Percent Iron Saturation 19 % (15-50) Unsaturated Iron Binding 125 ug/dL (112-346) Ferritin 1341 NG/ML (8-388) H Total Bilirubin 0.3 MG/DL (0.2-1.0) Aspartate Amino Transf (AST/SGOT) 21 U/L (15-37) Alanine Aminotransferase (ALT/SGPT) 7 U/L (12-78) L Alkaline Phosphatase 142 U/L (46-116) H Troponin I 0.054 ng/mL (0.000-0.056) C-Reactive Protein, Quantitative 10.0 mg/dL (0.00-0.90) H Pro-B-Type Natriuretic Peptide > 85502 pg/mL (0-125) H Total Protein 6.2 G/DL (6.4-8.2) L Albumin 1.9 G/DL (3.4-5.0) L Globulin 4.3 g/dL Albumin/Globulin Ratio 0.4 (1.0-2.7) L Vitamin B12 Level 1427 PG/ML (193-986) H Folate 30.5 NG/ML (8.6-58.9) Arterial Blood pH 7.454 (7.350-7.450) Arterial Blood Partial Pressure CO2 41.2 mmHg (35.0-45.0) Arterial Blood Partial Pressure O2 69.3 mmHg (75.0-100.0) L Arterial Blood HCO3 28.3 mmol/L (22.0-26.0) H Arterial Blood Oxygen Saturation 93.3 % (95-100) L Arterial Blood Base Excess 4.0 (-2-2) H Rojas Test Positive Plan Problems: (1) Anemia (2) Proteinuria (3) UTI (urinary tract infection) (4) ARF (acute renal failure) (5) ACS (acute coronary syndrome) (6) Respiratory failure, acute and chronic (7) HCAP (healthcare-associated pneumonia) (8) Abrasion of lip, initial encounter (9) COPD with exacerbation (10) Hypokalemia (11) Sepsis Assessment & Plan: Leukocytosis, anemia, abnormal labs. Renal insufficiency potentially dehydrated Abnormal LFTs alk phos elevated Urine noted significant bacteria likely UTI etiology Wound stable still requiring local care IV antibiotics per infectious disease Discussed with underwriting assistant Dr. Berkowitz air mattress turn q2h nutritional tf will follow with recs thank you CT noted pending VQ scan - noted poor study low prob PE work respiratory increasing needs sedation weaning vent settings 80% peep 10 now comfortable Hd line in receiving HD plan for left thora 09/26 (12) Chronic respiratory failure (13) Ascites (14) Bacteremia (15) Hypernatremia (16) Pleural effusion (17) Pacemaker (18) Aortic dissection, thoracic (19) Tracheostomy in place Assessment & Plan: trach stable no bleeding currently likely tongue etiology of mild oozing currently hemostatic without trauma (20) Feeding by G-tube Assessment & Plan: okay to resume tube feeds via g tube patent and functional dressings okay DAILY ESTIMATED NEEDS: Needs based on Pulmonary, wound 49kg 30-35 kcals/kg [id number] total kcals 1.25-2 g protein/kg 61-98 g total protein Fluid per MD NUTRITION DIAGNOSIS: * Swallowing difficulty R/T dysphagia, respiratory status as evidenced by vent dep via T-collar, GT Dep. (CURRENT TF: Nepro @45ml/hr x 24 hrs) ENTERAL NUTRITION RECOMMENDATIONS: Nepro @ 40ml/hr x 24 hrs to provide 960ml, 1728kcal, 78g prot, 698ml free water * Rec LOWER current rate to 40ml/hr for 24 hrs run. 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 Base of wound is granular with bone exposure at base of sacrococcygeal.(L)10.5cm x (W06.5cm x (D) 2.8cm , undermining 11-3 by 3.6cm @12 o'clock. small amt serosanguineous exudate noted . [place]aine epithelial along edges bordered by darker skin tone without erythema. Resolving Pressure injury L ischium. Base of wound is 95% pink epithelial ,5% noni at center base of wound. No exudate noted. Both heels are boggy with non-Blanching erythema. Tx.plan: Cleanse Sacral wound with Saline. Loosely pack with Hydrogel impregnated Kerlix. Apply Moisture Barrier Periwound. Cover with Optifoam drsg Daily and prn. Apply Moisture Barrier paste to L Ischium. Cover with Optifoam drsg. Changee very 3 days and prn. Apply Cavilon Skin Barrier to both heels. Cover each heel with Optifoam drsgs. Change every 7 days and prn. Reposition at least every 2hours or as tolerated. Off-load heels with pillow. APM/JENNIFER Mattress overlay. Lane Saavedra Sep 28, 2019 18:35
[2019-09-28] MEDS: Dyna-Hex 2% Top Sol 2oz TOPIC SCH (20:41)
[2019-09-28] MEDS: Sertraline 100mg tab GT SCH (20:41)
[2019-09-28] MEDS: NS IV SCH (21:49)
[2019-09-28] MEDS: CEFTOLOZANE IV SCH (21:49)
[2019-09-28] MEDS: TAZOBACTAM IV SCH (21:49)
--- NOTE | 2019-09-28 22:31 | General Progress Note ---
Assessment/Plan Assessment/Plan: Assessment/Plan Problem List: (1) S/P aortic dissection repair ICD Codes: Z98.890 - Other specified postprocedural states SNOMED: 073665634, 590832095 (2) Sacral decubitus ulcer, stage IV ICD Codes: L89.154 - Pressure ulcer of sacral region, stage 4 SNOMED: 837260870, 104665040 (3) Anemia ICD Codes: D64.9 - Anemia, unspecified SNOMED: 544417080 (4) GT CLOGGED (5) Feeding by G-tube/dysphagia ICD Codes: Z93.1 - Gastrostomy status SNOMED: 650015217, 023314635 (6) Tracheostomy in place ICD Codes: Z93.0 - Tracheostomy status SNOMED: 176307111 (7) Pacemaker ICD Codes: Z95.0 - Presence of cardiac pacemaker SNOMED: 136671073 (8) Chronic respiratory failure ICD Codes: J96.10 - Chronic respiratory failure, unspecified whether with hypoxia or hypercapnia SNOMED: 23074785 Assessment/Plan: anemia work up s/p GT change follow labs Elevate HOB ICU care Subjective Allergies: Coded Allergies: No Known Allergies (Unverified , 10/10/17) Subjective Above noted seen in ICU d/w staff interpreter s/p GT change yesterday tolerating TF Objective Last 24 Hour Vital Signs Date Time Temp Pulse Resp B/P (MAP) Pulse Ox O2 Delivery O2 Flow Rate FiO2 09/28/19 22:26 67 156/61 09/28/19 21:23 67 20 80 09/28/19 20:41 72 143/60 09/28/19 19:35 72 24 99 Mechanical Ventilator 80 74 20 80 09/28/19 19:00 73 22 136/59 (84) 96 09/28/19 19:00 20 Mechanical Ventilator 80 09/28/19 19:00 20 145/59 Mechanical Ventilator 80 09/28/19 18:00 20 Mechanical Ventilator 80 09/28/19 18:00 20 138/53 Mechanical Ventilator 80 09/28/19 18:00 69 20 130/54 (79) 96 09/28/19 17:44 98.2 09/28/19 17:14 147/58 09/28/19 17:00 20 Mechanical Ventilator 80 09/28/19 17:00 20 138/53 Mechanical Ventilator 80 09/28/19 17:00 73 19 122/55 (77) 96 09/28/19 16:45 75 20 123/61 (81) 94 09/28/19 16:42 76 27 80 09/28/19 16:30 75 21 133/60 (84) 95 09/28/19 16:15 76 21 138/65 (89) 94 09/28/19 16:00 71 09/28/19 16:00 80 09/28/19 16:00 98.6 74 20 143/68 (93) 94 09/28/19 16:00 24 Mechanical Ventilator 80 09/28/19 16:00 21 147/70 Mechanical Ventilator 80 09/28/19 16:00 Mechanical Ventilator Mechanical Ventilator 09/28/19 15:45 72 20 147/70 (95) 96 09/28/19 15:30 70 20 154/64 (94) 95 09/28/19 15:15 71 21 170/69 (102) 97 09/28/19 15:09 72 21 80 09/28/19 15:00 24 80 09/28/19 15:00 20 154/75 Mechanical Ventilator 09/28/19 15:00 71 20 155/72 (99) 69 09/28/19 14:45 73 20 154/75 (101) 86 09/28/19 14:30 79 22 164/86 (112) 99 09/28/19 14:15 79 19 150/60 (90) 98 09/28/19 14:00 76 19 155/59 (91) 100 09/28/19 14:00 24 Mechanical Ventilator 80 09/28/19 14:00 20 149/62 Mechanical Ventilator 80 09/28/19 13:45 74 20 149/62 (91) 99 09/28/19 13:34 75 147/55 09/28/19 13:33 24 Mechanical Ventilator 80 09/28/19 13:30 73 20 139/55 (83) 100 09/28/19 13:20 73 20 100 Mechanical Ventilator 80 76 20 100 09/28/19 13:15 74 20 141/54 (83) 99 09/28/19 13:00 20 Mechanical Ventilator 80 09/28/19 13:00 20 137/49 Mechanical Ventilator 80 09/28/19 13:00 77 22 155/60 (91) 99 8/15/20 12:45 73 20 140/57 (84) 97 09/28/19 12:44 20 157/61 Mechanical Ventilator 80 09/28/19 12:30 72 20 137/49 (78) 98 09/28/19 12:15 72 20 137/49 (78) 98 09/28/19 12:00 75 09/28/19 12:00 98.2 74 20 139/55 (83) 99 09/28/19 12:00 22 Mechanical Ventilator 80 09/28/19 12:00 80 09/28/19 12:00 Mechanical Ventilator Mechanical Ventilator 09/28/19 11:45 77 20 166/74 (104) 100 09/28/19 11:30 79 19 165/65 (98) 100 09/28/19 11:28 146/58 09/28/19 11:15 75 20 146/67 (93) 100 09/28/19 11:11 76 23 80 09/28/19 11:00 78 18 171/71 (104) 100 09/28/19 11:00 20 Mechanical Ventilator 80 09/28/19 11:00 20 146/67 Mechanical Ventilator 80 09/28/19 10:45 72 18 172/73 (106) 100 09/28/19 10:30 68 20 164/62 (96) 98 09/28/19 10:15 71 20 157/61 (93) 99 09/28/19 10:00 70 22 160/61 (94) 99 09/28/19 10:00 20 Mechanical Ventilator 80 09/28/19 10:00 20 157/61 Mechanical Ventilator 80 09/28/19 09:45 68 20 144/58 (86) 97 09/28/19 09:30 70 19 146/58 (87) 98 09/28/19 09:15 71 20 149/53 (85) 98 09/28/19 09:00 73 19 126/53 (77) 97 09/28/19 09:00 20 Mechanical Ventilator 09/28/19 09:00 20 149/53 80 09/28/19 08:50 71 20 80 09/28/19 08:45 71 20 151/59 (89) 97 09/28/19 08:43 70 169/57 09/28/19 08:30 75 20 169/57 (94) 97 09/28/19 08:15 75 20 132/47 (75) 95 09/28/19 08:00 75 09/28/19 08:00 80 09/28/19 08:00 98.2 73 20 122/47 (72) 97 09/28/19 08:00 20 Mechanical Ventilator 09/28/19 08:00 20 151/59 Mechanical Ventilator 80 09/28/19 08:00 Mechanical Ventilator Mechanical Ventilator 09/28/19 07:45 70 21 141/50 (80) 98 09/28/19 07:30 61 20 154/65 (94) 96 09/28/19 07:29 68 20 100 Mechanical Ventilator 80 71 20 100 09/28/19 07:00 20 Mechanical Ventilator 80 09/28/19 07:00 20 135/52 Mechanical Ventilator 80 09/28/19 07:00 60 20 135/52 (79) 97 09/28/19 06:30 61 20 126/51 (76) 97 09/28/19 06:00 20 Mechanical Ventilator 80 09/28/19 06:00 20 148/54 Mechanical Ventilator 80 09/28/19 06:00 60 20 148/54 (85) 97 09/28/19 05:38 62 133/53 09/28/19 05:37 133/53 09/28/19 05:30 61 20 133/53 (79) 97 09/28/19 05:09 61 20 80 09/28/19 05:00 60 20 143/56 (85) 98 09/28/19 05:00 20 Mechanical Ventilator 80 09/28/19 05:00 20 143/56 Mechanical Ventilator 80 09/28/19 04:30 61 20 148/63 (91) 99 09/28/19 04:00 Mechanical Ventilator Mechanical Ventilator 09/28/19 04:00 20 Mechanical Ventilator 80 09/28/19 04:00 20 134/54 Mechanical Ventilator 80 09/28/19 04:00 80 09/28/19 04:00 98.0 60 20 134/54 (80) 98 09/28/19 04:00 66 09/28/19 03:30 62 21 149/54 (85) 98 09/28/19 03:27 71 23 80 09/28/19 03:00 22 Mechanical Ventilator 100 09/28/19 03:00 22 142/59 Mechanical Ventilator 100 09/28/19 03:00 64 22 142/59 (86) 100 09/28/19 02:30 59 20 133/46 (75) 99 09/28/19 02:16 20 147/48 Mechanical Ventilator 100 09/28/19 02:00 20 Mechanical Ventilator 100 09/28/19 02:00 20 147/48 Mechanical Ventilator 100 09/28/19 02:00 58 20 147/48 (81) 100 09/28/19 01:32 57 20 100 Mechanical Ventilator 100 68 20 100 09/28/19 01:30 57 20 140/48 (78) 100 09/28/19 01:00 60 20 129/54 (79) 100 09/28/19 01:00 20 Mechanical Ventilator 100 09/28/19 01:00 20 129/54 Mechanical Ventilator 100 09/28/19 00:30 57 20 134/50 (78) 100 09/28/19 00:08 133/45 09/28/19 00:00 100 09/28/19 00:00 Mechanical Ventilator Mechanical Ventilator 09/28/19 00:00 20 Mechanical Ventilator 100 09/28/19 00:00 20 133/45 Mechanical Ventilator 100 09/28/19 00:00 56 09/28/19 00:00 98.8 60 20 133/45 (74) 100 09/27/19 23:36 66 20 100 09/27/19 23:30 57 20 147/80 (102) 100 09/27/19 23:00 21 Mechanical Ventilator 100 09/27/19 23:00 21 126/44 Mechanical Ventilator 100 09/27/19 23:00 57 21 126/44 (71) 99 09/27/19 22:30 59 20 127/45 (72) 100 Intake and Output 09/27/19 09/28/19 19:00 07:00 Intake Total 811 ml 489.46 ml Output Total 1085 ml 730 ml Balance -274 ml -240.54 ml Intake Free Water 10 ml 50 ml IV Total 801 ml 439.46 ml Output Urine Total 85 ml 180 ml Gastric Drainage Total 100 ml 550 ml Other 900 ml Laboratory Tests 09/28/19 04:26: White Blood Count 8.7#, Red Blood Count 2.30L, Hemoglobin 7.2L, Hematocrit 22.7L , Mean Corpuscular Volume 99, Mean Corpuscular Hemoglobin 31.3H, Mean Corpuscular Hemoglobin Concent 31.8L, Red Cell Distribution Width 16.6H, Platelet Count 242, Mean Platelet Volume 6.1L, Neutrophils (%) (Auto) , Lymphocytes (%) (Auto) , Monocytes (%) (Auto) , Eosinophils (%) (Auto) , Basophils (%) (Auto) , Differential Total Cells Counted 100, Neutrophils % ( Manual) 76H, Lymphocytes % (Manual) 16L, Monocytes % (Manual) 6, Eosinophils % ( Manual) 1, Basophils % (Manual) 1, Band Neutrophils 0, Platelet Estimate Adequate, Platelet Morphology Normal, Hypochromasia 3+, Anisocytosis 1+, Sodium Level 140, Potassium Level 3.7, Chloride Level 100, Carbon Dioxide Level 29, Anion Gap 11, Blood Urea Nitrogen 70H, Creatinine 2.5H, Estimat Glomerular Filtration Rate 20.6, Glucose Level 57L, Uric Acid 5.8, Calcium Level 8.9, Phosphorus Level 5.0H, Magnesium Level 2.4, Iron Level 30L, Total Iron Binding Capacity 155L, Percent Iron Saturation 19, Unsaturated Iron Binding 125, Ferritin 1341H, Total Bilirubin 0.3, Aspartate Amino Transf (AST/SGOT) 21, Alanine Aminotransferase (ALT/SGPT) 7L, Alkaline Phosphatase 142H, Troponin I 0.054, C-Reactive Protein, Quantitative 10.0H, Pro-B-Type Natriuretic Peptide > 40684A, Total Protein 6.2L, Albumin 1.9L, Globulin 4.3, Albumin/Globulin Ratio 0.4L, Vitamin B12 Level 1427H, Folate 30.5 09/28/19 07:47: Arterial Blood pH 7.454H, Arterial Blood Partial Pressure CO2 41.2, Arterial Blood Partial Pressure O2 69.3L, Arterial Blood HCO3 28.3H, Arterial Blood Oxygen Saturation 93.3L, Arterial Blood Base Excess 4.0H, Rojas Test Positive Height (Feet): 5 Height (Inches): 5.00 Weight (Pounds): 133 Objective Debilitated woman in ICU NCAT (+) trach coarse BS RR abd soft , (+) GT no edema Edmund Farris MD Sep 28, 2019 22:31
[2019-09-29] VITALS (63 sets, daily range): BP systolic 120–171; BP diastolic 48–98
[2019-09-29] MEDS: HydrALAZINE 50mg tab GT SCH ×4 (00:24→17:27)
[2019-09-29] MEDS: traMADol 50mg tab GT SCH ×4 (00:25→17:27)
[2019-09-29] MEDS: fentaNYL 2500mcg/NS 250ml 250 ML IV SCH ×3 (00:59→22:57)
[2019-09-29] MEDS: Midazolam for drip 50 MG in NS 90 ML IV PRN ×3 (01:00→20:04)
[2019-09-29] MEDS: Acetylcysteine 20% Soln 4ml HHN SCH ×2 (01:18→07:56)
[2019-09-29] MEDS: Albuterol/Ipratropium 3ml neb HHN SCH ×2 (01:19→07:56)
[2019-09-29] MEDS: NS IV SCH ×3 (04:18→20:43)
[2019-09-29] MEDS: CEFTOLOZANE IV SCH ×3 (04:18→20:43)
[2019-09-29] MEDS: TAZOBACTAM IV SCH ×3 (04:18→20:43)
[2019-09-29] MEDS: dilTIAZem HCl 30mg tab GT SCH ×3 (05:19→21:48)
[2019-09-29 06:16] LABS: BASOPHILS % (AUTO) 0.5 % (0.0-2.0); EOSINOPHILS % (AUTO) 5.7 % (0.0-3.0); HEMATOCRIT 26.6 % (37.0-47.0); HEMOGLOBIN 8.7 G/DL (12.0-16.0); LYMPHOCYTES % (AUTO) 15.6 % (20.0-45.0); MEAN CORPUSCULAR VOLUME 97 FL (80-99); MONOCYTES % (AUTO) 3.8 % (1.0-10.0); NEUTROPHILS % (AUTO) 74.3 % (45.0-75.0); PLATELET COUNT 252 K/UL (150-450); RED BLOOD COUNT 2.74 M/UL (4.20-5.40); RED CELL DISTRIBUTION WIDTH 16.1 % (11.6-14.8); WHITE BLOOD COUNT 9.3 K/UL (4.8-10.8)
[2019-09-29 06:44] LABS: ALANINE AMINOTRANSFERASE 7 U/L (12-78); ALBUMIN 1.8 G/DL (3.4-5.0); ALBUMIN/GLOBULIN RATIO 0.4 (1.0-2.7); ALKALINE PHOSPHATASE 143 U/L (46-116); ASPARTATE AMINO TRANSFERASE 22 U/L (15-37); BILIRUBIN,TOTAL 0.3 MG/DL (0.2-1.0); BLOOD UREA NITROGEN 76 mg/dL (7-18); CALCIUM 8.9 MG/DL (8.5-10.1); CARBON DIOXIDE 26 MMOL/L (21-32); CHLORIDE 101 MMOL/L (98-107); CREATININE 2.5 MG/DL (0.55-1.30); POTASSIUM 3.4 MMOL/L (3.5-5.1); SODIUM 141 MMOL/L (136-145)
[2019-09-29 06:55] LABS: CREATINE KINASE 17 U/L (26-308); GAMMA GLUTAMYL TRANSPEPTIDASE 84 U/L (5-85); PHOSPHORUS 3.2 MG/DL (2.5-4.9)
--- NOTE | 2019-09-29 07:43 | General Progress Note ---
Assessment/Plan Assessment/Plan: Covering [facility] Assessment and Recs # Leukocytosis, now with gram positive bacteremias well as pna noted --> historically --> PPM site (pocket) infection (redness and pain, bacteremia) and likely pocket abscess - no vegetation seen on ABBIE --> is s'p pm removal and also pocket infection is better --> per cards recs in re to tach/davis --> wbc 15-->19-->17-->15-->13->12-->13-->12>13-->18 --> ABX cefepime/levaquin--> vanc/angelo --> ID recs are noted # Anemia of chronic disease due to underlying chronic medical issues, multifactorial --> Anemia workup has been reviewed, cw acd --> No evidence of hemolysis is noted, peripheral smear has been reviewed. --> Hgb goal >7. Transfuse prn. --> Epogen started --> Medications have been reviewed --> low threshold for gi evaluation in case has occult + --> hgb 7.1-->7.8-->8.9->9.2-->8.5-->9.7-->10-->8.8-->9.6-->8.7->8.6-->7.2->8.7 --> 1 unit prbc 09/27 # Thrombocytois is likely reactive process, is s/p infection --> plt trend 610k-->706k --> p smear reviewed # Acute hypoxic respiratory failure s/p intubation 11/23- ?ARDS --> on vent/trach # Gram positive bacteremia- real bacteremia- 2ry to above and probable PNA --> per id care # JAVIER initially >2 --> now improved with D5w # Dysphagia s/p peg # Thoracic aortic dissection s/p repair early 2017 # Psychiatric history on ativan/haldol # [place] resident # Dvt ppx heparin sq The timing of this note does not necessarily reflect the time of the patient was seen. Greatly appreciate consultation. Subjective Constitutional: Denies: no symptoms, chills, diaphoresis, fever, malaise, weakness, other HEENT: Denies: no symptoms, eye pain, blurred vision, tearing, double vision, ear pain, ear discharge, nose pain, nose congestion, throat pain, throat swelling, mouth pain, mouth swelling, other Cardiovascular: Denies: no symptoms, chest pain, edema, irregular heart rate, lightheadedness, palpitations, syncope, other Respiratory: Denies: no symptoms, cough, orthopnea, shortness of breath, SOB with excertion, SOB at rest, sputum, stridor, wheezing, other Gastrointestinal/Abdominal: Denies: no symptoms, abdomen distended, abdominal pain, black stools, tarry stools, blood in stool, constipated, diarrhea, difficulty swallowing, nausea, poor appetite, poor fluid intake, rectal bleeding , vomiting, other Genitourinary: Denies: no symptoms, burning, discharge, frequency, flank pain, hematuria, incontinence, pain, urgency, other Neurologic/Psychiatric: Denies: no symptoms, anxiety, depressed, emotional problems, headache, numbness, paresthesia, pre-existing deficit, seizure, tingling, tremors, weakness, other Endocrine: Denies: no symptoms, excessive sweating, flushing, intolerance to cold, intolerance to heat, increased hunger, increased thirst, increased urine, unexplained weight gain, unexplained weight loss, other Allergies: Coded Allergies: No Known Allergies (Unverified , 10/10/17) Subjective 09/16 on vent now, consulted in am pulm, on vent setting, labs noted, hep sq 09/17 meds noted, cbc noted, labs noted, no bleeding 09/18 is to undergo potential v/q scan given abg, labs noted, resless, on ativan, to get haldol today, roman ramesh 09/19 remains agitated, covering, with sacral wound seeping, likely cause of anemia, roman ramesh 09/26 restless, remains agitated, gtube ripped, eval with rn, and vosoghi consulted 09/27 remains on vent, agitated, seen by gi, hgb low, roman George to transfuse 1 unit prbc 09/28 meds noted, no bleeding, on vent, s/p blood tranfusion, cbc pending, roman ramesh Objective Last 24 Hour Vital Signs Date Time Temp Pulse Resp B/P (MAP) Pulse Ox O2 Delivery O2 Flow Rate FiO2 09/29/19 07:30 59 20 136/56 (82) 92 09/29/19 07:15 59 20 134/53 (80) 91 09/29/19 07:00 60 20 120/48 (72) 92 09/29/19 07:00 20 Mechanical Ventilator 80 09/29/19 07:00 20 120/48 Mechanical Ventilator 80 09/29/19 06:45 59 20 128/51 (76) 92 09/29/19 06:30 58 20 135/55 (81) 92 09/29/19 06:15 60 20 134/55 (81) 92 09/29/19 06:00 61 20 139/55 (83) 93 09/29/19 06:00 20 Mechanical Ventilator 80 09/29/19 06:00 20 139/55 Mechanical Ventilator 80 09/29/19 05:48 98.6 09/29/19 05:45 60 20 141/57 (85) 94 09/29/19 05:30 60 20 151/59 (89) 96 09/29/19 05:19 158/61 09/29/19 05:19 63 158/61 09/29/19 05:15 62 20 158/61 (93) 96 09/29/19 05:08 60 20 80 09/29/19 05:00 20 Mechanical Ventilator 80 09/29/19 05:00 20 152/67 Mechanical Ventilator 80 09/29/19 05:00 60 20 152/67 (95) 96 09/29/19 04:45 61 19 148/58 (88) 96 09/29/19 04:30 63 20 149/59 (89) 96 09/29/19 04:20 68 28 155/67 (96) 96 09/29/19 04:00 Mechanical Ventilator Mechanical Ventilator 09/29/19 04:00 98.6 61 21 157/64 (95) 96 09/29/19 04:00 61 09/29/19 04:00 17 Mechanical Ventilator 80 09/29/19 04:00 21 157/64 Mechanical Ventilator 80 09/29/19 04:00 80 09/29/19 03:45 60 20 153/58 (89) 93 09/29/19 03:30 61 20 153/57 (89) 92 09/29/19 03:25 61 20 80 09/29/19 03:15 61 20 153/56 (88) 93 09/29/19 03:00 20 Mechanical Ventilator 80 09/29/19 03:00 20 153/56 Mechanical Ventilator 80 09/29/19 03:00 62 20 154/58 (90) 92 09/29/19 02:45 61 20 162/60 (94) 95 09/29/19 02:30 63 20 170/59 (96) 95 09/29/19 02:00 17 Mechanical Ventilator 80 09/29/19 02:00 19 149/98 Mechanical Ventilator 80 09/29/19 02:00 65 20 148/98 (115) 99 09/29/19 01:30 59 20 171/62 (98) 100 09/29/19 01:19 58 20 100 Mechanical Ventilator 80 62 20 80 09/29/19 01:15 57 20 171/62 (98) 100 09/29/19 01:00 61 19 168/65 (99) 100 09/29/19 01:00 20 Mechanical Ventilator 10.0 80 09/29/19 01:00 17 125/62 Mechanical Ventilator 80 09/29/19 00:59 Mechanical Ventilator 80 09/29/19 00:59 20 159/58 Non-Rebreather 10.0 80 09/29/19 00:45 57 20 165/59 (94) 99 09/29/19 00:30 56 20 162/59 (93) 99 09/29/19 00:24 159/58 09/29/19 00:15 57 20 159/58 (91) 99 09/29/19 00:00 98.5 58 20 161/59 (93) 98 09/29/19 00:00 19 Mechanical Ventilator 55 09/29/19 00:00 20 159/58 Mechanical Ventilator 80 09/29/19 00:00 71 09/29/19 00:00 Mechanical Ventilator Mechanical Ventilator 09/29/19 00:00 80 09/29/19 00:00 63 09/28/19 23:45 58 20 161/60 (93) 99 09/28/19 23:30 59 20 164/65 (98) 99 09/28/19 23:15 59 20 165/60 (95) 100 09/28/19 23:00 59 21 166/62 (96) 100 09/28/19 23:00 58 20 80 09/28/19 23:00 17 Mechanical Ventilator 55 09/28/19 23:00 18 129/61 Mechanical Ventilator 80 09/28/19 22:45 18 134/68 Mechanical Ventilator 80 09/28/19 22:45 60 20 160/60 (93) 100 09/28/19 22:30 60 20 160/63 (95) 100 09/28/19 22:30 18 130/59 Mechanical Ventilator 80 09/28/19 22:26 67 156/61 09/28/19 22:15 62 20 156/65 (95) 79 09/28/19 22:00 62 20 164/63 (96) 96 09/28/19 22:00 19 Mechanical Ventilator 80 09/28/19 22:00 20 156/68 Non-Rebreather 80 09/28/19 21:45 63 21 158/66 (96) 95 09/28/19 21:30 65 20 141/57 (85) 92 09/28/19 21:23 67 20 80 09/28/19 21:15 67 20 142/59 (86) 93 09/28/19 21:00 20 142/59 Mechanical Ventilator 80 09/28/19 21:00 69 20 153/62 (92) 95 09/28/19 20:45 70 20 144/66 (92) 96 09/28/19 20:41 72 143/60 09/28/19 20:30 73 20 143/60 (87) 96 09/28/19 20:15 79 19 164/66 (98) 98 09/28/19 20:00 80 09/28/19 20:00 Mechanical Ventilator Mechanical Ventilator 09/28/19 20:00 99.6 72 20 160/64 (96) 100 09/28/19 20:00 20 164/66 Mechanical Ventilator 80 09/28/19 19:45 76 18 167/67 (100) 100 09/28/19 19:35 72 24 99 Mechanical Ventilator 80 74 20 80 09/28/19 19:30 72 27 141/60 (87) 96 09/28/19 19:15 71 21 145/59 (87) 95 09/28/19 19:00 73 22 136/59 (84) 96 09/28/19 19:00 20 Mechanical Ventilator 80 09/28/19 19:00 20 145/59 Mechanical Ventilator 80 09/28/19 18:00 20 Mechanical Ventilator 80 09/28/19 18:00 20 138/53 Mechanical Ventilator 80 09/28/19 18:00 69 20 130/54 (79) 96 09/28/19 17:14 147/58 09/28/19 17:00 20 Mechanical Ventilator 80 09/28/19 17:00 20 138/53 Mechanical Ventilator 80 09/28/19 17:00 73 19 122/55 (77) 96 09/28/19 16:45 75 20 123/61 (81) 94 09/28/19 16:42 76 27 80 09/28/19 16:30 75 21 133/60 (84) 95 09/28/19 16:15 76 21 138/65 (89) 94 09/28/19 16:00 71 09/28/19 16:00 80 09/28/19 16:00 98.6 74 20 143/68 (93) 94 09/28/19 16:00 24 Mechanical Ventilator 80 09/28/19 16:00 21 147/70 Mechanical Ventilator 80 09/28/19 16:00 Mechanical Ventilator Mechanical Ventilator 09/28/19 15:45 72 20 147/70 (95) 96 09/28/19 15:30 70 20 154/64 (94) 95 09/28/19 15:15 71 21 170/69 (102) 97 09/28/19 15:09 72 21 80 09/28/19 15:00 24 80 09/28/19 15:00 20 154/75 Mechanical Ventilator 09/28/19 15:00 71 20 155/72 (99) 69 09/28/19 14:45 73 20 154/75 (101) 86 09/28/19 14:30 79 22 164/86 (112) 99 09/28/19 14:15 79 19 150/60 (90) 98 09/28/19 14:00 76 19 155/59 (91) 100 09/28/19 14:00 24 Mechanical Ventilator 80 09/28/19 14:00 20 149/62 Mechanical Ventilator 80 09/28/19 13:45 74 20 149/62 (91) 99 09/28/19 13:34 75 147/55 09/28/19 13:33 24 Mechanical Ventilator 80 09/28/19 13:30 73 20 139/55 (83) 100 09/28/19 13:20 73 20 100 Mechanical Ventilator 80 76 20 100 09/28/19 13:15 74 20 141/54 (83) 99 09/28/19 13:00 20 Mechanical Ventilator 80 09/28/19 13:00 20 137/49 Mechanical Ventilator 80 09/28/19 13:00 77 22 155/60 (91) 99 09/28/19 12:45 73 20 140/57 (84) 97 09/28/19 12:44 20 157/61 Mechanical Ventilator 80 09/28/19 12:30 72 20 137/49 (78) 98 09/28/19 12:15 72 20 137/49 (78) 98 09/28/19 12:00 75 09/28/19 12:00 98.2 74 20 139/55 (83) 99 09/28/19 12:00 22 Mechanical Ventilator 80 09/28/19 12:00 80 09/28/19 12:00 Mechanical Ventilator Mechanical Ventilator 09/28/19 11:45 77 20 166/74 (104) 100 09/28/19 11:30 79 19 165/65 (98) 100 09/28/19 11:28 146/58 09/28/19 11:15 75 20 146/67 (93) 100 09/28/19 11:11 76 23 80 09/28/19 11:00 78 18 171/71 (104) 100 09/28/19 11:00 20 Mechanical Ventilator 80 09/28/19 11:00 20 146/67 Mechanical Ventilator 80 09/28/19 10:45 72 18 172/73 (106) 100 09/28/19 10:30 68 20 164/62 (96) 98 09/28/19 10:15 71 20 157/61 (93) 99 09/28/19 10:00 70 22 160/61 (94) 99 09/28/19 10:00 20 Mechanical Ventilator 80 09/28/19 10:00 20 157/61 Mechanical Ventilator 80 09/28/19 09:45 68 20 144/58 (86) 97 09/28/19 09:30 70 19 146/58 (87) 98 09/28/19 09:15 71 20 149/53 (85) 98 09/28/19 09:00 73 19 126/53 (77) 97 09/28/19 09:00 20 Mechanical Ventilator 09/28/19 09:00 20 149/53 80 09/28/19 08:50 71 20 80 09/28/19 08:45 71 20 151/59 (89) 97 09/28/19 08:43 70 169/57 09/28/19 08:30 75 20 169/57 (94) 97 09/28/19 08:15 75 20 132/47 (75) 95 09/28/19 08:00 75 09/28/19 08:00 80 09/28/19 08:00 98.2 73 20 122/47 (72) 97 09/28/19 08:00 20 Mechanical Ventilator 09/28/19 08:00 20 151/59 Mechanical Ventilator 80 09/28/19 08:00 Mechanical Ventilator Mechanical Ventilator 09/28/19 07:45 70 21 141/50 (80) 98 Intake and Output 09/28/19 09/29/19 19:00 07:00 Intake Total 962.000 ml 1255.50 ml Output Total 680 ml 90 ml Balance 282.000 ml 1165.50 ml Intake Free Water 30 ml IV Total 427.000 ml 600.50 ml Tube Feeding 255 ml 475 ml Blood Product 250 ml Other 180 ml Output Urine Total 80 ml 70 ml Gastric Drainage Total 600 ml 20 ml Laboratory Tests 09/28/19 07:47: Arterial Blood pH 7.454H, Arterial Blood Partial Pressure CO2 41.2, Arterial Blood Partial Pressure O2 69.3L, Arterial Blood HCO3 28.3H, Arterial Blood Oxygen Saturation 93.3L, Arterial Blood Base Excess 4.0H, Rojas Test Positive 09/29/19 05:01: White Blood Count 9.3, Red Blood Count 2.74L, Hemoglobin 8.7L, Hematocrit 26.6L , Mean Corpuscular Volume 97, Mean Corpuscular Hemoglobin 31.5H, Mean Corpuscular Hemoglobin Concent 32.5, Red Cell Distribution Width 16.1H, Platelet Count 252, Mean Platelet Volume 6.1L, Neutrophils (%) (Auto) 74.3, Lymphocytes (%) (Auto) 15.6L, Monocytes (%) (Auto) 3.8, Eosinophils (%) (Auto) 5.7H, Basophils (%) (Auto) 0.5, Sodium Level 141, Potassium Level 3.4L, Chloride Level 101, Carbon Dioxide Level 26, Blood Urea Nitrogen 76H, Creatinine 2.5H, Estimat Glomerular Filtration Rate 20.6, Glucose Level 64L, Uric Acid 2.4L, Calcium Level 8.9, Phosphorus Level 3.2, Magnesium Level 1.8, Total Bilirubin 0.3, Gamma Glutamyl Transpeptidase 84, Aspartate Amino Transf ( AST/SGOT) 22, Alanine Aminotransferase (ALT/SGPT) 7L, Alkaline Phosphatase 143H , Total Creatine Kinase 17L, Total Protein 6.3L, Albumin 1.8L, Globulin 4.5, Albumin/Globulin Ratio 0.4L, Random Gentamicin Level 2.0, Random Vancomycin Level 16.3 Height (Feet): 5 Height (Inches): 5.00 Weight (Pounds): 132 Objective Physical Exam: Vitals: reviewed General: NAD HEENT: nc, at Neck: supple ++tracn/vent Chest: clear breath sounds bilaterally Cardiovascular: RRR, no s3, s4 Abdomen: soft, nontender, nd +gtube Extremities: no cce, normal range of motion Neuro: alert Evan Muhammad MD Sep 29, 2019 07:43
[2019-09-29] MEDS: Docusate 100mg/10ml Liq GT SCH ×2 (08:46→16:59)
[2019-09-29] MEDS: OLANZapine 2.5mg tab GT SCH (08:46)
[2019-09-29] MEDS: Heparin 5000 units/ml inj SUBQ SCH ×2 (08:48→20:07)
--- NOTE | 2019-09-29 09:25 | Diagnostic Imaging Report ---
EXAM: XR Chest, 1 View CLINICAL HISTORY: Shortness of breath TECHNIQUE: Frontal view of the chest. COMPARISON: Chest x-rays dated 09/28/19 and 09/27/19. FINDINGS: Lungs: No significant change in perihilar pulmonary edema and pulmonary vascular congestion. Subsegmental atelectasis versus infiltrates in the medial lung bases. No new consolidation seen. Pleural space: Unremarkable. The costophrenic angles are sharp. No visible pneumothorax. Heart: Unremarkable. No cardiomegaly. Mediastinum: Unremarkable. Bones/joints: Status post median sternotomy. Tubes, lines and devices: Stable positioning of the tracheostomy tube and right IJ approach central venous catheter with the tip in the superior cavoatrial junction. Telemetry leads overlie the thorax. IMPRESSION: 1. No significant change in perihilar pulmonary edema and pulmonary vascular congestion. 2. Subsegmental atelectasis versus infiltrates in the medial lung bases.
--- NOTE | 2019-09-29 10:28 | Pulmonolgy Critical Care Note ---
Yara Castro FLAMER SEALER 09/29/19 1028: Critical Care - Asmt/Plan Assessment/Plan: ASSESSMENT Acute on chronic hypoxemic respiratory failure ( trach dependent), now on vent Tracheostomy status, s/p change to cuffed trach Sepsis Pulmonary edema Pleural effusion -worsening left pl effusion s/p thoracentesis L pleural effusion 09/26 -900 ml Pneumonia with MDR Pseudomonas UTI CHF ? cardiorenal COPD Acute kidney injury and chronic kidney disease-requiring start of HD Hypertension Atrial fibrillation Moderate pulm HTN Moderate AR Dysphagia , feeding by G-tube Electrolyte abnormalities Anemia Toxic metabolic encephalopathy likely due to sepsis and ARF HTN PAF PLAN OF CARE ICU on vent AC trach changed 8/4 pm from uncuffed to cuffed Shiley#[address] chest w/out contrast: - Bilateral pleural effusions, right greater than left, with bilateral lower lobe consolidation or volume loss. -Ground-glass densities in the upper lobes bilaterally. This is not specific. -Tracheostomy. -Increased superior mediastinal density. Stability of adenopathy cannot be excluded. -Atherosclerotic change. -Gastrostomy. -Ascites. -Left renal stent with left hydronephrosis and renal atrophy. VQ scan -> low probability for PE worsening resp status was due to need for HD, now after HD started, resp status improving, down to PEEP 5 and AC 20 trach care , pulmonary toilet ABG this am stable on current settings, keep as is and titrate as needed fup with ABG and CXR in am rapid COVID 19 NGT x3 sedation with fentanyl gtt and Versed prn-> start weaning s/p thoracentesis L pleural effusion 09/26 am -> 900 ml fluid analysis noted, fup with fluid cx and cytology aspiration precautions venous Duplex BLE -> NGT DVT prophylaxis pulm toilet, continue Mucomyst to help in loosening secretions abx as per ID- s/p gent x 1, now on Vanco and Zerbaxa SCX 8/3 + Proteus, SCX 8/10 Pseudomonas MDR UCX 8/2 + Providencia , UCX 8/10 VRE 10-20 K only BCX 8/2 Staph epidermidis, BCX 8/3 NGT , BCX 8/10- NGTD monitor volumes was on gentle IVF-> dc s/p prior diuretic-Lasix require initiation of HD close monitoring of volumes, renal parameters and lytes -per nephro recs ECHO with pEF , moderate pulm HTN and moderate AR BP management with current regimen of BB, Cardizem and Hydralazine, remains in SR monitor HH with goal to keep Hgb >7, heme on board on EPO supportive care pain management wound care bowel regimen thank you for a consult Critical Care - Objective Last 24 Hour Vital Signs Date Time Temp Pulse Resp B/P (MAP) Pulse Ox O2 Delivery O2 Flow Rate FiO2 09/29/19 10:00 69 23 145/61 (89) 94 09/29/19 10:00 23 Mechanical Ventilator 80 09/29/19 09:37 20 138/51 Mechanical Ventilator 80 09/29/19 09:30 66 20 138/51 (80) 89 09/29/19 09:00 20 Mechanical Ventilator 80 09/29/19 09:00 20 134/48 Mechanical Ventilator 80 09/29/19 09:00 66 20 80 09/29/19 09:00 66 20 134/48 (76) 95 09/29/19 08:46 63 157/63 09/29/19 08:30 63 20 131/50 (77) 94 09/29/19 08:11 59 20 95 Mechanical Ventilator 80 62 20 80 09/29/19 08:04 63 09/29/19 08:00 80 09/29/19 08:00 20 Mechanical Ventilator 80 09/29/19 08:00 20 157/63 Mechanical Ventilator 80 09/29/19 08:00 Mechanical Ventilator Mechanical Ventilator 09/29/19 08:00 99.0 66 20 157/63 (94) 96 09/29/19 07:30 59 20 136/56 (82) 92 09/29/19 07:15 59 20 134/53 (80) 91 09/29/19 07:00 60 20 120/48 (72) 92 09/29/19 07:00 20 Mechanical Ventilator 80 09/29/19 07:00 20 120/48 Mechanical Ventilator 80 09/29/19 06:45 59 20 128/51 (76) 92 09/29/19 06:30 58 20 135/55 (81) 92 09/29/19 06:15 60 20 134/55 (81) 92 09/29/19 06:00 61 20 139/55 (83) 93 09/29/19 06:00 20 Mechanical Ventilator 80 8/16/20 06:00 20 139/55 Mechanical Ventilator 80 09/29/19 05:48 98.6 09/29/19 05:45 60 20 141/57 (85) 94 09/29/19 05:30 60 20 151/59 (89) 96 09/29/19 05:19 158/61 09/29/19 05:19 63 158/61 09/29/19 05:15 62 20 158/61 (93) 96 09/29/19 05:08 60 20 80 09/29/19 05:00 20 Mechanical Ventilator 80 09/29/19 05:00 20 152/67 Mechanical Ventilator 80 09/29/19 05:00 60 20 152/67 (95) 96 09/29/19 04:45 61 19 148/58 (88) 96 09/29/19 04:30 63 20 149/59 (89) 96 09/29/19 04:20 68 28 155/67 (96) 96 09/29/19 04:00 Mechanical Ventilator Mechanical Ventilator 09/29/19 04:00 98.6 61 21 157/64 (95) 96 09/29/19 04:00 61 09/29/19 04:00 17 Mechanical Ventilator 80 09/29/19 04:00 21 157/64 Mechanical Ventilator 80 09/29/19 04:00 80 09/29/19 03:45 60 20 153/58 (89) 93 09/29/19 03:30 61 20 153/57 (89) 92 09/29/19 03:25 61 20 80 09/29/19 03:15 61 20 153/56 (88) 93 09/29/19 03:00 20 Mechanical Ventilator 80 09/29/19 03:00 20 153/56 Mechanical Ventilator 80 09/29/19 03:00 62 20 154/58 (90) 92 09/29/19 02:45 61 20 162/60 (94) 95 09/29/19 02:30 63 20 170/59 (96) 95 09/29/19 02:00 17 Mechanical Ventilator 80 09/29/19 02:00 19 149/98 Mechanical Ventilator 80 09/29/19 02:00 65 20 148/98 (115) 99 09/29/19 01:30 59 20 171/62 (98) 100 09/29/19 01:19 58 20 100 Mechanical Ventilator 80 62 20 80 09/29/19 01:15 57 20 171/62 (98) 100 09/29/19 01:00 61 19 168/65 (99) 100 09/29/19 01:00 20 Mechanical Ventilator 10.0 80 09/29/19 01:00 17 125/62 Mechanical Ventilator 80 09/29/19 00:59 Mechanical Ventilator 80 09/29/19 00:59 20 159/58 Non-Rebreather 10.0 80 09/29/19 00:45 57 20 165/59 (94) 99 09/29/19 00:30 56 20 162/59 (93) 99 09/29/19 00:24 159/58 09/29/19 00:15 57 20 159/58 (91) 99 09/29/19 00:00 98.5 58 20 161/59 (93) 98 09/29/19 00:00 19 Mechanical Ventilator 55 09/29/19 00:00 20 159/58 Mechanical Ventilator 80 09/29/19 00:00 71 09/29/19 00:00 Mechanical Ventilator Mechanical Ventilator 09/29/19 00:00 80 09/29/19 00:00 63 09/28/19 23:45 58 20 161/60 (93) 99 09/28/19 23:30 59 20 164/65 (98) 99 09/28/19 23:15 59 20 165/60 (95) 100 09/28/19 23:00 59 21 166/62 (96) 100 09/28/19 23:00 58 20 80 09/28/19 23:00 17 Mechanical Ventilator 55 09/28/19 23:00 18 129/61 Mechanical Ventilator 80 09/28/19 22:45 18 134/68 Mechanical Ventilator 80 09/28/19 22:45 60 20 160/60 (93) 100 09/28/19 22:30 60 20 160/63 (95) 100 09/28/19 22:30 18 130/59 Mechanical Ventilator 80 09/28/19 22:26 67 156/61 09/28/19 22:15 62 20 156/65 (95) 79 09/28/19 22:00 62 20 164/63 (96) 96 09/28/19 22:00 19 Mechanical Ventilator 80 09/28/19 22:00 20 156/68 Non-Rebreather 80 09/28/19 21:45 63 21 158/66 (96) 95 09/28/19 21:30 65 20 141/57 (85) 92 09/28/19 21:23 67 20 80 09/28/19 21:15 67 20 142/59 (86) 93 09/28/19 21:00 20 142/59 Mechanical Ventilator 80 09/28/19 21:00 69 20 153/62 (92) 95 09/28/19 20:45 70 20 144/66 (92) 96 09/28/19 20:41 72 143/60 09/28/19 20:30 73 20 143/60 (87) 96 09/28/19 20:15 79 19 164/66 (98) 98 09/28/19 20:00 80 09/28/19 20:00 Mechanical Ventilator Mechanical Ventilator 09/28/19 20:00 99.6 72 20 160/64 (96) 100 09/28/19 20:00 20 164/66 Mechanical Ventilator 80 09/28/19 19:45 76 18 167/67 (100) 100 09/28/19 19:35 72 24 99 Mechanical Ventilator 80 74 20 80 09/28/19 19:30 72 27 141/60 (87) 96 09/28/19 19:15 71 21 145/59 (87) 95 09/28/19 19:00 73 22 136/59 (84) 96 09/28/19 19:00 20 Mechanical Ventilator 80 09/28/19 19:00 20 145/59 Mechanical Ventilator 80 09/28/19 18:00 20 Mechanical Ventilator 80 09/28/19 18:00 20 138/53 Mechanical Ventilator 80 09/28/19 18:00 69 20 130/54 (79) 96 09/28/19 17:14 147/58 09/28/19 17:00 20 Mechanical Ventilator 80 09/28/19 17:00 20 138/53 Mechanical Ventilator 80 09/28/19 17:00 73 19 122/55 (77) 96 09/28/19 16:45 75 20 123/61 (81) 94 09/28/19 16:42 76 27 80 09/28/19 16:30 75 21 133/60 (84) 95 09/28/19 16:15 76 21 138/65 (89) 94 09/28/19 16:00 71 09/28/19 16:00 80 09/28/19 16:00 98.6 74 20 143/68 (93) 94 09/28/19 16:00 24 Mechanical Ventilator 80 09/28/19 16:00 21 147/70 Mechanical Ventilator 80 09/28/19 16:00 Mechanical Ventilator Mechanical Ventilator 09/28/19 15:45 72 20 147/70 (95) 96 09/28/19 15:30 70 20 154/64 (94) 95 09/28/19 15:15 71 21 170/69 (102) 97 09/28/19 15:09 72 21 80 09/28/19 15:00 24 80 09/28/19 15:00 20 154/75 Mechanical Ventilator 09/28/19 15:00 71 20 155/72 (99) 69 09/28/19 14:45 73 20 154/75 (101) 86 09/28/19 14:30 79 22 164/86 (112) 99 09/28/19 14:15 79 19 150/60 (90) 98 09/28/19 14:00 76 19 155/59 (91) 100 09/28/19 14:00 24 Mechanical Ventilator 80 09/28/19 14:00 20 149/62 Mechanical Ventilator 80 09/28/19 13:45 74 20 149/62 (91) 99 09/28/19 13:34 75 147/55 09/28/19 13:33 24 Mechanical Ventilator 80 09/28/19 13:30 73 20 139/55 (83) 100 09/28/19 13:20 73 20 100 Mechanical Ventilator 80 76 20 100 09/28/19 13:15 74 20 141/54 (83) 99 09/28/19 13:00 20 Mechanical Ventilator 80 09/28/19 13:00 20 137/49 Mechanical Ventilator 80 09/28/19 13:00 77 22 155/60 (91) 99 09/28/19 12:45 73 20 140/57 (84) 97 09/28/19 12:44 20 157/61 Mechanical Ventilator 80 09/28/19 12:30 72 20 137/49 (78) 98 09/28/19 12:15 72 20 137/49 (78) 98 09/28/19 12:00 75 09/28/19 12:00 98.2 74 20 139/55 (83) 99 09/28/19 12:00 22 Mechanical Ventilator 80 09/28/19 12:00 80 09/28/19 12:00 Mechanical Ventilator Mechanical Ventilator 09/28/19 11:45 77 20 166/74 (104) 100 09/28/19 11:30 79 19 165/65 (98) 100 09/28/19 11:28 146/58 09/28/19 11:15 75 20 146/67 (93) 100 09/28/19 11:11 76 23 80 09/28/19 11:00 78 18 171/71 (104) 100 09/28/19 11:00 20 Mechanical Ventilator 80 09/28/19 11:00 20 146/67 Mechanical Ventilator 80 09/28/19 10:45 72 18 172/73 (106) 100 09/28/19 10:30 68 20 164/62 (96) 98 Objective: General Appearance: no apparent distress, bedridden middle age chronically ill looking female on vent AC 500-20-80% PEEP 5, sedated Lines, tubes and drains: left jugular HD catheter HEENT: normocephalic, atraumatic, anicteric, trach - Shiley #7 cuffed XLT, secretions small amount, yellow color , thick consistency Respiratory/Chest: no accessory muscle use, few scattered rhonchi bilaterally , Cardiovascular/Chest: normal rate, regular rhythm - SR on tele Abdomen: normal bowel sounds, non tender, soft, G tube Genitourinary/Rectal: Norman Extremities: no edema Skin Exam: warm/dry, multiple tattoos all over the body Neurologic: abnormal gait, sedated Musculoskeletal: atrophy - BLE Micro: Microbiology Date/Time Source Procedure Growth Status 09/27/19 10:00 Blood Blood Culture - Preliminary NO GROWTH AFTER 24 HOURS Resulted 09/27/19 09:45 Blood Blood Culture - Preliminary NO GROWTH AFTER 24 HOURS Resulted Critical Care - Subjective ROS Limited/Unobtainable: Yes Interval Events: on vent AC 500-80%-20 PEEP5 ABG stable this am CXR w/out much change remains afebrile, no leukocytosis sedated: Fentanyl and Versed gtt Condition: critical IV Access: central - Lt jugular HD catheter EKG Rhythm: Sinus Rhythm FI02: 80 Vent Support Breath Rate: 20 Vent Support Mode: AC Vent Tidal Volume: 500 Sputum Amount: Small PEEP: 5.0 PIP: 22 Drips: Versed gtt 4 mg/hr , Fentanyl gtt 260 mvg/hr Tube Feeding Amount: 40 I&O: Intake and Output 8/15/20 8/16/20 19:00 07:00 Intake Total 962.000 ml 1255.50 ml Output Total 680 ml 90 ml Balance 282.000 ml 1165.50 ml Intake Free Water 30 ml IV Total 427.000 ml 600.50 ml Tube Feeding 255 ml 475 ml Blood Product 250 ml Other 180 ml Output Urine Total 80 ml 70 ml Gastric Drainage Total 600 ml 20 ml CXR: CXR 09/28 1. No significant change in perihilar pulmonary edema and pulmonary vascular congestion. 2. Subsegmental atelectasis versus infiltrates in the medial lung bases. Bang Guardado MD 09/29/192039: Critical Care - Asmt/Plan Assessment/Plan: Patient seen and examined with FL[employer]ER SEALER. Agree with above A&P as it reflects our joint deliberations. CC Time: 40 min Yara Castro NP Sep 29, 2019 10:28 Bang Guardado MD Sep 29, 2019 20:40
--- NOTE | 2019-09-29 11:34 | Nephrology Progress Note ---
Assessment/Plan Problem List: (1) JAVIER (acute kidney injury) (2) Renal failure (ARF), acute on chronic (3) Dehydration (4) Electrolyte imbalance (5) Anemia (6) Respiratory failure, acute and chronic (7) COPD with exacerbation Assessment Patient is presented with sepsis and pneumonia and UTI Patient has acute renal failure, possible underlying chronic kidney failure Severe anemia Electrolyte imbalances: Hyponatremia, hypo-kalemia Chronic respiratory failure, COPD exacerbation Plan September 28: Lab reviewed. ABG reviewed. Potassium supplement given. No dialysis at this point. Will eval patient status and renal parameters daily. September 27: Lab reviewed. Last dialysis September 25. Continue to monitor renal parameters. Hemodialysis as needed. September 26: Lab reviewed. Dialyzed yesterday. Potassium supplement given. Medication list reviewed. Will observe renal parameters and arrange for dialysis as needed. September 25: Lab reviewed. Currently on hemodialysis. Tolerating well. Stable from renal standpoint of view. Blood pressure medication adjusted by increasing hydralazine. September 24: Lab reviewed. ABG reviewed. Both lab and ABG much improved. Patient was dialyzed yesterday. We will attempt dialysis tomorrow again. Will adjust that blood pressure medication dosages. September 23: Lab reviewed. ABG reviewed. Patient acidotic. IV bicarb 1 dose is given. Patient has dialysis catheter. Will order dialysis for ultrafiltration and correction of acid-base. Discussed with ERASMO Mohr. September 22: Labs reviewed. Potassium high. Kayexalate and Reglan given. Will discuss with the consultants regarding initiation of dialysis. September 21: Patient is being sedated. Labs reviewed. Potassium supplement discontinued. GFR 20. Continue per current treatment plan. Dialysis and ultrafiltration is a consideration. September 20: Patient periodically agitated. Labs reviewed. Creatinine 2.4. Medication reviewed. Continue per consultants. Calculated creatinine clearance 21. May need isolated ultrafiltration on dialysis. Will discuss with PMD. Meanwhile hemoglobin is lower, defer transfusion to PMD. September 19: DC IV fluid. Zaroxolyn via GT tube. Potassium supplement. Attempt to diurese. Chest CT as bilateral pleural effusion. If diuresis unsuccessful, will consider dialysis and ultrafiltration. September 18: Potassium supplement IV given. Hemoglobin stable. Patient remains full code. Continue per consultants. Previously: Potassium supplement IV Slow IV hydration Epogen subcu Adjust blood pressure medication IV fluid, rate adjusted Norman catheter, intake and output Monitor renal parameters Avoid nephrotoxic's Antibiotics Per orders 2D echocardiogram Kidney ultrasound Subjective ROS Limited/Unobtainable: Yes Objective Objective Last 24 Hour Vital Signs Date Time Temp Pulse Resp B/P (MAP) Pulse Ox O2 Delivery O2 Flow Rate FiO2 09/29/19 11:00 82 24 140/61 (87) 95 09/29/19 11:00 24 140/61 Mechanical Ventilator 80 09/29/19 10:57 19 154/68 Mechanical Ventilator 80 09/29/19 10:45 81 19 154/68 (96) 95 09/29/19 10:35 66 20 80 09/29/19 10:30 67 20 132/57 (82) 93 09/29/19 10:00 69 23 145/61 (89) 94 09/29/19 10:00 23 Mechanical Ventilator 80 09/29/19 09:37 20 138/51 Mechanical Ventilator 80 09/29/19 09:30 66 20 138/51 (80) 89 09/29/19 09:00 20 Mechanical Ventilator 80 09/29/19 09:00 20 134/48 Mechanical Ventilator 80 09/29/19 09:00 66 20 80 09/29/19 09:00 66 20 134/48 (76) 95 09/29/19 08:46 63 157/63 09/29/19 08:30 63 20 131/50 (77) 94 09/29/19 08:11 59 20 95 Mechanical Ventilator 80 62 20 80 09/29/19 08:04 63 09/29/19 08:00 80 09/29/19 08:00 20 Mechanical Ventilator 80 09/29/19 08:00 20 157/63 Mechanical Ventilator 80 09/29/19 08:00 Mechanical Ventilator Mechanical Ventilator 09/29/19 08:00 99.0 66 20 157/63 (94) 96 09/29/19 07:30 59 20 136/56 (82) 92 09/29/19 07:15 59 20 134/53 (80) 91 09/29/19 07:00 60 20 120/48 (72) 92 09/29/19 07:00 20 Mechanical Ventilator 80 09/29/19 07:00 20 120/48 Mechanical Ventilator 80 09/29/19 06:45 59 20 128/51 (76) 92 09/29/19 06:30 58 20 135/55 (81) 92 09/29/19 06:15 60 20 134/55 (81) 92 09/29/19 06:00 61 20 139/55 (83) 93 09/29/19 06:00 20 Mechanical Ventilator 80 09/29/19 06:00 20 139/55 Mechanical Ventilator 80 09/29/19 05:48 98.6 09/29/19 05:45 60 20 141/57 (85) 94 09/29/19 05:30 60 20 151/59 (89) 96 09/29/19 05:19 158/61 09/29/19 05:19 63 158/61 09/29/19 05:15 62 20 158/61 (93) 96 09/29/19 05:08 60 20 80 09/29/19 05:00 20 Mechanical Ventilator 80 09/29/19 05:00 20 152/67 Mechanical Ventilator 80 09/29/19 05:00 60 20 152/67 (95) 96 09/29/19 04:45 61 19 148/58 (88) 96 09/29/19 04:30 63 20 149/59 (89) 96 09/29/19 04:20 68 28 155/67 (96) 96 09/29/19 04:00 Mechanical Ventilator Mechanical Ventilator 09/29/19 04:00 98.6 61 21 157/64 (95) 96 09/29/19 04:00 61 09/29/19 04:00 17 Mechanical Ventilator 80 09/29/19 04:00 21 157/64 Mechanical Ventilator 80 09/29/19 04:00 80 09/29/19 03:45 60 20 153/58 (89) 93 09/29/19 03:30 61 20 153/57 (89) 92 09/29/19 03:25 61 20 80 09/29/19 03:15 61 20 153/56 (88) 93 09/29/19 03:00 20 Mechanical Ventilator 80 09/29/19 03:00 20 153/56 Mechanical Ventilator 80 09/29/19 03:00 62 20 154/58 (90) 92 09/29/19 02:45 61 20 162/60 (94) 95 09/29/19 02:30 63 20 170/59 (96) 95 09/29/19 02:00 17 Mechanical Ventilator 80 09/29/19 02:00 19 149/98 Mechanical Ventilator 80 09/29/19 02:00 65 20 148/98 (115) 99 09/29/19 01:30 59 20 171/62 (98) 100 09/29/19 01:19 58 20 100 Mechanical Ventilator 80 62 20 80 09/29/19 01:15 57 20 171/62 (98) 100 09/29/19 01:00 61 19 168/65 (99) 100 09/29/19 01:00 20 Mechanical Ventilator 10.0 80 09/29/19 01:00 17 125/62 Mechanical Ventilator 80 09/29/19 00:59 Mechanical Ventilator 80 09/29/19 00:59 20 159/58 Non-Rebreather 10.0 80 09/29/19 00:45 57 20 165/59 (94) 99 09/29/19 00:30 56 20 162/59 (93) 99 09/29/19 00:24 159/58 09/29/19 00:15 57 20 159/58 (91) 99 09/29/19 00:00 98.5 58 20 161/59 (93) 98 09/29/19 00:00 19 Mechanical Ventilator 55 09/29/19 00:00 20 159/58 Mechanical Ventilator 80 09/29/19 00:00 71 09/29/19 00:00 Mechanical Ventilator Mechanical Ventilator 09/29/19 00:00 80 09/29/19 00:00 63 09/28/19 23:45 58 20 161/60 (93) 99 09/28/19 23:30 59 20 164/65 (98) 99 09/28/19 23:15 59 20 165/60 (95) 100 09/28/19 23:00 59 21 166/62 (96) 100 09/28/19 23:00 58 20 80 09/28/19 23:00 17 Mechanical Ventilator 55 09/28/19 23:00 18 129/61 Mechanical Ventilator 80 09/28/19 22:45 18 134/68 Mechanical Ventilator 80 09/28/19 22:45 60 20 160/60 (93) 100 09/28/19 22:30 60 20 160/63 (95) 100 09/28/19 22:30 18 130/59 Mechanical Ventilator 80 09/28/19 22:26 67 156/61 09/28/19 22:15 62 20 156/65 (95) 79 09/28/19 22:00 62 20 164/63 (96) 96 09/28/19 22:00 19 Mechanical Ventilator 80 09/28/19 22:00 20 156/68 Non-Rebreather 80 09/28/19 21:45 63 21 158/66 (96) 95 09/28/19 21:30 65 20 141/57 (85) 92 09/28/19 21:23 67 20 80 09/28/19 21:15 67 20 142/59 (86) 93 09/28/19 21:00 20 142/59 Mechanical Ventilator 80 09/28/19 21:00 69 20 153/62 (92) 95 09/28/19 20:45 70 20 144/66 (92) 96 09/28/19 20:41 72 143/60 09/28/19 20:30 73 20 143/60 (87) 96 09/28/19 20:15 79 19 164/66 (98) 98 09/28/19 20:00 80 09/28/19 20:00 Mechanical Ventilator Mechanical Ventilator 09/28/19 20:00 99.6 72 20 160/64 (96) 100 09/28/19 20:00 20 164/66 Mechanical Ventilator 80 09/28/19 19:45 76 18 167/67 (100) 100 09/28/19 19:35 72 24 99 Mechanical Ventilator 80 74 20 80 09/28/19 19:30 72 27 141/60 (87) 96 09/28/19 19:15 71 21 145/59 (87) 95 09/28/19 19:00 73 22 136/59 (84) 96 09/28/19 19:00 20 Mechanical Ventilator 80 09/28/19 19:00 20 145/59 Mechanical Ventilator 80 09/28/19 18:00 20 Mechanical Ventilator 80 09/28/19 18:00 20 138/53 Mechanical Ventilator 80 09/28/19 18:00 69 20 130/54 (79) 96 09/28/19 17:14 147/58 09/28/19 17:00 20 Mechanical Ventilator 80 09/28/19 17:00 20 138/53 Mechanical Ventilator 80 09/28/19 17:00 73 19 122/55 (77) 96 09/28/19 16:45 75 20 123/61 (81) 94 09/28/19 16:42 76 27 80 09/28/19 16:30 75 21 133/60 (84) 95 09/28/19 16:15 76 21 138/65 (89) 94 09/28/19 16:00 71 09/28/19 16:00 80 09/28/19 16:00 98.6 74 20 143/68 (93) 94 09/28/19 16:00 24 Mechanical Ventilator 80 09/28/19 16:00 21 147/70 Mechanical Ventilator 80 09/28/19 16:00 Mechanical Ventilator Mechanical Ventilator 09/28/19 15:45 72 20 147/70 (95) 96 09/28/19 15:30 70 20 154/64 (94) 95 09/28/19 15:15 71 21 170/69 (102) 97 09/28/19 15:09 72 21 80 09/28/19 15:00 24 80 09/28/19 15:00 20 154/75 Mechanical Ventilator 09/28/19 15:00 71 20 155/72 (99) 69 09/28/19 14:45 73 20 154/75 (101) 86 09/28/19 14:30 79 22 164/86 (112) 99 09/28/19 14:15 79 19 150/60 (90) 98 09/28/19 14:00 76 19 155/59 (91) 100 09/28/19 14:00 24 Mechanical Ventilator 80 09/28/19 14:00 20 149/62 Mechanical Ventilator 80 09/28/19 13:45 74 20 149/62 (91) 99 09/28/19 13:34 75 147/55 09/28/19 13:33 24 Mechanical Ventilator 80 09/28/19 13:30 73 20 139/55 (83) 100 09/28/19 13:20 73 20 100 Mechanical Ventilator 80 76 20 100 09/28/19 13:15 74 20 141/54 (83) 99 09/28/19 13:00 20 Mechanical Ventilator 80 09/28/19 13:00 20 137/49 Mechanical Ventilator 80 09/28/19 13:00 77 22 155/60 (91) 99 09/28/19 12:45 73 20 140/57 (84) 97 09/28/19 12:44 20 157/61 Mechanical Ventilator 80 09/28/19 12:30 72 20 137/49 (78) 98 09/28/19 12:15 72 20 137/49 (78) 98 09/28/19 12:00 75 09/28/19 12:00 98.2 74 20 139/55 (83) 99 09/28/19 12:00 22 Mechanical Ventilator 80 09/28/19 12:00 80 09/28/19 12:00 Mechanical Ventilator Mechanical Ventilator 09/28/19 11:45 77 20 166/74 (104) 100 Intake and Output 09/28/19 09/29/19 19:00 07:00 Intake Total 962.000 ml 1255.50 ml Output Total 680 ml 90 ml Balance 282.000 ml 1165.50 ml Intake Free Water 30 ml IV Total 427.000 ml 600.50 ml Tube Feeding 255 ml 475 ml Blood Product 250 ml Other 180 ml Output Urine Total 80 ml 70 ml Gastric Drainage Total 600 ml 20 ml Laboratory Tests 09/29/19 05:01: White Blood Count 9.3, Red Blood Count 2.74L, Hemoglobin 8.7L, Hematocrit 26.6L , Mean Corpuscular Volume 97, Mean Corpuscular Hemoglobin 31.5H, Mean Corpuscular Hemoglobin Concent 32.5, Red Cell Distribution Width 16.1H, Platelet Count 252, Mean Platelet Volume 6.1L, Neutrophils (%) (Auto) 74.3, Lymphocytes (%) (Auto) 15.6L, Monocytes (%) (Auto) 3.8, Eosinophils (%) (Auto) 5.7H, Basophils (%) (Auto) 0.5, Sodium Level 141, Potassium Level 3.4L, Chloride Level 101, Carbon Dioxide Level 26, Blood Urea Nitrogen 76H, Creatinine 2.5H, Estimat Glomerular Filtration Rate 20.6, Glucose Level 64L, Uric Acid 2.4L, Calcium Level 8.9, Phosphorus Level 3.2, Magnesium Level 1.8, Total Bilirubin 0.3, Gamma Glutamyl Transpeptidase 84, Aspartate Amino Transf ( AST/SGOT) 22, Alanine Aminotransferase (ALT/SGPT) 7L, Alkaline Phosphatase 143H , Total Creatine Kinase 17L, Total Protein 6.3L, Albumin 1.8L, Globulin 4.5, Albumin/Globulin Ratio 0.4L, Random Gentamicin Level 2.0, Random Vancomycin Level 16.3 09/29/19 08:02: Arterial Blood pH 7.431, Arterial Blood Partial Pressure CO2 40.7, Arterial Blood Partial Pressure O2 72.7L, Arterial Blood HCO3 26.5H, Arterial Blood Oxygen Saturation 94.0L, Arterial Blood Base Excess 2.0, Rojas Test Positive Height (Feet): 5 Height (Inches): 5.00 Weight (Pounds): 132 General Appearance: no apparent distress EENT: other - On mechanical ventilation Cardiovascular: normal rate Respiratory/Chest: decreased breath sounds Abdomen: soft Objective No change Johnny Houston MD Sep 29, 2019 11:34
--- NOTE | 2019-09-29 11:34 | Surgery Progress Note ---
Surgery Progress Note Subjective Additional Comments weaned off fentanyl but now becoming agitated and fighting vent again on versed uncomfortable Objective Last 24 Hour Vital Signs Date Time Temp Pulse Resp B/P (MAP) Pulse Ox O2 Delivery O2 Flow Rate FiO2 09/29/19 11:00 82 24 140/61 (87) 95 09/29/19 11:00 24 140/61 Mechanical Ventilator 80 09/29/19 10:57 19 154/68 Mechanical Ventilator 80 09/29/19 10:45 81 19 154/68 (96) 95 09/29/19 10:35 66 20 80 09/29/19 10:30 67 20 132/57 (82) 93 09/29/19 10:00 69 23 145/61 (89) 94 09/29/19 10:00 23 Mechanical Ventilator 80 09/29/19 09:37 20 138/51 Mechanical Ventilator 80 09/29/19 09:30 66 20 138/51 (80) 89 09/29/19 09:00 20 Mechanical Ventilator 80 09/29/19 09:00 20 134/48 Mechanical Ventilator 80 09/29/19 09:00 66 20 80 09/29/19 09:00 66 20 134/48 (76) 95 09/29/19 08:46 63 157/63 09/29/19 08:30 63 20 131/50 (77) 94 09/29/19 08:11 59 20 95 Mechanical Ventilator 80 62 20 80 09/29/19 08:04 63 09/29/19 08:00 80 09/29/19 08:00 20 Mechanical Ventilator 80 09/29/19 08:00 20 157/63 Mechanical Ventilator 80 09/29/19 08:00 Mechanical Ventilator Mechanical Ventilator 09/29/19 08:00 99.0 66 20 157/63 (94) 96 09/29/19 07:30 59 20 136/56 (82) 92 09/29/19 07:15 59 20 134/53 (80) 91 09/29/19 07:00 60 20 120/48 (72) 92 09/29/19 07:00 20 Mechanical Ventilator 80 09/29/19 07:00 20 120/48 Mechanical Ventilator 80 09/29/19 06:45 59 20 128/51 (76) 92 09/29/19 06:30 58 20 135/55 (81) 92 09/29/19 06:15 60 20 134/55 (81) 92 09/29/19 06:00 61 20 139/55 (83) 93 09/29/19 06:00 20 Mechanical Ventilator 80 09/29/19 06:00 20 139/55 Mechanical Ventilator 80 09/29/19 05:48 98.6 09/29/19 05:45 60 20 141/57 (85) 94 09/29/19 05:30 60 20 151/59 (89) 96 09/29/19 05:19 158/61 09/29/19 05:19 63 158/61 09/29/19 05:15 62 20 158/61 (93) 96 09/29/19 05:08 60 20 80 09/29/19 05:00 20 Mechanical Ventilator 80 09/29/19 05:00 20 152/67 Mechanical Ventilator 80 09/29/19 05:00 60 20 152/67 (95) 96 09/29/19 04:45 61 19 148/58 (88) 96 09/29/19 04:30 63 20 149/59 (89) 96 09/29/19 04:20 68 28 155/67 (96) 96 09/29/19 04:00 Mechanical Ventilator Mechanical Ventilator 09/29/19 04:00 98.6 61 21 157/64 (95) 96 09/29/19 04:00 61 09/29/19 04:00 17 Mechanical Ventilator 80 09/29/19 04:00 21 157/64 Mechanical Ventilator 80 09/29/19 04:00 80 09/29/19 03:45 60 20 153/58 (89) 93 09/29/19 03:30 61 20 153/57 (89) 92 09/29/19 03:25 61 20 80 09/29/19 03:15 61 20 153/56 (88) 93 09/29/19 03:00 20 Mechanical Ventilator 80 09/29/19 03:00 20 153/56 Mechanical Ventilator 80 09/29/19 03:00 62 20 154/58 (90) 92 09/29/19 02:45 61 20 162/60 (94) 95 09/29/19 02:30 63 20 170/59 (96) 95 09/29/19 02:00 17 Mechanical Ventilator 80 09/29/19 02:00 19 149/98 Mechanical Ventilator 80 09/29/19 02:00 65 20 148/98 (115) 99 09/29/19 01:30 59 20 171/62 (98) 100 09/29/19 01:19 58 20 100 Mechanical Ventilator 80 62 20 80 09/29/19 01:15 57 20 171/62 (98) 100 09/29/19 01:00 61 19 168/65 (99) 100 09/29/19 01:00 20 Mechanical Ventilator 10.0 80 09/29/19 01:00 17 125/62 Mechanical Ventilator 80 09/29/19 00:59 Mechanical Ventilator 80 09/29/19 00:59 20 159/58 Non-Rebreather 10.0 80 09/29/19 00:45 57 20 165/59 (94) 99 09/29/19 00:30 56 20 162/59 (93) 99 09/29/19 00:24 159/58 09/29/19 00:15 57 20 159/58 (91) 99 09/29/19 00:00 98.5 58 20 161/59 (93) 98 09/29/19 00:00 19 Mechanical Ventilator 55 09/29/19 00:00 20 159/58 Mechanical Ventilator 80 09/29/19 00:00 71 09/29/19 00:00 Mechanical Ventilator Mechanical Ventilator 09/29/19 00:00 80 09/29/19 00:00 63 09/28/19 23:45 58 20 161/60 (93) 99 09/28/19 23:30 59 20 164/65 (98) 99 09/28/19 23:15 59 20 165/60 (95) 100 09/28/19 23:00 59 21 166/62 (96) 100 09/28/19 23:00 58 20 80 09/28/19 23:00 17 Mechanical Ventilator 55 09/28/19 23:00 18 129/61 Mechanical Ventilator 80 09/28/19 22:45 18 134/68 Mechanical Ventilator 80 09/28/19 22:45 60 20 160/60 (93) 100 09/28/19 22:30 60 20 160/63 (95) 100 09/28/19 22:30 18 130/59 Mechanical Ventilator 80 09/28/19 22:26 67 156/61 09/28/19 22:15 62 20 156/65 (95) 79 09/28/19 22:00 62 20 164/63 (96) 96 09/28/19 22:00 19 Mechanical Ventilator 80 09/28/19 22:00 20 156/68 Non-Rebreather 80 09/28/19 21:45 63 21 158/66 (96) 95 09/28/19 21:30 65 20 141/57 (85) 92 09/28/19 21:23 67 20 80 09/28/19 21:15 67 20 142/59 (86) 93 09/28/19 21:00 20 142/59 Mechanical Ventilator 80 09/28/19 21:00 69 20 153/62 (92) 95 09/28/19 20:45 70 20 144/66 (92) 96 09/28/19 20:41 72 143/60 09/28/19 20:30 73 20 143/60 (87) 96 09/28/19 20:15 79 19 164/66 (98) 98 09/28/19 20:00 80 09/28/19 20:00 Mechanical Ventilator Mechanical Ventilator 09/28/19 20:00 99.6 72 20 160/64 (96) 100 09/28/19 20:00 20 164/66 Mechanical Ventilator 80 09/28/19 19:45 76 18 167/67 (100) 100 09/28/19 19:35 72 24 99 Mechanical Ventilator 80 74 20 80 09/28/19 19:30 72 27 141/60 (87) 96 09/28/19 19:15 71 21 145/59 (87) 95 09/28/19 19:00 73 22 136/59 (84) 96 09/28/19 19:00 20 Mechanical Ventilator 80 09/28/19 19:00 20 145/59 Mechanical Ventilator 80 09/28/19 18:00 20 Mechanical Ventilator 80 09/28/19 18:00 20 138/53 Mechanical Ventilator 80 09/28/19 18:00 69 20 130/54 (79) 96 09/28/19 17:14 147/58 09/28/19 17:00 20 Mechanical Ventilator 80 09/28/19 17:00 20 138/53 Mechanical Ventilator 80 09/28/19 17:00 73 19 122/55 (77) 96 09/28/19 16:45 75 20 123/61 (81) 94 09/28/19 16:42 76 27 80 09/28/19 16:30 75 21 133/60 (84) 95 09/28/19 16:15 76 21 138/65 (89) 94 09/28/19 16:00 71 09/28/19 16:00 80 09/28/19 16:00 98.6 74 20 143/68 (93) 94 09/28/19 16:00 24 Mechanical Ventilator 80 09/28/19 16:00 21 147/70 Mechanical Ventilator 80 09/28/19 16:00 Mechanical Ventilator Mechanical Ventilator 09/28/19 15:45 72 20 147/70 (95) 96 09/28/19 15:30 70 20 154/64 (94) 95 09/28/19 15:15 71 21 170/69 (102) 97 09/28/19 15:09 72 21 80 09/28/19 15:00 24 80 09/28/19 15:00 20 154/75 Mechanical Ventilator 09/28/19 15:00 71 20 155/72 (99) 69 09/28/19 14:45 73 20 154/75 (101) 86 09/28/19 14:30 79 22 164/86 (112) 99 09/28/19 14:15 79 19 150/60 (90) 98 09/28/19 14:00 76 19 155/59 (91) 100 09/28/19 14:00 24 Mechanical Ventilator 80 09/28/19 14:00 20 149/62 Mechanical Ventilator 80 09/28/19 13:45 74 20 149/62 (91) 99 09/28/19 13:34 75 147/55 09/28/19 13:33 24 Mechanical Ventilator 80 09/28/19 13:30 73 20 139/55 (83) 100 09/28/19 13:20 73 20 100 Mechanical Ventilator 80 76 20 100 09/28/19 13:15 74 20 141/54 (83) 99 09/28/19 13:00 20 Mechanical Ventilator 80 09/28/19 13:00 20 137/49 Mechanical Ventilator 80 09/28/19 13:00 77 22 155/60 (91) 99 09/28/19 12:45 73 20 140/57 (84) 97 09/28/19 12:44 20 157/61 Mechanical Ventilator 80 09/28/19 12:30 72 20 137/49 (78) 98 09/28/19 12:15 72 20 137/49 (78) 98 09/28/19 12:00 75 09/28/19 12:00 98.2 74 20 139/55 (83) 99 09/28/19 12:00 22 Mechanical Ventilator 80 09/28/19 12:00 80 09/28/19 12:00 Mechanical Ventilator Mechanical Ventilator 09/28/19 11:45 77 20 166/74 (104) 100 I&O Intake and Output 09/28/19 09/29/19 19:00 07:00 Intake Total 962.000 ml 1255.50 ml Output Total 680 ml 90 ml Balance 282.000 ml 1165.50 ml Intake Free Water 30 ml IV Total 427.000 ml 600.50 ml Tube Feeding 255 ml 475 ml Blood Product 250 ml Other 180 ml Output Urine Total 80 ml 70 ml Gastric Drainage Total 600 ml 20 ml Cardiovascular: RSR Respiratory: decreased breath sounds Abdomen: soft, non-tender, present bowel sounds Extremities: edema, no cyanosis Laboratory Tests Test 09/29/19 05:01 09/29/19 08:02 White Blood Count 9.3 K/UL (4.8-10.8) Red Blood Count 2.74 M/UL (4.20-5.40) L Hemoglobin 8.7 G/DL (12.0-16.0) L Hematocrit 26.6 % (37.0-47.0) L Mean Corpuscular Volume 97 FL (80-99) Mean Corpuscular Hemoglobin 31.5 PG (27.0-31.0) H Mean Corpuscular Hemoglobin Concent 32.5 G/DL (32.0-36.0) Red Cell Distribution Width 16.1 % (11.6-14.8) H Platelet Count 252 K/UL (150-450) Mean Platelet Volume 6.1 FL (6.5-10.1) L Neutrophils (%) (Auto) 74.3 % (45.0-75.0) Lymphocytes (%) (Auto) 15.6 % (20.0-45.0) L Monocytes (%) (Auto) 3.8 % (1.0-10.0) Eosinophils (%) (Auto) 5.7 % (0.0-3.0) H Basophils (%) (Auto) 0.5 % (0.0-2.0) Sodium Level 141 MMOL/L (136-145) Potassium Level 3.4 MMOL/L (3.5-5.1) L Chloride Level 101 MMOL/L (98-107) Carbon Dioxide Level 26 MMOL/L (21-32) Blood Urea Nitrogen 76 mg/dL (7-18) H Creatinine 2.5 MG/DL (0.55-1.30) H Estimat Glomerular Filtration Rate 20.6 mL/min (>60) Glucose Level 64 MG/DL (74-106) L Uric Acid 2.4 MG/DL (2.6-7.2) L Calcium Level 8.9 MG/DL (8.5-10.1) Phosphorus Level 3.2 MG/DL (2.5-4.9) Magnesium Level 1.8 MG/DL (1.8-2.4) Total Bilirubin 0.3 MG/DL (0.2-1.0) Gamma Glutamyl Transpeptidase 84 U/L (5-85) Aspartate Amino Transf (AST/SGOT) 22 U/L (15-37) Alanine Aminotransferase (ALT/SGPT) 7 U/L (12-78) L Alkaline Phosphatase 143 U/L (46-116) H Total Creatine Kinase 17 U/L (26-308) L Total Protein 6.3 G/DL (6.4-8.2) L Albumin 1.8 G/DL (3.4-5.0) L Globulin 4.5 g/dL Albumin/Globulin Ratio 0.4 (1.0-2.7) L Random Gentamicin Level 2.0 ug/mL Random Vancomycin Level 16.3 ug/mL Arterial Blood pH 7.431 (7.350-7.450) Arterial Blood Partial Pressure CO2 40.7 mmHg (35.0-45.0) Arterial Blood Partial Pressure O2 72.7 mmHg (75.0-100.0) L Arterial Blood HCO3 26.5 mmol/L (22.0-26.0) H Arterial Blood Oxygen Saturation 94.0 % (95-100) L Arterial Blood Base Excess 2.0 (-2-2) Rojas Test Positive Plan Problems: (1) Anemia (2) Proteinuria (3) UTI (urinary tract infection) (4) ARF (acute renal failure) (5) ACS (acute coronary syndrome) (6) Respiratory failure, acute and chronic (7) HCAP (healthcare-associated pneumonia) (8) Abrasion of lip, initial encounter (9) COPD with exacerbation (10) Hypokalemia (11) Sepsis Assessment & Plan: Leukocytosis, anemia, abnormal labs. Renal insufficiency potentially dehydrated Abnormal LFTs alk phos elevated Urine noted significant bacteria likely UTI etiology Wound stable still requiring local care IV antibiotics per infectious disease Discussed with inweaver Dr. Berkowitz air mattress turn q2h nutritional tf will follow with recs thank you CT noted pending VQ scan - noted poor study low prob PE work respiratory increasing needs sedation weaning vent settings 80% peep 10 now comfortable Hd line in receiving HD plan for left thora 09/26 (12) Chronic respiratory failure (13) Ascites (14) Bacteremia (15) Hypernatremia (16) Pleural effusion (17) Pacemaker (18) Aortic dissection, thoracic (19) Tracheostomy in place Assessment & Plan: trach stable no bleeding currently likely tongue etiology of mild oozing currently hemostatic without trauma (20) Feeding by G-tube Assessment & Plan: okay to resume tube feeds via g tube patent and functional dressings okay DAILY ESTIMATED NEEDS: Needs based on Pulmonary, wound 49kg 30-35 kcals/kg 1961-0246 total kcals 1.25-2 g protein/kg 61-98 g total protein Fluid per MD NUTRITION DIAGNOSIS: * Swallowing difficulty R/T dysphagia, respiratory status as evidenced by vent dep via T-collar, GT Dep. (CURRENT TF: Nepro @45ml/hr x 24 hrs) ENTERAL NUTRITION RECOMMENDATIONS: Nepro @ 40ml/hr x 24 hrs to provide 960ml, 1728kcal, 78g prot, 698ml free water * Rec LOWER current rate to 40ml/hr for 24 hrs run. 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 Base of wound is granular with bone exposure at base of sacrococcygeal.(L)10.5cm x (W06.5cm x (D) 2.8cm , undermining 11-3 by 3.6cm @12 o'clock. small amt serosanguineous exudate noted . [place] epithelial along edges bordered by darker skin tone without erythema. Resolving Pressure injury L ischium. Base of wound is 95% pink epithelial ,5% noni at center base of wound. No exudate noted. Both heels are boggy with non-Blanching erythema. Tx.plan: Cleanse Sacral wound with Saline. Loosely pack with Hydrogel impregnated Kerlix. Apply Moisture Barrier Periwound. Cover with Optifoam drsg Daily and prn. Apply Moisture Barrier paste to L Ischium. Cover with Optifoam drsg. Changee very 3 days and prn. Apply Cavilon Skin Barrier to both heels. Cover each heel with Optifoam drsgs. Change every 7 days and prn. Reposition at least every 2hours or as tolerated. Off-load heels with pillow. APM/JENNIFER Mattress overlay. Lane Saavedra Sep 29, 2019 11:34
[2019-09-29] MEDS ORDERED: Albuterol/Ipratropium 3ml neb HHN SCH ×2 (13:00→22:00)
[2019-09-29] MEDS: Metoclopramide 10mg/2ml Inj IVP SCH ×2 (13:32→21:48)
--- NOTE | 2019-09-29 14:22 | General Progress Note ---
Assessment/Plan Assessment/Plan: Assessment/Plan Problem List: (1) S/P aortic dissection repair ICD Codes: Z98.890 - Other specified postprocedural states SNOMED: 401587436, 680670717 (2) Sacral decubitus ulcer, stage IV ICD Codes: L89.154 - Pressure ulcer of sacral region, stage 4 SNOMED: 742684002, 435036266 (3) Anemia ICD Codes: D64.9 - Anemia, unspecified SNOMED: 871001192 (4) GT CLOGGED (5) Feeding by G-tube/dysphagia ICD Codes: Z93.1 - Gastrostomy status SNOMED: 624630607, 435789351 (6) Tracheostomy in place ICD Codes: Z93.0 - Tracheostomy status SNOMED: 893664822 (7) Pacemaker ICD Codes: Z95.0 - Presence of cardiac pacemaker SNOMED: 066700517 (8) Chronic respiratory failure ICD Codes: J96.10 - Chronic respiratory failure, unspecified whether with hypoxia or hypercapnia SNOMED: 78010625 Assessment/Plan: anemia work up GT feeds follow labs Elevate HOB ICU care Subjective Allergies: Coded Allergies: No Known Allergies (Unverified , 10/10/17) Subjective Above noted seen in ICU d/w staff internist office based only tolerating TF Objective Last 24 Hour Vital Signs Date Time Temp Pulse Resp B/P (MAP) Pulse Ox O2 Delivery O2 Flow Rate FiO2 09/29/19 14:00 71 21 136/57 (83) 94 09/29/19 13:33 28 Mechanical Ventilator 80 09/29/19 13:32 75 133/58 09/29/19 13:30 74 21 140/61 (87) 96 09/29/19 13:00 78 23 80 09/29/19 13:00 75 28 133/58 (83) 95 09/29/19 12:31 130/57 09/29/19 12:30 75 27 128/55 (79) 95 09/29/19 12:00 20 130/57 Mechanical Ventilator 80 09/29/19 12:00 20 Mechanical Ventilator 80 09/29/19 12:00 Mechanical Ventilator Mechanical Ventilator 09/29/19 12:00 80 09/29/19 12:00 98.7 68 20 130/57 (81) 94 09/29/19 11:45 72 20 126/54 (78) 95 09/29/19 11:30 75 21 137/56 (83) 95 09/29/19 11:15 73 20 129/57 (81) 94 09/29/19 11:00 82 24 140/61 (87) 95 09/29/19 11:00 24 140/61 Mechanical Ventilator 80 09/29/19 11:00 24 Mechanical Ventilator 80 09/29/19 10:57 19 154/68 Mechanical Ventilator 80 09/29/19 10:45 81 19 154/68 (96) 95 09/29/19 10:35 66 20 80 09/29/19 10:30 67 20 132/57 (82) 93 09/29/19 10:00 69 23 145/61 (89) 94 09/29/19 10:00 23 Mechanical Ventilator 80 09/29/19 09:37 20 138/51 Mechanical Ventilator 80 09/29/19 09:30 66 20 138/51 (80) 89 09/29/19 09:00 20 Mechanical Ventilator 80 09/29/19 09:00 20 134/48 Mechanical Ventilator 80 09/29/19 09:00 66 20 80 09/29/19 09:00 66 20 134/48 (76) 95 09/29/19 08:46 63 157/63 09/29/19 08:30 63 20 131/50 (77) 94 09/29/19 08:11 59 20 95 Mechanical Ventilator 80 62 20 80 09/29/19 08:04 63 09/29/19 08:00 80 09/29/19 08:00 20 Mechanical Ventilator 80 09/29/19 08:00 20 157/63 Mechanical Ventilator 80 09/29/19 08:00 Mechanical Ventilator Mechanical Ventilator 09/29/19 08:00 99.0 66 20 157/63 (94) 96 09/29/19 07:30 59 20 136/56 (82) 92 09/29/19 07:15 59 20 134/53 (80) 91 09/29/19 07:00 60 20 120/48 (72) 92 09/29/19 07:00 20 Mechanical Ventilator 80 09/29/19 07:00 20 120/48 Mechanical Ventilator 80 09/29/19 06:45 59 20 128/51 (76) 92 09/29/19 06:30 58 20 135/55 (81) 92 09/29/19 06:15 60 20 134/55 (81) 92 09/29/19 06:00 61 20 139/55 (83) 93 09/29/19 06:00 20 Mechanical Ventilator 80 09/29/19 06:00 20 139/55 Mechanical Ventilator 80 09/29/19 05:48 98.6 09/29/19 05:45 60 20 141/57 (85) 94 09/29/19 05:30 60 20 151/59 (89) 96 09/29/19 05:19 158/61 09/29/19 05:19 63 158/61 09/29/19 05:15 62 20 158/61 (93) 96 09/29/19 05:08 60 20 80 09/29/19 05:00 20 Mechanical Ventilator 80 09/29/19 05:00 20 152/67 Mechanical Ventilator 80 09/29/19 05:00 60 20 152/67 (95) 96 09/29/19 04:45 61 19 148/58 (88) 96 09/29/19 04:30 63 20 149/59 (89) 96 09/29/19 04:20 68 28 155/67 (96) 96 09/29/19 04:00 Mechanical Ventilator Mechanical Ventilator 09/29/19 04:00 98.6 61 21 157/64 (95) 96 09/29/19 04:00 61 09/29/19 04:00 17 Mechanical Ventilator 80 09/29/19 04:00 21 157/64 Mechanical Ventilator 80 09/29/19 04:00 80 09/29/19 03:45 60 20 153/58 (89) 93 09/29/19 03:30 61 20 153/57 (89) 92 09/29/19 03:25 61 20 80 09/29/19 03:15 61 20 153/56 (88) 93 09/29/19 03:00 20 Mechanical Ventilator 80 09/29/19 03:00 20 153/56 Mechanical Ventilator 80 09/29/19 03:00 62 20 154/58 (90) 92 09/29/19 02:45 61 20 162/60 (94) 95 09/29/19 02:30 63 20 170/59 (96) 95 09/29/19 02:00 17 Mechanical Ventilator 80 09/29/19 02:00 19 149/98 Mechanical Ventilator 80 09/29/19 02:00 65 20 148/98 (115) 99 09/29/19 01:30 59 20 171/62 (98) 100 09/29/19 01:19 58 20 100 Mechanical Ventilator 80 62 20 80 09/29/19 01:15 57 20 171/62 (98) 100 09/29/19 01:00 61 19 168/65 (99) 100 09/29/19 01:00 20 Mechanical Ventilator 10.0 80 09/29/19 01:00 17 125/62 Mechanical Ventilator 80 09/29/19 00:59 Mechanical Ventilator 80 09/29/19 00:59 20 159/58 Non-Rebreather 10.0 80 09/29/19 00:45 57 20 165/59 (94) 99 09/29/19 00:30 56 20 162/59 (93) 99 09/29/19 00:24 159/58 09/29/19 00:15 57 20 159/58 (91) 99 09/29/19 00:00 98.5 58 20 161/59 (93) 98 09/29/19 00:00 19 Mechanical Ventilator 55 09/29/19 00:00 20 159/58 Mechanical Ventilator 80 09/29/19 00:00 71 09/29/19 00:00 Mechanical Ventilator Mechanical Ventilator 09/29/19 00:00 80 09/29/19 00:00 63 09/28/19 23:45 58 20 161/60 (93) 99 09/28/19 23:30 59 20 164/65 (98) 99 09/28/19 23:15 59 20 165/60 (95) 100 09/28/19 23:00 59 21 166/62 (96) 100 09/28/19 23:00 58 20 80 09/28/19 23:00 17 Mechanical Ventilator 55 09/28/19 23:00 18 129/61 Mechanical Ventilator 80 09/28/19 22:45 18 134/68 Mechanical Ventilator 80 09/28/19 22:45 60 20 160/60 (93) 100 09/28/19 22:30 60 20 160/63 (95) 100 09/28/19 22:30 18 130/59 Mechanical Ventilator 80 09/28/19 22:26 67 156/61 09/28/19 22:15 62 20 156/65 (95) 79 09/28/19 22:00 62 20 164/63 (96) 96 09/28/19 22:00 19 Mechanical Ventilator 80 09/28/19 22:00 20 156/68 Non-Rebreather 80 09/28/19 21:45 63 21 158/66 (96) 95 09/28/19 21:30 65 20 141/57 (85) 92 09/28/19 21:23 67 20 80 09/28/19 21:15 67 20 142/59 (86) 93 09/28/19 21:00 20 142/59 Mechanical Ventilator 80 09/28/19 21:00 69 20 153/62 (92) 95 09/28/19 20:45 70 20 144/66 (92) 96 09/28/19 20:41 72 143/60 09/28/19 20:30 73 20 143/60 (87) 96 09/28/19 20:15 79 19 164/66 (98) 98 09/28/19 20:00 80 09/28/19 20:00 Mechanical Ventilator Mechanical Ventilator 09/28/19 20:00 99.6 72 20 160/64 (96) 100 09/28/19 20:00 20 164/66 Mechanical Ventilator 80 09/28/19 19:45 76 18 167/67 (100) 100 09/28/19 19:35 72 24 99 Mechanical Ventilator 80 74 20 80 09/28/19 19:30 72 27 141/60 (87) 96 09/28/19 19:15 71 21 145/59 (87) 95 09/28/19 19:00 73 22 136/59 (84) 96 09/28/19 19:00 20 Mechanical Ventilator 80 09/28/19 19:00 20 145/59 Mechanical Ventilator 80 09/28/19 18:00 20 Mechanical Ventilator 80 09/28/19 18:00 20 138/53 Mechanical Ventilator 80 09/28/19 18:00 69 20 130/54 (79) 96 09/28/19 17:14 147/58 09/28/19 17:00 20 Mechanical Ventilator 80 09/28/19 17:00 20 138/53 Mechanical Ventilator 80 09/28/19 17:00 73 19 122/55 (77) 96 09/28/19 16:45 75 20 123/61 (81) 94 09/28/19 16:42 76 27 80 09/28/19 16:30 75 21 133/60 (84) 95 09/28/19 16:15 76 21 138/65 (89) 94 09/28/19 16:00 71 09/28/19 16:00 80 09/28/19 16:00 98.6 74 20 143/68 (93) 94 09/28/19 16:00 24 Mechanical Ventilator 80 09/28/19 16:00 21 147/70 Mechanical Ventilator 80 09/28/19 16:00 Mechanical Ventilator Mechanical Ventilator 09/28/19 15:45 72 20 147/70 (95) 96 09/28/19 15:30 70 20 154/64 (94) 95 09/28/19 15:15 71 21 170/69 (102) 97 09/28/19 15:09 72 21 80 09/28/19 15:00 24 80 09/28/19 15:00 20 154/75 Mechanical Ventilator 09/28/19 15:00 71 20 155/72 (99) 69 09/28/19 14:45 73 20 154/75 (101) 86 09/28/19 14:30 79 22 164/86 (112) 99 Intake and Output 09/28/19 09/29/19 19:00 07:00 Intake Total 962.000 ml 1255.50 ml Output Total 680 ml 90 ml Balance 282.000 ml 1165.50 ml Intake Free Water 30 ml IV Total 427.000 ml 600.50 ml Tube Feeding 255 ml 475 ml Blood Product 250 ml Other 180 ml Output Urine Total 80 ml 70 ml Gastric Drainage Total 600 ml 20 ml Laboratory Tests 09/29/19 05:01: White Blood Count 9.3, Red Blood Count 2.74L, Hemoglobin 8.7L, Hematocrit 26.6L , Mean Corpuscular Volume 97, Mean Corpuscular Hemoglobin 31.5H, Mean Corpuscular Hemoglobin Concent 32.5, Red Cell Distribution Width 16.1H, Platelet Count 252, Mean Platelet Volume 6.1L, Neutrophils (%) (Auto) 74.3, Lymphocytes (%) (Auto) 15.6L, Monocytes (%) (Auto) 3.8, Eosinophils (%) (Auto) 5.7H, Basophils (%) (Auto) 0.5, Sodium Level 141, Potassium Level 3.4L, Chloride Level 101, Carbon Dioxide Level 26, Blood Urea Nitrogen 76H, Creatinine 2.5H, Estimat Glomerular Filtration Rate 20.6, Glucose Level 64L, Uric Acid 2.4L, Calcium Level 8.9, Phosphorus Level 3.2, Magnesium Level 1.8, Total Bilirubin 0.3, Gamma Glutamyl Transpeptidase 84, Aspartate Amino Transf ( AST/SGOT) 22, Alanine Aminotransferase (ALT/SGPT) 7L, Alkaline Phosphatase 143H , Total Creatine Kinase 17L, Total Protein 6.3L, Albumin 1.8L, Globulin 4.5, Albumin/Globulin Ratio 0.4L, Random Gentamicin Level 2.0, Random Vancomycin Level 16.3 09/29/19 08:02: Arterial Blood pH 7.431, Arterial Blood Partial Pressure CO2 40.7, Arterial Blood Partial Pressure O2 72.7L, Arterial Blood HCO3 26.5H, Arterial Blood Oxygen Saturation 94.0L, Arterial Blood Base Excess 2.0, Rojas Test Positive Height (Feet): 5 Height (Inches): 5.00 Weight (Pounds): 132 Objective Debilitated woman in ICU NCAT (+) trach coarse BS RR abd soft , (+) GT no edema Edmund Farris MD Sep 29, 2019 14:22
[2019-09-29] MEDS ORDERED: Vancomycin 500mg/D5W 110ml IVPB ONE ×2 (15:30)
[2019-09-29] MEDS ORDERED: Sorbitol Solution UD 30ml GT PRN (18:00)
[2019-09-29] MEDS: Dyna-Hex 2% Top Sol 2oz TOPIC SCH (20:05)
[2019-09-29] MEDS: Sertraline 100mg tab GT SCH (20:06)
[2019-09-29] MEDS ORDERED: Acetylcysteine 20% Soln 4ml HHN SCH (22:00)
[2019-09-30] VITALS (50 sets, daily range): BP systolic 134–184; BP diastolic 54–81
[2019-09-30] MEDS: HydrALAZINE 50mg tab GT SCH ×4 (01:17→18:19)
[2019-09-30] MEDS: Docusate 100mg/10ml Liq GT SCH ×3 (01:17→16:30)
[2019-09-30] MEDS: traMADol 50mg tab GT SCH ×4 (01:18→18:19)
[2019-09-30] MEDS: Midazolam for drip 50 MG in NS 90 ML IV PRN ×2 (01:39→15:01)
[2019-09-30] MEDS: TAZOBACTAM IV SCH ×3 (05:23→21:30)
[2019-09-30] MEDS: NS IV SCH ×3 (05:23→21:30)
[2019-09-30] MEDS: CEFTOLOZANE IV SCH ×3 (05:23→21:30)
[2019-09-30] MEDS: Metoclopramide 10mg/2ml Inj IVP SCH ×3 (05:23→21:31)
[2019-09-30] MEDS: dilTIAZem HCl 30mg tab GT SCH ×3 (05:24→21:31)
[2019-09-30 06:42] LABS: BASOPHILS % (AUTO) 0.5 % (0.0-2.0); HEMOGLOBIN 8.7 G/DL (12.0-16.0); LYMPHOCYTES % (AUTO) 13.6 % (20.0-45.0); MEAN CORPUSCULAR VOLUME 98 FL (80-99); MONOCYTES % (AUTO) 4.6 % (1.0-10.0); NEUTROPHILS % (AUTO) 79.3 % (45.0-75.0); PLATELET COUNT 258 K/UL (150-450); RED BLOOD COUNT 2.75 M/UL (4.20-5.40); RED CELL DISTRIBUTION WIDTH 15.6 % (11.6-14.8); WHITE BLOOD COUNT 9.6 K/UL (4.8-10.8)
[2019-09-30 07:21] LABS: ALANINE AMINOTRANSFERASE 12 U/L (12-78); ALBUMIN 1.7 G/DL (3.4-5.0); ALBUMIN/GLOBULIN RATIO 0.4 (1.0-2.7); ALKALINE PHOSPHATASE 139 U/L (46-116); ANION GAP 8 mmol/L (5-15); ASPARTATE AMINO TRANSFERASE 21 U/L (15-37); BILIRUBIN,TOTAL 0.3 MG/DL (0.2-1.0); BLOOD UREA NITROGEN 78 mg/dL (7-18); CALCIUM 8.7 MG/DL (8.5-10.1); CARBON DIOXIDE 30 MMOL/L (21-32); CHLORIDE 104 MMOL/L (98-107); CREATININE 2.6 MG/DL (0.55-1.30); PHOSPHORUS 5.2 MG/DL (2.5-4.9); POTASSIUM 3.9 MMOL/L (3.5-5.1); SODIUM 142 MMOL/L (136-145)
--- NOTE | 2019-09-30 07:22 | General Progress Note ---
Assessment/Plan Assessment/Plan: Covering [facility] Assessment and Recs # Leukocytosis, now with gram positive bacteremias well as pna noted --> historically --> PPM site (pocket) infection (redness and pain, bacteremia) and likely pocket abscess - no vegetation seen on ABBIE --> is s'p pm removal and also pocket infection is better --> per cards recs in re to tach/davis --> wbc 15-->19-->17-->15-->13->12-->13-->12>13-->18-->9 --> ABX cefepime/levaquin--> vanc/angelo --> ID recs are noted # Anemia of chronic disease due to underlying chronic medical issues, multifactorial --> Anemia workup has been reviewed, cw acd --> No evidence of hemolysis is noted, peripheral smear has been reviewed. --> Hgb goal >7. Transfuse prn. --> Epogen started --> Medications have been reviewed --> low threshold for gi evaluation in case has occult + --> hgb 7.1-->7.8-->8.9->9.2-->8.5-->9.7-->10-->8.8-->9.6-->8.7->8.6-->7.2->8.7 --> 1 unit prbc 09/27 # Thrombocytois is likely reactive process, is s/p infection --> plt trend 610k-->706k --> p smear reviewed # Acute hypoxic respiratory failure s/p intubation 11/23- ?ARDS --> on vent/trach # Gram positive bacteremia- real bacteremia- 2ry to above and probable PNA --> per id care # JAVIER initially >2 --> now improved with D5w # Dysphagia s/p peg # Thoracic aortic dissection s/p repair early 2017 # Psychiatric history on ativan/haldol # [facility] # Dvt ppx heparin sq The timing of this note does not necessarily reflect the time of the patient was seen. Greatly appreciate consultation. Subjective Allergies: Coded Allergies: No Known Allergies (Unverified , 10/10/17) All Systems: reviewed and negative except above Subjective 09/16 on vent now, consulted in am pulm, on vent setting, labs noted, hep sq 09/17 meds noted, cbc noted, labs noted, no bleeding 09/18 is to undergo potential v/q scan given abg, labs noted, resless, on ativan, to get haldol today, roman rn 09/19 remains agitated, covering, with sacral wound seeping, likely cause of anemia, roman rn 09/26 restless, remains agitated, gtube ripped, eval with rn, and almai consulted 09/27 remains on vent, agitated, seen by gi, hgb low, roman George to transfuse 1 unit prbc 09/28 meds noted, no bleeding, on vent, s/p blood tranfusion, cbc pending, roman rn 09/29 remains in the icu, roman rn in the am, agitated, on versed, fentanyl, restraints Objective Last 24 Hour Vital Signs Date Time Temp Pulse Resp B/P (MAP) Pulse Ox O2 Delivery O2 Flow Rate FiO2 09/30/19 07:17 89 26 70 09/30/19 06:30 70 09/30/19 06:30 79 23 148/57 (87) 92 09/30/19 06:00 84 27 153/62 (92) 90 09/30/19 05:54 98.4 09/30/19 05:30 86 21 178/81 (113) 97 09/30/19 05:24 154/61 09/30/19 05:24 68 154/61 09/30/19 05:00 64 20 148/60 (89) 98 09/30/19 04:55 87 25 80 09/30/19 04:30 64 20 139/55 (83) 97 09/30/19 04:00 80 09/30/19 04:00 Mechanical Ventilator Mechanical Ventilator 09/30/19 04:00 98.5 63 20 143/56 (85) 92 09/30/19 03:11 68 22 80 09/30/19 03:00 71 20 155/69 (97) 89 09/30/19 03:00 20 Mechanical Ventilator 80 09/30/19 03:00 20 154/61 Mechanical Ventilator 80 09/30/19 02:30 70 20 151/62 (91) 97 09/30/19 02:00 71 21 150/57 (88) 98 09/30/19 02:00 20 Mechanical Ventilator 80 09/30/19 02:00 20 150/57 Mechanical Ventilator 80 09/30/19 01:39 20 Mechanical Ventilator 10.0 80 09/30/19 01:38 20 Mechanical Ventilator 80 09/30/19 01:30 60 21 166/75 (105) 95 09/30/19 01:17 114/54 09/30/19 01:00 20 Mechanical Ventilator 80 09/30/19 01:00 22 114/54 Mechanical Ventilator 80 09/30/19 01:00 60 20 156/66 (96) 95 09/30/19 00:55 76 20 80 09/30/19 00:30 61 20 140/54 (82) 95 09/30/19 00:00 80 09/30/19 00:00 Mechanical Ventilator Mechanical Ventilator 09/30/19 00:00 20 Mechanical Ventilator 80 09/30/19 00:00 20 140/54 Mechanical Ventilator 80 09/30/19 00:00 98.4 60 20 148/57 (87) 96 09/29/19 23:30 62 20 132/53 (79) 96 09/29/19 23:18 63 20 80 09/29/19 23:00 20 Mechanical Ventilator 80 09/29/19 23:00 64 19 150/57 (88) 98 09/29/19 22:57 20 143/55 Mechanical Ventilator 10.0 80 09/29/19 22:30 65 20 143/55 (84) 97 09/29/19 22:00 69 18 158/66 (96) 99 09/29/19 22:00 20 Mechanical Ventilator 80 09/29/19 21:48 63 130/51 09/29/19 21:32 63 20 100 Mechanical Ventilator 80 62 20 80 09/29/19 21:30 60 20 156/61 (92) 99 09/29/19 21:00 62 20 130/51 (77) 98 09/29/19 21:00 20 Mechanical Ventilator 80 09/29/19 21:00 20 156/61 Mechanical Ventilator 80 09/29/19 20:07 62 154/59 09/29/19 20:04 20 Mechanical Ventilator 10.0 80 09/29/19 20:00 68 09/29/19 20:00 98.6 63 20 154/59 (90) 98 09/29/19 20:00 20 130/51 Mechanical Ventilator 80 09/29/19 20:00 Mechanical Ventilator Mechanical Ventilator 09/29/19 20:00 80 09/29/19 19:40 64 20 80 09/29/19 19:00 17 137/55 Mechanical Ventilator 80 09/29/19 19:00 17 Mechanical Ventilator 80 09/29/19 19:00 66 17 137/55 (82) 98 09/29/19 18:30 69 147/58 (87) 09/29/19 18:00 67 26 141/65 (90) 97 09/29/19 18:00 26 141/65 Mechanical Ventilator 80 09/29/19 18:00 26 Mechanical Ventilator 80 09/29/19 17:30 63 20 139/64 (89) 94 09/29/19 17:27 147/61 09/29/19 17:00 64 24 147/61 (89) 95 09/29/19 17:00 24 147/61 Mechanical Ventilator 80 09/29/19 17:00 24 Mechanical Ventilator 80 09/29/19 17:00 64 20 80 09/29/19 16:30 65 20 130/54 (79) 94 09/29/19 16:00 23 138/59 Mechanical Ventilator 80 09/29/19 16:00 23 Mechanical Ventilator 80 09/29/19 16:00 80 09/29/19 16:00 Mechanical Ventilator Mechanical Ventilator 09/29/19 16:00 98.8 68 23 138/59 (85) 94 09/29/19 15:38 69 23 154/57 (89) 93 09/29/19 15:30 70 09/29/19 15:30 70 26 139/58 (85) 99 09/29/19 15:05 68 20 80 09/29/19 15:00 21 141/69 Mechanical Ventilator 80 09/29/19 15:00 21 Mechanical Ventilator 80 09/29/19 15:00 67 21 141/69 (93) 97 09/29/19 14:30 67 20 144/61 (88) 93 09/29/19 14:00 21 136/57 Mechanical Ventilator 80 09/29/19 14:00 21 Mechanical Ventilator 80 09/29/19 14:00 71 21 136/57 (83) 94 09/29/19 13:33 28 Mechanical Ventilator 80 09/29/19 13:32 75 133/58 09/29/19 13:30 74 21 140/61 (87) 96 09/29/19 13:00 78 23 80 09/29/19 13:00 28 133/58 Mechanical Ventilator 80 09/29/19 13:00 28 Mechanical Ventilator 80 09/29/19 13:00 75 28 133/58 (83) 95 09/29/19 12:31 130/57 09/29/19 12:30 75 27 128/55 (79) 95 09/29/19 12:12 90 09/29/19 12:00 20 130/57 Mechanical Ventilator 80 09/29/19 12:00 20 Mechanical Ventilator 80 09/29/19 12:00 Mechanical Ventilator Mechanical Ventilator 09/29/19 12:00 80 09/29/19 12:00 98.7 68 20 130/57 (81) 94 09/29/19 11:45 72 20 126/54 (78) 95 09/29/19 11:30 75 21 137/56 (83) 95 09/29/19 11:15 73 20 129/57 (81) 94 09/29/19 11:00 82 24 140/61 (87) 95 09/29/19 11:00 24 140/61 Mechanical Ventilator 80 09/29/19 11:00 24 Mechanical Ventilator 80 09/29/19 10:57 19 154/68 Mechanical Ventilator 80 09/29/19 10:45 81 19 154/68 (96) 95 09/29/19 10:35 66 20 80 09/29/19 10:30 67 20 132/57 (82) 93 09/29/19 10:00 69 23 145/61 (89) 94 09/29/19 10:00 23 Mechanical Ventilator 80 09/29/19 09:37 20 138/51 Mechanical Ventilator 80 09/29/19 09:30 66 20 138/51 (80) 89 09/29/19 09:00 20 Mechanical Ventilator 80 09/29/19 09:00 20 134/48 Mechanical Ventilator 80 09/29/19 09:00 66 20 80 09/29/19 09:00 66 20 134/48 (76) 95 09/29/19 08:46 63 157/63 09/29/19 08:30 63 20 131/50 (77) 94 09/29/19 08:11 59 20 95 Mechanical Ventilator 80 62 20 80 09/29/19 08:04 63 09/29/19 08:00 80 09/29/19 08:00 20 Mechanical Ventilator 80 09/29/19 08:00 20 157/63 Mechanical Ventilator 80 09/29/19 08:00 Mechanical Ventilator Mechanical Ventilator 09/29/19 08:00 99.0 66 20 157/63 (94) 96 09/29/19 07:30 59 20 136/56 (82) 92 Intake and Output 09/29/19 09/30/19 19:00 07:00 Intake Total 1186.7 ml 850.5 ml Output Total 100 ml 280 ml Balance 1086.7 ml 570.5 ml IV Total 646.7 ml 230.5 ml Tube Feeding 480 ml 440 ml Other 60 ml 180 ml Output Urine Total 100 ml 280 ml Laboratory Tests 09/29/19 08:02: Arterial Blood pH 7.431, Arterial Blood Partial Pressure CO2 40.7, Arterial Blood Partial Pressure O2 72.7L, Arterial Blood HCO3 26.5H, Arterial Blood Oxygen Saturation 94.0L, Arterial Blood Base Excess 2.0, Rojas Test Positive 09/30/19 05:11: White Blood Count 9.6, Red Blood Count 2.75L, Hemoglobin 8.7L, Hematocrit 27.0L , Mean Corpuscular Volume 98, Mean Corpuscular Hemoglobin 31.8H, Mean Corpuscular Hemoglobin Concent 32.4, Red Cell Distribution Width 15.6H, Platelet Count 258, Mean Platelet Volume 6.1L, Neutrophils (%) (Auto) 79.3H, Lymphocytes (%) (Auto) 13.6L, Monocytes (%) (Auto) 4.6, Eosinophils (%) (Auto) 2.0, Basophils (%) (Auto) 0.5, Sodium Level [Pending], Potassium Level [Pending] , Chloride Level [Pending], Carbon Dioxide Level [Pending], Blood Urea Nitrogen [Pending], Creatinine [Pending], Estimat Glomerular Filtration Rate [Pending], Glucose Level [Pending], Calcium Level [Pending], Phosphorus Level [Pending], Magnesium Level [Pending], Total Bilirubin [Pending], Aspartate Amino Transf ( AST/SGOT) [Pending], Alanine Aminotransferase (ALT/SGPT) [Pending], Alkaline Phosphatase [Pending], C-Reactive Protein, Quantitative [Pending], Pro-B-Type Natriuretic Peptide [Pending], Total Protein [Pending], Albumin [Pending], Globulin [Pending], Random Vancomycin Level 21.7 Height (Feet): 5 Height (Inches): 5.00 Weight (Pounds): 132 Objective Physical Exam: Vitals: reviewed General: NAD HEENT: nc, at Neck: supple ++tracn/vent Chest: clear breath sounds bilaterally Cardiovascular: RRR, no s3, s4 Abdomen: soft, nontender, nd +gtube Extremities: no cce, normal range of motion Neuro: alert Evan Muhammad MD Sep 30, 2019 07:22
--- NOTE | 2019-09-30 08:49 | Infectious Diseases Prog Note ---
Assessment/Plan 49yo F with: Acute hypoxic resp failure: Now on vent, worsening, FiO2 100%> 80% 09/27 Pneumonia, COVID19 neg x3 - worsening MDR PsA pneumonia 09/26 S/P thoracentesis, 900cc removed, only 67 WBC in fluid analysis, unlikely empyema 09/26 CXR: Worsening R perihilar opacity 09/26 BCx NTD 09/24 CXR: Previously demonstrated right lateral basilar lucency is no longer evident, was presumably a skin fold artifact. Bilateral infiltrates and left pleural effusion are probably unchanged allowing for slight differences in technique. 09/22 Resp cx + MDR PsA (S-gent; I-colistin; R-levofloxacin, Zosyn, angelo) 09/22 BCx NTD 09/22 CXR: worsening BL pna 09/22 UA w/ persistent pyuria, now on HD, UCx +VRE, most likely colonizer as improving wo tx for this 09/19 V/Q scan, low probability of PE 09/18 Rapid COVID PCR neg 09/18 CT chest: Markedly suboptimal examination due to lack of IV contrast material. Bilateral pleural effusions, right greater than left, with bilateral lower lobe consolidation or volume loss. Ground glass densities in the upper lobes bilaterally. This is not specific. Tracheostomy. Increased superior mediastinal density. Stability of adenopathy cannot be excluded. Atherosclerotic change. Gastrostomy. Ascites. Left renal stent with left hydronephrosis and renal atrophy. 09/17 Chest US: Trace right and small left pleural effusions. No safe window identified for bedside thoracentesis. Note that the majority of the left pleural effusion is subpulmonic. 09/16 CXR: Worsening of right lung infiltrates and right effusion. V. duplex: NO DVT D-dimer elevated 09/15 Rapid COVID PCR neg 09/15 Sp cx ESBL P. mirablis 09/14 CXR: Bilateral airspace opacities, preferentially involving the right lung, consistent with multifocal infiltrate. Trace bilateral pleural effusions. No pneumothorax. Rapid COVID PCR neg GPC bacteremia, real vs contaminant; does have hx of infected PPM- could be a possibility- ro endocarditis 09/14 Bcx / S. epidermis; 09/15 Bcx NTD 2d echo: no vegetations seen UTI 09/14 u/a wbc tnct, nit neg, leuk +3; ucx >100k MDR P. stuarti (S Ceftriaxone, Meropenem) 09/22 UA w/ ongoing pyuria, unchanged Unstageable sacral ulceration Afebrile Leukocytosis, mild; fluctuates bt 12-13 JAVIER on CKD --> now on HD Renal US: Limited exam due to abdominal ascites and shadowing from bowel gas. CT recommended for more sensitive evaluation. Moderate right hydronephrosis. Increased renal parenchymal echogenicity suggesting intrinsic/ medical renal disease. Question indwelling left ureteral stent versus artifact. Bladder not visualized. 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 epi-11/2018, sp > 6weeks IV vancomycin 11/27 SP ABBIE: no evidence for vegetation on any of the valves 11/26/18 SP PPM removal: OR findings:The fibrous capsule enclosing the generator was then opened and there was a [id number] amount of yellowish fluid drainage. The generator was then removed.Atrial and ventricular leads were detached. The necrotic tissue of the pocket was then removed and the pocket was flushed with an antibiotic solution. Capsule, wound tissue and lead tip cx: Neg 2d echo: no vegetation seen US chest: 4.6 x 3.4 x 0.9 cm hypoechoic/anechoic area overlying left chest pacemaker power pack. This could represent either a discrete fluid collection or a focal area of very edematous tissue. Infected fluid pocket also possible. 11/18 Bcx 3/4 S. epi; 11/20 Bcx neg; 11/24 Bcx Neg; 11/27 Bcx Neg Hx of PNA 11/2019? sp cx PsA (arnett S), ABC (I Ceftriaxone; otherwise negative) Sp cx MRSA, ABC (I Ceftriaxone; otherwise S) PMH: Afib HTN Dysphagia sp GT Aortic dissection s/p repair 2017, S/p PPM Parkinson's Disease Schizophrenia Anxiety COPD Chronic resp failure s/p trach Hx of tracheal bleeding [place] resident ([facility]) Plan: Stop vancomycin #/ for prior Staph epi in BCx, though possible contaminant also Cont Zerbaxa #3 for MDR PsA pneumonia Cont gentamicin per pharmacy #4 for now as improved and awaiting sensitivities for Zerbaxa Trend resp status, leukocytosis D/w micro about sending MDR PsA out for further sensi to Zerbaxa and Avycaz, [facility] [place], sent out of Tuesday 09/26 Called micro lab today, was told to call back tomorrow for updates ([phone]) Aggressive volume removal as tolerated by HD, BNP >35,000 09/29 SP vanco #15 for S.epi in BCx 09/27 SP angelo #13 09/16 SP Cefepime #3, Levaquin #3 Monitor CBC/CMP, temperatures ICU/ trach/ peg care Aspiration precautions D/w RN Thank you for this consultation. Will continue to follow along with you. Subjective Allergies: Coded Allergies: No Known Allergies (Unverified , 10/10/17) AF Remains on vent, FiO2 back up to 90% satting 99% WBC improved to 11 Objective Last 24 Hour Vital Signs Date Time Temp Pulse Resp B/P (MAP) Pulse Ox O2 Delivery O2 Flow Rate FiO2 09/30/19 08:00 99.1 74 22 150/74 (99) 92 09/30/19 07:30 73 28 154/62 (92) 92 09/30/19 07:17 89 26 70 09/30/19 07:00 77 21 150/60 (90) 93 09/30/19 07:00 20 Mechanical Ventilator 70 09/30/19 07:00 20 150/60 Mechanical Ventilator 70 09/30/19 06:30 70 09/30/19 06:30 79 23 148/57 (87) 92 09/30/19 06:00 84 27 153/62 (92) 90 09/30/19 06:00 20 Mechanical Ventilator 80 09/30/19 06:00 20 153/62 Mechanical Ventilator 80 09/30/19 05:54 98.4 09/30/19 05:30 86 21 178/81 (113) 97 09/30/19 05:24 154/61 09/30/19 05:24 68 154/61 09/30/19 05:00 64 20 148/60 (89) 98 09/30/19 05:00 20 Mechanical Ventilator 80 09/30/19 05:00 21 148/60 Mechanical Ventilator 80 09/30/19 04:55 87 25 80 09/30/19 04:30 64 20 139/55 (83) 97 09/30/19 04:00 68 09/30/19 04:00 80 09/30/19 04:00 20 Mechanical Ventilator 80 09/30/19 04:00 20 143/56 Mechanical Ventilator 80 09/30/19 04:00 Mechanical Ventilator Mechanical Ventilator 09/30/19 04:00 98.5 63 20 143/56 (85) 92 09/30/19 03:11 68 22 80 09/30/19 03:00 71 20 155/69 (97) 89 09/30/19 03:00 20 Mechanical Ventilator 80 09/30/19 03:00 20 154/61 Mechanical Ventilator 80 09/30/19 02:30 70 20 151/62 (91) 97 09/30/19 02:00 71 21 150/57 (88) 98 09/30/19 02:00 20 Mechanical Ventilator 80 09/30/19 02:00 20 150/57 Mechanical Ventilator 80 09/30/19 01:39 20 Mechanical Ventilator 10.0 80 09/30/19 01:38 20 Mechanical Ventilator 80 09/30/19 01:30 60 21 166/75 (105) 95 09/30/19 01:17 114/54 09/30/19 01:00 20 Mechanical Ventilator 80 09/30/19 01:00 22 114/54 Mechanical Ventilator 80 09/30/19 01:00 60 20 156/66 (96) 95 09/30/19 00:55 76 20 80 09/30/19 00:30 61 20 140/54 (82) 95 09/30/19 00:00 80 09/30/19 00:00 Mechanical Ventilator Mechanical Ventilator 09/30/19 00:00 20 Mechanical Ventilator 80 09/30/19 00:00 20 140/54 Mechanical Ventilator 80 09/30/19 00:00 71 09/30/19 00:00 98.4 60 20 148/57 (87) 96 09/29/19 23:30 62 20 132/53 (79) 96 09/29/19 23:18 63 20 80 09/29/19 23:00 20 Mechanical Ventilator 80 09/29/19 23:00 64 19 150/57 (88) 98 09/29/19 22:57 20 143/55 Mechanical Ventilator 10.0 80 09/29/19 22:30 65 20 143/55 (84) 97 09/29/19 22:00 69 18 158/66 (96) 99 09/29/19 22:00 20 Mechanical Ventilator 80 09/29/19 21:48 63 130/51 09/29/19 21:32 63 20 100 Mechanical Ventilator 80 62 20 80 09/29/19 21:30 60 20 156/61 (92) 99 09/29/19 21:00 62 20 130/51 (77) 98 09/29/19 21:00 20 Mechanical Ventilator 80 09/29/19 21:00 20 156/61 Mechanical Ventilator 80 09/29/19 20:07 62 154/59 09/29/19 20:04 20 Mechanical Ventilator 10.0 80 09/29/19 20:00 68 09/29/19 20:00 98.6 63 20 154/59 (90) 98 09/29/19 20:00 20 130/51 Mechanical Ventilator 80 09/29/19 20:00 Mechanical Ventilator Mechanical Ventilator 09/29/19 20:00 80 09/29/19 19:40 64 20 80 09/29/19 19:00 17 137/55 Mechanical Ventilator 80 09/29/19 19:00 17 Mechanical Ventilator 80 09/29/19 19:00 66 17 137/55 (82) 98 09/29/19 18:30 69 147/58 (87) 09/29/19 18:00 67 26 141/65 (90) 97 09/29/19 18:00 26 141/65 Mechanical Ventilator 80 09/29/19 18:00 26 Mechanical Ventilator 80 09/29/19 17:30 63 20 139/64 (89) 94 09/29/19 17:27 147/61 09/29/19 17:00 64 24 147/61 (89) 95 09/29/19 17:00 24 147/61 Mechanical Ventilator 80 09/29/19 17:00 24 Mechanical Ventilator 80 09/29/19 17:00 64 20 80 09/29/19 16:30 65 20 130/54 (79) 94 09/29/19 16:00 23 138/59 Mechanical Ventilator 80 09/29/19 16:00 23 Mechanical Ventilator 80 09/29/19 16:00 80 09/29/19 16:00 Mechanical Ventilator Mechanical Ventilator 09/29/19 16:00 98.8 68 23 138/59 (85) 94 09/29/19 15:38 69 23 154/57 (89) 93 09/29/19 15:30 70 09/29/19 15:30 70 26 139/58 (85) 99 09/29/19 15:05 68 20 80 8/16/20 15:00 21 141/69 Mechanical Ventilator 80 09/29/19 15:00 21 Mechanical Ventilator 80 09/29/19 15:00 67 21 141/69 (93) 97 09/29/19 14:30 67 20 144/61 (88) 93 09/29/19 14:00 21 136/57 Mechanical Ventilator 80 09/29/19 14:00 21 Mechanical Ventilator 80 09/29/19 14:00 71 21 136/57 (83) 94 09/29/19 13:33 28 Mechanical Ventilator 80 09/29/19 13:32 75 133/58 09/29/19 13:30 74 21 140/61 (87) 96 09/29/19 13:00 78 23 80 09/29/19 13:00 28 133/58 Mechanical Ventilator 80 09/29/19 13:00 28 Mechanical Ventilator 80 09/29/19 13:00 75 28 133/58 (83) 95 09/29/19 12:31 130/57 09/29/19 12:30 75 27 128/55 (79) 95 09/29/19 12:12 90 09/29/19 12:00 20 130/57 Mechanical Ventilator 80 09/29/19 12:00 20 Mechanical Ventilator 80 09/29/19 12:00 Mechanical Ventilator Mechanical Ventilator 09/29/19 12:00 80 09/29/19 12:00 98.7 68 20 130/57 (81) 94 09/29/19 11:45 72 20 126/54 (78) 95 09/29/19 11:30 75 21 137/56 (83) 95 09/29/19 11:15 73 20 129/57 (81) 94 09/29/19 11:00 82 24 140/61 (87) 95 09/29/19 11:00 24 140/61 Mechanical Ventilator 80 09/29/19 11:00 24 Mechanical Ventilator 80 09/29/19 10:57 19 154/68 Mechanical Ventilator 80 09/29/19 10:45 81 19 154/68 (96) 95 09/29/19 10:35 66 20 80 09/29/19 10:30 67 20 132/57 (82) 93 09/29/19 10:00 69 23 145/61 (89) 94 09/29/19 10:00 23 Mechanical Ventilator 80 09/29/19 09:37 20 138/51 Mechanical Ventilator 80 09/29/19 09:30 66 20 138/51 (80) 89 09/29/19 09:00 20 Mechanical Ventilator 80 09/29/19 09:00 20 134/48 Mechanical Ventilator 80 09/29/19 09:00 66 20 80 09/29/19 09:00 66 20 134/48 (76) 95 09/29/19 08:46 63 157/63 Height (Feet): 5 Height (Inches): 5.00 Weight (Pounds): 132 Gen: Older woman, sedated on vent CV: RRR Pulm: Rhonchi BL anteriorly Abd: Soft, non-distended Ext: No c/c Neuro: Sedated Microbiology Date/Time Source Procedure Growth Status 09/27/19 10:00 Blood Blood Culture - Preliminary NO GROWTH AFTER 24 HOURS Resulted 09/27/19 09:45 Blood Blood Culture - Preliminary NO GROWTH AFTER 24 HOURS Resulted Laboratory Tests Test 09/30/19 05:11 09/30/19 08:24 White Blood Count 9.6 K/UL (4.8-10.8) Red Blood Count 2.75 M/UL (4.20-5.40) L Hemoglobin 8.7 G/DL (12.0-16.0) L Hematocrit 27.0 % (37.0-47.0) L Mean Corpuscular Volume 98 FL (80-99) Mean Corpuscular Hemoglobin 31.8 PG (27.0-31.0) H Mean Corpuscular Hemoglobin Concent 32.4 G/DL (32.0-36.0) Red Cell Distribution Width 15.6 % (11.6-14.8) H Platelet Count 258 K/UL (150-450) Mean Platelet Volume 6.1 FL (6.5-10.1) L Neutrophils (%) (Auto) 79.3 % (45.0-75.0) H Lymphocytes (%) (Auto) 13.6 % (20.0-45.0) L Monocytes (%) (Auto) 4.6 % (1.0-10.0) Eosinophils (%) (Auto) 2.0 % (0.0-3.0) Basophils (%) (Auto) 0.5 % (0.0-2.0) Sodium Level 142 MMOL/L (136-145) Potassium Level 3.9 MMOL/L (3.5-5.1) Chloride Level 104 MMOL/L (98-107) Carbon Dioxide Level 30 MMOL/L (21-32) Anion Gap 8 mmol/L (5-15) Blood Urea Nitrogen 78 mg/dL (7-18) H Creatinine 2.6 MG/DL (0.55-1.30) H Estimat Glomerular Filtration Rate 19.7 mL/min (>60) Glucose Level 74 MG/DL (74-106) Calcium Level 8.7 MG/DL (8.5-10.1) Phosphorus Level 5.2 MG/DL (2.5-4.9) H Magnesium Level 2.5 MG/DL (1.8-2.4) H Total Bilirubin 0.3 MG/DL (0.2-1.0) Aspartate Amino Transf (AST/SGOT) 21 U/L (15-37) Alanine Aminotransferase (ALT/SGPT) 12 U/L (12-78) Alkaline Phosphatase 139 U/L (46-116) H C-Reactive Protein, Quantitative 16.7 mg/dL (0.00-0.90) H Pro-B-Type Natriuretic Peptide > 14470 pg/mL (0-125) H Total Protein 6.4 G/DL (6.4-8.2) Albumin 1.7 G/DL (3.4-5.0) L Globulin 4.7 g/dL Albumin/Globulin Ratio 0.4 (1.0-2.7) L Random Vancomycin Level 21.7 ug/mL Arterial Blood pH 7.383 (7.350-7.450) Arterial Blood Partial Pressure CO2 44.8 mmHg (35.0-45.0) Arterial Blood Partial Pressure O2 54.0 mmHg (75.0-100.0) L Arterial Blood HCO3 26.1 mmol/L (22.0-26.0) H Arterial Blood Oxygen Saturation 86.8 % (95-100) *L Arterial Blood Base Excess 0.8 (-2-2) Rojas Test Positive Current Medications Medications (Trade) Dose Ordered Sig/Penny Route PRN Reason Start Time Stop Time Status Last Admin Dose Admin Acetaminophen (Tylenol) 325 mg Q6H PRN GT Temp >100.5 09/23/19 10:45 10/23/19 10:44 09/23/19 18:55 Acetylcysteine (Mucomyst) 200 mg Q12HRT N 09/29/19 22:00 12/17/19 18:59 09/29/19 21:44 Albuterol/ Ipratropium (Albuterol/ Ipratropium) 3 ml Q12HRT N 09/29/19 22:00 10/04/19 12:59 09/29/19 21:43 Ceftolozane/ Tazobactam 0.45 gm/Sodium Chloride 110 ml @ 110 mls/hr Q8H IV 09/28/19 20:00 10/05/19 19:59 09/30/19 05:23 Chlorhexidine Gluconate (Ling-Hex 2%) 1 applic DAILY@2000 TOPIC 09/23/19 20:00 12/22/19 19:59 09/29/19 20:05 Diltiazem HCl (Cardizem Tab) 30 mg EVERY 8 HOURS GT 09/25/19 14:00 10/15/19 11:59 09/30/19 05:24 Docusate Sodium (Colace) 100 mg Q8H GT 09/29/19 08:30 10/29/19 08:29 09/30/19 01:17 Epoetin Gelacio (Epoetin Gelacio(ESRD on dialysis)) 10,000 unit MON-MON-MON SUBQ 09/25/19 21:00 12/24/19 20:59 09/27/19 20:31 Fentanyl Citrate 250 ml @ 0 mls/hr Q24H IV 09/29/19 10:00 10/01/19 09:59 09/29/19 22:57 Gentamicin Protocol (Gentamicin pharmacy to dose) 1 ea DAILY PRN MISC Per rx protocol 09/28/19 13:15 10/28/19 13:14 Heparin Sodium (Porcine) (Heparin 5000 units/ml) 5,000 units EVERY 12 HOURS SUBQ 09/17/19 21:00 10/30/19 08:59 09/29/19 20:07 Hydralazine HCl (Apresoline) 10 mg Q4H PRN IV BP over 160 systolic 09/17/19 11:15 12/14/19 11:14 09/24/19 15:55 Hydralazine HCl (Apresoline) 50 mg Q6HR GT 09/26/19 18:00 12/15/19 17:59 09/30/19 05:24 Lansoprazole (Prevacid) 30 mg Q12HR GT 09/27/19 21:00 10/27/19 20:59 09/29/19 20:06 Metoclopramide HCl (Reglan) 10 mg Q8H IVP 09/29/19 14:00 10/29/19 13:59 09/30/19 05:23 Metoprolol Tartrate (Lopressor) 25 mg EVERY 12 HOURS GT 09/25/19 21:00 12/14/19 20:59 09/29/19 20:07 Midazolam HCl (Versed 2mg/2ml vial) 1 mg Q4H PRN IVP For Anxiety 09/21/19 09:30 12/20/19 09:29 09/27/19 08:57 Midazolam HCl 50 mg/Sodium Chloride 100 ml @ 0 mls/hr Q24H PRN IV Agitation 09/29/19 20:00 10/01/19 18:49 09/30/19 01:39 Olanzapine (ZyPREXA) 2.5 mg DAILY GT 09/18/19 09:00 10/30/19 08:59 09/29/19 08:46 Sertraline HCl (Zoloft) 100 mg BEDTIME GT 09/17/19 21:00 10/15/19 20:59 09/29/19 20:06 Sorbitol (sorbitoL) 30 ml EVERY 6 HOURS PRN GT Constipation 09/29/19 18:00 10/29/19 17:59 Tramadol HCl (Ultram) 25 mg Q6HR GT 09/27/19 09:45 10/04/19 09:44 09/30/19 05:24 Vancomycin HCl (Vanco pharmacy to dose) 1 ea DAILY PRN MISC Per rx protocol 09/18/19 09:00 10/16/19 13:44 Ro Pack M.D. Sep 30, 2019 08:49
--- NOTE | 2019-09-30 09:02 | Pulmonolgy Critical Care Note ---
Yara Castro [employer]IE[employer] 09/30/19 0902: Critical Care - Asmt/Plan Assessment/Plan: ASSESSMENT Acute on chronic hypoxemic respiratory failure ( trach dependent), now on vent Tracheostomy status, s/p change to cuffed trach Sepsis Pulmonary edema Pleural effusion -worsening left pl effusion s/p thoracentesis L pleural effusion 09/26 -900 ml Pneumonia with MDR Pseudomonas UTI CHF ? cardiorenal COPD Acute kidney injury and chronic kidney disease-requiring start of HD Hypertension Atrial fibrillation Moderate pulm HTN Moderate AR Dysphagia , feeding by G-tube Electrolyte abnormalities Anemia Toxic metabolic encephalopathy likely due to sepsis and ARF HTN PAF PLAN OF CARE ICU on vent AC trach changed 8/4 pm from uncuffed to cuffed Shiley#[address] chest w/out contrast: - Bilateral pleural effusions, right greater than left, with bilateral lower lobe consolidation or volume loss. -Ground-glass densities in the upper lobes bilaterally. This is not specific. -Tracheostomy. -Increased superior mediastinal density. Stability of adenopathy cannot be excluded. -Atherosclerotic change. -Gastrostomy. -Ascites. -Left renal stent with left hydronephrosis and renal atrophy. VQ scan -> low probability for PE worsening resp status was due to need for HD, now after HD started, resp status improving, down to PEEP 5 and AC 20 trach care , pulmonary toilet ABG this am with mild hypoxemia, however sat > 90% on monitor , keep as is and titrate as needed fup with ABG and CXR in am dc Mucomyst given lots of thin secretions, continue Duoneb prn rapid COVID 19 NGT x3 sedation with fentanyl gtt and Versed prn-> on weaning from Fentanyl as tolerated s/p thoracentesis L pleural effusion 09/26 am -> 900 ml fluid analysis noted, fup with fluid cx ( apparently was never sent) and cytology aspiration precautions venous Duplex BLE -> NGT DVT prophylaxis pulm toilet, continue Mucomyst to help in loosening secretions abx as per ID- s/p gent x 1, now on Vanco and Zerbaxa SCX 8/3 + Proteus, SCX 09/22 Pseudomonas MDR UCX 8/2 + Providencia , UCX 09/22 VRE 10-20 K only BCX 8/2 Staph epidermidis, BCX 8/3 NGT , BCX 09/22 and 09/26 - NGTD monitor volumes was on gentle IVF-> dc s/p prior diuretic-Lasix require initiation of HD close monitoring of volumes, renal parameters and lytes -per nephro recs ECHO with pEF , moderate pulm HTN and moderate AR BP management with current regimen of BB, Cardizem and Hydralazine, remains in SR monitor HH with goal to keep Hgb >7, heme on board on EPO supportive care pain management wound care bowel regimen thank you for a consult Critical Care - Objective Last 24 Hour Vital Signs Date Time Temp Pulse Resp B/P (MAP) Pulse Ox O2 Delivery O2 Flow Rate FiO2 09/30/19 08:00 Mechanical Ventilator Mechanical Ventilator 09/30/19 08:00 99.1 74 22 150/74 (99) 92 09/30/19 08:00 70 09/30/19 07:30 73 28 154/62 (92) 92 09/30/19 07:17 89 26 70 09/30/19 07:00 77 21 150/60 (90) 93 09/30/19 07:00 20 Mechanical Ventilator 70 09/30/19 07:00 20 150/60 Mechanical Ventilator 70 09/30/19 06:30 70 09/30/19 06:30 79 23 148/57 (87) 92 09/30/19 06:00 84 27 153/62 (92) 90 09/30/19 06:00 20 Mechanical Ventilator 80 09/30/19 06:00 20 153/62 Mechanical Ventilator 80 09/30/19 05:54 98.4 09/30/19 05:30 86 21 178/81 (113) 97 09/30/19 05:24 154/61 09/30/19 05:24 68 154/61 09/30/19 05:00 64 20 148/60 (89) 98 09/30/19 05:00 20 Mechanical Ventilator 80 09/30/19 05:00 21 148/60 Mechanical Ventilator 80 09/30/19 04:55 87 25 80 09/30/19 04:30 64 20 139/55 (83) 97 09/30/19 04:00 68 09/30/19 04:00 80 09/30/19 04:00 20 Mechanical Ventilator 80 09/30/19 04:00 20 143/56 Mechanical Ventilator 80 09/30/19 04:00 Mechanical Ventilator Mechanical Ventilator 09/30/19 04:00 98.5 63 20 143/56 (85) 92 09/30/19 03:11 68 22 80 09/30/19 03:00 71 20 155/69 (97) 89 09/30/19 03:00 20 Mechanical Ventilator 80 09/30/19 03:00 20 154/61 Mechanical Ventilator 80 09/30/19 02:30 70 20 151/62 (91) 97 09/30/19 02:00 71 21 150/57 (88) 98 09/30/19 02:00 20 Mechanical Ventilator 80 09/30/19 02:00 20 150/57 Mechanical Ventilator 80 09/30/19 01:39 20 Mechanical Ventilator 10.0 80 09/30/19 01:38 20 Mechanical Ventilator 80 09/30/19 01:30 60 21 166/75 (105) 95 09/30/19 01:17 114/54 09/30/19 01:00 20 Mechanical Ventilator 80 09/30/19 01:00 22 114/54 Mechanical Ventilator 80 09/30/19 01:00 60 20 156/66 (96) 95 09/30/19 00:55 76 20 80 09/30/19 00:30 61 20 140/54 (82) 95 09/30/19 00:00 80 09/30/19 00:00 Mechanical Ventilator Mechanical Ventilator 09/30/19 00:00 20 Mechanical Ventilator 80 09/30/19 00:00 20 140/54 Mechanical Ventilator 80 09/30/19 00:00 71 09/30/19 00:00 98.4 60 20 148/57 (87) 96 09/29/19 23:30 62 20 132/53 (79) 96 09/29/19 23:18 63 20 80 09/29/19 23:00 20 Mechanical Ventilator 80 09/29/19 23:00 64 19 150/57 (88) 98 09/29/19 22:57 20 143/55 Mechanical Ventilator 10.0 80 09/29/19 22:30 65 20 143/55 (84) 97 09/29/19 22:00 69 18 158/66 (96) 99 09/29/19 22:00 20 Mechanical Ventilator 80 09/29/19 21:48 63 130/51 09/29/19 21:32 63 20 100 Mechanical Ventilator 80 62 20 80 09/29/19 21:30 60 20 156/61 (92) 99 09/29/19 21:00 62 20 130/51 (77) 98 09/29/19 21:00 20 Mechanical Ventilator 80 09/29/19 21:00 20 156/61 Mechanical Ventilator 80 09/29/19 20:07 62 154/59 09/29/19 20:04 20 Mechanical Ventilator 10.0 80 09/29/19 20:00 68 09/29/19 20:00 98.6 63 20 154/59 (90) 98 09/29/19 20:00 20 130/51 Mechanical Ventilator 80 09/29/19 20:00 Mechanical Ventilator Mechanical Ventilator 09/29/19 20:00 80 09/29/19 19:40 64 20 80 09/29/19 19:00 17 137/55 Mechanical Ventilator 80 09/29/19 19:00 17 Mechanical Ventilator 80 09/29/19 19:00 66 17 137/55 (82) 98 09/29/19 18:30 69 147/58 (87) 09/29/19 18:00 67 26 141/65 (90) 97 09/29/19 18:00 26 141/65 Mechanical Ventilator 80 09/29/19 18:00 26 Mechanical Ventilator 80 09/29/19 17:30 63 20 139/64 (89) 94 09/29/19 17:27 147/61 09/29/19 17:00 64 24 147/61 (89) 95 09/29/19 17:00 24 147/61 Mechanical Ventilator 80 09/29/19 17:00 24 Mechanical Ventilator 80 09/29/19 17:00 64 20 80 09/29/19 16:30 65 20 130/54 (79) 94 09/29/19 16:00 23 138/59 Mechanical Ventilator 80 09/29/19 16:00 23 Mechanical Ventilator 80 09/29/19 16:00 80 09/29/19 16:00 Mechanical Ventilator Mechanical Ventilator 09/29/19 16:00 98.8 68 23 138/59 (85) 94 09/29/19 15:38 69 23 154/57 (89) 93 09/29/19 15:30 70 09/29/19 15:30 70 26 139/58 (85) 99 09/29/19 15:05 68 20 80 09/29/19 15:00 21 141/69 Mechanical Ventilator 80 09/29/19 15:00 21 Mechanical Ventilator 80 09/29/19 15:00 67 21 141/69 (93) 97 09/29/19 14:30 67 20 144/61 (88) 93 09/29/19 14:00 21 136/57 Mechanical Ventilator 80 09/29/19 14:00 21 Mechanical Ventilator 80 09/29/19 14:00 71 21 136/57 (83) 94 09/29/19 13:33 28 Mechanical Ventilator 80 09/29/19 13:32 75 133/58 09/29/19 13:30 74 21 140/61 (87) 96 09/29/19 13:00 78 23 80 09/29/19 13:00 28 133/58 Mechanical Ventilator 80 09/29/19 13:00 28 Mechanical Ventilator 80 09/29/19 13:00 75 28 133/58 (83) 95 09/29/19 12:31 130/57 09/29/19 12:30 75 27 128/55 (79) 95 09/29/19 12:12 90 09/29/19 12:00 20 130/57 Mechanical Ventilator 80 09/29/19 12:00 20 Mechanical Ventilator 80 09/29/19 12:00 Mechanical Ventilator Mechanical Ventilator 09/29/19 12:00 80 09/29/19 12:00 98.7 68 20 130/57 (81) 94 09/29/19 11:45 72 20 126/54 (78) 95 09/29/19 11:30 75 21 137/56 (83) 95 09/29/19 11:15 73 20 129/57 (81) 94 09/29/19 11:00 82 24 140/61 (87) 95 09/29/19 11:00 24 140/61 Mechanical Ventilator 80 09/29/19 11:00 24 Mechanical Ventilator 80 09/29/19 10:57 19 154/68 Mechanical Ventilator 80 09/29/19 10:45 81 19 154/68 (96) 95 09/29/19 10:35 66 20 80 09/29/19 10:30 67 20 132/57 (82) 93 09/29/19 10:00 69 23 145/61 (89) 94 09/29/19 10:00 23 Mechanical Ventilator 80 09/29/19 09:37 20 138/51 Mechanical Ventilator 80 09/29/19 09:30 66 20 138/51 (80) 89 09/29/19 09:00 20 Mechanical Ventilator 80 09/29/19 09:00 20 134/48 Mechanical Ventilator 80 09/29/19 09:00 66 20 80 09/29/19 09:00 66 20 134/48 (96) 95 Objective: General Appearance: no apparent distress, bedridden middle age chronically ill looking female on vent AC 500-20-70% PEEP 5, less sedated Lines, tubes and drains: left jugular HD catheter HEENT: normocephalic, atraumatic, anicteric, trach - Shiley #7 cuffed XLT, secretions moderate amount, yellow color , thinconsistency Respiratory/Chest: no accessory muscle use, few scattered rhonchi bilaterally , Cardiovascular/Chest: normal rate, regular rhythm - SR on tele Abdomen: normal bowel sounds, non tender, soft, G tube Genitourinary/Rectal: Norman Extremities: no edema Skin Exam: warm/dry, multiple tattoos all over the body Neurologic: abnormal gait, sedated Musculoskeletal: atrophy - BLE Micro: Microbiology Date/Time Source Procedure Growth Status 09/27/19 10:00 Blood Blood Culture - Preliminary NO GROWTH AFTER 24 HOURS Resulted 09/27/19 09:45 Blood Blood Culture - Preliminary NO GROWTH AFTER 24 HOURS Resulted Critical Care - Subjective ROS Limited/Unobtainable: Yes Interval Events: no fevers, no leukocytosis no signs of resp distress ABG with mild hypoxemia, but sat >90% on monitor CXR pending for this am lots of oral secretions less sedated Condition: critical IV Access: central - Left jugular HD catheter EKG Rhythm: Sinus Rhythm FI02: 70 Vent Support Breath Rate: 20 Vent Support Mode: AC Vent Tidal Volume: 500 Sputum Amount: Small PEEP: 5.0 PIP: 20 Drips: versed 4 mg/hr, Fentanyl 220 mcg/min Tube Feeding Amount: 40 I&O: Intake and Output 09/29/19 09/30/19 19:00 07:00 Intake Total 1186.7 ml 1103.5 ml Output Total 100 ml 310 ml Balance 1086.7 ml 793.5 ml IV Total 646.7 ml 443.5 ml Tube Feeding 480 ml 480 ml Other 60 ml 180 ml Output Urine Total 100 ml 310 ml CXR: CXR 09/28 1. No significant change in perihilar pulmonary edema and pulmonary vascular congestion. 2. Subsegmental atelectasis versus infiltrates in the medial lung bases. Juve Martinez MD 09/30/19 1423: Critical Care - Asmt/Plan Assessment/Plan: Patient seen and examined with [employer]IEF. Agree with above A&P as it reflects our joint deliberations. Time Spent (Minutes): 40 Yara Castro NP Sep 30, 2019 09:02 Juve Martinez MD Sep 30, 2019 14:23
[2019-09-30] MEDS: OLANZapine 2.5mg tab GT SCH (09:03)
[2019-09-30] MEDS: Heparin 5000 units/ml inj SUBQ SCH ×2 (09:04→21:33)
--- NOTE | 2019-09-30 09:11 | Nephrology Progress Note ---
Assessment/Plan Problem List: (1) JAVIER (acute kidney injury) (2) Renal failure (ARF), acute on chronic (3) Dehydration (4) Electrolyte imbalance (5) Anemia (6) Respiratory failure, acute and chronic (7) COPD with exacerbation Assessment Patient is presented with sepsis and pneumonia and UTI Patient has acute renal failure, possible underlying chronic kidney failure Severe anemia Electrolyte imbalances: Hyponatremia, hypo-kalemia Chronic respiratory failure, COPD exacerbation Plan September 29: Lab reviewed. Chest x-ray result noted. Continues to have pulmonary congestion. Urine output low. Will attempt dialysis again today with ultrafiltration. September 28: Lab reviewed. ABG reviewed. Potassium supplement given. No dialysis at this point. Will eval patient status and renal parameters daily. September 27: Lab reviewed. Last dialysis September 25. Continue to monitor renal parameters. Hemodialysis as needed. September 26: Lab reviewed. Dialyzed yesterday. Potassium supplement given. Medication list reviewed. Will observe renal parameters and arrange for dialysis as needed. September 25: Lab reviewed. Currently on hemodialysis. Tolerating well. Stable from renal standpoint of view. Blood pressure medication adjusted by increasing hydralazine. September 24: Lab reviewed. ABG reviewed. Both lab and ABG much improved. Patient was dialyzed yesterday. We will attempt dialysis tomorrow again. Will adjust that blood pressure medication dosages. September 23: Lab reviewed. ABG reviewed. Patient acidotic. IV bicarb 1 dose is given. Patient has dialysis catheter. Will order dialysis for ultrafiltration and correction of acid-base. Discussed with ERASMO Mohr. September 22: Labs reviewed. Potassium high. Kayexalate and Reglan given. Will discuss with the consultants regarding initiation of dialysis. September 21: Patient is being sedated. Labs reviewed. Potassium supplement discontinued. GFR 20. Continue per current treatment plan. Dialysis and ultrafiltration is a consideration. September 20: Patient periodically agitated. Labs reviewed. Creatinine 2.4. Medication reviewed. Continue per consultants. Calculated creatinine clearance 21. May need isolated ultrafiltration on dialysis. Will discuss with PMD. Meanwhile hemoglobin is lower, defer transfusion to PMD. September 19: DC IV fluid. Zaroxolyn via GT tube. Potassium supplement. Attempt to diurese. Chest CT as bilateral pleural effusion. If diuresis unsuccessful, will consider dialysis and ultrafiltration. September 18: Potassium supplement IV given. Hemoglobin stable. Patient remains full code. Continue per consultants. Previously: Potassium supplement IV Slow IV hydration Epogen subcu Adjust blood pressure medication IV fluid, rate adjusted Norman catheter, intake and output Monitor renal parameters Avoid nephrotoxic's Antibiotics Per orders 2D echocardiogram Kidney ultrasound Subjective ROS Limited/Unobtainable: Yes Objective Objective Last 24 Hour Vital Signs Date Time Temp Pulse Resp B/P (MAP) Pulse Ox O2 Delivery O2 Flow Rate FiO2 09/30/19 09:00 81 30 163/65 (97) 93 09/30/19 08:30 80 26 155/63 (93) 92 09/30/19 08:00 Mechanical Ventilator Mechanical Ventilator 09/30/19 08:00 99.1 74 22 150/74 (99) 92 09/30/19 08:00 70 09/30/19 07:51 77 09/30/19 07:30 73 28 154/62 (92) 92 09/30/19 07:17 89 26 70 09/30/19 07:00 77 21 150/60 (90) 93 09/30/19 07:00 20 Mechanical Ventilator 70 09/30/19 07:00 20 150/60 Mechanical Ventilator 70 09/30/19 06:30 70 09/30/19 06:30 79 23 148/57 (87) 92 09/30/19 06:00 84 27 153/62 (92) 90 09/30/19 06:00 20 Mechanical Ventilator 80 09/30/19 06:00 20 153/62 Mechanical Ventilator 80 09/30/19 05:54 98.4 09/30/19 05:30 86 21 178/81 (113) 97 09/30/19 05:24 154/61 09/30/19 05:24 68 154/61 09/30/19 05:00 64 20 148/60 (89) 98 09/30/19 05:00 20 Mechanical Ventilator 80 09/30/19 05:00 21 148/60 Mechanical Ventilator 80 09/30/19 04:55 87 25 80 09/30/19 04:30 64 20 139/55 (83) 97 09/30/19 04:00 68 09/30/19 04:00 80 09/30/19 04:00 20 Mechanical Ventilator 80 09/30/19 04:00 20 143/56 Mechanical Ventilator 80 09/30/19 04:00 Mechanical Ventilator Mechanical Ventilator 09/30/19 04:00 98.5 63 20 143/56 (85) 92 09/30/19 03:11 68 22 80 09/30/19 03:00 71 20 155/69 (97) 89 09/30/19 03:00 20 Mechanical Ventilator 80 09/30/19 03:00 20 154/61 Mechanical Ventilator 80 09/30/19 02:30 70 20 151/62 (91) 97 09/30/19 02:00 71 21 150/57 (88) 98 09/30/19 02:00 20 Mechanical Ventilator 80 09/30/19 02:00 20 150/57 Mechanical Ventilator 80 09/30/19 01:39 20 Mechanical Ventilator 10.0 80 09/30/19 01:38 20 Mechanical Ventilator 80 09/30/19 01:30 60 21 166/75 (105) 95 09/30/19 01:17 114/54 09/30/19 01:00 20 Mechanical Ventilator 80 09/30/19 01:00 22 114/54 Mechanical Ventilator 80 09/30/19 01:00 60 20 156/66 (96) 95 09/30/19 00:55 76 20 80 09/30/19 00:30 61 20 140/54 (82) 95 09/30/19 00:00 80 09/30/19 00:00 Mechanical Ventilator Mechanical Ventilator 09/30/19 00:00 20 Mechanical Ventilator 80 09/30/19 00:00 20 140/54 Mechanical Ventilator 80 09/30/19 00:00 71 09/30/19 00:00 98.4 60 20 148/57 (87) 96 09/29/19 23:30 62 20 132/53 (79) 96 09/29/19 23:18 63 20 80 09/29/19 23:00 20 Mechanical Ventilator 80 09/29/19 23:00 64 19 150/57 (88) 98 09/29/19 22:57 20 143/55 Mechanical Ventilator 10.0 80 09/29/19 22:30 65 20 143/55 (84) 97 09/29/19 22:00 69 18 158/66 (96) 99 09/29/19 22:00 20 Mechanical Ventilator 80 09/29/19 21:48 63 130/51 09/29/19 21:32 63 20 100 Mechanical Ventilator 80 62 20 80 09/29/19 21:30 60 20 156/61 (92) 99 09/29/19 21:00 62 20 130/51 (77) 98 09/29/19 21:00 20 Mechanical Ventilator 80 09/29/19 21:00 20 156/61 Mechanical Ventilator 80 09/29/19 20:07 62 154/59 09/29/19 20:04 20 Mechanical Ventilator 10.0 80 09/29/19 20:00 68 09/29/19 20:00 98.6 63 20 154/59 (90) 98 09/29/19 20:00 20 130/51 Mechanical Ventilator 80 09/29/19 20:00 Mechanical Ventilator Mechanical Ventilator 09/29/19 20:00 80 09/29/19 19:40 64 20 80 09/29/19 19:00 17 137/55 Mechanical Ventilator 80 09/29/19 19:00 17 Mechanical Ventilator 80 09/29/19 19:00 66 17 137/55 (82) 98 09/29/19 18:30 69 147/58 (87) 09/29/19 18:00 67 26 141/65 (90) 97 09/29/19 18:00 26 141/65 Mechanical Ventilator 80 09/29/19 18:00 26 Mechanical Ventilator 80 09/29/19 17:30 63 20 139/64 (89) 94 09/29/19 17:27 147/61 09/29/19 17:00 64 24 147/61 (89) 95 09/29/19 17:00 24 147/61 Mechanical Ventilator 80 09/29/19 17:00 24 Mechanical Ventilator 80 09/29/19 17:00 64 20 80 09/29/19 16:30 65 20 130/54 (79) 94 09/29/19 16:00 23 138/59 Mechanical Ventilator 80 09/29/19 16:00 23 Mechanical Ventilator 80 09/29/19 16:00 80 09/29/19 16:00 Mechanical Ventilator Mechanical Ventilator 09/29/19 16:00 98.8 68 23 138/59 (85) 94 09/29/19 15:38 69 23 154/57 (89) 93 09/29/19 15:30 70 09/29/19 15:30 70 26 139/58 (85) 99 09/29/19 15:05 68 20 80 09/29/19 15:00 21 141/69 Mechanical Ventilator 80 09/29/19 15:00 21 Mechanical Ventilator 80 09/29/19 15:00 67 21 141/69 (93) 97 09/29/19 14:30 67 20 144/61 (88) 93 09/29/19 14:00 21 136/57 Mechanical Ventilator 80 09/29/19 14:00 21 Mechanical Ventilator 80 09/29/19 14:00 71 21 136/57 (83) 94 09/29/19 13:33 28 Mechanical Ventilator 80 09/29/19 13:32 75 133/58 09/29/19 13:30 74 21 140/61 (87) 96 09/29/19 13:00 78 23 80 09/29/19 13:00 28 133/58 Mechanical Ventilator 80 09/29/19 13:00 28 Mechanical Ventilator 80 09/29/19 13:00 75 28 133/58 (83) 95 09/29/19 12:31 130/57 09/29/19 12:30 75 27 128/55 (79) 95 09/29/19 12:12 90 09/29/19 12:00 20 130/57 Mechanical Ventilator 80 09/29/19 12:00 20 Mechanical Ventilator 80 09/29/19 12:00 Mechanical Ventilator Mechanical Ventilator 09/29/19 12:00 80 09/29/19 12:00 98.7 68 20 130/57 (81) 94 09/29/19 11:45 72 20 126/54 (78) 95 09/29/19 11:30 75 21 137/56 (83) 95 09/29/19 11:15 73 20 129/57 (81) 94 09/29/19 11:00 82 24 140/61 (87) 95 09/29/19 11:00 24 140/61 Mechanical Ventilator 80 09/29/19 11:00 24 Mechanical Ventilator 80 09/29/19 10:57 19 154/68 Mechanical Ventilator 80 09/29/19 10:45 81 19 154/68 (96) 95 09/29/19 10:35 66 20 80 09/29/19 10:30 67 20 132/57 (82) 93 09/29/19 10:00 69 23 145/61 (89) 94 09/29/19 10:00 23 Mechanical Ventilator 80 09/29/19 09:37 20 138/51 Mechanical Ventilator 80 09/29/19 09:30 66 20 138/51 (80) 89 Intake and Output 09/29/19 09/30/19 19:00 07:00 Intake Total 1186.7 ml 1103.5 ml Output Total 100 ml 310 ml Balance 1086.7 ml 793.5 ml IV Total 646.7 ml 443.5 ml Tube Feeding 480 ml 480 ml Other 60 ml 180 ml Output Urine Total 100 ml 310 ml Laboratory Tests 09/30/19 05:11: White Blood Count 9.6, Red Blood Count 2.75L, Hemoglobin 8.7L, Hematocrit 27.0L , Mean Corpuscular Volume 98, Mean Corpuscular Hemoglobin 31.8H, Mean Corpuscular Hemoglobin Concent 32.4, Red Cell Distribution Width 15.6H, Platelet Count 258, Mean Platelet Volume 6.1L, Neutrophils (%) (Auto) 79.3H, Lymphocytes (%) (Auto) 13.6L, Monocytes (%) (Auto) 4.6, Eosinophils (%) (Auto) 2.0, Basophils (%) (Auto) 0.5, Sodium Level 142, Potassium Level 3.9, Chloride Level 104, Carbon Dioxide Level 30, Anion Gap 8, Blood Urea Nitrogen 78H, Creatinine 2.6H, Estimat Glomerular Filtration Rate 19.7, Glucose Level 74, Calcium Level 8.7, Phosphorus Level 5.2H, Magnesium Level 2.5H, Total Bilirubin 0.3, Aspartate Amino Transf (AST/SGOT) 21, Alanine Aminotransferase (ALT/SGPT) 12, Alkaline Phosphatase 139H, C-Reactive Protein, Quantitative 16.7H, Pro-B- Type Natriuretic Peptide > 48723G, Total Protein 6.4, Albumin 1.7L, Globulin 4.7 , Albumin/Globulin Ratio 0.4L, Random Vancomycin Level 21.7 09/30/19 08:24: Arterial Blood pH 7.383, Arterial Blood Partial Pressure CO2 44.8, Arterial Blood Partial Pressure O2 54.0L, Arterial Blood HCO3 26.1H, Arterial Blood Oxygen Saturation 86.8*L, Arterial Blood Base Excess 0.8, Rojas Test Positive Height (Feet): 5 Height (Inches): 5.00 Weight (Pounds): 132 General Appearance: no apparent distress Cardiovascular: normal rate Respiratory/Chest: decreased breath sounds Abdomen: distended Objective No change Johnny Houston MD Sep 30, 2019 09:11
[2019-09-30] MEDS: fentaNYL 2500mcg/NS 250ml 250 ML IV SCH ×2 (10:01→22:22)
--- NOTE | 2019-09-30 10:03 | Diagnostic Imaging Report ---
Indication: Shortness of breath Technique: One view of the chest Comparison: 09/29/2019 Findings: Patient is rotated to the left. Tracheostomy, left jugular temporary dialysis catheter, median sternotomy sutures are again demonstrated. Bilateral edema versus infiltrates appears slightly worse than on the prior study. There is probably some pleural fluid on the left. Impression: Suspect slight worsening of bilateral small edema versus infiltrates, over one day. Other stable findings as noted.
--- NOTE | 2019-09-30 12:05 | General Progress Note ---
Assessment/Plan Problem List: (1) S/P aortic dissection repair ICD Codes: Z98.890 - Other specified postprocedural states SNOMED: 724203336, 903995729 (2) Sacral decubitus ulcer, stage IV ICD Codes: L89.154 - Pressure ulcer of sacral region, stage 4 SNOMED: 365930341, 294183833 (3) Anemia ICD Codes: D64.9 - Anemia, unspecified SNOMED: 308827380 (4) GT CLOGGED (5) Feeding by G-tube ICD Codes: Z93.1 - Gastrostomy status SNOMED: 300185356, 574367793 (6) Tracheostomy in place ICD Codes: Z93.0 - Tracheostomy status SNOMED: 555980416 (7) Pacemaker ICD Codes: Z95.0 - Presence of cardiac pacemaker SNOMED: 293133358 (8) Chronic respiratory failure ICD Codes: J96.10 - Chronic respiratory failure, unspecified whether with hypoxia or hypercapnia SNOMED: 89211230 Assessment/Plan: GTF monitor for residuals repeat labs ICU care Subjective ROS Limited/Unobtainable: No Allergies: Coded Allergies: No Known Allergies (Unverified , 10/10/17) Objective Last 24 Hour Vital Signs Date Time Temp Pulse Resp B/P (MAP) Pulse Ox O2 Delivery O2 Flow Rate FiO2 09/30/19 11:05 70 21 70 09/30/19 11:00 68 20 157/66 (96) 99 09/30/19 10:30 70 21 158/65 (96) 99 09/30/19 10:01 19 165/79 Mechanical Ventilator 90 09/30/19 10:00 22 Mechanical Ventilator 70 09/30/19 10:00 22 160/68 Mechanical Ventilator 90 09/30/19 10:00 73 22 160/68 (98) 100 09/30/19 09:20 90 09/30/19 09:19 76 23 70 09/30/19 09:00 30 Mechanical Ventilator 70 09/30/19 09:00 30 163/65 Mechanical Ventilator 70 09/30/19 09:00 81 30 163/65 (97) 93 09/30/19 08:30 80 26 155/63 (93) 92 09/30/19 08:00 Mechanical Ventilator Mechanical Ventilator 09/30/19 08:00 22 Mechanical Ventilator 70 09/30/19 08:00 22 150/74 Mechanical Ventilator 70 09/30/19 08:00 99.1 74 22 150/74 (99) 92 09/30/19 08:00 70 09/30/19 07:51 77 09/30/19 07:30 73 28 154/62 (92) 92 09/30/19 07:17 89 26 70 09/30/19 07:00 77 21 150/60 (90) 93 09/30/19 07:00 20 Mechanical Ventilator 70 09/30/19 07:00 20 150/60 Mechanical Ventilator 70 09/30/19 06:30 70 09/30/19 06:30 79 23 148/57 (87) 92 09/30/19 06:00 84 27 153/62 (92) 90 09/30/19 06:00 20 Mechanical Ventilator 80 09/30/19 06:00 20 153/62 Mechanical Ventilator 80 09/30/19 05:54 98.4 09/30/19 05:30 86 21 178/81 (113) 97 09/30/19 05:24 154/61 09/30/19 05:24 68 154/61 09/30/19 05:00 64 20 148/60 (89) 98 09/30/19 05:00 20 Mechanical Ventilator 80 09/30/19 05:00 21 148/60 Mechanical Ventilator 80 09/30/19 04:55 87 25 80 09/30/19 04:30 64 20 139/55 (83) 97 09/30/19 04:00 68 09/30/19 04:00 80 09/30/19 04:00 20 Mechanical Ventilator 80 09/30/19 04:00 20 143/56 Mechanical Ventilator 80 09/30/19 04:00 Mechanical Ventilator Mechanical Ventilator 09/30/19 04:00 98.5 63 20 143/56 (85) 92 09/30/19 03:11 68 22 80 09/30/19 03:00 71 20 155/69 (97) 89 09/30/19 03:00 20 Mechanical Ventilator 80 09/30/19 03:00 20 154/61 Mechanical Ventilator 80 09/30/19 02:30 70 20 151/62 (91) 97 09/30/19 02:00 71 21 150/57 (88) 98 09/30/19 02:00 20 Mechanical Ventilator 80 09/30/19 02:00 20 150/57 Mechanical Ventilator 80 09/30/19 01:39 20 Mechanical Ventilator 10.0 80 09/30/19 01:38 20 Mechanical Ventilator 80 09/30/19 01:30 60 21 166/75 (105) 95 09/30/19 01:17 114/54 09/30/19 01:00 20 Mechanical Ventilator 80 09/30/19 01:00 22 114/54 Mechanical Ventilator 80 09/30/19 01:00 60 20 156/66 (96) 95 09/30/19 00:55 76 20 80 09/30/19 00:30 61 20 140/54 (82) 95 09/30/19 00:00 80 09/30/19 00:00 Mechanical Ventilator Mechanical Ventilator 09/30/19 00:00 20 Mechanical Ventilator 80 09/30/19 00:00 20 140/54 Mechanical Ventilator 80 09/30/19 00:00 71 09/30/19 00:00 98.4 60 20 148/57 (87) 96 09/29/19 23:30 62 20 132/53 (79) 96 09/29/19 23:18 63 20 80 09/29/19 23:00 20 Mechanical Ventilator 80 09/29/19 23:00 64 19 150/57 (88) 98 09/29/19 22:57 20 143/55 Mechanical Ventilator 10.0 80 09/29/19 22:30 65 20 143/55 (84) 97 09/29/19 22:00 69 18 158/66 (96) 99 09/29/19 22:00 20 Mechanical Ventilator 80 09/29/19 21:48 63 130/51 09/29/19 21:32 63 20 100 Mechanical Ventilator 80 62 20 80 09/29/19 21:30 60 20 156/61 (92) 99 09/29/19 21:00 62 20 130/51 (77) 98 09/29/19 21:00 20 Mechanical Ventilator 80 09/29/19 21:00 20 156/61 Mechanical Ventilator 80 09/29/19 20:07 62 154/59 09/29/19 20:04 20 Mechanical Ventilator 10.0 80 09/29/19 20:00 68 09/29/19 20:00 98.6 63 20 154/59 (90) 98 09/29/19 20:00 20 130/51 Mechanical Ventilator 80 8/16/20 20:00 Mechanical Ventilator Mechanical Ventilator 09/29/19 20:00 80 09/29/19 19:40 64 20 80 09/29/19 19:00 17 137/55 Mechanical Ventilator 80 09/29/19 19:00 17 Mechanical Ventilator 80 09/29/19 19:00 66 17 137/55 (82) 98 09/29/19 18:30 69 147/58 (87) 09/29/19 18:00 67 26 141/65 (90) 97 09/29/19 18:00 26 141/65 Mechanical Ventilator 80 09/29/19 18:00 26 Mechanical Ventilator 80 09/29/19 17:30 63 20 139/64 (89) 94 09/29/19 17:27 147/61 09/29/19 17:00 64 24 147/61 (89) 95 09/29/19 17:00 24 147/61 Mechanical Ventilator 80 09/29/19 17:00 24 Mechanical Ventilator 80 09/29/19 17:00 64 20 80 09/29/19 16:30 65 20 130/54 (79) 94 09/29/19 16:00 23 138/59 Mechanical Ventilator 80 09/29/19 16:00 23 Mechanical Ventilator 80 09/29/19 16:00 80 09/29/19 16:00 Mechanical Ventilator Mechanical Ventilator 09/29/19 16:00 98.8 68 23 138/59 (85) 94 09/29/19 15:38 69 23 154/57 (89) 93 09/29/19 15:30 70 09/29/19 15:30 70 26 139/58 (85) 99 09/29/19 15:05 68 20 80 09/29/19 15:00 21 141/69 Mechanical Ventilator 80 09/29/19 15:00 21 Mechanical Ventilator 80 09/29/19 15:00 67 21 141/69 (93) 97 09/29/19 14:30 67 20 144/61 (88) 93 09/29/19 14:00 21 136/57 Mechanical Ventilator 80 09/29/19 14:00 21 Mechanical Ventilator 80 09/29/19 14:00 71 21 136/57 (83) 94 09/29/19 13:33 28 Mechanical Ventilator 80 09/29/19 13:32 75 133/58 09/29/19 13:30 74 21 140/61 (87) 96 09/29/19 13:30 22 Mechanical Ventilator 80 09/29/19 13:00 78 23 80 09/29/19 13:00 28 133/58 Mechanical Ventilator 80 09/29/19 13:00 28 Mechanical Ventilator 80 09/29/19 13:00 75 28 133/58 (83) 95 09/29/19 12:31 130/57 09/29/19 12:30 75 27 128/55 (79) 95 09/29/19 12:12 90 Intake and Output 09/29/19 09/30/19 19:00 07:00 Intake Total 1190.7 ml 1103.5 ml Output Total 100 ml 310 ml Balance 1090.7 ml 793.5 ml IV Total 650.7 ml 443.5 ml Tube Feeding 480 ml 480 ml Other 60 ml 180 ml Output Urine Total 100 ml 310 ml Laboratory Tests 09/30/19 05:11: White Blood Count 9.6, Red Blood Count 2.75L, Hemoglobin 8.7L, Hematocrit 27.0L , Mean Corpuscular Volume 98, Mean Corpuscular Hemoglobin 31.8H, Mean Corpuscular Hemoglobin Concent 32.4, Red Cell Distribution Width 15.6H, Platelet Count 258, Mean Platelet Volume 6.1L, Neutrophils (%) (Auto) 79.3H, Lymphocytes (%) (Auto) 13.6L, Monocytes (%) (Auto) 4.6, Eosinophils (%) (Auto) 2.0, Basophils (%) (Auto) 0.5, Sodium Level 142, Potassium Level 3.9, Chloride Level 104, Carbon Dioxide Level 30, Anion Gap 8, Blood Urea Nitrogen 78H, Creatinine 2.6H, Estimat Glomerular Filtration Rate 19.7, Glucose Level 74, Calcium Level 8.7, Phosphorus Level 5.2H, Magnesium Level 2.5H, Total Bilirubin 0.3, Aspartate Amino Transf (AST/SGOT) 21, Alanine Aminotransferase (ALT/SGPT) 12, Alkaline Phosphatase 139H, C-Reactive Protein, Quantitative 16.7H, Pro-B- Type Natriuretic Peptide > 74980T, Total Protein 6.4, Albumin 1.7L, Globulin 4.7 , Albumin/Globulin Ratio 0.4L, Random Vancomycin Level 21.7 09/30/19 08:24: Arterial Blood pH 7.383, Arterial Blood Partial Pressure CO2 44.8, Arterial Blood Partial Pressure O2 54.0L, Arterial Blood HCO3 26.1H, Arterial Blood Oxygen Saturation 86.8*L, Arterial Blood Base Excess 0.8, Rojas Test Positive Height (Feet): 5 Height (Inches): 5.00 Weight (Pounds): 132 General Appearance: no apparent distress EENT: normal ENT inspection Neck: supple Cardiovascular: normal rate Respiratory/Chest: decreased breath sounds Abdomen: normal bowel sounds, non tender, soft Extremities: non-tender Inder Mccauley MD Sep 30, 2019 12:05
[2019-09-30] MEDS: Albuterol/Ipratropium 3ml neb HHN SCH ×2 (13:36→19:45)
--- NOTE | 2019-09-30 14:53 | Surgery Progress Note ---
Surgery Progress Note Subjective Additional Comments increased versed and fent drip more comfortable now no n/v Objective Last 24 Hour Vital Signs Date Time Temp Pulse Resp B/P (MAP) Pulse Ox O2 Delivery O2 Flow Rate FiO2 09/30/19 14:30 60 09/30/19 14:00 71 21 168/64 (98) 100 09/30/19 13:36 71 22 99 Mechanical Ventilator 90 74 22 90 09/30/19 13:30 70 21 156/68 (97) 97 09/30/19 13:30 21 Mechanical Ventilator 90 09/30/19 13:00 20 Mechanical Ventilator 90 09/30/19 13:00 20 157/66 Mechanical Ventilator 90 09/30/19 13:00 70 20 157/66 (96) 98 09/30/19 12:45 73 24 173/78 (109) 97 09/30/19 12:30 69 20 148/62 (90) 98 09/30/19 12:15 69 20 144/62 (89) 98 09/30/19 12:00 98.9 70 20 155/62 (93) 98 09/30/19 12:00 20 Mechanical Ventilator 90 09/30/19 12:00 20 155/62 Mechanical Ventilator 90 09/30/19 12:00 Mechanical Ventilator Mechanical Ventilator 09/30/19 11:58 70 09/30/19 11:45 76 23 164/65 (98) 98 09/30/19 11:30 71 21 153/68 (96) 98 09/30/19 11:15 68 21 154/63 (93) 98 09/30/19 11:05 70 21 70 09/30/19 11:00 68 20 157/66 (96) 99 09/30/19 11:00 20 Mechanical Ventilator 90 09/30/19 11:00 20 157/66 Mechanical Ventilator 90 09/30/19 10:30 70 21 158/65 (96) 99 09/30/19 10:01 19 165/79 Mechanical Ventilator 90 09/30/19 10:00 22 Mechanical Ventilator 70 09/30/19 10:00 22 160/68 Mechanical Ventilator 90 09/30/19 10:00 73 22 160/68 (98) 100 09/30/19 09:20 90 09/30/19 09:19 76 23 70 09/30/19 09:00 30 Mechanical Ventilator 70 09/30/19 09:00 30 163/65 Mechanical Ventilator 70 09/30/19 09:00 81 30 163/65 (97) 93 09/30/19 08:30 80 26 155/63 (93) 92 09/30/19 08:00 Mechanical Ventilator Mechanical Ventilator 09/30/19 08:00 22 Mechanical Ventilator 70 09/30/19 08:00 22 150/74 Mechanical Ventilator 70 09/30/19 08:00 99.1 74 22 150/74 (99) 92 09/30/19 08:00 70 09/30/19 07:51 77 09/30/19 07:30 73 28 154/62 (92) 92 09/30/19 07:17 89 26 70 09/30/19 07:00 77 21 150/60 (90) 93 09/30/19 07:00 20 Mechanical Ventilator 70 09/30/19 07:00 20 150/60 Mechanical Ventilator 70 09/30/19 06:30 70 09/30/19 06:30 79 23 148/57 (87) 92 09/30/19 06:00 84 27 153/62 (92) 90 09/30/19 06:00 20 Mechanical Ventilator 80 09/30/19 06:00 20 153/62 Mechanical Ventilator 80 09/30/19 05:54 98.4 09/30/19 05:30 86 21 178/81 (113) 97 09/30/19 05:24 154/61 09/30/19 05:24 68 154/61 09/30/19 05:00 64 20 148/60 (89) 98 09/30/19 05:00 20 Mechanical Ventilator 80 09/30/19 05:00 21 148/60 Mechanical Ventilator 80 09/30/19 04:55 87 25 80 09/30/19 04:30 64 20 139/55 (83) 97 09/30/19 04:00 68 09/30/19 04:00 80 09/30/19 04:00 20 Mechanical Ventilator 80 09/30/19 04:00 20 143/56 Mechanical Ventilator 80 09/30/19 04:00 Mechanical Ventilator Mechanical Ventilator 09/30/19 04:00 98.5 63 20 143/56 (85) 92 09/30/19 03:11 68 22 80 09/30/19 03:00 71 20 155/69 (97) 89 09/30/19 03:00 20 Mechanical Ventilator 80 09/30/19 03:00 20 154/61 Mechanical Ventilator 80 09/30/19 02:30 70 20 151/62 (91) 97 09/30/19 02:00 71 21 150/57 (88) 98 09/30/19 02:00 20 Mechanical Ventilator 80 09/30/19 02:00 20 150/57 Mechanical Ventilator 80 09/30/19 01:39 20 Mechanical Ventilator 10.0 80 09/30/19 01:38 20 Mechanical Ventilator 80 09/30/19 01:30 60 21 166/75 (105) 95 09/30/19 01:17 114/54 09/30/19 01:00 20 Mechanical Ventilator 80 09/30/19 01:00 22 114/54 Mechanical Ventilator 80 09/30/19 01:00 60 20 156/66 (96) 95 09/30/19 00:55 76 20 80 09/30/19 00:30 61 20 140/54 (82) 95 09/30/19 00:00 80 09/30/19 00:00 Mechanical Ventilator Mechanical Ventilator 09/30/19 00:00 20 Mechanical Ventilator 80 09/30/19 00:00 20 140/54 Mechanical Ventilator 80 09/30/19 00:00 71 09/30/19 00:00 98.4 60 20 148/57 (87) 96 09/29/19 23:30 62 20 132/53 (79) 96 09/29/19 23:18 63 20 80 09/29/19 23:00 20 Mechanical Ventilator 80 09/29/19 23:00 64 19 150/57 (88) 98 09/29/19 22:57 20 143/55 Mechanical Ventilator 10.0 80 09/29/19 22:30 65 20 143/55 (84) 97 09/29/19 22:00 69 18 158/66 (96) 99 09/29/19 22:00 20 Mechanical Ventilator 80 09/29/19 21:48 63 130/51 09/29/19 21:32 63 20 100 Mechanical Ventilator 80 62 20 80 09/29/19 21:30 60 20 156/61 (92) 99 09/29/19 21:00 62 20 130/51 (77) 98 09/29/19 21:00 20 Mechanical Ventilator 80 09/29/19 21:00 20 156/61 Mechanical Ventilator 80 09/29/19 20:07 62 154/59 09/29/19 20:04 20 Mechanical Ventilator 10.0 80 09/29/19 20:00 68 09/29/19 20:00 98.6 63 20 154/59 (90) 98 09/29/19 20:00 20 130/51 Mechanical Ventilator 80 09/29/19 20:00 Mechanical Ventilator Mechanical Ventilator 09/29/19 20:00 80 09/29/19 19:40 64 20 80 09/29/19 19:00 17 137/55 Mechanical Ventilator 80 09/29/19 19:00 17 Mechanical Ventilator 80 09/29/19 19:00 66 17 137/55 (82) 98 09/29/19 18:30 69 147/58 (87) 09/29/19 18:00 67 26 141/65 (90) 97 09/29/19 18:00 26 141/65 Mechanical Ventilator 80 09/29/19 18:00 26 Mechanical Ventilator 80 09/29/19 17:30 63 20 139/64 (89) 94 09/29/19 17:27 147/61 09/29/19 17:00 64 24 147/61 (89) 95 09/29/19 17:00 24 147/61 Mechanical Ventilator 80 09/29/19 17:00 24 Mechanical Ventilator 80 09/29/19 17:00 64 20 80 09/29/19 16:30 65 20 130/54 (79) 94 09/29/19 16:00 23 138/59 Mechanical Ventilator 80 09/29/19 16:00 23 Mechanical Ventilator 80 09/29/19 16:00 80 09/29/19 16:00 Mechanical Ventilator Mechanical Ventilator 09/29/19 16:00 98.8 68 23 138/59 (85) 94 09/29/19 15:38 69 23 154/57 (89) 93 09/29/19 15:30 70 09/29/19 15:30 70 26 139/58 (85) 99 09/29/19 15:05 68 20 80 09/29/19 15:00 21 141/69 Mechanical Ventilator 80 09/29/19 15:00 21 Mechanical Ventilator 80 09/29/19 15:00 67 21 141/69 (93) 97 I&O Intake and Output 09/29/19 09/30/19 19:00 07:00 Intake Total 1190.7 ml 1103.5 ml Output Total 100 ml 310 ml Balance 1090.7 ml 793.5 ml IV Total 650.7 ml 443.5 ml Tube Feeding 480 ml 480 ml Other 60 ml 180 ml Output Urine Total 100 ml 310 ml Dressing: other Wound: other Drains: other Cardiovascular: RSR Respiratory: decreased breath sounds Abdomen: soft, non-tender, present bowel sounds Extremities: no tenderness, no cyanosis Laboratory Tests Test 09/30/19 05:11 09/30/19 08:24 White Blood Count 9.6 K/UL (4.8-10.8) Red Blood Count 2.75 M/UL (4.20-5.40) L Hemoglobin 8.7 G/DL (12.0-16.0) L Hematocrit 27.0 % (37.0-47.0) L Mean Corpuscular Volume 98 FL (80-99) Mean Corpuscular Hemoglobin 31.8 PG (27.0-31.0) H Mean Corpuscular Hemoglobin Concent 32.4 G/DL (32.0-36.0) Red Cell Distribution Width 15.6 % (11.6-14.8) H Platelet Count 258 K/UL (150-450) Mean Platelet Volume 6.1 FL (6.5-10.1) L Neutrophils (%) (Auto) 79.3 % (45.0-75.0) H Lymphocytes (%) (Auto) 13.6 % (20.0-45.0) L Monocytes (%) (Auto) 4.6 % (1.0-10.0) Eosinophils (%) (Auto) 2.0 % (0.0-3.0) Basophils (%) (Auto) 0.5 % (0.0-2.0) Sodium Level 142 MMOL/L (136-145) Potassium Level 3.9 MMOL/L (3.5-5.1) Chloride Level 104 MMOL/L (98-107) Carbon Dioxide Level 30 MMOL/L (21-32) Anion Gap 8 mmol/L (5-15) Blood Urea Nitrogen 78 mg/dL (7-18) H Creatinine 2.6 MG/DL (0.55-1.30) H Estimat Glomerular Filtration Rate 19.7 mL/min (>60) Glucose Level 74 MG/DL (74-106) Calcium Level 8.7 MG/DL (8.5-10.1) Phosphorus Level 5.2 MG/DL (2.5-4.9) H Magnesium Level 2.5 MG/DL (1.8-2.4) H Total Bilirubin 0.3 MG/DL (0.2-1.0) Aspartate Amino Transf (AST/SGOT) 21 U/L (15-37) Alanine Aminotransferase (ALT/SGPT) 12 U/L (12-78) Alkaline Phosphatase 139 U/L (46-116) H C-Reactive Protein, Quantitative 16.7 mg/dL (0.00-0.90) H Pro-B-Type Natriuretic Peptide > 41946 pg/mL (0-125) H Total Protein 6.4 G/DL (6.4-8.2) Albumin 1.7 G/DL (3.4-5.0) L Globulin 4.7 g/dL Albumin/Globulin Ratio 0.4 (1.0-2.7) L Random Vancomycin Level 21.7 ug/mL Arterial Blood pH 7.383 (7.350-7.450) Arterial Blood Partial Pressure CO2 44.8 mmHg (35.0-45.0) Arterial Blood Partial Pressure O2 54.0 mmHg (75.0-100.0) L Arterial Blood HCO3 26.1 mmol/L (22.0-26.0) H Arterial Blood Oxygen Saturation 86.8 % (95-100) *L Arterial Blood Base Excess 0.8 (-2-2) Rojas Test Positive Plan Problems: (1) Anemia (2) Proteinuria (3) UTI (urinary tract infection) (4) ARF (acute renal failure) (5) ACS (acute coronary syndrome) (6) Respiratory failure, acute and chronic (7) HCAP (healthcare-associated pneumonia) (8) Abrasion of lip, initial encounter (9) COPD with exacerbation (10) Hypokalemia (11) Sepsis Assessment & Plan: Leukocytosis, anemia, abnormal labs. Renal insufficiency potentially dehydrated Abnormal LFTs alk phos elevated Urine noted significant bacteria likely UTI etiology Wound stable still requiring local care IV antibiotics per infectious disease Discussed with manager part Dr. Berkowitz air mattress turn q2h nutritional tf will follow with recs thank you CT noted pending VQ scan - noted poor study low prob PE work respiratory increasing needs sedation weaning vent settings 80% peep 10 now comfortable Hd line in receiving HD plan for left thora 09/26 (12) Chronic respiratory failure (13) Ascites (14) Bacteremia (15) Hypernatremia (16) Pleural effusion (17) Pacemaker (18) Aortic dissection, thoracic (19) Tracheostomy in place Assessment & Plan: trach stable no bleeding currently likely tongue etiology of mild oozing currently hemostatic without trauma (20) Feeding by G-tube Assessment & Plan: okay to resume tube feeds via g tube patent and functional dressings okay DAILY ESTIMATED NEEDS: Needs based on Pulmonary, wound 49kg 30-35 kcals/kg 5287-1038 total kcals 1.25-2 g protein/kg 61-98 g total protein Fluid per MD NUTRITION DIAGNOSIS: * Swallowing difficulty R/T dysphagia, respiratory status as evidenced by vent dep via T-collar, GT Dep. (CURRENT TF: Nepro @45ml/hr x 24 hrs) ENTERAL NUTRITION RECOMMENDATIONS: Nepro @ 40ml/hr x 24 hrs to provide 960ml, 1728kcal, 78g prot, 698ml free water * Rec LOWER current rate to 40ml/hr for 24 hrs run. 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 Base of wound is granular with bone exposure at base of sacrococcygeal.(L)10.5cm x (W06.5cm x (D) 2.8cm , undermining 11-3 by 3.6cm @12 o'clock. small amt serosanguineous exudate noted . Zap epithelial along edges bordered by darker skin tone without erythema. Resolving Pressure injury L ischium. Base of wound is 95% pink epithelial ,5% noni at center base of wound. No exudate noted. Both heels are boggy with non-Blanching erythema. Tx.plan: Cleanse Sacral wound with Saline. Loosely pack with Hydrogel impregnated Kerlix. Apply Moisture Barrier Periwound. Cover with Optifoam drsg Daily and prn. Apply Moisture Barrier paste to L Ischium. Cover with Optifoam drsg. Changee very 3 days and prn. Apply Cavilon Skin Barrier to both heels. Cover each heel with Optifoam drsgs. Change every 7 days and prn. Reposition at least every 2hours or as tolerated. Off-load heels with pillow. APM/JENNIFER Mattress overlay. Lane Saavedra Sep 30, 2019 14:53
[2019-09-30] MEDS: Dyna-Hex 2% Top Sol 2oz TOPIC SCH (21:30)
[2019-09-30] MEDS: Epoetin Alfa-EPBX(ESRD on dialysis)10,000 unit/ml vial SUBQ SCH (21:34)
[2019-09-30] MEDS: Sertraline 100mg tab GT SCH (21:34)
[2019-10-01] VITALS (57 sets, daily range): BP systolic 117–180; BP diastolic 45–73
[2019-10-01] MEDS: HydrALAZINE 50mg tab GT SCH ×4 (00:24→17:47)
[2019-10-01] MEDS: traMADol 50mg tab GT SCH ×4 (00:25→17:45)
[2019-10-01] MEDS: Docusate 100mg/10ml Liq GT SCH ×3 (00:44→17:46)
[2019-10-01] MEDS: Midazolam for drip 50 MG in NS 90 ML IV PRN ×2 (01:30→12:00)
[2019-10-01] MEDS: Albuterol/Ipratropium 3ml neb HHN SCH ×4 (01:31→20:09)
--- NOTE | 2019-10-01 03:29 | Progress Note ---
DATE: 09/30/2019 SUBJECTIVE: The patient is a 49-year-old lady who is a resident of an [facility] care facility subacute unit for the last several weeks. She is known to have multiple chronic medical syndrome that will be detailed in the following progress report. Patient was transferred from the [facility] care [facility] to [facility] ER because of persistent chest pain. Assessment at the ER revealed a BUN of 183 and creatinine is 2.8. Potassium was 3.1, magnesium of 4.1, ferritin at 1200. Hemoglobin and hematocrit of 7.2 and 20.1. She received treatment for hyperkalemia, received broad-spectrum antibiotics, and was transferred to the cardiac observation unit. Over the last 2 weeks, patient received hemodialysis. She underwent pleurocentesis and 900 mL of pleural fluid was removed. She was placed on fentanyl drip because of agitation. She has been transfused and received Epogen 10,000 units Monday, Monday, and Monday. She is also on midazolam drip over 24 hours. Currently, she is awake, alert, responsive, and tearful. PHYSICAL EXAMINATION: VITAL SIGNS: Her blood pressure is 139/58, pulse is 68, respirations 20, and temperature is 97. HEENT: Eyes were normal. Pupils were round, equal, and reactive to light. Extraocular movements were normal. Temporal arteries were palpable bilaterally with bilateral temporal wasting. ENT, mucous membranes were not dehydrated, moist and intact. NECK: Supple with no JVD without lymph nodes. Tracheostomy site is clean, however, JVD could not be assessed properly as the patient was at 30 degrees. LUNGS: There are bilateral rhonchi at both bases. HEART: Normal sounds with regular beats. There is no tachycardia at rest. ABDOMEN: Soft, flat, nontender with normal bowel sounds. EXTREMITIES: Warm without cyanosis, clubbing, or edema with remarkable diffuse muscle wasting both quadriceps and triceps of patient. LABORATORY AND DIAGNOSTIC DATA: Hemoglobin is 8.7, hematocrit 27.2 with MCV of 98, WBC of 9.6, and platelets of 258. Her BUN and creatinine are 78 and 2.6 respectively. Her sodium is 142, potassium 3.9, chloride 104, CO2 is 30. Her calcium is 6.7 and magnesium is 2.5 and phosphorus is 5.2. SGOT and SGPT are normal. Her CRP is 16.7. Her proBNP is 35,000. Her albumin is 1.7 and total protein is 6.4. Her chest x-ray suggests worsening of bilateral pulmonary edema as compared to yesterday. temporary dialysis catheter. There are median sternotomy sutures. The pulmonary edema can also be infiltrate. Repeat laboratory tests will be done in the a.m. The patient continued to be on hemodialysis on broad-spectrum antibiotics on midazolam and fentanyl drip. Lucas Dong M.D. DR: RENY JOB#: [id number] CC:
[2019-10-01] MEDS: TAZOBACTAM IV SCH ×3 (05:10→20:37)
[2019-10-01] MEDS: NS IV SCH ×3 (05:10→20:37)
[2019-10-01] MEDS: CEFTOLOZANE IV SCH ×3 (05:10→20:37)
[2019-10-01] MEDS: dilTIAZem HCl 30mg tab GT SCH ×3 (05:13→21:23)
[2019-10-01] MEDS: Metoclopramide 10mg/2ml Inj IVP SCH ×3 (05:14→21:23)
[2019-10-01 06:11] LABS: BASOPHILS % (AUTO) 0.6 % (0.0-2.0); EOSINOPHILS % (AUTO) 0.4 % (0.0-3.0); HEMATOCRIT 28.3 % (37.0-47.0); HEMOGLOBIN 9.1 G/DL (12.0-16.0); LYMPHOCYTES % (AUTO) 19.3 % (20.0-45.0); MEAN CORPUSCULAR VOLUME 97 FL (80-99); NEUTROPHILS % (AUTO) 74.7 % (45.0-75.0); PLATELET COUNT 287 K/UL (150-450); RED BLOOD COUNT 2.92 M/UL (4.20-5.40); RED CELL DISTRIBUTION WIDTH 15.6 % (11.6-14.8); WHITE BLOOD COUNT 7.4 K/UL (4.8-10.8)
[2019-10-01 06:38] LABS: ALBUMIN 1.8 G/DL (3.4-5.0); ALBUMIN/GLOBULIN RATIO 0.4 (1.0-2.7); ALKALINE PHOSPHATASE 145 U/L (46-116); ANION GAP 10 mmol/L (5-15); ASPARTATE AMINO TRANSFERASE 13 U/L (15-37); BILIRUBIN,TOTAL 0.3 MG/DL (0.2-1.0); BLOOD UREA NITROGEN 50 mg/dL (7-18); CALCIUM 8.1 MG/DL (8.5-10.1); CARBON DIOXIDE 29 MMOL/L (21-32); CHLORIDE 99 MMOL/L (98-107); CREATININE 1.9 MG/DL (0.55-1.30); POTASSIUM 3.2 MMOL/L (3.5-5.1); SODIUM 138 MMOL/L (136-145)
--- NOTE | 2019-10-01 07:01 | Hematology/Onc Progress Note ---
Assessment/Plan Assessment/Plan Assessment and Recs # Leukocytosis, now with gram positive bacteremias well as pna noted --> historically --> PPM site (pocket) infection (redness and pain, bacteremia) and likely pocket abscess - no vegetation seen on ABBIE --> is s'p pm removal and also pocket infection is better --> per cards recs in re to tach/davis --> wbc 15-->19-->17-->15-->13->12-->13-->12>13-->18-->9 --> ABX cefepime/levaquin--> vanc/angelo --> ID recs are noted # Anemia of chronic disease due to underlying chronic medical issues, multifactorial --> Anemia workup has been reviewed, cw acd --> No evidence of hemolysis is noted, peripheral smear has been reviewed. --> Hgb goal >7. Transfuse prn. --> Epogen started --> Medications have been reviewed --> low threshold for gi evaluation in case has occult + --> hgb 7.1-->7.8-->8.9->9.2-->8.5-->9.7-->10-->8.8-->9.6-->8.7->8.6-->7.2->8.7- >9.1 --> 1 unit prbc 09/27 # Thrombocytois is likely reactive process, is s/p infection --> plt trend 610k-->706k --> p smear reviewed # Acute hypoxic respiratory failure s/p intubation 11/23- ?ARDS --> on vent/trach # Gram positive bacteremia- real bacteremia- 2ry to above and probable PNA --> per id care # JAVIER initially >2 --> now improved with D5w # Dysphagia s/p peg # Thoracic aortic dissection s/p repair early 2017 # Psychiatric history on ativan/haldol # [place] resident # Dvt ppx heparin sq The timing of this note does not necessarily reflect the time of the patient was seen. Greatly appreciate consultation. Subjective HEENT: Denies: no symptoms, eye pain, blurred vision, tearing, double vision, ear pain, ear discharge, nose pain, nose congestion, throat pain, throat swelling, mouth pain, mouth swelling, other Cardiovascular: Denies: no symptoms, chest pain, edema, irregular heart rate, lightheadedness, palpitations, syncope, other Respiratory: Denies: no symptoms, cough, shortness of breath, SOB with excertion, SOB at rest, sputum, wheezing, other Genitourinary: Denies: no symptoms, burning, discharge, frequency, flank pain, hematuria, incontinence, pain, urgency, other Neurologic/Psychiatric: Denies: no symptoms, anxiety, depressed, emotional problems, headache, numbness, paresthesia, pre-existing deficit, seizure, tingling, tremors, weakness, other Hematologic/Lymphatic: Denies: no symptoms, anemia, easy bleeding, easy bruising, adenopathy, other Allergies: Coded Allergies: No Known Allergies (Unverified , 10/10/17) Subjective 09/16 on vent now, consulted in am pulm, on vent setting, labs noted, hep sq 09/17 meds noted, cbc noted, labs noted, no bleeding 09/18 is to undergo potential v/q scan given abg, labs noted, resless, on ativan, to get haldol today, roman rn 09/19 remains agitated, covering, with sacral wound seeping, likely cause of anemia, roman rn 09/26 restless, remains agitated, gtube ripped, eval with rn, and ifeoma consulted 09/27 remains on vent, agitated, seen by gi, hgb low, roman George to transfuse 1 unit prbc 09/28 meds noted, no bleeding, on vent, s/p blood tranfusion, cbc pending, roman rn 09/29 remains in the icu, roman rn in the am, agitated, on versed, fentanyl, restraints 09/30 in icu, trach to vent, on gtube feeds, fentanyl, agitated Objective Objective Current Medications Medications (Trade) Dose Ordered Sig/Penny Route PRN Reason Start Time Stop Time Status Last Admin Dose Admin Acetaminophen (Tylenol) 325 mg Q6H PRN GT Temp >100.5 09/23/19 10:45 10/23/19 10:44 09/23/19 18:55 Albuterol/ Ipratropium (Albuterol/ Ipratropium) 3 ml Q6HRT HHN 09/30/19 13:00 10/04/19 12:59 10/01/19 01:31 Ceftolozane/ Tazobactam 0.45 gm/Sodium Chloride 110 ml @ 110 mls/hr Q8H IV 09/28/19 20:00 10/05/19 19:59 10/01/19 05:10 Chlorhexidine Gluconate (Ling-Hex 2%) 1 applic DAILY@2000 TOPIC 09/23/19 20:00 12/22/19 19:59 09/30/19 21:30 Diltiazem HCl (Cardizem Tab) 30 mg EVERY 8 HOURS GT 09/25/19 14:00 10/15/19 11:59 10/01/19 05:13 Docusate Sodium (Colace) 100 mg Q8H GT 09/29/19 08:30 10/29/19 08:29 10/01/19 00:44 Epoetin Gelacio (Epoetin Gelacio(ESRD on dialysis)) 10,000 unit MON-MON-MON SUBQ 09/25/19 21:00 12/24/19 20:59 09/30/19 21:34 Fentanyl Citrate 250 ml @ 0 mls/hr Q24H IV 09/29/19 10:00 10/01/19 09:59 09/30/19 22:22 Gentamicin Protocol (Gentamicin pharmacy to dose) 1 ea DAILY PRN MISC Per rx protocol 09/28/19 13:15 10/28/19 13:14 Heparin Sodium (Porcine) (Heparin 5000 units/ml) 5,000 units EVERY 12 HOURS SUBQ 09/17/19 21:00 10/30/19 08:59 09/30/19 21:33 Hydralazine HCl (Apresoline) 10 mg Q4H PRN IV BP over 160 systolic 09/17/19 11:15 12/14/19 11:14 09/24/19 15:55 Hydralazine HCl (Apresoline) 50 mg Q6HR GT 09/26/19 18:00 12/15/19 17:59 10/01/19 05:11 Lansoprazole (Prevacid) 30 mg Q12HR GT 09/27/19 21:00 10/27/19 20:59 09/30/19 21:31 Metoclopramide HCl (Reglan) 10 mg Q8H IVP 09/29/19 14:00 10/29/19 13:59 10/01/19 05:14 Metoprolol Tartrate (Lopressor) 25 mg EVERY 12 HOURS GT 09/25/19 21:00 12/14/19 20:59 09/30/19 21:31 Midazolam HCl (Versed 2mg/2ml vial) 1 mg Q4H PRN IVP For Anxiety 09/21/19 09:30 12/20/19 09:29 09/27/19 08:57 Midazolam HCl 50 mg/Sodium Chloride 100 ml @ 0 mls/hr Q24H PRN IV Agitation 09/29/19 20:00 10/01/19 18:49 10/01/19 01:30 Olanzapine (ZyPREXA) 2.5 mg DAILY GT 09/18/19 09:00 10/30/19 08:59 09/30/19 09:03 Sertraline HCl (Zoloft) 100 mg BEDTIME GT 09/17/19 21:00 10/15/19 20:59 09/30/19 21:34 Sorbitol (sorbitoL) 30 ml EVERY 6 HOURS PRN GT Constipation 09/29/19 18:00 10/29/19 17:59 10/01/19 00:44 Tramadol HCl (Ultram) 25 mg Q6HR GT 09/27/19 09:45 10/04/19 09:44 10/01/19 05:11 Last 24 Hour Vital Signs Date Time Temp Pulse Resp B/P (MAP) Pulse Ox O2 Delivery O2 Flow Rate FiO2 10/01/19 06:15 67 19 151/61 (91) 93 10/01/19 06:00 63 20 138/52 (80) 93 10/01/19 06:00 20 Mechanical Ventilator 70 10/01/19 06:00 20 155/60 Mechanical Ventilator 70 10/01/19 05:41 98.7 10/01/19 05:31 70 10/01/19 05:30 69 19 151/64 (93) 94 10/01/19 05:13 60 139/56 10/01/19 05:11 139/56 10/01/19 05:00 20 Mechanical Ventilator 65 10/01/19 05:00 20 151/62 Mechanical Ventilator 70 10/01/19 05:00 62 19 151/62 (91) 96 10/01/19 04:47 58 20 70 10/01/19 04:30 57 20 123/49 (73) 92 10/01/19 04:00 65 10/01/19 04:00 20 Mechanical Ventilator 65 10/01/19 04:00 20 144/53 Mechanical Ventilator 60 10/01/19 04:00 60 10/01/19 04:00 98.4 57 20 144/53 (83) 95 10/01/19 04:00 Mechanical Ventilator Mechanical Ventilator 10/01/19 03:30 57 20 142/52 (82) 95 10/01/19 03:30 58 20 60 10/01/19 03:00 58 20 143/55 (84) 91 10/01/19 03:00 20 Mechanical Ventilator 60 10/01/19 03:00 20 143/55 Mechanical Ventilator 60 10/01/19 02:30 58 20 143/52 (82) 91 10/01/19 02:00 60 20 162/56 (91) 95 10/01/19 02:00 20 Mechanical Ventilator 60 10/01/19 02:00 20 162/56 Mechanical Ventilator 60 10/01/19 01:32 60 21 100 Mechanical Ventilator 60 63 20 60 10/01/19 01:30 20 Mechanical Ventilator 10.0 60 10/01/19 01:30 61 20 139/56 (83) 96 10/01/19 01:00 20 Mechanical Ventilator 60 10/01/19 01:00 20 148/55 Mechanical Ventilator 60 10/01/19 01:00 60 18 148/55 (86) 95 10/01/19 00:30 60 21 128/54 (78) 94 10/01/19 00:24 148/66 10/01/19 00:00 65 10/01/19 00:00 Mechanical Ventilator Mechanical Ventilator 10/01/19 00:00 98.2 60 20 141/58 (85) 94 10/01/19 00:00 20 Mechanical Ventilator 60 10/01/19 00:00 20 141/59 Mechanical Ventilator 60 09/30/19 23:30 64 20 148/66 (93) 97 09/30/19 23:02 61 20 60 09/30/19 23:00 20 Mechanical Ventilator 60 09/30/19 23:00 20 142/60 Mechanical Ventilator 60 09/30/19 23:00 61 20 152/60 (90) 96 09/30/19 22:30 66 19 140/57 (84) 95 09/30/19 22:22 20 139/58 Mechanical Ventilator 10.0 60 09/30/19 22:00 67 20 136/54 (81) 96 09/30/19 22:00 20 Mechanical Ventilator 60 09/30/19 22:00 20 144/57 Mechanical Ventilator 60 09/30/19 21:31 68 139/58 09/30/19 21:31 68 139/58 09/30/19 21:30 65 20 153/58 (89) 96 09/30/19 21:00 20 Mechanical Ventilator 60 09/30/19 21:00 20 157/59 Mechanical Ventilator 60 09/30/19 21:00 66 20 156/57 (90) 95 09/30/19 20:52 68 20 60 09/30/19 20:30 67 20 159/64 (95) 94 09/30/19 20:00 98.7 77 19 163/58 (93) 98 09/30/19 20:00 Mechanical Ventilator Mechanical Ventilator 09/30/19 20:00 20 Mechanical Ventilator 60 09/30/19 20:00 20 145/63 Mechanical Ventilator 60 09/30/19 20:00 72 09/30/19 20:00 60 09/30/19 19:45 70 20 100 Mechanical Ventilator 60 71 20 60 09/30/19 19:00 78 22 139/58 (85) 97 09/30/19 19:00 22 Mechanical Ventilator 60 09/30/19 19:00 22 139/58 Mechanical Ventilator 60 09/30/19 18:30 75 18 172/62 (98) 98 09/30/19 18:19 181/59 09/30/19 18:00 21 Mechanical Ventilator 60 09/30/19 18:00 21 181/59 Mechanical Ventilator 60 09/30/19 18:00 70 21 181/59 (99) 100 09/30/19 17:45 71 21 182/69 (106) 100 09/30/19 17:30 67 20 169/72 (104) 99 09/30/19 17:12 68 20 90 09/30/19 17:00 20 Mechanical Ventilator 60 09/30/19 17:00 20 184/81 Mechanical Ventilator 60 09/30/19 17:00 69 20 184/81 (115) 100 09/30/19 16:30 67 20 164/67 (99) 97 09/30/19 16:00 Mechanical Ventilator Mechanical Ventilator 09/30/19 16:00 68 20 134/64 (87) 97 09/30/19 16:00 20 Mechanical Ventilator 60 09/30/19 16:00 20 134/64 Mechanical Ventilator 60 09/30/19 16:00 60 09/30/19 15:33 79 21 90 09/30/19 15:23 72 09/30/19 15:15 75 19 151/64 (93) 95 09/30/19 15:01 22 Mechanical Ventilator 60 09/30/19 15:00 22 168/71 Mechanical Ventilator 60 09/30/19 15:00 77 22 168/71 (103) 93 09/30/19 14:30 60 09/30/19 14:30 80 21 166/67 (100) 94 09/30/19 14:00 71 21 168/64 (98) 100 09/30/19 14:00 21 168/64 Mechanical Ventilator 90 09/30/19 13:36 71 22 99 Mechanical Ventilator 90 74 22 90 09/30/19 13:30 70 21 156/68 (97) 97 09/30/19 13:30 21 Mechanical Ventilator 90 09/30/19 13:00 20 Mechanical Ventilator 90 09/30/19 13:00 20 157/66 Mechanical Ventilator 90 09/30/19 13:00 70 20 157/66 (96) 98 09/30/19 12:45 73 24 173/78 (109) 97 09/30/19 12:30 71 09/30/19 12:30 69 20 148/62 (90) 98 09/30/19 12:15 69 20 144/62 (89) 98 09/30/19 12:00 98.9 70 20 155/62 (93) 98 09/30/19 12:00 20 Mechanical Ventilator 90 09/30/19 12:00 20 155/62 Mechanical Ventilator 90 09/30/19 12:00 Mechanical Ventilator Mechanical Ventilator 09/30/19 11:58 70 09/30/19 11:45 76 23 164/65 (98) 98 09/30/19 11:30 71 21 153/68 (96) 98 09/30/19 11:15 68 21 154/63 (93) 98 09/30/19 11:05 70 21 70 09/30/19 11:00 68 20 157/66 (96) 99 09/30/19 11:00 20 Mechanical Ventilator 90 09/30/19 11:00 20 157/66 Mechanical Ventilator 90 09/30/19 10:30 70 21 158/65 (96) 99 09/30/19 10:01 19 165/79 Mechanical Ventilator 90 09/30/19 10:00 22 Mechanical Ventilator 70 09/30/19 10:00 22 160/68 Mechanical Ventilator 90 09/30/19 10:00 73 22 160/68 (98) 100 09/30/19 09:20 90 09/30/19 09:19 76 23 70 09/30/19 09:00 30 Mechanical Ventilator 70 09/30/19 09:00 30 163/65 Mechanical Ventilator 70 09/30/19 09:00 81 30 163/65 (97) 93 09/30/19 08:30 80 26 155/63 (93) 92 09/30/19 08:00 Mechanical Ventilator Mechanical Ventilator 09/30/19 08:00 22 Mechanical Ventilator 70 09/30/19 08:00 22 150/74 Mechanical Ventilator 70 09/30/19 08:00 99.1 74 22 150/74 (99) 92 09/30/19 08:00 70 09/30/19 07:51 77 09/30/19 07:30 73 28 154/62 (92) 92 09/30/19 07:17 89 26 70 09/30/19 07:00 77 21 150/60 (90) 93 09/30/19 07:00 20 Mechanical Ventilator 70 09/30/19 07:00 20 150/60 Mechanical Ventilator 70 09/30/19 06:30 70 09/30/19 06:30 79 23 148/57 (87) 92 09/30/19 06:00 84 27 153/62 (92) 90 09/30/19 06:00 20 Mechanical Ventilator 80 09/30/19 06:00 20 153/62 Mechanical Ventilator 80 09/30/19 05:30 86 21 178/81 (113) 97 09/30/19 05:24 154/61 09/30/19 05:24 68 154/61 09/30/19 05:00 64 20 148/60 (89) 98 09/30/19 05:00 20 Mechanical Ventilator 80 09/30/19 05:00 21 148/60 Mechanical Ventilator 80 09/30/19 04:55 87 25 80 09/30/19 04:30 64 20 139/55 (83) 97 09/30/19 04:00 68 09/30/19 04:00 80 09/30/19 04:00 20 Mechanical Ventilator 80 09/30/19 04:00 20 143/56 Mechanical Ventilator 80 09/30/19 04:00 Mechanical Ventilator Mechanical Ventilator 09/30/19 04:00 98.5 63 20 143/56 (85) 92 09/30/19 03:11 68 22 80 09/30/19 03:00 71 20 155/69 (97) 89 09/30/19 03:00 20 Mechanical Ventilator 80 09/30/19 03:00 20 154/61 Mechanical Ventilator 80 09/30/19 02:30 70 20 151/62 (91) 97 09/30/19 02:00 71 21 150/57 (88) 98 09/30/19 02:00 20 Mechanical Ventilator 80 09/30/19 02:00 20 150/57 Mechanical Ventilator 80 09/30/19 01:39 20 Mechanical Ventilator 10.0 80 09/30/19 01:38 20 Mechanical Ventilator 80 09/30/19 01:30 60 21 166/75 (105) 95 09/30/19 01:17 114/54 09/30/19 01:00 20 Mechanical Ventilator 80 09/30/19 01:00 22 114/54 Mechanical Ventilator 80 09/30/19 01:00 60 20 156/66 (96) 95 09/30/19 00:55 76 20 80 09/30/19 00:30 61 20 140/54 (82) 95 09/30/19 00:00 80 09/30/19 00:00 Mechanical Ventilator Mechanical Ventilator 09/30/19 00:00 20 Mechanical Ventilator 80 09/30/19 00:00 20 140/54 Mechanical Ventilator 80 09/30/19 00:00 71 09/30/19 00:00 98.4 60 20 148/57 (87) 96 09/29/19 23:30 62 20 132/53 (79) 96 09/29/19 23:18 63 20 80 09/29/19 23:00 20 Mechanical Ventilator 80 09/29/19 23:00 64 19 150/57 (88) 98 09/29/19 22:57 20 143/55 Mechanical Ventilator 10.0 80 09/29/19 22:30 65 20 143/55 (84) 97 09/29/19 22:00 69 18 158/66 (96) 99 09/29/19 22:00 20 Mechanical Ventilator 80 09/29/19 21:48 63 130/51 09/29/19 21:32 63 20 100 Mechanical Ventilator 80 62 20 80 09/29/19 21:30 60 20 156/61 (92) 99 09/29/19 21:00 62 20 130/51 (77) 98 09/29/19 21:00 20 Mechanical Ventilator 80 09/29/19 21:00 20 156/61 Mechanical Ventilator 80 09/29/19 20:07 62 154/59 09/29/19 20:04 20 Mechanical Ventilator 10.0 80 09/29/19 20:00 68 09/29/19 20:00 98.6 63 20 154/59 (90) 98 09/29/19 20:00 20 130/51 Mechanical Ventilator 80 09/29/19 20:00 Mechanical Ventilator Mechanical Ventilator 09/29/19 20:00 80 09/29/19 19:40 64 20 80 09/29/19 19:00 17 137/55 Mechanical Ventilator 80 09/29/19 19:00 17 Mechanical Ventilator 80 09/29/19 19:00 66 17 137/55 (82) 98 09/29/19 18:30 69 147/58 (87) 09/29/19 18:00 67 26 141/65 (90) 97 09/29/19 18:00 26 141/65 Mechanical Ventilator 80 09/29/19 18:00 26 Mechanical Ventilator 80 09/29/19 17:30 63 20 139/64 (89) 94 09/29/19 17:27 147/61 09/29/19 17:00 64 24 147/61 (89) 95 09/29/19 17:00 24 147/61 Mechanical Ventilator 80 09/29/19 17:00 24 Mechanical Ventilator 80 09/29/19 17:00 64 20 80 09/29/19 16:30 65 20 130/54 (79) 94 09/29/19 16:00 23 138/59 Mechanical Ventilator 80 09/29/19 16:00 23 Mechanical Ventilator 80 09/29/19 16:00 80 09/29/19 16:00 Mechanical Ventilator Mechanical Ventilator 09/29/19 16:00 98.8 68 23 138/59 (85) 94 09/29/19 15:38 69 23 154/57 (89) 93 09/29/19 15:30 70 09/29/19 15:30 70 26 139/58 (85) 99 09/29/19 15:05 68 20 80 09/29/19 15:00 21 141/69 Mechanical Ventilator 80 09/29/19 15:00 21 Mechanical Ventilator 80 09/29/19 15:00 67 21 141/69 (93) 97 09/29/19 14:30 67 20 144/61 (88) 93 09/29/19 14:00 21 136/57 Mechanical Ventilator 80 09/29/19 14:00 21 Mechanical Ventilator 80 09/29/19 14:00 71 21 136/57 (83) 94 09/29/19 13:33 28 Mechanical Ventilator 80 09/29/19 13:32 75 133/58 09/29/19 13:30 74 21 140/61 (87) 96 09/29/19 13:30 22 Mechanical Ventilator 80 09/29/19 13:00 78 23 80 09/29/19 13:00 28 133/58 Mechanical Ventilator 80 09/29/19 13:00 28 Mechanical Ventilator 80 09/29/19 13:00 75 28 133/58 (83) 95 09/29/19 12:31 130/57 09/29/19 12:30 75 27 128/55 (79) 95 09/29/19 12:12 90 09/29/19 12:00 20 130/57 Mechanical Ventilator 80 09/29/19 12:00 20 Mechanical Ventilator 80 09/29/19 12:00 Mechanical Ventilator Mechanical Ventilator 09/29/19 12:00 80 09/29/19 12:00 98.7 68 20 130/57 (81) 94 09/29/19 11:45 72 20 126/54 (78) 95 09/29/19 11:30 75 21 137/56 (83) 95 09/29/19 11:15 73 20 129/57 (81) 94 09/29/19 11:00 82 24 140/61 (87) 95 09/29/19 11:00 24 140/61 Mechanical Ventilator 80 09/29/19 11:00 24 Mechanical Ventilator 80 09/29/19 10:57 19 154/68 Mechanical Ventilator 80 09/29/19 10:45 81 19 154/68 (96) 95 09/29/19 10:35 66 20 80 09/29/19 10:30 67 20 132/57 (82) 93 09/29/19 10:00 69 23 145/61 (89) 94 09/29/19 10:00 23 Mechanical Ventilator 80 09/29/19 09:37 20 138/51 Mechanical Ventilator 80 09/29/19 09:30 66 20 138/51 (80) 89 09/29/19 09:00 20 Mechanical Ventilator 80 09/29/19 09:00 20 134/48 Mechanical Ventilator 80 09/29/19 09:00 66 20 80 09/29/19 09:00 66 20 134/48 (76) 95 09/29/19 08:46 63 157/63 09/29/19 08:30 63 20 131/50 (77) 94 09/29/19 08:11 59 20 95 Mechanical Ventilator 80 62 20 80 09/29/19 08:04 63 09/29/19 08:00 80 09/29/19 08:00 20 Mechanical Ventilator 80 09/29/19 08:00 20 157/63 Mechanical Ventilator 80 09/29/19 08:00 Mechanical Ventilator Mechanical Ventilator 09/29/19 08:00 99.0 66 20 157/63 (94) 96 09/29/19 07:30 59 20 136/56 (82) 92 09/29/19 07:15 59 20 134/53 (80) 91 Intake and Output 09/30/19 10/01/19 19:00 07:00 Intake Total 952.4 ml 1090 ml Output Total 3250 ml 225 ml Balance -2297.6 ml 865 ml IV Total 457.4 ml 430 ml Tube Feeding 435 ml 480 ml Other 60 ml 180 ml Output Urine Total 250 ml 225 ml Hemodialysis UF 3000 ml Labs Test 09/28/19 07:47 09/29/19 05:01 09/29/19 08:02 09/30/19 05:11 Arterial Blood pH 7.454 (7.350-7.450) 7.431 (7.350-7.450) Arterial Blood Partial Pressure CO2 41.2 mmHg (35.0-45.0) 40.7 mmHg (35.0-45.0) Arterial Blood Partial Pressure O2 69.3 mmHg (75.0-100.0) 72.7 mmHg (75.0-100.0) Arterial Blood HCO3 28.3 mmol/L (22.0-26.0) 26.5 mmol/L (22.0-26.0) Arterial Blood Oxygen Saturation 93.3 % (95-100) 94.0 % (95-100) Arterial Blood Base Excess 4.0 (-2-2) 2.0 (-2-2) Rojas Test Positive Positive White Blood Count 9.3 K/UL (4.8-10.8) 9.6 K/UL (4.8-10.8) Red Blood Count 2.74 M/UL (4.20-5.40) 2.75 M/UL (4.20-5.40) Hemoglobin 8.7 G/DL (12.0-16.0) 8.7 G/DL (12.0-16.0) Hematocrit 26.6 % (37.0-47.0) 27.0 % (37.0-47.0) Mean Corpuscular Volume 97 FL (80-99) 98 FL (80-99) Mean Corpuscular Hemoglobin 31.5 PG (27.0-31.0) 31.8 PG (27.0-31.0) Mean Corpuscular Hemoglobin Concent 32.5 G/DL (32.0-36.0) 32.4 G/DL (32.0-36.0) Red Cell Distribution Width 16.1 % (11.6-14.8) 15.6 % (11.6-14.8) Platelet Count 252 K/UL (150-450) 258 K/UL (150-450) Mean Platelet Volume 6.1 FL (6.5-10.1) 6.1 FL (6.5-10.1) Neutrophils (%) (Auto) 74.3 % (45.0-75.0) 79.3 % (45.0-75.0) Lymphocytes (%) (Auto) 15.6 % (20.0-45.0) 13.6 % (20.0-45.0) Monocytes (%) (Auto) 3.8 % (1.0-10.0) 4.6 % (1.0-10.0) Eosinophils (%) (Auto) 5.7 % (0.0-3.0) 2.0 % (0.0-3.0) Basophils (%) (Auto) 0.5 % (0.0-2.0) 0.5 % (0.0-2.0) Sodium Level 141 MMOL/L (136-145) 142 MMOL/L (136-145) Potassium Level 3.4 MMOL/L (3.5-5.1) 3.9 MMOL/L (3.5-5.1) Chloride Level 101 MMOL/L (98-107) 104 MMOL/L (98-107) Carbon Dioxide Level 26 MMOL/L (21-32) 30 MMOL/L (21-32) Blood Urea Nitrogen 76 mg/dL (7-18) 78 mg/dL (7-18) Creatinine 2.5 MG/DL (0.55-1.30) 2.6 MG/DL (0.55-1.30) Estimat Glomerular Filtration Rate 20.6 mL/min (>60) 19.7 mL/min (>60) Glucose Level 64 MG/DL (74-106) 74 MG/DL (74-106) Uric Acid 2.4 MG/DL (2.6-7.2) Calcium Level 8.9 MG/DL (8.5-10.1) 8.7 MG/DL (8.5-10.1) Phosphorus Level 3.2 MG/DL (2.5-4.9) 5.2 MG/DL (2.5-4.9) Magnesium Level 1.8 MG/DL (1.8-2.4) 2.5 MG/DL (1.8-2.4) Total Bilirubin 0.3 MG/DL (0.2-1.0) 0.3 MG/DL (0.2-1.0) Gamma Glutamyl Transpeptidase 84 U/L (5-85) Aspartate Amino Transf (AST/SGOT) 22 U/L (15-37) 21 U/L (15-37) Alanine Aminotransferase (ALT/SGPT) 7 U/L (12-78) 12 U/L (12-78) Alkaline Phosphatase 143 U/L (46-116) 139 U/L (46-116) Total Creatine Kinase 17 U/L (26-308) Total Protein 6.3 G/DL (6.4-8.2) 6.4 G/DL (6.4-8.2) Albumin 1.8 G/DL (3.4-5.0) 1.7 G/DL (3.4-5.0) Globulin 4.5 g/dL 4.7 g/dL Albumin/Globulin Ratio 0.4 (1.0-2.7) 0.4 (1.0-2.7) Random Gentamicin Level 2.0 ug/mL Random Vancomycin Level 16.3 ug/mL 21.7 ug/mL Anion Gap 8 mmol/L (5-15) C-Reactive Protein, Quantitative 16.7 mg/dL (0.00-0.90) Pro-B-Type Natriuretic Peptide > 91238 pg/mL (0-125) Test 09/30/19 08:24 10/01/19 05:00 Arterial Blood pH 7.383 (7.350-7.450) Arterial Blood Partial Pressure CO2 44.8 mmHg (35.0-45.0) Arterial Blood Partial Pressure O2 54.0 mmHg (75.0-100.0) Arterial Blood HCO3 26.1 mmol/L (22.0-26.0) Arterial Blood Oxygen Saturation 86.8 % (95-100) Arterial Blood Base Excess 0.8 (-2-2) Rojas Test Positive White Blood Count 7.4 K/UL (4.8-10.8) Red Blood Count 2.92 M/UL (4.20-5.40) Hemoglobin 9.1 G/DL (12.0-16.0) Hematocrit 28.3 % (37.0-47.0) Mean Corpuscular Volume 97 FL (80-99) Mean Corpuscular Hemoglobin 31.3 PG (27.0-31.0) Mean Corpuscular Hemoglobin Concent 32.3 G/DL (32.0-36.0) Red Cell Distribution Width 15.6 % (11.6-14.8) Platelet Count 287 K/UL (150-450) Mean Platelet Volume 5.9 FL (6.5-10.1) Neutrophils (%) (Auto) 74.7 % (45.0-75.0) Lymphocytes (%) (Auto) 19.3 % (20.0-45.0) Monocytes (%) (Auto) 5.0 % (1.0-10.0) Eosinophils (%) (Auto) 0.4 % (0.0-3.0) Basophils (%) (Auto) 0.6 % (0.0-2.0) Height (Feet): 5 Height (Inches): 5.00 Weight (Pounds): 133 Objective Physical Exam: Vitals: reviewed General: NAD HEENT: nc, at Neck: supple ++tracn/vent Chest: clear breath sounds bilaterally Cardiovascular: RRR, no s3, s4 Abdomen: soft, nontender, nd +gtube Extremities: no cce, normal range of motion Neuro: alert Evan Muhammad MD Oct 01, 2019 07:01
[2019-10-01] MEDS: fentaNYL 2500mcg/NS 250ml 250 ML IV SCH ×2 (07:22→14:35)
--- NOTE | 2019-10-01 07:33 | Infectious Diseases Prog Note ---
Assessment/Plan 49yo F with: Acute hypoxic resp failure: Now on vent, worsening, FiO2 100% > 80% 09/27 Pneumonia, COVID19 neg x3 - worsening MDR PsA pneumonia 09/29 CXR: Bilateral edema versus infiltrates appears slightly worse than on the prior study. There is probably some pleural fluid on the left. 09/26 S/P thoracentesis, 900cc removed, only 67 WBC in fluid analysis, unlikely empyema 09/26 CXR: Worsening R perihilar opacity 09/26 BCx NTD 09/24 CXR: Previously demonstrated right lateral basilar lucency is no longer evident, was presumably a skin fold artifact. Bilateral infiltrates and left pleural effusion are probably unchanged allowing for slight differences in technique. 09/22 Resp cx + MDR PsA (S-gent; I-colistin; R-levofloxacin, Zosyn, angelo) 09/22 BCx NTD 09/22 CXR: worsening BL pna 09/22 UA w/ persistent pyuria, now on HD, UCx +VRE, most likely colonizer as improving wo tx for this 09/19 V/Q scan, low probability of PE 09/18 Rapid COVID PCR neg 09/18 CT chest: Markedly suboptimal examination due to lack of IV contrast material. Bilateral pleural effusions, right greater than left, with bilateral lower lobe consolidation or volume loss. Ground glass densities in the upper lobes bilaterally. This is not specific. Tracheostomy. Increased superior mediastinal density. Stability of adenopathy cannot be excluded. Atherosclerotic change. Gastrostomy. Ascites. Left renal stent with left hydronephrosis and renal atrophy. 09/17 Chest US: Trace right and small left pleural effusions. No safe window identified for bedside thoracentesis. Note that the majority of the left pleural effusion is subpulmonic. 09/16 CXR: Worsening of right lung infiltrates and right effusion. V. duplex: NO DVT D-dimer elevated 09/15 Rapid COVID PCR neg 09/15 Sp cx ESBL P. mirablis 09/14 CXR: Bilateral airspace opacities, preferentially involving the right lung, consistent with multifocal infiltrate. Trace bilateral pleural effusions. No pneumothorax. Rapid COVID PCR neg GPC bacteremia, real vs contaminant; does have hx of infected PPM- could be a possibility- ro endocarditis 09/14 Bcx / S. epidermis; 09/15 Bcx NTD 2d echo: no vegetations seen UTI 09/14 u/a wbc tnct, nit neg, leuk +3; ucx >100k MDR P. stuarti (S Ceftriaxone, Meropenem) 09/22 UA w/ ongoing pyuria, unchanged Unstageable sacral ulceration Afebrile Leukocytosis, mild; fluctuates bt 12-13 JAVIER on CKD --> now on HD Renal US: Limited exam due to abdominal ascites and shadowing from bowel gas. CT recommended for more sensitive evaluation. Moderate right hydronephrosis. Increased renal parenchymal echogenicity suggesting intrinsic/ medical renal disease. Question indwelling left ureteral stent versus artifact. Bladder not visualized. 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 epi-11/2018, sp > 6weeks IV vancomycin 11/27 SP ABBIE: no evidence for vegetation on any of the valves 11/26/18 SP PPM removal: OR findings:The fibrous capsule enclosing the generator was then opened and there was a [id number] amount of yellowish fluid drainage. The generator was then removed.Atrial and ventricular leads were detached. The necrotic tissue of the pocket was then removed and the pocket was flushed with an antibiotic solution. Capsule, wound tissue and lead tip cx: Neg 2d echo: no vegetation seen US chest: 4.6 x 3.4 x 0.9 cm hypoechoic/anechoic area overlying left chest pacemaker power pack. This could represent either a discrete fluid collection or a focal area of very edematous tissue. Infected fluid pocket also possible. 11/18 Bcx 3/4 S. epi; 11/20 Bcx neg; 11/24 Bcx Neg; 11/27 Bcx Neg Hx of PNA 11/2019? sp cx PsA (arnett S), ABC (I Ceftriaxone; otherwise negative) Sp cx MRSA, ABC (I Ceftriaxone; otherwise S) PMH: Afib HTN Dysphagia sp GT Aortic dissection s/p repair 2017, S/p PPM Parkinson's Disease Schizophrenia Anxiety COPD Chronic resp failure s/p trach Hx of tracheal bleeding [place] resident ([facility]) Plan: Cont Zerbaxa #4/-10 for MDR PsA pneumonia Cont gentamicin per pharmacy #5 for now as improved and awaiting sensitivities for Zerbaxa Trend resp status, leukocytosis D/w micro about sending MDR PsA out for further sensi to Zerbaxa and Avycaz, misc lab order signed, sent out of Tuesday 09/26 Called micro lab today multiple times but no answer, will try again tomorrow ([phone]) Aggressive volume removal as tolerated by HD, BNP >35,000 09/29 SP vanco #15 for S.epi in BCx 09/27 SP angelo #[phone] SP Cefepime #3, Levaquin #3 Monitor CBC/CMP, temperatures ICU/ trach/ peg care Aspiration precautions D/w RN Thank you for this consultation. Will continue to follow along with you. Subjective Allergies: Coded Allergies: No Known Allergies (Unverified , 10/10/17) AF Remains on vent, FiO2 70% satting well WBC improving to 7 Objective Last 24 Hour Vital Signs Date Time Temp Pulse Resp B/P (MAP) Pulse Ox O2 Delivery O2 Flow Rate FiO2 10/01/19 07:22 20 151/61 Mechanical Ventilator 10.0 70 10/01/19 07:21 20 145/60 Mechanical Ventilator 70 10/01/19 07:03 59 20 97 Mechanical Ventilator 70 62 20 70 10/01/19 07:00 20 Mechanical Ventilator 70 10/01/19 07:00 20 145/59 Mechanical Ventilator 70 10/01/19 06:15 67 19 151/61 (91) 93 10/01/19 06:00 63 20 138/52 (80) 93 10/01/19 06:00 20 Mechanical Ventilator 70 10/01/19 06:00 20 155/60 Mechanical Ventilator 70 10/01/19 05:41 98.7 10/01/19 05:31 70 10/01/19 05:30 69 19 151/64 (93) 94 10/01/19 05:13 60 139/56 10/01/19 05:11 139/56 10/01/19 05:00 20 Mechanical Ventilator 65 10/01/19 05:00 20 151/62 Mechanical Ventilator 70 10/01/19 05:00 62 19 151/62 (91) 96 10/01/19 04:47 58 20 70 10/01/19 04:30 57 20 123/49 (73) 92 10/01/19 04:00 65 10/01/19 04:00 20 Mechanical Ventilator 65 10/01/19 04:00 20 144/53 Mechanical Ventilator 60 10/01/19 04:00 60 10/01/19 04:00 98.4 57 20 144/53 (83) 95 10/01/19 04:00 Mechanical Ventilator Mechanical Ventilator 10/01/19 03:30 57 20 142/52 (82) 95 10/01/19 03:30 58 20 60 10/01/19 03:00 58 20 143/55 (84) 91 10/01/19 03:00 20 Mechanical Ventilator 60 10/01/19 03:00 20 143/55 Mechanical Ventilator 60 10/01/19 02:30 58 20 143/52 (82) 91 10/01/19 02:00 60 20 162/56 (91) 95 10/01/19 02:00 20 Mechanical Ventilator 60 10/01/19 02:00 20 162/56 Mechanical Ventilator 60 10/01/19 01:32 60 21 100 Mechanical Ventilator 60 63 20 60 10/01/19 01:30 20 Mechanical Ventilator 10.0 60 10/01/19 01:30 61 20 139/56 (83) 96 10/01/19 01:00 20 Mechanical Ventilator 60 10/01/19 01:00 20 148/55 Mechanical Ventilator 60 10/01/19 01:00 60 18 148/55 (86) 95 10/01/19 00:30 60 21 128/54 (78) 94 10/01/19 00:24 148/66 10/01/19 00:00 65 10/01/19 00:00 Mechanical Ventilator Mechanical Ventilator 10/01/19 00:00 98.2 60 20 141/58 (85) 94 10/01/19 00:00 20 Mechanical Ventilator 60 10/01/19 00:00 20 141/59 Mechanical Ventilator 60 09/30/19 23:30 64 20 148/66 (93) 97 09/30/19 23:02 61 20 60 09/30/19 23:00 20 Mechanical Ventilator 60 09/30/19 23:00 20 142/60 Mechanical Ventilator 60 09/30/19 23:00 61 20 152/60 (90) 96 09/30/19 22:30 66 19 140/57 (84) 95 09/30/19 22:22 20 139/58 Mechanical Ventilator 10.0 60 09/30/19 22:00 67 20 136/54 (81) 96 09/30/19 22:00 20 Mechanical Ventilator 60 09/30/19 22:00 20 144/57 Mechanical Ventilator 60 09/30/19 21:31 68 139/58 09/30/19 21:31 68 139/58 09/30/19 21:30 65 20 153/58 (89) 96 09/30/19 21:00 20 Mechanical Ventilator 60 09/30/19 21:00 20 157/59 Mechanical Ventilator 60 09/30/19 21:00 66 20 156/57 (90) 95 09/30/19 20:52 68 20 60 09/30/19 20:30 67 20 159/64 (95) 94 09/30/19 20:00 98.7 77 19 163/58 (93) 98 09/30/19 20:00 Mechanical Ventilator Mechanical Ventilator 09/30/19 20:00 20 Mechanical Ventilator 60 09/30/19 20:00 20 145/63 Mechanical Ventilator 60 09/30/19 20:00 72 09/30/19 20:00 60 09/30/19 19:45 70 20 100 Mechanical Ventilator 60 71 20 60 09/30/19 19:00 78 22 139/58 (85) 97 09/30/19 19:00 22 Mechanical Ventilator 60 09/30/19 19:00 22 139/58 Mechanical Ventilator 60 09/30/19 18:30 75 18 172/62 (98) 98 09/30/19 18:19 181/59 09/30/19 18:00 21 Mechanical Ventilator 60 09/30/19 18:00 21 181/59 Mechanical Ventilator 60 09/30/19 18:00 70 21 181/59 (99) 100 09/30/19 17:45 71 21 182/69 (106) 100 09/30/19 17:30 67 20 169/72 (104) 99 09/30/19 17:12 68 20 90 09/30/19 17:00 20 Mechanical Ventilator 60 09/30/19 17:00 20 184/81 Mechanical Ventilator 60 09/30/19 17:00 69 20 184/81 (115) 100 09/30/19 16:30 67 20 164/67 (99) 97 09/30/19 16:00 Mechanical Ventilator Mechanical Ventilator 09/30/19 16:00 68 20 134/64 (87) 97 09/30/19 16:00 20 Mechanical Ventilator 60 09/30/19 16:00 20 134/64 Mechanical Ventilator 60 09/30/19 16:00 60 09/30/19 15:33 79 21 90 09/30/19 15:23 72 09/30/19 15:15 75 19 151/64 (93) 95 09/30/19 15:01 22 Mechanical Ventilator 60 09/30/19 15:00 22 168/71 Mechanical Ventilator 60 09/30/19 15:00 77 22 168/71 (103) 93 09/30/19 14:30 60 09/30/19 14:30 80 21 166/67 (100) 94 09/30/19 14:00 71 21 168/64 (98) 100 09/30/19 14:00 21 168/64 Mechanical Ventilator 90 09/30/19 13:36 71 22 99 Mechanical Ventilator 90 74 22 90 09/30/19 13:30 70 21 156/68 (97) 97 09/30/19 13:30 21 Mechanical Ventilator 90 09/30/19 13:00 20 Mechanical Ventilator 90 09/30/19 13:00 20 157/66 Mechanical Ventilator 90 09/30/19 13:00 70 20 157/66 (96) 98 09/30/19 12:45 73 24 173/78 (109) 97 09/30/19 12:30 71 09/30/19 12:30 69 20 148/62 (90) 98 09/30/19 12:15 69 20 144/62 (89) 98 09/30/19 12:00 98.9 70 20 155/62 (93) 98 09/30/19 12:00 20 Mechanical Ventilator 90 09/30/19 12:00 20 155/62 Mechanical Ventilator 90 09/30/19 12:00 Mechanical Ventilator Mechanical Ventilator 09/30/19 11:58 70 09/30/19 11:45 76 23 164/65 (98) 98 09/30/19 11:30 71 21 153/68 (96) 98 09/30/19 11:15 68 21 154/63 (93) 98 09/30/19 11:05 70 21 70 09/30/19 11:00 68 20 157/66 (96) 99 09/30/19 11:00 20 Mechanical Ventilator 90 09/30/19 11:00 20 157/66 Mechanical Ventilator 90 09/30/19 10:30 70 21 158/65 (96) 99 09/30/19 10:01 19 165/79 Mechanical Ventilator 90 09/30/19 10:00 22 Mechanical Ventilator 70 09/30/19 10:00 22 160/68 Mechanical Ventilator 90 09/30/19 10:00 73 22 160/68 (98) 100 09/30/19 09:20 90 09/30/19 09:19 76 23 70 09/30/19 09:00 30 Mechanical Ventilator 70 09/30/19 09:00 30 163/65 Mechanical Ventilator 70 09/30/19 09:00 81 30 163/65 (97) 93 09/30/19 08:30 80 26 155/63 (93) 92 09/30/19 08:00 Mechanical Ventilator Mechanical Ventilator 09/30/19 08:00 22 Mechanical Ventilator 70 09/30/19 08:00 22 150/74 Mechanical Ventilator 70 09/30/19 08:00 99.1 74 22 150/74 (99) 92 09/30/19 08:00 70 09/30/19 07:51 77 Height (Feet): 5 Height (Inches): 5.00 Weight (Pounds): 133 Gen: Older woman, sedated on vent CV: RRR Pulm: Rhonchi BL anteriorly Abd: Soft, non-distended Ext: No c/c Neuro: Sedated Laboratory Tests Test 09/30/19 08:24 10/01/19 05:00 Arterial Blood pH 7.383 (7.350-7.450) Arterial Blood Partial Pressure CO2 44.8 mmHg (35.0-45.0) Arterial Blood Partial Pressure O2 54.0 mmHg (75.0-100.0) L Arterial Blood HCO3 26.1 mmol/L (22.0-26.0) H Arterial Blood Oxygen Saturation 86.8 % (95-100) *L Arterial Blood Base Excess 0.8 (-2-2) Rojas Test Positive White Blood Count 7.4 K/UL (4.8-10.8) Red Blood Count 2.92 M/UL (4.20-5.40) L Hemoglobin 9.1 G/DL (12.0-16.0) L Hematocrit 28.3 % (37.0-47.0) L Mean Corpuscular Volume 97 FL (80-99) Mean Corpuscular Hemoglobin 31.3 PG (27.0-31.0) H Mean Corpuscular Hemoglobin Concent 32.3 G/DL (32.0-36.0) Red Cell Distribution Width 15.6 % (11.6-14.8) H Platelet Count 287 K/UL (150-450) Mean Platelet Volume 5.9 FL (6.5-10.1) L Neutrophils (%) (Auto) 74.7 % (45.0-75.0) Lymphocytes (%) (Auto) 19.3 % (20.0-45.0) L Monocytes (%) (Auto) 5.0 % (1.0-10.0) Eosinophils (%) (Auto) 0.4 % (0.0-3.0) Basophils (%) (Auto) 0.6 % (0.0-2.0) Sodium Level 138 MMOL/L (136-145) Potassium Level 3.2 MMOL/L (3.5-5.1) L Chloride Level 99 MMOL/L (98-107) Carbon Dioxide Level 29 MMOL/L (21-32) Anion Gap 10 mmol/L (5-15) Blood Urea Nitrogen 50 mg/dL (7-18) H Creatinine 1.9 MG/DL (0.55-1.30) H Estimat Glomerular Filtration Rate 28.3 mL/min (>60) Glucose Level 105 MG/DL (74-106) Calcium Level 8.1 MG/DL (8.5-10.1) L Phosphorus Level 4.0 MG/DL (2.5-4.9) Magnesium Level 2.2 MG/DL (1.8-2.4) Total Bilirubin 0.3 MG/DL (0.2-1.0) Aspartate Amino Transf (AST/SGOT) 13 U/L (15-37) L Alanine Aminotransferase (ALT/SGPT) Pending Alkaline Phosphatase 145 U/L (46-116) H C-Reactive Protein, Quantitative 17.2 mg/dL (0.00-0.90) H Pro-B-Type Natriuretic Peptide > 27428 pg/mL (0-125) H Total Protein 6.7 G/DL (6.4-8.2) Albumin 1.8 G/DL (3.4-5.0) L Globulin 4.9 g/dL Albumin/Globulin Ratio 0.4 (1.0-2.7) L Random Gentamicin Level 0.8 ug/mL Current Medications Medications (Trade) Dose Ordered Sig/Penny Route PRN Reason Start Time Stop Time Status Last Admin Dose Admin Acetaminophen (Tylenol) 325 mg Q6H PRN GT Temp >100.5 09/23/19 10:45 10/23/19 10:44 09/23/19 18:55 Albuterol/ Ipratropium (Albuterol/ Ipratropium) 3 ml Q6HRT HHN 09/30/19 13:00 10/04/19 12:59 10/01/19 07:02 Ceftolozane/ Tazobactam 0.45 gm/Sodium Chloride 110 ml @ 110 mls/hr Q8H IV 09/28/19 20:00 10/05/19 19:59 10/01/19 05:10 Chlorhexidine Gluconate (Ling-Hex 2%) 1 applic DAILY@2000 TOPIC 09/23/19 20:00 12/22/19 19:59 09/30/19 21:30 Diltiazem HCl (Cardizem Tab) 30 mg EVERY 8 HOURS GT 09/25/19 14:00 10/15/19 11:59 10/01/19 05:13 Docusate Sodium (Colace) 100 mg Q8H GT 09/29/19 08:30 10/29/19 08:29 10/01/19 00:44 Epoetin Gelacio (Epoetin Gelacio(ESRD on dialysis)) 10,000 unit MON-MON-MON SUBQ 09/25/19 21:00 12/24/19 20:59 09/30/19 21:34 Fentanyl Citrate 250 ml @ 0 mls/hr Q24H IV 09/29/19 10:00 10/01/19 09:59 10/01/19 07:22 Gentamicin Protocol (Gentamicin pharmacy to dose) 1 ea DAILY PRN MISC Per rx protocol 09/28/19 13:15 10/28/19 13:14 Heparin Sodium (Porcine) (Heparin 5000 units/ml) 5,000 units EVERY 12 HOURS SUBQ 09/17/19 21:00 10/30/19 08:59 09/30/19 21:33 Hydralazine HCl (Apresoline) 10 mg Q4H PRN IV BP over 160 systolic 09/17/19 11:15 12/14/19 11:14 09/24/19 15:55 Hydralazine HCl (Apresoline) 50 mg Q6HR GT 09/26/19 18:00 12/15/19 17:59 10/01/19 05:11 Lansoprazole (Prevacid) 30 mg Q12HR GT 09/27/19 21:00 10/27/19 20:59 09/30/19 21:31 Metoclopramide HCl (Reglan) 10 mg Q8H IVP 09/29/19 14:00 10/29/19 13:59 10/01/19 05:14 Metoprolol Tartrate (Lopressor) 25 mg EVERY 12 HOURS GT 09/25/19 21:00 12/14/19 20:59 09/30/19 21:31 Midazolam HCl (Versed 2mg/2ml vial) 1 mg Q4H PRN IVP For Anxiety 09/21/19 09:30 12/20/19 09:29 09/27/19 08:57 Midazolam HCl 50 mg/Sodium Chloride 100 ml @ 0 mls/hr Q24H PRN IV Agitation 09/29/19 20:00 10/01/19 18:49 10/01/19 01:30 Olanzapine (ZyPREXA) 2.5 mg DAILY GT 09/18/19 09:00 10/30/19 08:59 09/30/19 09:03 Sertraline HCl (Zoloft) 100 mg BEDTIME GT 09/17/19 21:00 10/15/19 20:59 09/30/19 21:34 Sorbitol (sorbitoL) 30 ml EVERY 6 HOURS PRN GT Constipation 09/29/19 18:00 10/29/19 17:59 10/01/19 00:44 Tramadol HCl (Ultram) 25 mg Q6HR GT 09/27/19 09:45 10/04/19 09:44 10/01/19 05:11 Ro Pack M.D. Oct 01, 2019 07:33
[2019-10-01 07:38] LABS: ALANINE AMINOTRANSFERASE 7 U/L (12-78)
[2019-10-01] MEDS: OLANZapine 2.5mg tab GT SCH (08:57)
[2019-10-01] MEDS: Heparin 5000 units/ml inj SUBQ SCH ×2 (09:03→20:39)
--- NOTE | 2019-10-01 09:39 | General Progress Note ---
Assessment/Plan Problem List: (1) S/P aortic dissection repair ICD Codes: Z98.890 - Other specified postprocedural states SNOMED: 687894141, 411802503 (2) Sacral decubitus ulcer, stage IV ICD Codes: L89.154 - Pressure ulcer of sacral region, stage 4 SNOMED: 224195641, 496699770 (3) Anemia ICD Codes: D64.9 - Anemia, unspecified SNOMED: 295968413 (4) GT CLOGGED (5) Feeding by G-tube ICD Codes: Z93.1 - Gastrostomy status SNOMED: 287478778, 832805906 (6) Tracheostomy in place ICD Codes: Z93.0 - Tracheostomy status SNOMED: 220056862 (7) Pacemaker ICD Codes: Z95.0 - Presence of cardiac pacemaker SNOMED: 800531722 (8) Chronic respiratory failure ICD Codes: J96.10 - Chronic respiratory failure, unspecified whether with hypoxia or hypercapnia SNOMED: 47838558 Assessment/Plan: GTF monitor for residuals repeat labs ICU care Subjective ROS Limited/Unobtainable: No Allergies: Coded Allergies: No Known Allergies (Unverified , 10/10/17) Objective Last 24 Hour Vital Signs Date Time Temp Pulse Resp B/P (MAP) Pulse Ox O2 Delivery O2 Flow Rate FiO2 10/01/19 08:57 69 136/54 10/01/19 07:22 20 151/61 Mechanical Ventilator 10.0 70 10/01/19 07:21 20 145/60 Mechanical Ventilator 70 10/01/19 07:03 59 20 97 Mechanical Ventilator 70 62 20 70 10/01/19 07:00 20 Mechanical Ventilator 70 10/01/19 07:00 20 145/59 Mechanical Ventilator 70 10/01/19 06:15 67 19 151/61 (91) 93 10/01/19 06:00 63 20 138/52 (80) 93 10/01/19 06:00 20 Mechanical Ventilator 70 10/01/19 06:00 20 155/60 Mechanical Ventilator 70 10/01/19 05:41 98.7 10/01/19 05:31 70 10/01/19 05:30 69 19 151/64 (93) 94 10/01/19 05:13 60 139/56 10/01/19 05:11 139/56 10/01/19 05:00 20 Mechanical Ventilator 65 10/01/19 05:00 20 151/62 Mechanical Ventilator 70 10/01/19 05:00 62 19 151/62 (91) 96 10/01/19 04:47 58 20 70 10/01/19 04:30 57 20 123/49 (73) 92 10/01/19 04:00 65 10/01/19 04:00 20 Mechanical Ventilator 65 10/01/19 04:00 20 144/53 Mechanical Ventilator 60 10/01/19 04:00 60 10/01/19 04:00 98.4 57 20 144/53 (83) 95 10/01/19 04:00 Mechanical Ventilator Mechanical Ventilator 10/01/19 03:30 57 20 142/52 (82) 95 10/01/19 03:30 58 20 60 10/01/19 03:00 58 20 143/55 (84) 91 10/01/19 03:00 20 Mechanical Ventilator 60 10/01/19 03:00 20 143/55 Mechanical Ventilator 60 10/01/19 02:30 58 20 143/52 (82) 91 10/01/19 02:00 60 20 162/56 (91) 95 10/01/19 02:00 20 Mechanical Ventilator 60 10/01/19 02:00 20 162/56 Mechanical Ventilator 60 10/01/19 01:32 60 21 100 Mechanical Ventilator 60 63 20 60 10/01/19 01:30 20 Mechanical Ventilator 10.0 60 10/01/19 01:30 61 20 139/56 (83) 96 10/01/19 01:00 20 Mechanical Ventilator 60 10/01/19 01:00 20 148/55 Mechanical Ventilator 60 10/01/19 01:00 60 18 148/55 (86) 95 10/01/19 00:30 60 21 128/54 (78) 94 10/01/19 00:24 148/66 10/01/19 00:00 65 10/01/19 00:00 Mechanical Ventilator Mechanical Ventilator 10/01/19 00:00 98.2 60 20 141/58 (85) 94 10/01/19 00:00 20 Mechanical Ventilator 60 10/01/19 00:00 20 141/59 Mechanical Ventilator 60 09/30/19 23:30 64 20 148/66 (93) 97 09/30/19 23:02 61 20 60 09/30/19 23:00 20 Mechanical Ventilator 60 09/30/19 23:00 20 142/60 Mechanical Ventilator 60 09/30/19 23:00 61 20 152/60 (90) 96 09/30/19 22:30 66 19 140/57 (84) 95 09/30/19 22:22 20 139/58 Mechanical Ventilator 10.0 60 09/30/19 22:00 67 20 136/54 (81) 96 09/30/19 22:00 20 Mechanical Ventilator 60 09/30/19 22:00 20 144/57 Mechanical Ventilator 60 09/30/19 21:31 68 139/58 09/30/19 21:31 68 139/58 09/30/19 21:30 65 20 153/58 (89) 96 09/30/19 21:00 20 Mechanical Ventilator 60 09/30/19 21:00 20 157/59 Mechanical Ventilator 60 09/30/19 21:00 66 20 156/57 (90) 95 09/30/19 20:52 68 20 60 09/30/19 20:30 67 20 159/64 (95) 94 09/30/19 20:00 98.7 77 19 163/58 (93) 98 09/30/19 20:00 Mechanical Ventilator Mechanical Ventilator 09/30/19 20:00 20 Mechanical Ventilator 60 09/30/19 20:00 20 145/63 Mechanical Ventilator 60 09/30/19 20:00 72 09/30/19 20:00 60 09/30/19 19:45 70 20 100 Mechanical Ventilator 60 71 20 60 09/30/19 19:00 78 22 139/58 (85) 97 09/30/19 19:00 22 Mechanical Ventilator 60 09/30/19 19:00 22 139/58 Mechanical Ventilator 60 09/30/19 18:30 75 18 172/62 (98) 98 09/30/19 18:19 181/59 09/30/19 18:00 21 Mechanical Ventilator 60 09/30/19 18:00 21 181/59 Mechanical Ventilator 60 09/30/19 18:00 70 21 181/59 (99) 100 09/30/19 17:45 71 21 182/69 (106) 100 09/30/19 17:30 67 20 169/72 (104) 99 09/30/19 17:12 68 20 90 09/30/19 17:00 20 Mechanical Ventilator 60 09/30/19 17:00 20 184/81 Mechanical Ventilator 60 09/30/19 17:00 69 20 184/81 (115) 100 09/30/19 16:30 67 20 164/67 (99) 97 09/30/19 16:00 Mechanical Ventilator Mechanical Ventilator 09/30/19 16:00 68 20 134/64 (87) 97 09/30/19 16:00 20 Mechanical Ventilator 60 09/30/19 16:00 20 134/64 Mechanical Ventilator 60 09/30/19 16:00 60 09/30/19 15:33 79 21 90 09/30/19 15:23 72 09/30/19 15:15 75 19 151/64 (93) 95 09/30/19 15:01 22 Mechanical Ventilator 60 09/30/19 15:00 22 168/71 Mechanical Ventilator 60 09/30/19 15:00 77 22 168/71 (103) 93 09/30/19 14:30 60 09/30/19 14:30 80 21 166/67 (100) 94 09/30/19 14:00 71 21 168/64 (98) 100 09/30/19 14:00 21 168/64 Mechanical Ventilator 90 09/30/19 13:36 71 22 99 Mechanical Ventilator 90 74 22 90 09/30/19 13:30 70 21 156/68 (97) 97 09/30/19 13:30 21 Mechanical Ventilator 90 09/30/19 13:00 20 Mechanical Ventilator 90 09/30/19 13:00 20 157/66 Mechanical Ventilator 90 09/30/19 13:00 70 20 157/66 (96) 98 09/30/19 12:45 73 24 173/78 (109) 97 09/30/19 12:30 71 09/30/19 12:30 69 20 148/62 (90) 98 09/30/19 12:15 69 20 144/62 (89) 98 09/30/19 12:00 98.9 70 20 155/62 (93) 98 09/30/19 12:00 20 Mechanical Ventilator 90 09/30/19 12:00 20 155/62 Mechanical Ventilator 90 09/30/19 12:00 Mechanical Ventilator Mechanical Ventilator 09/30/19 11:58 70 09/30/19 11:45 76 23 164/65 (98) 98 09/30/19 11:30 71 21 153/68 (96) 98 09/30/19 11:15 68 21 154/63 (93) 98 09/30/19 11:05 70 21 70 09/30/19 11:00 68 20 157/66 (96) 99 09/30/19 11:00 20 Mechanical Ventilator 90 09/30/19 11:00 20 157/66 Mechanical Ventilator 90 09/30/19 10:30 70 21 158/65 (96) 99 09/30/19 10:01 19 165/79 Mechanical Ventilator 90 09/30/19 10:00 22 Mechanical Ventilator 70 09/30/19 10:00 22 160/68 Mechanical Ventilator 90 09/30/19 10:00 73 22 160/68 (98) 100 Intake and Output 09/30/19 10/01/19 19:00 07:00 Intake Total 952.4 ml 1160 ml Output Total 3250 ml 235 ml Balance -2297.6 ml 925 ml IV Total 457.4 ml 460 ml Tube Feeding 435 ml 520 ml Other 60 ml 180 ml Output Urine Total 250 ml 235 ml Hemodialysis UF 3000 ml Laboratory Tests 10/01/19 05:00: White Blood Count 7.4, Red Blood Count 2.92L, Hemoglobin 9.1L, Hematocrit 28.3L , Mean Corpuscular Volume 97, Mean Corpuscular Hemoglobin 31.3H, Mean Corpuscular Hemoglobin Concent 32.3, Red Cell Distribution Width 15.6H, Platelet Count 287, Mean Platelet Volume 5.9L, Neutrophils (%) (Auto) 74.7, Lymphocytes (%) (Auto) 19.3L, Monocytes (%) (Auto) 5.0, Eosinophils (%) (Auto) 0.4, Basophils (%) (Auto) 0.6, Sodium Level 138, Potassium Level 3.2L, Chloride Level 99, Carbon Dioxide Level 29, Anion Gap 10, Blood Urea Nitrogen 50H, Creatinine 1.9H, Estimat Glomerular Filtration Rate 28.3, Glucose Level 105, Calcium Level 8.1L, Phosphorus Level 4.0, Magnesium Level 2.2, Total Bilirubin 0.3, Aspartate Amino Transf (AST/SGOT) 13L, Alanine Aminotransferase (ALT/SGPT) 7L, Alkaline Phosphatase 145H, C-Reactive Protein, Quantitative 17.2H, Pro-B- Type Natriuretic Peptide > 28776D, Total Protein 6.7, Albumin 1.8L, Globulin 4.9 , Albumin/Globulin Ratio 0.4L, Random Gentamicin Level 0.8 10/01/19 07:07: Arterial Blood pH 7.470H, Arterial Blood Partial Pressure CO2 40.4, Arterial Blood Partial Pressure O2 68.4L, Arterial Blood HCO3 28.7H, Arterial Blood Oxygen Saturation 93.8L, Arterial Blood Base Excess 4.7H, Orjas Test Positive Height (Feet): 5 Height (Inches): 5.00 Weight (Pounds): 133 General Appearance: no apparent distress EENT: normal ENT inspection Neck: supple Cardiovascular: tachycardia Respiratory/Chest: decreased breath sounds Abdomen: hypoactive bowel sounds Extremities: non-tender Inder Mccauley MD Oct 01, 2019 09:39
--- NOTE | 2019-10-01 10:09 | Pulmonolgy Critical Care Note ---
MatthewYara SHOVEL MECHANIC 10/01/19 1009: Critical Care - Asmt/Plan Assessment/Plan: ASSESSMENT Acute on chronic hypoxemic respiratory failure ( trach dependent), now on vent Tracheostomy status, s/p change to cuffed trach Sepsis Pulmonary edema Pleural effusion -worsening left pl effusion s/p thoracentesis L pleural effusion 09/26 -900 ml Pneumonia with MDR Pseudomonas UTI CHF ? cardiorenal COPD Acute kidney injury and chronic kidney disease-requiring start of HD Hypertension Atrial fibrillation Moderate pulm HTN Moderate AR Dysphagia , feeding by G-tube Electrolyte abnormalities Anemia Toxic metabolic encephalopathy likely due to sepsis and ARF HTN PAF PLAN OF CARE ICU on vent AC trach changed 8/4 pm from uncuffed to cuffed Shiley#[address] chest w/out contrast: - Bilateral pleural effusions, right greater than left, with bilateral lower lobe consolidation or volume loss. -Ground-glass densities in the upper lobes bilaterally. This is not specific. -Tracheostomy. -Increased superior mediastinal density. Stability of adenopathy cannot be excluded. -Atherosclerotic change. -Gastrostomy. -Ascites. -Left renal stent with left hydronephrosis and renal atrophy. VQ scan -> low probability for PE worsening resp status was due to need for HD, now after HD started, resp status improving, down to PEEP 5 and AC 20 trach care , pulmonary toilet ABG this am no hypoxia, titrate Fio2 to keep sat above 92% fup with ABG and CXR in am Mucomyst was dc given lots of thin secretions, continue Duoneb prn rapid COVID 19 NGT x3 sedation with fentanyl gtt and Versed prn-> on weaning from Fentanyl as tolerated s/p thoracentesis L pleural effusion 09/26 am -> 900 ml fluid analysis noted, fup with fluid cx and cytology ( apparently never sent despite orders) aspiration precautions venous Duplex BLE -> NGT DVT prophylaxis pulm toilet, abx as per ID- s/p gent x 1, now on Vanco and Zerbaxa SCX 8/3 + Proteus, SCX 8/10 Pseudomonas MDR UCX 8/2 + Providencia , UCX 8/10 VRE 10-20 K only BCX 8/2 Staph epidermidis, BCX 8/3 NGT , BCX 8/ and 09/26 - NGTD monitor volumes was on gentle IVF-> dc s/p prior diuretic-Lasix require initiation of HD close monitoring of volumes, renal parameters and lytes -per nephro recs ECHO with pEF , moderate pulm HTN and moderate AR BP management with current regimen of BB, Cardizem and Hydralazine, remains in SR monitor HH with goal to keep Hgb >7, heme on board on EPO supportive care pain management wound care bowel regimen thank you for a consult Critical Care - Objective Last 24 Hour Vital Signs Date Time Temp Pulse Resp B/P (MAP) Pulse Ox O2 Delivery O2 Flow Rate FiO2 10/01/19 08:57 69 136/54 10/01/19 07:22 20 151/61 Mechanical Ventilator 10.0 70 10/01/19 07:21 20 145/60 Mechanical Ventilator 70 10/01/19 07:03 59 20 97 Mechanical Ventilator 70 62 20 70 10/01/19 07:00 20 Mechanical Ventilator 70 10/01/19 07:00 20 145/59 Mechanical Ventilator 70 10/01/19 06:15 67 19 151/61 (91) 93 10/01/19 06:00 63 20 138/52 (80) 93 10/01/19 06:00 20 Mechanical Ventilator 70 10/01/19 06:00 20 155/60 Mechanical Ventilator 70 10/01/19 05:41 98.7 10/01/19 05:31 70 10/01/19 05:30 69 19 151/64 (93) 94 10/01/19 05:13 60 139/56 10/01/19 05:11 139/56 10/01/19 05:00 20 Mechanical Ventilator 65 10/01/19 05:00 20 151/62 Mechanical Ventilator 70 10/01/19 05:00 62 19 151/62 (91) 96 10/01/19 04:47 58 20 70 10/01/19 04:30 57 20 123/49 (73) 92 10/01/19 04:00 65 10/01/19 04:00 20 Mechanical Ventilator 65 10/01/19 04:00 20 144/53 Mechanical Ventilator 60 10/01/19 04:00 60 10/01/19 04:00 98.4 57 20 144/53 (83) 95 10/01/19 04:00 Mechanical Ventilator Mechanical Ventilator 10/01/19 03:30 57 20 142/52 (82) 95 10/01/19 03:30 58 20 60 10/01/19 03:00 58 20 143/55 (84) 91 10/01/19 03:00 20 Mechanical Ventilator 60 10/01/19 03:00 20 143/55 Mechanical Ventilator 60 10/01/19 02:30 58 20 143/52 (82) 91 10/01/19 02:00 60 20 162/56 (91) 95 10/01/19 02:00 20 Mechanical Ventilator 60 10/01/19 02:00 20 162/56 Mechanical Ventilator 60 10/01/19 01:32 60 21 100 Mechanical Ventilator 60 63 20 60 10/01/19 01:30 20 Mechanical Ventilator 10.0 60 10/01/19 01:30 61 20 139/56 (83) 96 10/01/19 01:00 20 Mechanical Ventilator 60 10/01/19 01:00 20 148/55 Mechanical Ventilator 60 10/01/19 01:00 60 18 148/55 (86) 95 10/01/19 00:30 60 21 128/54 (78) 94 10/01/19 00:24 148/66 10/01/19 00:00 65 10/01/19 00:00 Mechanical Ventilator Mechanical Ventilator 10/01/19 00:00 98.2 60 20 141/58 (85) 94 10/01/19 00:00 20 Mechanical Ventilator 60 10/01/19 00:00 20 141/59 Mechanical Ventilator 60 09/30/19 23:30 64 20 148/66 (93) 97 09/30/19 23:02 61 20 60 09/30/19 23:00 20 Mechanical Ventilator 60 09/30/19 23:00 20 142/60 Mechanical Ventilator 60 09/30/19 23:00 61 20 152/60 (90) 96 09/30/19 22:30 66 19 140/57 (84) 95 09/30/19 22:22 20 139/58 Mechanical Ventilator 10.0 60 09/30/19 22:00 67 20 136/54 (81) 96 09/30/19 22:00 20 Mechanical Ventilator 60 09/30/19 22:00 20 144/57 Mechanical Ventilator 60 09/30/19 21:31 68 139/58 09/30/19 21:31 68 139/58 09/30/19 21:30 65 20 153/58 (89) 96 09/30/19 21:00 20 Mechanical Ventilator 60 09/30/19 21:00 20 157/59 Mechanical Ventilator 60 09/30/19 21:00 66 20 156/57 (90) 95 09/30/19 20:52 68 20 60 09/30/19 20:30 67 20 159/64 (95) 94 09/30/19 20:00 98.7 77 19 163/58 (93) 98 09/30/19 20:00 Mechanical Ventilator Mechanical Ventilator 09/30/19 20:00 20 Mechanical Ventilator 60 09/30/19 20:00 20 145/63 Mechanical Ventilator 60 09/30/19 20:00 72 09/30/19 20:00 60 09/30/19 19:45 70 20 100 Mechanical Ventilator 60 71 20 60 09/30/19 19:00 78 22 139/58 (85) 97 09/30/19 19:00 22 Mechanical Ventilator 60 09/30/19 19:00 22 139/58 Mechanical Ventilator 60 09/30/19 18:30 75 18 172/62 (98) 98 09/30/19 18:19 181/59 09/30/19 18:00 21 Mechanical Ventilator 60 09/30/19 18:00 21 181/59 Mechanical Ventilator 60 09/30/19 18:00 70 21 181/59 (99) 100 09/30/19 17:45 71 21 182/69 (106) 100 09/30/19 17:30 67 20 169/72 (104) 99 09/30/19 17:12 68 20 90 09/30/19 17:00 20 Mechanical Ventilator 60 09/30/19 17:00 20 184/81 Mechanical Ventilator 60 09/30/19 17:00 69 20 184/81 (115) 100 09/30/19 16:30 67 20 164/67 (99) 97 09/30/19 16:00 Mechanical Ventilator Mechanical Ventilator 09/30/19 16:00 68 20 134/64 (87) 97 09/30/19 16:00 20 Mechanical Ventilator 60 09/30/19 16:00 20 134/64 Mechanical Ventilator 60 09/30/19 16:00 60 09/30/19 15:33 79 21 90 09/30/19 15:23 72 09/30/19 15:15 75 19 151/64 (93) 95 09/30/19 15:01 22 Mechanical Ventilator 60 8/17/20 15:00 22 168/71 Mechanical Ventilator 60 09/30/19 15:00 77 22 168/71 (103) 93 09/30/19 14:30 60 09/30/19 14:30 80 21 166/67 (100) 94 09/30/19 14:00 71 21 168/64 (98) 100 09/30/19 14:00 21 168/64 Mechanical Ventilator 90 09/30/19 13:36 71 22 99 Mechanical Ventilator 90 74 22 90 09/30/19 13:30 70 21 156/68 (97) 97 09/30/19 13:30 21 Mechanical Ventilator 90 09/30/19 13:00 20 Mechanical Ventilator 90 09/30/19 13:00 20 157/66 Mechanical Ventilator 90 09/30/19 13:00 70 20 157/66 (96) 98 09/30/19 12:45 73 24 173/78 (109) 97 09/30/19 12:30 71 09/30/19 12:30 69 20 148/62 (90) 98 09/30/19 12:15 69 20 144/62 (89) 98 09/30/19 12:00 98.9 70 20 155/62 (93) 98 09/30/19 12:00 20 Mechanical Ventilator 90 09/30/19 12:00 20 155/62 Mechanical Ventilator 90 09/30/19 12:00 Mechanical Ventilator Mechanical Ventilator 09/30/19 11:58 70 09/30/19 11:45 76 23 164/65 (98) 98 09/30/19 11:30 71 21 153/68 (96) 98 09/30/19 11:15 68 21 154/63 (93) 98 09/30/19 11:05 70 21 70 09/30/19 11:00 68 20 157/66 (96) 99 09/30/19 11:00 20 Mechanical Ventilator 90 09/30/19 11:00 20 157/66 Mechanical Ventilator 90 09/30/19 10:30 70 21 158/65 (96) 99 Objective: General Appearance: no apparent distress, bedridden middle age chronically ill looking female on vent AC 500-20-70% PEEP 5, less sedated Lines, tubes and drains: left jugular HD catheter HEENT: normocephalic, atraumatic, anicteric, trach - Shiley #7 cuffed XLT, secretions moderate amount, yellow color , thin consistency Respiratory/Chest: no accessory muscle use, few scattered rhonchi bilaterally , Cardiovascular/Chest: normal rate, regular rhythm - SR on tele Abdomen: normal bowel sounds, non tender, soft, G tube Genitourinary/Rectal: Norman Extremities: no edema Skin Exam: warm/dry, multiple tattoos all over the body Neurologic: abnormal gait, sedated Musculoskeletal: atrophy - BLE Critical Care - Subjective ROS Limited/Unobtainable: Yes Interval Events: no fevers, no leukocytosis ABG stable on these settings , no further hypoxia on Versed and Fentanyl gtt Condition: critical IV Access: central - Let jugular HD catheter EKG Rhythm: Sinus Rhythm FI02: 70 Vent Support Breath Rate: 20 Vent Support Mode: AC Vent Tidal Volume: 500 Sputum Amount: Scant PEEP: 5.0 PIP: 20 Drips: versed gtt 4 mcg/ht, Fentanyl gtt 230 mcg/hr Tube Feeding Amount: 40 I&O: Intake and Output 09/30/19 10/01/19 19:00 07:00 Intake Total 952.4 ml 1160 ml Output Total 3250 ml 235 ml Balance -2297.6 ml 925 ml IV Total 457.4 ml 460 ml Tube Feeding 435 ml 520 ml Other 60 ml 180 ml Output Urine Total 250 ml 235 ml Hemodialysis UF 3000 ml CXR: CXR 09/29 Suspect slight worsening of bilateral small edema versus infiltrates, over one day. Other stable findings as noted. Juve Martinez MD 10/01/19 1150: Critical Care - Asmt/Plan Assessment/Plan: Patient seen and examined with SHOVEL MECHANIC. Agree with above A&P as it reflects our joint deliberations. Time Spent (Minutes): 40 Bang Guardado MD 10/07/19 1112: Critical Care - Asmt/Plan Assessment/Plan: Patient seen and examined with SHOVEL MECHANIC. Agree with above A&P as it reflects our joint deliberations. CC Time: 40 min Yara Castro NP Oct 01, 2019 10:09 Juve Martinez MD Oct 01, 2019 11:50 Bang Guardado MD Oct 07, 2019 11:12
[2019-10-01] MEDS ORDERED: Gentamicin inj 160 MG in NS 110 ML IVPB ONE (12:00)
--- NOTE | 2019-10-01 12:41 | Nephrology Progress Note ---
Assessment/Plan Problem List: (1) JAVIER (acute kidney injury) (2) Renal failure (ARF), acute on chronic (3) Dehydration (4) Electrolyte imbalance (5) Anemia (6) Respiratory failure, acute and chronic (7) COPD with exacerbation Assessment Patient is presented with sepsis and pneumonia and UTI Patient has acute renal failure, possible underlying chronic kidney failure Severe anemia Electrolyte imbalances: Hyponatremia, hypo-kalemia Chronic respiratory failure, COPD exacerbation Plan September 30: Patient dialyzed yesterday. 3 L removed. Labs reviewed. Potassium supplement given. Continue per consultants. It appears that the patient required dialysis 2-3 times a week. September 29: Lab reviewed. Chest x-ray result noted. Continues to have pulmonary congestion. Urine output low. Will attempt dialysis again today with ultrafiltration. September 28: Lab reviewed. ABG reviewed. Potassium supplement given. No dialysis at this point. Will eval patient status and renal parameters daily. September 27: Lab reviewed. Last dialysis September 25. Continue to monitor renal parameters. Hemodialysis as needed. September 26: Lab reviewed. Dialyzed yesterday. Potassium supplement given. Medication list reviewed. Will observe renal parameters and arrange for dialysis as needed. September 25: Lab reviewed. Currently on hemodialysis. Tolerating well. Stable from renal standpoint of view. Blood pressure medication adjusted by increasing hydralazine. September 24: Lab reviewed. ABG reviewed. Both lab and ABG much improved. Patient was dialyzed yesterday. We will attempt dialysis tomorrow again. Will adjust that blood pressure medication dosages. September 23: Lab reviewed. ABG reviewed. Patient acidotic. IV bicarb 1 dose is given. Patient has dialysis catheter. Will order dialysis for ultrafiltration and correction of acid-base. Discussed with ERASMO Mohr. September 22: Labs reviewed. Potassium high. Kayexalate and Reglan given. Will discuss with the consultants regarding initiation of dialysis. September 21: Patient is being sedated. Labs reviewed. Potassium supplement discontinued. GFR 20. Continue per current treatment plan. Dialysis and ultrafiltration is a consideration. September 20: Patient periodically agitated. Labs reviewed. Creatinine 2.4. Medication reviewed. Continue per consultants. Calculated creatinine clearance 21. May need isolated ultrafiltration on dialysis. Will discuss with PMD. Meanwhile hemoglobin is lower, defer transfusion to PMD. September 19: DC IV fluid. Zaroxolyn via GT tube. Potassium supplement. Attempt to diurese. Chest CT as bilateral pleural effusion. If diuresis unsuccessful, will consider dialysis and ultrafiltration. September 18: Potassium supplement IV given. Hemoglobin stable. Patient remains full code. Continue per consultants. Previously: Potassium supplement IV Slow IV hydration Epogen subcu Adjust blood pressure medication IV fluid, rate adjusted Norman catheter, intake and output Monitor renal parameters Avoid nephrotoxic's Antibiotics Per orders 2D echocardiogram Kidney ultrasound Subjective ROS Limited/Unobtainable: Yes Objective Objective Last 24 Hour Vital Signs Date Time Temp Pulse Resp B/P (MAP) Pulse Ox O2 Delivery O2 Flow Rate FiO2 10/01/19 12:03 115/69 10/01/19 12:00 20 T-piece 10/01/19 11:09 61 20 70 10/01/19 11:00 62 20 118/45 (69) 96 10/01/19 10:30 62 20 126/51 (76) 96 10/01/19 10:00 62 16 117/46 (69) 99 10/01/19 09:30 64 20 129/50 (76) 100 10/01/19 09:22 63 20 70 10/01/19 09:00 67 19 127/46 (73) 99 10/01/19 08:57 69 136/54 10/01/19 08:30 66 20 137/51 (79) 97 10/01/19 08:00 61 10/01/19 08:00 65 19 160/62 (94) 89 10/01/19 08:00 Mechanical Ventilator Mechanical Ventilator 10/01/19 07:30 65 20 153/59 (90) 92 10/01/19 07:22 20 151/61 Mechanical Ventilator 10.0 70 10/01/19 07:21 20 145/60 Mechanical Ventilator 70 10/01/19 07:03 59 20 97 Mechanical Ventilator 70 62 20 70 10/01/19 07:00 98.8 59 20 150/57 (88) 99 10/01/19 07:00 20 Mechanical Ventilator 70 10/01/19 07:00 20 145/59 Mechanical Ventilator 70 10/01/19 06:15 67 19 151/61 (91) 93 10/01/19 06:00 63 20 138/52 (80) 93 10/01/19 06:00 20 Mechanical Ventilator 70 10/01/19 06:00 20 155/60 Mechanical Ventilator 70 10/01/19 05:41 98.7 10/01/19 05:31 70 10/01/19 05:30 69 19 151/64 (93) 94 10/01/19 05:13 60 139/56 10/01/19 05:11 139/56 10/01/19 05:00 20 Mechanical Ventilator 65 10/01/19 05:00 20 151/62 Mechanical Ventilator 70 10/01/19 05:00 62 19 151/62 (91) 96 10/01/19 04:47 58 20 70 10/01/19 04:30 57 20 123/49 (73) 92 10/01/19 04:00 65 10/01/19 04:00 20 Mechanical Ventilator 65 10/01/19 04:00 20 144/53 Mechanical Ventilator 60 10/01/19 04:00 60 10/01/19 04:00 98.4 57 20 144/53 (83) 95 10/01/19 04:00 Mechanical Ventilator Mechanical Ventilator 10/01/19 03:30 57 20 142/52 (82) 95 10/01/19 03:30 58 20 60 10/01/19 03:00 58 20 143/55 (84) 91 10/01/19 03:00 20 Mechanical Ventilator 60 10/01/19 03:00 20 143/55 Mechanical Ventilator 60 10/01/19 02:30 58 20 143/52 (82) 91 10/01/19 02:00 60 20 162/56 (91) 95 10/01/19 02:00 20 Mechanical Ventilator 60 10/01/19 02:00 20 162/56 Mechanical Ventilator 60 10/01/19 01:32 60 21 100 Mechanical Ventilator 60 63 20 60 10/01/19 01:30 20 Mechanical Ventilator 10.0 60 10/01/19 01:30 61 20 139/56 (83) 96 10/01/19 01:00 20 Mechanical Ventilator 60 10/01/19 01:00 20 148/55 Mechanical Ventilator 60 10/01/19 01:00 60 18 148/55 (86) 95 10/01/19 00:30 60 21 128/54 (78) 94 10/01/19 00:24 148/66 10/01/19 00:00 65 10/01/19 00:00 Mechanical Ventilator Mechanical Ventilator 10/01/19 00:00 98.2 60 20 141/58 (85) 94 10/01/19 00:00 20 Mechanical Ventilator 60 10/01/19 00:00 20 141/59 Mechanical Ventilator 60 09/30/19 23:30 64 20 148/66 (93) 97 09/30/19 23:02 61 20 60 09/30/19 23:00 20 Mechanical Ventilator 60 09/30/19 23:00 20 142/60 Mechanical Ventilator 60 09/30/19 23:00 61 20 152/60 (90) 96 09/30/19 22:30 66 19 140/57 (84) 95 09/30/19 22:22 20 139/58 Mechanical Ventilator 10.0 60 09/30/19 22:00 67 20 136/54 (81) 96 09/30/19 22:00 20 Mechanical Ventilator 60 09/30/19 22:00 20 144/57 Mechanical Ventilator 60 09/30/19 21:31 68 139/58 09/30/19 21:31 68 139/58 09/30/19 21:30 65 20 153/58 (89) 96 09/30/19 21:00 20 Mechanical Ventilator 60 09/30/19 21:00 20 157/59 Mechanical Ventilator 60 09/30/19 21:00 66 20 156/57 (90) 95 09/30/19 20:52 68 20 60 09/30/19 20:30 67 20 159/64 (95) 94 09/30/19 20:00 98.7 77 19 163/58 (93) 98 09/30/19 20:00 Mechanical Ventilator Mechanical Ventilator 09/30/19 20:00 20 Mechanical Ventilator 60 09/30/19 20:00 20 145/63 Mechanical Ventilator 60 09/30/19 20:00 72 09/30/19 20:00 60 09/30/19 19:45 70 20 100 Mechanical Ventilator 60 71 20 60 09/30/19 19:00 78 22 139/58 (85) 97 09/30/19 19:00 22 Mechanical Ventilator 60 09/30/19 19:00 22 139/58 Mechanical Ventilator 60 09/30/19 18:30 75 18 172/62 (98) 98 09/30/19 18:19 181/59 09/30/19 18:00 21 Mechanical Ventilator 60 09/30/19 18:00 21 181/59 Mechanical Ventilator 60 09/30/19 18:00 70 21 181/59 (99) 100 09/30/19 17:45 71 21 182/69 (106) 100 09/30/19 17:30 67 20 169/72 (104) 99 09/30/19 17:12 68 20 90 09/30/19 17:00 20 Mechanical Ventilator 60 09/30/19 17:00 20 184/81 Mechanical Ventilator 60 09/30/19 17:00 69 20 184/81 (115) 100 09/30/19 16:30 67 20 164/67 (99) 97 09/30/19 16:00 Mechanical Ventilator Mechanical Ventilator 09/30/19 16:00 68 20 134/64 (87) 97 09/30/19 16:00 20 Mechanical Ventilator 60 09/30/19 16:00 20 134/64 Mechanical Ventilator 60 09/30/19 16:00 60 09/30/19 15:33 79 21 90 09/30/19 15:23 72 09/30/19 15:15 75 19 151/64 (93) 95 09/30/19 15:01 22 Mechanical Ventilator 60 09/30/19 15:00 22 168/71 Mechanical Ventilator 60 09/30/19 15:00 77 22 168/71 (103) 93 09/30/19 14:30 60 09/30/19 14:30 80 21 166/67 (100) 94 09/30/19 14:00 71 21 168/64 (98) 100 09/30/19 14:00 21 168/64 Mechanical Ventilator 90 09/30/19 13:36 71 22 99 Mechanical Ventilator 90 74 22 90 09/30/19 13:30 70 21 156/68 (97) 97 09/30/19 13:30 21 Mechanical Ventilator 90 09/30/19 13:00 20 Mechanical Ventilator 90 09/30/19 13:00 20 157/66 Mechanical Ventilator 90 09/30/19 13:00 70 20 157/66 (96) 98 09/30/19 12:45 73 24 173/78 (109) 97 Intake and Output 09/30/19 10/01/19 19:00 07:00 Intake Total 952.4 ml 1160 ml Output Total 3250 ml 235 ml Balance -2297.6 ml 925 ml IV Total 457.4 ml 460 ml Tube Feeding 435 ml 520 ml Other 60 ml 180 ml Output Urine Total 250 ml 235 ml Hemodialysis UF 3000 ml Laboratory Tests 10/01/19 05:00: White Blood Count 7.4, Red Blood Count 2.92L, Hemoglobin 9.1L, Hematocrit 28.3L , Mean Corpuscular Volume 97, Mean Corpuscular Hemoglobin 31.3H, Mean Corpuscular Hemoglobin Concent 32.3, Red Cell Distribution Width 15.6H, Platelet Count 287, Mean Platelet Volume 5.9L, Neutrophils (%) (Auto) 74.7, Lymphocytes (%) (Auto) 19.3L, Monocytes (%) (Auto) 5.0, Eosinophils (%) (Auto) 0.4, Basophils (%) (Auto) 0.6, Sodium Level 138, Potassium Level 3.2L, Chloride Level 99, Carbon Dioxide Level 29, Anion Gap 10, Blood Urea Nitrogen 50H, Creatinine 1.9H, Estimat Glomerular Filtration Rate 28.3, Glucose Level 105, Calcium Level 8.1L, Phosphorus Level 4.0, Magnesium Level 2.2, Total Bilirubin 0.3, Aspartate Amino Transf (AST/SGOT) 13L, Alanine Aminotransferase (ALT/SGPT) 7L, Alkaline Phosphatase 145H, C-Reactive Protein, Quantitative 17.2H, Pro-B- Type Natriuretic Peptide > 65126V, Total Protein 6.7, Albumin 1.8L, Globulin 4.9 , Albumin/Globulin Ratio 0.4L, Random Gentamicin Level 0.8 10/01/19 07:07: Arterial Blood pH 7.470H, Arterial Blood Partial Pressure CO2 40.4, Arterial Blood Partial Pressure O2 68.4L, Arterial Blood HCO3 28.7H, Arterial Blood Oxygen Saturation 93.8L, Arterial Blood Base Excess 4.7H, Rojas Test Positive Height (Feet): 5 Height (Inches): 5.00 Weight (Pounds): 133 EENT: other Cardiovascular: normal rate Respiratory/Chest: decreased breath sounds Abdomen: distended Objective No change Johnny Houston MD Oct 01, 2019 12:41
[2019-10-01] MEDS ORDERED: Tubing Blood Filter IV ONE (13:08)
[2019-10-01] MEDS ORDERED: Tubing IV Secondary IV ONE ×2 (13:08→13:27)
[2019-10-01] MEDS ORDERED: NS 275ml ONE ×2 (13:08→13:27)
--- NOTE | 2019-10-01 15:10 | Surgery Progress Note ---
Surgery Progress Note Subjective Symptoms: improved Objective Last 24 Hour Vital Signs Date Time Temp Pulse Resp B/P (MAP) Pulse Ox O2 Delivery O2 Flow Rate FiO2 10/01/19 15:01 64 20 70 10/01/19 14:35 20 152/54 Mechanical Ventilator 10/01/19 14:30 63 20 132/54 (80) 96 10/01/19 14:00 66 19 135/55 (81) 99 10/01/19 13:29 72 137/53 10/01/19 13:00 72 18 136/57 (83) 98 10/01/19 12:57 71 23 100 Mechanical Ventilator 70 73 20 70 10/01/19 12:45 73 21 146/58 (87) 100 10/01/19 12:30 69 20 154/64 (94) 97 10/01/19 12:15 67 20 142/56 (84) 99 10/01/19 12:03 115/69 10/01/19 12:00 61 10/01/19 12:00 60 10/01/19 12:00 98.6 59 20 122/49 (73) 96 10/01/19 12:00 20 T-piece 10/01/19 12:00 Mechanical Ventilator Mechanical Ventilator 10/01/19 11:09 61 20 70 10/01/19 11:00 62 20 118/45 (69) 96 10/01/19 10:30 62 20 126/51 (76) 96 10/01/19 10:00 62 16 117/46 (69) 99 10/01/19 09:30 64 20 129/50 (76) 100 10/01/19 09:22 63 20 70 10/01/19 09:00 67 19 127/46 (73) 99 10/01/19 08:57 69 136/54 10/01/19 08:30 66 20 137/51 (79) 97 10/01/19 08:00 61 10/01/19 08:00 65 19 160/62 (94) 89 10/01/19 08:00 Mechanical Ventilator Mechanical Ventilator 10/01/19 07:30 65 20 153/59 (90) 92 10/01/19 07:22 20 151/61 Mechanical Ventilator 10.0 70 10/01/19 07:21 20 145/60 Mechanical Ventilator 70 10/01/19 07:03 59 20 97 Mechanical Ventilator 70 62 20 70 10/01/19 07:00 98.8 59 20 150/57 (88) 99 10/01/19 07:00 20 Mechanical Ventilator 70 10/01/19 07:00 20 145/59 Mechanical Ventilator 70 10/01/19 06:15 67 19 151/61 (91) 93 10/01/19 06:00 63 20 138/52 (80) 93 10/01/19 06:00 20 Mechanical Ventilator 70 10/01/19 06:00 20 155/60 Mechanical Ventilator 70 10/01/19 05:41 98.7 10/01/19 05:31 70 10/01/19 05:30 69 19 151/64 (93) 94 10/01/19 05:13 60 139/56 10/01/19 05:11 139/56 10/01/19 05:00 20 Mechanical Ventilator 65 10/01/19 05:00 20 151/62 Mechanical Ventilator 70 10/01/19 05:00 62 19 151/62 (91) 96 10/01/19 04:47 58 20 70 10/01/19 04:30 57 20 123/49 (73) 92 10/01/19 04:00 65 10/01/19 04:00 20 Mechanical Ventilator 65 10/01/19 04:00 20 144/53 Mechanical Ventilator 60 10/01/19 04:00 60 10/01/19 04:00 98.4 57 20 144/53 (83) 95 10/01/19 04:00 Mechanical Ventilator Mechanical Ventilator 10/01/19 03:30 57 20 142/52 (82) 95 10/01/19 03:30 58 20 60 10/01/19 03:00 58 20 143/55 (84) 91 10/01/19 03:00 20 Mechanical Ventilator 60 10/01/19 03:00 20 143/55 Mechanical Ventilator 60 10/01/19 02:30 58 20 143/52 (82) 91 10/01/19 02:00 60 20 162/56 (91) 95 10/01/19 02:00 20 Mechanical Ventilator 60 10/01/19 02:00 20 162/56 Mechanical Ventilator 60 10/01/19 01:32 60 21 100 Mechanical Ventilator 60 63 20 60 10/01/19 01:30 20 Mechanical Ventilator 10.0 60 10/01/19 01:30 61 20 139/56 (83) 96 10/01/19 01:00 20 Mechanical Ventilator 60 10/01/19 01:00 20 148/55 Mechanical Ventilator 60 10/01/19 01:00 60 18 148/55 (86) 95 10/01/19 00:30 60 21 128/54 (78) 94 10/01/19 00:24 148/66 10/01/19 00:00 65 10/01/19 00:00 Mechanical Ventilator Mechanical Ventilator 10/01/19 00:00 98.2 60 20 141/58 (85) 94 10/01/19 00:00 20 Mechanical Ventilator 60 10/01/19 00:00 20 141/59 Mechanical Ventilator 60 09/30/19 23:30 64 20 148/66 (93) 97 09/30/19 23:02 61 20 60 09/30/19 23:00 20 Mechanical Ventilator 60 09/30/19 23:00 20 142/60 Mechanical Ventilator 60 09/30/19 23:00 61 20 152/60 (90) 96 09/30/19 22:30 66 19 140/57 (84) 95 09/30/19 22:22 20 139/58 Mechanical Ventilator 10.0 60 09/30/19 22:00 67 20 136/54 (81) 96 09/30/19 22:00 20 Mechanical Ventilator 60 09/30/19 22:00 20 144/57 Mechanical Ventilator 60 09/30/19 21:31 68 139/58 09/30/19 21:31 68 139/58 09/30/19 21:30 65 20 153/58 (89) 96 09/30/19 21:00 20 Mechanical Ventilator 60 09/30/19 21:00 20 157/59 Mechanical Ventilator 60 09/30/19 21:00 66 20 156/57 (90) 95 09/30/19 20:52 68 20 60 09/30/19 20:30 67 20 159/64 (95) 94 09/30/19 20:00 98.7 77 19 163/58 (93) 98 09/30/19 20:00 Mechanical Ventilator Mechanical Ventilator 09/30/19 20:00 20 Mechanical Ventilator 60 09/30/19 20:00 20 145/63 Mechanical Ventilator 60 09/30/19 20:00 72 09/30/19 20:00 60 09/30/19 19:45 70 20 100 Mechanical Ventilator 60 71 20 60 09/30/19 19:00 78 22 139/58 (85) 97 09/30/19 19:00 22 Mechanical Ventilator 60 09/30/19 19:00 22 139/58 Mechanical Ventilator 60 09/30/19 18:30 75 18 172/62 (98) 98 09/30/19 18:19 181/59 09/30/19 18:00 21 Mechanical Ventilator 60 09/30/19 18:00 21 181/59 Mechanical Ventilator 60 09/30/19 18:00 70 21 181/59 (99) 100 09/30/19 17:45 71 21 182/69 (106) 100 09/30/19 17:30 67 20 169/72 (104) 99 09/30/19 17:12 68 20 90 09/30/19 17:00 20 Mechanical Ventilator 60 09/30/19 17:00 20 184/81 Mechanical Ventilator 60 09/30/19 17:00 69 20 184/81 (115) 100 09/30/19 16:30 67 20 164/67 (99) 97 09/30/19 16:00 Mechanical Ventilator Mechanical Ventilator 09/30/19 16:00 68 20 134/64 (87) 97 09/30/19 16:00 20 Mechanical Ventilator 60 09/30/19 16:00 20 134/64 Mechanical Ventilator 60 09/30/19 16:00 60 09/30/19 15:33 79 21 90 09/30/19 15:23 72 09/30/19 15:15 75 19 151/64 (93) 95 I&O Intake and Output 09/30/19 10/01/19 19:00 07:00 Intake Total 952.4 ml 1160 ml Output Total 3250 ml 235 ml Balance -2297.6 ml 925 ml IV Total 457.4 ml 460 ml Tube Feeding 435 ml 520 ml Other 60 ml 180 ml Output Urine Total 250 ml 235 ml Hemodialysis UF 3000 ml Dressing: saturated Cardiovascular: RSR Respiratory: decreased breath sounds Abdomen: soft, non-tender, present bowel sounds Extremities: no cyanosis Laboratory Tests Test 10/01/19 05:00 10/01/19 07:07 White Blood Count 7.4 K/UL (4.8-10.8) Red Blood Count 2.92 M/UL (4.20-5.40) L Hemoglobin 9.1 G/DL (12.0-16.0) L Hematocrit 28.3 % (37.0-47.0) L Mean Corpuscular Volume 97 FL (80-99) Mean Corpuscular Hemoglobin 31.3 PG (27.0-31.0) H Mean Corpuscular Hemoglobin Concent 32.3 G/DL (32.0-36.0) Red Cell Distribution Width 15.6 % (11.6-14.8) H Platelet Count 287 K/UL (150-450) Mean Platelet Volume 5.9 FL (6.5-10.1) L Neutrophils (%) (Auto) 74.7 % (45.0-75.0) Lymphocytes (%) (Auto) 19.3 % (20.0-45.0) L Monocytes (%) (Auto) 5.0 % (1.0-10.0) Eosinophils (%) (Auto) 0.4 % (0.0-3.0) Basophils (%) (Auto) 0.6 % (0.0-2.0) Sodium Level 138 MMOL/L (136-145) Potassium Level 3.2 MMOL/L (3.5-5.1) L Chloride Level 99 MMOL/L (98-107) Carbon Dioxide Level 29 MMOL/L (21-32) Anion Gap 10 mmol/L (5-15) Blood Urea Nitrogen 50 mg/dL (7-18) H Creatinine 1.9 MG/DL (0.55-1.30) H Estimat Glomerular Filtration Rate 28.3 mL/min (>60) Glucose Level 105 MG/DL (74-106) Calcium Level 8.1 MG/DL (8.5-10.1) L Phosphorus Level 4.0 MG/DL (2.5-4.9) Magnesium Level 2.2 MG/DL (1.8-2.4) Total Bilirubin 0.3 MG/DL (0.2-1.0) Aspartate Amino Transf (AST/SGOT) 13 U/L (15-37) L Alanine Aminotransferase (ALT/SGPT) 7 U/L (12-78) L Alkaline Phosphatase 145 U/L (46-116) H C-Reactive Protein, Quantitative 17.2 mg/dL (0.00-0.90) H Pro-B-Type Natriuretic Peptide > 75554 pg/mL (0-125) H Total Protein 6.7 G/DL (6.4-8.2) Albumin 1.8 G/DL (3.4-5.0) L Globulin 4.9 g/dL Albumin/Globulin Ratio 0.4 (1.0-2.7) L Random Gentamicin Level 0.8 ug/mL Arterial Blood pH 7.470 (7.350-7.450) Arterial Blood Partial Pressure CO2 40.4 mmHg (35.0-45.0) Arterial Blood Partial Pressure O2 68.4 mmHg (75.0-100.0) L Arterial Blood HCO3 28.7 mmol/L (22.0-26.0) H Arterial Blood Oxygen Saturation 93.8 % (95-100) L Arterial Blood Base Excess 4.7 (-2-2) H Rojas Test Positive Plan Problems: (1) Anemia (2) Proteinuria (3) UTI (urinary tract infection) (4) ARF (acute renal failure) (5) ACS (acute coronary syndrome) (6) Respiratory failure, acute and chronic (7) HCAP (healthcare-associated pneumonia) (8) Abrasion of lip, initial encounter (9) COPD with exacerbation (10) Hypokalemia (11) Sepsis Assessment & Plan: Leukocytosis, anemia, abnormal labs. Renal insufficiency potentially dehydrated Abnormal LFTs alk phos elevated Urine noted significant bacteria likely UTI etiology Wound stable still requiring local care IV antibiotics per infectious disease Discussed with pipelaying fitter Dr. Berkowitz air mattress turn q2h nutritional tf will follow with recs thank you CT noted pending VQ scan - noted poor study low prob PE work respiratory increasing needs sedation weaning vent settings 80% peep 10 now comfortable Hd line in receiving HD plan for left thora 09/26 (12) Chronic respiratory failure (13) Ascites (14) Bacteremia (15) Hypernatremia (16) Pleural effusion (17) Pacemaker (18) Aortic dissection, thoracic (19) Tracheostomy in place Assessment & Plan: trach stable no bleeding currently likely tongue etiology of mild oozing currently hemostatic without trauma (20) Feeding by G-tube Assessment & Plan: okay to resume tube feeds via g tube patent and functional dressings okay DAILY ESTIMATED NEEDS: Needs based on Pulmonary, wound 49kg 30-35 kcals/kg [id number] total kcals 1.25-2 g protein/kg 61-98 g total protein Fluid per MD NUTRITION DIAGNOSIS: * Swallowing difficulty R/T dysphagia, respiratory status as evidenced by vent dep via T-collar, GT Dep. (CURRENT TF: Nepro @45ml/hr x 24 hrs) ENTERAL NUTRITION RECOMMENDATIONS: Nepro @ 40ml/hr x 24 hrs to provide 960ml, 1728kcal, 78g prot, 698ml free water * Rec LOWER current rate to 40ml/hr for 24 hrs run. 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 Base of wound is granular with bone exposure at base of sacrococcygeal.(L)10.5cm x (W06.5cm x (D) 2.8cm , undermining 11-3 by 3.6cm @12 o'clock. small amt serosanguineous exudate noted . [place] epithelial along edges bordered by darker skin tone without erythema. Resolving Pressure injury L ischium. Base of wound is 95% pink epithelial ,5% noni at center base of wound. No exudate noted. Both heels are boggy with non-Blanching erythema. Tx.plan: Cleanse Sacral wound with Saline. Loosely pack with Hydrogel impregnated Kerlix. Apply Moisture Barrier Periwound. Cover with Optifoam drsg Daily and prn. Apply Moisture Barrier paste to L Ischium. Cover with Optifoam drsg. Changee very 3 days and prn. Apply Cavilon Skin Barrier to both heels. Cover each heel with Optifoam drsgs. Change every 7 days and prn. Reposition at least every 2hours or as tolerated. Off-load heels with pillow. APM/JENNIFER Mattress overlay. Lane Saavedra Oct 01, 2019 15:10
--- NOTE | 2019-10-01 15:29 | Diagnostic Imaging Report ---
Indication: Shortness of breath Technique: One view of the chest Comparison: 09/30/2019 Findings: Stable satisfactory positions of tracheostomy, left jugular temporary dialysis catheter. Bilateral interstitial and airspace edema persists, appears slightly improved at the lung bases. There are likely small bilateral pleural effusions still present. Impression: Bilateral interstitial and airspace edema, perhaps slightly improved since previous day's exam. Other stable findings as described
[2019-10-01] MEDS: Miralax 17gm pkt ORAL SCH (20:37)
[2019-10-01] MEDS: Dyna-Hex 2% Top Sol 2oz TOPIC SCH (20:37)
[2019-10-01] MEDS: Sertraline 100mg tab GT SCH (20:38)
[2019-10-02] VITALS (97 sets, daily range): BP systolic 121–191; BP diastolic 55–104
[2019-10-02] MEDS: traMADol 50mg tab GT SCH ×5 (00:06→23:12)
[2019-10-02] MEDS: HydrALAZINE 50mg tab GT SCH ×3 (00:06→12:44)
[2019-10-02] MEDS: fentaNYL 2500mcg/NS 250ml 250 ML IV SCH ×2 (00:07→14:55)
[2019-10-02] MEDS: Docusate 100mg/10ml Liq GT SCH ×4 (00:09→23:12)
[2019-10-02] MEDS: Albuterol/Ipratropium 3ml neb HHN SCH ×4 (00:41→19:27)
[2019-10-02] MEDS: CEFTOLOZANE IV SCH ×3 (03:36→20:45)
[2019-10-02] MEDS: TAZOBACTAM IV SCH ×3 (03:36→20:45)
[2019-10-02] MEDS: NS IV SCH ×3 (03:36→20:45)
[2019-10-02 05:15] LABS: BASOPHILS % (AUTO) 0.6 % (0.0-2.0); EOSINOPHILS % (AUTO) 4.4 % (0.0-3.0); HEMATOCRIT 28.5 % (37.0-47.0); HEMOGLOBIN 9.2 G/DL (12.0-16.0); LYMPHOCYTES % (AUTO) 18.3 % (20.0-45.0); MEAN CORPUSCULAR VOLUME 97 FL (80-99); MONOCYTES % (AUTO) 5.2 % (1.0-10.0); NEUTROPHILS % (AUTO) 71.6 % (45.0-75.0); PLATELET COUNT 304 K/UL (150-450); RED BLOOD COUNT 2.96 M/UL (4.20-5.40); RED CELL DISTRIBUTION WIDTH 14.7 % (11.6-14.8); WHITE BLOOD COUNT 7.1 K/UL (4.8-10.8)
[2019-10-02] MEDS: Metoclopramide 10mg/2ml Inj IVP SCH ×3 (05:45→21:53)
[2019-10-02] MEDS: dilTIAZem HCl 30mg tab GT SCH ×3 (05:45→21:53)
[2019-10-02 05:49] LABS: ALANINE AMINOTRANSFERASE 10 U/L (12-78); ALBUMIN 1.6 G/DL (3.4-5.0); ALBUMIN/GLOBULIN RATIO 0.3 (1.0-2.7); ALKALINE PHOSPHATASE 131 U/L (46-116); ANION GAP 7 mmol/L (5-15); ASPARTATE AMINO TRANSFERASE 19 U/L (15-37); BILIRUBIN,TOTAL 0.3 MG/DL (0.2-1.0); BLOOD UREA NITROGEN 61 mg/dL (7-18); CALCIUM 8.7 MG/DL (8.5-10.1); CARBON DIOXIDE 30 MMOL/L (21-32); CHLORIDE 102 MMOL/L (98-107); CREATININE 2.2 MG/DL (0.55-1.30); POTASSIUM 3.2 MMOL/L (3.5-5.1); SODIUM 139 MMOL/L (136-145)
--- NOTE | 2019-10-02 07:20 | Hematology/Onc Progress Note ---
Assessment/Plan Assessment/Plan Assessment and Recs # Leukocytosis, now with gram positive bacteremias well as pna noted --> historically --> PPM site (pocket) infection (redness and pain, bacteremia) and likely pocket abscess - no vegetation seen on ABBIE --> is s'p pm removal and also pocket infection is better --> per cards recs in re to tach/davis --> wbc 15-->19-->17-->15-->13->12-->13-->12>13-->18-->9 --> ABX cefepime/levaquin--> vanc/angelo --> ID recs are noted # Anemia of chronic disease due to underlying chronic medical issues, multifactorial --> Anemia workup has been reviewed, cw acd --> No evidence of hemolysis is noted, peripheral smear has been reviewed. --> Hgb goal >7. Transfuse prn. --> Epogen started --> Medications have been reviewed --> low threshold for gi evaluation in case has occult + --> hgb 7.1-->7.8-->8.9->9.2-->8.5-->9.7-->10-->8.8-->9.6-->8.7->8.6-->7.2->8.7- >9.1-->9.2 --> 1 unit prbc 09/27 # Thrombocytois is likely reactive process, is s/p infection --> plt trend 610k-->706k --> p smear reviewed # Acute hypoxic respiratory failure s/p intubation 11/23- ?ARDS --> on vent/trach # Gram positive bacteremia- real bacteremia- 2ry to above and probable PNA --> per id care # JAVIER initially >2 --> now improved with D5w # Dysphagia s/p peg # Thoracic aortic dissection s/p repair early 2017 # Psychiatric history on ativan/haldol # [place] resident # Dvt ppx heparin sq The timing of this note does not necessarily reflect the time of the patient was seen. Greatly appreciate consultation. Subjective HEENT: Denies: no symptoms, eye pain, blurred vision, tearing, double vision, ear pain, ear discharge, nose pain, nose congestion, throat pain, throat swelling, mouth pain, mouth swelling, other Cardiovascular: Denies: no symptoms, chest pain, edema, irregular heart rate, lightheadedness, palpitations, syncope, other Respiratory: Denies: no symptoms, cough, shortness of breath, SOB with excertion, SOB at rest, sputum, wheezing, other Gastrointestinal/Abdominal: Denies: no symptoms, abdomen distended, abdominal pain, black stools, tarry stools, blood in stool, constipated, diarrhea, difficulty swallowing, nausea, poor appetite, poor fluid intake, rectal bleeding , vomiting, other Genitourinary: Denies: no symptoms, burning, discharge, frequency, flank pain, hematuria, incontinence, pain, urgency, other Endocrine: Denies: no symptoms, excessive sweating, flushing, intolerance to cold, intolerance to heat, increased hunger, increased thirst, increased urine, unexplained weight gain, unexplained weight loss, other Allergies: Coded Allergies: No Known Allergies (Unverified , 10/10/17) Subjective 09/16 on vent now, consulted in am pulm, on vent setting, labs noted, hep sq 09/17 meds noted, cbc noted, labs noted, no bleeding 09/18 is to undergo potential v/q scan given abg, labs noted, resless, on ativan, to get haldol today, roman ramesh 09/19 remains agitated, covering, with sacral wound seeping, likely cause of anemia, roman ramesh 09/26 restless, remains agitated, gtube ripped, eval with rn, and almai consulted 09/27 remains on vent, agitated, seen by gi, hgb low, roman George to transfuse 1 unit prbc 09/28 meds noted, no bleeding, on vent, s/p blood tranfusion, cbc pending, roman ramesh 09/29 remains in the icu, roman ramesh in the am, agitated, on versed, fentanyl, restraints 09/30 in icu, trach to vent, on gtube feeds, fentanyl, agitated 10/01 in icu, roman Ayoub rn, no bleeding, sleeping, labs noted, hgb >9 Objective Objective Current Medications Medications (Trade) Dose Ordered Sig/Penny Route PRN Reason Start Time Stop Time Status Last Admin Dose Admin Acetaminophen (Tylenol) 325 mg Q6H PRN GT Temp >100.5 09/23/19 10:45 10/23/19 10:44 09/23/19 18:55 Albuterol/ Ipratropium (Albuterol/ Ipratropium) 3 ml Q6HRT HHN 09/30/19 13:00 10/04/19 12:59 10/02/19 00:41 Ceftolozane/ Tazobactam 0.45 gm/Sodium Chloride 110 ml @ 110 mls/hr Q8H IV 09/28/19 20:00 10/05/19 19:59 10/02/19 03:36 Chlorhexidine Gluconate (Ling-Hex 2%) 1 applic DAILY@2000 TOPIC 09/23/19 20:00 12/22/19 19:59 10/01/19 20:37 Diltiazem HCl (Cardizem Tab) 30 mg EVERY 8 HOURS GT 09/25/19 14:00 10/15/19 11:59 10/02/19 05:45 Docusate Sodium (Colace) 100 mg Q8H GT 09/29/19 08:30 10/29/19 08:29 10/02/19 00:09 Epoetin Gelacio (Epoetin Gelacio(ESRD on dialysis)) 10,000 unit MON-MON-MON SUBQ 09/25/19 21:00 12/24/19 20:59 09/30/19 21:34 Fentanyl Citrate 250 ml @ 0 mls/hr Q24H IV 10/01/19 14:30 10/03/19 14:29 10/02/19 00:07 Gentamicin Protocol (Gentamicin pharmacy to dose) 1 ea DAILY PRN MISC Per rx protocol 09/28/19 13:15 10/28/19 13:14 Heparin Sodium (Porcine) (Heparin 5000 units/ml) 5,000 units EVERY 12 HOURS SUBQ 09/17/19 21:00 10/30/19 08:59 10/01/19 20:39 Hydralazine HCl (Apresoline) 10 mg Q4H PRN IV BP over 160 systolic 09/17/19 11:15 12/14/19 11:14 09/24/19 15:55 Hydralazine HCl (Apresoline) 50 mg Q6HR GT 09/26/19 18:00 12/15/19 17:59 10/02/19 05:45 Lansoprazole (Prevacid) 30 mg Q12HR GT 09/27/19 21:00 10/27/19 20:59 10/01/19 20:37 Metoclopramide HCl (Reglan) 10 mg Q8H IVP 09/29/19 14:00 10/29/19 13:59 10/02/19 05:45 Metoprolol Tartrate (Lopressor) 25 mg EVERY 12 HOURS GT 09/25/19 21:00 12/14/19 20:59 10/01/19 20:38 Midazolam HCl (Versed 2mg/2ml vial) 1 mg Q4H PRN IVP For Anxiety 09/21/19 09:30 12/20/19 09:29 09/27/19 08:57 Olanzapine (ZyPREXA) 2.5 mg DAILY GT 09/18/19 09:00 10/30/19 08:59 10/01/19 08:57 Polyethylene Glycol (Miralax) 17 gm BEDTIME ORAL 10/01/19 21:00 10/31/19 20:59 10/01/19 20:37 Sertraline HCl (Zoloft) 100 mg BEDTIME GT 09/17/19 21:00 10/15/19 20:59 10/01/19 20:38 Sorbitol (sorbitoL) 30 ml EVERY 6 HOURS PRN GT Constipation 09/29/19 18:00 10/29/19 17:59 10/01/19 00:44 Tramadol HCl (Ultram) 25 mg Q6HR GT 09/27/19 09:45 10/04/19 09:44 10/02/19 05:45 Last 24 Hour Vital Signs Date Time Temp Pulse Resp B/P (MAP) Pulse Ox O2 Delivery O2 Flow Rate FiO2 10/02/19 07:00 70 22 154/63 (93) 100 10/02/19 07:00 22 154/63 Mechanical Ventilator 60 10/02/19 06:45 71 21 148/61 (90) 97 10/02/19 06:30 74 22 152/62 (92) 100 10/02/19 06:15 73 21 143/60 (87) 98 10/02/19 06:00 69 21 143/63 (89) 98 10/02/19 06:00 20 143/60 Mechanical Ventilator 60 10/02/19 05:45 156/67 10/02/19 05:45 69 156/67 10/02/19 05:45 69 21 152/55 (87) 98 10/02/19 05:30 70 21 152/67 (95) 99 10/02/19 05:15 67 20 152/62 (92) 97 10/02/19 05:03 66 20 60 10/02/19 05:00 20 158/61 Mechanical Ventilator 60 10/02/19 05:00 66 20 158/61 (93) 97 10/02/19 04:45 64 20 146/62 (90) 97 10/02/19 04:30 66 20 139/61 (87) 97 10/02/19 04:15 65 20 156/62 (93) 98 10/02/19 04:00 Mechanical Ventilator Mechanical Ventilator 10/02/19 04:00 20 156/62 Mechanical Ventilator 60 10/02/19 04:00 60 10/02/19 04:00 98.8 65 19 164/65 (98) 99 10/02/19 03:45 66 10/02/19 03:45 66 20 150/62 (91) 98 10/02/19 03:30 67 20 60 10/02/19 03:30 67 20 153/64 (93) 98 10/02/19 03:15 72 21 162/67 (98) 99 10/02/19 03:00 73 22 160/71 (100) 99 10/02/19 03:00 20 162/67 Mechanical Ventilator 60 10/02/19 02:45 71 23 167/63 (97) 97 10/02/19 02:30 73 24 153/59 (90) 97 10/02/19 02:15 71 22 158/62 (94) 97 10/02/19 02:00 71 23 163/61 (95) 97 10/02/19 02:00 20 163/61 Mechanical Ventilator 60 10/02/19 01:45 70 22 168/63 (98) 98 10/02/19 01:30 72 21 161/65 (97) 97 10/02/19 01:15 72 21 167/65 (99) 96 10/02/19 01:00 73 22 165/64 (97) 96 10/02/19 01:00 24 165/64 Mechanical Ventilator 60 10/02/19 00:45 67 20 144/58 (86) 97 10/02/19 00:41 71 22 100 Mechanical Ventilator 60 72 23 74 10/02/19 00:30 67 24 173/64 (100) 94 10/02/19 00:15 67 19 154/60 (91) 93 10/02/19 00:07 20 153/55 Mechanical Ventilator 60 10/02/19 00:06 153/55 10/02/19 00:00 21 154/60 Mechanical Ventilator 60 10/02/19 00:00 99.1 65 23 153/55 (87) 95 10/02/19 00:00 Mechanical Ventilator Mechanical Ventilator 10/01/19 23:45 64 20 161/61 (94) 95 10/01/19 23:30 65 20 167/57 (93) 96 10/01/19 23:15 63 10/01/19 23:15 63 20 170/60 (96) 97 10/01/19 23:00 63 19 171/62 (98) 97 10/01/19 23:00 20 161/61 Mechanical Ventilator 60 10/01/19 22:45 65 18 166/61 (96) 96 10/01/19 22:30 76 25 169/64 (99) 96 10/01/19 22:30 69 21 60 10/01/19 22:15 70 20 149/56 (87) 95 10/01/19 22:00 20 149/56 Mechanical Ventilator 60 10/01/19 22:00 67 20 157/63 (94) 97 10/01/19 21:45 66 20 169/58 (95) 98 10/01/19 21:30 67 20 173/60 (97) 98 10/01/19 21:23 66 175/63 10/01/19 21:18 65 20 60 10/01/19 21:15 70 21 175/63 (100) 97 10/01/19 21:00 21 175/63 Mechanical Ventilator 60 18 21:00 70 21 167/66 (99) 95 10/01/19 20:45 75 21 160/59 (92) 95 20 20:38 66 171/57 10/01/19 20:30 68 21 171/57 (95) 93 10/01/19 20:15 65 20 166/58 (94) 97 10/01/19 20:00 98.9 66 23 175/62 (99) 95 20 20:00 Mechanical Ventilator Mechanical Ventilator 10/01/19 20:00 20 166/58 Mechanical Ventilator 60 20 20:00 60 20 19:45 63 20 180/62 (101) 97 10/01/19 19:30 66 20 100 Mechanical Ventilator 60 72 21 60 20 19:30 65 21 168/57 (94) 95 10/01/19 19:17 65 10/01/19 19:15 66 20 155/59 (91) 96 10/01/19 19:00 20 155/59 Mechanical Ventilator 60 10/01/19 19:00 70 23 155/56 (89) 95 10/01/19 18:30 73 25 171/61 (97) 95 10/01/19 18:00 66 21 159/57 (91) 94 10/01/19 17:47 158/55 10/01/19 17:35 65 21 158/55 (89) 95 10/01/19 17:00 66 20 152/56 (88) 95 10/01/19 16:38 69 20 70 10/01/19 16:30 66 21 156/73 (100) 95 10/01/19 16:00 60 10/01/19 16:00 72 10/01/19 16:00 Mechanical Ventilator Mechanical Ventilator 10/01/19 16:00 99.0 64 20 122/49 (73) 96 10/01/19 15:01 64 20 70 10/01/19 15:00 62 20 125/54 (77) 96 10/01/19 14:35 20 152/54 Mechanical Ventilator 10/01/19 14:30 63 20 132/54 (80) 96 10/01/19 14:00 66 19 135/55 (81) 99 10/01/19 13:29 72 137/53 10/01/19 13:00 72 18 136/57 (83) 98 10/01/19 12:57 71 23 100 Mechanical Ventilator 70 73 20 70 10/01/19 12:45 73 21 146/58 (87) 100 10/01/19 12:30 69 20 154/64 (94) 97 10/01/19 12:15 67 20 142/56 (84) 99 10/01/19 12:03 115/69 10/01/19 12:00 61 10/01/19 12:00 60 10/01/19 12:00 98.6 59 20 122/49 (73) 96 10/01/19 12:00 20 T-piece 10/01/19 12:00 Mechanical Ventilator Mechanical Ventilator 10/01/19 11:09 61 20 70 10/01/19 11:00 62 20 118/45 (69) 96 10/01/19 10:30 62 20 126/51 (76) 96 10/01/19 10:00 62 16 117/46 (69) 99 10/01/19 09:30 64 20 129/50 (76) 100 10/01/19 09:22 63 20 70 10/01/19 09:00 67 19 127/46 (73) 99 10/01/19 08:57 69 136/54 10/01/19 08:30 66 20 137/51 (79) 97 10/01/19 08:00 61 10/01/19 08:00 65 19 160/62 (94) 89 10/01/19 08:00 Mechanical Ventilator Mechanical Ventilator 10/01/19 07:30 65 20 153/59 (90) 92 10/01/19 07:22 20 151/61 Mechanical Ventilator 10.0 70 10/01/19 07:21 20 145/60 Mechanical Ventilator 70 10/01/19 07:03 59 20 97 Mechanical Ventilator 70 62 20 70 10/01/19 07:00 98.8 59 20 150/57 (88) 99 10/01/19 07:00 20 Mechanical Ventilator 70 10/01/19 07:00 20 145/59 Mechanical Ventilator 70 10/01/19 06:15 67 19 151/61 (91) 93 10/01/19 06:00 63 20 138/52 (80) 93 10/01/19 06:00 20 Mechanical Ventilator 70 10/01/19 06:00 20 155/60 Mechanical Ventilator 70 10/01/19 05:41 98.7 10/01/19 05:31 70 10/01/19 05:30 69 19 151/64 (93) 94 10/01/19 05:13 60 139/56 10/01/19 05:11 139/56 10/01/19 05:00 20 Mechanical Ventilator 65 10/01/19 05:00 20 151/62 Mechanical Ventilator 70 10/01/19 05:00 62 19 151/62 (91) 96 8/18/20 04:47 58 20 70 10/01/19 04:30 57 20 123/49 (73) 92 10/01/19 04:00 65 10/01/19 04:00 20 Mechanical Ventilator 65 10/01/19 04:00 20 144/53 Mechanical Ventilator 60 10/01/19 04:00 60 10/01/19 04:00 98.4 57 20 144/53 (83) 95 10/01/19 04:00 Mechanical Ventilator Mechanical Ventilator 10/01/19 03:30 57 20 142/52 (82) 95 10/01/19 03:30 58 20 60 10/01/19 03:00 58 20 143/55 (84) 91 10/01/19 03:00 20 Mechanical Ventilator 60 10/01/19 03:00 20 143/55 Mechanical Ventilator 60 10/01/19 02:30 58 20 143/52 (82) 91 10/01/19 02:00 60 20 162/56 (91) 95 10/01/19 02:00 20 Mechanical Ventilator 60 10/01/19 02:00 20 162/56 Mechanical Ventilator 60 10/01/19 01:32 60 21 100 Mechanical Ventilator 60 63 20 60 10/01/19 01:30 20 Mechanical Ventilator 10.0 60 10/01/19 01:30 61 20 139/56 (83) 96 10/01/19 01:00 20 Mechanical Ventilator 60 10/01/19 01:00 20 148/55 Mechanical Ventilator 60 10/01/19 01:00 60 18 148/55 (86) 95 10/01/19 00:30 60 21 128/54 (78) 94 10/01/19 00:24 148/66 10/01/19 00:00 65 10/01/19 00:00 Mechanical Ventilator Mechanical Ventilator 10/01/19 00:00 98.2 60 20 141/58 (85) 94 10/01/19 00:00 20 Mechanical Ventilator 60 10/01/19 00:00 20 141/59 Mechanical Ventilator 60 09/30/19 23:30 64 20 148/66 (93) 97 09/30/19 23:02 61 20 60 09/30/19 23:00 20 Mechanical Ventilator 60 09/30/19 23:00 20 142/60 Mechanical Ventilator 60 09/30/19 23:00 61 20 152/60 (90) 96 09/30/19 22:30 66 19 140/57 (84) 95 09/30/19 22:22 20 139/58 Mechanical Ventilator 10.0 60 09/30/19 22:00 67 20 136/54 (81) 96 09/30/19 22:00 20 Mechanical Ventilator 60 09/30/19 22:00 20 144/57 Mechanical Ventilator 60 09/30/19 21:31 68 139/58 09/30/19 21:31 68 139/58 09/30/19 21:30 65 20 153/58 (89) 96 09/30/19 21:00 20 Mechanical Ventilator 60 09/30/19 21:00 20 157/59 Mechanical Ventilator 60 09/30/19 21:00 66 20 156/57 (90) 95 09/30/19 20:52 68 20 60 09/30/19 20:30 67 20 159/64 (95) 94 09/30/19 20:00 98.7 77 19 163/58 (93) 98 09/30/19 20:00 Mechanical Ventilator Mechanical Ventilator 09/30/19 20:00 20 Mechanical Ventilator 60 09/30/19 20:00 20 145/63 Mechanical Ventilator 60 09/30/19 20:00 72 09/30/19 20:00 60 09/30/19 19:45 70 20 100 Mechanical Ventilator 60 71 20 60 09/30/19 19:00 78 22 139/58 (85) 97 09/30/19 19:00 22 Mechanical Ventilator 60 09/30/19 19:00 22 139/58 Mechanical Ventilator 60 09/30/19 18:30 75 18 172/62 (98) 98 09/30/19 18:19 181/59 09/30/19 18:00 21 Mechanical Ventilator 60 09/30/19 18:00 21 181/59 Mechanical Ventilator 60 09/30/19 18:00 70 21 181/59 (99) 100 09/30/19 17:45 71 21 182/69 (106) 100 09/30/19 17:30 67 20 169/72 (104) 99 09/30/19 17:12 68 20 90 09/30/19 17:00 20 Mechanical Ventilator 60 09/30/19 17:00 20 184/81 Mechanical Ventilator 60 09/30/19 17:00 69 20 184/81 (115) 100 09/30/19 16:30 67 20 164/67 (99) 97 09/30/19 16:00 Mechanical Ventilator Mechanical Ventilator 09/30/19 16:00 68 20 134/64 (87) 97 09/30/19 16:00 20 Mechanical Ventilator 60 09/30/19 16:00 20 134/64 Mechanical Ventilator 60 09/30/19 16:00 60 09/30/19 15:33 79 21 90 09/30/19 15:23 72 09/30/19 15:15 75 19 151/64 (93) 95 09/30/19 15:01 22 Mechanical Ventilator 60 09/30/19 15:00 22 168/71 Mechanical Ventilator 60 09/30/19 15:00 77 22 168/71 (103) 93 09/30/19 14:30 60 09/30/19 14:30 80 21 166/67 (100) 94 09/30/19 14:00 71 21 168/64 (98) 100 09/30/19 14:00 21 168/64 Mechanical Ventilator 90 09/30/19 13:36 71 22 99 Mechanical Ventilator 90 74 22 90 09/30/19 13:30 70 21 156/68 (97) 97 09/30/19 13:30 21 Mechanical Ventilator 90 09/30/19 13:00 20 Mechanical Ventilator 90 09/30/19 13:00 20 157/66 Mechanical Ventilator 90 09/30/19 13:00 70 20 157/66 (96) 98 09/30/19 12:45 73 24 173/78 (109) 97 09/30/19 12:30 71 09/30/19 12:30 69 20 148/62 (90) 98 09/30/19 12:15 69 20 144/62 (89) 98 09/30/19 12:00 98.9 70 20 155/62 (93) 98 09/30/19 12:00 20 Mechanical Ventilator 90 09/30/19 12:00 20 155/62 Mechanical Ventilator 90 09/30/19 12:00 Mechanical Ventilator Mechanical Ventilator 09/30/19 11:58 70 09/30/19 11:45 76 23 164/65 (98) 98 09/30/19 11:30 71 21 153/68 (96) 98 09/30/19 11:15 68 21 154/63 (93) 98 09/30/19 11:05 70 21 70 09/30/19 11:00 68 20 157/66 (96) 99 09/30/19 11:00 20 Mechanical Ventilator 90 09/30/19 11:00 20 157/66 Mechanical Ventilator 90 09/30/19 10:30 70 21 158/65 (96) 99 09/30/19 10:01 19 165/79 Mechanical Ventilator 90 09/30/19 10:00 22 Mechanical Ventilator 70 09/30/19 10:00 22 160/68 Mechanical Ventilator 90 09/30/19 10:00 73 22 160/68 (98) 100 09/30/19 09:20 90 09/30/19 09:19 76 23 70 09/30/19 09:00 30 Mechanical Ventilator 70 09/30/19 09:00 30 163/65 Mechanical Ventilator 70 09/30/19 09:00 81 30 163/65 (97) 93 09/30/19 08:30 80 26 155/63 (93) 92 09/30/19 08:00 Mechanical Ventilator Mechanical Ventilator 09/30/19 08:00 22 Mechanical Ventilator 70 09/30/19 08:00 22 150/74 Mechanical Ventilator 70 09/30/19 08:00 99.1 74 22 150/74 (99) 92 09/30/19 08:00 70 09/30/19 07:51 77 09/30/19 07:30 73 28 154/62 (92) 92 Intake and Output 10/01/19 10/02/19 19:00 07:00 Intake Total 1126 ml 1922.6 ml Output Total 227 ml 355 ml Balance 899 ml 1567.6 ml IV Total 586 ml 1352.6 ml Tube Feeding 480 ml 480 ml Other 60 ml 90 ml Output Urine Total 227 ml 355 ml Labs Test 09/29/19 08:02 09/30/19 05:11 09/30/19 08:24 10/01/19 05:00 Arterial Blood pH 7.431 (7.350-7.450) 7.383 (7.350-7.450) Arterial Blood Partial Pressure CO2 40.7 mmHg (35.0-45.0) 44.8 mmHg (35.0-45.0) Arterial Blood Partial Pressure O2 72.7 mmHg (75.0-100.0) 54.0 mmHg (75.0-100.0) Arterial Blood HCO3 26.5 mmol/L (22.0-26.0) 26.1 mmol/L (22.0-26.0) Arterial Blood Oxygen Saturation 94.0 % (95-100) 86.8 % (95-100) Arterial Blood Base Excess 2.0 (-2-2) 0.8 (-2-2) Rojas Test Positive Positive White Blood Count 9.6 K/UL (4.8-10.8) 7.4 K/UL (4.8-10.8) Red Blood Count 2.75 M/UL (4.20-5.40) 2.92 M/UL (4.20-5.40) Hemoglobin 8.7 G/DL (12.0-16.0) 9.1 G/DL (12.0-16.0) Hematocrit 27.0 % (37.0-47.0) 28.3 % (37.0-47.0) Mean Corpuscular Volume 98 FL (80-99) 97 FL (80-99) Mean Corpuscular Hemoglobin 31.8 PG (27.0-31.0) 31.3 PG (27.0-31.0) Mean Corpuscular Hemoglobin Concent 32.4 G/DL (32.0-36.0) 32.3 G/DL (32.0-36.0) Red Cell Distribution Width 15.6 % (11.6-14.8) 15.6 % (11.6-14.8) Platelet Count 258 K/UL (150-450) 287 K/UL (150-450) Mean Platelet Volume 6.1 FL (6.5-10.1) 5.9 FL (6.5-10.1) Neutrophils (%) (Auto) 79.3 % (45.0-75.0) 74.7 % (45.0-75.0) Lymphocytes (%) (Auto) 13.6 % (20.0-45.0) 19.3 % (20.0-45.0) Monocytes (%) (Auto) 4.6 % (1.0-10.0) 5.0 % (1.0-10.0) Eosinophils (%) (Auto) 2.0 % (0.0-3.0) 0.4 % (0.0-3.0) Basophils (%) (Auto) 0.5 % (0.0-2.0) 0.6 % (0.0-2.0) Sodium Level 142 MMOL/L (136-145) 138 MMOL/L (136-145) Potassium Level 3.9 MMOL/L (3.5-5.1) 3.2 MMOL/L (3.5-5.1) Chloride Level 104 MMOL/L (98-107) 99 MMOL/L (98-107) Carbon Dioxide Level 30 MMOL/L (21-32) 29 MMOL/L (21-32) Anion Gap 8 mmol/L (5-15) 10 mmol/L (5-15) Blood Urea Nitrogen 78 mg/dL (7-18) 50 mg/dL (7-18) Creatinine 2.6 MG/DL (0.55-1.30) 1.9 MG/DL (0.55-1.30) Estimat Glomerular Filtration Rate 19.7 mL/min (>60) 28.3 mL/min (>60) Glucose Level 74 MG/DL (74-106) 105 MG/DL (74-106) Calcium Level 8.7 MG/DL (8.5-10.1) 8.1 MG/DL (8.5-10.1) Phosphorus Level 5.2 MG/DL (2.5-4.9) 4.0 MG/DL (2.5-4.9) Magnesium Level 2.5 MG/DL (1.8-2.4) 2.2 MG/DL (1.8-2.4) Total Bilirubin 0.3 MG/DL (0.2-1.0) 0.3 MG/DL (0.2-1.0) Aspartate Amino Transf (AST/SGOT) 21 U/L (15-37) 13 U/L (15-37) Alanine Aminotransferase (ALT/SGPT) 12 U/L (12-78) 7 U/L (12-78) Alkaline Phosphatase 139 U/L (46-116) 145 U/L (46-116) C-Reactive Protein, Quantitative 16.7 mg/dL (0.00-0.90) 17.2 mg/dL (0.00-0.90) Pro-B-Type Natriuretic Peptide > 58547 pg/mL (0-125) > 31134 pg/mL (0-125) Total Protein 6.4 G/DL (6.4-8.2) 6.7 G/DL (6.4-8.2) Albumin 1.7 G/DL (3.4-5.0) 1.8 G/DL (3.4-5.0) Globulin 4.7 g/dL 4.9 g/dL Albumin/Globulin Ratio 0.4 (1.0-2.7) 0.4 (1.0-2.7) Random Vancomycin Level 21.7 ug/mL Random Gentamicin Level 0.8 ug/mL Test 10/01/19 07:07 10/02/19 04:25 Arterial Blood pH 7.470 (7.350-7.450) Arterial Blood Partial Pressure CO2 40.4 mmHg (35.0-45.0) Arterial Blood Partial Pressure O2 68.4 mmHg (75.0-100.0) Arterial Blood HCO3 28.7 mmol/L (22.0-26.0) Arterial Blood Oxygen Saturation 93.8 % (95-100) Arterial Blood Base Excess 4.7 (-2-2) Rojas Test Positive White Blood Count 7.1 K/UL (4.8-10.8) Red Blood Count 2.96 M/UL (4.20-5.40) Hemoglobin 9.2 G/DL (12.0-16.0) Hematocrit 28.5 % (37.0-47.0) Mean Corpuscular Volume 97 FL (80-99) Mean Corpuscular Hemoglobin 31.1 PG (27.0-31.0) Mean Corpuscular Hemoglobin Concent 32.2 G/DL (32.0-36.0) Red Cell Distribution Width 14.7 % (11.6-14.8) Platelet Count 304 K/UL (150-450) Mean Platelet Volume 5.8 FL (6.5-10.1) Neutrophils (%) (Auto) 71.6 % (45.0-75.0) Lymphocytes (%) (Auto) 18.3 % (20.0-45.0) Monocytes (%) (Auto) 5.2 % (1.0-10.0) Eosinophils (%) (Auto) 4.4 % (0.0-3.0) Basophils (%) (Auto) 0.6 % (0.0-2.0) Sodium Level 139 MMOL/L (136-145) Potassium Level 3.2 MMOL/L (3.5-5.1) Chloride Level 102 MMOL/L (98-107) Carbon Dioxide Level 30 MMOL/L (21-32) Anion Gap 7 mmol/L (5-15) Blood Urea Nitrogen 61 mg/dL (7-18) Creatinine 2.2 MG/DL (0.55-1.30) Estimat Glomerular Filtration Rate 23.9 mL/min (>60) Glucose Level 90 MG/DL (74-106) Calcium Level 8.7 MG/DL (8.5-10.1) Phosphorus Level 4.0 MG/DL (2.5-4.9) Magnesium Level 2.3 MG/DL (1.8-2.4) Total Bilirubin 0.3 MG/DL (0.2-1.0) Aspartate Amino Transf (AST/SGOT) 19 U/L (15-37) Alanine Aminotransferase (ALT/SGPT) 10 U/L (12-78) Alkaline Phosphatase 131 U/L (46-116) C-Reactive Protein, Quantitative 11.9 mg/dL (0.00-0.90) Pro-B-Type Natriuretic Peptide > 94768 pg/mL (0-125) Total Protein 6.4 G/DL (6.4-8.2) Albumin 1.6 G/DL (3.4-5.0) Globulin 4.8 g/dL Albumin/Globulin Ratio 0.3 (1.0-2.7) Height (Feet): 5 Height (Inches): 5.00 Weight (Pounds): 135 Objective Physical Exam: Vitals: reviewed General: NAD HEENT: nc, at Neck: supple ++tracn/vent Chest: clear breath sounds bilaterally Cardiovascular: RRR, no s3, s4 Abdomen: soft, nontender, nd +gtube Extremities: no cce, normal range of motion Neuro: alert Evan Muhammad MD Oct 02, 2019 07:20
--- NOTE | 2019-10-02 07:38 | Infectious Diseases Prog Note ---
Assessment/Plan 49yo F with: Acute hypoxic resp failure: Now on vent, worsening, FiO2 100% > 80% 09/27 Pneumonia, COVID19 neg x3 - worsening MDR PsA pneumonia 09/29 CXR: Bilateral edema versus infiltrates appears slightly worse than on the prior study. There is probably some pleural fluid on the left. 09/26 S/P thoracentesis, 900cc removed, only 67 WBC in fluid analysis, unlikely empyema 09/26 CXR: Worsening R perihilar opacity 09/26 BCx NTD 09/24 CXR: Previously demonstrated right lateral basilar lucency is no longer evident, was presumably a skin fold artifact. Bilateral infiltrates and left pleural effusion are probably unchanged allowing for slight differences in technique. 09/22 Resp cx + MDR PsA (S-gent; I-colistin; R-levofloxacin, Zosyn, angelo) 09/22 BCx NTD 09/22 CXR: worsening BL pna 09/22 UA w/ persistent pyuria, now on HD, UCx +VRE, most likely colonizer as improving wo tx for this 09/19 V/Q scan, low probability of PE 09/18 Rapid COVID PCR neg 09/18 CT chest: Markedly suboptimal examination due to lack of IV contrast material. Bilateral pleural effusions, right greater than left, with bilateral lower lobe consolidation or volume loss. Ground glass densities in the upper lobes bilaterally. This is not specific. Tracheostomy. Increased superior mediastinal density. Stability of adenopathy cannot be excluded. Atherosclerotic change. Gastrostomy. Ascites. Left renal stent with left hydronephrosis and renal atrophy. 09/17 Chest US: Trace right and small left pleural effusions. No safe window identified for bedside thoracentesis. Note that the majority of the left pleural effusion is subpulmonic. 09/16 CXR: Worsening of right lung infiltrates and right effusion. V. duplex: NO DVT D-dimer elevated 09/15 Rapid COVID PCR neg 09/15 Sp cx ESBL P. mirablis 09/14 CXR: Bilateral airspace opacities, preferentially involving the right lung, consistent with multifocal infiltrate. Trace bilateral pleural effusions. No pneumothorax. Rapid COVID PCR neg GPC bacteremia, real vs contaminant; does have hx of infected PPM- could be a possibility- ro endocarditis 09/14 Bcx / S. epidermis; 09/15 Bcx NTD 2d echo: no vegetations seen UTI 09/14 u/a wbc tnct, nit neg, leuk +3; ucx >100k MDR P. stuarti (S Ceftriaxone, Meropenem) 09/22 UA w/ ongoing pyuria, unchanged Unstageable sacral ulceration Afebrile Leukocytosis, mild; fluctuates bt 12-13 JAVIER on CKD --> now on HD Renal US: Limited exam due to abdominal ascites and shadowing from bowel gas. CT recommended for more sensitive evaluation. Moderate right hydronephrosis. Increased renal parenchymal echogenicity suggesting intrinsic/ medical renal disease. Question indwelling left ureteral stent versus artifact. Bladder not visualized. 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 epi-11/2018, sp > 6weeks IV vancomycin 11/27 SP ABBIE: no evidence for vegetation on any of the valves 11/26/18 SP PPM removal: OR findings:The fibrous capsule enclosing the generator was then opened and there was a [id number] amount of yellowish fluid drainage. The generator was then removed.Atrial and ventricular leads were detached. The necrotic tissue of the pocket was then removed and the pocket was flushed with an antibiotic solution. Capsule, wound tissue and lead tip cx: Neg 2d echo: no vegetation seen US chest: 4.6 x 3.4 x 0.9 cm hypoechoic/anechoic area overlying left chest pacemaker power pack. This could represent either a discrete fluid collection or a focal area of very edematous tissue. Infected fluid pocket also possible. 11/18 Bcx 3/4 S. epi; 11/20 Bcx neg; 11/24 Bcx Neg; 11/27 Bcx Neg Hx of PNA 11/2019? sp cx PsA (arnett S), ABC (I Ceftriaxone; otherwise negative) Sp cx MRSA, ABC (I Ceftriaxone; otherwise S) PMH: Afib HTN Dysphagia sp GT Aortic dissection s/p repair 2017, S/p PPM Parkinson's Disease Schizophrenia Anxiety COPD Chronic resp failure s/p trach Hx of tracheal bleeding [place] resident ([facility]) Plan: Cont Zerbaxa #5/6 (abx day #6/7) for MDR PsA pneumonia Cont gentamicin per pharmacy #6/7 for now as improved and awaiting sensitivities for Zerbaxa Trend resp status, leukocytosis D/w micro about sending MDR PsA out for further sensi to Zerbaxa and Avycaz, [facility] lab order signed, sent out of Tuesday 09/26, d/w Micro today, won't have results until 10/06 ([phone]) Aggressive volume removal as tolerated by HD, BNP >35,000 09/29 SP vanco #15 for S.epi in BCx 09/27 SP aneglo #13 09/16 SP Cefepime #3, Levaquin #3 Monitor CBC/CMP, temperatures ICU/ trach/ peg care Aspiration precautions D/w RN Thank you for this consultation. Will continue to follow along with you. Subjective Allergies: Coded Allergies: No Known Allergies (Unverified , 10/10/17) AF Remains on vent WBC 7 Objective Last 24 Hour Vital Signs Date Time Temp Pulse Resp B/P (MAP) Pulse Ox O2 Delivery O2 Flow Rate FiO2 10/02/19 07:00 70 22 154/63 (93) 100 10/02/19 07:00 22 154/63 Mechanical Ventilator 60 10/02/19 06:45 71 21 148/61 (90) 97 10/02/19 06:30 74 22 152/62 (92) 100 10/02/19 06:15 73 21 143/60 (87) 98 10/02/19 06:00 69 21 143/63 (89) 98 10/02/19 06:00 20 143/60 Mechanical Ventilator 60 10/02/19 05:45 156/67 10/02/19 05:45 69 156/67 10/02/19 05:45 69 21 152/55 (87) 98 10/02/19 05:30 70 21 152/67 (95) 99 10/02/19 05:15 67 20 152/62 (92) 97 10/02/19 05:03 66 20 60 10/02/19 05:00 20 158/61 Mechanical Ventilator 60 10/02/19 05:00 66 20 158/61 (93) 97 10/02/19 04:45 64 20 146/62 (90) 97 10/02/19 04:30 66 20 139/61 (87) 97 10/02/19 04:15 65 20 156/62 (93) 98 10/02/19 04:00 Mechanical Ventilator Mechanical Ventilator 10/02/19 04:00 20 156/62 Mechanical Ventilator 60 8/19/20 04:00 60 10/02/19 04:00 98.8 65 19 164/65 (98) 99 10/02/19 03:45 66 10/02/19 03:45 66 20 150/62 (91) 98 10/02/19 03:30 67 20 60 10/02/19 03:30 67 20 153/64 (93) 98 10/02/19 03:15 72 21 162/67 (98) 99 10/02/19 03:00 73 22 160/71 (100) 99 10/02/19 03:00 20 162/67 Mechanical Ventilator 60 10/02/19 02:45 71 23 167/63 (97) 97 10/02/19 02:30 73 24 153/59 (90) 97 10/02/19 02:15 71 22 158/62 (94) 97 10/02/19 02:00 71 23 163/61 (95) 97 10/02/19 02:00 20 163/61 Mechanical Ventilator 60 10/02/19 01:45 70 22 168/63 (98) 98 10/02/19 01:30 72 21 161/65 (97) 97 10/02/19 01:15 72 21 167/65 (99) 96 10/02/19 01:00 73 22 165/64 (97) 96 10/02/19 01:00 24 165/64 Mechanical Ventilator 60 10/02/19 00:45 67 20 144/58 (86) 97 10/02/19 00:41 71 22 100 Mechanical Ventilator 60 72 23 74 10/02/19 00:30 67 24 173/64 (100) 94 10/02/19 00:15 67 19 154/60 (91) 93 10/02/19 00:07 20 153/55 Mechanical Ventilator 60 10/02/19 00:06 153/55 10/02/19 00:00 21 154/60 Mechanical Ventilator 60 10/02/19 00:00 99.1 65 23 153/55 (87) 95 10/02/19 00:00 Mechanical Ventilator Mechanical Ventilator 10/01/19 23:45 64 20 161/61 (94) 95 10/01/19 23:30 65 20 167/57 (93) 96 10/01/19 23:15 63 10/01/19 23:15 63 20 170/60 (96) 97 10/01/19 23:00 63 19 171/62 (98) 97 1820 23:00 20 161/61 Mechanical Ventilator 60 1820 22:45 65 18 166/61 (96) 96 1820 22:30 76 25 169/64 (99) 96 18/20 22:30 69 21 60 1820 22:15 70 20 149/56 (87) 95 1820 22:00 20 149/56 Mechanical Ventilator 60 20 22:00 67 20 157/63 (94) 97 1820 21:45 66 20 169/58 (95) 98 1820 21:30 67 20 173/60 (97) 98 20 21:23 66 175/63 1820 21:18 65 20 60 1820 21:15 70 21 175/63 (100) 97 20 21:00 21 175/63 Mechanical Ventilator 60 20 21:00 70 21 167/66 (99) 95 20 20:45 75 21 160/59 (92) 95 1820 20:38 66 171/57 1820 20:30 68 21 171/57 (95) 93 1820 20:15 65 20 166/58 (94) 97 20 20:00 98.9 66 23 175/62 (99) 95 1820 20:00 Mechanical Ventilator Mechanical Ventilator 20 20:00 20 166/58 Mechanical Ventilator 60 1820 20:00 60 1820 19:45 63 20 180/62 (101) 97 1820 19:30 66 20 100 Mechanical Ventilator 60 72 21 60 18/20 19:30 65 21 168/57 (94) 95 18/20 19:17 65 18/20 19:15 66 20 155/59 (91) 96 18/20 19:00 20 155/59 Mechanical Ventilator 60 18/20 19:00 70 23 155/56 (89) 95 18/20 18:30 73 25 171/61 (97) 95 18/20 18:00 66 21 159/57 (91) 94 18/20 17:47 158/55 8/18/20 17:35 65 21 158/55 (89) 95 10/01/19 17:00 66 20 152/56 (88) 95 10/01/19 16:38 69 20 70 10/01/19 16:30 66 21 156/73 (100) 95 10/01/19 16:00 60 10/01/19 16:00 72 10/01/19 16:00 Mechanical Ventilator Mechanical Ventilator 10/01/19 16:00 99.0 64 20 122/49 (73) 96 10/01/19 15:01 64 20 70 10/01/19 15:00 62 20 125/54 (77) 96 10/01/19 14:35 20 152/54 Mechanical Ventilator 10/01/19 14:30 63 20 132/54 (80) 96 10/01/19 14:00 66 19 135/55 (81) 99 10/01/19 13:29 72 137/53 10/01/19 13:00 72 18 136/57 (83) 98 10/01/19 12:57 71 23 100 Mechanical Ventilator 70 73 20 70 10/01/19 12:45 73 21 146/58 (87) 100 10/01/19 12:30 69 20 154/64 (94) 97 10/01/19 12:15 67 20 142/56 (84) 99 10/01/19 12:03 115/69 10/01/19 12:00 61 10/01/19 12:00 60 10/01/19 12:00 98.6 59 20 122/49 (73) 96 10/01/19 12:00 20 T-piece 10/01/19 12:00 Mechanical Ventilator Mechanical Ventilator 10/01/19 11:09 61 20 70 10/01/19 11:00 62 20 118/45 (69) 96 10/01/19 10:30 62 20 126/51 (76) 96 10/01/19 10:00 62 16 117/46 (69) 99 10/01/19 09:30 64 20 129/50 (76) 100 10/01/19 09:22 63 20 70 10/01/19 09:00 67 19 127/46 (73) 99 10/01/19 08:57 69 136/54 10/01/19 08:30 66 20 137/51 (79) 97 10/01/19 08:00 61 10/01/19 08:00 65 19 160/62 (94) 89 10/01/19 08:00 Mechanical Ventilator Mechanical Ventilator Height (Feet): 5 Height (Inches): 5.00 Weight (Pounds): 135 Gen: Older woman, sedated on vent Pulm: BL chest rise on vent Abd: Soft, non-distended Ext: No c/c Neuro: Sedated Laboratory Tests Test 10/02/19 04:25 White Blood Count 7.1 K/UL (4.8-10.8) Red Blood Count 2.96 M/UL (4.20-5.40) L Hemoglobin 9.2 G/DL (12.0-16.0) L Hematocrit 28.5 % (37.0-47.0) L Mean Corpuscular Volume 97 FL (80-99) Mean Corpuscular Hemoglobin 31.1 PG (27.0-31.0) H Mean Corpuscular Hemoglobin Concent 32.2 G/DL (32.0-36.0) Red Cell Distribution Width 14.7 % (11.6-14.8) Platelet Count 304 K/UL (150-450) Mean Platelet Volume 5.8 FL (6.5-10.1) L Neutrophils (%) (Auto) 71.6 % (45.0-75.0) Lymphocytes (%) (Auto) 18.3 % (20.0-45.0) L Monocytes (%) (Auto) 5.2 % (1.0-10.0) Eosinophils (%) (Auto) 4.4 % (0.0-3.0) H Basophils (%) (Auto) 0.6 % (0.0-2.0) Sodium Level 139 MMOL/L (136-145) Potassium Level 3.2 MMOL/L (3.5-5.1) L Chloride Level 102 MMOL/L (98-107) Carbon Dioxide Level 30 MMOL/L (21-32) Anion Gap 7 mmol/L (5-15) Blood Urea Nitrogen 61 mg/dL (7-18) H Creatinine 2.2 MG/DL (0.55-1.30) H Estimat Glomerular Filtration Rate 23.9 mL/min (>60) Glucose Level 90 MG/DL (74-106) Calcium Level 8.7 MG/DL (8.5-10.1) Phosphorus Level 4.0 MG/DL (2.5-4.9) Magnesium Level 2.3 MG/DL (1.8-2.4) Total Bilirubin 0.3 MG/DL (0.2-1.0) Aspartate Amino Transf (AST/SGOT) 19 U/L (15-37) Alanine Aminotransferase (ALT/SGPT) 10 U/L (12-78) L Alkaline Phosphatase 131 U/L (46-116) H C-Reactive Protein, Quantitative 11.9 mg/dL (0.00-0.90) H Pro-B-Type Natriuretic Peptide > 81944 pg/mL (0-125) H Total Protein 6.4 G/DL (6.4-8.2) Albumin 1.6 G/DL (3.4-5.0) L Globulin 4.8 g/dL Albumin/Globulin Ratio 0.3 (1.0-2.7) L Current Medications Medications (Trade) Dose Ordered Sig/Penny Route PRN Reason Start Time Stop Time Status Last Admin Dose Admin Acetaminophen (Tylenol) 325 mg Q6H PRN GT Temp >100.5 09/23/19 10:45 10/23/19 10:44 09/23/19 18:55 Albuterol/ Ipratropium (Albuterol/ Ipratropium) 3 ml Q6HRT HHN 09/30/19 13:00 10/04/19 12:59 10/02/19 00:41 Ceftolozane/ Tazobactam 0.45 gm/Sodium Chloride 110 ml @ 110 mls/hr Q8H IV 09/28/19 20:00 10/05/19 19:59 10/02/19 03:36 Chlorhexidine Gluconate (Ling-Hex 2%) 1 applic DAILY@2000 TOPIC 09/23/19 20:00 12/22/19 19:59 10/01/19 20:37 Diltiazem HCl (Cardizem Tab) 30 mg EVERY 8 HOURS GT 09/25/19 14:00 10/15/19 11:59 10/02/19 05:45 Docusate Sodium (Colace) 100 mg Q8H GT 09/29/19 08:30 10/29/19 08:29 10/02/19 00:09 Epoetin Gelacio (Epoetin Gelacio(ESRD on dialysis)) 10,000 unit MON-MON-MON SUBQ 09/25/19 21:00 12/24/19 20:59 09/30/19 21:34 Fentanyl Citrate 250 ml @ 0 mls/hr Q24H IV 10/01/19 14:30 10/03/19 14:29 10/02/19 00:07 Gentamicin Protocol (Gentamicin pharmacy to dose) 1 ea DAILY PRN MISC Per rx protocol 09/28/19 13:15 10/28/19 13:14 Heparin Sodium (Porcine) (Heparin 5000 units/ml) 5,000 units EVERY 12 HOURS SUBQ 09/17/19 21:00 10/30/19 08:59 10/01/19 20:39 Hydralazine HCl (Apresoline) 10 mg Q4H PRN IV BP over 160 systolic 09/17/19 11:15 12/14/19 11:14 09/24/19 15:55 Hydralazine HCl (Apresoline) 50 mg Q6HR GT 09/26/19 18:00 12/15/19 17:59 10/02/19 05:45 Lansoprazole (Prevacid) 30 mg Q12HR GT 09/27/19 21:00 10/27/19 20:59 10/01/19 20:37 Metoclopramide HCl (Reglan) 10 mg Q8H IVP 09/29/19 14:00 10/29/19 13:59 10/02/19 05:45 Metoprolol Tartrate (Lopressor) 25 mg EVERY 12 HOURS GT 09/25/19 21:00 12/14/19 20:59 10/01/19 20:38 Midazolam HCl (Versed 2mg/2ml vial) 1 mg Q4H PRN IVP For Anxiety 09/21/19 09:30 12/20/19 09:29 09/27/19 08:57 Olanzapine (ZyPREXA) 2.5 mg DAILY GT 09/18/19 09:00 10/30/19 08:59 10/01/19 08:57 Polyethylene Glycol (Miralax) 17 gm BEDTIME ORAL 10/01/19 21:00 10/31/19 20:59 10/01/19 20:37 Sertraline HCl (Zoloft) 100 mg BEDTIME GT 09/17/19 21:00 9/1/20 20:59 10/01/19 20:38 Sorbitol (sorbitoL) 30 ml EVERY 6 HOURS PRN GT Constipation 09/29/19 18:00 10/29/19 17:59 10/01/19 00:44 Tramadol HCl (Ultram) 25 mg Q6HR GT 09/27/19 09:45 10/04/19 09:44 10/02/19 05:45 Ro Pack M.D. Oct 02, 2019 07:38
--- NOTE | 2019-10-02 08:00 | Progress Note ---
DATE: 10/01/2019 SUBJECTIVE: Patient is awake, alert, afebrile, and hemodynamically stable. PHYSICAL EXAMINATION: VITAL SIGNS: Blood pressure 152/66, pulse is 66, respirations of 20, temperature 99.0. HEENT: Eyes were normal. ENT, mucous membranes were moist and intact. NECK: Supple with no JVD without lymph nodes. Tracheostomy site is clean. LUNGS: Clear without rhonchi, rales, or wheezing. HEART: Normal sounds with regular beats. There is no tachycardia at rest. ABDOMEN: Soft, nontender with normal bowel sounds. Gastrostomy site is clean. EXTREMITIES: Warm without cyanosis, clubbing, or edema. The trach was changed to cuffed trach several days ago. LABORATORY AND DIAGNOSTIC DATA: Hemoglobin is 9.9, hematocrit 28.3 with MCV of 97, WBC of 7.4, and platelets 287. Her BUN and creatinine are 50 and 1.9 respectively. It was 78 and 2.6 yesterday. Her sodium is 138, potassium 3.2, chloride 99, CO2 is 29. Magnesium is 2.2, phosphorus is 4. CRP remained high at 17.2 and proBNP remained above 35,000. Albumin is 1.8. Total protein 6.7. It was 1.7 and 6.4 yesterday. Her chest x-ray showed gastrostomy was positioned in left jugular . Bilateral interstitial markings and edema are present, but appears significantly improved at the lower portion of the lungs. There is bilateral pleural effusion, which is small. Impression, this x-ray shows some improvement as compared to the previous exam. IMPRESSION: Patient with edema. She is now on hemodialysis and reduction therapy. Repeat laboratory tests will be done in the a.m. She continued to be on fentanyl drip and midazolam drip as before. Lucas Dong M.D. DR: RENY JOB#: [id number] CC:
[2019-10-02] MEDS: OLANZapine 2.5mg tab GT SCH (09:38)
--- NOTE | 2019-10-02 09:38 | Pulmonolgy Critical Care Note ---
Critical Care - Asmt/Plan Assessment/Plan: ASSESSMENT Acute on chronic hypoxemic respiratory failure ( trach dependent), now on vent Tracheostomy status, s/p change to cuffed trach Sepsis Pulmonary edema Pleural effusion -worsening left pl effusion s/p thoracentesis L pleural effusion 09/26 -900 ml Pneumonia with MDR Pseudomonas UTI CHF ? cardiorenal COPD Acute kidney injury and chronic kidney disease-requiring start of HD Hypertension Atrial fibrillation Moderate pulm HTN Moderate AR Dysphagia , feeding by G-tube Electrolyte abnormalities Anemia Toxic metabolic encephalopathy likely due to sepsis and ARF HTN PAF PLAN OF CARE ICU on vent AC trach changed 8/4 pm from uncuffed to cuffed Shiley#[address] chest w/out contrast: - Bilateral pleural effusions, right greater than left, with bilateral lower lobe consolidation or volume loss. -Ground-glass densities in the upper lobes bilaterally. This is not specific. -Tracheostomy. -Increased superior mediastinal density. Stability of adenopathy cannot be excluded. -Atherosclerotic change. -Gastrostomy. -Ascites. -Left renal stent with left hydronephrosis and renal atrophy. VQ scan -> low probability for PE worsening resp status was due to need for HD, now after HD started, resp status improving, down to PEEP 5 and AC 20 trach care , pulmonary toilet ABG this am on FiO2 60% no hypoxia, titrate Fio2 to keep sat above 92% fup with ABG and CXR in am Mucomyst was dc given lots of thin secretions, continue Duoneb prn rapid COVID 19 NGT x3 sedation with fentanyl gtt and Versed prn-> off Versed and on weaning from Fentanyl as tolerated s/p thoracentesis L pleural effusion 09/26 am -> 900 ml fluid analysis noted, fup with fluid cx ( apparently never sent despite orders) cytology -> NGT, no malignant cells aspiration precautions venous Duplex BLE -> NGT DVT prophylaxis pulm toilet, abx as per ID- s/p gent x 1, now on Vanco and Zerbaxa SCX 8/3 + Proteus, SCX 8/10 Pseudomonas MDR UCX 8/2 + Providencia , UCX 8/ VRE 10-20 K only BCX 8/2 Staph epidermidis, BCX 8/ NGT , BCX 8 and 09/26 - NGTD monitor volumes was on gentle IVF-> dc s/p prior diuretic-Lasix require initiation of HD close monitoring of volumes, renal parameters and lytes -per nephro recs ECHO with pEF , moderate pulm HTN and moderate AR BP management with current regimen of BB, Cardizem and Hydralazine, remains in SR monitor HH with goal to keep Hgb >7, heme on board on EPO supportive care pain management wound care bowel regimen thank you for a consult Critical Care - Objective Last 24 Hour Vital Signs Date Time Temp Pulse Resp B/P (MAP) Pulse Ox O2 Delivery O2 Flow Rate FiO2 10/02/19 09:20 73 24 60 10/02/19 09:00 72 20 163/66 (98) 94 10/02/19 08:45 75 20 163/68 (99) 96 10/02/19 08:30 70 20 147/64 (91) 95 10/02/19 08:15 80 19 152/65 (94) 96 10/02/19 08:00 98.9 70 21 164/73 (103) 100 10/02/19 08:00 60 10/02/19 07:45 69 21 166/74 (104) 99 10/02/19 07:30 74 23 157/63 (94) 100 10/02/19 07:28 71 24 100 Mechanical Ventilator 60 69 21 60 10/02/19 07:15 68 20 156/64 (94) 100 10/02/19 07:00 70 22 154/63 (93) 100 10/02/19 07:00 22 154/63 Mechanical Ventilator 60 10/02/19 06:45 71 21 148/61 (90) 97 10/02/19 06:30 74 22 152/62 (92) 100 10/02/19 06:15 73 21 143/60 (87) 98 10/02/19 06:00 69 21 143/63 (89) 98 10/02/19 06:00 20 143/60 Mechanical Ventilator 60 10/02/19 05:45 156/67 10/02/19 05:45 69 156/67 10/02/19 05:45 69 21 152/55 (87) 98 10/02/19 05:30 70 21 152/67 (95) 99 10/02/19 05:15 67 20 152/62 (92) 97 10/02/19 05:03 66 20 60 10/02/19 05:00 20 158/61 Mechanical Ventilator 60 10/02/19 05:00 66 20 158/61 (93) 97 10/02/19 04:45 64 20 146/62 (90) 97 10/02/19 04:30 66 20 139/61 (87) 97 10/02/19 04:15 65 20 156/62 (93) 98 10/02/19 04:00 Mechanical Ventilator Mechanical Ventilator 10/02/19 04:00 20 156/62 Mechanical Ventilator 60 10/02/19 04:00 60 10/02/19 04:00 98.8 65 19 164/65 (98) 99 10/02/19 03:45 66 10/02/19 03:45 66 20 150/62 (91) 98 10/02/19 03:30 67 20 60 10/02/19 03:30 67 20 153/64 (93) 98 10/02/19 03:15 72 21 162/67 (98) 99 10/02/19 03:00 73 22 160/71 (100) 99 10/02/19 03:00 20 162/67 Mechanical Ventilator 60 10/02/19 02:45 71 23 167/63 (97) 97 10/02/19 02:30 73 24 153/59 (90) 97 10/02/19 02:15 71 22 158/62 (94) 97 10/02/19 02:00 71 23 163/61 (95) 97 10/02/19 02:00 20 163/61 Mechanical Ventilator 60 10/02/19 01:45 70 22 168/63 (98) 98 10/02/19 01:30 72 21 161/65 (97) 97 10/02/19 01:15 72 21 167/65 (99) 96 10/02/19 01:00 73 22 165/64 (97) 96 10/02/19 01:00 24 165/64 Mechanical Ventilator 60 10/02/19 00:45 67 20 144/58 (86) 97 10/02/19 00:41 71 22 100 Mechanical Ventilator 60 72 23 74 10/02/19 00:30 67 24 173/64 (100) 94 10/02/19 00:15 67 19 154/60 (91) 93 10/02/19 00:07 20 153/55 Mechanical Ventilator 60 10/02/19 00:06 153/55 8/19/20 00:00 21 154/60 Mechanical Ventilator 60 20 00:00 99.1 65 23 153/55 (87) 95 20 00:00 Mechanical Ventilator Mechanical Ventilator 20 23:45 64 20 161/61 (94) 95 20 23:30 65 20 167/57 (93) 96 1820 23:15 63 1820 23:15 63 20 170/60 (96) 97 20 23:00 63 19 171/62 (98) 97 20 23:00 20 161/61 Mechanical Ventilator 60 20 22:45 65 18 166/61 (96) 96 10/01/19 22:30 76 25 169/64 (99) 96 20 22:30 69 21 60 20 22:15 70 20 149/56 (87) 95 20 22:00 20 149/56 Mechanical Ventilator 60 10/01/19 22:00 67 20 157/63 (94) 97 10/01/19 21:45 66 20 169/58 (95) 98 20 21:30 67 20 173/60 (97) 98 20 21:23 66 175/63 20 21:18 65 20 60 10/01/19 21:15 70 21 175/63 (100) 97 1820 21:00 21 175/63 Mechanical Ventilator 60 1820 21:00 70 21 167/66 (99) 95 20 20:45 75 21 160/59 (92) 95 20 20:38 66 171/57 18/20 20:30 68 21 171/57 (95) 93 20 20:15 65 20 166/58 (94) 97 20 20:00 98.9 66 23 175/62 (99) 95 1820 20:00 Mechanical Ventilator Mechanical Ventilator 1820 20:00 20 166/58 Mechanical Ventilator 60 18/20 20:00 60 818/20 19:45 63 20 180/62 (101) 97 20 19:30 66 20 100 Mechanical Ventilator 60 72 21 60 18/20 19:30 65 21 168/57 (94) 95 8/18/20 19:17 65 20 19:15 66 20 155/59 (91) 96 10/01/19 19:00 20 155/59 Mechanical Ventilator 60 10/01/19 19:00 70 23 155/56 (89) 95 20 18:30 73 25 171/61 (97) 95 10/01/19 18:00 66 21 159/57 (91) 94 10/01/19 18:00 21 159/57 Mechanical Ventilator 60 10/01/19 18:00 23 Mechanical Ventilator 10/01/19 17:47 158/55 10/01/19 17:35 65 21 158/55 (89) 95 10/01/19 17:00 66 20 152/56 (88) 95 10/01/19 17:00 20 152/56 Mechanical Ventilator 60 10/01/19 17:00 20 Mechanical Ventilator 10/01/19 16:38 69 20 70 10/01/19 16:30 66 21 156/73 (100) 95 10/01/19 16:00 60 10/01/19 16:00 72 10/01/19 16:00 20 122/49 Mechanical Ventilator 60 10/01/19 16:00 20 Mechanical Ventilator 10/01/19 16:00 Mechanical Ventilator Mechanical Ventilator 10/01/19 16:00 99.0 64 20 122/49 (73) 96 10/01/19 15:01 64 20 70 10/01/19 15:00 20 122/49 Mechanical Ventilator 60 10/01/19 15:00 20 125/54 Mechanical Ventilator 60 10/01/19 15:00 20 125/54 Mechanical Ventilator 60 10/01/19 15:00 20 10/01/19 15:00 20 10/01/19 15:00 20 Mechanical Ventilator 10/01/19 15:00 62 20 125/54 (77) 96 10/01/19 14:35 20 152/54 Mechanical Ventilator 10/01/19 14:35 19 10/01/19 14:30 63 20 132/54 (80) 96 10/01/19 14:00 19 10/01/19 14:00 19 10/01/19 14:00 66 19 135/55 (81) 99 10/01/19 13:29 72 137/53 10/01/19 13:00 72 18 136/57 (83) 98 8/18/20 13:00 18 Mechanical Ventilator 10/01/19 12:57 71 23 100 Mechanical Ventilator 70 73 20 70 10/01/19 12:45 73 21 146/58 (87) 100 10/01/19 12:30 69 20 154/64 (94) 97 10/01/19 12:15 67 20 142/56 (84) 99 10/01/19 12:03 115/69 10/01/19 12:00 61 10/01/19 12:00 60 10/01/19 12:00 98.6 59 20 122/49 (73) 96 10/01/19 12:00 20 T-piece 10/01/19 12:00 Mechanical Ventilator Mechanical Ventilator 10/01/19 11:09 61 20 70 10/01/19 11:00 62 20 118/45 (69) 96 10/01/19 10:30 62 20 126/51 (76) 96 10/01/19 10:00 62 16 117/46 (69) 99 10/01/19 10:00 16 Mechanical Ventilator 10/01/19 10:00 19 146/46 Mechanical Ventilator 70 Objective: General Appearance: no apparent distress, bedridden middle age chronically ill looking female on vent AC 500-20-60% PEEP 5, awake and responsive with nodding her head Lines, tubes and drains: left jugular HD catheter HEENT: normocephalic, atraumatic, anicteric, trach - Shiley #7 cuffed XLT, secretions moderate amount, yellow color , thick consistency Respiratory/Chest: no accessory muscle use, few scattered rhonchi bilaterally , Cardiovascular/Chest: normal rate, regular rhythm - SR on tele Abdomen: normal bowel sounds, non tender, soft, G tube Genitourinary/Rectal: [place] Extremities: no edema Skin Exam: warm/dry, multiple tattoos all over the body Neurologic: abnormal gait, sedated Musculoskeletal: atrophy - BLE Critical Care - Subjective ROS Limited/Unobtainable: Yes Interval Events: remains afebrile, no leukocytosis FIO2 down to 60%, ABG stable CXR 09/30 with small improvement off Versed and being weaned from Fentanyl gtt Condition: critical IV Access: central - L jugular HD catheter intact EKG Rhythm: Sinus Rhythm FI02: 60 Vent Support Breath Rate: 20 Vent Support Mode: AC Vent Tidal Volume: 500 Sputum Amount: Moderate PEEP: 5.0 PIP: 15 Drips: Fentanyl gtt 120 mcg/hr Tube Feeding Amount: 40 I&O: Intake and Output 10/01/19 10/02/19 19:00 07:00 Intake Total 1241 ml 1922.6 ml Output Total 227 ml 355 ml Balance 1014 ml 1567.6 ml IV Total 701 ml 1352.6 ml Tube Feeding 480 ml 480 ml Other 60 ml 90 ml Output Urine Total 227 ml 355 ml CXR: CXR 09/30 -Bilateral interstitial and airspace edema, perhaps slightly improved since previous day's exam. Yara Castro [employer] Oct 02, 2019 09:38
[2019-10-02] MEDS: Heparin 5000 units/ml inj SUBQ SCH ×2 (09:39→20:47)
--- NOTE | 2019-10-02 10:10 | General Progress Note ---
Assessment/Plan Problem List: (1) S/P aortic dissection repair ICD Codes: Z98.890 - Other specified postprocedural states SNOMED: 058479592, 603910574 (2) Sacral decubitus ulcer, stage IV ICD Codes: L89.154 - Pressure ulcer of sacral region, stage 4 SNOMED: 363383722, 400157653 (3) Anemia ICD Codes: D64.9 - Anemia, unspecified SNOMED: 073680451 (4) GT CLOGGED (5) Feeding by G-tube ICD Codes: Z93.1 - Gastrostomy status SNOMED: 178167806, 460003811 (6) Tracheostomy in place ICD Codes: Z93.0 - Tracheostomy status SNOMED: 936037839 (7) Pacemaker ICD Codes: Z95.0 - Presence of cardiac pacemaker SNOMED: 660212245 (8) Chronic respiratory failure ICD Codes: J96.10 - Chronic respiratory failure, unspecified whether with hypoxia or hypercapnia SNOMED: 78225457 Assessment/Plan: GTF monitor for residuals repeat labs ICU care Subjective ROS Limited/Unobtainable: No Allergies: Coded Allergies: No Known Allergies (Unverified , 10/10/17) Objective Last 24 Hour Vital Signs Date Time Temp Pulse Resp B/P (MAP) Pulse Ox O2 Delivery O2 Flow Rate FiO2 10/02/19 09:38 68 182/64 10/02/19 09:20 73 24 60 10/02/19 09:00 72 20 163/66 (98) 94 10/02/19 08:45 75 20 163/68 (99) 96 10/02/19 08:30 70 20 147/64 (91) 95 10/02/19 08:15 80 19 152/65 (94) 96 10/02/19 08:00 98.9 70 21 164/73 (103) 100 10/02/19 08:00 60 10/02/19 07:45 69 21 166/74 (104) 99 10/02/19 07:30 74 23 157/63 (94) 100 10/02/19 07:28 71 24 100 Mechanical Ventilator 60 69 21 60 10/02/19 07:15 68 20 156/64 (94) 100 10/02/19 07:00 70 22 154/63 (93) 100 10/02/19 07:00 22 154/63 Mechanical Ventilator 60 10/02/19 06:45 71 21 148/61 (90) 97 10/02/19 06:30 74 22 152/62 (92) 100 10/02/19 06:15 73 21 143/60 (87) 98 10/02/19 06:00 69 21 143/63 (89) 98 10/02/19 06:00 20 143/60 Mechanical Ventilator 60 10/02/19 05:45 156/67 10/02/19 05:45 69 156/67 10/02/19 05:45 69 21 152/55 (87) 98 10/02/19 05:30 70 21 152/67 (95) 99 10/02/19 05:15 67 20 152/62 (92) 97 10/02/19 05:03 66 20 60 10/02/19 05:00 20 158/61 Mechanical Ventilator 60 10/02/19 05:00 66 20 158/61 (93) 97 10/02/19 04:45 64 20 146/62 (90) 97 10/02/19 04:30 66 20 139/61 (87) 97 10/02/19 04:15 65 20 156/62 (93) 98 10/02/19 04:00 Mechanical Ventilator Mechanical Ventilator 10/02/19 04:00 20 156/62 Mechanical Ventilator 60 10/02/19 04:00 60 10/02/19 04:00 98.8 65 19 164/65 (98) 99 10/02/19 03:45 66 10/02/19 03:45 66 20 150/62 (91) 98 10/02/19 03:30 67 20 60 10/02/19 03:30 67 20 153/64 (93) 98 10/02/19 03:15 72 21 162/67 (98) 99 10/02/19 03:00 73 22 160/71 (100) 99 10/02/19 03:00 20 162/67 Mechanical Ventilator 60 10/02/19 02:45 71 23 167/63 (97) 97 10/02/19 02:30 73 24 153/59 (90) 97 10/02/19 02:15 71 22 158/62 (94) 97 10/02/19 02:00 71 23 163/61 (95) 97 10/02/19 02:00 20 163/61 Mechanical Ventilator 60 10/02/19 01:45 70 22 168/63 (98) 98 10/02/19 01:30 72 21 161/65 (97) 97 10/02/19 01:15 72 21 167/65 (99) 96 10/02/19 01:00 73 22 165/64 (97) 96 10/02/19 01:00 24 165/64 Mechanical Ventilator 60 10/02/19 00:45 67 20 144/58 (86) 97 10/02/19 00:41 71 22 100 Mechanical Ventilator 60 72 23 74 10/02/19 00:30 67 24 173/64 (100) 94 10/02/19 00:15 67 19 154/60 (91) 93 10/02/19 00:07 20 153/55 Mechanical Ventilator 60 10/02/19 00:06 153/55 10/02/19 00:00 21 154/60 Mechanical Ventilator 60 10/02/19 00:00 99.1 65 23 153/55 (87) 95 10/02/19 00:00 Mechanical Ventilator Mechanical Ventilator 10/01/19 23:45 64 20 161/61 (94) 95 10/01/19 23:30 65 20 167/57 (93) 96 10/01/19 23:15 63 10/01/19 23:15 63 20 170/60 (96) 97 10/01/19 23:00 63 19 171/62 (98) 97 10/01/19 23:00 20 161/61 Mechanical Ventilator 60 10/01/19 22:45 65 18 166/61 (96) 96 10/01/19 22:30 76 25 169/64 (99) 96 10/01/19 22:30 69 21 60 10/01/19 22:15 70 20 149/56 (87) 95 10/01/19 22:00 20 149/56 Mechanical Ventilator 60 10/01/19 22:00 67 20 157/63 (94) 97 10/01/19 21:45 66 20 169/58 (95) 98 10/01/19 21:30 67 20 173/60 (97) 98 10/01/19 21:23 66 175/63 10/01/19 21:18 65 20 60 10/01/19 21:15 70 21 175/63 (100) 97 10/01/19 21:00 21 175/63 Mechanical Ventilator 60 8/18/20 21:00 70 21 167/66 (99) 95 1820 20:45 75 21 160/59 (92) 95 20 20:38 66 171/57 1820 20:30 68 21 171/57 (95) 93 1820 20:15 65 20 166/58 (94) 97 20 20:00 98.9 66 23 175/62 (99) 95 20 20:00 Mechanical Ventilator Mechanical Ventilator 10/01/19 20:00 20 166/58 Mechanical Ventilator 60 1820 20:00 60 1820 19:45 63 20 180/62 (101) 97 10/01/19 19:30 66 20 100 Mechanical Ventilator 60 72 21 60 10/01/19 19:30 65 21 168/57 (94) 95 10/01/19 19:17 65 10/01/19 19:15 66 20 155/59 (91) 96 10/01/19 19:00 20 155/59 Mechanical Ventilator 60 10/01/19 19:00 70 23 155/56 (89) 95 20 18:30 73 25 171/61 (97) 95 20 18:00 66 21 159/57 (91) 94 10/01/19 18:00 21 159/57 Mechanical Ventilator 60 10/01/19 18:00 23 Mechanical Ventilator 10/01/19 17:47 158/55 10/01/19 17:35 65 21 158/55 (89) 95 10/01/19 17:00 66 20 152/56 (88) 95 10/01/19 17:00 20 152/56 Mechanical Ventilator 60 20 17:00 20 Mechanical Ventilator 10/01/19 16:38 69 20 70 20 16:30 66 21 156/73 (100) 95 10/01/19 16:00 60 1820 16:00 72 10/01/19 16:00 20 122/49 Mechanical Ventilator 60 20 16:00 20 Mechanical Ventilator 18 16:00 Mechanical Ventilator Mechanical Ventilator 10/01/19 16:00 99.0 64 20 122/49 (73) 96 10/01/19 15:01 64 20 70 20 15:00 20 122/49 Mechanical Ventilator 60 8/18/20 15:00 20 125/54 Mechanical Ventilator 60 10/01/19 15:00 20 125/54 Mechanical Ventilator 60 10/01/19 15:00 20 10/01/19 15:00 20 10/01/19 15:00 20 Mechanical Ventilator 10/01/19 15:00 62 20 125/54 (77) 96 10/01/19 14:35 20 152/54 Mechanical Ventilator 10/01/19 14:35 19 10/01/19 14:30 63 20 132/54 (80) 96 10/01/19 14:00 19 10/01/19 14:00 19 10/01/19 14:00 66 19 135/55 (81) 99 10/01/19 13:29 72 137/53 10/01/19 13:00 72 18 136/57 (83) 98 10/01/19 13:00 18 Mechanical Ventilator 10/01/19 12:57 71 23 100 Mechanical Ventilator 70 73 20 70 10/01/19 12:45 73 21 146/58 (87) 100 10/01/19 12:30 69 20 154/64 (94) 97 10/01/19 12:15 67 20 142/56 (84) 99 10/01/19 12:03 115/69 10/01/19 12:00 61 10/01/19 12:00 60 10/01/19 12:00 98.6 59 20 122/49 (73) 96 10/01/19 12:00 20 T-piece 10/01/19 12:00 Mechanical Ventilator Mechanical Ventilator 10/01/19 11:09 61 20 70 10/01/19 11:00 62 20 118/45 (69) 96 10/01/19 10:30 62 20 126/51 (76) 96 Intake and Output 10/01/19 10/02/19 19:00 07:00 Intake Total 1241 ml 1922.6 ml Output Total 227 ml 355 ml Balance 1014 ml 1567.6 ml IV Total 701 ml 1352.6 ml Tube Feeding 480 ml 480 ml Other 60 ml 90 ml Output Urine Total 227 ml 355 ml Laboratory Tests 10/02/19 04:25: White Blood Count 7.1, Red Blood Count 2.96L, Hemoglobin 9.2L, Hematocrit 28.5L , Mean Corpuscular Volume 97, Mean Corpuscular Hemoglobin 31.1H, Mean Corpuscular Hemoglobin Concent 32.2, Red Cell Distribution Width 14.7, Platelet Count 304, Mean Platelet Volume 5.8L, Neutrophils (%) (Auto) 71.6, Lymphocytes ( %) (Auto) 18.3L, Monocytes (%) (Auto) 5.2, Eosinophils (%) (Auto) 4.4H, Basophils (%) (Auto) 0.6, Sodium Level 139, Potassium Level 3.2L, Chloride Level 102, Carbon Dioxide Level 30, Anion Gap 7, Blood Urea Nitrogen 61H, Creatinine 2.2H, Estimat Glomerular Filtration Rate 23.9, Glucose Level 90, Calcium Level 8.7, Phosphorus Level 4.0, Magnesium Level 2.3, Total Bilirubin 0.3, Aspartate Amino Transf (AST/SGOT) 19, Alanine Aminotransferase (ALT/SGPT) 10L, Alkaline Phosphatase 131H, C-Reactive Protein, Quantitative 11.9H, Pro-B- Type Natriuretic Peptide > 05492S, Total Protein 6.4, Albumin 1.6L, Globulin 4.8 , Albumin/Globulin Ratio 0.3L 10/02/19 07:57: Arterial Blood pH 7.454H, Arterial Blood Partial Pressure CO2 38.1, Arterial Blood Partial Pressure O2 67.0L, Arterial Blood HCO3 26.1H, Arterial Blood Oxygen Saturation 93.1L, Arterial Blood Base Excess 2.2H, Rojas Test Positive Height (Feet): 5 Height (Inches): 5.00 Weight (Pounds): 135 General Appearance: no apparent distress EENT: normal ENT inspection Neck: supple Cardiovascular: normal rate Respiratory/Chest: decreased breath sounds Abdomen: normal bowel sounds, non tender, soft Extremities: non-tender Inder Mccauley MD Oct 02, 2019 10:10
--- NOTE | 2019-10-02 12:58 | Nephrology Progress Note ---
Assessment/Plan Problem List: (1) JAVIER (acute kidney injury) (2) Renal failure (ARF), acute on chronic (3) Dehydration (4) Electrolyte imbalance (5) Anemia (6) Respiratory failure, acute and chronic (7) COPD with exacerbation Assessment Patient is presented with sepsis and pneumonia and UTI Patient has acute renal failure, possible underlying chronic kidney failure Severe anemia Electrolyte imbalances: Hyponatremia, hypo-kalemia Chronic respiratory failure, COPD exacerbation Plan October 01: Labs reviewed. Potassium supplement given. Last dialysis September 29. Serum creatinine rising gradually. Urine output very low. Patient appears to continue to need dialysis at least twice a week. Blood pressure still running high I will switch the hydralazine to minoxidil. We will give 1 dose of Zaroxolyn 10 mg today. Will check renal parameters tomorrow. September 30: Patient dialyzed yesterday. 3 L removed. Labs reviewed. Potassium supplement given. Continue per consultants. It appears that the patient required dialysis 2-3 times a week. September 29: Lab reviewed. Chest x-ray result noted. Continues to have pulmonary congestion. Urine output low. Will attempt dialysis again today with ultrafiltration. September 28: Lab reviewed. ABG reviewed. Potassium supplement given. No dialysis at this point. Will eval patient status and renal parameters daily. September 27: Lab reviewed. Last dialysis September 25. Continue to monitor renal parameters. Hemodialysis as needed. September 26: Lab reviewed. Dialyzed yesterday. Potassium supplement given. Medication list reviewed. Will observe renal parameters and arrange for dialysis as needed. September 25: Lab reviewed. Currently on hemodialysis. Tolerating well. Stable from renal standpoint of view. Blood pressure medication adjusted by increasing hydralazine. September 24: Lab reviewed. ABG reviewed. Both lab and ABG much improved. Patient was dialyzed yesterday. We will attempt dialysis tomorrow again. Will adjust that blood pressure medication dosages. September 23: Lab reviewed. ABG reviewed. Patient acidotic. IV bicarb 1 dose is given. Patient has dialysis catheter. Will order dialysis for ultrafiltration and correction of acid-base. Discussed with ERASMO Mohr. September 22: Labs reviewed. Potassium high. Kayexalate and Reglan given. Will discuss with the consultants regarding initiation of dialysis. September 21: Patient is being sedated. Labs reviewed. Potassium supplement discontinued. GFR 20. Continue per current treatment plan. Dialysis and ultrafiltration is a consideration. September 20: Patient periodically agitated. Labs reviewed. Creatinine 2.4. Medication reviewed. Continue per consultants. Calculated creatinine clearance 21. May need isolated ultrafiltration on dialysis. Will discuss with PMD. Meanwhile hemoglobin is lower, defer transfusion to PMD. September 19: DC IV fluid. Zaroxolyn via GT tube. Potassium supplement. Attempt to diurese. Chest CT as bilateral pleural effusion. If diuresis unsuccessful, will consider dialysis and ultrafiltration. September 18: Potassium supplement IV given. Hemoglobin stable. Patient remains full code. Continue per consultants. Previously: Potassium supplement IV Slow IV hydration Epogen subcu Adjust blood pressure medication IV fluid, rate adjusted Norman catheter, intake and output Monitor renal parameters Avoid nephrotoxic's Antibiotics Per orders 2D echocardiogram Kidney ultrasound Subjective ROS Limited/Unobtainable: Yes Objective Objective Last 24 Hour Vital Signs Date Time Temp Pulse Resp B/P (MAP) Pulse Ox O2 Delivery O2 Flow Rate FiO2 10/02/19 12:44 165/60 10/02/19 12:44 67 22 97 Mechanical Ventilator 45 67 21 45 10/02/19 11:15 66 21 168/63 (98) 99 10/02/19 11:00 68 21 173/63 (99) 98 10/02/19 10:45 71 23 180/69 (106) 98 10/02/19 10:38 68 21 60 10/02/19 10:30 74 20 191/74 (113) 96 10/02/19 10:15 69 20 186/66 (106) 97 10/02/19 10:00 68 20 187/66 (106) 96 10/02/19 09:48 68 20 184/63 (103) 95 10/02/19 09:45 69 20 184/65 (104) 96 10/02/19 09:38 68 182/64 10/02/19 09:30 69 20 182/64 (103) 96 10/02/19 09:20 73 24 60 10/02/19 09:15 70 20 169/61 (97) 94 10/02/19 09:00 72 20 163/66 (98) 94 10/02/19 08:45 75 20 163/68 (99) 96 10/02/19 08:30 70 20 147/64 (91) 95 10/02/19 08:15 80 19 152/65 (94) 96 10/02/19 08:00 Mechanical Ventilator Mechanical Ventilator 10/02/19 08:00 98.9 70 21 164/73 (103) 100 10/02/19 08:00 60 10/02/19 07:45 69 21 166/74 (104) 99 10/02/19 07:30 74 23 157/63 (94) 100 10/02/19 07:28 71 24 100 Mechanical Ventilator 60 69 21 60 10/02/19 07:15 68 20 156/64 (94) 100 10/02/19 07:00 70 22 154/63 (93) 100 10/02/19 07:00 22 154/63 Mechanical Ventilator 60 10/02/19 06:45 71 21 148/61 (90) 97 10/02/19 06:30 74 22 152/62 (92) 100 10/02/19 06:15 73 21 143/60 (87) 98 10/02/19 06:00 69 21 143/63 (89) 98 10/02/19 06:00 20 143/60 Mechanical Ventilator 60 10/02/19 05:45 156/67 10/02/19 05:45 69 156/67 10/02/19 05:45 69 21 152/55 (87) 98 10/02/19 05:30 70 21 152/67 (95) 99 10/02/19 05:15 67 20 152/62 (92) 97 10/02/19 05:03 66 20 60 10/02/19 05:00 20 158/61 Mechanical Ventilator 60 10/02/19 05:00 66 20 158/61 (93) 97 10/02/19 04:45 64 20 146/62 (90) 97 10/02/19 04:30 66 20 139/61 (87) 97 10/02/19 04:15 65 20 156/62 (93) 98 10/02/19 04:00 Mechanical Ventilator Mechanical Ventilator 10/02/19 04:00 20 156/62 Mechanical Ventilator 60 10/02/19 04:00 60 10/02/19 04:00 98.8 65 19 164/65 (98) 99 10/02/19 03:45 66 10/02/19 03:45 66 20 150/62 (91) 98 10/02/19 03:30 67 20 60 10/02/19 03:30 67 20 153/64 (93) 98 10/02/19 03:15 72 21 162/67 (98) 99 10/02/19 03:00 73 22 160/71 (100) 99 10/02/19 03:00 20 162/67 Mechanical Ventilator 60 10/02/19 02:45 71 23 167/63 (97) 97 10/02/19 02:30 73 24 153/59 (90) 97 10/02/19 02:15 71 22 158/62 (94) 97 10/02/19 02:00 71 23 163/61 (95) 97 10/02/19 02:00 20 163/61 Mechanical Ventilator 60 10/02/19 01:45 70 22 168/63 (98) 98 10/02/19 01:30 72 21 161/65 (97) 97 10/02/19 01:15 72 21 167/65 (99) 96 10/02/19 01:00 73 22 165/64 (97) 96 10/02/19 01:00 24 165/64 Mechanical Ventilator 60 10/02/19 00:45 67 20 144/58 (86) 97 10/02/19 00:41 71 22 100 Mechanical Ventilator 60 72 23 74 10/02/19 00:30 67 24 173/64 (100) 94 10/02/19 00:15 67 19 154/60 (91) 93 10/02/19 00:07 20 153/55 Mechanical Ventilator 60 10/02/19 00:06 153/55 10/02/19 00:00 21 154/60 Mechanical Ventilator 60 10/02/19 00:00 99.1 65 23 153/55 (87) 95 10/02/19 00:00 Mechanical Ventilator Mechanical Ventilator 10/01/19 23:45 64 20 161/61 (94) 95 10/01/19 23:30 65 20 167/57 (93) 96 10/01/19 23:15 63 10/01/19 23:15 63 20 170/60 (96) 97 10/01/19 23:00 63 19 171/62 (98) 97 10/01/19 23:00 20 161/61 Mechanical Ventilator 60 10/01/19 22:45 65 18 166/61 (96) 96 10/01/19 22:30 76 25 169/64 (99) 96 10/01/19 22:30 69 21 60 8/18/20 22:15 70 20 149/56 (87) 95 18/20 22:00 20 149/56 Mechanical Ventilator 60 1820 22:00 67 20 157/63 (94) 97 1820 21:45 66 20 169/58 (95) 98 18/20 21:30 67 20 173/60 (97) 98 1820 21:23 66 175/63 81820 21:18 65 20 60 1820 21:15 70 21 175/63 (100) 97 1820 21:00 21 175/63 Mechanical Ventilator 60 1820 21:00 70 21 167/66 (99) 95 1820 20:45 75 21 160/59 (92) 95 1820 20:38 66 171/57 1820 20:30 68 21 171/57 (95) 93 20 20:15 65 20 166/58 (94) 97 10/01/19 20:00 98.9 66 23 175/62 (99) 95 20 20:00 Mechanical Ventilator Mechanical Ventilator 20 20:00 20 166/58 Mechanical Ventilator 60 1820 20:00 60 1820 19:45 63 20 180/62 (101) 97 20 19:30 66 20 100 Mechanical Ventilator 60 72 21 60 18/20 19:30 65 21 168/57 (94) 95 20 19:17 65 10/01/19 19:15 66 20 155/59 (91) 96 20 19:00 20 155/59 Mechanical Ventilator 60 1820 19:00 70 23 155/56 (89) 95 18/20 18:30 73 25 171/61 (97) 95 18/20 18:00 66 21 159/57 (91) 94 1820 18:00 21 159/57 Mechanical Ventilator 60 20 18:00 23 Mechanical Ventilator 18/20 17:47 158/55 1820 17:35 65 21 158/55 (89) 95 18/20 17:00 66 20 152/56 (88) 95 20 17:00 20 152/56 Mechanical Ventilator 60 8/18/20 17:00 20 Mechanical Ventilator 10/01/19 16:38 69 20 70 10/01/19 16:30 66 21 156/73 (100) 95 10/01/19 16:00 60 10/01/19 16:00 72 10/01/19 16:00 20 122/49 Mechanical Ventilator 60 10/01/19 16:00 20 Mechanical Ventilator 10/01/19 16:00 Mechanical Ventilator Mechanical Ventilator 10/01/19 16:00 99.0 64 20 122/49 (73) 96 10/01/19 15:01 64 20 70 10/01/19 15:00 20 122/49 Mechanical Ventilator 60 10/01/19 15:00 20 125/54 Mechanical Ventilator 60 10/01/19 15:00 20 125/54 Mechanical Ventilator 60 10/01/19 15:00 20 10/01/19 15:00 20 10/01/19 15:00 20 Mechanical Ventilator 10/01/19 15:00 62 20 125/54 (77) 96 10/01/19 14:35 20 152/54 Mechanical Ventilator 10/01/19 14:35 19 10/01/19 14:30 63 20 132/54 (80) 96 10/01/19 14:00 19 10/01/19 14:00 19 10/01/19 14:00 66 19 135/55 (81) 99 10/01/19 13:29 72 137/53 10/01/19 13:00 72 18 136/57 (83) 98 10/01/19 13:00 18 Mechanical Ventilator Intake and Output 10/01/19 10/02/19 19:00 07:00 Intake Total 1241 ml 1922.6 ml Output Total 227 ml 355 ml Balance 1014 ml 1567.6 ml IV Total 701 ml 1352.6 ml Tube Feeding 480 ml 480 ml Other 60 ml 90 ml Output Urine Total 227 ml 355 ml Laboratory Tests 10/02/19 04:25: White Blood Count 7.1, Red Blood Count 2.96L, Hemoglobin 9.2L, Hematocrit 28.5L , Mean Corpuscular Volume 97, Mean Corpuscular Hemoglobin 31.1H, Mean Corpuscular Hemoglobin Concent 32.2, Red Cell Distribution Width 14.7, Platelet Count 304, Mean Platelet Volume 5.8L, Neutrophils (%) (Auto) 71.6, Lymphocytes ( %) (Auto) 18.3L, Monocytes (%) (Auto) 5.2, Eosinophils (%) (Auto) 4.4H, Basophils (%) (Auto) 0.6, Sodium Level 139, Potassium Level 3.2L, Chloride Level 102, Carbon Dioxide Level 30, Anion Gap 7, Blood Urea Nitrogen 61H, Creatinine 2.2H, Estimat Glomerular Filtration Rate 23.9, Glucose Level 90, Calcium Level 8.7, Phosphorus Level 4.0, Magnesium Level 2.3, Total Bilirubin 0.3, Aspartate Amino Transf (AST/SGOT) 19, Alanine Aminotransferase (ALT/SGPT) 10L, Alkaline Phosphatase 131H, C-Reactive Protein, Quantitative 11.9H, Pro-B- Type Natriuretic Peptide > 47280W, Total Protein 6.4, Albumin 1.6L, Globulin 4.8 , Albumin/Globulin Ratio 0.3L 10/02/19 07:57: Arterial Blood pH 7.454H, Arterial Blood Partial Pressure CO2 38.1, Arterial Blood Partial Pressure O2 67.0L, Arterial Blood HCO3 26.1H, Arterial Blood Oxygen Saturation 93.1L, Arterial Blood Base Excess 2.2H, Rojas Test Positive Height (Feet): 5 Height (Inches): 5.00 Weight (Pounds): 135 General Appearance: no apparent distress EENT: other - On mechanical ventilation Cardiovascular: normal rate Respiratory/Chest: decreased breath sounds Abdomen: distended Objective No change Johnny Houston MD Oct 02, 2019 12:58
--- NOTE | 2019-10-02 14:51 | Surgery Progress Note ---
Surgery Progress Note Subjective Additional Comments improved weaning vent well weaning fent, versed off Objective Last 24 Hour Vital Signs Date Time Temp Pulse Resp B/P (MAP) Pulse Ox O2 Delivery O2 Flow Rate FiO2 10/02/19 13:00 69 23 166/58 (94) 94 10/02/19 12:45 67 18 157/62 (93) 97 10/02/19 12:44 165/60 10/02/19 12:44 67 22 97 Mechanical Ventilator 45 67 21 45 10/02/19 12:30 64 20 165/60 (95) 96 10/02/19 12:15 64 21 163/62 (95) 97 10/02/19 12:00 50 10/02/19 12:00 99.7 65 20 160/62 (94) 97 10/02/19 12:00 Mechanical Ventilator Mechanical Ventilator 10/02/19 12:00 66 10/02/19 11:45 66 21 166/65 (98) 97 10/02/19 11:30 65 20 160/63 (95) 99 10/02/19 11:15 66 21 168/63 (98) 99 10/02/19 11:00 68 21 173/63 (99) 98 10/02/19 10:45 71 23 180/69 (106) 98 10/02/19 10:38 68 21 60 10/02/19 10:30 74 20 191/74 (113) 96 10/02/19 10:15 69 20 186/66 (106) 97 10/02/19 10:00 68 20 187/66 (106) 96 10/02/19 09:48 68 20 184/63 (103) 95 10/02/19 09:45 69 20 184/65 (104) 96 10/02/19 09:38 68 182/64 10/02/19 09:30 69 20 182/64 (103) 96 10/02/19 09:20 73 24 60 10/02/19 09:15 70 20 169/61 (97) 94 10/02/19 09:00 72 20 163/66 (98) 94 10/02/19 08:45 75 20 163/68 (99) 96 10/02/19 08:30 70 20 147/64 (91) 95 10/02/19 08:15 80 19 152/65 (94) 96 10/02/19 08:00 Mechanical Ventilator Mechanical Ventilator 10/02/19 08:00 98.9 70 21 164/73 (103) 100 10/02/19 08:00 77 10/02/19 08:00 60 10/02/19 07:45 69 21 166/74 (104) 99 10/02/19 07:30 74 23 157/63 (94) 100 10/02/19 07:28 71 24 100 Mechanical Ventilator 60 69 21 60 10/02/19 07:15 68 20 156/64 (94) 100 10/02/19 07:00 70 22 154/63 (93) 100 10/02/19 07:00 22 154/63 Mechanical Ventilator 60 10/02/19 06:45 71 21 148/61 (90) 97 10/02/19 06:30 74 22 152/62 (92) 100 10/02/19 06:15 73 21 143/60 (87) 98 10/02/19 06:00 69 21 143/63 (89) 98 10/02/19 06:00 20 143/60 Mechanical Ventilator 60 10/02/19 05:45 156/67 10/02/19 05:45 69 156/67 10/02/19 05:45 69 21 152/55 (87) 98 10/02/19 05:30 70 21 152/67 (95) 99 10/02/19 05:15 67 20 152/62 (92) 97 10/02/19 05:03 66 20 60 10/02/19 05:00 20 158/61 Mechanical Ventilator 60 10/02/19 05:00 66 20 158/61 (93) 97 10/02/19 04:45 64 20 146/62 (90) 97 10/02/19 04:30 66 20 139/61 (87) 97 10/02/19 04:15 65 20 156/62 (93) 98 10/02/19 04:00 Mechanical Ventilator Mechanical Ventilator 10/02/19 04:00 20 156/62 Mechanical Ventilator 60 10/02/19 04:00 60 10/02/19 04:00 98.8 65 19 164/65 (98) 99 10/02/19 03:45 66 10/02/19 03:45 66 20 150/62 (91) 98 10/02/19 03:30 67 20 60 10/02/19 03:30 67 20 153/64 (93) 98 10/02/19 03:15 72 21 162/67 (98) 99 10/02/19 03:00 73 22 160/71 (100) 99 10/02/19 03:00 20 162/67 Mechanical Ventilator 60 10/02/19 02:45 71 23 167/63 (97) 97 10/02/19 02:30 73 24 153/59 (90) 97 10/02/19 02:15 71 22 158/62 (94) 97 10/02/19 02:00 71 23 163/61 (95) 97 10/02/19 02:00 20 163/61 Mechanical Ventilator 60 10/02/19 01:45 70 22 168/63 (98) 98 10/02/19 01:30 72 21 161/65 (97) 97 10/02/19 01:15 72 21 167/65 (99) 96 10/02/19 01:00 73 22 165/64 (97) 96 10/02/19 01:00 24 165/64 Mechanical Ventilator 60 10/02/19 00:45 67 20 144/58 (86) 97 10/02/19 00:41 71 22 100 Mechanical Ventilator 60 72 23 74 10/02/19 00:30 67 24 173/64 (100) 94 10/02/19 00:15 67 19 154/60 (91) 93 10/02/19 00:07 20 153/55 Mechanical Ventilator 60 10/02/19 00:06 153/55 10/02/19 00:00 21 154/60 Mechanical Ventilator 60 10/02/19 00:00 99.1 65 23 153/55 (87) 95 10/02/19 00:00 Mechanical Ventilator Mechanical Ventilator 10/01/19 23:45 64 20 161/61 (94) 95 10/01/19 23:30 65 20 167/57 (93) 96 10/01/19 23:15 63 10/01/19 23:15 63 20 170/60 (96) 97 10/01/19 23:00 63 19 171/62 (98) 97 10/01/19 23:00 20 161/61 Mechanical Ventilator 60 10/01/19 22:45 65 18 166/61 (96) 96 10/01/19 22:30 76 25 169/64 (99) 96 10/01/19 22:30 69 21 60 8/18/20 22:15 70 20 149/56 (87) 95 18/20 22:00 20 149/56 Mechanical Ventilator 60 1820 22:00 67 20 157/63 (94) 97 1820 21:45 66 20 169/58 (95) 98 18/20 21:30 67 20 173/60 (97) 98 1820 21:23 66 175/63 81820 21:18 65 20 60 1820 21:15 70 21 175/63 (100) 97 1820 21:00 21 175/63 Mechanical Ventilator 60 1820 21:00 70 21 167/66 (99) 95 1820 20:45 75 21 160/59 (92) 95 1820 20:38 66 171/57 1820 20:30 68 21 171/57 (95) 93 20 20:15 65 20 166/58 (94) 97 10/01/19 20:00 98.9 66 23 175/62 (99) 95 20 20:00 Mechanical Ventilator Mechanical Ventilator 20 20:00 20 166/58 Mechanical Ventilator 60 1820 20:00 60 1820 19:45 63 20 180/62 (101) 97 20 19:30 66 20 100 Mechanical Ventilator 60 72 21 60 18/20 19:30 65 21 168/57 (94) 95 20 19:17 65 10/01/19 19:15 66 20 155/59 (91) 96 20 19:00 20 155/59 Mechanical Ventilator 60 1820 19:00 70 23 155/56 (89) 95 18/20 18:30 73 25 171/61 (97) 95 18/20 18:00 66 21 159/57 (91) 94 1820 18:00 21 159/57 Mechanical Ventilator 60 20 18:00 23 Mechanical Ventilator 18/20 17:47 158/55 1820 17:35 65 21 158/55 (89) 95 18/20 17:00 66 20 152/56 (88) 95 20 17:00 20 152/56 Mechanical Ventilator 60 8/18/20 17:00 20 Mechanical Ventilator 10/01/19 16:38 69 20 70 10/01/19 16:30 66 21 156/73 (100) 95 10/01/19 16:00 60 10/01/19 16:00 72 10/01/19 16:00 20 122/49 Mechanical Ventilator 60 10/01/19 16:00 20 Mechanical Ventilator 10/01/19 16:00 Mechanical Ventilator Mechanical Ventilator 10/01/19 16:00 99.0 64 20 122/49 (73) 96 10/01/19 15:01 64 20 70 10/01/19 15:00 20 122/49 Mechanical Ventilator 60 10/01/19 15:00 20 125/54 Mechanical Ventilator 60 10/01/19 15:00 20 125/54 Mechanical Ventilator 60 10/01/19 15:00 20 10/01/19 15:00 20 10/01/19 15:00 20 Mechanical Ventilator 10/01/19 15:00 62 20 125/54 (77) 96 I&O Intake and Output 10/01/19 10/02/19 19:00 07:00 Intake Total 1241 ml 1922.6 ml Output Total 227 ml 355 ml Balance 1014 ml 1567.6 ml IV Total 701 ml 1352.6 ml Tube Feeding 480 ml 480 ml Other 60 ml 90 ml Output Urine Total 227 ml 355 ml Dressing: saturated Cardiovascular: RSR Respiratory: decreased breath sounds Abdomen: soft, non-tender, present bowel sounds Extremities: no edema, no cyanosis Laboratory Tests Test 10/02/19 04:25 10/02/19 07:57 White Blood Count 7.1 K/UL (4.8-10.8) Red Blood Count 2.96 M/UL (4.20-5.40) L Hemoglobin 9.2 G/DL (12.0-16.0) L Hematocrit 28.5 % (37.0-47.0) L Mean Corpuscular Volume 97 FL (80-99) Mean Corpuscular Hemoglobin 31.1 PG (27.0-31.0) H Mean Corpuscular Hemoglobin Concent 32.2 G/DL (32.0-36.0) Red Cell Distribution Width 14.7 % (11.6-14.8) Platelet Count 304 K/UL (150-450) Mean Platelet Volume 5.8 FL (6.5-10.1) L Neutrophils (%) (Auto) 71.6 % (45.0-75.0) Lymphocytes (%) (Auto) 18.3 % (20.0-45.0) L Monocytes (%) (Auto) 5.2 % (1.0-10.0) Eosinophils (%) (Auto) 4.4 % (0.0-3.0) H Basophils (%) (Auto) 0.6 % (0.0-2.0) Sodium Level 139 MMOL/L (136-145) Potassium Level 3.2 MMOL/L (3.5-5.1) L Chloride Level 102 MMOL/L (98-107) Carbon Dioxide Level 30 MMOL/L (21-32) Anion Gap 7 mmol/L (5-15) Blood Urea Nitrogen 61 mg/dL (7-18) H Creatinine 2.2 MG/DL (0.55-1.30) H Estimat Glomerular Filtration Rate 23.9 mL/min (>60) Glucose Level 90 MG/DL (74-106) Calcium Level 8.7 MG/DL (8.5-10.1) Phosphorus Level 4.0 MG/DL (2.5-4.9) Magnesium Level 2.3 MG/DL (1.8-2.4) Total Bilirubin 0.3 MG/DL (0.2-1.0) Aspartate Amino Transf (AST/SGOT) 19 U/L (15-37) Alanine Aminotransferase (ALT/SGPT) 10 U/L (12-78) L Alkaline Phosphatase 131 U/L (46-116) H C-Reactive Protein, Quantitative 11.9 mg/dL (0.00-0.90) H Pro-B-Type Natriuretic Peptide > 47569 pg/mL (0-125) H Total Protein 6.4 G/DL (6.4-8.2) Albumin 1.6 G/DL (3.4-5.0) L Globulin 4.8 g/dL Albumin/Globulin Ratio 0.3 (1.0-2.7) L Arterial Blood pH 7.454 (7.350-7.450) Arterial Blood Partial Pressure CO2 38.1 mmHg (35.0-45.0) Arterial Blood Partial Pressure O2 67.0 mmHg (75.0-100.0) L Arterial Blood HCO3 26.1 mmol/L (22.0-26.0) H Arterial Blood Oxygen Saturation 93.1 % (95-100) L Arterial Blood Base Excess 2.2 (-2-2) H Rojas Test Positive Plan Problems: (1) Anemia (2) Proteinuria (3) UTI (urinary tract infection) (4) ARF (acute renal failure) (5) ACS (acute coronary syndrome) (6) Respiratory failure, acute and chronic (7) HCAP (healthcare-associated pneumonia) (8) Abrasion of lip, initial encounter (9) COPD with exacerbation (10) Hypokalemia (11) Sepsis Assessment & Plan: Leukocytosis, anemia, abnormal labs. Renal insufficiency potentially dehydrated Abnormal LFTs alk phos elevated Urine noted significant bacteria likely UTI etiology Wound stable still requiring local care IV antibiotics per infectious disease Discussed with brick chimney builder Dr. Berkowitz air mattress turn q2h nutritional tf will follow with recs thank you CT noted pending VQ scan - noted poor study low prob PE work respiratory increasing needs sedation weaning vent settings 80% peep 10 now comfortable Hd line in receiving HD plan for left thora 09/26 (12) Chronic respiratory failure (13) Ascites (14) Bacteremia (15) Hypernatremia (16) Pleural effusion (17) Pacemaker (18) Aortic dissection, thoracic (19) Tracheostomy in place Assessment & Plan: trach stable no bleeding currently likely tongue etiology of mild oozing currently hemostatic without trauma (20) Feeding by G-tube Assessment & Plan: okay to resume tube feeds via g tube patent and functional dressings okay DAILY ESTIMATED NEEDS: Needs based on Pulmonary, wound 49kg 30-35 kcals/kg [id number] total kcals 1.25-2 g protein/kg 61-98 g total protein Fluid per MD NUTRITION DIAGNOSIS: * Swallowing difficulty R/T dysphagia, respiratory status as evidenced by vent dep via T-collar, GT Dep. (CURRENT TF: Nepro @45ml/hr x 24 hrs) ENTERAL NUTRITION RECOMMENDATIONS: Nepro @ 40ml/hr x 24 hrs to provide 960ml, 1728kcal, 78g prot, 698ml free water * Rec LOWER current rate to 40ml/hr for 24 hrs run. 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 Base of wound is granular with bone exposure at base of sacrococcygeal.(L)10.5cm x (W06.5cm x (D) 2.8cm , undermining 11-3 by 3.6cm @12 o'clock. small amt serosanguineous exudate noted . [place] epithelial along edges bordered by darker skin tone without erythema. Resolving Pressure injury L ischium. Base of wound is 95% pink epithelial ,5% noni at center base of wound. No exudate noted. Both heels are boggy with non-Blanching erythema. Tx.plan: Cleanse Sacral wound with Saline. Loosely pack with Hydrogel impregnated Kerlix. Apply Moisture Barrier Periwound. Cover with Optifoam drsg Daily and prn. Apply Moisture Barrier paste to L Ischium. Cover with Optifoam drsg. Changee very 3 days and prn. Apply Cavilon Skin Barrier to both heels. Cover each heel with Optifoam drsgs. Change every 7 days and prn. Reposition at least every 2hours or as tolerated. Off-load heels with pillow. APM/JENNIFER Mattress overlay. QuentinLane Oct 02, 2019 14:51
[2019-10-02] MEDS: Minoxidil 2.5mg tab GT SCH ×2 (15:01→21:53)
[2019-10-02] MEDS: Epoetin Alfa-EPBX(ESRD on dialysis)10,000 unit/ml vial SUBQ SCH (20:45)
[2019-10-02] MEDS: Miralax 17gm pkt ORAL SCH (20:45)
[2019-10-02] MEDS: Dyna-Hex 2% Top Sol 2oz TOPIC SCH (20:45)
[2019-10-02] MEDS: Sertraline 100mg tab GT SCH (20:46)
[2019-10-03] VITALS (60 sets, daily range): BP systolic 133–180; BP diastolic 55–86
[2019-10-03] MEDS: Albuterol/Ipratropium 3ml neb HHN SCH ×4 (00:30→19:08)
[2019-10-03] MEDS: CEFTOLOZANE IV SCH ×3 (03:43→20:20)
[2019-10-03] MEDS: NS IV SCH ×3 (03:43→20:20)
[2019-10-03] MEDS: TAZOBACTAM IV SCH ×3 (03:43→20:20)
[2019-10-03 05:29] LABS: ALANINE AMINOTRANSFERASE 6 U/L (12-78); ALBUMIN 1.6 G/DL (3.4-5.0); ALBUMIN/GLOBULIN RATIO 0.3 (1.0-2.7); ALKALINE PHOSPHATASE 136 U/L (46-116); ANION GAP -4 mmol/L (5-15); ASPARTATE AMINO TRANSFERASE 25 U/L (15-37); BILIRUBIN,TOTAL 0.3 MG/DL (0.2-1.0); BLOOD UREA NITROGEN 67 mg/dL (7-18); CALCIUM 8.7 MG/DL (8.5-10.1); CARBON DIOXIDE 29 MMOL/L (21-32); CHLORIDE 101 MMOL/L (98-107); CREATININE 2.2 MG/DL (0.55-1.30); POTASSIUM 2.8 MMOL/L (3.5-5.1); SODIUM 126 MMOL/L (136-145)
[2019-10-03 05:34] LABS: PHOSPHORUS 4.1 MG/DL (2.5-4.9)
[2019-10-03 05:44] LABS: BASOPHILS % (AUTO) 0.8 % (0.0-2.0); EOSINOPHILS % (AUTO) 4.6 % (0.0-3.0); HEMATOCRIT 29.9 % (37.0-47.0); HEMOGLOBIN 9.5 G/DL (12.0-16.0); MEAN CORPUSCULAR VOLUME 96 FL (80-99); MONOCYTES % (AUTO) 6.8 % (1.0-10.0); NEUTROPHILS % (AUTO) 65.7 % (45.0-75.0); PLATELET COUNT 354 K/UL (150-450); RED BLOOD COUNT 3.09 M/UL (4.20-5.40); RED CELL DISTRIBUTION WIDTH 14.3 % (11.6-14.8); WHITE BLOOD COUNT 6.9 K/UL (4.8-10.8)
[2019-10-03] MEDS: dilTIAZem HCl 30mg tab GT SCH ×3 (05:58→21:49)
[2019-10-03] MEDS: Metoclopramide 10mg/2ml Inj IVP SCH ×3 (05:59→21:49)
[2019-10-03] MEDS: traMADol 50mg tab GT SCH ×3 (05:59→18:01)
[2019-10-03] MEDS: Minoxidil 2.5mg tab GT SCH ×3 (05:59→18:01)
--- NOTE | 2019-10-03 07:03 | Hematology/Onc Progress Note ---
Assessment/Plan Assessment/Plan Assessment and Recs # Leukocytosis, now with gram positive bacteremias well as pna noted --> historically --> PPM site (pocket) infection (redness and pain, bacteremia) and likely pocket abscess - no vegetation seen on ABBIE --> is s'p pm removal and also pocket infection is better --> per cards recs in re to tach/davis --> wbc 15-->19-->17-->15-->13->12-->13-->12>13-->18-->9-->7 --> ABX cefepime/levaquin--> vanc/angelo --> ID recs are noted # Anemia of chronic disease due to underlying chronic medical issues, multifactorial --> Anemia workup has been reviewed, cw acd --> No evidence of hemolysis is noted, peripheral smear has been reviewed. --> Hgb goal >7. Transfuse prn. --> Epogen started --> Medications have been reviewed --> low threshold for gi evaluation in case has occult + --> hgb 7.1-->7.8-->8.9->9.2-->8.5-->9.7-->10-->8.8-->9.6-->8.7->8.6-->7.2->8.7- >9.1-->9.2-->9 --> 1 unit prbc 09/27 # Thrombocytois is likely reactive process, is s/p infection --> plt trend 610k-->706k --> p smear reviewed # Acute hypoxic respiratory failure s/p intubation 11/23- ?ARDS --> on vent/trach # Gram positive bacteremia- real bacteremia- 2ry to above and probable PNA --> per id care # JAVIER initially >2 --> now improved with D5w # Dysphagia s/p peg # Thoracic aortic dissection s/p repair early 2017 # Psychiatric history on ativan/haldol # [place] resident # Dvt ppx heparin sq The timing of this note does not necessarily reflect the time of the patient was seen. Greatly appreciate consultation. Subjective Allergies: Coded Allergies: No Known Allergies (Unverified , 10/10/17) All Systems: reviewed and negative except above Subjective 09/16 on vent now, consulted in am pulm, on vent setting, labs noted, hep sq 09/17 meds noted, cbc noted, labs noted, no bleeding 09/18 is to undergo potential v/q scan given abg, labs noted, resless, on ativan, to get haldol today, roman rn 09/19 remains agitated, covering, with sacral wound seeping, likely cause of anemia, roman rn 09/26 restless, remains agitated, gtube ripped, eval with rn, and cherylsoghi consulted 09/27 remains on vent, agitated, seen by gi, hgb low, roman George to transfuse 1 unit prbc 09/28 meds noted, no bleeding, on vent, s/p blood tranfusion, cbc pending, roman rn 09/29 remains in the icu, roman rn in the am, agitated, on versed, fentanyl, restraints 09/30 in icu, trach to vent, on gtube feeds, fentanyl, agitated 10/01 in icu, roman Ayoub rn, no bleeding, sleeping, labs noted, hgb >9 10/02 sedated in icu, is on vent, roman rn, more alert and more conversive with face grimaces Objective Objective Current Medications Medications (Trade) Dose Ordered Sig/Penny Route PRN Reason Start Time Stop Time Status Last Admin Dose Admin Acetaminophen (Tylenol) 325 mg Q6H PRN GT Temp >100.5 09/23/19 10:45 10/23/19 10:44 09/23/19 18:55 Albuterol/ Ipratropium (Albuterol/ Ipratropium) 3 ml Q6HRT HHN 09/30/19 13:00 10/04/19 12:59 10/03/19 00:30 Ceftolozane/ Tazobactam 0.45 gm/Sodium Chloride 110 ml @ 110 mls/hr Q8H IV 09/28/19 20:00 10/05/19 19:59 10/03/19 03:43 Chlorhexidine Gluconate (Ling-Hex 2%) 1 applic DAILY@2000 TOPIC 09/23/19 20:00 12/22/19 19:59 10/02/19 20:45 Diltiazem HCl (Cardizem Tab) 30 mg EVERY 8 HOURS GT 09/25/19 14:00 10/15/19 11:59 10/03/19 05:58 Docusate Sodium (Colace) 100 mg Q8H GT 09/29/19 08:30 10/29/19 08:29 10/02/19 23:12 Epoetin Gelacio (Epoetin Gelacio(ESRD on dialysis)) 10,000 unit MON-MON-MON SUBQ 09/25/19 21:00 12/24/19 20:59 10/02/19 20:45 Fentanyl Citrate 250 ml @ 0 mls/hr Q24H IV 10/01/19 14:30 10/03/19 14:29 10/02/19 14:55 Gentamicin Protocol (Gentamicin pharmacy to dose) 1 ea DAILY PRN MISC Per rx protocol 09/28/19 13:15 10/28/19 13:14 Heparin Sodium (Porcine) (Heparin 5000 units/ml) 5,000 units EVERY 12 HOURS SUBQ 09/17/19 21:00 10/30/19 08:59 10/02/19 20:47 Hydralazine HCl (Apresoline) 10 mg Q4H PRN IV BP over 160 systolic 09/17/19 11:15 12/14/19 11:14 09/24/19 15:55 Lansoprazole (Prevacid) 30 mg Q12HR GT 09/27/19 21:00 10/27/19 20:59 10/02/19 20:45 Metoclopramide HCl (Reglan) 10 mg Q8H IVP 09/29/19 14:00 10/29/19 13:59 10/03/19 05:59 Metoprolol Tartrate (Lopressor) 25 mg EVERY 12 HOURS GT 09/25/19 21:00 12/14/19 20:59 10/02/19 20:46 Midazolam HCl (Versed 2mg/2ml vial) 1 mg Q4H PRN IVP For Anxiety 09/21/19 09:30 12/20/19 09:29 09/27/19 08:57 Minoxidil (Loniten) 2.5 mg Q8HR GT 10/02/19 14:00 12/31/19 13:59 10/03/19 05:59 Olanzapine (ZyPREXA) 2.5 mg DAILY GT 09/18/19 09:00 10/30/19 08:59 10/02/19 09:38 Polyethylene Glycol (Miralax) 17 gm BEDTIME ORAL 10/01/19 21:00 10/31/19 20:59 10/02/19 20:45 Sertraline HCl (Zoloft) 100 mg BEDTIME GT 09/17/19 21:00 10/15/19 20:59 10/02/19 20:46 Sorbitol (sorbitoL) 30 ml EVERY 6 HOURS PRN GT Constipation 09/29/19 18:00 10/29/19 17:59 10/01/19 00:44 Tramadol HCl (Ultram) 25 mg Q6HR GT 09/27/19 09:45 10/04/19 09:44 10/03/19 05:59 Last 24 Hour Vital Signs Date Time Temp Pulse Resp B/P (MAP) Pulse Ox O2 Delivery O2 Flow Rate FiO2 10/03/19 06:45 71 22 149/60 (89) 88 10/03/19 06:30 71 19 150/65 (93) 93 10/03/19 06:15 79 23 156/59 (91) 94 10/03/19 06:15 21 150/65 Mechanical Ventilator 55 10/03/19 06:00 75 21 178/63 (101) 99 10/03/19 06:00 20 156/59 Mechanical Ventilator 55 10/03/19 05:59 137/67 10/03/19 05:58 70 137/67 10/03/19 05:45 72 21 137/67 (90) 93 10/03/19 05:30 72 22 147/61 (89) 93 10/03/19 05:15 73 21 133/63 (86) 94 10/03/19 05:09 74 21 55 10/03/19 05:00 73 20 142/64 (90) 94 10/03/19 05:00 20 133/63 Mechanical Ventilator 55 10/03/19 04:45 26 143/62 Mechanical Ventilator 55 10/03/19 04:45 76 17 157/66 (96) 94 10/03/19 04:30 72 19 143/62 (89) 96 10/03/19 04:15 71 15 157/68 (97) 96 10/03/19 04:00 98.9 75 16 171/63 (99) 93 10/03/19 04:00 18 157/68 Mechanical Ventilator 55 10/03/19 04:00 60 10/03/19 04:00 Mechanical Ventilator Mechanical Ventilator 10/03/19 03:45 67 19 154/64 (94) 94 10/03/19 03:30 66 19 148/64 (92) 92 10/03/19 03:25 67 10/03/19 03:15 66 20 136/63 (87) 91 10/03/19 03:08 75 20 55 10/03/19 03:00 66 20 136/63 (87) 93 10/03/19 03:00 20 136/63 Mechanical Ventilator 55 10/03/19 02:45 68 18 138/63 (88) 93 10/03/19 02:30 69 17 148/64 (92) 95 10/03/19 02:15 70 18 140/66 (90) 94 10/03/19 02:00 21 140/66 Mechanical Ventilator 55 10/03/19 02:00 70 20 140/68 (92) 94 10/03/19 01:45 69 21 145/72 (96) 94 10/03/19 01:30 70 21 148/64 (92) 94 10/03/19 01:15 69 21 138/69 (92) 93 10/03/19 01:00 20 138/63 Mechanical Ventilator 55 10/03/19 01:00 71 20 138/63 (88) 95 10/03/19 00:45 69 20 145/61 (89) 92 10/03/19 00:30 66 20 135/60 (85) 93 10/03/19 00:30 65 20 94 Mechanical Ventilator 55 68 20 45 10/03/19 00:15 66 20 145/64 (91) 92 10/03/19 00:00 97.8 64 20 139/74 (95) 92 10/03/19 00:00 20 145/64 Mechanical Ventilator 55 10/03/19 00:00 Mechanical Ventilator Mechanical Ventilator 10/02/19 23:45 65 20 137/61 (86) 93 10/02/19 23:32 65 10/02/19 23:30 65 20 121/58 (79) 92 10/02/19 23:15 68 20 141/61 (87) 94 10/02/19 23:00 20 132/63 Mechanical Ventilator 55 10/02/19 23:00 68 20 132/63 (86) 94 8/19/20 22:45 68 19 145/64 (91) 95 20 22:41 70 20 50 20 22:30 66 20 130/62 (84) 94 20 22:15 67 20 135/61 (85) 94 20 22:00 20 138/60 Mechanical Ventilator 55 20 22:00 66 20 138/60 (86) 95 1920 21:53 152/65 20 21:53 66 152/35 20 21:45 67 20 152/65 (94) 94 20 21:30 68 20 142/68 (92) 94 20 21:15 69 20 146/65 (92) 94 20 21:00 71 21 137/66 (89) 94 10/02/19 21:00 20 146/65 Mechanical Ventilator 55 10/02/19 20:58 74 21 55 10/02/19 20:46 77 144/60 10/02/19 20:45 75 22 145/66 (92) 94 10/02/19 20:30 77 23 144/60 (88) 95 10/02/19 20:15 71 20 130/59 (82) 93 20 20:00 97.5 73 21 149/65 (93) 93 20 20:00 21 130/59 Mechanical Ventilator 55 20 20:00 60 20 20:00 Mechanical Ventilator Mechanical Ventilator 10/02/19 19:45 71 20 147/69 (95) 94 10/02/19 19:43 71 10/01/20 19:30 69 20 140/67 (91) 97 10/02/19 19:27 70 20 96 Mechanical Ventilator 55 71 20 45 10/02/19 19:15 71 21 147/66 (93) 92 20 19:00 73 23 142/63 (89) 94 20 19:00 22 154/64 Mechanical Ventilator 22 20 18:45 73 19 158/104 (122) 96 1920 18:30 72 22 154/64 (94) 91 20 18:15 71 22 158/67 (97) 91 8/19/20 18:00 23 159/69 Mechanical Ventilator 55 10/02/19 18:00 72 23 159/68 (98) 91 10/02/19 17:45 73 22 152/63 (92) 91 10/02/19 17:30 70 21 137/60 (85) 90 10/02/19 17:15 74 23 151/64 (93) 91 10/02/19 17:13 55 10/02/19 17:09 74 21 60 10/02/19 17:00 74 22 142/62 (88) 92 10/02/19 17:00 22 142/62 Mechanical Ventilator 60 10/02/19 16:45 73 23 153/63 (93) 91 10/02/19 16:30 72 21 155/66 (95) 92 10/02/19 16:15 73 23 152/65 (94) 93 10/02/19 16:00 75 10/02/19 16:00 99.4 78 23 154/65 (94) 97 10/02/19 16:00 22 154/65 Mechanical Ventilator 60 10/02/19 16:00 60 10/02/19 16:00 Mechanical Ventilator Mechanical Ventilator 10/02/19 15:45 74 22 149/64 (92) 94 10/02/19 15:30 75 23 149/65 (93) 95 10/02/19 15:28 73 22 60 10/02/19 15:15 74 22 148/62 (90) 94 10/02/19 15:01 157/61 10/02/19 15:00 74 22 157/70 (99) 93 10/02/19 15:00 22 154/85 Mechanical Ventilator 60 10/02/19 14:56 74 157/61 10/02/19 14:55 23 157/61 Mechanical Ventilator 60 10/02/19 14:45 74 23 157/61 (93) 93 10/02/19 14:30 75 23 156/63 (94) 93 10/02/19 14:15 75 23 154/67 (96) 92 10/02/19 14:00 25 156/69 Mechanical Ventilator 50 10/02/19 14:00 74 24 156/69 (98) 90 10/02/19 13:45 74 25 159/61 (93) 89 10/02/19 13:30 77 24 160/64 (96) 90 10/02/19 13:15 74 27 160/64 (96) 91 10/02/19 13:00 22 166/58 Mechanical Ventilator 50 10/02/19 13:00 69 23 166/58 (94) 94 10/02/19 12:45 67 18 157/62 (93) 97 10/02/19 12:44 165/60 10/02/19 12:44 67 22 97 Mechanical Ventilator 45 67 21 45 10/02/19 12:30 64 20 165/60 (95) 96 10/02/19 12:15 64 21 163/62 (95) 97 10/02/19 12:00 50 10/02/19 12:00 99.7 65 20 160/62 (94) 97 10/02/19 12:00 20 160/62 Mechanical Ventilator 50 10/02/19 12:00 Mechanical Ventilator Mechanical Ventilator 10/02/19 12:00 66 10/02/19 11:45 66 21 166/65 (98) 97 10/02/19 11:30 65 20 160/63 (95) 99 10/02/19 11:15 66 21 168/63 (98) 99 10/02/19 11:00 21 173/63 Mechanical Ventilator 50 10/02/19 11:00 68 21 173/63 (99) 98 10/02/19 10:45 71 23 180/69 (106) 98 10/02/19 10:38 68 21 60 10/02/19 10:30 74 20 191/74 (113) 96 10/02/19 10:15 69 20 186/66 (106) 97 10/02/19 10:00 68 20 187/66 (106) 96 10/02/19 10:00 20 187/66 Mechanical Ventilator 60 10/02/19 09:48 68 20 184/63 (103) 95 10/02/19 09:45 69 20 184/65 (104) 96 10/02/19 09:38 68 182/64 10/02/19 09:30 69 20 182/64 (103) 96 10/02/19 09:20 73 24 60 10/02/19 09:15 70 20 169/61 (97) 94 10/02/19 09:00 72 20 163/66 (98) 94 10/02/19 09:00 20 163/66 Mechanical Ventilator 60 10/02/19 08:45 75 20 163/68 (99) 96 10/02/19 08:30 70 20 147/64 (91) 95 10/02/19 08:15 80 19 152/65 (94) 96 10/02/19 08:00 Mechanical Ventilator Mechanical Ventilator 10/02/19 08:00 20 164/73 Mechanical Ventilator 60 10/02/19 08:00 98.9 70 21 164/73 (103) 100 10/02/19 08:00 77 10/02/19 08:00 60 10/02/19 07:45 69 21 166/74 (104) 99 10/02/19 07:30 74 23 157/63 (94) 100 10/02/19 07:28 71 24 100 Mechanical Ventilator 60 69 21 60 10/02/19 07:15 68 20 156/64 (94) 100 10/02/19 07:00 70 22 154/63 (93) 100 10/02/19 07:00 22 154/63 Mechanical Ventilator 60 10/02/19 06:45 71 21 148/61 (90) 97 10/02/19 06:30 74 22 152/62 (92) 100 10/02/19 06:15 73 21 143/60 (87) 98 10/02/19 06:00 69 21 143/63 (89) 98 10/02/19 06:00 20 143/60 Mechanical Ventilator 60 10/02/19 05:45 156/67 10/02/19 05:45 69 156/67 10/02/19 05:45 69 21 152/55 (87) 98 10/02/19 05:30 70 21 152/67 (95) 99 10/02/19 05:15 67 20 152/62 (92) 97 10/02/19 05:03 66 20 60 10/02/19 05:00 20 158/61 Mechanical Ventilator 60 10/02/19 05:00 66 20 158/61 (93) 97 10/02/19 04:45 64 20 146/62 (90) 97 10/02/19 04:30 66 20 139/61 (87) 97 10/02/19 04:15 65 20 156/62 (93) 98 10/02/19 04:00 Mechanical Ventilator Mechanical Ventilator 10/02/19 04:00 20 156/62 Mechanical Ventilator 60 10/02/19 04:00 60 10/02/19 04:00 98.8 65 19 164/65 (98) 99 10/02/19 03:45 66 10/02/19 03:45 66 20 150/62 (91) 98 10/02/19 03:30 67 20 60 10/02/19 03:30 67 20 153/64 (93) 98 10/02/19 03:15 72 21 162/67 (98) 99 10/02/19 03:00 73 22 160/71 (100) 99 10/02/19 03:00 20 162/67 Mechanical Ventilator 60 10/02/19 02:45 71 23 167/63 (97) 97 10/02/19 02:30 73 24 153/59 (90) 97 10/02/19 02:15 71 22 158/62 (94) 97 10/02/19 02:00 71 23 163/61 (95) 97 10/02/19 02:00 20 163/61 Mechanical Ventilator 60 10/02/19 01:45 70 22 168/63 (98) 98 10/02/19 01:30 72 21 161/65 (97) 97 10/02/19 01:15 72 21 167/65 (99) 96 10/02/19 01:00 73 22 165/64 (97) 96 10/02/19 01:00 24 165/64 Mechanical Ventilator 60 10/02/19 00:45 67 20 144/58 (86) 97 10/02/19 00:41 71 22 100 Mechanical Ventilator 60 72 23 74 10/02/19 00:30 67 24 173/64 (100) 94 10/02/19 00:15 67 19 154/60 (91) 93 10/02/19 00:07 20 153/55 Mechanical Ventilator 60 10/02/19 00:06 153/55 10/02/19 00:00 21 154/60 Mechanical Ventilator 60 10/02/19 00:00 99.1 65 23 153/55 (87) 95 10/02/19 00:00 Mechanical Ventilator Mechanical Ventilator 10/01/19 23:45 64 20 161/61 (94) 95 10/01/19 23:30 65 20 167/57 (93) 96 10/01/19 23:15 63 10/01/19 23:15 63 20 170/60 (96) 97 10/01/19 23:00 63 19 171/62 (98) 97 8/18/20 23:00 20 161/61 Mechanical Ventilator 60 818/20 22:45 65 18 166/61 (96) 96 1820 22:30 76 25 169/64 (99) 96 1820 22:30 69 21 60 818/20 22:15 70 20 149/56 (87) 95 1820 22:00 20 149/56 Mechanical Ventilator 60 20 22:00 67 20 157/63 (94) 97 20 21:45 66 20 169/58 (95) 98 18/20 21:30 67 20 173/60 (97) 98 20 21:23 66 175/63 81820 21:18 65 20 60 1820 21:15 70 21 175/63 (100) 97 20 21:00 21 175/63 Mechanical Ventilator 60 1820 21:00 70 21 167/66 (99) 95 20 20:45 75 21 160/59 (92) 95 20 20:38 66 171/57 1820 20:30 68 21 171/57 (95) 93 1820 20:15 65 20 166/58 (94) 97 20 20:00 98.9 66 23 175/62 (99) 95 1820 20:00 Mechanical Ventilator Mechanical Ventilator 20 20:00 20 166/58 Mechanical Ventilator 60 18/20 20:00 60 1820 19:45 63 20 180/62 (101) 97 20 19:30 66 20 100 Mechanical Ventilator 60 72 21 60 18/20 19:30 65 21 168/57 (94) 95 18/20 19:17 65 18/20 19:15 66 20 155/59 (91) 96 18/20 19:00 20 155/59 Mechanical Ventilator 60 18/20 19:00 70 23 155/56 (89) 95 18/20 18:30 73 25 171/61 (97) 95 18/20 18:00 66 21 159/57 (91) 94 20 18:00 21 159/57 Mechanical Ventilator 60 20 18:00 23 Mechanical Ventilator 818/20 17:47 158/55 20 17:35 65 21 158/55 (89) 95 10/01/19 17:00 66 20 152/56 (88) 95 10/01/19 17:00 20 152/56 Mechanical Ventilator 60 10/01/19 17:00 20 Mechanical Ventilator 10/01/19 16:38 69 20 70 10/01/19 16:30 66 21 156/73 (100) 95 10/01/19 16:00 60 10/01/19 16:00 72 10/01/19 16:00 20 122/49 Mechanical Ventilator 60 10/01/19 16:00 20 Mechanical Ventilator 10/01/19 16:00 Mechanical Ventilator Mechanical Ventilator 10/01/19 16:00 99.0 64 20 122/49 (73) 96 10/01/19 15:01 64 20 70 10/01/19 15:00 20 122/49 Mechanical Ventilator 60 10/01/19 15:00 20 125/54 Mechanical Ventilator 60 10/01/19 15:00 20 125/54 Mechanical Ventilator 60 10/01/19 15:00 20 10/01/19 15:00 20 10/01/19 15:00 20 Mechanical Ventilator 10/01/19 15:00 62 20 125/54 (77) 96 10/01/19 14:35 20 152/54 Mechanical Ventilator 10/01/19 14:35 19 10/01/19 14:30 63 20 132/54 (80) 96 10/01/19 14:00 19 10/01/19 14:00 19 10/01/19 14:00 66 19 135/55 (81) 99 10/01/19 13:29 72 137/53 10/01/19 13:00 72 18 136/57 (83) 98 10/01/19 13:00 18 Mechanical Ventilator 10/01/19 12:57 71 23 100 Mechanical Ventilator 70 73 20 70 10/01/19 12:45 73 21 146/58 (87) 100 10/01/19 12:30 69 20 154/64 (94) 97 10/01/19 12:15 67 20 142/56 (84) 99 10/01/19 12:03 115/69 10/01/19 12:00 61 10/01/19 12:00 60 10/01/19 12:00 98.6 59 20 122/49 (73) 96 10/01/19 12:00 20 T-piece 10/01/19 12:00 Mechanical Ventilator Mechanical Ventilator 10/01/19 11:09 61 20 70 10/01/19 11:00 62 20 118/45 (69) 96 10/01/19 10:30 62 20 126/51 (76) 96 10/01/19 10:00 62 16 117/46 (69) 99 10/01/19 10:00 16 Mechanical Ventilator 10/01/19 10:00 19 146/46 Mechanical Ventilator 70 10/01/19 09:30 64 20 129/50 (76) 100 10/01/19 09:22 63 20 70 10/01/19 09:00 67 19 127/46 (73) 99 10/01/19 08:59 19 160/62 Mechanical Ventilator 70 10/01/19 08:57 69 136/54 10/01/19 08:30 66 20 137/51 (79) 97 10/01/19 08:00 61 10/01/19 08:00 19 Mechanical Ventilator 10/01/19 08:00 19 160/62 Mechanical Ventilator 70 10/01/19 08:00 65 19 160/62 (94) 89 10/01/19 08:00 Mechanical Ventilator Mechanical Ventilator 10/01/19 07:30 65 20 153/59 (90) 92 10/01/19 07:22 20 151/61 Mechanical Ventilator 10.0 70 10/01/19 07:21 20 145/60 Mechanical Ventilator 70 10/01/19 07:03 59 20 97 Mechanical Ventilator 70 62 20 70 Intake and Output 10/02/19 10/03/19 19:00 07:00 Intake Total 864 ml 898.0 ml Output Total 355 ml 376 ml Balance 509 ml 522.0 ml Intake Free Water 100 ml IV Total 254 ml 358.0 ml Tube Feeding 480 ml 480 ml Other 30 ml 60 ml Output Urine Total 355 ml 376 ml Labs Test 09/30/19 08:24 10/01/19 05:00 10/01/19 07:07 10/02/19 04:25 Arterial Blood pH 7.383 (7.350-7.450) 7.470 (7.350-7.450) Arterial Blood Partial Pressure CO2 44.8 mmHg (35.0-45.0) 40.4 mmHg (35.0-45.0) Arterial Blood Partial Pressure O2 54.0 mmHg (75.0-100.0) 68.4 mmHg (75.0-100.0) Arterial Blood HCO3 26.1 mmol/L (22.0-26.0) 28.7 mmol/L (22.0-26.0) Arterial Blood Oxygen Saturation 86.8 % (95-100) 93.8 % (95-100) Arterial Blood Base Excess 0.8 (-2-2) 4.7 (-2-2) Rojas Test Positive Positive White Blood Count 7.4 K/UL (4.8-10.8) 7.1 K/UL (4.8-10.8) Red Blood Count 2.92 M/UL (4.20-5.40) 2.96 M/UL (4.20-5.40) Hemoglobin 9.1 G/DL (12.0-16.0) 9.2 G/DL (12.0-16.0) Hematocrit 28.3 % (37.0-47.0) 28.5 % (37.0-47.0) Mean Corpuscular Volume 97 FL (80-99) 97 FL (80-99) Mean Corpuscular Hemoglobin 31.3 PG (27.0-31.0) 31.1 PG (27.0-31.0) Mean Corpuscular Hemoglobin Concent 32.3 G/DL (32.0-36.0) 32.2 G/DL (32.0-36.0) Red Cell Distribution Width 15.6 % (11.6-14.8) 14.7 % (11.6-14.8) Platelet Count 287 K/UL (150-450) 304 K/UL (150-450) Mean Platelet Volume 5.9 FL (6.5-10.1) 5.8 FL (6.5-10.1) Neutrophils (%) (Auto) 74.7 % (45.0-75.0) 71.6 % (45.0-75.0) Lymphocytes (%) (Auto) 19.3 % (20.0-45.0) 18.3 % (20.0-45.0) Monocytes (%) (Auto) 5.0 % (1.0-10.0) 5.2 % (1.0-10.0) Eosinophils (%) (Auto) 0.4 % (0.0-3.0) 4.4 % (0.0-3.0) Basophils (%) (Auto) 0.6 % (0.0-2.0) 0.6 % (0.0-2.0) Sodium Level 138 MMOL/L (136-145) 139 MMOL/L (136-145) Potassium Level 3.2 MMOL/L (3.5-5.1) 3.2 MMOL/L (3.5-5.1) Chloride Level 99 MMOL/L (98-107) 102 MMOL/L (98-107) Carbon Dioxide Level 29 MMOL/L (21-32) 30 MMOL/L (21-32) Anion Gap 10 mmol/L (5-15) 7 mmol/L (5-15) Blood Urea Nitrogen 50 mg/dL (7-18) 61 mg/dL (7-18) Creatinine 1.9 MG/DL (0.55-1.30) 2.2 MG/DL (0.55-1.30) Estimat Glomerular Filtration Rate 28.3 mL/min (>60) 23.9 mL/min (>60) Glucose Level 105 MG/DL (74-106) 90 MG/DL (74-106) Calcium Level 8.1 MG/DL (8.5-10.1) 8.7 MG/DL (8.5-10.1) Phosphorus Level 4.0 MG/DL (2.5-4.9) 4.0 MG/DL (2.5-4.9) Magnesium Level 2.2 MG/DL (1.8-2.4) 2.3 MG/DL (1.8-2.4) Total Bilirubin 0.3 MG/DL (0.2-1.0) 0.3 MG/DL (0.2-1.0) Aspartate Amino Transf (AST/SGOT) 13 U/L (15-37) 19 U/L (15-37) Alanine Aminotransferase (ALT/SGPT) 7 U/L (12-78) 10 U/L (12-78) Alkaline Phosphatase 145 U/L (46-116) 131 U/L (46-116) C-Reactive Protein, Quantitative 17.2 mg/dL (0.00-0.90) 11.9 mg/dL (0.00-0.90) Pro-B-Type Natriuretic Peptide > 53527 pg/mL (0-125) > 47558 pg/mL (0-125) Total Protein 6.7 G/DL (6.4-8.2) 6.4 G/DL (6.4-8.2) Albumin 1.8 G/DL (3.4-5.0) 1.6 G/DL (3.4-5.0) Globulin 4.9 g/dL 4.8 g/dL Albumin/Globulin Ratio 0.4 (1.0-2.7) 0.3 (1.0-2.7) Random Gentamicin Level 0.8 ug/mL Hepatitis B Surface Antigen Neg (NEGATIVE) Hepatitis B Surface Antibody, Quant <8 mIU/mL Hepatitis C Antibody 0.22 S/CO (<0.80) Test 10/02/19 07:57 10/03/19 02:50 Arterial Blood pH 7.454 (7.350-7.450) Arterial Blood Partial Pressure CO2 38.1 mmHg (35.0-45.0) Arterial Blood Partial Pressure O2 67.0 mmHg (75.0-100.0) Arterial Blood HCO3 26.1 mmol/L (22.0-26.0) Arterial Blood Oxygen Saturation 93.1 % (95-100) Arterial Blood Base Excess 2.2 (-2-2) Rojas Test Positive White Blood Count 6.9 K/UL (4.8-10.8) Red Blood Count 3.09 M/UL (4.20-5.40) Hemoglobin 9.5 G/DL (12.0-16.0) Hematocrit 29.9 % (37.0-47.0) Mean Corpuscular Volume 96 FL (80-99) Mean Corpuscular Hemoglobin 30.7 PG (27.0-31.0) Mean Corpuscular Hemoglobin Concent 31.8 G/DL (32.0-36.0) Red Cell Distribution Width 14.3 % (11.6-14.8) Platelet Count 354 K/UL (150-450) Mean Platelet Volume 5.7 FL (6.5-10.1) Neutrophils (%) (Auto) 65.7 % (45.0-75.0) Lymphocytes (%) (Auto) 22.0 % (20.0-45.0) Monocytes (%) (Auto) 6.8 % (1.0-10.0) Eosinophils (%) (Auto) 4.6 % (0.0-3.0) Basophils (%) (Auto) 0.8 % (0.0-2.0) Sodium Level 126 MMOL/L (136-145) Potassium Level 2.8 MMOL/L (3.5-5.1) Chloride Level 101 MMOL/L (98-107) Carbon Dioxide Level 29 MMOL/L (21-32) Anion Gap -4 mmol/L (5-15) Blood Urea Nitrogen 67 mg/dL (7-18) Creatinine 2.2 MG/DL (0.55-1.30) Estimat Glomerular Filtration Rate 23.9 mL/min (>60) Glucose Level 105 MG/DL (74-106) Uric Acid 5.3 MG/DL (2.6-7.2) Calcium Level 8.7 MG/DL (8.5-10.1) Phosphorus Level 4.1 MG/DL (2.5-4.9) Magnesium Level 2.4 MG/DL (1.8-2.4) Total Bilirubin 0.3 MG/DL (0.2-1.0) Aspartate Amino Transf (AST/SGOT) 25 U/L (15-37) Alanine Aminotransferase (ALT/SGPT) 6 U/L (12-78) Alkaline Phosphatase 136 U/L (46-116) C-Reactive Protein, Quantitative 10.9 mg/dL (0.00-0.90) Pro-B-Type Natriuretic Peptide > 31747 pg/mL (0-125) Total Protein 6.5 G/DL (6.4-8.2) Albumin 1.6 G/DL (3.4-5.0) Globulin 4.9 g/dL Albumin/Globulin Ratio 0.3 (1.0-2.7) Height (Feet): 5 Height (Inches): 5.00 Weight (Pounds): 135 Objective Physical Exam: Vitals: reviewed General: NAD HEENT: nc, at Neck: supple ++tracn/vent Chest: clear breath sounds bilaterally Cardiovascular: RRR, no s3, s4 Abdomen: soft, nontender, nd +gtube Extremities: no cce, normal range of motion Neuro: alert Evan Muhammad MD Oct 03, 2019 07:03
--- NOTE | 2019-10-03 07:05 | Infectious Diseases Prog Note ---
Assessment/Plan 49yo F with: Acute hypoxic resp failure: Now on vent, worsening, FiO2 100% > 80% 09/27 Pneumonia, COVID19 neg x3 - worsening MDR PsA pneumonia 09/29 CXR: Bilateral edema versus infiltrates appears slightly worse than on the prior study. There is probably some pleural fluid on the left. 09/26 S/P thoracentesis, 900cc removed, only 67 WBC in fluid analysis, unlikely empyema 09/26 CXR: Worsening R perihilar opacity 09/26 BCx NTD 09/24 CXR: Previously demonstrated right lateral basilar lucency is no longer evident, was presumably a skin fold artifact. Bilateral infiltrates and left pleural effusion are probably unchanged allowing for slight differences in technique. 09/22 Resp cx + MDR PsA (S-gent; I-colistin; R-levofloxacin, Zosyn, angelo) 09/22 BCx NTD 09/22 CXR: worsening BL pna 09/22 UA w/ persistent pyuria, now on HD, UCx +VRE, most likely colonizer as improving wo tx for this 09/19 V/Q scan, low probability of PE 09/18 Rapid COVID PCR neg 09/18 CT chest: Markedly suboptimal examination due to lack of IV contrast material. Bilateral pleural effusions, right greater than left, with bilateral lower lobe consolidation or volume loss. Ground glass densities in the upper lobes bilaterally. This is not specific. Tracheostomy. Increased superior mediastinal density. Stability of adenopathy cannot be excluded. Atherosclerotic change. Gastrostomy. Ascites. Left renal stent with left hydronephrosis and renal atrophy. 09/17 Chest US: Trace right and small left pleural effusions. No safe window identified for bedside thoracentesis. Note that the majority of the left pleural effusion is subpulmonic. 09/16 CXR: Worsening of right lung infiltrates and right effusion. V. duplex: NO DVT D-dimer elevated 09/15 Rapid COVID PCR neg 09/15 Sp cx ESBL P. mirablis 09/14 CXR: Bilateral airspace opacities, preferentially involving the right lung, consistent with multifocal infiltrate. Trace bilateral pleural effusions. No pneumothorax. Rapid COVID PCR neg GPC bacteremia, real vs contaminant; does have hx of infected PPM- could be a possibility- ro endocarditis 09/14 Bcx / S. epidermis; 09/15 Bcx NTD 2d echo: no vegetations seen UTI 09/14 u/a wbc tnct, nit neg, leuk +3; ucx >100k MDR P. stuarti (S Ceftriaxone, Meropenem) 09/22 UA w/ ongoing pyuria, unchanged Unstageable sacral ulceration Afebrile Leukocytosis, mild; fluctuates bt 12-13 JAVIER on CKD --> now on HD Renal US: Limited exam due to abdominal ascites and shadowing from bowel gas. CT recommended for more sensitive evaluation. Moderate right hydronephrosis. Increased renal parenchymal echogenicity suggesting intrinsic/ medical renal disease. Question indwelling left ureteral stent versus artifact. Bladder not visualized. 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 epi-11/2018, sp > 6weeks IV vancomycin 11/27 SP ABBIE: no evidence for vegetation on any of the valves 11/26/18 SP PPM removal: OR findings:The fibrous capsule enclosing the generator was then opened and there was a [id number] amount of yellowish fluid drainage. The generator was then removed.Atrial and ventricular leads were detached. The necrotic tissue of the pocket was then removed and the pocket was flushed with an antibiotic solution. Capsule, wound tissue and lead tip cx: Neg 2d echo: no vegetation seen US chest: 4.6 x 3.4 x 0.9 cm hypoechoic/anechoic area overlying left chest pacemaker power pack. This could represent either a discrete fluid collection or a focal area of very edematous tissue. Infected fluid pocket also possible. 11/18 Bcx 3/4 S. epi; 11/20 Bcx neg; 11/24 Bcx Neg; 11/27 Bcx Neg Hx of PNA 11/2019? sp cx PsA (arnett S), ABC (I Ceftriaxone; otherwise negative) Sp cx MRSA, ABC (I Ceftriaxone; otherwise S) PMH: Afib HTN Dysphagia sp GT Aortic dissection s/p repair 2017, S/p PPM Parkinson's Disease Schizophrenia Anxiety COPD Chronic resp failure s/p trach Hx of tracheal bleeding [place] resident ([facility]) Plan: Cont Zerbaxa #6/6 (abx day #7) for MDR PsA pneumonia Cont gentamicin per pharmacy #08/19 for now as improved and awaiting sensitivities for Zerbaxa Will stop all abx tomorrow Trend resp status, leukocytosis D/w micro about sending MDR PsA out for further sensi to Zerbaxa and Avycaz[place] [facility] [place] out of Tuesday 09[place]26, d/w Micro today, won't have results until 10/06 ([phone]) Aggressive volume removal as tolerated by HD, BNP >35,000 09/29 SP vanco #15 for S.epi in BCx 09/27 SP angelo #13 09/16 SP Cefepime #3, Levaquin #3 Monitor CBC/CMP, temperatures ICU/ trach/ peg care Aspiration precautions D/w RN Thank you for this consultation. Will continue to follow along with you. Subjective Allergies: Coded Allergies: No Known Allergies (Unverified , 10/10/17) AF Remains on vent, FiO2 55% WBC 6 Eyes open to voice, minimally interactive Objective Last 24 Hour Vital Signs Date Time Temp Pulse Resp B/P (MAP) Pulse Ox O2 Delivery O2 Flow Rate FiO2 10/03/19 06:45 71 22 149/60 (89) 88 10/03/19 06:30 71 19 150/65 (93) 93 10/03/19 06:15 79 23 156/59 (91) 94 10/03/19 06:15 21 150/65 Mechanical Ventilator 55 10/03/19 06:00 75 21 178/63 (101) 99 10/03/19 06:00 20 156/59 Mechanical Ventilator 55 10/03/19 05:59 137/67 10/03/19 05:58 70 137/67 10/03/19 05:45 72 21 137/67 (90) 93 10/03/19 05:30 72 22 147/61 (89) 93 10/03/19 05:15 73 21 133/63 (86) 94 10/03/19 05:09 74 21 55 10/03/19 05:00 73 20 142/64 (90) 94 10/03/19 05:00 20 133/63 Mechanical Ventilator 55 10/03/19 04:45 26 143/62 Mechanical Ventilator 55 10/03/19 04:45 76 17 157/66 (96) 94 10/03/19 04:30 72 19 143/62 (89) 96 10/03/19 04:15 71 15 157/68 (97) 96 10/03/19 04:00 98.9 75 16 171/63 (99) 93 10/03/19 04:00 18 157/68 Mechanical Ventilator 55 10/03/19 04:00 60 10/03/19 04:00 Mechanical Ventilator Mechanical Ventilator 10/03/19 03:45 67 19 154/64 (94) 94 10/03/19 03:30 66 19 148/64 (92) 92 10/03/19 03:25 67 10/03/19 03:15 66 20 136/63 (87) 91 10/03/19 03:08 75 20 55 10/03/19 03:00 66 20 136/63 (87) 93 10/03/19 03:00 20 136/63 Mechanical Ventilator 55 10/03/19 02:45 68 18 138/63 (88) 93 10/03/19 02:30 69 17 148/64 (92) 95 10/03/19 02:15 70 18 140/66 (90) 94 10/03/19 02:00 21 140/66 Mechanical Ventilator 55 10/03/19 02:00 70 20 140/68 (92) 94 10/03/19 01:45 69 21 145/72 (96) 94 10/03/19 01:30 70 21 148/64 (92) 94 10/03/19 01:15 69 21 138/69 (92) 93 10/03/19 01:00 20 138/63 Mechanical Ventilator 55 10/03/19 01:00 71 20 138/63 (88) 95 10/03/19 00:45 69 20 145/61 (89) 92 10/03/19 00:30 66 20 135/60 (85) 93 10/03/19 00:30 65 20 94 Mechanical Ventilator 55 68 20 45 10/03/19 00:15 66 20 145/64 (91) 92 10/03/19 00:00 97.8 64 20 139/74 (95) 92 10/03/19 00:00 20 145/64 Mechanical Ventilator 55 10/03/19 00:00 Mechanical Ventilator Mechanical Ventilator 10/02/19 23:45 65 20 137/61 (86) 93 10/02/19 23:32 65 10/02/19 23:30 65 20 121/58 (79) 92 10/02/19 23:15 68 20 141/61 (87) 94 10/02/19 23:00 20 132/63 Mechanical Ventilator 55 8/19/20 23:00 68 20 132/63 (86) 94 20 22:45 68 19 145/64 (91) 95 20 22:41 70 20 50 20 22:30 66 20 130/62 (84) 94 20 22:15 67 20 135/61 (85) 94 20 22:00 20 138/60 Mechanical Ventilator 55 10/02/19 22:00 66 20 138/60 (86) 95 10/02/19 21:53 152/65 20 21:53 66 152/35 10/02/19 21:45 67 20 152/65 (94) 94 10/02/19 21:30 68 20 142/68 (92) 94 10/02/19 21:15 69 20 146/65 (92) 94 20 21:00 71 21 137/66 (89) 94 10/02/19 21:00 20 146/65 Mechanical Ventilator 55 10/02/19 20:58 74 21 55 10/02/19 20:46 77 144/60 10/02/19 20:45 75 22 145/66 (92) 94 10/02/19 20:30 77 23 144/60 (88) 95 10/02/19 20:15 71 20 130/59 (82) 93 10/02/19 20:00 97.5 73 21 149/65 (93) 93 20 20:00 21 130/59 Mechanical Ventilator 55 20 20:00 60 20 20:00 Mechanical Ventilator Mechanical Ventilator 10/02/19 19:45 71 20 147/69 (95) 94 20 19:43 71 19/20 19:30 69 20 140/67 (91) 97 10/02/19 19:27 70 20 96 Mechanical Ventilator 55 71 20 45 10/02/19 19:15 71 21 147/66 (93) 92 20 19:00 73 23 142/63 (89) 94 20 19:00 22 154/64 Mechanical Ventilator 22 10/02/19 18:45 73 19 158/104 (122) 96 10/02/19 18:30 72 22 154/64 (94) 91 20 18:15 71 22 158/67 (97) 91 8/19/20 18:00 23 159/69 Mechanical Ventilator 55 10/02/19 18:00 72 23 159/68 (98) 91 10/02/19 17:45 73 22 152/63 (92) 91 10/02/19 17:30 70 21 137/60 (85) 90 10/02/19 17:15 74 23 151/64 (93) 91 10/02/19 17:13 55 10/02/19 17:09 74 21 60 10/02/19 17:00 74 22 142/62 (88) 92 10/02/19 17:00 22 142/62 Mechanical Ventilator 60 10/02/19 16:45 73 23 153/63 (93) 91 10/02/19 16:30 72 21 155/66 (95) 92 10/02/19 16:15 73 23 152/65 (94) 93 10/02/19 16:00 75 10/02/19 16:00 99.4 78 23 154/65 (94) 97 10/02/19 16:00 22 154/65 Mechanical Ventilator 60 10/02/19 16:00 60 10/02/19 16:00 Mechanical Ventilator Mechanical Ventilator 10/02/19 15:45 74 22 149/64 (92) 94 10/02/19 15:30 75 23 149/65 (93) 95 10/02/19 15:28 73 22 60 10/02/19 15:15 74 22 148/62 (90) 94 10/02/19 15:01 157/61 10/02/19 15:00 74 22 157/70 (99) 93 10/02/19 15:00 22 154/85 Mechanical Ventilator 60 10/02/19 14:56 74 157/61 10/02/19 14:55 23 157/61 Mechanical Ventilator 60 10/02/19 14:45 74 23 157/61 (93) 93 10/02/19 14:30 75 23 156/63 (94) 93 10/02/19 14:15 75 23 154/67 (96) 92 10/02/19 14:00 25 156/69 Mechanical Ventilator 50 10/02/19 14:00 74 24 156/69 (98) 90 10/02/19 13:45 74 25 159/61 (93) 89 10/02/19 13:30 77 24 160/64 (96) 90 10/02/19 13:15 74 27 160/64 (96) 91 10/02/19 13:00 22 166/58 Mechanical Ventilator 50 10/02/19 13:00 69 23 166/58 (94) 94 10/02/19 12:45 67 18 157/62 (93) 97 10/02/19 12:44 165/60 10/02/19 12:44 67 22 97 Mechanical Ventilator 45 67 21 45 10/02/19 12:30 64 20 165/60 (95) 96 10/02/19 12:15 64 21 163/62 (95) 97 10/02/19 12:00 50 10/02/19 12:00 99.7 65 20 160/62 (94) 97 10/02/19 12:00 20 160/62 Mechanical Ventilator 50 10/02/19 12:00 Mechanical Ventilator Mechanical Ventilator 10/02/19 12:00 66 10/02/19 11:45 66 21 166/65 (98) 97 10/02/19 11:30 65 20 160/63 (95) 99 10/02/19 11:15 66 21 168/63 (98) 99 10/02/19 11:00 21 173/63 Mechanical Ventilator 50 10/02/19 11:00 68 21 173/63 (99) 98 10/02/19 10:45 71 23 180/69 (106) 98 10/02/19 10:38 68 21 60 10/02/19 10:30 74 20 191/74 (113) 96 10/02/19 10:15 69 20 186/66 (106) 97 10/02/19 10:00 68 20 187/66 (106) 96 10/02/19 10:00 20 187/66 Mechanical Ventilator 60 10/02/19 09:48 68 20 184/63 (103) 95 10/02/19 09:45 69 20 184/65 (104) 96 10/02/19 09:38 68 182/64 10/02/19 09:30 69 20 182/64 (103) 96 10/02/19 09:20 73 24 60 10/02/19 09:15 70 20 169/61 (97) 94 10/02/19 09:00 72 20 163/66 (98) 94 10/02/19 09:00 20 163/66 Mechanical Ventilator 60 10/02/19 08:45 75 20 163/68 (99) 96 10/02/19 08:30 70 20 147/64 (91) 95 10/02/19 08:15 80 19 152/65 (94) 96 10/02/19 08:00 Mechanical Ventilator Mechanical Ventilator 10/02/19 08:00 20 164/73 Mechanical Ventilator 60 10/02/19 08:00 98.9 70 21 164/73 (103) 100 10/02/19 08:00 77 10/02/19 08:00 60 10/02/19 07:45 69 21 166/74 (104) 99 10/02/19 07:30 74 23 157/63 (94) 100 10/02/19 07:28 71 24 100 Mechanical Ventilator 60 69 21 60 10/02/19 07:15 68 20 156/64 (94) 100 Height (Feet): 5 Height (Inches): 5.00 Weight (Pounds): 135 Gen: Older woman, on vent CV: RRR Pulm: CTAB anteriorly on vent Abd: Soft, non-distended Ext: No c/c Neuro: Minimally interactive Laboratory Tests Test 10/02/19 07:57 10/03/19 02:50 Arterial Blood pH 7.454 (7.350-7.450) Arterial Blood Partial Pressure CO2 38.1 mmHg (35.0-45.0) Arterial Blood Partial Pressure O2 67.0 mmHg (75.0-100.0) L Arterial Blood HCO3 26.1 mmol/L (22.0-26.0) H Arterial Blood Oxygen Saturation 93.1 % (95-100) L Arterial Blood Base Excess 2.2 (-2-2) H Rojas Test Positive White Blood Count 6.9 K/UL (4.8-10.8) Red Blood Count 3.09 M/UL (4.20-5.40) L Hemoglobin 9.5 G/DL (12.0-16.0) L Hematocrit 29.9 % (37.0-47.0) L Mean Corpuscular Volume 96 FL (80-99) Mean Corpuscular Hemoglobin 30.7 PG (27.0-31.0) Mean Corpuscular Hemoglobin Concent 31.8 G/DL (32.0-36.0) L Red Cell Distribution Width 14.3 % (11.6-14.8) Platelet Count 354 K/UL (150-450) Mean Platelet Volume 5.7 FL (6.5-10.1) L Neutrophils (%) (Auto) 65.7 % (45.0-75.0) Lymphocytes (%) (Auto) 22.0 % (20.0-45.0) Monocytes (%) (Auto) 6.8 % (1.0-10.0) Eosinophils (%) (Auto) 4.6 % (0.0-3.0) H Basophils (%) (Auto) 0.8 % (0.0-2.0) Sodium Level 126 MMOL/L (136-145) #L Potassium Level 2.8 MMOL/L (3.5-5.1) L Chloride Level 101 MMOL/L (98-107) Carbon Dioxide Level 29 MMOL/L (21-32) Anion Gap -4 mmol/L (5-15) L Blood Urea Nitrogen 67 mg/dL (7-18) H Creatinine 2.2 MG/DL (0.55-1.30) H Estimat Glomerular Filtration Rate 23.9 mL/min (>60) Glucose Level 105 MG/DL (74-106) Uric Acid 5.3 MG/DL (2.6-7.2) Calcium Level 8.7 MG/DL (8.5-10.1) Phosphorus Level 4.1 MG/DL (2.5-4.9) Magnesium Level 2.4 MG/DL (1.8-2.4) Total Bilirubin 0.3 MG/DL (0.2-1.0) Aspartate Amino Transf (AST/SGOT) 25 U/L (15-37) Alanine Aminotransferase (ALT/SGPT) 6 U/L (12-78) L Alkaline Phosphatase 136 U/L (46-116) H C-Reactive Protein, Quantitative 10.9 mg/dL (0.00-0.90) H Pro-B-Type Natriuretic Peptide > 19588 pg/mL (0-125) H Total Protein 6.5 G/DL (6.4-8.2) Albumin 1.6 G/DL (3.4-5.0) L Globulin 4.9 g/dL Albumin/Globulin Ratio 0.3 (1.0-2.7) L Current Medications Medications (Trade) Dose Ordered Sig/Penny Route PRN Reason Start Time Stop Time Status Last Admin Dose Admin Acetaminophen (Tylenol) 325 mg Q6H PRN GT Temp >100.5 09/23/19 10:45 10/23/19 10:44 09/23/19 18:55 Albuterol/ Ipratropium (Albuterol/ Ipratropium) 3 ml Q6HRT HHN 09/30/19 13:00 10/04/19 12:59 10/03/19 00:30 Ceftolozane/ Tazobactam 0.45 gm/Sodium Chloride 110 ml @ 110 mls/hr Q8H IV 09/28/19 20:00 10/05/19 19:59 10/03/19 03:43 Chlorhexidine Gluconate (Ling-Hex 2%) 1 applic DAILY@2000 TOPIC 09/23/19 20:00 12/22/19 19:59 10/02/19 20:45 Diltiazem HCl (Cardizem Tab) 30 mg EVERY 8 HOURS GT 09/25/19 14:00 10/15/19 11:59 10/03/19 05:58 Docusate Sodium (Colace) 100 mg Q8H GT 09/29/19 08:30 10/29/19 08:29 10/02/19 23:12 Epoetin Gleacio (Epoetin Gelacio(ESRD on dialysis)) 10,000 unit MON-MON-MON SUBQ 09/25/19 21:00 12/24/19 20:59 10/02/19 20:45 Fentanyl Citrate 250 ml @ 0 mls/hr Q24H IV 10/01/19 14:30 10/03/19 14:29 10/02/19 14:55 Gentamicin Protocol (Gentamicin pharmacy to dose) 1 ea DAILY PRN MISC Per rx protocol 09/28/19 13:15 10/28/19 13:14 Heparin Sodium (Porcine) (Heparin 5000 units/ml) 5,000 units EVERY 12 HOURS SUBQ 09/17/19 21:00 10/30/19 08:59 10/02/19 20:47 Hydralazine HCl (Apresoline) 10 mg Q4H PRN IV BP over 160 systolic 09/17/19 11:15 12/14/19 11:14 09/24/19 15:55 Lansoprazole (Prevacid) 30 mg Q12HR GT 09/27/19 21:00 10/27/19 20:59 10/02/19 20:45 Metoclopramide HCl (Reglan) 10 mg Q8H IVP 09/29/19 14:00 10/29/19 13:59 10/03/19 05:59 Metoprolol Tartrate (Lopressor) 25 mg EVERY 12 HOURS GT 09/25/19 21:00 12/14/19 20:59 10/02/19 20:46 Midazolam HCl (Versed 2mg/2ml vial) 1 mg Q4H PRN IVP For Anxiety 09/21/19 09:30 12/20/19 09:29 09/27/19 08:57 Minoxidil (Loniten) 2.5 mg Q8HR GT 10/02/19 14:00 12/31/19 13:59 10/03/19 05:59 Olanzapine (ZyPREXA) 2.5 mg DAILY GT 09/18/19 09:00 10/30/19 08:59 10/02/19 09:38 Polyethylene Glycol (Miralax) 17 gm BEDTIME ORAL 10/01/19 21:00 10/31/19 20:59 10/02/19 20:45 Sertraline HCl (Zoloft) 100 mg BEDTIME GT 09/17/19 21:00 10/15/19 20:59 10/02/19 20:46 Sorbitol (sorbitoL) 30 ml EVERY 6 HOURS PRN GT Constipation 09/29/19 18:00 10/29/19 17:59 10/01/19 00:44 Tramadol HCl (Ultram) 25 mg Q6HR GT 09/27/19 09:45 10/04/19 09:44 10/03/19 05:59 Ro Pack M.D. Oct 03, 2019 07:05
--- NOTE | 2019-10-03 08:45 | Nephrology Progress Note ---
Assessment/Plan Problem List: (1) JAVIER (acute kidney injury) (2) Renal failure (ARF), acute on chronic (3) Dehydration (4) Electrolyte imbalance (5) Anemia (6) Respiratory failure, acute and chronic (7) COPD with exacerbation Assessment Patient is presented with sepsis and pneumonia and UTI Patient has acute renal failure, possible underlying chronic kidney failure Severe anemia Electrolyte imbalances: Hyponatremia, hypo-kalemia Chronic respiratory failure, COPD exacerbation Plan October 02: Lab reviewed. Potassium supplement IV given. 3% saline 250 cc ordered. Responded well to Zaroxolyn yesterday. Will continue to monitor electrolytes and renal parameters. Will increase minoxidil to 2.5 mg every 6 hours. October 01: Labs reviewed. Potassium supplement given. Last dialysis September 29. Serum creatinine rising gradually. Urine output very low. Patient appears to continue to need dialysis at least twice a week. Blood pressure still running high I will switch the hydralazine to minoxidil. We will give 1 dose of Zaroxolyn 10 mg today. Will check renal parameters tomorrow. September 30: Patient dialyzed yesterday. 3 L removed. Labs reviewed. Potassium supplement given. Continue per consultants. It appears that the patient required dialysis 2-3 times a week. September 29: Lab reviewed. Chest x-ray result noted. Continues to have pulmonary congestion. Urine output low. Will attempt dialysis again today with ultrafiltration. September 28: Lab reviewed. ABG reviewed. Potassium supplement given. No dialysis at this point. Will eval patient status and renal parameters daily. September 27: Lab reviewed. Last dialysis September 25. Continue to monitor renal parameters. Hemodialysis as needed. September 26: Lab reviewed. Dialyzed yesterday. Potassium supplement given. Medication list reviewed. Will observe renal parameters and arrange for dialysis as needed. September 25: Lab reviewed. Currently on hemodialysis. Tolerating well. Stable from renal standpoint of view. Blood pressure medication adjusted by increasing hydralazine. September 24: Lab reviewed. ABG reviewed. Both lab and ABG much improved. Patient was dialyzed yesterday. We will attempt dialysis tomorrow again. Will adjust that blood pressure medication dosages. September 23: Lab reviewed. ABG reviewed. Patient acidotic. IV bicarb 1 dose is given. Patient has dialysis catheter. Will order dialysis for ultrafiltration and correction of acid-base. Discussed with ERASMO Mohr. September 22: Labs reviewed. Potassium high. Kayexalate and Reglan given. Will discuss with the consultants regarding initiation of dialysis. September 21: Patient is being sedated. Labs reviewed. Potassium supplement discontinued. GFR 20. Continue per current treatment plan. Dialysis and ultrafiltration is a consideration. September 20: Patient periodically agitated. Labs reviewed. Creatinine 2.4. Medication reviewed. Continue per consultants. Calculated creatinine clearance 21. May need isolated ultrafiltration on dialysis. Will discuss with PMD. Meanwhile hemoglobin is lower, defer transfusion to PMD. September 19: DC IV fluid. Zaroxolyn via GT tube. Potassium supplement. Attempt to diurese. Chest CT as bilateral pleural effusion. If diuresis unsuccessful, will consider dialysis and ultrafiltration. September 18: Potassium supplement IV given. Hemoglobin stable. Patient remains full code. Continue per consultants. Previously: Potassium supplement IV Slow IV hydration Epogen subcu Adjust blood pressure medication IV fluid, rate adjusted Norman catheter, intake and output Monitor renal parameters Avoid nephrotoxic's Antibiotics Per orders 2D echocardiogram Kidney ultrasound Subjective ROS Limited/Unobtainable: Yes Objective Objective Last 24 Hour Vital Signs Date Time Temp Pulse Resp B/P (MAP) Pulse Ox O2 Delivery O2 Flow Rate FiO2 10/03/19 08:40 67 20 45 10/03/19 07:29 68 21 98 Mechanical Ventilator 45 69 20 45 10/03/19 07:15 72 25 159/62 (94) 85 10/03/19 07:00 24 155/63 Mechanical Ventilator 55 10/03/19 07:00 72 24 155/63 (93) 86 10/03/19 06:45 71 22 149/60 (89) 88 10/03/19 06:30 71 19 150/65 (93) 93 10/03/19 06:15 79 23 156/59 (91) 94 10/03/19 06:15 21 150/65 Mechanical Ventilator 55 10/03/19 06:00 75 21 178/63 (101) 99 10/03/19 06:00 20 156/59 Mechanical Ventilator 55 10/03/19 05:59 137/67 10/03/19 05:58 70 137/67 10/03/19 05:45 72 21 137/67 (90) 93 10/03/19 05:30 72 22 147/61 (89) 93 10/03/19 05:15 73 21 133/63 (86) 94 10/03/19 05:09 74 21 55 8 05:00 73 20 142/64 (90) 94 10/03/19 05:00 20 133/63 Mechanical Ventilator 55 10/03/19 04:45 26 143/62 Mechanical Ventilator 55 10/03/19 04:45 76 17 157/66 (96) 94 10/03/19 04:30 72 19 143/62 (89) 96 10/03/19 04:15 71 15 157/68 (97) 96 10/03/19 04:00 98.9 75 16 171/63 (99) 93 10/03/19 04:00 18 157/68 Mechanical Ventilator 55 10/03/19 04:00 60 8 04:00 Mechanical Ventilator Mechanical Ventilator 10/03/19 03:45 67 19 154/64 (94) 94 10/03/19 03:30 66 19 148/64 (92) 92 10/03/19 03:25 67 8 03:15 66 20 136/63 (87) 91 10/03/19 03:08 75 20 55 10/03/19 03:00 66 20 136/63 (87) 93 10/03/19 03:00 20 136/63 Mechanical Ventilator 55 10/03/19 02:45 68 18 138/63 (88) 93 10/03/19 02:30 69 17 148/64 (92) 95 10/03/19 02:15 70 18 140/66 (90) 94 10/03/19 02:00 21 140/66 Mechanical Ventilator 55 10/03/19 02:00 70 20 140/68 (92) 94 10/03/19 01:45 69 21 145/72 (96) 94 10/03/19 01:30 70 21 148/64 (92) 94 10/03/19 01:15 69 21 138/69 (92) 93 10/03/19 01:00 20 138/63 Mechanical Ventilator 55 8 01:00 71 20 138/63 (88) 95 10/03/19 00:45 69 20 145/61 (89) 92 10/03/19 00:30 66 20 135/60 (85) 93 10/03/19 00:30 65 20 94 Mechanical Ventilator 55 68 20 45 10/03/19 00:15 66 20 145/64 (91) 92 820 00:00 97.8 64 20 139/74 (95) 92 10/03/19 00:00 20 145/64 Mechanical Ventilator 55 10/03/19 00:00 Mechanical Ventilator Mechanical Ventilator 10/02/19 23:45 65 20 137/61 (86) 93 10/02/19 23:32 65 10/02/19 23:30 65 20 121/58 (79) 92 10/02/19 23:15 68 20 141/61 (87) 94 10/02/19 23:00 20 132/63 Mechanical Ventilator 55 10/02/19 23:00 68 20 132/63 (86) 94 10/02/19 22:45 68 19 145/64 (91) 95 10/02/19 22:41 70 20 50 10/02/19 22:30 66 20 130/62 (84) 94 10/02/19 22:15 67 20 135/61 (85) 94 10/02/19 22:00 20 138/60 Mechanical Ventilator 55 10/02/19 22:00 66 20 138/60 (86) 95 10/02/19 21:53 152/65 10/02/19 21:53 66 152/35 10/02/19 21:45 67 20 152/65 (94) 94 10/02/19 21:30 68 20 142/68 (92) 94 10/02/19 21:15 69 20 146/65 (92) 94 10/02/19 21:00 71 21 137/66 (89) 94 20 21:00 20 146/65 Mechanical Ventilator 55 10/02/19 20:58 74 21 55 10/02/19 20:46 77 144/60 10/02/19 20:45 75 22 145/66 (92) 94 10/02/19 20:30 77 23 144/60 (88) 95 10/02/19 20:15 71 20 130/59 (82) 93 10/02/19 20:00 97.5 73 21 149/65 (93) 93 10/02/19 20:00 21 130/59 Mechanical Ventilator 55 10/02/19 20:00 60 [id number] 20:00 Mechanical Ventilator Mechanical Ventilator 10/02/19 19:45 71 20 147/69 (95) 94 10/02/19 19:43 71 8/19/20 19:30 69 20 140/67 (91) 97 10/02/19 19:27 70 20 96 Mechanical Ventilator 55 71 20 45 10/02/19 19:15 71 21 147/66 (93) 92 10/02/19 19:00 73 23 142/63 (89) 94 10/02/19 19:00 22 154/64 Mechanical Ventilator 22 10/02/19 18:45 73 19 158/104 (122) 96 10/02/19 18:30 72 22 154/64 (94) 91 10/02/19 18:15 71 22 158/67 (97) 91 10/02/19 18:00 23 159/69 Mechanical Ventilator 55 10/02/19 18:00 72 23 159/68 (98) 91 10/02/19 17:45 73 22 152/63 (92) 91 10/02/19 17:30 70 21 137/60 (85) 90 10/02/19 17:15 74 23 151/64 (93) 91 10/02/19 17:13 55 10/02/19 17:09 74 21 60 10/02/19 17:00 74 22 142/62 (88) 92 10/02/19 17:00 22 142/62 Mechanical Ventilator 60 10/02/19 16:45 73 23 153/63 (93) 91 10/02/19 16:30 72 21 155/66 (95) 92 10/02/19 16:15 73 23 152/65 (94) 93 10/02/19 16:00 75 10/02/19 16:00 99.4 78 23 154/65 (94) 97 10/02/19 16:00 22 154/65 Mechanical Ventilator 60 10/02/19 16:00 60 10/02/19 16:00 Mechanical Ventilator Mechanical Ventilator 10/02/19 15:45 74 22 149/64 (92) 94 10/02/19 15:30 75 23 149/65 (93) 95 10/02/19 15:28 73 22 60 10/02/19 15:15 74 22 148/62 (90) 94 20 15:01 157/61 10/02/19 15:00 74 22 157/70 (99) 93 10/02/19 15:00 22 154/85 Mechanical Ventilator 60 10/02/19 14:56 74 157/61 10/02/19 14:55 23 157/61 Mechanical Ventilator 60 10/02/19 14:45 74 23 157/61 (93) 93 10/02/19 14:30 75 23 156/63 (94) 93 10/02/19 14:15 75 23 154/67 (96) 92 10/02/19 14:00 25 156/69 Mechanical Ventilator 50 10/02/19 14:00 74 24 156/69 (98) 90 10/02/19 13:45 74 25 159/61 (93) 89 10/02/19 13:30 77 24 160/64 (96) 90 10/02/19 13:15 74 27 160/64 (96) 91 10/02/19 13:00 22 166/58 Mechanical Ventilator 50 10/02/19 13:00 69 23 166/58 (94) 94 10/02/19 12:45 67 18 157/62 (93) 97 10/02/19 12:44 165/60 10/02/19 12:44 67 22 97 Mechanical Ventilator 45 67 21 45 10/02/19 12:30 64 20 165/60 (95) 96 10/02/19 12:15 64 21 163/62 (95) 97 10/02/19 12:00 50 10/02/19 12:00 99.7 65 20 160/62 (94) 97 10/02/19 12:00 20 160/62 Mechanical Ventilator 50 10/02/19 12:00 Mechanical Ventilator Mechanical Ventilator 10/02/19 12:00 66 10/02/19 11:45 66 21 166/65 (98) 97 10/02/19 11:30 65 20 160/63 (95) 99 10/02/19 11:15 66 21 168/63 (98) 99 10/02/19 11:00 21 173/63 Mechanical Ventilator 50 10/02/19 11:00 68 21 173/63 (99) 98 10/02/19 10:45 71 23 180/69 (106) 98 10/02/19 10:38 68 21 60 10/02/19 10:30 74 20 191/74 (113) 96 10/02/19 10:15 69 20 186/66 (106) 97 10/02/19 10:00 68 20 187/66 (106) 96 10/02/19 10:00 20 187/66 Mechanical Ventilator 60 10/02/19 09:48 68 20 184/63 (103) 95 10/02/19 09:45 69 20 184/65 (104) 96 10/02/19 09:38 68 182/64 10/02/19 09:30 69 20 182/64 (103) 96 10/02/19 09:20 73 24 60 10/02/19 09:15 70 20 169/61 (97) 94 10/02/19 09:00 72 20 163/66 (98) 94 10/02/19 09:00 20 163/66 Mechanical Ventilator 60 10/02/19 08:45 75 20 163/68 (99) 96 Intake and Output 10/02/19 10/03/19 19:00 07:00 Intake Total 864 ml 910.0 ml Output Total 355 ml 376 ml Balance 509 ml 534.0 ml Intake Free Water 100 ml IV Total 254 ml 370.0 ml Tube Feeding 480 ml 480 ml Other 30 ml 60 ml Output Urine Total 355 ml 376 ml Laboratory Tests 10/03/19 02:50: White Blood Count 6.9, Red Blood Count 3.09L, Hemoglobin 9.5L, Hematocrit 29.9L , Mean Corpuscular Volume 96, Mean Corpuscular Hemoglobin 30.7, Mean Corpuscular Hemoglobin Concent 31.8L, Red Cell Distribution Width 14.3, Platelet Count 354, Mean Platelet Volume 5.7L, Neutrophils (%) (Auto) 65.7, Lymphocytes (%) (Auto) 22.0, Monocytes (%) (Auto) 6.8, Eosinophils (%) (Auto) 4.6H, Basophils (%) (Auto) 0.8, Sodium Level 126#L, Potassium Level 2.8L, Chloride Level 101, Carbon Dioxide Level 29, Anion Gap -4L, Blood Urea Nitrogen 67H, Creatinine 2.2H, Estimat Glomerular Filtration Rate 23.9, Glucose Level 105 , Uric Acid 5.3, Calcium Level 8.7, Phosphorus Level 4.1, Magnesium Level 2.4, Total Bilirubin 0.3, Aspartate Amino Transf (AST/SGOT) 25, Alanine Aminotransferase (ALT/SGPT) 6L, Alkaline Phosphatase 136H, C-Reactive Protein, Quantitative 10.9H, Pro-B-Type Natriuretic Peptide > [id number], Total Protein 6.5, Albumin 1.6L, Globulin 4.9, Albumin/Globulin Ratio 0.3L 10/03/19 08:02: Arterial Blood pH 7.469H, Arterial Blood Partial Pressure CO2 40.1, Arterial Blood Partial Pressure O2 54.3L, Arterial Blood HCO3 28.5H, Arterial Blood Oxygen Saturation 88.7*L, Arterial Blood Base Excess 4.4H, Rojas Test Positive Height (Feet): 5 Height (Inches): 5.00 Weight (Pounds): 135 General Appearance: no apparent distress EENT: other - Trach to vent Cardiovascular: normal rate Respiratory/Chest: decreased breath sounds Abdomen: soft, other - Prashanth Objective No change Johnny Houston MD Oct 03, 2019 08:45
[2019-10-03] MEDS: Midazolam 2mg/2ml Inj IVP PRN ×3 (08:57→21:54)
[2019-10-03] MEDS: Docusate 100mg/10ml Liq GT SCH ×2 (08:58→18:01)
[2019-10-03] MEDS: Heparin 5000 units/ml inj SUBQ SCH ×2 (08:58→20:41)
[2019-10-03] MEDS: OLANZapine 2.5mg tab GT SCH (08:58)
[2019-10-03] MEDS ORDERED: NaCl 3% 500ml 250 ML IV SCH (09:00)
[2019-10-03] MEDS: fentaNYL 2500mcg/NS 250ml 250 ML IV SCH ×2 (10:55→14:30)
--- NOTE | 2019-10-03 10:55 | Pulmonolgy Critical Care Note ---
Yara Castro PHYSICIAN OFFICE SPECIALIST 10/03/19 1055: Critical Care - Asmt/Plan Assessment/Plan: ASSESSMENT Acute on chronic hypoxemic respiratory failure ( trach dependent), now on vent Tracheostomy status, s/p change to cuffed trach Sepsis Pulmonary edema Pleural effusion -worsening left pl effusion s/p thoracentesis L pleural effusion 09/26 -900 ml Pneumonia with MDR Pseudomonas UTI CHF ? cardiorenal COPD Acute kidney injury and chronic kidney disease-requiring start of HD Hypertension Atrial fibrillation Moderate pulm HTN Moderate AR Dysphagia , feeding by G-tube Electrolyte abnormalities Anemia Toxic metabolic encephalopathy likely due to sepsis and ARF HTN PAF PLAN OF CARE ICU on vent AC trach changed 8/4 pm from uncuffed to cuffed Shiley#[address] chest w/out contrast: - Bilateral pleural effusions, right greater than left, with bilateral lower lobe consolidation or volume loss. -Ground-glass densities in the upper lobes bilaterally. This is not specific. -Tracheostomy. -Increased superior mediastinal density. Stability of adenopathy cannot be excluded. -Atherosclerotic change. -Gastrostomy. -Ascites. -Left renal stent with left hydronephrosis and renal atrophy. VQ scan -> low probability for PE worsening resp status was due to need for HD, now after HD started, resp status improving, down to PEEP 5 and AC 20 trach care , pulmonary toilet ABG this am on FiO2 45 % mild hypoxia, but pulse oximetry above 90% , keep as is and titrate Fio2 further down as tolerated fup with ABG and CXR in am Mucomyst was prior dc given lots of thin secretions, continue Duoneb prn rapid COVID 19 NGT x3 sedation with fentanyl gtt and Versed prn-> off Versed and on weaning from Fentanyl as tolerated s/p thoracentesis L pleural effusion 09/26 am -> 900 ml fluid analysis noted, unlikely empyema given small # of WBC fup with fluid cx ( apparently never sent despite orders) cytology -> NGT, no malignant cells aspiration precautions venous Duplex BLE -> NGT DVT prophylaxis pulm toilet, abx as per ID- s/p gent x 1, now on Vanco and Zerbaxa , completing today 10/02 SCX 8/3 + Proteus, SCX 8/ Pseudomonas MDR UCX 8/2 + Providencia , UCX 8/10 VRE 10-20 K only BCX /2 Staph epidermidis, BCX 8/3 NGT , BCX 8/ and 14 - NGTD monitor volumes was on gentle IVF-> dc s/p prior diuretic-Lasix require initiation of HD close monitoring of volumes, renal parameters and lytes -per nephro recs ECHO with pEF , moderate pulm HTN and moderate AR BP management with current regimen of BB, Cardizem and Hydralazine, remains in SR monitor HH with goal to keep Hgb >7, heme on board on EPO supportive care pain management wound care bowel regimen thank you for a consult Critical Care - Objective Last 24 Hour Vital Signs Date Time Temp Pulse Resp B/P (MAP) Pulse Ox O2 Delivery O2 Flow Rate FiO2 10/03/19 10:04 73 21 159/60 (93) 93 10/03/19 09:30 76 21 150/57 (88) 93 10/03/19 09:00 82 16 168/62 (97) 93 10/03/19 08:58 67 159/62 10/03/19 08:40 67 20 45 10/03/19 08:30 80 20 164/67 (99) 93 10/03/19 08:00 69 20 145/62 (89) 93 10/03/19 08:00 74 10/03/19 07:30 74 21 137/57 (83) 92 10/03/19 07:29 68 21 98 Mechanical Ventilator 45 69 20 45 10/03/19 07:15 72 25 159/62 (94) 85 10/03/19 07:00 24 155/63 Mechanical Ventilator 55 10/03/19 07:00 72 24 155/63 (93) 86 10/03/19 06:45 71 22 149/60 (89) 88 10/03/19 06:30 71 19 150/65 (93) 93 10/03/19 06:15 79 23 156/59 (91) 94 10/03/19 06:15 21 150/65 Mechanical Ventilator 55 10/03/19 06:00 75 21 178/63 (101) 99 10/03/19 06:00 20 156/59 Mechanical Ventilator 55 10/03/19 05:59 137/67 10/03/19 05:58 70 137/67 10/03/19 05:45 72 21 137/67 (90) 93 10/03/19 05:30 72 22 147/61 (89) 93 8 05:15 73 21 133/63 (86) 94 10/03/19 05:09 74 21 55 8 05:00 73 20 142/64 (90) 94 8 05:00 20 133/63 Mechanical Ventilator 55 10/03/19 04:45 26 143/62 Mechanical Ventilator 55 10/03/19 04:45 76 17 157/66 (96) 94 10/03/19 04:30 72 19 143/62 (89) 96 8 04:15 71 15 157/68 (97) 96 10/03/19 04:00 98.9 75 16 171/63 (99) 93 10/03/19 04:00 18 157/68 Mechanical Ventilator 55 10/03/19 04:00 60 8 04:00 Mechanical Ventilator Mechanical Ventilator 10/03/19 03:45 67 19 154/64 (94) 94 10/03/19 03:30 66 19 148/64 (92) 92 10/03/19 03:25 67 10/03/19 03:15 66 20 136/63 (87) 91 10/03/19 03:08 75 20 55 10/03/19 03:00 66 20 136/63 (87) 93 10/03/19 03:00 20 136/63 Mechanical Ventilator 55 10/03/19 02:45 68 18 138/63 (88) 93 10/03/19 02:30 69 17 148/64 (92) 95 10/03/19 02:15 70 18 140/66 (90) 94 10/03/19 02:00 21 140/66 Mechanical Ventilator 55 10/03/19 02:00 70 20 140/68 (92) 94 10/03/19 01:45 69 21 145/72 (96) 94 10/03/19 01:30 70 21 148/64 (92) 94 10/03/19 01:15 69 21 138/69 (92) 93 10/03/19 01:00 20 138/63 Mechanical Ventilator 55 10/03/19 01:00 71 20 138/63 (88) 95 10/03/19 00:45 69 20 145/61 (89) 92 10/03/19 00:30 66 20 135/60 (85) 93 8 00:30 65 20 94 Mechanical Ventilator 55 68 20 45 10/03/19 00:15 66 20 145/64 (91) 92 10/03/19 00:00 97.8 64 20 139/74 (95) 92 10/03/19 00:00 20 145/64 Mechanical Ventilator 55 10/03/19 00:00 Mechanical Ventilator Mechanical Ventilator 10/02/19 23:45 65 20 137/61 (86) 93 10/02/19 23:32 65 10/02/19 23:30 65 20 121/58 (79) 92 10/02/19 23:15 68 20 141/61 (87) 94 10/02/19 23:00 20 132/63 Mechanical Ventilator 55 10/02/19 23:00 68 20 132/63 (86) 94 10/02/19 22:45 68 19 145/64 (91) 95 10/02/19 22:41 70 20 50 10/02/19 22:30 66 20 130/62 (84) 94 10/02/19 22:15 67 20 135/61 (85) 94 10/02/19 22:00 20 138/60 Mechanical Ventilator 55 10/02/19 22:00 66 20 138/60 (86) 95 10/02/19 21:53 152/65 10/02/19 21:53 66 152/35 10/02/19 21:45 67 20 152/65 (94) 94 10/02/19 21:30 68 20 142/68 (92) 94 10/02/19 21:15 69 20 146/65 (92) 94 10/02/19 21:00 71 21 137/66 (89) 94 10/02/19 21:00 20 146/65 Mechanical Ventilator 55 10/02/19 20:58 74 21 55 10/02/19 20:46 77 144/60 10/02/19 20:45 75 22 145/66 (92) 94 10/02/19 20:30 77 23 144/60 (88) 95 10/02/19 20:15 71 20 130/59 (82) 93 10/02/19 20:00 97.5 73 21 149/65 (93) 93 10/02/19 20:00 21 130/59 Mechanical Ventilator 55 10/02/19 20:00 60 10/02/19 20:00 Mechanical Ventilator Mechanical Ventilator 10/02/19 19:45 71 20 147/69 (95) 94 10/02/19 19:43 71 10/02/19 19:30 69 20 140/67 (91) 97 10/02/19 19:27 70 20 96 Mechanical Ventilator 55 71 20 45 20 19:15 71 21 147/66 (93) 92 10/02/19 19:00 73 23 142/63 (89) 94 10/02/19 19:00 22 154/64 Mechanical Ventilator 22 10/02/19 18:45 73 19 158/104 (122) 96 10/02/19 18:30 72 22 154/64 (94) 91 10/02/19 18:15 71 22 158/67 (97) 91 10/02/19 18:00 23 159/69 Mechanical Ventilator 55 10/02/19 18:00 72 23 159/68 (98) 91 10/02/19 17:45 73 22 152/63 (92) 91 10/02/19 17:30 70 21 137/60 (85) 90 10/02/19 17:15 74 23 151/64 (93) 91 10/02/19 17:13 55 10/02/19 17:09 74 21 60 10/02/19 17:00 74 22 142/62 (88) 92 10/02/19 17:00 22 142/62 Mechanical Ventilator 60 10/02/19 16:45 73 23 153/63 (93) 91 10/02/19 16:30 72 21 155/66 (95) 92 10/02/19 16:15 73 23 152/65 (94) 93 10/02/19 16:00 75 10/02/19 16:00 99.4 78 23 154/65 (94) 97 10/02/19 16:00 22 154/65 Mechanical Ventilator 60 10/02/19 16:00 60 10/02/19 16:00 Mechanical Ventilator Mechanical Ventilator 10/02/19 15:45 74 22 149/64 (92) 94 10/02/19 15:30 75 23 149/65 (93) 95 10/02/19 15:28 73 22 60 10/02/19 15:15 74 22 148/62 (90) 94 10/02/19 15:01 157/61 10/02/19 15:00 74 22 157/70 (99) 93 10/02/19 15:00 22 154/85 Mechanical Ventilator 60 10/02/19 14:56 74 157/61 10/02/19 14:55 23 157/61 Mechanical Ventilator 60 10/02/19 14:45 74 23 157/61 (93) 93 10/02/19 14:30 75 23 156/63 (94) 93 10/02/19 14:15 75 23 154/67 (96) 92 10/02/19 14:00 25 156/69 Mechanical Ventilator 50 10/02/19 14:00 74 24 156/69 (98) 90 10/02/19 13:45 74 25 159/61 (93) 89 10/02/19 13:30 77 24 160/64 (96) 90 10/02/19 13:15 74 27 160/64 (96) 91 10/02/19 13:00 22 166/58 Mechanical Ventilator 50 10/02/19 13:00 69 23 166/58 (94) 94 10/02/19 12:45 67 18 157/62 (93) 97 10/02/19 12:44 165/60 10/02/19 12:44 67 22 97 Mechanical Ventilator 45 67 21 45 10/02/19 12:30 64 20 165/60 (95) 96 10/02/19 12:15 64 21 163/62 (95) 97 10/02/19 12:00 50 10/02/19 12:00 99.7 65 20 160/62 (94) 97 10/02/19 12:00 20 160/62 Mechanical Ventilator 50 10/02/19 12:00 Mechanical Ventilator Mechanical Ventilator 10/02/19 12:00 66 10/02/19 11:45 66 21 166/65 (98) 97 10/02/19 11:30 65 20 160/63 (95) 99 10/02/19 11:15 66 21 168/63 (98) 99 10/02/19 11:00 21 173/63 Mechanical Ventilator 50 10/02/19 11:00 68 21 173/63 (99) 98 Objective: General Appearance: no apparent distress, bedridden middle age chronically ill looking female on vent AC 500-20- 45%, PEEP 5, awake and responsive with nodding her head Lines, tubes and drains: left jugular HD catheter HEENT: normocephalic, atraumatic, anicteric, trach - Shiley #7 cuffed XLT, secretions moderate amount, yellow color , thick consistency Respiratory/Chest: no accessory muscle use, few scattered rhonchi bilaterally , Cardiovascular/Chest: normal rate, regular rhythm - SR on tele Abdomen: normal bowel sounds, non tender, soft, G tube Genitourinary/Rectal: Norman Extremities: no edema Skin Exam: warm/dry, multiple tattoos all over the body Neurologic: abnormal gait, sedated Musculoskeletal: atrophy - BLE Critical Care - Subjective ROS Limited/Unobtainable: Yes Interval Events: remains afebrile, no leukocytosis Fio2 down to 45% Fentanyl down to 160 awake, responsive with nodding Na 126 this am Condition: critical IV Access: central - L jugular HD cathter EKG Rhythm: Sinus Rhythm FI02: 45 Vent Support Breath Rate: 20 Vent Support Mode: AC Vent Tidal Volume: 500 Sputum Amount: Small - small amount, yellow color, thick consistency PEEP: 5.0 PIP: 20 Fluids: 3%NaCl at 30 cc/hr Drips: Fentanyl 160 mcg/hr Tube Feeding Amount: 40 I&O: Intake and Output 10/02/19 10/03/19 19:00 07:00 Intake Total 864 ml 910.0 ml Output Total 355 ml 376 ml Balance 509 ml 534.0 ml Intake Free Water 100 ml IV Total 254 ml 370.0 ml Tube Feeding 480 ml 480 ml Other 30 ml 60 ml Output Urine Total 355 ml 376 ml CXR: Bilateral interstitial and airspace edema, perhaps slightly improved since previous day's exam. Juve Martinez MD 10/03/19 1231: Critical Care - Asmt/Plan Assessment/Plan: Patient seen and examined with PHYSICIAN OFFICE SPECIALIST. Agree with above A&P as it reflects our joint deliberations. Stable on vent, weaning O2, weaning sedation, more alert, gas exchange improved , NAOE, CCT 40 Yara Castro NP Oct 03, 2019 10:55 Juve Martinez MD Oct 03, 2019 12:31
--- NOTE | 2019-10-03 10:56 | Diagnostic Imaging Report ---
Indication: Reason For Exam: SOB Technique: Single AP view of the chest. Comparison: Chest radiograph dated 10/01/2019 Findings: The cardiomediastinal silhouette is unchanged in appearance. Stable interstitial edema. Unchanged bilateral pleural effusions. Redemonstration of bilateral perihilar airspace opacities. No pneumothorax. Unchanged cannulated tracheostomy and left approach tunneled dialysis catheter. IMPRESSION: No significant change from prior examination.
--- NOTE | 2019-10-03 11:25 | General Progress Note ---
Assessment/Plan Problem List: (1) S/P aortic dissection repair ICD Codes: Z98.890 - Other specified postprocedural states SNOMED: 016741293, 918698286 (2) Sacral decubitus ulcer, stage IV ICD Codes: L89.154 - Pressure ulcer of sacral region, stage 4 SNOMED: 952454762, 021460429 (3) Anemia ICD Codes: D64.9 - Anemia, unspecified SNOMED: 567961001 (4) GT CLOGGED (5) Feeding by G-tube ICD Codes: Z93.1 - Gastrostomy status SNOMED: 482936878, 160695284 (6) Tracheostomy in place ICD Codes: Z93.0 - Tracheostomy status SNOMED: 673694351 (7) Pacemaker ICD Codes: Z95.0 - Presence of cardiac pacemaker SNOMED: 261473726 (8) Chronic respiratory failure ICD Codes: J96.10 - Chronic respiratory failure, unspecified whether with hypoxia or hypercapnia SNOMED: 74691784 Assessment/Plan: GTF monitor for residuals repeat labs ICU care add lactulose Subjective ROS Limited/Unobtainable: No Allergies: Coded Allergies: No Known Allergies (Unverified , 10/10/17) Objective Last 24 Hour Vital Signs Date Time Temp Pulse Resp B/P (MAP) Pulse Ox O2 Delivery O2 Flow Rate FiO2 10/03/19 11:00 71 21 155/65 (95) 92 10/03/19 10:59 75 24 45 10/03/19 10:55 21 159/60 Mechanical Ventilator 45 10/03/19 10:30 71 21 158/61 (93) 93 10/03/19 10:04 73 21 159/60 (93) 93 10/03/19 10:00 74 21 158/67 (97) 93 10/03/19 09:30 76 21 150/57 (88) 93 10/03/19 09:00 82 16 168/62 (97) 93 10/03/19 08:58 67 159/62 10/03/19 08:40 67 20 45 10/03/19 08:30 80 20 164/67 (99) 93 10/03/19 08:00 60 10/03/19 08:00 69 20 145/62 (89) 93 10/03/19 08:00 74 8/20/20 08:00 Mechanical Ventilator Mechanical Ventilator 8 07:30 74 21 137/57 (83) 92 8 07:29 68 21 98 Mechanical Ventilator 45 69 20 45 820 07:15 72 25 159/62 (94) 85 82020 07:00 24 155/63 Mechanical Ventilator 55 820 07:00 72 24 155/63 (93) 86 8 06:45 71 22 149/60 (89) 88 820 06:30 71 19 150/65 (93) 93 820 06:15 79 23 156/59 (91) 94 8 06:15 21 150/65 Mechanical Ventilator 55 8 06:00 75 21 178/63 (101) 99 8 06:00 20 156/59 Mechanical Ventilator 55 8 05:59 137/67 8 05:58 70 137/67 8 05:45 72 21 137/67 (90) 93 8 05:30 72 22 147/61 (89) 93 8 05:15 73 21 133/63 (86) 94 8 05:09 74 21 55 8 05:00 73 20 142/64 (90) 94 8 05:00 20 133/63 Mechanical Ventilator 55 10/03/19 04:45 26 143/62 Mechanical Ventilator 55 10/03/19 04:45 76 17 157/66 (96) 94 10/03/19 04:30 72 19 143/62 (89) 96 8 04:15 71 15 157/68 (97) 96 8 04:00 98.9 75 16 171/63 (99) 93 10/03/19 04:00 18 157/68 Mechanical Ventilator 55 10/03/19 04:00 60 8 04:00 Mechanical Ventilator Mechanical Ventilator 8 03:45 67 19 154/64 (94) 94 82020 03:30 66 19 148/64 (92) 92 82020 03:25 67 8/2020 03:15 66 20 136/63 (87) 91 8 03:08 75 20 55 8 03:00 66 20 136/63 (87) 93 10/03/19 03:00 20 136/63 Mechanical Ventilator 55 10/03/19 02:45 68 18 138/63 (88) 93 10/03/19 02:30 69 17 148/64 (92) 95 10/03/19 02:15 70 18 140/66 (90) 94 10/03/19 02:00 21 140/66 Mechanical Ventilator 55 10/03/19 02:00 70 20 140/68 (92) 94 10/03/19 01:45 69 21 145/72 (96) 94 10/03/19 01:30 70 21 148/64 (92) 94 10/03/19 01:15 69 21 138/69 (92) 93 10/03/19 01:00 20 138/63 Mechanical Ventilator 55 10/03/19 01:00 71 20 138/63 (88) 95 10/03/19 00:45 69 20 145/61 (89) 92 10/03/19 00:30 66 20 135/60 (85) 93 10/03/19 00:30 65 20 94 Mechanical Ventilator 55 68 20 45 10/03/19 00:15 66 20 145/64 (91) 92 10/03/19 00:00 97.8 64 20 139/74 (95) 92 10/03/19 00:00 20 145/64 Mechanical Ventilator 55 10/03/19 00:00 Mechanical Ventilator Mechanical Ventilator 10/02/19 23:45 65 20 137/61 (86) 93 10/02/19 23:32 65 10/02/19 23:30 65 20 121/58 (79) 92 10/02/19 23:15 68 20 141/61 (87) 94 10/02/19 23:00 20 132/63 Mechanical Ventilator 55 10/02/19 23:00 68 20 132/63 (86) 94 10/02/19 22:45 68 19 145/64 (91) 95 10/02/19 22:41 70 20 50 10/02/19 22:30 66 20 130/62 (84) 94 10/02/19 22:15 67 20 135/61 (85) 94 10/02/19 22:00 20 138/60 Mechanical Ventilator 55 10/02/19 22:00 66 20 138/60 (86) 95 10/02/19 21:53 152/65 8/19/20 21:53 66 152/35 10/02/19 21:45 67 20 152/65 (94) 94 10/02/19 21:30 68 20 142/68 (92) 94 20 21:15 69 20 146/65 (92) 94 10/02/19 21:00 71 21 137/66 (89) 94 10/02/19 21:00 20 146/65 Mechanical Ventilator 55 10/02/19 20:58 74 21 55 10/02/19 20:46 77 144/60 10/02/19 20:45 75 22 145/66 (92) 94 10/02/19 20:30 77 23 144/60 (88) 95 10/02/19 20:15 71 20 130/59 (82) 93 10/02/19 20:00 97.5 73 21 149/65 (93) 93 10/02/19 20:00 21 130/59 Mechanical Ventilator 55 10/02/19 20:00 60 10/02/19 20:00 Mechanical Ventilator Mechanical Ventilator 10/02/19 19:45 71 20 147/69 (95) 94 10/02/19 19:43 71 10/02/19 19:30 69 20 140/67 (91) 97 10/02/19 19:27 70 20 96 Mechanical Ventilator 55 71 20 45 10/02/19 19:15 71 21 147/66 (93) 92 10/02/19 19:00 73 23 142/63 (89) 94 20 19:00 22 154/64 Mechanical Ventilator 22 10/02/19 18:45 73 19 158/104 (122) 96 10/02/19 18:30 72 22 154/64 (94) 91 20 18:15 71 22 158/67 (97) 91 20 18:00 23 159/69 Mechanical Ventilator 55 10/02/19 18:00 72 23 159/68 (98) 91 10/02/19 17:45 73 22 152/63 (92) 91 20 17:30 70 21 137/60 (85) 90 20 17:15 74 23 151/64 (93) 91 10/02/19 17:13 55 10/02/19 17:09 74 21 60 10/02/19 17:00 74 22 142/62 (88) 92 10/02/19 17:00 22 142/62 Mechanical Ventilator 60 10/02/19 16:45 73 23 153/63 (93) 91 10/02/19 16:30 72 21 155/66 (95) 92 10/02/19 16:15 73 23 152/65 (94) 93 10/02/19 16:00 75 10/02/19 16:00 99.4 78 23 154/65 (94) 97 10/02/19 16:00 22 154/65 Mechanical Ventilator 60 10/02/19 16:00 60 10/02/19 16:00 Mechanical Ventilator Mechanical Ventilator 10/02/19 15:45 74 22 149/64 (92) 94 10/02/19 15:30 75 23 149/65 (93) 95 10/02/19 15:28 73 22 60 10/02/19 15:15 74 22 148/62 (90) 94 10/02/19 15:01 157/61 10/02/19 15:00 74 22 157/70 (99) 93 10/02/19 15:00 22 154/85 Mechanical Ventilator 60 10/02/19 14:56 74 157/61 10/02/19 14:55 23 157/61 Mechanical Ventilator 60 10/02/19 14:45 74 23 157/61 (93) 93 10/02/19 14:30 75 23 156/63 (94) 93 10/02/19 14:15 75 23 154/67 (96) 92 10/02/19 14:00 25 156/69 Mechanical Ventilator 50 10/02/19 14:00 74 24 156/69 (98) 90 10/02/19 13:45 74 25 159/61 (93) 89 10/02/19 13:30 77 24 160/64 (96) 90 10/02/19 13:15 74 27 160/64 (96) 91 10/02/19 13:00 22 166/58 Mechanical Ventilator 50 10/02/19 13:00 69 23 166/58 (94) 94 10/02/19 12:45 67 18 157/62 (93) 97 10/02/19 12:44 165/60 10/02/19 12:44 67 22 97 Mechanical Ventilator 45 67 21 45 10/02/19 12:30 64 20 165/60 (95) 96 10/02/19 12:15 64 21 163/62 (95) 97 10/02/19 12:00 50 10/02/19 12:00 99.7 65 20 160/62 (94) 97 10/02/19 12:00 20 160/62 Mechanical Ventilator 50 10/02/19 12:00 Mechanical Ventilator Mechanical Ventilator 10/02/19 12:00 66 10/02/19 11:45 66 21 166/65 (98) 97 10/02/19 11:30 65 20 160/63 (95) 99 Intake and Output 10/02/19 10/03/19 19:00 07:00 Intake Total 864 ml 910.0 ml Output Total 355 ml 376 ml Balance 509 ml 534.0 ml Intake Free Water 100 ml IV Total 254 ml 370.0 ml Tube Feeding 480 ml 480 ml Other 30 ml 60 ml Output Urine Total 355 ml 376 ml Laboratory Tests 10/03/19 02:50: White Blood Count 6.9, Red Blood Count 3.09L, Hemoglobin 9.5L, Hematocrit 29.9L , Mean Corpuscular Volume 96, Mean Corpuscular Hemoglobin 30.7, Mean Corpuscular Hemoglobin Concent 31.8L, Red Cell Distribution Width 14.3, Platelet Count 354, Mean Platelet Volume 5.7L, Neutrophils (%) (Auto) 65.7, Lymphocytes (%) (Auto) 22.0, Monocytes (%) (Auto) 6.8, Eosinophils (%) (Auto) 4.6H, Basophils (%) (Auto) 0.8, Sodium Level 126#L, Potassium Level 2.8L, Chloride Level 101, Carbon Dioxide Level 29, Anion Gap -4L, Blood Urea Nitrogen 67H, Creatinine 2.2H, Estimat Glomerular Filtration Rate 23.9, Glucose Level 105 , Uric Acid 5.3, Calcium Level 8.7, Phosphorus Level 4.1, Magnesium Level 2.4, Total Bilirubin 0.3, Aspartate Amino Transf (AST/SGOT) 25, Alanine Aminotransferase (ALT/SGPT) 6L, Alkaline Phosphatase 136H, C-Reactive Protein, Quantitative 10.9H, Pro-B-Type Natriuretic Peptide > 69767V, Total Protein 6.5, Albumin 1.6L, Globulin 4.9, Albumin/Globulin Ratio 0.3L 10/03/19 08:02: Arterial Blood pH 7.469H, Arterial Blood Partial Pressure CO2 40.1, Arterial Blood Partial Pressure O2 54.3L, Arterial Blood HCO3 28.5H, Arterial Blood Oxygen Saturation 88.7*L, Arterial Blood Base Excess 4.4H, Rojas Test Positive Height (Feet): 5 Height (Inches): 5.00 Weight (Pounds): 135 General Appearance: no apparent distress EENT: normal ENT inspection Neck: supple Cardiovascular: normal rate Respiratory/Chest: decreased breath sounds Abdomen: normal bowel sounds, non tender, soft Extremities: non-tender Inder Mccauley MD Oct 03, 2019 11:25
[2019-10-03] MEDS: Lactulose 10gm/15ml UDC ORAL SCH ×2 (13:08→18:01)
[2019-10-03] MEDS ORDERED: fentaNYL 2500mcg/NS 250ml 250 ML IV SCH (16:00)
--- NOTE | 2019-10-03 16:43 | Surgery Progress Note ---
Surgery Progress Note Subjective Additional Comments no acute events comfortable stable no n/v/f/c discussed care with {PCP at bedside Objective Last 24 Hour Vital Signs Date Time Temp Pulse Resp B/P (MAP) Pulse Ox O2 Delivery O2 Flow Rate FiO2 10/03/19 16:37 73 34 50 10/03/19 15:14 71 34 45 10/03/19 15:00 71 22 168/64 (98) 96 10/03/19 14:30 34 168/64 Mechanical Ventilator 10.0 50 10/03/19 14:29 20 159/61 Mechanical Ventilator 50 10/03/19 14:00 20 151/57 Mechanical Ventilator 50 10/03/19 14:00 72 20 151/57 (88) 95 10/03/19 13:09 69 162/63 10/03/19 13:00 20 147/56 Mechanical Ventilator 50 10/03/19 13:00 65 20 145/55 (85) 92 10/03/19 12:54 69 20 97 Mechanical Ventilator 45 76 20 45 10/03/19 12:29 98.5 10/03/19 12:00 98.5 73 21 162/63 (96) 92 10/03/19 12:00 21 162/63 Mechanical Ventilator 50 10/03/19 12:00 72 10/03/19 12:00 Mechanical Ventilator Mechanical Ventilator 10/03/19 12:00 45 10/03/19 11:58 155/65 10/03/19 11:00 71 21 155/65 (95) 92 10/03/19 10:59 75 24 45 10/03/19 10:55 21 159/60 Mechanical Ventilator 45 10/03/19 10:30 71 21 158/61 (93) 93 10/03/19 10:04 73 21 159/60 (93) 93 10/03/19 10:00 74 21 158/67 (97) 93 10/03/19 09:30 76 21 150/57 (88) 93 10/03/19 09:00 82 16 168/62 (97) 93 10/03/19 08:58 67 159/62 10/03/19 08:40 67 20 45 10/03/19 08:30 80 20 164/67 (99) 93 10/03/19 08:00 60 10/03/19 08:00 69 20 145/62 (89) 93 8/20/20 08:00 20 137/57 Mechanical Ventilator 50 8/20/20 08:00 74 8/20/20 08:00 Mechanical Ventilator Mechanical Ventilator 8/2020 07:30 74 21 137/57 (83) 92 82020 07:29 68 21 98 Mechanical Ventilator 45 69 20 45 820/20 07:15 72 25 159/62 (94) 85 820/20 07:00 24 155/63 Mechanical Ventilator 55 820/20 07:00 72 24 155/63 (93) 86 820 06:45 71 22 149/60 (89) 88 82020 06:30 71 19 150/65 (93) 93 82020 06:15 79 23 156/59 (91) 94 8 06:15 21 150/65 Mechanical Ventilator 55 8 06:00 75 21 178/63 (101) 99 8 06:00 20 156/59 Mechanical Ventilator 55 8 05:59 137/67 8 05:58 70 137/67 8 05:45 72 21 137/67 (90) 93 820 05:30 72 22 147/61 (89) 93 8 05:15 73 21 133/63 (86) 94 8 05:09 74 21 55 8 05:00 73 20 142/64 (90) 94 820 05:00 20 133/63 Mechanical Ventilator 55 8 04:45 26 143/62 Mechanical Ventilator 55 8 04:45 76 17 157/66 (96) 94 820 04:30 72 19 143/62 (89) 96 82020 04:15 71 15 157/68 (97) 96 82020 04:00 98.9 75 16 171/63 (99) 93 820 04:00 18 157/68 Mechanical Ventilator 55 8 04:00 60 82020 04:00 Mechanical Ventilator Mechanical Ventilator 820 03:45 67 19 154/64 (94) 94 820 03:30 66 19 148/64 (92) 92 8 03:25 67 8 03:15 66 20 136/63 (87) 91 10/03/19 03:08 75 20 55 10/03/19 03:00 66 20 136/63 (87) 93 10/03/19 03:00 20 136/63 Mechanical Ventilator 55 10/03/19 02:45 68 18 138/63 (88) 93 10/03/19 02:30 69 17 148/64 (92) 95 10/03/19 02:15 70 18 140/66 (90) 94 10/03/19 02:00 21 140/66 Mechanical Ventilator 55 10/03/19 02:00 70 20 140/68 (92) 94 10/03/19 01:45 69 21 145/72 (96) 94 10/03/19 01:30 70 21 148/64 (92) 94 10/03/19 01:15 69 21 138/69 (92) 93 10/03/19 01:00 20 138/63 Mechanical Ventilator 55 10/03/19 01:00 71 20 138/63 (88) 95 10/03/19 00:45 69 20 145/61 (89) 92 10/03/19 00:30 66 20 135/60 (85) 93 10/03/19 00:30 65 20 94 Mechanical Ventilator 55 68 20 45 10/03/19 00:15 66 20 145/64 (91) 92 10/03/19 00:00 97.8 64 20 139/74 (95) 92 10/03/19 00:00 20 145/64 Mechanical Ventilator 55 10/03/19 00:00 Mechanical Ventilator Mechanical Ventilator 10/02/19 23:45 65 20 137/61 (86) 93 10/02/19 23:32 65 10/02/19 23:30 65 20 121/58 (79) 92 10/02/19 23:15 68 20 141/61 (87) 94 10/02/19 23:00 20 132/63 Mechanical Ventilator 55 10/02/19 23:00 68 20 132/63 (86) 94 10/02/19 22:45 68 19 145/64 (91) 95 10/02/19 22:41 70 20 50 10/02/19 22:30 66 20 130/62 (84) 94 10/02/19 22:15 67 20 135/61 (85) 94 10/02/19 22:00 20 138/60 Mechanical Ventilator 55 10/02/19 22:00 66 20 138/60 (86) 95 20 21:53 152/65 20 21:53 66 152/35 10/02/19 21:45 67 20 152/65 (94) 94 20 21:30 68 20 142/68 (92) 94 20 21:15 69 20 146/65 (92) 94 10/02/19 21:00 71 21 137/66 (89) 94 10/02/19 21:00 20 146/65 Mechanical Ventilator 55 10/02/19 20:58 74 21 55 20 20:46 77 144/60 10/02/19 20:45 75 22 145/66 (92) 94 10/02/19 20:30 77 23 144/60 (88) 95 10/02/19 20:15 71 20 130/59 (82) 93 10/02/19 20:00 97.5 73 21 149/65 (93) 93 10/02/19 20:00 21 130/59 Mechanical Ventilator 55 10/02/19 20:00 60 10/02/19 20:00 Mechanical Ventilator Mechanical Ventilator 10/02/19 19:45 71 20 147/69 (95) 94 10/02/19 19:43 71 10/02/19 19:30 69 20 140/67 (91) 97 10/02/19 19:27 70 20 96 Mechanical Ventilator 55 71 20 45 10/02/19 19:15 71 21 147/66 (93) 92 10/02/19 19:00 73 23 142/63 (89) 94 10/02/19 19:00 22 154/64 Mechanical Ventilator 22 10/02/19 18:45 73 19 158/104 (122) 96 10/02/19 18:30 72 22 154/64 (94) 91 20 18:15 71 22 158/67 (97) 91 20 18:00 23 159/69 Mechanical Ventilator 55 10/02/19 18:00 72 23 159/68 (98) 91 10/02/19 17:45 73 22 152/63 (92) 91 20 17:30 70 21 137/60 (85) 90 20 17:15 74 23 151/64 (93) 91 10/02/19 17:13 55 10/02/19 17:09 74 21 60 10/02/19 17:00 74 22 142/62 (88) 92 10/02/19 17:00 22 142/62 Mechanical Ventilator 60 10/02/19 16:45 73 23 153/63 (93) 91 I&O Intake and Output 10/02/19 10/03/19 19:00 07:00 Intake Total 864 ml 910.0 ml Output Total 355 ml 376 ml Balance 509 ml 534.0 ml Intake Free Water 100 ml IV Total 254 ml 370.0 ml Tube Feeding 480 ml 480 ml Other 30 ml 60 ml Output Urine Total 355 ml 376 ml Dressing: other Wound: other Cardiovascular: RSR Respiratory: decreased breath sounds Abdomen: soft, non-tender, present bowel sounds Extremities: no edema, no cyanosis Laboratory Tests Test 10/03/19 02:50 10/03/19 08:02 White Blood Count 6.9 K/UL (4.8-10.8) Red Blood Count 3.09 M/UL (4.20-5.40) L Hemoglobin 9.5 G/DL (12.0-16.0) L Hematocrit 29.9 % (37.0-47.0) L Mean Corpuscular Volume 96 FL (80-99) Mean Corpuscular Hemoglobin 30.7 PG (27.0-31.0) Mean Corpuscular Hemoglobin Concent 31.8 G/DL (32.0-36.0) L Red Cell Distribution Width 14.3 % (11.6-14.8) Platelet Count 354 K/UL (150-450) Mean Platelet Volume 5.7 FL (6.5-10.1) L Neutrophils (%) (Auto) 65.7 % (45.0-75.0) Lymphocytes (%) (Auto) 22.0 % (20.0-45.0) Monocytes (%) (Auto) 6.8 % (1.0-10.0) Eosinophils (%) (Auto) 4.6 % (0.0-3.0) H Basophils (%) (Auto) 0.8 % (0.0-2.0) Sodium Level 126 MMOL/L (136-145) #L Potassium Level 2.8 MMOL/L (3.5-5.1) L Chloride Level 101 MMOL/L (98-107) Carbon Dioxide Level 29 MMOL/L (21-32) Anion Gap -4 mmol/L (5-15) L Blood Urea Nitrogen 67 mg/dL (7-18) H Creatinine 2.2 MG/DL (0.55-1.30) H Estimat Glomerular Filtration Rate 23.9 mL/min (>60) Glucose Level 105 MG/DL (74-106) Uric Acid 5.3 MG/DL (2.6-7.2) Calcium Level 8.7 MG/DL (8.5-10.1) Phosphorus Level 4.1 MG/DL (2.5-4.9) Magnesium Level 2.4 MG/DL (1.8-2.4) Total Bilirubin 0.3 MG/DL (0.2-1.0) Aspartate Amino Transf (AST/SGOT) 25 U/L (15-37) Alanine Aminotransferase (ALT/SGPT) 6 U/L (12-78) L Alkaline Phosphatase 136 U/L (46-116) H C-Reactive Protein, Quantitative 10.9 mg/dL (0.00-0.90) H Pro-B-Type Natriuretic Peptide > 04732 pg/mL (0-125) H Total Protein 6.5 G/DL (6.4-8.2) Albumin 1.6 G/DL (3.4-5.0) L Globulin 4.9 g/dL Albumin/Globulin Ratio 0.3 (1.0-2.7) L Arterial Blood pH 7.469 (7.350-7.450) Arterial Blood Partial Pressure CO2 40.1 mmHg (35.0-45.0) Arterial Blood Partial Pressure O2 54.3 mmHg (75.0-100.0) L Arterial Blood HCO3 28.5 mmol/L (22.0-26.0) H Arterial Blood Oxygen Saturation 88.7 % (95-100) *L Arterial Blood Base Excess 4.4 (-2-2) H Rojas Test Positive Plan Problems: (1) Anemia (2) Proteinuria (3) UTI (urinary tract infection) (4) ARF (acute renal failure) (5) ACS (acute coronary syndrome) (6) Respiratory failure, acute and chronic (7) HCAP (healthcare-associated pneumonia) (8) Abrasion of lip, initial encounter (9) COPD with exacerbation (10) Hypokalemia (11) Sepsis Assessment & Plan: Leukocytosis, anemia, abnormal labs. Renal insufficiency potentially dehydrated Abnormal LFTs alk phos elevated Urine noted significant bacteria likely UTI etiology Wound stable still requiring local care IV antibiotics per infectious disease Discussed with receiving and processing supervisor Dr. Berkowitz air mattress turn q2h nutritional tf will follow with recs thank you CT noted pending VQ scan - noted poor study low prob PE work respiratory increasing needs sedation weaning vent settings 80% peep 10 now comfortable Hd line in receiving HD plan for left thora 09/26 (12) Chronic respiratory failure (13) Ascites (14) Bacteremia (15) Hypernatremia (16) Pleural effusion (17) Pacemaker (18) Aortic dissection, thoracic (19) Tracheostomy in place Assessment & Plan: trach stable no bleeding currently likely tongue etiology of mild oozing currently hemostatic without trauma (20) Feeding by G-tube Assessment & Plan: okay to resume tube feeds via g tube patent and functional dressings okay DAILY ESTIMATED NEEDS: Needs based on Pulmonary, wound 49kg 30-35 kcals/kg 0202-3604 total kcals 1.25-2 g protein/kg 61-98 g total protein Fluid per MD NUTRITION DIAGNOSIS: * Swallowing difficulty R/T dysphagia, respiratory status as evidenced by vent dep via T-collar, GT Dep. (CURRENT TF: Nepro @45ml/hr x 24 hrs) ENTERAL NUTRITION RECOMMENDATIONS: Nepro @ 40ml/hr x 24 hrs to provide 960ml, 1728kcal, 78g prot, 698ml free water * Rec LOWER current rate to 40ml/hr for 24 hrs run. 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 Base of wound is granular with bone exposure at base of sacrococcygeal.(L)10.5cm x (W06.5cm x (D) 2.8cm , undermining 11-3 by 3.6cm @12 o'clock. small amt serosanguineous exudate noted . [place] epithelial along edges bordered by darker skin tone without erythema. Resolving Pressure injury L ischium. Base of wound is 95% pink epithelial ,5% noni at center base of wound. No exudate noted. Both heels are boggy with non-Blanching erythema. Tx.plan: Cleanse Sacral wound with Saline. Loosely pack with Hydrogel impregnated Kerlix. Apply Moisture Barrier Periwound. Cover with Optifoam drsg Daily and prn. Apply Moisture Barrier paste to L Ischium. Cover with Optifoam drsg. Changee very 3 days and prn. Apply Cavilon Skin Barrier to both heels. Cover each heel with Optifoam drsgs. Change every 7 days and prn. Reposition at least every 2hours or as tolerated. Off-load heels with pillow. APM/JENNIFER Mattress overlay. Lane Saavedra Oct 03, 2019 16:43
[2019-10-03] MEDS: Dyna-Hex 2% Top Sol 2oz TOPIC SCH (20:07)
[2019-10-03] MEDS: Miralax 17gm pkt ORAL SCH (20:40)
[2019-10-03] MEDS: Sertraline 100mg tab GT SCH (20:40)
[2019-10-04] VITALS (51 sets, daily range): BP systolic 104–219; BP diastolic 44–94
[2019-10-04] MEDS ORDERED: fentaNYL 2500mcg/NS 250ml 250 ML IV ONE (00:28)
[2019-10-04] MEDS: Docusate 100mg/10ml Liq GT SCH ×4 (00:35→23:48)
[2019-10-04] MEDS: traMADol 50mg tab GT SCH ×3 (00:35→20:54)
[2019-10-04] MEDS: Minoxidil 2.5mg tab GT SCH ×5 (00:35→23:49)
[2019-10-04] MEDS: fentaNYL 2500mcg/NS 250ml 250 ML IV SCH ×3 (00:38→20:13)
[2019-10-04] MEDS: Albuterol/Ipratropium 3ml neb HHN SCH ×4 (01:17→19:48)
[2019-10-04] MEDS: Midazolam 2mg/2ml Inj IVP PRN ×3 (02:59→14:47)
[2019-10-04] MEDS: CEFTOLOZANE IV SCH (03:55)
[2019-10-04] MEDS: NS IV SCH (03:55)
[2019-10-04] MEDS: TAZOBACTAM IV SCH (03:55)
[2019-10-04] MEDS: Metoclopramide 10mg/2ml Inj IVP SCH ×3 (05:41→20:59)
[2019-10-04] MEDS: dilTIAZem HCl 30mg tab GT SCH ×2 (05:42→12:57)
[2019-10-04 07:11] LABS: ALBUMIN 1.7 G/DL (3.4-5.0); ALBUMIN/GLOBULIN RATIO 0.4 (1.0-2.7); ALKALINE PHOSPHATASE 147 U/L (46-116); ANION GAP 10 mmol/L (5-15); ASPARTATE AMINO TRANSFERASE 23 U/L (15-37); BILIRUBIN,TOTAL 0.2 MG/DL (0.2-1.0); BLOOD UREA NITROGEN 67 mg/dL (7-18); CALCIUM 8.5 MG/DL (8.5-10.1); CARBON DIOXIDE 28 MMOL/L (21-32); CHLORIDE 103 MMOL/L (98-107); CREATININE 2.2 MG/DL (0.55-1.30); PHOSPHORUS 4.8 MG/DL (2.5-4.9); POTASSIUM 3.1 MMOL/L (3.5-5.1); SODIUM 140 MMOL/L (136-145)
[2019-10-04 07:25] LABS: BASOPHILS % (AUTO) 1.5 % (0.0-2.0); EOSINOPHILS % (AUTO) 5.1 % (0.0-3.0); HEMATOCRIT 28.3 % (37.0-47.0); LYMPHOCYTES % (AUTO) 22.6 % (20.0-45.0); MEAN CORPUSCULAR VOLUME 96 FL (80-99); MONOCYTES % (AUTO) 8.3 % (1.0-10.0); NEUTROPHILS % (AUTO) 62.5 % (45.0-75.0); PLATELET COUNT 354 K/UL (150-450); RED BLOOD COUNT 2.95 M/UL (4.20-5.40); RED CELL DISTRIBUTION WIDTH 14.2 % (11.6-14.8); WHITE BLOOD COUNT 6.1 K/UL (4.8-10.8)
[2019-10-04 07:30] LABS: ALANINE AMINOTRANSFERASE 7 U/L (12-78)
--- NOTE | 2019-10-04 07:55 | Infectious Diseases Prog Note ---
Assessment/Plan 49yo F with: Acute hypoxic resp failure: Now on vent, worsening, FiO2 100% > 80% 09/27 Pneumonia, COVID19 neg x3 - worsening MDR PsA pneumonia 09/29 CXR: Bilateral edema versus infiltrates appears slightly worse than on the prior study. There is probably some pleural fluid on the left. 09/26 S/P thoracentesis, 900cc removed, only 67 WBC in fluid analysis, unlikely empyema 09/26 CXR: Worsening R perihilar opacity 09/26 BCx NTD 09/24 CXR: Previously demonstrated right lateral basilar lucency is no longer evident, was presumably a skin fold artifact. Bilateral infiltrates and left pleural effusion are probably unchanged allowing for slight differences in technique. 09/22 Resp cx + MDR PsA (S-gent; I-colistin; R-levofloxacin, Zosyn, angelo) 09/22 BCx NTD 09/22 CXR: worsening BL pna 09/22 UA w/ persistent pyuria, now on HD, UCx +VRE, most likely colonizer as improving wo tx for this 09/19 V/Q scan, low probability of PE 09/18 Rapid COVID PCR neg 09/18 CT chest: Markedly suboptimal examination due to lack of IV contrast material. Bilateral pleural effusions, right greater than left, with bilateral lower lobe consolidation or volume loss. Ground glass densities in the upper lobes bilaterally. This is not specific. Tracheostomy. Increased superior mediastinal density. Stability of adenopathy cannot be excluded. Atherosclerotic change. Gastrostomy. Ascites. Left renal stent with left hydronephrosis and renal atrophy. 09/17 Chest US: Trace right and small left pleural effusions. No safe window identified for bedside thoracentesis. Note that the majority of the left pleural effusion is subpulmonic. 09/16 CXR: Worsening of right lung infiltrates and right effusion. V. duplex: NO DVT D-dimer elevated 09/15 Rapid COVID PCR neg 09/15 Sp cx ESBL P. mirablis 09/14 CXR: Bilateral airspace opacities, preferentially involving the right lung, consistent with multifocal infiltrate. Trace bilateral pleural effusions. No pneumothorax. Rapid COVID PCR neg Urine legionella neg 09/16 GPC bacteremia, real vs contaminant; does have hx of infected PPM- could be a possibility- ro endocarditis 09/14 Bcx / S. epidermis; 09/15 Bcx NTD 2d echo: no vegetations seen UTI 09/14 u/a wbc tnct, nit neg, leuk +3; ucx >100k MDR P. stuarti (S Ceftriaxone, Meropenem) 09/22 UA w/ ongoing pyuria, unchanged Unstageable sacral ulceration Afebrile Leukocytosis, mild; fluctuates bt 12-13 JAVIER on CKD --> now on HD Renal US: Limited exam due to abdominal ascites and shadowing from bowel gas. CT recommended for more sensitive evaluation. Moderate right hydronephrosis. Increased renal parenchymal echogenicity suggesting intrinsic/ medical renal disease. Question indwelling left ureteral stent versus artifact. Bladder not visualized. 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 epi-11/2018, sp > 6weeks IV vancomycin 11/27 SP ABBIE: no evidence for vegetation on any of the valves 11/26/18 SP PPM removal: OR findings:The fibrous capsule enclosing the generator was then opened and there was a [id number] amount of yellowish fluid drainage. The generator was then removed.Atrial and ventricular leads were detached. The necrotic tissue of the pocket was then removed and the pocket was flushed with an antibiotic solution. Capsule, wound tissue and lead tip cx: Neg 2d echo: no vegetation seen US chest: 4.6 x 3.4 x 0.9 cm hypoechoic/anechoic area overlying left chest pacemaker power pack. This could represent either a discrete fluid collection or a focal area of very edematous tissue. Infected fluid pocket also possible. 11/18 Bcx 3/4 S. epi; 11/20 Bcx neg; 11/24 Bcx Neg; 11/27 Bcx Neg Hx of PNA 11/2019? sp cx PsA (arnett S), ABC (I Ceftriaxone; otherwise negative) Sp cx MRSA, ABC (I Ceftriaxone; otherwise S) PMH: Afib HTN Dysphagia sp GT Aortic dissection s/p repair 2017, S/p PPM Parkinson's Disease Schizophrenia Anxiety COPD Chronic resp failure s/p trach Hx of tracheal bleeding [facility] Plan: Stop Zerbaxa and gentamicin, s/p 7 day course for MDR pneumonia Trend resp status, leukocytosis D/w micro about sending MDR PsA out for further sensi to Zerbaxa and Avycaz, [facility] lab order signed, sent out of Tuesday 09/26, d/w Micro today, won't have results until 10/06 ([phone]), f/u these results just for future reference Aggressive volume removal as tolerated by HD, BNP >35,000 10/03 SP Zerbaxa #6, gent #7 for MDR PsA pna 09/29 SP vanco #15 for S.epi in BCx 09/27 SP angelo #13 09/16 SP Cefepime #3, Levaquin #3 Monitor CBC/CMP, temperatures ICU/ trach/ peg care Aspiration precautions D/w RN Thank you for this consultation. Will continue to follow along with you. Subjective Allergies: Coded Allergies: No Known Allergies (Unverified , 10/10/17) AF Remains on vent, FiO2 50% PEEP 5 satting 98% WBC 6 Eyes open to voice, minimally interactive Agitated on vent per RN No ETT secretions, just OP Objective Last 24 Hour Vital Signs Date Time Temp Pulse Resp B/P (MAP) Pulse Ox O2 Delivery O2 Flow Rate FiO2 10/04/19 06:30 72 19 149/62 (91) 97 10/04/19 06:00 21 148/62 Endotracheal Tube 50 10/04/19 06:00 77 19 148/62 (90) 97 10/04/19 05:42 143/61 10/04/19 05:42 75 143/61 10/04/19 05:30 76 20 143/61 (88) 97 10/04/19 05:15 78 21 50 10/04/19 05:00 77 20 155/63 (93) 97 10/04/19 05:00 21 155/63 Simple Mask 50.0 50 10/04/19 05:00 20 163/64 Mechanical Ventilator 50 10/04/19 04:30 86 20 164/68 (100) 99 10/04/19 04:00 81 20 163/64 (97) 99 10/04/19 04:00 79 10/04/19 04:00 Mechanical Ventilator Mechanical Ventilator 10/04/19 04:00 20 163/44 Mechanical Ventilator 10/04/19 04:00 50 10/04/19 03:30 83 18 163/64 (97) 96 10/04/19 03:19 74 33 50 10/04/19 03:00 79 22 173/65 (101) 98 10/04/19 03:00 20 173/65 Mechanical Ventilator 50 10/04/19 02:59 165/60 10/04/19 02:30 74 20 162/60 (94) 97 10/04/19 02:00 75 22 152/58 (89) 95 10/04/19 02:00 20 152/58 Mechanical Ventilator 50 10/04/19 01:30 71 20 169/63 (98) 95 10/04/19 01:18 72 20 100 Mechanical Ventilator 50 74 20 50 10/04/19 01:00 72 20 158/62 (94) 98 10/04/19 01:00 20 158/62 Mechanical Ventilator 50 10/04/19 00:38 20 159/61 Mechanical Ventilator 50 10/04/19 00:35 159/61 10/04/19 00:30 73 20 159/61 (93) 98 10/04/19 00:00 99.0 72 20 153/61 (91) 98 10/04/19 00:00 20 153/61 Mechanical Ventilator 50 10/04/19 00:00 82 10/04/19 00:00 Mechanical Ventilator Mechanical Ventilator 10/03/19 23:30 72 20 145/58 (87) 97 10/03/19 23:23 73 20 50 10/03/19 23:00 73 21 169/57 (94) 96 10/03/19 23:00 20 168/67 Mechanical Ventilator 50 10/03/19 22:30 68 21 150/61 (90) 95 10/03/19 22:00 20 168/67 Mechanical Ventilator 50 10/03/19 22:00 69 19 168/67 (100) 95 10/03/19 21:49 72 163/61 10/03/19 21:30 71 19 163/61 (95) 96 10/03/19 21:07 77 23 50 10/03/19 21:00 20 156/62 Mechanical Ventilator 50 10/03/19 21:00 73 20 156/62 (93) 95 10/03/19 20:40 78 163/60 10/03/19 20:30 77 19 163/60 (94) 96 10/03/19 20:00 20 149/57 Mechanical Ventilator 50 10/03/19 20:00 Mechanical Ventilator Mechanical Ventilator 10/03/19 20:00 98.8 76 18 149/57 (87) 93 10/03/19 20:00 50 10/03/19 20:00 79 8 19:30 75 23 156/59 (91) 93 10/03/19 19:08 74 22 100 Mechanical Ventilator 50 75 20 50 10/03/19 19:00 73 21 161/66 (97) 95 820 19:00 20 161/66 Mechanical Ventilator 50 10/03/19 18:31 98.5 10/03/19 18:30 83 16 180/86 (117) 95 10/03/19 18:01 168/70 8 18:00 21 164/67 Mechanical Ventilator 50 10/03/19 18:00 78 21 164/67 (99) 94 10/03/19 17:30 85 23 168/79 (108) 93 10/03/19 17:00 16 168/70 Mechanical Ventilator 50 10/03/19 17:00 80 24 177/72 (107) 91 10/03/19 16:37 73 34 50 10/03/19 16:30 98.3 79 23 163/62 (95) 92 10/03/19 16:00 Mechanical Ventilator Mechanical Ventilator 10/03/19 16:00 45 10/03/19 16:00 20 159/63 Mechanical Ventilator 50 10/03/19 16:00 74 20 154/64 (94) 94 10/03/19 16:00 81 10/03/19 15:30 74 20 157/61 (93) 96 10/03/19 15:14 71 34 45 10/03/19 15:00 71 22 168/64 (98) 96 10/03/19 15:00 19 168/64 Mechanical Ventilator 50 10/03/19 14:30 34 168/64 Mechanical Ventilator 10.0 50 10/03/19 14:29 20 159/61 Mechanical Ventilator 50 10/03/19 14:00 20 151/57 Mechanical Ventilator 50 10/03/19 14:00 72 20 151/57 (88) 95 10/03/19 13:09 69 162/63 10/03/19 13:00 20 147/56 Mechanical Ventilator 50 10/03/19 13:00 65 20 145/55 (85) 92 10/03/19 12:54 69 20 97 Mechanical Ventilator 45 76 20 45 10/03/19 12:00 98.5 73 21 162/63 (96) 92 10/03/19 12:00 21 162/63 Mechanical Ventilator 50 10/03/19 12:00 72 10/03/19 12:00 Mechanical Ventilator Mechanical Ventilator 10/03/19 12:00 45 10/03/19 11:58 155/65 10/03/19 11:00 71 21 155/65 (95) 92 10/03/19 10:59 75 24 45 10/03/19 10:55 21 159/60 Mechanical Ventilator 45 10/03/19 10:30 71 21 158/61 (93) 93 10/03/19 10:04 73 21 159/60 (93) 93 10/03/19 10:00 20 159/60 Mechanical Ventilator 50 10/03/19 10:00 74 21 158/67 (97) 93 10/03/19 09:45 21 150/57 Mechanical Ventilator 50 10/03/19 09:30 76 21 150/57 (88) 93 10/03/19 09:30 21 157/67 Mechanical Ventilator 50 10/03/19 09:15 10 168/62 Mechanical Ventilator 50 10/03/19 09:00 82 16 168/62 (97) 93 10/03/19 09:00 17 188/84 Mechanical Ventilator 50 10/03/19 08:58 67 159/62 10/03/19 08:40 67 20 45 10/03/19 08:30 80 20 164/67 (99) 93 10/03/19 08:00 60 10/03/19 08:00 69 20 145/62 (89) 93 10/03/19 08:00 20 137/57 Mechanical Ventilator 50 10/03/19 08:00 74 10/03/19 08:00 Mechanical Ventilator Mechanical Ventilator Height (Feet): 5 Height (Inches): 5.00 Weight (Pounds): 135 Gen: Older woman, on vent CV: RRR Pulm: CTAB anteriorly on vent Abd: Soft, non-distended Ext: No c/c Neuro: Minimally interactive Laboratory Tests Test 10/03/19 08:02 10/04/19 05:43 Arterial Blood pH 7.469 (7.350-7.450) Arterial Blood Partial Pressure CO2 40.1 mmHg (35.0-45.0) Arterial Blood Partial Pressure O2 54.3 mmHg (75.0-100.0) L Arterial Blood HCO3 28.5 mmol/L (22.0-26.0) H Arterial Blood Oxygen Saturation 88.7 % (95-100) *L Arterial Blood Base Excess 4.4 (-2-2) H Rojas Test Positive White Blood Count 6.1 K/UL (4.8-10.8) Red Blood Count 2.95 M/UL (4.20-5.40) L Hemoglobin 9.0 G/DL (12.0-16.0) L Hematocrit 28.3 % (37.0-47.0) L Mean Corpuscular Volume 96 FL (80-99) Mean Corpuscular Hemoglobin 30.4 PG (27.0-31.0) Mean Corpuscular Hemoglobin Concent 31.7 G/DL (32.0-36.0) L Red Cell Distribution Width 14.2 % (11.6-14.8) Platelet Count 354 K/UL (150-450) Mean Platelet Volume 5.6 FL (6.5-10.1) L Neutrophils (%) (Auto) 62.5 % (45.0-75.0) Lymphocytes (%) (Auto) 22.6 % (20.0-45.0) Monocytes (%) (Auto) 8.3 % (1.0-10.0) Eosinophils (%) (Auto) 5.1 % (0.0-3.0) H Basophils (%) (Auto) 1.5 % (0.0-2.0) Sodium Level 140 MMOL/L (136-145) Potassium Level 3.1 MMOL/L (3.5-5.1) L Chloride Level 103 MMOL/L (98-107) Carbon Dioxide Level 28 MMOL/L (21-32) Anion Gap 10 mmol/L (5-15) Blood Urea Nitrogen 67 mg/dL (7-18) H Creatinine 2.2 MG/DL (0.55-1.30) H Estimat Glomerular Filtration Rate 23.9 mL/min (>60) Glucose Level 94 MG/DL (74-106) Uric Acid 5.7 MG/DL (2.6-7.2) Calcium Level 8.5 MG/DL (8.5-10.1) Phosphorus Level 4.8 MG/DL (2.5-4.9) Magnesium Level 2.5 MG/DL (1.8-2.4) H Total Bilirubin 0.2 MG/DL (0.2-1.0) Aspartate Amino Transf (AST/SGOT) 23 U/L (15-37) Alanine Aminotransferase (ALT/SGPT) 7 U/L (12-78) L Alkaline Phosphatase 147 U/L (46-116) H C-Reactive Protein, Quantitative 9.4 mg/dL (0.00-0.90) H Total Protein 6.5 G/DL (6.4-8.2) Albumin 1.7 G/DL (3.4-5.0) L Globulin 4.8 g/dL Albumin/Globulin Ratio 0.4 (1.0-2.7) L Current Medications Medications (Trade) Dose Ordered Sig/Penny Route PRN Reason Start Time Stop Time Status Last Admin Dose Admin Acetaminophen (Tylenol) 325 mg Q6H PRN GT Temp >100.5 09/23/19 10:45 10/23/19 10:44 09/23/19 18:55 Albuterol/ Ipratropium (Albuterol/ Ipratropium) 3 ml Q6HRT HHN 09/30/19 13:00 10/04/19 12:59 10/04/19 07:04 Ceftolozane/ Tazobactam 0.45 gm/Sodium Chloride 110 ml @ 110 mls/hr Q8H IV 09/28/19 20:00 10/05/19 19:59 10/04/19 03:55 Chlorhexidine Gluconate (Ling-Hex 2%) 1 applic DAILY@2000 TOPIC 09/23/19 20:00 12/22/19 19:59 10/03/19 20:07 Diltiazem HCl (Cardizem Tab) 30 mg EVERY 8 HOURS GT 09/25/19 14:00 10/15/19 11:59 10/04/19 05:42 Docusate Sodium (Colace) 100 mg Q8H GT 09/29/19 08:30 10/29/19 08:29 10/04/19 00:35 Epoetin Gelacio (Epoetin Gelacio(ESRD on dialysis)) 10,000 unit MON-MON-MON SUBQ 09/25/19 21:00 12/24/19 20:59 10/02/19 20:45 Fentanyl Citrate 250 ml @ 0 mls/hr Q24H IV 10/01/19 14:30 10/05/19 14:29 10/04/19 00:38 Gentamicin Protocol (Gentamicin pharmacy to dose) 1 ea DAILY PRN MISC Per rx protocol 09/28/19 13:15 10/28/19 13:14 Heparin Sodium (Porcine) (Heparin 5000 units/ml) 5,000 units EVERY 12 HOURS SUBQ 09/17/19 21:00 10/30/19 08:59 10/03/19 20:41 Hydralazine HCl (Apresoline) 10 mg Q4H PRN IV BP over 160 systolic 09/17/19 11:15 12/14/19 11:14 10/04/19 02:59 Lactulose (Cephulac) 10 gm THREE TIMES A DAY ORAL 10/03/19 13:00 11/02/19 12:59 10/03/19 18:01 Lansoprazole (Prevacid) 30 mg Q12HR GT 09/27/19 21:00 10/27/19 20:59 10/03/19 20:41 Metoclopramide HCl (Reglan) 10 mg Q8H IVP 09/29/19 14:00 10/29/19 13:59 10/04/19 05:41 Metoprolol Tartrate (Lopressor) 25 mg EVERY 12 HOURS GT 09/25/19 21:00 12/14/19 20:59 10/03/19 20:40 Midazolam HCl (Versed 2mg/2ml vial) 1 mg Q4H PRN IVP For Anxiety 09/21/19 09:30 12/20/19 09:29 10/04/19 02:59 Minoxidil (Loniten) 2.5 mg Q6HR GT 10/03/19 12:00 12/31/19 13:59 10/04/19 05:42 Olanzapine (ZyPREXA) 2.5 mg DAILY GT 09/18/19 09:00 10/30/19 08:59 10/03/19 08:58 Polyethylene Glycol (Miralax) 17 gm BEDTIME ORAL 10/01/19 21:00 10/31/19 20:59 10/03/19 20:40 Sertraline HCl (Zoloft) 100 mg BEDTIME GT 09/17/19 21:00 10/15/19 20:59 10/03/19 20:40 Sorbitol (sorbitoL) 30 ml EVERY 6 HOURS PRN GT Constipation 09/29/19 18:00 10/29/19 17:59 10/01/19 00:44 Tramadol HCl (Ultram) 25 mg Q6HR GT 09/27/19 09:45 10/04/19 09:44 10/04/19 05:41 Ro Pack M.D. Oct 04, 2019 07:55
[2019-10-04] MEDS: Lactulose 10gm/15ml UDC ORAL SCH ×3 (08:56→17:32)
[2019-10-04] MEDS: OLANZapine 2.5mg tab GT SCH (08:57)
[2019-10-04] MEDS: Heparin 5000 units/ml inj SUBQ SCH ×2 (08:58→20:15)
--- NOTE | 2019-10-04 09:03 | Hematology/Onc Progress Note ---
Assessment/Plan Assessment/Plan Assessment and Recs # Leukocytosis, now with gram positive bacteremias well as pna noted --> historically --> PPM site (pocket) infection (redness and pain, bacteremia) and likely pocket abscess - no vegetation seen on ABBIE --> is s'p pm removal and also pocket infection is better --> per cards recs in re to tach/davis --> wbc 15-->19-->17-->15-->13->12-->13-->12>13-->18-->9-->7 --> ABX cefepime/levaquin--> vanc/angelo --> ID recs are noted # Anemia of chronic disease due to underlying chronic medical issues, multifactorial --> Anemia workup has been reviewed, cw acd --> No evidence of hemolysis is noted, peripheral smear has been reviewed. --> Hgb goal >7. Transfuse prn. --> Epogen started --> Medications have been reviewed --> low threshold for gi evaluation in case has occult + --> hgb 7.1-->7.8-->8.9->9.2-->8.5-->9.7-->10-->8.8-->9.6-->8.7->8.6-->7.2->8.7- >9.1-->9.2-->9 --> 1 unit prbc 09/27 # Thrombocytois is likely reactive process, is s/p infection --> plt trend 610k-->706k-->354 --> p smear reviewed # Acute hypoxic respiratory failure s/p intubation 11/23- ?ARDS --> on vent/trach # Gram positive bacteremia- real bacteremia- 2ry to above and probable PNA --> per id care # JAVIER initially >2 --> now improved with D5w # Dysphagia s/p peg # Thoracic aortic dissection s/p repair early 2017 # Psychiatric history on ativan/haldol # [place] resident # Dvt ppx heparin sq The timing of this note does not necessarily reflect the time of the patient was seen. Greatly appreciate consultation. Subjective HEENT: Denies: no symptoms, eye pain, blurred vision, tearing, double vision, ear pain, ear discharge, nose pain, nose congestion, throat pain, throat swelling, mouth pain, mouth swelling, other Cardiovascular: Denies: no symptoms, chest pain, edema, irregular heart rate, lightheadedness, palpitations, syncope, other Respiratory: Denies: no symptoms, cough, shortness of breath, SOB with excertion, SOB at rest, sputum, wheezing, other Gastrointestinal/Abdominal: Denies: no symptoms, abdomen distended, abdominal pain, black stools, tarry stools, blood in stool, constipated, diarrhea, difficulty swallowing, nausea, poor appetite, poor fluid intake, rectal bleeding , vomiting, other Genitourinary: Denies: no symptoms, burning, discharge, frequency, flank pain, hematuria, incontinence, pain, urgency, other Neurologic/Psychiatric: Denies: no symptoms, anxiety, depressed, emotional problems, headache, numbness, paresthesia, pre-existing deficit, seizure, tingling, tremors, weakness, other Hematologic/Lymphatic: Denies: no symptoms, anemia, easy bleeding, easy bruising, adenopathy, other Allergies: Coded Allergies: No Known Allergies (Unverified , 10/10/17) Subjective 09/16 on vent now, consulted in am pulm, on vent setting, labs noted, hep sq 09/17 meds noted, cbc noted, labs noted, no bleeding 09/18 is to undergo potential v/q scan given abg, labs noted, resless, on ativan, to get haldol today, roman ramesh 09/19 remains agitated, covering, with sacral wound seeping, likely cause of anemia, roman ramesh 09/26 restless, remains agitated, gtube ripped, eval with rn, and vosoghi consulted 09/27 remains on vent, agitated, seen by gi, hgb low, roman George to transfuse 1 unit prbc 09/28 meds noted, no bleeding, on vent, s/p blood tranfusion, cbc pending, roman ramesh 09/29 remains in the icu, roman rn in the am, agitated, on versed, fentanyl, restraints 09/30 in icu, trach to vent, on gtube feeds, fentanyl, agitated 10/01 in icu, roman Ayoub rn, no bleeding, sleeping, labs noted, hgb >9 10/02 sedated in icu, is on vent, dw rn, more alert and more conversive with face grimaces 10/03 labs have been reviewed, no bleeding, icu, meds reviewed, on fentanyl and versed, to consult psych Objective Objective Current Medications Medications (Trade) Dose Ordered Sig/Penny Route PRN Reason Start Time Stop Time Status Last Admin Dose Admin Acetaminophen (Tylenol) 325 mg Q6H PRN GT Temp >100.5 09/23/19 10:45 10/23/19 10:44 09/23/19 18:55 Albuterol/ Ipratropium (Albuterol/ Ipratropium) 3 ml Q6HRT HHN 09/30/19 13:00 10/04/19 12:59 10/04/19 07:04 Chlorhexidine Gluconate (Ling-Hex 2%) 1 applic DAILY@1999 TOPIC 09/23/19 20:00 12/22/19 19:59 10/03/19 20:07 Diltiazem HCl (Cardizem Tab) 30 mg EVERY 8 HOURS GT 09/25/19 14:00 10/15/19 11:59 10/04/19 05:42 Docusate Sodium (Colace) 100 mg Q8H GT 09/29/19 08:30 10/29/19 08:29 10/04/19 08:56 Epoetin Gelacio (Epoetin Gelacio(ESRD on dialysis)) 10,000 unit MON-MON-MON SUBQ 09/25/19 21:00 12/24/19 20:59 10/02/19 20:45 Fentanyl Citrate 250 ml @ 0 mls/hr Q24H IV 10/01/19 14:30 10/05/19 14:29 10/04/19 00:38 Heparin Sodium (Porcine) (Heparin 5000 units/ml) 5,000 units EVERY 12 HOURS SUBQ 09/17/19 21:00 10/30/19 08:59 10/04/19 08:58 Hydralazine HCl (Apresoline) 10 mg Q4H PRN IV BP over 160 systolic 09/17/19 11:15 12/14/19 11:14 10/04/19 02:59 Lactulose (Cephulac) 10 gm THREE TIMES A DAY ORAL 10/03/19 13:00 11/02/19 12:59 10/04/19 08:56 Lansoprazole (Prevacid) 30 mg Q12HR GT 09/27/19 21:00 10/27/19 20:59 10/04/19 08:57 Metoclopramide HCl (Reglan) 10 mg Q8H IVP 09/29/19 14:00 10/29/19 13:59 10/04/19 05:41 Metoprolol Tartrate (Lopressor) 25 mg EVERY 12 HOURS GT 09/25/19 21:00 12/14/19 20:59 10/04/19 08:57 Midazolam HCl (Versed 2mg/2ml vial) 1 mg Q4H PRN IVP For Anxiety 09/21/19 09:30 12/20/19 09:29 10/04/19 08:56 Minoxidil (Loniten) 2.5 mg Q6HR GT 10/03/19 12:00 12/31/19 13:59 10/04/19 05:42 Olanzapine (ZyPREXA) 2.5 mg DAILY GT 09/18/19 09:00 10/30/19 08:59 10/04/19 08:57 Polyethylene Glycol (Miralax) 17 gm BEDTIME ORAL 10/01/19 21:00 10/31/19 20:59 10/03/19 20:40 Potassium Chloride 100 ml @ 100 mls/hr Q1HR IVPB 10/04/19 09:00 10/04/19 12:59 10/04/19 09:00 Sertraline HCl (Zoloft) 100 mg BEDTIME GT 09/17/19 21:00 10/15/19 20:59 10/03/19 20:40 Sorbitol (sorbitoL) 30 ml EVERY 6 HOURS PRN GT Constipation 09/29/19 18:00 10/29/19 17:59 10/01/19 00:44 Tramadol HCl (Ultram) 25 mg Q6HR GT 09/27/19 09:45 10/04/19 09:44 10/04/19 05:41 Last 24 Hour Vital Signs Date Time Temp Pulse Resp B/P (MAP) Pulse Ox O2 Delivery O2 Flow Rate FiO2 10/04/19 08:57 84 149/62 10/04/19 07:09 84 20 99 Mechanical Ventilator 50 89 22 50 10/04/19 06:30 72 19 149/62 (91) 97 10/04/19 06:00 21 148/62 Endotracheal Tube 50 10/04/19 06:00 77 19 148/62 (90) 97 10/04/19 05:42 143/61 10/04/19 05:42 75 143/61 10/04/19 05:30 76 20 143/61 (88) 97 10/04/19 05:15 78 21 50 10/04/19 05:00 77 20 155/63 (93) 97 10/04/19 05:00 21 155/63 Simple Mask 50.0 50 10/04/19 05:00 20 163/64 Mechanical Ventilator 50 10/04/19 04:30 86 20 164/68 (100) 99 10/04/19 04:00 81 20 163/64 (97) 99 10/04/19 04:00 79 10/04/19 04:00 Mechanical Ventilator Mechanical Ventilator 10/04/19 04:00 20 163/44 Mechanical Ventilator 10/04/19 04:00 50 10/04/19 03:30 83 18 163/64 (97) 96 10/04/19 03:19 74 33 50 10/04/19 03:00 79 22 173/65 (101) 98 10/04/19 03:00 20 173/65 Mechanical Ventilator 50 10/04/19 02:59 165/60 10/04/19 02:30 74 20 162/60 (94) 97 10/04/19 02:00 75 22 152/58 (89) 95 10/04/19 02:00 20 152/58 Mechanical Ventilator 50 10/04/19 01:30 71 20 169/63 (98) 95 10/04/19 01:18 72 20 100 Mechanical Ventilator 50 74 20 50 10/04/19 01:00 72 20 158/62 (94) 98 10/04/19 01:00 20 158/62 Mechanical Ventilator 50 10/04/19 00:38 20 159/61 Mechanical Ventilator 50 10/04/19 00:35 159/61 10/04/19 00:30 73 20 159/61 (93) 98 10/04/19 00:00 99.0 72 20 153/61 (91) 98 10/04/19 00:00 20 153/61 Mechanical Ventilator 50 10/04/19 00:00 82 10/04/19 00:00 Mechanical Ventilator Mechanical Ventilator 8/20/20 23:30 72 20 145/58 (87) 97 8/20/20 23:23 73 20 50 8/20/20 23:00 73 21 169/57 (94) 96 8/20/20 23:00 20 168/67 Mechanical Ventilator 50 8/20/20 22:30 68 21 150/61 (90) 95 8/20/20 22:00 20 168/67 Mechanical Ventilator 50 820/20 22:00 69 19 168/67 (100) 95 820/20 21:49 72 163/61 8/20/20 21:30 71 19 163/61 (95) 96 8/20/20 21:07 77 23 50 820/20 21:00 20 156/62 Mechanical Ventilator 50 82020 21:00 73 20 156/62 (93) 95 820/20 20:40 78 163/60 8/20/20 20:30 77 19 163/60 (94) 96 82020 20:00 20 149/57 Mechanical Ventilator 50 820 20:00 Mechanical Ventilator Mechanical Ventilator 820 20:00 98.8 76 18 149/57 (87) 93 820/20 20:00 50 820/20 20:00 79 820/20 19:30 75 23 156/59 (91) 93 82020 19:08 74 22 100 Mechanical Ventilator 50 75 20 50 820/20 19:00 73 21 161/66 (97) 95 820/20 19:00 20 161/66 Mechanical Ventilator 50 2020 18:31 98.5 820/20 18:30 83 16 180/86 (117) 95 820/20 18:01 168/70 820/20 18:00 21 164/67 Mechanical Ventilator 50 820/20 18:00 78 21 164/67 (99) 94 820/20 17:30 85 23 168/79 (108) 93 820/20 17:00 16 168/70 Mechanical Ventilator 50 820/20 17:00 80 24 177/72 (107) 91 820/20 16:37 73 34 50 820/20 16:30 98.3 79 23 163/62 (95) 92 820/20 16:00 Mechanical Ventilator Mechanical Ventilator 8/20/20 16:00 45 10/03/19 16:00 20 159/63 Mechanical Ventilator 50 10/03/19 16:00 74 20 154/64 (94) 94 10/03/19 16:00 81 10/03/19 15:30 74 20 157/61 (93) 96 10/03/19 15:14 71 34 45 10/03/19 15:00 71 22 168/64 (98) 96 10/03/19 15:00 19 168/64 Mechanical Ventilator 50 10/03/19 14:30 34 168/64 Mechanical Ventilator 10.0 50 10/03/19 14:29 20 159/61 Mechanical Ventilator 50 10/03/19 14:00 20 151/57 Mechanical Ventilator 50 10/03/19 14:00 72 20 151/57 (88) 95 10/03/19 13:09 69 162/63 10/03/19 13:00 20 147/56 Mechanical Ventilator 50 10/03/19 13:00 65 20 145/55 (85) 92 10/03/19 12:54 69 20 97 Mechanical Ventilator 45 76 20 45 10/03/19 12:00 98.5 73 21 162/63 (96) 92 10/03/19 12:00 21 162/63 Mechanical Ventilator 50 10/03/19 12:00 72 10/03/19 12:00 Mechanical Ventilator Mechanical Ventilator 10/03/19 12:00 45 10/03/19 11:58 155/65 10/03/19 11:00 71 21 155/65 (95) 92 10/03/19 10:59 75 24 45 10/03/19 10:55 21 159/60 Mechanical Ventilator 45 10/03/19 10:30 71 21 158/61 (93) 93 10/03/19 10:04 73 21 159/60 (93) 93 10/03/19 10:00 20 159/60 Mechanical Ventilator 50 10/03/19 10:00 74 21 158/67 (97) 93 10/03/19 09:45 21 150/57 Mechanical Ventilator 50 10/03/19 09:30 76 21 150/57 (88) 93 10/03/19 09:30 21 157/67 Mechanical Ventilator 50 10/03/19 09:15 10 168/62 Mechanical Ventilator 50 10/03/19 09:00 82 16 168/62 (97) 93 8/20/20 09:00 17 188/84 Mechanical Ventilator 50 8/20 08:58 67 159/62 8/20/20 08:40 67 20 45 82020 08:30 80 20 164/67 (99) 93 8/20/20 08:00 60 8/20/20 08:00 69 20 145/62 (89) 93 820 08:00 20 137/57 Mechanical Ventilator 50 820 08:00 74 8/2020 08:00 Mechanical Ventilator Mechanical Ventilator 820 07:30 74 21 137/57 (83) 92 820 07:29 68 21 98 Mechanical Ventilator 45 69 20 45 8 07:15 72 25 159/62 (94) 85 820 07:00 24 155/63 Mechanical Ventilator 55 820 07:00 72 24 155/63 (93) 86 8 06:45 71 22 149/60 (89) 88 8 06:30 71 19 150/65 (93) 93 8 06:15 79 23 156/59 (91) 94 10/03/19 06:15 21 150/65 Mechanical Ventilator 55 10/03/19 06:00 75 21 178/63 (101) 99 10/03/19 06:00 20 156/59 Mechanical Ventilator 55 10/03/19 05:59 137/67 8 05:58 70 137/67 8/20 05:45 72 21 137/67 (90) 93 10/03/19 05:30 72 22 147/61 (89) 93 10/03/19 05:15 73 21 133/63 (86) 94 10/03/19 05:09 74 21 55 820/20 05:00 73 20 142/64 (90) 94 20 05:00 20 133/63 Mechanical Ventilator 55 8 04:45 26 143/62 Mechanical Ventilator 55 820 04:45 76 17 157/66 (96) 94 820 04:30 72 19 143/62 (89) 96 820 04:15 71 15 157/68 (97) 96 8 04:00 98.9 75 16 171/63 (99) 93 8/20/20 04:00 18 157/68 Mechanical Ventilator 55 10/03/19 04:00 60 10/03/19 04:00 Mechanical Ventilator Mechanical Ventilator 10/03/19 03:45 67 19 154/64 (94) 94 10/03/19 03:30 66 19 148/64 (92) 92 10/03/19 03:25 67 10/03/19 03:15 66 20 136/63 (87) 91 10/03/19 03:08 75 20 55 10/03/19 03:00 66 20 136/63 (87) 93 10/03/19 03:00 20 136/63 Mechanical Ventilator 55 10/03/19 02:45 68 18 138/63 (88) 93 10/03/19 02:30 69 17 148/64 (92) 95 10/03/19 02:15 70 18 140/66 (90) 94 10/03/19 02:00 21 140/66 Mechanical Ventilator 55 10/03/19 02:00 70 20 140/68 (92) 94 10/03/19 01:45 69 21 145/72 (96) 94 10/03/19 01:30 70 21 148/64 (92) 94 10/03/19 01:15 69 21 138/69 (92) 93 10/03/19 01:00 20 138/63 Mechanical Ventilator 55 10/03/19 01:00 71 20 138/63 (88) 95 10/03/19 00:45 69 20 145/61 (89) 92 10/03/19 00:30 66 20 135/60 (85) 93 10/03/19 00:30 65 20 94 Mechanical Ventilator 55 68 20 45 10/03/19 00:15 66 20 145/64 (91) 92 10/03/19 00:00 97.8 64 20 139/74 (95) 92 10/03/19 00:00 20 145/64 Mechanical Ventilator 55 10/03/19 00:00 Mechanical Ventilator Mechanical Ventilator 10/02/19 23:45 65 20 137/61 (86) 93 10/02/19 23:32 65 10/02/19 23:30 65 20 121/58 (79) 92 10/02/19 23:15 68 20 141/61 (87) 94 10/02/19 23:00 20 132/63 Mechanical Ventilator 55 10/02/19 23:00 68 20 132/63 (86) 94 1920 22:45 68 19 145/64 (91) 95 20 22:41 70 20 50 20 22:30 66 20 130/62 (84) 94 1920 22:15 67 20 135/61 (85) 94 20 22:00 20 138/60 Mechanical Ventilator 55 10/02/19 22:00 66 20 138/60 (86) 95 20 21:53 152/65 20 21:53 66 152/35 20 21:45 67 20 152/65 (94) 94 10/02/19 21:30 68 20 142/68 (92) 94 10/02/19 21:15 69 20 146/65 (92) 94 20 21:00 71 21 137/66 (89) 94 20 21:00 20 146/65 Mechanical Ventilator 55 10/02/19 20:58 74 21 55 10/02/19 20:46 77 144/60 20 20:45 75 22 145/66 (92) 94 20 20:30 77 23 144/60 (88) 95 10/02/19 20:15 71 20 130/59 (82) 93 20 20:00 97.5 73 21 149/65 (93) 93 20 20:00 21 130/59 Mechanical Ventilator 55 20 20:00 60 20 20:00 Mechanical Ventilator Mechanical Ventilator 10/02/19 19:45 71 20 147/69 (95) 94 20 19:43 71 19/20 19:30 69 20 140/67 (91) 97 10/01/20 19:27 70 20 96 Mechanical Ventilator 55 71 20 45 10/01/ 19:15 71 21 147/66 (93) 92 20 19:00 73 23 142/63 (89) 94 10/01/20 19:00 22 154/64 Mechanical Ventilator 22 20 18:45 73 19 158/104 (122) 96 20 18:30 72 22 154/64 (94) 91 20 18:15 71 22 158/67 (97) 91 10/02/19 18:00 23 159/69 Mechanical Ventilator 55 10/02/19 18:00 72 23 159/68 (98) 91 10/02/19 17:45 73 22 152/63 (92) 91 10/02/19 17:30 70 21 137/60 (85) 90 10/02/19 17:15 74 23 151/64 (93) 91 10/02/19 17:13 55 10/02/19 17:09 74 21 60 10/02/19 17:00 74 22 142/62 (88) 92 10/02/19 17:00 22 142/62 Mechanical Ventilator 60 10/02/19 16:45 73 23 153/63 (93) 91 10/02/19 16:30 72 21 155/66 (95) 92 10/02/19 16:15 73 23 152/65 (94) 93 10/02/19 16:00 75 10/02/19 16:00 99.4 78 23 154/65 (94) 97 10/02/19 16:00 22 154/65 Mechanical Ventilator 60 10/02/19 16:00 60 10/02/19 16:00 Mechanical Ventilator Mechanical Ventilator 10/02/19 15:45 74 22 149/64 (92) 94 10/02/19 15:30 75 23 149/65 (93) 95 10/02/19 15:28 73 22 60 10/02/19 15:15 74 22 148/62 (90) 94 10/02/19 15:01 157/61 10/02/19 15:00 74 22 157/70 (99) 93 10/02/19 15:00 22 154/85 Mechanical Ventilator 60 10/02/19 14:56 74 157/61 10/02/19 14:55 23 157/61 Mechanical Ventilator 60 10/02/19 14:45 74 23 157/61 (93) 93 10/02/19 14:30 75 23 156/63 (94) 93 10/02/19 14:15 75 23 154/67 (96) 92 10/02/19 14:00 25 156/69 Mechanical Ventilator 50 10/02/19 14:00 74 24 156/69 (98) 90 10/02/19 13:45 74 25 159/61 (93) 89 10/02/19 13:30 77 24 160/64 (96) 90 10/02/19 13:15 74 27 160/64 (96) 91 10/02/19 13:00 22 166/58 Mechanical Ventilator 50 10/02/19 13:00 69 23 166/58 (94) 94 10/02/19 12:45 67 18 157/62 (93) 97 10/02/19 12:44 165/60 10/02/19 12:44 67 22 97 Mechanical Ventilator 45 67 21 45 10/02/19 12:30 64 20 165/60 (95) 96 10/02/19 12:15 64 21 163/62 (95) 97 10/02/19 12:00 50 10/02/19 12:00 99.7 65 20 160/62 (94) 97 10/02/19 12:00 20 160/62 Mechanical Ventilator 50 10/02/19 12:00 Mechanical Ventilator Mechanical Ventilator 10/02/19 12:00 66 10/02/19 11:45 66 21 166/65 (98) 97 10/02/19 11:30 65 20 160/63 (95) 99 10/02/19 11:15 66 21 168/63 (98) 99 10/02/19 11:00 21 173/63 Mechanical Ventilator 50 10/02/19 11:00 68 21 173/63 (99) 98 10/02/19 10:45 71 23 180/69 (106) 98 10/02/19 10:38 68 21 60 10/02/19 10:30 74 20 191/74 (113) 96 10/02/19 10:15 69 20 186/66 (106) 97 10/02/19 10:00 68 20 187/66 (106) 96 10/02/19 10:00 20 187/66 Mechanical Ventilator 60 10/02/19 09:48 68 20 184/63 (103) 95 10/02/19 09:45 69 20 184/65 (104) 96 10/02/19 09:38 68 182/64 10/02/19 09:30 69 20 182/64 (103) 96 10/02/19 09:20 73 24 60 10/02/19 09:15 70 20 169/61 (97) 94 Intake and Output 10/03/19 10/04/19 19:00 07:00 Intake Total 1471.50 ml 1030 ml Output Total 330 ml 410 ml Balance 1141.50 ml 620 ml Intake Free Water 90 ml IV Total 901.50 ml 460 ml Tube Feeding 480 ml 480 ml Other 90 ml Output Urine Total 330 ml 410 ml # Bowel Movements 1 Labs Test 10/02/19 04:25 10/02/19 07:57 10/03/19 02:50 10/03/19 08:02 White Blood Count 7.1 K/UL (4.8-10.8) 6.9 K/UL (4.8-10.8) Red Blood Count 2.96 M/UL (4.20-5.40) 3.09 M/UL (4.20-5.40) Hemoglobin 9.2 G/DL (12.0-16.0) 9.5 G/DL (12.0-16.0) Hematocrit 28.5 % (37.0-47.0) 29.9 % (37.0-47.0) Mean Corpuscular Volume 97 FL (80-99) 96 FL (80-99) Mean Corpuscular Hemoglobin 31.1 PG (27.0-31.0) 30.7 PG (27.0-31.0) Mean Corpuscular Hemoglobin Concent 32.2 G/DL (32.0-36.0) 31.8 G/DL (32.0-36.0) Red Cell Distribution Width 14.7 % (11.6-14.8) 14.3 % (11.6-14.8) Platelet Count 304 K/UL (150-450) 354 K/UL (150-450) Mean Platelet Volume 5.8 FL (6.5-10.1) 5.7 FL (6.5-10.1) Neutrophils (%) (Auto) 71.6 % (45.0-75.0) 65.7 % (45.0-75.0) Lymphocytes (%) (Auto) 18.3 % (20.0-45.0) 22.0 % (20.0-45.0) Monocytes (%) (Auto) 5.2 % (1.0-10.0) 6.8 % (1.0-10.0) Eosinophils (%) (Auto) 4.4 % (0.0-3.0) 4.6 % (0.0-3.0) Basophils (%) (Auto) 0.6 % (0.0-2.0) 0.8 % (0.0-2.0) Sodium Level 139 MMOL/L (136-145) 126 MMOL/L (136-145) Potassium Level 3.2 MMOL/L (3.5-5.1) 2.8 MMOL/L (3.5-5.1) Chloride Level 102 MMOL/L (98-107) 101 MMOL/L (98-107) Carbon Dioxide Level 30 MMOL/L (21-32) 29 MMOL/L (21-32) Anion Gap 7 mmol/L (5-15) -4 mmol/L (5-15) Blood Urea Nitrogen 61 mg/dL (7-18) 67 mg/dL (7-18) Creatinine 2.2 MG/DL (0.55-1.30) 2.2 MG/DL (0.55-1.30) Estimat Glomerular Filtration Rate 23.9 mL/min (>60) 23.9 mL/min (>60) Glucose Level 90 MG/DL (74-106) 105 MG/DL (74-106) Calcium Level 8.7 MG/DL (8.5-10.1) 8.7 MG/DL (8.5-10.1) Phosphorus Level 4.0 MG/DL (2.5-4.9) 4.1 MG/DL (2.5-4.9) Magnesium Level 2.3 MG/DL (1.8-2.4) 2.4 MG/DL (1.8-2.4) Total Bilirubin 0.3 MG/DL (0.2-1.0) 0.3 MG/DL (0.2-1.0) Aspartate Amino Transf (AST/SGOT) 19 U/L (15-37) 25 U/L (15-37) Alanine Aminotransferase (ALT/SGPT) 10 U/L (12-78) 6 U/L (12-78) Alkaline Phosphatase 131 U/L (46-116) 136 U/L (46-116) C-Reactive Protein, Quantitative 11.9 mg/dL (0.00-0.90) 10.9 mg/dL (0.00-0.90) Pro-B-Type Natriuretic Peptide > 10432 pg/mL (0-125) > 83563 pg/mL (0-125) Total Protein 6.4 G/DL (6.4-8.2) 6.5 G/DL (6.4-8.2) Albumin 1.6 G/DL (3.4-5.0) 1.6 G/DL (3.4-5.0) Globulin 4.8 g/dL 4.9 g/dL Albumin/Globulin Ratio 0.3 (1.0-2.7) 0.3 (1.0-2.7) Arterial Blood pH 7.454 (7.350-7.450) 7.469 (7.350-7.450) Arterial Blood Partial Pressure CO2 38.1 mmHg (35.0-45.0) 40.1 mmHg (35.0-45.0) Arterial Blood Partial Pressure O2 67.0 mmHg (75.0-100.0) 54.3 mmHg (75.0-100.0) Arterial Blood HCO3 26.1 mmol/L (22.0-26.0) 28.5 mmol/L (22.0-26.0) Arterial Blood Oxygen Saturation 93.1 % (95-100) 88.7 % (95-100) Arterial Blood Base Excess 2.2 (-2-2) 4.4 (-2-2) Rojas Test Positive Positive Uric Acid 5.3 MG/DL (2.6-7.2) Test 10/04/19 05:43 White Blood Count 6.1 K/UL (4.8-10.8) Red Blood Count 2.95 M/UL (4.20-5.40) Hemoglobin 9.0 G/DL (12.0-16.0) Hematocrit 28.3 % (37.0-47.0) Mean Corpuscular Volume 96 FL (80-99) Mean Corpuscular Hemoglobin 30.4 PG (27.0-31.0) Mean Corpuscular Hemoglobin Concent 31.7 G/DL (32.0-36.0) Red Cell Distribution Width 14.2 % (11.6-14.8) Platelet Count 354 K/UL (150-450) Mean Platelet Volume 5.6 FL (6.5-10.1) Neutrophils (%) (Auto) 62.5 % (45.0-75.0) Lymphocytes (%) (Auto) 22.6 % (20.0-45.0) Monocytes (%) (Auto) 8.3 % (1.0-10.0) Eosinophils (%) (Auto) 5.1 % (0.0-3.0) Basophils (%) (Auto) 1.5 % (0.0-2.0) Sodium Level 140 MMOL/L (136-145) Potassium Level 3.1 MMOL/L (3.5-5.1) Chloride Level 103 MMOL/L (98-107) Carbon Dioxide Level 28 MMOL/L (21-32) Anion Gap 10 mmol/L (5-15) Blood Urea Nitrogen 67 mg/dL (7-18) Creatinine 2.2 MG/DL (0.55-1.30) Estimat Glomerular Filtration Rate 23.9 mL/min (>60) Glucose Level 94 MG/DL (74-106) Uric Acid 5.7 MG/DL (2.6-7.2) Calcium Level 8.5 MG/DL (8.5-10.1) Phosphorus Level 4.8 MG/DL (2.5-4.9) Magnesium Level 2.5 MG/DL (1.8-2.4) Total Bilirubin 0.2 MG/DL (0.2-1.0) Aspartate Amino Transf (AST/SGOT) 23 U/L (15-37) Alanine Aminotransferase (ALT/SGPT) 7 U/L (12-78) Alkaline Phosphatase 147 U/L (46-116) C-Reactive Protein, Quantitative 9.4 mg/dL (0.00-0.90) Total Protein 6.5 G/DL (6.4-8.2) Albumin 1.7 G/DL (3.4-5.0) Globulin 4.8 g/dL Albumin/Globulin Ratio 0.4 (1.0-2.7) Height (Feet): 5 Height (Inches): 5.00 Weight (Pounds): 135 Objective Physical Exam: Vitals: reviewed General: NAD HEENT: nc, at Neck: supple ++tracn/vent Chest: clear breath sounds bilaterally Cardiovascular: RRR, no s3, s4 Abdomen: soft, nontender, nd +gtube Extremities: no cce, normal range of motion Neuro: alert Evan Muhammda MD Oct 04, 2019 09:03
--- NOTE | 2019-10-04 10:46 | Pulmonolgy Critical Care Note ---
Yara Castro SPECIALTY SALES REPRESENTATIVE 10/04/19 1046: Critical Care - Asmt/Plan Assessment/Plan: ASSESSMENT Acute on chronic hypoxemic respiratory failure ( trach dependent), now on vent Tracheostomy status, s/p change to cuffed trach Sepsis Pulmonary edema Pleural effusion -worsening left pl effusion s/p thoracentesis L pleural effusion 09/26 -900 ml Pneumonia with MDR Pseudomonas UTI CHF ? cardiorenal COPD Acute kidney injury and chronic kidney disease-requiring start of HD Hypertension Atrial fibrillation Moderate pulm HTN Moderate AR Dysphagia , feeding by G-tube Electrolyte abnormalities Anemia Toxic metabolic encephalopathy likely due to sepsis and ARF HTN PAF PLAN OF CARE ICU on vent AC trach changed 8/4 pm from uncuffed to cuffed Shiley#[address] chest w/out contrast: - Bilateral pleural effusions, right greater than left, with bilateral lower lobe consolidation or volume loss. -Ground-glass densities in the upper lobes bilaterally. This is not specific. -Tracheostomy. -Increased superior mediastinal density. Stability of adenopathy cannot be excluded. -Atherosclerotic change. -Gastrostomy. -Ascites. -Left renal stent with left hydronephrosis and renal atrophy. VQ scan -> low probability for PE worsening resp status was due to need for HD, now after HD started, resp status improving, down to PEEP 5 and AC 20 trach care , pulmonary toilet ABG this am on FiO2 45 % mild hypoxia, but pulse oximetry above 90% , keep as is and titrate Fio2 further down as tolerated fup with ABG and CXR in am Mucomyst was prior dc given lots of thin secretions, continue Duoneb prn rapid COVID 19 NGT x3 sedation with fentanyl gtt and Versed prn-> off Versed and on weaning from Fentanyl as tolerated unable to wean, gets agitated and anxious need psych eval s/p thoracentesis L pleural effusion 09/26 am -> 900 ml fluid analysis noted, unlikely empyema given small # of WBC fup with fluid cx ( apparently never sent despite orders) cytology -> NGT, no malignant cells aspiration precautions venous Duplex BLE -> NGT DVT prophylaxis pulm toilet, abx as per ID- s/p gent x 1, now on Vanco and Zerbaxa , completed 10/02 SCX 8/3 + Proteus, SCX 09/22 Pseudomonas MDR UCX 8/2 + Providencia , UCX 09/22 VRE 10-20 K only BCX 09/14 Staph epidermidis, BCX 09/15 NGT , BCX 09/22 and 09/26 - NGTD monitor volumes was on gentle IVF-> dc s/p prior diuretic-Lasix require initiation of HD close monitoring of volumes, renal parameters and lytes -per nephro recs HD as per nephro K replaced earlier this am ECHO with pEF , moderate pulm HTN and moderate AR BP management with current regimen of BB, Cardizem and Hydralazine, remains in SR monitor HH with goal to keep Hgb >7, heme on board on EPO supportive care pain management wound care bowel regimen psych eval Dr Linares pending s/p Seroquel x 1 by nephro thank you for a consult Critical Care - Objective Last 24 Hour Vital Signs Date Time Temp Pulse Resp B/P (MAP) Pulse Ox O2 Delivery O2 Flow Rate FiO2 10/04/19 09:04 175/68 10/04/19 08:57 84 149/62 10/04/19 07:09 84 20 99 Mechanical Ventilator 50 89 22 50 10/04/19 06:30 72 19 149/62 (91) 97 10/04/19 06:00 21 148/62 Endotracheal Tube 50 10/04/19 06:00 77 19 148/62 (90) 97 10/04/19 05:42 143/61 10/04/19 05:42 75 143/61 10/04/19 05:30 76 20 143/61 (88) 97 10/04/19 05:15 78 21 50 10/04/19 05:00 77 20 155/63 (93) 97 10/04/19 05:00 21 155/63 Simple Mask 50.0 50 10/04/19 05:00 20 163/64 Mechanical Ventilator 50 10/04/19 04:30 86 20 164/68 (100) 99 10/04/19 04:00 81 20 163/64 (97) 99 10/04/19 04:00 79 10/04/19 04:00 Mechanical Ventilator Mechanical Ventilator 10/04/19 04:00 20 163/44 Mechanical Ventilator 10/04/19 04:00 50 10/04/19 03:30 83 18 163/64 (97) 96 10/04/19 03:19 74 33 50 10/04/19 03:00 79 22 173/65 (101) 98 10/04/19 03:00 20 173/65 Mechanical Ventilator 50 10/04/19 02:59 165/60 10/04/19 02:30 74 20 162/60 (94) 97 10/04/19 02:00 75 22 152/58 (89) 95 10/04/19 02:00 20 152/58 Mechanical Ventilator 50 10/04/19 01:30 71 20 169/63 (98) 95 10/04/19 01:18 72 20 100 Mechanical Ventilator 50 74 20 50 10/04/19 01:00 72 20 158/62 (94) 98 10/04/19 01:00 20 158/62 Mechanical Ventilator 50 10/04/19 00:38 20 159/61 Mechanical Ventilator 50 10/04/19 00:35 159/61 10/04/19 00:30 73 20 159/61 (93) 98 10/04/19 00:00 99.0 72 20 153/61 (91) 98 10/04/19 00:00 20 153/61 Mechanical Ventilator 50 10/04/19 00:00 82 10/04/19 00:00 Mechanical Ventilator Mechanical Ventilator 10/03/19 23:30 72 20 145/58 (87) 97 10/03/19 23:23 73 20 50 10/03/19 23:00 73 21 169/57 (94) 96 10/03/19 23:00 20 168/67 Mechanical Ventilator 50 10/03/19 22:30 68 21 150/61 (90) 95 10/03/19 22:00 20 168/67 Mechanical Ventilator 50 10/03/19 22:00 69 19 168/67 (100) 95 10/03/19 21:49 72 163/61 10/03/19 21:30 71 19 163/61 (95) 96 10/03/19 21:07 77 23 50 10/03/19 21:00 20 156/62 Mechanical Ventilator 50 10/03/19 21:00 73 20 156/62 (93) 95 10/03/19 20:40 78 163/60 10/03/19 20:30 77 19 163/60 (94) 96 10/03/19 20:00 20 149/57 Mechanical Ventilator 50 10/03/19 20:00 Mechanical Ventilator Mechanical Ventilator 10/03/19 20:00 98.8 76 18 149/57 (87) 93 820/20 20:00 50 820/20 20:00 79 8/2020 19:30 75 23 156/59 (91) 93 820 19:08 74 22 100 Mechanical Ventilator 50 75 20 50 820/20 19:00 73 21 161/66 (97) 95 820 19:00 20 161/66 Mechanical Ventilator 50 10/03/19 18:31 98.5 8 18:30 83 16 180/86 (117) 95 20 18:01 168/70 820 18:00 21 164/67 Mechanical Ventilator 50 10/03/19 18:00 78 21 164/67 (99) 94 10/03/19 17:30 85 23 168/79 (108) 93 10/03/19 17:00 16 168/70 Mechanical Ventilator 50 10/03/19 17:00 80 24 177/72 (107) 91 10/03/19 16:37 73 34 50 10/03/19 16:30 98.3 79 23 163/62 (95) 92 10/03/19 16:00 Mechanical Ventilator Mechanical Ventilator 10/03/19 16:00 45 10/03/19 16:00 20 159/63 Mechanical Ventilator 50 10/03/19 16:00 74 20 154/64 (94) 94 10/03/19 16:00 81 10/03/19 15:30 74 20 157/61 (93) 96 10/03/19 15:14 71 34 45 10/03/19 15:00 71 22 168/64 (98) 96 10/03/19 15:00 19 168/64 Mechanical Ventilator 50 10/03/19 14:30 34 168/64 Mechanical Ventilator 10.0 50 10/03/19 14:29 20 159/61 Mechanical Ventilator 50 10/03/19 14:00 20 151/57 Mechanical Ventilator 50 10/03/19 14:00 72 20 151/57 (88) 95 10/03/19 13:09 69 162/63 8 13:00 20 147/56 Mechanical Ventilator 50 8 13:00 65 20 145/55 (85) 92 10/03/19 12:54 69 20 97 Mechanical Ventilator 45 76 20 45 10/03/19 12:00 98.5 73 21 162/63 (96) 92 10/03/19 12:00 21 162/63 Mechanical Ventilator 50 10/03/19 12:00 72 10/03/19 12:00 Mechanical Ventilator Mechanical Ventilator 10/03/19 12:00 45 10/03/19 11:58 155/65 10/03/19 11:00 71 21 155/65 (95) 92 10/03/19 10:59 75 24 45 10/03/19 10:55 21 159/60 Mechanical Ventilator 45 Objective: General Appearance: no apparent distress, bedridden middle age chronically ill looking female on vent AC 500-20- 50%, PEEP 5, anxious, moving excessively Lines, tubes and drains: left jugular HD catheter HEENT: normocephalic, atraumatic, anicteric, trach - Shiley #7 cuffed XLT, secretions moderate amount, yellow color , thick consistency Respiratory/Chest: no accessory muscle use, few scattered rhonchi bilaterally , Cardiovascular/Chest: normal rate, regular rhythm - SR on tele Abdomen: normal bowel sounds, non tender, soft, G tube Genitourinary/Rectal: [place] Extremities: no edema Skin Exam: warm/dry, multiple tattoos all over the body Neurologic: abnormal gait, anxious, excessive body movement Musculoskeletal: atrophy - BLE Critical Care - Subjective ROS Limited/Unobtainable: Yes Interval Events: remains afebrile, no leukocytosis 10/02 completed abx Rx this am more agitated, FiO2 increased to 50% CXR 10/02 no change from prior BP elevated unable to wean down from fentanyl gtt K-3.1 this am, already started on replacement as epr nephro recs Condition: critical IV Access: central - L internal jugular HD catheter intact EKG Rhythm: Sinus Rhythm FI02: 50 Vent Support Breath Rate: 20 Vent Support Mode: AC Vent Tidal Volume: 500 Sputum Amount: Moderate PEEP: 5.0 PIP: 30 Drips: Fentanyl gtt 200 mcg/hr Tube Feeding Amount: 40 I&O: Intake and Output 10/03/19 10/04/19 19:00 07:00 Intake Total 1471.50 ml 1030 ml Output Total 330 ml 410 ml Balance 1141.50 ml 620 ml Intake Free Water 90 ml IV Total 901.50 ml 460 ml Tube Feeding 480 ml 480 ml Other 90 ml Output Urine Total 330 ml 410 ml # Bowel Movements 1 CXR: CXR 10/02 The cardiomediastinal silhouette is unchanged in appearance. Stable interstitial edema. Unchanged bilateral pleural effusions. Redemonstration of bilateral perihilar airspace opacities. No pneumothorax. Unchanged cannulated tracheostomy and left approach tunneled dialysis catheter. Juve Martinez MD 10/04/19 1241: Critical Care - Asmt/Plan Assessment/Plan: Patient seen and examined with SPECIALTY SALES REPRESENTATIVE. Agree with above A&P as it reflects our joint deliberations. Ongoing issues with sedation. Fent gtt, PRN Versed and got Seroquel ---> change to standing 25 BID CPAP trial, return to AC if needed iHD per renal CCM o/w CCT 40 Yara Castro NP Oct 04, 2019 10:46 Juve Martinez MD Oct 04, 2019 12:41
[2019-10-04] MEDS ORDERED: Sterile Water Irrig 1000ml IRRIG ONE (11:49)
[2019-10-04] MEDS ORDERED: NS 275ml ONE ×2 (11:49)
[2019-10-04] MEDS ORDERED: Tubing IV Secondary IV ONE (11:49)
--- NOTE | 2019-10-04 12:31 | General Progress Note ---
Assessment/Plan Problem List: (1) S/P aortic dissection repair ICD Codes: Z98.890 - Other specified postprocedural states SNOMED: 607875421, 423664602 (2) Sacral decubitus ulcer, stage IV ICD Codes: L89.154 - Pressure ulcer of sacral region, stage 4 SNOMED: 649891256, 380025372 (3) Anemia ICD Codes: D64.9 - Anemia, unspecified SNOMED: 126858067 (4) GT CLOGGED (5) Feeding by G-tube ICD Codes: Z93.1 - Gastrostomy status SNOMED: 327423843, 559197378 (6) Tracheostomy in place ICD Codes: Z93.0 - Tracheostomy status SNOMED: 147043064 (7) Pacemaker ICD Codes: Z95.0 - Presence of cardiac pacemaker SNOMED: 756521026 (8) Chronic respiratory failure ICD Codes: J96.10 - Chronic respiratory failure, unspecified whether with hypoxia or hypercapnia SNOMED: 41203422 Assessment/Plan: GTF monitor for residuals repeat labs ICU care on lactulose Subjective ROS Limited/Unobtainable: No Allergies: Coded Allergies: No Known Allergies (Unverified , 10/10/17) Objective Last 24 Hour Vital Signs Date Time Temp Pulse Resp B/P (MAP) Pulse Ox O2 Delivery O2 Flow Rate FiO2 10/04/19 12:11 159/67 10/04/19 11:06 85 20 50 10/04/19 11:00 20 159/67 Mechanical Ventilator 50 10/04/19 11:00 87 20 159/67 (97) 97 10/04/19 10:45 24 175/68 Mechanical Ventilator 50.0 50 10/04/19 10:44 21 170/60 Mechanical Ventilator 50 10/04/19 10:30 93 19 176/69 (104) 98 10/04/19 10:00 114 31 180/79 (112) 95 10/04/19 10:00 20 159/67 Mechanical Ventilator 50 10/04/19 09:45 20 159/67 Mechanical Ventilator 50 10/04/19 09:30 88 20 154/65 (94) 97 10/04/19 09:30 21 154/65 Mechanical Ventilator 50 10/04/19 09:15 20 156/62 Mechanical Ventilator 50 10/04/19 09:04 175/68 10/04/19 09:00 94 20 172/68 (102) 97 10/04/19 09:00 21 172/68 Mechanical Ventilator 50 10/04/19 08:57 84 149/62 10/04/19 08:47 105 24 50 10/04/19 08:45 21 172/68 Mechanical Ventilator 50 10/04/19 08:30 21 178/68 Mechanical Ventilator 50 10/04/19 08:30 90 19 176/68 (104) 98 10/04/19 08:15 21 176/68 Mechanical Ventilator 50 10/04/19 08:00 75 10/04/19 08:00 50 10/04/19 08:00 Mechanical Ventilator Mechanical Ventilator 10/04/19 08:00 98.4 94 20 182/78 (112) 97 10/04/19 08:00 20 182/78 Mechanical Ventilator 50 10/04/19 07:30 99 21 194/88 (123) 93 10/04/19 07:09 84 20 99 Mechanical Ventilator 50 89 22 50 10/04/19 07:00 89 21 181/71 (107) 97 10/04/19 07:00 20 181/71 Mechanical Ventilator 50 10/04/19 06:30 72 19 149/62 (91) 97 10/04/19 06:00 21 148/62 Endotracheal Tube 50 10/04/19 06:00 77 19 148/62 (90) 97 10/04/19 05:42 143/61 10/04/19 05:42 75 143/61 10/04/19 05:30 76 20 143/61 (88) 97 10/04/19 05:15 78 21 50 10/04/19 05:00 77 20 155/63 (93) 97 10/04/19 05:00 21 155/63 Simple Mask 50.0 50 10/04/19 05:00 20 163/64 Mechanical Ventilator 50 10/04/19 04:30 86 20 164/68 (100) 99 10/04/19 04:00 81 20 163/64 (97) 99 10/04/19 04:00 79 10/04/19 04:00 Mechanical Ventilator Mechanical Ventilator 10/04/19 04:00 20 163/44 Mechanical Ventilator 10/04/19 04:00 50 10/04/19 03:30 83 18 163/64 (97) 96 10/04/19 03:19 74 33 50 10/04/19 03:00 79 22 173/65 (101) 98 10/04/19 03:00 20 173/65 Mechanical Ventilator 50 10/04/19 02:59 165/60 10/04/19 02:30 74 20 162/60 (94) 97 10/04/19 02:00 75 22 152/58 (89) 95 10/04/19 02:00 20 152/58 Mechanical Ventilator 50 10/04/19 01:30 71 20 169/63 (98) 95 10/04/19 01:18 72 20 100 Mechanical Ventilator 50 74 20 50 10/04/19 01:00 72 20 158/62 (94) 98 10/04/19 01:00 20 158/62 Mechanical Ventilator 50 10/04/19 00:38 20 159/61 Mechanical Ventilator 50 10/04/19 00:35 159/61 10/04/19 00:30 73 20 159/61 (93) 98 10/04/19 00:00 99.0 72 20 153/61 (91) 98 10/04/19 00:00 20 153/61 Mechanical Ventilator 50 10/04/19 00:00 82 10/04/19 00:00 Mechanical Ventilator Mechanical Ventilator 10/03/19 23:30 72 20 145/58 (87) 97 10/03/19 23:23 73 20 50 10/03/19 23:00 73 21 169/57 (94) 96 10/03/19 23:00 20 168/67 Mechanical Ventilator 50 10/03/19 22:30 68 21 150/61 (90) 95 10/03/19 22:00 20 168/67 Mechanical Ventilator 50 10/03/19 22:00 69 19 168/67 (100) 95 10/03/19 21:49 72 163/61 10/03/19 21:30 71 19 163/61 (95) 96 10/03/19 21:07 77 23 50 10/03/19 21:00 20 156/62 Mechanical Ventilator 50 10/03/19 21:00 73 20 156/62 (93) 95 10/03/19 20:40 78 163/60 10/03/19 20:30 77 19 163/60 (94) 96 10/03/19 20:00 20 149/57 Mechanical Ventilator 50 10/03/19 20:00 Mechanical Ventilator Mechanical Ventilator 10/03/19 20:00 98.8 76 18 149/57 (87) 93 10/03/19 20:00 50 10/03/19 20:00 79 10/03/19 19:30 75 23 156/59 (91) 93 10/03/19 19:08 74 22 100 Mechanical Ventilator 50 75 20 50 10/03/19 19:00 73 21 161/66 (97) 95 10/03/19 19:00 20 161/66 Mechanical Ventilator 50 10/03/19 18:31 98.5 10/03/19 18:30 83 16 180/86 (117) 95 10/03/19 18:01 168/70 10/03/19 18:00 21 164/67 Mechanical Ventilator 50 10/03/19 18:00 78 21 164/67 (99) 94 10/03/19 17:30 85 23 168/79 (108) 93 10/03/19 17:00 16 168/70 Mechanical Ventilator 50 10/03/19 17:00 80 24 177/72 (107) 91 10/03/19 16:37 73 34 50 10/03/19 16:30 98.3 79 23 163/62 (95) 92 10/03/19 16:00 Mechanical Ventilator Mechanical Ventilator 10/03/19 16:00 45 10/03/19 16:00 20 159/63 Mechanical Ventilator 50 10/03/19 16:00 74 20 154/64 (94) 94 10/03/19 16:00 81 10/03/19 15:30 74 20 157/61 (93) 96 10/03/19 15:14 71 34 45 10/03/19 15:00 71 22 168/64 (98) 96 10/03/19 15:00 19 168/64 Mechanical Ventilator 50 10/03/19 14:30 34 168/64 Mechanical Ventilator 10.0 50 10/03/19 14:29 20 159/61 Mechanical Ventilator 50 10/03/19 14:00 20 151/57 Mechanical Ventilator 50 10/03/19 14:00 72 20 151/57 (88) 95 10/03/19 13:09 69 162/63 10/03/19 13:00 20 147/56 Mechanical Ventilator 50 10/03/19 13:00 65 20 145/55 (85) 92 10/03/19 12:54 69 20 97 Mechanical Ventilator 45 76 20 45 Intake and Output 10/03/19 10/04/19 19:00 07:00 Intake Total 1471.50 ml 1050 ml Output Total 330 ml 410 ml Balance 1141.50 ml 640 ml Intake Free Water 90 ml IV Total 901.50 ml 480 ml Tube Feeding 480 ml 480 ml Other 90 ml Output Urine Total 330 ml 410 ml # Bowel Movements 1 Laboratory Tests 10/04/19 05:43: White Blood Count 6.1, Red Blood Count 2.95L, Hemoglobin 9.0L, Hematocrit 28.3L , Mean Corpuscular Volume 96, Mean Corpuscular Hemoglobin 30.4, Mean Corpuscular Hemoglobin Concent 31.7L, Red Cell Distribution Width 14.2, Platelet Count 354, Mean Platelet Volume 5.6L, Neutrophils (%) (Auto) 62.5, Lymphocytes (%) (Auto) 22.6, Monocytes (%) (Auto) 8.3, Eosinophils (%) (Auto) 5.1H, Basophils (%) (Auto) 1.5, Sodium Level 140, Potassium Level 3.1L, Chloride Level 103, Carbon Dioxide Level 28, Anion Gap 10, Blood Urea Nitrogen 67H, Creatinine 2.2H, Estimat Glomerular Filtration Rate 23.9, Glucose Level 94 , Uric Acid 5.7, Calcium Level 8.5, Phosphorus Level 4.8, Magnesium Level 2.5H, Total Bilirubin 0.2, Aspartate Amino Transf (AST/SGOT) 23, Alanine Aminotransferase (ALT/SGPT) 7L, Alkaline Phosphatase 147H, C-Reactive Protein, Quantitative 9.4H, Total Protein 6.5, Albumin 1.7L, Globulin 4.8, Albumin/ Globulin Ratio 0.4L Height (Feet): 5 Height (Inches): 5.00 Weight (Pounds): 135 General Appearance: no apparent distress EENT: normal ENT inspection Neck: supple Cardiovascular: normal rate Respiratory/Chest: decreased breath sounds Abdomen: normal bowel sounds, non tender, soft Extremities: non-tender Inder Mccauley MD Oct 04, 2019 12:31
--- NOTE | 2019-10-04 13:02 | Surgery Progress Note ---
Surgery Progress Note Subjective Additional Comments no acute events ill appearing no n/v/f/c Objective Last 24 Hour Vital Signs Date Time Temp Pulse Resp B/P (MAP) Pulse Ox O2 Delivery O2 Flow Rate FiO2 10/04/19 12:57 85 159/67 10/04/19 12:11 159/67 10/04/19 11:06 85 20 50 10/04/19 11:00 20 159/67 Mechanical Ventilator 50 10/04/19 11:00 87 20 159/67 (97) 97 10/04/19 10:45 24 175/68 Mechanical Ventilator 50.0 50 10/04/19 10:44 21 170/60 Mechanical Ventilator 50 10/04/19 10:30 93 19 176/69 (104) 98 10/04/19 10:00 114 31 180/79 (112) 95 10/04/19 10:00 20 159/67 Mechanical Ventilator 50 10/04/19 09:45 20 159/67 Mechanical Ventilator 50 10/04/19 09:30 88 20 154/65 (94) 97 10/04/19 09:30 21 154/65 Mechanical Ventilator 50 10/04/19 09:15 20 156/62 Mechanical Ventilator 50 10/04/19 09:04 175/68 10/04/19 09:00 94 20 172/68 (102) 97 10/04/19 09:00 21 172/68 Mechanical Ventilator 50 10/04/19 08:57 84 149/62 10/04/19 08:47 105 24 50 10/04/19 08:45 21 172/68 Mechanical Ventilator 50 10/04/19 08:30 21 178/68 Mechanical Ventilator 50 10/04/19 08:30 90 19 176/68 (104) 98 10/04/19 08:15 21 176/68 Mechanical Ventilator 50 10/04/19 08:00 75 10/04/19 08:00 50 10/04/19 08:00 Mechanical Ventilator Mechanical Ventilator 10/04/19 08:00 98.4 94 20 182/78 (112) 97 10/04/19 08:00 20 182/78 Mechanical Ventilator 50 10/04/19 07:30 99 21 194/88 (123) 93 10/04/19 07:09 84 20 99 Mechanical Ventilator 50 89 22 50 10/04/19 07:00 89 21 181/71 (107) 97 10/04/19 07:00 20 181/71 Mechanical Ventilator 50 10/04/19 06:30 72 19 149/62 (91) 97 10/04/19 06:00 21 148/62 Endotracheal Tube 50 10/04/19 06:00 77 19 148/62 (90) 97 10/04/19 05:42 143/61 10/04/19 05:42 75 143/61 10/04/19 05:30 76 20 143/61 (88) 97 10/04/19 05:15 78 21 50 10/04/19 05:00 77 20 155/63 (93) 97 10/04/19 05:00 21 155/63 Simple Mask 50.0 50 10/04/19 05:00 20 163/64 Mechanical Ventilator 50 10/04/19 04:30 86 20 164/68 (100) 99 10/04/19 04:00 81 20 163/64 (97) 99 10/04/19 04:00 79 10/04/19 04:00 Mechanical Ventilator Mechanical Ventilator 10/04/19 04:00 20 163/44 Mechanical Ventilator 10/04/19 04:00 50 10/04/19 03:30 83 18 163/64 (97) 96 10/04/19 03:19 74 33 50 10/04/19 03:00 79 22 173/65 (101) 98 10/04/19 03:00 20 173/65 Mechanical Ventilator 50 10/04/19 02:59 165/60 10/04/19 02:30 74 20 162/60 (94) 97 10/04/19 02:00 75 22 152/58 (89) 95 10/04/19 02:00 20 152/58 Mechanical Ventilator 50 10/04/19 01:30 71 20 169/63 (98) 95 10/04/19 01:18 72 20 100 Mechanical Ventilator 50 74 20 50 10/04/19 01:00 72 20 158/62 (94) 98 10/04/19 01:00 20 158/62 Mechanical Ventilator 50 10/04/19 00:38 20 159/61 Mechanical Ventilator 50 10/04/19 00:35 159/61 10/04/19 00:30 73 20 159/61 (93) 98 10/04/19 00:00 99.0 72 20 153/61 (91) 98 10/04/19 00:00 20 153/61 Mechanical Ventilator 50 8/21/20 00:00 82 8/21/20 00:00 Mechanical Ventilator Mechanical Ventilator 820/20 23:30 72 20 145/58 (87) 97 8/20/20 23:23 73 20 50 8/20/20 23:00 73 21 169/57 (94) 96 8/20/20 23:00 20 168/67 Mechanical Ventilator 50 8/20/20 22:30 68 21 150/61 (90) 95 820/20 22:00 20 168/67 Mechanical Ventilator 50 820/20 22:00 69 19 168/67 (100) 95 820/20 21:49 72 163/61 8/20/20 21:30 71 19 163/61 (95) 96 820/20 21:07 77 23 50 820/20 21:00 20 156/62 Mechanical Ventilator 50 820/20 21:00 73 20 156/62 (93) 95 820/20 20:40 78 163/60 8/20/20 20:30 77 19 163/60 (94) 96 82020 20:00 20 149/57 Mechanical Ventilator 50 820 20:00 Mechanical Ventilator Mechanical Ventilator 820/20 20:00 98.8 76 18 149/57 (87) 93 820/20 20:00 50 820/20 20:00 79 8/20/20 19:30 75 23 156/59 (91) 93 8/20/20 19:08 74 22 100 Mechanical Ventilator 50 75 20 50 820/20 19:00 73 21 161/66 (97) 95 820/20 19:00 20 161/66 Mechanical Ventilator 50 820/20 18:31 98.5 8/20/20 18:30 83 16 180/86 (117) 95 820/20 18:01 168/70 820/20 18:00 21 164/67 Mechanical Ventilator 50 820/20 18:00 78 21 164/67 (99) 94 8/20/20 17:30 85 23 168/79 (108) 93 8/20/20 17:00 16 168/70 Mechanical Ventilator 50 820/20 17:00 80 24 177/72 (107) 91 820/20 16:37 73 34 50 8/20/20 16:30 98.3 79 23 163/62 (95) 92 10/03/19 16:00 Mechanical Ventilator Mechanical Ventilator 10/03/19 16:00 45 10/03/19 16:00 20 159/63 Mechanical Ventilator 50 10/03/19 16:00 74 20 154/64 (94) 94 10/03/19 16:00 81 10/03/19 15:30 74 20 157/61 (93) 96 10/03/19 15:14 71 34 45 10/03/19 15:00 71 22 168/64 (98) 96 10/03/19 15:00 19 168/64 Mechanical Ventilator 50 10/03/19 14:30 34 168/64 Mechanical Ventilator 10.0 50 10/03/19 14:29 20 159/61 Mechanical Ventilator 50 10/03/19 14:00 20 151/57 Mechanical Ventilator 50 10/03/19 14:00 72 20 151/57 (88) 95 10/03/19 13:09 69 162/63 I&O Intake and Output 10/03/19 10/04/19 19:00 07:00 Intake Total 1471.50 ml 1050 ml Output Total 330 ml 410 ml Balance 1141.50 ml 640 ml Intake Free Water 90 ml IV Total 901.50 ml 480 ml Tube Feeding 480 ml 480 ml Other 90 ml Output Urine Total 330 ml 410 ml # Bowel Movements 1 Dressing: other Wound: other Cardiovascular: RSR Respiratory: decreased breath sounds Abdomen: soft, non-tender, present bowel sounds Extremities: no tenderness, no cyanosis, pulses Laboratory Tests Test 10/04/19 05:43 White Blood Count 6.1 K/UL (4.8-10.8) Red Blood Count 2.95 M/UL (4.20-5.40) L Hemoglobin 9.0 G/DL (12.0-16.0) L Hematocrit 28.3 % (37.0-47.0) L Mean Corpuscular Volume 96 FL (80-99) Mean Corpuscular Hemoglobin 30.4 PG (27.0-31.0) Mean Corpuscular Hemoglobin Concent 31.7 G/DL (32.0-36.0) L Red Cell Distribution Width 14.2 % (11.6-14.8) Platelet Count 354 K/UL (150-450) Mean Platelet Volume 5.6 FL (6.5-10.1) L Neutrophils (%) (Auto) 62.5 % (45.0-75.0) Lymphocytes (%) (Auto) 22.6 % (20.0-45.0) Monocytes (%) (Auto) 8.3 % (1.0-10.0) Eosinophils (%) (Auto) 5.1 % (0.0-3.0) H Basophils (%) (Auto) 1.5 % (0.0-2.0) Sodium Level 140 MMOL/L (136-145) Potassium Level 3.1 MMOL/L (3.5-5.1) L Chloride Level 103 MMOL/L (98-107) Carbon Dioxide Level 28 MMOL/L (21-32) Anion Gap 10 mmol/L (5-15) Blood Urea Nitrogen 67 mg/dL (7-18) H Creatinine 2.2 MG/DL (0.55-1.30) H Estimat Glomerular Filtration Rate 23.9 mL/min (>60) Glucose Level 94 MG/DL (74-106) Uric Acid 5.7 MG/DL (2.6-7.2) Calcium Level 8.5 MG/DL (8.5-10.1) Phosphorus Level 4.8 MG/DL (2.5-4.9) Magnesium Level 2.5 MG/DL (1.8-2.4) H Total Bilirubin 0.2 MG/DL (0.2-1.0) Aspartate Amino Transf (AST/SGOT) 23 U/L (15-37) Alanine Aminotransferase (ALT/SGPT) 7 U/L (12-78) L Alkaline Phosphatase 147 U/L (46-116) H C-Reactive Protein, Quantitative 9.4 mg/dL (0.00-0.90) H Total Protein 6.5 G/DL (6.4-8.2) Albumin 1.7 G/DL (3.4-5.0) L Globulin 4.8 g/dL Albumin/Globulin Ratio 0.4 (1.0-2.7) L Plan Problems: (1) Anemia (2) Proteinuria (3) UTI (urinary tract infection) (4) ARF (acute renal failure) (5) ACS (acute coronary syndrome) (6) Respiratory failure, acute and chronic (7) HCAP (healthcare-associated pneumonia) (8) Abrasion of lip, initial encounter (9) COPD with exacerbation (10) Hypokalemia (11) Sepsis Assessment & Plan: Leukocytosis, anemia, abnormal labs. Renal insufficiency potentially dehydrated Abnormal LFTs alk phos elevated Urine noted significant bacteria likely UTI etiology Wound stable still requiring local care IV antibiotics per infectious disease Discussed with chief counsel Dr. Berkowitz air mattress turn q2h nutritional tf will follow with recs thank you CT noted pending VQ scan - noted poor study low prob PE work respiratory increasing needs sedation weaning vent settings 80% peep 10 now comfortable Hd line in receiving HD plan for left thora 09/26 (12) Chronic respiratory failure (13) Ascites (14) Bacteremia (15) Hypernatremia (16) Pleural effusion (17) Pacemaker (18) Aortic dissection, thoracic (19) Tracheostomy in place Assessment & Plan: trach stable no bleeding currently likely tongue etiology of mild oozing currently hemostatic without trauma (20) Feeding by G-tube Assessment & Plan: okay to resume tube feeds via g tube patent and functional dressings okay DAILY ESTIMATED NEEDS: Needs based on Pulmonary, wound 49kg 30-35 kcals/kg 2670-0755 total kcals 1.25-2 g protein/kg 61-98 g total protein Fluid per MD NUTRITION DIAGNOSIS: * Swallowing difficulty R/T dysphagia, respiratory status as evidenced by vent dep via T-collar, GT Dep. (CURRENT TF: Nepro @45ml/hr x 24 hrs) ENTERAL NUTRITION RECOMMENDATIONS: Nepro @ 40ml/hr x 24 hrs to provide 960ml, 1728kcal, 78g prot, 698ml free water * Rec LOWER current rate to 40ml/hr for 24 hrs run. * Water flush of 100ml q 6 hrs per orders * HOB over 30 degrees ADDITIONAL RECOMMENDATIONS: * Per SNF: HT=63", UR=[id number] -> rec calibrated bedscale wt * Pt on Nepro HOT MOLDER, possible h/o electrolyte imbalance -> monitor lytes closely (K low at this time) * DIETARY SERVICES MANAGER eval for oral grat if appropriate * F/up w/ WC eval-> add FRANKLIN in 4oz H20 BID via GT (21) JAVIER (acute kidney injury) (22) Elevated alkaline phosphatase level Assessment & Plan: noted on labs trend US ordered will follow with recs thank you (23) Acute encephalopathy (24) GT CLOGGED (25) Sacral decubitus ulcer, stage IV Assessment & Plan: Pt presented on admission with Full thickness stage 4 Sacral Pressure injury which extends into R gluteal cheek. Base of wound is granular with bone exposure at base of sacrococcygeal.(L)10.5cm x (W06.5cm x (D) 2.8cm , undermining 11-3 by 3.6cm @12 o'clock. small amt serosanguineous exudate noted . Lavalette epithelial along edges bordered by darker skin tone without erythema. Resolving Pressure injury L ischium. Base of wound is 95% pink epithelial ,5% noni at center base of wound. No exudate noted. Both heels are boggy with non-Blanching erythema. Tx.plan: Cleanse Sacral wound with Saline. Loosely pack with Hydrogel impregnated Kerlix. Apply Moisture Barrier Periwound. Cover with Optifoam drsg Daily and prn. Apply Moisture Barrier paste to L Ischium. Cover with Optifoam drsg. Changee very 3 days and prn. Apply Cavilon Skin Barrier to both heels. Cover each heel with Optifoam drsgs. Change every 7 days and prn. Reposition at least every 2hours or as tolerated. Off-load heels with pillow. APM/JENNIFER Mattress overlay. Lane Saavedra Oct 04, 2019 13:02
--- NOTE | 2019-10-04 13:24 | Nephrology Progress Note ---
Assessment/Plan Problem List: (1) JAVIER (acute kidney injury) (2) Renal failure (ARF), acute on chronic (3) Dehydration (4) Electrolyte imbalance (5) Anemia (6) Respiratory failure, acute and chronic (7) COPD with exacerbation Assessment Patient is presented with sepsis and pneumonia and UTI Patient has acute renal failure, possible underlying chronic kidney failure Severe anemia Electrolyte imbalances: Hyponatremia, hypo-kalemia Chronic respiratory failure, COPD exacerbation Plan October 03: Lab reviewed. Zestril added to BP medication. 1 dose of Seroquel ordered for agitation. Continue to monitor renal parameters. Continue per consultants. October 02: Lab reviewed. Potassium supplement IV given. 3% saline 250 cc ordered. Responded well to Zaroxolyn yesterday. Will continue to monitor electrolytes and renal parameters. Will increase minoxidil to 2.5 mg every 6 hours. October 01: Labs reviewed. Potassium supplement given. Last dialysis September 29. Serum creatinine rising gradually. Urine output very low. Patient appears to continue to need dialysis at least twice a week. Blood pressure still running high I will switch the hydralazine to minoxidil. We will give 1 dose of Zaroxolyn 10 mg today. Will check renal parameters tomorrow. September 30: Patient dialyzed yesterday. 3 L removed. Labs reviewed. Potassium supplement given. Continue per consultants. It appears that the patient required dialysis 2-3 times a week. September 29: Lab reviewed. Chest x-ray result noted. Continues to have pulmonary congestion. Urine output low. Will attempt dialysis again today with ultrafiltration. September 28: Lab reviewed. ABG reviewed. Potassium supplement given. No dialysis at this point. Will eval patient status and renal parameters daily. September 27: Lab reviewed. Last dialysis September 25. Continue to monitor renal parameters. Hemodialysis as needed. September 26: Lab reviewed. Dialyzed yesterday. Potassium supplement given. Medication list reviewed. Will observe renal parameters and arrange for dialysis as needed. September 25: Lab reviewed. Currently on hemodialysis. Tolerating well. Stable from renal standpoint of view. Blood pressure medication adjusted by increasing hydralazine. September 24: Lab reviewed. ABG reviewed. Both lab and ABG much improved. Patient was dialyzed yesterday. We will attempt dialysis tomorrow again. Will adjust that blood pressure medication dosages. September 23: Lab reviewed. ABG reviewed. Patient acidotic. IV bicarb 1 dose is given. Patient has dialysis catheter. Will order dialysis for ultrafiltration and correction of acid-base. Discussed with ERASMO Mohr. September 22: Labs reviewed. Potassium high. Kayexalate and Reglan given. Will discuss with the consultants regarding initiation of dialysis. September 21: Patient is being sedated. Labs reviewed. Potassium supplement discontinued. GFR 20. Continue per current treatment plan. Dialysis and ultrafiltration is a consideration. September 20: Patient periodically agitated. Labs reviewed. Creatinine 2.4. Medication reviewed. Continue per consultants. Calculated creatinine clearance 21. May need isolated ultrafiltration on dialysis. Will discuss with PMD. Meanwhile hemoglobin is lower, defer transfusion to PMD. September 19: DC IV fluid. Zaroxolyn via GT tube. Potassium supplement. Attempt to diurese. Chest CT as bilateral pleural effusion. If diuresis unsuccessful, will consider dialysis and ultrafiltration. September 18: Potassium supplement IV given. Hemoglobin stable. Patient remains full code. Continue per consultants. Previously: Potassium supplement IV Slow IV hydration Epogen subcu Adjust blood pressure medication IV fluid, rate adjusted Norman catheter, intake and output Monitor renal parameters Avoid nephrotoxic's Antibiotics Per orders 2D echocardiogram Kidney ultrasound Subjective ROS Limited/Unobtainable: Yes Objective Objective Last 24 Hour Vital Signs Date Time Temp Pulse Resp B/P (MAP) Pulse Ox O2 Delivery O2 Flow Rate FiO2 10/04/19 13:09 110 36 100 Mechanical Ventilator 50 85 20 40 10/04/19 12:57 85 159/67 10/04/19 12:11 159/67 10/04/19 11:06 85 20 50 10/04/19 11:00 20 159/67 Mechanical Ventilator 50 10/04/19 11:00 87 20 159/67 (97) 97 10/04/19 10:45 24 175/68 Mechanical Ventilator 50.0 50 10/04/19 10:44 21 170/60 Mechanical Ventilator 50 10/04/19 10:30 93 19 176/69 (104) 98 10/04/19 10:00 114 31 180/79 (112) 95 10/04/19 10:00 20 159/67 Mechanical Ventilator 50 10/04/19 09:45 20 159/67 Mechanical Ventilator 50 10/04/19 09:30 88 20 154/65 (94) 97 10/04/19 09:30 21 154/65 Mechanical Ventilator 50 10/04/19 09:15 20 156/62 Mechanical Ventilator 50 10/04/19 09:04 175/68 10/04/19 09:00 94 20 172/68 (102) 97 10/04/19 09:00 21 172/68 Mechanical Ventilator 50 10/04/19 08:57 84 149/62 10/04/19 08:47 105 24 50 10/04/19 08:45 21 172/68 Mechanical Ventilator 50 10/04/19 08:30 21 178/68 Mechanical Ventilator 50 10/04/19 08:30 90 19 176/68 (104) 98 10/04/19 08:15 21 176/68 Mechanical Ventilator 50 10/04/19 08:00 75 10/04/19 08:00 50 10/04/19 08:00 Mechanical Ventilator Mechanical Ventilator 10/04/19 08:00 98.4 94 20 182/78 (112) 97 10/04/19 08:00 20 182/78 Mechanical Ventilator 50 10/04/19 07:30 99 21 194/88 (123) 93 10/04/19 07:09 84 20 99 Mechanical Ventilator 50 89 22 50 10/04/19 07:00 89 21 181/71 (107) 97 10/04/19 07:00 20 181/71 Mechanical Ventilator 50 10/04/19 06:30 72 19 149/62 (91) 97 10/04/19 06:00 21 148/62 Endotracheal Tube 50 10/04/19 06:00 77 19 148/62 (90) 97 10/04/19 05:42 143/61 10/04/19 05:42 75 143/61 10/04/19 05:30 76 20 143/61 (88) 97 10/04/19 05:15 78 21 50 10/04/19 05:00 77 20 155/63 (93) 97 10/04/19 05:00 21 155/63 Simple Mask 50.0 50 10/04/19 05:00 20 163/64 Mechanical Ventilator 50 10/04/19 04:30 86 20 164/68 (100) 99 10/04/19 04:00 81 20 163/64 (97) 99 10/04/19 04:00 79 10/04/19 04:00 Mechanical Ventilator Mechanical Ventilator 10/04/19 04:00 20 163/44 Mechanical Ventilator 10/04/19 04:00 50 10/04/19 03:30 83 18 163/64 (97) 96 10/04/19 03:19 74 33 50 10/04/19 03:00 79 22 173/65 (101) 98 10/04/19 03:00 20 173/65 Mechanical Ventilator 50 10/04/19 02:59 165/60 10/04/19 02:30 74 20 162/60 (94) 97 10/04/19 02:00 75 22 152/58 (89) 95 10/04/19 02:00 20 152/58 Mechanical Ventilator 50 10/04/19 01:30 71 20 169/63 (98) 95 10/04/19 01:18 72 20 100 Mechanical Ventilator 50 74 20 50 10/04/19 01:00 72 20 158/62 (94) 98 10/04/19 01:00 20 158/62 Mechanical Ventilator 50 10/04/19 00:38 20 159/61 Mechanical Ventilator 50 10/04/19 00:35 159/61 10/04/19 00:30 73 20 159/61 (93) 98 10/04/19 00:00 99.0 72 20 153/61 (91) 98 10/04/19 00:00 20 153/61 Mechanical Ventilator 50 10/04/19 00:00 82 10/04/19 00:00 Mechanical Ventilator Mechanical Ventilator 10/03/19 23:30 72 20 145/58 (87) 97 10/03/19 23:23 73 20 50 10/03/19 23:00 73 21 169/57 (94) 96 10/03/19 23:00 20 168/67 Mechanical Ventilator 50 10/03/19 22:30 68 21 150/61 (90) 95 10/03/19 22:00 20 168/67 Mechanical Ventilator 50 10/03/19 22:00 69 19 168/67 (100) 95 10/03/19 21:49 72 163/61 10/03/19 21:30 71 19 163/61 (95) 96 10/03/19 21:07 77 23 50 10/03/19 21:00 20 156/62 Mechanical Ventilator 50 10/03/19 21:00 73 20 156/62 (93) 95 10/03/19 20:40 78 163/60 10/03/19 20:30 77 19 163/60 (94) 96 10/03/19 20:00 20 149/57 Mechanical Ventilator 50 10/03/19 20:00 Mechanical Ventilator Mechanical Ventilator 10/03/19 20:00 98.8 76 18 149/57 (87) 93 10/03/19 20:00 50 10/03/19 20:00 79 8 19:30 75 23 156/59 (91) 93 10/03/19 19:08 74 22 100 Mechanical Ventilator 50 75 20 50 10/03/19 19:00 73 21 161/66 (97) 95 10/03/19 19:00 20 161/66 Mechanical Ventilator 50 10/03/19 18:31 98.5 10/03/19 18:30 83 16 180/86 (117) 95 10/03/19 18:01 168/70 10/03/19 18:00 21 164/67 Mechanical Ventilator 50 10/03/19 18:00 78 21 164/67 (99) 94 10/03/19 17:30 85 23 168/79 (108) 93 10/03/19 17:00 16 168/70 Mechanical Ventilator 50 10/03/19 17:00 80 24 177/72 (107) 91 10/03/19 16:37 73 34 50 10/03/19 16:30 98.3 79 23 163/62 (95) 92 10/03/19 16:00 Mechanical Ventilator Mechanical Ventilator 10/03/19 16:00 45 10/03/19 16:00 20 159/63 Mechanical Ventilator 50 10/03/19 16:00 74 20 154/64 (94) 94 10/03/19 16:00 81 10/03/19 15:30 74 20 157/61 (93) 96 10/03/19 15:14 71 34 45 10/03/19 15:00 71 22 168/64 (98) 96 10/03/19 15:00 19 168/64 Mechanical Ventilator 50 10/03/19 14:30 34 168/64 Mechanical Ventilator 10.0 50 10/03/19 14:29 20 159/61 Mechanical Ventilator 50 10/03/19 14:00 20 151/57 Mechanical Ventilator 50 10/03/19 14:00 72 20 151/57 (88) 95 Intake and Output 10/03/19 10/04/19 19:00 07:00 Intake Total 1471.50 ml 1050 ml Output Total 330 ml 410 ml Balance 1141.50 ml 640 ml Intake Free Water 90 ml IV Total 901.50 ml 480 ml Tube Feeding 480 ml 480 ml Other 90 ml Output Urine Total 330 ml 410 ml # Bowel Movements 1 Laboratory Tests 10/04/19 05:43: White Blood Count 6.1, Red Blood Count 2.95L, Hemoglobin 9.0L, Hematocrit 28.3L , Mean Corpuscular Volume 96, Mean Corpuscular Hemoglobin 30.4, Mean Corpuscular Hemoglobin Concent 31.7L, Red Cell Distribution Width 14.2, Platelet Count 354, Mean Platelet Volume 5.6L, Neutrophils (%) (Auto) 62.5, Lymphocytes (%) (Auto) 22.6, Monocytes (%) (Auto) 8.3, Eosinophils (%) (Auto) 5.1H, Basophils (%) (Auto) 1.5, Sodium Level 140, Potassium Level 3.1L, Chloride Level 103, Carbon Dioxide Level 28, Anion Gap 10, Blood Urea Nitrogen 67H, Creatinine 2.2H, Estimat Glomerular Filtration Rate 23.9, Glucose Level 94 , Uric Acid 5.7, Calcium Level 8.5, Phosphorus Level 4.8, Magnesium Level 2.5H, Total Bilirubin 0.2, Aspartate Amino Transf (AST/SGOT) 23, Alanine Aminotransferase (ALT/SGPT) 7L, Alkaline Phosphatase 147H, C-Reactive Protein, Quantitative 9.4H, Total Protein 6.5, Albumin 1.7L, Globulin 4.8, Albumin/ Globulin Ratio 0.4L Height (Feet): 5 Height (Inches): 5.00 Weight (Pounds): 135 General Appearance: mild distress, agitated Cardiovascular: normal rate Respiratory/Chest: decreased breath sounds Abdomen: distended Objective No change Johnny Houston MD Oct 04, 2019 13:24
[2019-10-04] MEDS: Lisinopril 10mg tab GT SCH (14:47)
[2019-10-04] MEDS: Haloperidol 5mg/ml Inj IM PRN ×2 (15:40→16:00)
[2019-10-04] MEDS: dilTIAZem HCl 60mg tab GT SCH ×2 (17:32→23:49)
[2019-10-04] MEDS ORDERED: dilTIAZem HCl 30mg tab GT SCH (18:00)
[2019-10-04] MEDS ORDERED: dilTIAZem HCl 60mg tab GT SCH (18:00)
[2019-10-04] MEDS: Metoprolol Tartrate 50mg tab GT SCH (20:13)
[2019-10-04] MEDS: Dyna-Hex 2% Top Sol 2oz TOPIC SCH (20:13)
[2019-10-04] MEDS: Sertraline 100mg tab GT SCH (20:13)
[2019-10-04] MEDS: Miralax 17gm pkt ORAL SCH (20:14)
[2019-10-04] MEDS: Epoetin Alfa-EPBX(ESRD on dialysis)10,000 unit/ml vial SUBQ SCH (20:59)
[2019-10-05] VITALS (48 sets, daily range): BP systolic 92–148; BP diastolic 35–93
[2019-10-05] MEDS: Albuterol/Ipratropium 3ml neb HHN SCH ×4 (01:26→19:49)
--- NOTE | 2019-10-05 02:30 | Consultation ---
DATE OF CONSULTATION: 10/04/2019 CONSULTING PHYSICIAN: Shanda Linares M.D. HISTORY OF PRESENT ILLNESS: The patient is a 49-year-old male with a history of multiple medical issues including chronic obstructive pulmonary disease, chronic respiratory failure, atrial fibrillation, hypertension, and schizophrenia who was admitted to the hospital due to shortness of breath and chest pain. The patient now is in intensive care unit, is agitated, attempting to come out of bed, difficulty to manage receiving Ativan. The patient was given Zyprexa as needed and Seroquel today twice, which has not been effective. PAST PSYCHIATRIC HISTORY: Schizophrenia. PAST MEDICAL HISTORY: As above. ALLERGIES: No known drug allergies. SUBSTANCE ABUSE HISTORY: No known history of illicit drug use or alcohol. MENTAL STATUS EXAMINATION: The patient is awake, disoriented. Mood is agitated. Affect is flat. Thought process is concrete. Thought content, no suicidal or homicidal ideation. Cognition is impaired. Insight and judgment are impaired. ASSESSMENT: AXIS I: Acute encephalopathy. Schizophrenia. AXIS II: Deferred. AXIS III: As above. AXIS IV: Low. AXIS V: 20. PLAN: 1. We will start the patient on risperidone 2 mg at bedtime. 2. Haldol IM. The patient improved after 1 dose and restraints was stopped at nighttime. 3. Continue to follow and readjust the medications. Shanda Linares M.D. DR: BEST JOB#: [id number] CC: JAIR
[2019-10-05] MEDS: traMADol 50mg tab GT SCH ×4 (02:50→20:38)
[2019-10-05 05:28] LABS: BASOPHILS % (AUTO) 1.7 % (0.0-2.0); EOSINOPHILS % (AUTO) 3.7 % (0.0-3.0); HEMATOCRIT 26.6 % (37.0-47.0); HEMOGLOBIN 8.4 G/DL (12.0-16.0); LYMPHOCYTES % (AUTO) 27.7 % (20.0-45.0); MEAN CORPUSCULAR VOLUME 97 FL (80-99); MONOCYTES % (AUTO) 8.1 % (1.0-10.0); NEUTROPHILS % (AUTO) 58.8 % (45.0-75.0); PLATELET COUNT 377 K/UL (150-450); RED BLOOD COUNT 2.74 M/UL (4.20-5.40); RED CELL DISTRIBUTION WIDTH 14.4 % (11.6-14.8)
[2019-10-05] MEDS: dilTIAZem HCl 60mg tab GT SCH ×4 (05:45→23:53)
[2019-10-05] MEDS: Minoxidil 2.5mg tab GT SCH (05:45)
[2019-10-05] MEDS: Metoclopramide 10mg/2ml Inj IVP SCH ×3 (05:50→21:54)
[2019-10-05 05:56] LABS: ALANINE AMINOTRANSFERASE 7 U/L (12-78); ALBUMIN 1.5 G/DL (3.4-5.0); ALBUMIN/GLOBULIN RATIO 0.3 (1.0-2.7); ALKALINE PHOSPHATASE 126 U/L (46-116); ANION GAP 9 mmol/L (5-15); ASPARTATE AMINO TRANSFERASE 21 U/L (15-37); BILIRUBIN,TOTAL 0.3 MG/DL (0.2-1.0); BLOOD UREA NITROGEN 70 mg/dL (7-18); CALCIUM 8.6 MG/DL (8.5-10.1); CARBON DIOXIDE 27 MMOL/L (21-32); CHLORIDE 105 MMOL/L (98-107); CREATININE 2.7 MG/DL (0.55-1.30); PHOSPHORUS 4.6 MG/DL (2.5-4.9); POTASSIUM 3.9 MMOL/L (3.5-5.1); SODIUM 141 MMOL/L (136-145)
[2019-10-05] MEDS: fentaNYL 2500mcg/NS 250ml 250 ML IV SCH ×2 (06:21→20:41)
--- NOTE | 2019-10-05 06:42 | General Progress Note ---
Assessment/Plan Problem List: (1) S/P aortic dissection repair ICD Codes: Z98.890 - Other specified postprocedural states SNOMED: 482881042, 027260494 (2) Sacral decubitus ulcer, stage IV ICD Codes: L89.154 - Pressure ulcer of sacral region, stage 4 SNOMED: 523718410, 786080693 (3) Anemia ICD Codes: D64.9 - Anemia, unspecified SNOMED: 003885565 (4) GT CLOGGED (5) Feeding by G-tube ICD Codes: Z93.1 - Gastrostomy status SNOMED: 013841143, 374428457 (6) Tracheostomy in place ICD Codes: Z93.0 - Tracheostomy status SNOMED: 947197705 (7) Pacemaker ICD Codes: Z95.0 - Presence of cardiac pacemaker SNOMED: 648637711 (8) Chronic respiratory failure ICD Codes: J96.10 - Chronic respiratory failure, unspecified whether with hypoxia or hypercapnia SNOMED: 33822073 Assessment/Plan: GTF monitor for residuals repeat labs ICU care on lactulose Subjective ROS Limited/Unobtainable: No Allergies: Coded Allergies: No Known Allergies (Unverified , 10/10/17) Objective Last 24 Hour Vital Signs Date Time Temp Pulse Resp B/P (MAP) Pulse Ox O2 Delivery O2 Flow Rate FiO2 10/05/19 06:30 63 20 97/42 (60) 94 10/05/19 06:21 20 97/39 Mechanical Ventilator 50.0 100 10/05/19 06:00 62 20 99/45 (63) 94 10/05/19 05:45 63 97/39 10/05/19 05:45 97/39 10/05/19 05:30 62 20 95/38 (57) 93 10/05/19 05:00 63 20 97/39 (58) 91 10/05/19 05:00 20 97/39 Mechanical Ventilator 100 10/05/19 04:30 63 20 103/45 (64) 94 10/05/19 04:30 20 92/43 Mechanical Ventilator 80 10/05/19 04:15 20 92/43 Mechanical Ventilator 80 10/05/19 04:00 80 10/05/19 04:00 62 10/05/19 04:00 Mechanical Ventilator Mechanical Ventilator 10/05/19 04:00 20 92/43 Mechanical Ventilator 80 8/22/20 04:00 98.4 62 20 92/43 (59) 95 10/05/19 03:30 62 18 109/43 (65) 97 10/05/19 03:29 62 20 100 10/05/19 03:20 98.2 10/05/19 03:00 62 20 100/43 (62) 98 10/05/19 03:00 21 100/43 Mechanical Ventilator 100 10/05/19 02:30 63 20 105/44 (64) 98 10/05/19 02:00 20 97/45 Mechanical Ventilator 100 10/05/19 02:00 66 20 97/45 (62) 94 10/05/19 01:30 62 20 93/41 (58) 95 10/05/19 01:27 61 20 100 Mechanical Ventilator 100 62 20 40 10/05/19 01:00 20 96/41 Mechanical Ventilator 100 10/05/19 01:00 60 20 96/41 (59) 95 10/05/19 00:30 61 20 106/44 (64) 98 10/05/19 00:00 65 10/05/19 00:00 98.2 67 20 132/55 (80) 100 10/05/19 00:00 21 132/55 Mechanical Ventilator 100 10/05/19 00:00 Mechanical Ventilator Mechanical Ventilator 10/04/19 23:49 67 185/73 10/04/19 23:49 180/73 10/04/19 23:48 69 20 100 10/04/19 23:35 72 21 185/73 (110) 98 10/04/19 23:30 71 21 188/82 (117) 96 10/04/19 23:00 60 20 127/74 (91) 97 10/04/19 23:00 21 188/82 Mechanical Ventilator 100 10/04/19 22:30 60 20 115/51 (72) 96 10/04/19 22:00 60 20 105/45 (65) 96 10/04/19 22:00 20 105/45 Mechanical Ventilator 100 10/04/19 21:30 61 20 104/44 (64) 96 10/04/19 21:00 63 20 107/44 (65) 93 10/04/19 21:00 20 107/44 Mechanical Ventilator 100 10/04/19 20:30 71 20 120/47 (71) 97 10/04/19 20:13 92 143/66 10/04/19 20:13 20 140/60 Mechanical Ventilator 50.0 100 10/04/19 20:12 20 140/60 Mechanical Ventilator 100 10/04/19 20:00 86 10/04/19 20:00 Mechanical Ventilator Mechanical Ventilator 10/04/19 20:00 100 10/04/19 20:00 20 140/60 Mechanical Ventilator 100 10/04/19 20:00 78 20 140/60 (86) 99 10/04/19 20:00 99.0 78 20 140/60 (86) 99 10/04/19 19:49 92 28 95 Mechanical Ventilator 100 84 20 40 10/04/19 19:30 78 20 143/66 (91) 98 10/04/19 19:00 23 155/94 Mechanical Ventilator 50 10/04/19 19:00 86 19 155/94 (114) 99 10/04/19 18:30 74 19 115/46 (69) 96 10/04/19 18:00 20 130/75 Mechanical Ventilator 50 10/04/19 18:00 78 20 130/50 (76) 10/04/19 17:32 102 185/69 10/04/19 17:32 185/69 10/04/19 17:30 88 21 130/85 (100) 98 10/04/19 17:24 103 24 100 10/04/19 17:18 99 22 175/76 (109) 94 10/04/19 17:00 113 23 190/82 (118) 91 10/04/19 17:00 23 175/76 Mechanical Ventilator 50 10/04/19 16:35 102 21 185/69 (107) 93 10/04/19 16:30 119 35 219/73 (121) 90 10/04/19 16:00 99.0 87 21 136/58 (84) 90 10/04/19 16:00 50 10/04/19 16:00 20 136/58 Non-Rebreather 50 10/04/19 16:00 86 10/04/19 16:00 Mechanical Ventilator Mechanical Ventilator 10/04/19 15:30 101 22 189/71 (110) 94 10/04/19 15:00 21 188/69 Mechanical Ventilator 50 10/04/19 15:00 96 24 181/81 (114) 90 10/04/19 14:48 105 22 50 10/04/19 14:47 159/69 10/04/19 14:30 96 18 172/68 (102) 94 10/04/19 14:00 102 22 196/77 (116) 93 10/04/19 14:00 21 196/77 Mechanical Ventilator 50 10/04/19 13:30 98 19 189/82 (117) 92 10/04/19 13:09 110 36 100 Mechanical Ventilator 50 85 20 40 10/04/19 13:00 22 182/82 Mechanical Ventilator 50 10/04/19 13:00 83 17 159/69 (99) 98 10/04/19 12:57 85 159/67 10/04/19 12:30 85 21 147/68 (94) 92 10/04/19 12:11 25 147/68 Mechanical Ventilator 50 10/04/19 12:11 159/67 10/04/19 12:00 94 10/04/19 12:00 21 182/69 Mechanical Ventilator 50 10/04/19 12:00 98.5 100 27 182/69 (106) 91 10/04/19 12:00 Mechanical Ventilator Mechanical Ventilator 10/04/19 12:00 50 10/04/19 11:30 99 20 197/88 (124) 96 10/04/19 11:06 85 20 50 10/04/19 11:00 20 159/67 Mechanical Ventilator 50 10/04/19 11:00 87 20 159/67 (97) 97 10/04/19 10:45 24 175/68 Mechanical Ventilator 50.0 50 10/04/19 10:44 21 170/60 Mechanical Ventilator 50 10/04/19 10:30 93 19 176/69 (104) 98 10/04/19 10:00 114 31 180/79 (112) 95 10/04/19 10:00 20 159/67 Mechanical Ventilator 50 10/04/19 09:45 20 159/67 Mechanical Ventilator 50 10/04/19 09:30 88 20 154/65 (94) 97 10/04/19 09:30 21 154/65 Mechanical Ventilator 50 10/04/19 09:15 20 156/62 Mechanical Ventilator 50 10/04/19 09:04 175/68 10/04/19 09:00 94 20 172/68 (102) 97 10/04/19 09:00 21 172/68 Mechanical Ventilator 50 10/04/19 08:57 84 149/62 10/04/19 08:47 105 24 50 10/04/19 08:45 21 172/68 Mechanical Ventilator 50 10/04/19 08:30 21 178/68 Mechanical Ventilator 50 10/04/19 08:30 90 19 176/68 (104) 98 10/04/19 08:15 21 176/68 Mechanical Ventilator 50 10/04/19 08:00 75 10/04/19 08:00 50 10/04/19 08:00 Mechanical Ventilator Mechanical Ventilator 10/04/19 08:00 98.4 94 20 182/78 (112) 97 10/04/19 08:00 20 182/78 Mechanical Ventilator 50 10/04/19 07:30 99 21 194/88 (123) 93 10/04/19 07:09 84 20 99 Mechanical Ventilator 50 89 22 50 10/04/19 07:00 89 21 181/71 (107) 97 10/04/19 07:00 20 181/71 Mechanical Ventilator 50 Intake and Output 10/04/19 10/05/19 19:00 07:00 Intake Total 1139.55 ml 1054.5 ml Output Total 310 ml 50 ml Balance 829.55 ml 1004.5 ml Intake Free Water 30 ml 100 ml IV Total 629.55 ml 274.5 ml Tube Feeding 480 ml 440 ml Other 240 ml Output Urine Total 310 ml 50 ml # Bowel Movements 3 Laboratory Tests 10/05/19 05:00: White Blood Count 7.0, Red Blood Count 2.74L, Hemoglobin 8.4L, Hematocrit 26.6L , Mean Corpuscular Volume 97, Mean Corpuscular Hemoglobin 30.7, Mean Corpuscular Hemoglobin Concent 31.6L, Red Cell Distribution Width 14.4, Platelet Count 377, Mean Platelet Volume 5.9L, Neutrophils (%) (Auto) 58.8, Lymphocytes (%) (Auto) 27.7, Monocytes (%) (Auto) 8.1, Eosinophils (%) (Auto) 3.7H, Basophils (%) (Auto) 1.7, Sodium Level 141, Potassium Level 3.9, Chloride Level 105, Carbon Dioxide Level 27, Anion Gap 9, Blood Urea Nitrogen 70H, Creatinine 2.7H, Estimat Glomerular Filtration Rate 18.9, Glucose Level 70L, Calcium Level 8.6, Phosphorus Level 4.6, Magnesium Level 2.7H, Total Bilirubin 0.3, Aspartate Amino Transf (AST/SGOT) 21, Alanine Aminotransferase (ALT/SGPT) 7L, Alkaline Phosphatase 126H, C-Reactive Protein, Quantitative 11.6H, Pro-B- Type Natriuretic Peptide > 05277R, Total Protein 5.9L, Albumin 1.5L, Globulin 4.4, Albumin/Globulin Ratio 0.3L Height (Feet): 5 Height (Inches): 5.00 Weight (Pounds): 140 General Appearance: no apparent distress EENT: normal ENT inspection Neck: supple Cardiovascular: normal rate Respiratory/Chest: decreased breath sounds Abdomen: normal bowel sounds, non tender, soft Extremities: non-tender Inder Mccauley MD Oct 05, 2019 06:42
[2019-10-05] MEDS ORDERED: Sterile Water Irrig 1000ml IRRIG ONE (08:28)
[2019-10-05] MEDS ORDERED: NS 275ml ONE (08:28)
[2019-10-05] MEDS ORDERED: Tubing IV Secondary IV ONE (08:28)
[2019-10-05] MEDS ORDERED: Minoxidil 2.5mg tab GT PRN (08:30)
--- NOTE | 2019-10-05 08:30 | Pulmonolgy Critical Care Note ---
Critical Care - Asmt/Plan Assessment/Plan: ASSESSMENT Acute on chronic hypoxemic respiratory failure ( trach dependent), now on vent Tracheostomy status, s/p change to cuffed trach Sepsis Pulmonary edema Pleural effusion -worsening left pl effusion s/p thoracentesis L pleural effusion 09/26 -900 ml Pneumonia with MDR Pseudomonas UTI CHF ? cardiorenal COPD Acute kidney injury and chronic kidney disease-requiring start of HD Hypertension Atrial fibrillation Moderate pulm HTN Moderate AR Dysphagia , feeding by G-tube Electrolyte abnormalities Anemia Toxic metabolic encephalopathy likely due to sepsis and ARF HTN PAF PLAN OF CARE ICU on vent AC trach changed 8/4 pm from uncuffed to cuffed Shiley#[address] chest w/out contrast: - Bilateral pleural effusions, right greater than left, with bilateral lower lobe consolidation or volume loss. -Ground-glass densities in the upper lobes bilaterally. This is not specific. -Tracheostomy. -Increased superior mediastinal density. Stability of adenopathy cannot be excluded. -Atherosclerotic change. -Gastrostomy. -Ascites. -Left renal stent with left hydronephrosis and renal atrophy. VQ scan -> low probability for PE worsening resp status was due to need for HD, now after HD started, resp status improving, down to PEEP 5 and AC 20 trach care , pulmonary toilet ABG this am on FiO2 45 % mild hypoxia, but pulse oximetry above 90% , keep as is and titrate Fio2 further down as tolerated fup with ABG and CXR in am Mucomyst was prior dc given lots of thin secretions, continue Duoneb prn rapid COVID 19 NGT x3 sedation with fentanyl gtt and Versed prn-> off Versed and on weaning from Fentanyl as tolerated unable to wean, gets agitated and anxious 10/03 night desaturated, apparently due to anxiety, Fio2 up to 100% again will get ABG and CXR psych eval appreciated, psych meds regimen s/p thoracentesis L pleural effusion 09/26 am -> 900 ml fluid analysis noted, unlikely empyema given small # of WBC fup with fluid cx ( apparently never sent despite orders) cytology -> NGT, no malignant cells aspiration precautions venous Duplex BLE -> NGT DVT prophylaxis pulm toilet, abx as per ID- s/p gent x 1, now on Vanco and Zerbaxa , completed 10/02 SCX 8/3 + Proteus, SCX 09/22 Pseudomonas MDR UCX 8/2 + Providencia , UCX 09/22 VRE 10-20 K only BCX / Staph epidermidis, BCX 09/15 NGT , BCX 09/22 and 09/26 - NGTD monitor volumes was on gentle IVF-> dc s/p prior diuretic-Lasix require initiation of HD close monitoring of volumes, renal parameters and lytes -per nephro recs HD as per nephro K replaced earlier this am ECHO with pEF , moderate pulm HTN and moderate AR BP management with current regimen of BB, Cardizem and Hydralazine, remains in SR monitor HH with goal to keep Hgb >7, heme on board on EPO supportive care pain management wound care bowel regimen psych eval Dr Linares pending s/p Seroquel x 1 by nephro thank you for a consult Critical Care - Objective Last 24 Hour Vital Signs Date Time Temp Pulse Resp B/P (MAP) Pulse Ox O2 Delivery O2 Flow Rate FiO2 10/05/19 07:24 63 20 98 Mechanical Ventilator 100 74 24 100 10/05/19 07:00 63 20 97/42 (60) 94 10/05/19 07:00 20 97/42 Mechanical Ventilator 100 10/05/19 06:30 63 20 97/42 (60) 94 10/05/19 06:21 20 97/39 Mechanical Ventilator 50.0 100 10/05/19 06:20 20 97/42 Mechanical Ventilator 100 10/05/19 06:00 62 20 99/45 (63) 94 10/05/19 06:00 20 97/42 Mechanical Ventilator 100 10/05/19 05:45 63 97/39 10/05/19 05:45 97/39 10/05/19 05:30 62 20 95/38 (57) 93 10/05/19 05:00 63 20 97/39 (58) 91 10/05/19 05:00 20 97/39 Mechanical Ventilator 100 10/05/19 04:30 63 20 103/45 (64) 94 10/05/19 04:30 20 92/43 Mechanical Ventilator 80 10/05/19 04:15 20 92/43 Mechanical Ventilator 80 10/05/19 04:00 80 10/05/19 04:00 62 10/05/19 04:00 Mechanical Ventilator Mechanical Ventilator 10/05/19 04:00 20 92/43 Mechanical Ventilator 80 10/05/19 04:00 98.4 62 20 92/43 (59) 95 10/05/19 03:30 62 18 109/43 (65) 97 10/05/19 03:29 62 20 100 10/05/19 03:20 98.2 10/05/19 03:00 62 20 100/43 (62) 98 10/05/19 03:00 21 100/43 Mechanical Ventilator 100 10/05/19 02:30 63 20 105/44 (64) 98 10/05/19 02:00 20 97/45 Mechanical Ventilator 100 10/05/19 02:00 66 20 97/45 (62) 94 10/05/19 01:30 62 20 93/41 (58) 95 10/05/19 01:27 61 20 100 Mechanical Ventilator 100 62 20 40 10/05/19 01:00 20 96/41 Mechanical Ventilator 100 10/05/19 01:00 60 20 96/41 (59) 95 10/05/19 00:30 61 20 106/44 (64) 98 10/05/19 00:00 65 10/05/19 00:00 98.2 67 20 132/55 (80) 100 10/05/19 00:00 21 132/55 Mechanical Ventilator 100 10/05/19 00:00 Mechanical Ventilator Mechanical Ventilator 10/04/19 23:49 67 185/73 10/04/19 23:49 180/73 10/04/19 23:48 69 20 100 10/04/19 23:35 72 21 185/73 (110) 98 10/04/19 23:30 71 21 188/82 (117) 96 10/04/19 23:00 60 20 127/74 (91) 97 10/04/19 23:00 21 188/82 Mechanical Ventilator 100 10/04/19 22:30 60 20 115/51 (72) 96 10/04/19 22:00 60 20 105/45 (65) 96 10/04/19 22:00 20 105/45 Mechanical Ventilator 100 10/04/19 21:30 61 20 104/44 (64) 96 10/04/19 21:00 63 20 107/44 (65) 93 10/04/19 21:00 20 107/44 Mechanical Ventilator 100 10/04/19 20:30 71 20 120/47 (71) 97 10/04/19 20:13 92 143/66 10/04/19 20:13 20 140/60 Mechanical Ventilator 50.0 100 10/04/19 20:12 20 140/60 Mechanical Ventilator 100 10/04/19 20:00 86 10/04/19 20:00 Mechanical Ventilator Mechanical Ventilator 10/04/19 20:00 100 10/04/19 20:00 20 140/60 Mechanical Ventilator 100 10/04/19 20:00 78 20 140/60 (86) 99 10/04/19 20:00 99.0 78 20 140/60 (86) 99 10/04/19 19:49 92 28 95 Mechanical Ventilator 100 84 20 40 10/04/19 19:30 78 20 143/66 (91) 98 10/04/19 19:00 23 155/94 Mechanical Ventilator 50 10/04/19 19:00 86 19 155/94 (114) 99 10/04/19 18:30 74 19 115/46 (69) 96 10/04/19 18:00 20 130/75 Mechanical Ventilator 50 10/04/19 18:00 78 20 130/50 (76) 10/04/19 17:32 102 185/69 10/04/19 17:32 185/69 10/04/19 17:30 88 21 130/85 (100) 98 10/04/19 17:24 103 24 100 10/04/19 17:18 99 22 175/76 (109) 94 10/04/19 17:00 113 23 190/82 (118) 91 10/04/19 17:00 23 175/76 Mechanical Ventilator 50 10/04/19 16:35 102 21 185/69 (107) 93 10/04/19 16:30 119 35 219/73 (121) 90 10/04/19 16:00 99.0 87 21 136/58 (84) 90 10/04/19 16:00 50 10/04/19 16:00 20 136/58 Non-Rebreather 50 10/04/19 16:00 86 10/04/19 16:00 Mechanical Ventilator Mechanical Ventilator 10/04/19 15:30 101 22 189/71 (110) 94 10/04/19 15:00 21 188/69 Mechanical Ventilator 50 10/04/19 15:00 96 24 181/81 (114) 90 10/04/19 14:48 105 22 50 10/04/19 14:47 159/69 10/04/19 14:30 96 18 172/68 (102) 94 10/04/19 14:00 102 22 196/77 (116) 93 10/04/19 14:00 21 196/77 Mechanical Ventilator 50 10/04/19 13:30 98 19 189/82 (117) 92 10/04/19 13:09 110 36 100 Mechanical Ventilator 40 85 20 40 10/04/19 13:00 22 182/82 Mechanical Ventilator 50 10/04/19 13:00 83 17 159/69 (99) 98 10/04/19 12:57 85 159/67 10/04/19 12:30 85 21 147/68 (94) 92 10/04/19 12:11 25 147/68 Mechanical Ventilator 50 10/04/19 12:11 159/67 10/04/19 12:00 94 10/04/19 12:00 21 182/69 Mechanical Ventilator 50 10/04/19 12:00 98.5 100 27 182/69 (106) 91 10/04/19 12:00 Mechanical Ventilator Mechanical Ventilator 10/04/19 12:00 50 10/04/19 11:30 99 20 197/88 (124) 96 10/04/19 11:06 85 20 50 10/04/19 11:00 20 159/67 Mechanical Ventilator 50 10/04/19 11:00 87 20 159/67 (97) 97 10/04/19 10:45 24 175/68 Mechanical Ventilator 50.0 50 10/04/19 10:44 21 170/60 Mechanical Ventilator 50 10/04/19 10:30 93 19 176/69 (104) 98 10/04/19 10:00 114 31 180/79 (112) 95 10/04/19 10:00 20 159/67 Mechanical Ventilator 50 10/04/19 09:45 20 159/67 Mechanical Ventilator 50 10/04/19 09:30 88 20 154/65 (94) 97 10/04/19 09:30 21 154/65 Mechanical Ventilator 50 10/04/19 09:15 20 156/62 Mechanical Ventilator 50 10/04/19 09:04 175/68 10/04/19 09:00 94 20 172/68 (102) 97 10/04/19 09:00 21 172/68 Mechanical Ventilator 50 10/04/19 08:57 84 149/62 10/04/19 08:47 105 24 50 10/04/19 08:45 21 172/68 Mechanical Ventilator 50 10/04/19 08:30 21 178/68 Mechanical Ventilator 50 10/04/19 08:30 90 19 176/68 (104) 98 Objective: General Appearance: no apparent distress, bedridden middle age chronically ill looking female on vent AC 500-20- 100%, PEEP 5, anxious, moving excessively Lines, tubes and drains: left jugular HD catheter HEENT: normocephalic, atraumatic, anicteric, trach - Shiley #7 cuffed XLT, secretions moderate amount, yellow color , thick consistency Respiratory/Chest: no accessory muscle use, few scattered rhonchi bilaterally , Cardiovascular/Chest: normal rate, regular rhythm - SR on tele Abdomen: normal bowel sounds, non tender, soft, G tube Genitourinary/Rectal: [place] Extremities: no edema Skin Exam: warm/dry, multiple tattoos all over the body Neurologic: abnormal gait, anxious, excessive body movement Musculoskeletal: atrophy - BLE Critical Care - Subjective ROS Limited/Unobtainable: Yes Interval Events: desaturated last night apparently due to anxiety FiO2 up to 100% again hypotensive with systolic below 100 on Fentanyl gtt down to 180 mcg/hr afebrile, no leukocytosis, completed Rx with abx for PNA seen and evaluated by psych, started on psych regimen Condition: critical IV Access: central - left jugular catheter intact EKG Rhythm: Sinus Rhythm FI02: 100 Vent Support Breath Rate: 20 Vent Support Mode: AC Vent Tidal Volume: 500 Sputum Amount: Small PEEP: 5.0 PIP: 21 Fluids: Fentanyl gtt 180 mcg/hr Tube Feeding Amount: 40 I&O: Intake and Output 10/04/19 10/05/19 19:00 07:00 Intake Total 1139.55 ml 1110.2 ml Output Total 310 ml 50 ml Balance 829.55 ml 1060.2 ml Intake Free Water 30 ml 100 ml IV Total 629.55 ml 290.2 ml Tube Feeding 480 ml 480 ml Other 240 ml Output Urine Total 310 ml 50 ml # Bowel Movements 3 CXR: 10/02 CXR -No significant change from prior examination. Yara Castro GENERAL TELLER Oct 05, 2019 08:30
[2019-10-05] MEDS: Lactulose 10gm/15ml UDC ORAL SCH ×3 (08:53→17:35)
[2019-10-05] MEDS: Metoprolol Tartrate 50mg tab GT SCH ×2 (08:54→20:39)
[2019-10-05] MEDS: Docusate 100mg/10ml Liq GT SCH ×3 (08:54→23:53)
[2019-10-05] MEDS: Lisinopril 10mg tab GT SCH (08:55)
[2019-10-05] MEDS: Heparin 5000 units/ml inj SUBQ SCH ×2 (08:58→20:39)
--- NOTE | 2019-10-05 10:45 | Diagnostic Imaging Report ---
EXAM: XR Chest, 1 View CLINICAL HISTORY: SOB TECHNIQUE: Frontal view of the chest. COMPARISON: Chest radiograph on 10/03/2019 FINDINGS: Hardware: Stable endotracheal tube and left-sided central venous catheter. Lungs/pleura: Slightly increased bilateral pleural effusions with associated atelectasis versus pneumonia. Slightly increased interstitial and hazy opacities in the lungs, concerning for pulmonary vasculature congestion and edema. Heart/mediastinum: Median sternotomy changes. Stable mild enlargement of the cardiac silhouette. Soft tissues: Unremarkable. Bones: No acute fracture. Upper abdomen: Nonspecific partially visualized bowel gas. IMPRESSION: 1. Stable endotracheal tube and left-sided central venous catheter. 2. Slightly increased bilateral pleural effusions with associated atelectasis versus pneumonia. Slightly increased interstitial and hazy opacities in the lungs, concerning for pulmonary vasculature congestion and edema.
--- NOTE | 2019-10-05 13:00 | Nephrology Progress Note ---
Assessment/Plan Problem List: (1) JAVIER (acute kidney injury) (2) Renal failure (ARF), acute on chronic (3) Dehydration (4) Electrolyte imbalance (5) Anemia (6) Respiratory failure, acute and chronic (7) COPD with exacerbation Assessment Patient is presented with sepsis and pneumonia and UTI Patient has acute renal failure, possible underlying chronic kidney failure Severe anemia Electrolyte imbalances: Hyponatremia, hypo-kalemia Chronic respiratory failure, COPD exacerbation Plan October 04: Lab reviewed. Blood pressure medication adjusted since the patient is hypotensive. Serum creatinine rising. Recheck labs tomorrow. Dialysis as needed. Discussed with RN. October 03: Lab reviewed. Zestril added to BP medication. 1 dose of Seroquel ordered for agitation. Continue to monitor renal parameters. Continue per consultants. October 02: Lab reviewed. Potassium supplement IV given. 3% saline 250 cc ordered. Responded well to Zaroxolyn yesterday. Will continue to monitor electrolytes and renal parameters. Will increase minoxidil to 2.5 mg every 6 hours. October 01: Labs reviewed. Potassium supplement given. Last dialysis September 29. Serum creatinine rising gradually. Urine output very low. Patient appears to continue to need dialysis at least twice a week. Blood pressure still running high I will switch the hydralazine to minoxidil. We will give 1 dose of Zaroxolyn 10 mg today. Will check renal parameters tomorrow. September 30: Patient dialyzed yesterday. 3 L removed. Labs reviewed. Potassium supplement given. Continue per consultants. It appears that the patient required dialysis 2-3 times a week. September 29: Lab reviewed. Chest x-ray result noted. Continues to have pulmonary congestion. Urine output low. Will attempt dialysis again today with ultrafiltration. September 28: Lab reviewed. ABG reviewed. Potassium supplement given. No dialysis at this point. Will eval patient status and renal parameters daily. September 27: Lab reviewed. Last dialysis September 25. Continue to monitor renal parameters. Hemodialysis as needed. September 26: Lab reviewed. Dialyzed yesterday. Potassium supplement given. Medication list reviewed. Will observe renal parameters and arrange for dialysis as needed. September 25: Lab reviewed. Currently on hemodialysis. Tolerating well. Stable from renal standpoint of view. Blood pressure medication adjusted by increasing hydralazine. September 24: Lab reviewed. ABG reviewed. Both lab and ABG much improved. Patient was dialyzed yesterday. We will attempt dialysis tomorrow again. Will adjust that blood pressure medication dosages. September 23: Lab reviewed. ABG reviewed. Patient acidotic. IV bicarb 1 dose is given. Patient has dialysis catheter. Will order dialysis for ultrafiltration and correction of acid-base. Discussed with ERASMO Mohr. September 22: Labs reviewed. Potassium high. Kayexalate and Reglan given. Will discuss with the consultants regarding initiation of dialysis. September 21: Patient is being sedated. Labs reviewed. Potassium supplement discontinued. GFR 20. Continue per current treatment plan. Dialysis and ultrafiltration is a consideration. September 20: Patient periodically agitated. Labs reviewed. Creatinine 2.4. Medication reviewed. Continue per consultants. Calculated creatinine clearance 21. May need isolated ultrafiltration on dialysis. Will discuss with PMD. Meanwhile hemoglobin is lower, defer transfusion to PMD. September 19: DC IV fluid. Zaroxolyn via GT tube. Potassium supplement. Attempt to diurese. Chest CT as bilateral pleural effusion. If diuresis unsuccessful, will consider dialysis and ultrafiltration. September 18: Potassium supplement IV given. Hemoglobin stable. Patient remains full code. Continue per consultants. Previously: Potassium supplement IV Slow IV hydration Epogen subcu Adjust blood pressure medication IV fluid, rate adjusted Norman catheter, intake and output Monitor renal parameters Avoid nephrotoxic's Antibiotics Per orders 2D echocardiogram Kidney ultrasound Subjective ROS Limited/Unobtainable: Yes Objective Objective Last 24 Hour Vital Signs Date Time Temp Pulse Resp B/P (MAP) Pulse Ox O2 Delivery O2 Flow Rate FiO2 10/05/19 12:30 65 10 111/45 (67) 95 10/05/19 12:00 100 10/05/19 12:00 98.7 63 20 98/40 (59) 91 10/05/19 12:00 64 10/05/19 12:00 Mechanical Ventilator Mechanical Ventilator 10/05/19 11:41 66 111/45 10/05/19 11:30 67 18 111/45 (67) 95 10/05/19 11:00 68 21 112/54 (73) 96 10/05/19 10:50 65 20 100 10/05/19 10:30 69 20 105/44 (64) 95 10/05/19 10:00 71 19 93/35 (54) 97 10/05/19 09:30 72 19 109/45 (66) 96 10/05/19 09:00 73 21 110/45 (66) 94 10/05/19 08:55 117/41 10/05/19 08:54 73 117/41 10/05/19 08:40 70 20 100 10/05/19 08:30 71 20 117/41 (66) 94 10/05/19 08:00 98.9 75 21 148/63 (91) 98 10/05/19 08:00 68 10/05/19 08:00 Mechanical Ventilator Mechanical Ventilator 10/05/19 08:00 100 10/05/19 07:30 71 19 138/60 (86) 94 10/05/19 07:24 63 20 98 Mechanical Ventilator 100 74 24 100 10/05/19 07:00 63 20 97/42 (60) 94 10/05/19 07:00 20 97/42 Mechanical Ventilator 100 10/05/19 06:30 63 20 97/42 (60) 94 10/05/19 06:21 20 97/39 Mechanical Ventilator 50.0 100 10/05/19 06:20 20 97/42 Mechanical Ventilator 100 10/05/19 06:00 62 20 99/45 (63) 94 10/05/19 06:00 20 97/42 Mechanical Ventilator 100 10/05/19 05:45 63 97/39 10/05/19 05:45 97/39 10/05/19 05:30 62 20 95/38 (57) 93 10/05/19 05:00 63 20 97/39 (58) 91 10/05/19 05:00 20 97/39 Mechanical Ventilator 100 10/05/19 04:30 63 20 103/45 (64) 94 10/05/19 04:30 20 92/43 Mechanical Ventilator 80 10/05/19 04:15 20 92/43 Mechanical Ventilator 80 10/05/19 04:00 80 10/05/19 04:00 62 10/05/19 04:00 Mechanical Ventilator Mechanical Ventilator 10/05/19 04:00 20 92/43 Mechanical Ventilator 80 10/05/19 04:00 98.4 62 20 92/43 (59) 95 10/05/19 03:30 62 18 109/43 (65) 97 10/05/19 03:29 62 20 100 10/05/19 03:20 98.2 10/05/19 03:00 62 20 100/43 (62) 98 8/22/20 03:00 21 100/43 Mechanical Ventilator 100 10/05/19 02:30 63 20 105/44 (64) 98 10/05/19 02:00 20 97/45 Mechanical Ventilator 100 10/05/19 02:00 66 20 97/45 (62) 94 10/05/19 01:30 62 20 93/41 (58) 95 10/05/19 01:27 61 20 100 Mechanical Ventilator 100 62 20 40 10/05/19 01:00 20 96/41 Mechanical Ventilator 100 10/05/19 01:00 60 20 96/41 (59) 95 10/05/19 00:30 61 20 106/44 (64) 98 10/05/19 00:00 65 10/05/19 00:00 98.2 67 20 132/55 (80) 100 10/05/19 00:00 21 132/55 Mechanical Ventilator 100 10/05/19 00:00 Mechanical Ventilator Mechanical Ventilator 10/04/19 23:49 67 185/73 10/04/19 23:49 180/73 10/04/19 23:48 69 20 100 10/04/19 23:35 72 21 185/73 (110) 98 10/04/19 23:30 71 21 188/82 (117) 96 10/04/19 23:00 60 20 127/74 (91) 97 10/04/19 23:00 21 188/82 Mechanical Ventilator 100 10/04/19 22:30 60 20 115/51 (72) 96 10/04/19 22:00 60 20 105/45 (65) 96 10/04/19 22:00 20 105/45 Mechanical Ventilator 100 10/04/19 21:30 61 20 104/44 (64) 96 10/04/19 21:00 63 20 107/44 (65) 93 10/04/19 21:00 20 107/44 Mechanical Ventilator 100 10/04/19 20:30 71 20 120/47 (71) 97 10/04/19 20:13 92 143/66 10/04/19 20:13 20 140/60 Mechanical Ventilator 50.0 100 10/04/19 20:12 20 140/60 Mechanical Ventilator 100 10/04/19 20:00 86 10/04/19 20:00 Mechanical Ventilator Mechanical Ventilator 10/04/19 20:00 100 10/04/19 20:00 20 140/60 Mechanical Ventilator 100 10/04/19 20:00 78 20 140/60 (86) 99 10/04/19 20:00 99.0 78 20 140/60 (86) 99 10/04/19 19:49 92 28 95 Mechanical Ventilator 100 84 20 40 10/04/19 19:30 78 20 143/66 (91) 98 10/04/19 19:00 23 155/94 Mechanical Ventilator 50 10/04/19 19:00 86 19 155/94 (114) 99 10/04/19 18:30 74 19 115/46 (69) 96 10/04/19 18:00 20 130/75 Mechanical Ventilator 50 10/04/19 18:00 78 20 130/50 (76) 10/04/19 17:32 102 185/69 10/04/19 17:32 185/69 10/04/19 17:30 88 21 130/85 (100) 98 10/04/19 17:24 103 24 100 10/04/19 17:18 99 22 175/76 (109) 94 10/04/19 17:00 113 23 190/82 (118) 91 10/04/19 17:00 23 175/76 Mechanical Ventilator 50 10/04/19 16:35 102 21 185/69 (107) 93 10/04/19 16:30 119 35 219/73 (121) 90 10/04/19 16:00 99.0 87 21 136/58 (84) 90 10/04/19 16:00 50 10/04/19 16:00 20 136/58 Non-Rebreather 50 10/04/19 16:00 86 10/04/19 16:00 Mechanical Ventilator Mechanical Ventilator 10/04/19 15:30 101 22 189/71 (110) 94 10/04/19 15:00 21 188/69 Mechanical Ventilator 50 10/04/19 15:00 96 24 181/81 (114) 90 10/04/19 14:48 105 22 50 10/04/19 14:47 159/69 10/04/19 14:30 96 18 172/68 (102) 94 10/04/19 14:00 102 22 196/77 (116) 93 10/04/19 14:00 21 196/77 Mechanical Ventilator 50 10/04/19 13:30 98 19 189/82 (117) 92 10/04/19 13:09 110 36 100 Mechanical Ventilator 40 85 20 40 10/04/19 13:00 22 182/82 Mechanical Ventilator 50 10/04/19 13:00 83 17 159/69 (99) 98 Intake and Output 10/04/19 10/05/19 19:00 07:00 Intake Total 1139.55 ml 1110.2 ml Output Total 310 ml 50 ml Balance 829.55 ml 1060.2 ml Intake Free Water 30 ml 100 ml IV Total 629.55 ml 290.2 ml Tube Feeding 480 ml 480 ml Other 240 ml Output Urine Total 310 ml 50 ml # Bowel Movements 3 Current Medications Medications (Trade) Dose Ordered Sig/Penny Route PRN Reason Start Time Stop Time Status Last Admin Dose Admin Acetaminophen (Tylenol) 325 mg Q6H PRN GT Temp >100.5 09/23/19 10:45 10/23/19 10:44 09/23/19 18:55 Albuterol/ Ipratropium (Albuterol/ Ipratropium) 3 ml Q6HRT HHN 10/04/19 13:00 10/09/19 12:59 10/05/19 07:14 Ascorbic Acid (Vitamin C) 500 mg DAILY ORAL 10/06/19 09:00 11/05/19 08:59 Chlorhexidine Gluconate (Ling-Hex 2%) 1 applic DAILY@2000 TOPIC 09/23/19 20:00 12/22/19 19:59 10/04/19 20:13 Diltiazem HCl (Cardizem Tab) 60 mg Q6HR GT 10/04/19 18:00 11/03/19 17:59 10/04/19 23:49 Docusate Sodium (Colace) 100 mg Q8H GT 09/29/19 08:30 10/29/19 08:29 10/05/19 08:54 Epoetin Gelacio (Epoetin Gelacio(ESRD on dialysis)) 10,000 unit MON-MON-MON SUBQ 09/25/19 21:00 12/24/19 20:59 10/04/19 20:59 Fentanyl Citrate 250 ml @ 0 mls/hr Q24H IV 10/04/19 10:45 10/06/19 10:44 10/05/19 06:21 Heparin Sodium (Porcine) (Heparin 5000 units/ml) 5,000 units EVERY 12 HOURS SUBQ 09/17/19 21:00 10/30/19 08:59 10/05/19 08:58 Hydralazine HCl (Apresoline) 10 mg Q4H PRN IV BP over 160 systolic 09/17/19 11:15 12/14/19 11:14 10/04/19 09:04 Lactulose (Cephulac) 10 gm THREE TIMES A DAY ORAL 10/03/19 13:00 11/02/19 12:59 10/05/19 08:53 Lansoprazole (Prevacid) 30 mg Q12HR GT 09/27/19 21:00 10/27/19 20:59 10/05/19 08:54 Lisinopril (ZestriL) 10 mg DAILY GT 10/04/19 13:30 11/03/19 13:29 10/05/19 08:55 Metoclopramide HCl (Reglan) 10 mg Q8H IVP 09/29/19 14:00 10/29/19 13:59 10/05/19 05:50 Metoprolol Tartrate (Lopressor) 50 mg EVERY 12 HOURS GT 10/04/19 21:00 12/14/19 20:59 10/05/19 08:54 Midazolam HCl (Versed 2mg/2ml vial) 1 mg Q4H PRN IVP For Anxiety 09/21/19 09:30 12/20/19 09:29 10/04/19 14:47 Minoxidil (Loniten) 2.5 mg Q6HR PRN GT BP OVER 170 SYST 10/05/19 08:30 12/31/19 13:59 Polyethylene Glycol (Miralax) 17 gm BEDTIME ORAL 10/01/19 21:00 10/31/19 20:59 10/04/19 20:14 Risperidone (RisperDAL) 2 mg BEDTIME ORAL 10/05/19 21:00 11/19/19 20:59 Sertraline HCl (Zoloft) 100 mg BEDTIME GT 09/17/19 21:00 10/15/19 20:59 10/04/19 20:13 Sorbitol (sorbitoL) 30 ml EVERY 6 HOURS PRN GT Constipation 09/29/19 18:00 10/29/19 17:59 10/01/19 00:44 Tramadol HCl (Ultram) 25 mg Q6H GT 10/04/19 20:45 10/11/19 20:44 10/05/19 08:55 Vitamin B Complex/ Vit C/Folic Acid (Nephrovite) 1 tab DAILY ORAL 10/06/19 09:00 11/05/19 08:59 Zinc Sulfate (Zinc Sulfate) 220 mg DAILY ORAL 10/06/19 09:00 10/16/19 08:59 Laboratory Tests 10/05/19 05:00: White Blood Count 7.0, Red Blood Count 2.74L, Hemoglobin 8.4L, Hematocrit 26.6L , Mean Corpuscular Volume 97, Mean Corpuscular Hemoglobin 30.7, Mean Corpuscular Hemoglobin Concent 31.6L, Red Cell Distribution Width 14.4, Platelet Count 377, Mean Platelet Volume 5.9L, Neutrophils (%) (Auto) 58.8, Lymphocytes (%) (Auto) 27.7, Monocytes (%) (Auto) 8.1, Eosinophils (%) (Auto) 3.7H, Basophils (%) (Auto) 1.7, Sodium Level 141, Potassium Level 3.9, Chloride Level 105, Carbon Dioxide Level 27, Anion Gap 9, Blood Urea Nitrogen 70H, Creatinine 2.7H, Estimat Glomerular Filtration Rate 18.9, Glucose Level 70L, Calcium Level 8.6, Phosphorus Level 4.6, Magnesium Level 2.7H, Total Bilirubin 0.3, Aspartate Amino Transf (AST/SGOT) 21, Alanine Aminotransferase (ALT/SGPT) 7L, Alkaline Phosphatase 126H, C-Reactive Protein, Quantitative 11.6H, Pro-B- Type Natriuretic Peptide > [id number], Total Protein 5.9L, Albumin 1.5L, Globulin 4.4, Albumin/Globulin Ratio 0.3L 10/05/19 08:20: Arterial Blood pH 7.419, Arterial Blood Partial Pressure CO2 39.6, Arterial Blood Partial Pressure O2 69.8L, Arterial Blood HCO3 25.1, Arterial Blood Oxygen Saturation 92.4L, Arterial Blood Base Excess 0.6, Rojas Test Positive Height (Feet): 5 Height (Inches): 5.00 Weight (Pounds): 140 General Appearance: no apparent distress EENT: other - On mechanical ventilation Cardiovascular: normal rate Respiratory/Chest: decreased breath sounds Abdomen: distended Objective No change Fouladian,Johnny MD Oct 05, 2019 13:00
[2019-10-05] MEDS: Dyna-Hex 2% Top Sol 2oz TOPIC SCH (19:47)
[2019-10-05] MEDS: Miralax 17gm pkt ORAL SCH (20:37)
[2019-10-05] MEDS: Sertraline 100mg tab GT SCH (20:38)
[2019-10-05] MEDS ORDERED: NovoLOG Insulin Flexpen SUBQ SCH (21:00)
[2019-10-06] VITALS (48 sets, daily range): BP systolic 106–155; BP diastolic 43–101
[2019-10-06] MEDS: Albuterol/Ipratropium 3ml neb HHN SCH ×4 (01:20→19:20)
[2019-10-06] MEDS: traMADol 50mg tab GT SCH ×4 (02:30→21:07)
[2019-10-06 05:52] LABS: BASOPHILS % (AUTO) 1.6 % (0.0-2.0); EOSINOPHILS % (AUTO) 4.4 % (0.0-3.0); HEMATOCRIT 27.2 % (37.0-47.0); HEMOGLOBIN 8.5 G/DL (12.0-16.0); LYMPHOCYTES % (AUTO) 23.7 % (20.0-45.0); MEAN CORPUSCULAR VOLUME 97 FL (80-99); MONOCYTES % (AUTO) 7.5 % (1.0-10.0); NEUTROPHILS % (AUTO) 62.8 % (45.0-75.0); PLATELET COUNT 402 K/UL (150-450); RED CELL DISTRIBUTION WIDTH 14.5 % (11.6-14.8); WHITE BLOOD COUNT 7.1 K/UL (4.8-10.8)
[2019-10-06] MEDS: NovoLOG Insulin Flexpen SUBQ SCH ×4 (05:52→17:35)
[2019-10-06] MEDS: Metoclopramide 10mg/2ml Inj IVP SCH ×3 (05:52→21:32)
[2019-10-06] MEDS: dilTIAZem HCl 60mg tab GT SCH ×3 (05:52→18:18)
[2019-10-06 06:24] LABS: ALBUMIN 1.6 G/DL (3.4-5.0); ALBUMIN/GLOBULIN RATIO 0.4 (1.0-2.7); ALKALINE PHOSPHATASE 142 U/L (46-116); ANION GAP 11 mmol/L (5-15); ASPARTATE AMINO TRANSFERASE 19 U/L (15-37); BILIRUBIN,TOTAL 0.2 MG/DL (0.2-1.0); BLOOD UREA NITROGEN 74 mg/dL (7-18); CALCIUM 8.5 MG/DL (8.5-10.1); CARBON DIOXIDE 27 MMOL/L (21-32); CHLORIDE 102 MMOL/L (98-107); CREATININE 3.1 MG/DL (0.55-1.30); PHOSPHORUS 5.2 MG/DL (2.5-4.9); SODIUM 140 MMOL/L (136-145)
[2019-10-06 06:29] LABS: ALANINE AMINOTRANSFERASE < 6 U/L (12-78)
[2019-10-06] MEDS: Lactulose 10gm/15ml UDC ORAL SCH ×3 (08:27→18:17)
[2019-10-06] MEDS: Docusate 100mg/10ml Liq GT SCH ×2 (08:27→16:12)
[2019-10-06] MEDS: Zinc Sulfate 220mg ORAL SCH (08:27)
[2019-10-06] MEDS: Ascorbic Acid 500mg tab ORAL SCH (08:27)
[2019-10-06] MEDS: Lisinopril 10mg tab GT SCH ×2 (08:27→18:18)
[2019-10-06] MEDS: Nephrovite tab (Rena-Vite) ORAL SCH (08:27)
[2019-10-06] MEDS: Metoprolol Tartrate 50mg tab GT SCH ×2 (08:29→21:00)
[2019-10-06] MEDS: Heparin 5000 units/ml inj SUBQ SCH ×2 (08:30→21:06)
--- NOTE | 2019-10-06 08:48 | Pulmonolgy Critical Care Note ---
Yara Castro PRINT MANAGER 10/06/19 0848: Critical Care - Asmt/Plan Assessment/Plan: ASSESSMENT Acute on chronic hypoxemic respiratory failure ( trach dependent), now on vent Tracheostomy status, s/p change to cuffed trach Sepsis Pulmonary edema Pleural effusion -worsening left pl effusion s/p thoracentesis L pleural effusion 09/26 -900 ml Pneumonia with MDR Pseudomonas UTI CHF ? cardiorenal COPD Acute kidney injury and chronic kidney disease-requiring start of HD Hypertension Atrial fibrillation Moderate pulm HTN Moderate AR Dysphagia , feeding by G-tube Electrolyte abnormalities Anemia Toxic metabolic encephalopathy likely due to sepsis and ARF HTN PAF PLAN OF CARE ICU on vent AC trach changed 8/4 pm from uncuffed to cuffed Shiley#[address] chest w/out contrast: - Bilateral pleural effusions, right greater than left, with bilateral lower lobe consolidation or volume loss. -Ground-glass densities in the upper lobes bilaterally. This is not specific. -Tracheostomy. -Increased superior mediastinal density. Stability of adenopathy cannot be excluded. -Atherosclerotic change. -Gastrostomy. -Ascites. -Left renal stent with left hydronephrosis and renal atrophy. VQ scan -> low probability for PE worsening resp status was due to need for HD, now after HD started, resp status improving, down to PEEP 5 and AC 20 trach care , pulmonary toilet ABG this am on FiO2 45 % mild hypoxia, but pulse oximetry above 90% , keep as is and titrate Fio2 further down as tolerated fup with ABG and CXR Mucomyst was prior dc given lots of thin secretions, continue Duoneb prn rapid COVID 19 NGT x3 sedation with fentanyl gtt and Versed prn-> off Versed and on weaning from Fentanyl as tolerated unable to wean, gets agitated and anxious 10/03 night desaturated, apparently due to anxiety, Fio2 up to 100% again ABG and CXR noted, psych eval appreciated, psych meds regimen implemented on Fentanyl gtt , weaning s/p thoracentesis L pleural effusion 09/26 am -> 900 ml fluid analysis noted, unlikely empyema given small # of WBC fup with fluid cx ( apparently never sent despite orders) cytology -> NGT, no malignant cells aspiration precautions venous Duplex BLE -> NGT DVT prophylaxis pulm toilet, abx as per ID- s/p gent x 1, now on Vanco and Zerbaxa , completed 10/02 SCX 09/15 + Proteus, SCX 09/22 Pseudomonas MDR UCX 09/14 + Providencia , UCX 09/22 VRE - K only BCX 09/14 Staph epidermidis, BCX 09/15 NGT , BCX 09/22 and 09/26 - NGTD monitor volumes was on gentle IVF-> dc s/p prior diuretic-Lasix require initiation of HD close monitoring of volumes, renal parameters and lytes -per nephro recs HD as per nephro K replaced earlier this am ECHO with pEF , moderate pulm HTN and moderate AR BP management with current regimen of BB, Cardizem and Hydralazine, remains in SR monitor HH with goal to keep Hgb >7, heme on board on EPO supportive care pain management wound care bowel regimen psych eval Dr Linares pending s/p Seroquel x 1 by nephro thank you for a consult Critical Care - Objective Last 24 Hour Vital Signs Date Time Temp Pulse Resp B/P (MAP) Pulse Ox O2 Delivery O2 Flow Rate FiO2 10/06/19 08:29 60 115/50 10/06/19 08:27 115/50 10/06/19 07:25 60 20 96 Mechanical Ventilator 100 61 20 100 10/06/19 07:00 63 20 135/54 (81) 98 10/06/19 07:00 20 135/54 Mechanical Ventilator 100 10/06/19 06:30 61 20 129/49 (75) 98 10/06/19 06:00 59 20 120/47 (71) 96 10/06/19 06:00 20 120/47 Mechanical Ventilator 100 10/06/19 05:52 62 127/53 10/06/19 05:30 57 20 127/53 (77) 97 10/06/19 05:07 57 20 100 10/06/19 05:00 58 20 126/50 (75) 97 10/06/19 05:00 20 126/50 Mechanical Ventilator 100 10/06/19 04:30 57 20 123/49 (73) 96 10/06/19 04:00 98.1 61 21 138/75 (96) 95 10/06/19 04:00 21 138/75 Mechanical Ventilator 100 10/06/19 04:00 61 10/06/19 04:00 Mechanical Ventilator Mechanical Ventilator 10/06/19 04:00 100 10/06/19 03:30 63 19 119/50 (73) 94 10/06/19 03:00 61 20 115/48 (70) 94 10/06/19 03:00 20 115/48 Mechanical Ventilator 100 10/06/19 02:57 61 20 100 10/06/19 02:30 62 20 114/43 (66) 94 10/06/19 02:00 20 106/44 Mechanical Ventilator 100 10/06/19 02:00 62 20 106/44 (64) 95 10/06/19 01:30 64 19 116/45 (68) 96 10/06/19 01:20 64 24 95 Mechanical Ventilator 100 62 20 100 10/06/19 01:00 64 20 113/45 (67) 94 10/06/19 01:00 20 113/45 Mechanical Ventilator 100 10/06/19 00:30 62 20 108/44 (65) 93 10/06/19 00:00 Mechanical Ventilator Mechanical Ventilator 10/06/19 00:00 100 10/06/19 00:00 20 112/45 Mechanical Ventilator 100 10/06/19 00:00 62 10/06/19 00:00 98.5 62 20 112/45 (67) 94 10/05/19 23:53 68 134/57 10/05/19 23:30 64 17 134/57 (82) 93 10/05/19 23:17 59 20 100 10/05/19 23:00 64 24 115/66 (82) 92 10/05/19 23:00 24 115/66 Mechanical Ventilator 100 10/05/19 22:30 62 20 114/50 (71) 93 10/05/19 22:00 62 20 123/53 (76) 94 10/05/19 22:00 20 123/53 Mechanical Ventilator 100 10/05/19 21:44 62 20 100 10/05/19 21:30 62 20 126/52 (76) 96 10/05/19 21:00 21 142/63 Mechanical Ventilator 100 10/05/19 21:00 69 21 142/63 (89) 96 10/05/19 20:41 20 131/52 Mechanical Ventilator 100 10/05/19 20:39 65 131/52 10/05/19 20:30 65 20 131/52 (78) 97 8/22/20 20:00 98.5 65 20 125/49 (74) 96 10/05/19 20:00 Mechanical Ventilator Mechanical Ventilator 10/05/19 20:00 20 125/49 Mechanical Ventilator 100 10/05/19 20:00 100 10/05/19 19:49 64 20 98 Mechanical Ventilator 100 62 20 100 10/05/19 19:30 63 20 122/52 (75) 96 10/05/19 19:09 64 10/05/19 19:00 63 20 123/49 (73) 96 10/05/19 19:00 20 123/49 Mechanical Ventilator 100 10/05/19 18:30 61 20 119/49 (72) 96 10/05/19 18:00 20 111/53 Mechanical Ventilator 100 10/05/19 18:00 62 20 111/53 (72) 96 10/05/19 17:30 64 20 105/46 (65) 95 10/05/19 17:28 63 103/47 10/05/19 17:14 64 20 100 10/05/19 17:00 64 20 103/47 (65) 96 10/05/19 17:00 20 103/47 Mechanical Ventilator 100 10/05/19 16:30 65 20 114/46 (68) 96 10/05/19 16:00 99.2 67 20 116/49 (71) 97 10/05/19 16:00 100 10/05/19 16:00 20 116/49 Mechanical Ventilator 100 10/05/19 16:00 68 10/05/19 16:00 Mechanical Ventilator Mechanical Ventilator 10/05/19 15:55 99.2 10/05/19 15:30 71 26 117/93 (101) 91 10/05/19 15:00 20 144/83 Mechanical Ventilator 100 10/05/19 15:00 71 26 144/83 (103) 89 10/05/19 14:57 72 25 100 10/05/19 14:30 65 20 116/45 (68) 91 10/05/19 14:00 20 96/38 Mechanical Ventilator 100 10/05/19 14:00 59 20 98/38 (58) 91 10/05/19 13:30 61 20 102/44 (63) 93 10/05/19 13:08 60 20 92 Mechanical Ventilator 100 61 20 100 10/05/19 13:00 20 95/39 Mechanical Ventilator 100 10/05/19 13:00 61 20 95/39 (57) 93 10/05/19 12:30 65 10 111/45 (67) 95 10/05/19 12:00 100 10/05/19 12:00 20 98/40 Mechanical Ventilator 100 10/05/19 12:00 98.7 63 20 98/40 (59) 91 10/05/19 12:00 64 10/05/19 12:00 Mechanical Ventilator Mechanical Ventilator 10/05/19 11:41 66 111/45 10/05/19 11:30 67 18 111/45 (67) 95 10/05/19 11:00 68 21 112/54 (73) 96 10/05/19 11:00 20 112/34 Mechanical Ventilator 100 10/05/19 10:50 65 20 100 10/05/19 10:30 69 20 105/44 (64) 95 10/05/19 10:00 71 19 93/35 (54) 97 10/05/19 10:00 20 93/35 Mechanical Ventilator 100 10/05/19 09:30 72 19 109/45 (66) 96 10/05/19 09:00 20 110/45 Mechanical Ventilator 100 10/05/19 09:00 73 21 110/45 (66) 94 10/05/19 08:55 117/41 10/05/19 08:54 73 117/41 Objective: General Appearance: no apparent distress, bedridden middle age chronically ill looking female on vent AC 500-20- 100%, PEEP 5, sedated Lines, tubes and drains: left jugular HD catheter HEENT: normocephalic, atraumatic, anicteric, trach - Shiley #7 cuffed XLT, secretions moderate amount, yellow color , thick consistency Respiratory/Chest: no accessory muscle use, few scattered rhonchi bilaterally , Cardiovascular/Chest: normal rate, regular rhythm - SR on tele Abdomen: normal bowel sounds, non tender, soft, G tube Genitourinary/Rectal: Norman Extremities: no edema Skin Exam: warm/dry, multiple tattoos all over the body Neurologic: abnormal gait, sedated Musculoskeletal: atrophy - BLE Accucheck: 77 Critical Care - Subjective ROS Limited/Unobtainable: Yes Interval Events: remains on 100% FiO2 no signs of distress calm and sedated this am on Fentanyl gtt down to 180 mcg/hr Condition: critical IV Access: central - L jugular HD catheter intact EKG Rhythm: Sinus Rhythm FI02: 100 Vent Support Breath Rate: 20 Vent Support Mode: AC Vent Tidal Volume: 500 Sputum Amount: Small - amount, thick consistency PEEP: 5.0 PIP: 26 Drips: Fentanyl gtt 180 mcg/hr Tube Feeding Amount: 40 I&O: Intake and Output 10/05/19 10/06/19 19:00 07:00 Intake Total 926 ml 946 ml Output Total 60 ml 25 ml Balance 866 ml 921 ml Intake Free Water 200 ml IV Total 216 ml 216 ml Tube Feeding 480 ml 480 ml Other 30 ml 250 ml Output Urine Total 60 ml 25 ml # Bowel Movements 2 CXR: CXR 10/04 1. Stable endotracheal tube and left-sided central venous catheter. 2. Slightly increased bilateral pleural effusions with associated atelectasis versus pneumonia. Slightly increased interstitial and hazy opacities in the lungs, concerning for pulmonary vasculature congestion and edema. Juve Martinez MD 10/06/19 1316: Critical Care - Asmt/Plan Assessment/Plan: Patient seen and examined with PRINT MANAGER. Agree with above A&P as it reflects our joint deliberations. Time Spent (Minutes): 40 Yara Castro NP Oct 06, 2019 08:48 Juve Martinez MD Oct 06, 2019 13:16
--- NOTE | 2019-10-06 09:56 | General Progress Note ---
Assessment/Plan Problem List: (1) S/P aortic dissection repair ICD Codes: Z98.890 - Other specified postprocedural states SNOMED: 255831847, 554462516 (2) Sacral decubitus ulcer, stage IV ICD Codes: L89.154 - Pressure ulcer of sacral region, stage 4 SNOMED: 521389569, 468612755 (3) Anemia ICD Codes: D64.9 - Anemia, unspecified SNOMED: 464555777 (4) GT CLOGGED (5) Feeding by G-tube ICD Codes: Z93.1 - Gastrostomy status SNOMED: 126552668, 574469270 (6) Tracheostomy in place ICD Codes: Z93.0 - Tracheostomy status SNOMED: 413931703 (7) Pacemaker ICD Codes: Z95.0 - Presence of cardiac pacemaker SNOMED: 784818852 (8) Chronic respiratory failure ICD Codes: J96.10 - Chronic respiratory failure, unspecified whether with hypoxia or hypercapnia SNOMED: 11096932 Assessment/Plan: GTF monitor for residuals repeat labs ICU care on lactulose Subjective ROS Limited/Unobtainable: No Allergies: Coded Allergies: No Known Allergies (Unverified , 10/10/17) Objective Last 24 Hour Vital Signs Date Time Temp Pulse Resp B/P (MAP) Pulse Ox O2 Delivery O2 Flow Rate FiO2 10/06/19 09:30 60 17 155/101 (119) 98 10/06/19 09:11 62 20 100 10/06/19 09:00 60 20 118/52 (74) 97 10/06/19 08:30 60 20 131/52 (78) 96 10/06/19 08:29 60 115/50 10/06/19 08:27 115/50 10/06/19 08:00 98.2 60 20 115/50 (71) 96 10/06/19 07:30 60 20 131/53 (79) 96 10/06/19 07:25 60 20 96 Mechanical Ventilator 100 61 20 100 10/06/19 07:00 63 20 135/54 (81) 98 10/06/19 07:00 20 135/54 Mechanical Ventilator 100 10/06/19 06:30 61 20 129/49 (75) 98 10/06/19 06:00 59 20 120/47 (71) 96 10/06/19 06:00 20 120/47 Mechanical Ventilator 100 10/06/19 05:52 62 127/53 10/06/19 05:30 57 20 127/53 (77) 97 10/06/19 05:07 57 20 100 10/06/19 05:00 58 20 126/50 (75) 97 10/06/19 05:00 20 126/50 Mechanical Ventilator 100 10/06/19 04:30 57 20 123/49 (73) 96 10/06/19 04:00 98.1 61 21 138/75 (96) 95 10/06/19 04:00 21 138/75 Mechanical Ventilator 100 10/06/19 04:00 61 10/06/19 04:00 Mechanical Ventilator Mechanical Ventilator 10/06/19 04:00 100 10/06/19 03:30 63 19 119/50 (73) 94 10/06/19 03:00 61 20 115/48 (70) 94 10/06/19 03:00 20 115/48 Mechanical Ventilator 100 10/06/19 02:57 61 20 100 10/06/19 02:30 62 20 114/43 (66) 94 10/06/19 02:00 20 106/44 Mechanical Ventilator 100 10/06/19 02:00 62 20 106/44 (64) 95 10/06/19 01:30 64 19 116/45 (68) 96 10/06/19 01:20 64 24 95 Mechanical Ventilator 100 62 20 100 10/06/19 01:00 64 20 113/45 (67) 94 10/06/19 01:00 20 113/45 Mechanical Ventilator 100 10/06/19 00:30 62 20 108/44 (65) 93 10/06/19 00:00 Mechanical Ventilator Mechanical Ventilator 10/06/19 00:00 100 10/06/19 00:00 20 112/45 Mechanical Ventilator 100 10/06/19 00:00 62 10/06/19 00:00 98.5 62 20 112/45 (67) 94 10/05/19 23:53 68 134/57 10/05/19 23:30 64 17 134/57 (82) 93 10/05/19 23:17 59 20 100 10/05/19 23:00 64 24 115/66 (82) 92 10/05/19 23:00 24 115/66 Mechanical Ventilator 100 8/22/20 22:30 62 20 114/50 (71) 93 10/05/19 22:00 62 20 123/53 (76) 94 10/05/19 22:00 20 123/53 Mechanical Ventilator 100 10/05/19 21:44 62 20 100 10/05/19 21:30 62 20 126/52 (76) 96 10/05/19 21:00 21 142/63 Mechanical Ventilator 100 10/05/19 21:00 69 21 142/63 (89) 96 10/05/19 20:41 20 131/52 Mechanical Ventilator 100 10/05/19 20:39 65 131/52 10/05/19 20:30 65 20 131/52 (78) 97 10/05/19 20:00 98.5 65 20 125/49 (74) 96 10/05/19 20:00 Mechanical Ventilator Mechanical Ventilator 10/05/19 20:00 20 125/49 Mechanical Ventilator 100 10/05/19 20:00 100 10/05/19 19:49 64 20 98 Mechanical Ventilator 100 62 20 100 10/05/19 19:30 63 20 122/52 (75) 96 10/05/19 19:09 64 10/05/19 19:00 63 20 123/49 (73) 96 10/05/19 19:00 20 123/49 Mechanical Ventilator 100 10/05/19 18:30 61 20 119/49 (72) 96 10/05/19 18:00 20 111/53 Mechanical Ventilator 100 10/05/19 18:00 62 20 111/53 (72) 96 10/05/19 17:30 64 20 105/46 (65) 95 10/05/19 17:28 63 103/47 10/05/19 17:14 64 20 100 10/05/19 17:00 64 20 103/47 (65) 96 10/05/19 17:00 20 103/47 Mechanical Ventilator 100 10/05/19 16:30 65 20 114/46 (68) 96 10/05/19 16:00 99.2 67 20 116/49 (71) 97 10/05/19 16:00 100 10/05/19 16:00 20 116/49 Mechanical Ventilator 100 10/05/19 16:00 68 10/05/19 16:00 Mechanical Ventilator Mechanical Ventilator 10/05/19 15:55 99.2 10/05/19 15:30 71 26 117/93 (101) 91 10/05/19 15:00 20 144/83 Mechanical Ventilator 100 10/05/19 15:00 71 26 144/83 (103) 89 10/05/19 14:57 72 25 100 10/05/19 14:30 65 20 116/45 (68) 91 10/05/19 14:00 20 96/38 Mechanical Ventilator 100 10/05/19 14:00 59 20 98/38 (58) 91 10/05/19 13:30 61 20 102/44 (63) 93 10/05/19 13:08 60 20 92 Mechanical Ventilator 100 61 20 100 10/05/19 13:00 20 95/39 Mechanical Ventilator 100 10/05/19 13:00 61 20 95/39 (57) 93 10/05/19 12:30 65 10 111/45 (67) 95 10/05/19 12:00 100 10/05/19 12:00 20 98/40 Mechanical Ventilator 100 10/05/19 12:00 98.7 63 20 98/40 (59) 91 10/05/19 12:00 64 10/05/19 12:00 Mechanical Ventilator Mechanical Ventilator 10/05/19 11:41 66 111/45 10/05/19 11:30 67 18 111/45 (67) 95 10/05/19 11:00 68 21 112/54 (73) 96 10/05/19 11:00 20 112/34 Mechanical Ventilator 100 10/05/19 10:50 65 20 100 10/05/19 10:30 69 20 105/44 (64) 95 10/05/19 10:00 71 19 93/35 (54) 97 10/05/19 10:00 20 93/35 Mechanical Ventilator 100 Intake and Output 10/05/19 10/06/19 19:00 07:00 Intake Total 926 ml 946 ml Output Total 60 ml 25 ml Balance 866 ml 921 ml Intake Free Water 200 ml IV Total 216 ml 216 ml Tube Feeding 480 ml 480 ml Other 30 ml 250 ml Output Urine Total 60 ml 25 ml # Bowel Movements 2 Laboratory Tests 10/06/19 04:20: White Blood Count 7.1, Red Blood Count 2.80L, Hemoglobin 8.5L, Hematocrit 27.2L , Mean Corpuscular Volume 97, Mean Corpuscular Hemoglobin 30.4, Mean Corpuscular Hemoglobin Concent 31.3L, Red Cell Distribution Width 14.5, Platelet Count 402, Mean Platelet Volume 5.6L, Neutrophils (%) (Auto) 62.8, Lymphocytes (%) (Auto) 23.7, Monocytes (%) (Auto) 7.5, Eosinophils (%) (Auto) 4.4H, Basophils (%) (Auto) 1.6 10/06/19 05:30: Sodium Level 140, Potassium Level 4.0, Chloride Level 102, Carbon Dioxide Level 27, Anion Gap 11, Blood Urea Nitrogen 74H, Creatinine 3.1H, Estimat Glomerular Filtration Rate 16.1, Glucose Level 76, Calcium Level 8.5, Phosphorus Level 5.2H , Magnesium Level 2.8H, Total Bilirubin 0.2, Aspartate Amino Transf (AST/SGOT) 19, Alanine Aminotransferase (ALT/SGPT) < 6L, Alkaline Phosphatase 142H, Total Protein 6.1L, Albumin 1.6L, Globulin 4.5, Albumin/Globulin Ratio 0.4L Height (Feet): 5 Height (Inches): 5.00 Weight (Pounds): 142 General Appearance: no apparent distress EENT: normal ENT inspection Neck: supple Cardiovascular: normal rate Respiratory/Chest: decreased breath sounds Abdomen: hypoactive bowel sounds Extremities: non-tender Inder Mccauley MD Oct 06, 2019 09:56
--- NOTE | 2019-10-06 10:02 | Surgery Progress Note ---
Surgery Progress Note Subjective Symptoms: improved, tolerating diet, passing flatus, pain decreased Objective Last 24 Hour Vital Signs Date Time Temp Pulse Resp B/P (MAP) Pulse Ox O2 Delivery O2 Flow Rate FiO2 10/06/19 09:30 60 17 155/101 (119) 98 10/06/19 09:11 62 20 100 10/06/19 09:00 60 20 118/52 (74) 97 10/06/19 08:30 60 20 131/52 (78) 96 10/06/19 08:29 60 115/50 10/06/19 08:27 115/50 10/06/19 08:00 Mechanical Ventilator Mechanical Ventilator 10/06/19 08:00 98.2 60 20 115/50 (71) 96 10/06/19 07:30 60 20 131/53 (79) 96 10/06/19 07:25 60 20 96 Mechanical Ventilator 100 61 20 100 10/06/19 07:00 63 20 135/54 (81) 98 10/06/19 07:00 20 135/54 Mechanical Ventilator 100 10/06/19 06:30 61 20 129/49 (75) 98 10/06/19 06:00 59 20 120/47 (71) 96 10/06/19 06:00 20 120/47 Mechanical Ventilator 100 10/06/19 05:52 62 127/53 10/06/19 05:30 57 20 127/53 (77) 97 10/06/19 05:07 57 20 100 10/06/19 05:00 58 20 126/50 (75) 97 10/06/19 05:00 20 126/50 Mechanical Ventilator 100 10/06/19 04:30 57 20 123/49 (73) 96 10/06/19 04:00 98.1 61 21 138/75 (96) 95 10/06/19 04:00 21 138/75 Mechanical Ventilator 100 10/06/19 04:00 61 10/06/19 04:00 Mechanical Ventilator Mechanical Ventilator 10/06/19 04:00 100 10/06/19 03:30 63 19 119/50 (73) 94 10/06/19 03:00 61 20 115/48 (70) 94 10/06/19 03:00 20 115/48 Mechanical Ventilator 100 10/06/19 02:57 61 20 100 10/06/19 02:30 62 20 114/43 (66) 94 10/06/19 02:00 20 106/44 Mechanical Ventilator 100 10/06/19 02:00 62 20 106/44 (64) 95 10/06/19 01:30 64 19 116/45 (68) 96 10/06/19 01:20 64 24 95 Mechanical Ventilator 100 62 20 100 10/06/19 01:00 64 20 113/45 (67) 94 10/06/19 01:00 20 113/45 Mechanical Ventilator 100 10/06/19 00:30 62 20 108/44 (65) 93 10/06/19 00:00 Mechanical Ventilator Mechanical Ventilator 10/06/19 00:00 100 10/06/19 00:00 20 112/45 Mechanical Ventilator 100 10/06/19 00:00 62 10/06/19 00:00 98.5 62 20 112/45 (67) 94 10/05/19 23:53 68 134/57 10/05/19 23:30 64 17 134/57 (82) 93 10/05/19 23:17 59 20 100 10/05/19 23:00 64 24 115/66 (82) 92 10/05/19 23:00 24 115/66 Mechanical Ventilator 100 10/05/19 22:30 62 20 114/50 (71) 93 10/05/19 22:00 62 20 123/53 (76) 94 10/05/19 22:00 20 123/53 Mechanical Ventilator 100 10/05/19 21:44 62 20 100 10/05/19 21:30 62 20 126/52 (76) 96 10/05/19 21:00 21 142/63 Mechanical Ventilator 100 10/05/19 21:00 69 21 142/63 (89) 96 10/05/19 20:41 20 131/52 Mechanical Ventilator 100 10/05/19 20:39 65 131/52 10/05/19 20:30 65 20 131/52 (78) 97 10/05/19 20:00 98.5 65 20 125/49 (74) 96 10/05/19 20:00 Mechanical Ventilator Mechanical Ventilator 10/05/19 20:00 20 125/49 Mechanical Ventilator 100 10/05/19 20:00 100 10/05/19 19:49 64 20 98 Mechanical Ventilator 100 62 20 100 10/05/19 19:30 63 20 122/52 (75) 96 10/05/19 19:09 64 10/05/19 19:00 63 20 123/49 (73) 96 10/05/19 19:00 20 123/49 Mechanical Ventilator 100 10/05/19 18:30 61 20 119/49 (72) 96 10/05/19 18:00 20 111/53 Mechanical Ventilator 100 10/05/19 18:00 62 20 111/53 (72) 96 10/05/19 17:30 64 20 105/46 (65) 95 10/05/19 17:28 63 103/47 10/05/19 17:14 64 20 100 10/05/19 17:00 64 20 103/47 (65) 96 10/05/19 17:00 20 103/47 Mechanical Ventilator 100 10/05/19 16:30 65 20 114/46 (68) 96 10/05/19 16:00 99.2 67 20 116/49 (71) 97 10/05/19 16:00 100 10/05/19 16:00 20 116/49 Mechanical Ventilator 100 10/05/19 16:00 68 10/05/19 16:00 Mechanical Ventilator Mechanical Ventilator 10/05/19 15:55 99.2 10/05/19 15:30 71 26 117/93 (101) 91 10/05/19 15:00 20 144/83 Mechanical Ventilator 100 10/05/19 15:00 71 26 144/83 (103) 89 10/05/19 14:57 72 25 100 10/05/19 14:30 65 20 116/45 (68) 91 10/05/19 14:00 20 96/38 Mechanical Ventilator 100 10/05/19 14:00 59 20 98/38 (58) 91 10/05/19 13:30 61 20 102/44 (63) 93 10/05/19 13:08 60 20 92 Mechanical Ventilator 100 61 20 100 10/05/19 13:00 20 95/39 Mechanical Ventilator 100 10/05/19 13:00 61 20 95/39 (57) 93 10/05/19 12:30 65 10 111/45 (67) 95 10/05/19 12:00 100 10/05/19 12:00 20 98/40 Mechanical Ventilator 100 10/05/19 12:00 98.7 63 20 98/40 (59) 91 10/05/19 12:00 64 10/05/19 12:00 Mechanical Ventilator Mechanical Ventilator 10/05/19 11:41 66 111/45 10/05/19 11:30 67 18 111/45 (67) 95 10/05/19 11:00 68 21 112/54 (73) 96 10/05/19 11:00 20 112/34 Mechanical Ventilator 100 10/05/19 10:50 65 20 100 10/05/19 10:30 69 20 105/44 (64) 95 I&O Intake and Output 10/05/19 10/06/19 19:00 07:00 Intake Total 926 ml 946 ml Output Total 60 ml 25 ml Balance 866 ml 921 ml Intake Free Water 200 ml IV Total 216 ml 216 ml Tube Feeding 480 ml 480 ml Other 30 ml 250 ml Output Urine Total 60 ml 25 ml # Bowel Movements 2 Dressing: dry Wound: clean Cardiovascular: RSR Respiratory: decreased breath sounds Abdomen: soft, non-tender, present bowel sounds Extremities: no edema, no tenderness, no cyanosis Laboratory Tests Test 10/06/19 04:20 10/06/19 05:30 White Blood Count 7.1 K/UL (4.8-10.8) Red Blood Count 2.80 M/UL (4.20-5.40) L Hemoglobin 8.5 G/DL (12.0-16.0) L Hematocrit 27.2 % (37.0-47.0) L Mean Corpuscular Volume 97 FL (80-99) Mean Corpuscular Hemoglobin 30.4 PG (27.0-31.0) Mean Corpuscular Hemoglobin Concent 31.3 G/DL (32.0-36.0) L Red Cell Distribution Width 14.5 % (11.6-14.8) Platelet Count 402 K/UL (150-450) Mean Platelet Volume 5.6 FL (6.5-10.1) L Neutrophils (%) (Auto) 62.8 % (45.0-75.0) Lymphocytes (%) (Auto) 23.7 % (20.0-45.0) Monocytes (%) (Auto) 7.5 % (1.0-10.0) Eosinophils (%) (Auto) 4.4 % (0.0-3.0) H Basophils (%) (Auto) 1.6 % (0.0-2.0) Sodium Level 140 MMOL/L (136-145) Potassium Level 4.0 MMOL/L (3.5-5.1) Chloride Level 102 MMOL/L (98-107) Carbon Dioxide Level 27 MMOL/L (21-32) Anion Gap 11 mmol/L (5-15) Blood Urea Nitrogen 74 mg/dL (7-18) H Creatinine 3.1 MG/DL (0.55-1.30) H Estimat Glomerular Filtration Rate 16.1 mL/min (>60) Glucose Level 76 MG/DL (74-106) Calcium Level 8.5 MG/DL (8.5-10.1) Phosphorus Level 5.2 MG/DL (2.5-4.9) H Magnesium Level 2.8 MG/DL (1.8-2.4) H Total Bilirubin 0.2 MG/DL (0.2-1.0) Aspartate Amino Transf (AST/SGOT) 19 U/L (15-37) Alanine Aminotransferase (ALT/SGPT) < 6 U/L (12-78) L Alkaline Phosphatase 142 U/L (46-116) H Total Protein 6.1 G/DL (6.4-8.2) L Albumin 1.6 G/DL (3.4-5.0) L Globulin 4.5 g/dL Albumin/Globulin Ratio 0.4 (1.0-2.7) L Plan Problems: (1) Anemia (2) Proteinuria (3) UTI (urinary tract infection) (4) ARF (acute renal failure) (5) ACS (acute coronary syndrome) (6) Respiratory failure, acute and chronic (7) HCAP (healthcare-associated pneumonia) (8) Abrasion of lip, initial encounter (9) COPD with exacerbation (10) Hypokalemia (11) Sepsis Assessment & Plan: Leukocytosis, anemia, abnormal labs. Renal insufficiency potentially dehydrated Abnormal LFTs alk phos elevated Urine noted significant bacteria likely UTI etiology Wound stable still requiring local care IV antibiotics per infectious disease Discussed with fish roe technician Dr. Berkowitz air mattress turn q2h nutritional tf will follow with recs thank you CT noted pending VQ scan - noted poor study low prob PE work respiratory increasing needs sedation weaning vent settings 80% peep 10 now comfortable Hd line in receiving HD plan for left thora 09/26 (12) Chronic respiratory failure (13) Ascites (14) Bacteremia (15) Hypernatremia (16) Pleural effusion (17) Pacemaker (18) Aortic dissection, thoracic (19) Tracheostomy in place Assessment & Plan: trach stable no bleeding currently likely tongue etiology of mild oozing currently hemostatic without trauma (20) Feeding by G-tube Assessment & Plan: okay to resume tube feeds via g tube patent and functional dressings okay DAILY ESTIMATED NEEDS: Needs based on Pulmonary, wound 49kg 30-35 kcals/kg 1857-3061 total kcals 1.25-2 g protein/kg 61-98 g total protein Fluid per MD NUTRITION DIAGNOSIS: * Swallowing difficulty R/T dysphagia, respiratory status as evidenced by vent dep via T-collar, GT Dep. (CURRENT TF: Nepro @45ml/hr x 24 hrs) ENTERAL NUTRITION RECOMMENDATIONS: Nepro @ 40ml/hr x 24 hrs to provide 960ml, 1728kcal, 78g prot, 698ml free water * Rec LOWER current rate to 40ml/hr for 24 hrs run. * Water flush of 100ml q 6 hrs per orders * HOB over 30 degrees ADDITIONAL RECOMMENDATIONS: * Per SNF: HT=63", CU=124bmv -> rec calibrated bedscale wt * Pt on Nepro [employer], possible h/o electrolyte imbalance -> monitor lytes closely (K low at this time) * COMMUNICATIONS LEAD eval for oral grat if appropriate * F/up w/ WC eval-> add [place]LIN in 4oz H20 BID via GT (21) JAVIER (acute kidney injury) (22) Elevated alkaline phosphatase level Assessment & Plan: noted on labs trend US ordered will follow with recs thank you (23) Acute encephalopathy (24) GT CLOGGED (25) Sacral decubitus ulcer, stage IV Assessment & Plan: Pt presented on admission with Full thickness stage 4 Sacral Pressure injury which extends into R gluteal cheek. Base of wound is granular with bone exposure at base of sacrococcygeal.(L)10.5cm x (W06.5cm x (D) 2.8cm , undermining 11-3 by 3.6cm @12 o'clock. small amt serosanguineous exudate noted . [place] epithelial along edges bordered by darker skin tone without erythema. Resolving Pressure injury L ischium. Base of wound is 95% pink epithelial ,5% noni at center base of wound. No exudate noted. Both heels are boggy with non-Blanching erythema. Tx.plan: Cleanse Sacral wound with Saline. Loosely pack with Hydrogel impregnated Kerlix. Apply Moisture Barrier Periwound. Cover with Optifoam drsg Daily and prn. Apply Moisture Barrier paste to L Ischium. Cover with Optifoam drsg. Changee very 3 days and prn. Apply Cavilon Skin Barrier to both heels. Cover each heel with Optifoam drsgs. Change every 7 days and prn. Reposition at least every 2hours or as tolerated. Off-load heels with pillow. APM/JENNIFER Mattress overlay. Lane Saavedra Oct 06, 2019 10:02
[2019-10-06] MEDS: fentaNYL 2500mcg/NS 250ml 250 ML IV SCH ×2 (10:03→12:25)
--- NOTE | 2019-10-06 10:25 | Nephrology Progress Note ---
Assessment/Plan Problem List: (1) JAVIER (acute kidney injury) (2) Renal failure (ARF), acute on chronic (3) Dehydration (4) Electrolyte imbalance (5) Anemia (6) Respiratory failure, acute and chronic (7) COPD with exacerbation Assessment Patient is presented with sepsis and pneumonia and UTI Patient has acute renal failure, possible underlying chronic kidney failure Severe anemia Electrolyte imbalances: Hyponatremia, hypo-kalemia Chronic respiratory failure, COPD exacerbation Plan October 05: Lab reviewed. Serum creatinine rising. Blood pressure stabilized. Will recheck lab tomorrow. Dialysis as needed. Will increase lisinopril to 10 mg twice a day. October 04: Lab reviewed. Blood pressure medication adjusted since the patient is hypotensive. Serum creatinine rising. Recheck labs tomorrow. Dialysis as needed. Discussed with RN. October 03: Lab reviewed. Zestril added to BP medication. 1 dose of Seroquel ordered for agitation. Continue to monitor renal parameters. Continue per consultants. October 02: Lab reviewed. Potassium supplement IV given. 3% saline 250 cc ordered. Responded well to Zaroxolyn yesterday. Will continue to monitor electrolytes and renal parameters. Will increase minoxidil to 2.5 mg every 6 hours. October 01: Labs reviewed. Potassium supplement given. Last dialysis September 29. Serum creatinine rising gradually. Urine output very low. Patient appears to continue to need dialysis at least twice a week. Blood pressure still running high I will switch the hydralazine to minoxidil. We will give 1 dose of Zaroxolyn 10 mg today. Will check renal parameters tomorrow. September 30: Patient dialyzed yesterday. 3 L removed. Labs reviewed. Potassium supplement given. Continue per consultants. It appears that the patient required dialysis 2-3 times a week. September 29: Lab reviewed. Chest x-ray result noted. Continues to have pulmonary congestion. Urine output low. Will attempt dialysis again today with ultrafiltration. September 28: Lab reviewed. ABG reviewed. Potassium supplement given. No dialysis at this point. Will eval patient status and renal parameters daily. September 27: Lab reviewed. Last dialysis September 25. Continue to monitor renal parameters. Hemodialysis as needed. September 26: Lab reviewed. Dialyzed yesterday. Potassium supplement given. Medication list reviewed. Will observe renal parameters and arrange for dialysis as needed. September 25: Lab reviewed. Currently on hemodialysis. Tolerating well. Stable from renal standpoint of view. Blood pressure medication adjusted by increasing hydralazine. September 24: Lab reviewed. ABG reviewed. Both lab and ABG much improved. Patient was dialyzed yesterday. We will attempt dialysis tomorrow again. Will adjust that blood pressure medication dosages. September 23: Lab reviewed. ABG reviewed. Patient acidotic. IV bicarb 1 dose is given. Patient has dialysis catheter. Will order dialysis for ultrafiltration and correction of acid-base. Discussed with ERASMO Mohr. September 22: Labs reviewed. Potassium high. Kayexalate and Reglan given. Will discuss with the consultants regarding initiation of dialysis. September 21: Patient is being sedated. Labs reviewed. Potassium supplement discontinued. GFR 20. Continue per current treatment plan. Dialysis and ultrafiltration is a consideration. September 20: Patient periodically agitated. Labs reviewed. Creatinine 2.4. Medication reviewed. Continue per consultants. Calculated creatinine clearance 21. May need isolated ultrafiltration on dialysis. Will discuss with PMD. Meanwhile hemoglobin is lower, defer transfusion to PMD. September 19: DC IV fluid. Zaroxolyn via GT tube. Potassium supplement. Attempt to diurese. Chest CT as bilateral pleural effusion. If diuresis unsuccessful, will consider dialysis and ultrafiltration. September 18: Potassium supplement IV given. Hemoglobin stable. Patient remains full code. Continue per consultants. Previously: Potassium supplement IV Slow IV hydration Epogen subcu Adjust blood pressure medication IV fluid, rate adjusted Norman catheter, intake and output Monitor renal parameters Avoid nephrotoxic's Antibiotics Per orders 2D echocardiogram Kidney ultrasound Subjective ROS Limited/Unobtainable: Yes Objective Objective Last 24 Hour Vital Signs Date Time Temp Pulse Resp B/P (MAP) Pulse Ox O2 Delivery O2 Flow Rate FiO2 10/06/19 10:03 20 155/101 Mechanical Ventilator 100 10/06/19 09:30 60 17 155/101 (119) 98 10/06/19 09:11 62 20 100 10/06/19 09:00 60 20 118/52 (74) 97 10/06/19 08:30 60 20 131/52 (78) 96 10/06/19 08:29 60 115/50 10/06/19 08:27 115/50 10/06/19 08:00 Mechanical Ventilator Mechanical Ventilator 10/06/19 08:00 98.2 60 20 115/50 (71) 96 10/06/19 07:30 60 20 131/53 (79) 96 10/06/19 07:25 60 20 96 Mechanical Ventilator 100 61 20 100 10/06/19 07:00 63 20 135/54 (81) 98 10/06/19 07:00 20 135/54 Mechanical Ventilator 100 10/06/19 06:30 61 20 129/49 (75) 98 10/06/19 06:00 59 20 120/47 (71) 96 10/06/19 06:00 20 120/47 Mechanical Ventilator 100 10/06/19 05:52 62 127/53 10/06/19 05:30 57 20 127/53 (77) 97 10/06/19 05:07 57 20 100 10/06/19 05:00 58 20 126/50 (75) 97 10/06/19 05:00 20 126/50 Mechanical Ventilator 100 10/06/19 04:30 57 20 123/49 (73) 96 10/06/19 04:00 98.1 61 21 138/75 (96) 95 10/06/19 04:00 21 138/75 Mechanical Ventilator 100 10/06/19 04:00 61 10/06/19 04:00 Mechanical Ventilator Mechanical Ventilator 10/06/19 04:00 100 10/06/19 03:30 63 19 119/50 (73) 94 10/06/19 03:00 61 20 115/48 (70) 94 10/06/19 03:00 20 115/48 Mechanical Ventilator 100 10/06/19 02:57 61 20 100 10/06/19 02:30 62 20 114/43 (66) 94 10/06/19 02:00 20 106/44 Mechanical Ventilator 100 10/06/19 02:00 62 20 106/44 (64) 95 10/06/19 01:30 64 19 116/45 (68) 96 10/06/19 01:20 64 24 95 Mechanical Ventilator 100 62 20 100 10/06/19 01:00 64 20 113/45 (67) 94 10/06/19 01:00 20 113/45 Mechanical Ventilator 100 10/06/19 00:30 62 20 108/44 (65) 93 10/06/19 00:00 Mechanical Ventilator Mechanical Ventilator 10/06/19 00:00 100 10/06/19 00:00 20 112/45 Mechanical Ventilator 100 8/23/20 00:00 62 10/06/19 00:00 98.5 62 20 112/45 (67) 94 10/05/19 23:53 68 134/57 10/05/19 23:30 64 17 134/57 (82) 93 10/05/19 23:17 59 20 100 10/05/19 23:00 64 24 115/66 (82) 92 10/05/19 23:00 24 115/66 Mechanical Ventilator 100 10/05/19 22:30 62 20 114/50 (71) 93 10/05/19 22:00 62 20 123/53 (76) 94 10/05/19 22:00 20 123/53 Mechanical Ventilator 100 10/05/19 21:44 62 20 100 10/05/19 21:30 62 20 126/52 (76) 96 10/05/19 21:00 21 142/63 Mechanical Ventilator 100 10/05/19 21:00 69 21 142/63 (89) 96 10/05/19 20:41 20 131/52 Mechanical Ventilator 100 10/05/19 20:39 65 131/52 10/05/19 20:30 65 20 131/52 (78) 97 10/05/19 20:00 98.5 65 20 125/49 (74) 96 10/05/19 20:00 Mechanical Ventilator Mechanical Ventilator 10/05/19 20:00 20 125/49 Mechanical Ventilator 100 10/05/19 20:00 100 10/05/19 19:49 64 20 98 Mechanical Ventilator 100 62 20 100 10/05/19 19:30 63 20 122/52 (75) 96 10/05/19 19:09 64 10/05/19 19:00 63 20 123/49 (73) 96 10/05/19 19:00 20 123/49 Mechanical Ventilator 100 10/05/19 18:30 61 20 119/49 (72) 96 10/05/19 18:00 20 111/53 Mechanical Ventilator 100 10/05/19 18:00 62 20 111/53 (72) 96 10/05/19 17:30 64 20 105/46 (65) 95 10/05/19 17:28 63 103/47 10/05/19 17:14 64 20 100 10/05/19 17:00 64 20 103/47 (65) 96 10/05/19 17:00 20 103/47 Mechanical Ventilator 100 10/05/19 16:30 65 20 114/46 (68) 96 10/05/19 16:00 99.2 67 20 116/49 (71) 97 10/05/19 16:00 100 10/05/19 16:00 20 116/49 Mechanical Ventilator 100 10/05/19 16:00 68 10/05/19 16:00 Mechanical Ventilator Mechanical Ventilator 10/05/19 15:55 99.2 10/05/19 15:30 71 26 117/93 (101) 91 10/05/19 15:00 20 144/83 Mechanical Ventilator 100 10/05/19 15:00 71 26 144/83 (103) 89 10/05/19 14:57 72 25 100 10/05/19 14:30 65 20 116/45 (68) 91 10/05/19 14:00 20 96/38 Mechanical Ventilator 100 10/05/19 14:00 59 20 98/38 (58) 91 10/05/19 13:30 61 20 102/44 (63) 93 10/05/19 13:08 60 20 92 Mechanical Ventilator 100 61 20 100 10/05/19 13:00 20 95/39 Mechanical Ventilator 100 10/05/19 13:00 61 20 95/39 (57) 93 10/05/19 12:30 65 10 111/45 (67) 95 10/05/19 12:00 100 10/05/19 12:00 20 98/40 Mechanical Ventilator 100 10/05/19 12:00 98.7 63 20 98/40 (59) 91 10/05/19 12:00 64 10/05/19 12:00 Mechanical Ventilator Mechanical Ventilator 10/05/19 11:41 66 111/45 10/05/19 11:30 67 18 111/45 (67) 95 10/05/19 11:00 68 21 112/54 (73) 96 10/05/19 11:00 20 112/34 Mechanical Ventilator 100 10/05/19 10:50 65 20 100 10/05/19 10:30 69 20 105/44 (64) 95 Intake and Output 10/05/19 10/06/19 19:00 07:00 Intake Total 926 ml 946 ml Output Total 60 ml 25 ml Balance 866 ml 921 ml Intake Free Water 200 ml IV Total 216 ml 216 ml Tube Feeding 480 ml 480 ml Other 30 ml 250 ml Output Urine Total 60 ml 25 ml # Bowel Movements 2 Laboratory Tests 10/06/19 04:20: White Blood Count 7.1, Red Blood Count 2.80L, Hemoglobin 8.5L, Hematocrit 27.2L , Mean Corpuscular Volume 97, Mean Corpuscular Hemoglobin 30.4, Mean Corpuscular Hemoglobin Concent 31.3L, Red Cell Distribution Width 14.5, Platelet Count 402, Mean Platelet Volume 5.6L, Neutrophils (%) (Auto) 62.8, Lymphocytes (%) (Auto) 23.7, Monocytes (%) (Auto) 7.5, Eosinophils (%) (Auto) 4.4H, Basophils (%) (Auto) 1.6 10/06/19 05:30: Sodium Level 140, Potassium Level 4.0, Chloride Level 102, Carbon Dioxide Level 27, Anion Gap 11, Blood Urea Nitrogen 74H, Creatinine 3.1H, Estimat Glomerular Filtration Rate 16.1, Glucose Level 76, Calcium Level 8.5, Phosphorus Level 5.2H , Magnesium Level 2.8H, Total Bilirubin 0.2, Aspartate Amino Transf (AST/SGOT) 19, Alanine Aminotransferase (ALT/SGPT) < 6L, Alkaline Phosphatase 142H, Total Protein 6.1L, Albumin 1.6L, Globulin 4.5, Albumin/Globulin Ratio 0.4L Height (Feet): 5 Height (Inches): 5.00 Weight (Pounds): 142 General Appearance: no apparent distress EENT: other - On mechanical ventilation Cardiovascular: normal rate Respiratory/Chest: decreased breath sounds Abdomen: distended Objective No change Johnny Houston MD Oct 06, 2019 10:25
[2019-10-06] MEDS ORDERED: fentaNYL 2500mcg/NS 250ml 250 ML IV SCH (12:00)
--- NOTE | 2019-10-06 13:00 | Hematology/Onc Progress Note ---
Assessment/Plan Assessment/Plan Assessment and Recs # Leukocytosis, now with gram positive bacteremias well as pna noted --> historically --> PPM site (pocket) infection (redness and pain, bacteremia) and likely pocket abscess - no vegetation seen on ABBIE --> is s'p pm removal and also pocket infection is better --> per cards recs in re to tach/davis --> wbc 15-->19-->17-->15-->13->12-->13-->12>13-->18-->9-->7 --> ABX cefepime/levaquin--> vanc/angelo --> ID recs are noted # Anemia of chronic disease due to underlying chronic medical issues, multifactorial --> Anemia workup has been reviewed, cw acd --> No evidence of hemolysis is noted, peripheral smear has been reviewed. --> Hgb goal >7. Transfuse prn. --> Epogen started --> Medications have been reviewed --> low threshold for gi evaluation in case has occult + --> hgb 7.1-->7.8-->8.9->9.2-->8.5-->9.7-->10-->8.8-->9.6-->8.7->8.6-->7.2->8.7- >9.1-->9.2-->9 --> 1 unit prbc 09/27 # Thrombocytois is likely reactive process, is s/p infection --> plt trend 610k-->706k-->354 --> p smear reviewed # Acute hypoxic respiratory failure s/p intubation 11/23- ?ARDS --> on vent/trach # Gram positive bacteremia- real bacteremia- 2ry to above and probable PNA --> per id care # JAVIER initially >2 --> now improved with D5w # Dysphagia s/p peg # Thoracic aortic dissection s/p repair early 2017 # Psychiatric history on ativan/haldol # [place] resident # Dvt ppx heparin sq The timing of this note does not necessarily reflect the time of the patient was seen. Greatly appreciate consultation. Subjective Constitutional: Denies: no symptoms, chills, fever, malaise, weakness, other HEENT: Denies: no symptoms, eye pain, blurred vision, tearing, double vision, ear pain, ear discharge, nose pain, nose congestion, throat pain, throat swelling, mouth pain, mouth swelling, other Cardiovascular: Denies: no symptoms, chest pain, edema, irregular heart rate, lightheadedness, palpitations, syncope, other Gastrointestinal/Abdominal: Denies: no symptoms, abdomen distended, abdominal pain, black stools, tarry stools, blood in stool, constipated, diarrhea, difficulty swallowing, nausea, poor appetite, poor fluid intake, rectal bleeding , vomiting, other Neurologic/Psychiatric: Denies: no symptoms, anxiety, depressed, emotional problems, headache, numbness, paresthesia, pre-existing deficit, seizure, tingling, tremors, weakness, other Endocrine: Denies: no symptoms, excessive sweating, flushing, intolerance to cold, intolerance to heat, increased hunger, increased thirst, increased urine, unexplained weight gain, unexplained weight loss, other Allergies: Coded Allergies: No Known Allergies (Unverified , 10/10/17) Subjective 09/16 on vent now, consulted in am pulm, on vent setting, labs noted, hep sq 09/17 meds noted, cbc noted, labs noted, no bleeding 09/18 is to undergo potential v/q scan given abg, labs noted, resless, on ativan, to get haldol today, roman ramesh 09/19 remains agitated, covering, with sacral wound seeping, likely cause of anemia, roman ramesh 09/26 restless, remains agitated, gtube ripped, eval with rn, and vosoghi consulted 09/27 remains on vent, agitated, seen by gi, hgb low, roman George to transfuse 1 unit prbc 09/28 meds noted, no bleeding, on vent, s/p blood tranfusion, cbc pending, roman ramesh 09/29 remains in the icu, roman rn in the am, agitated, on versed, fentanyl, restraints 09/30 in icu, trach to vent, on gtube feeds, fentanyl, agitated 10/01 in icu, roman Ayoub rn, no bleeding, sleeping, labs noted, hgb >9 10/02 sedated in icu, is on vent, roman ramesh, more alert and more conversive with face grimaces 10/03 labs have been reviewed, no bleeding, icu, meds reviewed, on fentanyl and versed, to consult psych 10/05 remains on fentanyl, also with restraints, no bleeding, cbc ordered Objective Objective Current Medications Medications (Trade) Dose Ordered Sig/Penny Route PRN Reason Start Time Stop Time Status Last Admin Dose Admin Acetaminophen (Tylenol) 325 mg Q6H PRN GT Temp >100.5 09/23/19 10:45 10/23/19 10:44 09/23/19 18:55 Albuterol/ Ipratropium (Albuterol/ Ipratropium) 3 ml Q6HRT HHN 10/04/19 13:00 10/09/19 12:59 10/06/19 07:15 Ascorbic Acid (Vitamin C) 500 mg DAILY ORAL 10/06/19 09:00 11/05/19 08:59 10/06/19 08:27 Chlorhexidine Gluconate (Ling-Hex 2%) 1 applic DAILY@2000 TOPIC 09/23/19 20:00 12/22/19 19:59 10/05/19 19:47 Dextrose (Dextrose 50%) 25 ml Q30M PRN IV Hypoglycemia 10/05/19 18:30 01/03/20 18:29 Dextrose (Dextrose 50%) 50 ml Q30M PRN IV Hypoglycemia 10/05/19 18:30 01/03/20 18:29 Diltiazem HCl (Cardizem Tab) 60 mg Q6HR GT 10/04/19 18:00 11/03/19 17:59 10/06/19 05:52 Docusate Sodium (Colace) 100 mg Q8H GT 09/29/19 08:30 10/29/19 08:29 10/06/19 08:27 Epoetin Gelacio (Epoetin Gelacio(ESRD on dialysis)) 10,000 unit MON-MON-MON SUBQ 09/25/19 21:00 12/24/19 20:59 10/04/19 20:59 Fentanyl Citrate 250 ml @ 0 mls/hr Q24H IV 10/06/19 12:30 10/08/19 11:59 10/06/19 12:25 Heparin Sodium (Porcine) (Heparin 5000 units/ml) 5,000 units EVERY 12 HOURS SUBQ 09/17/19 21:00 10/30/19 08:59 10/06/19 08:30 Hydralazine HCl (Apresoline) 10 mg Q4H PRN IV BP over 160 systolic 09/17/19 11:15 12/14/19 11:14 10/04/19 09:04 Insulin Aspart (NovoLOG) Q6HR SUBQ 10/06/19 00:00 01/03/20 20:59 Lactulose (Cephulac) 10 gm THREE TIMES A DAY ORAL 10/03/19 13:00 11/02/19 12:59 10/06/19 08:27 Lansoprazole (Prevacid) 30 mg Q12HR GT 09/27/19 21:00 10/27/19 20:59 10/06/19 08:27 Lisinopril (ZestriL) 10 mg BID GT 10/06/19 18:00 11/03/19 13:29 Metoclopramide HCl (Reglan) 10 mg Q8H IVP 09/29/19 14:00 10/29/19 13:59 10/06/19 05:52 Metoprolol Tartrate (Lopressor) 50 mg EVERY 12 HOURS GT 10/04/19 21:00 12/14/19 20:59 10/06/19 08:29 Midazolam HCl (Versed 2mg/2ml vial) 1 mg Q4H PRN IVP For Anxiety 09/21/19 09:30 12/20/19 09:29 10/04/19 14:47 Minoxidil (Loniten) 2.5 mg Q6HR PRN GT BP OVER 170 SYST 10/05/19 08:30 12/31/19 13:59 Polyethylene Glycol (Miralax) 17 gm BEDTIME ORAL 10/01/19 21:00 10/31/19 20:59 10/05/19 20:37 Risperidone (RisperDAL) 2 mg BEDTIME ORAL 10/05/19 21:00 11/19/19 20:59 10/05/19 20:37 Sertraline HCl (Zoloft) 100 mg BEDTIME GT 09/17/19 21:00 10/15/19 20:59 10/05/19 20:38 Sorbitol (sorbitoL) 30 ml EVERY 6 HOURS PRN GT Constipation 09/29/19 18:00 10/29/19 17:59 10/01/19 00:44 Tramadol HCl (Ultram) 25 mg Q6H GT 10/04/19 20:45 10/11/19 20:44 10/06/19 08:28 Vitamin B Complex/ Vit C/Folic Acid (Nephrovite) 1 tab DAILY ORAL 10/06/19 09:00 11/05/19 08:59 10/06/19 08:27 Zinc Sulfate (Zinc Sulfate) 220 mg DAILY ORAL 10/06/19 09:00 10/16/19 08:59 10/06/19 08:27 Last 24 Hour Vital Signs Date Time Temp Pulse Resp B/P (MAP) Pulse Ox O2 Delivery O2 Flow Rate FiO2 10/06/19 12:25 20 120/48 Mechanical Ventilator 100 10/06/19 12:00 100 10/06/19 12:00 Mechanical Ventilator Mechanical Ventilator 10/06/19 11:34 56 117/46 10/06/19 11:00 20 127/68 Mechanical Ventilator 100 10/06/19 11:00 63 20 127/68 (87) 94 10/06/19 10:47 60 20 100 10/06/19 10:30 65 20 127/54 (78) 95 10/06/19 10:03 20 155/101 Mechanical Ventilator 100 10/06/19 10:00 61 20 140/56 (84) 99 10/06/19 10:00 20 140/56 Mechanical Ventilator 100 10/06/19 09:30 60 17 155/101 (119) 98 10/06/19 09:11 62 20 100 10/06/19 09:00 20 118/52 Mechanical Ventilator 100 10/06/19 09:00 60 20 118/52 (74) 97 10/06/19 08:30 60 20 131/52 (78) 96 10/06/19 08:29 60 115/50 10/06/19 08:27 115/50 10/06/19 08:00 100 10/06/19 08:00 20 115/50 Mechanical Ventilator 100 10/06/19 08:00 Mechanical Ventilator Mechanical Ventilator 10/06/19 08:00 98.2 60 20 115/50 (71) 96 10/06/19 07:30 60 20 131/53 (79) 96 10/06/19 07:25 60 20 96 Mechanical Ventilator 100 61 20 100 10/06/19 07:00 63 20 135/54 (81) 98 10/06/19 07:00 20 135/54 Mechanical Ventilator 100 10/06/19 06:30 61 20 129/49 (75) 98 10/06/19 06:00 59 20 120/47 (71) 96 10/06/19 06:00 20 120/47 Mechanical Ventilator 100 10/06/19 05:52 62 127/53 10/06/19 05:30 57 20 127/53 (77) 97 10/06/19 05:07 57 20 100 10/06/19 05:00 58 20 126/50 (75) 97 10/06/19 05:00 20 126/50 Mechanical Ventilator 100 10/06/19 04:30 57 20 123/49 (73) 96 10/06/19 04:00 98.1 61 21 138/75 (96) 95 10/06/19 04:00 21 138/75 Mechanical Ventilator 100 10/06/19 04:00 61 10/06/19 04:00 Mechanical Ventilator Mechanical Ventilator 10/06/19 04:00 100 10/06/19 03:30 63 19 119/50 (73) 94 10/06/19 03:00 61 20 115/48 (70) 94 10/06/19 03:00 20 115/48 Mechanical Ventilator 100 10/06/19 02:57 61 20 100 10/06/19 02:30 62 20 114/43 (66) 94 10/06/19 02:00 20 106/44 Mechanical Ventilator 100 10/06/19 02:00 62 20 106/44 (64) 95 10/06/19 01:30 64 19 116/45 (68) 96 10/06/19 01:20 64 24 95 Mechanical Ventilator 100 62 20 100 10/06/19 01:00 64 20 113/45 (67) 94 10/06/19 01:00 20 113/45 Mechanical Ventilator 100 10/06/19 00:30 62 20 108/44 (65) 93 10/06/19 00:00 Mechanical Ventilator Mechanical Ventilator 10/06/19 00:00 100 10/06/19 00:00 20 112/45 Mechanical Ventilator 100 10/06/19 00:00 62 10/06/19 00:00 98.5 62 20 112/45 (67) 94 10/05/19 23:53 68 134/57 10/05/19 23:30 64 17 134/57 (82) 93 10/05/19 23:17 59 20 100 10/05/19 23:00 64 24 115/66 (82) 92 10/05/19 23:00 24 115/66 Mechanical Ventilator 100 10/05/19 22:30 62 20 114/50 (71) 93 10/05/19 22:00 62 20 123/53 (76) 94 10/05/19 22:00 20 123/53 Mechanical Ventilator 100 10/05/19 21:44 62 20 100 10/05/19 21:30 62 20 126/52 (76) 96 10/05/19 21:00 21 142/63 Mechanical Ventilator 100 10/05/19 21:00 69 21 142/63 (89) 96 10/05/19 20:41 20 131/52 Mechanical Ventilator 100 10/05/19 20:39 65 131/52 10/05/19 20:30 65 20 131/52 (78) 97 10/05/19 20:00 98.5 65 20 125/49 (74) 96 10/05/19 20:00 Mechanical Ventilator Mechanical Ventilator 10/05/19 20:00 20 125/49 Mechanical Ventilator 100 10/05/19 20:00 100 10/05/19 19:49 64 20 98 Mechanical Ventilator 100 62 20 100 10/05/19 19:30 63 20 122/52 (75) 96 10/05/19 19:09 64 10/05/19 19:00 63 20 123/49 (73) 96 10/05/19 19:00 20 123/49 Mechanical Ventilator 100 10/05/19 18:30 61 20 119/49 (72) 96 10/05/19 18:00 20 111/53 Mechanical Ventilator 100 10/05/19 18:00 62 20 111/53 (72) 96 10/05/19 17:30 64 20 105/46 (65) 95 10/05/19 17:28 63 103/47 10/05/19 17:14 64 20 100 10/05/19 17:00 64 20 103/47 (65) 96 10/05/19 17:00 20 103/47 Mechanical Ventilator 100 10/05/19 16:30 65 20 114/46 (68) 96 10/05/19 16:00 99.2 67 20 116/49 (71) 97 10/05/19 16:00 100 8/22/20 16:00 20 116/49 Mechanical Ventilator 100 10/05/19 16:00 68 10/05/19 16:00 Mechanical Ventilator Mechanical Ventilator 10/05/19 15:55 99.2 10/05/19 15:30 71 26 117/93 (101) 91 10/05/19 15:00 20 144/83 Mechanical Ventilator 100 10/05/19 15:00 71 26 144/83 (103) 89 10/05/19 14:57 72 25 100 10/05/19 14:30 65 20 116/45 (68) 91 10/05/19 14:00 20 96/38 Mechanical Ventilator 100 10/05/19 14:00 59 20 98/38 (58) 91 10/05/19 13:30 61 20 102/44 (63) 93 10/05/19 13:08 60 20 92 Mechanical Ventilator 100 61 20 100 10/05/19 13:00 20 95/39 Mechanical Ventilator 100 10/05/19 13:00 61 20 95/39 (57) 93 10/05/19 12:30 65 10 111/45 (67) 95 10/05/19 12:00 100 10/05/19 12:00 20 98/40 Mechanical Ventilator 100 10/05/19 12:00 98.7 63 20 98/40 (59) 91 10/05/19 12:00 64 10/05/19 12:00 Mechanical Ventilator Mechanical Ventilator 10/05/19 11:41 66 111/45 10/05/19 11:30 67 18 111/45 (67) 95 10/05/19 11:00 68 21 112/54 (73) 96 10/05/19 11:00 20 112/34 Mechanical Ventilator 100 10/05/19 10:50 65 20 100 10/05/19 10:30 69 20 105/44 (64) 95 10/05/19 10:00 71 19 93/35 (54) 97 10/05/19 10:00 20 93/35 Mechanical Ventilator 100 10/05/19 09:30 72 19 109/45 (66) 96 10/05/19 09:00 20 110/45 Mechanical Ventilator 100 10/05/19 09:00 73 21 110/45 (66) 94 10/05/19 08:55 117/41 10/05/19 08:54 73 117/41 10/05/19 08:40 70 20 100 10/05/19 08:30 71 20 117/41 (66) 94 10/05/19 08:00 98.9 75 21 148/63 (91) 98 10/05/19 08:00 68 10/05/19 08:00 20 148/63 Mechanical Ventilator 100 10/05/19 08:00 Mechanical Ventilator Mechanical Ventilator 10/05/19 08:00 100 10/05/19 07:30 71 19 138/60 (86) 94 10/05/19 07:24 63 20 98 Mechanical Ventilator 100 74 24 100 10/05/19 07:00 63 20 97/42 (60) 94 10/05/19 07:00 20 97/42 Mechanical Ventilator 100 10/05/19 06:30 63 20 97/42 (60) 94 10/05/19 06:21 20 97/39 Mechanical Ventilator 50.0 100 10/05/19 06:20 20 97/42 Mechanical Ventilator 100 10/05/19 06:00 62 20 99/45 (63) 94 10/05/19 06:00 20 97/42 Mechanical Ventilator 100 10/05/19 05:45 63 97/39 10/05/19 05:45 97/39 10/05/19 05:30 62 20 95/38 (57) 93 10/05/19 05:00 63 20 97/39 (58) 91 10/05/19 05:00 20 97/39 Mechanical Ventilator 100 10/05/19 04:30 63 20 103/45 (64) 94 10/05/19 04:30 20 92/43 Mechanical Ventilator 80 10/05/19 04:15 20 92/43 Mechanical Ventilator 80 10/05/19 04:00 80 10/05/19 04:00 62 10/05/19 04:00 Mechanical Ventilator Mechanical Ventilator 10/05/19 04:00 20 92/43 Mechanical Ventilator 80 10/05/19 04:00 98.4 62 20 92/43 (59) 95 10/05/19 03:30 62 18 109/43 (65) 97 10/05/19 03:29 62 20 100 10/05/19 03:00 62 20 100/43 (62) 98 10/05/19 03:00 21 100/43 Mechanical Ventilator 100 10/05/19 02:30 63 20 105/44 (64) 98 10/05/19 02:00 20 97/45 Mechanical Ventilator 100 10/05/19 02:00 66 20 97/45 (62) 94 10/05/19 01:30 62 20 93/41 (58) 95 10/05/19 01:27 61 20 100 Mechanical Ventilator 100 62 20 40 10/05/19 01:00 20 96/41 Mechanical Ventilator 100 10/05/19 01:00 60 20 96/41 (59) 95 10/05/19 00:30 61 20 106/44 (64) 98 10/05/19 00:00 65 10/05/19 00:00 98.2 67 20 132/55 (80) 100 10/05/19 00:00 21 132/55 Mechanical Ventilator 100 10/05/19 00:00 Mechanical Ventilator Mechanical Ventilator 10/04/19 23:49 67 185/73 10/04/19 23:49 180/73 10/04/19 23:48 69 20 100 10/04/19 23:35 72 21 185/73 (110) 98 10/04/19 23:30 71 21 188/82 (117) 96 10/04/19 23:00 60 20 127/74 (91) 97 10/04/19 23:00 21 188/82 Mechanical Ventilator 100 10/04/19 22:30 60 20 115/51 (72) 96 10/04/19 22:00 60 20 105/45 (65) 96 10/04/19 22:00 20 105/45 Mechanical Ventilator 100 10/04/19 21:30 61 20 104/44 (64) 96 10/04/19 21:00 63 20 107/44 (65) 93 10/04/19 21:00 20 107/44 Mechanical Ventilator 100 10/04/19 20:30 71 20 120/47 (71) 97 10/04/19 20:13 92 143/66 10/04/19 20:13 20 140/60 Mechanical Ventilator 50.0 100 10/04/19 20:12 20 140/60 Mechanical Ventilator 100 10/04/19 20:00 86 10/04/19 20:00 Mechanical Ventilator Mechanical Ventilator 10/04/19 20:00 100 10/04/19 20:00 20 140/60 Mechanical Ventilator 100 10/04/19 20:00 78 20 140/60 (86) 99 10/04/19 20:00 99.0 78 20 140/60 (86) 99 10/04/19 19:49 92 28 95 Mechanical Ventilator 100 84 20 40 10/04/19 19:30 78 20 143/66 (91) 98 10/04/19 19:00 23 155/94 Mechanical Ventilator 50 10/04/19 19:00 86 19 155/94 (114) 99 10/04/19 18:30 74 19 115/46 (69) 96 10/04/19 18:00 20 130/75 Mechanical Ventilator 50 10/04/19 18:00 78 20 130/50 (76) 10/04/19 17:32 102 185/69 10/04/19 17:32 185/69 10/04/19 17:30 88 21 130/85 (100) 98 10/04/19 17:24 103 24 100 10/04/19 17:18 99 22 175/76 (109) 94 10/04/19 17:00 113 23 190/82 (118) 91 10/04/19 17:00 23 175/76 Mechanical Ventilator 50 10/04/19 16:35 102 21 185/69 (107) 93 10/04/19 16:30 119 35 219/73 (121) 90 10/04/19 16:00 99.0 87 21 136/58 (84) 90 10/04/19 16:00 50 10/04/19 16:00 20 136/58 Non-Rebreather 50 10/04/19 16:00 86 10/04/19 16:00 Mechanical Ventilator Mechanical Ventilator 10/04/19 15:30 101 22 189/71 (110) 94 10/04/19 15:00 21 188/69 Mechanical Ventilator 50 10/04/19 15:00 96 24 181/81 (114) 90 10/04/19 14:48 105 22 50 10/04/19 14:47 159/69 10/04/19 14:30 96 18 172/68 (102) 94 10/04/19 14:00 102 22 196/77 (116) 93 10/04/19 14:00 21 196/77 Mechanical Ventilator 50 10/04/19 13:30 98 19 189/82 (117) 92 10/04/19 13:09 110 36 100 Mechanical Ventilator 40 85 20 40 10/04/19 13:00 22 182/82 Mechanical Ventilator 50 10/04/19 13:00 83 17 159/69 (99) 98 Intake and Output 10/05/19 10/06/19 19:00 07:00 Intake Total 926 ml 946 ml Output Total 60 ml 25 ml Balance 866 ml 921 ml Intake Free Water 200 ml IV Total 216 ml 216 ml Tube Feeding 480 ml 480 ml Other 30 ml 250 ml Output Urine Total 60 ml 25 ml # Bowel Movements 2 Labs Test 10/04/19 05:43 10/05/19 05:00 10/05/19 08:20 10/06/19 04:20 White Blood Count 6.1 K/UL (4.8-10.8) 7.0 K/UL (4.8-10.8) 7.1 K/UL (4.8-10.8) Red Blood Count 2.95 M/UL (4.20-5.40) 2.74 M/UL (4.20-5.40) 2.80 M/UL (4.20-5.40) Hemoglobin 9.0 G/DL (12.0-16.0) 8.4 G/DL (12.0-16.0) 8.5 G/DL (12.0-16.0) Hematocrit 28.3 % (37.0-47.0) 26.6 % (37.0-47.0) 27.2 % (37.0-47.0) Mean Corpuscular Volume 96 FL (80-99) 97 FL (80-99) 97 FL (80-99) Mean Corpuscular Hemoglobin 30.4 PG (27.0-31.0) 30.7 PG (27.0-31.0) 30.4 PG (27.0-31.0) Mean Corpuscular Hemoglobin Concent 31.7 G/DL (32.0-36.0) 31.6 G/DL (32.0-36.0) 31.3 G/DL (32.0-36.0) Red Cell Distribution Width 14.2 % (11.6-14.8) 14.4 % (11.6-14.8) 14.5 % (11.6-14.8) Platelet Count 354 K/UL (150-450) 377 K/UL (150-450) 402 K/UL (150-450) Mean Platelet Volume 5.6 FL (6.5-10.1) 5.9 FL (6.5-10.1) 5.6 FL (6.5-10.1) Neutrophils (%) (Auto) 62.5 % (45.0-75.0) 58.8 % (45.0-75.0) 62.8 % (45.0-75.0) Lymphocytes (%) (Auto) 22.6 % (20.0-45.0) 27.7 % (20.0-45.0) 23.7 % (20.0-45.0) Monocytes (%) (Auto) 8.3 % (1.0-10.0) 8.1 % (1.0-10.0) 7.5 % (1.0-10.0) Eosinophils (%) (Auto) 5.1 % (0.0-3.0) 3.7 % (0.0-3.0) 4.4 % (0.0-3.0) Basophils (%) (Auto) 1.5 % (0.0-2.0) 1.7 % (0.0-2.0) 1.6 % (0.0-2.0) Sodium Level 140 MMOL/L (136-145) 141 MMOL/L (136-145) Potassium Level 3.1 MMOL/L (3.5-5.1) 3.9 MMOL/L (3.5-5.1) Chloride Level 103 MMOL/L (98-107) 105 MMOL/L (98-107) Carbon Dioxide Level 28 MMOL/L (21-32) 27 MMOL/L (21-32) Anion Gap 10 mmol/L (5-15) 9 mmol/L (5-15) Blood Urea Nitrogen 67 mg/dL (7-18) 70 mg/dL (7-18) Creatinine 2.2 MG/DL (0.55-1.30) 2.7 MG/DL (0.55-1.30) Estimat Glomerular Filtration Rate 23.9 mL/min (>60) 18.9 mL/min (>60) Glucose Level 94 MG/DL (74-106) 70 MG/DL (74-106) Uric Acid 5.7 MG/DL (2.6-7.2) Calcium Level 8.5 MG/DL (8.5-10.1) 8.6 MG/DL (8.5-10.1) Phosphorus Level 4.8 MG/DL (2.5-4.9) 4.6 MG/DL (2.5-4.9) Magnesium Level 2.5 MG/DL (1.8-2.4) 2.7 MG/DL (1.8-2.4) Total Bilirubin 0.2 MG/DL (0.2-1.0) 0.3 MG/DL (0.2-1.0) Aspartate Amino Transf (AST/SGOT) 23 U/L (15-37) 21 U/L (15-37) Alanine Aminotransferase (ALT/SGPT) 7 U/L (12-78) 7 U/L (12-78) Alkaline Phosphatase 147 U/L (46-116) 126 U/L (46-116) C-Reactive Protein, Quantitative 9.4 mg/dL (0.00-0.90) 11.6 mg/dL (0.00-0.90) Total Protein 6.5 G/DL (6.4-8.2) 5.9 G/DL (6.4-8.2) Albumin 1.7 G/DL (3.4-5.0) 1.5 G/DL (3.4-5.0) Globulin 4.8 g/dL 4.4 g/dL Albumin/Globulin Ratio 0.4 (1.0-2.7) 0.3 (1.0-2.7) Pro-B-Type Natriuretic Peptide > 59725 pg/mL (0-125) Arterial Blood pH 7.419 (7.350-7.450) Arterial Blood Partial Pressure CO2 39.6 mmHg (35.0-45.0) Arterial Blood Partial Pressure O2 69.8 mmHg (75.0-100.0) Arterial Blood HCO3 25.1 mmol/L (22.0-26.0) Arterial Blood Oxygen Saturation 92.4 % (95-100) Arterial Blood Base Excess 0.6 (-2-2) Rojas Test Positive Test 10/06/19 05:30 Sodium Level 140 MMOL/L (136-145) Potassium Level 4.0 MMOL/L (3.5-5.1) Chloride Level 102 MMOL/L (98-107) Carbon Dioxide Level 27 MMOL/L (21-32) Anion Gap 11 mmol/L (5-15) Blood Urea Nitrogen 74 mg/dL (7-18) Creatinine 3.1 MG/DL (0.55-1.30) Estimat Glomerular Filtration Rate 16.1 mL/min (>60) Glucose Level 76 MG/DL (74-106) Calcium Level 8.5 MG/DL (8.5-10.1) Phosphorus Level 5.2 MG/DL (2.5-4.9) Magnesium Level 2.8 MG/DL (1.8-2.4) Total Bilirubin 0.2 MG/DL (0.2-1.0) Aspartate Amino Transf (AST/SGOT) 19 U/L (15-37) Alanine Aminotransferase (ALT/SGPT) < 6 U/L (12-78) Alkaline Phosphatase 142 U/L (46-116) Total Protein 6.1 G/DL (6.4-8.2) Albumin 1.6 G/DL (3.4-5.0) Globulin 4.5 g/dL Albumin/Globulin Ratio 0.4 (1.0-2.7) Height (Feet): 5 Height (Inches): 5.00 Weight (Pounds): 142 Objective Physical Exam: Vitals: reviewed General: NAD HEENT: nc, at Neck: supple ++tracn/vent Chest: clear breath sounds bilaterally Cardiovascular: RRR, no s3, s4 Abdomen: soft, nontender, nd +gtube Extremities: no cce, normal range of motion Neuro: alert Evan Muhammad MD Oct 06, 2019 13:00
--- NOTE | 2019-10-06 13:01 | Infectious Diseases Prog Note ---
Assessment/Plan 49yo F with: Acute hypoxic resp failure: Now on vent, worsening, FiO2 100% > 80% 09/27 Pneumonia, COVID19 neg x3 - worsening MDR PsA pneumonia 09/29 CXR: Bilateral edema versus infiltrates appears slightly worse than on the prior study. There is probably some pleural fluid on the left. 09/26 S/P thoracentesis, 900cc removed, only 67 WBC in fluid analysis, unlikely empyema 09/26 CXR: Worsening R perihilar opacity 09/26 BCx NTD 09/24 CXR: Previously demonstrated right lateral basilar lucency is no longer evident, was presumably a skin fold artifact. Bilateral infiltrates and left pleural effusion are probably unchanged allowing for slight differences in technique. 09/22 Resp cx + MDR PsA (S-gent; I-colistin; R-levofloxacin, Zosyn, angelo) 09/22 BCx NTD 09/22 CXR: worsening BL pna 09/22 UA w/ persistent pyuria, now on HD, UCx +VRE, most likely colonizer as improving wo tx for this 09/19 V/Q scan, low probability of PE 09/18 Rapid COVID PCR neg 09/18 CT chest: Markedly suboptimal examination due to lack of IV contrast material. Bilateral pleural effusions, right greater than left, with bilateral lower lobe consolidation or volume loss. Ground glass densities in the upper lobes bilaterally. This is not specific. Tracheostomy. Increased superior mediastinal density. Stability of adenopathy cannot be excluded. Atherosclerotic change. Gastrostomy. Ascites. Left renal stent with left hydronephrosis and renal atrophy. 09/17 Chest US: Trace right and small left pleural effusions. No safe window identified for bedside thoracentesis. Note that the majority of the left pleural effusion is subpulmonic. 09/16 CXR: Worsening of right lung infiltrates and right effusion. V. duplex: NO DVT D-dimer elevated 09/15 Rapid COVID PCR neg 09/15 Sp cx ESBL P. mirablis 09/14 CXR: Bilateral airspace opacities, preferentially involving the right lung, consistent with multifocal infiltrate. Trace bilateral pleural effusions. No pneumothorax. Rapid COVID PCR neg Urine legionella neg 09/16 GPC bacteremia, real vs contaminant; does have hx of infected PPM- could be a possibility- ro endocarditis 09/14 Bcx / S. epidermis; 09/15 Bcx NTD 2d echo: no vegetations seen UTI 09/14 u/a wbc tnct, nit neg, leuk +3; ucx >100k MDR P. stuarti (S Ceftriaxone, Meropenem) 09/22 UA w/ ongoing pyuria, unchanged Unstageable sacral ulceration Afebrile Leukocytosis, mild; fluctuates bt 12-13 JAVIER on CKD --> now on HD Renal US: Limited exam due to abdominal ascites and shadowing from bowel gas. CT recommended for more sensitive evaluation. Moderate right hydronephrosis. Increased renal parenchymal echogenicity suggesting intrinsic/ medical renal disease. Question indwelling left ureteral stent versus artifact. Bladder not visualized. 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 epi-11/2018, sp > 6weeks IV vancomycin 11/27 SP ABBIE: no evidence for vegetation on any of the valves 11/26/18 SP PPM removal: OR findings:The fibrous capsule enclosing the generator was then opened and there was a [id number] amount of yellowish fluid drainage. The generator was then removed.Atrial and ventricular leads were detached. The necrotic tissue of the pocket was then removed and the pocket was flushed with an antibiotic solution. Capsule, wound tissue and lead tip cx: Neg 2d echo: no vegetation seen US chest: 4.6 x 3.4 x 0.9 cm hypoechoic/anechoic area overlying left chest pacemaker power pack. This could represent either a discrete fluid collection or a focal area of very edematous tissue. Infected fluid pocket also possible. 11/18 Bcx 3/4 S. epi; 11/20 Bcx neg; 11/24 Bcx Neg; 11/27 Bcx Neg Hx of PNA 11/2019? sp cx PsA (arnett S), ABC (I Ceftriaxone; otherwise negative) Sp cx MRSA, ABC (I Ceftriaxone; otherwise S) PMH: Afib HTN Dysphagia sp GT Aortic dissection s/p repair 2017, S/p PPM Parkinson's Disease Schizophrenia Anxiety COPD Chronic resp failure s/p trach Hx of tracheal bleeding [place] resident ([facility]) Plan: Trend resp status, leukocytosis D/w micro about sending MDR PsA out for further sensi to [facility] and [facility], [facility] [place], sent out of Tuesday 09/26, d/w Micro today, won't have results until 10/06 ([phone]), f/u these results just for future reference Aggressive volume removal as tolerated by HD, BNP >35,000 10/03 SP Zerbaxa #6, gent #7 for MDR PsA pna 09/29 SP vanco #15 for S.epi in BCx 09/27 SP angelo #13 09/16 SP Cefepime #3, Levaquin #3 Monitor CBC/CMP, temperatures ICU/ trach/ peg care Aspiration precautions D/w RN Thank you for this consultation. Will continue to follow along with you. Subjective Allergies: Coded Allergies: No Known Allergies (Unverified , 10/10/17) afebrile Objective Last 24 Hour Vital Signs Date Time Temp Pulse Resp B/P (MAP) Pulse Ox O2 Delivery O2 Flow Rate FiO2 10/06/19 12:25 20 120/48 Mechanical Ventilator 100 10/06/19 12:00 100 10/06/19 12:00 Mechanical Ventilator Mechanical Ventilator 10/06/19 11:34 56 117/46 10/06/19 11:00 20 127/68 Mechanical Ventilator 100 10/06/19 11:00 63 20 127/68 (87) 94 10/06/19 10:47 60 20 100 10/06/19 10:30 65 20 127/54 (78) 95 10/06/19 10:03 20 155/101 Mechanical Ventilator 100 10/06/19 10:00 61 20 140/56 (84) 99 10/06/19 10:00 20 140/56 Mechanical Ventilator 100 10/06/19 09:30 60 17 155/101 (119) 98 10/06/19 09:11 62 20 100 10/06/19 09:00 20 118/52 Mechanical Ventilator 100 10/06/19 09:00 60 20 118/52 (74) 97 10/06/19 08:30 60 20 131/52 (78) 96 10/06/19 08:29 60 115/50 10/06/19 08:27 115/50 10/06/19 08:00 100 10/06/19 08:00 20 115/50 Mechanical Ventilator 100 10/06/19 08:00 Mechanical Ventilator Mechanical Ventilator 10/06/19 08:00 98.2 60 20 115/50 (71) 96 10/06/19 07:30 60 20 131/53 (79) 96 10/06/19 07:25 60 20 96 Mechanical Ventilator 100 61 20 100 10/06/19 07:00 63 20 135/54 (81) 98 10/06/19 07:00 20 135/54 Mechanical Ventilator 100 10/06/19 06:30 61 20 129/49 (75) 98 10/06/19 06:00 59 20 120/47 (71) 96 10/06/19 06:00 20 120/47 Mechanical Ventilator 100 10/06/19 05:52 62 127/53 10/06/19 05:30 57 20 127/53 (77) 97 10/06/19 05:07 57 20 100 10/06/19 05:00 58 20 126/50 (75) 97 10/06/19 05:00 20 126/50 Mechanical Ventilator 100 10/06/19 04:30 57 20 123/49 (73) 96 10/06/19 04:00 98.1 61 21 138/75 (96) 95 10/06/19 04:00 21 138/75 Mechanical Ventilator 100 10/06/19 04:00 61 10/06/19 04:00 Mechanical Ventilator Mechanical Ventilator 10/06/19 04:00 100 10/06/19 03:30 63 19 119/50 (73) 94 10/06/19 03:00 61 20 115/48 (70) 94 10/06/19 03:00 20 115/48 Mechanical Ventilator 100 10/06/19 02:57 61 20 100 10/06/19 02:30 62 20 114/43 (66) 94 10/06/19 02:00 20 106/44 Mechanical Ventilator 100 10/06/19 02:00 62 20 106/44 (64) 95 10/06/19 01:30 64 19 116/45 (68) 96 10/06/19 01:20 64 24 95 Mechanical Ventilator 100 62 20 100 10/06/19 01:00 64 20 113/45 (67) 94 10/06/19 01:00 20 113/45 Mechanical Ventilator 100 10/06/19 00:30 62 20 108/44 (65) 93 10/06/19 00:00 Mechanical Ventilator Mechanical Ventilator 10/06/19 00:00 100 10/06/19 00:00 20 112/45 Mechanical Ventilator 100 10/06/19 00:00 62 10/06/19 00:00 98.5 62 20 112/45 (67) 94 10/05/19 23:53 68 134/57 10/05/19 23:30 64 17 134/57 (82) 93 10/05/19 23:17 59 20 100 10/05/19 23:00 64 24 115/66 (82) 92 10/05/19 23:00 24 115/66 Mechanical Ventilator 100 10/05/19 22:30 62 20 114/50 (71) 93 10/05/19 22:00 62 20 123/53 (76) 94 10/05/19 22:00 20 123/53 Mechanical Ventilator 100 10/05/19 21:44 62 20 100 10/05/19 21:30 62 20 126/52 (76) 96 10/05/19 21:00 21 142/63 Mechanical Ventilator 100 10/05/19 21:00 69 21 142/63 (89) 96 10/05/19 20:41 20 131/52 Mechanical Ventilator 100 10/05/19 20:39 65 131/52 10/05/19 20:30 65 20 131/52 (78) 97 10/05/19 20:00 98.5 65 20 125/49 (74) 96 10/05/19 20:00 Mechanical Ventilator Mechanical Ventilator 10/05/19 20:00 20 125/49 Mechanical Ventilator 100 10/05/19 20:00 100 10/05/19 19:49 64 20 98 Mechanical Ventilator 100 62 20 100 10/05/19 19:30 63 20 122/52 (75) 96 10/05/19 19:09 64 10/05/19 19:00 63 20 123/49 (73) 96 10/05/19 19:00 20 123/49 Mechanical Ventilator 100 10/05/19 18:30 61 20 119/49 (72) 96 10/05/19 18:00 20 111/53 Mechanical Ventilator 100 10/05/19 18:00 62 20 111/53 (72) 96 10/05/19 17:30 64 20 105/46 (65) 95 10/05/19 17:28 63 103/47 10/05/19 17:14 64 20 100 10/05/19 17:00 64 20 103/47 (65) 96 10/05/19 17:00 20 103/47 Mechanical Ventilator 100 10/05/19 16:30 65 20 114/46 (68) 96 8/22/20 16:00 99.2 67 20 116/49 (71) 97 10/05/19 16:00 100 10/05/19 16:00 20 116/49 Mechanical Ventilator 100 10/05/19 16:00 68 10/05/19 16:00 Mechanical Ventilator Mechanical Ventilator 10/05/19 15:55 99.2 10/05/19 15:30 71 26 117/93 (101) 91 10/05/19 15:00 20 144/83 Mechanical Ventilator 100 10/05/19 15:00 71 26 144/83 (103) 89 10/05/19 14:57 72 25 100 10/05/19 14:30 65 20 116/45 (68) 91 10/05/19 14:00 20 96/38 Mechanical Ventilator 100 10/05/19 14:00 59 20 98/38 (58) 91 10/05/19 13:30 61 20 102/44 (63) 93 10/05/19 13:08 60 20 92 Mechanical Ventilator 100 61 20 100 10/05/19 13:00 20 95/39 Mechanical Ventilator 100 10/05/19 13:00 61 20 95/39 (57) 93 Height (Feet): 5 Height (Inches): 5.00 Weight (Pounds): 142 HEENT: atraumatic Respiratory/Chest: normal breath sounds Cardiovascular: regular rhythm Abdomen: soft, non tender Laboratory Tests Test 10/06/19 04:20 10/06/19 05:30 White Blood Count 7.1 K/UL (4.8-10.8) Red Blood Count 2.80 M/UL (4.20-5.40) L Hemoglobin 8.5 G/DL (12.0-16.0) L Hematocrit 27.2 % (37.0-47.0) L Mean Corpuscular Volume 97 FL (80-99) Mean Corpuscular Hemoglobin 30.4 PG (27.0-31.0) Mean Corpuscular Hemoglobin Concent 31.3 G/DL (32.0-36.0) L Red Cell Distribution Width 14.5 % (11.6-14.8) Platelet Count 402 K/UL (150-450) Mean Platelet Volume 5.6 FL (6.5-10.1) L Neutrophils (%) (Auto) 62.8 % (45.0-75.0) Lymphocytes (%) (Auto) 23.7 % (20.0-45.0) Monocytes (%) (Auto) 7.5 % (1.0-10.0) Eosinophils (%) (Auto) 4.4 % (0.0-3.0) H Basophils (%) (Auto) 1.6 % (0.0-2.0) Sodium Level 140 MMOL/L (136-145) Potassium Level 4.0 MMOL/L (3.5-5.1) Chloride Level 102 MMOL/L (98-107) Carbon Dioxide Level 27 MMOL/L (21-32) Anion Gap 11 mmol/L (5-15) Blood Urea Nitrogen 74 mg/dL (7-18) H Creatinine 3.1 MG/DL (0.55-1.30) H Estimat Glomerular Filtration Rate 16.1 mL/min (>60) Glucose Level 76 MG/DL (74-106) Calcium Level 8.5 MG/DL (8.5-10.1) Phosphorus Level 5.2 MG/DL (2.5-4.9) H Magnesium Level 2.8 MG/DL (1.8-2.4) H Total Bilirubin 0.2 MG/DL (0.2-1.0) Aspartate Amino Transf (AST/SGOT) 19 U/L (15-37) Alanine Aminotransferase (ALT/SGPT) < 6 U/L (12-78) L Alkaline Phosphatase 142 U/L (46-116) H Total Protein 6.1 G/DL (6.4-8.2) L Albumin 1.6 G/DL (3.4-5.0) L Globulin 4.5 g/dL Albumin/Globulin Ratio 0.4 (1.0-2.7) L Current Medications Medications (Trade) Dose Ordered Sig/Penny Route PRN Reason Start Time Stop Time Status Last Admin Dose Admin Acetaminophen (Tylenol) 325 mg Q6H PRN GT Temp >100.5 09/23/19 10:45 10/23/19 10:44 09/23/19 18:55 Albuterol/ Ipratropium (Albuterol/ Ipratropium) 3 ml Q6HRT HHN 10/04/19 13:00 10/09/19 12:59 10/06/19 07:15 Ascorbic Acid (Vitamin C) 500 mg DAILY ORAL 10/06/19 09:00 11/05/19 08:59 10/06/19 08:27 Chlorhexidine Gluconate (Ling-Hex 2%) 1 applic DAILY@2000 TOPIC 09/23/19 20:00 12/22/19 19:59 10/05/19 19:47 Dextrose (Dextrose 50%) 25 ml Q30M PRN IV Hypoglycemia 10/05/19 18:30 01/03/20 18:29 Dextrose (Dextrose 50%) 50 ml Q30M PRN IV Hypoglycemia 10/05/19 18:30 01/03/20 18:29 Diltiazem HCl (Cardizem Tab) 60 mg Q6HR GT 10/04/19 18:00 11/03/19 17:59 10/06/19 05:52 Docusate Sodium (Colace) 100 mg Q8H GT 09/29/19 08:30 10/29/19 08:29 10/06/19 08:27 Epoetin Gelacio (Epoetin Gelacio(ESRD on dialysis)) 10,000 unit MON-MON-MON SUBQ 09/25/19 21:00 12/24/19 20:59 10/04/19 20:59 Fentanyl Citrate 250 ml @ 0 mls/hr Q24H IV 10/06/19 12:30 10/08/19 11:59 10/06/19 12:25 Heparin Sodium (Porcine) (Heparin 5000 units/ml) 5,000 units EVERY 12 HOURS SUBQ 09/17/19 21:00 10/30/19 08:59 10/06/19 08:30 Hydralazine HCl (Apresoline) 10 mg Q4H PRN IV BP over 160 systolic 09/17/19 11:15 12/14/19 11:14 10/04/19 09:04 Insulin Aspart (NovoLOG) Q6HR SUBQ 10/06/19 00:00 01/03/20 20:59 Lactulose (Cephulac) 10 gm THREE TIMES A DAY ORAL 10/03/19 13:00 11/02/19 12:59 10/06/19 08:27 Lansoprazole (Prevacid) 30 mg Q12HR GT 09/27/19 21:00 10/27/19 20:59 10/06/19 08:27 Lisinopril (ZestriL) 10 mg BID GT 10/06/19 18:00 11/03/19 13:29 Metoclopramide HCl (Reglan) 10 mg Q8H IVP 09/29/19 14:00 10/29/19 13:59 10/06/19 05:52 Metoprolol Tartrate (Lopressor) 50 mg EVERY 12 HOURS GT 10/04/19 21:00 12/14/19 20:59 10/06/19 08:29 Midazolam HCl (Versed 2mg/2ml vial) 1 mg Q4H PRN IVP For Anxiety 09/21/19 09:30 12/20/19 09:29 10/04/19 14:47 Minoxidil (Loniten) 2.5 mg Q6HR PRN GT BP OVER 170 SYST 10/05/19 08:30 12/31/19 13:59 Polyethylene Glycol (Miralax) 17 gm BEDTIME ORAL 10/01/19 21:00 10/31/19 20:59 10/05/19 20:37 Risperidone (RisperDAL) 2 mg BEDTIME ORAL 10/05/19 21:00 11/19/19 20:59 10/05/19 20:37 Sertraline HCl (Zoloft) 100 mg BEDTIME GT 09/17/19 21:00 10/15/19 20:59 10/05/19 20:38 Sorbitol (sorbitoL) 30 ml EVERY 6 HOURS PRN GT Constipation 09/29/19 18:00 10/29/19 17:59 10/01/19 00:44 Tramadol HCl (Ultram) 25 mg Q6H GT 10/04/19 20:45 10/11/19 20:44 10/06/19 08:28 Vitamin B Complex/ Vit C/Folic Acid (Nephrovite) 1 tab DAILY ORAL 10/06/19 09:00 11/05/19 08:59 10/06/19 08:27 Zinc Sulfate (Zinc Sulfate) 220 mg DAILY ORAL 10/06/19 09:00 10/16/19 08:59 10/06/19 08:27 Fabricio Ruiz MD Oct 06, 2019 13:01
[2019-10-06] MEDS ORDERED: NS 275ml ONE ×2 (14:21→14:22)
[2019-10-06] MEDS ORDERED: Sterile Water Irrig 1000ml IRRIG ONE (14:21)
[2019-10-06] MEDS ORDERED: Tubing IV Secondary IV ONE (14:22)
--- NOTE | 2019-10-06 14:27 | Diagnostic Imaging Report ---
EXAM: XR Chest, 1 View CLINICAL HISTORY: F/U TECHNIQUE: Frontal view of the chest. COMPARISON: No relevant prior studies available. FINDINGS: Lungs: Reduced lung volumes. Bilateral pulmonary opacities. Retrocardiac atelectasis/consolidation. Pleural space: Cannot exclude effusions. No pneumothorax. Heart: Unremarkable. No cardiomegaly. Mediastinum: Unremarkable. Bones/joints: Sternotomy. Tubes, lines and devices: Tracheostomy. Central line in the right atrium. IMPRESSION: Reduced lung volumes. Bilateral pulmonary opacities. Could be from edema and/or pneumonia. There is a broader differential.
[2019-10-06] MEDS: Dyna-Hex 2% Top Sol 2oz TOPIC SCH (19:33)
[2019-10-06] MEDS: Sertraline 100mg tab GT SCH (21:06)
[2019-10-06] MEDS: Miralax 17gm pkt ORAL SCH (21:07)
[2019-10-07] VITALS (49 sets, daily range): BP systolic 115–196; BP diastolic 48–81
[2019-10-07] MEDS: Docusate 100mg/10ml Liq GT SCH ×3 (00:05→17:06)
[2019-10-07] MEDS: fentaNYL 2500mcg/NS 250ml 250 ML IV SCH ×3 (00:14→15:28)
--- NOTE | 2019-10-07 00:49 | Psych Consult Progress Note ---
Psychiatry Progress Note Psychiatry Progress Note Medications Current Medications Medications (Trade) Dose Ordered Sig/Penny Route PRN Reason Start Time Stop Time Status Last Admin Dose Admin Acetaminophen (Tylenol) 325 mg Q6H PRN GT Temp >100.5 09/23/19 10:45 10/23/19 10:44 09/23/19 18:55 Albuterol/ Ipratropium (Albuterol/ Ipratropium) 3 ml Q6HRT HHN 10/04/19 13:00 10/09/19 12:59 10/06/19 19:20 Ascorbic Acid (Vitamin C) 500 mg DAILY ORAL 10/06/19 09:00 11/05/19 08:59 10/06/19 08:27 Chlorhexidine Gluconate (Ling-Hex 2%) 1 applic DAILY@2000 TOPIC 09/23/19 20:00 12/22/19 19:59 10/06/19 19:33 Dextrose (Dextrose 50%) 25 ml Q30M PRN IV Hypoglycemia 10/05/19 18:30 01/03/20 18:29 Dextrose (Dextrose 50%) 50 ml Q30M PRN IV Hypoglycemia 10/05/19 18:30 01/03/20 18:29 Diltiazem HCl (Cardizem Tab) 60 mg Q6HR GT 10/04/19 18:00 11/03/19 17:59 10/06/19 18:18 Docusate Sodium (Colace) 100 mg Q8H GT 09/29/19 08:30 10/29/19 08:29 10/06/19 16:12 Epoetin Gelacio (Epoetin Gelacio(ESRD on dialysis)) 10,000 unit MON-MON-MON SUBQ 09/25/19 21:00 12/24/19 20:59 10/04/19 20:59 Fentanyl Citrate 250 ml @ 0 mls/hr Q24H IV 10/06/19 12:30 10/08/19 11:59 10/07/19 00:14 Heparin Sodium (Porcine) (Heparin 5000 units/ml) 5,000 units EVERY 12 HOURS SUBQ 09/17/19 21:00 10/30/19 08:59 10/06/19 21:06 Hydralazine HCl (Apresoline) 10 mg Q4H PRN IV BP over 160 systolic 09/17/19 11:15 12/14/19 11:14 10/04/19 09:04 Insulin Aspart (NovoLOG) Q6HR SUBQ 10/06/19 00:00 01/03/20 20:59 Lactulose (Cephulac) 10 gm THREE TIMES A DAY ORAL 10/03/19 13:00 11/02/19 12:59 10/06/19 18:17 Lansoprazole (Prevacid) 30 mg Q12HR GT 09/27/19 21:00 10/27/19 20:59 10/06/19 21:06 Lisinopril (ZestriL) 10 mg BID GT 10/06/19 18:00 11/03/19 13:29 10/06/19 18:18 Metoclopramide HCl (Reglan) 10 mg Q8H IVP 09/29/19 14:00 10/29/19 13:59 10/06/19 21:32 Metoprolol Tartrate (Lopressor) 50 mg EVERY 12 HOURS GT 10/04/19 21:00 12/14/19 20:59 10/06/19 08:29 Midazolam HCl (Versed 2mg/2ml vial) 1 mg Q4H PRN IVP For Anxiety 09/21/19 09:30 12/20/19 09:29 10/04/19 14:47 Minoxidil (Loniten) 2.5 mg Q6HR PRN GT BP OVER 170 SYST 10/05/19 08:30 12/31/19 13:59 Polyethylene Glycol (Miralax) 17 gm BEDTIME ORAL 10/01/19 21:00 10/31/19 20:59 10/06/19 21:07 Risperidone (RisperDAL) 2 mg BEDTIME ORAL 10/05/19 21:00 11/19/19 20:59 10/06/19 21:06 Sertraline HCl (Zoloft) 100 mg BEDTIME GT 09/17/19 21:00 10/15/19 20:59 10/06/19 21:06 Sorbitol (sorbitoL) 30 ml EVERY 6 HOURS PRN GT Constipation 09/29/19 18:00 10/29/19 17:59 10/01/19 00:44 Tramadol HCl (Ultram) 25 mg Q6H GT 10/04/19 20:45 10/11/19 20:44 10/06/19 21:07 Vitamin B Complex/ Vit C/Folic Acid (Nephrovite) 1 tab DAILY ORAL 10/06/19 09:00 11/05/19 08:59 10/06/19 08:27 Zinc Sulfate (Zinc Sulfate) 220 mg DAILY ORAL 10/06/19 09:00 10/16/19 08:59 10/06/19 08:27 Neurological/Psychiatric: Reports: anxiety, depressed, emotional problems; Denies: no symptoms, headache, numbness, paresthesia, pre-existing deficit, seizure, tingling, tremors, weakness, other Allergies: Coded Allergies: No Known Allergies (Unverified , 10/10/17) Objective Data Height (Feet): 5 Height (Inches): 5.00 Weight (Pounds): 142 General Appearance: WD/WN, no apparent distress, confused, agitated Additional Comments: awake, disoriented. Mood is agitated. Affect is flat. Thought process is concrete. Thought content, no suicidal or homicidal ideation. Cognition is impaired. Insight and judgment are impaired. Assessment/Plan Assessment/Plan: ASSESSMENT: AXIS I: Acute encephalopathy. Schizophrenia. AXIS II: Deferred. AXIS III: As above. AXIS IV: Low. AXIS V: 20. PLAN: 1. We will start the patient on risperidone 2 mg at bedtime. 2. Haldol IM. The patient improved after 1 dose and restraints was stopped at nighttime. 3. Continue to follow and readjust the medications. Shanda Linares MD Oct 07, 2019 00:49
[2019-10-07] MEDS: Albuterol/Ipratropium 3ml neb HHN SCH ×4 (01:04→19:00)
[2019-10-07] MEDS: traMADol 50mg tab GT SCH ×5 (02:46→22:35)
[2019-10-07] MEDS: NovoLOG Insulin Flexpen SUBQ SCH ×5 (05:43→23:34)
[2019-10-07] MEDS: dilTIAZem HCl 60mg tab GT SCH ×4 (05:43→17:07)
[2019-10-07] MEDS: Metoclopramide 10mg/2ml Inj IVP SCH ×3 (05:43→21:33)
--- NOTE | 2019-10-07 06:43 | Hematology/Onc Progress Note ---
Assessment/Plan Assessment/Plan Assessment and Recs # Leukocytosis, now with gram positive bacteremias well as pna noted --> historically --> PPM site (pocket) infection (redness and pain, bacteremia) and likely pocket abscess - no vegetation seen on ABBIE --> is s'p pm removal and also pocket infection is better --> per cards recs in re to tach/davis --> wbc 15-->19-->17-->15-->13->12-->13-->12>13-->18-->9-->7 --> ABX cefepime/levaquin--> vanc/angelo --> ID recs are noted # Anemia of chronic disease due to underlying chronic medical issues, multifactorial --> Anemia workup has been reviewed, cw acd --> No evidence of hemolysis is noted, peripheral smear has been reviewed. --> Hgb goal >7. Transfuse prn. --> Epogen started --> Medications have been reviewed --> low threshold for gi evaluation in case has occult + --> hgb 7.1-->7.8-->8.9->9.2-->8.5-->9.7-->10-->8.8-->9.6-->8.7->8.6-->7.2->8.7- >9.1-->9.2-->9-->8.7 --> 1 unit prbc 09/27 # Thrombocytois is likely reactive process, is s/p infection --> plt trend 610k-->706k-->354 --> p smear reviewed # Acute hypoxic respiratory failure s/p intubation 11/23- ?ARDS --> on vent/trach # Gram positive bacteremia- real bacteremia- 2ry to above and probable PNA --> per id care # JAVIER initially >2 --> now improved with D5w # Dysphagia s/p peg # Thoracic aortic dissection s/p repair early 2017 # Psychiatric history on ativan/haldol # [place] # Dvt ppx heparin sq The timing of this note does not necessarily reflect the time of the patient was seen. Greatly appreciate consultation. Subjective Endocrine: Denies: no symptoms, excessive sweating, flushing, intolerance to cold, intolerance to heat, increased hunger, increased thirst, increased urine, unexplained weight gain, unexplained weight loss, other Allergies: Coded Allergies: No Known Allergies (Unverified , 10/10/17) All Systems: reviewed and negative except above Subjective 09/16 on vent now, consulted in am pulm, on vent setting, labs noted, hep sq 09/17 meds noted, cbc noted, labs noted, no bleeding 09/18 is to undergo potential v/q scan given abg, labs noted, resless, on ativan, to get haldol today, roman rn 09/19 remains agitated, covering, with sacral wound seeping, likely cause of anemia, roman rn 09/26 restless, remains agitated, gtube ripped, eval with rn, and ifeoma consulted 09/27 remains on vent, agitated, seen by gi, hgb low, roman George to transfuse 1 unit prbc 09/28 meds noted, no bleeding, on vent, s/p blood tranfusion, cbc pending, roman rn 09/29 remains in the icu, roman rn in the am, agitated, on versed, fentanyl, restraints 09/30 in icu, trach to vent, on gtube feeds, fentanyl, agitated 10/01 in icu, roman Ayoub rn, no bleeding, sleeping, labs noted, hgb >9 10/02 sedated in icu, is on vent, roman rn, more alert and more conversive with face grimaces 10/03 labs have been reviewed, no bleeding, icu, meds reviewed, on fentanyl and versed, to consult psych 10/05 remains on fentanyl, also with restraints, no bleeding, cbc ordered 10/06 remains obtunded, though reactive when proded, labs pending from am Objective Objective Current Medications Medications (Trade) Dose Ordered Sig/Penny Route PRN Reason Start Time Stop Time Status Last Admin Dose Admin Acetaminophen (Tylenol) 325 mg Q6H PRN GT Temp >100.5 09/23/19 10:45 10/23/19 10:44 09/23/19 18:55 Albuterol/ Ipratropium (Albuterol/ Ipratropium) 3 ml Q6HRT HHN 10/04/19 13:00 10/09/19 12:59 10/07/19 01:04 Ascorbic Acid (Vitamin C) 500 mg DAILY ORAL 10/06/19 09:00 11/05/19 08:59 10/06/19 08:27 Chlorhexidine Gluconate (Ling-Hex 2%) 1 applic DAILY@2000 TOPIC 09/23/19 20:00 12/22/19 19:59 10/06/19 19:33 Dextrose (Dextrose 50%) 25 ml Q30M PRN IV Hypoglycemia 10/05/19 18:30 01/03/20 18:29 Dextrose (Dextrose 50%) 50 ml Q30M PRN IV Hypoglycemia 10/05/19 18:30 01/03/20 18:29 Diltiazem HCl (Cardizem Tab) 60 mg Q6HR GT 10/04/19 18:00 11/03/19 17:59 10/06/19 18:18 Docusate Sodium (Colace) 100 mg Q8H GT 09/29/19 08:30 10/29/19 08:29 10/06/19 16:12 Epoetin Gelacio (Epoetin Gelacio(ESRD on dialysis)) 10,000 unit MON-MON-MON SUBQ 09/25/19 21:00 12/24/19 20:59 10/04/19 20:59 Fentanyl Citrate 250 ml @ 0 mls/hr Q24H IV 10/06/19 12:30 10/08/19 11:59 10/07/19 00:14 Heparin Sodium (Porcine) (Heparin 5000 units/ml) 5,000 units EVERY 12 HOURS SUBQ 09/17/19 21:00 10/30/19 08:59 10/06/19 21:06 Hydralazine HCl (Apresoline) 10 mg Q4H PRN IV BP over 160 systolic 09/17/19 11:15 12/14/19 11:14 10/04/19 09:04 Insulin Aspart (NovoLOG) Q6HR SUBQ 10/06/19 00:00 01/03/20 20:59 Lactulose (Cephulac) 10 gm THREE TIMES A DAY ORAL 10/03/19 13:00 11/02/19 12:59 10/06/19 18:17 Lansoprazole (Prevacid) 30 mg Q12HR GT 09/27/19 21:00 10/27/19 20:59 10/06/19 21:06 Lisinopril (ZestriL) 10 mg BID GT 10/06/19 18:00 11/03/19 13:29 10/06/19 18:18 Metoclopramide HCl (Reglan) 10 mg Q8H IVP 09/29/19 14:00 10/29/19 13:59 10/07/19 05:43 Metoprolol Tartrate (Lopressor) 50 mg EVERY 12 HOURS GT 10/04/19 21:00 12/14/19 20:59 10/06/19 08:29 Midazolam HCl (Versed 2mg/2ml vial) 1 mg Q4H PRN IVP For Anxiety 09/21/19 09:30 12/20/19 09:29 10/04/19 14:47 Minoxidil (Loniten) 2.5 mg Q6HR PRN GT BP OVER 170 SYST 10/05/19 08:30 12/31/19 13:59 Polyethylene Glycol (Miralax) 17 gm BEDTIME ORAL 10/01/19 21:00 10/31/19 20:59 10/06/19 21:07 Risperidone (RisperDAL) 2 mg BEDTIME ORAL 10/05/19 21:00 11/19/19 20:59 10/06/19 21:06 Sertraline HCl (Zoloft) 100 mg BEDTIME GT 09/17/19 21:00 10/15/19 20:59 10/06/19 21:06 Sorbitol (sorbitoL) 30 ml EVERY 6 HOURS PRN GT Constipation 09/29/19 18:00 10/29/19 17:59 10/01/19 00:44 Tramadol HCl (Ultram) 25 mg Q6H GT 10/04/19 20:45 10/11/19 20:44 10/07/19 02:46 Vitamin B Complex/ Vit C/Folic Acid (Nephrovite) 1 tab DAILY ORAL 10/06/19 09:00 11/05/19 08:59 10/06/19 08:27 Zinc Sulfate (Zinc Sulfate) 220 mg DAILY ORAL 10/06/19 09:00 10/16/19 08:59 10/06/19 08:27 Last 24 Hour Vital Signs Date Time Temp Pulse Resp B/P (MAP) Pulse Ox O2 Delivery O2 Flow Rate FiO2 10/07/19 06:30 54 20 145/56 (85) 99 10/07/19 06:00 20 143/59 Mechanical Ventilator 100 10/07/19 06:00 55 20 143/59 (87) 99 10/07/19 05:43 55 143/55 10/07/19 05:30 56 20 143/55 (84) 99 10/07/19 05:00 20 147/54 Mechanical Ventilator 100 10/07/19 05:00 57 20 147/54 (85) 99 10/07/19 04:30 56 20 159/61 (93) 99 10/07/19 04:00 100 10/07/19 04:00 97.6 56 20 162/62 (95) 99 10/07/19 04:00 56 10/07/19 04:00 Mechanical Ventilator Mechanical Ventilator 10/07/19 04:00 20 162/62 Mechanical Ventilator 100 10/07/19 03:30 56 20 152/58 (89) 100 10/07/19 03:22 63 20 100 10/07/19 03:00 20 155/58 Mechanical Ventilator 100 10/07/19 03:00 56 20 155/58 (90) 100 10/07/19 02:30 60 20 148/58 (88) 99 10/07/19 02:00 55 20 157/62 (93) 99 10/07/19 02:00 20 157/62 Mechanical Ventilator 100 10/07/19 01:30 55 20 154/60 (91) 99 10/07/19 01:07 55 20 99 Mechanical Ventilator 100 55 20 100 10/07/19 01:00 56 20 142/58 (86) 98 10/07/19 01:00 20 142/58 Mechanical Ventilator 100 10/07/19 00:30 55 20 144/58 (86) 98 10/07/19 00:14 20 145/54 Mechanical Ventilator 100 10/07/19 00:00 55 10/07/19 00:00 100 10/07/19 00:00 20 145/54 Mechanical Ventilator 100 10/07/19 00:00 56 145/54 10/07/19 00:00 98.0 55 20 145/54 (84) 98 10/07/19 00:00 Mechanical Ventilator Mechanical Ventilator 10/06/19 23:30 56 20 142/55 (84) 99 10/06/19 23:03 56 20 100 10/06/19 23:00 58 20 132/60 (84) 98 10/06/19 23:00 20 132/60 Mechanical Ventilator 100 10/06/19 22:30 58 20 134/52 (79) 98 10/06/19 22:00 57 20 132/54 (80) 98 10/06/19 22:00 20 132/54 Mechanical Ventilator 100 10/06/19 21:30 57 20 141/53 (82) 98 10/06/19 21:00 57 20 138/52 (80) 97 10/06/19 21:00 20 135/52 Mechanical Ventilator 100 10/06/19 21:00 56 138/52 10/06/19 20:30 57 20 138/54 (82) 97 10/06/19 20:00 Mechanical Ventilator Mechanical Ventilator 10/06/19 20:00 98.1 56 20 135/56 (82) 97 10/06/19 20:00 100 10/06/19 20:00 20 135/56 Mechanical Ventilator 100 10/06/19 20:00 59 10/06/19 19:30 57 20 140/54 (82) 95 10/06/19 19:23 57 20 97 Mechanical Ventilator 100 58 20 100 10/06/19 19:00 58 20 137/52 (80) 97 10/06/19 19:00 22 137/52 Mechanical Ventilator 100 10/06/19 18:30 57 20 144/57 (86) 96 10/06/19 18:18 143/57 10/06/19 18:18 62 143/57 10/06/19 18:00 58 20 143/57 (85) 96 10/06/19 18:00 20 143/57 Mechanical Ventilator 100 10/06/19 17:30 61 20 145/58 (87) 98 10/06/19 17:12 63 20 100 10/06/19 17:00 66 22 145/58 (87) 97 10/06/19 17:00 21 145/58 Mechanical Ventilator 100 10/06/19 16:30 61 20 138/55 (82) 99 10/06/19 16:00 98.2 65 26 150/62 (91) 100 10/06/19 16:00 22 140/60 Mechanical Ventilator 100 10/06/19 16:00 100 10/06/19 16:00 63 10/06/19 16:00 Mechanical Ventilator Mechanical Ventilator 10/06/19 15:45 22 150/62 Mechanical Ventilator 100 10/06/19 15:30 65 22 135/54 (81) 100 10/06/19 15:30 22 140/60 Mechanical Ventilator 100 10/06/19 15:15 21 135/54 Mechanical Ventilator 100 10/06/19 15:12 63 20 100 10/06/19 15:00 20 146/59 Mechanical Ventilator 100 10/06/19 15:00 63 19 146/59 (88) 98 10/06/19 14:30 58 20 127/50 (75) 97 10/06/19 14:00 20 132/50 Mechanical Ventilator 100 10/06/19 14:00 58 20 132/50 (77) 97 10/06/19 13:32 56 20 97 Mechanical Ventilator 100 59 20 100 10/06/19 13:30 58 20 140/55 (83) 97 10/06/19 13:00 57 20 123/48 (73) 97 10/06/19 13:00 20 132/50 Mechanical Ventilator 100 10/06/19 12:30 58 20 122/51 (74) 97 10/06/19 12:25 20 120/48 Mechanical Ventilator 100 10/06/19 12:00 59 10/06/19 12:00 98.1 58 20 120/48 (72) 97 10/06/19 12:00 20 120/48 Mechanical Ventilator 100 10/06/19 12:00 100 10/06/19 12:00 Mechanical Ventilator Mechanical Ventilator 10/06/19 11:34 56 117/46 10/06/19 11:30 58 20 117/46 (69) 98 10/06/19 11:00 20 127/68 Mechanical Ventilator 100 10/06/19 11:00 63 20 127/68 (87) 94 10/06/19 10:47 60 20 100 10/06/19 10:30 65 20 127/54 (78) 95 10/06/19 10:03 20 155/101 Mechanical Ventilator 100 10/06/19 10:00 61 20 140/56 (84) 99 10/06/19 10:00 20 140/56 Mechanical Ventilator 100 10/06/19 09:30 60 17 155/101 (119) 98 10/06/19 09:11 62 20 100 10/06/19 09:00 20 118/52 Mechanical Ventilator 100 10/06/19 09:00 60 20 118/52 (74) 97 10/06/19 08:30 60 20 131/52 (78) 96 10/06/19 08:29 60 115/50 10/06/19 08:27 115/50 10/06/19 08:00 100 10/06/19 08:00 20 115/50 Mechanical Ventilator 100 10/06/19 08:00 Mechanical Ventilator Mechanical Ventilator 10/06/19 08:00 59 10/06/19 08:00 98.2 60 20 115/50 (71) 96 10/06/19 07:30 60 20 131/53 (79) 96 10/06/19 07:25 60 20 96 Mechanical Ventilator 100 61 20 100 10/06/19 07:00 63 20 135/54 (81) 98 10/06/19 07:00 20 135/54 Mechanical Ventilator 100 10/06/19 06:30 61 20 129/49 (75) 98 10/06/19 06:00 59 20 120/47 (71) 96 10/06/19 06:00 20 120/47 Mechanical Ventilator 100 10/06/19 05:52 62 127/53 10/06/19 05:30 57 20 127/53 (77) 97 10/06/19 05:07 57 20 100 10/06/19 05:00 58 20 126/50 (75) 97 10/06/19 05:00 20 126/50 Mechanical Ventilator 100 10/06/19 04:30 57 20 123/49 (73) 96 10/06/19 04:00 98.1 61 21 138/75 (96) 95 10/06/19 04:00 21 138/75 Mechanical Ventilator 100 10/06/19 04:00 61 10/06/19 04:00 Mechanical Ventilator Mechanical Ventilator 10/06/19 04:00 100 10/06/19 03:30 63 19 119/50 (73) 94 10/06/19 03:00 61 20 115/48 (70) 94 10/06/19 03:00 20 115/48 Mechanical Ventilator 100 10/06/19 02:57 61 20 100 10/06/19 02:30 62 20 114/43 (66) 94 10/06/19 02:00 20 106/44 Mechanical Ventilator 100 10/06/19 02:00 62 20 106/44 (64) 95 10/06/19 01:30 64 19 116/45 (68) 96 10/06/19 01:20 64 24 95 Mechanical Ventilator 100 62 20 100 10/06/19 01:00 64 20 113/45 (67) 94 10/06/19 01:00 20 113/45 Mechanical Ventilator 100 10/06/19 00:30 62 20 108/44 (65) 93 10/06/19 00:00 Mechanical Ventilator Mechanical Ventilator 10/06/19 00:00 100 10/06/19 00:00 20 112/45 Mechanical Ventilator 100 10/06/19 00:00 62 10/06/19 00:00 98.5 62 20 112/45 (67) 94 10/05/19 23:53 68 134/57 10/05/19 23:30 64 17 134/57 (82) 93 10/05/19 23:17 59 20 100 10/05/19 23:00 64 24 115/66 (82) 92 10/05/19 23:00 24 115/66 Mechanical Ventilator 100 10/05/19 22:30 62 20 114/50 (71) 93 10/05/19 22:00 62 20 123/53 (76) 94 10/05/19 22:00 20 123/53 Mechanical Ventilator 100 10/05/19 21:44 62 20 100 10/05/19 21:30 62 20 126/52 (76) 96 10/05/19 21:00 21 142/63 Mechanical Ventilator 100 10/05/19 21:00 69 21 142/63 (89) 96 10/05/19 20:41 20 131/52 Mechanical Ventilator 100 10/05/19 20:39 65 131/52 10/05/19 20:30 65 20 131/52 (78) 97 10/05/19 20:00 98.5 65 20 125/49 (74) 96 10/05/19 20:00 Mechanical Ventilator Mechanical Ventilator 10/05/19 20:00 20 125/49 Mechanical Ventilator 100 10/05/19 20:00 100 10/05/19 19:49 64 20 98 Mechanical Ventilator 100 62 20 100 10/05/19 19:30 63 20 122/52 (75) 96 10/05/19 19:09 64 10/05/19 19:00 63 20 123/49 (73) 96 10/05/19 19:00 20 123/49 Mechanical Ventilator 100 10/05/19 18:30 61 20 119/49 (72) 96 10/05/19 18:00 20 111/53 Mechanical Ventilator 100 10/05/19 18:00 62 20 111/53 (72) 96 10/05/19 17:30 64 20 105/46 (65) 95 10/05/19 17:28 63 103/47 10/05/19 17:14 64 20 100 10/05/19 17:00 64 20 103/47 (65) 96 10/05/19 17:00 20 103/47 Mechanical Ventilator 100 10/05/19 16:30 65 20 114/46 (68) 96 10/05/19 16:00 99.2 67 20 116/49 (71) 97 10/05/19 16:00 100 10/05/19 16:00 20 116/49 Mechanical Ventilator 100 10/05/19 16:00 68 10/05/19 16:00 Mechanical Ventilator Mechanical Ventilator 10/05/19 15:55 99.2 10/05/19 15:30 71 26 117/93 (101) 91 10/05/19 15:00 20 144/83 Mechanical Ventilator 100 10/05/19 15:00 71 26 144/83 (103) 89 10/05/19 14:57 72 25 100 10/05/19 14:30 65 20 116/45 (68) 91 10/05/19 14:00 20 96/38 Mechanical Ventilator 100 10/05/19 14:00 59 20 98/38 (58) 91 10/05/19 13:30 61 20 102/44 (63) 93 10/05/19 13:08 60 20 92 Mechanical Ventilator 100 61 20 100 10/05/19 13:00 20 95/39 Mechanical Ventilator 100 10/05/19 13:00 61 20 95/39 (57) 93 10/05/19 12:30 65 10 111/45 (67) 95 10/05/19 12:00 100 10/05/19 12:00 20 98/40 Mechanical Ventilator 100 10/05/19 12:00 98.7 63 20 98/40 (59) 91 10/05/19 12:00 64 10/05/19 12:00 Mechanical Ventilator Mechanical Ventilator 10/05/19 11:41 66 111/45 10/05/19 11:30 67 18 111/45 (67) 95 10/05/19 11:00 68 21 112/54 (73) 96 10/05/19 11:00 20 112/34 Mechanical Ventilator 100 10/05/19 10:50 65 20 100 10/05/19 10:30 69 20 105/44 (64) 95 10/05/19 10:00 71 19 93/35 (54) 97 10/05/19 10:00 20 93/35 Mechanical Ventilator 100 10/05/19 09:30 72 19 109/45 (66) 96 10/05/19 09:00 20 110/45 Mechanical Ventilator 100 10/05/19 09:00 73 21 110/45 (66) 94 10/05/19 08:55 117/41 10/05/19 08:54 73 117/41 10/05/19 08:40 70 20 100 10/05/19 08:30 71 20 117/41 (66) 94 10/05/19 08:00 98.9 75 21 148/63 (91) 98 10/05/19 08:00 68 10/05/19 08:00 20 148/63 Mechanical Ventilator 100 10/05/19 08:00 Mechanical Ventilator Mechanical Ventilator 10/05/19 08:00 100 10/05/19 07:30 71 19 138/60 (86) 94 10/05/19 07:24 63 20 98 Mechanical Ventilator 100 74 24 100 10/05/19 07:00 63 20 97/42 (60) 94 10/05/19 07:00 20 97/42 Mechanical Ventilator 100 Intake and Output 10/06/19 10/07/19 19:00 07:00 Intake Total 810.85 ml 860 ml Output Total 75 ml 65 ml Balance 735.85 ml 795 ml Intake Free Water 100 ml 100 ml IV Total 230.85 ml 220 ml Tube Feeding 480 ml 440 ml Other 100 ml Output Urine Total 75 ml 65 ml # Bowel Movements 1 2 Labs Test 10/05/19 05:00 10/05/19 08:20 10/06/19 04:20 10/06/19 05:30 White Blood Count 7.0 K/UL (4.8-10.8) 7.1 K/UL (4.8-10.8) Red Blood Count 2.74 M/UL (4.20-5.40) 2.80 M/UL (4.20-5.40) Hemoglobin 8.4 G/DL (12.0-16.0) 8.5 G/DL (12.0-16.0) Hematocrit 26.6 % (37.0-47.0) 27.2 % (37.0-47.0) Mean Corpuscular Volume 97 FL (80-99) 97 FL (80-99) Mean Corpuscular Hemoglobin 30.7 PG (27.0-31.0) 30.4 PG (27.0-31.0) Mean Corpuscular Hemoglobin Concent 31.6 G/DL (32.0-36.0) 31.3 G/DL (32.0-36.0) Red Cell Distribution Width 14.4 % (11.6-14.8) 14.5 % (11.6-14.8) Platelet Count 377 K/UL (150-450) 402 K/UL (150-450) Mean Platelet Volume 5.9 FL (6.5-10.1) 5.6 FL (6.5-10.1) Neutrophils (%) (Auto) 58.8 % (45.0-75.0) 62.8 % (45.0-75.0) Lymphocytes (%) (Auto) 27.7 % (20.0-45.0) 23.7 % (20.0-45.0) Monocytes (%) (Auto) 8.1 % (1.0-10.0) 7.5 % (1.0-10.0) Eosinophils (%) (Auto) 3.7 % (0.0-3.0) 4.4 % (0.0-3.0) Basophils (%) (Auto) 1.7 % (0.0-2.0) 1.6 % (0.0-2.0) Sodium Level 141 MMOL/L (136-145) 140 MMOL/L (136-145) Potassium Level 3.9 MMOL/L (3.5-5.1) 4.0 MMOL/L (3.5-5.1) Chloride Level 105 MMOL/L (98-107) 102 MMOL/L (98-107) Carbon Dioxide Level 27 MMOL/L (21-32) 27 MMOL/L (21-32) Anion Gap 9 mmol/L (5-15) 11 mmol/L (5-15) Blood Urea Nitrogen 70 mg/dL (7-18) 74 mg/dL (7-18) Creatinine 2.7 MG/DL (0.55-1.30) 3.1 MG/DL (0.55-1.30) Estimat Glomerular Filtration Rate 18.9 mL/min (>60) 16.1 mL/min (>60) Glucose Level 70 MG/DL (74-106) 76 MG/DL (74-106) Calcium Level 8.6 MG/DL (8.5-10.1) 8.5 MG/DL (8.5-10.1) Phosphorus Level 4.6 MG/DL (2.5-4.9) 5.2 MG/DL (2.5-4.9) Magnesium Level 2.7 MG/DL (1.8-2.4) 2.8 MG/DL (1.8-2.4) Total Bilirubin 0.3 MG/DL (0.2-1.0) 0.2 MG/DL (0.2-1.0) Aspartate Amino Transf (AST/SGOT) 21 U/L (15-37) 19 U/L (15-37) Alanine Aminotransferase (ALT/SGPT) 7 U/L (12-78) < 6 U/L (12-78) Alkaline Phosphatase 126 U/L (46-116) 142 U/L (46-116) C-Reactive Protein, Quantitative 11.6 mg/dL (0.00-0.90) Pro-B-Type Natriuretic Peptide > 73705 pg/mL (0-125) Total Protein 5.9 G/DL (6.4-8.2) 6.1 G/DL (6.4-8.2) Albumin 1.5 G/DL (3.4-5.0) 1.6 G/DL (3.4-5.0) Globulin 4.4 g/dL 4.5 g/dL Albumin/Globulin Ratio 0.3 (1.0-2.7) 0.4 (1.0-2.7) Arterial Blood pH 7.419 (7.350-7.450) Arterial Blood Partial Pressure CO2 39.6 mmHg (35.0-45.0) Arterial Blood Partial Pressure O2 69.8 mmHg (75.0-100.0) Arterial Blood HCO3 25.1 mmol/L (22.0-26.0) Arterial Blood Oxygen Saturation 92.4 % (95-100) Arterial Blood Base Excess 0.6 (-2-2) Rojas Test Positive Test 10/06/19 23:12 10/07/19 05:10 10/07/19 05:11 POC Whole Blood Glucose 100 MG/DL (74-106) 88 MG/DL (74-106) Height (Feet): 5 Height (Inches): 5.00 Weight (Pounds): 145 Objective Physical Exam: Vitals: reviewed General: NAD HEENT: nc, at Neck: supple ++tracn/vent Chest: clear breath sounds bilaterally Cardiovascular: RRR, no s3, s4 Abdomen: soft, nontender, nd +gtube Extremities: no cce, normal range of motion Neuro: alert Evan Muhammad MD Oct 07, 2019 06:43
[2019-10-07 06:52] LABS: BASOPHILS % (AUTO) 1.1 % (0.0-2.0); EOSINOPHILS % (AUTO) 3.9 % (0.0-3.0); HEMATOCRIT 27.3 % (37.0-47.0); HEMOGLOBIN 8.6 G/DL (12.0-16.0); LYMPHOCYTES % (AUTO) 21.4 % (20.0-45.0); MEAN CORPUSCULAR VOLUME 97 FL (80-99); MONOCYTES % (AUTO) 6.9 % (1.0-10.0); NEUTROPHILS % (AUTO) 66.7 % (45.0-75.0); PLATELET COUNT 412 K/UL (150-450); RED BLOOD COUNT 2.81 M/UL (4.20-5.40); RED CELL DISTRIBUTION WIDTH 15.1 % (11.6-14.8); WHITE BLOOD COUNT 7.9 K/UL (4.8-10.8)
[2019-10-07 07:52] LABS: ALANINE AMINOTRANSFERASE 8 U/L (12-78); ALBUMIN 1.6 G/DL (3.4-5.0); ALBUMIN/GLOBULIN RATIO 0.3 (1.0-2.7); ALKALINE PHOSPHATASE 157 U/L (46-116); ANION GAP 12 mmol/L (5-15); ASPARTATE AMINO TRANSFERASE 21 U/L (15-37); BILIRUBIN,TOTAL 0.3 MG/DL (0.2-1.0); BLOOD UREA NITROGEN 80 mg/dL (7-18); CALCIUM 9.6 MG/DL (8.5-10.1); CARBON DIOXIDE 26 MMOL/L (21-32); CHLORIDE 102 MMOL/L (98-107); CREATININE 3.3 MG/DL (0.55-1.30); PHOSPHORUS 5.7 MG/DL (2.5-4.9); SODIUM 140 MMOL/L (136-145)
[2019-10-07] MEDS: Metoprolol Tartrate 50mg tab GT SCH ×2 (09:00→20:57)
[2019-10-07] MEDS: Lactulose 10gm/15ml UDC ORAL SCH ×3 (09:19→17:06)
[2019-10-07] MEDS: Ascorbic Acid 500mg tab ORAL SCH (09:20)
[2019-10-07] MEDS: Zinc Sulfate 220mg ORAL SCH (09:20)
[2019-10-07] MEDS: Nephrovite tab (Rena-Vite) ORAL SCH (09:20)
[2019-10-07] MEDS: Lisinopril 10mg tab GT SCH ×2 (09:21→17:07)
[2019-10-07] MEDS: Heparin 5000 units/ml inj SUBQ SCH ×2 (09:22→20:58)
--- NOTE | 2019-10-07 10:34 | Pulmonolgy Critical Care Note ---
Critical Care - Asmt/Plan Assessment/Plan: ASSESSMENT Acute on chronic hypoxemic respiratory failure ( trach dependent), now on vent Tracheostomy status, s/p change to cuffed trach Sepsis Pulmonary edema Pleural effusion -worsening left pl effusion s/p thoracentesis L pleural effusion 09/26 -900 ml Pneumonia with MDR Pseudomonas UTI CHF ? cardiorenal COPD Acute kidney injury and chronic kidney disease-requiring start of HD Hypertension Atrial fibrillation Moderate pulm HTN Moderate AR Dysphagia , feeding by G-tube Electrolyte abnormalities Anemia Toxic metabolic encephalopathy likely due to sepsis and ARF HTN PAF PLAN OF CARE ICU on vent AC trach changed 8/4 pm from uncuffed to cuffed Shiley#[address] chest w/out contrast: - Bilateral pleural effusions, right greater than left, with bilateral lower lobe consolidation or volume loss. -Ground-glass densities in the upper lobes bilaterally. This is not specific. -Tracheostomy. -Increased superior mediastinal density. Stability of adenopathy cannot be excluded. -Atherosclerotic change. -Gastrostomy. -Ascites. -Left renal stent with left hydronephrosis and renal atrophy. VQ scan -> low probability for PE worsening resp status was due to need for HD, now after HD started, resp status improving, down to PEEP 5 and AC 20 trach care , pulmonary toilet ABG this am on FiO2 45 % mild hypoxia, but pulse oximetry above 90% , keep as is and titrate Fio2 further down as tolerated fup with ABG and CXR Mucomyst was prior dc given lots of thin secretions, continue Duoneb prn rapid COVID 19 NGT x3 sedation with fentanyl gtt and Versed prn-> off Versed and on weaning from Fentanyl as tolerated unable to wean, gets agitated and anxious 10/03 night desaturated, apparently due to anxiety, Fio2 up to 100% again ABG and CXR noted, psych eval appreciated, psych meds regimen implemented on Fentanyl gtt , weaning s/p thoracentesis L pleural effusion 09/26 am -> 900 ml fluid analysis noted, unlikely empyema given small # of WBC fup with fluid cx ( apparently never sent despite orders) cytology -> NGT, no malignant cells aspiration precautions venous Duplex BLE -> NGT DVT prophylaxis pulm toilet, abx as per ID- s/p gent x 1, now on Vanco and Zerbaxa , completed 10/02 SCX 8/3 + Proteus, SCX 8/ Pseudomonas MDR UCX 8/2 + Providencia , UCX 09/22 VRE 10-20 K only BCX 8/2 Staph epidermidis, BCX / NGT , BCX 09/22 and 09/26 - NGTD monitor volumes was on gentle IVF-> dc s/p prior diuretic-Lasix require initiation of HD close monitoring of volumes, renal parameters and lytes -per nephro recs HD as per nephro discussed with nephro, he ordered UF for today 10/06 CXR in am titrate FiO2 as able ECHO with pEF , moderate pulm HTN and moderate AR BP management with current regimen of BB, Cardizem and Hydralazine, remains in SR monitor HH with goal to keep Hgb >7, heme on board on EPO supportive care pain management wound care bowel regimen psych eval Dr Linares pending s/p Seroquel x 1 by nephro thank you for a consult Critical Care - Objective Last 24 Hour Vital Signs Date Time Temp Pulse Resp B/P (MAP) Pulse Ox O2 Delivery O2 Flow Rate FiO2 10/07/19 09:30 62 20 158/62 (94) 98 10/07/19 09:21 143/55 10/07/19 09:10 58 20 100 10/07/19 09:00 58 20 143/55 (84) 96 10/07/19 08:30 58 20 147/56 (86) 96 10/07/19 08:00 98.2 58 20 160/60 (93) 98 10/07/19 08:00 100 10/07/19 08:00 Mechanical Ventilator Mechanical Ventilator 10/07/19 07:31 54 20 98 Mechanical Ventilator 100 54 20 100 10/07/19 07:30 54 19 156/61 (92) 98 10/07/19 07:00 20 150/58 Mechanical Ventilator 100 10/07/19 07:00 54 20 150/58 (88) 98 10/07/19 06:30 54 20 145/56 (85) 99 10/07/19 06:00 20 143/59 Mechanical Ventilator 100 10/07/19 06:00 55 20 143/59 (87) 99 10/07/19 05:43 55 143/55 10/07/19 05:30 56 20 143/55 (84) 99 10/07/19 05:00 20 147/54 Mechanical Ventilator 100 10/07/19 05:00 57 20 147/54 (85) 99 10/07/19 04:30 56 20 159/61 (93) 99 10/07/19 04:00 100 10/07/19 04:00 97.6 56 20 162/62 (95) 99 10/07/19 04:00 56 10/07/19 04:00 Mechanical Ventilator Mechanical Ventilator 10/07/19 04:00 20 162/62 Mechanical Ventilator 100 10/07/19 03:30 56 20 152/58 (89) 100 10/07/19 03:22 63 20 100 10/07/19 03:00 20 155/58 Mechanical Ventilator 100 10/07/19 03:00 56 20 155/58 (90) 100 10/07/19 02:30 60 20 148/58 (88) 99 10/07/19 02:00 55 20 157/62 (93) 99 10/07/19 02:00 20 157/62 Mechanical Ventilator 100 10/07/19 01:30 55 20 154/60 (91) 99 10/07/19 01:07 55 20 99 Mechanical Ventilator 100 55 20 100 10/07/19 01:00 56 20 142/58 (86) 98 10/07/19 01:00 20 142/58 Mechanical Ventilator 100 10/07/19 00:30 55 20 144/58 (86) 98 10/07/19 00:14 20 145/54 Mechanical Ventilator 100 10/07/19 00:00 55 10/07/19 00:00 100 10/07/19 00:00 20 145/54 Mechanical Ventilator 100 10/07/19 00:00 56 145/54 10/07/19 00:00 98.0 55 20 145/54 (84) 98 10/07/19 00:00 Mechanical Ventilator Mechanical Ventilator 10/06/19 23:30 56 20 142/55 (84) 99 10/06/19 23:03 56 20 100 10/06/19 23:00 58 20 132/60 (84) 98 10/06/19 23:00 20 132/60 Mechanical Ventilator 100 10/06/19 22:30 58 20 134/52 (79) 98 10/06/19 22:00 57 20 132/54 (80) 98 10/06/19 22:00 20 132/54 Mechanical Ventilator 100 10/06/19 21:30 57 20 141/53 (82) 98 10/06/19 21:00 57 20 138/52 (80) 97 10/06/19 21:00 20 135/52 Mechanical Ventilator 100 10/06/19 21:00 56 138/52 10/06/19 20:30 57 20 138/54 (82) 97 10/06/19 20:00 Mechanical Ventilator Mechanical Ventilator 10/06/19 20:00 98.1 56 20 135/56 (82) 97 10/06/19 20:00 100 10/06/19 20:00 20 135/56 Mechanical Ventilator 100 10/06/19 20:00 59 10/06/19 19:30 57 20 140/54 (82) 95 10/06/19 19:23 57 20 97 Mechanical Ventilator 100 58 20 100 10/06/19 19:00 58 20 137/52 (80) 97 10/06/19 19:00 22 137/52 Mechanical Ventilator 100 10/06/19 18:30 57 20 144/57 (86) 96 10/06/19 18:18 143/57 10/06/19 18:18 62 143/57 10/06/19 18:00 58 20 143/57 (85) 96 10/06/19 18:00 20 143/57 Mechanical Ventilator 100 10/06/19 17:30 61 20 145/58 (87) 98 10/06/19 17:12 63 20 100 10/06/19 17:00 66 22 145/58 (87) 97 10/06/19 17:00 21 145/58 Mechanical Ventilator 100 10/06/19 16:30 61 20 138/55 (82) 99 10/06/19 16:00 98.2 65 26 150/62 (91) 100 10/06/19 16:00 22 140/60 Mechanical Ventilator 100 10/06/19 16:00 100 10/06/19 16:00 63 10/06/19 16:00 Mechanical Ventilator Mechanical Ventilator 10/06/19 15:45 22 150/62 Mechanical Ventilator 100 10/06/19 15:30 65 22 135/54 (81) 100 10/06/19 15:30 22 140/60 Mechanical Ventilator 100 10/06/19 15:15 21 135/54 Mechanical Ventilator 100 10/06/19 15:12 63 20 100 10/06/19 15:00 20 146/59 Mechanical Ventilator 100 10/06/19 15:00 63 19 146/59 (88) 98 10/06/19 14:30 58 20 127/50 (75) 97 10/06/19 14:00 20 132/50 Mechanical Ventilator 100 10/06/19 14:00 58 20 132/50 (77) 97 10/06/19 13:32 56 20 97 Mechanical Ventilator 100 59 20 100 10/06/19 13:30 58 20 140/55 (83) 97 10/06/19 13:00 57 20 123/48 (73) 97 10/06/19 13:00 20 132/50 Mechanical Ventilator 100 10/06/19 12:30 58 20 122/51 (74) 97 10/06/19 12:25 20 120/48 Mechanical Ventilator 100 10/06/19 12:00 59 10/06/19 12:00 98.1 58 20 120/48 (72) 97 10/06/19 12:00 20 120/48 Mechanical Ventilator 100 10/06/19 12:00 100 10/06/19 12:00 Mechanical Ventilator Mechanical Ventilator 10/06/19 11:34 56 117/46 10/06/19 11:30 58 20 117/46 (69) 98 10/06/19 11:00 20 127/68 Mechanical Ventilator 100 10/06/19 11:00 63 20 127/68 (87) 94 10/06/19 10:47 60 20 100 Objective: General Appearance: no apparent distress, bedridden middle age chronically ill looking female on vent AC 500-20- 100%, PEEP 5, sedated Lines, tubes and drains: left jugular HD catheter HEENT: normocephalic, atraumatic, anicteric, trach - Shiley #7 cuffed XLT, secretions moderate amount, yellow color , thick consistency Respiratory/Chest: no accessory muscle use, few scattered rhonchi bilaterally , Cardiovascular/Chest: normal rate, regular rhythm - SR on tele Abdomen: normal bowel sounds, non tender, soft, G tube Genitourinary/Rectal: [place] Extremities: no edema Skin Exam: warm/dry, multiple tattoos all over the body Neurologic: abnormal gait, sedated Musculoskeletal: atrophy - BLE Accucheck: 88 Critical Care - Subjective ROS Limited/Unobtainable: Yes Interval Events: remains on 100% FiO2 still on Fentanyl gtt CXR with increased bilateral pulmonary opacities remains abaxile no leukocytosis no HD done for few days Condition: critical IV Access: central - L internal jugular HD cath intact EKG Rhythm: Sinus Rhythm FI02: 100 Vent Support Breath Rate: 20 Vent Support Mode: AC Vent Tidal Volume: 500 Sputum Amount: Small PEEP: 5.0 PIP: 22 Drips: Fentanyl gtt 200 mcg/hr Tube Feeding Amount: 40 I&O: Intake and Output 10/06/19 10/07/19 19:00 07:00 Intake Total 810.85 ml 920 ml Output Total 75 ml 75 ml Balance 735.85 ml 845 ml Intake Free Water 100 ml 100 ml IV Total 230.85 ml 240 ml Tube Feeding 480 ml 480 ml Other 100 ml Output Urine Total 75 ml 75 ml # Bowel Movements 1 2 CXR: 10/05 - Reduced lung volumes. Bilateral pulmonary opacities. Could be from edema and/or pneumonia. Yara Castro NP Oct 07, 2019 10:34
--- NOTE | 2019-10-07 10:42 | General Progress Note ---
Assessment/Plan Problem List: (1) S/P aortic dissection repair ICD Codes: Z98.890 - Other specified postprocedural states SNOMED: 159033687, 394966039 (2) Sacral decubitus ulcer, stage IV ICD Codes: L89.154 - Pressure ulcer of sacral region, stage 4 SNOMED: 051628748, 658065058 (3) Anemia ICD Codes: D64.9 - Anemia, unspecified SNOMED: 793202223 (4) GT CLOGGED (5) Feeding by G-tube ICD Codes: Z93.1 - Gastrostomy status SNOMED: 931555807, 485566232 (6) Tracheostomy in place ICD Codes: Z93.0 - Tracheostomy status SNOMED: 180461735 (7) Pacemaker ICD Codes: Z95.0 - Presence of cardiac pacemaker SNOMED: 036415469 (8) Chronic respiratory failure ICD Codes: J96.10 - Chronic respiratory failure, unspecified whether with hypoxia or hypercapnia SNOMED: 70724345 Assessment/Plan: GTF monitor for residuals repeat labs ICU care on lactulose Subjective ROS Limited/Unobtainable: No Allergies: Coded Allergies: No Known Allergies (Unverified , 10/10/17) Objective Last 24 Hour Vital Signs Date Time Temp Pulse Resp B/P (MAP) Pulse Ox O2 Delivery O2 Flow Rate FiO2 10/07/19 10:00 20 157/62 Endotracheal Tube 80 10/07/19 09:30 62 20 158/62 (94) 98 10/07/19 09:21 143/55 10/07/19 09:10 58 20 100 10/07/19 09:00 58 20 143/55 (84) 96 10/07/19 09:00 20 143/55 Mechanical Ventilator 100 10/07/19 08:30 58 20 147/56 (86) 96 10/07/19 08:00 98.2 58 20 160/60 (93) 98 10/07/19 08:00 20 160/60 Mechanical Ventilator 100 10/07/19 08:00 100 10/07/19 08:00 Mechanical Ventilator Mechanical Ventilator 10/07/19 07:31 54 20 98 Mechanical Ventilator 100 54 20 100 10/07/19 07:30 54 19 156/61 (92) 98 10/07/19 07:00 20 150/58 Mechanical Ventilator 100 10/07/19 07:00 54 20 150/58 (88) 98 10/07/19 06:30 54 20 145/56 (85) 99 10/07/19 06:00 20 143/59 Mechanical Ventilator 100 10/07/19 06:00 55 20 143/59 (87) 99 10/07/19 05:43 55 143/55 10/07/19 05:30 56 20 143/55 (84) 99 10/07/19 05:00 20 147/54 Mechanical Ventilator 100 10/07/19 05:00 57 20 147/54 (85) 99 10/07/19 04:30 56 20 159/61 (93) 99 10/07/19 04:00 100 10/07/19 04:00 97.6 56 20 162/62 (95) 99 10/07/19 04:00 56 10/07/19 04:00 Mechanical Ventilator Mechanical Ventilator 10/07/19 04:00 20 162/62 Mechanical Ventilator 100 10/07/19 03:30 56 20 152/58 (89) 100 10/07/19 03:22 63 20 100 10/07/19 03:00 20 155/58 Mechanical Ventilator 100 10/07/19 03:00 56 20 155/58 (90) 100 10/07/19 02:30 60 20 148/58 (88) 99 10/07/19 02:00 55 20 157/62 (93) 99 10/07/19 02:00 20 157/62 Mechanical Ventilator 100 10/07/19 01:30 55 20 154/60 (91) 99 10/07/19 01:07 55 20 99 Mechanical Ventilator 100 55 20 100 10/07/19 01:00 56 20 142/58 (86) 98 10/07/19 01:00 20 142/58 Mechanical Ventilator 100 10/07/19 00:30 55 20 144/58 (86) 98 10/07/19 00:14 20 145/54 Mechanical Ventilator 100 10/07/19 00:00 55 10/07/19 00:00 100 10/07/19 00:00 20 145/54 Mechanical Ventilator 100 10/07/19 00:00 56 145/54 10/07/19 00:00 98.0 55 20 145/54 (84) 98 10/07/19 00:00 Mechanical Ventilator Mechanical Ventilator 10/06/19 23:30 56 20 142/55 (84) 99 10/06/19 23:03 56 20 100 10/06/19 23:00 58 20 132/60 (84) 98 10/06/19 23:00 20 132/60 Mechanical Ventilator 100 10/06/19 22:30 58 20 134/52 (79) 98 10/06/19 22:00 57 20 132/54 (80) 98 10/06/19 22:00 20 132/54 Mechanical Ventilator 100 10/06/19 21:30 57 20 141/53 (82) 98 10/06/19 21:00 57 20 138/52 (80) 97 10/06/19 21:00 20 135/52 Mechanical Ventilator 100 10/06/19 21:00 56 138/52 10/06/19 20:30 57 20 138/54 (82) 97 10/06/19 20:00 Mechanical Ventilator Mechanical Ventilator 10/06/19 20:00 98.1 56 20 135/56 (82) 97 10/06/19 20:00 100 10/06/19 20:00 20 135/56 Mechanical Ventilator 100 10/06/19 20:00 59 10/06/19 19:30 57 20 140/54 (82) 95 10/06/19 19:23 57 20 97 Mechanical Ventilator 100 58 20 100 10/06/19 19:00 58 20 137/52 (80) 97 10/06/19 19:00 22 137/52 Mechanical Ventilator 100 10/06/19 18:30 57 20 144/57 (86) 96 10/06/19 18:18 143/57 10/06/19 18:18 62 143/57 10/06/19 18:00 58 20 143/57 (85) 96 10/06/19 18:00 20 143/57 Mechanical Ventilator 100 10/06/19 17:30 61 20 145/58 (87) 98 10/06/19 17:12 63 20 100 10/06/19 17:00 66 22 145/58 (87) 97 10/06/19 17:00 21 145/58 Mechanical Ventilator 100 10/06/19 16:30 61 20 138/55 (82) 99 10/06/19 16:00 98.2 65 26 150/62 (91) 100 10/06/19 16:00 22 140/60 Mechanical Ventilator 100 8/23/20 16:00 100 10/06/19 16:00 63 10/06/19 16:00 Mechanical Ventilator Mechanical Ventilator 10/06/19 15:45 22 150/62 Mechanical Ventilator 100 10/06/19 15:30 65 22 135/54 (81) 100 10/06/19 15:30 22 140/60 Mechanical Ventilator 100 10/06/19 15:15 21 135/54 Mechanical Ventilator 100 10/06/19 15:12 63 20 100 10/06/19 15:00 20 146/59 Mechanical Ventilator 100 10/06/19 15:00 63 19 146/59 (88) 98 10/06/19 14:30 58 20 127/50 (75) 97 10/06/19 14:00 20 132/50 Mechanical Ventilator 100 10/06/19 14:00 58 20 132/50 (77) 97 10/06/19 13:32 56 20 97 Mechanical Ventilator 100 59 20 100 10/06/19 13:30 58 20 140/55 (83) 97 10/06/19 13:00 57 20 123/48 (73) 97 10/06/19 13:00 20 132/50 Mechanical Ventilator 100 10/06/19 12:30 58 20 122/51 (74) 97 10/06/19 12:25 20 120/48 Mechanical Ventilator 100 10/06/19 12:00 59 10/06/19 12:00 98.1 58 20 120/48 (72) 97 10/06/19 12:00 20 120/48 Mechanical Ventilator 100 10/06/19 12:00 100 10/06/19 12:00 Mechanical Ventilator Mechanical Ventilator 10/06/19 11:34 56 117/46 10/06/19 11:30 58 20 117/46 (69) 98 10/06/19 11:00 20 127/68 Mechanical Ventilator 100 10/06/19 11:00 63 20 127/68 (87) 94 10/06/19 10:47 60 20 100 Intake and Output 10/06/19 10/07/19 19:00 07:00 Intake Total 810.85 ml 920 ml Output Total 75 ml 75 ml Balance 735.85 ml 845 ml Intake Free Water 100 ml 100 ml IV Total 230.85 ml 240 ml Tube Feeding 480 ml 480 ml Other 100 ml Output Urine Total 75 ml 75 ml # Bowel Movements 1 2 Laboratory Tests 10/06/19 23:12: POC Whole Blood Glucose 100 10/07/19 05:10: White Blood Count 7.9, Red Blood Count 2.81L, Hemoglobin 8.6L, Hematocrit 27.3L , Mean Corpuscular Volume 97, Mean Corpuscular Hemoglobin 30.5, Mean Corpuscular Hemoglobin Concent 31.5L, Red Cell Distribution Width 15.1H, Platelet Count 412, Mean Platelet Volume 5.7L, Neutrophils (%) (Auto) 66.7, Lymphocytes (%) (Auto) 21.4, Monocytes (%) (Auto) 6.9, Eosinophils (%) (Auto) 3.9H, Basophils (%) (Auto) 1.1, Sodium Level 140, Potassium Level 4.0, Chloride Level 102, Carbon Dioxide Level 26, Anion Gap 12, Blood Urea Nitrogen 80H, Creatinine 3.3H, Estimat Glomerular Filtration Rate 15.0, Glucose Level 85, Calcium Level 9.6, Phosphorus Level 5.7H, Magnesium Level 3.5H, Total Bilirubin 0.3, Aspartate Amino Transf (AST/SGOT) 21, Alanine Aminotransferase (ALT/SGPT) 8L, Alkaline Phosphatase 157H, C-Reactive Protein, Quantitative 10.9H, Pro-B- Type Natriuretic Peptide > 82686B, Total Protein 6.7, Albumin 1.6L, Globulin 5.1 , Albumin/Globulin Ratio 0.3L 10/07/19 05:11: POC Whole Blood Glucose 88 Height (Feet): 5 Height (Inches): 5.00 Weight (Pounds): 145 General Appearance: lethargic EENT: normal ENT inspection Neck: supple Cardiovascular: normal rate Respiratory/Chest: decreased breath sounds Abdomen: normal bowel sounds, non tender, soft Extremities: non-tender Inder Mccauley MD Oct 07, 2019 10:42
--- NOTE | 2019-10-07 11:53 | Infectious Diseases Prog Note ---
Assessment/Plan 49yo F with: Acute hypoxic resp failure: Now on vent, worsening, FiO2 100% > 80% 09/27 Pneumonia, COVID19 neg x3 - worsening MDR PsA pneumonia,s pr x 09/29 CXR: Bilateral edema versus infiltrates appears slightly worse than on the prior study. There is probably some pleural fluid on the left. 09/26 S/P thoracentesis, 900cc removed, only 67 WBC in fluid analysis, unlikely empyema 09/26 CXR: Worsening R perihilar opacity 09/26 BCx NTD 09/24 CXR: Previously demonstrated right lateral basilar lucency is no longer evident, was presumably a skin fold artifact. Bilateral infiltrates and left pleural effusion are probably unchanged allowing for slight differences in technique. 09/22 Resp cx + MDR PsA (S-gent; I-colistin; R-levofloxacin, Zosyn, angelo) 09/22 BCx NTD 09/22 CXR: worsening BL pna 09/22 UA w/ persistent pyuria, now on HD, UCx +VRE, most likely colonizer as improving wo tx for this 09/19 V/Q scan, low probability of PE 09/18 Rapid COVID PCR neg 09/18 CT chest: Markedly suboptimal examination due to lack of IV contrast material. Bilateral pleural effusions, right greater than left, with bilateral lower lobe consolidation or volume loss. Ground glass densities in the upper lobes bilaterally. This is not specific. Tracheostomy. Increased superior mediastinal density. Stability of adenopathy cannot be excluded. Atherosclerotic change. Gastrostomy. Ascites. Left renal stent with left hydronephrosis and renal atrophy. 09/17 Chest US: Trace right and small left pleural effusions. No safe window identified for bedside thoracentesis. Note that the majority of the left pleural effusion is subpulmonic. 09/16 CXR: Worsening of right lung infiltrates and right effusion. V. duplex: NO DVT D-dimer elevated 09/15 Rapid COVID PCR neg 09/15 Sp cx ESBL P. mirablis 09/14 CXR: Bilateral airspace opacities, preferentially involving the right lung, consistent with multifocal infiltrate. Trace bilateral pleural effusions. No pneumothorax. Rapid COVID PCR neg Urine legionella neg 09/16 GPC bacteremia, real vs contaminant; does have hx of infected PPM- could be a possibility- ro endocarditis 09/14 Bcx 03/19 S. epidermis; 09/15 Bcx NTD 2d echo: no vegetations seen UTI 09/14 u/a wbc tnct, nit neg, leuk +3; ucx >100k MDR P. stuarti (S Ceftriaxone, Meropenem) 09/22 UA w/ ongoing pyuria, unchanged Unstageable sacral ulceration Afebrile Leukocytosis, mild; fluctuates bt 12-13 JAVIER on CKD --> now on HD Renal US: Limited exam due to abdominal ascites and shadowing from bowel gas. CT recommended for more sensitive evaluation. Moderate right hydronephrosis. Increased renal parenchymal echogenicity suggesting intrinsic/ medical renal disease. Question indwelling left ureteral stent versus artifact. Bladder not visualized. 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 epi-11/2018, sp > 6weeks IV vancomycin 11/27 SP ABBIE: no evidence for vegetation on any of the valves 11/26/18 SP PPM removal: OR findings:The fibrous capsule enclosing the generator was then opened and there was a enpux-mo-cqhzdeco amount of yellowish fluid drainage. The generator was then removed.Atrial and ventricular leads were detached. The necrotic tissue of the pocket was then removed and the pocket was flushed with an antibiotic solution. Capsule, wound tissue and lead tip cx: Neg 2d echo: no vegetation seen US chest: 4.6 x 3.4 x 0.9 cm hypoechoic/anechoic area overlying left chest pacemaker power pack. This could represent either a discrete fluid collection or a focal area of very edematous tissue. Infected fluid pocket also possible. 11/18 Bcx 3/4 S. epi; 11/20 Bcx neg; 11/24 Bcx Neg; 11/27 Bcx Neg Hx of PNA 11/2019? sp cx PsA (arnett S), ABC (I Ceftriaxone; otherwise negative) Sp cx MRSA, ABC (I Ceftriaxone; otherwise S) PMH: Afib HTN Dysphagia sp GT Aortic dissection s/p repair 2017, S/p PPM Parkinson's Disease Schizophrenia Anxiety COPD Chronic resp failure s/p trach Hx of tracheal bleeding [place] resident ([facility]) Plan: Trend resp status, leukocytosis D/w micro about sending MDR PsA out for further sensi to [facility] and [facility]yc[facility], [facility] lab order signed, sent out of Tuesday 09/26, d/w Micro today, won't have results until 10/06 ([phone]), f/u these results just for future reference Aggressive volume removal as tolerated by HD, BNP >35,000 10/03 SP Zerbaxa #6, gent #7 for MDR PsA pna 09/29 SP vanco #15 for S.epi in BCx 09/27 SP angelo #13 8 SP Cefepime #3, Levaquin #3 Monitor CBC/CMP, temperatures ICU/ trach/ peg care Aspiration precautions D/w RN Thank you for this consultation. Will continue to follow along with you. Subjective Allergies: Coded Allergies: No Known Allergies (Unverified , 10/10/17) afebrile no leukocytosis Fio2 80% off abx Objective Last 24 Hour Vital Signs Date Time Temp Pulse Resp B/P (MAP) Pulse Ox O2 Delivery O2 Flow Rate FiO2 10/07/19 10:00 20 157/62 Endotracheal Tube 80 10/07/19 09:30 62 20 158/62 (94) 98 10/07/19 09:21 143/55 10/07/19 09:10 58 20 100 10/07/19 09:00 58 20 143/55 (84) 96 10/07/19 09:00 20 143/55 Mechanical Ventilator 100 10/07/19 08:30 58 20 147/56 (86) 96 10/07/19 08:00 98.2 58 20 160/60 (93) 98 10/07/19 08:00 20 160/60 Mechanical Ventilator 100 10/07/19 08:00 100 10/07/19 08:00 Mechanical Ventilator Mechanical Ventilator 10/07/19 07:31 54 20 98 Mechanical Ventilator 100 54 20 100 10/07/19 07:30 54 19 156/61 (92) 98 10/07/19 07:00 20 150/58 Mechanical Ventilator 100 10/07/19 07:00 54 20 150/58 (88) 98 10/07/19 06:30 54 20 145/56 (85) 99 10/07/19 06:00 20 143/59 Mechanical Ventilator 100 10/07/19 06:00 55 20 143/59 (87) 99 10/07/19 05:43 55 143/55 10/07/19 05:30 56 20 143/55 (84) 99 10/07/19 05:00 20 147/54 Mechanical Ventilator 100 10/07/19 05:00 57 20 147/54 (85) 99 10/07/19 04:30 56 20 159/61 (93) 99 10/07/19 04:00 100 10/07/19 04:00 97.6 56 20 162/62 (95) 99 10/07/19 04:00 56 10/07/19 04:00 Mechanical Ventilator Mechanical Ventilator 10/07/19 04:00 20 162/62 Mechanical Ventilator 100 10/07/19 03:30 56 20 152/58 (89) 100 10/07/19 03:22 63 20 100 10/07/19 03:00 20 155/58 Mechanical Ventilator 100 10/07/19 03:00 56 20 155/58 (90) 100 10/07/19 02:30 60 20 148/58 (88) 99 10/07/19 02:00 55 20 157/62 (93) 99 10/07/19 02:00 20 157/62 Mechanical Ventilator 100 10/07/19 01:30 55 20 154/60 (91) 99 10/07/19 01:07 55 20 99 Mechanical Ventilator 100 55 20 100 10/07/19 01:00 56 20 142/58 (86) 98 10/07/19 01:00 20 142/58 Mechanical Ventilator 100 10/07/19 00:30 55 20 144/58 (86) 98 10/07/19 00:14 20 145/54 Mechanical Ventilator 100 10/07/19 00:00 55 10/07/19 00:00 100 10/07/19 00:00 20 145/54 Mechanical Ventilator 100 10/07/19 00:00 56 145/54 10/07/19 00:00 98.0 55 20 145/54 (84) 98 10/07/19 00:00 Mechanical Ventilator Mechanical Ventilator 10/06/19 23:30 56 20 142/55 (84) 99 10/06/19 23:03 56 20 100 10/06/19 23:00 58 20 132/60 (84) 98 10/06/19 23:00 20 132/60 Mechanical Ventilator 100 10/06/19 22:30 58 20 134/52 (79) 98 10/06/19 22:00 57 20 132/54 (80) 98 10/06/19 22:00 20 132/54 Mechanical Ventilator 100 10/06/19 21:30 57 20 141/53 (82) 98 10/06/19 21:00 57 20 138/52 (80) 97 10/06/19 21:00 20 135/52 Mechanical Ventilator 100 10/06/19 21:00 56 138/52 10/06/19 20:30 57 20 138/54 (82) 97 10/06/19 20:00 Mechanical Ventilator Mechanical Ventilator 10/06/19 20:00 98.1 56 20 135/56 (82) 97 10/06/19 20:00 100 10/06/19 20:00 20 135/56 Mechanical Ventilator 100 10/06/19 20:00 59 10/06/19 19:30 57 20 140/54 (82) 95 10/06/19 19:23 57 20 97 Mechanical Ventilator 100 58 20 100 10/06/19 19:00 58 20 137/52 (80) 97 10/06/19 19:00 22 137/52 Mechanical Ventilator 100 10/06/19 18:30 57 20 144/57 (86) 96 10/06/19 18:18 143/57 10/06/19 18:18 62 143/57 10/06/19 18:00 58 20 143/57 (85) 96 10/06/19 18:00 20 143/57 Mechanical Ventilator 100 10/06/19 17:30 61 20 145/58 (87) 98 10/06/19 17:12 63 20 100 10/06/19 17:00 66 22 145/58 (87) 97 10/06/19 17:00 21 145/58 Mechanical Ventilator 100 10/06/19 16:30 61 20 138/55 (82) 99 10/06/19 16:00 98.2 65 26 150/62 (91) 100 10/06/19 16:00 22 140/60 Mechanical Ventilator 100 10/06/19 16:00 100 10/06/19 16:00 63 10/06/19 16:00 Mechanical Ventilator Mechanical Ventilator 10/06/19 15:45 22 150/62 Mechanical Ventilator 100 10/06/19 15:30 65 22 135/54 (81) 100 10/06/19 15:30 22 140/60 Mechanical Ventilator 100 10/06/19 15:15 21 135/54 Mechanical Ventilator 100 10/06/19 15:12 63 20 100 8/23/20 15:00 20 146/59 Mechanical Ventilator 100 10/06/19 15:00 63 19 146/59 (88) 98 10/06/19 14:30 58 20 127/50 (75) 97 10/06/19 14:00 20 132/50 Mechanical Ventilator 100 10/06/19 14:00 58 20 132/50 (77) 97 10/06/19 13:32 56 20 97 Mechanical Ventilator 100 59 20 100 10/06/19 13:30 58 20 140/55 (83) 97 10/06/19 13:00 57 20 123/48 (73) 97 10/06/19 13:00 20 132/50 Mechanical Ventilator 100 10/06/19 12:30 58 20 122/51 (74) 97 10/06/19 12:25 20 120/48 Mechanical Ventilator 100 10/06/19 12:00 59 10/06/19 12:00 98.1 58 20 120/48 (72) 97 10/06/19 12:00 20 120/48 Mechanical Ventilator 100 10/06/19 12:00 100 10/06/19 12:00 Mechanical Ventilator Mechanical Ventilator Height (Feet): 5 Height (Inches): 5.00 Weight (Pounds): 145 Cardiovascular: RrR Respiratory: decreased breath sounds Abdomen: soft, non-tender, present bowel sounds Extremities: no edema, no tenderness, no cyanosis Laboratory Tests Test 10/06/19 23:12 10/07/19 05:10 10/07/19 05:11 POC Whole Blood Glucose 100 MG/DL (74-106) 88 MG/DL (74-106) White Blood Count 7.9 K/UL (4.8-10.8) Red Blood Count 2.81 M/UL (4.20-5.40) L Hemoglobin 8.6 G/DL (12.0-16.0) L Hematocrit 27.3 % (37.0-47.0) L Mean Corpuscular Volume 97 FL (80-99) Mean Corpuscular Hemoglobin 30.5 PG (27.0-31.0) Mean Corpuscular Hemoglobin Concent 31.5 G/DL (32.0-36.0) L Red Cell Distribution Width 15.1 % (11.6-14.8) H Platelet Count 412 K/UL (150-450) Mean Platelet Volume 5.7 FL (6.5-10.1) L Neutrophils (%) (Auto) 66.7 % (45.0-75.0) Lymphocytes (%) (Auto) 21.4 % (20.0-45.0) Monocytes (%) (Auto) 6.9 % (1.0-10.0) Eosinophils (%) (Auto) 3.9 % (0.0-3.0) H Basophils (%) (Auto) 1.1 % (0.0-2.0) Sodium Level 140 MMOL/L (136-145) Potassium Level 4.0 MMOL/L (3.5-5.1) Chloride Level 102 MMOL/L (98-107) Carbon Dioxide Level 26 MMOL/L (21-32) Anion Gap 12 mmol/L (5-15) Blood Urea Nitrogen 80 mg/dL (7-18) H Creatinine 3.3 MG/DL (0.55-1.30) H Estimat Glomerular Filtration Rate 15.0 mL/min (>60) Glucose Level 85 MG/DL (74-106) Calcium Level 9.6 MG/DL (8.5-10.1) Phosphorus Level 5.7 MG/DL (2.5-4.9) H Magnesium Level 3.5 MG/DL (1.8-2.4) H Total Bilirubin 0.3 MG/DL (0.2-1.0) Aspartate Amino Transf (AST/SGOT) 21 U/L (15-37) Alanine Aminotransferase (ALT/SGPT) 8 U/L (12-78) L Alkaline Phosphatase 157 U/L (46-116) H C-Reactive Protein, Quantitative 10.9 mg/dL (0.00-0.90) H Pro-B-Type Natriuretic Peptide > 24693 pg/mL (0-125) H Total Protein 6.7 G/DL (6.4-8.2) Albumin 1.6 G/DL (3.4-5.0) L Globulin 5.1 g/dL Albumin/Globulin Ratio 0.3 (1.0-2.7) L Current Medications Medications (Trade) Dose Ordered Sig/Penny Route PRN Reason Start Time Stop Time Status Last Admin Dose Admin Acetaminophen (Tylenol) 325 mg Q6H PRN GT Temp >100.5 09/23/19 10:45 10/23/19 10:44 09/23/19 18:55 Albuterol/ Ipratropium (Albuterol/ Ipratropium) 3 ml Q6HRT HHN 10/04/19 13:00 10/09/19 12:59 10/07/19 07:31 Ascorbic Acid (Vitamin C) 500 mg DAILY ORAL 10/06/19 09:00 11/05/19 08:59 10/07/19 09:20 Chlorhexidine Gluconate (Ling-Hex 2%) 1 applic DAILY@2000 TOPIC 09/23/19 20:00 12/22/19 19:59 10/06/19 19:33 Dextrose (Dextrose 50%) 25 ml Q30M PRN IV Hypoglycemia 10/05/19 18:30 01/03/20 18:29 Dextrose (Dextrose 50%) 50 ml Q30M PRN IV Hypoglycemia 10/05/19 18:30 01/03/20 18:29 Diltiazem HCl (Cardizem Tab) 60 mg Q6HR GT 10/04/19 18:00 11/03/19 17:59 10/06/19 18:18 Docusate Sodium (Colace) 100 mg Q8H GT 09/29/19 08:30 10/29/19 08:29 10/07/19 09:19 Epoetin Gelacio (Epoetin Gelacio(ESRD on dialysis)) 10,000 unit MON- SUBQ 09/25/19 21:00 12/24/19 20:59 10/04/19 20:59 Fentanyl Citrate 250 ml @ 0 mls/hr Q24H IV 10/06/19 12:30 10/09/19 12:29 10/07/19 00:14 Heparin Sodium (Porcine) (Heparin 5000 units/ml) 5,000 units EVERY 12 HOURS SUBQ 09/17/19 21:00 10/30/19 08:59 10/07/19 09:22 Hydralazine HCl (Apresoline) 10 mg Q4H PRN IV BP over 160 systolic 09/17/19 11:15 12/14/19 11:14 10/04/19 09:04 Insulin Aspart (NovoLOG) Q6HR SUBQ 10/06/19 00:00 01/03/20 20:59 Lactulose (Cephulac) 10 gm THREE TIMES A DAY ORAL 10/03/19 13:00 11/02/19 12:59 10/07/19 09:19 Lansoprazole (Prevacid) 30 mg Q12HR GT 09/27/19 21:00 10/27/19 20:59 10/07/19 09:19 Lisinopril (ZestriL) 10 mg BID GT 10/06/19 18:00 11/03/19 13:29 10/07/19 09:21 Metoclopramide HCl (Reglan) 10 mg Q8H IVP 09/29/19 14:00 10/29/19 13:59 10/07/19 05:43 Metoprolol Tartrate (Lopressor) 50 mg EVERY 12 HOURS GT 10/04/19 21:00 12/14/19 20:59 10/06/19 08:29 Midazolam HCl (Versed 2mg/2ml vial) 1 mg Q4H PRN IVP For Anxiety 09/21/19 09:30 12/20/19 09:29 10/04/19 14:47 Minoxidil (Loniten) 2.5 mg Q6HR PRN GT BP OVER 170 SYST 10/05/19 08:30 12/31/19 13:59 Polyethylene Glycol (Miralax) 17 gm BEDTIME ORAL 10/01/19 21:00 10/31/19 20:59 10/06/19 21:07 Risperidone (RisperDAL) 2 mg BEDTIME ORAL 10/05/19 21:00 11/19/19 20:59 10/06/19 21:06 Sertraline HCl (Zoloft) 100 mg BEDTIME GT 09/17/19 21:00 10/15/19 20:59 10/06/19 21:06 Sorbitol (sorbitoL) 30 ml EVERY 6 HOURS PRN GT Constipation 09/29/19 18:00 10/29/19 17:59 10/01/19 00:44 Tramadol HCl (Ultram) 25 mg Q6H GT 10/07/19 11:00 10/14/19 10:59 10/07/19 11:06 Vitamin B Complex/ Vit C/Folic Acid (Nephrovite) 1 tab DAILY ORAL 10/06/19 09:00 11/05/19 08:59 10/07/19 09:20 Zinc Sulfate (Zinc Sulfate) 220 mg DAILY ORAL 10/06/19 09:00 10/16/19 08:59 10/07/19 09:20 Doreen Nino M.D. Oct 07, 2019 11:53
--- NOTE | 2019-10-07 12:39 | Surgery Progress Note ---
Surgery Progress Note Subjective Additional Comments fi02 80% peep 5 on fent gtt still comfortable no n/v Objective Last 24 Hour Vital Signs Date Time Temp Pulse Resp B/P (MAP) Pulse Ox O2 Delivery O2 Flow Rate FiO2 10/07/19 12:15 58 20 10/07/19 12:00 98.2 58 20 141/59 (86) 10/07/19 12:00 Mechanical Ventilator Mechanical Ventilator 10/07/19 12:00 80 10/07/19 12:00 58 141/59 10/07/19 11:30 64 19 144/75 (98) 92 10/07/19 11:00 65 21 174/70 (104) 98 10/07/19 10:30 60 20 149/56 (87) 94 10/07/19 10:00 20 157/62 Endotracheal Tube 80 10/07/19 10:00 62 20 157/62 (93) 95 10/07/19 09:50 80 10/07/19 09:30 62 20 158/62 (94) 98 10/07/19 09:21 143/55 10/07/19 09:10 58 20 100 10/07/19 09:00 58 20 143/55 (84) 96 10/07/19 09:00 20 143/55 Mechanical Ventilator 100 10/07/19 08:30 58 20 147/56 (86) 96 10/07/19 08:00 98.2 58 20 160/60 (93) 98 10/07/19 08:00 20 160/60 Mechanical Ventilator 100 10/07/19 08:00 100 10/07/19 08:00 Mechanical Ventilator Mechanical Ventilator 10/07/19 07:31 54 20 98 Mechanical Ventilator 100 54 20 100 10/07/19 07:30 54 19 156/61 (92) 98 10/07/19 07:00 20 150/58 Mechanical Ventilator 100 10/07/19 07:00 54 20 150/58 (88) 98 10/07/19 06:30 54 20 145/56 (85) 99 10/07/19 06:00 20 143/59 Mechanical Ventilator 100 10/07/19 06:00 55 20 143/59 (87) 99 10/07/19 05:43 55 143/55 10/07/19 05:30 56 20 143/55 (84) 99 10/07/19 05:00 20 147/54 Mechanical Ventilator 100 10/07/19 05:00 57 20 147/54 (85) 99 10/07/19 04:30 56 20 159/61 (93) 99 10/07/19 04:00 100 10/07/19 04:00 97.6 56 20 162/62 (95) 99 10/07/19 04:00 56 10/07/19 04:00 Mechanical Ventilator Mechanical Ventilator 10/07/19 04:00 20 162/62 Mechanical Ventilator 100 10/07/19 03:30 56 20 152/58 (89) 100 10/07/19 03:22 63 20 100 10/07/19 03:00 20 155/58 Mechanical Ventilator 100 10/07/19 03:00 56 20 155/58 (90) 100 10/07/19 02:30 60 20 148/58 (88) 99 10/07/19 02:00 55 20 157/62 (93) 99 10/07/19 02:00 20 157/62 Mechanical Ventilator 100 10/07/19 01:30 55 20 154/60 (91) 99 10/07/19 01:07 55 20 99 Mechanical Ventilator 100 55 20 100 10/07/19 01:00 56 20 142/58 (86) 98 10/07/19 01:00 20 142/58 Mechanical Ventilator 100 10/07/19 00:30 55 20 144/58 (86) 98 10/07/19 00:14 20 145/54 Mechanical Ventilator 100 10/07/19 00:00 55 10/07/19 00:00 100 10/07/19 00:00 20 145/54 Mechanical Ventilator 100 10/07/19 00:00 56 145/54 10/07/19 00:00 98.0 55 20 145/54 (84) 98 10/07/19 00:00 Mechanical Ventilator Mechanical Ventilator 10/06/19 23:30 56 20 142/55 (84) 99 10/06/19 23:03 56 20 100 10/06/19 23:00 58 20 132/60 (84) 98 10/06/19 23:00 20 132/60 Mechanical Ventilator 100 10/06/19 22:30 58 20 134/52 (79) 98 10/06/19 22:00 57 20 132/54 (80) 98 10/06/19 22:00 20 132/54 Mechanical Ventilator 100 8/23/20 21:30 57 20 141/53 (82) 98 10/06/19 21:00 57 20 138/52 (80) 97 10/06/19 21:00 20 135/52 Mechanical Ventilator 100 10/06/19 21:00 56 138/52 10/06/19 20:30 57 20 138/54 (82) 97 10/06/19 20:00 Mechanical Ventilator Mechanical Ventilator 10/06/19 20:00 98.1 56 20 135/56 (82) 97 10/06/19 20:00 100 10/06/19 20:00 20 135/56 Mechanical Ventilator 100 10/06/19 20:00 59 10/06/19 19:30 57 20 140/54 (82) 95 10/06/19 19:23 57 20 97 Mechanical Ventilator 100 58 20 100 10/06/19 19:00 58 20 137/52 (80) 97 10/06/19 19:00 22 137/52 Mechanical Ventilator 100 10/06/19 18:30 57 20 144/57 (86) 96 10/06/19 18:18 143/57 10/06/19 18:18 62 143/57 10/06/19 18:00 58 20 143/57 (85) 96 10/06/19 18:00 20 143/57 Mechanical Ventilator 100 10/06/19 17:30 61 20 145/58 (87) 98 10/06/19 17:12 63 20 100 10/06/19 17:00 66 22 145/58 (87) 97 10/06/19 17:00 21 145/58 Mechanical Ventilator 100 10/06/19 16:30 61 20 138/55 (82) 99 10/06/19 16:00 98.2 65 26 150/62 (91) 100 10/06/19 16:00 22 140/60 Mechanical Ventilator 100 10/06/19 16:00 100 10/06/19 16:00 63 10/06/19 16:00 Mechanical Ventilator Mechanical Ventilator 10/06/19 15:45 22 150/62 Mechanical Ventilator 100 10/06/19 15:30 65 22 135/54 (81) 100 10/06/19 15:30 22 140/60 Mechanical Ventilator 100 10/06/19 15:15 21 135/54 Mechanical Ventilator 100 10/06/19 15:12 63 20 100 10/06/19 15:00 20 146/59 Mechanical Ventilator 100 10/06/19 15:00 63 19 146/59 (88) 98 10/06/19 14:30 58 20 127/50 (75) 97 10/06/19 14:00 20 132/50 Mechanical Ventilator 100 10/06/19 14:00 58 20 132/50 (77) 97 10/06/19 13:32 56 20 97 Mechanical Ventilator 100 59 20 100 10/06/19 13:30 58 20 140/55 (83) 97 10/06/19 13:00 57 20 123/48 (73) 97 10/06/19 13:00 20 132/50 Mechanical Ventilator 100 I&O Intake and Output 10/06/19 10/07/19 19:00 07:00 Intake Total 810.85 ml 920 ml Output Total 75 ml 75 ml Balance 735.85 ml 845 ml Intake Free Water 100 ml 100 ml IV Total 230.85 ml 240 ml Tube Feeding 480 ml 480 ml Other 100 ml Output Urine Total 75 ml 75 ml # Bowel Movements 1 2 Dressing: saturated Cardiovascular: RSR Respiratory: decreased breath sounds Abdomen: soft, non-tender, present bowel sounds, non-distended Extremities: no edema, no tenderness, no cyanosis, pulses, other Laboratory Tests Test 10/06/19 23:12 10/07/19 05:10 10/07/19 05:11 POC Whole Blood Glucose 100 MG/DL (74-106) 88 MG/DL (74-106) White Blood Count 7.9 K/UL (4.8-10.8) Red Blood Count 2.81 M/UL (4.20-5.40) L Hemoglobin 8.6 G/DL (12.0-16.0) L Hematocrit 27.3 % (37.0-47.0) L Mean Corpuscular Volume 97 FL (80-99) Mean Corpuscular Hemoglobin 30.5 PG (27.0-31.0) Mean Corpuscular Hemoglobin Concent 31.5 G/DL (32.0-36.0) L Red Cell Distribution Width 15.1 % (11.6-14.8) H Platelet Count 412 K/UL (150-450) Mean Platelet Volume 5.7 FL (6.5-10.1) L Neutrophils (%) (Auto) 66.7 % (45.0-75.0) Lymphocytes (%) (Auto) 21.4 % (20.0-45.0) Monocytes (%) (Auto) 6.9 % (1.0-10.0) Eosinophils (%) (Auto) 3.9 % (0.0-3.0) H Basophils (%) (Auto) 1.1 % (0.0-2.0) Sodium Level 140 MMOL/L (136-145) Potassium Level 4.0 MMOL/L (3.5-5.1) Chloride Level 102 MMOL/L (98-107) Carbon Dioxide Level 26 MMOL/L (21-32) Anion Gap 12 mmol/L (5-15) Blood Urea Nitrogen 80 mg/dL (7-18) H Creatinine 3.3 MG/DL (0.55-1.30) H Estimat Glomerular Filtration Rate 15.0 mL/min (>60) Glucose Level 85 MG/DL (74-106) Calcium Level 9.6 MG/DL (8.5-10.1) Phosphorus Level 5.7 MG/DL (2.5-4.9) H Magnesium Level 3.5 MG/DL (1.8-2.4) H Total Bilirubin 0.3 MG/DL (0.2-1.0) Aspartate Amino Transf (AST/SGOT) 21 U/L (15-37) Alanine Aminotransferase (ALT/SGPT) 8 U/L (12-78) L Alkaline Phosphatase 157 U/L (46-116) H C-Reactive Protein, Quantitative 10.9 mg/dL (0.00-0.90) H Pro-B-Type Natriuretic Peptide > 38166 pg/mL (0-125) H Total Protein 6.7 G/DL (6.4-8.2) Albumin 1.6 G/DL (3.4-5.0) L Globulin 5.1 g/dL Albumin/Globulin Ratio 0.3 (1.0-2.7) L Plan Problems: (1) Anemia (2) Proteinuria (3) UTI (urinary tract infection) (4) ARF (acute renal failure) (5) ACS (acute coronary syndrome) (6) Respiratory failure, acute and chronic (7) HCAP (healthcare-associated pneumonia) (8) Abrasion of lip, initial encounter (9) COPD with exacerbation (10) Hypokalemia (11) Sepsis Assessment & Plan: Leukocytosis, anemia, abnormal labs. 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 Berkowitz air mattress turn q2h nutritional tf will follow with recs thank you CT noted pending VQ scan - noted poor study low prob PE work respiratory increasing needs sedation weaning vent settings 80% peep 10 now comfortable Hd line in receiving HD plan for left thora 09/26 (12) Chronic respiratory failure (13) Ascites (14) Bacteremia (15) Hypernatremia (16) Pleural effusion (17) Pacemaker (18) Aortic dissection, thoracic (19) Tracheostomy in place Assessment & Plan: trach stable no bleeding currently likely tongue etiology of mild oozing currently hemostatic without trauma (20) Feeding by G-tube Assessment & Plan: okay to resume tube feeds via g tube patent and functional dressings okay DAILY ESTIMATED NEEDS: Needs based on Pulmonary, wound 49kg 30-35 kcals/kg 0950-1096 total kcals 1.25-2 g protein/kg 61-98 g total protein Fluid per MD NUTRITION DIAGNOSIS: * Swallowing difficulty R/T dysphagia, respiratory status as evidenced by vent dep via T-collar, GT Dep. (CURRENT TF: Nepro @45ml/hr x 24 hrs) ENTERAL NUTRITION RECOMMENDATIONS: Nepro @ 40ml/hr x 24 hrs to provide 960ml, 1728kcal, 78g prot, 698ml free water * Rec LOWER current rate to 40ml/hr for 24 hrs run. 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 Base of wound is granular with bone exposure at base of sacrococcygeal.(L)10.5cm x (W06.5cm x (D) 2.8cm , undermining 11-3 by 3.6cm @12 o'clock. small amt serosanguineous exudate noted . [place] epithelial along edges bordered by darker skin tone without erythema. Resolving Pressure injury L ischium. Base of wound is 95% pink epithelial ,5% noni at center base of wound. No exudate noted. Both heels are boggy with non-Blanching erythema. Tx.plan: Cleanse Sacral wound with Saline. Loosely pack with Hydrogel impregnated Kerlix. Apply Moisture Barrier Periwound. Cover with Optifoam drsg Daily and prn. Apply Moisture Barrier paste to L Ischium. Cover with Optifoam drsg. Changee very 3 days and prn. Apply Cavilon Skin Barrier to both heels. Cover each heel with Optifoam drsgs. Change every 7 days and prn. Reposition at least every 2hours or as tolerated. Off-load heels with pillow. APM/JENNIFER Mattress overlay. Lane Saavedra Oct 07, 2019 12:38
--- NOTE | 2019-10-07 13:38 | Nephrology Progress Note ---
Assessment/Plan Problem List: (1) JAVIER (acute kidney injury) (2) Renal failure (ARF), acute on chronic (3) Dehydration (4) Electrolyte imbalance (5) Anemia (6) Respiratory failure, acute and chronic (7) COPD with exacerbation Assessment Patient is presented with sepsis and pneumonia and UTI Patient has acute renal failure, possible underlying chronic kidney failure Severe anemia Electrolyte imbalances: Hyponatremia, hypo-kalemia Chronic respiratory failure, COPD exacerbation Plan October 06: Labs reviewed. Discussed with pulmonary. Will attempt dialysis and ultrafiltration. Continue per consultants. October 05: Lab reviewed. Serum creatinine rising. Blood pressure stabilized. Will recheck lab tomorrow. Dialysis as needed. Will increase lisinopril to 10 mg twice a day. October 04: Lab reviewed. Blood pressure medication adjusted since the patient is hypotensive. Serum creatinine rising. Recheck labs tomorrow. Dialysis as needed. Discussed with RN. October 03: Lab reviewed. Zestril added to BP medication. 1 dose of Seroquel ordered for agitation. Continue to monitor renal parameters. Continue per consultants. October 02: Lab reviewed. Potassium supplement IV given. 3% saline 250 cc ordered. Responded well to Zaroxolyn yesterday. Will continue to monitor electrolytes and renal parameters. Will increase minoxidil to 2.5 mg every 6 hours. October 01: Labs reviewed. Potassium supplement given. Last dialysis September 29. Serum creatinine rising gradually. Urine output very low. Patient appears to continue to need dialysis at least twice a week. Blood pressure still running high I will switch the hydralazine to minoxidil. We will give 1 dose of Zaroxolyn 10 mg today. Will check renal parameters tomorrow. September 30: Patient dialyzed yesterday. 3 L removed. Labs reviewed. Potassium supplement given. Continue per consultants. It appears that the patient required dialysis 2-3 times a week. September 29: Lab reviewed. Chest x-ray result noted. Continues to have pulmonary congestion. Urine output low. Will attempt dialysis again today with ultrafiltration. September 28: Lab reviewed. ABG reviewed. Potassium supplement given. No dialysis at this point. Will eval patient status and renal parameters daily. September 27: Lab reviewed. Last dialysis September 25. Continue to monitor renal parameters. Hemodialysis as needed. September 26: Lab reviewed. Dialyzed yesterday. Potassium supplement given. Medication list reviewed. Will observe renal parameters and arrange for dialysis as needed. September 25: Lab reviewed. Currently on hemodialysis. Tolerating well. Stable from renal standpoint of view. Blood pressure medication adjusted by increasing hydralazine. September 24: Lab reviewed. ABG reviewed. Both lab and ABG much improved. Patient was dialyzed yesterday. We will attempt dialysis tomorrow again. Will adjust that blood pressure medication dosages. September 23: Lab reviewed. ABG reviewed. Patient acidotic. IV bicarb 1 dose is given. Patient has dialysis catheter. Will order dialysis for ultrafiltration and correction of acid-base. Discussed with ERASMO Mohr. September 22: Labs reviewed. Potassium high. Kayexalate and Reglan given. Will discuss with the consultants regarding initiation of dialysis. September 21: Patient is being sedated. Labs reviewed. Potassium supplement discontinued. GFR 20. Continue per current treatment plan. Dialysis and ultrafiltration is a consideration. September 20: Patient periodically agitated. Labs reviewed. Creatinine 2.4. Medication reviewed. Continue per consultants. Calculated creatinine clearance 21. May need isolated ultrafiltration on dialysis. Will discuss with PMD. Meanwhile hemoglobin is lower, defer transfusion to PMD. September 19: DC IV fluid. Zaroxolyn via GT tube. Potassium supplement. Attempt to diurese. Chest CT as bilateral pleural effusion. If diuresis unsuccessful, will consider dialysis and ultrafiltration. September 18: Potassium supplement IV given. Hemoglobin stable. Patient remains full code. Continue per consultants. Previously: Potassium supplement IV Slow IV hydration Epogen subcu Adjust blood pressure medication IV fluid, rate adjusted Norman catheter, intake and output Monitor renal parameters Avoid nephrotoxic's Antibiotics Per orders 2D echocardiogram Kidney ultrasound Subjective ROS Limited/Unobtainable: Yes Objective Objective Last 24 Hour Vital Signs Date Time Temp Pulse Resp B/P (MAP) Pulse Ox O2 Delivery O2 Flow Rate FiO2 10/07/19 12:42 20 142/64 Endotracheal Tube 60 10/07/19 12:41 20 142/54 Mechanical Ventilator 60 10/07/19 12:29 60 10/07/19 12:15 58 20 10/07/19 12:00 98.2 58 20 141/59 (86) 10/07/19 12:00 Mechanical Ventilator Mechanical Ventilator 10/07/19 12:00 80 10/07/19 12:00 20 142/76 Mechanical Ventilator 80 10/07/19 12:00 58 141/59 10/07/19 11:30 64 19 144/75 (98) 92 10/07/19 11:10 72 24 80 10/07/19 11:00 21 167/65 Mechanical Ventilator 80 10/07/19 11:00 65 21 174/70 (104) 98 10/07/19 10:30 60 20 149/56 (87) 94 10/07/19 10:00 20 157/62 Endotracheal Tube 80 10/07/19 10:00 62 20 157/62 (93) 95 10/07/19 09:50 80 10/07/19 09:30 62 20 158/62 (94) 98 10/07/19 09:21 143/55 10/07/19 09:10 58 20 100 10/07/19 09:00 58 20 143/55 (84) 96 10/07/19 09:00 20 143/55 Mechanical Ventilator 100 10/07/19 08:30 58 20 147/56 (86) 96 10/07/19 08:00 98.2 58 20 160/60 (93) 98 10/07/19 08:00 20 160/60 Mechanical Ventilator 100 10/07/19 08:00 100 10/07/19 08:00 Mechanical Ventilator Mechanical Ventilator 10/07/19 07:31 54 20 98 Mechanical Ventilator 100 54 20 100 10/07/19 07:30 54 19 156/61 (92) 98 10/07/19 07:00 20 150/58 Mechanical Ventilator 100 10/07/19 07:00 54 20 150/58 (88) 98 10/07/19 06:30 54 20 145/56 (85) 99 10/07/19 06:00 20 143/59 Mechanical Ventilator 100 10/07/19 06:00 55 20 143/59 (87) 99 10/07/19 05:43 55 143/55 10/07/19 05:30 56 20 143/55 (84) 99 10/07/19 05:00 20 147/54 Mechanical Ventilator 100 10/07/19 05:00 57 20 147/54 (85) 99 10/07/19 04:30 56 20 159/61 (93) 99 10/07/19 04:00 100 10/07/19 04:00 97.6 56 20 162/62 (95) 99 10/07/19 04:00 56 10/07/19 04:00 Mechanical Ventilator Mechanical Ventilator 8/24/20 04:00 20 162/62 Mechanical Ventilator 100 10/07/19 03:30 56 20 152/58 (89) 100 10/07/19 03:22 63 20 100 10/07/19 03:00 20 155/58 Mechanical Ventilator 100 10/07/19 03:00 56 20 155/58 (90) 100 10/07/19 02:30 60 20 148/58 (88) 99 10/07/19 02:00 55 20 157/62 (93) 99 10/07/19 02:00 20 157/62 Mechanical Ventilator 100 10/07/19 01:30 55 20 154/60 (91) 99 10/07/19 01:07 55 20 99 Mechanical Ventilator 100 55 20 100 10/07/19 01:00 56 20 142/58 (86) 98 10/07/19 01:00 20 142/58 Mechanical Ventilator 100 10/07/19 00:30 55 20 144/58 (86) 98 10/07/19 00:14 20 145/54 Mechanical Ventilator 100 10/07/19 00:00 55 10/07/19 00:00 100 10/07/19 00:00 20 145/54 Mechanical Ventilator 100 10/07/19 00:00 56 145/54 10/07/19 00:00 98.0 55 20 145/54 (84) 98 10/07/19 00:00 Mechanical Ventilator Mechanical Ventilator 10/06/19 23:30 56 20 142/55 (84) 99 10/06/19 23:03 56 20 100 10/06/19 23:00 58 20 132/60 (84) 98 10/06/19 23:00 20 132/60 Mechanical Ventilator 100 10/06/19 22:30 58 20 134/52 (79) 98 10/06/19 22:00 57 20 132/54 (80) 98 10/06/19 22:00 20 132/54 Mechanical Ventilator 100 10/06/19 21:30 57 20 141/53 (82) 98 10/06/19 21:00 57 20 138/52 (80) 97 10/06/19 21:00 20 135/52 Mechanical Ventilator 100 10/06/19 21:00 56 138/52 10/06/19 20:30 57 20 138/54 (82) 97 10/06/19 20:00 Mechanical Ventilator Mechanical Ventilator 10/06/19 20:00 98.1 56 20 135/56 (82) 97 10/06/19 20:00 100 10/06/19 20:00 20 135/56 Mechanical Ventilator 100 10/06/19 20:00 59 10/06/19 19:30 57 20 140/54 (82) 95 10/06/19 19:23 57 20 97 Mechanical Ventilator 100 58 20 100 10/06/19 19:00 58 20 137/52 (80) 97 10/06/19 19:00 22 137/52 Mechanical Ventilator 100 10/06/19 18:30 57 20 144/57 (86) 96 10/06/19 18:18 143/57 10/06/19 18:18 62 143/57 10/06/19 18:00 58 20 143/57 (85) 96 10/06/19 18:00 20 143/57 Mechanical Ventilator 100 10/06/19 17:30 61 20 145/58 (87) 98 10/06/19 17:12 63 20 100 10/06/19 17:00 66 22 145/58 (87) 97 10/06/19 17:00 21 145/58 Mechanical Ventilator 100 10/06/19 16:30 61 20 138/55 (82) 99 10/06/19 16:00 98.2 65 26 150/62 (91) 100 10/06/19 16:00 22 140/60 Mechanical Ventilator 100 10/06/19 16:00 100 10/06/19 16:00 63 10/06/19 16:00 Mechanical Ventilator Mechanical Ventilator 10/06/19 15:45 22 150/62 Mechanical Ventilator 100 10/06/19 15:30 65 22 135/54 (81) 100 10/06/19 15:30 22 140/60 Mechanical Ventilator 100 10/06/19 15:15 21 135/54 Mechanical Ventilator 100 10/06/19 15:12 63 20 100 10/06/19 15:00 20 146/59 Mechanical Ventilator 100 10/06/19 15:00 63 19 146/59 (88) 98 10/06/19 14:30 58 20 127/50 (75) 97 10/06/19 14:00 20 132/50 Mechanical Ventilator 100 10/06/19 14:00 58 20 132/50 (77) 97 Intake and Output 10/06/19 10/07/19 19:00 07:00 Intake Total 810.85 ml 920 ml Output Total 75 ml 75 ml Balance 735.85 ml 845 ml Intake Free Water 100 ml 100 ml IV Total 230.85 ml 240 ml Tube Feeding 480 ml 480 ml Other 100 ml Output Urine Total 75 ml 75 ml # Bowel Movements 1 2 Current Medications Medications (Trade) Dose Ordered Sig/Penny Route PRN Reason Start Time Stop Time Status Last Admin Dose Admin Acetaminophen (Tylenol) 325 mg Q6H PRN GT Temp >100.5 09/23/19 10:45 10/23/19 10:44 09/23/19 18:55 Albuterol/ Ipratropium (Albuterol/ Ipratropium) 3 ml Q6HRT HHN 10/04/19 13:00 10/09/19 12:59 10/07/19 13:23 Ascorbic Acid (Vitamin C) 500 mg DAILY ORAL 10/06/19 09:00 11/05/19 08:59 10/07/19 09:20 Chlorhexidine Gluconate (Ling-Hex 2%) 1 applic DAILY@2000 TOPIC 09/23/19 20:00 12/22/19 19:59 10/06/19 19:33 Dextrose (Dextrose 50%) 25 ml Q30M PRN IV Hypoglycemia 10/05/19 18:30 01/03/20 18:29 Dextrose (Dextrose 50%) 50 ml Q30M PRN IV Hypoglycemia 10/05/19 18:30 01/03/20 18:29 Diltiazem HCl (Cardizem Tab) 60 mg Q6HR GT 10/04/19 18:00 11/03/19 17:59 10/06/19 18:18 Docusate Sodium (Colace) 100 mg Q8H GT 09/29/19 08:30 10/29/19 08:29 10/07/19 09:19 Epoetin Gelacio (Epoetin Gelacio(ESRD on dialysis)) 10,000 unit MON-MON-MON SUBQ 09/25/19 21:00 12/24/19 20:59 10/04/19 20:59 Fentanyl Citrate 250 ml @ 0 mls/hr Q24H IV 10/06/19 12:30 10/09/19 12:29 10/07/19 12:42 Heparin Sodium (Porcine) (Heparin 5000 units/ml) 5,000 units EVERY 12 HOURS SUBQ 09/17/19 21:00 10/30/19 08:59 10/07/19 09:22 Hydralazine HCl (Apresoline) 10 mg Q4H PRN IV BP over 160 systolic 09/17/19 11:15 12/14/19 11:14 10/04/19 09:04 Insulin Aspart (NovoLOG) Q6HR SUBQ 10/06/19 00:00 01/03/20 20:59 Lactulose (Cephulac) 10 gm THREE TIMES A DAY ORAL 10/03/19 13:00 11/02/19 12:59 10/07/19 09:19 Lansoprazole (Prevacid) 30 mg Q12HR GT 09/27/19 21:00 10/27/19 20:59 10/07/19 09:19 Lisinopril (ZestriL) 10 mg BID GT 10/06/19 18:00 11/03/19 13:29 10/07/19 09:21 Metoclopramide HCl (Reglan) 10 mg Q8H IVP 09/29/19 14:00 10/29/19 13:59 10/07/19 05:43 Metoprolol Tartrate (Lopressor) 50 mg EVERY 12 HOURS GT 10/04/19 21:00 12/14/19 20:59 10/06/19 08:29 Midazolam HCl (Versed 2mg/2ml vial) 1 mg Q4H PRN IVP For Anxiety 09/21/19 09:30 12/20/19 09:29 10/04/19 14:47 Minoxidil (Loniten) 2.5 mg Q6HR PRN GT BP OVER 170 SYST 10/05/19 08:30 12/31/19 13:59 Polyethylene Glycol (Miralax) 17 gm BEDTIME ORAL 10/01/19 21:00 10/31/19 20:59 10/06/19 21:07 Risperidone (RisperDAL) 2 mg BEDTIME ORAL 10/05/19 21:00 11/19/19 20:59 10/06/19 21:06 Sertraline HCl (Zoloft) 100 mg BEDTIME GT 09/17/19 21:00 10/15/19 20:59 10/06/19 21:06 Sorbitol (sorbitoL) 30 ml EVERY 6 HOURS PRN GT Constipation 09/29/19 18:00 10/29/19 17:59 10/01/19 00:44 Tramadol HCl (Ultram) 25 mg Q6H GT 10/07/19 11:00 10/14/19 10:59 10/07/19 11:06 Vitamin B Complex/ Vit C/Folic Acid (Nephrovite) 1 tab DAILY ORAL 10/06/19 09:00 11/05/19 08:59 10/07/19 09:20 Zinc Sulfate (Zinc Sulfate) 220 mg DAILY ORAL 10/06/19 09:00 10/16/19 08:59 10/07/19 09:20 Laboratory Tests 10/06/19 23:12: POC Whole Blood Glucose 100 10/07/19 05:10: White Blood Count 7.9, Red Blood Count 2.81L, Hemoglobin 8.6L, Hematocrit 27.3L , Mean Corpuscular Volume 97, Mean Corpuscular Hemoglobin 30.5, Mean Corpuscular Hemoglobin Concent 31.5L, Red Cell Distribution Width 15.1H, Platelet Count 412, Mean Platelet Volume 5.7L, Neutrophils (%) (Auto) 66.7, Lymphocytes (%) (Auto) 21.4, Monocytes (%) (Auto) 6.9, Eosinophils (%) (Auto) 3.9H, Basophils (%) (Auto) 1.1, Sodium Level 140, Potassium Level 4.0, Chloride Level 102, Carbon Dioxide Level 26, Anion Gap 12, Blood Urea Nitrogen 80H, Creatinine 3.3H, Estimat Glomerular Filtration Rate 15.0, Glucose Level 85, Calcium Level 9.6, Phosphorus Level 5.7H, Magnesium Level 3.5H, Total Bilirubin 0.3, Aspartate Amino Transf (AST/SGOT) 21, Alanine Aminotransferase (ALT/SGPT) 8L, Alkaline Phosphatase 157H, C-Reactive Protein, Quantitative 10.9H, Pro-B- Type Natriuretic Peptide > [id number], Total Protein 6.7, Albumin 1.6L, Globulin 5.1 , Albumin/Globulin Ratio 0.3L 10/07/19 05:11: POC Whole Blood Glucose 88 Height (Feet): 5 Height (Inches): 5.00 Weight (Pounds): 145 EENT: other - On mechanical ventilation Cardiovascular: normal rate Respiratory/Chest: decreased breath sounds Abdomen: soft Objective No change Johnny Houston MD Oct 07, 2019 13:38
[2019-10-07] MEDS: Midazolam 2mg/2ml Inj IVP PRN (17:47)
[2019-10-07] MEDS: Dyna-Hex 2% Top Sol 2oz TOPIC SCH (19:32)
[2019-10-07] MEDS: Epoetin Alfa-EPBX(ESRD on dialysis)10,000 unit/ml vial SUBQ SCH (20:57)
[2019-10-07] MEDS: Miralax 17gm pkt ORAL SCH (20:57)
[2019-10-07] MEDS: Sertraline 100mg tab GT SCH (20:58)
--- NOTE | 2019-10-07 22:56 | Psych Consult Progress Note ---
Psychiatry Progress Note Psychiatry Progress Note Subjective the pt was calm dec agitation managable off restraints Medications Current Medications Medications (Trade) Dose Ordered Sig/Penny Route PRN Reason Start Time Stop Time Status Last Admin Dose Admin Acetaminophen (Tylenol) 325 mg Q6H PRN GT Temp >100.5 09/23/19 10:45 10/23/19 10:44 09/23/19 18:55 Albuterol/ Ipratropium (Albuterol/ Ipratropium) 3 ml Q6HRT HHN 10/04/19 13:00 10/09/19 12:59 10/07/19 13:23 Ascorbic Acid (Vitamin C) 500 mg DAILY ORAL 10/06/19 09:00 11/05/19 08:59 10/07/19 09:20 Chlorhexidine Gluconate (Ling-Hex 2%) 1 applic DAILY@2000 TOPIC 09/23/19 20:00 12/22/19 19:59 10/07/19 19:32 Dextrose (Dextrose 50%) 25 ml Q30M PRN IV Hypoglycemia 10/05/19 18:30 01/03/20 18:29 Dextrose (Dextrose 50%) 50 ml Q30M PRN IV Hypoglycemia 10/05/19 18:30 01/03/20 18:29 Diltiazem HCl (Cardizem Tab) 60 mg Q6HR GT 10/04/19 18:00 11/03/19 17:59 10/06/19 18:18 Docusate Sodium (Colace) 100 mg Q8H GT 09/29/19 08:30 10/29/19 08:29 10/07/19 17:06 Epoetin Gelacio (Epoetin Gelacio(ESRD on dialysis)) 10,000 unit MON-MON-MON SUBQ 09/25/19 21:00 12/24/19 20:59 10/07/19 20:57 Fentanyl Citrate 250 ml @ 0 mls/hr Q24H IV 10/07/19 15:00 10/09/19 12:29 10/07/19 15:28 Heparin Sodium (Porcine) (Heparin 5000 units/ml) 5,000 units EVERY 12 HOURS SUBQ 09/17/19 21:00 10/30/19 08:59 10/07/19 20:58 Hydralazine HCl (Apresoline) 10 mg Q4H PRN IV BP over 160 systolic 09/17/19 11:15 12/14/19 11:14 10/04/19 09:04 Insulin Aspart (NovoLOG) Q6HR SUBQ 10/06/19 00:00 01/03/20 20:59 Lactulose (Cephulac) 10 gm THREE TIMES A DAY ORAL 10/03/19 13:00 11/02/19 12:59 10/07/19 17:06 Lansoprazole (Prevacid) 30 mg Q12HR GT 09/27/19 21:00 10/27/19 20:59 10/07/19 20:57 Lisinopril (ZestriL) 10 mg BID GT 10/06/19 18:00 11/03/19 13:29 10/07/19 09:21 Metoclopramide HCl (Reglan) 10 mg Q8H IVP 09/29/19 14:00 10/29/19 13:59 10/07/19 21:33 Metoprolol Tartrate (Lopressor) 50 mg EVERY 12 HOURS GT 10/04/19 21:00 12/14/19 20:59 10/07/19 20:57 Midazolam HCl (Versed 2mg/2ml vial) 1 mg Q4H PRN IVP For Anxiety 09/21/19 09:30 10/14/19 09:29 10/07/19 17:47 Minoxidil (Loniten) 2.5 mg Q6HR PRN GT BP OVER 170 SYST 10/05/19 08:30 12/31/19 13:59 Polyethylene Glycol (Miralax) 17 gm BEDTIME ORAL 10/01/19 21:00 10/31/19 20:59 10/07/19 20:57 Risperidone (RisperDAL) 2 mg BEDTIME ORAL 10/05/19 21:00 11/19/19 20:59 10/07/19 20:58 Sertraline HCl (Zoloft) 100 mg BEDTIME GT 09/17/19 21:00 10/15/19 20:59 10/07/19 20:58 Sorbitol (sorbitoL) 30 ml EVERY 6 HOURS PRN GT Constipation 09/29/19 18:00 10/29/19 17:59 10/01/19 00:44 Tramadol HCl (Ultram) 25 mg Q6H GT 10/07/19 11:00 10/14/19 10:59 10/07/19 22:35 Vitamin B Complex/ Vit C/Folic Acid (Nephrovite) 1 tab DAILY ORAL 10/06/19 09:00 11/05/19 08:59 10/07/19 09:20 Zinc Sulfate (Zinc Sulfate) 220 mg DAILY ORAL 10/06/19 09:00 10/16/19 08:59 10/07/19 09:20 Neurological/Psychiatric: Reports: anxiety, depressed; Denies: no symptoms, emotional problems, headache, numbness, paresthesia, pre-existing deficit, seizure, tingling, tremors, weakness, other Allergies: Coded Allergies: No Known Allergies (Unverified , 10/10/17) Objective Data Height (Feet): 5 Height (Inches): 5.00 Weight (Pounds): 145 General Appearance: confused Additional Comments: awake, disoriented. Mood is agitated. Affect is flat. Thought process is concrete. Thought content, no suicidal or homicidal ideation. Cognition is impaired. Insight and judgment are impaired. Assessment/Plan Assessment/Plan: ASSESSMENT: AXIS I: Acute encephalopathy. Schizophrenia. AXIS II: Deferred. AXIS III: As above. AXIS IV: Low. AXIS V: 20. PLAN: 1. We will start the patient on risperidone 2 mg at bedtime. 2. Haldol IM. The patient improved after 1 dose and restraints was stopped at nighttime. 3. Continue to follow and readjust the medications. Shanda Linares MD Oct 07, 2019 22:56
[2019-10-08] VITALS (56 sets, daily range): BP systolic 114–197; BP diastolic 47–101
[2019-10-08] MEDS: Docusate 100mg/10ml Liq GT SCH ×4 (00:30→23:48)
[2019-10-08] MEDS: Albuterol/Ipratropium 3ml neb HHN SCH ×4 (00:52→19:49)
[2019-10-08] MEDS: fentaNYL 2500mcg/NS 250ml 250 ML IV SCH ×2 (01:00→12:34)
[2019-10-08 04:25] LABS: BASOPHILS % (AUTO) 0.8 % (0.0-2.0); EOSINOPHILS % (AUTO) 0.4 % (0.0-3.0); HEMATOCRIT 28.8 % (37.0-47.0); HEMOGLOBIN 9.3 G/DL (12.0-16.0); LYMPHOCYTES % (AUTO) 11.4 % (20.0-45.0); MEAN CORPUSCULAR VOLUME 97 FL (80-99); MONOCYTES % (AUTO) 4.3 % (1.0-10.0); NEUTROPHILS % (AUTO) 83.2 % (45.0-75.0); PLATELET COUNT 419 K/UL (150-450); RED BLOOD COUNT 2.98 M/UL (4.20-5.40); RED CELL DISTRIBUTION WIDTH 14.9 % (11.6-14.8); WHITE BLOOD COUNT 12.1 K/UL (4.8-10.8)
[2019-10-08] MEDS: traMADol 50mg tab GT SCH ×4 (04:34→22:56)
[2019-10-08 04:38] LABS: ANION GAP 9 mmol/L (5-15); BLOOD UREA NITROGEN 54 mg/dL (7-18); CALCIUM 8.8 MG/DL (8.5-10.1); CARBON DIOXIDE 24 MMOL/L (21-32); CHLORIDE 101 MMOL/L (98-107); CREATININE 2.5 MG/DL (0.55-1.30); SODIUM 134 MMOL/L (136-145)
[2019-10-08] MEDS: NovoLOG Insulin Flexpen SUBQ SCH ×4 (05:32→23:48)
[2019-10-08] MEDS: Metoclopramide 10mg/2ml Inj IVP SCH ×3 (05:34→21:11)
[2019-10-08] MEDS: dilTIAZem HCl 60mg tab GT SCH ×5 (05:56→23:47)
--- NOTE | 2019-10-08 07:27 | Hematology/Onc Progress Note ---
Assessment/Plan Assessment/Plan Assessment and Recs # Leukocytosis, now with gram positive bacteremias well as pna noted --> historically --> PPM site (pocket) infection (redness and pain, bacteremia) and likely pocket abscess - no vegetation seen on ABBIE --> is s'p pm removal and also pocket infection is better --> per cards recs in re to tach/davis --> wbc 15-->19-->17-->15-->13->12-->13-->12>13-->18-->9-->7 --> ABX cefepime/levaquin--> vanc/angelo --> ID recs are noted # Anemia of chronic disease due to underlying chronic medical issues, multifactorial --> Anemia workup has been reviewed, cw acd --> No evidence of hemolysis is noted, peripheral smear has been reviewed. --> Hgb goal >7. Transfuse prn. --> Epogen started --> Medications have been reviewed --> low threshold for gi evaluation in case has occult + --> hgb 7.1-->7.8-->8.9->9.2-->8.5-->9.7-->10-->8.8-->9.6-->8.7->8.6-->7.2->8.7- >9.1-->9.2-->9-->8.7-->9.3 --> 1 unit prbc 09/27 # Thrombocytois is likely reactive process, is s/p infection --> plt trend 610k-->706k-->354 --> p smear reviewed # Acute hypoxic respiratory failure s/p intubation 11/23- ?ARDS --> on vent/trach # Gram positive bacteremia- real bacteremia- 2ry to above and probable PNA --> per id care # JAVIER initially >2 --> now improved with D5w # Dysphagia s/p peg # Thoracic aortic dissection s/p repair early 2017 # Psychiatric history on ativan/haldol # [place] resident # Dvt ppx heparin sq The timing of this note does not necessarily reflect the time of the patient was seen. Greatly appreciate consultation. Subjective Constitutional: Denies: no symptoms, chills, fever, malaise, weakness, other HEENT: Denies: no symptoms, eye pain, blurred vision, tearing, double vision, ear pain, ear discharge, nose pain, nose congestion, throat pain, throat swelling, mouth pain, mouth swelling, other Cardiovascular: Denies: no symptoms, chest pain, edema, irregular heart rate, lightheadedness, palpitations, syncope, other Respiratory: Denies: no symptoms, cough, shortness of breath, SOB with excertion, SOB at rest, sputum, wheezing, other Gastrointestinal/Abdominal: Denies: no symptoms, abdomen distended, abdominal pain, black stools, tarry stools, blood in stool, constipated, diarrhea, difficulty swallowing, nausea, poor appetite, poor fluid intake, rectal bleeding , vomiting, other Neurologic/Psychiatric: Denies: no symptoms, anxiety, depressed, emotional problems, headache, numbness, paresthesia, pre-existing deficit, seizure, tingling, tremors, weakness, other Hematologic/Lymphatic: Denies: no symptoms, anemia, easy bleeding, easy bruising, adenopathy, other Allergies: Coded Allergies: No Known Allergies (Unverified , 10/10/17) Subjective 09/16 on vent now, consulted in am pulm, on vent setting, labs noted, hep sq 09/17 meds noted, cbc noted, labs noted, no bleeding 09/18 is to undergo potential v/q scan given abg, labs noted, resless, on ativan, to get haldol today, roman ramesh 09/19 remains agitated, covering, with sacral wound seeping, likely cause of anemia, roman ramesh 09/26 restless, remains agitated, gtube ripped, eval with rn, and vosoghi consulted 09/27 remains on vent, agitated, seen by gi, hgb low, roman George to transfuse 1 unit prbc 09/28 meds noted, no bleeding, on vent, s/p blood tranfusion, cbc pending, roman ramesh 09/29 remains in the icu, roman rn in the am, agitated, on versed, fentanyl, restraints 09/30 in icu, trach to vent, on gtube feeds, fentanyl, agitated 10/01 in icu, roman Ayoub rn, no bleeding, sleeping, labs noted, hgb >9 10/02 sedated in icu, is on vent, dw rn, more alert and more conversive with face grimaces 10/03 labs have been reviewed, no bleeding, icu, meds reviewed, on fentanyl and versed, to consult psych 10/05 remains on fentanyl, also with restraints, no bleeding, cbc ordered 10/06 remains obtunded, though reactive when proded, labs pending from am 10/07 hypertensive, asleep, no bleeding, roman rn, no major night sweats Objective Objective Current Medications Medications (Trade) Dose Ordered Sig/Penny Route PRN Reason Start Time Stop Time Status Last Admin Dose Admin Acetaminophen (Tylenol) 325 mg Q6H PRN GT Temp >100.5 09/23/19 10:45 10/23/19 10:44 09/23/19 18:55 Albuterol/ Ipratropium (Albuterol/ Ipratropium) 3 ml Q6HRT HHN 10/04/19 13:00 10/09/19 12:59 10/08/19 07:15 Ascorbic Acid (Vitamin C) 500 mg DAILY ORAL 10/06/19 09:00 11/05/19 08:59 10/07/19 09:20 Chlorhexidine Gluconate (Ling-Hex 2%) 1 applic DAILY@2000 TOPIC 09/23/19 20:00 12/22/19 19:59 10/07/19 19:32 Dextrose (Dextrose 50%) 25 ml Q30M PRN IV Hypoglycemia 10/05/19 18:30 01/03/20 18:29 Dextrose (Dextrose 50%) 50 ml Q30M PRN IV Hypoglycemia 10/05/19 18:30 01/03/20 18:29 Diltiazem HCl (Cardizem Tab) 60 mg Q6HR GT 10/04/19 18:00 11/03/19 17:59 10/06/19 18:18 Docusate Sodium (Colace) 100 mg Q8H GT 09/29/19 08:30 10/29/19 08:29 10/07/19 17:06 Epoetin Gelacio (Epoetin Gelacio(ESRD on dialysis)) 10,000 unit MON-MON-MON SUBQ 09/25/19 21:00 12/24/19 20:59 10/07/19 20:57 Fentanyl Citrate 250 ml @ 0 mls/hr Q24H IV 10/07/19 15:00 10/09/19 12:29 10/08/19 01:00 Heparin Sodium (Porcine) (Heparin 5000 units/ml) 5,000 units EVERY 12 HOURS SUBQ 09/17/19 21:00 10/30/19 08:59 10/07/19 20:58 Hydralazine HCl (Apresoline) 10 mg Q4H PRN IV BP over 160 systolic 09/17/19 11:15 12/14/19 11:14 10/04/19 09:04 Insulin Aspart (NovoLOG) Q6HR SUBQ 10/06/19 00:00 01/03/20 20:59 Lactulose (Cephulac) 10 gm THREE TIMES A DAY ORAL 10/03/19 13:00 11/02/19 12:59 10/07/19 17:06 Lansoprazole (Prevacid) 30 mg Q12HR GT 09/27/19 21:00 10/27/19 20:59 10/07/19 20:57 Lisinopril (ZestriL) 10 mg BID GT 10/06/19 18:00 11/03/19 13:29 10/07/19 09:21 Metoclopramide HCl (Reglan) 10 mg Q8H IVP 09/29/19 14:00 10/29/19 13:59 10/08/19 05:34 Metoprolol Tartrate (Lopressor) 50 mg EVERY 12 HOURS GT 10/04/19 21:00 12/14/19 20:59 10/07/19 20:57 Midazolam HCl (Versed 2mg/2ml vial) 1 mg Q4H PRN IVP For Anxiety 09/21/19 09:30 10/14/19 09:29 10/07/19 17:47 Minoxidil (Loniten) 2.5 mg Q6HR PRN GT BP OVER 170 SYST 10/05/19 08:30 12/31/19 13:59 Polyethylene Glycol (Miralax) 17 gm BEDTIME ORAL 10/01/19 21:00 10/31/19 20:59 10/07/19 20:57 Risperidone (RisperDAL) 2 mg BEDTIME ORAL 10/05/19 21:00 11/19/19 20:59 10/07/19 20:58 Sertraline HCl (Zoloft) 100 mg BEDTIME GT 09/17/19 21:00 10/15/19 20:59 10/07/19 20:58 Sorbitol (sorbitoL) 30 ml EVERY 6 HOURS PRN GT Constipation 09/29/19 18:00 10/29/19 17:59 10/01/19 00:44 Tramadol HCl (Ultram) 25 mg Q6H GT 10/07/19 11:00 10/14/19 10:59 10/08/19 04:34 Vitamin B Complex/ Vit C/Folic Acid (Nephrovite) 1 tab DAILY ORAL 10/06/19 09:00 11/05/19 08:59 10/07/19 09:20 Zinc Sulfate (Zinc Sulfate) 220 mg DAILY ORAL 10/06/19 09:00 10/16/19 08:59 10/07/19 09:20 Last 24 Hour Vital Signs Date Time Temp Pulse Resp B/P (MAP) Pulse Ox O2 Delivery O2 Flow Rate FiO2 10/08/19 07:16 57 21 100 Mechanical Ventilator 60 58 20 60 10/08/19 07:00 18 165/69 Mechanical Ventilator 60 10/08/19 07:00 62 18 165/69 (101) 99 10/08/19 06:30 56 20 162/63 (96) 98 10/08/19 06:00 20 153/63 Mechanical Ventilator 60 10/08/19 06:00 54 20 153/63 (93) 98 10/08/19 05:56 54 143/58 10/08/19 05:30 54 20 150/58 (88) 99 10/08/19 05:17 54 20 60 10/08/19 05:00 20 143/58 Mechanical Ventilator 60 10/08/19 05:00 56 20 143/58 (86) 99 10/08/19 04:30 56 20 155/60 (91) 98 10/08/19 04:00 Mechanical Ventilator Mechanical Ventilator 10/08/19 04:00 98.1 55 20 161/64 (96) 98 10/08/19 04:00 20 161/64 Mechanical Ventilator 60 10/08/19 04:00 60 10/08/19 03:30 54 20 152/60 (90) 98 10/08/19 03:28 54 10/08/19 03:20 57 21 60 10/08/19 03:00 22 152/58 Mechanical Ventilator 60 10/08/19 03:00 56 22 152/58 (89) 98 10/08/19 02:30 58 20 139/53 (81) 97 10/08/19 02:00 20 142/94 Mechanical Ventilator 60 10/08/19 02:00 55 20 142/94 (110) 97 10/08/19 01:30 56 21 146/52 (83) 98 10/08/19 01:00 55 20 139/51 (80) 98 10/08/19 01:00 20 132/47 Mechanical Ventilator 60 10/08/19 00:52 58 20 60 10/08/19 00:30 56 22 128/51 (76) 95 10/08/19 00:00 Mechanical Ventilator Mechanical Ventilator 10/08/19 00:00 57 10/08/19 00:00 21 118/48 Mechanical Ventilator 60 10/08/19 00:00 56 126/53 10/08/19 00:00 98.7 57 21 118/48 (71) 95 10/08/19 00:00 60 10/07/19 23:30 58 20 130/51 (77) 95 10/07/19 23:18 57 20 60 10/07/19 23:00 57 23 119/49 (72) 94 10/07/19 23:00 23 119/49 Mechanical Ventilator 60 10/07/19 22:30 60 25 115/53 (73) 97 10/07/19 22:00 59 22 138/52 (80) 97 10/07/19 22:00 22 138/52 Mechanical Ventilator 60 10/07/19 21:30 65 26 147/52 (83) 98 10/07/19 21:00 64 21 138/56 (83) 96 10/07/19 21:00 21 138/56 Mechanical Ventilator 60 10/07/19 20:58 63 20 60 10/07/19 20:57 62 125/51 10/07/19 20:30 73 22 140/51 (80) 97 10/07/19 20:00 69 10/07/19 20:00 25 123/51 Mechanical Ventilator 60 10/07/19 20:00 98.6 69 25 123/51 (75) 99 10/07/19 20:00 60 10/07/19 20:00 Mechanical Ventilator Mechanical Ventilator 10/07/19 19:30 75 24 129/48 (75) 100 10/07/19 19:25 80 28 60 10/07/19 19:00 24 140/61 Mechanical Ventilator 60 10/07/19 19:00 99.0 82 25 140/61 (87) 98 10/07/19 18:45 28 122/57 Mechanical Ventilator 60 10/07/19 18:45 83 28 122/57 (78) 92 10/07/19 18:30 84 29 154/61 (92) 99 10/07/19 18:30 26 168/65 Mechanical Ventilator 60 10/07/19 18:00 84 33 186/75 (112) 100 10/07/19 18:00 29 186/75 Mechanical Ventilator 60 10/07/19 17:30 76 18 196/81 (119) 92 10/07/19 17:05 98 35 60 10/07/19 17:00 71 24 146/56 (86) 10/07/19 17:00 25 146/56 Mechanical Ventilator 60 10/07/19 16:30 67 23 142/56 (84) 97 10/07/19 16:00 62 10/07/19 16:00 98.1 62 20 151/59 (89) 10/07/19 16:00 21 144/53 Mechanical Ventilator 60 10/07/19 16:00 Mechanical Ventilator Mechanical Ventilator 10/07/19 16:00 60 10/07/19 15:30 61 20 145/55 (85) 10/07/19 15:28 20 145/55 Mechanical Ventilator 60 10/07/19 15:28 20 145/55 Mechanical Ventilator 60 10/07/19 15:00 20 145/55 Mechanical Ventilator 60 10/07/19 15:00 61 20 60 10/07/19 15:00 63 20 145/55 (85) 10/07/19 14:30 63 20 135/53 (80) 10/07/19 14:00 59 20 148/57 (87) 10/07/19 14:00 20 148/57 Mechanical Ventilator 60 10/07/19 13:30 58 20 157/58 (91) 10/07/19 13:05 58 20 60 10/07/19 13:00 59 20 141/54 (83) 10/07/19 13:00 20 157/58 Mechanical Ventilator 60 10/07/19 12:42 20 142/64 Endotracheal Tube 60 10/07/19 12:41 20 142/54 Mechanical Ventilator 60 10/07/19 12:35 60 10/07/19 12:30 58 20 142/54 (83) 98 10/07/19 12:29 60 10/07/19 12:15 58 20 10/07/19 12:00 98.2 58 20 141/59 (86) 10/07/19 12:00 Mechanical Ventilator Mechanical Ventilator 10/07/19 12:00 80 10/07/19 12:00 20 142/76 Mechanical Ventilator 80 10/07/19 12:00 58 141/59 10/07/19 12:00 58 10/07/19 11:30 64 19 144/75 (98) 92 10/07/19 11:10 72 24 80 10/07/19 11:00 21 167/65 Mechanical Ventilator 80 10/07/19 11:00 65 21 174/70 (104) 98 10/07/19 10:30 60 20 149/56 (87) 94 10/07/19 10:00 20 157/62 Endotracheal Tube 80 10/07/19 10:00 62 20 157/62 (93) 95 10/07/19 09:50 80 10/07/19 09:30 62 20 158/62 (94) 98 10/07/19 09:21 143/55 10/07/19 09:10 58 20 100 10/07/19 09:00 58 20 143/55 (84) 96 10/07/19 09:00 20 143/55 Mechanical Ventilator 100 10/07/19 08:30 58 20 147/56 (86) 96 10/07/19 08:00 98.2 58 20 160/60 (93) 98 10/07/19 08:00 54 10/07/19 08:00 20 160/60 Mechanical Ventilator 100 10/07/19 08:00 100 10/07/19 08:00 Mechanical Ventilator Mechanical Ventilator 10/07/19 07:31 54 20 98 Mechanical Ventilator 100 54 20 100 10/07/19 07:30 54 19 156/61 (92) 98 10/07/19 07:00 20 150/58 Mechanical Ventilator 100 10/07/19 07:00 54 20 150/58 (88) 98 10/07/19 06:30 54 20 145/56 (85) 99 10/07/19 06:00 20 143/59 Mechanical Ventilator 100 8/24/20 06:00 55 20 143/59 (87) 99 10/07/19 05:43 55 143/55 10/07/19 05:30 56 20 143/55 (84) 99 10/07/19 05:00 20 147/54 Mechanical Ventilator 100 10/07/19 05:00 57 20 147/54 (85) 99 10/07/19 04:30 56 20 159/61 (93) 99 10/07/19 04:00 100 10/07/19 04:00 97.6 56 20 162/62 (95) 99 10/07/19 04:00 56 10/07/19 04:00 Mechanical Ventilator Mechanical Ventilator 10/07/19 04:00 20 162/62 Mechanical Ventilator 100 10/07/19 03:30 56 20 152/58 (89) 100 10/07/19 03:22 63 20 100 10/07/19 03:00 20 155/58 Mechanical Ventilator 100 10/07/19 03:00 56 20 155/58 (90) 100 10/07/19 02:30 60 20 148/58 (88) 99 10/07/19 02:00 55 20 157/62 (93) 99 10/07/19 02:00 20 157/62 Mechanical Ventilator 100 10/07/19 01:30 55 20 154/60 (91) 99 10/07/19 01:07 55 20 99 Mechanical Ventilator 100 55 20 100 10/07/19 01:00 56 20 142/58 (86) 98 10/07/19 01:00 20 142/58 Mechanical Ventilator 100 10/07/19 00:30 55 20 144/58 (86) 98 10/07/19 00:14 20 145/54 Mechanical Ventilator 100 10/07/19 00:00 55 10/07/19 00:00 100 10/07/19 00:00 20 145/54 Mechanical Ventilator 100 10/07/19 00:00 56 145/54 10/07/19 00:00 98.0 55 20 145/54 (84) 98 10/07/19 00:00 Mechanical Ventilator Mechanical Ventilator 10/06/19 23:30 56 20 142/55 (84) 99 10/06/19 23:03 56 20 100 10/06/19 23:00 58 20 132/60 (84) 98 10/06/19 23:00 20 132/60 Mechanical Ventilator 100 10/06/19 22:30 58 20 134/52 (79) 98 10/06/19 22:00 57 20 132/54 (80) 98 10/06/19 22:00 20 132/54 Mechanical Ventilator 100 10/06/19 21:30 57 20 141/53 (82) 98 10/06/19 21:00 57 20 138/52 (80) 97 10/06/19 21:00 20 135/52 Mechanical Ventilator 100 10/06/19 21:00 56 138/52 10/06/19 20:30 57 20 138/54 (82) 97 10/06/19 20:00 Mechanical Ventilator Mechanical Ventilator 10/06/19 20:00 98.1 56 20 135/56 (82) 97 10/06/19 20:00 100 10/06/19 20:00 20 135/56 Mechanical Ventilator 100 10/06/19 20:00 59 10/06/19 19:30 57 20 140/54 (82) 95 10/06/19 19:23 57 20 97 Mechanical Ventilator 100 58 20 100 10/06/19 19:00 58 20 137/52 (80) 97 10/06/19 19:00 22 137/52 Mechanical Ventilator 100 10/06/19 18:30 57 20 144/57 (86) 96 10/06/19 18:18 143/57 10/06/19 18:18 62 143/57 10/06/19 18:00 58 20 143/57 (85) 96 10/06/19 18:00 20 143/57 Mechanical Ventilator 100 10/06/19 17:30 61 20 145/58 (87) 98 10/06/19 17:12 63 20 100 10/06/19 17:00 66 22 145/58 (87) 97 10/06/19 17:00 21 145/58 Mechanical Ventilator 100 10/06/19 16:30 61 20 138/55 (82) 99 10/06/19 16:00 98.2 65 26 150/62 (91) 100 10/06/19 16:00 22 140/60 Mechanical Ventilator 100 10/06/19 16:00 100 10/06/19 16:00 63 10/06/19 16:00 Mechanical Ventilator Mechanical Ventilator 10/06/19 15:45 22 150/62 Mechanical Ventilator 100 10/06/19 15:30 65 22 135/54 (81) 100 10/06/19 15:30 22 140/60 Mechanical Ventilator 100 10/06/19 15:15 21 135/54 Mechanical Ventilator 100 10/06/19 15:12 63 20 100 10/06/19 15:00 20 146/59 Mechanical Ventilator 100 10/06/19 15:00 63 19 146/59 (88) 98 10/06/19 14:30 58 20 127/50 (75) 97 10/06/19 14:00 20 132/50 Mechanical Ventilator 100 10/06/19 14:00 58 20 132/50 (77) 97 10/06/19 13:32 56 20 97 Mechanical Ventilator 100 59 20 100 10/06/19 13:30 58 20 140/55 (83) 97 10/06/19 13:00 57 20 123/48 (73) 97 10/06/19 13:00 20 132/50 Mechanical Ventilator 100 10/06/19 12:30 58 20 122/51 (74) 97 10/06/19 12:25 20 120/48 Mechanical Ventilator 100 10/06/19 12:00 59 10/06/19 12:00 98.1 58 20 120/48 (72) 97 10/06/19 12:00 20 120/48 Mechanical Ventilator 100 10/06/19 12:00 100 10/06/19 12:00 Mechanical Ventilator Mechanical Ventilator 10/06/19 11:34 56 117/46 10/06/19 11:30 58 20 117/46 (69) 98 10/06/19 11:00 20 127/68 Mechanical Ventilator 100 10/06/19 11:00 63 20 127/68 (87) 94 10/06/19 10:47 60 20 100 10/06/19 10:30 65 20 127/54 (78) 95 10/06/19 10:03 20 155/101 Mechanical Ventilator 100 10/06/19 10:00 61 20 140/56 (84) 99 10/06/19 10:00 20 140/56 Mechanical Ventilator 100 10/06/19 09:30 60 17 155/101 (119) 98 10/06/19 09:11 62 20 100 10/06/19 09:00 20 118/52 Mechanical Ventilator 100 10/06/19 09:00 60 20 118/52 (74) 97 10/06/19 08:30 60 20 131/52 (78) 96 10/06/19 08:29 60 115/50 10/06/19 08:27 115/50 10/06/19 08:00 100 10/06/19 08:00 20 115/50 Mechanical Ventilator 100 10/06/19 08:00 Mechanical Ventilator Mechanical Ventilator 10/06/19 08:00 59 10/06/19 08:00 98.2 60 20 115/50 (71) 96 10/06/19 07:30 60 20 131/53 (79) 96 Intake and Output 10/07/19 10/08/19 19:00 07:00 Intake Total 676.750 ml 1006 ml Output Total 105 ml 3080 ml Balance 571.750 ml -2074 ml IV Total 236.750 ml 276 ml Tube Feeding 440 ml 480 ml Other 250 ml Output Urine Total 105 ml 80 ml Hemodialysis UF 3000 ml # Bowel Movements 2 2 Labs Test 10/05/19 08:20 10/06/19 04:20 10/06/19 05:30 10/06/19 23:12 Arterial Blood pH 7.419 (7.350-7.450) Arterial Blood Partial Pressure CO2 39.6 mmHg (35.0-45.0) Arterial Blood Partial Pressure O2 69.8 mmHg (75.0-100.0) Arterial Blood HCO3 25.1 mmol/L (22.0-26.0) Arterial Blood Oxygen Saturation 92.4 % (95-100) Arterial Blood Base Excess 0.6 (-2-2) Rojas Test Positive White Blood Count 7.1 K/UL (4.8-10.8) Red Blood Count 2.80 M/UL (4.20-5.40) Hemoglobin 8.5 G/DL (12.0-16.0) Hematocrit 27.2 % (37.0-47.0) Mean Corpuscular Volume 97 FL (80-99) Mean Corpuscular Hemoglobin 30.4 PG (27.0-31.0) Mean Corpuscular Hemoglobin Concent 31.3 G/DL (32.0-36.0) Red Cell Distribution Width 14.5 % (11.6-14.8) Platelet Count 402 K/UL (150-450) Mean Platelet Volume 5.6 FL (6.5-10.1) Neutrophils (%) (Auto) 62.8 % (45.0-75.0) Lymphocytes (%) (Auto) 23.7 % (20.0-45.0) Monocytes (%) (Auto) 7.5 % (1.0-10.0) Eosinophils (%) (Auto) 4.4 % (0.0-3.0) Basophils (%) (Auto) 1.6 % (0.0-2.0) Sodium Level 140 MMOL/L (136-145) Potassium Level 4.0 MMOL/L (3.5-5.1) Chloride Level 102 MMOL/L (98-107) Carbon Dioxide Level 27 MMOL/L (21-32) Anion Gap 11 mmol/L (5-15) Blood Urea Nitrogen 74 mg/dL (7-18) Creatinine 3.1 MG/DL (0.55-1.30) Estimat Glomerular Filtration Rate 16.1 mL/min (>60) Glucose Level 76 MG/DL (74-106) Calcium Level 8.5 MG/DL (8.5-10.1) Phosphorus Level 5.2 MG/DL (2.5-4.9) Magnesium Level 2.8 MG/DL (1.8-2.4) Total Bilirubin 0.2 MG/DL (0.2-1.0) Aspartate Amino Transf (AST/SGOT) 19 U/L (15-37) Alanine Aminotransferase (ALT/SGPT) < 6 U/L (12-78) Alkaline Phosphatase 142 U/L (46-116) Total Protein 6.1 G/DL (6.4-8.2) Albumin 1.6 G/DL (3.4-5.0) Globulin 4.5 g/dL Albumin/Globulin Ratio 0.4 (1.0-2.7) POC Whole Blood Glucose 100 MG/DL (74-106) Test 10/07/19 05:10 10/07/19 05:11 10/08/19 03:15 White Blood Count 7.9 K/UL (4.8-10.8) 12.1 K/UL (4.8-10.8) Red Blood Count 2.81 M/UL (4.20-5.40) 2.98 M/UL (4.20-5.40) Hemoglobin 8.6 G/DL (12.0-16.0) 9.3 G/DL (12.0-16.0) Hematocrit 27.3 % (37.0-47.0) 28.8 % (37.0-47.0) Mean Corpuscular Volume 97 FL (80-99) 97 FL (80-99) Mean Corpuscular Hemoglobin 30.5 PG (27.0-31.0) 31.1 PG (27.0-31.0) Mean Corpuscular Hemoglobin Concent 31.5 G/DL (32.0-36.0) 32.2 G/DL (32.0-36.0) Red Cell Distribution Width 15.1 % (11.6-14.8) 14.9 % (11.6-14.8) Platelet Count 412 K/UL (150-450) 419 K/UL (150-450) Mean Platelet Volume 5.7 FL (6.5-10.1) 5.9 FL (6.5-10.1) Neutrophils (%) (Auto) 66.7 % (45.0-75.0) 83.2 % (45.0-75.0) Lymphocytes (%) (Auto) 21.4 % (20.0-45.0) 11.4 % (20.0-45.0) Monocytes (%) (Auto) 6.9 % (1.0-10.0) 4.3 % (1.0-10.0) Eosinophils (%) (Auto) 3.9 % (0.0-3.0) 0.4 % (0.0-3.0) Basophils (%) (Auto) 1.1 % (0.0-2.0) 0.8 % (0.0-2.0) Sodium Level 140 MMOL/L (136-145) 134 MMOL/L (136-145) Potassium Level 4.0 MMOL/L (3.5-5.1) 4.0 MMOL/L (3.5-5.1) Chloride Level 102 MMOL/L (98-107) 101 MMOL/L (98-107) Carbon Dioxide Level 26 MMOL/L (21-32) 24 MMOL/L (21-32) Anion Gap 12 mmol/L (5-15) 9 mmol/L (5-15) Blood Urea Nitrogen 80 mg/dL (7-18) 54 mg/dL (7-18) Creatinine 3.3 MG/DL (0.55-1.30) 2.5 MG/DL (0.55-1.30) Estimat Glomerular Filtration Rate 15.0 mL/min (>60) 20.6 mL/min (>60) Glucose Level 85 MG/DL (74-106) 106 MG/DL (74-106) Calcium Level 9.6 MG/DL (8.5-10.1) 8.8 MG/DL (8.5-10.1) Phosphorus Level 5.7 MG/DL (2.5-4.9) Magnesium Level 3.5 MG/DL (1.8-2.4) Total Bilirubin 0.3 MG/DL (0.2-1.0) Aspartate Amino Transf (AST/SGOT) 21 U/L (15-37) Alanine Aminotransferase (ALT/SGPT) 8 U/L (12-78) Alkaline Phosphatase 157 U/L (46-116) C-Reactive Protein, Quantitative 10.9 mg/dL (0.00-0.90) Pro-B-Type Natriuretic Peptide > 87196 pg/mL (0-125) Total Protein 6.7 G/DL (6.4-8.2) Albumin 1.6 G/DL (3.4-5.0) Globulin 5.1 g/dL Albumin/Globulin Ratio 0.3 (1.0-2.7) POC Whole Blood Glucose 88 MG/DL (74-106) Height (Feet): 5 Height (Inches): 5.00 Weight (Pounds): 140 Objective Physical Exam: Vitals: reviewed General: NAD HEENT: nc, at Neck: supple ++tracn/vent Chest: clear breath sounds bilaterally Cardiovascular: RRR, no s3, s4 Abdomen: soft, nontender, nd +gtube Extremities: no cce, normal range of motion Neuro: alert Evan Muhammad MD Oct 08, 2019 07:27
[2019-10-08] MEDS: Lactulose 10gm/15ml UDC ORAL SCH ×3 (09:00→18:00)
[2019-10-08] MEDS: Metoprolol Tartrate 50mg tab GT SCH ×2 (09:00→21:00)
[2019-10-08] MEDS ORDERED: NS 275ml ONE (09:04)
[2019-10-08] MEDS: Nephrovite tab (Rena-Vite) ORAL SCH (10:05)
[2019-10-08] MEDS: Lisinopril 10mg tab GT SCH ×2 (10:05→18:47)
[2019-10-08] MEDS: Zinc Sulfate 220mg ORAL SCH (10:05)
[2019-10-08] MEDS: Midazolam 2mg/2ml Inj IVP PRN (10:05)
[2019-10-08] MEDS: Ascorbic Acid 500mg tab ORAL SCH (10:05)
[2019-10-08] MEDS: Heparin 5000 units/ml inj SUBQ SCH ×2 (10:06→21:12)
--- NOTE | 2019-10-08 10:28 | Pulmonolgy Critical Care Note ---
Yara Castro UTILITIES ESTIMATOR AND DRAFTER 10/08/19 1028: Critical Care - Asmt/Plan Assessment/Plan: ASSESSMENT Acute on chronic hypoxemic respiratory failure ( trach dependent), now on vent Tracheostomy status, s/p change to cuffed trach Sepsis Pulmonary edema Pleural effusion -worsening left pl effusion s/p thoracentesis L pleural effusion 09/26 -900 ml Pneumonia with MDR Pseudomonas UTI CHF ? cardiorenal COPD Acute kidney injury and chronic kidney disease-requiring start of HD Hypertension Atrial fibrillation Moderate pulm HTN Moderate AR Dysphagia , feeding by G-tube Electrolyte abnormalities Anemia Toxic metabolic encephalopathy likely due to sepsis and ARF HTN PAF PLAN OF CARE ICU on vent AC trach changed 8/4 pm from uncuffed to cuffed Shiley#[address] chest w/out contrast: - Bilateral pleural effusions, right greater than left, with bilateral lower lobe consolidation or volume loss. -Ground-glass densities in the upper lobes bilaterally. This is not specific. -Tracheostomy. -Increased superior mediastinal density. Stability of adenopathy cannot be excluded. -Atherosclerotic change. -Gastrostomy. -Ascites. -Left renal stent with left hydronephrosis and renal atrophy. VQ scan -> low probability for PE worsening resp status was due to need for HD, now after HD started, resp status improving, down to PEEP 5 and AC 20 trach care , pulmonary toilet ABG this am on FiO2 45 % mild hypoxia, but pulse oximetry above 90% , keep as is and titrate Fio2 further down as tolerated fup with ABG and CXR Mucomyst was prior dc given lots of thin secretions, continue Duoneb prn rapid COVID 19 NGT x3 sedation with fentanyl gtt and Versed prn-> off Versed and on weaning from Fentanyl as tolerated unable to wean, gets agitated and anxious 10/03 night desaturated, apparently due to anxiety, Fio2 up to 100% again ABG and CXR noted, now after HD with UF 10/06 down to 60% unable to wean from fentanyl, gets very anxious when down titrating Fentanyl psych eval appreciated, psych meds regimen implemented discussed with psych re possible change in psych meds in order to be able to wean from Fentanyl gtt Haldol IM prn added, will monitor s/p thoracentesis L pleural effusion 09/26 am -> 900 ml fluid analysis noted, unlikely empyema given small # of WBC fup with fluid cx ( apparently never sent despite orders) cytology -> NGT, no malignant cells aspiration precautions venous Duplex BLE -> NGT DVT prophylaxis pulm toilet, abx as per ID- s/p gent x 1, now on Vanco and Zerbaxa , completed 10/02 SCX 09/15 + Proteus, SCX 09/22 Pseudomonas MDR UCX 09/14 + Providencia , UCX 09/22 VRE - K only BCX 09/14 Staph epidermidis, BCX 09/15 NGT , BCX 09/22 and 09/26 - NGTD monitor volumes was on gentle IVF-> dc s/p prior diuretic-Lasix require initiation of HD close monitoring of volumes, renal parameters and lytes -per nephro recs HD as per nephro s/p HD with UF U 10/06, able to wean to 60% FiO2 this am CXR in am titrate FiO2 as able ECHO with pEF , moderate pulm HTN and moderate AR BP management with current regimen of BB, Cardizem and Hydralazine, remains in SR monitor HH with goal to keep Hgb >7, heme on board on EPO supportive care pain management wound care bowel regimen psych eval Dr Linares pending s/p Seroquel x 1 by nephro thank you for a consult Critical Care - Objective Last 24 Hour Vital Signs Date Time Temp Pulse Resp B/P (MAP) Pulse Ox O2 Delivery O2 Flow Rate FiO2 10/08/19 10:05 165/69 10/08/19 09:00 57 165/69 10/08/19 07:16 57 21 100 Mechanical Ventilator 60 58 20 60 10/08/19 07:00 18 165/69 Mechanical Ventilator 60 10/08/19 07:00 62 18 165/69 (101) 99 10/08/19 06:30 56 20 162/63 (96) 98 10/08/19 06:00 20 153/63 Mechanical Ventilator 60 10/08/19 06:00 54 20 153/63 (93) 98 10/08/19 05:56 54 143/58 10/08/19 05:30 54 20 150/58 (88) 99 10/08/19 05:17 54 20 60 10/08/19 05:00 20 143/58 Mechanical Ventilator 60 10/08/19 05:00 56 20 143/58 (86) 99 10/08/19 04:30 56 20 155/60 (91) 98 10/08/19 04:00 Mechanical Ventilator Mechanical Ventilator 10/08/19 04:00 98.1 55 20 161/64 (96) 98 10/08/19 04:00 20 161/64 Mechanical Ventilator 60 10/08/19 04:00 60 10/08/19 03:30 54 20 152/60 (90) 98 10/08/19 03:28 54 10/08/19 03:20 57 21 60 10/08/19 03:00 22 152/58 Mechanical Ventilator 60 10/08/19 03:00 56 22 152/58 (89) 98 10/08/19 02:30 58 20 139/53 (81) 97 10/08/19 02:00 20 142/94 Mechanical Ventilator 60 10/08/19 02:00 55 20 142/94 (110) 97 10/08/19 01:30 56 21 146/52 (83) 98 10/08/19 01:00 55 20 139/51 (80) 98 10/08/19 01:00 20 132/47 Mechanical Ventilator 60 10/08/19 00:52 58 20 60 10/08/19 00:30 56 22 128/51 (76) 95 10/08/19 00:00 Mechanical Ventilator Mechanical Ventilator 10/08/19 00:00 57 10/08/19 00:00 21 118/48 Mechanical Ventilator 60 10/08/19 00:00 56 126/53 10/08/19 00:00 98.7 57 21 118/48 (71) 95 10/08/19 00:00 60 10/07/19 23:30 58 20 130/51 (77) 95 10/07/19 23:18 57 20 60 10/07/19 23:00 57 23 119/49 (72) 94 10/07/19 23:00 23 119/49 Mechanical Ventilator 60 10/07/19 22:30 60 25 115/53 (73) 97 10/07/19 22:00 59 22 138/52 (80) 97 10/07/19 22:00 22 138/52 Mechanical Ventilator 60 10/07/19 21:30 65 26 147/52 (83) 98 10/07/19 21:00 64 21 138/56 (83) 96 10/07/19 21:00 21 138/56 Mechanical Ventilator 60 10/07/19 20:58 63 20 60 10/07/19 20:57 62 125/51 10/07/19 20:30 73 22 140/51 (80) 97 10/07/19 20:00 69 10/07/19 20:00 25 123/51 Mechanical Ventilator 60 10/07/19 20:00 98.6 69 25 123/51 (75) 99 10/07/19 20:00 60 10/07/19 20:00 Mechanical Ventilator Mechanical Ventilator 10/07/19 19:30 75 24 129/48 (75) 100 10/07/19 19:25 80 28 60 10/07/19 19:00 24 140/61 Mechanical Ventilator 60 10/07/19 19:00 99.0 82 25 140/61 (87) 98 10/07/19 18:45 28 122/57 Mechanical Ventilator 60 10/07/19 18:45 83 28 122/57 (78) 92 10/07/19 18:30 84 29 154/61 (92) 99 10/07/19 18:30 26 168/65 Mechanical Ventilator 60 10/07/19 18:00 84 33 186/75 (112) 100 10/07/19 18:00 29 186/75 Mechanical Ventilator 60 10/07/19 17:30 76 18 196/81 (119) 92 10/07/19 17:05 98 35 60 10/07/19 17:00 71 24 146/56 (86) 10/07/19 17:00 25 146/56 Mechanical Ventilator 60 10/07/19 16:30 67 23 142/56 (84) 97 10/07/19 16:00 62 10/07/19 16:00 98.1 62 20 151/59 (89) 10/07/19 16:00 21 144/53 Mechanical Ventilator 60 10/07/19 16:00 Mechanical Ventilator Mechanical Ventilator 10/07/19 16:00 60 10/07/19 15:30 61 20 145/55 (85) 10/07/19 15:28 20 145/55 Mechanical Ventilator 60 10/07/19 15:28 20 145/55 Mechanical Ventilator 60 10/07/19 15:00 20 145/55 Mechanical Ventilator 60 10/07/19 15:00 61 20 60 10/07/19 15:00 63 20 145/55 (85) 10/07/19 14:30 63 20 135/53 (80) 10/07/19 14:00 59 20 148/57 (87) 10/07/19 14:00 20 148/57 Mechanical Ventilator 60 10/07/19 13:30 58 20 157/58 (91) 10/07/19 13:05 58 20 60 10/07/19 13:00 59 20 141/54 (83) 10/07/19 13:00 20 157/58 Mechanical Ventilator 60 10/07/19 12:42 20 142/64 Endotracheal Tube 60 10/07/19 12:41 20 142/54 Mechanical Ventilator 60 10/07/19 12:35 60 10/07/19 12:30 58 20 142/54 (83) 98 10/07/19 12:29 60 10/07/19 12:15 58 20 10/07/19 12:00 98.2 58 20 141/59 (86) 10/07/19 12:00 Mechanical Ventilator Mechanical Ventilator 10/07/19 12:00 80 10/07/19 12:00 20 142/76 Mechanical Ventilator 80 10/07/19 12:00 58 141/59 10/07/19 12:00 58 10/07/19 11:30 64 19 144/75 (98) 92 10/07/19 11:10 72 24 80 10/07/19 11:00 21 167/65 Mechanical Ventilator 80 10/07/19 11:00 65 21 174/70 (104) 98 10/07/19 10:30 60 20 149/56 (87) 94 Objective: General Appearance: no apparent distress, bedridden middle age chronically ill looking female on vent AC 500-20- 100%, PEEP 5, sedated Lines, tubes and drains: left jugular HD catheter HEENT: normocephalic, atraumatic, anicteric, trach - Shiley #7 cuffed XLT, secretions moderate amount, yellow color , thick consistency Respiratory/Chest: no accessory muscle use, few scattered rhonchi bilaterally , Cardiovascular/Chest: normal rate, regular rhythm - SR on tele Abdomen: normal bowel sounds, non tender, soft, G tube Genitourinary/Rectal: Norman Extremities: no edema Skin Exam: warm/dry, multiple tattoos all over the body Neurologic: abnormal gait, sedated Musculoskeletal: atrophy - BLE Accucheck: 103 Critical Care - Subjective ROS Limited/Unobtainable: Yes Interval Events: FiO2 down to 60% mild leukocytosis this am, afebrile s/p 10/06 HD with UF anxious Fentanyl gtt 230 mcg/hr Condition: critical IV Access: central - RIJ HD catheter intact EKG Rhythm: Sinus Rhythm FI02: 60 Vent Support Breath Rate: 20 Vent Support Mode: AC Vent Tidal Volume: 500 Sputum Amount: Scant PEEP: 5.0 PIP: 17 Drips: Fentanyl gtt 230 mch/hr Tube Feeding Amount: 40 I&O: Intake and Output 10/07/19 10/08/19 19:00 07:00 Intake Total 676.750 ml 1006 ml Output Total 105 ml 3080 ml Balance 571.750 ml -2074 ml IV Total 236.750 ml 276 ml Tube Feeding 440 ml 480 ml Other 250 ml Output Urine Total 105 ml 80 ml Hemodialysis UF 3000 ml # Bowel Movements 2 2 CXR: CXR 10/05 Reduced lung volumes. Bilateral pulmonary opacities. Could be from edema and/or pneumonia. Bang Guardado MD 10/08/192056: Critical Care - Asmt/Plan Assessment/Plan: Patient seen and examined with UTILITIES ESTIMATOR AND DRAFTER. Agree with above A&P as it reflects our joint deliberations. -Cont to wean FiO2 -minimize sedatives -monitor volumes, fluid removal via HD Yara Castro NP Oct 08, 2019 10:28 Bang Guardado MD Oct 08, 2019 20:57
--- NOTE | 2019-10-08 11:14 | Infectious Diseases Prog Note ---
Assessment/Plan 49yo F with: Acute hypoxic resp failure: Now on vent, worsening, FiO2 100% > 80% 09/27 > 60% Pneumonia, COVID19 neg x3 - worsening MDR PsA pneumonia,s pr x 09/29 CXR: Bilateral edema versus infiltrates appears slightly worse than on the prior study. There is probably some pleural fluid on the left. 09/26 S/P thoracentesis, 900cc removed, only 67 WBC in fluid analysis, unlikely empyema 09/26 CXR: Worsening R perihilar opacity 09/26 BCx NTD 09/24 CXR: Previously demonstrated right lateral basilar lucency is no longer evident, was presumably a skin fold artifact. Bilateral infiltrates and left pleural effusion are probably unchanged allowing for slight differences in technique. 09/22 Resp cx + MDR PsA (S-gent; I-colistin; R-levofloxacin, Zosyn, angelo) 09/22 BCx NTD 09/22 CXR: worsening BL pna 09/22 UA w/ persistent pyuria, now on HD, UCx +VRE, most likely colonizer as improving wo tx for this 09/19 V/Q scan, low probability of PE 09/18 Rapid COVID PCR neg 09/18 CT chest: Markedly suboptimal examination due to lack of IV contrast material. Bilateral pleural effusions, right greater than left, with bilateral lower lobe consolidation or volume loss. Ground glass densities in the upper lobes bilaterally. This is not specific. Tracheostomy. Increased superior mediastinal density. Stability of adenopathy cannot be excluded. Atherosclerotic change. Gastrostomy. Ascites. Left renal stent with left hydronephrosis and renal atrophy. 09/17 Chest US: Trace right and small left pleural effusions. No safe window identified for bedside thoracentesis. Note that the majority of the left pleural effusion is subpulmonic. 09/16 CXR: Worsening of right lung infiltrates and right effusion. V. duplex: NO DVT D-dimer elevated 09/15 Rapid COVID PCR neg 09/15 Sp cx ESBL P. mirablis 09/14 CXR: Bilateral airspace opacities, preferentially involving the right lung, consistent with multifocal infiltrate. Trace bilateral pleural effusions. No pneumothorax. Rapid COVID PCR neg Urine legionella neg 09/16 GPC bacteremia, real vs contaminant; does have hx of infected PPM- could be a possibility- ro endocarditis 8/2 Bcx 2/4 S. epidermis; 09/15 Bcx NTD 2d echo: no vegetations seen UTI 09/14 u/a wbc tnct, nit neg, leuk +3; ucx >100k MDR P. stuarti (S Ceftriaxone, Meropenem) 09/22 UA w/ ongoing pyuria, unchanged Unstageable sacral ulceration Afebrile Leukocytosis, mild; fluctuates bt 12-13 JAVIER on CKD --> now on HD Renal US: Limited exam due to abdominal ascites and shadowing from bowel gas. CT recommended for more sensitive evaluation. Moderate right hydronephrosis. Increased renal parenchymal echogenicity suggesting intrinsic/ medical renal disease. Question indwelling left ureteral stent versus artifact. Bladder not visualized. 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 epi-11/2018, sp > 6weeks IV vancomycin 11/27 SP ABBIE: no evidence for vegetation on any of the valves 11/26/18 SP PPM removal: OR findings:The fibrous capsule enclosing the generator was then opened and there was a [id number] amount of yellowish fluid drainage. The generator was then removed.Atrial and ventricular leads were detached. The necrotic tissue of the pocket was then removed and the pocket was flushed with an antibiotic solution. Capsule, wound tissue and lead tip cx: Neg 2d echo: no vegetation seen US chest: 4.6 x 3.4 x 0.9 cm hypoechoic/anechoic area overlying left chest pacemaker power pack. This could represent either a discrete fluid collection or a focal area of very edematous tissue. Infected fluid pocket also possible. 11/18 Bcx 3/4 S. epi; 11/20 Bcx neg; 11/24 Bcx Neg; 11/27 Bcx Neg Hx of PNA 11/2019? sp cx PsA (arnett S), ABC (I Ceftriaxone; otherwise negative) Sp cx MRSA, ABC (I Ceftriaxone; otherwise S) PMH: Afib HTN Dysphagia sp GT Aortic dissection s/p repair 2017, S/p PPM Parkinson's Disease Schizophrenia Anxiety COPD Chronic resp failure s/p trach Hx of tracheal bleeding [place] resident ([facility]) Plan: Cont to monitor off abx Trend resp status, leukocytosis D/w micro about sending MDR PsA out for further sensi to Zerbaxa and Avycaz, [facility] [place] sent out of Tuesday 09/26, d/w Micro today, won't have results until 10/06 ([phone]), f/u these results just for future reference Aggressive volume removal as tolerated by HD, BNP >35,000 10/03 SP Zerbaxa #6, gent #7 for MDR PsA pna 09/29 SP vanco #15 for S.epi in BCx 09/27 SP angelo #13 09/16 SP Cefepime #3, Levaquin #3 Monitor CBC/CMP, temperatures ICU/ trach/ peg care Aspiration precautions u/a w/ reflex CXR am D/w RN Thank you for this consultation. Will continue to follow along with you. Subjective Allergies: Coded Allergies: No Known Allergies (Unverified , 10/10/17) afebrile mild leukocytosis Fio2 down to 60% off abx Objective Last 24 Hour Vital Signs Date Time Temp Pulse Resp B/P (MAP) Pulse Ox O2 Delivery O2 Flow Rate FiO2 10/08/19 10:34 98.1 10/08/19 10:32 61 21 100 Mechanical Ventilator 60 58 20 60 10/08/19 10:30 76 27 196/74 (114) 95 10/08/19 10:30 75 30 170/74 (106) 96 10/08/19 10:05 165/69 10/08/19 10:00 61 21 152/59 (90) 98 10/08/19 09:30 61 20 155/65 (95) 97 10/08/19 09:00 71 17 166/76 (106) 96 10/08/19 09:00 57 165/69 10/08/19 08:30 68 21 163/61 (95) 100 10/08/19 08:00 60 10/08/19 08:00 Mechanical Ventilator Mechanical Ventilator 10/08/19 08:00 98.4 57 20 150/61 (90) 100 10/08/19 08:00 76 10/08/19 07:30 59 15 142/62 (88) 100 10/08/19 07:16 57 21 100 Mechanical Ventilator 60 58 20 60 10/08/19 07:00 18 165/69 Mechanical Ventilator 60 10/08/19 07:00 62 18 165/69 (101) 99 10/08/19 06:30 56 20 162/63 (96) 98 10/08/19 06:00 20 153/63 Mechanical Ventilator 60 10/08/19 06:00 54 20 153/63 (93) 98 10/08/19 05:56 54 143/58 10/08/19 05:30 54 20 150/58 (88) 99 10/08/19 05:17 54 20 60 10/08/19 05:00 20 143/58 Mechanical Ventilator 60 10/08/19 05:00 56 20 143/58 (86) 99 10/08/19 04:30 56 20 155/60 (91) 98 10/08/19 04:00 Mechanical Ventilator Mechanical Ventilator 10/08/19 04:00 98.1 55 20 161/64 (96) 98 10/08/19 04:00 20 161/64 Mechanical Ventilator 60 10/08/19 04:00 60 10/08/19 03:30 54 20 152/60 (90) 98 10/08/19 03:28 54 10/08/19 03:20 57 21 60 10/08/19 03:00 22 152/58 Mechanical Ventilator 60 10/08/19 03:00 56 22 152/58 (89) 98 10/08/19 02:30 58 20 139/53 (81) 97 10/08/19 02:00 20 142/94 Mechanical Ventilator 60 10/08/19 02:00 55 20 142/94 (110) 97 10/08/19 01:30 56 21 146/52 (83) 98 10/08/19 01:00 55 20 139/51 (80) 98 10/08/19 01:00 20 132/47 Mechanical Ventilator 60 10/08/19 00:52 58 20 60 10/08/19 00:30 56 22 128/51 (76) 95 10/08/19 00:00 Mechanical Ventilator Mechanical Ventilator 10/08/19 00:00 57 10/08/19 00:00 21 118/48 Mechanical Ventilator 60 10/08/19 00:00 56 126/53 10/08/19 00:00 98.7 57 21 118/48 (71) 95 10/08/19 00:00 60 10/07/19 23:30 58 20 130/51 (77) 95 10/07/19 23:18 57 20 60 10/07/19 23:00 57 23 119/49 (72) 94 10/07/19 23:00 23 119/49 Mechanical Ventilator 60 10/07/19 22:30 60 25 115/53 (73) 97 10/07/19 22:00 59 22 138/52 (80) 97 10/07/19 22:00 22 138/52 Mechanical Ventilator 60 10/07/19 21:30 65 26 147/52 (83) 98 10/07/19 21:00 64 21 138/56 (83) 96 10/07/19 21:00 21 138/56 Mechanical Ventilator 60 10/07/19 20:58 63 20 60 10/07/19 20:57 62 125/51 10/07/19 20:30 73 22 140/51 (80) 97 10/07/19 20:00 69 10/07/19 20:00 25 123/51 Mechanical Ventilator 60 10/07/19 20:00 98.6 69 25 123/51 (75) 99 10/07/19 20:00 60 10/07/19 20:00 Mechanical Ventilator Mechanical Ventilator 10/07/19 19:30 75 24 129/48 (75) 100 10/07/19 19:25 80 28 60 10/07/19 19:00 24 140/61 Mechanical Ventilator 60 10/07/19 19:00 99.0 82 25 140/61 (87) 98 10/07/19 18:45 28 122/57 Mechanical Ventilator 60 10/07/19 18:45 83 28 122/57 (78) 92 10/07/19 18:30 84 29 154/61 (92) 99 10/07/19 18:30 26 168/65 Mechanical Ventilator 60 10/07/19 18:00 84 33 186/75 (112) 100 10/07/19 18:00 29 186/75 Mechanical Ventilator 60 10/07/19 17:30 76 18 196/81 (119) 92 10/07/19 17:05 98 35 60 10/07/19 17:00 71 24 146/56 (86) 10/07/19 17:00 25 146/56 Mechanical Ventilator 60 10/07/19 16:30 67 23 142/56 (84) 97 10/07/19 16:00 62 10/07/19 16:00 98.1 62 20 151/59 (89) 10/07/19 16:00 21 144/53 Mechanical Ventilator 60 10/07/19 16:00 Mechanical Ventilator Mechanical Ventilator 10/07/19 16:00 60 10/07/19 15:30 61 20 145/55 (85) 10/07/19 15:28 20 145/55 Mechanical Ventilator 60 10/07/19 15:28 20 145/55 Mechanical Ventilator 60 10/07/19 15:00 20 145/55 Mechanical Ventilator 60 10/07/19 15:00 61 20 60 10/07/19 15:00 63 20 145/55 (85) 10/07/19 14:30 63 20 135/53 (80) 10/07/19 14:00 59 20 148/57 (87) 10/07/19 14:00 20 148/57 Mechanical Ventilator 60 10/07/19 13:30 58 20 157/58 (91) 10/07/19 13:05 58 20 60 10/07/19 13:00 59 20 141/54 (83) 10/07/19 13:00 20 157/58 Mechanical Ventilator 60 10/07/19 12:42 20 142/64 Endotracheal Tube 60 10/07/19 12:41 20 142/54 Mechanical Ventilator 60 10/07/19 12:35 60 10/07/19 12:30 58 20 142/54 (83) 98 10/07/19 12:29 60 10/07/19 12:15 58 20 10/07/19 12:00 98.2 58 20 141/59 (86) 10/07/19 12:00 Mechanical Ventilator Mechanical Ventilator 10/07/19 12:00 80 10/07/19 12:00 20 142/76 Mechanical Ventilator 80 10/07/19 12:00 58 141/59 10/07/19 12:00 58 10/07/19 11:30 64 19 144/75 (98) 92 Height (Feet): 5 Height (Inches): 5.00 Weight (Pounds): 140 Cardiovascular: RrR Respiratory: decreased breath sounds Abdomen: soft, non-tender, present bowel sounds Extremities: no edema, no tenderness, no cyanosis Laboratory Tests Test 10/08/19 03:15 White Blood Count 12.1 K/UL (4.8-10.8) #H Red Blood Count 2.98 M/UL (4.20-5.40) L Hemoglobin 9.3 G/DL (12.0-16.0) L Hematocrit 28.8 % (37.0-47.0) L Mean Corpuscular Volume 97 FL (80-99) Mean Corpuscular Hemoglobin 31.1 PG (27.0-31.0) H Mean Corpuscular Hemoglobin Concent 32.2 G/DL (32.0-36.0) Red Cell Distribution Width 14.9 % (11.6-14.8) H Platelet Count 419 K/UL (150-450) Mean Platelet Volume 5.9 FL (6.5-10.1) L Neutrophils (%) (Auto) 83.2 % (45.0-75.0) H Lymphocytes (%) (Auto) 11.4 % (20.0-45.0) L Monocytes (%) (Auto) 4.3 % (1.0-10.0) Eosinophils (%) (Auto) 0.4 % (0.0-3.0) Basophils (%) (Auto) 0.8 % (0.0-2.0) Sodium Level 134 MMOL/L (136-145) L Potassium Level 4.0 MMOL/L (3.5-5.1) Chloride Level 101 MMOL/L (98-107) Carbon Dioxide Level 24 MMOL/L (21-32) Anion Gap 9 mmol/L (5-15) Blood Urea Nitrogen 54 mg/dL (7-18) H Creatinine 2.5 MG/DL (0.55-1.30) H Estimat Glomerular Filtration Rate 20.6 mL/min (>60) Glucose Level 106 MG/DL (74-106) Calcium Level 8.8 MG/DL (8.5-10.1) Current Medications Medications (Trade) Dose Ordered Sig/Penny Route PRN Reason Start Time Stop Time Status Last Admin Dose Admin Acetaminophen (Tylenol) 325 mg Q6H PRN GT Temp >100.5 09/23/19 10:45 10/23/19 10:44 09/23/19 18:55 Albuterol/ Ipratropium (Albuterol/ Ipratropium) 3 ml Q6HRT HHN 10/04/19 13:00 10/09/19 12:59 10/08/19 07:15 Ascorbic Acid (Vitamin C) 500 mg DAILY ORAL 10/06/19 09:00 11/05/19 08:59 10/08/19 10:05 Chlorhexidine Gluconate (Ling-Hex 2%) 1 applic DAILY@2000 TOPIC 09/23/19 20:00 12/22/19 19:59 10/07/19 19:32 Dextrose (Dextrose 50%) 25 ml Q30M PRN IV Hypoglycemia 10/05/19 18:30 01/03/20 18:29 Dextrose (Dextrose 50%) 50 ml Q30M PRN IV Hypoglycemia 10/05/19 18:30 01/03/20 18:29 Diltiazem HCl (Cardizem Tab) 60 mg Q6HR GT 10/04/19 18:00 11/03/19 17:59 10/06/19 18:18 Docusate Sodium (Colace) 100 mg Q8H GT 09/29/19 08:30 10/29/19 08:29 10/07/19 17:06 Epoetin Gelacio (Epoetin Gelacio(ESRD on dialysis)) 10,000 unit MON-MON-MON SUBQ 09/25/19 21:00 12/24/19 20:59 10/07/19 20:57 Fentanyl Citrate 250 ml @ 0 mls/hr Q24H IV 10/07/19 15:00 10/09/19 12:29 10/08/19 01:00 Haloperidol Lactate (Haldol) 5 mg Q6H PRN IM Agitation 10/08/19 11:00 11/22/19 10:59 Heparin Sodium (Porcine) (Heparin 5000 units/ml) 5,000 units EVERY 12 HOURS SUBQ 09/17/19 21:00 10/30/19 08:59 10/08/19 10:06 Hydralazine HCl (Apresoline) 10 mg Q4H PRN IV BP over 160 systolic 09/17/19 11:15 12/14/19 11:14 10/04/19 09:04 Insulin Aspart (NovoLOG) Q6HR SUBQ 10/06/19 00:00 01/03/20 20:59 Lactulose (Cephulac) 10 gm THREE TIMES A DAY ORAL 10/03/19 13:00 11/02/19 12:59 10/07/19 17:06 Lansoprazole (Prevacid) 30 mg Q12HR GT 09/27/19 21:00 10/27/19 20:59 10/08/19 10:05 Lisinopril (ZestriL) 10 mg BID GT 10/06/19 18:00 11/03/19 13:29 10/08/19 10:05 Metoclopramide HCl (Reglan) 10 mg Q8H IVP 09/29/19 14:00 10/29/19 13:59 10/08/19 05:34 Metoprolol Tartrate (Lopressor) 50 mg EVERY 12 HOURS GT 10/04/19 21:00 12/14/19 20:59 10/07/19 20:57 Midazolam HCl (Versed 2mg/2ml vial) 1 mg Q4H PRN IVP For Anxiety 09/21/19 09:30 10/14/19 09:29 10/08/19 10:05 Minoxidil (Loniten) 2.5 mg Q6HR PRN GT BP OVER 170 SYST 10/05/19 08:30 12/31/19 13:59 Polyethylene Glycol (Miralax) 17 gm BEDTIME ORAL 10/01/19 21:00 10/31/19 20:59 10/07/19 20:57 Risperidone (RisperDAL) 2 mg BEDTIME ORAL 10/05/19 21:00 11/19/19 20:59 10/07/19 20:58 Sertraline HCl (Zoloft) 100 mg BEDTIME GT 09/17/19 21:00 10/15/19 20:59 10/07/19 20:58 Sorbitol (sorbitoL) 30 ml EVERY 6 HOURS PRN GT Constipation 09/29/19 18:00 10/29/19 17:59 10/01/19 00:44 Tramadol HCl (Ultram) 25 mg Q6H GT 10/07/19 11:00 10/14/19 10:59 10/08/19 10:04 Vitamin B Complex/ Vit C/Folic Acid (Nephrovite) 1 tab DAILY ORAL 10/06/19 09:00 11/05/19 08:59 10/08/19 10:05 Zinc Sulfate (Zinc Sulfate) 220 mg DAILY ORAL 10/06/19 09:00 10/16/19 08:59 10/08/19 10:05 Doreen Nino M.D. Oct 08, 2019 11:14
--- NOTE | 2019-10-08 11:54 | Diagnostic Imaging Report ---
Indication: Shortness of breath Technique: One view of the chest Comparison: 10/06/2019 Findings: Left jugular dialysis catheter again demonstrated. Bilateral infiltrates versus edema, left greater than right pleural effusions are again demonstrated, unchanged. There is slightly better inspiration currently. Tracheostomy remains. The heart size is normal Impression: Unchanged, over 2 days, findings as above.
--- NOTE | 2019-10-08 12:13 | General Progress Note ---
Assessment/Plan Problem List: (1) S/P aortic dissection repair ICD Codes: Z98.890 - Other specified postprocedural states SNOMED: 729327075, 925787137 (2) Sacral decubitus ulcer, stage IV ICD Codes: L89.154 - Pressure ulcer of sacral region, stage 4 SNOMED: 460254851, 022772881 (3) Anemia ICD Codes: D64.9 - Anemia, unspecified SNOMED: 101148499 (4) GT CLOGGED (5) Feeding by G-tube ICD Codes: Z93.1 - Gastrostomy status SNOMED: 435310425, 222139956 (6) Tracheostomy in place ICD Codes: Z93.0 - Tracheostomy status SNOMED: 486584071 (7) Pacemaker ICD Codes: Z95.0 - Presence of cardiac pacemaker SNOMED: 692139683 (8) Chronic respiratory failure ICD Codes: J96.10 - Chronic respiratory failure, unspecified whether with hypoxia or hypercapnia SNOMED: 38222003 Assessment/Plan: GTF monitor for residuals repeat labs ICU care on lactulose Subjective ROS Limited/Unobtainable: No Allergies: Coded Allergies: No Known Allergies (Unverified , 10/10/17) Objective Last 24 Hour Vital Signs Date Time Temp Pulse Resp B/P (MAP) Pulse Ox O2 Delivery O2 Flow Rate FiO2 10/08/19 10:34 98.1 10/08/19 10:32 61 21 100 Mechanical Ventilator 60 58 20 60 10/08/19 10:30 76 27 196/74 (114) 95 10/08/19 10:30 75 30 170/74 (106) 96 10/08/19 10:05 165/69 10/08/19 10:00 61 21 152/59 (90) 98 10/08/19 09:30 61 20 155/65 (95) 97 10/08/19 09:00 71 17 166/76 (106) 96 10/08/19 09:00 57 165/69 10/08/19 08:30 68 21 163/61 (95) 100 10/08/19 08:00 60 10/08/19 08:00 Mechanical Ventilator Mechanical Ventilator 10/08/19 08:00 98.4 57 20 150/61 (90) 100 10/08/19 08:00 76 8/25/20 07:30 59 15 142/62 (88) 100 10/08/19 07:16 57 21 100 Mechanical Ventilator 60 58 20 60 10/08/19 07:00 18 165/69 Mechanical Ventilator 60 10/08/19 07:00 62 18 165/69 (101) 99 10/08/19 06:30 56 20 162/63 (96) 98 10/08/19 06:00 20 153/63 Mechanical Ventilator 60 10/08/19 06:00 54 20 153/63 (93) 98 10/08/19 05:56 54 143/58 10/08/19 05:30 54 20 150/58 (88) 99 10/08/19 05:17 54 20 60 10/08/19 05:00 20 143/58 Mechanical Ventilator 60 10/08/19 05:00 56 20 143/58 (86) 99 10/08/19 04:30 56 20 155/60 (91) 98 10/08/19 04:00 Mechanical Ventilator Mechanical Ventilator 10/08/19 04:00 98.1 55 20 161/64 (96) 98 10/08/19 04:00 20 161/64 Mechanical Ventilator 60 10/08/19 04:00 60 10/08/19 03:30 54 20 152/60 (90) 98 10/08/19 03:28 54 10/08/19 03:20 57 21 60 10/08/19 03:00 22 152/58 Mechanical Ventilator 60 10/08/19 03:00 56 22 152/58 (89) 98 10/08/19 02:30 58 20 139/53 (81) 97 10/08/19 02:00 20 142/94 Mechanical Ventilator 60 10/08/19 02:00 55 20 142/94 (110) 97 10/08/19 01:30 56 21 146/52 (83) 98 10/08/19 01:00 55 20 139/51 (80) 98 10/08/19 01:00 20 132/47 Mechanical Ventilator 60 10/08/19 00:52 58 20 60 10/08/19 00:30 56 22 128/51 (76) 95 10/08/19 00:00 Mechanical Ventilator Mechanical Ventilator 10/08/19 00:00 57 10/08/19 00:00 21 118/48 Mechanical Ventilator 60 10/08/19 00:00 56 126/53 10/08/19 00:00 98.7 57 21 118/48 (71) 95 10/08/19 00:00 60 10/07/19 23:30 58 20 130/51 (77) 95 10/07/19 23:18 57 20 60 10/07/19 23:00 57 23 119/49 (72) 94 10/07/19 23:00 23 119/49 Mechanical Ventilator 60 10/07/19 22:30 60 25 115/53 (73) 97 10/07/19 22:00 59 22 138/52 (80) 97 10/07/19 22:00 22 138/52 Mechanical Ventilator 60 10/07/19 21:30 65 26 147/52 (83) 98 10/07/19 21:00 64 21 138/56 (83) 96 10/07/19 21:00 21 138/56 Mechanical Ventilator 60 10/07/19 20:58 63 20 60 10/07/19 20:57 62 125/51 10/07/19 20:30 73 22 140/51 (80) 97 10/07/19 20:00 69 10/07/19 20:00 25 123/51 Mechanical Ventilator 60 10/07/19 20:00 98.6 69 25 123/51 (75) 99 10/07/19 20:00 60 10/07/19 20:00 Mechanical Ventilator Mechanical Ventilator 10/07/19 19:30 75 24 129/48 (75) 100 10/07/19 19:25 80 28 60 10/07/19 19:00 24 140/61 Mechanical Ventilator 60 10/07/19 19:00 99.0 82 25 140/61 (87) 98 10/07/19 18:45 28 122/57 Mechanical Ventilator 60 10/07/19 18:45 83 28 122/57 (78) 92 10/07/19 18:30 84 29 154/61 (92) 99 10/07/19 18:30 26 168/65 Mechanical Ventilator 60 10/07/19 18:00 84 33 186/75 (112) 100 10/07/19 18:00 29 186/75 Mechanical Ventilator 60 10/07/19 17:30 76 18 196/81 (119) 92 10/07/19 17:05 98 35 60 10/07/19 17:00 71 24 146/56 (86) 10/07/19 17:00 25 146/56 Mechanical Ventilator 60 8/24/20 16:30 67 23 142/56 (84) 97 10/07/19 16:00 62 10/07/19 16:00 98.1 62 20 151/59 (89) 10/07/19 16:00 21 144/53 Mechanical Ventilator 60 10/07/19 16:00 Mechanical Ventilator Mechanical Ventilator 10/07/19 16:00 60 10/07/19 15:30 61 20 145/55 (85) 10/07/19 15:28 20 145/55 Mechanical Ventilator 60 10/07/19 15:28 20 145/55 Mechanical Ventilator 60 10/07/19 15:00 20 145/55 Mechanical Ventilator 60 10/07/19 15:00 61 20 60 10/07/19 15:00 63 20 145/55 (85) 10/07/19 14:30 63 20 135/53 (80) 10/07/19 14:00 59 20 148/57 (87) 10/07/19 14:00 20 148/57 Mechanical Ventilator 60 10/07/19 13:30 58 20 157/58 (91) 10/07/19 13:05 58 20 60 10/07/19 13:00 59 20 141/54 (83) 10/07/19 13:00 20 157/58 Mechanical Ventilator 60 10/07/19 12:42 20 142/64 Endotracheal Tube 60 10/07/19 12:41 20 142/54 Mechanical Ventilator 60 10/07/19 12:35 60 10/07/19 12:30 58 20 142/54 (83) 98 10/07/19 12:29 60 10/07/19 12:15 58 20 Intake and Output 10/07/19 10/08/19 19:00 07:00 Intake Total 676.750 ml 1006 ml Output Total 105 ml 3080 ml Balance 571.750 ml -2074 ml IV Total 236.750 ml 276 ml Tube Feeding 440 ml 480 ml Other 250 ml Output Urine Total 105 ml 80 ml Hemodialysis UF 3000 ml # Bowel Movements 2 2 Laboratory Tests 10/08/19 03:15: White Blood Count 12.1#H, Red Blood Count 2.98L, Hemoglobin 9.3L, Hematocrit 28.8L, Mean Corpuscular Volume 97, Mean Corpuscular Hemoglobin 31.1H, Mean Corpuscular Hemoglobin Concent 32.2, Red Cell Distribution Width 14.9H, Platelet Count 419, Mean Platelet Volume 5.9L, Neutrophils (%) (Auto) 83.2H, Lymphocytes (%) (Auto) 11.4L, Monocytes (%) (Auto) 4.3, Eosinophils (%) (Auto) 0.4, Basophils (%) (Auto) 0.8, Sodium Level 134L, Potassium Level 4.0, Chloride Level 101, Carbon Dioxide Level 24, Anion Gap 9, Blood Urea Nitrogen 54H, Creatinine 2.5H, Estimat Glomerular Filtration Rate 20.6, Glucose Level 106, Calcium Level 8.8 Height (Feet): 5 Height (Inches): 5.00 Weight (Pounds): 140 General Appearance: lethargic EENT: normal ENT inspection Neck: supple Cardiovascular: normal rate Respiratory/Chest: decreased breath sounds Abdomen: normal bowel sounds, non tender, soft Extremities: non-tender Inder Mccauley MD Oct 08, 2019 12:13
[2019-10-08] MEDS: Haloperidol 5mg/ml Inj IM PRN (12:34)
--- NOTE | 2019-10-08 13:23 | Nephrology Progress Note ---
Assessment/Plan Problem List: (1) JAVIER (acute kidney injury) (2) Renal failure (ARF), acute on chronic (3) Dehydration (4) Electrolyte imbalance (5) Anemia (6) Respiratory failure, acute and chronic (7) COPD with exacerbation Assessment Patient is presented with sepsis and pneumonia and UTI Patient has acute renal failure, possible underlying chronic kidney failure Severe anemia Electrolyte imbalances: Hyponatremia, hypo-kalemia Chronic respiratory failure, COPD exacerbation Plan October 07: Labs reviewed. Patient was dialyzed yesterday. 3000 mL fluid was removed. Patient appears to need periodic (twice a week minimum) dialysis for ultrafiltration. Continue to monitor renal parameters. Continue per consultants. October 06: Labs reviewed. Discussed with pulmonary. Will attempt dialysis and ultrafiltration. Continue per consultants. October 05: Lab reviewed. Serum creatinine rising. Blood pressure stabilized. Will recheck lab tomorrow. Dialysis as needed. Will increase lisinopril to 10 mg twice a day. October 04: Lab reviewed. Blood pressure medication adjusted since the patient is hypotensive. Serum creatinine rising. Recheck labs tomorrow. Dialysis as needed. Discussed with RN. October 03: Lab reviewed. Zestril added to BP medication. 1 dose of Seroquel ordered for agitation. Continue to monitor renal parameters. Continue per consultants. October 02: Lab reviewed. Potassium supplement IV given. 3% saline 250 cc ordered. Responded well to Zaroxolyn yesterday. Will continue to monitor electrolytes and renal parameters. Will increase minoxidil to 2.5 mg every 6 hours. October 01: Labs reviewed. Potassium supplement given. Last dialysis September 29. Serum creatinine rising gradually. Urine output very low. Patient appears to continue to need dialysis at least twice a week. Blood pressure still running high I will switch the hydralazine to minoxidil. We will give 1 dose of Zaroxolyn 10 mg today. Will check renal parameters tomorrow. September 30: Patient dialyzed yesterday. 3 L removed. Labs reviewed. Potassium supplement given. Continue per consultants. It appears that the patient required dialysis 2-3 times a week. September 29: Lab reviewed. Chest x-ray result noted. Continues to have pulmonary congestion. Urine output low. Will attempt dialysis again today with ultrafiltration. September 28: Lab reviewed. ABG reviewed. Potassium supplement given. No dialysis at this point. Will eval patient status and renal parameters daily. September 27: Lab reviewed. Last dialysis September 25. Continue to monitor renal parameters. Hemodialysis as needed. September 26: Lab reviewed. Dialyzed yesterday. Potassium supplement given. Medication list reviewed. Will observe renal parameters and arrange for dialysis as needed. September 25: Lab reviewed. Currently on hemodialysis. Tolerating well. Stable from renal standpoint of view. Blood pressure medication adjusted by increasing hydralazine. September 24: Lab reviewed. ABG reviewed. Both lab and ABG much improved. Patient was dialyzed yesterday. We will attempt dialysis tomorrow again. Will adjust that blood pressure medication dosages. September 23: Lab reviewed. ABG reviewed. Patient acidotic. IV bicarb 1 dose is given. Patient has dialysis catheter. Will order dialysis for ultrafiltration and correction of acid-base. Discussed with ERASMO Mohr. September 22: Labs reviewed. Potassium high. Kayexalate and Reglan given. Will discuss with the consultants regarding initiation of dialysis. September 21: Patient is being sedated. Labs reviewed. Potassium supplement discontinued. GFR 20. Continue per current treatment plan. Dialysis and ultrafiltration is a consideration. September 20: Patient periodically agitated. Labs reviewed. Creatinine 2.4. Medication reviewed. Continue per consultants. Calculated creatinine clearance 21. May need isolated ultrafiltration on dialysis. Will discuss with PMD. Meanwhile hemoglobin is lower, defer transfusion to PMD. September 19: DC IV fluid. Zaroxolyn via GT tube. Potassium supplement. Attempt to diurese. Chest CT as bilateral pleural effusion. If diuresis unsuccessful, will consider dialysis and ultrafiltration. September 18: Potassium supplement IV given. Hemoglobin stable. Patient remains full code. Continue per consultants. Previously: Potassium supplement IV Slow IV hydration Epogen subcu Adjust blood pressure medication IV fluid, rate adjusted Norman catheter, intake and output Monitor renal parameters Avoid nephrotoxic's Antibiotics Per orders 2D echocardiogram Kidney ultrasound Objective Objective Last 24 Hour Vital Signs Date Time Temp Pulse Resp B/P (MAP) Pulse Ox O2 Delivery O2 Flow Rate FiO2 10/08/19 13:00 80 24 149/59 (89) 90 10/08/19 12:34 21 170/74 Mechanical Ventilator 50.0 60 10/08/19 12:34 78 170/74 10/08/19 12:30 84 18 164/61 (95) 93 10/08/19 12:00 60 8/25/20 12:00 78 10/08/19 12:00 77 23 172/65 (100) 99 10/08/19 11:30 79 26 168/59 (95) 96 10/08/19 11:00 85 27 197/74 (115) 96 10/08/19 10:34 98.1 10/08/19 10:32 61 21 100 Mechanical Ventilator 60 58 20 60 10/08/19 10:30 76 27 196/74 (114) 95 10/08/19 10:30 75 30 170/74 (106) 96 10/08/19 10:05 165/69 10/08/19 10:00 61 21 152/59 (90) 98 10/08/19 09:30 61 20 155/65 (95) 97 10/08/19 09:00 71 17 166/76 (106) 96 10/08/19 09:00 57 165/69 10/08/19 08:30 68 21 163/61 (95) 100 10/08/19 08:00 60 10/08/19 08:00 Mechanical Ventilator Mechanical Ventilator 10/08/19 08:00 98.4 57 20 150/61 (90) 100 10/08/19 08:00 76 10/08/19 07:30 59 15 142/62 (88) 100 10/08/19 07:16 57 21 100 Mechanical Ventilator 60 58 20 60 10/08/19 07:00 18 165/69 Mechanical Ventilator 60 10/08/19 07:00 62 18 165/69 (101) 99 10/08/19 06:30 56 20 162/63 (96) 98 10/08/19 06:00 20 153/63 Mechanical Ventilator 60 10/08/19 06:00 54 20 153/63 (93) 98 10/08/19 05:56 54 143/58 10/08/19 05:30 54 20 150/58 (88) 99 10/08/19 05:17 54 20 60 10/08/19 05:00 20 143/58 Mechanical Ventilator 60 10/08/19 05:00 56 20 143/58 (86) 99 10/08/19 04:30 56 20 155/60 (91) 98 10/08/19 04:00 Mechanical Ventilator Mechanical Ventilator 10/08/19 04:00 98.1 55 20 161/64 (96) 98 10/08/19 04:00 20 161/64 Mechanical Ventilator 60 10/08/19 04:00 60 10/08/19 03:30 54 20 152/60 (90) 98 10/08/19 03:28 54 10/08/19 03:20 57 21 60 10/08/19 03:00 22 152/58 Mechanical Ventilator 60 10/08/19 03:00 56 22 152/58 (89) 98 10/08/19 02:30 58 20 139/53 (81) 97 10/08/19 02:00 20 142/94 Mechanical Ventilator 60 10/08/19 02:00 55 20 142/94 (110) 97 10/08/19 01:30 56 21 146/52 (83) 98 10/08/19 01:00 55 20 139/51 (80) 98 10/08/19 01:00 20 132/47 Mechanical Ventilator 60 10/08/19 00:52 58 20 60 10/08/19 00:30 56 22 128/51 (76) 95 10/08/19 00:00 Mechanical Ventilator Mechanical Ventilator 10/08/19 00:00 57 10/08/19 00:00 21 118/48 Mechanical Ventilator 60 10/08/19 00:00 56 126/53 10/08/19 00:00 98.7 57 21 118/48 (71) 95 10/08/19 00:00 60 10/07/19 23:30 58 20 130/51 (77) 95 10/07/19 23:18 57 20 60 10/07/19 23:00 57 23 119/49 (72) 94 10/07/19 23:00 23 119/49 Mechanical Ventilator 60 10/07/19 22:30 60 25 115/53 (73) 97 10/07/19 22:00 59 22 138/52 (80) 97 10/07/19 22:00 22 138/52 Mechanical Ventilator 60 10/07/19 21:30 65 26 147/52 (83) 98 10/07/19 21:00 64 21 138/56 (83) 96 10/07/19 21:00 21 138/56 Mechanical Ventilator 60 10/07/19 20:58 63 20 60 10/07/19 20:57 62 125/51 10/07/19 20:30 73 22 140/51 (80) 97 10/07/19 20:00 69 10/07/19 20:00 25 123/51 Mechanical Ventilator 60 10/07/19 20:00 98.6 69 25 123/51 (75) 99 10/07/19 20:00 60 10/07/19 20:00 Mechanical Ventilator Mechanical Ventilator 10/07/19 19:30 75 24 129/48 (75) 100 10/07/19 19:25 80 28 60 10/07/19 19:00 24 140/61 Mechanical Ventilator 60 10/07/19 19:00 99.0 82 25 140/61 (87) 98 10/07/19 18:45 28 122/57 Mechanical Ventilator 60 10/07/19 18:45 83 28 122/57 (78) 92 10/07/19 18:30 84 29 154/61 (92) 99 10/07/19 18:30 26 168/65 Mechanical Ventilator 60 10/07/19 18:00 84 33 186/75 (112) 100 10/07/19 18:00 29 186/75 Mechanical Ventilator 60 10/07/19 17:30 76 18 196/81 (119) 92 10/07/19 17:05 98 35 60 10/07/19 17:00 71 24 146/56 (86) 10/07/19 17:00 25 146/56 Mechanical Ventilator 60 10/07/19 16:30 67 23 142/56 (84) 97 10/07/19 16:00 62 10/07/19 16:00 98.1 62 20 151/59 (89) 10/07/19 16:00 21 144/53 Mechanical Ventilator 60 10/07/19 16:00 Mechanical Ventilator Mechanical Ventilator 10/07/19 16:00 60 10/07/19 15:30 61 20 145/55 (85) 10/07/19 15:28 20 145/55 Mechanical Ventilator 60 10/07/19 15:28 20 145/55 Mechanical Ventilator 60 10/07/19 15:00 20 145/55 Mechanical Ventilator 60 10/07/19 15:00 61 20 60 10/07/19 15:00 63 20 145/55 (85) 10/07/19 14:30 63 20 135/53 (80) 10/07/19 14:00 59 20 148/57 (87) 10/07/19 14:00 20 148/57 Mechanical Ventilator 60 10/07/19 13:30 58 20 157/58 (91) Intake and Output 10/07/19 10/08/19 19:00 07:00 Intake Total 676.750 ml 1006 ml Output Total 105 ml 3080 ml Balance 571.750 ml -2074 ml IV Total 236.750 ml 276 ml Tube Feeding 440 ml 480 ml Other 250 ml Output Urine Total 105 ml 80 ml Hemodialysis UF 3000 ml # Bowel Movements 2 2 Laboratory Tests 10/08/19 03:15: White Blood Count 12.1#H, Red Blood Count 2.98L, Hemoglobin 9.3L, Hematocrit 28.8L, Mean Corpuscular Volume 97, Mean Corpuscular Hemoglobin 31.1H, Mean Corpuscular Hemoglobin Concent 32.2, Red Cell Distribution Width 14.9H, Platelet Count 419, Mean Platelet Volume 5.9L, Neutrophils (%) (Auto) 83.2H, Lymphocytes (%) (Auto) 11.4L, Monocytes (%) (Auto) 4.3, Eosinophils (%) (Auto) 0.4, Basophils (%) (Auto) 0.8, Sodium Level 134L, Potassium Level 4.0, Chloride Level 101, Carbon Dioxide Level 24, Anion Gap 9, Blood Urea Nitrogen 54H, Creatinine 2.5H, Estimat Glomerular Filtration Rate 20.6, Glucose Level 106, Calcium Level 8.8 Height (Feet): 5 Height (Inches): 5.00 Weight (Pounds): 140 Objective No change Johnny Houston MD Oct 08, 2019 13:23
--- NOTE | 2019-10-08 14:16 | Surgery Progress Note ---
Surgery Progress Note Subjective Additional Comments requiring more sedation uncomfortable labs noted on vent support Objective Last 24 Hour Vital Signs Date Time Temp Pulse Resp B/P (MAP) Pulse Ox O2 Delivery O2 Flow Rate FiO2 10/08/19 14:00 23 154/63 Mechanical Ventilator 60 10/08/19 13:44 75 21 100 Mechanical Ventilator 50 75 25 60 10/08/19 13:30 87 27 190/81 (117) 98 10/08/19 13:00 22 172/71 Mechanical Ventilator 60 10/08/19 13:00 80 24 149/59 (89) 90 10/08/19 12:34 21 170/74 Mechanical Ventilator 50.0 60 10/08/19 12:34 78 170/74 10/08/19 12:33 22 149/59 Mechanical Ventilator 60 10/08/19 12:30 84 18 164/61 (95) 93 10/08/19 12:00 60 10/08/19 12:00 78 10/08/19 12:00 77 23 172/65 (100) 99 10/08/19 12:00 Mechanical Ventilator Mechanical Ventilator 10/08/19 11:30 79 26 168/59 (95) 96 10/08/19 11:00 29 168/59 Mechanical Ventilator 60 10/08/19 11:00 85 27 197/74 (115) 96 10/08/19 10:34 98.1 10/08/19 10:32 61 21 60 10/08/19 10:30 76 27 196/74 (114) 95 10/08/19 10:30 75 30 170/74 (106) 96 10/08/19 10:05 165/69 10/08/19 10:00 21 158/62 Mechanical Ventilator 60 10/08/19 10:00 61 21 152/59 (90) 98 10/08/19 09:30 61 20 155/65 (95) 97 10/08/19 09:00 71 17 166/76 (106) 96 10/08/19 09:00 20 167/64 Mechanical Ventilator 60 10/08/19 09:00 57 165/69 10/08/19 08:30 68 21 163/61 (95) 100 10/08/19 08:00 60 10/08/19 08:00 20 194/63 Mechanical Ventilator 60 10/08/19 08:00 Mechanical Ventilator Mechanical Ventilator 10/08/19 08:00 98.4 57 20 150/61 (90) 100 10/08/19 08:00 76 10/08/19 07:30 59 15 142/62 (88) 100 10/08/19 07:16 57 21 100 Mechanical Ventilator 60 58 20 60 10/08/19 07:00 18 165/69 Mechanical Ventilator 60 10/08/19 07:00 62 18 165/69 (101) 99 10/08/19 06:30 56 20 162/63 (96) 98 10/08/19 06:00 20 153/63 Mechanical Ventilator 60 10/08/19 06:00 54 20 153/63 (93) 98 10/08/19 05:56 54 143/58 10/08/19 05:30 54 20 150/58 (88) 99 10/08/19 05:17 54 20 60 10/08/19 05:00 20 143/58 Mechanical Ventilator 60 10/08/19 05:00 56 20 143/58 (86) 99 10/08/19 04:30 56 20 155/60 (91) 98 10/08/19 04:00 Mechanical Ventilator Mechanical Ventilator 10/08/19 04:00 98.1 55 20 161/64 (96) 98 10/08/19 04:00 20 161/64 Mechanical Ventilator 60 10/08/19 04:00 60 10/08/19 03:30 54 20 152/60 (90) 98 10/08/19 03:28 54 10/08/19 03:20 57 21 60 10/08/19 03:00 22 152/58 Mechanical Ventilator 60 10/08/19 03:00 56 22 152/58 (89) 98 10/08/19 02:30 58 20 139/53 (81) 97 10/08/19 02:00 20 142/94 Mechanical Ventilator 60 10/08/19 02:00 55 20 142/94 (110) 97 10/08/19 01:30 56 21 146/52 (83) 98 10/08/19 01:00 55 20 139/51 (80) 98 10/08/19 01:00 20 132/47 Mechanical Ventilator 60 10/08/19 00:52 58 20 60 10/08/19 00:30 56 22 128/51 (76) 95 10/08/19 00:00 Mechanical Ventilator Mechanical Ventilator 10/08/19 00:00 57 10/08/19 00:00 21 118/48 Mechanical Ventilator 60 10/08/19 00:00 56 126/53 10/08/19 00:00 98.7 57 21 118/48 (71) 95 10/08/19 00:00 60 10/07/19 23:30 58 20 130/51 (77) 95 10/07/19 23:18 57 20 60 10/07/19 23:00 57 23 119/49 (72) 94 10/07/19 23:00 23 119/49 Mechanical Ventilator 60 10/07/19 22:30 60 25 115/53 (73) 97 10/07/19 22:00 59 22 138/52 (80) 97 10/07/19 22:00 22 138/52 Mechanical Ventilator 60 10/07/19 21:30 65 26 147/52 (83) 98 10/07/19 21:00 64 21 138/56 (83) 96 10/07/19 21:00 21 138/56 Mechanical Ventilator 60 10/07/19 20:58 63 20 60 10/07/19 20:57 62 125/51 10/07/19 20:30 73 22 140/51 (80) 97 10/07/19 20:00 69 10/07/19 20:00 25 123/51 Mechanical Ventilator 60 10/07/19 20:00 98.6 69 25 123/51 (75) 99 10/07/19 20:00 60 10/07/19 20:00 Mechanical Ventilator Mechanical Ventilator 10/07/19 19:30 75 24 129/48 (75) 100 10/07/19 19:25 80 28 60 10/07/19 19:00 24 140/61 Mechanical Ventilator 60 10/07/19 19:00 99.0 82 25 140/61 (87) 98 10/07/19 18:45 28 122/57 Mechanical Ventilator 60 10/07/19 18:45 83 28 122/57 (78) 92 10/07/19 18:30 84 29 154/61 (92) 99 10/07/19 18:30 26 168/65 Mechanical Ventilator 60 10/07/19 18:00 84 33 186/75 (112) 100 10/07/19 18:00 29 186/75 Mechanical Ventilator 60 10/07/19 17:30 76 18 196/81 (119) 92 10/07/19 17:05 98 35 60 10/07/19 17:00 71 24 146/56 (86) 10/07/19 17:00 25 146/56 Mechanical Ventilator 60 10/07/19 16:30 67 23 142/56 (84) 97 10/07/19 16:00 62 10/07/19 16:00 98.1 62 20 151/59 (89) 10/07/19 16:00 21 144/53 Mechanical Ventilator 60 10/07/19 16:00 Mechanical Ventilator Mechanical Ventilator 10/07/19 16:00 60 10/07/19 15:30 61 20 145/55 (85) 10/07/19 15:28 20 145/55 Mechanical Ventilator 60 10/07/19 15:28 20 145/55 Mechanical Ventilator 60 10/07/19 15:00 20 145/55 Mechanical Ventilator 60 10/07/19 15:00 61 20 60 10/07/19 15:00 63 20 145/55 (85) 10/07/19 14:30 63 20 135/53 (80) I&O Intake and Output 10/07/19 10/08/19 19:00 07:00 Intake Total 676.750 ml 1006 ml Output Total 105 ml 3080 ml Balance 571.750 ml -2074 ml IV Total 236.750 ml 276 ml Tube Feeding 440 ml 480 ml Other 250 ml Output Urine Total 105 ml 80 ml Hemodialysis UF 3000 ml # Bowel Movements 2 2 Dressing: saturated Cardiovascular: RSR Respiratory: decreased breath sounds Abdomen: soft, non-tender, present bowel sounds Extremities: edema, no tenderness, no cyanosis Laboratory Tests Test 10/08/19 03:15 White Blood Count 12.1 K/UL (4.8-10.8) #H Red Blood Count 2.98 M/UL (4.20-5.40) L Hemoglobin 9.3 G/DL (12.0-16.0) L Hematocrit 28.8 % (37.0-47.0) L Mean Corpuscular Volume 97 FL (80-99) Mean Corpuscular Hemoglobin 31.1 PG (27.0-31.0) H Mean Corpuscular Hemoglobin Concent 32.2 G/DL (32.0-36.0) Red Cell Distribution Width 14.9 % (11.6-14.8) H Platelet Count 419 K/UL (150-450) Mean Platelet Volume 5.9 FL (6.5-10.1) L Neutrophils (%) (Auto) 83.2 % (45.0-75.0) H Lymphocytes (%) (Auto) 11.4 % (20.0-45.0) L Monocytes (%) (Auto) 4.3 % (1.0-10.0) Eosinophils (%) (Auto) 0.4 % (0.0-3.0) Basophils (%) (Auto) 0.8 % (0.0-2.0) Sodium Level 134 MMOL/L (136-145) L Potassium Level 4.0 MMOL/L (3.5-5.1) Chloride Level 101 MMOL/L (98-107) Carbon Dioxide Level 24 MMOL/L (21-32) Anion Gap 9 mmol/L (5-15) Blood Urea Nitrogen 54 mg/dL (7-18) H Creatinine 2.5 MG/DL (0.55-1.30) H Estimat Glomerular Filtration Rate 20.6 mL/min (>60) Glucose Level 106 MG/DL (74-106) Calcium Level 8.8 MG/DL (8.5-10.1) Plan Problems: (1) Anemia (2) Proteinuria (3) UTI (urinary tract infection) (4) ARF (acute renal failure) (5) ACS (acute coronary syndrome) (6) Respiratory failure, acute and chronic (7) HCAP (healthcare-associated pneumonia) (8) Abrasion of lip, initial encounter (9) COPD with exacerbation (10) Hypokalemia (11) Sepsis Assessment & Plan: Leukocytosis, anemia, abnormal labs. Renal insufficiency potentially dehydrated Abnormal LFTs alk phos elevated Urine noted significant bacteria likely UTI etiology Wound stable still requiring local care IV antibiotics per infectious disease Discussed with litigation support analyst Dr. Berkowitz air mattress turn q2h nutritional tf will follow with recs thank you CT noted pending VQ scan - noted poor study low prob PE work respiratory increasing needs sedation weaning vent settings 80% peep 10 now comfortable Hd line in receiving HD plan for left thora 09/26 (12) Chronic respiratory failure (13) Ascites (14) Bacteremia (15) Hypernatremia (16) Pleural effusion (17) Pacemaker (18) Aortic dissection, thoracic (19) Tracheostomy in place Assessment & Plan: trach stable no bleeding currently likely tongue etiology of mild oozing currently hemostatic without trauma (20) Feeding by G-tube Assessment & Plan: okay to resume tube feeds via g tube patent and functional dressings okay DAILY ESTIMATED NEEDS: Needs based on Pulmonary, wound 49kg 30-35 kcals/kg [id number] total kcals 1.25-2 g protein/kg 61-98 g total protein Fluid per MD NUTRITION DIAGNOSIS: * Swallowing difficulty R/T dysphagia, respiratory status as evidenced by vent dep via T-collar, GT Dep. (CURRENT TF: Nepro @45ml/hr x 24 hrs) ENTERAL NUTRITION RECOMMENDATIONS: Nepro @ 40ml/hr x 24 hrs to provide 960ml, 1728kcal, 78g prot, 698ml free water * Rec LOWER current rate to 40ml/hr for 24 hrs run. * Water flush of 100ml q 6 hrs per orders * HOB over 30 degrees ADDITIONAL RECOMMENDATIONS: * Per SNF: HT=63", MY=451lsy -> rec calibrated bedscale wt * Pt on Nepro [employer] ENGINE[employer]ING [employer], possible h/o electrolyte imbalance -> monitor lytes closely (K low at this time) * MANAGER [employer] eval for oral grat if appropriate * F/up w/ WC eval-> add FRANKLIN in 4oz H20 BID via GT (21) JAVIER (acute kidney injury) (22) Elevated alkaline phosphatase level Assessment & Plan: noted on labs trend US ordered will follow with recs thank you (23) Acute encephalopathy (24) GT CLOGGED (25) Sacral decubitus ulcer, stage IV Assessment & Plan: Pt presented on admission with Full thickness stage 4 Sacral Pressure injury which extends into R gluteal cheek. Base of wound is granular with bone exposure at base of sacrococcygeal.(L)10.5cm x (W06.5cm x (D) 2.8cm , undermining 11-3 by 3.6cm @12 o'clock. small amt serosanguineous exudate noted . Universal epithelial along edges bordered by darker skin tone without erythema. Resolving Pressure injury L ischium. Base of wound is 95% pink epithelial ,5% noni at center base of wound. No exudate noted. Both heels are boggy with non-Blanching erythema. Tx.plan: Cleanse Sacral wound with Saline. Loosely pack with Hydrogel impregnated Kerlix. Apply Moisture Barrier Periwound. Cover with Optifoam drsg Daily and prn. Apply Moisture Barrier paste to L Ischium. Cover with Optifoam drsg. Changee very 3 days and prn. Apply Cavilon Skin Barrier to both heels. Cover each heel with Optifoam drsgs. Change every 7 days and prn. Reposition at least every 2hours or as tolerated. Off-load heels with pillow. APM/JENNIFER Mattress overlay. Lane Saavedra Oct 08, 2019 14:16
[2019-10-08 19:05] LABS: APPEARANCE,URINE VERY CLOUDY; COLOR,URINE YELLOW
[2019-10-08 19:06] LABS: BILIRUBIN, URINE NEGATIVE (NEGATIVE); GLUCOSE, URINE (UA) NEGATIVE (NEGATIVE); KETONES,URINE NEGATIVE (NEGATIVE); LEUKOCYTE ESTERASE ,URINE 4+ (NEGATIVE); NITRITE,URINE NEGATIVE (NEGATIVE); PROTEIN,URINE 4+ (NEGATIVE); UROBILINOGEN,URINE NORMAL MG/DL (0.0-1.0)
--- NOTE | 2019-10-08 20:10 | Pulmonology Progress Note ---
Subjective ROS Limited/Unobtainable: No Constitutional: Reports: fatigue HEENT: Denies: no symptoms, visual change, discharge, earache, hearing change, coryza, congestion, post-nasal drip, dysphagia, other Respiratory: Reports: no symptoms Cardiovascular: Denies: no symptoms, chest pain, palpitations, other Neurologic: Reports: no symptoms, headache, numbness, weakness, confusion, syncope, seizures, other Psychiatric: Reports: no symptoms, depression, anxiety, other Skin: Denies: no symptoms, rash, ulcer, other Allergies: Coded Allergies: No Known Allergies (Unverified , 10/10/17) All Systems: reviewed and negative except above Objective Last 24 Hour Vital Signs Date Time Temp Pulse Resp B/P (MAP) Pulse Ox O2 Delivery O2 Flow Rate FiO2 10/08/19 20:00 Mechanical Ventilator Mechanical Ventilator 10/08/19 20:00 45 10/08/19 19:30 55 21 127/56 (79) 97 10/08/19 19:00 98.4 57 26 141/60 (87) 99 10/08/19 19:00 16 127/56 Mechanical Ventilator 45 10/08/19 18:48 56 20 99 Mechanical Ventilator 60.0 45 54 20 45 10/08/19 18:47 131/60 10/08/19 18:31 57 19 131/60 (83) 97 10/08/19 18:00 18 126/56 Mechanical Ventilator 45 10/08/19 18:00 55 120/54 10/08/19 18:00 55 20 122/54 (76) 97 10/08/19 17:30 55 21 119/56 (77) 97 10/08/19 17:00 56 22 117/51 (73) 97 10/08/19 17:00 18 126/56 Mechanical Ventilator 45 10/08/19 16:30 60 20 122/52 (75) 95 10/08/19 16:00 50 10/08/19 16:00 63 23 119/50 (73) 95 10/08/19 16:00 Mechanical Ventilator Mechanical Ventilator 10/08/19 16:00 16 129/73 Mechanical Ventilator 50 10/08/19 16:00 60 10/08/19 15:30 64 22 143/56 (85) 95 10/08/19 15:29 63 20 1 45 10/08/19 15:00 68 24 135/57 (83) 96 10/08/19 15:00 20 130/80 Mechanical Ventilator 50 10/08/19 14:30 66 18 137/55 (82) 96 10/08/19 14:00 69 23 150/62 (91) 99 10/08/19 14:00 23 154/63 Mechanical Ventilator 60 10/08/19 13:44 75 21 100 Mechanical Ventilator 50 75 25 60 10/08/19 13:30 87 27 190/81 (117) 98 10/08/19 13:00 22 172/71 Mechanical Ventilator 60 10/08/19 13:00 80 24 149/59 (89) 90 10/08/19 12:34 21 170/74 Mechanical Ventilator 50.0 60 10/08/19 12:34 78 170/74 10/08/19 12:33 22 149/59 Mechanical Ventilator 60 10/08/19 12:30 84 18 164/61 (95) 93 10/08/19 12:00 60 10/08/19 12:00 78 10/08/19 12:00 77 23 172/65 (100) 99 10/08/19 12:00 Mechanical Ventilator Mechanical Ventilator 10/08/19 11:30 79 26 168/59 (95) 96 10/08/19 11:00 29 168/59 Mechanical Ventilator 60 10/08/19 11:00 85 27 197/74 (115) 96 10/08/19 10:34 98.1 10/08/19 10:32 61 21 60 10/08/19 10:30 76 27 196/74 (114) 95 10/08/19 10:30 75 30 170/74 (106) 96 10/08/19 10:05 165/69 10/08/19 10:00 21 158/62 Mechanical Ventilator 60 10/08/19 10:00 61 21 152/59 (90) 98 10/08/19 09:30 61 20 155/65 (95) 97 10/08/19 09:00 71 17 166/76 (106) 96 10/08/19 09:00 20 167/64 Mechanical Ventilator 60 10/08/19 09:00 57 165/69 10/08/19 08:30 68 21 163/61 (95) 100 10/08/19 08:00 60 10/08/19 08:00 20 194/63 Mechanical Ventilator 60 10/08/19 08:00 Mechanical Ventilator Mechanical Ventilator 10/08/19 08:00 98.4 57 20 150/61 (90) 100 10/08/19 08:00 76 10/08/19 07:30 59 15 142/62 (88) 100 10/08/19 07:16 57 21 100 Mechanical Ventilator 60 58 20 60 10/08/19 07:00 18 165/69 Mechanical Ventilator 60 10/08/19 07:00 62 18 165/69 (101) 99 10/08/19 06:30 56 20 162/63 (96) 98 10/08/19 06:00 20 153/63 Mechanical Ventilator 60 10/08/19 06:00 54 20 153/63 (93) 98 10/08/19 05:56 54 143/58 10/08/19 05:30 54 20 150/58 (88) 99 10/08/19 05:17 54 20 60 10/08/19 05:00 20 143/58 Mechanical Ventilator 60 10/08/19 05:00 56 20 143/58 (86) 99 10/08/19 04:30 56 20 155/60 (91) 98 10/08/19 04:00 Mechanical Ventilator Mechanical Ventilator 10/08/19 04:00 98.1 55 20 161/64 (96) 98 10/08/19 04:00 20 161/64 Mechanical Ventilator 60 10/08/19 04:00 60 10/08/19 03:30 54 20 152/60 (90) 98 10/08/19 03:28 54 10/08/19 03:20 57 21 60 10/08/19 03:00 22 152/58 Mechanical Ventilator 60 10/08/19 03:00 56 22 152/58 (89) 98 10/08/19 02:30 58 20 139/53 (81) 97 10/08/19 02:00 20 142/94 Mechanical Ventilator 60 10/08/19 02:00 55 20 142/94 (110) 97 10/08/19 01:30 56 21 146/52 (83) 98 10/08/19 01:00 55 20 139/51 (80) 98 10/08/19 01:00 20 132/47 Mechanical Ventilator 60 10/08/19 00:52 58 20 60 10/08/19 00:30 56 22 128/51 (76) 95 10/08/19 00:00 Mechanical Ventilator Mechanical Ventilator 10/08/19 00:00 57 10/08/19 00:00 21 118/48 Mechanical Ventilator 60 10/08/19 00:00 56 126/53 10/08/19 00:00 98.7 57 21 118/48 (71) 95 10/08/19 00:00 60 10/07/19 23:30 58 20 130/51 (77) 95 10/07/19 23:18 57 20 60 10/07/19 23:00 57 23 119/49 (72) 94 10/07/19 23:00 23 119/49 Mechanical Ventilator 60 10/07/19 22:30 60 25 115/53 (73) 97 10/07/19 22:00 59 22 138/52 (80) 97 10/07/19 22:00 22 138/52 Mechanical Ventilator 60 10/07/19 21:30 65 26 147/52 (83) 98 10/07/19 21:00 64 21 138/56 (83) 96 10/07/19 21:00 21 138/56 Mechanical Ventilator 60 10/07/19 20:58 63 20 60 10/07/19 20:57 62 125/51 10/07/19 20:30 73 22 140/51 (80) 97 Intake and Output 10/07/19 10/08/19 19:00 07:00 Intake Total 676.750 ml 1006 ml Output Total 105 ml 3080 ml Balance 571.750 ml -2074 ml IV Total 236.750 ml 276 ml Tube Feeding 440 ml 480 ml Other 250 ml Output Urine Total 105 ml 80 ml Hemodialysis UF 3000 ml # Bowel Movements 2 2 HEENT: normocephalic, atraumatic, supple, no JVD Respiratory: lungs clear, normal breath sounds Cardiovascular: normal rate, regular rhythm, no JVD Abdomen: normal bowel sounds, soft, non tender, no mass Extremities: no cyanosis, no clubbing, no edema Laboratory Tests 10/08/19 03:15: White Blood Count 12.1#H, Red Blood Count 2.98L, Hemoglobin 9.3L, Hematocrit 28.8L, Mean Corpuscular Volume 97, Mean Corpuscular Hemoglobin 31.1H, Mean Corpuscular Hemoglobin Concent 32.2, Red Cell Distribution Width 14.9H, Platelet Count 419, Mean Platelet Volume 5.9L, Neutrophils (%) (Auto) 83.2H, Lymphocytes (%) (Auto) 11.4L, Monocytes (%) (Auto) 4.3, Eosinophils (%) (Auto) 0.4, Basophils (%) (Auto) 0.8, Sodium Level 134L, Potassium Level 4.0, Chloride Level 101, Carbon Dioxide Level 24, Anion Gap 9, Blood Urea Nitrogen 54H, Creatinine 2.5H, Estimat Glomerular Filtration Rate 20.6, Glucose Level 106, Calcium Level 8.8 10/08/19 16:40: Urine Color Yellow, Urine Appearance Very cloudy, Urine pH 6.0, Urine Specific [place] 1.015, Urine Protein 4+H, Urine Glucose (UA) Negative, Urine Ketones Negative, Urine Blood 4+H, Urine Nitrite Negative, Urine Bilirubin Negative, Urine Urobilinogen Normal, Urine Leukocyte Esterase 4+H, Urine RBC 60-80H, Urine WBC TntcH, Urine Squamous Epithelial Cells ModerateH, Urine Bacteria ManyH , Urine Yeast FewH Current Medications Medications (Trade) Dose Ordered Sig/Penny Route PRN Reason Start Time Stop Time Status Last Admin Dose Admin Acetaminophen (Tylenol) 325 mg Q6H PRN GT Temp >100.5 09/23/19 10:45 10/23/19 10:44 09/23/19 18:55 Albuterol/ Ipratropium (Albuterol/ Ipratropium) 3 ml Q6HRT HHN 10/04/19 13:00 10/09/19 12:59 10/08/19 19:49 Ascorbic Acid (Vitamin C) 500 mg DAILY ORAL 10/06/19 09:00 11/05/19 08:59 10/08/19 10:05 Chlorhexidine Gluconate (Ling-Hex 2%) 1 applic DAILY@2000 TOPIC 09/23/19 20:00 12/22/19 19:59 10/07/19 19:32 Dextrose (Dextrose 50%) 25 ml Q30M PRN IV Hypoglycemia 10/05/19 18:30 01/03/20 18:29 Dextrose (Dextrose 50%) 50 ml Q30M PRN IV Hypoglycemia 10/05/19 18:30 01/03/20 18:29 Diltiazem HCl (Cardizem Tab) 60 mg Q6HR GT 10/04/19 18:00 11/03/19 17:59 10/08/19 12:34 Docusate Sodium (Colace) 100 mg Q8H GT 09/29/19 08:30 10/29/19 08:29 10/07/19 17:06 Epoetin Gelacio (Epoetin Gelacio(ESRD on dialysis)) 10,000 unit SUBQ 09/25/19 21:00 12/24/19 20:59 10/07/19 20:57 Fentanyl Citrate 250 ml @ 0 mls/hr Q24H IV 10/07/19 15:00 10/09/19 12:29 10/08/19 12:34 Haloperidol Lactate (Haldol) 5 mg Q6H PRN IM Agitation 10/08/19 11:00 11/22/19 10:59 10/08/19 12:34 Heparin Sodium (Porcine) (Heparin 5000 units/ml) 5,000 units EVERY 12 HOURS SUBQ 09/17/19 21:00 10/30/19 08:59 10/08/19 10:06 Hydralazine HCl (Apresoline) 10 mg Q4H PRN IV BP over 160 systolic 09/17/19 11:15 12/14/19 11:14 10/04/19 09:04 Insulin Aspart (NovoLOG) Q6HR SUBQ 10/06/19 00:00 01/03/20 20:59 Lactulose (Cephulac) 10 gm THREE TIMES A DAY ORAL 10/03/19 13:00 11/02/19 12:59 10/07/19 17:06 Lansoprazole (Prevacid) 30 mg Q12HR GT 09/27/19 21:00 10/27/19 20:59 10/08/19 10:05 Lisinopril (ZestriL) 10 mg BID GT 10/06/19 18:00 11/03/19 13:29 10/08/19 18:47 Metoclopramide HCl (Reglan) 10 mg Q8H IVP 09/29/19 14:00 10/29/19 13:59 10/08/19 05:34 Metoprolol Tartrate (Lopressor) 50 mg EVERY 12 HOURS GT 10/04/19 21:00 12/14/19 20:59 10/07/19 20:57 Midazolam HCl (Versed 2mg/2ml vial) 1 mg Q4H PRN IVP For Anxiety 09/21/19 09:30 10/14/19 09:29 10/08/19 10:05 Minoxidil (Loniten) 2.5 mg Q6HR PRN GT BP OVER 170 SYST 10/05/19 08:30 12/31/19 13:59 Polyethylene Glycol (Miralax) 17 gm BEDTIME ORAL 10/01/19 21:00 10/31/19 20:59 10/07/19 20:57 Risperidone (RisperDAL) 2 mg BEDTIME ORAL 10/05/19 21:00 11/19/19 20:59 10/07/19 20:58 Sertraline HCl (Zoloft) 100 mg BEDTIME GT 09/17/19 21:00 10/15/19 20:59 10/07/19 20:58 Sorbitol (sorbitoL) 30 ml EVERY 6 HOURS PRN GT Constipation 09/29/19 18:00 10/29/19 17:59 10/01/19 00:44 Tramadol HCl (Ultram) 25 mg Q6H GT 10/07/19 11:00 10/14/19 10:59 10/08/19 18:46 Vitamin B Complex/ Vit C/Folic Acid (Nephrovite) 1 tab DAILY ORAL 10/06/19 09:00 11/05/19 08:59 10/08/19 10:05 Zinc Sulfate (Zinc Sulfate) 220 mg DAILY ORAL 10/06/19 09:00 10/16/19 08:59 10/08/19 10:05 Lucas Dong MD Oct 08, 2019 20:10
[2019-10-08] MEDS: Miralax 17gm pkt ORAL SCH (21:00)
[2019-10-08] MEDS: Dyna-Hex 2% Top Sol 2oz TOPIC SCH (21:11)
[2019-10-08] MEDS: Sertraline 100mg tab GT SCH (21:11)
[2019-10-09] VITALS (76 sets, daily range): BP systolic 116–196; BP diastolic 51–87
[2019-10-09] MEDS: Albuterol/Ipratropium 3ml neb HHN SCH ×4 (01:01→19:11)
[2019-10-09] MEDS: fentaNYL 2500mcg/NS 250ml 250 ML IV SCH ×2 (01:01→12:30)
[2019-10-09] MEDS: traMADol 50mg tab GT SCH ×3 (05:15→16:51)
[2019-10-09] MEDS: dilTIAZem HCl 60mg tab GT SCH ×3 (05:15→16:51)
[2019-10-09] MEDS: Metoclopramide 10mg/2ml Inj IVP SCH (05:16)
[2019-10-09 05:44] LABS: BASOPHILS % (AUTO) 1.3 % (0.0-2.0); EOSINOPHILS % (AUTO) 0.4 % (0.0-3.0); HEMOGLOBIN 10.3 G/DL (12.0-16.0); LYMPHOCYTES % (AUTO) 17.2 % (20.0-45.0); MEAN CORPUSCULAR VOLUME 95 FL (80-99); MONOCYTES % (AUTO) 5.7 % (1.0-10.0); NEUTROPHILS % (AUTO) 75.5 % (45.0-75.0); PLATELET COUNT 432 K/UL (150-450); RED BLOOD COUNT 3.36 M/UL (4.20-5.40); RED CELL DISTRIBUTION WIDTH 14.1 % (11.6-14.8); WHITE BLOOD COUNT 6.7 K/UL (4.8-10.8)
[2019-10-09] MEDS: NovoLOG Insulin Flexpen SUBQ SCH ×3 (05:46→17:46)
[2019-10-09 06:02] LABS: ALANINE AMINOTRANSFERASE 8 U/L (12-78); ALBUMIN 1.6 G/DL (3.4-5.0); ALBUMIN/GLOBULIN RATIO 0.3 (1.0-2.7); ALKALINE PHOSPHATASE 167 U/L (46-116); ANION GAP 12 mmol/L (5-15); ASPARTATE AMINO TRANSFERASE 25 U/L (15-37); BILIRUBIN,TOTAL 0.4 MG/DL (0.2-1.0); BLOOD UREA NITROGEN 68 mg/dL (7-18); CARBON DIOXIDE 23 MMOL/L (21-32); CHLORIDE 99 MMOL/L (98-107); CREATININE 2.9 MG/DL (0.55-1.30); POTASSIUM 4.2 MMOL/L (3.5-5.1); SODIUM 134 MMOL/L (136-145)
--- NOTE | 2019-10-09 07:47 | Hematology/Onc Progress Note ---
Assessment/Plan Assessment/Plan Assessment and Recs # Leukocytosis, now with gram positive bacteremias well as pna noted --> historically --> PPM site (pocket) infection (redness and pain, bacteremia) and likely pocket abscess - no vegetation seen on ABBIE --> is s'p pm removal and also pocket infection is better --> per cards recs in re to tach/davis --> wbc 15-->19-->17-->15-->13->12-->13-->12>13-->18-->9-->7 --> ABX cefepime/levaquin--> vanc/angelo --> ID recs are noted # Anemia of chronic disease due to underlying chronic medical issues, multifactorial --> Anemia workup has been reviewed, cw acd --> No evidence of hemolysis is noted, peripheral smear has been reviewed. --> Hgb goal >7. Transfuse prn. --> Epogen started --> Medications have been reviewed --> low threshold for gi evaluation in case has occult + --> hgb 7.1-->7.8-->8.9->9.2-->8.5-->9.7-->10-->8.8-->9.6-->8.7->8.6-->7.2->8.7- >9.1-->9.2-->9-->8.7-->9.3 --> 1 unit prbc 09/27 # Thrombocytois is likely reactive process, is s/p infection --> plt trend 610k-->706k-->354 --> p smear reviewed # Acute hypoxic respiratory failure s/p intubation 11/23- ?ARDS --> on vent/trach # Gram positive bacteremia- real bacteremia- 2ry to above and probable PNA --> per id care # JAVIER initially >2 --> now improved with D5w # Dysphagia s/p peg # Thoracic aortic dissection s/p repair early 2017 # Psychiatric history on ativan/haldol # [place] # Dvt ppx heparin sq The timing of this note does not necessarily reflect the time of the patient was seen. Greatly appreciate consultation. Subjective HEENT: Denies: no symptoms, eye pain, blurred vision, tearing, double vision, ear pain, ear discharge, nose pain, nose congestion, throat pain, throat swelling, mouth pain, mouth swelling, other Cardiovascular: Denies: no symptoms, chest pain, edema, irregular heart rate, lightheadedness, palpitations, syncope, other Respiratory: Denies: no symptoms, cough, shortness of breath, SOB with excertion, SOB at rest, sputum, wheezing, other Gastrointestinal/Abdominal: Denies: no symptoms, abdomen distended, abdominal pain, black stools, tarry stools, blood in stool, constipated, diarrhea, difficulty swallowing, nausea, poor appetite, poor fluid intake, rectal bleeding , vomiting, other Genitourinary: Denies: no symptoms, burning, discharge, frequency, flank pain, hematuria, incontinence, pain, urgency, other Endocrine: Denies: no symptoms, excessive sweating, flushing, intolerance to cold, intolerance to heat, increased hunger, increased thirst, increased urine, unexplained weight gain, unexplained weight loss, other Allergies: Coded Allergies: No Known Allergies (Unverified , 10/10/17) Subjective 09/16 on vent now, consulted in am pulm, on vent setting, labs noted, hep sq 09/17 meds noted, cbc noted, labs noted, no bleeding 09/18 is to undergo potential v/q scan given abg, labs noted, resless, on ativan, to get haldol today, roman ramesh 09/19 remains agitated, covering, with sacral wound seeping, likely cause of anemia, roman rn 09/26 restless, remains agitated, gtube ripped, eval with rn, and ifeoma consulted 09/27 remains on vent, agitated, seen by gi, hgb low, roman George to transfuse 1 unit prbc 09/28 meds noted, no bleeding, on vent, s/p blood tranfusion, cbc pending, roman ramesh 09/29 remains in the icu, roman rn in the am, agitated, on versed, fentanyl, restraints 09/30 in icu, trach to vent, on gtube feeds, fentanyl, agitated 10/01 in icu, roman Ayoub rn, no bleeding, sleeping, labs noted, hgb >9 10/02 sedated in icu, is on vent, roman rn, more alert and more conversive with face grimaces 10/03 labs have been reviewed, no bleeding, icu, meds reviewed, on fentanyl and versed, to consult psych 10/05 remains on fentanyl, also with restraints, no bleeding, cbc ordered 10/06 remains obtunded, though reactive when proded, labs pending from am 10/07 hypertensive, asleep, no bleeding, roman rn, no major night sweats\ 10/08 formula leaking from gtube site, no bleeding, with some minor residual Objective Objective Current Medications Medications (Trade) Dose Ordered Sig/Penny Route PRN Reason Start Time Stop Time Status Last Admin Dose Admin Acetaminophen (Tylenol) 325 mg Q6H PRN GT Temp >100.5 09/23/19 10:45 10/23/19 10:44 09/23/19 18:55 Albuterol/ Ipratropium (Albuterol/ Ipratropium) 3 ml Q6HRT HHN 10/04/19 13:00 10/09/19 12:59 10/09/19 07:33 Ascorbic Acid (Vitamin C) 500 mg DAILY ORAL 10/06/19 09:00 11/05/19 08:59 10/08/19 10:05 Chlorhexidine Gluconate (Ling-Hex 2%) 1 applic DAILY@2000 TOPIC 09/23/19 20:00 12/22/19 19:59 10/08/19 21:11 Dextrose (Dextrose 50%) 25 ml Q30M PRN IV Hypoglycemia 10/05/19 18:30 01/03/20 18:29 Dextrose (Dextrose 50%) 50 ml Q30M PRN IV Hypoglycemia 10/05/19 18:30 01/03/20 18:29 Diltiazem HCl (Cardizem Tab) 60 mg Q6HR GT 10/04/19 18:00 11/03/19 17:59 10/08/19 12:34 Docusate Sodium (Colace) 100 mg Q8H GT 09/29/19 08:30 10/29/19 08:29 10/07/19 17:06 Epoetin Gelacio (Epoetin Gelacio(ESRD on dialysis)) 10,000 unit MON-WED-MON SUBQ 09/25/19 21:00 12/24/19 20:59 10/07/19 20:57 Fentanyl Citrate 250 ml @ 0 mls/hr Q24H IV 10/07/19 15:00 10/09/19 12:29 10/09/19 01:01 Haloperidol Lactate (Haldol) 5 mg Q6H PRN IM Agitation 10/08/19 11:00 11/22/19 10:59 10/08/19 12:34 Heparin Sodium (Porcine) (Heparin 5000 units/ml) 5,000 units EVERY 12 HOURS SUBQ 09/17/19 21:00 10/30/19 08:59 10/08/19 21:12 Hydralazine HCl (Apresoline) 10 mg Q4H PRN IV BP over 160 systolic 09/17/19 11:15 12/14/19 11:14 10/04/19 09:04 Insulin Aspart (NovoLOG) Q6HR SUBQ 10/06/19 00:00 01/03/20 20:59 Lactulose (Cephulac) 10 gm THREE TIMES A DAY ORAL 10/03/19 13:00 11/02/19 12:59 10/07/19 17:06 Lansoprazole (Prevacid) 30 mg Q12HR GT 09/27/19 21:00 10/27/19 20:59 10/08/19 21:11 Lisinopril (ZestriL) 10 mg BID GT 10/06/19 18:00 11/03/19 13:29 10/08/19 18:47 Metoclopramide HCl (Reglan) 10 mg Q8H IVP 09/29/19 14:00 10/29/19 13:59 10/09/19 05:16 Metoprolol Tartrate (Lopressor) 50 mg EVERY 12 HOURS GT 10/04/19 21:00 12/14/19 20:59 10/07/19 20:57 Midazolam HCl (Versed 2mg/2ml vial) 1 mg Q4H PRN IVP For Anxiety 09/21/19 09:30 10/14/19 09:29 10/08/19 10:05 Minoxidil (Loniten) 2.5 mg Q6HR PRN GT BP OVER 170 SYST 10/05/19 08:30 12/31/19 13:59 Polyethylene Glycol (Miralax) 17 gm BEDTIME ORAL 10/01/19 21:00 9/17/20 20:59 10/07/19 20:57 Risperidone (RisperDAL) 2 mg BEDTIME ORAL 10/05/19 21:00 11/19/19 20:59 10/08/19 21:11 Sertraline HCl (Zoloft) 100 mg BEDTIME GT 09/17/19 21:00 10/15/19 20:59 10/08/19 21:11 Sorbitol (sorbitoL) 30 ml EVERY 6 HOURS PRN GT Constipation 09/29/19 18:00 10/29/19 17:59 10/01/19 00:44 Tramadol HCl (Ultram) 25 mg Q6H GT 10/07/19 11:00 10/14/19 10:59 10/09/19 05:15 Vitamin B Complex/ Vit C/Folic Acid (Nephrovite) 1 tab DAILY ORAL 10/06/19 09:00 11/05/19 08:59 10/08/19 10:05 Zinc Sulfate (Zinc Sulfate) 220 mg DAILY ORAL 10/06/19 09:00 10/16/19 08:59 10/08/19 10:05 Last 24 Hour Vital Signs Date Time Temp Pulse Resp B/P (MAP) Pulse Ox O2 Delivery O2 Flow Rate FiO2 10/09/19 07:31 64 21 100 Mechanical Ventilator 45 59 20 45 10/09/19 07:00 66 20 171/73 (105) 97 10/09/19 07:00 20 171/73 Mechanical Ventilator 45 10/09/19 06:45 64 22 166/72 (103) 96 10/09/19 06:30 66 22 155/69 (97) 97 10/09/19 06:15 62 19 160/64 (96) 98 10/09/19 06:00 20 156/59 Mechanical Ventilator 45 10/09/19 06:00 54 20 156/59 (91) 95 10/09/19 05:45 53 20 139/59 (85) 97 10/09/19 05:30 54 20 147/60 (89) 97 10/09/19 05:15 62 17 161/61 (94) 100 10/09/19 05:15 58 152/66 10/09/19 05:02 55 21 45 10/09/19 05:00 20 152/66 Mechanical Ventilator 45 10/09/19 05:00 54 20 152/66 (94) 96 10/09/19 04:45 57 19 152/67 (95) 97 10/09/19 04:30 55 20 159/65 (96) 96 10/09/19 04:15 54 19 144/62 (89) 96 10/09/19 04:00 45 10/09/19 04:00 98.5 54 19 153/65 (94) 97 10/09/19 04:00 Mechanical Ventilator Mechanical Ventilator 10/09/19 04:00 19 153/65 Mechanical Ventilator 45 10/09/19 03:45 55 20 140/65 (90) 96 10/09/19 03:30 61 19 156/62 (93) 97 10/09/19 03:15 61 24 155/61 (92) 97 10/09/19 03:00 61 10/09/19 03:00 62 22 164/63 (96) 97 10/09/19 03:00 22 164/63 Mechanical Ventilator 45 10/09/19 02:45 56 20 143/59 (87) 96 10/09/19 02:35 58 22 45 10/09/19 02:30 53 20 145/59 (87) 96 10/09/19 02:15 53 17 145/59 (87) 97 10/09/19 02:12 53 13 135/58 (83) 96 10/09/19 02:00 53 12 132/56 (81) 96 10/09/19 02:00 19 125/55 Mechanical Ventilator 45 10/09/19 01:45 54 18 131/57 (81) 96 10/09/19 01:30 58 20 143/65 (91) 96 10/09/19 01:15 58 20 125/55 (78) 97 10/09/19 01:01 59 20 98 Mechanical Ventilator 45 61 20 45 10/09/19 01:01 57 118/54 Mechanical Ventilator 45 10/09/19 01:00 61 20 137/64 (88) 98 10/09/19 00:45 53 20 118/54 (75) 98 10/09/19 00:30 55 20 116/51 (72) 97 10/09/19 00:15 58 20 123/52 (75) 97 10/09/19 00:00 Mechanical Ventilator Mechanical Ventilator 10/09/19 00:00 97.9 58 20 119/52 (74) 97 10/08/19 23:49 59 8/25/20 23:47 57 119/52 820 23:45 58 20 124/47 (72) 97 820 23:30 56 20 119/52 (74) 95 820 23:15 56 20 122/53 (76) 95 820 23:08 20 122/53 Mechanical Ventilator 45 820 23:00 58 20 126/54 (78) 97 10/08/19 23:00 20 122/53 Mechanical Ventilator 45 10/08/19 22:45 60 20 144/59 (87) 96 10/08/19 22:37 54 20 45 10/08/19 22:30 20 144/59 Mechanical Ventilator 45 10/08/19 22:30 54 20 114/58 (76) 97 10/08/19 22:15 54 20 126/54 (78) 95 20 22:00 54 20 124/54 (77) 95 20 22:00 20 126/54 Mechanical Ventilator 45 10/08/19 21:45 54 20 123/53 (76) 96 10/08/19 21:30 54 123/53 Mechanical Ventilator 45 10/08/19 21:30 56 20 128/56 (80) 96 10/08/19 21:15 64 19 148/57 (87) 98 10/08/19 21:00 20 148/57 Mechanical Ventilator 45 10/08/19 21:00 54 136/58 20 21:00 56 19 136/58 (84) 97 10/08/19 20:49 56 20 45 10/08/19 20:45 56 20 139/101 (114) 96 10/08/19 20:30 55 22 132/60 (84) 96 20 20:15 56 23 136/61 (86) 96 20 20:00 62 20 20:00 98.1 55 22 137/58 (84) 97 20 20:00 Mechanical Ventilator Mechanical Ventilator 820 20:00 45 820 20:00 20 136/61 Mechanical Ventilator 45 20 19:30 55 21 127/56 (79) 97 20 19:00 98.4 57 26 141/60 (87) 99 20 19:00 16 127/56 Mechanical Ventilator 45 10/08/19 18:48 56 20 99 Mechanical Ventilator 60.0 45 54 20 45 10/08/19 18:47 131/60 10/08/19 18:31 57 19 131/60 (83) 97 10/08/19 18:00 18 126/56 Mechanical Ventilator 45 10/08/19 18:00 55 120/54 10/08/19 18:00 55 20 122/54 (76) 97 10/08/19 17:30 55 21 119/56 (77) 97 10/08/19 17:00 56 22 117/51 (73) 97 10/08/19 17:00 18 126/56 Mechanical Ventilator 45 10/08/19 16:30 60 20 122/52 (75) 95 10/08/19 16:00 50 10/08/19 16:00 63 23 119/50 (73) 95 10/08/19 16:00 Mechanical Ventilator Mechanical Ventilator 10/08/19 16:00 16 129/73 Mechanical Ventilator 50 10/08/19 16:00 60 10/08/19 15:30 64 22 143/56 (85) 95 10/08/19 15:29 63 20 1 45 10/08/19 15:00 68 24 135/57 (83) 96 10/08/19 15:00 20 130/80 Mechanical Ventilator 50 10/08/19 14:30 66 18 137/55 (82) 96 10/08/19 14:00 69 23 150/62 (91) 99 10/08/19 14:00 23 154/63 Mechanical Ventilator 60 10/08/19 13:44 75 21 100 Mechanical Ventilator 50 75 25 60 10/08/19 13:30 87 27 190/81 (117) 98 10/08/19 13:00 22 172/71 Mechanical Ventilator 60 10/08/19 13:00 80 24 149/59 (89) 90 10/08/19 12:34 21 170/74 Mechanical Ventilator 50.0 60 10/08/19 12:34 78 170/74 10/08/19 12:33 22 149/59 Mechanical Ventilator 60 10/08/19 12:30 84 18 164/61 (95) 93 10/08/19 12:00 60 10/08/19 12:00 78 10/08/19 12:00 77 23 172/65 (100) 99 10/08/19 12:00 Mechanical Ventilator Mechanical Ventilator 10/08/19 11:30 79 26 168/59 (95) 96 10/08/19 11:00 29 168/59 Mechanical Ventilator 60 10/08/19 11:00 85 27 197/74 (115) 96 10/08/19 10:34 98.1 10/08/19 10:32 61 21 60 10/08/19 10:30 76 27 196/74 (114) 95 10/08/19 10:30 75 30 170/74 (106) 96 10/08/19 10:05 165/69 10/08/19 10:00 21 158/62 Mechanical Ventilator 60 10/08/19 10:00 61 21 152/59 (90) 98 10/08/19 09:30 61 20 155/65 (95) 97 10/08/19 09:00 71 17 166/76 (106) 96 10/08/19 09:00 20 167/64 Mechanical Ventilator 60 10/08/19 09:00 57 165/69 10/08/19 08:30 68 21 163/61 (95) 100 10/08/19 08:00 60 10/08/19 08:00 20 194/63 Mechanical Ventilator 60 10/08/19 08:00 Mechanical Ventilator Mechanical Ventilator 10/08/19 08:00 98.4 57 20 150/61 (90) 100 10/08/19 08:00 76 10/08/19 07:30 59 15 142/62 (88) 100 10/08/19 07:16 57 21 100 Mechanical Ventilator 60 58 20 60 10/08/19 07:00 18 165/69 Mechanical Ventilator 60 10/08/19 07:00 62 18 165/69 (101) 99 10/08/19 06:30 56 20 162/63 (96) 98 10/08/19 06:00 20 153/63 Mechanical Ventilator 60 10/08/19 06:00 54 20 153/63 (93) 98 10/08/19 05:56 54 143/58 10/08/19 05:30 54 20 150/58 (88) 99 10/08/19 05:17 54 20 60 10/08/19 05:00 20 143/58 Mechanical Ventilator 60 10/08/19 05:00 56 20 143/58 (86) 99 10/08/19 04:30 56 20 155/60 (91) 98 10/08/19 04:00 Mechanical Ventilator Mechanical Ventilator 10/08/19 04:00 98.1 55 20 161/64 (96) 98 10/08/19 04:00 20 161/64 Mechanical Ventilator 60 10/08/19 04:00 60 10/08/19 03:30 54 20 152/60 (90) 98 10/08/19 03:28 54 10/08/19 03:20 57 21 60 10/08/19 03:00 22 152/58 Mechanical Ventilator 60 10/08/19 03:00 56 22 152/58 (89) 98 10/08/19 02:30 58 20 139/53 (81) 97 10/08/19 02:00 20 142/94 Mechanical Ventilator 60 10/08/19 02:00 55 20 142/94 (110) 97 10/08/19 01:30 56 21 146/52 (83) 98 10/08/19 01:00 55 20 139/51 (80) 98 10/08/19 01:00 20 132/47 Mechanical Ventilator 60 10/08/19 00:52 58 20 60 10/08/19 00:30 56 22 128/51 (76) 95 10/08/19 00:00 Mechanical Ventilator Mechanical Ventilator 10/08/19 00:00 57 10/08/19 00:00 21 118/48 Mechanical Ventilator 60 10/08/19 00:00 56 126/53 10/08/19 00:00 98.7 57 21 118/48 (71) 95 10/08/19 00:00 60 10/07/19 23:30 58 20 130/51 (77) 95 10/07/19 23:18 57 20 60 10/07/19 23:00 57 23 119/49 (72) 94 10/07/19 23:00 23 119/49 Mechanical Ventilator 60 10/07/19 22:30 60 25 115/53 (73) 97 10/07/19 22:00 59 22 138/52 (80) 97 10/07/19 22:00 22 138/52 Mechanical Ventilator 60 10/07/19 21:30 65 26 147/52 (83) 98 10/07/19 21:00 64 21 138/56 (83) 96 10/07/19 21:00 21 138/56 Mechanical Ventilator 60 8/24/20 20:58 63 20 60 10/07/19 20:57 62 125/51 10/07/19 20:30 73 22 140/51 (80) 97 10/07/19 20:00 69 10/07/19 20:00 25 123/51 Mechanical Ventilator 60 10/07/19 20:00 98.6 69 25 123/51 (75) 99 10/07/19 20:00 60 10/07/19 20:00 Mechanical Ventilator Mechanical Ventilator 10/07/19 19:30 75 24 129/48 (75) 100 10/07/19 19:25 80 28 60 10/07/19 19:00 24 140/61 Mechanical Ventilator 60 10/07/19 19:00 99.0 82 25 140/61 (87) 98 10/07/19 18:45 28 122/57 Mechanical Ventilator 60 10/07/19 18:45 83 28 122/57 (78) 92 10/07/19 18:30 84 29 154/61 (92) 99 10/07/19 18:30 26 168/65 Mechanical Ventilator 60 10/07/19 18:00 84 33 186/75 (112) 100 10/07/19 18:00 29 186/75 Mechanical Ventilator 60 10/07/19 17:30 76 18 196/81 (119) 92 10/07/19 17:05 98 35 60 10/07/19 17:00 71 24 146/56 (86) 10/07/19 17:00 25 146/56 Mechanical Ventilator 60 10/07/19 16:30 67 23 142/56 (84) 97 10/07/19 16:00 62 10/07/19 16:00 98.1 62 20 151/59 (89) 10/07/19 16:00 21 144/53 Mechanical Ventilator 60 10/07/19 16:00 Mechanical Ventilator Mechanical Ventilator 10/07/19 16:00 60 10/07/19 15:30 61 20 145/55 (85) 10/07/19 15:28 20 145/55 Mechanical Ventilator 60 10/07/19 15:28 20 145/55 Mechanical Ventilator 60 10/07/19 15:00 20 145/55 Mechanical Ventilator 60 10/07/19 15:00 61 20 60 10/07/19 15:00 63 20 145/55 (85) 10/07/19 14:30 63 20 135/53 (80) 10/07/19 14:00 59 20 148/57 (87) 10/07/19 14:00 20 148/57 Mechanical Ventilator 60 10/07/19 13:30 58 20 157/58 (91) 10/07/19 13:05 58 20 60 10/07/19 13:00 59 20 141/54 (83) 10/07/19 13:00 20 157/58 Mechanical Ventilator 60 10/07/19 12:42 20 142/64 Endotracheal Tube 60 10/07/19 12:41 20 142/54 Mechanical Ventilator 60 10/07/19 12:35 60 10/07/19 12:30 58 20 142/54 (83) 98 10/07/19 12:29 60 10/07/19 12:15 58 20 10/07/19 12:00 98.2 58 20 141/59 (86) 10/07/19 12:00 Mechanical Ventilator Mechanical Ventilator 10/07/19 12:00 80 10/07/19 12:00 20 142/76 Mechanical Ventilator 80 10/07/19 12:00 58 141/59 10/07/19 12:00 58 10/07/19 11:30 64 19 144/75 (98) 92 10/07/19 11:10 72 24 80 10/07/19 11:00 21 167/65 Mechanical Ventilator 80 10/07/19 11:00 65 21 174/70 (104) 98 10/07/19 10:30 60 20 149/56 (87) 94 10/07/19 10:00 20 157/62 Endotracheal Tube 80 10/07/19 10:00 62 20 157/62 (93) 95 10/07/19 09:50 80 10/07/19 09:30 62 20 158/62 (94) 98 10/07/19 09:21 143/55 10/07/19 09:10 58 20 100 10/07/19 09:00 58 20 143/55 (84) 96 10/07/19 09:00 20 143/55 Mechanical Ventilator 100 10/07/19 08:30 58 20 147/56 (86) 96 10/07/19 08:00 98.2 58 20 160/60 (93) 98 10/07/19 08:00 54 10/07/19 08:00 20 160/60 Mechanical Ventilator 100 10/07/19 08:00 100 10/07/19 08:00 Mechanical Ventilator Mechanical Ventilator Intake and Output 10/08/19 10/09/19 19:00 07:00 Intake Total 963.0 ml 742.3 ml Output Total 40 ml 120 ml Balance 923.0 ml 622.3 ml Intake Free Water 200 ml 200 ml IV Total 253.0 ml 142.3 ml Tube Feeding 480 ml 400 ml Other 30 ml Output Urine Total 40 ml 120 ml # Bowel Movements 3 Labs Test 10/06/19 23:12 10/07/19 05:10 10/07/19 05:11 10/08/19 03:15 POC Whole Blood Glucose 100 MG/DL (74-106) 88 MG/DL (74-106) White Blood Count 7.9 K/UL (4.8-10.8) 12.1 K/UL (4.8-10.8) Red Blood Count 2.81 M/UL (4.20-5.40) 2.98 M/UL (4.20-5.40) Hemoglobin 8.6 G/DL (12.0-16.0) 9.3 G/DL (12.0-16.0) Hematocrit 27.3 % (37.0-47.0) 28.8 % (37.0-47.0) Mean Corpuscular Volume 97 FL (80-99) 97 FL (80-99) Mean Corpuscular Hemoglobin 30.5 PG (27.0-31.0) 31.1 PG (27.0-31.0) Mean Corpuscular Hemoglobin Concent 31.5 G/DL (32.0-36.0) 32.2 G/DL (32.0-36.0) Red Cell Distribution Width 15.1 % (11.6-14.8) 14.9 % (11.6-14.8) Platelet Count 412 K/UL (150-450) 419 K/UL (150-450) Mean Platelet Volume 5.7 FL (6.5-10.1) 5.9 FL (6.5-10.1) Neutrophils (%) (Auto) 66.7 % (45.0-75.0) 83.2 % (45.0-75.0) Lymphocytes (%) (Auto) 21.4 % (20.0-45.0) 11.4 % (20.0-45.0) Monocytes (%) (Auto) 6.9 % (1.0-10.0) 4.3 % (1.0-10.0) Eosinophils (%) (Auto) 3.9 % (0.0-3.0) 0.4 % (0.0-3.0) Basophils (%) (Auto) 1.1 % (0.0-2.0) 0.8 % (0.0-2.0) Sodium Level 140 MMOL/L (136-145) 134 MMOL/L (136-145) Potassium Level 4.0 MMOL/L (3.5-5.1) 4.0 MMOL/L (3.5-5.1) Chloride Level 102 MMOL/L (98-107) 101 MMOL/L (98-107) Carbon Dioxide Level 26 MMOL/L (21-32) 24 MMOL/L (21-32) Anion Gap 12 mmol/L (5-15) 9 mmol/L (5-15) Blood Urea Nitrogen 80 mg/dL (7-18) 54 mg/dL (7-18) Creatinine 3.3 MG/DL (0.55-1.30) 2.5 MG/DL (0.55-1.30) Estimat Glomerular Filtration Rate 15.0 mL/min (>60) 20.6 mL/min (>60) Glucose Level 85 MG/DL (74-106) 106 MG/DL (74-106) Calcium Level 9.6 MG/DL (8.5-10.1) 8.8 MG/DL (8.5-10.1) Phosphorus Level 5.7 MG/DL (2.5-4.9) Magnesium Level 3.5 MG/DL (1.8-2.4) Total Bilirubin 0.3 MG/DL (0.2-1.0) Aspartate Amino Transf (AST/SGOT) 21 U/L (15-37) Alanine Aminotransferase (ALT/SGPT) 8 U/L (12-78) Alkaline Phosphatase 157 U/L (46-116) C-Reactive Protein, Quantitative 10.9 mg/dL (0.00-0.90) Pro-B-Type Natriuretic Peptide > 65080 pg/mL (0-125) Total Protein 6.7 G/DL (6.4-8.2) Albumin 1.6 G/DL (3.4-5.0) Globulin 5.1 g/dL Albumin/Globulin Ratio 0.3 (1.0-2.7) Test 10/08/19 16:40 10/09/19 04:00 Urine Color Yellow Urine Appearance Very cloudy Urine pH 6.0 (4.5-8.0) Urine Specific [place] 1.015 (1.005-1.035) Urine Protein 4+ (NEGATIVE) Urine Glucose (UA) Negative (NEGATIVE) Urine Ketones Negative (NEGATIVE) Urine Blood 4+ (NEGATIVE) Urine Nitrite Negative (NEGATIVE) Urine Bilirubin Negative (NEGATIVE) Urine Urobilinogen Normal MG/DL (0.0-1.0) Urine Leukocyte Esterase 4+ (NEGATIVE) Urine RBC 60-80 /HPF (0 - 2) Urine WBC Tntc /HPF (0 - 2) Urine Squamous Epithelial Cells Moderate /LPF (NONE/OCC) Urine Bacteria Many /HPF (NONE) Urine Yeast Few /HPF (NONE) White Blood Count 6.7 K/UL (4.8-10.8) Red Blood Count 3.36 M/UL (4.20-5.40) Hemoglobin 10.3 G/DL (12.0-16.0) Hematocrit 32.0 % (37.0-47.0) Mean Corpuscular Volume 95 FL (80-99) Mean Corpuscular Hemoglobin 30.5 PG (27.0-31.0) Mean Corpuscular Hemoglobin Concent 32.1 G/DL (32.0-36.0) Red Cell Distribution Width 14.1 % (11.6-14.8) Platelet Count 432 K/UL (150-450) Mean Platelet Volume 5.8 FL (6.5-10.1) Neutrophils (%) (Auto) 75.5 % (45.0-75.0) Lymphocytes (%) (Auto) 17.2 % (20.0-45.0) Monocytes (%) (Auto) 5.7 % (1.0-10.0) Eosinophils (%) (Auto) 0.4 % (0.0-3.0) Basophils (%) (Auto) 1.3 % (0.0-2.0) Sodium Level 134 MMOL/L (136-145) Potassium Level 4.2 MMOL/L (3.5-5.1) Chloride Level 99 MMOL/L (98-107) Carbon Dioxide Level 23 MMOL/L (21-32) Anion Gap 12 mmol/L (5-15) Blood Urea Nitrogen 68 mg/dL (7-18) Creatinine 2.9 MG/DL (0.55-1.30) Estimat Glomerular Filtration Rate 17.4 mL/min (>60) Glucose Level 92 MG/DL (74-106) Calcium Level 9.0 MG/DL (8.5-10.1) Total Bilirubin 0.4 MG/DL (0.2-1.0) Aspartate Amino Transf (AST/SGOT) 25 U/L (15-37) Alanine Aminotransferase (ALT/SGPT) 8 U/L (12-78) Alkaline Phosphatase 167 U/L (46-116) Total Protein 7.3 G/DL (6.4-8.2) Albumin 1.6 G/DL (3.4-5.0) Globulin 5.7 g/dL Albumin/Globulin Ratio 0.3 (1.0-2.7) Height (Feet): 5 Height (Inches): 5.00 Weight (Pounds): 141 Objective Physical Exam: Vitals: reviewed General: NAD HEENT: nc, at Neck: supple ++tracn/vent Chest: clear breath sounds bilaterally Cardiovascular: RRR, no s3, s4 Abdomen: soft, nontender, nd +gtube Extremities: no cce, normal range of motion Neuro: alert Evan Muhammad MD Oct 09, 2019 07:47
[2019-10-09] MEDS: Docusate 100mg/10ml Liq GT SCH ×2 (08:30→16:21)
[2019-10-09] MEDS: Heparin 5000 units/ml inj SUBQ SCH ×2 (08:46→20:53)
[2019-10-09] MEDS: Zinc Sulfate 220mg ORAL SCH (08:46)
[2019-10-09] MEDS: Ascorbic Acid 500mg tab ORAL SCH (08:46)
[2019-10-09] MEDS: Midazolam 2mg/2ml Inj IVP PRN ×3 (08:47→21:07)
[2019-10-09] MEDS: Nephrovite tab (Rena-Vite) ORAL SCH (08:47)
[2019-10-09] MEDS: Haloperidol 5mg/ml Inj IM PRN ×2 (08:47→16:50)
[2019-10-09] MEDS: Metoprolol Tartrate 50mg tab GT SCH ×2 (08:48→08:50)
[2019-10-09] MEDS: Lactulose 10gm/15ml UDC ORAL SCH ×3 (08:48→16:51)
[2019-10-09] MEDS: Lisinopril 10mg tab GT SCH (08:50)
--- NOTE | 2019-10-09 10:23 | Pulmonolgy Critical Care Note ---
Yara Castro CHICK[facility] FANCIER 10/09/19 1023: Critical Care - Asmt/Plan Assessment/Plan: ASSESSMENT Acute on chronic hypoxemic respiratory failure ( trach dependent), now on vent Tracheostomy status, s/p change to cuffed trach Sepsis Pulmonary edema Pleural effusion -worsening left pl effusion s/p thoracentesis L pleural effusion 09/26 -900 ml Pneumonia with MDR Pseudomonas UTI CHF ? cardiorenal COPD Acute kidney injury and chronic kidney disease-requiring start of HD Hypertension Atrial fibrillation Moderate pulm HTN Moderate AR Dysphagia , feeding by G-tube Electrolyte abnormalities Anemia Toxic metabolic encephalopathy likely due to sepsis and ARF HTN PAF PLAN OF CARE ICU on vent AC trach changed 8/4 pm from uncuffed to cuffed Shiley#[address] chest w/out contrast: - Bilateral pleural effusions, right greater than left, with bilateral lower lobe consolidation or volume loss. -Ground-glass densities in the upper lobes bilaterally. This is not specific. -Tracheostomy. -Increased superior mediastinal density. Stability of adenopathy cannot be excluded. -Atherosclerotic change. -Gastrostomy. -Ascites. -Left renal stent with left hydronephrosis and renal atrophy. VQ scan -> low probability for PE worsening resp status was due to need for HD, now after HD started, resp status improving, down to PEEP 5 and AC 20 trach care , pulmonary toilet ABG this am on FiO2 45 % mild hypoxia, but pulse oximetry above 90% , keep as is and titrate Fio2 further down as tolerated fup with ABG and CXR Mucomyst was prior dc given lots of thin secretions, continue Duoneb prn rapid COVID 19 NGT x3 sedation with fentanyl gtt and Versed prn-> off Versed and on weaning from Fentanyl as tolerated unable to wean, gets agitated and anxious 10/03 night desaturated, apparently due to anxiety, Fio2 up to 100% again ABG and CXR noted, now after HD with UF 10/06 down to 60% unable to wean from fentanyl, gets very anxious when down titrating Fentanyl psych eval appreciated, psych meds regimen implemented discussed with psych re possible change in psych meds in order to be able to wean from Fentanyl gtt Haldol IM prn added, psych input appreciated now able to down titrate to FiO2 40% Fentanyl gtt at 60 mcg/hr will add Morphine prn for pain /had decub ulcer with associated pain with plan to wean from fentanyl and move out of ICU s/p thoracentesis L pleural effusion 09/26 am -> 900 ml fluid analysis noted, unlikely empyema given small # of WBC fup with fluid cx ( apparently never sent despite orders) cytology -> NGT, no malignant cells aspiration precautions venous Duplex BLE -> NGT DVT prophylaxis pulm toilet, abx as per ID- s/p gent x 1, now on Vanco and Zerbaxa , completed 10/02 SCX 09/15 + Proteus, SCX 09/22 Pseudomonas MDR UCX 09/14 + Providencia , UCX 09/22 VRE - K only BCX 09/14 Staph epidermidis, BCX 09/15 NGT , BCX 09/22 and 09/26 - NGTD UA 10/07 noted, fup with UCX -monitor off abx as per ID recs monitor volumes was on gentle IVF-> dc s/p prior diuretic-Lasix require initiation of HD continue further HD as per nephro with close monitoring of volumes, renal parameters and lytes -per nephro recs ECHO with pEF , moderate pulm HTN and moderate AR BP management with current regimen of BB, Cardizem and Hydralazine, remains in SR monitor HH with goal to keep Hgb >7, heme on board on EPO supportive care pain management wound care bowel regimen thank you for a consult Critical Care - Objective Last 24 Hour Vital Signs Date Time Temp Pulse Resp B/P (MAP) Pulse Ox O2 Delivery O2 Flow Rate FiO2 10/09/19 09:26 63 20 40 10/09/19 08:50 171/73 10/09/19 08:50 58 140/60 10/09/19 07:31 64 21 100 Mechanical Ventilator 45 59 20 45 10/09/19 07:00 66 20 171/73 (105) 97 10/09/19 07:00 20 171/73 Mechanical Ventilator 45 10/09/19 06:45 64 22 166/72 (103) 96 10/09/19 06:30 66 22 155/69 (97) 97 10/09/19 06:15 62 19 160/64 (96) 98 10/09/19 06:00 20 156/59 Mechanical Ventilator 45 10/09/19 06:00 54 20 156/59 (91) 95 10/09/19 05:45 53 20 139/59 (85) 97 10/09/19 05:30 54 20 147/60 (89) 97 10/09/19 05:15 62 17 161/61 (94) 100 10/09/19 05:15 58 152/66 10/09/19 05:02 55 21 45 10/09/19 05:00 20 152/66 Mechanical Ventilator 45 10/09/19 05:00 54 20 152/66 (94) 96 10/09/19 04:45 57 19 152/67 (95) 97 10/09/19 04:30 55 20 159/65 (96) 96 10/09/19 04:15 54 19 144/62 (89) 96 10/09/19 04:00 45 10/09/19 04:00 98.5 54 19 153/65 (94) 97 10/09/19 04:00 Mechanical Ventilator Mechanical Ventilator 10/09/19 04:00 19 153/65 Mechanical Ventilator 45 10/09/19 03:45 55 20 140/65 (90) 96 10/09/19 03:30 61 19 156/62 (93) 97 10/09/19 03:15 61 24 155/61 (92) 97 10/09/19 03:00 61 10/09/19 03:00 62 22 164/63 (96) 97 10/09/19 03:00 22 164/63 Mechanical Ventilator 45 10/09/19 02:45 56 20 143/59 (87) 96 10/09/19 02:35 58 22 45 10/09/19 02:30 53 20 145/59 (87) 96 10/09/19 02:15 53 17 145/59 (87) 97 10/09/19 02:12 53 13 135/58 (83) 96 10/09/19 02:00 53 12 132/56 (81) 96 10/09/19 02:00 19 125/55 Mechanical Ventilator 45 10/09/19 01:45 54 18 131/57 (81) 96 10/09/19 01:30 58 20 143/65 (91) 96 10/09/19 01:15 58 20 125/55 (78) 97 10/09/19 01:01 59 20 98 Mechanical Ventilator 45 61 20 45 10/09/19 01:01 57 118/54 Mechanical Ventilator 45 10/09/19 01:00 61 20 137/64 (88) 98 10/09/19 00:45 53 20 118/54 (75) 98 10/09/19 00:30 55 20 116/51 (72) 97 10/09/19 00:15 58 20 123/52 (75) 97 10/09/19 00:00 Mechanical Ventilator Mechanical Ventilator 10/09/19 00:00 97.9 58 20 119/52 (74) 97 10/08/19 23:49 59 10/08/19 23:47 57 119/52 10/08/19 23:45 58 20 124/47 (72) 97 10/08/19 23:30 56 20 119/52 (74) 95 10/08/19 23:15 56 20 122/53 (76) 95 10/08/19 23:08 20 122/53 Mechanical Ventilator 45 10/08/19 23:00 58 20 126/54 (78) 97 10/08/19 23:00 20 122/53 Mechanical Ventilator 45 10/08/19 22:45 60 20 144/59 (87) 96 10/08/19 22:37 54 20 45 10/08/19 22:30 20 144/59 Mechanical Ventilator 45 10/08/19 22:30 54 20 114/58 (76) 97 10/08/19 22:15 54 20 126/54 (78) 95 10/08/19 22:00 54 20 124/54 (77) 95 10/08/19 22:00 20 126/54 Mechanical Ventilator 45 10/08/19 21:45 54 20 123/53 (76) 96 10/08/19 21:30 54 123/53 Mechanical Ventilator 45 10/08/19 21:30 56 20 128/56 (80) 96 10/08/19 21:15 64 19 148/57 (87) 98 10/08/19 21:00 20 148/57 Mechanical Ventilator 45 10/08/19 21:00 54 136/58 10/08/19 21:00 56 19 136/58 (84) 97 10/08/19 20:49 56 20 45 10/08/19 20:45 56 20 139/101 (114) 96 10/08/19 20:30 55 22 132/60 (84) 96 10/08/19 20:15 56 23 136/61 (86) 96 10/08/19 20:00 62 10/08/19 20:00 98.1 55 22 137/58 (84) 97 10/08/19 20:00 Mechanical Ventilator Mechanical Ventilator 10/08/19 20:00 45 10/08/19 20:00 20 136/61 Mechanical Ventilator 45 10/08/19 19:30 55 21 127/56 (79) 97 10/08/19 19:00 98.4 57 26 141/60 (87) 99 10/08/19 19:00 16 127/56 Mechanical Ventilator 45 10/08/19 18:48 56 20 99 Mechanical Ventilator 60.0 45 54 20 45 10/08/19 18:47 131/60 10/08/19 18:31 57 19 131/60 (83) 97 10/08/19 18:00 18 126/56 Mechanical Ventilator 45 10/08/19 18:00 55 120/54 10/08/19 18:00 55 20 122/54 (76) 97 10/08/19 17:30 55 21 119/56 (77) 97 10/08/19 17:00 56 22 117/51 (73) 97 10/08/19 17:00 18 126/56 Mechanical Ventilator 45 10/08/19 16:30 60 20 122/52 (75) 95 10/08/19 16:00 50 10/08/19 16:00 63 23 119/50 (73) 95 10/08/19 16:00 Mechanical Ventilator Mechanical Ventilator 10/08/19 16:00 16 129/73 Mechanical Ventilator 50 10/08/19 16:00 60 10/08/19 15:30 64 22 143/56 (85) 95 10/08/19 15:29 63 20 1 45 10/08/19 15:00 68 24 135/57 (83) 96 10/08/19 15:00 20 130/80 Mechanical Ventilator 50 10/08/19 14:30 66 18 137/55 (82) 96 10/08/19 14:00 69 23 150/62 (91) 99 10/08/19 14:00 23 154/63 Mechanical Ventilator 60 10/08/19 13:44 75 21 100 Mechanical Ventilator 50 75 25 60 10/08/19 13:30 87 27 190/81 (117) 98 10/08/19 13:00 22 172/71 Mechanical Ventilator 60 10/08/19 13:00 80 24 149/59 (89) 90 10/08/19 12:34 21 170/74 Mechanical Ventilator 50.0 60 10/08/19 12:34 78 170/74 10/08/19 12:33 22 149/59 Mechanical Ventilator 60 10/08/19 12:30 84 18 164/61 (95) 93 10/08/19 12:00 60 10/08/19 12:00 78 10/08/19 12:00 77 23 172/65 (100) 99 10/08/19 12:00 Mechanical Ventilator Mechanical Ventilator 10/08/19 11:30 79 26 168/59 (95) 96 10/08/19 11:00 29 168/59 Mechanical Ventilator 60 10/08/19 11:00 85 27 197/74 (115) 96 10/08/19 10:34 98.1 10/08/19 10:32 61 21 60 10/08/19 10:30 76 27 196/74 (114) 95 10/08/19 10:30 75 30 170/74 (106) 96 Objective: General Appearance: no apparent distress, bedridden middle age chronically ill looking female on vent AC 500-20- 40%, PEEP 5, sedated Lines, tubes and drains: left jugular HD catheter HEENT: normocephalic, atraumatic, anicteric, trach - Shiley #7 cuffed XLT, secretions moderate amount, yellow color , thick consistency Respiratory/Chest: no accessory muscle use, few isolated rhonchi Cardiovascular/Chest: normal rate, regular rhythm - SR on tele Abdomen: normal bowel sounds, non tender, soft, G tube Genitourinary/Rectal: [place] Extremities: no edema Skin Exam: warm/dry, multiple tattoos all over the body Neurologic: abnormal gait, sedated Musculoskeletal: atrophy - BLE Accucheck: 92 Critical Care - Subjective ROS Limited/Unobtainable: Yes Interval Events: leukocytosis from yesterday resolved, no fevers FiO2 down to 40 % Fentanyl down to 60 mcg/hr BP elevated with HR going down at times, awaitng for HD Condition: critical IV Access: central - L internal jugular intact EKG Rhythm: Sinus Rhythm FI02: 40 Vent Support Breath Rate: 20 Vent Support Mode: AC Vent Tidal Volume: 500 Sputum Amount: Small PEEP: 5.0 PIP: 19 Drips: Fentanyl gtt 60 mcg/hr Tube Feeding Amount: 0 I&O: Intake and Output 10/08/19 10/09/19 19:00 07:00 Intake Total 963.0 ml 742.3 ml Output Total 40 ml 120 ml Balance 923.0 ml 622.3 ml Intake Free Water 200 ml 200 ml IV Total 253.0 ml 142.3 ml Tube Feeding 480 ml 400 ml Other 30 ml Output Urine Total 40 ml 120 ml # Bowel Movements 3 CXR: CXR 10/08 Dialysis catheter, tracheostomy remain. Left pleural effusion persists. Hazy right basilar haziness may reflect overlying soft tissue or could indicate some pleural fluid and/or consolidation, as well. Appearance of this is unchanged. Bang Guardado MD 10/09/19 1430: Critical Care - Asmt/Plan Assessment/Plan: Patient seen and examined with [facility]. Agree with above A&P as it reflects our joint deliberations. CC Time: 40 min Yara Castro NP Oct 09, 2019 10:23 Bang Guardado MD Oct 09, 2019 14:30
--- NOTE | 2019-10-09 10:26 | Nephrology Progress Note ---
Assessment/Plan Problem List: (1) JAVIER (acute kidney injury) (2) Renal failure (ARF), acute on chronic (3) Dehydration (4) Electrolyte imbalance (5) Anemia (6) Respiratory failure, acute and chronic (7) COPD with exacerbation Assessment Patient is presented with sepsis and pneumonia and UTI Patient has acute renal failure, possible underlying chronic kidney failure Severe anemia Electrolyte imbalances: Hyponatremia, hypo-kalemia Chronic respiratory failure, COPD exacerbation Plan October 08: Labs reviewed. Patient oliguric. Blood pressure elevated, BP medication adjusted. Recheck lab tomorrow. Dialysis and ultrafiltration as needed. October 07: Labs reviewed. Patient was dialyzed yesterday. 3000 mL fluid was removed. Patient appears to need periodic (twice a week minimum) dialysis for ultrafiltration. Continue to monitor renal parameters. Continue per consultants. October 06: Labs reviewed. Discussed with pulmonary. Will attempt dialysis and ultrafiltration. Continue per consultants. October 05: Lab reviewed. Serum creatinine rising. Blood pressure stabilized. Will recheck lab tomorrow. Dialysis as needed. Will increase lisinopril to 10 mg twice a day. October 04: Lab reviewed. Blood pressure medication adjusted since the patient is hypotensive. Serum creatinine rising. Recheck labs tomorrow. Dialysis as needed. Discussed with RN. October 03: Lab reviewed. Zestril added to BP medication. 1 dose of Seroquel ordered for agitation. Continue to monitor renal parameters. Continue per consultants. October 02: Lab reviewed. Potassium supplement IV given. 3% saline 250 cc ordered. Responded well to Zaroxolyn yesterday. Will continue to monitor electrolytes and renal parameters. Will increase minoxidil to 2.5 mg every 6 hours. October 01: Labs reviewed. Potassium supplement given. Last dialysis September 29. Serum creatinine rising gradually. Urine output very low. Patient appears to continue to need dialysis at least twice a week. Blood pressure still running high I will switch the hydralazine to minoxidil. We will give 1 dose of Zaroxolyn 10 mg today. Will check renal parameters tomorrow. September 30: Patient dialyzed yesterday. 3 L removed. Labs reviewed. Potassium supplement given. Continue per consultants. It appears that the patient required dialysis 2-3 times a week. September 29: Lab reviewed. Chest x-ray result noted. Continues to have pulmonary congestion. Urine output low. Will attempt dialysis again today with ultrafiltration. September 28: Lab reviewed. ABG reviewed. Potassium supplement given. No dialysis at this point. Will eval patient status and renal parameters daily. September 27: Lab reviewed. Last dialysis September 25. Continue to monitor renal parameters. Hemodialysis as needed. September 26: Lab reviewed. Dialyzed yesterday. Potassium supplement given. Medication list reviewed. Will observe renal parameters and arrange for dialysis as needed. September 25: Lab reviewed. Currently on hemodialysis. Tolerating well. Stable from renal standpoint of view. Blood pressure medication adjusted by increasing hydralazine. September 24: Lab reviewed. ABG reviewed. Both lab and ABG much improved. Patient was dialyzed yesterday. We will attempt dialysis tomorrow again. Will adjust that blood pressure medication dosages. September 23: Lab reviewed. ABG reviewed. Patient acidotic. IV bicarb 1 dose is given. Patient has dialysis catheter. Will order dialysis for ultrafiltration and correction of acid-base. Discussed with ERASMO Mohr. September 22: Labs reviewed. Potassium high. Kayexalate and Reglan given. Will discuss with the consultants regarding initiation of dialysis. September 21: Patient is being sedated. Labs reviewed. Potassium supplement discontinued. GFR 20. Continue per current treatment plan. Dialysis and ultrafiltration is a consideration. September 20: Patient periodically agitated. Labs reviewed. Creatinine 2.4. Medication reviewed. Continue per consultants. Calculated creatinine clearance 21. May need isolated ultrafiltration on dialysis. Will discuss with PMD. Meanwhile hemoglobin is lower, defer transfusion to PMD. September 19: DC IV fluid. Zaroxolyn via GT tube. Potassium supplement. Attempt to diurese. Chest CT as bilateral pleural effusion. If diuresis unsuccessful, will consider dialysis and ultrafiltration. September 18: Potassium supplement IV given. Hemoglobin stable. Patient remains full code. Continue per consultants. Previously: Potassium supplement IV Slow IV hydration Epogen subcu Adjust blood pressure medication IV fluid, rate adjusted Norman catheter, intake and output Monitor renal parameters Avoid nephrotoxic's Antibiotics Per orders 2D echocardiogram Kidney ultrasound Subjective ROS Limited/Unobtainable: Yes Objective Objective Last 24 Hour Vital Signs Date Time Temp Pulse Resp B/P (MAP) Pulse Ox O2 Delivery O2 Flow Rate FiO2 10/09/19 09:26 63 20 40 10/09/19 08:50 171/73 10/09/19 08:50 58 140/60 10/09/19 07:31 64 21 100 Mechanical Ventilator 45 59 20 45 10/09/19 07:00 66 20 171/73 (105) 97 10/09/19 07:00 20 171/73 Mechanical Ventilator 45 10/09/19 06:45 64 22 166/72 (103) 96 10/09/19 06:30 66 22 155/69 (97) 97 10/09/19 06:15 62 19 160/64 (96) 98 10/09/19 06:00 20 156/59 Mechanical Ventilator 45 10/09/19 06:00 54 20 156/59 (91) 95 10/09/19 05:45 53 20 139/59 (85) 97 10/09/19 05:30 54 20 147/60 (89) 97 10/09/19 05:15 62 17 161/61 (94) 100 10/09/19 05:15 58 152/66 10/09/19 05:02 55 21 45 10/09/19 05:00 20 152/66 Mechanical Ventilator 45 10/09/19 05:00 54 20 152/66 (94) 96 10/09/19 04:45 57 19 152/67 (95) 97 10/09/19 04:30 55 20 159/65 (96) 96 10/09/19 04:15 54 19 144/62 (89) 96 10/09/19 04:00 45 10/09/19 04:00 98.5 54 19 153/65 (94) 97 10/09/19 04:00 Mechanical Ventilator Mechanical Ventilator 10/09/19 04:00 19 153/65 Mechanical Ventilator 45 10/09/19 03:45 55 20 140/65 (90) 96 10/09/19 03:30 61 19 156/62 (93) 97 10/09/19 03:15 61 24 155/61 (92) 97 10/09/19 03:00 61 10/09/19 03:00 62 22 164/63 (96) 97 10/09/19 03:00 22 164/63 Mechanical Ventilator 45 10/09/19 02:45 56 20 143/59 (87) 96 10/09/19 02:35 58 22 45 10/09/19 02:30 53 20 145/59 (87) 96 10/09/19 02:15 53 17 145/59 (87) 97 10/09/19 02:12 53 13 135/58 (83) 96 10/09/19 02:00 53 12 132/56 (81) 96 10/09/19 02:00 19 125/55 Mechanical Ventilator 45 10/09/19 01:45 54 18 131/57 (81) 96 10/09/19 01:30 58 20 143/65 (91) 96 10/09/19 01:15 58 20 125/55 (78) 97 10/09/19 01:01 59 20 98 Mechanical Ventilator 45 61 20 45 10/09/19 01:01 57 118/54 Mechanical Ventilator 45 10/09/19 01:00 61 20 137/64 (88) 98 10/09/19 00:45 53 20 118/54 (75) 98 10/09/19 00:30 55 20 116/51 (72) 97 10/09/19 00:15 58 20 123/52 (75) 97 10/09/19 00:00 Mechanical Ventilator Mechanical Ventilator 10/09/19 00:00 97.9 58 20 119/52 (74) 97 10/08/19 23:49 59 10/08/19 23:47 57 119/52 10/08/19 23:45 58 20 124/47 (72) 97 10/08/19 23:30 56 20 119/52 (74) 95 10/08/19 23:15 56 20 122/53 (76) 95 10/08/19 23:08 20 122/53 Mechanical Ventilator 45 10/08/19 23:00 58 20 126/54 (78) 97 10/08/19 23:00 20 122/53 Mechanical Ventilator 45 10/08/19 22:45 60 20 144/59 (87) 96 10/08/19 22:37 54 20 45 10/08/19 22:30 20 144/59 Mechanical Ventilator 45 10/08/19 22:30 54 20 114/58 (76) 97 10/08/19 22:15 54 20 126/54 (78) 95 10/08/19 22:00 54 20 124/54 (77) 95 10/08/19 22:00 20 126/54 Mechanical Ventilator 45 10/08/19 21:45 54 20 123/53 (76) 96 10/08/19 21:30 54 123/53 Mechanical Ventilator 45 10/08/19 21:30 56 20 128/56 (80) 96 10/08/19 21:15 64 19 148/57 (87) 98 10/08/19 21:00 20 148/57 Mechanical Ventilator 45 10/08/19 21:00 54 136/58 10/08/19 21:00 56 19 136/58 (84) 97 10/08/19 20:49 56 20 45 10/08/19 20:45 56 20 139/101 (114) 96 10/08/19 20:30 55 22 132/60 (84) 96 10/08/19 20:15 56 23 136/61 (86) 96 10/08/19 20:00 62 10/08/19 20:00 98.1 55 22 137/58 (84) 97 10/08/19 20:00 Mechanical Ventilator Mechanical Ventilator 10/08/19 20:00 45 10/08/19 20:00 20 136/61 Mechanical Ventilator 45 10/08/19 19:30 55 21 127/56 (79) 97 10/08/19 19:00 98.4 57 26 141/60 (87) 99 10/08/19 19:00 16 127/56 Mechanical Ventilator 45 10/08/19 18:48 56 20 99 Mechanical Ventilator 60.0 45 54 20 45 10/08/19 18:47 131/60 10/08/19 18:31 57 19 131/60 (83) 97 10/08/19 18:00 18 126/56 Mechanical Ventilator 45 10/08/19 18:00 55 120/54 10/08/19 18:00 55 20 122/54 (76) 97 10/08/19 17:30 55 21 119/56 (77) 97 10/08/19 17:00 56 22 117/51 (73) 97 10/08/19 17:00 18 126/56 Mechanical Ventilator 45 10/08/19 16:30 60 20 122/52 (75) 95 10/08/19 16:00 50 10/08/19 16:00 63 23 119/50 (73) 95 10/08/19 16:00 Mechanical Ventilator Mechanical Ventilator 10/08/19 16:00 16 129/73 Mechanical Ventilator 50 10/08/19 16:00 60 10/08/19 15:30 64 22 143/56 (85) 95 10/08/19 15:29 63 20 1 45 10/08/19 15:00 68 24 135/57 (83) 96 10/08/19 15:00 20 130/80 Mechanical Ventilator 50 10/08/19 14:30 66 18 137/55 (82) 96 10/08/19 14:00 69 23 150/62 (91) 99 10/08/19 14:00 23 154/63 Mechanical Ventilator 60 10/08/19 13:44 75 21 100 Mechanical Ventilator 50 75 25 60 10/08/19 13:30 87 27 190/81 (117) 98 10/08/19 13:00 22 172/71 Mechanical Ventilator 60 10/08/19 13:00 80 24 149/59 (89) 90 10/08/19 12:34 21 170/74 Mechanical Ventilator 50.0 60 10/08/19 12:34 78 170/74 10/08/19 12:33 22 149/59 Mechanical Ventilator 60 10/08/19 12:30 84 18 164/61 (95) 93 10/08/19 12:00 60 10/08/19 12:00 78 10/08/19 12:00 77 23 172/65 (100) 99 10/08/19 12:00 Mechanical Ventilator Mechanical Ventilator 10/08/19 11:30 79 26 168/59 (95) 96 10/08/19 11:00 29 168/59 Mechanical Ventilator 60 10/08/19 11:00 85 27 197/74 (115) 96 10/08/19 10:34 98.1 10/08/19 10:32 61 21 60 10/08/19 10:30 76 27 196/74 (114) 95 10/08/19 10:30 75 30 170/74 (106) 96 Intake and Output 10/08/19 10/09/19 19:00 07:00 Intake Total 963.0 ml 742.3 ml Output Total 40 ml 120 ml Balance 923.0 ml 622.3 ml Intake Free Water 200 ml 200 ml IV Total 253.0 ml 142.3 ml Tube Feeding 480 ml 400 ml Other 30 ml Output Urine Total 40 ml 120 ml # Bowel Movements 3 Current Medications Medications (Trade) Dose Ordered Sig/Penny Route PRN Reason Start Time Stop Time Status Last Admin Dose Admin Acetaminophen (Tylenol) 325 mg Q6H PRN GT Temp >100.5 09/23/19 10:45 10/23/19 10:44 09/23/19 18:55 Albuterol/ Ipratropium (Albuterol/ Ipratropium) 3 ml Q6HRT HHN 10/09/19 13:00 10/14/19 12:59 UNV Ascorbic Acid (Vitamin C) 500 mg DAILY ORAL 10/06/19 09:00 11/05/19 08:59 10/09/19 08:46 Chlorhexidine Gluconate (Ling-Hex 2%) 1 applic DAILY@2000 TOPIC 09/23/19 20:00 12/22/19 19:59 10/08/19 21:11 Dextrose (Dextrose 50%) 25 ml Q30M PRN IV Hypoglycemia 10/05/19 18:30 01/03/20 18:29 Dextrose (Dextrose 50%) 50 ml Q30M PRN IV Hypoglycemia 10/05/19 18:30 01/03/20 18:29 Diltiazem HCl (Cardizem Tab) 60 mg Q6HR GT 10/04/19 18:00 11/03/19 17:59 10/08/19 12:34 Docusate Sodium (Colace) 100 mg Q8H GT 09/29/19 08:30 10/29/19 08:29 10/07/19 17:06 Epoetin Gelacio (Epoetin Gelacio(ESRD on dialysis)) 10,000 unit MON-MON-MON SUBQ 09/25/19 21:00 12/24/19 20:59 10/07/19 20:57 Fentanyl Citrate 250 ml @ 0 mls/hr Q24H IV 10/07/19 15:00 10/09/19 12:29 10/09/19 01:01 Haloperidol Lactate (Haldol) 5 mg Q6H PRN IM Agitation 10/08/19 11:00 11/22/19 10:59 10/09/19 08:47 Heparin Sodium (Porcine) (Heparin 5000 units/ml) 5,000 units EVERY 12 HOURS SUBQ 09/17/19 21:00 10/30/19 08:59 10/09/19 08:46 Hydralazine HCl (Apresoline) 10 mg Q4H PRN IV BP over 160 systolic 09/17/19 11:15 12/14/19 11:14 10/04/19 09:04 Insulin Aspart (NovoLOG) Q6HR SUBQ 10/06/19 00:00 01/03/20 20:59 Lactulose (Cephulac) 10 gm THREE TIMES A DAY ORAL 10/03/19 13:00 11/02/19 12:59 10/07/19 17:06 Lansoprazole (Prevacid) 30 mg Q12HR GT 09/27/19 21:00 10/27/19 20:59 10/09/19 08:47 Lisinopril (ZestriL) 10 mg BID GT 10/06/19 18:00 11/03/19 13:29 10/09/19 08:50 Metoclopramide HCl (Reglan) 10 mg Q8H IVP 09/29/19 14:00 10/29/19 13:59 10/09/19 05:16 Metoprolol Tartrate (Lopressor) 50 mg EVERY 12 HOURS GT 10/04/19 21:00 12/14/19 20:59 10/07/19 20:57 Midazolam HCl (Versed 2mg/2ml vial) 1 mg Q4H PRN IVP For Anxiety 09/21/19 09:30 10/14/19 09:29 10/09/19 08:47 Minoxidil (Loniten) 2.5 mg Q6HR PRN GT BP OVER 170 SYST 10/05/19 08:30 12/31/19 13:59 Polyethylene Glycol (Miralax) 17 gm BEDTIME ORAL 10/01/19 21:00 10/31/19 20:59 10/07/19 20:57 Risperidone (RisperDAL) 2 mg BEDTIME ORAL 10/05/19 21:00 11/19/19 20:59 10/08/19 21:11 Sertraline HCl (Zoloft) 100 mg BEDTIME GT 09/17/19 21:00 10/15/19 20:59 10/08/19 21:11 Sorbitol (sorbitoL) 30 ml EVERY 6 HOURS PRN GT Constipation 09/29/19 18:00 10/29/19 17:59 10/01/19 00:44 Tramadol HCl (Ultram) 25 mg Q6H GT 10/07/19 11:00 10/14/19 10:59 10/09/19 05:15 Vitamin B Complex/ Vit C/Folic Acid (Nephrovite) 1 tab DAILY ORAL 10/06/19 09:00 11/05/19 08:59 10/09/19 08:47 Zinc Sulfate (Zinc Sulfate) 220 mg DAILY ORAL 10/06/19 09:00 10/16/19 08:59 10/09/19 08:46 Laboratory Tests 10/08/19 16:40: Urine Color Yellow, Urine Appearance Very cloudy, Urine pH 6.0, Urine Specific [place] 1.015, Urine Protein 4+H, Urine Glucose (UA) Negative, Urine Ketones Negative, Urine Blood 4+H, Urine Nitrite Negative, Urine Bilirubin Negative, Urine Urobilinogen Normal, Urine Leukocyte Esterase 4+H, Urine RBC 60-80H, Urine WBC TntcH, Urine Squamous Epithelial Cells ModerateH, Urine Bacteria ManyH , Urine Yeast FewH 10/09/19 04:00: White Blood Count 6.7, Red Blood Count 3.36L, Hemoglobin 10.3L, Hematocrit 32.0L , Mean Corpuscular Volume 95, Mean Corpuscular Hemoglobin 30.5, Mean Corpuscular Hemoglobin Concent 32.1, Red Cell Distribution Width 14.1, Platelet Count 432, Mean Platelet Volume 5.8L, Neutrophils (%) (Auto) 75.5H, Lymphocytes (%) (Auto) 17.2L, Monocytes (%) (Auto) 5.7, Eosinophils (%) (Auto) 0.4, Basophils (%) (Auto) 1.3, Sodium Level 134L, Potassium Level 4.2, Chloride Level 99, Carbon Dioxide Level 23, Anion Gap 12, Blood Urea Nitrogen 68H, Creatinine 2.9H, Estimat Glomerular Filtration Rate 17.4, Glucose Level 92, Calcium Level 9.0, Total Bilirubin 0.4, Aspartate Amino Transf (AST/SGOT) 25, Alanine Aminotransferase (ALT/SGPT) 8L, Alkaline Phosphatase 167H, Total Protein 7.3, Albumin 1.6L, Globulin 5.7, Albumin/Globulin Ratio 0.3L Height (Feet): 5 Height (Inches): 5.00 Weight (Pounds): 141 General Appearance: no apparent distress EENT: other - On mechanical ventilation Cardiovascular: normal rate, bradycardia Respiratory/Chest: decreased breath sounds Abdomen: distended Objective No change Johnny Houston MD Oct 09, 2019 10:26
--- NOTE | 2019-10-09 11:11 | General Progress Note ---
Assessment/Plan Problem List: (1) S/P aortic dissection repair ICD Codes: Z98.890 - Other specified postprocedural states SNOMED: 188050904, 448817842 (2) Sacral decubitus ulcer, stage IV ICD Codes: L89.154 - Pressure ulcer of sacral region, stage 4 SNOMED: 537323586, 830307013 (3) Anemia ICD Codes: D64.9 - Anemia, unspecified SNOMED: 339586467 (4) GT CLOGGED (5) Feeding by G-tube ICD Codes: Z93.1 - Gastrostomy status SNOMED: 335009341, 453807434 (6) Tracheostomy in place ICD Codes: Z93.0 - Tracheostomy status SNOMED: 257799807 (7) Pacemaker ICD Codes: Z95.0 - Presence of cardiac pacemaker SNOMED: 501380652 (8) Chronic respiratory failure ICD Codes: J96.10 - Chronic respiratory failure, unspecified whether with hypoxia or hypercapnia SNOMED: 44443211 Assessment/Plan: GTF GT balloon fied at the beside today D/W the nurse at the bedside monitor for residuals repeat labs ICU care on lactulose Subjective ROS Limited/Unobtainable: No Allergies: Coded Allergies: No Known Allergies (Unverified , 10/10/17) Objective Last 24 Hour Vital Signs Date Time Temp Pulse Resp B/P (MAP) Pulse Ox O2 Delivery O2 Flow Rate FiO2 10/09/19 10:58 73 20 40 10/09/19 10:30 73 22 186/87 (120) 84 10/09/19 10:00 77 24 191/81 (117) 93 10/09/19 09:30 69 20 183/75 (111) 98 10/09/19 09:26 63 20 40 10/09/19 09:00 69 21 162/71 (101) 99 10/09/19 08:50 171/73 10/09/19 08:50 58 140/60 10/09/19 08:30 67 15 156/65 (95) 99 10/09/19 08:00 67 10/09/19 08:00 45 10/09/19 08:00 97.9 72 14 191/77 (115) 98 10/09/19 08:00 Mechanical Ventilator Mechanical Ventilator 10/09/19 07:31 64 21 100 Mechanical Ventilator 45 59 20 45 10/09/19 07:30 61 20 176/69 (104) 100 10/09/19 07:00 66 20 171/73 (105) 97 10/09/19 07:00 20 171/73 Mechanical Ventilator 45 10/09/19 06:45 64 22 166/72 (103) 96 10/09/19 06:30 66 22 155/69 (97) 97 10/09/19 06:15 62 19 160/64 (96) 98 10/09/19 06:00 20 156/59 Mechanical Ventilator 45 10/09/19 06:00 54 20 156/59 (91) 95 10/09/19 05:45 53 20 139/59 (85) 97 10/09/19 05:30 54 20 147/60 (89) 97 10/09/19 05:15 62 17 161/61 (94) 100 10/09/19 05:15 58 152/66 10/09/19 05:02 55 21 45 10/09/19 05:00 20 152/66 Mechanical Ventilator 45 10/09/19 05:00 54 20 152/66 (94) 96 10/09/19 04:45 57 19 152/67 (95) 97 10/09/19 04:30 55 20 159/65 (96) 96 10/09/19 04:15 54 19 144/62 (89) 96 10/09/19 04:00 45 10/09/19 04:00 98.5 54 19 153/65 (94) 97 10/09/19 04:00 Mechanical Ventilator Mechanical Ventilator 10/09/19 04:00 19 153/65 Mechanical Ventilator 45 10/09/19 03:45 55 20 140/65 (90) 96 10/09/19 03:30 61 19 156/62 (93) 97 10/09/19 03:15 61 24 155/61 (92) 97 10/09/19 03:00 61 10/09/19 03:00 62 22 164/63 (96) 97 10/09/19 03:00 22 164/63 Mechanical Ventilator 45 10/09/19 02:45 56 20 143/59 (87) 96 10/09/19 02:35 58 22 45 10/09/19 02:30 53 20 145/59 (87) 96 10/09/19 02:15 53 17 145/59 (87) 97 10/09/19 02:12 53 13 135/58 (83) 96 10/09/19 02:00 53 12 132/56 (81) 96 10/09/19 02:00 19 125/55 Mechanical Ventilator 45 10/09/19 01:45 54 18 131/57 (81) 96 10/09/19 01:30 58 20 143/65 (91) 96 10/09/19 01:15 58 20 125/55 (78) 97 10/09/19 01:01 59 20 98 Mechanical Ventilator 45 61 20 45 10/09/19 01:01 57 118/54 Mechanical Ventilator 45 10/09/19 01:00 61 20 137/64 (88) 98 10/09/19 00:45 53 20 118/54 (75) 98 10/09/19 00:30 55 20 116/51 (72) 97 10/09/19 00:15 58 20 123/52 (75) 97 10/09/19 00:00 Mechanical Ventilator Mechanical Ventilator 10/09/19 00:00 97.9 58 20 119/52 (74) 97 10/08/19 23:49 59 10/08/19 23:47 57 119/52 10/08/19 23:45 58 20 124/47 (72) 97 10/08/19 23:30 56 20 119/52 (74) 95 10/08/19 23:15 56 20 122/53 (76) 95 10/08/19 23:08 20 122/53 Mechanical Ventilator 45 10/08/19 23:00 58 20 126/54 (78) 97 10/08/19 23:00 20 122/53 Mechanical Ventilator 45 10/08/19 22:45 60 20 144/59 (87) 96 10/08/19 22:37 54 20 45 10/08/19 22:30 20 144/59 Mechanical Ventilator 45 10/08/19 22:30 54 20 114/58 (76) 97 10/08/19 22:15 54 20 126/54 (78) 95 10/08/19 22:00 54 20 124/54 (77) 95 10/08/19 22:00 20 126/54 Mechanical Ventilator 45 10/08/19 21:45 54 20 123/53 (76) 96 10/08/19 21:30 54 123/53 Mechanical Ventilator 45 8/25/20 21:30 56 20 128/56 (80) 96 10/08/19 21:15 64 19 148/57 (87) 98 10/08/19 21:00 20 148/57 Mechanical Ventilator 45 10/08/19 21:00 54 136/58 8 21:00 56 19 136/58 (84) 97 10/08/19 20:49 56 20 45 10/08/19 20:45 56 20 139/101 (114) 96 10/08/19 20:30 55 22 132/60 (84) 96 10/08/19 20:15 56 23 136/61 (86) 96 10/08/19 20:00 62 10/08/19 20:00 98.1 55 22 137/58 (84) 97 10/08/19 20:00 Mechanical Ventilator Mechanical Ventilator 10/08/19 20:00 45 10/08/19 20:00 20 136/61 Mechanical Ventilator 45 10/08/19 19:30 55 21 127/56 (79) 97 10/08/19 19:00 98.4 57 26 141/60 (87) 99 10/08/19 19:00 16 127/56 Mechanical Ventilator 45 10/08/19 18:48 56 20 99 Mechanical Ventilator 60.0 45 54 20 45 10/08/19 18:47 131/60 10/08/19 18:31 57 19 131/60 (83) 97 10/08/19 18:00 18 126/56 Mechanical Ventilator 45 10/08/19 18:00 55 120/54 10/08/19 18:00 55 20 122/54 (76) 97 10/08/19 17:30 55 21 119/56 (77) 97 10/08/19 17:00 56 22 117/51 (73) 97 10/08/19 17:00 18 126/56 Mechanical Ventilator 45 10/08/19 16:30 60 20 122/52 (75) 95 10/08/19 16:00 50 10/08/19 16:00 63 23 119/50 (73) 95 10/08/19 16:00 Mechanical Ventilator Mechanical Ventilator 10/08/19 16:00 16 129/73 Mechanical Ventilator 50 10/08/19 16:00 60 10/08/19 15:30 64 22 143/56 (85) 95 10/08/19 15:29 63 20 1 45 10/08/19 15:00 68 24 135/57 (83) 96 10/08/19 15:00 20 130/80 Mechanical Ventilator 50 10/08/19 14:30 66 18 137/55 (82) 96 10/08/19 14:00 69 23 150/62 (91) 99 10/08/19 14:00 23 154/63 Mechanical Ventilator 60 10/08/19 13:44 75 21 100 Mechanical Ventilator 50 75 25 60 10/08/19 13:30 87 27 190/81 (117) 98 10/08/19 13:00 22 172/71 Mechanical Ventilator 60 10/08/19 13:00 80 24 149/59 (89) 90 10/08/19 12:34 21 170/74 Mechanical Ventilator 50.0 60 10/08/19 12:34 78 170/74 10/08/19 12:33 22 149/59 Mechanical Ventilator 60 10/08/19 12:30 84 18 164/61 (95) 93 10/08/19 12:00 60 10/08/19 12:00 78 10/08/19 12:00 77 23 172/65 (100) 99 10/08/19 12:00 Mechanical Ventilator Mechanical Ventilator 10/08/19 11:30 79 26 168/59 (95) 96 Intake and Output 10/08/19 10/09/19 19:00 07:00 Intake Total 963.0 ml 742.3 ml Output Total 40 ml 120 ml Balance 923.0 ml 622.3 ml Intake Free Water 200 ml 200 ml IV Total 253.0 ml 142.3 ml Tube Feeding 480 ml 400 ml Other 30 ml Output Urine Total 40 ml 120 ml # Bowel Movements 3 Laboratory Tests 10/08/19 16:40: Urine Color Yellow, Urine Appearance Very cloudy, Urine pH 6.0, Urine Specific [place] 1.015, Urine Protein 4+H, Urine Glucose (UA) Negative, Urine Ketones Negative, Urine Blood 4+H, Urine Nitrite Negative, Urine Bilirubin Negative, Urine Urobilinogen Normal, Urine Leukocyte Esterase 4+H, Urine RBC 60-80H, Urine WBC TntcH, Urine Squamous Epithelial Cells ModerateH, Urine Bacteria ManyH , Urine Yeast FewH 10/09/19 04:00: White Blood Count 6.7, Red Blood Count 3.36L, Hemoglobin 10.3L, Hematocrit 32.0L , Mean Corpuscular Volume 95, Mean Corpuscular Hemoglobin 30.5, Mean Corpuscular Hemoglobin Concent 32.1, Red Cell Distribution Width 14.1, Platelet Count 432, Mean Platelet Volume 5.8L, Neutrophils (%) (Auto) 75.5H, Lymphocytes (%) (Auto) 17.2L, Monocytes (%) (Auto) 5.7, Eosinophils (%) (Auto) 0.4, Basophils (%) (Auto) 1.3, Sodium Level 134L, Potassium Level 4.2, Chloride Level 99, Carbon Dioxide Level 23, Anion Gap 12, Blood Urea Nitrogen 68H, Creatinine 2.9H, Estimat Glomerular Filtration Rate 17.4, Glucose Level 92, Calcium Level 9.0, Total Bilirubin 0.4, Aspartate Amino Transf (AST/SGOT) 25, Alanine Aminotransferase (ALT/SGPT) 8L, Alkaline Phosphatase 167H, Total Protein 7.3, Albumin 1.6L, Globulin 5.7, Albumin/Globulin Ratio 0.3L Height (Feet): 5 Height (Inches): 5.00 Weight (Pounds): 141 General Appearance: no apparent distress EENT: normal ENT inspection Neck: supple Cardiovascular: normal rate Respiratory/Chest: decreased breath sounds Abdomen: hypoactive bowel sounds Extremities: non-tender Inder Mccauley MD Oct 09, 2019 11:11
--- NOTE | 2019-10-09 11:38 | Infectious Diseases Prog Note ---
Assessment/Plan 49yo F with: Acute hypoxic resp failure: Now on vent, worsening, FiO2 100% > 80% 09/27 > 60% >40% 10/08 Pneumonia, COVID19 neg x3 - MDR PsA pneumonia,s pr x 10/07 CXR: Bilateral infiltrates versus edema, left greater than right pleural effusions are again demonstrated, unchanged. There is slightly better inspiration currently. 09/29 CXR: Bilateral edema versus infiltrates appears slightly worse than on the prior study. There is probably some pleural fluid on the left. 09/26 S/P thoracentesis, 900cc removed, only 67 WBC in fluid analysis, unlikely empyema 09/26 CXR: Worsening R perihilar opacity 09/26 BCx NTD 09/24 CXR: Previously demonstrated right lateral basilar lucency is no longer evident, was presumably a skin fold artifact. Bilateral infiltrates and left pleural effusion are probably unchanged allowing for slight differences in technique. 09/22 Resp cx + MDR PsA (S-gent; I-colistin; R-levofloxacin, Zosyn, angelo) 09/22 BCx NTD 09/22 CXR: worsening BL pna 09/22 UA w/ persistent pyuria, now on HD, UCx +VRE, most likely colonizer as improving wo tx for this 09/19 V/Q scan, low probability of PE 09/18 Rapid COVID PCR neg 09/18 CT chest: Markedly suboptimal examination due to lack of IV contrast material. Bilateral pleural effusions, right greater than left, with bilateral lower lobe consolidation or volume loss. Ground glass densities in the upper lobes bilaterally. This is not specific. Tracheostomy. Increased superior mediastinal density. Stability of adenopathy cannot be excluded. Atherosclerotic change. Gastrostomy. Ascites. Left renal stent with left hydronephrosis and renal atrophy. 09/17 Chest US: Trace right and small left pleural effusions. No safe window identified for bedside thoracentesis. Note that the majority of the left pleural effusion is subpulmonic. 09/16 CXR: Worsening of right lung infiltrates and right effusion. V. duplex: NO DVT D-dimer elevated 09/15 Rapid COVID PCR neg 09/15 Sp cx ESBL P. mirablis 09/14 CXR: Bilateral airspace opacities, preferentially involving the right lung, consistent with multifocal infiltrate. Trace bilateral pleural effusions. No pneumothorax. Rapid COVID PCR neg Urine legionella neg 09/16 GPC bacteremia, real vs contaminant; does have hx of infected PPM- could be a possibility- ro endocarditis 09/14 Bcx 03/19 S. epidermis; 09/15 Bcx NTD 2d echo: no vegetations seen UTI, sp rx 8/ u/a wbc tnct, nit neg, leuk +3; ucx >100k MDR P. stuarti (S Ceftriaxone, Meropenem) 09/22 UA w/ ongoing pyuria, unchanged 10/07 u/a wbc tnct, nit neg, leuk Unstageable sacral ulceration Afebrile Leukocytosis, mild; fluctuates bt -- SP JAVIER on CKD --> now on HD Renal US: Limited exam due to abdominal ascites and shadowing from bowel gas. CT recommended for more sensitive evaluation. Moderate right hydronephrosis. Increased renal parenchymal echogenicity suggesting intrinsic/ medical renal disease. Question indwelling left ureteral stent versus artifact. Bladder not visualized. 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 epi-11/2018, sp > 6weeks IV vancomycin 11/27 SP ABBIE: no evidence for vegetation on any of the valves 11/26/18 SP PPM removal: OR findings:The fibrous capsule enclosing the generator was then opened and there was a [id number] amount of yellowish fluid drainage. The generator was then removed.Atrial and ventricular leads were detached. The necrotic tissue of the pocket was then removed and the pocket was flushed with an antibiotic solution. Capsule, wound tissue and lead tip cx: Neg 2d echo: no vegetation seen US chest: 4.6 x 3.4 x 0.9 cm hypoechoic/anechoic area overlying left chest pacemaker power pack. This could represent either a discrete fluid collection or a focal area of very edematous tissue. Infected fluid pocket also possible. 11/18 Bcx 3/4 S. epi; 11/20 Bcx neg; 11/24 Bcx Neg; 11/27 Bcx Neg Hx of PNA 11/2019? sp cx PsA (arnett S), ABC (I Ceftriaxone; otherwise negative) Sp cx MRSA, ABC (I Ceftriaxone; otherwise S) PMH: Afib HTN Dysphagia sp GT Aortic dissection s/p repair 2017, S/p PPM Parkinson's Disease Schizophrenia Anxiety COPD Chronic resp failure s/p trach Hx of tracheal bleeding ID resident ([facility]) Plan: Cont to monitor off abx unless febrile, recurrent leukocytosis -f/u ucx Trend resp status, leukocytosis 10/03 SP Zerbaxa #6, gent #7 for MDR PsA pna 09/29 SP vanco #15 for S.epi in BCx 09/27 SP angelo #13 8 SP Cefepime #3, Levaquin #3 Monitor CBC/CMP, temperatures ICU/ trach/ peg care Aspiration precautions D/w RN Thank you for this consultation. Will continue to follow along with you. Subjective Allergies: Coded Allergies: No Known Allergies (Unverified , 10/10/17) afebrile mild leukocytosis resolved Fio2 down to 40% off abx Objective Last 24 Hour Vital Signs Date Time Temp Pulse Resp B/P (MAP) Pulse Ox O2 Delivery O2 Flow Rate FiO2 10/09/19 10:58 73 20 40 10/09/19 10:30 73 22 186/87 (120) 84 10/09/19 10:00 77 24 191/81 (117) 93 10/09/19 09:30 69 20 183/75 (111) 98 10/09/19 09:26 63 20 40 10/09/19 09:00 69 21 162/71 (101) 99 10/09/19 08:50 171/73 10/09/19 08:50 58 140/60 10/09/19 08:30 67 15 156/65 (95) 99 10/09/19 08:00 67 10/09/19 08:00 45 10/09/19 08:00 97.9 72 14 191/77 (115) 98 10/09/19 08:00 Mechanical Ventilator Mechanical Ventilator 10/09/19 07:31 64 21 100 Mechanical Ventilator 45 59 20 45 10/09/19 07:30 61 20 176/69 (104) 100 10/09/19 07:00 66 20 171/73 (105) 97 10/09/19 07:00 20 171/73 Mechanical Ventilator 45 10/09/19 06:45 64 22 166/72 (103) 96 10/09/19 06:30 66 22 155/69 (97) 97 10/09/19 06:15 62 19 160/64 (96) 98 10/09/19 06:00 20 156/59 Mechanical Ventilator 45 10/09/19 06:00 54 20 156/59 (91) 95 10/09/19 05:45 53 20 139/59 (85) 97 10/09/19 05:30 54 20 147/60 (89) 97 10/09/19 05:15 62 17 161/61 (94) 100 10/09/19 05:15 58 152/66 10/09/19 05:02 55 21 45 10/09/19 05:00 20 152/66 Mechanical Ventilator 45 10/09/19 05:00 54 20 152/66 (94) 96 10/09/19 04:45 57 19 152/67 (95) 97 10/09/19 04:30 55 20 159/65 (96) 96 10/09/19 04:15 54 19 144/62 (89) 96 10/09/19 04:00 45 10/09/19 04:00 98.5 54 19 153/65 (94) 97 10/09/19 04:00 Mechanical Ventilator Mechanical Ventilator 10/09/19 04:00 19 153/65 Mechanical Ventilator 45 10/09/19 03:45 55 20 140/65 (90) 96 10/09/19 03:30 61 19 156/62 (93) 97 10/09/19 03:15 61 24 155/61 (92) 97 10/09/19 03:00 61 10/09/19 03:00 62 22 164/63 (96) 97 10/09/19 03:00 22 164/63 Mechanical Ventilator 45 10/09/19 02:45 56 20 143/59 (87) 96 10/09/19 02:35 58 22 45 10/09/19 02:30 53 20 145/59 (87) 96 10/09/19 02:15 53 17 145/59 (87) 97 10/09/19 02:12 53 13 135/58 (83) 96 10/09/19 02:00 53 12 132/56 (81) 96 10/09/19 02:00 19 125/55 Mechanical Ventilator 45 10/09/19 01:45 54 18 131/57 (81) 96 10/09/19 01:30 58 20 143/65 (91) 96 10/09/19 01:15 58 20 125/55 (78) 97 10/09/19 01:01 59 20 98 Mechanical Ventilator 45 61 20 45 10/09/19 01:01 57 118/54 Mechanical Ventilator 45 10/09/19 01:00 61 20 137/64 (88) 98 10/09/19 00:45 53 20 118/54 (75) 98 10/09/19 00:30 55 20 116/51 (72) 97 10/09/19 00:15 58 20 123/52 (75) 97 10/09/19 00:00 Mechanical Ventilator Mechanical Ventilator 10/09/19 00:00 97.9 58 20 119/52 (74) 97 10/08/19 23:49 59 10/08/19 23:47 57 119/52 10/08/19 23:45 58 20 124/47 (72) 97 10/08/19 23:30 56 20 119/52 (74) 95 10/08/19 23:15 56 20 122/53 (76) 95 10/08/19 23:08 20 122/53 Mechanical Ventilator 45 10/08/19 23:00 58 20 126/54 (78) 97 10/08/19 23:00 20 122/53 Mechanical Ventilator 45 10/08/19 22:45 60 20 144/59 (87) 96 10/08/19 22:37 54 20 45 10/08/19 22:30 20 144/59 Mechanical Ventilator 45 10/08/19 22:30 54 20 114/58 (76) 97 10/08/19 22:15 54 20 126/54 (78) 95 10/08/19 22:00 54 20 124/54 (77) 95 10/08/19 22:00 20 126/54 Mechanical Ventilator 45 10/08/19 21:45 54 20 123/53 (76) 96 10/08/19 21:30 54 123/53 Mechanical Ventilator 45 10/08/19 21:30 56 20 128/56 (80) 96 10/08/19 21:15 64 19 148/57 (87) 98 10/08/19 21:00 20 148/57 Mechanical Ventilator 45 10/08/19 21:00 54 136/58 10/08/19 21:00 56 19 136/58 (84) 97 10/08/19 20:49 56 20 45 10/08/19 20:45 56 20 139/101 (114) 96 10/08/19 20:30 55 22 132/60 (84) 96 10/08/19 20:15 56 23 136/61 (86) 96 10/08/19 20:00 62 10/08/19 20:00 98.1 55 22 137/58 (84) 97 10/08/19 20:00 Mechanical Ventilator Mechanical Ventilator 10/08/19 20:00 45 10/08/19 20:00 20 136/61 Mechanical Ventilator 45 10/08/19 19:30 55 21 127/56 (79) 97 10/08/19 19:00 98.4 57 26 141/60 (87) 99 10/08/19 19:00 16 127/56 Mechanical Ventilator 45 10/08/19 18:48 56 20 99 Mechanical Ventilator 60.0 45 54 20 45 10/08/19 18:47 131/60 10/08/19 18:31 57 19 131/60 (83) 97 10/08/19 18:00 18 126/56 Mechanical Ventilator 45 10/08/19 18:00 55 120/54 10/08/19 18:00 55 20 122/54 (76) 97 10/08/19 17:30 55 21 119/56 (77) 97 10/08/19 17:00 56 22 117/51 (73) 97 10/08/19 17:00 18 126/56 Mechanical Ventilator 45 10/08/19 16:30 60 20 122/52 (75) 95 10/08/19 16:00 50 10/08/19 16:00 63 23 119/50 (73) 95 10/08/19 16:00 Mechanical Ventilator Mechanical Ventilator 10/08/19 16:00 16 129/73 Mechanical Ventilator 50 10/08/19 16:00 60 10/08/19 15:30 64 22 143/56 (85) 95 10/08/19 15:29 63 20 1 45 10/08/19 15:00 68 24 135/57 (83) 96 10/08/19 15:00 20 130/80 Mechanical Ventilator 50 10/08/19 14:30 66 18 137/55 (82) 96 10/08/19 14:00 69 23 150/62 (91) 99 10/08/19 14:00 23 154/63 Mechanical Ventilator 60 10/08/19 13:44 75 21 100 Mechanical Ventilator 50 75 25 60 10/08/19 13:30 87 27 190/81 (117) 98 10/08/19 13:00 22 172/71 Mechanical Ventilator 60 10/08/19 13:00 80 24 149/59 (89) 90 10/08/19 12:34 21 170/74 Mechanical Ventilator 50.0 60 10/08/19 12:34 78 170/74 10/08/19 12:33 22 149/59 Mechanical Ventilator 60 10/08/19 12:30 84 18 164/61 (95) 93 10/08/19 12:00 60 10/08/19 12:00 78 10/08/19 12:00 77 23 172/65 (100) 99 10/08/19 12:00 Mechanical Ventilator Mechanical Ventilator 10/08/19 11:30 79 26 168/59 (95) 96 Height (Feet): 5 Height (Inches): 5.00 Weight (Pounds): 141 Cardiovascular: RrR Respiratory: decreased breath sounds Abdomen: soft, non-tender, present bowel sounds Extremities: no edema, no tenderness, no cyanosis Laboratory Tests Test 10/08/19 16:40 10/09/19 04:00 Urine Color Yellow Urine Appearance Very cloudy Urine pH 6.0 (4.5-8.0) Urine Specific Gay 1.015 (1.005-1.035) Urine Protein 4+ (NEGATIVE) H Urine Glucose (UA) Negative (NEGATIVE) Urine Ketones Negative (NEGATIVE) Urine Blood 4+ (NEGATIVE) H Urine Nitrite Negative (NEGATIVE) Urine Bilirubin Negative (NEGATIVE) Urine Urobilinogen Normal MG/DL (0.0-1.0) Urine Leukocyte Esterase 4+ (NEGATIVE) H Urine RBC 60-80 /HPF (0 - 2) H Urine WBC Tntc /HPF (0 - 2) H Urine Squamous Epithelial Cells Moderate /LPF (NONE/OCC) H Urine Bacteria Many /HPF (NONE) H Urine Yeast Few /HPF (NONE) H White Blood Count 6.7 K/UL (4.8-10.8) Red Blood Count 3.36 M/UL (4.20-5.40) L Hemoglobin 10.3 G/DL (12.0-16.0) L Hematocrit 32.0 % (37.0-47.0) L Mean Corpuscular Volume 95 FL (80-99) Mean Corpuscular Hemoglobin 30.5 PG (27.0-31.0) Mean Corpuscular Hemoglobin Concent 32.1 G/DL (32.0-36.0) Red Cell Distribution Width 14.1 % (11.6-14.8) Platelet Count 432 K/UL (150-450) Mean Platelet Volume 5.8 FL (6.5-10.1) L Neutrophils (%) (Auto) 75.5 % (45.0-75.0) H Lymphocytes (%) (Auto) 17.2 % (20.0-45.0) L Monocytes (%) (Auto) 5.7 % (1.0-10.0) Eosinophils (%) (Auto) 0.4 % (0.0-3.0) Basophils (%) (Auto) 1.3 % (0.0-2.0) Sodium Level 134 MMOL/L (136-145) L Potassium Level 4.2 MMOL/L (3.5-5.1) Chloride Level 99 MMOL/L (98-107) Carbon Dioxide Level 23 MMOL/L (21-32) Anion Gap 12 mmol/L (5-15) Blood Urea Nitrogen 68 mg/dL (7-18) H Creatinine 2.9 MG/DL (0.55-1.30) H Estimat Glomerular Filtration Rate 17.4 mL/min (>60) Glucose Level 92 MG/DL (74-106) Calcium Level 9.0 MG/DL (8.5-10.1) Total Bilirubin 0.4 MG/DL (0.2-1.0) Aspartate Amino Transf (AST/SGOT) 25 U/L (15-37) Alanine Aminotransferase (ALT/SGPT) 8 U/L (12-78) L Alkaline Phosphatase 167 U/L (46-116) H Total Protein 7.3 G/DL (6.4-8.2) Albumin 1.6 G/DL (3.4-5.0) L Globulin 5.7 g/dL Albumin/Globulin Ratio 0.3 (1.0-2.7) L Current Medications Medications (Trade) Dose Ordered Sig/Penny Route PRN Reason Start Time Stop Time Status Last Admin Dose Admin Acetaminophen (Tylenol) 325 mg Q6H PRN GT Temp >100.5 09/23/19 10:45 10/23/19 10:44 09/23/19 18:55 Albuterol/ Ipratropium (Albuterol/ Ipratropium) 3 ml Q6HRT HHN 10/09/19 13:00 10/14/19 12:59 Ascorbic Acid (Vitamin C) 500 mg DAILY ORAL 10/06/19 09:00 11/05/19 08:59 10/09/19 08:46 Chlorhexidine Gluconate (Ling-Hex 2%) 1 applic DAILY@2000 TOPIC 09/23/19 20:00 12/22/19 19:59 10/08/19 21:11 Dextrose (Dextrose 50%) 25 ml Q30M PRN IV Hypoglycemia 10/05/19 18:30 01/03/20 18:29 Dextrose (Dextrose 50%) 50 ml Q30M PRN IV Hypoglycemia 10/05/19 18:30 01/03/20 18:29 Diltiazem HCl (Cardizem Tab) 60 mg Q6HR GT 10/04/19 18:00 11/03/19 17:59 10/08/19 12:34 Docusate Sodium (Colace) 100 mg Q8H GT 09/29/19 08:30 10/29/19 08:29 10/07/19 17:06 Epoetin Gelacio (Epoetin Gelacio(ESRD on dialysis)) 10,000 unit MON-MON-MON SUBQ 09/25/19 21:00 12/24/19 20:59 10/07/19 20:57 Fentanyl Citrate 250 ml @ 0 mls/hr Q24H IV 10/07/19 15:00 10/09/19 12:29 10/09/19 01:01 Haloperidol Lactate (Haldol) 5 mg Q6H PRN IM Agitation 10/08/19 11:00 11/22/19 10:59 10/09/19 08:47 Heparin Sodium (Porcine) (Heparin 5000 units/ml) 5,000 units EVERY 12 HOURS SUBQ 09/17/19 21:00 10/30/19 08:59 10/09/19 08:46 Hydralazine HCl (Apresoline) 10 mg Q4H PRN IV BP over 160 systolic 09/17/19 11:15 12/14/19 11:14 10/04/19 09:04 Insulin Aspart (NovoLOG) Q6HR SUBQ 10/06/19 00:00 01/03/20 20:59 Lactulose (Cephulac) 10 gm THREE TIMES A DAY ORAL 10/03/19 13:00 11/02/19 12:59 10/07/19 17:06 Lansoprazole (Prevacid) 30 mg Q12HR GT 09/27/19 21:00 10/27/19 20:59 10/09/19 08:47 Lisinopril (PriniviL) 20 mg BID GT 10/09/19 18:00 11/08/19 17:59 Metoclopramide HCl (Reglan) 5 mg EVERY 6 HOURS GT 10/09/19 12:00 11/08/19 11:59 Metoprolol Tartrate (Lopressor) 25 mg Q12HR GT 10/09/19 21:00 01/07/20 20:59 Midazolam HCl (Versed 2mg/2ml vial) 1 mg Q4H PRN IVP For Anxiety 09/21/19 09:30 10/14/19 09:29 10/09/19 08:47 Morphine Sulfate (Morphine Sulfate) 2 mg Q4H PRN IVP For Pain 10/09/19 11:00 10/16/19 10:59 Polyethylene Glycol (Miralax) 17 gm BEDTIME ORAL 10/01/19 21:00 10/31/19 20:59 10/07/19 20:57 Risperidone (RisperDAL) 2 mg BEDTIME ORAL 10/05/19 21:00 11/19/19 20:59 10/08/19 21:11 Sertraline HCl (Zoloft) 100 mg BEDTIME GT 09/17/19 21:00 10/15/19 20:59 10/08/19 21:11 Sorbitol (sorbitoL) 30 ml EVERY 6 HOURS PRN GT Constipation 09/29/19 18:00 10/29/19 17:59 10/01/19 00:44 Tramadol HCl (Ultram) 25 mg Q6H GT 10/07/19 11:00 10/14/19 10:59 10/09/19 05:15 Vitamin B Complex/ Vit C/Folic Acid (Nephrovite) 1 tab DAILY ORAL 10/06/19 09:00 11/05/19 08:59 10/09/19 08:47 Zinc Sulfate (Zinc Sulfate) 220 mg DAILY ORAL 10/06/19 09:00 10/16/19 08:59 10/09/19 08:46 Doreen Nino M.D. Oct 09, 2019 11:38
[2019-10-09] MEDS: Metoclopramide 10mg/10ml Liq GT SCH ×2 (11:52→16:50)
[2019-10-09] MEDS: Morphine Sulfate 2mg/ml Inj(IV/IM USE ONLY) IVP PRN ×3 (11:52→20:55)
[2019-10-09] MEDS ORDERED: fentaNYL 2500mcg/NS 250ml 250 ML IV SCH (12:30)
--- NOTE | 2019-10-09 13:00 | Diagnostic Imaging Report ---
Indication: Cough Technique: One view of the chest Comparison: 10/08/2019 Findings: Dialysis catheter, tracheostomy remain. Left pleural effusion persists. Hazy right basilar haziness may reflect overlying soft tissue or could indicate some pleural fluid and/or consolidation, as well. Appearance of this is unchanged. Impression: Unchanged, over one day, findings as above.
--- NOTE | 2019-10-09 13:01 | Surgery Progress Note ---
Surgery Progress Note Subjective Symptoms: other Additional Comments with sedation becoming more comfortable no n/v labs noted exam stable Objective Last 24 Hour Vital Signs Date Time Temp Pulse Resp B/P (MAP) Pulse Ox O2 Delivery O2 Flow Rate FiO2 10/09/19 12:50 71 21 100 Mechanical Ventilator 40 77 23 40 10/09/19 12:30 23 180/77 Mechanical Ventilator 45 10/09/19 12:22 97.9 10/09/19 12:22 97.9 10/09/19 12:00 45 10/09/19 12:00 98.0 75 24 183/80 (114) 96 10/09/19 12:00 23 180/77 Mechanical Ventilator 45 10/09/19 11:52 73 193/89 10/09/19 11:30 76 26 192/82 (118) 97 10/09/19 11:00 24 193/89 Mechanical Ventilator 45 10/09/19 11:00 72 27 193/75 (114) 98 10/09/19 10:58 73 20 40 10/09/19 10:30 73 22 186/87 (120) 84 10/09/19 10:00 77 24 191/81 (117) 93 10/09/19 10:00 20 170/77 Mechanical Ventilator 45 10/09/19 09:30 69 20 183/75 (111) 98 10/09/19 09:26 63 20 40 10/09/19 09:00 69 21 162/71 (101) 99 10/09/19 09:00 20 180/71 Mechanical Ventilator 45 10/09/19 08:50 171/73 10/09/19 08:50 58 140/60 10/09/19 08:30 67 15 156/65 (95) 99 10/09/19 08:00 67 10/09/19 08:00 19 191/77 Mechanical Ventilator 45 10/09/19 08:00 45 10/09/19 08:00 97.9 72 14 191/77 (115) 98 10/09/19 08:00 Mechanical Ventilator Mechanical Ventilator 10/09/19 07:31 64 21 100 Mechanical Ventilator 45 59 20 45 10/09/19 07:30 61 20 176/69 (104) 100 10/09/19 07:00 66 20 171/73 (105) 97 10/09/19 07:00 20 171/73 Mechanical Ventilator 45 10/09/19 06:45 64 22 166/72 (103) 96 10/09/19 06:30 66 22 155/69 (97) 97 10/09/19 06:15 62 19 160/64 (96) 98 10/09/19 06:00 20 156/59 Mechanical Ventilator 45 10/09/19 06:00 54 20 156/59 (91) 95 10/09/19 05:45 53 20 139/59 (85) 97 10/09/19 05:30 54 20 147/60 (89) 97 10/09/19 05:15 62 17 161/61 (94) 100 10/09/19 05:15 58 152/66 10/09/19 05:02 55 21 45 10/09/19 05:00 20 152/66 Mechanical Ventilator 45 10/09/19 05:00 54 20 152/66 (94) 96 10/09/19 04:45 57 19 152/67 (95) 97 10/09/19 04:30 55 20 159/65 (96) 96 10/09/19 04:15 54 19 144/62 (89) 96 10/09/19 04:00 45 10/09/19 04:00 98.5 54 19 153/65 (94) 97 10/09/19 04:00 Mechanical Ventilator Mechanical Ventilator 10/09/19 04:00 19 153/65 Mechanical Ventilator 45 10/09/19 03:45 55 20 140/65 (90) 96 10/09/19 03:30 61 19 156/62 (93) 97 10/09/19 03:15 61 24 155/61 (92) 97 10/09/19 03:00 61 10/09/19 03:00 62 22 164/63 (96) 97 10/09/19 03:00 22 164/63 Mechanical Ventilator 45 10/09/19 02:45 56 20 143/59 (87) 96 10/09/19 02:35 58 22 45 10/09/19 02:30 53 20 145/59 (87) 96 10/09/19 02:15 53 17 145/59 (87) 97 10/09/19 02:12 53 13 135/58 (83) 96 10/09/19 02:00 53 12 132/56 (81) 96 10/09/19 02:00 19 125/55 Mechanical Ventilator 45 10/09/19 01:45 54 18 131/57 (81) 96 10/09/19 01:30 58 20 143/65 (91) 96 10/09/19 01:15 58 20 125/55 (78) 97 10/09/19 01:01 59 20 98 Mechanical Ventilator 45 61 20 45 10/09/19 01:01 57 118/54 Mechanical Ventilator 45 10/09/19 01:00 61 20 137/64 (88) 98 10/09/19 00:45 53 20 118/54 (75) 98 10/09/19 00:30 55 20 116/51 (72) 97 10/09/19 00:15 58 20 123/52 (75) 97 10/09/19 00:00 Mechanical Ventilator Mechanical Ventilator 10/09/19 00:00 97.9 58 20 119/52 (74) 97 10/08/19 23:49 59 10/08/19 23:47 57 119/52 10/08/19 23:45 58 20 124/47 (72) 97 10/08/19 23:30 56 20 119/52 (74) 95 10/08/19 23:15 56 20 122/53 (76) 95 10/08/19 23:08 20 122/53 Mechanical Ventilator 45 10/08/19 23:00 58 20 126/54 (78) 97 10/08/19 23:00 20 122/53 Mechanical Ventilator 45 10/08/19 22:45 60 20 144/59 (87) 96 10/08/19 22:37 54 20 45 10/08/19 22:30 20 144/59 Mechanical Ventilator 45 10/08/19 22:30 54 20 114/58 (76) 97 10/08/19 22:15 54 20 126/54 (78) 95 10/08/19 22:00 54 20 124/54 (77) 95 10/08/19 22:00 20 126/54 Mechanical Ventilator 45 10/08/19 21:45 54 20 123/53 (76) 96 10/08/19 21:30 54 123/53 Mechanical Ventilator 45 10/08/19 21:30 56 20 128/56 (80) 96 10/08/19 21:15 64 19 148/57 (87) 98 10/08/19 21:00 20 148/57 Mechanical Ventilator 45 10/08/19 21:00 54 136/58 10/08/19 21:00 56 19 136/58 (84) 97 10/08/19 20:49 56 20 45 10/08/19 20:45 56 20 139/101 (114) 96 10/08/19 20:30 55 22 132/60 (84) 96 10/08/19 20:15 56 23 136/61 (86) 96 10/08/19 20:00 62 10/08/19 20:00 98.1 55 22 137/58 (84) 97 10/08/19 20:00 Mechanical Ventilator Mechanical Ventilator 10/08/19 20:00 45 10/08/19 20:00 20 136/61 Mechanical Ventilator 45 10/08/19 19:30 55 21 127/56 (79) 97 10/08/19 19:00 98.4 57 26 141/60 (87) 99 10/08/19 19:00 16 127/56 Mechanical Ventilator 45 10/08/19 18:48 56 20 99 Mechanical Ventilator 60.0 45 54 20 45 10/08/19 18:47 131/60 10/08/19 18:31 57 19 131/60 (83) 97 10/08/19 18:00 18 126/56 Mechanical Ventilator 45 10/08/19 18:00 55 120/54 10/08/19 18:00 55 20 122/54 (76) 97 10/08/19 17:30 55 21 119/56 (77) 97 10/08/19 17:00 56 22 117/51 (73) 97 10/08/19 17:00 18 126/56 Mechanical Ventilator 45 10/08/19 16:30 60 20 122/52 (75) 95 10/08/19 16:00 50 10/08/19 16:00 63 23 119/50 (73) 95 10/08/19 16:00 Mechanical Ventilator Mechanical Ventilator 10/08/19 16:00 16 129/73 Mechanical Ventilator 50 10/08/19 16:00 60 10/08/19 15:30 64 22 143/56 (85) 95 10/08/19 15:29 63 20 1 45 10/08/19 15:00 68 24 135/57 (83) 96 10/08/19 15:00 20 130/80 Mechanical Ventilator 50 10/08/19 14:30 66 18 137/55 (82) 96 10/08/19 14:00 69 23 150/62 (91) 99 10/08/19 14:00 23 154/63 Mechanical Ventilator 60 10/08/19 13:44 75 21 100 Mechanical Ventilator 50 75 25 60 10/08/19 13:30 87 27 190/81 (117) 98 10/08/19 13:00 22 172/71 Mechanical Ventilator 60 10/08/19 13:00 80 24 149/59 (89) 90 I&O Intake and Output 10/08/19 10/09/19 19:00 07:00 Intake Total 963.0 ml 742.3 ml Output Total 40 ml 120 ml Balance 923.0 ml 622.3 ml Intake Free Water 200 ml 200 ml IV Total 253.0 ml 142.3 ml Tube Feeding 480 ml 400 ml Other 30 ml Output Urine Total 40 ml 120 ml # Bowel Movements 3 Dressing: other Wound: other Cardiovascular: RSR Respiratory: decreased breath sounds Abdomen: soft, non-tender, present bowel sounds Extremities: no edema, no tenderness, no cyanosis Laboratory Tests Test 10/08/19 16:40 10/09/19 04:00 Urine Color Yellow Urine Appearance Very cloudy Urine pH 6.0 (4.5-8.0) Urine Specific [place] 1.015 (1.005-1.035) Urine Protein 4+ (NEGATIVE) H Urine Glucose (UA) Negative (NEGATIVE) Urine Ketones Negative (NEGATIVE) Urine Blood 4+ (NEGATIVE) H Urine Nitrite Negative (NEGATIVE) Urine Bilirubin Negative (NEGATIVE) Urine Urobilinogen Normal MG/DL (0.0-1.0) Urine Leukocyte Esterase 4+ (NEGATIVE) H Urine RBC 60-80 /HPF (0 - 2) H Urine WBC Tntc /HPF (0 - 2) H Urine Squamous Epithelial Cells Moderate /LPF (NONE/OCC) H Urine Bacteria Many /HPF (NONE) H Urine Yeast Few /HPF (NONE) H White Blood Count 6.7 K/UL (4.8-10.8) Red Blood Count 3.36 M/UL (4.20-5.40) L Hemoglobin 10.3 G/DL (12.0-16.0) L Hematocrit 32.0 % (37.0-47.0) L Mean Corpuscular Volume 95 FL (80-99) Mean Corpuscular Hemoglobin 30.5 PG (27.0-31.0) Mean Corpuscular Hemoglobin Concent 32.1 G/DL (32.0-36.0) Red Cell Distribution Width 14.1 % (11.6-14.8) Platelet Count 432 K/UL (150-450) Mean Platelet Volume 5.8 FL (6.5-10.1) L Neutrophils (%) (Auto) 75.5 % (45.0-75.0) H Lymphocytes (%) (Auto) 17.2 % (20.0-45.0) L Monocytes (%) (Auto) 5.7 % (1.0-10.0) Eosinophils (%) (Auto) 0.4 % (0.0-3.0) Basophils (%) (Auto) 1.3 % (0.0-2.0) Sodium Level 134 MMOL/L (136-145) L Potassium Level 4.2 MMOL/L (3.5-5.1) Chloride Level 99 MMOL/L (98-107) Carbon Dioxide Level 23 MMOL/L (21-32) Anion Gap 12 mmol/L (5-15) Blood Urea Nitrogen 68 mg/dL (7-18) H Creatinine 2.9 MG/DL (0.55-1.30) H Estimat Glomerular Filtration Rate 17.4 mL/min (>60) Glucose Level 92 MG/DL (74-106) Calcium Level 9.0 MG/DL (8.5-10.1) Total Bilirubin 0.4 MG/DL (0.2-1.0) Aspartate Amino Transf (AST/SGOT) 25 U/L (15-37) Alanine Aminotransferase (ALT/SGPT) 8 U/L (12-78) L Alkaline Phosphatase 167 U/L (46-116) H Total Protein 7.3 G/DL (6.4-8.2) Albumin 1.6 G/DL (3.4-5.0) L Globulin 5.7 g/dL Albumin/Globulin Ratio 0.3 (1.0-2.7) L Plan Problems: (1) Anemia (2) Proteinuria (3) UTI (urinary tract infection) (4) ARF (acute renal failure) (5) ACS (acute coronary syndrome) (6) Respiratory failure, acute and chronic (7) HCAP (healthcare-associated pneumonia) (8) Abrasion of lip, initial encounter (9) COPD with exacerbation (10) Hypokalemia (11) Sepsis Assessment & Plan: Leukocytosis, anemia, abnormal labs. Renal insufficiency potentially dehydrated Abnormal LFTs alk phos elevated Urine noted significant bacteria likely UTI etiology Wound stable still requiring local care IV antibiotics per infectious disease Discussed with bag patcher Dr. Berkowitz air mattress turn q2h nutritional tf will follow with recs thank you CT noted pending VQ scan - noted poor study low prob PE work respiratory increasing needs sedation weaning vent settings 80% peep 10 now comfortable Hd line in receiving HD plan for left thora 09/26 (12) Chronic respiratory failure (13) Ascites (14) Bacteremia (15) Hypernatremia (16) Pleural effusion (17) Pacemaker (18) Aortic dissection, thoracic (19) Tracheostomy in place Assessment & Plan: trach stable no bleeding currently likely tongue etiology of mild oozing currently hemostatic without trauma (20) Feeding by G-tube Assessment & Plan: okay to resume tube feeds via g tube patent and functional dressings okay DAILY ESTIMATED NEEDS: Needs based on Pulmonary, wound 49kg 30-35 kcals/kg 9931-0164 total kcals 1.25-2 g protein/kg 61-98 g total protein Fluid per MD NUTRITION DIAGNOSIS: * Swallowing difficulty R/T dysphagia, respiratory status as evidenced by vent dep via T-collar, GT Dep. (CURRENT TF: Nepro @45ml/hr x 24 hrs) ENTERAL NUTRITION RECOMMENDATIONS: Nepro @ 40ml/hr x 24 hrs to provide 960ml, 1728kcal, 78g prot, 698ml free water * Rec LOWER current rate to 40ml/hr for 24 hrs run. 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 Base of wound is granular with bone exposure at base of sacrococcygeal.(L)10.5cm x (W06.5cm x (D) 2.8cm , undermining 11-3 by 3.6cm @12 o'clock. small amt serosanguineous exudate noted . Ballplay epithelial along edges bordered by darker skin tone without erythema. Resolving Pressure injury L ischium. Base of wound is 95% pink epithelial ,5% noni at center base of wound. No exudate noted. Both heels are boggy with non-Blanching erythema. Tx.plan: Cleanse Sacral wound with Saline. Loosely pack with Hydrogel impregnated Kerlix. Apply Moisture Barrier Periwound. Cover with Optifoam drsg Daily and prn. Apply Moisture Barrier paste to L Ischium. Cover with Optifoam drsg. Changee very 3 days and prn. Apply Cavilon Skin Barrier to both heels. Cover each heel with Optifoam drsgs. Change every 7 days and prn. Reposition at least every 2hours or as tolerated. Off-load heels with pillow. APM/JENNIFER Mattress overlay. Lane Saavedra Oct 09, 2019 13:01
[2019-10-09] MEDS: Lisinopril 20mg tab GT SCH (17:52)
[2019-10-09] MEDS: Dyna-Hex 2% Top Sol 2oz TOPIC SCH (20:54)
[2019-10-09] MEDS: Miralax 17gm pkt ORAL SCH (20:55)
[2019-10-09] MEDS: Sertraline 100mg tab GT SCH (20:55)
[2019-10-09] MEDS: Epoetin Alfa-EPBX(ESRD on dialysis)10,000 unit/ml vial SUBQ SCH (21:07)
--- NOTE | 2019-10-09 23:03 | General Progress Note ---
Subjective Constitutional: Reports: weakness HEENT: Reports: no symptoms Cardiovascular: Reports: no symptoms Respiratory: Reports: no symptoms Gastrointestinal/Abdominal: Reports: no symptoms Neurologic/Psychiatric: Reports: anxiety, depressed, weakness Allergies: Coded Allergies: No Known Allergies (Unverified , 10/10/17) Objective Last 24 Hour Vital Signs Date Time Temp Pulse Resp B/P (MAP) Pulse Ox O2 Delivery O2 Flow Rate FiO2 10/09/19 22:45 60 27 166/64 (98) 99 10/09/19 22:30 66 23 182/72 (108) 97 10/09/19 22:15 67 26 175/75 (108) 79 10/09/19 22:00 67 22 178/68 (104) 100 10/09/19 21:45 63 24 173/68 (103) 100 10/09/19 21:30 64 25 171/65 (100) 100 10/09/19 21:15 71 28 165/73 (103) 96 10/09/19 21:00 87 29 191/85 (120) 96 10/09/19 20:56 70 181/71 10/09/19 20:45 68 26 181/71 (107) 98 10/09/19 20:39 69 26 40 10/09/19 20:30 67 26 180/67 (104) 92 10/09/19 20:15 87 32 196/76 (116) 96 10/09/19 20:00 97.8 73 26 189/77 (114) 94 10/09/19 20:00 40 10/09/19 20:00 Mechanical Ventilator Mechanical Ventilator 10/09/19 19:30 69 22 166/72 (103) 94 10/09/19 19:15 67 25 168/70 (102) 94 10/09/19 19:05 64 24 100 Mechanical Ventilator 40 78 20 40 10/09/19 19:00 65 27 172/68 (102) 82 10/09/19 18:45 68 27 164/68 (100) 85 10/09/19 18:30 71 22 169/67 (101) 94 10/09/19 18:00 26 177/71 Mechanical Ventilator 40 10/09/19 18:00 73 27 177/71 (106) 93 10/09/19 17:52 145/59 10/09/19 17:30 76 25 158/66 (96) 93 10/09/19 17:21 97.9 10/09/19 17:20 97.9 10/09/19 17:00 23 145/59 Mechanical Ventilator 40 10/09/19 17:00 68 23 145/59 (87) 94 10/09/19 16:58 70 24 40 10/09/19 16:51 70 170/64 10/09/19 16:30 68 21 193/81 (118) 94 10/09/19 16:00 70 10/09/19 16:00 40 10/09/19 16:00 Mechanical Ventilator Mechanical Ventilator 10/09/19 16:00 24 170/64 Mechanical Ventilator 40 10/09/19 16:00 98.0 72 27 177/71 (106) 96 10/09/19 15:45 72 27 172/81 (111) 95 10/09/19 15:30 75 28 189/84 (119) 96 10/09/19 15:15 80 34 182/72 (108) 97 10/09/19 15:12 79 26 40 10/09/19 15:00 27 182/72 Mechanical Ventilator 40 10/09/19 15:00 80 29 189/80 (116) 95 10/09/19 14:45 78 25 191/81 (117) 97 10/09/19 14:30 72 26 180/74 (109) 95 10/09/19 14:00 72 22 191/79 (116) 96 10/09/19 14:00 28 183/70 Mechanical Ventilator 40 10/09/19 13:30 70 27 180/74 (109) 97 10/09/19 13:00 28 180/80 Mechanical Ventilator 40 10/09/19 13:00 81 28 180/80 (113) 95 10/09/19 12:50 71 21 100 Mechanical Ventilator 40 77 23 40 10/09/19 12:30 21 180/77 Mechanical Ventilator 50.0 40 10/09/19 12:30 23 180/77 Mechanical Ventilator 45 10/09/19 12:30 76 26 180/77 (111) 96 10/09/19 12:00 45 10/09/19 12:00 98.0 75 24 183/80 (114) 96 10/09/19 12:00 74 10/09/19 12:00 Mechanical Ventilator Mechanical Ventilator 10/09/19 12:00 23 180/77 Mechanical Ventilator 45 10/09/19 11:52 73 193/89 10/09/19 11:30 76 26 192/82 (118) 97 10/09/19 11:00 24 193/89 Mechanical Ventilator 45 10/09/19 11:00 72 27 193/75 (114) 98 10/09/19 10:58 73 20 40 10/09/19 10:30 73 22 186/87 (120) 84 10/09/19 10:00 77 24 191/81 (117) 93 10/09/19 10:00 20 170/77 Mechanical Ventilator 45 10/09/19 09:30 69 20 183/75 (111) 98 10/09/19 09:26 63 20 40 10/09/19 09:00 69 21 162/71 (101) 99 10/09/19 09:00 20 180/71 Mechanical Ventilator 45 10/09/19 08:50 171/73 10/09/19 08:50 58 140/60 10/09/19 08:30 67 15 156/65 (95) 99 10/09/19 08:00 67 10/09/19 08:00 19 191/77 Mechanical Ventilator 45 10/09/19 08:00 45 10/09/19 08:00 97.9 72 14 191/77 (115) 98 10/09/19 08:00 Mechanical Ventilator Mechanical Ventilator 10/09/19 07:31 64 21 100 Mechanical Ventilator 45 59 20 45 10/09/19 07:30 61 20 176/69 (104) 100 10/09/19 07:00 66 20 171/73 (105) 97 10/09/19 07:00 20 171/73 Mechanical Ventilator 45 10/09/19 06:45 64 22 166/72 (103) 96 10/09/19 06:30 66 22 155/69 (97) 97 10/09/19 06:15 62 19 160/64 (96) 98 10/09/19 06:00 20 156/59 Mechanical Ventilator 45 10/09/19 06:00 54 20 156/59 (91) 95 10/09/19 05:45 53 20 139/59 (85) 97 10/09/19 05:30 54 20 147/60 (89) 97 10/09/19 05:15 62 17 161/61 (94) 100 10/09/19 05:15 58 152/66 10/09/19 05:02 55 21 45 10/09/19 05:00 20 152/66 Mechanical Ventilator 45 10/09/19 05:00 54 20 152/66 (94) 96 10/09/19 04:45 57 19 152/67 (95) 97 10/09/19 04:30 55 20 159/65 (96) 96 10/09/19 04:15 54 19 144/62 (89) 96 10/09/19 04:00 45 10/09/19 04:00 98.5 54 19 153/65 (94) 97 10/09/19 04:00 Mechanical Ventilator Mechanical Ventilator 10/09/19 04:00 19 153/65 Mechanical Ventilator 45 10/09/19 03:45 55 20 140/65 (90) 96 10/09/19 03:30 61 19 156/62 (93) 97 10/09/19 03:15 61 24 155/61 (92) 97 10/09/19 03:00 61 10/09/19 03:00 62 22 164/63 (96) 97 10/09/19 03:00 22 164/63 Mechanical Ventilator 45 10/09/19 02:45 56 20 143/59 (87) 96 10/09/19 02:35 58 22 45 10/09/19 02:30 53 20 145/59 (87) 96 10/09/19 02:15 53 17 145/59 (87) 97 10/09/19 02:12 53 13 135/58 (83) 96 10/09/19 02:00 53 12 132/56 (81) 96 10/09/19 02:00 19 125/55 Mechanical Ventilator 45 10/09/19 01:45 54 18 131/57 (81) 96 10/09/19 01:30 58 20 143/65 (91) 96 10/09/19 01:15 58 20 125/55 (78) 97 10/09/19 01:01 59 20 98 Mechanical Ventilator 45 61 20 45 10/09/19 01:01 57 118/54 Mechanical Ventilator 45 10/09/19 01:00 61 20 137/64 (88) 98 10/09/19 00:45 53 20 118/54 (75) 98 10/09/19 00:30 55 20 116/51 (72) 97 10/09/19 00:15 58 20 123/52 (75) 97 10/09/19 00:00 Mechanical Ventilator Mechanical Ventilator 10/09/19 00:00 97.9 58 20 119/52 (74) 97 10/08/19 23:49 59 10/08/19 23:47 57 119/52 10/08/19 23:45 58 20 124/47 (72) 97 10/08/19 23:30 56 20 119/52 (74) 95 10/08/19 23:15 56 20 122/53 (76) 95 10/08/19 23:08 20 122/53 Mechanical Ventilator 45 Intake and Output 10/08/19 10/09/19 19:00 07:00 Intake Total 963.0 ml 742.3 ml Output Total 40 ml 120 ml Balance 923.0 ml 622.3 ml Intake Free Water 200 ml 200 ml IV Total 253.0 ml 142.3 ml Tube Feeding 480 ml 400 ml Other 30 ml Output Urine Total 40 ml 120 ml # Bowel Movements 3 Laboratory Tests 10/09/19 04:00: White Blood Count 6.7, Red Blood Count 3.36L, Hemoglobin 10.3L, Hematocrit 32.0L , Mean Corpuscular Volume 95, Mean Corpuscular Hemoglobin 30.5, Mean Corpuscular Hemoglobin Concent 32.1, Red Cell Distribution Width 14.1, Platelet Count 432, Mean Platelet Volume 5.8L, Neutrophils (%) (Auto) 75.5H, Lymphocytes (%) (Auto) 17.2L, Monocytes (%) (Auto) 5.7, Eosinophils (%) (Auto) 0.4, Basophils (%) (Auto) 1.3, Sodium Level 134L, Potassium Level 4.2, Chloride Level 99, Carbon Dioxide Level 23, Anion Gap 12, Blood Urea Nitrogen 68H, Creatinine 2.9H, Estimat Glomerular Filtration Rate 17.4, Glucose Level 92, Calcium Level 9.0, Total Bilirubin 0.4, Aspartate Amino Transf (AST/SGOT) 25, Alanine Aminotransferase (ALT/SGPT) 8L, Alkaline Phosphatase 167H, Total Protein 7.3, Albumin 1.6L, Globulin 5.7, Albumin/Globulin Ratio 0.3L Height (Feet): 5 Height (Inches): 5.00 Weight (Pounds): 141 Lucas Dong MD Oct 09, 2019 23:03
--- NOTE | 2019-10-09 23:35 | Psych Consult Progress Note ---
Psychiatry Progress Note Psychiatry Progress Note Subjective the pt was calm dec agitation managable with morphine and haldol off restraints Medications Current Medications Medications (Trade) Dose Ordered Sig/Penny Route PRN Reason Start Time Stop Time Status Last Admin Dose Admin Acetaminophen (Tylenol) 325 mg Q6H PRN GT Temp >100.5 09/23/19 10:45 10/23/19 10:44 09/23/19 18:55 Albuterol/ Ipratropium (Albuterol/ Ipratropium) 3 ml Q6HRT HHN 10/09/19 13:00 10/14/19 12:59 10/09/19 19:11 Ascorbic Acid (Vitamin C) 500 mg DAILY ORAL 10/06/19 09:00 11/05/19 08:59 10/09/19 08:46 Chlorhexidine Gluconate (Ling-Hex 2%) 1 applic DAILY@2000 TOPIC 09/23/19 20:00 12/22/19 19:59 10/09/19 20:54 Dextrose (Dextrose 50%) 25 ml Q30M PRN IV Hypoglycemia 10/05/19 18:30 01/03/20 18:29 Dextrose (Dextrose 50%) 50 ml Q30M PRN IV Hypoglycemia 10/05/19 18:30 01/03/20 18:29 Diltiazem HCl (Cardizem Tab) 60 mg Q6HR GT 10/04/19 18:00 11/03/19 17:59 10/09/19 16:51 Docusate Sodium (Colace) 100 mg Q8H GT 09/29/19 08:30 10/29/19 08:29 10/07/19 17:06 Epoetin Gelacio (Epoetin Gelacio(ESRD on dialysis)) 10,000 unit MON-MON-MON SUBQ 09/25/19 21:00 12/24/19 20:59 10/09/19 21:07 Fentanyl Citrate 250 ml @ 0 mls/hr Q24H IV 10/09/19 12:30 10/11/19 12:29 10/09/19 12:30 Haloperidol Lactate (Haldol) 5 mg Q6H PRN IM Agitation 10/08/19 11:00 11/22/19 10:59 10/09/19 16:50 Heparin Sodium (Porcine) (Heparin 5000 units/ml) 5,000 units EVERY 12 HOURS SUBQ 09/17/19 21:00 10/30/19 08:59 10/09/19 20:53 Hydralazine HCl (Apresoline) 10 mg Q4H PRN IV BP over 160 systolic 09/17/19 11:15 12/14/19 11:14 10/04/19 09:04 Insulin Aspart (NovoLOG) Q6HR SUBQ 10/06/19 00:00 01/03/20 20:59 Lactulose (Cephulac) 10 gm THREE TIMES A DAY ORAL 10/03/19 13:00 11/02/19 12:59 10/07/19 17:06 Lansoprazole (Prevacid) 30 mg Q12HR GT 09/27/19 21:00 10/27/19 20:59 10/09/19 20:55 Lisinopril (PriniviL) 20 mg BID GT 10/09/19 18:00 11/08/19 17:59 10/09/19 17:52 Metoclopramide HCl (Reglan) 5 mg EVERY 6 HOURS GT 10/09/19 12:00 11/08/19 11:59 10/09/19 16:50 Metoprolol Tartrate (Lopressor) 25 mg Q12HR GT 10/09/19 21:00 01/07/20 20:59 10/09/19 20:56 Midazolam HCl (Versed 2mg/2ml vial) 1 mg Q4H PRN IVP For Anxiety 09/21/19 09:30 10/14/19 09:29 10/09/19 21:07 Morphine Sulfate (Morphine Sulfate) 2 mg Q4H PRN IVP For Pain 10/09/19 11:00 10/16/19 10:59 10/09/19 20:55 Polyethylene Glycol (Miralax) 17 gm BEDTIME ORAL 10/01/19 21:00 10/31/19 20:59 10/09/19 20:55 Risperidone (RisperDAL) 2 mg BEDTIME ORAL 10/05/19 21:00 11/19/19 20:59 10/09/19 20:55 Sertraline HCl (Zoloft) 100 mg BEDTIME GT 09/17/19 21:00 10/15/19 20:59 10/09/19 20:55 Sorbitol (sorbitoL) 30 ml EVERY 6 HOURS PRN GT Constipation 09/29/19 18:00 10/29/19 17:59 10/01/19 00:44 Vitamin B Complex/ Vit C/Folic Acid (Nephrovite) 1 tab DAILY ORAL 10/06/19 09:00 11/05/19 08:59 10/09/19 08:47 Zinc Sulfate (Zinc Sulfate) 220 mg DAILY ORAL 10/06/19 09:00 10/16/19 08:59 10/09/19 08:46 Neurological/Psychiatric: Reports: anxiety, depressed, weakness Allergies: Coded Allergies: No Known Allergies (Unverified , 10/10/17) Objective Data Height (Feet): 5 Height (Inches): 5.00 Weight (Pounds): 141 General Appearance: WD/WN, no apparent distress, alert Additional Comments: awake, disoriented. Mood is agitated. Affect is flat. Thought process is concrete. Thought content, no suicidal or homicidal ideation. Cognition is impaired. Insight and judgment are impaired. Assessment/Plan [place] I: ASSESSMENT: AXIS I: Acute encephalopathy. Schizophrenia. AXIS II: Deferred. AXIS III: As above. AXIS IV: Low. AXIS V: 20. PLAN: 1. We will start the patient on risperidone 2 mg at bedtime. 2. Haldol IM. The patient improved after 1 dose and restraints was stopped at nighttime. 3. Continue to follow and readjust the medications. Status Narrative ASSESSMENT: AXIS I: Acute encephalopathy. Schizophrenia. AXIS II: Deferred. AXIS III: As above. AXIS IV: Low. AXIS V: 20. PLAN: 1. We will start the patient on risperidone 2 mg at bedtime. 2. Haldol IM. The patient improved after 1 dose and restraints was stopped at nighttime. 3. Continue to follow and readjust the medications. Assessment/Plan: ASSESSMENT: AXIS I: Acute encephalopathy. Schizophrenia. AXIS II: Deferred. AXIS III: As above. AXIS IV: Low. AXIS V: 20. PLAN: 1. We will start the patient on risperidone 2 mg at bedtime. 2. Haldol IM. The patient improved after 1 dose and restraints was stopped at nighttime. 3. Continue to follow and readjust the medications. Shanda Linares MD Oct 09, 2019 23:35
[2019-10-10] VITALS (61 sets, daily range): BP systolic 153–214; BP diastolic 61–93
[2019-10-10] MEDS: Metoclopramide 10mg/10ml Liq GT SCH ×5 (00:12→23:57)
[2019-10-10] MEDS: Docusate 100mg/10ml Liq GT SCH ×3 (00:12→17:33)
[2019-10-10] MEDS: Haloperidol 5mg/ml Inj IM PRN ×3 (00:12→21:07)
[2019-10-10] MEDS: Albuterol/Ipratropium 3ml neb HHN SCH ×4 (00:36→18:47)
[2019-10-10] MEDS: Midazolam 2mg/2ml Inj IVP PRN ×2 (02:50→23:56)
[2019-10-10] MEDS: Morphine Sulfate 2mg/ml Inj(IV/IM USE ONLY) IVP PRN ×3 (02:51→23:56)
[2019-10-10] MEDS: NovoLOG Insulin Flexpen SUBQ SCH ×4 (06:00→17:38)
[2019-10-10 06:03] LABS: BASOPHILS % (AUTO) 0.6 % (0.0-2.0); EOSINOPHILS % (AUTO) 0.8 % (0.0-3.0); HEMATOCRIT 30.3 % (37.0-47.0); HEMOGLOBIN 9.8 G/DL (12.0-16.0); LYMPHOCYTES % (AUTO) 14.3 % (20.0-45.0); MEAN CORPUSCULAR VOLUME 93 FL (80-99); MONOCYTES % (AUTO) 4.5 % (1.0-10.0); NEUTROPHILS % (AUTO) 79.7 % (45.0-75.0); PLATELET COUNT 446 K/UL (150-450); RED BLOOD COUNT 3.24 M/UL (4.20-5.40); RED CELL DISTRIBUTION WIDTH 13.8 % (11.6-14.8); WHITE BLOOD COUNT 8.6 K/UL (4.8-10.8)
[2019-10-10] MEDS: dilTIAZem HCl 60mg tab GT SCH ×2 (06:04)
[2019-10-10 06:25] LABS: ANION GAP 11 mmol/L (5-15); BLOOD UREA NITROGEN 68 mg/dL (7-18); CALCIUM 9.4 MG/DL (8.5-10.1); CARBON DIOXIDE 23 MMOL/L (21-32); CHLORIDE 100 MMOL/L (98-107); CREATININE 2.8 MG/DL (0.55-1.30); POTASSIUM 3.6 MMOL/L (3.5-5.1); SODIUM 134 MMOL/L (136-145)
[2019-10-10 06:33] LABS: ALANINE AMINOTRANSFERASE 12 U/L (12-78); ALBUMIN 1.9 G/DL (3.4-5.0); ALKALINE PHOSPHATASE 171 U/L (46-116); ASPARTATE AMINO TRANSFERASE 26 U/L (15-37); BILIRUBIN,DIRECT 0.2 MG/DL (0.0-0.3); BILIRUBIN,TOTAL 0.3 MG/DL (0.2-1.0); PHOSPHORUS 4.2 MG/DL (2.5-4.9)
[2019-10-10] MEDS: Lactulose 10gm/15ml UDC ORAL SCH ×3 (09:26→17:33)
[2019-10-10] MEDS: Zinc Sulfate 220mg ORAL SCH (09:27)
[2019-10-10] MEDS: Ascorbic Acid 500mg tab ORAL SCH (09:27)
[2019-10-10] MEDS: Nephrovite tab (Rena-Vite) ORAL SCH (09:28)
[2019-10-10] MEDS: Lisinopril 20mg tab GT SCH ×2 (09:29→17:33)
[2019-10-10] MEDS: Heparin 5000 units/ml inj SUBQ SCH ×2 (09:31→21:07)
--- NOTE | 2019-10-10 09:48 | Nephrology Progress Note ---
Assessment/Plan Problem List: (1) JAVIER (acute kidney injury) (2) Renal failure (ARF), acute on chronic (3) Dehydration (4) Electrolyte imbalance (5) Anemia (6) Respiratory failure, acute and chronic (7) COPD with exacerbation Assessment Patient is presented with sepsis and pneumonia and UTI Patient has acute renal failure, possible underlying chronic kidney failure Severe anemia Electrolyte imbalances: Hyponatremia, hypo-kalemia Chronic respiratory failure, COPD exacerbation Plan October 09: Lab reviewed. Remains oliguric. Will give trial of Zaroxolyn. Continue per consultants. Adjust blood pressure medication. Will add Zaroxolyn and increased dose of Cardizem and add clonidine patch for better BP control October 08: Labs reviewed. Patient oliguric. Blood pressure elevated, BP medication adjusted. Recheck lab tomorrow. Dialysis and ultrafiltration as needed. October 07: Labs reviewed. Patient was dialyzed yesterday. 3000 mL fluid was removed. Patient appears to need periodic (twice a week minimum) dialysis for ultrafiltration. Continue to monitor renal parameters. Continue per consultants. October 06: Labs reviewed. Discussed with pulmonary. Will attempt dialysis and ultrafiltration. Continue per consultants. October 05: Lab reviewed. Serum creatinine rising. Blood pressure stabilized. Will recheck lab tomorrow. Dialysis as needed. Will increase lisinopril to 10 mg twice a day. October 04: Lab reviewed. Blood pressure medication adjusted since the patient is hypotensive. Serum creatinine rising. Recheck labs tomorrow. Dialysis as needed. Discussed with RN. October 03: Lab reviewed. Zestril added to BP medication. 1 dose of Seroquel ordered for agitation. Continue to monitor renal parameters. Continue per consultants. October 02: Lab reviewed. Potassium supplement IV given. 3% saline 250 cc ordered. Responded well to Zaroxolyn yesterday. Will continue to monitor electrolytes and renal parameters. Will increase minoxidil to 2.5 mg every 6 hours. October 01: Labs reviewed. Potassium supplement given. Last dialysis September 29. Serum creatinine rising gradually. Urine output very low. Patient appears to continue to need dialysis at least twice a week. Blood pressure still running high I will switch the hydralazine to minoxidil. We will give 1 dose of Zaroxolyn 10 mg today. Will check renal parameters tomorrow. September 30: Patient dialyzed yesterday. 3 L removed. Labs reviewed. Potassium supplement given. Continue per consultants. It appears that the patient required dialysis 2-3 times a week. September 29: Lab reviewed. Chest x-ray result noted. Continues to have pulmonary congestion. Urine output low. Will attempt dialysis again today with ultrafiltration. September 28: Lab reviewed. ABG reviewed. Potassium supplement given. No dialysis at this point. Will eval patient status and renal parameters daily. September 27: Lab reviewed. Last dialysis September 25. Continue to monitor renal parameters. Hemodialysis as needed. September 26: Lab reviewed. Dialyzed yesterday. Potassium supplement given. Medication list reviewed. Will observe renal parameters and arrange for dialysis as needed. September 25: Lab reviewed. Currently on hemodialysis. Tolerating well. Stable from renal standpoint of view. Blood pressure medication adjusted by increasing hydralazine. September 24: Lab reviewed. ABG reviewed. Both lab and ABG much improved. Patient was dialyzed yesterday. We will attempt dialysis tomorrow again. Will adjust that blood pressure medication dosages. September 23: Lab reviewed. ABG reviewed. Patient acidotic. IV bicarb 1 dose is given. Patient has dialysis catheter. Will order dialysis for ultrafiltration and correction of acid-base. Discussed with ERASMO Mohr. September 22: Labs reviewed. Potassium high. Kayexalate and Reglan given. Will discuss with the consultants regarding initiation of dialysis. September 21: Patient is being sedated. Labs reviewed. Potassium supplement discontinued. GFR 20. Continue per current treatment plan. Dialysis and ultrafiltration is a consideration. September 20: Patient periodically agitated. Labs reviewed. Creatinine 2.4. Medication reviewed. Continue per consultants. Calculated creatinine clearance 21. May need isolated ultrafiltration on dialysis. Will discuss with PMD. Meanwhile hemoglobin is lower, defer transfusion to PMD. September 19: DC IV fluid. Zaroxolyn via GT tube. Potassium supplement. Attempt to diurese. Chest CT as bilateral pleural effusion. If diuresis unsuccessful, will consider dialysis and ultrafiltration. September 18: Potassium supplement IV given. Hemoglobin stable. Patient remains full code. Continue per consultants. Previously: Potassium supplement IV Slow IV hydration Epogen subcu Adjust blood pressure medication IV fluid, rate adjusted Norman catheter, intake and output Monitor renal parameters Avoid nephrotoxic's Antibiotics Per orders 2D echocardiogram Kidney ultrasound Subjective ROS Limited/Unobtainable: Yes Objective Objective Last 24 Hour Vital Signs Date Time Temp Pulse Resp B/P (MAP) Pulse Ox O2 Delivery O2 Flow Rate FiO2 10/10/19 09:29 172/69 10/10/19 09:28 72 172/69 10/10/19 09:20 83 32 40 10/10/19 07:30 77 25 173/73 (106) 98 10/10/19 07:22 72 26 99 Mechanical Ventilator 50 76 27 50 10/10/19 07:15 71 20 154/65 (94) 99 10/10/19 07:00 77 24 167/70 (102) 98 10/10/19 06:45 73 27 160/67 (98) 99 10/10/19 06:30 74 31 153/69 (97) 98 10/10/19 06:15 78 28 164/69 (100) 99 10/10/19 06:04 78 184/79 10/10/19 06:00 78 25 174/72 (106) 99 10/10/19 05:45 82 29 184/79 (114) 99 10/10/19 05:30 82 23 182/74 (110) 99 10/10/19 05:15 84 26 178/80 (112) 99 10/10/19 05:00 82 29 177/79 (111) 100 10/10/19 04:45 80 30 181/81 (114) 99 10/10/19 04:35 73 29 50 10/10/19 04:30 74 24 180/86 (117) 100 10/10/19 04:30 182/77 10/10/19 04:00 98.3 77 28 182/77 (112) 98 10/10/19 04:00 Mechanical Ventilator Mechanical Ventilator 10/10/19 04:00 40 10/10/19 03:45 81 28 197/79 (118) 97 10/10/19 03:37 84 10/10/19 03:30 82 26 214/93 (133) 97 10/10/19 03:15 73 28 50 10/10/19 03:15 66 28 180/87 (118) 98 10/10/19 03:00 66 25 163/61 (95) 98 10/10/19 02:45 70 26 170/72 (104) 99 10/10/19 02:30 70 26 173/69 (103) 99 10/10/19 02:15 70 27 175/68 (103) 99 10/10/19 02:00 67 27 174/69 (104) 99 10/10/19 01:45 70 28 177/72 (107) 99 10/10/19 01:30 70 28 175/69 (104) 99 10/10/19 01:15 71 21 177/70 (105) 99 10/10/19 01:13 65 28 100 Mechanical Ventilator 50 78 20 50 10/10/19 01:00 64 22 162/66 (98) 100 10/10/19 00:45 63 22 168/71 (103) 100 10/10/19 00:30 66 24 177/68 (104) 100 10/10/19 00:15 59 25 172/66 (101) 100 10/10/19 00:13 173/68 10/10/19 00:00 58 173/68 10/10/19 00:00 Mechanical Ventilator Mechanical Ventilator 10/10/19 00:00 98.2 59 25 173/68 (103) 99 10/10/19 00:00 63 10/09/19 23:45 62 25 167/72 (103) 100 10/09/19 23:30 64 20 178/70 (106) 100 10/09/19 23:15 57 24 162/63 (96) 100 10/09/19 23:14 66 26 50 10/09/19 23:00 60 26 168/59 (95) 99 10/09/19 22:45 60 27 166/64 (98) 99 10/09/19 22:30 66 23 182/72 (108) 97 10/09/19 22:15 67 26 175/75 (108) 79 10/09/19 22:00 67 22 178/68 (104) 100 10/09/19 21:45 63 24 173/68 (103) 100 10/09/19 21:30 64 25 171/65 (100) 100 10/09/19 21:15 71 28 165/73 (103) 96 10/09/19 21:00 87 29 191/85 (120) 96 10/09/19 20:56 70 181/71 10/09/19 20:45 68 26 181/71 (107) 98 10/09/19 20:40 50 10/09/19 20:39 69 26 40 10/09/19 20:30 67 26 180/67 (104) 92 10/09/19 20:15 87 32 196/76 (116) 96 10/09/19 20:00 97.8 73 26 189/77 (114) 94 10/09/19 20:00 40 10/09/19 20:00 Mechanical Ventilator Mechanical Ventilator 10/09/19 19:30 69 22 166/72 (103) 94 10/09/19 19:20 68 10/09/19 19:15 67 25 168/70 (102) 94 10/09/19 19:05 64 24 100 Mechanical Ventilator 40 78 20 40 10/09/19 19:00 65 27 172/68 (102) 82 10/09/19 18:45 68 27 164/68 (100) 85 10/09/19 18:30 71 22 169/67 (101) 94 10/09/19 18:00 26 177/71 Mechanical Ventilator 40 10/09/19 18:00 73 27 177/71 (106) 93 10/09/19 17:52 145/59 10/09/19 17:30 76 25 158/66 (96) 93 10/09/19 17:21 97.9 10/09/19 17:20 97.9 10/09/19 17:00 23 145/59 Mechanical Ventilator 40 10/09/19 17:00 68 23 145/59 (87) 94 10/09/19 16:58 70 24 40 10/09/19 16:51 70 170/64 10/09/19 16:30 68 21 193/81 (118) 94 10/09/19 16:00 70 10/09/19 16:00 40 10/09/19 16:00 Mechanical Ventilator Mechanical Ventilator 10/09/19 16:00 24 170/64 Mechanical Ventilator 40 10/09/19 16:00 98.0 72 27 177/71 (106) 96 10/09/19 15:45 72 27 172/81 (111) 95 10/09/19 15:30 75 28 189/84 (119) 96 10/09/19 15:15 80 34 182/72 (108) 97 10/09/19 15:12 79 26 40 10/09/19 15:00 27 182/72 Mechanical Ventilator 40 10/09/19 15:00 80 29 189/80 (116) 95 10/09/19 14:45 78 25 191/81 (117) 97 10/09/19 14:30 72 26 180/74 (109) 95 10/09/19 14:00 72 22 191/79 (116) 96 10/09/19 14:00 28 183/70 Mechanical Ventilator 40 10/09/19 13:30 70 27 180/74 (109) 97 10/09/19 13:00 28 180/80 Mechanical Ventilator 40 10/09/19 13:00 81 28 180/80 (113) 95 10/09/19 12:50 71 21 100 Mechanical Ventilator 40 77 23 40 10/09/19 12:30 21 180/77 Mechanical Ventilator 50.0 40 10/09/19 12:30 23 180/77 Mechanical Ventilator 45 10/09/19 12:30 76 26 180/77 (111) 96 10/09/19 12:00 45 10/09/19 12:00 98.0 75 24 183/80 (114) 96 10/09/19 12:00 74 10/09/19 12:00 Mechanical Ventilator Mechanical Ventilator 10/09/19 12:00 23 180/77 Mechanical Ventilator 45 10/09/19 11:52 73 193/89 10/09/19 11:30 76 26 192/82 (118) 97 10/09/19 11:00 24 193/89 Mechanical Ventilator 45 10/09/19 11:00 72 27 193/75 (114) 98 10/09/19 10:58 73 20 40 10/09/19 10:30 73 22 186/87 (120) 84 10/09/19 10:00 77 24 191/81 (117) 93 10/09/19 10:00 20 170/77 Mechanical Ventilator 45 Intake and Output 10/09/19 10/10/19 19:00 07:00 Intake Total 670.5 ml 640 ml Output Total 270 ml 290 ml Balance 400.5 ml 350 ml Intake Free Water 200 ml IV Total 50.5 ml Tube Feeding 360 ml 440 ml Other 260 ml Output Urine Total 270 ml 290 ml # Bowel Movements 2 Laboratory Tests 10/10/19 04:29: White Blood Count 8.6, Red Blood Count 3.24L, Hemoglobin 9.8L, Hematocrit 30.3L , Mean Corpuscular Volume 93, Mean Corpuscular Hemoglobin 30.4, Mean Corpuscular Hemoglobin Concent 32.5, Red Cell Distribution Width 13.8, Platelet Count 446, Mean Platelet Volume 5.4L, Neutrophils (%) (Auto) 79.7H, Lymphocytes (%) (Auto) 14.3L, Monocytes (%) (Auto) 4.5, Eosinophils (%) (Auto) 0.8, Basophils (%) (Auto) 0.6, Sodium Level 134L, Potassium Level 3.6, Chloride Level 100, Carbon Dioxide Level 23, Anion Gap 11, Blood Urea Nitrogen 68H, Creatinine 2.8H, Estimat Glomerular Filtration Rate 18.1, Glucose Level 118H, Calcium Level 9.4, Phosphorus Level 4.2, Magnesium Level 3.1H, Total Bilirubin 0.3, Direct Bilirubin 0.2, Aspartate Amino Transf (AST/SGOT) 26, Alanine Aminotransferase (ALT/SGPT) 12, Alkaline Phosphatase 171H, Total Protein 6.8, Albumin 1.9L 10/10/19 07:57: Arterial Blood pH 7.422, Arterial Blood Partial Pressure CO2 32.4L, Arterial Blood Partial Pressure O2 90.1, Arterial Blood HCO3 20.6L, Arterial Blood Oxygen Saturation 96.6, Arterial Blood Base Excess -3.1L, Rojas Test Positive Height (Feet): 5 Height (Inches): 5.00 Weight (Pounds): 141 General Appearance: no apparent distress Cardiovascular: normal rate Respiratory/Chest: decreased breath sounds Abdomen: distended Objective No change Johnny Houston MD Oct 10, 2019 09:48
--- NOTE | 2019-10-10 11:52 | General Progress Note ---
Assessment/Plan Problem List: (1) S/P aortic dissection repair ICD Codes: Z98.890 - Other specified postprocedural states SNOMED: 022124662, 956933473 (2) Sacral decubitus ulcer, stage IV ICD Codes: L89.154 - Pressure ulcer of sacral region, stage 4 SNOMED: 835287030, 152929332 (3) Anemia ICD Codes: D64.9 - Anemia, unspecified SNOMED: 784101665 (4) GT CLOGGED (5) Feeding by G-tube ICD Codes: Z93.1 - Gastrostomy status SNOMED: 422114040, 542039115 (6) Tracheostomy in place ICD Codes: Z93.0 - Tracheostomy status SNOMED: 050074670 (7) Pacemaker ICD Codes: Z95.0 - Presence of cardiac pacemaker SNOMED: 780405611 (8) Chronic respiratory failure ICD Codes: J96.10 - Chronic respiratory failure, unspecified whether with hypoxia or hypercapnia SNOMED: 44105911 Assessment/Plan: GTF D/W the nurse at the bedside monitor for residuals repeat labs ICU care on lactulose Subjective ROS Limited/Unobtainable: No Allergies: Coded Allergies: No Known Allergies (Unverified , 10/10/17) Objective Last 24 Hour Vital Signs Date Time Temp Pulse Resp B/P (MAP) Pulse Ox O2 Delivery O2 Flow Rate FiO2 10/10/19 11:20 64 28 30 10/10/19 11:00 64 24 185/74 (111) 97 10/10/19 10:00 76 24 179/79 (112) 98 10/10/19 09:29 172/69 10/10/19 09:28 72 172/69 10/10/19 09:20 83 32 40 10/10/19 09:00 70 26 164/74 (104) 99 10/10/19 08:00 Mechanical Ventilator Mechanical Ventilator 10/10/19 08:00 65 10/10/19 08:00 98.1 75 25 167/73 (104) 98 10/10/19 08:00 40 10/10/19 07:30 77 25 173/73 (106) 98 10/10/19 07:22 72 26 99 Mechanical Ventilator 50 76 27 50 10/10/19 07:15 71 20 154/65 (94) 99 10/10/19 07:00 77 24 167/70 (102) 98 10/10/19 06:45 73 27 160/67 (98) 99 10/10/19 06:30 74 31 153/69 (97) 98 10/10/19 06:15 78 28 164/69 (100) 99 10/10/19 06:04 78 184/79 10/10/19 06:00 78 25 174/72 (106) 99 10/10/19 05:45 82 29 184/79 (114) 99 10/10/19 05:30 82 23 182/74 (110) 99 10/10/19 05:15 84 26 178/80 (112) 99 10/10/19 05:00 82 29 177/79 (111) 100 10/10/19 04:45 80 30 181/81 (114) 99 10/10/19 04:35 73 29 50 10/10/19 04:30 74 24 180/86 (117) 100 10/10/19 04:30 182/77 10/10/19 04:00 98.3 77 28 182/77 (112) 98 10/10/19 04:00 Mechanical Ventilator Mechanical Ventilator 10/10/19 04:00 40 10/10/19 03:45 81 28 197/79 (118) 97 10/10/19 03:37 84 10/10/19 03:30 82 26 214/93 (133) 97 10/10/19 03:15 73 28 50 10/10/19 03:15 66 28 180/87 (118) 98 10/10/19 03:00 66 25 163/61 (95) 98 10/10/19 02:45 70 26 170/72 (104) 99 10/10/19 02:30 70 26 173/69 (103) 99 10/10/19 02:15 70 27 175/68 (103) 99 10/10/19 02:00 67 27 174/69 (104) 99 10/10/19 01:45 70 28 177/72 (107) 99 10/10/19 01:30 70 28 175/69 (104) 99 10/10/19 01:15 71 21 177/70 (105) 99 10/10/19 01:13 65 28 100 Mechanical Ventilator 50 78 20 50 10/10/19 01:00 64 22 162/66 (98) 100 10/10/19 00:45 63 22 168/71 (103) 100 10/10/19 00:30 66 24 177/68 (104) 100 10/10/19 00:15 59 25 172/66 (101) 100 10/10/19 00:13 173/68 10/10/19 00:00 58 173/68 10/10/19 00:00 Mechanical Ventilator Mechanical Ventilator 10/10/19 00:00 98.2 59 25 173/68 (103) 99 10/10/19 00:00 63 10/09/19 23:45 62 25 167/72 (103) 100 10/09/19 23:30 64 20 178/70 (106) 100 10/09/19 23:15 57 24 162/63 (96) 100 10/09/19 23:14 66 26 50 10/09/19 23:00 60 26 168/59 (95) 99 10/09/19 22:45 60 27 166/64 (98) 99 10/09/19 22:30 66 23 182/72 (108) 97 10/09/19 22:15 67 26 175/75 (108) 79 10/09/19 22:00 67 22 178/68 (104) 100 10/09/19 21:45 63 24 173/68 (103) 100 10/09/19 21:30 64 25 171/65 (100) 100 10/09/19 21:15 71 28 165/73 (103) 96 10/09/19 21:00 87 29 191/85 (120) 96 10/09/19 20:56 70 181/71 10/09/19 20:45 68 26 181/71 (107) 98 10/09/19 20:40 50 10/09/19 20:39 69 26 40 10/09/19 20:30 67 26 180/67 (104) 92 10/09/19 20:15 87 32 196/76 (116) 96 10/09/19 20:00 97.8 73 26 189/77 (114) 94 10/09/19 20:00 40 10/09/19 20:00 Mechanical Ventilator Mechanical Ventilator 10/09/19 19:30 69 22 166/72 (103) 94 10/09/19 19:20 68 10/09/19 19:15 67 25 168/70 (102) 94 10/09/19 19:05 64 24 100 Mechanical Ventilator 40 78 20 40 10/09/19 19:00 65 27 172/68 (102) 82 10/09/19 18:45 68 27 164/68 (100) 85 10/09/19 18:30 71 22 169/67 (101) 94 10/09/19 18:00 26 177/71 Mechanical Ventilator 40 10/09/19 18:00 73 27 177/71 (106) 93 10/09/19 17:52 145/59 10/09/19 17:30 76 25 158/66 (96) 93 10/09/19 17:21 97.9 10/09/19 17:20 97.9 10/09/19 17:00 23 145/59 Mechanical Ventilator 40 10/09/19 17:00 68 23 145/59 (87) 94 10/09/19 16:58 70 24 40 10/09/19 16:51 70 170/64 10/09/19 16:30 68 21 193/81 (118) 94 10/09/19 16:00 70 10/09/19 16:00 40 10/09/19 16:00 Mechanical Ventilator Mechanical Ventilator 10/09/19 16:00 24 170/64 Mechanical Ventilator 40 10/09/19 16:00 98.0 72 27 177/71 (106) 96 10/09/19 15:45 72 27 172/81 (111) 95 10/09/19 15:30 75 28 189/84 (119) 96 10/09/19 15:15 80 34 182/72 (108) 97 10/09/19 15:12 79 26 40 10/09/19 15:00 27 182/72 Mechanical Ventilator 40 10/09/19 15:00 80 29 189/80 (116) 95 10/09/19 14:45 78 25 191/81 (117) 97 10/09/19 14:30 72 26 180/74 (109) 95 10/09/19 14:00 72 22 191/79 (116) 96 10/09/19 14:00 28 183/70 Mechanical Ventilator 40 10/09/19 13:30 70 27 180/74 (109) 97 10/09/19 13:00 28 180/80 Mechanical Ventilator 40 10/09/19 13:00 81 28 180/80 (113) 95 10/09/19 12:50 71 21 100 Mechanical Ventilator 40 77 23 40 10/09/19 12:30 21 180/ Mechanical Ventilator 50.0 40 10/09/19 12:30 23 180/ Mechanical Ventilator 45 10/09/19 12:30 76 26 180/ (111) 96 10/09/19 12:00 45 10/09/19 12:00 98.0 75 24 183/80 (114) 96 10/09/19 12:00 74 10/09/19 12:00 Mechanical Ventilator Mechanical Ventilator 10/09/19 12:00 23 180/ Mechanical Ventilator 45 10/09/19 11:52 73 193/89 Intake and Output 10/09/19 10/10/19 19:00 07:00 Intake Total 670.5 ml 640 ml Output Total 270 ml 290 ml Balance 400.5 ml 350 ml Intake Free Water 200 ml IV Total 50.5 ml Tube Feeding 360 ml 440 ml Other 260 ml Output Urine Total 270 ml 290 ml # Bowel Movements 2 Laboratory Tests 10/10/19 04:29: White Blood Count 8.6, Red Blood Count 3.24L, Hemoglobin 9.8L, Hematocrit 30.3L , Mean Corpuscular Volume 93, Mean Corpuscular Hemoglobin 30.4, Mean Corpuscular Hemoglobin Concent 32.5, Red Cell Distribution Width 13.8, Platelet Count 446, Mean Platelet Volume 5.4L, Neutrophils (%) (Auto) 79.7H, Lymphocytes (%) (Auto) 14.3L, Monocytes (%) (Auto) 4.5, Eosinophils (%) (Auto) 0.8, Basophils (%) (Auto) 0.6, Sodium Level 134L, Potassium Level 3.6, Chloride Level 100, Carbon Dioxide Level 23, Anion Gap 11, Blood Urea Nitrogen 68H, Creatinine 2.8H, Estimat Glomerular Filtration Rate 18.1, Glucose Level 118H, Calcium Level 9.4, Phosphorus Level 4.2, Magnesium Level 3.1H, Total Bilirubin 0.3, Direct Bilirubin 0.2, Aspartate Amino Transf (AST/SGOT) 26, Alanine Aminotransferase (ALT/SGPT) 12, Alkaline Phosphatase 171H, Total Protein 6.8, Albumin 1.9L 10/10/19 07:57: Arterial Blood pH 7.422, Arterial Blood Partial Pressure CO2 32.4L, Arterial Blood Partial Pressure O2 90.1, Arterial Blood HCO3 20.6L, Arterial Blood Oxygen Saturation 96.6, Arterial Blood Base Excess -3.1L, Rojas Test Positive Height (Feet): 5 Height (Inches): 5.00 Weight (Pounds): 141 General Appearance: lethargic EENT: normal ENT inspection Neck: supple Cardiovascular: normal rate Respiratory/Chest: decreased breath sounds Abdomen: hypoactive bowel sounds Extremities: non-tender Inder Mccauley MD Oct 10, 2019 11:52
[2019-10-10] MEDS: dilTIAZem HCl 90mg tab GT SCH ×3 (11:58→23:55)
--- NOTE | 2019-10-10 12:13 | Infectious Diseases Prog Note ---
Assessment/Plan 49yo F with: Acute hypoxic resp failure: Now on vent, worsening, FiO2 100% > 80% 09/27 > 60% >40% 10/08 >30% 10/09 Pneumonia, COVID19 neg x3 - MDR PsA pneumonia,s pr x 10/07 CXR: Bilateral infiltrates versus edema, left greater than right pleural effusions are again demonstrated, unchanged. There is slightly better inspiration currently. 09/29 CXR: Bilateral edema versus infiltrates appears slightly worse than on the prior study. There is probably some pleural fluid on the left. 09/26 S/P thoracentesis, 900cc removed, only 67 WBC in fluid analysis, unlikely empyema 09/26 CXR: Worsening R perihilar opacity 09/26 BCx NTD 09/24 CXR: Previously demonstrated right lateral basilar lucency is no longer evident, was presumably a skin fold artifact. Bilateral infiltrates and left pleural effusion are probably unchanged allowing for slight differences in technique. 09/22 Resp cx + MDR PsA (S-gent; I-colistin; R-levofloxacin, Zosyn, angelo) 09/22 BCx NTD 09/22 CXR: worsening BL pna 09/22 UA w/ persistent pyuria, now on HD, UCx +VRE, most likely colonizer as improving wo tx for this 09/19 V/Q scan, low probability of PE 09/18 Rapid COVID PCR neg 09/18 CT chest: Markedly suboptimal examination due to lack of IV contrast material. Bilateral pleural effusions, right greater than left, with bilateral lower lobe consolidation or volume loss. Ground glass densities in the upper lobes bilaterally. This is not specific. Tracheostomy. Increased superior mediastinal density. Stability of adenopathy cannot be excluded. Atherosclerotic change. Gastrostomy. Ascites. Left renal stent with left hydronephrosis and renal atrophy. 09/17 Chest US: Trace right and small left pleural effusions. No safe window identified for bedside thoracentesis. Note that the majority of the left pleural effusion is subpulmonic. 09/16 CXR: Worsening of right lung infiltrates and right effusion. V. duplex: NO DVT D-dimer elevated 09/15 Rapid COVID PCR neg 09/15 Sp cx ESBL P. mirablis 09/14 CXR: Bilateral airspace opacities, preferentially involving the right lung, consistent with multifocal infiltrate. Trace bilateral pleural effusions. No pneumothorax. Rapid COVID PCR neg Urine legionella neg 09/16 GPC bacteremia, real vs contaminant; does have hx of infected PPM- 09/14 Bcx 2/ S. epidermis; 09/15, , Bcx Neg 2d echo: no vegetations seen UTI, sp rx 8/2 u/a wbc tnct, nit neg, leuk +3; ucx >100k MDR P. stuarti (S Ceftriaxone, Meropenem) 09/22 UA w/ ongoing pyuria, unchanged 10/07 u/a wbc tnct, nit neg, leuk ; ucx p Unstageable sacral ulceration Afebrile Leukocytosis, mild; fluctuates bt -- SP JAVIER on CKD --> now on HD Renal US: Limited exam due to abdominal ascites and shadowing from bowel gas. CT recommended for more sensitive evaluation. Moderate right hydronephrosis. Increased renal parenchymal echogenicity suggesting intrinsic/ medical renal disease. Question indwelling left ureteral stent versus artifact. Bladder not visualized. 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 epi-11/2018, sp > 6weeks IV vancomycin 11/27 SP ABBIE: no evidence for vegetation on any of the valves 11/26/18 SP PPM removal: OR findings:The fibrous capsule enclosing the generator was then opened and there was a [id number] amount of yellowish fluid drainage. The generator was then removed.Atrial and ventricular leads were detached. The necrotic tissue of the pocket was then removed and the pocket was flushed with an antibiotic solution. Capsule, wound tissue and lead tip cx: Neg 2d echo: no vegetation seen US chest: 4.6 x 3.4 x 0.9 cm hypoechoic/anechoic area overlying left chest pacemaker power pack. This could represent either a discrete fluid collection or a focal area of very edematous tissue. Infected fluid pocket also possible. 11/18 Bcx 3/ S. epi; 11/20 Bcx neg; 11/24 Bcx Neg; 11/27 Bcx Neg Hx of PNA 11/2019? sp cx PsA (arnett S), ABC (I Ceftriaxone; otherwise negative) Sp cx MRSA, ABC (I Ceftriaxone; otherwise S) PMH: Afib HTN Dysphagia sp GT Aortic dissection s/p repair 2017, S/p PPM Parkinson's Disease Schizophrenia Anxiety COPD Chronic resp failure s/p trach Hx of tracheal bleeding NH resident ([facility]) Plan: Cont to monitor off abx unless febrile, recurrent leukocytosis -f/u ucx Trend resp status, leukocytosis 10/03 SP Zerbaxa #6, gent #7 for MDR PsA pna 09/29 SP vanco #15 for S.epi in BCx 09/27 SP angelo #13 8 SP Cefepime #3, Levaquin #3 Monitor CBC/CMP, temperatures ICU/ trach/ peg care Aspiration precautions D/w RN Thank you for this consultation. Will continue to follow along with you. Subjective Allergies: Coded Allergies: No Known Allergies (Unverified , 10/10/17) afebrile no leukocytosis Fio2 down to 30% Objective Last 24 Hour Vital Signs Date Time Temp Pulse Resp B/P (MAP) Pulse Ox O2 Delivery O2 Flow Rate FiO2 10/10/19 11:58 77 193/85 10/10/19 11:20 64 28 30 10/10/19 11:00 64 24 185/74 (111) 97 10/10/19 10:00 76 24 179/79 (112) 98 10/10/19 09:29 172/69 10/10/19 09:28 72 172/69 10/10/19 09:20 83 32 40 10/10/19 09:00 70 26 164/74 (104) 99 10/10/19 08:00 Mechanical Ventilator Mechanical Ventilator 10/10/19 08:00 65 10/10/19 08:00 98.1 75 25 167/73 (104) 98 10/10/19 08:00 40 10/10/19 07:30 77 25 173/73 (106) 98 10/10/19 07:22 72 26 99 Mechanical Ventilator 50 76 27 50 10/10/19 07:15 71 20 154/65 (94) 99 10/10/19 07:00 77 24 167/70 (102) 98 10/10/19 06:45 73 27 160/67 (98) 99 10/10/19 06:30 74 31 153/69 (97) 98 10/10/19 06:15 78 28 164/69 (100) 99 10/10/19 06:04 78 184/79 10/10/19 06:00 78 25 174/72 (106) 99 10/10/19 05:45 82 29 184/79 (114) 99 10/10/19 05:30 82 23 182/74 (110) 99 10/10/19 05:15 84 26 178/80 (112) 99 10/10/19 05:00 82 29 177/79 (111) 100 10/10/19 04:45 80 30 181/81 (114) 99 10/10/19 04:35 73 29 50 10/10/19 04:30 74 24 180/86 (117) 100 10/10/19 04:30 182/77 10/10/19 04:00 98.3 77 28 182/77 (112) 98 10/10/19 04:00 Mechanical Ventilator Mechanical Ventilator 10/10/19 04:00 40 10/10/19 03:45 81 28 197/79 (118) 97 10/10/19 03:37 84 10/10/19 03:30 82 26 214/93 (133) 97 10/10/19 03:15 73 28 50 10/10/19 03:15 66 28 180/87 (118) 98 10/10/19 03:00 66 25 163/61 (95) 98 10/10/19 02:45 70 26 170/72 (104) 99 10/10/19 02:30 70 26 173/69 (103) 99 10/10/19 02:15 70 27 175/68 (103) 99 10/10/19 02:00 67 27 174/69 (104) 99 10/10/19 01:45 70 28 177/72 (107) 99 10/10/19 01:30 70 28 175/69 (104) 99 10/10/19 01:15 71 21 177/70 (105) 99 10/10/19 01:13 65 28 100 Mechanical Ventilator 50 78 20 50 10/10/19 01:00 64 22 162/66 (98) 100 10/10/19 00:45 63 22 168/71 (103) 100 10/10/19 00:30 66 24 177/68 (104) 100 10/10/19 00:15 59 25 172/66 (101) 100 10/10/19 00:13 173/68 10/10/19 00:00 58 173/68 10/10/19 00:00 Mechanical Ventilator Mechanical Ventilator 10/10/19 00:00 98.2 59 25 173/68 (103) 99 10/10/19 00:00 63 820 23:45 62 25 167/72 (103) 100 10/09/19 23:30 64 20 178/70 (106) 100 10/09/19 23:15 57 24 162/63 (96) 100 10/09/19 23:14 66 26 50 8 23:00 60 26 168/59 (95) 99 20 22:45 60 27 166/64 (98) 99 10/09/19 22:30 66 23 182/72 (108) 97 10/09/19 22:15 67 26 175/75 (108) 79 10/09/19 22:00 67 22 178/68 (104) 100 10/09/19 21:45 63 24 173/68 (103) 100 10/09/19 21:30 64 25 171/65 (100) 100 10/09/19 21:15 71 28 165/73 (103) 96 10/09/19 21:00 87 29 191/85 (120) 96 10/09/19 20:56 70 181/71 10/09/19 20:45 68 26 181/71 (107) 98 10/09/19 20:40 50 10/09/19 20:39 69 26 40 10/09/19 20:30 67 26 180/67 (104) 92 10/09/19 20:15 87 32 196/76 (116) 96 10/09/19 20:00 97.8 73 26 189/77 (114) 94 10/09/19 20:00 40 10/09/19 20:00 Mechanical Ventilator Mechanical Ventilator 10/09/19 19:30 69 22 166/72 (103) 94 10/09/19 19:20 68 10/09/19 19:15 67 25 168/70 (102) 94 10/09/19 19:05 64 24 100 Mechanical Ventilator 40 78 20 40 10/09/19 19:00 65 27 172/68 (102) 82 10/09/19 18:45 68 27 164/68 (100) 85 10/09/19 18:30 71 22 169/67 (101) 94 10/09/19 18:00 26 177/71 Mechanical Ventilator 40 10/09/19 18:00 73 27 177/71 (106) 93 8 17:52 145/59 10/09/19 17:30 76 25 158/66 (96) 93 10/09/19 17:21 97.9 10/09/19 17:20 97.9 10/09/19 17:00 23 145/59 Mechanical Ventilator 40 10/09/19 17:00 68 23 145/59 (87) 94 10/09/19 16:58 70 24 40 10/09/19 16:51 70 170/64 10/09/19 16:30 68 21 193/81 (118) 94 10/09/19 16:00 70 10/09/19 16:00 40 10/09/19 16:00 Mechanical Ventilator Mechanical Ventilator 10/09/19 16:00 24 170/64 Mechanical Ventilator 40 10/09/19 16:00 98.0 72 27 177/71 (106) 96 10/09/19 15:45 72 27 172/81 (111) 95 10/09/19 15:30 75 28 189/84 (119) 96 10/09/19 15:15 80 34 182/72 (108) 97 10/09/19 15:12 79 26 40 10/09/19 15:00 27 182/72 Mechanical Ventilator 40 10/09/19 15:00 80 29 189/80 (116) 95 10/09/19 14:45 78 25 191/81 (117) 97 10/09/19 14:30 72 26 180/74 (109) 95 10/09/19 14:00 72 22 191/79 (116) 96 10/09/19 14:00 28 183/70 Mechanical Ventilator 40 10/09/19 13:30 70 27 180/74 (109) 97 10/09/19 13:00 28 180/80 Mechanical Ventilator 40 10/09/19 13:00 81 28 180/80 (113) 95 10/09/19 12:50 71 21 100 Mechanical Ventilator 40 77 23 40 10/09/19 12:30 21 180/77 Mechanical Ventilator 50.0 40 10/09/19 12:30 23 180/77 Mechanical Ventilator 45 10/09/19 12:30 76 26 180/77 (111) 96 Height (Feet): 5 Height (Inches): 5.00 Weight (Pounds): 141 Cardiovascular: RrR Respiratory: decreased breath sounds Abdomen: soft, non-tender, present bowel sounds Extremities: no edema, no tenderness, no cyanosis Microbiology Date/Time Source Procedure Growth Status 10/08/19 16:40 Urine,Clean Catch Urine Culture - Preliminary Resulted Laboratory Tests Test 10/10/19 04:29 10/10/19 07:57 White Blood Count 8.6 K/UL (4.8-10.8) Red Blood Count 3.24 M/UL (4.20-5.40) L Hemoglobin 9.8 G/DL (12.0-16.0) L Hematocrit 30.3 % (37.0-47.0) L Mean Corpuscular Volume 93 FL (80-99) Mean Corpuscular Hemoglobin 30.4 PG (27.0-31.0) Mean Corpuscular Hemoglobin Concent 32.5 G/DL (32.0-36.0) Red Cell Distribution Width 13.8 % (11.6-14.8) Platelet Count 446 K/UL (150-450) Mean Platelet Volume 5.4 FL (6.5-10.1) L Neutrophils (%) (Auto) 79.7 % (45.0-75.0) H Lymphocytes (%) (Auto) 14.3 % (20.0-45.0) L Monocytes (%) (Auto) 4.5 % (1.0-10.0) Eosinophils (%) (Auto) 0.8 % (0.0-3.0) Basophils (%) (Auto) 0.6 % (0.0-2.0) Sodium Level 134 MMOL/L (136-145) L Potassium Level 3.6 MMOL/L (3.5-5.1) Chloride Level 100 MMOL/L (98-107) Carbon Dioxide Level 23 MMOL/L (21-32) Anion Gap 11 mmol/L (5-15) Blood Urea Nitrogen 68 mg/dL (7-18) H Creatinine 2.8 MG/DL (0.55-1.30) H Estimat Glomerular Filtration Rate 18.1 mL/min (>60) Glucose Level 118 MG/DL (74-106) H Calcium Level 9.4 MG/DL (8.5-10.1) Phosphorus Level 4.2 MG/DL (2.5-4.9) Magnesium Level 3.1 MG/DL (1.8-2.4) H Total Bilirubin 0.3 MG/DL (0.2-1.0) Direct Bilirubin 0.2 MG/DL (0.0-0.3) Aspartate Amino Transf (AST/SGOT) 26 U/L (15-37) Alanine Aminotransferase (ALT/SGPT) 12 U/L (12-78) Alkaline Phosphatase 171 U/L (46-116) H Total Protein 6.8 G/DL (6.4-8.2) Albumin 1.9 G/DL (3.4-5.0) L Arterial Blood pH 7.422 (7.350-7.450) Arterial Blood Partial Pressure CO2 32.4 mmHg (35.0-45.0) L Arterial Blood Partial Pressure O2 90.1 mmHg (75.0-100.0) Arterial Blood HCO3 20.6 mmol/L (22.0-26.0) L Arterial Blood Oxygen Saturation 96.6 % (95-100) Arterial Blood Base Excess -3.1 (-2-2) L Rojas Test Positive Current Medications Medications (Trade) Dose Ordered Sig/Penny Route PRN Reason Start Time Stop Time Status Last Admin Dose Admin Acetaminophen (Tylenol) 325 mg Q6H PRN GT Temp >100.5 09/23/19 10:45 10/23/19 10:44 09/23/19 18:55 Albuterol/ Ipratropium (Albuterol/ Ipratropium) 3 ml Q6HRT HHN 10/09/19 13:00 10/14/19 12:59 10/10/19 07:12 Ascorbic Acid (Vitamin C) 500 mg DAILY ORAL 10/06/19 09:00 11/05/19 08:59 10/10/19 09:27 Chlorhexidine Gluconate (Ling-Hex 2%) 1 applic DAILY@2000 TOPIC 09/23/19 20:00 12/22/19 19:59 10/09/19 20:54 Clonidine HCl (Catapres TTS-3) 1 patch QWEEK TDERMAL 10/17/19 09:00 01/08/20 08:59 Dextrose (Dextrose 50%) 25 ml Q30M PRN IV Hypoglycemia 10/05/19 18:30 01/03/20 18:29 Dextrose (Dextrose 50%) 50 ml Q30M PRN IV Hypoglycemia 10/05/19 18:30 01/03/20 18:29 Diltiazem HCl (Cardizem Tab) 90 mg Q6HR GT 10/10/19 12:00 11/09/19 11:59 10/10/19 11:58 Docusate Sodium (Colace) 100 mg Q8H GT 09/29/19 08:30 10/29/19 08:29 10/10/19 09:27 Epoetin Gelacio (Epoetin Gelacio(ESRD on dialysis)) 10,000 unit SUBQ 09/25/19 21:00 12/24/19 20:59 10/09/19 21:07 Fentanyl Citrate 250 ml @ 0 mls/hr Q24H IV 10/09/19 12:30 10/11/19 12:29 10/09/19 12:30 Haloperidol Lactate (Haldol) 5 mg Q6H PRN IM Agitation 10/08/19 11:00 11/22/19 10:59 10/10/19 00:12 Heparin Sodium (Porcine) (Heparin 5000 units/ml) 5,000 units EVERY 12 HOURS SUBQ 09/17/19 21:00 10/30/19 08:59 10/10/19 09:31 Hydralazine HCl (Apresoline) 10 mg Q4H PRN IV BP over 160 systolic 09/17/19 11:15 12/14/19 11:14 10/10/19 04:30 Insulin Aspart (NovoLOG) Q6HR SUBQ 10/06/19 00:00 01/03/20 20:59 Lactulose (Cephulac) 10 gm THREE TIMES A DAY ORAL 10/03/19 13:00 11/02/19 12:59 10/10/19 09:26 Lansoprazole (Prevacid) 30 mg Q12HR GT 09/27/19 21:00 10/27/19 20:59 10/10/19 09:27 Lisinopril (PriniviL) 20 mg BID GT 10/09/19 18:00 11/08/19 17:59 10/10/19 09:29 Metoclopramide HCl (Reglan) 5 mg EVERY 6 HOURS GT 10/09/19 12:00 11/08/19 11:59 10/10/19 11:58 Metoprolol Tartrate (Lopressor) 25 mg Q12HR GT 10/09/19 21:00 01/07/20 20:59 10/10/19 09:28 Midazolam HCl (Versed 2mg/2ml vial) 1 mg Q4H PRN IVP For Anxiety 09/21/19 09:30 10/14/19 09:29 10/10/19 02:50 Minoxidil (Loniten) 2.5 mg Q8HR ORAL 10/10/19 14:00 01/08/20 13:59 Morphine Sulfate (Morphine Sulfate) 2 mg Q4H PRN IVP For Pain 10/09/19 11:00 10/16/19 10:59 10/10/19 02:51 Polyethylene Glycol (Miralax) 17 gm BEDTIME ORAL 10/01/19 21:00 10/31/19 20:59 10/09/19 20:55 Risperidone (RisperDAL) 2 mg BEDTIME ORAL 10/05/19 21:00 11/19/19 20:59 10/09/19 20:55 Sertraline HCl (Zoloft) 100 mg BEDTIME GT 09/17/19 21:00 10/15/19 20:59 10/09/19 20:55 Sorbitol (sorbitoL) 30 ml EVERY 6 HOURS PRN GT Constipation 09/29/19 18:00 10/29/19 17:59 10/01/19 00:44 Vitamin B Complex/ Vit C/Folic Acid (Nephrovite) 1 tab DAILY ORAL 10/06/19 09:00 11/05/19 08:59 10/10/19 09:28 Zinc Sulfate (Zinc Sulfate) 220 mg DAILY ORAL 10/06/19 09:00 10/16/19 08:59 10/10/19 09:27 Doreen Nino M.D. Oct 10, 2019 12:12
[2019-10-10] MEDS ORDERED: Sterile Water Irrig 1000ml IRRIG ONE ×2 (12:15→13:31)
[2019-10-10] MEDS ORDERED: NS 275ml ONE ×2 (12:15→13:31)
[2019-10-10] MEDS: fentaNYL 2500mcg/NS 250ml 250 ML IV SCH (12:30)
--- NOTE | 2019-10-10 13:16 | Hematology/Onc Progress Note ---
Assessment/Plan Assessment/Plan Assessment and Recs # Leukocytosis, now with gram positive bacteremias well as pna noted --> historically --> PPM site (pocket) infection (redness and pain, bacteremia) and likely pocket abscess - no vegetation seen on ABBIE --> is s'p pm removal and also pocket infection is better --> per cards recs in re to tach/davis --> wbc 15-->19-->17-->15-->13->12-->13-->12>13-->18-->9-->7 --> ABX cefepime/levaquin--> vanc/angelo --> ID recs are noted # Anemia of chronic disease due to underlying chronic medical issues, multifactorial --> Anemia workup has been reviewed, cw acd --> No evidence of hemolysis is noted, peripheral smear has been reviewed. --> Hgb goal >7. Transfuse prn. --> Epogen started --> Medications have been reviewed --> low threshold for gi evaluation in case has occult + --> hgb 7.1-->7.8-->8.9->9.2-->8.5-->9.7-->10-->8.8-->9.6-->8.7->8.6-->7.2->8.7- >9.1-->9.2-->9-->8.7-->9.3 --> 1 unit prbc 09/27 # Thrombocytois is likely reactive process, is s/p infection --> plt trend 610k-->706k-->354 --> p smear reviewed # Acute hypoxic respiratory failure s/p intubation 11/23- ?ARDS --> on vent/trach # Gram positive bacteremia- real bacteremia- 2ry to above and probable PNA --> per id care # JAVIER initially >2 --> now improved with D5w # Dysphagia s/p peg # Thoracic aortic dissection s/p repair early 2017 # Psychiatric history on ativan/haldol # [place] resident # Dvt ppx heparin sq The timing of this note does not necessarily reflect the time of the patient was seen. Greatly appreciate consultation. Subjective Constitutional: Denies: no symptoms, chills, fever, malaise, weakness, other HEENT: Denies: no symptoms, eye pain, blurred vision, tearing, double vision, ear pain, ear discharge, nose pain, nose congestion, throat pain, throat swelling, mouth pain, mouth swelling, other Cardiovascular: Denies: no symptoms, chest pain, edema, irregular heart rate, lightheadedness, palpitations, syncope, other Respiratory: Denies: no symptoms, cough, shortness of breath, SOB with excertion, SOB at rest, sputum, wheezing, other Genitourinary: Denies: no symptoms, burning, discharge, frequency, flank pain, hematuria, incontinence, pain, urgency, other Neurologic/Psychiatric: Denies: no symptoms, anxiety, depressed, emotional problems, headache, numbness, paresthesia, pre-existing deficit, seizure, tingling, tremors, weakness, other Endocrine: Denies: no symptoms, excessive sweating, flushing, intolerance to cold, intolerance to heat, increased hunger, increased thirst, increased urine, unexplained weight gain, unexplained weight loss, other Allergies: Coded Allergies: No Known Allergies (Unverified , 10/10/17) Subjective 09/16 on vent now, consulted in am pulm, on vent setting, labs noted, hep sq 09/17 meds noted, cbc noted, labs noted, no bleeding 09/18 is to undergo potential v/q scan given abg, labs noted, resless, on ativan, to get haldol today, roman ramesh 09/19 remains agitated, covering, with sacral wound seeping, likely cause of anemia, roman ramesh 09/26 restless, remains agitated, gtube ripped, eval with rn, and vosoghi consulted 09/27 remains on vent, agitated, seen by gi, hgb low, roman George to transfuse 1 unit prbc 09/28 meds noted, no bleeding, on vent, s/p blood tranfusion, cbc pending, roman ramesh 09/29 remains in the icu, roman rn in the am, agitated, on versed, fentanyl, restraints 09/30 in icu, trach to vent, on gtube feeds, fentanyl, agitated 10/01 in icu, roman Ayoub rn, no bleeding, sleeping, labs noted, hgb >9 10/02 sedated in icu, is on vent, roman rn, more alert and more conversive with face grimaces 10/03 labs have been reviewed, no bleeding, icu, meds reviewed, on fentanyl and versed, to consult psych 10/05 remains on fentanyl, also with restraints, no bleeding, cbc ordered 10/06 remains obtunded, though reactive when proded, labs pending from am 10/07 hypertensive, asleep, no bleeding, dw rn, no major night sweats\ 10/08 formula leaking from gtube site, no bleeding, with some minor residual 10/09 remains on gtube feeds, on lactulose, no major changes, confused but nods Objective Objective Current Medications Medications (Trade) Dose Ordered Sig/Penny Route PRN Reason Start Time Stop Time Status Last Admin Dose Admin Acetaminophen (Tylenol) 325 mg Q6H PRN GT Temp >100.5 09/23/19 10:45 10/23/19 10:44 09/23/19 18:55 Albuterol/ Ipratropium (Albuterol/ Ipratropium) 3 ml Q6HRT HHN 10/09/19 13:00 10/14/19 12:59 10/10/19 07:12 Ascorbic Acid (Vitamin C) 500 mg DAILY ORAL 10/06/19 09:00 11/05/19 08:59 10/10/19 09:27 Chlorhexidine Gluconate (Ling-Hex 2%) 1 applic DAILY@2000 TOPIC 09/23/19 20:00 12/22/19 19:59 10/09/19 20:54 Clonidine HCl (Catapres TTS-3) 1 patch QWEEK TDERMAL 10/17/19 09:00 01/08/20 08:59 Dextrose (Dextrose 50%) 25 ml Q30M PRN IV Hypoglycemia 10/05/19 18:30 01/03/20 18:29 Dextrose (Dextrose 50%) 50 ml Q30M PRN IV Hypoglycemia 10/05/19 18:30 01/03/20 18:29 Diltiazem HCl (Cardizem Tab) 90 mg Q6HR GT 10/10/19 12:00 11/09/19 11:59 10/10/19 11:58 Docusate Sodium (Colace) 100 mg Q8H GT 09/29/19 08:30 10/29/19 08:29 10/10/19 09:27 Epoetin Gelacio (Epoetin Gelacio(ESRD on dialysis)) 10,000 unit SUBQ 09/25/19 21:00 12/24/19 20:59 10/09/19 21:07 Fentanyl Citrate 250 ml @ 0 mls/hr Q24H IV 10/09/19 12:30 10/11/19 12:29 10/09/19 12:30 Haloperidol Lactate (Haldol) 5 mg Q6H PRN IM Agitation 10/08/19 11:00 11/22/19 10:59 10/10/19 00:12 Heparin Sodium (Porcine) (Heparin 5000 units/ml) 5,000 units EVERY 12 HOURS SUBQ 09/17/19 21:00 10/30/19 08:59 10/10/19 09:31 Hydralazine HCl (Apresoline) 10 mg Q4H PRN IV BP over 160 systolic 09/17/19 11:15 12/14/19 11:14 10/10/19 04:30 Insulin Aspart (NovoLOG) Q6HR SUBQ 10/06/19 00:00 01/03/20 20:59 Lactulose (Cephulac) 10 gm THREE TIMES A DAY ORAL 10/03/19 13:00 11/02/19 12:59 10/10/19 09:26 Lansoprazole (Prevacid) 30 mg Q12HR GT 09/27/19 21:00 10/27/19 20:59 10/10/19 09:27 Lisinopril (PriniviL) 20 mg BID GT 10/09/19 18:00 11/08/19 17:59 10/10/19 09:29 Metoclopramide HCl (Reglan) 5 mg EVERY 6 HOURS GT 10/09/19 12:00 11/08/19 11:59 10/10/19 11:58 Metoprolol Tartrate (Lopressor) 25 mg Q12HR GT 10/09/19 21:00 01/07/20 20:59 10/10/19 09:28 Midazolam HCl (Versed 2mg/2ml vial) 1 mg Q4H PRN IVP For Anxiety 09/21/19 09:30 10/14/19 09:29 10/10/19 02:50 Minoxidil (Loniten) 2.5 mg Q8HR ORAL 10/10/19 14:00 01/08/20 13:59 Morphine Sulfate (Morphine Sulfate) 2 mg Q4H PRN IVP For Pain 10/09/19 11:00 10/16/19 10:59 10/10/19 02:51 Polyethylene Glycol (Miralax) 17 gm BEDTIME ORAL 10/01/19 21:00 10/31/19 20:59 10/09/19 20:55 Risperidone (RisperDAL) 2 mg BEDTIME ORAL 10/05/19 21:00 11/19/19 20:59 10/09/19 20:55 Sertraline HCl (Zoloft) 100 mg BEDTIME GT 09/17/19 21:00 10/15/19 20:59 10/09/19 20:55 Sorbitol (sorbitoL) 30 ml EVERY 6 HOURS PRN GT Constipation 09/29/19 18:00 10/29/19 17:59 10/01/19 00:44 Vitamin B Complex/ Vit C/Folic Acid (Nephrovite) 1 tab DAILY ORAL 10/06/19 09:00 11/05/19 08:59 10/10/19 09:28 Zinc Sulfate (Zinc Sulfate) 220 mg DAILY ORAL 10/06/19 09:00 10/16/19 08:59 10/10/19 09:27 Last 24 Hour Vital Signs Date Time Temp Pulse Resp B/P (MAP) Pulse Ox O2 Delivery O2 Flow Rate FiO2 10/10/19 13:00 98.4 82 28 199/85 (123) 92 10/10/19 12:23 40 10/10/19 12:00 Mechanical Ventilator Mechanical Ventilator 10/10/19 12:00 40 10/10/19 12:00 82 22 193/88 (123) 95 10/10/19 12:00 80 10/10/19 11:58 77 193/85 10/10/19 11:30 74 26 188/82 (117) 96 10/10/19 11:20 64 28 30 10/10/19 11:00 64 24 185/74 (111) 97 10/10/19 10:00 76 24 179/79 (112) 98 10/10/19 09:29 172/69 10/10/19 09:28 72 172/69 8/27/20 09:20 83 32 40 10/10/19 09:00 70 26 164/74 (104) 99 10/10/19 08:00 Mechanical Ventilator Mechanical Ventilator 10/10/19 08:00 65 10/10/19 08:00 98.1 75 25 167/73 (104) 98 10/10/19 08:00 40 10/10/19 07:30 77 25 173/73 (106) 98 10/10/19 07:22 72 26 99 Mechanical Ventilator 50 76 27 50 10/10/19 07:15 71 20 154/65 (94) 99 10/10/19 07:00 77 24 167/70 (102) 98 10/10/19 06:45 73 27 160/67 (98) 99 10/10/19 06:30 74 31 153/69 (97) 98 10/10/19 06:15 78 28 164/69 (100) 99 10/10/19 06:04 78 184/79 10/10/19 06:00 78 25 174/72 (106) 99 10/10/19 05:45 82 29 184/79 (114) 99 10/10/19 05:30 82 23 182/74 (110) 99 10/10/19 05:15 84 26 178/80 (112) 99 10/10/19 05:00 82 29 177/79 (111) 100 10/10/19 04:45 80 30 181/81 (114) 99 10/10/19 04:35 73 29 50 10/10/19 04:30 74 24 180/86 (117) 100 10/10/19 04:30 182/77 10/10/19 04:00 98.3 77 28 182/77 (112) 98 10/10/19 04:00 Mechanical Ventilator Mechanical Ventilator 10/10/19 04:00 40 10/10/19 03:45 81 28 197/79 (118) 97 10/10/19 03:37 84 10/10/19 03:30 82 26 214/93 (133) 97 10/10/19 03:15 73 28 50 10/10/19 03:15 66 28 180/87 (118) 98 10/10/19 03:00 66 25 163/61 (95) 98 10/10/19 02:45 70 26 170/72 (104) 99 10/10/19 02:30 70 26 173/69 (103) 99 10/10/19 02:15 70 27 175/68 (103) 99 10/10/19 02:00 67 27 174/69 (104) 99 10/10/19 01:45 70 28 177/72 (107) 99 10/10/19 01:30 70 28 175/69 (104) 99 10/10/19 01:15 71 21 177/70 (105) 99 10/10/19 01:13 65 28 100 Mechanical Ventilator 50 78 20 50 10/10/19 01:00 64 22 162/66 (98) 100 10/10/19 00:45 63 22 168/71 (103) 100 10/10/19 00:30 66 24 177/68 (104) 100 10/10/19 00:15 59 25 172/66 (101) 100 10/10/19 00:13 173/68 10/10/19 00:00 58 173/68 10/10/19 00:00 Mechanical Ventilator Mechanical Ventilator 10/10/19 00:00 98.2 59 25 173/68 (103) 99 10/10/19 00:00 63 10/09/19 23:45 62 25 167/72 (103) 100 10/09/19 23:30 64 20 178/70 (106) 100 10/09/19 23:15 57 24 162/63 (96) 100 10/09/19 23:14 66 26 50 10/09/19 23:00 60 26 168/59 (95) 99 10/09/19 22:45 60 27 166/64 (98) 99 10/09/19 22:30 66 23 182/72 (108) 97 10/09/19 22:15 67 26 175/75 (108) 79 10/09/19 22:00 67 22 178/68 (104) 100 10/09/19 21:45 63 24 173/68 (103) 100 10/09/19 21:30 64 25 171/65 (100) 100 10/09/19 21:15 71 28 165/73 (103) 96 10/09/19 21:00 87 29 191/85 (120) 96 10/09/19 20:56 70 181/71 10/09/19 20:45 68 26 181/71 (107) 98 10/09/19 20:40 50 8/26/20 20:39 69 26 40 10/09/19 20:30 67 26 180/67 (104) 92 10/09/19 20:15 87 32 196/76 (116) 96 10/09/19 20:00 97.8 73 26 189/77 (114) 94 10/09/19 20:00 40 10/09/19 20:00 Mechanical Ventilator Mechanical Ventilator 10/09/19 19:30 69 22 166/72 (103) 94 10/09/19 19:20 68 10/09/19 19:15 67 25 168/70 (102) 94 10/09/19 19:05 64 24 100 Mechanical Ventilator 40 78 20 40 10/09/19 19:00 65 27 172/68 (102) 82 10/09/19 18:45 68 27 164/68 (100) 85 10/09/19 18:30 71 22 169/67 (101) 94 10/09/19 18:00 26 177/71 Mechanical Ventilator 40 10/09/19 18:00 73 27 177/71 (106) 93 10/09/19 17:52 145/59 10/09/19 17:30 76 25 158/66 (96) 93 10/09/19 17:21 97.9 10/09/19 17:20 97.9 10/09/19 17:00 23 145/59 Mechanical Ventilator 40 10/09/19 17:00 68 23 145/59 (87) 94 10/09/19 16:58 70 24 40 10/09/19 16:51 70 170/64 10/09/19 16:30 68 21 193/81 (118) 94 10/09/19 16:00 70 10/09/19 16:00 40 10/09/19 16:00 Mechanical Ventilator Mechanical Ventilator 10/09/19 16:00 24 170/64 Mechanical Ventilator 40 10/09/19 16:00 98.0 72 27 177/71 (106) 96 10/09/19 15:45 72 27 172/81 (111) 95 10/09/19 15:30 75 28 189/84 (119) 96 10/09/19 15:15 80 34 182/72 (108) 97 10/09/19 15:12 79 26 40 10/09/19 15:00 27 182/72 Mechanical Ventilator 40 10/09/19 15:00 80 29 189/80 (116) 95 10/09/19 14:45 78 25 191/81 (117) 97 10/09/19 14:30 72 26 180/74 (109) 95 10/09/19 14:00 72 22 191/79 (116) 96 10/09/19 14:00 28 183/70 Mechanical Ventilator 40 10/09/19 13:30 70 27 180/74 (109) 97 10/09/19 13:00 28 180/80 Mechanical Ventilator 40 10/09/19 13:00 81 28 180/80 (113) 95 10/09/19 12:50 71 21 100 Mechanical Ventilator 40 77 23 40 10/09/19 12:30 21 180/77 Mechanical Ventilator 50.0 40 10/09/19 12:30 23 180/77 Mechanical Ventilator 45 10/09/19 12:30 76 26 180/77 (111) 96 10/09/19 12:00 45 10/09/19 12:00 98.0 75 24 183/80 (114) 96 10/09/19 12:00 74 10/09/19 12:00 Mechanical Ventilator Mechanical Ventilator 10/09/19 12:00 23 180/77 Mechanical Ventilator 45 10/09/19 11:52 73 193/89 10/09/19 11:30 76 26 192/82 (118) 97 10/09/19 11:00 24 193/89 Mechanical Ventilator 45 10/09/19 11:00 72 27 193/75 (114) 98 10/09/19 10:58 73 20 40 10/09/19 10:30 73 22 186/87 (120) 84 10/09/19 10:00 77 24 191/81 (117) 93 10/09/19 10:00 20 170/77 Mechanical Ventilator 45 10/09/19 09:30 69 20 183/75 (111) 98 10/09/19 09:26 63 20 40 10/09/19 09:00 69 21 162/71 (101) 99 10/09/19 09:00 20 180/71 Mechanical Ventilator 45 10/09/19 08:50 171/73 10/09/19 08:50 58 140/60 10/09/19 08:30 67 15 156/65 (95) 99 10/09/19 08:00 67 10/09/19 08:00 19 191/77 Mechanical Ventilator 45 10/09/19 08:00 45 10/09/19 08:00 97.9 72 14 191/77 (115) 98 10/09/19 08:00 Mechanical Ventilator Mechanical Ventilator 10/09/19 07:31 64 21 100 Mechanical Ventilator 45 59 20 45 10/09/19 07:30 61 20 176/69 (104) 100 10/09/19 07:00 66 20 171/73 (105) 97 10/09/19 07:00 20 171/73 Mechanical Ventilator 45 10/09/19 06:45 64 22 166/72 (103) 96 10/09/19 06:30 66 22 155/69 (97) 97 10/09/19 06:15 62 19 160/64 (96) 98 10/09/19 06:00 20 156/59 Mechanical Ventilator 45 10/09/19 06:00 54 20 156/59 (91) 95 10/09/19 05:45 53 20 139/59 (85) 97 10/09/19 05:30 54 20 147/60 (89) 97 10/09/19 05:15 62 17 161/61 (94) 100 10/09/19 05:15 58 152/66 10/09/19 05:02 55 21 45 10/09/19 05:00 20 152/66 Mechanical Ventilator 45 10/09/19 05:00 54 20 152/66 (94) 96 10/09/19 04:45 57 19 152/67 (95) 97 10/09/19 04:30 55 20 159/65 (96) 96 10/09/19 04:15 54 19 144/62 (89) 96 10/09/19 04:00 45 10/09/19 04:00 98.5 54 19 153/65 (94) 97 10/09/19 04:00 Mechanical Ventilator Mechanical Ventilator 10/09/19 04:00 19 153/65 Mechanical Ventilator 45 10/09/19 03:45 55 20 140/65 (90) 96 10/09/19 03:30 61 19 156/62 (93) 97 10/09/19 03:15 61 24 155/61 (92) 97 10/09/19 03:00 61 10/09/19 03:00 62 22 164/63 (96) 97 10/09/19 03:00 22 164/63 Mechanical Ventilator 45 10/09/19 02:45 56 20 143/59 (87) 96 10/09/19 02:35 58 22 45 10/09/19 02:30 53 20 145/59 (87) 96 10/09/19 02:15 53 17 145/59 (87) 97 10/09/19 02:12 53 13 135/58 (83) 96 10/09/19 02:00 53 12 132/56 (81) 96 10/09/19 02:00 19 125/55 Mechanical Ventilator 45 10/09/19 01:45 54 18 131/57 (81) 96 10/09/19 01:45 18 131/57 Mechanical Ventilator 45 10/09/19 01:30 58 20 143/65 (91) 96 10/09/19 01:30 20 143/65 Mechanical Ventilator 45 10/09/19 01:15 58 20 125/55 (78) 97 10/09/19 01:15 20 125/55 Mechanical Ventilator 45 10/09/19 01:01 59 20 98 Mechanical Ventilator 45 61 20 45 10/09/19 01:01 57 118/54 Mechanical Ventilator 45 10/09/19 01:00 61 20 137/64 (88) 98 10/09/19 00:45 53 20 118/54 (75) 98 10/09/19 00:30 55 20 116/51 (72) 97 10/09/19 00:15 58 20 123/52 (75) 97 10/09/19 00:00 Mechanical Ventilator Mechanical Ventilator 10/09/19 00:00 97.9 58 20 119/52 (74) 97 10/08/19 23:49 59 10/08/19 23:47 57 119/52 10/08/19 23:45 58 20 124/47 (72) 97 10/08/19 23:30 56 20 119/52 (74) 95 10/08/19 23:15 56 20 122/53 (76) 95 10/08/19 23:08 20 122/53 Mechanical Ventilator 45 10/08/19 23:00 58 20 126/54 (78) 97 10/08/19 23:00 20 122/53 Mechanical Ventilator 45 10/08/19 22:45 60 20 144/59 (87) 96 10/08/19 22:37 54 20 45 10/08/19 22:30 20 144/59 Mechanical Ventilator 45 10/08/19 22:30 54 20 114/58 (76) 97 10/08/19 22:20 20 126/54 Mechanical Ventilator 45 20 22:15 54 20 126/54 (78) 95 20 22:10 54 124/54 Mechanical Ventilator 45 20 22:00 54 20 124/54 (77) 95 20 22:00 20 126/54 Mechanical Ventilator 45 20 21:45 54 20 123/53 (76) 96 20 21:30 54 123/53 Mechanical Ventilator 45 20 21:30 56 20 128/56 (80) 96 10/07/20 21:20 19 148/57 Mechanical Ventilator 45 10/08/19 21:15 64 19 148/57 (87) 98 10/08/19 21:10 19 136/58 Mechanical Ventilator 45 10/08/19 21:00 20 148/57 Mechanical Ventilator 45 20 21:00 54 136/58 20 21:00 56 19 136/58 (84) 97 10/08/19 20:49 56 20 45 10/08/19 20:45 56 20 139/101 (114) 96 10/08/19 20:30 55 22 132/60 (84) 96 10/08/19 20:15 56 23 136/61 (86) 96 10/08/19 20:00 62 10/08/19 20:00 98.1 55 22 137/58 (84) 97 10/08/19 20:00 Mechanical Ventilator Mechanical Ventilator 10/08/19 20:00 45 20 20:00 20 136/61 Mechanical Ventilator 45 10/08/19 19:30 55 21 127/56 (79) 97 20 19:00 98.4 57 26 141/60 (87) 99 20 19:00 16 127/56 Mechanical Ventilator 45 10/08/19 18:48 56 20 99 Mechanical Ventilator 60.0 45 54 20 45 20 18:47 131/60 10/07/20 18:31 57 19 131/60 (83) 97 20 18:00 18 126/56 Mechanical Ventilator 45 20 18:00 55 120/54 20 18:00 55 20 122/54 (76) 97 8/25/20 17:30 55 21 119/56 (77) 97 10/08/19 17:00 56 22 117/51 (73) 97 10/08/19 17:00 18 126/56 Mechanical Ventilator 45 10/08/19 16:30 60 20 122/52 (75) 95 10/08/19 16:00 50 10/08/19 16:00 63 23 119/50 (73) 95 10/08/19 16:00 Mechanical Ventilator Mechanical Ventilator 10/08/19 16:00 16 129/73 Mechanical Ventilator 50 10/08/19 16:00 60 10/08/19 15:30 64 22 143/56 (85) 95 10/08/19 15:29 63 20 1 45 10/08/19 15:00 68 24 135/57 (83) 96 10/08/19 15:00 20 130/80 Mechanical Ventilator 50 10/08/19 14:30 66 18 137/55 (82) 96 10/08/19 14:00 69 23 150/62 (91) 99 10/08/19 14:00 23 154/63 Mechanical Ventilator 60 10/08/19 13:44 75 21 100 Mechanical Ventilator 50 75 25 60 10/08/19 13:30 87 27 190/81 (117) 98 Intake and Output 10/09/19 10/10/19 19:00 07:00 Intake Total 670.5 ml 640 ml Output Total 270 ml 290 ml Balance 400.5 ml 350 ml Intake Free Water 200 ml IV Total 50.5 ml Tube Feeding 360 ml 440 ml Other 260 ml Output Urine Total 270 ml 290 ml # Bowel Movements 2 Labs Test 10/07/19 17:17 10/08/19 03:15 10/08/19 05:26 10/08/19 16:40 POC Whole Blood Glucose 97 MG/DL (74-106) 103 MG/DL (74-106) White Blood Count 12.1 K/UL (4.8-10.8) Red Blood Count 2.98 M/UL (4.20-5.40) Hemoglobin 9.3 G/DL (12.0-16.0) Hematocrit 28.8 % (37.0-47.0) Mean Corpuscular Volume 97 FL (80-99) Mean Corpuscular Hemoglobin 31.1 PG (27.0-31.0) Mean Corpuscular Hemoglobin Concent 32.2 G/DL (32.0-36.0) Red Cell Distribution Width 14.9 % (11.6-14.8) Platelet Count 419 K/UL (150-450) Mean Platelet Volume 5.9 FL (6.5-10.1) Neutrophils (%) (Auto) 83.2 % (45.0-75.0) Lymphocytes (%) (Auto) 11.4 % (20.0-45.0) Monocytes (%) (Auto) 4.3 % (1.0-10.0) Eosinophils (%) (Auto) 0.4 % (0.0-3.0) Basophils (%) (Auto) 0.8 % (0.0-2.0) Sodium Level 134 MMOL/L (136-145) Potassium Level 4.0 MMOL/L (3.5-5.1) Chloride Level 101 MMOL/L (98-107) Carbon Dioxide Level 24 MMOL/L (21-32) Anion Gap 9 mmol/L (5-15) Blood Urea Nitrogen 54 mg/dL (7-18) Creatinine 2.5 MG/DL (0.55-1.30) Estimat Glomerular Filtration Rate 20.6 mL/min (>60) Glucose Level 106 MG/DL (74-106) Calcium Level 8.8 MG/DL (8.5-10.1) Urine Color Yellow Urine Appearance Very cloudy Urine pH 6.0 (4.5-8.0) Urine Specific [place] 1.015 (1.005-1.035) Urine Protein 4+ (NEGATIVE) Urine Glucose (UA) Negative (NEGATIVE) Urine Ketones Negative (NEGATIVE) Urine Blood 4+ (NEGATIVE) Urine Nitrite Negative (NEGATIVE) Urine Bilirubin Negative (NEGATIVE) Urine Urobilinogen Normal MG/DL (0.0-1.0) Urine Leukocyte Esterase 4+ (NEGATIVE) Urine RBC 60-80 /HPF (0 - 2) Urine WBC Tntc /HPF (0 - 2) Urine Squamous Epithelial Cells Moderate /LPF (NONE/OCC) Urine Bacteria Many /HPF (NONE) Urine Yeast Few /HPF (NONE) Test 10/09/19 04:00 10/09/19 05:19 10/10/19 04:29 10/10/19 07:57 White Blood Count 6.7 K/UL (4.8-10.8) 8.6 K/UL (4.8-10.8) Red Blood Count 3.36 M/UL (4.20-5.40) 3.24 M/UL (4.20-5.40) Hemoglobin 10.3 G/DL (12.0-16.0) 9.8 G/DL (12.0-16.0) Hematocrit 32.0 % (37.0-47.0) 30.3 % (37.0-47.0) Mean Corpuscular Volume 95 FL (80-99) 93 FL (80-99) Mean Corpuscular Hemoglobin 30.5 PG (27.0-31.0) 30.4 PG (27.0-31.0) Mean Corpuscular Hemoglobin Concent 32.1 G/DL (32.0-36.0) 32.5 G/DL (32.0-36.0) Red Cell Distribution Width 14.1 % (11.6-14.8) 13.8 % (11.6-14.8) Platelet Count 432 K/UL (150-450) 446 K/UL (150-450) Mean Platelet Volume 5.8 FL (6.5-10.1) 5.4 FL (6.5-10.1) Neutrophils (%) (Auto) 75.5 % (45.0-75.0) 79.7 % (45.0-75.0) Lymphocytes (%) (Auto) 17.2 % (20.0-45.0) 14.3 % (20.0-45.0) Monocytes (%) (Auto) 5.7 % (1.0-10.0) 4.5 % (1.0-10.0) Eosinophils (%) (Auto) 0.4 % (0.0-3.0) 0.8 % (0.0-3.0) Basophils (%) (Auto) 1.3 % (0.0-2.0) 0.6 % (0.0-2.0) Sodium Level 134 MMOL/L (136-145) 134 MMOL/L (136-145) Potassium Level 4.2 MMOL/L (3.5-5.1) 3.6 MMOL/L (3.5-5.1) Chloride Level 99 MMOL/L (98-107) 100 MMOL/L (98-107) Carbon Dioxide Level 23 MMOL/L (21-32) 23 MMOL/L (21-32) Anion Gap 12 mmol/L (5-15) 11 mmol/L (5-15) Blood Urea Nitrogen 68 mg/dL (7-18) 68 mg/dL (7-18) Creatinine 2.9 MG/DL (0.55-1.30) 2.8 MG/DL (0.55-1.30) Estimat Glomerular Filtration Rate 17.4 mL/min (>60) 18.1 mL/min (>60) Glucose Level 92 MG/DL (74-106) 118 MG/DL (74-106) Calcium Level 9.0 MG/DL (8.5-10.1) 9.4 MG/DL (8.5-10.1) Total Bilirubin 0.4 MG/DL (0.2-1.0) 0.3 MG/DL (0.2-1.0) Aspartate Amino Transf (AST/SGOT) 25 U/L (15-37) 26 U/L (15-37) Alanine Aminotransferase (ALT/SGPT) 8 U/L (12-78) 12 U/L (12-78) Alkaline Phosphatase 167 U/L (46-116) 171 U/L (46-116) Total Protein 7.3 G/DL (6.4-8.2) 6.8 G/DL (6.4-8.2) Albumin 1.6 G/DL (3.4-5.0) 1.9 G/DL (3.4-5.0) Globulin 5.7 g/dL Albumin/Globulin Ratio 0.3 (1.0-2.7) Phosphorus Level 4.2 MG/DL (2.5-4.9) Magnesium Level 3.1 MG/DL (1.8-2.4) Direct Bilirubin 0.2 MG/DL (0.0-0.3) Arterial Blood pH 7.422 (7.350-7.450) Arterial Blood Partial Pressure CO2 32.4 mmHg (35.0-45.0) Arterial Blood Partial Pressure O2 90.1 mmHg (75.0-100.0) Arterial Blood HCO3 20.6 mmol/L (22.0-26.0) Arterial Blood Oxygen Saturation 96.6 % (95-100) Arterial Blood Base Excess -3.1 (-2-2) Rojas Test Positive Height (Feet): 5 Height (Inches): 5.00 Weight (Pounds): 141 Objective Physical Exam: Vitals: reviewed General: NAD HEENT: nc, at Neck: supple ++tracn/vent Chest: clear breath sounds bilaterally Cardiovascular: RRR, no s3, s4 Abdomen: soft, nontender, nd +gtube Extremities: no cce, normal range of motion Neuro: alert Evan Muhammad MD Oct 10, 2019 13:16
--- NOTE | 2019-10-10 13:22 | Surgery Progress Note ---
Surgery Progress Note Subjective Additional Comments weaning vent fent off no acute events labs okay Objective Last 24 Hour Vital Signs Date Time Temp Pulse Resp B/P (MAP) Pulse Ox O2 Delivery O2 Flow Rate FiO2 10/10/19 13:00 98.4 82 28 199/85 (123) 92 10/10/19 12:23 40 10/10/19 12:00 Mechanical Ventilator Mechanical Ventilator 10/10/19 12:00 40 10/10/19 12:00 82 22 193/88 (123) 95 10/10/19 12:00 80 10/10/19 11:58 77 193/85 10/10/19 11:30 74 26 188/82 (117) 96 10/10/19 11:20 64 28 30 10/10/19 11:00 64 24 185/74 (111) 97 10/10/19 10:00 76 24 179/79 (112) 98 10/10/19 09:29 172/69 10/10/19 09:28 72 172/69 10/10/19 09:20 83 32 40 10/10/19 09:00 70 26 164/74 (104) 99 10/10/19 08:00 Mechanical Ventilator Mechanical Ventilator 10/10/19 08:00 65 10/10/19 08:00 98.1 75 25 167/73 (104) 98 10/10/19 08:00 40 10/10/19 07:30 77 25 173/73 (106) 98 10/10/19 07:22 72 26 99 Mechanical Ventilator 50 76 27 50 10/10/19 07:15 71 20 154/65 (94) 99 10/10/19 07:00 77 24 167/70 (102) 98 10/10/19 06:45 73 27 160/67 (98) 99 10/10/19 06:30 74 31 153/69 (97) 98 10/10/19 06:15 78 28 164/69 (100) 99 10/10/19 06:04 78 184/79 10/10/19 06:00 78 25 174/72 (106) 99 10/10/19 05:45 82 29 184/79 (114) 99 10/10/19 05:30 82 23 182/74 (110) 99 10/10/19 05:15 84 26 178/80 (112) 99 10/10/19 05:00 82 29 177/79 (111) 100 8/27/20 04:45 80 30 181/81 (114) 99 10/10/19 04:35 73 29 50 10/10/19 04:30 74 24 180/86 (117) 100 10/10/19 04:30 182/77 10/10/19 04:00 98.3 77 28 182/77 (112) 98 10/10/19 04:00 Mechanical Ventilator Mechanical Ventilator 10/10/19 04:00 40 10/10/19 03:45 81 28 197/79 (118) 97 10/10/19 03:37 84 10/10/19 03:30 82 26 214/93 (133) 97 10/10/19 03:15 73 28 50 10/10/19 03:15 66 28 180/87 (118) 98 10/10/19 03:00 66 25 163/61 (95) 98 10/10/19 02:45 70 26 170/72 (104) 99 10/10/19 02:30 70 26 173/69 (103) 99 10/10/19 02:15 70 27 175/68 (103) 99 10/10/19 02:00 67 27 174/69 (104) 99 10/10/19 01:45 70 28 177/72 (107) 99 10/10/19 01:30 70 28 175/69 (104) 99 10/10/19 01:15 71 21 177/70 (105) 99 10/10/19 01:13 65 28 100 Mechanical Ventilator 50 78 20 50 10/10/19 01:00 64 22 162/66 (98) 100 10/10/19 00:45 63 22 168/71 (103) 100 10/10/19 00:30 66 24 177/68 (104) 100 10/10/19 00:15 59 25 172/66 (101) 100 10/10/19 00:13 173/68 10/10/19 00:00 58 173/68 10/10/19 00:00 Mechanical Ventilator Mechanical Ventilator 10/10/19 00:00 98.2 59 25 173/68 (103) 99 10/10/19 00:00 63 10/09/19 23:45 62 25 167/72 (103) 100 10/09/19 23:30 64 20 178/70 (106) 100 8/26/20 23:15 57 24 162/63 (96) 100 10/09/19 23:14 66 26 50 10/09/19 23:00 60 26 168/59 (95) 99 10/09/19 22:45 60 27 166/64 (98) 99 10/09/19 22:30 66 23 182/72 (108) 97 10/09/19 22:15 67 26 175/75 (108) 79 10/09/19 22:00 67 22 178/68 (104) 100 10/09/19 21:45 63 24 173/68 (103) 100 10/09/19 21:30 64 25 171/65 (100) 100 10/09/19 21:15 71 28 165/73 (103) 96 10/09/19 21:00 87 29 191/85 (120) 96 10/09/19 20:56 70 181/71 10/09/19 20:45 68 26 181/71 (107) 98 10/09/19 20:40 50 10/09/19 20:39 69 26 40 10/09/19 20:30 67 26 180/67 (104) 92 10/09/19 20:15 87 32 196/76 (116) 96 10/09/19 20:00 97.8 73 26 189/77 (114) 94 10/09/19 20:00 40 10/09/19 20:00 Mechanical Ventilator Mechanical Ventilator 10/09/19 19:30 69 22 166/72 (103) 94 10/09/19 19:20 68 10/09/19 19:15 67 25 168/70 (102) 94 10/09/19 19:05 64 24 100 Mechanical Ventilator 40 78 20 40 10/09/19 19:00 65 27 172/68 (102) 82 10/09/19 18:45 68 27 164/68 (100) 85 10/09/19 18:30 71 22 169/67 (101) 94 10/09/19 18:00 26 177/71 Mechanical Ventilator 40 10/09/19 18:00 73 27 177/71 (106) 93 10/09/19 17:52 145/59 10/09/19 17:30 76 25 158/66 (96) 93 10/09/19 17:21 97.9 10/09/19 17:20 97.9 10/09/19 17:00 23 145/59 Mechanical Ventilator 40 8/26/20 17:00 68 23 145/59 (87) 94 10/09/19 16:58 70 24 40 10/09/19 16:51 70 170/64 10/09/19 16:30 68 21 193/81 (118) 94 10/09/19 16:00 70 10/09/19 16:00 40 10/09/19 16:00 Mechanical Ventilator Mechanical Ventilator 10/09/19 16:00 24 170/64 Mechanical Ventilator 40 10/09/19 16:00 98.0 72 27 177/71 (106) 96 10/09/19 15:45 72 27 172/81 (111) 95 10/09/19 15:30 75 28 189/84 (119) 96 10/09/19 15:15 80 34 182/72 (108) 97 10/09/19 15:12 79 26 40 10/09/19 15:00 27 182/72 Mechanical Ventilator 40 10/09/19 15:00 80 29 189/80 (116) 95 10/09/19 14:45 78 25 191/81 (117) 97 10/09/19 14:30 72 26 180/74 (109) 95 10/09/19 14:00 72 22 191/79 (116) 96 10/09/19 14:00 28 183/70 Mechanical Ventilator 40 10/09/19 13:30 70 27 180/74 (109) 97 I&O Intake and Output 10/09/19 10/10/19 19:00 07:00 Intake Total 670.5 ml 640 ml Output Total 270 ml 290 ml Balance 400.5 ml 350 ml Intake Free Water 200 ml IV Total 50.5 ml Tube Feeding 360 ml 440 ml Other 260 ml Output Urine Total 270 ml 290 ml # Bowel Movements 2 Dressing: saturated Cardiovascular: RSR Respiratory: decreased breath sounds Abdomen: soft, non-tender, present bowel sounds Extremities: no tenderness, no cyanosis Laboratory Tests Test 10/10/19 04:29 10/10/19 07:57 White Blood Count 8.6 K/UL (4.8-10.8) Red Blood Count 3.24 M/UL (4.20-5.40) L Hemoglobin 9.8 G/DL (12.0-16.0) L Hematocrit 30.3 % (37.0-47.0) L Mean Corpuscular Volume 93 FL (80-99) Mean Corpuscular Hemoglobin 30.4 PG (27.0-31.0) Mean Corpuscular Hemoglobin Concent 32.5 G/DL (32.0-36.0) Red Cell Distribution Width 13.8 % (11.6-14.8) Platelet Count 446 K/UL (150-450) Mean Platelet Volume 5.4 FL (6.5-10.1) L Neutrophils (%) (Auto) 79.7 % (45.0-75.0) H Lymphocytes (%) (Auto) 14.3 % (20.0-45.0) L Monocytes (%) (Auto) 4.5 % (1.0-10.0) Eosinophils (%) (Auto) 0.8 % (0.0-3.0) Basophils (%) (Auto) 0.6 % (0.0-2.0) Sodium Level 134 MMOL/L (136-145) L Potassium Level 3.6 MMOL/L (3.5-5.1) Chloride Level 100 MMOL/L (98-107) Carbon Dioxide Level 23 MMOL/L (21-32) Anion Gap 11 mmol/L (5-15) Blood Urea Nitrogen 68 mg/dL (7-18) H Creatinine 2.8 MG/DL (0.55-1.30) H Estimat Glomerular Filtration Rate 18.1 mL/min (>60) Glucose Level 118 MG/DL (74-106) H Calcium Level 9.4 MG/DL (8.5-10.1) Phosphorus Level 4.2 MG/DL (2.5-4.9) Magnesium Level 3.1 MG/DL (1.8-2.4) H Total Bilirubin 0.3 MG/DL (0.2-1.0) Direct Bilirubin 0.2 MG/DL (0.0-0.3) Aspartate Amino Transf (AST/SGOT) 26 U/L (15-37) Alanine Aminotransferase (ALT/SGPT) 12 U/L (12-78) Alkaline Phosphatase 171 U/L (46-116) H Total Protein 6.8 G/DL (6.4-8.2) Albumin 1.9 G/DL (3.4-5.0) L Arterial Blood pH 7.422 (7.350-7.450) Arterial Blood Partial Pressure CO2 32.4 mmHg (35.0-45.0) L Arterial Blood Partial Pressure O2 90.1 mmHg (75.0-100.0) Arterial Blood HCO3 20.6 mmol/L (22.0-26.0) L Arterial Blood Oxygen Saturation 96.6 % (95-100) Arterial Blood Base Excess -3.1 (-2-2) L Rojas Test Positive Plan Problems: (1) Anemia (2) Proteinuria (3) UTI (urinary tract infection) (4) ARF (acute renal failure) (5) ACS (acute coronary syndrome) (6) Respiratory failure, acute and chronic (7) HCAP (healthcare-associated pneumonia) (8) Abrasion of lip, initial encounter (9) COPD with exacerbation (10) Hypokalemia (11) Sepsis Assessment & Plan: Leukocytosis, anemia, abnormal labs. Renal insufficiency potentially dehydrated Abnormal LFTs alk phos elevated Urine noted significant bacteria likely UTI etiology Wound stable still requiring local care IV antibiotics per infectious disease Discussed with photographer lithographic Dr. Berkowitz air mattress turn q2h nutritional tf will follow with recs thank you CT noted pending VQ scan - noted poor study low prob PE work respiratory increasing needs sedation weaning vent settings 80% peep 10 now comfortable Hd line in receiving HD plan for left thora 09/26 cont weaning vent as tolerated (12) Chronic respiratory failure (13) Ascites (14) Bacteremia (15) Hypernatremia (16) Pleural effusion (17) Pacemaker (18) Aortic dissection, thoracic (19) Tracheostomy in place Assessment & Plan: trach stable no bleeding currently likely tongue etiology of mild oozing currently hemostatic without trauma (20) Feeding by G-tube Assessment & Plan: okay to resume tube feeds via g tube patent and functional dressings okay DAILY ESTIMATED NEEDS: Needs based on Pulmonary, wound 49kg 30-35 kcals/kg 9415-7707 total kcals 1.25-2 g protein/kg 61-98 g total protein Fluid per MD NUTRITION DIAGNOSIS: * Swallowing difficulty R/T dysphagia, respiratory status as evidenced by vent dep via T-collar, GT Dep. (CURRENT TF: Nepro @45ml/hr x 24 hrs) ENTERAL NUTRITION RECOMMENDATIONS: Nepro @ 40ml/hr x 24 hrs to provide 960ml, 1728kcal, 78g prot, 698ml free water * Rec LOWER current rate to 40ml/hr for 24 hrs run. 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 Base of wound is granular with bone exposure at base of sacrococcygeal.(L)10.5cm x (W06.5cm x (D) 2.8cm , undermining 11-3 by 3.6cm @12 o'clock. small amt serosanguineous exudate noted . [place] epithelial along edges bordered by darker skin tone without erythema. Resolving Pressure injury L ischium. Base of wound is 95% pink epithelial ,5% noni at center base of wound. No exudate noted. Both heels are boggy with non-Blanching erythema. Tx.plan: Cleanse Sacral wound with Saline. Loosely pack with Hydrogel impregnated Kerlix. Apply Moisture Barrier Periwound. Cover with Optifoam drsg Daily and prn. Apply Moisture Barrier paste to L Ischium. Cover with Optifoam drsg. Changee very 3 days and prn. Apply Cavilon Skin Barrier to both heels. Cover each heel with Optifoam drsgs. Change every 7 days and prn. Reposition at least every 2hours or as tolerated. Off-load heels with pillow. APM/JENNIFER Mattress overlay. Lane Saavedra Oct 10, 2019 13:22
[2019-10-10] MEDS: Minoxidil 2.5mg tab ORAL SCH ×2 (13:28→21:06)
--- NOTE | 2019-10-10 14:08 | Pulmonolgy Critical Care Note ---
Yara Castro KETTLE OPERATOR 10/10/19 1407: Critical Care - Asmt/Plan Assessment/Plan: ASSESSMENT Acute on chronic hypoxemic respiratory failure ( trach dependent), now on vent Tracheostomy status, s/p change to cuffed trach Sepsis Pulmonary edema Pleural effusion -worsening left pl effusion s/p thoracentesis L pleural effusion 09/26 -900 ml Pneumonia with MDR Pseudomonas UTI CHF ? cardiorenal COPD Acute kidney injury and chronic kidney disease-requiring start of HD Hypertension Atrial fibrillation Moderate pulm HTN Moderate AR Dysphagia , feeding by G-tube Electrolyte abnormalities Anemia Toxic metabolic encephalopathy likely due to sepsis and ARF HTN PAF PLAN OF CARE ICU on vent AC trach changed 8/4 pm from uncuffed to cuffed Shiley#[address] chest w/out contrast: - Bilateral pleural effusions, right greater than left, with bilateral lower lobe consolidation or volume loss. -Ground-glass densities in the upper lobes bilaterally. This is not specific. -Tracheostomy. -Increased superior mediastinal density. Stability of adenopathy cannot be excluded. -Atherosclerotic change. -Gastrostomy. -Ascites. -Left renal stent with left hydronephrosis and renal atrophy. VQ scan -> low probability for PE worsening resp status was due to need for HD, now after HD started, resp status improving, down to PEEP 5 and AC 20 trach care , pulmonary toilet Mucomyst was prior dc given lots of thin secretions, continue Duoneb prn rapid COVID 19 NGT x3 now off Fentanyl gtt FiO2 down to 30% ABG stable this am s/p thoracentesis L pleural effusion 09/26 am -> 900 ml fluid analysis noted, unlikely empyema given small # of WBC fup with fluid cx ( apparently never sent despite orders) cytology -> NGT, no malignant cells aspiration precautions venous Duplex BLE -> NGT DVT prophylaxis pulm toilet, BP elevated BP regimen optimized as per nephro monitor volumes was on gentle IVF-> dc s/p prior diuretic-Lasix require initiation of HD continue further HD as per nephro with close monitoring of volumes, renal parameters and lytes -per nephro recs abx as per ID- s/p gent x 1, now on Vanco and Zerbaxa , completed 10/02 SCX 8/3 + Proteus, SCX 8 Pseudomonas MDR UCX 8/2 + Providencia , UCX 8/10 VRE -20 K only BCX 09/14 Staph epidermidis, BCX 09/15 NGT , BCX 09/22 and 09/26 - NGTD UA 10/07 noted, fup with UCX -monitor off abx as per ID recs ECHO with pEF , moderate pulm HTN and moderate AR BP management with current regimen of BB, Cardizem and Hydralazine, remains in SR monitor HH with goal to keep Hgb >7, heme on board on EPO supportive care pain management wound care bowel regimen can be transferred to PA[facility]IE plan to start CPAP trials in am as tolerated thank you for a consult Critical Care - Objective Last 24 Hour Vital Signs Date Time Temp Pulse Resp B/P (MAP) Pulse Ox O2 Delivery O2 Flow Rate FiO2 10/10/19 13:28 199/85 10/10/19 13:28 199/85 10/10/19 13:00 98.4 82 28 199/85 (123) 92 10/10/19 12:23 40 10/10/19 12:00 Mechanical Ventilator Mechanical Ventilator 10/10/19 12:00 40 10/10/19 12:00 82 22 193/88 (123) 95 10/10/19 12:00 80 10/10/19 11:58 77 193/85 10/10/19 11:30 74 26 188/82 (117) 96 10/10/19 11:20 64 28 30 10/10/19 11:00 64 24 185/74 (111) 97 10/10/19 10:00 76 24 179/79 (112) 98 10/10/19 09:29 172/69 10/10/19 09:28 72 172/69 10/10/19 09:20 83 32 40 10/10/19 09:00 70 26 164/74 (104) 99 10/10/19 08:00 Mechanical Ventilator Mechanical Ventilator 10/10/19 08:00 65 10/10/19 08:00 98.1 75 25 167/73 (104) 98 10/10/19 08:00 40 10/10/19 07:30 77 25 173/73 (106) 98 10/10/19 07:22 72 26 99 Mechanical Ventilator 50 76 27 50 10/10/19 07:15 71 20 154/65 (94) 99 10/10/19 07:00 77 24 167/70 (102) 98 10/10/19 06:45 73 27 160/67 (98) 99 10/10/19 06:30 74 31 153/69 (97) 98 10/10/19 06:15 78 28 164/69 (100) 99 10/10/19 06:04 78 184/79 10/10/19 06:00 78 25 174/72 (106) 99 10/10/19 05:45 82 29 184/79 (114) 99 10/10/19 05:30 82 23 182/74 (110) 99 10/10/19 05:15 84 26 178/80 (112) 99 10/10/19 05:00 82 29 177/79 (111) 100 10/10/19 04:45 80 30 181/81 (114) 99 10/10/19 04:35 73 29 50 10/10/19 04:30 74 24 180/86 (117) 100 10/10/19 04:30 182/77 10/10/19 04:00 98.3 77 28 182/77 (112) 98 10/10/19 04:00 Mechanical Ventilator Mechanical Ventilator 10/10/19 04:00 40 10/10/19 03:45 81 28 197/79 (118) 97 10/10/19 03:37 84 10/10/19 03:30 82 26 214/93 (133) 97 10/10/19 03:15 73 28 50 10/10/19 03:15 66 28 180/87 (118) 98 10/10/19 03:00 66 25 163/61 (95) 98 10/10/19 02:45 70 26 170/72 (104) 99 10/10/19 02:30 70 26 173/69 (103) 99 10/10/19 02:15 70 27 175/68 (103) 99 10/10/19 02:00 67 27 174/69 (104) 99 10/10/19 01:45 70 28 177/72 (107) 99 10/10/19 01:30 70 28 175/69 (104) 99 10/10/19 01:15 71 21 177/70 (105) 99 10/10/19 01:13 65 28 100 Mechanical Ventilator 50 78 20 50 10/10/19 01:00 64 22 162/66 (98) 100 10/10/19 00:45 63 22 168/71 (103) 100 10/10/19 00:30 66 24 177/68 (104) 100 10/10/19 00:15 59 25 172/66 (101) 100 10/10/19 00:13 173/68 10/10/19 00:00 58 173/68 10/10/19 00:00 Mechanical Ventilator Mechanical Ventilator 10/10/19 00:00 98.2 59 25 173/68 (103) 99 10/10/19 00:00 63 10/09/19 23:45 62 25 167/72 (103) 100 10/09/19 23:30 64 20 178/70 (106) 100 10/09/19 23:15 57 24 162/63 (96) 100 10/09/19 23:14 66 26 50 10/09/19 23:00 60 26 168/59 (95) 99 10/09/19 22:45 60 27 166/64 (98) 99 10/09/19 22:30 66 23 182/72 (108) 97 10/09/19 22:15 67 26 175/75 (108) 79 10/09/19 22:00 67 22 178/68 (104) 100 10/09/19 21:45 63 24 173/68 (103) 100 10/09/19 21:30 64 25 171/65 (100) 100 10/09/19 21:15 71 28 165/73 (103) 96 10/09/19 21:00 87 29 191/85 (120) 96 10/09/19 20:56 70 181/71 10/09/19 20:45 68 26 181/71 (107) 98 10/09/19 20:40 50 10/09/19 20:39 69 26 40 10/09/19 20:30 67 26 180/67 (104) 92 10/09/19 20:15 87 32 196/76 (116) 96 10/09/19 20:00 97.8 73 26 189/77 (114) 94 10/09/19 20:00 40 10/09/19 20:00 Mechanical Ventilator Mechanical Ventilator 10/09/19 19:30 69 22 166/72 (103) 94 10/09/19 19:20 68 10/09/19 19:15 67 25 168/70 (102) 94 10/09/19 19:05 64 24 100 Mechanical Ventilator 40 78 20 40 8/26/20 19:00 65 27 172/68 (102) 82 10/09/19 18:45 68 27 164/68 (100) 85 10/09/19 18:30 71 22 169/67 (101) 94 10/09/19 18:00 26 177/71 Mechanical Ventilator 40 10/09/19 18:00 73 27 177/71 (106) 93 10/09/19 17:52 145/59 10/09/19 17:30 76 25 158/66 (96) 93 10/09/19 17:21 97.9 10/09/19 17:20 97.9 10/09/19 17:00 23 145/59 Mechanical Ventilator 40 10/09/19 17:00 68 23 145/59 (87) 94 10/09/19 16:58 70 24 40 10/09/19 16:51 70 170/64 10/09/19 16:30 68 21 193/81 (118) 94 10/09/19 16:00 70 10/09/19 16:00 40 10/09/19 16:00 Mechanical Ventilator Mechanical Ventilator 10/09/19 16:00 24 170/64 Mechanical Ventilator 40 10/09/19 16:00 98.0 72 27 177/71 (106) 96 10/09/19 15:45 72 27 172/81 (111) 95 10/09/19 15:30 75 28 189/84 (119) 96 10/09/19 15:15 80 34 182/72 (108) 97 10/09/19 15:12 79 26 40 10/09/19 15:00 27 182/72 Mechanical Ventilator 40 10/09/19 15:00 80 29 189/80 (116) 95 10/09/19 14:45 78 25 191/81 (117) 97 10/09/19 14:30 72 26 180/74 (109) 95 Objective: General Appearance: no apparent distress, bedridden middle age chronically ill looking female on vent AC 500-20- 30%, PEEP 5, sedated Lines, tubes and drains: left jugular HD catheter HEENT: normocephalic, atraumatic, anicteric, trach - Shiley #7 cuffed XLT, secretions moderate amount, yellow color , thick consistency Respiratory/Chest: no accessory muscle use, few isolated rhonchi Cardiovascular/Chest: normal rate, regular rhythm - SR on tele Abdomen: normal bowel sounds, non tender, soft, G tube Genitourinary/Rectal: [place] Extremities: no edema Skin Exam: warm/dry, multiple tattoos all over the body Neurologic: abnormal gait, sedated Musculoskeletal: atrophy - BLE Micro: Microbiology Date/Time Source Procedure Growth Status 10/08/19 16:40 Urine,Clean Catch Urine Culture - Preliminary Resulted Accucheck: 108 Critical Care - Subjective ROS Limited/Unobtainable: Yes Interval Events: off fentanyl gtt ABG stable this am Fio2 down to 30% remains afebrile, no leukocytosis Condition: critical, improving IV Access: central - L interbal jugular HD catheter , intact EKG Rhythm: Sinus Rhythm FI02: 40 Vent Support Breath Rate: 20 Vent Support Mode: AC Vent Tidal Volume: 500 Sputum Amount: Small PEEP: 5.0 PIP: 24 Tube Feeding Amount: 40 I&O: Intake and Output 10/09/19 10/10/19 19:00 07:00 Intake Total 670.5 ml 640 ml Output Total 270 ml 290 ml Balance 400.5 ml 350 ml Intake Free Water 200 ml IV Total 50.5 ml Tube Feeding 360 ml 440 ml Other 260 ml Output Urine Total 270 ml 290 ml # Bowel Movements 2 CXR: 10/08 Dialysis catheter, tracheostomy remain. Left pleural effusion persists. Hazy right basilar haziness may reflect overlying soft tissue or could indicate some pleural fluid and/or consolidation, as well. Appearance of this is unchanged. Bang Guardado MD 10/10/192121: Critical Care - Asmt/Plan Assessment/Plan: Patient seen and examined with KETTLE OPERATOR. Agree with above A&P as it reflects our joint deliberations. -BP control HD per renal wean from ventilator minimize sedation Time Spent (Minutes): 40 - cc Yara Castro NP Oct 10, 2019 14:07 Bang Guardado MD Oct 10, 2019 21:22
--- NOTE | 2019-10-10 19:35 | General Progress Note ---
Assessment/Plan Status: stable Subjective Constitutional: Reports: diaphoresis, weakness HEENT: Reports: tearing Cardiovascular: Reports: no symptoms Respiratory: Reports: no symptoms Gastrointestinal/Abdominal: Reports: no symptoms Genitourinary: Reports: no symptoms Neurologic/Psychiatric: Reports: depressed, emotional problems Hematologic/Lymphatic: Reports: no symptoms Allergies: Coded Allergies: No Known Allergies (Unverified , 10/10/17) Objective Last 24 Hour Vital Signs Date Time Temp Pulse Resp B/P (MAP) Pulse Ox O2 Delivery O2 Flow Rate FiO2 10/10/19 19:15 94 32 96 Mechanical Ventilator 30 89 26 30 10/10/19 18:18 184/81 10/10/19 18:00 97.6 99 27 184/81 (115) 100 10/10/19 17:38 86 189/83 10/10/19 17:33 189/83 10/10/19 17:10 86 31 30 10/10/19 17:00 90 26 189/83 (118) 95 10/10/19 16:00 86 29 183/78 (113) 100 10/10/19 16:00 87 10/10/19 16:00 Mechanical Ventilator Mechanical Ventilator 10/10/19 16:00 87 27 183/79 (113) 100 10/10/19 15:20 87 37 30 10/10/19 15:00 86 32 181/79 (113) 100 10/10/19 14:00 91 28 189/65 (106) 100 10/10/19 13:46 84 30 96 Mechanical Ventilator 30 89 26 30 10/10/19 13:28 199/85 10/10/19 13:28 199/85 10/10/19 13:00 98.4 82 28 199/85 (123) 92 10/10/19 12:23 40 10/10/19 12:00 Mechanical Ventilator Mechanical Ventilator 10/10/19 12:00 40 10/10/19 12:00 82 22 193/88 (123) 95 10/10/19 12:00 80 10/10/19 11:58 77 193/85 10/10/19 11:30 74 26 188/82 (117) 96 10/10/19 11:20 64 28 30 10/10/19 11:00 64 24 185/74 (111) 97 10/10/19 10:00 76 24 179/79 (112) 98 10/10/19 09:29 172/69 10/10/19 09:28 72 172/69 10/10/19 09:20 83 32 40 10/10/19 09:00 70 26 164/74 (104) 99 10/10/19 08:00 Mechanical Ventilator Mechanical Ventilator 10/10/19 08:00 65 10/10/19 08:00 98.1 75 25 167/73 (104) 98 10/10/19 08:00 40 10/10/19 07:30 77 25 173/73 (106) 98 10/10/19 07:22 72 26 99 Mechanical Ventilator 50 76 27 50 10/10/19 07:15 71 20 154/65 (94) 99 10/10/19 07:00 77 24 167/70 (102) 98 10/10/19 06:45 73 27 160/67 (98) 99 10/10/19 06:30 74 31 153/69 (97) 98 10/10/19 06:15 78 28 164/69 (100) 99 10/10/19 06:04 78 184/79 10/10/19 06:00 78 25 174/72 (106) 99 10/10/19 05:45 82 29 184/79 (114) 99 10/10/19 05:30 82 23 182/74 (110) 99 10/10/19 05:15 84 26 178/80 (112) 99 10/10/19 05:00 82 29 177/79 (111) 100 10/10/19 04:45 80 30 181/81 (114) 99 10/10/19 04:35 73 29 50 10/10/19 04:30 74 24 180/86 (117) 100 10/10/19 04:30 182/77 10/10/19 04:00 98.3 77 28 182/77 (112) 98 10/10/19 04:00 Mechanical Ventilator Mechanical Ventilator 10/10/19 04:00 40 10/10/19 03:45 81 28 197/79 (118) 97 10/10/19 03:37 84 10/10/19 03:30 82 26 214/93 (133) 97 10/10/19 03:15 73 28 50 10/10/19 03:15 66 28 180/87 (118) 98 10/10/19 03:00 66 25 163/61 (95) 98 10/10/19 02:45 70 26 170/72 (104) 99 10/10/19 02:30 70 26 173/69 (103) 99 10/10/19 02:15 70 27 175/68 (103) 99 10/10/19 02:00 67 27 174/69 (104) 99 10/10/19 01:45 70 28 177/72 (107) 99 10/10/19 01:30 70 28 175/69 (104) 99 10/10/19 01:15 71 21 177/70 (105) 99 10/10/19 01:13 65 28 100 Mechanical Ventilator 50 78 20 50 10/10/19 01:00 64 22 162/66 (98) 100 10/10/19 00:45 63 22 168/71 (103) 100 10/10/19 00:30 66 24 177/68 (104) 100 10/10/19 00:15 59 25 172/66 (101) 100 10/10/19 00:13 173/68 10/10/19 00:00 58 173/68 10/10/19 00:00 Mechanical Ventilator Mechanical Ventilator 10/10/19 00:00 98.2 59 25 173/68 (103) 99 10/10/19 00:00 63 10/09/19 23:45 62 25 167/72 (103) 100 10/09/19 23:30 64 20 178/70 (106) 100 10/09/19 23:15 57 24 162/63 (96) 100 10/09/19 23:14 66 26 50 10/09/19 23:00 60 26 168/59 (95) 99 10/09/19 22:45 60 27 166/64 (98) 99 10/09/19 22:30 66 23 182/72 (108) 97 10/09/19 22:15 67 26 175/75 (108) 79 10/09/19 22:00 67 22 178/68 (104) 100 10/09/19 21:45 63 24 173/68 (103) 100 10/09/19 21:30 64 25 171/65 (100) 100 10/09/19 21:15 71 28 165/73 (103) 96 10/09/19 21:00 87 29 191/85 (120) 96 10/09/19 20:56 70 181/71 10/09/19 20:45 68 26 181/71 (107) 98 10/09/19 20:40 50 10/09/19 20:39 69 26 40 10/09/19 20:30 67 26 180/67 (104) 92 10/09/19 20:15 87 32 196/76 (116) 96 10/09/19 20:00 97.8 73 26 189/77 (114) 94 10/09/19 20:00 40 10/09/19 20:00 Mechanical Ventilator Mechanical Ventilator Intake and Output 10/09/19 10/10/19 19:00 07:00 Intake Total 670.5 ml 640 ml Output Total 270 ml 290 ml Balance 400.5 ml 350 ml Intake Free Water 200 ml IV Total 50.5 ml Tube Feeding 360 ml 440 ml Other 260 ml Output Urine Total 270 ml 290 ml # Bowel Movements 2 Laboratory Tests 10/10/19 04:29: White Blood Count 8.6, Red Blood Count 3.24L, Hemoglobin 9.8L, Hematocrit 30.3L , Mean Corpuscular Volume 93, Mean Corpuscular Hemoglobin 30.4, Mean Corpuscular Hemoglobin Concent 32.5, Red Cell Distribution Width 13.8, Platelet Count 446, Mean Platelet Volume 5.4L, Neutrophils (%) (Auto) 79.7H, Lymphocytes (%) (Auto) 14.3L, Monocytes (%) (Auto) 4.5, Eosinophils (%) (Auto) 0.8, Basophils (%) (Auto) 0.6, Sodium Level 134L, Potassium Level 3.6, Chloride Level 100, Carbon Dioxide Level 23, Anion Gap 11, Blood Urea Nitrogen 68H, Creatinine 2.8H, Estimat Glomerular Filtration Rate 18.1, Glucose Level 118H, Calcium Level 9.4, Phosphorus Level 4.2, Magnesium Level 3.1H, Total Bilirubin 0.3, Direct Bilirubin 0.2, Aspartate Amino Transf (AST/SGOT) 26, Alanine Aminotransferase (ALT/SGPT) 12, Alkaline Phosphatase 171H, Total Protein 6.8, Albumin 1.9L 10/10/19 07:57: Arterial Blood pH 7.422, Arterial Blood Partial Pressure CO2 32.4L, Arterial Blood Partial Pressure O2 90.1, Arterial Blood HCO3 20.6L, Arterial Blood Oxygen Saturation 96.6, Arterial Blood Base Excess -3.1L, Rojas Test Positive 10/10/19 11:56: POC Whole Blood Glucose [Pending] 10/10/19 16:22: POC Whole Blood Glucose [Pending] Height (Feet): 5 Height (Inches): 5.00 Weight (Pounds): 141 Lucas Dong MD Oct 10, 2019 19:35
[2019-10-10] MEDS: Miralax 17gm pkt ORAL SCH (21:00)
[2019-10-10] MEDS: Dyna-Hex 2% Top Sol 2oz TOPIC SCH (21:06)
[2019-10-10] MEDS: Sertraline 100mg tab GT SCH (21:06)
--- NOTE | 2019-10-10 22:33 | Psych Consult Progress Note ---
Psychiatry Progress Note Psychiatry Progress Note Subjective the pt was calm dec agitation manageable with morphine and haldol off restraints Medications Current Medications Medications (Trade) Dose Ordered Sig/Penny Route PRN Reason Start Time Stop Time Status Last Admin Dose Admin Acetaminophen (Tylenol) 325 mg Q6H PRN GT Temp >100.5 09/23/19 10:45 10/23/19 10:44 09/23/19 18:55 Albuterol/ Ipratropium (Albuterol/ Ipratropium) 3 ml Q6HRT HHN 10/09/19 13:00 10/14/19 12:59 10/10/19 18:47 Ascorbic Acid (Vitamin C) 500 mg DAILY ORAL 10/06/19 09:00 11/05/19 08:59 10/10/19 09:27 Chlorhexidine Gluconate (Ling-Hex 2%) 1 applic DAILY@2000 TOPIC 09/23/19 20:00 12/22/19 19:59 10/10/19 21:06 Clonidine HCl (Catapres TTS-3) 1 patch QWEEK TDERMAL 10/17/19 09:00 01/08/20 08:59 Dextrose (Dextrose 50%) 25 ml Q30M PRN IV Hypoglycemia 10/05/19 18:30 01/03/20 18:29 Dextrose (Dextrose 50%) 50 ml Q30M PRN IV Hypoglycemia 10/05/19 18:30 01/03/20 18:29 Diltiazem HCl (Cardizem Tab) 90 mg Q6HR GT 10/10/19 12:00 11/09/19 11:59 10/10/19 17:38 Docusate Sodium (Colace) 100 mg Q8H GT 09/29/19 08:30 10/29/19 08:29 10/10/19 17:33 Epoetin Gelacio (Epoetin Gelacio(ESRD on dialysis)) 10,000 unit MON-MON-MON SUBQ 09/25/19 21:00 12/24/19 20:59 10/09/19 21:07 Fentanyl Citrate 250 ml @ 0 mls/hr Q24H IV 10/09/19 12:30 10/11/19 12:29 10/09/19 12:30 Haloperidol Lactate (Haldol) 5 mg Q6H PRN IM Agitation 10/08/19 11:00 11/22/19 10:59 10/10/19 21:07 Heparin Sodium (Porcine) (Heparin 5000 units/ml) 5,000 units EVERY 12 HOURS SUBQ 09/17/19 21:00 10/30/19 08:59 10/10/19 21:07 Hydralazine HCl (Apresoline) 10 mg Q4H PRN IV BP over 160 systolic 09/17/19 11:15 12/14/19 11:14 10/10/19 18:18 Insulin Aspart (NovoLOG) Q6HR SUBQ 10/06/19 00:00 01/03/20 20:59 Lactulose (Cephulac) 10 gm THREE TIMES A DAY ORAL 10/03/19 13:00 11/02/19 12:59 10/10/19 17:33 Lansoprazole (Prevacid) 30 mg Q12HR GT 09/27/19 21:00 10/27/19 20:59 10/10/19 21:06 Lisinopril (PriniviL) 20 mg BID GT 10/09/19 18:00 11/08/19 17:59 10/10/19 17:33 Metoclopramide HCl (Reglan) 5 mg EVERY 6 HOURS GT 10/09/19 12:00 11/08/19 11:59 10/10/19 17:33 Metoprolol Tartrate (Lopressor) 25 mg Q12HR GT 10/09/19 21:00 01/07/20 20:59 10/10/19 21:07 Midazolam HCl (Versed 2mg/2ml vial) 1 mg Q4H PRN IVP For Anxiety 09/21/19 09:30 10/14/19 09:29 10/10/19 02:50 Minoxidil (Loniten) 2.5 mg Q8HR ORAL 10/10/19 14:00 01/08/20 13:59 10/10/19 21:06 Morphine Sulfate (Morphine Sulfate) 2 mg Q4H PRN IVP For Pain 10/09/19 11:00 10/16/19 10:59 10/10/19 14:54 Polyethylene Glycol (Miralax) 17 gm BEDTIME ORAL 10/01/19 21:00 10/31/19 20:59 10/09/19 20:55 Risperidone (RisperDAL) 2 mg BEDTIME ORAL 10/05/19 21:00 11/19/19 20:59 10/10/19 21:06 Sertraline HCl (Zoloft) 100 mg BEDTIME GT 09/17/19 21:00 10/15/19 20:59 10/10/19 21:06 Sorbitol (sorbitoL) 30 ml EVERY 6 HOURS PRN GT Constipation 09/29/19 18:00 10/29/19 17:59 10/01/19 00:44 Vitamin B Complex/ Vit C/Folic Acid (Nephrovite) 1 tab DAILY ORAL 10/06/19 09:00 11/05/19 08:59 10/10/19 09:28 Zinc Sulfate (Zinc Sulfate) 220 mg DAILY ORAL 10/06/19 09:00 10/16/19 08:59 10/10/19 09:27 Neurological/Psychiatric: Reports: depressed, emotional problems Allergies: Coded Allergies: No Known Allergies (Unverified , 10/10/17) Objective Data Height (Feet): 5 Height (Inches): 5.00 Weight (Pounds): 141 General Appearance: lethargic Additional Comments: awake, disoriented. Mood is agitated. Affect is flat. Thought process is concrete. Thought content, no suicidal or homicidal ideation. Cognition is impaired. Insight and judgment are impaired. Assessment/Plan [place] I: ASSESSMENT: AXIS I: Acute encephalopathy. Schizophrenia. AXIS II: Deferred. AXIS III: As above. AXIS IV: Low. AXIS V: 20. PLAN: 1. We will start the patient on risperidone 2 mg at bedtime. 2. Haldol IM. The patient improved after 1 dose and restraints was stopped at nighttime. 3. Continue to follow and readjust the medications. Status: stable Status Narrative ASSESSMENT: AXIS I: Acute encephalopathy. Schizophrenia. AXIS II: Deferred. AXIS III: As above. AXIS IV: Low. AXIS V: 20. PLAN: 1. We will start the patient on risperidone 2 mg at bedtime. 2. Haldol IM. The patient improved after 1 dose and restraints was stopped at nighttime. 3. Continue to follow and readjust the medications. Assessment/Plan: ASSESSMENT: AXIS I: Acute encephalopathy. Schizophrenia. AXIS II: Deferred. AXIS III: As above. AXIS IV: Low. AXIS V: 20. PLAN: 1. We will start the patient on risperidone 2 mg at bedtime. 2. Haldol IM. The patient improved after 1 dose and restraints was stopped at nighttime. 3. Continue to follow and readjust the medications. Shanda Linares MD Oct 10, 2019 22:32
[2019-10-11] VITALS (21 sets, daily range): BP systolic 138–192; BP diastolic 64–144
[2019-10-11] MEDS: Docusate 100mg/10ml Liq GT SCH ×3 (00:30→17:39)
[2019-10-11] MEDS: Albuterol/Ipratropium 3ml neb HHN SCH ×4 (01:06→19:11)
[2019-10-11] MEDS: Minoxidil 2.5mg tab ORAL SCH ×3 (05:04→22:00)
[2019-10-11] MEDS: Morphine Sulfate 2mg/ml Inj(IV/IM USE ONLY) IVP PRN ×2 (05:04→10:25)
[2019-10-11] MEDS: dilTIAZem HCl 90mg tab GT SCH ×4 (05:05→23:31)
[2019-10-11] MEDS: Metoclopramide 10mg/10ml Liq GT SCH ×4 (05:05→23:30)
[2019-10-11] MEDS ORDERED: Midazolam 2mg/2ml Inj IVP PRN (05:30)
[2019-10-11] MEDS: NovoLOG Insulin Flexpen SUBQ SCH ×5 (05:35→23:30)
[2019-10-11] MEDS ORDERED: Sorbitol Solution UD 30ml GT PRN (06:00)
[2019-10-11] MEDS: Zinc Sulfate 220mg ORAL SCH (08:16)
[2019-10-11] MEDS: Nephrovite tab (Rena-Vite) ORAL SCH (08:16)
[2019-10-11] MEDS: Ascorbic Acid 500mg tab ORAL SCH (08:16)
[2019-10-11] MEDS: Lisinopril 20mg tab GT SCH ×2 (08:16→17:40)
[2019-10-11] MEDS: Heparin 5000 units/ml inj SUBQ SCH ×2 (08:17→21:02)
--- NOTE | 2019-10-11 08:41 | General Progress Note ---
Assessment/Plan Problem List: (1) S/P aortic dissection repair ICD Codes: Z98.890 - Other specified postprocedural states SNOMED: 977801217, 003415255 (2) Sacral decubitus ulcer, stage IV ICD Codes: L89.154 - Pressure ulcer of sacral region, stage 4 SNOMED: 952429634, 884832307 (3) Anemia ICD Codes: D64.9 - Anemia, unspecified SNOMED: 606567019 (4) GT CLOGGED (5) Feeding by G-tube ICD Codes: Z93.1 - Gastrostomy status SNOMED: 532036478, 632836116 (6) Tracheostomy in place ICD Codes: Z93.0 - Tracheostomy status SNOMED: 709090374 (7) Pacemaker ICD Codes: Z95.0 - Presence of cardiac pacemaker SNOMED: 852597990 (8) Chronic respiratory failure ICD Codes: J96.10 - Chronic respiratory failure, unspecified whether with hypoxia or hypercapnia SNOMED: 78797939 Status: stable Assessment/Plan: GTF D/W the nurse at the bedside monitor for residuals repeat labs ICU care dc lactulose Subjective ROS Limited/Unobtainable: No Allergies: Coded Allergies: No Known Allergies (Unverified , 10/10/17) Objective Last 24 Hour Vital Signs Date Time Temp Pulse Resp B/P (MAP) Pulse Ox O2 Delivery O2 Flow Rate FiO2 10/11/19 08:16 66 138/64 10/11/19 08:16 138/64 10/11/19 08:00 98.1 66 25 138/64 (88) 99 10/11/19 07:28 81 20 98 Mechanical Ventilator 40 79 26 40 10/11/19 05:12 76 22 40 10/11/19 05:05 76 175/80 10/11/19 05:04 175/80 10/11/19 04:00 30 10/11/19 04:00 Mechanical Ventilator Mechanical Ventilator 10/11/19 03:45 76 29 169/78 (108) 98 10/11/19 03:30 78 32 183/81 (115) 98 10/11/19 03:15 76 30 169/74 (105) 98 10/11/19 03:15 75 10/11/19 03:15 77 30 40 10/11/19 03:00 81 25 182/82 (115) 97 10/11/19 02:45 82 28 182/97 (125) 98 10/11/19 02:30 80 29 176/79 (111) 98 10/11/19 02:26 82 31 176/87 (116) 97 10/11/19 02:06 85 30 182/85 (117) 97 10/11/19 02:00 89 27 192/85 (120) 96 10/11/19 01:45 81 28 184/76 (112) 97 10/11/19 01:30 78 31 179/78 (111) 97 10/11/19 01:19 81 31 96 Mechanical Ventilator 40 83 32 30 10/11/19 01:15 71 30 172/82 (112) 98 10/11/19 01:14 70 29 165/72 (103) 98 10/11/19 01:00 82 33 192/144 (160) 97 10/11/19 00:30 70 30 163/70 (101) 97 10/11/19 00:28 70 29 163/69 (100) 97 10/11/19 00:00 98.6 72 26 168/74 (105) 98 10/11/19 00:00 Mechanical Ventilator Mechanical Ventilator 10/10/19 23:55 75 170/80 10/10/19 23:30 78 31 176/78 (110) 97 10/10/19 23:15 78 30 185/79 (114) 97 10/10/19 23:14 78 10/10/19 23:12 77 30 40 10/10/19 23:00 74 30 171/75 (107) 97 10/10/19 22:45 73 28 168/74 (105) 98 10/10/19 22:30 76 29 175/76 (109) 97 10/10/19 22:15 70 24 163/71 (101) 97 10/10/19 22:00 78 28 174/74 (107) 97 10/10/19 21:45 78 25 168/71 (103) 98 10/10/19 21:30 82 32 171/71 (104) 98 10/10/19 21:15 84 29 175/78 (110) 98 10/10/19 21:07 90 172/78 10/10/19 21:06 172/78 10/10/19 21:00 80 27 172/78 (109) 98 10/10/19 20:45 86 28 179/76 (110) 97 10/10/19 20:45 40 10/10/19 20:41 93 30 30 10/10/19 20:30 95 25 182/80 (114) 94 10/10/19 20:15 80 26 167/71 (103) 94 10/10/19 20:00 98.0 82 27 167/73 (104) 94 10/10/19 20:00 Mechanical Ventilator Mechanical Ventilator 10/10/19 20:00 40 10/10/19 19:45 91 26 180/80 (113) 95 10/10/19 19:30 92 28 180/78 (112) 95 10/10/19 19:21 94 10/10/19 19:15 94 32 96 Mechanical Ventilator 30 89 26 30 10/10/19 19:15 82 27 176/74 (108) 94 10/10/19 19:00 89 22 158/76 (103) 98 10/10/19 18:18 184/81 10/10/19 18:00 97.6 99 27 184/81 (115) 100 10/10/19 17:38 86 189/83 10/10/19 17:33 189/83 10/10/19 17:10 86 31 30 10/10/19 17:00 90 26 189/83 (118) 95 10/10/19 16:00 86 29 183/78 (113) 100 10/10/19 16:00 87 10/10/19 16:00 Mechanical Ventilator Mechanical Ventilator 10/10/19 16:00 87 27 183/79 (113) 100 10/10/19 15:20 87 37 30 10/10/19 15:00 86 32 181/79 (113) 100 10/10/19 14:00 91 28 189/65 (106) 100 10/10/19 13:46 84 30 96 Mechanical Ventilator 30 89 26 30 10/10/19 13:28 199/85 10/10/19 13:28 199/85 10/10/19 13:00 98.4 82 28 199/85 (123) 92 10/10/19 12:23 40 10/10/19 12:00 Mechanical Ventilator Mechanical Ventilator 10/10/19 12:00 40 10/10/19 12:00 82 22 193/88 (123) 95 8/27/20 12:00 80 10/10/19 11:58 77 193/85 10/10/19 11:30 74 26 188/82 (117) 96 10/10/19 11:20 64 28 30 10/10/19 11:00 64 24 185/74 (111) 97 10/10/19 10:00 76 24 179/79 (112) 98 10/10/19 09:29 172/69 10/10/19 09:28 72 172/69 10/10/19 09:20 83 32 40 10/10/19 09:00 70 26 164/74 (104) 99 Intake and Output 10/10/19 10/11/19 19:00 07:00 Intake Total 1100 ml 540 ml Output Total 335 ml 260 ml Balance 765 ml 280 ml Intake Free Water 200 ml 100 ml Tube Feeding 480 ml 440 ml Other 420 ml Output Urine Total 335 ml 260 ml # Bowel Movements 2 2 Laboratory Tests 10/10/19 11:56: POC Whole Blood Glucose [Pending] 10/10/19 16:22: POC Whole Blood Glucose [Pending] 10/11/19 05:11: POC Whole Blood Glucose [Pending] Height (Feet): 5 Height (Inches): 5.00 Weight (Pounds): 146 General Appearance: lethargic EENT: normal ENT inspection Neck: supple Cardiovascular: normal rate Respiratory/Chest: decreased breath sounds Abdomen: normal bowel sounds, non tender, soft Extremities: non-tender Inder Mccauley MD Oct 11, 2019 08:41
[2019-10-11] MEDS ORDERED: Lactulose 10gm/15ml UDC ORAL SCH (09:00)
--- NOTE | 2019-10-11 10:19 | Hematology/Onc Progress Note ---
Assessment/Plan Assessment/Plan Assessment and Recs # Leukocytosis, now with gram positive bacteremias well as pna noted --> historically --> PPM site (pocket) infection (redness and pain, bacteremia) and likely pocket abscess - no vegetation seen on ABBIE --> is s'p pm removal and also pocket infection is better --> per cards recs in re to tach/davis --> wbc 15-->19-->17-->15-->13->12-->13-->12>13-->18-->9-->7 --> ABX cefepime/levaquin--> vanc/angelo --> ID recs are noted # Anemia of chronic disease due to underlying chronic medical issues, multifactorial --> Anemia workup has been reviewed, cw acd --> No evidence of hemolysis is noted, peripheral smear has been reviewed. --> Hgb goal >7. Transfuse prn. --> Epogen started --> Medications have been reviewed --> low threshold for gi evaluation in case has occult + --> hgb 7.1-->7.8-->8.9->9.2-->8.5-->9.7-->10-->8.8-->9.6-->8.7->8.6-->7.2->8.7- >9.1-->9.2-->9-->8.7-->9.3-->9.8 --> 1 unit prbc 09/27 # Thrombocytois is likely reactive process, is s/p infection --> plt trend 610k-->706k-->354 --> p smear reviewed # Acute hypoxic respiratory failure s/p intubation 11/23- ?ARDS --> on vent/trach # Gram positive bacteremia- real bacteremia- 2ry to above and probable PNA --> per id care # JAVIER initially >2 --> now improved with D5w # Dysphagia s/p peg # Thoracic aortic dissection s/p repair early 2017 # Psychiatric history on ativan/haldol # [place] resident # Dvt ppx heparin sq The timing of this note does not necessarily reflect the time of the patient was seen. Greatly appreciate consultation. Subjective Constitutional: Denies: no symptoms, chills, fever, malaise, weakness, other HEENT: Denies: no symptoms, eye pain, blurred vision, tearing, double vision, ear pain, ear discharge, nose pain, nose congestion, throat pain, throat swelling, mouth pain, mouth swelling, other Cardiovascular: Denies: no symptoms, chest pain, edema, irregular heart rate, lightheadedness, palpitations, syncope, other Respiratory: Denies: no symptoms, cough, shortness of breath, SOB with excertion, SOB at rest, sputum, wheezing, other Gastrointestinal/Abdominal: Denies: no symptoms, abdomen distended, abdominal pain, black stools, tarry stools, blood in stool, constipated, diarrhea, difficulty swallowing, nausea, poor appetite, poor fluid intake, rectal bleeding , vomiting, other Genitourinary: Denies: no symptoms, burning, discharge, frequency, flank pain, hematuria, incontinence, pain, urgency, other Neurologic/Psychiatric: Denies: no symptoms, anxiety, depressed, emotional problems, headache, numbness, paresthesia, pre-existing deficit, seizure, tingling, tremors, weakness, other Endocrine: Denies: no symptoms, excessive sweating, flushing, intolerance to cold, intolerance to heat, increased hunger, increased thirst, increased urine, unexplained weight gain, unexplained weight loss, other Allergies: Coded Allergies: No Known Allergies (Unverified , 10/10/17) Subjective 09/16 on vent now, consulted in am pulm, on vent setting, labs noted, hep sq 09/17 meds noted, cbc noted, labs noted, no bleeding 09/18 is to undergo potential v/q scan given abg, labs noted, resless, on ativan, to get haldol today, roman ramesh 09/19 remains agitated, covering, with sacral wound seeping, likely cause of anemia, roman rn 09/26 restless, remains agitated, gtube ripped, eval with rn, and ifeoma consulted 09/27 remains on vent, agitated, seen by gi, hgb low, roman George to transfuse 1 unit prbc 09/28 meds noted, no bleeding, on vent, s/p blood tranfusion, cbc pending, roman ramesh 09/29 remains in the icu, roman rn in the am, agitated, on versed, fentanyl, restraints 09/30 in icu, trach to vent, on gtube feeds, fentanyl, agitated 10/01 in icu, roman Ayoub rn, no bleeding, sleeping, labs noted, hgb >9 10/02 sedated in icu, is on vent, roman rn, more alert and more conversive with face grimaces 10/03 labs have been reviewed, no bleeding, icu, meds reviewed, on fentanyl and versed, to consult psych 10/05 remains on fentanyl, also with restraints, no bleeding, cbc ordered 10/06 remains obtunded, though reactive when proded, labs pending from am 10/07 hypertensive, asleep, no bleeding, roman rn, no major night sweats\ 10/08 formula leaking from gtube site, no bleeding, with some minor residual 10/09 remains on gtube feeds, on lactulose, no major changes, confused but nods 10/10 labs reviewed, lactulose discontinued as having diarrhea, no bleeding Objective Objective Current Medications Medications (Trade) Dose Ordered Sig/Penny Route PRN Reason Start Time Stop Time Status Last Admin Dose Admin Acetaminophen (Tylenol) 325 mg Q6H PRN GT Temp >100.5 10/11/19 04:45 10/23/19 10:44 Albuterol/ Ipratropium (Albuterol/ Ipratropium) 3 ml Q6HRT HHN 10/11/19 07:00 10/14/19 12:59 10/11/19 07:18 Ascorbic Acid (Vitamin C) 500 mg DAILY ORAL 10/11/19 09:00 11/05/19 08:59 10/11/19 08:16 Chlorhexidine Gluconate (Ling-Hex 2%) 1 applic DAILY@2000 TOPIC 10/11/19 20:00 12/22/19 19:59 Clonidine HCl (Catapres TTS-3) 1 patch QWEEK TDERMAL 10/17/19 09:00 01/08/20 08:59 Dextrose (Dextrose 50%) 25 ml Q30M PRN IV Hypoglycemia 10/11/19 04:30 01/03/20 18:29 Dextrose (Dextrose 50%) 50 ml Q30M PRN IV Hypoglycemia 10/11/19 04:30 01/03/20 18:29 Diltiazem HCl (Cardizem Tab) 90 mg Q6HR GT 10/11/19 06:00 11/09/19 11:59 10/11/19 05:05 Docusate Sodium (Colace) 100 mg Q8H GT 10/11/19 08:30 10/29/19 08:29 Epoetin Gelacio (Epoetin Gelacio(ESRD on dialysis)) 10,000 unit SUBQ 10/11/19 21:00 12/24/19 20:59 Haloperidol Lactate (Haldol) 5 mg Q6H PRN IM Agitation 10/11/19 05:00 11/22/19 10:59 Heparin Sodium (Porcine) (Heparin 5000 units/ml) 5,000 units EVERY 12 HOURS SUBQ 10/11/19 09:00 10/30/19 08:59 10/11/19 08:17 Insulin Aspart (NovoLOG) Q6HR SUBQ 10/11/19 06:00 01/03/20 20:59 Lansoprazole (Prevacid) 30 mg Q12HR GT 10/11/19 09:00 10/27/19 20:59 10/11/19 08:15 Lisinopril (PriniviL) 20 mg BID GT 10/11/19 09:00 11/08/19 17:59 10/11/19 08:16 Metoclopramide HCl (Reglan) 5 mg EVERY 6 HOURS GT 10/11/19 06:00 11/08/19 11:59 Metoprolol Tartrate (Lopressor) 25 mg Q12HR GT 10/11/19 09:00 01/07/20 20:59 10/11/19 08:16 Minoxidil (Loniten) 2.5 mg Q8HR ORAL 10/11/19 06:00 01/08/20 13:59 10/11/19 05:04 Morphine Sulfate (Morphine Sulfate) 2 mg Q4H PRN IVP For Pain 10/11/19 04:42 10/16/19 04:41 10/11/19 05:04 Polyethylene Glycol (Miralax) 17 gm BEDTIME ORAL 10/11/19 21:00 10/31/19 20:59 Risperidone (RisperDAL) 2 mg BEDTIME ORAL 10/11/19 21:00 11/19/19 20:59 Sertraline HCl (Zoloft) 100 mg BEDTIME GT 10/11/19 21:00 10/15/19 20:59 Sorbitol (sorbitoL) 30 ml EVERY 6 HOURS PRN GT Constipation 10/11/19 06:00 10/29/19 17:59 Vitamin B Complex/ Vit C/Folic Acid (Nephrovite) 1 tab DAILY ORAL 10/11/19 09:00 11/05/19 08:59 10/11/19 08:16 Zinc Sulfate (Zinc Sulfate) 220 mg DAILY ORAL 10/11/19 09:00 10/21/19 08:59 10/11/19 08:16 Last 24 Hour Vital Signs Date Time Temp Pulse Resp B/P (MAP) Pulse Ox O2 Delivery O2 Flow Rate FiO2 10/11/19 09:00 71 29 40 10/11/19 08:16 66 138/64 10/11/19 08:16 138/64 10/11/19 08:00 Mechanical Ventilator Mechanical Ventilator 10/11/19 08:00 30 10/11/19 08:00 98.1 66 25 138/64 (88) 99 10/11/19 08:00 74 10/11/19 07:28 81 20 98 Mechanical Ventilator 40 79 26 40 10/11/19 05:12 76 22 40 10/11/19 05:05 76 175/80 10/11/19 05:04 175/80 10/11/19 04:00 30 10/11/19 04:00 Mechanical Ventilator Mechanical Ventilator 10/11/19 03:45 76 29 169/78 (108) 98 10/11/19 03:30 78 32 183/81 (115) 98 10/11/19 03:15 76 30 169/74 (105) 98 10/11/19 03:15 75 10/11/19 03:15 77 30 40 10/11/19 03:00 81 25 182/82 (115) 97 10/11/19 02:45 82 28 182/97 (125) 98 10/11/19 02:30 80 29 176/79 (111) 98 10/11/19 02:26 82 31 176/87 (116) 97 10/11/19 02:06 85 30 182/85 (117) 97 10/11/19 02:00 89 27 192/85 (120) 96 10/11/19 01:45 81 28 184/76 (112) 97 10/11/19 01:30 78 31 179/78 (111) 97 10/11/19 01:19 81 31 96 Mechanical Ventilator 40 83 32 30 10/11/19 01:15 71 30 172/82 (112) 98 10/11/19 01:14 70 29 165/72 (103) 98 10/11/19 01:00 82 33 192/144 (160) 97 10/11/19 00:30 70 30 163/70 (101) 97 10/11/19 00:28 70 29 163/69 (100) 97 10/11/19 00:00 98.6 72 26 168/74 (105) 98 10/11/19 00:00 Mechanical Ventilator Mechanical Ventilator 10/10/19 23:55 75 170/80 10/10/19 23:30 78 31 176/78 (110) 97 10/10/19 23:15 78 30 185/79 (114) 97 10/10/19 23:14 78 10/10/19 23:12 77 30 40 10/10/19 23:00 74 30 171/75 (107) 97 10/10/19 22:45 73 28 168/74 (105) 98 10/10/19 22:30 76 29 175/76 (109) 97 10/10/19 22:15 70 24 163/71 (101) 97 10/10/19 22:00 78 28 174/74 (107) 97 10/10/19 21:45 78 25 168/71 (103) 98 10/10/19 21:30 82 32 171/71 (104) 98 10/10/19 21:15 84 29 175/78 (110) 98 10/10/19 21:07 90 172/78 10/10/19 21:06 172/78 10/10/19 21:00 80 27 172/78 (109) 98 10/10/19 20:45 86 28 179/76 (110) 97 10/10/19 20:45 40 10/10/19 20:41 93 30 30 10/10/19 20:30 95 25 182/80 (114) 94 10/10/19 20:15 80 26 167/71 (103) 94 10/10/19 20:00 98.0 82 27 167/73 (104) 94 10/10/19 20:00 Mechanical Ventilator Mechanical Ventilator 10/10/19 20:00 40 10/10/19 19:45 91 26 180/80 (113) 95 10/10/19 19:30 92 28 180/78 (112) 95 10/10/19 19:21 94 10/10/19 19:15 94 32 96 Mechanical Ventilator 30 89 26 30 10/10/19 19:15 82 27 176/74 (108) 94 10/10/19 19:00 89 22 158/76 (103) 98 10/10/19 18:18 184/81 10/10/19 18:00 97.6 99 27 184/81 (115) 100 10/10/19 17:38 86 189/83 10/10/19 17:33 189/83 10/10/19 17:10 86 31 30 10/10/19 17:00 90 26 189/83 (118) 95 10/10/19 16:00 86 29 183/78 (113) 100 10/10/19 16:00 87 10/10/19 16:00 Mechanical Ventilator Mechanical Ventilator 10/10/19 16:00 87 27 183/79 (113) 100 10/10/19 15:20 87 37 30 10/10/19 15:00 86 32 181/79 (113) 100 10/10/19 14:00 91 28 189/65 (106) 100 10/10/19 13:46 84 30 96 Mechanical Ventilator 30 89 26 30 10/10/19 13:28 199/85 10/10/19 13:28 199/85 10/10/19 13:00 98.4 82 28 199/85 (123) 92 10/10/19 12:23 40 10/10/19 12:00 Mechanical Ventilator Mechanical Ventilator 10/10/19 12:00 40 10/10/19 12:00 82 22 193/88 (123) 95 10/10/19 12:00 80 10/10/19 11:58 77 193/85 10/10/19 11:30 74 26 188/82 (117) 96 10/10/19 11:20 64 28 30 10/10/19 11:00 64 24 185/74 (111) 97 10/10/19 10:00 76 24 179/79 (112) 98 10/10/19 09:29 172/69 10/10/19 09:28 72 172/69 10/10/19 09:20 83 32 40 10/10/19 09:00 70 26 164/74 (104) 99 10/10/19 08:00 Mechanical Ventilator Mechanical Ventilator 10/10/19 08:00 65 10/10/19 08:00 98.1 75 25 167/73 (104) 98 10/10/19 08:00 40 10/10/19 07:30 77 25 173/73 (106) 98 10/10/19 07:22 72 26 99 Mechanical Ventilator 50 76 27 50 10/10/19 07:15 71 20 154/65 (94) 99 10/10/19 07:00 77 24 167/70 (102) 98 10/10/19 06:45 73 27 160/67 (98) 99 10/10/19 06:30 74 31 153/69 (97) 98 10/10/19 06:15 78 28 164/69 (100) 99 10/10/19 06:04 78 184/79 10/10/19 06:00 78 25 174/72 (106) 99 10/10/19 05:45 82 29 184/79 (114) 99 10/10/19 05:30 82 23 182/74 (110) 99 10/10/19 05:15 84 26 178/80 (112) 99 10/10/19 05:00 82 29 177/79 (111) 100 10/10/19 04:45 80 30 181/81 (114) 99 10/10/19 04:35 73 29 50 10/10/19 04:30 74 24 180/86 (117) 100 10/10/19 04:30 182/77 10/10/19 04:00 98.3 77 28 182/77 (112) 98 10/10/19 04:00 Mechanical Ventilator Mechanical Ventilator 10/10/19 04:00 40 10/10/19 03:45 81 28 197/79 (118) 97 10/10/19 03:37 84 10/10/19 03:30 82 26 214/93 (133) 97 10/10/19 03:15 73 28 50 10/10/19 03:15 66 28 180/87 (118) 98 10/10/19 03:00 66 25 163/61 (95) 98 10/10/19 02:45 70 26 170/72 (104) 99 10/10/19 02:30 70 26 173/69 (103) 99 10/10/19 02:15 70 27 175/68 (103) 99 10/10/19 02:00 67 27 174/69 (104) 99 10/10/19 01:45 70 28 177/72 (107) 99 10/10/19 01:30 70 28 175/69 (104) 99 10/10/19 01:15 71 21 177/70 (105) 99 10/10/19 01:13 65 28 100 Mechanical Ventilator 50 78 20 50 10/10/19 01:00 64 22 162/66 (98) 100 10/10/19 00:45 63 22 168/71 (103) 100 10/10/19 00:30 66 24 177/68 (104) 100 10/10/19 00:15 59 25 172/66 (101) 100 10/10/19 00:13 173/68 10/10/19 00:00 58 173/68 10/10/19 00:00 Mechanical Ventilator Mechanical Ventilator 10/10/19 00:00 98.2 59 25 173/68 (103) 99 10/10/19 00:00 63 10/09/19 23:45 62 25 167/72 (103) 100 10/09/19 23:30 64 20 178/70 (106) 100 10/09/19 23:15 57 24 162/63 (96) 100 10/09/19 23:14 66 26 50 10/09/19 23:00 60 26 168/59 (95) 99 10/09/19 22:45 60 27 166/64 (98) 99 10/09/19 22:30 66 23 182/72 (108) 97 10/09/19 22:15 67 26 175/75 (108) 79 10/09/19 22:00 67 22 178/68 (104) 100 10/09/19 21:45 63 24 173/68 (103) 100 10/09/19 21:30 64 25 171/65 (100) 100 10/09/19 21:15 71 28 165/73 (103) 96 10/09/19 21:00 87 29 191/85 (120) 96 10/09/19 20:56 70 181/71 10/09/19 20:45 68 26 181/71 (107) 98 10/09/19 20:40 50 10/09/19 20:39 69 26 40 10/09/19 20:30 67 26 180/67 (104) 92 10/09/19 20:15 87 32 196/76 (116) 96 10/09/19 20:00 97.8 73 26 189/77 (114) 94 10/09/19 20:00 40 10/09/19 20:00 Mechanical Ventilator Mechanical Ventilator 10/09/19 19:30 69 22 166/72 (103) 94 10/09/19 19:20 68 10/09/19 19:15 67 25 168/70 (102) 94 10/09/19 19:05 64 24 100 Mechanical Ventilator 40 78 20 40 10/09/19 19:00 65 27 172/68 (102) 82 10/09/19 18:45 68 27 164/68 (100) 85 10/09/19 18:30 71 22 169/67 (101) 94 10/09/19 18:00 26 177/71 Mechanical Ventilator 40 10/09/19 18:00 73 27 177/71 (106) 93 10/09/19 17:52 145/59 10/09/19 17:30 76 25 158/66 (96) 93 10/09/19 17:21 97.9 10/09/19 17:20 97.9 10/09/19 17:00 23 145/59 Mechanical Ventilator 40 10/09/19 17:00 68 23 145/59 (87) 94 10/09/19 16:58 70 24 40 10/09/19 16:51 70 170/64 10/09/19 16:30 68 21 193/81 (118) 94 10/09/19 16:00 70 10/09/19 16:00 40 10/09/19 16:00 Mechanical Ventilator Mechanical Ventilator 10/09/19 16:00 24 170/64 Mechanical Ventilator 40 10/09/19 16:00 98.0 72 27 177/71 (106) 96 10/09/19 15:45 72 27 172/81 (111) 95 10/09/19 15:30 75 28 189/84 (119) 96 10/09/19 15:15 80 34 182/72 (108) 97 10/09/19 15:12 79 26 40 10/09/19 15:00 27 182/72 Mechanical Ventilator 40 10/09/19 15:00 80 29 189/80 (116) 95 10/09/19 14:45 78 25 191/81 (117) 97 10/09/19 14:30 72 26 180/74 (109) 95 10/09/19 14:00 72 22 191/79 (116) 96 10/09/19 14:00 28 183/70 Mechanical Ventilator 40 10/09/19 13:30 70 27 180/74 (109) 97 10/09/19 13:00 28 180/80 Mechanical Ventilator 40 10/09/19 13:00 81 28 180/80 (113) 95 10/09/19 12:50 71 21 100 Mechanical Ventilator 40 77 23 40 10/09/19 12:30 21 180/77 Mechanical Ventilator 50.0 40 10/09/19 12:30 23 180/77 Mechanical Ventilator 45 10/09/19 12:30 76 26 180/77 (111) 96 10/09/19 12:00 45 10/09/19 12:00 98.0 75 24 183/80 (114) 96 10/09/19 12:00 74 10/09/19 12:00 Mechanical Ventilator Mechanical Ventilator 10/09/19 12:00 23 180/77 Mechanical Ventilator 45 10/09/19 11:52 73 193/89 10/09/19 11:30 76 26 192/82 (118) 97 10/09/19 11:00 24 193/89 Mechanical Ventilator 45 10/09/19 11:00 72 27 193/75 (114) 98 10/09/19 10:58 73 20 40 10/09/19 10:30 73 22 186/87 (120) 84 Intake and Output 10/10/19 10/11/19 19:00 07:00 Intake Total 1100 ml 540 ml Output Total 335 ml 260 ml Balance 765 ml 280 ml Intake Free Water 200 ml 100 ml Tube Feeding 480 ml 440 ml Other 420 ml Output Urine Total 335 ml 260 ml # Bowel Movements 2 2 Labs Test 10/08/19 16:40 10/09/19 04:00 10/09/19 05:19 10/10/19 04:29 Urine Color Yellow Urine Appearance Very cloudy Urine pH 6.0 (4.5-8.0) Urine Specific Daphne 1.015 (1.005-1.035) Urine Protein 4+ (NEGATIVE) Urine Glucose (UA) Negative (NEGATIVE) Urine Ketones Negative (NEGATIVE) Urine Blood 4+ (NEGATIVE) Urine Nitrite Negative (NEGATIVE) Urine Bilirubin Negative (NEGATIVE) Urine Urobilinogen Normal MG/DL (0.0-1.0) Urine Leukocyte Esterase 4+ (NEGATIVE) Urine RBC 60-80 /HPF (0 - 2) Urine WBC Tntc /HPF (0 - 2) Urine Squamous Epithelial Cells Moderate /LPF (NONE/OCC) Urine Bacteria Many /HPF (NONE) Urine Yeast Few /HPF (NONE) White Blood Count 6.7 K/UL (4.8-10.8) 8.6 K/UL (4.8-10.8) Red Blood Count 3.36 M/UL (4.20-5.40) 3.24 M/UL (4.20-5.40) Hemoglobin 10.3 G/DL (12.0-16.0) 9.8 G/DL (12.0-16.0) Hematocrit 32.0 % (37.0-47.0) 30.3 % (37.0-47.0) Mean Corpuscular Volume 95 FL (80-99) 93 FL (80-99) Mean Corpuscular Hemoglobin 30.5 PG (27.0-31.0) 30.4 PG (27.0-31.0) Mean Corpuscular Hemoglobin Concent 32.1 G/DL (32.0-36.0) 32.5 G/DL (32.0-36.0) Red Cell Distribution Width 14.1 % (11.6-14.8) 13.8 % (11.6-14.8) Platelet Count 432 K/UL (150-450) 446 K/UL (150-450) Mean Platelet Volume 5.8 FL (6.5-10.1) 5.4 FL (6.5-10.1) Neutrophils (%) (Auto) 75.5 % (45.0-75.0) 79.7 % (45.0-75.0) Lymphocytes (%) (Auto) 17.2 % (20.0-45.0) 14.3 % (20.0-45.0) Monocytes (%) (Auto) 5.7 % (1.0-10.0) 4.5 % (1.0-10.0) Eosinophils (%) (Auto) 0.4 % (0.0-3.0) 0.8 % (0.0-3.0) Basophils (%) (Auto) 1.3 % (0.0-2.0) 0.6 % (0.0-2.0) Sodium Level 134 MMOL/L (136-145) 134 MMOL/L (136-145) Potassium Level 4.2 MMOL/L (3.5-5.1) 3.6 MMOL/L (3.5-5.1) Chloride Level 99 MMOL/L (98-107) 100 MMOL/L (98-107) Carbon Dioxide Level 23 MMOL/L (21-32) 23 MMOL/L (21-32) Anion Gap 12 mmol/L (5-15) 11 mmol/L (5-15) Blood Urea Nitrogen 68 mg/dL (7-18) 68 mg/dL (7-18) Creatinine 2.9 MG/DL (0.55-1.30) 2.8 MG/DL (0.55-1.30) Estimat Glomerular Filtration Rate 17.4 mL/min (>60) 18.1 mL/min (>60) Glucose Level 92 MG/DL (74-106) 118 MG/DL (74-106) Calcium Level 9.0 MG/DL (8.5-10.1) 9.4 MG/DL (8.5-10.1) Total Bilirubin 0.4 MG/DL (0.2-1.0) 0.3 MG/DL (0.2-1.0) Aspartate Amino Transf (AST/SGOT) 25 U/L (15-37) 26 U/L (15-37) Alanine Aminotransferase (ALT/SGPT) 8 U/L (12-78) 12 U/L (12-78) Alkaline Phosphatase 167 U/L (46-116) 171 U/L (46-116) Total Protein 7.3 G/DL (6.4-8.2) 6.8 G/DL (6.4-8.2) Albumin 1.6 G/DL (3.4-5.0) 1.9 G/DL (3.4-5.0) Globulin 5.7 g/dL Albumin/Globulin Ratio 0.3 (1.0-2.7) Phosphorus Level 4.2 MG/DL (2.5-4.9) Magnesium Level 3.1 MG/DL (1.8-2.4) Direct Bilirubin 0.2 MG/DL (0.0-0.3) Test 10/10/19 07:57 10/10/19 11:56 10/10/19 16:22 10/11/19 05:11 Arterial Blood pH 7.422 (7.350-7.450) Arterial Blood Partial Pressure CO2 32.4 mmHg (35.0-45.0) Arterial Blood Partial Pressure O2 90.1 mmHg (75.0-100.0) Arterial Blood HCO3 20.6 mmol/L (22.0-26.0) Arterial Blood Oxygen Saturation 96.6 % (95-100) Arterial Blood Base Excess -3.1 (-2-2) Rojas Test Positive Height (Feet): 5 Height (Inches): 5.00 Weight (Pounds): 146 Objective Physical Exam: Vitals: reviewed General: NAD HEENT: nc, at Neck: supple ++tracn/vent Chest: clear breath sounds bilaterally Cardiovascular: RRR, no s3, s4 Abdomen: soft, nontender, nd +gtube Extremities: no cce, normal range of motion Neuro: alert Evan Muhammad MD Oct 11, 2019 10:19
--- NOTE | 2019-10-11 10:48 | Pulmonology Progress Note ---
Yara Castro RADIO SCRIPT WRITER 10/11/19 1048: Subjective ROS Limited/Unobtainable: No Psychiatric: Reports: anxiety Allergies: Coded Allergies: No Known Allergies (Unverified , 10/10/17) All Systems: reviewed and negative except above Subjective fentanyl gtt dc 10/09 pt transferred to [facility] on vent AC with FiO2 40% no signs of resp distress on current settings remains afebrile, no leucocytosis Objective Last 24 Hour Vital Signs Date Time Temp Pulse Resp B/P (MAP) Pulse Ox O2 Delivery O2 Flow Rate FiO2 10/11/19 09:00 71 29 40 10/11/19 08:16 66 138/64 10/11/19 08:16 138/64 10/11/19 08:00 Mechanical Ventilator Mechanical Ventilator 10/11/19 08:00 30 10/11/19 08:00 98.1 66 25 138/64 (88) 99 10/11/19 08:00 74 10/11/19 07:28 81 20 98 Mechanical Ventilator 40 79 26 40 10/11/19 05:12 76 22 40 10/11/19 05:05 76 175/80 10/11/19 05:04 175/80 10/11/19 04:00 30 10/11/19 04:00 Mechanical Ventilator Mechanical Ventilator 10/11/19 03:45 76 29 169/78 (108) 98 10/11/19 03:30 78 32 183/81 (115) 98 10/11/19 03:15 76 30 169/74 (105) 98 10/11/19 03:15 75 10/11/19 03:15 77 30 40 10/11/19 03:00 81 25 182/82 (115) 97 10/11/19 02:45 82 28 182/97 (125) 98 10/11/19 02:30 80 29 176/79 (111) 98 10/11/19 02:26 82 31 176/87 (116) 97 10/11/19 02:06 85 30 182/85 (117) 97 10/11/19 02:00 89 27 192/85 (120) 96 10/11/19 01:45 81 28 184/76 (112) 97 10/11/19 01:30 78 31 179/78 (111) 97 10/11/19 01:19 81 31 96 Mechanical Ventilator 40 83 32 30 10/11/19 01:15 71 30 172/82 (112) 98 10/11/19 01:14 70 29 165/72 (103) 98 10/11/19 01:00 82 33 192/144 (160) 97 10/11/19 00:30 70 30 163/70 (101) 97 10/11/19 00:28 70 29 163/69 (100) 97 10/11/19 00:00 98.6 72 26 168/74 (105) 98 10/11/19 00:00 Mechanical Ventilator Mechanical Ventilator 10/10/19 23:55 75 170/80 10/10/19 23:30 78 31 176/78 (110) 97 10/10/19 23:15 78 30 185/79 (114) 97 10/10/19 23:14 78 10/10/19 23:12 77 30 40 10/10/19 23:00 74 30 171/75 (107) 97 10/10/19 22:45 73 28 168/74 (105) 98 10/10/19 22:30 76 29 175/76 (109) 97 10/10/19 22:15 70 24 163/71 (101) 97 10/10/19 22:00 78 28 174/74 (107) 97 10/10/19 21:45 78 25 168/71 (103) 98 10/10/19 21:30 82 32 171/71 (104) 98 10/10/19 21:15 84 29 175/78 (110) 98 10/10/19 21:07 90 172/78 10/10/19 21:06 172/78 10/10/19 21:00 80 27 172/78 (109) 98 10/10/19 20:45 86 28 179/76 (110) 97 10/10/19 20:45 40 10/10/19 20:41 93 30 30 10/10/19 20:30 95 25 182/80 (114) 94 10/10/19 20:15 80 26 167/71 (103) 94 10/10/19 20:00 98.0 82 27 167/73 (104) 94 10/10/19 20:00 Mechanical Ventilator Mechanical Ventilator 10/10/19 20:00 40 10/10/19 19:45 91 26 180/80 (113) 95 10/10/19 19:30 92 28 180/78 (112) 95 10/10/19 19:21 94 10/10/19 19:15 94 32 96 Mechanical Ventilator 30 89 26 30 10/10/19 19:15 82 27 176/74 (108) 94 10/10/19 19:00 89 22 158/76 (103) 98 10/10/19 18:18 184/81 10/10/19 18:00 97.6 99 27 184/81 (115) 100 10/10/19 17:38 86 189/83 10/10/19 17:33 189/83 10/10/19 17:10 86 31 30 10/10/19 17:00 90 26 189/83 (118) 95 10/10/19 16:00 86 29 183/78 (113) 100 10/10/19 16:00 87 10/10/19 16:00 Mechanical Ventilator Mechanical Ventilator 10/10/19 16:00 87 27 183/79 (113) 100 10/10/19 15:20 87 37 30 10/10/19 15:00 86 32 181/79 (113) 100 10/10/19 14:00 91 28 189/65 (106) 100 10/10/19 13:46 84 30 96 Mechanical Ventilator 30 89 26 30 10/10/19 13:28 199/85 10/10/19 13:28 199/85 10/10/19 13:00 98.4 82 28 199/85 (123) 92 10/10/19 12:23 40 10/10/19 12:00 Mechanical Ventilator Mechanical Ventilator 10/10/19 12:00 40 10/10/19 12:00 82 22 193/88 (123) 95 10/10/19 12:00 80 10/10/19 11:58 77 193/85 10/10/19 11:30 74 26 188/82 (117) 96 10/10/19 11:20 64 28 30 10/10/19 11:00 64 24 185/74 (111) 97 Intake and Output 10/10/19 10/11/19 19:00 07:00 Intake Total 1100 ml 540 ml Output Total 335 ml 260 ml Balance 765 ml 280 ml Intake Free Water 200 ml 100 ml Tube Feeding 480 ml 440 ml Other 420 ml Output Urine Total 335 ml 260 ml # Bowel Movements 2 2 Objective General Appearance: no apparent distress, bedridden middle age chronically ill looking female on vent AC 500-20- 40%, PEEP 5, awake, somewhat anxious Lines, tubes and drains: left jugular HD catheter HEENT: normocephalic, atraumatic, anicteric, trach - Shiley #7 cuffed XLT, secretions small amount, yellow color , thick consistency Respiratory/Chest: no accessory muscle use, few isolated rhonchi Cardiovascular/Chest: normal rate, regular rhythm - SR on tele Abdomen: normal bowel sounds, non tender, soft, G tube Genitourinary/Rectal: Norman Extremities: no edema Skin Exam: warm/dry, multiple tattoos all over the body Neurologic: abnormal gait, awake, no gross focal Musculoskeletal: atrophy - BLE Microbiology Date/Time Source Procedure Growth Status 10/08/19 16:40 Urine,Clean Catch Urine Culture - Preliminary Strep Species, Alpha Hemolytic YEAST Resulted Laboratory Tests 10/10/19 11:56: POC Whole Blood Glucose [Pending] 10/10/19 16:22: POC Whole Blood Glucose [Pending] 10/11/19 05:11: POC Whole Blood Glucose [Pending] Current Medications Medications (Trade) Dose Ordered Sig/Penny Route PRN Reason Start Time Stop Time Status Last Admin Dose Admin Acetaminophen (Tylenol) 325 mg Q6H PRN GT Temp >100.5 10/11/19 04:45 10/23/19 10:44 Albuterol/ Ipratropium (Albuterol/ Ipratropium) 3 ml Q6HRT HHN 10/11/19 07:00 10/14/19 12:59 10/11/19 07:18 Ascorbic Acid (Vitamin C) 500 mg DAILY ORAL 10/11/19 09:00 11/05/19 08:59 10/11/19 08:16 Chlorhexidine Gluconate (Ling-Hex 2%) 1 applic DAILY@2000 TOPIC 10/11/19 20:00 12/22/19 19:59 Clonidine HCl (Catapres TTS-3) 1 patch QWEEK TDERMAL 10/17/19 09:00 01/08/20 08:59 Dextrose (Dextrose 50%) 25 ml Q30M PRN IV Hypoglycemia 10/11/19 04:30 01/03/20 18:29 Dextrose (Dextrose 50%) 50 ml Q30M PRN IV Hypoglycemia 10/11/19 04:30 01/03/20 18:29 Diltiazem HCl (Cardizem Tab) 90 mg Q6HR GT 10/11/19 06:00 11/09/19 11:59 10/11/19 05:05 Docusate Sodium (Colace) 100 mg Q8H GT 10/11/19 08:30 10/29/19 08:29 Epoetin Gelacio (Epoetin Gelacio(ESRD on dialysis)) 10,000 unit MON- SUBQ 10/11/19 21:00 12/24/19 20:59 Haloperidol Lactate (Haldol) 5 mg Q6H PRN IM Agitation 10/11/19 05:00 11/22/19 10:59 Heparin Sodium (Porcine) (Heparin 5000 units/ml) 5,000 units EVERY 12 HOURS SUBQ 10/11/19 09:00 10/30/19 08:59 10/11/19 08:17 Insulin Aspart (NovoLOG) Q6HR SUBQ 10/11/19 06:00 01/03/20 20:59 Lansoprazole (Prevacid) 30 mg Q12HR GT 10/11/19 09:00 10/27/19 20:59 10/11/19 08:15 Lisinopril (PriniviL) 20 mg BID GT 10/11/19 09:00 11/08/19 17:59 10/11/19 08:16 Metoclopramide HCl (Reglan) 5 mg EVERY 6 HOURS GT 10/11/19 06:00 11/08/19 11:59 Metoprolol Tartrate (Lopressor) 25 mg Q12HR GT 10/11/19 09:00 01/07/20 20:59 10/11/19 08:16 Minoxidil (Loniten) 2.5 mg Q8HR ORAL 10/11/19 06:00 01/08/20 13:59 10/11/19 05:04 Morphine Sulfate (Morphine Sulfate) 2 mg Q4H PRN IVP For Pain 10/11/19 04:42 10/16/19 04:41 10/11/19 10:25 Polyethylene Glycol (Miralax) 17 gm BEDTIME ORAL 10/11/19 21:00 10/31/19 20:59 Risperidone (RisperDAL) 2 mg BEDTIME ORAL 10/11/19 21:00 11/19/19 20:59 Sertraline HCl (Zoloft) 100 mg BEDTIME GT 10/11/19 21:00 10/15/19 20:59 Sorbitol (sorbitoL) 30 ml EVERY 6 HOURS PRN GT Constipation 10/11/19 06:00 10/29/19 17:59 Vitamin B Complex/ Vit C/Folic Acid (Nephrovite) 1 tab DAILY ORAL 10/11/19 09:00 11/05/19 08:59 10/11/19 08:16 Zinc Sulfate (Zinc Sulfate) 220 mg DAILY ORAL 10/11/19 09:00 10/21/19 08:59 10/11/19 08:16 Assessment/Plan Assessment/Plan ASSESSMENT Acute on chronic hypoxemic respiratory failure ( trach dependent), now on vent Tracheostomy status, s/p change to cuffed trach Sepsis Pulmonary edema Pleural effusion -worsening left pl effusion s/p thoracentesis L pleural effusion 09/26 -900 ml Pneumonia with MDR Pseudomonas UTI CHF ? cardiorenal COPD Acute kidney injury and chronic kidney disease-requiring start of HD Hypertension Atrial fibrillation Moderate pulm HTN Moderate AR Dysphagia , feeding by G-tube Electrolyte abnormalities Anemia Toxic metabolic encephalopathy likely due to sepsis and ARF HTN PAF PLAN OF CARE now in [facility] on vent AC trach changed 8/4 pm from uncuffed to cuffed Shiley#[address] chest w/out contrast: - Bilateral pleural effusions, right greater than left, with bilateral lower lobe consolidation or volume loss. -Ground-glass densities in the upper lobes bilaterally. This is not specific. -Tracheostomy. -Increased superior mediastinal density. Stability of adenopathy cannot be excluded. -Atherosclerotic change. -Gastrostomy. -Ascites. -Left renal stent with left hydronephrosis and renal atrophy. VQ scan -> low probability for PE worsening resp status was due to need for HD, now after HD started, resp status improving, down to PEEP 5 and AC 20 trach care , pulmonary toilet Mucomyst was prior dc given lots of thin secretions, continue Duoneb prn rapid COVID 19 NGT x3 now off Fentanyl gtt since 10/09 FiO2 down to 40% last ABG stable 10/09 start CPAP trials this am as tolerated, discussed with RN s/p thoracentesis L pleural effusion 09/26 am -> 900 ml fluid analysis noted, unlikely empyema given small # of WBC fup with fluid cx ( apparently never sent despite orders) cytology -> NGT, no malignant cells aspiration precautions venous Duplex BLE -> NGT DVT prophylaxis pulm toilet, BP elevated BP regimen optimized as per nephro monitor volumes was on gentle IVF-> dc s/p prior diuretic-Lasix require initiation of HD continue further HD as per nephro with close monitoring of volumes, renal parameters and lytes -per nephro recs abx as per ID- s/p gent x 1, now on Vanco and Zerbaxa , completed 10/02 SCX 09/15 + Proteus, SCX 09/22 Pseudomonas MDR UCX 09/14 + Providencia , UCX 09/22 VRE - K only BCX 09/14 Staph epidermidis, BCX 09/15 NGT , BCX 09/22 and 09/26 - NGTD UA 10/07 noted, fup with UCX -monitor off abx as per ID recs ECHO with pEF , moderate pulm HTN and moderate AR BP management with current regimen of BB, Cardizem and Hydralazine, remains in SR monitor HH with goal to keep Hgb >7, heme on board on EPO supportive care pain management wound care bowel regimen case discussed and evaluated by supervising physician Bang Guardado MD 10/11/19 1422: Subjective Allergies: Coded Allergies: No Known Allergies (Unverified , 10/10/17) Assessment/Plan Assessment/Plan Patient seen and examined with RADIO SCRIPT WRITER. Agree with above A&P as it reflects our joint deliberations. Yara Castro NP Oct 11, 2019 10:48 Bang Guardado MD Oct 11, 2019 14:22
--- NOTE | 2019-10-11 11:45 | General Progress Note ---
Assessment/Plan Status: stable Subjective Constitutional: Reports: other - Patient is awake febrile and hemodynamically stable HEENT: Reports: no symptoms, eye pain, blurred vision, tearing, double vision, ear pain, ear discharge, nose pain, nose congestion, throat pain, throat swelling, mouth pain, mouth swelling, other - Denies any shortness of breath Cardiovascular: Reports: other - She denies any chest pain shortness of breath palpitations dizziness Respiratory: Reports: other - She is anxious depressed easily tearful unknown reason Gastrointestinal/Abdominal: Reports: other - Appetite is poor but she tolerated feeding without Genitourinary: Reports: no symptoms, other - She has no urinary symptom Neurologic/Psychiatric: Reports: other - She is alert oriented and able to communicate Hematologic/Lymphatic: Reports: other - Her most pronounced symptom now is weakness despite of her weakness will be transferred to [facility] Allergies: Coded Allergies: No Known Allergies (Unverified , 10/10/17) Objective Last 24 Hour Vital Signs Date Time Temp Pulse Resp B/P (MAP) Pulse Ox O2 Delivery O2 Flow Rate FiO2 10/11/19 09:00 71 29 40 10/11/19 08:16 66 138/64 10/11/19 08:16 138/64 10/11/19 08:00 Mechanical Ventilator Mechanical Ventilator 10/11/19 08:00 30 10/11/19 08:00 98.1 66 25 138/64 (88) 99 10/11/19 08:00 74 10/11/19 07:28 81 20 98 Mechanical Ventilator 40 79 26 40 10/11/19 05:12 76 22 40 10/11/19 05:05 76 175/80 10/11/19 05:04 175/80 10/11/19 04:00 30 10/11/19 04:00 Mechanical Ventilator Mechanical Ventilator 10/11/19 03:45 76 29 169/78 (108) 98 10/11/19 03:30 78 32 183/81 (115) 98 10/11/19 03:15 76 30 169/74 (105) 98 10/11/19 03:15 75 10/11/19 03:15 77 30 40 10/11/19 03:00 81 25 182/82 (115) 97 10/11/19 02:45 82 28 182/97 (125) 98 10/11/19 02:30 80 29 176/79 (111) 98 10/11/19 02:26 82 31 176/87 (116) 97 10/11/19 02:06 85 30 182/85 (117) 97 10/11/19 02:00 89 27 192/85 (120) 96 10/11/19 01:45 81 28 184/76 (112) 97 10/11/19 01:30 78 31 179/78 (111) 97 10/11/19 01:19 81 31 96 Mechanical Ventilator 40 83 32 30 10/11/19 01:15 71 30 172/82 (112) 98 10/11/19 01:14 70 29 165/72 (103) 98 10/11/19 01:00 82 33 192/144 (160) 97 10/11/19 00:30 70 30 163/70 (101) 97 10/11/19 00:28 70 29 163/69 (100) 97 10/11/19 00:00 98.6 72 26 168/74 (105) 98 10/11/19 00:00 Mechanical Ventilator Mechanical Ventilator 10/10/19 23:55 75 170/80 10/10/19 23:30 78 31 176/78 (110) 97 10/10/19 23:15 78 30 185/79 (114) 97 10/10/19 23:14 78 10/10/19 23:12 77 30 40 10/10/19 23:00 74 30 171/75 (107) 97 10/10/19 22:45 73 28 168/74 (105) 98 10/10/19 22:30 76 29 175/76 (109) 97 10/10/19 22:15 70 24 163/71 (101) 97 10/10/19 22:00 78 28 174/74 (107) 97 10/10/19 21:45 78 25 168/71 (103) 98 10/10/19 21:30 82 32 171/71 (104) 98 10/10/19 21:15 84 29 175/78 (110) 98 10/10/19 21:07 90 172/78 10/10/19 21:06 172/78 10/10/19 21:00 80 27 172/78 (109) 98 10/10/19 20:45 86 28 179/76 (110) 97 10/10/19 20:45 40 10/10/19 20:41 93 30 30 10/10/19 20:30 95 25 182/80 (114) 94 10/10/19 20:15 80 26 167/71 (103) 94 10/10/19 20:00 98.0 82 27 167/73 (104) 94 10/10/19 20:00 Mechanical Ventilator Mechanical Ventilator 10/10/19 20:00 40 10/10/19 19:45 91 26 180/80 (113) 95 10/10/19 19:30 92 28 180/78 (112) 95 10/10/19 19:21 94 10/10/19 19:15 94 32 96 Mechanical Ventilator 30 89 26 30 10/10/19 19:15 82 27 176/74 (108) 94 10/10/19 19:00 89 22 158/76 (103) 98 10/10/19 18:18 184/81 10/10/19 18:00 97.6 99 27 184/81 (115) 100 10/10/19 17:38 86 189/83 10/10/19 17:33 189/83 10/10/19 17:10 86 31 30 10/10/19 17:00 90 26 189/83 (118) 95 10/10/19 16:00 86 29 183/78 (113) 100 10/10/19 16:00 87 10/10/19 16:00 Mechanical Ventilator Mechanical Ventilator 10/10/19 16:00 87 27 183/79 (113) 100 10/10/19 15:20 87 37 30 10/10/19 15:00 86 32 181/79 (113) 100 10/10/19 14:00 91 28 189/65 (106) 100 10/10/19 13:46 84 30 96 Mechanical Ventilator 30 89 26 30 10/10/19 13:28 199/85 10/10/19 13:28 199/85 10/10/19 13:00 98.4 82 28 199/85 (123) 92 10/10/19 12:23 40 10/10/19 12:00 Mechanical Ventilator Mechanical Ventilator 10/10/19 12:00 40 10/10/19 12:00 82 22 193/88 (123) 95 10/10/19 12:00 80 10/10/19 11:58 77 193/85 Intake and Output 10/10/19 10/11/19 19:00 07:00 Intake Total 1100 ml 540 ml Output Total 335 ml 260 ml Balance 765 ml 280 ml Intake Free Water 200 ml 100 ml Tube Feeding 480 ml 440 ml Other 420 ml Output Urine Total 335 ml 260 ml # Bowel Movements 2 2 Laboratory Tests 10/10/19 11:56: POC Whole Blood Glucose [Pending] 10/10/19 16:22: POC Whole Blood Glucose [Pending] 10/11/19 05:11: POC Whole Blood Glucose [Pending] Height (Feet): 5 Height (Inches): 5.00 Weight (Pounds): 146 General Appearance: no apparent distress, lethargic Neck: supple Cardiovascular: normal rate, regular rhythm, regularly irregular Respiratory/Chest: lungs clear, normal breath sounds Abdomen: non tender, soft, no mass Genitourinary/Rectal: other - She has not been dialyzed now for 5 days Extremities: non-tender, normal inspection, other - With diffuse lower extremity muscle wasting Neurologic: alert, oriented x 3, responsive Skin: warm/dry Lucas Dong MD Oct 11, 2019 11:45
--- NOTE | 2019-10-11 12:24 | Nephrology Progress Note ---
Assessment/Plan Problem List: (1) JAVIER (acute kidney injury) (2) Renal failure (ARF), acute on chronic (3) Dehydration (4) Electrolyte imbalance (5) Anemia (6) Respiratory failure, acute and chronic (7) COPD with exacerbation Assessment Patient is presented with sepsis and pneumonia and UTI Patient has acute renal failure, possible underlying chronic kidney failure Severe anemia Electrolyte imbalances: Hyponatremia, hypo-kalemia Chronic respiratory failure, COPD exacerbation Plan October 10: Blood pressure medication adjusted. Will check lab tomorrow. Dialysis as needed. Urine output remains low. October 09: Lab reviewed. Remains oliguric. Will give trial of Zaroxolyn. Continue per consultants. Adjust blood pressure medication. Will add Zaroxolyn and increased dose of Cardizem and add clonidine patch for better BP control October 08: Labs reviewed. Patient oliguric. Blood pressure elevated, BP medication adjusted. Recheck lab tomorrow. Dialysis and ultrafiltration as needed. October 07: Labs reviewed. Patient was dialyzed yesterday. 3000 mL fluid was removed. Patient appears to need periodic (twice a week minimum) dialysis for ultrafiltration. Continue to monitor renal parameters. Continue per consultants. October 06: Labs reviewed. Discussed with pulmonary. Will attempt dialysis and ultrafiltration. Continue per consultants. October 05: Lab reviewed. Serum creatinine rising. Blood pressure stabilized. Will recheck lab tomorrow. Dialysis as needed. Will increase lisinopril to 10 mg twice a day. October 04: Lab reviewed. Blood pressure medication adjusted since the patient is hypotensive. Serum creatinine rising. Recheck labs tomorrow. Dialysis as needed. Discussed with RN. October 03: Lab reviewed. Zestril added to BP medication. 1 dose of Seroquel ordered for agitation. Continue to monitor renal parameters. Continue per consultants. October 02: Lab reviewed. Potassium supplement IV given. 3% saline 250 cc ordered. Responded well to Zaroxolyn yesterday. Will continue to monitor electrolytes and renal parameters. Will increase minoxidil to 2.5 mg every 6 hours. October 01: Labs reviewed. Potassium supplement given. Last dialysis September 29. Serum creatinine rising gradually. Urine output very low. Patient appears to continue to need dialysis at least twice a week. Blood pressure still running high I will switch the hydralazine to minoxidil. We will give 1 dose of Zaroxolyn 10 mg today. Will check renal parameters tomorrow. September 30: Patient dialyzed yesterday. 3 L removed. Labs reviewed. Potassium supplement given. Continue per consultants. It appears that the patient required dialysis 2-3 times a week. September 29: Lab reviewed. Chest x-ray result noted. Continues to have pulmonary congestion. Urine output low. Will attempt dialysis again today with ultrafiltration. September 28: Lab reviewed. ABG reviewed. Potassium supplement given. No dialysis at this point. Will eval patient status and renal parameters daily. September 27: Lab reviewed. Last dialysis September 25. Continue to monitor renal parameters. Hemodialysis as needed. September 26: Lab reviewed. Dialyzed yesterday. Potassium supplement given. Medication list reviewed. Will observe renal parameters and arrange for dialysis as needed. September 25: Lab reviewed. Currently on hemodialysis. Tolerating well. Stable from renal standpoint of view. Blood pressure medication adjusted by increasing hydralazine. September 24: Lab reviewed. ABG reviewed. Both lab and ABG much improved. Patient was dialyzed yesterday. We will attempt dialysis tomorrow again. Will adjust that blood pressure medication dosages. September 23: Lab reviewed. ABG reviewed. Patient acidotic. IV bicarb 1 dose is given. Patient has dialysis catheter. Will order dialysis for ultrafiltration and correction of acid-base. Discussed with ERASMO Mohr. September 22: Labs reviewed. Potassium high. Kayexalate and Reglan given. Will discuss with the consultants regarding initiation of dialysis. September 21: Patient is being sedated. Labs reviewed. Potassium supplement discontinued. GFR 20. Continue per current treatment plan. Dialysis and ultrafiltration is a consideration. September 20: Patient periodically agitated. Labs reviewed. Creatinine 2.4. Medication reviewed. Continue per consultants. Calculated creatinine clearance 21. May need isolated ultrafiltration on dialysis. Will discuss with PMD. Meanwhile hemoglobin is lower, defer transfusion to PMD. September 19: DC IV fluid. Zaroxolyn via GT tube. Potassium supplement. Attempt to diurese. Chest CT as bilateral pleural effusion. If diuresis unsuccessful, will consider dialysis and ultrafiltration. September 18: Potassium supplement IV given. Hemoglobin stable. Patient remains full code. Continue per consultants. Previously: Potassium supplement IV Slow IV hydration Epogen subcu Adjust blood pressure medication IV fluid, rate adjusted Norman catheter, intake and output Monitor renal parameters Avoid nephrotoxic's Antibiotics Per orders 2D echocardiogram Kidney ultrasound Subjective ROS Limited/Unobtainable: Yes Objective Objective Last 24 Hour Vital Signs Date Time Temp Pulse Resp B/P (MAP) Pulse Ox O2 Delivery O2 Flow Rate FiO2 10/11/19 12:00 30 10/11/19 12:00 Mechanical Ventilator Mechanical Ventilator 10/11/19 11:55 79 156/80 10/11/19 11:00 69 25 30 10/11/19 09:00 71 29 40 10/11/19 08:16 66 138/64 10/11/19 08:16 138/64 10/11/19 08:00 Mechanical Ventilator Mechanical Ventilator 10/11/19 08:00 30 10/11/19 08:00 98.1 66 25 138/64 (88) 99 10/11/19 08:00 74 10/11/19 07:28 81 20 98 Mechanical Ventilator 40 79 26 40 10/11/19 05:12 76 22 40 10/11/19 05:05 76 175/80 10/11/19 05:04 175/80 10/11/19 04:00 30 10/11/19 04:00 Mechanical Ventilator Mechanical Ventilator 10/11/19 03:45 76 29 169/78 (108) 98 10/11/19 03:30 78 32 183/81 (115) 98 10/11/19 03:15 76 30 169/74 (105) 98 10/11/19 03:15 75 10/11/19 03:15 77 30 40 10/11/19 03:00 81 25 182/82 (115) 97 10/11/19 02:45 82 28 182/97 (125) 98 10/11/19 02:30 80 29 176/79 (111) 98 10/11/19 02:26 82 31 176/87 (116) 97 10/11/19 02:06 85 30 182/85 (117) 97 10/11/19 02:00 89 27 192/85 (120) 96 10/11/19 01:45 81 28 184/76 (112) 97 10/11/19 01:30 78 31 179/78 (111) 97 10/11/19 01:19 81 31 96 Mechanical Ventilator 40 83 32 30 10/11/19 01:15 71 30 172/82 (112) 98 10/11/19 01:14 70 29 165/72 (103) 98 8/28/20 01:00 82 33 192/144 (160) 97 10/11/19 00:30 70 30 163/70 (101) 97 10/11/19 00:28 70 29 163/69 (100) 97 10/11/19 00:00 98.6 72 26 168/74 (105) 98 10/11/19 00:00 Mechanical Ventilator Mechanical Ventilator 10/10/19 23:55 75 170/80 10/10/19 23:30 78 31 176/78 (110) 97 10/10/19 23:15 78 30 185/79 (114) 97 10/10/19 23:14 78 10/10/19 23:12 77 30 40 10/10/19 23:00 74 30 171/75 (107) 97 10/10/19 22:45 73 28 168/74 (105) 98 10/10/19 22:30 76 29 175/76 (109) 97 10/10/19 22:15 70 24 163/71 (101) 97 10/10/19 22:00 78 28 174/74 (107) 97 10/10/19 21:45 78 25 168/71 (103) 98 10/10/19 21:30 82 32 171/71 (104) 98 10/10/19 21:15 84 29 175/78 (110) 98 10/10/19 21:07 90 172/78 10/10/19 21:06 172/78 10/10/19 21:00 80 27 172/78 (109) 98 10/10/19 20:45 86 28 179/76 (110) 97 10/10/19 20:45 40 10/10/19 20:41 93 30 30 10/10/19 20:30 95 25 182/80 (114) 94 10/10/19 20:15 80 26 167/71 (103) 94 10/10/19 20:00 98.0 82 27 167/73 (104) 94 10/10/19 20:00 Mechanical Ventilator Mechanical Ventilator 10/10/19 20:00 40 10/10/19 19:45 91 26 180/80 (113) 95 10/10/19 19:30 92 28 180/78 (112) 95 10/10/19 19:21 94 10/10/19 19:15 94 32 96 Mechanical Ventilator 30 89 26 30 10/10/19 19:15 82 27 176/74 (108) 94 10/10/19 19:00 89 22 158/76 (103) 98 10/10/19 18:18 184/81 10/10/19 18:00 97.6 99 27 184/81 (115) 100 10/10/19 17:38 86 189/83 10/10/19 17:33 189/83 10/10/19 17:10 86 31 30 10/10/19 17:00 90 26 189/83 (118) 95 10/10/19 16:00 86 29 183/78 (113) 100 10/10/19 16:00 87 10/10/19 16:00 Mechanical Ventilator Mechanical Ventilator 10/10/19 16:00 87 27 183/79 (113) 100 10/10/19 15:20 87 37 30 10/10/19 15:00 86 32 181/79 (113) 100 10/10/19 14:00 91 28 189/65 (106) 100 10/10/19 13:46 84 30 96 Mechanical Ventilator 30 89 26 30 10/10/19 13:28 199/85 10/10/19 13:28 199/85 10/10/19 13:00 98.4 82 28 199/85 (123) 92 10/10/19 12:23 40 Intake and Output 10/10/19 10/11/19 19:00 07:00 Intake Total 1100 ml 540 ml Output Total 335 ml 260 ml Balance 765 ml 280 ml Intake Free Water 200 ml 100 ml Tube Feeding 480 ml 440 ml Other 420 ml Output Urine Total 335 ml 260 ml # Bowel Movements 2 2 Laboratory Tests 10/10/19 16:22: POC Whole Blood Glucose [Pending] 10/11/19 05:11: POC Whole Blood Glucose [Pending] 10/11/19 11:39: POC Whole Blood Glucose [Pending] Height (Feet): 5 Height (Inches): 5.00 Weight (Pounds): 146 General Appearance: no apparent distress EENT: other - Patient on ventilator Cardiovascular: normal rate Respiratory/Chest: decreased breath sounds Abdomen: soft Objective No change Johnny Houston MD Oct 11, 2019 12:24
[2019-10-11] MEDS: Haloperidol 5mg/ml Inj IM PRN (12:34)
--- NOTE | 2019-10-11 13:16 | Infectious Diseases Prog Note ---
Assessment/Plan 49yo F with: Acute hypoxic resp failure: Now on vent, worsening, FiO2 100% > 80% 09/27 > 60% >40% 10/08 >30% 10/09 Pneumonia, COVID19 neg x3 - MDR PsA pneumonia,s pr x 10/07 CXR: Bilateral infiltrates versus edema, left greater than right pleural effusions are again demonstrated, unchanged. There is slightly better inspiration currently. 09/29 CXR: Bilateral edema versus infiltrates appears slightly worse than on the prior study. There is probably some pleural fluid on the left. 09/26 S/P thoracentesis, 900cc removed, only 67 WBC in fluid analysis, unlikely empyema 09/26 CXR: Worsening R perihilar opacity 09/26 BCx Neg 09/24 CXR: Previously demonstrated right lateral basilar lucency is no longer evident, was presumably a skin fold artifact. Bilateral infiltrates and left pleural effusion are probably unchanged allowing for slight differences in technique. 09/22 Resp cx + MDR PsA (S-gent; I-colistin; R-levofloxacin, Zosyn, angelo) 09/22 BCx NTD 09/22 CXR: worsening BL pna 09/22 UA w/ persistent pyuria, now on HD, UCx +VRE, most likely colonizer as improving wo tx for this 09/19 V/Q scan, low probability of PE 09/18 Rapid COVID PCR neg 09/18 CT chest: Markedly suboptimal examination due to lack of IV contrast material. Bilateral pleural effusions, right greater than left, with bilateral lower lobe consolidation or volume loss. Ground glass densities in the upper lobes bilaterally. This is not specific. Tracheostomy. Increased superior mediastinal density. Stability of adenopathy cannot be excluded. Atherosclerotic change. Gastrostomy. Ascites. Left renal stent with left hydronephrosis and renal atrophy. 09/17 Chest US: Trace right and small left pleural effusions. No safe window identified for bedside thoracentesis. Note that the majority of the left pleural effusion is subpulmonic. 09/16 CXR: Worsening of right lung infiltrates and right effusion. V. duplex: NO DVT D-dimer elevated 09/15 Rapid COVID PCR neg 09/15 Sp cx ESBL P. mirablis 09/14 CXR: Bilateral airspace opacities, preferentially involving the right lung, consistent with multifocal infiltrate. Trace bilateral pleural effusions. No pneumothorax. Rapid COVID PCR neg Urine legionella neg 09/16 GPC bacteremia, real vs contaminant; does have hx of infected PPM- 09/14 Bcx 2/ S. epidermis; 09/15, , Bcx Neg 2d echo: no vegetations seen UTI, sp rx 8/2 u/a wbc tnct, nit neg, leuk +3; ucx >100k MDR P. stuarti (S Ceftriaxone, Meropenem) 09/22 UA w/ ongoing pyuria, unchanged 10/07 u/a wbc tnct, nit neg, leuk ; ucx >100k alphahemolytic strep Unstageable sacral ulceration Afebrile Leukocytosis, mild; fluctuates bt -- SP JVAIER on CKD --> now on HD Renal US: Limited exam due to abdominal ascites and shadowing from bowel gas. CT recommended for more sensitive evaluation. Moderate right hydronephrosis. Increased renal parenchymal echogenicity suggesting intrinsic/ medical renal disease. Question indwelling left ureteral stent versus artifact. Bladder not visualized. 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 epi-11/2018, sp > 6weeks IV vancomycin 11/27 SP ABBIE: no evidence for vegetation on any of the valves 11/26/18 SP PPM removal: OR findings:The fibrous capsule enclosing the generator was then opened and there was a [id number] amount of yellowish fluid drainage. The generator was then removed.Atrial and ventricular leads were detached. The necrotic tissue of the pocket was then removed and the pocket was flushed with an antibiotic solution. Capsule, wound tissue and lead tip cx: Neg 2d echo: no vegetation seen US chest: 4.6 x 3.4 x 0.9 cm hypoechoic/anechoic area overlying left chest pacemaker power pack. This could represent either a discrete fluid collection or a focal area of very edematous tissue. Infected fluid pocket also possible. 11/18 Bcx 3/4 S. epi; 11/20 Bcx neg; 11/24 Bcx Neg; 11/27 Bcx Neg Hx of PNA 11/2019? sp cx PsA (arnett S), ABC (I Ceftriaxone; otherwise negative) Sp cx MRSA, ABC (I Ceftriaxone; otherwise S) PMH: Afib HTN Dysphagia sp GT Aortic dissection s/p repair 2017, S/p PPM Parkinson's Disease Schizophrenia Anxiety COPD Chronic resp failure s/p trach Hx of tracheal bleeding [facility] resident ([facility]) Plan: Start IV Daptomycin #1/5 for UTI -monitor CPK 10/03 SP Zerbaxa #6, gent #7 for MDR PsA pna 09/29 SP vanco #15 for S.epi in BCx 09/27 SP angelo #13 8/ SP Cefepime #3, Levaquin #3 Monitor CBC/CMP, temperatures trach/ peg care Aspiration precautions D/w RN Thank you for this consultation. Will continue to follow along with you. Subjective Allergies: Coded Allergies: No Known Allergies (Unverified , 10/10/17) transferred form ICU to [facility] afebrile fio2 30% Objective Last 24 Hour Vital Signs Date Time Temp Pulse Resp B/P (MAP) Pulse Ox O2 Delivery O2 Flow Rate FiO2 10/11/19 12:00 30 10/11/19 12:00 Mechanical Ventilator Mechanical Ventilator 10/11/19 12:00 97.7 73 25 176/73 (107) 92 10/11/19 11:55 79 156/80 10/11/19 11:00 69 25 30 10/11/19 09:00 71 29 40 10/11/19 08:16 66 138/64 10/11/19 08:16 138/64 10/11/19 08:00 Mechanical Ventilator Mechanical Ventilator 10/11/19 08:00 30 10/11/19 08:00 98.1 66 25 138/64 (88) 99 10/11/19 08:00 74 10/11/19 07:28 81 20 98 Mechanical Ventilator 40 79 26 40 10/11/19 05:12 76 22 40 10/11/19 05:05 76 175/80 10/11/19 05:04 175/80 10/11/19 04:00 30 10/11/19 04:00 Mechanical Ventilator Mechanical Ventilator 10/11/19 03:45 76 29 169/78 (108) 98 10/11/19 03:30 78 32 183/81 (115) 98 10/11/19 03:15 76 30 169/74 (105) 98 10/11/19 03:15 75 10/11/19 03:15 77 30 40 10/11/19 03:00 81 25 182/82 (115) 97 10/11/19 02:45 82 28 182/97 (125) 98 10/11/19 02:30 80 29 176/79 (111) 98 10/11/19 02:26 82 31 176/87 (116) 97 10/11/19 02:06 85 30 182/85 (117) 97 10/11/19 02:00 89 27 192/85 (120) 96 10/11/19 01:45 81 28 184/76 (112) 97 10/11/19 01:30 78 31 179/78 (111) 97 10/11/19 01:19 81 31 96 Mechanical Ventilator 40 83 32 30 10/11/19 01:15 71 30 172/82 (112) 98 10/11/19 01:14 70 29 165/72 (103) 98 10/11/19 01:00 82 33 192/144 (160) 97 10/11/19 00:30 70 30 163/70 (101) 97 10/11/19 00:28 70 29 163/69 (100) 97 10/11/19 00:00 98.6 72 26 168/74 (105) 98 10/11/19 00:00 Mechanical Ventilator Mechanical Ventilator 10/10/19 23:55 75 170/80 10/10/19 23:30 78 31 176/78 (110) 97 10/10/19 23:15 78 30 185/79 (114) 97 10/10/19 23:14 78 10/10/19 23:12 77 30 40 10/10/19 23:00 74 30 171/75 (107) 97 10/10/19 22:45 73 28 168/74 (105) 98 10/10/19 22:30 76 29 175/76 (109) 97 10/10/19 22:15 70 24 163/71 (101) 97 10/10/19 22:00 78 28 174/74 (107) 97 10/10/19 21:45 78 25 168/71 (103) 98 10/10/19 21:30 82 32 171/71 (104) 98 10/10/19 21:15 84 29 175/78 (110) 98 10/10/19 21:07 90 172/78 10/10/19 21:06 172/78 10/10/19 21:00 80 27 172/78 (109) 98 10/10/19 20:45 86 28 179/76 (110) 97 10/10/19 20:45 40 10/10/19 20:41 93 30 30 10/10/19 20:30 95 25 182/80 (114) 94 10/10/19 20:15 80 26 167/71 (103) 94 10/10/19 20:00 98.0 82 27 167/73 (104) 94 10/10/19 20:00 Mechanical Ventilator Mechanical Ventilator 10/10/19 20:00 40 10/10/19 19:45 91 26 180/80 (113) 95 10/10/19 19:30 92 28 180/78 (112) 95 10/10/19 19:21 94 10/10/19 19:15 94 32 96 Mechanical Ventilator 30 89 26 30 10/10/19 19:15 82 27 176/74 (108) 94 10/10/19 19:00 89 22 158/76 (103) 98 10/10/19 18:18 184/81 10/10/19 18:00 97.6 99 27 184/81 (115) 100 10/10/19 17:38 86 189/83 10/10/19 17:33 189/83 10/10/19 17:10 86 31 30 10/10/19 17:00 90 26 189/83 (118) 95 10/10/19 16:00 86 29 183/78 (113) 100 10/10/19 16:00 87 10/10/19 16:00 Mechanical Ventilator Mechanical Ventilator 10/10/19 16:00 87 27 183/79 (113) 100 10/10/19 15:20 87 37 30 10/10/19 15:00 86 32 181/79 (113) 100 10/10/19 14:00 91 28 189/65 (106) 100 10/10/19 13:46 84 30 96 Mechanical Ventilator 30 89 26 30 10/10/19 13:28 199/85 10/10/19 13:28 199/85 Height (Feet): 5 Height (Inches): 5.00 Weight (Pounds): 146 Gen: no distress Cardiovascular: RrR Respiratory: decreased breath sounds Abdomen: soft, non-tender, present bowel sounds Extremities: no edema, no tenderness, no cyanosis Microbiology Date/Time Source Procedure Growth Status 10/08/19 16:40 Urine,Clean Catch Urine Culture - Preliminary Strep Species, Alpha Hemolytic YEAST Resulted Laboratory Tests Test 10/10/19 16:22 10/11/19 05:11 10/11/19 11:39 POC Whole Blood Glucose Pending Pending Pending Current Medications Medications (Trade) Dose Ordered Sig/Penny Route PRN Reason Start Time Stop Time Status Last Admin Dose Admin Acetaminophen (Tylenol) 325 mg Q6H PRN GT Temp >100.5 10/11/19 04:45 10/23/19 10:44 Albuterol/ Ipratropium (Albuterol/ Ipratropium) 3 ml Q6HRT HHN 10/11/19 07:00 10/14/19 12:59 10/11/19 07:18 Ascorbic Acid (Vitamin C) 500 mg DAILY ORAL 10/11/19 09:00 11/05/19 08:59 10/11/19 08:16 Chlorhexidine Gluconate (Ling-Hex 2%) 1 applic DAILY@2000 TOPIC 10/11/19 20:00 12/22/19 19:59 Clonidine HCl (Catapres TTS-3) 1 patch QWEEK TDERMAL 10/17/19 09:00 01/08/20 08:59 Dextrose (Dextrose 50%) 25 ml Q30M PRN IV Hypoglycemia 10/11/19 04:30 01/03/20 18:29 Dextrose (Dextrose 50%) 50 ml Q30M PRN IV Hypoglycemia 10/11/19 04:30 01/03/20 18:29 Diltiazem HCl (Cardizem Tab) 90 mg Q6HR GT 10/11/19 06:00 11/09/19 11:59 10/11/19 11:55 Docusate Sodium (Colace) 100 mg Q8H GT 10/11/19 08:30 10/29/19 08:29 Epoetin Gelacio (Epoetin Gelacio(ESRD on dialysis)) 10,000 unit MON-MON-MON SUBQ 10/11/19 21:00 12/24/19 20:59 Haloperidol Lactate (Haldol) 5 mg Q6H PRN IM Agitation 10/11/19 05:00 11/22/19 10:59 10/11/19 12:34 Heparin Sodium (Porcine) (Heparin 5000 units/ml) 5,000 units EVERY 12 HOURS SUBQ 10/11/19 09:00 10/30/19 08:59 10/11/19 08:17 Insulin Aspart (NovoLOG) Q6HR SUBQ 10/11/19 06:00 01/03/20 20:59 Lansoprazole (Prevacid) 30 mg Q12HR GT 10/11/19 09:00 10/27/19 20:59 10/11/19 08:15 Lisinopril (PriniviL) 20 mg BID GT 10/11/19 09:00 11/08/19 17:59 10/11/19 08:16 Metoclopramide HCl (Reglan) 5 mg EVERY 6 HOURS GT 10/11/19 06:00 11/08/19 11:59 10/11/19 11:55 Metoprolol Tartrate (Lopressor) 25 mg Q12HR GT 10/11/19 09:00 01/07/20 20:59 10/11/19 08:16 Minoxidil (Loniten) 2.5 mg Q8HR ORAL 10/11/19 06:00 01/08/20 13:59 10/11/19 05:04 Morphine Sulfate (Morphine Sulfate) 2 mg Q4H PRN IVP For Pain 10/11/19 04:42 10/16/19 04:41 10/11/19 10:25 Polyethylene Glycol (Miralax) 17 gm BEDTIME ORAL 10/11/19 21:00 10/31/19 20:59 Risperidone (RisperDAL) 2 mg BEDTIME ORAL 10/11/19 21:00 11/19/19 20:59 Sertraline HCl (Zoloft) 100 mg BEDTIME GT 10/11/19 21:00 10/15/19 20:59 Sorbitol (sorbitoL) 30 ml EVERY 6 HOURS PRN GT Constipation 10/11/19 06:00 10/29/19 17:59 Vitamin B Complex/ Vit C/Folic Acid (Nephrovite) 1 tab DAILY ORAL 10/11/19 09:00 11/05/19 08:59 10/11/19 08:16 Zinc Sulfate (Zinc Sulfate) 220 mg DAILY ORAL 10/11/19 09:00 10/21/19 08:59 10/11/19 08:16 Doreen Nino M.D. Oct 11, 2019 13:16
--- NOTE | 2019-10-11 13:20 | Surgery Progress Note ---
Surgery Progress Note Subjective Symptoms: improved, tolerating diet, passing flatus Additional Comments out of icu inmproved Objective Last 24 Hour Vital Signs Date Time Temp Pulse Resp B/P (MAP) Pulse Ox O2 Delivery O2 Flow Rate FiO2 10/11/19 13:09 172/79 10/11/19 12:00 30 10/11/19 12:00 Mechanical Ventilator Mechanical Ventilator 10/11/19 12:00 97.7 73 25 176/73 (107) 92 10/11/19 11:55 79 156/80 10/11/19 11:00 69 25 30 10/11/19 09:00 71 29 40 10/11/19 08:16 66 138/64 10/11/19 08:16 138/64 10/11/19 08:00 Mechanical Ventilator Mechanical Ventilator 10/11/19 08:00 30 10/11/19 08:00 98.1 66 25 138/64 (88) 99 10/11/19 08:00 74 10/11/19 07:28 81 20 98 Mechanical Ventilator 40 79 26 40 10/11/19 05:12 76 22 40 10/11/19 05:05 76 175/80 10/11/19 05:04 175/80 10/11/19 04:00 30 10/11/19 04:00 Mechanical Ventilator Mechanical Ventilator 10/11/19 03:45 76 29 169/78 (108) 98 10/11/19 03:30 78 32 183/81 (115) 98 10/11/19 03:15 76 30 169/74 (105) 98 10/11/19 03:15 75 10/11/19 03:15 77 30 40 10/11/19 03:00 81 25 182/82 (115) 97 10/11/19 02:45 82 28 182/97 (125) 98 10/11/19 02:30 80 29 176/79 (111) 98 10/11/19 02:26 82 31 176/87 (116) 97 10/11/19 02:06 85 30 182/85 (117) 97 10/11/19 02:00 89 27 192/85 (120) 96 10/11/19 01:45 81 28 184/76 (112) 97 10/11/19 01:30 78 31 179/78 (111) 97 10/11/19 01:19 81 31 96 Mechanical Ventilator 40 83 32 30 10/11/19 01:15 71 30 172/82 (112) 98 10/11/19 01:14 70 29 165/72 (103) 98 10/11/19 01:00 82 33 192/144 (160) 97 10/11/19 00:30 70 30 163/70 (101) 97 10/11/19 00:28 70 29 163/69 (100) 97 10/11/19 00:00 98.6 72 26 168/74 (105) 98 10/11/19 00:00 Mechanical Ventilator Mechanical Ventilator 10/10/19 23:55 75 170/80 10/10/19 23:30 78 31 176/78 (110) 97 10/10/19 23:15 78 30 185/79 (114) 97 10/10/19 23:14 78 10/10/19 23:12 77 30 40 10/10/19 23:00 74 30 171/75 (107) 97 10/10/19 22:45 73 28 168/74 (105) 98 10/10/19 22:30 76 29 175/76 (109) 97 10/10/19 22:15 70 24 163/71 (101) 97 10/10/19 22:00 78 28 174/74 (107) 97 10/10/19 21:45 78 25 168/71 (103) 98 10/10/19 21:30 82 32 171/71 (104) 98 10/10/19 21:15 84 29 175/78 (110) 98 10/10/19 21:07 90 172/78 10/10/19 21:06 172/78 10/10/19 21:00 80 27 172/78 (109) 98 10/10/19 20:45 86 28 179/76 (110) 97 10/10/19 20:45 40 10/10/19 20:41 93 30 30 10/10/19 20:30 95 25 182/80 (114) 94 10/10/19 20:15 80 26 167/71 (103) 94 10/10/19 20:00 98.0 82 27 167/73 (104) 94 10/10/19 20:00 Mechanical Ventilator Mechanical Ventilator 10/10/19 20:00 40 10/10/19 19:45 91 26 180/80 (113) 95 10/10/19 19:30 92 28 180/78 (112) 95 10/10/19 19:21 94 10/10/19 19:15 94 32 96 Mechanical Ventilator 30 89 26 30 10/10/19 19:15 82 27 176/74 (108) 94 10/10/19 19:00 89 22 158/76 (103) 98 10/10/19 18:18 184/81 10/10/19 18:00 97.6 99 27 184/81 (115) 100 10/10/19 17:38 86 189/83 10/10/19 17:33 189/83 10/10/19 17:10 86 31 30 10/10/19 17:00 90 26 189/83 (118) 95 10/10/19 16:00 86 29 183/78 (113) 100 10/10/19 16:00 87 10/10/19 16:00 Mechanical Ventilator Mechanical Ventilator 10/10/19 16:00 87 27 183/79 (113) 100 10/10/19 15:20 87 37 30 10/10/19 15:00 86 32 181/79 (113) 100 10/10/19 14:00 91 28 189/65 (106) 100 10/10/19 13:46 84 30 96 Mechanical Ventilator 30 89 26 30 10/10/19 13:28 199/85 10/10/19 13:28 199/85 I&O Intake and Output 10/10/19 10/11/19 19:00 07:00 Intake Total 1100 ml 540 ml Output Total 335 ml 260 ml Balance 765 ml 280 ml Intake Free Water 200 ml 100 ml Tube Feeding 480 ml 440 ml Other 420 ml Output Urine Total 335 ml 260 ml # Bowel Movements 2 2 Dressing: saturated Cardiovascular: RSR Respiratory: decreased breath sounds Abdomen: soft, tenderness, present bowel sounds Extremities: no edema, no tenderness, no cyanosis Laboratory Tests Test 10/10/19 16:22 10/11/19 05:11 10/11/19 11:39 POC Whole Blood Glucose Pending Pending Pending Plan Problems: (1) Anemia (2) Proteinuria (3) UTI (urinary tract infection) (4) ARF (acute renal failure) (5) ACS (acute coronary syndrome) (6) Respiratory failure, acute and chronic (7) HCAP (healthcare-associated pneumonia) (8) Abrasion of lip, initial encounter (9) COPD with exacerbation (10) Hypokalemia (11) Sepsis Assessment & Plan: Leukocytosis, anemia, abnormal labs. Renal insufficiency potentially dehydrated Abnormal LFTs alk phos elevated Urine noted significant bacteria likely UTI etiology Wound stable still requiring local care IV antibiotics per infectious disease Discussed with special investigator Dr. Berkowitz air mattress turn q2h nutritional tf will follow with recs thank you CT noted pending VQ scan - noted poor study low prob PE work respiratory increasing needs sedation weaning vent settings 80% peep 10 now comfortable Hd line in receiving HD plan for left thora 09/26 cont weaning vent as tolerated (12) Chronic respiratory failure (13) Ascites (14) Bacteremia (15) Hypernatremia (16) Pleural effusion (17) Pacemaker (18) Aortic dissection, thoracic (19) Tracheostomy in place Assessment & Plan: trach stable no bleeding currently likely tongue etiology of mild oozing currently hemostatic without trauma (20) Feeding by G-tube Assessment & Plan: okay to resume tube feeds via g tube patent and functional dressings okay DAILY ESTIMATED NEEDS: Needs based on Pulmonary, wound 49kg 30-35 kcals/kg [id number] total kcals 1.25-2 g protein/kg 61-98 g total protein Fluid per MD NUTRITION DIAGNOSIS: * Swallowing difficulty R/T dysphagia, respiratory status as evidenced by vent dep via T-collar, GT Dep. (CURRENT TF: Nepro @45ml/hr x 24 hrs) ENTERAL NUTRITION RECOMMENDATIONS: Nepro @ 40ml/hr x 24 hrs to provide 960ml, 1728kcal, 78g prot, 698ml free water * Rec LOWER current rate to 40ml/hr for 24 hrs run. 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 Base of wound is granular with bone exposure at base of sacrococcygeal.(L)10.5cm x (W06.5cm x (D) 2.8cm , undermining 11-3 by 3.6cm @12 o'clock. small amt serosanguineous exudate noted . [employer] epithelial along edges bordered by darker skin tone without erythema. Resolving Pressure injury L ischium. Base of wound is 95% pink epithelial ,5% noni at center base of wound. No exudate noted. Both heels are boggy with non-Blanching erythema. Tx.plan: Cleanse Sacral wound with Saline. Loosely pack with Hydrogel impregnated Kerlix. Apply Moisture Barrier Periwound. Cover with Optifoam drsg Daily and prn. Apply Moisture Barrier paste to L Ischium. Cover with Optifoam drsg. Changee very 3 days and prn. Apply Cavilon Skin Barrier to both heels. Cover each heel with Optifoam drsgs. Change every 7 days and prn. Reposition at least every 2hours or as tolerated. Off-load heels with pillow. APM/JENNIFER Mattress overlay. Lane Saavedar Oct 11, 2019 13:20
[2019-10-11] MEDS: DAPTOmycin 250 MG in NS 55 ML IV SCH (17:37)
[2019-10-11] MEDS: Dyna-Hex 2% Top Sol 2oz TOPIC SCH (20:59)
[2019-10-11] MEDS ORDERED: Epoetin Alfa-EPBX(ESRD on dialysis)2000 units/ml vial SUBQ SCH (21:00)
[2019-10-11] MEDS ORDERED: Epoetin Alfa-EPBX(ESRD on dialysis)10,000 unit/ml vial SUBQ SCH (21:00)
[2019-10-11] MEDS: Miralax 17gm pkt ORAL SCH (21:00)
[2019-10-11] MEDS ORDERED: Epoetin Alfa-EPBX(ESRD on dialysis)3000 units/ml vial SUBQ SCH (21:00)
[2019-10-11] MEDS: Sertraline 100mg tab GT SCH (21:00)
--- NOTE | 2019-10-11 23:54 | Psych Consult Progress Note ---
Psychiatry Progress Note Psychiatry Progress Note Subjective the pt was calm dec agitation manageable with morphine and haldol off restraints Medications Current Medications Medications (Trade) Dose Ordered Sig/Penny Route PRN Reason Start Time Stop Time Status Last Admin Dose Admin Acetaminophen (Tylenol) 325 mg Q6H PRN GT Temp >100.5 10/11/19 04:45 10/23/19 10:44 Albuterol/ Ipratropium (Albuterol/ Ipratropium) 3 ml Q6HRT HHN 10/11/19 07:00 10/14/19 12:59 10/11/19 19:11 Ascorbic Acid (Vitamin C) 500 mg DAILY ORAL 10/11/19 09:00 11/05/19 08:59 10/11/19 08:16 Chlorhexidine Gluconate (Lnig-Hex 2%) 1 applic DAILY@2000 TOPIC 10/11/19 20:00 12/22/19 19:59 10/11/19 20:59 Clonidine HCl (Catapres TTS-3) 1 patch QWEEK TDERMAL 10/17/19 09:00 01/08/20 08:59 Daptomycin 250 mg/ Sodium Chloride 55 ml @ 100 mls/hr Q48H IV 10/11/19 16:00 10/16/19 15:59 10/11/19 17:37 Dextrose (Dextrose 50%) 25 ml Q30M PRN IV Hypoglycemia 10/11/19 04:30 01/03/20 18:29 Dextrose (Dextrose 50%) 50 ml Q30M PRN IV Hypoglycemia 10/11/19 04:30 01/03/20 18:29 Diltiazem HCl (Cardizem Tab) 90 mg Q6HR GT 10/11/19 06:00 11/09/19 11:59 10/11/19 23:31 Docusate Sodium (Colace) 100 mg Q8H GT 10/11/19 08:30 10/29/19 08:29 10/11/19 17:39 Epoetin Gelacio (Epoetin Gelacio(ESRD on dialysis)) 4,000 unit MON-MON-MON SUBQ 10/11/19 21:00 10/11/19 23:59 10/11/19 21:03 Epoetin Gelacio (Epoetin Gelacio(ESRD on dialysis)) 6,000 unit MON-MON-MON SUBQ 10/11/19 21:00 10/11/19 23:59 10/11/19 21:03 Epoetin Gelacio (Epoetin Gelacio(ESRD on dialysis)) 10,000 unit SUBQ 10/14/19 21:00 01/12/20 20:59 Haloperidol Lactate (Haldol) 5 mg Q6H PRN IM Agitation 10/11/19 05:00 11/22/19 10:59 10/11/19 12:34 Heparin Sodium (Porcine) (Heparin 5000 units/ml) 5,000 units EVERY 12 HOURS SUBQ 10/11/19 09:00 10/30/19 08:59 10/11/19 21:02 Insulin Aspart (NovoLOG) Q6HR SUBQ 10/11/19 06:00 01/03/20 20:59 Lansoprazole (Prevacid) 30 mg Q12HR GT 10/11/19 09:00 10/27/19 20:59 10/11/19 21:00 Lisinopril (PriniviL) 20 mg BID GT 10/11/19 09:00 11/08/19 17:59 10/11/19 17:40 Metoclopramide HCl (Reglan) 5 mg EVERY 6 HOURS GT 10/11/19 06:00 11/08/19 11:59 10/11/19 23:30 Metoprolol Tartrate (Lopressor) 25 mg Q12HR GT 10/11/19 09:00 01/07/20 20:59 10/11/19 21:00 Minoxidil (Loniten) 2.5 mg Q8HR ORAL 10/11/19 06:00 01/08/20 13:59 10/11/19 13:09 Morphine Sulfate (Morphine Sulfate) 2 mg Q4H PRN IVP For Pain 10/11/19 04:42 10/16/19 04:41 10/11/19 10:25 Polyethylene Glycol (Miralax) 17 gm BEDTIME ORAL 10/11/19 21:00 10/31/19 20:59 10/11/19 21:00 Risperidone (RisperDAL) 2 mg BEDTIME ORAL 10/11/19 21:00 11/19/19 20:59 10/11/19 21:00 Sertraline HCl (Zoloft) 100 mg BEDTIME GT 10/11/19 21:00 10/15/19 20:59 10/11/19 21:00 Sorbitol (sorbitoL) 30 ml EVERY 6 HOURS PRN GT Constipation 10/11/19 06:00 10/29/19 17:59 Vitamin B Complex/ Vit C/Folic Acid (Nephrovite) 1 tab DAILY ORAL 10/11/19 09:00 11/05/19 08:59 10/11/19 08:16 Zinc Sulfate (Zinc Sulfate) 220 mg DAILY ORAL 10/11/19 09:00 10/21/19 08:59 10/11/19 08:16 Neurological/Psychiatric: Reports: other - She is alert oriented and able to communicate Allergies: Coded Allergies: No Known Allergies (Unverified , 10/10/17) Objective Data Height (Feet): 5 Height (Inches): 5.00 Weight (Pounds): 146 General Appearance: no apparent distress Additional Comments: awake, disoriented. Mood is agitated. Affect is flat. Thought process is concrete. Thought content, no suicidal or homicidal ideation. Cognition is impaired. Insight and judgment are impaired. Assessment/Plan Shepherd I: ASSESSMENT: AXIS I: Acute encephalopathy. Schizophrenia. AXIS II: Deferred. AXIS III: As above. AXIS IV: Low. AXIS V: 20. PLAN: 1. We will start the patient on risperidone 2 mg at bedtime. 2. Haldol IM. The patient improved after 1 dose and restraints was stopped at nighttime. 3. Continue to follow and readjust the medications. Status: stable Status Narrative ASSESSMENT: AXIS I: Acute encephalopathy. Schizophrenia. AXIS II: Deferred. AXIS III: As above. AXIS IV: Low. AXIS V: 20. PLAN: 1. We will start the patient on risperidone 2 mg at bedtime. 2. Haldol IM. The patient improved after 1 dose and restraints was stopped at nighttime. 3. Continue to follow and readjust the medications. Assessment/Plan: ASSESSMENT: AXIS I: Acute encephalopathy. Schizophrenia. AXIS II: Deferred. AXIS III: As above. AXIS IV: Low. AXIS V: 20. PLAN: 1. We will start the patient on risperidone 2 mg at bedtime. 2. Haldol IM. The patient improved after 1 dose and restraints was stopped at nighttime. 3. Continue to follow and readjust the medications. Shanda Linares MD Oct 11, 2019 23:54
[2019-10-12] VITALS: BP 148/77
[2019-10-12] MEDS: Docusate 100mg/10ml Liq GT SCH ×4 (00:30→23:44)
[2019-10-12] MEDS: Albuterol/Ipratropium 3ml neb HHN SCH ×4 (00:32→19:08)
[2019-10-12 04:00] VITALS: BP 142/71
[2019-10-12 04:20] LABS: BASOPHILS % (AUTO) 0.9 % (0.0-2.0); EOSINOPHILS % (AUTO) 2.6 % (0.0-3.0); HEMATOCRIT 34.8 % (37.0-47.0); HEMOGLOBIN 11.3 G/DL (12.0-16.0); LYMPHOCYTES % (AUTO) 19.3 % (20.0-45.0); MEAN CORPUSCULAR VOLUME 93 FL (80-99); MONOCYTES % (AUTO) 5.4 % (1.0-10.0); NEUTROPHILS % (AUTO) 71.9 % (45.0-75.0); PLATELET COUNT 492 K/UL (150-450); RED BLOOD COUNT 3.76 M/UL (4.20-5.40); RED CELL DISTRIBUTION WIDTH 14.2 % (11.6-14.8); WHITE BLOOD COUNT 7.5 K/UL (4.8-10.8)
[2019-10-12 04:36] LABS: CREATINE KINASE 109 U/L (26-308)
[2019-10-12 04:46] LABS: ALANINE AMINOTRANSFERASE 14 U/L (12-78); ALBUMIN 1.8 G/DL (3.4-5.0); ALBUMIN/GLOBULIN RATIO 0.3 (1.0-2.7); ALKALINE PHOSPHATASE 181 U/L (46-116); ANION GAP 12 mmol/L (5-15); ASPARTATE AMINO TRANSFERASE 37 U/L (15-37); BILIRUBIN,TOTAL 0.3 MG/DL (0.2-1.0); BLOOD UREA NITROGEN 81 mg/dL (7-18); CALCIUM 9.7 MG/DL (8.5-10.1); CARBON DIOXIDE 23 MMOL/L (21-32); CHLORIDE 97 MMOL/L (98-107); CREATININE 2.8 MG/DL (0.55-1.30); PHOSPHORUS 4.3 MG/DL (2.5-4.9); POTASSIUM 3.4 MMOL/L (3.5-5.1); SODIUM 132 MMOL/L (136-145)
[2019-10-12] MEDS: NovoLOG Insulin Flexpen SUBQ SCH ×4 (05:31→23:45)
[2019-10-12] MEDS: Metoclopramide 10mg/10ml Liq GT SCH ×4 (05:31→23:44)
[2019-10-12] MEDS: dilTIAZem HCl 90mg tab GT SCH ×4 (05:32→23:44)
[2019-10-12] MEDS: Minoxidil 2.5mg tab ORAL SCH ×3 (05:32→21:36)
[2019-10-12 07:58] VITALS: BP 153/76
--- NOTE | 2019-10-12 07:59 | Infectious Diseases Prog Note ---
Assessment/Plan 49yo F with: Acute hypoxic resp failure: Now on vent, worsening, FiO2 100% > 80% 09/27 > 60% >40% 10/08 >30% 10/09 Pneumonia, COVID19 neg x3 - MDR PsA pneumonia,s pr x 10/07 CXR: Bilateral infiltrates versus edema, left greater than right pleural effusions are again demonstrated, unchanged. There is slightly better inspiration currently. 09/29 CXR: Bilateral edema versus infiltrates appears slightly worse than on the prior study. There is probably some pleural fluid on the left. 09/26 S/P thoracentesis, 900cc removed, only 67 WBC in fluid analysis, unlikely empyema 09/26 CXR: Worsening R perihilar opacity 09/26 BCx Neg 09/24 CXR: Previously demonstrated right lateral basilar lucency is no longer evident, was presumably a skin fold artifact. Bilateral infiltrates and left pleural effusion are probably unchanged allowing for slight differences in technique. 09/22 Resp cx + MDR PsA (S-gent; I-colistin; R-levofloxacin, Zosyn, angelo) 09/22 BCx NTD 09/22 CXR: worsening BL pna 09/22 UA w/ persistent pyuria, now on HD, UCx +VRE, most likely colonizer as improving wo tx for this 09/19 V/Q scan, low probability of PE 09/18 Rapid COVID PCR neg 09/18 CT chest: Markedly suboptimal examination due to lack of IV contrast material. Bilateral pleural effusions, right greater than left, with bilateral lower lobe consolidation or volume loss. Ground glass densities in the upper lobes bilaterally. This is not specific. Tracheostomy. Increased superior mediastinal density. Stability of adenopathy cannot be excluded. Atherosclerotic change. Gastrostomy. Ascites. Left renal stent with left hydronephrosis and renal atrophy. 09/17 Chest US: Trace right and small left pleural effusions. No safe window identified for bedside thoracentesis. Note that the majority of the left pleural effusion is subpulmonic. 09/16 CXR: Worsening of right lung infiltrates and right effusion. V. duplex: NO DVT D-dimer elevated 09/15 Rapid COVID PCR neg 09/15 Sp cx ESBL P. mirablis 09/14 CXR: Bilateral airspace opacities, preferentially involving the right lung, consistent with multifocal infiltrate. Trace bilateral pleural effusions. No pneumothorax. Rapid COVID PCR neg Urine legionella neg 09/16 GPC bacteremia, real vs contaminant; does have hx of infected PPM- 09/14 Bcx 2/ S. epidermis; 09/15, , Bcx Neg 2d echo: no vegetations seen UTI, sp rx 8/2 u/a wbc tnct, nit neg, leuk +3; ucx >100k MDR P. stuarti (S Ceftriaxone, Meropenem) 09/22 UA w/ ongoing pyuria, unchanged 10/07 u/a wbc tnct, nit neg, leuk ; ucx >100k alphahemolytic strep Unstageable sacral ulceration Afebrile Leukocytosis, mild; fluctuates bt -- SP JAVIER on CKD --> now on HD Renal US: Limited exam due to abdominal ascites and shadowing from bowel gas. CT recommended for more sensitive evaluation. Moderate right hydronephrosis. Increased renal parenchymal echogenicity suggesting intrinsic/ medical renal disease. Question indwelling left ureteral stent versus artifact. Bladder not visualized. 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 epi-11/2018, sp > 6weeks IV vancomycin 11/27 SP ABBIE: no evidence for vegetation on any of the valves 11/26/18 SP PPM removal: OR findings:The fibrous capsule enclosing the generator was then opened and there was a [id number] amount of yellowish fluid drainage. The generator was then removed.Atrial and ventricular leads were detached. The necrotic tissue of the pocket was then removed and the pocket was flushed with an antibiotic solution. Capsule, wound tissue and lead tip cx: Neg 2d echo: no vegetation seen US chest: 4.6 x 3.4 x 0.9 cm hypoechoic/anechoic area overlying left chest pacemaker power pack. This could represent either a discrete fluid collection or a focal area of very edematous tissue. Infected fluid pocket also possible. 11/18 Bcx 3/4 S. epi; 11/20 Bcx neg; 11/24 Bcx Neg; 11/27 Bcx Neg Hx of PNA 11/2019? sp cx PsA (arnett S), ABC (I Ceftriaxone; otherwise negative) Sp cx MRSA, ABC (I Ceftriaxone; otherwise S) PMH: Afib HTN Dysphagia sp GT Aortic dissection s/p repair 2017, S/p PPM Parkinson's Disease Schizophrenia Anxiety COPD Chronic resp failure s/p trach Hx of tracheal bleeding [facility] resident ([facility]) Plan: Start IV Daptomycin #2/5 for UTI -monitor CPK 10/03 SP Zerbaxa #6, gent #7 for MDR PsA pna 09/29 SP vanco #15 for S.epi in BCx 09/27 SP angelo #13 8/ SP Cefepime #3, Levaquin #3 Monitor CBC/CMP, temperatures trach/ peg care Aspiration precautions D/w RN Thank you for this consultation. Will continue to follow along with you. Subjective Allergies: Coded Allergies: No Known Allergies (Unverified , 10/10/17) AF WBC 7 NAD on vent, Fi02 45%, PEEP 5 Objective Last 24 Hour Vital Signs Date Time Temp Pulse Resp B/P (MAP) Pulse Ox O2 Delivery O2 Flow Rate FiO2 10/12/19 05:32 154/78 10/12/19 05:32 68 154/78 10/12/19 05:23 66 22 45 10/12/19 04:00 45 10/12/19 04:00 Mechanical Ventilator Mechanical Ventilator Mechanical Ventilator 10/12/19 04:00 98.1 66 20 142/71 (94) 97 10/12/19 03:30 66 10/12/19 03:03 68 22 45 10/12/19 00:32 70 22 97 Mechanical Ventilator 45 71 20 45 10/12/19 00:00 Mechanical Ventilator Mechanical Ventilator Mechanical Ventilator 10/12/19 00:00 98.1 70 20 148/77 (100) 96 10/12/19 00:00 45 10/11/19 23:47 73 10/11/19 23:31 73 148/77 10/11/19 23:30 72 28 45 10/11/19 22:00 151/77 10/11/19 21:00 85 170/75 10/11/19 20:38 72 26 45 10/11/19 20:30 45 10/11/19 20:00 35 10/11/19 20:00 98.2 75 20 170/75 (106) 92 10/11/19 20:00 Mechanical Ventilator Mechanical Ventilator Mechanical Ventilator 10/11/19 19:57 68 10/11/19 19:12 66 24 97 Mechanical Ventilator 35 68 20 35 10/11/19 17:41 67 140/71 10/11/19 17:40 140/71 10/11/19 17:20 71 19 35 10/11/19 16:00 35 10/11/19 16:00 Mechanical Ventilator 15.0 Mechanical Ventilator Mechanical Ventilator 10/11/19 16:00 96.8 77 25 142/71 (94) 96 10/11/19 16:00 67 10/11/19 15:01 69 25 35 10/11/19 13:35 35 10/11/19 13:31 94 10/11/19 13:21 66 48 35 35 10/11/19 13:14 67 25 94 Mechanical Ventilator 35 67 24 35 10/11/19 13:09 172/79 10/11/19 12:00 30 10/11/19 12:00 Mechanical Ventilator Mechanical Ventilator 10/11/19 12:00 68 10/11/19 12:00 97.7 73 25 176/73 (107) 92 10/11/19 11:55 79 156/80 10/11/19 11:00 69 25 30 10/11/19 09:00 71 29 40 10/11/19 08:16 66 138/64 10/11/19 08:16 138/64 10/11/19 08:00 Mechanical Ventilator Mechanical Ventilator 10/11/19 08:00 30 10/11/19 08:00 98.1 66 25 138/64 (88) 99 10/11/19 08:00 74 Height (Feet): 5 Height (Inches): 5.00 Weight (Pounds): 140 Gen: Older woman, on vent CV: RRR Pulm: CTAB anteriorly on vent Abd: Soft, non-distended Ext: No c/c Neuro: Minimally interactive Laboratory Tests Test 10/11/19 11:39 10/11/19 17:03 10/11/19 17:36 10/11/19 23:15 POC Whole Blood Glucose Pending Pending Pending 109 MG/DL (74-106) H Test 10/12/19 02:40 10/12/19 05:25 White Blood Count 7.5 K/UL (4.8-10.8) Red Blood Count 3.76 M/UL (4.20-5.40) L Hemoglobin 11.3 G/DL (12.0-16.0) L Hematocrit 34.8 % (37.0-47.0) L Mean Corpuscular Volume 93 FL (80-99) Mean Corpuscular Hemoglobin 30.1 PG (27.0-31.0) Mean Corpuscular Hemoglobin Concent 32.5 G/DL (32.0-36.0) Red Cell Distribution Width 14.2 % (11.6-14.8) Platelet Count 492 K/UL (150-450) H Mean Platelet Volume 5.3 FL (6.5-10.1) L Neutrophils (%) (Auto) 71.9 % (45.0-75.0) Lymphocytes (%) (Auto) 19.3 % (20.0-45.0) L Monocytes (%) (Auto) 5.4 % (1.0-10.0) Eosinophils (%) (Auto) 2.6 % (0.0-3.0) Basophils (%) (Auto) 0.9 % (0.0-2.0) Sodium Level 132 MMOL/L (136-145) L Potassium Level 3.4 MMOL/L (3.5-5.1) L Chloride Level 97 MMOL/L (98-107) L Carbon Dioxide Level 23 MMOL/L (21-32) Anion Gap 12 mmol/L (5-15) Blood Urea Nitrogen 81 mg/dL (7-18) H Creatinine 2.8 MG/DL (0.55-1.30) H Estimat Glomerular Filtration Rate 18.1 mL/min (>60) Glucose Level 122 MG/DL (74-106) H Calcium Level 9.7 MG/DL (8.5-10.1) Phosphorus Level 4.3 MG/DL (2.5-4.9) Total Bilirubin 0.3 MG/DL (0.2-1.0) Aspartate Amino Transf (AST/SGOT) 37 U/L (15-37) Alanine Aminotransferase (ALT/SGPT) 14 U/L (12-78) Alkaline Phosphatase 181 U/L (46-116) H Total Creatine Kinase 109 U/L (26-308) C-Reactive Protein, Quantitative 6.4 mg/dL (0.00-0.90) H Pro-B-Type Natriuretic Peptide > 79303 pg/mL (0-125) H Total Protein 7.0 G/DL (6.4-8.2) Albumin 1.8 G/DL (3.4-5.0) L Globulin 5.2 g/dL Albumin/Globulin Ratio 0.3 (1.0-2.7) L POC Whole Blood Glucose 114 MG/DL (74-106) H Current Medications Medications (Trade) Dose Ordered Sig/Penny Route PRN Reason Start Time Stop Time Status Last Admin Dose Admin Acetaminophen (Tylenol) 325 mg Q6H PRN GT Temp >100.5 10/11/19 04:45 10/23/19 10:44 Albuterol/ Ipratropium (Albuterol/ Ipratropium) 3 ml Q6HRT HHN 10/11/19 07:00 10/14/19 12:59 10/12/19 00:32 Ascorbic Acid (Vitamin C) 500 mg DAILY ORAL 10/11/19 09:00 11/05/19 08:59 10/11/19 08:16 Chlorhexidine Gluconate (Ling-Hex 2%) 1 applic DAILY@2000 TOPIC 10/11/19 20:00 12/22/19 19:59 10/11/19 20:59 Clonidine HCl (Catapres TTS-3) 1 patch QWEEK TDERMAL 10/17/19 09:00 01/08/20 08:59 Daptomycin 250 mg/ Sodium Chloride 55 ml @ 100 mls/hr Q48H IV 10/11/19 16:00 10/16/19 15:59 10/11/19 17:37 Dextrose (Dextrose 50%) 25 ml Q30M PRN IV Hypoglycemia 10/11/19 04:30 01/03/20 18:29 Dextrose (Dextrose 50%) 50 ml Q30M PRN IV Hypoglycemia 10/11/19 04:30 01/03/20 18:29 Diltiazem HCl (Cardizem Tab) 90 mg Q6HR GT 10/11/19 06:00 11/09/19 11:59 10/12/19 05:32 Docusate Sodium (Colace) 100 mg Q8H GT 10/11/19 08:30 10/29/19 08:29 10/11/19 17:39 Epoetin Gelacio (Epoetin Gelacio(ESRD on dialysis)) 10,000 unit MON-MON-MON SUBQ 10/14/19 21:00 01/12/20 20:59 Haloperidol Lactate (Haldol) 5 mg Q6H PRN IM Agitation 10/11/19 05:00 11/22/19 10:59 10/11/19 12:34 Heparin Sodium (Porcine) (Heparin 5000 units/ml) 5,000 units EVERY 12 HOURS SUBQ 10/11/19 09:00 10/30/19 08:59 10/11/19 21:02 Insulin Aspart (NovoLOG) Q6HR SUBQ 10/11/19 06:00 01/03/20 20:59 Lansoprazole (Prevacid) 30 mg Q12HR GT 10/11/19 09:00 10/27/19 20:59 10/11/19 21:00 Lisinopril (PriniviL) 20 mg BID GT 10/11/19 09:00 11/08/19 17:59 10/11/19 17:40 Metoclopramide HCl (Reglan) 5 mg EVERY 6 HOURS GT 10/11/19 06:00 11/08/19 11:59 10/12/19 05:31 Metoprolol Tartrate (Lopressor) 25 mg Q12HR GT 10/11/19 09:00 01/07/20 20:59 10/11/19 21:00 Minoxidil (Loniten) 2.5 mg Q8HR ORAL 10/11/19 06:00 01/08/20 13:59 10/11/19 13:09 Morphine Sulfate (Morphine Sulfate) 2 mg Q4H PRN IVP For Pain 10/11/19 04:42 10/16/19 04:41 10/11/19 10:25 Polyethylene Glycol (Miralax) 17 gm BEDTIME ORAL 10/11/19 21:00 10/31/19 20:59 10/11/19 21:00 Risperidone (RisperDAL) 2 mg BEDTIME ORAL 10/11/19 21:00 11/19/19 20:59 10/11/19 21:00 Sertraline HCl (Zoloft) 100 mg BEDTIME GT 10/11/19 21:00 10/15/19 20:59 10/11/19 21:00 Sorbitol (sorbitoL) 30 ml EVERY 6 HOURS PRN GT Constipation 10/11/19 06:00 10/29/19 17:59 Vitamin B Complex/ Vit C/Folic Acid (Nephrovite) 1 tab DAILY ORAL 10/11/19 09:00 11/05/19 08:59 10/11/19 08:16 Zinc Sulfate (Zinc Sulfate) 220 mg DAILY ORAL 10/11/19 09:00 10/21/19 08:59 10/11/19 08:16 Ro Pack M.D. Oct 12, 2019 07:59
[2019-10-12] MEDS: Zinc Sulfate 220mg ORAL SCH (08:26)
[2019-10-12] MEDS: Ascorbic Acid 500mg tab ORAL SCH (08:26)
[2019-10-12] MEDS: Lisinopril 20mg tab GT SCH ×2 (08:26→17:10)
[2019-10-12] MEDS: Nephrovite tab (Rena-Vite) ORAL SCH (08:26)
[2019-10-12] MEDS: Heparin 5000 units/ml inj SUBQ SCH ×2 (08:29→20:18)
--- NOTE | 2019-10-12 09:11 | Surgery Progress Note ---
Surgery Progress Note Subjective Additional Comments no acute events comfortable stable no n/v//fc labs noted Objective Last 24 Hour Vital Signs Date Time Temp Pulse Resp B/P (MAP) Pulse Ox O2 Delivery O2 Flow Rate FiO2 10/12/19 08:26 66 153/76 10/12/19 08:26 153/76 10/12/19 08:00 45 10/12/19 07:58 98.9 66 24 153/76 (101) 98 10/12/19 07:11 65 21 98 Mechanical Ventilator 45 78 21 45 10/12/19 05:32 154/78 10/12/19 05:32 68 154/78 10/12/19 05:23 66 22 45 10/12/19 04:00 45 10/12/19 04:00 Mechanical Ventilator Mechanical Ventilator Mechanical Ventilator 10/12/19 04:00 98.1 66 20 142/71 (94) 97 10/12/19 03:30 66 10/12/19 03:03 68 22 45 10/12/19 00:32 70 22 97 Mechanical Ventilator 45 71 20 45 10/12/19 00:00 Mechanical Ventilator Mechanical Ventilator Mechanical Ventilator 10/12/19 00:00 98.1 70 20 148/77 (100) 96 10/12/19 00:00 45 10/11/19 23:47 73 10/11/19 23:31 73 148/77 10/11/19 23:30 72 28 45 10/11/19 22:00 151/77 10/11/19 21:00 85 170/75 10/11/19 20:38 72 26 45 10/11/19 20:30 45 10/11/19 20:00 35 10/11/19 20:00 98.2 75 20 170/75 (106) 92 10/11/19 20:00 Mechanical Ventilator Mechanical Ventilator Mechanical Ventilator 10/11/19 19:57 68 10/11/19 19:12 66 24 97 Mechanical Ventilator 35 68 20 35 10/11/19 17:41 67 140/71 10/11/19 17:40 140/71 10/11/19 17:20 71 19 35 10/11/19 16:00 35 10/11/19 16:00 Mechanical Ventilator 15.0 Mechanical Ventilator Mechanical Ventilator 10/11/19 16:00 96.8 77 25 142/71 (94) 96 8/28/20 16:00 67 10/11/19 15:01 69 25 35 10/11/19 13:35 35 10/11/19 13:31 94 10/11/19 13:21 66 48 35 35 10/11/19 13:14 67 25 94 Mechanical Ventilator 35 67 24 35 10/11/19 13:09 172/79 10/11/19 12:00 30 10/11/19 12:00 Mechanical Ventilator Mechanical Ventilator 10/11/19 12:00 68 10/11/19 12:00 97.7 73 25 176/73 (107) 92 10/11/19 11:55 79 156/80 10/11/19 11:00 69 25 30 I&O Intake and Output 10/11/19 10/12/19 19:00 07:00 Intake Total 840 ml 690 ml Output Total 500 ml 380 ml Balance 340 ml 310 ml Intake Free Water 200 ml Tube Feeding 520 ml 440 ml Other 120 ml 250 ml Output Urine Total 500 ml 380 ml # Bowel Movements 2 Dressing: saturated Cardiovascular: RSR Respiratory: decreased breath sounds Abdomen: soft, non-tender, present bowel sounds Extremities: no edema, no tenderness, no cyanosis Laboratory Tests Test 10/11/19 11:39 10/11/19 17:03 10/11/19 17:36 10/11/19 23:15 POC Whole Blood Glucose Pending Pending Pending 109 MG/DL (74-106) H Test 10/12/19 02:40 10/12/19 05:25 White Blood Count 7.5 K/UL (4.8-10.8) Red Blood Count 3.76 M/UL (4.20-5.40) L Hemoglobin 11.3 G/DL (12.0-16.0) L Hematocrit 34.8 % (37.0-47.0) L Mean Corpuscular Volume 93 FL (80-99) Mean Corpuscular Hemoglobin 30.1 PG (27.0-31.0) Mean Corpuscular Hemoglobin Concent 32.5 G/DL (32.0-36.0) Red Cell Distribution Width 14.2 % (11.6-14.8) Platelet Count 492 K/UL (150-450) H Mean Platelet Volume 5.3 FL (6.5-10.1) L Neutrophils (%) (Auto) 71.9 % (45.0-75.0) Lymphocytes (%) (Auto) 19.3 % (20.0-45.0) L Monocytes (%) (Auto) 5.4 % (1.0-10.0) Eosinophils (%) (Auto) 2.6 % (0.0-3.0) Basophils (%) (Auto) 0.9 % (0.0-2.0) Sodium Level 132 MMOL/L (136-145) L Potassium Level 3.4 MMOL/L (3.5-5.1) L Chloride Level 97 MMOL/L (98-107) L Carbon Dioxide Level 23 MMOL/L (21-32) Anion Gap 12 mmol/L (5-15) Blood Urea Nitrogen 81 mg/dL (7-18) H Creatinine 2.8 MG/DL (0.55-1.30) H Estimat Glomerular Filtration Rate 18.1 mL/min (>60) Glucose Level 122 MG/DL (74-106) H Calcium Level 9.7 MG/DL (8.5-10.1) Phosphorus Level 4.3 MG/DL (2.5-4.9) Total Bilirubin 0.3 MG/DL (0.2-1.0) Aspartate Amino Transf (AST/SGOT) 37 U/L (15-37) Alanine Aminotransferase (ALT/SGPT) 14 U/L (12-78) Alkaline Phosphatase 181 U/L (46-116) H Total Creatine Kinase 109 U/L (26-308) C-Reactive Protein, Quantitative 6.4 mg/dL (0.00-0.90) H Pro-B-Type Natriuretic Peptide > 88425 pg/mL (0-125) H Total Protein 7.0 G/DL (6.4-8.2) Albumin 1.8 G/DL (3.4-5.0) L Globulin 5.2 g/dL Albumin/Globulin Ratio 0.3 (1.0-2.7) L POC Whole Blood Glucose 114 MG/DL (74-106) H Plan Problems: (1) Anemia (2) Proteinuria (3) UTI (urinary tract infection) (4) ARF (acute renal failure) (5) ACS (acute coronary syndrome) (6) Respiratory failure, acute and chronic (7) HCAP (healthcare-associated pneumonia) (8) Abrasion of lip, initial encounter (9) COPD with exacerbation (10) Hypokalemia (11) Sepsis Assessment & Plan: Leukocytosis, anemia, abnormal labs. 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 Berkowitz air mattress turn q2h nutritional tf will follow with recs thank you CT noted pending VQ scan - noted poor study low prob PE work respiratory increasing needs sedation weaning vent settings 80% peep 10 now comfortable Hd line in receiving HD plan for left thora 09/26 cont weaning vent as tolerated (12) Chronic respiratory failure (13) Ascites (14) Bacteremia (15) Hypernatremia (16) Pleural effusion (17) Pacemaker (18) Aortic dissection, thoracic (19) Tracheostomy in place Assessment & Plan: trach stable no bleeding currently likely tongue etiology of mild oozing currently hemostatic without trauma (20) Feeding by G-tube Assessment & Plan: okay to resume tube feeds via g tube patent and functional dressings okay DAILY ESTIMATED NEEDS: Needs based on Pulmonary, wound 49kg 30-35 kcals/kg 9026-9023 total kcals 1.25-2 g protein/kg 61-98 g total protein Fluid per MD NUTRITION DIAGNOSIS: * Swallowing difficulty R/T dysphagia, respiratory status as evidenced by vent dep via T-collar, GT Dep. (CURRENT TF: Nepro @45ml/hr x 24 hrs) ENTERAL NUTRITION RECOMMENDATIONS: Nepro @ 40ml/hr x 24 hrs to provide 960ml, 1728kcal, 78g prot, 698ml free water * Rec LOWER current rate to 40ml/hr for 24 hrs run. 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 Base of wound is granular with bone exposure at base of sacrococcygeal.(L)10.5cm x (W06.5cm x (D) 2.8cm , undermining 11-3 by 3.6cm @12 o'clock. small amt serosanguineous exudate noted . [place] epithelial along edges bordered by darker skin tone without erythema. Resolving Pressure injury L ischium. Base of wound is 95% pink epithelial ,5% noni at center base of wound. No exudate noted. Both heels are boggy with non-Blanching erythema. Tx.plan: Cleanse Sacral wound with Saline. Loosely pack with Hydrogel impregnated Kerlix. Apply Moisture Barrier Periwound. Cover with Optifoam drsg Daily and prn. Apply Moisture Barrier paste to L Ischium. Cover with Optifoam drsg. Changee very 3 days and prn. Apply Cavilon Skin Barrier to both heels. Cover each heel with Optifoam drsgs. Change every 7 days and prn. Reposition at least every 2hours or as tolerated. Off-load heels with pillow. APM/MAXWELL Mattress overlay. Sacral wound resolving. Wound is smaller in size with less depth and undermining (L)8.5cm x (W)5cm x (D)1.3cm, undermining clockwise 11-3 by 2.1cm @ 12o'clock. Base of wound is pink and moist, small area of bone exposure at base. Small amt. seropurulent exudate noted. No odor noted. Periwound without evidence of further skin breakdown noted. Wound Tx. are effective and continued as ordered. Al wound prevention protocols continued as care-planned. Tx.Plan:Cleanse sacral wound with Saline. Loosely pack with Hydrogel impregnated kerlix. Apply Moisture Barrier Paste periwound. Cover with Optifoam drsg Daily and prn. Apply Cavilon Skin Barrier to both heels and malleoli. Cover eachsite with Optifoam drsgs. Change every 7 days and prn. Reposition at least every 2hours or as tolerated. Off-load heels with pillow. APM/Maxwell Mattress overlay. Lane Saavedra Oct 12, 2019 09:11
--- NOTE | 2019-10-12 09:38 | Pulmonology Progress Note ---
Yara Castro [employer] 10/12/19 0938: Subjective ROS Limited/Unobtainable: Yes Allergies: Coded Allergies: No Known Allergies (Unverified , 10/10/17) Subjective in [place] now on vent AC with FiO2 45% no signs of resp distress on current settings remains afebrile, no leucocytosis however during the first trail on CPAP 10/10 went to resp distress and [alced back to current vent settings much less anxiety, resting calm in the bed on the questions "How are you?" calmly nodding her head Objective Last 24 Hour Vital Signs Date Time Temp Pulse Resp B/P (MAP) Pulse Ox O2 Delivery O2 Flow Rate FiO2 10/12/19 08:59 67 22 45 10/12/19 08:26 66 153/76 10/12/19 08:26 153/76 10/12/19 08:00 45 10/12/19 08:00 Mechanical Ventilator Mechanical Ventilator Mechanical Ventilator 10/12/19 07:58 98.9 66 24 153/76 (101) 98 10/12/19 07:11 65 21 98 Mechanical Ventilator 45 78 21 45 10/12/19 05:32 154/78 10/12/19 05:32 68 154/78 10/12/19 05:23 66 22 45 10/12/19 04:00 45 10/12/19 04:00 Mechanical Ventilator Mechanical Ventilator Mechanical Ventilator 10/12/19 04:00 98.1 66 20 142/71 (94) 97 10/12/19 03:30 66 10/12/19 03:03 68 22 45 10/12/19 00:32 70 22 97 Mechanical Ventilator 45 71 20 45 10/12/19 00:00 Mechanical Ventilator Mechanical Ventilator Mechanical Ventilator 10/12/19 00:00 98.1 70 20 148/77 (100) 96 10/12/19 00:00 45 10/11/19 23:47 73 10/11/19 23:31 73 148/77 10/11/19 23:30 72 28 45 10/11/19 22:00 151/77 10/11/19 21:00 85 170/75 10/11/19 20:38 72 26 45 10/11/19 20:30 45 10/11/19 20:00 35 10/11/19 20:00 98.2 75 20 170/75 (106) 92 10/11/19 20:00 Mechanical Ventilator Mechanical Ventilator Mechanical Ventilator 10/11/19 19:57 68 10/11/19 19:12 66 24 97 Mechanical Ventilator 35 68 20 35 10/11/19 17:41 67 140/71 10/11/19 17:40 140/71 10/11/19 17:20 71 19 35 10/11/19 16:00 35 10/11/19 16:00 Mechanical Ventilator 15.0 Mechanical Ventilator Mechanical Ventilator 10/11/19 16:00 96.8 77 25 142/71 (94) 96 10/11/19 16:00 67 10/11/19 15:01 69 25 35 10/11/19 13:35 35 10/11/19 13:31 94 10/11/19 13:21 66 48 35 35 10/11/19 13:14 67 25 94 Mechanical Ventilator 35 67 24 35 10/11/19 13:09 172/79 10/11/19 12:00 30 10/11/19 12:00 Mechanical Ventilator Mechanical Ventilator 10/11/19 12:00 68 10/11/19 12:00 97.7 73 25 176/73 (107) 92 10/11/19 11:55 79 156/80 10/11/19 11:00 69 25 30 Intake and Output 10/11/19 10/12/19 19:00 07:00 Intake Total 840 ml 690 ml Output Total 500 ml 380 ml Balance 340 ml 310 ml Intake Free Water 200 ml Tube Feeding 520 ml 440 ml Other 120 ml 250 ml Output Urine Total 500 ml 380 ml # Bowel Movements 2 Objective General Appearance: no apparent distress, bedridden middle age chronically ill looking female on vent AC 500-20- 45%, PEEP 5, awake, calm Lines, tubes and drains: left jugular HD catheter HEENT: normocephalic, atraumatic, anicteric, trach - Shiley #7 cuffed XLT, secretions small amount, yellow color , thick consistency Respiratory/Chest: no accessory muscle use, few isolated rhonchi Cardiovascular/Chest: normal rate, regular rhythm - SR on tele Abdomen: normal bowel sounds, non tender, soft, G tube Genitourinary/Rectal: Norman Extremities: no edema Skin Exam: warm/dry, multiple tattoos all over the body Neurologic: awake, no gross focal Musculoskeletal: atrophy - BLE Laboratory Tests 10/11/19 11:39: POC Whole Blood Glucose [Pending] 10/11/19 17:03: POC Whole Blood Glucose [Pending] 10/11/19 17:36: POC Whole Blood Glucose [Pending] 10/11/19 23:15: POC Whole Blood Glucose 109H 10/12/19 02:40: White Blood Count 7.5, Red Blood Count 3.76L, Hemoglobin 11.3L, Hematocrit 34.8L , Mean Corpuscular Volume 93, Mean Corpuscular Hemoglobin 30.1, Mean Corpuscular Hemoglobin Concent 32.5, Red Cell Distribution Width 14.2, Platelet Count 492H, Mean Platelet Volume 5.3L, Neutrophils (%) (Auto) 71.9, Lymphocytes (%) (Auto) 19.3L, Monocytes (%) (Auto) 5.4, Eosinophils (%) (Auto) 2.6, Basophils (%) (Auto) 0.9, Sodium Level 132L, Potassium Level 3.4L, Chloride Level 97L, Carbon Dioxide Level 23, Anion Gap 12, Blood Urea Nitrogen 81H, Creatinine 2.8H, Estimat Glomerular Filtration Rate 18.1, Glucose Level 122H, Calcium Level 9.7, Phosphorus Level 4.3, Total Bilirubin 0.3, Aspartate Amino Transf (AST/SGOT) 37, Alanine Aminotransferase (ALT/SGPT) 14, Alkaline Phosphatase 181H, Total Creatine Kinase 109, C-Reactive Protein, Quantitative 6.4H, Pro-B-Type Natriuretic Peptide > 33151H, Total Protein 7.0, Albumin 1.8L, Globulin 5.2, Albumin/Globulin Ratio 0.3L 10/12/19 05:25: POC Whole Blood Glucose 114H Current Medications Medications (Trade) Dose Ordered Sig/Penny Route PRN Reason Start Time Stop Time Status Last Admin Dose Admin Acetaminophen (Tylenol) 325 mg Q6H PRN GT Temp >100.5 10/11/19 04:45 10/23/19 10:44 Albuterol/ Ipratropium (Albuterol/ Ipratropium) 3 ml Q6HRT HHN 10/11/19 07:00 10/14/19 12:59 10/12/19 08:24 Ascorbic Acid (Vitamin C) 500 mg DAILY ORAL 10/11/19 09:00 9/22/20 08:59 10/12/19 08:26 Chlorhexidine Gluconate (Ling-Hex 2%) 1 applic DAILY@2000 TOPIC 10/11/19 20:00 12/22/19 19:59 10/11/19 20:59 Clonidine HCl (Catapres TTS-3) 1 patch QWEEK TDERMAL 10/17/19 09:00 01/08/20 08:59 Daptomycin 250 mg/ Sodium Chloride 55 ml @ 100 mls/hr Q48H IV 10/11/19 16:00 10/16/19 15:59 10/11/19 17:37 Dextrose (Dextrose 50%) 25 ml Q30M PRN IV Hypoglycemia 10/11/19 04:30 01/03/20 18:29 Dextrose (Dextrose 50%) 50 ml Q30M PRN IV Hypoglycemia 10/11/19 04:30 01/03/20 18:29 Diltiazem HCl (Cardizem Tab) 90 mg Q6HR GT 10/11/19 06:00 11/09/19 11:59 10/12/19 05:32 Docusate Sodium (Colace) 100 mg Q8H GT 10/11/19 08:30 10/29/19 08:29 10/12/19 08:26 Epoetin Gelacio (Epoetin Gelacio(ESRD on dialysis)) 10,000 unit MON-MON-MON SUBQ 10/14/19 21:00 01/12/20 20:59 Haloperidol Lactate (Haldol) 5 mg Q6H PRN IM Agitation 10/11/19 05:00 11/22/19 10:59 10/11/19 12:34 Heparin Sodium (Porcine) (Heparin 5000 units/ml) 5,000 units EVERY 12 HOURS SUBQ 10/11/19 09:00 10/30/19 08:59 10/12/19 08:29 Insulin Aspart (NovoLOG) Q6HR SUBQ 10/11/19 06:00 01/03/20 20:59 Lansoprazole (Prevacid) 30 mg Q12HR GT 10/11/19 09:00 10/27/19 20:59 10/12/19 08:26 Lisinopril (PriniviL) 20 mg BID GT 10/11/19 09:00 11/08/19 17:59 10/12/19 08:26 Metoclopramide HCl (Reglan) 5 mg EVERY 6 HOURS GT 10/11/19 06:00 11/08/19 11:59 10/12/19 05:31 Metoprolol Tartrate (Lopressor) 25 mg Q12HR GT 10/11/19 09:00 01/07/20 20:59 10/12/19 08:26 Minoxidil (Loniten) 2.5 mg Q8HR ORAL 10/11/19 06:00 01/08/20 13:59 10/11/19 13:09 Morphine Sulfate (Morphine Sulfate) 2 mg Q4H PRN IVP For Pain 10/11/19 04:42 10/16/19 04:41 10/11/19 10:25 Polyethylene Glycol (Miralax) 17 gm BEDTIME ORAL 10/11/19 21:00 10/31/19 20:59 10/11/19 21:00 Risperidone (RisperDAL) 2 mg BEDTIME ORAL 10/11/19 21:00 11/19/19 20:59 10/11/19 21:00 Sertraline HCl (Zoloft) 100 mg BEDTIME GT 10/11/19 21:00 10/15/19 20:59 10/11/19 21:00 Sorbitol (sorbitoL) 30 ml EVERY 6 HOURS PRN GT Constipation 10/11/19 06:00 10/29/19 17:59 Vitamin B Complex/ Vit C/Folic Acid (Nephrovite) 1 tab DAILY ORAL 10/11/19 09:00 11/05/19 08:59 10/12/19 08:26 Zinc Sulfate (Zinc Sulfate) 220 mg DAILY ORAL 10/11/19 09:00 10/21/19 08:59 10/12/19 08:26 Assessment/Plan Assessment/Plan ASSESSMENT Acute on chronic hypoxemic respiratory failure ( trach dependent), now on vent Tracheostomy status, s/p change to cuffed trach Sepsis Pulmonary edema Pleural effusion -worsening left pl effusion s/p thoracentesis L pleural effusion 09/26 -900 ml Pneumonia with MDR Pseudomonas UTI CHF ? cardiorenal COPD Acute kidney injury and chronic kidney disease-requiring start of HD Hypertension Atrial fibrillation Moderate pulm HTN Moderate AR Dysphagia , feeding by G-tube Electrolyte abnormalities Anemia Toxic metabolic encephalopathy likely due to sepsis and ARF HTN PAF PLAN OF CARE now in [place] on vent AC trach changed 8/4 pm from uncuffed to cuffed Shiley#[address] chest w/out contrast: - Bilateral pleural effusions, right greater than left, with bilateral lower lobe consolidation or volume loss. -Ground-glass densities in the upper lobes bilaterally. This is not specific. -Tracheostomy. -Increased superior mediastinal density. Stability of adenopathy cannot be excluded. -Atherosclerotic change. -Gastrostomy. -Ascites. -Left renal stent with left hydronephrosis and renal atrophy. VQ scan -> low probability for PE worsening resp status was due to need for HD, now after HD started, resp status improving, down to PEEP 5 and AC 20 trach care , pulmonary toilet Mucomyst was prior dc given lots of thin secretions, continue Duoneb prn rapid COVID 19 NGT x3 now off Fentanyl gtt since 10/09 FiO2 down to 45% last ABG stable 10/09 not tolerated CPAP trials 10/10 - went to resp distress continue CPAP trials as tolerated, discussed with RN s/p thoracentesis L pleural effusion 09/26 am -> 900 ml fluid analysis noted, unlikely empyema given small # of WBC fup with fluid cx ( apparently never sent despite orders) cytology -> NGT, no malignant cells aspiration precautions venous Duplex BLE -> NGT DVT prophylaxis pulm toilet, BP elevated BP regimen optimized as per nephro monitor volumes was on gentle IVF-> dc s/p prior diuretic-Lasix require initiation of HD continue further HD as per nephro with close monitoring of volumes, renal parameters and lytes -per nephro recs abx as per ID- s/p gent x 1, now on Vanco and Zerbaxa , completed 10/02 SCX 09/15 + Proteus, SCX 09/22 Pseudomonas MDR UCX 09/14 + Providencia , UCX 09/22 VRE - K only BCX 09/14 Staph epidermidis, BCX 09/15 NGT , BCX 09/22 and 09/26 - NGTD UCX 10/07 + VRE, Laura- per ID started on Dapto 10/10- ECHO with pEF , moderate pulm HTN and moderate AR BP management with current regimen of BB, Cardizem and Hydralazine, remains in SR monitor HH with goal to keep Hgb >7, heme on board on EPO supportive care pain management wound care bowel regimen case discussed and evaluated by supervising physician Bang Guardado MD 10/12/19 2142: Subjective Allergies: Coded Allergies: No Known Allergies (Unverified , 10/10/17) Assessment/Plan Assessment/Plan Patient seen and examined with [employer]. Agree with above A&P as it reflects our joint deliberations. Yara Castro NP Oct 12, 2019 09:38 Bang Guardado MD Oct 12, 2019 21:42
--- NOTE | 2019-10-12 10:49 | Nephrology Progress Note ---
Assessment/Plan Problem List: (1) JAVIER (acute kidney injury) (2) Renal failure (ARF), acute on chronic (3) Dehydration (4) Electrolyte imbalance (5) Anemia (6) Respiratory failure, acute and chronic (7) COPD with exacerbation Assessment Patient is presented with sepsis and pneumonia and UTI Patient has acute renal failure, possible underlying chronic kidney failure Severe anemia Electrolyte imbalances: Hyponatremia, hypo-kalemia Chronic respiratory failure, COPD exacerbation Plan October 11: Blood pressure is stable. Labs reviewed. Continue as is. Dialysis as needed October 10: Blood pressure medication adjusted. Will check lab tomorrow. Dialysis as needed. Urine output remains low. October 09: Lab reviewed. Remains oliguric. Will give trial of Zaroxolyn. Continue per consultants. Adjust blood pressure medication. Will add Zaroxolyn and increased dose of Cardizem and add clonidine patch for better BP control October 08: Labs reviewed. Patient oliguric. Blood pressure elevated, BP medication adjusted. Recheck lab tomorrow. Dialysis and ultrafiltration as needed. October 07: Labs reviewed. Patient was dialyzed yesterday. 3000 mL fluid was removed. Patient appears to need periodic (twice a week minimum) dialysis for ultrafiltration. Continue to monitor renal parameters. Continue per consultants. October 06: Labs reviewed. Discussed with pulmonary. Will attempt dialysis and ultrafiltration. Continue per consultants. October 05: Lab reviewed. Serum creatinine rising. Blood pressure stabilized. Will recheck lab tomorrow. Dialysis as needed. Will increase lisinopril to 10 mg twice a day. October 04: Lab reviewed. Blood pressure medication adjusted since the patient is hypotensive. Serum creatinine rising. Recheck labs tomorrow. Dialysis as needed. Discussed with RN. October 03: Lab reviewed. Zestril added to BP medication. 1 dose of Seroquel ordered for agitation. Continue to monitor renal parameters. Continue per consultants. October 02: Lab reviewed. Potassium supplement IV given. 3% saline 250 cc ordered. Responded well to Zaroxolyn yesterday. Will continue to monitor electrolytes and renal parameters. Will increase minoxidil to 2.5 mg every 6 hours. October 01: Labs reviewed. Potassium supplement given. Last dialysis September 29. Serum creatinine rising gradually. Urine output very low. Patient appears to continue to need dialysis at least twice a week. Blood pressure still running high I will switch the hydralazine to minoxidil. We will give 1 dose of Zaroxolyn 10 mg today. Will check renal parameters tomorrow. September 30: Patient dialyzed yesterday. 3 L removed. Labs reviewed. Potassium supplement given. Continue per consultants. It appears that the patient required dialysis 2-3 times a week. September 29: Lab reviewed. Chest x-ray result noted. Continues to have pulmonary congestion. Urine output low. Will attempt dialysis again today with ultrafiltration. September 28: Lab reviewed. ABG reviewed. Potassium supplement given. No dialysis at this point. Will eval patient status and renal parameters daily. September 27: Lab reviewed. Last dialysis September 25. Continue to monitor renal parameters. Hemodialysis as needed. September 26: Lab reviewed. Dialyzed yesterday. Potassium supplement given. Medication list reviewed. Will observe renal parameters and arrange for dialysis as needed. September 25: Lab reviewed. Currently on hemodialysis. Tolerating well. Stable from renal standpoint of view. Blood pressure medication adjusted by increasing hydralazine. September 24: Lab reviewed. ABG reviewed. Both lab and ABG much improved. Patient was dialyzed yesterday. We will attempt dialysis tomorrow again. Will adjust that blood pressure medication dosages. September 23: Lab reviewed. ABG reviewed. Patient acidotic. IV bicarb 1 dose is given. Patient has dialysis catheter. Will order dialysis for ultrafiltration and correction of acid-base. Discussed with ERASMO Mohr. September 22: Labs reviewed. Potassium high. Kayexalate and Reglan given. Will discuss with the consultants regarding initiation of dialysis. September 21: Patient is being sedated. Labs reviewed. Potassium supplement discontinued. GFR 20. Continue per current treatment plan. Dialysis and ultrafiltration is a consideration. September 20: Patient periodically agitated. Labs reviewed. Creatinine 2.4. Medication reviewed. Continue per consultants. Calculated creatinine clearance 21. May need isolated ultrafiltration on dialysis. Will discuss with PMD. Meanwhile hemoglobin is lower, defer transfusion to PMD. September 19: DC IV fluid. Zaroxolyn via GT tube. Potassium supplement. Attempt to diurese. Chest CT as bilateral pleural effusion. If diuresis unsuccessful, will consider dialysis and ultrafiltration. September 18: Potassium supplement IV given. Hemoglobin stable. Patient remains full code. Continue per consultants. Previously: Potassium supplement IV Slow IV hydration Epogen subcu Adjust blood pressure medication IV fluid, rate adjusted Norman catheter, intake and output Monitor renal parameters Avoid nephrotoxic's Antibiotics Per orders 2D echocardiogram Kidney ultrasound Subjective ROS Limited/Unobtainable: Yes Objective Objective Last 24 Hour Vital Signs Date Time Temp Pulse Resp B/P (MAP) Pulse Ox O2 Delivery O2 Flow Rate FiO2 10/12/19 08:59 67 22 45 10/12/19 08:26 66 153/76 10/12/19 08:26 153/76 10/12/19 08:00 68 10/12/19 08:00 45 10/12/19 08:00 Mechanical Ventilator Mechanical Ventilator Mechanical Ventilator 10/12/19 07:58 98.9 66 24 153/76 (101) 98 10/12/19 07:11 65 21 98 Mechanical Ventilator 45 78 21 45 10/12/19 05:32 154/78 10/12/19 05:32 68 154/78 10/12/19 05:23 66 22 45 10/12/19 04:00 45 10/12/19 04:00 Mechanical Ventilator Mechanical Ventilator Mechanical Ventilator 10/12/19 04:00 98.1 66 20 142/71 (94) 97 10/12/19 03:30 66 10/12/19 03:03 68 22 45 10/12/19 00:32 70 22 97 Mechanical Ventilator 45 71 20 45 10/12/19 00:00 Mechanical Ventilator Mechanical Ventilator Mechanical Ventilator 10/12/19 00:00 98.1 70 20 148/77 (100) 96 10/12/19 00:00 45 10/11/19 23:47 73 10/11/19 23:31 73 148/77 10/11/19 23:30 72 28 45 10/11/19 22:00 151/77 10/11/19 21:00 85 170/75 10/11/19 20:38 72 26 45 10/11/19 20:30 45 10/11/19 20:00 35 10/11/19 20:00 98.2 75 20 170/75 (106) 92 10/11/19 20:00 Mechanical Ventilator Mechanical Ventilator Mechanical Ventilator 10/11/19 19:57 68 10/11/19 19:12 66 24 97 Mechanical Ventilator 35 68 20 35 10/11/19 17:41 67 140/71 10/11/19 17:40 140/71 10/11/19 17:20 71 19 35 10/11/19 16:00 35 10/11/19 16:00 Mechanical Ventilator 15.0 Mechanical Ventilator Mechanical Ventilator 10/11/19 16:00 96.8 77 25 142/71 (94) 96 10/11/19 16:00 67 10/11/19 15:01 69 25 35 10/11/19 13:35 35 10/11/19 13:31 94 10/11/19 13:21 66 48 35 35 10/11/19 13:14 67 25 94 Mechanical Ventilator 35 67 24 35 10/11/19 13:09 172/79 10/11/19 12:00 30 10/11/19 12:00 Mechanical Ventilator Mechanical Ventilator 10/11/19 12:00 68 10/11/19 12:00 97.7 73 25 176/73 (107) 92 10/11/19 11:55 79 156/80 10/11/19 11:00 69 25 30 Intake and Output 10/11/19 10/12/19 19:00 07:00 Intake Total 840 ml 690 ml Output Total 500 ml 380 ml Balance 340 ml 310 ml Intake Free Water 200 ml Tube Feeding 520 ml 440 ml Other 120 ml 250 ml Output Urine Total 500 ml 380 ml # Bowel Movements 2 Current Medications Medications (Trade) Dose Ordered Sig/Penny Route PRN Reason Start Time Stop Time Status Last Admin Dose Admin Acetaminophen (Tylenol) 325 mg Q6H PRN GT Temp >100.5 10/11/19 04:45 10/23/19 10:44 Albuterol/ Ipratropium (Albuterol/ Ipratropium) 3 ml Q6HRT HHN 10/11/19 07:00 10/14/19 12:59 10/12/19 08:24 Ascorbic Acid (Vitamin C) 500 mg DAILY ORAL 10/11/19 09:00 11/05/19 08:59 10/12/19 08:26 Chlorhexidine Gluconate (Ling-Hex 2%) 1 applic DAILY@2000 TOPIC 10/11/19 20:00 12/22/19 19:59 10/11/19 20:59 Clonidine HCl (Catapres TTS-3) 1 patch QWEEK TDERMAL 10/17/19 09:00 01/08/20 08:59 Daptomycin 250 mg/ Sodium Chloride 55 ml @ 100 mls/hr Q48H IV 10/11/19 16:00 10/16/19 15:59 10/11/19 17:37 Dextrose (Dextrose 50%) 25 ml Q30M PRN IV Hypoglycemia 10/11/19 04:30 01/03/20 18:29 Dextrose (Dextrose 50%) 50 ml Q30M PRN IV Hypoglycemia 10/11/19 04:30 01/03/20 18:29 Diltiazem HCl (Cardizem Tab) 90 mg Q6HR GT 10/11/19 06:00 11/09/19 11:59 10/12/19 05:32 Docusate Sodium (Colace) 100 mg Q8H GT 10/11/19 08:30 10/29/19 08:29 10/12/19 08:26 Epoetin Gelacio (Epoetin Gelacio(ESRD on dialysis)) 10,000 unit SUBQ 10/14/19 21:00 01/12/20 20:59 Haloperidol Lactate (Haldol) 5 mg Q6H PRN IM Agitation 10/11/19 05:00 11/22/19 10:59 10/11/19 12:34 Heparin Sodium (Porcine) (Heparin 5000 units/ml) 5,000 units EVERY 12 HOURS SUBQ 10/11/19 09:00 10/30/19 08:59 10/12/19 08:29 Insulin Aspart (NovoLOG) Q6HR SUBQ 10/11/19 06:00 01/03/20 20:59 Lansoprazole (Prevacid) 30 mg Q12HR GT 10/11/19 09:00 10/27/19 20:59 10/12/19 08:26 Lisinopril (PriniviL) 20 mg BID GT 10/11/19 09:00 11/08/19 17:59 10/12/19 08:26 Metoclopramide HCl (Reglan) 5 mg EVERY 6 HOURS GT 10/11/19 06:00 11/08/19 11:59 10/12/19 05:31 Metoprolol Tartrate (Lopressor) 25 mg Q12HR GT 10/11/19 09:00 01/07/20 20:59 10/12/19 08:26 Minoxidil (Loniten) 2.5 mg Q8HR ORAL 10/11/19 06:00 01/08/20 13:59 10/11/19 13:09 Morphine Sulfate (Morphine Sulfate) 2 mg Q4H PRN IVP For Pain 10/11/19 04:42 10/16/19 04:41 10/11/19 10:25 Polyethylene Glycol (Miralax) 17 gm BEDTIME ORAL 10/11/19 21:00 10/31/19 20:59 10/11/19 21:00 Risperidone (RisperDAL) 2 mg BEDTIME ORAL 10/11/19 21:00 11/19/19 20:59 10/11/19 21:00 Sertraline HCl (Zoloft) 100 mg BEDTIME GT 10/11/19 21:00 10/15/19 20:59 10/11/19 21:00 Sorbitol (sorbitoL) 30 ml EVERY 6 HOURS PRN GT Constipation 10/11/19 06:00 10/29/19 17:59 Vitamin B Complex/ Vit C/Folic Acid (Nephrovite) 1 tab DAILY ORAL 10/11/19 09:00 11/05/19 08:59 10/12/19 08:26 Zinc Sulfate (Zinc Sulfate) 220 mg DAILY ORAL 10/11/19 09:00 10/21/19 08:59 10/12/19 08:26 Laboratory Tests 10/11/19 11:39: POC Whole Blood Glucose [Pending] 10/11/19 17:03: POC Whole Blood Glucose [Pending] 10/11/19 17:36: POC Whole Blood Glucose [Pending] 10/11/19 23:15: POC Whole Blood Glucose 109H 10/12/19 02:40: White Blood Count 7.5, Red Blood Count 3.76L, Hemoglobin 11.3L, Hematocrit 34.8L , Mean Corpuscular Volume 93, Mean Corpuscular Hemoglobin 30.1, Mean Corpuscular Hemoglobin Concent 32.5, Red Cell Distribution Width 14.2, Platelet Count 492H, Mean Platelet Volume 5.3L, Neutrophils (%) (Auto) 71.9, Lymphocytes (%) (Auto) 19.3L, Monocytes (%) (Auto) 5.4, Eosinophils (%) (Auto) 2.6, Basophils (%) (Auto) 0.9, Sodium Level 132L, Potassium Level 3.4L, Chloride Level 97L, Carbon Dioxide Level 23, Anion Gap 12, Blood Urea Nitrogen 81H, Creatinine 2.8H, Estimat Glomerular Filtration Rate 18.1, Glucose Level 122H, Calcium Level 9.7, Phosphorus Level 4.3, Total Bilirubin 0.3, Aspartate Amino Transf (AST/SGOT) 37, Alanine Aminotransferase (ALT/SGPT) 14, Alkaline Phosphatase 181H, Total Creatine Kinase 109, C-Reactive Protein, Quantitative 6.4H, Pro-B-Type Natriuretic Peptide > 58882O, Total Protein 7.0, Albumin 1.8L, Globulin 5.2, Albumin/Globulin Ratio 0.3L 10/12/19 05:25: POC Whole Blood Glucose 114H Height (Feet): 5 Height (Inches): 5.00 Weight (Pounds): 140 General Appearance: no apparent distress EENT: other - On mechanical ventilator Cardiovascular: normal rate Respiratory/Chest: decreased breath sounds Abdomen: soft Objective No change Johnny Houston MD Oct 12, 2019 10:49
[2019-10-12 12:00] VITALS: BP 162/72
[2019-10-12 16:00] VITALS: BP 156/69
--- NOTE | 2019-10-12 16:13 | General Progress Note ---
Assessment/Plan Status: stable, other - Mood has improved he is able to smile there is no continuous tearing overall she looks better today energy looking the last several days continue with the same management Assessment/Plan: Overall patient looks better today than it should have been the last several days we will continue with the same management repeat laboratory tests will be done in the a.m. patient distress unexplained during hands moderately improved today and baby will continue Subjective Constitutional: Reports: no symptoms, other - No specific complaint HEENT: Reports: no symptoms Cardiovascular: Reports: other - No shortness of breath palpitation or dizziness Respiratory: Reports: no symptoms Genitourinary: Reports: no symptoms Neurologic/Psychiatric: Reports: other - Before my contact smiled to questions no unexplained tearful episode Hematologic/Lymphatic: Reports: no symptoms Allergies: Coded Allergies: No Known Allergies (Unverified , 10/10/17) Objective Last 24 Hour Vital Signs Date Time Temp Pulse Resp B/P (MAP) Pulse Ox O2 Delivery O2 Flow Rate FiO2 10/12/19 13:39 162/72 10/12/19 13:14 60 20 99 Mechanical Ventilator 45 86 20 45 10/12/19 12:48 65 10/12/19 12:20 62 162/72 10/12/19 12:00 Mechanical Ventilator Mechanical Ventilator Mechanical Ventilator 10/12/19 12:00 98.1 62 20 162/72 (102) 100 10/12/19 12:00 45 10/12/19 11:22 60 20 45 10/12/19 08:59 67 22 45 10/12/19 08:26 66 153/76 10/12/19 08:26 153/76 10/12/19 08:00 68 10/12/19 08:00 45 10/12/19 08:00 Mechanical Ventilator Mechanical Ventilator Mechanical Ventilator 10/12/19 07:58 98.9 66 24 153/76 (101) 98 10/12/19 07:11 65 21 98 Mechanical Ventilator 45 78 21 45 10/12/19 05:32 154/78 10/12/19 05:32 68 154/78 10/12/19 05:23 66 22 45 10/12/19 04:00 45 10/12/19 04:00 Mechanical Ventilator Mechanical Ventilator Mechanical Ventilator 10/12/19 04:00 98.1 66 20 142/71 (94) 97 8/29/20 03:30 66 10/12/19 03:03 68 22 45 10/12/19 00:32 70 22 97 Mechanical Ventilator 45 71 20 45 10/12/19 00:00 Mechanical Ventilator Mechanical Ventilator Mechanical Ventilator 10/12/19 00:00 98.1 70 20 148/77 (100) 96 10/12/19 00:00 45 10/11/19 23:47 73 10/11/19 23:31 73 148/77 10/11/19 23:30 72 28 45 10/11/19 22:00 151/77 10/11/19 21:00 85 170/75 10/11/19 20:38 72 26 45 10/11/19 20:30 45 10/11/19 20:00 35 10/11/19 20:00 98.2 75 20 170/75 (106) 92 10/11/19 20:00 Mechanical Ventilator Mechanical Ventilator Mechanical Ventilator 10/11/19 19:57 68 10/11/19 19:12 66 24 97 Mechanical Ventilator 35 68 20 35 10/11/19 17:41 67 140/71 10/11/19 17:40 140/71 10/11/19 17:20 71 19 35 Intake and Output 10/11/19 10/12/19 19:00 07:00 Intake Total 840 ml 690 ml Output Total 500 ml 380 ml Balance 340 ml 310 ml Intake Free Water 200 ml Tube Feeding 520 ml 440 ml Other 120 ml 250 ml Output Urine Total 500 ml 380 ml # Bowel Movements 2 Laboratory Tests 10/11/19 17:03: POC Whole Blood Glucose [Pending] 10/11/19 17:36: POC Whole Blood Glucose [Pending] 10/11/19 23:15: POC Whole Blood Glucose 109H 10/12/19 02:40: White Blood Count 7.5, Red Blood Count 3.76L, Hemoglobin 11.3L, Hematocrit 34.8L , Mean Corpuscular Volume 93, Mean Corpuscular Hemoglobin 30.1, Mean Corpuscular Hemoglobin Concent 32.5, Red Cell Distribution Width 14.2, Platelet Count 492H, Mean Platelet Volume 5.3L, Neutrophils (%) (Auto) 71.9, Lymphocytes (%) (Auto) 19.3L, Monocytes (%) (Auto) 5.4, Eosinophils (%) (Auto) 2.6, Basophils (%) (Auto) 0.9, Sodium Level 132L, Potassium Level 3.4L, Chloride Level 97L, Carbon Dioxide Level 23, Anion Gap 12, Blood Urea Nitrogen 81H, Creatinine 2.8H, Estimat Glomerular Filtration Rate 18.1, Glucose Level 122H, Calcium Level 9.7, Phosphorus Level 4.3, Total Bilirubin 0.3, Aspartate Amino Transf (AST/SGOT) 37, Alanine Aminotransferase (ALT/SGPT) 14, Alkaline Phosphatase 181H, Total Creatine Kinase 109, C-Reactive Protein, Quantitative 6.4H, Pro-B-Type Natriuretic Peptide > 30378C, Total Protein 7.0, Albumin 1.8L, Globulin 5.2, Albumin/Globulin Ratio 0.3L 10/12/19 05:25: POC Whole Blood Glucose 114H 10/12/19 12:05: POC Whole Blood Glucose 101 Height (Feet): 5 Height (Inches): 5.00 Weight (Pounds): 140 General Appearance: alert, lethargic, cachetic EENT: normal ENT inspection Neck: non-tender, supple Cardiovascular: normal rate, regular rhythm, no JVD Respiratory/Chest: lungs clear, normal breath sounds, no respiratory distress, other - She did have severe distress when she was. Placed on CPAP machine and had to be reassigned to ventilator and attempt failed Abdomen: non tender, soft, no organomegaly, no mass Extremities: non-tender Neurologic: alert, oriented x 3, responsive Lucas Dong MD Oct 12, 2019 16:13
[2019-10-12] MEDS ORDERED: Tubing IV Secondary IV ONE (18:16)
[2019-10-12 20:00] VITALS: BP 152/70
[2019-10-12] MEDS: Miralax 17gm pkt ORAL SCH (20:10)
[2019-10-12] MEDS: Sertraline 100mg tab GT SCH (20:11)
[2019-10-12] MEDS: Dyna-Hex 2% Top Sol 2oz TOPIC SCH (20:11)
[2019-10-13] VITALS: BP 164/81
[2019-10-13] MEDS: Albuterol/Ipratropium 3ml neb HHN SCH ×4 (01:02→18:56)
[2019-10-13] MEDS: Morphine Sulfate 2mg/ml Inj(IV/IM USE ONLY) IVP PRN ×4 (03:55→22:22)
[2019-10-13 04:00] VITALS: BP 154/74
[2019-10-13] MEDS: Metoclopramide 10mg/10ml Liq GT SCH ×4 (05:29→23:48)
[2019-10-13] MEDS: dilTIAZem HCl 90mg tab GT SCH ×4 (05:29→23:48)
[2019-10-13] MEDS: Minoxidil 2.5mg tab ORAL SCH ×3 (05:29→21:20)
[2019-10-13] MEDS: NovoLOG Insulin Flexpen SUBQ SCH ×4 (06:00→23:51)
[2019-10-13 06:10] LABS: BASOPHILS % (AUTO) 1.1 % (0.0-2.0); EOSINOPHILS % (AUTO) 0.8 % (0.0-3.0); HEMATOCRIT 30.8 % (37.0-47.0); LYMPHOCYTES % (AUTO) 19.4 % (20.0-45.0); MEAN CORPUSCULAR VOLUME 94 FL (80-99); MONOCYTES % (AUTO) 6.6 % (1.0-10.0); NEUTROPHILS % (AUTO) 72.1 % (45.0-75.0); PLATELET COUNT 449 K/UL (150-450); RED BLOOD COUNT 3.28 M/UL (4.20-5.40); RED CELL DISTRIBUTION WIDTH 14.8 % (11.6-14.8); WHITE BLOOD COUNT 7.2 K/UL (4.8-10.8)
[2019-10-13 06:42] LABS: ALANINE AMINOTRANSFERASE 13 U/L (12-78); ALBUMIN 1.7 G/DL (3.4-5.0); ALBUMIN/GLOBULIN RATIO 0.3 (1.0-2.7); ALKALINE PHOSPHATASE 169 U/L (46-116); ANION GAP 11 mmol/L (5-15); ASPARTATE AMINO TRANSFERASE 24 U/L (15-37); BILIRUBIN,TOTAL 0.3 MG/DL (0.2-1.0); BLOOD UREA NITROGEN 81 mg/dL (7-18); CALCIUM 9.3 MG/DL (8.5-10.1); CARBON DIOXIDE 23 MMOL/L (21-32); CHLORIDE 98 MMOL/L (98-107); CREATININE 2.8 MG/DL (0.55-1.30); PHOSPHORUS 4.6 MG/DL (2.5-4.9); POTASSIUM 3.6 MMOL/L (3.5-5.1); SODIUM 132 MMOL/L (136-145)
--- NOTE | 2019-10-13 07:41 | Hematology/Onc Progress Note ---
Assessment/Plan Assessment/Plan Assessment and Recs # Leukocytosis, now with gram positive bacteremias well as pna noted --> historically --> PPM site (pocket) infection (redness and pain, bacteremia) and likely pocket abscess - no vegetation seen on ABBIE --> is s'p pm removal and also pocket infection is better --> per cards recs in re to tach/davis --> wbc 15-->19-->17-->15-->13->12-->13-->12>13-->18-->9-->7 --> ABX cefepime/levaquin--> vanc/angelo --> ID recs are noted # Anemia of chronic disease due to underlying chronic medical issues, multifactorial --> Anemia workup has been reviewed, cw acd --> No evidence of hemolysis is noted, peripheral smear has been reviewed. --> Hgb goal >7. Transfuse prn. --> Epogen started --> Medications have been reviewed --> low threshold for gi evaluation in case has occult + --> hgb 7.1-->7.8-->8.9->9.2-->8.5-->9.7-->10-->8.8-->9.6-->8.7->8.6-->7.2->8.7- >9.1-->9.2-->9-->8.7-->9.3-->9.8-->10 --> 1 unit prbc 09/27 # Thrombocytois is likely reactive process, is s/p infection --> plt trend 610k-->706k-->354 --> p smear reviewed # Acute hypoxic respiratory failure s/p intubation 11/23- ?ARDS --> on vent/trach # Gram positive bacteremia- real bacteremia- 2ry to above and probable PNA --> per id care # JAVIER initially >2 --> now improved with D5w # Dysphagia s/p peg # Thoracic aortic dissection s/p repair early 2017 # Psychiatric history on ativan/haldol # [place] resident # Dvt ppx heparin sq The timing of this note does not necessarily reflect the time of the patient was seen. Greatly appreciate consultation. Subjective Constitutional: Denies: no symptoms, chills, fever, malaise, weakness, other HEENT: Denies: no symptoms, eye pain, blurred vision, tearing, double vision, ear pain, ear discharge, nose pain, nose congestion, throat pain, throat swelling, mouth pain, mouth swelling, other Cardiovascular: Denies: no symptoms, chest pain, edema, irregular heart rate, lightheadedness, palpitations, syncope, other Respiratory: Denies: no symptoms, cough, shortness of breath, SOB with excertion, SOB at rest, sputum, wheezing, other Gastrointestinal/Abdominal: Denies: no symptoms, abdomen distended, abdominal pain, black stools, tarry stools, blood in stool, constipated, diarrhea, difficulty swallowing, nausea, poor appetite, poor fluid intake, rectal bleeding , vomiting, other Genitourinary: Denies: no symptoms, burning, discharge, frequency, flank pain, hematuria, incontinence, pain, urgency, other Neurologic/Psychiatric: Denies: no symptoms, anxiety, depressed, emotional problems, headache, numbness, paresthesia, pre-existing deficit, seizure, tingling, tremors, weakness, other Endocrine: Denies: no symptoms, excessive sweating, flushing, intolerance to cold, intolerance to heat, increased hunger, increased thirst, increased urine, unexplained weight gain, unexplained weight loss, other Allergies: Coded Allergies: No Known Allergies (Unverified , 10/10/17) Subjective 09/16 on vent now, consulted in am pulm, on vent setting, labs noted, hep sq 09/17 meds noted, cbc noted, labs noted, no bleeding 09/18 is to undergo potential v/q scan given abg, labs noted, resless, on ativan, to get haldol today, roman rn 09/19 remains agitated, covering, with sacral wound seeping, likely cause of anemia, roman rn 09/26 restless, remains agitated, gtube ripped, eval with rn, and ifeoma consulted 09/27 remains on vent, agitated, seen by gi, hgb low, roman George to transfuse 1 unit prbc 09/28 meds noted, no bleeding, on vent, s/p blood tranfusion, cbc pending, roman ramesh 09/29 remains in the icu, roman rn in the am, agitated, on versed, fentanyl, restraints 09/30 in icu, trach to vent, on gtube feeds, fentanyl, agitated 10/01 in icu, roman Ayoub rn, no bleeding, sleeping, labs noted, hgb >9 10/02 sedated in icu, is on vent, roman rn, more alert and more conversive with face grimaces 10/03 labs have been reviewed, no bleeding, icu, meds reviewed, on fentanyl and versed, to consult psych 10/05 remains on fentanyl, also with restraints, no bleeding, cbc ordered 10/06 remains obtunded, though reactive when proded, labs pending from am 10/07 hypertensive, asleep, no bleeding, roman rn, no major night sweats\ 10/08 formula leaking from gtube site, no bleeding, with some minor residual 10/09 remains on gtube feeds, on lactulose, no major changes, confused but nods 10/10 labs reviewed, lactulose discontinued as having diarrhea, no bleeding 10/12 meds reviewed, no bleeding, heparin given, roman Starr rn in am, comfortable Objective Objective Current Medications Medications (Trade) Dose Ordered Sig/Penny Route PRN Reason Start Time Stop Time Status Last Admin Dose Admin Acetaminophen (Tylenol) 325 mg Q6H PRN GT Temp >100.5 10/11/19 04:45 10/23/19 10:44 Albuterol/ Ipratropium (Albuterol/ Ipratropium) 3 ml Q6HRT HHN 10/11/19 07:00 10/14/19 12:59 10/13/19 01:02 Ascorbic Acid (Vitamin C) 500 mg DAILY ORAL 10/11/19 09:00 11/05/19 08:59 10/12/19 08:26 Chlorhexidine Gluconate (Ling-Hex 2%) 1 applic DAILY@2000 TOPIC 10/11/19 20:00 12/22/19 19:59 10/12/19 20:11 Clonidine HCl (Catapres TTS-3) 1 patch QWEEK TDERMAL 10/17/19 09:00 01/08/20 08:59 Daptomycin 250 mg/ Sodium Chloride 55 ml @ 100 mls/hr Q48H IV 10/11/19 16:00 10/16/19 15:59 10/11/19 17:37 Dextrose (Dextrose 50%) 25 ml Q30M PRN IV Hypoglycemia 10/11/19 04:30 01/03/20 18:29 Dextrose (Dextrose 50%) 50 ml Q30M PRN IV Hypoglycemia 10/11/19 04:30 01/03/20 18:29 Diltiazem HCl (Cardizem Tab) 90 mg Q6HR GT 10/11/19 06:00 11/09/19 11:59 10/13/19 05:29 Docusate Sodium (Colace) 100 mg Q8H GT 10/11/19 08:30 10/29/19 08:29 10/12/19 23:44 Epoetin Gelacio (Epoetin Gelacio(ESRD on dialysis)) 10,000 unit SUBQ 10/14/19 21:00 01/12/20 20:59 Haloperidol Lactate (Haldol) 5 mg Q6H PRN IM Agitation 10/11/19 05:00 11/22/19 10:59 10/11/19 12:34 Heparin Sodium (Porcine) (Heparin 5000 units/ml) 5,000 units EVERY 12 HOURS SUBQ 10/11/19 09:00 10/30/19 08:59 10/12/19 20:18 Insulin Aspart (NovoLOG) Q6HR SUBQ 10/11/19 06:00 01/03/20 20:59 Lansoprazole (Prevacid) 30 mg Q12HR GT 10/11/19 09:00 10/27/19 20:59 10/12/19 20:10 Lisinopril (PriniviL) 20 mg BID GT 10/11/19 09:00 11/08/19 17:59 10/12/19 17:10 Metoclopramide HCl (Reglan) 5 mg EVERY 6 HOURS GT 10/11/19 06:00 11/08/19 11:59 10/13/19 05:29 Metoprolol Tartrate (Lopressor) 25 mg Q12HR GT 10/11/19 09:00 01/07/20 20:59 10/12/19 20:10 Minoxidil (Loniten) 2.5 mg Q8HR ORAL 10/11/19 06:00 01/08/20 13:59 10/13/19 05:29 Morphine Sulfate (Morphine Sulfate) 2 mg Q4H PRN IVP For Pain 10/11/19 04:42 10/16/19 04:41 10/13/19 03:55 Polyethylene Glycol (Miralax) 17 gm BEDTIME ORAL 10/11/19 21:00 10/31/19 20:59 10/12/19 20:10 Risperidone (RisperDAL) 2 mg BEDTIME ORAL 10/11/19 21:00 11/19/19 20:59 10/12/19 20:10 Sertraline HCl (Zoloft) 100 mg BEDTIME GT 10/11/19 21:00 10/15/19 20:59 10/12/19 20:11 Sorbitol (sorbitoL) 30 ml EVERY 6 HOURS PRN GT Constipation 10/11/19 06:00 10/29/19 17:59 Vitamin B Complex/ Vit C/Folic Acid (Nephrovite) 1 tab DAILY ORAL 10/11/19 09:00 11/05/19 08:59 10/12/19 08:26 Zinc Sulfate (Zinc Sulfate) 220 mg DAILY ORAL 10/11/19 09:00 10/21/19 08:59 10/12/19 08:26 Last 24 Hour Vital Signs Date Time Temp Pulse Resp B/P (MAP) Pulse Ox O2 Delivery O2 Flow Rate FiO2 10/13/19 05:29 154/74 10/13/19 05:29 70 154/74 10/13/19 04:51 70 22 45 10/13/19 04:25 98.2 10/13/19 04:00 45 10/13/19 04:00 Mechanical Ventilator Mechanical Ventilator Mechanical Ventilator 10/13/19 04:00 98.4 68 20 154/74 (100) 100 10/13/19 04:00 63 10/13/19 03:17 67 20 45 10/13/19 01:02 70 22 99 Mechanical Ventilator 45 69 20 45 10/13/19 00:00 98.2 68 20 164/81 (108) 100 10/13/19 00:00 Mechanical Ventilator Mechanical Ventilator Mechanical Ventilator 10/13/19 00:00 63 10/13/19 00:00 45 10/12/19 23:44 68 164/81 10/12/19 22:49 64 21 45 10/12/19 21:36 152/79 10/12/19 20:56 66 23 45 10/12/19 20:10 66 152/79 10/12/19 20:00 Mechanical Ventilator Mechanical Ventilator Mechanical Ventilator 10/12/19 20:00 45 10/12/19 20:00 97.5 66 20 152/70 (97) 99 10/12/19 19:24 65 10/12/19 19:08 66 20 99 Mechanical Ventilator 45 67 20 45 10/12/19 17:10 156/69 10/12/19 17:09 69 156/69 10/12/19 16:41 69 20 45 10/12/19 16:00 98.2 65 20 156/69 (98) 98 10/12/19 16:00 Mechanical Ventilator Mechanical Ventilator Mechanical Ventilator 10/12/19 16:00 45 10/12/19 15:41 65 10/12/19 15:04 64 20 45 10/12/19 13:39 162/72 10/12/19 13:14 60 20 99 Mechanical Ventilator 45 86 20 45 10/12/19 12:48 65 10/12/19 12:20 62 162/72 10/12/19 12:00 Mechanical Ventilator Mechanical Ventilator Mechanical Ventilator 10/12/19 12:00 98.1 62 20 162/72 (102) 100 10/12/19 12:00 45 10/12/19 11:22 60 20 45 10/12/19 08:59 67 22 45 10/12/19 08:26 66 153/76 10/12/19 08:26 153/76 10/12/19 08:00 68 10/12/19 08:00 45 10/12/19 08:00 Mechanical Ventilator Mechanical Ventilator Mechanical Ventilator 10/12/19 07:58 98.9 66 24 153/76 (101) 98 10/12/19 07:11 65 21 98 Mechanical Ventilator 45 78 21 45 10/12/19 05:32 154/78 10/12/19 05:32 68 154/78 10/12/19 05:23 66 22 45 10/12/19 04:00 45 10/12/19 04:00 Mechanical Ventilator Mechanical Ventilator Mechanical Ventilator 10/12/19 04:00 98.1 66 20 142/71 (94) 97 10/12/19 03:30 66 10/12/19 03:03 68 22 45 10/12/19 00:32 70 22 97 Mechanical Ventilator 45 71 20 45 10/12/19 00:00 Mechanical Ventilator Mechanical Ventilator Mechanical Ventilator 10/12/19 00:00 98.1 70 20 148/77 (100) 96 10/12/19 00:00 45 10/11/19 23:47 73 10/11/19 23:31 73 148/77 10/11/19 23:30 72 28 45 10/11/19 22:00 151/77 10/11/19 21:00 85 170/75 10/11/19 20:38 72 26 45 10/11/19 20:30 45 10/11/19 20:00 35 10/11/19 20:00 98.2 75 20 170/75 (106) 92 10/11/19 20:00 Mechanical Ventilator Mechanical Ventilator Mechanical Ventilator 10/11/19 19:57 68 10/11/19 19:12 66 24 97 Mechanical Ventilator 35 68 20 35 10/11/19 17:41 67 140/71 10/11/19 17:40 140/71 10/11/19 17:20 71 19 35 10/11/19 16:00 35 10/11/19 16:00 Mechanical Ventilator 15.0 Mechanical Ventilator Mechanical Ventilator 10/11/19 16:00 96.8 77 25 142/71 (94) 96 10/11/19 16:00 67 10/11/19 15:01 69 25 35 10/11/19 13:35 35 10/11/19 13:31 94 10/11/19 13:21 66 48 35 35 10/11/19 13:14 67 25 94 Mechanical Ventilator 35 67 24 35 10/11/19 13:09 172/79 10/11/19 12:00 30 10/11/19 12:00 Mechanical Ventilator Mechanical Ventilator 10/11/19 12:00 68 10/11/19 12:00 97.7 73 25 176/73 (107) 92 10/11/19 11:55 79 156/80 10/11/19 11:00 69 25 30 10/11/19 09:00 71 29 40 10/11/19 08:16 66 138/64 10/11/19 08:16 138/64 10/11/19 08:00 Mechanical Ventilator Mechanical Ventilator 10/11/19 08:00 30 10/11/19 08:00 98.1 66 25 138/64 (88) 99 10/11/19 08:00 74 Intake and Output 10/12/19 10/13/19 19:00 07:00 Intake Total 550 ml 830 ml Output Total 300 ml Balance 550 ml 530 ml Intake Free Water 110 ml 300 ml Tube Feeding 440 ml 440 ml Other 90 ml Output Urine Total 300 ml Labs Test 10/10/19 07:57 10/10/19 11:56 10/10/19 16:22 10/11/19 05:11 Arterial Blood pH 7.422 (7.350-7.450) Arterial Blood Partial Pressure CO2 32.4 mmHg (35.0-45.0) Arterial Blood Partial Pressure O2 90.1 mmHg (75.0-100.0) Arterial Blood HCO3 20.6 mmol/L (22.0-26.0) Arterial Blood Oxygen Saturation 96.6 % (95-100) Arterial Blood Base Excess -3.1 (-2-2) Rojas Test Positive Test 10/11/19 11:39 10/11/19 17:03 10/11/19 17:36 10/11/19 23:15 POC Whole Blood Glucose 109 MG/DL (74-106) Test 10/12/19 02:40 10/12/19 05:25 10/12/19 12:05 10/12/19 16:45 White Blood Count 7.5 K/UL (4.8-10.8) Red Blood Count 3.76 M/UL (4.20-5.40) Hemoglobin 11.3 G/DL (12.0-16.0) Hematocrit 34.8 % (37.0-47.0) Mean Corpuscular Volume 93 FL (80-99) Mean Corpuscular Hemoglobin 30.1 PG (27.0-31.0) Mean Corpuscular Hemoglobin Concent 32.5 G/DL (32.0-36.0) Red Cell Distribution Width 14.2 % (11.6-14.8) Platelet Count 492 K/UL (150-450) Mean Platelet Volume 5.3 FL (6.5-10.1) Neutrophils (%) (Auto) 71.9 % (45.0-75.0) Lymphocytes (%) (Auto) 19.3 % (20.0-45.0) Monocytes (%) (Auto) 5.4 % (1.0-10.0) Eosinophils (%) (Auto) 2.6 % (0.0-3.0) Basophils (%) (Auto) 0.9 % (0.0-2.0) Sodium Level 132 MMOL/L (136-145) Potassium Level 3.4 MMOL/L (3.5-5.1) Chloride Level 97 MMOL/L (98-107) Carbon Dioxide Level 23 MMOL/L (21-32) Anion Gap 12 mmol/L (5-15) Blood Urea Nitrogen 81 mg/dL (7-18) Creatinine 2.8 MG/DL (0.55-1.30) Estimat Glomerular Filtration Rate 18.1 mL/min (>60) Glucose Level 122 MG/DL (74-106) Calcium Level 9.7 MG/DL (8.5-10.1) Phosphorus Level 4.3 MG/DL (2.5-4.9) Total Bilirubin 0.3 MG/DL (0.2-1.0) Aspartate Amino Transf (AST/SGOT) 37 U/L (15-37) Alanine Aminotransferase (ALT/SGPT) 14 U/L (12-78) Alkaline Phosphatase 181 U/L (46-116) Total Creatine Kinase 109 U/L (26-308) C-Reactive Protein, Quantitative 6.4 mg/dL (0.00-0.90) Pro-B-Type Natriuretic Peptide > 70477 pg/mL (0-125) Total Protein 7.0 G/DL (6.4-8.2) Albumin 1.8 G/DL (3.4-5.0) Globulin 5.2 g/dL Albumin/Globulin Ratio 0.3 (1.0-2.7) POC Whole Blood Glucose 114 MG/DL (74-106) 101 MG/DL (74-106) 103 MG/DL (74-106) Test 10/13/19 03:48 White Blood Count 7.2 K/UL (4.8-10.8) Red Blood Count 3.28 M/UL (4.20-5.40) Hemoglobin 10.0 G/DL (12.0-16.0) Hematocrit 30.8 % (37.0-47.0) Mean Corpuscular Volume 94 FL (80-99) Mean Corpuscular Hemoglobin 30.3 PG (27.0-31.0) Mean Corpuscular Hemoglobin Concent 32.4 G/DL (32.0-36.0) Red Cell Distribution Width 14.8 % (11.6-14.8) Platelet Count 449 K/UL (150-450) Mean Platelet Volume 5.3 FL (6.5-10.1) Neutrophils (%) (Auto) 72.1 % (45.0-75.0) Lymphocytes (%) (Auto) 19.4 % (20.0-45.0) Monocytes (%) (Auto) 6.6 % (1.0-10.0) Eosinophils (%) (Auto) 0.8 % (0.0-3.0) Basophils (%) (Auto) 1.1 % (0.0-2.0) Sodium Level 132 MMOL/L (136-145) Potassium Level 3.6 MMOL/L (3.5-5.1) Chloride Level 98 MMOL/L (98-107) Carbon Dioxide Level 23 MMOL/L (21-32) Anion Gap 11 mmol/L (5-15) Blood Urea Nitrogen 81 mg/dL (7-18) Creatinine 2.8 MG/DL (0.55-1.30) Estimat Glomerular Filtration Rate 18.1 mL/min (>60) Glucose Level 111 MG/DL (74-106) Uric Acid 7.1 MG/DL (2.6-7.2) Calcium Level 9.3 MG/DL (8.5-10.1) Phosphorus Level 4.6 MG/DL (2.5-4.9) Magnesium Level 3.2 MG/DL (1.8-2.4) Total Bilirubin 0.3 MG/DL (0.2-1.0) Aspartate Amino Transf (AST/SGOT) 24 U/L (15-37) Alanine Aminotransferase (ALT/SGPT) 13 U/L (12-78) Alkaline Phosphatase 169 U/L (46-116) C-Reactive Protein, Quantitative 4.7 mg/dL (0.00-0.90) Pro-B-Type Natriuretic Peptide > 55864 pg/mL (0-125) Total Protein 6.6 G/DL (6.4-8.2) Albumin 1.7 G/DL (3.4-5.0) Globulin 4.9 g/dL Albumin/Globulin Ratio 0.3 (1.0-2.7) Height (Feet): 5 Height (Inches): 5.00 Weight (Pounds): 148 Objective Physical Exam: Vitals: reviewed General: NAD HEENT: nc, at Neck: supple ++tracn/vent Chest: clear breath sounds bilaterally Cardiovascular: RRR, no s3, s4 Abdomen: soft, nontender, nd +gtube Extremities: no cce, normal range of motion Neuro: alert Evan Muhammad MD Oct 13, 2019 07:41
[2019-10-13 08:00] VITALS: BP 144/64
[2019-10-13] MEDS: Docusate 100mg/10ml Liq GT SCH ×3 (08:37→23:47)
[2019-10-13] MEDS: Nephrovite tab (Rena-Vite) ORAL SCH (08:37)
[2019-10-13] MEDS: Ascorbic Acid 500mg tab ORAL SCH (08:37)
[2019-10-13] MEDS: Zinc Sulfate 220mg ORAL SCH (08:37)
[2019-10-13] MEDS: Lisinopril 20mg tab GT SCH ×2 (08:37→17:30)
[2019-10-13] MEDS: Heparin 5000 units/ml inj SUBQ SCH ×2 (08:38→20:40)
--- NOTE | 2019-10-13 09:41 | Nephrology Progress Note ---
Assessment/Plan Problem List: (1) JAVIER (acute kidney injury) (2) Renal failure (ARF), acute on chronic (3) Dehydration (4) Electrolyte imbalance (5) Anemia (6) Respiratory failure, acute and chronic (7) COPD with exacerbation Assessment Patient is presented with sepsis and pneumonia and UTI Patient has acute renal failure, possible underlying chronic kidney failure Severe anemia Electrolyte imbalances: Hyponatremia, hypo-kalemia Chronic respiratory failure, COPD exacerbation Plan October 12: Blood pressure stable. Labs reviewed. BUN rising. Remains oliguric. Dialysis tomorrow. October 11: Blood pressure is stable. Labs reviewed. Continue as is. Dialysis as needed October 10: Blood pressure medication adjusted. Will check lab tomorrow. Dialysis as needed. Urine output remains low. October 09: Lab reviewed. Remains oliguric. Will give trial of Zaroxolyn. Continue per consultants. Adjust blood pressure medication. Will add Zaroxolyn and increased dose of Cardizem and add clonidine patch for better BP control October 08: Labs reviewed. Patient oliguric. Blood pressure elevated, BP medication adjusted. Recheck lab tomorrow. Dialysis and ultrafiltration as needed. October 07: Labs reviewed. Patient was dialyzed yesterday. 3000 mL fluid was removed. Patient appears to need periodic (twice a week minimum) dialysis for ultrafiltration. Continue to monitor renal parameters. Continue per consultants. October 06: Labs reviewed. Discussed with pulmonary. Will attempt dialysis and ultrafiltration. Continue per consultants. October 05: Lab reviewed. Serum creatinine rising. Blood pressure stabilized. Will recheck lab tomorrow. Dialysis as needed. Will increase lisinopril to 10 mg twice a day. October 04: Lab reviewed. Blood pressure medication adjusted since the patient is hypotensive. Serum creatinine rising. Recheck labs tomorrow. Dialysis as needed. Discussed with RN. October 03: Lab reviewed. Zestril added to BP medication. 1 dose of Seroquel ordered for agitation. Continue to monitor renal parameters. Continue per consultants. October 02: Lab reviewed. Potassium supplement IV given. 3% saline 250 cc ordered. Responded well to Zaroxolyn yesterday. Will continue to monitor electrolytes and renal parameters. Will increase minoxidil to 2.5 mg every 6 hours. October 01: Labs reviewed. Potassium supplement given. Last dialysis September 29. Serum creatinine rising gradually. Urine output very low. Patient appears to continue to need dialysis at least twice a week. Blood pressure still running high I will switch the hydralazine to minoxidil. We will give 1 dose of Zaroxolyn 10 mg today. Will check renal parameters tomorrow. September 30: Patient dialyzed yesterday. 3 L removed. Labs reviewed. Potassium supplement given. Continue per consultants. It appears that the patient required dialysis 2-3 times a week. September 29: Lab reviewed. Chest x-ray result noted. Continues to have pulmonary congestion. Urine output low. Will attempt dialysis again today with ultrafiltration. September 28: Lab reviewed. ABG reviewed. Potassium supplement given. No dialysis at this point. Will eval patient status and renal parameters daily. September 27: Lab reviewed. Last dialysis September 25. Continue to monitor renal parameters. Hemodialysis as needed. September 26: Lab reviewed. Dialyzed yesterday. Potassium supplement given. Medication list reviewed. Will observe renal parameters and arrange for dialysis as needed. September 25: Lab reviewed. Currently on hemodialysis. Tolerating well. Stable from renal standpoint of view. Blood pressure medication adjusted by increasing hydralazine. September 24: Lab reviewed. ABG reviewed. Both lab and ABG much improved. Patient was dialyzed yesterday. We will attempt dialysis tomorrow again. Will adjust that blood pressure medication dosages. September 23: Lab reviewed. ABG reviewed. Patient acidotic. IV bicarb 1 dose is given. Patient has dialysis catheter. Will order dialysis for ultrafiltration and correction of acid-base. Discussed with ERASMO Mohr. September 22: Labs reviewed. Potassium high. Kayexalate and Reglan given. Will discuss with the consultants regarding initiation of dialysis. September 21: Patient is being sedated. Labs reviewed. Potassium supplement discontinued. GFR 20. Continue per current treatment plan. Dialysis and ultrafiltration is a consideration. September 20: Patient periodically agitated. Labs reviewed. Creatinine 2.4. Medication reviewed. Continue per consultants. Calculated creatinine clearance 21. May need isolated ultrafiltration on dialysis. Will discuss with PMD. Meanwhile hemoglobin is lower, defer transfusion to PMD. September 19: DC IV fluid. Zaroxolyn via GT tube. Potassium supplement. Attempt to diurese. Chest CT as bilateral pleural effusion. If diuresis unsuccessful, will consider dialysis and ultrafiltration. September 18: Potassium supplement IV given. Hemoglobin stable. Patient remains full code. Continue per consultants. Previously: Potassium supplement IV Slow IV hydration Epogen subcu Adjust blood pressure medication IV fluid, rate adjusted Norman catheter, intake and output Monitor renal parameters Avoid nephrotoxic's Antibiotics Per orders 2D echocardiogram Kidney ultrasound Subjective ROS Limited/Unobtainable: Yes Objective Objective Last 24 Hour Vital Signs Date Time Temp Pulse Resp B/P (MAP) Pulse Ox O2 Delivery O2 Flow Rate FiO2 10/13/19 08:38 69 144/64 10/13/19 08:37 144/64 10/13/19 08:00 Mechanical Ventilator Mechanical Ventilator Mechanical Ventilator 10/13/19 08:00 45 10/13/19 08:00 98.8 69 24 144/64 (90) 97 10/13/19 07:49 70 10/13/19 05:29 154/74 10/13/19 05:29 70 154/74 10/13/19 04:51 70 22 45 10/13/19 04:25 98.2 10/13/19 04:00 45 10/13/19 04:00 Mechanical Ventilator Mechanical Ventilator Mechanical Ventilator 10/13/19 04:00 98.4 68 20 154/74 (100) 100 10/13/19 04:00 63 10/13/19 03:17 67 20 45 10/13/19 01:02 70 22 99 Mechanical Ventilator 45 69 20 45 10/13/19 00:00 98.2 68 20 164/81 (108) 100 10/13/19 00:00 Mechanical Ventilator Mechanical Ventilator Mechanical Ventilator 10/13/19 00:00 63 10/13/19 00:00 45 10/12/19 23:44 68 164/81 10/12/19 22:49 64 21 45 10/12/19 21:36 152/79 10/12/19 20:56 66 23 45 10/12/19 20:10 66 152/79 10/12/19 20:00 Mechanical Ventilator Mechanical Ventilator Mechanical Ventilator 10/12/19 20:00 45 10/12/19 20:00 97.5 66 20 152/70 (97) 99 10/12/19 19:24 65 10/12/19 19:08 66 20 99 Mechanical Ventilator 45 67 20 45 10/12/19 17:10 156/69 10/12/19 17:09 69 156/69 10/12/19 16:41 69 20 45 10/12/19 16:00 98.2 65 20 156/69 (98) 98 10/12/19 16:00 Mechanical Ventilator Mechanical Ventilator Mechanical Ventilator 10/12/19 16:00 45 10/12/19 15:41 65 10/12/19 15:04 64 20 45 10/12/19 13:39 162/72 10/12/19 13:14 60 20 99 Mechanical Ventilator 45 86 20 45 10/12/19 12:48 65 10/12/19 12:20 62 162/72 10/12/19 12:00 Mechanical Ventilator Mechanical Ventilator Mechanical Ventilator 10/12/19 12:00 98.1 62 20 162/72 (102) 100 10/12/19 12:00 45 10/12/19 11:22 60 20 45 Intake and Output 10/12/19 10/13/19 19:00 07:00 Intake Total 550 ml 830 ml Output Total 300 ml Balance 550 ml 530 ml Intake Free Water 110 ml 300 ml Tube Feeding 440 ml 440 ml Other 90 ml Output Urine Total 300 ml Laboratory Tests 10/12/19 12:05: POC Whole Blood Glucose 101 10/12/19 16:45: POC Whole Blood Glucose 103 10/13/19 03:48: White Blood Count 7.2, Red Blood Count 3.28L, Hemoglobin 10.0L, Hematocrit 30.8L , Mean Corpuscular Volume 94, Mean Corpuscular Hemoglobin 30.3, Mean Corpuscular Hemoglobin Concent 32.4, Red Cell Distribution Width 14.8, Platelet Count 449, Mean Platelet Volume 5.3L, Neutrophils (%) (Auto) 72.1, Lymphocytes ( %) (Auto) 19.4L, Monocytes (%) (Auto) 6.6, Eosinophils (%) (Auto) 0.8, Basophils (%) (Auto) 1.1, Sodium Level 132L, Potassium Level 3.6, Chloride Level 98, Carbon Dioxide Level 23, Anion Gap 11, Blood Urea Nitrogen 81H, Creatinine 2.8H, Estimat Glomerular Filtration Rate 18.1, Glucose Level 111H, Uric Acid 7.1, Calcium Level 9.3, Phosphorus Level 4.6, Magnesium Level 3.2H, Total Bilirubin 0.3, Aspartate Amino Transf (AST/SGOT) 24, Alanine Aminotransferase (ALT/SGPT) 13, Alkaline Phosphatase 169H, C-Reactive Protein, Quantitative 4.7H, Pro-B-Type Natriuretic Peptide > 76890P, Total Protein 6.6, Albumin 1.7L, Globulin 4.9, Albumin/Globulin Ratio 0.3L Height (Feet): 5 Height (Inches): 5.00 Weight (Pounds): 148 General Appearance: no apparent distress EENT: other - On mechanical ventilator Cardiovascular: normal rate Respiratory/Chest: decreased breath sounds Abdomen: soft Objective No change Johnny Houston MD Oct 13, 2019 09:41
--- NOTE | 2019-10-13 10:37 | Pulmonology Progress Note ---
Subjective ROS Limited/Unobtainable: Yes Allergies: Coded Allergies: No Known Allergies (Unverified , 10/10/17) Subjective in [place] on vent AC with FiO2 45% awake and cooperative no signs of resp distress on current settings remains afebrile, no leucocytosis however during the first trail on CPAP 10/10 went to resp distress and placed back to current vent settings no trials done 10/11 Objective Last 24 Hour Vital Signs Date Time Temp Pulse Resp B/P (MAP) Pulse Ox O2 Delivery O2 Flow Rate FiO2 10/13/19 09:00 70 24 45 10/13/19 08:38 69 144/64 10/13/19 08:37 144/64 10/13/19 08:04 69 21 100 Mechanical Ventilator 45 69 21 45 10/13/19 08:00 Mechanical Ventilator Mechanical Ventilator Mechanical Ventilator 10/13/19 08:00 45 10/13/19 08:00 98.8 69 24 144/64 (90) 97 10/13/19 07:49 70 10/13/19 05:29 154/74 10/13/19 05:29 70 154/74 10/13/19 04:51 70 22 45 10/13/19 04:25 98.2 10/13/19 04:00 45 10/13/19 04:00 Mechanical Ventilator Mechanical Ventilator Mechanical Ventilator 10/13/19 04:00 98.4 68 20 154/74 (100) 100 10/13/19 04:00 63 10/13/19 03:17 67 20 45 10/13/19 01:02 70 22 99 Mechanical Ventilator 45 69 20 45 10/13/19 00:00 98.2 68 20 164/81 (108) 100 10/13/19 00:00 Mechanical Ventilator Mechanical Ventilator Mechanical Ventilator 10/13/19 00:00 63 10/13/19 00:00 45 10/12/19 23:44 68 164/81 10/12/19 22:49 64 21 45 10/12/19 21:36 152/79 10/12/19 20:56 66 23 45 10/12/19 20:10 66 152/79 10/12/19 20:00 Mechanical Ventilator Mechanical Ventilator Mechanical Ventilator 10/12/19 20:00 45 10/12/19 20:00 97.5 66 20 152/70 (97) 99 10/12/19 19:24 65 10/12/19 19:08 66 20 99 Mechanical Ventilator 45 67 20 45 10/12/19 17:10 156/69 10/12/19 17:09 69 156/69 10/12/19 16:41 69 20 45 10/12/19 16:00 98.2 65 20 156/69 (98) 98 10/12/19 16:00 Mechanical Ventilator Mechanical Ventilator Mechanical Ventilator 10/12/19 16:00 45 10/12/19 15:41 65 10/12/19 15:04 64 20 45 10/12/19 13:39 162/72 10/12/19 13:14 60 20 99 Mechanical Ventilator 45 86 20 45 10/12/19 12:48 65 10/12/19 12:20 62 162/72 10/12/19 12:00 Mechanical Ventilator Mechanical Ventilator Mechanical Ventilator 10/12/19 12:00 98.1 62 20 162/72 (102) 100 10/12/19 12:00 45 10/12/19 11:22 60 20 45 Intake and Output 10/12/19 10/13/19 19:00 07:00 Intake Total 550 ml 830 ml Output Total 300 ml Balance 550 ml 530 ml Intake Free Water 110 ml 300 ml Tube Feeding 440 ml 440 ml Other 90 ml Output Urine Total 300 ml Objective General Appearance: no apparent distress, bedridden middle age chronically ill looking female on vent AC 500-20- 45%, PEEP 5, awake, calm Lines, tubes and drains: left jugular HD catheter HEENT: normocephalic, atraumatic, anicteric, trach - Shiley #7 cuffed XLT, secretions small amount, yellow color , thick consistency Respiratory/Chest: no accessory muscle use, few isolated rhonchi Cardiovascular/Chest: normal rate, regular rhythm - SR on tele Abdomen: normal bowel sounds, non tender, soft, G tube Genitourinary/Rectal: Norman Extremities: no edema Skin Exam: warm/dry, multiple tattoos all over the body Neurologic: awake, no gross focal Musculoskeletal: atrophy - BLE Laboratory Tests 10/12/19 12:05: POC Whole Blood Glucose 101 10/12/19 16:45: POC Whole Blood Glucose 103 10/13/19 03:48: White Blood Count 7.2, Red Blood Count 3.28L, Hemoglobin 10.0L, Hematocrit 30.8L , Mean Corpuscular Volume 94, Mean Corpuscular Hemoglobin 30.3, Mean Corpuscular Hemoglobin Concent 32.4, Red Cell Distribution Width 14.8, Platelet Count 449, Mean Platelet Volume 5.3L, Neutrophils (%) (Auto) 72.1, Lymphocytes ( %) (Auto) 19.4L, Monocytes (%) (Auto) 6.6, Eosinophils (%) (Auto) 0.8, Basophils (%) (Auto) 1.1, Sodium Level 132L, Potassium Level 3.6, Chloride Level 98, Carbon Dioxide Level 23, Anion Gap 11, Blood Urea Nitrogen 81H, Creatinine 2.8H, Estimat Glomerular Filtration Rate 18.1, Glucose Level 111H, Uric Acid 7.1, Calcium Level 9.3, Phosphorus Level 4.6, Magnesium Level 3.2H, Total Bilirubin 0.3, Aspartate Amino Transf (AST/SGOT) 24, Alanine Aminotransferase (ALT/SGPT) 13, Alkaline Phosphatase 169H, C-Reactive Protein, Quantitative 4.7H, Pro-B-Type Natriuretic Peptide > 95104I, Total Protein 6.6, Albumin 1.7L, Globulin 4.9, Albumin/Globulin Ratio 0.3L Current Medications Medications (Trade) Dose Ordered Sig/Penny Route PRN Reason Start Time Stop Time Status Last Admin Dose Admin Acetaminophen (Tylenol) 325 mg Q6H PRN GT Temp >100.5 10/11/19 04:45 10/23/19 10:44 Albuterol/ Ipratropium (Albuterol/ Ipratropium) 3 ml Q6HRT HHN 10/11/19 07:00 10/14/19 12:59 10/13/19 07:54 Ascorbic Acid (Vitamin C) 500 mg DAILY ORAL 10/11/19 09:00 11/05/19 08:59 10/13/19 08:37 Chlorhexidine Gluconate (Ling-Hex 2%) 1 applic DAILY@2000 TOPIC 10/11/19 20:00 12/22/19 19:59 10/12/19 20:11 Clonidine HCl (Catapres TTS-3) 1 patch QWEEK TDERMAL 10/17/19 09:00 01/08/20 08:59 Daptomycin 250 mg/ Sodium Chloride 55 ml @ 100 mls/hr Q48H IV 10/11/19 16:00 10/16/19 15:59 10/11/19 17:37 Dextrose (Dextrose 50%) 25 ml Q30M PRN IV Hypoglycemia 10/11/19 04:30 01/03/20 18:29 Dextrose (Dextrose 50%) 50 ml Q30M PRN IV Hypoglycemia 10/11/19 04:30 01/03/20 18:29 Diltiazem HCl (Cardizem Tab) 90 mg Q6HR GT 10/11/19 06:00 11/09/19 11:59 10/13/19 05:29 Docusate Sodium (Colace) 100 mg Q8H GT 10/11/19 08:30 10/29/19 08:29 10/13/19 08:37 Epoetin Gelacio (Epoetin Gelacio(ESRD on dialysis)) 10,000 unit SUBQ 10/14/19 21:00 01/12/20 20:59 Haloperidol Lactate (Haldol) 5 mg Q6H PRN IM Agitation 10/11/19 05:00 11/22/19 10:59 10/11/19 12:34 Heparin Sodium (Porcine) (Heparin 5000 units/ml) 5,000 units EVERY 12 HOURS SUBQ 10/11/19 09:00 10/30/19 08:59 10/13/19 08:38 Insulin Aspart (NovoLOG) Q6HR SUBQ 10/11/19 06:00 01/03/20 20:59 Lansoprazole (Prevacid) 30 mg Q12HR GT 10/11/19 09:00 10/27/19 20:59 10/13/19 08:37 Lisinopril (PriniviL) 20 mg BID GT 10/11/19 09:00 11/08/19 17:59 10/13/19 08:37 Metoclopramide HCl (Reglan) 5 mg EVERY 6 HOURS GT 10/11/19 06:00 11/08/19 11:59 10/13/19 05:29 Metoprolol Tartrate (Lopressor) 25 mg Q12HR GT 10/11/19 09:00 01/07/20 20:59 10/13/19 08:38 Minoxidil (Loniten) 2.5 mg Q8HR ORAL 10/11/19 06:00 01/08/20 13:59 10/13/19 05:29 Morphine Sulfate (Morphine Sulfate) 2 mg Q4H PRN IVP For Pain 10/11/19 04:42 10/16/19 04:41 10/13/19 03:55 Polyethylene Glycol (Miralax) 17 gm BEDTIME ORAL 10/11/19 21:00 10/31/19 20:59 10/12/19 20:10 Risperidone (RisperDAL) 2 mg BEDTIME ORAL 10/11/19 21:00 11/19/19 20:59 10/12/19 20:10 Sertraline HCl (Zoloft) 100 mg BEDTIME GT 10/11/19 21:00 10/15/19 20:59 10/12/19 20:11 Sorbitol (sorbitoL) 30 ml EVERY 6 HOURS PRN GT Constipation 10/11/19 06:00 10/29/19 17:59 Vitamin B Complex/ Vit C/Folic Acid (Nephrovite) 1 tab DAILY ORAL 10/11/19 09:00 11/05/19 08:59 10/13/19 08:37 Zinc Sulfate (Zinc Sulfate) 220 mg DAILY ORAL 10/11/19 09:00 10/21/19 08:59 10/13/19 08:37 Assessment/Plan Assessment/Plan ASSESSMENT Acute on chronic hypoxemic respiratory failure ( trach dependent), now on vent Tracheostomy status, s/p change to cuffed trach Sepsis Pulmonary edema Pleural effusion -worsening left pl effusion s/p thoracentesis L pleural effusion 09/26 -900 ml Pneumonia with MDR Pseudomonas UTI CHF ? cardiorenal COPD Acute kidney injury and chronic kidney disease-requiring start of HD Hypertension Atrial fibrillation Moderate pulm HTN Moderate AR Dysphagia , feeding by G-tube Electrolyte abnormalities Anemia Toxic metabolic encephalopathy likely due to sepsis and ARF HTN PAF PLAN OF CARE now in [facility] on vent AC trach changed 8/4 pm from uncuffed to cuffed Shiley#[address] chest w/out contrast: - Bilateral pleural effusions, right greater than left, with bilateral lower lobe consolidation or volume loss. -Ground-glass densities in the upper lobes bilaterally. This is not specific. -Tracheostomy. -Increased superior mediastinal density. Stability of adenopathy cannot be excluded. -Atherosclerotic change. -Gastrostomy. -Ascites. -Left renal stent with left hydronephrosis and renal atrophy. VQ scan -> low probability for PE worsening resp status was due to need for HD, now after HD started, resp status improving, down to PEEP 5 and AC 20 trach care , pulmonary toilet Mucomyst was prior dc given lots of thin secretions, continue Duoneb prn rapid COVID 19 NGT x3 now off Fentanyl gtt since 10/09 FiO2 down to 45% last ABG stable 10/09 not tolerated CPAP trials 10/10 - went to resp distress not done 10/11 continue CPAP trials as tolerated may continue in subacute upon discharge s/p thoracentesis L pleural effusion 09/26 am -> 900 ml fluid analysis noted, unlikely empyema given small # of WBC fup with fluid cx ( apparently never sent despite orders) cytology -> NGT, no malignant cells aspiration precautions venous Duplex BLE -> NGT DVT prophylaxis pulm toilet, BP elevated BP regimen optimized as per nephro monitor volumes was on gentle IVF-> dc s/p prior diuretic-Lasix require initiation of HD continue further HD as per nephro with close monitoring of volumes, renal parameters and lytes -per nephro recs abx as per ID- s/p gent x 1, now on Vanco and Zerbaxa , completed 10/02 SCX 8/3 + Proteus, SCX 09/22 Pseudomonas MDR UCX /2 + Providencia , UCX 09/22 VRE 10-20 K only BCX 09/14 Staph epidermidis, BCX / NGT , BCX 09/22 and 09/26 - NGTD UCX 10/07 + VRE, Laura- per ID started on Dapto 10/10- ECHO with pEF , moderate pulm HTN and moderate AR BP management with current regimen of BB, Cardizem and Hydralazine, remains in SR monitor HH with goal to keep Hgb >7, heme on board on EPO supportive care pain management wound care bowel regimen stable for dc from pulm standpoint case discussed and evaluated by supervising physician Yara Castro NP Oct 13, 2019 10:37
[2019-10-13 12:00] VITALS: BP 154/71
--- NOTE | 2019-10-13 12:35 | Surgery Progress Note ---
Surgery Progress Note Subjective Symptoms: improved, tolerating diet, passing flatus, BM Objective Last 24 Hour Vital Signs Date Time Temp Pulse Resp B/P (MAP) Pulse Ox O2 Delivery O2 Flow Rate FiO2 10/13/19 12:23 82 154/71 10/13/19 12:07 Mechanical Ventilator Mechanical Ventilator Mechanical Ventilator 10/13/19 12:00 45 10/13/19 11:42 79 10/13/19 11:00 81 25 45 10/13/19 09:00 70 24 45 10/13/19 08:38 69 144/64 10/13/19 08:37 144/64 10/13/19 08:04 69 21 100 Mechanical Ventilator 45 69 21 45 10/13/19 08:00 Mechanical Ventilator Mechanical Ventilator Mechanical Ventilator 10/13/19 08:00 45 10/13/19 08:00 98.8 69 24 144/64 (90) 97 10/13/19 07:49 70 10/13/19 05:29 154/74 10/13/19 05:29 70 154/74 10/13/19 04:51 70 22 45 10/13/19 04:25 98.2 10/13/19 04:00 45 10/13/19 04:00 Mechanical Ventilator Mechanical Ventilator Mechanical Ventilator 10/13/19 04:00 98.4 68 20 154/74 (100) 100 10/13/19 04:00 63 10/13/19 03:17 67 20 45 10/13/19 01:02 70 22 99 Mechanical Ventilator 45 69 20 45 10/13/19 00:00 98.2 68 20 164/81 (108) 100 10/13/19 00:00 Mechanical Ventilator Mechanical Ventilator Mechanical Ventilator 10/13/19 00:00 63 10/13/19 00:00 45 10/12/19 23:44 68 164/81 10/12/19 22:49 64 21 45 10/12/19 21:36 152/79 10/12/19 20:56 66 23 45 10/12/19 20:10 66 152/79 10/12/19 20:00 Mechanical Ventilator Mechanical Ventilator Mechanical Ventilator 10/12/19 20:00 45 10/12/19 20:00 97.5 66 20 152/70 (97) 99 10/12/19 19:24 65 10/12/19 19:08 66 20 99 Mechanical Ventilator 45 67 20 45 10/12/19 17:10 156/69 10/12/19 17:09 69 156/69 10/12/19 16:41 69 20 45 10/12/19 16:00 98.2 65 20 156/69 (98) 98 10/12/19 16:00 Mechanical Ventilator Mechanical Ventilator Mechanical Ventilator 10/12/19 16:00 45 10/12/19 15:41 65 10/12/19 15:04 64 20 45 10/12/19 13:39 162/72 10/12/19 13:14 60 20 99 Mechanical Ventilator 45 86 20 45 10/12/19 12:48 65 I&O Intake and Output 10/12/19 10/13/19 19:00 07:00 Intake Total 550 ml 830 ml Output Total 300 ml Balance 550 ml 530 ml Intake Free Water 110 ml 300 ml Tube Feeding 440 ml 440 ml Other 90 ml Output Urine Total 300 ml Dressing: saturated Cardiovascular: RSR Respiratory: decreased breath sounds Abdomen: soft, non-tender, present bowel sounds, non-distended Extremities: no edema, no tenderness, no cyanosis Laboratory Tests Test 10/12/19 16:45 10/13/19 03:48 10/13/19 12:19 POC Whole Blood Glucose 103 MG/DL (74-106) 97 MG/DL (74-106) White Blood Count 7.2 K/UL (4.8-10.8) Red Blood Count 3.28 M/UL (4.20-5.40) L Hemoglobin 10.0 G/DL (12.0-16.0) L Hematocrit 30.8 % (37.0-47.0) L Mean Corpuscular Volume 94 FL (80-99) Mean Corpuscular Hemoglobin 30.3 PG (27.0-31.0) Mean Corpuscular Hemoglobin Concent 32.4 G/DL (32.0-36.0) Red Cell Distribution Width 14.8 % (11.6-14.8) Platelet Count 449 K/UL (150-450) Mean Platelet Volume 5.3 FL (6.5-10.1) L Neutrophils (%) (Auto) 72.1 % (45.0-75.0) Lymphocytes (%) (Auto) 19.4 % (20.0-45.0) L Monocytes (%) (Auto) 6.6 % (1.0-10.0) Eosinophils (%) (Auto) 0.8 % (0.0-3.0) Basophils (%) (Auto) 1.1 % (0.0-2.0) Sodium Level 132 MMOL/L (136-145) L Potassium Level 3.6 MMOL/L (3.5-5.1) Chloride Level 98 MMOL/L (98-107) Carbon Dioxide Level 23 MMOL/L (21-32) Anion Gap 11 mmol/L (5-15) Blood Urea Nitrogen 81 mg/dL (7-18) H Creatinine 2.8 MG/DL (0.55-1.30) H Estimat Glomerular Filtration Rate 18.1 mL/min (>60) Glucose Level 111 MG/DL (74-106) H Uric Acid 7.1 MG/DL (2.6-7.2) Calcium Level 9.3 MG/DL (8.5-10.1) Phosphorus Level 4.6 MG/DL (2.5-4.9) Magnesium Level 3.2 MG/DL (1.8-2.4) H Total Bilirubin 0.3 MG/DL (0.2-1.0) Aspartate Amino Transf (AST/SGOT) 24 U/L (15-37) Alanine Aminotransferase (ALT/SGPT) 13 U/L (12-78) Alkaline Phosphatase 169 U/L (46-116) H C-Reactive Protein, Quantitative 4.7 mg/dL (0.00-0.90) H Pro-B-Type Natriuretic Peptide > 89386 pg/mL (0-125) H Total Protein 6.6 G/DL (6.4-8.2) Albumin 1.7 G/DL (3.4-5.0) L Globulin 4.9 g/dL Albumin/Globulin Ratio 0.3 (1.0-2.7) L Plan Problems: (1) Anemia (2) Proteinuria (3) UTI (urinary tract infection) (4) ARF (acute renal failure) (5) ACS (acute coronary syndrome) (6) Respiratory failure, acute and chronic (7) HCAP (healthcare-associated pneumonia) (8) Abrasion of lip, initial encounter (9) COPD with exacerbation (10) Hypokalemia (11) Sepsis Assessment & Plan: Leukocytosis, anemia, abnormal labs. Renal insufficiency potentially dehydrated Abnormal LFTs alk phos elevated Urine noted significant bacteria likely UTI etiology Wound stable still requiring local care IV antibiotics per infectious disease Discussed with data clerk Dr. Berkowitz air mattress turn q2h nutritional tf will follow with recs thank you CT noted pending VQ scan - noted poor study low prob PE work respiratory increasing needs sedation weaning vent settings 80% peep 10 now comfortable Hd line in receiving HD plan for left thora 09/26 cont weaning vent as tolerated improving labs improved placement d/c planning (12) Chronic respiratory failure (13) Ascites (14) Bacteremia (15) Hypernatremia (16) Pleural effusion (17) Pacemaker (18) Aortic dissection, thoracic (19) Tracheostomy in place Assessment & Plan: trach stable no bleeding currently likely tongue etiology of mild oozing currently hemostatic without trauma (20) Feeding by G-tube Assessment & Plan: okay to resume tube feeds via g tube patent and functional dressings okay DAILY ESTIMATED NEEDS: Needs based on Pulmonary, wound 49kg 30-35 kcals/kg 8400-0252 total kcals 1.25-2 g protein/kg 61-98 g total protein Fluid per MD NUTRITION DIAGNOSIS: * Swallowing difficulty R/T dysphagia, respiratory status as evidenced by vent dep via T-collar, GT Dep. (CURRENT TF: Nepro @45ml/hr x 24 hrs) ENTERAL NUTRITION RECOMMENDATIONS: Nepro @ 40ml/hr x 24 hrs to provide 960ml, 1728kcal, 78g prot, 698ml free water * Rec LOWER current rate to 40ml/hr for 24 hrs run. * Water flush of 100ml q 6 hrs per orders * HOB over 30 degrees ADDITIONAL RECOMMENDATIONS: * Per SNF: HT=63", [id number] -> rec calibrated bedscale wt * Pt on Nepro MEDICAL RADIATION DOSIMETRIST, possible h/o electrolyte imbalance -> monitor lytes closely (K low at this time) * RETAIL ACCOUNT REPRESENTATIVE eval for oral grat if appropriate * F/up w/ WC eval-> add FRANKLIN in 4oz H20 BID via GT (21) JAVIER (acute kidney injury) (22) Elevated alkaline phosphatase level Assessment & Plan: noted on labs trend US ordered will follow with recs thank you (23) Acute encephalopathy (24) GT CLOGGED (25) Sacral decubitus ulcer, stage IV Assessment & Plan: Pt presented on admission with Full thickness stage 4 Sacral Pressure injury which extends into R gluteal cheek. Base of wound is granular with bone exposure at base of sacrococcygeal.(L)10.5cm x (W06.5cm x (D) 2.8cm , undermining 11-3 by 3.6cm @12 o'clock. small amt serosanguineous exudate noted . Freedom epithelial along edges bordered by darker skin tone without erythema. Resolving Pressure injury L ischium. Base of wound is 95% pink epithelial ,5% noni at center base of wound. No exudate noted. Both heels are boggy with non-Blanching erythema. Tx.plan: Cleanse Sacral wound with Saline. Loosely pack with Hydrogel impregnated Kerlix. Apply Moisture Barrier Periwound. Cover with Optifoam drsg Daily and prn. Apply Moisture Barrier paste to L Ischium. Cover with Optifoam drsg. Changee very 3 days and prn. Apply Cavilon Skin Barrier to both heels. Cover each heel with Optifoam drsgs. Change every 7 days and prn. Reposition at least every 2hours or as tolerated. Off-load heels with pillow. APM/MAXWELL Mattress overlay. Sacral wound resolving. Wound is smaller in size with less depth and undermining (L)8.5cm x (W)5cm x (D)1.3cm, undermining clockwise 11-3 by 2.1cm @ 12o'clock. Base of wound is pink and moist, small area of bone exposure at base. Small amt. seropurulent exudate noted. No odor noted. Periwound without evidence of further skin breakdown noted. Wound Tx. are effective and continued as ordered. Al wound prevention protocols continued as care-planned. Tx.Plan:Cleanse sacral wound with Saline. Loosely pack with Hydrogel impregnated kerlix. Apply Moisture Barrier Paste periwound. Cover with Optifoam drsg Daily and prn. Apply Cavilon Skin Barrier to both heels and malleoli. Cover eachsite with Optifoam drsgs. Change every 7 days and prn. Reposition at least every 2hours or as tolerated. Off-load heels with pillow. APM/Maxwell Mattress overlay. Lane Saavedra Oct 13, 2019 12:35
[2019-10-13 16:00] VITALS: BP 145/80
[2019-10-13] MEDS: DAPTOmycin 250 MG in NS 55 ML IV SCH (16:13)
[2019-10-13] MEDS ORDERED: NS 275ml ONE (17:20)
[2019-10-13 20:00] VITALS: BP 142/81
[2019-10-13] MEDS: Dyna-Hex 2% Top Sol 2oz TOPIC SCH (20:39)
[2019-10-13] MEDS: Sertraline 100mg tab GT SCH (20:40)
[2019-10-13] MEDS: Miralax 17gm pkt ORAL SCH (20:40)
[2019-10-14] VITALS (8 sets, daily range): BP systolic 124–181; BP diastolic 55–90
[2019-10-14] MEDS: Albuterol/Ipratropium 3ml neb HHN SCH ×3 (00:47→12:30)
[2019-10-14] MEDS: Morphine Sulfate 2mg/ml Inj(IV/IM USE ONLY) IVP PRN ×3 (02:35→14:17)
[2019-10-14] MEDS: Metoclopramide 10mg/10ml Liq GT SCH ×3 (05:20→17:23)
[2019-10-14] MEDS: Minoxidil 2.5mg tab ORAL SCH ×3 (05:21→22:58)
[2019-10-14] MEDS: dilTIAZem HCl 90mg tab GT SCH ×3 (05:22→17:23)
[2019-10-14] MEDS: NovoLOG Insulin Flexpen SUBQ SCH ×4 (05:22→17:13)
--- NOTE | 2019-10-14 07:19 | Hematology/Onc Progress Note ---
Assessment/Plan Assessment/Plan Assessment and Recs # Leukocytosis, now with gram positive bacteremias well as pna noted --> historically --> PPM site (pocket) infection (redness and pain, bacteremia) and likely pocket abscess - no vegetation seen on ABBIE --> is s'p pm removal and also pocket infection is better --> per cards recs in re to tach/davis --> wbc 15-->19-->17-->15-->13->12-->13-->12>13-->18-->9-->7 --> ABX cefepime/levaquin--> vanc/angelo-> daptomycin --> ID recs are noted # Anemia of chronic disease due to underlying chronic medical issues, multifactorial --> Anemia workup has been reviewed, cw acd --> No evidence of hemolysis is noted, peripheral smear has been reviewed. --> Hgb goal >7. Transfuse prn. --> Epogen started --> Medications have been reviewed --> low threshold for gi evaluation in case has occult + --> hgb 7.1-->7.8-->8.9->9.2-->8.5-->9.7-->10-->8.8-->9.6-->8.7->8.6-->7.2->8.7- >9.1-->9.2-->9-->8.7-->9.3-->9.8-->10 --> 1 unit prbc 09/27 # Thrombocytois is likely reactive process, is s/p infection --> plt trend 610k-->706k-->354 --> p smear reviewed # Acute hypoxic respiratory failure s/p intubation 11/23- ?ARDS --> on vent/trach # Gram positive bacteremia- real bacteremia- 2ry to above and probable PNA --> per id care # JAVIER initially >2 --> on ivfs # Elevated d-dimer --> venous duplex and v/q scan # Dysphagia s/p peg # Thoracic aortic dissection s/p repair early 2017 # Psychiatric history on ativan/haldol # [place] resident # Dvt ppx --> heparin sq The timing of this note does not necessarily reflect the time of the patient was seen. Greatly appreciate consultation. Subjective Constitutional: Denies: no symptoms, chills, fever, malaise, weakness, other HEENT: Denies: no symptoms, eye pain, blurred vision, tearing, double vision, ear pain, ear discharge, nose pain, nose congestion, throat pain, throat swelling, mouth pain, mouth swelling, other Cardiovascular: Denies: no symptoms, chest pain, edema, irregular heart rate, lightheadedness, palpitations, syncope, other Respiratory: Denies: no symptoms, cough, shortness of breath, SOB with excertion, SOB at rest, sputum, wheezing, other Gastrointestinal/Abdominal: Denies: no symptoms, abdomen distended, abdominal pain, black stools, tarry stools, blood in stool, constipated, diarrhea, difficulty swallowing, nausea, poor appetite, poor fluid intake, rectal bleeding , vomiting, other Endocrine: Denies: no symptoms, excessive sweating, flushing, intolerance to cold, intolerance to heat, increased hunger, increased thirst, increased urine, unexplained weight gain, unexplained weight loss, other Allergies: Coded Allergies: No Known Allergies (Unverified , 10/10/17) Subjective 09/16 on vent now, consulted in am pulm, on vent setting, labs noted, hep sq 09/17 meds noted, cbc noted, labs noted, no bleeding 09/18 is to undergo potential v/q scan given abg, labs noted, resless, on ativan, to get haldol today, roman ramesh 09/19 remains agitated, covering, with sacral wound seeping, likely cause of anemia, roman ramesh 09/26 restless, remains agitated, gtube ripped, eval with rn, and ifeoma consulted 09/27 remains on vent, agitated, seen by gi, hgb low, roman George to transfuse 1 unit prbc 09/28 meds noted, no bleeding, on vent, s/p blood tranfusion, cbc pending, roman ramesh 09/29 remains in the icu, roman rn in the am, agitated, on versed, fentanyl, restraints 09/30 in icu, trach to vent, on gtube feeds, fentanyl, agitated 10/01 in icu, roman Ayoub rn, no bleeding, sleeping, labs noted, hgb >9 10/02 sedated in icu, is on vent, roman rn, more alert and more conversive with face grimaces 10/03 labs have been reviewed, no bleeding, icu, meds reviewed, on fentanyl and versed, to consult psych 10/05 remains on fentanyl, also with restraints, no bleeding, cbc ordered 10/06 remains obtunded, though reactive when proded, labs pending from am 10/07 hypertensive, asleep, no bleeding, roman rn, no major night sweats\ 10/08 formula leaking from gtube site, no bleeding, with some minor residual 10/09 remains on gtube feeds, on lactulose, no major changes, confused but nods 10/10 labs reviewed, lactulose discontinued as having diarrhea, no bleeding 10/12 meds reviewed, no bleeding, heparin given, roman Starr rn in am, comfortable 10/13 labs are noted, no bleeding, cbc is ordered for today, somewhat agitated Objective Objective Current Medications Medications (Trade) Dose Ordered Sig/Penny Route PRN Reason Start Time Stop Time Status Last Admin Dose Admin Acetaminophen (Tylenol) 325 mg Q6H PRN GT Temp >100.5 10/11/19 04:45 10/23/19 10:44 Albuterol/ Ipratropium (Albuterol/ Ipratropium) 3 ml Q6HRT HHN 10/11/19 07:00 10/14/19 12:59 10/14/19 00:47 Ascorbic Acid (Vitamin C) 500 mg DAILY ORAL 10/11/19 09:00 11/05/19 08:59 10/13/19 08:37 Chlorhexidine Gluconate (Ling-Hex 2%) 1 applic DAILY@2000 TOPIC 10/11/19 20:00 12/22/19 19:59 10/13/19 20:39 Clonidine HCl (Catapres TTS-3) 1 patch QWEEK TDERMAL 10/17/19 09:00 01/08/20 08:59 Daptomycin 250 mg/ Sodium Chloride 55 ml @ 100 mls/hr Q48H IV 10/11/19 16:00 10/16/19 15:59 10/13/19 16:13 Dextrose (Dextrose 50%) 25 ml Q30M PRN IV Hypoglycemia 10/11/19 04:30 01/03/20 18:29 Dextrose (Dextrose 50%) 50 ml Q30M PRN IV Hypoglycemia 10/11/19 04:30 01/03/20 18:29 Diltiazem HCl (Cardizem Tab) 90 mg Q6HR GT 10/11/19 06:00 11/09/19 11:59 10/14/19 05:22 Docusate Sodium (Colace) 100 mg Q8H GT 10/11/19 08:30 10/29/19 08:29 10/13/19 23:47 Epoetin Gelacio (Epoetin Gelacio(ESRD on dialysis)) 10,000 unit MON- SUBQ 10/14/19 21:00 01/12/20 20:59 Haloperidol Lactate (Haldol) 5 mg Q6H PRN IM Agitation 10/11/19 05:00 11/22/19 10:59 10/11/19 12:34 Heparin Sodium (Porcine) (Heparin 5000 units/ml) 5,000 units EVERY 12 HOURS SUBQ 10/11/19 09:00 10/30/19 08:59 10/13/19 08:38 Insulin Aspart (NovoLOG) Q6HR SUBQ 10/11/19 06:00 01/03/20 20:59 Lansoprazole (Prevacid) 30 mg Q12HR GT 10/11/19 09:00 10/27/19 20:59 10/13/19 21:19 Lisinopril (PriniviL) 20 mg BID GT 10/11/19 09:00 11/08/19 17:59 10/13/19 17:30 Metoclopramide HCl (Reglan) 5 mg EVERY 6 HOURS GT 10/11/19 06:00 11/08/19 11:59 10/14/19 05:20 Metoprolol Tartrate (Lopressor) 25 mg Q12HR GT 10/11/19 09:00 01/07/20 20:59 10/13/19 20:40 Minoxidil (Loniten) 2.5 mg Q8HR ORAL 10/11/19 06:00 01/08/20 13:59 10/14/19 05:21 Morphine Sulfate (Morphine Sulfate) 2 mg Q4H PRN IVP For Pain 10/11/19 04:42 10/16/19 04:41 10/14/19 02:35 Polyethylene Glycol (Miralax) 17 gm BEDTIME ORAL 10/11/19 21:00 10/31/19 20:59 10/13/19 20:40 Risperidone (RisperDAL) 2 mg BEDTIME ORAL 10/11/19 21:00 11/19/19 20:59 10/13/19 20:40 Sertraline HCl (Zoloft) 100 mg BEDTIME GT 10/11/19 21:00 10/15/19 20:59 10/13/19 20:40 Sorbitol (sorbitoL) 30 ml EVERY 6 HOURS PRN GT Constipation 10/11/19 06:00 10/29/19 17:59 Vitamin B Complex/ Vit C/Folic Acid (Nephrovite) 1 tab DAILY ORAL 10/11/19 09:00 11/05/19 08:59 10/13/19 08:37 Zinc Sulfate (Zinc Sulfate) 220 mg DAILY ORAL 10/11/19 09:00 10/21/19 08:59 10/13/19 08:37 Last 24 Hour Vital Signs Date Time Temp Pulse Resp B/P (MAP) Pulse Ox O2 Delivery O2 Flow Rate FiO2 10/14/19 05:22 76 152/88 10/14/19 05:21 152/88 10/14/19 05:02 77 24 45 10/14/19 04:00 98.0 77 20 155/90 (111) 93 10/14/19 04:00 73 10/14/19 04:00 45 10/14/19 04:00 Mechanical Ventilator Mechanical Ventilator Mechanical Ventilator 10/14/19 02:44 81 21 45 10/14/19 00:47 68 20 98 Mechanical Ventilator 45 68 20 45 10/14/19 00:00 97.3 71 20 152/88 (109) 96 10/14/19 00:00 Mechanical Ventilator Mechanical Ventilator Mechanical Ventilator 10/13/19 23:50 70 10/13/19 23:48 73 152/80 10/13/19 22:30 78 24 45 10/13/19 21:20 142/73 10/13/19 20:40 75 145/69 10/13/19 20:40 74 25 45 10/13/19 20:00 45 10/13/19 20:00 Mechanical Ventilator Mechanical Ventilator Mechanical Ventilator 10/13/19 20:00 97.5 80 20 142/81 (101) 99 10/13/19 19:31 69 10/13/19 18:56 68 22 99 Mechanical Ventilator 45 69 21 45 10/13/19 17:30 145/80 10/13/19 17:30 97 145/80 10/13/19 16:55 71 20 45 10/13/19 16:42 45 10/13/19 16:37 Mechanical Ventilator Mechanical Ventilator Mechanical Ventilator 10/13/19 16:00 98.9 82 22 145/80 (101) 97 10/13/19 15:20 82 10/13/19 15:05 82 26 45 10/13/19 14:04 153/81 10/13/19 13:49 79 23 100 Mechanical Ventilator 45 79 23 45 10/13/19 12:23 82 154/71 10/13/19 12:07 Mechanical Ventilator Mechanical Ventilator Mechanical Ventilator 10/13/19 12:00 97.5 80 24 154/71 (98) 99 10/13/19 12:00 45 10/13/19 11:42 79 10/13/19 11:00 81 25 45 10/13/19 09:00 70 24 45 10/13/19 08:38 69 144/64 10/13/19 08:37 144/64 10/13/19 08:04 69 21 100 Mechanical Ventilator 45 69 21 45 10/13/19 08:00 Mechanical Ventilator Mechanical Ventilator Mechanical Ventilator 10/13/19 08:00 45 10/13/19 08:00 98.8 69 24 144/64 (90) 97 10/13/19 07:49 70 10/13/19 05:29 154/74 10/13/19 05:29 70 154/74 10/13/19 04:51 70 22 45 10/13/19 04:25 98.2 10/13/19 04:00 45 10/13/19 04:00 Mechanical Ventilator Mechanical Ventilator Mechanical Ventilator 10/13/19 04:00 98.4 68 20 154/74 (100) 100 10/13/19 04:00 63 10/13/19 03:17 67 20 45 10/13/19 01:02 70 22 99 Mechanical Ventilator 45 69 20 45 10/13/19 00:00 98.2 68 20 164/81 (108) 100 10/13/19 00:00 Mechanical Ventilator Mechanical Ventilator Mechanical Ventilator 10/13/19 00:00 63 10/13/19 00:00 45 10/12/19 23:44 68 164/81 10/12/19 22:49 64 21 45 10/12/19 21:36 152/79 10/12/19 20:56 66 23 45 10/12/19 20:10 66 152/79 10/12/19 20:00 Mechanical Ventilator Mechanical Ventilator Mechanical Ventilator 10/12/19 20:00 45 10/12/19 20:00 97.5 66 20 152/70 (97) 99 10/12/19 19:24 65 10/12/19 19:08 66 20 99 Mechanical Ventilator 45 67 20 45 10/12/19 17:10 156/69 10/12/19 17:09 69 156/69 10/12/19 16:41 69 20 45 10/12/19 16:00 98.2 65 20 156/69 (98) 98 10/12/19 16:00 Mechanical Ventilator Mechanical Ventilator Mechanical Ventilator 10/12/19 16:00 45 10/12/19 15:41 65 10/12/19 15:04 64 20 45 10/12/19 13:39 162/72 10/12/19 13:14 60 20 99 Mechanical Ventilator 45 86 20 45 10/12/19 12:48 65 10/12/19 12:20 62 162/72 10/12/19 12:00 Mechanical Ventilator Mechanical Ventilator Mechanical Ventilator 10/12/19 12:00 98.1 62 20 162/72 (102) 100 10/12/19 12:00 45 10/12/19 11:22 60 20 45 10/12/19 08:59 67 22 45 10/12/19 08:26 66 153/76 10/12/19 08:26 153/76 10/12/19 08:00 68 10/12/19 08:00 45 10/12/19 08:00 Mechanical Ventilator Mechanical Ventilator Mechanical Ventilator 10/12/19 07:58 98.9 66 24 153/76 (101) 98 Intake and Output 10/13/19 10/14/19 19:00 07:00 Intake Total 745 ml 490 ml Output Total 250 ml Balance 495 ml 490 ml Intake Free Water 30 ml 130 ml IV Total 55 ml Tube Feeding 480 ml 360 ml Other 180 ml Output Urine Total 250 ml Labs Test 10/11/19 11:39 10/11/19 17:03 10/11/19 17:36 10/11/19 23:15 POC Whole Blood Glucose 109 MG/DL (74-106) Test 10/12/19 02:40 10/12/19 05:25 10/12/19 12:05 10/12/19 16:45 White Blood Count 7.5 K/UL (4.8-10.8) Red Blood Count 3.76 M/UL (4.20-5.40) Hemoglobin 11.3 G/DL (12.0-16.0) Hematocrit 34.8 % (37.0-47.0) Mean Corpuscular Volume 93 FL (80-99) Mean Corpuscular Hemoglobin 30.1 PG (27.0-31.0) Mean Corpuscular Hemoglobin Concent 32.5 G/DL (32.0-36.0) Red Cell Distribution Width 14.2 % (11.6-14.8) Platelet Count 492 K/UL (150-450) Mean Platelet Volume 5.3 FL (6.5-10.1) Neutrophils (%) (Auto) 71.9 % (45.0-75.0) Lymphocytes (%) (Auto) 19.3 % (20.0-45.0) Monocytes (%) (Auto) 5.4 % (1.0-10.0) Eosinophils (%) (Auto) 2.6 % (0.0-3.0) Basophils (%) (Auto) 0.9 % (0.0-2.0) Sodium Level 132 MMOL/L (136-145) Potassium Level 3.4 MMOL/L (3.5-5.1) Chloride Level 97 MMOL/L (98-107) Carbon Dioxide Level 23 MMOL/L (21-32) Anion Gap 12 mmol/L (5-15) Blood Urea Nitrogen 81 mg/dL (7-18) Creatinine 2.8 MG/DL (0.55-1.30) Estimat Glomerular Filtration Rate 18.1 mL/min (>60) Glucose Level 122 MG/DL (74-106) Calcium Level 9.7 MG/DL (8.5-10.1) Phosphorus Level 4.3 MG/DL (2.5-4.9) Total Bilirubin 0.3 MG/DL (0.2-1.0) Aspartate Amino Transf (AST/SGOT) 37 U/L (15-37) Alanine Aminotransferase (ALT/SGPT) 14 U/L (12-78) Alkaline Phosphatase 181 U/L (46-116) Total Creatine Kinase 109 U/L (26-308) C-Reactive Protein, Quantitative 6.4 mg/dL (0.00-0.90) Pro-B-Type Natriuretic Peptide > 00451 pg/mL (0-125) Total Protein 7.0 G/DL (6.4-8.2) Albumin 1.8 G/DL (3.4-5.0) Globulin 5.2 g/dL Albumin/Globulin Ratio 0.3 (1.0-2.7) POC Whole Blood Glucose 114 MG/DL (74-106) 101 MG/DL (74-106) 103 MG/DL (74-106) Test 10/13/19 03:48 10/13/19 12:19 10/13/19 17:24 10/13/19 23:51 White Blood Count 7.2 K/UL (4.8-10.8) Red Blood Count 3.28 M/UL (4.20-5.40) Hemoglobin 10.0 G/DL (12.0-16.0) Hematocrit 30.8 % (37.0-47.0) Mean Corpuscular Volume 94 FL (80-99) Mean Corpuscular Hemoglobin 30.3 PG (27.0-31.0) Mean Corpuscular Hemoglobin Concent 32.4 G/DL (32.0-36.0) Red Cell Distribution Width 14.8 % (11.6-14.8) Platelet Count 449 K/UL (150-450) Mean Platelet Volume 5.3 FL (6.5-10.1) Neutrophils (%) (Auto) 72.1 % (45.0-75.0) Lymphocytes (%) (Auto) 19.4 % (20.0-45.0) Monocytes (%) (Auto) 6.6 % (1.0-10.0) Eosinophils (%) (Auto) 0.8 % (0.0-3.0) Basophils (%) (Auto) 1.1 % (0.0-2.0) Sodium Level 132 MMOL/L (136-145) Potassium Level 3.6 MMOL/L (3.5-5.1) Chloride Level 98 MMOL/L (98-107) Carbon Dioxide Level 23 MMOL/L (21-32) Anion Gap 11 mmol/L (5-15) Blood Urea Nitrogen 81 mg/dL (7-18) Creatinine 2.8 MG/DL (0.55-1.30) Estimat Glomerular Filtration Rate 18.1 mL/min (>60) Glucose Level 111 MG/DL (74-106) Uric Acid 7.1 MG/DL (2.6-7.2) Calcium Level 9.3 MG/DL (8.5-10.1) Phosphorus Level 4.6 MG/DL (2.5-4.9) Magnesium Level 3.2 MG/DL (1.8-2.4) Total Bilirubin 0.3 MG/DL (0.2-1.0) Aspartate Amino Transf (AST/SGOT) 24 U/L (15-37) Alanine Aminotransferase (ALT/SGPT) 13 U/L (12-78) Alkaline Phosphatase 169 U/L (46-116) C-Reactive Protein, Quantitative 4.7 mg/dL (0.00-0.90) Pro-B-Type Natriuretic Peptide > 24077 pg/mL (0-125) Total Protein 6.6 G/DL (6.4-8.2) Albumin 1.7 G/DL (3.4-5.0) Globulin 4.9 g/dL Albumin/Globulin Ratio 0.3 (1.0-2.7) POC Whole Blood Glucose 97 MG/DL (74-106) 96 MG/DL (74-106) 107 MG/DL (74-106) Test 10/14/19 05:19 Height (Feet): 5 Height (Inches): 5.00 Weight (Pounds): 149 Objective Physical Exam: Vitals: reviewed General: NAD HEENT: nc, at Neck: supple ++tracn/vent Chest: clear breath sounds bilaterally Cardiovascular: RRR, no s3, s4 Abdomen: soft, nontender, nd +gtube Extremities: no cce, normal range of motion Neuro: alert Evan Muhammad MD Oct 14, 2019 07:19
[2019-10-14] MEDS: Nephrovite tab (Rena-Vite) ORAL SCH (08:49)
[2019-10-14] MEDS: Docusate 100mg/10ml Liq GT SCH ×3 (08:49→22:58)
[2019-10-14] MEDS: Ascorbic Acid 500mg tab ORAL SCH (08:49)
[2019-10-14] MEDS: Zinc Sulfate 220mg ORAL SCH (08:51)
[2019-10-14] MEDS: Lisinopril 20mg tab GT SCH ×2 (09:00→17:23)
--- NOTE | 2019-10-14 09:02 | General Progress Note ---
Assessment/Plan Problem List: (1) S/P aortic dissection repair ICD Codes: Z98.890 - Other specified postprocedural states SNOMED: 119226328, 095598294 (2) Sacral decubitus ulcer, stage IV ICD Codes: L89.154 - Pressure ulcer of sacral region, stage 4 SNOMED: 676030550, 022557763 (3) Anemia ICD Codes: D64.9 - Anemia, unspecified SNOMED: 970631359 (4) GT CLOGGED (5) Feeding by G-tube ICD Codes: Z93.1 - Gastrostomy status SNOMED: 070217043, 321682046 (6) Tracheostomy in place ICD Codes: Z93.0 - Tracheostomy status SNOMED: 148058452 (7) Pacemaker ICD Codes: Z95.0 - Presence of cardiac pacemaker SNOMED: 268620283 (8) Chronic respiratory failure ICD Codes: J96.10 - Chronic respiratory failure, unspecified whether with hypoxia or hypercapnia SNOMED: 45573404 Status: stable, other - Mood has improved he is able to smile there is no continuous tearing overall she looks better today energy looking the last several days continue with the same management Assessment/Plan: GTF D/W the nurse at the bedside monitor for residuals repeat labs dc planning Subjective ROS Limited/Unobtainable: No Allergies: Coded Allergies: No Known Allergies (Unverified , 10/10/17) Objective Last 24 Hour Vital Signs Date Time Temp Pulse Resp B/P (MAP) Pulse Ox O2 Delivery O2 Flow Rate FiO2 10/14/19 08:00 98.1 70 25 139/63 (88) 94 10/14/19 07:24 78 20 98 45 78 20 45 10/14/19 05:22 76 152/88 10/14/19 05:21 152/88 10/14/19 05:02 77 24 45 10/14/19 04:00 98.0 77 20 155/90 (111) 93 10/14/19 04:00 73 10/14/19 04:00 45 10/14/19 04:00 Mechanical Ventilator Mechanical Ventilator Mechanical Ventilator 10/14/19 02:44 81 21 45 10/14/19 00:47 68 20 98 Mechanical Ventilator 45 68 20 45 10/14/19 00:00 97.3 71 20 152/88 (109) 96 10/14/19 00:00 Mechanical Ventilator Mechanical Ventilator Mechanical Ventilator 10/13/19 23:50 70 10/13/19 23:48 73 152/80 10/13/19 22:30 78 24 45 10/13/19 21:20 142/73 10/13/19 20:40 75 145/69 10/13/19 20:40 74 25 45 10/13/19 20:00 45 10/13/19 20:00 Mechanical Ventilator Mechanical Ventilator Mechanical Ventilator 10/13/19 20:00 97.5 80 20 142/81 (101) 99 10/13/19 19:31 69 10/13/19 18:56 68 22 99 Mechanical Ventilator 45 69 21 45 10/13/19 17:30 145/80 10/13/19 17:30 97 145/80 10/13/19 16:55 71 20 45 10/13/19 16:42 45 10/13/19 16:37 Mechanical Ventilator Mechanical Ventilator Mechanical Ventilator 10/13/19 16:00 98.9 82 22 145/80 (101) 97 10/13/19 15:20 82 10/13/19 15:05 82 26 45 10/13/19 14:04 153/81 10/13/19 13:49 79 23 100 Mechanical Ventilator 45 79 23 45 10/13/19 12:23 82 154/71 10/13/19 12:07 Mechanical Ventilator Mechanical Ventilator Mechanical Ventilator 10/13/19 12:00 97.5 80 24 154/71 (98) 99 10/13/19 12:00 45 10/13/19 11:42 79 10/13/19 11:00 81 25 45 Intake and Output 10/13/19 10/14/19 19:00 07:00 Intake Total 745 ml 660 ml Output Total 250 ml 500 ml Balance 495 ml 160 ml Intake Free Water 30 ml 180 ml IV Total 55 ml Tube Feeding 480 ml 480 ml Other 180 ml Output Urine Total 250 ml 500 ml Laboratory Tests 10/13/19 12:19: POC Whole Blood Glucose 97 10/13/19 17:24: POC Whole Blood Glucose 96 10/13/19 23:51: POC Whole Blood Glucose 107H 10/14/19 05:19: POC Whole Blood Glucose [Pending] Height (Feet): 5 Height (Inches): 5.00 Weight (Pounds): 149 General Appearance: no apparent distress EENT: normal ENT inspection Neck: supple Cardiovascular: normal rate Respiratory/Chest: decreased breath sounds Abdomen: normal bowel sounds, non tender, soft Extremities: non-tender Inder Mccauley MD Oct 14, 2019 09:02
[2019-10-14] MEDS: Heparin 5000 units/ml inj SUBQ SCH ×2 (09:08→20:59)
--- NOTE | 2019-10-14 09:38 | Pulmonology Progress Note ---
Yara Castro OTA 10/14/19 0938: Subjective ROS Limited/Unobtainable: Yes Allergies: Coded Allergies: No Known Allergies (Unverified , 10/10/17) Subjective in [place] on vent AC with FiO2 45% having HD now no signs of resp distress on current settings remains afebrile, no leucocytosis however during the first trail on CPAP 10/10 went to resp distress and placed back to current vent settings Objective Last 24 Hour Vital Signs Date Time Temp Pulse Resp B/P (MAP) Pulse Ox O2 Delivery O2 Flow Rate FiO2 10/14/19 08:00 98.1 70 25 139/63 (88) 94 10/14/19 07:24 78 20 98 45 78 20 45 10/14/19 05:22 76 152/88 10/14/19 05:21 152/88 10/14/19 05:02 77 24 45 10/14/19 04:00 98.0 77 20 155/90 (111) 93 10/14/19 04:00 73 10/14/19 04:00 45 10/14/19 04:00 Mechanical Ventilator Mechanical Ventilator Mechanical Ventilator 10/14/19 02:44 81 21 45 10/14/19 00:47 68 20 98 Mechanical Ventilator 45 68 20 45 10/14/19 00:00 97.3 71 20 152/88 (109) 96 10/14/19 00:00 Mechanical Ventilator Mechanical Ventilator Mechanical Ventilator 10/13/19 23:50 70 10/13/19 23:48 73 152/80 10/13/19 22:30 78 24 45 10/13/19 21:20 142/73 10/13/19 20:40 75 145/69 10/13/19 20:40 74 25 45 10/13/19 20:00 45 10/13/19 20:00 Mechanical Ventilator Mechanical Ventilator Mechanical Ventilator 10/13/19 20:00 97.5 80 20 142/81 (101) 99 10/13/19 19:31 69 10/13/19 18:56 68 22 99 Mechanical Ventilator 45 69 21 45 10/13/19 17:30 145/80 10/13/19 17:30 97 145/80 10/13/19 16:55 71 20 45 10/13/19 16:42 45 10/13/19 16:37 Mechanical Ventilator Mechanical Ventilator Mechanical Ventilator 8/30/20 16:00 98.9 82 22 145/80 (101) 97 10/13/19 15:20 82 10/13/19 15:05 82 26 45 10/13/19 14:04 153/81 10/13/19 13:49 79 23 100 Mechanical Ventilator 45 79 23 45 10/13/19 12:23 82 154/71 10/13/19 12:07 Mechanical Ventilator Mechanical Ventilator Mechanical Ventilator 10/13/19 12:00 97.5 80 24 154/71 (98) 99 10/13/19 12:00 45 10/13/19 11:42 79 10/13/19 11:00 81 25 45 Intake and Output 10/13/19 10/14/19 19:00 07:00 Intake Total 745 ml 660 ml Output Total 250 ml 500 ml Balance 495 ml 160 ml Intake Free Water 30 ml 180 ml IV Total 55 ml Tube Feeding 480 ml 480 ml Other 180 ml Output Urine Total 250 ml 500 ml Objective General Appearance: no apparent distress, bedridden middle age chronically ill looking female on vent AC 500-20- 45%, PEEP 5, awake, calm Lines, tubes and drains: left jugular HD catheter HEENT: normocephalic, atraumatic, anicteric, trach - Shiley #7 cuffed XLT, secretions small amount, yellow color , thick consistency Respiratory/Chest: no accessory muscle use, few isolated rhonchi Cardiovascular/Chest: normal rate, regular rhythm - SR on tele Abdomen: normal bowel sounds, non tender, soft, G tube Genitourinary/Rectal: Norman Extremities: no edema Skin Exam: warm/dry, multiple tattoos all over the body Neurologic: awake, no gross focal Musculoskeletal: atrophy - BLE Laboratory Tests 10/13/19 12:19: POC Whole Blood Glucose 97 10/13/19 17:24: POC Whole Blood Glucose 96 10/13/19 23:51: POC Whole Blood Glucose 107H 10/14/19 05:19: POC Whole Blood Glucose [Pending] Current Medications Medications (Trade) Dose Ordered Sig/Penny Route PRN Reason Start Time Stop Time Status Last Admin Dose Admin Acetaminophen (Tylenol) 325 mg Q6H PRN GT Temp >100.5 10/11/19 04:45 10/23/19 10:44 Albuterol/ Ipratropium (Albuterol/ Ipratropium) 3 ml Q6HRT N 10/11/19 07:00 10/14/19 12:59 10/14/19 07:24 Ascorbic Acid (Vitamin C) 500 mg DAILY ORAL 10/11/19 09:00 11/05/19 08:59 10/14/19 08:49 Chlorhexidine Gluconate (Ling-Hex 2%) 1 applic DAILY@2000 TOPIC 10/11/19 20:00 12/22/19 19:59 10/13/19 20:39 Clonidine HCl (Catapres TTS-3) 1 patch QWEEK TDERMAL 10/17/19 09:00 01/08/20 08:59 Daptomycin 250 mg/ Sodium Chloride 55 ml @ 100 mls/hr Q48H IV 10/11/19 16:00 10/16/19 15:59 10/13/19 16:13 Dextrose (Dextrose 50%) 25 ml Q30M PRN IV Hypoglycemia 10/11/19 04:30 01/03/20 18:29 Dextrose (Dextrose 50%) 50 ml Q30M PRN IV Hypoglycemia 10/11/19 04:30 01/03/20 18:29 Diltiazem HCl (Cardizem Tab) 90 mg Q6HR GT 10/11/19 06:00 11/09/19 11:59 10/14/19 05:22 Docusate Sodium (Colace) 100 mg Q8H GT 10/11/19 08:30 10/29/19 08:29 10/14/19 08:49 Epoetin Gelacio (Epoetin Gelacio(ESRD on dialysis)) 10,000 unit MON-MON-MON SUBQ 10/14/19 21:00 01/12/20 20:59 Haloperidol Lactate (Haldol) 5 mg Q6H PRN IM Agitation 10/11/19 05:00 11/22/19 10:59 10/11/19 12:34 Heparin Sodium (Porcine) (Heparin 5000 units/ml) 5,000 units EVERY 12 HOURS SUBQ 10/11/19 09:00 10/30/19 08:59 10/14/19 09:08 Insulin Aspart (NovoLOG) Q6HR SUBQ 10/11/19 06:00 01/03/20 20:59 Lansoprazole (Prevacid) 30 mg Q12HR GT 10/11/19 09:00 10/27/19 20:59 10/14/19 08:49 Lisinopril (PriniviL) 20 mg BID GT 10/11/19 09:00 11/08/19 17:59 10/13/19 17:30 Metoclopramide HCl (Reglan) 5 mg EVERY 6 HOURS GT 10/11/19 06:00 11/08/19 11:59 10/14/19 05:20 Metoprolol Tartrate (Lopressor) 25 mg Q12HR GT 10/11/19 09:00 01/07/20 20:59 10/13/19 20:40 Minoxidil (Loniten) 2.5 mg Q8HR ORAL 10/11/19 06:00 01/08/20 13:59 10/14/19 05:21 Morphine Sulfate (Morphine Sulfate) 2 mg Q4H PRN IVP For Pain 10/11/19 04:42 10/16/19 04:41 10/14/19 08:56 Polyethylene Glycol (Miralax) 17 gm BEDTIME ORAL 10/11/19 21:00 10/31/19 20:59 10/13/19 20:40 Risperidone (RisperDAL) 2 mg BEDTIME ORAL 10/11/19 21:00 11/19/19 20:59 10/13/19 20:40 Sertraline HCl (Zoloft) 100 mg BEDTIME GT 10/11/19 21:00 10/15/19 20:59 10/13/19 20:40 Sorbitol (sorbitoL) 30 ml EVERY 6 HOURS PRN GT Constipation 10/11/19 06:00 10/29/19 17:59 Vitamin B Complex/ Vit C/Folic Acid (Nephrovite) 1 tab DAILY ORAL 10/11/19 09:00 11/05/19 08:59 10/14/19 08:49 Zinc Sulfate (Zinc Sulfate) 220 mg DAILY ORAL 10/11/19 09:00 10/21/19 08:59 10/14/19 08:51 Assessment/Plan Assessment/Plan ASSESSMENT Acute on chronic hypoxemic respiratory failure ( trach dependent), now on vent Tracheostomy status, s/p change to cuffed trach Sepsis Pulmonary edema Pleural effusion -worsening left pl effusion s/p thoracentesis L pleural effusion 09/26 -900 ml Pneumonia with MDR Pseudomonas UTI CHF ? cardiorenal COPD Acute kidney injury and chronic kidney disease-requiring start of HD Hypertension Atrial fibrillation Moderate pulm HTN Moderate AR Dysphagia , feeding by G-tube Electrolyte abnormalities Anemia Toxic metabolic encephalopathy likely due to sepsis and ARF HTN PAF PLAN OF CARE now in [place] on vent AC trach changed 8/4 pm from uncuffed to cuffed Shiley#[address] chest w/out contrast: - Bilateral pleural effusions, right greater than left, with bilateral lower lobe consolidation or volume loss. -Ground-glass densities in the upper lobes bilaterally. This is not specific. -Tracheostomy. -Increased superior mediastinal density. Stability of adenopathy cannot be excluded. -Atherosclerotic change. -Gastrostomy. -Ascites. -Left renal stent with left hydronephrosis and renal atrophy. VQ scan -> low probability for PE worsening resp status was due to need for HD, now after HD started, resp status improving, down to PEEP 5 and AC 20 trach care , pulmonary toilet Mucomyst was prior dc given lots of thin secretions, continue Duoneb prn rapid COVID 19 NGT x3 now off Fentanyl gtt since 10/09 FiO2 down to 45% last ABG stable 10/09 not tolerated CPAP trials 10/10 - went to resp distress not done 10/11 and 10/12 continue CPAP trials as tolerated may continue in subacute upon discharge s/p thoracentesis L pleural effusion 09/26 am -> 900 ml fluid analysis noted, unlikely empyema given small # of WBC fup with fluid cx ( apparently never sent despite orders) cytology -> NGT, no malignant cells aspiration precautions venous Duplex BLE -> NGT DVT prophylaxis pulm toilet, BP elevated BP regimen optimized as per nephro monitor volumes was on gentle IVF-> dc s/p prior diuretic-Lasix require initiation of HD continue further HD as per nephro with close monitoring of volumes, renal parameters and lytes -per nephro recs abx as per ID- s/p gent x 1, now on Vanco and Zerbaxa , completed 10/02 SCX 09/15 + Proteus, SCX 09/22 Pseudomonas MDR UCX 8/2 + Providencia , UCX 09/22 VRE 10-20 K only BCX 09/14 Staph epidermidis, BCX 09/15 NGT , BCX 09/22 and 09/26 - NGTD UCX 8/25 + VRE, Laura- per ID started on Dapto 10/10- ECHO with pEF , moderate pulm HTN and moderate AR BP management with current regimen of BB, Cardizem and Hydralazine, remains in SR monitor HH with goal to keep Hgb >7, heme on board on EPO supportive care pain management wound care bowel regimen stable for dc from pulm standpoint dc plan in progress case discussed and evaluated by supervising physician Juve Martinez MD 10/14/19 1720: Subjective Allergies: Coded Allergies: No Known Allergies (Unverified , 10/10/17) Assessment/Plan Assessment/Plan Patient seen and examined with OTA. Agree with above A&P as it reflects our joint deliberations Stable on vent, not sharath CPAP trials TF's HD DVT Px Wound care Dispo planning Yara Castro NP Oct 14, 2019 09:38 Juve Martinez MD Oct 14, 2019 17:20
--- NOTE | 2019-10-14 10:25 | Nephrology Progress Note ---
Assessment/Plan Problem List: (1) JAVIER (acute kidney injury) (2) Renal failure (ARF), acute on chronic (3) Dehydration (4) Electrolyte imbalance (5) Anemia (6) Respiratory failure, acute and chronic (7) COPD with exacerbation Assessment Patient is presented with sepsis and pneumonia and UTI Patient has acute renal failure, possible underlying chronic kidney failure Severe anemia Electrolyte imbalances: Hyponatremia, hypo-kalemia Chronic respiratory failure, COPD exacerbation Plan October 13: Patient seen on dialysis. Tolerating well. Will check labs tomorrow. October 12: Blood pressure stable. Labs reviewed. BUN rising. Remains oliguric. Dialysis tomorrow. October 11: Blood pressure is stable. Labs reviewed. Continue as is. Dialysis as needed October 10: Blood pressure medication adjusted. Will check lab tomorrow. Dialysis as needed. Urine output remains low. October 09: Lab reviewed. Remains oliguric. Will give trial of Zaroxolyn. Continue per consultants. Adjust blood pressure medication. Will add Zaroxolyn and increased dose of Cardizem and add clonidine patch for better BP control October 08: Labs reviewed. Patient oliguric. Blood pressure elevated, BP medication adjusted. Recheck lab tomorrow. Dialysis and ultrafiltration as needed. October 07: Labs reviewed. Patient was dialyzed yesterday. 3000 mL fluid was removed. Patient appears to need periodic (twice a week minimum) dialysis for ultrafiltration. Continue to monitor renal parameters. Continue per consultants. October 06: Labs reviewed. Discussed with pulmonary. Will attempt dialysis and ultrafiltration. Continue per consultants. October 05: Lab reviewed. Serum creatinine rising. Blood pressure stabilized. Will recheck lab tomorrow. Dialysis as needed. Will increase lisinopril to 10 mg twice a day. October 04: Lab reviewed. Blood pressure medication adjusted since the patient is hypotensive. Serum creatinine rising. Recheck labs tomorrow. Dialysis as needed. Discussed with RN. October 03: Lab reviewed. Zestril added to BP medication. 1 dose of Seroquel ordered for agitation. Continue to monitor renal parameters. Continue per consultants. October 02: Lab reviewed. Potassium supplement IV given. 3% saline 250 cc ordered. Responded well to Zaroxolyn yesterday. Will continue to monitor electrolytes and renal parameters. Will increase minoxidil to 2.5 mg every 6 hours. October 01: Labs reviewed. Potassium supplement given. Last dialysis September 29. Serum creatinine rising gradually. Urine output very low. Patient appears to continue to need dialysis at least twice a week. Blood pressure still running high I will switch the hydralazine to minoxidil. We will give 1 dose of Zaroxolyn 10 mg today. Will check renal parameters tomorrow. September 30: Patient dialyzed yesterday. 3 L removed. Labs reviewed. Potassium supplement given. Continue per consultants. It appears that the patient required dialysis 2-3 times a week. September 29: Lab reviewed. Chest x-ray result noted. Continues to have pulmonary congestion. Urine output low. Will attempt dialysis again today with ultrafiltration. September 28: Lab reviewed. ABG reviewed. Potassium supplement given. No dialysis at this point. Will eval patient status and renal parameters daily. September 27: Lab reviewed. Last dialysis September 25. Continue to monitor renal parameters. Hemodialysis as needed. September 26: Lab reviewed. Dialyzed yesterday. Potassium supplement given. Medication list reviewed. Will observe renal parameters and arrange for dialysis as needed. September 25: Lab reviewed. Currently on hemodialysis. Tolerating well. Stable from renal standpoint of view. Blood pressure medication adjusted by increasing hydralazine. September 24: Lab reviewed. ABG reviewed. Both lab and ABG much improved. Patient was dialyzed yesterday. We will attempt dialysis tomorrow again. Will adjust that blood pressure medication dosages. September 23: Lab reviewed. ABG reviewed. Patient acidotic. IV bicarb 1 dose is given. Patient has dialysis catheter. Will order dialysis for ultrafiltration and correction of acid-base. Discussed with ERASMO Mohr. September 22: Labs reviewed. Potassium high. Kayexalate and Reglan given. Will discuss with the consultants regarding initiation of dialysis. September 21: Patient is being sedated. Labs reviewed. Potassium supplement discontinued. GFR 20. Continue per current treatment plan. Dialysis and ultrafiltration is a consideration. September 20: Patient periodically agitated. Labs reviewed. Creatinine 2.4. Medication reviewed. Continue per consultants. Calculated creatinine clearance 21. May need isolated ultrafiltration on dialysis. Will discuss with PMD. Meanwhile hemoglobin is lower, defer transfusion to PMD. September 19: DC IV fluid. Zaroxolyn via GT tube. Potassium supplement. Attempt to diurese. Chest CT as bilateral pleural effusion. If diuresis unsuccessful, will consider dialysis and ultrafiltration. September 18: Potassium supplement IV given. Hemoglobin stable. Patient remains full code. Continue per consultants. Previously: Potassium supplement IV Slow IV hydration Epogen subcu Adjust blood pressure medication IV fluid, rate adjusted Norman catheter, intake and output Monitor renal parameters Avoid nephrotoxic's Antibiotics Per orders 2D echocardiogram Kidney ultrasound Subjective ROS Limited/Unobtainable: Yes Objective Objective Last 24 Hour Vital Signs Date Time Temp Pulse Resp B/P (MAP) Pulse Ox O2 Delivery O2 Flow Rate FiO2 10/14/19 09:20 80 22 45 10/14/19 09:00 70 139/63 10/14/19 09:00 139/63 10/14/19 08:00 98.1 70 25 139/63 (88) 94 10/14/19 08:00 Mechanical Ventilator Mechanical Ventilator Mechanical Ventilator 10/14/19 08:00 45 10/14/19 08:00 67 10/14/19 07:24 78 20 98 45 78 20 45 10/14/19 05:22 76 152/88 10/14/19 05:21 152/88 10/14/19 05:02 77 24 45 10/14/19 04:00 98.0 77 20 155/90 (111) 93 10/14/19 04:00 73 10/14/19 04:00 45 10/14/19 04:00 Mechanical Ventilator Mechanical Ventilator Mechanical Ventilator 10/14/19 02:44 81 21 45 10/14/19 00:47 68 20 98 Mechanical Ventilator 45 68 20 45 10/14/19 00:00 97.3 71 20 152/88 (109) 96 10/14/19 00:00 Mechanical Ventilator Mechanical Ventilator Mechanical Ventilator 10/13/19 23:50 70 10/13/19 23:48 73 152/80 10/13/19 22:30 78 24 45 10/13/19 21:20 142/73 10/13/19 20:40 75 145/69 10/13/19 20:40 74 25 45 10/13/19 20:00 45 10/13/19 20:00 Mechanical Ventilator Mechanical Ventilator Mechanical Ventilator 10/13/19 20:00 97.5 80 20 142/81 (101) 99 10/13/19 19:31 69 10/13/19 18:56 68 22 99 Mechanical Ventilator 45 69 21 45 10/13/19 17:30 145/80 10/13/19 17:30 97 145/80 10/13/19 16:55 71 20 45 10/13/19 16:42 45 10/13/19 16:37 Mechanical Ventilator Mechanical Ventilator Mechanical Ventilator 10/13/19 16:00 98.9 82 22 145/80 (101) 97 10/13/19 15:20 82 10/13/19 15:05 82 26 45 10/13/19 14:04 153/81 10/13/19 13:49 79 23 100 Mechanical Ventilator 45 79 23 45 10/13/19 12:23 82 154/71 10/13/19 12:07 Mechanical Ventilator Mechanical Ventilator Mechanical Ventilator 10/13/19 12:00 97.5 80 24 154/71 (98) 99 10/13/19 12:00 45 10/13/19 11:42 79 10/13/19 11:00 81 25 45 Intake and Output 10/13/19 10/14/19 19:00 07:00 Intake Total 745 ml 660 ml Output Total 250 ml 500 ml Balance 495 ml 160 ml Intake Free Water 30 ml 180 ml IV Total 55 ml Tube Feeding 480 ml 480 ml Other 180 ml Output Urine Total 250 ml 500 ml Laboratory Tests 10/13/19 12:19: POC Whole Blood Glucose 97 10/13/19 17:24: POC Whole Blood Glucose 96 10/13/19 23:51: POC Whole Blood Glucose 107H 10/14/19 05:19: POC Whole Blood Glucose [Pending] Height (Feet): 5 Height (Inches): 5.00 Weight (Pounds): 149 General Appearance: no apparent distress EENT: other - On mechanical ventilation Cardiovascular: normal rate Respiratory/Chest: decreased breath sounds Abdomen: soft Objective No change Johnny Houston MD Oct 14, 2019 10:25
[2019-10-14] MEDS: Acetaminophen 650mg/20.3ml GT PRN (11:41)
--- NOTE | 2019-10-14 11:55 | Infectious Diseases Prog Note ---
Assessment/Plan 49yo F with: Acute hypoxic resp failure: Now on vent, worsening, FiO2 100% > 80% 09/27 > 60% >40% 10/08 >30% 10/09 Pneumonia, COVID19 neg x3 - MDR PsA pneumonia,s pr x 10/07 CXR: Bilateral infiltrates versus edema, left greater than right pleural effusions are again demonstrated, unchanged. There is slightly better inspiration currently. 09/29 CXR: Bilateral edema versus infiltrates appears slightly worse than on the prior study. There is probably some pleural fluid on the left. 09/26 S/P thoracentesis, 900cc removed, only 67 WBC in fluid analysis, unlikely empyema 09/26 CXR: Worsening R perihilar opacity 09/26 BCx Neg 09/24 CXR: Previously demonstrated right lateral basilar lucency is no longer evident, was presumably a skin fold artifact. Bilateral infiltrates and left pleural effusion are probably unchanged allowing for slight differences in technique. 09/22 Resp cx + MDR PsA (S-gent; I-colistin; R-levofloxacin, Zosyn, angelo) 09/22 BCx NTD 09/22 CXR: worsening BL pna 09/22 UA w/ persistent pyuria, now on HD, UCx +VRE, most likely colonizer as improving wo tx for this 09/19 V/Q scan, low probability of PE 09/18 Rapid COVID PCR neg 09/18 CT chest: Markedly suboptimal examination due to lack of IV contrast material. Bilateral pleural effusions, right greater than left, with bilateral lower lobe consolidation or volume loss. Ground glass densities in the upper lobes bilaterally. This is not specific. Tracheostomy. Increased superior mediastinal density. Stability of adenopathy cannot be excluded. Atherosclerotic change. Gastrostomy. Ascites. Left renal stent with left hydronephrosis and renal atrophy. 09/17 Chest US: Trace right and small left pleural effusions. No safe window identified for bedside thoracentesis. Note that the majority of the left pleural effusion is subpulmonic. 09/16 CXR: Worsening of right lung infiltrates and right effusion. V. duplex: NO DVT D-dimer elevated 09/15 Rapid COVID PCR neg 09/15 Sp cx ESBL P. mirablis 09/14 CXR: Bilateral airspace opacities, preferentially involving the right lung, consistent with multifocal infiltrate. Trace bilateral pleural effusions. No pneumothorax. Rapid COVID PCR neg Urine legionella neg 09/16 GPC bacteremia, real vs contaminant; does have hx of infected PPM- 09/14 Bcx 2/ S. epidermis; 09/15, , Bcx Neg 2d echo: no vegetations seen UTI, recurrent 09/14 u/a wbc tnct, nit neg, leuk +3; ucx >100k MDR P. stuarti (S Ceftriaxone, Meropenem) 09/22 UA w/ ongoing pyuria, unchanged 10/07 u/a wbc tnct, nit neg, leuk ; ucx >100k VRE Unstageable sacral ulceration Afebrile Leukocytosis, mild; fluctuates bt -- JAVIER on CKD --> now on HD Renal US: Limited exam due to abdominal ascites and shadowing from bowel gas. CT recommended for more sensitive evaluation. Moderate right hydronephrosis. Increased renal parenchymal echogenicity suggesting intrinsic/ medical renal disease. Question indwelling left ureteral stent versus artifact. Bladder not visualized. 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 epi-11/2018, sp > 6weeks IV vancomycin 11/27 SP ABBIE: no evidence for vegetation on any of the valves 11/26/18 SP PPM removal: OR findings:The fibrous capsule enclosing the generator was then opened and there was a [id number] amount of yellowish fluid drainage. The generator was then removed.Atrial and ventricular leads were detached. The necrotic tissue of the pocket was then removed and the pocket was flushed with an antibiotic solution. Capsule, wound tissue and lead tip cx: Neg 2d echo: no vegetation seen US chest: 4.6 x 3.4 x 0.9 cm hypoechoic/anechoic area overlying left chest pacemaker power pack. This could represent either a discrete fluid collection or a focal area of very edematous tissue. Infected fluid pocket also possible. 11/18 Bcx 3/ S. epi; 11/20 Bcx neg; 11/24 Bcx Neg; 11/27 Bcx Neg Hx of PNA 11/2019? sp cx PsA (arnett S), ABC (I Ceftriaxone; otherwise negative) Sp cx MRSA, ABC (I Ceftriaxone; otherwise S) PMH: Afib HTN Dysphagia sp GT Aortic dissection s/p repair 2017, S/p PPM Parkinson's Disease Schizophrenia Anxiety COPD Chronic resp failure s/p trach Hx of tracheal bleeding [facility] resident ([facility]) Plan: cont IV Daptomycin #4/5 for VRE UTI -monitor CPK 10/03 SP Zerbaxa #6, gent #7 for MDR PsA pna 09/29 SP vanco #15 for S.epi in BCx 09/27 SP angelo #13 8 SP Cefepime #3, Levaquin #3 Monitor CBC/CMP, temperatures trach/ peg care Aspiration precautions D/w RN Thank you for this consultation. Will continue to follow along with you. Subjective Allergies: Coded Allergies: No Known Allergies (Unverified , 10/10/17) afebrile no leukocytosis Objective Last 24 Hour Vital Signs Date Time Temp Pulse Resp B/P (MAP) Pulse Ox O2 Delivery O2 Flow Rate FiO2 10/14/19 10:32 76 20 45 10/14/19 09:20 80 22 45 10/14/19 09:00 70 139/63 10/14/19 09:00 139/63 10/14/19 08:00 98.1 70 25 139/63 (88) 94 10/14/19 08:00 Mechanical Ventilator Mechanical Ventilator Mechanical Ventilator 10/14/19 08:00 45 10/14/19 08:00 67 10/14/19 07:24 78 20 98 45 78 20 45 10/14/19 05:22 76 152/88 10/14/19 05:21 152/88 10/14/19 05:02 77 24 45 10/14/19 04:00 98.0 77 20 155/90 (111) 93 10/14/19 04:00 73 10/14/19 04:00 45 10/14/19 04:00 Mechanical Ventilator Mechanical Ventilator Mechanical Ventilator 10/14/19 02:44 81 21 45 10/14/19 00:47 68 20 98 Mechanical Ventilator 45 68 20 45 10/14/19 00:00 97.3 71 20 152/88 (109) 96 10/14/19 00:00 Mechanical Ventilator Mechanical Ventilator Mechanical Ventilator 10/13/19 23:50 70 10/13/19 23:48 73 152/80 10/13/19 22:30 78 24 45 10/13/19 21:20 142/73 10/13/19 20:40 75 145/69 10/13/19 20:40 74 25 45 8/30/20 20:00 45 10/13/19 20:00 Mechanical Ventilator Mechanical Ventilator Mechanical Ventilator 10/13/19 20:00 97.5 80 20 142/81 (101) 99 10/13/19 19:31 69 10/13/19 18:56 68 22 99 Mechanical Ventilator 45 69 21 45 10/13/19 17:30 145/80 10/13/19 17:30 97 145/80 10/13/19 16:55 71 20 45 10/13/19 16:42 45 10/13/19 16:37 Mechanical Ventilator Mechanical Ventilator Mechanical Ventilator 10/13/19 16:00 98.9 82 22 145/80 (101) 97 10/13/19 15:20 82 10/13/19 15:05 82 26 45 10/13/19 14:04 153/81 10/13/19 13:49 79 23 100 Mechanical Ventilator 45 79 23 45 10/13/19 12:23 82 154/71 10/13/19 12:07 Mechanical Ventilator Mechanical Ventilator Mechanical Ventilator 10/13/19 12:00 97.5 80 24 154/71 (98) 99 10/13/19 12:00 45 Height (Feet): 5 Height (Inches): 5.00 Weight (Pounds): 149 Gen: no distress Cardiovascular: RrR Respiratory: decreased breath sounds Abdomen: soft, non-tender, present bowel sounds Extremities: no edema, no tenderness, no cyanosis Laboratory Tests Test 10/13/19 12:19 10/13/19 17:24 10/13/19 23:51 10/14/19 05:19 POC Whole Blood Glucose 97 MG/DL (74-106) 96 MG/DL (74-106) 107 MG/DL (74-106) H Pending Test 10/14/19 11:30 POC Whole Blood Glucose Pending Current Medications Medications (Trade) Dose Ordered Sig/Penny Route PRN Reason Start Time Stop Time Status Last Admin Dose Admin Acetaminophen (Tylenol) 325 mg Q6H PRN GT Temp >100.5 10/11/19 04:45 10/23/19 10:44 Albuterol/ Ipratropium (Albuterol/ Ipratropium) 3 ml Q6HRT HHN 10/11/19 07:00 10/14/19 12:59 10/14/19 07:24 Ascorbic Acid (Vitamin C) 500 mg DAILY ORAL 10/11/19 09:00 11/05/19 08:59 10/14/19 08:49 Chlorhexidine Gluconate (Ling-Hex 2%) 1 applic DAILY@2000 TOPIC 10/11/19 20:00 12/22/19 19:59 10/13/19 20:39 Clonidine HCl (Catapres TTS-3) 1 patch QWEEK TDERMAL 10/14/19 12:00 01/12/20 11:59 Daptomycin 250 mg/ Sodium Chloride 55 ml @ 100 mls/hr Q48H IV 10/11/19 16:00 10/16/19 15:59 10/13/19 16:13 Dextrose (Dextrose 50%) 25 ml Q30M PRN IV Hypoglycemia 10/11/19 04:30 01/03/20 18:29 Dextrose (Dextrose 50%) 50 ml Q30M PRN IV Hypoglycemia 10/11/19 04:30 01/03/20 18:29 Diltiazem HCl (Cardizem Tab) 90 mg Q6HR GT 10/11/19 06:00 11/09/19 11:59 10/14/19 05:22 Docusate Sodium (Colace) 100 mg Q8H GT 10/11/19 08:30 10/29/19 08:29 10/14/19 08:49 Epoetin Gelacio (Epoetin Gelacio(ESRD on dialysis)) 10,000 unit MON-MON-MON SUBQ 10/14/19 21:00 01/12/20 20:59 Haloperidol Lactate (Haldol) 5 mg Q6H PRN IM Agitation 10/11/19 05:00 11/22/19 10:59 10/11/19 12:34 Heparin Sodium (Porcine) (Heparin 5000 units/ml) 5,000 units EVERY 12 HOURS SUBQ 10/11/19 09:00 10/30/19 08:59 10/14/19 09:08 Insulin Aspart (NovoLOG) Q6HR SUBQ 10/11/19 06:00 01/03/20 20:59 Lansoprazole (Prevacid) 30 mg Q12HR GT 10/11/19 09:00 10/27/19 20:59 10/14/19 08:49 Lisinopril (PriniviL) 20 mg BID GT 10/11/19 09:00 11/08/19 17:59 10/13/19 17:30 Metoclopramide HCl (Reglan) 5 mg EVERY 6 HOURS GT 10/11/19 06:00 11/08/19 11:59 10/14/19 05:20 Metoprolol Tartrate (Lopressor) 25 mg Q12HR GT 10/11/19 09:00 01/07/20 20:59 10/13/19 20:40 Minoxidil (Loniten) 2.5 mg Q8HR ORAL 10/11/19 06:00 01/08/20 13:59 10/14/19 05:21 Morphine Sulfate (Morphine Sulfate) 2 mg Q4H PRN IVP For Pain 10/11/19 04:42 10/16/19 04:41 10/14/19 08:56 Polyethylene Glycol (Miralax) 17 gm BEDTIME ORAL 10/11/19 21:00 10/31/19 20:59 10/13/19 20:40 Risperidone (RisperDAL) 2 mg BEDTIME ORAL 10/11/19 21:00 11/19/19 20:59 10/13/19 20:40 Sertraline HCl (Zoloft) 100 mg BEDTIME GT 10/11/19 21:00 10/15/19 20:59 10/13/19 20:40 Sorbitol (sorbitoL) 30 ml EVERY 6 HOURS PRN GT Constipation 10/11/19 06:00 10/29/19 17:59 Vitamin B Complex/ Vit C/Folic Acid (Nephrovite) 1 tab DAILY ORAL 10/11/19 09:00 11/05/19 08:59 10/14/19 08:49 Zinc Sulfate (Zinc Sulfate) 220 mg DAILY ORAL 10/11/19 09:00 10/21/19 08:59 10/14/19 08:51 Doreen Nino M.D. Oct 14, 2019 11:55
--- NOTE | 2019-10-14 13:04 | Surgery Progress Note ---
Surgery Progress Note Subjective Symptoms: improved, tolerating diet, passing flatus, BM Objective Last 24 Hour Vital Signs Date Time Temp Pulse Resp B/P (MAP) Pulse Ox O2 Delivery O2 Flow Rate FiO2 10/14/19 12:30 78 20 98 45 77 20 45 10/14/19 11:59 102 10/14/19 11:51 181/80 10/14/19 11:40 100 192/87 10/14/19 10:32 76 20 45 10/14/19 09:20 80 22 45 10/14/19 09:00 70 139/63 10/14/19 09:00 139/63 10/14/19 08:00 98.1 70 25 139/63 (88) 94 10/14/19 08:00 Mechanical Ventilator Mechanical Ventilator Mechanical Ventilator 10/14/19 08:00 45 10/14/19 08:00 67 10/14/19 07:24 78 20 98 45 78 20 45 10/14/19 05:22 76 152/88 10/14/19 05:21 152/88 10/14/19 05:02 77 24 45 10/14/19 04:00 98.0 77 20 155/90 (111) 93 10/14/19 04:00 73 10/14/19 04:00 45 10/14/19 04:00 Mechanical Ventilator Mechanical Ventilator Mechanical Ventilator 10/14/19 02:44 81 21 45 10/14/19 00:47 68 20 98 Mechanical Ventilator 45 68 20 45 10/14/19 00:00 97.3 71 20 152/88 (109) 96 10/14/19 00:00 Mechanical Ventilator Mechanical Ventilator Mechanical Ventilator 10/13/19 23:50 70 10/13/19 23:48 73 152/80 10/13/19 22:30 78 24 45 10/13/19 21:20 142/73 10/13/19 20:40 75 145/69 10/13/19 20:40 74 25 45 10/13/19 20:00 45 10/13/19 20:00 Mechanical Ventilator Mechanical Ventilator Mechanical Ventilator 10/13/19 20:00 97.5 80 20 142/81 (101) 99 10/13/19 19:31 69 10/13/19 18:56 68 22 99 Mechanical Ventilator 45 69 21 45 10/13/19 17:30 145/80 8/30/20 17:30 97 145/80 10/13/19 16:55 71 20 45 10/13/19 16:42 45 10/13/19 16:37 Mechanical Ventilator Mechanical Ventilator Mechanical Ventilator 10/13/19 16:00 98.9 82 22 145/80 (101) 97 10/13/19 15:20 82 10/13/19 15:05 82 26 45 10/13/19 14:04 153/81 10/13/19 13:49 79 23 100 Mechanical Ventilator 45 79 23 45 I&O Intake and Output 10/13/19 10/14/19 19:00 07:00 Intake Total 745 ml 660 ml Output Total 250 ml 500 ml Balance 495 ml 160 ml Intake Free Water 30 ml 180 ml IV Total 55 ml Tube Feeding 480 ml 480 ml Other 180 ml Output Urine Total 250 ml 500 ml Dressing: saturated Cardiovascular: RSR Respiratory: decreased breath sounds Abdomen: soft, non-tender, present bowel sounds Extremities: edema, no tenderness, no cyanosis Laboratory Tests Test 10/13/19 17:24 10/13/19 23:51 10/14/19 05:19 10/14/19 11:30 POC Whole Blood Glucose 96 MG/DL (74-106) 107 MG/DL (74-106) H Pending Pending Plan Problems: (1) Anemia (2) Proteinuria (3) UTI (urinary tract infection) (4) ARF (acute renal failure) (5) ACS (acute coronary syndrome) (6) Respiratory failure, acute and chronic (7) HCAP (healthcare-associated pneumonia) (8) Abrasion of lip, initial encounter (9) COPD with exacerbation (10) Hypokalemia (11) Sepsis Assessment & Plan: Leukocytosis, anemia, abnormal labs. Renal insufficiency potentially dehydrated Abnormal LFTs alk phos elevated Urine noted significant bacteria likely UTI etiology Wound stable still requiring local care IV antibiotics per infectious disease Discussed with launch manager Dr. Berkowitz air mattress turn q2h nutritional tf will follow with recs thank you CT noted pending VQ scan - noted poor study low prob PE work respiratory increasing needs sedation weaning vent settings 80% peep 10 now comfortable Hd line in receiving HD plan for left thora 09/26 cont weaning vent as tolerated improving labs improved placement d/c planning (12) Chronic respiratory failure (13) Ascites (14) Bacteremia (15) Hypernatremia (16) Pleural effusion (17) Pacemaker (18) Aortic dissection, thoracic (19) Tracheostomy in place Assessment & Plan: trach stable no bleeding currently likely tongue etiology of mild oozing currently hemostatic without trauma (20) Feeding by G-tube Assessment & Plan: okay to resume tube feeds via g tube patent and functional dressings okay DAILY ESTIMATED NEEDS: Needs based on Pulmonary, wound 49kg 30-35 kcals/kg 6134-1806 total kcals 1.25-2 g protein/kg 61-98 g total protein Fluid per MD NUTRITION DIAGNOSIS: * Swallowing difficulty R/T dysphagia, respiratory status as evidenced by vent dep via T-collar, GT Dep. (CURRENT TF: Nepro @45ml/hr x 24 hrs) ENTERAL NUTRITION RECOMMENDATIONS: Nepro @ 40ml/hr x 24 hrs to provide 960ml, 1728kcal, 78g prot, 698ml free water * Rec LOWER current rate to 40ml/hr for 24 hrs run. 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 Base of wound is granular with bone exposure at base of sacrococcygeal.(L)10.5cm x (W06.5cm x (D) 2.8cm , undermining 11-3 by 3.6cm @12 o'clock. small amt serosanguineous exudate noted . Atkinson epithelial along edges bordered by darker skin tone without erythema. Resolving Pressure injury L ischium. Base of wound is 95% pink epithelial ,5% noni at center base of wound. No exudate noted. Both heels are boggy with non-Blanching erythema. Tx.plan: Cleanse Sacral wound with Saline. Loosely pack with Hydrogel impregnated Kerlix. Apply Moisture Barrier Periwound. Cover with Optifoam drsg Daily and prn. Apply Moisture Barrier paste to L Ischium. Cover with Optifoam drsg. Changee very 3 days and prn. Apply Cavilon Skin Barrier to both heels. Cover each heel with Optifoam drsgs. Change every 7 days and prn. Reposition at least every 2hours or as tolerated. Off-load heels with pillow. APM/MAXWELL Mattress overlay. Sacral wound resolving. Wound is smaller in size with less depth and undermining (L)8.5cm x (W)5cm x (D)1.3cm, undermining clockwise 11-3 by 2.1cm @ 12o'clock. Base of wound is pink and moist, small area of bone exposure at base. Small amt. seropurulent exudate noted. No odor noted. Periwound without evidence of further skin breakdown noted. Wound Tx. are effective and continued as ordered. Al wound prevention protocols continued as care-planned. Tx.Plan:Cleanse sacral wound with Saline. Loosely pack with Hydrogel impregnated kerlix. Apply Moisture Barrier Paste periwound. Cover with Optifoam drsg Daily and prn. Apply Cavilon Skin Barrier to both heels and malleoli. Cover eachsite with Optifoam drsgs. Change every 7 days and prn. Reposition at least every 2hours or as tolerated. Off-load heels with pillow. APM/Maxwell Mattress overlay. Lane Saavedra Oct 14, 2019 13:03
[2019-10-14] MEDS: Dyna-Hex 2% Top Sol 2oz TOPIC SCH (20:56)
[2019-10-14] MEDS: Epoetin Alfa-EPBX(ESRD on dialysis)10,000 unit/ml vial SUBQ SCH (20:56)
[2019-10-14] MEDS: Sertraline 100mg tab GT SCH (20:57)
[2019-10-14] MEDS: Miralax 17gm pkt ORAL SCH (20:58)
--- NOTE | 2019-10-14 21:57 | General Progress Note ---
Assessment/Plan Status: stable, other - Mood has improved he is able to smile there is no continuous tearing overall she looks better today energy looking the last several days continue with the same management Assessment/Plan: Overall patient looks better today than it should have been the last several days we will continue with the same management repeat laboratory tests will be done in the a.m. patient distress unexplained during hands moderately improved today and baby will continue Subjective Constitutional: Reports: other - s awake alert afebrile and hemodynamically stable HEENT: Reports: no symptoms Cardiovascular: Reports: other - She denies any chest pain shortness of breath palpitations dizziness Respiratory: Reports: other - She denies any cough wheezing or expectoration Gastrointestinal/Abdominal: Reports: other - She tolerated well G-tube feeding in the line by had not the appearance of any new abdominal graphics Genitourinary: Reports: no symptoms Neurologic/Psychiatric: Reports: other - She denies any numbness tingling and pain control is adequate she does not drop suddenly into unexplained tearful condition when asked if she is depressed she has about the negative barium head movement Allergies: Coded Allergies: No Known Allergies (Unverified , 10/10/17) Objective Last 24 Hour Vital Signs Date Time Temp Pulse Resp B/P (MAP) Pulse Ox O2 Delivery O2 Flow Rate FiO2 10/14/19 21:28 62 21 40 10/14/19 20:58 66 131/64 10/14/19 20:00 Mechanical Ventilator Mechanical Ventilator Mechanical Ventilator 10/14/19 20:00 68 10/14/19 20:00 97.7 64 20 124/55 (78) 93 10/14/19 19:30 65 20 40 10/14/19 17:41 40 10/14/19 17:23 133/64 10/14/19 17:23 79 133/64 10/14/19 16:54 79 21 45 10/14/19 16:00 Mechanical Ventilator Mechanical Ventilator Mechanical Ventilator 10/14/19 16:00 99.0 83 25 133/64 (87) 93 10/14/19 16:00 79 10/14/19 16:00 45 10/14/19 15:20 98.4 65 24 134/65 (88) 95 10/14/19 14:47 100.0 10/14/19 14:44 82 16 45 10/14/19 14:25 135/60 10/14/19 12:30 78 20 98 45 77 20 45 10/14/19 12:30 101.4 69 132/66 (88) 10/14/19 12:11 101.2 10/14/19 12:00 45 10/14/19 12:00 Mechanical Ventilator Mechanical Ventilator Mechanical Ventilator 10/14/19 12:00 101.7 72 25 181/69 (106) 93 10/14/19 11:59 102 10/14/19 11:51 181/80 10/14/19 11:40 100 192/87 10/14/19 10:32 76 20 45 10/14/19 09:20 80 22 45 10/14/19 09:00 70 139/63 10/14/19 09:00 139/63 10/14/19 08:00 98.1 70 25 139/63 (88) 94 10/14/19 08:00 Mechanical Ventilator Mechanical Ventilator Mechanical Ventilator 10/14/19 08:00 45 10/14/19 08:00 67 10/14/19 07:24 78 20 98 45 78 20 45 10/14/19 05:22 76 152/88 10/14/19 05:21 152/88 10/14/19 05:02 77 24 45 10/14/19 04:00 98.0 77 20 155/90 (111) 93 10/14/19 04:00 73 10/14/19 04:00 45 10/14/19 04:00 Mechanical Ventilator Mechanical Ventilator Mechanical Ventilator 10/14/19 02:44 81 21 45 10/14/19 00:47 68 20 98 Mechanical Ventilator 45 68 20 45 10/14/19 00:00 97.3 71 20 152/88 (109) 96 10/14/19 00:00 Mechanical Ventilator Mechanical Ventilator Mechanical Ventilator 10/13/19 23:50 70 10/13/19 23:48 73 152/80 10/13/19 22:30 78 24 45 Intake and Output 10/13/19 10/14/19 19:00 07:00 Intake Total 745 ml 660 ml Output Total 250 ml 500 ml Balance 495 ml 160 ml Intake Free Water 30 ml 180 ml IV Total 55 ml Tube Feeding 480 ml 480 ml Other 180 ml Output Urine Total 250 ml 500 ml Laboratory Tests 10/13/19 23:51: POC Whole Blood Glucose 107H 10/14/19 05:19: POC Whole Blood Glucose [Pending] 10/14/19 11:30: POC Whole Blood Glucose [Pending] 10/14/19 16:23: POC Whole Blood Glucose 104 Height (Feet): 5 Height (Inches): 5.00 Weight (Pounds): 149 General Appearance: alert, lethargic, other - None confused EENT: other - Mucous members are moist and intact Neck: supple, other - There was no JVD no bruit Cardiovascular: normal rate, regular rhythm, no JVD, other - There was no S3- S4 pericardial rub Respiratory/Chest: lungs clear, no respiratory distress Abdomen: normal bowel sounds, non tender, soft, no mass Neurologic: abnormal gait, alert, oriented x 3, responsive, other - Her voice and her demeaner in spite of that. Depressed Lucas Dong MD Oct 14, 2019 21:57
--- NOTE | 2019-10-14 23:32 | Psych Consult Progress Note ---
Psychiatry Progress Note Psychiatry Progress Note Subjective the pt was calm dec agitation manageable with morphine and haldol off restraints Medications Current Medications Medications (Trade) Dose Ordered Sig/Penny Route PRN Reason Start Time Stop Time Status Last Admin Dose Admin Acetaminophen (Tylenol) 325 mg Q6H PRN GT Temp >100.5 10/11/19 04:45 10/23/19 10:44 10/14/19 11:41 Ascorbic Acid (Vitamin C) 500 mg DAILY ORAL 10/11/19 09:00 11/05/19 08:59 10/14/19 08:49 Chlorhexidine Gluconate (Ling-Hex 2%) 1 applic DAILY@2000 TOPIC 10/11/19 20:00 12/22/19 19:59 10/14/19 20:56 Clonidine HCl (Catapres TTS-3) 1 patch QWEEK TDERMAL 10/14/19 12:00 01/12/20 11:59 10/14/19 11:51 Daptomycin 250 mg/ Sodium Chloride 55 ml @ 100 mls/hr Q48H IV 10/11/19 16:00 10/16/19 15:59 10/13/19 16:13 Dextrose (Dextrose 50%) 25 ml Q30M PRN IV Hypoglycemia 10/11/19 04:30 01/03/20 18:29 Dextrose (Dextrose 50%) 50 ml Q30M PRN IV Hypoglycemia 10/11/19 04:30 01/03/20 18:29 Diltiazem HCl (Cardizem Tab) 90 mg Q6HR GT 10/11/19 06:00 11/09/19 11:59 10/14/19 17:23 Docusate Sodium (Colace) 100 mg Q8HR GT 10/14/19 14:01 11/13/19 14:00 10/14/19 22:58 Epoetin Gelacio (Epoetin Gelacio(ESRD on dialysis)) 10,000 unit MON-MON-MON SUBQ 10/14/19 21:00 01/12/20 20:59 10/14/19 20:56 Haloperidol Lactate (Haldol) 5 mg Q6H PRN IM Agitation 10/11/19 05:00 11/22/19 10:59 10/11/19 12:34 Heparin Sodium (Porcine) (Heparin 5000 units/ml) 5,000 units EVERY 12 HOURS SUBQ 10/11/19 09:00 10/30/19 08:59 10/14/19 20:59 Insulin Aspart (NovoLOG) Q6HR SUBQ 10/11/19 06:00 01/03/20 20:59 Lansoprazole (Prevacid) 30 mg Q12HR GT 10/11/19 09:00 10/27/19 20:59 10/14/19 20:57 Lisinopril (PriniviL) 20 mg BID GT 10/11/19 09:00 11/08/19 17:59 10/14/19 17:23 Metoclopramide HCl (Reglan) 5 mg EVERY 6 HOURS GT 10/11/19 06:00 11/08/19 11:59 10/14/19 17:23 Metoprolol Tartrate (Lopressor) 25 mg Q12HR GT 10/11/19 09:00 01/07/20 20:59 10/14/19 20:58 Minoxidil (Loniten) 2.5 mg Q8HR ORAL 10/11/19 06:00 01/08/20 13:59 10/14/19 22:58 Morphine Sulfate (Morphine Sulfate) 2 mg Q4H PRN IVP For Pain 10/11/19 04:42 10/16/19 04:41 10/14/19 14:17 Polyethylene Glycol (Miralax) 17 gm BEDTIME ORAL 10/11/19 21:00 10/31/19 20:59 10/14/19 20:58 Risperidone (RisperDAL) 2 mg BEDTIME ORAL 10/11/19 21:00 11/19/19 20:59 10/14/19 20:57 Sertraline HCl (Zoloft) 100 mg BEDTIME GT 10/11/19 21:00 10/15/19 20:59 10/14/19 20:57 Sorbitol (sorbitoL) 30 ml EVERY 6 HOURS PRN GT Constipation 10/11/19 06:00 10/29/19 17:59 Vitamin B Complex/ Vit C/Folic Acid (Nephrovite) 1 tab DAILY ORAL 10/11/19 09:00 11/05/19 08:59 10/14/19 08:49 Zinc Sulfate (Zinc Sulfate) 220 mg DAILY ORAL 10/11/19 09:00 10/21/19 08:59 8/31/20 08:51 Neurological/Psychiatric: Reports: other - She denies any numbness tingling and pain control is adequate she does not drop suddenly into unexplained tearful condition when asked if she is depressed she has about the negative barium head movement Allergies: Coded Allergies: No Known Allergies (Unverified , 10/10/17) Objective Data Height (Feet): 5 Height (Inches): 5.00 Weight (Pounds): 149 General Appearance: alert, lethargic, other - None confused Additional Comments: awake, disoriented. Mood is agitated. Affect is flat. Thought process is concrete. Thought content, no suicidal or homicidal ideation. Cognition is impaired. Insight and judgment are impaired. Assessment/Plan [place] I: ASSESSMENT: AXIS I: Acute encephalopathy. Schizophrenia. AXIS II: Deferred. AXIS III: As above. AXIS IV: Low. AXIS V: 20. PLAN: 1. We will start the patient on risperidone 2 mg at bedtime. 2. Haldol IM. The patient improved after 1 dose and restraints was stopped at nighttime. 3. Continue to follow and readjust the medications. Status: stable, other - Mood has improved he is able to smile there is no continuous tearing overall she looks better today energy looking the last several days continue with the same management Status Narrative ASSESSMENT: AXIS I: Acute encephalopathy. Schizophrenia. AXIS II: Deferred. AXIS III: As above. AXIS IV: Low. AXIS V: 20. PLAN: 1. We will start the patient on risperidone 2 mg at bedtime. 2. Haldol IM. The patient improved after 1 dose and restraints was stopped at nighttime. 3. Continue to follow and readjust the medications. Assessment/Plan: ASSESSMENT: AXIS I: Acute encephalopathy. Schizophrenia. AXIS II: Deferred. AXIS III: As above. AXIS IV: Low. AXIS V: 20. PLAN: 1. We will start the patient on risperidone 2 mg at bedtime. 2. Haldol IM. The patient improved after 1 dose and restraints was stopped at nighttime. 3. Continue to follow and readjust the medications. Shanda Linares MD Oct 14, 2019 23:32
[2019-10-15] VITALS (7 sets, daily range): BP systolic 115–164; BP diastolic 59–76
[2019-10-15] MEDS: Metoclopramide 10mg/10ml Liq GT SCH ×5 (00:15→23:21)
[2019-10-15] MEDS: Morphine Sulfate 2mg/ml Inj(IV/IM USE ONLY) IVP PRN ×3 (00:43→14:56)
[2019-10-15 05:23] LABS: BASOPHILS % (AUTO) 0.4 % (0.0-2.0); EOSINOPHILS % (AUTO) 2.7 % (0.0-3.0); HEMATOCRIT 30.9 % (37.0-47.0); HEMOGLOBIN 10.1 G/DL (12.0-16.0); LYMPHOCYTES % (AUTO) 8.1 % (20.0-45.0); MEAN CORPUSCULAR VOLUME 94 FL (80-99); MONOCYTES % (AUTO) 4.6 % (1.0-10.0); NEUTROPHILS % (AUTO) 84.3 % (45.0-75.0); PLATELET COUNT 398 K/UL (150-450); RED BLOOD COUNT 3.28 M/UL (4.20-5.40); RED CELL DISTRIBUTION WIDTH 14.8 % (11.6-14.8); WHITE BLOOD COUNT 16.5 K/UL (4.8-10.8)
[2019-10-15 05:52] LABS: ALANINE AMINOTRANSFERASE 6 U/L (12-78); ALBUMIN 1.6 G/DL (3.4-5.0); ALBUMIN/GLOBULIN RATIO 0.3 (1.0-2.7); ALKALINE PHOSPHATASE 163 U/L (46-116); ANION GAP 8 mmol/L (5-15); ASPARTATE AMINO TRANSFERASE 13 U/L (15-37); BILIRUBIN,TOTAL 0.3 MG/DL (0.2-1.0); BLOOD UREA NITROGEN 71 mg/dL (7-18); CALCIUM 8.8 MG/DL (8.5-10.1); CARBON DIOXIDE 28 MMOL/L (21-32); CHLORIDE 97 MMOL/L (98-107); PHOSPHORUS 5.6 MG/DL (2.5-4.9); POTASSIUM 3.5 MMOL/L (3.5-5.1); SODIUM 133 MMOL/L (136-145)
[2019-10-15] MEDS: NovoLOG Insulin Flexpen SUBQ SCH ×5 (06:00→23:25)
[2019-10-15] MEDS: Docusate 100mg/10ml Liq GT SCH ×3 (06:10→21:17)
[2019-10-15] MEDS: dilTIAZem HCl 90mg tab GT SCH ×5 (06:10→23:21)
[2019-10-15] MEDS: Minoxidil 2.5mg tab ORAL SCH ×3 (06:12→21:16)
--- NOTE | 2019-10-15 06:19 | General Progress Note ---
Assessment/Plan Problem List: (1) S/P aortic dissection repair ICD Codes: Z98.890 - Other specified postprocedural states SNOMED: 741906519, 787272528 (2) Sacral decubitus ulcer, stage IV ICD Codes: L89.154 - Pressure ulcer of sacral region, stage 4 SNOMED: 492115910, 818606278 (3) Anemia ICD Codes: D64.9 - Anemia, unspecified SNOMED: 280080190 (4) GT CLOGGED (5) Feeding by G-tube ICD Codes: Z93.1 - Gastrostomy status SNOMED: 379344391, 331311781 (6) Tracheostomy in place ICD Codes: Z93.0 - Tracheostomy status SNOMED: 430925318 (7) Pacemaker ICD Codes: Z95.0 - Presence of cardiac pacemaker SNOMED: 176459847 (8) Chronic respiratory failure ICD Codes: J96.10 - Chronic respiratory failure, unspecified whether with hypoxia or hypercapnia SNOMED: 33382723 Status: stable, other - Mood has improved he is able to smile there is no continuous tearing overall she looks better today energy looking the last several days continue with the same management Assessment/Plan: GTF monitor for residuals repeat labs abx per ID respiratory care dc planning per primary team Subjective ROS Limited/Unobtainable: No Allergies: Coded Allergies: No Known Allergies (Unverified , 10/10/17) Objective Last 24 Hour Vital Signs Date Time Temp Pulse Resp B/P (MAP) Pulse Ox O2 Delivery O2 Flow Rate FiO2 10/15/19 06:12 140/68 10/15/19 06:10 72 140/68 10/15/19 05:18 73 22 40 10/15/19 03:45 69 10/15/19 03:33 40 10/15/19 03:24 70 21 40 10/15/19 01:30 69 20 40 10/15/19 00:00 98.1 68 23 137/62 (87) 93 10/15/19 00:00 Mechanical Ventilator Mechanical Ventilator Mechanical Ventilator 10/15/19 00:00 60 139/60 10/15/19 00:00 40 10/14/19 23:31 66 10/14/19 23:08 64 22 40 10/14/19 22:58 128/62 8/31/20 21:28 62 21 40 10/14/19 20:58 66 131/64 10/14/19 20:00 Mechanical Ventilator Mechanical Ventilator Mechanical Ventilator 10/14/19 20:00 68 10/14/19 20:00 97.7 64 20 124/55 (78) 93 10/14/19 19:30 65 20 40 10/14/19 17:41 40 10/14/19 17:23 133/64 10/14/19 17:23 79 133/64 10/14/19 16:54 79 21 45 10/14/19 16:00 Mechanical Ventilator Mechanical Ventilator Mechanical Ventilator 10/14/19 16:00 99.0 83 25 133/64 (87) 93 10/14/19 16:00 79 10/14/19 16:00 45 10/14/19 15:20 98.4 65 24 134/65 (88) 95 10/14/19 14:47 100.0 10/14/19 14:44 82 16 45 10/14/19 14:25 135/60 10/14/19 12:30 78 20 98 45 77 20 45 10/14/19 12:30 101.4 69 132/66 (88) 10/14/19 12:11 101.2 10/14/19 12:00 45 10/14/19 12:00 Mechanical Ventilator Mechanical Ventilator Mechanical Ventilator 10/14/19 12:00 101.7 72 25 181/69 (106) 93 10/14/19 11:59 102 10/14/19 11:51 181/80 10/14/19 11:40 100 192/87 10/14/19 10:32 76 20 45 10/14/19 09:20 80 22 45 10/14/19 09:00 70 139/63 10/14/19 09:00 139/63 10/14/19 08:00 98.1 70 25 139/63 (88) 94 10/14/19 08:00 Mechanical Ventilator Mechanical Ventilator Mechanical Ventilator 10/14/19 08:00 45 10/14/19 08:00 67 10/14/19 07:24 78 20 98 45 78 20 45 Intake and Output 10/14/19 10/15/19 19:00 07:00 Intake Total 600 ml 320 ml Output Total 3100 ml Balance -2500 ml 320 ml Intake Free Water 160 ml Tube Feeding 440 ml 320 ml Output Urine Total 100 ml Hemodialysis UF 3000 ml Laboratory Tests 10/14/19 11:30: POC Whole Blood Glucose [Pending] 10/14/19 16:23: POC Whole Blood Glucose 104 10/15/19 03:15: White Blood Count 16.5H, Red Blood Count 3.28L, Hemoglobin 10.1L, Hematocrit 30.9L, Mean Corpuscular Volume 94, Mean Corpuscular Hemoglobin 30.7, Mean Corpuscular Hemoglobin Concent 32.6, Red Cell Distribution Width 14.8, Platelet Count 398, Mean Platelet Volume 5.2L, Neutrophils (%) (Auto) 84.3H, Lymphocytes (%) (Auto) 8.1L, Monocytes (%) (Auto) 4.6, Eosinophils (%) (Auto) 2.7, Basophils (%) (Auto) 0.4, Sodium Level 133L, Potassium Level 3.5, Chloride Level 97L, Carbon Dioxide Level 28, Anion Gap 8, Blood Urea Nitrogen 71H, Creatinine [Pending], Estimat Glomerular Filtration Rate [Pending], Glucose Level 112H, Calcium Level 8.8, Phosphorus Level 5.6H, Magnesium Level 2.7H, Total Bilirubin 0.3, Aspartate Amino Transf (AST/SGOT) 13L, Alanine Aminotransferase (ALT/SGPT) 6L, Alkaline Phosphatase 163H, Total Protein 6.4, Albumin 1.6L, Globulin 4.8, Albumin/Globulin Ratio 0.3L Height (Feet): 5 Height (Inches): 5.00 Weight (Pounds): 149 General Appearance: no apparent distress EENT: normal ENT inspection Neck: supple Cardiovascular: normal rate, gallop/S3 Abdomen: normal bowel sounds, non tender, soft Extremities: non-tender Inder Mccauley MD Oct 15, 2019 06:19
--- NOTE | 2019-10-15 07:17 | Hematology/Onc Progress Note ---
Assessment/Plan Assessment/Plan Assessment and Recs # Leukocytosis, now with gram positive bacteremias well as pna noted --> historically --> PPM site (pocket) infection (redness and pain, bacteremia) and likely pocket abscess - no vegetation seen on ABBIE --> is s'p pm removal and also pocket infection is better --> per cards recs in re to tach/davis --> wbc 15-->19-->17-->15-->13->12-->13-->12>13-->18-->9-->7-->16 --> ABX cefepime/levaquin--> vanc/angelo-> daptomycin --> ID recs are noted # Anemia of chronic disease due to underlying chronic medical issues, multifactorial --> Anemia workup has been reviewed, cw acd --> No evidence of hemolysis is noted, peripheral smear has been reviewed. --> Hgb goal >7. Transfuse prn. --> Epogen started --> Medications have been reviewed --> low threshold for gi evaluation in case has occult + --> hgb 7.1-->7.8-->8.9->9.2-->8.5-->9.7-->10-->8.8-->9.6-->8.7->8.6-->7.2->8.7- >9.1-->9.2-->9-->8.7-->9.3-->9.8-->10 --> 1 unit prbc 09/27 # Thrombocytois is likely reactive process, is s/p infection --> plt trend 610k-->706k-->354 --> p smear reviewed # Acute hypoxic respiratory failure s/p intubation 11/23- ?ARDS --> on vent/trach # Gram positive bacteremia- real bacteremia- 2ry to above and probable PNA --> per id care # JAVIER initially >2 --> on ivfs # Elevated d-dimer --> venous duplex and v/q scan # Dysphagia s/p peg # Thoracic aortic dissection s/p repair early 2017 # Psychiatric history on ativan/haldol # [place] resident # Dvt ppx --> heparin sq The timing of this note does not necessarily reflect the time of the patient was seen. Greatly appreciate consultation. Subjective Constitutional: Denies: no symptoms, chills, fever, malaise, weakness, other Cardiovascular: Denies: no symptoms, chest pain, edema, irregular heart rate, lightheadedness, palpitations, syncope, other Respiratory: Denies: no symptoms, cough, shortness of breath, SOB with excertion, SOB at rest, sputum, wheezing, other Genitourinary: Denies: no symptoms, burning, discharge, frequency, flank pain, hematuria, incontinence, pain, urgency, other Neurologic/Psychiatric: Denies: no symptoms, anxiety, depressed, emotional problems, headache, numbness, paresthesia, pre-existing deficit, seizure, tingling, tremors, weakness, other Endocrine: Denies: no symptoms, excessive sweating, flushing, intolerance to cold, intolerance to heat, increased hunger, increased thirst, increased urine, unexplained weight gain, unexplained weight loss, other Allergies: Coded Allergies: No Known Allergies (Unverified , 10/10/17) Subjective 09/16 on vent now, consulted in am pulm, on vent setting, labs noted, hep sq 09/17 meds noted, cbc noted, labs noted, no bleeding 09/18 is to undergo potential v/q scan given abg, labs noted, resless, on ativan, to get haldol today, roman ramesh 09/19 remains agitated, covering, with sacral wound seeping, likely cause of anemia, roman rn 09/26 restless, remains agitated, gtube ripped, eval with rn, and ifeoma consulted 09/27 remains on vent, agitated, seen by gi, hgb low, roman George to transfuse 1 unit prbc 09/28 meds noted, no bleeding, on vent, s/p blood tranfusion, cbc pending, roman ramesh 09/29 remains in the icu, roman rn in the am, agitated, on versed, fentanyl, restraints 09/30 in icu, trach to vent, on gtube feeds, fentanyl, agitated 10/01 in icu, roman Ayoub rn, no bleeding, sleeping, labs noted, hgb >9 10/02 sedated in icu, is on vent, roman rn, more alert and more conversive with face grimaces 10/03 labs have been reviewed, no bleeding, icu, meds reviewed, on fentanyl and versed, to consult psych 10/05 remains on fentanyl, also with restraints, no bleeding, cbc ordered 10/06 remains obtunded, though reactive when proded, labs pending from am 10/07 hypertensive, asleep, no bleeding, roman rn, no major night sweats\ 10/08 formula leaking from gtube site, no bleeding, with some minor residual 10/09 remains on gtube feeds, on lactulose, no major changes, confused but nods 10/10 labs reviewed, lactulose discontinued as having diarrhea, no bleeding 10/12 meds reviewed, no bleeding, heparin given, roman Starr rn in am, comfortable 10/13 labs are noted, no bleeding, cbc is ordered for today, somewhat agitated 10/14 has been complaining of pain and frowning, no bleeding, hgb reviewed Objective Objective Current Medications Medications (Trade) Dose Ordered Sig/Penny Route PRN Reason Start Time Stop Time Status Last Admin Dose Admin Acetaminophen (Tylenol) 325 mg Q6H PRN GT Temp >100.5 10/11/19 04:45 10/23/19 10:44 10/14/19 11:41 Ascorbic Acid (Vitamin C) 500 mg DAILY ORAL 10/11/19 09:00 11/05/19 08:59 10/14/19 08:49 Chlorhexidine Gluconate (Ling-Hex 2%) 1 applic DAILY@2000 TOPIC 10/11/19 20:00 12/22/19 19:59 10/14/19 20:56 Clonidine HCl (Catapres TTS-3) 1 patch QWEEK TDERMAL 10/14/19 12:00 01/12/20 11:59 10/14/19 11:51 Daptomycin 250 mg/ Sodium Chloride 55 ml @ 100 mls/hr Q48H IV 10/11/19 16:00 10/16/19 15:59 10/13/19 16:13 Dextrose (Dextrose 50%) 25 ml Q30M PRN IV Hypoglycemia 10/11/19 04:30 01/03/20 18:29 Dextrose (Dextrose 50%) 50 ml Q30M PRN IV Hypoglycemia 10/11/19 04:30 01/03/20 18:29 Diltiazem HCl (Cardizem Tab) 90 mg Q6HR GT 10/11/19 06:00 11/09/19 11:59 10/15/19 06:10 Docusate Sodium (Colace) 100 mg Q8HR GT 10/14/19 14:01 11/13/19 14:00 10/15/19 06:10 Epoetin Gelacio (Epoetin Gelacio(ESRD on dialysis)) 10,000 unit SUBQ 10/14/19 21:00 01/12/20 20:59 10/14/19 20:56 Haloperidol Lactate (Haldol) 5 mg Q6H PRN IM Agitation 10/11/19 05:00 11/22/19 10:59 10/11/19 12:34 Heparin Sodium (Porcine) (Heparin 5000 units/ml) 5,000 units EVERY 12 HOURS SUBQ 10/11/19 09:00 10/30/19 08:59 10/14/19 20:59 Insulin Aspart (NovoLOG) Q6HR SUBQ 10/11/19 06:00 01/03/20 20:59 Lansoprazole (Prevacid) 30 mg Q12HR GT 10/11/19 09:00 10/27/19 20:59 10/14/19 20:57 Lisinopril (PriniviL) 20 mg BID GT 10/11/19 09:00 11/08/19 17:59 10/14/19 17:23 Metoclopramide HCl (Reglan) 5 mg EVERY 6 HOURS GT 10/11/19 06:00 11/08/19 11:59 10/15/19 06:11 Metoprolol Tartrate (Lopressor) 25 mg Q12HR GT 10/11/19 09:00 01/07/20 20:59 10/14/19 20:58 Minoxidil (Loniten) 2.5 mg Q8HR ORAL 10/11/19 06:00 01/08/20 13:59 10/15/19 06:12 Morphine Sulfate (Morphine Sulfate) 2 mg Q4H PRN IVP For Pain 10/11/19 04:42 10/16/19 04:41 10/15/19 06:11 Polyethylene Glycol (Miralax) 17 gm BEDTIME ORAL 10/11/19 21:00 10/31/19 20:59 10/14/19 20:58 Risperidone (RisperDAL) 2 mg BEDTIME ORAL 10/11/19 21:00 11/19/19 20:59 10/14/19 20:57 Sertraline HCl (Zoloft) 100 mg BEDTIME GT 10/11/19 21:00 10/15/19 20:59 10/14/19 20:57 Sorbitol (sorbitoL) 30 ml EVERY 6 HOURS PRN GT Constipation 10/11/19 06:00 10/29/19 17:59 Vitamin B Complex/ Vit C/Folic Acid (Nephrovite) 1 tab DAILY ORAL 10/11/19 09:00 11/05/19 08:59 10/14/19 08:49 Zinc Sulfate (Zinc Sulfate) 220 mg DAILY ORAL 10/11/19 09:00 10/21/19 08:59 10/14/19 08:51 Last 24 Hour Vital Signs Date Time Temp Pulse Resp B/P (MAP) Pulse Ox O2 Delivery O2 Flow Rate FiO2 10/15/19 06:12 140/68 10/15/19 06:10 72 140/68 10/15/19 05:18 73 22 40 10/15/19 04:00 Mechanical Ventilator Mechanical Ventilator Mechanical Ventilator 10/15/19 04:00 98.0 73 25 146/76 (99) 97 10/15/19 03:45 69 10/15/19 03:33 40 10/15/19 03:24 70 21 40 10/15/19 01:30 69 20 40 10/15/19 00:00 98.1 68 23 137/62 (87) 93 10/15/19 00:00 Mechanical Ventilator Mechanical Ventilator Mechanical Ventilator 10/15/19 00:00 60 139/60 10/15/19 00:00 40 10/14/19 23:31 66 10/14/19 23:08 64 22 40 10/14/19 22:58 128/62 10/14/19 21:28 62 21 40 10/14/19 20:58 66 131/64 10/14/19 20:00 Mechanical Ventilator Mechanical Ventilator Mechanical Ventilator 10/14/19 20:00 68 10/14/19 20:00 97.7 64 20 124/55 (78) 93 10/14/19 19:30 65 20 40 10/14/19 17:41 40 10/14/19 17:23 133/64 10/14/19 17:23 79 133/64 10/14/19 16:54 79 21 45 10/14/19 16:00 Mechanical Ventilator Mechanical Ventilator Mechanical Ventilator 10/14/19 16:00 99.0 83 25 133/64 (87) 93 10/14/19 16:00 79 10/14/19 16:00 45 10/14/19 15:20 98.4 65 24 134/65 (88) 95 10/14/19 14:47 100.0 10/14/19 14:44 82 16 45 10/14/19 14:25 135/60 10/14/19 12:30 78 20 98 45 77 20 45 10/14/19 12:30 101.4 69 132/66 (88) 10/14/19 12:11 101.2 10/14/19 12:00 45 10/14/19 12:00 Mechanical Ventilator Mechanical Ventilator Mechanical Ventilator 10/14/19 12:00 101.7 72 25 181/69 (106) 93 10/14/19 11:59 102 10/14/19 11:51 181/80 10/14/19 11:40 100 192/87 10/14/19 10:32 76 20 45 10/14/19 09:20 80 22 45 10/14/19 09:00 70 139/63 10/14/19 09:00 139/63 10/14/19 08:00 98.1 70 25 139/63 (88) 94 10/14/19 08:00 Mechanical Ventilator Mechanical Ventilator Mechanical Ventilator 10/14/19 08:00 45 10/14/19 08:00 67 10/14/19 07:24 78 20 98 45 78 20 45 10/14/19 05:22 76 152/88 10/14/19 05:21 152/88 10/14/19 05:02 77 24 45 10/14/19 04:00 98.0 77 20 155/90 (111) 93 10/14/19 04:00 73 10/14/19 04:00 45 10/14/19 04:00 Mechanical Ventilator Mechanical Ventilator Mechanical Ventilator 10/14/19 02:44 81 21 45 10/14/19 00:47 68 20 98 Mechanical Ventilator 45 68 20 45 10/14/19 00:00 97.3 71 20 152/88 (109) 96 10/14/19 00:00 Mechanical Ventilator Mechanical Ventilator Mechanical Ventilator 10/13/19 23:50 70 10/13/19 23:48 73 152/80 10/13/19 22:30 78 24 45 10/13/19 21:20 142/73 10/13/19 20:40 75 145/69 10/13/19 20:40 74 25 45 10/13/19 20:00 45 10/13/19 20:00 Mechanical Ventilator Mechanical Ventilator Mechanical Ventilator 10/13/19 20:00 97.5 80 20 142/81 (101) 99 10/13/19 19:31 69 10/13/19 18:56 68 22 99 Mechanical Ventilator 45 69 21 45 10/13/19 17:30 145/80 10/13/19 17:30 97 145/80 10/13/19 16:55 71 20 45 10/13/19 16:42 45 10/13/19 16:37 Mechanical Ventilator Mechanical Ventilator Mechanical Ventilator 10/13/19 16:00 98.9 82 22 145/80 (101) 97 10/13/19 15:20 82 10/13/19 15:05 82 26 45 10/13/19 14:04 153/81 10/13/19 13:49 79 23 100 Mechanical Ventilator 45 79 23 45 10/13/19 12:23 82 154/71 10/13/19 12:07 Mechanical Ventilator Mechanical Ventilator Mechanical Ventilator 10/13/19 12:00 97.5 80 24 154/71 (98) 99 10/13/19 12:00 45 10/13/19 11:42 79 10/13/19 11:00 81 25 45 10/13/19 09:00 70 24 45 10/13/19 08:38 69 144/64 10/13/19 08:37 144/64 10/13/19 08:04 69 21 100 Mechanical Ventilator 45 69 21 45 10/13/19 08:00 Mechanical Ventilator Mechanical Ventilator Mechanical Ventilator 10/13/19 08:00 45 10/13/19 08:00 98.8 69 24 144/64 (90) 97 10/13/19 07:49 70 Intake and Output 10/14/19 10/15/19 19:00 07:00 Intake Total 600 ml 320 ml Output Total 3100 ml Balance -2500 ml 320 ml Intake Free Water 160 ml Tube Feeding 440 ml 320 ml Output Urine Total 100 ml Hemodialysis UF 3000 ml # Bowel Movements 1 Labs Test 10/12/19 12:05 10/12/19 16:45 10/13/19 03:48 10/13/19 12:19 POC Whole Blood Glucose 101 MG/DL (74-106) 103 MG/DL (74-106) 97 MG/DL (74-106) White Blood Count 7.2 K/UL (4.8-10.8) Red Blood Count 3.28 M/UL (4.20-5.40) Hemoglobin 10.0 G/DL (12.0-16.0) Hematocrit 30.8 % (37.0-47.0) Mean Corpuscular Volume 94 FL (80-99) Mean Corpuscular Hemoglobin 30.3 PG (27.0-31.0) Mean Corpuscular Hemoglobin Concent 32.4 G/DL (32.0-36.0) Red Cell Distribution Width 14.8 % (11.6-14.8) Platelet Count 449 K/UL (150-450) Mean Platelet Volume 5.3 FL (6.5-10.1) Neutrophils (%) (Auto) 72.1 % (45.0-75.0) Lymphocytes (%) (Auto) 19.4 % (20.0-45.0) Monocytes (%) (Auto) 6.6 % (1.0-10.0) Eosinophils (%) (Auto) 0.8 % (0.0-3.0) Basophils (%) (Auto) 1.1 % (0.0-2.0) Sodium Level 132 MMOL/L (136-145) Potassium Level 3.6 MMOL/L (3.5-5.1) Chloride Level 98 MMOL/L (98-107) Carbon Dioxide Level 23 MMOL/L (21-32) Anion Gap 11 mmol/L (5-15) Blood Urea Nitrogen 81 mg/dL (7-18) Creatinine 2.8 MG/DL (0.55-1.30) Estimat Glomerular Filtration Rate 18.1 mL/min (>60) Glucose Level 111 MG/DL (74-106) Uric Acid 7.1 MG/DL (2.6-7.2) Calcium Level 9.3 MG/DL (8.5-10.1) Phosphorus Level 4.6 MG/DL (2.5-4.9) Magnesium Level 3.2 MG/DL (1.8-2.4) Total Bilirubin 0.3 MG/DL (0.2-1.0) Aspartate Amino Transf (AST/SGOT) 24 U/L (15-37) Alanine Aminotransferase (ALT/SGPT) 13 U/L (12-78) Alkaline Phosphatase 169 U/L (46-116) C-Reactive Protein, Quantitative 4.7 mg/dL (0.00-0.90) Pro-B-Type Natriuretic Peptide > 46041 pg/mL (0-125) Total Protein 6.6 G/DL (6.4-8.2) Albumin 1.7 G/DL (3.4-5.0) Globulin 4.9 g/dL Albumin/Globulin Ratio 0.3 (1.0-2.7) Test 10/13/19 17:24 10/13/19 23:51 10/14/19 05:19 10/14/19 11:30 POC Whole Blood Glucose 96 MG/DL (74-106) 107 MG/DL (74-106) Test 10/14/19 16:23 10/15/19 03:15 POC Whole Blood Glucose 104 MG/DL (74-106) White Blood Count 16.5 K/UL (4.8-10.8) Red Blood Count 3.28 M/UL (4.20-5.40) Hemoglobin 10.1 G/DL (12.0-16.0) Hematocrit 30.9 % (37.0-47.0) Mean Corpuscular Volume 94 FL (80-99) Mean Corpuscular Hemoglobin 30.7 PG (27.0-31.0) Mean Corpuscular Hemoglobin Concent 32.6 G/DL (32.0-36.0) Red Cell Distribution Width 14.8 % (11.6-14.8) Platelet Count 398 K/UL (150-450) Mean Platelet Volume 5.2 FL (6.5-10.1) Neutrophils (%) (Auto) 84.3 % (45.0-75.0) Lymphocytes (%) (Auto) 8.1 % (20.0-45.0) Monocytes (%) (Auto) 4.6 % (1.0-10.0) Eosinophils (%) (Auto) 2.7 % (0.0-3.0) Basophils (%) (Auto) 0.4 % (0.0-2.0) Sodium Level 133 MMOL/L (136-145) Potassium Level 3.5 MMOL/L (3.5-5.1) Chloride Level 97 MMOL/L (98-107) Carbon Dioxide Level 28 MMOL/L (21-32) Anion Gap 8 mmol/L (5-15) Blood Urea Nitrogen 71 mg/dL (7-18) Glucose Level 112 MG/DL (74-106) Calcium Level 8.8 MG/DL (8.5-10.1) Phosphorus Level 5.6 MG/DL (2.5-4.9) Magnesium Level 2.7 MG/DL (1.8-2.4) Total Bilirubin 0.3 MG/DL (0.2-1.0) Aspartate Amino Transf (AST/SGOT) 13 U/L (15-37) Alanine Aminotransferase (ALT/SGPT) 6 U/L (12-78) Alkaline Phosphatase 163 U/L (46-116) Total Protein 6.4 G/DL (6.4-8.2) Albumin 1.6 G/DL (3.4-5.0) Globulin 4.8 g/dL Albumin/Globulin Ratio 0.3 (1.0-2.7) Height (Feet): 5 Height (Inches): 5.00 Weight (Pounds): 145 Objective Physical Exam: Vitals: reviewed General: NAD HEENT: nc, at Neck: supple ++tracn/vent Chest: clear breath sounds bilaterally Cardiovascular: RRR, no s3, s4 Abdomen: soft, nontender, nd +gtube Extremities: no cce, normal range of motion Neuro: alert Evan Muhammad MD Oct 15, 2019 07:17
[2019-10-15 07:21] LABS: CREATININE 2.4 MG/DL (0.55-1.30)
[2019-10-15] MEDS: Nephrovite tab (Rena-Vite) ORAL SCH (08:08)
[2019-10-15] MEDS: Ascorbic Acid 500mg tab ORAL SCH (08:08)
[2019-10-15] MEDS: Lisinopril 20mg tab GT SCH ×2 (08:08→17:32)
[2019-10-15] MEDS: Heparin 5000 units/ml inj SUBQ SCH ×2 (08:11→20:30)
[2019-10-15] MEDS: Zinc Sulfate 220mg ORAL SCH (08:13)
--- NOTE | 2019-10-15 10:27 | Pulmonology Progress Note ---
Raffy Castroet [employer] 10/15/19 1027: Subjective ROS Limited/Unobtainable: No Allergies: Coded Allergies: No Known Allergies (Unverified , 10/10/17) Subjective in PAULIE on vent AC with FiO2 40% s/p HD 10/13 no signs of resp distress on current settings fevers yesterday afternoon, now afebrile, this am leukocytosis with WBC 16.5 no signs of resp distress Objective Last 24 Hour Vital Signs Date Time Temp Pulse Resp B/P (MAP) Pulse Ox O2 Delivery O2 Flow Rate FiO2 10/15/19 09:03 72 25 40 40 10/15/19 08:08 72 142/68 10/15/19 08:08 142/68 10/15/19 08:00 97.9 72 24 142/68 (92) 91 10/15/19 08:00 40 10/15/19 08:00 Mechanical Ventilator Mechanical Ventilator Mechanical Ventilator 10/15/19 07:45 76 10/15/19 07:33 76 22 40 10/15/19 06:12 140/68 10/15/19 06:10 72 140/68 10/15/19 05:18 73 22 40 10/15/19 04:00 Mechanical Ventilator Mechanical Ventilator Mechanical Ventilator 10/15/19 04:00 98.0 73 25 146/76 (99) 97 10/15/19 03:45 69 10/15/19 03:33 40 10/15/19 03:24 70 21 40 10/15/19 01:30 69 20 40 10/15/19 00:00 98.1 68 23 137/62 (87) 93 10/15/19 00:00 Mechanical Ventilator Mechanical Ventilator Mechanical Ventilator 10/15/19 00:00 60 139/60 10/15/19 00:00 40 10/14/19 23:31 66 10/14/19 23:08 64 22 40 10/14/19 22:58 128/62 10/14/19 21:28 62 21 40 10/14/19 20:58 66 131/64 10/14/19 20:00 Mechanical Ventilator Mechanical Ventilator Mechanical Ventilator 10/14/19 20:00 68 10/14/19 20:00 97.7 64 20 124/55 (78) 93 10/14/19 19:30 65 20 40 10/14/19 17:41 40 10/14/19 17:23 133/64 10/14/19 17:23 79 133/64 10/14/19 16:54 79 21 45 10/14/19 16:00 Mechanical Ventilator Mechanical Ventilator Mechanical Ventilator 10/14/19 16:00 99.0 83 25 133/64 (87) 93 10/14/19 16:00 79 10/14/19 16:00 45 10/14/19 15:20 98.4 65 24 134/65 (88) 95 10/14/19 14:47 100.0 10/14/19 14:44 82 16 45 10/14/19 14:25 135/60 10/14/19 12:30 78 20 98 45 77 20 45 10/14/19 12:30 101.4 69 132/66 (88) 10/14/19 12:11 101.2 10/14/19 12:00 45 10/14/19 12:00 Mechanical Ventilator Mechanical Ventilator Mechanical Ventilator 10/14/19 12:00 101.7 72 25 181/69 (106) 93 10/14/19 11:59 102 10/14/19 11:51 181/80 10/14/19 11:40 100 192/87 10/14/19 10:32 76 20 45 Intake and Output 10/14/19 10/15/19 19:00 07:00 Intake Total 600 ml 360 ml Output Total 3100 ml Balance -2500 ml 360 ml Intake Free Water 160 ml Tube Feeding 440 ml 360 ml Output Urine Total 100 ml Hemodialysis UF 3000 ml # Bowel Movements 1 Objective General Appearance: no apparent distress, bedridden middle age chronically ill looking female on vent AC 500-20- 40%, PEEP 5, awake, calm Lines, tubes and drains: left jugular HD catheter HEENT: normocephalic, atraumatic, anicteric, trach - Shiley #7 cuffed XLT, secretions small amount, yellow color , thick consistency Respiratory/Chest: no accessory muscle use, few isolated rhonchi Cardiovascular/Chest: normal rate, regular rhythm - SR on tele Abdomen: normal bowel sounds, non tender, soft, G tube Genitourinary/Rectal: Norman Extremities: no edema Skin Exam: warm/dry, multiple tattoos all over the body Neurologic: awake, no gross focal Musculoskeletal: atrophy - BLE Laboratory Tests 10/14/19 11:30: POC Whole Blood Glucose [Pending] 8/31/20 16:23: POC Whole Blood Glucose 104 10/15/19 03:15: White Blood Count 16.5H, Red Blood Count 3.28L, Hemoglobin 10.1L, Hematocrit 30.9L, Mean Corpuscular Volume 94, Mean Corpuscular Hemoglobin 30.7, Mean Corpuscular Hemoglobin Concent 32.6, Red Cell Distribution Width 14.8, Platelet Count 398, Mean Platelet Volume 5.2L, Neutrophils (%) (Auto) 84.3H, Lymphocytes (%) (Auto) 8.1L, Monocytes (%) (Auto) 4.6, Eosinophils (%) (Auto) 2.7, Basophils (%) (Auto) 0.4, Sodium Level 133L, Potassium Level 3.5, Chloride Level 97L, Carbon Dioxide Level 28, Anion Gap 8, Blood Urea Nitrogen 71H, Creatinine 2.4H, Estimat Glomerular Filtration Rate 21.7, Glucose Level 112H, Calcium Level 8.8, Phosphorus Level 5.6H, Magnesium Level 2.7H, Total Bilirubin 0.3, Aspartate Amino Transf (AST/SGOT) 13L, Alanine Aminotransferase (ALT/SGPT) 6L, Alkaline Phosphatase 163H, Total Protein 6.4, Albumin 1.6L, Globulin 4.8, Albumin/Globulin Ratio 0.3L Current Medications Medications (Trade) Dose Ordered Sig/Penny Route PRN Reason Start Time Stop Time Status Last Admin Dose Admin Acetaminophen (Tylenol) 325 mg Q6H PRN GT Temp >100.5 10/11/19 04:45 10/23/19 10:44 10/14/19 11:41 Ascorbic Acid (Vitamin C) 500 mg DAILY ORAL 10/11/19 09:00 11/05/19 08:59 10/15/19 08:08 Chlorhexidine Gluconate (Ling-Hex 2%) 1 applic DAILY@2000 TOPIC 10/11/19 20:00 12/22/19 19:59 10/14/19 20:56 Clonidine HCl (Catapres TTS-3) 1 patch QWEEK TDERMAL 10/14/19 12:00 01/12/20 11:59 10/14/19 11:51 Daptomycin 250 mg/ Sodium Chloride 55 ml @ 100 mls/hr Q48H IV 10/11/19 16:00 10/16/19 15:59 10/13/19 16:13 Dextrose (Dextrose 50%) 25 ml Q30M PRN IV Hypoglycemia 10/11/19 04:30 01/03/20 18:29 Dextrose (Dextrose 50%) 50 ml Q30M PRN IV Hypoglycemia 10/11/19 04:30 01/03/20 18:29 Diltiazem HCl (Cardizem Tab) 90 mg Q6HR GT 10/11/19 06:00 11/09/19 11:59 10/15/19 06:10 Docusate Sodium (Colace) 100 mg Q8HR GT 10/14/19 14:01 11/13/19 14:00 10/15/19 06:10 Epoetin Gelacoi (Epoetin Gelacio(ESRD on dialysis)) 10,000 unit SUBQ 10/14/19 21:00 01/12/20 20:59 10/14/19 20:56 Haloperidol Lactate (Haldol) 5 mg Q6H PRN IM Agitation 10/11/19 05:00 11/22/19 10:59 10/11/19 12:34 Heparin Sodium (Porcine) (Heparin 5000 units/ml) 5,000 units EVERY 12 HOURS SUBQ 10/11/19 09:00 10/30/19 08:59 10/15/19 08:11 Insulin Aspart (NovoLOG) Q6HR SUBQ 10/11/19 06:00 01/03/20 20:59 Lansoprazole (Prevacid) 30 mg Q12HR GT 10/11/19 09:00 10/27/19 20:59 10/15/19 08:08 Lisinopril (PriniviL) 20 mg BID GT 10/11/19 09:00 11/08/19 17:59 10/15/19 08:08 Metoclopramide HCl (Reglan) 5 mg EVERY 6 HOURS GT 10/11/19 06:00 11/08/19 11:59 10/15/19 06:11 Metoprolol Tartrate (Lopressor) 25 mg Q12HR GT 10/11/19 09:00 01/07/20 20:59 10/15/19 08:08 Minoxidil (Loniten) 2.5 mg Q8HR ORAL 10/11/19 06:00 01/08/20 13:59 10/15/19 06:12 Morphine Sulfate (Morphine Sulfate) 2 mg Q4H PRN IVP For Pain 10/11/19 04:42 10/16/19 04:41 10/15/19 06:11 Polyethylene Glycol (Miralax) 17 gm BEDTIME ORAL 10/11/19 21:00 10/31/19 20:59 10/14/19 20:58 Risperidone (RisperDAL) 2 mg BEDTIME ORAL 10/11/19 21:00 11/19/19 20:59 10/14/19 20:57 Sertraline HCl (Zoloft) 100 mg BEDTIME GT 10/11/19 21:00 10/15/19 20:59 10/14/19 20:57 Sorbitol (sorbitoL) 30 ml EVERY 6 HOURS PRN GT Constipation 10/11/19 06:00 10/29/19 17:59 Vitamin B Complex/ Vit C/Folic Acid (Nephrovite) 1 tab DAILY ORAL 10/11/19 09:00 11/05/19 08:59 10/15/19 08:08 Zinc Sulfate (Zinc Sulfate) 220 mg DAILY ORAL 10/11/19 09:00 10/21/19 08:59 10/15/19 08:13 Assessment/Plan Assessment/Plan ASSESSMENT Acute on chronic hypoxemic respiratory failure ( trach dependent), now on vent Tracheostomy status, s/p change to cuffed trach Sepsis Pulmonary edema Pleural effusion -worsening left pl effusion s/p thoracentesis L pleural effusion 09/26 -900 ml Pneumonia with MDR Pseudomonas UTI CHF ? cardiorenal COPD Acute kidney injury and chronic kidney disease-requiring start of HD Hypertension Atrial fibrillation Moderate pulm HTN Moderate AR Dysphagia , feeding by G-tube Electrolyte abnormalities Anemia Toxic metabolic encephalopathy likely due to sepsis and ARF HTN PAF Fevers. leukocytosis PLAN OF CARE PAULIE on vent AC trach changed 8/4 pm from uncuffed to cuffed Shiley#[address] chest w/out contrast: - Bilateral pleural effusions, right greater than left, with bilateral lower lobe consolidation or volume loss. -Ground-glass densities in the upper lobes bilaterally. This is not specific. -Tracheostomy. -Increased superior mediastinal density. Stability of adenopathy cannot be excluded. -Atherosclerotic change. -Gastrostomy. -Ascites. -Left renal stent with left hydronephrosis and renal atrophy. VQ scan -> low probability for PE worsening resp status was due to need for HD, now after HD started, resp status improving, down to PEEP 5 and AC 20 trach care , pulmonary toilet Mucomyst was prior dc given lots of thin secretions, continue Duoneb prn rapid COVID 19 NGT x3 off Fentanyl gtt since 10/09 FiO2 down to 40% last ABG stable 10/09 CXR today given fevers and leukocytosis not tolerated CPAP trials 10/10 - went to resp distress not done 10/11 , 10/12 , 10/13 FiO2 down to 40% continue CPAP trials as tolerated may continue in subacute upon discharge s/p thoracentesis L pleural effusion 09/26 am -> 900 ml fluid analysis noted, unlikely empyema given small # of WBC fup with fluid cx ( apparently never sent despite orders) cytology -> NGT, no malignant cells aspiration precautions venous Duplex BLE -> NGT DVT prophylaxis pulm toilet, BP elevated BP regimen optimized as per nephro monitor volumes was on gentle IVF-> dc s/p prior diuretic-Lasix require initiation of HD continue further HD as per nephro with close monitoring of volumes, renal parameters and lytes -per nephro recs abx as per ID- s/p gent x 1, now on Vanco and Zerbaxa , completed 10/02 SCX 09/15 + Proteus, SCX 09/22 Pseudomonas MDR UCX 09/14 + Providencia , UCX 09/22 VRE - K only BCX 09/14 Staph epidermidis, BCX 09/15 NGT , BCX 09/22 and 09/26 - NGTD UCX 10/07 + VRE, Laura- per ID started on Dapto 10/10- ECHO with pEF , moderate pulm HTN and moderate AR BP management with current regimen of BB, Cardizem and Hydralazine, remains in SR monitor HH with goal to keep Hgb >7, heme on board on EPO supportive care pain management wound care bowel regimen stable for dc from pulm standpoint dc plan in progress case discussed and evaluated by supervising physician Juve Martinez MD 10/15/19 3605: Subjective Allergies: Coded Allergies: No Known Allergies (Unverified , 10/10/17) Assessment/Plan Assessment/Plan Patient seen and examined with [employer]. Agree with above A&P as it reflects our joint deliberations. Yara Castro NP Oct 15, 2019 10:27 Juve Mratinez MD Oct 15, 2019 17:57
--- NOTE | 2019-10-15 12:07 | Infectious Diseases Prog Note ---
Assessment/Plan 49yo F with: Fever, recurrent Leukocytosis, recurrent- r/o new infection Acute hypoxic resp failure: Now on vent, worsening, FiO2 100% > 80% 09/27 > 60% >40% 10/08 >30% 10/09 >40% 10/14 Pneumonia, COVID19 neg x3 - MDR PsA pneumonia,s pr x 10/07 CXR: Bilateral infiltrates versus edema, left greater than right pleural effusions are again demonstrated, unchanged. There is slightly better inspiration currently. 09/29 CXR: Bilateral edema versus infiltrates appears slightly worse than on the prior study. There is probably some pleural fluid on the left. 09/26 S/P thoracentesis, 900cc removed, only 67 WBC in fluid analysis, unlikely empyema 09/26 CXR: Worsening R perihilar opacity 09/26 BCx Neg 09/24 CXR: Previously demonstrated right lateral basilar lucency is no longer evident, was presumably a skin fold artifact. Bilateral infiltrates and left pleural effusion are probably unchanged allowing for slight differences in technique. 09/22 Resp cx + MDR PsA (S-gent; I-colistin; R-levofloxacin, Zosyn, angelo) 09/22 BCx NTD 09/22 CXR: worsening BL pna 09/22 UA w/ persistent pyuria, now on HD, UCx +VRE, most likely colonizer as improving wo tx for this 09/19 V/Q scan, low probability of PE 09/18 Rapid COVID PCR neg 09/18 CT chest: Markedly suboptimal examination due to lack of IV contrast material. Bilateral pleural effusions, right greater than left, with bilateral lower lobe consolidation or volume loss. Ground glass densities in the upper lobes bilaterally. This is not specific. Tracheostomy. Increased superior mediastinal density. Stability of adenopathy cannot be excluded. Atherosclerotic change. Gastrostomy. Ascites. Left renal stent with left hydronephrosis and renal atrophy. 09/17 Chest US: Trace right and small left pleural effusions. No safe window identified for bedside thoracentesis. Note that the majority of the left pleural effusion is subpulmonic. 09/16 CXR: Worsening of right lung infiltrates and right effusion. V. duplex: NO DVT D-dimer elevated 09/15 Rapid COVID PCR neg 09/15 Sp cx ESBL P. mirablis 09/14 CXR: Bilateral airspace opacities, preferentially involving the right lung, consistent with multifocal infiltrate. Trace bilateral pleural effusions. No pneumothorax. Rapid COVID PCR neg Urine legionella neg 09/16 GPC bacteremia, real vs contaminant; does have hx of infected PPM- 09/14 Bcx 2/4 S. epidermis; 09/15, , Bcx Neg 2d echo: no vegetations seen UTI, recurrent / u/a wbc tnct, nit neg, leuk +3; ucx >100k MDR P. stuarti (S Ceftriaxone, Meropenem) 09/22 UA w/ ongoing pyuria, unchanged 10/07 u/a wbc tnct, nit neg, leuk ; ucx >100k VRE Unstageable sacral ulceration JAVIER on CKD --> now on HD Renal US: Limited exam due to abdominal ascites and shadowing from bowel gas. CT recommended for more sensitive evaluation. Moderate right hydronephrosis. Increased renal parenchymal echogenicity suggesting intrinsic/ medical renal disease. Question indwelling left ureteral stent versus artifact. Bladder not visualized. 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 epi-11/2018, sp > 6weeks IV vancomycin 11/27 SP ABBIE: no evidence for vegetation on any of the valves 11/26/18 SP PPM removal: OR findings:The fibrous capsule enclosing the generator was then opened and there was a [id number] amount of yellowish fluid drainage. The generator was then removed.Atrial and ventricular leads were detached. The necrotic tissue of the pocket was then removed and the pocket was flushed with an antibiotic solution. Capsule, wound tissue and lead tip cx: Neg 2d echo: no vegetation seen US chest: 4.6 x 3.4 x 0.9 cm hypoechoic/anechoic area overlying left chest pacemaker power pack. This could represent either a discrete fluid collection or a focal area of very edematous tissue. Infected fluid pocket also possible. 11/18 Bcx 3/4 S. epi; 11/20 Bcx neg; 11/24 Bcx Neg; 11/27 Bcx Neg Hx of PNA 11/2019? sp cx PsA (arnett S), ABC (I Ceftriaxone; otherwise negative) Sp cx MRSA, ABC (I Ceftriaxone; otherwise S) PMH: Afib HTN Dysphagia sp GT Aortic dissection s/p repair 2017, S/p PPM Parkinson's Disease Schizophrenia Anxiety COPD Chronic resp failure s/p trach [facility]al [facility] Plan: cont IV Daptomycin #5/5 for VRE UTI -monitor CPK 10/03 SP Zerbaxa #6, gent #7 for MDR PsA pna 09/29 SP vanco #15 for S.epi in BCx 09/27 SP angelo #13 8/ SP Cefepime #3, Levaquin #3 Monitor CBC/CMP, temperatures trach/ peg care Aspiration precautions repeat cultures and CXR not clear for discharge yet D/w RN Thank you for this consultation. Will continue to follow along with you. Subjective Allergies: Coded Allergies: No Known Allergies (Unverified , 10/10/17) Tm 101.4; afebrile in ~24hrs wbc increased to 16 Objective Last 24 Hour Vital Signs Date Time Temp Pulse Resp B/P (MAP) Pulse Ox O2 Delivery O2 Flow Rate FiO2 10/15/19 11:15 86 25 40 40 10/15/19 09:03 72 25 40 40 10/15/19 08:08 72 142/68 10/15/19 08:08 142/68 10/15/19 08:00 97.9 72 24 142/68 (92) 91 10/15/19 08:00 40 10/15/19 08:00 Mechanical Ventilator Mechanical Ventilator Mechanical Ventilator 10/15/19 07:45 76 10/15/19 07:33 76 22 40 10/15/19 06:12 140/68 10/15/19 06:10 72 140/68 10/15/19 05:18 73 22 40 10/15/19 04:00 Mechanical Ventilator Mechanical Ventilator Mechanical Ventilator 10/15/19 04:00 98.0 73 25 146/76 (99) 97 10/15/19 03:45 69 10/15/19 03:33 40 10/15/19 03:24 70 21 40 10/15/19 01:30 69 20 40 10/15/19 00:00 98.1 68 23 137/62 (87) 93 10/15/19 00:00 Mechanical Ventilator Mechanical Ventilator Mechanical Ventilator 10/15/19 00:00 60 139/60 10/15/19 00:00 40 10/14/19 23:31 66 10/14/19 23:08 64 22 40 10/14/19 22:58 128/62 8/31/20 21:28 62 21 40 10/14/19 20:58 66 131/64 10/14/19 20:00 Mechanical Ventilator Mechanical Ventilator Mechanical Ventilator 10/14/19 20:00 68 10/14/19 20:00 97.7 64 20 124/55 (78) 93 10/14/19 19:30 65 20 40 10/14/19 17:41 40 10/14/19 17:23 133/64 10/14/19 17:23 79 133/64 10/14/19 16:54 79 21 45 10/14/19 16:00 Mechanical Ventilator Mechanical Ventilator Mechanical Ventilator 10/14/19 16:00 99.0 83 25 133/64 (87) 93 10/14/19 16:00 79 10/14/19 16:00 45 10/14/19 15:20 98.4 65 24 134/65 (88) 95 10/14/19 14:47 100.0 10/14/19 14:44 82 16 45 10/14/19 14:25 135/60 10/14/19 12:30 78 20 98 45 77 20 45 10/14/19 12:30 101.4 69 132/66 (88) 10/14/19 12:11 101.2 10/14/19 12:00 45 10/14/19 12:00 Mechanical Ventilator Mechanical Ventilator Mechanical Ventilator 10/14/19 12:00 101.7 72 25 181/69 (106) 93 10/14/19 11:59 102 Height (Feet): 5 Height (Inches): 5.00 Weight (Pounds): 145 Gen: no distress Cardiovascular: RrR, S1 S2 normal Respiratory: decreased breath sounds Abdomen: soft, non-tender, present bowel sounds Extremities: no edema, no tenderness Laboratory Tests Test 10/14/19 16:23 10/15/19 03:15 10/15/19 11:47 POC Whole Blood Glucose 104 MG/DL (74-106) 109 MG/DL (74-106) H White Blood Count 16.5 K/UL (4.8-10.8) H Red Blood Count 3.28 M/UL (4.20-5.40) L Hemoglobin 10.1 G/DL (12.0-16.0) L Hematocrit 30.9 % (37.0-47.0) L Mean Corpuscular Volume 94 FL (80-99) Mean Corpuscular Hemoglobin 30.7 PG (27.0-31.0) Mean Corpuscular Hemoglobin Concent 32.6 G/DL (32.0-36.0) Red Cell Distribution Width 14.8 % (11.6-14.8) Platelet Count 398 K/UL (150-450) Mean Platelet Volume 5.2 FL (6.5-10.1) L Neutrophils (%) (Auto) 84.3 % (45.0-75.0) H Lymphocytes (%) (Auto) 8.1 % (20.0-45.0) L Monocytes (%) (Auto) 4.6 % (1.0-10.0) Eosinophils (%) (Auto) 2.7 % (0.0-3.0) Basophils (%) (Auto) 0.4 % (0.0-2.0) Sodium Level 133 MMOL/L (136-145) L Potassium Level 3.5 MMOL/L (3.5-5.1) Chloride Level 97 MMOL/L (98-107) L Carbon Dioxide Level 28 MMOL/L (21-32) Anion Gap 8 mmol/L (5-15) Blood Urea Nitrogen 71 mg/dL (7-18) H Creatinine 2.4 MG/DL (0.55-1.30) H Estimat Glomerular Filtration Rate 21.7 mL/min (>60) Glucose Level 112 MG/DL (74-106) H Calcium Level 8.8 MG/DL (8.5-10.1) Phosphorus Level 5.6 MG/DL (2.5-4.9) H Magnesium Level 2.7 MG/DL (1.8-2.4) H Total Bilirubin 0.3 MG/DL (0.2-1.0) Aspartate Amino Transf (AST/SGOT) 13 U/L (15-37) L Alanine Aminotransferase (ALT/SGPT) 6 U/L (12-78) L Alkaline Phosphatase 163 U/L (46-116) H Total Protein 6.4 G/DL (6.4-8.2) Albumin 1.6 G/DL (3.4-5.0) L Globulin 4.8 g/dL Albumin/Globulin Ratio 0.3 (1.0-2.7) L Current Medications Medications (Trade) Dose Ordered Sig/Penny Route PRN Reason Start Time Stop Time Status Last Admin Dose Admin Acetaminophen (Tylenol) 325 mg Q6H PRN GT Temp >100.5 10/11/19 04:45 10/23/19 10:44 10/14/19 11:41 Ascorbic Acid (Vitamin C) 500 mg DAILY ORAL 10/11/19 09:00 11/05/19 08:59 10/15/19 08:08 Chlorhexidine Gluconate (Ling-Hex 2%) 1 applic DAILY@2000 TOPIC 10/11/19 20:00 12/22/19 19:59 10/14/19 20:56 Clonidine HCl (Catapres TTS-3) 1 patch QWEEK TDERMAL 10/14/19 12:00 01/12/20 11:59 10/14/19 11:51 Daptomycin 250 mg/ Sodium Chloride 55 ml @ 100 mls/hr Q48H IV 10/11/19 16:00 10/16/19 15:59 10/13/19 16:13 Dextrose (Dextrose 50%) 25 ml Q30M PRN IV Hypoglycemia 10/11/19 04:30 01/03/20 18:29 Dextrose (Dextrose 50%) 50 ml Q30M PRN IV Hypoglycemia 10/11/19 04:30 01/03/20 18:29 Diltiazem HCl (Cardizem Tab) 90 mg Q6HR GT 10/11/19 06:00 11/09/19 11:59 10/15/19 06:10 Docusate Sodium (Colace) 100 mg Q8HR GT 10/14/19 14:01 11/13/19 14:00 10/15/19 06:10 Epoetin Gelacio (Epoetin Gelacio(ESRD on dialysis)) 10,000 unit MON-MON-MON SUBQ 10/14/19 21:00 01/12/20 20:59 10/14/19 20:56 Haloperidol Lactate (Haldol) 5 mg Q6H PRN IM Agitation 10/11/19 05:00 11/22/19 10:59 10/11/19 12:34 Heparin Sodium (Porcine) (Heparin 5000 units/ml) 5,000 units EVERY 12 HOURS SUBQ 10/11/19 09:00 10/30/19 08:59 10/15/19 08:11 Insulin Aspart (NovoLOG) Q6HR SUBQ 10/11/19 06:00 01/03/20 20:59 Lansoprazole (Prevacid) 30 mg Q12HR GT 10/11/19 09:00 10/27/19 20:59 10/15/19 08:08 Lisinopril (PriniviL) 20 mg BID GT 10/11/19 09:00 11/08/19 17:59 10/15/19 08:08 Metoclopramide HCl (Reglan) 5 mg EVERY 6 HOURS GT 10/11/19 06:00 11/08/19 11:59 10/15/19 06:11 Metoprolol Tartrate (Lopressor) 25 mg Q12HR GT 10/11/19 09:00 01/07/20 20:59 10/15/19 08:08 Minoxidil (Loniten) 2.5 mg Q8HR ORAL 10/11/19 06:00 01/08/20 13:59 10/15/19 06:12 Morphine Sulfate (Morphine Sulfate) 2 mg Q4H PRN IVP For Pain 10/11/19 04:42 10/16/19 04:41 10/15/19 06:11 Polyethylene Glycol (Miralax) 17 gm BEDTIME ORAL 10/11/19 21:00 10/31/19 20:59 10/14/19 20:58 Risperidone (RisperDAL) 2 mg BEDTIME ORAL 10/11/19 21:00 11/19/19 20:59 10/14/19 20:57 Sertraline HCl (Zoloft) 100 mg BEDTIME GT 10/11/19 21:00 10/15/19 20:59 10/14/19 20:57 Sorbitol (sorbitoL) 30 ml EVERY 6 HOURS PRN GT Constipation 10/11/19 06:00 10/29/19 17:59 Vitamin B Complex/ Vit C/Folic Acid (Nephrovite) 1 tab DAILY ORAL 10/11/19 09:00 11/05/19 08:59 10/15/19 08:08 Zinc Sulfate (Zinc Sulfate) 220 mg DAILY ORAL 10/11/19 09:00 10/21/19 08:59 10/15/19 08:13 Doreen Nino M.D. Oct 15, 2019 12:07
--- NOTE | 2019-10-15 14:01 | Surgery Progress Note ---
Surgery Progress Note Subjective Additional Comments no acute events Objective Last 24 Hour Vital Signs Date Time Temp Pulse Resp B/P (MAP) Pulse Ox O2 Delivery O2 Flow Rate FiO2 10/15/19 13:38 96 10/15/19 13:34 74 24 40 10/15/19 12:45 77 27 40 40 10/15/19 12:00 98.2 82 30 164/75 (104) 93 10/15/19 12:00 Mechanical Ventilator Mechanical Ventilator Mechanical Ventilator 10/15/19 12:00 40 10/15/19 12:00 93 175/83 10/15/19 11:42 81 10/15/19 11:15 86 25 40 40 10/15/19 09:03 72 25 40 40 10/15/19 08:08 72 142/68 10/15/19 08:08 142/68 10/15/19 08:00 97.9 72 24 142/68 (92) 91 10/15/19 08:00 40 10/15/19 08:00 Mechanical Ventilator Mechanical Ventilator Mechanical Ventilator 10/15/19 07:45 76 10/15/19 07:33 76 22 40 10/15/19 06:12 140/68 10/15/19 06:10 72 140/68 10/15/19 05:18 73 22 40 10/15/19 04:00 Mechanical Ventilator Mechanical Ventilator Mechanical Ventilator 10/15/19 04:00 98.0 73 25 146/76 (99) 97 10/15/19 03:45 69 10/15/19 03:33 40 10/15/19 03:24 70 21 40 10/15/19 01:30 69 20 40 10/15/19 00:00 98.1 68 23 137/62 (87) 93 10/15/19 00:00 Mechanical Ventilator Mechanical Ventilator Mechanical Ventilator 10/15/19 00:00 60 139/60 10/15/19 00:00 40 10/14/19 23:31 66 10/14/19 23:08 64 22 40 10/14/19 22:58 128/62 10/14/19 21:28 62 21 40 10/14/19 20:58 66 131/64 10/14/19 20:00 Mechanical Ventilator Mechanical Ventilator Mechanical Ventilator 10/14/19 20:00 68 10/14/19 20:00 97.7 64 20 124/55 (78) 93 10/14/19 19:30 65 20 40 10/14/19 17:41 40 10/14/19 17:23 133/64 10/14/19 17:23 79 133/64 10/14/19 16:54 79 21 45 10/14/19 16:00 Mechanical Ventilator Mechanical Ventilator Mechanical Ventilator 10/14/19 16:00 99.0 83 25 133/64 (87) 93 10/14/19 16:00 79 10/14/19 16:00 45 10/14/19 15:20 98.4 65 24 134/65 (88) 95 10/14/19 14:47 100.0 10/14/19 14:44 82 16 45 10/14/19 14:25 135/60 I&O Intake and Output 10/14/19 10/15/19 19:00 07:00 Intake Total 600 ml 360 ml Output Total 3100 ml Balance -2500 ml 360 ml Intake Free Water 160 ml Tube Feeding 440 ml 360 ml Output Urine Total 100 ml Hemodialysis UF 3000 ml # Bowel Movements 1 Dressing: saturated Cardiovascular: RSR Respiratory: decreased breath sounds Abdomen: soft, non-tender, present bowel sounds Extremities: no tenderness, no cyanosis Laboratory Tests Test 10/14/19 16:23 10/15/19 03:15 10/15/19 11:47 POC Whole Blood Glucose 104 MG/DL (74-106) 109 MG/DL (74-106) H White Blood Count 16.5 K/UL (4.8-10.8) H Red Blood Count 3.28 M/UL (4.20-5.40) L Hemoglobin 10.1 G/DL (12.0-16.0) L Hematocrit 30.9 % (37.0-47.0) L Mean Corpuscular Volume 94 FL (80-99) Mean Corpuscular Hemoglobin 30.7 PG (27.0-31.0) Mean Corpuscular Hemoglobin Concent 32.6 G/DL (32.0-36.0) Red Cell Distribution Width 14.8 % (11.6-14.8) Platelet Count 398 K/UL (150-450) Mean Platelet Volume 5.2 FL (6.5-10.1) L Neutrophils (%) (Auto) 84.3 % (45.0-75.0) H Lymphocytes (%) (Auto) 8.1 % (20.0-45.0) L Monocytes (%) (Auto) 4.6 % (1.0-10.0) Eosinophils (%) (Auto) 2.7 % (0.0-3.0) Basophils (%) (Auto) 0.4 % (0.0-2.0) Sodium Level 133 MMOL/L (136-145) L Potassium Level 3.5 MMOL/L (3.5-5.1) Chloride Level 97 MMOL/L (98-107) L Carbon Dioxide Level 28 MMOL/L (21-32) Anion Gap 8 mmol/L (5-15) Blood Urea Nitrogen 71 mg/dL (7-18) H Creatinine 2.4 MG/DL (0.55-1.30) H Estimat Glomerular Filtration Rate 21.7 mL/min (>60) Glucose Level 112 MG/DL (74-106) H Calcium Level 8.8 MG/DL (8.5-10.1) Phosphorus Level 5.6 MG/DL (2.5-4.9) H Magnesium Level 2.7 MG/DL (1.8-2.4) H Total Bilirubin 0.3 MG/DL (0.2-1.0) Aspartate Amino Transf (AST/SGOT) 13 U/L (15-37) L Alanine Aminotransferase (ALT/SGPT) 6 U/L (12-78) L Alkaline Phosphatase 163 U/L (46-116) H Total Protein 6.4 G/DL (6.4-8.2) Albumin 1.6 G/DL (3.4-5.0) L Globulin 4.8 g/dL Albumin/Globulin Ratio 0.3 (1.0-2.7) L Plan Problems: (1) Anemia (2) Proteinuria (3) UTI (urinary tract infection) (4) ARF (acute renal failure) (5) ACS (acute coronary syndrome) (6) Respiratory failure, acute and chronic (7) HCAP (healthcare-associated pneumonia) (8) Abrasion of lip, initial encounter (9) COPD with exacerbation (10) Hypokalemia (11) Sepsis Assessment & Plan: Leukocytosis, anemia, abnormal labs. Renal insufficiency potentially dehydrated Abnormal LFTs alk phos elevated Urine noted significant bacteria likely UTI etiology Wound stable still requiring local care IV antibiotics per infectious disease Discussed with food products sales representative Dr. Berkowitz air mattress turn q2h nutritional tf will follow with recs thank you CT noted pending VQ scan - noted poor study low prob PE work respiratory increasing needs sedation weaning vent settings 80% peep 10 now comfortable Hd line in receiving HD plan for left thora 09/26 cont weaning vent as tolerated improving labs improved placement d/c planning (12) Chronic respiratory failure (13) Ascites (14) Bacteremia (15) Hypernatremia (16) Pleural effusion (17) Pacemaker (18) Aortic dissection, thoracic (19) Tracheostomy in place Assessment & Plan: trach stable no bleeding currently likely tongue etiology of mild oozing currently hemostatic without trauma (20) Feeding by G-tube Assessment & Plan: okay to resume tube feeds via g tube patent and functional dressings okay DAILY ESTIMATED NEEDS: Needs based on Pulmonary, wound 49kg 30-35 kcals/kg 1347-5319 total kcals 1.25-2 g protein/kg 61-98 g total protein Fluid per MD NUTRITION DIAGNOSIS: * Swallowing difficulty R/T dysphagia, respiratory status as evidenced by vent dep via T-collar, GT Dep. (CURRENT TF: Nepro @45ml/hr x 24 hrs) ENTERAL NUTRITION RECOMMENDATIONS: Nepro @ 40ml/hr x 24 hrs to provide 960ml, 1728kcal, 78g prot, 698ml free water * Rec LOWER current rate to 40ml/hr for 24 hrs run. * Water flush of 100ml q 6 hrs per orders * HOB over 30 degrees ADDITIONAL RECOMMENDATIONS: * Per SNF: HT=63", RY=[id number] -> rec calibrated bedscale wt * Pt on Nepro [employer], possible h/o electrolyte imbalance -> monitor lytes closely (K low at this time) * SPECIAL EDUCATION SUPERVISOR eval for oral grat if appropriate * F/up w/ WC eval-> add FRANKLIN in 4oz H20 BID via GT (21) JAVIER (acute kidney injury) (22) Elevated alkaline phosphatase level Assessment & Plan: noted on labs trend US ordered will follow with recs thank you (23) Acute encephalopathy (24) GT CLOGGED (25) Sacral decubitus ulcer, stage IV Assessment & Plan: Pt presented on admission with Full thickness stage 4 Sacral Pressure injury which extends into R gluteal cheek. Base of wound is granular with bone exposure at base of sacrococcygeal.(L)10.5cm x (W06.5cm x (D) 2.8cm , undermining 11-3 by 3.6cm @12 o'clock. small amt serosanguineous exudate noted . [place] epithelial along edges bordered by darker skin tone without erythema. Resolving Pressure injury L ischium. Base of wound is 95% pink epithelial ,5% noni at center base of wound. No exudate noted. Both heels are boggy with non-Blanching erythema. Tx.plan: Cleanse Sacral wound with Saline. Loosely pack with Hydrogel impregnated Kerlix. Apply Moisture Barrier Periwound. Cover with Optifoam drsg Daily and prn. Apply Moisture Barrier paste to L Ischium. Cover with Optifoam drsg. Changee very 3 days and prn. Apply Cavilon Skin Barrier to both heels. Cover each heel with Optifoam drsgs. Change every 7 days and prn. Reposition at least every 2hours or as tolerated. Off-load heels with pillow. APM/MAXWELL Mattress overlay. Sacral wound resolving. Wound is smaller in size with less depth and undermining (L)8.5cm x (W)5cm x (D)1.3cm, undermining clockwise 11-3 by 2.1cm @ 12o'clock. Base of wound is pink and moist, small area of bone exposure at base. Small amt. seropurulent exudate noted. No odor noted. Periwound without evidence of further skin breakdown noted. Wound Tx. are effective and continued as ordered. Al wound prevention protocols continued as care-planned. Tx.Plan:Cleanse sacral wound with Saline. Loosely pack with Hydrogel impregnated kerlix. Apply Moisture Barrier Paste periwound. Cover with Optifoam drsg Daily and prn. Apply Cavilon Skin Barrier to both heels and malleoli. Cover eachsite with Optifoam drsgs. Change every 7 days and prn. Reposition at least every 2hours or as tolerated. Off-load heels with pillow. APM/Maxwell Mattress overlay. Lane Saavedra Oct 15, 2019 14:01
--- NOTE | 2019-10-15 14:23 | Diagnostic Imaging Report ---
Indication: Shortness of breath Technique: One view of the chest Comparison: 10/09/2019 Findings: Left pleural effusion and infrahilar consolidation persists, unchanged. There is increased hazy opacity at the right lung base, likely reflecting increasing pleural fluid but also suspect increased interstitial and airspace infiltrates versus edema. Tracheostomy, left jugular temporary dialysis catheter remain. Impression: Increased right pleural fluid and parenchymal disease, since previous exam of 10/09/2019 Stable pleural and parenchymal disease on the left
[2019-10-15 15:02] LABS: APPEARANCE,URINE CLOUDY; BILIRUBIN, URINE NEGATIVE (NEGATIVE); GLUCOSE, URINE (UA) NEGATIVE (NEGATIVE); KETONES,URINE NEGATIVE (NEGATIVE); LEUKOCYTE ESTERASE ,URINE 3+ (NEGATIVE); NITRITE,URINE NEGATIVE (NEGATIVE); PH,URINE 6 (4.5-8.0); PROTEIN,URINE 3+ (NEGATIVE); UROBILINOGEN,URINE NORMAL MG/DL (0.0-1.0)
[2019-10-15 15:06] LABS: COLOR,URINE YELLOW
--- NOTE | 2019-10-15 16:04 | Nephrology Progress Note ---
Assessment/Plan Problem List: (1) JAVIER (acute kidney injury) (2) Renal failure (ARF), acute on chronic (3) Dehydration (4) Electrolyte imbalance (5) Anemia (6) Respiratory failure, acute and chronic (7) COPD with exacerbation Assessment Patient is presented with sepsis and pneumonia and UTI Patient has acute renal failure, possible underlying chronic kidney failure Severe anemia Electrolyte imbalances: Hyponatremia, hypo-kalemia Chronic respiratory failure, COPD exacerbation Plan October 14: Dialyzed yesterday. Labs reviewed. Medication list reviewed. Continue per consultants. October 13: Patient seen on dialysis. Tolerating well. Will check labs tomorrow. October 12: Blood pressure stable. Labs reviewed. BUN rising. Remains oliguric. Dialysis tomorrow. October 11: Blood pressure is stable. Labs reviewed. Continue as is. Dialysis as needed October 10: Blood pressure medication adjusted. Will check lab tomorrow. Dialysis as needed. Urine output remains low. October 09: Lab reviewed. Remains oliguric. Will give trial of Zaroxolyn. Continue per consultants. Adjust blood pressure medication. Will add Zaroxolyn and increased dose of Cardizem and add clonidine patch for better BP control October 08: Labs reviewed. Patient oliguric. Blood pressure elevated, BP medication adjusted. Recheck lab tomorrow. Dialysis and ultrafiltration as needed. October 07: Labs reviewed. Patient was dialyzed yesterday. 3000 mL fluid was removed. Patient appears to need periodic (twice a week minimum) dialysis for ultrafiltration. Continue to monitor renal parameters. Continue per consultants. October 06: Labs reviewed. Discussed with pulmonary. Will attempt dialysis and ultrafiltration. Continue per consultants. October 05: Lab reviewed. Serum creatinine rising. Blood pressure stabilized. Will recheck lab tomorrow. Dialysis as needed. Will increase lisinopril to 10 mg twice a day. October 04: Lab reviewed. Blood pressure medication adjusted since the patient is hypotensive. Serum creatinine rising. Recheck labs tomorrow. Dialysis as needed. Discussed with RN. October 03: Lab reviewed. Zestril added to BP medication. 1 dose of Seroquel ordered for agitation. Continue to monitor renal parameters. Continue per consultants. October 02: Lab reviewed. Potassium supplement IV given. 3% saline 250 cc ordered. Responded well to Zaroxolyn yesterday. Will continue to monitor electrolytes and renal parameters. Will increase minoxidil to 2.5 mg every 6 hours. October 01: Labs reviewed. Potassium supplement given. Last dialysis September 29. Serum creatinine rising gradually. Urine output very low. Patient appears to continue to need dialysis at least twice a week. Blood pressure still running high I will switch the hydralazine to minoxidil. We will give 1 dose of Zaroxolyn 10 mg today. Will check renal parameters tomorrow. September 30: Patient dialyzed yesterday. 3 L removed. Labs reviewed. Potassium supplement given. Continue per consultants. It appears that the patient required dialysis 2-3 times a week. September 29: Lab reviewed. Chest x-ray result noted. Continues to have pulmonary congestion. Urine output low. Will attempt dialysis again today with ultrafiltration. September 28: Lab reviewed. ABG reviewed. Potassium supplement given. No dialysis at this point. Will eval patient status and renal parameters daily. September 27: Lab reviewed. Last dialysis September 25. Continue to monitor renal parameters. Hemodialysis as needed. September 26: Lab reviewed. Dialyzed yesterday. Potassium supplement given. Medication list reviewed. Will observe renal parameters and arrange for dialysis as needed. September 25: Lab reviewed. Currently on hemodialysis. Tolerating well. Stable from renal standpoint of view. Blood pressure medication adjusted by increasing hydralazine. September 24: Lab reviewed. ABG reviewed. Both lab and ABG much improved. Patient was dialyzed yesterday. We will attempt dialysis tomorrow again. Will adjust that blood pressure medication dosages. September 23: Lab reviewed. ABG reviewed. Patient acidotic. IV bicarb 1 dose is given. Patient has dialysis catheter. Will order dialysis for ultrafiltration and correction of acid-base. Discussed with ERASMO Mohr. September 22: Labs reviewed. Potassium high. Kayexalate and Reglan given. Will discuss with the consultants regarding initiation of dialysis. September 21: Patient is being sedated. Labs reviewed. Potassium supplement discontinued. GFR 20. Continue per current treatment plan. Dialysis and ultrafiltration is a consideration. September 20: Patient periodically agitated. Labs reviewed. Creatinine 2.4. Medication reviewed. Continue per consultants. Calculated creatinine clearance 21. May need isolated ultrafiltration on dialysis. Will discuss with PMD. Meanwhile hemoglobin is lower, defer transfusion to PMD. September 19: DC IV fluid. Zaroxolyn via GT tube. Potassium supplement. Attempt to diurese. Chest CT as bilateral pleural effusion. If diuresis unsuccessful, will consider dialysis and ultrafiltration. September 18: Potassium supplement IV given. Hemoglobin stable. Patient remains full code. Continue per consultants. Previously: Potassium supplement IV Slow IV hydration Epogen subcu Adjust blood pressure medication IV fluid, rate adjusted Norman catheter, intake and output Monitor renal parameters Avoid nephrotoxic's Antibiotics Per orders 2D echocardiogram Kidney ultrasound Subjective ROS Limited/Unobtainable: Yes Objective Objective Last 24 Hour Vital Signs Date Time Temp Pulse Resp B/P (MAP) Pulse Ox O2 Delivery O2 Flow Rate FiO2 10/15/19 15:32 66 10/15/19 15:18 65 20 40 10/15/19 14:49 162/79 10/15/19 13:38 96 10/15/19 13:34 74 24 40 10/15/19 12:45 77 27 40 40 10/15/19 12:00 98.2 82 30 164/75 (104) 93 10/15/19 12:00 Mechanical Ventilator Mechanical Ventilator Mechanical Ventilator 10/15/19 12:00 40 10/15/19 12:00 93 175/83 10/15/19 11:42 81 10/15/19 11:15 86 25 40 40 10/15/19 09:03 72 25 40 40 10/15/19 08:08 72 142/68 10/15/19 08:08 142/68 10/15/19 08:00 97.9 72 24 142/68 (92) 91 10/15/19 08:00 40 10/15/19 08:00 Mechanical Ventilator Mechanical Ventilator Mechanical Ventilator 10/15/19 07:45 76 10/15/19 07:33 76 22 40 10/15/19 06:12 140/68 10/15/19 06:10 72 140/68 10/15/19 05:18 73 22 40 10/15/19 04:00 Mechanical Ventilator Mechanical Ventilator Mechanical Ventilator 10/15/19 04:00 98.0 73 25 146/76 (99) 97 10/15/19 03:45 69 10/15/19 03:33 40 10/15/19 03:24 70 21 40 10/15/19 01:30 69 20 40 10/15/19 00:00 98.1 68 23 137/62 (87) 93 10/15/19 00:00 Mechanical Ventilator Mechanical Ventilator Mechanical Ventilator 9/1/20 00:00 60 139/60 10/15/19 00:00 40 10/14/19 23:31 66 10/14/19 23:08 64 22 40 10/14/19 22:58 128/62 10/14/19 21:28 62 21 40 10/14/19 20:58 66 131/64 10/14/19 20:00 Mechanical Ventilator Mechanical Ventilator Mechanical Ventilator 10/14/19 20:00 68 10/14/19 20:00 97.7 64 20 124/55 (78) 93 10/14/19 19:30 65 20 40 10/14/19 17:41 40 10/14/19 17:23 133/64 10/14/19 17:23 79 133/64 10/14/19 16:54 79 21 45 Intake and Output 10/14/19 10/15/19 19:00 07:00 Intake Total 600 ml 360 ml Output Total 3100 ml Balance -2500 ml 360 ml Intake Free Water 160 ml Tube Feeding 440 ml 360 ml Output Urine Total 100 ml Hemodialysis UF 3000 ml # Bowel Movements 1 Laboratory Tests 10/14/19 16:23: POC Whole Blood Glucose 104 10/15/19 03:15: White Blood Count 16.5H, Red Blood Count 3.28L, Hemoglobin 10.1L, Hematocrit 30.9L, Mean Corpuscular Volume 94, Mean Corpuscular Hemoglobin 30.7, Mean Corpuscular Hemoglobin Concent 32.6, Red Cell Distribution Width 14.8, Platelet Count 398, Mean Platelet Volume 5.2L, Neutrophils (%) (Auto) 84.3H, Lymphocytes (%) (Auto) 8.1L, Monocytes (%) (Auto) 4.6, Eosinophils (%) (Auto) 2.7, Basophils (%) (Auto) 0.4, Sodium Level 133L, Potassium Level 3.5, Chloride Level 97L, Carbon Dioxide Level 28, Anion Gap 8, Blood Urea Nitrogen 71H, Creatinine 2.4H, Estimat Glomerular Filtration Rate 21.7, Glucose Level 112H, Calcium Level 8.8, Phosphorus Level 5.6H, Magnesium Level 2.7H, Total Bilirubin 0.3, Aspartate Amino Transf (AST/SGOT) 13L, Alanine Aminotransferase (ALT/SGPT) 6L, Alkaline Phosphatase 163H, Total Protein 6.4, Albumin 1.6L, Globulin 4.8, Albumin/Globulin Ratio 0.3L 10/15/19 11:47: POC Whole Blood Glucose 109H 10/15/19 13:20: Urine Color Yellow, Urine Appearance Cloudy, Urine pH 6, Urine Specific [place] 1.005, Urine Protein 3+H, Urine Glucose (UA) Negative, Urine Ketones Negative, Urine Blood 4+H, Urine Nitrite Negative, Urine Bilirubin Negative, Urine Urobilinogen Normal, Urine Leukocyte Esterase 3+H, Urine RBC 10-15H, Urine WBC TntcH, Urine Squamous Epithelial Cells Occasional, Urine Bacteria ManyH, Urine Yeast ModerateH Height (Feet): 5 Height (Inches): 5.00 Weight (Pounds): 145 General Appearance: no apparent distress EENT: other - On mechanical ventilator Cardiovascular: normal rate Respiratory/Chest: decreased breath sounds Abdomen: soft Objective No change Johnny Houston MD Oct 15, 2019 16:04
[2019-10-15] MEDS: DAPTOmycin 250 MG in NS 55 ML IV SCH (16:58)
--- NOTE | 2019-10-15 18:18 | General Progress Note ---
Assessment/Plan Status: stable, other - Mood has improved he is able to smile there is no continuous tearing overall she looks better today energy looking the last several days continue with the same management Status Narrative Patient was found to have VRE in the urine and in addition she spiked fever to 101.4 yesterday evening so she is now afebrile multiple is a initial plan was to discharge the patient today but because of the very end spiking a fever patient will need to be treated with this antibiotic for the next 10 days as well by MD be taken by the infectious disease specialist that include blood urine and stool patient will do some daptomycin D to 50 mg IV piggyback every 48 hours we will wait for the result Subjective Constitutional: Reports: no symptoms, other - Patient appears somnolent HEENT: Reports: no symptoms Cardiovascular: Reports: other - No shortness of breath palpitations or dizziness Respiratory: Reports: no symptoms - No cough wheezing or expectoration Gastrointestinal/Abdominal: Reports: no symptoms Genitourinary: Reports: other - Tolerate feeding without residual Neurologic/Psychiatric: Reports: no symptoms, other - Short attention span Allergies: Coded Allergies: No Known Allergies (Unverified , 10/10/17) Objective Last 24 Hour Vital Signs Date Time Temp Pulse Resp B/P (MAP) Pulse Ox O2 Delivery O2 Flow Rate FiO2 10/15/19 17:32 137/66 10/15/19 17:31 65 137/66 10/15/19 16:51 66 20 40 10/15/19 16:00 40 10/15/19 16:00 98.9 65 25 137/66 (89) 100 10/15/19 16:00 Mechanical Ventilator Mechanical Ventilator Mechanical Ventilator 10/15/19 15:32 66 10/15/19 15:26 98.2 10/15/19 15:18 65 20 40 10/15/19 14:49 162/79 10/15/19 13:38 96 10/15/19 13:34 74 24 40 10/15/19 12:45 77 27 40 40 10/15/19 12:00 98.2 82 30 164/75 (104) 93 10/15/19 12:00 Mechanical Ventilator Mechanical Ventilator Mechanical Ventilator 10/15/19 12:00 40 10/15/19 12:00 93 175/83 10/15/19 11:42 81 10/15/19 11:15 86 25 40 40 10/15/19 09:03 72 25 40 40 10/15/19 08:08 72 142/68 10/15/19 08:08 142/68 10/15/19 08:00 97.9 72 24 142/68 (92) 91 10/15/19 08:00 40 10/15/19 08:00 Mechanical Ventilator Mechanical Ventilator Mechanical Ventilator 10/15/19 07:45 76 10/15/19 07:33 76 22 40 10/15/19 06:12 140/68 10/15/19 06:10 72 140/68 10/15/19 05:18 73 22 40 10/15/19 04:00 Mechanical Ventilator Mechanical Ventilator Mechanical Ventilator 10/15/19 04:00 98.0 73 25 146/76 (99) 97 10/15/19 03:45 69 10/15/19 03:33 40 10/15/19 03:24 70 21 40 10/15/19 01:30 69 20 40 10/15/19 00:00 98.1 68 23 137/62 (87) 93 10/15/19 00:00 Mechanical Ventilator Mechanical Ventilator Mechanical Ventilator 10/15/19 00:00 60 139/60 10/15/19 00:00 40 10/14/19 23:31 66 10/14/19 23:08 64 22 40 10/14/19 22:58 128/62 10/14/19 21:28 62 21 40 10/14/19 20:58 66 131/64 10/14/19 20:00 Mechanical Ventilator Mechanical Ventilator Mechanical Ventilator 10/14/19 20:00 68 10/14/19 20:00 97.7 64 20 124/55 (78) 93 10/14/19 19:30 65 20 40 Intake and Output 10/14/19 10/15/19 19:00 07:00 Intake Total 600 ml 360 ml Output Total 3100 ml Balance -2500 ml 360 ml Intake Free Water 160 ml Tube Feeding 440 ml 360 ml Output Urine Total 100 ml Hemodialysis UF 3000 ml # Bowel Movements 1 Laboratory Tests 10/15/19 03:15: White Blood Count 16.5H, Red Blood Count 3.28L, Hemoglobin 10.1L, Hematocrit 30.9L, Mean Corpuscular Volume 94, Mean Corpuscular Hemoglobin 30.7, Mean Corpuscular Hemoglobin Concent 32.6, Red Cell Distribution Width 14.8, Platelet Count 398, Mean Platelet Volume 5.2L, Neutrophils (%) (Auto) 84.3H, Lymphocytes (%) (Auto) 8.1L, Monocytes (%) (Auto) 4.6, Eosinophils (%) (Auto) 2.7, Basophils (%) (Auto) 0.4, Sodium Level 133L, Potassium Level 3.5, Chloride Level 97L, Carbon Dioxide Level 28, Anion Gap 8, Blood Urea Nitrogen 71H, Creatinine 2.4H, Estimat Glomerular Filtration Rate 21.7, Glucose Level 112H, Calcium Level 8.8, Phosphorus Level 5.6H, Magnesium Level 2.7H, Total Bilirubin 0.3, Aspartate Amino Transf (AST/SGOT) 13L, Alanine Aminotransferase (ALT/SGPT) 6L, Alkaline Phosphatase 163H, Total Protein 6.4, Albumin 1.6L, Globulin 4.8, Albumin/Globulin Ratio 0.3L 10/15/19 11:47: POC Whole Blood Glucose 109H 10/15/19 13:20: Urine Color Yellow, Urine Appearance Cloudy, Urine pH 6, Urine Specific [place] 1.005, Urine Protein 3+H, Urine Glucose (UA) Negative, Urine Ketones Negative, Urine Blood 4+H, Urine Nitrite Negative, Urine Bilirubin Negative, Urine Urobilinogen Normal, Urine Leukocyte Esterase 3+H, Urine RBC 10-15H, Urine WBC TntcH, Urine Squamous Epithelial Cells Occasional, Urine Bacteria ManyH, Urine Yeast ModerateH 10/15/19 17:29: POC Whole Blood Glucose 99 Height (Feet): 5 Height (Inches): 5.00 Weight (Pounds): 145 General Appearance: alert, lethargic EENT: PERRL/EOMI, normal ENT inspection Neck: supple Cardiovascular: normal rate, regular rhythm, no gallop/murmur Respiratory/Chest: lungs clear, normal breath sounds Abdomen: normal bowel sounds, non tender, soft, no mass Extremities: non-tender Neurologic: alert, responsive Skin: warm/dry Lucas Dong MD Oct 15, 2019 18:18
[2019-10-15] MEDS: Miralax 17gm pkt ORAL SCH (20:28)
[2019-10-15] MEDS: Dyna-Hex 2% Top Sol 2oz TOPIC SCH (20:28)
--- NOTE | 2019-10-15 22:41 | Psych Consult Progress Note ---
Psychiatry Progress Note Psychiatry Progress Note Subjective the pt was calm dec agitation manageable with morphine and haldol off restraints Medications Current Medications Medications (Trade) Dose Ordered Sig/Penny Route PRN Reason Start Time Stop Time Status Last Admin Dose Admin Acetaminophen (Tylenol) 325 mg Q6H PRN GT Temp >100.5 10/11/19 04:45 10/23/19 10:44 10/14/19 11:41 Ascorbic Acid (Vitamin C) 500 mg DAILY ORAL 10/11/19 09:00 11/05/19 08:59 10/15/19 08:08 Chlorhexidine Gluconate (Ling-Hex 2%) 1 applic DAILY@2000 TOPIC 10/11/19 20:00 12/22/19 19:59 10/15/19 20:28 Clonidine HCl (Catapres TTS-3) 1 patch QWEEK TDERMAL 10/14/19 12:00 01/12/20 11:59 10/14/19 11:51 Daptomycin 250 mg/ Sodium Chloride 55 ml @ 100 mls/hr Q48H IV 10/11/19 16:00 10/16/19 15:59 10/15/19 16:58 Dextrose (Dextrose 50%) 25 ml Q30M PRN IV Hypoglycemia 10/11/19 04:30 01/03/20 18:29 Dextrose (Dextrose 50%) 50 ml Q30M PRN IV Hypoglycemia 10/11/19 04:30 01/03/20 18:29 Diltiazem HCl (Cardizem Tab) 90 mg Q6HR GT 10/11/19 06:00 11/09/19 11:59 10/15/19 17:31 Docusate Sodium (Colace) 100 mg Q8HR GT 10/14/19 14:01 11/13/19 14:00 10/15/19 21:17 Epoetin Gelacio (Epoetin Gelacio(ESRD on dialysis)) 10,000 unit MON-MON-MON SUBQ 10/14/19 21:00 01/12/20 20:59 10/14/19 20:56 Haloperidol Lactate (Haldol) 5 mg Q6H PRN IM Agitation 10/11/19 05:00 11/22/19 10:59 10/11/19 12:34 Heparin Sodium (Porcine) (Heparin 5000 units/ml) 5,000 units EVERY 12 HOURS SUBQ 10/11/19 09:00 10/30/19 08:59 10/15/19 20:30 Insulin Aspart (NovoLOG) Q6HR SUBQ 10/11/19 06:00 01/03/20 20:59 Lansoprazole (Prevacid) 30 mg Q12HR GT 10/11/19 09:00 10/27/19 20:59 10/15/19 20:28 Lisinopril (PriniviL) 20 mg BID GT 10/11/19 09:00 11/08/19 17:59 10/15/19 17:32 Metoclopramide HCl (Reglan) 5 mg EVERY 6 HOURS GT 10/11/19 06:00 11/08/19 11:59 10/15/19 17:31 Metoprolol Tartrate (Lopressor) 25 mg Q12HR GT 10/11/19 09:00 01/07/20 20:59 10/15/19 20:29 Minoxidil (Loniten) 2.5 mg Q8HR ORAL 10/11/19 06:00 01/08/20 13:59 10/15/19 14:49 Morphine Sulfate (Morphine Sulfate) 2 mg Q4H PRN IVP For Pain 10/11/19 04:42 10/16/19 04:41 10/15/19 14:56 Polyethylene Glycol (Miralax) 17 gm BEDTIME ORAL 10/11/19 21:00 10/31/19 20:59 10/15/19 20:28 Risperidone (RisperDAL) 2 mg BEDTIME ORAL 10/11/19 21:00 11/19/19 20:59 10/15/19 20:28 Sorbitol (sorbitoL) 30 ml EVERY 6 HOURS PRN GT Constipation 10/11/19 06:00 10/29/19 17:59 Vitamin B Complex/ Vit C/Folic Acid (Nephrovite) 1 tab DAILY ORAL 10/11/19 09:00 11/05/19 08:59 10/15/19 08:08 Zinc Sulfate (Zinc Sulfate) 220 mg DAILY ORAL 10/11/19 09:00 10/21/19 08:59 10/15/19 08:13 Neurological/Psychiatric: Reports: no symptoms, other - Short attention span Allergies: Coded Allergies: No Known Allergies (Unverified , 10/10/17) Objective Data Height (Feet): 5 Height (Inches): 5.00 Weight (Pounds): 145 General Appearance: alert, lethargic Additional Comments: awake, disoriented. Mood is agitated. Affect is flat. Thought process is concrete. Thought content, no suicidal or homicidal ideation. Cognition is impaired. Insight and judgment are impaired. Assessment/Plan Kiln I: ASSESSMENT: AXIS I: Acute encephalopathy. Schizophrenia. AXIS II: Deferred. AXIS III: As above. AXIS IV: Low. AXIS V: 20. PLAN: 1. We will start the patient on risperidone 2 mg at bedtime. 2. Haldol IM. The patient improved after 1 dose and restraints was stopped at nighttime. 3. Continue to follow and readjust the medications. Status: stable, other - Mood has improved he is able to smile there is no continuous tearing overall she looks better today energy looking the last several days continue with the same management Status Narrative ASSESSMENT: AXIS I: Acute encephalopathy. Schizophrenia. AXIS II: Deferred. AXIS III: As above. AXIS IV: Low. AXIS V: 20. PLAN: 1. We will start the patient on risperidone 2 mg at bedtime. 2. Haldol IM. The patient improved after 1 dose and restraints was stopped at nighttime. 3. Continue to follow and readjust the medications. Assessment/Plan: ASSESSMENT: AXIS I: Acute encephalopathy. Schizophrenia. AXIS II: Deferred. AXIS III: As above. AXIS IV: Low. AXIS V: 20. PLAN: 1. We will start the patient on risperidone 2 mg at bedtime. 2. Haldol IM. The patient improved after 1 dose and restraints was stopped at nighttime. 3. Continue to follow and readjust the medications. Shanda Linares MD Oct 15, 2019 22:40
[2019-10-16 04:00] VITALS: BP 131/68
[2019-10-16] MEDS: NovoLOG Insulin Flexpen SUBQ SCH ×4 (05:07→23:03)
[2019-10-16] MEDS: dilTIAZem HCl 90mg tab GT SCH ×3 (05:08→21:03)
[2019-10-16] MEDS: Minoxidil 2.5mg tab ORAL SCH ×4 (05:08→21:09)
[2019-10-16] MEDS: Metoclopramide 10mg/10ml Liq GT SCH ×4 (05:14→23:04)
[2019-10-16] MEDS: Docusate 100mg/10ml Liq GT SCH ×3 (05:14→21:09)
[2019-10-16 05:26] LABS: BASOPHILS % (AUTO) 0.7 % (0.0-2.0); EOSINOPHILS % (AUTO) 4.3 % (0.0-3.0); HEMATOCRIT 32.4 % (37.0-47.0); HEMOGLOBIN 10.4 G/DL (12.0-16.0); LYMPHOCYTES % (AUTO) 17.9 % (20.0-45.0); MEAN CORPUSCULAR VOLUME 94 FL (80-99); MONOCYTES % (AUTO) 6.4 % (1.0-10.0); NEUTROPHILS % (AUTO) 70.7 % (45.0-75.0); PLATELET COUNT 371 K/UL (150-450); RED BLOOD COUNT 3.46 M/UL (4.20-5.40); RED CELL DISTRIBUTION WIDTH 14.9 % (11.6-14.8); WHITE BLOOD COUNT 8.3 K/UL (4.8-10.8)
[2019-10-16 05:53] LABS: ALANINE AMINOTRANSFERASE 12 U/L (12-78); ALBUMIN 1.6 G/DL (3.4-5.0); ALBUMIN/GLOBULIN RATIO 0.3 (1.0-2.7); ALKALINE PHOSPHATASE 150 U/L (46-116); ANION GAP 9 mmol/L (5-15); ASPARTATE AMINO TRANSFERASE 21 U/L (15-37); BILIRUBIN,TOTAL 0.4 MG/DL (0.2-1.0); BLOOD UREA NITROGEN 76 mg/dL (7-18); CALCIUM 8.8 MG/DL (8.5-10.1); CARBON DIOXIDE 27 MMOL/L (21-32); CHLORIDE 100 MMOL/L (98-107); CREATININE 2.7 MG/DL (0.55-1.30); POTASSIUM 3.7 MMOL/L (3.5-5.1); SODIUM 136 MMOL/L (136-145)
[2019-10-16 06:13] LABS: PHOSPHORUS 3.7 MG/DL (2.5-4.9)
[2019-10-16] MEDS: Acetaminophen 650mg/20.3ml GT PRN (06:19)
--- NOTE | 2019-10-16 06:55 | Hematology/Onc Progress Note ---
Assessment/Plan Assessment/Plan Assessment and Recs # Leukocytosis, now with gram positive bacteremias well as pna noted --> historically --> PPM site (pocket) infection (redness and pain, bacteremia) and likely pocket abscess - no vegetation seen on ABBIE --> is s'p pm removal and also pocket infection is better --> per cards recs in re to tach/davis --> wbc 15-->19-->17-->15-->13->12-->13-->12>13-->18-->9-->7-->16 --> ABX cefepime/levaquin--> vanc/angelo-> daptomycin --> ID recs are noted # Anemia of chronic disease due to underlying chronic medical issues, multifactorial --> Anemia workup has been reviewed, cw acd --> No evidence of hemolysis is noted, peripheral smear has been reviewed. --> Hgb goal >7. Transfuse prn. --> Epogen started --> Medications have been reviewed --> low threshold for gi evaluation in case has occult + --> hgb 7.1-->7.8-->8.9->9.2-->8.5-->9.7-->10-->8.8-->9.6-->8.7->8.6-->7.2->8.7- >9.1-->9.2-->9-->8.7-->9.3-->9.8-->10 --> 1 unit prbc 09/27 # Thrombocytois is likely reactive process, is s/p infection --> plt trend 610k-->706k-->354 --> p smear reviewed # Acute hypoxic respiratory failure s/p intubation 11/23- ?ARDS --> on vent/trach # Gram positive bacteremia- real bacteremia- 2ry to above and probable PNA --> per id care # JAVIER initially >2 --> on ivfs # Elevated d-dimer --> venous duplex and v/q scan # Dysphagia s/p peg # Thoracic aortic dissection s/p repair early 2017 # Psychiatric history on ativan/haldol # [place] resident # Dvt ppx --> heparin sq The timing of this note does not necessarily reflect the time of the patient was seen. Greatly appreciate consultation. Subjective Constitutional: Denies: no symptoms, chills, fever, malaise, weakness, other HEENT: Denies: no symptoms, eye pain, blurred vision, tearing, double vision, ear pain, ear discharge, nose pain, nose congestion, throat pain, throat swelling, mouth pain, mouth swelling, other Cardiovascular: Denies: no symptoms, chest pain, edema, irregular heart rate, lightheadedness, palpitations, syncope, other Respiratory: Denies: no symptoms, cough, shortness of breath, SOB with excertion, SOB at rest, sputum, wheezing, other Gastrointestinal/Abdominal: Denies: no symptoms, abdomen distended, abdominal pain, black stools, tarry stools, blood in stool, constipated, diarrhea, difficulty swallowing, nausea, poor appetite, poor fluid intake, rectal bleeding , vomiting, other Genitourinary: Denies: no symptoms, burning, discharge, frequency, flank pain, hematuria, incontinence, pain, urgency, other Neurologic/Psychiatric: Denies: no symptoms, anxiety, depressed, emotional problems, headache, numbness, paresthesia, pre-existing deficit, seizure, tingling, tremors, weakness, other Endocrine: Denies: no symptoms, excessive sweating, flushing, intolerance to cold, intolerance to heat, increased hunger, increased thirst, increased urine, unexplained weight gain, unexplained weight loss, other Allergies: Coded Allergies: No Known Allergies (Unverified , 10/10/17) Subjective 09/16 on vent now, consulted in am pulm, on vent setting, labs noted, hep sq 09/17 meds noted, cbc noted, labs noted, no bleeding 09/18 is to undergo potential v/q scan given abg, labs noted, resless, on ativan, to get haldol today, roman ramesh 09/19 remains agitated, covering, with sacral wound seeping, likely cause of anemia, roman ramesh 09/26 restless, remains agitated, gtube ripped, eval with rn, and ifeoma consulted 09/27 remains on vent, agitated, seen by gi, hgb low, roman George to transfuse 1 unit prbc 09/28 meds noted, no bleeding, on vent, s/p blood tranfusion, cbc pending, roman rn 09/29 remains in the icu, roman rn in the am, agitated, on versed, fentanyl, restraints 09/30 in icu, trach to vent, on gtube feeds, fentanyl, agitated 10/01 in icu, roman Ayoub rn, no bleeding, sleeping, labs noted, hgb >9 10/02 sedated in icu, is on vent, roman rn, more alert and more conversive with face grimaces 10/03 labs have been reviewed, no bleeding, icu, meds reviewed, on fentanyl and versed, to consult psych 10/05 remains on fentanyl, also with restraints, no bleeding, cbc ordered 10/06 remains obtunded, though reactive when proded, labs pending from am 10/07 hypertensive, asleep, no bleeding, roman rn, no major night sweats\ 10/08 formula leaking from gtube site, no bleeding, with some minor residual 10/09 remains on gtube feeds, on lactulose, no major changes, confused but nods 10/10 labs reviewed, lactulose discontinued as having diarrhea, no bleeding 10/12 meds reviewed, no bleeding, heparin given, roman Starr rn in am, comfortable 10/13 labs are noted, no bleeding, cbc is ordered for today, somewhat agitated 10/14 has been complaining of pain and frowning, no bleeding, hgb reviewed 10/15 hgb 10.4, no bleeding, stool is hard, difficult to collect for c.diff Objective Objective Current Medications Medications (Trade) Dose Ordered Sig/Penny Route PRN Reason Start Time Stop Time Status Last Admin Dose Admin Acetaminophen (Tylenol) 325 mg Q6H PRN GT Temp >100.5 10/11/19 04:45 10/23/19 10:44 10/16/19 06:19 Ascorbic Acid (Vitamin C) 500 mg DAILY ORAL 10/11/19 09:00 11/05/19 08:59 10/15/19 08:08 Chlorhexidine Gluconate (Ling-Hex 2%) 1 applic DAILY@1999 TOPIC 10/11/19 20:00 12/22/19 19:59 10/15/19 20:28 Clonidine HCl (Catapres TTS-3) 1 patch QWEEK TDERMAL 10/14/19 12:00 01/12/20 11:59 10/14/19 11:51 Daptomycin 250 mg/ Sodium Chloride 55 ml @ 100 mls/hr Q48H IV 10/11/19 16:00 10/16/19 15:59 10/15/19 16:58 Dextrose (Dextrose 50%) 25 ml Q30M PRN IV Hypoglycemia 10/11/19 04:30 01/03/20 18:29 Dextrose (Dextrose 50%) 50 ml Q30M PRN IV Hypoglycemia 10/11/19 04:30 01/03/20 18:29 Diltiazem HCl (Cardizem Tab) 90 mg Q6HR GT 10/11/19 06:00 11/09/19 11:59 10/15/19 23:21 Docusate Sodium (Colace) 100 mg Q8HR GT 10/14/19 14:01 11/13/19 14:00 10/16/19 05:14 Epoetin Gelacio (Epoetin Gelacio(ESRD on dialysis)) 10,000 unit SUBQ 10/14/19 21:00 01/12/20 20:59 10/14/19 20:56 Haloperidol Lactate (Haldol) 5 mg Q6H PRN IM Agitation 10/11/19 05:00 11/22/19 10:59 10/11/19 12:34 Heparin Sodium (Porcine) (Heparin 5000 units/ml) 5,000 units EVERY 12 HOURS SUBQ 10/11/19 09:00 10/30/19 08:59 10/15/19 20:30 Insulin Aspart (NovoLOG) Q6HR SUBQ 10/11/19 06:00 01/03/20 20:59 Lansoprazole (Prevacid) 30 mg Q12HR GT 10/11/19 09:00 10/27/19 20:59 10/15/19 20:28 Lisinopril (PriniviL) 20 mg BID GT 10/11/19 09:00 11/08/19 17:59 10/15/19 17:32 Metoclopramide HCl (Reglan) 5 mg EVERY 6 HOURS GT 10/11/19 06:00 11/08/19 11:59 10/16/19 05:14 Metoprolol Tartrate (Lopressor) 25 mg Q12HR GT 10/11/19 09:00 01/07/20 20:59 10/15/19 20:29 Minoxidil (Loniten) 2.5 mg Q8HR ORAL 10/11/19 06:00 01/08/20 13:59 10/16/19 05:15 Polyethylene Glycol (Miralax) 17 gm BEDTIME ORAL 10/11/19 21:00 10/31/19 20:59 10/15/19 20:28 Risperidone (RisperDAL) 2 mg BEDTIME ORAL 10/11/19 21:00 11/19/19 20:59 10/15/19 20:28 Sorbitol (sorbitoL) 30 ml EVERY 6 HOURS PRN GT Constipation 10/11/19 06:00 10/29/19 17:59 Vitamin B Complex/ Vit C/Folic Acid (Nephrovite) 1 tab DAILY ORAL 10/11/19 09:00 11/05/19 08:59 10/15/19 08:08 Zinc Sulfate (Zinc Sulfate) 220 mg DAILY ORAL 10/11/19 09:00 10/21/19 08:59 10/15/19 08:13 Last 24 Hour Vital Signs Date Time Temp Pulse Resp B/P (MAP) Pulse Ox O2 Delivery O2 Flow Rate FiO2 10/16/19 06:49 98.0 10/16/19 05:15 132/68 10/16/19 05:08 52 132/68 10/16/19 04:36 55 20 40 10/16/19 04:00 98.0 61 20 131/68 (89) 100 10/16/19 04:00 40 10/16/19 04:00 Mechanical Ventilator Mechanical Ventilator Mechanical Ventilator 10/16/19 03:53 58 10/16/19 02:57 60 20 40 10/16/19 01:30 62 22 40 10/16/19 00:00 40 10/16/19 00:00 Mechanical Ventilator Mechanical Ventilator Mechanical Ventilator 10/15/19 23:54 98.2 67 22 133/60 (84) 99 10/15/19 23:30 64 10/15/19 23:30 62 21 40 10/15/19 23:21 66 133/60 10/15/19 21:24 63 20 40 10/15/19 21:16 124/62 10/15/19 20:29 66 115/59 10/15/19 20:00 Mechanical Ventilator Mechanical Ventilator Mechanical Ventilator 10/15/19 20:00 40 10/15/19 20:00 98.1 66 22 115/59 (77) 100 10/15/19 19:38 63 10/15/19 19:30 64 20 40 10/15/19 17:32 137/66 10/15/19 17:31 65 137/66 10/15/19 16:51 66 20 40 10/15/19 16:00 40 10/15/19 16:00 98.9 65 25 137/66 (89) 100 10/15/19 16:00 Mechanical Ventilator Mechanical Ventilator Mechanical Ventilator 10/15/19 15:32 66 10/15/19 15:26 98.2 10/15/19 15:18 65 20 40 10/15/19 14:49 162/79 10/15/19 13:38 96 10/15/19 13:34 74 24 40 10/15/19 12:45 77 27 40 40 10/15/19 12:00 98.2 82 30 164/75 (104) 93 10/15/19 12:00 Mechanical Ventilator Mechanical Ventilator Mechanical Ventilator 10/15/19 12:00 40 10/15/19 12:00 93 175/83 10/15/19 11:42 81 10/15/19 11:15 86 25 40 40 10/15/19 09:03 72 25 40 40 10/15/19 08:08 72 142/68 10/15/19 08:08 142/68 10/15/19 08:00 97.9 72 24 142/68 (92) 91 10/15/19 08:00 40 10/15/19 08:00 Mechanical Ventilator Mechanical Ventilator Mechanical Ventilator 10/15/19 07:45 76 10/15/19 07:33 76 22 40 10/15/19 06:12 140/68 10/15/19 06:10 72 140/68 10/15/19 05:18 73 22 40 10/15/19 04:00 Mechanical Ventilator Mechanical Ventilator Mechanical Ventilator 10/15/19 04:00 98.0 73 25 146/76 (99) 97 10/15/19 03:45 69 10/15/19 03:33 40 10/15/19 03:24 70 21 40 10/15/19 01:30 69 20 40 10/15/19 00:00 98.1 68 23 137/62 (87) 93 10/15/19 00:00 Mechanical Ventilator Mechanical Ventilator Mechanical Ventilator 10/15/19 00:00 60 139/60 10/15/19 00:00 40 10/14/19 23:31 66 10/14/19 23:08 64 22 40 10/14/19 22:58 128/62 10/14/19 21:28 62 21 40 10/14/19 20:58 66 131/64 10/14/19 20:00 Mechanical Ventilator Mechanical Ventilator Mechanical Ventilator 10/14/19 20:00 68 10/14/19 20:00 97.7 64 20 124/55 (78) 93 10/14/19 19:30 65 20 40 10/14/19 17:41 40 10/14/19 17:23 133/64 10/14/19 17:23 79 133/64 10/14/19 16:54 79 21 45 10/14/19 16:00 Mechanical Ventilator Mechanical Ventilator Mechanical Ventilator 10/14/19 16:00 99.0 83 25 133/64 (87) 93 10/14/19 16:00 79 10/14/19 16:00 45 10/14/19 15:20 98.4 65 24 134/65 (88) 95 10/14/19 14:44 82 16 45 10/14/19 14:25 135/60 10/14/19 12:30 78 20 98 45 77 20 45 10/14/19 12:30 101.4 69 132/66 (88) 10/14/19 12:00 45 10/14/19 12:00 Mechanical Ventilator Mechanical Ventilator Mechanical Ventilator 10/14/19 12:00 101.7 72 25 181/69 (106) 93 10/14/19 11:59 102 10/14/19 11:51 181/80 10/14/19 11:40 100 192/87 10/14/19 10:32 76 20 45 10/14/19 09:20 80 22 45 10/14/19 09:00 70 139/63 10/14/19 09:00 139/63 10/14/19 08:00 98.1 70 25 139/63 (88) 94 10/14/19 08:00 Mechanical Ventilator Mechanical Ventilator Mechanical Ventilator 10/14/19 08:00 45 10/14/19 08:00 67 10/14/19 07:24 78 20 98 45 78 20 45 Intake and Output 10/15/19 10/16/19 19:00 07:00 Intake Total 695 ml 640 ml Output Total 150 ml Balance 545 ml 640 ml Intake Free Water 160 ml 200 ml IV Total 55 ml Tube Feeding 480 ml 440 ml Output Urine Total 150 ml # Bowel Movements 2 3 Labs Test 10/13/19 12:19 10/13/19 17:24 10/13/19 23:51 10/14/19 05:19 POC Whole Blood Glucose 97 MG/DL (74-106) 96 MG/DL (74-106) 107 MG/DL (74-106) Test 10/14/19 11:30 10/14/19 16:23 10/15/19 03:15 10/15/19 11:47 POC Whole Blood Glucose 104 MG/DL (74-106) 109 MG/DL (74-106) White Blood Count 16.5 K/UL (4.8-10.8) Red Blood Count 3.28 M/UL (4.20-5.40) Hemoglobin 10.1 G/DL (12.0-16.0) Hematocrit 30.9 % (37.0-47.0) Mean Corpuscular Volume 94 FL (80-99) Mean Corpuscular Hemoglobin 30.7 PG (27.0-31.0) Mean Corpuscular Hemoglobin Concent 32.6 G/DL (32.0-36.0) Red Cell Distribution Width 14.8 % (11.6-14.8) Platelet Count 398 K/UL (150-450) Mean Platelet Volume 5.2 FL (6.5-10.1) Neutrophils (%) (Auto) 84.3 % (45.0-75.0) Lymphocytes (%) (Auto) 8.1 % (20.0-45.0) Monocytes (%) (Auto) 4.6 % (1.0-10.0) Eosinophils (%) (Auto) 2.7 % (0.0-3.0) Basophils (%) (Auto) 0.4 % (0.0-2.0) Sodium Level 133 MMOL/L (136-145) Potassium Level 3.5 MMOL/L (3.5-5.1) Chloride Level 97 MMOL/L (98-107) Carbon Dioxide Level 28 MMOL/L (21-32) Anion Gap 8 mmol/L (5-15) Blood Urea Nitrogen 71 mg/dL (7-18) Creatinine 2.4 MG/DL (0.55-1.30) Estimat Glomerular Filtration Rate 21.7 mL/min (>60) Glucose Level 112 MG/DL (74-106) Calcium Level 8.8 MG/DL (8.5-10.1) Phosphorus Level 5.6 MG/DL (2.5-4.9) Magnesium Level 2.7 MG/DL (1.8-2.4) Total Bilirubin 0.3 MG/DL (0.2-1.0) Aspartate Amino Transf (AST/SGOT) 13 U/L (15-37) Alanine Aminotransferase (ALT/SGPT) 6 U/L (12-78) Alkaline Phosphatase 163 U/L (46-116) Total Protein 6.4 G/DL (6.4-8.2) Albumin 1.6 G/DL (3.4-5.0) Globulin 4.8 g/dL Albumin/Globulin Ratio 0.3 (1.0-2.7) Test 10/15/19 13:20 10/15/19 17:29 10/15/19 23:18 10/16/19 02:40 Urine Color Yellow Urine Appearance Cloudy Urine pH 6 (4.5-8.0) Urine Specific Wells 1.005 (1.005-1.035) Urine Protein 3+ (NEGATIVE) Urine Glucose (UA) Negative (NEGATIVE) Urine Ketones Negative (NEGATIVE) Urine Blood 4+ (NEGATIVE) Urine Nitrite Negative (NEGATIVE) Urine Bilirubin Negative (NEGATIVE) Urine Urobilinogen Normal MG/DL (0.0-1.0) Urine Leukocyte Esterase 3+ (NEGATIVE) Urine RBC 10-15 /HPF (0 - 2) Urine WBC Tntc /HPF (0 - 2) Urine Squamous Epithelial Cells Occasional /LPF Urine Bacteria Many /HPF (NONE) Urine Yeast Moderate /HPF (NONE) POC Whole Blood Glucose 99 MG/DL (74-106) White Blood Count 8.3 K/UL (4.8-10.8) Red Blood Count 3.46 M/UL (4.20-5.40) Hemoglobin 10.4 G/DL (12.0-16.0) Hematocrit 32.4 % (37.0-47.0) Mean Corpuscular Volume 94 FL (80-99) Mean Corpuscular Hemoglobin 30.1 PG (27.0-31.0) Mean Corpuscular Hemoglobin Concent 32.2 G/DL (32.0-36.0) Red Cell Distribution Width 14.9 % (11.6-14.8) Platelet Count 371 K/UL (150-450) Mean Platelet Volume 4.8 FL (6.5-10.1) Neutrophils (%) (Auto) 70.7 % (45.0-75.0) Lymphocytes (%) (Auto) 17.9 % (20.0-45.0) Monocytes (%) (Auto) 6.4 % (1.0-10.0) Eosinophils (%) (Auto) 4.3 % (0.0-3.0) Basophils (%) (Auto) 0.7 % (0.0-2.0) Sodium Level 136 MMOL/L (136-145) Potassium Level 3.7 MMOL/L (3.5-5.1) Chloride Level 100 MMOL/L (98-107) Carbon Dioxide Level 27 MMOL/L (21-32) Anion Gap 9 mmol/L (5-15) Blood Urea Nitrogen 76 mg/dL (7-18) Creatinine 2.7 MG/DL (0.55-1.30) Estimat Glomerular Filtration Rate 18.9 mL/min (>60) Glucose Level 112 MG/DL (74-106) Calcium Level 8.8 MG/DL (8.5-10.1) Phosphorus Level 3.7 MG/DL (2.5-4.9) Magnesium Level 2.8 MG/DL (1.8-2.4) Total Bilirubin 0.4 MG/DL (0.2-1.0) Aspartate Amino Transf (AST/SGOT) 21 U/L (15-37) Alanine Aminotransferase (ALT/SGPT) 12 U/L (12-78) Alkaline Phosphatase 150 U/L (46-116) Total Protein 6.3 G/DL (6.4-8.2) Albumin 1.6 G/DL (3.4-5.0) Globulin 4.7 g/dL Albumin/Globulin Ratio 0.3 (1.0-2.7) Test 10/16/19 05:06 Height (Feet): 5 Height (Inches): 5.00 Weight (Pounds): 144 Objective Physical Exam: Vitals: reviewed General: NAD HEENT: nc, at Neck: supple ++tracn/vent Chest: clear breath sounds bilaterally Cardiovascular: RRR, no s3, s4 Abdomen: soft, nontender, nd +gtube Extremities: no cce, normal range of motion Neuro: alert Evan Muhammad MD Oct 16, 2019 06:55
[2019-10-16 08:00] VITALS: BP 152/71
[2019-10-16] MEDS: Zinc Sulfate 220mg ORAL SCH (08:21)
[2019-10-16] MEDS: Nephrovite tab (Rena-Vite) ORAL SCH (08:22)
[2019-10-16] MEDS: Ascorbic Acid 500mg tab ORAL SCH (08:22)
[2019-10-16] MEDS: Lisinopril 20mg tab GT SCH ×2 (08:22→17:42)
[2019-10-16] MEDS: Heparin 5000 units/ml inj SUBQ SCH ×2 (08:24→20:31)
--- NOTE | 2019-10-16 09:06 | General Progress Note ---
Assessment/Plan Problem List: (1) S/P aortic dissection repair ICD Codes: Z98.890 - Other specified postprocedural states SNOMED: 490174572, 612627290 (2) Sacral decubitus ulcer, stage IV ICD Codes: L89.154 - Pressure ulcer of sacral region, stage 4 SNOMED: 524783863, 331607290 (3) Anemia ICD Codes: D64.9 - Anemia, unspecified SNOMED: 255185374 (4) GT CLOGGED (5) Feeding by G-tube ICD Codes: Z93.1 - Gastrostomy status SNOMED: 192535809, 528318275 (6) Tracheostomy in place ICD Codes: Z93.0 - Tracheostomy status SNOMED: 315514235 (7) Pacemaker ICD Codes: Z95.0 - Presence of cardiac pacemaker SNOMED: 848749805 (8) Chronic respiratory failure ICD Codes: J96.10 - Chronic respiratory failure, unspecified whether with hypoxia or hypercapnia SNOMED: 66809429 Status: stable, other - Mood has improved he is able to smile there is no continuous tearing overall she looks better today energy looking the last several days continue with the same management Assessment/Plan: GTF monitor for residuals repeat labs abx per ID respiratory care dc planning per primary team Subjective ROS Limited/Unobtainable: No Allergies: Coded Allergies: No Known Allergies (Unverified , 10/10/17) Objective Last 24 Hour Vital Signs Date Time Temp Pulse Resp B/P (MAP) Pulse Ox O2 Delivery O2 Flow Rate FiO2 10/16/19 08:22 64 152/71 10/16/19 08:22 152/71 10/16/19 08:00 96.8 62 22 152/71 (98) 98 10/16/19 08:00 Mechanical Ventilator Mechanical Ventilator Mechanical Ventilator 10/16/19 07:12 60 20 40 10/16/19 06:49 98.0 10/16/19 05:15 132/68 10/16/19 05:08 52 132/68 10/16/19 04:36 55 20 40 10/16/19 04:00 98.0 61 20 131/68 (89) 100 10/16/19 04:00 40 10/16/19 04:00 Mechanical Ventilator Mechanical Ventilator Mechanical Ventilator 10/16/19 03:53 58 10/16/19 02:57 60 20 40 10/16/19 01:30 62 22 40 10/16/19 00:00 40 10/16/19 00:00 Mechanical Ventilator Mechanical Ventilator Mechanical Ventilator 10/15/19 23:54 98.2 67 22 133/60 (84) 99 10/15/19 23:30 64 10/15/19 23:30 62 21 40 10/15/19 23:21 66 133/60 10/15/19 21:24 63 20 40 10/15/19 21:16 124/62 10/15/19 20:29 66 115/59 10/15/19 20:00 Mechanical Ventilator Mechanical Ventilator Mechanical Ventilator 10/15/19 20:00 40 10/15/19 20:00 98.1 66 22 115/59 (77) 100 10/15/19 19:38 63 10/15/19 19:30 64 20 40 10/15/19 17:32 137/66 10/15/19 17:31 65 137/66 10/15/19 16:51 66 20 40 10/15/19 16:00 40 10/15/19 16:00 98.9 65 25 137/66 (89) 100 10/15/19 16:00 Mechanical Ventilator Mechanical Ventilator Mechanical Ventilator 10/15/19 15:32 66 10/15/19 15:26 98.2 10/15/19 15:18 65 20 40 10/15/19 14:49 162/79 10/15/19 13:38 96 10/15/19 13:34 74 24 40 10/15/19 12:45 77 27 40 40 10/15/19 12:00 98.2 82 30 164/75 (104) 93 10/15/19 12:00 Mechanical Ventilator Mechanical Ventilator Mechanical Ventilator 10/15/19 12:00 40 10/15/19 12:00 93 175/83 10/15/19 11:42 81 10/15/19 11:15 86 25 40 40 Intake and Output 10/15/19 10/16/19 19:00 07:00 Intake Total 695 ml 680 ml Output Total 150 ml Balance 545 ml 680 ml Intake Free Water 160 ml 200 ml IV Total 55 ml Tube Feeding 480 ml 480 ml Output Urine Total 150 ml # Bowel Movements 2 3 Laboratory Tests 10/15/19 11:47: POC Whole Blood Glucose 109H 10/15/19 13:20: Urine Color Yellow, Urine Appearance Cloudy, Urine pH 6, Urine Specific [place] 1.005, Urine Protein 3+H, Urine Glucose (UA) Negative, Urine Ketones Negative, Urine Blood 4+H, Urine Nitrite Negative, Urine Bilirubin Negative, Urine Urobilinogen Normal, Urine Leukocyte Esterase 3+H, Urine RBC 10-15H, Urine WBC TntcH, Urine Squamous Epithelial Cells Occasional, Urine Bacteria ManyH, Urine Yeast ModerateH 10/15/19 17:29: POC Whole Blood Glucose 99 10/15/19 23:18: POC Whole Blood Glucose [Pending] 10/16/19 02:40: White Blood Count 8.3, Red Blood Count 3.46L, Hemoglobin 10.4L, Hematocrit 32.4L , Mean Corpuscular Volume 94, Mean Corpuscular Hemoglobin 30.1, Mean Corpuscular Hemoglobin Concent 32.2, Red Cell Distribution Width 14.9H, Platelet Count 371, Mean Platelet Volume 4.8L, Neutrophils (%) (Auto) 70.7, Lymphocytes (%) (Auto) 17.9L, Monocytes (%) (Auto) 6.4, Eosinophils (%) (Auto) 4.3H, Basophils (%) (Auto) 0.7, Sodium Level 136, Potassium Level 3.7, Chloride Level 100, Carbon Dioxide Level 27, Anion Gap 9, Blood Urea Nitrogen 76H, Creatinine 2.7H, Estimat Glomerular Filtration Rate 18.9, Glucose Level 112H, Calcium Level 8.8, Phosphorus Level 3.7, Magnesium Level 2.8H, Total Bilirubin 0.4, Aspartate Amino Transf (AST/SGOT) 21, Alanine Aminotransferase (ALT/SGPT) 12, Alkaline Phosphatase 150H, Total Protein 6.3L, Albumin 1.6L, Globulin 4.7, Albumin/Globulin Ratio 0.3L 10/16/19 05:06: POC Whole Blood Glucose [Pending] Height (Feet): 5 Height (Inches): 5.00 Weight (Pounds): 144 General Appearance: no apparent distress EENT: normal ENT inspection Neck: supple Cardiovascular: normal rate Respiratory/Chest: decreased breath sounds Abdomen: normal bowel sounds, non tender, soft Extremities: non-tender Inder Mccauley MD Oct 16, 2019 09:06
[2019-10-16] MEDS ORDERED: NS 275ml ONE (09:56)
--- NOTE | 2019-10-16 09:56 | Nephrology Progress Note ---
Assessment/Plan Problem List: (1) JAVIER (acute kidney injury) (2) Renal failure (ARF), acute on chronic (3) Dehydration (4) Electrolyte imbalance (5) Anemia (6) Respiratory failure, acute and chronic (7) COPD with exacerbation Assessment Patient is presented with sepsis and pneumonia and UTI Patient has acute renal failure, possible underlying chronic kidney failure Severe anemia Electrolyte imbalances: Hyponatremia, hypo-kalemia Chronic respiratory failure, COPD exacerbation Plan October 15: Last dialysis October 13. Labs were reviewed. Urine output very low. Will dialyze and ultrafiltrate tomorrow. Per consultants. October 14: Dialyzed yesterday. Labs reviewed. Medication list reviewed. Continue per consultants. October 13: Patient seen on dialysis. Tolerating well. Will check labs tomorrow. October 12: Blood pressure stable. Labs reviewed. BUN rising. Remains oliguric. Dialysis tomorrow. October 11: Blood pressure is stable. Labs reviewed. Continue as is. Dialysis as needed October 10: Blood pressure medication adjusted. Will check lab tomorrow. Dialysis as needed. Urine output remains low. October 09: Lab reviewed. Remains oliguric. Will give trial of Zaroxolyn. Continue per consultants. Adjust blood pressure medication. Will add Zaroxolyn and increased dose of Cardizem and add clonidine patch for better BP control October 08: Labs reviewed. Patient oliguric. Blood pressure elevated, BP medication adjusted. Recheck lab tomorrow. Dialysis and ultrafiltration as needed. October 07: Labs reviewed. Patient was dialyzed yesterday. 3000 mL fluid was removed. Patient appears to need periodic (twice a week minimum) dialysis for ultrafiltration. Continue to monitor renal parameters. Continue per consultants. October 06: Labs reviewed. Discussed with pulmonary. Will attempt dialysis and ultrafiltration. Continue per consultants. October 05: Lab reviewed. Serum creatinine rising. Blood pressure stabilized. Will recheck lab tomorrow. Dialysis as needed. Will increase lisinopril to 10 mg twice a day. October 04: Lab reviewed. Blood pressure medication adjusted since the patient is hypotensive. Serum creatinine rising. Recheck labs tomorrow. Dialysis as needed. Discussed with RN. October 03: Lab reviewed. Zestril added to BP medication. 1 dose of Seroquel ordered for agitation. Continue to monitor renal parameters. Continue per consultants. October 02: Lab reviewed. Potassium supplement IV given. 3% saline 250 cc ordered. Responded well to Zaroxolyn yesterday. Will continue to monitor electrolytes and renal parameters. Will increase minoxidil to 2.5 mg every 6 hours. October 01: Labs reviewed. Potassium supplement given. Last dialysis September 29. Serum creatinine rising gradually. Urine output very low. Patient appears to continue to need dialysis at least twice a week. Blood pressure still running high I will switch the hydralazine to minoxidil. We will give 1 dose of Zaroxolyn 10 mg today. Will check renal parameters tomorrow. September 30: Patient dialyzed yesterday. 3 L removed. Labs reviewed. Potassium supplement given. Continue per consultants. It appears that the patient required dialysis 2-3 times a week. September 29: Lab reviewed. Chest x-ray result noted. Continues to have pulmonary congestion. Urine output low. Will attempt dialysis again today with ultrafiltration. September 28: Lab reviewed. ABG reviewed. Potassium supplement given. No dialysis at this point. Will eval patient status and renal parameters daily. September 27: Lab reviewed. Last dialysis September 25. Continue to monitor renal parameters. Hemodialysis as needed. September 26: Lab reviewed. Dialyzed yesterday. Potassium supplement given. Medication list reviewed. Will observe renal parameters and arrange for dialysis as needed. September 25: Lab reviewed. Currently on hemodialysis. Tolerating well. Stable from renal standpoint of view. Blood pressure medication adjusted by increasing hydralazine. September 24: Lab reviewed. ABG reviewed. Both lab and ABG much improved. Patient was dialyzed yesterday. We will attempt dialysis tomorrow again. Will adjust that blood pressure medication dosages. September 23: Lab reviewed. ABG reviewed. Patient acidotic. IV bicarb 1 dose is given. Patient has dialysis catheter. Will order dialysis for ultrafiltration and correction of acid-base. Discussed with ERASMO Mohr. September 22: Labs reviewed. Potassium high. Kayexalate and Reglan given. Will discuss with the consultants regarding initiation of dialysis. September 21: Patient is being sedated. Labs reviewed. Potassium supplement discontinued. GFR 20. Continue per current treatment plan. Dialysis and ultrafiltration is a consideration. September 20: Patient periodically agitated. Labs reviewed. Creatinine 2.4. Medication reviewed. Continue per consultants. Calculated creatinine clearance 21. May need isolated ultrafiltration on dialysis. Will discuss with PMD. Meanwhile hemoglobin is lower, defer transfusion to PMD. September 19: DC IV fluid. Zaroxolyn via GT tube. Potassium supplement. Attempt to diurese. Chest CT as bilateral pleural effusion. If diuresis unsuccessful, will consider dialysis and ultrafiltration. September 18: Potassium supplement IV given. Hemoglobin stable. Patient remains full code. Continue per consultants. Previously: Potassium supplement IV Slow IV hydration Epogen subcu Adjust blood pressure medication IV fluid, rate adjusted Noramn catheter, intake and output Monitor renal parameters Avoid nephrotoxic's Antibiotics Per orders 2D echocardiogram Kidney ultrasound Subjective ROS Limited/Unobtainable: Yes Objective Objective Last 24 Hour Vital Signs Date Time Temp Pulse Resp B/P (MAP) Pulse Ox O2 Delivery O2 Flow Rate FiO2 10/16/19 08:22 64 152/71 10/16/19 08:22 152/71 10/16/19 08:00 62 10/16/19 08:00 96.8 62 22 152/71 (98) 98 10/16/19 08:00 40 10/16/19 08:00 Mechanical Ventilator Mechanical Ventilator Mechanical Ventilator 10/16/19 07:12 60 20 40 10/16/19 06:49 98.0 10/16/19 05:15 132/68 10/16/19 05:08 52 132/68 10/16/19 04:36 55 20 40 10/16/19 04:00 98.0 61 20 131/68 (89) 100 10/16/19 04:00 40 10/16/19 04:00 Mechanical Ventilator Mechanical Ventilator Mechanical Ventilator 10/16/19 03:53 58 10/16/19 02:57 60 20 40 10/16/19 01:30 62 22 40 10/16/19 00:00 40 10/16/19 00:00 Mechanical Ventilator Mechanical Ventilator Mechanical Ventilator 10/15/19 23:54 98.2 67 22 133/60 (84) 99 10/15/19 23:30 64 10/15/19 23:30 62 21 40 10/15/19 23:21 66 133/60 10/15/19 21:24 63 20 40 10/15/19 21:16 124/62 10/15/19 20:29 66 115/59 10/15/19 20:00 Mechanical Ventilator Mechanical Ventilator Mechanical Ventilator 10/15/19 20:00 40 10/15/19 20:00 98.1 66 22 115/59 (77) 100 10/15/19 19:38 63 10/15/19 19:30 64 20 40 10/15/19 17:32 137/66 10/15/19 17:31 65 137/66 10/15/19 16:51 66 20 40 10/15/19 16:00 40 10/15/19 16:00 98.9 65 25 137/66 (89) 100 10/15/19 16:00 Mechanical Ventilator Mechanical Ventilator Mechanical Ventilator 10/15/19 15:32 66 10/15/19 15:26 98.2 10/15/19 15:18 65 20 40 10/15/19 14:49 162/79 10/15/19 13:38 96 10/15/19 13:34 74 24 40 10/15/19 12:45 77 27 40 40 10/15/19 12:00 98.2 82 30 164/75 (104) 93 10/15/19 12:00 Mechanical Ventilator Mechanical Ventilator Mechanical Ventilator 10/15/19 12:00 40 10/15/19 12:00 93 175/83 10/15/19 11:42 81 10/15/19 11:15 86 25 40 40 Intake and Output 10/15/19 10/16/19 19:00 07:00 Intake Total 695 ml 680 ml Output Total 150 ml Balance 545 ml 680 ml Intake Free Water 160 ml 200 ml IV Total 55 ml Tube Feeding 480 ml 480 ml Output Urine Total 150 ml # Bowel Movements 2 3 Laboratory Tests 10/15/19 11:47: POC Whole Blood Glucose 109H 10/15/19 13:20: Urine Color Yellow, Urine Appearance Cloudy, Urine pH 6, Urine Specific [place] 1.005, Urine Protein 3+H, Urine Glucose (UA) Negative, Urine Ketones Negative, Urine Blood 4+H, Urine Nitrite Negative, Urine Bilirubin Negative, Urine Urobilinogen Normal, Urine Leukocyte Esterase 3+H, Urine RBC 10-15H, Urine WBC TntcH, Urine Squamous Epithelial Cells Occasional, Urine Bacteria ManyH, Urine Yeast ModerateH 10/15/19 17:29: POC Whole Blood Glucose 99 10/15/19 23:18: POC Whole Blood Glucose [Pending] 10/16/19 02:40: White Blood Count 8.3, Red Blood Count 3.46L, Hemoglobin 10.4L, Hematocrit 32.4L , Mean Corpuscular Volume 94, Mean Corpuscular Hemoglobin 30.1, Mean Corpuscular Hemoglobin Concent 32.2, Red Cell Distribution Width 14.9H, Platelet Count 371, Mean Platelet Volume 4.8L, Neutrophils (%) (Auto) 70.7, Lymphocytes (%) (Auto) 17.9L, Monocytes (%) (Auto) 6.4, Eosinophils (%) (Auto) 4.3H, Basophils (%) (Auto) 0.7, Sodium Level 136, Potassium Level 3.7, Chloride Level 100, Carbon Dioxide Level 27, Anion Gap 9, Blood Urea Nitrogen 76H, Creatinine 2.7H, Estimat Glomerular Filtration Rate 18.9, Glucose Level 112H, Calcium Level 8.8, Phosphorus Level 3.7, Magnesium Level 2.8H, Total Bilirubin 0.4, Aspartate Amino Transf (AST/SGOT) 21, Alanine Aminotransferase (ALT/SGPT) 12, Alkaline Phosphatase 150H, Total Protein 6.3L, Albumin 1.6L, Globulin 4.7, Albumin/Globulin Ratio 0.3L 10/16/19 05:06: POC Whole Blood Glucose [Pending] Height (Feet): 5 Height (Inches): 5.00 Weight (Pounds): 144 General Appearance: no apparent distress EENT: other - On mechanical ventilation Cardiovascular: normal rate Respiratory/Chest: decreased breath sounds Abdomen: distended Objective No change Johnny Houston MD Oct 16, 2019 09:56
--- NOTE | 2019-10-16 10:14 | Pulmonology Progress Note ---
Yara Castro COMPUTER ART INSTRUCTOR 10/16/19 1014: Subjective ROS Limited/Unobtainable: Yes Allergies: Coded Allergies: No Known Allergies (Unverified , 10/10/17) Subjective in PAULIE on vent AC with FiO2 40% no signs of resp distress on current settings afebrile, last fevers 10/13 leukocytosis with WBC 16.5 on 10/14 - resolved CXR 10/14 -> increased right pleural fluid and parenchymal disease, tolerated CPAP trials x 4 hrs 10/14, then desaturated and palced back to AC vent Objective Last 24 Hour Vital Signs Date Time Temp Pulse Resp B/P (MAP) Pulse Ox O2 Delivery O2 Flow Rate FiO2 10/16/19 08:22 64 152/71 10/16/19 08:22 152/71 10/16/19 08:00 62 10/16/19 08:00 96.8 62 22 152/71 (98) 98 10/16/19 08:00 40 10/16/19 08:00 Mechanical Ventilator Mechanical Ventilator Mechanical Ventilator 10/16/19 07:12 60 20 40 10/16/19 06:49 98.0 10/16/19 05:15 132/68 10/16/19 05:08 52 132/68 10/16/19 04:36 55 20 40 10/16/19 04:00 98.0 61 20 131/68 (89) 100 10/16/19 04:00 40 10/16/19 04:00 Mechanical Ventilator Mechanical Ventilator Mechanical Ventilator 10/16/19 03:53 58 10/16/19 02:57 60 20 40 10/16/19 01:30 62 22 40 10/16/19 00:00 40 10/16/19 00:00 Mechanical Ventilator Mechanical Ventilator Mechanical Ventilator 10/15/19 23:54 98.2 67 22 133/60 (84) 99 10/15/19 23:30 64 10/15/19 23:30 62 21 40 10/15/19 23:21 66 133/60 10/15/19 21:24 63 20 40 10/15/19 21:16 124/62 10/15/19 20:29 66 115/59 10/15/19 20:00 Mechanical Ventilator Mechanical Ventilator Mechanical Ventilator 10/15/19 20:00 40 10/15/19 20:00 98.1 66 22 115/59 (77) 100 10/15/19 19:38 63 10/15/19 19:30 64 20 40 10/15/19 17:32 137/66 10/15/19 17:31 65 137/66 10/15/19 16:51 66 20 40 10/15/19 16:00 40 10/15/19 16:00 98.9 65 25 137/66 (89) 100 10/15/19 16:00 Mechanical Ventilator Mechanical Ventilator Mechanical Ventilator 10/15/19 15:32 66 10/15/19 15:26 98.2 10/15/19 15:18 65 20 40 10/15/19 14:49 162/79 10/15/19 13:38 96 10/15/19 13:34 74 24 40 10/15/19 12:45 77 27 40 40 10/15/19 12:00 98.2 82 30 164/75 (104) 93 10/15/19 12:00 Mechanical Ventilator Mechanical Ventilator Mechanical Ventilator 10/15/19 12:00 40 10/15/19 12:00 93 175/83 10/15/19 11:42 81 10/15/19 11:15 86 25 40 40 Intake and Output 10/15/19 10/16/19 19:00 07:00 Intake Total 695 ml 680 ml Output Total 150 ml Balance 545 ml 680 ml Intake Free Water 160 ml 200 ml IV Total 55 ml Tube Feeding 480 ml 480 ml Output Urine Total 150 ml # Bowel Movements 2 3 Objective General Appearance: no apparent distress, bedridden middle age chronically ill looking female on vent AC 500-20- 40%, PEEP 5, awake, calm Lines, tubes and drains: left jugular HD catheter HEENT: normocephalic, atraumatic, anicteric, trach - Shiley #7 cuffed XLT, secretions small amount, yellow color , thick consistency Respiratory/Chest: no accessory muscle use, few isolated rhonchi Cardiovascular/Chest: normal rate, regular rhythm - SR on tele Abdomen: normal bowel sounds, non tender, soft, G tube Genitourinary/Rectal: [place] Extremities: no edema Skin Exam: warm/dry, multiple tattoos all over the body Neurologic: awake, no gross focal Musculoskeletal: atrophy - BLE Microbiology Date/Time Source Procedure Growth Status 10/15/19 13:20 Urine,Clean Catch Urine Culture - Preliminary Resulted Laboratory Tests 10/15/19 11:47: POC Whole Blood Glucose 109H 10/15/19 13:20: Urine Color Yellow, Urine Appearance Cloudy, Urine pH 6, Urine Specific [place] 1.005, Urine Protein 3+H, Urine Glucose (UA) Negative, Urine Ketones Negative, Urine Blood 4+H, Urine Nitrite Negative, Urine Bilirubin Negative, Urine Urobilinogen Normal, Urine Leukocyte Esterase 3+H, Urine RBC 10-15H, Urine WBC TntcH, Urine Squamous Epithelial Cells Occasional, Urine Bacteria ManyH, Urine Yeast ModerateH 10/15/19 17:29: POC Whole Blood Glucose 99 10/15/19 23:18: POC Whole Blood Glucose [Pending] 10/16/19 02:40: White Blood Count 8.3, Red Blood Count 3.46L, Hemoglobin 10.4L, Hematocrit 32.4L , Mean Corpuscular Volume 94, Mean Corpuscular Hemoglobin 30.1, Mean Corpuscular Hemoglobin Concent 32.2, Red Cell Distribution Width 14.9H, Platelet Count 371, Mean Platelet Volume 4.8L, Neutrophils (%) (Auto) 70.7, Lymphocytes (%) (Auto) 17.9L, Monocytes (%) (Auto) 6.4, Eosinophils (%) (Auto) 4.3H, Basophils (%) (Auto) 0.7, Sodium Level 136, Potassium Level 3.7, Chloride Level 100, Carbon Dioxide Level 27, Anion Gap 9, Blood Urea Nitrogen 76H, Creatinine 2.7H, Estimat Glomerular Filtration Rate 18.9, Glucose Level 112H, Calcium Level 8.8, Phosphorus Level 3.7, Magnesium Level 2.8H, Total Bilirubin 0.4, Aspartate Amino Transf (AST/SGOT) 21, Alanine Aminotransferase (ALT/SGPT) 12, Alkaline Phosphatase 150H, Total Protein 6.3L, Albumin 1.6L, Globulin 4.7, Albumin/Globulin Ratio 0.3L 10/16/19 05:06: POC Whole Blood Glucose [Pending] Current Medications Medications (Trade) Dose Ordered Sig/Penny Route PRN Reason Start Time Stop Time Status Last Admin Dose Admin Acetaminophen (Tylenol) 325 mg Q6H PRN GT Temp >100.5 10/11/19 04:45 10/23/19 10:44 10/16/19 06:19 Ascorbic Acid (Vitamin C) 500 mg DAILY ORAL 10/11/19 09:00 11/05/19 08:59 10/16/19 08:22 Chlorhexidine Gluconate (Ling-Hex 2%) 1 applic DAILY@2000 TOPIC 10/11/19 20:00 12/22/19 19:59 10/15/19 20:28 Clonidine HCl (Catapres TTS-3) 1 patch QWEEK TDERMAL 10/14/19 12:00 01/12/20 11:59 10/14/19 11:51 Daptomycin 250 mg/ Sodium Chloride 55 ml @ 100 mls/hr Q48H IV 10/11/19 16:00 10/16/19 15:59 10/15/19 16:58 Dextrose (Dextrose 50%) 25 ml Q30M PRN IV Hypoglycemia 10/11/19 04:30 01/03/20 18:29 Dextrose (Dextrose 50%) 50 ml Q30M PRN IV Hypoglycemia 10/11/19 04:30 01/03/20 18:29 Diltiazem HCl (Cardizem Tab) 90 mg Q6HR GT 10/11/19 06:00 11/09/19 11:59 10/15/19 23:21 Docusate Sodium (Colace) 100 mg Q8HR GT 10/14/19 14:01 11/13/19 14:00 10/16/19 05:14 Epoetin Gelacio (Epoetin Gelacio(ESRD on dialysis)) 10,000 unit MON-MON-MON SUBQ 10/14/19 21:00 01/12/20 20:59 10/14/19 20:56 Haloperidol Lactate (Haldol) 5 mg Q6H PRN IM Agitation 10/11/19 05:00 11/22/19 10:59 10/11/19 12:34 Heparin Sodium (Porcine) (Heparin 5000 units/ml) 5,000 units EVERY 12 HOURS SUBQ 10/11/19 09:00 10/30/19 08:59 10/16/19 08:24 Insulin Aspart (NovoLOG) Q6HR SUBQ 10/11/19 06:00 01/03/20 20:59 Lansoprazole (Prevacid) 30 mg Q12HR GT 10/11/19 09:00 10/27/19 20:59 10/16/19 08:22 Lisinopril (PriniviL) 20 mg BID GT 10/11/19 09:00 11/08/19 17:59 10/16/19 08:22 Metoclopramide HCl (Reglan) 5 mg EVERY 6 HOURS GT 10/11/19 06:00 11/08/19 11:59 10/16/19 05:14 Metoprolol Tartrate (Lopressor) 25 mg Q12HR GT 10/11/19 09:00 01/07/20 20:59 10/16/19 08:22 Minoxidil (Loniten) 2.5 mg Q8HR ORAL 10/11/19 06:00 01/08/20 13:59 10/16/19 05:15 Morphine Sulfate (Morphine Sulfate) 2 mg Q6H PRN IVP For Pain 10/16/19 09:45 10/23/19 09:44 Polyethylene Glycol (Miralax) 17 gm BEDTIME ORAL 10/11/19 21:00 10/31/19 20:59 10/15/19 20:28 Risperidone (RisperDAL) 2 mg BEDTIME ORAL 10/11/19 21:00 11/19/19 20:59 10/15/19 20:28 Sorbitol (sorbitoL) 30 ml EVERY 6 HOURS PRN GT Constipation 10/11/19 06:00 10/29/19 17:59 Vitamin B Complex/ Vit C/Folic Acid (Nephrovite) 1 tab DAILY ORAL 10/11/19 09:00 11/05/19 08:59 10/16/19 08:22 Zinc Sulfate (Zinc Sulfate) 220 mg DAILY ORAL 10/11/19 09:00 10/21/19 08:59 10/16/19 08:21 Assessment/Plan Assessment/Plan ASSESSMENT Acute on chronic hypoxemic respiratory failure ( trach dependent), now on vent Tracheostomy status, s/p change to cuffed trach Sepsis Pulmonary edema Pleural effusion -worsening left pl effusion s/p thoracentesis L pleural effusion 09/26 -900 ml Pneumonia with MDR Pseudomonas UTI CHF ? cardiorenal COPD Acute kidney injury and chronic kidney disease-requiring start of HD Hypertension Atrial fibrillation Moderate pulm HTN Moderate AR Dysphagia , feeding by G-tube Electrolyte abnormalities Anemia Toxic metabolic encephalopathy likely due to sepsis and ARF HTN PAF Fevers. leukocytosis PLAN OF CARE PAULIE on vent AC trach changed 8/4 pm from uncuffed to cuffed Shiley#[address] chest w/out contrast: - Bilateral pleural effusions, right greater than left, with bilateral lower lobe consolidation or volume loss. -Ground-glass densities in the upper lobes bilaterally. This is not specific. -Tracheostomy. -Increased superior mediastinal density. Stability of adenopathy cannot be excluded. -Atherosclerotic change. -Gastrostomy. -Ascites. -Left renal stent with left hydronephrosis and renal atrophy. VQ scan -> low probability for PE worsening resp status was due to need for HD, now after HD started, resp status improving, down to PEEP 5 and AC 20 trach care , pulmonary toilet Mucomyst was prior dc given lots of thin secretions, continue Duoneb prn rapid COVID 19 NGT x3 off Fentanyl gtt since 10/09 FiO2 down to 40% last ABG stable 10/09 CXR 10/14 -increased right pleural fluid and parenchymal disease, doubt PNA likely fluid tolerated CPAP trials with PS 8 FiO2 40% 10/14 x 4 hrs, then desaturated and placed back on AC vent continue CPAP trials as tolerated may continue in subacute upon discharge s/p thoracentesis L pleural effusion 09/26 am -> 900 ml fluid analysis noted, unlikely empyema given small # of WBC fup with fluid cx ( apparently never sent despite orders) cytology -> NGT, no malignant cells aspiration precautions venous Duplex BLE -> NGT DVT prophylaxis pulm toilet, BP elevated BP regimen optimized as per nephro monitor volumes was on gentle IVF-> dc s/p prior diuretic-Lasix require initiation of HD continue further HD as per nephro with close monitoring of volumes, renal parameters and lytes -per nephro recs abx as per ID- s/p gent x 1, now on Vanco and Zerbaxa , completed 10/02 SCX 8/3 + Proteus, SCX 09/22 Pseudomonas MDR UCX 8/2 + Providencia , UCX 09/22 VRE 10-20 K only BCX 8/2 Staph epidermidis, BCX / NGT , BCX 09/22 and 09/26 - NGTD UCX 10/07 + VRE, Laura- per ID started on Dapto 10/10- ECHO with pEF , moderate pulm HTN and moderate AR BP management with current regimen of BB, Cardizem and Hydralazine, remains in SR monitor HH with goal to keep Hgb >7, heme on board on EPO supportive care pain management wound care bowel regimen stable for dc from pulm standpoint dc plan in progress case discussed and evaluated by supervising physician Juve Martinez MD 10/16/19 1104: Subjective Allergies: Coded Allergies: No Known Allergies (Unverified , 10/10/17) Assessment/Plan Assessment/Plan Patient seen and examined with COMPUTER ART INSTRUCTOR. Agree with above A&P as it reflects our joint deliberations. Yara Castro NP Oct 16, 2019 10:14 Juve Martinez MD Oct 16, 2019 11:04
[2019-10-16] MEDS: Morphine Sulfate 2mg/ml Inj(IV/IM USE ONLY) IVP PRN (10:16)
[2019-10-16 12:00] VITALS: BP 140/69
--- NOTE | 2019-10-16 13:22 | Infectious Diseases Prog Note ---
Assessment/Plan 49yo F with: Fever, recurrent; improving Leukocytosis, recurrent; now resolved- r/o new infection -10/14 Bcx p Acute hypoxic resp failure: Now on vent, worsening, FiO2 100% > 80% 09/27 > 60% >40% 10/08 >30% 10/09 >40% 10/14 Pneumonia, COVID19 neg x3 - MDR PsA pneumonia,s pr x 10/14 CXR: Increased right pleural fluid and parenchymal disease, since previous exam of 10/09/2019. Stable pleural and parenchymal disease on the left 10/07 CXR: Bilateral infiltrates versus edema, left greater than right pleural effusions are again demonstrated, unchanged. There is slightly better inspiration currently. 09/29 CXR: Bilateral edema versus infiltrates appears slightly worse than on the prior study. There is probably some pleural fluid on the left. 09/26 S/P thoracentesis, 900cc removed, only 67 WBC in fluid analysis, unlikely empyema 09/26 CXR: Worsening R perihilar opacity 09/26 BCx Neg 09/24 CXR: Previously demonstrated right lateral basilar lucency is no longer evident, was presumably a skin fold artifact. Bilateral infiltrates and left pleural effusion are probably unchanged allowing for slight differences in technique. 09/22 Resp cx + MDR PsA (S-gent; I-colistin; R-levofloxacin, Zosyn, angelo) 09/22 BCx NTD 09/22 CXR: worsening BL pna 09/22 UA w/ persistent pyuria, now on HD, UCx +VRE, most likely colonizer as improving wo tx for this 09/19 V/Q scan, low probability of PE 09/18 Rapid COVID PCR neg 09/18 CT chest: Markedly suboptimal examination due to lack of IV contrast material. Bilateral pleural effusions, right greater than left, with bilateral lower lobe consolidation or volume loss. Ground glass densities in the upper lobes bilaterally. This is not specific. Tracheostomy. Increased superior mediastinal density. Stability of adenopathy cannot be excluded. Atherosclerotic change. Gastrostomy. Ascites. Left renal stent with left hydronephrosis and renal atrophy. 09/17 Chest US: Trace right and small left pleural effusions. No safe window identified for bedside thoracentesis. Note that the majority of the left pleural effusion is subpulmonic. 09/16 CXR: Worsening of right lung infiltrates and right effusion. V. duplex: NO DVT D-dimer elevated 09/15 Rapid COVID PCR neg 09/15 Sp cx ESBL P. mirablis 09/14 CXR: Bilateral airspace opacities, preferentially involving the right lung, consistent with multifocal infiltrate. Trace bilateral pleural effusions. No pneumothorax. Rapid COVID PCR neg Urine legionella neg 09/16 GPC bacteremia, real vs contaminant; does have hx of infected PPM- 09/14 Bcx 2/ S. epidermis; 09/15, , Bcx Neg 2d echo: no vegetations seen UTI, recurrent 09/14 u/a wbc tnct, nit neg, leuk +3; ucx >100k MDR P. stuarti (S Ceftriaxone, Meropenem) 09/22 UA w/ ongoing pyuria, unchanged 10/07 u/a wbc tnct, nit neg, leuk ; ucx >100k VRE 10/14 u/a wbc tnct; ucx p Unstageable sacral ulceration JAVIER on CKD --> now on HD Renal US: Limited exam due to abdominal ascites and shadowing from bowel gas. CT recommended for more sensitive evaluation. Moderate right hydronephrosis. Increased renal parenchymal echogenicity suggesting intrinsic/ medical renal disease. Question indwelling left ureteral stent versus artifact. Bladder not visualized. 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 epi-11/2018, sp > 6weeks IV vancomycin 11/27 SP ABBIE: no evidence for vegetation on any of the valves 11/26/18 SP PPM removal: OR findings:The fibrous capsule enclosing the generator was then opened and there was a [id number] amount of yellowish fluid drainage. The generator was then removed.Atrial and ventricular leads were detached. The necrotic tissue of the pocket was then removed and the pocket was flushed with an antibiotic solution. Capsule, wound tissue and lead tip cx: Neg 2d echo: no vegetation seen US chest: 4.6 x 3.4 x 0.9 cm hypoechoic/anechoic area overlying left chest pacemaker power pack. This could represent either a discrete fluid collection or a focal area of very edematous tissue. Infected fluid pocket also possible. 11/18 Bcx 3/4 S. epi; 11/20 Bcx neg; 11/24 Bcx Neg; 11/27 Bcx Neg Hx of PNA 11/2019? sp cx PsA (arnett S), ABC (I Ceftriaxone; otherwise negative) Sp cx MRSA, ABC (I Ceftriaxone; otherwise S) PMH: Afib HTN Dysphagia sp GT Aortic dissection s/p repair 2017, S/p PPM Parkinson's Disease Schizophrenia Anxiety COPD Chronic resp failure s/p trach Hx of tracheal bleeding [place] resident ([facility]) Plan: cont IV Daptomycin #6/7 for VRE UTI -monitor CPK 10/03 SP Zerbaxa #6, gent #7 for MDR PsA pna 09/29 SP vanco #15 for S.epi in BCx 09/27 SP angelo #13 09/16 SP Cefepime #3, Levaquin #3 Monitor CBC/CMP, temperatures trach/ peg care Aspiration precautions f/u repeat cultures and CXR if remains afebrile, Bcx NTD- can dc tomorrow D/w RN Thank you for this consultation. Will continue to follow along with you. Subjective Allergies: Coded Allergies: No Known Allergies (Unverified , 10/10/17) afebrile >36hrs leukocytosis resolved Objective Last 24 Hour Vital Signs Date Time Temp Pulse Resp B/P (MAP) Pulse Ox O2 Delivery O2 Flow Rate FiO2 10/16/19 12:03 58 18 40 10/16/19 10:48 53 20 40 10/16/19 09:02 66 20 40 10/16/19 08:22 64 152/71 10/16/19 08:22 152/71 10/16/19 08:00 62 10/16/19 08:00 96.8 62 22 152/71 (98) 98 10/16/19 08:00 40 10/16/19 08:00 Mechanical Ventilator Mechanical Ventilator Mechanical Ventilator 10/16/19 07:12 60 20 40 10/16/19 06:49 98.0 10/16/19 05:15 132/68 10/16/19 05:08 52 132/68 10/16/19 04:36 55 20 40 10/16/19 04:00 98.0 61 20 131/68 (89) 100 10/16/19 04:00 40 10/16/19 04:00 Mechanical Ventilator Mechanical Ventilator Mechanical Ventilator 10/16/19 03:53 58 10/16/19 02:57 60 20 40 10/16/19 01:30 62 22 40 10/16/19 00:00 40 10/16/19 00:00 Mechanical Ventilator Mechanical Ventilator Mechanical Ventilator 10/15/19 23:54 98.2 67 22 133/60 (84) 99 10/15/19 23:30 64 10/15/19 23:30 62 21 40 10/15/19 23:21 66 133/60 10/15/19 21:24 63 20 40 10/15/19 21:16 124/62 10/15/19 20:29 66 115/59 10/15/19 20:00 Mechanical Ventilator Mechanical Ventilator Mechanical Ventilator 10/15/19 20:00 40 10/15/19 20:00 98.1 66 22 115/59 (77) 100 10/15/19 19:38 63 10/15/19 19:30 64 20 40 10/15/19 17:32 137/66 10/15/19 17:31 65 137/66 10/15/19 16:51 66 20 40 10/15/19 16:00 40 10/15/19 16:00 98.9 65 25 137/66 (89) 100 10/15/19 16:00 Mechanical Ventilator Mechanical Ventilator Mechanical Ventilator 10/15/19 15:32 66 10/15/19 15:26 98.2 10/15/19 15:18 65 20 40 10/15/19 14:49 162/79 10/15/19 13:38 96 10/15/19 13:34 74 24 40 Height (Feet): 5 Height (Inches): 5.00 Weight (Pounds): 144 Gen: no distress Cardiovascular: RrR, S1 S2 normal Respiratory: decreased breath sounds Abdomen: soft, non-tender, present bowel sounds Extremities: no edema, no tenderness Microbiology Date/Time Source Procedure Growth Status 10/15/19 13:20 Urine,Clean Catch Urine Culture - Preliminary Resulted Laboratory Tests Test 10/15/19 13:20 10/15/19 17:29 10/15/19 23:18 10/16/19 02:40 Urine Color Yellow Urine Appearance Cloudy Urine pH 6 (4.5-8.0) Urine Specific [place] 1.005 (1.005-1.035) Urine Protein 3+ (NEGATIVE) H Urine Glucose (UA) Negative (NEGATIVE) Urine Ketones Negative (NEGATIVE) Urine Blood 4+ (NEGATIVE) H Urine Nitrite Negative (NEGATIVE) Urine Bilirubin Negative (NEGATIVE) Urine Urobilinogen Normal MG/DL (0.0-1.0) Urine Leukocyte Esterase 3+ (NEGATIVE) H Urine RBC 10-15 /HPF (0 - 2) H Urine WBC Tntc /HPF (0 - 2) H Urine Squamous Epithelial Cells Occasional /LPF Urine Bacteria Many /HPF (NONE) H Urine Yeast Moderate /HPF (NONE) H POC Whole Blood Glucose 99 MG/DL (74-106) Pending White Blood Count 8.3 K/UL (4.8-10.8) Red Blood Count 3.46 M/UL (4.20-5.40) L Hemoglobin 10.4 G/DL (12.0-16.0) L Hematocrit 32.4 % (37.0-47.0) L Mean Corpuscular Volume 94 FL (80-99) Mean Corpuscular Hemoglobin 30.1 PG (27.0-31.0) Mean Corpuscular Hemoglobin Concent 32.2 G/DL (32.0-36.0) Red Cell Distribution Width 14.9 % (11.6-14.8) H Platelet Count 371 K/UL (150-450) Mean Platelet Volume 4.8 FL (6.5-10.1) L Neutrophils (%) (Auto) 70.7 % (45.0-75.0) Lymphocytes (%) (Auto) 17.9 % (20.0-45.0) L Monocytes (%) (Auto) 6.4 % (1.0-10.0) Eosinophils (%) (Auto) 4.3 % (0.0-3.0) H Basophils (%) (Auto) 0.7 % (0.0-2.0) Sodium Level 136 MMOL/L (136-145) Potassium Level 3.7 MMOL/L (3.5-5.1) Chloride Level 100 MMOL/L (98-107) Carbon Dioxide Level 27 MMOL/L (21-32) Anion Gap 9 mmol/L (5-15) Blood Urea Nitrogen 76 mg/dL (7-18) H Creatinine 2.7 MG/DL (0.55-1.30) H Estimat Glomerular Filtration Rate 18.9 mL/min (>60) Glucose Level 112 MG/DL (74-106) H Calcium Level 8.8 MG/DL (8.5-10.1) Phosphorus Level 3.7 MG/DL (2.5-4.9) Magnesium Level 2.8 MG/DL (1.8-2.4) H Total Bilirubin 0.4 MG/DL (0.2-1.0) Aspartate Amino Transf (AST/SGOT) 21 U/L (15-37) Alanine Aminotransferase (ALT/SGPT) 12 U/L (12-78) Alkaline Phosphatase 150 U/L (46-116) H Total Protein 6.3 G/DL (6.4-8.2) L Albumin 1.6 G/DL (3.4-5.0) L Globulin 4.7 g/dL Albumin/Globulin Ratio 0.3 (1.0-2.7) L Test 10/16/19 05:06 10/16/19 11:54 POC Whole Blood Glucose Pending 126 MG/DL (74-106) H Current Medications Medications (Trade) Dose Ordered Sig/Penny Route PRN Reason Start Time Stop Time Status Last Admin Dose Admin Acetaminophen (Tylenol) 325 mg Q6H PRN GT Temp >100.5 10/11/19 04:45 10/23/19 10:44 10/16/19 06:19 Ascorbic Acid (Vitamin C) 500 mg DAILY ORAL 10/11/19 09:00 11/05/19 08:59 10/16/19 08:22 Chlorhexidine Gluconate (Ling-Hex 2%) 1 applic DAILY@2000 TOPIC 10/11/19 20:00 12/22/19 19:59 10/15/19 20:28 Clonidine HCl (Catapres TTS-3) 1 patch QWEEK TDERMAL 10/14/19 12:00 01/12/20 11:59 10/14/19 11:51 Daptomycin 250 mg/ Sodium Chloride 55 ml @ 100 mls/hr Q48H IV 10/11/19 16:00 10/16/19 15:59 10/15/19 16:58 Dextrose (Dextrose 50%) 25 ml Q30M PRN IV Hypoglycemia 10/11/19 04:30 01/03/20 18:29 Dextrose (Dextrose 50%) 50 ml Q30M PRN IV Hypoglycemia 10/11/19 04:30 01/03/20 18:29 Diltiazem HCl (Cardizem Tab) 90 mg Q8HR GT 10/16/19 14:00 11/09/19 11:59 Docusate Sodium (Colace) 100 mg Q8HR GT 10/14/19 14:01 11/13/19 14:00 10/16/19 05:14 Epoetin Gelacio (Epoetin Gelacio(ESRD on dialysis)) 10,000 unit MON- SUBQ 10/14/19 21:00 01/12/20 20:59 10/14/19 20:56 Haloperidol Lactate (Haldol) 5 mg Q6H PRN IM Agitation 10/11/19 05:00 11/22/19 10:59 10/11/19 12:34 Heparin Sodium (Porcine) (Heparin 5000 units/ml) 5,000 units EVERY 12 HOURS SUBQ 10/11/19 09:00 10/30/19 08:59 10/16/19 08:24 Insulin Aspart (NovoLOG) Q6HR SUBQ 10/11/19 06:00 01/03/20 20:59 Lansoprazole (Prevacid) 30 mg Q12HR GT 10/11/19 09:00 10/27/19 20:59 10/16/19 08:22 Lisinopril (PriniviL) 20 mg BID GT 10/11/19 09:00 11/08/19 17:59 10/16/19 08:22 Metoclopramide HCl (Reglan) 5 mg EVERY 6 HOURS GT 10/11/19 06:00 11/08/19 11:59 10/16/19 12:54 Metoprolol Tartrate (Lopressor) 25 mg Q12HR GT 10/11/19 09:00 01/07/20 20:59 10/16/19 08:22 Minoxidil (Loniten) 2.5 mg Q8HR ORAL 10/11/19 06:00 01/08/20 13:59 10/16/19 05:15 Morphine Sulfate (Morphine Sulfate) 2 mg Q6H PRN IVP For Pain 10/16/19 09:45 10/23/19 09:44 10/16/19 10:16 Polyethylene Glycol (Miralax) 17 gm BEDTIME ORAL 10/11/19 21:00 10/31/19 20:59 10/15/19 20:28 Risperidone (RisperDAL) 2 mg BEDTIME ORAL 10/11/19 21:00 11/19/19 20:59 10/15/19 20:28 Sorbitol (sorbitoL) 30 ml EVERY 6 HOURS PRN GT Constipation 10/11/19 06:00 10/29/19 17:59 Vitamin B Complex/ Vit C/Folic Acid (Nephrovite) 1 tab DAILY ORAL 10/11/19 09:00 11/05/19 08:59 10/16/19 08:22 Zinc Sulfate (Zinc Sulfate) 220 mg DAILY ORAL 10/11/19 09:00 10/21/19 08:59 10/16/19 08:21 Doreen Nino M.D. Oct 16, 2019 13:22
[2019-10-16] MEDS: Haloperidol 5mg/ml Inj IM PRN ×2 (15:21→21:27)
[2019-10-16 16:00] VITALS: BP 135/66
--- NOTE | 2019-10-16 18:22 | Surgery Progress Note ---
Surgery Progress Note Subjective Symptoms: improved, tolerating diet, passing flatus Objective Last 24 Hour Vital Signs Date Time Temp Pulse Resp B/P (MAP) Pulse Ox O2 Delivery O2 Flow Rate FiO2 10/16/19 17:42 135/66 10/16/19 17:08 57 20 40 10/16/19 16:00 40 10/16/19 16:00 98.1 58 20 135/66 (89) 96 10/16/19 16:00 65 10/16/19 16:00 Mechanical Ventilator Mechanical Ventilator Mechanical Ventilator 10/16/19 14:43 63 25 40 10/16/19 14:05 98 10/16/19 13:26 140/69 10/16/19 13:22 56 140/69 10/16/19 13:13 62 23 40 10/16/19 12:03 58 18 40 10/16/19 12:00 53 10/16/19 12:00 Mechanical Ventilator Mechanical Ventilator Mechanical Ventilator 10/16/19 12:00 40 10/16/19 12:00 97.9 56 22 140/69 (92) 98 10/16/19 10:48 53 20 40 10/16/19 09:02 66 20 40 10/16/19 08:22 64 152/71 10/16/19 08:22 152/71 10/16/19 08:00 62 10/16/19 08:00 96.8 62 22 152/71 (98) 98 10/16/19 08:00 40 10/16/19 08:00 Mechanical Ventilator Mechanical Ventilator Mechanical Ventilator 10/16/19 07:12 60 20 40 10/16/19 06:49 98.0 10/16/19 05:15 132/68 10/16/19 05:08 52 132/68 10/16/19 04:36 55 20 40 10/16/19 04:00 98.0 61 20 131/68 (89) 100 10/16/19 04:00 40 10/16/19 04:00 Mechanical Ventilator Mechanical Ventilator Mechanical Ventilator 10/16/19 03:53 58 10/16/19 02:57 60 20 40 10/16/19 01:30 62 22 40 10/16/19 00:00 40 10/16/19 00:00 Mechanical Ventilator Mechanical Ventilator Mechanical Ventilator 10/15/19 23:54 98.2 67 22 133/60 (84) 99 10/15/19 23:30 64 10/15/19 23:30 62 21 40 10/15/19 23:21 66 133/60 10/15/19 21:24 63 20 40 10/15/19 21:16 124/62 10/15/19 20:29 66 115/59 10/15/19 20:00 Mechanical Ventilator Mechanical Ventilator Mechanical Ventilator 10/15/19 20:00 40 10/15/19 20:00 98.1 66 22 115/59 (77) 100 10/15/19 19:38 63 10/15/19 19:30 64 20 40 I&O Intake and Output 10/15/19 10/16/19 19:00 07:00 Intake Total 695 ml 680 ml Output Total 150 ml Balance 545 ml 680 ml Intake Free Water 160 ml 200 ml IV Total 55 ml Tube Feeding 480 ml 480 ml Output Urine Total 150 ml # Bowel Movements 2 3 Dressing: saturated Cardiovascular: RSR Respiratory: clear, decreased breath sounds Abdomen: non-tender, present bowel sounds Extremities: no edema, no tenderness, no cyanosis Laboratory Tests Test 10/15/19 23:18 10/16/19 02:40 10/16/19 05:06 10/16/19 11:54 POC Whole Blood Glucose Pending Pending 126 MG/DL (74-106) H White Blood Count 8.3 K/UL (4.8-10.8) Red Blood Count 3.46 M/UL (4.20-5.40) L Hemoglobin 10.4 G/DL (12.0-16.0) L Hematocrit 32.4 % (37.0-47.0) L Mean Corpuscular Volume 94 FL (80-99) Mean Corpuscular Hemoglobin 30.1 PG (27.0-31.0) Mean Corpuscular Hemoglobin Concent 32.2 G/DL (32.0-36.0) Red Cell Distribution Width 14.9 % (11.6-14.8) H Platelet Count 371 K/UL (150-450) Mean Platelet Volume 4.8 FL (6.5-10.1) L Neutrophils (%) (Auto) 70.7 % (45.0-75.0) Lymphocytes (%) (Auto) 17.9 % (20.0-45.0) L Monocytes (%) (Auto) 6.4 % (1.0-10.0) Eosinophils (%) (Auto) 4.3 % (0.0-3.0) H Basophils (%) (Auto) 0.7 % (0.0-2.0) Sodium Level 136 MMOL/L (136-145) Potassium Level 3.7 MMOL/L (3.5-5.1) Chloride Level 100 MMOL/L (98-107) Carbon Dioxide Level 27 MMOL/L (21-32) Anion Gap 9 mmol/L (5-15) Blood Urea Nitrogen 76 mg/dL (7-18) H Creatinine 2.7 MG/DL (0.55-1.30) H Estimat Glomerular Filtration Rate 18.9 mL/min (>60) Glucose Level 112 MG/DL (74-106) H Calcium Level 8.8 MG/DL (8.5-10.1) Phosphorus Level 3.7 MG/DL (2.5-4.9) Magnesium Level 2.8 MG/DL (1.8-2.4) H Total Bilirubin 0.4 MG/DL (0.2-1.0) Aspartate Amino Transf (AST/SGOT) 21 U/L (15-37) Alanine Aminotransferase (ALT/SGPT) 12 U/L (12-78) Alkaline Phosphatase 150 U/L (46-116) H Total Protein 6.3 G/DL (6.4-8.2) L Albumin 1.6 G/DL (3.4-5.0) L Globulin 4.7 g/dL Albumin/Globulin Ratio 0.3 (1.0-2.7) L Test 10/16/19 16:06 POC Whole Blood Glucose 116 MG/DL (74-106) H Plan Problems: (1) Anemia (2) Proteinuria (3) UTI (urinary tract infection) (4) ARF (acute renal failure) (5) ACS (acute coronary syndrome) (6) Respiratory failure, acute and chronic (7) HCAP (healthcare-associated pneumonia) (8) Abrasion of lip, initial encounter (9) COPD with exacerbation (10) Hypokalemia (11) Sepsis Assessment & Plan: Leukocytosis, anemia, abnormal labs. Renal insufficiency potentially dehydrated Abnormal LFTs alk phos elevated Urine noted significant bacteria likely UTI etiology Wound stable still requiring local care IV antibiotics per infectious disease Discussed with catheterization laboratory technician Dr. Floudian air mattress turn q2h nutritional tf will follow with recs thank you CT noted pending VQ scan - noted poor study low prob PE work respiratory increasing needs sedation weaning vent settings 80% peep 10 now comfortable Hd line in receiving HD plan for left thora 09/26 cont weaning vent as tolerated improving labs improved placement d/c planning (12) Chronic respiratory failure (13) Ascites (14) Bacteremia (15) Hypernatremia (16) Pleural effusion (17) Pacemaker (18) Aortic dissection, thoracic (19) Tracheostomy in place Assessment & Plan: trach stable no bleeding currently likely tongue etiology of mild oozing currently hemostatic without trauma (20) Feeding by G-tube Assessment & Plan: okay to resume tube feeds via g tube patent and functional dressings okay DAILY ESTIMATED NEEDS: Needs based on Pulmonary, wound 49kg 30-35 kcals/kg 1591-2133 total kcals 1.25-2 g protein/kg 61-98 g total protein Fluid per MD NUTRITION DIAGNOSIS: * Swallowing difficulty R/T dysphagia, respiratory status as evidenced by vent dep via T-collar, GT Dep. (CURRENT TF: Nepro @45ml/hr x 24 hrs) ENTERAL NUTRITION RECOMMENDATIONS: Nepro @ 40ml/hr x 24 hrs to provide 960ml, 1728kcal, 78g prot, 698ml free water * Rec LOWER current rate to 40ml/hr for 24 hrs run. * Water flush of 100ml q 6 hrs per orders * HOB over 30 degrees ADDITIONAL RECOMMENDATIONS: * Per SNF: HT=63", YC=[id number] -> rec calibrated bedscale wt * Pt on Nepro BASIC COMBATANT SWIMMER, possible h/o electrolyte imbalance -> monitor lytes closely (K low at this time) * RN CLINICAL DOCUMENTATION SPECIALIST eval for oral grat if appropriate * F/up w/ WC eval-> add FRANKLIN in 4oz H20 BID via GT (21) JAVIER (acute kidney injury) (22) Elevated alkaline phosphatase level Assessment & Plan: noted on labs trend US ordered will follow with recs thank you (23) Acute encephalopathy (24) GT CLOGGED (25) Sacral decubitus ulcer, stage IV Assessment & Plan: Pt presented on admission with Full thickness stage 4 Sacral Pressure injury which extends into R gluteal cheek. Base of wound is granular with bone exposure at base of sacrococcygeal.(L)10.5cm x (W06.5cm x (D) 2.8cm , undermining 11-3 by 3.6cm @12 o'clock. small amt serosanguineous exudate noted . Springer epithelial along edges bordered by darker skin tone without erythema. Resolving Pressure injury L ischium. Base of wound is 95% pink epithelial ,5% noni at center base of wound. No exudate noted. Both heels are boggy with non-Blanching erythema. Tx.plan: Cleanse Sacral wound with Saline. Loosely pack with Hydrogel impregnated Kerlix. Apply Moisture Barrier Periwound. Cover with Optifoam drsg Daily and prn. Apply Moisture Barrier paste to L Ischium. Cover with Optifoam drsg. Changee very 3 days and prn. Apply Cavilon Skin Barrier to both heels. Cover each heel with Optifoam drsgs. Change every 7 days and prn. Reposition at least every 2hours or as tolerated. Off-load heels with pillow. APM/MAXWELL Mattress overlay. Sacral wound resolving. Wound is smaller in size with less depth and undermining (L)8.5cm x (W)5cm x (D)1.3cm, undermining clockwise 11-3 by 2.1cm @ 12o'clock. Base of wound is pink and moist, small area of bone exposure at base. Small amt. seropurulent exudate noted. No odor noted. Periwound without evidence of further skin breakdown noted. Wound Tx. are effective and continued as ordered. Al wound prevention protocols continued as care-planned. Tx.Plan:Cleanse sacral wound with Saline. Loosely pack with Hydrogel impregnated kerlix. Apply Moisture Barrier Paste periwound. Cover with Optifoam drsg Daily and prn. Apply Cavilon Skin Barrier to both heels and malleoli. Cover eachsite with Optifoam drsgs. Change every 7 days and prn. Reposition at least every 2hours or as tolerated. Off-load heels with pillow. APM/Maxwell Mattress overlay. Lane Saavedra Oct 16, 2019 18:22
[2019-10-16 20:00] VITALS: BP 138/69
[2019-10-16] MEDS: Dyna-Hex 2% Top Sol 2oz TOPIC SCH (20:30)
[2019-10-16] MEDS: Miralax 17gm pkt ORAL SCH (20:30)
[2019-10-16] MEDS: Epoetin Alfa-EPBX(ESRD on dialysis)10,000 unit/ml vial SUBQ SCH (21:09)
--- NOTE | 2019-10-16 22:55 | General Progress Note ---
Assessment/Plan Status: stable, other - Mood has improved he is able to smile there is no continuous tearing overall she looks better today energy looking the last several days continue with the same management Status Narrative Patient appears stable she is currently on daptomycin IV she is afebrile without leukocytosis however she is intermittently spike fever and multiple cultures were taken yesterday repeat laboratory tests will be done in a.m. LUCAS DONG MD Subjective Constitutional: Reports: other - Awake alert afebrile no acute distress HEENT: Reports: no symptoms Cardiovascular: Reports: other - No shortness of breath palpitations or dizziness Respiratory: Reports: other - No cough wheezing or expectoration Gastrointestinal/Abdominal: Reports: no symptoms, poor appetite Genitourinary: Reports: no symptoms Neurologic/Psychiatric: Reports: anxiety, depressed, weakness Endocrine: Reports: no symptoms Allergies: Coded Allergies: No Known Allergies (Unverified , 10/10/17) Objective Last 24 Hour Vital Signs Date Time Temp Pulse Resp B/P (MAP) Pulse Ox O2 Delivery O2 Flow Rate FiO2 10/16/19 21:09 141/68 10/16/19 21:03 58 141/68 10/16/19 20:33 59 20 40 10/16/19 20:28 58 138/69 10/16/19 20:00 Mechanical Ventilator Mechanical Ventilator Mechanical Ventilator 10/16/19 20:00 40 10/16/19 20:00 98.0 58 20 138/69 (92) 98 10/16/19 19:09 60 10/16/19 18:35 59 20 40 10/16/19 17:42 135/66 10/16/19 17:08 57 20 40 10/16/19 16:00 40 10/16/19 16:00 98.1 58 20 135/66 (89) 96 10/16/19 16:00 65 10/16/19 16:00 Mechanical Ventilator Mechanical Ventilator Mechanical Ventilator 10/16/19 14:43 63 25 40 10/16/19 14:05 98 10/16/19 13:26 140/69 10/16/19 13:22 56 140/69 10/16/19 13:13 62 23 40 10/16/19 12:03 58 18 40 10/16/19 12:00 53 10/16/19 12:00 Mechanical Ventilator Mechanical Ventilator Mechanical Ventilator 10/16/19 12:00 40 10/16/19 12:00 97.9 56 22 140/69 (92) 98 10/16/19 10:48 53 20 40 10/16/19 09:02 66 20 40 10/16/19 08:22 64 152/71 10/16/19 08:22 152/71 10/16/19 08:00 62 10/16/19 08:00 96.8 62 22 152/71 (98) 98 10/16/19 08:00 40 10/16/19 08:00 Mechanical Ventilator Mechanical Ventilator Mechanical Ventilator 10/16/19 07:12 60 20 40 10/16/19 06:49 98.0 10/16/19 05:15 132/68 10/16/19 05:08 52 132/68 10/16/19 04:36 55 20 40 10/16/19 04:00 98.0 61 20 131/68 (89) 100 10/16/19 04:00 40 10/16/19 04:00 Mechanical Ventilator Mechanical Ventilator Mechanical Ventilator 10/16/19 03:53 58 10/16/19 02:57 60 20 40 10/16/19 01:30 62 22 40 10/16/19 00:00 40 10/16/19 00:00 Mechanical Ventilator Mechanical Ventilator Mechanical Ventilator 10/15/19 23:54 98.2 67 22 133/60 (84) 99 10/15/19 23:30 64 10/15/19 23:30 62 21 40 10/15/19 23:21 66 133/60 Intake and Output 10/15/19 10/16/19 19:00 07:00 Intake Total 695 ml 680 ml Output Total 150 ml Balance 545 ml 680 ml Intake Free Water 160 ml 200 ml IV Total 55 ml Tube Feeding 480 ml 480 ml Output Urine Total 150 ml # Bowel Movements 2 3 Laboratory Tests 10/15/19 23:18: POC Whole Blood Glucose [Pending] 10/16/19 02:40: White Blood Count 8.3, Red Blood Count 3.46L, Hemoglobin 10.4L, Hematocrit 32.4L , Mean Corpuscular Volume 94, Mean Corpuscular Hemoglobin 30.1, Mean Corpuscular Hemoglobin Concent 32.2, Red Cell Distribution Width 14.9H, Platelet Count 371, Mean Platelet Volume 4.8L, Neutrophils (%) (Auto) 70.7, Lymphocytes (%) (Auto) 17.9L, Monocytes (%) (Auto) 6.4, Eosinophils (%) (Auto) 4.3H, Basophils (%) (Auto) 0.7, Sodium Level 136, Potassium Level 3.7, Chloride Level 100, Carbon Dioxide Level 27, Anion Gap 9, Blood Urea Nitrogen 76H, Creatinine 2.7H, Estimat Glomerular Filtration Rate 18.9, Glucose Level 112H, Calcium Level 8.8, Phosphorus Level 3.7, Magnesium Level 2.8H, Total Bilirubin 0.4, Aspartate Amino Transf (AST/SGOT) 21, Alanine Aminotransferase (ALT/SGPT) 12, Alkaline Phosphatase 150H, Total Protein 6.3L, Albumin 1.6L, Globulin 4.7, Albumin/Globulin Ratio 0.3L 10/16/19 05:06: POC Whole Blood Glucose [Pending] 10/16/19 11:54: POC Whole Blood Glucose 126H 10/16/19 16:06: POC Whole Blood Glucose 116H Height (Feet): 5 Height (Inches): 5.00 Weight (Pounds): 144 General Appearance: alert, lethargic EENT: normal ENT inspection Neck: supple - No goiter no mass no lymphadenopathy Cardiovascular: normal rate, regular rhythm, no gallop/murmur, no JVD Respiratory/Chest: lungs clear, normal breath sounds, other - Decreased breath sounds on both sides more on the right than on the left Abdomen: normal bowel sounds, non tender, soft, no organomegaly, no mass Extremities: non-tender, other - No cyanosis no clubbing and no edema there is diffuse muscle wasting of both lower extremity Neurologic: alert, oriented x 3, responsive, motor weakness, depressed affect Skin: warm/dry Lucas Dong MD Oct 16, 2019 22:55
--- NOTE | 2019-10-16 23:08 | Psych Consult Progress Note ---
Psychiatry Progress Note Psychiatry Progress Note Subjective the pt was calm dec agitation manageable with morphine and haldol off restraints Medications Current Medications Medications (Trade) Dose Ordered Sig/Penny Route PRN Reason Start Time Stop Time Status Last Admin Dose Admin Acetaminophen (Tylenol) 325 mg Q6H PRN GT Temp >100.5 10/11/19 04:45 10/23/19 10:44 10/16/19 06:19 Ascorbic Acid (Vitamin C) 500 mg DAILY ORAL 10/11/19 09:00 11/05/19 08:59 10/16/19 08:22 Chlorhexidine Gluconate (Ling-Hex 2%) 1 applic DAILY@1999 TOPIC 10/11/19 20:00 12/22/19 19:59 10/16/19 20:30 Clonidine HCl (Catapres TTS-3) 1 patch QWEEK TDERMAL 10/14/19 12:00 01/12/20 11:59 10/14/19 11:51 Dextrose (Dextrose 50%) 25 ml Q30M PRN IV Hypoglycemia 10/11/19 04:30 01/03/20 18:29 Dextrose (Dextrose 50%) 50 ml Q30M PRN IV Hypoglycemia 10/11/19 04:30 01/03/20 18:29 Diltiazem HCl (Cardizem Tab) 90 mg Q8HR GT 10/16/19 14:00 11/09/19 11:59 Docusate Sodium (Colace) 100 mg Q8HR GT 10/14/19 14:01 11/13/19 14:00 10/16/19 21:09 Epoetin Gelacio (Epoetin Gelacio(ESRD on dialysis)) 10,000 unit MON-MON-MON SUBQ 10/14/19 21:00 01/12/20 20:59 10/16/19 21:09 Haloperidol Lactate (Haldol) 5 mg Q6H PRN IM Agitation 10/11/19 05:00 11/22/19 10:59 10/16/19 21:27 Heparin Sodium (Porcine) (Heparin 5000 units/ml) 5,000 units EVERY 12 HOURS SUBQ 10/11/19 09:00 10/30/19 08:59 10/16/19 20:31 Insulin Aspart (NovoLOG) Q6HR SUBQ 10/11/19 06:00 11/20/20 20:59 Lansoprazole (Prevacid) 30 mg Q12HR GT 10/11/19 09:00 10/27/19 20:59 10/16/19 20:31 Lisinopril (PriniviL) 20 mg BID GT 10/11/19 09:00 11/08/19 17:59 10/16/19 17:42 Metoclopramide HCl (Reglan) 5 mg EVERY 6 HOURS GT 10/11/19 06:00 11/08/19 11:59 10/16/19 23:04 Metoprolol Tartrate (Lopressor) 25 mg Q12HR GT 10/11/19 09:00 01/07/20 20:59 10/16/19 08:22 Minoxidil (Loniten) 2.5 mg Q8HR ORAL 10/11/19 06:00 01/08/20 13:59 10/16/19 21:09 Morphine Sulfate (Morphine Sulfate) 2 mg Q6H PRN IVP For Pain 10/16/19 09:45 10/23/19 09:44 10/16/19 10:16 Polyethylene Glycol (Miralax) 17 gm BEDTIME ORAL 10/11/19 21:00 10/31/19 20:59 10/16/19 20:30 Risperidone (RisperDAL) 2 mg BEDTIME ORAL 10/11/19 21:00 11/19/19 20:59 10/16/19 20:30 Sorbitol (sorbitoL) 30 ml EVERY 6 HOURS PRN GT Constipation 10/11/19 06:00 10/29/19 17:59 Vitamin B Complex/ Vit C/Folic Acid (Nephrovite) 1 tab DAILY ORAL 10/11/19 09:00 11/05/19 08:59 10/16/19 08:22 Zinc Sulfate (Zinc Sulfate) 220 mg DAILY ORAL 10/11/19 09:00 10/21/19 08:59 10/16/19 08:21 Neurological/Psychiatric: Reports: anxiety, depressed, weakness Allergies: Coded Allergies: No Known Allergies (Unverified , 10/10/17) Objective Data Height (Feet): 5 Height (Inches): 5.00 Weight (Pounds): 144 General Appearance: alert, lethargic Additional Comments: awake, disoriented. Mood is agitated. Affect is flat. Thought process is concrete. Thought content, no suicidal or homicidal ideation. Cognition is impaired. Insight and judgment are impaired. Assessment/Plan [place] I: ASSESSMENT: AXIS I: Acute encephalopathy. Schizophrenia. AXIS II: Deferred. AXIS III: As above. AXIS IV: Low. AXIS V: 20. PLAN: 1. We will start the patient on risperidone 2 mg at bedtime. 2. Haldol IM. The patient improved after 1 dose and restraints was stopped at nighttime. 3. Continue to follow and readjust the medications. Status: stable, other - Mood has improved he is able to smile there is no continuous tearing overall she looks better today energy looking the last several days continue with the same management Status Narrative ASSESSMENT: AXIS I: Acute encephalopathy. Schizophrenia. AXIS II: Deferred. AXIS III: As above. AXIS IV: Low. AXIS V: 20. PLAN: 1. We will start the patient on risperidone 2 mg at bedtime. 2. Haldol IM. The patient improved after 1 dose and restraints was stopped at nighttime. 3. Continue to follow and readjust the medications. Assessment/Plan: ASSESSMENT: AXIS I: Acute encephalopathy. Schizophrenia. AXIS II: Deferred. AXIS III: As above. AXIS IV: Low. AXIS V: 20. PLAN: 1. We will start the patient on risperidone 2 mg at bedtime. 2. Haldol IM. The patient improved after 1 dose and restraints was stopped at nighttime. 3. Continue to follow and readjust the medications. Shanda Linares MD Oct 16, 2019 23:07
[2019-10-17] VITALS: BP 142/66
[2019-10-17] MEDS: Haloperidol 5mg/ml Inj IM PRN ×2 (03:32→10:48)
[2019-10-17 04:00] VITALS: BP 135/68
[2019-10-17 05:04] LABS: BASOPHILS % (AUTO) 0.8 % (0.0-2.0); EOSINOPHILS % (AUTO) 1.8 % (0.0-3.0); HEMATOCRIT 31.4 % (37.0-47.0); HEMOGLOBIN 10.3 G/DL (12.0-16.0); LYMPHOCYTES % (AUTO) 18.3 % (20.0-45.0); MEAN CORPUSCULAR VOLUME 93 FL (80-99); MONOCYTES % (AUTO) 5.8 % (1.0-10.0); NEUTROPHILS % (AUTO) 73.3 % (45.0-75.0); PLATELET COUNT 391 K/UL (150-450); RED BLOOD COUNT 3.38 M/UL (4.20-5.40); WHITE BLOOD COUNT 9.7 K/UL (4.8-10.8)
[2019-10-17] MEDS: dilTIAZem HCl 90mg tab GT SCH ×3 (05:09→21:49)
[2019-10-17] MEDS: NovoLOG Insulin Flexpen SUBQ SCH ×4 (05:10→23:40)
[2019-10-17] MEDS: Minoxidil 2.5mg tab ORAL SCH ×3 (05:20→23:39)
[2019-10-17] MEDS: Acetaminophen 650mg/20.3ml GT PRN ×2 (05:20→12:31)
[2019-10-17] MEDS: Docusate 100mg/10ml Liq GT SCH ×3 (05:20→21:50)
[2019-10-17] MEDS: Metoclopramide 10mg/10ml Liq GT SCH ×4 (05:20→23:39)
--- NOTE | 2019-10-17 07:03 | Hematology/Onc Progress Note ---
Assessment/Plan Assessment/Plan Assessment and Recs # Leukocytosis, now with gram positive bacteremias well as pna noted --> historically --> PPM site (pocket) infection (redness and pain, bacteremia) and likely pocket abscess - no vegetation seen on ABBIE --> is s'p pm removal and also pocket infection is better --> per cards recs in re to tach/davis --> wbc 15-->19-->17-->15-->13->12-->13-->12>13-->18-->9-->7-->16 --> ABX cefepime/levaquin--> vanc/angelo-> daptomycin --> ID recs are noted # Anemia of chronic disease due to underlying chronic medical issues, multifactorial --> Anemia workup has been reviewed, cw acd --> No evidence of hemolysis is noted, peripheral smear has been reviewed. --> Hgb goal >7. Transfuse prn. --> Epogen started --> Medications have been reviewed --> low threshold for gi evaluation in case has occult + --> hgb 7.1-->7.8-->8.9->9.2-->8.5-->9.7-->10-->8.8-->9.6-->8.7->8.6-->7.2->8.7- >9.1-->9.2-->9-->8.7-->9.3-->9.8-->10->10.3 --> 1 unit prbc 09/27 # Thrombocytois is likely reactive process, is s/p infection --> plt trend 610k-->706k-->354 --> p smear reviewed # Acute hypoxic respiratory failure s/p intubation 11/23- ?ARDS --> on vent/trach # Gram positive bacteremia- real bacteremia- 2ry to above and probable PNA --> per id care # JAVIER initially >2 --> on ivfs # Elevated d-dimer --> venous duplex and v/q scan # Dysphagia s/p peg # Thoracic aortic dissection s/p repair early 2017 # Psychiatric history on ativan/haldol # [place] resident # Dvt ppx --> heparin sq The timing of this note does not necessarily reflect the time of the patient was seen. Greatly appreciate consultation. Subjective HEENT: Denies: no symptoms, eye pain, blurred vision, tearing, double vision, ear pain, ear discharge, nose pain, nose congestion, throat pain, throat swelling, mouth pain, mouth swelling, other Cardiovascular: Denies: no symptoms, chest pain, edema, irregular heart rate, lightheadedness, palpitations, syncope, other Respiratory: Denies: no symptoms, cough, shortness of breath, SOB with excertion, SOB at rest, sputum, wheezing, other Genitourinary: Denies: no symptoms, burning, discharge, frequency, flank pain, hematuria, incontinence, pain, urgency, other Neurologic/Psychiatric: Denies: no symptoms, anxiety, depressed, emotional problems, headache, numbness, paresthesia, pre-existing deficit, seizure, tingling, tremors, weakness, other Hematologic/Lymphatic: Denies: no symptoms, anemia, easy bleeding, easy bruising, adenopathy, other Allergies: Coded Allergies: No Known Allergies (Unverified , 10/10/17) Subjective 09/16 on vent now, consulted in am pulm, on vent setting, labs noted, hep sq 09/17 meds noted, cbc noted, labs noted, no bleeding 09/18 is to undergo potential v/q scan given abg, labs noted, resless, on ativan, to get haldol today, roman ramesh 09/19 remains agitated, covering, with sacral wound seeping, likely cause of anemia, roman rn 09/26 restless, remains agitated, gtube ripped, eval with rn, and almai consulted 09/27 remains on vent, agitated, seen by gi, hgb low, roman George to transfuse 1 unit prbc 09/28 meds noted, no bleeding, on vent, s/p blood tranfusion, cbc pending, roman ramesh 09/29 remains in the icu, roman rn in the am, agitated, on versed, fentanyl, restraints 09/30 in icu, trach to vent, on gtube feeds, fentanyl, agitated 10/01 in icu, orman Ayoub rn, no bleeding, sleeping, labs noted, hgb >9 10/02 sedated in icu, is on vent, roman rn, more alert and more conversive with face grimaces 10/03 labs have been reviewed, no bleeding, icu, meds reviewed, on fentanyl and versed, to consult psych 10/05 remains on fentanyl, also with restraints, no bleeding, cbc ordered 10/06 remains obtunded, though reactive when proded, labs pending from am 10/07 hypertensive, asleep, no bleeding, roman rn, no major night sweats\ 10/08 formula leaking from gtube site, no bleeding, with some minor residual 10/09 remains on gtube feeds, on lactulose, no major changes, confused but nods 10/10 labs reviewed, lactulose discontinued as having diarrhea, no bleeding 10/12 meds reviewed, no bleeding, heparin given, roman Starr rn in am, comfortable 10/13 labs are noted, no bleeding, cbc is ordered for today, somewhat agitated 10/14 has been complaining of pain and frowning, no bleeding, hgb reviewed 10/15 hgb 10.4, no bleeding, stool is hard, difficult to collect for c.diff 10/16 restless, agitated overnight, getting haldol prn, roman rn at bedside Objective Objective Current Medications Medications (Trade) Dose Ordered Sig/Penny Route PRN Reason Start Time Stop Time Status Last Admin Dose Admin Acetaminophen (Tylenol) 325 mg Q6H PRN GT Temp >100.5 10/11/19 04:45 10/23/19 10:44 10/17/19 05:20 Ascorbic Acid (Vitamin C) 500 mg DAILY ORAL 10/11/19 09:00 11/05/19 08:59 10/16/19 08:22 Chlorhexidine Gluconate (Ling-Hex 2%) 1 applic DAILY@1999 TOPIC 10/11/19 20:00 12/22/19 19:59 10/16/19 20:30 Clonidine HCl (Catapres TTS-3) 1 patch QWEEK TDERMAL 10/14/19 12:00 01/12/20 11:59 10/14/19 11:51 Dextrose (Dextrose 50%) 25 ml Q30M PRN IV Hypoglycemia 10/11/19 04:30 01/03/20 18:29 Dextrose (Dextrose 50%) 50 ml Q30M PRN IV Hypoglycemia 10/11/19 04:30 01/03/20 18:29 Diltiazem HCl (Cardizem Tab) 90 mg Q8HR GT 10/16/19 14:00 11/09/19 11:59 Docusate Sodium (Colace) 100 mg Q8HR GT 10/14/19 14:01 11/13/19 14:00 10/17/19 05:20 Epoetin Gelacio (Epoetin Gelacio(ESRD on dialysis)) 10,000 unit SUBQ 10/14/19 21:00 01/12/20 20:59 10/16/19 21:09 Haloperidol Lactate (Haldol) 5 mg Q6H PRN IM Agitation 10/11/19 05:00 11/22/19 10:59 10/17/19 03:32 Heparin Sodium (Porcine) (Heparin 5000 units/ml) 5,000 units EVERY 12 HOURS SUBQ 10/11/19 09:00 10/30/19 08:59 10/16/19 20:31 Insulin Aspart (NovoLOG) Q6HR SUBQ 10/11/19 06:00 01/03/20 20:59 Lansoprazole (Prevacid) 30 mg Q12HR GT 10/11/19 09:00 10/27/19 20:59 10/16/19 20:31 Lisinopril (PriniviL) 20 mg BID GT 10/11/19 09:00 11/08/19 17:59 10/16/19 17:42 Metoclopramide HCl (Reglan) 5 mg EVERY 6 HOURS GT 10/11/19 06:00 11/08/19 11:59 10/17/19 05:20 Metoprolol Tartrate (Lopressor) 25 mg Q12HR GT 10/11/19 09:00 01/07/20 20:59 10/16/19 08:22 Minoxidil (Loniten) 2.5 mg Q8HR ORAL 10/11/19 06:00 01/08/20 13:59 10/17/19 05:20 Morphine Sulfate (Morphine Sulfate) 2 mg Q6H PRN IVP For Pain 10/16/19 09:45 10/23/19 09:44 10/16/19 10:16 Polyethylene Glycol (Miralax) 17 gm BEDTIME ORAL 10/11/19 21:00 10/31/19 20:59 10/16/19 20:30 Risperidone (RisperDAL) 2 mg BEDTIME ORAL 10/11/19 21:00 11/19/19 20:59 10/16/19 20:30 Sorbitol (sorbitoL) 30 ml EVERY 6 HOURS PRN GT Constipation 10/11/19 06:00 10/29/19 17:59 Vitamin B Complex/ Vit C/Folic Acid (Nephrovite) 1 tab DAILY ORAL 10/11/19 09:00 11/05/19 08:59 10/16/19 08:22 Zinc Sulfate (Zinc Sulfate) 220 mg DAILY ORAL 10/11/19 09:00 10/21/19 08:59 10/16/19 08:21 Last 24 Hour Vital Signs Date Time Temp Pulse Resp B/P (MAP) Pulse Ox O2 Delivery O2 Flow Rate FiO2 10/17/19 05:50 98.2 10/17/19 05:20 152/73 10/17/19 05:09 58 142/65 10/17/19 04:37 65 21 40 10/17/19 04:00 40 10/17/19 04:00 Mechanical Ventilator Mechanical Ventilator Mechanical Ventilator 10/17/19 04:00 98.2 56 20 135/68 (90) 99 10/17/19 03:27 62 10/17/19 02:55 68 21 40 10/17/19 00:43 55 20 40 10/17/19 00:00 98.2 57 20 142/66 (91) 99 10/17/19 00:00 Mechanical Ventilator Mechanical Ventilator Mechanical Ventilator 10/17/19 00:00 40 10/16/19 23:33 58 10/16/19 22:36 57 20 40 10/16/19 21:09 141/68 10/16/19 21:03 58 141/68 10/16/19 20:33 59 20 40 10/16/19 20:28 58 138/69 10/16/19 20:00 Mechanical Ventilator Mechanical Ventilator Mechanical Ventilator 10/16/19 20:00 40 10/16/19 20:00 98.0 58 20 138/69 (92) 98 10/16/19 19:09 60 10/16/19 18:35 59 20 40 10/16/19 17:42 135/66 10/16/19 17:08 57 20 40 9/2/20 16:00 40 10/16/19 16:00 98.1 58 20 135/66 (89) 96 10/16/19 16:00 65 10/16/19 16:00 Mechanical Ventilator Mechanical Ventilator Mechanical Ventilator 10/16/19 14:43 63 25 40 10/16/19 14:05 98 10/16/19 13:26 140/69 10/16/19 13:22 56 140/69 10/16/19 13:13 62 23 40 10/16/19 12:03 58 18 40 10/16/19 12:00 53 10/16/19 12:00 Mechanical Ventilator Mechanical Ventilator Mechanical Ventilator 10/16/19 12:00 40 10/16/19 12:00 97.9 56 22 140/69 (92) 98 10/16/19 10:48 53 20 40 10/16/19 09:02 66 20 40 10/16/19 08:22 64 152/71 10/16/19 08:22 152/71 10/16/19 08:00 62 10/16/19 08:00 96.8 62 22 152/71 (98) 98 10/16/19 08:00 40 10/16/19 08:00 Mechanical Ventilator Mechanical Ventilator Mechanical Ventilator 10/16/19 07:12 60 20 40 10/16/19 05:15 132/68 10/16/19 05:08 52 132/68 10/16/19 04:36 55 20 40 10/16/19 04:00 98.0 61 20 131/68 (89) 100 10/16/19 04:00 40 10/16/19 04:00 Mechanical Ventilator Mechanical Ventilator Mechanical Ventilator 10/16/19 03:53 58 10/16/19 02:57 60 20 40 10/16/19 01:30 62 22 40 10/16/19 00:00 40 10/16/19 00:00 Mechanical Ventilator Mechanical Ventilator Mechanical Ventilator 10/15/19 23:54 98.2 67 22 133/60 (84) 99 10/15/19 23:30 64 10/15/19 23:30 62 21 40 10/15/19 23:21 66 133/60 10/15/19 21:24 63 20 40 10/15/19 21:16 124/62 10/15/19 20:29 66 115/59 10/15/19 20:00 Mechanical Ventilator Mechanical Ventilator Mechanical Ventilator 10/15/19 20:00 40 10/15/19 20:00 98.1 66 22 115/59 (77) 100 10/15/19 19:38 63 10/15/19 19:30 64 20 40 10/15/19 17:32 137/66 10/15/19 17:31 65 137/66 10/15/19 16:51 66 20 40 10/15/19 16:00 40 10/15/19 16:00 98.9 65 25 137/66 (89) 100 10/15/19 16:00 Mechanical Ventilator Mechanical Ventilator Mechanical Ventilator 10/15/19 15:32 66 10/15/19 15:26 98.2 10/15/19 15:18 65 20 40 10/15/19 14:49 162/79 10/15/19 13:38 96 10/15/19 13:34 74 24 40 10/15/19 12:45 77 27 40 40 10/15/19 12:00 98.2 82 30 164/75 (104) 93 10/15/19 12:00 Mechanical Ventilator Mechanical Ventilator Mechanical Ventilator 10/15/19 12:00 40 10/15/19 12:00 93 175/83 10/15/19 11:42 81 10/15/19 11:15 86 25 40 40 10/15/19 09:03 72 25 40 40 10/15/19 08:08 72 142/68 10/15/19 08:08 142/68 10/15/19 08:00 97.9 72 24 142/68 (92) 91 10/15/19 08:00 40 10/15/19 08:00 Mechanical Ventilator Mechanical Ventilator Mechanical Ventilator 10/15/19 07:45 76 10/15/19 07:33 76 22 40 Intake and Output 10/16/19 10/17/19 19:00 07:00 Intake Total 40 ml 640 ml Output Total 500 ml Balance 40 ml 140 ml Intake Free Water 200 ml Tube Feeding 40 ml 440 ml Output Urine Total 500 ml # Bowel Movements 3 3 Labs Test 10/14/19 11:30 10/14/19 16:23 10/15/19 03:15 10/15/19 11:47 POC Whole Blood Glucose 104 MG/DL (74-106) 109 MG/DL (74-106) White Blood Count 16.5 K/UL (4.8-10.8) Red Blood Count 3.28 M/UL (4.20-5.40) Hemoglobin 10.1 G/DL (12.0-16.0) Hematocrit 30.9 % (37.0-47.0) Mean Corpuscular Volume 94 FL (80-99) Mean Corpuscular Hemoglobin 30.7 PG (27.0-31.0) Mean Corpuscular Hemoglobin Concent 32.6 G/DL (32.0-36.0) Red Cell Distribution Width 14.8 % (11.6-14.8) Platelet Count 398 K/UL (150-450) Mean Platelet Volume 5.2 FL (6.5-10.1) Neutrophils (%) (Auto) 84.3 % (45.0-75.0) Lymphocytes (%) (Auto) 8.1 % (20.0-45.0) Monocytes (%) (Auto) 4.6 % (1.0-10.0) Eosinophils (%) (Auto) 2.7 % (0.0-3.0) Basophils (%) (Auto) 0.4 % (0.0-2.0) Sodium Level 133 MMOL/L (136-145) Potassium Level 3.5 MMOL/L (3.5-5.1) Chloride Level 97 MMOL/L (98-107) Carbon Dioxide Level 28 MMOL/L (21-32) Anion Gap 8 mmol/L (5-15) Blood Urea Nitrogen 71 mg/dL (7-18) Creatinine 2.4 MG/DL (0.55-1.30) Estimat Glomerular Filtration Rate 21.7 mL/min (>60) Glucose Level 112 MG/DL (74-106) Calcium Level 8.8 MG/DL (8.5-10.1) Phosphorus Level 5.6 MG/DL (2.5-4.9) Magnesium Level 2.7 MG/DL (1.8-2.4) Total Bilirubin 0.3 MG/DL (0.2-1.0) Aspartate Amino Transf (AST/SGOT) 13 U/L (15-37) Alanine Aminotransferase (ALT/SGPT) 6 U/L (12-78) Alkaline Phosphatase 163 U/L (46-116) Total Protein 6.4 G/DL (6.4-8.2) Albumin 1.6 G/DL (3.4-5.0) Globulin 4.8 g/dL Albumin/Globulin Ratio 0.3 (1.0-2.7) Test 10/15/19 13:20 10/15/19 17:29 10/15/19 23:18 10/16/19 02:40 Urine Color Yellow Urine Appearance Cloudy Urine pH 6 (4.5-8.0) Urine Specific Enigma 1.005 (1.005-1.035) Urine Protein 3+ (NEGATIVE) Urine Glucose (UA) Negative (NEGATIVE) Urine Ketones Negative (NEGATIVE) Urine Blood 4+ (NEGATIVE) Urine Nitrite Negative (NEGATIVE) Urine Bilirubin Negative (NEGATIVE) Urine Urobilinogen Normal MG/DL (0.0-1.0) Urine Leukocyte Esterase 3+ (NEGATIVE) Urine RBC 10-15 /HPF (0 - 2) Urine WBC Tntc /HPF (0 - 2) Urine Squamous Epithelial Cells Occasional /LPF Urine Bacteria Many /HPF (NONE) Urine Yeast Moderate /HPF (NONE) POC Whole Blood Glucose 99 MG/DL (74-106) White Blood Count 8.3 K/UL (4.8-10.8) Red Blood Count 3.46 M/UL (4.20-5.40) Hemoglobin 10.4 G/DL (12.0-16.0) Hematocrit 32.4 % (37.0-47.0) Mean Corpuscular Volume 94 FL (80-99) Mean Corpuscular Hemoglobin 30.1 PG (27.0-31.0) Mean Corpuscular Hemoglobin Concent 32.2 G/DL (32.0-36.0) Red Cell Distribution Width 14.9 % (11.6-14.8) Platelet Count 371 K/UL (150-450) Mean Platelet Volume 4.8 FL (6.5-10.1) Neutrophils (%) (Auto) 70.7 % (45.0-75.0) Lymphocytes (%) (Auto) 17.9 % (20.0-45.0) Monocytes (%) (Auto) 6.4 % (1.0-10.0) Eosinophils (%) (Auto) 4.3 % (0.0-3.0) Basophils (%) (Auto) 0.7 % (0.0-2.0) Sodium Level 136 MMOL/L (136-145) Potassium Level 3.7 MMOL/L (3.5-5.1) Chloride Level 100 MMOL/L (98-107) Carbon Dioxide Level 27 MMOL/L (21-32) Anion Gap 9 mmol/L (5-15) Blood Urea Nitrogen 76 mg/dL (7-18) Creatinine 2.7 MG/DL (0.55-1.30) Estimat Glomerular Filtration Rate 18.9 mL/min (>60) Glucose Level 112 MG/DL (74-106) Calcium Level 8.8 MG/DL (8.5-10.1) Phosphorus Level 3.7 MG/DL (2.5-4.9) Magnesium Level 2.8 MG/DL (1.8-2.4) Total Bilirubin 0.4 MG/DL (0.2-1.0) Aspartate Amino Transf (AST/SGOT) 21 U/L (15-37) Alanine Aminotransferase (ALT/SGPT) 12 U/L (12-78) Alkaline Phosphatase 150 U/L (46-116) Total Protein 6.3 G/DL (6.4-8.2) Albumin 1.6 G/DL (3.4-5.0) Globulin 4.7 g/dL Albumin/Globulin Ratio 0.3 (1.0-2.7) Test 10/16/19 05:06 10/16/19 11:54 10/16/19 16:06 10/16/19 23:01 POC Whole Blood Glucose 126 MG/DL (74-106) 116 MG/DL (74-106) Test 10/17/19 03:00 10/17/19 04:48 White Blood Count 9.7 K/UL (4.8-10.8) Red Blood Count 3.38 M/UL (4.20-5.40) Hemoglobin 10.3 G/DL (12.0-16.0) Hematocrit 31.4 % (37.0-47.0) Mean Corpuscular Volume 93 FL (80-99) Mean Corpuscular Hemoglobin 30.5 PG (27.0-31.0) Mean Corpuscular Hemoglobin Concent 32.8 G/DL (32.0-36.0) Red Cell Distribution Width 15.0 % (11.6-14.8) Platelet Count 391 K/UL (150-450) Mean Platelet Volume 4.9 FL (6.5-10.1) Neutrophils (%) (Auto) 73.3 % (45.0-75.0) Lymphocytes (%) (Auto) 18.3 % (20.0-45.0) Monocytes (%) (Auto) 5.8 % (1.0-10.0) Eosinophils (%) (Auto) 1.8 % (0.0-3.0) Basophils (%) (Auto) 0.8 % (0.0-2.0) POC Whole Blood Glucose 115 MG/DL (74-106) Height (Feet): 5 Height (Inches): 5.00 Weight (Pounds): 144 Objective Physical Exam: Vitals: reviewed General: NAD HEENT: nc, at Neck: supple ++tracn/vent Chest: clear breath sounds bilaterally Cardiovascular: RRR, no s3, s4 Abdomen: soft, nontender, nd +gtube Extremities: no cce, normal range of motion Neuro: alert Evan Muhammad MD Oct 17, 2019 07:03
[2019-10-17] MEDS: Morphine Sulfate 2mg/ml Inj(IV/IM USE ONLY) IVP PRN (07:48)
[2019-10-17 08:00] VITALS: BP 159/77
[2019-10-17] MEDS: Lisinopril 20mg tab GT SCH ×2 (08:03→18:00)
[2019-10-17] MEDS: Nephrovite tab (Rena-Vite) ORAL SCH (08:14)
[2019-10-17] MEDS: Zinc Sulfate 220mg ORAL SCH (08:14)
[2019-10-17] MEDS: Ascorbic Acid 500mg tab ORAL SCH (08:14)
[2019-10-17] MEDS: Heparin 5000 units/ml inj SUBQ SCH ×2 (08:16→20:46)
--- NOTE | 2019-10-17 09:44 | Surgery Progress Note ---
Surgery Progress Note Subjective Symptoms: improved, tolerating diet, passing flatus Objective Last 24 Hour Vital Signs Date Time Temp Pulse Resp B/P (MAP) Pulse Ox O2 Delivery O2 Flow Rate FiO2 10/17/19 08:41 66 21 40 10/17/19 08:00 97.7 71 20 159/77 (104) 100 10/17/19 08:00 40 10/17/19 08:00 72 10/17/19 08:00 Mechanical Ventilator Mechanical Ventilator Mechanical Ventilator 10/17/19 07:30 40 10/17/19 07:24 98 10/17/19 07:14 66 21 40 40 10/17/19 05:50 98.2 10/17/19 05:20 152/73 10/17/19 05:09 58 142/65 10/17/19 04:37 65 21 40 10/17/19 04:00 40 10/17/19 04:00 Mechanical Ventilator Mechanical Ventilator Mechanical Ventilator 10/17/19 04:00 98.2 56 20 135/68 (90) 99 10/17/19 03:27 62 10/17/19 02:55 68 21 40 10/17/19 00:43 55 20 40 10/17/19 00:00 98.2 57 20 142/66 (91) 99 10/17/19 00:00 Mechanical Ventilator Mechanical Ventilator Mechanical Ventilator 10/17/19 00:00 40 10/16/19 23:33 58 10/16/19 22:36 57 20 40 10/16/19 21:09 141/68 10/16/19 21:03 58 141/68 10/16/19 20:33 59 20 40 10/16/19 20:28 58 138/69 10/16/19 20:00 Mechanical Ventilator Mechanical Ventilator Mechanical Ventilator 10/16/19 20:00 40 10/16/19 20:00 98.0 58 20 138/69 (92) 98 10/16/19 19:09 60 10/16/19 18:35 59 20 40 10/16/19 17:42 135/66 10/16/19 17:08 57 20 40 10/16/19 16:00 40 10/16/19 16:00 98.1 58 20 135/66 (89) 96 10/16/19 16:00 65 10/16/19 16:00 Mechanical Ventilator Mechanical Ventilator Mechanical Ventilator 10/16/19 14:43 63 25 40 10/16/19 14:05 98 10/16/19 13:26 140/69 10/16/19 13:22 56 140/69 10/16/19 13:13 62 23 40 10/16/19 12:03 58 18 40 10/16/19 12:00 53 10/16/19 12:00 Mechanical Ventilator Mechanical Ventilator Mechanical Ventilator 10/16/19 12:00 40 10/16/19 12:00 97.9 56 22 140/69 (92) 98 10/16/19 10:48 53 20 40 I&O Intake and Output 10/16/19 10/17/19 19:00 07:00 Intake Total 40 ml 680 ml Output Total 500 ml Balance 40 ml 180 ml Intake Free Water 200 ml Tube Feeding 40 ml 480 ml Output Urine Total 500 ml # Bowel Movements 3 3 Dressing: saturated Cardiovascular: RSR Respiratory: decreased breath sounds Abdomen: soft, non-tender, present bowel sounds Extremities: no tenderness, no cyanosis Laboratory Tests Test 10/16/19 11:54 10/16/19 16:06 10/16/19 23:01 10/17/19 03:00 POC Whole Blood Glucose 126 MG/DL (74-106) H 116 MG/DL (74-106) H Pending White Blood Count 9.7 K/UL (4.8-10.8) Red Blood Count 3.38 M/UL (4.20-5.40) L Hemoglobin 10.3 G/DL (12.0-16.0) L Hematocrit 31.4 % (37.0-47.0) L Mean Corpuscular Volume 93 FL (80-99) Mean Corpuscular Hemoglobin 30.5 PG (27.0-31.0) Mean Corpuscular Hemoglobin Concent 32.8 G/DL (32.0-36.0) Red Cell Distribution Width 15.0 % (11.6-14.8) H Platelet Count 391 K/UL (150-450) Mean Platelet Volume 4.9 FL (6.5-10.1) L Neutrophils (%) (Auto) 73.3 % (45.0-75.0) Lymphocytes (%) (Auto) 18.3 % (20.0-45.0) L Monocytes (%) (Auto) 5.8 % (1.0-10.0) Eosinophils (%) (Auto) 1.8 % (0.0-3.0) Basophils (%) (Auto) 0.8 % (0.0-2.0) Test 10/17/19 04:48 POC Whole Blood Glucose 115 MG/DL (74-106) H Plan Problems: (1) Anemia (2) Proteinuria (3) UTI (urinary tract infection) (4) ARF (acute renal failure) (5) ACS (acute coronary syndrome) (6) Respiratory failure, acute and chronic (7) HCAP (healthcare-associated pneumonia) (8) Abrasion of lip, initial encounter (9) COPD with exacerbation (10) Hypokalemia (11) Sepsis Assessment & Plan: Leukocytosis, anemia, abnormal labs. Renal insufficiency potentially dehydrated Abnormal LFTs alk phos elevated Urine noted significant bacteria likely UTI etiology Wound stable still requiring local care IV antibiotics per infectious disease Discussed with business info consultant Dr. Berkowitz air mattress turn q2h nutritional tf will follow with recs thank you CT noted pending VQ scan - noted poor study low prob PE work respiratory increasing needs sedation weaning vent settings 80% peep 10 now comfortable Hd line in receiving HD plan for left thora 09/26 cont weaning vent as tolerated improving labs improved placement d/c planning (12) Chronic respiratory failure (13) Ascites (14) Bacteremia (15) Hypernatremia (16) Pleural effusion (17) Pacemaker (18) Aortic dissection, thoracic (19) Tracheostomy in place Assessment & Plan: trach stable no bleeding currently likely tongue etiology of mild oozing currently hemostatic without trauma (20) Feeding by G-tube Assessment & Plan: okay to resume tube feeds via g tube patent and functional dressings okay DAILY ESTIMATED NEEDS: Needs based on Pulmonary, wound 49kg 30-35 kcals/kg 8432-1808 total kcals 1.25-2 g protein/kg 61-98 g total protein Fluid per MD NUTRITION DIAGNOSIS: * Swallowing difficulty R/T dysphagia, respiratory status as evidenced by vent dep via T-collar, GT Dep. (CURRENT TF: Nepro @45ml/hr x 24 hrs) ENTERAL NUTRITION RECOMMENDATIONS: Nepro @ 40ml/hr x 24 hrs to provide 960ml, 1728kcal, 78g prot, 698ml free water * Rec LOWER current rate to 40ml/hr for 24 hrs run. * Water flush of 100ml q 6 hrs per orders * HOB over 30 degrees ADDITIONAL RECOMMENDATIONS: * Per SNF: HT=63", OS=229vbq -> rec calibrated bedscale wt * Pt on Nepro RUBBER CURER, possible h/o electrolyte imbalance -> monitor lytes closely (K low at this time) * ASSEMBLY AND PACKING SUPERVISOR eval for oral grat if appropriate * F/up w/ WC eval-> add FRANKLIN in 4oz H20 BID via GT (21) JAVIER (acute kidney injury) (22) Elevated alkaline phosphatase level Assessment & Plan: noted on labs trend US ordered will follow with recs thank you (23) Acute encephalopathy (24) GT CLOGGED (25) Sacral decubitus ulcer, stage IV Assessment & Plan: Pt presented on admission with Full thickness stage 4 Sacral Pressure injury which extends into R gluteal cheek. Base of wound is granular with bone exposure at base of sacrococcygeal.(L)10.5cm x (W06.5cm x (D) 2.8cm , undermining 11-3 by 3.6cm @12 o'clock. small amt serosanguineous exudate noted . [place] epithelial along edges bordered by darker skin tone without erythema. Resolving Pressure injury L ischium. Base of wound is 95% pink epithelial ,5% noni at center base of wound. No exudate noted. Both heels are boggy with non-Blanching erythema. Tx.plan: Cleanse Sacral wound with Saline. Loosely pack with Hydrogel impregnated Kerlix. Apply Moisture Barrier Periwound. Cover with Optifoam drsg Daily and prn. Apply Moisture Barrier paste to L Ischium. Cover with Optifoam drsg. Changee very 3 days and prn. Apply Cavilon Skin Barrier to both heels. Cover each heel with Optifoam drsgs. Change every 7 days and prn. Reposition at least every 2hours or as tolerated. Off-load heels with pillow. APM/MAXWELL Mattress overlay. Sacral wound resolving. Wound is smaller in size with less depth and undermining (L)8.5cm x (W)5cm x (D)1.3cm, undermining clockwise 11-3 by 2.1cm @ 12o'clock. Base of wound is pink and moist, small area of bone exposure at base. Small amt. seropurulent exudate noted. No odor noted. Periwound without evidence of further skin breakdown noted. Wound Tx. are effective and continued as ordered. Al wound prevention protocols continued as care-planned. Tx.Plan:Cleanse sacral wound with Saline. Loosely pack with Hydrogel impregnated kerlix. Apply Moisture Barrier Paste periwound. Cover with Optifoam drsg Daily and prn. Apply Cavilon Skin Barrier to both heels and malleoli. Cover eachsite with Optifoam drsgs. Change every 7 days and prn. Reposition at least every 2hours or as tolerated. Off-load heels with pillow. APM/Maxwell Mattress overlay. Lane Saavedra Oct 17, 2019 09:44
[2019-10-17] MEDS ORDERED: NS 275ml ONE (10:20)
[2019-10-17 12:00] VITALS: BP 145/62
--- NOTE | 2019-10-17 12:35 | Infectious Diseases Prog Note ---
Assessment/Plan 49yo F with: Fever, recurrent; SP Leukocytosis, recurrent; now resolved- r/o new infection -10/14 Bcx NTD Acute hypoxic resp failure: Now on vent, worsening, FiO2 100% > 80% 09/27 > 60% >40% 10/08 >30% 10/09 >40% 10/14 Pneumonia, COVID19 neg x3 - MDR PsA pneumonia,s pr x 10/14 CXR: Increased right pleural fluid and parenchymal disease, since previous exam of 10/09/2019. Stable pleural and parenchymal disease on the left sp cx GNR #1, #2 10/07 CXR: Bilateral infiltrates versus edema, left greater than right pleural effusions are again demonstrated, unchanged. There is slightly better inspiration currently. 09/29 CXR: Bilateral edema versus infiltrates appears slightly worse than on the prior study. There is probably some pleural fluid on the left. 09/26 S/P thoracentesis, 900cc removed, only 67 WBC in fluid analysis, unlikely empyema 09/26 CXR: Worsening R perihilar opacity 09/26 BCx Neg 09/24 CXR: Previously demonstrated right lateral basilar lucency is no longer evident, was presumably a skin fold artifact. Bilateral infiltrates and left pleural effusion are probably unchanged allowing for slight differences in technique. 09/22 Resp cx + MDR PsA (S-gent; I-colistin; R-levofloxacin, Zosyn, angelo) 09/22 BCx NTD 09/22 CXR: worsening BL pna 09/22 UA w/ persistent pyuria, now on HD, UCx +VRE, most likely colonizer as improving wo tx for this 09/19 V/Q scan, low probability of PE 09/18 Rapid COVID PCR neg 09/18 CT chest: Markedly suboptimal examination due to lack of IV contrast material. Bilateral pleural effusions, right greater than left, with bilateral lower lobe consolidation or volume loss. Ground glass densities in the upper lobes bilaterally. This is not specific. Tracheostomy. Increased superior mediastinal density. Stability of adenopathy cannot be excluded. Atherosclerotic change. Gastrostomy. Ascites. Left renal stent with left hydronephrosis and renal atrophy. 09/17 Chest US: Trace right and small left pleural effusions. No safe window identified for bedside thoracentesis. Note that the majority of the left pleural effusion is subpulmonic. 09/16 CXR: Worsening of right lung infiltrates and right effusion. V. duplex: NO DVT D-dimer elevated 09/15 Rapid COVID PCR neg 09/15 Sp cx ESBL P. mirablis 09/14 CXR: Bilateral airspace opacities, preferentially involving the right lung, consistent with multifocal infiltrate. Trace bilateral pleural effusions. No pneumothorax. Rapid COVID PCR neg Urine legionella neg 09/16 GPC bacteremia, real vs contaminant; does have hx of infected PPM- 09/14 Bcx 03/19 S. epidermis; 09/15, , Bcx Neg 2d echo: no vegetations seen UTI, recurrent 09/14 u/a wbc tnct, nit neg, leuk +3; ucx >100k MDR P. stuarti (S Ceftriaxone, Meropenem) 09/22 UA w/ ongoing pyuria, unchanged 10/07 u/a wbc tnct, nit neg, leuk ; ucx >100k VRE 10/14 u/a wbc tnct; ucx >100k ESBL P. stuarti (S ertapenem, aztreonam) Unstageable sacral ulceration JAVIER on CKD --> now on HD Renal US: Limited exam due to abdominal ascites and shadowing from bowel gas. CT recommended for more sensitive evaluation. Moderate right hydronephrosis. Increased renal parenchymal echogenicity suggesting intrinsic/ medical renal disease. Question indwelling left ureteral stent versus artifact. Bladder not visualized. 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 epi-11/2018, sp > 6weeks IV vancomycin 11/27 SP ABBIE: no evidence for vegetation on any of the valves 11/26/18 SP PPM removal: OR findings:The fibrous capsule enclosing the generator was then opened and there was a [id number] amount of yellowish fluid drainage. The generator was then removed.Atrial and ventricular leads were detached. The necrotic tissue of the pocket was then removed and the pocket was flushed with an antibiotic solution. Capsule, wound tissue and lead tip cx: Neg 2d echo: no vegetation seen US chest: 4.6 x 3.4 x 0.9 cm hypoechoic/anechoic area overlying left chest pacemaker power pack. This could represent either a discrete fluid collection or a focal area of very edematous tissue. Infected fluid pocket also possible. 10/6 Bcx 3/4 S. epi; 11/20 Bcx neg; 11/24 Bcx Neg; 11/27 Bcx Neg Hx of PNA 11/2019? sp cx PsA (arnett S), ABC (I Ceftriaxone; otherwise negative) Sp cx MRSA, ABC (I Ceftriaxone; otherwise S) PMH: Afib HTN Dysphagia sp GT Aortic dissection s/p repair 2017, S/p PPM Parkinson's Disease Schizophrenia Anxiety COPD Chronic resp failure s/p trach Hx of tracheal bleeding [place] resident ([facility]) Plan: cont to monitor off abx -ucx and sp cx potentially colonizers as fever and leukocytosis resolved on its own. Will resume abx only if recurrent fevers, leukocytosis and/or increased lung infiltrates 10/14 SP Daptomycin #5 10/03 SP Zerbaxa #6, gent #7 for MDR PsA pna 09/29 SP vanco #15 for S.epi in BCx 09/27 SP angelo #13 09/16 SP Cefepime #3, Levaquin #3 Monitor CBC/CMP, temperatures trach/ peg care Aspiration precautions f/u repeat cultures CXr D/w RN Thank you for this consultation. Will continue to follow along with you. Subjective Allergies: Coded Allergies: No Known Allergies (Unverified , 10/10/17) afebrile >48hrs no leukocytosis Bcx NTD Objective Last 24 Hour Vital Signs Date Time Temp Pulse Resp B/P (MAP) Pulse Ox O2 Delivery O2 Flow Rate FiO2 10/17/19 11:02 62 20 40 10/17/19 08:41 66 21 40 10/17/19 08:00 97.7 71 20 159/77 (104) 100 10/17/19 08:00 40 10/17/19 08:00 72 10/17/19 08:00 Mechanical Ventilator Mechanical Ventilator Mechanical Ventilator 10/17/19 07:30 40 10/17/19 07:24 98 10/17/19 07:14 66 21 40 40 10/17/19 05:50 98.2 10/17/19 05:20 152/73 10/17/19 05:09 58 142/65 10/17/19 04:37 65 21 40 10/17/19 04:00 40 10/17/19 04:00 Mechanical Ventilator Mechanical Ventilator Mechanical Ventilator 10/17/19 04:00 98.2 56 20 135/68 (90) 99 10/17/19 03:27 62 10/17/19 02:55 68 21 40 10/17/19 00:43 55 20 40 10/17/19 00:00 98.2 57 20 142/66 (91) 99 10/17/19 00:00 Mechanical Ventilator Mechanical Ventilator Mechanical Ventilator 10/17/19 00:00 40 10/16/19 23:33 58 10/16/19 22:36 57 20 40 10/16/19 21:09 141/68 10/16/19 21:03 58 141/68 10/16/19 20:33 59 20 40 10/16/19 20:28 58 138/69 10/16/19 20:00 Mechanical Ventilator Mechanical Ventilator Mechanical Ventilator 10/16/19 20:00 40 10/16/19 20:00 98.0 58 20 138/69 (92) 98 10/16/19 19:09 60 10/16/19 18:35 59 20 40 10/16/19 17:42 135/66 10/16/19 17:08 57 20 40 10/16/19 16:00 40 10/16/19 16:00 98.1 58 20 135/66 (89) 96 10/16/19 16:00 65 10/16/19 16:00 Mechanical Ventilator Mechanical Ventilator Mechanical Ventilator 10/16/19 14:43 63 25 40 10/16/19 14:05 98 10/16/19 13:26 140/69 10/16/19 13:22 56 140/69 10/16/19 13:13 62 23 40 Height (Feet): 5 Height (Inches): 5.00 Weight (Pounds): 144 Gen: no distress Cardiovascular: RrR, S1 S2 normal Respiratory: decreased breath sounds Abdomen: soft, non-tender, present bowel sounds Extremities: no edema, no tenderness Microbiology Date/Time Source Procedure Growth Status 10/15/19 14:00 Blood Blood Culture - Preliminary NO GROWTH AFTER 24 HOURS Resulted 10/15/19 13:55 Blood Blood Culture - Preliminary NO GROWTH AFTER 24 HOURS Resulted 10/15/19 15:20 Sputum Gram Stain - Final Resulted 10/15/19 15:20 Sputum Culture - Preliminary Gram Negative Bacillus 1 Gram Negative Bacillus 2 Resulted 10/15/19 13:20 Urine,Clean Catch Urine Culture - Final Providencia Stuartii Complete Laboratory Tests Test 10/16/19 16:06 10/16/19 23:01 10/17/19 03:00 10/17/19 04:48 POC Whole Blood Glucose 116 MG/DL (74-106) H Pending 115 MG/DL (74-106) H White Blood Count 9.7 K/UL (4.8-10.8) Red Blood Count 3.38 M/UL (4.20-5.40) L Hemoglobin 10.3 G/DL (12.0-16.0) L Hematocrit 31.4 % (37.0-47.0) L Mean Corpuscular Volume 93 FL (80-99) Mean Corpuscular Hemoglobin 30.5 PG (27.0-31.0) Mean Corpuscular Hemoglobin Concent 32.8 G/DL (32.0-36.0) Red Cell Distribution Width 15.0 % (11.6-14.8) H Platelet Count 391 K/UL (150-450) Mean Platelet Volume 4.9 FL (6.5-10.1) L Neutrophils (%) (Auto) 73.3 % (45.0-75.0) Lymphocytes (%) (Auto) 18.3 % (20.0-45.0) L Monocytes (%) (Auto) 5.8 % (1.0-10.0) Eosinophils (%) (Auto) 1.8 % (0.0-3.0) Basophils (%) (Auto) 0.8 % (0.0-2.0) Test 10/17/19 12:17 POC Whole Blood Glucose 116 MG/DL (74-106) H Current Medications Medications (Trade) Dose Ordered Sig/Penny Route PRN Reason Start Time Stop Time Status Last Admin Dose Admin Acetaminophen (Tylenol) 325 mg Q6H PRN GT Temp >100.5 10/11/19 04:45 10/23/19 10:44 10/17/19 05:20 Ascorbic Acid (Vitamin C) 500 mg DAILY ORAL 10/11/19 09:00 11/05/19 08:59 10/17/19 08:14 Chlorhexidine Gluconate (Ling-Hex 2%) 1 applic DAILY@1999 TOPIC 10/11/19 20:00 12/22/19 19:59 10/16/19 20:30 Clonidine HCl (Catapres TTS-3) 1 patch QWEEK TDERMAL 10/14/19 12:00 01/12/20 11:59 10/14/19 11:51 Dextrose (Dextrose 50%) 25 ml Q30M PRN IV Hypoglycemia 10/11/19 04:30 01/03/20 18:29 Dextrose (Dextrose 50%) 50 ml Q30M PRN IV Hypoglycemia 10/11/19 04:30 01/03/20 18:29 Diltiazem HCl (Cardizem Tab) 90 mg Q8HR GT 10/16/19 14:00 11/09/19 11:59 Docusate Sodium (Colace) 100 mg Q8HR GT 10/14/19 14:01 11/13/19 14:00 10/17/19 05:20 Epoetin Gelacio (Epoetin Gelacio(ESRD on dialysis)) 10,000 unit MON- SUBQ 10/14/19 21:00 01/12/20 20:59 10/16/19 21:09 Haloperidol Lactate (Haldol) 5 mg Q6H PRN IM Agitation 10/11/19 05:00 11/22/19 10:59 10/17/19 10:48 Heparin Sodium (Porcine) (Heparin 5000 units/ml) 5,000 units EVERY 12 HOURS SUBQ 10/11/19 09:00 10/30/19 08:59 10/17/19 08:16 Insulin Aspart (NovoLOG) Q6HR SUBQ 10/11/19 06:00 01/03/20 20:59 Lansoprazole (Prevacid) 30 mg Q12HR GT 10/11/19 09:00 10/27/19 20:59 10/17/19 08:14 Lisinopril (PriniviL) 20 mg BID GT 10/11/19 09:00 11/08/19 17:59 10/16/19 17:42 Metoclopramide HCl (Reglan) 5 mg EVERY 6 HOURS GT 10/11/19 06:00 11/08/19 11:59 10/17/19 05:20 Metoprolol Tartrate (Lopressor) 25 mg Q12HR GT 10/11/19 09:00 01/07/20 20:59 10/16/19 08:22 Minoxidil (Loniten) 2.5 mg Q8HR ORAL 10/11/19 06:00 01/08/20 13:59 10/17/19 05:20 Morphine Sulfate (Morphine Sulfate) 2 mg Q6H PRN IVP For Pain 10/16/19 09:45 10/23/19 09:44 10/17/19 07:48 Polyethylene Glycol (Miralax) 17 gm BEDTIME ORAL 10/11/19 21:00 10/31/19 20:59 10/16/19 20:30 Risperidone (RisperDAL) 2 mg BEDTIME ORAL 10/11/19 21:00 11/19/19 20:59 10/16/19 20:30 Sorbitol (sorbitoL) 30 ml EVERY 6 HOURS PRN GT Constipation 10/11/19 06:00 10/29/19 17:59 Vitamin B Complex/ Vit C/Folic Acid (Nephrovite) 1 tab DAILY ORAL 10/11/19 09:00 11/05/19 08:59 10/17/19 08:14 Zinc Sulfate (Zinc Sulfate) 220 mg DAILY ORAL 10/11/19 09:00 10/21/19 08:59 10/17/19 08:14 Doreen Nino M.D. Oct 17, 2019 12:34
[2019-10-17 16:00] VITALS: BP 155/78
--- NOTE | 2019-10-17 19:32 | General Progress Note ---
Assessment/Plan Status: stable, other - Mood has improved he is able to smile there is no continuous tearing overall she looks better today energy looking the last several days continue with the same management Status Narrative Yesterday patient was tried to be weaned from the respirator as you could tolerate for a few hours the BiPAP machine attempt today after 30 minutes patient would not tolerate taking rest patient condition remains precarious repeat laboratory tests will be done in the a.m. including chest x-ray LUCAS DONG MD Subjective Constitutional: Reports: fever - No, malaise Cardiovascular: Reports: no symptoms Respiratory: Reports: other - Patient condition deteriorated today. She required respiratory assistance increase in FiO2 to 100% she went through respiratory distress with fever tachycardia and shortness of breath patient chest x-ray that was done yesterday revealed the patient still have bilateral infiltrate and bilateral pleural effusion with infiltrate on the right increasing infiltrate on the left remainsEffusion on the right pulmonary increased patient currently is off antibiotics and being followed conservatively by fever CBC chest x-ray no antibiotic intervention to take place this the patient had a normal chest x-ray fever and leukocytosis she is currently being stable and comfortable without distress echocardiogram was advised which was MDR Gastrointestinal/Abdominal: Reports: no symptoms Genitourinary: Reports: no symptoms Neurologic/Psychiatric: Reports: anxiety, depressed, weakness Allergies: Coded Allergies: No Known Allergies (Unverified , 10/10/17) Objective Last 24 Hour Vital Signs Date Time Temp Pulse Resp B/P (MAP) Pulse Ox O2 Delivery O2 Flow Rate FiO2 10/17/19 18:57 54 20 40 10/17/19 16:00 97.9 60 20 155/78 (103) 100 10/17/19 16:00 53 10/17/19 16:00 Mechanical Ventilator Mechanical Ventilator Mechanical Ventilator 10/17/19 16:00 40 10/17/19 12:00 40 10/17/19 12:00 Mechanical Ventilator Mechanical Ventilator Mechanical Ventilator 10/17/19 12:00 97.9 62 20 145/62 (89) 100 10/17/19 11:58 62 10/17/19 11:02 62 20 40 10/17/19 08:41 66 21 40 10/17/19 08:00 97.7 71 20 159/77 (104) 100 10/17/19 08:00 40 10/17/19 08:00 72 10/17/19 08:00 Mechanical Ventilator Mechanical Ventilator Mechanical Ventilator 10/17/19 07:30 40 10/17/19 07:24 98 10/17/19 07:14 66 21 40 40 10/17/19 05:50 98.2 10/17/19 05:20 152/73 10/17/19 05:09 58 142/65 10/17/19 04:37 65 21 40 10/17/19 04:00 40 10/17/19 04:00 Mechanical Ventilator Mechanical Ventilator Mechanical Ventilator 10/17/19 04:00 98.2 56 20 135/68 (90) 99 10/17/19 03:27 62 10/17/19 02:55 68 21 40 10/17/19 00:43 55 20 40 10/17/19 00:00 98.2 57 20 142/66 (91) 99 10/17/19 00:00 Mechanical Ventilator Mechanical Ventilator Mechanical Ventilator 10/17/19 00:00 40 10/16/19 23:33 58 10/16/19 22:36 57 20 40 10/16/19 21:09 141/68 10/16/19 21:03 58 141/68 10/16/19 20:33 59 20 40 10/16/19 20:28 58 138/69 10/16/19 20:00 Mechanical Ventilator Mechanical Ventilator Mechanical Ventilator 10/16/19 20:00 40 10/16/19 20:00 98.0 58 20 138/69 (92) 98 Intake and Output 10/16/19 10/17/19 19:00 07:00 Intake Total 40 ml 680 ml Output Total 500 ml Balance 40 ml 180 ml Intake Free Water 200 ml Tube Feeding 40 ml 480 ml Output Urine Total 500 ml # Bowel Movements 3 3 Laboratory Tests 10/16/19 23:01: POC Whole Blood Glucose [Pending] 10/17/19 03:00: White Blood Count 9.7, Red Blood Count 3.38L, Hemoglobin 10.3L, Hematocrit 31.4L , Mean Corpuscular Volume 93, Mean Corpuscular Hemoglobin 30.5, Mean Corpuscular Hemoglobin Concent 32.8, Red Cell Distribution Width 15.0H, Platelet Count 391, Mean Platelet Volume 4.9L, Neutrophils (%) (Auto) 73.3, Lymphocytes (%) (Auto) 18.3L, Monocytes (%) (Auto) 5.8, Eosinophils (%) (Auto) 1.8, Basophils (%) (Auto) 0.8 10/17/19 04:48: POC Whole Blood Glucose 115H 10/17/19 12:17: POC Whole Blood Glucose 116H Height (Feet): 5 Height (Inches): 5.00 Weight (Pounds): 144 General Appearance: alert, lethargic, cachetic, thin EENT: normal ENT inspection Neck: supple Cardiovascular: normal rate, regular rhythm, no gallop/murmur, no JVD Respiratory/Chest: decreased breath sounds, rhonchi - bilaterally Abdomen: non tender, soft, no organomegaly, no mass, other - On the right side on the left Extremities: non-tender, other - No cyanosis clubbing or edema with diffuse bilateral muscle wasting of both lower extremities Skin: warm/dry Lucas Dong MD Oct 17, 2019 19:32
--- NOTE | 2019-10-17 19:33 | Nephrology Progress Note ---
Assessment/Plan Problem List: (1) JAVIER (acute kidney injury) (2) Renal failure (ARF), acute on chronic (3) Dehydration (4) Electrolyte imbalance (5) Anemia (6) Respiratory failure, acute and chronic (7) COPD with exacerbation Assessment Patient is presented with sepsis and pneumonia and UTI Patient has acute renal failure, possible underlying chronic kidney failure Severe anemia Electrolyte imbalances: Hyponatremia, hypo-kalemia Chronic respiratory failure, COPD exacerbation Plan October 16: Late note entry due to system problem at the [facility] today.Patient due for dialysis today. Dialysis nurse informed that due to few emergencies if she can be done tomorrow. No chemistry panel for today." We will order labs on dialysis tomorrow. October 15: Last dialysis October 13. Labs were reviewed. Urine output very low. Will dialyze and ultrafiltrate tomorrow. Per consultants. October 14: Dialyzed yesterday. Labs reviewed. Medication list reviewed. Continue per consultants. October 13: Patient seen on dialysis. Tolerating well. Will check labs tomorrow. October 12: Blood pressure stable. Labs reviewed. BUN rising. Remains oliguric. Dialysis tomorrow. October 11: Blood pressure is stable. Labs reviewed. Continue as is. Dialysis as needed October 10: Blood pressure medication adjusted. Will check lab tomorrow. Dialysis as needed. Urine output remains low. October 09: Lab reviewed. Remains oliguric. Will give trial of Zaroxolyn. Continue per consultants. Adjust blood pressure medication. Will add Zaroxolyn and increased dose of Cardizem and add clonidine patch for better BP control October 08: Labs reviewed. Patient oliguric. Blood pressure elevated, BP medication adjusted. Recheck lab tomorrow. Dialysis and ultrafiltration as needed. October 07: Labs reviewed. Patient was dialyzed yesterday. 3000 mL fluid was removed. Patient appears to need periodic (twice a week minimum) dialysis for ultrafiltration. Continue to monitor renal parameters. Continue per consultants. October 06: Labs reviewed. Discussed with pulmonary. Will attempt dialysis and ultrafiltration. Continue per consultants. October 05: Lab reviewed. Serum creatinine rising. Blood pressure stabilized. Will recheck lab tomorrow. Dialysis as needed. Will increase lisinopril to 10 mg twice a day. October 04: Lab reviewed. Blood pressure medication adjusted since the patient is hypotensive. Serum creatinine rising. Recheck labs tomorrow. Dialysis as needed. Discussed with RN. October 03: Lab reviewed. Zestril added to BP medication. 1 dose of Seroquel ordered for agitation. Continue to monitor renal parameters. Continue per consultants. October 02: Lab reviewed. Potassium supplement IV given. 3% saline 250 cc ordered. Responded well to Zaroxolyn yesterday. Will continue to monitor electrolytes and renal parameters. Will increase minoxidil to 2.5 mg every 6 hours. October 01: Labs reviewed. Potassium supplement given. Last dialysis September 29. Serum creatinine rising gradually. Urine output very low. Patient appears to continue to need dialysis at least twice a week. Blood pressure still running high I will switch the hydralazine to minoxidil. We will give 1 dose of Zaroxolyn 10 mg today. Will check renal parameters tomorrow. September 30: Patient dialyzed yesterday. 3 L removed. Labs reviewed. Potassium supplement given. Continue per consultants. It appears that the patient required dialysis 2-3 times a week. September 29: Lab reviewed. Chest x-ray result noted. Continues to have pulmonary congestion. Urine output low. Will attempt dialysis again today with ultrafiltration. September 28: Lab reviewed. ABG reviewed. Potassium supplement given. No dialysis at this point. Will eval patient status and renal parameters daily. September 27: Lab reviewed. Last dialysis September 25. Continue to monitor renal parameters. Hemodialysis as needed. September 26: Lab reviewed. Dialyzed yesterday. Potassium supplement given. Medication list reviewed. Will observe renal parameters and arrange for dialysis as needed. September 25: Lab reviewed. Currently on hemodialysis. Tolerating well. Stable from renal standpoint of view. Blood pressure medication adjusted by increasing hydralazine. September 24: Lab reviewed. ABG reviewed. Both lab and ABG much improved. Patient was dialyzed yesterday. We will attempt dialysis tomorrow again. Will adjust that blood pressure medication dosages. September 23: Lab reviewed. ABG reviewed. Patient acidotic. IV bicarb 1 dose is given. Patient has dialysis catheter. Will order dialysis for ultrafiltration and correction of acid-base. Discussed with ERASMO Mohr. September 22: Labs reviewed. Potassium high. Kayexalate and Reglan given. Will discuss with the consultants regarding initiation of dialysis. September 21: Patient is being sedated. Labs reviewed. Potassium supplement discontinued. GFR 20. Continue per current treatment plan. Dialysis and ultrafiltration is a consideration. September 20: Patient periodically agitated. Labs reviewed. Creatinine 2.4. Medication reviewed. Continue per consultants. Calculated creatinine clearance 21. May need isolated ultrafiltration on dialysis. Will discuss with PMD. Meanwhile hemoglobin is lower, defer transfusion to PMD. September 19: DC IV fluid. Zaroxolyn via GT tube. Potassium supplement. Attempt to diurese. Chest CT as bilateral pleural effusion. If diuresis unsuccessful, will consider dialysis and ultrafiltration. September 18: Potassium supplement IV given. Hemoglobin stable. Patient remains full code. Continue per consultants. Previously: Potassium supplement IV Slow IV hydration Epogen subcu Adjust blood pressure medication IV fluid, rate adjusted Norman catheter, intake and output Monitor renal parameters Avoid nephrotoxic's Antibiotics Per orders 2D echocardiogram Kidney ultrasound Subjective ROS Limited/Unobtainable: Yes Objective Objective Last 24 Hour Vital Signs Date Time Temp Pulse Resp B/P (MAP) Pulse Ox O2 Delivery O2 Flow Rate FiO2 10/17/19 18:57 54 20 40 10/17/19 16:00 97.9 60 20 155/78 (103) 100 10/17/19 16:00 53 10/17/19 16:00 Mechanical Ventilator Mechanical Ventilator Mechanical Ventilator 10/17/19 16:00 40 10/17/19 12:00 40 10/17/19 12:00 Mechanical Ventilator Mechanical Ventilator Mechanical Ventilator 10/17/19 12:00 97.9 62 20 145/62 (89) 100 10/17/19 11:58 62 10/17/19 11:02 62 20 40 10/17/19 08:41 66 21 40 10/17/19 08:00 97.7 71 20 159/77 (104) 100 10/17/19 08:00 40 10/17/19 08:00 72 10/17/19 08:00 Mechanical Ventilator Mechanical Ventilator Mechanical Ventilator 10/17/19 07:30 40 10/17/19 07:24 98 10/17/19 07:14 66 21 40 40 10/17/19 05:50 98.2 10/17/19 05:20 152/73 10/17/19 05:09 58 142/65 10/17/19 04:37 65 21 40 10/17/19 04:00 40 10/17/19 04:00 Mechanical Ventilator Mechanical Ventilator Mechanical Ventilator 10/17/19 04:00 98.2 56 20 135/68 (90) 99 10/17/19 03:27 62 10/17/19 02:55 68 21 40 10/17/19 00:43 55 20 40 10/17/19 00:00 98.2 57 20 142/66 (91) 99 10/17/19 00:00 Mechanical Ventilator Mechanical Ventilator Mechanical Ventilator 10/17/19 00:00 40 10/16/19 23:33 58 10/16/19 22:36 57 20 40 10/16/19 21:09 141/68 10/16/19 21:03 58 141/68 10/16/19 20:33 59 20 40 10/16/19 20:28 58 138/69 10/16/19 20:00 Mechanical Ventilator Mechanical Ventilator Mechanical Ventilator 10/16/19 20:00 40 10/16/19 20:00 98.0 58 20 138/69 (92) 98 Intake and Output 10/16/19 10/17/19 19:00 07:00 Intake Total 40 ml 680 ml Output Total 500 ml Balance 40 ml 180 ml Intake Free Water 200 ml Tube Feeding 40 ml 480 ml Output Urine Total 500 ml # Bowel Movements 3 3 Laboratory Tests 10/16/19 23:01: POC Whole Blood Glucose [Pending] 10/17/19 03:00: White Blood Count 9.7, Red Blood Count 3.38L, Hemoglobin 10.3L, Hematocrit 31.4L , Mean Corpuscular Volume 93, Mean Corpuscular Hemoglobin 30.5, Mean Corpuscular Hemoglobin Concent 32.8, Red Cell Distribution Width 15.0H, Platelet Count 391, Mean Platelet Volume 4.9L, Neutrophils (%) (Auto) 73.3, Lymphocytes (%) (Auto) 18.3L, Monocytes (%) (Auto) 5.8, Eosinophils (%) (Auto) 1.8, Basophils (%) (Auto) 0.8 10/17/19 04:48: POC Whole Blood Glucose 115H 10/17/19 12:17: POC Whole Blood Glucose 116H Height (Feet): 5 Height (Inches): 5.00 Weight (Pounds): 144 General Appearance: no apparent distress EENT: other Cardiovascular: bradycardia Respiratory/Chest: decreased breath sounds Abdomen: distended Objective No change Johnny Houston MD Oct 17, 2019 19:33
[2019-10-17 20:00] VITALS: BP 165/68
[2019-10-17] MEDS: Miralax 17gm pkt ORAL SCH (20:45)
[2019-10-17] MEDS: Dyna-Hex 2% Top Sol 2oz TOPIC SCH (20:45)
--- NOTE | 2019-10-17 21:50 | Pulmonology Progress Note ---
Raffy Castroet FIRE MANAGEMENT SPECIALIST 10/17/19 2150: Subjective ROS Limited/Unobtainable: Yes Allergies: Coded Allergies: No Known Allergies (Unverified , 10/10/17) Subjective in [place]UL[place] on vent AC with FiO2 40% no signs of resp distress on current settings afebrile, last fevers 10/13 leukocytosis with WBC 16.5 on 10/14 - resolved CXR 10/14 -> increased right pleural fluid and parenchymal disease, tolerated CPAP trials x 4 hrs 10/14, then desaturated and placed back to AC vent this am tolerated CPAP only for 30 min Objective Last 24 Hour Vital Signs Date Time Temp Pulse Resp B/P (MAP) Pulse Ox O2 Delivery O2 Flow Rate FiO2 10/17/19 20:50 54 20 40 10/17/19 20:00 Mechanical Ventilator Mechanical Ventilator Mechanical Ventilator 10/17/19 20:00 98.3 53 20 165/68 (100) 100 10/17/19 20:00 40 10/17/19 19:36 58 10/17/19 18:57 54 20 40 10/17/19 16:00 97.9 60 20 155/78 (103) 100 10/17/19 16:00 53 10/17/19 16:00 Mechanical Ventilator Mechanical Ventilator Mechanical Ventilator 10/17/19 16:00 40 10/17/19 12:00 40 10/17/19 12:00 Mechanical Ventilator Mechanical Ventilator Mechanical Ventilator 10/17/19 12:00 97.9 62 20 145/62 (89) 100 10/17/19 11:58 62 10/17/19 11:02 62 20 40 10/17/19 08:41 66 21 40 10/17/19 08:00 97.7 71 20 159/77 (104) 100 10/17/19 08:00 40 10/17/19 08:00 72 10/17/19 08:00 Mechanical Ventilator Mechanical Ventilator Mechanical Ventilator 10/17/19 07:30 40 10/17/19 07:24 98 10/17/19 07:14 66 21 40 40 10/17/19 05:50 98.2 10/17/19 05:20 152/73 10/17/19 05:09 58 142/65 10/17/19 04:37 65 21 40 10/17/19 04:00 40 10/17/19 04:00 Mechanical Ventilator Mechanical Ventilator Mechanical Ventilator 10/17/19 04:00 98.2 56 20 135/68 (90) 99 10/17/19 03:27 62 10/17/19 02:55 68 21 40 10/17/19 00:43 55 20 40 10/17/19 00:00 98.2 57 20 142/66 (91) 99 10/17/19 00:00 Mechanical Ventilator Mechanical Ventilator Mechanical Ventilator 10/17/19 00:00 40 10/16/19 23:33 58 10/16/19 22:36 57 20 40 Intake and Output 10/16/19 10/17/19 19:00 07:00 Intake Total 40 ml 680 ml Output Total 500 ml Balance 40 ml 180 ml Intake Free Water 200 ml Tube Feeding 40 ml 480 ml Output Urine Total 500 ml # Bowel Movements 3 3 Objective General Appearance: no apparent distress, bedridden middle age chronically ill looking female on vent AC 500-20- 40%, PEEP 5, awake, calm Lines, tubes and drains: left jugular HD catheter HEENT: normocephalic, atraumatic, anicteric, trach - Shiley #7 cuffed XLT, secretions small amount, yellow color , thick consistency Respiratory/Chest: no accessory muscle use, few isolated rhonchi Cardiovascular/Chest: normal rate, regular rhythm - SR on tele Abdomen: normal bowel sounds, non tender, soft, G tube Genitourinary/Rectal: Norman Extremities: no edema Skin Exam: warm/dry, multiple tattoos all over the body Neurologic: awake, no gross focal Musculoskeletal: atrophy - BLE Microbiology Date/Time Source Procedure Growth Status 10/15/19 14:00 Blood Blood Culture - Preliminary NO GROWTH AFTER 24 HOURS Resulted 10/15/19 13:55 Blood Blood Culture - Preliminary NO GROWTH AFTER 24 HOURS Resulted 10/15/19 15:20 Sputum Gram Stain - Final Resulted 10/15/19 15:20 Sputum Culture - Preliminary Gram Negative Bacillus 1 Gram Negative Bacillus 2 Resulted 10/15/19 13:20 Urine,Clean Catch Urine Culture - Final Providencia Stuartii Complete Laboratory Tests 10/16/19 23:01: POC Whole Blood Glucose [Pending] 10/17/19 03:00: White Blood Count 9.7, Red Blood Count 3.38L, Hemoglobin 10.3L, Hematocrit 31.4L , Mean Corpuscular Volume 93, Mean Corpuscular Hemoglobin 30.5, Mean Corpuscular Hemoglobin Concent 32.8, Red Cell Distribution Width 15.0H, Platelet Count 391, Mean Platelet Volume 4.9L, Neutrophils (%) (Auto) 73.3, Lymphocytes (%) (Auto) 18.3L, Monocytes (%) (Auto) 5.8, Eosinophils (%) (Auto) 1.8, Basophils (%) (Auto) 0.8 10/17/19 04:48: POC Whole Blood Glucose 115H 10/17/19 12:17: POC Whole Blood Glucose 116H Current Medications Medications (Trade) Dose Ordered Sig/Penny Route PRN Reason Start Time Stop Time Status Last Admin Dose Admin Acetaminophen (Tylenol) 325 mg Q4H PRN GT Mild Pain (Pain Scale 1-3) 10/17/19 18:45 11/16/19 18:44 Acetaminophen (Tylenol) 325 mg Q6H PRN GT Temp >100.5 10/11/19 04:45 10/23/19 10:44 10/17/19 12:31 Ascorbic Acid (Vitamin C) 500 mg DAILY ORAL 10/11/19 09:00 11/05/19 08:59 10/17/19 08:14 Chlorhexidine Gluconate (Ling-Hex 2%) 1 applic DAILY@2000 TOPIC 10/11/19 20:00 12/22/19 19:59 10/17/19 20:45 Clonidine HCl (Catapres TTS-3) 1 patch QWEEK TDERMAL 10/14/19 12:00 01/12/20 11:59 10/14/19 11:51 Dextrose (Dextrose 50%) 25 ml Q30M PRN IV Hypoglycemia 10/11/19 04:30 01/03/20 18:29 Dextrose (Dextrose 50%) 50 ml Q30M PRN IV Hypoglycemia 10/11/19 04:30 01/03/20 18:29 Diltiazem HCl (Cardizem Tab) 90 mg Q8HR GT 10/16/19 14:00 11/09/19 11:59 Docusate Sodium (Colace) 100 mg Q8HR GT 10/14/19 14:01 11/13/19 14:00 10/17/19 05:20 Epoetin Gelacio (Epoetin Gelacio(ESRD on dialysis)) 10,000 unit SUBQ 10/14/19 21:00 01/12/20 20:59 10/16/19 21:09 Haloperidol Lactate (Haldol) 5 mg Q6H PRN IM Agitation 10/11/19 05:00 11/22/19 10:59 10/17/19 10:48 Heparin Sodium (Porcine) (Heparin 5000 units/ml) 5,000 units EVERY 12 HOURS SUBQ 10/11/19 09:00 10/30/19 08:59 10/17/19 20:46 Insulin Aspart (NovoLOG) Q6HR SUBQ 10/11/19 06:00 01/03/20 20:59 Lansoprazole (Prevacid) 30 mg Q12HR GT 10/11/19 09:00 10/27/19 20:59 10/17/19 20:44 Lisinopril (PriniviL) 20 mg BID GT 10/11/19 09:00 11/08/19 17:59 10/16/19 17:42 Metoclopramide HCl (Reglan) 5 mg EVERY 6 HOURS GT 10/11/19 06:00 11/08/19 11:59 10/17/19 12:31 Metoprolol Tartrate (Lopressor) 25 mg Q12HR GT 10/11/19 09:00 01/07/20 20:59 10/16/19 08:22 Minoxidil (Loniten) 2.5 mg Q8HR ORAL 10/11/19 06:00 01/08/20 13:59 10/17/19 05:20 Morphine Sulfate (Morphine Sulfate) 2 mg Q6H PRN IVP For Pain 10/16/19 09:45 10/23/19 09:44 10/17/19 07:48 Polyethylene Glycol (Miralax) 17 gm BEDTIME ORAL 10/11/19 21:00 10/31/19 20:59 10/16/19 20:30 Risperidone (RisperDAL) 2 mg BEDTIME ORAL 10/11/19 21:00 11/19/19 20:59 10/17/19 20:45 Sorbitol (sorbitoL) 30 ml EVERY 6 HOURS PRN GT Constipation 10/11/19 06:00 10/29/19 17:59 Vitamin B Complex/ Vit C/Folic Acid (Nephrovite) 1 tab DAILY ORAL 10/11/19 09:00 11/05/19 08:59 10/17/19 08:14 Zinc Sulfate (Zinc Sulfate) 220 mg DAILY ORAL 10/11/19 09:00 10/21/19 08:59 10/17/19 08:14 Assessment/Plan Assessment/Plan ASSESSMENT Acute on chronic hypoxemic respiratory failure ( trach dependent), now on vent Tracheostomy status, s/p change to cuffed trach Sepsis Pulmonary edema Pleural effusion -worsening left pl effusion s/p thoracentesis L pleural effusion 09/26 -900 ml Pneumonia with MDR Pseudomonas UTI CHF ? cardiorenal COPD Acute kidney injury and chronic kidney disease-requiring start of HD Hypertension Atrial fibrillation Moderate pulm HTN Moderate AR Dysphagia , feeding by G-tube Electrolyte abnormalities Anemia Toxic metabolic encephalopathy likely due to sepsis and ARF HTN PAF Fevers. leukocytosis PLAN OF CARE PAULIE on vent AC trach changed 8/ pm from uncuffed to cuffed Shiley#[address] chest w/out contrast: - Bilateral pleural effusions, right greater than left, with bilateral lower lobe consolidation or volume loss. -Ground-glass densities in the upper lobes bilaterally. This is not specific. -Tracheostomy. -Increased superior mediastinal density. Stability of adenopathy cannot be excluded. -Atherosclerotic change. -Gastrostomy. -Ascites. -Left renal stent with left hydronephrosis and renal atrophy. VQ scan -> low probability for PE worsening resp status was due to need for HD, now after HD started, resp status improving, down to PEEP 5 and AC 20 trach care , pulmonary toilet Mucomyst was prior dc given lots of thin secretions, continue Duoneb prn rapid COVID 19 NGT x3 off Fentanyl gtt since 10/09 FiO2 down to 40% last ABG stable 10/09 CXR 10/14 -increased right pleural fluid and parenchymal disease, doubt PNA likely fluid tolerated CPAP trials with PS 8 FiO2 40% 10/14 x 4 hrs, then desaturated and placed back on AC vent continue CPAP trials as tolerated ( this am only tolerated for 30 min), due for HD today may continue in subacute upon discharge s/p thoracentesis L pleural effusion 09/26 am -> 900 ml fluid analysis noted, unlikely empyema given small # of WBC fup with fluid cx ( apparently never sent despite orders) cytology -> NGT, no malignant cells aspiration precautions venous Duplex BLE -> NGT DVT prophylaxis pulm toilet, BP regimen optimized as per nephro monitor volumes was on gentle IVF-> dc s/p prior diuretic-Lasix require initiation of HD continue further HD as per nephro with close monitoring of volumes, renal parameters and lytes -per nephro recs abx as per ID- s/p gent x 1, now on Vanco and Zerbaxa , completed 10/02 SCX 09/15 + Proteus, SCX 09/22 Pseudomonas MDR UCX 09/14 + Providencia , UCX 09/22 VRE - K only BCX 09/14 Staph epidermidis, BCX 09/15 NGT , BCX 09/22 and 09/26 - NGTD UCX 10/07 + VRE, Laura- per ID started on Dapto 10/10- pancx 10/14 due to fever and leukocytosis 10/14 BCX NGTD UCX 10/14 + Providencia, MDR, probably colonized SCX+GNB 2 dif species CXR 10/12 stable per ID recs keep off abx unless fevers, leukocytosis or resp distress ECHO with pEF , moderate pulm HTN and moderate AR BP management with current regimen of BB, Cardizem and Hydralazine, remains in SR monitor HH with goal to keep Hgb >7, heme on board on EPO supportive care pain management wound care bowel regimen stable for dc from pulm standpoint dc plan in progress Note; time of this note does not reflect the actual time patient was seen. [facility] and evaluated by supervising physician Juve Martinez MD 10/18/19 1249: Subjective Allergies: Coded Allergies: No Known Allergies (Unverified , 10/10/17) Assessment/Plan Assessment/Plan Patient seen and examined with FIRE MANAGEMENT SPECIALIST. Agree with above A&P as it reflects our joint deliberations. Yara Castro NP Oct 17, 2019 21:50 Juve Martinez MD Oct 18, 2019 12:49
[2019-10-18] VITALS: BP 149/74
[2019-10-18] MEDS: Morphine Sulfate 2mg/ml Inj(IV/IM USE ONLY) IVP PRN ×4 (00:05→21:10)
[2019-10-18] MEDS: Haloperidol 5mg/ml Inj IM PRN ×3 (02:13→16:39)
[2019-10-18 04:00] VITALS: BP 111/53
[2019-10-18] MEDS: Acetaminophen 650mg/20.3ml GT PRN ×3 (04:20→19:20)
[2019-10-18] MEDS: dilTIAZem HCl 90mg tab GT SCH ×3 (05:12→20:44)
[2019-10-18] MEDS: Docusate 100mg/10ml Liq GT SCH ×4 (05:12→20:41)
[2019-10-18] MEDS: Metoclopramide 10mg/10ml Liq GT SCH ×3 (05:12→18:04)
[2019-10-18] MEDS: Minoxidil 2.5mg tab ORAL SCH ×3 (05:12→20:47)
[2019-10-18] MEDS: NovoLOG Insulin Flexpen SUBQ SCH ×3 (05:14→17:08)
[2019-10-18 05:25] LABS: HEMATOCRIT 33.5 % (37.0-47.0); HEMOGLOBIN 10.8 G/DL (12.0-16.0); MEAN CORPUSCULAR VOLUME 93 FL (80-99); PLATELET COUNT 341 K/UL (150-450); RED BLOOD COUNT 3.62 M/UL (4.20-5.40); RED CELL DISTRIBUTION WIDTH 14.3 % (11.6-14.8); WHITE BLOOD COUNT 17.4 K/UL (4.8-10.8)
[2019-10-18 05:54] LABS: ALANINE AMINOTRANSFERASE 13 U/L (12-78); ALBUMIN 1.8 G/DL (3.4-5.0); ALBUMIN/GLOBULIN RATIO 0.4 (1.0-2.7); ALKALINE PHOSPHATASE 167 U/L (46-116); ANION GAP 10 mmol/L (5-15); ASPARTATE AMINO TRANSFERASE 27 U/L (15-37); BILIRUBIN,TOTAL 0.4 MG/DL (0.2-1.0); BLOOD UREA NITROGEN 49 mg/dL (7-18); CALCIUM 8.7 MG/DL (8.5-10.1); CARBON DIOXIDE 28 MMOL/L (21-32); CHLORIDE 97 MMOL/L (98-107); PHOSPHORUS 2.5 MG/DL (2.5-4.9); POTASSIUM 3.2 MMOL/L (3.5-5.1); SODIUM 135 MMOL/L (136-145)
[2019-10-18 08:00] VITALS: BP 120/57
[2019-10-18] MEDS: Zinc Sulfate 220mg ORAL SCH (08:31)
[2019-10-18] MEDS: Ascorbic Acid 500mg tab ORAL SCH (08:31)
[2019-10-18] MEDS: Nephrovite tab (Rena-Vite) ORAL SCH (08:32)
[2019-10-18] MEDS: Lisinopril 20mg tab GT SCH ×2 (08:32→18:04)
[2019-10-18] MEDS: Heparin 5000 units/ml inj SUBQ SCH ×2 (08:33→20:57)
--- NOTE | 2019-10-18 09:54 | Pulmonology Progress Note ---
Yara Castro RECEIVABLE EXECUTIVE 10/18/19 0954: Subjective ROS Limited/Unobtainable: Yes Allergies: Coded Allergies: No Known Allergies (Unverified , 10/10/17) Subjective in [place] now on CPAP trials with PS 8 no signs of resp distress afebrile, last fevers 10/13 this am leukocytosis with WBC 17.4 Objective Last 24 Hour Vital Signs Date Time Temp Pulse Resp B/P (MAP) Pulse Ox O2 Delivery O2 Flow Rate FiO2 10/18/19 09:19 62 27 40 10/18/19 08:32 123/59 10/18/19 08:31 65 123/59 10/18/19 07:20 63 16 40 10/18/19 07:20 95 10/18/19 05:16 59 20 40 10/18/19 05:12 59 111/53 10/18/19 05:12 111/53 10/18/19 04:00 40 10/18/19 04:00 Mechanical Ventilator Mechanical Ventilator Mechanical Ventilator 10/18/19 04:00 66 10/18/19 04:00 98.2 59 20 111/53 (72) 100 10/18/19 02:53 67 20 40 10/18/19 00:39 72 22 40 10/18/19 00:00 Mechanical Ventilator Mechanical Ventilator Mechanical Ventilator 10/18/19 00:00 98.4 66 20 149/74 (99) 100 10/18/19 00:00 84 10/17/19 23:39 144/58 10/17/19 23:39 66 165/68 10/17/19 22:50 66 20 40 10/17/19 21:49 54 165/68 10/17/19 20:50 54 20 40 10/17/19 20:00 Mechanical Ventilator Mechanical Ventilator Mechanical Ventilator 10/17/19 20:00 98.3 53 20 165/68 (100) 100 10/17/19 20:00 40 10/17/19 19:36 58 10/17/19 18:57 54 20 40 10/17/19 16:00 97.9 60 20 155/78 (103) 100 10/17/19 16:00 53 10/17/19 16:00 Mechanical Ventilator Mechanical Ventilator Mechanical Ventilator 10/17/19 16:00 40 10/17/19 12:00 40 10/17/19 12:00 Mechanical Ventilator Mechanical Ventilator Mechanical Ventilator 10/17/19 12:00 97.9 62 20 145/62 (89) 100 10/17/19 11:58 62 10/17/19 11:02 62 20 40 Intake and Output 10/17/19 10/18/19 19:00 07:00 Intake Total 610 ml Output Total 3800 ml Balance -3190 ml Intake Free Water 130 ml Tube Feeding 480 ml Output Urine Total 800 ml Hemodialysis UF 3000 ml # Bowel Movements 3 1 Objective General Appearance: no apparent distress, bedridden middle age chronically ill looking female on vent AC 500-20- 40%, PEEP 5, awake, calm-currently on CPAP PS8 Lines, tubes and drains: left jugular HD catheter HEENT: normocephalic, atraumatic, anicteric, trach - Shiley #7 cuffed XLT, secretions small amount, yellow color , thick consistency Respiratory/Chest: no accessory muscle use, few isolated rhonchi Cardiovascular/Chest: normal rate, regular rhythm - SR on tele Abdomen: normal bowel sounds, non tender, soft, G tube Genitourinary/Rectal: Norman Extremities: no edema Skin Exam: warm/dry, multiple tattoos all over the body Neurologic: awake, no gross focal Musculoskeletal: atrophy - BLE Microbiology Date/Time Source Procedure Growth Status 10/15/19 14:00 Blood Blood Culture - Preliminary NO GROWTH AFTER 48 HOURS Resulted 10/15/19 13:55 Blood Blood Culture - Preliminary NO GROWTH AFTER 48 HOURS Resulted 10/15/19 15:20 Sputum Gram Stain - Final Resulted 10/15/19 15:20 Sputum Culture - Preliminary Proteus Mirabilis Esbl Gram Negative Bacillus 2 Resulted 10/15/19 13:20 Urine,Clean Catch Urine Culture - Final Providencia Stuartii Complete Laboratory Tests 10/17/19 12:17: POC Whole Blood Glucose 116H 10/18/19 03:05: White Blood Count 17.4#H, Red Blood Count 3.62L, Hemoglobin 10.8L, Hematocrit 33.5L, Mean Corpuscular Volume 93, Mean Corpuscular Hemoglobin 30.0, Mean Corpuscular Hemoglobin Concent 32.4, Red Cell Distribution Width 14.3, Platelet Count 341, Mean Platelet Volume 5.0L, Neutrophils (%) (Auto) , Lymphocytes (%) ( Auto) , Monocytes (%) (Auto) , Eosinophils (%) (Auto) , Basophils (%) (Auto) , Differential Total Cells Counted 100, Neutrophils % (Manual) 91H, Lymphocytes % (Manual) 4L, Monocytes % (Manual) 5, Eosinophils % (Manual) 0, Basophils % ( Manual) 0, Band Neutrophils 0, Nucleated Red Blood Cells 1, Platelet Estimate Adequate, Platelet Morphology Normal, Hypochromasia 1+, Anisocytosis 1+, Sodium Level 135L, Potassium Level 3.2L, Chloride Level 97L, Carbon Dioxide Level 28, Anion Gap 10, Blood Urea Nitrogen 49H, Creatinine 2.0H, Estimat Glomerular Filtration Rate 26.7, Glucose Level 98, Calcium Level 8.7, Phosphorus Level 2.5 , Magnesium Level 2.6H, Total Bilirubin 0.4, Aspartate Amino Transf (AST/SGOT) 27, Alanine Aminotransferase (ALT/SGPT) 13, Alkaline Phosphatase 167H, C- Reactive Protein, Quantitative 5.2H, Pro-B-Type Natriuretic Peptide 44569K, Total Protein 6.9, Albumin 1.8L, Globulin 5.1, Albumin/Globulin Ratio 0.4L Current Medications Medications (Trade) Dose Ordered Sig/Penny Route PRN Reason Start Time Stop Time Status Last Admin Dose Admin Acetaminophen (Tylenol) 325 mg Q4H PRN GT Mild Pain (Pain Scale 1-3) 10/17/19 18:45 11/16/19 18:44 Acetaminophen (Tylenol) 325 mg Q6H PRN GT Temp >100.5 10/11/19 04:45 10/23/19 10:44 10/18/19 04:20 Ascorbic Acid (Vitamin C) 500 mg DAILY ORAL 10/11/19 09:00 11/05/19 08:59 10/18/19 08:31 Chlorhexidine Gluconate (Ling-Hex 2%) 1 applic DAILY@2000 TOPIC 10/11/19 20:00 12/22/19 19:59 10/17/19 20:45 Clonidine HCl (Catapres TTS-3) 1 patch QWEEK TDERMAL 10/14/19 12:00 01/12/20 11:59 10/14/19 11:51 Dextrose (Dextrose 50%) 25 ml Q30M PRN IV Hypoglycemia 10/11/19 04:30 01/03/20 18:29 Dextrose (Dextrose 50%) 50 ml Q30M PRN IV Hypoglycemia 10/11/19 04:30 01/03/20 18:29 Diltiazem HCl (Cardizem Tab) 90 mg Q8HR GT 10/16/19 14:00 11/09/19 11:59 Docusate Sodium (Colace) 100 mg Q8HR GT 10/14/19 14:01 11/13/19 14:00 10/17/19 05:20 Epoetin Gelacio (Epoetin Gelacio(ESRD on dialysis)) 10,000 unit MON- SUBQ 10/14/19 21:00 01/12/20 20:59 10/16/19 21:09 Haloperidol Lactate (Haldol) 5 mg Q6H PRN IM Agitation 10/11/19 05:00 11/22/19 10:59 10/18/19 02:13 Heparin Sodium (Porcine) (Heparin 5000 units/ml) 5,000 units EVERY 12 HOURS SUBQ 10/11/19 09:00 10/30/19 08:59 10/18/19 08:33 Insulin Aspart (NovoLOG) Q6HR SUBQ 10/11/19 06:00 01/03/20 20:59 Lansoprazole (Prevacid) 30 mg Q12HR GT 10/11/19 09:00 10/27/19 20:59 10/18/19 08:31 Lisinopril (PriniviL) 20 mg BID GT 10/11/19 09:00 11/08/19 17:59 10/18/19 08:32 Metoclopramide HCl (Reglan) 5 mg EVERY 6 HOURS GT 10/11/19 06:00 11/08/19 11:59 10/18/19 05:12 Metoprolol Tartrate (Lopressor) 25 mg Q12HR GT 10/11/19 09:00 01/07/20 20:59 10/18/19 08:31 Minoxidil (Loniten) 2.5 mg Q8HR ORAL 10/11/19 06:00 01/08/20 13:59 10/18/19 05:12 Morphine Sulfate (Morphine Sulfate) 2 mg Q6H PRN IVP For Pain 10/16/19 09:45 10/23/19 09:44 10/18/19 07:43 Polyethylene Glycol (Miralax) 17 gm BEDTIME ORAL 10/11/19 21:00 10/31/19 20:59 10/16/19 20:30 Potassium Chloride 100 ml @ 50 mls/hr ONCE IVPB 10/18/19 09:00 10/18/19 10:00 10/18/19 08:39 Risperidone (RisperDAL) 2 mg BEDTIME ORAL 10/11/19 21:00 11/19/19 20:59 10/17/19 20:45 Sorbitol (sorbitoL) 30 ml EVERY 6 HOURS PRN GT Constipation 10/11/19 06:00 10/29/19 17:59 Vitamin B Complex/ Vit C/Folic Acid (Nephrovite) 1 tab DAILY ORAL 10/11/19 09:00 11/05/19 08:59 10/18/19 08:32 Zinc Sulfate (Zinc Sulfate) 220 mg DAILY ORAL 10/11/19 09:00 10/21/19 08:59 10/18/19 08:31 Assessment/Plan Assessment/Plan ASSESSMENT Acute on chronic hypoxemic respiratory failure ( trach dependent), now on vent Tracheostomy status, s/p change to cuffed trach Sepsis Pulmonary edema Pleural effusion -worsening left pl effusion s/p thoracentesis L pleural effusion 09/26 -900 ml Pneumonia with MDR Pseudomonas UTI CHF ? cardiorenal COPD Acute kidney injury and chronic kidney disease-requiring start of HD Hypertension Atrial fibrillation Moderate pulm HTN Moderate AR Dysphagia , feeding by G-tube Electrolyte abnormalities Anemia Toxic metabolic encephalopathy likely due to sepsis and ARF HTN PAF Fevers. leukocytosis PLAN OF CARE PAULIE on vent AC trach changed 8/4 pm from uncuffed to cuffed Shiley#[address] chest w/out contrast: - Bilateral pleural effusions, right greater than left, with bilateral lower lobe consolidation or volume loss. -Ground-glass densities in the upper lobes bilaterally. This is not specific. -Tracheostomy. -Increased superior mediastinal density. Stability of adenopathy cannot be excluded. -Atherosclerotic change. -Gastrostomy. -Ascites. -Left renal stent with left hydronephrosis and renal atrophy. VQ scan -> low probability for PE worsening resp status was due to need for HD, now after HD started, resp status improving, down to PEEP 5 and AC 20 trach care , pulmonary toilet Mucomyst was prior dc given lots of thin secretions, continue Duoneb prn rapid COVID 19 NGT x3 off Fentanyl gtt since 10/09 FiO2 down to 40% last ABG stable 10/09 CXR 10/14 -increased right pleural fluid and parenchymal disease, doubt PNA likely fluid tolerated CPAP trials with PS 8 FiO2 40% 10/14 x 4 hrs, then desaturated and placed back on AC vent continue CPAP trials as tolerated ( this am only tolerated for 30 min), due for HD today may continue in subacute upon discharge s/p thoracentesis L pleural effusion 09/26 am -> 900 ml fluid analysis noted, unlikely empyema given small # of WBC fup with fluid cx ( apparently never sent despite orders) cytology -> NGT, no malignant cells aspiration precautions venous Duplex BLE -> NGT DVT prophylaxis pulm toilet, BP regimen optimized as per nephro monitor volumes was on gentle IVF-> dc s/p prior diuretic-Lasix require initiation of HD continue further HD as per nephro with close monitoring of volumes, renal parameters and lytes -per nephro recs abx as per ID- s/p gent x 1, now on Vanco and Zerbaxa , completed 10/02 SCX 09/15 + Proteus, SCX 09/22 Pseudomonas MDR UCX 09/14 + Providencia , UCX 09/22 VRE - K only BCX 09/14 Staph epidermidis, BCX 09/15 NGT , BCX 09/22 and 09/26 - NGTD UCX 10/07 + VRE, Laura- per ID started on Dapto 10/10- pancx 10/14 due to fever and leukocytosis 10/14 BCX NGTD UCX 10/14 + Providencia, MDR, probably colonized SCX+proteus ESBL, GNB CXR 10/12 stable per ID recs keep off abx unless fevers, leukocytosis or resp distress leuk this am, no fevers - ? restart abx- > per ID recs CXR today ECHO with pEF , moderate pulm HTN and moderate AR BP management with current regimen of BB, Cardizem and Hydralazine, remains in SR monitor HH with goal to keep Hgb >7, heme on board on EPO supportive care pain management wound care bowel regimen stable for dc from pulm standpoint dc plan in progress Note; time of this note does not reflect the actual time patient was seen. Neeraj was down case discussed and evaluated by supervising physician Juve Martinez MD 10/18/19 1249: Subjective Allergies: Coded Allergies: No Known Allergies (Unverified , 10/10/17) Assessment/Plan Assessment/Plan Patient seen and examined with RECEIVABLE EXECUTIVE. Agree with above A&P as it reflects our joint deliberations. Yara Castro NP Oct 18, 2019 09:54 Juve Martinez MD Oct 18, 2019 12:49
--- NOTE | 2019-10-18 10:45 | General Progress Note ---
Assessment/Plan Problem List: (1) S/P aortic dissection repair ICD Codes: Z98.890 - Other specified postprocedural states SNOMED: 660959285, 766923021 (2) Sacral decubitus ulcer, stage IV ICD Codes: L89.154 - Pressure ulcer of sacral region, stage 4 SNOMED: 414525412, 819407934 (3) Anemia ICD Codes: D64.9 - Anemia, unspecified SNOMED: 727713736 (4) GT CLOGGED (5) Feeding by G-tube ICD Codes: Z93.1 - Gastrostomy status SNOMED: 608599138, 602253459 (6) Tracheostomy in place ICD Codes: Z93.0 - Tracheostomy status SNOMED: 037780964 (7) Pacemaker ICD Codes: Z95.0 - Presence of cardiac pacemaker SNOMED: 844110417 (8) Chronic respiratory failure ICD Codes: J96.10 - Chronic respiratory failure, unspecified whether with hypoxia or hypercapnia SNOMED: 25910582 Status: stable, other - Mood has improved he is able to smile there is no continuous tearing overall she looks better today energy looking the last several days continue with the same management Assessment/Plan: GTF monitor for residuals repeat labs abx per ID respiratory care dc planning per primary team Subjective ROS Limited/Unobtainable: No Allergies: Coded Allergies: No Known Allergies (Unverified , 10/10/17) Objective Last 24 Hour Vital Signs Date Time Temp Pulse Resp B/P (MAP) Pulse Ox O2 Delivery O2 Flow Rate FiO2 10/18/19 09:19 62 27 40 10/18/19 08:32 123/59 10/18/19 08:31 65 123/59 10/18/19 08:00 Mechanical Ventilator Mechanical Ventilator Mechanical Ventilator 10/18/19 08:00 97.7 62 20 120/57 (78) 100 10/18/19 08:00 40 10/18/19 07:38 65 10/18/19 07:20 63 16 40 10/18/19 07:20 95 10/18/19 05:16 59 20 40 10/18/19 05:12 59 111/53 10/18/19 05:12 111/53 10/18/19 04:00 40 10/18/19 04:00 Mechanical Ventilator Mechanical Ventilator Mechanical Ventilator 10/18/19 04:00 66 10/18/19 04:00 98.2 59 20 111/53 (72) 100 10/18/19 02:53 67 20 40 10/18/19 00:39 72 22 40 10/18/19 00:00 Mechanical Ventilator Mechanical Ventilator Mechanical Ventilator 10/18/19 00:00 98.4 66 20 149/74 (99) 100 10/18/19 00:00 84 10/17/19 23:39 144/58 10/17/19 23:39 66 165/68 10/17/19 22:50 66 20 40 10/17/19 21:49 54 165/68 10/17/19 20:50 54 20 40 10/17/19 20:00 Mechanical Ventilator Mechanical Ventilator Mechanical Ventilator 10/17/19 20:00 98.3 53 20 165/68 (100) 100 10/17/19 20:00 40 10/17/19 19:36 58 10/17/19 18:57 54 20 40 10/17/19 16:00 97.9 60 20 155/78 (103) 100 10/17/19 16:00 53 10/17/19 16:00 Mechanical Ventilator Mechanical Ventilator Mechanical Ventilator 10/17/19 16:00 40 10/17/19 12:00 40 10/17/19 12:00 Mechanical Ventilator Mechanical Ventilator Mechanical Ventilator 10/17/19 12:00 97.9 62 20 145/62 (89) 100 10/17/19 11:58 62 10/17/19 11:02 62 20 40 Intake and Output 10/17/19 10/18/19 19:00 07:00 Intake Total 610 ml Output Total 3800 ml Balance -3190 ml Intake Free Water 130 ml Tube Feeding 480 ml Output Urine Total 800 ml Hemodialysis UF 3000 ml # Bowel Movements 3 1 Laboratory Tests 10/17/19 12:17: POC Whole Blood Glucose 116H 10/18/19 03:05: White Blood Count 17.4#H, Red Blood Count 3.62L, Hemoglobin 10.8L, Hematocrit 33.5L, Mean Corpuscular Volume 93, Mean Corpuscular Hemoglobin 30.0, Mean Corpuscular Hemoglobin Concent 32.4, Red Cell Distribution Width 14.3, Platelet Count 341, Mean Platelet Volume 5.0L, Neutrophils (%) (Auto) , Lymphocytes (%) ( Auto) , Monocytes (%) (Auto) , Eosinophils (%) (Auto) , Basophils (%) (Auto) , Differential Total Cells Counted 100, Neutrophils % (Manual) 91H, Lymphocytes % (Manual) 4L, Monocytes % (Manual) 5, Eosinophils % (Manual) 0, Basophils % ( Manual) 0, Band Neutrophils 0, Nucleated Red Blood Cells 1, Platelet Estimate Adequate, Platelet Morphology Normal, Hypochromasia 1+, Anisocytosis 1+, Sodium Level 135L, Potassium Level 3.2L, Chloride Level 97L, Carbon Dioxide Level 28, Anion Gap 10, Blood Urea Nitrogen 49H, Creatinine 2.0H, Estimat Glomerular Filtration Rate 26.7, Glucose Level 98, Calcium Level 8.7, Phosphorus Level 2.5 , Magnesium Level 2.6H, Total Bilirubin 0.4, Aspartate Amino Transf (AST/SGOT) 27, Alanine Aminotransferase (ALT/SGPT) 13, Alkaline Phosphatase 167H, C- Reactive Protein, Quantitative 5.2H, Pro-B-Type Natriuretic Peptide 22104I, Total Protein 6.9, Albumin 1.8L, Globulin 5.1, Albumin/Globulin Ratio 0.4L Height (Feet): 5 Height (Inches): 5.00 Weight (Pounds): 144 General Appearance: no apparent distress EENT: normal ENT inspection Neck: supple Cardiovascular: normal rate Respiratory/Chest: decreased breath sounds Abdomen: normal bowel sounds, non tender, soft Extremities: non-tender Inder Mccauley MD Oct 18, 2019 10:45
--- NOTE | 2019-10-18 11:51 | Nephrology Progress Note ---
Assessment/Plan Problem List: (1) JAVIER (acute kidney injury) (2) Renal failure (ARF), acute on chronic (3) Dehydration (4) Electrolyte imbalance (5) Anemia (6) Respiratory failure, acute and chronic (7) COPD with exacerbation Assessment Patient is presented with sepsis and pneumonia and UTI Patient has acute renal failure, possible underlying chronic kidney failure Severe anemia Electrolyte imbalances: Hyponatremia, hypo-kalemia Chronic respiratory failure, COPD exacerbation Plan October 17: It appears that the patient received dialysis last night and the dialysis nurse changed her mind about delaying to today. Today's labs reviewed. Electrolyte abnormalities corrected. Continue per consultants. October 16: Late note entry due to system problem [place] the [facility] [place].Patient due for dialysis today. Dialysis nurse informed that due to few emergencies if she can be done tomorrow. No chemistry panel for today." We will order labs on dialysis tomorrow. October 15: Last dialysis October 13. Labs were reviewed. Urine output very low. Will dialyze and ultrafiltrate tomorrow. Per consultants. October 14: Dialyzed yesterday. Labs reviewed. Medication list reviewed. Continue per consultants. October 13: Patient seen on dialysis. Tolerating well. Will check labs tomorrow. October 12: Blood pressure stable. Labs reviewed. BUN rising. Remains oliguric. Dialysis tomorrow. October 11: Blood pressure is stable. Labs reviewed. Continue as is. Dialysis as needed October 10: Blood pressure medication adjusted. Will check lab tomorrow. Dialysis as needed. Urine output remains low. October 09: Lab reviewed. Remains oliguric. Will give trial of Zaroxolyn. Continue per consultants. Adjust blood pressure medication. Will add Zaroxolyn and increased dose of Cardizem and add clonidine patch for better BP control October 08: Labs reviewed. Patient oliguric. Blood pressure elevated, BP medication adjusted. Recheck lab tomorrow. Dialysis and ultrafiltration as needed. October 07: Labs reviewed. Patient was dialyzed yesterday. 3000 mL fluid was removed. Patient appears to need periodic (twice a week minimum) dialysis for ultrafiltration. Continue to monitor renal parameters. Continue per consultants. October 06: Labs reviewed. Discussed with pulmonary. Will attempt dialysis and ultrafiltration. Continue per consultants. October 05: Lab reviewed. Serum creatinine rising. Blood pressure stabilized. Will recheck lab tomorrow. Dialysis as needed. Will increase lisinopril to 10 mg twice a day. October 04: Lab reviewed. Blood pressure medication adjusted since the patient is hypotensive. Serum creatinine rising. Recheck labs tomorrow. Dialysis as needed. Discussed with RN. October 03: Lab reviewed. Zestril added to BP medication. 1 dose of Seroquel ordered for agitation. Continue to monitor renal parameters. Continue per consultants. October 02: Lab reviewed. Potassium supplement IV given. 3% saline 250 cc ordered. Responded well to Zaroxolyn yesterday. Will continue to monitor electrolytes and renal parameters. Will increase minoxidil to 2.5 mg every 6 hours. October 01: Labs reviewed. Potassium supplement given. Last dialysis September 29. Serum creatinine rising gradually. Urine output very low. Patient appears to continue to need dialysis at least twice a week. Blood pressure still running high I will switch the hydralazine to minoxidil. We will give 1 dose of Zaroxolyn 10 mg today. Will check renal parameters tomorrow. September 30: Patient dialyzed yesterday. 3 L removed. Labs reviewed. Potassium supplement given. Continue per consultants. It appears that the patient required dialysis 2-3 times a week. September 29: Lab reviewed. Chest x-ray result noted. Continues to have pulmonary congestion. Urine output low. Will attempt dialysis again today with ultrafiltration. September 28: Lab reviewed. ABG reviewed. Potassium supplement given. No dialysis at this point. Will eval patient status and renal parameters daily. September 27: Lab reviewed. Last dialysis September 25. Continue to monitor renal parameters. Hemodialysis as needed. September 26: Lab reviewed. Dialyzed yesterday. Potassium supplement given. Medication list reviewed. Will observe renal parameters and arrange for dialysis as needed. September 25: Lab reviewed. Currently on hemodialysis. Tolerating well. Stable from renal standpoint of view. Blood pressure medication adjusted by increasing hydralazine. September 24: Lab reviewed. ABG reviewed. Both lab and ABG much improved. Patient was dialyzed yesterday. We will attempt dialysis tomorrow again. Will adjust that blood pressure medication dosages. September 23: Lab reviewed. ABG reviewed. Patient acidotic. IV bicarb 1 dose is given. Patient has dialysis catheter. Will order dialysis for ultrafiltration and correction of acid-base. Discussed with ERASMO Mohr. September 22: Labs reviewed. Potassium high. Kayexalate and Reglan given. Will discuss with the consultants regarding initiation of dialysis. September 21: Patient is being sedated. Labs reviewed. Potassium supplement discontinued. GFR 20. Continue per current treatment plan. Dialysis and ultrafiltration is a consideration. September 20: Patient periodically agitated. Labs reviewed. Creatinine 2.4. Medication reviewed. Continue per consultants. Calculated creatinine clearance 21. May need isolated ultrafiltration on dialysis. Will discuss with PMD. Meanwhile hemoglobin is lower, defer transfusion to PMD. September 19: DC IV fluid. Zaroxolyn via GT tube. Potassium supplement. Attempt to diurese. Chest CT as bilateral pleural effusion. If diuresis unsuccessful, will consider dialysis and ultrafiltration. September 18: Potassium supplement IV given. Hemoglobin stable. Patient remains full code. Continue per consultants. Previously: Potassium supplement IV Slow IV hydration Epogen subcu Adjust blood pressure medication IV fluid, rate adjusted Norman catheter, intake and output Monitor renal parameters Avoid nephrotoxic's Antibiotics Per orders 2D echocardiogram Kidney ultrasound Subjective ROS Limited/Unobtainable: Yes Objective Objective Last 24 Hour Vital Signs Date Time Temp Pulse Resp B/P (MAP) Pulse Ox O2 Delivery O2 Flow Rate FiO2 10/18/19 11:16 56 20 40 10/18/19 09:19 62 27 40 10/18/19 08:32 123/59 10/18/19 08:31 65 123/59 10/18/19 08:00 Mechanical Ventilator Mechanical Ventilator Mechanical Ventilator 10/18/19 08:00 97.7 62 20 120/57 (78) 100 10/18/19 08:00 40 10/18/19 07:38 65 10/18/19 07:20 63 16 40 10/18/19 07:20 95 10/18/19 05:16 59 20 40 10/18/19 05:12 59 111/53 10/18/19 05:12 111/53 10/18/19 04:00 40 10/18/19 04:00 Mechanical Ventilator Mechanical Ventilator Mechanical Ventilator 10/18/19 04:00 66 10/18/19 04:00 98.2 59 20 111/53 (72) 100 10/18/19 02:53 67 20 40 10/18/19 00:39 72 22 40 10/18/19 00:00 Mechanical Ventilator Mechanical Ventilator Mechanical Ventilator 10/18/19 00:00 98.4 66 20 149/74 (99) 100 10/18/19 00:00 84 10/17/19 23:39 144/58 10/17/19 23:39 66 165/68 10/17/19 22:50 66 20 40 10/17/19 21:49 54 165/68 10/17/19 20:50 54 20 40 10/17/19 20:00 Mechanical Ventilator Mechanical Ventilator Mechanical Ventilator 10/17/19 20:00 98.3 53 20 165/68 (100) 100 10/17/19 20:00 40 10/17/19 19:36 58 10/17/19 18:57 54 20 40 10/17/19 16:00 97.9 60 20 155/78 (103) 100 10/17/19 16:00 53 10/17/19 16:00 Mechanical Ventilator Mechanical Ventilator Mechanical Ventilator 10/17/19 16:00 40 10/17/19 12:00 40 10/17/19 12:00 Mechanical Ventilator Mechanical Ventilator Mechanical Ventilator 10/17/19 12:00 97.9 62 20 145/62 (89) 100 10/17/19 11:58 62 Intake and Output 10/17/19 10/18/19 19:00 07:00 Intake Total 610 ml Output Total 3800 ml Balance -3190 ml Intake Free Water 130 ml Tube Feeding 480 ml Output Urine Total 800 ml Hemodialysis UF 3000 ml # Bowel Movements 3 1 Laboratory Tests 10/17/19 12:17: POC Whole Blood Glucose 116H 10/18/19 03:05: White Blood Count 17.4#H, Red Blood Count 3.62L, Hemoglobin 10.8L, Hematocrit 33.5L, Mean Corpuscular Volume 93, Mean Corpuscular Hemoglobin 30.0, Mean Corpuscular Hemoglobin Concent 32.4, Red Cell Distribution Width 14.3, Platelet Count 341, Mean Platelet Volume 5.0L, Neutrophils (%) (Auto) , Lymphocytes (%) ( Auto) , Monocytes (%) (Auto) , Eosinophils (%) (Auto) , Basophils (%) (Auto) , Differential Total Cells Counted 100, Neutrophils % (Manual) 91H, Lymphocytes % (Manual) 4L, Monocytes % (Manual) 5, Eosinophils % (Manual) 0, Basophils % ( Manual) 0, Band Neutrophils 0, Nucleated Red Blood Cells 1, Platelet Estimate Adequate, Platelet Morphology Normal, Hypochromasia 1+, Anisocytosis 1+, Sodium Level 135L, Potassium Level 3.2L, Chloride Level 97L, Carbon Dioxide Level 28, Anion Gap 10, Blood Urea Nitrogen 49H, Creatinine 2.0H, Estimat Glomerular Filtration Rate 26.7, Glucose Level 98, Calcium Level 8.7, Phosphorus Level 2.5 , Magnesium Level 2.6H, Total Bilirubin 0.4, Aspartate Amino Transf (AST/SGOT) 27, Alanine Aminotransferase (ALT/SGPT) 13, Alkaline Phosphatase 167H, C- Reactive Protein, Quantitative 5.2H, Pro-B-Type Natriuretic Peptide 07669N, Total Protein 6.9, Albumin 1.8L, Globulin 5.1, Albumin/Globulin Ratio 0.4L Height (Feet): 5 Height (Inches): 5.00 Weight (Pounds): 144 General Appearance: no apparent distress EENT: other - On ventilator Cardiovascular: normal rate Respiratory/Chest: decreased breath sounds Abdomen: distended Objective No change Johnny Houston MD Oct 18, 2019 11:51
[2019-10-18 12:00] VITALS: BP 130/59
--- NOTE | 2019-10-18 12:06 | Infectious Diseases Prog Note ---
Assessment/Plan 49yo F with: Fever, recurrent; SP Leukocytosis, recurrent -10/14 Bcx NTD Acute hypoxic resp failure: Now on vent, worsening, FiO2 100% > 80% 09/27 > 60% >40% 10/08 >30% 10/09 >40% 10/14 Pneumonia, COVID19 neg x3 - MDR PsA pneumonia,s pr x 10/14 CXR: Increased right pleural fluid and parenchymal disease, since previous exam of 10/09/2019. Stable pleural and parenchymal disease on the left sp cx ESBL P. mirabilis, GNR #2 10/07 CXR: Bilateral infiltrates versus edema, left greater than right pleural effusions are again demonstrated, unchanged. There is slightly better inspiration currently. 09/29 CXR: Bilateral edema versus infiltrates appears slightly worse than on the prior study. There is probably some pleural fluid on the left. 09/26 S/P thoracentesis, 900cc removed, only 67 WBC in fluid analysis, unlikely empyema 09/26 CXR: Worsening R perihilar opacity 09/26 BCx Neg 09/24 CXR: Previously demonstrated right lateral basilar lucency is no longer evident, was presumably a skin fold artifact. Bilateral infiltrates and left pleural effusion are probably unchanged allowing for slight differences in technique. 09/22 Resp cx + MDR PsA (S-gent; I-colistin; R-levofloxacin, Zosyn, angelo) 09/22 BCx NTD 09/22 CXR: worsening BL pna 09/22 UA w/ persistent pyuria, now on HD, UCx +VRE, most likely colonizer as improving wo tx for this 09/19 V/Q scan, low probability of PE 09/18 Rapid COVID PCR neg 09/18 CT chest: Markedly suboptimal examination due to lack of IV contrast material. Bilateral pleural effusions, right greater than left, with bilateral lower lobe consolidation or volume loss. Ground glass densities in the upper lobes bilaterally. This is not specific. Tracheostomy. Increased superior mediastinal density. Stability of adenopathy cannot be excluded. Atherosclerotic change. Gastrostomy. Ascites. Left renal stent with left hydronephrosis and renal atrophy. 09/17 Chest US: Trace right and small left pleural effusions. No safe window identified for bedside thoracentesis. Note that the majority of the left pleural effusion is subpulmonic. 8/4 CXR: Worsening of right lung infiltrates and right effusion. V. duplex: NO DVT D-dimer elevated 09/15 Rapid COVID PCR neg 09/15 Sp cx ESBL P. mirablis 09/14 CXR: Bilateral airspace opacities, preferentially involving the right lung, consistent with multifocal infiltrate. Trace bilateral pleural effusions. No pneumothorax. Rapid COVID PCR neg Urine legionella neg 09/16 GPC bacteremia, real vs contaminant; does have hx of infected PPM- 09/14 Bcx 2/4 S. epidermis; 09/15, , Bcx Neg 2d echo: no vegetations seen UTI, recurrent 09/14 u/a wbc tnct, nit neg, leuk +3; ucx >100k MDR P. stuarti (S Ceftriaxone, Meropenem) 09/22 UA w/ ongoing pyuria, unchanged 10/07 u/a wbc tnct, nit neg, leuk ; ucx >100k VRE 10/14 u/a wbc tnct; ucx >100k ESBL P. stuarti (S ertapenem, aztreonam) Unstageable sacral ulceration JAVIER on CKD --> now on HD Renal US: Limited exam due to abdominal ascites and shadowing from bowel gas. CT recommended for more sensitive evaluation. Moderate right hydronephrosis. Increased renal parenchymal echogenicity suggesting intrinsic/ medical renal disease. Question indwelling left ureteral stent versus artifact. Bladder not visualized. 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 epi-11/2018, sp > 6weeks IV vancomycin 11/27 SP ABBIE: no evidence for vegetation on any of the valves 11/26/18 SP PPM removal: OR findings:The fibrous capsule enclosing the generator was then opened and there was a [id number] amount of yellowish fluid drainage. The generator was then removed.Atrial and ventricular leads were detached. The necrotic tissue of the pocket was then removed and the pocket was flushed with an antibiotic solution. Capsule, wound tissue and lead tip cx: Neg 2d echo: no vegetation seen US chest: 4.6 x 3.4 x 0.9 cm hypoechoic/anechoic area overlying left chest pacemaker power pack. This could represent either a discrete fluid collection or a focal area of very edematous tissue. Infected fluid pocket also possible. 11/18 Bcx 3/4 S. epi; 11/20 Bcx neg; 11/24 Bcx Neg; 11/27 Bcx Neg Hx of PNA 11/2019? sp cx PsA (arnett S), ABC (I Ceftriaxone; otherwise negative) Sp cx MRSA, ABC (I Ceftriaxone; otherwise S) PMH: Afib HTN Dysphagia sp GT Aortic dissection s/p repair 2017, S/p PPM Parkinson's Disease Schizophrenia Anxiety COPD Chronic resp failure s/p trach Hx of tracheal bleeding [place] resident ([facility]) Plan: Start Meropenem for UTI and PNA given recurrent leukocytosis 10/14 SP Daptomycin #5 10/03 SP Zerbaxa #6, gent #7 for MDR PsA pna 09/29 SP vanco #15 for S.epi in BCx 09/27 SP angelo #13 09/16 SP Cefepime #3, Levaquin #3 Monitor CBC/CMP, temperatures trach/ peg care Aspiration precautions f/u repeat cultures CXr am D/w RN and pulmonary team Thank you for this consultation. Will continue to follow along with you. Subjective Allergies: Coded Allergies: No Known Allergies (Unverified , 10/10/17) afebrile leukocytosis recurrent; now 17 Bcx NTD Objective Last 24 Hour Vital Signs Date Time Temp Pulse Resp B/P (MAP) Pulse Ox O2 Delivery O2 Flow Rate FiO2 10/18/19 11:16 56 20 40 10/18/19 09:19 62 27 40 10/18/19 08:32 123/59 10/18/19 08:31 65 123/59 10/18/19 08:00 Mechanical Ventilator Mechanical Ventilator Mechanical Ventilator 10/18/19 08:00 97.7 62 20 120/57 (78) 100 10/18/19 08:00 40 10/18/19 07:38 65 10/18/19 07:20 63 16 40 10/18/19 07:20 95 10/18/19 05:16 59 20 40 10/18/19 05:12 59 111/53 10/18/19 05:12 111/53 10/18/19 04:00 40 10/18/19 04:00 Mechanical Ventilator Mechanical Ventilator Mechanical Ventilator 10/18/19 04:00 66 10/18/19 04:00 98.2 59 20 111/53 (72) 100 10/18/19 02:53 67 20 40 10/18/19 00:39 72 22 40 10/18/19 00:00 Mechanical Ventilator Mechanical Ventilator Mechanical Ventilator 10/18/19 00:00 98.4 66 20 149/74 (99) 100 10/18/19 00:00 84 10/17/19 23:39 144/58 10/17/19 23:39 66 165/68 10/17/19 22:50 66 20 40 10/17/19 21:49 54 165/68 10/17/19 20:50 54 20 40 10/17/19 20:00 Mechanical Ventilator Mechanical Ventilator Mechanical Ventilator 10/17/19 20:00 98.3 53 20 165/68 (100) 100 10/17/19 20:00 40 10/17/19 19:36 58 10/17/19 18:57 54 20 40 10/17/19 16:00 97.9 60 20 155/78 (103) 100 10/17/19 16:00 53 10/17/19 16:00 Mechanical Ventilator Mechanical Ventilator Mechanical Ventilator 10/17/19 16:00 40 Height (Feet): 5 Height (Inches): 5.00 Weight (Pounds): 144 Gen: no distress Cardiovascular: RrR, S1 S2 normal Respiratory: decreased breath sounds Abdomen: soft, non-tender, present bowel sounds Extremities: no edema, no tenderness Microbiology Date/Time Source Procedure Growth Status 10/15/19 14:00 Blood Blood Culture - Preliminary NO GROWTH AFTER 48 HOURS Resulted 10/15/19 13:55 Blood Blood Culture - Preliminary NO GROWTH AFTER 48 HOURS Resulted 10/15/19 15:20 Sputum Gram Stain - Final Resulted 10/15/19 15:20 Sputum Culture - Preliminary Proteus Mirabilis Esbl Gram Negative Bacillus 2 Resulted 10/15/19 13:20 Urine,Clean Catch Urine Culture - Final Providencia Stuartii Complete Laboratory Tests Test 10/17/19 12:17 10/18/19 03:05 POC Whole Blood Glucose 116 MG/DL (74-106) H White Blood Count 17.4 K/UL (4.8-10.8) #H Red Blood Count 3.62 M/UL (4.20-5.40) L Hemoglobin 10.8 G/DL (12.0-16.0) L Hematocrit 33.5 % (37.0-47.0) L Mean Corpuscular Volume 93 FL (80-99) Mean Corpuscular Hemoglobin 30.0 PG (27.0-31.0) Mean Corpuscular Hemoglobin Concent 32.4 G/DL (32.0-36.0) Red Cell Distribution Width 14.3 % (11.6-14.8) Platelet Count 341 K/UL (150-450) Mean Platelet Volume 5.0 FL (6.5-10.1) L Neutrophils (%) (Auto) % (45.0-75.0) Lymphocytes (%) (Auto) % (20.0-45.0) Monocytes (%) (Auto) % (1.0-10.0) Eosinophils (%) (Auto) % (0.0-3.0) Basophils (%) (Auto) % (0.0-2.0) Differential Total Cells Counted 100 Neutrophils % (Manual) 91 % (45-75) H Lymphocytes % (Manual) 4 % (20-45) L Monocytes % (Manual) 5 % (1-10) Eosinophils % (Manual) 0 % (0-3) Basophils % (Manual) 0 % (0-2) Band Neutrophils 0 % (0-8) Nucleated Red Blood Cells 1 /100 WBC Platelet Estimate Adequate Platelet Morphology Normal Hypochromasia 1+ Anisocytosis 1+ Sodium Level 135 MMOL/L (136-145) L Potassium Level 3.2 MMOL/L (3.5-5.1) L Chloride Level 97 MMOL/L (98-107) L Carbon Dioxide Level 28 MMOL/L (21-32) Anion Gap 10 mmol/L (5-15) Blood Urea Nitrogen 49 mg/dL (7-18) H Creatinine 2.0 MG/DL (0.55-1.30) H Estimat Glomerular Filtration Rate 26.7 mL/min (>60) Glucose Level 98 MG/DL (74-106) Calcium Level 8.7 MG/DL (8.5-10.1) Phosphorus Level 2.5 MG/DL (2.5-4.9) Magnesium Level 2.6 MG/DL (1.8-2.4) H Total Bilirubin 0.4 MG/DL (0.2-1.0) Aspartate Amino Transf (AST/SGOT) 27 U/L (15-37) Alanine Aminotransferase (ALT/SGPT) 13 U/L (12-78) Alkaline Phosphatase 167 U/L (46-116) H C-Reactive Protein, Quantitative 5.2 mg/dL (0.00-0.90) H Pro-B-Type Natriuretic Peptide 49508 pg/mL (0-125) H Total Protein 6.9 G/DL (6.4-8.2) Albumin 1.8 G/DL (3.4-5.0) L Globulin 5.1 g/dL Albumin/Globulin Ratio 0.4 (1.0-2.7) L Current Medications Medications (Trade) Dose Ordered Sig/Penny Route PRN Reason Start Time Stop Time Status Last Admin Dose Admin Acetaminophen (Tylenol) 325 mg Q4H PRN GT Mild Pain (Pain Scale 1-3) 10/17/19 18:45 11/16/19 18:44 Acetaminophen (Tylenol) 325 mg Q6H PRN GT Temp >100.5 10/11/19 04:45 10/23/19 10:44 10/18/19 04:20 Ascorbic Acid (Vitamin C) 500 mg DAILY ORAL 10/11/19 09:00 11/05/19 08:59 10/18/19 08:31 Chlorhexidine Gluconate (Ling-Hex 2%) 1 applic DAILY@2000 TOPIC 10/11/19 20:00 12/22/19 19:59 10/17/19 20:45 Clonidine HCl (Catapres TTS-3) 1 patch QWEEK TDERMAL 10/14/19 12:00 01/12/20 11:59 10/14/19 11:51 Dextrose (Dextrose 50%) 25 ml Q30M PRN IV Hypoglycemia 10/11/19 04:30 01/03/20 18:29 Dextrose (Dextrose 50%) 50 ml Q30M PRN IV Hypoglycemia 10/11/19 04:30 01/03/20 18:29 Diltiazem HCl (Cardizem Tab) 90 mg Q8HR GT 10/16/19 14:00 11/09/19 11:59 Docusate Sodium (Colace) 100 mg Q8HR GT 10/14/19 14:01 11/13/19 14:00 10/17/19 05:20 Epoetin Gelacio (Epoetin Gelacio(ESRD on dialysis)) 10,000 unit MON-MON-MON SUBQ 10/14/19 21:00 01/12/20 20:59 10/16/19 21:09 Haloperidol Lactate (Haldol) 5 mg Q6H PRN IM Agitation 10/11/19 05:00 11/22/19 10:59 10/18/19 10:08 Heparin Sodium (Porcine) (Heparin 5000 units/ml) 5,000 units EVERY 12 HOURS SUBQ 10/11/19 09:00 10/30/19 08:59 10/18/19 08:33 Insulin Aspart (NovoLOG) Q6HR SUBQ 10/11/19 06:00 01/03/20 20:59 Lansoprazole (Prevacid) 30 mg Q12HR GT 10/11/19 09:00 10/27/19 20:59 10/18/19 08:31 Lisinopril (PriniviL) 20 mg BID GT 10/11/19 09:00 11/08/19 17:59 10/18/19 08:32 Metoclopramide HCl (Reglan) 5 mg EVERY 6 HOURS GT 10/11/19 06:00 11/08/19 11:59 10/18/19 05:12 Metoprolol Tartrate (Lopressor) 25 mg Q12HR GT 10/11/19 09:00 01/07/20 20:59 10/18/19 08:31 Minoxidil (Loniten) 2.5 mg Q8HR ORAL 10/11/19 06:00 01/08/20 13:59 10/18/19 05:12 Morphine Sulfate (Morphine Sulfate) 2 mg Q6H PRN IVP For Pain 10/16/19 09:45 10/23/19 09:44 10/18/19 07:43 Polyethylene Glycol (Miralax) 17 gm BEDTIME ORAL 10/11/19 21:00 10/31/19 20:59 10/16/19 20:30 Risperidone (RisperDAL) 2 mg BEDTIME ORAL 10/11/19 21:00 11/19/19 20:59 10/17/19 20:45 Sorbitol (sorbitoL) 30 ml EVERY 6 HOURS PRN GT Constipation 10/11/19 06:00 10/29/19 17:59 Vitamin B Complex/ Vit C/Folic Acid (Nephrovite) 1 tab DAILY ORAL 10/11/19 09:00 11/05/19 08:59 10/18/19 08:32 Zinc Sulfate (Zinc Sulfate) 220 mg DAILY ORAL 10/11/19 09:00 10/21/19 08:59 10/18/19 08:31 Doreen Nino M.D. Oct 18, 2019 12:06
--- NOTE | 2019-10-18 12:42 | Surgery Progress Note ---
Surgery Progress Note Subjective Symptoms: improved, tolerating diet, voiding well, passing flatus Objective Last 24 Hour Vital Signs Date Time Temp Pulse Resp B/P (MAP) Pulse Ox O2 Delivery O2 Flow Rate FiO2 10/18/19 11:16 56 20 40 10/18/19 09:19 62 27 40 10/18/19 08:32 123/59 10/18/19 08:31 65 123/59 10/18/19 08:00 Mechanical Ventilator Mechanical Ventilator Mechanical Ventilator 10/18/19 08:00 97.7 62 20 120/57 (78) 100 10/18/19 08:00 40 10/18/19 07:38 65 10/18/19 07:20 63 16 40 10/18/19 07:20 95 10/18/19 05:16 59 20 40 10/18/19 05:12 59 111/53 10/18/19 05:12 111/53 10/18/19 04:00 40 10/18/19 04:00 Mechanical Ventilator Mechanical Ventilator Mechanical Ventilator 10/18/19 04:00 66 10/18/19 04:00 98.2 59 20 111/53 (72) 100 10/18/19 02:53 67 20 40 10/18/19 00:39 72 22 40 10/18/19 00:00 Mechanical Ventilator Mechanical Ventilator Mechanical Ventilator 10/18/19 00:00 98.4 66 20 149/74 (99) 100 10/18/19 00:00 84 10/17/19 23:39 144/58 10/17/19 23:39 66 165/68 10/17/19 22:50 66 20 40 10/17/19 21:49 54 165/68 10/17/19 20:50 54 20 40 10/17/19 20:00 Mechanical Ventilator Mechanical Ventilator Mechanical Ventilator 10/17/19 20:00 98.3 53 20 165/68 (100) 100 10/17/19 20:00 40 10/17/19 19:36 58 10/17/19 18:57 54 20 40 10/17/19 16:00 97.9 60 20 155/78 (103) 100 10/17/19 16:00 53 10/17/19 16:00 Mechanical Ventilator Mechanical Ventilator Mechanical Ventilator 10/17/19 16:00 40 I&O Intake and Output 10/17/19 10/18/19 19:00 07:00 Intake Total 610 ml Output Total 3800 ml Balance -3190 ml Intake Free Water 130 ml Tube Feeding 480 ml Output Urine Total 800 ml Hemodialysis UF 3000 ml # Bowel Movements 3 1 Dressing: saturated Cardiovascular: RSR Respiratory: decreased breath sounds Abdomen: soft, non-tender, present bowel sounds Extremities: no tenderness, no cyanosis Laboratory Tests Test 10/18/19 03:05 White Blood Count 17.4 K/UL (4.8-10.8) #H Red Blood Count 3.62 M/UL (4.20-5.40) L Hemoglobin 10.8 G/DL (12.0-16.0) L Hematocrit 33.5 % (37.0-47.0) L Mean Corpuscular Volume 93 FL (80-99) Mean Corpuscular Hemoglobin 30.0 PG (27.0-31.0) Mean Corpuscular Hemoglobin Concent 32.4 G/DL (32.0-36.0) Red Cell Distribution Width 14.3 % (11.6-14.8) Platelet Count 341 K/UL (150-450) Mean Platelet Volume 5.0 FL (6.5-10.1) L Neutrophils (%) (Auto) % (45.0-75.0) Lymphocytes (%) (Auto) % (20.0-45.0) Monocytes (%) (Auto) % (1.0-10.0) Eosinophils (%) (Auto) % (0.0-3.0) Basophils (%) (Auto) % (0.0-2.0) Differential Total Cells Counted 100 Neutrophils % (Manual) 91 % (45-75) H Lymphocytes % (Manual) 4 % (20-45) L Monocytes % (Manual) 5 % (1-10) Eosinophils % (Manual) 0 % (0-3) Basophils % (Manual) 0 % (0-2) Band Neutrophils 0 % (0-8) Nucleated Red Blood Cells 1 /100 WBC Platelet Estimate Adequate Platelet Morphology Normal Hypochromasia 1+ Anisocytosis 1+ Sodium Level 135 MMOL/L (136-145) L Potassium Level 3.2 MMOL/L (3.5-5.1) L Chloride Level 97 MMOL/L (98-107) L Carbon Dioxide Level 28 MMOL/L (21-32) Anion Gap 10 mmol/L (5-15) Blood Urea Nitrogen 49 mg/dL (7-18) H Creatinine 2.0 MG/DL (0.55-1.30) H Estimat Glomerular Filtration Rate 26.7 mL/min (>60) Glucose Level 98 MG/DL (74-106) Calcium Level 8.7 MG/DL (8.5-10.1) Phosphorus Level 2.5 MG/DL (2.5-4.9) Magnesium Level 2.6 MG/DL (1.8-2.4) H Total Bilirubin 0.4 MG/DL (0.2-1.0) Aspartate Amino Transf (AST/SGOT) 27 U/L (15-37) Alanine Aminotransferase (ALT/SGPT) 13 U/L (12-78) Alkaline Phosphatase 167 U/L (46-116) H C-Reactive Protein, Quantitative 5.2 mg/dL (0.00-0.90) H Pro-B-Type Natriuretic Peptide 99076 pg/mL (0-125) H Total Protein 6.9 G/DL (6.4-8.2) Albumin 1.8 G/DL (3.4-5.0) L Globulin 5.1 g/dL Albumin/Globulin Ratio 0.4 (1.0-2.7) L Plan Problems: (1) Anemia (2) Proteinuria (3) UTI (urinary tract infection) (4) ARF (acute renal failure) (5) ACS (acute coronary syndrome) (6) Respiratory failure, acute and chronic (7) HCAP (healthcare-associated pneumonia) (8) Abrasion of lip, initial encounter (9) COPD with exacerbation (10) Hypokalemia (11) Sepsis Assessment & Plan: Leukocytosis, anemia, abnormal labs. Renal insufficiency potentially dehydrated Abnormal LFTs alk phos elevated Urine noted significant bacteria likely UTI etiology Wound stable still requiring local care IV antibiotics per infectious disease Discussed with traffic manager Dr. Berkowitz air mattress turn q2h nutritional tf will follow with recs thank you CT noted pending VQ scan - noted poor study low prob PE work respiratory increasing needs sedation weaning vent settings 80% peep 10 now comfortable Hd line in receiving HD plan for left thora 09/26 cont weaning vent as tolerated improving labs improved placement d/c planning (12) Chronic respiratory failure (13) Ascites (14) Bacteremia (15) Hypernatremia (16) Pleural effusion (17) Pacemaker (18) Aortic dissection, thoracic (19) Tracheostomy in place Assessment & Plan: trach stable no bleeding currently likely tongue etiology of mild oozing currently hemostatic without trauma (20) Feeding by G-tube Assessment & Plan: okay to resume tube feeds via g tube patent and functional dressings okay DAILY ESTIMATED NEEDS: Needs based on Pulmonary, wound 49kg 30-35 kcals/kg [id number] total kcals 1.25-2 g protein/kg 61-98 g total protein Fluid per MD NUTRITION DIAGNOSIS: * Swallowing difficulty R/T dysphagia, respiratory status as evidenced by vent dep via T-collar, GT Dep. (CURRENT TF: Nepro @45ml/hr x 24 hrs) ENTERAL NUTRITION RECOMMENDATIONS: Nepro @ 40ml/hr x 24 hrs to provide 960ml, 1728kcal, 78g prot, 698ml free water * Rec LOWER current rate to 40ml/hr for 24 hrs run. * Water flush of 100ml q 6 hrs per orders * HOB over 30 degrees ADDITIONAL RECOMMENDATIONS: * Per SNF: HT=63", AN=885crb -> rec calibrated bedscale wt * Pt on Nepro PHOTO STYLIST, possible h/o electrolyte imbalance -> monitor lytes closely (K low at this time) * HELMET HAT PUNCHER eval for oral grat if appropriate * F/up w/ WC eval-> add FRANKLIN in 4oz H20 BID via GT (21) JAVIER (acute kidney injury) (22) Elevated alkaline phosphatase level Assessment & Plan: noted on labs trend US ordered will follow with recs thank you (23) Acute encephalopathy (24) GT CLOGGED (25) Sacral decubitus ulcer, stage IV Assessment & Plan: Pt presented on admission with Full thickness stage 4 Sacral Pressure injury which extends into R gluteal cheek. Base of wound is granular with bone exposure at base of sacrococcygeal.(L)10.5cm x (W06.5cm x (D) 2.8cm , undermining 11-3 by 3.6cm @12 o'clock. small amt serosanguineous exudate noted . [place] epithelial along edges bordered by darker skin tone without erythema. Resolving Pressure injury L ischium. Base of wound is 95% pink epithelial ,5% noni at center base of wound. No exudate noted. Both heels are boggy with non-Blanching erythema. Tx.plan: Cleanse Sacral wound with Saline. Loosely pack with Hydrogel impregnated Kerlix. Apply Moisture Barrier Periwound. Cover with Optifoam drsg Daily and prn. Apply Moisture Barrier paste to L Ischium. Cover with Optifoam drsg. Changee very 3 days and prn. Apply Cavilon Skin Barrier to both heels. Cover each heel with Optifoam drsgs. Change every 7 days and prn. Reposition at least every 2hours or as tolerated. Off-load heels with pillow. APM/MAXWELL Mattress overlay. Sacral wound resolving. Wound is smaller in size with less depth and undermining (L)8.5cm x (W)5cm x (D)1.3cm, undermining clockwise 11-3 by 2.1cm @ 12o'clock. Base of wound is pink and moist, small area of bone exposure at base. Small amt. seropurulent exudate noted. No odor noted. Periwound without evidence of further skin breakdown noted. Wound Tx. are effective and continued as ordered. Al wound prevention protocols continued as care-planned. Tx.Plan:Cleanse sacral wound with Saline. Loosely pack with Hydrogel impregnated kerlix. Apply Moisture Barrier Paste periwound. Cover with Optifoam drsg Daily and prn. Apply Cavilon Skin Barrier to both heels and malleoli. Cover eachsite with Optifoam drsgs. Change every 7 days and prn. Reposition at least every 2hours or as tolerated. Off-load heels with pillow. APM/Maxwell Mattress overlay. Lane Saavedra Oct 18, 2019 12:42
[2019-10-18] MEDS: Meropenem 500 MG in NS 55 ML IVPB SCH (13:07)
--- NOTE | 2019-10-18 14:30 | Hematology/Onc Progress Note ---
Assessment/Plan Assessment/Plan Assessment and Recs # Leukocytosis, now with gram positive bacteremias well as pna noted --> historically --> PPM site (pocket) infection (redness and pain, bacteremia) and likely pocket abscess - no vegetation seen on ABBIE --> is s'p pm removal and also pocket infection is better --> per cards recs in re to tach/davis --> wbc 15-->19-->17-->15-->13->12-->13-->12>13-->18-->9-->7-->16-->17 --> ABX cefepime/levaquin--> vanc/angelo-> daptomycin-->Angelo --> ID recs are noted # Anemia of chronic disease due to underlying chronic medical issues, multifactorial --> Anemia workup has been reviewed, cw acd --> No evidence of hemolysis is noted, peripheral smear has been reviewed. --> Hgb goal >7. Transfuse prn. --> Epogen started --> Medications have been reviewed --> low threshold for gi evaluation in case has occult + --> hgb 7.1-->7.8-->8.9->9.2-->8.5-->9.7-->10-->8.8-->9.6-->8.7->8.6-->7.2->8.7- >9.1-->9.2-->9-->8.7-->9.3-->9.8-->10->10.3 --> 1 unit prbc 09/27 # Thrombocytois is likely reactive process, is s/p infection --> plt trend 610k-->706k-->354 --> p smear reviewed # Acute hypoxic respiratory failure s/p intubation 11/23- ?ARDS --> on vent/trach # Gram positive bacteremia- real bacteremia- 2ry to above and probable PNA --> per id care # JAVIER initially >2 --> on ivfs # Elevated d-dimer --> venous duplex and v/q scan --> negative results # Dysphagia s/p peg # Thoracic aortic dissection s/p repair early 2017 # Psychiatric history on ativan/haldol # [place] resident # Dvt ppx --> heparin sq The timing of this note does not necessarily reflect the time of the patient was seen. Greatly appreciate consultation. Subjective Cardiovascular: Denies: no symptoms, chest pain, edema, irregular heart rate, lightheadedness, palpitations, syncope, other Respiratory: Denies: no symptoms, cough, shortness of breath, SOB with excertion, SOB at rest, sputum, wheezing, other Genitourinary: Denies: no symptoms, burning, discharge, frequency, flank pain, hematuria, incontinence, pain, urgency, other Neurologic/Psychiatric: Denies: no symptoms, anxiety, depressed, emotional problems, headache, numbness, paresthesia, pre-existing deficit, seizure, tingling, tremors, weakness, other Endocrine: Denies: no symptoms, excessive sweating, flushing, intolerance to cold, intolerance to heat, increased hunger, increased thirst, increased urine, unexplained weight gain, unexplained weight loss, other Allergies: Coded Allergies: No Known Allergies (Unverified , 10/10/17) Subjective 09/16 on vent now, consulted in am pulm, on vent setting, labs noted, hep sq 09/17 meds noted, cbc noted, labs noted, no bleeding 09/18 is to undergo potential v/q scan given abg, labs noted, resless, on ativan, to get haldol today, roman ramesh 09/19 remains agitated, covering, with sacral wound seeping, likely cause of anemia, roman ramesh 09/26 restless, remains agitated, gtube ripped, eval with rn, and almai consulted 09/27 remains on vent, agitated, seen by gi, hgb low, roman George to transfuse 1 unit prbc 09/28 meds noted, no bleeding, on vent, s/p blood tranfusion, cbc pending, roman ramesh 09/29 remains in the icu, roman rn in the am, agitated, on versed, fentanyl, restraints 09/30 in icu, trach to vent, on gtube feeds, fentanyl, agitated 10/01 in icu, roman Ayoub rn, no bleeding, sleeping, labs noted, hgb >9 10/02 sedated in icu, is on vent, roman rn, more alert and more conversive with face grimaces 10/03 labs have been reviewed, no bleeding, icu, meds reviewed, on fentanyl and versed, to consult psych 10/05 remains on fentanyl, also with restraints, no bleeding, cbc ordered 10/06 remains obtunded, though reactive when proded, labs pending from am 10/07 hypertensive, asleep, no bleeding, roman rn, no major night sweats\ 10/08 formula leaking from gtube site, no bleeding, with some minor residual 10/09 remains on gtube feeds, on lactulose, no major changes, confused but nods 10/10 labs reviewed, lactulose discontinued as having diarrhea, no bleeding 10/12 meds reviewed, no bleeding, heparin given, roman Starr rn in am, comfortable 10/13 labs are noted, no bleeding, cbc is ordered for today, somewhat agitated 10/14 has been complaining of pain and frowning, no bleeding, hgb reviewed 10/15 hgb 10.4, no bleeding, stool is hard, difficult to collect for c.diff 10/16 restless, agitated overnight, getting haldol prn, roman rn at bedside 10/17 labs are noted, no bleeding, meds reviewed, wbc 17k, on abx Objective Objective Current Medications Medications (Trade) Dose Ordered Sig/Penny Route PRN Reason Start Time Stop Time Status Last Admin Dose Admin Acetaminophen (Tylenol) 325 mg Q4H PRN GT Mild Pain (Pain Scale 1-3) 10/17/19 18:45 11/16/19 18:44 10/18/19 12:21 Acetaminophen (Tylenol) 325 mg Q6H PRN GT Temp >100.5 10/11/19 04:45 10/23/19 10:44 10/18/19 04:20 Ascorbic Acid (Vitamin C) 500 mg DAILY ORAL 10/11/19 09:00 11/05/19 08:59 10/18/19 08:31 Chlorhexidine Gluconate (Ling-Hex 2%) 1 applic DAILY@1999 TOPIC 10/11/19 20:00 12/22/19 19:59 10/17/19 20:45 Clonidine HCl (Catapres TTS-3) 1 patch QWEEK TDERMAL 10/14/19 12:00 01/12/20 11:59 10/14/19 11:51 Dextrose (Dextrose 50%) 25 ml Q30M PRN IV Hypoglycemia 10/11/19 04:30 01/03/20 18:29 Dextrose (Dextrose 50%) 50 ml Q30M PRN IV Hypoglycemia 10/11/19 04:30 01/03/20 18:29 Diltiazem HCl (Cardizem Tab) 90 mg Q8HR GT 10/16/19 14:00 11/09/19 11:59 Docusate Sodium (Colace) 100 mg Q8HR GT 10/14/19 14:01 11/13/19 14:00 10/17/19 05:20 Epoetin Gelacio (Epoetin Gelacio(ESRD on dialysis)) 10,000 unit MON- SUBQ 10/14/19 21:00 01/12/20 20:59 10/16/19 21:09 Haloperidol Lactate (Haldol) 5 mg Q6H PRN IM Agitation 10/11/19 05:00 11/22/19 10:59 10/18/19 10:08 Heparin Sodium (Porcine) (Heparin 5000 units/ml) 5,000 units EVERY 12 HOURS SUBQ 10/11/19 09:00 10/30/19 08:59 10/18/19 08:33 Insulin Aspart (NovoLOG) Q6HR SUBQ 10/11/19 06:00 01/03/20 20:59 Lansoprazole (Prevacid) 30 mg Q12HR GT 10/11/19 09:00 10/27/19 20:59 10/18/19 08:31 Lisinopril (PriniviL) 20 mg BID GT 10/11/19 09:00 11/08/19 17:59 10/18/19 08:32 Meropenem 500 mg/ Sodium Chloride 55 ml @ 110 mls/hr Q24H IVPB 10/18/19 13:00 10/23/19 12:59 10/18/19 13:07 Metoclopramide HCl (Reglan) 5 mg EVERY 6 HOURS GT 10/11/19 06:00 11/08/19 11:59 10/18/19 12:21 Metoprolol Tartrate (Lopressor) 25 mg Q12HR GT 10/11/19 09:00 01/07/20 20:59 10/18/19 08:31 Minoxidil (Loniten) 2.5 mg Q8HR ORAL 10/11/19 06:00 01/08/20 13:59 10/18/19 05:12 Morphine Sulfate (Morphine Sulfate) 2 mg Q6H PRN IVP For Pain 10/16/19 09:45 10/23/19 09:44 10/18/19 14:19 Polyethylene Glycol (Miralax) 17 gm BEDTIME ORAL 10/11/19 21:00 10/31/19 20:59 10/16/19 20:30 Risperidone (RisperDAL) 2 mg BEDTIME ORAL 10/11/19 21:00 11/19/19 20:59 10/17/19 20:45 Sorbitol (sorbitoL) 30 ml EVERY 6 HOURS PRN GT Constipation 10/11/19 06:00 10/29/19 17:59 Vitamin B Complex/ Vit C/Folic Acid (Nephrovite) 1 tab DAILY ORAL 10/11/19 09:00 11/05/19 08:59 10/18/19 08:32 Zinc Sulfate (Zinc Sulfate) 220 mg DAILY ORAL 10/11/19 09:00 10/21/19 08:59 10/18/19 08:31 Last 24 Hour Vital Signs Date Time Temp Pulse Resp B/P (MAP) Pulse Ox O2 Delivery O2 Flow Rate FiO2 10/18/19 12:41 56 20 40 10/18/19 12:00 40 10/18/19 12:00 55 10/18/19 12:00 97.9 54 20 130/59 (82) 100 10/18/19 12:00 Mechanical Ventilator Mechanical Ventilator Mechanical Ventilator 10/18/19 11:16 56 20 40 10/18/19 09:19 62 27 40 10/18/19 08:32 123/59 10/18/19 08:31 65 123/59 10/18/19 08:00 Mechanical Ventilator Mechanical Ventilator Mechanical Ventilator 10/18/19 08:00 97.7 62 20 120/57 (78) 100 10/18/19 08:00 40 10/18/19 07:38 65 10/18/19 07:20 63 16 40 10/18/19 07:20 95 10/18/19 05:16 59 20 40 10/18/19 05:12 59 111/53 10/18/19 05:12 111/53 10/18/19 04:00 40 10/18/19 04:00 Mechanical Ventilator Mechanical Ventilator Mechanical Ventilator 10/18/19 04:00 66 10/18/19 04:00 98.2 59 20 111/53 (72) 100 10/18/19 02:53 67 20 40 10/18/19 00:39 72 22 40 10/18/19 00:00 Mechanical Ventilator Mechanical Ventilator Mechanical Ventilator 10/18/19 00:00 98.4 66 20 149/74 (99) 100 10/18/19 00:00 84 10/17/19 23:39 144/58 10/17/19 23:39 66 165/68 10/17/19 22:50 66 20 40 10/17/19 21:49 54 165/68 10/17/19 20:50 54 20 40 10/17/19 20:00 Mechanical Ventilator Mechanical Ventilator Mechanical Ventilator 10/17/19 20:00 98.3 53 20 165/68 (100) 100 10/17/19 20:00 40 10/17/19 19:36 58 10/17/19 18:57 54 20 40 10/17/19 16:00 97.9 60 20 155/78 (103) 100 10/17/19 16:00 53 10/17/19 16:00 Mechanical Ventilator Mechanical Ventilator Mechanical Ventilator 10/17/19 16:00 40 10/17/19 12:00 40 10/17/19 12:00 Mechanical Ventilator Mechanical Ventilator Mechanical Ventilator 10/17/19 12:00 97.9 62 20 145/62 (89) 100 10/17/19 11:58 62 10/17/19 11:02 62 20 40 10/17/19 08:41 66 21 40 10/17/19 08:00 97.7 71 20 159/77 (104) 100 10/17/19 08:00 40 10/17/19 08:00 72 10/17/19 08:00 Mechanical Ventilator Mechanical Ventilator Mechanical Ventilator 10/17/19 07:30 40 10/17/19 07:24 98 10/17/19 07:14 66 21 40 40 10/17/19 05:50 98.2 10/17/19 05:20 152/73 10/17/19 05:09 58 142/65 10/17/19 04:37 65 21 40 10/17/19 04:00 40 10/17/19 04:00 Mechanical Ventilator Mechanical Ventilator Mechanical Ventilator 10/17/19 04:00 98.2 56 20 135/68 (90) 99 10/17/19 03:27 62 10/17/19 02:55 68 21 40 10/17/19 00:43 55 20 40 10/17/19 00:00 98.2 57 20 142/66 (91) 99 10/17/19 00:00 Mechanical Ventilator Mechanical Ventilator Mechanical Ventilator 10/17/19 00:00 40 10/16/19 23:33 58 10/16/19 22:36 57 20 40 10/16/19 21:09 141/68 10/16/19 21:03 58 141/68 10/16/19 20:33 59 20 40 10/16/19 20:28 58 138/69 10/16/19 20:00 Mechanical Ventilator Mechanical Ventilator Mechanical Ventilator 10/16/19 20:00 40 10/16/19 20:00 98.0 58 20 138/69 (92) 98 10/16/19 19:09 60 10/16/19 18:35 59 20 40 10/16/19 17:42 135/66 10/16/19 17:08 57 20 40 10/16/19 16:00 40 10/16/19 16:00 98.1 58 20 135/66 (89) 96 10/16/19 16:00 65 10/16/19 16:00 Mechanical Ventilator Mechanical Ventilator Mechanical Ventilator 10/16/19 14:43 63 25 40 Intake and Output 10/17/19 10/18/19 19:00 07:00 Intake Total 610 ml Output Total 3800 ml Balance -3190 ml Intake Free Water 130 ml Tube Feeding 480 ml Output Urine Total 800 ml Hemodialysis UF 3000 ml # Bowel Movements 3 1 Labs Test 10/15/19 17:29 10/15/19 23:18 10/16/19 02:40 10/16/19 05:06 POC Whole Blood Glucose 99 MG/DL (74-106) White Blood Count 8.3 K/UL (4.8-10.8) Red Blood Count 3.46 M/UL (4.20-5.40) Hemoglobin 10.4 G/DL (12.0-16.0) Hematocrit 32.4 % (37.0-47.0) Mean Corpuscular Volume 94 FL (80-99) Mean Corpuscular Hemoglobin 30.1 PG (27.0-31.0) Mean Corpuscular Hemoglobin Concent 32.2 G/DL (32.0-36.0) Red Cell Distribution Width 14.9 % (11.6-14.8) Platelet Count 371 K/UL (150-450) Mean Platelet Volume 4.8 FL (6.5-10.1) Neutrophils (%) (Auto) 70.7 % (45.0-75.0) Lymphocytes (%) (Auto) 17.9 % (20.0-45.0) Monocytes (%) (Auto) 6.4 % (1.0-10.0) Eosinophils (%) (Auto) 4.3 % (0.0-3.0) Basophils (%) (Auto) 0.7 % (0.0-2.0) Sodium Level 136 MMOL/L (136-145) Potassium Level 3.7 MMOL/L (3.5-5.1) Chloride Level 100 MMOL/L (98-107) Carbon Dioxide Level 27 MMOL/L (21-32) Anion Gap 9 mmol/L (5-15) Blood Urea Nitrogen 76 mg/dL (7-18) Creatinine 2.7 MG/DL (0.55-1.30) Estimat Glomerular Filtration Rate 18.9 mL/min (>60) Glucose Level 112 MG/DL (74-106) Calcium Level 8.8 MG/DL (8.5-10.1) Phosphorus Level 3.7 MG/DL (2.5-4.9) Magnesium Level 2.8 MG/DL (1.8-2.4) Total Bilirubin 0.4 MG/DL (0.2-1.0) Aspartate Amino Transf (AST/SGOT) 21 U/L (15-37) Alanine Aminotransferase (ALT/SGPT) 12 U/L (12-78) Alkaline Phosphatase 150 U/L (46-116) Total Protein 6.3 G/DL (6.4-8.2) Albumin 1.6 G/DL (3.4-5.0) Globulin 4.7 g/dL Albumin/Globulin Ratio 0.3 (1.0-2.7) Test 10/16/19 11:54 10/16/19 16:06 10/16/19 23:01 10/17/19 03:00 POC Whole Blood Glucose 126 MG/DL (74-106) 116 MG/DL (74-106) White Blood Count 9.7 K/UL (4.8-10.8) Red Blood Count 3.38 M/UL (4.20-5.40) Hemoglobin 10.3 G/DL (12.0-16.0) Hematocrit 31.4 % (37.0-47.0) Mean Corpuscular Volume 93 FL (80-99) Mean Corpuscular Hemoglobin 30.5 PG (27.0-31.0) Mean Corpuscular Hemoglobin Concent 32.8 G/DL (32.0-36.0) Red Cell Distribution Width 15.0 % (11.6-14.8) Platelet Count 391 K/UL (150-450) Mean Platelet Volume 4.9 FL (6.5-10.1) Neutrophils (%) (Auto) 73.3 % (45.0-75.0) Lymphocytes (%) (Auto) 18.3 % (20.0-45.0) Monocytes (%) (Auto) 5.8 % (1.0-10.0) Eosinophils (%) (Auto) 1.8 % (0.0-3.0) Basophils (%) (Auto) 0.8 % (0.0-2.0) Test 10/17/19 04:48 10/17/19 12:17 10/18/19 03:05 POC Whole Blood Glucose 115 MG/DL (74-106) 116 MG/DL (74-106) White Blood Count 17.4 K/UL (4.8-10.8) Red Blood Count 3.62 M/UL (4.20-5.40) Hemoglobin 10.8 G/DL (12.0-16.0) Hematocrit 33.5 % (37.0-47.0) Mean Corpuscular Volume 93 FL (80-99) Mean Corpuscular Hemoglobin 30.0 PG (27.0-31.0) Mean Corpuscular Hemoglobin Concent 32.4 G/DL (32.0-36.0) Red Cell Distribution Width 14.3 % (11.6-14.8) Platelet Count 341 K/UL (150-450) Mean Platelet Volume 5.0 FL (6.5-10.1) Neutrophils (%) (Auto) % (45.0-75.0) Lymphocytes (%) (Auto) % (20.0-45.0) Monocytes (%) (Auto) % (1.0-10.0) Eosinophils (%) (Auto) % (0.0-3.0) Basophils (%) (Auto) % (0.0-2.0) Differential Total Cells Counted 100 Neutrophils % (Manual) 91 % (45-75) Lymphocytes % (Manual) 4 % (20-45) Monocytes % (Manual) 5 % (1-10) Eosinophils % (Manual) 0 % (0-3) Basophils % (Manual) 0 % (0-2) Band Neutrophils 0 % (0-8) Nucleated Red Blood Cells 1 /100 WBC Platelet Estimate Adequate Platelet Morphology Normal Hypochromasia 1+ Anisocytosis 1+ Sodium Level 135 MMOL/L (136-145) Potassium Level 3.2 MMOL/L (3.5-5.1) Chloride Level 97 MMOL/L (98-107) Carbon Dioxide Level 28 MMOL/L (21-32) Anion Gap 10 mmol/L (5-15) Blood Urea Nitrogen 49 mg/dL (7-18) Creatinine 2.0 MG/DL (0.55-1.30) Estimat Glomerular Filtration Rate 26.7 mL/min (>60) Glucose Level 98 MG/DL (74-106) Calcium Level 8.7 MG/DL (8.5-10.1) Phosphorus Level 2.5 MG/DL (2.5-4.9) Magnesium Level 2.6 MG/DL (1.8-2.4) Total Bilirubin 0.4 MG/DL (0.2-1.0) Aspartate Amino Transf (AST/SGOT) 27 U/L (15-37) Alanine Aminotransferase (ALT/SGPT) 13 U/L (12-78) Alkaline Phosphatase 167 U/L (46-116) C-Reactive Protein, Quantitative 5.2 mg/dL (0.00-0.90) Pro-B-Type Natriuretic Peptide 62878 pg/mL (0-125) Total Protein 6.9 G/DL (6.4-8.2) Albumin 1.8 G/DL (3.4-5.0) Globulin 5.1 g/dL Albumin/Globulin Ratio 0.4 (1.0-2.7) Height (Feet): 5 Height (Inches): 5.00 Weight (Pounds): 144 Objective Physical Exam: Vitals: reviewed General: NAD HEENT: nc, at Neck: supple ++tracn/vent Chest: clear breath sounds bilaterally Cardiovascular: RRR, no s3, s4 Abdomen: soft, nontender, nd +gtube Extremities: no cce, normal range of motion Neuro: alert Evan Muhammad MD Oct 18, 2019 14:30
[2019-10-18 16:00] VITALS: BP 133/60
--- NOTE | 2019-10-18 16:44 | Diagnostic Imaging Report ---
Indication: Cough Technique: One view of the chest Comparison: 10/15/2019 Findings: Bilateral pleural effusions are again demonstrated. Interstitial and airspace opacities appear somewhat improved but persistent. Left jugular dialysis catheter again demonstrated. Tracheostomy and median sternotomy sutures again demonstrated. Impression: Bilateral pleural effusions, unchanged. Slightly improved parenchymal infiltrates versus edema
--- NOTE | 2019-10-18 16:46 | Diagnostic Imaging Report ---
Indication: Shortness of breath Technique: One view of the chest Comparison: 10/17/2019 Findings: Patient is rotated to the right. There are bilateral pleural effusions again demonstrated. Mild interstitial and airspace congestion is unchanged. Tracheostomy is again demonstrated. Left jugular dialysis catheter is again demonstrated Impression: Unchanged, over one day, findings as above.
--- NOTE | 2019-10-18 19:07 | General Progress Note ---
Assessment/Plan Status: stable, other - Mood has improved he is able to smile there is no continuous tearing overall she looks better today energy looking the last several days continue with the same management Status Narrative Patient was put today again on BiPAP machine but patient again could not tolerate more than 30 minutes being of the respirator. She developed leukocytosis fever abdominal x-ray today and was placed on imipenem 500 mg IV piggyback every 12 she is also scheduled to undergo dialysis on October 19 Repeat laboratory tests will be done in a.m. LUCAS DONG MD Subjective Constitutional: Reports: no symptoms, weakness HEENT: Reports: no symptoms Cardiovascular: Reports: other - No chest pain shortness of breath palpitation or dizziness Respiratory: Reports: other - No cough wheezing or expectoration Gastrointestinal/Abdominal: Reports: no symptoms Genitourinary: Reports: no symptoms Neurologic/Psychiatric: Reports: anxiety, depressed, other - Less depressed and less anxious than yesterday and was able to maintain a conversation for 10 minutes regarding her medical condition and her wishes to be discharged Allergies: Coded Allergies: No Known Allergies (Unverified , 10/10/17) Objective Last 24 Hour Vital Signs Date Time Temp Pulse Resp B/P (MAP) Pulse Ox O2 Delivery O2 Flow Rate FiO2 10/18/19 18:04 128/56 10/18/19 17:08 53 24 40 10/18/19 16:00 Mechanical Ventilator Mechanical Ventilator Mechanical Ventilator 10/18/19 16:00 97.8 54 20 133/60 (84) 100 10/18/19 16:00 51 10/18/19 16:00 40 10/18/19 15:09 54 20 40 10/18/19 12:41 56 20 40 10/18/19 12:00 40 10/18/19 12:00 55 10/18/19 12:00 97.9 54 20 130/59 (82) 100 10/18/19 12:00 Mechanical Ventilator Mechanical Ventilator Mechanical Ventilator 10/18/19 11:16 56 20 40 10/18/19 09:19 62 27 40 10/18/19 08:32 123/59 10/18/19 08:31 65 123/59 10/18/19 08:00 Mechanical Ventilator Mechanical Ventilator Mechanical Ventilator 10/18/19 08:00 97.7 62 20 120/57 (78) 100 10/18/19 08:00 40 10/18/19 07:38 65 10/18/19 07:20 63 16 40 10/18/19 07:20 95 10/18/19 05:16 59 20 40 10/18/19 05:12 59 111/53 10/18/19 05:12 111/53 10/18/19 04:00 40 10/18/19 04:00 Mechanical Ventilator Mechanical Ventilator Mechanical Ventilator 10/18/19 04:00 66 10/18/19 04:00 98.2 59 20 111/53 (72) 100 10/18/19 02:53 67 20 40 10/18/19 00:39 72 22 40 10/18/19 00:00 Mechanical Ventilator Mechanical Ventilator Mechanical Ventilator 10/18/19 00:00 98.4 66 20 149/74 (99) 100 10/18/19 00:00 84 10/17/19 23:39 144/58 10/17/19 23:39 66 165/68 10/17/19 22:50 66 20 40 10/17/19 21:49 54 165/68 10/17/19 20:50 54 20 40 10/17/19 20:00 Mechanical Ventilator Mechanical Ventilator Mechanical Ventilator 10/17/19 20:00 98.3 53 20 165/68 (100) 100 10/17/19 20:00 40 10/17/19 19:36 58 Intake and Output 10/17/19 10/18/19 19:00 07:00 Intake Total 610 ml Output Total 3800 ml Balance -3190 ml Intake Free Water 130 ml Tube Feeding 480 ml Output Urine Total 800 ml Hemodialysis UF 3000 ml # Bowel Movements 3 1 Laboratory Tests 10/18/19 03:05: White Blood Count 17.4#H, Red Blood Count 3.62L, Hemoglobin 10.8L, Hematocrit 33.5L, Mean Corpuscular Volume 93, Mean Corpuscular Hemoglobin 30.0, Mean Corpuscular Hemoglobin Concent 32.4, Red Cell Distribution Width 14.3, Platelet Count 341, Mean Platelet Volume 5.0L, Neutrophils (%) (Auto) , Lymphocytes (%) ( Auto) , Monocytes (%) (Auto) , Eosinophils (%) (Auto) , Basophils (%) (Auto) , Differential Total Cells Counted 100, Neutrophils % (Manual) 91H, Lymphocytes % (Manual) 4L, Monocytes % (Manual) 5, Eosinophils % (Manual) 0, Basophils % ( Manual) 0, Band Neutrophils 0, Nucleated Red Blood Cells 1, Platelet Estimate Adequate, Platelet Morphology Normal, Hypochromasia 1+, Anisocytosis 1+, Sodium Level 135L, Potassium Level 3.2L, Chloride Level 97L, Carbon Dioxide Level 28, Anion Gap 10, Blood Urea Nitrogen 49H, Creatinine 2.0H, Estimat Glomerular Filtration Rate 26.7, Glucose Level 98, Calcium Level 8.7, Phosphorus Level 2.5 , Magnesium Level 2.6H, Total Bilirubin 0.4, Aspartate Amino Transf (AST/SGOT) 27, Alanine Aminotransferase (ALT/SGPT) 13, Alkaline Phosphatase 167H, C- Reactive Protein, Quantitative 5.2H, Pro-B-Type Natriuretic Peptide 00193M, Total Protein 6.9, Albumin 1.8L, Globulin 5.1, Albumin/Globulin Ratio 0.4L Height (Feet): 5 Height (Inches): 5.00 Weight (Pounds): 144 General Appearance: no apparent distress, alert EENT: normal ENT inspection Neck: supple Cardiovascular: normal rate, regular rhythm, no gallop/murmur, no JVD Respiratory/Chest: lungs clear, normal breath sounds, no respiratory distress Abdomen: normal bowel sounds, non tender, soft, no organomegaly, no mass Extremities: non-tender, other - Severe lower extremity muscle wasting Lucas Dong MD Oct 18, 2019 19:07
[2019-10-18 20:00] VITALS: BP 133/60
[2019-10-18] MEDS: Dyna-Hex 2% Top Sol 2oz TOPIC SCH (20:07)
[2019-10-18] MEDS: Miralax 17gm pkt ORAL SCH (20:40)
[2019-10-18] MEDS: Epoetin Alfa-EPBX(ESRD on dialysis)10,000 unit/ml vial SUBQ SCH (21:09)
[2019-10-19] VITALS: BP 140/61
[2019-10-19] MEDS: Metoclopramide 10mg/10ml Liq GT SCH ×4 (00:12→17:22)
[2019-10-19] MEDS: Haloperidol 5mg/ml Inj IM PRN ×3 (00:50→15:57)
[2019-10-19 04:00] VITALS: BP 138/57
[2019-10-19] MEDS: Docusate 100mg/10ml Liq GT SCH ×3 (04:29→21:19)
[2019-10-19 04:31] LABS: BASOPHILS % (AUTO) 0.9 % (0.0-2.0); EOSINOPHILS % (AUTO) 3.7 % (0.0-3.0); HEMATOCRIT 30.6 % (37.0-47.0); LYMPHOCYTES % (AUTO) 16.3 % (20.0-45.0); MEAN CORPUSCULAR VOLUME 93 FL (80-99); NEUTROPHILS % (AUTO) 72.2 % (45.0-75.0); PLATELET COUNT 334 K/UL (150-450); RED CELL DISTRIBUTION WIDTH 14.9 % (11.6-14.8); WHITE BLOOD COUNT 11.7 K/UL (4.8-10.8)
[2019-10-19] MEDS: dilTIAZem HCl 90mg tab GT SCH ×3 (04:42→21:19)
[2019-10-19 04:54] LABS: ALANINE AMINOTRANSFERASE 9 U/L (12-78); ALBUMIN 1.7 G/DL (3.4-5.0); ALBUMIN/GLOBULIN RATIO 0.4 (1.0-2.7); ALKALINE PHOSPHATASE 156 U/L (46-116); ANION GAP 8 mmol/L (5-15); ASPARTATE AMINO TRANSFERASE 24 U/L (15-37); BILIRUBIN,TOTAL 0.3 MG/DL (0.2-1.0); BLOOD UREA NITROGEN 62 mg/dL (7-18); CALCIUM 8.5 MG/DL (8.5-10.1); CARBON DIOXIDE 29 MMOL/L (21-32); CHLORIDE 97 MMOL/L (98-107); CREATININE 2.3 MG/DL (0.55-1.30); PHOSPHORUS 4.7 MG/DL (2.5-4.9); POTASSIUM 3.5 MMOL/L (3.5-5.1); SODIUM 134 MMOL/L (136-145)
[2019-10-19] MEDS: Minoxidil 2.5mg tab ORAL SCH ×3 (05:27→21:43)
[2019-10-19] MEDS: NovoLOG Insulin Flexpen SUBQ SCH ×4 (06:00→17:23)
[2019-10-19] MEDS: Morphine Sulfate 2mg/ml Inj(IV/IM USE ONLY) IVP PRN ×2 (07:56→14:23)
[2019-10-19 08:00] VITALS: BP 142/65
--- NOTE | 2019-10-19 08:01 | General Progress Note ---
Assessment/Plan Problem List: (1) S/P aortic dissection repair ICD Codes: Z98.890 - Other specified postprocedural states SNOMED: 823725000, 762706266 (2) Sacral decubitus ulcer, stage IV ICD Codes: L89.154 - Pressure ulcer of sacral region, stage 4 SNOMED: 181826223, 019152866 (3) Anemia ICD Codes: D64.9 - Anemia, unspecified SNOMED: 414461070 (4) GT CLOGGED (5) Feeding by G-tube ICD Codes: Z93.1 - Gastrostomy status SNOMED: 885623609, 764267817 (6) Tracheostomy in place ICD Codes: Z93.0 - Tracheostomy status SNOMED: 769950332 (7) Pacemaker ICD Codes: Z95.0 - Presence of cardiac pacemaker SNOMED: 513650965 (8) Chronic respiratory failure ICD Codes: J96.10 - Chronic respiratory failure, unspecified whether with hypoxia or hypercapnia SNOMED: 38868144 Status: stable, other - Mood has improved he is able to smile there is no continuous tearing overall she looks better today energy looking the last several days continue with the same management Assessment/Plan: GTF monitor for residuals repeat labs abx per ID respiratory care dc planning per primary team Subjective ROS Limited/Unobtainable: No Allergies: Coded Allergies: No Known Allergies (Unverified , 10/10/17) Objective Last 24 Hour Vital Signs Date Time Temp Pulse Resp B/P (MAP) Pulse Ox O2 Delivery O2 Flow Rate FiO2 10/19/19 05:27 138/57 10/19/19 05:24 53 20 40 10/19/19 04:42 52 10/19/19 04:00 97.0 52 20 138/57 (84) 96 10/19/19 04:00 40 10/19/19 04:00 Mechanical Ventilator Mechanical Ventilator Mechanical Ventilator 10/19/19 04:00 52 10/19/19 03:15 51 20 40 10/19/19 01:09 51 20 40 10/19/19 00:00 Mechanical Ventilator Mechanical Ventilator Mechanical Ventilator 10/19/19 00:00 97.5 52 20 140/61 (87) 99 10/18/19 23:44 55 10/18/19 23:18 53 20 40 10/18/19 21:40 97.7 10/18/19 21:02 53 21 40 10/18/19 20:47 133/60 10/18/19 20:44 50 10/18/19 20:39 50 10/18/19 20:00 97.7 50 20 133/60 (84) 99 10/18/19 20:00 40 10/18/19 20:00 50 10/18/19 20:00 Mechanical Ventilator Mechanical Ventilator Mechanical Ventilator 10/18/19 19:50 97.8 10/18/19 19:32 49 20 40 10/18/19 18:04 128/56 10/18/19 17:08 53 24 40 10/18/19 16:00 Mechanical Ventilator Mechanical Ventilator Mechanical Ventilator 10/18/19 16:00 97.8 54 20 133/60 (84) 100 10/18/19 16:00 51 10/18/19 16:00 40 10/18/19 15:09 54 20 40 10/18/19 12:41 56 20 40 10/18/19 12:00 40 10/18/19 12:00 55 10/18/19 12:00 97.9 54 20 130/59 (82) 100 10/18/19 12:00 Mechanical Ventilator Mechanical Ventilator Mechanical Ventilator 10/18/19 11:16 56 20 40 10/18/19 09:19 62 27 40 10/18/19 08:32 123/59 10/18/19 08:31 65 123/59 Intake and Output 10/18/19 10/19/19 19:00 07:00 Intake Total 580 ml 580 ml Output Total 100 ml 120 ml Balance 480 ml 460 ml Intake Free Water 100 ml 100 ml Tube Feeding 480 ml 480 ml Output Urine Total 100 ml 120 ml # Bowel Movements 4 2 Laboratory Tests 10/19/19 03:15: White Blood Count 11.7H, Red Blood Count 3.30L, Hemoglobin 10.0L, Hematocrit 30.6L, Mean Corpuscular Volume 93, Mean Corpuscular Hemoglobin 30.3, Mean Corpuscular Hemoglobin Concent 32.6, Red Cell Distribution Width 14.9H, Platelet Count 334, Mean Platelet Volume 5.1L, Neutrophils (%) (Auto) 72.2, Lymphocytes (%) (Auto) 16.3L, Monocytes (%) (Auto) 7.0, Eosinophils (%) (Auto) 3.7H, Basophils (%) (Auto) 0.9, Sodium Level 134L, Potassium Level 3.5, Chloride Level 97L, Carbon Dioxide Level 29, Anion Gap 8, Blood Urea Nitrogen 62H, Creatinine 2.3H, Estimat Glomerular Filtration Rate 22.7, Glucose Level 99 , Calcium Level 8.5, Phosphorus Level 4.7, Magnesium Level 2.9H, Total Bilirubin 0.3, Aspartate Amino Transf (AST/SGOT) 24, Alanine Aminotransferase ( ALT/SGPT) 9L, Alkaline Phosphatase 156H, Total Protein 6.3L, Albumin 1.7L, Globulin 4.6, Albumin/Globulin Ratio 0.4L Height (Feet): 5 Height (Inches): 5.00 Weight (Pounds): 144 General Appearance: no apparent distress EENT: normal ENT inspection Neck: normal alignment Cardiovascular: normal rate Respiratory/Chest: decreased breath sounds Abdomen: normal bowel sounds, non tender, soft Extremities: non-tender Inder Mccauley MD Oct 19, 2019 08:01
[2019-10-19] MEDS: Zinc Sulfate 220mg ORAL SCH (08:19)
[2019-10-19] MEDS: Nephrovite tab (Rena-Vite) ORAL SCH (08:20)
[2019-10-19] MEDS: Lisinopril 20mg tab GT SCH ×2 (08:21→17:23)
[2019-10-19] MEDS: Ascorbic Acid 500mg tab ORAL SCH (08:21)
[2019-10-19] MEDS: Heparin 5000 units/ml inj SUBQ SCH ×2 (08:22→20:31)
--- NOTE | 2019-10-19 08:37 | Pulmonology Progress Note ---
Yara Castro PICKLE SORTER 10/19/19 0837: Subjective ROS Limited/Unobtainable: Yes Allergies: Coded Allergies: No Known Allergies (Unverified , 10/10/17) Subjective in [place] now on CPAP trials with PS 8 , yesterday tolerated 1.5 hrs no signs of resp distress denies CP, SOB afebrile, leukocytosis trendign down Objective Last 24 Hour Vital Signs Date Time Temp Pulse Resp B/P (MAP) Pulse Ox O2 Delivery O2 Flow Rate FiO2 10/19/19 08:22 58 142/65 10/19/19 08:21 142/65 10/19/19 08:00 97.5 58 20 142/65 (90) 96 10/19/19 07:20 54 20 40 10/19/19 07:20 97 10/19/19 05:27 138/57 10/19/19 05:24 53 20 40 10/19/19 04:42 52 10/19/19 04:00 97.0 52 20 138/57 (84) 96 10/19/19 04:00 40 10/19/19 04:00 Mechanical Ventilator Mechanical Ventilator Mechanical Ventilator 10/19/19 04:00 52 10/19/19 03:15 51 20 40 10/19/19 01:09 51 20 40 10/19/19 00:00 Mechanical Ventilator Mechanical Ventilator Mechanical Ventilator 10/19/19 00:00 97.5 52 20 140/61 (87) 99 10/18/19 23:44 55 10/18/19 23:18 53 20 40 10/18/19 21:40 97.7 10/18/19 21:02 53 21 40 10/18/19 20:47 133/60 10/18/19 20:44 50 10/18/19 20:39 50 10/18/19 20:00 97.7 50 20 133/60 (84) 99 10/18/19 20:00 40 10/18/19 20:00 50 10/18/19 20:00 Mechanical Ventilator Mechanical Ventilator Mechanical Ventilator 10/18/19 19:50 97.8 10/18/19 19:32 49 20 40 10/18/19 18:04 128/56 10/18/19 17:08 53 24 40 10/18/19 16:00 Mechanical Ventilator Mechanical Ventilator Mechanical Ventilator 10/18/19 16:00 97.8 54 20 133/60 (84) 100 10/18/19 16:00 51 10/18/19 16:00 40 10/18/19 15:09 54 20 40 10/18/19 12:41 56 20 40 10/18/19 12:00 40 10/18/19 12:00 55 10/18/19 12:00 97.9 54 20 130/59 (82) 100 10/18/19 12:00 Mechanical Ventilator Mechanical Ventilator Mechanical Ventilator 10/18/19 11:16 56 20 40 10/18/19 09:19 62 27 40 Intake and Output 10/18/19 10/19/19 19:00 07:00 Intake Total 580 ml 580 ml Output Total 100 ml 120 ml Balance 480 ml 460 ml Intake Free Water 100 ml 100 ml Tube Feeding 480 ml 480 ml Output Urine Total 100 ml 120 ml # Bowel Movements 4 2 Objective General Appearance: no apparent distress, bedridden middle age chronically ill looking female on vent AC 500-20- 40%, PEEP 5, awake, calm-currently on CPAP PS8 Lines, tubes and drains: left jugular HD catheter HEENT: normocephalic, atraumatic, anicteric, trach - Shiley #7 cuffed XLT, secretions small amount, yellow color , thick consistency Respiratory/Chest: no accessory muscle use, BS overall CTAB Cardiovascular/Chest: normal rate, regular rhythm - SR on tele Abdomen: normal bowel sounds, non tender, soft, G tube Genitourinary/Rectal: Norman Extremities: no edema Skin Exam: warm/dry, multiple tattoos all over the body Neurologic: awake, no gross focal Musculoskeletal: atrophy - BLE Laboratory Tests 10/19/19 03:15: White Blood Count 11.7H, Red Blood Count 3.30L, Hemoglobin 10.0L, Hematocrit 30.6L, Mean Corpuscular Volume 93, Mean Corpuscular Hemoglobin 30.3, Mean Corpuscular Hemoglobin Concent 32.6, Red Cell Distribution Width 14.9H, Platelet Count 334, Mean Platelet Volume 5.1L, Neutrophils (%) (Auto) 72.2, Lymphocytes (%) (Auto) 16.3L, Monocytes (%) (Auto) 7.0, Eosinophils (%) (Auto) 3.7H, Basophils (%) (Auto) 0.9, Sodium Level 134L, Potassium Level 3.5, Chloride Level 97L, Carbon Dioxide Level 29, Anion Gap 8, Blood Urea Nitrogen 62H, Creatinine 2.3H, Estimat Glomerular Filtration Rate 22.7, Glucose Level 99 , Calcium Level 8.5, Phosphorus Level 4.7, Magnesium Level 2.9H, Total Bilirubin 0.3, Aspartate Amino Transf (AST/SGOT) 24, Alanine Aminotransferase ( ALT/SGPT) 9L, Alkaline Phosphatase 156H, Total Protein 6.3L, Albumin 1.7L, Globulin 4.6, Albumin/Globulin Ratio 0.4L Current Medications Medications (Trade) Dose Ordered Sig/Penny Route PRN Reason Start Time Stop Time Status Last Admin Dose Admin Acetaminophen (Tylenol) 325 mg Q4H PRN GT Mild Pain (Pain Scale 1-3) 10/17/19 18:45 11/16/19 18:44 10/18/19 19:20 Acetaminophen (Tylenol) 325 mg Q6H PRN GT Temp >100.5 10/11/19 04:45 10/23/19 10:44 10/18/19 04:20 Ascorbic Acid (Vitamin C) 500 mg DAILY ORAL 10/11/19 09:00 11/05/19 08:59 10/19/19 08:21 Chlorhexidine Gluconate (Ling-Hex 2%) 1 applic DAILY@2000 TOPIC 10/11/19 20:00 12/22/19 19:59 10/18/19 20:07 Clonidine HCl (Catapres TTS-3) 1 patch QWEEK TDERMAL 10/14/19 12:00 01/12/20 11:59 10/14/19 11:51 Dextrose (Dextrose 50%) 25 ml Q30M PRN IV Hypoglycemia 10/11/19 04:30 01/03/20 18:29 Dextrose (Dextrose 50%) 50 ml Q30M PRN IV Hypoglycemia 10/11/19 04:30 01/03/20 18:29 Diltiazem HCl (Cardizem Tab) 90 mg Q8HR GT 10/16/19 14:00 11/09/19 11:59 Docusate Sodium (Colace) 100 mg Q8HR GT 10/14/19 14:01 11/13/19 14:00 10/17/19 05:20 Epoetin Gelacio (Epoetin Gelacio(ESRD on dialysis)) 10,000 unit MON- SUBQ 10/14/19 21:00 01/12/20 20:59 10/18/19 21:09 Haloperidol Lactate (Haldol) 5 mg Q6H PRN IM Agitation 10/11/19 05:00 11/22/19 10:59 10/19/19 00:50 Heparin Sodium (Porcine) (Heparin 5000 units/ml) 5,000 units EVERY 12 HOURS SUBQ 10/11/19 09:00 10/30/19 08:59 10/19/19 08:22 Insulin Aspart (NovoLOG) Q6HR SUBQ 10/11/19 06:00 01/03/20 20:59 Lansoprazole (Prevacid) 30 mg Q12HR GT 10/11/19 09:00 10/27/19 20:59 10/19/19 08:20 Lisinopril (PriniviL) 20 mg BID GT 10/11/19 09:00 11/08/19 17:59 10/19/19 08:21 Meropenem 500 mg/ Sodium Chloride 55 ml @ 110 mls/hr Q24H IVPB 10/18/19 13:00 10/23/19 12:59 10/18/19 13:07 Metoclopramide HCl (Reglan) 5 mg EVERY 6 HOURS GT 10/11/19 06:00 11/08/19 11:59 10/19/19 06:11 Metoprolol Tartrate (Lopressor) 25 mg Q12HR GT 10/11/19 09:00 01/07/20 20:59 10/18/19 08:31 Minoxidil (Loniten) 2.5 mg Q8HR ORAL 10/11/19 06:00 01/08/20 13:59 10/18/19 05:12 Morphine Sulfate (Morphine Sulfate) 2 mg Q6H PRN IVP For Pain 10/16/19 09:45 10/23/19 09:44 10/19/19 07:56 Polyethylene Glycol (Miralax) 17 gm BEDTIME ORAL 10/11/19 21:00 10/31/19 20:59 10/16/19 20:30 Risperidone (RisperDAL) 2 mg BEDTIME ORAL 10/11/19 21:00 11/19/19 20:59 10/18/19 20:56 Sorbitol (sorbitoL) 30 ml EVERY 6 HOURS PRN GT Constipation 10/11/19 06:00 10/29/19 17:59 Vitamin B Complex/ Vit C/Folic Acid (Nephrovite) 1 tab DAILY ORAL 10/11/19 09:00 11/05/19 08:59 10/19/19 08:20 Zinc Sulfate (Zinc Sulfate) 220 mg DAILY ORAL 10/11/19 09:00 10/21/19 08:59 10/19/19 08:19 Assessment/Plan Assessment/Plan ASSESSMENT Acute on chronic hypoxemic respiratory failure ( trach dependent), now on vent Tracheostomy status, s/p change to cuffed trach Sepsis Pulmonary edema Pleural effusion -worsening left pl effusion s/p thoracentesis L pleural effusion 09/26 -900 ml Pneumonia with MDR Pseudomonas UTI CHF ? cardiorenal COPD Acute kidney injury and chronic kidney disease-requiring start of HD Hypertension Atrial fibrillation Moderate pulm HTN Moderate AR Dysphagia , feeding by G-tube Electrolyte abnormalities Anemia Toxic metabolic encephalopathy likely due to sepsis and ARF HTN PAF Fevers. leukocytosis PLAN OF CARE PAULIE on vent AC trach changed 8/4 pm from uncuffed to cuffed Shiley#[address] chest w/out contrast: - Bilateral pleural effusions, right greater than left, with bilateral lower lobe consolidation or volume loss. -Ground-glass densities in the upper lobes bilaterally. This is not specific. -Tracheostomy. -Increased superior mediastinal density. Stability of adenopathy cannot be excluded. -Atherosclerotic change. -Gastrostomy. -Ascites. -Left renal stent with left hydronephrosis and renal atrophy. VQ scan -> low probability for PE worsening resp status was due to need for HD, now after HD started, resp status improving, down to PEEP 5 and AC 20 trach care , pulmonary toilet Mucomyst was prior dc given lots of thin secretions, continue Duoneb prn rapid COVID 19 NGT x3 off Fentanyl gtt since 10/09 FiO2 down to 40% last ABG stable 10/09 CXR 10/14 -increased right pleural fluid and parenchymal disease, doubt PNA likely fluid tolerating CPAP trials with PS 8 FiO2 40% for few hours continue CPAP trials as tolerated may continue in subacute upon discharge s/p thoracentesis L pleural effusion 09/26 am -> 900 ml fluid analysis noted, unlikely empyema given small # of WBC fup with fluid cx ( apparently never sent despite orders) cytology -> NGT, no malignant cells aspiration precautions venous Duplex BLE -> NGT DVT prophylaxis pulm toilet, BP regimen optimized as per nephro monitor volumes was on gentle IVF-> dc s/p prior diuretic-Lasix require initiation of HD continue further HD as per nephro with close monitoring of volumes, renal parameters and lytes -per nephro recs abx as per ID- s/p gent x 1, now on Vanco and Zerbaxa , completed 10/02 SCX 09/15 + Proteus, SCX 09/22 Pseudomonas MDR UCX 09/14 + Providencia , UCX 09/22 VRE - K only BCX 09/14 Staph epidermidis, BCX 09/15 NGT , BCX 09/22 and 09/26 - NGTD UCX 10/07 + VRE, Laura- per ID started on Dapto 10/10- pancx 10/14 due to fever and leukocytosis 10/14 BCX NGTD UCX 10/14 + Providencia, MDR, SCX+ Proteus ESBL, Pseudomonas MDR CXR 10/12 stable leuk 10/17, started on meropenem 10/17 -> as per ID recs, this am trending down no fevers CXR 10/17 bilateral pleural effusions demonstrated. Mild interstitial and airspace congestion unchanged. ECHO with pEF , moderate pulm HTN and moderate AR BP management with current regimen of BB, Cardizem and Hydralazine, remains in SR monitor HH with goal to keep Hgb >7, heme on board on EPO supportive care pain management wound care bowel regimen stable for dc from pulm standpoint dc plan in progress Note; time of this note does not reflect the actual time patient was seen. [facility] was down case discussed and evaluated by supervising physician Juve Martinez MD 10/19/19 1321: Subjective Allergies: Coded Allergies: No Known Allergies (Unverified , 10/10/17) Assessment/Plan Assessment/Plan Patient seen and examined with P[employer]LE S[employer]TER. Agree with above A&P as it reflects our joint deliberations. Yara Castro NP Oct 19, 2019 08:37 Juve Martinez MD Oct 19, 2019 13:21
--- NOTE | 2019-10-19 10:40 | Surgery Progress Note ---
Surgery Progress Note Subjective Symptoms: improved Objective Last 24 Hour Vital Signs Date Time Temp Pulse Resp B/P (MAP) Pulse Ox O2 Delivery O2 Flow Rate FiO2 10/19/19 08:48 61 32 40 10/19/19 08:26 97.5 10/19/19 08:22 58 142/65 10/19/19 08:21 142/65 10/19/19 08:00 97.5 58 20 142/65 (90) 96 10/19/19 08:00 56 10/19/19 07:20 54 20 40 10/19/19 07:20 97 10/19/19 05:27 138/57 10/19/19 05:24 53 20 40 10/19/19 04:42 52 10/19/19 04:00 97.0 52 20 138/57 (84) 96 10/19/19 04:00 40 10/19/19 04:00 Mechanical Ventilator Mechanical Ventilator Mechanical Ventilator 10/19/19 04:00 52 10/19/19 03:15 51 20 40 10/19/19 01:09 51 20 40 10/19/19 00:00 Mechanical Ventilator Mechanical Ventilator Mechanical Ventilator 10/19/19 00:00 97.5 52 20 140/61 (87) 99 10/18/19 23:44 55 10/18/19 23:18 53 20 40 10/18/19 21:02 53 21 40 10/18/19 20:47 133/60 10/18/19 20:44 50 10/18/19 20:39 50 10/18/19 20:00 97.7 50 20 133/60 (84) 99 10/18/19 20:00 40 10/18/19 20:00 50 10/18/19 20:00 Mechanical Ventilator Mechanical Ventilator Mechanical Ventilator 10/18/19 19:50 97.8 10/18/19 19:32 49 20 40 10/18/19 18:04 128/56 10/18/19 17:08 53 24 40 10/18/19 16:00 Mechanical Ventilator Mechanical Ventilator Mechanical Ventilator 10/18/19 16:00 97.8 54 20 133/60 (84) 100 10/18/19 16:00 51 10/18/19 16:00 40 10/18/19 15:09 54 20 40 10/18/19 12:41 56 20 40 9/4/20 12:00 40 10/18/19 12:00 55 10/18/19 12:00 97.9 54 20 130/59 (82) 100 10/18/19 12:00 Mechanical Ventilator Mechanical Ventilator Mechanical Ventilator 10/18/19 11:16 56 20 40 I&O Intake and Output 10/18/19 10/19/19 19:00 07:00 Intake Total 580 ml 580 ml Output Total 100 ml 120 ml Balance 480 ml 460 ml Intake Free Water 100 ml 100 ml Tube Feeding 480 ml 480 ml Output Urine Total 100 ml 120 ml # Bowel Movements 4 2 Dressing: saturated Cardiovascular: RSR Respiratory: decreased breath sounds Abdomen: soft, non-tender, present bowel sounds Extremities: no cyanosis Laboratory Tests Test 10/19/19 03:15 White Blood Count 11.7 K/UL (4.8-10.8) H Red Blood Count 3.30 M/UL (4.20-5.40) L Hemoglobin 10.0 G/DL (12.0-16.0) L Hematocrit 30.6 % (37.0-47.0) L Mean Corpuscular Volume 93 FL (80-99) Mean Corpuscular Hemoglobin 30.3 PG (27.0-31.0) Mean Corpuscular Hemoglobin Concent 32.6 G/DL (32.0-36.0) Red Cell Distribution Width 14.9 % (11.6-14.8) H Platelet Count 334 K/UL (150-450) Mean Platelet Volume 5.1 FL (6.5-10.1) L Neutrophils (%) (Auto) 72.2 % (45.0-75.0) Lymphocytes (%) (Auto) 16.3 % (20.0-45.0) L Monocytes (%) (Auto) 7.0 % (1.0-10.0) Eosinophils (%) (Auto) 3.7 % (0.0-3.0) H Basophils (%) (Auto) 0.9 % (0.0-2.0) Sodium Level 134 MMOL/L (136-145) L Potassium Level 3.5 MMOL/L (3.5-5.1) Chloride Level 97 MMOL/L (98-107) L Carbon Dioxide Level 29 MMOL/L (21-32) Anion Gap 8 mmol/L (5-15) Blood Urea Nitrogen 62 mg/dL (7-18) H Creatinine 2.3 MG/DL (0.55-1.30) H Estimat Glomerular Filtration Rate 22.7 mL/min (>60) Glucose Level 99 MG/DL (74-106) Calcium Level 8.5 MG/DL (8.5-10.1) Phosphorus Level 4.7 MG/DL (2.5-4.9) Magnesium Level 2.9 MG/DL (1.8-2.4) H Total Bilirubin 0.3 MG/DL (0.2-1.0) Aspartate Amino Transf (AST/SGOT) 24 U/L (15-37) Alanine Aminotransferase (ALT/SGPT) 9 U/L (12-78) L Alkaline Phosphatase 156 U/L (46-116) H Total Protein 6.3 G/DL (6.4-8.2) L Albumin 1.7 G/DL (3.4-5.0) L Globulin 4.6 g/dL Albumin/Globulin Ratio 0.4 (1.0-2.7) L Plan Problems: (1) Anemia (2) Proteinuria (3) UTI (urinary tract infection) (4) ARF (acute renal failure) (5) ACS (acute coronary syndrome) (6) Respiratory failure, acute and chronic (7) HCAP (healthcare-associated pneumonia) (8) Abrasion of lip, initial encounter (9) COPD with exacerbation (10) Hypokalemia (11) Sepsis Assessment & Plan: Leukocytosis, anemia, abnormal labs. Renal insufficiency potentially dehydrated Abnormal LFTs alk phos elevated Urine noted significant bacteria likely UTI etiology Wound stable still requiring local care IV antibiotics per infectious disease Discussed with client application support specialist Dr. Berkowitz air mattress turn q2h nutritional tf will follow with recs thank you CT noted pending VQ scan - noted poor study low prob PE work respiratory increasing needs sedation weaning vent settings 80% peep 10 now comfortable Hd line in receiving HD plan for left thora 09/26 cont weaning vent as tolerated improving labs improved placement d/c planning (12) Chronic respiratory failure (13) Ascites (14) Bacteremia (15) Hypernatremia (16) Pleural effusion (17) Pacemaker (18) Aortic dissection, thoracic (19) Tracheostomy in place Assessment & Plan: trach stable no bleeding currently likely tongue etiology of mild oozing currently hemostatic without trauma (20) Feeding by G-tube Assessment & Plan: okay to resume tube feeds via g tube patent and functional dressings okay DAILY ESTIMATED NEEDS: Needs based on Pulmonary, wound 49kg 30-35 kcals/kg [id number] total kcals 1.25-2 g protein/kg 61-98 g total protein Fluid per MD NUTRITION DIAGNOSIS: * Swallowing difficulty R/T dysphagia, respiratory status as evidenced by vent dep via T-collar, GT Dep. (CURRENT TF: Nepro @45ml/hr x 24 hrs) ENTERAL NUTRITION RECOMMENDATIONS: Nepro @ 40ml/hr x 24 hrs to provide 960ml, 1728kcal, 78g prot, 698ml free water * Rec LOWER current rate to 40ml/hr for 24 hrs run. 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 Base of wound is granular with bone exposure at base of sacrococcygeal.(L)10.5cm x (W06.5cm x (D) 2.8cm , undermining 11-3 by 3.6cm @12 o'clock. small amt serosanguineous exudate noted . [place] epithelial along edges bordered by darker skin tone without erythema. Resolving Pressure injury L ischium. Base of wound is 95% pink epithelial ,5% noni at center base of wound. No exudate noted. Both heels are boggy with non-Blanching erythema. Tx.plan: Cleanse Sacral wound with Saline. Loosely pack with Hydrogel impregnated Kerlix. Apply Moisture Barrier Periwound. Cover with Optifoam drsg Daily and prn. Apply Moisture Barrier paste to L Ischium. Cover with Optifoam drsg. Changee very 3 days and prn. Apply Cavilon Skin Barrier to both heels. Cover each heel with Optifoam drsgs. Change every 7 days and prn. Reposition at least every 2hours or as tolerated. Off-load heels with pillow. APM/MAXWELL Mattress overlay. Sacral wound resolving. Wound is smaller in size with less depth and undermining (L)8.5cm x (W)5cm x (D)1.3cm, undermining clockwise 11-3 by 2.1cm @ 12o'clock. Base of wound is pink and moist, small area of bone exposure at base. Small amt. seropurulent exudate noted. No odor noted. Periwound without evidence of further skin breakdown noted. Wound Tx. are effective and continued as ordered. Al wound prevention protocols continued as care-planned. Tx.Plan:Cleanse sacral wound with Saline. Loosely pack with Hydrogel impregnated kerlix. Apply Moisture Barrier Paste periwound. Cover with Optifoam drsg Daily and prn. Apply Cavilon Skin Barrier to both heels and malleoli. Cover eachsite with Optifoam drsgs. Change every 7 days and prn. Reposition at least every 2hours or as tolerated. Off-load heels with pillow. APM/Maxwell Mattress overlay. Lane Saavedra Oct 19, 2019 10:40
--- NOTE | 2019-10-19 11:57 | Nephrology Progress Note ---
Assessment/Plan Problem List: (1) JAVIER (acute kidney injury) (2) Renal failure (ARF), acute on chronic (3) Dehydration (4) Electrolyte imbalance (5) Anemia (6) Respiratory failure, acute and chronic (7) COPD with exacerbation Assessment Patient is presented with sepsis and pneumonia and UTI Patient has acute renal failure, possible underlying chronic kidney failure Severe anemia Electrolyte imbalances: Hyponatremia, hypo-kalemia Chronic respiratory failure, COPD exacerbation Plan October 18: Last dialysis October 16. Serum creatinine rising. Oliguria persists. Continue to monitor renal parameters and dialysis as needed. October 17: It appears that the patient received dialysis last night and the dialysis nurse changed her mind about delaying to today. Today's labs reviewed. Electrolyte abnormalities corrected. Continue per consultants. October 16: Late note entry due to system problem at the [facility] today.Patient due for dialysis today. Dialysis nurse informed that due to few emergencies if she can be done tomorrow. No chemistry panel for today." We will order labs on dialysis tomorrow. October 15: Last dialysis October 13. Labs were reviewed. Urine output very low. Will dialyze and ultrafiltrate tomorrow. Per consultants. October 14: Dialyzed yesterday. Labs reviewed. Medication list reviewed. Continue per consultants. October 13: Patient seen on dialysis. Tolerating well. Will check labs tomorrow. October 12: Blood pressure stable. Labs reviewed. BUN rising. Remains oliguric. Dialysis tomorrow. October 11: Blood pressure is stable. Labs reviewed. Continue as is. Dialysis as needed October 10: Blood pressure medication adjusted. Will check lab tomorrow. Dialysis as needed. Urine output remains low. October 09: Lab reviewed. Remains oliguric. Will give trial of Zaroxolyn. Continue per consultants. Adjust blood pressure medication. Will add Zaroxolyn and increased dose of Cardizem and add clonidine patch for better BP control October 08: Labs reviewed. Patient oliguric. Blood pressure elevated, BP medication adjusted. Recheck lab tomorrow. Dialysis and ultrafiltration as needed. October 07: Labs reviewed. Patient was dialyzed yesterday. 3000 mL fluid was removed. Patient appears to need periodic (twice a week minimum) dialysis for ultrafiltration. Continue to monitor renal parameters. Continue per consultants. October 06: Labs reviewed. Discussed with pulmonary. Will attempt dialysis and ultrafiltration. Continue per consultants. October 05: Lab reviewed. Serum creatinine rising. Blood pressure stabilized. Will recheck lab tomorrow. Dialysis as needed. Will increase lisinopril to 10 mg twice a day. October 04: Lab reviewed. Blood pressure medication adjusted since the patient is hypotensive. Serum creatinine rising. Recheck labs tomorrow. Dialysis as needed. Discussed with RN. October 03: Lab reviewed. Zestril added to BP medication. 1 dose of Seroquel ordered for agitation. Continue to monitor renal parameters. Continue per consultants. October 02: Lab reviewed. Potassium supplement IV given. 3% saline 250 cc ordered. Responded well to Zaroxolyn yesterday. Will continue to monitor electrolytes and renal parameters. Will increase minoxidil to 2.5 mg every 6 hours. October 01: Labs reviewed. Potassium supplement given. Last dialysis September 29. Serum creatinine rising gradually. Urine output very low. Patient appears to continue to need dialysis at least twice a week. Blood pressure still running high I will switch the hydralazine to minoxidil. We will give 1 dose of Zaroxolyn 10 mg today. Will check renal parameters tomorrow. September 30: Patient dialyzed yesterday. 3 L removed. Labs reviewed. Potassium supplement given. Continue per consultants. It appears that the patient required dialysis 2-3 times a week. September 29: Lab reviewed. Chest x-ray result noted. Continues to have pulmonary congestion. Urine output low. Will attempt dialysis again today with ultrafiltration. September 28: Lab reviewed. ABG reviewed. Potassium supplement given. No dialysis at this point. Will eval patient status and renal parameters daily. September 27: Lab reviewed. Last dialysis September 25. Continue to monitor renal parameters. Hemodialysis as needed. September 26: Lab reviewed. Dialyzed yesterday. Potassium supplement given. Medication list reviewed. Will observe renal parameters and arrange for dialysis as needed. September 25: Lab reviewed. Currently on hemodialysis. Tolerating well. Stable from renal standpoint of view. Blood pressure medication adjusted by increasing hydralazine. September 24: Lab reviewed. ABG reviewed. Both lab and ABG much improved. Patient was dialyzed yesterday. We will attempt dialysis tomorrow again. Will adjust that blood pressure medication dosages. September 23: Lab reviewed. ABG reviewed. Patient acidotic. IV bicarb 1 dose is given. Patient has dialysis catheter. Will order dialysis for ultrafiltration and correction of acid-base. Discussed with ERASMO Mohr. September 22: Labs reviewed. Potassium high. Kayexalate and Reglan given. Will discuss with the consultants regarding initiation of dialysis. September 21: Patient is being sedated. Labs reviewed. Potassium supplement discontinued. GFR 20. Continue per current treatment plan. Dialysis and ultrafiltration is a consideration. September 20: Patient periodically agitated. Labs reviewed. Creatinine 2.4. Medication reviewed. Continue per consultants. Calculated creatinine clearance 21. May need isolated ultrafiltration on dialysis. Will discuss with PMD. Meanwhile hemoglobin is lower, defer transfusion to PMD. September 19: DC IV fluid. Zaroxolyn via GT tube. Potassium supplement. Attempt to diurese. Chest CT as bilateral pleural effusion. If diuresis unsuccessful, will consider dialysis and ultrafiltration. September 18: Potassium supplement IV given. Hemoglobin stable. Patient remains full code. Continue per consultants. Previously: Potassium supplement IV Slow IV hydration Epogen subcu Adjust blood pressure medication IV fluid, rate adjusted Norman catheter, intake and output Monitor renal parameters Avoid nephrotoxic's Antibiotics Per orders 2D echocardiogram Kidney ultrasound Subjective ROS Limited/Unobtainable: Yes Objective Objective Last 24 Hour Vital Signs Date Time Temp Pulse Resp B/P (MAP) Pulse Ox O2 Delivery O2 Flow Rate FiO2 10/19/19 10:38 62 29 40 10/19/19 08:48 61 32 40 10/19/19 08:26 97.5 10/19/19 08:22 58 142/65 10/19/19 08:21 142/65 10/19/19 08:00 Mechanical Ventilator Mechanical Ventilator Mechanical Ventilator 10/19/19 08:00 97.5 58 20 142/65 (90) 96 10/19/19 08:00 56 10/19/19 08:00 40 10/19/19 07:20 54 20 40 10/19/19 07:20 97 10/19/19 05:27 138/57 10/19/19 05:24 53 20 40 10/19/19 04:42 52 10/19/19 04:00 97.0 52 20 138/57 (84) 96 10/19/19 04:00 40 10/19/19 04:00 Mechanical Ventilator Mechanical Ventilator Mechanical Ventilator 10/19/19 04:00 52 10/19/19 03:15 51 20 40 10/19/19 01:09 51 20 40 10/19/19 00:00 Mechanical Ventilator Mechanical Ventilator Mechanical Ventilator 10/19/19 00:00 97.5 52 20 140/61 (87) 99 10/18/19 23:44 55 10/18/19 23:18 53 20 40 10/18/19 21:02 53 21 40 10/18/19 20:47 133/60 10/18/19 20:44 50 10/18/19 20:39 50 10/18/19 20:00 97.7 50 20 133/60 (84) 99 10/18/19 20:00 40 10/18/19 20:00 50 10/18/19 20:00 Mechanical Ventilator Mechanical Ventilator Mechanical Ventilator 10/18/19 19:50 97.8 10/18/19 19:32 49 20 40 10/18/19 18:04 128/56 10/18/19 17:08 53 24 40 10/18/19 16:00 Mechanical Ventilator Mechanical Ventilator Mechanical Ventilator 10/18/19 16:00 97.8 54 20 133/60 (84) 100 10/18/19 16:00 51 10/18/19 16:00 40 10/18/19 15:09 54 20 40 10/18/19 12:41 56 20 40 10/18/19 12:00 40 10/18/19 12:00 55 10/18/19 12:00 97.9 54 20 130/59 (82) 100 10/18/19 12:00 Mechanical Ventilator Mechanical Ventilator Mechanical Ventilator Intake and Output 10/18/19 10/19/19 19:00 07:00 Intake Total 580 ml 580 ml Output Total 100 ml 120 ml Balance 480 ml 460 ml Intake Free Water 100 ml 100 ml Tube Feeding 480 ml 480 ml Output Urine Total 100 ml 120 ml # Bowel Movements 4 2 Laboratory Tests 10/19/19 03:15: White Blood Count 11.7H, Red Blood Count 3.30L, Hemoglobin 10.0L, Hematocrit 30.6L, Mean Corpuscular Volume 93, Mean Corpuscular Hemoglobin 30.3, Mean Corpuscular Hemoglobin Concent 32.6, Red Cell Distribution Width 14.9H, Platelet Count 334, Mean Platelet Volume 5.1L, Neutrophils (%) (Auto) 72.2, Lymphocytes (%) (Auto) 16.3L, Monocytes (%) (Auto) 7.0, Eosinophils (%) (Auto) 3.7H, Basophils (%) (Auto) 0.9, Sodium Level 134L, Potassium Level 3.5, Chloride Level 97L, Carbon Dioxide Level 29, Anion Gap 8, Blood Urea Nitrogen 62H, Creatinine 2.3H, Estimat Glomerular Filtration Rate 22.7, Glucose Level 99 , Calcium Level 8.5, Phosphorus Level 4.7, Magnesium Level 2.9H, Total Bilirubin 0.3, Aspartate Amino Transf (AST/SGOT) 24, Alanine Aminotransferase ( ALT/SGPT) 9L, Alkaline Phosphatase 156H, Total Protein 6.3L, Albumin 1.7L, Globulin 4.6, Albumin/Globulin Ratio 0.4L Height (Feet): 5 Height (Inches): 5.00 Weight (Pounds): 144 General Appearance: no apparent distress EENT: other - Trach to vent Cardiovascular: normal rate Respiratory/Chest: decreased breath sounds Abdomen: soft Objective No change Johnny Houston MD Oct 19, 2019 11:57
[2019-10-19 12:00] VITALS: BP 147/62
[2019-10-19] MEDS: Meropenem 500 MG in NS 55 ML IVPB SCH (13:15)
[2019-10-19] MEDS: Acetaminophen 650mg/20.3ml GT PRN (13:21)
[2019-10-19 16:00] VITALS: BP 142/59
--- NOTE | 2019-10-19 19:53 | General Progress Note ---
Assessment/Plan Status: stable, other - Mood has improved he is able to smile there is no continuous tearing overall she looks better today energy looking the last several days continue with the same management Status Narrative Today patient was able to tolerate 8 hours of BiPAP machine before she requested to be signed back to the respirator which is her baseline which he had been worsening since admission on the same time patient was placed on imipenem yesterday she spiked a fever leukocytosis and increase in chest x-ray today she looks much better and her WBC declined to 11,000 she is scheduled to undergo hemodialysis tomorrow if she will require regular hemodialysis she would not be able to go back to regular subacute and will have to go to subacute with except hemodialysis of those are only few repeat laboratory test will be done in a.m. LUCAS DONG MD Subjective Constitutional: Reports: other - Patient is alert but maintaining eyes open attention span for quite a while she was content to be able to BiPAP for 8 hours before she went back to the respirator HEENT: Reports: no symptoms Cardiovascular: Reports: no symptoms Respiratory: Reports: no symptoms Gastrointestinal/Abdominal: Reports: no symptoms Genitourinary: Reports: no symptoms Neurologic/Psychiatric: Reports: anxiety, depressed, other - Even though she is anxious and depressed the intensity of the symptoms will very mild today Endocrine: Reports: no symptoms Hematologic/Lymphatic: Reports: no symptoms Allergies: Coded Allergies: No Known Allergies (Unverified , 10/10/17) Objective Last 24 Hour Vital Signs Date Time Temp Pulse Resp B/P (MAP) Pulse Ox O2 Delivery O2 Flow Rate FiO2 10/19/19 17:23 142/59 10/19/19 16:53 51 20 40 10/19/19 16:00 98.2 56 20 142/59 (86) 95 10/19/19 16:00 Mechanical Ventilator Mechanical Ventilator Mechanical Ventilator 10/19/19 16:00 61 10/19/19 16:00 40 10/19/19 14:53 97.8 10/19/19 14:45 59 22 40 10/19/19 13:51 97.8 10/19/19 13:16 60 147/62 10/19/19 13:16 147/62 10/19/19 12:00 40 10/19/19 12:00 98.1 55 20 147/62 (90) 96 10/19/19 12:00 58 10/19/19 12:00 Mechanical Ventilator Mechanical Ventilator Mechanical Ventilator 10/19/19 10:38 62 29 40 10/19/19 08:48 61 32 40 10/19/19 08:22 58 142/65 10/19/19 08:21 142/65 10/19/19 08:00 Mechanical Ventilator Mechanical Ventilator Mechanical Ventilator 10/19/19 08:00 97.5 58 20 142/65 (90) 96 10/19/19 08:00 56 10/19/19 08:00 40 10/19/19 07:20 54 20 40 10/19/19 07:20 97 10/19/19 05:27 138/57 10/19/19 05:24 53 20 40 10/19/19 04:42 52 10/19/19 04:00 97.0 52 20 138/57 (84) 96 10/19/19 04:00 40 10/19/19 04:00 Mechanical Ventilator Mechanical Ventilator Mechanical Ventilator 10/19/19 04:00 52 10/19/19 03:15 51 20 40 10/19/19 01:09 51 20 40 10/19/19 00:00 Mechanical Ventilator Mechanical Ventilator Mechanical Ventilator 10/19/19 00:00 97.5 52 20 140/61 (87) 99 10/18/19 23:44 55 10/18/19 23:18 53 20 40 10/18/19 21:02 53 21 40 10/18/19 20:47 133/60 10/18/19 20:44 50 10/18/19 20:39 50 10/18/19 20:00 97.7 50 20 133/60 (84) 99 10/18/19 20:00 40 10/18/19 20:00 50 10/18/19 20:00 Mechanical Ventilator Mechanical Ventilator Mechanical Ventilator 10/18/19 19:50 97.8 Intake and Output 10/18/19 10/19/19 19:00 07:00 Intake Total 580 ml 580 ml Output Total 100 ml 120 ml Balance 480 ml 460 ml Intake Free Water 100 ml 100 ml Tube Feeding 480 ml 480 ml Output Urine Total 100 ml 120 ml # Bowel Movements 4 2 Laboratory Tests 10/19/19 03:15: White Blood Count 11.7H, Red Blood Count 3.30L, Hemoglobin 10.0L, Hematocrit 30.6L, Mean Corpuscular Volume 93, Mean Corpuscular Hemoglobin 30.3, Mean Corpuscular Hemoglobin Concent 32.6, Red Cell Distribution Width 14.9H, Platelet Count 334, Mean Platelet Volume 5.1L, Neutrophils (%) (Auto) 72.2, Lymphocytes (%) (Auto) 16.3L, Monocytes (%) (Auto) 7.0, Eosinophils (%) (Auto) 3.7H, Basophils (%) (Auto) 0.9, Sodium Level 134L, Potassium Level 3.5, Chloride Level 97L, Carbon Dioxide Level 29, Anion Gap 8, Blood Urea Nitrogen 62H, Creatinine 2.3H, Estimat Glomerular Filtration Rate 22.7, Glucose Level 99 , Calcium Level 8.5, Phosphorus Level 4.7, Magnesium Level 2.9H, Total Bilirubin 0.3, Aspartate Amino Transf (AST/SGOT) 24, Alanine Aminotransferase ( ALT/SGPT) 9L, Alkaline Phosphatase 156H, Total Protein 6.3L, Albumin 1.7L, Globulin 4.6, Albumin/Globulin Ratio 0.4L Height (Feet): 5 Height (Inches): 5.00 Weight (Pounds): 144 General Appearance: no apparent distress, alert, lethargic EENT: normal ENT inspection Neck: supple Cardiovascular: normal rate, regular rhythm, no gallop/murmur, no JVD Respiratory/Chest: lungs clear, normal breath sounds, no respiratory distress Abdomen: normal bowel sounds, non tender, soft, no mass Extremities: non-tender, other Skin: warm/dry Lucas Dong MD Oct 19, 2019 19:53
[2019-10-19 20:00] VITALS: BP 133/54
[2019-10-19] MEDS ORDERED: NS 275ml ONE (20:08)
[2019-10-19] MEDS: Dyna-Hex 2% Top Sol 2oz TOPIC SCH (20:28)
[2019-10-19] MEDS: Miralax 17gm pkt ORAL SCH (20:28)
[2019-10-20] VITALS: BP 112/57
[2019-10-20] MEDS: Haloperidol 5mg/ml Inj IM PRN (00:06)
[2019-10-20] MEDS: Metoclopramide 10mg/10ml Liq GT SCH ×4 (00:10→17:29)
[2019-10-20] MEDS: Meropenem 500 MG in NS 55 ML IVPB SCH ×2 (01:16→12:12)
[2019-10-20 04:00] VITALS: BP 138/55
[2019-10-20] MEDS: Docusate 100mg/10ml Liq GT SCH ×3 (05:47→21:20)
[2019-10-20] MEDS: NovoLOG Insulin Flexpen SUBQ SCH ×4 (05:47→16:42)
[2019-10-20] MEDS: dilTIAZem HCl 90mg tab GT SCH ×3 (05:47→21:20)
[2019-10-20] MEDS: Minoxidil 2.5mg tab ORAL SCH ×3 (05:52→21:19)
[2019-10-20 06:55] LABS: BASOPHILS % (AUTO) 0.5 % (0.0-2.0); EOSINOPHILS % (AUTO) 1.6 % (0.0-3.0); HEMATOCRIT 32.7 % (37.0-47.0); HEMOGLOBIN 10.8 G/DL (12.0-16.0); LYMPHOCYTES % (AUTO) 16.9 % (20.0-45.0); MEAN CORPUSCULAR VOLUME 93 FL (80-99); MONOCYTES % (AUTO) 5.9 % (1.0-10.0); NEUTROPHILS % (AUTO) 75.1 % (45.0-75.0); PLATELET COUNT 400 K/UL (150-450); RED BLOOD COUNT 3.53 M/UL (4.20-5.40); RED CELL DISTRIBUTION WIDTH 14.9 % (11.6-14.8); WHITE BLOOD COUNT 9.4 K/UL (4.8-10.8)
--- NOTE | 2019-10-20 07:34 | Hematology/Onc Progress Note ---
Assessment/Plan Assessment/Plan Assessment and Recs # Leukocytosis, now with gram positive bacteremias well as pna noted --> historically --> PPM site (pocket) infection (redness and pain, bacteremia) and likely pocket abscess - no vegetation seen on ABBIE --> is s'p pm removal and also pocket infection is better --> per cards recs in re to tach/davis --> wbc 15-->19-->17-->15-->13->12-->13-->12>13-->18-->9-->7-->16-->17->9.4 --> ABX cefepime/levaquin--> vanc/angelo-> daptomycin-->Angelo --> ID recs are noted # Anemia of chronic disease due to underlying chronic medical issues, multifactorial --> Anemia workup has been reviewed, cw acd --> No evidence of hemolysis is noted, peripheral smear has been reviewed. --> Hgb goal >7. Transfuse prn. --> Epogen started --> Medications have been reviewed --> low threshold for gi evaluation in case has occult + --> hgb 7.1-->7.8-->8.9->9.2-->8.5-->9.7-->10-->8.8-->9.6-->8.7->8.6-->7.2->8.7- >9.1-->9.2-->9-->8.7-->9.3-->9.8-->10->10.3-->10.8 --> 1 unit prbc 09/27 # Thrombocytois is likely reactive process, is s/p infection --> plt trend 610k-->706k-->354 --> p smear reviewed # Acute hypoxic respiratory failure s/p intubation 11/23- ?ARDS --> on vent/trach # Gram positive bacteremia- real bacteremia- 2ry to above and probable PNA --> per id care # JAVIER initially >2 --> on ivfs # Elevated d-dimer --> venous duplex and v/q scan --> negative results # Dysphagia s/p peg # Thoracic aortic dissection s/p repair early 2017 # Psychiatric history on ativan/haldol # [place] resident # Dvt ppx --> heparin sq The timing of this note does not necessarily reflect the time of the patient was seen. Greatly appreciate consultation. Subjective HEENT: Denies: no symptoms, eye pain, blurred vision, tearing, double vision, ear pain, ear discharge, nose pain, nose congestion, throat pain, throat swelling, mouth pain, mouth swelling, other Cardiovascular: Denies: no symptoms, chest pain, edema, irregular heart rate, lightheadedness, palpitations, syncope, other Respiratory: Denies: no symptoms, cough, shortness of breath, SOB with excertion, SOB at rest, sputum, wheezing, other Gastrointestinal/Abdominal: Denies: no symptoms, abdomen distended, abdominal pain, black stools, tarry stools, blood in stool, constipated, diarrhea, difficulty swallowing, nausea, poor appetite, poor fluid intake, rectal bleeding , vomiting, other Genitourinary: Denies: no symptoms, burning, discharge, frequency, flank pain, hematuria, incontinence, pain, urgency, other Neurologic/Psychiatric: Denies: no symptoms, anxiety, depressed, emotional problems, headache, numbness, paresthesia, pre-existing deficit, seizure, tingling, tremors, weakness, other Endocrine: Denies: no symptoms, excessive sweating, flushing, intolerance to cold, intolerance to heat, increased hunger, increased thirst, increased urine, unexplained weight gain, unexplained weight loss, other Hematologic/Lymphatic: Denies: no symptoms, anemia, easy bleeding, easy bruising, adenopathy, other Allergies: Coded Allergies: No Known Allergies (Unverified , 10/10/17) Subjective 09/16 on vent now, consulted in am pulm, on vent setting, labs noted, hep sq 09/17 meds noted, cbc noted, labs noted, no bleeding 09/18 is to undergo potential v/q scan given abg, labs noted, resless, on ativan, to get haldol today, roman ramesh 09/19 remains agitated, covering, with sacral wound seeping, likely cause of anemia, roman ramesh 09/26 restless, remains agitated, gtube ripped, eval with rn, and vosoghi consulted 09/27 remains on vent, agitated, seen by gi, hgb low, roman George to transfuse 1 unit prbc 09/28 meds noted, no bleeding, on vent, s/p blood tranfusion, cbc pending, roman rn 09/29 remains in the icu, roman rn in the am, agitated, on versed, fentanyl, restraints 09/30 in icu, trach to vent, on gtube feeds, fentanyl, agitated 10/01 in icu, roman Ayoub rn, no bleeding, sleeping, labs noted, hgb >9 10/02 sedated in icu, is on vent, roman rn, more alert and more conversive with face grimaces 10/03 labs have been reviewed, no bleeding, icu, meds reviewed, on fentanyl and versed, to consult psych 10/05 remains on fentanyl, also with restraints, no bleeding, cbc ordered 10/06 remains obtunded, though reactive when proded, labs pending from am 10/07 hypertensive, asleep, no bleeding, roman rn, no major night sweats\ 10/08 formula leaking from gtube site, no bleeding, with some minor residual 10/09 remains on gtube feeds, on lactulose, no major changes, confused but nods 10/10 labs reviewed, lactulose discontinued as having diarrhea, no bleeding 10/12 meds reviewed, no bleeding, heparin given, roman Starr rn in am, comfortable 10/13 labs are noted, no bleeding, cbc is ordered for today, somewhat agitated 10/14 has been complaining of pain and frowning, no bleeding, hgb reviewed 10/15 hgb 10.4, no bleeding, stool is hard, difficult to collect for c.diff 10/16 restless, agitated overnight, getting haldol prn, roman rn at bedside 10/17 labs are noted, no bleeding, meds reviewed, wbc 17k, on abx 10/19 labs are noted, no bleeding, meds noted, no major changes, with v/t, peg Objective Objective Current Medications Medications (Trade) Dose Ordered Sig/Penny Route PRN Reason Start Time Stop Time Status Last Admin Dose Admin Acetaminophen (Tylenol) 325 mg Q4H PRN GT Mild Pain (Pain Scale 1-3) 10/17/19 18:45 11/16/19 18:44 10/18/19 19:20 Acetaminophen (Tylenol) 325 mg Q6H PRN GT Temp >100.5 10/11/19 04:45 10/23/19 10:44 10/19/19 13:21 Ascorbic Acid (Vitamin C) 500 mg DAILY ORAL 10/11/19 09:00 11/05/19 08:59 10/19/19 08:21 Chlorhexidine Gluconate (Ling-Hex 2%) 1 applic DAILY@2000 TOPIC 10/11/19 20:00 12/22/19 19:59 10/19/19 20:28 Clonidine HCl (Catapres TTS-3) 1 patch QWEEK TDERMAL 10/14/19 12:00 01/12/20 11:59 10/14/19 11:51 Dextrose (Dextrose 50%) 25 ml Q30M PRN IV Hypoglycemia 10/11/19 04:30 01/03/20 18:29 Dextrose (Dextrose 50%) 50 ml Q30M PRN IV Hypoglycemia 10/11/19 04:30 01/03/20 18:29 Diltiazem HCl (Cardizem Tab) 90 mg Q8HR GT 10/16/19 14:00 11/09/19 11:59 10/19/19 13:16 Docusate Sodium (Colace) 100 mg Q8HR GT 10/14/19 14:01 11/13/19 14:00 10/17/19 05:20 Epoetin Gelacio (Epoetin Gelacio(ESRD on dialysis)) 10,000 unit MON-MON-MON SUBQ 10/14/19 21:00 01/12/20 20:59 10/18/19 21:09 Haloperidol Lactate (Haldol) 5 mg Q6H PRN IM Agitation 10/11/19 05:00 11/22/19 10:59 10/20/19 00:06 Heparin Sodium (Porcine) (Heparin 5000 units/ml) 5,000 units EVERY 12 HOURS SUBQ 10/11/19 09:00 10/30/19 08:59 10/19/19 20:31 Insulin Aspart (NovoLOG) Q6HR SUBQ 10/11/19 06:00 01/03/20 20:59 Lansoprazole (Prevacid) 30 mg Q12HR GT 10/11/19 09:00 10/27/19 20:59 9/5/20 20:28 Lisinopril (PriniviL) 20 mg BID GT 10/11/19 09:00 11/08/19 17:59 10/19/19 17:23 Meropenem 500 mg/ Sodium Chloride 55 ml @ 110 mls/hr Q12H IVPB 10/20/19 01:00 10/25/19 00:59 10/20/19 01:16 Metoclopramide HCl (Reglan) 5 mg EVERY 6 HOURS GT 10/11/19 06:00 11/08/19 11:59 10/20/19 05:52 Metoprolol Tartrate (Lopressor) 25 mg Q12HR GT 10/11/19 09:00 01/07/20 20:59 10/18/19 08:31 Minoxidil (Loniten) 2.5 mg Q8HR ORAL 10/11/19 06:00 01/08/20 13:59 10/20/19 05:52 Morphine Sulfate (Morphine Sulfate) 2 mg Q6H PRN IVP For Pain 10/16/19 09:45 10/23/19 09:44 10/19/19 14:23 Polyethylene Glycol (Miralax) 17 gm BEDTIME ORAL 10/11/19 21:00 10/31/19 20:59 10/19/19 20:28 Risperidone (RisperDAL) 2 mg BEDTIME ORAL 10/11/19 21:00 11/19/19 20:59 10/19/19 20:28 Sorbitol (sorbitoL) 30 ml EVERY 6 HOURS PRN GT Constipation 10/11/19 06:00 10/29/19 17:59 Vitamin B Complex/ Vit C/Folic Acid (Nephrovite) 1 tab DAILY ORAL 10/11/19 09:00 11/05/19 08:59 10/19/19 08:20 Zinc Sulfate (Zinc Sulfate) 220 mg DAILY ORAL 10/11/19 09:00 10/21/19 08:59 10/19/19 08:19 Last 24 Hour Vital Signs Date Time Temp Pulse Resp B/P (MAP) Pulse Ox O2 Delivery O2 Flow Rate FiO2 10/20/19 05:52 138/55 10/20/19 05:47 56 138/55 10/20/19 05:16 51 20 40 10/20/19 04:00 56 10/20/19 04:00 40 10/20/19 04:00 98.7 51 20 138/55 (82) 100 10/20/19 04:00 Mechanical Ventilator Mechanical Ventilator Mechanical Ventilator 10/20/19 03:42 58 20 40 10/20/19 01:49 52 20 40 10/20/19 00:00 56 10/20/19 00:00 40 10/20/19 00:00 Mechanical Ventilator Mechanical Ventilator Mechanical Ventilator 10/20/19 00:00 98.6 52 20 112/57 (75) 100 10/19/19 23:43 56 20 40 10/19/19 21:57 55 20 40 10/19/19 21:43 133/54 10/19/19 21:19 55 133/54 10/19/19 20:28 55 133/54 10/19/19 20:00 54 10/19/19 20:00 Mechanical Ventilator Mechanical Ventilator Mechanical Ventilator 10/19/19 20:00 40 10/19/19 20:00 98.6 56 20 133/54 (80) 100 10/19/19 19:36 54 20 40 10/19/19 17:23 142/59 10/19/19 16:53 51 20 40 10/19/19 16:00 98.2 56 20 142/59 (86) 95 10/19/19 16:00 Mechanical Ventilator Mechanical Ventilator Mechanical Ventilator 10/19/19 16:00 61 10/19/19 16:00 40 10/19/19 14:53 97.8 10/19/19 14:45 59 22 40 10/19/19 13:51 97.8 10/19/19 13:16 60 147/62 10/19/19 13:16 147/62 10/19/19 12:00 40 10/19/19 12:00 98.1 55 20 147/62 (90) 96 10/19/19 12:00 58 10/19/19 12:00 Mechanical Ventilator Mechanical Ventilator Mechanical Ventilator 10/19/19 10:38 62 29 40 10/19/19 08:48 61 32 40 10/19/19 08:22 58 142/65 10/19/19 08:21 142/65 10/19/19 08:00 Mechanical Ventilator Mechanical Ventilator Mechanical Ventilator 10/19/19 08:00 97.5 58 20 142/65 (90) 96 10/19/19 08:00 56 10/19/19 08:00 40 10/19/19 07:20 54 20 40 10/19/19 07:20 97 10/19/19 05:27 138/57 10/19/19 05:24 53 20 40 10/19/19 04:42 52 10/19/19 04:00 97.0 52 20 138/57 (84) 96 10/19/19 04:00 40 10/19/19 04:00 Mechanical Ventilator Mechanical Ventilator Mechanical Ventilator 10/19/19 04:00 52 10/19/19 03:15 51 20 40 10/19/19 01:09 51 20 40 10/19/19 00:00 Mechanical Ventilator Mechanical Ventilator Mechanical Ventilator 10/19/19 00:00 97.5 52 20 140/61 (87) 99 10/18/19 23:44 55 10/18/19 23:18 53 20 40 10/18/19 21:02 53 21 40 10/18/19 20:47 133/60 10/18/19 20:44 50 10/18/19 20:39 50 10/18/19 20:00 97.7 50 20 133/60 (84) 99 10/18/19 20:00 40 10/18/19 20:00 50 10/18/19 20:00 Mechanical Ventilator Mechanical Ventilator Mechanical Ventilator 10/18/19 19:50 97.8 10/18/19 19:32 49 20 40 10/18/19 18:04 128/56 10/18/19 17:08 53 24 40 10/18/19 16:00 Mechanical Ventilator Mechanical Ventilator Mechanical Ventilator 10/18/19 16:00 97.8 54 20 133/60 (84) 100 10/18/19 16:00 51 10/18/19 16:00 40 10/18/19 15:09 54 20 40 10/18/19 12:41 56 20 40 10/18/19 12:00 40 10/18/19 12:00 55 10/18/19 12:00 97.9 54 20 130/59 (82) 100 10/18/19 12:00 Mechanical Ventilator Mechanical Ventilator Mechanical Ventilator 10/18/19 11:16 56 20 40 10/18/19 09:19 62 27 40 10/18/19 08:32 123/59 10/18/19 08:31 65 123/59 10/18/19 08:00 Mechanical Ventilator Mechanical Ventilator Mechanical Ventilator 10/18/19 08:00 97.7 62 20 120/57 (78) 100 10/18/19 08:00 40 10/18/19 07:38 65 Intake and Output 10/19/19 10/20/19 19:00 07:00 Intake Total 815 ml 640 ml Output Total 350 ml 350 ml Balance 465 ml 290 ml Intake Free Water 200 ml IV Total 55 ml Tube Feeding 520 ml 440 ml Other 240 ml Output Urine Total 350 ml 350 ml # Bowel Movements 1 Labs Test 10/17/19 12:17 10/18/19 03:05 10/19/19 03:15 10/20/19 04:50 POC Whole Blood Glucose 116 MG/DL (74-106) White Blood Count 17.4 K/UL (4.8-10.8) 11.7 K/UL (4.8-10.8) 9.4 K/UL (4.8-10.8) Red Blood Count 3.62 M/UL (4.20-5.40) 3.30 M/UL (4.20-5.40) 3.53 M/UL (4.20-5.40) Hemoglobin 10.8 G/DL (12.0-16.0) 10.0 G/DL (12.0-16.0) 10.8 G/DL (12.0-16.0) Hematocrit 33.5 % (37.0-47.0) 30.6 % (37.0-47.0) 32.7 % (37.0-47.0) Mean Corpuscular Volume 93 FL (80-99) 93 FL (80-99) 93 FL (80-99) Mean Corpuscular Hemoglobin 30.0 PG (27.0-31.0) 30.3 PG (27.0-31.0) 30.6 PG (27.0-31.0) Mean Corpuscular Hemoglobin Concent 32.4 G/DL (32.0-36.0) 32.6 G/DL (32.0-36.0) 33.1 G/DL (32.0-36.0) Red Cell Distribution Width 14.3 % (11.6-14.8) 14.9 % (11.6-14.8) 14.9 % (11.6-14.8) Platelet Count 341 K/UL (150-450) 334 K/UL (150-450) 400 K/UL (150-450) Mean Platelet Volume 5.0 FL (6.5-10.1) 5.1 FL (6.5-10.1) 4.9 FL (6.5-10.1) Neutrophils (%) (Auto) % (45.0-75.0) 72.2 % (45.0-75.0) 75.1 % (45.0-75.0) Lymphocytes (%) (Auto) % (20.0-45.0) 16.3 % (20.0-45.0) 16.9 % (20.0-45.0) Monocytes (%) (Auto) % (1.0-10.0) 7.0 % (1.0-10.0) 5.9 % (1.0-10.0) Eosinophils (%) (Auto) % (0.0-3.0) 3.7 % (0.0-3.0) 1.6 % (0.0-3.0) Basophils (%) (Auto) % (0.0-2.0) 0.9 % (0.0-2.0) 0.5 % (0.0-2.0) Differential Total Cells Counted 100 Neutrophils % (Manual) 91 % (45-75) Lymphocytes % (Manual) 4 % (20-45) Monocytes % (Manual) 5 % (1-10) Eosinophils % (Manual) 0 % (0-3) Basophils % (Manual) 0 % (0-2) Band Neutrophils 0 % (0-8) Nucleated Red Blood Cells 1 /100 WBC Platelet Estimate Adequate Platelet Morphology Normal Hypochromasia 1+ Anisocytosis 1+ Sodium Level 135 MMOL/L (136-145) 134 MMOL/L (136-145) Potassium Level 3.2 MMOL/L (3.5-5.1) 3.5 MMOL/L (3.5-5.1) Chloride Level 97 MMOL/L (98-107) 97 MMOL/L (98-107) Carbon Dioxide Level 28 MMOL/L (21-32) 29 MMOL/L (21-32) Anion Gap 10 mmol/L (5-15) 8 mmol/L (5-15) Blood Urea Nitrogen 49 mg/dL (7-18) 62 mg/dL (7-18) Creatinine 2.0 MG/DL (0.55-1.30) 2.3 MG/DL (0.55-1.30) Estimat Glomerular Filtration Rate 26.7 mL/min (>60) 22.7 mL/min (>60) Glucose Level 98 MG/DL (74-106) 99 MG/DL (74-106) Calcium Level 8.7 MG/DL (8.5-10.1) 8.5 MG/DL (8.5-10.1) Phosphorus Level 2.5 MG/DL (2.5-4.9) 4.7 MG/DL (2.5-4.9) Magnesium Level 2.6 MG/DL (1.8-2.4) 2.9 MG/DL (1.8-2.4) Total Bilirubin 0.4 MG/DL (0.2-1.0) 0.3 MG/DL (0.2-1.0) Aspartate Amino Transf (AST/SGOT) 27 U/L (15-37) 24 U/L (15-37) Alanine Aminotransferase (ALT/SGPT) 13 U/L (12-78) 9 U/L (12-78) Alkaline Phosphatase 167 U/L (46-116) 156 U/L (46-116) C-Reactive Protein, Quantitative 5.2 mg/dL (0.00-0.90) Pro-B-Type Natriuretic Peptide 70867 pg/mL (0-125) Total Protein 6.9 G/DL (6.4-8.2) 6.3 G/DL (6.4-8.2) Albumin 1.8 G/DL (3.4-5.0) 1.7 G/DL (3.4-5.0) Globulin 5.1 g/dL 4.6 g/dL Albumin/Globulin Ratio 0.4 (1.0-2.7) 0.4 (1.0-2.7) Height (Feet): 5 Height (Inches): 5.00 Weight (Pounds): 144 Objective Physical Exam: Vitals: reviewed General: NAD HEENT: nc, at Neck: supple ++tracn/vent Chest: clear breath sounds bilaterally Cardiovascular: RRR, no s3, s4 Abdomen: soft, nontender, nd +gtube Extremities: no cce, normal range of motion Neuro: alert Evan Muhammad MD Oct 20, 2019 07:34
[2019-10-20 07:36] LABS: ALANINE AMINOTRANSFERASE 14 U/L (12-78); ALBUMIN 1.7 G/DL (3.4-5.0); ALBUMIN/GLOBULIN RATIO 0.3 (1.0-2.7); ALKALINE PHOSPHATASE 184 U/L (46-116); ANION GAP 9 mmol/L (5-15); ASPARTATE AMINO TRANSFERASE 26 U/L (15-37); BILIRUBIN,TOTAL 0.3 MG/DL (0.2-1.0); BLOOD UREA NITROGEN 65 mg/dL (7-18); CALCIUM 8.7 MG/DL (8.5-10.1); CARBON DIOXIDE 28 MMOL/L (21-32); CHLORIDE 98 MMOL/L (98-107); CREATININE 2.3 MG/DL (0.55-1.30); PHOSPHORUS 4.4 MG/DL (2.5-4.9); POTASSIUM 3.5 MMOL/L (3.5-5.1); SODIUM 135 MMOL/L (136-145)
--- NOTE | 2019-10-20 07:38 | General Progress Note ---
Assessment/Plan Problem List: (1) S/P aortic dissection repair ICD Codes: Z98.890 - Other specified postprocedural states SNOMED: 505596338, 494769533 (2) Sacral decubitus ulcer, stage IV ICD Codes: L89.154 - Pressure ulcer of sacral region, stage 4 SNOMED: 142246275, 518324494 (3) Anemia ICD Codes: D64.9 - Anemia, unspecified SNOMED: 574570866 (4) GT CLOGGED (5) Feeding by G-tube ICD Codes: Z93.1 - Gastrostomy status SNOMED: 272663506, 113105405 (6) Tracheostomy in place ICD Codes: Z93.0 - Tracheostomy status SNOMED: 283338106 (7) Pacemaker ICD Codes: Z95.0 - Presence of cardiac pacemaker SNOMED: 597493831 (8) Chronic respiratory failure ICD Codes: J96.10 - Chronic respiratory failure, unspecified whether with hypoxia or hypercapnia SNOMED: 83556702 Status: stable, other - Mood has improved he is able to smile there is no continuous tearing overall she looks better today energy looking the last several days continue with the same management Assessment/Plan: GTF monitor for residuals repeat labs abx per ID respiratory care dc planning per primary team Subjective ROS Limited/Unobtainable: No Allergies: Coded Allergies: No Known Allergies (Unverified , 10/10/17) Objective Last 24 Hour Vital Signs Date Time Temp Pulse Resp B/P (MAP) Pulse Ox O2 Delivery O2 Flow Rate FiO2 10/20/19 05:52 138/55 10/20/19 05:47 56 138/55 10/20/19 05:16 51 20 40 10/20/19 04:00 56 10/20/19 04:00 40 10/20/19 04:00 98.7 51 20 138/55 (82) 100 10/20/19 04:00 Mechanical Ventilator Mechanical Ventilator Mechanical Ventilator 10/20/19 03:42 58 20 40 10/20/19 01:49 52 20 40 10/20/19 00:00 56 10/20/19 00:00 40 10/20/19 00:00 Mechanical Ventilator Mechanical Ventilator Mechanical Ventilator 10/20/19 00:00 98.6 52 20 112/57 (75) 100 9/5/20 23:43 56 20 40 10/19/19 21:57 55 20 40 10/19/19 21:43 133/54 10/19/19 21:19 55 133/54 10/19/19 20:28 55 133/54 10/19/19 20:00 54 10/19/19 20:00 Mechanical Ventilator Mechanical Ventilator Mechanical Ventilator 10/19/19 20:00 40 10/19/19 20:00 98.6 56 20 133/54 (80) 100 10/19/19 19:36 54 20 40 10/19/19 17:23 142/59 10/19/19 16:53 51 20 40 10/19/19 16:00 98.2 56 20 142/59 (86) 95 10/19/19 16:00 Mechanical Ventilator Mechanical Ventilator Mechanical Ventilator 10/19/19 16:00 61 10/19/19 16:00 40 10/19/19 14:53 97.8 10/19/19 14:45 59 22 40 10/19/19 13:51 97.8 10/19/19 13:16 60 147/62 10/19/19 13:16 147/62 10/19/19 12:00 40 10/19/19 12:00 98.1 55 20 147/62 (90) 96 10/19/19 12:00 58 10/19/19 12:00 Mechanical Ventilator Mechanical Ventilator Mechanical Ventilator 10/19/19 10:38 62 29 40 10/19/19 08:48 61 32 40 10/19/19 08:22 58 142/65 10/19/19 08:21 142/65 10/19/19 08:00 Mechanical Ventilator Mechanical Ventilator Mechanical Ventilator 10/19/19 08:00 97.5 58 20 142/65 (90) 96 10/19/19 08:00 56 10/19/19 08:00 40 Intake and Output 10/19/19 10/20/19 19:00 07:00 Intake Total 815 ml 640 ml Output Total 350 ml 350 ml Balance 465 ml 290 ml Intake Free Water 200 ml IV Total 55 ml Tube Feeding 520 ml 440 ml Other 240 ml Output Urine Total 350 ml 350 ml # Bowel Movements 1 Laboratory Tests 10/20/19 04:50: White Blood Count 9.4, Red Blood Count 3.53L, Hemoglobin 10.8L, Hematocrit 32.7L , Mean Corpuscular Volume 93, Mean Corpuscular Hemoglobin 30.6, Mean Corpuscular Hemoglobin Concent 33.1, Red Cell Distribution Width 14.9H, Platelet Count 400, Mean Platelet Volume 4.9L, Neutrophils (%) (Auto) 75.1H, Lymphocytes (%) (Auto) 16.9L, Monocytes (%) (Auto) 5.9, Eosinophils (%) (Auto) 1.6, Basophils (%) (Auto) 0.5, Sodium Level [Pending], Potassium Level [Pending] , Chloride Level [Pending], Carbon Dioxide Level [Pending], Blood Urea Nitrogen [Pending], Creatinine [Pending], Estimat Glomerular Filtration Rate [Pending], Glucose Level [Pending], Calcium Level [Pending], Phosphorus Level [Pending], Magnesium Level [Pending], Total Bilirubin [Pending], Aspartate Amino Transf ( AST/SGOT) [Pending], Alanine Aminotransferase (ALT/SGPT) [Pending], Alkaline Phosphatase [Pending], Total Protein [Pending], Albumin [Pending], Globulin [ Pending] Height (Feet): 5 Height (Inches): 5.00 Weight (Pounds): 144 General Appearance: no apparent distress EENT: normal ENT inspection Neck: supple Cardiovascular: normal rate Respiratory/Chest: decreased breath sounds Abdomen: normal bowel sounds, non tender, soft Extremities: non-tender Inder Mccauley MD Oct 20, 2019 07:38
[2019-10-20 08:00] VITALS: BP 154/55
--- NOTE | 2019-10-20 08:28 | Pulmonology Progress Note ---
Yara Castro CHIPPER OPERATOR 10/20/19 0828: Subjective ROS Limited/Unobtainable: Yes Allergies: Coded Allergies: No Known Allergies (Unverified , 10/10/17) Subjective in [place] now on CPAP trials with PS 8 , yesterday tolerated 8 hrs no signs of resp distress denies CP, SOB afebrile, leukocytosis resolved Objective Last 24 Hour Vital Signs Date Time Temp Pulse Resp B/P (MAP) Pulse Ox O2 Delivery O2 Flow Rate FiO2 10/20/19 08:00 97.9 53 20 154/55 (88) 98 10/20/19 07:00 51 15 40 10/20/19 07:00 96 10/20/19 05:52 138/55 10/20/19 05:47 56 138/55 10/20/19 05:16 51 20 40 10/20/19 04:00 56 10/20/19 04:00 40 10/20/19 04:00 98.7 51 20 138/55 (82) 100 10/20/19 04:00 Mechanical Ventilator Mechanical Ventilator Mechanical Ventilator 10/20/19 03:42 58 20 40 10/20/19 01:49 52 20 40 10/20/19 00:00 56 10/20/19 00:00 40 10/20/19 00:00 Mechanical Ventilator Mechanical Ventilator Mechanical Ventilator 10/20/19 00:00 98.6 52 20 112/57 (75) 100 10/19/19 23:43 56 20 40 10/19/19 21:57 55 20 40 10/19/19 21:43 133/54 10/19/19 21:19 55 133/54 10/19/19 20:28 55 133/54 10/19/19 20:00 54 10/19/19 20:00 Mechanical Ventilator Mechanical Ventilator Mechanical Ventilator 10/19/19 20:00 40 10/19/19 20:00 98.6 56 20 133/54 (80) 100 10/19/19 19:36 54 20 40 10/19/19 17:23 142/59 10/19/19 16:53 51 20 40 10/19/19 16:00 98.2 56 20 142/59 (86) 95 10/19/19 16:00 Mechanical Ventilator Mechanical Ventilator Mechanical Ventilator 10/19/19 16:00 61 10/19/19 16:00 40 10/19/19 14:53 97.8 10/19/19 14:45 59 22 40 10/19/19 13:51 97.8 10/19/19 13:16 60 147/62 10/19/19 13:16 147/62 10/19/19 12:00 40 10/19/19 12:00 98.1 55 20 147/62 (90) 96 10/19/19 12:00 58 10/19/19 12:00 Mechanical Ventilator Mechanical Ventilator Mechanical Ventilator 10/19/19 10:38 62 29 40 10/19/19 08:48 61 32 40 Intake and Output 10/19/19 10/20/19 19:00 07:00 Intake Total 815 ml 640 ml Output Total 350 ml 350 ml Balance 465 ml 290 ml Intake Free Water 200 ml IV Total 55 ml Tube Feeding 520 ml 440 ml Other 240 ml Output Urine Total 350 ml 350 ml # Bowel Movements 1 Objective General Appearance: no apparent distress, bedridden middle age chronically ill looking female on vent AC 500-20- 40%, PEEP 5, awake, calm-currently on CPAP PS8 Lines, tubes and drains: left jugular HD catheter HEENT: normocephalic, atraumatic, anicteric, trach - Shiley #7 cuffed XLT, secretions small amount, yellow color , thick consistency Respiratory/Chest: no accessory muscle use, BS overall CTAB Cardiovascular/Chest: normal rate, regular rhythm - SR on tele Abdomen: normal bowel sounds, non tender, soft, G tube Genitourinary/Rectal: Norman Extremities: no edema Skin Exam: warm/dry, multiple tattoos all over the body Neurologic: awake, no gross focal Musculoskeletal: atrophy - BLE Laboratory Tests 10/20/19 04:50: White Blood Count 9.4, Red Blood Count 3.53L, Hemoglobin 10.8L, Hematocrit 32.7L , Mean Corpuscular Volume 93, Mean Corpuscular Hemoglobin 30.6, Mean Corpuscular Hemoglobin Concent 33.1, Red Cell Distribution Width 14.9H, Platelet Count 400, Mean Platelet Volume 4.9L, Neutrophils (%) (Auto) 75.1H, Lymphocytes (%) (Auto) 16.9L, Monocytes (%) (Auto) 5.9, Eosinophils (%) (Auto) 1.6, Basophils (%) (Auto) 0.5, Sodium Level 135L, Potassium Level 3.5, Chloride Level 98, Carbon Dioxide Level 28, Anion Gap 9, Blood Urea Nitrogen 65H, Creatinine 2.3H, Estimat Glomerular Filtration Rate 22.7, Glucose Level 123H, Calcium Level 8.7, Phosphorus Level 4.4, Magnesium Level 3.0H, Total Bilirubin 0.3, Aspartate Amino Transf (AST/SGOT) 26, Alanine Aminotransferase (ALT/SGPT) 14, Alkaline Phosphatase 184H, Total Protein 6.7, Albumin 1.7L, Globulin 5.0, Albumin/Globulin Ratio 0.3L Current Medications Medications (Trade) Dose Ordered Sig/Penny Route PRN Reason Start Time Stop Time Status Last Admin Dose Admin Acetaminophen (Tylenol) 325 mg Q4H PRN GT Mild Pain (Pain Scale 1-3) 10/17/19 18:45 11/16/19 18:44 10/18/19 19:20 Acetaminophen (Tylenol) 325 mg Q6H PRN GT Temp >100.5 10/11/19 04:45 10/23/19 10:44 10/19/19 13:21 Ascorbic Acid (Vitamin C) 500 mg DAILY ORAL 10/11/19 09:00 11/05/19 08:59 10/19/19 08:21 Chlorhexidine Gluconate (Ling-Hex 2%) 1 applic DAILY@1999 TOPIC 10/11/19 20:00 12/22/19 19:59 10/19/19 20:28 Clonidine HCl (Catapres TTS-3) 1 patch QWEEK TDERMAL 10/14/19 12:00 01/12/20 11:59 10/14/19 11:51 Dextrose (Dextrose 50%) 25 ml Q30M PRN IV Hypoglycemia 10/11/19 04:30 01/03/20 18:29 Dextrose (Dextrose 50%) 50 ml Q30M PRN IV Hypoglycemia 10/11/19 04:30 01/03/20 18:29 Diltiazem HCl (Cardizem Tab) 90 mg Q8HR GT 10/16/19 14:00 11/09/19 11:59 10/19/19 13:16 Docusate Sodium (Colace) 100 mg Q8HR GT 10/14/19 14:01 11/13/19 14:00 10/17/19 05:20 Epoetin Gelacio (Epoetin Gelacio(ESRD on dialysis)) 10,000 unit MON-MON-MON SUBQ 10/14/19 21:00 01/12/20 20:59 10/18/19 21:09 Haloperidol Lactate (Haldol) 5 mg Q6H PRN IM Agitation 10/11/19 05:00 11/22/19 10:59 10/20/19 00:06 Heparin Sodium (Porcine) (Heparin 5000 units/ml) 5,000 units EVERY 12 HOURS SUBQ 10/11/19 09:00 10/30/19 08:59 10/19/19 20:31 Insulin Aspart (NovoLOG) Q6HR SUBQ 10/11/19 06:00 01/03/20 20:59 Lansoprazole (Prevacid) 30 mg Q12HR GT 10/11/19 09:00 10/27/19 20:59 10/19/19 20:28 Lisinopril (PriniviL) 20 mg BID GT 10/11/19 09:00 11/08/19 17:59 10/19/19 17:23 Meropenem 500 mg/ Sodium Chloride 55 ml @ 110 mls/hr Q12H IVPB 10/20/19 01:00 10/25/19 00:59 10/20/19 01:16 Metoclopramide HCl (Reglan) 5 mg EVERY 6 HOURS GT 10/11/19 06:00 11/08/19 11:59 10/20/19 05:52 Metoprolol Tartrate (Lopressor) 25 mg Q12HR GT 10/11/19 09:00 01/07/20 20:59 10/18/19 08:31 Minoxidil (Loniten) 2.5 mg Q8HR ORAL 10/11/19 06:00 01/08/20 13:59 10/20/19 05:52 Morphine Sulfate (Morphine Sulfate) 2 mg Q6H PRN IVP For Pain 10/16/19 09:45 10/23/19 09:44 10/19/19 14:23 Polyethylene Glycol (Miralax) 17 gm BEDTIME ORAL 10/11/19 21:00 10/31/19 20:59 10/19/19 20:28 Risperidone (RisperDAL) 2 mg BEDTIME ORAL 10/11/19 21:00 11/19/19 20:59 10/19/19 20:28 Sorbitol (sorbitoL) 30 ml EVERY 6 HOURS PRN GT Constipation 10/11/19 06:00 10/29/19 17:59 Vitamin B Complex/ Vit C/Folic Acid (Nephrovite) 1 tab DAILY ORAL 10/11/19 09:00 11/05/19 08:59 10/19/19 08:20 Zinc Sulfate (Zinc Sulfate) 220 mg DAILY ORAL 10/11/19 09:00 10/21/19 08:59 10/19/19 08:19 Assessment/Plan Assessment/Plan ASSESSMENT Acute on chronic hypoxemic respiratory failure ( trach dependent), now on vent Tracheostomy status, s/p change to cuffed trach Sepsis Pulmonary edema Pleural effusion -worsening left pl effusion s/p thoracentesis L pleural effusion 09/26 -900 ml Pneumonia with MDR Pseudomonas UTI CHF ? cardiorenal COPD Acute kidney injury and chronic kidney disease-requiring start of HD Hypertension Atrial fibrillation Moderate pulm HTN Moderate AR Dysphagia , feeding by G-tube Electrolyte abnormalities Anemia Toxic metabolic encephalopathy likely due to sepsis and ARF HTN PAF Fevers. leukocytosis -resolved PLAN OF CARE PAULIE on vent AC trach changed 8/4 pm from uncuffed to cuffed Shiley#[address] chest w/out contrast: - Bilateral pleural effusions, right greater than left, with bilateral lower lobe consolidation or volume loss. -Ground-glass densities in the upper lobes bilaterally. This is not specific. -Tracheostomy. -Increased superior mediastinal density. Stability of adenopathy cannot be excluded. -Atherosclerotic change. -Gastrostomy. -Ascites. -Left renal stent with left hydronephrosis and renal atrophy. VQ scan -> low probability for PE worsening resp status was due to need for HD, now after HD started, resp status improving, down to PEEP 5 and AC 20 trach care , pulmonary toilet Mucomyst was prior dc given lots of thin secretions, continue Duoneb prn rapid COVID 19 NGT x3 off Fentanyl gtt since 10/09 FiO2 down to 40% last ABG stable 10/09 CXR 10/14 -increased right pleural fluid and parenchymal disease, doubt PNA likely fluid tolerating CPAP trials with PS 8 FiO2 40% 10/18-for 8 hrs continue CPAP trials as tolerated may continue in subacute upon discharge s/p thoracentesis L pleural effusion 09/26 am -> 900 ml fluid analysis noted, unlikely empyema given small # of WBC fup with fluid cx ( apparently never sent despite orders) cytology -> NGT, no malignant cells aspiration precautions venous Duplex BLE -> NGT DVT prophylaxis pulm toilet, BP regimen optimized as per nephro monitor volumes was on gentle IVF-> dc s/p prior diuretic-Lasix require initiation of HD continue further HD as per nephro with close monitoring of volumes, renal parameters and lytes -per nephro recs abx as per ID- s/p gent x 1, now on Vanco and Zerbaxa , completed 10/02 SCX 09/15 + Proteus, SCX 09/22 Pseudomonas MDR UCX 09/14 + Providencia , UCX 09/22 VRE - K only BCX 09/14 Staph epidermidis, BCX 09/15 NGT , BCX 09/22 and 09/26 - NGTD UCX 10/07 + VRE, Laura- per ID started on Dapto 10/10- pancx 10/14 due to fever and leukocytosis 10/14 BCX NGTD UCX 10/14 + Providencia, MDR, SCX+ Proteus ESBL, Pseudomonas MDR CXR 10/12 stable leuk 10/17, started on meropenem 10/17 -> as per ID recs, CXR 10/17 bilateral pleural effusions demonstrated. Mild interstitial and airspace congestion unchanged. leuk resolved, no fevers ECHO with pEF , moderate pulm HTN and moderate AR BP management with current regimen of BB, Cardizem and Hydralazine, remains in SR monitor HH with goal to keep Hgb >7, heme on board on EPO supportive care pain management wound care bowel regimen stable for dc from pulm standpoint dc plan in progress Note; time of this note does not reflect the actual time patient was seen. [facility] was down case discussed and evaluated by supervising physician Juve Martinez MD 10/20/19 1153: Subjective Allergies: Coded Allergies: No Known Allergies (Unverified , 10/10/17) Assessment/Plan Assessment/Plan Patient seen and examined with CHIPPER OPERATOR. Agree with above A&P as it reflects our joint deliberations. Yara Castro NP Oct 20, 2019 08:28 Juve Martinez MD Oct 20, 2019 11:53
[2019-10-20] MEDS: Ascorbic Acid 500mg tab ORAL SCH (08:54)
[2019-10-20] MEDS: Nephrovite tab (Rena-Vite) ORAL SCH (08:54)
[2019-10-20] MEDS: Zinc Sulfate 220mg ORAL SCH (08:54)
[2019-10-20] MEDS: Acetaminophen 650mg/20.3ml GT PRN ×2 (08:54→16:42)
[2019-10-20] MEDS: Lisinopril 20mg tab GT SCH ×2 (08:55→17:29)
[2019-10-20] MEDS: Heparin 5000 units/ml inj SUBQ SCH ×2 (08:56→20:19)
--- NOTE | 2019-10-20 09:59 | Infectious Diseases Prog Note ---
Assessment/Plan 49yo F with: Fever, recurrent; SP Leukocytosis, recurrent -10/14 Bcx NTD Acute hypoxic resp failure: Now on vent, worsening, FiO2 100% > 80% 09/27 > 60% >40% 10/08 >30% 10/09 >40% 10/14 Pneumonia, COVID19 neg x3 - MDR PsA pneumonia,s pr x 10/14 CXR: Increased right pleural fluid and parenchymal disease, since previous exam of 10/09/2019. Stable pleural and parenchymal disease on the left sp cx ESBL P. mirabilis, MDR P.a. ( S only to Gent) 10/07 CXR: Bilateral infiltrates versus edema, left greater than right pleural effusions are again demonstrated, unchanged. There is slightly better inspiration currently. 09/29 CXR: Bilateral edema versus infiltrates appears slightly worse than on the prior study. There is probably some pleural fluid on the left. 09/26 S/P thoracentesis, 900cc removed, only 67 WBC in fluid analysis, unlikely empyema 09/26 CXR: Worsening R perihilar opacity 09/26 BCx Neg 09/24 CXR: Previously demonstrated right lateral basilar lucency is no longer evident, was presumably a skin fold artifact. Bilateral infiltrates and left pleural effusion are probably unchanged allowing for slight differences in technique. 09/22 Resp cx + MDR PsA (S-gent; I-colistin; R-levofloxacin, Zosyn, angelo) 09/22 BCx NTD 09/22 CXR: worsening BL pna 09/22 UA w/ persistent pyuria, now on HD, UCx +VRE, most likely colonizer as improving wo tx for this 09/19 V/Q scan, low probability of PE 09/18 Rapid COVID PCR neg 09/18 CT chest: Markedly suboptimal examination due to lack of IV contrast material. Bilateral pleural effusions, right greater than left, with bilateral lower lobe consolidation or volume loss. Ground glass densities in the upper lobes bilaterally. This is not specific. Tracheostomy. Increased superior mediastinal density. Stability of adenopathy cannot be excluded. Atherosclerotic change. Gastrostomy. Ascites. Left renal stent with left hydronephrosis and renal atrophy. 09/17 Chest US: Trace right and small left pleural effusions. No safe window identified for bedside thoracentesis. Note that the majority of the left pleural effusion is subpulmonic. 09/16 CXR: Worsening of right lung infiltrates and right effusion. V. duplex: NO DVT D-dimer elevated 09/15 Rapid COVID PCR neg 09/15 Sp cx ESBL P. mirablis 09/14 CXR: Bilateral airspace opacities, preferentially involving the right lung, consistent with multifocal infiltrate. Trace bilateral pleural effusions. No pneumothorax. Rapid COVID PCR neg Urine legionella neg 09/16 GPC bacteremia, real vs contaminant; does have hx of infected PPM- 09/14 Bcx 2/ S. epidermis; 09/15, , Bcx Neg 2d echo: no vegetations seen UTI, recurrent 09/14 u/a wbc tnct, nit neg, leuk +3; ucx >100k MDR P. stuarti (S Ceftriaxone, Meropenem) 09/22 UA w/ ongoing pyuria, unchanged 10/07 u/a wbc tnct, nit neg, leuk ; ucx >100k VRE 10/14 u/a wbc tnct; ucx >100k ESBL P. stuarti (S ertapenem, aztreonam) Unstageable sacral ulceration JAVIER on CKD --> now on HD Renal US: Limited exam due to abdominal ascites and shadowing from bowel gas. CT recommended for more sensitive evaluation. Moderate right hydronephrosis. Increased renal parenchymal echogenicity suggesting intrinsic/ medical renal disease. Question indwelling left ureteral stent versus artifact. Bladder not visualized. 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 epi-11/2018, sp > 6weeks IV vancomycin 11/27 SP ABBIE: no evidence for vegetation on any of the valves 11/26/18 SP PPM removal: OR findings:The fibrous capsule enclosing the generator was then opened and there was a [id number] amount of yellowish fluid drainage. The generator was then removed.Atrial and ventricular leads were detached. The necrotic tissue of the pocket was then removed and the pocket was flushed with an antibiotic solution. Capsule, wound tissue and lead tip cx: Neg 2d echo: no vegetation seen US chest: 4.6 x 3.4 x 0.9 cm hypoechoic/anechoic area overlying left chest pacemaker power pack. This could represent either a discrete fluid collection or a focal area of very edematous tissue. Infected fluid pocket also possible. 11/18 Bcx 3/4 S. epi; 11/20 Bcx neg; 11/24 Bcx Neg; 11/27 Bcx Neg Hx of PNA 11/2019? sp cx PsA (arnett S), ABC (I Ceftriaxone; otherwise negative) Sp cx MRSA, ABC (I Ceftriaxone; otherwise S) PMH: Afib HTN Dysphagia sp GT Aortic dissection s/p repair 2017, S/p PPM Parkinson's Disease Schizophrenia Anxiety COPD Chronic resp failure s/p trach Hx of tracheal bleeding [place] resident ([facility]) Plan: Continue Meropenem #2/7 for UTI and PNA given recurrent leukocytosis ( Note not treating MDR P.a. as it is likely a colonizer and patient stable without CXR evidence of PNA and leukocytosis resolved on Meropenem) 10/14 SP Daptomycin #5 10/03 SP Zerbaxa #6, gent #7 for MDR PsA pna 09/29 SP vanco #15 for S.epi in BCx 09/27 SP angelo #13 09/16 SP Cefepime #3, Levaquin #3 Monitor CBC/CMP, temperatures trach/ peg care Aspiration precautions D/w RN and pulmonary team Thank you for this consultation. Will continue to follow along with you. Subjective Allergies: Coded Allergies: No Known Allergies (Unverified , 10/10/17) Afebrile Stable on Vent 40% O2 Leukocytosis resolved with meropenem No in tele/step down Objective Last 24 Hour Vital Signs Date Time Temp Pulse Resp B/P (MAP) Pulse Ox O2 Delivery O2 Flow Rate FiO2 10/20/19 09:24 97.9 10/20/19 08:55 53 154/55 10/20/19 08:55 154/55 10/20/19 08:48 56 29 40 10/20/19 08:00 97.9 53 20 154/55 (88) 98 10/20/19 08:00 40 10/20/19 08:00 56 10/20/19 08:00 Mechanical Ventilator Mechanical Ventilator Mechanical Ventilator 10/20/19 07:00 51 15 40 10/20/19 07:00 96 10/20/19 05:52 138/55 10/20/19 05:47 56 138/55 10/20/19 05:16 51 20 40 10/20/19 04:00 56 10/20/19 04:00 40 10/20/19 04:00 98.7 51 20 138/55 (82) 100 10/20/19 04:00 Mechanical Ventilator Mechanical Ventilator Mechanical Ventilator 10/20/19 03:42 58 20 40 10/20/19 01:49 52 20 40 10/20/19 00:00 56 10/20/19 00:00 40 10/20/19 00:00 Mechanical Ventilator Mechanical Ventilator Mechanical Ventilator 10/20/19 00:00 98.6 52 20 112/57 (75) 100 10/19/19 23:43 56 20 40 10/19/19 21:57 55 20 40 10/19/19 21:43 133/54 10/19/19 21:19 55 133/54 10/19/19 20:28 55 133/54 10/19/19 20:00 54 10/19/19 20:00 Mechanical Ventilator Mechanical Ventilator Mechanical Ventilator 10/19/19 20:00 40 10/19/19 20:00 98.6 56 20 133/54 (80) 100 10/19/19 19:36 54 20 40 10/19/19 17:23 142/59 10/19/19 16:53 51 20 40 10/19/19 16:00 98.2 56 20 142/59 (86) 95 10/19/19 16:00 Mechanical Ventilator Mechanical Ventilator Mechanical Ventilator 10/19/19 16:00 61 10/19/19 16:00 40 10/19/19 14:53 97.8 10/19/19 14:45 59 22 40 10/19/19 13:51 97.8 10/19/19 13:16 60 147/62 10/19/19 13:16 147/62 10/19/19 12:00 40 10/19/19 12:00 98.1 55 20 147/62 (90) 96 10/19/19 12:00 58 10/19/19 12:00 Mechanical Ventilator Mechanical Ventilator Mechanical Ventilator 10/19/19 10:38 62 29 40 Height (Feet): 5 Height (Inches): 5.00 Weight (Pounds): 144 Gen: On vent 40% O2 HEENT; NCAT, Intubated Respiratory: Equal rise and fall, RRR Gastrointestinal: Soft ND Skin: No rash on exposed skin Laboratory Tests Test 10/20/19 04:50 White Blood Count 9.4 K/UL (4.8-10.8) Red Blood Count 3.53 M/UL (4.20-5.40) L Hemoglobin 10.8 G/DL (12.0-16.0) L Hematocrit 32.7 % (37.0-47.0) L Mean Corpuscular Volume 93 FL (80-99) Mean Corpuscular Hemoglobin 30.6 PG (27.0-31.0) Mean Corpuscular Hemoglobin Concent 33.1 G/DL (32.0-36.0) Red Cell Distribution Width 14.9 % (11.6-14.8) H Platelet Count 400 K/UL (150-450) Mean Platelet Volume 4.9 FL (6.5-10.1) L Neutrophils (%) (Auto) 75.1 % (45.0-75.0) H Lymphocytes (%) (Auto) 16.9 % (20.0-45.0) L Monocytes (%) (Auto) 5.9 % (1.0-10.0) Eosinophils (%) (Auto) 1.6 % (0.0-3.0) Basophils (%) (Auto) 0.5 % (0.0-2.0) Sodium Level 135 MMOL/L (136-145) L Potassium Level 3.5 MMOL/L (3.5-5.1) Chloride Level 98 MMOL/L (98-107) Carbon Dioxide Level 28 MMOL/L (21-32) Anion Gap 9 mmol/L (5-15) Blood Urea Nitrogen 65 mg/dL (7-18) H Creatinine 2.3 MG/DL (0.55-1.30) H Estimat Glomerular Filtration Rate 22.7 mL/min (>60) Glucose Level 123 MG/DL (74-106) H Calcium Level 8.7 MG/DL (8.5-10.1) Phosphorus Level 4.4 MG/DL (2.5-4.9) Magnesium Level 3.0 MG/DL (1.8-2.4) H Total Bilirubin 0.3 MG/DL (0.2-1.0) Aspartate Amino Transf (AST/SGOT) 26 U/L (15-37) Alanine Aminotransferase (ALT/SGPT) 14 U/L (12-78) Alkaline Phosphatase 184 U/L (46-116) H Total Protein 6.7 G/DL (6.4-8.2) Albumin 1.7 G/DL (3.4-5.0) L Globulin 5.0 g/dL Albumin/Globulin Ratio 0.3 (1.0-2.7) L Current Medications Medications (Trade) Dose Ordered Sig/Penny Route PRN Reason Start Time Stop Time Status Last Admin Dose Admin Acetaminophen (Tylenol) 325 mg Q4H PRN GT Mild Pain (Pain Scale 1-3) 10/17/19 18:45 11/16/19 18:44 10/20/19 08:54 Acetaminophen (Tylenol) 325 mg Q6H PRN GT Temp >100.5 10/11/19 04:45 10/23/19 10:44 10/19/19 13:21 Ascorbic Acid (Vitamin C) 500 mg DAILY ORAL 10/11/19 09:00 11/05/19 08:59 10/20/19 08:54 Chlorhexidine Gluconate (Ling-Hex 2%) 1 applic DAILY@2000 TOPIC 10/11/19 20:00 12/22/19 19:59 10/19/19 20:28 Clonidine HCl (Catapres TTS-3) 1 patch QWEEK TDERMAL 10/14/19 12:00 01/12/20 11:59 10/14/19 11:51 Dextrose (Dextrose 50%) 25 ml Q30M PRN IV Hypoglycemia 10/11/19 04:30 01/03/20 18:29 Dextrose (Dextrose 50%) 50 ml Q30M PRN IV Hypoglycemia 10/11/19 04:30 01/03/20 18:29 Diltiazem HCl (Cardizem Tab) 90 mg Q8HR GT 10/16/19 14:00 11/09/19 11:59 10/19/19 13:16 Docusate Sodium (Colace) 100 mg Q8HR GT 10/14/19 14:01 11/13/19 14:00 10/17/19 05:20 Epoetin Gelacio (Epoetin Gelacio(ESRD on dialysis)) 10,000 unit MON-MON-MON SUBQ 10/14/19 21:00 01/12/20 20:59 10/18/19 21:09 Haloperidol Lactate (Haldol) 5 mg Q6H PRN IM Agitation 10/11/19 05:00 11/22/19 10:59 10/20/19 00:06 Heparin Sodium (Porcine) (Heparin 5000 units/ml) 5,000 units EVERY 12 HOURS SUBQ 10/11/19 09:00 10/30/19 08:59 10/20/19 08:56 Insulin Aspart (NovoLOG) Q6HR SUBQ 10/11/19 06:00 01/03/20 20:59 Lansoprazole (Prevacid) 30 mg Q12HR GT 10/11/19 09:00 10/27/19 20:59 10/20/19 08:54 Lisinopril (PriniviL) 20 mg BID GT 10/11/19 09:00 11/08/19 17:59 10/20/19 08:55 Meropenem 500 mg/ Sodium Chloride 55 ml @ 110 mls/hr Q12H IVPB 10/20/19 01:00 10/25/19 00:59 10/20/19 01:16 Metoclopramide HCl (Reglan) 5 mg EVERY 6 HOURS GT 10/11/19 06:00 11/08/19 11:59 10/20/19 05:52 Metoprolol Tartrate (Lopressor) 25 mg Q12HR GT 10/11/19 09:00 01/07/20 20:59 10/18/19 08:31 Minoxidil (Loniten) 2.5 mg Q8HR ORAL 10/11/19 06:00 01/08/20 13:59 10/20/19 05:52 Morphine Sulfate (Morphine Sulfate) 2 mg Q6H PRN IVP For Pain 10/16/19 09:45 10/23/19 09:44 10/19/19 14:23 Polyethylene Glycol (Miralax) 17 gm BEDTIME ORAL 10/11/19 21:00 10/31/19 20:59 10/19/19 20:28 Risperidone (RisperDAL) 2 mg BEDTIME ORAL 10/11/19 21:00 11/19/19 20:59 10/19/19 20:28 Sorbitol (sorbitoL) 30 ml EVERY 6 HOURS PRN GT Constipation 10/11/19 06:00 10/29/19 17:59 Vitamin B Complex/ Vit C/Folic Acid (Nephrovite) 1 tab DAILY ORAL 10/11/19 09:00 11/05/19 08:59 10/20/19 08:54 Zinc Sulfate (Zinc Sulfate) 220 mg DAILY ORAL 10/11/19 09:00 10/21/19 08:59 10/20/19 08:54 Deni Gilbert MD Oct 20, 2019 09:59
--- NOTE | 2019-10-20 11:30 | Nephrology Progress Note ---
Assessment/Plan Problem List: (1) JAVIER (acute kidney injury) (2) Renal failure (ARF), acute on chronic (3) Dehydration (4) Electrolyte imbalance (5) Anemia (6) Respiratory failure, acute and chronic (7) COPD with exacerbation Assessment Patient is presented with sepsis and pneumonia and UTI Patient has acute renal failure, possible underlying chronic kidney failure Severe anemia Electrolyte imbalances: Hyponatremia, hypo-kalemia Chronic respiratory failure, COPD exacerbation Plan October 19: Patient responded to Zaroxolyn. Urine output increased. Will try 10 mg Zaroxolyn again today. Check renal parameters tomorrow. Dialysis as needed. October 18: Last dialysis October 16. Serum creatinine rising. Oliguria persists. Continue to monitor renal parameters and dialysis as needed. October 17: It appears that the patient received dialysis last night and the dialysis nurse changed her mind about delaying to today. Today's labs reviewed. Electrolyte abnormalities corrected. Continue per consultants. October 16: Late note entry due to system problem at the [facility] today.Patient due for dialysis today. Dialysis nurse informed that due to few emergencies if she can be done tomorrow. No chemistry panel for today." We will order labs on dialysis tomorrow. October 15: Last dialysis October 13. Labs were reviewed. Urine output very low. Will dialyze and ultrafiltrate tomorrow. Per consultants. October 14: Dialyzed yesterday. Labs reviewed. Medication list reviewed. Continue per consultants. October 13: Patient seen on dialysis. Tolerating well. Will check labs tomorrow. October 12: Blood pressure stable. Labs reviewed. BUN rising. Remains oliguric. Dialysis tomorrow. October 11: Blood pressure is stable. Labs reviewed. Continue as is. Dialysis as needed October 10: Blood pressure medication adjusted. Will check lab tomorrow. Dialysis as needed. Urine output remains low. October 09: Lab reviewed. Remains oliguric. Will give trial of Zaroxolyn. Continue per consultants. Adjust blood pressure medication. Will add Zaroxolyn and increased dose of Cardizem and add clonidine patch for better BP control October 08: Labs reviewed. Patient oliguric. Blood pressure elevated, BP medication adjusted. Recheck lab tomorrow. Dialysis and ultrafiltration as needed. October 07: Labs reviewed. Patient was dialyzed yesterday. 3000 mL fluid was removed. Patient appears to need periodic (twice a week minimum) dialysis for ultrafiltration. Continue to monitor renal parameters. Continue per consultants. October 06: Labs reviewed. Discussed with pulmonary. Will attempt dialysis and ultrafiltration. Continue per consultants. October 05: Lab reviewed. Serum creatinine rising. Blood pressure stabilized. Will recheck lab tomorrow. Dialysis as needed. Will increase lisinopril to 10 mg twice a day. October 04: Lab reviewed. Blood pressure medication adjusted since the patient is hypotensive. Serum creatinine rising. Recheck labs tomorrow. Dialysis as needed. Discussed with RN. October 03: Lab reviewed. Zestril added to BP medication. 1 dose of Seroquel ordered for agitation. Continue to monitor renal parameters. Continue per consultants. October 02: Lab reviewed. Potassium supplement IV given. 3% saline 250 cc ordered. Responded well to Zaroxolyn yesterday. Will continue to monitor electrolytes and renal parameters. Will increase minoxidil to 2.5 mg every 6 hours. October 01: Labs reviewed. Potassium supplement given. Last dialysis September 29. Serum creatinine rising gradually. Urine output very low. Patient appears to continue to need dialysis at least twice a week. Blood pressure still running high I will switch the hydralazine to minoxidil. We will give 1 dose of Zaroxolyn 10 mg today. Will check renal parameters tomorrow. September 30: Patient dialyzed yesterday. 3 L removed. Labs reviewed. Potassium supplement given. Continue per consultants. It appears that the patient required dialysis 2-3 times a week. September 29: Lab reviewed. Chest x-ray result noted. Continues to have pulmonary congestion. Urine output low. Will attempt dialysis again today with ultrafiltration. September 28: Lab reviewed. ABG reviewed. Potassium supplement given. No dialysis at this point. Will eval patient status and renal parameters daily. September 27: Lab reviewed. Last dialysis September 25. Continue to monitor renal parameters. Hemodialysis as needed. September 26: Lab reviewed. Dialyzed yesterday. Potassium supplement given. Medication list reviewed. Will observe renal parameters and arrange for dialysis as needed. September 25: Lab reviewed. Currently on hemodialysis. Tolerating well. Stable from renal standpoint of view. Blood pressure medication adjusted by increasing hydralazine. September 24: Lab reviewed. ABG reviewed. Both lab and ABG much improved. Patient was dialyzed yesterday. We will attempt dialysis tomorrow again. Will adjust that blood pressure medication dosages. September 23: Lab reviewed. ABG reviewed. Patient acidotic. IV bicarb 1 dose is given. Patient has dialysis catheter. Will order dialysis for ultrafiltration and correction of acid-base. Discussed with ERASMO Mohr. September 22: Labs reviewed. Potassium high. Kayexalate and Reglan given. Will discuss with the consultants regarding initiation of dialysis. September 21: Patient is being sedated. Labs reviewed. Potassium supplement discontinued. GFR 20. Continue per current treatment plan. Dialysis and ultrafiltration is a consideration. September 20: Patient periodically agitated. Labs reviewed. Creatinine 2.4. Medication reviewed. Continue per consultants. Calculated creatinine clearance 21. May need isolated ultrafiltration on dialysis. Will discuss with PMD. Meanwhile hemoglobin is lower, defer transfusion to PMD. September 19: DC IV fluid. Zaroxolyn via GT tube. Potassium supplement. Attempt to diurese. Chest CT as bilateral pleural effusion. If diuresis unsuccessful, will consider dialysis and ultrafiltration. September 18: Potassium supplement IV given. Hemoglobin stable. Patient remains full code. Continue per consultants. Previously: Potassium supplement IV Slow IV hydration Epogen subcu Adjust blood pressure medication IV fluid, rate adjusted Norman catheter, intake and output Monitor renal parameters Avoid nephrotoxic's Antibiotics Per orders 2D echocardiogram Kidney ultrasound Subjective ROS Limited/Unobtainable: Yes Objective Objective Last 24 Hour Vital Signs Date Time Temp Pulse Resp B/P (MAP) Pulse Ox O2 Delivery O2 Flow Rate FiO2 10/20/19 09:24 97.9 10/20/19 08:55 53 154/55 10/20/19 08:55 154/55 10/20/19 08:48 56 29 40 10/20/19 08:00 97.9 53 20 154/55 (88) 98 10/20/19 08:00 40 10/20/19 08:00 56 10/20/19 08:00 Mechanical Ventilator Mechanical Ventilator Mechanical Ventilator 10/20/19 07:00 51 15 40 10/20/19 07:00 96 10/20/19 05:52 138/55 10/20/19 05:47 56 138/55 10/20/19 05:16 51 20 40 10/20/19 04:00 56 10/20/19 04:00 40 10/20/19 04:00 98.7 51 20 138/55 (82) 100 10/20/19 04:00 Mechanical Ventilator Mechanical Ventilator Mechanical Ventilator 10/20/19 03:42 58 20 40 10/20/19 01:49 52 20 40 10/20/19 00:00 56 10/20/19 00:00 40 10/20/19 00:00 Mechanical Ventilator Mechanical Ventilator Mechanical Ventilator 10/20/19 00:00 98.6 52 20 112/57 (75) 100 10/19/19 23:43 56 20 40 10/19/19 21:57 55 20 40 10/19/19 21:43 133/54 10/19/19 21:19 55 133/54 10/19/19 20:28 55 133/54 10/19/19 20:00 54 10/19/19 20:00 Mechanical Ventilator Mechanical Ventilator Mechanical Ventilator 10/19/19 20:00 40 10/19/19 20:00 98.6 56 20 133/54 (80) 100 10/19/19 19:36 54 20 40 10/19/19 17:23 142/59 10/19/19 16:53 51 20 40 10/19/19 16:00 98.2 56 20 142/59 (86) 95 10/19/19 16:00 Mechanical Ventilator Mechanical Ventilator Mechanical Ventilator 10/19/19 16:00 61 10/19/19 16:00 40 10/19/19 14:53 97.8 10/19/19 14:45 59 22 40 10/19/19 13:51 97.8 10/19/19 13:16 60 147/62 10/19/19 13:16 147/62 10/19/19 12:00 40 10/19/19 12:00 98.1 55 20 147/62 (90) 96 10/19/19 12:00 58 10/19/19 12:00 Mechanical Ventilator Mechanical Ventilator Mechanical Ventilator Intake and Output 10/19/19 10/20/19 19:00 07:00 Intake Total 815 ml 640 ml Output Total 350 ml 350 ml Balance 465 ml 290 ml Intake Free Water 200 ml IV Total 55 ml Tube Feeding 520 ml 440 ml Other 240 ml Output Urine Total 350 ml 350 ml # Bowel Movements 1 Laboratory Tests 10/20/19 04:50: White Blood Count 9.4, Red Blood Count 3.53L, Hemoglobin 10.8L, Hematocrit 32.7L , Mean Corpuscular Volume 93, Mean Corpuscular Hemoglobin 30.6, Mean Corpuscular Hemoglobin Concent 33.1, Red Cell Distribution Width 14.9H, Platelet Count 400, Mean Platelet Volume 4.9L, Neutrophils (%) (Auto) 75.1H, Lymphocytes (%) (Auto) 16.9L, Monocytes (%) (Auto) 5.9, Eosinophils (%) (Auto) 1.6, Basophils (%) (Auto) 0.5, Sodium Level 135L, Potassium Level 3.5, Chloride Level 98, Carbon Dioxide Level 28, Anion Gap 9, Blood Urea Nitrogen 65H, Creatinine 2.3H, Estimat Glomerular Filtration Rate 22.7, Glucose Level 123H, Calcium Level 8.7, Phosphorus Level 4.4, Magnesium Level 3.0H, Total Bilirubin 0.3, Aspartate Amino Transf (AST/SGOT) 26, Alanine Aminotransferase (ALT/SGPT) 14, Alkaline Phosphatase 184H, Total Protein 6.7, Albumin 1.7L, Globulin 5.0, Albumin/Globulin Ratio 0.3L Height (Feet): 5 Height (Inches): 5.00 Weight (Pounds): 144 General Appearance: no apparent distress EENT: other - Trach and vent Cardiovascular: bradycardia Respiratory/Chest: decreased breath sounds Abdomen: soft Objective No change Johnny Houston MD Oct 20, 2019 11:30
[2019-10-20 12:00] VITALS: BP 141/55
[2019-10-20] MEDS ORDERED: Tubing IV Secondary IV ONE (14:45)
[2019-10-20] MEDS ORDERED: NS 275ml ONE (14:45)
[2019-10-20 16:00] VITALS: BP 154/56
[2019-10-20 20:00] VITALS: BP 151/60
--- NOTE | 2019-10-20 20:00 | General Progress Note ---
Assessment/Plan Status: stable, other - Mood has improved he is able to smile there is no continuous tearing overall she looks better today energy looking the last several days continue with the same management Status Narrative Patient was able to tolerate 8 hours of BiPAP today Patient seen again tearful because she is not discharged and requested an injection of Haldol or have the TV opened Patient is scheduled to undergo hemodialysis. Treatment required hemodialysis basis she would not be able to be done to the subacute where she came from diversion. Patient dialysis If this can be done patient could be discharged soon LUCAS DONG MD Subjective Constitutional: Reports: no symptoms, other - Awake alert febrile communicate without difficulties HEENT: Reports: no symptoms Cardiovascular: Reports: no symptoms, other - No chest pain shortness of breath palpitation or dizziness Respiratory: Reports: no symptoms, other - No cough wheezing or expectoration Gastrointestinal/Abdominal: Reports: no symptoms Genitourinary: Reports: no symptoms Neurologic/Psychiatric: Reports: anxiety, depressed, other - Persistently asked when she would be discharged Hematologic/Lymphatic: Reports: no symptoms Allergies: Coded Allergies: No Known Allergies (Unverified , 10/10/17) Objective Last 24 Hour Vital Signs Date Time Temp Pulse Resp B/P (MAP) Pulse Ox O2 Delivery O2 Flow Rate FiO2 10/20/19 19:11 60 22 40 10/20/19 17:29 154/65 10/20/19 17:12 97.9 10/20/19 17:00 56 21 40 10/20/19 16:00 96.6 62 21 154/56 (88) 99 10/20/19 16:00 Mechanical Ventilator Mechanical Ventilator Mechanical Ventilator 10/20/19 16:00 40 10/20/19 16:00 55 10/20/19 15:30 58 22 40 10/20/19 14:14 141/55 10/20/19 14:00 57 141/55 10/20/19 13:02 57 26 40 10/20/19 12:00 Mechanical Ventilator Mechanical Ventilator Mechanical Ventilator 10/20/19 12:00 40 10/20/19 12:00 57 10/20/19 12:00 97.9 54 21 141/55 (83) 98 10/20/19 11:16 54 29 40 10/20/19 08:55 53 154/55 10/20/19 08:55 154/55 10/20/19 08:48 56 29 40 10/20/19 08:00 97.9 53 20 154/55 (88) 98 10/20/19 08:00 40 10/20/19 08:00 56 10/20/19 08:00 Mechanical Ventilator Mechanical Ventilator Mechanical Ventilator 10/20/19 07:00 51 15 40 10/20/19 07:00 96 10/20/19 05:52 138/55 10/20/19 05:47 56 138/55 10/20/19 05:16 51 20 40 10/20/19 04:00 56 10/20/19 04:00 40 10/20/19 04:00 98.7 51 20 138/55 (82) 100 10/20/19 04:00 Mechanical Ventilator Mechanical Ventilator Mechanical Ventilator 10/20/19 03:42 58 20 40 10/20/19 01:49 52 20 40 10/20/19 00:00 56 10/20/19 00:00 40 10/20/19 00:00 Mechanical Ventilator Mechanical Ventilator Mechanical Ventilator 10/20/19 00:00 98.6 52 20 112/57 (75) 100 10/19/19 23:43 56 20 40 10/19/19 21:57 55 20 40 10/19/19 21:43 133/54 10/19/19 21:19 55 133/54 10/19/19 20:28 55 133/54 10/19/19 20:00 54 10/19/19 20:00 Mechanical Ventilator Mechanical Ventilator Mechanical Ventilator 10/19/19 20:00 40 10/19/19 20:00 98.6 56 20 133/54 (80) 100 Intake and Output 10/19/19 10/20/19 19:00 07:00 Intake Total 815 ml 680 ml Output Total 350 ml 350 ml Balance 465 ml 330 ml Intake Free Water 200 ml IV Total 55 ml Tube Feeding 520 ml 480 ml Other 240 ml Output Urine Total 350 ml 350 ml # Bowel Movements 1 Laboratory Tests 10/20/19 04:50: White Blood Count 9.4, Red Blood Count 3.53L, Hemoglobin 10.8L, Hematocrit 32.7L , Mean Corpuscular Volume 93, Mean Corpuscular Hemoglobin 30.6, Mean Corpuscular Hemoglobin Concent 33.1, Red Cell Distribution Width 14.9H, Platelet Count 400, Mean Platelet Volume 4.9L, Neutrophils (%) (Auto) 75.1H, Lymphocytes (%) (Auto) 16.9L, Monocytes (%) (Auto) 5.9, Eosinophils (%) (Auto) 1.6, Basophils (%) (Auto) 0.5, Sodium Level 135L, Potassium Level 3.5, Chloride Level 98, Carbon Dioxide Level 28, Anion Gap 9, Blood Urea Nitrogen 65H, Creatinine 2.3H, Estimat Glomerular Filtration Rate 22.7, Glucose Level 123H, Calcium Level 8.7, Phosphorus Level 4.4, Magnesium Level 3.0H, Total Bilirubin 0.3, Aspartate Amino Transf (AST/SGOT) 26, Alanine Aminotransferase (ALT/SGPT) 14, Alkaline Phosphatase 184H, Total Protein 6.7, Albumin 1.7L, Globulin 5.0, Albumin/Globulin Ratio 0.3L Height (Feet): 5 Height (Inches): 5.00 Weight (Pounds): 144 General Appearance: no apparent distress, alert EENT: normal ENT inspection Neck: supple Respiratory/Chest: lungs clear, normal breath sounds, no respiratory distress Abdomen: normal bowel sounds, non tender, soft, no organomegaly, no mass Extremities: non-tender Neurologic: alert, oriented x 3, responsive Lucas Dong MD Oct 20, 2019 20:00
[2019-10-20] MEDS: Dyna-Hex 2% Top Sol 2oz TOPIC SCH (20:17)
[2019-10-20] MEDS: Miralax 17gm pkt ORAL SCH (20:20)
[2019-10-21] VITALS: BP 135/57
[2019-10-21] MEDS: Metoclopramide 10mg/10ml Liq GT SCH ×5 (00:05→23:42)
[2019-10-21] MEDS: Meropenem 500 MG in NS 55 ML IVPB SCH ×2 (00:05→11:45)
[2019-10-21 04:00] VITALS: BP 145/66
[2019-10-21] MEDS: Docusate 100mg/10ml Liq GT SCH ×3 (05:33→21:43)
[2019-10-21] MEDS: dilTIAZem HCl 90mg tab GT SCH ×3 (05:33→21:52)
[2019-10-21] MEDS: Minoxidil 2.5mg tab ORAL SCH ×3 (05:34→21:52)
[2019-10-21] MEDS: NovoLOG Insulin Flexpen SUBQ SCH ×5 (05:34→23:42)
[2019-10-21 05:46] LABS: BASOPHILS % (AUTO) 0.7 % (0.0-2.0); EOSINOPHILS % (AUTO) 3.4 % (0.0-3.0); HEMOGLOBIN 10.5 G/DL (12.0-16.0); LYMPHOCYTES % (AUTO) 20.1 % (20.0-45.0); MEAN CORPUSCULAR VOLUME 93 FL (80-99); MONOCYTES % (AUTO) 4.6 % (1.0-10.0); NEUTROPHILS % (AUTO) 71.2 % (45.0-75.0); PLATELET COUNT 394 K/UL (150-450); RED BLOOD COUNT 3.45 M/UL (4.20-5.40); RED CELL DISTRIBUTION WIDTH 14.9 % (11.6-14.8)
[2019-10-21 06:20] LABS: ALANINE AMINOTRANSFERASE 11 U/L (12-78); ALBUMIN 1.8 G/DL (3.4-5.0); ALBUMIN/GLOBULIN RATIO 0.4 (1.0-2.7); ALKALINE PHOSPHATASE 177 U/L (46-116); ANION GAP 9 mmol/L (5-15); ASPARTATE AMINO TRANSFERASE 26 U/L (15-37); BILIRUBIN,TOTAL 0.3 MG/DL (0.2-1.0); BLOOD UREA NITROGEN 68 mg/dL (7-18); CALCIUM 9.1 MG/DL (8.5-10.1); CARBON DIOXIDE 28 MMOL/L (21-32); CHLORIDE 97 MMOL/L (98-107); CREATININE 2.4 MG/DL (0.55-1.30); PHOSPHORUS 3.7 MG/DL (2.5-4.9); POTASSIUM 3.1 MMOL/L (3.5-5.1); SODIUM 134 MMOL/L (136-145)
[2019-10-21 08:00] VITALS: BP 137/61
--- NOTE | 2019-10-21 08:15 | Hematology/Onc Progress Note ---
Assessment/Plan Assessment/Plan Assessment and Recs # Leukocytosis, now with gram positive bacteremias well as pna noted --> historically --> PPM site (pocket) infection (redness and pain, bacteremia) and likely pocket abscess - no vegetation seen on ABBIE --> is s'p pm removal and also pocket infection is better --> per cards recs in re to tach/davis --> wbc 15-->19-->17-->15-->13->12-->13-->12>13-->18-->9-->7-->16-->17->9.4 --> ABX cefepime/levaquin--> vanc/angelo-> daptomycin-->Angelo --> ID recs are noted # Anemia of chronic disease due to underlying chronic medical issues, multifactorial --> Anemia workup has been reviewed, cw acd --> No evidence of hemolysis is noted, peripheral smear has been reviewed. --> Hgb goal >7. Transfuse prn. --> Epogen started --> Medications have been reviewed --> low threshold for gi evaluation in case has occult + --> hgb 7.1-->7.8-->8.9->9.2-->8.5-->9.7-->10-->8.8-->9.6-->8.7->8.6-->7.2->8.7- >9.1-->9.2-->9-->8.7-->9.3-->9.8-->10->10.3-->10.8->10.5 --> 1 unit prbc 09/27 # Thrombocytois is likely reactive process, is s/p infection --> plt trend 610k-->706k-->354 --> p smear reviewed # Acute hypoxic respiratory failure s/p intubation 11/23- ?ARDS --> on vent/trach # Gram positive bacteremia- real bacteremia- 2ry to above and probable PNA --> per id care # JAVIER initially >2 --> on ivfs # Elevated d-dimer --> venous duplex and v/q scan --> negative results # Dysphagia s/p peg # Thoracic aortic dissection s/p repair early 2017 # Psychiatric history on ativan/haldol # [place] resident # Dvt ppx --> heparin sq The timing of this note does not necessarily reflect the time of the patient was seen. Greatly appreciate consultation. Subjective Constitutional: Denies: no symptoms, chills, fever, malaise, weakness, other HEENT: Denies: no symptoms, eye pain, blurred vision, tearing, double vision, ear pain, ear discharge, nose pain, nose congestion, throat pain, throat swelling, mouth pain, mouth swelling, other Cardiovascular: Denies: no symptoms, chest pain, edema, irregular heart rate, lightheadedness, palpitations, syncope, other Respiratory: Denies: no symptoms, cough, shortness of breath, SOB with excertion, SOB at rest, sputum, wheezing, other Gastrointestinal/Abdominal: Denies: no symptoms, abdomen distended, abdominal pain, black stools, tarry stools, blood in stool, constipated, diarrhea, difficulty swallowing, nausea, poor appetite, poor fluid intake, rectal bleeding , vomiting, other Genitourinary: Denies: no symptoms, burning, discharge, frequency, flank pain, hematuria, incontinence, pain, urgency, other Neurologic/Psychiatric: Denies: no symptoms, anxiety, depressed, emotional problems, headache, numbness, paresthesia, pre-existing deficit, seizure, tingling, tremors, weakness, other Endocrine: Denies: no symptoms, excessive sweating, flushing, intolerance to cold, intolerance to heat, increased hunger, increased thirst, increased urine, unexplained weight gain, unexplained weight loss, other Hematologic/Lymphatic: Denies: no symptoms, anemia, easy bleeding, easy bruising, adenopathy, other Allergies: Coded Allergies: No Known Allergies (Unverified , 10/10/17) Subjective 09/16 on vent now, consulted in am pulm, on vent setting, labs noted, hep sq 09/17 meds noted, cbc noted, labs noted, no bleeding 09/18 is to undergo potential v/q scan given abg, labs noted, resless, on ativan, to get haldol today, roman rn 09/19 remains agitated, covering, with sacral wound seeping, likely cause of anemia, roman rn 09/26 restless, remains agitated, gtube ripped, eval with rn, and vosolizi consulted 09/27 remains on vent, agitated, seen by gi, hgb low, roman George to transfuse 1 unit prbc 09/28 meds noted, no bleeding, on vent, s/p blood tranfusion, cbc pending, roman rn 09/29 remains in the icu, roman rn in the am, agitated, on versed, fentanyl, restraints 09/30 in icu, trach to vent, on gtube feeds, fentanyl, agitated 10/01 in icu, roman Ayoub rn, no bleeding, sleeping, labs noted, hgb >9 10/02 sedated in icu, is on vent, roman rn, more alert and more conversive with face grimaces 10/03 labs have been reviewed, no bleeding, icu, meds reviewed, on fentanyl and versed, to consult psych 10/05 remains on fentanyl, also with restraints, no bleeding, cbc ordered 10/06 remains obtunded, though reactive when proded, labs pending from am 10/07 hypertensive, asleep, no bleeding, roman rn, no major night sweats\ 10/08 formula leaking from gtube site, no bleeding, with some minor residual 10/09 remains on gtube feeds, on lactulose, no major changes, confused but nods 10/10 labs reviewed, lactulose discontinued as having diarrhea, no bleeding 10/12 meds reviewed, no bleeding, heparin given, roman Starr rn in am, comfortable 10/13 labs are noted, no bleeding, cbc is ordered for today, somewhat agitated 10/14 has been complaining of pain and frowning, no bleeding, hgb reviewed 10/15 hgb 10.4, no bleeding, stool is hard, difficult to collect for c.diff 10/16 restless, agitated overnight, getting haldol prn, roman rn at bedside 10/17 labs are noted, no bleeding, meds reviewed, wbc 17k, on abx 10/19 labs are noted, no bleeding, meds noted, no major changes, with v/t, peg 10/20 on vent, with gtube and raymond, no bleeding, labs are noted Objective Objective Current Medications Medications (Trade) Dose Ordered Sig/Penny Route PRN Reason Start Time Stop Time Status Last Admin Dose Admin Acetaminophen (Tylenol) 325 mg Q4H PRN GT Mild Pain (Pain Scale 1-3) 10/17/19 18:45 11/16/19 18:44 10/20/19 16:42 Acetaminophen (Tylenol) 325 mg Q6H PRN GT Temp >100.5 10/11/19 04:45 10/23/19 10:44 10/19/19 13:21 Ascorbic Acid (Vitamin C) 500 mg DAILY ORAL 10/11/19 09:00 11/05/19 08:59 10/20/19 08:54 Chlorhexidine Gluconate (Ling-Hex 2%) 1 applic DAILY@2000 TOPIC 10/11/19 20:00 12/22/19 19:59 10/20/19 20:17 Clonidine HCl (Catapres TTS-3) 1 patch QWEEK TDERMAL 10/14/19 12:00 01/12/20 11:59 10/14/19 11:51 Dextrose (Dextrose 50%) 25 ml Q30M PRN IV Hypoglycemia 10/11/19 04:30 01/03/20 18:29 Dextrose (Dextrose 50%) 50 ml Q30M PRN IV Hypoglycemia 10/11/19 04:30 01/03/20 18:29 Diltiazem HCl (Cardizem Tab) 90 mg Q8HR GT 10/16/19 14:00 11/09/19 11:59 10/19/19 13:16 Docusate Sodium (Colace) 100 mg Q8HR GT 10/14/19 14:01 11/13/19 14:00 10/21/19 05:33 Epoetin Gelacio (Epoetin Gelacio(ESRD on dialysis)) 10,000 unit MON-MON-MON SUBQ 10/14/19 21:00 01/12/20 20:59 10/18/19 21:09 Haloperidol Lactate (Haldol) 5 mg Q6H PRN IM Agitation 10/11/19 05:00 11/22/19 10:59 10/20/19 00:06 Heparin Sodium (Porcine) (Heparin 5000 units/ml) 5,000 units EVERY 12 HOURS SUBQ 10/11/19 09:00 10/30/19 08:59 10/20/19 20:19 Insulin Aspart (NovoLOG) Q6HR SUBQ 10/11/19 06:00 01/03/20 20:59 Lansoprazole (Prevacid) 30 mg Q12HR GT 10/11/19 09:00 10/27/19 20:59 10/20/19 20:18 Lisinopril (PriniviL) 20 mg BID GT 10/11/19 09:00 11/08/19 17:59 10/20/19 17:29 Meropenem 500 mg/ Sodium Chloride 55 ml @ 110 mls/hr Q12H IVPB 10/20/19 01:00 10/25/19 00:59 10/21/19 00:05 Metoclopramide HCl (Reglan) 5 mg EVERY 6 HOURS GT 10/11/19 06:00 11/08/19 11:59 10/21/19 05:33 Metoprolol Tartrate (Lopressor) 25 mg Q12HR GT 10/11/19 09:00 01/07/20 20:59 10/20/19 20:18 Minoxidil (Loniten) 2.5 mg Q8HR ORAL 10/11/19 06:00 01/08/20 13:59 10/21/19 05:34 Morphine Sulfate (Morphine Sulfate) 2 mg Q6H PRN IVP For Pain 10/16/19 09:45 10/23/19 09:44 10/19/19 14:23 Polyethylene Glycol (Miralax) 17 gm BEDTIME ORAL 10/11/19 21:00 10/31/19 20:59 10/19/19 20:28 Risperidone (RisperDAL) 2 mg BEDTIME ORAL 10/11/19 21:00 11/19/19 20:59 10/20/19 20:20 Sorbitol (sorbitoL) 30 ml EVERY 6 HOURS PRN GT Constipation 10/11/19 06:00 10/29/19 17:59 Vitamin B Complex/ Vit C/Folic Acid (Nephrovite) 1 tab DAILY ORAL 10/11/19 09:00 11/05/19 08:59 10/20/19 08:54 Zinc Sulfate (Zinc Sulfate) 220 mg DAILY ORAL 10/11/19 09:00 10/21/19 08:59 10/20/19 08:54 Last 24 Hour Vital Signs Date Time Temp Pulse Resp B/P (MAP) Pulse Ox O2 Delivery O2 Flow Rate FiO2 10/21/19 08:00 98.2 59 21 137/61 (86) 97 10/21/19 05:34 153/62 10/21/19 05:33 57 153/62 10/21/19 05:15 54 20 40 10/21/19 04:00 Mechanical Ventilator Mechanical Ventilator Mechanical Ventilator 10/21/19 04:00 40 10/21/19 04:00 97.9 56 21 145/66 (92) 99 10/21/19 03:39 55 10/21/19 03:05 55 20 40 10/21/19 01:15 55 20 40 10/21/19 00:00 98.1 57 21 135/57 (83) 99 10/21/19 00:00 Mechanical Ventilator Mechanical Ventilator Mechanical Ventilator 10/20/19 23:55 59 10/20/19 23:05 56 20 40 10/20/19 21:20 55 151/63 10/20/19 21:19 151/63 10/20/19 20:50 57 21 40 10/20/19 20:18 61 151/60 10/20/19 20:00 98.1 61 21 151/60 (90) 99 10/20/19 20:00 Mechanical Ventilator Mechanical Ventilator Mechanical Ventilator 10/20/19 20:00 40 10/20/19 19:11 60 22 40 10/20/19 19:05 57 10/20/19 17:29 154/65 10/20/19 17:12 97.9 10/20/19 17:00 56 21 40 10/20/19 16:00 96.6 62 21 154/56 (88) 99 10/20/19 16:00 Mechanical Ventilator Mechanical Ventilator Mechanical Ventilator 10/20/19 16:00 40 10/20/19 16:00 55 10/20/19 15:30 58 22 40 10/20/19 14:14 141/55 10/20/19 14:00 57 141/55 10/20/19 13:02 57 26 40 10/20/19 12:00 Mechanical Ventilator Mechanical Ventilator Mechanical Ventilator 10/20/19 12:00 40 10/20/19 12:00 57 10/20/19 12:00 97.9 54 21 141/55 (83) 98 10/20/19 11:16 54 29 40 10/20/19 08:55 53 154/55 10/20/19 08:55 154/55 10/20/19 08:48 56 29 40 10/20/19 08:00 97.9 53 20 154/55 (88) 98 10/20/19 08:00 40 10/20/19 08:00 56 10/20/19 08:00 Mechanical Ventilator Mechanical Ventilator Mechanical Ventilator 10/20/19 07:00 51 15 40 10/20/19 07:00 96 10/20/19 05:52 138/55 10/20/19 05:47 56 138/55 10/20/19 05:16 51 20 40 10/20/19 04:00 56 10/20/19 04:00 40 10/20/19 04:00 98.7 51 20 138/55 (82) 100 10/20/19 04:00 Mechanical Ventilator Mechanical Ventilator Mechanical Ventilator 10/20/19 03:42 58 20 40 10/20/19 01:49 52 20 40 10/20/19 00:00 56 10/20/19 00:00 40 10/20/19 00:00 Mechanical Ventilator Mechanical Ventilator Mechanical Ventilator 10/20/19 00:00 98.6 52 20 112/57 (75) 100 10/19/19 23:43 56 20 40 10/19/19 21:57 55 20 40 10/19/19 21:43 133/54 10/19/19 21:19 55 133/54 10/19/19 20:28 55 133/54 10/19/19 20:00 54 10/19/19 20:00 Mechanical Ventilator Mechanical Ventilator Mechanical Ventilator 10/19/19 20:00 40 10/19/19 20:00 98.6 56 20 133/54 (80) 100 10/19/19 19:36 54 20 40 10/19/19 17:23 142/59 10/19/19 16:53 51 20 40 10/19/19 16:00 98.2 56 20 142/59 (86) 95 10/19/19 16:00 Mechanical Ventilator Mechanical Ventilator Mechanical Ventilator 10/19/19 16:00 61 10/19/19 16:00 40 10/19/19 14:53 97.8 10/19/19 14:45 59 22 40 10/19/19 13:51 97.8 10/19/19 13:16 60 147/62 10/19/19 13:16 147/62 10/19/19 12:00 40 10/19/19 12:00 98.1 55 20 147/62 (90) 96 10/19/19 12:00 58 10/19/19 12:00 Mechanical Ventilator Mechanical Ventilator Mechanical Ventilator 10/19/19 10:38 62 29 40 10/19/19 08:48 61 32 40 10/19/19 08:22 58 142/65 10/19/19 08:21 142/65 Intake and Output 10/20/19 10/21/19 19:00 07:00 Intake Total 695 ml 735 ml Output Total 500 ml 500 ml Balance 195 ml 235 ml Intake Free Water 200 ml 200 ml IV Total 55 ml 55 ml Tube Feeding 440 ml 480 ml Output Urine Total 500 ml 500 ml # Bowel Movements 1 1 Labs Test 10/19/19 03:15 10/20/19 04:50 10/21/19 03:48 White Blood Count 11.7 K/UL (4.8-10.8) 9.4 K/UL (4.8-10.8) 9.0 K/UL (4.8-10.8) Red Blood Count 3.30 M/UL (4.20-5.40) 3.53 M/UL (4.20-5.40) 3.45 M/UL (4.20-5.40) Hemoglobin 10.0 G/DL (12.0-16.0) 10.8 G/DL (12.0-16.0) 10.5 G/DL (12.0-16.0) Hematocrit 30.6 % (37.0-47.0) 32.7 % (37.0-47.0) 32.0 % (37.0-47.0) Mean Corpuscular Volume 93 FL (80-99) 93 FL (80-99) 93 FL (80-99) Mean Corpuscular Hemoglobin 30.3 PG (27.0-31.0) 30.6 PG (27.0-31.0) 30.3 PG (27.0-31.0) Mean Corpuscular Hemoglobin Concent 32.6 G/DL (32.0-36.0) 33.1 G/DL (32.0-36.0) 32.7 G/DL (32.0-36.0) Red Cell Distribution Width 14.9 % (11.6-14.8) 14.9 % (11.6-14.8) 14.9 % (11.6-14.8) Platelet Count 334 K/UL (150-450) 400 K/UL (150-450) 394 K/UL (150-450) Mean Platelet Volume 5.1 FL (6.5-10.1) 4.9 FL (6.5-10.1) 4.9 FL (6.5-10.1) Neutrophils (%) (Auto) 72.2 % (45.0-75.0) 75.1 % (45.0-75.0) 71.2 % (45.0-75.0) Lymphocytes (%) (Auto) 16.3 % (20.0-45.0) 16.9 % (20.0-45.0) 20.1 % (20.0-45.0) Monocytes (%) (Auto) 7.0 % (1.0-10.0) 5.9 % (1.0-10.0) 4.6 % (1.0-10.0) Eosinophils (%) (Auto) 3.7 % (0.0-3.0) 1.6 % (0.0-3.0) 3.4 % (0.0-3.0) Basophils (%) (Auto) 0.9 % (0.0-2.0) 0.5 % (0.0-2.0) 0.7 % (0.0-2.0) Sodium Level 134 MMOL/L (136-145) 135 MMOL/L (136-145) 134 MMOL/L (136-145) Potassium Level 3.5 MMOL/L (3.5-5.1) 3.5 MMOL/L (3.5-5.1) 3.1 MMOL/L (3.5-5.1) Chloride Level 97 MMOL/L (98-107) 98 MMOL/L (98-107) 97 MMOL/L (98-107) Carbon Dioxide Level 29 MMOL/L (21-32) 28 MMOL/L (21-32) 28 MMOL/L (21-32) Anion Gap 8 mmol/L (5-15) 9 mmol/L (5-15) 9 mmol/L (5-15) Blood Urea Nitrogen 62 mg/dL (7-18) 65 mg/dL (7-18) 68 mg/dL (7-18) Creatinine 2.3 MG/DL (0.55-1.30) 2.3 MG/DL (0.55-1.30) 2.4 MG/DL (0.55-1.30) Estimat Glomerular Filtration Rate 22.7 mL/min (>60) 22.7 mL/min (>60) 21.7 mL/min (>60) Glucose Level 99 MG/DL (74-106) 123 MG/DL (74-106) 114 MG/DL (74-106) Calcium Level 8.5 MG/DL (8.5-10.1) 8.7 MG/DL (8.5-10.1) 9.1 MG/DL (8.5-10.1) Phosphorus Level 4.7 MG/DL (2.5-4.9) 4.4 MG/DL (2.5-4.9) 3.7 MG/DL (2.5-4.9) Magnesium Level 2.9 MG/DL (1.8-2.4) 3.0 MG/DL (1.8-2.4) 3.0 MG/DL (1.8-2.4) Total Bilirubin 0.3 MG/DL (0.2-1.0) 0.3 MG/DL (0.2-1.0) 0.3 MG/DL (0.2-1.0) Aspartate Amino Transf (AST/SGOT) 24 U/L (15-37) 26 U/L (15-37) 26 U/L (15-37) Alanine Aminotransferase (ALT/SGPT) 9 U/L (12-78) 14 U/L (12-78) 11 U/L (12-78) Alkaline Phosphatase 156 U/L (46-116) 184 U/L (46-116) 177 U/L (46-116) Total Protein 6.3 G/DL (6.4-8.2) 6.7 G/DL (6.4-8.2) 6.8 G/DL (6.4-8.2) Albumin 1.7 G/DL (3.4-5.0) 1.7 G/DL (3.4-5.0) 1.8 G/DL (3.4-5.0) Globulin 4.6 g/dL 5.0 g/dL 5.0 g/dL Albumin/Globulin Ratio 0.4 (1.0-2.7) 0.3 (1.0-2.7) 0.4 (1.0-2.7) Height (Feet): 5 Height (Inches): 5.00 Weight (Pounds): 144 Objective Physical Exam: Vitals: reviewed General: NAD HEENT: nc, at Neck: supple ++tracn/vent Chest: clear breath sounds bilaterally Cardiovascular: RRR, no s3, s4 Abdomen: soft, nontender, nd +gtube Extremities: no cce, normal range of motion Neuro: alert Evan Muhammad MD Oct 21, 2019 08:15
[2019-10-21] MEDS: Ascorbic Acid 500mg tab ORAL SCH (09:00)
[2019-10-21] MEDS: Nephrovite tab (Rena-Vite) ORAL SCH (09:00)
[2019-10-21] MEDS: Lisinopril 20mg tab GT SCH ×2 (09:01→17:14)
[2019-10-21] MEDS: Heparin 5000 units/ml inj SUBQ SCH ×2 (09:02→20:26)
--- NOTE | 2019-10-21 09:25 | Pulmonology Progress Note ---
Yara Castro [employer] 10/21/19 0925: Subjective ROS Limited/Unobtainable: Yes Allergies: Coded Allergies: No Known Allergies (Unverified , 10/10/17) Subjective in [facility] now on CPAP trials with PS 8 , for the last two days tolerated 8 hrs no signs of resp distress denies CP, SOB afebrile, leukocytosis resolved Objective Last 24 Hour Vital Signs Date Time Temp Pulse Resp B/P (MAP) Pulse Ox O2 Delivery O2 Flow Rate FiO2 10/21/19 09:01 137/61 10/21/19 09:00 58 137/61 10/21/19 08:00 98.2 59 21 137/61 (86) 97 10/21/19 07:00 56 22 40 10/21/19 05:34 153/62 10/21/19 05:33 57 153/62 10/21/19 05:15 54 20 40 10/21/19 04:00 Mechanical Ventilator Mechanical Ventilator Mechanical Ventilator 10/21/19 04:00 40 10/21/19 04:00 97.9 56 21 145/66 (92) 99 10/21/19 03:39 55 10/21/19 03:05 55 20 40 10/21/19 01:15 55 20 40 10/21/19 00:00 98.1 57 21 135/57 (83) 99 10/21/19 00:00 Mechanical Ventilator Mechanical Ventilator Mechanical Ventilator 10/20/19 23:55 59 10/20/19 23:05 56 20 40 10/20/19 21:20 55 151/63 10/20/19 21:19 151/63 10/20/19 20:50 57 21 40 10/20/19 20:18 61 151/60 10/20/19 20:00 98.1 61 21 151/60 (90) 99 10/20/19 20:00 Mechanical Ventilator Mechanical Ventilator Mechanical Ventilator 10/20/19 20:00 40 10/20/19 19:11 60 22 40 10/20/19 19:05 57 10/20/19 17:29 154/65 10/20/19 17:12 97.9 10/20/19 17:00 56 21 40 10/20/19 16:00 96.6 62 21 154/56 (88) 99 10/20/19 16:00 Mechanical Ventilator Mechanical Ventilator Mechanical Ventilator 10/20/19 16:00 40 10/20/19 16:00 55 10/20/19 15:30 58 22 40 10/20/19 14:14 141/55 10/20/19 14:00 57 141/55 10/20/19 13:02 57 26 40 10/20/19 12:00 Mechanical Ventilator Mechanical Ventilator Mechanical Ventilator 10/20/19 12:00 40 10/20/19 12:00 57 10/20/19 12:00 97.9 54 21 141/55 (83) 98 10/20/19 11:16 54 29 40 Intake and Output 10/20/19 10/21/19 19:00 07:00 Intake Total 695 ml 735 ml Output Total 500 ml 500 ml Balance 195 ml 235 ml Intake Free Water 200 ml 200 ml IV Total 55 ml 55 ml Tube Feeding 440 ml 480 ml Output Urine Total 500 ml 500 ml # Bowel Movements 1 1 Objective General Appearance: no apparent distress, bedridden middle age chronically ill looking female on vent AC 500-20- 40%, PEEP 5, awake, calm-currently on CPAP PS8 Lines, tubes and drains: left jugular HD catheter HEENT: normocephalic, atraumatic, anicteric, trach - Shiley #7 cuffed XLT, secretions small amount, yellow color , thick consistency Respiratory/Chest: no accessory muscle use, BS overall CTAB Cardiovascular/Chest: normal rate, regular rhythm - SR on tele Abdomen: normal bowel sounds, non tender, soft, G tube Genitourinary/Rectal: Norman Extremities: no edema Skin Exam: warm/dry, multiple tattoos all over the body Neurologic: awake, no gross focal Musculoskeletal: atrophy - BLE Laboratory Tests 10/21/19 03:48: White Blood Count 9.0, Red Blood Count 3.45L, Hemoglobin 10.5L, Hematocrit 32.0L , Mean Corpuscular Volume 93, Mean Corpuscular Hemoglobin 30.3, Mean Corpuscular Hemoglobin Concent 32.7, Red Cell Distribution Width 14.9H, Platelet Count 394, Mean Platelet Volume 4.9L, Neutrophils (%) (Auto) 71.2, Lymphocytes (%) (Auto) 20.1, Monocytes (%) (Auto) 4.6, Eosinophils (%) (Auto) 3.4H, Basophils (%) (Auto) 0.7, Sodium Level 134L, Potassium Level 3.1L, Chloride Level 97L, Carbon Dioxide Level 28, Anion Gap 9, Blood Urea Nitrogen 68H, Creatinine 2.4H, Estimat Glomerular Filtration Rate 21.7, Glucose Level 114H, Calcium Level 9.1, Phosphorus Level 3.7, Magnesium Level 3.0H, Total Bilirubin 0.3, Aspartate Amino Transf (AST/SGOT) 26, Alanine Aminotransferase ( ALT/SGPT) 11L, Alkaline Phosphatase 177H, Total Protein 6.8, Albumin 1.8L, Globulin 5.0, Albumin/Globulin Ratio 0.4L Current Medications Medications (Trade) Dose Ordered Sig/Penny Route PRN Reason Start Time Stop Time Status Last Admin Dose Admin Acetaminophen (Tylenol) 325 mg Q4H PRN GT Mild Pain (Pain Scale 1-3) 10/17/19 18:45 11/16/19 18:44 10/20/19 16:42 Acetaminophen (Tylenol) 325 mg Q6H PRN GT Temp >100.5 10/11/19 04:45 10/23/19 10:44 10/19/19 13:21 Ascorbic Acid (Vitamin C) 500 mg DAILY ORAL 10/11/19 09:00 11/05/19 08:59 10/21/19 09:00 Chlorhexidine Gluconate (Ling-Hex 2%) 1 applic DAILY@1999 TOPIC 10/11/19 20:00 12/22/19 19:59 10/20/19 20:17 Clonidine HCl (Catapres TTS-3) 1 patch QWEEK TDERMAL 10/14/19 12:00 01/12/20 11:59 10/14/19 11:51 Dextrose (Dextrose 50%) 25 ml Q30M PRN IV Hypoglycemia 10/11/19 04:30 01/03/20 18:29 Dextrose (Dextrose 50%) 50 ml Q30M PRN IV Hypoglycemia 10/11/19 04:30 01/03/20 18:29 Diltiazem HCl (Cardizem Tab) 90 mg Q8HR GT 10/16/19 14:00 11/09/19 11:59 10/19/19 13:16 Docusate Sodium (Colace) 100 mg Q8HR GT 10/14/19 14:01 11/13/19 14:00 10/21/19 05:33 Epoetin Gelacio (Epoetin Gelacio(ESRD on dialysis)) 10,000 unit MON-MON-MON SUBQ 10/14/19 21:00 01/12/20 20:59 10/18/19 21:09 Haloperidol Lactate (Haldol) 5 mg Q6H PRN IM Agitation 10/11/19 05:00 11/22/19 10:59 10/20/19 00:06 Heparin Sodium (Porcine) (Heparin 5000 units/ml) 5,000 units EVERY 12 HOURS SUBQ 10/11/19 09:00 10/30/19 08:59 10/21/19 09:02 Insulin Aspart (NovoLOG) Q6HR SUBQ 10/11/19 06:00 01/03/20 20:59 Lansoprazole (Prevacid) 30 mg Q12HR GT 10/11/19 09:00 10/27/19 20:59 10/21/19 09:00 Lisinopril (PriniviL) 20 mg BID GT 10/11/19 09:00 11/08/19 17:59 10/21/19 09:01 Meropenem 500 mg/ Sodium Chloride 55 ml @ 110 mls/hr Q12H IVPB 10/20/19 01:00 10/25/19 00:59 10/21/19 00:05 Metoclopramide HCl (Reglan) 5 mg EVERY 6 HOURS GT 10/11/19 06:00 11/08/19 11:59 10/21/19 05:33 Metoprolol Tartrate (Lopressor) 25 mg Q12HR GT 10/11/19 09:00 01/07/20 20:59 10/20/19 20:18 Minoxidil (Loniten) 2.5 mg Q8HR ORAL 10/11/19 06:00 01/08/20 13:59 10/21/19 05:34 Morphine Sulfate (Morphine Sulfate) 2 mg Q6H PRN IVP For Pain 10/16/19 09:45 10/23/19 09:44 10/19/19 14:23 Polyethylene Glycol (Miralax) 17 gm BEDTIME ORAL 10/11/19 21:00 10/31/19 20:59 10/19/19 20:28 Risperidone (RisperDAL) 2 mg BEDTIME ORAL 10/11/19 21:00 11/19/19 20:59 10/20/19 20:20 Sorbitol (sorbitoL) 30 ml EVERY 6 HOURS PRN GT Constipation 10/11/19 06:00 10/29/19 17:59 Vitamin B Complex/ Vit C/Folic Acid (Nephrovite) 1 tab DAILY ORAL 10/11/19 09:00 11/05/19 08:59 10/21/19 09:00 Assessment/Plan Assessment/Plan ASSESSMENT Acute on chronic hypoxemic respiratory failure ( trach dependent), now on vent Tracheostomy status, s/p change to cuffed trach Sepsis Pulmonary edema Pleural effusion -worsening left pl effusion s/p thoracentesis L pleural effusion 09/26 -900 ml Pneumonia with MDR Pseudomonas UTI CHF ? cardiorenal COPD Acute kidney injury and chronic kidney disease-requiring start of HD Hypertension Atrial fibrillation Moderate pulm HTN Moderate AR Dysphagia , feeding by G-tube Electrolyte abnormalities Anemia Toxic metabolic encephalopathy likely due to sepsis and ARF HTN PAF Fevers. leukocytosis -resolved PLAN OF CARE PAULIE on vent AC trach changed 8/4 pm from uncuffed to cuffed Shiley#[address] chest w/out contrast: - Bilateral pleural effusions, right greater than left, with bilateral lower lobe consolidation or volume loss. -Ground-glass densities in the upper lobes bilaterally. This is not specific. -Tracheostomy. -Increased superior mediastinal density. Stability of adenopathy cannot be excluded. -Atherosclerotic change. -Gastrostomy. -Ascites. -Left renal stent with left hydronephrosis and renal atrophy. VQ scan -> low probability for PE worsening resp status was due to need for HD, now after HD started, resp status improving, down to PEEP 5 and AC 20 trach care , pulmonary toilet Mucomyst was prior dc given lots of thin secretions, continue Duoneb prn rapid COVID 19 NGT x3 off Fentanyl gtt since 10/09 FiO2 down to 40% last ABG stable 10/09 CXR 10/14 -increased right pleural fluid and parenchymal disease, doubt PNA likely fluid tolerating CPAP trials with PS 8 FiO2 40% 10/18-for 8 hrs continue CPAP trials as tolerated may continue in subacute upon discharge s/p thoracentesis L pleural effusion 09/26 am -> 900 ml fluid analysis noted, unlikely empyema given small # of WBC fup with fluid cx ( apparently never sent despite orders) cytology -> NGT, no malignant cells aspiration precautions venous Duplex BLE -> NGT DVT prophylaxis pulm toilet, BP regimen optimized as per nephro monitor volumes was on gentle IVF-> dc s/p prior diuretic-Lasix require initiation of HD continue further HD as per nephro with close monitoring of volumes, renal parameters and lytes -per nephro recs abx as per ID- recently pancx 10/14 due to fever and leukocytosis 10/14 BCX NGTD UCX 10/14 + Providencia, MDR, SCX+ Proteus ESBL, Pseudomonas MDR CXR 10/12 stable leuk 10/17, started on meropenem 10/17 -> as per ID recs, CXR 10/17 bilateral pleural effusions demonstrated. Mild interstitial and airspace congestion unchanged. leuk resolved, no fevers ECHO with pEF , moderate pulm HTN and moderate AR BP management with current regimen of BB, Cardizem and Hydralazine, remains in SR monitor HH with goal to keep Hgb >7, heme on board on EPO supportive care pain management wound care bowel regimen stable for dc from pulm standpoint dc plan in progress Note; time of this note does not reflect the actual time patient was seen. [facility] was down case discussed and evaluated by supervising physician Juve Martinez MD 10/21/19 1904: Subjective Allergies: Coded Allergies: No Known Allergies (Unverified , 10/10/17) Assessment/Plan Assessment/Plan Patient seen and examined with [employer]. Agree with above A&P as it reflects our joint deliberations. Yara Castro NP Oct 21, 2019 09:25 Juve Martinez MD Oct 21, 2019 19:04
[2019-10-21] MEDS: Acetaminophen 650mg/20.3ml GT PRN (09:46)
--- NOTE | 2019-10-21 10:11 | General Progress Note ---
Assessment/Plan Problem List: (1) S/P aortic dissection repair ICD Codes: Z98.890 - Other specified postprocedural states SNOMED: 785021198, 997109233 (2) Sacral decubitus ulcer, stage IV ICD Codes: L89.154 - Pressure ulcer of sacral region, stage 4 SNOMED: 571873490, 005118816 (3) Anemia ICD Codes: D64.9 - Anemia, unspecified SNOMED: 175426464 (4) GT CLOGGED (5) Feeding by G-tube ICD Codes: Z93.1 - Gastrostomy status SNOMED: 435883032, 065749464 (6) Tracheostomy in place ICD Codes: Z93.0 - Tracheostomy status SNOMED: 930013997 (7) Pacemaker ICD Codes: Z95.0 - Presence of cardiac pacemaker SNOMED: 505699935 (8) Chronic respiratory failure ICD Codes: J96.10 - Chronic respiratory failure, unspecified whether with hypoxia or hypercapnia SNOMED: 23470491 Status: stable, other - Mood has improved he is able to smile there is no continuous tearing overall she looks better today energy looking the last several days continue with the same management Assessment/Plan: GTF min GT leak add reglan monitor for residuals repeat labs abx per ID respiratory care dc planning per primary team Subjective ROS Limited/Unobtainable: No Allergies: Coded Allergies: No Known Allergies (Unverified , 10/10/17) Objective Last 24 Hour Vital Signs Date Time Temp Pulse Resp B/P (MAP) Pulse Ox O2 Delivery O2 Flow Rate FiO2 10/21/19 09:01 137/61 10/21/19 09:00 58 137/61 10/21/19 08:00 Mechanical Ventilator Mechanical Ventilator Mechanical Ventilator 10/21/19 08:00 40 10/21/19 08:00 56 10/21/19 08:00 98.2 59 21 137/61 (86) 97 10/21/19 07:00 56 22 40 10/21/19 05:34 153/62 10/21/19 05:33 57 153/62 10/21/19 05:15 54 20 40 10/21/19 04:00 Mechanical Ventilator Mechanical Ventilator Mechanical Ventilator 10/21/19 04:00 40 10/21/19 04:00 97.9 56 21 145/66 (92) 99 10/21/19 03:39 55 10/21/19 03:05 55 20 40 10/21/19 01:15 55 20 40 10/21/19 00:00 98.1 57 21 135/57 (83) 99 10/21/19 00:00 Mechanical Ventilator Mechanical Ventilator Mechanical Ventilator 10/20/19 23:55 59 10/20/19 23:05 56 20 40 10/20/19 21:20 55 151/63 10/20/19 21:19 151/63 10/20/19 20:50 57 21 40 10/20/19 20:18 61 151/60 10/20/19 20:00 98.1 61 21 151/60 (90) 99 10/20/19 20:00 Mechanical Ventilator Mechanical Ventilator Mechanical Ventilator 10/20/19 20:00 40 10/20/19 19:11 60 22 40 10/20/19 19:05 57 10/20/19 17:29 154/65 10/20/19 17:12 97.9 10/20/19 17:00 56 21 40 10/20/19 16:00 96.6 62 21 154/56 (88) 99 10/20/19 16:00 Mechanical Ventilator Mechanical Ventilator Mechanical Ventilator 10/20/19 16:00 40 10/20/19 16:00 55 10/20/19 15:30 58 22 40 10/20/19 14:14 141/55 10/20/19 14:00 57 141/55 10/20/19 13:02 57 26 40 10/20/19 12:00 Mechanical Ventilator Mechanical Ventilator Mechanical Ventilator 10/20/19 12:00 40 10/20/19 12:00 57 10/20/19 12:00 97.9 54 21 141/55 (83) 98 10/20/19 11:16 54 29 40 Intake and Output 10/20/19 10/21/19 19:00 07:00 Intake Total 695 ml 735 ml Output Total 500 ml 500 ml Balance 195 ml 235 ml Intake Free Water 200 ml 200 ml IV Total 55 ml 55 ml Tube Feeding 440 ml 480 ml Output Urine Total 500 ml 500 ml # Bowel Movements 1 1 Laboratory Tests 10/21/19 03:48: White Blood Count 9.0, Red Blood Count 3.45L, Hemoglobin 10.5L, Hematocrit 32.0L , Mean Corpuscular Volume 93, Mean Corpuscular Hemoglobin 30.3, Mean Corpuscular Hemoglobin Concent 32.7, Red Cell Distribution Width 14.9H, Platelet Count 394, Mean Platelet Volume 4.9L, Neutrophils (%) (Auto) 71.2, Lymphocytes (%) (Auto) 20.1, Monocytes (%) (Auto) 4.6, Eosinophils (%) (Auto) 3.4H, Basophils (%) (Auto) 0.7, Sodium Level 134L, Potassium Level 3.1L, Chloride Level 97L, Carbon Dioxide Level 28, Anion Gap 9, Blood Urea Nitrogen 68H, Creatinine 2.4H, Estimat Glomerular Filtration Rate 21.7, Glucose Level 114H, Calcium Level 9.1, Phosphorus Level 3.7, Magnesium Level 3.0H, Total Bilirubin 0.3, Aspartate Amino Transf (AST/SGOT) 26, Alanine Aminotransferase ( ALT/SGPT) 11L, Alkaline Phosphatase 177H, Total Protein 6.8, Albumin 1.8L, Globulin 5.0, Albumin/Globulin Ratio 0.4L Height (Feet): 5 Height (Inches): 5.00 Weight (Pounds): 144 General Appearance: no apparent distress EENT: normal ENT inspection Neck: supple Cardiovascular: normal rate Respiratory/Chest: decreased breath sounds Abdomen: normal bowel sounds, non tender, soft Extremities: non-tender Inder Mccauley MD Oct 21, 2019 10:11
--- NOTE | 2019-10-21 10:15 | Infectious Diseases Prog Note ---
Assessment/Plan 49yo F with: Fever, recurrent; SP Leukocytosis, recurrent -10/14 Bcx NTD Acute hypoxic resp failure: Now on vent, worsening, FiO2 100% > 80% 09/27 > 60% >40% 10/08 >30% 10/09 >40% 10/14 Pneumonia, COVID19 neg x3 - MDR PsA pneumonia,s pr x 10/14 CXR: Increased right pleural fluid and parenchymal disease, since previous exam of 10/09/2019. Stable pleural and parenchymal disease on the left sp cx ESBL P. mirabilis, MDR P.a. ( S only to Gent) 10/07 CXR: Bilateral infiltrates versus edema, left greater than right pleural effusions are again demonstrated, unchanged. There is slightly better inspiration currently. 09/29 CXR: Bilateral edema versus infiltrates appears slightly worse than on the prior study. There is probably some pleural fluid on the left. 09/26 S/P thoracentesis, 900cc removed, only 67 WBC in fluid analysis, unlikely empyema 09/26 CXR: Worsening R perihilar opacity 09/26 BCx Neg 09/24 CXR: Previously demonstrated right lateral basilar lucency is no longer evident, was presumably a skin fold artifact. Bilateral infiltrates and left pleural effusion are probably unchanged allowing for slight differences in technique. 09/22 Resp cx + MDR PsA (S-gent; I-colistin; R-levofloxacin, Zosyn, angelo) 09/22 BCx NTD 09/22 CXR: worsening BL pna 09/22 UA w/ persistent pyuria, now on HD, UCx +VRE, most likely colonizer as improving wo tx for this 09/19 V/Q scan, low probability of PE 09/18 Rapid COVID PCR neg 09/18 CT chest: Markedly suboptimal examination due to lack of IV contrast material. Bilateral pleural effusions, right greater than left, with bilateral lower lobe consolidation or volume loss. Ground glass densities in the upper lobes bilaterally. This is not specific. Tracheostomy. Increased superior mediastinal density. Stability of adenopathy cannot be excluded. Atherosclerotic change. Gastrostomy. Ascites. Left renal stent with left hydronephrosis and renal atrophy. 09/17 Chest US: Trace right and small left pleural effusions. No safe window identified for bedside thoracentesis. Note that the majority of the left pleural effusion is subpulmonic. 09/16 CXR: Worsening of right lung infiltrates and right effusion. V. duplex: NO DVT D-dimer elevated 09/15 Rapid COVID PCR neg 09/15 Sp cx ESBL P. mirablis 09/14 CXR: Bilateral airspace opacities, preferentially involving the right lung, consistent with multifocal infiltrate. Trace bilateral pleural effusions. No pneumothorax. Rapid COVID PCR neg Urine legionella neg 09/16 GPC bacteremia, real vs contaminant; does have hx of infected PPM- 09/14 Bcx 2/ S. epidermis; 09/15, , Bcx Neg 2d echo: no vegetations seen UTI, recurrent 09/14 u/a wbc tnct, nit neg, leuk +3; ucx >100k MDR P. stuarti (S Ceftriaxone, Meropenem) 09/22 UA w/ ongoing pyuria, unchanged 10/07 u/a wbc tnct, nit neg, leuk ; ucx >100k VRE 10/14 u/a wbc tnct; ucx >100k ESBL P. stuarti (S ertapenem, aztreonam) Unstageable sacral ulceration JAVIER on CKD --> now on HD Renal US: Limited exam due to abdominal ascites and shadowing from bowel gas. CT recommended for more sensitive evaluation. Moderate right hydronephrosis. Increased renal parenchymal echogenicity suggesting intrinsic/ medical renal disease. Question indwelling left ureteral stent versus artifact. Bladder not visualized. 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 epi-11/2018, sp > 6weeks IV vancomycin 11/27 SP ABBIE: no evidence for vegetation on any of the valves 11/26/18 SP PPM removal: OR findings:The fibrous capsule enclosing the generator was then opened and there was a [id number] amount of yellowish fluid drainage. The generator was then removed.Atrial and ventricular leads were detached. The necrotic tissue of the pocket was then removed and the pocket was flushed with an antibiotic solution. Capsule, wound tissue and lead tip cx: Neg 2d echo: no vegetation seen US chest: 4.6 x 3.4 x 0.9 cm hypoechoic/anechoic area overlying left chest pacemaker power pack. This could represent either a discrete fluid collection or a focal area of very edematous tissue. Infected fluid pocket also possible. 11/18 Bcx 3/4 S. epi; 11/20 Bcx neg; 11/24 Bcx Neg; 11/27 Bcx Neg Hx of PNA 11/2019? sp cx PsA (arnett S), ABC (I Ceftriaxone; otherwise negative) Sp cx MRSA, ABC (I Ceftriaxone; otherwise S) PMH: Afib HTN Dysphagia sp GT Aortic dissection s/p repair 2017, S/p PPM Parkinson's Disease Schizophrenia Anxiety COPD Chronic resp failure s/p trach Hx of tracheal bleeding [place] resident ([facility]) Plan: Continue Meropenem #3/7 for UTI and PNA given recurrent leukocytosis ( Note not treating MDR P.a. as it is likely a colonizer and patient stable without CXR evidence of PNA and leukocytosis resolved on Meropenem) 10/14 SP Daptomycin #5 10/03 SP Zerbaxa #6, gent #7 for MDR PsA pna 09/29 SP vanco #15 for S.epi in BCx 09/27 SP angelo #13 09/16 SP Cefepime #3, Levaquin #3 Monitor CBC/CMP, temperatures trach/ peg care Aspiration precautions D/w RN and pulmonary team Thank you for this consultation. Will continue to follow along with you. Subjective Allergies: Coded Allergies: No Known Allergies (Unverified , 10/10/17) Afebrile Stable on Vent 40% O2 No Leukocytosis Objective Last 24 Hour Vital Signs Date Time Temp Pulse Resp B/P (MAP) Pulse Ox O2 Delivery O2 Flow Rate FiO2 10/21/19 09:01 137/61 10/21/19 09:00 58 137/61 10/21/19 08:00 Mechanical Ventilator Mechanical Ventilator Mechanical Ventilator 10/21/19 08:00 40 10/21/19 08:00 56 10/21/19 08:00 98.2 59 21 137/61 (86) 97 10/21/19 07:00 56 22 40 10/21/19 05:34 153/62 10/21/19 05:33 57 153/62 10/21/19 05:15 54 20 40 10/21/19 04:00 Mechanical Ventilator Mechanical Ventilator Mechanical Ventilator 10/21/19 04:00 40 10/21/19 04:00 97.9 56 21 145/66 (92) 99 10/21/19 03:39 55 9/7/20 03:05 55 20 40 10/21/19 01:15 55 20 40 10/21/19 00:00 98.1 57 21 135/57 (83) 99 10/21/19 00:00 Mechanical Ventilator Mechanical Ventilator Mechanical Ventilator 10/20/19 23:55 59 10/20/19 23:05 56 20 40 10/20/19 21:20 55 151/63 10/20/19 21:19 151/63 10/20/19 20:50 57 21 40 10/20/19 20:18 61 151/60 10/20/19 20:00 98.1 61 21 151/60 (90) 99 10/20/19 20:00 Mechanical Ventilator Mechanical Ventilator Mechanical Ventilator 10/20/19 20:00 40 10/20/19 19:11 60 22 40 10/20/19 19:05 57 10/20/19 17:29 154/65 10/20/19 17:12 97.9 10/20/19 17:00 56 21 40 10/20/19 16:00 96.6 62 21 154/56 (88) 99 10/20/19 16:00 Mechanical Ventilator Mechanical Ventilator Mechanical Ventilator 10/20/19 16:00 40 10/20/19 16:00 55 10/20/19 15:30 58 22 40 10/20/19 14:14 141/55 10/20/19 14:00 57 141/55 10/20/19 13:02 57 26 40 10/20/19 12:00 Mechanical Ventilator Mechanical Ventilator Mechanical Ventilator 10/20/19 12:00 40 10/20/19 12:00 57 10/20/19 12:00 97.9 54 21 141/55 (83) 98 10/20/19 11:16 54 29 40 Height (Feet): 5 Height (Inches): 5.00 Weight (Pounds): 144 Gen: On vent HEENT; NCAT, Intubated Respiratory: Equal rise and fall, RRR Gastrointestinal: Soft ND Skin: No rash on exposed skin Laboratory Tests Test 10/21/19 03:48 White Blood Count 9.0 K/UL (4.8-10.8) Red Blood Count 3.45 M/UL (4.20-5.40) L Hemoglobin 10.5 G/DL (12.0-16.0) L Hematocrit 32.0 % (37.0-47.0) L Mean Corpuscular Volume 93 FL (80-99) Mean Corpuscular Hemoglobin 30.3 PG (27.0-31.0) Mean Corpuscular Hemoglobin Concent 32.7 G/DL (32.0-36.0) Red Cell Distribution Width 14.9 % (11.6-14.8) H Platelet Count 394 K/UL (150-450) Mean Platelet Volume 4.9 FL (6.5-10.1) L Neutrophils (%) (Auto) 71.2 % (45.0-75.0) Lymphocytes (%) (Auto) 20.1 % (20.0-45.0) Monocytes (%) (Auto) 4.6 % (1.0-10.0) Eosinophils (%) (Auto) 3.4 % (0.0-3.0) H Basophils (%) (Auto) 0.7 % (0.0-2.0) Sodium Level 134 MMOL/L (136-145) L Potassium Level 3.1 MMOL/L (3.5-5.1) L Chloride Level 97 MMOL/L (98-107) L Carbon Dioxide Level 28 MMOL/L (21-32) Anion Gap 9 mmol/L (5-15) Blood Urea Nitrogen 68 mg/dL (7-18) H Creatinine 2.4 MG/DL (0.55-1.30) H Estimat Glomerular Filtration Rate 21.7 mL/min (>60) Glucose Level 114 MG/DL (74-106) H Calcium Level 9.1 MG/DL (8.5-10.1) Phosphorus Level 3.7 MG/DL (2.5-4.9) Magnesium Level 3.0 MG/DL (1.8-2.4) H Total Bilirubin 0.3 MG/DL (0.2-1.0) Aspartate Amino Transf (AST/SGOT) 26 U/L (15-37) Alanine Aminotransferase (ALT/SGPT) 11 U/L (12-78) L Alkaline Phosphatase 177 U/L (46-116) H Total Protein 6.8 G/DL (6.4-8.2) Albumin 1.8 G/DL (3.4-5.0) L Globulin 5.0 g/dL Albumin/Globulin Ratio 0.4 (1.0-2.7) L Current Medications Medications (Trade) Dose Ordered Sig/Penny Route PRN Reason Start Time Stop Time Status Last Admin Dose Admin Acetaminophen (Tylenol) 325 mg Q4H PRN GT Mild Pain (Pain Scale 1-3) 10/17/19 18:45 11/16/19 18:44 10/21/19 09:46 Acetaminophen (Tylenol) 325 mg Q6H PRN GT Temp >100.5 10/11/19 04:45 10/23/19 10:44 10/19/19 13:21 Ascorbic Acid (Vitamin C) 500 mg DAILY ORAL 10/11/19 09:00 11/05/19 08:59 10/21/19 09:00 Chlorhexidine Gluconate (Ling-Hex 2%) 1 applic DAILY@1999 TOPIC 10/11/19 20:00 12/22/19 19:59 10/20/19 20:17 Clonidine HCl (Catapres TTS-3) 1 patch QWEEK TDERMAL 10/14/19 12:00 01/12/20 11:59 10/14/19 11:51 Dextrose (Dextrose 50%) 25 ml Q30M PRN IV Hypoglycemia 10/11/19 04:30 01/03/20 18:29 Dextrose (Dextrose 50%) 50 ml Q30M PRN IV Hypoglycemia 10/11/19 04:30 01/03/20 18:29 Diltiazem HCl (Cardizem Tab) 90 mg Q8HR GT 10/16/19 14:00 11/09/19 11:59 10/19/19 13:16 Docusate Sodium (Colace) 100 mg Q8HR GT 10/14/19 14:01 11/13/19 14:00 10/21/19 05:33 Epoetin Gelacio (Epoetin Gelacio(ESRD on dialysis)) 10,000 unit MON-MON-MON SUBQ 10/14/19 21:00 01/12/20 20:59 10/18/19 21:09 Haloperidol Lactate (Haldol) 5 mg Q6H PRN IM Agitation 10/11/19 05:00 11/22/19 10:59 10/20/19 00:06 Heparin Sodium (Porcine) (Heparin 5000 units/ml) 5,000 units EVERY 12 HOURS SUBQ 10/11/19 09:00 10/30/19 08:59 10/21/19 09:02 Insulin Aspart (NovoLOG) Q6HR SUBQ 10/11/19 06:00 01/03/20 20:59 Lansoprazole (Prevacid) 30 mg Q12HR GT 10/11/19 09:00 10/27/19 20:59 10/21/19 09:00 Lisinopril (PriniviL) 20 mg BID GT 10/11/19 09:00 11/08/19 17:59 10/21/19 09:01 Meropenem 500 mg/ Sodium Chloride 55 ml @ 110 mls/hr Q12H IVPB 10/20/19 01:00 10/25/19 00:59 10/21/19 00:05 Metoclopramide HCl (Reglan) 5 mg EVERY 6 HOURS GT 10/11/19 06:00 11/08/19 11:59 10/21/19 05:33 Metoprolol Tartrate (Lopressor) 25 mg Q12HR GT 10/11/19 09:00 01/07/20 20:59 10/20/19 20:18 Minoxidil (Loniten) 2.5 mg Q8HR ORAL 10/11/19 06:00 01/08/20 13:59 10/21/19 05:34 Morphine Sulfate (Morphine Sulfate) 2 mg Q6H PRN IVP For Pain 10/16/19 09:45 10/23/19 09:44 10/19/19 14:23 Polyethylene Glycol (Miralax) 17 gm BEDTIME ORAL 10/11/19 21:00 10/31/19 20:59 10/19/19 20:28 Risperidone (RisperDAL) 2 mg BEDTIME ORAL 10/11/19 21:00 11/19/19 20:59 10/20/19 20:20 Sorbitol (sorbitoL) 30 ml EVERY 6 HOURS PRN GT Constipation 10/11/19 06:00 10/29/19 17:59 Vitamin B Complex/ Vit C/Folic Acid (Nephrovite) 1 tab DAILY ORAL 10/11/19 09:00 11/05/19 08:59 10/21/19 09:00 Deni Gilbert MD Oct 21, 2019 10:15
--- NOTE | 2019-10-21 11:04 | Nephrology Progress Note ---
Assessment/Plan Problem List: (1) JAVIER (acute kidney injury) (2) Renal failure (ARF), acute on chronic (3) Dehydration (4) Electrolyte imbalance (5) Anemia (6) Respiratory failure, acute and chronic (7) COPD with exacerbation Assessment Patient is presented with sepsis and pneumonia and UTI Patient has acute renal failure, possible underlying chronic kidney failure Severe anemia Electrolyte imbalances: Hyponatremia, hypo-kalemia Chronic respiratory failure, COPD exacerbation Plan October 20: Patient appears to be responding to Zaroxolyn. Will repeat 10 mg Zaroxolyn via GT today. Continue monitor renal parameters. Potassium supplements given. Dialysis as needed. October 19: Patient responded to Zaroxolyn. Urine output increased. Will try 10 mg Zaroxolyn again today. Check renal parameters tomorrow. Dialysis as needed. October 18: Last dialysis October 16. Serum creatinine rising. Oliguria persists. Continue to monitor renal parameters and dialysis as needed. October 17: It appears that the patient received dialysis last night and the dialysis nurse changed her mind about delaying to today. Today's labs reviewed. Electrolyte abnormalities corrected. Continue per consultants. October 16: Late note entry due to system problem at the [facility] today.Patient due for dialysis today. Dialysis nurse informed that due to few emergencies if she can be done tomorrow. No chemistry panel for today." We will order labs on dialysis tomorrow. October 15: Last dialysis October 13. Labs were reviewed. Urine output very low. Will dialyze and ultrafiltrate tomorrow. Per consultants. October 14: Dialyzed yesterday. Labs reviewed. Medication list reviewed. Continue per consultants. October 13: Patient seen on dialysis. Tolerating well. Will check labs tomorrow. October 12: Blood pressure stable. Labs reviewed. BUN rising. Remains oliguric. Dialysis tomorrow. October 11: Blood pressure is stable. Labs reviewed. Continue as is. Dialysis as needed October 10: Blood pressure medication adjusted. Will check lab tomorrow. Dialysis as needed. Urine output remains low. October 09: Lab reviewed. Remains oliguric. Will give trial of Zaroxolyn. Continue per consultants. Adjust blood pressure medication. Will add Zaroxolyn and increased dose of Cardizem and add clonidine patch for better BP control October 08: Labs reviewed. Patient oliguric. Blood pressure elevated, BP medication adjusted. Recheck lab tomorrow. Dialysis and ultrafiltration as needed. October 07: Labs reviewed. Patient was dialyzed yesterday. 3000 mL fluid was removed. Patient appears to need periodic (twice a week minimum) dialysis for ultrafiltration. Continue to monitor renal parameters. Continue per consultants. October 06: Labs reviewed. Discussed with pulmonary. Will attempt dialysis and ultrafiltration. Continue per consultants. October 05: Lab reviewed. Serum creatinine rising. Blood pressure stabilized. Will recheck lab tomorrow. Dialysis as needed. Will increase lisinopril to 10 mg twice a day. October 04: Lab reviewed. Blood pressure medication adjusted since the patient is hypotensive. Serum creatinine rising. Recheck labs tomorrow. Dialysis as needed. Discussed with RN. October 03: Lab reviewed. Zestril added to BP medication. 1 dose of Seroquel ordered for agitation. Continue to monitor renal parameters. Continue per consultants. October 02: Lab reviewed. Potassium supplement IV given. 3% saline 250 cc ordered. Responded well to Zaroxolyn yesterday. Will continue to monitor electrolytes and renal parameters. Will increase minoxidil to 2.5 mg every 6 hours. October 01: Labs reviewed. Potassium supplement given. Last dialysis September 29. Serum creatinine rising gradually. Urine output very low. Patient appears to continue to need dialysis at least twice a week. Blood pressure still running high I will switch the hydralazine to minoxidil. We will give 1 dose of Zaroxolyn 10 mg today. Will check renal parameters tomorrow. September 30: Patient dialyzed yesterday. 3 L removed. Labs reviewed. Potassium supplement given. Continue per consultants. It appears that the patient required dialysis 2-3 times a week. September 29: Lab reviewed. Chest x-ray result noted. Continues to have pulmonary congestion. Urine output low. Will attempt dialysis again today with ultrafiltration. September 28: Lab reviewed. ABG reviewed. Potassium supplement given. No dialysis at this point. Will eval patient status and renal parameters daily. September 27: Lab reviewed. Last dialysis September 25. Continue to monitor renal parameters. Hemodialysis as needed. September 26: Lab reviewed. Dialyzed yesterday. Potassium supplement given. Medication list reviewed. Will observe renal parameters and arrange for dialysis as needed. September 25: Lab reviewed. Currently on hemodialysis. Tolerating well. Stable from renal standpoint of view. Blood pressure medication adjusted by increasing hydralazine. September 24: Lab reviewed. ABG reviewed. Both lab and ABG much improved. Patient was dialyzed yesterday. We will attempt dialysis tomorrow again. Will adjust that blood pressure medication dosages. September 23: Lab reviewed. ABG reviewed. Patient acidotic. IV bicarb 1 dose is given. Patient has dialysis catheter. Will order dialysis for ultrafiltration and correction of acid-base. Discussed with ERASMO Mohr. September 22: Labs reviewed. Potassium high. Kayexalate and Reglan given. Will discuss with the consultants regarding initiation of dialysis. September 21: Patient is being sedated. Labs reviewed. Potassium supplement discontinued. GFR 20. Continue per current treatment plan. Dialysis and ultrafiltration is a consideration. September 20: Patient periodically agitated. Labs reviewed. Creatinine 2.4. Medication reviewed. Continue per consultants. Calculated creatinine clearance 21. May need isolated ultrafiltration on dialysis. Will discuss with PMD. Meanwhile hemoglobin is lower, defer transfusion to PMD. September 19: DC IV fluid. Zaroxolyn via GT tube. Potassium supplement. Attempt to diurese. Chest CT as bilateral pleural effusion. If diuresis unsuccessful, will consider dialysis and ultrafiltration. September 18: Potassium supplement IV given. Hemoglobin stable. Patient remains full code. Continue per consultants. Previously: Potassium supplement IV Slow IV hydration Epogen subcu Adjust blood pressure medication IV fluid, rate adjusted Norman catheter, intake and output Monitor renal parameters Avoid nephrotoxic's Antibiotics Per orders 2D echocardiogram Kidney ultrasound Subjective ROS Limited/Unobtainable: Yes Objective Objective Last 24 Hour Vital Signs Date Time Temp Pulse Resp B/P (MAP) Pulse Ox O2 Delivery O2 Flow Rate FiO2 10/21/19 09:01 137/61 10/21/19 09:00 58 137/61 10/21/19 08:00 Mechanical Ventilator Mechanical Ventilator Mechanical Ventilator 10/21/19 08:00 40 10/21/19 08:00 56 10/21/19 08:00 98.2 59 21 137/61 (86) 97 10/21/19 07:00 56 22 40 10/21/19 05:34 153/62 10/21/19 05:33 57 153/62 10/21/19 05:15 54 20 40 10/21/19 04:00 Mechanical Ventilator Mechanical Ventilator Mechanical Ventilator 10/21/19 04:00 40 10/21/19 04:00 97.9 56 21 145/66 (92) 99 10/21/19 03:39 55 10/21/19 03:05 55 20 40 10/21/19 01:15 55 20 40 10/21/19 00:00 98.1 57 21 135/57 (83) 99 10/21/19 00:00 Mechanical Ventilator Mechanical Ventilator Mechanical Ventilator 10/20/19 23:55 59 10/20/19 23:05 56 20 40 10/20/19 21:20 55 151/63 10/20/19 21:19 151/63 10/20/19 20:50 57 21 40 10/20/19 20:18 61 151/60 10/20/19 20:00 98.1 61 21 151/60 (90) 99 10/20/19 20:00 Mechanical Ventilator Mechanical Ventilator Mechanical Ventilator 10/20/19 20:00 40 10/20/19 19:11 60 22 40 10/20/19 19:05 57 10/20/19 17:29 154/65 10/20/19 17:12 97.9 10/20/19 17:00 56 21 40 10/20/19 16:00 96.6 62 21 154/56 (88) 99 10/20/19 16:00 Mechanical Ventilator Mechanical Ventilator Mechanical Ventilator 10/20/19 16:00 40 10/20/19 16:00 55 10/20/19 15:30 58 22 40 10/20/19 14:14 141/55 10/20/19 14:00 57 141/55 10/20/19 13:02 57 26 40 10/20/19 12:00 Mechanical Ventilator Mechanical Ventilator Mechanical Ventilator 10/20/19 12:00 40 10/20/19 12:00 57 10/20/19 12:00 97.9 54 21 141/55 (83) 98 10/20/19 11:16 54 29 40 Intake and Output 10/20/19 10/21/19 19:00 07:00 Intake Total 695 ml 735 ml Output Total 500 ml 500 ml Balance 195 ml 235 ml Intake Free Water 200 ml 200 ml IV Total 55 ml 55 ml Tube Feeding 440 ml 480 ml Output Urine Total 500 ml 500 ml # Bowel Movements 1 1 Laboratory Tests 10/21/19 03:48: White Blood Count 9.0, Red Blood Count 3.45L, Hemoglobin 10.5L, Hematocrit 32.0L , Mean Corpuscular Volume 93, Mean Corpuscular Hemoglobin 30.3, Mean Corpuscular Hemoglobin Concent 32.7, Red Cell Distribution Width 14.9H, Platelet Count 394, Mean Platelet Volume 4.9L, Neutrophils (%) (Auto) 71.2, Lymphocytes (%) (Auto) 20.1, Monocytes (%) (Auto) 4.6, Eosinophils (%) (Auto) 3.4H, Basophils (%) (Auto) 0.7, Sodium Level 134L, Potassium Level 3.1L, Chloride Level 97L, Carbon Dioxide Level 28, Anion Gap 9, Blood Urea Nitrogen 68H, Creatinine 2.4H, Estimat Glomerular Filtration Rate 21.7, Glucose Level 114H, Calcium Level 9.1, Phosphorus Level 3.7, Magnesium Level 3.0H, Total Bilirubin 0.3, Aspartate Amino Transf (AST/SGOT) 26, Alanine Aminotransferase ( ALT/SGPT) 11L, Alkaline Phosphatase 177H, Total Protein 6.8, Albumin 1.8L, Globulin 5.0, Albumin/Globulin Ratio 0.4L Height (Feet): 5 Height (Inches): 5.00 Weight (Pounds): 144 General Appearance: no apparent distress EENT: other - Connected to ventilator Cardiovascular: normal rate Respiratory/Chest: decreased breath sounds Abdomen: soft, distended Objective No change Johnny Houston MD Oct 21, 2019 11:04
[2019-10-21 12:00] VITALS: BP 158/72
--- NOTE | 2019-10-21 12:21 | Surgery Progress Note ---
Surgery Progress Note Subjective Symptoms: improved, tolerating diet, passing flatus, BM Objective Last 24 Hour Vital Signs Date Time Temp Pulse Resp B/P (MAP) Pulse Ox O2 Delivery O2 Flow Rate FiO2 10/21/19 12:00 98.2 64 30 158/72 (100) 99 10/21/19 12:00 40 10/21/19 12:00 Mechanical Ventilator Mechanical Ventilator Mechanical Ventilator 10/21/19 10:16 98.2 10/21/19 09:01 137/61 10/21/19 09:00 58 137/61 10/21/19 08:00 Mechanical Ventilator Mechanical Ventilator Mechanical Ventilator 10/21/19 08:00 40 10/21/19 08:00 56 10/21/19 08:00 98.2 59 21 137/61 (86) 97 10/21/19 07:00 56 22 40 10/21/19 05:34 153/62 10/21/19 05:33 57 153/62 10/21/19 05:15 54 20 40 10/21/19 04:00 Mechanical Ventilator Mechanical Ventilator Mechanical Ventilator 10/21/19 04:00 40 10/21/19 04:00 97.9 56 21 145/66 (92) 99 10/21/19 03:39 55 10/21/19 03:05 55 20 40 10/21/19 01:15 55 20 40 10/21/19 00:00 98.1 57 21 135/57 (83) 99 10/21/19 00:00 Mechanical Ventilator Mechanical Ventilator Mechanical Ventilator 10/20/19 23:55 59 10/20/19 23:05 56 20 40 10/20/19 21:20 55 151/63 10/20/19 21:19 151/63 10/20/19 20:50 57 21 40 10/20/19 20:18 61 151/60 10/20/19 20:00 98.1 61 21 151/60 (90) 99 10/20/19 20:00 Mechanical Ventilator Mechanical Ventilator Mechanical Ventilator 10/20/19 20:00 40 10/20/19 19:11 60 22 40 10/20/19 19:05 57 10/20/19 17:29 154/65 10/20/19 17:00 56 21 40 10/20/19 16:00 96.6 62 21 154/56 (88) 99 9/6/20 16:00 Mechanical Ventilator Mechanical Ventilator Mechanical Ventilator 10/20/19 16:00 40 10/20/19 16:00 55 10/20/19 15:30 58 22 40 10/20/19 14:14 141/55 10/20/19 14:00 57 141/55 10/20/19 13:02 57 26 40 I&O Intake and Output 10/20/19 10/21/19 19:00 07:00 Intake Total 695 ml 735 ml Output Total 500 ml 500 ml Balance 195 ml 235 ml Intake Free Water 200 ml 200 ml IV Total 55 ml 55 ml Tube Feeding 440 ml 480 ml Output Urine Total 500 ml 500 ml # Bowel Movements 1 1 Dressing: saturated Cardiovascular: RSR Respiratory: decreased breath sounds Abdomen: soft, non-tender, present bowel sounds Extremities: no edema, no tenderness, no cyanosis Laboratory Tests Test 10/21/19 03:48 White Blood Count 9.0 K/UL (4.8-10.8) Red Blood Count 3.45 M/UL (4.20-5.40) L Hemoglobin 10.5 G/DL (12.0-16.0) L Hematocrit 32.0 % (37.0-47.0) L Mean Corpuscular Volume 93 FL (80-99) Mean Corpuscular Hemoglobin 30.3 PG (27.0-31.0) Mean Corpuscular Hemoglobin Concent 32.7 G/DL (32.0-36.0) Red Cell Distribution Width 14.9 % (11.6-14.8) H Platelet Count 394 K/UL (150-450) Mean Platelet Volume 4.9 FL (6.5-10.1) L Neutrophils (%) (Auto) 71.2 % (45.0-75.0) Lymphocytes (%) (Auto) 20.1 % (20.0-45.0) Monocytes (%) (Auto) 4.6 % (1.0-10.0) Eosinophils (%) (Auto) 3.4 % (0.0-3.0) H Basophils (%) (Auto) 0.7 % (0.0-2.0) Sodium Level 134 MMOL/L (136-145) L Potassium Level 3.1 MMOL/L (3.5-5.1) L Chloride Level 97 MMOL/L (98-107) L Carbon Dioxide Level 28 MMOL/L (21-32) Anion Gap 9 mmol/L (5-15) Blood Urea Nitrogen 68 mg/dL (7-18) H Creatinine 2.4 MG/DL (0.55-1.30) H Estimat Glomerular Filtration Rate 21.7 mL/min (>60) Glucose Level 114 MG/DL (74-106) H Calcium Level 9.1 MG/DL (8.5-10.1) Phosphorus Level 3.7 MG/DL (2.5-4.9) Magnesium Level 3.0 MG/DL (1.8-2.4) H Total Bilirubin 0.3 MG/DL (0.2-1.0) Aspartate Amino Transf (AST/SGOT) 26 U/L (15-37) Alanine Aminotransferase (ALT/SGPT) 11 U/L (12-78) L Alkaline Phosphatase 177 U/L (46-116) H Total Protein 6.8 G/DL (6.4-8.2) Albumin 1.8 G/DL (3.4-5.0) L Globulin 5.0 g/dL Albumin/Globulin Ratio 0.4 (1.0-2.7) L Plan Problems: (1) Anemia (2) Proteinuria (3) UTI (urinary tract infection) (4) ARF (acute renal failure) (5) ACS (acute coronary syndrome) (6) Respiratory failure, acute and chronic (7) HCAP (healthcare-associated pneumonia) (8) Abrasion of lip, initial encounter (9) COPD with exacerbation (10) Hypokalemia (11) Sepsis Assessment & Plan: Leukocytosis, anemia, abnormal labs. Renal insufficiency potentially dehydrated Abnormal LFTs alk phos elevated Urine noted significant bacteria likely UTI etiology Wound stable still requiring local care IV antibiotics per infectious disease Discussed with animal husbandry technician Dr. Berkowitz air mattress turn q2h nutritional tf will follow with recs thank you CT noted pending VQ scan - noted poor study low prob PE work respiratory increasing needs sedation weaning vent settings 80% peep 10 now comfortable Hd line in receiving HD plan for left thora 09/26 cont weaning vent as tolerated improving labs improved placement d/c planning (12) Chronic respiratory failure (13) Ascites (14) Bacteremia (15) Hypernatremia (16) Pleural effusion (17) Pacemaker (18) Aortic dissection, thoracic (19) Tracheostomy in place Assessment & Plan: trach stable no bleeding currently likely tongue etiology of mild oozing currently hemostatic without trauma (20) Feeding by G-tube Assessment & Plan: okay to resume tube feeds via g tube patent and functional dressings okay DAILY ESTIMATED NEEDS: Needs based on Pulmonary, wound 49kg 30-35 kcals/kg [id number] total kcals 1.25-2 g protein/kg 61-98 g total protein Fluid per MD NUTRITION DIAGNOSIS: * Swallowing difficulty R/T dysphagia, respiratory status as evidenced by vent dep via T-collar, GT Dep. (CURRENT TF: Nepro @45ml/hr x 24 hrs) ENTERAL NUTRITION RECOMMENDATIONS: Nepro @ 40ml/hr x 24 hrs to provide 960ml, 1728kcal, 78g prot, 698ml free water * Rec LOWER current rate to 40ml/hr for 24 hrs run. 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 Base of wound is granular with bone exposure at base of sacrococcygeal.(L)10.5cm x (W06.5cm x (D) 2.8cm , undermining 11-3 by 3.6cm @12 o'clock. small amt serosanguineous exudate noted . Drayton epithelial along edges bordered by darker skin tone without erythema. Resolving Pressure injury L ischium. Base of wound is 95% pink epithelial ,5% noni at center base of wound. No exudate noted. Both heels are boggy with non-Blanching erythema. Tx.plan: Cleanse Sacral wound with Saline. Loosely pack with Hydrogel impregnated Kerlix. Apply Moisture Barrier Periwound. Cover with Optifoam drsg Daily and prn. Apply Moisture Barrier paste to L Ischium. Cover with Optifoam drsg. Changee very 3 days and prn. Apply Cavilon Skin Barrier to both heels. Cover each heel with Optifoam drsgs. Change every 7 days and prn. Reposition at least every 2hours or as tolerated. Off-load heels with pillow. APM/MAXWELL Mattress overlay. Sacral wound resolving. Wound is smaller in size with less depth and undermining (L)8.5cm x (W)5cm x (D)1.3cm, undermining clockwise 11-3 by 2.1cm @ 12o'clock. Base of wound is pink and moist, small area of bone exposure at base. Small amt. seropurulent exudate noted. No odor noted. Periwound without evidence of further skin breakdown noted. Wound Tx. are effective and continued as ordered. Al wound prevention protocols continued as care-planned. Tx.Plan:Cleanse sacral wound with Saline. Loosely pack with Hydrogel impregnated kerlix. Apply Moisture Barrier Paste periwound. Cover with Optifoam drsg Daily and prn. Apply Cavilon Skin Barrier to both heels and malleoli. Cover eachsite with Optifoam drsgs. Change every 7 days and prn. Reposition at least every 2hours or as tolerated. Off-load heels with pillow. APM/Maxwell Mattress overlay. Lane Saavedra Oct 21, 2019 12:21
[2019-10-21 16:00] VITALS: BP 146/73
--- NOTE | 2019-10-21 19:46 | General Progress Note ---
Assessment/Plan Status: stable, other - Mood has improved he is able to smile there is no continuous tearing overall she looks better today energy looking the last several days continue with the same management Subjective Constitutional: Reports: no symptoms HEENT: Reports: no symptoms Cardiovascular: Reports: other - No chest pain shortness of breath palpitations dizziness Respiratory: Reports: other - No cough wheezing or expectoration Gastrointestinal/Abdominal: Reports: other - Tolerates feedings well Genitourinary: Reports: no symptoms Neurologic/Psychiatric: Reports: anxiety, other - Easily tearful because she was not discharged yet Endocrine: Reports: no symptoms Hematologic/Lymphatic: Reports: no symptoms Allergies: Coded Allergies: No Known Allergies (Unverified , 10/10/17) Objective Last 24 Hour Vital Signs Date Time Temp Pulse Resp B/P (MAP) Pulse Ox O2 Delivery O2 Flow Rate FiO2 10/21/19 19:33 57 21 40 10/21/19 17:14 146/73 10/21/19 17:00 57 20 40 10/21/19 16:00 40 10/21/19 16:00 67 10/21/19 16:00 Mechanical Ventilator Mechanical Ventilator Mechanical Ventilator 10/21/19 16:00 98.2 54 20 146/73 (97) 100 10/21/19 15:00 60 27 40 10/21/19 15:00 99 10/21/19 14:45 146/73 10/21/19 13:12 58 158/72 10/21/19 13:00 68 31 40 10/21/19 12:26 158/72 10/21/19 12:00 98.2 64 30 158/72 (100) 99 10/21/19 12:00 40 10/21/19 12:00 58 10/21/19 12:00 Mechanical Ventilator Mechanical Ventilator Mechanical Ventilator 10/21/19 11:23 59 27 40 10/21/19 10:30 60 21 40 10/21/19 10:16 98.2 10/21/19 09:01 137/61 10/21/19 09:00 58 137/61 10/21/19 09:00 59 22 40 10/21/19 08:00 Mechanical Ventilator Mechanical Ventilator Mechanical Ventilator 10/21/19 08:00 40 10/21/19 08:00 56 10/21/19 08:00 98.2 59 21 137/61 (86) 97 10/21/19 07:00 56 22 40 10/21/19 05:34 153/62 10/21/19 05:33 57 153/62 10/21/19 05:15 54 20 40 10/21/19 04:00 Mechanical Ventilator Mechanical Ventilator Mechanical Ventilator 10/21/19 04:00 40 10/21/19 04:00 97.9 56 21 145/66 (92) 99 10/21/19 03:39 55 10/21/19 03:05 55 20 40 10/21/19 01:15 55 20 40 10/21/19 00:00 98.1 57 21 135/57 (83) 99 10/21/19 00:00 Mechanical Ventilator Mechanical Ventilator Mechanical Ventilator 10/20/19 23:55 59 10/20/19 23:05 56 20 40 10/20/19 21:20 55 151/63 10/20/19 21:19 151/63 10/20/19 20:50 57 21 40 10/20/19 20:18 61 151/60 10/20/19 20:00 98.1 61 21 151/60 (90) 99 10/20/19 20:00 Mechanical Ventilator Mechanical Ventilator Mechanical Ventilator 10/20/19 20:00 40 Intake and Output 10/20/19 10/21/19 19:00 07:00 Intake Total 695 ml 735 ml Output Total 500 ml 500 ml Balance 195 ml 235 ml Intake Free Water 200 ml 200 ml IV Total 55 ml 55 ml Tube Feeding 440 ml 480 ml Output Urine Total 500 ml 500 ml # Bowel Movements 1 1 Laboratory Tests 10/21/19 03:48: White Blood Count 9.0, Red Blood Count 3.45L, Hemoglobin 10.5L, Hematocrit 32.0L , Mean Corpuscular Volume 93, Mean Corpuscular Hemoglobin 30.3, Mean Corpuscular Hemoglobin Concent 32.7, Red Cell Distribution Width 14.9H, Platelet Count 394, Mean Platelet Volume 4.9L, Neutrophils (%) (Auto) 71.2, Lymphocytes (%) (Auto) 20.1, Monocytes (%) (Auto) 4.6, Eosinophils (%) (Auto) 3.4H, Basophils (%) (Auto) 0.7, Sodium Level 134L, Potassium Level 3.1L, Chloride Level 97L, Carbon Dioxide Level 28, Anion Gap 9, Blood Urea Nitrogen 68H, Creatinine 2.4H, Estimat Glomerular Filtration Rate 21.7, Glucose Level 114H, Calcium Level 9.1, Phosphorus Level 3.7, Magnesium Level 3.0H, Total Bilirubin 0.3, Aspartate Amino Transf (AST/SGOT) 26, Alanine Aminotransferase ( ALT/SGPT) 11L, Alkaline Phosphatase 177H, Total Protein 6.8, Albumin 1.8L, Globulin 5.0, Albumin/Globulin Ratio 0.4L Height (Feet): 5 Height (Inches): 5.00 Weight (Pounds): 144 Lucas Dong MD Oct 21, 2019 19:46
[2019-10-21 20:00] VITALS: BP 145/70
[2019-10-21] MEDS: Miralax 17gm pkt ORAL SCH (20:20)
[2019-10-21] MEDS: Dyna-Hex 2% Top Sol 2oz TOPIC SCH (20:20)
[2019-10-21] MEDS: Epoetin Alfa-EPBX(ESRD on dialysis)10,000 unit/ml vial SUBQ SCH (21:44)
[2019-10-22] VITALS: BP 144/62
[2019-10-22] MEDS: Meropenem 500 MG in NS 55 ML IVPB SCH ×2 (01:11→13:06)
[2019-10-22 04:00] VITALS: BP 155/62
[2019-10-22 05:31] LABS: BASOPHILS % (AUTO) 0.7 % (0.0-2.0); EOSINOPHILS % (AUTO) 1.4 % (0.0-3.0); HEMATOCRIT 32.7 % (37.0-47.0); HEMOGLOBIN 10.7 G/DL (12.0-16.0); LYMPHOCYTES % (AUTO) 18.5 % (20.0-45.0); MEAN CORPUSCULAR VOLUME 92 FL (80-99); MONOCYTES % (AUTO) 5.1 % (1.0-10.0); NEUTROPHILS % (AUTO) 74.3 % (45.0-75.0); PLATELET COUNT 383 K/UL (150-450); RED BLOOD COUNT 3.55 M/UL (4.20-5.40); RED CELL DISTRIBUTION WIDTH 14.4 % (11.6-14.8); WHITE BLOOD COUNT 11.3 K/UL (4.8-10.8)
[2019-10-22] MEDS: Minoxidil 2.5mg tab ORAL SCH ×3 (05:32→22:37)
[2019-10-22] MEDS: Metoclopramide 10mg/10ml Liq GT SCH ×4 (05:33→23:58)
[2019-10-22] MEDS: Docusate 100mg/10ml Liq GT SCH ×3 (05:33→22:00)
[2019-10-22] MEDS: dilTIAZem HCl 90mg tab GT SCH ×3 (05:33→22:00)
[2019-10-22] MEDS: Acetaminophen 650mg/20.3ml GT PRN ×2 (05:33→11:34)
[2019-10-22] MEDS: NovoLOG Insulin Flexpen SUBQ SCH ×4 (05:34→23:58)
[2019-10-22 05:47] LABS: ALANINE AMINOTRANSFERASE 12 U/L (12-78); ALBUMIN 1.8 G/DL (3.4-5.0); ALBUMIN/GLOBULIN RATIO 0.4 (1.0-2.7); ALKALINE PHOSPHATASE 174 U/L (46-116); ANION GAP 7 mmol/L (5-15); ASPARTATE AMINO TRANSFERASE 23 U/L (15-37); BILIRUBIN,TOTAL 0.4 MG/DL (0.2-1.0); BLOOD UREA NITROGEN 69 mg/dL (7-18); CALCIUM 9.1 MG/DL (8.5-10.1); CARBON DIOXIDE 29 MMOL/L (21-32); CHLORIDE 99 MMOL/L (98-107); CREATININE 2.2 MG/DL (0.55-1.30); PHOSPHORUS 3.7 MG/DL (2.5-4.9); SODIUM 135 MMOL/L (136-145)
--- NOTE | 2019-10-22 07:24 | Hematology/Onc Progress Note ---
Assessment/Plan Assessment/Plan Assessment and Recs # Leukocytosis, now with gram positive bacteremias well as pna noted --> historically --> PPM site (pocket) infection (redness and pain, bacteremia) and likely pocket abscess - no vegetation seen on ABBIE --> is s'p pm removal and also pocket infection is better --> per cards recs in re to tach/davis --> wbc 15-->19-->17-->15-->13->12-->13-->12>13-->18-->9-->7-->16-->17->9.4 --> ABX cefepime/levaquin--> vanc/angelo-> daptomycin-->Angelo --> ID recs are noted # Anemia of chronic disease due to underlying chronic medical issues, multifactorial --> Anemia workup has been reviewed, cw acd --> No evidence of hemolysis is noted, peripheral smear has been reviewed. --> Hgb goal >7. Transfuse prn. --> Epogen started --> Medications have been reviewed --> low threshold for gi evaluation in case has occult + --> hgb 7.1-->7.8-->8.9->9.2-->8.5-->9.7-->10-->8.8-->9.6-->8.7->8.6-->7.2->8.7- >9.1-->9.2-->9-->8.7-->9.3-->9.8-->10->10.3-->10.8->10.5->10.7 --> 1 unit prbc 09/27 # Thrombocytois is likely reactive process, is s/p infection --> plt trend 610k-->706k-->354 --> p smear reviewed # Acute hypoxic respiratory failure s/p intubation 11/23- ?ARDS --> on vent/trach # Gram positive bacteremia- real bacteremia- 2ry to above and probable PNA --> per id care # JAVIER initially >2 --> on ivfs # Elevated d-dimer --> venous duplex and v/q scan neg --> negative results # Dysphagia s/p peg # Thoracic aortic dissection s/p repair early 2017 # Psychiatric history on ativan/haldol # IN resident # Dvt ppx --> heparin sq The timing of this note does not necessarily reflect the time of the patient was seen. Greatly appreciate consultation. Subjective HEENT: Denies: no symptoms, eye pain, blurred vision, tearing, double vision, ear pain, ear discharge, nose pain, nose congestion, throat pain, throat swelling, mouth pain, mouth swelling, other Cardiovascular: Denies: no symptoms, chest pain, edema, irregular heart rate, lightheadedness, palpitations, syncope, other Gastrointestinal/Abdominal: Denies: no symptoms, abdomen distended, abdominal pain, black stools, tarry stools, blood in stool, constipated, diarrhea, difficulty swallowing, nausea, poor appetite, poor fluid intake, rectal bleeding , vomiting, other Genitourinary: Denies: no symptoms, burning, discharge, frequency, flank pain, hematuria, incontinence, pain, urgency, other Neurologic/Psychiatric: Denies: no symptoms, anxiety, depressed, emotional problems, headache, numbness, paresthesia, pre-existing deficit, seizure, tingling, tremors, weakness, other Endocrine: Denies: no symptoms, excessive sweating, flushing, intolerance to cold, intolerance to heat, increased hunger, increased thirst, increased urine, unexplained weight gain, unexplained weight loss, other Hematologic/Lymphatic: Denies: no symptoms, anemia, easy bleeding, easy bruising, adenopathy, other Allergies: Coded Allergies: No Known Allergies (Unverified , 10/10/17) Subjective 09/16 on vent now, consulted in am pulm, on vent setting, labs noted, hep sq 09/17 meds noted, cbc noted, labs noted, no bleeding 09/18 is to undergo potential v/q scan given abg, labs noted, resless, on ativan, to get haldol today, roman rn 09/19 remains agitated, covering, with sacral wound seeping, likely cause of anemia, roman ramesh 09/26 restless, remains agitated, gtube ripped, eval with rn, and ifeoma consulted 09/27 remains on vent, agitated, seen by gi, hgb low, roman George to transfuse 1 unit prbc 09/28 meds noted, no bleeding, on vent, s/p blood tranfusion, cbc pending, roman rn 09/29 remains in the icu, roman rn in the am, agitated, on versed, fentanyl, restraints 09/30 in icu, trach to vent, on gtube feeds, fentanyl, agitated 10/01 in icu, roman Ayoub rn, no bleeding, sleeping, labs noted, hgb >9 10/02 sedated in icu, is on vent, roman rn, more alert and more conversive with face grimaces 10/03 labs have been reviewed, no bleeding, icu, meds reviewed, on fentanyl and versed, to consult psych 10/05 remains on fentanyl, also with restraints, no bleeding, cbc ordered 10/06 remains obtunded, though reactive when proded, labs pending from am 10/07 hypertensive, asleep, no bleeding, roman rn, no major night sweats\ 10/08 formula leaking from gtube site, no bleeding, with some minor residual 10/09 remains on gtube feeds, on lactulose, no major changes, confused but nods 10/10 labs reviewed, lactulose discontinued as having diarrhea, no bleeding 10/12 meds reviewed, no bleeding, heparin given, roman Starr rn in am, comfortable 10/13 labs are noted, no bleeding, cbc is ordered for today, somewhat agitated 10/14 has been complaining of pain and frowning, no bleeding, hgb reviewed 10/15 hgb 10.4, no bleeding, stool is hard, difficult to collect for c.diff 10/16 restless, agitated overnight, getting haldol prn, roman rn at bedside 10/17 labs are noted, no bleeding, meds reviewed, wbc 17k, on abx 10/19 labs are noted, no bleeding, meds noted, no major changes, with v/t, peg 10/20 on vent, with gtube and raymond, no bleeding, labs are noted 10/21 is trach to vent, with gtube in place, left ij hd in place, no bleeding Objective Objective Current Medications Medications (Trade) Dose Ordered Sig/Penny Route PRN Reason Start Time Stop Time Status Last Admin Dose Admin Acetaminophen (Tylenol) 325 mg Q4H PRN GT Mild Pain (Pain Scale 1-3) 10/17/19 18:45 10/3/20 18:44 10/21/19 09:46 Acetaminophen (Tylenol) 325 mg Q6H PRN GT Temp >100.5 10/11/19 04:45 10/23/19 10:44 10/22/19 05:33 Ascorbic Acid (Vitamin C) 500 mg DAILY ORAL 10/11/19 09:00 11/05/19 08:59 10/21/19 09:00 Chlorhexidine Gluconate (Ling-Hex 2%) 1 applic DAILY@2000 TOPIC 10/11/19 20:00 12/22/19 19:59 10/21/19 20:20 Clonidine HCl (Catapres TTS-3) 1 patch QWEEK TDERMAL 10/14/19 12:00 01/12/20 11:59 10/21/19 12:26 Dextrose (Dextrose 50%) 25 ml Q30M PRN IV Hypoglycemia 10/11/19 04:30 01/03/20 18:29 Dextrose (Dextrose 50%) 50 ml Q30M PRN IV Hypoglycemia 10/11/19 04:30 01/03/20 18:29 Diltiazem HCl (Cardizem Tab) 90 mg Q8HR GT 10/16/19 14:00 11/09/19 11:59 10/19/19 13:16 Docusate Sodium (Colace) 100 mg Q8HR GT 10/14/19 14:01 11/13/19 14:00 10/21/19 21:43 Epoetin Gelacio (Epoetin Gelacio(ESRD on dialysis)) 10,000 unit MON- SUBQ 10/14/19 21:00 01/12/20 20:59 10/21/19 21:44 Haloperidol Lactate (Haldol) 5 mg Q6H PRN IM Agitation 10/11/19 05:00 11/22/19 10:59 10/20/19 00:06 Heparin Sodium (Porcine) (Heparin 5000 units/ml) 5,000 units EVERY 12 HOURS SUBQ 10/11/19 09:00 10/30/19 08:59 10/21/19 20:26 Insulin Aspart (NovoLOG) Q6HR SUBQ 10/11/19 06:00 01/03/20 20:59 Lansoprazole (Prevacid) 30 mg Q12HR GT 10/11/19 09:00 10/27/19 20:59 10/21/19 20:20 Lisinopril (PriniviL) 20 mg BID GT 10/11/19 09:00 11/08/19 17:59 10/21/19 17:14 Meropenem 500 mg/ Sodium Chloride 55 ml @ 110 mls/hr Q12H IVPB 10/20/19 01:00 10/25/19 00:59 10/22/19 01:11 Metoclopramide HCl (Reglan) 5 mg EVERY 6 HOURS GT 10/11/19 06:00 11/08/19 11:59 10/22/19 05:33 Metoprolol Tartrate (Lopressor) 25 mg Q12HR GT 10/11/19 09:00 01/07/20 20:59 10/21/19 20:20 Minoxidil (Loniten) 2.5 mg Q8HR ORAL 10/11/19 06:00 01/08/20 13:59 10/22/19 05:32 Morphine Sulfate (Morphine Sulfate) 2 mg Q6H PRN IVP For Pain 10/16/19 09:45 10/23/19 09:44 10/19/19 14:23 Polyethylene Glycol (Miralax) 17 gm BEDTIME ORAL 10/11/19 21:00 10/31/19 20:59 10/21/19 20:20 Potassium Chloride (K-Dur) 40 meq TWICE A DAY GT 10/21/19 11:15 01/19/20 11:14 10/21/19 17:13 Risperidone (RisperDAL) 2 mg BEDTIME ORAL 10/11/19 21:00 11/19/19 20:59 10/21/19 20:20 Sorbitol (sorbitoL) 30 ml EVERY 6 HOURS PRN GT Constipation 10/11/19 06:00 10/29/19 17:59 Vitamin B Complex/ Vit C/Folic Acid (Nephrovite) 1 tab DAILY ORAL 10/11/19 09:00 11/05/19 08:59 10/21/19 09:00 Last 24 Hour Vital Signs Date Time Temp Pulse Resp B/P (MAP) Pulse Ox O2 Delivery O2 Flow Rate FiO2 10/22/19 05:33 57 159/73 10/22/19 05:32 159/73 10/22/19 04:00 98.1 53 20 155/62 (93) 100 10/22/19 04:00 40 10/22/19 04:00 Mechanical Ventilator Mechanical Ventilator Mechanical Ventilator 10/22/19 03:56 68 10/22/19 03:10 58 20 40 10/22/19 01:05 56 10/22/19 00:00 98.3 58 20 144/62 (89) 100 10/22/19 00:00 Mechanical Ventilator Mechanical Ventilator Mechanical Ventilator 10/21/19 23:31 54 10/21/19 23:10 58 21 40 10/21/19 21:52 54 138/74 10/21/19 21:52 138/74 10/21/19 20:20 62 145/70 10/21/19 20:00 98.2 62 20 145/70 (95) 100 10/21/19 20:00 Mechanical Ventilator Mechanical Ventilator Mechanical Ventilator 10/21/19 20:00 40 10/21/19 19:33 57 21 40 10/21/19 19:12 57 10/21/19 17:14 146/73 10/21/19 17:00 57 20 40 10/21/19 16:00 40 10/21/19 16:00 67 10/21/19 16:00 Mechanical Ventilator Mechanical Ventilator Mechanical Ventilator 10/21/19 16:00 98.2 54 20 146/73 (97) 100 10/21/19 15:00 60 27 40 10/21/19 15:00 99 10/21/19 14:45 146/73 10/21/19 13:12 58 158/72 10/21/19 13:00 68 31 40 10/21/19 12:26 158/72 10/21/19 12:00 98.2 64 30 158/72 (100) 99 10/21/19 12:00 40 10/21/19 12:00 58 10/21/19 12:00 Mechanical Ventilator Mechanical Ventilator Mechanical Ventilator 10/21/19 11:23 59 27 40 10/21/19 10:30 60 21 40 10/21/19 10:16 98.2 10/21/19 09:01 137/61 10/21/19 09:00 58 137/61 10/21/19 09:00 59 22 40 10/21/19 08:00 Mechanical Ventilator Mechanical Ventilator Mechanical Ventilator 10/21/19 08:00 40 10/21/19 08:00 56 10/21/19 08:00 98.2 59 21 137/61 (86) 97 10/21/19 07:00 56 22 40 10/21/19 05:34 153/62 10/21/19 05:33 57 153/62 10/21/19 05:15 54 20 40 10/21/19 04:00 Mechanical Ventilator Mechanical Ventilator Mechanical Ventilator 10/21/19 04:00 40 10/21/19 04:00 97.9 56 21 145/66 (92) 99 10/21/19 03:39 55 10/21/19 03:05 55 20 40 10/21/19 01:15 55 20 40 10/21/19 00:00 98.1 57 21 135/57 (83) 99 10/21/19 00:00 Mechanical Ventilator Mechanical Ventilator Mechanical Ventilator 10/20/19 23:55 59 10/20/19 23:05 56 20 40 10/20/19 21:20 55 151/63 10/20/19 21:19 151/63 10/20/19 20:50 57 21 40 10/20/19 20:18 61 151/60 10/20/19 20:00 98.1 61 21 151/60 (90) 99 10/20/19 20:00 Mechanical Ventilator Mechanical Ventilator Mechanical Ventilator 10/20/19 20:00 40 10/20/19 19:11 60 22 40 10/20/19 19:05 57 10/20/19 17:29 154/65 10/20/19 17:00 56 21 40 10/20/19 16:00 96.6 62 21 154/56 (88) 99 10/20/19 16:00 Mechanical Ventilator Mechanical Ventilator Mechanical Ventilator 10/20/19 16:00 40 10/20/19 16:00 55 10/20/19 15:30 58 22 40 10/20/19 14:14 141/55 10/20/19 14:00 57 141/55 10/20/19 13:02 57 26 40 10/20/19 12:00 Mechanical Ventilator Mechanical Ventilator Mechanical Ventilator 10/20/19 12:00 40 10/20/19 12:00 57 10/20/19 12:00 97.9 54 21 141/55 (83) 98 10/20/19 11:16 54 29 40 10/20/19 08:55 53 154/55 10/20/19 08:55 154/55 10/20/19 08:48 56 29 40 10/20/19 08:00 97.9 53 20 154/55 (88) 98 10/20/19 08:00 40 10/20/19 08:00 56 10/20/19 08:00 Mechanical Ventilator Mechanical Ventilator Mechanical Ventilator Intake and Output 10/21/19 10/22/19 19:00 07:00 Intake Total 615 ml 765 ml Output Total 500 ml 650 ml Balance 115 ml 115 ml Intake Free Water 160 ml 230 ml IV Total 55 ml 55 ml Tube Feeding 400 ml 480 ml Output Urine Total 500 ml 650 ml # Bowel Movements 2 Labs Test 10/20/19 04:50 10/21/19 03:48 10/22/19 03:10 White Blood Count 9.4 K/UL (4.8-10.8) 9.0 K/UL (4.8-10.8) 11.3 K/UL (4.8-10.8) Red Blood Count 3.53 M/UL (4.20-5.40) 3.45 M/UL (4.20-5.40) 3.55 M/UL (4.20-5.40) Hemoglobin 10.8 G/DL (12.0-16.0) 10.5 G/DL (12.0-16.0) 10.7 G/DL (12.0-16.0) Hematocrit 32.7 % (37.0-47.0) 32.0 % (37.0-47.0) 32.7 % (37.0-47.0) Mean Corpuscular Volume 93 FL (80-99) 93 FL (80-99) 92 FL (80-99) Mean Corpuscular Hemoglobin 30.6 PG (27.0-31.0) 30.3 PG (27.0-31.0) 30.0 PG (27.0-31.0) Mean Corpuscular Hemoglobin Concent 33.1 G/DL (32.0-36.0) 32.7 G/DL (32.0-36.0) 32.6 G/DL (32.0-36.0) Red Cell Distribution Width 14.9 % (11.6-14.8) 14.9 % (11.6-14.8) 14.4 % (11.6-14.8) Platelet Count 400 K/UL (150-450) 394 K/UL (150-450) 383 K/UL (150-450) Mean Platelet Volume 4.9 FL (6.5-10.1) 4.9 FL (6.5-10.1) 4.9 FL (6.5-10.1) Neutrophils (%) (Auto) 75.1 % (45.0-75.0) 71.2 % (45.0-75.0) 74.3 % (45.0-75.0) Lymphocytes (%) (Auto) 16.9 % (20.0-45.0) 20.1 % (20.0-45.0) 18.5 % (20.0-45.0) Monocytes (%) (Auto) 5.9 % (1.0-10.0) 4.6 % (1.0-10.0) 5.1 % (1.0-10.0) Eosinophils (%) (Auto) 1.6 % (0.0-3.0) 3.4 % (0.0-3.0) 1.4 % (0.0-3.0) Basophils (%) (Auto) 0.5 % (0.0-2.0) 0.7 % (0.0-2.0) 0.7 % (0.0-2.0) Sodium Level 135 MMOL/L (136-145) 134 MMOL/L (136-145) 135 MMOL/L (136-145) Potassium Level 3.5 MMOL/L (3.5-5.1) 3.1 MMOL/L (3.5-5.1) 4.0 MMOL/L (3.5-5.1) Chloride Level 98 MMOL/L (98-107) 97 MMOL/L (98-107) 99 MMOL/L (98-107) Carbon Dioxide Level 28 MMOL/L (21-32) 28 MMOL/L (21-32) 29 MMOL/L (21-32) Anion Gap 9 mmol/L (5-15) 9 mmol/L (5-15) 7 mmol/L (5-15) Blood Urea Nitrogen 65 mg/dL (7-18) 68 mg/dL (7-18) 69 mg/dL (7-18) Creatinine 2.3 MG/DL (0.55-1.30) 2.4 MG/DL (0.55-1.30) 2.2 MG/DL (0.55-1.30) Estimat Glomerular Filtration Rate 22.7 mL/min (>60) 21.7 mL/min (>60) 23.9 mL/min (>60) Glucose Level 123 MG/DL (74-106) 114 MG/DL (74-106) 100 MG/DL (74-106) Calcium Level 8.7 MG/DL (8.5-10.1) 9.1 MG/DL (8.5-10.1) 9.1 MG/DL (8.5-10.1) Phosphorus Level 4.4 MG/DL (2.5-4.9) 3.7 MG/DL (2.5-4.9) 3.7 MG/DL (2.5-4.9) Magnesium Level 3.0 MG/DL (1.8-2.4) 3.0 MG/DL (1.8-2.4) 3.0 MG/DL (1.8-2.4) Total Bilirubin 0.3 MG/DL (0.2-1.0) 0.3 MG/DL (0.2-1.0) 0.4 MG/DL (0.2-1.0) Aspartate Amino Transf (AST/SGOT) 26 U/L (15-37) 26 U/L (15-37) 23 U/L (15-37) Alanine Aminotransferase (ALT/SGPT) 14 U/L (12-78) 11 U/L (12-78) 12 U/L (12-78) Alkaline Phosphatase 184 U/L (46-116) 177 U/L (46-116) 174 U/L (46-116) Total Protein 6.7 G/DL (6.4-8.2) 6.8 G/DL (6.4-8.2) 6.8 G/DL (6.4-8.2) Albumin 1.7 G/DL (3.4-5.0) 1.8 G/DL (3.4-5.0) 1.8 G/DL (3.4-5.0) Globulin 5.0 g/dL 5.0 g/dL 5.0 g/dL Albumin/Globulin Ratio 0.3 (1.0-2.7) 0.4 (1.0-2.7) 0.4 (1.0-2.7) Height (Feet): 5 Height (Inches): 5.00 Weight (Pounds): 144 Objective Physical Exam: Vitals: reviewed General: NAD HEENT: nc, at Neck: supple ++tracn/vent Chest: clear breath sounds bilaterally Cardiovascular: RRR, no s3, s4 Abdomen: soft, nontender, nd +gtube Extremities: no cce, normal range of motion Neuro: alert Evan Muhammad MD Oct 22, 2019 07:24
[2019-10-22 08:00] VITALS: BP 147/72
[2019-10-22] MEDS: Lisinopril 20mg tab GT SCH ×2 (08:53→17:13)
[2019-10-22] MEDS: Ascorbic Acid 500mg tab ORAL SCH (08:53)
[2019-10-22] MEDS: Nephrovite tab (Rena-Vite) ORAL SCH (08:53)
[2019-10-22] MEDS: Heparin 5000 units/ml inj SUBQ SCH ×2 (08:56→20:39)
--- NOTE | 2019-10-22 09:57 | General Progress Note ---
Assessment/Plan Problem List: (1) S/P aortic dissection repair ICD Codes: Z98.890 - Other specified postprocedural states SNOMED: 209004917, 992238646 (2) Sacral decubitus ulcer, stage IV ICD Codes: L89.154 - Pressure ulcer of sacral region, stage 4 SNOMED: 689756759, 020123949 (3) Anemia ICD Codes: D64.9 - Anemia, unspecified SNOMED: 902339244 (4) GT CLOGGED (5) Feeding by G-tube ICD Codes: Z93.1 - Gastrostomy status SNOMED: 116711296, 350911899 (6) Tracheostomy in place ICD Codes: Z93.0 - Tracheostomy status SNOMED: 273044000 (7) Pacemaker ICD Codes: Z95.0 - Presence of cardiac pacemaker SNOMED: 179147792 (8) Chronic respiratory failure ICD Codes: J96.10 - Chronic respiratory failure, unspecified whether with hypoxia or hypercapnia SNOMED: 83797826 Status: stable, other - Mood has improved he is able to smile there is no continuous tearing overall she looks better today energy looking the last several days continue with the same management Assessment/Plan: GTF min GT leak add reglan monitor for residuals repeat labs abx per ID respiratory care dc planning per primary team Subjective ROS Limited/Unobtainable: No Allergies: Coded Allergies: No Known Allergies (Unverified , 10/10/17) Objective Last 24 Hour Vital Signs Date Time Temp Pulse Resp B/P (MAP) Pulse Ox O2 Delivery O2 Flow Rate FiO2 10/22/19 08:53 52 147/72 10/22/19 08:53 147/72 10/22/19 08:00 Mechanical Ventilator Mechanical Ventilator Mechanical Ventilator 10/22/19 08:00 40 10/22/19 08:00 98.8 59 20 147/72 (97) 100 10/22/19 08:00 53 10/22/19 07:07 53 20 40 10/22/19 05:33 57 159/73 10/22/19 05:32 159/73 10/22/19 04:00 98.1 53 20 155/62 (93) 100 10/22/19 04:00 40 10/22/19 04:00 Mechanical Ventilator Mechanical Ventilator Mechanical Ventilator 10/22/19 03:56 68 10/22/19 03:10 58 20 40 10/22/19 01:05 56 10/22/19 00:00 98.3 58 20 144/62 (89) 100 10/22/19 00:00 Mechanical Ventilator Mechanical Ventilator Mechanical Ventilator 10/21/19 23:31 54 10/21/19 23:10 58 21 40 10/21/19 21:52 54 138/74 10/21/19 21:52 138/74 10/21/19 20:20 62 145/70 10/21/19 20:00 98.2 62 20 145/70 (95) 100 10/21/19 20:00 Mechanical Ventilator Mechanical Ventilator Mechanical Ventilator 10/21/19 20:00 40 10/21/19 19:33 57 21 40 10/21/19 19:12 57 10/21/19 17:14 146/73 10/21/19 17:00 57 20 40 10/21/19 16:00 40 10/21/19 16:00 67 10/21/19 16:00 Mechanical Ventilator Mechanical Ventilator Mechanical Ventilator 10/21/19 16:00 98.2 54 20 146/73 (97) 100 10/21/19 15:00 60 27 40 10/21/19 15:00 99 10/21/19 14:45 146/73 10/21/19 13:12 58 158/72 10/21/19 13:00 68 31 40 10/21/19 12:26 158/72 10/21/19 12:00 98.2 64 30 158/72 (100) 99 10/21/19 12:00 40 10/21/19 12:00 58 10/21/19 12:00 Mechanical Ventilator Mechanical Ventilator Mechanical Ventilator 10/21/19 11:23 59 27 40 10/21/19 10:30 60 21 40 10/21/19 10:16 98.2 Intake and Output 10/21/19 10/22/19 19:00 07:00 Intake Total 615 ml 765 ml Output Total 500 ml 650 ml Balance 115 ml 115 ml Intake Free Water 160 ml 230 ml IV Total 55 ml 55 ml Tube Feeding 400 ml 480 ml Output Urine Total 500 ml 650 ml # Bowel Movements 2 Laboratory Tests 10/22/19 03:10: White Blood Count 11.3H, Red Blood Count 3.55L, Hemoglobin 10.7L, Hematocrit 32.7L, Mean Corpuscular Volume 92, Mean Corpuscular Hemoglobin 30.0, Mean Corpuscular Hemoglobin Concent 32.6, Red Cell Distribution Width 14.4, Platelet Count 383, Mean Platelet Volume 4.9L, Neutrophils (%) (Auto) 74.3, Lymphocytes ( %) (Auto) 18.5L, Monocytes (%) (Auto) 5.1, Eosinophils (%) (Auto) 1.4, Basophils (%) (Auto) 0.7, Sodium Level 135L, Potassium Level 4.0, Chloride Level 99, Carbon Dioxide Level 29, Anion Gap 7, Blood Urea Nitrogen 69H, Creatinine 2.2H, Estimat Glomerular Filtration Rate 23.9, Glucose Level 100, Calcium Level 9.1, Phosphorus Level 3.7, Magnesium Level 3.0H, Total Bilirubin 0.4, Aspartate Amino Transf (AST/SGOT) 23, Alanine Aminotransferase (ALT/SGPT) 12, Alkaline Phosphatase 174H, Total Protein 6.8, Albumin 1.8L, Globulin 5.0, Albumin/Globulin Ratio 0.4L Height (Feet): 5 Height (Inches): 5.00 Weight (Pounds): 144 General Appearance: no apparent distress EENT: normal ENT inspection Neck: supple Cardiovascular: normal rate Respiratory/Chest: decreased breath sounds Abdomen: hypoactive bowel sounds Extremities: non-tender Inder Mccauley MD Oct 22, 2019 09:57
--- NOTE | 2019-10-22 10:22 | Pulmonology Progress Note ---
Yara Castro [employer] 10/22/19 1022: Subjective ROS Limited/Unobtainable: Yes Allergies: Coded Allergies: No Known Allergies (Unverified , 10/10/17) Subjective in [place] now on CPAP trials with PS 8 , for the last three days tolerated 8 hrs no signs of resp distress denies CP, SOB afebrile, mild leukocytosis this am Objective Last 24 Hour Vital Signs Date Time Temp Pulse Resp B/P (MAP) Pulse Ox O2 Delivery O2 Flow Rate FiO2 10/22/19 08:53 52 147/72 10/22/19 08:53 147/72 10/22/19 08:00 Mechanical Ventilator Mechanical Ventilator Mechanical Ventilator 10/22/19 08:00 40 10/22/19 08:00 98.8 59 20 147/72 (97) 100 10/22/19 08:00 53 10/22/19 07:07 53 20 40 10/22/19 05:33 57 159/73 10/22/19 05:32 159/73 10/22/19 04:00 98.1 53 20 155/62 (93) 100 10/22/19 04:00 40 10/22/19 04:00 Mechanical Ventilator Mechanical Ventilator Mechanical Ventilator 10/22/19 03:56 68 10/22/19 03:10 58 20 40 10/22/19 01:05 56 10/22/19 00:00 98.3 58 20 144/62 (89) 100 10/22/19 00:00 Mechanical Ventilator Mechanical Ventilator Mechanical Ventilator 10/21/19 23:31 54 10/21/19 23:10 58 21 40 10/21/19 21:52 54 138/74 10/21/19 21:52 138/74 10/21/19 20:20 62 145/70 10/21/19 20:00 98.2 62 20 145/70 (95) 100 10/21/19 20:00 Mechanical Ventilator Mechanical Ventilator Mechanical Ventilator 10/21/19 20:00 40 10/21/19 19:33 57 21 40 10/21/19 19:12 57 10/21/19 17:14 146/73 10/21/19 17:00 57 20 40 10/21/19 16:00 40 10/21/19 16:00 67 10/21/19 16:00 Mechanical Ventilator Mechanical Ventilator Mechanical Ventilator 9/7/20 16:00 98.2 54 20 146/73 (97) 100 10/21/19 15:00 60 27 40 10/21/19 15:00 99 10/21/19 14:45 146/73 10/21/19 13:12 58 158/72 10/21/19 13:00 68 31 40 10/21/19 12:26 158/72 10/21/19 12:00 98.2 64 30 158/72 (100) 99 10/21/19 12:00 40 10/21/19 12:00 58 10/21/19 12:00 Mechanical Ventilator Mechanical Ventilator Mechanical Ventilator 10/21/19 11:23 59 27 40 10/21/19 10:30 60 21 40 Intake and Output 10/21/19 10/22/19 19:00 07:00 Intake Total 615 ml 765 ml Output Total 500 ml 650 ml Balance 115 ml 115 ml Intake Free Water 160 ml 230 ml IV Total 55 ml 55 ml Tube Feeding 400 ml 480 ml Output Urine Total 500 ml 650 ml # Bowel Movements 2 Objective General Appearance: no apparent distress, bedridden middle age chronically ill looking female on vent AC 500-20- 40%, PEEP 5, awake, calm-currently on CPAP PS8 Lines, tubes and drains: left jugular HD catheter HEENT: normocephalic, atraumatic, anicteric, trach - Shiley #7 cuffed XLT, secretions small amount, yellow color , thick consistency Respiratory/Chest: no accessory muscle use, BS overall CTAB Cardiovascular/Chest: normal rate, regular rhythm - SR on tele Abdomen: normal bowel sounds, non tender, soft, G tube Genitourinary/Rectal: Norman Extremities: no edema Skin Exam: warm/dry, multiple tattoos all over the body Neurologic: awake, no gross focal Musculoskeletal: atrophy - BLE Laboratory Tests 10/22/19 03:10: White Blood Count 11.3H, Red Blood Count 3.55L, Hemoglobin 10.7L, Hematocrit 32.7L, Mean Corpuscular Volume 92, Mean Corpuscular Hemoglobin 30.0, Mean Corpuscular Hemoglobin Concent 32.6, Red Cell Distribution Width 14.4, Platelet Count 383, Mean Platelet Volume 4.9L, Neutrophils (%) (Auto) 74.3, Lymphocytes ( %) (Auto) 18.5L, Monocytes (%) (Auto) 5.1, Eosinophils (%) (Auto) 1.4, Basophils (%) (Auto) 0.7, Sodium Level 135L, Potassium Level 4.0, Chloride Level 99, Carbon Dioxide Level 29, Anion Gap 7, Blood Urea Nitrogen 69H, Creatinine 2.2H, Estimat Glomerular Filtration Rate 23.9, Glucose Level 100, Calcium Level 9.1, Phosphorus Level 3.7, Magnesium Level 3.0H, Total Bilirubin 0.4, Aspartate Amino Transf (AST/SGOT) 23, Alanine Aminotransferase (ALT/SGPT) 12, Alkaline Phosphatase 174H, Total Protein 6.8, Albumin 1.8L, Globulin 5.0, Albumin/Globulin Ratio 0.4L Current Medications Medications (Trade) Dose Ordered Sig/Penny Route PRN Reason Start Time Stop Time Status Last Admin Dose Admin Acetaminophen (Tylenol) 325 mg Q4H PRN GT Mild Pain (Pain Scale 1-3) 10/17/19 18:45 11/16/19 18:44 10/21/19 09:46 Acetaminophen (Tylenol) 325 mg Q6H PRN GT Temp >100.5 10/11/19 04:45 10/23/19 10:44 10/22/19 05:33 Ascorbic Acid (Vitamin C) 500 mg DAILY ORAL 10/11/19 09:00 11/05/19 08:59 10/22/19 08:53 Chlorhexidine Gluconate (Ling-Hex 2%) 1 applic DAILY@2000 TOPIC 10/11/19 20:00 12/22/19 19:59 10/21/19 20:20 Clonidine HCl (Catapres TTS-3) 1 patch QWEEK TDERMAL 10/14/19 12:00 01/12/20 11:59 10/21/19 12:26 Dextrose (Dextrose 50%) 25 ml Q30M PRN IV Hypoglycemia 10/11/19 04:30 01/03/20 18:29 Dextrose (Dextrose 50%) 50 ml Q30M PRN IV Hypoglycemia 10/11/19 04:30 01/03/20 18:29 Diltiazem HCl (Cardizem Tab) 90 mg Q8HR GT 10/16/19 14:00 11/09/19 11:59 10/19/19 13:16 Docusate Sodium (Colace) 100 mg Q8HR GT 10/14/19 14:01 11/13/19 14:00 10/21/19 21:43 Epoetin Gelacio (Epoetin Gelacio(ESRD on dialysis)) 10,000 unit SUBQ 10/14/19 21:00 01/12/20 20:59 10/21/19 21:44 Haloperidol Lactate (Haldol) 5 mg Q6H PRN IM Agitation 10/11/19 05:00 11/22/19 10:59 10/20/19 00:06 Heparin Sodium (Porcine) (Heparin 5000 units/ml) 5,000 units EVERY 12 HOURS SUBQ 10/11/19 09:00 10/30/19 08:59 10/22/19 08:56 Insulin Aspart (NovoLOG) Q6HR SUBQ 10/11/19 06:00 01/03/20 20:59 Lansoprazole (Prevacid) 30 mg Q12HR GT 10/11/19 09:00 10/27/19 20:59 10/22/19 08:52 Lisinopril (PriniviL) 20 mg BID GT 10/11/19 09:00 11/08/19 17:59 10/22/19 08:53 Meropenem 500 mg/ Sodium Chloride 55 ml @ 110 mls/hr Q12H IVPB 10/20/19 01:00 10/25/19 00:59 10/22/19 01:11 Metoclopramide HCl (Reglan) 5 mg EVERY 6 HOURS GT 10/11/19 06:00 11/08/19 11:59 10/22/19 05:33 Metoprolol Tartrate (Lopressor) 25 mg Q12HR GT 10/11/19 09:00 01/07/20 20:59 10/21/19 20:20 Minoxidil (Loniten) 2.5 mg Q8HR ORAL 10/11/19 06:00 01/08/20 13:59 10/22/19 05:32 Morphine Sulfate (Morphine Sulfate) 2 mg Q6H PRN IVP For Pain 10/16/19 09:45 10/23/19 09:44 10/19/19 14:23 Polyethylene Glycol (Miralax) 17 gm BEDTIME ORAL 10/11/19 21:00 10/31/19 20:59 10/21/19 20:20 Potassium Chloride (K-Dur) 40 meq TWICE A DAY GT 10/21/19 11:15 01/19/20 11:14 10/22/19 08:53 Risperidone (RisperDAL) 2 mg BEDTIME ORAL 10/11/19 21:00 11/19/19 20:59 10/21/19 20:20 Sorbitol (sorbitoL) 30 ml EVERY 6 HOURS PRN GT Constipation 10/11/19 06:00 10/29/19 17:59 Vitamin B Complex/ Vit C/Folic Acid (Nephrovite) 1 tab DAILY ORAL 10/11/19 09:00 11/05/19 08:59 10/22/19 08:53 Assessment/Plan Assessment/Plan ASSESSMENT Acute on chronic hypoxemic respiratory failure ( trach dependent), now on vent Tracheostomy status, s/p change to cuffed trach Sepsis Pulmonary edema Pleural effusion -worsening left pl effusion s/p thoracentesis L pleural effusion 09/26 -900 ml Pneumonia with MDR Pseudomonas UTI CHF ? cardiorenal COPD Acute kidney injury and chronic kidney disease-requiring start of HD Hypertension Atrial fibrillation Moderate pulm HTN Moderate AR Dysphagia , feeding by G-tube Electrolyte abnormalities Anemia Toxic metabolic encephalopathy likely due to sepsis and ARF HTN PAF Fevers. leukocytosis -resolved PLAN OF CARE PAULIE on vent AC trach changed 8/4 pm from uncuffed to cuffed Shiley#[address] chest w/out contrast: - Bilateral pleural effusions, right greater than left, with bilateral lower lobe consolidation or volume loss. -Ground-glass densities in the upper lobes bilaterally. This is not specific. -Tracheostomy. -Increased superior mediastinal density. Stability of adenopathy cannot be excluded. -Atherosclerotic change. -Gastrostomy. -Ascites. -Left renal stent with left hydronephrosis and renal atrophy. VQ scan -> low probability for PE worsening resp status was due to need for HD, now after HD started, resp status improving, down to PEEP 5 and AC 20 trach care , pulmonary toilet Mucomyst was prior dc given lots of thin secretions, continue Duoneb prn rapid COVID 19 NGT x3 off Fentanyl gtt since 10/09 FiO2 down to 40% last ABG stable 10/09 CXR 10/14 -increased right pleural fluid and parenchymal disease, doubt PNA likely fluid tolerating CPAP trials with PS 8 FiO2 40% 9/5-for 8 hrs continue CPAP trials as tolerated may continue in subacute upon discharge s/p thoracentesis L pleural effusion 09/26 am -> 900 ml fluid analysis noted, unlikely empyema given small # of WBC fup with fluid cx ( apparently never sent despite orders) cytology -> NGT, no malignant cells aspiration precautions venous Duplex BLE -> NGT DVT prophylaxis pulm toilet, BP regimen optimized as per nephro monitor volumes was on gentle IVF-> dc s/p prior diuretic-Lasix require initiation of HD continue further HD as per nephro with close monitoring of volumes, renal parameters and lytes -per nephro recs abx as per ID- recently pancx 10/14 due to fever and leukocytosis 10/14 BCX NGTD UCX 10/14 + Providencia, MDR, SCX+ Proteus ESBL, Pseudomonas MDR CXR 10/12 stable leuk 10/17, started on meropenem 10/17 -> as per ID recs, CXR 10/17 bilateral pleural effusions demonstrated. Mild interstitial and airspace congestion unchanged. no fevers ECHO with pEF , moderate pulm HTN and moderate AR BP management with current regimen of BB, Cardizem and Hydralazine, remains in SR monitor HH with goal to keep Hgb >7, heme on board on EPO supportive care pain management wound care bowel regimen stable for dc from pulm standpoint dc plan in progress Note; time of this note does not reflect the actual time patient was seen. [facility] was down case discussed and evaluated by supervising physician Juve Martinez MD 10/22/19 1305: Subjective Allergies: Coded Allergies: No Known Allergies (Unverified , 10/10/17) Assessment/Plan Assessment/Plan Patient seen and examined with [employer]. Agree with above A&P as it reflects our joint deliberations. Yara Castro NP Oct 22, 2019 10:22 Juve Martinez MD Oct 22, 2019 13:05
--- NOTE | 2019-10-22 10:52 | Nephrology Progress Note ---
Assessment/Plan Problem List: (1) JAVIER (acute kidney injury) (2) Renal failure (ARF), acute on chronic (3) Dehydration (4) Electrolyte imbalance (5) Anemia (6) Respiratory failure, acute and chronic (7) COPD with exacerbation Assessment Patient is presented with sepsis and pneumonia and UTI Patient has acute renal failure, possible underlying chronic kidney failure Severe anemia Electrolyte imbalances: Hyponatremia, hypo-kalemia Chronic respiratory failure, COPD exacerbation Plan October 21: Patient's last dialysis was October 16. Patient has been responding to Zaroxolyn, with decent urine output, and serum creatinine being stable. At this time will abort dialysis plan and continue per current management. Blood pressure medication adjusted. October 20: Patient appears to be responding to Zaroxolyn. Will repeat 10 mg Zaroxolyn via GT today. Continue monitor renal parameters. Potassium supplements given. Dialysis as needed. October 19: Patient responded to Zaroxolyn. Urine output increased. Will try 10 mg Zaroxolyn again today. Check renal parameters tomorrow. Dialysis as needed. October 18: Last dialysis October 16. Serum creatinine rising. Oliguria persists. Continue to monitor renal parameters and dialysis as needed. October 17: It appears that the patient received dialysis last night and the dialysis nurse changed her mind about delaying to today. Today's labs reviewed. Electrolyte abnormalities corrected. Continue per consultants. October 16: Late note entry due to system problem at the [facility] [place] [facility] [place].Patient due for dialysis today. Dialysis nurse informed that due to few emergencies if she can be done tomorrow. No chemistry panel for today." We will order labs on dialysis tomorrow. October 15: Last dialysis October 13. Labs were reviewed. Urine output very low. Will dialyze and ultrafiltrate tomorrow. Per consultants. October 14: Dialyzed yesterday. Labs reviewed. Medication list reviewed. Continue per consultants. October 13: Patient seen on dialysis. Tolerating well. Will check labs tomorrow. October 12: Blood pressure stable. Labs reviewed. BUN rising. Remains oliguric. Dialysis tomorrow. October 11: Blood pressure is stable. Labs reviewed. Continue as is. Dialysis as needed October 10: Blood pressure medication adjusted. Will check lab tomorrow. Dialysis as needed. Urine output remains low. October 09: Lab reviewed. Remains oliguric. Will give trial of Zaroxolyn. Continue per consultants. Adjust blood pressure medication. Will add Zaroxolyn and increased dose of Cardizem and add clonidine patch for better BP control October 08: Labs reviewed. Patient oliguric. Blood pressure elevated, BP medication adjusted. Recheck lab tomorrow. Dialysis and ultrafiltration as needed. October 07: Labs reviewed. Patient was dialyzed yesterday. 3000 mL fluid was removed. Patient appears to need periodic (twice a week minimum) dialysis for ultrafiltration. Continue to monitor renal parameters. Continue per consultants. October 06: Labs reviewed. Discussed with pulmonary. Will attempt dialysis and ultrafiltration. Continue per consultants. October 05: Lab reviewed. Serum creatinine rising. Blood pressure stabilized. Will recheck lab tomorrow. Dialysis as needed. Will increase lisinopril to 10 mg twice a day. October 04: Lab reviewed. Blood pressure medication adjusted since the patient is hypotensive. Serum creatinine rising. Recheck labs tomorrow. Dialysis as needed. Discussed with RN. October 03: Lab reviewed. Zestril added to BP medication. 1 dose of Seroquel ordered for agitation. Continue to monitor renal parameters. Continue per consultants. October 02: Lab reviewed. Potassium supplement IV given. 3% saline 250 cc ordered. Responded well to Zaroxolyn yesterday. Will continue to monitor electrolytes and renal parameters. Will increase minoxidil to 2.5 mg every 6 hours. October 01: Labs reviewed. Potassium supplement given. Last dialysis September 29. Serum creatinine rising gradually. Urine output very low. Patient appears to continue to need dialysis at least twice a week. Blood pressure still running high I will switch the hydralazine to minoxidil. We will give 1 dose of Zaroxolyn 10 mg today. Will check renal parameters tomorrow. September 30: Patient dialyzed yesterday. 3 L removed. Labs reviewed. Potassium supplement given. Continue per consultants. It appears that the patient required dialysis 2-3 times a week. September 29: Lab reviewed. Chest x-ray result noted. Continues to have pulmonary congestion. Urine output low. Will attempt dialysis again today with ultrafiltration. September 28: Lab reviewed. ABG reviewed. Potassium supplement given. No dialysis at this point. Will eval patient status and renal parameters daily. September 27: Lab reviewed. Last dialysis September 25. Continue to monitor renal parameters. Hemodialysis as needed. September 26: Lab reviewed. Dialyzed yesterday. Potassium supplement given. Medication list reviewed. Will observe renal parameters and arrange for dialysis as needed. September 25: Lab reviewed. Currently on hemodialysis. Tolerating well. Stable from renal standpoint of view. Blood pressure medication adjusted by increasing hydralazine. September 24: Lab reviewed. ABG reviewed. Both lab and ABG much improved. Patient was dialyzed yesterday. We will attempt dialysis tomorrow again. Will adjust that blood pressure medication dosages. September 23: Lab reviewed. ABG reviewed. Patient acidotic. IV bicarb 1 dose is given. Patient has dialysis catheter. Will order dialysis for ultrafiltration and correction of acid-base. Discussed with ERASMO Mohr. September 22: Labs reviewed. Potassium high. Kayexalate and Reglan given. Will discuss with the consultants regarding initiation of dialysis. September 21: Patient is being sedated. Labs reviewed. Potassium supplement discontinued. GFR 20. Continue per current treatment plan. Dialysis and ultrafiltration is a consideration. September 20: Patient periodically agitated. Labs reviewed. Creatinine 2.4. Medication reviewed. Continue per consultants. Calculated creatinine clearance 21. May need isolated ultrafiltration on dialysis. Will discuss with PMD. Meanwhile hemoglobin is lower, defer transfusion to PMD. September 19: DC IV fluid. Zaroxolyn via GT tube. Potassium supplement. Attempt to diurese. Chest CT as bilateral pleural effusion. If diuresis unsuccessful, will consider dialysis and ultrafiltration. September 18: Potassium supplement IV given. Hemoglobin stable. Patient remains full code. Continue per consultants. Previously: Potassium supplement IV Slow IV hydration Epogen subcu Adjust blood pressure medication IV fluid, rate adjusted Norman catheter, intake and output Monitor renal parameters Avoid nephrotoxic's Antibiotics Per orders 2D echocardiogram Kidney ultrasound Subjective ROS Limited/Unobtainable: Yes Objective Objective Last 24 Hour Vital Signs Date Time Temp Pulse Resp B/P (MAP) Pulse Ox O2 Delivery O2 Flow Rate FiO2 10/22/19 08:53 52 147/72 10/22/19 08:53 147/72 10/22/19 08:00 Mechanical Ventilator Mechanical Ventilator Mechanical Ventilator 10/22/19 08:00 40 10/22/19 08:00 98.8 59 20 147/72 (97) 100 10/22/19 08:00 53 10/22/19 07:07 53 20 40 10/22/19 05:33 57 159/73 10/22/19 05:32 159/73 10/22/19 04:00 98.1 53 20 155/62 (93) 100 10/22/19 04:00 40 10/22/19 04:00 Mechanical Ventilator Mechanical Ventilator Mechanical Ventilator 10/22/19 03:56 68 10/22/19 03:10 58 20 40 10/22/19 01:05 56 10/22/19 00:00 98.3 58 20 144/62 (89) 100 10/22/19 00:00 Mechanical Ventilator Mechanical Ventilator Mechanical Ventilator 10/21/19 23:31 54 10/21/19 23:10 58 21 40 10/21/19 21:52 54 138/74 10/21/19 21:52 138/74 10/21/19 20:20 62 145/70 10/21/19 20:00 98.2 62 20 145/70 (95) 100 10/21/19 20:00 Mechanical Ventilator Mechanical Ventilator Mechanical Ventilator 10/21/19 20:00 40 10/21/19 19:33 57 21 40 10/21/19 19:12 57 10/21/19 17:14 146/73 10/21/19 17:00 57 20 40 10/21/19 16:00 40 10/21/19 16:00 67 10/21/19 16:00 Mechanical Ventilator Mechanical Ventilator Mechanical Ventilator 10/21/19 16:00 98.2 54 20 146/73 (97) 100 10/21/19 15:00 60 27 40 10/21/19 15:00 99 10/21/19 14:45 146/73 10/21/19 13:12 58 158/72 10/21/19 13:00 68 31 40 10/21/19 12:26 158/72 10/21/19 12:00 98.2 64 30 158/72 (100) 99 10/21/19 12:00 40 10/21/19 12:00 58 10/21/19 12:00 Mechanical Ventilator Mechanical Ventilator Mechanical Ventilator 10/21/19 11:23 59 27 40 Intake and Output 10/21/19 10/22/19 19:00 07:00 Intake Total 615 ml 765 ml Output Total 500 ml 650 ml Balance 115 ml 115 ml Intake Free Water 160 ml 230 ml IV Total 55 ml 55 ml Tube Feeding 400 ml 480 ml Output Urine Total 500 ml 650 ml # Bowel Movements 2 Laboratory Tests 10/22/19 03:10: White Blood Count 11.3H, Red Blood Count 3.55L, Hemoglobin 10.7L, Hematocrit 32.7L, Mean Corpuscular Volume 92, Mean Corpuscular Hemoglobin 30.0, Mean Corpuscular Hemoglobin Concent 32.6, Red Cell Distribution Width 14.4, Platelet Count 383, Mean Platelet Volume 4.9L, Neutrophils (%) (Auto) 74.3, Lymphocytes ( %) (Auto) 18.5L, Monocytes (%) (Auto) 5.1, Eosinophils (%) (Auto) 1.4, Basophils (%) (Auto) 0.7, Sodium Level 135L, Potassium Level 4.0, Chloride Level 99, Carbon Dioxide Level 29, Anion Gap 7, Blood Urea Nitrogen 69H, Creatinine 2.2H, Estimat Glomerular Filtration Rate 23.9, Glucose Level 100, Calcium Level 9.1, Phosphorus Level 3.7, Magnesium Level 3.0H, Total Bilirubin 0.4, Aspartate Amino Transf (AST/SGOT) 23, Alanine Aminotransferase (ALT/SGPT) 12, Alkaline Phosphatase 174H, Total Protein 6.8, Albumin 1.8L, Globulin 5.0, Albumin/Globulin Ratio 0.4L Height (Feet): 5 Height (Inches): 5.00 Weight (Pounds): 144 General Appearance: no apparent distress EENT: other - On ventilator Cardiovascular: bradycardia Respiratory/Chest: decreased breath sounds Abdomen: soft Objective No change Johnny Houston MD Oct 22, 2019 10:52
[2019-10-22 12:00] VITALS: BP 145/88
--- NOTE | 2019-10-22 12:29 | Surgery Progress Note ---
Surgery Progress Note Subjective Additional Comments no acute events comfortable stable more alert and responsive Objective Last 24 Hour Vital Signs Date Time Temp Pulse Resp B/P (MAP) Pulse Ox O2 Delivery O2 Flow Rate FiO2 10/22/19 12:04 98.8 10/22/19 12:00 Mechanical Ventilator Mechanical Ventilator Mechanical Ventilator 10/22/19 08:53 52 147/72 10/22/19 08:53 147/72 10/22/19 08:00 Mechanical Ventilator Mechanical Ventilator Mechanical Ventilator 10/22/19 08:00 40 10/22/19 08:00 98.8 59 20 147/72 (97) 100 10/22/19 08:00 53 10/22/19 07:07 53 20 40 10/22/19 05:33 57 159/73 10/22/19 05:32 159/73 10/22/19 04:00 98.1 53 20 155/62 (93) 100 10/22/19 04:00 40 10/22/19 04:00 Mechanical Ventilator Mechanical Ventilator Mechanical Ventilator 10/22/19 03:56 68 10/22/19 03:10 58 20 40 10/22/19 01:05 56 10/22/19 00:00 98.3 58 20 144/62 (89) 100 10/22/19 00:00 Mechanical Ventilator Mechanical Ventilator Mechanical Ventilator 10/21/19 23:31 54 10/21/19 23:10 58 21 40 10/21/19 21:52 54 138/74 10/21/19 21:52 138/74 10/21/19 20:20 62 145/70 10/21/19 20:00 98.2 62 20 145/70 (95) 100 10/21/19 20:00 Mechanical Ventilator Mechanical Ventilator Mechanical Ventilator 10/21/19 20:00 40 10/21/19 19:33 57 21 40 10/21/19 19:12 57 10/21/19 17:14 146/73 10/21/19 17:00 57 20 40 10/21/19 16:00 40 10/21/19 16:00 67 10/21/19 16:00 Mechanical Ventilator Mechanical Ventilator Mechanical Ventilator 10/21/19 16:00 98.2 54 20 146/73 (97) 100 10/21/19 15:00 60 27 40 10/21/19 15:00 99 10/21/19 14:45 146/73 10/21/19 13:12 58 158/72 10/21/19 13:00 68 31 40 I&O Intake and Output 10/21/19 10/22/19 19:00 07:00 Intake Total 615 ml 765 ml Output Total 500 ml 650 ml Balance 115 ml 115 ml Intake Free Water 160 ml 230 ml IV Total 55 ml 55 ml Tube Feeding 400 ml 480 ml Output Urine Total 500 ml 650 ml # Bowel Movements 2 Dressing: other Wound: other Cardiovascular: RSR Respiratory: decreased breath sounds Abdomen: soft, non-tender, present bowel sounds Extremities: no edema, no tenderness, no cyanosis Laboratory Tests Test 10/22/19 03:10 White Blood Count 11.3 K/UL (4.8-10.8) H Red Blood Count 3.55 M/UL (4.20-5.40) L Hemoglobin 10.7 G/DL (12.0-16.0) L Hematocrit 32.7 % (37.0-47.0) L Mean Corpuscular Volume 92 FL (80-99) Mean Corpuscular Hemoglobin 30.0 PG (27.0-31.0) Mean Corpuscular Hemoglobin Concent 32.6 G/DL (32.0-36.0) Red Cell Distribution Width 14.4 % (11.6-14.8) Platelet Count 383 K/UL (150-450) Mean Platelet Volume 4.9 FL (6.5-10.1) L Neutrophils (%) (Auto) 74.3 % (45.0-75.0) Lymphocytes (%) (Auto) 18.5 % (20.0-45.0) L Monocytes (%) (Auto) 5.1 % (1.0-10.0) Eosinophils (%) (Auto) 1.4 % (0.0-3.0) Basophils (%) (Auto) 0.7 % (0.0-2.0) Sodium Level 135 MMOL/L (136-145) L Potassium Level 4.0 MMOL/L (3.5-5.1) Chloride Level 99 MMOL/L (98-107) Carbon Dioxide Level 29 MMOL/L (21-32) Anion Gap 7 mmol/L (5-15) Blood Urea Nitrogen 69 mg/dL (7-18) H Creatinine 2.2 MG/DL (0.55-1.30) H Estimat Glomerular Filtration Rate 23.9 mL/min (>60) Glucose Level 100 MG/DL (74-106) Calcium Level 9.1 MG/DL (8.5-10.1) Phosphorus Level 3.7 MG/DL (2.5-4.9) Magnesium Level 3.0 MG/DL (1.8-2.4) H Total Bilirubin 0.4 MG/DL (0.2-1.0) Aspartate Amino Transf (AST/SGOT) 23 U/L (15-37) Alanine Aminotransferase (ALT/SGPT) 12 U/L (12-78) Alkaline Phosphatase 174 U/L (46-116) H Total Protein 6.8 G/DL (6.4-8.2) Albumin 1.8 G/DL (3.4-5.0) L Globulin 5.0 g/dL Albumin/Globulin Ratio 0.4 (1.0-2.7) L Plan Problems: (1) Anemia (2) Proteinuria (3) UTI (urinary tract infection) (4) ARF (acute renal failure) (5) ACS (acute coronary syndrome) (6) Respiratory failure, acute and chronic (7) HCAP (healthcare-associated pneumonia) (8) Abrasion of lip, initial encounter (9) COPD with exacerbation (10) Hypokalemia (11) Sepsis Assessment & Plan: Leukocytosis, anemia, abnormal labs. Renal insufficiency potentially dehydrated Abnormal LFTs alk phos elevated Urine noted significant bacteria likely UTI etiology Wound stable still requiring local care IV antibiotics per infectious disease Discussed with chief sales officer Dr. Berkowitz air mattress turn q2h nutritional tf will follow with recs thank you CT noted pending VQ scan - noted poor study low prob PE work respiratory increasing needs sedation weaning vent settings 80% peep 10 now comfortable Hd line in receiving HD plan for left thora 09/26 cont weaning vent as tolerated improving labs improved placement d/c planning (12) Chronic respiratory failure (13) Ascites (14) Bacteremia (15) Hypernatremia (16) Pleural effusion (17) Pacemaker (18) Aortic dissection, thoracic (19) Tracheostomy in place Assessment & Plan: trach stable no bleeding currently likely tongue etiology of mild oozing currently hemostatic without trauma (20) Feeding by G-tube Assessment & Plan: okay to resume tube feeds via g tube patent and functional dressings okay DAILY ESTIMATED NEEDS: Needs based on Pulmonary, wound 49kg 30-35 kcals/kg [id number] total kcals 1.25-2 g protein/kg 61-98 g total protein Fluid per MD NUTRITION DIAGNOSIS: * Swallowing difficulty R/T dysphagia, respiratory status as evidenced by vent dep via T-collar, GT Dep. (CURRENT TF: Nepro @45ml/hr x 24 hrs) ENTERAL NUTRITION RECOMMENDATIONS: Nepro @ 40ml/hr x 24 hrs to provide 960ml, 1728kcal, 78g prot, 698ml free water * Rec LOWER current rate to 40ml/hr for 24 hrs run. 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 Base of wound is granular with bone exposure at base of sacrococcygeal.(L)10.5cm x (W06.5cm x (D) 2.8cm , undermining 11-3 by 3.6cm @12 o'clock. small amt serosanguineous exudate noted . [place] epithelial along edges bordered by darker skin tone without erythema. Resolving Pressure injury L ischium. Base of wound is 95% pink epithelial ,5% noni at center base of wound. No exudate noted. Both heels are boggy with non-Blanching erythema. Tx.plan: Cleanse Sacral wound with Saline. Loosely pack with Hydrogel impregnated Kerlix. Apply Moisture Barrier Periwound. Cover with Optifoam drsg Daily and prn. Apply Moisture Barrier paste to L Ischium. Cover with Optifoam drsg. Changee very 3 days and prn. Apply Cavilon Skin Barrier to both heels. Cover each heel with Optifoam drsgs. Change every 7 days and prn. Reposition at least every 2hours or as tolerated. Off-load heels with pillow. APM/MAXWELL Mattress overlay. Sacral wound resolving. Wound is smaller in size with less depth and undermining (L)8.5cm x (W)5cm x (D)1.3cm, undermining clockwise 11-3 by 2.1cm @ 12o'clock. Base of wound is pink and moist, small area of bone exposure at base. Small amt. seropurulent exudate noted. No odor noted. Periwound without evidence of further skin breakdown noted. Wound Tx. are effective and continued as ordered. Al wound prevention protocols continued as care-planned. Tx.Plan:Cleanse sacral wound with Saline. Loosely pack with Hydrogel impregnated kerlix. Apply Moisture Barrier Paste periwound. Cover with Optifoam drsg Daily and prn. Apply Cavilon Skin Barrier to both heels and malleoli. Cover eachsite with Optifoam drsgs. Change every 7 days and prn. Reposition at least every 2hours or as tolerated. Off-load heels with pillow. APM/Maxwell Mattress overlay. Lane Saavedra Oct 22, 2019 12:29
--- NOTE | 2019-10-22 13:30 | Infectious Diseases Prog Note ---
Assessment/Plan 49yo F with: Fever, recurrent; SP Leukocytosis, recurrent -10/14 Bcx NTD Acute hypoxic resp failure: Now on vent, worsening, FiO2 100% > 80% 09/27 > 60% >40% 10/08 >30% 10/09 >40% 10/14 Pneumonia, COVID19 neg x3 - MDR PsA pneumonia,s pr x 10/14 CXR: Increased right pleural fluid and parenchymal disease, since previous exam of 10/09/2019. Stable pleural and parenchymal disease on the left sp cx ESBL P. mirabilis, MDR P.a. ( S only to Gent) 10/07 CXR: Bilateral infiltrates versus edema, left greater than right pleural effusions are again demonstrated, unchanged. There is slightly better inspiration currently. 09/29 CXR: Bilateral edema versus infiltrates appears slightly worse than on the prior study. There is probably some pleural fluid on the left. 09/26 S/P thoracentesis, 900cc removed, only 67 WBC in fluid analysis, unlikely empyema 09/26 CXR: Worsening R perihilar opacity 09/26 BCx Neg 09/24 CXR: Previously demonstrated right lateral basilar lucency is no longer evident, was presumably a skin fold artifact. Bilateral infiltrates and left pleural effusion are probably unchanged allowing for slight differences in technique. 09/22 Resp cx + MDR PsA (S-gent; I-colistin; R-levofloxacin, Zosyn, angelo) 09/22 BCx NTD 09/22 CXR: worsening BL pna 09/22 UA w/ persistent pyuria, now on HD, UCx +VRE, most likely colonizer as improving wo tx for this 09/19 V/Q scan, low probability of PE 09/18 Rapid COVID PCR neg 09/18 CT chest: Markedly suboptimal examination due to lack of IV contrast material. Bilateral pleural effusions, right greater than left, with bilateral lower lobe consolidation or volume loss. Ground glass densities in the upper lobes bilaterally. This is not specific. Tracheostomy. Increased superior mediastinal density. Stability of adenopathy cannot be excluded. Atherosclerotic change. Gastrostomy. Ascites. Left renal stent with left hydronephrosis and renal atrophy. 09/17 Chest US: Trace right and small left pleural effusions. No safe window identified for bedside thoracentesis. Note that the majority of the left pleural effusion is subpulmonic. 09/16 CXR: Worsening of right lung infiltrates and right effusion. V. duplex: NO DVT D-dimer elevated 09/15 Rapid COVID PCR neg 09/15 Sp cx ESBL P. mirablis 09/14 CXR: Bilateral airspace opacities, preferentially involving the right lung, consistent with multifocal infiltrate. Trace bilateral pleural effusions. No pneumothorax. Rapid COVID PCR neg Urine legionella neg 09/16 GPC bacteremia, real vs contaminant; does have hx of infected PPM- 09/14 Bcx 2/ S. epidermis; 09/15, , Bcx Neg 2d echo: no vegetations seen UTI, recurrent 09/14 u/a wbc tnct, nit neg, leuk +3; ucx >100k MDR P. stuarti (S Ceftriaxone, Meropenem) 09/22 UA w/ ongoing pyuria, unchanged 10/07 u/a wbc tnct, nit neg, leuk ; ucx >100k VRE 10/14 u/a wbc tnct; ucx >100k ESBL P. stuarti (S ertapenem, aztreonam) Unstageable sacral ulceration JAVIER on CKD --> now on HD Renal US: Limited exam due to abdominal ascites and shadowing from bowel gas. CT recommended for more sensitive evaluation. Moderate right hydronephrosis. Increased renal parenchymal echogenicity suggesting intrinsic/ medical renal disease. Question indwelling left ureteral stent versus artifact. Bladder not visualized. 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 epi-11/2018, sp > 6weeks IV vancomycin 11/27 SP ABBIE: no evidence for vegetation on any of the valves 11/26/18 SP PPM removal: OR findings:The fibrous capsule enclosing the generator was then opened and there was a [id number] amount of yellowish fluid drainage. The generator was then removed.Atrial and ventricular leads were detached. The necrotic tissue of the pocket was then removed and the pocket was flushed with an antibiotic solution. Capsule, wound tissue and lead tip cx: Neg 2d echo: no vegetation seen US chest: 4.6 x 3.4 x 0.9 cm hypoechoic/anechoic area overlying left chest pacemaker power pack. This could represent either a discrete fluid collection or a focal area of very edematous tissue. Infected fluid pocket also possible. 11/18 Bcx 3/4 S. epi; 11/20 Bcx neg; 11/24 Bcx Neg; 11/27 Bcx Neg Hx of PNA 11/2019? sp cx PsA (arnett S), ABC (I Ceftriaxone; otherwise negative) Sp cx MRSA, ABC (I Ceftriaxone; otherwise S) PMH: Afib HTN Dysphagia sp GT Aortic dissection s/p repair 2017, S/p PPM Parkinson's Disease Schizophrenia Anxiety COPD Chronic resp failure s/p trach Hx of tracheal bleeding [place] resident ([facility]) Plan: Continue Meropenem #4/7 for UTI and PNA given recurrent leukocytosis ( Note not treating MDR P.a. as it is likely a colonizer and patient stable without CXR evidence of PNA and leukocytosis resolved on Meropenem) -if wbc continues to rise, will switch to Gentamycin 10/14 SP Daptomycin #5 10/03 SP Zerbaxa #6, gent #7 for MDR PsA pna 09/29 SP vanco #15 for S.epi in BCx 09/27 SP angelo #13 09/16 SP Cefepime #3, Levaquin #3 Monitor CBC/CMP, temperatures trach/ peg care Aspiration precautions D/w RN Thank you for this consultation. Will continue to follow along with you. Subjective Allergies: Coded Allergies: No Known Allergies (Unverified , 10/10/17) afebrile leukocytosis recurrent; now 17 Bcx NTD Objective Last 24 Hour Vital Signs Date Time Temp Pulse Resp B/P (MAP) Pulse Ox O2 Delivery O2 Flow Rate FiO2 10/22/19 13:07 145/88 10/22/19 13:07 57 145/88 10/22/19 12:04 98.8 10/22/19 12:00 40 10/22/19 12:00 Mechanical Ventilator Mechanical Ventilator Mechanical Ventilator 10/22/19 12:00 99.2 54 20 145/88 (107) 97 10/22/19 12:00 57 10/22/19 08:53 52 147/72 10/22/19 08:53 147/72 10/22/19 08:00 Mechanical Ventilator Mechanical Ventilator Mechanical Ventilator 10/22/19 08:00 40 10/22/19 08:00 98.8 59 20 147/72 (97) 100 10/22/19 08:00 53 10/22/19 07:07 53 20 40 10/22/19 05:33 57 159/73 10/22/19 05:32 159/73 10/22/19 04:00 98.1 53 20 155/62 (93) 100 10/22/19 04:00 40 10/22/19 04:00 Mechanical Ventilator Mechanical Ventilator Mechanical Ventilator 10/22/19 03:56 68 10/22/19 03:10 58 20 40 10/22/19 01:05 56 10/22/19 00:00 98.3 58 20 144/62 (89) 100 10/22/19 00:00 Mechanical Ventilator Mechanical Ventilator Mechanical Ventilator 10/21/19 23:31 54 10/21/19 23:10 58 21 40 10/21/19 21:52 54 138/74 10/21/19 21:52 138/74 10/21/19 20:20 62 145/70 10/21/19 20:00 98.2 62 20 145/70 (95) 100 10/21/19 20:00 Mechanical Ventilator Mechanical Ventilator Mechanical Ventilator 10/21/19 20:00 40 10/21/19 19:33 57 21 40 10/21/19 19:12 57 10/21/19 17:14 146/73 10/21/19 17:00 57 20 40 10/21/19 16:00 40 10/21/19 16:00 67 10/21/19 16:00 Mechanical Ventilator Mechanical Ventilator Mechanical Ventilator 10/21/19 16:00 98.2 54 20 146/73 (97) 100 10/21/19 15:00 60 27 40 10/21/19 15:00 99 10/21/19 14:45 146/73 Height (Feet): 5 Height (Inches): 5.00 Weight (Pounds): 144 Gen: no distress Cardiovascular: RrR, S1 S2 normal Respiratory: decreased breath sounds Abdomen: soft, non-tender, present bowel sounds Extremities: no edema, no tenderness Laboratory Tests Test 10/22/19 03:10 White Blood Count 11.3 K/UL (4.8-10.8) H Red Blood Count 3.55 M/UL (4.20-5.40) L Hemoglobin 10.7 G/DL (12.0-16.0) L Hematocrit 32.7 % (37.0-47.0) L Mean Corpuscular Volume 92 FL (80-99) Mean Corpuscular Hemoglobin 30.0 PG (27.0-31.0) Mean Corpuscular Hemoglobin Concent 32.6 G/DL (32.0-36.0) Red Cell Distribution Width 14.4 % (11.6-14.8) Platelet Count 383 K/UL (150-450) Mean Platelet Volume 4.9 FL (6.5-10.1) L Neutrophils (%) (Auto) 74.3 % (45.0-75.0) Lymphocytes (%) (Auto) 18.5 % (20.0-45.0) L Monocytes (%) (Auto) 5.1 % (1.0-10.0) Eosinophils (%) (Auto) 1.4 % (0.0-3.0) Basophils (%) (Auto) 0.7 % (0.0-2.0) Sodium Level 135 MMOL/L (136-145) L Potassium Level 4.0 MMOL/L (3.5-5.1) Chloride Level 99 MMOL/L (98-107) Carbon Dioxide Level 29 MMOL/L (21-32) Anion Gap 7 mmol/L (5-15) Blood Urea Nitrogen 69 mg/dL (7-18) H Creatinine 2.2 MG/DL (0.55-1.30) H Estimat Glomerular Filtration Rate 23.9 mL/min (>60) Glucose Level 100 MG/DL (74-106) Calcium Level 9.1 MG/DL (8.5-10.1) Phosphorus Level 3.7 MG/DL (2.5-4.9) Magnesium Level 3.0 MG/DL (1.8-2.4) H Total Bilirubin 0.4 MG/DL (0.2-1.0) Aspartate Amino Transf (AST/SGOT) 23 U/L (15-37) Alanine Aminotransferase (ALT/SGPT) 12 U/L (12-78) Alkaline Phosphatase 174 U/L (46-116) H Total Protein 6.8 G/DL (6.4-8.2) Albumin 1.8 G/DL (3.4-5.0) L Globulin 5.0 g/dL Albumin/Globulin Ratio 0.4 (1.0-2.7) L Current Medications Medications (Trade) Dose Ordered Sig/Penny Route PRN Reason Start Time Stop Time Status Last Admin Dose Admin Acetaminophen (Tylenol) 325 mg Q4H PRN GT Mild Pain (Pain Scale 1-3) 10/17/19 18:45 11/16/19 18:44 10/22/19 11:34 Acetaminophen (Tylenol) 325 mg Q6H PRN GT Temp >100.5 10/11/19 04:45 10/23/19 10:44 10/22/19 05:33 Ascorbic Acid (Vitamin C) 500 mg DAILY ORAL 10/11/19 09:00 11/05/19 08:59 10/22/19 08:53 Chlorhexidine Gluconate (Ling-Hex 2%) 1 applic DAILY@2000 TOPIC 10/11/19 20:00 12/22/19 19:59 10/21/19 20:20 Clonidine HCl (Catapres TTS-3) 1 patch QWEEK TDERMAL 10/14/19 12:00 01/12/20 11:59 10/21/19 12:26 Dextrose (Dextrose 50%) 25 ml Q30M PRN IV Hypoglycemia 10/11/19 04:30 01/03/20 18:29 Dextrose (Dextrose 50%) 50 ml Q30M PRN IV Hypoglycemia 10/11/19 04:30 01/03/20 18:29 Diltiazem HCl (Cardizem Tab) 90 mg Q8HR GT 10/16/19 14:00 11/09/19 11:59 10/19/19 13:16 Docusate Sodium (Colace) 100 mg Q8HR GT 10/14/19 14:01 11/13/19 14:00 10/21/19 21:43 Epoetin Gelacio (Epoetin Gelacio(ESRD on dialysis)) 10,000 unit MON-MON-MON SUBQ 10/14/19 21:00 01/12/20 20:59 10/21/19 21:44 Haloperidol Lactate (Haldol) 5 mg Q6H PRN IM Agitation 10/11/19 05:00 11/22/19 10:59 10/20/19 00:06 Heparin Sodium (Porcine) (Heparin 5000 units/ml) 5,000 units EVERY 12 HOURS SUBQ 10/11/19 09:00 10/30/19 08:59 10/22/19 08:56 Insulin Aspart (NovoLOG) Q6HR SUBQ 10/11/19 06:00 01/03/20 20:59 Lansoprazole (Prevacid) 30 mg Q12HR GT 10/11/19 09:00 10/27/19 20:59 10/22/19 08:52 Lisinopril (PriniviL) 20 mg BID GT 10/11/19 09:00 11/08/19 17:59 10/22/19 08:53 Meropenem 500 mg/ Sodium Chloride 55 ml @ 110 mls/hr Q12H IVPB 10/20/19 01:00 10/25/19 00:59 10/22/19 13:06 Metoclopramide HCl (Reglan) 5 mg EVERY 6 HOURS GT 10/11/19 06:00 11/08/19 11:59 10/22/19 11:33 Metolazone (Zaroxolyn) 5 mg DAILY GT 10/23/19 09:00 11/22/19 08:59 Minoxidil (Loniten) 5 mg Q8HR ORAL 10/22/19 14:00 01/08/20 13:59 10/22/19 13:07 Morphine Sulfate (Morphine Sulfate) 2 mg Q6H PRN IVP For Pain 10/16/19 09:45 10/23/19 09:44 10/19/19 14:23 Polyethylene Glycol (Miralax) 17 gm BEDTIME ORAL 10/11/19 21:00 10/31/19 20:59 10/21/19 20:20 Potassium Chloride (K-Dur) 40 meq TWICE A DAY GT 10/21/19 11:15 01/19/20 11:14 10/22/19 08:53 Risperidone (RisperDAL) 2 mg BEDTIME ORAL 10/11/19 21:00 11/19/19 20:59 10/21/19 20:20 Sorbitol (sorbitoL) 30 ml EVERY 6 HOURS PRN GT Constipation 10/11/19 06:00 10/29/19 17:59 Vitamin B Complex/ Vit C/Folic Acid (Nephrovite) 1 tab DAILY ORAL 10/11/19 09:00 11/05/19 08:59 10/22/19 08:53 Doeren Nino M.D. Oct 22, 2019 13:30
[2019-10-22] MEDS ORDERED: Gentamicin Rx monitoring MISC PRN (13:45)
[2019-10-22] MEDS ORDERED: GENTAMICIN 120 MG/100 ML IVPB ONE (15:00)
[2019-10-22] MEDS ORDERED: NS IVPB ONE (15:00)
[2019-10-22] MEDS ORDERED: GENTAMICIN IV (15:05)
[2019-10-22 16:00] VITALS: BP 148/64
--- NOTE | 2019-10-22 19:48 | General Progress Note ---
Assessment/Plan Status: stable, other - Mood has improved he is able to smile there is no continuous tearing overall she looks better today energy looking the last several days continue with the same management Status Narrative Patient is awake alert afebrile hemodynamically stable. Again she request to be discharged as soon as possible. The supervisor litharge determines the patient will not require recording hemodialysis which allowed the patient to be discharged as soon as facility will be found Patient can return now back to [facility] unit will have dialysis catheter In the next few days where it will be absolutely sure the patient did not require the catheter will be removed LUCAS DONG MD Subjective Constitutional: Reports: no symptoms HEENT: Reports: no symptoms Cardiovascular: Reports: no symptoms Respiratory: Reports: no symptoms Gastrointestinal/Abdominal: Reports: no symptoms Genitourinary: Reports: no symptoms - Patient urine volume remains sufficiently so she can remain independent with dialysis Neurologic/Psychiatric: Reports: no symptoms, anxiety, depressed, other - Easily tearful Endocrine: Reports: no symptoms Allergies: Coded Allergies: No Known Allergies (Unverified , 10/10/17) Objective Last 24 Hour Vital Signs Date Time Temp Pulse Resp B/P (MAP) Pulse Ox O2 Delivery O2 Flow Rate FiO2 10/22/19 19:41 71 22 40 10/22/19 17:13 148/64 10/22/19 16:00 Mechanical Ventilator Mechanical Ventilator Mechanical Ventilator 10/22/19 16:00 40 10/22/19 16:00 98.2 51 21 148/64 (92) 98 10/22/19 15:52 52 10/22/19 14:57 78 15 40 10/22/19 13:07 145/88 10/22/19 13:07 57 145/88 10/22/19 12:04 98.8 10/22/19 12:00 40 10/22/19 12:00 Mechanical Ventilator Mechanical Ventilator Mechanical Ventilator 10/22/19 12:00 99.2 54 20 145/88 (107) 97 10/22/19 12:00 57 10/22/19 10:56 61 21 40 10/22/19 08:53 52 147/72 10/22/19 08:53 147/72 10/22/19 08:00 Mechanical Ventilator Mechanical Ventilator Mechanical Ventilator 10/22/19 08:00 40 10/22/19 08:00 98.8 59 20 147/72 (97) 100 10/22/19 08:00 53 10/22/19 07:07 53 20 40 10/22/19 05:33 57 159/73 10/22/19 05:32 159/73 10/22/19 04:00 98.1 53 20 155/62 (93) 100 10/22/19 04:00 40 10/22/19 04:00 Mechanical Ventilator Mechanical Ventilator Mechanical Ventilator 10/22/19 03:56 68 10/22/19 03:10 58 20 40 10/22/19 01:05 56 10/22/19 00:00 98.3 58 20 144/62 (89) 100 10/22/19 00:00 Mechanical Ventilator Mechanical Ventilator Mechanical Ventilator 10/21/19 23:31 54 10/21/19 23:10 58 21 40 10/21/19 21:52 54 138/74 10/21/19 21:52 138/74 10/21/19 20:20 62 145/70 10/21/19 20:00 98.2 62 20 145/70 (95) 100 10/21/19 20:00 Mechanical Ventilator Mechanical Ventilator Mechanical Ventilator 10/21/19 20:00 40 Intake and Output 10/21/19 10/22/19 19:00 07:00 Intake Total 615 ml 765 ml Output Total 500 ml 650 ml Balance 115 ml 115 ml Intake Free Water 160 ml 230 ml IV Total 55 ml 55 ml Tube Feeding 400 ml 480 ml Output Urine Total 500 ml 650 ml # Bowel Movements 2 Laboratory Tests 10/22/19 03:10: White Blood Count 11.3H, Red Blood Count 3.55L, Hemoglobin 10.7L, Hematocrit 32.7L, Mean Corpuscular Volume 92, Mean Corpuscular Hemoglobin 30.0, Mean Corpuscular Hemoglobin Concent 32.6, Red Cell Distribution Width 14.4, Platelet Count 383, Mean Platelet Volume 4.9L, Neutrophils (%) (Auto) 74.3, Lymphocytes ( %) (Auto) 18.5L, Monocytes (%) (Auto) 5.1, Eosinophils (%) (Auto) 1.4, Basophils (%) (Auto) 0.7, Sodium Level 135L, Potassium Level 4.0, Chloride Level 99, Carbon Dioxide Level 29, Anion Gap 7, Blood Urea Nitrogen 69H, Creatinine 2.2H, Estimat Glomerular Filtration Rate 23.9, Glucose Level 100, Calcium Level 9.1, Phosphorus Level 3.7, Magnesium Level 3.0H, Total Bilirubin 0.4, Aspartate Amino Transf (AST/SGOT) 23, Alanine Aminotransferase (ALT/SGPT) 12, Alkaline Phosphatase 174H, Total Protein 6.8, Albumin 1.8L, Globulin 5.0, Albumin/Globulin Ratio 0.4L Height (Feet): 5 Height (Inches): 5.00 Weight (Pounds): 144 General Appearance: alert, mild distress, other - Again tearful because she was not discharged EENT: normal ENT inspection Neck: supple Cardiovascular: normal rate, regular rhythm, no gallop/murmur, no JVD Respiratory/Chest: no respiratory distress Abdomen: normal bowel sounds, non tender, soft, no organomegaly, no mass Extremities: non-tender, other - Diffuse muscle wasting of lower extremity Neurologic: no motor/sensory deficits, alert, oriented x 3, responsive Lucas Dong MD Oct 22, 2019 19:48
[2019-10-22 20:00] VITALS: BP 154/68
[2019-10-22] MEDS: Dyna-Hex 2% Top Sol 2oz TOPIC SCH (20:38)
[2019-10-22] MEDS: Miralax 17gm pkt ORAL SCH (20:39)
[2019-10-23] VITALS: BP 147/63
[2019-10-23 04:00] VITALS: BP 141/66
[2019-10-23] MEDS: Minoxidil 2.5mg tab ORAL SCH ×3 (05:25→21:11)
[2019-10-23] MEDS: Docusate 100mg/10ml Liq GT SCH ×3 (05:25→21:12)
[2019-10-23] MEDS: Metoclopramide 10mg/10ml Liq GT SCH ×4 (05:25→23:27)
[2019-10-23] MEDS: dilTIAZem HCl 90mg tab GT SCH ×3 (05:26→21:12)
[2019-10-23] MEDS: NovoLOG Insulin Flexpen SUBQ SCH ×4 (05:26→23:27)
--- NOTE | 2019-10-23 07:08 | Hematology/Onc Progress Note ---
Assessment/Plan Assessment/Plan Assessment and Recs # Leukocytosis, now with gram positive bacteremias well as pna noted --> historically --> PPM site (pocket) infection (redness and pain, bacteremia) and likely pocket abscess - no vegetation seen on ABBIE --> is s'p pm removal and also pocket infection is better --> per cards recs in re to tach/davis --> wbc 15-->19-->17-->15-->13->12-->13-->12>13-->18-->9-->7-->16-->17->9.4-->11 --> ABX cefepime/levaquin--> vanc/angelo-> daptomycin-->Angelo --> ID recs are noted # Anemia of chronic disease due to underlying chronic medical issues, multifactorial --> Anemia workup has been reviewed, cw acd --> No evidence of hemolysis is noted, peripheral smear has been reviewed. --> Hgb goal >7. Transfuse prn. --> Epogen started --> Medications have been reviewed --> low threshold for gi evaluation in case has occult + --> hgb 7.1-->7.8-->8.9->9.2-->8.5-->9.7-->10-->8.8-->9.6-->8.7->8.6-->7.2->8.7- >9.1-->9.2-->9-->8.7-->9.3-->9.8-->10->10.3-->10.8->10.5->10.7 --> 1 unit prbc 09/27 # Thrombocytois is likely reactive process, is s/p infection --> plt trend 610k-->706k-->354 --> p smear reviewed # Acute hypoxic respiratory failure s/p intubation 11/23- ?ARDS --> on vent/trach # Gram positive bacteremia- real bacteremia- 2ry to above and probable PNA --> per id care # JAVIER initially >2 --> on ivfs # Elevated d-dimer --> venous duplex and v/q scan neg --> negative results # Dysphagia s/p peg # Thoracic aortic dissection s/p repair early 2017 # Psychiatric history on ativan/haldol # [place] resident # Dvt ppx --> heparin sq The timing of this note does not necessarily reflect the time of the patient was seen. Greatly appreciate consultation. Subjective HEENT: Denies: no symptoms, eye pain, blurred vision, tearing, double vision, ear pain, ear discharge, nose pain, nose congestion, throat pain, throat swelling, mouth pain, mouth swelling, other Cardiovascular: Denies: no symptoms, chest pain, edema, irregular heart rate, lightheadedness, palpitations, syncope, other Respiratory: Denies: no symptoms, cough, shortness of breath, SOB with excertion, SOB at rest, sputum, wheezing, other Gastrointestinal/Abdominal: Denies: no symptoms, abdomen distended, abdominal pain, black stools, tarry stools, blood in stool, constipated, diarrhea, difficulty swallowing, nausea, poor appetite, poor fluid intake, rectal bleeding , vomiting, other Genitourinary: Denies: no symptoms, burning, discharge, frequency, flank pain, hematuria, incontinence, pain, urgency, other Neurologic/Psychiatric: Denies: no symptoms, anxiety, depressed, emotional problems, headache, numbness, paresthesia, pre-existing deficit, seizure, tingling, tremors, weakness, other Endocrine: Denies: no symptoms, excessive sweating, flushing, intolerance to cold, intolerance to heat, increased hunger, increased thirst, increased urine, unexplained weight gain, unexplained weight loss, other Hematologic/Lymphatic: Denies: no symptoms, anemia, easy bleeding, easy bruising, adenopathy, other Allergies: Coded Allergies: No Known Allergies (Unverified , 10/10/17) Subjective 09/16 on vent now, consulted in am pulm, on vent setting, labs noted, hep sq 09/17 meds noted, cbc noted, labs noted, no bleeding 09/18 is to undergo potential v/q scan given abg, labs noted, resless, on ativan, to get haldol today, roman rn 09/19 remains agitated, covering, with sacral wound seeping, likely cause of anemia, roman rn 09/26 restless, remains agitated, gtube ripped, eval with rn, and vosoghi consulted 09/27 remains on vent, agitated, seen by gi, hgb low, roman George to transfuse 1 unit prbc 09/28 meds noted, no bleeding, on vent, s/p blood tranfusion, cbc pending, roman rn 09/29 remains in the icu, roman rn in the am, agitated, on versed, fentanyl, restraints 09/30 in icu, trach to vent, on gtube feeds, fentanyl, agitated 10/01 in icu, roman Ayoub rn, no bleeding, sleeping, labs noted, hgb >9 10/02 sedated in icu, is on vent, roman rn, more alert and more conversive with face grimaces 10/03 labs have been reviewed, no bleeding, icu, meds reviewed, on fentanyl and versed, to consult psych 10/05 remains on fentanyl, also with restraints, no bleeding, cbc ordered 10/06 remains obtunded, though reactive when proded, labs pending from am 10/07 hypertensive, asleep, no bleeding, roman rn, no major night sweats\ 10/08 formula leaking from gtube site, no bleeding, with some minor residual 10/09 remains on gtube feeds, on lactulose, no major changes, confused but nods 10/10 labs reviewed, lactulose discontinued as having diarrhea, no bleeding 10/12 meds reviewed, no bleeding, heparin given, roman Starr rn in am, comfortable 10/13 labs are noted, no bleeding, cbc is ordered for today, somewhat agitated 10/14 has been complaining of pain and frowning, no bleeding, hgb reviewed 10/15 hgb 10.4, no bleeding, stool is hard, difficult to collect for c.diff 10/16 restless, agitated overnight, getting haldol prn, roman rn at bedside 10/17 labs are noted, no bleeding, meds reviewed, wbc 17k, on abx 10/19 labs are noted, no bleeding, meds noted, no major changes, with v/t, peg 10/20 on vent, with gtube and raymond, no bleeding, labs are noted 10/21 is trach to vent, with gtube in place, left ij hd in place, no bleeding 10/22 labs are noted, have been revierwed, no bleeding or chills, meds noted Objective Objective Current Medications Medications (Trade) Dose Ordered Sig/Penny Route PRN Reason Start Time Stop Time Status Last Admin Dose Admin Acetaminophen (Tylenol) 325 mg Q4H PRN GT Mild Pain (Pain Scale 1-3) 10/17/19 18:45 11/16/19 18:44 10/22/19 11:34 Acetaminophen (Tylenol) 325 mg Q6H PRN GT Temp >100.5 10/11/19 04:45 10/23/19 10:44 10/22/19 05:33 Ascorbic Acid (Vitamin C) 500 mg DAILY ORAL 10/11/19 09:00 11/05/19 08:59 10/22/19 08:53 Chlorhexidine Gluconate (Ling-Hex 2%) 1 applic DAILY@1999 TOPIC 10/11/19 20:00 12/22/19 19:59 10/22/19 20:38 Clonidine HCl (Catapres TTS-3) 1 patch QWEEK TDERMAL 10/14/19 12:00 01/12/20 11:59 10/21/19 12:26 Dextrose (Dextrose 50%) 25 ml Q30M PRN IV Hypoglycemia 10/11/19 04:30 01/03/20 18:29 Dextrose (Dextrose 50%) 50 ml Q30M PRN IV Hypoglycemia 10/11/19 04:30 01/03/20 18:29 Diltiazem HCl (Cardizem Tab) 90 mg Q8HR GT 10/16/19 14:00 11/09/19 11:59 10/19/19 13:16 Docusate Sodium (Colace) 100 mg Q8HR GT 10/14/19 14:01 11/13/19 14:00 10/21/19 21:43 Epoetin Gelacio (Epoetin Gelacio(ESRD on dialysis)) 10,000 unit MON-MON-MON SUBQ 10/14/19 21:00 01/12/20 20:59 10/21/19 21:44 Gentamicin Protocol (Gentamicin pharmacy to dose) 1 ea DAILY PRN MISC Per rx protocol 10/22/19 13:45 11/21/19 13:44 Haloperidol Lactate (Haldol) 5 mg Q6H PRN IM Agitation 10/11/19 05:00 11/22/19 10:59 10/20/19 00:06 Heparin Sodium (Porcine) (Heparin 5000 units/ml) 5,000 units EVERY 12 HOURS SUBQ 10/11/19 09:00 10/30/19 08:59 10/22/19 20:39 Insulin Aspart (NovoLOG) Q6HR SUBQ 10/11/19 06:00 01/03/20 20:59 Lansoprazole (Prevacid) 30 mg Q12HR GT 10/11/19 09:00 10/27/19 20:59 10/22/19 20:38 Lisinopril (PriniviL) 20 mg BID GT 10/11/19 09:00 11/08/19 17:59 10/22/19 17:13 Metoclopramide HCl (Reglan) 5 mg EVERY 6 HOURS GT 10/11/19 06:00 11/08/19 11:59 10/23/19 05:25 Metolazone (Zaroxolyn) 5 mg DAILY GT 10/23/19 09:00 11/22/19 08:59 Minoxidil (Loniten) 5 mg Q8HR ORAL 10/22/19 14:00 01/08/20 13:59 10/23/19 05:25 Morphine Sulfate (Morphine Sulfate) 2 mg Q6H PRN IVP For Pain 10/16/19 09:45 10/23/19 09:44 10/19/19 14:23 Polyethylene Glycol (Miralax) 17 gm BEDTIME ORAL 10/11/19 21:00 10/31/19 20:59 10/21/19 20:20 Potassium Chloride (K-Dur) 40 meq TWICE A DAY GT 10/21/19 11:15 01/19/20 11:14 10/22/19 17:13 Risperidone (RisperDAL) 2 mg BEDTIME ORAL 10/11/19 21:00 11/19/19 20:59 10/22/19 20:38 Sorbitol (sorbitoL) 30 ml EVERY 6 HOURS PRN GT Constipation 10/11/19 06:00 10/29/19 17:59 Vitamin B Complex/ Vit C/Folic Acid (Nephrovite) 1 tab DAILY ORAL 10/11/19 09:00 11/05/19 08:59 10/22/19 08:53 Last 24 Hour Vital Signs Date Time Temp Pulse Resp B/P (MAP) Pulse Ox O2 Delivery O2 Flow Rate FiO2 9/9/20 05:26 57 141/66 10/23/19 05:25 141/66 10/23/19 04:00 40 10/23/19 04:00 98.5 59 20 141/66 (91) 97 10/23/19 04:00 Mechanical Ventilator Mechanical Ventilator Mechanical Ventilator 10/23/19 04:00 66 10/23/19 02:50 60 20 40 10/23/19 00:00 98.1 64 18 147/63 (91) 96 10/23/19 00:00 61 10/23/19 00:00 Mechanical Ventilator Mechanical Ventilator Mechanical Ventilator 10/22/19 23:04 59 20 40 10/22/19 22:37 147/63 10/22/19 22:00 54 147/63 10/22/19 20:00 62 10/22/19 20:00 Mechanical Ventilator Mechanical Ventilator Mechanical Ventilator 10/22/19 20:00 40 10/22/19 20:00 98.2 62 20 154/68 (96) 98 10/22/19 19:41 71 22 40 10/22/19 17:13 148/64 10/22/19 16:00 Mechanical Ventilator Mechanical Ventilator Mechanical Ventilator 10/22/19 16:00 40 10/22/19 16:00 98.2 51 21 148/64 (92) 98 10/22/19 15:52 52 10/22/19 14:57 78 15 40 10/22/19 13:07 145/88 10/22/19 13:07 57 145/88 10/22/19 12:04 98.8 10/22/19 12:00 40 10/22/19 12:00 Mechanical Ventilator Mechanical Ventilator Mechanical Ventilator 10/22/19 12:00 99.2 54 20 145/88 (107) 97 10/22/19 12:00 57 10/22/19 10:56 61 21 40 10/22/19 08:53 52 147/72 10/22/19 08:53 147/72 10/22/19 08:00 Mechanical Ventilator Mechanical Ventilator Mechanical Ventilator 10/22/19 08:00 40 10/22/19 08:00 98.8 59 20 147/72 (97) 100 10/22/19 08:00 53 10/22/19 07:07 53 20 40 10/22/19 05:33 57 159/73 10/22/19 05:32 159/73 10/22/19 04:00 98.1 53 20 155/62 (93) 100 10/22/19 04:00 40 10/22/19 04:00 Mechanical Ventilator Mechanical Ventilator Mechanical Ventilator 10/22/19 03:56 68 10/22/19 03:10 58 20 40 10/22/19 01:05 56 10/22/19 00:00 98.3 58 20 144/62 (89) 100 10/22/19 00:00 Mechanical Ventilator Mechanical Ventilator Mechanical Ventilator 10/21/19 23:31 54 10/21/19 23:10 58 21 40 10/21/19 21:52 54 138/74 10/21/19 21:52 138/74 10/21/19 20:20 62 145/70 10/21/19 20:00 98.2 62 20 145/70 (95) 100 10/21/19 20:00 Mechanical Ventilator Mechanical Ventilator Mechanical Ventilator 10/21/19 20:00 40 10/21/19 19:33 57 21 40 10/21/19 19:12 57 10/21/19 17:14 146/73 10/21/19 17:00 57 20 40 10/21/19 16:00 40 10/21/19 16:00 67 10/21/19 16:00 Mechanical Ventilator Mechanical Ventilator Mechanical Ventilator 10/21/19 16:00 98.2 54 20 146/73 (97) 100 10/21/19 15:00 60 27 40 10/21/19 15:00 99 10/21/19 14:45 146/73 10/21/19 13:12 58 158/72 10/21/19 13:00 68 31 40 10/21/19 12:26 158/72 10/21/19 12:00 98.2 64 30 158/72 (100) 99 10/21/19 12:00 40 10/21/19 12:00 58 10/21/19 12:00 Mechanical Ventilator Mechanical Ventilator Mechanical Ventilator 10/21/19 11:23 59 27 40 10/21/19 10:30 60 21 40 10/21/19 09:01 137/61 10/21/19 09:00 58 137/61 10/21/19 09:00 59 22 40 10/21/19 08:00 Mechanical Ventilator Mechanical Ventilator Mechanical Ventilator 10/21/19 08:00 40 9/7/20 08:00 56 10/21/19 08:00 98.2 59 21 137/61 (86) 97 Intake and Output 10/22/19 10/23/19 19:00 07:00 Intake Total 925 ml 490 ml Output Total 375 ml 500 ml Balance 550 ml -10 ml Intake Free Water 390 ml 50 ml IV Total 55 ml Tube Feeding 480 ml 440 ml Output Urine Total 375 ml 500 ml # Bowel Movements 2 1 Labs Test 10/21/19 03:48 10/22/19 03:10 White Blood Count 9.0 K/UL (4.8-10.8) 11.3 K/UL (4.8-10.8) Red Blood Count 3.45 M/UL (4.20-5.40) 3.55 M/UL (4.20-5.40) Hemoglobin 10.5 G/DL (12.0-16.0) 10.7 G/DL (12.0-16.0) Hematocrit 32.0 % (37.0-47.0) 32.7 % (37.0-47.0) Mean Corpuscular Volume 93 FL (80-99) 92 FL (80-99) Mean Corpuscular Hemoglobin 30.3 PG (27.0-31.0) 30.0 PG (27.0-31.0) Mean Corpuscular Hemoglobin Concent 32.7 G/DL (32.0-36.0) 32.6 G/DL (32.0-36.0) Red Cell Distribution Width 14.9 % (11.6-14.8) 14.4 % (11.6-14.8) Platelet Count 394 K/UL (150-450) 383 K/UL (150-450) Mean Platelet Volume 4.9 FL (6.5-10.1) 4.9 FL (6.5-10.1) Neutrophils (%) (Auto) 71.2 % (45.0-75.0) 74.3 % (45.0-75.0) Lymphocytes (%) (Auto) 20.1 % (20.0-45.0) 18.5 % (20.0-45.0) Monocytes (%) (Auto) 4.6 % (1.0-10.0) 5.1 % (1.0-10.0) Eosinophils (%) (Auto) 3.4 % (0.0-3.0) 1.4 % (0.0-3.0) Basophils (%) (Auto) 0.7 % (0.0-2.0) 0.7 % (0.0-2.0) Sodium Level 134 MMOL/L (136-145) 135 MMOL/L (136-145) Potassium Level 3.1 MMOL/L (3.5-5.1) 4.0 MMOL/L (3.5-5.1) Chloride Level 97 MMOL/L (98-107) 99 MMOL/L (98-107) Carbon Dioxide Level 28 MMOL/L (21-32) 29 MMOL/L (21-32) Anion Gap 9 mmol/L (5-15) 7 mmol/L (5-15) Blood Urea Nitrogen 68 mg/dL (7-18) 69 mg/dL (7-18) Creatinine 2.4 MG/DL (0.55-1.30) 2.2 MG/DL (0.55-1.30) Estimat Glomerular Filtration Rate 21.7 mL/min (>60) 23.9 mL/min (>60) Glucose Level 114 MG/DL (74-106) 100 MG/DL (74-106) Calcium Level 9.1 MG/DL (8.5-10.1) 9.1 MG/DL (8.5-10.1) Phosphorus Level 3.7 MG/DL (2.5-4.9) 3.7 MG/DL (2.5-4.9) Magnesium Level 3.0 MG/DL (1.8-2.4) 3.0 MG/DL (1.8-2.4) Total Bilirubin 0.3 MG/DL (0.2-1.0) 0.4 MG/DL (0.2-1.0) Aspartate Amino Transf (AST/SGOT) 26 U/L (15-37) 23 U/L (15-37) Alanine Aminotransferase (ALT/SGPT) 11 U/L (12-78) 12 U/L (12-78) Alkaline Phosphatase 177 U/L (46-116) 174 U/L (46-116) Total Protein 6.8 G/DL (6.4-8.2) 6.8 G/DL (6.4-8.2) Albumin 1.8 G/DL (3.4-5.0) 1.8 G/DL (3.4-5.0) Globulin 5.0 g/dL 5.0 g/dL Albumin/Globulin Ratio 0.4 (1.0-2.7) 0.4 (1.0-2.7) Height (Feet): 5 Height (Inches): 5.00 Weight (Pounds): 134 Objective Physical Exam: Vitals: reviewed General: NAD HEENT: nc, at Neck: supple ++tracn/vent Chest: clear breath sounds bilaterally Cardiovascular: RRR, no s3, s4 Abdomen: soft, nontender, nd +gtube Extremities: no cce, normal range of motion Neuro: alert Evan Muhammad MD Oct 23, 2019 07:08
[2019-10-23 07:53] VITALS: BP 128/56
[2019-10-23] MEDS: Nephrovite tab (Rena-Vite) ORAL SCH (08:20)
[2019-10-23] MEDS: Morphine Sulfate 2mg/ml Inj(IV/IM USE ONLY) IVP PRN (08:20)
[2019-10-23] MEDS: Ascorbic Acid 500mg tab ORAL SCH (08:20)
[2019-10-23] MEDS: Lisinopril 20mg tab GT SCH ×2 (08:21→17:25)
[2019-10-23] MEDS: Heparin 5000 units/ml inj SUBQ SCH ×2 (08:22→21:13)
--- NOTE | 2019-10-23 08:58 | General Progress Note ---
Assessment/Plan Problem List: (1) S/P aortic dissection repair ICD Codes: Z98.890 - Other specified postprocedural states SNOMED: 096020169, 172055714 (2) Sacral decubitus ulcer, stage IV ICD Codes: L89.154 - Pressure ulcer of sacral region, stage 4 SNOMED: 284009035, 050364460 (3) Anemia ICD Codes: D64.9 - Anemia, unspecified SNOMED: 520558636 (4) GT CLOGGED (5) Feeding by G-tube ICD Codes: Z93.1 - Gastrostomy status SNOMED: 779196057, 500586596 (6) Tracheostomy in place ICD Codes: Z93.0 - Tracheostomy status SNOMED: 595345500 (7) Pacemaker ICD Codes: Z95.0 - Presence of cardiac pacemaker SNOMED: 430876655 (8) Chronic respiratory failure ICD Codes: J96.10 - Chronic respiratory failure, unspecified whether with hypoxia or hypercapnia SNOMED: 60690073 Status: stable, other - Mood has improved he is able to smile there is no continuous tearing overall she looks better today energy looking the last several days continue with the same management Assessment/Plan: GTF min GT leak add reglan monitor for residuals repeat labs abx per ID respiratory care dc planning per primary team Subjective ROS Limited/Unobtainable: No Allergies: Coded Allergies: No Known Allergies (Unverified , 10/10/17) Objective Last 24 Hour Vital Signs Date Time Temp Pulse Resp B/P (MAP) Pulse Ox O2 Delivery O2 Flow Rate FiO2 10/23/19 08:21 128/56 10/23/19 07:53 98.1 61 20 128/56 (80) 100 10/23/19 07:20 58 20 40 10/23/19 05:26 57 141/66 10/23/19 05:25 141/66 10/23/19 04:00 40 10/23/19 04:00 98.5 59 20 141/66 (91) 97 10/23/19 04:00 Mechanical Ventilator Mechanical Ventilator Mechanical Ventilator 10/23/19 04:00 66 10/23/19 02:50 60 20 40 10/23/19 00:00 98.1 64 18 147/63 (91) 96 10/23/19 00:00 61 10/23/19 00:00 Mechanical Ventilator Mechanical Ventilator Mechanical Ventilator 10/22/19 23:04 59 20 40 10/22/19 22:37 147/63 10/22/19 22:00 54 147/63 10/22/19 20:00 62 10/22/19 20:00 Mechanical Ventilator Mechanical Ventilator Mechanical Ventilator 10/22/19 20:00 40 10/22/19 20:00 98.2 62 20 154/68 (96) 98 10/22/19 19:41 71 22 40 10/22/19 17:13 148/64 10/22/19 16:00 Mechanical Ventilator Mechanical Ventilator Mechanical Ventilator 10/22/19 16:00 40 10/22/19 16:00 98.2 51 21 148/64 (92) 98 10/22/19 15:52 52 10/22/19 14:57 78 15 40 10/22/19 13:07 145/88 10/22/19 13:07 57 145/88 10/22/19 12:04 98.8 10/22/19 12:00 40 10/22/19 12:00 Mechanical Ventilator Mechanical Ventilator Mechanical Ventilator 10/22/19 12:00 99.2 54 20 145/88 (107) 97 10/22/19 12:00 57 10/22/19 10:56 61 21 40 Intake and Output 10/22/19 10/23/19 19:00 07:00 Intake Total 925 ml 530 ml Output Total 375 ml 500 ml Balance 550 ml 30 ml Intake Free Water 390 ml 50 ml IV Total 55 ml Tube Feeding 480 ml 480 ml Output Urine Total 375 ml 500 ml # Bowel Movements 2 1 Height (Feet): 5 Height (Inches): 5.00 Weight (Pounds): 134 General Appearance: no apparent distress EENT: normal ENT inspection Neck: supple Cardiovascular: normal rate Respiratory/Chest: decreased breath sounds Abdomen: normal bowel sounds, non tender, soft Extremities: non-tender Inder Mccauley MD Oct 23, 2019 08:58
[2019-10-23 09:33] LABS: ANION GAP 8 mmol/L (5-15); BLOOD UREA NITROGEN 87 mg/dL (7-18); CALCIUM 8.8 MG/DL (8.5-10.1); CARBON DIOXIDE 28 MMOL/L (21-32); CHLORIDE 100 MMOL/L (98-107); CREATININE 2.4 MG/DL (0.55-1.30); POTASSIUM 4.1 MMOL/L (3.5-5.1); SODIUM 136 MMOL/L (136-145)
[2019-10-23 09:46] LABS: ALANINE AMINOTRANSFERASE 11 U/L (12-78); ALBUMIN 1.7 G/DL (3.4-5.0); ALBUMIN/GLOBULIN RATIO 0.3 (1.0-2.7); ALKALINE PHOSPHATASE 171 U/L (46-116); ASPARTATE AMINO TRANSFERASE 17 U/L (15-37); BILIRUBIN,TOTAL 0.3 MG/DL (0.2-1.0)
[2019-10-23] MEDS: Acetaminophen 650mg/20.3ml GT PRN (11:00)
[2019-10-23 12:00] VITALS: BP 157/71
[2019-10-23] MEDS: HYDROmorphone 2mg tab GT SCH ×3 (13:00→21:11)
--- NOTE | 2019-10-23 13:02 | Nephrology Progress Note ---
Assessment/Plan Problem List: (1) JAVIER (acute kidney injury) (2) Renal failure (ARF), acute on chronic (3) Dehydration (4) Electrolyte imbalance (5) Anemia (6) Respiratory failure, acute and chronic (7) COPD with exacerbation Assessment Patient is presented with sepsis and pneumonia and UTI Patient has acute renal failure, possible underlying chronic kidney failure Severe anemia Electrolyte imbalances: Hyponatremia, hypo-kalemia Chronic respiratory failure, COPD exacerbation Plan October 22: Patient last dialysis October 16. Serum creatinine is creeping up. Clinically the patient is stable. Urine output remains reasonable. Continue current management. Upon discharge patient needs to be followed moss bleacher and arrange for as needed dialysis and ultrafiltration. Discussed with ERASMO Sen. October 21: Patient's last dialysis was October 16. Patient has been responding to Zaroxolyn, with decent urine output, and serum creatinine being stable. At this time will abort dialysis plan and continue per current management. Blood pressure medication adjusted. October 20: Patient appears to be responding to Zaroxolyn. Will repeat 10 mg Zaroxolyn via GT today. Continue monitor renal parameters. Potassium supplements given. Dialysis as needed. October 19: Patient responded to Zaroxolyn. Urine output increased. Will try 10 mg Zaroxolyn again today. Check renal parameters tomorrow. Dialysis as needed. October 18: Last dialysis October 16. Serum creatinine rising. Oliguria persists. Continue to monitor renal parameters and dialysis as needed. October 17: It appears that the patient received dialysis last night and the dialysis nurse changed her mind about delaying to today. Today's labs reviewed. Electrolyte abnormalities corrected. Continue per consultants. October 16: Late note entry due to system problem at the [facility] today.Patient due for dialysis today. Dialysis nurse informed that due to few emergencies if she can be done tomorrow. No chemistry panel for today." We will order labs on dialysis tomorrow. October 2: Last dialysis October 13. Labs were reviewed. Urine output very low. Will dialyze and ultrafiltrate tomorrow. Per consultants. October 14: Dialyzed yesterday. Labs reviewed. Medication list reviewed. Continue per consultants. October 13: Patient seen on dialysis. Tolerating well. Will check labs tomorrow. October 12: Blood pressure stable. Labs reviewed. BUN rising. Remains oliguric. Dialysis tomorrow. October 11: Blood pressure is stable. Labs reviewed. Continue as is. Dialysis as needed October 10: Blood pressure medication adjusted. Will check lab tomorrow. Dialysis as needed. Urine output remains low. October 09: Lab reviewed. Remains oliguric. Will give trial of Zaroxolyn. Continue per consultants. Adjust blood pressure medication. Will add Zaroxolyn and increased dose of Cardizem and add clonidine patch for better BP control October 08: Labs reviewed. Patient oliguric. Blood pressure elevated, BP medication adjusted. Recheck lab tomorrow. Dialysis and ultrafiltration as needed. October 07: Labs reviewed. Patient was dialyzed yesterday. 3000 mL fluid was removed. Patient appears to need periodic (twice a week minimum) dialysis for ultrafiltration. Continue to monitor renal parameters. Continue per consultants. October 06: Labs reviewed. Discussed with pulmonary. Will attempt dialysis and ultrafiltration. Continue per consultants. October 05: Lab reviewed. Serum creatinine rising. Blood pressure stabilized. Will recheck lab tomorrow. Dialysis as needed. Will increase lisinopril to 10 mg twice a day. October 04: Lab reviewed. Blood pressure medication adjusted since the patient is hypotensive. Serum creatinine rising. Recheck labs tomorrow. Dialysis as needed. Discussed with RN. October 03: Lab reviewed. Zestril added to BP medication. 1 dose of Seroquel ordered for agitation. Continue to monitor renal parameters. Continue per consultants. October 02: Lab reviewed. Potassium supplement IV given. 3% saline 250 cc ordered. Responded well to Zaroxolyn yesterday. Will continue to monitor electrolytes and renal parameters. Will increase minoxidil to 2.5 mg every 6 hours. October 01: Labs reviewed. Potassium supplement given. Last dialysis September 29. Serum creatinine rising gradually. Urine output very low. Patient appears to continue to need dialysis at least twice a week. Blood pressure still running high I will switch the hydralazine to minoxidil. We will give 1 dose of Zaroxolyn 10 mg today. Will check renal parameters tomorrow. September 30: Patient dialyzed yesterday. 3 L removed. Labs reviewed. Potassium supplement given. Continue per consultants. It appears that the patient required dialysis 2-3 times a week. September 29: Lab reviewed. Chest x-ray result noted. Continues to have pulmonary congestion. Urine output low. Will attempt dialysis again today with ultrafiltration. September 28: Lab reviewed. ABG reviewed. Potassium supplement given. No dialysis at this point. Will eval patient status and renal parameters daily. September 27: Lab reviewed. Last dialysis September 25. Continue to monitor renal parameters. Hemodialysis as needed. September 26: Lab reviewed. Dialyzed yesterday. Potassium supplement given. Medication list reviewed. Will observe renal parameters and arrange for dialysis as needed. September 25: Lab reviewed. Currently on hemodialysis. Tolerating well. Stable from renal standpoint of view. Blood pressure medication adjusted by increasing hydralazine. September 24: Lab reviewed. ABG reviewed. Both lab and ABG much improved. Patient was dialyzed yesterday. We will attempt dialysis tomorrow again. Will adjust that blood pressure medication dosages. September 23: Lab reviewed. ABG reviewed. Patient acidotic. IV bicarb 1 dose is given. Patient has dialysis catheter. Will order dialysis for ultrafiltration and correction of acid-base. Discussed with ERASMO Mohr. September 22: Labs reviewed. Potassium high. Kayexalate and Reglan given. Will discuss with the consultants regarding initiation of dialysis. September 21: Patient is being sedated. Labs reviewed. Potassium supplement discontinued. GFR 20. Continue per current treatment plan. Dialysis and ultrafiltration is a consideration. September 20: Patient periodically agitated. Labs reviewed. Creatinine 2.4. Medication reviewed. Continue per consultants. Calculated creatinine clearance 21. May need isolated ultrafiltration on dialysis. Will discuss with PMD. Meanwhile hemoglobin is lower, defer transfusion to PMD. September 19: DC IV fluid. Zaroxolyn via GT tube. Potassium supplement. Attempt to diurese. Chest CT as bilateral pleural effusion. If diuresis unsuccessful, will consider dialysis and ultrafiltration. September 18: Potassium supplement IV given. Hemoglobin stable. Patient remains full code. Continue per consultants. Previously: Potassium supplement IV Slow IV hydration Epogen subcu Adjust blood pressure medication IV fluid, rate adjusted Norman catheter, intake and output Monitor renal parameters Avoid nephrotoxic's Antibiotics Per orders 2D echocardiogram Kidney ultrasound Subjective ROS Limited/Unobtainable: Yes Objective Objective Last 24 Hour Vital Signs Date Time Temp Pulse Resp B/P (MAP) Pulse Ox O2 Delivery O2 Flow Rate FiO2 10/23/19 12:25 54 19 40 10/23/19 12:00 96.4 59 20 157/71 (99) 100 10/23/19 12:00 40 10/23/19 12:00 Mechanical Ventilator Mechanical Ventilator Mechanical Ventilator 10/23/19 11:50 55 11 40 40 10/23/19 08:21 128/56 10/23/19 08:00 64 10/23/19 08:00 Mechanical Ventilator Mechanical Ventilator Mechanical Ventilator 10/23/19 08:00 40 10/23/19 07:53 98.1 61 20 128/56 (80) 100 10/23/19 07:20 58 20 40 10/23/19 05:26 57 141/66 10/23/19 05:25 141/66 10/23/19 04:00 40 10/23/19 04:00 98.5 59 20 141/66 (91) 97 10/23/19 04:00 Mechanical Ventilator Mechanical Ventilator Mechanical Ventilator 10/23/19 04:00 66 10/23/19 02:50 60 20 40 10/23/19 00:00 98.1 64 18 147/63 (91) 96 10/23/19 00:00 61 10/23/19 00:00 Mechanical Ventilator Mechanical Ventilator Mechanical Ventilator 10/22/19 23:04 59 20 40 10/22/19 22:37 147/63 10/22/19 22:00 54 147/63 10/22/19 20:00 62 10/22/19 20:00 Mechanical Ventilator Mechanical Ventilator Mechanical Ventilator 10/22/19 20:00 40 10/22/19 20:00 98.2 62 20 154/68 (96) 98 10/22/19 19:41 71 22 40 10/22/19 17:13 148/64 10/22/19 16:00 Mechanical Ventilator Mechanical Ventilator Mechanical Ventilator 10/22/19 16:00 40 10/22/19 16:00 98.2 51 21 148/64 (92) 98 10/22/19 15:52 52 10/22/19 14:57 78 15 40 10/22/19 13:07 145/88 10/22/19 13:07 57 145/88 Intake and Output 10/22/19 10/23/19 19:00 07:00 Intake Total 925 ml 530 ml Output Total 375 ml 500 ml Balance 550 ml 30 ml Intake Free Water 390 ml 50 ml IV Total 55 ml Tube Feeding 480 ml 480 ml Output Urine Total 375 ml 500 ml # Bowel Movements 2 1 Current Medications Medications (Trade) Dose Ordered Sig/Penny Route PRN Reason Start Time Stop Time Status Last Admin Dose Admin Acetaminophen (Tylenol) 500 mg Q4H PRN GT Mild Pain (Pain Scale 1-3) 10/23/19 14:45 11/16/19 18:44 Ascorbic Acid (Vitamin C) 500 mg DAILY ORAL 10/11/19 09:00 11/05/19 08:59 10/23/19 08:20 Chlorhexidine Gluconate (Ling-Hex 2%) 1 applic DAILY@2000 TOPIC 10/11/19 20:00 12/22/19 19:59 10/22/19 20:38 Clonidine HCl (Catapres TTS-3) 1 patch QWEEK TDERMAL 10/14/19 12:00 01/12/20 11:59 10/21/19 12:26 Dextrose (Dextrose 50%) 25 ml Q30M PRN IV Hypoglycemia 10/11/19 04:30 01/03/20 18:29 Dextrose (Dextrose 50%) 50 ml Q30M PRN IV Hypoglycemia 10/11/19 04:30 01/03/20 18:29 Diltiazem HCl (Cardizem Tab) 90 mg Q8HR GT 10/16/19 14:00 11/09/19 11:59 10/19/19 13:16 Docusate Sodium (Colace) 100 mg Q8HR GT 10/14/19 14:01 11/13/19 14:00 10/21/19 21:43 Epoetin Gelacio (Epoetin Gelacio(ESRD on dialysis)) 10,000 unit MON-MON-MON SUBQ 10/14/19 21:00 01/12/20 20:59 10/21/19 21:44 Gentamicin Protocol (Gentamicin pharmacy to dose) 1 ea DAILY PRN MISC Per rx protocol 10/22/19 13:45 11/21/19 13:44 Haloperidol (Haldol) 10 mg BID GT 10/23/19 12:30 12/07/19 12:29 Heparin Sodium (Porcine) (Heparin 5000 units/ml) 5,000 units EVERY 12 HOURS SUBQ 10/11/19 09:00 10/30/19 08:59 10/23/19 08:22 Insulin Aspart (NovoLOG) Q6HR SUBQ 10/11/19 06:00 01/03/20 20:59 Lansoprazole (Prevacid) 30 mg Q12HR GT 10/11/19 09:00 10/27/19 20:59 10/23/19 08:20 Lisinopril (PriniviL) 20 mg BID GT 10/11/19 09:00 11/08/19 17:59 10/23/19 08:21 Metoclopramide HCl (Reglan) 5 mg EVERY 6 HOURS GT 10/11/19 06:00 11/08/19 11:59 10/23/19 12:18 Metolazone (Zaroxolyn) 5 mg DAILY GT 10/23/19 09:00 11/22/19 08:59 10/23/19 08:20 Minoxidil (Loniten) 5 mg Q8HR ORAL 10/22/19 14:00 01/08/20 13:59 10/23/19 05:25 Polyethylene Glycol (Miralax) 17 gm BEDTIME ORAL 10/11/19 21:00 10/31/19 20:59 10/21/19 20:20 Potassium Chloride (K-Dur) 40 meq TWICE A DAY GT 10/21/19 11:15 01/19/20 11:14 10/23/19 08:20 Risperidone (RisperDAL) 2 mg BEDTIME ORAL 10/11/19 21:00 11/19/19 20:59 10/22/19 20:38 Sorbitol (sorbitoL) 30 ml EVERY 6 HOURS PRN GT Constipation 10/11/19 06:00 10/29/19 17:59 Vitamin B Complex/ Vit C/Folic Acid (Nephrovite) 1 tab DAILY ORAL 10/11/19 09:00 11/05/19 08:59 10/23/19 08:20 Laboratory Tests 10/22/19 16:48: POC Whole Blood Glucose [Pending] 10/22/19 23:55: POC Whole Blood Glucose 103 10/23/19 05:21: POC Whole Blood Glucose 120H 10/23/19 08:45: Sodium Level 136, Potassium Level 4.1, Chloride Level 100, Carbon Dioxide Level 28, Anion Gap 8, Blood Urea Nitrogen 87H, Creatinine 2.4H, Estimat Glomerular Filtration Rate 21.7, Glucose Level 117H, Calcium Level 8.8, Phosphorus Level 4.0, Magnesium Level 3.2H, Total Bilirubin 0.3, Aspartate Amino Transf (AST/SGOT ) 17, Alanine Aminotransferase (ALT/SGPT) 11L, Alkaline Phosphatase 171H, Total Protein 6.7, Albumin 1.7L, Globulin 5.0, Albumin/Globulin Ratio 0.3L 10/23/19 11:31: POC Whole Blood Glucose 98 Height (Feet): 5 Height (Inches): 5.00 Weight (Pounds): 134 General Appearance: no apparent distress EENT: other - On mechanical ventilation Cardiovascular: normal rate Respiratory/Chest: decreased breath sounds Abdomen: distended Objective No change Johnny Houston MD Oct 23, 2019 13:02
--- NOTE | 2019-10-23 13:05 | Infectious Diseases Prog Note ---
Assessment/Plan 49yo F with: Fever, recurrent; SP Leukocytosis, recurrent -10/14 Bcx NTD Acute hypoxic resp failure: Now on vent, worsening, FiO2 100% > 80% 09/27 > 60% >40% 10/08 >30% 10/09 >40% 10/14 Pneumonia, COVID19 neg x3 - MDR PsA pneumonia,s pr x 10/14 CXR: Increased right pleural fluid and parenchymal disease, since previous exam of 10/09/2019. Stable pleural and parenchymal disease on the left sp cx ESBL P. mirabilis, MDR P.a. ( S only to Gent) 10/07 CXR: Bilateral infiltrates versus edema, left greater than right pleural effusions are again demonstrated, unchanged. There is slightly better inspiration currently. 09/29 CXR: Bilateral edema versus infiltrates appears slightly worse than on the prior study. There is probably some pleural fluid on the left. 09/26 S/P thoracentesis, 900cc removed, only 67 WBC in fluid analysis, unlikely empyema 09/26 CXR: Worsening R perihilar opacity 09/26 BCx Neg 09/24 CXR: Previously demonstrated right lateral basilar lucency is no longer evident, was presumably a skin fold artifact. Bilateral infiltrates and left pleural effusion are probably unchanged allowing for slight differences in technique. 09/22 Resp cx + MDR PsA (S-gent; I-colistin; R-levofloxacin, Zosyn, angelo) 09/22 BCx NTD 09/22 CXR: worsening BL pna 09/22 UA w/ persistent pyuria, now on HD, UCx +VRE, most likely colonizer as improving wo tx for this 09/19 V/Q scan, low probability of PE 09/18 Rapid COVID PCR neg 09/18 CT chest: Markedly suboptimal examination due to lack of IV contrast material. Bilateral pleural effusions, right greater than left, with bilateral lower lobe consolidation or volume loss. Ground glass densities in the upper lobes bilaterally. This is not specific. Tracheostomy. Increased superior mediastinal density. Stability of adenopathy cannot be excluded. Atherosclerotic change. Gastrostomy. Ascites. Left renal stent with left hydronephrosis and renal atrophy. 09/17 Chest US: Trace right and small left pleural effusions. No safe window identified for bedside thoracentesis. Note that the majority of the left pleural effusion is subpulmonic. 09/16 CXR: Worsening of right lung infiltrates and right effusion. V. duplex: NO DVT D-dimer elevated 09/15 Rapid COVID PCR neg 09/15 Sp cx ESBL P. mirablis 09/14 CXR: Bilateral airspace opacities, preferentially involving the right lung, consistent with multifocal infiltrate. Trace bilateral pleural effusions. No pneumothorax. Rapid COVID PCR neg Urine legionella neg 09/16 GPC bacteremia, real vs contaminant; does have hx of infected PPM- 09/14 Bcx 2/ S. epidermis; 09/15, , Bcx Neg 2d echo: no vegetations seen UTI, recurrent 09/14 u/a wbc tnct, nit neg, leuk +3; ucx >100k MDR P. stuarti (S Ceftriaxone, Meropenem) 09/22 UA w/ ongoing pyuria, unchanged 10/07 u/a wbc tnct, nit neg, leuk ; ucx >100k VRE 10/14 u/a wbc tnct; ucx >100k ESBL P. stuarti (S ertapenem, aztreonam) Unstageable sacral ulceration JAVIER on CKD --> now on HD Renal US: Limited exam due to abdominal ascites and shadowing from bowel gas. CT recommended for more sensitive evaluation. Moderate right hydronephrosis. Increased renal parenchymal echogenicity suggesting intrinsic/ medical renal disease. Question indwelling left ureteral stent versus artifact. Bladder not visualized. 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 epi-11/2018, sp > 6weeks IV vancomycin 11/27 SP ABBIE: no evidence for vegetation on any of the valves 11/26/18 SP PPM removal: OR findings:The fibrous capsule enclosing the generator was then opened and there was a [id number] amount of yellowish fluid drainage. The generator was then removed.Atrial and ventricular leads were detached. The necrotic tissue of the pocket was then removed and the pocket was flushed with an antibiotic solution. Capsule, wound tissue and lead tip cx: Neg 2d echo: no vegetation seen US chest: 4.6 x 3.4 x 0.9 cm hypoechoic/anechoic area overlying left chest pacemaker power pack. This could represent either a discrete fluid collection or a focal area of very edematous tissue. Infected fluid pocket also possible. 11/18 Bcx 3/4 S. epi; 11/20 Bcx neg; 11/24 Bcx Neg; 11/27 Bcx Neg Hx of PNA 11/2019? sp cx PsA (arnett S), ABC (I Ceftriaxone; otherwise negative) Sp cx MRSA, ABC (I Ceftriaxone; otherwise S) PMH: Afib HTN Dysphagia sp GT Aortic dissection s/p repair 2017, S/p PPM Parkinson's Disease Schizophrenia Anxiety COPD Chronic resp failure s/p trach Hx of tracheal bleeding [place] resident ([facility]) Plan: Continue IV Gentamycin #2/5 for MDR PsA given leukocytosis 10/21 SP Meropenem #5 10/14 SP Daptomycin #5 10/03 SP Zerbaxa #6, gent #7 for MDR PsA pna 09/29 SP vanco #15 for S.epi in BCx 09/27 SP angelo #13 09/16 SP Cefepime #3, Levaquin #3 Monitor CBC/CMP, temperatures trach/ peg care Aspiration precautions CBC, CXR am D/w RN Thank you for this consultation. Will continue to follow along with you. Subjective Allergies: Coded Allergies: No Known Allergies (Unverified , 10/10/17) afebrile leukocytosis recurrent; now 17 Bcx NTD Objective Last 24 Hour Vital Signs Date Time Temp Pulse Resp B/P (MAP) Pulse Ox O2 Delivery O2 Flow Rate FiO2 10/23/19 12:25 54 19 40 10/23/19 12:00 96.4 59 20 157/71 (99) 100 10/23/19 12:00 40 10/23/19 12:00 Mechanical Ventilator Mechanical Ventilator Mechanical Ventilator 10/23/19 11:50 55 11 40 40 10/23/19 08:21 128/56 10/23/19 08:00 64 10/23/19 08:00 Mechanical Ventilator Mechanical Ventilator Mechanical Ventilator 10/23/19 08:00 40 10/23/19 07:53 98.1 61 20 128/56 (80) 100 10/23/19 07:20 58 20 40 10/23/19 05:26 57 141/66 10/23/19 05:25 141/66 10/23/19 04:00 40 10/23/19 04:00 98.5 59 20 141/66 (91) 97 10/23/19 04:00 Mechanical Ventilator Mechanical Ventilator Mechanical Ventilator 10/23/19 04:00 66 10/23/19 02:50 60 20 40 10/23/19 00:00 98.1 64 18 147/63 (91) 96 10/23/19 00:00 61 10/23/19 00:00 Mechanical Ventilator Mechanical Ventilator Mechanical Ventilator 10/22/19 23:04 59 20 40 10/22/19 22:37 147/63 10/22/19 22:00 54 147/63 10/22/19 20:00 62 10/22/19 20:00 Mechanical Ventilator Mechanical Ventilator Mechanical Ventilator 10/22/19 20:00 40 10/22/19 20:00 98.2 62 20 154/68 (96) 98 10/22/19 19:41 71 22 40 10/22/19 17:13 148/64 10/22/19 16:00 Mechanical Ventilator Mechanical Ventilator Mechanical Ventilator 10/22/19 16:00 40 10/22/19 16:00 98.2 51 21 148/64 (92) 98 10/22/19 15:52 52 10/22/19 14:57 78 15 40 10/22/19 13:07 145/88 10/22/19 13:07 57 145/88 Height (Feet): 5 Height (Inches): 5.00 Weight (Pounds): 134 Gen: no distress Cardiovascular: RrR, S1 S2 normal Respiratory: decreased breath sounds Abdomen: soft, non-tender, present bowel sounds Extremities: no edema, no tenderness Laboratory Tests Test 10/22/19 16:48 10/22/19 23:55 10/23/19 05:21 10/23/19 08:45 POC Whole Blood Glucose Pending 103 MG/DL (74-106) 120 MG/DL (74-106) H Sodium Level 136 MMOL/L (136-145) Potassium Level 4.1 MMOL/L (3.5-5.1) Chloride Level 100 MMOL/L (98-107) Carbon Dioxide Level 28 MMOL/L (21-32) Anion Gap 8 mmol/L (5-15) Blood Urea Nitrogen 87 mg/dL (7-18) H Creatinine 2.4 MG/DL (0.55-1.30) H Estimat Glomerular Filtration Rate 21.7 mL/min (>60) Glucose Level 117 MG/DL (74-106) H Calcium Level 8.8 MG/DL (8.5-10.1) Phosphorus Level 4.0 MG/DL (2.5-4.9) Magnesium Level 3.2 MG/DL (1.8-2.4) H Total Bilirubin 0.3 MG/DL (0.2-1.0) Aspartate Amino Transf (AST/SGOT) 17 U/L (15-37) Alanine Aminotransferase (ALT/SGPT) 11 U/L (12-78) L Alkaline Phosphatase 171 U/L (46-116) H Total Protein 6.7 G/DL (6.4-8.2) Albumin 1.7 G/DL (3.4-5.0) L Globulin 5.0 g/dL Albumin/Globulin Ratio 0.3 (1.0-2.7) L Test 10/23/19 11:31 POC Whole Blood Glucose 98 MG/DL (74-106) Current Medications Medications (Trade) Dose Ordered Sig/Penny Route PRN Reason Start Time Stop Time Status Last Admin Dose Admin Acetaminophen (Tylenol) 500 mg Q4H PRN GT Mild Pain (Pain Scale 1-3) 10/23/19 14:45 11/16/19 18:44 Ascorbic Acid (Vitamin C) 500 mg DAILY ORAL 10/11/19 09:00 11/05/19 08:59 10/23/19 08:20 Chlorhexidine Gluconate (Ling-Hex 2%) 1 applic DAILY@1999 TOPIC 10/11/19 20:00 12/22/19 19:59 10/22/19 20:38 Clonidine HCl (Catapres TTS-3) 1 patch QWEEK TDERMAL 10/14/19 12:00 01/12/20 11:59 10/21/19 12:26 Dextrose (Dextrose 50%) 25 ml Q30M PRN IV Hypoglycemia 10/11/19 04:30 01/03/20 18:29 Dextrose (Dextrose 50%) 50 ml Q30M PRN IV Hypoglycemia 10/11/19 04:30 01/03/20 18:29 Diltiazem HCl (Cardizem Tab) 90 mg Q8HR GT 10/16/19 14:00 11/09/19 11:59 10/19/19 13:16 Docusate Sodium (Colace) 100 mg Q8HR GT 10/14/19 14:01 11/13/19 14:00 9/7/20 21:43 Epoetin Gelacio (Epoetin Gelacio(ESRD on dialysis)) 10,000 unit MON-MON-MON SUBQ 10/14/19 21:00 01/12/20 20:59 10/21/19 21:44 Gentamicin Protocol (Gentamicin pharmacy to dose) 1 ea DAILY PRN MISC Per rx protocol 10/22/19 13:45 11/21/19 13:44 Haloperidol (Haldol) 10 mg BID GT 10/23/19 12:30 12/07/19 12:29 Heparin Sodium (Porcine) (Heparin 5000 units/ml) 5,000 units EVERY 12 HOURS SUBQ 10/11/19 09:00 10/30/19 08:59 10/23/19 08:22 Insulin Aspart (NovoLOG) Q6HR SUBQ 10/11/19 06:00 01/03/20 20:59 Lansoprazole (Prevacid) 30 mg Q12HR GT 10/11/19 09:00 10/27/19 20:59 10/23/19 08:20 Lisinopril (PriniviL) 20 mg BID GT 10/11/19 09:00 11/08/19 17:59 10/23/19 08:21 Metoclopramide HCl (Reglan) 5 mg EVERY 6 HOURS GT 10/11/19 06:00 11/08/19 11:59 10/23/19 12:18 Metolazone (Zaroxolyn) 5 mg DAILY GT 10/23/19 09:00 11/22/19 08:59 10/23/19 08:20 Minoxidil (Loniten) 5 mg Q8HR ORAL 10/22/19 14:00 01/08/20 13:59 10/23/19 05:25 Polyethylene Glycol (Miralax) 17 gm BEDTIME ORAL 10/11/19 21:00 10/31/19 20:59 10/21/19 20:20 Potassium Chloride (K-Dur) 40 meq TWICE A DAY GT 10/21/19 11:15 01/19/20 11:14 10/23/19 08:20 Risperidone (RisperDAL) 2 mg BEDTIME ORAL 10/11/19 21:00 11/19/19 20:59 10/22/19 20:38 Sorbitol (sorbitoL) 30 ml EVERY 6 HOURS PRN GT Constipation 10/11/19 06:00 10/29/19 17:59 Vitamin B Complex/ Vit C/Folic Acid (Nephrovite) 1 tab DAILY ORAL 10/11/19 09:00 11/05/19 08:59 10/23/19 08:20 Doreen Nino M.D. Oct 23, 2019 13:05
--- NOTE | 2019-10-23 15:04 | Surgery Progress Note ---
Surgery Progress Note Subjective Symptoms: improved, tolerating diet, passing flatus, BM Objective Last 24 Hour Vital Signs Date Time Temp Pulse Resp B/P (MAP) Pulse Ox O2 Delivery O2 Flow Rate FiO2 10/23/19 13:29 157/71 10/23/19 12:25 54 19 40 10/23/19 12:00 96.4 59 20 157/71 (99) 100 10/23/19 12:00 40 10/23/19 12:00 Mechanical Ventilator Mechanical Ventilator Mechanical Ventilator 10/23/19 11:50 55 11 40 40 10/23/19 11:31 57 10/23/19 08:21 128/56 10/23/19 08:00 64 10/23/19 08:00 Mechanical Ventilator Mechanical Ventilator Mechanical Ventilator 10/23/19 08:00 40 10/23/19 07:53 98.1 61 20 128/56 (80) 100 10/23/19 07:20 58 20 40 10/23/19 05:26 57 141/66 10/23/19 05:25 141/66 10/23/19 04:00 40 10/23/19 04:00 98.5 59 20 141/66 (91) 97 10/23/19 04:00 Mechanical Ventilator Mechanical Ventilator Mechanical Ventilator 10/23/19 04:00 66 10/23/19 02:50 60 20 40 10/23/19 00:00 98.1 64 18 147/63 (91) 96 10/23/19 00:00 61 10/23/19 00:00 Mechanical Ventilator Mechanical Ventilator Mechanical Ventilator 10/22/19 23:04 59 20 40 10/22/19 22:37 147/63 10/22/19 22:00 54 147/63 10/22/19 20:00 62 10/22/19 20:00 Mechanical Ventilator Mechanical Ventilator Mechanical Ventilator 10/22/19 20:00 40 10/22/19 20:00 98.2 62 20 154/68 (96) 98 10/22/19 19:41 71 22 40 10/22/19 17:13 148/64 10/22/19 16:00 Mechanical Ventilator Mechanical Ventilator Mechanical Ventilator 10/22/19 16:00 40 10/22/19 16:00 98.2 51 21 148/64 (92) 98 10/22/19 15:52 52 I&O Intake and Output 10/22/19 10/23/19 19:00 07:00 Intake Total 925 ml 530 ml Output Total 375 ml 500 ml Balance 550 ml 30 ml Intake Free Water 390 ml 50 ml IV Total 55 ml Tube Feeding 480 ml 480 ml Output Urine Total 375 ml 500 ml # Bowel Movements 2 1 Dressing: saturated Cardiovascular: RSR, other Respiratory: decreased breath sounds, other Abdomen: soft, non-tender, present bowel sounds, other Extremities: no tenderness, no cyanosis Laboratory Tests Test 10/22/19 16:48 10/22/19 23:55 10/23/19 05:21 10/23/19 08:45 POC Whole Blood Glucose Pending 103 MG/DL (74-106) 120 MG/DL (74-106) H Sodium Level 136 MMOL/L (136-145) Potassium Level 4.1 MMOL/L (3.5-5.1) Chloride Level 100 MMOL/L (98-107) Carbon Dioxide Level 28 MMOL/L (21-32) Anion Gap 8 mmol/L (5-15) Blood Urea Nitrogen 87 mg/dL (7-18) H Creatinine 2.4 MG/DL (0.55-1.30) H Estimat Glomerular Filtration Rate 21.7 mL/min (>60) Glucose Level 117 MG/DL (74-106) H Calcium Level 8.8 MG/DL (8.5-10.1) Phosphorus Level 4.0 MG/DL (2.5-4.9) Magnesium Level 3.2 MG/DL (1.8-2.4) H Total Bilirubin 0.3 MG/DL (0.2-1.0) Aspartate Amino Transf (AST/SGOT) 17 U/L (15-37) Alanine Aminotransferase (ALT/SGPT) 11 U/L (12-78) L Alkaline Phosphatase 171 U/L (46-116) H Total Protein 6.7 G/DL (6.4-8.2) Albumin 1.7 G/DL (3.4-5.0) L Globulin 5.0 g/dL Albumin/Globulin Ratio 0.3 (1.0-2.7) L Test 10/23/19 11:31 POC Whole Blood Glucose 98 MG/DL (74-106) Plan Problems: (1) Anemia (2) Proteinuria (3) UTI (urinary tract infection) (4) ARF (acute renal failure) (5) ACS (acute coronary syndrome) (6) Respiratory failure, acute and chronic (7) HCAP (healthcare-associated pneumonia) (8) Abrasion of lip, initial encounter (9) COPD with exacerbation (10) Hypokalemia (11) Sepsis Assessment & Plan: Leukocytosis, anemia, abnormal labs. Renal insufficiency potentially dehydrated Abnormal LFTs alk phos elevated Urine noted significant bacteria likely UTI etiology Wound stable still requiring local care IV antibiotics per infectious disease Discussed with hook puller Dr. Berkowitz air mattress turn q2h nutritional tf will follow with recs thank you CT noted pending VQ scan - noted poor study low prob PE work respiratory increasing needs sedation weaning vent settings 80% peep 10 now comfortable Hd line in receiving HD plan for left thora 09/26 cont weaning vent as tolerated improving labs improved placement d/c planning (12) Chronic respiratory failure (13) Ascites (14) Bacteremia (15) Hypernatremia (16) Pleural effusion (17) Pacemaker (18) Aortic dissection, thoracic (19) Tracheostomy in place Assessment & Plan: trach stable no bleeding currently likely tongue etiology of mild oozing currently hemostatic without trauma (20) Feeding by G-tube Assessment & Plan: okay to resume tube feeds via g tube patent and functional dressings okay DAILY ESTIMATED NEEDS: Needs based on Pulmonary, wound 49kg 30-35 kcals/kg 7801-9375 total kcals 1.25-2 g protein/kg 61-98 g total protein Fluid per MD NUTRITION DIAGNOSIS: * Swallowing difficulty R/T dysphagia, respiratory status as evidenced by vent dep via T-collar, GT Dep. (CURRENT TF: Nepro @45ml/hr x 24 hrs) ENTERAL NUTRITION RECOMMENDATIONS: Nepro @ 40ml/hr x 24 hrs to provide 960ml, 1728kcal, 78g prot, 698ml free water * Rec LOWER current rate to 40ml/hr for 24 hrs run. * Water flush of 100ml q 6 hrs per orders * HOB over 30 degrees ADDITIONAL RECOMMENDATIONS: * Per SNF: HT=63", [id number] -> rec calibrated bedscale wt * Pt on Nepro COMPLIANCE MANAGER, possible h/o electrolyte imbalance -> monitor lytes closely (K low at this time) * CLINICAL APPLICATION SPECIALIST eval for oral grat if appropriate * F/up w/ WC eval-> add FRANKLIN in 4oz H20 BID via GT (21) JAVIER (acute kidney injury) (22) Elevated alkaline phosphatase level Assessment & Plan: noted on labs trend US ordered will follow with recs thank you (23) Acute encephalopathy (24) GT CLOGGED (25) Sacral decubitus ulcer, stage IV Assessment & Plan: Pt presented on admission with Full thickness stage 4 Sacral Pressure injury which extends into R gluteal cheek. Base of wound is granular with bone exposure at base of sacrococcygeal.(L)10.5cm x (W06.5cm x (D) 2.8cm , undermining 11-3 by 3.6cm @12 o'clock. small amt serosanguineous exudate noted . [place] epithelial along edges bordered by darker skin tone without erythema. Resolving Pressure injury L ischium. Base of wound is 95% pink epithelial ,5% noni at center base of wound. No exudate noted. Both heels are boggy with non-Blanching erythema. Tx.plan: Cleanse Sacral wound with Saline. Loosely pack with Hydrogel impregnated Kerlix. Apply Moisture Barrier Periwound. Cover with Optifoam drsg Daily and prn. Apply Moisture Barrier paste to L Ischium. Cover with Optifoam drsg. Changee very 3 days and prn. Apply Cavilon Skin Barrier to both heels. Cover each heel with Optifoam drsgs. Change every 7 days and prn. Reposition at least every 2hours or as tolerated. Off-load heels with pillow. APM/MAXWELL Mattress overlay. Sacral wound resolving. Wound is smaller in size with less depth and undermining (L)8.5cm x (W)5cm x (D)1.3cm, undermining clockwise 11-3 by 2.1cm @ 12o'clock. Base of wound is pink and moist, small area of bone exposure at base. Small amt. seropurulent exudate noted. No odor noted. Periwound without evidence of further skin breakdown noted. Wound Tx. are effective and continued as ordered. Al wound prevention protocols continued as care-planned. Tx.Plan:Cleanse sacral wound with Saline. Loosely pack with Hydrogel impregnated kerlix. Apply Moisture Barrier Paste periwound. Cover with Optifoam drsg Daily and prn. Apply Cavilon Skin Barrier to both heels and malleoli. Cover eachsite with Optifoam drsgs. Change every 7 days and prn. Reposition at least every 2hours or as tolerated. Off-load heels with pillow. APM/Maxwell Mattress overlay. Lane Saavedra Oct 23, 2019 15:03
[2019-10-23 16:00] VITALS: BP 145/76
--- NOTE | 2019-10-23 16:49 | Pulmonology Progress Note ---
Yara Castro SALES ASSISTANT 10/23/19 1649: Subjective ROS Limited/Unobtainable: Yes Allergies: Coded Allergies: No Known Allergies (Unverified , 10/10/17) Subjective in [place] now on CPAP trials with PS 8 , tolerated for 8 hrs no signs of resp distress denies CP, SOB afebrile, Objective Last 24 Hour Vital Signs Date Time Temp Pulse Resp B/P (MAP) Pulse Ox O2 Delivery O2 Flow Rate FiO2 10/23/19 16:00 40 10/23/19 16:00 97.8 61 20 145/76 (99) 100 10/23/19 16:00 Mechanical Ventilator Mechanical Ventilator Mechanical Ventilator 10/23/19 16:00 55 10/23/19 15:13 62 21 40 10/23/19 13:29 157/71 10/23/19 12:25 54 19 40 10/23/19 12:00 96.4 59 20 157/71 (99) 100 10/23/19 12:00 40 10/23/19 12:00 Mechanical Ventilator Mechanical Ventilator Mechanical Ventilator 10/23/19 11:50 55 11 40 40 10/23/19 11:31 57 10/23/19 08:21 128/56 10/23/19 08:00 64 10/23/19 08:00 Mechanical Ventilator Mechanical Ventilator Mechanical Ventilator 10/23/19 08:00 40 10/23/19 07:53 98.1 61 20 128/56 (80) 100 10/23/19 07:20 58 20 40 10/23/19 05:26 57 141/66 10/23/19 05:25 141/66 10/23/19 04:00 40 10/23/19 04:00 98.5 59 20 141/66 (91) 97 10/23/19 04:00 Mechanical Ventilator Mechanical Ventilator Mechanical Ventilator 10/23/19 04:00 66 10/23/19 02:50 60 20 40 10/23/19 00:00 98.1 64 18 147/63 (91) 96 10/23/19 00:00 61 10/23/19 00:00 Mechanical Ventilator Mechanical Ventilator Mechanical Ventilator 10/22/19 23:04 59 20 40 10/22/19 22:37 147/63 10/22/19 22:00 54 147/63 10/22/19 20:00 62 10/22/19 20:00 Mechanical Ventilator Mechanical Ventilator Mechanical Ventilator 10/22/19 20:00 40 10/22/19 20:00 98.2 62 20 154/68 (96) 98 10/22/19 19:41 71 22 40 10/22/19 17:13 148/64 Intake and Output 10/22/19 10/23/19 19:00 07:00 Intake Total 925 ml 530 ml Output Total 375 ml 500 ml Balance 550 ml 30 ml Intake Free Water 390 ml 50 ml IV Total 55 ml Tube Feeding 480 ml 480 ml Output Urine Total 375 ml 500 ml # Bowel Movements 2 1 Objective General Appearance: no apparent distress, bedridden middle age chronically ill looking female on vent AC 500-20- 40%, PEEP 5, awake, calm-currently on CPAP PS8 Lines, tubes and drains: left jugular HD catheter HEENT: normocephalic, atraumatic, anicteric, trach - Shiley #7 cuffed XLT, secretions small amount, yellow color , thick consistency Respiratory/Chest: no accessory muscle use, BS overall CTAB Cardiovascular/Chest: normal rate, regular rhythm - SR on tele Abdomen: normal bowel sounds, non tender, soft, G tube Genitourinary/Rectal: [place] Extremities: no edema Skin Exam: warm/dry, multiple tattoos all over the body Neurologic: awake, no gross focal Musculoskeletal: atrophy - BLE Laboratory Tests 10/22/19 16:48: POC Whole Blood Glucose [Pending] 10/22/19 23:55: POC Whole Blood Glucose 103 10/23/19 05:21: POC Whole Blood Glucose 120H 10/23/19 08:45: Sodium Level 136, Potassium Level 4.1, Chloride Level 100, Carbon Dioxide Level 28, Anion Gap 8, Blood Urea Nitrogen 87H, Creatinine 2.4H, Estimat Glomerular Filtration Rate 21.7, Glucose Level 117H, Calcium Level 8.8, Phosphorus Level 4.0, Magnesium Level 3.2H, Total Bilirubin 0.3, Aspartate Amino Transf (AST/SGOT ) 17, Alanine Aminotransferase (ALT/SGPT) 11L, Alkaline Phosphatase 171H, Total Protein 6.7, Albumin 1.7L, Globulin 5.0, Albumin/Globulin Ratio 0.3L 10/23/19 11:31: POC Whole Blood Glucose 98 10/23/19 15:05: Random Gentamicin Level 2.0 10/23/19 16:23: POC Whole Blood Glucose 87 Current Medications Medications (Trade) Dose Ordered Sig/Penny Route PRN Reason Start Time Stop Time Status Last Admin Dose Admin Acetaminophen (Tylenol) 500 mg Q4H PRN GT Mild Pain (Pain Scale 1-3) 10/23/19 14:45 11/16/19 18:44 Ascorbic Acid (Vitamin C) 500 mg DAILY ORAL 10/11/19 09:00 11/05/19 08:59 10/23/19 08:20 Chlorhexidine Gluconate (Ling-Hex 2%) 1 applic DAILY@1999 TOPIC 10/11/19 20:00 12/22/19 19:59 10/22/19 20:38 Clonidine HCl (Catapres TTS-3) 1 patch QWEEK TDERMAL 10/14/19 12:00 01/12/20 11:59 10/21/19 12:26 Dextrose (Dextrose 50%) 25 ml Q30M PRN IV Hypoglycemia 10/11/19 04:30 01/03/20 18:29 Dextrose (Dextrose 50%) 50 ml Q30M PRN IV Hypoglycemia 10/11/19 04:30 01/03/20 18:29 Diltiazem HCl (Cardizem Tab) 90 mg Q8HR GT 10/16/19 14:00 11/09/19 11:59 10/19/19 13:16 Docusate Sodium (Colace) 100 mg Q8HR GT 10/14/19 14:01 11/13/19 14:00 10/21/19 21:43 Epoetin Gelacio (Epoetin Gelacio(ESRD on dialysis)) 10,000 unit MON-MON-MON SUBQ 10/14/19 21:00 01/12/20 20:59 10/21/19 21:44 Gentamicin Protocol (Gentamicin pharmacy to dose) 1 ea DAILY PRN MISC Per rx protocol 10/22/19 13:45 11/21/19 13:44 Gentamicin Sulfate 80 mg/ Sodium Chloride 112 ml @ 224 mls/hr ONCE ONCE IVPB 10/24/19 03:00 10/24/19 03:29 Haloperidol (Haldol) 10 mg BID GT 10/23/19 12:30 12/07/19 12:29 10/23/19 13:34 Heparin Sodium (Porcine) (Heparin 5000 units/ml) 5,000 units EVERY 12 HOURS SUBQ 10/11/19 09:00 10/30/19 08:59 10/23/19 08:22 Hydromorphone HCl (Dilaudid) 1.5 mg Q8HR GT 10/23/19 13:00 10/30/19 12:59 Insulin Aspart (NovoLOG) Q6HR SUBQ 10/11/19 06:00 01/03/20 20:59 Lansoprazole (Prevacid) 30 mg Q12HR GT 10/11/19 09:00 10/27/19 20:59 10/23/19 08:20 Lisinopril (PriniviL) 20 mg BID GT 10/11/19 09:00 11/08/19 17:59 10/23/19 08:21 Metoclopramide HCl (Reglan) 5 mg EVERY 6 HOURS GT 10/11/19 06:00 11/08/19 11:59 10/23/19 12:18 Metolazone (Zaroxolyn) 5 mg DAILY GT 10/23/19 09:00 11/22/19 08:59 10/23/19 08:20 Minoxidil (Loniten) 5 mg Q8HR ORAL 10/22/19 14:00 01/08/20 13:59 10/23/19 13:29 Polyethylene Glycol (Miralax) 17 gm BEDTIME ORAL 10/11/19 21:00 10/31/19 20:59 10/21/19 20:20 Potassium Chloride (K-Dur) 40 meq TWICE A DAY GT 10/21/19 11:15 01/19/20 11:14 10/23/19 08:20 Risperidone (RisperDAL) 2 mg BEDTIME ORAL 10/11/19 21:00 11/19/19 20:59 10/22/19 20:38 Sorbitol (sorbitoL) 30 ml EVERY 6 HOURS PRN GT Constipation 10/11/19 06:00 10/29/19 17:59 Vitamin B Complex/ Vit C/Folic Acid (Nephrovite) 1 tab DAILY ORAL 10/11/19 09:00 11/05/19 08:59 10/23/19 08:20 Assessment/Plan Assessment/Plan ASSESSMENT Acute on chronic hypoxemic respiratory failure ( trach dependent), now on vent Tracheostomy status, s/p change to cuffed trach Sepsis Pulmonary edema Pleural effusion -worsening left pl effusion s/p thoracentesis L pleural effusion 09/26 -900 ml Pneumonia with MDR Pseudomonas UTI CHF ? cardiorenal COPD Acute kidney injury and chronic kidney disease-requiring start of HD Hypertension Atrial fibrillation Moderate pulm HTN Moderate AR Dysphagia , feeding by G-tube Electrolyte abnormalities Anemia Toxic metabolic encephalopathy likely due to sepsis and ARF HTN PAF Fevers. leukocytosis -resolved PLAN OF CARE PAULIE on vent AC trach changed 8 pm from uncuffed to cuffed Shiley#[address] chest w/out contrast: - Bilateral pleural effusions, right greater than left, with bilateral lower lobe consolidation or volume loss. -Ground-glass densities in the upper lobes bilaterally. This is not specific. -Tracheostomy. -Increased superior mediastinal density. Stability of adenopathy cannot be excluded. -Atherosclerotic change. -Gastrostomy. -Ascites. -Left renal stent with left hydronephrosis and renal atrophy. VQ scan -> low probability for PE worsening resp status was due to need for HD, now after HD started, resp status improving, down to PEEP 5 and AC 20 trach care , pulmonary toilet Mucomyst was prior dc given lots of thin secretions, continue Duoneb prn rapid COVID 19 NGT x3 off Fentanyl gtt since 10/09 FiO2 down to 40% last ABG stable 10/09 CXR 10/14 -increased right pleural fluid and parenchymal disease, doubt PNA likely fluid tolerating CPAP trials with PS 8 FiO2 40% 10/18-for 8 hrs continue CPAP trials as tolerated may continue in subacute upon discharge s/p thoracentesis L pleural effusion 09/26 am -> 900 ml fluid analysis noted, unlikely empyema given small # of WBC fup with fluid cx ( apparently never sent despite orders) cytology -> NGT, no malignant cells aspiration precautions venous Duplex BLE -> NGT DVT prophylaxis pulm toilet, BP regimen optimized as per nephro monitor volumes was on gentle IVF-> dc s/p prior diuretic-Lasix require initiation of HD continue further HD as per nephro with close monitoring of volumes, renal parameters and lytes -per nephro recs abx as per ID- recently pancx 10/14 due to fever and leukocytosis 10/14 BCX NGTD UCX 10/14 + Providencia, MDR, SCX+ Proteus ESBL, Pseudomonas MDR CXR 10/12 stable leuk 10/17, started on meropenem 10/17 -> as per ID recs, CXR 10/17 bilateral pleural effusions demonstrated. Mild interstitial and airspace congestion unchanged. no fevers ECHO with pEF , moderate pulm HTN and moderate AR BP management with current regimen of BB, Cardizem and Hydralazine, remains in SR monitor HH with goal to keep Hgb >7, heme on board on EPO supportive care pain management wound care bowel regimen stable for dc from pulm standpoint dc plan in progress was supposed to be dc today, still no beds case discussed and evaluated by supervising physician Juve Martinez MD 10/23/19 1705: Subjective Allergies: Coded Allergies: No Known Allergies (Unverified , 10/10/17) Assessment/Plan Assessment/Plan Patient seen and examined with SALES ASSISTANT. Agree with above A&P as it reflects our joint deliberations. Yara Castro NP Oct 23, 2019 16:49 Juve Martinez MD Oct 23, 2019 17:05
--- NOTE | 2019-10-23 17:29 | General Progress Note ---
Assessment/Plan Status: stable, other - Mood has improved he is able to smile there is no continuous tearing overall she looks better today energy looking the last several days continue with the same management Status Narrative Patient is awake alert afebrile hemodynamically stable Medication list were given intravenously with converted to oral medication which will be given via G-tube The plan to follow her carefully in regard to her renal function and impossible to avoid dialysis will be initiated once in the residential is frequent measurement of renal function and urine output Was discussed in detail with the extended day teacher From a practical point of view patient is now ready to be discharged any moment once placement will be accomplished LUCAS DONG MD Subjective Constitutional: Reports: no symptoms HEENT: Reports: no symptoms Cardiovascular: Reports: no symptoms Respiratory: Reports: no symptoms Gastrointestinal/Abdominal: Reports: no symptoms Genitourinary: Reports: no symptoms Neurologic/Psychiatric: Reports: no symptoms Allergies: Coded Allergies: No Known Allergies (Unverified , 10/10/17) Objective Last 24 Hour Vital Signs Date Time Temp Pulse Resp B/P (MAP) Pulse Ox O2 Delivery O2 Flow Rate FiO2 10/23/19 16:00 40 10/23/19 16:00 97.8 61 20 145/76 (99) 100 10/23/19 16:00 Mechanical Ventilator Mechanical Ventilator Mechanical Ventilator 10/23/19 16:00 55 10/23/19 15:13 62 21 40 10/23/19 13:29 157/71 10/23/19 12:25 54 19 40 10/23/19 12:00 96.4 59 20 157/71 (99) 100 10/23/19 12:00 40 10/23/19 12:00 Mechanical Ventilator Mechanical Ventilator Mechanical Ventilator 10/23/19 11:50 55 11 40 40 10/23/19 11:31 57 10/23/19 08:21 128/56 10/23/19 08:00 64 10/23/19 08:00 Mechanical Ventilator Mechanical Ventilator Mechanical Ventilator 10/23/19 08:00 40 10/23/19 07:53 98.1 61 20 128/56 (80) 100 10/23/19 07:20 58 20 40 10/23/19 05:26 57 141/66 10/23/19 05:25 141/66 10/23/19 04:00 40 10/23/19 04:00 98.5 59 20 141/66 (91) 97 10/23/19 04:00 Mechanical Ventilator Mechanical Ventilator Mechanical Ventilator 10/23/19 04:00 66 10/23/19 02:50 60 20 40 10/23/19 00:00 98.1 64 18 147/63 (91) 96 10/23/19 00:00 61 10/23/19 00:00 Mechanical Ventilator Mechanical Ventilator Mechanical Ventilator 10/22/19 23:04 59 20 40 10/22/19 22:37 147/63 10/22/19 22:00 54 147/63 10/22/19 20:00 62 10/22/19 20:00 Mechanical Ventilator Mechanical Ventilator Mechanical Ventilator 10/22/19 20:00 40 10/22/19 20:00 98.2 62 20 154/68 (96) 98 10/22/19 19:41 71 22 40 Intake and Output 10/22/19 10/23/19 19:00 07:00 Intake Total 925 ml 530 ml Output Total 375 ml 500 ml Balance 550 ml 30 ml Intake Free Water 390 ml 50 ml IV Total 55 ml Tube Feeding 480 ml 480 ml Output Urine Total 375 ml 500 ml # Bowel Movements 2 1 Laboratory Tests 10/22/19 23:55: POC Whole Blood Glucose 103 10/23/19 05:21: POC Whole Blood Glucose 120H 10/23/19 08:45: Sodium Level 136, Potassium Level 4.1, Chloride Level 100, Carbon Dioxide Level 28, Anion Gap 8, Blood Urea Nitrogen 87H, Creatinine 2.4H, Estimat Glomerular Filtration Rate 21.7, Glucose Level 117H, Calcium Level 8.8, Phosphorus Level 4.0, Magnesium Level 3.2H, Total Bilirubin 0.3, Aspartate Amino Transf (AST/SGOT ) 17, Alanine Aminotransferase (ALT/SGPT) 11L, Alkaline Phosphatase 171H, Total Protein 6.7, Albumin 1.7L, Globulin 5.0, Albumin/Globulin Ratio 0.3L 10/23/19 11:31: POC Whole Blood Glucose 98 10/23/19 15:05: Random Gentamicin Level 2.0 10/23/19 16:23: POC Whole Blood Glucose 87 Height (Feet): 5 Height (Inches): 5.00 Weight (Pounds): 134 General Appearance: no apparent distress, alert EENT: normal ENT inspection Neck: supple Cardiovascular: normal rate, regular rhythm, no gallop/murmur, no JVD Respiratory/Chest: lungs clear, normal breath sounds, no accessory muscle use Abdomen: normal bowel sounds, non tender, soft, no organomegaly, no mass Extremities: non-tender, other - No cyanosis clubbing or edema Neurologic: alert, oriented x 3, responsive, normal mood/affect Lucas Dong MD Oct 23, 2019 17:29
[2019-10-23 20:00] VITALS: BP 118/50
[2019-10-23] MEDS: Miralax 17gm pkt ORAL SCH (21:00)
[2019-10-23] MEDS: Dyna-Hex 2% Top Sol 2oz TOPIC SCH (21:11)
[2019-10-23] MEDS: Epoetin Alfa-EPBX(ESRD on dialysis)10,000 unit/ml vial SUBQ SCH (21:11)
[2019-10-24] VITALS (7 sets, daily range): BP systolic 112–137; BP diastolic 52–64
[2019-10-24] MEDS ORDERED: Gentamicin inj 80 MG in NS 110 ML IVPB ONE (03:00)
[2019-10-24 04:05] LABS: BASOPHILS % (AUTO) 1.2 % (0.0-2.0); EOSINOPHILS % (AUTO) 1.9 % (0.0-3.0); HEMATOCRIT 34.5 % (37.0-47.0); HEMOGLOBIN 11.4 G/DL (12.0-16.0); LYMPHOCYTES % (AUTO) 18.2 % (20.0-45.0); MEAN CORPUSCULAR VOLUME 91 FL (80-99); MONOCYTES % (AUTO) 5.1 % (1.0-10.0); NEUTROPHILS % (AUTO) 73.7 % (45.0-75.0); PLATELET COUNT 378 K/UL (150-450); RED BLOOD COUNT 3.78 M/UL (4.20-5.40); RED CELL DISTRIBUTION WIDTH 14.6 % (11.6-14.8); WHITE BLOOD COUNT 9.9 K/UL (4.8-10.8)
[2019-10-24] MEDS: HYDROmorphone 2mg tab GT SCH ×3 (05:14→21:26)
[2019-10-24] MEDS: Metoclopramide 10mg/10ml Liq GT SCH ×3 (05:14→17:33)
[2019-10-24] MEDS: Docusate 100mg/10ml Liq GT SCH ×3 (05:14→21:25)
[2019-10-24] MEDS: Minoxidil 2.5mg tab ORAL SCH ×3 (05:15→21:25)
[2019-10-24] MEDS: NovoLOG Insulin Flexpen SUBQ SCH ×3 (05:15→17:02)
[2019-10-24] MEDS: dilTIAZem HCl 90mg tab GT SCH (05:15)
--- NOTE | 2019-10-24 07:22 | Hematology/Onc Progress Note ---
Assessment/Plan Assessment/Plan Assessment and Recs # Leukocytosis, now with gram positive bacteremias well as pna noted --> historically --> PPM site (pocket) infection (redness and pain, bacteremia) and likely pocket abscess - no vegetation seen on ABBIE --> is s'p pm removal and also pocket infection is better --> per cards recs in re to tach/davis --> wbc 15-->19-->17-->15-->13->12-->13-->12>13-->18-->9-->7-->16-->17->9.4-->11 -->11.4 --> ABX cefepime/levaquin--> vanc/angelo-> daptomycin-->Angelo --> ID recs are noted # Anemia of chronic disease due to underlying chronic medical issues, multifactorial --> Anemia workup has been reviewed, cw acd --> No evidence of hemolysis is noted, peripheral smear has been reviewed. --> Hgb goal >7. Transfuse prn. --> Epogen started --> Medications have been reviewed --> low threshold for gi evaluation in case has occult + --> hgb 7.1-->7.8-->8.9->9.2-->8.5-->9.7-->10-->8.8-->9.6-->8.7->8.6-->7.2->8.7- >9.1-->9.2-->9-->8.7-->9.3-->9.8-->10->10.3-->10.8->10.5->10.7 --> 1 unit prbc 09/27 # Thrombocytois is likely reactive process, is s/p infection --> plt trend 610k-->706k-->354 --> p smear reviewed # Acute hypoxic respiratory failure s/p intubation 11/23- ?ARDS --> on vent/trach # Gram positive bacteremia- real bacteremia- 2ry to above and probable PNA --> per id care # JAVIER initially >2 --> on ivfs # Elevated d-dimer --> venous duplex and v/q scan neg --> negative results # Dysphagia s/p peg # Thoracic aortic dissection s/p repair early 2017 # Psychiatric history on ativan/haldol # [place] # Dvt ppx --> heparin sq The timing of this note does not necessarily reflect the time of the patient was seen. Greatly appreciate consultation. Subjective HEENT: Denies: no symptoms, eye pain, blurred vision, tearing, double vision, ear pain, ear discharge, nose pain, nose congestion, throat pain, throat swelling, mouth pain, mouth swelling, other Respiratory: Denies: no symptoms, cough, shortness of breath, SOB with excertion, SOB at rest, sputum, wheezing, other Gastrointestinal/Abdominal: Denies: no symptoms, abdomen distended, abdominal pain, black stools, tarry stools, blood in stool, constipated, diarrhea, difficulty swallowing, nausea, poor appetite, poor fluid intake, rectal bleeding , vomiting, other Genitourinary: Denies: no symptoms, burning, discharge, frequency, flank pain, hematuria, incontinence, pain, urgency, other Neurologic/Psychiatric: Denies: no symptoms, anxiety, depressed, emotional problems, headache, numbness, paresthesia, pre-existing deficit, seizure, tingling, tremors, weakness, other Endocrine: Denies: no symptoms, excessive sweating, flushing, intolerance to cold, intolerance to heat, increased hunger, increased thirst, increased urine, unexplained weight gain, unexplained weight loss, other Allergies: Coded Allergies: No Known Allergies (Unverified , 10/10/17) Subjective 09/16 on vent now, consulted in am pulm, on vent setting, labs noted, hep sq 09/17 meds noted, cbc noted, labs noted, no bleeding 09/18 is to undergo potential v/q scan given abg, labs noted, resless, on ativan, to get haldol today, roman ramesh 09/19 remains agitated, covering, with sacral wound seeping, likely cause of anemia, roman ramesh 09/26 restless, remains agitated, gtube ripped, eval with rn, and ifeoma consulted 09/27 remains on vent, agitated, seen by gi, hgb low, roman George to transfuse 1 unit prbc 09/28 meds noted, no bleeding, on vent, s/p blood tranfusion, cbc pending, roman rn 09/29 remains in the icu, roman rn in the am, agitated, on versed, fentanyl, restraints 09/30 in icu, trach to vent, on gtube feeds, fentanyl, agitated 10/01 in icu, roman Ayoub rn, no bleeding, sleeping, labs noted, hgb >9 10/02 sedated in icu, is on vent, roman rn, more alert and more conversive with face grimaces 10/03 labs have been reviewed, no bleeding, icu, meds reviewed, on fentanyl and versed, to consult psych 10/05 remains on fentanyl, also with restraints, no bleeding, cbc ordered 10/06 remains obtunded, though reactive when proded, labs pending from am 10/07 hypertensive, asleep, no bleeding, roman rn, no major night sweats\ 10/08 formula leaking from gtube site, no bleeding, with some minor residual 10/09 remains on gtube feeds, on lactulose, no major changes, confused but nods 10/10 labs reviewed, lactulose discontinued as having diarrhea, no bleeding 10/12 meds reviewed, no bleeding, heparin given, roman Starr rn in am, comfortable 10/13 labs are noted, no bleeding, cbc is ordered for today, somewhat agitated 10/14 has been complaining of pain and frowning, no bleeding, hgb reviewed 10/15 hgb 10.4, no bleeding, stool is hard, difficult to collect for c.diff 10/16 restless, agitated overnight, getting haldol prn, roman rn at bedside 10/17 labs are noted, no bleeding, meds reviewed, wbc 17k, on abx 10/19 labs are noted, no bleeding, meds noted, no major changes, with v/t, peg 10/20 on vent, with gtube and raymond, no bleeding, labs are noted 10/21 is trach to vent, with gtube in place, left ij hd in place, no bleeding 10/22 labs are noted, have been revierwed, no bleeding or chills, meds noted 10/23 labs reviewed, no bleeding, labs reviewed, no major changes overnight Objective Objective Current Medications Medications (Trade) Dose Ordered Sig/Penny Route PRN Reason Start Time Stop Time Status Last Admin Dose Admin Acetaminophen (Tylenol) 500 mg Q4H PRN GT Mild Pain (Pain Scale 1-3) 10/23/19 14:45 11/16/19 18:44 Ascorbic Acid (Vitamin C) 500 mg DAILY ORAL 10/11/19 09:00 11/05/19 08:59 10/23/19 08:20 Chlorhexidine Gluconate (Ling-Hex 2%) 1 applic DAILY@2000 TOPIC 10/11/19 20:00 12/22/19 19:59 10/23/19 21:11 Clonidine HCl (Catapres TTS-3) 1 patch QWEEK TDERMAL 10/14/19 12:00 01/12/20 11:59 10/21/19 12:26 Dextrose (Dextrose 50%) 25 ml Q30M PRN IV Hypoglycemia 10/11/19 04:30 01/03/20 18:29 Dextrose (Dextrose 50%) 50 ml Q30M PRN IV Hypoglycemia 10/11/19 04:30 01/03/20 18:29 Diltiazem HCl (Cardizem Tab) 90 mg Q8HR GT 10/16/19 14:00 11/09/19 11:59 10/19/19 13:16 Docusate Sodium (Colace) 100 mg Q8HR GT 10/14/19 14:01 11/13/19 14:00 10/24/19 05:14 Epoetin Gelacio (Epoetin Gelacio(ESRD on dialysis)) 10,000 unit MON-MON-MON SUBQ 10/14/19 21:00 01/12/20 20:59 10/23/19 21:11 Gentamicin Protocol (Gentamicin pharmacy to dose) 1 ea DAILY PRN MISC Per rx protocol 10/22/19 13:45 11/21/19 13:44 Haloperidol (Haldol) 5 mg BIDPRN PRN GT Agitation 10/23/19 17:00 12/07/19 16:59 Heparin Sodium (Porcine) (Heparin 5000 units/ml) 5,000 units EVERY 12 HOURS SUBQ 10/11/19 09:00 10/30/19 08:59 10/23/19 21:13 Hydromorphone HCl (Dilaudid) 2 mg Q8HR GT 10/23/19 22:00 10/30/19 12:59 10/24/19 05:14 Insulin Aspart (NovoLOG) Q6HR SUBQ 10/11/19 06:00 01/03/20 20:59 Lansoprazole (Prevacid) 30 mg Q12HR GT 10/11/19 09:00 10/27/19 20:59 10/23/19 21:11 Lisinopril (PriniviL) 20 mg BID GT 10/11/19 09:00 11/08/19 17:59 10/23/19 17:25 Metoclopramide HCl (Reglan) 5 mg EVERY 6 HOURS GT 10/11/19 06:00 11/08/19 11:59 10/24/19 05:14 Metolazone (Zaroxolyn) 5 mg DAILY GT 10/23/19 09:00 11/22/19 08:59 10/23/19 08:20 Minoxidil (Loniten) 5 mg Q8HR ORAL 10/22/19 14:00 01/08/20 13:59 10/23/19 21:11 Polyethylene Glycol (Miralax) 17 gm BEDTIME ORAL 10/11/19 21:00 10/31/19 20:59 10/21/19 20:20 Potassium Chloride (K-Dur) 40 meq TWICE A DAY GT 10/21/19 11:15 01/19/20 11:14 10/23/19 17:25 Risperidone (RisperDAL) 2 mg BEDTIME ORAL 10/11/19 21:00 11/19/19 20:59 10/23/19 21:11 Sorbitol (sorbitoL) 30 ml EVERY 6 HOURS PRN GT Constipation 10/11/19 06:00 10/29/19 17:59 Vitamin B Complex/ Vit C/Folic Acid (Nephrovite) 1 tab DAILY ORAL 10/11/19 09:00 11/05/19 08:59 10/23/19 08:20 Last 24 Hour Vital Signs Date Time Temp Pulse Resp B/P (MAP) Pulse Ox O2 Delivery O2 Flow Rate FiO2 10/24/19 07:01 59 20 40 10/24/19 05:15 120/57 10/24/19 05:15 57 120/57 10/24/19 04:00 98.1 57 20 128/56 (80) 100 10/24/19 04:00 40 10/24/19 04:00 Mechanical Ventilator Mechanical Ventilator Mechanical Ventilator 10/24/19 03:39 57 10/24/19 02:55 52 20 40 10/24/19 00:00 98.2 53 20 119/57 (77) 100 10/24/19 00:00 Mechanical Ventilator Mechanical Ventilator Mechanical Ventilator 10/24/19 00:00 56 10/23/19 23:20 54 20 40 10/23/19 21:12 57 135/78 10/23/19 21:11 135/78 10/23/19 20:00 97.7 58 20 118/50 (72) 100 10/23/19 20:00 Mechanical Ventilator Mechanical Ventilator Mechanical Ventilator 10/23/19 20:00 40 10/23/19 19:05 55 20 40 10/23/19 19:03 55 10/23/19 17:25 132/62 10/23/19 16:00 40 10/23/19 16:00 97.8 61 20 145/76 (99) 100 10/23/19 16:00 Mechanical Ventilator Mechanical Ventilator Mechanical Ventilator 10/23/19 16:00 55 10/23/19 15:13 62 21 40 10/23/19 13:29 157/71 10/23/19 12:25 54 19 40 10/23/19 12:00 96.4 59 20 157/71 (99) 100 10/23/19 12:00 40 10/23/19 12:00 Mechanical Ventilator Mechanical Ventilator Mechanical Ventilator 10/23/19 11:50 55 11 40 40 10/23/19 11:31 57 10/23/19 08:21 128/56 10/23/19 08:00 64 10/23/19 08:00 Mechanical Ventilator Mechanical Ventilator Mechanical Ventilator 10/23/19 08:00 40 10/23/19 07:53 98.1 61 20 128/56 (80) 100 10/23/19 07:20 58 20 40 10/23/19 05:26 57 141/66 10/23/19 05:25 141/66 10/23/19 04:00 40 10/23/19 04:00 98.5 59 20 141/66 (91) 97 10/23/19 04:00 Mechanical Ventilator Mechanical Ventilator Mechanical Ventilator 10/23/19 04:00 66 10/23/19 02:50 60 20 40 10/23/19 00:00 98.1 64 18 147/63 (91) 96 10/23/19 00:00 61 10/23/19 00:00 Mechanical Ventilator Mechanical Ventilator Mechanical Ventilator 10/22/19 23:04 59 20 40 10/22/19 22:37 147/63 10/22/19 22:00 54 147/63 10/22/19 20:00 62 10/22/19 20:00 Mechanical Ventilator Mechanical Ventilator Mechanical Ventilator 10/22/19 20:00 40 10/22/19 20:00 98.2 62 20 154/68 (96) 98 10/22/19 19:41 71 22 40 10/22/19 17:13 148/64 10/22/19 16:00 Mechanical Ventilator Mechanical Ventilator Mechanical Ventilator 10/22/19 16:00 40 10/22/19 16:00 98.2 51 21 148/64 (92) 98 10/22/19 15:52 52 10/22/19 14:57 78 15 40 10/22/19 13:07 145/88 10/22/19 13:07 57 145/88 10/22/19 12:04 98.8 10/22/19 12:00 40 10/22/19 12:00 Mechanical Ventilator Mechanical Ventilator Mechanical Ventilator 10/22/19 12:00 99.2 54 20 145/88 (107) 97 10/22/19 12:00 57 10/22/19 10:56 61 21 40 10/22/19 08:53 52 147/72 10/22/19 08:53 147/72 10/22/19 08:00 Mechanical Ventilator Mechanical Ventilator Mechanical Ventilator 10/22/19 08:00 40 10/22/19 08:00 98.8 59 20 147/72 (97) 100 10/22/19 08:00 53 Intake and Output 10/23/19 10/24/19 19:00 07:00 Intake Total 690 ml 640 ml Output Total 400 ml 200 ml Balance 290 ml 440 ml Intake Free Water 250 ml 160 ml Tube Feeding 440 ml 480 ml Output Urine Total 400 ml 200 ml # Bowel Movements 1 Labs Test 10/21/19 16:06 10/21/19 23:41 10/22/19 03:10 10/22/19 05:03 POC Whole Blood Glucose 104 MG/DL (74-106) 106 MG/DL (74-106) 92 MG/DL (74-106) White Blood Count 11.3 K/UL (4.8-10.8) Red Blood Count 3.55 M/UL (4.20-5.40) Hemoglobin 10.7 G/DL (12.0-16.0) Hematocrit 32.7 % (37.0-47.0) Mean Corpuscular Volume 92 FL (80-99) Mean Corpuscular Hemoglobin 30.0 PG (27.0-31.0) Mean Corpuscular Hemoglobin Concent 32.6 G/DL (32.0-36.0) Red Cell Distribution Width 14.4 % (11.6-14.8) Platelet Count 383 K/UL (150-450) Mean Platelet Volume 4.9 FL (6.5-10.1) Neutrophils (%) (Auto) 74.3 % (45.0-75.0) Lymphocytes (%) (Auto) 18.5 % (20.0-45.0) Monocytes (%) (Auto) 5.1 % (1.0-10.0) Eosinophils (%) (Auto) 1.4 % (0.0-3.0) Basophils (%) (Auto) 0.7 % (0.0-2.0) Sodium Level 135 MMOL/L (136-145) Potassium Level 4.0 MMOL/L (3.5-5.1) Chloride Level 99 MMOL/L (98-107) Carbon Dioxide Level 29 MMOL/L (21-32) Anion Gap 7 mmol/L (5-15) Blood Urea Nitrogen 69 mg/dL (7-18) Creatinine 2.2 MG/DL (0.55-1.30) Estimat Glomerular Filtration Rate 23.9 mL/min (>60) Glucose Level 100 MG/DL (74-106) Calcium Level 9.1 MG/DL (8.5-10.1) Phosphorus Level 3.7 MG/DL (2.5-4.9) Magnesium Level 3.0 MG/DL (1.8-2.4) Total Bilirubin 0.4 MG/DL (0.2-1.0) Aspartate Amino Transf (AST/SGOT) 23 U/L (15-37) Alanine Aminotransferase (ALT/SGPT) 12 U/L (12-78) Alkaline Phosphatase 174 U/L (46-116) Total Protein 6.8 G/DL (6.4-8.2) Albumin 1.8 G/DL (3.4-5.0) Globulin 5.0 g/dL Albumin/Globulin Ratio 0.4 (1.0-2.7) Test 10/22/19 11:32 10/22/19 16:48 10/22/19 23:55 10/23/19 05:21 POC Whole Blood Glucose 113 MG/DL (74-106) 103 MG/DL (74-106) 120 MG/DL (74-106) Test 10/23/19 08:45 10/23/19 11:31 10/23/19 15:05 10/23/19 16:23 Sodium Level 136 MMOL/L (136-145) Potassium Level 4.1 MMOL/L (3.5-5.1) Chloride Level 100 MMOL/L (98-107) Carbon Dioxide Level 28 MMOL/L (21-32) Anion Gap 8 mmol/L (5-15) Blood Urea Nitrogen 87 mg/dL (7-18) Creatinine 2.4 MG/DL (0.55-1.30) Estimat Glomerular Filtration Rate 21.7 mL/min (>60) Glucose Level 117 MG/DL (74-106) Calcium Level 8.8 MG/DL (8.5-10.1) Phosphorus Level 4.0 MG/DL (2.5-4.9) Magnesium Level 3.2 MG/DL (1.8-2.4) Total Bilirubin 0.3 MG/DL (0.2-1.0) Aspartate Amino Transf (AST/SGOT) 17 U/L (15-37) Alanine Aminotransferase (ALT/SGPT) 11 U/L (12-78) Alkaline Phosphatase 171 U/L (46-116) Total Protein 6.7 G/DL (6.4-8.2) Albumin 1.7 G/DL (3.4-5.0) Globulin 5.0 g/dL Albumin/Globulin Ratio 0.3 (1.0-2.7) POC Whole Blood Glucose 98 MG/DL (74-106) 87 MG/DL (74-106) Random Gentamicin Level 2.0 ug/mL Test 10/23/19 23:25 10/24/19 02:50 10/24/19 05:13 POC Whole Blood Glucose 103 MG/DL (74-106) 110 MG/DL (74-106) White Blood Count 9.9 K/UL (4.8-10.8) Red Blood Count 3.78 M/UL (4.20-5.40) Hemoglobin 11.4 G/DL (12.0-16.0) Hematocrit 34.5 % (37.0-47.0) Mean Corpuscular Volume 91 FL (80-99) Mean Corpuscular Hemoglobin 30.1 PG (27.0-31.0) Mean Corpuscular Hemoglobin Concent 33.0 G/DL (32.0-36.0) Red Cell Distribution Width 14.6 % (11.6-14.8) Platelet Count 378 K/UL (150-450) Mean Platelet Volume 4.8 FL (6.5-10.1) Neutrophils (%) (Auto) 73.7 % (45.0-75.0) Lymphocytes (%) (Auto) 18.2 % (20.0-45.0) Monocytes (%) (Auto) 5.1 % (1.0-10.0) Eosinophils (%) (Auto) 1.9 % (0.0-3.0) Basophils (%) (Auto) 1.2 % (0.0-2.0) Height (Feet): 5 Height (Inches): 5.00 Weight (Pounds): 134 Objective Physical Exam: Vitals: reviewed General: NAD HEENT: nc, at Neck: supple ++tracn/vent Chest: clear breath sounds bilaterally Cardiovascular: RRR, no s3, s4 Abdomen: soft, nontender, nd +gtube Extremities: no cce, normal range of motion Neuro: alert Evan Muhammad MD Oct 24, 2019 07:22
[2019-10-24 08:09] LABS: ALANINE AMINOTRANSFERASE 13 U/L (12-78); ALBUMIN 1.7 G/DL (3.4-5.0); ALBUMIN/GLOBULIN RATIO 0.3 (1.0-2.7); ALKALINE PHOSPHATASE 163 U/L (46-116); ANION GAP 10 mmol/L (5-15); ASPARTATE AMINO TRANSFERASE 22 U/L (15-37); BILIRUBIN,TOTAL 0.3 MG/DL (0.2-1.0); BLOOD UREA NITROGEN 93 mg/dL (7-18); CALCIUM 9.2 MG/DL (8.5-10.1); CARBON DIOXIDE 26 MMOL/L (21-32); CHLORIDE 100 MMOL/L (98-107); CREATININE 2.6 MG/DL (0.55-1.30); PHOSPHORUS 4.7 MG/DL (2.5-4.9); POTASSIUM 4.2 MMOL/L (3.5-5.1); SODIUM 136 MMOL/L (136-145)
[2019-10-24] MEDS: Nephrovite tab (Rena-Vite) ORAL SCH (08:31)
[2019-10-24] MEDS: Heparin 5000 units/ml inj SUBQ SCH ×2 (08:31→21:27)
[2019-10-24] MEDS: Lisinopril 20mg tab GT SCH ×2 (08:31→17:33)
[2019-10-24] MEDS: Ascorbic Acid 500mg tab ORAL SCH (08:32)
--- NOTE | 2019-10-24 09:24 | General Progress Note ---
Assessment/Plan Problem List: (1) S/P aortic dissection repair ICD Codes: Z98.890 - Other specified postprocedural states SNOMED: 313956742, 682105961 (2) Sacral decubitus ulcer, stage IV ICD Codes: L89.154 - Pressure ulcer of sacral region, stage 4 SNOMED: 820806715, 885111480 (3) Anemia ICD Codes: D64.9 - Anemia, unspecified SNOMED: 070978366 (4) GT CLOGGED (5) Feeding by G-tube ICD Codes: Z93.1 - Gastrostomy status SNOMED: 524878312, 157029199 (6) Tracheostomy in place ICD Codes: Z93.0 - Tracheostomy status SNOMED: 731927852 (7) Pacemaker ICD Codes: Z95.0 - Presence of cardiac pacemaker SNOMED: 851900928 (8) Chronic respiratory failure ICD Codes: J96.10 - Chronic respiratory failure, unspecified whether with hypoxia or hypercapnia SNOMED: 41201601 Status: stable, other - Mood has improved he is able to smile there is no continuous tearing overall she looks better today energy looking the last several days continue with the same management Assessment/Plan: GTF min GT leak on reglan monitor for residuals repeat labs abx per ID respiratory care dc planning per primary team Subjective ROS Limited/Unobtainable: No Allergies: Coded Allergies: No Known Allergies (Unverified , 10/10/17) Objective Last 24 Hour Vital Signs Date Time Temp Pulse Resp B/P (MAP) Pulse Ox O2 Delivery O2 Flow Rate FiO2 10/24/19 08:31 126/58 10/24/19 07:01 59 20 40 10/24/19 05:15 120/57 10/24/19 05:15 57 120/57 10/24/19 04:00 98.1 57 20 128/56 (80) 100 10/24/19 04:00 40 10/24/19 04:00 Mechanical Ventilator Mechanical Ventilator Mechanical Ventilator 10/24/19 03:39 57 10/24/19 02:55 52 20 40 10/24/19 00:00 98.2 53 20 119/57 (77) 100 10/24/19 00:00 Mechanical Ventilator Mechanical Ventilator Mechanical Ventilator 10/24/19 00:00 56 10/23/19 23:20 54 20 40 10/23/19 21:12 57 135/78 10/23/19 21:11 135/78 10/23/19 20:00 97.7 58 20 118/50 (72) 100 10/23/19 20:00 Mechanical Ventilator Mechanical Ventilator Mechanical Ventilator 10/23/19 20:00 40 10/23/19 19:05 55 20 40 10/23/19 19:03 55 10/23/19 17:25 132/62 10/23/19 16:00 40 10/23/19 16:00 97.8 61 20 145/76 (99) 100 10/23/19 16:00 Mechanical Ventilator Mechanical Ventilator Mechanical Ventilator 10/23/19 16:00 55 10/23/19 15:13 62 21 40 10/23/19 13:29 157/71 10/23/19 12:25 54 19 40 10/23/19 12:00 96.4 59 20 157/71 (99) 100 10/23/19 12:00 40 10/23/19 12:00 Mechanical Ventilator Mechanical Ventilator Mechanical Ventilator 10/23/19 11:50 55 11 40 40 10/23/19 11:31 57 Intake and Output 10/23/19 10/24/19 19:00 07:00 Intake Total 690 ml 640 ml Output Total 400 ml 200 ml Balance 290 ml 440 ml Intake Free Water 250 ml 160 ml Tube Feeding 440 ml 480 ml Output Urine Total 400 ml 200 ml # Bowel Movements 1 Laboratory Tests 10/23/19 11:31: POC Whole Blood Glucose 98 10/23/19 15:05: Random Gentamicin Level 2.0 10/23/19 16:23: POC Whole Blood Glucose 87 10/23/19 23:25: POC Whole Blood Glucose 103 10/24/19 02:50: White Blood Count 9.9, Red Blood Count 3.78L, Hemoglobin 11.4L, Hematocrit 34.5L , Mean Corpuscular Volume 91, Mean Corpuscular Hemoglobin 30.1, Mean Corpuscular Hemoglobin Concent 33.0, Red Cell Distribution Width 14.6, Platelet Count 378, Mean Platelet Volume 4.8L, Neutrophils (%) (Auto) 73.7, Lymphocytes ( %) (Auto) 18.2L, Monocytes (%) (Auto) 5.1, Eosinophils (%) (Auto) 1.9, Basophils (%) (Auto) 1.2, Sodium Level 136, Potassium Level 4.2, Chloride Level 100, Carbon Dioxide Level 26, Anion Gap 10, Blood Urea Nitrogen 93H, Creatinine 2.6H, Estimat Glomerular Filtration Rate 19.7, Glucose Level 114H, Calcium Level 9.2, Phosphorus Level 4.7, Magnesium Level 3.3H, Total Bilirubin 0.3, Aspartate Amino Transf (AST/SGOT) 22, Alanine Aminotransferase (ALT/SGPT) 13, Alkaline Phosphatase 163H, Total Protein 6.6, Albumin 1.7L, Globulin 4.9, Albumin/Globulin Ratio 0.3L 10/24/19 05:13: POC Whole Blood Glucose 110H Height (Feet): 5 Height (Inches): 5.00 Weight (Pounds): 134 General Appearance: no apparent distress EENT: normal ENT inspection Neck: supple Cardiovascular: normal rate Respiratory/Chest: decreased breath sounds Abdomen: hypoactive bowel sounds Extremities: non-tender Inder Mccauley MD Oct 24, 2019 09:24
--- NOTE | 2019-10-24 09:51 | Nephrology Progress Note ---
Assessment/Plan Problem List: (1) JAVIER (acute kidney injury) (2) Renal failure (ARF), acute on chronic (3) Dehydration (4) Electrolyte imbalance (5) Anemia (6) Respiratory failure, acute and chronic (7) COPD with exacerbation Assessment Patient is presented with sepsis and pneumonia and UTI Patient has acute renal failure, possible underlying chronic kidney failure Severe anemia Electrolyte imbalances: Hyponatremia, hypo-kalemia Chronic respiratory failure, COPD exacerbation Plan October 23: Discharge canceled due to logistic reasons. Serum creatinine going up. Will adjust blood pressure medications. Down on Zaroxolyn dose. Check chemistry panel tomorrow. Continue to watch the heart rate closely. October 22: Patient last dialysis October 16. Serum creatinine is creeping up. Clinically the patient is stable. Urine output remains reasonable. Continue current management. Upon discharge patient needs to be followed authorization specialist and arrange for as needed dialysis and ultrafiltration. Discussed with ERASMO Sen. October 21: Patient's last dialysis was October 16. Patient has been responding to Zaroxolyn, with decent urine output, and serum creatinine being stable. At this time will abort dialysis plan and continue per current management. Blood pressure medication adjusted. October 20: Patient appears to be responding to Zaroxolyn. Will repeat 10 mg Zaroxolyn via GT today. Continue monitor renal parameters. Potassium supplements given. Dialysis as needed. October 19: Patient responded to Zaroxolyn. Urine output increased. Will try 10 mg Zaroxolyn again today. Check renal parameters tomorrow. Dialysis as needed. October 18: Last dialysis October 16. Serum creatinine rising. Oliguria persists. Continue to monitor renal parameters and dialysis as needed. October 17: It appears that the patient received dialysis last night and the dialysis nurse changed her mind about delaying to today. Today's labs reviewed. Electrolyte abnormalities corrected. Continue per consultants. October 16: Late note entry due to system problem at the [facility] today.Patient due for dialysis today. Dialysis nurse informed that due to few emergencies if she can be done tomorrow. No chemistry panel for today." We will order labs on dialysis tomorrow. October 2: Last dialysis October 13. Labs were reviewed. Urine output very low. Will dialyze and ultrafiltrate tomorrow. Per consultants. October 14: Dialyzed yesterday. Labs reviewed. Medication list reviewed. Continue per consultants. October 13: Patient seen on dialysis. Tolerating well. Will check labs tomorrow. October 12: Blood pressure stable. Labs reviewed. BUN rising. Remains oliguric. Dialysis tomorrow. October 11: Blood pressure is stable. Labs reviewed. Continue as is. Dialysis as needed October 10: Blood pressure medication adjusted. Will check lab tomorrow. Dialysis as needed. Urine output remains low. October 09: Lab reviewed. Remains oliguric. Will give trial of Zaroxolyn. Continue per consultants. Adjust blood pressure medication. Will add Zaroxolyn and increased dose of Cardizem and add clonidine patch for better BP control October 08: Labs reviewed. Patient oliguric. Blood pressure elevated, BP medication adjusted. Recheck lab tomorrow. Dialysis and ultrafiltration as needed. October 07: Labs reviewed. Patient was dialyzed yesterday. 3000 mL fluid was removed. Patient appears to need periodic (twice a week minimum) dialysis for ultrafiltration. Continue to monitor renal parameters. Continue per consultants. October 06: Labs reviewed. Discussed with pulmonary. Will attempt dialysis and ultrafiltration. Continue per consultants. October 05: Lab reviewed. Serum creatinine rising. Blood pressure stabilized. Will recheck lab tomorrow. Dialysis as needed. Will increase lisinopril to 10 mg twice a day. October 04: Lab reviewed. Blood pressure medication adjusted since the patient is hypotensive. Serum creatinine rising. Recheck labs tomorrow. Dialysis as needed. Discussed with RN. October 03: Lab reviewed. Zestril added to BP medication. 1 dose of Seroquel ordered for agitation. Continue to monitor renal parameters. Continue per consultants. October 02: Lab reviewed. Potassium supplement IV given. 3% saline 250 cc ordered. Responded well to Zaroxolyn yesterday. Will continue to monitor electrolytes and renal parameters. Will increase minoxidil to 2.5 mg every 6 hours. October 01: Labs reviewed. Potassium supplement given. Last dialysis September 29. Serum creatinine rising gradually. Urine output very low. Patient appears to continue to need dialysis at least twice a week. Blood pressure still running high I will switch the hydralazine to minoxidil. We will give 1 dose of Zaroxolyn 10 mg today. Will check renal parameters tomorrow. September 30: Patient dialyzed yesterday. 3 L removed. Labs reviewed. Potassium supplement given. Continue per consultants. It appears that the patient required dialysis 2-3 times a week. September 29: Lab reviewed. Chest x-ray result noted. Continues to have pulmonary congestion. Urine output low. Will attempt dialysis again today with ultrafiltration. September 28: Lab reviewed. ABG reviewed. Potassium supplement given. No dialysis at this point. Will eval patient status and renal parameters daily. September 27: Lab reviewed. Last dialysis September 25. Continue to monitor renal parameters. Hemodialysis as needed. September 26: Lab reviewed. Dialyzed yesterday. Potassium supplement given. Medication list reviewed. Will observe renal parameters and arrange for dialysis as needed. September 25: Lab reviewed. Currently on hemodialysis. Tolerating well. Stable from renal standpoint of view. Blood pressure medication adjusted by increasing hydralazine. September 24: Lab reviewed. ABG reviewed. Both lab and ABG much improved. Patient was dialyzed yesterday. We will attempt dialysis tomorrow again. Will adjust that blood pressure medication dosages. September 23: Lab reviewed. ABG reviewed. Patient acidotic. IV bicarb 1 dose is given. Patient has dialysis catheter. Will order dialysis for ultrafiltration and correction of acid-base. Discussed with ERASMO Mohr. September 22: Labs reviewed. Potassium high. Kayexalate and Reglan given. Will discuss with the consultants regarding initiation of dialysis. September 21: Patient is being sedated. Labs reviewed. Potassium supplement discontinued. GFR 20. Continue per current treatment plan. Dialysis and ultrafiltration is a consideration. September 20: Patient periodically agitated. Labs reviewed. Creatinine 2.4. Medication reviewed. Continue per consultants. Calculated creatinine clearance 21. May need isolated ultrafiltration on dialysis. Will discuss with PMD. Meanwhile hemoglobin is lower, defer transfusion to PMD. September 19: DC IV fluid. Zaroxolyn via GT tube. Potassium supplement. Attempt to diurese. Chest CT as bilateral pleural effusion. If diuresis unsuccessful, will consider dialysis and ultrafiltration. September 18: Potassium supplement IV given. Hemoglobin stable. Patient remains full code. Continue per consultants. Previously: Potassium supplement IV Slow IV hydration Epogen subcu Adjust blood pressure medication IV fluid, rate adjusted Norman catheter, intake and output Monitor renal parameters Avoid nephrotoxic's Antibiotics Per orders 2D echocardiogram Kidney ultrasound Subjective ROS Limited/Unobtainable: Yes Objective Objective Last 24 Hour Vital Signs Date Time Temp Pulse Resp B/P (MAP) Pulse Ox O2 Delivery O2 Flow Rate FiO2 10/24/19 08:31 126/58 10/24/19 07:01 59 20 40 10/24/19 05:15 120/57 10/24/19 05:15 57 120/57 10/24/19 04:00 98.1 57 20 128/56 (80) 100 10/24/19 04:00 40 10/24/19 04:00 Mechanical Ventilator Mechanical Ventilator Mechanical Ventilator 10/24/19 03:39 57 10/24/19 02:55 52 20 40 10/24/19 00:00 98.2 53 20 119/57 (77) 100 10/24/19 00:00 Mechanical Ventilator Mechanical Ventilator Mechanical Ventilator 10/24/19 00:00 56 10/23/19 23:20 54 20 40 10/23/19 21:12 57 135/78 10/23/19 21:11 135/78 10/23/19 20:00 97.7 58 20 118/50 (72) 100 10/23/19 20:00 Mechanical Ventilator Mechanical Ventilator Mechanical Ventilator 10/23/19 20:00 40 10/23/19 19:05 55 20 40 10/23/19 19:03 55 10/23/19 17:25 132/62 10/23/19 16:00 40 10/23/19 16:00 97.8 61 20 145/76 (99) 100 10/23/19 16:00 Mechanical Ventilator Mechanical Ventilator Mechanical Ventilator 10/23/19 16:00 55 10/23/19 15:13 62 21 40 10/23/19 13:29 157/71 10/23/19 12:25 54 19 40 10/23/19 12:00 96.4 59 20 157/71 (99) 100 10/23/19 12:00 40 10/23/19 12:00 Mechanical Ventilator Mechanical Ventilator Mechanical Ventilator 10/23/19 11:50 55 11 40 40 10/23/19 11:31 57 Intake and Output 10/23/19 10/24/19 19:00 07:00 Intake Total 690 ml 640 ml Output Total 400 ml 200 ml Balance 290 ml 440 ml Intake Free Water 250 ml 160 ml Tube Feeding 440 ml 480 ml Output Urine Total 400 ml 200 ml # Bowel Movements 1 Laboratory Tests 10/23/19 11:31: POC Whole Blood Glucose 98 10/23/19 15:05: Random Gentamicin Level 2.0 10/23/19 16:23: POC Whole Blood Glucose 87 10/23/19 23:25: POC Whole Blood Glucose 103 10/24/19 02:50: White Blood Count 9.9, Red Blood Count 3.78L, Hemoglobin 11.4L, Hematocrit 34.5L , Mean Corpuscular Volume 91, Mean Corpuscular Hemoglobin 30.1, Mean Corpuscular Hemoglobin Concent 33.0, Red Cell Distribution Width 14.6, Platelet Count 378, Mean Platelet Volume 4.8L, Neutrophils (%) (Auto) 73.7, Lymphocytes ( %) (Auto) 18.2L, Monocytes (%) (Auto) 5.1, Eosinophils (%) (Auto) 1.9, Basophils (%) (Auto) 1.2, Sodium Level 136, Potassium Level 4.2, Chloride Level 100, Carbon Dioxide Level 26, Anion Gap 10, Blood Urea Nitrogen 93H, Creatinine 2.6H, Estimat Glomerular Filtration Rate 19.7, Glucose Level 114H, Calcium Level 9.2, Phosphorus Level 4.7, Magnesium Level 3.3H, Total Bilirubin 0.3, Aspartate Amino Transf (AST/SGOT) 22, Alanine Aminotransferase (ALT/SGPT) 13, Alkaline Phosphatase 163H, Total Protein 6.6, Albumin 1.7L, Globulin 4.9, Albumin/Globulin Ratio 0.3L 10/24/19 05:13: POC Whole Blood Glucose 110H Height (Feet): 5 Height (Inches): 5.00 Weight (Pounds): 134 General Appearance: no apparent distress EENT: other - Trach to mechanical ventilation Cardiovascular: normal rate, bradycardia - Rate 55-60 Respiratory/Chest: decreased breath sounds Abdomen: soft, distended Objective No change Johnny Houston MD Oct 24, 2019 09:51
--- NOTE | 2019-10-24 10:30 | Surgery Progress Note ---
Surgery Progress Note Subjective Symptoms: improved, tolerating diet, passing flatus Objective Last 24 Hour Vital Signs Date Time Temp Pulse Resp B/P (MAP) Pulse Ox O2 Delivery O2 Flow Rate FiO2 10/24/19 08:31 126/58 10/24/19 08:00 Mechanical Ventilator Mechanical Ventilator Mechanical Ventilator 10/24/19 08:00 98.2 60 20 128/58 (81) 100 10/24/19 08:00 40 10/24/19 07:38 61 10/24/19 07:01 59 20 40 10/24/19 05:15 120/57 10/24/19 05:15 57 120/57 10/24/19 04:00 98.1 57 20 128/56 (80) 100 10/24/19 04:00 40 10/24/19 04:00 Mechanical Ventilator Mechanical Ventilator Mechanical Ventilator 10/24/19 03:39 57 10/24/19 02:55 52 20 40 10/24/19 00:00 98.2 53 20 119/57 (77) 100 10/24/19 00:00 Mechanical Ventilator Mechanical Ventilator Mechanical Ventilator 10/24/19 00:00 56 10/23/19 23:20 54 20 40 10/23/19 21:12 57 135/78 10/23/19 21:11 135/78 10/23/19 20:00 97.7 58 20 118/50 (72) 100 10/23/19 20:00 Mechanical Ventilator Mechanical Ventilator Mechanical Ventilator 10/23/19 20:00 40 10/23/19 19:05 55 20 40 10/23/19 19:03 55 10/23/19 17:25 132/62 10/23/19 16:00 40 10/23/19 16:00 97.8 61 20 145/76 (99) 100 10/23/19 16:00 Mechanical Ventilator Mechanical Ventilator Mechanical Ventilator 10/23/19 16:00 55 10/23/19 15:13 62 21 40 10/23/19 13:29 157/71 10/23/19 12:25 54 19 40 10/23/19 12:00 96.4 59 20 157/71 (99) 100 10/23/19 12:00 40 10/23/19 12:00 Mechanical Ventilator Mechanical Ventilator Mechanical Ventilator 10/23/19 11:50 55 11 40 40 10/23/19 11:31 57 I&O Intake and Output 10/23/19 10/24/19 19:00 07:00 Intake Total 690 ml 640 ml Output Total 400 ml 200 ml Balance 290 ml 440 ml Intake Free Water 250 ml 160 ml Tube Feeding 440 ml 480 ml Output Urine Total 400 ml 200 ml # Bowel Movements 1 Dressing: saturated Cardiovascular: RSR Respiratory: clear, decreased breath sounds Abdomen: soft, non-tender, present bowel sounds Extremities: no edema, no tenderness, no cyanosis Laboratory Tests Test 10/23/19 11:31 10/23/19 15:05 10/23/19 16:23 10/23/19 23:25 POC Whole Blood Glucose 98 MG/DL (74-106) 87 MG/DL (74-106) 103 MG/DL (74-106) Random Gentamicin Level 2.0 ug/mL Test 10/24/19 02:50 10/24/19 05:13 White Blood Count 9.9 K/UL (4.8-10.8) Red Blood Count 3.78 M/UL (4.20-5.40) L Hemoglobin 11.4 G/DL (12.0-16.0) L Hematocrit 34.5 % (37.0-47.0) L Mean Corpuscular Volume 91 FL (80-99) Mean Corpuscular Hemoglobin 30.1 PG (27.0-31.0) Mean Corpuscular Hemoglobin Concent 33.0 G/DL (32.0-36.0) Red Cell Distribution Width 14.6 % (11.6-14.8) Platelet Count 378 K/UL (150-450) Mean Platelet Volume 4.8 FL (6.5-10.1) L Neutrophils (%) (Auto) 73.7 % (45.0-75.0) Lymphocytes (%) (Auto) 18.2 % (20.0-45.0) L Monocytes (%) (Auto) 5.1 % (1.0-10.0) Eosinophils (%) (Auto) 1.9 % (0.0-3.0) Basophils (%) (Auto) 1.2 % (0.0-2.0) Sodium Level 136 MMOL/L (136-145) Potassium Level 4.2 MMOL/L (3.5-5.1) Chloride Level 100 MMOL/L (98-107) Carbon Dioxide Level 26 MMOL/L (21-32) Anion Gap 10 mmol/L (5-15) Blood Urea Nitrogen 93 mg/dL (7-18) H Creatinine 2.6 MG/DL (0.55-1.30) H Estimat Glomerular Filtration Rate 19.7 mL/min (>60) Glucose Level 114 MG/DL (74-106) H Calcium Level 9.2 MG/DL (8.5-10.1) Phosphorus Level 4.7 MG/DL (2.5-4.9) Magnesium Level 3.3 MG/DL (1.8-2.4) H Total Bilirubin 0.3 MG/DL (0.2-1.0) Aspartate Amino Transf (AST/SGOT) 22 U/L (15-37) Alanine Aminotransferase (ALT/SGPT) 13 U/L (12-78) Alkaline Phosphatase 163 U/L (46-116) H Total Protein 6.6 G/DL (6.4-8.2) Albumin 1.7 G/DL (3.4-5.0) L Globulin 4.9 g/dL Albumin/Globulin Ratio 0.3 (1.0-2.7) L POC Whole Blood Glucose 110 MG/DL (74-106) H Plan Problems: (1) Anemia (2) Proteinuria (3) UTI (urinary tract infection) (4) ARF (acute renal failure) (5) ACS (acute coronary syndrome) (6) Respiratory failure, acute and chronic (7) HCAP (healthcare-associated pneumonia) (8) Abrasion of lip, initial encounter (9) COPD with exacerbation (10) Hypokalemia (11) Sepsis Assessment & Plan: Leukocytosis, anemia, abnormal labs. Renal insufficiency potentially dehydrated Abnormal LFTs alk phos elevated Urine noted significant bacteria likely UTI etiology Wound stable still requiring local care IV antibiotics per infectious disease Discussed with washroom cleaner Dr. Berkowitz air mattress turn q2h nutritional tf will follow with recs thank you CT noted pending VQ scan - noted poor study low prob PE work respiratory increasing needs sedation weaning vent settings 80% peep 10 now comfortable Hd line in receiving HD plan for left thora 09/26 cont weaning vent as tolerated improving labs improved placement d/c planning (12) Chronic respiratory failure (13) Ascites (14) Bacteremia (15) Hypernatremia (16) Pleural effusion (17) Pacemaker (18) Aortic dissection, thoracic (19) Tracheostomy in place Assessment & Plan: trach stable no bleeding currently likely tongue etiology of mild oozing currently hemostatic without trauma (20) Feeding by G-tube Assessment & Plan: okay to resume tube feeds via g tube patent and functional dressings okay DAILY ESTIMATED NEEDS: Needs based on Pulmonary, wound 49kg 30-35 kcals/kg [id number] total kcals 1.25-2 g protein/kg 61-98 g total protein Fluid per MD NUTRITION DIAGNOSIS: * Swallowing difficulty R/T dysphagia, respiratory status as evidenced by vent dep via T-collar, GT Dep. (CURRENT TF: Nepro @45ml/hr x 24 hrs) ENTERAL NUTRITION RECOMMENDATIONS: Nepro @ 40ml/hr x 24 hrs to provide 960ml, 1728kcal, 78g prot, 698ml free water * Rec LOWER current rate to 40ml/hr for 24 hrs run. * Water flush of 100ml q 6 hrs per orders * HOB over 30 degrees ADDITIONAL RECOMMENDATIONS: * Per SNF: HT=63", DR=[id number] -> rec calibrated bedscale wt * Pt on Nepro WIRE SETTER, possible h/o electrolyte imbalance -> monitor lytes closely (K low at this time) * [employer]E [employer]ING [employer]PER[employer]OR eval for oral grat if appropriate * F/up w/ WC eval-> add FRANKLIN in 4oz H20 BID via GT (21) JAVIER (acute kidney injury) (22) Elevated alkaline phosphatase level Assessment & Plan: noted on labs trend US ordered will follow with recs thank you (23) Acute encephalopathy (24) GT CLOGGED (25) Sacral decubitus ulcer, stage IV Assessment & Plan: Pt presented on admission with Full thickness stage 4 Sacral Pressure injury which extends into R gluteal cheek. Base of wound is granular with bone exposure at base of sacrococcygeal.(L)10.5cm x (W06.5cm x (D) 2.8cm , undermining 11-3 by 3.6cm @12 o'clock. small amt serosanguineous exudate noted . Cromberg epithelial along edges bordered by darker skin tone without erythema. Resolving Pressure injury L ischium. Base of wound is 95% pink epithelial ,5% noni at center base of wound. No exudate noted. Both heels are boggy with non-Blanching erythema. Tx.plan: Cleanse Sacral wound with Saline. Loosely pack with Hydrogel impregnated Kerlix. Apply Moisture Barrier Periwound. Cover with Optifoam drsg Daily and prn. Apply Moisture Barrier paste to L Ischium. Cover with Optifoam drsg. Changee very 3 days and prn. Apply Cavilon Skin Barrier to both heels. Cover each heel with Optifoam drsgs. Change every 7 days and prn. Reposition at least every 2hours or as tolerated. Off-load heels with pillow. APM/MAXWELL Mattress overlay. Sacral wound resolving. Wound is smaller in size with less depth and undermining (L)8.5cm x (W)5cm x (D)1.3cm, undermining clockwise 11-3 by 2.1cm @ 12o'clock. Base of wound is pink and moist, small area of bone exposure at base. Small amt. seropurulent exudate noted. No odor noted. Periwound without evidence of further skin breakdown noted. Wound Tx. are effective and continued as ordered. Al wound prevention protocols continued as care-planned. Tx.Plan:Cleanse sacral wound with Saline. Loosely pack with Hydrogel impregnated kerlix. Apply Moisture Barrier Paste periwound. Cover with Optifoam drsg Daily and prn. Apply Cavilon Skin Barrier to both heels and malleoli. Cover eachsite with Optifoam drsgs. Change every 7 days and prn. Reposition at least every 2hours or as tolerated. Off-load heels with pillow. APM/Maxwell Mattress overlay. Lane Saavedra Oct 24, 2019 10:30
--- NOTE | 2019-10-24 10:36 | Pulmonology Progress Note ---
Yara Castro [employer] 10/24/19 1036: Subjective ROS Limited/Unobtainable: Yes Allergies: Coded Allergies: No Known Allergies (Unverified , 10/10/17) Subjective in PAULIE now on CPAP trials with PS 8 , tolerated for 8 hrs no signs of resp distress denies CP, SOB remains afebrile, no leukocytosis Objective Last 24 Hour Vital Signs Date Time Temp Pulse Resp B/P (MAP) Pulse Ox O2 Delivery O2 Flow Rate FiO2 10/24/19 08:31 126/58 10/24/19 08:00 Mechanical Ventilator Mechanical Ventilator Mechanical Ventilator 10/24/19 08:00 98.2 60 20 128/58 (81) 100 10/24/19 08:00 40 10/24/19 07:38 61 10/24/19 07:01 59 20 40 10/24/19 05:15 120/57 10/24/19 05:15 57 120/57 10/24/19 04:00 98.1 57 20 128/56 (80) 100 10/24/19 04:00 40 10/24/19 04:00 Mechanical Ventilator Mechanical Ventilator Mechanical Ventilator 10/24/19 03:39 57 10/24/19 02:55 52 20 40 10/24/19 00:00 98.2 53 20 119/57 (77) 100 10/24/19 00:00 Mechanical Ventilator Mechanical Ventilator Mechanical Ventilator 10/24/19 00:00 56 10/23/19 23:20 54 20 40 10/23/19 21:12 57 135/78 10/23/19 21:11 135/78 10/23/19 20:00 97.7 58 20 118/50 (72) 100 10/23/19 20:00 Mechanical Ventilator Mechanical Ventilator Mechanical Ventilator 10/23/19 20:00 40 10/23/19 19:05 55 20 40 10/23/19 19:03 55 10/23/19 17:25 132/62 10/23/19 16:00 40 10/23/19 16:00 97.8 61 20 145/76 (99) 100 10/23/19 16:00 Mechanical Ventilator Mechanical Ventilator Mechanical Ventilator 10/23/19 16:00 55 10/23/19 15:13 62 21 40 10/23/19 13:29 157/71 10/23/19 12:25 54 19 40 10/23/19 12:00 96.4 59 20 157/71 (99) 100 10/23/19 12:00 40 10/23/19 12:00 Mechanical Ventilator Mechanical Ventilator Mechanical Ventilator 10/23/19 11:50 55 11 40 40 10/23/19 11:31 57 Intake and Output 10/23/19 10/24/19 19:00 07:00 Intake Total 690 ml 640 ml Output Total 400 ml 200 ml Balance 290 ml 440 ml Intake Free Water 250 ml 160 ml Tube Feeding 440 ml 480 ml Output Urine Total 400 ml 200 ml # Bowel Movements 1 Objective General Appearance: no apparent distress, bedridden middle age chronically ill looking female on vent AC 500-20- 40%, PEEP 5, awake, calm-currently on CPAP PS8 Lines, tubes and drains: left jugular HD catheter HEENT: normocephalic, atraumatic, anicteric, trach - Shiley #7 cuffed XLT, secretions small amount, yellow color , thick consistency Respiratory/Chest: no accessory muscle use, BS overall CTAB Cardiovascular/Chest: normal rate, regular rhythm - SR on tele Abdomen: normal bowel sounds, non tender, soft, G tube Genitourinary/Rectal: Norman Extremities: no edema Skin Exam: warm/dry, multiple tattoos all over the body Neurologic: awake, no gross focal Musculoskeletal: atrophy - BLE Laboratory Tests 10/23/19 11:31: POC Whole Blood Glucose 98 10/23/19 15:05: Random Gentamicin Level 2.0 10/23/19 16:23: POC Whole Blood Glucose 87 10/23/19 23:25: POC Whole Blood Glucose 103 10/24/19 02:50: White Blood Count 9.9, Red Blood Count 3.78L, Hemoglobin 11.4L, Hematocrit 34.5L , Mean Corpuscular Volume 91, Mean Corpuscular Hemoglobin 30.1, Mean Corpuscular Hemoglobin Concent 33.0, Red Cell Distribution Width 14.6, Platelet Count 378, Mean Platelet Volume 4.8L, Neutrophils (%) (Auto) 73.7, Lymphocytes ( %) (Auto) 18.2L, Monocytes (%) (Auto) 5.1, Eosinophils (%) (Auto) 1.9, Basophils (%) (Auto) 1.2, Sodium Level 136, Potassium Level 4.2, Chloride Level 100, Carbon Dioxide Level 26, Anion Gap 10, Blood Urea Nitrogen 93H, Creatinine 2.6H, Estimat Glomerular Filtration Rate 19.7, Glucose Level 114H, Calcium Level 9.2, Phosphorus Level 4.7, Magnesium Level 3.3H, Total Bilirubin 0.3, Aspartate Amino Transf (AST/SGOT) 22, Alanine Aminotransferase (ALT/SGPT) 13, Alkaline Phosphatase 163H, Total Protein 6.6, Albumin 1.7L, Globulin 4.9, Albumin/Globulin Ratio 0.3L 10/24/19 05:13: POC Whole Blood Glucose 110H Current Medications Medications (Trade) Dose Ordered Sig/Penny Route PRN Reason Start Time Stop Time Status Last Admin Dose Admin Acetaminophen (Tylenol) 500 mg Q4H PRN GT Mild Pain (Pain Scale 1-3) 10/23/19 14:45 11/16/19 18:44 Ascorbic Acid (Vitamin C) 500 mg DAILY ORAL 10/11/19 09:00 11/05/19 08:59 10/24/19 08:32 Chlorhexidine Gluconate (Ling-Hex 2%) 1 applic DAILY@2000 TOPIC 10/11/19 20:00 12/22/19 19:59 10/23/19 21:11 Clonidine HCl (Catapres TTS-3) 1 patch QWEEK TDERMAL 10/14/19 12:00 01/12/20 11:59 10/21/19 12:26 Dextrose (Dextrose 50%) 25 ml Q30M PRN IV Hypoglycemia 10/11/19 04:30 01/03/20 18:29 Dextrose (Dextrose 50%) 50 ml Q30M PRN IV Hypoglycemia 10/11/19 04:30 01/03/20 18:29 Diltiazem HCl (Cardizem Tab) 60 mg Q8HR GT 10/24/19 14:00 11/09/19 11:59 Docusate Sodium (Colace) 100 mg Q8HR GT 10/14/19 14:01 11/13/19 14:00 10/24/19 05:14 Epoetin Gelacio (Epoetin Gelacio(ESRD on dialysis)) 10,000 unit MON-WED-MON SUBQ 10/14/19 21:00 01/12/20 20:59 10/23/19 21:11 Gentamicin Protocol (Gentamicin pharmacy to dose) 1 ea DAILY PRN MISC Per rx protocol 10/22/19 13:45 11/21/19 13:44 Haloperidol (Haldol) 5 mg BIDPRN PRN GT Agitation 10/23/19 17:00 12/07/19 16:59 10/24/19 09:20 Heparin Sodium (Porcine) (Heparin 5000 units/ml) 5,000 units EVERY 12 HOURS SUBQ 10/11/19 09:00 10/30/19 08:59 10/24/19 08:31 Hydromorphone HCl (Dilaudid) 2 mg Q8HR GT 10/23/19 22:00 10/30/19 12:59 10/24/19 05:14 Insulin Aspart (NovoLOG) Q6HR SUBQ 10/11/19 06:00 01/03/20 20:59 Lansoprazole (Prevacid) 30 mg Q12HR GT 10/11/19 09:00 10/27/19 20:59 10/24/19 08:31 Lisinopril (PriniviL) 20 mg BID GT 10/11/19 09:00 11/08/19 17:59 10/24/19 08:31 Metoclopramide HCl (Reglan) 5 mg EVERY 6 HOURS GT 10/11/19 06:00 11/08/19 11:59 10/24/19 05:14 Metolazone (Zaroxolyn) 2.5 mg DAILY GT 10/25/19 09:00 11/22/19 08:59 Minoxidil (Loniten) 5 mg Q8HR ORAL 10/22/19 14:00 01/08/20 13:59 10/23/19 21:11 Polyethylene Glycol (Miralax) 17 gm BEDTIME ORAL 10/11/19 21:00 10/31/19 20:59 10/21/19 20:20 Risperidone (RisperDAL) 2 mg BEDTIME ORAL 10/11/19 21:00 11/19/19 20:59 10/23/19 21:11 Sorbitol (sorbitoL) 30 ml EVERY 6 HOURS PRN GT Constipation 10/11/19 06:00 10/29/19 17:59 Vitamin B Complex/ Vit C/Folic Acid (Nephrovite) 1 tab DAILY ORAL 10/11/19 09:00 11/05/19 08:59 9/10/20 08:31 Assessment/Plan Assessment/Plan ASSESSMENT Acute on chronic hypoxemic respiratory failure ( trach dependent), now on vent Tracheostomy status, s/p change to cuffed trach Sepsis Pulmonary edema Pleural effusion -worsening left pl effusion s/p thoracentesis L pleural effusion 09/26 -900 ml Pneumonia with MDR Pseudomonas UTI CHF ? cardiorenal COPD Acute kidney injury and chronic kidney disease-requiring start of HD Hypertension Atrial fibrillation Moderate pulm HTN Moderate AR Dysphagia , feeding by G-tube Electrolyte abnormalities Anemia Toxic metabolic encephalopathy likely due to sepsis and ARF HTN PAF Fevers. leukocytosis -resolved PLAN OF CARE PAULIE on vent AC trach changed 8/4 pm from uncuffed to cuffed Shiley#[address] chest w/out contrast: - Bilateral pleural effusions, right greater than left, with bilateral lower lobe consolidation or volume loss. -Ground-glass densities in the upper lobes bilaterally. This is not specific. -Tracheostomy. -Increased superior mediastinal density. Stability of adenopathy cannot be excluded. -Atherosclerotic change. -Gastrostomy. -Ascites. -Left renal stent with left hydronephrosis and renal atrophy. VQ scan -> low probability for PE worsening resp status was due to need for HD, now after HD started, resp status improving, down to PEEP 5 and AC 20 trach care , pulmonary toilet Mucomyst was prior dc given lots of thin secretions, continue Duoneb prn rapid COVID 19 NGT x3 off Fentanyl gtt since 10/09 FiO2 down to 40% last ABG stable 10/09 CXR 10/14 -increased right pleural fluid and parenchymal disease, doubt PNA likely fluid tolerating CPAP trials with PS 8 FiO2 40% 10/18-for 8 hrs continue CPAP trials as tolerated may continue in subacute upon discharge s/p thoracentesis L pleural effusion 09/26 am -> 900 ml fluid analysis noted, unlikely empyema given small # of WBC fup with fluid cx ( apparently never sent despite orders) cytology -> NGT, no malignant cells aspiration precautions venous Duplex BLE -> NGT DVT prophylaxis pulm toilet, BP regimen optimized as per nephro monitor volumes was on gentle IVF-> dc s/p prior diuretic-Lasix require initiation of HD continue further HD as per nephro with close monitoring of volumes, renal parameters and lytes -per nephro recs abx as per ID- recently pancx 10/14 due to fever and leukocytosis 10/14 BCX NGTD UCX 10/14 + Providencia, MDR, SCX+ Proteus ESBL, Pseudomonas MDR CXR 10/12 stable leuk 10/17, started on meropenem 10/17 -> as per ID recs, CXR 10/17 bilateral pleural effusions demonstrated. Mild interstitial and airspace congestion unchanged. no fevers abx changed to Cent 10/21-> for Pseudomonas MDR given prior fevers and mild leukocytosis, both resolved ECHO with pEF , moderate pulm HTN and moderate AR BP management with current regimen of BB, Cardizem and Hydralazine, remains in SR monitor HH with goal to keep Hgb >7, heme on board on EPO supportive care pain management wound care bowel regimen stable for dc from pulm standpoint dc plan in progress case discussed and evaluated by supervising physician Juve Martinez MD 10/24/19 1124: Subjective Allergies: Coded Allergies: No Known Allergies (Unverified , 10/10/17) Assessment/Plan Assessment/Plan Patient seen and examined with [employer]. Agree with above A&P as it reflects our joint deliberations. CPAP trials, wean vent as able Yara Castro NP Oct 24, 2019 10:36 Juve Martinez MD Oct 24, 2019 11:24
--- NOTE | 2019-10-24 12:06 | Diagnostic Imaging Report ---
Indication: Cough Technique: One view of the chest Comparison: 10/18/2019 Findings: Patient is rotated to the right. Tracheostomy, left jugular dialysis catheter are again demonstrated. There is decreased hazy opacity at the right lung base, likely reflecting decreasing pleural fluid. Pleural fluid on the left also appears slightly improved. There is suggestion of slightly improved aeration in the retrocardiac region The heart size is normal. Impression: Slightly improved bilateral pleural effusions and retrocardiac consolidation, since 10/18/2019
[2019-10-24] MEDS: dilTIAZem HCl 60mg tab GT SCH ×2 (13:13→21:10)
--- NOTE | 2019-10-24 14:00 | Infectious Diseases Prog Note ---
Assessment/Plan 49yo F with: Fever, recurrent; SP Leukocytosis, recurrent- SP -10/14 Bcx NTD Acute hypoxic resp failure: Now on vent, worsening, FiO2 100% > 80% 09/27 > 60% >40% 10/08 >30% 10/09 >40% 10/14 Pneumonia, COVID19 neg x3 - MDR PsA pneumonia,s pr x 10/23 CXR: Slightly improved bilateral pleural effusions and retrocardiac consolidation, since 10/18/201910/14 CXR: Increased right pleural fluid and parenchymal disease, since previous exam of 10/09/2019. Stable pleural and parenchymal disease on the left sp cx ESBL P. mirabilis, MDR P.a. ( S only to Gent) 10/07 CXR: Bilateral infiltrates versus edema, left greater than right pleural effusions are again demonstrated, unchanged. There is slightly better inspiration currently. 09/29 CXR: Bilateral edema versus infiltrates appears slightly worse than on the prior study. There is probably some pleural fluid on the left. 09/26 S/P thoracentesis, 900cc removed, only 67 WBC in fluid analysis, unlikely empyema 09/26 CXR: Worsening R perihilar opacity 09/26 BCx Neg 09/24 CXR: Previously demonstrated right lateral basilar lucency is no longer evident, was presumably a skin fold artifact. Bilateral infiltrates and left pleural effusion are probably unchanged allowing for slight differences in technique. 09/22 Resp cx + MDR PsA (S-gent; I-colistin; R-levofloxacin, Zosyn, angelo) 09/22 BCx NTD 09/22 CXR: worsening BL pna 09/22 UA w/ persistent pyuria, now on HD, UCx +VRE, most likely colonizer as improving wo tx for this 09/19 V/Q scan, low probability of PE 09/18 Rapid COVID PCR neg 09/18 CT chest: Markedly suboptimal examination due to lack of IV contrast material. Bilateral pleural effusions, right greater than left, with bilateral lower lobe consolidation or volume loss. Ground glass densities in the upper lobes bilaterally. This is not specific. Tracheostomy. Increased superior mediastinal density. Stability of adenopathy cannot be excluded. Atherosclerotic change. Gastrostomy. Ascites. Left renal stent with left hydronephrosis and renal atrophy. 09/17 Chest US: Trace right and small left pleural effusions. No safe window identified for bedside thoracentesis. Note that the majority of the left pleural effusion is subpulmonic. 09/16 CXR: Worsening of right lung infiltrates and right effusion. V. duplex: NO DVT D-dimer elevated 09/15 Rapid COVID PCR neg 09/15 Sp cx ESBL P. mirablis 09/14 CXR: Bilateral airspace opacities, preferentially involving the right lung, consistent with multifocal infiltrate. Trace bilateral pleural effusions. No pneumothorax. Rapid COVID PCR neg Urine legionella neg 09/16 GPC bacteremia, real vs contaminant; does have hx of infected PPM- 09/14 Bcx 03/19 S. epidermis; 09/15, , Bcx Neg 2d echo: no vegetations seen UTI, recurrent 09/14 u/a wbc tnct, nit neg, leuk +3; ucx >100k MDR P. stuarti (S Ceftriaxone, Meropenem) 09/22 UA w/ ongoing pyuria, unchanged 10/07 u/a wbc tnct, nit neg, leuk ; ucx >100k VRE 10/14 u/a wbc tnct; ucx >100k ESBL P. stuarti (S ertapenem, aztreonam) Unstageable sacral ulceration JAVIER on CKD --> now on HD Renal US: Limited exam due to abdominal ascites and shadowing from bowel gas. CT recommended for more sensitive evaluation. Moderate right hydronephrosis. Increased renal parenchymal echogenicity suggesting intrinsic/ medical renal disease. Question indwelling left ureteral stent versus artifact. Bladder not visualized. 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 epi-11/2018, sp > 6weeks IV vancomycin 11/27 SP ABBIE: no evidence for vegetation on any of the valves 11/26/18 SP PPM removal: OR findings:The fibrous capsule enclosing the generator was then opened and there was a [id number] amount of yellowish fluid drainage. The generator was then removed.Atrial and ventricular leads were detached. The necrotic tissue of the pocket was then removed and the pocket was flushed with an antibiotic solution. Capsule, wound tissue and lead tip cx: Neg 2d echo: no vegetation seen US chest: 4.6 x 3.4 x 0.9 cm hypoechoic/anechoic area overlying left chest pacemaker power pack. This could represent either a discrete fluid collection or a focal area of very edematous tissue. Infected fluid pocket also possible. 11/18 Bcx 3/4 S. epi; 11/20 Bcx neg; 11/24 Bcx Neg; 11/27 Bcx Neg Hx of PNA 11/2019? sp cx PsA (arnett S), ABC (I Ceftriaxone; otherwise negative) Sp cx MRSA, ABC (I Ceftriaxone; otherwise S) PMH: Afib HTN Dysphagia sp GT Aortic dissection s/p repair 2017, S/p PPM Parkinson's Disease Schizophrenia Anxiety COPD Chronic resp failure s/p trach Hx of tracheal bleeding [place] resident ([facility]) Plan: Continue IV Gentamycin #3/5 for MDR PsA given leukocytosis 10/21 SP Meropenem #5 10/14 SP Daptomycin #5 10/03 SP Zerbaxa #6, gent #7 for MDR PsA pna 09/29 SP vanco #15 for S.epi in BCx 09/27 SP angelo #13 09/16 SP Cefepime #3, Levaquin #3 Monitor CBC/CMP, temperatures trach/ peg care Aspiration precautions D/w RN Thank you for this consultation. Will continue to follow along with you. Subjective Allergies: Coded Allergies: No Known Allergies (Unverified , 10/10/17) afebrile leukocytosis resolved CXR improving awaiting placement Objective Last 24 Hour Vital Signs Date Time Temp Pulse Resp B/P (MAP) Pulse Ox O2 Delivery O2 Flow Rate FiO2 10/24/19 13:13 71 137/64 10/24/19 12:40 95 10/24/19 12:00 98.1 71 20 137/64 (88) 100 10/24/19 12:00 Mechanical Ventilator Mechanical Ventilator Mechanical Ventilator 10/24/19 12:00 40 10/24/19 11:05 65 24 40 10/24/19 08:31 126/58 10/24/19 08:00 Mechanical Ventilator Mechanical Ventilator Mechanical Ventilator 10/24/19 08:00 98.2 60 20 128/58 (81) 100 10/24/19 08:00 40 10/24/19 07:38 61 10/24/19 07:01 59 20 40 10/24/19 05:15 120/57 10/24/19 05:15 57 120/57 10/24/19 04:00 98.1 57 20 128/56 (80) 100 10/24/19 04:00 40 10/24/19 04:00 Mechanical Ventilator Mechanical Ventilator Mechanical Ventilator 10/24/19 03:39 57 10/24/19 02:55 52 20 40 10/24/19 00:00 98.2 53 20 119/57 (77) 100 10/24/19 00:00 Mechanical Ventilator Mechanical Ventilator Mechanical Ventilator 10/24/19 00:00 56 10/23/19 23:20 54 20 40 10/23/19 21:12 57 135/78 10/23/19 21:11 135/78 10/23/19 20:00 97.7 58 20 118/50 (72) 100 10/23/19 20:00 Mechanical Ventilator Mechanical Ventilator Mechanical Ventilator 10/23/19 20:00 40 10/23/19 19:05 55 20 40 10/23/19 19:03 55 10/23/19 17:25 132/62 10/23/19 16:00 40 10/23/19 16:00 97.8 61 20 145/76 (99) 100 10/23/19 16:00 Mechanical Ventilator Mechanical Ventilator Mechanical Ventilator 10/23/19 16:00 55 10/23/19 15:13 62 21 40 Height (Feet): 5 Height (Inches): 5.00 Weight (Pounds): 134 Gen: no distress Cardiovascular: RrR, S1 S2 normal Respiratory: decreased breath sounds Abdomen: soft, non-tender, present bowel sounds Extremities: no edema, no tenderness Laboratory Tests Test 10/23/19 15:05 10/23/19 16:23 10/23/19 23:25 10/24/19 02:50 Random Gentamicin Level 2.0 ug/mL POC Whole Blood Glucose 87 MG/DL (74-106) 103 MG/DL (74-106) White Blood Count 9.9 K/UL (4.8-10.8) Red Blood Count 3.78 M/UL (4.20-5.40) L Hemoglobin 11.4 G/DL (12.0-16.0) L Hematocrit 34.5 % (37.0-47.0) L Mean Corpuscular Volume 91 FL (80-99) Mean Corpuscular Hemoglobin 30.1 PG (27.0-31.0) Mean Corpuscular Hemoglobin Concent 33.0 G/DL (32.0-36.0) Red Cell Distribution Width 14.6 % (11.6-14.8) Platelet Count 378 K/UL (150-450) Mean Platelet Volume 4.8 FL (6.5-10.1) L Neutrophils (%) (Auto) 73.7 % (45.0-75.0) Lymphocytes (%) (Auto) 18.2 % (20.0-45.0) L Monocytes (%) (Auto) 5.1 % (1.0-10.0) Eosinophils (%) (Auto) 1.9 % (0.0-3.0) Basophils (%) (Auto) 1.2 % (0.0-2.0) Sodium Level 136 MMOL/L (136-145) Potassium Level 4.2 MMOL/L (3.5-5.1) Chloride Level 100 MMOL/L (98-107) Carbon Dioxide Level 26 MMOL/L (21-32) Anion Gap 10 mmol/L (5-15) Blood Urea Nitrogen 93 mg/dL (7-18) H Creatinine 2.6 MG/DL (0.55-1.30) H Estimat Glomerular Filtration Rate 19.7 mL/min (>60) Glucose Level 114 MG/DL (74-106) H Calcium Level 9.2 MG/DL (8.5-10.1) Phosphorus Level 4.7 MG/DL (2.5-4.9) Magnesium Level 3.3 MG/DL (1.8-2.4) H Total Bilirubin 0.3 MG/DL (0.2-1.0) Aspartate Amino Transf (AST/SGOT) 22 U/L (15-37) Alanine Aminotransferase (ALT/SGPT) 13 U/L (12-78) Alkaline Phosphatase 163 U/L (46-116) H Total Protein 6.6 G/DL (6.4-8.2) Albumin 1.7 G/DL (3.4-5.0) L Globulin 4.9 g/dL Albumin/Globulin Ratio 0.3 (1.0-2.7) L Test 10/24/19 05:13 10/24/19 12:42 POC Whole Blood Glucose 110 MG/DL (74-106) H 114 MG/DL (74-106) H Current Medications Medications (Trade) Dose Ordered Sig/Penny Route PRN Reason Start Time Stop Time Status Last Admin Dose Admin Acetaminophen (Tylenol) 500 mg Q4H PRN GT Mild Pain (Pain Scale 1-3) 10/23/19 14:45 11/16/19 18:44 Ascorbic Acid (Vitamin C) 500 mg DAILY ORAL 10/11/19 09:00 11/05/19 08:59 10/24/19 08:32 Chlorhexidine Gluconate (Ling-Hex 2%) 1 applic DAILY@2000 TOPIC 10/11/19 20:00 12/22/19 19:59 10/23/19 21:11 Clonidine HCl (Catapres TTS-3) 1 patch QWEEK TDERMAL 10/14/19 12:00 01/12/20 11:59 10/21/19 12:26 Dextrose (Dextrose 50%) 25 ml Q30M PRN IV Hypoglycemia 10/11/19 04:30 01/03/20 18:29 Dextrose (Dextrose 50%) 50 ml Q30M PRN IV Hypoglycemia 10/11/19 04:30 01/03/20 18:29 Diltiazem HCl (Cardizem Tab) 60 mg Q8HR GT 10/24/19 14:00 11/09/19 11:59 10/24/19 13:13 Docusate Sodium (Colace) 100 mg Q8HR GT 10/14/19 14:01 11/13/19 14:00 10/24/19 13:13 Epoetin Gelacio (Epoetin Gelacio(ESRD on dialysis)) 10,000 unit MON-MON-MON SUBQ 10/14/19 21:00 01/12/20 20:59 10/23/19 21:11 Gentamicin Protocol (Gentamicin pharmacy to dose) 1 ea DAILY PRN MISC Per rx protocol 10/22/19 13:45 11/21/19 13:44 Haloperidol (Haldol) 5 mg BIDPRN PRN GT Agitation 10/23/19 17:00 12/07/19 16:59 10/24/19 09:20 Heparin Sodium (Porcine) (Heparin 5000 units/ml) 5,000 units EVERY 12 HOURS SUBQ 10/11/19 09:00 10/30/19 08:59 10/24/19 08:31 Hydromorphone HCl (Dilaudid) 2 mg Q8HR GT 10/23/19 22:00 10/30/19 12:59 10/24/19 13:52 Insulin Aspart (NovoLOG) Q6HR SUBQ 10/11/19 06:00 01/03/20 20:59 Lansoprazole (Prevacid) 30 mg Q12HR GT 10/11/19 09:00 10/27/19 20:59 10/24/19 08:31 Lisinopril (PriniviL) 20 mg BID GT 10/11/19 09:00 11/08/19 17:59 10/24/19 08:31 Metoclopramide HCl (Reglan) 5 mg EVERY 6 HOURS GT 10/11/19 06:00 11/08/19 11:59 10/24/19 13:13 Metolazone (Zaroxolyn) 2.5 mg DAILY GT 10/25/19 09:00 11/22/19 08:59 Minoxidil (Loniten) 5 mg Q8HR ORAL 10/22/19 14:00 01/08/20 13:59 10/23/19 21:11 Polyethylene Glycol (Miralax) 17 gm BEDTIME ORAL 10/11/19 21:00 10/31/19 20:59 10/21/19 20:20 Risperidone (RisperDAL) 2 mg BEDTIME ORAL 10/11/19 21:00 11/19/19 20:59 10/23/19 21:11 Sorbitol (sorbitoL) 30 ml EVERY 6 HOURS PRN GT Constipation 10/11/19 06:00 10/29/19 17:59 Vitamin B Complex/ Vit C/Folic Acid (Nephrovite) 1 tab DAILY ORAL 10/11/19 09:00 11/05/19 08:59 10/24/19 08:31 Doreen Nino M.D. Oct 24, 2019 14:00
[2019-10-24] MEDS: Acetaminophen 650mg/20.3ml GT PRN (18:12)
[2019-10-24] MEDS: Dyna-Hex 2% Top Sol 2oz TOPIC SCH (19:25)
--- NOTE | 2019-10-24 19:37 | General Progress Note ---
Assessment/Plan Status: stable, other - Mood has improved he is able to smile there is no continuous tearing overall she looks better today energy looking the last several days continue with the same management Status Narrative Patient is awake alert afebrile hemodynamically stable Still on antibiotics she is on gentamicin for Pseudomonas infection for the next several days She does not act or behave septic Attempt to place the patient into [facility] failed because of patient age other than because of her medical condition Repeat laboratory tests will be done a.m. LUCAS DONG MD Subjective Constitutional: Reports: no symptoms, other - Awake alert febrile smile HEENT: Reports: no symptoms Cardiovascular: Reports: no symptoms Respiratory: Reports: no symptoms Gastrointestinal/Abdominal: Reports: no symptoms Neurologic/Psychiatric: Reports: other - Again become tearful when after hitting why she could not be discharged Endocrine: Reports: no symptoms Hematologic/Lymphatic: Reports: no symptoms Allergies: Coded Allergies: No Known Allergies (Unverified , 10/10/17) Objective Last 24 Hour Vital Signs Date Time Temp Pulse Resp B/P (MAP) Pulse Ox O2 Delivery O2 Flow Rate FiO2 10/24/19 17:33 117/53 10/24/19 16:00 40 10/24/19 16:00 61 10/24/19 16:00 98.1 59 20 112/52 (72) 98 10/24/19 16:00 Mechanical Ventilator Mechanical Ventilator Mechanical Ventilator 10/24/19 14:36 63 24 10/24/19 14:30 64 117/54 (75) 10/24/19 14:00 117/53 10/24/19 13:13 71 137/64 10/24/19 12:40 95 10/24/19 12:00 98.1 71 20 137/64 (88) 100 10/24/19 12:00 Mechanical Ventilator Mechanical Ventilator Mechanical Ventilator 10/24/19 12:00 40 10/24/19 12:00 60 10/24/19 11:05 65 24 40 10/24/19 08:31 126/58 10/24/19 08:00 Mechanical Ventilator Mechanical Ventilator Mechanical Ventilator 10/24/19 08:00 98.2 60 20 128/58 (81) 100 10/24/19 08:00 40 10/24/19 07:38 61 10/24/19 07:01 59 20 40 10/24/19 05:15 120/57 10/24/19 05:15 57 120/57 10/24/19 04:00 98.1 57 20 128/56 (80) 100 10/24/19 04:00 40 10/24/19 04:00 Mechanical Ventilator Mechanical Ventilator Mechanical Ventilator 10/24/19 03:39 57 10/24/19 02:55 52 20 40 10/24/19 00:00 98.2 53 20 119/57 (77) 100 10/24/19 00:00 Mechanical Ventilator Mechanical Ventilator Mechanical Ventilator 10/24/19 00:00 56 10/23/19 23:20 54 20 40 10/23/19 21:12 57 135/78 10/23/19 21:11 135/78 10/23/19 20:00 97.7 58 20 118/50 (72) 100 10/23/19 20:00 Mechanical Ventilator Mechanical Ventilator Mechanical Ventilator 10/23/19 20:00 40 Intake and Output 10/23/19 10/24/19 19:00 07:00 Intake Total 690 ml 640 ml Output Total 400 ml 200 ml Balance 290 ml 440 ml Intake Free Water 250 ml 160 ml Tube Feeding 440 ml 480 ml Output Urine Total 400 ml 200 ml # Bowel Movements 1 Laboratory Tests 10/23/19 23:25: POC Whole Blood Glucose 103 10/24/19 02:50: White Blood Count 9.9, Red Blood Count 3.78L, Hemoglobin 11.4L, Hematocrit 34.5L , Mean Corpuscular Volume 91, Mean Corpuscular Hemoglobin 30.1, Mean Corpuscular Hemoglobin Concent 33.0, Red Cell Distribution Width 14.6, Platelet Count 378, Mean Platelet Volume 4.8L, Neutrophils (%) (Auto) 73.7, Lymphocytes ( %) (Auto) 18.2L, Monocytes (%) (Auto) 5.1, Eosinophils (%) (Auto) 1.9, Basophils (%) (Auto) 1.2, Sodium Level 136, Potassium Level 4.2, Chloride Level 100, Carbon Dioxide Level 26, Anion Gap 10, Blood Urea Nitrogen 93H, Creatinine 2.6H, Estimat Glomerular Filtration Rate 19.7, Glucose Level 114H, Calcium Level 9.2, Phosphorus Level 4.7, Magnesium Level 3.3H, Total Bilirubin 0.3, Aspartate Amino Transf (AST/SGOT) 22, Alanine Aminotransferase (ALT/SGPT) 13, Alkaline Phosphatase 163H, Total Protein 6.6, Albumin 1.7L, Globulin 4.9, Albumin/Globulin Ratio 0.3L 10/24/19 05:13: POC Whole Blood Glucose 110H 10/24/19 12:42: POC Whole Blood Glucose 114H 10/24/19 16:25: POC Whole Blood Glucose 99 Height (Feet): 5 Height (Inches): 5.00 Weight (Pounds): 134 General Appearance: no apparent distress, alert EENT: normal ENT inspection Neck: supple, other - No JVD Cardiovascular: normal rate, regular rhythm, no gallop/murmur Respiratory/Chest: lungs clear, normal breath sounds, no respiratory distress Abdomen: normal bowel sounds, non tender, soft, no organomegaly, no mass Extremities: non-tender, other - No cyanosis clubbing or edema diffuse muscle wasting of lower extremities Skin: warm/dry Lucas Dong MD Oct 24, 2019 19:37
[2019-10-24] MEDS: Miralax 17gm pkt ORAL SCH (21:27)
[2019-10-25] VITALS: BP 124/59
[2019-10-25] MEDS: Metoclopramide 10mg/10ml Liq GT SCH ×5 (00:27→23:17)
[2019-10-25] MEDS: Acetaminophen 650mg/20.3ml GT PRN ×3 (03:02→16:58)
[2019-10-25 04:00] VITALS: BP 149/75
[2019-10-25 05:06] LABS: EOSINOPHILS % (AUTO) 5.8 % (0.0-3.0); HEMATOCRIT 35.3 % (37.0-47.0); HEMOGLOBIN 11.3 G/DL (12.0-16.0); LYMPHOCYTES % (AUTO) 19.6 % (20.0-45.0); MEAN CORPUSCULAR VOLUME 92 FL (80-99); MONOCYTES % (AUTO) 6.2 % (1.0-10.0); NEUTROPHILS % (AUTO) 67.4 % (45.0-75.0); PLATELET COUNT 373 K/UL (150-450); RED BLOOD COUNT 3.82 M/UL (4.20-5.40); RED CELL DISTRIBUTION WIDTH 14.3 % (11.6-14.8); WHITE BLOOD COUNT 9.4 K/UL (4.8-10.8)
[2019-10-25] MEDS: Docusate 100mg/10ml Liq GT SCH ×3 (05:10→21:33)
[2019-10-25] MEDS: dilTIAZem HCl 60mg tab GT SCH ×3 (05:10→21:33)
[2019-10-25] MEDS: NovoLOG Insulin Flexpen SUBQ SCH ×5 (05:11→23:18)
[2019-10-25] MEDS: HYDROmorphone 2mg tab GT SCH ×3 (05:11→21:34)
[2019-10-25] MEDS: Minoxidil 2.5mg tab ORAL SCH ×3 (05:11→21:34)
[2019-10-25 05:43] LABS: ALBUMIN 1.7 G/DL (3.4-5.0); ALBUMIN/GLOBULIN RATIO 0.3 (1.0-2.7); BILIRUBIN,TOTAL 0.3 MG/DL (0.2-1.0); CALCIUM 9.3 MG/DL (8.5-10.1); CREATININE 2.7 MG/DL (0.55-1.30); POTASSIUM 4.2 MMOL/L (3.5-5.1)
[2019-10-25 05:52] LABS: PHOSPHORUS 5.5 MG/DL (2.5-4.9)
[2019-10-25 08:00] VITALS: BP 127/63
--- NOTE | 2019-10-25 08:32 | Hematology/Onc Progress Note ---
Assessment/Plan Assessment/Plan Assessment and Recs # Leukocytosis, now with gram positive bacteremias well as pna noted --> historically --> PPM site (pocket) infection (redness and pain, bacteremia) and likely pocket abscess - no vegetation seen on ABBIE --> is s'p pm removal and also pocket infection is better --> per cards recs in re to tach/davis --> wbc 15-->19-->17-->15-->13->12-->13-->12>13-->18-->9-->7-->16-->17->9.4-->11 -->11.4-->11.3 --> ABX cefepime/levaquin--> vanc/angelo-> daptomycin-->Angelo --> ID recs are noted # Anemia of chronic disease due to underlying chronic medical issues, multifactorial --> Anemia workup has been reviewed, cw acd --> No evidence of hemolysis is noted, peripheral smear has been reviewed. --> Hgb goal >7. Transfuse prn. --> Epogen started --> Medications have been reviewed --> low threshold for gi evaluation in case has occult + --> hgb 7.1-->7.8-->8.9->9.2-->8.5-->9.7-->10-->8.8-->9.6-->8.7->8.6-->7.2->8.7- >9.1-->9.2-->9-->8.7-->9.3-->9.8-->10->10.3-->10.8->10.5->10.7 --> 1 unit prbc 09/27 # Thrombocytois is likely reactive process, is s/p infection --> plt trend 610k-->706k-->354 --> p smear reviewed # Acute hypoxic respiratory failure s/p intubation 11/23- ?ARDS --> on vent/trach # Gram positive bacteremia- real bacteremia- 2ry to above and probable PNA --> per id care # JAVIER initially >2 --> on ivfs # Elevated d-dimer --> venous duplex and v/q scan neg --> negative results # Dysphagia s/p peg # Thoracic aortic dissection s/p repair early 2017 # Psychiatric history on ativan/haldol # [place] resident # Dvt ppx --> heparin sq The timing of this note does not necessarily reflect the time of the patient was seen. Greatly appreciate consultation. Subjective Constitutional: Denies: no symptoms, chills, fever, malaise, weakness, other HEENT: Denies: no symptoms, eye pain, blurred vision, tearing, double vision, ear pain, ear discharge, nose pain, nose congestion, throat pain, throat swelling, mouth pain, mouth swelling, other Cardiovascular: Denies: no symptoms, chest pain, edema, irregular heart rate, lightheadedness, palpitations, syncope, other Respiratory: Denies: no symptoms, cough, shortness of breath, SOB with excertion, SOB at rest, sputum, wheezing, other Gastrointestinal/Abdominal: Denies: no symptoms, abdomen distended, abdominal pain, black stools, tarry stools, blood in stool, constipated, diarrhea, difficulty swallowing, nausea, poor appetite, poor fluid intake, rectal bleeding , vomiting, other Genitourinary: Denies: no symptoms, burning, discharge, frequency, flank pain, hematuria, incontinence, pain, urgency, other Neurologic/Psychiatric: Denies: no symptoms, anxiety, depressed, emotional problems, headache, numbness, paresthesia, pre-existing deficit, seizure, tingling, tremors, weakness, other Endocrine: Denies: no symptoms, excessive sweating, flushing, intolerance to cold, intolerance to heat, increased hunger, increased thirst, increased urine, unexplained weight gain, unexplained weight loss, other Allergies: Coded Allergies: No Known Allergies (Unverified , 10/10/17) Subjective 09/16 on vent now, consulted in am pulm, on vent setting, labs noted, hep sq 09/17 meds noted, cbc noted, labs noted, no bleeding 09/18 is to undergo potential v/q scan given abg, labs noted, resless, on ativan, to get haldol today, roman rn 09/19 remains agitated, covering, with sacral wound seeping, likely cause of anemia, roman rn 09/26 restless, remains agitated, gtube ripped, eval with rn, and ifeoma consulted 09/27 remains on vent, agitated, seen by gi, hgb low, roman [place] to transfuse 1 unit prbc 09/28 meds noted, no bleeding, on vent, s/p blood tranfusion, cbc pending, roman ramesh 09/29 remains in the icu, roman rn in the am, agitated, on versed, fentanyl, restraints 09/30 in icu, trach to vent, on gtube feeds, fentanyl, agitated 10/01 in icu, roman Ayoub rn, no bleeding, sleeping, labs noted, hgb >9 10/02 sedated in icu, is on vent, roman rn, more alert and more conversive with face grimaces 10/03 labs have been reviewed, no bleeding, icu, meds reviewed, on fentanyl and versed, to consult psych 10/05 remains on fentanyl, also with restraints, no bleeding, cbc ordered 10/06 remains obtunded, though reactive when proded, labs pending from am 10/07 hypertensive, asleep, no bleeding, roman rn, no major night sweats\ 10/08 formula leaking from gtube site, no bleeding, with some minor residual 10/09 remains on gtube feeds, on lactulose, no major changes, confused but nods 10/10 labs reviewed, lactulose discontinued as having diarrhea, no bleeding 10/12 meds reviewed, no bleeding, heparin given, roman Starr rn in am, comfortable 10/13 labs are noted, no bleeding, cbc is ordered for today, somewhat agitated 10/14 has been complaining of pain and frowning, no bleeding, hgb reviewed 10/15 hgb 10.4, no bleeding, stool is hard, difficult to collect for c.diff 10/16 restless, agitated overnight, getting haldol prn, roman rn at bedside 10/17 labs are noted, no bleeding, meds reviewed, wbc 17k, on abx 10/19 labs are noted, no bleeding, meds noted, no major changes, with v/t, peg 10/20 on vent, with gtube and raymond, no bleeding, labs are noted 10/21 is trach to vent, with gtube in place, left ij hd in place, no bleeding 10/22 labs are noted, have been revierwed, no bleeding or chills, meds noted 10/23 labs reviewed, no bleeding, labs reviewed, no major changes overnight 10/24 no acute events, no bleeding, labs reviewed, remains on vent Objective Objective Current Medications Medications (Trade) Dose Ordered Sig/Penny Route PRN Reason Start Time Stop Time Status Last Admin Dose Admin Acetaminophen (Tylenol) 500 mg Q4H PRN GT Mild Pain (Pain Scale 1-3) 10/23/19 14:45 11/16/19 18:44 10/25/19 03:02 Ascorbic Acid (Vitamin C) 500 mg DAILY ORAL 10/11/19 09:00 11/05/19 08:59 10/24/19 08:32 Chlorhexidine Gluconate (Ling-Hex 2%) 1 applic DAILY@1999 TOPIC 10/11/19 20:00 12/22/19 19:59 10/24/19 19:25 Clonidine HCl (Catapres TTS-3) 1 patch QWEEK TDERMAL 10/14/19 12:00 01/12/20 11:59 10/21/19 12:26 Dextrose (Dextrose 50%) 25 ml Q30M PRN IV Hypoglycemia 10/11/19 04:30 01/03/20 18:29 Dextrose (Dextrose 50%) 50 ml Q30M PRN IV Hypoglycemia 10/11/19 04:30 01/03/20 18:29 Diltiazem HCl (Cardizem Tab) 60 mg Q8HR GT 10/24/19 14:00 11/09/19 11:59 10/24/19 13:13 Docusate Sodium (Colace) 100 mg Q8HR GT 10/14/19 14:01 11/13/19 14:00 10/25/19 05:10 Epoetin Gelacio (Epoetin Gelacio(ESRD on dialysis)) 10,000 unit MON-WED-MON SUBQ 10/14/19 21:00 01/12/20 20:59 10/23/19 21:11 Gentamicin Protocol (Gentamicin pharmacy to dose) 1 ea DAILY PRN MISC Per rx protocol 10/22/19 13:45 11/21/19 13:44 Haloperidol (Haldol) 5 mg BIDPRN PRN GT Agitation 10/23/19 17:00 12/07/19 16:59 10/24/19 19:25 Heparin Sodium (Porcine) (Heparin 5000 units/ml) 5,000 units EVERY 12 HOURS SUBQ 10/11/19 09:00 10/30/19 08:59 10/24/19 21:27 Hydromorphone HCl (Dilaudid) 2 mg Q8HR GT 10/23/19 22:00 10/30/19 12:59 10/25/19 05:11 Insulin Aspart (NovoLOG) Q6HR SUBQ 10/11/19 06:00 01/03/20 20:59 Lansoprazole (Prevacid) 30 mg Q12HR GT 10/11/19 09:00 10/27/19 20:59 10/24/19 21:25 Lisinopril (PriniviL) 20 mg BID GT 10/11/19 09:00 11/08/19 17:59 10/24/19 17:33 Metoclopramide HCl (Reglan) 5 mg EVERY 6 HOURS GT 10/11/19 06:00 11/08/19 11:59 10/25/19 05:10 Metolazone (Zaroxolyn) 2.5 mg DAILY GT 10/25/19 09:00 11/22/19 08:59 Minoxidil (Loniten) 5 mg Q8HR ORAL 10/22/19 14:00 01/08/20 13:59 10/25/19 05:11 Polyethylene Glycol (Miralax) 17 gm BEDTIME ORAL 10/11/19 21:00 10/31/19 20:59 10/24/19 21:27 Risperidone (RisperDAL) 2 mg BEDTIME ORAL 10/11/19 21:00 11/19/19 20:59 10/24/19 21:25 Sorbitol (sorbitoL) 30 ml EVERY 6 HOURS PRN GT Constipation 10/11/19 06:00 10/29/19 17:59 Vitamin B Complex/ Vit C/Folic Acid (Nephrovite) 1 tab DAILY ORAL 10/11/19 09:00 11/05/19 08:59 10/24/19 08:31 Last 24 Hour Vital Signs Date Time Temp Pulse Resp B/P (MAP) Pulse Ox O2 Delivery O2 Flow Rate FiO2 10/25/19 06:50 59 23 10/25/19 05:11 149/75 10/25/19 05:10 54 149/75 10/25/19 04:00 97.9 63 20 149/75 (99) 95 10/25/19 04:00 54 10/25/19 04:00 Mechanical Ventilator Mechanical Ventilator Mechanical Ventilator 10/25/19 04:00 40 10/25/19 03:04 55 26 10/25/19 00:00 98.1 50 20 124/59 (80) 97 10/25/19 00:00 Mechanical Ventilator Mechanical Ventilator Mechanical Ventilator 10/25/19 00:00 40 10/25/19 00:00 47 10/24/19 23:12 50 20 10/24/19 21:25 136/63 10/24/19 21:10 55 136/63 10/24/19 20:00 Mechanical Ventilator Mechanical Ventilator Mechanical Ventilator 10/24/19 20:00 59 10/24/19 20:00 98.5 55 20 136/63 (87) 96 10/24/19 20:00 40 10/24/19 19:29 60 27 10/24/19 17:33 117/53 10/24/19 16:00 40 10/24/19 16:00 61 10/24/19 16:00 98.1 59 20 112/52 (72) 98 10/24/19 16:00 Mechanical Ventilator Mechanical Ventilator Mechanical Ventilator 10/24/19 14:36 63 24 10/24/19 14:30 64 117/54 (75) 10/24/19 14:00 117/53 10/24/19 13:13 71 137/64 10/24/19 12:40 95 10/24/19 12:00 98.1 71 20 137/64 (88) 100 10/24/19 12:00 Mechanical Ventilator Mechanical Ventilator Mechanical Ventilator 10/24/19 12:00 40 10/24/19 12:00 60 10/24/19 11:05 65 24 40 10/24/19 08:31 126/58 10/24/19 08:00 Mechanical Ventilator Mechanical Ventilator Mechanical Ventilator 10/24/19 08:00 98.2 60 20 128/58 (81) 100 10/24/19 08:00 40 10/24/19 07:38 61 10/24/19 07:01 59 20 40 10/24/19 05:15 120/57 10/24/19 05:15 57 120/57 10/24/19 04:00 98.1 57 20 128/56 (80) 100 10/24/19 04:00 40 10/24/19 04:00 Mechanical Ventilator Mechanical Ventilator Mechanical Ventilator 10/24/19 03:39 57 10/24/19 02:55 52 20 40 10/24/19 00:00 98.2 53 20 119/57 (77) 100 10/24/19 00:00 Mechanical Ventilator Mechanical Ventilator Mechanical Ventilator 10/24/19 00:00 56 10/23/19 23:20 54 20 40 10/23/19 21:12 57 135/78 10/23/19 21:11 135/78 10/23/19 20:00 97.7 58 20 118/50 (72) 100 10/23/19 20:00 Mechanical Ventilator Mechanical Ventilator Mechanical Ventilator 10/23/19 20:00 40 10/23/19 19:05 55 20 40 10/23/19 19:03 55 10/23/19 17:25 132/62 10/23/19 16:00 40 10/23/19 16:00 97.8 61 20 145/76 (99) 100 10/23/19 16:00 Mechanical Ventilator Mechanical Ventilator Mechanical Ventilator 10/23/19 16:00 55 10/23/19 15:13 62 21 40 10/23/19 13:29 157/71 10/23/19 12:25 54 19 40 10/23/19 12:00 96.4 59 20 157/71 (99) 100 10/23/19 12:00 40 10/23/19 12:00 Mechanical Ventilator Mechanical Ventilator Mechanical Ventilator 10/23/19 11:50 55 11 40 40 10/23/19 11:31 57 Intake and Output 10/24/19 10/25/19 19:00 07:00 Intake Total 780 ml 640 ml Output Total 350 ml 200 ml Balance 430 ml 440 ml Intake Free Water 300 ml 200 ml Tube Feeding 480 ml 440 ml Output Urine Total 350 ml 200 ml # Bowel Movements 1 Labs Test 10/22/19 11:32 10/22/19 16:48 10/22/19 23:55 10/23/19 05:21 POC Whole Blood Glucose 113 MG/DL (74-106) 103 MG/DL (74-106) 120 MG/DL (74-106) Test 10/23/19 08:45 10/23/19 11:31 10/23/19 15:05 10/23/19 16:23 Sodium Level 136 MMOL/L (136-145) Potassium Level 4.1 MMOL/L (3.5-5.1) Chloride Level 100 MMOL/L (98-107) Carbon Dioxide Level 28 MMOL/L (21-32) Anion Gap 8 mmol/L (5-15) Blood Urea Nitrogen 87 mg/dL (7-18) Creatinine 2.4 MG/DL (0.55-1.30) Estimat Glomerular Filtration Rate 21.7 mL/min (>60) Glucose Level 117 MG/DL (74-106) Calcium Level 8.8 MG/DL (8.5-10.1) Phosphorus Level 4.0 MG/DL (2.5-4.9) Magnesium Level 3.2 MG/DL (1.8-2.4) Total Bilirubin 0.3 MG/DL (0.2-1.0) Aspartate Amino Transf (AST/SGOT) 17 U/L (15-37) Alanine Aminotransferase (ALT/SGPT) 11 U/L (12-78) Alkaline Phosphatase 171 U/L (46-116) Total Protein 6.7 G/DL (6.4-8.2) Albumin 1.7 G/DL (3.4-5.0) Globulin 5.0 g/dL Albumin/Globulin Ratio 0.3 (1.0-2.7) POC Whole Blood Glucose 98 MG/DL (74-106) 87 MG/DL (74-106) Random Gentamicin Level 2.0 ug/mL Test 10/23/19 23:25 10/24/19 02:50 10/24/19 05:13 10/24/19 12:42 POC Whole Blood Glucose 103 MG/DL (74-106) 110 MG/DL (74-106) 114 MG/DL (74-106) White Blood Count 9.9 K/UL (4.8-10.8) Red Blood Count 3.78 M/UL (4.20-5.40) Hemoglobin 11.4 G/DL (12.0-16.0) Hematocrit 34.5 % (37.0-47.0) Mean Corpuscular Volume 91 FL (80-99) Mean Corpuscular Hemoglobin 30.1 PG (27.0-31.0) Mean Corpuscular Hemoglobin Concent 33.0 G/DL (32.0-36.0) Red Cell Distribution Width 14.6 % (11.6-14.8) Platelet Count 378 K/UL (150-450) Mean Platelet Volume 4.8 FL (6.5-10.1) Neutrophils (%) (Auto) 73.7 % (45.0-75.0) Lymphocytes (%) (Auto) 18.2 % (20.0-45.0) Monocytes (%) (Auto) 5.1 % (1.0-10.0) Eosinophils (%) (Auto) 1.9 % (0.0-3.0) Basophils (%) (Auto) 1.2 % (0.0-2.0) Sodium Level 136 MMOL/L (136-145) Potassium Level 4.2 MMOL/L (3.5-5.1) Chloride Level 100 MMOL/L (98-107) Carbon Dioxide Level 26 MMOL/L (21-32) Anion Gap 10 mmol/L (5-15) Blood Urea Nitrogen 93 mg/dL (7-18) Creatinine 2.6 MG/DL (0.55-1.30) Estimat Glomerular Filtration Rate 19.7 mL/min (>60) Glucose Level 114 MG/DL (74-106) Calcium Level 9.2 MG/DL (8.5-10.1) Phosphorus Level 4.7 MG/DL (2.5-4.9) Magnesium Level 3.3 MG/DL (1.8-2.4) Total Bilirubin 0.3 MG/DL (0.2-1.0) Aspartate Amino Transf (AST/SGOT) 22 U/L (15-37) Alanine Aminotransferase (ALT/SGPT) 13 U/L (12-78) Alkaline Phosphatase 163 U/L (46-116) Total Protein 6.6 G/DL (6.4-8.2) Albumin 1.7 G/DL (3.4-5.0) Globulin 4.9 g/dL Albumin/Globulin Ratio 0.3 (1.0-2.7) Test 10/24/19 16:25 10/24/19 23:42 10/25/19 03:05 10/25/19 05:04 POC Whole Blood Glucose 99 MG/DL (74-106) 92 MG/DL (74-106) 113 MG/DL (74-106) White Blood Count 9.4 K/UL (4.8-10.8) Red Blood Count 3.82 M/UL (4.20-5.40) Hemoglobin 11.3 G/DL (12.0-16.0) Hematocrit 35.3 % (37.0-47.0) Mean Corpuscular Volume 92 FL (80-99) Mean Corpuscular Hemoglobin 29.5 PG (27.0-31.0) Mean Corpuscular Hemoglobin Concent 31.9 G/DL (32.0-36.0) Red Cell Distribution Width 14.3 % (11.6-14.8) Platelet Count 373 K/UL (150-450) Mean Platelet Volume 4.7 FL (6.5-10.1) Neutrophils (%) (Auto) 67.4 % (45.0-75.0) Lymphocytes (%) (Auto) 19.6 % (20.0-45.0) Monocytes (%) (Auto) 6.2 % (1.0-10.0) Eosinophils (%) (Auto) 5.8 % (0.0-3.0) Basophils (%) (Auto) 1.0 % (0.0-2.0) Sodium Level 134 MMOL/L (136-145) Potassium Level 4.2 MMOL/L (3.5-5.1) Chloride Level 99 MMOL/L (98-107) Carbon Dioxide Level 27 MMOL/L (21-32) Anion Gap 8 mmol/L (5-15) Blood Urea Nitrogen 97 mg/dL (7-18) Creatinine 2.7 MG/DL (0.55-1.30) Estimat Glomerular Filtration Rate 18.9 mL/min (>60) Glucose Level 99 MG/DL (74-106) Uric Acid 8.3 MG/DL (2.6-7.2) Calcium Level 9.3 MG/DL (8.5-10.1) Phosphorus Level 5.5 MG/DL (2.5-4.9) Magnesium Level 3.3 MG/DL (1.8-2.4) Total Bilirubin 0.3 MG/DL (0.2-1.0) Aspartate Amino Transf (AST/SGOT) 23 U/L (15-37) Alanine Aminotransferase (ALT/SGPT) 12 U/L (12-78) Alkaline Phosphatase 166 U/L (46-116) C-Reactive Protein, Quantitative 4.9 mg/dL (0.00-0.90) Pro-B-Type Natriuretic Peptide 44237 pg/mL (0-125) Total Protein 6.6 G/DL (6.4-8.2) Albumin 1.7 G/DL (3.4-5.0) Globulin 4.9 g/dL Albumin/Globulin Ratio 0.3 (1.0-2.7) Random Gentamicin Level 3.3 ug/mL Height (Feet): 5 Height (Inches): 5.00 Weight (Pounds): 134 Objective Physical Exam: Vitals: reviewed General: NAD HEENT: nc, at Neck: supple ++tracn/vent Chest: clear breath sounds bilaterally Cardiovascular: RRR, no s3, s4 Abdomen: soft, nontender, nd +gtube Extremities: no cce, normal range of motion Neuro: alert Evan Muhammad MD Oct 25, 2019 08:32
[2019-10-25] MEDS: Heparin 5000 units/ml inj SUBQ SCH ×2 (09:35→20:23)
[2019-10-25] MEDS: metOLazone 2.5 MG TAB GT SCH (09:36)
[2019-10-25] MEDS: Nephrovite tab (Rena-Vite) ORAL SCH (09:36)
[2019-10-25] MEDS: Ascorbic Acid 500mg tab ORAL SCH (09:38)
[2019-10-25] MEDS: Lisinopril 20mg tab GT SCH ×2 (09:38→18:00)
--- NOTE | 2019-10-25 09:50 | General Progress Note ---
Assessment/Plan Problem List: (1) S/P aortic dissection repair ICD Codes: Z98.890 - Other specified postprocedural states SNOMED: 709651116, 495022543 (2) Sacral decubitus ulcer, stage IV ICD Codes: L89.154 - Pressure ulcer of sacral region, stage 4 SNOMED: 315124939, 702706931 (3) Anemia ICD Codes: D64.9 - Anemia, unspecified SNOMED: 871204442 (4) GT CLOGGED (5) Feeding by G-tube ICD Codes: Z93.1 - Gastrostomy status SNOMED: 334420244, 780970280 (6) Tracheostomy in place ICD Codes: Z93.0 - Tracheostomy status SNOMED: 907208682 (7) Pacemaker ICD Codes: Z95.0 - Presence of cardiac pacemaker SNOMED: 080926831 (8) Chronic respiratory failure ICD Codes: J96.10 - Chronic respiratory failure, unspecified whether with hypoxia or hypercapnia SNOMED: 25158331 Status: stable, other - Mood has improved he is able to smile there is no continuous tearing overall she looks better today energy looking the last several days continue with the same management Assessment/Plan: GTF min GT leak on reglan monitor for residuals repeat labs abx per ID respiratory care dc planning per primary team Subjective ROS Limited/Unobtainable: No Allergies: Coded Allergies: No Known Allergies (Unverified , 10/10/17) Objective Last 24 Hour Vital Signs Date Time Temp Pulse Resp B/P (MAP) Pulse Ox O2 Delivery O2 Flow Rate FiO2 10/25/19 09:38 129/76 10/25/19 08:00 Mechanical Ventilator Mechanical Ventilator Mechanical Ventilator 10/25/19 08:00 40 10/25/19 08:00 97.6 61 16 127/63 (84) 95 10/25/19 06:50 59 23 10/25/19 05:11 149/75 10/25/19 05:10 54 149/75 10/25/19 04:00 97.9 63 20 149/75 (99) 95 10/25/19 04:00 54 10/25/19 04:00 Mechanical Ventilator Mechanical Ventilator Mechanical Ventilator 10/25/19 04:00 40 10/25/19 03:04 55 26 10/25/19 00:00 98.1 50 20 124/59 (80) 97 10/25/19 00:00 Mechanical Ventilator Mechanical Ventilator Mechanical Ventilator 10/25/19 00:00 40 10/25/19 00:00 47 10/24/19 23:12 50 20 10/24/19 21:25 136/63 10/24/19 21:10 55 136/63 10/24/19 20:00 Mechanical Ventilator Mechanical Ventilator Mechanical Ventilator 10/24/19 20:00 59 10/24/19 20:00 98.5 55 20 136/63 (87) 96 10/24/19 20:00 40 10/24/19 19:29 60 27 10/24/19 17:33 117/53 10/24/19 16:00 40 10/24/19 16:00 61 10/24/19 16:00 98.1 59 20 112/52 (72) 98 10/24/19 16:00 Mechanical Ventilator Mechanical Ventilator Mechanical Ventilator 10/24/19 14:36 63 24 10/24/19 14:30 64 117/54 (75) 10/24/19 14:00 117/53 10/24/19 13:13 71 137/64 10/24/19 12:40 95 10/24/19 12:00 98.1 71 20 137/64 (88) 100 10/24/19 12:00 Mechanical Ventilator Mechanical Ventilator Mechanical Ventilator 10/24/19 12:00 40 10/24/19 12:00 60 10/24/19 11:05 65 24 40 Intake and Output 10/24/19 10/25/19 19:00 07:00 Intake Total 780 ml 640 ml Output Total 350 ml 200 ml Balance 430 ml 440 ml Intake Free Water 300 ml 200 ml Tube Feeding 480 ml 440 ml Output Urine Total 350 ml 200 ml # Bowel Movements 1 Laboratory Tests 10/24/19 12:42: POC Whole Blood Glucose 114H 10/24/19 16:25: POC Whole Blood Glucose 99 10/24/19 23:42: POC Whole Blood Glucose 92 10/25/19 03:05: White Blood Count 9.4, Red Blood Count 3.82L, Hemoglobin 11.3L, Hematocrit 35.3L , Mean Corpuscular Volume 92, Mean Corpuscular Hemoglobin 29.5, Mean Corpuscular Hemoglobin Concent 31.9L, Red Cell Distribution Width 14.3, Platelet Count 373, Mean Platelet Volume 4.7L, Neutrophils (%) (Auto) 67.4, Lymphocytes (%) (Auto) 19.6L, Monocytes (%) (Auto) 6.2, Eosinophils (%) (Auto) 5.8H, Basophils (%) (Auto) 1.0, Sodium Level 134L, Potassium Level 4.2, Chloride Level 99, Carbon Dioxide Level 27, Anion Gap 8, Blood Urea Nitrogen 97H , Creatinine 2.7H, Estimat Glomerular Filtration Rate 18.9, Glucose Level 99, Uric Acid 8.3H, Calcium Level 9.3, Phosphorus Level 5.5H, Magnesium Level 3.3H, Total Bilirubin 0.3, Aspartate Amino Transf (AST/SGOT) 23, Alanine Aminotransferase (ALT/SGPT) 12, Alkaline Phosphatase 166H, C-Reactive Protein, Quantitative 4.9H, Pro-B-Type Natriuretic Peptide 33516I, Total Protein 6.6, Albumin 1.7L, Globulin 4.9, Albumin/Globulin Ratio 0.3L, Random Gentamicin Level 3.3 10/25/19 05:04: POC Whole Blood Glucose 113H Height (Feet): 5 Height (Inches): 5.00 Weight (Pounds): 134 General Appearance: no apparent distress EENT: normal ENT inspection Neck: supple Cardiovascular: normal rate Respiratory/Chest: decreased breath sounds Abdomen: normal bowel sounds, non tender, soft Extremities: non-tender Inder Mccauley MD Oct 25, 2019 09:50
--- NOTE | 2019-10-25 11:06 | Pulmonology Progress Note ---
Yara Castro [employer]PERATOR 10/25/19 1106: Subjective ROS Limited/Unobtainable: Yes Allergies: Coded Allergies: No Known Allergies (Unverified , 10/10/17) Subjective in PAULIE tolerates CPAP trials with PS 8 for 8 hrs no signs of resp distress denies CP, SOB remains afebrile, no leukocytosis dc plan in progress Objective Last 24 Hour Vital Signs Date Time Temp Pulse Resp B/P (MAP) Pulse Ox O2 Delivery O2 Flow Rate FiO2 10/25/19 10:35 56 27 10/25/19 09:38 129/76 10/25/19 09:00 94 10/25/19 08:00 Mechanical Ventilator Mechanical Ventilator Mechanical Ventilator 10/25/19 08:00 40 10/25/19 08:00 97.6 61 16 127/63 (84) 95 10/25/19 08:00 68 10/25/19 06:50 59 23 10/25/19 05:11 149/75 10/25/19 05:10 54 149/75 10/25/19 04:00 97.9 63 20 149/75 (99) 95 10/25/19 04:00 54 10/25/19 04:00 Mechanical Ventilator Mechanical Ventilator Mechanical Ventilator 10/25/19 04:00 40 10/25/19 03:04 55 26 10/25/19 00:00 98.1 50 20 124/59 (80) 97 10/25/19 00:00 Mechanical Ventilator Mechanical Ventilator Mechanical Ventilator 10/25/19 00:00 40 10/25/19 00:00 47 10/24/19 23:12 50 20 10/24/19 21:25 136/63 10/24/19 21:10 55 136/63 10/24/19 20:00 Mechanical Ventilator Mechanical Ventilator Mechanical Ventilator 10/24/19 20:00 59 10/24/19 20:00 98.5 55 20 136/63 (87) 96 10/24/19 20:00 40 10/24/19 19:29 60 27 10/24/19 17:33 117/53 10/24/19 16:00 40 10/24/19 16:00 61 10/24/19 16:00 98.1 59 20 112/52 (72) 98 10/24/19 16:00 Mechanical Ventilator Mechanical Ventilator Mechanical Ventilator 10/24/19 14:36 63 24 10/24/19 14:30 64 117/54 (75) 10/24/19 14:00 117/53 10/24/19 13:13 71 137/64 10/24/19 12:40 95 10/24/19 12:00 98.1 71 20 137/64 (88) 100 10/24/19 12:00 Mechanical Ventilator Mechanical Ventilator Mechanical Ventilator 10/24/19 12:00 40 10/24/19 12:00 60 10/24/19 11:05 65 24 40 Intake and Output 10/24/19 10/25/19 19:00 07:00 Intake Total 780 ml 640 ml Output Total 350 ml 200 ml Balance 430 ml 440 ml Intake Free Water 300 ml 200 ml Tube Feeding 480 ml 440 ml Output Urine Total 350 ml 200 ml # Bowel Movements 1 Objective General Appearance: no apparent distress, bedridden middle age chronically ill looking female on vent AC 500-20- 40%, PEEP 5, awake, calm-currently on CPAP PS8 Lines, tubes and drains: left jugular HD catheter HEENT: normocephalic, atraumatic, anicteric, trach - Shiley #7 cuffed XLT, secretions small amount, yellow color , thick consistency Respiratory/Chest: no accessory muscle use, BS overall CTAB Cardiovascular/Chest: normal rate, regular rhythm - SR on tele Abdomen: normal bowel sounds, non tender, soft, G tube Genitourinary/Rectal: Norman Extremities: no edema Skin Exam: warm/dry, multiple tattoos all over the body Neurologic: awake, no gross focal Musculoskeletal: atrophy - BLE Laboratory Tests 10/24/19 12:42: POC Whole Blood Glucose 114H 10/24/19 16:25: POC Whole Blood Glucose 99 10/24/19 23:42: POC Whole Blood Glucose 92 10/25/19 03:05: White Blood Count 9.4, Red Blood Count 3.82L, Hemoglobin 11.3L, Hematocrit 35.3L , Mean Corpuscular Volume 92, Mean Corpuscular Hemoglobin 29.5, Mean Corpuscular Hemoglobin Concent 31.9L, Red Cell Distribution Width 14.3, Platelet Count 373, Mean Platelet Volume 4.7L, Neutrophils (%) (Auto) 67.4, Lymphocytes (%) (Auto) 19.6L, Monocytes (%) (Auto) 6.2, Eosinophils (%) (Auto) 5.8H, Basophils (%) (Auto) 1.0, Sodium Level 134L, Potassium Level 4.2, Chloride Level 99, Carbon Dioxide Level 27, Anion Gap 8, Blood Urea Nitrogen 97H , Creatinine 2.7H, Estimat Glomerular Filtration Rate 18.9, Glucose Level 99, Uric Acid 8.3H, Calcium Level 9.3, Phosphorus Level 5.5H, Magnesium Level 3.3H, Total Bilirubin 0.3, Aspartate Amino Transf (AST/SGOT) 23, Alanine Aminotransferase (ALT/SGPT) 12, Alkaline Phosphatase 166H, C-Reactive Protein, Quantitative 4.9H, Pro-B-Type Natriuretic Peptide 55497M, Total Protein 6.6, Albumin 1.7L, Globulin 4.9, Albumin/Globulin Ratio 0.3L, Random Gentamicin Level 3.3 10/25/19 05:04: POC Whole Blood Glucose 113H Current Medications Medications (Trade) Dose Ordered Sig/Penny Route PRN Reason Start Time Stop Time Status Last Admin Dose Admin Acetaminophen (Tylenol) 500 mg Q4H PRN GT Mild Pain (Pain Scale 1-3) 10/23/19 14:45 11/16/19 18:44 10/25/19 03:02 Ascorbic Acid (Vitamin C) 500 mg DAILY ORAL 10/11/19 09:00 11/05/19 08:59 10/25/19 09:38 Chlorhexidine Gluconate (Ling-Hex 2%) 1 applic DAILY@2000 TOPIC 10/11/19 20:00 12/22/19 19:59 10/24/19 19:25 Clonidine HCl (Catapres TTS-3) 1 patch QWEEK TDERMAL 10/14/19 12:00 01/12/20 11:59 10/21/19 12:26 Dextrose (Dextrose 50%) 25 ml Q30M PRN IV Hypoglycemia 10/11/19 04:30 01/03/20 18:29 Dextrose (Dextrose 50%) 50 ml Q30M PRN IV Hypoglycemia 10/11/19 04:30 01/03/20 18:29 Diltiazem HCl (Cardizem Tab) 60 mg Q8HR GT 10/24/19 14:00 11/09/19 11:59 10/24/19 13:13 Docusate Sodium (Colace) 100 mg Q8HR GT 10/14/19 14:01 11/13/19 14:00 10/25/19 05:10 Epoetin Gelacio (Epoetin Gelacio(ESRD on dialysis)) 10,000 unit MON-MON-MON SUBQ 10/14/19 21:00 01/12/20 20:59 10/23/19 21:11 Gentamicin Protocol (Gentamicin pharmacy to dose) 1 ea DAILY PRN MISC Per rx protocol 10/22/19 13:45 11/21/19 13:44 Haloperidol (Haldol) 5 mg BIDPRN PRN GT Agitation 10/23/19 17:00 12/07/19 16:59 10/25/19 09:36 Heparin Sodium (Porcine) (Heparin 5000 units/ml) 5,000 units EVERY 12 HOURS SUBQ 10/11/19 09:00 10/30/19 08:59 10/25/19 09:35 Hydromorphone HCl (Dilaudid) 2 mg Q8HR GT 10/23/19 22:00 10/30/19 12:59 10/25/19 05:11 Insulin Aspart (NovoLOG) Q6HR SUBQ 10/11/19 06:00 01/03/20 20:59 Lansoprazole (Prevacid) 30 mg Q12HR GT 10/11/19 09:00 10/27/19 20:59 10/25/19 09:36 Lisinopril (PriniviL) 20 mg BID GT 10/11/19 09:00 11/08/19 17:59 10/25/19 09:38 Metoclopramide HCl (Reglan) 5 mg EVERY 6 HOURS GT 10/11/19 06:00 11/08/19 11:59 10/25/19 05:10 Metolazone (Zaroxolyn) 2.5 mg DAILY GT 10/25/19 09:00 11/22/19 08:59 10/25/19 09:36 Minoxidil (Loniten) 5 mg Q8HR ORAL 10/22/19 14:00 01/08/20 13:59 10/25/19 05:11 Polyethylene Glycol (Miralax) 17 gm BEDTIME ORAL 10/11/19 21:00 10/31/19 20:59 10/24/19 21:27 Risperidone (RisperDAL) 2 mg BEDTIME ORAL 10/11/19 21:00 11/19/19 20:59 10/24/19 21:25 Sorbitol (sorbitoL) 30 ml EVERY 6 HOURS PRN GT Constipation 10/11/19 06:00 10/29/19 17:59 Vitamin B Complex/ Vit C/Folic Acid (Nephrovite) 1 tab DAILY ORAL 10/11/19 09:00 11/05/19 08:59 10/25/19 09:36 Assessment/Plan Assessment/Plan ASSESSMENT Acute on chronic hypoxemic respiratory failure ( trach dependent), now on vent Tracheostomy status, s/p change to cuffed trach Sepsis Pulmonary edema Pleural effusion -worsening left pl effusion s/p thoracentesis L pleural effusion 09/26 -900 ml Pneumonia with MDR Pseudomonas UTI CHF ? cardiorenal COPD Acute kidney injury and chronic kidney disease-requiring start of HD Hypertension Atrial fibrillation Moderate pulm HTN Moderate AR Dysphagia , feeding by G-tube Electrolyte abnormalities Anemia Toxic metabolic encephalopathy likely due to sepsis and ARF HTN PAF Fevers. leukocytosis -resolved PLAN OF CARE PAULIE on vent AC trach changed 8/4 pm from uncuffed to cuffed Shiley#[address] chest w/out contrast: - Bilateral pleural effusions, right greater than left, with bilateral lower lobe consolidation or volume loss. -Ground-glass densities in the upper lobes bilaterally. This is not specific. -Tracheostomy. -Increased superior mediastinal density. Stability of adenopathy cannot be excluded. -Atherosclerotic change. -Gastrostomy. -Ascites. -Left renal stent with left hydronephrosis and renal atrophy. VQ scan -> low probability for PE worsening resp status was due to need for HD, now after HD started, resp status improving, down to PEEP 5 and AC 20 trach care , pulmonary toilet Mucomyst was prior dc given lots of thin secretions, continue Duoneb prn rapid COVID 19 NGT x3 off Fentanyl gtt since 10/09 FiO2 down to 40% last ABG stable 10/09 CXR 10/14 -increased right pleural fluid and parenchymal disease, doubt PNA likely fluid tolerating CPAP trials with PS 8 FiO2 40% 10/18-for 8 hrs continue CPAP trials as tolerated may continue in subacute upon discharge s/p thoracentesis L pleural effusion 09/26 am -> 900 ml fluid analysis noted, unlikely empyema given small # of WBC fup with fluid cx ( apparently never sent despite orders) cytology -> NGT, no malignant cells aspiration precautions venous Duplex BLE -> NGT DVT prophylaxis pulm toilet, BP regimen optimized as per nephro monitor volumes was on gentle IVF-> dc s/p prior diuretic-Lasix require initiation of HD continue further HD as per nephro with close monitoring of volumes, renal parameters and lytes -per nephro recs abx as per ID- recently pancx 10/14 due to fever and leukocytosis 10/14 BCX NGTD UCX 10/14 + Providencia, MDR, SCX+ Proteus ESBL, Pseudomonas MDR CXR 10/12 stable leuk 10/17, started on meropenem 10/17 -> as per ID recs, CXR 10/17 bilateral pleural effusions demonstrated. Mild interstitial and airspace congestion unchanged. no fevers abx changed to Gent 10/21-> for Pseudomonas MDR given prior fevers and mild leukocytosis, both resolved ECHO with pEF , moderate pulm HTN and moderate AR BP management with current regimen of BB, Cardizem and Hydralazine, remains in SR monitor HH with goal to keep Hgb >7, heme on board on EPO supportive care pain management wound care bowel regimen stable for dc from pulm standpoint dc plan in progress , challenging placement due to chronic resp failure ( need sebacate) and need for HD case discussed and evaluated by supervising physician Juve Martinez MD 10/25/19 1648: Subjective Allergies: Coded Allergies: No Known Allergies (Unverified , 10/10/17) Assessment/Plan Assessment/Plan Patient seen and examined with [employer]ATING OPERATOR. Agree with above A&P as it reflects our joint deliberations. Yara Castro NP Oct 25, 2019 11:06 Juve Martinez MD Oct 25, 2019 16:48
[2019-10-25 12:00] VITALS: BP 147/74
--- NOTE | 2019-10-25 12:32 | Nephrology Progress Note ---
Assessment/Plan Problem List: (1) JAVIER (acute kidney injury) (2) Renal failure (ARF), acute on chronic (3) Dehydration (4) Electrolyte imbalance (5) Anemia (6) Respiratory failure, acute and chronic (7) COPD with exacerbation Assessment Patient is presented with sepsis and pneumonia and UTI Patient has acute renal failure, possible underlying chronic kidney failure Severe anemia Electrolyte imbalances: Hyponatremia, hypo-kalemia Chronic respiratory failure, COPD exacerbation Plan October 24: Labs reviewed. Serum creatinine slightly higher. Renal failure has an obvious prerenal picture. Up to the point that the urine output is maintained we can do for dialysis. Continue to monitor acid-base condition. October 23: Discharge canceled due to logistic reasons. Serum creatinine going up. Will adjust blood pressure medications. Down on Zaroxolyn dose. Check chemistry panel tomorrow. Continue to watch the heart rate closely. October 22: Patient last dialysis October 16. Serum creatinine is creeping up. Clinically the patient is stable. Urine output remains reasonable. Continue current management. Upon discharge patient needs to be followed medical sales representative and arrange for as needed dialysis and ultrafiltration. Discussed with ERASMO Sen. October 21: Patient's last dialysis was October 16. Patient has been responding to Zaroxolyn, with decent urine output, and serum creatinine being stable. At this time will abort dialysis plan and continue per current management. Blood pressure medication adjusted. October 20: Patient appears to be responding to Zaroxolyn. Will repeat 10 mg Zaroxolyn via GT today. Continue monitor renal parameters. Potassium supplements given. Dialysis as needed. October 19: Patient responded to Zaroxolyn. Urine output increased. Will try 10 mg Zaroxolyn again today. Check renal parameters tomorrow. Dialysis as needed. October 18: Last dialysis October 16. Serum creatinine rising. Oliguria persists. Continue to monitor renal parameters and dialysis as needed. October 17: It appears that the patient received dialysis last night and the dialysis nurse changed her mind about delaying to today. Today's labs reviewed. Electrolyte abnormalities corrected. Continue per consultants. October 16: Late note entry due to [place] problem [place] [facility] [place]Patient due for dialysis today. Dialysis nurse informed that due to few emergencies if she can be done tomorrow. No chemistry panel for today." We will order labs on dialysis tomorrow. October 2: Last dialysis October 13. Labs were reviewed. Urine output very low. Will dialyze and ultrafiltrate tomorrow. Per consultants. October 14: Dialyzed yesterday. Labs reviewed. Medication list reviewed. Continue per consultants. October 13: Patient seen on dialysis. Tolerating well. Will check labs tomorrow. October 12: Blood pressure stable. Labs reviewed. BUN rising. Remains oliguric. Dialysis tomorrow. October 11: Blood pressure is stable. Labs reviewed. Continue as is. Dialysis as needed October 10: Blood pressure medication adjusted. Will check lab tomorrow. Dialysis as needed. Urine output remains low. October 09: Lab reviewed. Remains oliguric. Will give trial of Zaroxolyn. Continue per consultants. Adjust blood pressure medication. Will add Zaroxolyn and increased dose of Cardizem and add clonidine patch for better BP control October 08: Labs reviewed. Patient oliguric. Blood pressure elevated, BP medication adjusted. Recheck lab tomorrow. Dialysis and ultrafiltration as needed. October 07: Labs reviewed. Patient was dialyzed yesterday. 3000 mL fluid was removed. Patient appears to need periodic (twice a week minimum) dialysis for ultrafiltration. Continue to monitor renal parameters. Continue per consultants. October 06: Labs reviewed. Discussed with pulmonary. Will attempt dialysis and ultrafiltration. Continue per consultants. October 05: Lab reviewed. Serum creatinine rising. Blood pressure stabilized. Will recheck lab tomorrow. Dialysis as needed. Will increase lisinopril to 10 mg twice a day. October 04: Lab reviewed. Blood pressure medication adjusted since the patient is hypotensive. Serum creatinine rising. Recheck labs tomorrow. Dialysis as needed. Discussed with RN. October 03: Lab reviewed. Zestril added to BP medication. 1 dose of Seroquel ordered for agitation. Continue to monitor renal parameters. Continue per consultants. October 02: Lab reviewed. Potassium supplement IV given. 3% saline 250 cc ordered. Responded well to Zaroxolyn yesterday. Will continue to monitor electrolytes and renal parameters. Will increase minoxidil to 2.5 mg every 6 hours. October 01: Labs reviewed. Potassium supplement given. Last dialysis September 29. Serum creatinine rising gradually. Urine output very low. Patient appears to continue to need dialysis at least twice a week. Blood pressure still running high I will switch the hydralazine to minoxidil. We will give 1 dose of Zaroxolyn 10 mg today. Will check renal parameters tomorrow. September 30: Patient dialyzed yesterday. 3 L removed. Labs reviewed. Potassium supplement given. Continue per consultants. It appears that the patient required dialysis 2-3 times a week. September 29: Lab reviewed. Chest x-ray result noted. Continues to have pulmonary congestion. Urine output low. Will attempt dialysis again today with ultrafiltration. September 28: Lab reviewed. ABG reviewed. Potassium supplement given. No dialysis at this point. Will eval patient status and renal parameters daily. September 27: Lab reviewed. Last dialysis September 25. Continue to monitor renal parameters. Hemodialysis as needed. September 26: Lab reviewed. Dialyzed yesterday. Potassium supplement given. Medication list reviewed. Will observe renal parameters and arrange for dialysis as needed. September 25: Lab reviewed. Currently on hemodialysis. Tolerating well. Stable from renal standpoint of view. Blood pressure medication adjusted by increasing hydralazine. September 24: Lab reviewed. ABG reviewed. Both lab and ABG much improved. Patient was dialyzed yesterday. We will attempt dialysis tomorrow again. Will adjust that blood pressure medication dosages. September 23: Lab reviewed. ABG reviewed. Patient acidotic. IV bicarb 1 dose is given. Patient has dialysis catheter. Will order dialysis for ultrafiltration and correction of acid-base. Discussed with ERASMO Mohr. September 22: Labs reviewed. Potassium high. Kayexalate and Reglan given. Will discuss with the consultants regarding initiation of dialysis. September 21: Patient is being sedated. Labs reviewed. Potassium supplement discontinued. GFR 20. Continue per current treatment plan. Dialysis and ultrafiltration is a consideration. September 20: Patient periodically agitated. Labs reviewed. Creatinine 2.4. Medication reviewed. Continue per consultants. Calculated creatinine clearance 21. May need isolated ultrafiltration on dialysis. Will discuss with PMD. Meanwhile hemoglobin is lower, defer transfusion to PMD. September 19: DC IV fluid. Zaroxolyn via GT tube. Potassium supplement. Attempt to diurese. Chest CT as bilateral pleural effusion. If diuresis unsuccessful, will consider dialysis and ultrafiltration. September 18: Potassium supplement IV given. Hemoglobin stable. Patient remains full code. Continue per consultants. Previously: Potassium supplement IV Slow IV hydration Epogen subcu Adjust blood pressure medication IV fluid, rate adjusted Norman catheter, intake and output Monitor renal parameters Avoid nephrotoxic's Antibiotics Per orders 2D echocardiogram Kidney ultrasound Subjective ROS Limited/Unobtainable: Yes Objective Objective Last 24 Hour Vital Signs Date Time Temp Pulse Resp B/P (MAP) Pulse Ox O2 Delivery O2 Flow Rate FiO2 10/25/19 11:58 97.6 10/25/19 10:35 56 27 10/25/19 09:38 129/76 10/25/19 09:00 94 10/25/19 08:00 Mechanical Ventilator Mechanical Ventilator Mechanical Ventilator 10/25/19 08:00 40 10/25/19 08:00 97.6 61 16 127/63 (84) 95 10/25/19 08:00 68 10/25/19 06:50 59 23 10/25/19 05:11 149/75 10/25/19 05:10 54 149/75 10/25/19 04:00 97.9 63 20 149/75 (99) 95 10/25/19 04:00 54 10/25/19 04:00 Mechanical Ventilator Mechanical Ventilator Mechanical Ventilator 10/25/19 04:00 40 10/25/19 03:04 55 26 10/25/19 00:00 98.1 50 20 124/59 (80) 97 10/25/19 00:00 Mechanical Ventilator Mechanical Ventilator Mechanical Ventilator 10/25/19 00:00 40 10/25/19 00:00 47 10/24/19 23:12 50 20 10/24/19 21:25 136/63 10/24/19 21:10 55 136/63 10/24/19 20:00 Mechanical Ventilator Mechanical Ventilator Mechanical Ventilator 10/24/19 20:00 59 10/24/19 20:00 98.5 55 20 136/63 (87) 96 10/24/19 20:00 40 10/24/19 19:29 60 27 10/24/19 17:33 117/53 10/24/19 16:00 40 10/24/19 16:00 61 10/24/19 16:00 98.1 59 20 112/52 (72) 98 10/24/19 16:00 Mechanical Ventilator Mechanical Ventilator Mechanical Ventilator 10/24/19 14:36 63 24 10/24/19 14:30 64 117/54 (75) 10/24/19 14:00 117/53 10/24/19 13:13 71 137/64 10/24/19 12:40 95 Intake and Output 10/24/19 10/25/19 19:00 07:00 Intake Total 780 ml 640 ml Output Total 350 ml 200 ml Balance 430 ml 440 ml Intake Free Water 300 ml 200 ml Tube Feeding 480 ml 440 ml Output Urine Total 350 ml 200 ml # Bowel Movements 1 Laboratory Tests 10/24/19 12:42: POC Whole Blood Glucose 114H 10/24/19 16:25: POC Whole Blood Glucose 99 10/24/19 23:42: POC Whole Blood Glucose 92 10/25/19 03:05: White Blood Count 9.4, Red Blood Count 3.82L, Hemoglobin 11.3L, Hematocrit 35.3L , Mean Corpuscular Volume 92, Mean Corpuscular Hemoglobin 29.5, Mean Corpuscular Hemoglobin Concent 31.9L, Red Cell Distribution Width 14.3, Platelet Count 373, Mean Platelet Volume 4.7L, Neutrophils (%) (Auto) 67.4, Lymphocytes (%) (Auto) 19.6L, Monocytes (%) (Auto) 6.2, Eosinophils (%) (Auto) 5.8H, Basophils (%) (Auto) 1.0, Sodium Level 134L, Potassium Level 4.2, Chloride Level 99, Carbon Dioxide Level 27, Anion Gap 8, Blood Urea Nitrogen 97H , Creatinine 2.7H, Estimat Glomerular Filtration Rate 18.9, Glucose Level 99, Uric Acid 8.3H, Calcium Level 9.3, Phosphorus Level 5.5H, Magnesium Level 3.3H, Total Bilirubin 0.3, Aspartate Amino Transf (AST/SGOT) 23, Alanine Aminotransferase (ALT/SGPT) 12, Alkaline Phosphatase 166H, C-Reactive Protein, Quantitative 4.9H, Pro-B-Type Natriuretic Peptide 95617S, Total Protein 6.6, Albumin 1.7L, Globulin 4.9, Albumin/Globulin Ratio 0.3L, Random Gentamicin Level 3.3 10/25/19 05:04: POC Whole Blood Glucose 113H Height (Feet): 5 Height (Inches): 5.00 Weight (Pounds): 134 General Appearance: no apparent distress EENT: other - On ventilator Cardiovascular: normal rate Respiratory/Chest: decreased breath sounds Abdomen: distended Objective No change Johnny Houston MD Oct 25, 2019 12:32
--- NOTE | 2019-10-25 14:22 | Infectious Diseases Prog Note ---
Assessment/Plan 49yo F with: Fever, recurrent; SP Leukocytosis, recurrent- SP -10/14 Bcx NTD Acute hypoxic resp failure: Now on vent, worsening, FiO2 100% > 80% 09/27 > 60% >40% 10/08 >30% 10/09 >40% 10/14 Pneumonia, COVID19 neg x3 - MDR PsA pneumonia,s pr x 10/23 CXR: Slightly improved bilateral pleural effusions and retrocardiac consolidation, since 10/18/201910/14 CXR: Increased right pleural fluid and parenchymal disease, since previous exam of 10/09/2019. Stable pleural and parenchymal disease on the left sp cx ESBL P. mirabilis, MDR P.a. ( S only to Gent) 10/07 CXR: Bilateral infiltrates versus edema, left greater than right pleural effusions are again demonstrated, unchanged. There is slightly better inspiration currently. 09/29 CXR: Bilateral edema versus infiltrates appears slightly worse than on the prior study. There is probably some pleural fluid on the left. 09/26 S/P thoracentesis, 900cc removed, only 67 WBC in fluid analysis, unlikely empyema 09/26 CXR: Worsening R perihilar opacity 09/26 BCx Neg 09/24 CXR: Previously demonstrated right lateral basilar lucency is no longer evident, was presumably a skin fold artifact. Bilateral infiltrates and left pleural effusion are probably unchanged allowing for slight differences in technique. 09/22 Resp cx + MDR PsA (S-gent; I-colistin; R-levofloxacin, Zosyn, angelo) 09/22 BCx NTD 09/22 CXR: worsening BL pna 09/22 UA w/ persistent pyuria, now on HD, UCx +VRE, most likely colonizer as improving wo tx for this 09/19 V/Q scan, low probability of PE 09/18 Rapid COVID PCR neg 09/18 CT chest: Markedly suboptimal examination due to lack of IV contrast material. Bilateral pleural effusions, right greater than left, with bilateral lower lobe consolidation or volume loss. Ground glass densities in the upper lobes bilaterally. This is not specific. Tracheostomy. Increased superior mediastinal density. Stability of adenopathy cannot be excluded. Atherosclerotic change. Gastrostomy. Ascites. Left renal stent with left hydronephrosis and renal atrophy. 09/17 Chest US: Trace right and small left pleural effusions. No safe window identified for bedside thoracentesis. Note that the majority of the left pleural effusion is subpulmonic. 09/16 CXR: Worsening of right lung infiltrates and right effusion. V. duplex: NO DVT D-dimer elevated 09/15 Rapid COVID PCR neg 09/15 Sp cx ESBL P. mirablis 09/14 CXR: Bilateral airspace opacities, preferentially involving the right lung, consistent with multifocal infiltrate. Trace bilateral pleural effusions. No pneumothorax. Rapid COVID PCR neg Urine legionella neg 09/16 GPC bacteremia, real vs contaminant; does have hx of infected PPM- 09/14 Bcx 03/19 S. epidermis; 09/15, , Bcx Neg 2d echo: no vegetations seen UTI, recurrent 09/14 u/a wbc tnct, nit neg, leuk +3; ucx >100k MDR P. stuarti (S Ceftriaxone, Meropenem) 09/22 UA w/ ongoing pyuria, unchanged 10/07 u/a wbc tnct, nit neg, leuk ; ucx >100k VRE 10/14 u/a wbc tnct; ucx >100k ESBL P. stuarti (S ertapenem, aztreonam) Unstageable sacral ulceration JAVIER on CKD --> now on HD Renal US: Limited exam due to abdominal ascites and shadowing from bowel gas. CT recommended for more sensitive evaluation. Moderate right hydronephrosis. Increased renal parenchymal echogenicity suggesting intrinsic/ medical renal disease. Question indwelling left ureteral stent versus artifact. Bladder not visualized. 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 epi-11/2018, sp > 6weeks IV vancomycin 11/27 SP ABBIE: no evidence for vegetation on any of the valves 11/26/18 SP PPM removal: OR findings:The fibrous capsule enclosing the generator was then opened and there was a [id number] amount of yellowish fluid drainage. The generator was then removed.Atrial and ventricular leads were detached. The necrotic tissue of the pocket was then removed and the pocket was flushed with an antibiotic solution. Capsule, wound tissue and lead tip cx: Neg 2d echo: no vegetation seen US chest: 4.6 x 3.4 x 0.9 cm hypoechoic/anechoic area overlying left chest pacemaker power pack. This could represent either a discrete fluid collection or a focal area of very edematous tissue. Infected fluid pocket also possible. 11/18 Bcx 3/4 S. epi; 11/20 Bcx neg; 11/24 Bcx Neg; 11/27 Bcx Neg Hx of PNA 11/2019? sp cx PsA (arnett S), ABC (I Ceftriaxone; otherwise negative) Sp cx MRSA, ABC (I Ceftriaxone; otherwise S) PMH: Afib HTN Dysphagia sp GT Aortic dissection s/p repair 2017, S/p PPM Parkinson's Disease Schizophrenia Anxiety COPD Chronic resp failure s/p trach Hx of tracheal bleeding [place] resident ([facility]) Plan: Continue IV Gentamycin #4/5 for MDR PsA given leukocytosis 10/21 SP Meropenem #5 10/14 SP Daptomycin #5 10/03 SP Zerbaxa #6, gent #7 for MDR PsA pna 09/29 SP vanco #15 for S.epi in BCx 09/27 SP angelo #13 09/16 SP Cefepime #3, Levaquin #3 Monitor CBC/CMP, temperatures trach/ peg care Aspiration precautions D/w RN Thank you for this consultation. Will continue to follow along with you. Subjective Allergies: Coded Allergies: No Known Allergies (Unverified , 10/10/17) afebrile no leukocytosis Objective Last 24 Hour Vital Signs Date Time Temp Pulse Resp B/P (MAP) Pulse Ox O2 Delivery O2 Flow Rate FiO2 10/25/19 14:05 68 147/74 10/25/19 14:00 147/74 10/25/19 11:58 97.6 10/25/19 10:35 56 27 10/25/19 09:38 129/76 10/25/19 09:00 94 10/25/19 08:00 Mechanical Ventilator Mechanical Ventilator Mechanical Ventilator 10/25/19 08:00 40 10/25/19 08:00 97.6 61 16 127/63 (84) 95 10/25/19 08:00 68 10/25/19 06:50 59 23 10/25/19 05:11 149/75 10/25/19 05:10 54 149/75 10/25/19 04:00 97.9 63 20 149/75 (99) 95 10/25/19 04:00 54 10/25/19 04:00 Mechanical Ventilator Mechanical Ventilator Mechanical Ventilator 10/25/19 04:00 40 10/25/19 03:04 55 26 10/25/19 00:00 98.1 50 20 124/59 (80) 97 10/25/19 00:00 Mechanical Ventilator Mechanical Ventilator Mechanical Ventilator 10/25/19 00:00 40 10/25/19 00:00 47 10/24/19 23:12 50 20 10/24/19 21:25 136/63 10/24/19 21:10 55 136/63 10/24/19 20:00 Mechanical Ventilator Mechanical Ventilator Mechanical Ventilator 10/24/19 20:00 59 10/24/19 20:00 98.5 55 20 136/63 (87) 96 10/24/19 20:00 40 10/24/19 19:29 60 27 10/24/19 17:33 117/53 10/24/19 16:00 40 10/24/19 16:00 61 10/24/19 16:00 98.1 59 20 112/52 (72) 98 10/24/19 16:00 Mechanical Ventilator Mechanical Ventilator Mechanical Ventilator 10/24/19 14:36 63 24 10/24/19 14:30 64 117/54 (75) Height (Feet): 5 Height (Inches): 5.00 Weight (Pounds): 134 Gen: no distress Cardiovascular: RrR, S1 S2 normal Respiratory: decreased breath sounds Abdomen: soft, non-tender, present bowel sounds Extremities: no edema, no tenderness Laboratory Tests Test 10/24/19 16:25 10/24/19 23:42 10/25/19 03:05 10/25/19 05:04 POC Whole Blood Glucose 99 MG/DL (74-106) 92 MG/DL (74-106) 113 MG/DL (74-106) H White Blood Count 9.4 K/UL (4.8-10.8) Red Blood Count 3.82 M/UL (4.20-5.40) L Hemoglobin 11.3 G/DL (12.0-16.0) L Hematocrit 35.3 % (37.0-47.0) L Mean Corpuscular Volume 92 FL (80-99) Mean Corpuscular Hemoglobin 29.5 PG (27.0-31.0) Mean Corpuscular Hemoglobin Concent 31.9 G/DL (32.0-36.0) L Red Cell Distribution Width 14.3 % (11.6-14.8) Platelet Count 373 K/UL (150-450) Mean Platelet Volume 4.7 FL (6.5-10.1) L Neutrophils (%) (Auto) 67.4 % (45.0-75.0) Lymphocytes (%) (Auto) 19.6 % (20.0-45.0) L Monocytes (%) (Auto) 6.2 % (1.0-10.0) Eosinophils (%) (Auto) 5.8 % (0.0-3.0) H Basophils (%) (Auto) 1.0 % (0.0-2.0) Sodium Level 134 MMOL/L (136-145) L Potassium Level 4.2 MMOL/L (3.5-5.1) Chloride Level 99 MMOL/L (98-107) Carbon Dioxide Level 27 MMOL/L (21-32) Anion Gap 8 mmol/L (5-15) Blood Urea Nitrogen 97 mg/dL (7-18) H Creatinine 2.7 MG/DL (0.55-1.30) H Estimat Glomerular Filtration Rate 18.9 mL/min (>60) Glucose Level 99 MG/DL (74-106) Uric Acid 8.3 MG/DL (2.6-7.2) H Calcium Level 9.3 MG/DL (8.5-10.1) Phosphorus Level 5.5 MG/DL (2.5-4.9) H Magnesium Level 3.3 MG/DL (1.8-2.4) H Total Bilirubin 0.3 MG/DL (0.2-1.0) Aspartate Amino Transf (AST/SGOT) 23 U/L (15-37) Alanine Aminotransferase (ALT/SGPT) 12 U/L (12-78) Alkaline Phosphatase 166 U/L (46-116) H C-Reactive Protein, Quantitative 4.9 mg/dL (0.00-0.90) H Pro-B-Type Natriuretic Peptide 71038 pg/mL (0-125) H Total Protein 6.6 G/DL (6.4-8.2) Albumin 1.7 G/DL (3.4-5.0) L Globulin 4.9 g/dL Albumin/Globulin Ratio 0.3 (1.0-2.7) L Random Gentamicin Level 3.3 ug/mL Current Medications Medications (Trade) Dose Ordered Sig/Penny Route PRN Reason Start Time Stop Time Status Last Admin Dose Admin Acetaminophen (Tylenol) 500 mg Q4H PRN GT Mild Pain (Pain Scale 1-3) 10/23/19 14:45 11/16/19 18:44 10/25/19 11:28 Ascorbic Acid (Vitamin C) 500 mg DAILY ORAL 10/11/19 09:00 11/05/19 08:59 10/25/19 09:38 Chlorhexidine Gluconate (Ling-Hex 2%) 1 applic DAILY@1999 TOPIC 10/11/19 20:00 12/22/19 19:59 10/24/19 19:25 Clonidine HCl (Catapres TTS-3) 1 patch QWEEK TDERMAL 10/14/19 12:00 01/12/20 11:59 10/21/19 12:26 Dextrose (Dextrose 50%) 25 ml Q30M PRN IV Hypoglycemia 10/11/19 04:30 01/03/20 18:29 Dextrose (Dextrose 50%) 50 ml Q30M PRN IV Hypoglycemia 10/11/19 04:30 01/03/20 18:29 Diltiazem HCl (Cardizem Tab) 60 mg Q8HR GT 10/24/19 14:00 11/09/19 11:59 10/25/19 14:05 Docusate Sodium (Colace) 100 mg Q8HR GT 10/14/19 14:01 11/13/19 14:00 10/25/19 14:04 Epoetin Gelacio (Epoetin Gelacio(ESRD on dialysis)) 8,000 unit MON-MON-MON SUBQ 10/25/19 21:00 01/23/20 20:59 Gentamicin Protocol (Gentamicin pharmacy to dose) 1 ea DAILY PRN MISC Per rx protocol 10/22/19 13:45 11/21/19 13:44 Haloperidol (Haldol) 5 mg BIDPRN PRN GT Agitation 10/23/19 17:00 12/07/19 16:59 10/25/19 09:36 Heparin Sodium (Porcine) (Heparin 5000 units/ml) 5,000 units EVERY 12 HOURS SUBQ 10/11/19 09:00 10/30/19 08:59 10/25/19 09:35 Hydromorphone HCl (Dilaudid) 2 mg Q8HR GT 10/23/19 22:00 10/30/19 12:59 10/25/19 14:05 Insulin Aspart (NovoLOG) Q6HR SUBQ 10/11/19 06:00 01/03/20 20:59 Lansoprazole (Prevacid) 30 mg Q12HR GT 10/11/19 09:00 10/27/19 20:59 10/25/19 09:36 Lisinopril (PriniviL) 20 mg BID GT 10/11/19 09:00 11/08/19 17:59 10/25/19 09:38 Metoclopramide HCl (Reglan) 5 mg EVERY 6 HOURS GT 10/11/19 06:00 11/08/19 11:59 10/25/19 11:29 Metolazone (Zaroxolyn) 2.5 mg DAILY GT 10/25/19 09:00 11/22/19 08:59 10/25/19 09:36 Minoxidil (Loniten) 5 mg Q8HR ORAL 10/22/19 14:00 01/08/20 13:59 10/25/19 05:11 Polyethylene Glycol (Miralax) 17 gm BEDTIME ORAL 10/11/19 21:00 10/31/19 20:59 10/24/19 21:27 Risperidone (RisperDAL) 2 mg BEDTIME ORAL 10/11/19 21:00 11/19/19 20:59 10/24/19 21:25 Sorbitol (sorbitoL) 30 ml EVERY 6 HOURS PRN GT Constipation 10/11/19 06:00 10/29/19 17:59 Vitamin B Complex/ Vit C/Folic Acid (Nephrovite) 1 tab DAILY ORAL 10/11/19 09:00 11/05/19 08:59 10/25/19 09:36 Doreen Nino M.D. Oct 25, 2019 14:22
--- NOTE | 2019-10-25 14:49 | Surgery Progress Note ---
Surgery Progress Note Subjective Additional Comments improved no n/v/f/c pending d/c Objective Last 24 Hour Vital Signs Date Time Temp Pulse Resp B/P (MAP) Pulse Ox O2 Delivery O2 Flow Rate FiO2 10/25/19 14:05 68 147/74 10/25/19 14:00 147/74 10/25/19 11:58 97.6 10/25/19 10:35 56 27 10/25/19 09:38 129/76 10/25/19 09:00 94 10/25/19 08:00 Mechanical Ventilator Mechanical Ventilator Mechanical Ventilator 10/25/19 08:00 40 10/25/19 08:00 97.6 61 16 127/63 (84) 95 10/25/19 08:00 68 10/25/19 06:50 59 23 10/25/19 05:11 149/75 10/25/19 05:10 54 149/75 10/25/19 04:00 97.9 63 20 149/75 (99) 95 10/25/19 04:00 54 10/25/19 04:00 Mechanical Ventilator Mechanical Ventilator Mechanical Ventilator 10/25/19 04:00 40 10/25/19 03:04 55 26 10/25/19 00:00 98.1 50 20 124/59 (80) 97 10/25/19 00:00 Mechanical Ventilator Mechanical Ventilator Mechanical Ventilator 10/25/19 00:00 40 10/25/19 00:00 47 10/24/19 23:12 50 20 10/24/19 21:25 136/63 10/24/19 21:10 55 136/63 10/24/19 20:00 Mechanical Ventilator Mechanical Ventilator Mechanical Ventilator 10/24/19 20:00 59 10/24/19 20:00 98.5 55 20 136/63 (87) 96 10/24/19 20:00 40 10/24/19 19:29 60 27 10/24/19 17:33 117/53 10/24/19 16:00 40 10/24/19 16:00 61 10/24/19 16:00 98.1 59 20 112/52 (72) 98 10/24/19 16:00 Mechanical Ventilator Mechanical Ventilator Mechanical Ventilator I&O Intake and Output 10/24/19 10/25/19 19:00 07:00 Intake Total 780 ml 640 ml Output Total 350 ml 200 ml Balance 430 ml 440 ml Intake Free Water 300 ml 200 ml Tube Feeding 480 ml 440 ml Output Urine Total 350 ml 200 ml # Bowel Movements 1 Dressing: other Wound: other Cardiovascular: RSR Respiratory: decreased breath sounds Abdomen: soft, non-tender, present bowel sounds Extremities: no tenderness, no cyanosis Laboratory Tests Test 10/24/19 16:25 10/24/19 23:42 10/25/19 03:05 10/25/19 05:04 POC Whole Blood Glucose 99 MG/DL (74-106) 92 MG/DL (74-106) 113 MG/DL (74-106) H White Blood Count 9.4 K/UL (4.8-10.8) Red Blood Count 3.82 M/UL (4.20-5.40) L Hemoglobin 11.3 G/DL (12.0-16.0) L Hematocrit 35.3 % (37.0-47.0) L Mean Corpuscular Volume 92 FL (80-99) Mean Corpuscular Hemoglobin 29.5 PG (27.0-31.0) Mean Corpuscular Hemoglobin Concent 31.9 G/DL (32.0-36.0) L Red Cell Distribution Width 14.3 % (11.6-14.8) Platelet Count 373 K/UL (150-450) Mean Platelet Volume 4.7 FL (6.5-10.1) L Neutrophils (%) (Auto) 67.4 % (45.0-75.0) Lymphocytes (%) (Auto) 19.6 % (20.0-45.0) L Monocytes (%) (Auto) 6.2 % (1.0-10.0) Eosinophils (%) (Auto) 5.8 % (0.0-3.0) H Basophils (%) (Auto) 1.0 % (0.0-2.0) Sodium Level 134 MMOL/L (136-145) L Potassium Level 4.2 MMOL/L (3.5-5.1) Chloride Level 99 MMOL/L (98-107) Carbon Dioxide Level 27 MMOL/L (21-32) Anion Gap 8 mmol/L (5-15) Blood Urea Nitrogen 97 mg/dL (7-18) H Creatinine 2.7 MG/DL (0.55-1.30) H Estimat Glomerular Filtration Rate 18.9 mL/min (>60) Glucose Level 99 MG/DL (74-106) Uric Acid 8.3 MG/DL (2.6-7.2) H Calcium Level 9.3 MG/DL (8.5-10.1) Phosphorus Level 5.5 MG/DL (2.5-4.9) H Magnesium Level 3.3 MG/DL (1.8-2.4) H Total Bilirubin 0.3 MG/DL (0.2-1.0) Aspartate Amino Transf (AST/SGOT) 23 U/L (15-37) Alanine Aminotransferase (ALT/SGPT) 12 U/L (12-78) Alkaline Phosphatase 166 U/L (46-116) H C-Reactive Protein, Quantitative 4.9 mg/dL (0.00-0.90) H Pro-B-Type Natriuretic Peptide 56229 pg/mL (0-125) H Total Protein 6.6 G/DL (6.4-8.2) Albumin 1.7 G/DL (3.4-5.0) L Globulin 4.9 g/dL Albumin/Globulin Ratio 0.3 (1.0-2.7) L Random Gentamicin Level 3.3 ug/mL Plan Problems: (1) Anemia (2) Proteinuria (3) UTI (urinary tract infection) (4) ARF (acute renal failure) (5) ACS (acute coronary syndrome) (6) Respiratory failure, acute and chronic (7) HCAP (healthcare-associated pneumonia) (8) Abrasion of lip, initial encounter (9) COPD with exacerbation (10) Hypokalemia (11) Sepsis Assessment & Plan: Leukocytosis, anemia, abnormal labs. Renal insufficiency potentially dehydrated Abnormal LFTs alk phos elevated Urine noted significant bacteria likely UTI etiology Wound stable still requiring local care IV antibiotics per infectious disease Discussed with sail maker Dr. Berkowitz air mattress turn q2h nutritional tf will follow with recs thank you CT noted pending VQ scan - noted poor study low prob PE work respiratory increasing needs sedation weaning vent settings 80% peep 10 now comfortable Hd line in receiving HD plan for left thora 09/26 cont weaning vent as tolerated improving labs improved placement d/c planning (12) Chronic respiratory failure (13) Ascites (14) Bacteremia (15) Hypernatremia (16) Pleural effusion (17) Pacemaker (18) Aortic dissection, thoracic (19) Tracheostomy in place Assessment & Plan: trach stable no bleeding currently likely tongue etiology of mild oozing currently hemostatic without trauma (20) Feeding by G-tube Assessment & Plan: okay to resume tube feeds via g tube patent and functional dressings okay DAILY ESTIMATED NEEDS: Needs based on Pulmonary, wound 49kg 30-35 kcals/kg [id number] total kcals 1.25-2 g protein/kg 61-98 g total protein Fluid per MD NUTRITION DIAGNOSIS: * Swallowing difficulty R/T dysphagia, respiratory status as evidenced by vent dep via T-collar, GT Dep. (CURRENT TF: Nepro @45ml/hr x 24 hrs) ENTERAL NUTRITION RECOMMENDATIONS: Nepro @ 40ml/hr x 24 hrs to provide 960ml, 1728kcal, 78g prot, 698ml free water * Rec LOWER current rate to 40ml/hr for 24 hrs run. 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 Base of wound is granular with bone exposure at base of sacrococcygeal.(L)10.5cm x (W06.5cm x (D) 2.8cm , undermining 11-3 by 3.6cm @12 o'clock. small amt serosanguineous exudate noted . [place] epithelial along edges bordered by darker skin tone without erythema. Resolving Pressure injury L ischium. Base of wound is 95% pink epithelial ,5% noni at center base of wound. No exudate noted. Both heels are boggy with non-Blanching erythema. Tx.plan: Cleanse Sacral wound with Saline. Loosely pack with Hydrogel impregnated Kerlix. Apply Moisture Barrier Periwound. Cover with Optifoam drsg Daily and prn. Apply Moisture Barrier paste to L Ischium. Cover with Optifoam drsg. Changee very 3 days and prn. Apply Cavilon Skin Barrier to both heels. Cover each heel with Optifoam drsgs. Change every 7 days and prn. Reposition at least every 2hours or as tolerated. Off-load heels with pillow. APM/MAXWELL Mattress overlay. Sacral wound resolving. Wound is smaller in size with less depth and undermining (L)8.5cm x (W)5cm x (D)1.3cm, undermining clockwise 11-3 by 2.1cm @ 12o'clock. Base of wound is pink and moist, small area of bone exposure at base. Small amt. seropurulent exudate noted. No odor noted. Periwound without evidence of further skin breakdown noted. Wound Tx. are effective and continued as ordered. Al wound prevention protocols continued as care-planned. Tx.Plan:Cleanse sacral wound with Saline. Loosely pack with Hydrogel impregnated kerlix. Apply Moisture Barrier Paste periwound. Cover with Optifoam drsg Daily and prn. Apply Cavilon Skin Barrier to both heels and malleoli. Cover eachsite with Optifoam drsgs. Change every 7 days and prn. Reposition at least every 2hours or as tolerated. Off-load heels with pillow. APM/Maxwell Mattress overlay. Lane Saavedra Oct 25, 2019 14:49
[2019-10-25 16:00] VITALS: BP 133/58
[2019-10-25] MEDS ORDERED: Hydromorphone 0.5mg/0.5ml inj IVP SCH (17:15)
[2019-10-25 20:00] VITALS: BP 152/71
[2019-10-25] MEDS: Dyna-Hex 2% Top Sol 2oz TOPIC SCH (20:21)
[2019-10-25] MEDS: Miralax 17gm pkt ORAL SCH (20:22)
[2019-10-25] MEDS ORDERED: Epoetin Alfa-EPBX(ESRD on dialysis)4000 units/ml vial SUBQ SCH (21:00)
[2019-10-26] VITALS: BP 112/51
[2019-10-26 04:00] VITALS: BP_SYST 127; BP_SYST 135; BP_DIAS 58; BP_DIAS 68
[2019-10-26] MEDS: dilTIAZem HCl 60mg tab GT SCH (05:18)
[2019-10-26] MEDS: NovoLOG Insulin Flexpen SUBQ SCH ×5 (05:23→23:43)
[2019-10-26] MEDS: Metoclopramide 10mg/10ml Liq GT SCH ×4 (05:26→23:44)
[2019-10-26] MEDS: HYDROmorphone 2mg tab GT SCH ×3 (05:26→22:11)
[2019-10-26] MEDS: Docusate 100mg/10ml Liq GT SCH ×3 (05:26→22:12)
[2019-10-26] MEDS: Minoxidil 2.5mg tab ORAL SCH ×2 (05:27→20:14)
[2019-10-26 05:41] LABS: EOSINOPHILS % (AUTO) 5.9 % (0.0-3.0); HEMATOCRIT 35.1 % (37.0-47.0); HEMOGLOBIN 11.5 G/DL (12.0-16.0); LYMPHOCYTES % (AUTO) 22.4 % (20.0-45.0); MEAN CORPUSCULAR VOLUME 92 FL (80-99); MONOCYTES % (AUTO) 5.9 % (1.0-10.0); NEUTROPHILS % (AUTO) 64.7 % (45.0-75.0); PLATELET COUNT 392 K/UL (150-450); RED BLOOD COUNT 3.81 M/UL (4.20-5.40); RED CELL DISTRIBUTION WIDTH 14.3 % (11.6-14.8); WHITE BLOOD COUNT 8.3 K/UL (4.8-10.8)
[2019-10-26 06:13] LABS: ALBUMIN 1.7 G/DL (3.4-5.0); ALBUMIN/GLOBULIN RATIO 0.3 (1.0-2.7); BILIRUBIN,TOTAL 0.3 MG/DL (0.2-1.0); CALCIUM 8.9 MG/DL (8.5-10.1); CREATININE 2.9 MG/DL (0.55-1.30); PHOSPHORUS 6.1 MG/DL (2.5-4.9); POTASSIUM 4.1 MMOL/L (3.5-5.1)
[2019-10-26 08:00] VITALS: BP 116/59
[2019-10-26] MEDS: Ascorbic Acid 500mg tab ORAL SCH (09:25)
[2019-10-26] MEDS: Nephrovite tab (Rena-Vite) ORAL SCH (09:25)
[2019-10-26] MEDS: metOLazone 2.5 MG TAB GT SCH (09:25)
[2019-10-26] MEDS: Lisinopril 20mg tab GT SCH ×2 (09:26→17:20)
[2019-10-26] MEDS: Heparin 5000 units/ml inj SUBQ SCH ×2 (09:27→20:19)
--- NOTE | 2019-10-26 10:26 | Pulmonology Progress Note ---
Yara Castro MEDIA/INSTRUCTIONAL DESIGNER 10/26/19 1026: Subjective ROS Limited/Unobtainable: Yes Allergies: Coded Allergies: No Known Allergies (Unverified , 10/10/17) Subjective in PAULIE tolerates CPAP trials with PS 8 for 8 hrs no signs of resp distress denies CP, SOB remains afebrile, no leukocytosis dc plan in progress Objective Last 24 Hour Vital Signs Date Time Temp Pulse Resp B/P (MAP) Pulse Ox O2 Delivery O2 Flow Rate FiO2 10/26/19 09:29 59 10/26/19 09:26 116/59 10/26/19 09:00 100 10/26/19 08:00 40 10/26/19 08:00 98.1 63 23 116/59 (78) 100 10/26/19 07:10 58 21 10/26/19 06:00 60 10/26/19 05:56 97.6 10/26/19 05:27 133/57 10/26/19 05:18 57 133/57 10/26/19 04:00 Mechanical Ventilator Mechanical Ventilator Mechanical Ventilator 10/26/19 04:00 98.0 55 22 127/58 (81) 100 10/26/19 04:00 40 10/26/19 02:56 55 20 10/26/19 00:00 Mechanical Ventilator Mechanical Ventilator Mechanical Ventilator 10/26/19 00:00 97.4 52 16 112/51 (71) 98 10/26/19 00:00 56 10/26/19 00:00 40 10/25/19 22:53 69 19 10/25/19 21:34 125/50 10/25/19 21:33 70 125/50 10/25/19 20:00 Mechanical Ventilator Mechanical Ventilator Mechanical Ventilator 10/25/19 20:00 40 10/25/19 20:00 70 10/25/19 20:00 97.7 65 16 152/71 (98) 97 10/25/19 18:57 52 30 10/25/19 17:57 97.6 10/25/19 17:28 97.6 10/25/19 16:00 97.4 63 16 133/58 (83) 100 10/25/19 16:00 Mechanical Ventilator Mechanical Ventilator Mechanical Ventilator 10/25/19 16:00 40 10/25/19 16:00 56 10/25/19 15:00 54 29 10/25/19 14:05 68 147/74 10/25/19 14:00 147/74 10/25/19 12:00 98.3 85 16 147/74 (98) 96 10/25/19 12:00 40 10/25/19 12:00 Mechanical Ventilator Mechanical Ventilator Mechanical Ventilator 10/25/19 11:46 63 10/25/19 10:35 56 27 Intake and Output 10/25/19 10/26/19 19:00 07:00 Intake Total 580 ml 680 ml Output Total 900 ml Balance 580 ml -220 ml Intake Free Water 100 ml 200 ml Tube Feeding 480 ml 480 ml Output Urine Total 900 ml # Bowel Movements 1 Objective General Appearance: no apparent distress, bedridden middle age chronically ill looking female on vent AC 500-20- 40%, PEEP 5, awake, calm-currently on CPAP PS8 Lines, tubes and drains: left jugular HD catheter HEENT: normocephalic, atraumatic, anicteric, trach - Shiley #7 cuffed XLT, secretions small amount, yellow color , thick consistency Respiratory/Chest: no accessory muscle use, BS overall CTAB Cardiovascular/Chest: normal rate, regular rhythm - SR on tele Abdomen: normal bowel sounds, non tender, soft, G tube Genitourinary/Rectal: Norman Extremities: no edema Skin Exam: warm/dry, multiple tattoos all over the body Neurologic: awake, no gross focal Musculoskeletal: atrophy - BLE Laboratory Tests 10/25/19 23:18: POC Whole Blood Glucose [Pending] 10/26/19 03:20: White Blood Count 8.3, Red Blood Count 3.81L, Hemoglobin 11.5L, Hematocrit 35.1L , Mean Corpuscular Volume 92, Mean Corpuscular Hemoglobin 30.1, Mean Corpuscular Hemoglobin Concent 32.7, Red Cell Distribution Width 14.3, Platelet Count 392, Mean Platelet Volume 4.7L, Neutrophils (%) (Auto) 64.7, Lymphocytes ( %) (Auto) 22.4, Monocytes (%) (Auto) 5.9, Eosinophils (%) (Auto) 5.9H, Basophils (%) (Auto) 1.0, Sodium Level 135L, Potassium Level 4.1, Chloride Level 99, Carbon Dioxide Level 26, Anion Gap 10, Blood Urea Nitrogen 105H, Creatinine 2.9H, Estimat Glomerular Filtration Rate 17.4, Glucose Level 110H, Calcium Level 8.9, Phosphorus Level 6.1H, Magnesium Level 3.6H, Total Bilirubin 0.3, Aspartate Amino Transf (AST/SGOT) 22, Alanine Aminotransferase (ALT/SGPT) 16, Alkaline Phosphatase 180H, C-Reactive Protein, Quantitative 4.9H, Pro-B- Type Natriuretic Peptide 27786L, Total Protein 6.6, Albumin 1.7L, Globulin 4.9, Albumin/Globulin Ratio 0.3L 10/26/19 05:23: POC Whole Blood Glucose [Pending] Current Medications Medications (Trade) Dose Ordered Sig/Penny Route PRN Reason Start Time Stop Time Status Last Admin Dose Admin Acetaminophen (Tylenol) 500 mg Q4H PRN GT Mild Pain (Pain Scale 1-3) 10/23/19 14:45 11/16/19 18:44 10/25/19 16:58 Ascorbic Acid (Vitamin C) 500 mg DAILY ORAL 10/11/19 09:00 11/05/19 08:59 10/26/19 09:25 Chlorhexidine Gluconate (Ling-Hex 2%) 1 applic DAILY@1999 TOPIC 10/11/19 20:00 12/22/19 19:59 10/25/19 20:21 Clonidine HCl (Catapres TTS-3) 1 patch QWEEK TDERMAL 10/14/19 12:00 01/12/20 11:59 10/21/19 12:26 Dextrose (Dextrose 50%) 25 ml Q30M PRN IV Hypoglycemia 10/11/19 04:30 01/03/20 18:29 Dextrose (Dextrose 50%) 50 ml Q30M PRN IV Hypoglycemia 10/11/19 04:30 01/03/20 18:29 Diltiazem HCl (Cardizem Tab) 60 mg Q8HR GT 10/24/19 14:00 11/09/19 11:59 10/25/19 21:33 Docusate Sodium (Colace) 100 mg Q8HR GT 10/14/19 14:01 11/13/19 14:00 10/26/19 05:26 Epoetin Gelacio (Epoetin Gelacio(ESRD on dialysis)) 8,000 unit MON-MON-MON SUBQ 10/25/19 21:00 01/23/20 20:59 10/25/19 20:22 Gentamicin Protocol (Gentamicin pharmacy to dose) 1 ea DAILY PRN MISC Per rx protocol 10/22/19 13:45 11/21/19 13:44 Haloperidol (Haldol) 5 mg BIDPRN PRN GT Agitation 10/23/19 17:00 12/07/19 16:59 10/25/19 09:36 Heparin Sodium (Porcine) (Heparin 5000 units/ml) 5,000 units EVERY 12 HOURS SUBQ 10/11/19 09:00 10/30/19 08:59 10/26/19 09:27 Hydromorphone HCl (Dilaudid) 2 mg Q8HR GT 10/23/19 22:00 10/30/19 12:59 10/26/19 05:26 Insulin Aspart (NovoLOG) Q6HR SUBQ 10/11/19 06:00 01/03/20 20:59 Lansoprazole (Prevacid) 30 mg Q12HR GT 10/11/19 09:00 10/27/19 20:59 10/26/19 09:26 Lisinopril (PriniviL) 20 mg BID GT 10/11/19 09:00 11/08/19 17:59 10/26/19 09:26 Metoclopramide HCl (Reglan) 5 mg EVERY 6 HOURS GT 10/11/19 06:00 11/08/19 11:59 10/26/19 05:26 Metolazone (Zaroxolyn) 2.5 mg DAILY GT 10/25/19 09:00 11/22/19 08:59 10/26/19 09:25 Minoxidil (Loniten) 5 mg Q8HR ORAL 10/22/19 14:00 01/08/20 13:59 10/26/19 05:27 Polyethylene Glycol (Miralax) 17 gm BEDTIME ORAL 10/11/19 21:00 10/31/19 20:59 10/25/19 20:22 Risperidone (RisperDAL) 2 mg BEDTIME ORAL 10/11/19 21:00 11/19/19 20:59 10/25/19 20:22 Sorbitol (sorbitoL) 30 ml EVERY 6 HOURS PRN GT Constipation 10/11/19 06:00 10/29/19 17:59 Vitamin B Complex/ Vit C/Folic Acid (Nephrovite) 1 tab DAILY ORAL 10/11/19 09:00 11/05/19 08:59 10/26/19 09:25 Assessment/Plan Assessment/Plan ASSESSMENT Acute on chronic hypoxemic respiratory failure ( trach dependent), requiring placement on vent ( now CPAP trials) Tracheostomy status, s/p change to cuffed trach Sepsis Pulmonary edema Pleural effusion -worsening left pl effusion s/p thoracentesis L pleural effusion 09/26 -900 ml Pneumonia with MDR Pseudomonas UTI CHF ? cardiorenal COPD Acute kidney injury and chronic kidney disease-requiring start of HD Hypertension Atrial fibrillation Moderate pulm HTN Moderate AR Dysphagia , feeding by G-tube Electrolyte abnormalities Anemia Toxic metabolic encephalopathy likely due to sepsis and ARF HTN PAF Fevers. leukocytosis -resolved PLAN OF CARE PAULIE on vent AC trach changed 8/4 pm from uncuffed to cuffed Shiley#[address] chest w/out contrast: - Bilateral pleural effusions, right greater than left, with bilateral lower lobe consolidation or volume loss. -Ground-glass densities in the upper lobes bilaterally. This is not specific. -Tracheostomy. -Increased superior mediastinal density. Stability of adenopathy cannot be excluded. -Atherosclerotic change. -Gastrostomy. -Ascites. -Left renal stent with left hydronephrosis and renal atrophy. VQ scan -> low probability for PE worsening resp status was due to need for HD, now after HD started, resp status improving, down to PEEP 5 and AC 20 trach care , pulmonary toilet Mucomyst was prior dc given lots of thin secretions, continue Duoneb prn rapid COVID 19 NGT x3 off Fentanyl gtt since 10/09 FiO2 down to 40% last ABG stable 10/09 CXR 10/14 -increased right pleural fluid and parenchymal disease, doubt PNA likely fluid tolerating CPAP trials with PS 8 FiO2 40% 10/18-for 8 hrs continue CPAP trials as tolerated may continue in subacute upon discharge s/p thoracentesis L pleural effusion 09/26 am -> 900 ml fluid analysis noted, unlikely empyema given small # of WBC fup with fluid cx ( apparently never sent despite orders) cytology -> NGT, no malignant cells aspiration precautions venous Duplex BLE -> NGT DVT prophylaxis pulm toilet, BP regimen optimized as per nephro monitor volumes was on gentle IVF-> dc s/p prior diuretic-Lasix require initiation of HD continue further HD as per nephro with close monitoring of volumes, renal parameters and lytes -per nephro recs ABG pending for further assessment of acid base balance -ordered by nephro abx as per ID- recently pancx 10/14 due to fever and leukocytosis 10/14 BCX NGTD UCX 10/14 + Providencia, MDR, SCX+ Proteus ESBL, Pseudomonas MDR CXR 10/12 stable leuk 10/17, started on meropenem 10/17 -> as per ID recs, CXR 10/17 bilateral pleural effusions demonstrated. Mild interstitial and airspace congestion unchanged. CXR 10/23-> Slightly improved bilateral pleural effusions and retrocardiac consolidation, since 10/18/2019 no fevers abx changed to Gent 10/21-> for Pseudomonas MDR given prior fevers and mild leukocytosis, both resolved ECHO with pEF , moderate pulm HTN and moderate AR BP management with current regimen of BB, Cardizem and Hydralazine, remains in SR monitor HH with goal to keep Hgb >7, heme on board on EPO supportive care pain management wound care bowel regimen stable for dc from pulm standpoint dc plan in progress , challenging placement due to chronic resp failure ( need sebacate) and need for HD case discussed and evaluated by supervising physician Bang Guardado MD 10/26/19 1331: Subjective Allergies: Coded Allergies: No Known Allergies (Unverified , 10/10/17) Assessment/Plan Assessment/Plan Patient seen and examined with MEDIA/INSTRUCTIONAL DESIGNER. Agree with above A&P as it reflects our joint deliberations. Yara Castro NP Oct 26, 2019 10:26 Bang Guardado MD Oct 26, 2019 13:31
[2019-10-26] MEDS: Acetaminophen 650mg/20.3ml GT PRN (11:00)
--- NOTE | 2019-10-26 11:03 | Nephrology Progress Note ---
Assessment/Plan Problem List: (1) JAVIER (acute kidney injury) (2) Renal failure (ARF), acute on chronic (3) Dehydration (4) Electrolyte imbalance (5) Anemia (6) Respiratory failure, acute and chronic (7) COPD with exacerbation Assessment Patient is presented with sepsis and pneumonia and UTI Patient has acute renal failure, possible underlying chronic kidney failure Severe anemia Electrolyte imbalances: Hyponatremia, hypo-kalemia Chronic respiratory failure, COPD exacerbation Plan October 25: Labs reviewed. Serum creatinine 2.9. Calculated creatinine clearance 17 mL/min. Urine output well maintained on Zaroxolyn. Continue to monitor renal parameters. Check ABG today. Adjust blood pressure medication. Albumin bolus one-time infusion ordered. October 24: Labs reviewed. Serum creatinine slightly higher. Renal failure has an obvious prerenal picture. Up to the point that the urine output is maintained we can do for dialysis. Continue to monitor acid-base condition. October 23: Discharge canceled due to logistic reasons. Serum creatinine going up. Will adjust blood pressure medications. Down on Zaroxolyn dose. Check chemistry panel tomorrow. Continue to watch the heart rate closely. October 22: Patient last dialysis October 16. Serum creatinine is creeping up. Clinically the patient is stable. Urine output remains reasonable. Continue current management. Upon discharge patient needs to be followed maintenance fitter and arrange for as needed dialysis and ultrafiltration. Discussed with ERASMO Sen. October 21: Patient's last dialysis was October 16. Patient has been responding to Zaroxolyn, with decent urine output, and serum creatinine being stable. At this time will abort dialysis plan and continue per current management. Blood pressure medication adjusted. October 20: Patient appears to be responding to Zaroxolyn. Will repeat 10 mg Zaroxolyn via GT today. Continue monitor renal parameters. Potassium supplements given. Dialysis as needed. October 19: Patient responded to Zaroxolyn. Urine output increased. Will try 10 mg Zaroxolyn again today. Check renal parameters tomorrow. Dialysis as needed. October 18: Last dialysis October 16. Serum creatinine rising. Oliguria persists. Continue to monitor renal parameters and dialysis as needed. October 17: It appears that the patient received dialysis last night and the dialysis nurse changed her mind about delaying to today. Today's labs reviewed. Electrolyte abnormalities corrected. Continue per consultants. October 16: Late note entry due to system problem at the [facility] [place].Patient due for dialysis today. Dialysis nurse informed that due to few emergencies if she can be done tomorrow. No chemistry panel for today." We will order labs on dialysis tomorrow. October 15: Last dialysis October 13. Labs were reviewed. Urine output very low. Will dialyze and ultrafiltrate tomorrow. Per consultants. October 14: Dialyzed yesterday. Labs reviewed. Medication list reviewed. Continue per consultants. October 13: Patient seen on dialysis. Tolerating well. Will check labs tomorrow. October 12: Blood pressure stable. Labs reviewed. BUN rising. Remains oliguric. Dialysis tomorrow. October 11: Blood pressure is stable. Labs reviewed. Continue as is. Dialysis as needed October 10: Blood pressure medication adjusted. Will check lab tomorrow. Dialysis as needed. Urine output remains low. October 09: Lab reviewed. Remains oliguric. Will give trial of Zaroxolyn. Continue per consultants. Adjust blood pressure medication. Will add Zaroxolyn and increased dose of Cardizem and add clonidine patch for better BP control October 08: Labs reviewed. Patient oliguric. Blood pressure elevated, BP medication adjusted. Recheck lab tomorrow. Dialysis and ultrafiltration as needed. October 07: Labs reviewed. Patient was dialyzed yesterday. 3000 mL fluid was removed. Patient appears to need periodic (twice a week minimum) dialysis for ultrafiltration. Continue to monitor renal parameters. Continue per consultants. October 06: Labs reviewed. Discussed with pulmonary. Will attempt dialysis and ultrafiltration. Continue per consultants. October 05: Lab reviewed. Serum creatinine rising. Blood pressure stabilized. Will recheck lab tomorrow. Dialysis as needed. Will increase lisinopril to 10 mg twice a day. October 04: Lab reviewed. Blood pressure medication adjusted since the patient is hypotensive. Serum creatinine rising. Recheck labs tomorrow. Dialysis as needed. Discussed with RN. October 03: Lab reviewed. Zestril added to BP medication. 1 dose of Seroquel ordered for agitation. Continue to monitor renal parameters. Continue per consultants. October 02: Lab reviewed. Potassium supplement IV given. 3% saline 250 cc ordered. Responded well to Zaroxolyn yesterday. Will continue to monitor electrolytes and renal parameters. Will increase minoxidil to 2.5 mg every 6 hours. October 01: Labs reviewed. Potassium supplement given. Last dialysis September 29. Serum creatinine rising gradually. Urine output very low. Patient appears to continue to need dialysis at least twice a week. Blood pressure still running high I will switch the hydralazine to minoxidil. We will give 1 dose of Zaroxolyn 10 mg today. Will check renal parameters tomorrow. September 30: Patient dialyzed yesterday. 3 L removed. Labs reviewed. Potassium supplement given. Continue per consultants. It appears that the patient required dialysis 2-3 times a week. September 29: Lab reviewed. Chest x-ray result noted. Continues to have pulmonary congestion. Urine output low. Will attempt dialysis again today with ultrafiltration. September 28: Lab reviewed. ABG reviewed. Potassium supplement given. No dialysis at this point. Will eval patient status and renal parameters daily. September 27: Lab reviewed. Last dialysis September 25. Continue to monitor renal parameters. Hemodialysis as needed. September 26: Lab reviewed. Dialyzed yesterday. Potassium supplement given. Medication list reviewed. Will observe renal parameters and arrange for dialysis as needed. September 25: Lab reviewed. Currently on hemodialysis. Tolerating well. Stable from renal standpoint of view. Blood pressure medication adjusted by increasing hydralazine. September 24: Lab reviewed. ABG reviewed. Both lab and ABG much improved. Patient was dialyzed yesterday. We will attempt dialysis tomorrow again. Will adjust that blood pressure medication dosages. September 23: Lab reviewed. ABG reviewed. Patient acidotic. IV bicarb 1 dose is given. Patient has dialysis catheter. Will order dialysis for ultrafiltration and correction of acid-base. Discussed with ERASMO Mohr. September 22: Labs reviewed. Potassium high. Kayexalate and Reglan given. Will discuss with the consultants regarding initiation of dialysis. September 21: Patient is being sedated. Labs reviewed. Potassium supplement discontinued. GFR 20. Continue per current treatment plan. Dialysis and ultrafiltration is a consideration. September 20: Patient periodically agitated. Labs reviewed. Creatinine 2.4. Medication reviewed. Continue per consultants. Calculated creatinine clearance 21. May need isolated ultrafiltration on dialysis. Will discuss with PMD. Meanwhile hemoglobin is lower, defer transfusion to PMD. September 19: DC IV fluid. Zaroxolyn via GT tube. Potassium supplement. Attempt to diurese. Chest CT as bilateral pleural effusion. If diuresis unsuccessful, will consider dialysis and ultrafiltration. September 18: Potassium supplement IV given. Hemoglobin stable. Patient remains full code. Continue per consultants. Previously: Potassium supplement IV Slow IV hydration Epogen subcu Adjust blood pressure medication IV fluid, rate adjusted Norman catheter, intake and output Monitor renal parameters Avoid nephrotoxic's Antibiotics Per orders 2D echocardiogram Kidney ultrasound Subjective ROS Limited/Unobtainable: Yes Objective Objective Last 24 Hour Vital Signs Date Time Temp Pulse Resp B/P (MAP) Pulse Ox O2 Delivery O2 Flow Rate FiO2 10/26/19 09:29 59 10/26/19 09:26 116/59 10/26/19 09:00 100 10/26/19 08:00 40 10/26/19 08:00 98.1 63 23 116/59 (78) 100 10/26/19 07:10 58 21 10/26/19 06:00 60 10/26/19 05:56 97.6 10/26/19 05:27 133/57 10/26/19 05:18 57 133/57 10/26/19 04:00 Mechanical Ventilator Mechanical Ventilator Mechanical Ventilator 10/26/19 04:00 98.0 55 22 127/58 (81) 100 10/26/19 04:00 40 10/26/19 02:56 55 20 10/26/19 00:00 Mechanical Ventilator Mechanical Ventilator Mechanical Ventilator 10/26/19 00:00 97.4 52 16 112/51 (71) 98 10/26/19 00:00 56 10/26/19 00:00 40 10/25/19 22:53 69 19 10/25/19 21:34 125/50 10/25/19 21:33 70 125/50 10/25/19 20:00 Mechanical Ventilator Mechanical Ventilator Mechanical Ventilator 10/25/19 20:00 40 10/25/19 20:00 70 10/25/19 20:00 97.7 65 16 152/71 (98) 97 10/25/19 18:57 52 30 10/25/19 17:57 97.6 10/25/19 17:28 97.6 10/25/19 16:00 97.4 63 16 133/58 (83) 100 10/25/19 16:00 Mechanical Ventilator Mechanical Ventilator Mechanical Ventilator 10/25/19 16:00 40 10/25/19 16:00 56 10/25/19 15:00 54 29 9/11/20 14:05 68 147/74 10/25/19 14:00 147/74 10/25/19 12:00 98.3 85 16 147/74 (98) 96 10/25/19 12:00 40 10/25/19 12:00 Mechanical Ventilator Mechanical Ventilator Mechanical Ventilator 10/25/19 11:46 63 Intake and Output 10/25/19 10/26/19 19:00 07:00 Intake Total 580 ml 680 ml Output Total 900 ml Balance 580 ml -220 ml Intake Free Water 100 ml 200 ml Tube Feeding 480 ml 480 ml Output Urine Total 900 ml # Bowel Movements 1 Laboratory Tests 10/25/19 23:18: POC Whole Blood Glucose [Pending] 10/26/19 03:20: White Blood Count 8.3, Red Blood Count 3.81L, Hemoglobin 11.5L, Hematocrit 35.1L , Mean Corpuscular Volume 92, Mean Corpuscular Hemoglobin 30.1, Mean Corpuscular Hemoglobin Concent 32.7, Red Cell Distribution Width 14.3, Platelet Count 392, Mean Platelet Volume 4.7L, Neutrophils (%) (Auto) 64.7, Lymphocytes ( %) (Auto) 22.4, Monocytes (%) (Auto) 5.9, Eosinophils (%) (Auto) 5.9H, Basophils (%) (Auto) 1.0, Sodium Level 135L, Potassium Level 4.1, Chloride Level 99, Carbon Dioxide Level 26, Anion Gap 10, Blood Urea Nitrogen 105H, Creatinine 2.9H, Estimat Glomerular Filtration Rate 17.4, Glucose Level 110H, Calcium Level 8.9, Phosphorus Level 6.1H, Magnesium Level 3.6H, Total Bilirubin 0.3, Aspartate Amino Transf (AST/SGOT) 22, Alanine Aminotransferase (ALT/SGPT) 16, Alkaline Phosphatase 180H, C-Reactive Protein, Quantitative 4.9H, Pro-B- Type Natriuretic Peptide 47836F, Total Protein 6.6, Albumin 1.7L, Globulin 4.9, Albumin/Globulin Ratio 0.3L 10/26/19 05:23: POC Whole Blood Glucose [Pending] Height (Feet): 5 Height (Inches): 5.00 Weight (Pounds): 134 Objective No change Johnny Houston MD Oct 26, 2019 11:03
[2019-10-26 12:00] VITALS: BP 134/52
--- NOTE | 2019-10-26 12:22 | Surgery Progress Note ---
Surgery Progress Note Subjective Symptoms: improved, tolerating diet, passing flatus Objective Last 24 Hour Vital Signs Date Time Temp Pulse Resp B/P (MAP) Pulse Ox O2 Delivery O2 Flow Rate FiO2 10/26/19 09:29 59 10/26/19 09:26 116/59 10/26/19 09:00 100 10/26/19 08:00 40 10/26/19 08:00 98.1 63 23 116/59 (78) 100 10/26/19 08:00 Mechanical Ventilator Mechanical Ventilator Mechanical Ventilator 10/26/19 07:10 58 21 10/26/19 06:00 60 10/26/19 05:56 97.6 10/26/19 05:27 133/57 10/26/19 05:18 57 133/57 10/26/19 04:00 Mechanical Ventilator Mechanical Ventilator Mechanical Ventilator 10/26/19 04:00 98.0 55 22 127/58 (81) 100 10/26/19 04:00 40 10/26/19 02:56 55 20 10/26/19 00:00 Mechanical Ventilator Mechanical Ventilator Mechanical Ventilator 10/26/19 00:00 97.4 52 16 112/51 (71) 98 10/26/19 00:00 56 10/26/19 00:00 40 10/25/19 22:53 69 19 10/25/19 21:34 125/50 10/25/19 21:33 70 125/50 10/25/19 20:00 Mechanical Ventilator Mechanical Ventilator Mechanical Ventilator 10/25/19 20:00 40 10/25/19 20:00 70 10/25/19 20:00 97.7 65 16 152/71 (98) 97 10/25/19 18:57 52 30 10/25/19 17:57 97.6 10/25/19 17:28 97.6 10/25/19 16:00 97.4 63 16 133/58 (83) 100 10/25/19 16:00 Mechanical Ventilator Mechanical Ventilator Mechanical Ventilator 10/25/19 16:00 40 10/25/19 16:00 56 10/25/19 15:00 54 29 10/25/19 14:05 68 147/74 10/25/19 14:00 147/74 I&O Intake and Output 10/25/19 10/26/19 19:00 07:00 Intake Total 580 ml 680 ml Output Total 900 ml Balance 580 ml -220 ml Intake Free Water 100 ml 200 ml Tube Feeding 480 ml 480 ml Output Urine Total 900 ml # Bowel Movements 1 Cardiovascular: RSR Respiratory: clear, decreased breath sounds Abdomen: soft, non-tender, present bowel sounds Extremities: no edema, no tenderness, no cyanosis Laboratory Tests Test 10/25/19 23:18 10/26/19 03:20 10/26/19 05:23 10/26/19 11:26 POC Whole Blood Glucose Pending Pending White Blood Count 8.3 K/UL (4.8-10.8) Red Blood Count 3.81 M/UL (4.20-5.40) L Hemoglobin 11.5 G/DL (12.0-16.0) L Hematocrit 35.1 % (37.0-47.0) L Mean Corpuscular Volume 92 FL (80-99) Mean Corpuscular Hemoglobin 30.1 PG (27.0-31.0) Mean Corpuscular Hemoglobin Concent 32.7 G/DL (32.0-36.0) Red Cell Distribution Width 14.3 % (11.6-14.8) Platelet Count 392 K/UL (150-450) Mean Platelet Volume 4.7 FL (6.5-10.1) L Neutrophils (%) (Auto) 64.7 % (45.0-75.0) Lymphocytes (%) (Auto) 22.4 % (20.0-45.0) Monocytes (%) (Auto) 5.9 % (1.0-10.0) Eosinophils (%) (Auto) 5.9 % (0.0-3.0) H Basophils (%) (Auto) 1.0 % (0.0-2.0) Sodium Level 135 MMOL/L (136-145) L Potassium Level 4.1 MMOL/L (3.5-5.1) Chloride Level 99 MMOL/L (98-107) Carbon Dioxide Level 26 MMOL/L (21-32) Anion Gap 10 mmol/L (5-15) Blood Urea Nitrogen 105 mg/dL (7-18) H Creatinine 2.9 MG/DL (0.55-1.30) H Estimat Glomerular Filtration Rate 17.4 mL/min (>60) Glucose Level 110 MG/DL (74-106) H Calcium Level 8.9 MG/DL (8.5-10.1) Phosphorus Level 6.1 MG/DL (2.5-4.9) H Magnesium Level 3.6 MG/DL (1.8-2.4) H Total Bilirubin 0.3 MG/DL (0.2-1.0) Aspartate Amino Transf (AST/SGOT) 22 U/L (15-37) Alanine Aminotransferase (ALT/SGPT) 16 U/L (12-78) Alkaline Phosphatase 180 U/L (46-116) H C-Reactive Protein, Quantitative 4.9 mg/dL (0.00-0.90) H Pro-B-Type Natriuretic Peptide 97465 pg/mL (0-125) H Total Protein 6.6 G/DL (6.4-8.2) Albumin 1.7 G/DL (3.4-5.0) L Globulin 4.9 g/dL Albumin/Globulin Ratio 0.3 (1.0-2.7) L Arterial Blood pH 7.461 (7.350-7.450) Arterial Blood Partial Pressure CO2 35.9 mmHg (35.0-45.0) Arterial Blood Partial Pressure O2 59.7 mmHg (75.0-100.0) L Arterial Blood HCO3 25.0 mmol/L (22.0-26.0) Arterial Blood Oxygen Saturation 90.6 % (95-100) L Arterial Blood Base Excess 1.4 (-2-2) Rojas Test Positive Plan Problems: (1) Anemia (2) Proteinuria (3) UTI (urinary tract infection) (4) ARF (acute renal failure) (5) ACS (acute coronary syndrome) (6) Respiratory failure, acute and chronic (7) HCAP (healthcare-associated pneumonia) (8) Abrasion of lip, initial encounter (9) COPD with exacerbation (10) Hypokalemia (11) Sepsis Assessment & Plan: Leukocytosis, anemia, abnormal labs. Renal insufficiency potentially dehydrated Abnormal LFTs alk phos elevated Urine noted significant bacteria likely UTI etiology Wound stable still requiring local care IV antibiotics per infectious disease Discussed with virology teacher Dr. Berkowitz air mattress turn q2h nutritional tf will follow with recs thank you CT noted pending VQ scan - noted poor study low prob PE work respiratory increasing needs sedation weaning vent settings 80% peep 10 now comfortable Hd line in receiving HD plan for left thora 09/26 cont weaning vent as tolerated improving labs improved placement d/c planning (12) Chronic respiratory failure (13) Ascites (14) Bacteremia (15) Hypernatremia (16) Pleural effusion (17) Pacemaker (18) Aortic dissection, thoracic (19) Tracheostomy in place Assessment & Plan: trach stable no bleeding currently likely tongue etiology of mild oozing currently hemostatic without trauma (20) Feeding by G-tube Assessment & Plan: okay to resume tube feeds via g tube patent and functional dressings okay DAILY ESTIMATED NEEDS: Needs based on Pulmonary, wound 49kg 30-35 kcals/kg [id number] total kcals 1.25-2 g protein/kg 61-98 g total protein Fluid per MD NUTRITION DIAGNOSIS: * Swallowing difficulty R/T dysphagia, respiratory status as evidenced by vent dep via T-collar, GT Dep. (CURRENT TF: Nepro @45ml/hr x 24 hrs) ENTERAL NUTRITION RECOMMENDATIONS: Nepro @ 40ml/hr x 24 hrs to provide 960ml, 1728kcal, 78g prot, 698ml free water * Rec LOWER current rate to 40ml/hr for 24 hrs run. 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 Base of wound is granular with bone exposure at base of sacrococcygeal.(L)10.5cm x (W06.5cm x (D) 2.8cm , undermining 11-3 by 3.6cm @12 o'clock. small amt serosanguineous exudate noted . Leadore epithelial along edges bordered by darker skin tone without erythema. Resolving Pressure injury L ischium. Base of wound is 95% pink epithelial ,5% noni at center base of wound. No exudate noted. Both heels are boggy with non-Blanching erythema. Tx.plan: Cleanse Sacral wound with Saline. Loosely pack with Hydrogel impregnated Kerlix. Apply Moisture Barrier Periwound. Cover with Optifoam drsg Daily and prn. Apply Moisture Barrier paste to L Ischium. Cover with Optifoam drsg. Changee very 3 days and prn. Apply Cavilon Skin Barrier to both heels. Cover each heel with Optifoam drsgs. Change every 7 days and prn. Reposition at least every 2hours or as tolerated. Off-load heels with pillow. APM/MAXWELL Mattress overlay. Sacral wound resolving. Wound is smaller in size with less depth and undermining (L)8.5cm x (W)5cm x (D)1.3cm, undermining clockwise 11-3 by 2.1cm @ 12o'clock. Base of wound is pink and moist, small area of bone exposure at base. Small amt. seropurulent exudate noted. No odor noted. Periwound without evidence of further skin breakdown noted. Wound Tx. are effective and continued as ordered. Al wound prevention protocols continued as care-planned. Tx.Plan:Cleanse sacral wound with Saline. Loosely pack with Hydrogel impregnated kerlix. Apply Moisture Barrier Paste periwound. Cover with Optifoam drsg Daily and prn. Apply Cavilon Skin Barrier to both heels and malleoli. Cover eachsite with Optifoam drsgs. Change every 7 days and prn. Reposition at least every 2hours or as tolerated. Off-load heels with pillow. APM/Maxwell Mattress overlay. Lane Saavedra Oct 26, 2019 12:22
[2019-10-26] MEDS: dilTIAZem HCl 30mg tab GT SCH ×2 (13:41→22:00)
[2019-10-26 16:00] VITALS: BP 127/55
--- NOTE | 2019-10-26 16:51 | Infectious Diseases Prog Note ---
Assessment/Plan 49yo F with: Fever, recurrent; SP Leukocytosis, recurrent- SP -10/14 Bcx NTD Acute hypoxic resp failure: Now on vent, worsening, FiO2 100% > 80% 09/27 > 60% >40% 10/08 >30% 10/09 >40% 10/14 Pneumonia, COVID19 neg x3 - MDR PsA pneumonia,s pr x 10/23 CXR: Slightly improved bilateral pleural effusions and retrocardiac consolidation, since 10/18/201910/14 CXR: Increased right pleural fluid and parenchymal disease, since previous exam of 10/09/2019. Stable pleural and parenchymal disease on the left sp cx ESBL P. mirabilis, MDR P.a. ( S only to Gent) 10/07 CXR: Bilateral infiltrates versus edema, left greater than right pleural effusions are again demonstrated, unchanged. There is slightly better inspiration currently. 09/29 CXR: Bilateral edema versus infiltrates appears slightly worse than on the prior study. There is probably some pleural fluid on the left. 09/26 S/P thoracentesis, 900cc removed, only 67 WBC in fluid analysis, unlikely empyema 09/26 CXR: Worsening R perihilar opacity 09/26 BCx Neg 09/24 CXR: Previously demonstrated right lateral basilar lucency is no longer evident, was presumably a skin fold artifact. Bilateral infiltrates and left pleural effusion are probably unchanged allowing for slight differences in technique. 09/22 Resp cx + MDR PsA (S-gent; I-colistin; R-levofloxacin, Zosyn, angelo) 09/22 BCx NTD 09/22 CXR: worsening BL pna 09/22 UA w/ persistent pyuria, now on HD, UCx +VRE, most likely colonizer as improving wo tx for this 09/19 V/Q scan, low probability of PE 09/18 Rapid COVID PCR neg 09/18 CT chest: Markedly suboptimal examination due to lack of IV contrast material. Bilateral pleural effusions, right greater than left, with bilateral lower lobe consolidation or volume loss. Ground glass densities in the upper lobes bilaterally. This is not specific. Tracheostomy. Increased superior mediastinal density. Stability of adenopathy cannot be excluded. Atherosclerotic change. Gastrostomy. Ascites. Left renal stent with left hydronephrosis and renal atrophy. 09/17 Chest US: Trace right and small left pleural effusions. No safe window identified for bedside thoracentesis. Note that the majority of the left pleural effusion is subpulmonic. 09/16 CXR: Worsening of right lung infiltrates and right effusion. V. duplex: NO DVT D-dimer elevated 09/15 Rapid COVID PCR neg 09/15 Sp cx ESBL P. mirablis 09/14 CXR: Bilateral airspace opacities, preferentially involving the right lung, consistent with multifocal infiltrate. Trace bilateral pleural effusions. No pneumothorax. Rapid COVID PCR neg Urine legionella neg 09/16 GPC bacteremia, real vs contaminant; does have hx of infected PPM- 09/14 Bcx 03/19 S. epidermis; 09/15, , Bcx Neg 2d echo: no vegetations seen UTI, recurrent 09/14 u/a wbc tnct, nit neg, leuk +3; ucx >100k MDR P. stuarti (S Ceftriaxone, Meropenem) 09/22 UA w/ ongoing pyuria, unchanged 10/07 u/a wbc tnct, nit neg, leuk ; ucx >100k VRE 10/14 u/a wbc tnct; ucx >100k ESBL P. stuarti (S ertapenem, aztreonam) Unstageable sacral ulceration JAVIER on CKD --> now on HD Renal US: Limited exam due to abdominal ascites and shadowing from bowel gas. CT recommended for more sensitive evaluation. Moderate right hydronephrosis. Increased renal parenchymal echogenicity suggesting intrinsic/ medical renal disease. Question indwelling left ureteral stent versus artifact. Bladder not visualized. 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 epi-11/2018, sp > 6weeks IV vancomycin 11/27 SP ABBIE: no evidence for vegetation on any of the valves 11/26/18 SP PPM removal: OR findings:The fibrous capsule enclosing the generator was then opened and there was a envic-hy-lqfjvawb amount of yellowish fluid drainage. The generator was then removed.Atrial and ventricular leads were detached. The necrotic tissue of the pocket was then removed and the pocket was flushed with an antibiotic solution. Capsule, wound tissue and lead tip cx: Neg 2d echo: no vegetation seen US chest: 4.6 x 3.4 x 0.9 cm hypoechoic/anechoic area overlying left chest pacemaker power pack. This could represent either a discrete fluid collection or a focal area of very edematous tissue. Infected fluid pocket also possible. 11/18 Bcx 3/4 S. epi; 11/20 Bcx neg; 11/24 Bcx Neg; 11/27 Bcx Neg Hx of PNA 11/2019? sp cx PsA (arnett S), ABC (I Ceftriaxone; otherwise negative) Sp cx MRSA, ABC (I Ceftriaxone; otherwise S) PMH: Afib HTN Dysphagia sp GT Aortic dissection s/p repair 2017, S/p PPM Parkinson's Disease Schizophrenia Anxiety COPD Chronic resp failure s/p trach Hx of tracheal bleeding [place] resident ([facility]) Plan: Continue IV Gentamycin #5/5 for MDR PsA given leukocytosis 10/21 SP Meropenem #5 10/14 SP Daptomycin #5 10/03 SP Zerbaxa #6, gent #7 for MDR PsA pna 09/29 SP vanco #15 for S.epi in BCx 09/27 SP angelo #13 09/16 SP Cefepime #3, Levaquin #3 Monitor CBC/CMP, temperatures trach/ peg care Aspiration precautions D/w RN Thank you for this consultation. Will continue to follow along with you. Subjective Allergies: Coded Allergies: No Known Allergies (Unverified , 10/10/17) afebrile no leukocytosis Objective Last 24 Hour Vital Signs Date Time Temp Pulse Resp B/P (MAP) Pulse Ox O2 Delivery O2 Flow Rate FiO2 10/26/19 16:41 65 10/26/19 16:00 Mechanical Ventilator Mechanical Ventilator Mechanical Ventilator 10/26/19 16:00 97.9 63 30 127/55 (79) 100 10/26/19 16:00 40 10/26/19 15:00 59 29 40 10/26/19 13:41 61 116/59 10/26/19 12:00 61 10/26/19 12:00 98.2 61 24 134/52 (79) 100 10/26/19 12:00 Mechanical Ventilator Mechanical Ventilator Mechanical Ventilator 10/26/19 12:00 40 10/26/19 11:00 61 28 40 10/26/19 09:29 59 10/26/19 09:26 116/59 10/26/19 09:00 100 10/26/19 08:00 40 10/26/19 08:00 98.1 63 23 116/59 (78) 100 10/26/19 08:00 Mechanical Ventilator Mechanical Ventilator Mechanical Ventilator 10/26/19 07:10 58 21 40 10/26/19 06:00 60 10/26/19 05:56 97.6 10/26/19 05:27 133/57 10/26/19 05:18 57 133/57 10/26/19 04:00 Mechanical Ventilator Mechanical Ventilator Mechanical Ventilator 10/26/19 04:00 98.0 55 22 127/58 (81) 100 10/26/19 04:00 40 10/26/19 02:56 55 20 10/26/19 00:00 Mechanical Ventilator Mechanical Ventilator Mechanical Ventilator 10/26/19 00:00 97.4 52 16 112/51 (71) 98 10/26/19 00:00 56 10/26/19 00:00 40 10/25/19 22:53 69 19 10/25/19 21:34 125/50 10/25/19 21:33 70 125/50 10/25/19 20:00 Mechanical Ventilator Mechanical Ventilator Mechanical Ventilator 10/25/19 20:00 40 10/25/19 20:00 70 10/25/19 20:00 97.7 65 16 152/71 (98) 97 10/25/19 18:57 52 30 10/25/19 17:57 97.6 10/25/19 17:28 97.6 Height (Feet): 5 Height (Inches): 5.00 Weight (Pounds): 134 Gen: no distress Cardiovascular: RrR, S1 S2 normal Respiratory: decreased breath sounds Abdomen: soft, non-tender, present bowel sounds Extremities: no edema, no tenderness Laboratory Tests Test 10/25/19 23:18 10/26/19 03:20 10/26/19 05:23 10/26/19 11:26 POC Whole Blood Glucose Pending Pending White Blood Count 8.3 K/UL (4.8-10.8) Red Blood Count 3.81 M/UL (4.20-5.40) L Hemoglobin 11.5 G/DL (12.0-16.0) L Hematocrit 35.1 % (37.0-47.0) L Mean Corpuscular Volume 92 FL (80-99) Mean Corpuscular Hemoglobin 30.1 PG (27.0-31.0) Mean Corpuscular Hemoglobin Concent 32.7 G/DL (32.0-36.0) Red Cell Distribution Width 14.3 % (11.6-14.8) Platelet Count 392 K/UL (150-450) Mean Platelet Volume 4.7 FL (6.5-10.1) L Neutrophils (%) (Auto) 64.7 % (45.0-75.0) Lymphocytes (%) (Auto) 22.4 % (20.0-45.0) Monocytes (%) (Auto) 5.9 % (1.0-10.0) Eosinophils (%) (Auto) 5.9 % (0.0-3.0) H Basophils (%) (Auto) 1.0 % (0.0-2.0) Sodium Level 135 MMOL/L (136-145) L Potassium Level 4.1 MMOL/L (3.5-5.1) Chloride Level 99 MMOL/L (98-107) Carbon Dioxide Level 26 MMOL/L (21-32) Anion Gap 10 mmol/L (5-15) Blood Urea Nitrogen 105 mg/dL (7-18) H Creatinine 2.9 MG/DL (0.55-1.30) H Estimat Glomerular Filtration Rate 17.4 mL/min (>60) Glucose Level 110 MG/DL (74-106) H Calcium Level 8.9 MG/DL (8.5-10.1) Phosphorus Level 6.1 MG/DL (2.5-4.9) H Magnesium Level 3.6 MG/DL (1.8-2.4) H Total Bilirubin 0.3 MG/DL (0.2-1.0) Aspartate Amino Transf (AST/SGOT) 22 U/L (15-37) Alanine Aminotransferase (ALT/SGPT) 16 U/L (12-78) Alkaline Phosphatase 180 U/L (46-116) H C-Reactive Protein, Quantitative 4.9 mg/dL (0.00-0.90) H Pro-B-Type Natriuretic Peptide 59277 pg/mL (0-125) H Total Protein 6.6 G/DL (6.4-8.2) Albumin 1.7 G/DL (3.4-5.0) L Globulin 4.9 g/dL Albumin/Globulin Ratio 0.3 (1.0-2.7) L Arterial Blood pH 7.461 (7.350-7.450) Arterial Blood Partial Pressure CO2 35.9 mmHg (35.0-45.0) Arterial Blood Partial Pressure O2 59.7 mmHg (75.0-100.0) L Arterial Blood HCO3 25.0 mmol/L (22.0-26.0) Arterial Blood Oxygen Saturation 90.6 % (95-100) L Arterial Blood Base Excess 1.4 (-2-2) Rojas Test Positive Test 10/26/19 12:46 POC Whole Blood Glucose Pending Current Medications Medications (Trade) Dose Ordered Sig/Penny Route PRN Reason Start Time Stop Time Status Last Admin Dose Admin Acetaminophen (Tylenol) 500 mg Q4H PRN GT Mild Pain (Pain Scale 1-3) 10/23/19 14:45 11/16/19 18:44 10/26/19 11:00 Ascorbic Acid (Vitamin C) 500 mg DAILY ORAL 10/11/19 09:00 11/05/19 08:59 10/26/19 09:25 Chlorhexidine Gluconate (Ling-Hex 2%) 1 applic DAILY@1999 TOPIC 10/11/19 20:00 12/22/19 19:59 10/25/19 20:21 Clonidine HCl (Catapres TTS-3) 1 patch QWEEK TDERMAL 10/14/19 12:00 01/12/20 11:59 10/21/19 12:26 Dextrose (Dextrose 50%) 25 ml Q30M PRN IV Hypoglycemia 10/11/19 04:30 01/03/20 18:29 Dextrose (Dextrose 50%) 50 ml Q30M PRN IV Hypoglycemia 10/11/19 04:30 01/03/20 18:29 Diltiazem HCl (Cardizem Tab) 30 mg Q8HR GT 10/26/19 14:00 11/09/19 11:59 10/26/19 13:41 Docusate Sodium (Colace) 100 mg Q8HR GT 10/14/19 14:01 11/13/19 14:00 10/26/19 05:26 Epoetin Gelacio (Epoetin Gelacio(ESRD on dialysis)) 8,000 unit MON-MON-MON SUBQ 10/25/19 21:00 01/23/20 20:59 10/25/19 20:22 Gentamicin Protocol (Gentamicin pharmacy to dose) 1 ea DAILY PRN MISC Per rx protocol 10/22/19 13:45 11/21/19 13:44 Haloperidol (Haldol) 5 mg BIDPRN PRN GT Agitation 10/23/19 17:00 12/07/19 16:59 10/25/19 09:36 Heparin Sodium (Porcine) (Heparin 5000 units/ml) 5,000 units EVERY 12 HOURS SUBQ 10/11/19 09:00 10/30/19 08:59 10/26/19 09:27 Hydromorphone HCl (Dilaudid) 2 mg Q8HR GT 10/23/19 22:00 10/30/19 12:59 10/26/19 13:42 Insulin Aspart (NovoLOG) Q6HR SUBQ 10/11/19 06:00 01/03/20 20:59 Lansoprazole (Prevacid) 30 mg Q12HR GT 10/11/19 09:00 10/27/19 20:59 10/26/19 09:26 Lisinopril (PriniviL) 20 mg BID GT 10/11/19 09:00 11/08/19 17:59 10/26/19 09:26 Metoclopramide HCl (Reglan) 5 mg EVERY 6 HOURS GT 10/11/19 06:00 11/08/19 11:59 10/26/19 12:53 Metolazone (Zaroxolyn) 2.5 mg DAILY GT 10/25/19 09:00 11/22/19 08:59 10/26/19 09:25 Minoxidil (Loniten) 2.5 mg Q12HR ORAL 10/26/19 21:00 01/08/20 13:59 Polyethylene Glycol (Miralax) 17 gm BEDTIME ORAL 10/11/19 21:00 10/31/19 20:59 10/25/19 20:22 Risperidone (RisperDAL) 2 mg BEDTIME ORAL 10/11/19 21:00 11/19/19 20:59 10/25/19 20:22 Sorbitol (sorbitoL) 30 ml EVERY 6 HOURS PRN GT Constipation 10/11/19 06:00 10/29/19 17:59 Vitamin B Complex/ Vit C/Folic Acid (Nephrovite) 1 tab DAILY ORAL 10/11/19 09:00 11/05/19 08:59 10/26/19 09:25 Doreen Nino M.D. Oct 26, 2019 16:51
[2019-10-26 20:00] VITALS: BP 149/58
[2019-10-26] MEDS: Miralax 17gm pkt ORAL SCH (20:14)
[2019-10-26] MEDS: Dyna-Hex 2% Top Sol 2oz TOPIC SCH (20:14)
--- NOTE | 2019-10-26 20:36 | General Progress Note ---
Assessment/Plan Status: stable, other - Mood has improved he is able to smile there is no continuous tearing overall she looks better today energy looking the last several days continue with the same management Status Narrative Patient is awake alert febrile and hemodynamically stable She is ventilator dependent she is off dialysis program with acceptable urine output and glomerular filtration filtration rate She is on the waiting list to enter a subacute unit that will accept her Repeat laboratory tests will be done in a.m. LUCAS DONG MD Subjective Constitutional: Reports: no symptoms HEENT: Reports: no symptoms Cardiovascular: Reports: other - enies any chest pain shortness of breath palpitations dizziness Respiratory: Reports: other - She denies any cough wheezing or expectoration Gastrointestinal/Abdominal: Reports: no symptoms, other Genitourinary: Reports: no symptoms Allergies: Coded Allergies: No Known Allergies (Unverified , 10/10/17) Objective Last 24 Hour Vital Signs Date Time Temp Pulse Resp B/P (MAP) Pulse Ox O2 Delivery O2 Flow Rate FiO2 10/26/19 20:14 149/58 10/26/19 18:34 62 31 40 10/26/19 17:20 127/55 10/26/19 16:41 65 10/26/19 16:00 Mechanical Ventilator Mechanical Ventilator Mechanical Ventilator 10/26/19 16:00 97.9 63 30 127/55 (79) 100 10/26/19 16:00 40 10/26/19 15:00 59 29 40 10/26/19 13:41 61 116/59 10/26/19 12:00 61 10/26/19 12:00 98.2 61 24 134/52 (79) 100 10/26/19 12:00 Mechanical Ventilator Mechanical Ventilator Mechanical Ventilator 10/26/19 12:00 40 10/26/19 11:00 61 28 40 10/26/19 09:29 59 10/26/19 09:26 116/59 10/26/19 09:00 100 10/26/19 08:00 40 10/26/19 08:00 98.1 63 23 116/59 (78) 100 10/26/19 08:00 Mechanical Ventilator Mechanical Ventilator Mechanical Ventilator 10/26/19 07:10 58 21 40 10/26/19 06:00 60 10/26/19 05:56 97.6 10/26/19 05:27 133/57 9/12/20 05:18 57 133/57 10/26/19 04:00 Mechanical Ventilator Mechanical Ventilator Mechanical Ventilator 10/26/19 04:00 98.0 55 22 127/58 (81) 100 10/26/19 04:00 40 10/26/19 02:56 55 20 10/26/19 00:00 Mechanical Ventilator Mechanical Ventilator Mechanical Ventilator 10/26/19 00:00 97.4 52 16 112/51 (71) 98 10/26/19 00:00 56 10/26/19 00:00 40 10/25/19 22:53 69 19 10/25/19 21:34 125/50 10/25/19 21:33 70 125/50 Intake and Output 10/25/19 10/26/19 19:00 07:00 Intake Total 580 ml 720 ml Output Total 900 ml Balance 580 ml -180 ml Intake Free Water 100 ml 200 ml Tube Feeding 480 ml 520 ml Output Urine Total 900 ml # Bowel Movements 1 Laboratory Tests 10/25/19 23:18: POC Whole Blood Glucose [Pending] 10/26/19 03:20: White Blood Count 8.3, Red Blood Count 3.81L, Hemoglobin 11.5L, Hematocrit 35.1L , Mean Corpuscular Volume 92, Mean Corpuscular Hemoglobin 30.1, Mean Corpuscular Hemoglobin Concent 32.7, Red Cell Distribution Width 14.3, Platelet Count 392, Mean Platelet Volume 4.7L, Neutrophils (%) (Auto) 64.7, Lymphocytes ( %) (Auto) 22.4, Monocytes (%) (Auto) 5.9, Eosinophils (%) (Auto) 5.9H, Basophils (%) (Auto) 1.0, Sodium Level 135L, Potassium Level 4.1, Chloride Level 99, Carbon Dioxide Level 26, Anion Gap 10, Blood Urea Nitrogen 105H, Creatinine 2.9H, Estimat Glomerular Filtration Rate 17.4, Glucose Level 110H, Calcium Level 8.9, Phosphorus Level 6.1H, Magnesium Level 3.6H, Total Bilirubin 0.3, Aspartate Amino Transf (AST/SGOT) 22, Alanine Aminotransferase (ALT/SGPT) 16, Alkaline Phosphatase 180H, C-Reactive Protein, Quantitative 4.9H, Pro-B- Type Natriuretic Peptide 90226B, Total Protein 6.6, Albumin 1.7L, Globulin 4.9, Albumin/Globulin Ratio 0.3L 10/26/19 05:23: POC Whole Blood Glucose [Pending] 10/26/19 11:26: Arterial Blood pH 7.461H, Arterial Blood Partial Pressure CO2 35.9, Arterial Blood Partial Pressure O2 59.7L, Arterial Blood HCO3 25.0, Arterial Blood Oxygen Saturation 90.6L, Arterial Blood Base Excess 1.4, Rojas Test Positive 10/26/19 12:46: POC Whole Blood Glucose [Pending] 10/26/19 17:07: POC Whole Blood Glucose 108H Height (Feet): 5 Height (Inches): 5.00 Weight (Pounds): 134 General Appearance: alert, other - Non-lethargic focus and ask questions EENT: normal ENT inspection Neck: supple Cardiovascular: normal rate, regular rhythm, regularly irregular, no gallop/ murmur, no JVD Respiratory/Chest: lungs clear, normal breath sounds, respiratory distress Abdomen: normal bowel sounds, non tender, soft, no organomegaly, no mass Extremities: non-tender, other - No cyanosis clubbing with diffuse muscle wasting of lower extremity Lucas Dong MD Oct 26, 2019 20:36
[2019-10-27] VITALS: BP 154/59
[2019-10-27 04:00] VITALS: BP 155/66
[2019-10-27] MEDS: dilTIAZem HCl 30mg tab GT SCH ×3 (05:14→21:25)
[2019-10-27] MEDS: NovoLOG Insulin Flexpen SUBQ SCH ×4 (05:18→23:48)
[2019-10-27] MEDS: Docusate 100mg/10ml Liq GT SCH ×3 (05:25→21:27)
[2019-10-27] MEDS: Metoclopramide 10mg/10ml Liq GT SCH ×4 (05:25→23:34)
[2019-10-27] MEDS: HYDROmorphone 2mg tab GT SCH ×3 (05:25→21:25)
--- NOTE | 2019-10-27 07:16 | General Progress Note ---
Assessment/Plan Status: stable, other - Mood has improved he is able to smile there is no continuous tearing overall she looks better today energy looking the last several days continue with the same management Assessment/Plan: Assessment and Recs # Leukocytosis, now with gram positive bacteremias well as pna noted --> historically --> PPM site (pocket) infection (redness and pain, bacteremia) and likely pocket abscess - no vegetation seen on ABBIE --> is s'p pm removal and also pocket infection is better --> per cards recs in re to tach/davis --> wbc 15-->19-->17-->15-->13->12-->13-->12>13-->18-->9-->7-->16-->17->9.4-->11 -->11.4-->11.3 --> ABX cefepime/levaquin--> vanc/angelo-> daptomycin-->Angelo --> ID recs are noted # Anemia of chronic disease due to underlying chronic medical issues, multifactorial --> Anemia workup has been reviewed, cw acd --> No evidence of hemolysis is noted, peripheral smear has been reviewed. --> Hgb goal >7. Transfuse prn. --> Epogen started --> Medications have been reviewed --> low threshold for gi evaluation in case has occult + --> hgb 7.1-->7.8-->8.9->9.2-->8.5-->9.7-->10-->8.8-->9.6-->8.7->8.6-->7.2->8.7- >9.1-->9.2-->9-->8.7-->9.3-->9.8-->10->10.3-->10.8->10.5->10.7 --> 1 unit prbc 09/27 # Thrombocytois is likely reactive process, is s/p infection --> plt trend 610k-->706k-->354 --> p smear reviewed # Acute hypoxic respiratory failure s/p intubation 11/23- ?ARDS --> on vent/trach # Gram positive bacteremia- real bacteremia- 2ry to above and probable PNA --> per id care # JAVIER initially >2 --> on ivfs # Elevated d-dimer --> venous duplex and v/q scan neg --> negative results # Dysphagia s/p peg # Thoracic aortic dissection s/p repair early 2017 # Psychiatric history on ativan/haldol # [place] resident # Dvt ppx --> heparin sq The timing of this note does not necessarily reflect the time of the patient was seen. Greatly appreciate consultation. Subjective Constitutional: Denies: no symptoms, chills, diaphoresis, fever, malaise, weakness, other HEENT: Denies: no symptoms, eye pain, blurred vision, tearing, double vision, ear pain, ear discharge, nose pain, nose congestion, throat pain, throat swelling, mouth pain, mouth swelling, other Cardiovascular: Denies: no symptoms, chest pain, edema, irregular heart rate, lightheadedness, palpitations, syncope, other Respiratory: Denies: no symptoms, cough, orthopnea, shortness of breath, SOB with excertion, SOB at rest, sputum, stridor, wheezing, other Gastrointestinal/Abdominal: Denies: no symptoms, abdomen distended, abdominal pain, black stools, tarry stools, blood in stool, constipated, diarrhea, difficulty swallowing, nausea, poor appetite, poor fluid intake, rectal bleeding , vomiting, other Genitourinary: Denies: no symptoms, burning, discharge, frequency, flank pain, hematuria, incontinence, pain, urgency, other Neurologic/Psychiatric: Denies: no symptoms, anxiety, depressed, emotional problems, headache, numbness, paresthesia, pre-existing deficit, seizure, tingling, tremors, weakness, other Endocrine: Denies: no symptoms, excessive sweating, flushing, intolerance to cold, intolerance to heat, increased hunger, increased thirst, increased urine, unexplained weight gain, unexplained weight loss, other Allergies: Coded Allergies: No Known Allergies (Unverified , 10/10/17) Subjective 09/16 on vent now, consulted in am pulm, on vent setting, labs noted, hep sq 09/17 meds noted, cbc noted, labs noted, no bleeding 09/18 is to undergo potential v/q scan given abg, labs noted, resless, on ativan, to get haldol today, roman rn 09/19 remains agitated, covering, with sacral wound seeping, likely cause of anemia, roman rn 09/26 restless, remains agitated, gtube ripped, eval with rn, and vosoghi consulted 09/27 remains on vent, agitated, seen by gi, hgb low, roman George to transfuse 1 unit prbc 09/28 meds noted, no bleeding, on vent, s/p blood tranfusion, cbc pending, roman rn 09/29 remains in the icu, roman rn in the am, agitated, on versed, fentanyl, restraints 09/30 in icu, trach to vent, on gtube feeds, fentanyl, agitated 10/01 in icu, roman Ayoub rn, no bleeding, sleeping, labs noted, hgb >9 10/02 sedated in icu, is on vent, roman rn, more alert and more conversive with face grimaces 10/03 labs have been reviewed, no bleeding, icu, meds reviewed, on fentanyl and versed, to consult psych 10/05 remains on fentanyl, also with restraints, no bleeding, cbc ordered 10/06 remains obtunded, though reactive when proded, labs pending from am 10/07 hypertensive, asleep, no bleeding, roman ramesh, no major night sweats\ 10/08 formula leaking from gtube site, no bleeding, with some minor residual 10/09 remains on gtube feeds, on lactulose, no major changes, confused but nods 10/10 labs reviewed, lactulose discontinued as having diarrhea, no bleeding 10/12 meds reviewed, no bleeding, heparin given, roman Starr rn in am, comfortable 10/13 labs are noted, no bleeding, cbc is ordered for today, somewhat agitated 10/14 has been complaining of pain and frowning, no bleeding, hgb reviewed 10/15 hgb 10.4, no bleeding, stool is hard, difficult to collect for c.diff 10/16 restless, agitated overnight, getting haldol prn, roman ramesh at bedside 10/17 labs are noted, no bleeding, meds reviewed, wbc 17k, on abx 10/19 labs are noted, no bleeding, meds noted, no major changes, with v/t, peg 10/20 on vent, with gtube and raymond, no bleeding, labs are noted 10/21 is trach to vent, with gtube in place, left ij hd in place, no bleeding 10/22 labs are noted, have been revierwed, no bleeding or chills, meds noted 10/23 labs reviewed, no bleeding, labs reviewed, no major changes overnight 10/24 no acute events, no bleeding, labs reviewed, remains on vent 10/26 has been turned, repositioned per load checker, comfortable, labs ordered Objective Last 24 Hour Vital Signs Date Time Temp Pulse Resp B/P (MAP) Pulse Ox O2 Delivery O2 Flow Rate FiO2 10/27/19 05:55 99.0 10/27/19 05:14 59 152/76 10/27/19 04:00 Mechanical Ventilator Mechanical Ventilator Mechanical Ventilator 10/27/19 04:00 99.0 57 24 155/66 (95) 97 10/27/19 04:00 40 10/27/19 04:00 62 10/27/19 02:55 58 23 40 10/27/19 00:00 Mechanical Ventilator Mechanical Ventilator Mechanical Ventilator 10/27/19 00:00 98.2 58 27 154/59 (90) 97 10/27/19 00:00 40 10/27/19 00:00 58 10/26/19 22:46 58 23 40 10/26/19 22:00 59 153/68 10/26/19 20:14 149/58 10/26/19 20:00 Mechanical Ventilator Mechanical Ventilator Mechanical Ventilator 10/26/19 20:00 97.9 62 30 149/58 (88) 95 10/26/19 20:00 40 10/26/19 20:00 58 10/26/19 18:34 62 31 40 10/26/19 17:20 127/55 10/26/19 16:41 65 10/26/19 16:00 Mechanical Ventilator Mechanical Ventilator Mechanical Ventilator 10/26/19 16:00 97.9 63 30 127/55 (79) 100 10/26/19 16:00 40 10/26/19 15:00 59 29 40 10/26/19 13:41 61 116/59 10/26/19 12:00 61 10/26/19 12:00 98.2 61 24 134/52 (79) 100 10/26/19 12:00 Mechanical Ventilator Mechanical Ventilator Mechanical Ventilator 10/26/19 12:00 40 10/26/19 11:00 61 28 40 10/26/19 09:29 59 10/26/19 09:26 116/59 10/26/19 09:00 100 10/26/19 08:00 40 10/26/19 08:00 98.1 63 23 116/59 (78) 100 10/26/19 08:00 Mechanical Ventilator Mechanical Ventilator Mechanical Ventilator Intake and Output 10/26/19 10/27/19 19:00 07:00 Intake Total 1100 ml 640 ml Output Total 401 ml 900 ml Balance 699 ml -260 ml Intake Free Water 200 ml 200 ml Tube Feeding 480 ml 440 ml Other 420 ml Output Urine Total 400 ml 900 ml Stool Total 1 ml # Bowel Movements 1 1 Laboratory Tests 10/26/19 11:26: Arterial Blood pH 7.461H, Arterial Blood Partial Pressure CO2 35.9, Arterial Blood Partial Pressure O2 59.7L, Arterial Blood HCO3 25.0, Arterial Blood Oxygen Saturation 90.6L, Arterial Blood Base Excess 1.4, Rojas Test Positive 10/26/19 12:46: POC Whole Blood Glucose [Pending] 10/26/19 17:07: POC Whole Blood Glucose 108H 10/26/19 23:43: POC Whole Blood Glucose 90 10/27/19 04:54: Random Gentamicin Level [Pending] 10/27/19 05:18: POC Whole Blood Glucose 105 Height (Feet): 5 Height (Inches): 5.00 Weight (Pounds): 134 Objective Physical Exam: Vitals: reviewed General: NAD HEENT: nc, at Neck: supple ++tracn/vent Chest: clear breath sounds bilaterally Cardiovascular: RRR, no s3, s4 Abdomen: soft, nontender, nd +gtube Extremities: no cce, normal range of motion Neuro: alert Evan Muhammad MD Oct 27, 2019 07:16
[2019-10-27 08:00] VITALS: BP 151/64
[2019-10-27] MEDS: metOLazone 2.5 MG TAB GT SCH (08:25)
[2019-10-27] MEDS: Nephrovite tab (Rena-Vite) ORAL SCH (08:26)
[2019-10-27] MEDS: Minoxidil 2.5mg tab ORAL SCH ×2 (08:26→21:26)
[2019-10-27] MEDS: Ascorbic Acid 500mg tab ORAL SCH (08:26)
[2019-10-27] MEDS: Lisinopril 20mg tab GT SCH ×2 (08:27→17:03)
[2019-10-27] MEDS: Heparin 5000 units/ml inj SUBQ SCH ×2 (08:28→21:28)
[2019-10-27 08:57] LABS: CALCIUM 8.6 MG/DL (8.5-10.1); CREATININE 2.8 MG/DL (0.55-1.30); POTASSIUM 3.9 MMOL/L (3.5-5.1)
[2019-10-27 09:01] LABS: ALBUMIN 2.1 G/DL (3.4-5.0); ALBUMIN/GLOBULIN RATIO 0.5 (1.0-2.7); BILIRUBIN,TOTAL 0.3 MG/DL (0.2-1.0); PHOSPHORUS 5.3 MG/DL (2.5-4.9)
--- NOTE | 2019-10-27 09:30 | Pulmonology Progress Note ---
Yara Castro [employer] 10/27/19 0930: Subjective ROS Limited/Unobtainable: Yes Allergies: Coded Allergies: No Known Allergies (Unverified , 10/10/17) Subjective in PAULIE tolerates CPAP trials with PS 8 for 8 hrs no signs of resp distress denies CP, SOB remains afebrile, no leukocytosis labs for this am pending dc plan in progress Objective Last 24 Hour Vital Signs Date Time Temp Pulse Resp B/P (MAP) Pulse Ox O2 Delivery O2 Flow Rate FiO2 10/27/19 09:00 98 10/27/19 08:27 151/64 10/27/19 08:26 151/64 10/27/19 08:00 97.9 55 22 151/64 (93) 99 10/27/19 07:10 55 25 40 10/27/19 05:55 99.0 10/27/19 05:14 59 152/76 10/27/19 04:00 Mechanical Ventilator Mechanical Ventilator Mechanical Ventilator 10/27/19 04:00 99.0 57 24 155/66 (95) 97 10/27/19 04:00 40 10/27/19 04:00 62 10/27/19 02:55 58 23 40 10/27/19 00:00 Mechanical Ventilator Mechanical Ventilator Mechanical Ventilator 10/27/19 00:00 98.2 58 27 154/59 (90) 97 10/27/19 00:00 40 10/27/19 00:00 58 10/26/19 22:46 58 23 40 10/26/19 22:00 59 153/68 10/26/19 20:14 149/58 10/26/19 20:00 Mechanical Ventilator Mechanical Ventilator Mechanical Ventilator 10/26/19 20:00 97.9 62 30 149/58 (88) 95 10/26/19 20:00 40 10/26/19 20:00 58 10/26/19 18:34 62 31 40 10/26/19 17:20 127/55 10/26/19 16:41 65 10/26/19 16:00 Mechanical Ventilator Mechanical Ventilator Mechanical Ventilator 10/26/19 16:00 97.9 63 30 127/55 (79) 100 10/26/19 16:00 40 10/26/19 15:00 59 29 40 10/26/19 13:41 61 116/59 10/26/19 12:00 61 10/26/19 12:00 98.2 61 24 134/52 (79) 100 10/26/19 12:00 Mechanical Ventilator Mechanical Ventilator Mechanical Ventilator 10/26/19 12:00 40 10/26/19 11:00 61 28 40 Intake and Output 10/26/19 10/27/19 19:00 07:00 Intake Total 1100 ml 640 ml Output Total 401 ml 900 ml Balance 699 ml -260 ml Intake Free Water 200 ml 200 ml Tube Feeding 480 ml 440 ml Other 420 ml Output Urine Total 400 ml 900 ml Stool Total 1 ml # Bowel Movements 1 1 Objective General Appearance: no apparent distress, bedridden middle age chronically ill looking female on vent AC 500-20- 40%, PEEP 5, awake, calm-currently on CPAP PS8 Lines, tubes and drains: left jugular HD catheter HEENT: normocephalic, atraumatic, anicteric, trach - Shiley #7 cuffed XLT, secretions small amount, yellow color , thick consistency Respiratory/Chest: no accessory muscle use, BS overall CTAB Cardiovascular/Chest: normal rate, regular rhythm - SR on tele Abdomen: normal bowel sounds, non tender, soft, G tube Genitourinary/Rectal: Norman Extremities: no edema Skin Exam: warm/dry, multiple tattoos all over the body Neurologic: awake, no gross focal Musculoskeletal: atrophy - BLE Laboratory Tests 10/26/19 11:26: Arterial Blood pH 7.461H, Arterial Blood Partial Pressure CO2 35.9, Arterial Blood Partial Pressure O2 59.7L, Arterial Blood HCO3 25.0, Arterial Blood Oxygen Saturation 90.6L, Arterial Blood Base Excess 1.4, Rojas Test Positive 10/26/19 12:46: POC Whole Blood Glucose [Pending] 10/26/19 17:07: POC Whole Blood Glucose 108H 10/26/19 23:43: POC Whole Blood Glucose 90 10/27/19 04:48: Sodium Level 139, Potassium Level 3.9, Chloride Level 102, Carbon Dioxide Level 26, Anion Gap 11, Blood Urea Nitrogen 99H, Creatinine 2.8H, Estimat Glomerular Filtration Rate 18.1, Glucose Level 109H, Calcium Level 8.6, Phosphorus Level 5.3H, Magnesium Level 3.4H, Total Bilirubin 0.3, Aspartate Amino Transf (AST/ SGOT) 26, Alanine Aminotransferase (ALT/SGPT) 19, Alkaline Phosphatase 203H, Total Protein 6.7, Albumin 2.1L, Globulin 4.6, Albumin/Globulin Ratio 0.5L 10/27/19 04:54: White Blood Count [Pending], Red Blood Count [Pending], Hemoglobin [Pending], Hematocrit [Pending], Mean Corpuscular Volume [Pending], Mean Corpuscular Hemoglobin [Pending], Mean Corpuscular Hemoglobin Concent [Pending], Red Cell Distribution Width [Pending], Platelet Count [Pending], Mean Platelet Volume [ Pending], Neutrophils (%) (Auto) [Pending], Lymphocytes (%) (Auto) [Pending], Monocytes (%) (Auto) [Pending], Eosinophils (%) (Auto) [Pending], Basophils (%) (Auto) [Pending], Random Gentamicin Level 2.3 10/27/19 05:18: POC Whole Blood Glucose 105 Current Medications Medications (Trade) Dose Ordered Sig/Penny Route PRN Reason Start Time Stop Time Status Last Admin Dose Admin Acetaminophen (Tylenol) 500 mg Q4H PRN GT Mild Pain (Pain Scale 1-3) 10/23/19 14:45 11/16/19 18:44 10/26/19 11:00 Ascorbic Acid (Vitamin C) 500 mg DAILY ORAL 10/11/19 09:00 11/05/19 08:59 10/27/19 08:26 Chlorhexidine Gluconate (Ling-Hex 2%) 1 applic DAILY@2000 TOPIC 10/11/19 20:00 12/22/19 19:59 10/26/19 20:14 Clonidine HCl (Catapres TTS-3) 1 patch QWEEK TDERMAL 10/14/19 12:00 01/12/20 11:59 10/21/19 12:26 Dextrose (Dextrose 50%) 25 ml Q30M PRN IV Hypoglycemia 10/11/19 04:30 01/03/20 18:29 Dextrose (Dextrose 50%) 50 ml Q30M PRN IV Hypoglycemia 10/11/19 04:30 01/03/20 18:29 Diltiazem HCl (Cardizem Tab) 30 mg Q8HR GT 10/26/19 14:00 11/09/19 11:59 10/26/19 13:41 Docusate Sodium (Colace) 100 mg Q8HR GT 10/14/19 14:01 11/13/19 14:00 10/27/19 05:25 Epoetin Gelacio (Epoetin Gelacio(ESRD on dialysis)) 8,000 unit MON-MON-MON SUBQ 10/25/19 21:00 01/23/20 20:59 10/25/19 20:22 Gentamicin Protocol (Gentamicin pharmacy to dose) 1 ea DAILY PRN MISC Per rx protocol 10/22/19 13:45 11/21/19 13:44 Haloperidol (Haldol) 5 mg BIDPRN PRN GT Agitation 10/23/19 17:00 12/07/19 16:59 10/25/19 09:36 Heparin Sodium (Porcine) (Heparin 5000 units/ml) 5,000 units EVERY 12 HOURS SUBQ 10/11/19 09:00 10/30/19 08:59 10/27/19 08:28 Hydromorphone HCl (Dilaudid) 2 mg Q8HR GT 10/23/19 22:00 10/30/19 12:59 10/27/19 05:25 Insulin Aspart (NovoLOG) Q6HR SUBQ 10/11/19 06:00 01/03/20 20:59 Lansoprazole (Prevacid) 30 mg Q12HR GT 10/11/19 09:00 10/27/19 20:59 10/27/19 08:26 Lisinopril (PriniviL) 20 mg BID GT 10/11/19 09:00 11/08/19 17:59 10/27/19 08:27 Metoclopramide HCl (Reglan) 5 mg EVERY 6 HOURS GT 10/11/19 06:00 11/08/19 11:59 10/27/19 05:25 Metolazone (Zaroxolyn) 2.5 mg DAILY GT 10/25/19 09:00 11/22/19 08:59 10/27/19 08:25 Minoxidil (Loniten) 2.5 mg Q12HR ORAL 10/26/19 21:00 01/08/20 13:59 10/27/19 08:26 Polyethylene Glycol (Miralax) 17 gm BEDTIME ORAL 10/11/19 21:00 10/31/19 20:59 10/26/19 20:14 Risperidone (RisperDAL) 2 mg BEDTIME ORAL 10/11/19 21:00 11/19/19 20:59 10/26/19 20:15 Sorbitol (sorbitoL) 30 ml EVERY 6 HOURS PRN GT Constipation 10/11/19 06:00 10/29/19 17:59 Vitamin B Complex/ Vit C/Folic Acid (Nephrovite) 1 tab DAILY ORAL 10/11/19 09:00 11/05/19 08:59 10/27/19 08:26 Assessment/Plan Assessment/Plan ASSESSMENT Acute on chronic hypoxemic respiratory failure ( trach dependent), requiring placement on vent ( now CPAP trials) Tracheostomy status, s/p change to cuffed trach Sepsis Pulmonary edema Pleural effusion -worsening left pl effusion s/p thoracentesis L pleural effusion 09/26 -900 ml Pneumonia with MDR Pseudomonas UTI CHF ? cardiorenal COPD Acute kidney injury and chronic kidney disease-requiring start of HD Hypertension Atrial fibrillation Moderate pulm HTN Moderate AR Dysphagia , feeding by G-tube Electrolyte abnormalities Anemia Toxic metabolic encephalopathy likely due to sepsis and ARF HTN PAF Fevers. leukocytosis -resolved PLAN OF CARE PAULIE on vent AC trach changed 8/4 pm from uncuffed to cuffed Shiley#[address] chest w/out contrast: - Bilateral pleural effusions, right greater than left, with bilateral lower lobe consolidation or volume loss. -Ground-glass densities in the upper lobes bilaterally. This is not specific. -Tracheostomy. -Increased superior mediastinal density. Stability of adenopathy cannot be excluded. -Atherosclerotic change. -Gastrostomy. -Ascites. -Left renal stent with left hydronephrosis and renal atrophy. VQ scan -> low probability for PE worsening resp status was due to need for HD, now after HD started, resp status improving, down to PEEP 5 and AC 20 trach care , pulmonary toilet Mucomyst was prior dc given lots of thin secretions, continue Duoneb prn rapid COVID 19 NGT x3 off Fentanyl gtt since 10/09 FiO2 down to 40% last ABG stable 10/09 CXR 10/14 -increased right pleural fluid and parenchymal disease, doubt PNA likely fluid tolerating CPAP trials with PS 8 FiO2 40% 10/18-for 8 hrs continue CPAP trials as tolerated may continue in subacute upon discharge s/p thoracentesis L pleural effusion 09/26 am -> 900 ml fluid analysis noted, unlikely empyema given small # of WBC fup with fluid cx ( apparently never sent despite orders) cytology -> NGT, no malignant cells aspiration precautions venous Duplex BLE -> NGT DVT prophylaxis pulm toilet, BP regimen optimized as per nephro monitor volumes was on gentle IVF-> dc s/p prior diuretic-Lasix require initiation of HD continue further HD as per nephro with close monitoring of volumes, renal parameters and lytes -per nephro recs ABG pending for further assessment of acid base balance -ordered by nephro abx as per ID- recently pancx 10/14 due to fever and leukocytosis 10/14 BCX NGTD UCX 10/14 + Providencia, MDR, SCX+ Proteus ESBL, Pseudomonas MDR CXR 10/12 stable leuk 10/17, started on meropenem 10/17 -> as per ID recs, CXR 10/17 bilateral pleural effusions demonstrated. Mild interstitial and airspace congestion unchanged. CXR 10/23-> Slightly improved bilateral pleural effusions and retrocardiac consolidation, since 10/18/2019 no fevers abx changed to Gent 10/21-> for Pseudomonas MDR given prior fevers and mild leukocytosis, both resolved ECHO with pEF , moderate pulm HTN and moderate AR BP management with current regimen of BB, Cardizem and Hydralazine, remains in SR monitor HH with goal to keep Hgb >7, heme on board on EPO supportive care pain management wound care bowel regimen stable for dc from pulm standpoint dc plan in progress , challenging placement due to chronic resp failure ( need sebacate) and need for HD case discussed and evaluated by supervising physician Bang Guardado MD 10/27/19 1344: Subjective Allergies: Coded Allergies: No Known Allergies (Unverified , 10/10/17) Assessment/Plan Assessment/Plan Patient seen and examined with [employer]. Agree with above A&P as it reflects our joint deliberations. Yara Castro [employer] Oct 27, 2019 09:30 Bang Guardado MD Oct 27, 2019 13:44
[2019-10-27 09:31] LABS: BASOPHILS % (AUTO) 0.9 % (0.0-2.0); EOSINOPHILS % (AUTO) 4.3 % (0.0-3.0); HEMATOCRIT 33.8 % (37.0-47.0); HEMOGLOBIN 11.3 G/DL (12.0-16.0); LYMPHOCYTES % (AUTO) 23.6 % (20.0-45.0); MEAN CORPUSCULAR VOLUME 91 FL (80-99); MONOCYTES % (AUTO) 6.1 % (1.0-10.0); PLATELET COUNT 400 K/UL (150-450); RED BLOOD COUNT 3.73 M/UL (4.20-5.40); RED CELL DISTRIBUTION WIDTH 14.3 % (11.6-14.8); WHITE BLOOD COUNT 8.6 K/UL (4.8-10.8)
[2019-10-27 11:30] VITALS: BP 156/53
[2019-10-27] MEDS: Acetaminophen 650mg/20.3ml GT PRN ×2 (11:36→17:03)
[2019-10-27 16:00] VITALS: BP 154/68
--- NOTE | 2019-10-27 16:33 | Nephrology Progress Note ---
Assessment/Plan Problem List: (1) JAVIER (acute kidney injury) (2) Renal failure (ARF), acute on chronic (3) Dehydration (4) Electrolyte imbalance (5) Anemia (6) Respiratory failure, acute and chronic (7) COPD with exacerbation Assessment Patient is presented with sepsis and pneumonia and UTI Patient has acute renal failure, possible underlying chronic kidney failure Severe anemia Electrolyte imbalances: Hyponatremia, hypo-kalemia Chronic respiratory failure, COPD exacerbation Plan October 26: Lab reviewed. Serum creatinine a bit lower at 2.8. Urine output maintained over 500 cc in 24 hours. ABG results noted. No dialysis at this time. October 25: Labs reviewed. Serum creatinine 2.9. Calculated creatinine clearance 17 mL/min. Urine output well maintained on Zaroxolyn. Continue to monitor renal parameters. Check ABG today. Adjust blood pressure medication. Albumin bolus one-time infusion ordered. October 24: Labs reviewed. Serum creatinine slightly higher. Renal failure has an obvious prerenal picture. Up to the point that the urine output is maintained we can do for dialysis. Continue to monitor acid-base condition. October 23: Discharge canceled due to logistic reasons. Serum creatinine going up. Will adjust blood pressure medications. Down on Zaroxolyn dose. Check chemistry panel tomorrow. Continue to watch the heart rate closely. October 22: Patient last dialysis October 16. Serum creatinine is creeping up. Clinically the patient is stable. Urine output remains reasonable. Continue current management. 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 Discussed with ERASMO Sen. October 21: Patient's last dialysis was October 16. Patient has been responding to Zaroxolyn, with decent urine output, and serum creatinine being stable. At this time will abort dialysis plan and continue per current management. Blood pressure medication adjusted. October 20: Patient appears to be responding to Zaroxolyn. Will repeat 10 mg Zaroxolyn via GT today. Continue monitor renal parameters. Potassium supplements given. Dialysis as needed. October 19: Patient responded to Zaroxolyn. Urine output increased. Will try 10 mg Zaroxolyn again today. Check renal parameters tomorrow. Dialysis as needed. October 18: Last dialysis October 16. Serum creatinine rising. Oliguria persists. Continue to monitor renal parameters and dialysis as needed. October 17: It appears that the patient received dialysis last night and the dialysis nurse changed her mind about delaying to today. Today's labs reviewed. Electrolyte abnormalities corrected. Continue per consultants. October 16: Late [place] [facility] [place] due for dialysis today. Dialysis nurse informed that due to few emergencies if she can be done tomorrow. No chemistry panel for today." We will order labs on dialysis tomorrow. October 15: Last dialysis October 13. Labs were reviewed. Urine output very low. Will dialyze and ultrafiltrate tomorrow. Per consultants. October 14: Dialyzed yesterday. Labs reviewed. Medication list reviewed. Continue per consultants. October 13: Patient seen on dialysis. Tolerating well. Will check labs tomorrow. October 12: Blood pressure stable. Labs reviewed. BUN rising. Remains oliguric. Dialysis tomorrow. October 11: Blood pressure is stable. Labs reviewed. Continue as is. Dialysis as needed October 10: Blood pressure medication adjusted. Will check lab tomorrow. Dialysis as needed. Urine output remains low. October 09: Lab reviewed. Remains oliguric. Will give trial of Zaroxolyn. Continue per consultants. Adjust blood pressure medication. Will add Zaroxolyn and increased dose of Cardizem and add clonidine patch for better BP control October 08: Labs reviewed. Patient oliguric. Blood pressure elevated, BP medication adjusted. Recheck lab tomorrow. Dialysis and ultrafiltration as needed. October 07: Labs reviewed. Patient was dialyzed yesterday. 3000 mL fluid was removed. Patient appears to need periodic (twice a week minimum) dialysis for ultrafiltration. Continue to monitor renal parameters. Continue per consultants. October 06: Labs reviewed. Discussed with pulmonary. Will attempt dialysis and ultrafiltration. Continue per consultants. October 05: Lab reviewed. Serum creatinine rising. Blood pressure stabilized. Will recheck lab tomorrow. Dialysis as needed. Will increase lisinopril to 10 mg twice a day. October 04: Lab reviewed. Blood pressure medication adjusted since the patient is hypotensive. Serum creatinine rising. Recheck labs tomorrow. Dialysis as needed. Discussed with RN. October 03: Lab reviewed. Zestril added to BP medication. 1 dose of Seroquel ordered for agitation. Continue to monitor renal parameters. Continue per consultants. October 02: Lab reviewed. Potassium supplement IV given. 3% saline 250 cc ordered. Responded well to Zaroxolyn yesterday. Will continue to monitor electrolytes and renal parameters. Will increase minoxidil to 2.5 mg every 6 hours. October 01: Labs reviewed. Potassium supplement given. Last dialysis September 29. Serum creatinine rising gradually. Urine output very low. Patient appears to continue to need dialysis at least twice a week. Blood pressure still running high I will switch the hydralazine to minoxidil. We will give 1 dose of Zaroxolyn 10 mg today. Will check renal parameters tomorrow. September 30: Patient dialyzed yesterday. 3 L removed. Labs reviewed. Potassium supplement given. Continue per consultants. It appears that the patient required dialysis 2-3 times a week. September 29: Lab reviewed. Chest x-ray result noted. Continues to have pulmonary congestion. Urine output low. Will attempt dialysis again today with ultrafiltration. September 28: Lab reviewed. ABG reviewed. Potassium supplement given. No dialysis at this point. Will eval patient status and renal parameters daily. September 27: Lab reviewed. Last dialysis September 25. Continue to monitor renal parameters. Hemodialysis as needed. September 26: Lab reviewed. Dialyzed yesterday. Potassium supplement given. Medication list reviewed. Will observe renal parameters and arrange for dialysis as needed. September 25: Lab reviewed. Currently on hemodialysis. Tolerating well. Stable from renal standpoint of view. Blood pressure medication adjusted by increasing hydralazine. September 24: Lab reviewed. ABG reviewed. Both lab and ABG much improved. Patient was dialyzed yesterday. We will attempt dialysis tomorrow again. Will adjust that blood pressure medication dosages. September 23: Lab reviewed. ABG reviewed. Patient acidotic. IV bicarb 1 dose is given. Patient has dialysis catheter. Will order dialysis for ultrafiltration and correction of acid-base. Discussed with ERASMO Mohr. September 22: Labs reviewed. Potassium high. Kayexalate and Reglan given. Will discuss with the consultants regarding initiation of dialysis. September 21: Patient is being sedated. Labs reviewed. Potassium supplement discontinued. GFR 20. Continue per current treatment plan. Dialysis and ultrafiltration is a consideration. September 20: Patient periodically agitated. Labs reviewed. Creatinine 2.4. Medication reviewed. Continue per consultants. Calculated creatinine clearance 21. May need isolated ultrafiltration on dialysis. Will discuss with PMD. Meanwhile hemoglobin is lower, defer transfusion to PMD. September 19: DC IV fluid. Zaroxolyn via GT tube. Potassium supplement. Attempt to diurese. Chest CT as bilateral pleural effusion. If diuresis unsuccessful, will consider dialysis and ultrafiltration. September 18: Potassium supplement IV given. Hemoglobin stable. Patient remains full code. Continue per consultants. Previously: Potassium supplement IV Slow IV hydration Epogen subcu Adjust blood pressure medication IV fluid, rate adjusted Norman catheter, intake and output Monitor renal parameters Avoid nephrotoxic's Antibiotics Per orders 2D echocardiogram Kidney ultrasound Subjective ROS Limited/Unobtainable: Yes Objective Objective Last 24 Hour Vital Signs Date Time Temp Pulse Resp B/P (MAP) Pulse Ox O2 Delivery O2 Flow Rate FiO2 10/27/19 16:00 57 10/27/19 15:00 59 26 40 10/27/19 14:07 57 156/53 10/27/19 12:00 40 10/27/19 12:00 57 10/27/19 12:00 Mechanical Ventilator Mechanical Ventilator Mechanical Ventilator 10/27/19 11:30 98.0 57 20 156/53 (87) 99 10/27/19 10:40 55 24 40 10/27/19 09:00 98 10/27/19 08:27 151/64 10/27/19 08:26 151/64 10/27/19 08:00 40 10/27/19 08:00 Mechanical Ventilator Mechanical Ventilator Mechanical Ventilator 10/27/19 08:00 97.9 55 22 151/64 (93) 99 10/27/19 08:00 54 10/27/19 07:10 55 25 40 10/27/19 05:55 99.0 10/27/19 05:14 59 152/76 10/27/19 04:00 Mechanical Ventilator Mechanical Ventilator Mechanical Ventilator 10/27/19 04:00 99.0 57 24 155/66 (95) 97 10/27/19 04:00 40 10/27/19 04:00 62 10/27/19 02:55 58 23 40 10/27/19 00:00 Mechanical Ventilator Mechanical Ventilator Mechanical Ventilator 10/27/19 00:00 98.2 58 27 154/59 (90) 97 10/27/19 00:00 40 10/27/19 00:00 58 10/26/19 22:46 58 23 40 10/26/19 22:00 59 153/68 10/26/19 20:14 149/58 10/26/19 20:00 Mechanical Ventilator Mechanical Ventilator Mechanical Ventilator 10/26/19 20:00 97.9 62 30 149/58 (88) 95 10/26/19 20:00 40 10/26/19 20:00 58 10/26/19 18:34 62 31 40 10/26/19 17:20 127/55 10/26/19 16:41 65 Intake and Output 10/26/19 10/27/19 19:00 07:00 Intake Total 1100 ml 640 ml Output Total 401 ml 900 ml Balance 699 ml -260 ml Intake Free Water 200 ml 200 ml Tube Feeding 480 ml 440 ml Other 420 ml Output Urine Total 400 ml 900 ml Stool Total 1 ml # Bowel Movements 1 1 Laboratory Tests 10/26/19 17:07: POC Whole Blood Glucose 108H 10/26/19 23:43: POC Whole Blood Glucose 90 10/27/19 04:48: Sodium Level 139, Potassium Level 3.9, Chloride Level 102, Carbon Dioxide Level 26, Anion Gap 11, Blood Urea Nitrogen 99H, Creatinine 2.8H, Estimat Glomerular Filtration Rate 18.1, Glucose Level 109H, Calcium Level 8.6, Phosphorus Level 5.3H, Magnesium Level 3.4H, Total Bilirubin 0.3, Aspartate Amino Transf (AST/ SGOT) 26, Alanine Aminotransferase (ALT/SGPT) 19, Alkaline Phosphatase 203H, Total Protein 6.7, Albumin 2.1L, Globulin 4.6, Albumin/Globulin Ratio 0.5L 10/27/19 04:54: White Blood Count 8.6, Red Blood Count 3.73L, Hemoglobin 11.3L, Hematocrit 33.8L , Mean Corpuscular Volume 91, Mean Corpuscular Hemoglobin 30.2, Mean Corpuscular Hemoglobin Concent 33.4, Red Cell Distribution Width 14.3, Platelet Count 400, Mean Platelet Volume 4.5L, Neutrophils (%) (Auto) 65.0, Lymphocytes ( %) (Auto) 23.6, Monocytes (%) (Auto) 6.1, Eosinophils (%) (Auto) 4.3H, Basophils (%) (Auto) 0.9, Random Gentamicin Level 2.3 10/27/19 05:18: POC Whole Blood Glucose 105 10/27/19 11:09: POC Whole Blood Glucose 124H Height (Feet): 5 Height (Inches): 5.00 Weight (Pounds): 134 General Appearance: no apparent distress Objective No change Johnny Houston MD Oct 27, 2019 16:33
--- NOTE | 2019-10-27 16:47 | Surgery Progress Note ---
Surgery Progress Note Subjective Symptoms: improved, tolerating diet, passing flatus Objective Last 24 Hour Vital Signs Date Time Temp Pulse Resp B/P (MAP) Pulse Ox O2 Delivery O2 Flow Rate FiO2 10/27/19 16:00 40 10/27/19 16:00 57 10/27/19 15:00 59 26 40 10/27/19 14:07 57 156/53 10/27/19 12:00 40 10/27/19 12:00 57 10/27/19 12:00 Mechanical Ventilator Mechanical Ventilator Mechanical Ventilator 10/27/19 11:30 98.0 57 20 156/53 (87) 99 10/27/19 10:40 55 24 40 10/27/19 09:00 98 10/27/19 08:27 151/64 10/27/19 08:26 151/64 10/27/19 08:00 40 10/27/19 08:00 Mechanical Ventilator Mechanical Ventilator Mechanical Ventilator 10/27/19 08:00 97.9 55 22 151/64 (93) 99 10/27/19 08:00 54 10/27/19 07:10 55 25 40 10/27/19 05:55 99.0 10/27/19 05:14 59 152/76 10/27/19 04:00 Mechanical Ventilator Mechanical Ventilator Mechanical Ventilator 10/27/19 04:00 99.0 57 24 155/66 (95) 97 10/27/19 04:00 40 10/27/19 04:00 62 10/27/19 02:55 58 23 40 10/27/19 00:00 Mechanical Ventilator Mechanical Ventilator Mechanical Ventilator 10/27/19 00:00 98.2 58 27 154/59 (90) 97 10/27/19 00:00 40 10/27/19 00:00 58 10/26/19 22:46 58 23 40 10/26/19 22:00 59 153/68 10/26/19 20:14 149/58 10/26/19 20:00 Mechanical Ventilator Mechanical Ventilator Mechanical Ventilator 10/26/19 20:00 97.9 62 30 149/58 (88) 95 10/26/19 20:00 40 10/26/19 20:00 58 10/26/19 18:34 62 31 40 10/26/19 17:20 127/55 I&O Intake and Output 10/26/19 10/27/19 19:00 07:00 Intake Total 1100 ml 640 ml Output Total 401 ml 900 ml Balance 699 ml -260 ml Intake Free Water 200 ml 200 ml Tube Feeding 480 ml 440 ml Other 420 ml Output Urine Total 400 ml 900 ml Stool Total 1 ml # Bowel Movements 1 1 Dressing: saturated Cardiovascular: RSR Respiratory: decreased breath sounds Abdomen: soft, non-tender, present bowel sounds Extremities: no edema, no tenderness, no cyanosis Laboratory Tests Test 10/26/19 17:07 10/26/19 23:43 10/27/19 04:48 10/27/19 04:54 POC Whole Blood Glucose 108 MG/DL (74-106) H 90 MG/DL (74-106) Sodium Level 139 MMOL/L (136-145) Potassium Level 3.9 MMOL/L (3.5-5.1) Chloride Level 102 MMOL/L (98-107) Carbon Dioxide Level 26 MMOL/L (21-32) Anion Gap 11 mmol/L (5-15) Blood Urea Nitrogen 99 mg/dL (7-18) H Creatinine 2.8 MG/DL (0.55-1.30) H Estimat Glomerular Filtration Rate 18.1 mL/min (>60) Glucose Level 109 MG/DL (74-106) H Calcium Level 8.6 MG/DL (8.5-10.1) Phosphorus Level 5.3 MG/DL (2.5-4.9) H Magnesium Level 3.4 MG/DL (1.8-2.4) H Total Bilirubin 0.3 MG/DL (0.2-1.0) Aspartate Amino Transf (AST/SGOT) 26 U/L (15-37) Alanine Aminotransferase (ALT/SGPT) 19 U/L (12-78) Alkaline Phosphatase 203 U/L (46-116) H Total Protein 6.7 G/DL (6.4-8.2) Albumin 2.1 G/DL (3.4-5.0) L Globulin 4.6 g/dL Albumin/Globulin Ratio 0.5 (1.0-2.7) L White Blood Count 8.6 K/UL (4.8-10.8) Red Blood Count 3.73 M/UL (4.20-5.40) L Hemoglobin 11.3 G/DL (12.0-16.0) L Hematocrit 33.8 % (37.0-47.0) L Mean Corpuscular Volume 91 FL (80-99) Mean Corpuscular Hemoglobin 30.2 PG (27.0-31.0) Mean Corpuscular Hemoglobin Concent 33.4 G/DL (32.0-36.0) Red Cell Distribution Width 14.3 % (11.6-14.8) Platelet Count 400 K/UL (150-450) Mean Platelet Volume 4.5 FL (6.5-10.1) L Neutrophils (%) (Auto) 65.0 % (45.0-75.0) Lymphocytes (%) (Auto) 23.6 % (20.0-45.0) Monocytes (%) (Auto) 6.1 % (1.0-10.0) Eosinophils (%) (Auto) 4.3 % (0.0-3.0) H Basophils (%) (Auto) 0.9 % (0.0-2.0) Random Gentamicin Level 2.3 ug/mL Test 10/27/19 05:18 10/27/19 11:09 POC Whole Blood Glucose 105 MG/DL (74-106) 124 MG/DL (74-106) H Plan Problems: (1) Anemia (2) Proteinuria (3) UTI (urinary tract infection) (4) ARF (acute renal failure) (5) ACS (acute coronary syndrome) (6) Respiratory failure, acute and chronic (7) HCAP (healthcare-associated pneumonia) (8) Abrasion of lip, initial encounter (9) COPD with exacerbation (10) Hypokalemia (11) Sepsis Assessment & Plan: Leukocytosis, anemia, abnormal labs. Renal insufficiency potentially dehydrated Abnormal LFTs alk phos elevated Urine noted significant bacteria likely UTI etiology Wound stable still requiring local care IV antibiotics per infectious disease Discussed with mangle roller Dr. Berkowitz air mattress turn q2h nutritional tf will follow with recs thank you CT noted pending VQ scan - noted poor study low prob PE work respiratory increasing needs sedation weaning vent settings 80% peep 10 now comfortable Hd line in receiving HD plan for left thora 09/26 cont weaning vent as tolerated improving labs improved placement d/c planning (12) Chronic respiratory failure (13) Ascites (14) Bacteremia (15) Hypernatremia (16) Pleural effusion (17) Pacemaker (18) Aortic dissection, thoracic (19) Tracheostomy in place Assessment & Plan: trach stable no bleeding currently likely tongue etiology of mild oozing currently hemostatic without trauma (20) Feeding by G-tube Assessment & Plan: okay to resume tube feeds via g tube patent and functional dressings okay DAILY ESTIMATED NEEDS: Needs based on Pulmonary, wound 49kg 30-35 kcals/kg 1835-2083 total kcals 1.25-2 g protein/kg 61-98 g total protein Fluid per MD NUTRITION DIAGNOSIS: * Swallowing difficulty R/T dysphagia, respiratory status as evidenced by vent dep via T-collar, GT Dep. (CURRENT TF: Nepro @45ml/hr x 24 hrs) ENTERAL NUTRITION RECOMMENDATIONS: Nepro @ 40ml/hr x 24 hrs to provide 960ml, 1728kcal, 78g prot, 698ml free water * Rec LOWER current rate to 40ml/hr for 24 hrs run. 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 Base of wound is granular with bone exposure at base of sacrococcygeal.(L)10.5cm x (W06.5cm x (D) 2.8cm , undermining 11-3 by 3.6cm @12 o'clock. small amt serosanguineous exudate noted . [place] epithelial along edges bordered by darker skin tone without erythema. Resolving Pressure injury L ischium. Base of wound is 95% pink epithelial ,5% noni at center base of wound. No exudate noted. Both heels are boggy with non-Blanching erythema. Tx.plan: Cleanse Sacral wound with Saline. Loosely pack with Hydrogel impregnated Kerlix. Apply Moisture Barrier Periwound. Cover with Optifoam drsg Daily and prn. Apply Moisture Barrier paste to L Ischium. Cover with Optifoam drsg. Changee very 3 days and prn. Apply Cavilon Skin Barrier to both heels. Cover each heel with Optifoam drsgs. Change every 7 days and prn. Reposition at least every 2hours or as tolerated. Off-load heels with pillow. APM/MAXWELL Mattress overlay. Sacral wound resolving. Wound is smaller in size with less depth and undermining (L)8.5cm x (W)5cm x (D)1.3cm, undermining clockwise 11-3 by 2.1cm @ 12o'clock. Base of wound is pink and moist, small area of bone exposure at base. Small amt. seropurulent exudate noted. No odor noted. Periwound without evidence of further skin breakdown noted. Wound Tx. are effective and continued as ordered. Al wound prevention protocols continued as care-planned. Tx.Plan:Cleanse sacral wound with Saline. Loosely pack with Hydrogel impregnated kerlix. Apply Moisture Barrier Paste periwound. Cover with Optifoam drsg Daily and prn. Apply Cavilon Skin Barrier to both heels and malleoli. Cover eachsite with Optifoam drsgs. Change every 7 days and prn. Reposition at least every 2hours or as tolerated. Off-load heels with pillow. APM/Maxwell Mattress overlay. Lane Saavedra Oct 27, 2019 16:47
[2019-10-27 20:00] VITALS: BP 153/51
[2019-10-27] MEDS: Miralax 17gm pkt ORAL SCH (21:26)
[2019-10-27] MEDS: Dyna-Hex 2% Top Sol 2oz TOPIC SCH (21:32)
[2019-10-28] VITALS: BP 144/68
[2019-10-28 04:00] VITALS: BP 145/70
[2019-10-28] MEDS: HYDROmorphone 2mg tab GT SCH ×2 (05:21→13:29)
[2019-10-28] MEDS: Docusate 100mg/10ml Liq GT SCH ×2 (05:21→13:29)
[2019-10-28] MEDS: Metoclopramide 10mg/10ml Liq GT SCH ×3 (05:21→17:29)
[2019-10-28] MEDS: dilTIAZem HCl 30mg tab GT SCH ×2 (05:22→13:29)
[2019-10-28] MEDS: NovoLOG Insulin Flexpen SUBQ SCH ×3 (05:27→17:29)
[2019-10-28 07:59] VITALS: BP 150/69
[2019-10-28] MEDS: Nephrovite tab (Rena-Vite) ORAL SCH (08:37)
[2019-10-28] MEDS: Minoxidil 2.5mg tab ORAL SCH (08:38)
[2019-10-28] MEDS: Ascorbic Acid 500mg tab ORAL SCH (08:38)
[2019-10-28] MEDS: Lisinopril 20mg tab GT SCH ×2 (08:38→17:29)
[2019-10-28] MEDS: metOLazone 2.5 MG TAB GT SCH (08:38)
[2019-10-28] MEDS: Heparin 5000 units/ml inj SUBQ SCH ×2 (08:41→20:11)
[2019-10-28 08:44] LABS: CALCIUM 8.9 MG/DL (8.5-10.1); CREATININE 2.6 MG/DL (0.55-1.30); POTASSIUM 4.2 MMOL/L (3.5-5.1)
[2019-10-28 08:49] LABS: ALBUMIN 2.1 G/DL (3.4-5.0); ALBUMIN/GLOBULIN RATIO 0.5 (1.0-2.7); BILIRUBIN,TOTAL 0.3 MG/DL (0.2-1.0); PHOSPHORUS 5.6 MG/DL (2.5-4.9)
--- NOTE | 2019-10-28 10:10 | General Progress Note ---
Assessment/Plan Problem List: (1) S/P aortic dissection repair ICD Codes: Z98.890 - Other specified postprocedural states SNOMED: 185877055, 299455617 (2) Sacral decubitus ulcer, stage IV ICD Codes: L89.154 - Pressure ulcer of sacral region, stage 4 SNOMED: 750811802, 351904977 (3) Anemia ICD Codes: D64.9 - Anemia, unspecified SNOMED: 134842593 (4) GT CLOGGED (5) Feeding by G-tube ICD Codes: Z93.1 - Gastrostomy status SNOMED: 017394889, 995689168 (6) Tracheostomy in place ICD Codes: Z93.0 - Tracheostomy status SNOMED: 342096485 (7) Pacemaker ICD Codes: Z95.0 - Presence of cardiac pacemaker SNOMED: 076138648 (8) Chronic respiratory failure ICD Codes: J96.10 - Chronic respiratory failure, unspecified whether with hypoxia or hypercapnia SNOMED: 70599823 Status: stable, other - Mood has improved he is able to smile there is no continuous tearing overall she looks better today energy looking the last several days continue with the same management Assessment/Plan: GTF min GT leak on reglan monitor for residuals repeat labs abx per ID respiratory care dc planning per primary team Subjective ROS Limited/Unobtainable: No Allergies: Coded Allergies: No Known Allergies (Unverified , 10/10/17) Objective Last 24 Hour Vital Signs Date Time Temp Pulse Resp B/P (MAP) Pulse Ox O2 Delivery O2 Flow Rate FiO2 10/28/19 09:54 98 10/28/19 08:38 150/69 10/28/19 08:38 150/69 10/28/19 08:00 Mechanical Ventilator Mechanical Ventilator Mechanical Ventilator 10/28/19 08:00 59 10/28/19 07:59 97.9 57 21 150/69 (96) 100 10/28/19 07:53 40 10/28/19 07:17 62 21 40 10/28/19 05:22 59 145/70 10/28/19 04:00 97.9 57 25 145/70 (95) 99 10/28/19 04:00 Mechanical Ventilator Mechanical Ventilator Mechanical Ventilator 10/28/19 04:00 40 10/28/19 03:40 55 10/28/19 03:06 58 23 40 10/28/19 00:00 Mechanical Ventilator Mechanical Ventilator Mechanical Ventilator 10/28/19 00:00 56 10/28/19 00:00 97.5 54 23 144/68 (93) 99 10/27/19 22:43 64 24 40 10/27/19 21:55 98.2 10/27/19 21:26 153/81 10/27/19 21:25 51 153/81 10/27/19 20:00 98.0 54 20 153/51 (85) 99 10/27/19 20:00 Mechanical Ventilator Mechanical Ventilator Mechanical Ventilator 10/27/19 20:00 40 10/27/19 19:32 54 10/27/19 19:12 55 21 40 10/27/19 17:03 158/64 10/27/19 16:00 Mechanical Ventilator Mechanical Ventilator Mechanical Ventilator 10/27/19 16:00 98.2 66 21 154/68 (96) 99 10/27/19 16:00 40 10/27/19 16:00 57 10/27/19 15:00 59 26 40 10/27/19 14:07 57 156/53 10/27/19 12:00 40 10/27/19 12:00 57 10/27/19 12:00 Mechanical Ventilator Mechanical Ventilator Mechanical Ventilator 10/27/19 11:30 98.0 57 20 156/53 (87) 99 10/27/19 10:40 55 24 40 Intake and Output 10/27/19 10/28/19 19:00 07:00 Intake Total 720 ml 640 ml Output Total 900 ml 600 ml Balance -180 ml 40 ml Intake Free Water 240 ml 200 ml Tube Feeding 480 ml 440 ml Output Urine Total 900 ml 600 ml # Bowel Movements 2 Laboratory Tests 10/27/19 11:09: POC Whole Blood Glucose 124H 10/27/19 16:38: POC Whole Blood Glucose [Pending] 10/28/19 04:45: Sodium Level 136, Potassium Level 4.2, Chloride Level 99, Carbon Dioxide Level 27, Anion Gap 10, Blood Urea Nitrogen 102H, Creatinine 2.6H, Estimat Glomerular Filtration Rate 19.7, Glucose Level 105, Calcium Level 8.9, Phosphorus Level 5.6H, Total Bilirubin 0.3, Aspartate Amino Transf (AST/SGOT) 23, Alanine Aminotransferase (ALT/SGPT) 21, Alkaline Phosphatase 225H, Total Protein 6.7, Albumin 2.1L, Globulin 4.6, Albumin/Globulin Ratio 0.5L, Random Gentamicin Level 1.7 Height (Feet): 5 Height (Inches): 5.00 Weight (Pounds): 134 General Appearance: no apparent distress EENT: normal ENT inspection Neck: supple Cardiovascular: normal rate Respiratory/Chest: decreased breath sounds Abdomen: hypoactive bowel sounds Extremities: non-tender Inder Mccauley MD Oct 28, 2019 10:10
--- NOTE | 2019-10-28 10:21 | Pulmonology Progress Note ---
Yara Castro DIRECTOR OPERATIONS 10/28/19 1021: Subjective ROS Limited/Unobtainable: No Allergies: Coded Allergies: No Known Allergies (Unverified , 10/10/17) Subjective in [place] currently on CPAP trials tolerates CPAP trials with PS 8 for 8 hrs no signs of resp distress denies CP, SOB remains afebrile, no leukocytosis dc plan in progress Objective Last 24 Hour Vital Signs Date Time Temp Pulse Resp B/P (MAP) Pulse Ox O2 Delivery O2 Flow Rate FiO2 10/28/19 09:54 98 10/28/19 08:38 150/69 10/28/19 08:38 150/69 10/28/19 08:00 Mechanical Ventilator Mechanical Ventilator Mechanical Ventilator 10/28/19 08:00 59 10/28/19 07:59 97.9 57 21 150/69 (96) 100 10/28/19 07:53 40 10/28/19 07:17 62 21 40 10/28/19 05:22 59 145/70 10/28/19 04:00 97.9 57 25 145/70 (95) 99 10/28/19 04:00 Mechanical Ventilator Mechanical Ventilator Mechanical Ventilator 10/28/19 04:00 40 10/28/19 03:40 55 10/28/19 03:06 58 23 40 10/28/19 00:00 Mechanical Ventilator Mechanical Ventilator Mechanical Ventilator 10/28/19 00:00 56 10/28/19 00:00 97.5 54 23 144/68 (93) 99 10/27/19 22:43 64 24 40 10/27/19 21:55 98.2 10/27/19 21:26 153/81 10/27/19 21:25 51 153/81 10/27/19 20:00 98.0 54 20 153/51 (85) 99 10/27/19 20:00 Mechanical Ventilator Mechanical Ventilator Mechanical Ventilator 10/27/19 20:00 40 10/27/19 19:32 54 10/27/19 19:12 55 21 40 10/27/19 17:03 158/64 10/27/19 16:00 Mechanical Ventilator Mechanical Ventilator Mechanical Ventilator 10/27/19 16:00 98.2 66 21 154/68 (96) 99 10/27/19 16:00 40 10/27/19 16:00 57 10/27/19 15:00 59 26 40 10/27/19 14:07 57 156/53 10/27/19 12:00 40 10/27/19 12:00 57 10/27/19 12:00 Mechanical Ventilator Mechanical Ventilator Mechanical Ventilator 10/27/19 11:30 98.0 57 20 156/53 (87) 99 10/27/19 10:40 55 24 40 Intake and Output 10/27/19 10/28/19 19:00 07:00 Intake Total 720 ml 640 ml Output Total 900 ml 600 ml Balance -180 ml 40 ml Intake Free Water 240 ml 200 ml Tube Feeding 480 ml 440 ml Output Urine Total 900 ml 600 ml # Bowel Movements 2 Objective General Appearance: no apparent distress, bedridden middle age chronically ill looking female on vent AC 500-20- 40%, PEEP 5, awake, calm-currently on CPAP PS8 Lines, tubes and drains: left jugular HD catheter HEENT: normocephalic, atraumatic, anicteric, trach - Shiley #7 cuffed XLT, secretions small amount, yellow color , thick consistency Respiratory/Chest: no accessory muscle use, BS overall CTAB Cardiovascular/Chest: normal rate, regular rhythm - SR on tele Abdomen: normal bowel sounds, non tender, soft, G tube Genitourinary/Rectal: Norman Extremities: no edema Skin Exam: warm/dry, multiple tattoos all over the body Neurologic: awake, no gross focal Musculoskeletal: atrophy - BLE Laboratory Tests 10/27/19 11:09: POC Whole Blood Glucose 124H 10/27/19 16:38: POC Whole Blood Glucose [Pending] 10/28/19 04:45: Sodium Level 136, Potassium Level 4.2, Chloride Level 99, Carbon Dioxide Level 27, Anion Gap 10, Blood Urea Nitrogen 102H, Creatinine 2.6H, Estimat Glomerular Filtration Rate 19.7, Glucose Level 105, Calcium Level 8.9, Phosphorus Level 5.6H, Total Bilirubin 0.3, Aspartate Amino Transf (AST/SGOT) 23, Alanine Aminotransferase (ALT/SGPT) 21, Alkaline Phosphatase 225H, Total Protein 6.7, Albumin 2.1L, Globulin 4.6, Albumin/Globulin Ratio 0.5L, Random Gentamicin Level 1.7 Current Medications Medications (Trade) Dose Ordered Sig/Penny Route PRN Reason Start Time Stop Time Status Last Admin Dose Admin Acetaminophen (Tylenol) 500 mg Q4H PRN GT Mild Pain (Pain Scale 1-3) 10/23/19 14:45 11/16/19 18:44 10/27/19 17:03 Ascorbic Acid (Vitamin C) 500 mg DAILY ORAL 10/11/19 09:00 11/05/19 08:59 10/28/19 08:38 Chlorhexidine Gluconate (Ling-Hex 2%) 1 applic DAILY@2000 TOPIC 10/11/19 20:00 12/22/19 19:59 10/27/19 21:32 Clonidine HCl (Catapres TTS-3) 1 patch QWEEK TDERMAL 10/14/19 12:00 01/12/20 11:59 10/21/19 12:26 Dextrose (Dextrose 50%) 25 ml Q30M PRN IV Hypoglycemia 10/11/19 04:30 01/03/20 18:29 Dextrose (Dextrose 50%) 50 ml Q30M PRN IV Hypoglycemia 10/11/19 04:30 01/03/20 18:29 Diltiazem HCl (Cardizem Tab) 30 mg Q8HR GT 10/26/19 14:00 11/09/19 11:59 10/27/19 14:07 Docusate Sodium (Colace) 100 mg Q8HR GT 10/14/19 14:01 11/13/19 14:00 10/28/19 05:21 Epoetin Gelacio (Epoetin Gelacio(ESRD on dialysis)) 8,000 unit MON-MON-MON SUBQ 10/25/19 21:00 01/23/20 20:59 10/25/19 20:22 Gentamicin Protocol (Gentamicin pharmacy to dose) 1 ea DAILY PRN MISC Per rx protocol 10/22/19 13:45 11/21/19 13:44 Haloperidol (Haldol) 5 mg BIDPRN PRN GT Agitation 10/23/19 17:00 12/07/19 16:59 10/25/19 09:36 Heparin Sodium (Porcine) (Heparin 5000 units/ml) 5,000 units EVERY 12 HOURS SUBQ 10/11/19 09:00 10/30/19 08:59 10/28/19 08:41 Hydromorphone HCl (Dilaudid) 2 mg Q8HR GT 10/23/19 22:00 10/30/19 12:59 10/28/19 05:21 Insulin Aspart (NovoLOG) Q6HR SUBQ 10/11/19 06:00 01/03/20 20:59 Lisinopril (PriniviL) 20 mg BID GT 10/11/19 09:00 11/08/19 17:59 10/28/19 08:38 Metoclopramide HCl (Reglan) 5 mg EVERY 6 HOURS GT 10/11/19 06:00 11/08/19 11:59 10/28/19 05:21 Metolazone (Zaroxolyn) 2.5 mg DAILY GT 10/25/19 09:00 11/22/19 08:59 10/28/19 08:38 Minoxidil (Loniten) 2.5 mg Q12HR ORAL 10/26/19 21:00 01/08/20 13:59 10/28/19 08:38 Polyethylene Glycol (Miralax) 17 gm BEDTIME ORAL 10/11/19 21:00 10/31/19 20:59 10/27/19 21:26 Risperidone (RisperDAL) 2 mg BEDTIME ORAL 10/11/19 21:00 11/19/19 20:59 10/27/19 21:27 Sorbitol (sorbitoL) 30 ml EVERY 6 HOURS PRN GT Constipation 10/11/19 06:00 10/29/19 17:59 Vitamin B Complex/ Vit C/Folic Acid (Nephrovite) 1 tab DAILY ORAL 10/11/19 09:00 11/05/19 08:59 10/28/19 08:37 Assessment/Plan Assessment/Plan ASSESSMENT Acute on chronic hypoxemic respiratory failure ( trach dependent), requiring placement on vent ( now CPAP trials) Tracheostomy status, s/p change to cuffed trach Sepsis Pulmonary edema Pleural effusion -worsening left pl effusion s/p thoracentesis L pleural effusion 09/26 -900 ml Pneumonia with MDR Pseudomonas UTI CHF ? cardiorenal COPD Acute kidney injury and chronic kidney disease-requiring start of HD Hypertension Atrial fibrillation Moderate pulm HTN Moderate AR Dysphagia , feeding by G-tube Electrolyte abnormalities Anemia Toxic metabolic encephalopathy likely due to sepsis and ARF HTN PAF Fevers. leukocytosis -resolved PLAN OF CARE [place] on vent AC trach changed 8/4 pm from uncuffed to cuffed Lolaley#[address] chest w/out contrast: - Bilateral pleural effusions, right greater than left, with bilateral lower lobe consolidation or volume loss. -Ground-glass densities in the upper lobes bilaterally. This is not specific. -Tracheostomy. -Increased superior mediastinal density. Stability of adenopathy cannot be excluded. -Atherosclerotic change. -Gastrostomy. -Ascites. -Left renal stent with left hydronephrosis and renal atrophy. VQ scan -> low probability for PE worsening resp status was due to need for HD, now after HD started, resp status improving, down to PEEP 5 and AC 20 trach care , pulmonary toilet Mucomyst was prior dc given lots of thin secretions, continue Duoneb prn rapid COVID 19 NGT x3 off Fentanyl gtt since 10/09 FiO2 down to 40% last ABG stable 10/09 CXR 10/14 -increased right pleural fluid and parenchymal disease, doubt PNA likely fluid tolerating CPAP trials with PS 8 FiO2 40% 10/18-for 8 hrs continue CPAP trials as tolerated may continue in subacute upon discharge s/p thoracentesis L pleural effusion 09/26 am -> 900 ml fluid analysis noted, unlikely empyema given small # of WBC fup with fluid cx ( apparently never sent despite orders) cytology -> NGT, no malignant cells aspiration precautions venous Duplex BLE -> NGT DVT prophylaxis pulm toilet, BP regimen optimized as per nephro monitor volumes was on gentle IVF-> dc s/p prior diuretic-Lasix require initiation of HD continue further HD as per nephro with close monitoring of volumes, renal parameters and lytes -per nephro recs ABG pending for further assessment of acid base balance -ordered by nephro abx as per ID- recently pancx 10/14 due to fever and leukocytosis 10/14 BCX NGTD UCX 10/14 + Providencia, MDR, SCX+ Proteus ESBL, Pseudomonas MDR CXR 10/12 stable leuk 10/17, started on meropenem 10/17 -> as per ID recs, CXR 10/17 bilateral pleural effusions demonstrated. Mild interstitial and airspace congestion unchanged. CXR 10/23-> Slightly improved bilateral pleural effusions and retrocardiac consolidation, since 10/18/2019 no fevers abx changed to Gent 10/21-> for Pseudomonas MDR given prior fevers and mild leukocytosis, both resolved ECHO with pEF , moderate pulm HTN and moderate AR BP management with current regimen of BB, Cardizem and Hydralazine, remains in SR monitor HH with goal to keep Hgb >7, heme on board on EPO supportive care pain management wound care bowel regimen stable for dc from pulm standpoint dc plan in progress , challenging placement due to chronic resp failure ( need subacute) and need for HD case discussed and evaluated by supervising physician Bang Guardado MD 10/28/19 1056: Subjective Allergies: Coded Allergies: No Known Allergies (Unverified , 10/10/17) Assessment/Plan Assessment/Plan Patient seen and examined with DIRECTOR OPERATIONS and I agree with the above formulated assessment and plan. Yara Castro NP Oct 28, 2019 10:21 Bang Guardado MD Oct 28, 2019 10:56
[2019-10-28] MEDS ORDERED: Sorbitol Solution UD 30ml GT PRN (10:30)
--- NOTE | 2019-10-28 10:33 | Hematology/Onc Progress Note ---
Assessment/Plan Assessment/Plan Assessment and Recs # Leukocytosis, now with gram positive bacteremias well as pna noted --> historically --> PPM site (pocket) infection (redness and pain, bacteremia) and likely pocket abscess - no vegetation seen on ABBIE --> is s'p pm removal and also pocket infection is better --> per cards recs in re to tach/davis --> wbc 15-->19-->17-->15-->13->12-->13-->12>13-->18-->9-->7-->16-->17->9.4-->11 -->11.4-->11.3 --> ABX cefepime/levaquin--> vanc/angelo-> daptomycin-->Angelo --> ID recs are noted # Anemia of chronic disease due to underlying chronic medical issues, multifactorial --> Anemia workup has been reviewed, cw acd --> No evidence of hemolysis is noted, peripheral smear has been reviewed. --> Hgb goal >7. Transfuse prn. --> Epogen started --> Medications have been reviewed --> low threshold for gi evaluation in case has occult + --> hgb 7.1-->7.8-->8.9->9.2-->8.5-->9.7-->10-->8.8-->9.6-->8.7->8.6-->7.2->8.7- >9.1-->9.2-->9-->8.7-->9.3-->9.8-->10->10.3-->10.8->10.5->10.7 --> 1 unit prbc 09/27 # Thrombocytois is likely reactive process, is s/p infection --> plt trend 610k-->706k-->354->400 --> p smear reviewed # Acute hypoxic respiratory failure s/p intubation 11/23- ?ARDS --> on vent/trach --> cpap trial # Gram positive bacteremia- real bacteremia- 2ry to above and probable PNA --> per id care # JAVIER initially >2 --> on ivfs # Elevated d-dimer --> venous duplex and v/q scan neg --> negative results # Dysphagia s/p peg # Thoracic aortic dissection s/p repair early 2017 # Psychiatric history on ativan/haldol # [place] # Dvt ppx --> heparin sq The timing of this note does not necessarily reflect the time of the patient was seen. Greatly appreciate consultation. Subjective Constitutional: Denies: no symptoms, chills, fever, malaise, weakness, other HEENT: Denies: no symptoms, eye pain, blurred vision, tearing, double vision, ear pain, ear discharge, nose pain, nose congestion, throat pain, throat swelling, mouth pain, mouth swelling, other Cardiovascular: Denies: no symptoms, chest pain, edema, irregular heart rate, lightheadedness, palpitations, syncope, other Respiratory: Denies: no symptoms, cough, shortness of breath, SOB with excertion, SOB at rest, sputum, wheezing, other Gastrointestinal/Abdominal: Denies: no symptoms, abdomen distended, abdominal pain, black stools, tarry stools, blood in stool, constipated, diarrhea, difficulty swallowing, nausea, poor appetite, poor fluid intake, rectal bleeding , vomiting, other Genitourinary: Denies: no symptoms, burning, discharge, frequency, flank pain, hematuria, incontinence, pain, urgency, other Neurologic/Psychiatric: Denies: no symptoms, anxiety, depressed, emotional problems, headache, numbness, paresthesia, pre-existing deficit, seizure, tingling, tremors, weakness, other Endocrine: Denies: no symptoms, excessive sweating, flushing, intolerance to cold, intolerance to heat, increased hunger, increased thirst, increased urine, unexplained weight gain, unexplained weight loss, other Allergies: Coded Allergies: No Known Allergies (Unverified , 10/10/17) Subjective 09/16 on vent now, consulted in am pulm, on vent setting, labs noted, hep sq 09/17 meds noted, cbc noted, labs noted, no bleeding 09/18 is to undergo potential v/q scan given abg, labs noted, resless, on ativan, to get haldol today, roman rn 09/19 remains agitated, covering, with sacral wound seeping, likely cause of anemia, roman rn 09/26 restless, remains agitated, gtube ripped, eval with rn, and ifeoma consulted 09/27 remains on vent, agitated, seen by gi, hgb low, roman George to transfuse 1 unit prbc 09/28 meds noted, no bleeding, on vent, s/p blood tranfusion, cbc pending, roman rn 09/29 remains in the icu, roman rn in the am, agitated, on versed, fentanyl, restraints 09/30 in icu, trach to vent, on gtube feeds, fentanyl, agitated 10/01 in icu, roman Ayoub rn, no bleeding, sleeping, labs noted, hgb >9 10/02 sedated in icu, is on vent, roman rn, more alert and more conversive with face grimaces 10/03 labs have been reviewed, no bleeding, icu, meds reviewed, on fentanyl and versed, to consult psych 10/05 remains on fentanyl, also with restraints, no bleeding, cbc ordered 10/06 remains obtunded, though reactive when proded, labs pending from am 10/07 hypertensive, asleep, no bleeding, roman rn, no major night sweats\ 10/08 formula leaking from gtube site, no bleeding, with some minor residual 10/09 remains on gtube feeds, on lactulose, no major changes, confused but nods 10/10 labs reviewed, lactulose discontinued as having diarrhea, no bleeding 10/12 meds reviewed, no bleeding, heparin given, roman Starr rn in am, comfortable 10/13 labs are noted, no bleeding, cbc is ordered for today, somewhat agitated 10/14 has been complaining of pain and frowning, no bleeding, hgb reviewed 10/15 hgb 10.4, no bleeding, stool is hard, difficult to collect for c.diff 10/16 restless, agitated overnight, getting haldol prn, roman rn at bedside 10/17 labs are noted, no bleeding, meds reviewed, wbc 17k, on abx 10/19 labs are noted, no bleeding, meds noted, no major changes, with v/t, peg 10/20 on vent, with gtube and raymond, no bleeding, labs are noted 10/21 is trach to vent, with gtube in place, left ij hd in place, no bleeding 10/22 labs are noted, have been revierwed, no bleeding or chills, meds noted 10/23 labs reviewed, no bleeding, labs reviewed, no major changes overnight 10/24 no acute events, no bleeding, labs reviewed, remains on vent 10/26 has been turned, repositioned per clinical services consultant, comfortable, labs ordered 10/27 tolerating cpap well, no bleedig, meds noted, no night sweats, labs noted Objective Objective Current Medications Medications (Trade) Dose Ordered Sig/Penny Route PRN Reason Start Time Stop Time Status Last Admin Dose Admin Acetaminophen (Tylenol) 500 mg Q4H PRN GT Mild Pain (Pain Scale 1-3) 10/23/19 14:45 11/16/19 18:44 10/27/19 17:03 Ascorbic Acid (Vitamin C) 500 mg DAILY ORAL 10/11/19 09:00 11/05/19 08:59 10/28/19 08:38 Chlorhexidine Gluconate (Ling-Hex 2%) 1 applic DAILY@2000 TOPIC 10/11/19 20:00 12/22/19 19:59 10/27/19 21:32 Clonidine HCl (Catapres TTS-3) 1 patch QWEEK TDERMAL 10/14/19 12:00 01/12/20 11:59 10/21/19 12:26 Dextrose (Dextrose 50%) 25 ml Q30M PRN IV Hypoglycemia 10/11/19 04:30 01/03/20 18:29 Dextrose (Dextrose 50%) 50 ml Q30M PRN IV Hypoglycemia 10/11/19 04:30 01/03/20 18:29 Diltiazem HCl (Cardizem Tab) 30 mg Q8HR GT 10/26/19 14:00 11/09/19 11:59 10/27/19 14:07 Docusate Sodium (Colace) 100 mg Q8HR GT 10/14/19 14:01 11/13/19 14:00 10/28/19 05:21 Epoetin Gelacio (Epoetin Gelacio(ESRD on dialysis)) 8,000 unit MON-WED-FRI SUBQ 10/25/19 21:00 01/23/20 20:59 10/25/19 20:22 Gentamicin Protocol (Gentamicin pharmacy to dose) 1 ea DAILY PRN MISC Per rx protocol 10/22/19 13:45 10/8/20 13:44 Haloperidol (Haldol) 5 mg BIDPRN PRN GT Agitation 10/23/19 17:00 12/07/19 16:59 10/25/19 09:36 Heparin Sodium (Porcine) (Heparin 5000 units/ml) 5,000 units EVERY 12 HOURS SUBQ 10/11/19 09:00 10/30/19 08:59 10/28/19 08:41 Hydromorphone HCl (Dilaudid) 2 mg Q8HR GT 10/23/19 22:00 10/30/19 12:59 10/28/19 05:21 Insulin Aspart (NovoLOG) Q6HR SUBQ 10/11/19 06:00 01/03/20 20:59 Lisinopril (PriniviL) 20 mg BID GT 10/11/19 09:00 11/08/19 17:59 10/28/19 08:38 Metoclopramide HCl (Reglan) 5 mg EVERY 6 HOURS GT 10/11/19 06:00 11/08/19 11:59 10/28/19 05:21 Metolazone (Zaroxolyn) 2.5 mg DAILY GT 10/25/19 09:00 11/22/19 08:59 10/28/19 08:38 Minoxidil (Loniten) 2.5 mg Q12HR ORAL 10/26/19 21:00 01/08/20 13:59 10/28/19 08:38 Polyethylene Glycol (Miralax) 17 gm BEDTIME ORAL 10/11/19 21:00 10/31/19 20:59 10/27/19 21:26 Risperidone (RisperDAL) 2 mg BEDTIME ORAL 10/11/19 21:00 11/19/19 20:59 10/27/19 21:27 Sorbitol (sorbitoL) 30 ml Q6H PRN GT Constipation 10/28/19 10:30 11/27/19 10:29 Vitamin B Complex/ Vit C/Folic Acid (Nephrovite) 1 tab DAILY ORAL 10/11/19 09:00 11/05/19 08:59 10/28/19 08:37 Last 24 Hour Vital Signs Date Time Temp Pulse Resp B/P (MAP) Pulse Ox O2 Delivery O2 Flow Rate FiO2 10/28/19 09:54 98 10/28/19 08:38 150/69 10/28/19 08:38 150/69 10/28/19 08:00 Mechanical Ventilator Mechanical Ventilator Mechanical Ventilator 10/28/19 08:00 59 10/28/19 07:59 97.9 57 21 150/69 (96) 100 10/28/19 07:53 40 10/28/19 07:17 62 21 40 10/28/19 05:22 59 145/70 10/28/19 04:00 97.9 57 25 145/70 (95) 99 10/28/19 04:00 Mechanical Ventilator Mechanical Ventilator Mechanical Ventilator 10/28/19 04:00 40 10/28/19 03:40 55 10/28/19 03:06 58 23 40 10/28/19 00:00 Mechanical Ventilator Mechanical Ventilator Mechanical Ventilator 10/28/19 00:00 56 10/28/19 00:00 97.5 54 23 144/68 (93) 99 10/27/19 22:43 64 24 40 10/27/19 21:55 98.2 10/27/19 21:26 153/81 10/27/19 21:25 51 153/81 10/27/19 20:00 98.0 54 20 153/51 (85) 99 10/27/19 20:00 Mechanical Ventilator Mechanical Ventilator Mechanical Ventilator 10/27/19 20:00 40 10/27/19 19:32 54 10/27/19 19:12 55 21 40 10/27/19 17:03 158/64 10/27/19 16:00 Mechanical Ventilator Mechanical Ventilator Mechanical Ventilator 10/27/19 16:00 98.2 66 21 154/68 (96) 99 10/27/19 16:00 40 10/27/19 16:00 57 10/27/19 15:00 59 26 40 10/27/19 14:07 57 156/53 10/27/19 12:00 40 10/27/19 12:00 57 10/27/19 12:00 Mechanical Ventilator Mechanical Ventilator Mechanical Ventilator 10/27/19 11:30 98.0 57 20 156/53 (87) 99 10/27/19 10:40 55 24 40 10/27/19 09:00 98 10/27/19 08:27 151/64 10/27/19 08:26 151/64 10/27/19 08:00 40 10/27/19 08:00 Mechanical Ventilator Mechanical Ventilator Mechanical Ventilator 10/27/19 08:00 97.9 55 22 151/64 (93) 99 10/27/19 08:00 54 10/27/19 07:10 55 25 40 10/27/19 05:14 59 152/76 10/27/19 04:00 Mechanical Ventilator Mechanical Ventilator Mechanical Ventilator 10/27/19 04:00 99.0 57 24 155/66 (95) 97 10/27/19 04:00 40 10/27/19 04:00 62 10/27/19 02:55 58 23 40 10/27/19 00:00 Mechanical Ventilator Mechanical Ventilator Mechanical Ventilator 10/27/19 00:00 98.2 58 27 154/59 (90) 97 10/27/19 00:00 40 10/27/19 00:00 58 10/26/19 22:46 58 23 40 10/26/19 22:00 59 153/68 10/26/19 20:14 149/58 10/26/19 20:00 Mechanical Ventilator Mechanical Ventilator Mechanical Ventilator 10/26/19 20:00 97.9 62 30 149/58 (88) 95 10/26/19 20:00 40 10/26/19 20:00 58 10/26/19 18:34 62 31 40 10/26/19 17:20 127/55 10/26/19 16:41 65 10/26/19 16:00 Mechanical Ventilator Mechanical Ventilator Mechanical Ventilator 10/26/19 16:00 97.9 63 30 127/55 (79) 100 10/26/19 16:00 40 10/26/19 15:00 59 29 40 10/26/19 13:41 61 116/59 10/26/19 12:00 61 10/26/19 12:00 98.2 61 24 134/52 (79) 100 10/26/19 12:00 Mechanical Ventilator Mechanical Ventilator Mechanical Ventilator 10/26/19 12:00 40 10/26/19 11:00 61 28 40 Intake and Output 10/27/19 10/28/19 19:00 07:00 Intake Total 720 ml 640 ml Output Total 900 ml 600 ml Balance -180 ml 40 ml Intake Free Water 240 ml 200 ml Tube Feeding 480 ml 440 ml Output Urine Total 900 ml 600 ml # Bowel Movements 2 Labs Test 10/25/19 23:18 10/26/19 03:20 10/26/19 05:23 10/26/19 11:26 White Blood Count 8.3 K/UL (4.8-10.8) Red Blood Count 3.81 M/UL (4.20-5.40) Hemoglobin 11.5 G/DL (12.0-16.0) Hematocrit 35.1 % (37.0-47.0) Mean Corpuscular Volume 92 FL (80-99) Mean Corpuscular Hemoglobin 30.1 PG (27.0-31.0) Mean Corpuscular Hemoglobin Concent 32.7 G/DL (32.0-36.0) Red Cell Distribution Width 14.3 % (11.6-14.8) Platelet Count 392 K/UL (150-450) Mean Platelet Volume 4.7 FL (6.5-10.1) Neutrophils (%) (Auto) 64.7 % (45.0-75.0) Lymphocytes (%) (Auto) 22.4 % (20.0-45.0) Monocytes (%) (Auto) 5.9 % (1.0-10.0) Eosinophils (%) (Auto) 5.9 % (0.0-3.0) Basophils (%) (Auto) 1.0 % (0.0-2.0) Sodium Level 135 MMOL/L (136-145) Potassium Level 4.1 MMOL/L (3.5-5.1) Chloride Level 99 MMOL/L (98-107) Carbon Dioxide Level 26 MMOL/L (21-32) Anion Gap 10 mmol/L (5-15) Blood Urea Nitrogen 105 mg/dL (7-18) Creatinine 2.9 MG/DL (0.55-1.30) Estimat Glomerular Filtration Rate 17.4 mL/min (>60) Glucose Level 110 MG/DL (74-106) Calcium Level 8.9 MG/DL (8.5-10.1) Phosphorus Level 6.1 MG/DL (2.5-4.9) Magnesium Level 3.6 MG/DL (1.8-2.4) Total Bilirubin 0.3 MG/DL (0.2-1.0) Aspartate Amino Transf (AST/SGOT) 22 U/L (15-37) Alanine Aminotransferase (ALT/SGPT) 16 U/L (12-78) Alkaline Phosphatase 180 U/L (46-116) C-Reactive Protein, Quantitative 4.9 mg/dL (0.00-0.90) Pro-B-Type Natriuretic Peptide 95729 pg/mL (0-125) Total Protein 6.6 G/DL (6.4-8.2) Albumin 1.7 G/DL (3.4-5.0) Globulin 4.9 g/dL Albumin/Globulin Ratio 0.3 (1.0-2.7) Arterial Blood pH 7.461 (7.350-7.450) Arterial Blood Partial Pressure CO2 35.9 mmHg (35.0-45.0) Arterial Blood Partial Pressure O2 59.7 mmHg (75.0-100.0) Arterial Blood HCO3 25.0 mmol/L (22.0-26.0) Arterial Blood Oxygen Saturation 90.6 % (95-100) Arterial Blood Base Excess 1.4 (-2-2) Rojas Test Positive Test 10/26/19 12:46 10/26/19 17:07 10/26/19 23:43 10/27/19 04:48 POC Whole Blood Glucose 108 MG/DL (74-106) 90 MG/DL (74-106) Sodium Level 139 MMOL/L (136-145) Potassium Level 3.9 MMOL/L (3.5-5.1) Chloride Level 102 MMOL/L (98-107) Carbon Dioxide Level 26 MMOL/L (21-32) Anion Gap 11 mmol/L (5-15) Blood Urea Nitrogen 99 mg/dL (7-18) Creatinine 2.8 MG/DL (0.55-1.30) Estimat Glomerular Filtration Rate 18.1 mL/min (>60) Glucose Level 109 MG/DL (74-106) Calcium Level 8.6 MG/DL (8.5-10.1) Phosphorus Level 5.3 MG/DL (2.5-4.9) Magnesium Level 3.4 MG/DL (1.8-2.4) Total Bilirubin 0.3 MG/DL (0.2-1.0) Aspartate Amino Transf (AST/SGOT) 26 U/L (15-37) Alanine Aminotransferase (ALT/SGPT) 19 U/L (12-78) Alkaline Phosphatase 203 U/L (46-116) Total Protein 6.7 G/DL (6.4-8.2) Albumin 2.1 G/DL (3.4-5.0) Globulin 4.6 g/dL Albumin/Globulin Ratio 0.5 (1.0-2.7) Test 10/27/19 04:54 10/27/19 05:18 10/27/19 11:09 10/27/19 16:38 White Blood Count 8.6 K/UL (4.8-10.8) Red Blood Count 3.73 M/UL (4.20-5.40) Hemoglobin 11.3 G/DL (12.0-16.0) Hematocrit 33.8 % (37.0-47.0) Mean Corpuscular Volume 91 FL (80-99) Mean Corpuscular Hemoglobin 30.2 PG (27.0-31.0) Mean Corpuscular Hemoglobin Concent 33.4 G/DL (32.0-36.0) Red Cell Distribution Width 14.3 % (11.6-14.8) Platelet Count 400 K/UL (150-450) Mean Platelet Volume 4.5 FL (6.5-10.1) Neutrophils (%) (Auto) 65.0 % (45.0-75.0) Lymphocytes (%) (Auto) 23.6 % (20.0-45.0) Monocytes (%) (Auto) 6.1 % (1.0-10.0) Eosinophils (%) (Auto) 4.3 % (0.0-3.0) Basophils (%) (Auto) 0.9 % (0.0-2.0) Random Gentamicin Level 2.3 ug/mL POC Whole Blood Glucose 105 MG/DL (74-106) 124 MG/DL (74-106) Test 10/28/19 04:45 Sodium Level 136 MMOL/L (136-145) Potassium Level 4.2 MMOL/L (3.5-5.1) Chloride Level 99 MMOL/L (98-107) Carbon Dioxide Level 27 MMOL/L (21-32) Anion Gap 10 mmol/L (5-15) Blood Urea Nitrogen 102 mg/dL (7-18) Creatinine 2.6 MG/DL (0.55-1.30) Estimat Glomerular Filtration Rate 19.7 mL/min (>60) Glucose Level 105 MG/DL (74-106) Calcium Level 8.9 MG/DL (8.5-10.1) Phosphorus Level 5.6 MG/DL (2.5-4.9) Total Bilirubin 0.3 MG/DL (0.2-1.0) Aspartate Amino Transf (AST/SGOT) 23 U/L (15-37) Alanine Aminotransferase (ALT/SGPT) 21 U/L (12-78) Alkaline Phosphatase 225 U/L (46-116) Total Protein 6.7 G/DL (6.4-8.2) Albumin 2.1 G/DL (3.4-5.0) Globulin 4.6 g/dL Albumin/Globulin Ratio 0.5 (1.0-2.7) Random Gentamicin Level 1.7 ug/mL Height (Feet): 5 Height (Inches): 5.00 Weight (Pounds): 134 Objective Physical Exam: Vitals: reviewed General: NAD HEENT: nc, at Neck: supple ++tracn/vent Chest: clear breath sounds bilaterally Cardiovascular: RRR, no s3, s4 Abdomen: soft, nontender, nd +gtube Extremities: no cce, normal range of motion Neuro: alert Evan Muhammad MD Oct 28, 2019 10:33
[2019-10-28] MEDS: Acetaminophen 650mg/20.3ml GT PRN (10:52)
[2019-10-28 12:00] VITALS: BP 149/66
--- NOTE | 2019-10-28 13:27 | Nephrology Progress Note ---
Assessment/Plan Problem List: (1) JAVIER (acute kidney injury) (2) Renal failure (ARF), acute on chronic (3) Dehydration (4) Electrolyte imbalance (5) Anemia (6) Respiratory failure, acute and chronic (7) COPD with exacerbation Assessment Patient is presented with sepsis and pneumonia and UTI Patient has acute renal failure, possible underlying chronic kidney failure Severe anemia Electrolyte imbalances: Hyponatremia, hypo-kalemia Chronic respiratory failure, COPD exacerbation Plan October 27: Creatinine lower 2.6. Patient have not received any dialysis treatment since October 16. Will adjust blood pressure medication and monitor urine output. October 26: Lab reviewed. Serum creatinine a bit lower at 2.8. Urine output maintained over 500 cc in 24 hours. ABG results noted. No dialysis at this time. October 25: Labs reviewed. Serum creatinine 2.9. Calculated creatinine clearance 17 mL/min. Urine output well maintained on Zaroxolyn. Continue to monitor renal parameters. Check ABG today. Adjust blood pressure medication. Albumin bolus one-time infusion ordered. October 24: Labs reviewed. Serum creatinine slightly higher. Renal failure has an obvious prerenal picture. Up to the point that the urine output is maintained we can do for dialysis. Continue to monitor acid-base condition. October 23: Discharge canceled due to logistic reasons. Serum creatinine going up. Will adjust blood pressure medications. Down on Zaroxolyn dose. Check chemistry panel tomorrow. Continue to watch the heart rate closely. October 22: Patient last dialysis October 16. Serum creatinine is creeping up. Clinically the patient is stable. Urine output remains reasonable. Continue current management. Upon discharge patient needs to be followed chlorinator and arrange for as needed dialysis and ultrafiltration. Discussed with ERASMO Sen. October 21: Patient's last dialysis was October 16. Patient has been responding to Zaroxolyn, with decent urine output, and serum creatinine being stable. At this time will abort dialysis plan and continue per current management. Blood pressure medication adjusted. October 20: Patient appears to be responding to Zaroxolyn. Will repeat 10 mg Zaroxolyn via GT today. Continue monitor renal parameters. Potassium supplements given. Dialysis as needed. October 19: Patient responded to Zaroxolyn. Urine output increased. Will try 10 mg Zaroxolyn again today. Check renal parameters tomorrow. Dialysis as needed. October 18: Last dialysis October 16. Serum creatinine rising. Oliguria persists. Continue to monitor renal parameters and dialysis as needed. October 17: It appears that the patient received dialysis last night and the dialysis nurse changed her mind about delaying to today. Today's labs reviewed. Electrolyte abnormalities corrected. Continue per consultants. October 16: Late note entry due to system problem at the [facility] [place] [facility] today.Patient due for dialysis today. Dialysis nurse informed that due to few emergencies if she can be done tomorrow. No chemistry panel for today." We will order labs on dialysis tomorrow. October 15: Last dialysis October 13. Labs were reviewed. Urine output very low. Will dialyze and ultrafiltrate tomorrow. Per consultants. October 14: Dialyzed yesterday. Labs reviewed. Medication list reviewed. Continue per consultants. October 13: Patient seen on dialysis. Tolerating well. Will check labs tomorrow. October 12: Blood pressure stable. Labs reviewed. BUN rising. Remains oliguric. Dialysis tomorrow. October 11: Blood pressure is stable. Labs reviewed. Continue as is. Dialysis as needed October 10: Blood pressure medication adjusted. Will check lab tomorrow. Dialysis as needed. Urine output remains low. October 09: Lab reviewed. Remains oliguric. Will give trial of Zaroxolyn. Continue per consultants. Adjust blood pressure medication. Will add Zaroxolyn and increased dose of Cardizem and add clonidine patch for better BP control October 08: Labs reviewed. Patient oliguric. Blood pressure elevated, BP medication adjusted. Recheck lab tomorrow. Dialysis and ultrafiltration as needed. October 07: Labs reviewed. Patient was dialyzed yesterday. 3000 mL fluid was removed. Patient appears to need periodic (twice a week minimum) dialysis for ultrafiltration. Continue to monitor renal parameters. Continue per consultants. October 06: Labs reviewed. Discussed with pulmonary. Will attempt dialysis and ultrafiltration. Continue per consultants. October 05: Lab reviewed. Serum creatinine rising. Blood pressure stabilized. Will recheck lab tomorrow. Dialysis as needed. Will increase lisinopril to 10 mg twice a day. October 04: Lab reviewed. Blood pressure medication adjusted since the patient is hypotensive. Serum creatinine rising. Recheck labs tomorrow. Dialysis as needed. Discussed with RN. October 03: Lab reviewed. Zestril added to BP medication. 1 dose of Seroquel ordered for agitation. Continue to monitor renal parameters. Continue per consultants. October 02: Lab reviewed. Potassium supplement IV given. 3% saline 250 cc ordered. Responded well to Zaroxolyn yesterday. Will continue to monitor electrolytes and renal parameters. Will increase minoxidil to 2.5 mg every 6 hours. October 01: Labs reviewed. Potassium supplement given. Last dialysis September 29. Serum creatinine rising gradually. Urine output very low. Patient appears to continue to need dialysis at least twice a week. Blood pressure still running high I will switch the hydralazine to minoxidil. We will give 1 dose of Zaroxolyn 10 mg today. Will check renal parameters tomorrow. September 30: Patient dialyzed yesterday. 3 L removed. Labs reviewed. Potassium supplement given. Continue per consultants. It appears that the patient required dialysis 2-3 times a week. September 29: Lab reviewed. Chest x-ray result noted. Continues to have pulmonary congestion. Urine output low. Will attempt dialysis again today with ultrafiltration. September 28: Lab reviewed. ABG reviewed. Potassium supplement given. No dialysis at this point. Will eval patient status and renal parameters daily. September 27: Lab reviewed. Last dialysis September 25. Continue to monitor renal parameters. Hemodialysis as needed. September 26: Lab reviewed. Dialyzed yesterday. Potassium supplement given. Medication list reviewed. Will observe renal parameters and arrange for dialysis as needed. September 25: Lab reviewed. Currently on hemodialysis. Tolerating well. Stable from renal standpoint of view. Blood pressure medication adjusted by increasing hydralazine. September 24: Lab reviewed. ABG reviewed. Both lab and ABG much improved. Patient was dialyzed yesterday. We will attempt dialysis tomorrow again. Will adjust that blood pressure medication dosages. September 23: Lab reviewed. ABG reviewed. Patient acidotic. IV bicarb 1 dose is given. Patient has dialysis catheter. Will order dialysis for ultrafiltration and correction of acid-base. Discussed with ERASMO Mohr. September 22: Labs reviewed. Potassium high. Kayexalate and Reglan given. Will discuss with the consultants regarding initiation of dialysis. September 21: Patient is being sedated. Labs reviewed. Potassium supplement discontinued. GFR 20. Continue per current treatment plan. Dialysis and ultrafiltration is a consideration. September 20: Patient periodically agitated. Labs reviewed. Creatinine 2.4. Medication reviewed. Continue per consultants. Calculated creatinine clearance 21. May need isolated ultrafiltration on dialysis. Will discuss with PMD. Meanwhile hemoglobin is lower, defer transfusion to PMD. September 19: DC IV fluid. Zaroxolyn via GT tube. Potassium supplement. Attempt to diurese. Chest CT as bilateral pleural effusion. If diuresis unsuccessful, will consider dialysis and ultrafiltration. September 18: Potassium supplement IV given. Hemoglobin stable. Patient remains full code. Continue per consultants. Previously: Potassium supplement IV Slow IV hydration Epogen subcu Adjust blood pressure medication IV fluid, rate adjusted Norman catheter, intake and output Monitor renal parameters Avoid nephrotoxic's Antibiotics Per orders 2D echocardiogram Kidney ultrasound Subjective ROS Limited/Unobtainable: Yes Objective Objective Last 24 Hour Vital Signs Date Time Temp Pulse Resp B/P (MAP) Pulse Ox O2 Delivery O2 Flow Rate FiO2 10/28/19 11:42 150/69 10/28/19 11:02 58 23 40 10/28/19 09:54 98 10/28/19 08:38 150/69 10/28/19 08:38 150/69 10/28/19 08:00 Mechanical Ventilator Mechanical Ventilator Mechanical Ventilator 10/28/19 08:00 59 10/28/19 07:59 97.9 57 21 150/69 (96) 100 10/28/19 07:53 40 10/28/19 07:17 62 21 40 10/28/19 05:22 59 145/70 10/28/19 04:00 97.9 57 25 145/70 (95) 99 10/28/19 04:00 Mechanical Ventilator Mechanical Ventilator Mechanical Ventilator 10/28/19 04:00 40 10/28/19 03:40 55 10/28/19 03:06 58 23 40 10/28/19 00:00 Mechanical Ventilator Mechanical Ventilator Mechanical Ventilator 10/28/19 00:00 56 10/28/19 00:00 97.5 54 23 144/68 (93) 99 10/27/19 22:43 64 24 40 10/27/19 21:55 98.2 10/27/19 21:26 153/81 10/27/19 21:25 51 153/81 10/27/19 20:00 98.0 54 20 153/51 (85) 99 10/27/19 20:00 Mechanical Ventilator Mechanical Ventilator Mechanical Ventilator 10/27/19 20:00 40 10/27/19 19:32 54 10/27/19 19:12 55 21 40 10/27/19 17:03 158/64 10/27/19 16:00 Mechanical Ventilator Mechanical Ventilator Mechanical Ventilator 10/27/19 16:00 98.2 66 21 154/68 (96) 99 10/27/19 16:00 40 10/27/19 16:00 57 10/27/19 15:00 59 26 40 10/27/19 14:07 57 156/53 Intake and Output 10/27/19 10/28/19 19:00 07:00 Intake Total 720 ml 640 ml Output Total 900 ml 600 ml Balance -180 ml 40 ml Intake Free Water 240 ml 200 ml Tube Feeding 480 ml 440 ml Output Urine Total 900 ml 600 ml # Bowel Movements 2 Laboratory Tests 10/27/19 16:38: POC Whole Blood Glucose [Pending] 10/28/19 04:45: Sodium Level 136, Potassium Level 4.2, Chloride Level 99, Carbon Dioxide Level 27, Anion Gap 10, Blood Urea Nitrogen 102H, Creatinine 2.6H, Estimat Glomerular Filtration Rate 19.7, Glucose Level 105, Calcium Level 8.9, Phosphorus Level 5.6H, Total Bilirubin 0.3, Aspartate Amino Transf (AST/SGOT) 23, Alanine Aminotransferase (ALT/SGPT) 21, Alkaline Phosphatase 225H, Total Protein 6.7, Albumin 2.1L, Globulin 4.6, Albumin/Globulin Ratio 0.5L, Random Gentamicin Level 1.7 10/28/19 11:33: POC Whole Blood Glucose 98 Height (Feet): 5 Height (Inches): 5.00 Weight (Pounds): 134 General Appearance: no apparent distress EENT: other - On mechanical ventilator Cardiovascular: normal rate - Heart rate late 50s Respiratory/Chest: decreased breath sounds Abdomen: distended Objective No change Johnny Houston MD Oct 28, 2019 13:27
[2019-10-28] MEDS ORDERED: Minoxidil 2.5mg tab ORAL SCH (14:00)
[2019-10-28 16:00] VITALS: BP 142/65
--- NOTE | 2019-10-28 16:13 | Infectious Diseases Prog Note ---
Assessment/Plan 49yo F with: Fever, recurrent; SP Leukocytosis, recurrent- SP -10/14 Bcx NTD Acute hypoxic resp failure: Now on vent, worsening, FiO2 100% > 80% 09/27 > 60% >40% 10/08 >30% 10/09 >40% 10/14 Pneumonia, COVID19 neg x3 - MDR PsA pneumonia,s pr x 10/23 CXR: Slightly improved bilateral pleural effusions and retrocardiac consolidation, since 10/18/201910/14 CXR: Increased right pleural fluid and parenchymal disease, since previous exam of 10/09/2019. Stable pleural and parenchymal disease on the left sp cx ESBL P. mirabilis, MDR P.a. ( S only to Gent) 10/07 CXR: Bilateral infiltrates versus edema, left greater than right pleural effusions are again demonstrated, unchanged. There is slightly better inspiration currently. 09/29 CXR: Bilateral edema versus infiltrates appears slightly worse than on the prior study. There is probably some pleural fluid on the left. 09/26 S/P thoracentesis, 900cc removed, only 67 WBC in fluid analysis, unlikely empyema 09/26 CXR: Worsening R perihilar opacity 09/26 BCx Neg 09/24 CXR: Previously demonstrated right lateral basilar lucency is no longer evident, was presumably a skin fold artifact. Bilateral infiltrates and left pleural effusion are probably unchanged allowing for slight differences in technique. 09/22 Resp cx + MDR PsA (S-gent; I-colistin; R-levofloxacin, Zosyn, angelo) 09/22 BCx NTD 09/22 CXR: worsening BL pna 09/22 UA w/ persistent pyuria, now on HD, UCx +VRE, most likely colonizer as improving wo tx for this 09/19 V/Q scan, low probability of PE 09/18 Rapid COVID PCR neg 09/18 CT chest: Markedly suboptimal examination due to lack of IV contrast material. Bilateral pleural effusions, right greater than left, with bilateral lower lobe consolidation or volume loss. Ground glass densities in the upper lobes bilaterally. This is not specific. Tracheostomy. Increased superior mediastinal density. Stability of adenopathy cannot be excluded. Atherosclerotic change. Gastrostomy. Ascites. Left renal stent with left hydronephrosis and renal atrophy. 09/17 Chest US: Trace right and small left pleural effusions. No safe window identified for bedside thoracentesis. Note that the majority of the left pleural effusion is subpulmonic. 09/16 CXR: Worsening of right lung infiltrates and right effusion. V. duplex: NO DVT D-dimer elevated 09/15 Rapid COVID PCR neg 09/15 Sp cx ESBL P. mirablis 09/14 CXR: Bilateral airspace opacities, preferentially involving the right lung, consistent with multifocal infiltrate. Trace bilateral pleural effusions. No pneumothorax. Rapid COVID PCR neg Urine legionella neg 09/16 GPC bacteremia, real vs contaminant; does have hx of infected PPM- 09/14 Bcx 03/19 S. epidermis; 09/15, , Bcx Neg 2d echo: no vegetations seen UTI, recurrent 09/14 u/a wbc tnct, nit neg, leuk +3; ucx >100k MDR P. stuarti (S Ceftriaxone, Meropenem) 09/22 UA w/ ongoing pyuria, unchanged 10/07 u/a wbc tnct, nit neg, leuk ; ucx >100k VRE 10/14 u/a wbc tnct; ucx >100k ESBL P. stuarti (S ertapenem, aztreonam) Unstageable sacral ulceration JAVIER on CKD --> now on HD Renal US: Limited exam due to abdominal ascites and shadowing from bowel gas. CT recommended for more sensitive evaluation. Moderate right hydronephrosis. Increased renal parenchymal echogenicity suggesting intrinsic/ medical renal disease. Question indwelling left ureteral stent versus artifact. Bladder not visualized. 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 epi-11/2018, sp > 6weeks IV vancomycin 11/27 SP ABBIE: no evidence for vegetation on any of the valves 11/26/18 SP PPM removal: OR findings:The fibrous capsule enclosing the generator was then opened and there was a [id number] amount of yellowish fluid drainage. The generator was then removed.Atrial and ventricular leads were detached. The necrotic tissue of the pocket was then removed and the pocket was flushed with an antibiotic solution. Capsule, wound tissue and lead tip cx: Neg 2d echo: no vegetation seen US chest: 4.6 x 3.4 x 0.9 cm hypoechoic/anechoic area overlying left chest pacemaker power pack. This could represent either a discrete fluid collection or a focal area of very edematous tissue. Infected fluid pocket also possible. 11/18 Bcx 3/4 S. epi; 11/20 Bcx neg; 11/24 Bcx Neg; 11/27 Bcx Neg Hx of PNA 11/2019? sp cx PsA (arnett S), ABC (I Ceftriaxone; otherwise negative) Sp cx MRSA, ABC (I Ceftriaxone; otherwise S) PMH: Afib HTN Dysphagia sp GT Aortic dissection s/p repair 2017, S/p PPM Parkinson's Disease Schizophrenia Anxiety COPD Chronic resp failure s/p trach Hx of tracheal bleeding [place] Plan: Continue to monitor off abx 10/25 SP IV Gentamycin #5 10/21 SP Meropenem #5 10/14 SP Daptomycin #5 10/03 SP Zerbaxa #6, gent #7 for MDR PsA pna 09/29 SP vanco #15 for S.epi in BCx 09/27 SP angelo #13 09/16 SP Cefepime #3, Levaquin #3 Monitor CBC/CMP, temperatures trach/ peg care Aspiration precautions D/w RN Thank you for this consultation. Will continue to follow along with you. Subjective Allergies: Coded Allergies: No Known Allergies (Unverified , 10/10/17) afebrile no leukocytosis off abx discharge planning Objective Last 24 Hour Vital Signs Date Time Temp Pulse Resp B/P (MAP) Pulse Ox O2 Delivery O2 Flow Rate FiO2 10/28/19 15:43 60 23 40 10/28/19 13:31 149/66 10/28/19 13:29 62 149/66 10/28/19 12:00 Mechanical Ventilator Mechanical Ventilator Mechanical Ventilator 10/28/19 12:00 96.6 62 20 149/66 (93) 98 10/28/19 12:00 40 10/28/19 11:43 58 10/28/19 11:42 150/69 10/28/19 11:02 58 23 40 10/28/19 09:54 98 10/28/19 08:38 150/69 10/28/19 08:38 150/69 10/28/19 08:00 Mechanical Ventilator Mechanical Ventilator Mechanical Ventilator 10/28/19 08:00 59 10/28/19 07:59 97.9 57 21 150/69 (96) 100 10/28/19 07:53 40 10/28/19 07:17 62 21 40 10/28/19 05:22 59 145/70 10/28/19 04:00 97.9 57 25 145/70 (95) 99 10/28/19 04:00 Mechanical Ventilator Mechanical Ventilator Mechanical Ventilator 10/28/19 04:00 40 10/28/19 03:40 55 10/28/19 03:06 58 23 40 10/28/19 00:00 Mechanical Ventilator Mechanical Ventilator Mechanical Ventilator 10/28/19 00:00 56 10/28/19 00:00 97.5 54 23 144/68 (93) 99 10/27/19 22:43 64 24 40 10/27/19 21:55 98.2 10/27/19 21:26 153/81 10/27/19 21:25 51 153/81 10/27/19 20:00 98.0 54 20 153/51 (85) 99 10/27/19 20:00 Mechanical Ventilator Mechanical Ventilator Mechanical Ventilator 10/27/19 20:00 40 10/27/19 19:32 54 10/27/19 19:12 55 21 40 10/27/19 17:03 158/64 Height (Feet): 5 Height (Inches): 5.00 Weight (Pounds): 134 Gen: no distress Cardiovascular: RrR, S1 S2 normal Respiratory: decreased breath sounds Abdomen: soft, non-tender, present bowel sounds Extremities: no edema, no tenderness Laboratory Tests Test 10/27/19 16:38 10/28/19 04:45 10/28/19 11:33 10/28/19 15:59 POC Whole Blood Glucose Pending 98 MG/DL (74-106) 116 MG/DL (74-106) H Sodium Level 136 MMOL/L (136-145) Potassium Level 4.2 MMOL/L (3.5-5.1) Chloride Level 99 MMOL/L (98-107) Carbon Dioxide Level 27 MMOL/L (21-32) Anion Gap 10 mmol/L (5-15) Blood Urea Nitrogen 102 mg/dL (7-18) H Creatinine 2.6 MG/DL (0.55-1.30) H Estimat Glomerular Filtration Rate 19.7 mL/min (>60) Glucose Level 105 MG/DL (74-106) Calcium Level 8.9 MG/DL (8.5-10.1) Phosphorus Level 5.6 MG/DL (2.5-4.9) H Total Bilirubin 0.3 MG/DL (0.2-1.0) Aspartate Amino Transf (AST/SGOT) 23 U/L (15-37) Alanine Aminotransferase (ALT/SGPT) 21 U/L (12-78) Alkaline Phosphatase 225 U/L (46-116) H Total Protein 6.7 G/DL (6.4-8.2) Albumin 2.1 G/DL (3.4-5.0) L Globulin 4.6 g/dL Albumin/Globulin Ratio 0.5 (1.0-2.7) L Random Gentamicin Level 1.7 ug/mL Current Medications Medications (Trade) Dose Ordered Sig/Penny Route PRN Reason Start Time Stop Time Status Last Admin Dose Admin Acetaminophen (Tylenol) 500 mg Q4H PRN GT Mild Pain (Pain Scale 1-3) 10/23/19 14:45 11/16/19 18:44 10/28/19 10:52 Ascorbic Acid (Vitamin C) 500 mg DAILY ORAL 10/11/19 09:00 11/05/19 08:59 10/28/19 08:38 Chlorhexidine Gluconate (Ling-Hex 2%) 1 applic DAILY@1999 TOPIC 10/11/19 20:00 12/22/19 19:59 10/27/19 21:32 Clonidine HCl (Catapres TTS-3) 1 patch QWEEK TDERMAL 10/14/19 12:00 01/12/20 11:59 10/28/19 11:42 Dextrose (Dextrose 50%) 25 ml Q30M PRN IV Hypoglycemia 10/11/19 04:30 01/03/20 18:29 Dextrose (Dextrose 50%) 50 ml Q30M PRN IV Hypoglycemia 10/11/19 04:30 01/03/20 18:29 Diltiazem HCl (Cardizem Tab) 30 mg Q8HR GT 10/26/19 14:00 11/09/19 11:59 10/28/19 13:29 Docusate Sodium (Colace) 100 mg Q8HR GT 10/14/19 14:01 11/13/19 14:00 10/28/19 05:21 Epoetin Gelacio (Epoetin Gelacio(ESRD on dialysis)) 8,000 unit MON-MON-MON SUBQ 10/25/19 21:00 01/23/20 20:59 10/25/19 20:22 Haloperidol (Haldol) 5 mg BIDPRN PRN GT Agitation 10/23/19 17:00 12/07/19 16:59 10/25/19 09:36 Heparin Sodium (Porcine) (Heparin 5000 units/ml) 5,000 units EVERY 12 HOURS SUBQ 10/11/19 09:00 10/30/19 08:59 10/28/19 08:41 Hydromorphone HCl (Dilaudid) 2 mg Q8HR GT 10/23/19 22:00 10/30/19 12:59 10/28/19 13:29 Insulin Aspart (NovoLOG) Q6HR SUBQ 10/11/19 06:00 01/03/20 20:59 Lisinopril (PriniviL) 20 mg BID GT 10/11/19 09:00 11/08/19 17:59 10/28/19 08:38 Metoclopramide HCl (Reglan) 5 mg EVERY 6 HOURS GT 10/11/19 06:00 11/08/19 11:59 10/28/19 11:40 Metolazone (Zaroxolyn) 2.5 mg DAILY GT 10/25/19 09:00 11/22/19 08:59 10/28/19 08:38 Minoxidil (Loniten) 2.5 mg Q8HR ORAL 10/28/19 14:00 01/08/20 13:59 10/28/19 13:31 Polyethylene Glycol (Miralax) 17 gm BEDTIME ORAL 10/11/19 21:00 10/31/19 20:59 10/27/19 21:26 Risperidone (RisperDAL) 2 mg BEDTIME ORAL 10/11/19 21:00 11/19/19 20:59 10/27/19 21:27 Sorbitol (sorbitoL) 30 ml Q6H PRN GT Constipation 10/28/19 10:30 11/27/19 10:29 Vitamin B Complex/ Vit C/Folic Acid (Nephrovite) 1 tab DAILY ORAL 10/11/19 09:00 11/05/19 08:59 10/28/19 08:37 Doreen Nino M.D. Oct 28, 2019 16:13
--- NOTE | 2019-10-28 16:40 | Surgery Progress Note ---
Surgery Progress Note Subjective Additional Comments no acute events labs noted exam unchanged Objective Last 24 Hour Vital Signs Date Time Temp Pulse Resp B/P (MAP) Pulse Ox O2 Delivery O2 Flow Rate FiO2 10/28/19 16:00 40 10/28/19 16:00 Mechanical Ventilator Mechanical Ventilator Mechanical Ventilator 10/28/19 15:43 60 23 40 10/28/19 13:31 149/66 10/28/19 13:29 62 149/66 10/28/19 12:00 Mechanical Ventilator Mechanical Ventilator Mechanical Ventilator 10/28/19 12:00 96.6 62 20 149/66 (93) 98 10/28/19 12:00 40 10/28/19 11:43 58 10/28/19 11:42 150/69 10/28/19 11:02 58 23 40 10/28/19 09:54 98 10/28/19 08:38 150/69 10/28/19 08:38 150/69 10/28/19 08:00 Mechanical Ventilator Mechanical Ventilator Mechanical Ventilator 10/28/19 08:00 59 10/28/19 07:59 97.9 57 21 150/69 (96) 100 10/28/19 07:53 40 10/28/19 07:17 62 21 40 10/28/19 05:22 59 145/70 10/28/19 04:00 97.9 57 25 145/70 (95) 99 10/28/19 04:00 Mechanical Ventilator Mechanical Ventilator Mechanical Ventilator 10/28/19 04:00 40 10/28/19 03:40 55 10/28/19 03:06 58 23 40 10/28/19 00:00 Mechanical Ventilator Mechanical Ventilator Mechanical Ventilator 10/28/19 00:00 56 10/28/19 00:00 97.5 54 23 144/68 (93) 99 10/27/19 22:43 64 24 40 10/27/19 21:55 98.2 10/27/19 21:26 153/81 10/27/19 21:25 51 153/81 10/27/19 20:00 98.0 54 20 153/51 (85) 99 10/27/19 20:00 Mechanical Ventilator Mechanical Ventilator Mechanical Ventilator 10/27/19 20:00 40 10/27/19 19:32 54 10/27/19 19:12 55 21 40 10/27/19 17:03 158/64 I&O Intake and Output 10/27/19 10/28/19 19:00 07:00 Intake Total 720 ml 640 ml Output Total 900 ml 600 ml Balance -180 ml 40 ml Intake Free Water 240 ml 200 ml Tube Feeding 480 ml 440 ml Output Urine Total 900 ml 600 ml # Bowel Movements 2 Dressing: other Wound: other Cardiovascular: RSR Respiratory: decreased breath sounds Abdomen: soft, non-tender, present bowel sounds Extremities: no edema, no tenderness, no cyanosis Laboratory Tests Test 10/28/19 04:45 10/28/19 11:33 10/28/19 15:59 Sodium Level 136 MMOL/L (136-145) Potassium Level 4.2 MMOL/L (3.5-5.1) Chloride Level 99 MMOL/L (98-107) Carbon Dioxide Level 27 MMOL/L (21-32) Anion Gap 10 mmol/L (5-15) Blood Urea Nitrogen 102 mg/dL (7-18) H Creatinine 2.6 MG/DL (0.55-1.30) H Estimat Glomerular Filtration Rate 19.7 mL/min (>60) Glucose Level 105 MG/DL (74-106) Calcium Level 8.9 MG/DL (8.5-10.1) Phosphorus Level 5.6 MG/DL (2.5-4.9) H Total Bilirubin 0.3 MG/DL (0.2-1.0) Aspartate Amino Transf (AST/SGOT) 23 U/L (15-37) Alanine Aminotransferase (ALT/SGPT) 21 U/L (12-78) Alkaline Phosphatase 225 U/L (46-116) H Total Protein 6.7 G/DL (6.4-8.2) Albumin 2.1 G/DL (3.4-5.0) L Globulin 4.6 g/dL Albumin/Globulin Ratio 0.5 (1.0-2.7) L Random Gentamicin Level 1.7 ug/mL POC Whole Blood Glucose 98 MG/DL (74-106) 116 MG/DL (74-106) H Plan Problems: (1) Anemia (2) Proteinuria (3) UTI (urinary tract infection) (4) ARF (acute renal failure) (5) ACS (acute coronary syndrome) (6) Respiratory failure, acute and chronic (7) HCAP (healthcare-associated pneumonia) (8) Abrasion of lip, initial encounter (9) COPD with exacerbation (10) Hypokalemia (11) Sepsis Assessment & Plan: Leukocytosis, anemia, abnormal labs. Renal insufficiency potentially dehydrated Abnormal LFTs alk phos elevated Urine noted significant bacteria likely UTI etiology Wound stable still requiring local care IV antibiotics per infectious disease Discussed with turning and beading machine operator Dr. Berkowitz air mattress turn q2h nutritional tf will follow with recs thank you CT noted pending VQ scan - noted poor study low prob PE work respiratory increasing needs sedation weaning vent settings 80% peep 10 now comfortable Hd line in receiving HD plan for left thora 09/26 cont weaning vent as tolerated improving labs improved placement d/c planning (12) Chronic respiratory failure (13) Ascites (14) Bacteremia (15) Hypernatremia (16) Pleural effusion (17) Pacemaker (18) Aortic dissection, thoracic (19) Tracheostomy in place Assessment & Plan: trach stable no bleeding currently likely tongue etiology of mild oozing currently hemostatic without trauma (20) Feeding by G-tube Assessment & Plan: okay to resume tube feeds via g tube patent and functional dressings okay DAILY ESTIMATED NEEDS: Needs based on Pulmonary, wound 49kg 30-35 kcals/kg 2840-2749 total kcals 1.25-2 g protein/kg 61-98 g total protein Fluid per MD NUTRITION DIAGNOSIS: * Swallowing difficulty R/T dysphagia, respiratory status as evidenced by vent dep via T-collar, GT Dep. (CURRENT TF: Nepro @45ml/hr x 24 hrs) ENTERAL NUTRITION RECOMMENDATIONS: Nepro @ 40ml/hr x 24 hrs to provide 960ml, 1728kcal, 78g prot, 698ml free water * Rec LOWER current rate to 40ml/hr for 24 hrs run. * Water flush of 100ml q 6 hrs per orders * HOB over 30 degrees ADDITIONAL RECOMMENDATIONS: * Per SNF: HT=63", UF=772zot -> rec calibrated bedscale wt * Pt on Nepro SHRUB GROWER, possible h/o electrolyte imbalance -> monitor lytes closely (K low at this time) * SPAR MACHINE OPERATOR eval for oral grat if appropriate * F/up w/ WC eval-> add FRANKLIN in 4oz H20 BID via GT (21) JAVIER (acute kidney injury) (22) Elevated alkaline phosphatase level Assessment & Plan: noted on labs trend US ordered will follow with recs thank you (23) Acute encephalopathy (24) GT CLOGGED (25) Sacral decubitus ulcer, stage IV Assessment & Plan: Pt presented on admission with Full thickness stage 4 Sacral Pressure injury which extends into R gluteal cheek. Base of wound is granular with bone exposure at base of sacrococcygeal.(L)10.5cm x (W06.5cm x (D) 2.8cm , undermining 11-3 by 3.6cm @12 o'clock. small amt serosanguineous exudate noted . Hillman epithelial along edges bordered by darker skin tone without erythema. Resolving Pressure injury L ischium. Base of wound is 95% pink epithelial ,5% noni at center base of wound. No exudate noted. Both heels are boggy with non-Blanching erythema. Tx.plan: Cleanse Sacral wound with Saline. Loosely pack with Hydrogel impregnated Kerlix. Apply Moisture Barrier Periwound. Cover with Optifoam drsg Daily and prn. Apply Moisture Barrier paste to L Ischium. Cover with Optifoam drsg. Changee very 3 days and prn. Apply Cavilon Skin Barrier to both heels. Cover each heel with Optifoam drsgs. Change every 7 days and prn. Reposition at least every 2hours or as tolerated. Off-load heels with pillow. APM/MAXWELL Mattress overlay. Sacral wound resolving. Wound is smaller in size with less depth and undermining (L)8.5cm x (W)5cm x (D)1.3cm, undermining clockwise 11-3 by 2.1cm @ 12o'clock. Base of wound is pink and moist, small area of bone exposure at base. Small amt. seropurulent exudate noted. No odor noted. Periwound without evidence of further skin breakdown noted. Wound Tx. are effective and continued as ordered. Al wound prevention protocols continued as care-planned. Tx.Plan:Cleanse sacral wound with Saline. Loosely pack with Hydrogel impregnated kerlix. Apply Moisture Barrier Paste periwound. Cover with Optifoam drsg Daily and prn. Apply Cavilon Skin Barrier to both heels and malleoli. Cover eachsite with Optifoam drsgs. Change every 7 days and prn. Reposition at least every 2hours or as tolerated. Off-load heels with pillow. APM/Maxwell Mattress overlay. Lane Saavedra Oct 28, 2019 16:40
[2019-10-28] MEDS ORDERED: NS 275ml ONE ×4 (18:45→21:59)
[2019-10-28 20:00] VITALS: BP 155/71
[2019-10-28] MEDS: Dyna-Hex 2% Top Sol 2oz TOPIC SCH (20:12)
[2019-10-28] MEDS: Miralax 17gm pkt ORAL SCH (20:12)
--- NOTE | 2019-10-28 21:17 | General Progress Note ---
Assessment/Plan Status: stable, other - Mood has improved he is able to smile there is no continuous tearing overall she looks better today energy looking the last several days continue with the same management Subjective Constitutional: Reports: no symptoms HEENT: Reports: no symptoms Cardiovascular: Reports: no symptoms Respiratory: Reports: no symptoms Gastrointestinal/Abdominal: Reports: no symptoms Genitourinary: Reports: no symptoms Neurologic/Psychiatric: Reports: no symptoms Allergies: Coded Allergies: No Known Allergies (Unverified , 10/10/17) Objective Last 24 Hour Vital Signs Date Time Temp Pulse Resp B/P (MAP) Pulse Ox O2 Delivery O2 Flow Rate FiO2 10/28/19 20:42 102 24 40 10/28/19 20:00 40 10/28/19 20:00 98.9 75 18 155/71 (99) 100 10/28/19 20:00 Mechanical Ventilator Mechanical Ventilator Mechanical Ventilator 10/28/19 19:48 66 28 40 10/28/19 17:29 142/65 10/28/19 16:00 59 10/28/19 16:00 40 10/28/19 16:00 97.7 62 18 142/65 (90) 99 10/28/19 16:00 Mechanical Ventilator Mechanical Ventilator Mechanical Ventilator 10/28/19 15:43 60 23 40 10/28/19 13:31 149/66 10/28/19 13:29 62 149/66 10/28/19 12:00 Mechanical Ventilator Mechanical Ventilator Mechanical Ventilator 10/28/19 12:00 96.6 62 20 149/66 (93) 98 10/28/19 12:00 40 10/28/19 11:43 58 10/28/19 11:42 150/69 10/28/19 11:02 58 23 40 10/28/19 09:54 98 10/28/19 08:38 150/69 10/28/19 08:38 150/69 10/28/19 08:00 Mechanical Ventilator Mechanical Ventilator Mechanical Ventilator 10/28/19 08:00 59 10/28/19 07:59 97.9 57 21 150/69 (96) 100 10/28/19 07:53 40 10/28/19 07:17 62 21 40 10/28/19 05:22 59 145/70 10/28/19 04:00 97.9 57 25 145/70 (95) 99 10/28/19 04:00 Mechanical Ventilator Mechanical Ventilator Mechanical Ventilator 10/28/19 04:00 40 10/28/19 03:40 55 10/28/19 03:06 58 23 40 10/28/19 00:00 Mechanical Ventilator Mechanical Ventilator Mechanical Ventilator 10/28/19 00:00 56 10/28/19 00:00 97.5 54 23 144/68 (93) 99 10/27/19 22:43 64 24 40 10/27/19 21:55 98.2 10/27/19 21:26 153/81 10/27/19 21:25 51 153/81 Intake and Output 10/27/19 10/28/19 19:00 07:00 Intake Total 720 ml 640 ml Output Total 900 ml 600 ml Balance -180 ml 40 ml Intake Free Water 240 ml 200 ml Tube Feeding 480 ml 440 ml Output Urine Total 900 ml 600 ml # Bowel Movements 2 Laboratory Tests 10/28/19 04:45: Sodium Level 136, Potassium Level 4.2, Chloride Level 99, Carbon Dioxide Level 27, Anion Gap 10, Blood Urea Nitrogen 102H, Creatinine 2.6H, Estimat Glomerular Filtration Rate 19.7, Glucose Level 105, Calcium Level 8.9, Phosphorus Level 5.6H, Total Bilirubin 0.3, Aspartate Amino Transf (AST/SGOT) 23, Alanine Aminotransferase (ALT/SGPT) 21, Alkaline Phosphatase 225H, Total Protein 6.7, Albumin 2.1L, Globulin 4.6, Albumin/Globulin Ratio 0.5L, Random Gentamicin Level 1.7 10/28/19 11:33: POC Whole Blood Glucose 98 10/28/19 15:59: POC Whole Blood Glucose 116H Height (Feet): 5 Height (Inches): 5.00 Weight (Pounds): 134 General Appearance: no apparent distress, alert EENT: normal ENT inspection Neck: normal alignment, supple Cardiovascular: normal rate, regular rhythm, no gallop/murmur, no JVD Respiratory/Chest: lungs clear, normal breath sounds, no respiratory distress Abdomen: normal bowel sounds, non tender, soft, no organomegaly, no mass Extremities: non-tender Neurologic: alert, oriented x 3, responsive, normal mood/affect Lucas Dong MD Oct 28, 2019 21:17
[2019-10-28] MEDS ORDERED: NS Irrig 1000ml ONE (21:59)
[2019-10-28] MEDS ORDERED: Tubing IV Secondary IV ONE ×2 (21:59)
--- NOTE | 2019-10-28 23:04 | Emergency Room Report ---
History of Present Illness General Chief Complaint: Chest Pain Source: Patient, PMD Present Illness Allergies: Coded 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-19 Testing performed DIRECTOR OF MATH: Yes COVID-19 Screening: Negative COVID-19 COVID-19 Testing Source: earlier in August from SNF Patient History Now: No Nursing Documentation-PMH Past Medical History: No History, Except For Hx Cardiac Problems: Yes Hx Hypertension: Yes Hx Pacemaker: Yes - Left upper chest Hx Cancer: No Hx Gastrointestinal Problems: No Hx Neurological Problems: Yes Hx Cerebrovascular Accident: No Hx Transient Ischemic Attacks: No Hx Dementia: No Hx Alzheimer's Disease: No Hx Parkinson's Disease: Yes Hx Meningitis: No Hx Encephalitis: No Hx Dysphasia: Yes Physical Exam Vital Signs Date Time Temp Pulse Resp B/P (MAP) Pulse Ox O2 Delivery O2 Flow Rate FiO2 10/24/19 07:01 59 20 40 10/24/19 08:00 98.2 128/58 (81) 100 10/24/19 08:00 Mechanical Ventilator Mechanical Ventilator Mechanical Ventilator Medical Decision Making Diagnostic Impression: Primary Impression: Sepsis Qualified Codes: A41.9 - Sepsis, unspecified organism; R65.20 - Severe sepsis without septic shock; N17.9 - Acute kidney failure, unspecified Additional Impressions: HCAP (healthcare-associated pneumonia) ARF (acute renal failure) Anemia ACS (acute coronary syndrome) Proteinuria UTI (urinary tract infection) Respiratory failure, acute and chronic Abrasion of lip, initial encounter COPD with exacerbation Hypokalemia ER Course Patient with temporary dialysis access. I was contacted by Dr. Saavedra to remove access. Sutures were removed and direct pressure held for 5 minutes. No hematoma. Patient tolerated well. Last Vital Signs Date Time Temp Pulse Resp B/P (MAP) Pulse Ox O2 Delivery O2 Flow Rate FiO2 10/28/19 20:42 102 24 40 10/28/19 20:00 98.9 155/71 (99) 100 10/28/19 20:00 Mechanical Ventilator Mechanical Ventilator Mechanical Ventilator Disposition: ADMITTED INPATIENT Condition: Serious Referrals: Lucas Dong MD (PCP) Patient Instructions: Smoking Cessation, Tips for Success, [id number], Community-Acquired Pneumonia, Adult, [id number] Torito Park MD Oct 28, 2019:04
--- NOTE | 2019-10-30 19:08 | Cardiology Report ---
APPROVED REPORT EKG Measurement Heart [id number] <Conclusion> Normal sinus rhythm Possible Left atrial enlargement Rightward axis Anterior infarct, age undetermined Abnormal ECG
--- NOTE | 2019-10-30 19:12 | Cardiology Report ---
APPROVED REPORT EXAM: Two-dimensional and M-mode echocardiogram with Doppler and color Doppler. INDICATION Congestive Heart Failure M-Mode DIMENSIONS IVSd1.7 (0.7-1.1cm)Left Atrium (MM)4.3 (1.6-4.0cm) LVDd4.7 (3.5-5.6cm)Aortic Root3.9 (2.0-3.7cm) PWd1.7 (0.7-1.1cm)Aortic Cusp Exc.1.8 (1.5-2.0cm) IVSs2.1 cmEPSS0.5 (>1.0cm) LVDs3.1 (2.5-4.0cm) PWs2.1 cm <Conclusion> Normal left ventricular chamber size, systolic function and wall motion. Left ventricular ejection fraction estimated to be 60-65 %. Mild left ventricular hypertrophy. No evidence of pericardial effusion. Moderate left atrial enlargement. Mild right atrial enlargement. Right ventricular chamber size is within normal limits. Focal aortic valve sclerosis with adequate cusp excursion. Thickened mitral valve leaflets with normal excursion. Mitral annulus and aortic root calcification. Normal pulmonic valve structure. Normal tricuspid valve structure. IVC dilated at 2.3 cm with slight physiologic collapse suggestive of increased RA pressure. A color flow and spectral Doppler study was performed and revealed: Moderate aortic regurgitation. Mild mitral regurgitation. Mitral inflow indicate normal left ventricular diastolic function. Mild to moderate tricuspid regurgitation. Tricuspid systolic velocities suggests peak right ventricular systolic pressure of 56 mmHg, suggestive of moderate pulmonary hypertension. Mild pulmonic regurgitation present.
--- NOTE | 2019-10-30 19:17 | Diagnostic Imaging Report ---
Addendum: The technique should include the following- Sonography reveals patent and compressible left internal jugular vein The comparison should read as follows- COMPARISON: Completion radiograph compared to 9 hours earlier --
[2019-10-30] MEDS ORDERED: Epoetin Alfa-EPBX(ESRD on dialysis)4000 units/ml vial SUBQ SCH (21:00)
--- NOTE | 2019-11-01 11:02 | Discharge Summary ---
Discharge Summary Discharge Summary _ DATE OF ADMISSION: 09/15/2019 DATE OF DISCHARGE: 10/28/2019 DISCHARGED BY: Dr. Mccarty REASON FOR ADMISSION: 49 years old female with past medical history of chronic respiratory failure with tracheostomy status, COPD, schizophrenia, chronic kidney disease stage V, resident of half-way facility, was brought for evaluation due to shortness of breath and chest pain. Upon evaluation WBC 12.4, hemoglobin 7.2, hematocrit 20.1. BUN 188, creatinine 2.9. Troponin negative. EKG revealed sinus rhythm, no acute ischemic changes. Rapid COVID-19 was negative. Chest x-ray revealed bilateral airspace opacity, preferentially involving the right lung , consistent with multifocal infiltrates. Cardiomegaly. Trace bilateral pleural effusion. No pneumothorax. Urinalysis revealed +3 protein, +3 leukocyte esterase , hematuria, pyuria and few bacteria. Patient pancultured , started on broad-spectrum antibiotic . Patient started on supplemental oxygen via trach collar and admitted to [facility] for further management. CONSULTANTS: pulmonary Dr. Martinez/Dr Guardado ID specialist Dr. Nino GI specialist Dr. Mccauley director state pharmacy Dr. Houston mining analyst/oncologist Dr. Muhammad surgery Dr. Saavedra psychiatrist [facility]: Patient admitted to [facility]. Supplemental oxygen via trach collar provided . Pulmonary toilet provided . Patient started on empiric antibiotic . Counts were closely monitored . DVT and GI prophylaxis provided. Renal parameters and electrolytes were closely monitored. On 09/16 patient was found to be very short of breath and subsequently was transferred to ICU . Patient was connected to ventilator. Ventilator support and pulmonary toilet provided. Chest x-ray revealed pulmonary edema . Patient was followed-up with [facility] . Volumes were clsoely monitored, Patient received spot diuresis . Patient undergone tracheostomy change from uncuffed to cuffed Shiley #7 XLT. Venous duplex bilateral lower extremity revealed no evidence of acute DVT. VQ scan revealed low probability of PE. CT of the chest revealed bilateral pleural effusion with right greater than left , as well as the bilateral lower lobe consolidation. Ground glass density in the upper lobes bilaterally noted. Tracheostomy care provided. Pulmonary toilet provided . Rapid COVID-19 x3 was negative. Ventilator settings titrated . Patient required sedation and was on fentanyl drip. Patient undergone thoracentesis of left pleural effusion on , which will yielded 900 mL of fluid. Fluid online analysis was done, unlikely empyema given small number of WBC. Cytology was negative for malignant cells. Fluid culture was never sent as ordered. Chest x-ray showed worsening pleural effusion . Patient subsequently required initiation of hemodialysis. Hemodialysis provided as per director state pharmacy recommendation Volumes and cardiorenal parameters were closely monitored, electrolytes corrected as needed. Echocardiogram revealed preserved ejection fraction with evidence of moderate pulmonary hypertension and moderate aortic regurgitation. Antibiotic provided as per ID recommendation Urine culture revealed growth of MDR Providencia stuartii. Sputum culture grew Proteus ESBL and Pseudomonas MDR. Patient completed course of antibiotic while in the hospital. Fever and leukocytosis resolved. Aspiration precautions maintained. G-tube feeding continued. GI prophylaxis provided . Blood pressure was closely monitored and managed with beta-flori , Cardizem and hydralazine. Patient remained in sinus rhythm. a As patient clinically stabilized and transferred from ICU back to [facility] , patient started on CPAP trials. Patient was able to tolerate CPAP trials for 8 hours while in the hospital. Continue CPAP trials at the facility , as patient prior was not ventilator dependent . Counts were closely monitored. No evidence of hemolysis. Hemoglobin and hematocrit were closely monitored with goal to keep hemoglobin above 7. While in the hospital patient undergone transfusion of total of 3 units of packed red blood cells. Prior to discharge hemoglobin 11.3 ,hematocrit 33.8. Patient was on Epogen. Patient presented with sacral decubitus ulcer stage IV . Wound care provided as per surgeon recommendation. Continue wound care at the facility... Psychiatric medication regimen optimized as per psychiatrist. Reality orientation and supportive therapy provided. Placement was challenging , given that patient required subacute facility and outpatient hemodialysis . Eventually placement was found and secured , and patient was transferred for further management. FINAL DIAGNOSES: Acute on chronic hypoxemic respiratory failure/trach dependent requiring placement on ventilator Tracheostomy status, status post change to cuffed trach Sepsis Pneumonia with MDR Pseudomonas UTI Pulmonary edema Pleural effusion Status post thoracentesis left pleural effusion 09/26 Possible CHF , cardiorenal Acute kidney injury on chronic kidney disease stage V , requiring initiation of hemodialysis Paroxysmal atrial fibrillation Hypertension Moderate pulmonary hypertension Moderate aortic regurgitation Dysphagia ,feeding by G-tube Electrolyte abnormality Dehydration Anemia of chronic disease Toxic metabolic encephalopathy, likely due to sepsis and acute renal failure Sacral decubitus ulcer stage IV , present on admission DISCHARGE MEDICATIONS: See Medication Reconciliation list. DISCHARGE INSTRUCTIONS: Patient was discharged to the half-way facility. Follow up with medical doctor at the facility. Yara Castro NP Nov 01, 2019 11:02
== END 2019-10-28 22:00 | DRG 720 ==
LOC: EDBD 02:08 → EMR 03:14 → 2E 03:45 → EDBEDREQ 04:51 → 2E 06:22 → ICU 09-17 10:10 → 2W 10-11 04:12
PROC: 5A1955Z Respiratory Ventilation, Greater than 96 Consecutive Hours (ICD-10-PCS; principal; 2019-09-17)
PROC: 05HN33Z Insertion of Infusion Device into Left Internal Jugular Vein, Percutaneous Approach (ICD-10-PCS; 2019-09-23)
PROC: 5A1D70Z Performance of Urinary Filtration, Intermittent, Less than 6 Hours Per Day (ICD-10-PCS; 2019-09-24)
PROC: 0W9B3ZZ Drainage of Left Pleural Cavity, Percutaneous Approach (ICD-10-PCS; 2019-09-27)
DX: A41.9 Sepsis, unspecified organism (principal); N39.0 Urinary tract infection, site not specified; N17.9 Acute kidney failure, unspecified; I24.9 Acute ischemic heart disease, unspecified; J44.1 Chronic obstructive pulmonary disease with (acute) exacerbation; E87.6 Hypokalemia; E87.1 Hypo-osmolality and hyponatremia; J96.21 Acute and chronic respiratory failure with hypoxia; Z93.0 Tracheostomy status; G92 Toxic encephalopathy; J90 Pleural effusion, not elsewhere classified; I12.0 Hypertensive chronic kidney disease with stage 5 chronic kidney disease or end stage renal disease; N18.5 Chronic kidney disease, stage 5; Z95.0 Presence of cardiac pacemaker; L89.154 Pressure ulcer of sacral region, stage 4; R65.20 Severe sepsis without septic shock; J15.1 Pneumonia due to Pseudomonas; J15.212 Pneumonia due to Methicillin resistant Staphylococcus aureus; D64.9 Anemia, unspecified; D47.3 Essential (hemorrhagic) thrombocythemia; R13.10 Dysphagia, unspecified; E87.5 Hyperkalemia; F20.9 Schizophrenia, unspecified; Z20.828 Contact with and (suspected) exposure to other viral communicable diseases; S00.511A Abrasion of lip, initial encounter; X58.XXXA Exposure to other specified factors, initial encounter; Y92.9 Unspecified place or not applicable; E87.0 Hyperosmolality and hypernatremia; E86.0 Dehydration; R18.8 Other ascites; K94.23 Gastrostomy malfunction; G20 Parkinson's disease; I48.0 Paroxysmal atrial fibrillation; I27.20 Pulmonary hypertension, unspecified; I35.1 Nonrheumatic aortic (valve) insufficiency
CPT/HCPCS: 36415; 36569; 36600; 71045; 71250; 74018; 76604; 76770; 76937; 76942; 78580; 80048; 80053; 80061; 80076; 80170; 80202; 81001; 81003; 82164; 82550; 82607; 82728; 82746; 82803; 82962; 82977; 83540; 83550; 83605; 83735; 83880; 83986; 84100; 84300; 84450; 84460; 84484; 84550; 85007; 85025; 85379; 85610; 85730; 86140; 86706; 86707; 86803; 86850; 86900; 86901; 86920; 87040; 87070; 87086; 87181; 87205; 87324; 88104; 89051; 93005; 93306; 93970; 94002; 94003; 94640; 96365; 96366; 96368; 96375; 99291; J1815; J2250; J2310; J2765; J7030; J7620; J8499; U0002

== ENCOUNTER 2019-11-28 20:25 | Inpatient (IN) | payer MEDICAID ==
[~2019-11-28] VITALS: Ht 162.6 cm; Wt 70.0 kg
[~2019-11-28 20:25] MED LIST changes: +ATROVENT HFA12.9 GM IH; +CARDIZEM60 MG GT; +GENTAMICIN IV; +LOPID600 MG GT; +METOCLOPRA10 MG/10 M GT; -METOCLOPRA10 MG/10 M ORAL; +OXYCODONE HCL5 M2 GT; +PROVENTIL HFA6.7 G1 IH; +TYLENOL325 M1 GT
[2019-11-28] MEDS ORDERED: Cefepime HCl 2 GM in NS 110 ML IV ONE (20:45)
[2019-11-28] MEDS ORDERED: Vancomycin 1 GM in NS 275 ML IV ONE (20:45)
[2019-11-28 20:51] LABS: APPEARANCE,URINE CLOUDY; BILIRUBIN, URINE NEGATIVE (NEGATIVE); COLOR,URINE PALE YELLOW; GLUCOSE, URINE (UA) NEGATIVE (NEGATIVE); HEMATOCRIT 26.2 % (37.0-47.0); HEMOGLOBIN 8.1 G/DL (12.0-16.0); KETONES,URINE NEGATIVE (NEGATIVE); LEUKOCYTE ESTERASE ,URINE 3+ (NEGATIVE); MEAN CORPUSCULAR VOLUME 93 FL (80-99); NITRITE,URINE NEGATIVE (NEGATIVE); PH,URINE 8 (4.5-8.0); PLATELET COUNT 420 K/UL (150-450); PROTEIN,URINE 3+ (NEGATIVE); RED BLOOD COUNT 2.83 M/UL (4.20-5.40); RED CELL DISTRIBUTION WIDTH 15.2 % (11.6-14.8); UROBILINOGEN,URINE NORMAL MG/DL (0.0-1.0)
[2019-11-28 21:00] VITALS: BP 144/68
[2019-11-28 21:00] LABS: INR 1.3 (0.9-1.1)
[2019-11-28 21:04] LABS: WHITE BLOOD COUNT 31.6 K/UL (4.8-10.8)
[2019-11-28 21:12] LABS: ANION GAP 25 mmol/L (5-15); BLOOD UREA NITROGEN 123 mg/dL (7-18); CALCIUM 9.2 MG/DL (8.5-10.1); CARBON DIOXIDE 10 MMOL/L (21-32); CHLORIDE 94 MMOL/L (98-107); CREATININE 3.8 MG/DL (0.55-1.30); POTASSIUM 4.1 MMOL/L (3.5-5.1); SODIUM 129 MMOL/L (136-145)
[2019-11-28] MEDS ORDERED: VITAMIN C500 M1 GT (21:25)
[2019-11-28] MEDS ORDERED: LISINOPRIL30 MG GT (21:25)
[2019-11-28] MEDS ORDERED: GEMFIBROZIL600 MG GT (21:25)
[2019-11-28] MEDS ORDERED: ATORVASTATIN CA20 MG GT (21:25)
[2019-11-28] MEDS ORDERED: RISPERDAL2 MG GT (21:25)
[2019-11-28] MEDS ORDERED: NORCO 10-325 T1 EACH GT (21:25)
[2019-11-28] MEDS ORDERED: CLONIDINE1 EAC1 TD (21:25)
[2019-11-28] MEDS ORDERED: PROCRIT10000 UNIT SUBQ (21:25)
[2019-11-28] MEDS ORDERED: PRO-STAT LIQUID30 ML GT (21:25)
[2019-11-28] MEDS ORDERED: NEPHROVITE1 TAB GT (21:25)
[2019-11-28] MEDS ORDERED: MINOXIDIL2.5 MG GT (21:25)
[2019-11-28] MEDS ORDERED: HEPARIN SO5000 UNIT2 SUBQ (21:25)
[2019-11-28] MEDS ORDERED: CALCIUM ALGINATE1 GM MC (21:25)
[2019-11-28] MEDS ORDERED: METOLAZONE2.5 MG GT (21:25)
[2019-11-28] MEDS ORDERED: REGLAN5 MG GT (21:25)
[2019-11-28] MEDS ORDERED: CARDIZEM30 M1 GT (21:25)
[2019-11-28] MEDS ORDERED: ZINC SULFATE220 M2 GT (21:25)
[2019-11-28] MEDS ORDERED: MIRALAX17 G2 GT (21:25)
[2019-11-28 21:27] LABS: ALANINE AMINOTRANSFERASE < 6 U/L (12-78); ALBUMIN 2.4 G/DL (3.4-5.0); ALBUMIN/GLOBULIN RATIO 0.6 (1.0-2.7); ALKALINE PHOSPHATASE 192 U/L (46-116); ASPARTATE AMINO TRANSFERASE 19 U/L (15-37); BILIRUBIN,TOTAL 0.4 MG/DL (0.2-1.0); CKMB 5.8 NG/ML (0.0-3.6); PHOSPHORUS 6.5 MG/DL (2.5-4.9)
[2019-11-28] MEDS ORDERED: Sodium Bicarbonate 50ml Carp IV ONE (21:30)
--- NOTE | 2019-11-28 21:33 | Emergency Room Report ---
History of Present Illness General Chief Complaint: Dyspnea/Respdistress Source: Patient Present Illness HPI 49-year-old female with history of COPD, chronic respiratory failure s/p tracheostomy, PEG status, sacral decubitus ulcer, CAD s/p CABG, CKD, chronically bedbound presents by ambulance with hypoxia History is limited secondary to patient's altered mental status. According to EMS, patient was found to be hypoxic and having gurgling sounds from the trach. [facility] noted her to have a pulse oxygen saturation of 20% and bagged her up using BVM before calling 911. Patient never lost pulses or coded. Pt was tested for COVID 19 on November 13 and negative. Patient is FULL CODE. The patient's symptoms were gradual onset, severity was moderate, duration since several days. Quality: Generally weak Past medical history: COPD, chronic respiratory failure, CHF, depression, schizophrenia, sacral decubitus ulcer, CAD, CKD Past surgical history: Trach, PEG, CABG Smoking: Unable to obtain Alcohol use: Unable to obtain Drug use: Unable to obtain Review of systems: Unable to obtain secondary to patient's altered mental status 14 point Review of Systems is otherwise negative except per HPI Physical Exam: GENERAL: Awake, chronically ill-appearing, diaphoretic, tachypneic EYES: Pupils reactive. Conjunctiva clear. Periorbital swelling bilaterally. ENT: External nose and ear appear normal. Oropharynx clear. Head atraumatic. NECK: No thyromegaly. No midline tenderness. Trach in place, c/d/i, no discharge or bleeding. LUNGS: Coarse breath sounds bilaterally, right greater than left. CARDIAC: Tachycardic rate and rhythm. Normal radial pulses bilaterally. No significant pedal edema. ABDOMEN: Soft, nontender, and nondistended. No rebound/guarding. No hepatosplenomegaly. G-tube in place, epigastrium, c/d/i, no discharge or tenderness. Large sacral decubitus ulcer present on admission with surrounding cellulitis. No Gaviota's gangrene No CVA tenderness to palpation. Norman is inserted with only 20 cc of heavily sedimented raul appearing urine MSK: Poor muscle tone, contractures with rigidity in extremities. Extremities without asymmetric deformity or swelling. NEUROLOGIC: Awake. Does not follow commands for motor and sensory exam. No truncal ataxia. GCS 2-4-2, protecting airway, intact gag reflex. Withdraws to pain in extremities, groans and opens eyes to sternal rub. SKIN: Warm and dry. No cyanosis or urticaria present. - COORDINATION OF CARE Case was discussed with: Patient , Patient's Physician Any labs and imaging that were ordered were interpreted as part of the medical decision making: Medical Decision Making/Plan: Differential diagnosis includes sepsis / severe sepsis, cellulitis UTI, pneumonia , viral syndrome, gastroenteritis, emergent abdominal infection, among others. Initial vitals show hypoxia on FiO2 of 80%. It is unknown by EMS what her baseline O2 saturation is. Patient is chronically ill appearing with course breath sounds throughout, but worse on the right. She also is noted to have a large complex sacral decubitus ulcer without fourniere's gangrene. UA is positive for UTI. CXR demonstrates full opacification of the right hemidiaphragm, likely exudative pleural effusion or empyema. We did do deep suctioning of the patient's trach and retrieved thick velasco secretions. I performed a bedside ultrasound that showed diffuse B lines R > L. EF ~40%. No tamponade. No AAA or Ao dissection. No PTX bilaterally. Sepsis bundle initiated on arrival. Blood cultures, lactate drawn. Lactate was elevated critically elevated at 7 , patient was given 30 cc/kg IV fluids by bolus. Pt also had WBC of 31, hco3 of 10, JAVIER on CKD, hyponatremia, and type II NSTEMI likely from demand ischemia. EKG was negative for STEMI. Lipase was also elevated. Empiric antibiotics were started. Covid swab was negative Patient will be admitted to the hospital for further care and evaluation. Patient has generally poor prognosis at this time and will be admitted to SDU. I spoke with Dr. Dong, and reviewed the patients presentation, workup, results, and treatment. They will admit the patient for further care and evaluation, and assume care of the patient at this time. 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 COVID-19 Screening: Negative COVID-19 COVID-19 Testing Source: NA Nursing Documentation-PMH Hx Cardiac Problems: Yes - HF, Hx Hypertension: Yes Hx Pacemaker: Yes - Left upper chest Hx Diabetes: Yes Hx Cancer: No Hx Gastrointestinal Problems: Yes - gerd, gastrostomy History Of Psychiatric Problem: Yes - schizophrenia, depression, Hx Neurological Problems: Yes - dysphagia, Hx Cerebrovascular Accident: No Hx Transient Ischemic Attacks: No Hx Dementia: No Hx Alzheimer's Disease: No Hx Parkinson's Disease: Yes Hx Meningitis: No Hx Encephalitis: No Hx Dysphasia: Yes Physical Exam Vital Signs Date Time Temp Pulse Resp B/P (MAP) Pulse Ox O2 Delivery O2 Flow Rate FiO2 11/28/19 20:21 79 15 173/64 (100) 92 Mechanical Ventilator 11/28/19 21:12 80 Sp02 EP Interpretation: reviewed, abnormal Procedures Critical Care Time Critical Care Time Critical Care Statement Organ systems at risk include: Pulmonary, cardiac, circulatory Critical care performed for 45 minutes. Time is exclusive of separately billable procedures. Time includes: direct patient care, continuous monitoring and multiple patient reassessment, coordination of patient care, review of patient's medical records, medical consultation, family consultation regarding treatment decisions and documentation of patient care. Central Line Progress Central Line Placement by me: Patient consented, sterilely draped, full prep, gown, glove, mask, time out performed. Maximal sterile barrier technique used. Anesthesia: 1% lidocaine locally Location: [XOXOXO] Device: Multiple lumen Technique: Seldinger technique. Secured with suture. Results: Venous return from all ports with easy saline flush. No complications. Compl : None Guide wire [XOXOXO] retrieved and disposed of. [ED Procedural Ultrasound by me: Central line placed by me using concurrent ultrasound guidance. Real time image archived in the medical record confirms vascular anatomy.] Chest X-ray 1V Interpreted by me: Central line [XOXOXO] in SVC, Normal soft tissue, No evidence of pneumothorax. Medical Decision Making Diagnostic Impression: Primary Impression: Hypoxia Additional Impressions: Respiratory failure Pneumonia History of tracheostomy Sacral decubitus ulcer, stage IV UTI (urinary tract infection) Dehydration Renal failure Acidosis PEG (percutaneous endoscopic gastrostomy) status Schizophrenia Depression Hx of CABG Acute encephalopathy Anemia ARF (acute renal failure) Feeding by G-tube Pleural effusion Sepsis Tracheostomy in place NSTEMI (non-ST elevated myocardial infarction) Pancreatitis JAVIER (acute kidney injury) S/P aortic dissection repair EKG Diagnostic Results Troponin ordered: Yes When was troponin ordered?: Nov 28, 2019 EKG Time: 20:18 Rate: normal Rhythm: NSR ST Segments: no acute changes ASA given to the pt in ED: No PA Scribe Text 12-lead EKG (interpreted by me) Time: 2017 Indication: Rhythm analysis Tracing visualized and Interpreted by me. Rhythm: Normal sinus rhythm Rate: 78 bpm QTc: 456 Morphology: No_significant_ST_elevations_or_depressions, No STEMI Impression: Normal_sinus_rhythm_without_significant_abnormality Rhythm Strip Diag. Results Rhythm Strip Time: 21:24 EP Interpretation: yes Rate: 78 Rhythm: NSR, no PVC's, no ectopy Chest X-Ray Diagnostic Results Chest X-Ray Diagnostic Results : PA Scribe Text Chest X-Ray: Views: [ 1 ] view(s) Indication: Hypoxia Findings: Infiltrate of the right upper lobe and right lower lobe Impression: Full opacification of the right lung. Cardiomegaly. Previous CABG. No pneumothorax. Tracheostomy is in place The X-ray(s) were independently viewed and interpreted contemporaneously Electronically signed by Nai rodriguez DO Reevaluation Time: 21:25 Last Vital Signs Date Time Temp Pulse Resp B/P (MAP) Pulse Ox O2 Delivery O2 Flow Rate FiO2 11/28/19 21:12 78 30 80 11/28/19 20:21 173/64 (100) 92 Mechanical Ventilator Status: improved Disposition: ADMITTED INPATIENT - ICU Admit Decision Time: 21:26 Condition: Critical Referrals: Lucas Dong MD (PCP) Nai Dimas D.O. Nov 28, 2019 21:33
[2019-11-28 22:00] VITALS: BP 156/53
[2019-11-29] VITALS (7 sets, daily range): BP systolic 114–160; BP diastolic 57–76
[2019-11-29] MEDS ORDERED: Albuterol/Ipratropium 3ml neb HHN PRN (01:30)
[2019-11-29] MEDS ORDERED: HYDROmorphone 2mg tab GT PRN (01:30)
[2019-11-29] MEDS ORDERED: HYDROcodone/Acetamin 10/325 tab GT PRN ×2 (01:45→15:30)
[2019-11-29 04:46] LABS: HEMATOCRIT 24.9 % (37.0-47.0); HEMOGLOBIN 8.3 G/DL (12.0-16.0); MEAN CORPUSCULAR VOLUME 87 FL (80-99); PLATELET COUNT 325 K/UL (150-450); RED BLOOD COUNT 2.88 M/UL (4.20-5.40); RED CELL DISTRIBUTION WIDTH 14.1 % (11.6-14.8)
[2019-11-29 05:00] LABS: WHITE BLOOD COUNT 29.2 K/UL (4.8-10.8)
[2019-11-29] MEDS: Minoxidil 2.5mg tab GT SCH ×2 (05:04→05:09)
[2019-11-29 05:15] LABS: ALBUMIN 2.5 G/DL (3.4-5.0); ANION GAP 19 mmol/L (5-15); BLOOD UREA NITROGEN 115 mg/dL (7-18); CALCIUM 9.1 MG/DL (8.5-10.1); CARBON DIOXIDE 16 MMOL/L (21-32); CHLORIDE 96 MMOL/L (98-107); CREATININE 3.4 MG/DL (0.55-1.30); PHOSPHORUS 5.3 MG/DL (2.5-4.9); POTASSIUM 4.3 MMOL/L (3.5-5.1); SODIUM 131 MMOL/L (136-145)
[2019-11-29] MEDS: dilTIAZem HCl 30mg tab ORAL SCH ×2 (05:36→14:00)
[2019-11-29] MEDS: Ascorbic Acid 500mg tab GT SCH (08:15)
[2019-11-29] MEDS: Nephrovite tab (Rena-Vite) GT SCH (08:16)
[2019-11-29] MEDS: Zinc Sulfate 220mg GT SCH (08:16)
[2019-11-29] MEDS: Heparin 5000 units/ml inj SUBQ SCH ×2 (08:19→20:50)
[2019-11-29] MEDS ORDERED: Vitamin D 1000 IU Tab GT SCH (09:00)
[2019-11-29] MEDS ORDERED: Cefepime HCl 1 GM in D5W 55 ML IVPB SCH (09:00)
[2019-11-29] MEDS ORDERED: Lisinopril 20mg tab GT SCH (09:00)
--- NOTE | 2019-11-29 12:26 | Consultation ---
Consult Note Consult Note I am asked to evaluate the patient at the request of Dr. Dong for renal failure Patient known to me from her previous admission. She was discharged on October 26. Patient received temporary dialysis in the past. However did not require dialysis treatment upon discharge. 49-year-old female with history of COPD, chronic respiratory failure s/p tracheostomy, PEG status, sacral decubitus ulcer, CAD s/p CABG, CKD, chronically bedbound presents by ambulance with hypoxia History is limited secondary to patient's altered mental status. According to EMS, patient was found to be hypoxic and having gurgling sounds from the trach. Nurse at the [facility] noted her to have a pulse oxygen saturation of 20% and bagged her up using BVM before calling 911. Patient never lost pulses or coded. Pt was tested for COVID 19 on November 13 and negative. Patient is FULL CODE. The patient's symptoms were gradual onset, severity was moderate, duration since several days. 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 HEENT: Dry mucous membranes. NECK: Trach site with thin secretions. LUNGS: Bilateral rhonchi. CARDIAC: Regular rhythm and rate. Normal S1, S2 with a fourth heart sound. ABDOMEN: Soft with G-tube. EXTREMITIES: No edema. LABORATORY DATA: Sodium 131, potassium 3.8, bicarb 16, BUN 122, creatinine 3.2. Troponin is 0.346, increased from 0.126. Pro-natriuretic peptide is over 35,000. Lipase is over 2000. Albumin is 3.1. EKG with sinus rhythm, anteroseptal infarction of indeterminate age, nonspecific ST-T change. Chest x-ray, status post thoracentesis reveals resolved right pleural effusion. Left consolidation. Tracheostomy. Median sternotomy. . Assessment/Plan Patient is presented with sepsis and pneumonia and UTI, hypoxia Patient has acute renal failure, possible underlying chronic kidney failure Severe anemia Electrolyte imbalances: Hyponatremia, hypo-kalemia Chronic respiratory failure, COPD exacerbation Has sacral decubitus ulcer stage IV PEG Suggestions: Urine studies Adjust blood pressure medication Albumin bolus Norman catheter, intake and output Monitor renal parameters Avoid nephrotoxic's Antibiotics Per orders Johnny Houston MD Nov 29, 2019 12:26
[2019-11-29] MEDS ORDERED: Gentamicin Rx monitoring MISC PRN (13:30)
--- NOTE | 2019-11-29 13:35 | Consultation ---
History of Present Illness General Date patient seen: Nov 29, 2019 Chief Complaint: Dyspnea/Respdistress Present Illness HPI 49 y/o F with hx of CAD s/p CABG, GERD/gastritis, Afib, HTN, s/p PPM, Parkinson's Disease, schizophrenia, COPD, chronic resp failure s/p trach, tr acheal bleeding, PPM site infection and abscess sp removal (ABBIE neg) 11/2018, MRSA pneumonia, dysphagia sp GT, aortic dissection s/p repair 2017, [place] resident ([facility]) presented to ED on 11/28/19 with hypoxia; apparently O2 at [place] was 20% and patient was bagged and EMS called. Of note, patient was admitted here from 09/14-10/27 with acute on chronic resp failure, MDR PNA, UTI, bacteremia. Allergies: Coded Allergies: No Known Allergies (Unverified , 10/10/17) Medication History Scheduled Amino Acids/Protein Hydrolys (Pro-Stat Liquid), 30 ML GT TWICE A DAY, (Reported) Amlodipine Besylate (Norvasc), 10 MG GT DAILY, (Reported) Ascorbic Acid* (Vitamin C*), 500 MG GT DAILY, (Reported) Atorvastatin Calcium* (Atorvastatin Calcium*), 10 MG GT BEDTIME, (Reported) Clonazepam* (Klonopin*), 1 MG GT Q12HR, (Reported) Diltiazem Hcl* (Cardizem*), 90 MG GT EVERY 6 HOURS, (Reported) Diltiazem Hcl* (Cardizem*), 30 MG GT Q8HR, (Reported) Docusate Sodium* (Colace*), 100 MG GT DAILY, (Reported) Epoetin Gelacio (Procrit), 10,000 UNIT SUBQ 3XW, (Reported) Gemfibrozil* (Lopid*), 500 MG GT TWICE A DAY, (Reported) Glycopyrrolate (Glycopyrrolate), 1 MG GT THREE TIMES A DAY, (Reported) Heparin Sod (Porcine) (Heparin Sodium*), 5,000 UNITS SUBQ EVERY 8 HOURS, (Reported) Heparin Sod (Porcine) (Heparin Sodium*), 5,000 UNITS SUBQ EVERY 12 HOURS, (Reported) Hydralazine Hcl* (Hydralazine Hcl*), 100 MG ORAL EVERY 8 HOURS, (Reported) Lisinopril* (Lisinopril*), 20 MG GT DAILY, (Reported) Magnesium Hydroxide* (Milk Of Magnesia*), 30 ML GT DAILY, (Reported) Meropenem (Merrem), 1 GM IV EVERY 12 HOURS Metoclopramide Hcl* (Reglan*), 5 MG GT EVERY 6 HOURS, (Reported) Metoprolol Tartrate* (Metoprolol Tartrate*), 50 MG GT EVERY 12 HOURS, (Reported) Minoxidil* (Loniten*), 2.5 MG GT DAILY, (Reported) Olanzapine (Zyprexa), 7.5 MG GT DAILY, (Reported) Polyethylene Glycol 3350* (Miralax*), 17 GM GT DAILY, (Reported) Risperidone* (Risperdal*), 2 MG GT DAILY, (Reported) Sennosides (Senna), 8.6 MG GT BEDTIME, (Reported) Sertraline Hcl* (Zoloft*), 100 MG GT DAILY, (Reported) Vancomycin In Dextrose,Iso-Osm (Vancomycin 750 Mg/150 Ml Bag), 750 MG IV DAILY Vitamin B Cmplx/Vit C/Folic AC (Nephro-Cyril Tablet), 1 TAB GT DAILY, (Reported) Zinc Sulfate (Zinc Sulfate), 220 MG GT DAILY, (Reported) Scheduled PRN Bisacodyl (Dulcolax), 10 MG RC DAILY PRN for Constipation, (Reported) Hydrocodone Bit/Acetaminophen 10-325* ([place] 10-325*), 1 TAB GT Q6H PRN for For Pain, (Reported) Hydrocodone Bit/Acetaminophen 10-325* ([place] 10-325*), 1 TAB GT Q6H PRN for For Pain, (Reported) Melatonin (Melatonin), 6 MG GT BEDTIME PRN for Insomnia, (Reported) Metoclopramide Hcl* (Metoclopramide Hcl*), 10 MG ORAL EVERY 6 HOURS PRN for Nausea & Vomiting, (Reported) Na Phos,M-B/Na Phos,Di-Ba* (Fleet Enema*), 133 ML RECTAL DAILY PRN for Constipation, (Reported) Oxycodone Hcl* (Oxycodone Hcl*), 5 MG GT Q4H PRN for For Pain, (Reported) Miscellaneous Medications Acetaminophen (Tylenol), 325 MG GT, (Reported) Albuterol Sulfate (Proventil Hfa), 6.7 GM IH, (Reported) Calcium Alginate (Calcium Alginate), 1 GM MC, (Reported) Clonidine (Clonidine), 1 EACH TD, (Reported) Gemfibrozil (Gemfibrozil*), 600 MG GT, (Reported) Ipratropium [place] (Atrovent Hfa), 12.9 GM IH, (Reported) Metolazone (Metolazone), 2.5 MG GT, (Reported) Patient History Healthcare decision maker Resuscitation status Advanced Directive on File Patient History Narrative Pmhx: as above Shx: reviewed Fhx: non contributory Review of Systems All Other Systems: negative except mentioned in HPI Physical Exam Physical Exam Narrative GENERAL: Awake, chronically ill-appearing, diaphoretic, tachypneic EYES: Pupils reactive. Conjunctiva clear. Periorbital swelling bilaterally. ENT: External nose and ear appear normal. Oropharynx clear. Head atraumatic. NECK: No thyromegaly. No midline tenderness. Trach in place, c/d/i, no discharge or bleeding. LUNGS: Coarse breath sounds bilaterally, right greater than left. CARDIAC: Tachycardic rate and rhythm. Normal radial pulses bilaterally. No significant pedal edema. ABDOMEN: Soft, nontender, and nondistended. No rebound/guarding. No hepatosplenomegaly. G-tube in place, epigastrium, c/d/i, no discharge or tenderness. Large sacral decubitus ulcer present on admission with surrounding cellulitis. Norman is inserted with only 20 cc of heavily sedimented raul appearing urine MSK: Poor muscle tone, contractures with rigidity in extremities. Extremities without asymmetric deformity or swelling. Last 24 Hour Vital Signs Date Time Temp Pulse Resp B/P (MAP) Pulse Ox O2 Delivery O2 Flow Rate FiO2 11/29/19 12:00 80 11/29/19 12:00 Mechanical Ventilator 11/29/19 12:00 97.5 67 20 145/63 (90) 100 11/29/19 11:10 78 30 80 11/29/19 08:16 151/74 11/29/19 08:00 100 11/29/19 08:00 97.5 60 28 151/74 (99) 100 11/29/19 08:00 Mechanical Ventilator 11/29/19 08:00 70 11/29/19 07:20 68 25 80 11/29/19 05:36 87 148/79 11/29/19 05:09 134/70 11/29/19 05:00 59 137/70 (92) 11/29/19 04:00 65 11/29/19 04:00 Mechanical Ventilator 11/29/19 04:00 96.4 66 28 160/75 (103) 98 11/29/19 03:02 70 26 100 11/29/19 00:00 69 11/29/19 00:00 100 11/29/19 00:00 97.2 80 24 152/69 (96) 94 11/29/19 00:00 Mechanical Ventilator 11/28/19 23:59 69 11/28/19 23:29 88 27 100 11/28/19 23:05 97.1 74 20 156/53 97 Mechanical Ventilator 100 11/28/19 22:00 97.1 74 20 156/53 97 Mechanical Ventilator 100 11/28/19 21:12 78 30 80 11/28/19 21:00 97.1 79 20 144/68 96 Mechanical Ventilator 80 11/28/19 20:40 79 15 Mechanical Ventilator 11/28/19 20:21 79 15 173/64 (100) 92 Mechanical Ventilator Intake and Output 11/28/19 11/29/19 19:00 07:00 Intake Total 110 ml Output Total 300 ml Balance -190 ml Intake Free Water 50 ml Tube Feeding 60 ml Output Urine Total 300 ml # Bowel Movements 2 Laboratory Tests Test 11/28/19 20:30 11/28/19 20:53 11/28/19 22:30 11/29/19 02:40 White Blood Count 31.6 K/UL (4.8-10.8) *H 29.2 K/UL (4.8-10.8) *H Red Blood Count 2.83 M/UL (4.20-5.40) L 2.88 M/UL (4.20-5.40) L Hemoglobin 8.1 G/DL (12.0-16.0) L 8.3 G/DL (12.0-16.0) L Hematocrit 26.2 % (37.0-47.0) L 24.9 % (37.0-47.0) L Mean Corpuscular Volume 93 FL (80-99) 87 FL (80-99) Mean Corpuscular Hemoglobin 28.6 PG (27.0-31.0) 28.7 PG (27.0-31.0) Mean Corpuscular Hemoglobin Concent 30.9 G/DL (32.0-36.0) L 33.2 G/DL (32.0-36.0) Red Cell Distribution Width 15.2 % (11.6-14.8) H 14.1 % (11.6-14.8) Platelet Count 420 K/UL (150-450) 325 K/UL (150-450) Mean Platelet Volume 5.0 FL (6.5-10.1) L 4.4 FL (6.5-10.1) L Neutrophils (%) (Auto) % (45.0-75.0) % (45.0-75.0) Lymphocytes (%) (Auto) % (20.0-45.0) % (20.0-45.0) Monocytes (%) (Auto) % (1.0-10.0) % (1.0-10.0) Eosinophils (%) (Auto) % (0.0-3.0) % (0.0-3.0) Basophils (%) (Auto) % (0.0-2.0) % (0.0-2.0) Differential Total Cells Counted 100 100 Neutrophils % (Manual) 92 % (45-75) H 96 % (45-75) H Lymphocytes % (Manual) 5 % (20-45) L 2 % (20-45) L Monocytes % (Manual) 3 % (1-10) 1 % (1-10) Eosinophils % (Manual) 0 % (0-3) 0 % (0-3) Basophils % (Manual) 0 % (0-2) 0 % (0-2) Band Neutrophils 0 % (0-8) 1 % (0-8) Platelet Estimate Increased H Adequate Platelet Morphology Normal Normal Hypochromasia 1+ 1+ Anisocytosis 1+ 1+ Prothrombin Time 13.8 SEC (9.30-11.50) H Prothromb Time International Ratio 1.3 (0.9-1.1) H Activated Partial Thromboplast Time 32 SEC (23-33) Urine Color Pale yellow Urine Appearance Cloudy Urine pH 8 (4.5-8.0) Urine Specific [place] 1.010 (1.005-1.035) Urine Protein 3+ (NEGATIVE) H Urine Glucose (UA) Negative (NEGATIVE) Urine Ketones Negative (NEGATIVE) Urine Blood 5+ (NEGATIVE) H Urine Nitrite Negative (NEGATIVE) Urine Bilirubin Negative (NEGATIVE) Urine Urobilinogen Normal MG/DL (0.0-1.0) Urine Leukocyte Esterase 3+ (NEGATIVE) H Urine RBC Tntc /HPF (0 - 2) H Urine WBC 30-40 /HPF (0 - 2) H Urine Squamous Epithelial Cells Moderate /LPF (NONE/OCC) H Urine Bacteria Many /HPF (NONE) H Sodium Level 129 MMOL/L (136-145) L 131 MMOL/L (136-145) L Potassium Level 4.1 MMOL/L (3.5-5.1) 4.3 MMOL/L (3.5-5.1) Chloride Level 94 MMOL/L (98-107) L 96 MMOL/L (98-107) L Carbon Dioxide Level 10 MMOL/L (21-32) L 16 MMOL/L (21-32) L Anion Gap 25 mmol/L (5-15) H 19 mmol/L (5-15) H Blood Urea Nitrogen 123 mg/dL (7-18) H 115 mg/dL (7-18) H Creatinine 3.8 MG/DL (0.55-1.30) H 3.4 MG/DL (0.55-1.30) H Estimat Glomerular Filtration Rate 12.8 mL/min (>60) 14.5 mL/min (>60) Glucose Level 168 MG/DL (74-106) H 128 MG/DL (74-106) H Lactic Acid Level 7.10 mmol/L (0.4-2.0) H 3.00 mmol/L (0.66-2.22) H Calcium Level 9.2 MG/DL (8.5-10.1) 9.1 MG/DL (8.5-10.1) Phosphorus Level 6.5 MG/DL (2.5-4.9) H 5.3 MG/DL (2.5-4.9) H Magnesium Level 3.5 MG/DL (1.8-2.4) H 3.2 MG/DL (1.8-2.4) H Total Bilirubin 0.4 MG/DL (0.2-1.0) Aspartate Amino Transf (AST/SGOT) 19 U/L (15-37) Alanine Aminotransferase (ALT/SGPT) < 6 U/L (12-78) L Alkaline Phosphatase 192 U/L (46-116) H Creatine Kinase MB 5.8 NG/ML (0.0-3.6) H Troponin I 0.123 ng/mL (0.000-0.056) Total Protein 6.6 G/DL (6.4-8.2) Albumin 2.4 G/DL (3.4-5.0) L 2.5 G/DL (3.4-5.0) L Globulin 4.2 g/dL Albumin/Globulin Ratio 0.6 (1.0-2.7) L Lipase 667 U/L (73-393) H Arterial Blood pH 7.145 (7.350-7.450) Arterial Blood Partial Pressure CO2 32.3 mmHg (35.0-45.0) L Arterial Blood Partial Pressure O2 95.3 mmHg (75.0-100.0) Arterial Blood HCO3 10.9 mmol/L (22.0-26.0) *L Arterial Blood Oxygen Saturation 94.9 % (95-100) L Arterial Blood Base Excess -16.7 (-2-2) *L Rojas Test Positive Free Thyroxine 0.55 NG/DL (0.76-1.46) L Test 11/29/19 09:20 11/29/19 10:59 Arterial Blood pH 7.350 (7.350-7.450) Arterial Blood Partial Pressure CO2 30.0 mmHg (35.0-45.0) L Arterial Blood Partial Pressure O2 95.0 mmHg (75.0-100.0) Arterial Blood HCO3 16.3 mmol/L (22.0-26.0) *L Arterial Blood Oxygen Saturation 97.0 % (95-100) Arterial Blood Base Excess -8.3 (-2-2) L Rojas Test Positive Lactic Acid Level 0.40 mmol/L (0.4-2.0) Albumin 2.5 G/DL (3.4-5.0) L Microbiology Date/Time Source Procedure Growth Status 11/28/19 20:40 Rectum Received 11/28/19 20:30 Nasopharynx SARS-CoV-2 RdRp Gene Assay - Final Complete Height (Feet): 5 Height (Inches): 4.00 Weight (Pounds): 150 Medications Current Medications Medications (Trade) Dose Ordered Sig/Penny Route PRN Reason Start Time Stop Time Status Last Admin Dose Admin Acetaminophen (Tylenol) 650 mg Q4H PRN GT Temp >100.5 11/29/19 04:30 12/29/19 04:29 Acetaminophen/ Hydrocodone Bitart ([place] 10/325) 1 tab Q6H PRN GT For moderate pain 11/29/19 01:45 12/06/19 01:44 Albumin Human 100 ml @ 100 mls/hr Q8HR IV 11/29/19 14:00 02/27/20 13:59 Albuterol/ Ipratropium (Albuterol/ Ipratropium) 3 ml Q3H PRN HHN Shortness of Breath 11/29/19 01:30 12/04/19 01:29 Ascorbic Acid (Vitamin C) 500 mg DAILY GT 11/29/19 09:00 12/29/19 08:59 11/29/19 08:15 Cefepime HCl 1 gm/ Dextrose 55 ml @ 110 mls/hr EVERY 12 HOURS IVPB 11/29/19 09:00 12/06/19 08:59 11/29/19 08:20 Clonidine HCl (Catapres TTS-1) 1 patch ONCE A WEEK TDERMAL 12/03/19 09:00 03/02/20 08:59 Diltiazem HCl (Cardizem Tab) 30 mg EVERY 8 HOURS ORAL 11/29/19 06:00 12/29/19 05:59 11/29/19 05:36 Epoetin Gelacio (Epoetin Gelacio-EPBX(NON ESRD)) 10,000 unit MON-MON-MON SUBQ 11/29/19 21:00 02/27/20 20:59 Gemfibrozil (Lopid) 600 mg TWICE A DAY GT 11/29/19 09:00 12/29/19 08:59 11/29/19 08:15 Heparin Sodium (Porcine) (Heparin 5000 units/ml) 5,000 units EVERY 12 HOURS SUBQ 11/29/19 09:00 01/13/20 08:59 11/29/19 08:19 Hydralazine HCl (Apresoline) 25 mg Q6HR GT 11/29/19 18:00 02/27/20 17:59 Hydromorphone HCl (Dilaudid) 2 mg Q6H PRN GT Severe Pain (Pain Scale 7-10) 11/29/19 01:30 12/06/19 01:29 Metoclopramide HCl (Reglan) 5 mg Q6HR GT 11/29/19 06:00 12/29/19 05:59 11/29/19 11:54 Metolazone (Zaroxolyn) 2.5 mg QHS GT 11/29/19 21:00 12/29/19 20:59 Metolazone (Zaroxolyn) 5 mg DAILY GT 11/29/19 09:00 12/29/19 08:59 11/29/19 08:15 Polyethylene Glycol (Miralax) 17 gm BEDTIME ORAL 11/29/19 21:00 12/29/19 20:59 Risperidone (RisperDAL) 2 mg BEDTIME GT 11/29/19 21:00 01/13/20 20:59 Vancomycin HCl (Vanco pharmacy to dose) 1 ea DAILY PRN MISC Per rx protocol 11/29/19 01:15 12/29/19 01:14 Vitamin B Complex/ Vit C/Folic Acid (Nephrovite) 1 tab DAILY GT 11/29/19 09:00 12/29/19 08:59 11/29/19 08:16 Zinc Sulfate (Zinc Sulfate) 220 mg DAILY GT 11/29/19 09:00 02/27/20 08:59 11/29/19 08:16 Assessment/Plan Assessment/Plan: Abx: IV Vancomycin 11/27- Cefepime 11/27- Assessment: COVID19 neg x1 (11/27 rapid COVID PCR neg) Sepsis Probable U TI -u/a wbc 30-40, nit neg, leuk +3; ucx p PNA -CXR: official report pending, prelim per ER doc: Infiltrate of the right upper lobe and right lower lobe R/o probable bacteremia -Bcx p Afebrile Leukocytosis, improving Acute on chronic hypoxic resp failure JAVIER on CKD- on previous admission Sep-Oct 2019 required HD for short period hx of Recent MDR PnA, sp rx 10/15/19 sp cx ESBL P. mirabilis, MDR P.a. ( S only to Gent) 8/10 Resp cx + MDR PsA (S-gent; I-colistin; R-levofloxacin, Zosyn, angelo) 09/16/19 Sp cx ESBL P. mirablis hx of recent UTI 09/15/19 u/a wbc tnct, nit neg, leuk +3; ucx >100k MDR P. stuarti (S Ceftriaxone, Meropenem) 10/07 u/a wbc tnct, nit neg, leuk ; ucx >100k VRE 10/15/19 u/a wbc tnct; ucx >100k ESBL P. stuarti (S ertapenem, aztreonam) H/o PPM site (pocket) infection and pocket abscess 2ry to S. epi-11/2018, sp >6weeks IV vancomycin 11/27 SP ABBIE: no evidence for vegetation on any of the valves 11/26/18 SP PPM removal: OR findings:The fibrous capsule enclosing the generator was then opened and there was a [id number] amount of yellowish fluid drainage. The generator was then removed.Atrial and ventricular leads were detached. The necrotic tissue of the pocket was then removed and the pocket was flushed with an antibiotic solution. Capsule, wound tissue and lead tip cx: Neg 2d echo: no vegetation seen US chest: 4.6 x 3.4 x 0.9 cm hypoechoic/anechoic area overlying left chest pacemaker power pack. This could represent either a discrete fluid collection or a focal area of very edematous tissue. Infected fluid pocket also possible. 11/18 Bcx 3/4 S. epi; 11/20 Bcx neg; 11/24 Bcx Neg; 11/27 Bcx Neg CAD s/p CABG GERD/gastritis Afib HTN Dysphagia sp GT Aortic dissection s/p repair 2017, S/p PPM Parkinson's Disease Schizophrenia Anxiety COPD Chronic resp failure s/p trach Hx of tracheal bleeding [place] resident ([facility]) Plan: -Continue empiric IV Vancomycin #2 -Switch Cefepime #2 to Meropenem and add IV Gentamycin x1 pending cultures -f/u cx -Monitor CBC/CMP, temperatures -sp cx, influenza ag, legionella ag urine -PEG/trach care -aspiration precautions -COVID19 isolation and testing; send 2nd COVID -for thoracentesis- send fluid analysis and culture Thank you for this consultation. Will continue to follow along with you. Discussed with ERASMO. Doreen Nino M.D. Nov 29, 2019 13:35
--- NOTE | 2019-11-29 14:07 | Consultation ---
History of Present Illness General Date patient seen: Nov 29, 2019 Reason for Hospitalization: Dyspnea/Respdistress Present Illness HPI This is a 49-year-old female well known to me from prior care and surgery who has past medical history of COPD, chronic respiratory failure s/p tracheostomy, PEG status, sacral decubitus ulcer, CAD s/p CABG, CKD, chronically bedbound care dependant who presents by ambulance to [facility] for evaluation of hypoxia. History is limited secondary to patient's altered mental status. According to EMS, patient was found to be hypoxic and having gurgling sounds from the trach. Nurse at the snf facility noted her to have a pulse oxygen saturation of 20% and bagged her up using BVM before calling 911. Patient never lost pulses or coded. Pt was tested for COVID 19 on November 13 and negative. admitted for care and management. surgery called toe valuate trach and wounds. Allergies: Coded Allergies: No Known Allergies (Unverified , 10/10/17) COVID-19 Screening Contact w/high risk pt: Yes Experienced COVID-19 symptoms?: No Coronavirus symptoms experienc: Shortness of Breath Medication History Scheduled Amino Acids/Protein Hydrolys (Pro-Stat Liquid), 30 ML GT TWICE A DAY, (Reported) Amlodipine Besylate (Norvasc), 10 MG GT DAILY, (Reported) Ascorbic Acid* (Vitamin C*), 500 MG GT DAILY, (Reported) Atorvastatin Calcium* (Atorvastatin Calcium*), 10 MG GT BEDTIME, (Reported) Clonazepam* (Klonopin*), 1 MG GT Q12HR, (Reported) Diltiazem Hcl* (Cardizem*), 90 MG GT EVERY 6 HOURS, (Reported) Diltiazem Hcl* (Cardizem*), 30 MG GT Q8HR, (Reported) Docusate Sodium* (Colace*), 100 MG GT DAILY, (Reported) Epoetin Gelacio (Procrit), 10,000 UNIT SUBQ 3XW, (Reported) Gemfibrozil* (Lopid*), 500 MG GT TWICE A DAY, (Reported) Glycopyrrolate (Glycopyrrolate), 1 MG GT THREE TIMES A DAY, (Reported) Heparin Sod (Porcine) (Heparin Sodium*), 5,000 UNITS SUBQ EVERY 8 HOURS, (Reported) Heparin Sod (Porcine) (Heparin Sodium*), 5,000 UNITS SUBQ EVERY 12 HOURS, (Reported) Hydralazine Hcl* (Hydralazine Hcl*), 100 MG ORAL EVERY 8 HOURS, (Reported) Lisinopril* (Lisinopril*), 20 MG GT DAILY, (Reported) Magnesium Hydroxide* (Milk Of Magnesia*), 30 ML GT DAILY, (Reported) Meropenem (Merrem), 1 GM IV EVERY 12 HOURS Metoclopramide Hcl* (Reglan*), 5 MG GT EVERY 6 HOURS, (Reported) Metoprolol Tartrate* (Metoprolol Tartrate*), 50 MG GT EVERY 12 HOURS, (Reported) Minoxidil* (Loniten*), 2.5 MG GT DAILY, (Reported) Olanzapine (Zyprexa), 7.5 MG GT DAILY, (Reported) Polyethylene Glycol 3350* (Miralax*), 17 GM GT DAILY, (Reported) Risperidone* (Risperdal*), 2 MG GT DAILY, (Reported) Sennosides (Senna), 8.6 MG GT BEDTIME, (Reported) Sertraline Hcl* (Zoloft*), 100 MG GT DAILY, (Reported) Vancomycin In Dextrose,Iso-Osm (Vancomycin 750 Mg/150 Ml Bag), 750 MG IV DAILY Vitamin B Cmplx/Vit C/Folic AC (Nephro-Cyril Tablet), 1 TAB GT DAILY, (Reported) Zinc Sulfate (Zinc Sulfate), 220 MG GT DAILY, (Reported) Scheduled PRN Bisacodyl (Dulcolax), 10 MG RC DAILY PRN for Constipation, (Reported) Hydrocodone Bit/Acetaminophen 10-325* (Jupiter 10-325*), 1 TAB GT Q6H PRN for For Pain, (Reported) Hydrocodone Bit/Acetaminophen 10-325* (Jupiter 10-325*), 1 TAB GT Q6H PRN for For Pain, (Reported) Melatonin (Melatonin), 6 MG GT BEDTIME PRN for Insomnia, (Reported) Metoclopramide Hcl* (Metoclopramide Hcl*), 10 MG ORAL EVERY 6 HOURS PRN for Nausea & Vomiting, (Reported) Na Phos,M-B/Na Phos,Di-Ba* (Fleet Enema*), 133 ML RECTAL DAILY PRN for Constipation, (Reported) Oxycodone Hcl* (Oxycodone Hcl*), 5 MG GT Q4H PRN for For Pain, (Reported) Miscellaneous Medications Acetaminophen (Tylenol), 325 MG GT, (Reported) Albuterol Sulfate (Proventil Hfa), 6.7 GM IH, (Reported) Calcium Alginate (Calcium Alginate), 1 GM MC, (Reported) Clonidine (Clonidine), 1 EACH TD, (Reported) Gemfibrozil (Gemfibrozil*), 600 MG GT, (Reported) Ipratropium North (Atrovent Hfa), 12.9 GM IH, (Reported) Metolazone (Metolazone), 2.5 MG GT, (Reported) Patient History Limited by: medical condition History Provided By: Medical Record, PMD Healthcare decision maker Resuscitation status Advanced Directive on File Past Medical/Surgical History Past Medical/Surgical History: (1) Chronic respiratory failure (2) Ascites (3) Bacteremia (4) Hypernatremia (5) Pacemaker (6) Aortic dissection, thoracic (7) JAVIER (acute kidney injury) (8) Elevated alkaline phosphatase level (9) GT CLOGGED (10) Electrolyte imbalance (11) Renal failure (ARF), acute on chronic (12) Proteinuria (13) ACS (acute coronary syndrome) (14) Respiratory failure, acute and chronic (15) Abrasion of lip, initial encounter (16) COPD with exacerbation (17) HCAP (healthcare-associated pneumonia) (18) Hypokalemia (19) Dehydration (20) Acidosis (21) Anemia (22) Depression (23) Pancreatitis (24) Pleural effusion (25) Renal failure (26) Respiratory failure (27) Schizophrenia (28) Hypoxia (29) Sepsis (30) UTI (urinary tract infection) (31) Pneumonia (32) ARF (acute renal failure) (33) NSTEMI (non-ST elevated myocardial infarction) (34) Tracheostomy in place (35) Feeding by G-tube (36) JAVIER (acute kidney injury) (37) Acute encephalopathy (38) Sacral decubitus ulcer, stage IV Review of Systems Review of Symptoms General ROS: no weight loss or fever Psychological ROS: no depression or mood changes, no memory loss Ophthalmic ROS: no visual changes or eye irritation ENT ROS: no nasal congestion, hearing loss, dizziness Allergy and Immunology ROS: no allergic symptoms or urticaria Hematological and Lymphatic ROS: no swollen glands, unusual bleeding or bruising Endocrine ROS: no polyuria, polydipsia, weight changes, temperature intolerance Respiratory ROS: no cough, shortness of breath, or wheezing Cardiovascular ROS: no chest pain or dyspnea on exertion Gastrointestinal ROS: denies abdominal pain, bright red blood in stool. Musculoskeletal ROS: no myalgias or arthralgias Neurological ROS: no TIA or stroke symptoms Dermatological ROS: no new or changing skin lesions, rashes or pruritis limited Physical Exam Physical Exam General appearance: alert, cooperative, no distress, appears stated age Head: Normocephalic, without obvious abnormality, atraumatic Eyes: conjunctivae/corneas clear. PERRL, EOM's intact. Fundi benign Throat: Lips, mucosa, and tongue normal. Teeth and gums normal Neck: supple, symmetrical, trachea midline, no adenopathy, thyroid: not enlarged, symmetric, no tenderness/mass/nodules, no carotid bruit and no JVD. trach Lungs: clear to auscultation bilaterally Heart: regular rate and rhythm, S1, S2 normal, no murmur, click, rub or gallop Abdomen: soft, non-tender. Bowel sounds normal. No masses, no organomegaly. feeding Extremities: extremities normal, atraumatic, no cyanosis or edema Pulses: 2+ and symmetric Skin: Skin see below Neurologic: Grossly normal Last 24 Hour Vital Signs Date Time Temp Pulse Resp B/P (MAP) Pulse Ox O2 Delivery O2 Flow Rate FiO2 11/29/19 12:00 80 11/29/19 12:00 Mechanical Ventilator 11/29/19 12:00 97.5 67 20 145/63 (90) 100 11/29/19 11:10 78 30 80 11/29/19 08:16 151/74 11/29/19 08:00 100 11/29/19 08:00 97.5 60 28 151/74 (99) 100 11/29/19 08:00 Mechanical Ventilator 11/29/19 08:00 70 11/29/19 07:20 68 25 80 11/29/19 05:36 87 148/79 11/29/19 05:09 134/70 11/29/19 05:00 59 137/70 (92) 11/29/19 04:00 65 11/29/19 04:00 Mechanical Ventilator 11/29/19 04:00 96.4 66 28 160/75 (103) 98 11/29/19 03:02 70 26 100 11/29/19 00:00 69 11/29/19 00:00 100 11/29/19 00:00 97.2 80 24 152/69 (96) 94 11/29/19 00:00 Mechanical Ventilator 11/28/19 23:59 69 11/28/19 23:29 88 27 100 11/28/19 23:05 97.1 74 20 156/53 97 Mechanical Ventilator 100 11/28/19 22:00 97.1 74 20 156/53 97 Mechanical Ventilator 100 11/28/19 21:12 78 30 80 11/28/19 21:00 97.1 79 20 144/68 96 Mechanical Ventilator 80 11/28/19 20:40 79 15 Mechanical Ventilator 11/28/19 20:21 79 15 173/64 (100) 92 Mechanical Ventilator Intake and Output 11/28/19 11/29/19 19:00 07:00 Intake Total 110 ml Output Total 300 ml Balance -190 ml Intake Free Water 50 ml Tube Feeding 60 ml Output Urine Total 300 ml # Bowel Movements 2 Laboratory Tests Test 11/28/19 20:30 11/28/19 20:53 11/28/19 22:30 11/29/19 02:40 White Blood Count 31.6 K/UL (4.8-10.8) *H 29.2 K/UL (4.8-10.8) *H Red Blood Count 2.83 M/UL (4.20-5.40) L 2.88 M/UL (4.20-5.40) L Hemoglobin 8.1 G/DL (12.0-16.0) L 8.3 G/DL (12.0-16.0) L Hematocrit 26.2 % (37.0-47.0) L 24.9 % (37.0-47.0) L Mean Corpuscular Volume 93 FL (80-99) 87 FL (80-99) Mean Corpuscular Hemoglobin 28.6 PG (27.0-31.0) 28.7 PG (27.0-31.0) Mean Corpuscular Hemoglobin Concent 30.9 G/DL (32.0-36.0) L 33.2 G/DL (32.0-36.0) Red Cell Distribution Width 15.2 % (11.6-14.8) H 14.1 % (11.6-14.8) Platelet Count 420 K/UL (150-450) 325 K/UL (150-450) Mean Platelet Volume 5.0 FL (6.5-10.1) L 4.4 FL (6.5-10.1) L Neutrophils (%) (Auto) % (45.0-75.0) % (45.0-75.0) Lymphocytes (%) (Auto) % (20.0-45.0) % (20.0-45.0) Monocytes (%) (Auto) % (1.0-10.0) % (1.0-10.0) Eosinophils (%) (Auto) % (0.0-3.0) % (0.0-3.0) Basophils (%) (Auto) % (0.0-2.0) % (0.0-2.0) Differential Total Cells Counted 100 100 Neutrophils % (Manual) 92 % (45-75) H 96 % (45-75) H Lymphocytes % (Manual) 5 % (20-45) L 2 % (20-45) L Monocytes % (Manual) 3 % (1-10) 1 % (1-10) Eosinophils % (Manual) 0 % (0-3) 0 % (0-3) Basophils % (Manual) 0 % (0-2) 0 % (0-2) Band Neutrophils 0 % (0-8) 1 % (0-8) Platelet Estimate Increased H Adequate Platelet Morphology Normal Normal Hypochromasia 1+ 1+ Anisocytosis 1+ 1+ Prothrombin Time 13.8 SEC (9.30-11.50) H Prothromb Time International Ratio 1.3 (0.9-1.1) H Activated Partial Thromboplast Time 32 SEC (23-33) Urine Color Pale yellow Urine Appearance Cloudy Urine pH 8 (4.5-8.0) Urine Specific Davis 1.010 (1.005-1.035) Urine Protein 3+ (NEGATIVE) H Urine Glucose (UA) Negative (NEGATIVE) Urine Ketones Negative (NEGATIVE) Urine Blood 5+ (NEGATIVE) H Urine Nitrite Negative (NEGATIVE) Urine Bilirubin Negative (NEGATIVE) Urine Urobilinogen Normal MG/DL (0.0-1.0) Urine Leukocyte Esterase 3+ (NEGATIVE) H Urine RBC Tntc /HPF (0 - 2) H Urine WBC 30-40 /HPF (0 - 2) H Urine Squamous Epithelial Cells Moderate /LPF (NONE/OCC) H Urine Bacteria Many /HPF (NONE) H Sodium Level 129 MMOL/L (136-145) L 131 MMOL/L (136-145) L Potassium Level 4.1 MMOL/L (3.5-5.1) 4.3 MMOL/L (3.5-5.1) Chloride Level 94 MMOL/L (98-107) L 96 MMOL/L (98-107) L Carbon Dioxide Level 10 MMOL/L (21-32) L 16 MMOL/L (21-32) L Anion Gap 25 mmol/L (5-15) H 19 mmol/L (5-15) H Blood Urea Nitrogen 123 mg/dL (7-18) H 115 mg/dL (7-18) H Creatinine 3.8 MG/DL (0.55-1.30) H 3.4 MG/DL (0.55-1.30) H Estimat Glomerular Filtration Rate 12.8 mL/min (>60) 14.5 mL/min (>60) Glucose Level 168 MG/DL (74-106) H 128 MG/DL (74-106) H Lactic Acid Level 7.10 mmol/L (0.4-2.0) H 3.00 mmol/L (0.66-2.22) H Calcium Level 9.2 MG/DL (8.5-10.1) 9.1 MG/DL (8.5-10.1) Phosphorus Level 6.5 MG/DL (2.5-4.9) H 5.3 MG/DL (2.5-4.9) H Magnesium Level 3.5 MG/DL (1.8-2.4) H 3.2 MG/DL (1.8-2.4) H Total Bilirubin 0.4 MG/DL (0.2-1.0) Aspartate Amino Transf (AST/SGOT) 19 U/L (15-37) Alanine Aminotransferase (ALT/SGPT) < 6 U/L (12-78) L Alkaline Phosphatase 192 U/L (46-116) H Creatine Kinase MB 5.8 NG/ML (0.0-3.6) H Troponin I 0.123 ng/mL (0.000-0.056) Total Protein 6.6 G/DL (6.4-8.2) Albumin 2.4 G/DL (3.4-5.0) L 2.5 G/DL (3.4-5.0) L Globulin 4.2 g/dL Albumin/Globulin Ratio 0.6 (1.0-2.7) L Lipase 667 U/L (73-393) H Arterial Blood pH 7.145 (7.350-7.450) Arterial Blood Partial Pressure CO2 32.3 mmHg (35.0-45.0) L Arterial Blood Partial Pressure O2 95.3 mmHg (75.0-100.0) Arterial Blood HCO3 10.9 mmol/L (22.0-26.0) *L Arterial Blood Oxygen Saturation 94.9 % (95-100) L Arterial Blood Base Excess -16.7 (-2-2) *L Rojas Test Positive Free Thyroxine 0.55 NG/DL (0.76-1.46) L Test 11/29/19 09:20 11/29/19 10:59 11/29/19 13:15 Arterial Blood pH 7.350 (7.350-7.450) Arterial Blood Partial Pressure CO2 30.0 mmHg (35.0-45.0) L Arterial Blood Partial Pressure O2 95.0 mmHg (75.0-100.0) Arterial Blood HCO3 16.3 mmol/L (22.0-26.0) *L Arterial Blood Oxygen Saturation 97.0 % (95-100) Arterial Blood Base Excess -8.3 (-2-2) L Rojas Test Positive Lactic Acid Level 0.40 mmol/L (0.4-2.0) Albumin 2.5 G/DL (3.4-5.0) L Urine Random Sodium 40 mmol/L (20-110) Microbiology Date/Time Source Procedure Growth Status 11/28/19 20:40 Rectum Received 11/28/19 20:30 Nasopharynx SARS-CoV-2 RdRp Gene Assay - Final Complete Height (Feet): 5 Height (Inches): 4.00 Weight (Pounds): 150 Medications Current Medications Medications (Trade) Dose Ordered Sig/Penny Route PRN Reason Start Time Stop Time Status Last Admin Dose Admin Acetaminophen (Tylenol) 650 mg Q4H PRN GT Temp >100.5 11/29/19 04:30 12/29/19 04:29 Acetaminophen/ Hydrocodone Bitart (Jupiter ) 1 tab Q6H PRN GT For moderate pain 11/29/19 01:45 12/06/19 01:44 Albumin Human 100 ml @ 100 mls/hr Q8HR IV 11/29/19 14:00 12/01/19 06:59 Albuterol/ Ipratropium (Albuterol/ Ipratropium) 3 ml Q3H PRN HHN Shortness of Breath 11/29/19 01:30 12/04/19 01:29 Ascorbic Acid (Vitamin C) 500 mg DAILY GT 11/29/19 09:00 12/29/19 08:59 11/29/19 08:15 Clonidine HCl (Catapres TTS-1) 1 patch ONCE A WEEK TDERMAL 12/03/19 09:00 03/02/20 08:59 Diltiazem HCl (Cardizem Tab) 30 mg EVERY 8 HOURS ORAL 11/29/19 06:00 12/29/19 05:59 11/29/19 05:36 Epoetin Gelacio (Epoetin Gelacio-EPBX(NON ESRD)) 10,000 unit MON-MON-MON SUBQ 11/29/19 21:00 02/27/20 20:59 Gemfibrozil (Lopid) 600 mg TWICE A DAY GT 11/29/19 09:00 12/29/19 08:59 11/29/19 08:15 Gentamicin Sulfate 340 mg/ Sodium Chloride 118.5 ml @ 118.5 mls/ hr ONCE IVPB 11/29/19 16:00 11/29/19 18:00 Heparin Sodium (Porcine) (Heparin 5000 units/ml) 5,000 units EVERY 12 HOURS SUBQ 11/29/19 09:00 01/13/20 08:59 11/29/19 08:19 Hydralazine HCl (Apresoline) 25 mg Q6HR GT 11/29/19 18:00 02/27/20 17:59 Hydromorphone HCl (Dilaudid) 2 mg Q6H PRN GT Severe Pain (Pain Scale 7-10) 11/29/19 01:30 12/06/19 01:29 Meropenem 500 mg/ Sodium Chloride 55 ml @ 110 mls/hr Q12H IVPB 11/29/19 15:00 12/04/19 14:59 Metoclopramide HCl (Reglan) 5 mg Q6HR GT 11/29/19 06:00 12/29/19 05:59 11/29/19 11:54 Metolazone (Zaroxolyn) 2.5 mg QHS GT 11/29/19 21:00 12/29/19 20:59 Metolazone (Zaroxolyn) 5 mg DAILY GT 11/29/19 09:00 12/29/19 08:59 11/29/19 08:15 Polyethylene Glycol (Miralax) 17 gm BEDTIME ORAL 11/29/19 21:00 12/29/19 20:59 Risperidone (RisperDAL) 2 mg BEDTIME GT 11/29/19 21:00 01/13/20 20:59 Vancomycin HCl (Vanco pharmacy to dose) 1 ea DAILY PRN MISC Per rx protocol 11/29/19 01:15 12/29/19 01:14 Vitamin B Complex/ Vit C/Folic Acid (Nephrovite) 1 tab DAILY GT 11/29/19 09:00 12/29/19 08:59 11/29/19 08:16 Zinc Sulfate (Zinc Sulfate) 220 mg DAILY GT 11/29/19 09:00 02/27/20 08:59 11/29/19 08:16 Assessment/Plan Problem List: (1) Dehydration ICD Codes: E86.0 - Dehydration SNOMED: 78943263 (2) Acidosis ICD Codes: E87.2 - Acidosis SNOMED: 41382571, 928724129 (3) Anemia ICD Codes: D64.9 - Anemia, unspecified SNOMED: 345139542 (4) Depression ICD Codes: F32.9 - Major depressive disorder, single episode, unspecified SNOMED: 19741769, 655395136 (5) Pancreatitis Assessment & Plan: 49F leukocytosis, elevated lip, lft's noted septic. work up ongoing npo iv fluids iv abx imaging ordered DAILY ESTIMATED NEEDS: Needs based on Critical care, wound, 56.8kg 28-33 kcals/kg 5785-6234 total kcals 1.25-2 g protein/kg 71-114 g total protein Fluid per MD NUTRITION DIAGNOSIS: * Swallowing difficulty R/T dysphagia, respiratory status as evidenced by vent dep via trach, GT Dep. * Increase kcal and pro needs r/t wound healing and wasting as evidenced by stage 4 sacral wound. CURRENT TF:Nepro @ 40ml/hr x 20 hrs ENTERAL NUTRITION RECOMMENDATIONS: Nepro @ 45ml/hr x 20 hrs to provide 900ml, 1620kcal, 73g prot, 654ml free water * Increase TF to goal of 45ml/hr x20 hrs to better meet est needs * Water flush per MD * HOB over 30 degrees ADDITIONAL RECOMMENDATIONS: * Per SNF: HT=63", BQ=877icc -> rec calibrated bedscale wt (Bed reads 79.4kg) * Rec TF increase as above to better meet est needs * F/up w/ H&P * WC-> continue Vit C, ZnSO4, Nephrovite Add FRANKLIN in 4oz BID for wound care ICD Codes: K85.90 - Acute pancreatitis without necrosis or infection, unspecified SNOMED: 16102304 (6) Pleural effusion ICD Codes: J90 - Pleural effusion, not elsewhere classified SNOMED: 25983919 (7) Renal failure ICD Codes: N19 - Unspecified kidney failure SNOMED: 87151057, 893778112 (8) Respiratory failure ICD Codes: J96.90 - Respiratory failure, unspecified, unspecified whether with hypoxia or hypercapnia SNOMED: 541049929, 740760000 (9) Schizophrenia ICD Codes: F20.9 - Schizophrenia, unspecified SNOMED: 70539147, 046532363 (10) Hypoxia ICD Codes: R09.02 - Hypoxemia SNOMED: 152022218, 880439358 (11) Sepsis ICD Codes: A41.9 - Sepsis, unspecified organism SNOMED: 68446951 (12) UTI (urinary tract infection) ICD Codes: N39.0 - Urinary tract infection, site not specified SNOMED: 91438857, 738081870 (13) Pneumonia ICD Codes: J18.9 - Pneumonia, unspecified organism SNOMED: 897931357, 813821836 (14) ARF (acute renal failure) ICD Codes: N17.9 - Acute kidney failure, unspecified SNOMED: 16876491, 586994422 (15) NSTEMI (non-ST elevated myocardial infarction) ICD Codes: I21.4 - Non-ST elevation (NSTEMI) myocardial infarction SNOMED: 70193452 (16) Tracheostomy in place ICD Codes: Z93.0 - Tracheostomy status SNOMED: 283689131 (17) Feeding by G-tube ICD Codes: Z93.1 - Gastrostomy status SNOMED: 635801759, 483961300 (18) JAVIER (acute kidney injury) ICD Codes: N17.9 - Acute kidney failure, unspecified SNOMED: 7813922, 02321675 (19) Acute encephalopathy ICD Codes: G93.40 - Encephalopathy, unspecified SNOMED: 08176728, 344721894 (20) Sacral decubitus ulcer, stage IV Assessment & Plan: Pt presented on admission with Full thickness stage 4 Sacral Pressure injury which extends into R gluteal cheek. Base of wound is granular with bone exposure at base of sacrococcygeal.(L)10.5cm x (W06.5cm x (D)2.8cm , undermining 11-3 by 3.6cm @12 o'clock. small amt serosanguineous exudate noted . [place] epithelial along edges bordered by darker skin tone without erythema. Resolving Pressure injury L ischium. Base of wound is 95% pink epithelial ,5% noni at center base of wound. No exudate noted. Both heels are boggy with non-Blanching erythema. Sacral wound resolving. Wound is smaller in size with less depth and undermining (L)8.5cm x (W)5cm x (D)1.3cm, undermining clockwise 11-3 by 2.1cm @12o'clock. Base of wound is pink and moist, small area of bone exposure at base. Small amt. seropurulent exudate noted. No odor noted. Periwound without evidence of further skin breakdown noted. Wound Tx. are effective and continued as ordered. Al wound prevention protocols continued as care-planned. Tx.Plan: Cleanse sacral wound with Saline. Loosely pack with Hydrogel impregnated kerlix. Apply Moisture Barrier Paste periwound. Cover with Optifoam drsg Daily and prn. Apply Cavilon Skin Barrier to both heels and malleoli. Cover eachsite with Optifoam drsgs. Change every 7 days and prn. Reposition at least every 2hours or as tolerated. Off-load heels with pillow. APM/Maxwell Mattress overlay. ICD Codes: L89.154 - Pressure ulcer of sacral region, stage 4 SNOMED: 938530139, 458383596 (21) Chronic respiratory failure ICD Codes: J96.10 - Chronic respiratory failure, unspecified whether with hypoxia or hypercapnia SNOMED: 03034083 (22) Hypokalemia ICD Codes: E87.6 - Hypokalemia SNOMED: 91360604 (23) Ascites ICD Codes: R18.8 - Other ascites SNOMED: 419583582 (24) Bacteremia ICD Codes: R78.81 - Bacteremia SNOMED: 4333161 (25) Hypernatremia ICD Codes: E87.0 - Hyperosmolality and hypernatremia SNOMED: 191581189 (26) Proteinuria ICD Codes: R80.9 - Proteinuria, unspecified SNOMED: 40652099, 198686556 (27) Electrolyte imbalance ICD Codes: E87.8 - Other disorders of electrolyte and fluid balance, not elsewhere classified SNOMED: 316136466 (28) Pacemaker ICD Codes: Z95.0 - Presence of cardiac pacemaker SNOMED: 363312032 (29) ACS (acute coronary syndrome) ICD Codes: I24.9 - Acute ischemic heart disease, unspecified SNOMED: 682441826, 496323629 (30) Aortic dissection, thoracic ICD Codes: I71.01 - Dissection of thoracic aorta SNOMED: 865266972 (31) Respiratory failure, acute and chronic ICD Codes: J96.20 - Acute and chronic respiratory failure, unspecified whether with hypoxia or hypercapnia SNOMED: 16552938, 341554815 (32) JAVIER (acute kidney injury) ICD Codes: N17.9 - Acute kidney failure, unspecified SNOMED: 88101832 (33) Abrasion of lip, initial encounter ICD Codes: S00.511A - Abrasion of lip, initial encounter SNOMED: 761632268, 17935803 (34) COPD with exacerbation ICD Codes: J44.1 - Chronic obstructive pulmonary disease with (acute) exacerbation SNOMED: 681118946, 50690341 (35) Elevated alkaline phosphatase level ICD Codes: R74.8 - Abnormal levels of other serum enzymes SNOMED: 340203292 (36) Renal failure (ARF), acute on chronic ICD Codes: N17.9 - Acute kidney failure, unspecified; N18.9 - Chronic kidney disease, unspecified SNOMED: 944612006 (37) HCAP (healthcare-associated pneumonia) ICD Codes: J18.9 - Pneumonia, unspecified organism SNOMED: 875267019, 204692928 (38) Lane Alexis Nov 29, 2019 14:07
--- NOTE | 2019-11-29 15:35 | Brief Operative Note ---
Immediate Post Operative Note Operative Note Pre-op Diagnosis: pleural effusion Procedure: thoracentesis R Post-op Diagnosis: same as pre-op Surgeon: Eli David Anesthesia: local Specimen: yes - 50 ml fluid sent to lab Complications: none Fluids: none Implant(s) used?: No Armen David MD Nov 29, 2019 15:35
--- NOTE | 2019-11-29 15:48 | Diagnostic Imaging Report ---
Indications: Pleural effusion Technique: Ultrasound used to localize optimal puncture site. Sterile prepping and draping right chest. Local anesthesia with 1% lidocaine. Under real-time ultrasound guidance, puncture pleural space using thoracentesis needle. Stylet removed. Catheter placed to vacuum bottle suction. Total 450 milliliters of clear yellow fluid aspirated. 50 mL sent to the lab for analysis. Patient tolerated procedure well, without immediate complication. Findings: Followup sonography demonstrates small amount of residual pleural fluid Impression: Successful ultrasound-guided thoracentesis, yielding 450 milliliters of fluid
[2019-11-29] MEDS ORDERED: GENTAMICIN IVPB SCH (16:00)
[2019-11-29] MEDS ORDERED: NS IVPB SCH (16:00)
[2019-11-29] MEDS ORDERED: HYDROMORPHONE HC2 M1 GT (16:03)
[2019-11-29] MEDS ORDERED: TYLENOL325 MG ORAL (16:03)
[2019-11-29] MEDS: Meropenem 500 MG in NS 55 ML IVPB SCH (16:04)
[2019-11-29] MEDS ORDERED: EPOGEN4000 UNIT/ SUBQ (16:09)
[2019-11-29] MEDS ORDERED: HYDROGEL3000 GM TOPIC (16:13)
[2019-11-29] MEDS ORDERED: MULTIVITAMINS1 EAC8 GT (16:20)
[2019-11-29] MEDS ORDERED: NEPHROVITE1 TAB GT (16:22)
--- NOTE | 2019-11-29 16:33 | Diagnostic Imaging Report ---
Indication: Postthoracentesis Technique: One view of the chest Comparison: 11/28/2019 Findings: Previously demonstrated right pleural effusion is no longer evident radiographically, status post thoracentesis. No pneumothorax is demonstrated. There is persistent pleural fluid and parenchymal consolidation on the left. Tracheostomy, median sternotomy sutures are again demonstrated. Impression: Resolved right pleural effusion, status post thoracentesis. No radiographically evident complication
[2019-11-29] MEDS ORDERED: ATORVASTATIN CA10 MG GT (16:39)
--- NOTE | 2019-11-29 16:40 | Diagnostic Imaging Report ---
Indication: Shortness of breath Technique: One view of the chest Comparison: 10/24/2019 Findings: Patient is rotated to the left. Dialysis catheter has been removed. Tracheostomy remains. There is increased hazy opacity at the right lung. There is also increased retrocardiac consolidation and slightly increased left pleural effusion the heart size is normal. Impression: Increasing hazy right lung diffuse opacity. Suspect at least in part due to overlying soft tissue, but developing infiltrate also possible. Persistent and slightly increased left retrocardiac consolidation and slightly increased left pleural effusion
[2019-11-29] MEDS ORDERED: NOVOLOG100 UNITS1 SUBQ (16:42)
[2019-11-29] MEDS: HydrALAZINE 25mg tab GT SCH ×2 (17:33→23:15)
[2019-11-29] MEDS: Miralax 17gm pkt GT SCH (20:46)
[2019-11-29] MEDS: metOLazone 2.5 MG TAB GT SCH (20:49)
[2019-11-29] MEDS: Epoetin Alfa-EPBX (NON ESRD)10,000 unit/ml vial SUBQ SCH (20:49)
[2019-11-29] MEDS ORDERED: Miralax 17gm pkt ORAL SCH (21:00)
[2019-11-29] MEDS: dilTIAZem HCl 30mg tab GT SCH (21:06)
--- NOTE | 2019-11-29 22:15 | History and Physical Report ---
DATE OF ADMISSION: 11/28/2019 This is one of several admissions to [facility] of this 49-year-old lady because of loss of consciousness and progressive renal failure. HISTORY OF PRESENT ILLNESS: The patient was discharged several weeks ago from this institution in relatively precarious condition. She has progressive renal failure, but was able still to maintain her serum biochemistry without the assistance of hemodialysis. She remained stable for the next several weeks. However, in the last several days, she retained fluid and developed periorbital edema. She spiked fever, became unconscious and she was transferred by paramedics to [facility] ER and was admitted. PAST MEDICAL HISTORY: The patient developed respiratory failure several years ago, for which she had to be intubated and placed on mechanical ventilation. She was unable to be weaned, underwent tracheostomy and gastrostomy and referred to subacute unit. 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 She had previous admission to [facility]. She was awake, alert, afebrile, and hemodynamically stable, eating orally without difficulties and did not require hemodialysis on discharge. She does have stage IV sacral decubitus, that was the center of attention in the subacute unit, however, current sepsis and loss of consciousness is attributed initially to bacteremia secondary to sacral decubitus. ALLERGIES: No known drug allergy. MEDICATIONS: The patient is on clonidine patch, Catapres TTS 1 weekly, she is on diltiazem 30 mg in 48 hours. She was on metolazone 5 mg in the a.m. and 2.5 mg at bedtime, she is on epoetin 10,000 units Monday, Monday, and Monday, atorvastatin 10 mg daily, 825 mg q.6h. She is on Dilaudid 2 mg q.6h. via G-tube. She is on hydrocodone q.6h. p.r.n. for breakthrough pain. FAMILY HISTORY: Her mother is alive and in good health. She has no brothers and sisters and has no children. SOCIAL HISTORY: She is single. She was born in [place]. She has been on SSI for many years. Prior to the appearance of total disability, she was unemployed as well because of her psychiatric condition. HABITS: The patient did smoke 1 pack a day for more than 20 years. She denies drinking and denies the use of illicit drugs in previous admission. REVIEW OF SYSTEMS: The patient is unable to give any information regarding her state of health. PHYSICAL EXAMINATION: VITAL SIGNS: Blood pressure is 148/79, pulse is 87, respirations 25, and temperature 97.5. HEENT: Eyes were normal. Pupils were round, equal, and reactive to light. Sclerae were white. Conjunctivae were pink. Extraocular movements were normal. Temporal arteries were palpable bilaterally. There was bilateral temporal wasting. Visual cervantes to confrontation. Neglect sign could not be assessed. ENT, mucous membranes were dehydrated. Auditory canals were clear and tympanic membranes could not be visualized. Nasal cavity was not congested. Nasal septum was intact. Soft palate, pharynx and uvula could not be visualized. Tongue was dry, midline, and normally papillated. NECK: Supple. No goiter. No mass. No lymphadenopathy. There was no JVD. No bruits. Carotid upstroke was 2+. Tracheostomy site is clean. LUNGS: Clear without rhonchi, rales, or wheezing. There is decreased breath sounds in both bases, more on the right than on the left. HEART: PMI was in fifth left intercostal space in midclavicular line. There was normal S1 and normal S2. There was no murmur. No arrhythmia. No S3. No S4. No pericardial rub. There was sinus rhythm on monitor. ABDOMEN: Soft and nontender without organomegaly. There were no masses palpable. Normal bowel sounds without bruits. There was no guarding. No rebound tenderness. No ascites. No hernia. No CVA tenderness. Liver span was 8 cm, mostly nontender. EXTREMITIES: No cyanosis, no clubbing, and no edema. Extremities were warm. NEUROLOGICAL: Reflexes in biceps, triceps, and brachioradialis were present. Patellar retinaculum were present. Plantars were in flexion. Cranial nerves II to XII were to symmetric and equal. Cerebellar function, there was no tremor. No nystagmus. No extrapyramidal rigidity. Sensory exam to pinprick, cotton touch, position, and motor strength could not be assessed because of the patient's clinical condition. LABORATORY AND DIAGNOSTIC DATA: Hemoglobin is 8.1, hematocrit 26.2 with MCV of 93, WBC of 21.6, and platelets of 420. Her BUN and creatinine is 115 and 3.4 respectively. Her sodium is 131, potassium 4.3, chloride 96, CO2 is 16. Lactic acid in the ER was 7.10 and upon admission was 3.0. Her phosphorus was 5.3 and magnesium 3.2. Her albumin was 2.5 and free T4 was 0.55. Her COVID-19 rapid test was negative. Chest x-ray was done in October and revealed bilateral pleural effusion and retrocardiac consolidation. IMPRESSION: The patient has progressive sepsis associated with liver failure and altered mental status. PLAN: Cultures were taken in the emergency room. The patient was started on vancomycin 1 g IV piggyback q.24 hours and pharmacy will . In addition, the patient will be started on cefepime 1 g IV piggyback q.12 hours, which was the antibiotic that she received on the day of discharge. Multiple consultants were called to assist in the management of this case. Pulmonary interior design consultant, Nephrology interior design consultant, Infectious Disease interior design consultant were already called. Repeat laboratory tests will be done in the a.m. Lucas Dong M.D. DR: Benita JOB#: [id number] CC:
[2019-11-30] VITALS: BP_SYST 114; BP_SYST 120; BP_DIAS 57; BP_DIAS 60
[2019-11-30] MEDS: Meropenem 500 MG in NS 55 ML IVPB SCH ×2 (02:04→15:35)
[2019-11-30 04:00] VITALS: BP 141/76
[2019-11-30] MEDS: dilTIAZem HCl 30mg tab GT SCH ×3 (05:10→21:03)
[2019-11-30] MEDS: HydrALAZINE 25mg tab GT SCH ×3 (05:53→17:20)
[2019-11-30 08:00] VITALS: BP 138/64
[2019-11-30 08:12] LABS: MEAN CORPUSCULAR VOLUME 84 FL (80-99); PLATELET COUNT 331 K/UL (150-450); RED BLOOD COUNT 2.37 M/UL (4.20-5.40); RED CELL DISTRIBUTION WIDTH 14.1 % (11.6-14.8); WHITE BLOOD COUNT 16.3 K/UL (4.8-10.8)
[2019-11-30 08:21] LABS: HEMOGLOBIN 6.7 G/DL (12.0-16.0)
[2019-11-30 08:26] LABS: AMMONIA 52 umol/L (11-32)
[2019-11-30 08:38] LABS: GAMMA GLUTAMYL TRANSPEPTIDASE 29 U/L (5-85); LACTATE DEHYDROGENASE 150 U/L (81-234); PHOSPHORUS 4.6 MG/DL (2.5-4.9)
[2019-11-30 08:40] LABS: % IRON SATURATION 7 % (15-50); IRON 13 ug/dL (50-175); TOTAL IRON BINDING CAPACITY 188 ug/dL (250-450)
[2019-11-30 08:53] LABS: ALANINE AMINOTRANSFERASE 13 U/L (12-78); ALBUMIN 3.1 G/DL (3.4-5.0); ALBUMIN/GLOBULIN RATIO 0.9 (1.0-2.7); ALKALINE PHOSPHATASE 135 U/L (46-116); ANION GAP 17 mmol/L (5-15); ASPARTATE AMINO TRANSFERASE 21 U/L (15-37); BILIRUBIN,TOTAL 0.4 MG/DL (0.2-1.0); BLOOD UREA NITROGEN 122 mg/dL (7-18); CALCIUM 8.5 MG/DL (8.5-10.1); CARBON DIOXIDE 16 MMOL/L (21-32); CHLORIDE 98 MMOL/L (98-107); CHOLESTEROL 61 MG/DL (< 200); CREATININE 3.2 MG/DL (0.55-1.30); FERRITIN 923 NG/ML (8-388); HDL CHOLESTEROL 19 MG/DL (40-60); POTASSIUM 3.8 MMOL/L (3.5-5.1); SODIUM 131 MMOL/L (136-145); TRIGLYCERIDES 59 MG/DL (30-150)
[2019-11-30] MEDS: Heparin 5000 units/ml inj SUBQ SCH ×2 (09:00→20:55)
[2019-11-30] MEDS ORDERED: NS 275ml ONE (09:10)
[2019-11-30] MEDS ORDERED: Tubing IV Secondary IV ONE (09:10)
[2019-11-30] MEDS ORDERED: NS 500ML ONE (09:10)
[2019-11-30] MEDS: Zinc Sulfate 220mg GT SCH (10:17)
[2019-11-30] MEDS: Nephrovite tab (Rena-Vite) GT SCH (10:17)
[2019-11-30] MEDS: Ascorbic Acid 500mg tab GT SCH (10:18)
[2019-11-30] MEDS: Acetaminophen 650mg/20.3ml GT PRN ×3 (10:41→23:31)
--- NOTE | 2019-11-30 11:01 | Infectious Diseases Prog Note ---
Assessment/Plan Assessment: COVID19 neg x1 (11/27 rapid COVID PCR neg) Sepsis Probable U TI -u/a wbc 30-40, nit neg, leuk +3; ucx p Pl effusion - 11/28 Sp [place] (w: 169, PMN: 2%, L: 49% , LDH: P: ) PNA -CXR: official report pending, prelim per ER doc: Infiltrate of the right upper lobe and right lower lobe R/o probable bacteremia -Bcx p Low grade fever Leukocytosis, improving Acute on chronic hypoxic resp failure JAVIER on CKD- on previous admission Sep-Oct 2019 required HD for short period hx of Recent MDR PnA, sp rx 10/15/19 sp cx ESBL P. mirabilis, MDR P.a. ( S only to Gent) 09/22 Resp cx + MDR PsA (S-gent; I-colistin; R-levofloxacin, Zosyn, angelo) 09/16/19 Sp cx ESBL P. mirablis hx of recent UTI 09/15/19 u/a wbc tnct, nit neg, leuk +3; ucx >100k MDR P. stuarti (S Ceftriaxone, Meropenem) 10/07 u/a wbc tnct, nit neg, leuk ; ucx >100k VRE 10/15/19 u/a wbc tnct; ucx >100k ESBL P. stuarti (S ertapenem, aztreonam) H/o PPM site (pocket) infection and pocket abscess 2ry to S. epi-11/2018, sp >6weeks IV vancomycin 11/27 SP ABBIE: no evidence for vegetation on any of the valves 11/26/18 SP PPM removal: OR findings:The fibrous capsule enclosing the generator was then opened and there was a [id number] amount of yellowish fluid drainage. The generator was then removed.Atrial and ventricular leads were detached. The necrotic tissue of the pocket was then removed and the pocket was flushed with an antibiotic solution. Capsule, wound tissue and lead tip cx: Neg 2d echo: no vegetation seen US chest: 4.6 x 3.4 x 0.9 cm hypoechoic/anechoic area overlying left chest pacemaker power pack. This could represent either a discrete fluid collection or a focal area of very edematous tissue. Infected fluid pocket also possible. 10/6 Bcx 3/4 S. epi; 11/20 Bcx neg; 11/24 Bcx Neg; 11/27 Bcx Neg CAD s/p CABG GERD/gastritis Afib HTN Dysphagia sp GT Aortic dissection s/p repair 2018, S/p PPM Parkinson's Disease Schizophrenia Anxiety COPD Chronic resp failure s/p trach Hx of tracheal bleeding [facility] resident ([facility]) Plan: -Continue empiric IV Vancomycin #3 -Meropenem # 2 11/28 Sp Cefepime #2 and IV Gentamycin x1 -f/u cx -Monitor CBC/CMP, temperatures -sp cx, influenza ag, legionella ag urine -PEG/trach care -aspiration precautions -COVID19 isolation and testing; send 2nd COVID -for thoracentesis- send fluid analysis and culture - CT A/P eval of leukocytosis and fever Subjective Allergies: Coded Allergies: No Known Allergies (Unverified , 10/10/17) sp low grade fever WBC improving Objective Last 24 Hour Vital Signs Date Time Temp Pulse Resp B/P (MAP) Pulse Ox O2 Delivery O2 Flow Rate FiO2 11/30/19 08:00 80 11/30/19 08:00 100.6 80 16 138/64 (88) 99 11/30/19 08:00 80 11/30/19 07:01 83 23 70 11/30/19 05:53 141/69 11/30/19 05:10 77 147/72 11/30/19 04:00 97.9 78 22 141/76 (97) 98 11/30/19 04:00 Mechanical Ventilator 11/30/19 04:00 80 11/30/19 03:32 71 11/30/19 03:21 75 21 70 11/30/19 00:00 80 11/30/19 00:00 98.1 67 20 120/60 (80) 97 11/30/19 00:00 Mechanical Ventilator 11/29/19 23:58 75 22 70 11/29/19 23:39 70 11/29/19 23:15 129/62 11/29/19 21:06 70 130/68 11/29/19 20:00 Mechanical Ventilator 11/29/19 20:00 98.0 69 20 114/57 (76) 98 11/29/19 20:00 80 11/29/19 19:36 69 24 70 10/16/20 19:25 63 11/29/19 17:33 146/76 11/29/19 16:00 67 11/29/19 16:00 80 11/29/19 16:00 Mechanical Ventilator 11/29/19 16:00 98.1 78 20 146/76 (99) 100 11/29/19 15:30 71 27 70 11/29/19 12:00 80 11/29/19 12:00 Mechanical Ventilator 11/29/19 12:00 97.5 67 20 145/63 (90) 100 11/29/19 12:00 72 11/29/19 11:10 78 30 80 Height (Feet): 5 Height (Inches): 4.00 Weight (Pounds): 150 General Appearance: no acute distress HEENT: atraumatic Respiratory/Chest: no respiratory distress Cardiovascular: regular rhythm Microbiology Date/Time Source Procedure Growth Status 11/29/19 17:30 Sputum Gram Stain - Final Resulted 11/29/19 17:30 Sputum Sputum Culture - Preliminary NO GROWTH Resulted 11/29/19 17:05 Nasopharynx - Final Complete 11/29/19 17:05 Nasopharynx - Final Complete 11/29/19 16:30 Nasopharynx SARS-CoV-2 RdRp Gene Assay - Final Complete 11/29/19 13:55 Pleural Fluid Gram Stain - Final Resulted 11/29/19 13:55 Pleural Fluid Body Fluid Culture - Preliminary NO GROWTH Resulted 11/28/19 20:40 Rectum VRE Culture - Final Enterococcus Faecalis - Vre Enterococcus Faecium - Vre Complete 11/28/19 20:40 Nasal Nares MRSA Culture - Final Staphylococcus Aureus - Mrsa Complete 11/28/19 20:30 Urine,Clean Catch Urine Culture - Preliminary Gram Negative Arnaud Resulted 11/28/19 20:30 Nasopharynx SARS-CoV-2 RdRp Gene Assay - Final Complete 11/28/19 20:30 Blood Blood Culture - Preliminary NO GROWTH AFTER 24 HOURS Resulted 11/28/19 20:15 Blood Blood Culture - Preliminary NO GROWTH AFTER 24 HOURS Resulted Laboratory Tests Test 11/29/19 10:59 11/29/19 13:15 11/29/19 13:55 11/29/19 16:20 Lactic Acid Level 0.40 mmol/L (0.4-2.0) Albumin 2.5 G/DL (3.4-5.0) L Urine Random Sodium 40 mmol/L (20-110) Body Fluid Source Pleural Body Fluid Volume 24 mL Body Fluid Appearance Hazy (Clear) Body Fluid pH 8.0 Body Fluid RBC 30 /CUMM Body Fluid Total Nucleated Cells 196 /CUMM Body Fluid Polynuclear WBCs (%) 2 % Body Fluid Mononuclear WBCs (%) 49 % Body Fluid Mesothelial Cells (%) 49 % Body Fluid Glucose Pending Body Fluid Total Protein Pending Body Fluid Lactate Dehydrogenase Pending Body Fluid Comment Urine Legionella Antigen Pending Test 11/30/19 07:30 White Blood Count 16.3 K/UL (4.8-10.8) H Red Blood Count 2.37 M/UL (4.20-5.40) L Hemoglobin 6.7 G/DL (12.0-16.0) *L Hematocrit 20.0 % (37.0-47.0) L Mean Corpuscular Volume 84 FL (80-99) Mean Corpuscular Hemoglobin 28.5 PG (27.0-31.0) Mean Corpuscular Hemoglobin Concent 33.7 G/DL (32.0-36.0) Red Cell Distribution Width 14.1 % (11.6-14.8) Platelet Count 331 K/UL (150-450) Mean Platelet Volume 4.8 FL (6.5-10.1) L Neutrophils (%) (Auto) % (45.0-75.0) Lymphocytes (%) (Auto) % (20.0-45.0) Monocytes (%) (Auto) % (1.0-10.0) Eosinophils (%) (Auto) % (0.0-3.0) Basophils (%) (Auto) % (0.0-2.0) Differential Total Cells Counted 100 Neutrophils % (Manual) 91 % (45-75) H Lymphocytes % (Manual) 8 % (20-45) L Monocytes % (Manual) 1 % (1-10) Eosinophils % (Manual) 0 % (0-3) Basophils % (Manual) 0 % (0-2) Band Neutrophils 0 % (0-8) Platelet Estimate Adequate Platelet Morphology Normal Hypochromasia 2+ Anisocytosis 1+ Sodium Level 131 MMOL/L (136-145) L Potassium Level 3.8 MMOL/L (3.5-5.1) Chloride Level 98 MMOL/L (98-107) Carbon Dioxide Level 16 MMOL/L (21-32) L Anion Gap 17 mmol/L (5-15) H Blood Urea Nitrogen 122 mg/dL (7-18) H Creatinine 3.2 MG/DL (0.55-1.30) H Estimat Glomerular Filtration Rate 15.5 mL/min (>60) Glucose Level 74 MG/DL (74-106) Hemoglobin A1c 4.1 % (4.3-6.0) L Uric Acid 7.3 MG/DL (2.6-7.2) H Calcium Level 8.5 MG/DL (8.5-10.1) Phosphorus Level 4.6 MG/DL (2.5-4.9) Magnesium Level 3.2 MG/DL (1.8-2.4) H Iron Level 13 ug/dL (50-175) L Total Iron Binding Capacity 188 ug/dL (250-450) L Percent Iron Saturation 7 % (15-50) L Unsaturated Iron Binding 175 ug/dL (112-346) Ferritin 923 NG/ML (8-388) H Total Bilirubin 0.4 MG/DL (0.2-1.0) Gamma Glutamyl Transpeptidase 29 U/L (5-85) Aspartate Amino Transf (AST/SGOT) 21 U/L (15-37) Alanine Aminotransferase (ALT/SGPT) 13 U/L (12-78) Alkaline Phosphatase 135 U/L (46-116) H Ammonia 52 umol/L (11-32) H Lactate Dehydrogenase 150 U/L (81-234) Troponin I 0.346 ng/mL (0.000-0.056) C-Reactive Protein, Quantitative 7.5 mg/dL (0.00-0.90) H Pro-B-Type Natriuretic Peptide > 53951 pg/mL (0-125) H Total Protein 6.7 G/DL (6.4-8.2) Albumin 3.1 G/DL (3.4-5.0) L Globulin 3.6 g/dL Albumin/Globulin Ratio 0.9 (1.0-2.7) L Triglycerides Level 59 MG/DL (30-150) Cholesterol Level 61 MG/DL (< 200) LDL Cholesterol 37 mg/dL (<100) HDL Cholesterol 19 MG/DL (40-60) L Cholesterol/HDL Ratio 3.2 (3.3-4.4) L Lipase > 2000 U/L (73-393) H Vitamin B12 Level 1744 PG/ML (193-986) H Folate 65.9 NG/ML (8.6-58.9) H Thyroid Stimulating Hormone (TSH) 0.995 uiU/mL (0.358-3.740) Random Vancomycin Level 11.3 ug/mL Mycoplasma pneumoniae IgM Ab Titer Pending Current Medications Medications (Trade) Dose Ordered Sig/Penny Route PRN Reason Start Time Stop Time Status Last Admin Dose Admin Acetaminophen (Tylenol) 650 mg Q4H PRN GT Temp >100.5 11/29/19 04:30 12/29/19 04:29 11/30/19 10:41 Acetaminophen/ Hydrocodone Bitart ([place] ) 1 tab Q4H PRN GT For moderate pain 11/29/19 15:30 12/06/19 15:29 Albumin Human 100 ml @ 100 mls/hr Q8HR IV 11/29/19 14:00 12/01/19 06:59 11/30/19 05:09 Albuterol/ Ipratropium (Albuterol/ Ipratropium) 3 ml Q3H PRN HHN Shortness of Breath 11/29/19 01:30 12/04/19 01:29 Ascorbic Acid (Vitamin C) 500 mg DAILY GT 11/29/19 09:00 12/29/19 08:59 11/30/19 10:18 Barium Sulfate (Readi-Cat 2) 450 ml NOW PRN ORAL Radiology Procedure 11/29/19 14:15 12/01/19 14:14 Clonidine HCl (Catapres TTS-1) 1 patch ONCE A WEEK TDERMAL 12/03/19 09:00 03/02/20 08:59 Diltiazem HCl (Cardizem Tab) 30 mg EVERY 8 HOURS GT 11/29/19 22:00 12/29/19 05:59 11/30/19 05:10 Epoetin Gelacio (Epoetin Gelacio-EPBX(NON ESRD)) 10,000 unit MON-MON-MON SUBQ 11/29/19 21:00 02/27/20 20:59 11/29/19 20:49 Gemfibrozil (Lopid) 600 mg TWICE A DAY GT 11/29/19 09:00 12/29/19 08:59 11/30/19 10:18 Heparin Sodium (Porcine) (Heparin 5000 units/ml) 5,000 units EVERY 12 HOURS SUBQ 11/29/19 09:00 01/13/20 08:59 11/29/19 20:50 Hydralazine HCl (Apresoline) 25 mg Q6HR GT 11/29/19 18:00 02/27/20 17:59 11/30/19 05:53 Hydromorphone HCl (Dilaudid) 2 mg Q6H PRN GT Severe Pain (Pain Scale 7-10) 11/29/19 01:30 12/06/19 01:29 Meropenem 500 mg/ Sodium Chloride 55 ml @ 110 mls/hr Q12H IVPB 11/29/19 15:00 12/04/19 14:59 11/30/19 02:04 Metoclopramide HCl (Reglan) 5 mg Q6HR GT 11/29/19 06:00 12/29/19 05:59 11/30/19 05:09 Metolazone (Zaroxolyn) 2.5 mg QHS GT 11/29/19 21:00 12/29/19 20:59 11/29/19 20:49 Metolazone (Zaroxolyn) 5 mg DAILY GT 11/29/19 09:00 12/29/19 08:59 11/30/19 10:17 Polyethylene Glycol (Miralax) 17 gm BEDTIME GT 11/29/19 21:00 12/29/19 20:59 Vancomycin HCl (Vanco pharmacy to dose) 1 ea DAILY PRN MISC Per rx protocol 11/29/19 01:15 12/29/19 01:14 Vancomycin HCl 1 gm/Dextrose 275 ml @ 183.708 mls/hr ONCE ONCE IVPB 11/30/19 15:00 11/30/19 16:29 Vitamin B Complex/ Vit C/Folic Acid (Nephrovite) 1 tab DAILY GT 11/29/19 09:00 12/29/19 08:59 11/30/19 10:17 Zinc Sulfate (Zinc Sulfate) 220 mg DAILY GT 11/29/19 09:00 02/27/20 08:59 11/30/19 10:17 Fabricio Ruiz MD Nov 30, 2019 11:00
--- NOTE | 2019-11-30 11:29 | Surgery Progress Note ---
Surgery Progress Note Subjective Additional Comments leukocytosis improving anemia comfortable appearing thora with 50cc sent to path micro Objective Last 24 Hour Vital Signs Date Time Temp Pulse Resp B/P (MAP) Pulse Ox O2 Delivery O2 Flow Rate FiO2 11/30/19 08:00 80 11/30/19 08:00 Mechanical Ventilator 11/30/19 08:00 100.6 80 16 138/64 (88) 99 11/30/19 08:00 80 11/30/19 07:01 83 23 70 11/30/19 05:53 141/69 11/30/19 05:10 77 147/72 11/30/19 04:00 97.9 78 22 141/76 (97) 98 11/30/19 04:00 Mechanical Ventilator 11/30/19 04:00 80 11/30/19 03:32 71 11/30/19 03:21 75 21 70 11/30/19 00:00 80 11/30/19 00:00 98.1 67 20 120/60 (80) 97 11/30/19 00:00 Mechanical Ventilator 11/29/19 23:58 75 22 70 11/29/19 23:39 70 11/29/19 23:15 129/62 11/29/19 21:06 70 130/68 11/29/19 20:00 Mechanical Ventilator 11/29/19 20:00 98.0 69 20 114/57 (76) 98 11/29/19 20:00 80 11/29/19 19:36 69 24 70 11/29/19 19:25 63 11/29/19 17:33 146/76 11/29/19 16:00 67 11/29/19 16:00 80 11/29/19 16:00 Mechanical Ventilator 11/29/19 16:00 98.1 78 20 146/76 (99) 100 11/29/19 15:30 71 27 70 11/29/19 12:00 80 11/29/19 12:00 Mechanical Ventilator 11/29/19 12:00 97.5 67 20 145/63 (90) 100 11/29/19 12:00 72 I&O Intake and Output 11/29/19 11/30/19 19:00 07:00 Intake Total 290 ml 345 ml Output Total 1250 ml 850 ml Balance -960 ml -505 ml Intake Free Water 160 ml 50 ml IV Total 255 ml Tube Feeding 130 ml 40 ml Output Urine Total 800 ml 850 ml Other 450 ml # Bowel Movements 1 Dressing: saturated Cardiovascular: RSR Respiratory: decreased breath sounds Abdomen: soft, non-tender, present bowel sounds Extremities: edema, no tenderness, no cyanosis Laboratory Tests Test 11/29/19 13:15 11/29/19 13:55 11/29/19 16:20 11/30/19 07:30 Urine Random Sodium 40 mmol/L (20-110) Body Fluid Source Pleural Body Fluid Volume 24 mL Body Fluid Appearance Hazy (Clear) Body Fluid pH 8.0 Body Fluid RBC 30 /CUMM Body Fluid Total Nucleated Cells 196 /CUMM Body Fluid Polynuclear WBCs (%) 2 % Body Fluid Mononuclear WBCs (%) 49 % Body Fluid Mesothelial Cells (%) 49 % Body Fluid Glucose Pending Body Fluid Total Protein Pending Body Fluid Lactate Dehydrogenase Pending Body Fluid Comment Urine Legionella Antigen Pending White Blood Count 16.3 K/UL (4.8-10.8) H Red Blood Count 2.37 M/UL (4.20-5.40) L Hemoglobin 6.7 G/DL (12.0-16.0) *L Hematocrit 20.0 % (37.0-47.0) L Mean Corpuscular Volume 84 FL (80-99) Mean Corpuscular Hemoglobin 28.5 PG (27.0-31.0) Mean Corpuscular Hemoglobin Concent 33.7 G/DL (32.0-36.0) Red Cell Distribution Width 14.1 % (11.6-14.8) Platelet Count 331 K/UL (150-450) Mean Platelet Volume 4.8 FL (6.5-10.1) L Neutrophils (%) (Auto) % (45.0-75.0) Lymphocytes (%) (Auto) % (20.0-45.0) Monocytes (%) (Auto) % (1.0-10.0) Eosinophils (%) (Auto) % (0.0-3.0) Basophils (%) (Auto) % (0.0-2.0) Differential Total Cells Counted 100 Neutrophils % (Manual) 91 % (45-75) H Lymphocytes % (Manual) 8 % (20-45) L Monocytes % (Manual) 1 % (1-10) Eosinophils % (Manual) 0 % (0-3) Basophils % (Manual) 0 % (0-2) Band Neutrophils 0 % (0-8) Platelet Estimate Adequate Platelet Morphology Normal Hypochromasia 2+ Anisocytosis 1+ Sodium Level 131 MMOL/L (136-145) L Potassium Level 3.8 MMOL/L (3.5-5.1) Chloride Level 98 MMOL/L (98-107) Carbon Dioxide Level 16 MMOL/L (21-32) L Anion Gap 17 mmol/L (5-15) H Blood Urea Nitrogen 122 mg/dL (7-18) H Creatinine 3.2 MG/DL (0.55-1.30) H Estimat Glomerular Filtration Rate 15.5 mL/min (>60) Glucose Level 74 MG/DL (74-106) Hemoglobin A1c 4.1 % (4.3-6.0) L Uric Acid 7.3 MG/DL (2.6-7.2) H Calcium Level 8.5 MG/DL (8.5-10.1) Phosphorus Level 4.6 MG/DL (2.5-4.9) Magnesium Level 3.2 MG/DL (1.8-2.4) H Iron Level 13 ug/dL (50-175) L Total Iron Binding Capacity 188 ug/dL (250-450) L Percent Iron Saturation 7 % (15-50) L Unsaturated Iron Binding 175 ug/dL (112-346) Ferritin 923 NG/ML (8-388) H Total Bilirubin 0.4 MG/DL (0.2-1.0) Gamma Glutamyl Transpeptidase 29 U/L (5-85) Aspartate Amino Transf (AST/SGOT) 21 U/L (15-37) Alanine Aminotransferase (ALT/SGPT) 13 U/L (12-78) Alkaline Phosphatase 135 U/L (46-116) H Ammonia 52 umol/L (11-32) H Lactate Dehydrogenase 150 U/L (81-234) Troponin I 0.346 ng/mL (0.000-0.056) C-Reactive Protein, Quantitative 7.5 mg/dL (0.00-0.90) H Pro-B-Type Natriuretic Peptide > 32959 pg/mL (0-125) H Total Protein 6.7 G/DL (6.4-8.2) Albumin 3.1 G/DL (3.4-5.0) L Globulin 3.6 g/dL Albumin/Globulin Ratio 0.9 (1.0-2.7) L Triglycerides Level 59 MG/DL (30-150) Cholesterol Level 61 MG/DL (< 200) LDL Cholesterol 37 mg/dL (<100) HDL Cholesterol 19 MG/DL (40-60) L Cholesterol/HDL Ratio 3.2 (3.3-4.4) L Lipase > 2000 U/L (73-393) H Vitamin B12 Level 1744 PG/ML (193-986) H Folate 65.9 NG/ML (8.6-58.9) H Thyroid Stimulating Hormone (TSH) 0.995 uiU/mL (0.358-3.740) Random Vancomycin Level 11.3 ug/mL Mycoplasma pneumoniae IgM Ab Titer Pending Plan Problems: (1) Dehydration (2) Acidosis (3) Anemia (4) Depression (5) Pancreatitis Assessment & Plan: 49F leukocytosis, elevated lip, lft's noted septic. work up ongoing npo iv fluids iv abx imaging ordered lipase worsening npo pending CT DAILY ESTIMATED NEEDS: Needs based on Critical care, wound, 56.8kg 28-33 kcals/kg 2899-6831 total kcals 1.25-2 g protein/kg 71-114 g total protein Fluid per MD NUTRITION DIAGNOSIS: * Swallowing difficulty R/T dysphagia, respiratory status as evidenced by vent dep via trach, GT Dep. * Increase kcal and pro needs r/t wound healing and wasting as evidenced by stage 4 sacral wound. CURRENT TF:Nepro @ 40ml/hr x 20 hrs ENTERAL NUTRITION RECOMMENDATIONS: Nepro @ 45ml/hr x 20 hrs to provide 900ml, 1620kcal, 73g prot, 654ml free water * Increase TF to goal of 45ml/hr x20 hrs to better meet est needs * Water flush per MD * HOB over 30 degrees ADDITIONAL RECOMMENDATIONS: * Per SNF: HT=63", JX=[id number] -> rec calibrated bedscale wt (Bed reads 79.4kg) * Rec TF increase as above to better meet est needs * F/up w/ H&P * WC-> continue Vit C, ZnSO4, Nephrovite Add FRANKLIN in 4oz BID for wound care (6) Pleural effusion (7) Renal failure (8) Respiratory failure (9) Schizophrenia (10) Hypoxia (11) Sepsis (12) UTI (urinary tract infection) (13) Pneumonia (14) ARF (acute renal failure) (15) NSTEMI (non-ST elevated myocardial infarction) (16) Tracheostomy in place (17) Feeding by G-tube (18) JAVIER (acute kidney injury) (19) Acute encephalopathy (20) Sacral decubitus ulcer, stage IV Assessment & Plan: Pt presented on admission with Full thickness stage 4 Sacral Pressure injury which extends into R gluteal cheek. Base of wound is granular with bone exposure at base of sacrococcygeal.(L)10.5cm x (W06.5cm x (D)2.8cm , undermining 11-3 by 3.6cm @12 o'clock. small amt serosanguineous exudate noted . [place] epithelial along edges bordered by darker skin tone without erythema. Resolving Pressure injury L ischium. Base of wound is 95% pink epithelial ,5% noni at center base of wound. No exudate noted. Both heels are boggy with non-Blanching erythema. Sacral wound resolving. Wound is smaller in size with less depth and undermining (L)8.5cm x (W)5cm x (D)1.3cm, undermining clockwise 11-3 by 2.1cm @12o'clock. Base of wound is pink and moist, small area of bone exposure at base. Small amt. seropurulent exudate noted. No odor noted. Periwound without evidence of further skin breakdown noted. Wound Tx. are effective and continued as ordered. Al wound prevention protocols continued as care-planned. Tx.Plan: Cleanse sacral wound with Saline. Loosely pack with Hydrogel impregnated kerlix. Apply Moisture Barrier Paste periwound. Cover with Optifoam drsg Daily and prn. Apply Cavilon Skin Barrier to both heels and malleoli. Cover eachsite with Optifoam drsgs. Change every 7 days and prn. Reposition at least every 2hours or as tolerated. Off-load heels with pillow. APM/Maxwell Mattress overlay. (21) Chronic respiratory failure (22) Hypokalemia (23) Ascites (24) Bacteremia (25) Hypernatremia (26) Proteinuria (27) Electrolyte imbalance (28) Pacemaker (29) ACS (acute coronary syndrome) (30) Aortic dissection, thoracic (31) Respiratory failure, acute and chronic (32) JAVIER (acute kidney injury) (33) Abrasion of lip, initial encounter (34) COPD with exacerbation (35) Elevated alkaline phosphatase level (36) Renal failure (ARF), acute on chronic (37) HCAP (healthcare-associated pneumonia) (38) Lane Alexis Nov 30, 2019 11:29
[2019-11-30 11:40] VITALS: BP 142/74
[2019-11-30 12:13] LABS: HEMATOCRIT 20.7 % (37.0-47.0); MEAN CORPUSCULAR VOLUME 84 FL (80-99); PLATELET COUNT 346 K/UL (150-450); RED BLOOD COUNT 2.45 M/UL (4.20-5.40); RED CELL DISTRIBUTION WIDTH 14.1 % (11.6-14.8); WHITE BLOOD COUNT 17.5 K/UL (4.8-10.8)
--- NOTE | 2019-11-30 12:13 | Nephrology Progress Note ---
Assessment/Plan Problem List: (1) JAVIER (acute kidney injury) (2) Renal failure (ARF), acute on chronic (3) Feeding by G-tube (4) Tracheostomy in place (5) Electrolyte imbalance (6) Anemia (7) Respiratory failure, acute and chronic Assessment Patient is presented with sepsis and pneumonia and UTI, hypoxia Patient has acute renal failure, possible underlying chronic kidney failure Severe anemia Electrolyte imbalances: Hyponatremia, hypo-kalemia Chronic respiratory failure, COPD exacerbation Has sacral decubitus ulcer stage IV PEG Plan Consider transfusion Urine studies Adjust blood pressure medication Albumin bolus Norman catheter, intake and output Monitor renal parameters Avoid nephrotoxic's Antibiotics Per orders Subjective ROS Limited/Unobtainable: Yes Objective Objective Last 24 Hour Vital Signs Date Time Temp Pulse Resp B/P (MAP) Pulse Ox O2 Delivery O2 Flow Rate FiO2 11/30/19 11:40 100.8 75 18 142/74 (96) 96 11/30/19 11:11 100.8 11/30/19 10:30 101.5 11/30/19 08:00 80 11/30/19 08:00 Mechanical Ventilator 11/30/19 08:00 100.6 80 16 138/64 (88) 99 11/30/19 08:00 80 11/30/19 07:01 83 23 70 11/30/19 05:53 141/69 11/30/19 05:10 77 147/72 11/30/19 04:00 97.9 78 22 141/76 (97) 98 11/30/19 04:00 Mechanical Ventilator 11/30/19 04:00 80 11/30/19 03:32 71 11/30/19 03:21 75 21 70 11/30/19 00:00 80 11/30/19 00:00 98.1 67 20 120/60 (80) 97 11/30/19 00:00 Mechanical Ventilator 11/29/19 23:58 75 22 70 11/29/19 23:39 70 11/29/19 23:15 129/62 11/29/19 21:06 70 130/68 11/29/19 20:00 Mechanical Ventilator 11/29/19 20:00 98.0 69 20 114/57 (76) 98 11/29/19 20:00 80 11/29/19 19:36 69 24 70 11/29/19 19:25 63 11/29/19 17:33 146/76 11/29/19 16:00 67 11/29/19 16:00 80 11/29/19 16:00 Mechanical Ventilator 11/29/19 16:00 98.1 78 20 146/76 (99) 100 11/29/19 15:30 71 27 70 Intake and Output 11/29/19 11/30/19 19:00 07:00 Intake Total 290 ml 345 ml Output Total 1250 ml 850 ml Balance -960 ml -505 ml Intake Free Water 160 ml 50 ml IV Total 255 ml Tube Feeding 130 ml 40 ml Output Urine Total 800 ml 850 ml Other 450 ml # Bowel Movements 1 Laboratory Tests 11/29/19 13:15: Urine Random Sodium 40 11/29/19 13:55: Body Fluid Source Pleural, Body Fluid Volume 24, Body Fluid Appearance Hazy, Body Fluid pH 8.0, Body Fluid RBC 30, Body Fluid Total Nucleated Cells 196, Body Fluid Polynuclear WBCs (%) 2, Body Fluid Mononuclear WBCs (%) 49, Body Fluid Mesothelial Cells (%) 49, Body Fluid Glucose [Pending], Body Fluid Total Protein [Pending], Body Fluid Lactate Dehydrogenase [Pending], Body Fluid Comment 11/29/19 16:20: Urine Legionella Antigen [Pending] 11/30/19 07:30: White Blood Count 16.3H, Red Blood Count 2.37L, Hemoglobin 6.7*L, Hematocrit 20.0L, Mean Corpuscular Volume 84, Mean Corpuscular Hemoglobin 28.5, Mean Corpuscular Hemoglobin Concent 33.7, Red Cell Distribution Width 14.1, Platelet Count 331, Mean Platelet Volume 4.8L, Neutrophils (%) (Auto) , Lymphocytes (%) (Auto) , Monocytes (%) (Auto) , Eosinophils (%) (Auto) , Basophils (%) (Auto) , Differential Total Cells Counted 100, Neutrophils % (Manual) 91H, Lymphocytes % (Manual) 8L, Monocytes % (Manual) 1, Eosinophils % (Manual) 0, Basophils % (Manual) 0, Band Neutrophils 0, Platelet Estimate Adequate, Platelet Morphology Normal, Hypochromasia 2+, Anisocytosis 1+, Sodium Level 131L, Potassium Level 3.8, Chloride Level 98, Carbon Dioxide Level 16L, Anion Gap 17H, Blood Urea Nitrogen 122H, Creatinine 3.2H, Estimat Glomerular Filtration Rate 15.5, Glucose Level 74, Hemoglobin A1c 4.1L, Uric Acid 7.3H, Calcium Level 8.5, Phosphorus Level 4.6, Magnesium Level 3.2H, Iron Level 13L, Total Iron Binding Capacity 188L, Percent Iron Saturation 7L, Unsaturated Iron Binding 175, Ferritin 923H, Total Bilirubin 0.4, Gamma Glutamyl Transpeptidase 29, Aspartate Amino Transf (AST/SGOT) 21, Alanine Aminotransferase (ALT/SGPT) 13, Alkaline Phosphatase 135H , Ammonia 52H, Lactate Dehydrogenase 150, Troponin I 0.346H, C-Reactive Protein, Quantitative 7.5H, Pro-B-Type Natriuretic Peptide > 14066H, Total Protein 6.7, Albumin 3.1L, Globulin 3.6, Albumin/Globulin Ratio 0.9L, Triglycerides Level 59, Cholesterol Level 61, LDL Cholesterol 37, HDL Cholesterol 19L, Cholesterol/HDL Ratio 3.2L, Lipase > 2000H, Vitamin B12 Level 1744H, Folate 65.9H, Thyroid Stimulating Hormone (TSH) 0.995, Random Vancomycin Level 11.3, Mycoplasma pneumoniae IgM Ab Titer [Pending] 11/30/19 12:00: White Blood Count [Pending], Red Blood Count [Pending], Hemoglobin [Pending], Hematocrit [Pending], Mean Corpuscular Volume [Pending], Mean Corpuscular Hemoglobin [Pending], Mean Corpuscular Hemoglobin Concent [Pending], Red Cell Distribution Width [Pending], Platelet Count [Pending], Mean Platelet Volume [Pending], Neutrophils (%) (Auto) [Pending], Lymphocytes (%) (Auto) [Pending], Monocytes (%) (Auto) [Pending], Eosinophils (%) (Auto) [Pending], Basophils (%) (Auto) [Pending] Height (Feet): 5 Height (Inches): 4.00 Weight (Pounds): 150 General Appearance: no apparent distress EENT: other - Trach to vent Cardiovascular: normal rate Respiratory/Chest: decreased breath sounds Abdomen: distended Jonhny Houston MD Nov 30, 2019 12:13
[2019-11-30] MEDS ORDERED: Vancomycin 1gm/D5W 275ml IVPB ONE ×2 (15:00)
[2019-11-30 16:00] VITALS: BP 147/72
--- NOTE | 2019-11-30 19:11 | General Progress Note ---
Subjective Constitutional: Reports: no symptoms, malaise, weakness HEENT: Reports: no symptoms, other - Periorbital edema Cardiovascular: Reports: edema Respiratory: Reports: no symptoms Gastrointestinal/Abdominal: Reports: no symptoms Genitourinary: Reports: no symptoms, other - Both labias are swollen Neurologic/Psychiatric: Reports: no symptoms Hematologic/Lymphatic: Reports: no symptoms Allergies: Coded Allergies: No Known Allergies (Unverified , 10/10/17) Objective Last 24 Hour Vital Signs Date Time Temp Pulse Resp B/P (MAP) Pulse Ox O2 Delivery O2 Flow Rate FiO2 11/30/19 17:20 147/72 11/30/19 16:10 80 11/30/19 16:00 Mechanical Ventilator 11/30/19 16:00 85 11/30/19 16:00 100.0 78 18 147/72 (97) 100 11/30/19 15:00 103 21 70 11/30/19 13:20 75 142/74 11/30/19 12:19 80 11/30/19 12:18 Mechanical Ventilator 11/30/19 12:15 142/74 11/30/19 12:00 75 11/30/19 11:40 100.8 75 18 142/74 (96) 96 11/30/19 11:16 75 23 70 11/30/19 11:11 100.8 11/30/19 10:30 101.5 11/30/19 08:00 80 11/30/19 08:00 Mechanical Ventilator 11/30/19 08:00 100.6 80 16 138/64 (88) 99 11/30/19 08:00 80 11/30/19 07:01 83 23 70 11/30/19 05:53 141/69 11/30/19 05:10 77 147/72 11/30/19 04:00 97.9 78 22 141/76 (97) 98 11/30/19 04:00 Mechanical Ventilator 11/30/19 04:00 80 11/30/19 03:32 71 11/30/19 03:21 75 21 70 11/30/19 00:00 80 11/30/19 00:00 98.1 67 20 120/60 (80) 97 11/30/19 00:00 Mechanical Ventilator 11/29/19 23:58 75 22 70 11/29/19 23:39 70 11/29/19 23:15 129/62 11/29/19 21:06 70 130/68 11/29/19 20:00 Mechanical Ventilator 11/29/19 20:00 98.0 69 20 114/57 (76) 98 11/29/19 20:00 80 11/29/19 19:36 69 24 70 11/29/19 19:25 63 Intake and Output 11/29/19 11/30/19 19:00 07:00 Intake Total 290 ml 345 ml Output Total 1250 ml 850 ml Balance -960 ml -505 ml Intake Free Water 160 ml 50 ml IV Total 255 ml Tube Feeding 130 ml 40 ml Output Urine Total 800 ml 850 ml Other 450 ml # Bowel Movements 1 Laboratory Tests 11/30/19 07:30: White Blood Count 16.3H, Red Blood Count 2.37L, Hemoglobin 6.7*L, Hematocrit 20.0L, Mean Corpuscular Volume 84, Mean Corpuscular Hemoglobin 28.5, Mean Corpuscular Hemoglobin Concent 33.7, Red Cell Distribution Width 14.1, Platelet Count 331, Mean Platelet Volume 4.8L, Neutrophils (%) (Auto) , Lymphocytes (%) (Auto) , Monocytes (%) (Auto) , Eosinophils (%) (Auto) , Basophils (%) (Auto) , Differential Total Cells Counted 100, Neutrophils % (Manual) 91H, Lymphocytes % (Manual) 8L, Monocytes % (Manual) 1, Eosinophils % (Manual) 0, Basophils % (Manual) 0, Band Neutrophils 0, Platelet Estimate Adequate, Platelet Morphology Normal, Hypochromasia 2+, Anisocytosis 1+, Sodium Level 131L, Potassium Level 3.8, Chloride Level 98, Carbon Dioxide Level 16L, Anion Gap 17H, Blood Urea Nitrogen 122H, Creatinine 3.2H, Estimat Glomerular Filtration Rate 15.5, Glucose Level 74, Hemoglobin A1c 4.1L, Uric Acid 7.3H, Calcium Level 8.5, Phosphorus Level 4.6, Magnesium Level 3.2H, Iron Level 13L, Total Iron Binding Capacity 188L, Percent Iron Saturation 7L, Unsaturated Iron Binding 175, Ferritin 923H, Total Bilirubin 0.4, Gamma Glutamyl Transpeptidase 29, Aspartate Amino Transf (AST/SGOT) 21, Alanine Aminotransferase (ALT/SGPT) 13, Alkaline Phosphatase 135H , Ammonia 52H, Lactate Dehydrogenase 150, Troponin I 0.346H, C-Reactive Protein, Quantitative 7.5H, Pro-B-Type Natriuretic Peptide > 11941N, Total Protein 6.7, Albumin 3.1L, Globulin 3.6, Albumin/Globulin Ratio 0.9L, Triglycerides Level 59, Cholesterol Level 61, LDL Cholesterol 37, HDL Cholesterol 19L, Cholesterol/HDL Ratio 3.2L, Lipase > 2000H, Vitamin B12 Level 1744H, Folate 65.9H, Thyroid Stimulating Hormone (TSH) 0.995, Random Vancomycin Level 11.3, Mycoplasma pneumoniae IgM Ab Titer [Pending] 11/30/19 12:00: White Blood Count 17.5H, Red Blood Count 2.45L, Hemoglobin 7.0L, Hematocrit 20.7L, Mean Corpuscular Volume 84, Mean Corpuscular Hemoglobin 28.5, Mean Corpuscular Hemoglobin Concent 33.8, Red Cell Distribution Width 14.1, Platelet Count 346, Mean Platelet Volume 4.7L, Neutrophils (%) (Auto) , Lymphocytes (%) (Auto) , Monocytes (%) (Auto) , Eosinophils (%) (Auto) , Basophils (%) (Auto) , Differential Total Cells Counted 100, Neutrophils % (Manual) 87H, Lymphocytes % (Manual) 8L, Monocytes % (Manual) 4, Eosinophils % (Manual) 1, Basophils % (Manual) 0, Band Neutrophils 0, Platelet Estimate Adequate, Platelet Morphology Normal, Hypochromasia 1+, Anisocytosis 1+ Height (Feet): 5 Height (Inches): 4.00 Weight (Pounds): 150 General Appearance: WD/WN, lethargic EENT: normal ENT inspection, other - Periorbital edema improved Neck: supple Cardiovascular: normal rate, regular rhythm, tachycardia Respiratory/Chest: lungs clear, normal breath sounds, no respiratory distress, no accessory muscle use Abdomen: normal bowel sounds, non tender, soft, no organomegaly, no mass, other - There is erythema around the G-tube site and there is a purulent exudate leaking out of the gastrostomy periphery Pelvis: other - Labia is swollen Extremities: non-tender Edema: 2+ Leg (L), 2+ Leg (R) Neurologic: responsive, other - Somnolent but arousable Assessment/Plan Status Narrative Patient condition is progressively improving fest and intake output revealed the patient had 1600 cc of negative intake and output indicating successful treatment by the appellate court clerk of volume expansion by 25% albumin 6 dosages every 8 hours to with empiric antibiotic WBC declined from 31,000-17,000 today the problem of periorbital edema and peripheral edema and labial edema still persist but appear to be responding slowly to the therapy current antibiotic of vancomycin meropenem appears to respond to the current bacteriological finding patient has been assessed by the general surgeon but solution should be found to the gastrostomy site which appears to be infected patient H&H drop 2 unit of packed RBC has been ordered but she cannot be transfused as yet because of persistent fever Repeat laboratory tests will be done in a.. Lucas Canales MD, MD Nov 30, 2019 19:11
[2019-11-30 20:00] VITALS: BP 134/78
--- NOTE | 2019-11-30 20:03 | Cardiology Report ---
APPROVED REPORT EKG Measurement Heart [id number] <Conclusion> Normal sinus rhythm Right axis deviation Pulmonary disease pattern Septal infarct, age undetermined Abnormal ECG
--- NOTE | 2019-11-30 20:09 | Pulmonology Progress Note ---
Subjective ROS Limited/Unobtainable: Yes Interval Events: None new Constitutional: Reports: no symptoms HEENT: Repors: no symptoms Respiratory: Reports: no symptoms Cardiovascular: Reports: no symptoms Gastrointestinal/Abdominal: Reports: no symptoms Allergies: Coded Allergies: No Known Allergies (Unverified , 10/10/17) Objective Last 24 Hour Vital Signs Date Time Temp Pulse Resp B/P (MAP) Pulse Ox O2 Delivery O2 Flow Rate FiO2 11/30/19 19:33 80 26 70 11/30/19 17:51 100.0 11/30/19 17:20 147/72 11/30/19 16:10 80 11/30/19 16:00 Mechanical Ventilator 11/30/19 16:00 85 11/30/19 16:00 100.0 78 18 147/72 (97) 100 11/30/19 15:00 103 21 70 11/30/19 13:20 75 142/74 11/30/19 12:19 80 11/30/19 12:18 Mechanical Ventilator 11/30/19 12:15 142/74 11/30/19 12:00 75 11/30/19 11:40 100.8 75 18 142/74 (96) 96 11/30/19 11:16 75 23 70 11/30/19 11:11 100.8 11/30/19 10:30 101.5 11/30/19 08:00 80 11/30/19 08:00 Mechanical Ventilator 11/30/19 08:00 100.6 80 16 138/64 (88) 99 11/30/19 08:00 80 11/30/19 07:01 83 23 70 11/30/19 05:53 141/69 11/30/19 05:10 77 147/72 11/30/19 04:00 97.9 78 22 141/76 (97) 98 11/30/19 04:00 Mechanical Ventilator 11/30/19 04:00 80 11/30/19 03:32 71 11/30/19 03:21 75 21 70 11/30/19 00:00 80 11/30/19 00:00 98.1 67 20 120/60 (80) 97 11/30/19 00:00 Mechanical Ventilator 11/29/19 23:58 75 22 70 11/29/19 23:39 70 11/29/19 23:15 129/62 11/29/19 21:06 70 130/68 Intake and Output 11/29/19 11/30/19 19:00 07:00 Intake Total 290 ml 345 ml Output Total 1250 ml 850 ml Balance -960 ml -505 ml Intake Free Water 160 ml 50 ml IV Total 255 ml Tube Feeding 130 ml 40 ml Output Urine Total 800 ml 850 ml Other 450 ml # Bowel Movements 1 General Appearance: no acute distress HEENT: normocephalic, status post trach Respiratory: chest wall non-tender, lungs clear Cardiovascular: normal peripheral pulses Abdomen: normal bowel sounds Microbiology Date/Time Source Procedure Growth Status 11/29/19 17:30 Sputum Gram Stain - Final Resulted 11/29/19 17:30 Sputum Sputum Culture - Preliminary NO GROWTH Resulted 11/29/19 17:05 Nasopharynx - Final Complete 11/29/19 17:05 Nasopharynx - Final Complete 11/29/19 16:30 Nasopharynx SARS-CoV-2 RdRp Gene Assay - Final Complete 11/29/19 13:55 Pleural Fluid Gram Stain - Final Resulted 11/29/19 13:55 Pleural Fluid Body Fluid Culture - Preliminary NO GROWTH Resulted 11/28/19 20:40 Rectum VRE Culture - Final Enterococcus Faecalis - Vre Enterococcus Faecium - Vre Complete 11/28/19 20:40 Nasal Nares MRSA Culture - Final Staphylococcus Aureus - Mrsa Complete 11/28/19 20:30 Urine,Clean Catch Urine Culture - Preliminary Gram Negative Arnaud Resulted 11/28/19 20:30 Nasopharynx SARS-CoV-2 RdRp Gene Assay - Final Complete 11/28/19 20:30 Blood Blood Culture - Preliminary NO GROWTH AFTER 24 HOURS Resulted 11/28/19 20:15 Blood Blood Culture - Preliminary NO GROWTH AFTER 24 HOURS Resulted Laboratory Tests 11/30/19 07:30: White Blood Count 16.3H, Red Blood Count 2.37L, Hemoglobin 6.7*L, Hematocrit 20.0L, Mean Corpuscular Volume 84, Mean Corpuscular Hemoglobin 28.5, Mean Corpuscular Hemoglobin Concent 33.7, Red Cell Distribution Width 14.1, Platelet Count 331, Mean Platelet Volume 4.8L, Neutrophils (%) (Auto) , Lymphocytes (%) (Auto) , Monocytes (%) (Auto) , Eosinophils (%) (Auto) , Basophils (%) (Auto) , Differential Total Cells Counted 100, Neutrophils % (Manual) 91H, Lymphocytes % (Manual) 8L, Monocytes % (Manual) 1, Eosinophils % (Manual) 0, Basophils % (Manual) 0, Band Neutrophils 0, Platelet Estimate Adequate, Platelet Morphology Normal, Hypochromasia 2+, Anisocytosis 1+, Sodium Level 131L, Potassium Level 3.8, Chloride Level 98, Carbon Dioxide Level 16L, Anion Gap 17H, Blood Urea Nitrogen 122H, Creatinine 3.2H, Estimat Glomerular Filtration Rate 15.5, Glucose Level 74, Hemoglobin A1c 4.1L, Uric Acid 7.3H, Calcium Level 8.5, Phosphorus Level 4.6, Magnesium Level 3.2H, Iron Level 13L, Total Iron Binding Capacity 188L, Percent Iron Saturation 7L, Unsaturated Iron Binding 175, Ferritin 923H, Total Bilirubin 0.4, Gamma Glutamyl Transpeptidase 29, Aspartate Amino Transf (AST/SGOT) 21, Alanine Aminotransferase (ALT/SGPT) 13, Alkaline Phosphatase 135H , Ammonia 52H, Lactate Dehydrogenase 150, Troponin I 0.346H, C-Reactive Protein, Quantitative 7.5H, Pro-B-Type Natriuretic Peptide > 54336W, Total Protein 6.7, Albumin 3.1L, Globulin 3.6, Albumin/Globulin Ratio 0.9L, Triglycerides Level 59, Cholesterol Level 61, LDL Cholesterol 37, HDL Cholesterol 19L, Cholesterol/HDL Ratio 3.2L, Lipase > 2000H, Vitamin B12 Level 1744H, Folate 65.9H, Thyroid Stimulating Hormone (TSH) 0.995, Random Vancomycin Level 11.3, Mycoplasma pneumoniae IgM Ab Titer [Pending] 11/30/19 12:00: White Blood Count 17.5H, Red Blood Count 2.45L, Hemoglobin 7.0L, Hematocrit 20.7L, Mean Corpuscular Volume 84, Mean Corpuscular Hemoglobin 28.5, Mean Corpuscular Hemoglobin Concent 33.8, Red Cell Distribution Width 14.1, Platelet Count 346, Mean Platelet Volume 4.7L, Neutrophils (%) (Auto) , Lymphocytes (%) (Auto) , Monocytes (%) (Auto) , Eosinophils (%) (Auto) , Basophils (%) (Auto) , Differential Total Cells Counted 100, Neutrophils % (Manual) 87H, Lymphocytes % (Manual) 8L, Monocytes % (Manual) 4, Eosinophils % (Manual) 1, Basophils % (Manual) 0, Band Neutrophils 0, Platelet Estimate Adequate, Platelet Morphology Normal, Hypochromasia 1+, Anisocytosis 1+ Current Medications Medications (Trade) Dose Ordered Sig/Penny Route PRN Reason Start Time Stop Time Status Last Admin Dose Admin Acetaminophen (Tylenol) 650 mg Q4H PRN GT Temp >100.5 11/29/19 04:30 12/29/19 04:29 11/30/19 17:21 Acetaminophen/ Hydrocodone Bitart ([place]) 1 tab Q4H PRN GT For moderate pain 11/29/19 15:30 12/06/19 15:29 Albumin Human 100 ml @ 100 mls/hr Q8HR IV 11/29/19 14:00 12/01/19 06:59 11/30/19 13:21 Albuterol/ Ipratropium (Albuterol/ Ipratropium) 3 ml Q3H PRN HHN Shortness of Breath 11/29/19 01:30 12/04/19 01:29 Ascorbic Acid (Vitamin C) 500 mg DAILY GT 11/29/19 09:00 12/29/19 08:59 11/30/19 10:18 Barium Sulfate (Readi-Cat 2) 450 ml NOW PRN ORAL Radiology Procedure 11/29/19 14:15 12/01/19 14:14 Clonidine HCl (Catapres TTS-1) 1 patch ONCE A WEEK TDERMAL 12/03/19 09:00 03/02/20 08:59 Diltiazem HCl (Cardizem Tab) 30 mg EVERY 8 HOURS GT 11/29/19 22:00 12/29/19 05:59 11/30/19 13:20 Epoetin Gelacio (Epoetin Gelacio-EPBX(NON ESRD)) 10,000 unit MON-WED-MON SUBQ 11/29/19 21:00 02/27/20 20:59 11/29/19 20:49 Heparin Sodium (Porcine) (Heparin 5000 units/ml) 5,000 units EVERY 12 HOURS SUBQ 11/29/19 09:00 01/13/20 08:59 11/29/19 20:50 Hydralazine HCl (Apresoline) 25 mg Q6HR GT 11/29/19 18:00 02/27/20 17:59 11/30/19 17:20 Hydromorphone HCl (Dilaudid) 2 mg Q6H PRN GT Severe Pain (Pain Scale 7-10) 11/29/19 01:30 12/06/19 01:29 Meropenem 500 mg/ Sodium Chloride 55 ml @ 110 mls/hr Q12H IVPB 11/29/19 15:00 12/04/19 14:59 11/30/19 15:35 Metoclopramide HCl (Reglan) 5 mg Q6HR GT 11/29/19 06:00 12/29/19 05:59 11/30/19 17:20 Metolazone (Zaroxolyn) 2.5 mg QHS GT 11/29/19 21:00 12/29/19 20:59 11/29/19 20:49 Metolazone (Zaroxolyn) 5 mg DAILY GT 11/29/19 09:00 12/29/19 08:59 11/30/19 10:17 Polyethylene Glycol (Miralax) 17 gm BEDTIME GT 11/29/19 21:00 12/29/19 20:59 Vancomycin HCl (Vanco pharmacy to dose) 1 ea DAILY PRN MISC Per rx protocol 11/29/19 01:15 12/29/19 01:14 Vitamin B Complex/ Vit C/Folic Acid (Nephrovite) 1 tab DAILY GT 11/29/19 09:00 12/29/19 08:59 11/30/19 10:17 Zinc Sulfate (Zinc Sulfate) 220 mg DAILY GT 11/29/19 09:00 02/27/20 08:59 11/30/19 10:17 Assessment/Plan Assessment/Plan Assessment: COVID19 neg x1 Sepsis Probable U TI Pl effusion - 11/28 Sp Thoraco (w: 169, PMN: 2%, L: 49% , LDH: P: ) PNA R/o probable bacteremia Low grade fever Leukocytosis, improving Acute on chronic hypoxic resp failure JAVIER on CKD- on previous admission Sep-Oct 2019 required HD for short period hx of Recent MDR PnA, sp rx 10/15/19 sp cx ESBL P. mirabilis, MDR P.a. ( S only to Gent) 09/22 Resp cx + MDR PsA (S-gent; I-colistin; R-levofloxacin, Zosyn, angelo) 09/16/19 Sp cx ESBL P. mirablis hx of recent UTI 09/15/19 u/a wbc tnct, nit neg, leuk +3; ucx >100k MDR P. stuarti (S Ceftriaxone, Meropenem) 10/07 u/a wbc tnct, nit neg, leuk ; ucx >100k VRE 10/15/19 u/a wbc tnct; ucx >100k ESBL P. stuarti (S ertapenem, aztreonam) H/o PPM site (pocket) infection and pocket abscess 2ry to S. epi-11/2018, sp >6weeks IV vancomycin 11/27 SP ABBIE: no evidence for vegetation on any of the valves 11/26/18 SP PPM removal: OR findings:The fibrous capsule enclosing the generator was then opened and there was a [id number] amount of yellowish fluid drainage. The generator was then removed.Atrial and ventricular leads were detached. The necrotic tissue of the pocket was then removed and the pocket was flushed with an antibiotic solution. Capsule, wound tissue and lead tip cx: Neg 2d echo: no vegetation seen US chest: 4.6 x 3.4 x 0.9 cm hypoechoic/anechoic area overlying left chest pacemaker power pack. This could represent either a discrete fluid collection or a focal area of very edematous tissue. Infected fluid pocket also possible. 11/18 Bcx 3/4 S. epi; 11/20 Bcx neg; 11/24 Bcx Neg; 11/27 Bcx Neg CAD s/p CABG GERD/gastritis Afib HTN Dysphagia sp GT Aortic dissection s/p repair 2017, S/p PPM Parkinson's Disease Schizophrenia Anxiety COPD Chronic resp failure s/p trach Hx of tracheal bleeding [place] resident ([facility]) Plan: -Continue empiric abx -f/u cx -Monitor CBC/CMP, temperatures -sp cx, influenza ag, legionella ag urine -PEG/trach care -aspiration precautions -COVID19 isolation and testing; send 2nd COVID -for thoracentesis- send fluid analysis and culture - CT A/P eval of leukocytosis and fever Elijah Stephen MD Nov 30, 2019 20:09
[2019-11-30] MEDS: Miralax 17gm pkt GT SCH (20:54)
[2019-11-30] MEDS: metOLazone 2.5 MG TAB GT SCH (20:59)
[2019-12-01] VITALS: BP 122/56
[2019-12-01] MEDS: HydrALAZINE 25mg tab GT SCH ×5 (00:04→23:44)
--- NOTE | 2019-12-01 01:15 | Consultation ---
DATE OF CONSULTATION: 11/30/2019 CARDIOLOGY CONSULTATION CONSULTING PHYSICIAN: Deni Willams MD. REFERRING PHYSICIAN: Lucas Dong MD. REASON FOR CONSULTATION: Elevated troponin level in the setting of ischemic heart disease. HISTORY OF PRESENT ILLNESS: This is a 49-year-old female with a complicated medical history. She was admitted to the hospital two days ago with sepsis, probable bacteremia due to sacral decubitus and acute on chronic renal failure. She was also severely anemic and has been transfused. She was noted to have an elevated troponin level. I have been asked to assist with further cardiovascular care. The patient is unable to give much historical data, however, extended record review was performed. PAST MEDICAL HISTORY: 1. Coronary artery disease with history of CABG. 2. Respiratory failure with history of tracheotomy. 3. Prior history of bacteremia. 4. History of prior pacemaker, status post explantation due to endovascular infection. 5. Chronic kidney disease. 6. Anemia of chronic kidney disease. 7. History of substance abuse. 8. Hyperlipidemia. 9. Depression with psychosis. 10. Vitamin D deficiency. 11. History of aortic dissection and repair in 2018. 12. Paroxysmal atrial fibrillation. 13. Gastroesophageal reflux disease. MEDICATIONS: Reviewed. ALLERGIES: None known. FAMILY HISTORY: Not remarkable. SOCIAL HISTORY: There is a smoking history of a pack per day for 20-plus years. No illicit drug use or alcohol abuse, however, she does have a history of dependence on narcotic analgesics therapies. PHYSICAL EXAMINATION: VITAL SIGNS: Blood pressure 134/78, pulse 73, respirations 18, temperature 100.1. HEENT: Dry mucous membranes. NECK: Trach site with thin secretions. LUNGS: Bilateral rhonchi. CARDIAC: Regular rhythm and rate. Normal S1, S2 with a fourth heart sound. ABDOMEN: Soft with G-tube. EXTREMITIES: No edema. LABORATORY DATA: Sodium 131, potassium 3.8, bicarb 16, BUN 122, creatinine 3.2. Troponin is 0.346, increased from 0.126. Pro-natriuretic peptide is over 35,000. Lipase is over 2000. Albumin is 3.1. EKG with sinus rhythm, anteroseptal infarction of indeterminate age, nonspecific ST-T change. Chest x-ray, status post thoracentesis reveals resolved right pleural effusion. Left consolidation. Tracheostomy. Median sternotomy. IMPRESSION: 1. Acute myocardial ischemia and possible non-ST elevation infarction precipitated by hypoperfusion due to sepsis and severe anemia in the setting of ischemic heart disease. 2. Ischemic cardiomyopathy, status post CABG. 3. History of aortic aneurysmal repair. 4. History of conduction system disease and pacemaker, status post endovascular infection and explantation now with stable cardiac rhythm, and history of paroxysmal atrial fibrillation. 5. Decubital sepsis and possible bacteremia. 6. Acute on chronic renal failure with history of temporary hemodialysis in the past. PLAN: 1. Replace diltiazem with beta flori. 2. Anti-platelet therapy if no active bleeding noted. 3. Lipid panel with LDL goal less than 70. 4. Followup blood cultures. 5. Consider transesophageal echocardiogram if any concern for endocarditis present, may require hemodialysis. 6. Continue ventilator support. 7. The patient is high risk. Deni Willams M.D. DR: CINDY JOB#: [id number] CC:
[2019-12-01] MEDS: Meropenem 500 MG in NS 55 ML IVPB SCH ×2 (02:32→14:16)
[2019-12-01 04:00] VITALS: BP 140/64
[2019-12-01 08:00] VITALS: BP 150/72
[2019-12-01] MEDS: Heparin 5000 units/ml inj SUBQ SCH ×2 (09:00→20:58)
[2019-12-01 09:24] LABS: HEMATOCRIT 24.6 % (37.0-47.0); HEMOGLOBIN 8.4 G/DL (12.0-16.0); MEAN CORPUSCULAR VOLUME 84 FL (80-99); PLATELET COUNT 328 K/UL (150-450); RED BLOOD COUNT 2.92 M/UL (4.20-5.40); RED CELL DISTRIBUTION WIDTH 13.7 % (11.6-14.8); WHITE BLOOD COUNT 16.5 K/UL (4.8-10.8)
[2019-12-01 09:27] LABS: INR 1.9 (0.9-1.1)
--- NOTE | 2019-12-01 09:34 | Pulmonology Progress Note ---
Subjective ROS Limited/Unobtainable: Yes Interval Events: None new Constitutional: Reports: no symptoms HEENT: Repors: no symptoms Respiratory: Reports: no symptoms Cardiovascular: Reports: no symptoms Gastrointestinal/Abdominal: Reports: no symptoms Allergies: Coded Allergies: No Known Allergies (Unverified , 10/10/17) Objective Last 24 Hour Vital Signs Date Time Temp Pulse Resp B/P (MAP) Pulse Ox O2 Delivery O2 Flow Rate FiO2 12/01/19 08:00 96.8 63 18 150/72 (98) 100 12/01/19 08:00 70 12/01/19 08:00 63 12/01/19 07:50 68 25 70 12/01/19 05:30 156/70 12/01/19 04:00 51 12/01/19 04:00 98.0 60 18 140/64 (89) 99 12/01/19 04:00 80 12/01/19 04:00 Mechanical Ventilator 12/01/19 03:03 59 23 70 12/01/19 00:04 122/56 12/01/19 00:01 101.0 12/01/19 00:00 100.0 76 18 122/56 (78) 98 12/01/19 00:00 Mechanical Ventilator 12/01/19 00:00 80 11/30/19 23:44 64 11/30/19 22:56 75 26 70 11/30/19 21:03 72 138/68 11/30/19 20:00 80 11/30/19 20:00 80 11/30/19 20:00 100.1 73 18 134/78 (96) 99 11/30/19 20:00 Mechanical Ventilator 11/30/19 19:33 80 26 70 11/30/19 17:51 100.0 11/30/19 17:20 147/72 11/30/19 16:10 80 11/30/19 16:00 Mechanical Ventilator 11/30/19 16:00 85 11/30/19 16:00 100.0 78 18 147/72 (97) 100 11/30/19 15:00 103 21 70 11/30/19 13:20 75 142/74 11/30/19 12:19 80 11/30/19 12:18 Mechanical Ventilator 11/30/19 12:15 142/74 11/30/19 12:00 75 11/30/19 11:40 100.8 75 18 142/74 (96) 96 11/30/19 11:16 75 23 70 11/30/19 11:11 100.8 11/30/19 10:30 101.5 Intake and Output 11/30/19 12/01/19 19:00 07:00 Intake Total 830 ml 405 ml Output Total 750 ml 800 ml Balance 80 ml -395 ml Intake Free Water 50 ml IV Total 155 ml Blood Product 250 ml Other 780 ml Output Urine Total 750 ml 800 ml # Bowel Movements 1 General Appearance: no acute distress HEENT: normocephalic, status post trach Respiratory: chest wall non-tender, lungs clear Cardiovascular: normal peripheral pulses Abdomen: normal bowel sounds Microbiology Date/Time Source Procedure Growth Status 11/29/19 17:30 Sputum Gram Stain - Final Resulted 11/29/19 17:30 Sputum Culture - Preliminary Gram Negative Arnaud Resulted 11/29/19 17:05 Nasopharynx - Final Complete 11/29/19 17:05 Nasopharynx - Final Complete 11/29/19 16:30 Nasopharynx SARS-CoV-2 RdRp Gene Assay - Final Complete 11/29/19 13:55 Pleural Fluid Gram Stain - Final Resulted 11/29/19 13:55 Pleural Fluid Body Fluid Culture - Preliminary NO GROWTH AFTER 24 HOURS Resulted 11/28/19 20:40 Rectum - Final NO CARBAPENEM-RESISTANT ENTEROBACTERI... Complete 11/28/19 20:40 Rectum VRE Culture - Final Enterococcus Faecalis - Vre Enterococcus Faecium - Vre Complete 11/28/19 20:40 Nasal Nares MRSA Culture - Final Staphylococcus Aureus - Mrsa Complete 11/28/19 20:30 Urine,Clean Catch Urine Culture - Preliminary Morganella Morg Spp Morganii Proteus Mirabilis Esbl Resulted 11/28/19 20:30 Nasopharynx SARS-CoV-2 RdRp Gene Assay - Final Complete 11/28/19 20:30 Blood Blood Culture - Preliminary NO GROWTH AFTER 48 HOURS Resulted 11/28/19 20:15 Blood Blood Culture - Preliminary NO GROWTH AFTER 48 HOURS Resulted Laboratory Tests 11/30/19 12:00: White Blood Count 17.5H, Red Blood Count 2.45L, Hemoglobin 7.0L, Hematocrit 20.7L, Mean Corpuscular Volume 84, Mean Corpuscular Hemoglobin 28.5, Mean Corpus cular Hemoglobin Concent 33.8, Red Cell Distribution Width 14.1, Platelet Count 346, Mean Platelet Volume 4.7L, Neutrophils (%) (Auto) , Lymphocytes (%) (Auto) , Monocytes (%) (Auto) , Eosinophils (%) (Auto) , Basophils (%) (Auto) , Di fferential Total Cells Counted 100, Neutrophils % (Manual) 87H, Lymphocytes % (Manual) 8L, Monocytes % (Manual) 4, Eosinophils % (Manual) 1, Basophils % (Manual) 0, Band Neutrophils 0, Platelet Estimate Adequate, Platelet Morphology Normal, Hypochromasia 1+, Anisocytosis 1+ 11/30/19 20:33: POC Whole Blood Glucose 84 12/01/19 07:25: POC Whole Blood Glucose [Pending] 12/01/19 08:50: White Blood Count 16.5H, Red Blood Count 2.92L, Hemoglobin 8.4L, Hematocrit 24.6L, Mean Corpuscular Volume 84, Mean Corpuscular Hemoglobin 28.9, Mean Corpuscular Hemoglobin Concent 34.4, Red Cell Distribution Width 13.7, Platelet Count 328, Mean Platelet Volume 4.4L, Neutrophils (%) (Auto) , Lymphocytes (%) (Auto) , Monocytes (%) (Auto) , Eosinophils (%) (Auto) , Basophils (%) (Auto) , Neutrophils % (Manual) [Pending], Lymphocytes % (Manual) [Pending], Platelet Estimate [Pending], Platelet Morphology [Pending], Erythrocyte Sedimentation Rate [Pending], Prothrombin Time 19.5H, Prothromb Time International Ratio 1.9H, Activated Partial Thromboplast Time 33, Sodium Level [Pending], Potassium Level [Pending], Chloride Level [Pending], Carbon Dioxide Level [Pending], Blood Urea Nitrogen [Pending], Creatinine [Pending], Estimat Glomerular Filtration Rate [Pending], Glucose Level [Pending], Uric Acid [Pending], Calcium Level [Pending], Phosphorus Level [Pending], Magnesium Level [Pending], Total Bilirubin [Pending], Aspartate Amino Transf (AST/SGOT) [Pending], Alanine Aminotransferase (ALT/SGPT) [Pending], Alkaline Phosphatase [Pending], Troponin I [Pending], C-Reactive Protein, Quantitative [Pending], Total Protein [Pending], Albumin [Pending], Globulin [Pending], Triglycerides Level [Pending], Cholesterol Level [Pending], LDL Cholesterol [Pending], HDL Cholesterol [Pending], Cholesterol/HDL Ratio [Pending], Amylase Level [Pending], Lipase [Pending] Current Medications Medications (Trade) Dose Ordered Sig/Penny Route PRN Reason Start Time Stop Time Status Last Admin Dose Admin Acetaminophen (Tylenol) 650 mg Q4H PRN GT Temp >100.5 11/29/19 04:30 12/29/19 04:29 11/30/19 23:31 Acetaminophen/ Hydrocodone Bitart ([place] ) 1 tab Q4H PRN GT For moderate pain 11/29/19 15:30 12/06/19 15:29 Albuterol/ Ipratropium (Albuterol/ Ipratropium) 3 ml Q3H PRN HHN Shortness of Breath 11/29/19 01:30 12/04/19 01:29 Ascorbic Acid (Vitamin C) 500 mg DAILY GT 11/29/19 09:00 12/29/19 08:59 11/30/19 10:18 Barium Sulfate (Readi-Cat 2) 450 ml NOW PRN ORAL Radiology Procedure 11/29/19 14:15 12/01/19 14:14 Clonidine HCl (Catapres TTS-1) 1 patch ONCE A WEEK TDERMAL 12/03/19 09:00 03/02/20 08:59 Epoetin Gelacio (Epoetin Gelacio-EPBX(NON ESRD)) 10,000 unit MON-MON-MON SUBQ 11/29/19 21:00 02/27/20 20:59 11/29/19 20:49 Heparin Sodium (Porcine) (Heparin 5000 units/ml) 5,000 units EVERY 12 HOURS SUBQ 11/29/19 09:00 01/13/20 08:59 11/29/19 20:50 Hydralazine HCl (Apresoline) 25 mg Q6HR GT 11/29/19 18:00 02/27/20 17:59 12/01/19 05:30 Hydromorphone HCl (Dilaudid) 2 mg Q6H PRN GT Severe Pain (Pain Scale 7-10) 11/29/19 01:30 12/06/19 01:29 Meropenem 500 mg/ Sodium Chloride 55 ml @ 110 mls/hr Q12H IVPB 11/29/19 15:00 12/04/19 14:59 12/01/19 02:32 Metoclopramide HCl (Reglan) 5 mg Q6HR GT 11/29/19 06:00 12/29/19 05:59 12/01/19 05:30 Metolazone (Zaroxolyn) 2.5 mg QHS GT 11/29/19 21:00 12/29/19 20:59 11/30/19 20:59 Metolazone (Zaroxolyn) 5 mg DAILY GT 11/29/19 09:00 12/29/19 08:59 11/30/19 10:17 Metoprolol Tartrate (Lopressor) 25 mg Q12HR ORAL 12/01/19 09:00 02/29/20 08:59 Polyethylene Glycol (Miralax) 17 gm BEDTIME GT 11/29/19 21:00 12/29/19 20:59 Vancomycin HCl (Vanco pharmacy to dose) 1 ea DAILY PRN MISC Per rx protocol 11/29/19 01:15 12/29/19 01:14 Vitamin B Complex/ Vit C/Folic Acid (Nephrovite) 1 tab DAILY GT 11/29/19 09:00 12/29/19 08:59 11/30/19 10:17 Zinc Sulfate (Zinc Sulfate) 220 mg DAILY GT 11/29/19 09:00 02/27/20 08:59 11/30/19 10:17 Assessment/Plan Assessment/Plan Assessment: COVID19 neg x1 Sepsis Probable U TI Pl effusion - 11/28 Sp [place] (w: 169, PMN: 2%, L: 49% , LDH: P: ) PNA R/o probable bacteremia Low grade fever Leukocytosis, improving Acute on chronic hypoxic resp failure JAVIER on CKD- on previous admission Sep-Oct 2019 required HD for short period hx of Recent MDR PnA, sp rx 10/15/19 sp cx ESBL P. mirabilis, MDR P.a. ( S only to Gent) 09/22 Resp cx + MDR PsA (S-gent; I-colistin; R-levofloxacin, Zosyn, angelo) 09/16/19 Sp cx ESBL P. mirablis hx of recent UTI 09/15/19 u/a wbc tnct, nit neg, leuk +3; ucx >100k MDR P. stuarti (S Ceftriaxone, Meropenem) 10/07 u/a wbc tnct, nit neg, leuk ; ucx >100k VRE 10/15/19 u/a wbc tnct; ucx >100k ESBL P. stuarti (S ertapenem, aztreonam) H/o PPM site (pocket) infection and pocket abscess 2ry to S. epi-11/2018, sp >6weeks IV vancomycin 11/27 SP ABBIE: no evidence for vegetation on any of the valves 11/26/18 SP PPM removal: OR findings:The fibrous capsule enclosing the generator was then opened and there was a [id number] amount of yellowish fluid drainage. The generator was then removed.Atrial and ventricular leads were detached. The necrotic tissue of the pocket was then removed and the pocket was flushed with an antibiotic solution. Capsule, wound tissue and lead tip cx: Neg 2d echo: no vegetation seen US chest: 4.6 x 3.4 x 0.9 cm hypoechoic/anechoic area overlying left chest pacemaker power pack. This could represent either a discrete fluid collection or a focal area of very edematous tissue. Infected fluid pocket also possible. 11/18 Bcx 3/4 S. epi; 11/20 Bcx neg; 11/24 Bcx Neg; 11/27 Bcx Neg CAD s/p CABG GERD/gastritis Afib HTN Dysphagia sp GT Aortic dissection s/p repair 2017, S/p PPM Parkinson's Disease Schizophrenia Anxiety COPD Chronic resp failure s/p trach Hx of tracheal bleeding [place] resident ([facility]) Plan: -Continue empiric abx -f/u cx -Monitor CBC/CMP, temperatures -sp cx, influenza ag, legionella ag urine -PEG/trach care -aspiration precautions -COVID19 isolation and testing; send 2nd COVID -s/p thoracentesis- sent fluid analysis and culture - Will wean [id number] down Elijah Stephen MD Dec 01, 2019 09:34
[2019-12-01 09:37] LABS: ALBUMIN 3.3 G/DL (3.4-5.0); BILIRUBIN,TOTAL 0.4 MG/DL (0.2-1.0); CALCIUM 7.9 MG/DL (8.5-10.1); CREATININE 3.2 MG/DL (0.55-1.30); POTASSIUM 3.6 MMOL/L (3.5-5.1)
[2019-12-01 09:39] LABS: CHOLESTEROL 51 MG/DL (< 200); HDL CHOLESTEROL 21 MG/DL (40-60); TRIGLYCERIDES 23 MG/DL (30-150)
[2019-12-01] MEDS: Nephrovite tab (Rena-Vite) GT SCH (09:39)
[2019-12-01] MEDS ORDERED: Tubing Blood Filter IV ONE (09:40)
[2019-12-01] MEDS: Ascorbic Acid 500mg tab GT SCH (09:40)
[2019-12-01] MEDS ORDERED: Tubing IV Secondary IV ONE (09:40)
[2019-12-01] MEDS ORDERED: NS 275ml ONE (09:40)
[2019-12-01] MEDS: Zinc Sulfate 220mg GT SCH (09:40)
[2019-12-01 09:53] LABS: PHOSPHORUS 5.2 MG/DL (2.5-4.9)
--- NOTE | 2019-12-01 10:46 | General Progress Note ---
Subjective ROS Limited/Unobtainable: No Allergies: Coded Allergies: No Known Allergies (Unverified , 10/10/17) Objective Last 24 Hour Vital Signs Date Time Temp Pulse Resp B/P (MAP) Pulse Ox O2 Delivery O2 Flow Rate FiO2 12/01/19 09:40 66 153/70 12/01/19 08:00 96.8 63 18 150/72 (98) 100 12/01/19 08:00 96.8 63 18 150/72 (98) 100 12/01/19 08:00 63 12/01/19 08:00 70 12/01/19 08:00 70 12/01/19 08:00 63 12/01/19 07:50 68 25 70 12/01/19 05:30 156/70 12/01/19 04:00 51 12/01/19 04:00 98.0 60 18 140/64 (89) 99 12/01/19 04:00 80 12/01/19 04:00 Mechanical Ventilator 12/01/19 03:03 59 23 70 12/01/19 00:04 122/56 12/01/19 00:01 101.0 12/01/19 00:00 100.0 76 18 122/56 (78) 98 12/01/19 00:00 Mechanical Ventilator 12/01/19 00:00 80 11/30/19 23:44 64 11/30/19 22:56 75 26 70 11/30/19 21:03 72 138/68 11/30/19 20:00 80 11/30/19 20:00 80 11/30/19 20:00 100.1 73 18 134/78 (96) 99 11/30/19 20:00 Mechanical Ventilator 11/30/19 19:33 80 26 70 11/30/19 17:51 100.0 11/30/19 17:20 147/72 11/30/19 16:10 80 11/30/19 16:00 Mechanical Ventilator 11/30/19 16:00 85 11/30/19 16:00 100.0 78 18 147/72 (97) 100 11/30/19 15:00 103 21 70 11/30/19 13:20 75 142/74 11/30/19 12:19 80 11/30/19 12:18 Mechanical Ventilator 11/30/19 12:15 142/74 11/30/19 12:00 75 11/30/19 11:40 100.8 75 18 142/74 (96) 96 11/30/19 11:16 75 23 70 11/30/19 11:11 100.8 Intake and Output 11/30/19 12/01/19 19:00 07:00 Intake Total 830 ml 405 ml Output Total 750 ml 800 ml Balance 80 ml -395 ml Intake Free Water 50 ml IV Total 155 ml Blood Product 250 ml Other 780 ml Output Urine Total 750 ml 800 ml # Bowel Movements 1 Laboratory Tests 11/30/19 12:00: White Blood Count 17.5H, Red Blood Count 2.45L, Hemoglobin 7.0L, Hematocrit 20.7L, Mean Corpuscular Volume 84, Mean Corpuscular Hemoglobin 28.5, Mean Corpuscular Hemoglobin Concent 33.8, Red Cell Distribution Width 14.1, Platelet Count 346, Mean Platelet Volume 4.7L, Neutrophils (%) (Auto) , Lymphocytes (%) (Auto) , Monocytes (%) (Auto) , Eosinophils (%) (Auto) , Basophils (%) (Auto) , Differential Total Cells Counted 100, Neutrophils % (Manual) 87H, Lymphocytes % (Manual) 8L, Monocytes % (Manual) 4, Eosinophils % (Manual) 1, Basophils % (Manual) 0, Band Neutrophils 0, Platelet Estimate Adequate, Platelet Morphology Normal, Hypochromasia 1+, Anisocytosis 1+ 11/30/19 20:33: POC Whole Blood Glucose 84 12/01/19 07:25: POC Whole Blood Glucose [Pending] 12/01/19 08:50: White Blood Count 16.5H, Red Blood Count 2.92L, Hemoglobin 8.4L, Hematocrit 24.6L, Mean Corpuscular Volume 84, Mean Corpuscular Hemoglobin 28.9, Mean Iftikhar uscular Hemoglobin Concent 34.4, Red Cell Distribution Width 13.7, Platelet Count 328, Mean Platelet Volume 4.4L, Neutrophils (%) (Auto) , Lymphocytes (%) (Auto) , Monocytes (%) (Auto) , Eosinophils (%) (Auto) , Basophils (%) (Auto) , Differential Total Cells Counted 100, Neutrophils % (Manual) 88H, Lymphocytes % (Manual) 10L, Monocytes % (Manual) 2, Eosinophils % (Manual) 0, Basophils % (Manual) 0, Band Neutrophils 0, Platelet Estimate Adequate, Platelet Morphology Normal, Hypochromasia 1+, Erythrocyte Sedimentation Rate 28H, Prothrombin Time 19.5H, Prothromb Time International Ratio 1.9H, Activated Partial Thromboplast Time 33, Sodium Level 130L, Potassium Level 3.6, Chloride Level 98, Carbon Dioxide Level 15L, Anion Gap 17H, Blood Urea Nitrogen 127H, Creatinine 3.2H, Estimat Glomerular Filtration Rate 15.5, Glucose Level 130H, Uric Acid 7.7H, Calcium Level 7.9L, Phosphorus Level 5.2H, Magnesium Level 3.2H, Total Bilirubin 0.4, Aspartate Amino Transf (AST/SGOT) 20, Alanine Aminotransferase (ALT/SGPT) 10L, Alkaline Phosphatase 120H, Troponin I 0.121H, C-Reactive Protein, Quantitative 5.8H, Total Protein 6.7, Albumin 3.3L, Globulin 3.4, Albumin/Globulin Ratio 1.0, Triglycerides Level 23L, Cholesterol Level 51, LDL Cholesterol 29, HDL Cholesterol 21L, Cholesterol/HDL Ratio 2.4L, Amylase Level 188H, Lipase 1415H 12/01/19 10:04: POC Whole Blood Glucose 114H Height (Feet): 5 Height (Inches): 4.00 Weight (Pounds): 150 General Appearance: lethargic EENT: normal ENT inspection Neck: supple Cardiovascular: normal rate Respiratory/Chest: decreased breath sounds Abdomen: hypoactive bowel sounds Extremities: non-tender Assessment/Plan Assessment/Plan: 1. Coronary artery disease with history of CABG. 2. Respiratory failure with history of tracheotomy. 3. Prior history of bacteremia. 4. History of prior pacemaker, status post explantation due to endovascular infection. 5. Chronic kidney disease. 6. Anemia of chronic kidney disease. 7. History of substance abuse. 8. Hyperlipidemia. 9. dysphagia with GT 10. Vitamin D deficiency. 11. History of aortic dissection and repair in 2018. 12. Paroxysmal atrial fibrillation. 13. Gastroesophageal reflux disease. 14. prei Gt cellulitis 15. pancreatitis keep NPO ivf repeat labs plan GTF tomorrow if amylase and lipase better s/p blood transfusion fu stool ob ppi diogenes GT wound care fu CT Inder Mccauley MD Dec 01, 2019 10:46
[2019-12-01 12:00] VITALS: BP 147/69
[2019-12-01] MEDS: Acetaminophen 650mg/20.3ml GT PRN (12:29)
--- NOTE | 2019-12-01 13:22 | Nephrology Progress Note ---
Assessment/Plan Problem List: (1) JAVIER (acute kidney injury) (2) Renal failure (ARF), acute on chronic (3) Feeding by G-tube (4) Tracheostomy in place (5) Electrolyte imbalance (6) Anemia (7) Respiratory failure, acute and chronic Assessment Patient is presented with sepsis and pneumonia and UTI, hypoxia Patient has acute renal failure, possible underlying chronic kidney failure Severe anemia Electrolyte imbalances: Hyponatremia, hypo-kalemia Chronic respiratory failure, COPD exacerbation Has sacral decubitus ulcer stage IV PEG Plan November 30: Patient transfused. Hemoglobin higher. Serum sodium lower. Renal parameters unchanged. Trial of 3% saline. Continue monitor renal parameters. May require dialysis treatment depending on the how her condition evolves. Previously Consider transfusion Urine studies Adjust blood pressure medication Albumin bolus Norman catheter, intake and output Monitor renal parameters Avoid nephrotoxic's Antibiotics Per orders Subjective ROS Limited/Unobtainable: Yes Objective Objective Last 24 Hour Vital Signs Date Time Temp Pulse Resp B/P (MAP) Pulse Ox O2 Delivery O2 Flow Rate FiO2 12/01/19 12:59 99.3 12/01/19 12:28 154/72 12/01/19 12:00 65 12/01/19 12:00 60 12/01/19 12:00 100.8 65 20 147/69 (95) 100 12/01/19 12:00 99.0 65 20 147/69 (95) 100 12/01/19 12:00 60 12/01/19 12:00 Mechanical Ventilator 12/01/19 11:07 64 23 70 12/01/19 09:40 66 153/70 12/01/19 08:00 96.8 63 18 150/72 (98) 100 12/01/19 08:00 96.8 63 18 150/72 (98) 100 12/01/19 08:00 63 12/01/19 08:00 70 12/01/19 08:00 70 12/01/19 08:00 Mechanical Ventilator 12/01/19 08:00 63 12/01/19 07:50 68 25 70 12/01/19 05:30 156/70 12/01/19 04:00 51 12/01/19 04:00 98.0 60 18 140/64 (89) 99 12/01/19 04:00 80 12/01/19 04:00 Mechanical Ventilator 10/18/20 03:03 59 23 70 12/01/19 00:04 122/56 12/01/19 00:01 101.0 12/01/19 00:00 100.0 76 18 122/56 (78) 98 12/01/19 00:00 Mechanical Ventilator 12/01/19 00:00 80 11/30/19 23:44 64 11/30/19 22:56 75 26 70 11/30/19 21:03 72 138/68 11/30/19 20:00 80 11/30/19 20:00 80 11/30/19 20:00 100.1 73 18 134/78 (96) 99 11/30/19 20:00 Mechanical Ventilator 11/30/19 19:33 80 26 70 11/30/19 17:51 100.0 11/30/19 17:20 147/72 11/30/19 16:10 80 11/30/19 16:00 Mechanical Ventilator 11/30/19 16:00 85 11/30/19 16:00 100.0 78 18 147/72 (97) 100 11/30/19 15:00 103 21 70 Intake and Output 11/30/19 12/01/19 19:00 07:00 Intake Total 830 ml 405 ml Output Total 750 ml 800 ml Balance 80 ml -395 ml Intake Free Water 50 ml IV Total 155 ml Blood Product 250 ml Other 780 ml Output Urine Total 750 ml 800 ml # Bowel Movements 1 Current Medications Medications (Trade) Dose Ordered Sig/Penny Route PRN Reason Start Time Stop Time Status Last Admin Dose Admin Acetaminophen (Tylenol) 650 mg Q4H PRN GT Temp >100.5 11/29/19 04:30 12/29/19 04:29 12/01/19 12:29 Acetaminophen/ Hydrocodone Bitart (Ottosen 10325) 1 tab Q4H PRN GT For moderate pain 11/29/19 15:30 12/06/19 15:29 Albuterol/ Ipratropium (Albuterol/ Ipratropium) 3 ml Q3H PRN HHN Shortness of Breath 11/29/19 01:30 12/04/19 01:29 Ascorbic Acid (Vitamin C) 500 mg DAILY GT 11/29/19 09:00 12/29/19 08:59 12/01/19 09:40 Barium Sulfate (Readi-Cat 2) 450 ml NOW PRN ORAL Radiology Procedure 10/16/20 14:15 12/01/19 14:14 Clonidine HCl (Catapres TTS-1) 1 patch ONCE A WEEK TDERMAL 12/03/19 09:00 03/02/20 08:59 Clotrimazole (Lotrimin) 1 applic THREE TIMES A DAY TOPIC 12/01/19 13:00 02/29/20 12:59 Epoetin Gelacio (Epoetin Gelacio-EPBX(NON ESRD)) 10,000 unit MON-MON-MON SUBQ 11/29/19 21:00 02/27/20 20:59 11/29/19 20:49 Heparin Sodium (Porcine) (Heparin 5000 units/ml) 5,000 units EVERY 12 HOURS SUBQ 11/29/19 09:00 01/13/20 08:59 11/29/19 20:50 Hydralazine HCl (Apresoline) 25 mg Q6HR GT 11/29/19 18:00 02/27/20 17:59 12/01/19 12:28 Hydromorphone HCl (Dilaudid) 2 mg Q6H PRN GT Severe Pain (Pain Scale 7-10) 11/29/19 01:30 12/06/19 01:29 Lansoprazole (Prevacid) 30 mg DAILY GT 12/01/19 12:00 12/31/19 11:59 12/01/19 12:28 Meropenem 500 mg/ Sodium Chloride 55 ml @ 110 mls/hr Q12H IVPB 11/29/19 15:00 12/04/19 14:59 12/01/19 02:32 Metoclopramide HCl (Reglan) 5 mg Q6HR GT 11/29/19 06:00 12/29/19 05:59 12/01/19 12:28 Metolazone (Zaroxolyn) 2.5 mg QHS GT 11/29/19 21:00 12/29/19 20:59 11/30/19 20:59 Metolazone (Zaroxolyn) 5 mg DAILY GT 11/29/19 09:00 12/29/19 08:59 12/01/19 09:40 Metoprolol Tartrate (Lopressor) 25 mg Q12HR ORAL 12/01/19 09:00 02/29/20 08:59 12/01/19 09:40 Polyethylene Glycol (Miralax) 17 gm BEDTIME GT 11/29/19 21:00 12/29/19 20:59 [facility] 1 ea DAILY PRN MISC Per rx protocol 11/29/19 01:15 12/29/19 01:14 Vitamin B Complex/ Vit C/Folic Acid (Nephrovite) 1 tab DAILY GT 11/29/19 09:00 12/29/19 08:59 12/01/19 09:39 Zinc Sulfate (Zinc Sulfate) 220 mg DAILY GT 11/29/19 09:00 02/27/20 08:59 12/01/19 09:40 Laboratory Tests 11/30/19 20:33: POC Whole Blood Glucose 84 12/01/19 07:25: POC Whole Blood Glucose [Pending] 12/01/19 08:50: White Blood Count 16.5H, Red Blood Count 2.92L, Hemoglobin 8.4L, Hematocrit 24.6L, Mean Corpuscular Volume 84, Mean Corpuscular Hemoglobin 28.9, Mean Corpuscular Hemoglobin Concent 34.4, Red Cell Distribution Width 13.7, Platelet Count 328, Mean Platelet Volume 4.4L, Neutrophils (%) (Auto) , Lymphocytes (%) (Auto) , Monocytes (%) (Auto) , Eosinophils (%) (Auto) , Basophils (%) (Auto) , Differential Total Cells Counted 100, Neutrophils % (Manual) 88H, Lymphocytes % (Manual) 10L, Monocytes % (Manual) 2, Eosinophils % (Manual) 0, Basophils % (Manual) 0, Band Neutrophils 0, Platelet Estimate Adequate, Platelet Morphology Normal, Hypochromasia 1+, Erythrocyte Sedimentation Rate 28H, Prothrombin Time 19.5H, Prothromb Time International Ratio 1.9H, Activated Partial Thromboplast Time 33, Sodium Level 130L, Potassium Level 3.6, Chloride Level 98, Carbon Dioxide Level 15L, Anion Gap 17H, Blood Urea Nitrogen 127H, Creatinine 3.2H, Estimat Glomerular Filtration Rate 15.5, Glucose Level 130H, Uric Acid 7.7H, Calcium Level 7.9L, Phosphorus Level 5.2H, Magnesium Level 3.2H, Total Bilirubin 0.4, Aspartate Amino Transf (AST/SGOT) 20, Alanine Aminotransferase (ALT/SGPT) 10L, Alkaline Phosphatase 120H, Troponin I 0.121H, C-Reactive Protein, Quantitative 5.8H, Total Protein 6.7, Albumin 3.3L, Globulin 3.4, A lbumin/Globulin Ratio 1.0, Triglycerides Level 23L, Cholesterol Level 51, LDL Cholesterol 29, HDL Cholesterol 21L, Cholesterol/HDL Ratio 2.4L, Amylase Level 188H, Lipase 1415H, CA 19-9 Antigen [Pending] 12/01/19 10:04: POC Whole Blood Glucose 114H 12/01/19 12:21: POC Whole Blood Glucose [Pending] Height (Feet): 5 Height (Inches): 4.00 Weight (Pounds): 150 General Appearance: no apparent distress EENT: other - Trach to vent Cardiovascular: normal rate Respiratory/Chest: decreased breath sounds Abdomen: distended Johnny Houston MD Dec 01, 2019 13:22
[2019-12-01] MEDS ORDERED: NaCl 3% 500ml 500 ML IV ONE (14:00)
--- NOTE | 2019-12-01 14:31 | Surgery Progress Note ---
Surgery Progress Note Subjective Additional Comments febrile HD stable labs noted exam stable on abx on support Objective Last 24 Hour Vital Signs Date Time Temp Pulse Resp B/P (MAP) Pulse Ox O2 Delivery O2 Flow Rate FiO2 12/01/19 12:59 99.3 12/01/19 12:28 154/72 12/01/19 12:00 65 12/01/19 12:00 60 12/01/19 12:00 100.8 65 20 147/69 (95) 100 12/01/19 12:00 99.0 65 20 147/69 (95) 100 12/01/19 12:00 60 12/01/19 12:00 Mechanical Ventilator 12/01/19 11:07 64 23 70 12/01/19 09:40 66 153/70 12/01/19 08:00 96.8 63 18 150/72 (98) 100 12/01/19 08:00 96.8 63 18 150/72 (98) 100 12/01/19 08:00 63 12/01/19 08:00 70 12/01/19 08:00 70 12/01/19 08:00 Mechanical Ventilator 12/01/19 08:00 63 12/01/19 07:50 68 25 70 12/01/19 05:30 156/70 12/01/19 04:00 51 12/01/19 04:00 98.0 60 18 140/64 (89) 99 12/01/19 04:00 80 12/01/19 04:00 Mechanical Ventilator 12/01/19 03:03 59 23 70 12/01/19 00:04 122/56 12/01/19 00:01 101.0 12/01/19 00:00 100.0 76 18 122/56 (78) 98 12/01/19 00:00 Mechanical Ventilator 12/01/19 00:00 80 11/30/19 23:44 64 11/30/19 22:56 75 26 70 11/30/19 21:03 72 138/68 11/30/19 20:00 80 11/30/19 20:00 80 11/30/19 20:00 100.1 73 18 134/78 (96) 99 11/30/19 20:00 Mechanical Ventilator 11/30/19 19:33 80 26 70 11/30/19 17:51 100.0 10/17/20 17:20 147/72 11/30/19 16:10 80 11/30/19 16:00 Mechanical Ventilator 11/30/19 16:00 85 11/30/19 16:00 100.0 78 18 147/72 (97) 100 11/30/19 15:00 103 21 70 I&O Intake and Output 11/30/19 12/01/19 19:00 07:00 Intake Total 830 ml 405 ml Output Total 750 ml 800 ml Balance 80 ml -395 ml Intake Free Water 50 ml IV Total 155 ml Blood Product 250 ml Other 780 ml Output Urine Total 750 ml 800 ml # Bowel Movements 1 Dressing: other Wound: other Cardiovascular: RSR Respiratory: decreased breath sounds Abdomen: soft, non-tender, present bowel sounds Extremities: no tenderness, no cyanosis Laboratory Tests Test 11/30/19 20:33 12/01/19 07:25 12/01/19 08:50 12/01/19 10:04 POC Whole Blood Glucose 84 MG/DL (74-106) Pending 114 MG/DL (74-106) H White Blood Count 16.5 K/UL (4.8-10.8) H Red Blood Count 2.92 M/UL (4.20-5.40) L Hemoglobin 8.4 G/DL (12.0-16.0) L Hematocrit 24.6 % (37.0-47.0) L Mean Corpuscular Volume 84 FL (80-99) Mean Corpuscular Hemoglobin 28.9 PG (27.0-31.0) Mean Corpuscular Hemoglobin Concent 34.4 G/DL (32.0-36.0) Red Cell Distribution Width 13.7 % (11.6-14.8) Platelet Count 328 K/UL (150-450) Mean Platelet Volume 4.4 FL (6.5-10.1) L Neutrophils (%) (Auto) % (45.0-75.0) Lymphocytes (%) (Auto) % (20.0-45.0) Monocytes (%) (Auto) % (1.0-10.0) Eosinophils (%) (Auto) % (0.0-3.0) Basophils (%) (Auto) % (0.0-2.0) Differential Total Cells Counted 100 Neutrophils % (Manual) 88 % (45-75) H Lymphocytes % (Manual) 10 % (20-45) L Monocytes % (Manual) 2 % (1-10) Eosinophils % (Manual) 0 % (0-3) Basophils % (Manual) 0 % (0-2) Band Neutrophils 0 % (0-8) Platelet Estimate Adequate Platelet Morphology Normal Hypochromasia 1+ Erythrocyte Sedimentation Rate 28 MM/HR (0-20) H Prothrombin Time 19.5 SEC (9.30-11.50) H Prothromb Time International Ratio 1.9 (0.9-1.1) H Activated Partial Thromboplast Time 33 SEC (23-33) Sodium Level 130 MMOL/L (136-145) L Potassium Level 3.6 MMOL/L (3.5-5.1) Chloride Level 98 MMOL/L (98-107) Carbon Dioxide Level 15 MMOL/L (21-32) L Anion Gap 17 mmol/L (5-15) H Blood Urea Nitrogen 127 mg/dL (7-18) H Creatinine 3.2 MG/DL (0.55-1.30) H Estimat Glomerular Filtration Rate 15.5 mL/min (>60) Glucose Level 130 MG/DL (74-106) H Uric Acid 7.7 MG/DL (2.6-7.2) H Calcium Level 7.9 MG/DL (8.5-10.1) L Phosphorus Level 5.2 MG/DL (2.5-4.9) H Magnesium Level 3.2 MG/DL (1.8-2.4) H Total Bilirubin 0.4 MG/DL (0.2-1.0) Aspartate Amino Transf (AST/SGOT) 20 U/L (15-37) Alanine Aminotransferase (ALT/SGPT) 10 U/L (12-78) L Alkaline Phosphatase 120 U/L (46-116) H Troponin I 0.121 ng/mL (0.000-0.056) C-Reactive Protein, Quantitative 5.8 mg/dL (0.00-0.90) H Total Protein 6.7 G/DL (6.4-8.2) Albumin 3.3 G/DL (3.4-5.0) L Globulin 3.4 g/dL Albumin/Globulin Ratio 1.0 (1.0-2.7) Triglycerides Level 23 MG/DL (30-150) L Cholesterol Level 51 MG/DL (< 200) LDL Cholesterol 29 mg/dL (<100) HDL Cholesterol 21 MG/DL (40-60) L Cholesterol/HDL Ratio 2.4 (3.3-4.4) L Amylase Level 188 U/L (25-115) H Lipase 1415 U/L (73-393) H CA 19-9 Antigen Pending Test 12/01/19 12:21 POC Whole Blood Glucose Pending Plan Problems: (1) Dehydration (2) Acidosis (3) Anemia (4) Depression (5) Pancreatitis Assessment & Plan: 49F leukocytosis, elevated lip, lft's noted septic. work up ongoing npo iv fluids iv abx imaging ordered lipase worsening npo pending CT DAILY ESTIMATED NEEDS: Needs based on Critical care, wound, 56.8kg 28-33 kcals/kg [id number] total kcals 1.25-2 g protein/kg 71-114 g total protein Fluid per MD NUTRITION DIAGNOSIS: * Swallowing difficulty R/T dysphagia, respiratory status as evidenced by vent dep via trach, GT Dep. * Increase kcal and pro needs r/t wound healing and wasting as evidenced by stage 4 sacral wound. CURRENT TF:Nepro @ 40ml/hr x 20 hrs ENTERAL NUTRITION RECOMMENDATIONS: Nepro @ 45ml/hr x 20 hrs to provide 900ml, 1620kcal, 73g prot, 654ml free water * Increase TF to goal of 45ml/hr x20 hrs to better meet est needs * Water flush per MD * HOB over 30 degrees ADDITIONAL RECOMMENDATIONS: * Per SNF: HT=63", IS=026imm -> rec calibrated bedscale wt (Bed reads 79.4kg) * Rec TF increase as above to better meet est needs * F/up w/ H&P * WC-> continue Vit C, ZnSO4, Nephrovite Add FRANKLIN in 4oz BID for wound care (6) Pleural effusion (7) Renal failure (8) Respiratory failure (9) Schizophrenia (10) Hypoxia (11) Sepsis (12) UTI (urinary tract infection) (13) Pneumonia (14) ARF (acute renal failure) (15) NSTEMI (non-ST elevated myocardial infarction) (16) Tracheostomy in place (17) Feeding by G-tube (18) JAVIER (acute kidney injury) (19) Acute encephalopathy (20) Sacral decubitus ulcer, stage IV Assessment & Plan: Pt presented on admission with Full thickness stage 4 Sacral Pressure injury which extends into R gluteal cheek. Base of wound is granular with bone exposure at base of sacrococcygeal. Pt presented on admission with tracheostomy, GT, Full Thickness Pressure Injury Sacrococcygeal.Base of wound is 40% soft necrosis, 60% noni with undermined borders(L)5.8cm x (W)5.5cm x (D)1.5cm, undermining clockwise 10-1 by 2.7cm @12o'clock.(+) Epibole along edges with scattered slough. Small area that is purple and indurated noted clockwise @7-8o'clock along borders.Small amt serous exudate noted.Mild odor noted. hyperpigmentation periwound. At L ischium are two areas of dry pink epithelial with surrounding hyperpigmentation. Both heels are boggy with [id number] erythema. Tx.Plan: Cleanse sacral wound with Saline. Loosely pack with Hydrogel impregnated kerlix. Apply Moisture Barrier Paste periwound. Cover with Optifoam drsg Daily and prn. Apply Cavilon Skin Barrier to both heels and malleoli. Cover eachsite with Optifoam drsgs. Change every 7 days and prn. Reposition at least every 2hours or as tolerated. Off-load heels with pillow. APM/Maxwell Mattress overlay. (21) Chronic respiratory failure (22) Hypokalemia (23) Ascites (24) Bacteremia (25) Hypernatremia (26) Proteinuria (27) Electrolyte imbalance (28) Pacemaker (29) ACS (acute coronary syndrome) (30) Aortic dissection, thoracic (31) Respiratory failure, acute and chronic (32) JAVIER (acute kidney injury) (33) Abrasion of lip, initial encounter (34) COPD with exacerbation (35) Elevated alkaline phosphatase level (36) Renal failure (ARF), acute on chronic (37) HCAP (healthcare-associated pneumonia) (38) GT Lane Murphy Dec 01, 2019 14:31
[2019-12-01 16:00] VITALS: BP 130/58
--- NOTE | 2019-12-01 16:38 | Cardiology Progress Note ---
Subjective DATE OF SERVICE: Dec 01, 2019 On vent support Troponin trending down Multiple electrolyte abnormalities Renal function remains impaired Objective Last 24 Hour Vital Signs Date Time Temp Pulse Resp B/P (MAP) Pulse Ox O2 Delivery O2 Flow Rate FiO2 12/01/19 16:00 Mechanical Ventilator 12/01/19 16:00 60 12/01/19 16:00 97.0 60 20 130/58 (82) 100 12/01/19 15:00 62 22 70 12/01/19 12:59 99.3 12/01/19 12:28 154/72 12/01/19 12:00 65 12/01/19 12:00 60 12/01/19 12:00 100.8 65 20 147/69 (95) 100 12/01/19 12:00 99.0 65 20 147/69 (95) 100 12/01/19 12:00 60 12/01/19 12:00 Mechanical Ventilator 12/01/19 11:07 64 23 70 12/01/19 09:40 66 153/70 12/01/19 08:00 96.8 63 18 150/72 (98) 100 12/01/19 08:00 96.8 63 18 150/72 (98) 100 12/01/19 08:00 63 12/01/19 08:00 70 12/01/19 08:00 70 12/01/19 08:00 Mechanical Ventilator 12/01/19 08:00 63 12/01/19 07:50 68 25 70 12/01/19 05:30 156/70 12/01/19 04:00 51 12/01/19 04:00 98.0 60 18 140/64 (89) 99 12/01/19 04:00 80 12/01/19 04:00 Mechanical Ventilator 12/01/19 03:03 59 23 70 12/01/19 00:04 122/56 12/01/19 00:01 101.0 12/01/19 00:00 100.0 76 18 122/56 (78) 98 12/01/19 00:00 Mechanical Ventilator 12/01/19 00:00 80 11/30/19 23:44 64 11/30/19 22:56 75 26 70 11/30/19 21:03 72 138/68 11/30/19 20:00 80 11/30/19 20:00 80 11/30/19 20:00 100.1 73 18 134/78 (96) 99 11/30/19 20:00 Mechanical Ventilator 11/30/19 19:33 80 26 70 11/30/19 17:51 100.0 11/30/19 17:20 147/72 ROS: no changes from my prior evaluation 11/30/19 HEENT: Thin secretions ET Tube RHYTHM: ST LUNGS: bilateral rhonchi CARDIAC: normal rate, regular rhythm, normal S1 and S2 ABDOMEN: normal bowel sounds, G-Tube intact EXTREMITIES: +2 edema Laboratory Tests Test 11/30/19 20:33 12/01/19 07:25 12/01/19 08:50 12/01/19 10:04 POC Whole Blood Glucose 84 MG/DL (74-106) Pending 114 MG/DL (74-106) H White Blood Count 16.5 K/UL (4.8-10.8) H Red Blood Count 2.92 M/UL (4.20-5.40) L Hemoglobin 8.4 G/DL (12.0-16.0) L Hematocrit 24.6 % (37.0-47.0) L Mean Corpuscular Volume 84 FL (80-99) Mean Corpuscular Hemoglobin 28.9 PG (27.0-31.0) Mean Corpuscular Hemoglobin Concent 34.4 G/DL (32.0-36.0) Red Cell Distribution Width 13.7 % (11.6-14.8) Platelet Count 328 K/UL (150-450) Mean Platelet Volume 4.4 FL (6.5-10.1) L Neutrophils (%) (Auto) % (45.0-75.0) Lymphocytes (%) (Auto) % (20.0-45.0) Monocytes (%) (Auto) % (1.0-10.0) Eosinophils (%) (Auto) % (0.0-3.0) Basophils (%) (Auto) % (0.0-2.0) Differential Total Cells Counted 100 Neutrophils % (Manual) 88 % (45-75) H Lymphocytes % (Manual) 10 % (20-45) L Monocytes % (Manual) 2 % (1-10) Eosinophils % (Manual) 0 % (0-3) Basophils % (Manual) 0 % (0-2) Band Neutrophils 0 % (0-8) Platelet Estimate Adequate Platelet Morphology Normal Hypochromasia 1+ Erythrocyte Sedimentation Rate 28 MM/HR (0-20) H Prothrombin Time 19.5 SEC (9.30-11.50) H Prothromb Time International Ratio 1.9 (0.9-1.1) H Activated Partial Thromboplast Time 33 SEC (23-33) Sodium Level 130 MMOL/L (136-145) L Potassium Level 3.6 MMOL/L (3.5-5.1) Chloride Level 98 MMOL/L (98-107) Carbon Dioxide Level 15 MMOL/L (21-32) L Anion Gap 17 mmol/L (5-15) H Blood Urea Nitrogen 127 mg/dL (7-18) H Creatinine 3.2 MG/DL (0.55-1.30) H Estimat Glomerular Filtration Rate 15.5 mL/min (>60) Glucose Level 130 MG/DL (74-106) H Uric Acid 7.7 MG/DL (2.6-7.2) H Calcium Level 7.9 MG/DL (8.5-10.1) L Phosphorus Level 5.2 MG/DL (2.5-4.9) H Magnesium Level 3.2 MG/DL (1.8-2.4) H Total Bilirubin 0.4 MG/DL (0.2-1.0) Aspartate Amino Transf (AST/SGOT) 20 U/L (15-37) Alanine Aminotransferase (ALT/SGPT) 10 U/L (12-78) L Alkaline Phosphatase 120 U/L (46-116) H Troponin I 0.121 ng/mL (0.000-0.056) C-Reactive Protein, Quantitative 5.8 mg/dL (0.00-0.90) H Total Protein 6.7 G/DL (6.4-8.2) Albumin 3.3 G/DL (3.4-5.0) L Globulin 3.4 g/dL Albumin/Globulin Ratio 1.0 (1.0-2.7) Triglycerides Level 23 MG/DL (30-150) L Cholesterol Level 51 MG/DL (< 200) LDL Cholesterol 29 mg/dL (<100) HDL Cholesterol 21 MG/DL (40-60) L Cholesterol/HDL Ratio 2.4 (3.3-4.4) L Amylase Level 188 U/L (25-115) H Lipase 1415 U/L (73-393) H CA 19-9 Antigen Pending Test 12/01/19 12:21 POC Whole Blood Glucose Pending Microbiology Date/Time Source Procedure Growth Status 11/29/19 17:30 Sputum Gram Stain - Final Resulted 11/29/19 17:30 Sputum Culture - Preliminary Gram Negative Arnaud Resulted 11/29/19 17:05 Nasopharynx - Final Complete 11/29/19 17:05 Nasopharynx - Final Complete 11/29/19 16:30 Nasopharynx SARS-CoV-2 RdRp Gene Assay - Final Complete 11/29/19 13:55 Pleural Fluid Gram Stain - Final Resulted 11/29/19 13:55 Pleural Fluid Body Fluid Culture - Preliminary NO GROWTH AFTER 24 HOURS Resulted 11/28/19 20:40 Rectum - Final NO CARBAPENEM-RESISTANT ENTEROBACTERI... Complete 11/28/19 20:40 Rectum VRE Culture - Final Enterococcus Faecalis - Vre Enterococcus Faecium - Vre Complete 11/28/19 20:40 Nasal Nares MRSA Culture - Final Staphylococcus Aureus - Mrsa Complete 11/28/19 20:30 Urine,Clean Catch Urine Culture - Preliminary Morganella Morg Spp Morganii Proteus Mirabilis Esbl Resulted 11/28/19 20:30 Nasopharynx SARS-CoV-2 RdRp Gene Assay - Final Complete 11/28/19 20:30 Blood Blood Culture - Preliminary NO GROWTH AFTER 48 HOURS Resulted 11/28/19 20:15 Blood Blood Culture - Preliminary NO GROWTH AFTER 48 HOURS Resulted Assessment/Plan Assessment/Plan Respiratory failure Acute myocardial ischemia and possible NSTE myocardial infarction Ischemic cardiomyopathy - s/p CABG Hx AAA repair Paroxysmal AFib Pacemaker explant due to infection Decubitus sepsis Low lipid parameters Renal failure ac/chr Antimicrobials Anti-plt therapy Titrate beta flori Vent support Diuresis as able Await final blood culture results Deni Willams MD Dec 01, 2019 16:38
--- NOTE | 2019-12-01 19:29 | Cardiology Report ---
ADDENDUM APPROVED REPORT EKG Measurement Heart [id number] <Conclusion> Sinus bradycardia Rightward axis Anteroseptal infarct, age undetermined Nonspecific ST and T wave abnormality Abnormal ECG
[2019-12-01 20:00] VITALS: BP 149/71
[2019-12-01] MEDS: Miralax 17gm pkt GT SCH (20:56)
[2019-12-01] MEDS: metOLazone 2.5 MG TAB GT SCH (20:56)
--- NOTE | 2019-12-01 21:05 | General Progress Note ---
Subjective Constitutional: Reports: no symptoms HEENT: Reports: no symptoms Cardiovascular: Reports: no symptoms Respiratory: Reports: no symptoms Genitourinary: Reports: no symptoms Neurologic/Psychiatric: Reports: no symptoms Hematologic/Lymphatic: Reports: no symptoms Allergies: Coded Allergies: No Known Allergies (Unverified , 10/10/17) Objective Last 24 Hour Vital Signs Date Time Temp Pulse Resp B/P (MAP) Pulse Ox O2 Delivery O2 Flow Rate FiO2 12/01/19 20:00 98.2 67 20 149/71 (97) 100 12/01/19 20:00 Mechanical Ventilator 12/01/19 20:00 60 12/01/19 19:54 61 21 60 12/01/19 19:48 61 12/01/19 17:59 134/63 12/01/19 16:00 Mechanical Ventilator 12/01/19 16:00 66 12/01/19 16:00 60 12/01/19 16:00 97.0 60 20 130/58 (82) 100 12/01/19 15:00 62 22 70 12/01/19 12:59 99.3 12/01/19 12:28 154/72 12/01/19 12:00 65 12/01/19 12:00 60 12/01/19 12:00 100.8 65 20 147/69 (95) 100 12/01/19 12:00 99.0 65 20 147/69 (95) 100 12/01/19 12:00 60 12/01/19 12:00 Mechanical Ventilator 12/01/19 11:07 64 23 70 12/01/19 09:40 66 153/70 12/01/19 08:00 96.8 63 18 150/72 (98) 100 12/01/19 08:00 96.8 63 18 150/72 (98) 100 12/01/19 08:00 63 12/01/19 08:00 70 12/01/19 08:00 70 12/01/19 08:00 Mechanical Ventilator 12/01/19 08:00 63 12/01/19 07:50 68 25 70 12/01/19 05:30 156/70 12/01/19 04:00 51 12/01/19 04:00 98.0 60 18 140/64 (89) 99 12/01/19 04:00 80 12/01/19 04:00 Mechanical Ventilator 12/01/19 03:03 59 23 70 12/01/19 00:04 122/56 12/01/19 00:01 101.0 12/01/19 00:00 100.0 76 18 122/56 (78) 98 12/01/19 00:00 Mechanical Ventilator 12/01/19 00:00 80 11/30/19 23:44 64 11/30/19 22:56 75 26 70 11/30/19 21:03 72 138/68 Intake and Output 11/30/19 12/01/19 19:00 07:00 Intake Total 830 ml 405 ml Output Total 750 ml 800 ml Balance 80 ml -395 ml Intake Free Water 50 ml IV Total 155 ml Blood Product 250 ml Other 780 ml Output Urine Total 750 ml 800 ml # Bowel Movements 1 Laboratory Tests 12/01/19 07:25: POC Whole Blood Glucose [Pending] 12/01/19 08:50: White Blood Count 16.5H, Red Blood Count 2.92L, Hemoglobin 8.4L, Hematocrit 24.6L, Mean Corpuscular Volume 84, Mean Corpuscular Hemoglobin 28.9, Mean Corpuscular Hemoglobin Concent 34.4, Red Cell Distribution Width 13.7, Platelet Count 328, Mean Platelet Volume 4.4L, Neutrophils (%) (Auto) , Lymphocytes (%) (Auto) , Monocytes (%) (Auto) , Eosinophils (%) (Auto) , Basophils (%) (Auto) , Differential Total Cells Counted 100, Neutrophils % (Manual) 88H, Lymphocytes % (Manual) 10L, Monocytes % (Manual) 2, Eosinophils % (Manual) 0, Basophils % (Manual) 0, Band Neutrophils 0, Platelet Estimate Adequate, Platelet Morphology Normal, Hypochromasia 1+, Erythrocyte Sedimentation Rate 28H, Prothrombin Time 19.5H, Prothromb Time International Ratio 1.9H, Activated Partial Thromboplast Time 33, Sodium Level 130L, Potassium Level 3.6, Chloride Level 98, Carbon Dioxide Level 15L, Anion Gap 17H, Blood Urea Nitrogen 127H, Creatinine 3.2H, Estimat Glomerular Filtration Rate 15.5, Glucose Level 130H, Uric Acid 7.7H, Calcium Level 7.9L, Phosphorus Level 5.2H, Magnesium Level 3.2H, Total Bilirubin 0.4, Aspartate Amino Transf (AST/SGOT) 20, Alanine Aminotransferase (ALT/SGPT) 10L, Alkaline Phosphatase 120H, Troponin I 0.121H, C-Reactive Protein, Quantitative 5.8H, Total Protein 6.7, Albumin 3.3L, Globulin 3.4, Albumin/Globulin Ratio 1.0, Triglycerides Level 23L, Cholesterol Level 51, LDL Cholesterol 29, HDL Cholesterol 21L, Cholesterol/HDL Ratio 2.4L, Amylase Level 188H, Lipase 1415H, CA 19-9 Antigen [Pending] 12/01/19 10:04: POC Whole Blood Glucose 114H 12/01/19 12:21: POC Whole Blood Glucose [Pending] 12/01/19 17:54: POC Whole Blood Glucose [Pending] Height (Feet): 5 Height (Inches): 4.00 Weight (Pounds): 150 General Appearance: WD/WN, lethargic, other - Somnolent EENT: normal ENT inspection, other - Periorbital edema resolved Neck: supple Cardiovascular: normal rate, regular rhythm, no gallop/murmur, no JVD Respiratory/Chest: lungs clear, normal breath sounds, no respiratory distress, no accessory muscle use Abdomen: normal bowel sounds, non tender, soft, no organomegaly, no mass Genitourinary/Rectal: other - Labial edema resolved Extremities: non-tender Neurologic: other - Somnolent arousable and then fall asleep again Assessment/Plan Status Narrative Patient is somnolent febrile hemodynamically stable and hypovolemia responded well to volume expansion by Albumin and diuresis thus several days see intake and output are negative portion Fever resolved tachycardia and tachycardia is controlled and a leukocytosis decline from 29,000-16,000 in the previous admission she required high-dose of narcotic analgesic to control her 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 Lucas Canales MD, MD Dec 01, 2019 21:04
[2019-12-01] MEDS ORDERED: HYDROmorphone 2mg tab ORAL PRN (22:00)
[2019-12-02] VITALS (7 sets, daily range): BP systolic 131–164; BP diastolic 58–83
[2019-12-02] MEDS: Meropenem 500 MG in NS 55 ML IVPB SCH ×2 (02:54→14:07)
[2019-12-02] MEDS: Acetaminophen 650mg/20.3ml GT PRN (04:08)
[2019-12-02 04:32] LABS: BASOPHILS % (AUTO) 0.3 % (0.0-2.0); EOSINOPHILS % (AUTO) 2.2 % (0.0-3.0); HEMATOCRIT 27.3 % (37.0-47.0); HEMOGLOBIN 9.2 G/DL (12.0-16.0); LYMPHOCYTES % (AUTO) 8.9 % (20.0-45.0); MEAN CORPUSCULAR VOLUME 84 FL (80-99); MONOCYTES % (AUTO) 4.2 % (1.0-10.0); NEUTROPHILS % (AUTO) 84.4 % (45.0-75.0); PLATELET COUNT 358 K/UL (150-450); RED BLOOD COUNT 3.24 M/UL (4.20-5.40); WHITE BLOOD COUNT 15.7 K/UL (4.8-10.8)
[2019-12-02 04:41] LABS: ALANINE AMINOTRANSFERASE < 6 U/L (12-78); ALKALINE PHOSPHATASE 131 U/L (46-116); ASPARTATE AMINO TRANSFERASE 22 U/L (15-37); BILIRUBIN,TOTAL 0.4 MG/DL (0.2-1.0); BLOOD UREA NITROGEN 134 mg/dL (7-18); CARBON DIOXIDE 15 MMOL/L (21-32); CHLORIDE 99 MMOL/L (98-107); CREATININE 3.4 MG/DL (0.55-1.30); POTASSIUM 3.9 MMOL/L (3.5-5.1); SODIUM 134 MMOL/L (136-145)
[2019-12-02 04:50] LABS: PHOSPHORUS 5.6 MG/DL (2.5-4.9)
[2019-12-02 05:00] LABS: AMYLASE 187 U/L (25-115)
[2019-12-02] MEDS: HydrALAZINE 25mg tab GT SCH ×4 (05:29→23:11)
--- NOTE | 2019-12-02 06:49 | Hematology/Onc Progress Note ---
Assessment/Plan Assessment/Plan Assessment and Recs # Leukocytosis, now with uti, though in past has had pna, pacemaker site infection and bacteremia --> is s/p pm removal and also pocket infection is better --> per cards recs in re to tach/davis --> wbc 29-->16 --> ABX vanc/angelo --> ID recs are noted # Anemia of chronic disease due to underlying chronic medical issues, multifactorial --> Anemia workup has been reviewed, cw acd --> No evidence of hemolysis is noted, peripheral smear has been reviewed. --> Hgb goal >7. Transfuse prn. --> Epogen started sq --> Medications have been reviewed --> low threshold for gi evaluation in case has occult + --> hgb 7.1-->7.8-->>>6.7->9.2 --> 1 unit prbc1 # Thrombocytois is likely reactive process, is s/p infection --> plt trend 358 --> p smear reviewed # Acute hypoxic respiratory failure s/p intubation 11/23- ?ARDS --> on vent/trach # JAVIER initially >2 --> on ivfs -> may need hd per Dr. [place] # Elevated d-dimer --> venous duplex and v/q scan neg --> negative results # Dysphagia s/p peg # Thoracic aortic dissection s/p repair early 2017 # Psychiatric history on ativan/haldol # [place] resident # Dvt ppx --> heparin sq The timing of this note does not necessarily reflect the time of the patient was seen. Greatly appreciate consultation. Subjective Allergies: Coded Allergies: No Known Allergies (Unverified , 10/10/17) All Systems: reviewed and negative except above Subjective 12/01 on vent, with gtube and raymond, no bleeding, labs are noted Objective Objective Current Medications Medications (Trade) Dose Ordered Sig/Penny Route PRN Reason Start Time Stop Time Status Last Admin Dose Admin Acetaminophen (Tylenol) 650 mg Q4H PRN GT Temp >100.5 11/29/19 04:30 12/29/19 04:29 12/02/19 04:08 Acetaminophen/ Hydrocodone Bitart (Counce 10/325) 1 tab Q4H PRN GT For moderate pain 11/29/19 15:30 12/06/19 15:29 Albuterol/ Ipratropium (Albuterol/ Ipratropium) 3 ml Q3H PRN HHN Shortness of Breath 11/29/19 01:30 12/04/19 01:29 Ascorbic Acid (Vitamin C) 500 mg DAILY GT 11/29/19 09:00 12/29/19 08:59 12/01/19 09:40 Barium Sulfate (Readi-Cat 2) 450 ml NOW PRN ORAL Radiology Procedure 12/01/19 21:15 12/03/19 21:14 Clonidine HCl (Catapres TTS-1) 1 patch ONCE A WEEK TDERMAL 12/03/19 09:00 03/02/20 08:59 Clotrimazole (Lotrimin) 1 applic THREE TIMES A DAY TOPIC 12/01/19 13:00 02/29/20 12:59 12/01/19 17:59 Epoetin Gelacio (Epoetin Gelacio-EPBX(NON ESRD)) 10,000 unit MON-MON-MON SUBQ 11/29/19 21:00 02/27/20 20:59 11/29/19 20:49 Heparin Sodium (Porcine) (Heparin 5000 units/ml) 5,000 units EVERY 12 HOURS SUBQ 11/29/19 09:00 01/13/20 08:59 12/01/19 20:58 Hydralazine HCl (Apresoline) 25 mg Q6HR GT 11/29/19 18:00 02/27/20 17:59 12/02/19 05:29 Hydromorphone HCl (Dilaudid) 2 mg Q8H PRN ORAL Severe Pain (Pain Scale 7-10) 12/01/19 22:00 12/08/19 21:59 Lansoprazole (Prevacid) 30 mg DAILY GT 12/01/19 12:00 12/31/19 11:59 12/01/19 12:28 Meropenem 500 mg/ Sodium Chloride 55 ml @ 110 mls/hr Q12H IVPB 11/29/19 15:00 12/04/19 14:59 12/02/19 02:54 Metoclopramide HCl (Reglan) 5 mg Q6HR GT 11/29/19 06:00 12/29/19 05:59 12/02/19 05:29 Metolazone (Zaroxolyn) 2.5 mg QHS GT 11/29/19 21:00 12/29/19 20:59 12/01/19 20:56 Metolazone (Zaroxolyn) 5 mg DAILY GT 11/29/19 09:00 12/29/19 08:59 12/01/19 09:40 Metoprolol Tartrate (Lopressor) 25 mg Q12HR ORAL 12/01/19 09:00 02/29/20 08:59 12/01/19 20:56 Polyethylene Glycol (Miralax) 17 gm BEDTIME GT 11/29/19 21:00 12/29/19 20:59 12/01/19 20:56 Vancomycin HCl (Vanco pharmacy to dose) 1 ea DAILY PRN MISC Per rx protocol 11/29/19 01:15 12/29/19 01:14 Vancomycin HCl 1 gm/Dextrose 275 ml @ 183.708 mls/hr ONCE ONCE IVPB 12/02/19 09:00 12/02/19 10:29 Vitamin B Complex/ Vit C/Folic Acid (Nephrovite) 1 tab DAILY GT 11/29/19 09:00 12/29/19 08:59 12/01/19 09:39 Zinc Sulfate (Zinc Sulfate) 220 mg DAILY GT 11/29/19 09:00 02/27/20 08:59 12/01/19 09:40 Last 24 Hour Vital Signs Date Time Temp Pulse Resp B/P (MAP) Pulse Ox O2 Delivery O2 Flow Rate FiO2 12/02/19 05:29 143/63 12/02/19 04:38 99.5 12/02/19 04:00 40 12/02/19 04:00 100.6 67 18 143/62 (89) 100 12/02/19 04:00 67 12/02/19 04:00 Mechanical Ventilator 12/02/19 03:44 60 20 40 12/02/19 00:00 55 12/02/19 00:00 40 12/02/19 00:00 Mechanical Ventilator 12/02/19 00:00 100.0 55 18 136/64 (88) 100 12/01/19 23:44 136/64 12/01/19 23:21 56 20 40 12/01/19 20:56 64 135/63 12/01/19 20:00 98.2 67 20 149/71 (97) 100 12/01/19 20:00 Mechanical Ventilator 12/01/19 20:00 60 12/01/19 19:54 61 21 60 12/01/19 19:48 61 12/01/19 17:59 134/63 12/01/19 16:00 Mechanical Ventilator 12/01/19 16:00 66 12/01/19 16:00 60 12/01/19 16:00 97.0 60 20 130/58 (82) 100 12/01/19 15:00 62 22 70 12/01/19 12:59 99.3 12/01/19 12:28 154/72 12/01/19 12:00 65 12/01/19 12:00 60 12/01/19 12:00 100.8 65 20 147/69 (95) 100 12/01/19 12:00 99.0 65 20 147/69 (95) 100 12/01/19 12:00 60 12/01/19 12:00 Mechanical Ventilator 12/01/19 11:07 64 23 70 12/01/19 09:40 66 153/70 12/01/19 08:00 96.8 63 18 150/72 (98) 100 12/01/19 08:00 96.8 63 18 150/72 (98) 100 12/01/19 08:00 63 12/01/19 08:00 70 12/01/19 08:00 70 12/01/19 08:00 Mechanical Ventilator 12/01/19 08:00 63 12/01/19 07:50 68 25 70 12/01/19 05:30 156/70 12/01/19 04:00 51 12/01/19 04:00 98.0 60 18 140/64 (89) 99 12/01/19 04:00 80 12/01/19 04:00 Mechanical Ventilator 12/01/19 03:03 59 23 70 12/01/19 00:04 122/56 12/01/19 00:01 101.0 12/01/19 00:00 100.0 76 18 122/56 (78) 98 12/01/19 00:00 Mechanical Ventilator 12/01/19 00:00 80 11/30/19 23:44 64 11/30/19 22:56 75 26 70 11/30/19 21:03 72 138/68 11/30/19 20:00 80 11/30/19 20:00 80 11/30/19 20:00 100.1 73 18 134/78 (96) 99 11/30/19 20:00 Mechanical Ventilator 11/30/19 19:33 80 26 70 11/30/19 17:51 100.0 11/30/19 17:20 147/72 11/30/19 16:10 80 11/30/19 16:00 Mechanical Ventilator 11/30/19 16:00 85 11/30/19 16:00 100.0 78 18 147/72 (97) 100 11/30/19 15:00 103 21 70 11/30/19 13:20 75 142/74 11/30/19 12:19 80 11/30/19 12:18 Mechanical Ventilator 11/30/19 12:15 142/74 11/30/19 12:00 75 11/30/19 11:40 100.8 75 18 142/74 (96) 96 11/30/19 11:16 75 23 70 11/30/19 11:11 100.8 11/30/19 10:30 101.5 11/30/19 08:00 80 11/30/19 08:00 Mechanical Ventilator 11/30/19 08:00 100.6 80 16 138/64 (88) 99 11/30/19 08:00 80 11/30/19 07:01 83 23 70 Intake and Output 12/01/19 12/02/19 19:00 07:00 Intake Total 142 ml 385 ml Output Total 600 ml 400 ml Balance -458 ml -15 ml IV Total 142 ml 385 ml Output Urine Total 600 ml 400 ml # Bowel Movements 1 Labs Test 11/29/19 09:20 11/29/19 10:59 11/29/19 13:15 11/29/19 13:55 Arterial Blood pH 7.350 (7.350-7.450) Arterial Blood Partial Pressure CO2 30.0 mmHg (35.0-45.0) Arterial Blood Partial Pressure O2 95.0 mmHg (75.0-100.0) Arterial Blood HCO3 16.3 mmol/L (22.0-26.0) Arterial Blood Oxygen Saturation 97.0 % (95-100) Arterial Blood Base Excess -8.3 (-2-2) Rojas Test Positive Lactic Acid Level 0.40 mmol/L (0.4-2.0) Albumin 2.5 G/DL (3.4-5.0) Urine Random Sodium 40 mmol/L (20-110) Body Fluid Source Pleural Body Fluid Volume 24 mL Body Fluid Appearance Hazy (Clear) Body Fluid pH 8.0 Body Fluid RBC 30 /CUMM Body Fluid Total Nucleated Cells 196 /CUMM Body Fluid Polynuclear WBCs (%) 2 % Body Fluid Mononuclear WBCs (%) 49 % Body Fluid Mesothelial Cells (%) 49 % Body Fluid Glucose 92 mg/dL (.) Body Fluid Total Protein 2.5 g/dL (.) Body Fluid Comment Test 11/29/19 16:20 11/30/19 07:30 11/30/19 12:00 11/30/19 20:33 White Blood Count 16.3 K/UL (4.8-10.8) 17.5 K/UL (4.8-10.8) Red Blood Count 2.37 M/UL (4.20-5.40) 2.45 M/UL (4.20-5.40) Hemoglobin 6.7 G/DL (12.0-16.0) 7.0 G/DL (12.0-16.0) Hematocrit 20.0 % (37.0-47.0) 20.7 % (37.0-47.0) Mean Corpuscular Volume 84 FL (80-99) 84 FL (80-99) Mean Corpuscular Hemoglobin 28.5 PG (27.0-31.0) 28.5 PG (27.0-31.0) Mean Corpuscular Hemoglobin Concent 33.7 G/DL (32.0-36.0) 33.8 G/DL (32.0-36.0) Red Cell Distribution Width 14.1 % (11.6-14.8) 14.1 % (11.6-14.8) Platelet Count 331 K/UL (150-450) 346 K/UL (150-450) Mean Platelet Volume 4.8 FL (6.5-10.1) 4.7 FL (6.5-10.1) Neutrophils (%) (Auto) % (45.0-75.0) % (45.0-75.0) Lymphocytes (%) (Auto) % (20.0-45.0) % (20.0-45.0) Monocytes (%) (Auto) % (1.0-10.0) % (1.0-10.0) Eosinophils (%) (Auto) % (0.0-3.0) % (0.0-3.0) Basophils (%) (Auto) % (0.0-2.0) % (0.0-2.0) Differential Total Cells Counted 100 100 Neutrophils % (Manual) 91 % (45-75) 87 % (45-75) Lymphocytes % (Manual) 8 % (20-45) 8 % (20-45) Monocytes % (Manual) 1 % (1-10) 4 % (1-10) Eosinophils % (Manual) 0 % (0-3) 1 % (0-3) Basophils % (Manual) 0 % (0-2) 0 % (0-2) Band Neutrophils 0 % (0-8) 0 % (0-8) Platelet Estimate Adequate Adequate Platelet Morphology Normal Normal Hypochromasia 2+ 1+ Anisocytosis 1+ 1+ Sodium Level 131 MMOL/L (136-145) Potassium Level 3.8 MMOL/L (3.5-5.1) Chloride Level 98 MMOL/L (98-107) Carbon Dioxide Level 16 MMOL/L (21-32) Anion Gap 17 mmol/L (5-15) Blood Urea Nitrogen 122 mg/dL (7-18) Creatinine 3.2 MG/DL (0.55-1.30) Estimat Glomerular Filtration Rate 15.5 mL/min (>60) Glucose Level 74 MG/DL (74-106) Hemoglobin A1c 4.1 % (4.3-6.0) Uric Acid 7.3 MG/DL (2.6-7.2) Calcium Level 8.5 MG/DL (8.5-10.1) Phosphorus Level 4.6 MG/DL (2.5-4.9) Magnesium Level 3.2 MG/DL (1.8-2.4) Iron Level 13 ug/dL (50-175) Total Iron Binding Capacity 188 ug/dL (250-450) Percent Iron Saturation 7 % (15-50) Unsaturated Iron Binding 175 ug/dL (112-346) Ferritin 923 NG/ML (8-388) Total Bilirubin 0.4 MG/DL (0.2-1.0) Gamma Glutamyl Transpeptidase 29 U/L (5-85) Aspartate Amino Transf (AST/SGOT) 21 U/L (15-37) Alanine Aminotransferase (ALT/SGPT) 13 U/L (12-78) Alkaline Phosphatase 135 U/L (46-116) Ammonia 52 umol/L (11-32) Lactate Dehydrogenase 150 U/L (81-234) Troponin I 0.346 ng/mL (0.000-0.056) C-Reactive Protein, Quantitative 7.5 mg/dL (0.00-0.90) Pro-B-Type Natriuretic Peptide > 80002 pg/mL (0-125) Total Protein 6.7 G/DL (6.4-8.2) Albumin 3.1 G/DL (3.4-5.0) Globulin 3.6 g/dL Albumin/Globulin Ratio 0.9 (1.0-2.7) Triglycerides Level 59 MG/DL (30-150) Cholesterol Level 61 MG/DL (< 200) LDL Cholesterol 37 mg/dL (<100) HDL Cholesterol 19 MG/DL (40-60) Cholesterol/HDL Ratio 3.2 (3.3-4.4) Lipase > 2000 U/L (73-393) Vitamin B12 Level 1744 PG/ML (193-986) Folate 65.9 NG/ML (8.6-58.9) Thyroid Stimulating Hormone (TSH) 0.995 uiU/mL (0.358-3.740) Random Vancomycin Level 11.3 ug/mL POC Whole Blood Glucose 84 MG/DL (74-106) Test 12/01/19 07:25 12/01/19 08:50 12/01/19 10:04 12/01/19 12:21 White Blood Count 16.5 K/UL (4.8-10.8) Red Blood Count 2.92 M/UL (4.20-5.40) Hemoglobin 8.4 G/DL (12.0-16.0) Hematocrit 24.6 % (37.0-47.0) Mean Corpuscular Volume 84 FL (80-99) Mean Corpuscular Hemoglobin 28.9 PG (27.0-31.0) Mean Corpuscular Hemoglobin Concent 34.4 G/DL (32.0-36.0) Red Cell Distribution Width 13.7 % (11.6-14.8) Platelet Count 328 K/UL (150-450) Mean Platelet Volume 4.4 FL (6.5-10.1) Neutrophils (%) (Auto) % (45.0-75.0) Lymphocytes (%) (Auto) % (20.0-45.0) Monocytes (%) (Auto) % (1.0-10.0) Eosinophils (%) (Auto) % (0.0-3.0) Basophils (%) (Auto) % (0.0-2.0) Differential Total Cells Counted 100 Neutrophils % (Manual) 88 % (45-75) Lymphocytes % (Manual) 10 % (20-45) Monocytes % (Manual) 2 % (1-10) Eosinophils % (Manual) 0 % (0-3) Basophils % (Manual) 0 % (0-2) Band Neutrophils 0 % (0-8) Platelet Estimate Adequate Platelet Morphology Normal Hypochromasia 1+ Erythrocyte Sedimentation Rate 28 MM/HR (0-20) Prothrombin Time 19.5 SEC (9.30-11.50) Prothromb Time International Ratio 1.9 (0.9-1.1) Activated Partial Thromboplast Time 33 SEC (23-33) Sodium Level 130 MMOL/L (136-145) Potassium Level 3.6 MMOL/L (3.5-5.1) Chloride Level 98 MMOL/L (98-107) Carbon Dioxide Level 15 MMOL/L (21-32) Anion Gap 17 mmol/L (5-15) Blood Urea Nitrogen 127 mg/dL (7-18) Creatinine 3.2 MG/DL (0.55-1.30) Estimat Glomerular Filtration Rate 15.5 mL/min (>60) Glucose Level 130 MG/DL (74-106) Uric Acid 7.7 MG/DL (2.6-7.2) Calcium Level 7.9 MG/DL (8.5-10.1) Phosphorus Level 5.2 MG/DL (2.5-4.9) Magnesium Level 3.2 MG/DL (1.8-2.4) Total Bilirubin 0.4 MG/DL (0.2-1.0) Aspartate Amino Transf (AST/SGOT) 20 U/L (15-37) Alanine Aminotransferase (ALT/SGPT) 10 U/L (12-78) Alkaline Phosphatase 120 U/L (46-116) Troponin I 0.121 ng/mL (0.000-0.056) C-Reactive Protein, Quantitative 5.8 mg/dL (0.00-0.90) Total Protein 6.7 G/DL (6.4-8.2) Albumin 3.3 G/DL (3.4-5.0) Globulin 3.4 g/dL Albumin/Globulin Ratio 1.0 (1.0-2.7) Triglycerides Level 23 MG/DL (30-150) Cholesterol Level 51 MG/DL (< 200) LDL Cholesterol 29 mg/dL (<100) HDL Cholesterol 21 MG/DL (40-60) Cholesterol/HDL Ratio 2.4 (3.3-4.4) Amylase Level 188 U/L (25-115) Lipase 1415 U/L (73-393) POC Whole Blood Glucose 114 MG/DL (74-106) Test 12/01/19 17:54 12/02/19 02:59 White Blood Count 15.7 K/UL (4.8-10.8) Red Blood Count 3.24 M/UL (4.20-5.40) Hemoglobin 9.2 G/DL (12.0-16.0) Hematocrit 27.3 % (37.0-47.0) Mean Corpuscular Volume 84 FL (80-99) Mean Corpuscular Hemoglobin 28.5 PG (27.0-31.0) Mean Corpuscular Hemoglobin Concent 33.9 G/DL (32.0-36.0) Red Cell Distribution Width 14.0 % (11.6-14.8) Platelet Count 358 K/UL (150-450) Mean Platelet Volume 4.7 FL (6.5-10.1) Neutrophils (%) (Auto) 84.4 % (45.0-75.0) Lymphocytes (%) (Auto) 8.9 % (20.0-45.0) Monocytes (%) (Auto) 4.2 % (1.0-10.0) Eosinophils (%) (Auto) 2.2 % (0.0-3.0) Basophils (%) (Auto) 0.3 % (0.0-2.0) Sodium Level 134 MMOL/L (136-145) Potassium Level 3.9 MMOL/L (3.5-5.1) Chloride Level 99 MMOL/L (98-107) Carbon Dioxide Level 15 MMOL/L (21-32) Blood Urea Nitrogen 134 mg/dL (7-18) Creatinine 3.4 MG/DL (0.55-1.30) Estimat Glomerular Filtration Rate 14.5 mL/min (>60) Glucose Level 86 MG/DL (74-106) Uric Acid 7.8 MG/DL (2.6-7.2) Calcium Level 8.0 MG/DL (8.5-10.1) Phosphorus Level 5.6 MG/DL (2.5-4.9) Magnesium Level 3.2 MG/DL (1.8-2.4) Total Bilirubin 0.4 MG/DL (0.2-1.0) Aspartate Amino Transf (AST/SGOT) 22 U/L (15-37) Alanine Aminotransferase (ALT/SGPT) < 6 U/L (12-78) Alkaline Phosphatase 131 U/L (46-116) Troponin I 0.077 ng/mL (0.000-0.056) C-Reactive Protein, Quantitative 7.6 mg/dL (0.00-0.90) Pro-B-Type Natriuretic Peptide > 86285 pg/mL (0-125) Total Protein 6.1 G/DL (6.4-8.2) Albumin 3.0 G/DL (3.4-5.0) Globulin 3.1 g/dL Albumin/Globulin Ratio 1.0 (1.0-2.7) Amylase Level 187 U/L (25-115) Lipase 1270 U/L (73-393) Random Vancomycin Level 19.1 ug/mL Height (Feet): 5 Height (Inches): 4.00 Weight (Pounds): 150 Objective Physical Exam: Vitals: reviewed General: NAD HEENT: nc, at Neck: supple ++tracn/vent Chest: clear breath sounds bilaterally Cardiovascular: RRR, no s3, s4 Abdomen: soft, nontender, nd +gtube Extremities: no cce, normal range of motion Neuro: alert ++Evan Molina MD Dec 02, 2019 06:49
--- NOTE | 2019-12-02 08:45 | Consultation ---
DATE OF CONSULTATION: 11/29/2019 PULMONARY CONSULTATION CONSULTING PHYSICIAN: Elijah Stephen MD. REQUESTING PHYSICIAN: Lucas Dong MD. REASON FOR CONSULTATION: Chronic respiratory failure. HISTORY OF PRESENT ILLNESS: This is a 49-year-old, chronic tracheostomy chronic respiratory failure patient, who was admitted to the hospital with hypoxia. The patient is currently 70% oxygen, previously she was 100% oxygen. She has history of COPD, chronic respiratory failure, chronic gastrostomy tube, decubitus, CAD, status post CABG, CKD. She is chronic [facility] resident. Her last COVID-19 testing was earlier in this month and was negative. PREVIOUS SURGERIES: Chronic tracheostomy, chronic gastrostomy, CABG. PAST HISTORY: COPD, chronic respiratory failure, CHF, depression, schizophrenia, decubitus, CAD and CKD. HOME MEDICATIONS: Include Lipitor, Cardizem, DuoNebs, Lopid, [place], Dilaudid, lisinopril, Reglan, Zaroxolyn, minoxidil, Nephro-Cyril, Risperdal. Currently, she is also on vancomycin and cefepime. REVIEW OF SYSTEMS: Not obtainable. PHYSICAL EXAMINATION: VITAL SIGNS: Blood pressure 150/70, heart rate 70, respirations 20, O2 saturation 100% on 80% FiO2. GENERAL: Reveals a 49-year-old female. HEENT: Unremarkable. Trach site is clean. CHEST: Shows clear breath sounds. ABDOMEN: Soft. Gastrostomy tube is noted. EXTREMITIES: There is no edema. LABORATORY AND DIAGNOSTIC DATA: Lab testing, white count 29,000, hemoglobin 8.3. ABG 7.35, pCO2 30, pO2 95. Chemistry notable for creatinine 3.4, sodium 131, anion gap of 19. Coags are negative. Urinalysis shows too numerous to count rbc and 30 to 40 wbc. X-ray chest not obtained recently. Previous x-ray has shown bilateral effusions. Upon further review, I was able to locate an x-ray chest done yesterday, which shows marked density overlying the right chest suspicious for layering pleural effusions and tracheostomy tube was in place. Sternotomy wires are noted. Left lung field shows left effusion. IMPRESSION: 1. left effusion. 2. Hypoxic respiratory failure. 3. Tracheostomy. 4. CKD. 5. CAD. DISCUSSION: We will request thoracentesis. Continue current medications include antibiotics. We will request thoracentesis given hypoxemia. We will follow carefully. Elijah Stephen M.D. DR: ERNIE JOB#: [id number] CC:
[2019-12-02] MEDS: Ascorbic Acid 500mg tab GT SCH (08:55)
[2019-12-02] MEDS: Nephrovite tab (Rena-Vite) GT SCH (08:55)
[2019-12-02] MEDS: Zinc Sulfate 220mg GT SCH (08:56)
[2019-12-02] MEDS: Heparin 5000 units/ml inj SUBQ SCH ×2 (08:57→20:25)
[2019-12-02] MEDS ORDERED: Vancomycin 1gm/D5W 275ml IVPB ONE ×2 (09:00)
--- NOTE | 2019-12-02 09:21 | General Progress Note ---
Subjective ROS Limited/Unobtainable: No Allergies: Coded Allergies: No Known Allergies (Unverified , 10/10/17) Objective Last 24 Hour Vital Signs Date Time Temp Pulse Resp B/P (MAP) Pulse Ox O2 Delivery O2 Flow Rate FiO2 12/02/19 08:57 55 137/59 12/02/19 08:00 40 12/02/19 08:00 58 12/02/19 08:00 98.4 61 22 137/58 (84) 99 12/02/19 05:29 143/63 12/02/19 04:38 99.5 12/02/19 04:00 40 12/02/19 04:00 100.6 67 18 143/62 (89) 100 12/02/19 04:00 67 12/02/19 04:00 Mechanical Ventilator 12/02/19 03:44 60 20 40 12/02/19 00:00 55 12/02/19 00:00 40 12/02/19 00:00 Mechanical Ventilator 12/02/19 00:00 100.0 55 18 136/64 (88) 100 12/01/19 23:44 136/64 12/01/19 23:21 56 20 40 12/01/19 20:56 64 135/63 12/01/19 20:00 98.2 67 20 149/71 (97) 100 12/01/19 20:00 Mechanical Ventilator 12/01/19 20:00 60 12/01/19 19:54 61 21 60 12/01/19 19:48 61 12/01/19 17:59 134/63 12/01/19 16:00 Mechanical Ventilator 12/01/19 16:00 66 12/01/19 16:00 60 12/01/19 16:00 97.0 60 20 130/58 (82) 100 12/01/19 15:00 62 22 70 12/01/19 12:59 99.3 12/01/19 12:28 154/72 12/01/19 12:00 65 12/01/19 12:00 60 12/01/19 12:00 100.8 65 20 147/69 (95) 100 12/01/19 12:00 99.0 65 20 147/69 (95) 100 12/01/19 12:00 60 12/01/19 12:00 Mechanical Ventilator 10/18/20 11:07 64 23 70 12/01/19 09:40 66 153/70 Intake and Output 12/01/19 12/02/19 19:00 07:00 Intake Total 142 ml 385 ml Output Total 600 ml 400 ml Balance -458 ml -15 ml IV Total 142 ml 385 ml Output Urine Total 600 ml 400 ml # Bowel Movements 1 Laboratory Tests 12/01/19 10:04: POC Whole Blood Glucose 114H 12/01/19 12:21: POC Whole Blood Glucose [Pending] 12/01/19 17:54: POC Whole Blood Glucose [Pending] 12/02/19 02:59: White Blood Count 15.7H, Red Blood Count 3.24L, Hemoglobin 9.2L, Hematocrit 27.3L, Mean Corpuscular Volume 84, Mean Corpuscular Hemoglobin 28.5, Mean Corpuscular Hemoglobin Concent 33.9, Red Cell Distribution Width 14.0, Platelet Count 358, Mean Platelet Volume 4.7L, Neutrophils (%) (Auto) 84.4H, Lymphocytes (%) (Auto) 8.9L, Monocytes (%) (Auto) 4.2, Eosinophils (%) (Auto) 2.2, Basophils (%) (Auto) 0.3, Sodium Level 134L, Potassium Level 3.9, Chloride Level 99, Carbon Dioxide Level 15L, Blood Urea Nitrogen 134H, Creatinine 3.4H, Estimat Glomerular Filtration Rate 14.5, Glucose Level 86, Uric Acid 7.8H, Calcium Level 8.0L, Phosphorus Level 5.6H, Magnesium Level 3.2H, Total Bilirubin 0.4, Aspartate Amino Transf (AST/SGOT) 22, Alanine Aminotransferase (ALT/SGPT) < 6L, Alkaline Phosphatase 131H, Troponin I 0.077H, C-Reactive Protein, Quantitative 7.6H, Pro-B-Type Natriuretic Peptide > 16693P, Total Protein 6.1L, Albumin 3.0L, Globulin 3.1, Albumin/Globulin Ratio 1.0, Amylase Level 187H, Lipase 1270H, Random Vancomycin Level 19.1 12/02/19 07:39: POC Whole Blood Glucose 80 Height (Feet): 5 Height (Inches): 4.00 Weight (Pounds): 150 General Appearance: lethargic EENT: normal ENT inspection Neck: supple Cardiovascular: normal rate Respiratory/Chest: decreased breath sounds Abdomen: normal bowel sounds, non tender, soft Extremities: non-tender Assessment/Plan Assessment/Plan: 1. Coronary artery disease with history of CABG. 2. Respiratory failure with history of tracheotomy. 3. Prior history of bacteremia. 4. History of prior pacemaker, status post explantation due to endovascular infection. 5. Chronic kidney disease. 6. Anemia of chronic kidney disease. 7. History of substance abuse. 8. Hyperlipidemia. 9. dysphagia with GT 10. Vitamin D deficiency. 11. History of aortic dissection and repair in 2018. 12. Paroxysmal atrial fibrillation. 13. Gastroesophageal reflux disease. 14. prei Gt cellulitis 15. pancreatitis keep NPO ivf repeat labs plan GTF tomorrow if amylase and lipase better will change the GT to 22 Fr at the bedside s/p blood transfusion fu stool ob ppi diogenes GT wound care fu CT Inder Mccauley MD Dec 02, 2019 09:21
--- NOTE | 2019-12-02 10:22 | Pulmonology Progress Note ---
Subjective ROS Limited/Unobtainable: No Interval Events: None new Constitutional: Reports: no symptoms HEENT: Repors: no symptoms Respiratory: Reports: no symptoms Cardiovascular: Reports: no symptoms Gastrointestinal/Abdominal: Reports: no symptoms Allergies: Coded Allergies: No Known Allergies (Unverified , 10/10/17) All Systems: reviewed and negative except above Objective Last 24 Hour Vital Signs Date Time Temp Pulse Resp B/P (MAP) Pulse Ox O2 Delivery O2 Flow Rate FiO2 12/02/19 08:57 55 137/59 12/02/19 08:00 40 12/02/19 08:00 58 12/02/19 08:00 98.4 61 22 137/58 (84) 99 12/02/19 05:29 143/63 12/02/19 04:38 99.5 12/02/19 04:00 40 12/02/19 04:00 100.6 67 18 143/62 (89) 100 12/02/19 04:00 67 12/02/19 04:00 Mechanical Ventilator 12/02/19 03:44 60 20 40 12/02/19 00:00 55 12/02/19 00:00 40 12/02/19 00:00 Mechanical Ventilator 12/02/19 00:00 100.0 55 18 136/64 (88) 100 12/01/19 23:44 136/64 12/01/19 23:21 56 20 40 12/01/19 20:56 64 135/63 12/01/19 20:00 98.2 67 20 149/71 (97) 100 12/01/19 20:00 Mechanical Ventilator 12/01/19 20:00 60 12/01/19 19:54 61 21 60 12/01/19 19:48 61 12/01/19 17:59 134/63 12/01/19 16:00 Mechanical Ventilator 12/01/19 16:00 66 12/01/19 16:00 60 12/01/19 16:00 97.0 60 20 130/58 (82) 100 12/01/19 15:00 62 22 70 12/01/19 12:59 99.3 12/01/19 12:28 154/72 12/01/19 12:00 65 12/01/19 12:00 60 12/01/19 12:00 100.8 65 20 147/69 (95) 100 12/01/19 12:00 99.0 65 20 147/69 (95) 100 12/01/19 12:00 60 12/01/19 12:00 Mechanical Ventilator 12/01/19 11:07 64 23 70 Intake and Output 12/01/19 12/02/19 19:00 07:00 Intake Total 142 ml 385 ml Output Total 600 ml 400 ml Balance -458 ml -15 ml IV Total 142 ml 385 ml Output Urine Total 600 ml 400 ml # Bowel Movements 1 General Appearance: no acute distress HEENT: normocephalic, status post trach Respiratory: chest wall non-tender, lungs clear Cardiovascular: normal peripheral pulses Abdomen: normal bowel sounds Microbiology Date/Time Source Procedure Growth Status 11/29/19 17:30 Sputum Gram Stain - Final Resulted 11/29/19 17:30 Sputum Culture - Preliminary Pseudomonas Aeruginosa Proteus Mirabilis Resulted 11/29/19 17:05 Nasopharynx - Final Complete 11/29/19 17:05 Nasopharynx - Final Complete 11/29/19 16:30 Nasopharynx SARS-CoV-2 RdRp Gene Assay - Final Complete 11/29/19 13:55 Pleural Fluid Gram Stain - Final Resulted 11/29/19 13:55 Pleural Fluid Body Fluid Culture - Preliminary NO GROWTH AFTER 24 HOURS Resulted Laboratory Tests 12/01/19 12:21: POC Whole Blood Glucose [Pending] 12/01/19 17:54: POC Whole Blood Glucose [Pending] 12/02/19 02:59: White Blood Count 15.7H, Red Blood Count 3.24L, Hemoglobin 9.2L, Hematocrit 27.3L, Mean Corpuscular Volume 84, Mean Corpuscular Hemoglobin 28.5, Mean Corpuscular Hemoglobin Concent 33.9, Red Cell Distribution Width 14.0, Platelet Count 358, Mean Platelet Volume 4.7L, Neutrophils (%) (Auto) 84.4H, Lymphocytes (%) (Auto) 8.9L, Monocytes (%) (Auto) 4.2, Eosinophils (%) (Auto) 2.2, Basophils (%) (Auto) 0.3, Sodium Level 134L, Potassium Level 3.9, Chloride Level 99, Carbon Dioxide Level 15L, Blood Urea Nitrogen 134H, Creatinine 3.4H, Estimat Glomerular Filtration Rate 14.5, Glucose Level 86, Uric Acid 7.8H, Calcium Level 8.0L, Phosphorus Level 5.6H, Magnesium Level 3.2H, Total Bilirubin 0.4, Aspartate Amino Transf (AST/SGOT) 22, Alanine Aminotransferase (ALT/SGPT) < 6L, Alkaline Phosphatase 131H, Troponin I 0.077H, C-Reactive Protein, Quantitative 7.6H, Pro-B-Type Natriuretic Peptide > 64236Q, Total Protein 6.1L, Albumin 3.0L, Globulin 3.1, Albumin/Globulin Ratio 1.0, Amylase Level 187H, Lipase 1270H, Random Vancomycin Level 19.1 12/02/19 07:39: POC Whole Blood Glucose 80 Current Medications Medications (Trade) Dose Ordered Sig/Penny Route PRN Reason Start Time Stop Time Status Last Admin Dose Admin Acetaminophen (Tylenol) 650 mg Q4H PRN GT Temp >100.5 11/29/19 04:30 12/29/19 04:29 12/02/19 04:08 Acetaminophen/ Hydrocodone Bitart ([place] 10) 1 tab Q4H PRN GT For moderate pain 11/29/19 15:30 12/06/19 15:29 Albuterol/ Ipratropium (Albuterol/ Ipratropium) 3 ml Q3H PRN HHN Shortness of Breath 11/29/19 01:30 12/04/19 01:29 Ascorbic Acid (Vitamin C) 500 mg DAILY GT 11/29/19 09:00 12/29/19 08:59 12/02/19 08:55 Barium Sulfate (Readi-Cat 2) 450 ml NOW PRN ORAL Radiology Procedure 12/01/19 21:15 12/03/19 21:14 Clonidine HCl (Catapres TTS-1) 1 patch ONCE A WEEK TDERMAL 12/03/19 09:00 03/02/20 08:59 Clotrimazole (Lotrimin) 1 applic THREE TIMES A DAY TOPIC 12/01/19 13:00 02/29/20 12:59 12/02/19 08:57 Epoetin Gelacio (Epoetin Gelacio-EPBX(NON ESRD)) 10,000 unit MON-WED-FRI SUBQ 11/29/19 21:00 02/27/20 20:59 11/29/19 20:49 Heparin Sodium (Porcine) (Heparin 5000 units/ml) 5,000 units EVERY 12 HOURS SUBQ 11/29/19 09:00 01/13/20 08:59 12/01/19 20:58 Hydralazine HCl (Apresoline) 25 mg Q6HR GT 11/29/19 18:00 02/27/20 17:59 12/02/19 05:29 Hydromorphone HCl (Dilaudid) 2 mg Q8H PRN ORAL Severe Pain (Pain Scale 7-10) 12/01/19 22:00 12/08/19 21:59 Lansoprazole (Prevacid) 30 mg DAILY GT 12/01/19 12:00 12/31/19 11:59 12/02/19 08:55 Meropenem 500 mg/ Sodium Chloride 55 ml @ 110 mls/hr Q12H IVPB 11/29/19 15:00 12/04/19 14:59 12/02/19 02:54 Metoclopramide HCl (Reglan) 5 mg Q6HR GT 11/29/19 06:00 12/29/19 05:59 12/02/19 05:29 Metolazone (Zaroxolyn) 2.5 mg QHS GT 11/29/19 21:00 12/29/19 20:59 12/01/19 20:56 Metolazone (Zaroxolyn) 5 mg DAILY GT 11/29/19 09:00 12/29/19 08:59 12/02/19 08:56 Metoprolol Tartrate (Lopressor) 25 mg Q12HR ORAL 12/01/19 09:00 02/29/20 08:59 12/01/19 20:56 Polyethylene Glycol (Miralax) 17 gm BEDTIME GT 11/29/19 21:00 12/29/19 20:59 12/01/19 20:56 Vancomycin HCl (Vanco pharmacy to dose) 1 ea DAILY PRN MISC Per rx protocol 11/29/19 01:15 12/29/19 01:14 Vancomycin HCl 1 gm/Dextrose 275 ml @ 183.708 mls/hr ONCE ONCE IVPB 12/02/19 09:00 12/02/19 10:29 12/02/19 08:56 Vitamin B Complex/ Vit C/Folic Acid (Nephrovite) 1 tab DAILY GT 11/29/19 09:00 12/29/19 08:59 12/02/19 08:55 Zinc Sulfate (Zinc Sulfate) 220 mg DAILY GT 11/29/19 09:00 02/27/20 08:59 12/02/19 08:56 Assessment/Plan Assessment/Plan Assessment: COVID19 neg x1 Sepsis Probable U TI Pl effusion - 11/28 Sp [place] (w: 169, PMN: 2%, L: 49% , LDH: P: ) PNA R/o probable bacteremia Low grade fever Leukocytosis, improving Acute on chronic hypoxic resp failure JAVIER on CKD- on previous admission Sep-Oct 2019 required HD for short period hx of Recent MDR PnA, sp rx H/o PPM site (pocket) infection and pocket abscess 2ry to S. epi-11/2018, sp >6weeks IV vancomycin CAD s/p CABG GERD/gastritis Afib HTN Dysphagia sp GT Aortic dissection s/p repair 2017, S/p PPM Parkinson's Disease Schizophrenia Anxiety COPD Chronic resp failure s/p trach Hx of tracheal bleeding [place] resident ([facility]) Plan: -Continue empiric abx -Monitor CBC/CMP, temperatures -PEG/trach care -aspiration precautions -COVID19 isolation and testing; -s/p thoracentesis- sent fluid analysis and culture - Will wean FIiO2 down; currently on 40% FiO2 Elijah Stephen MD Dec 02, 2019 10:22
--- NOTE | 2019-12-02 10:36 | Nephrology Progress Note ---
Assessment/Plan Problem List: (1) JAVIER (acute kidney injury) (2) Renal failure (ARF), acute on chronic (3) Feeding by G-tube (4) Tracheostomy in place (5) Electrolyte imbalance (6) Anemia (7) Respiratory failure, acute and chronic (8) Elevated lipase Assessment Patient is presented with sepsis and pneumonia and UTI, hypoxia Patient has acute renal failure, possible underlying chronic kidney failure Severe anemia Electrolyte imbalances: Hyponatremia, hypo-kalemia Chronic respiratory failure, COPD exacerbation Has sacral decubitus ulcer stage IV PEG Plan December 01: Lab reviewed. Hemoglobin higher. Serum creatinine 3.4. Creatinine clearance calculated . Serum lipase lowering. Continue per current management. November 30: Patient transfused. Hemoglobin higher. Serum sodium lower. Renal parameters unchanged. Trial of 3% saline. Continue monitor renal parameters. May require dialysis treatment depending on the how her condition evolves. Previously Consider transfusion Urine studies Adjust blood pressure medication Albumin bolus Norman catheter, intake and output Monitor renal parameters Avoid nephrotoxic's Antibiotics Per orders Subjective ROS Limited/Unobtainable: Yes Objective Objective Last 24 Hour Vital Signs Date Time Temp Pulse Resp B/P (MAP) Pulse Ox O2 Delivery O2 Flow Rate FiO2 12/02/19 08:57 55 137/59 12/02/19 08:00 40 12/02/19 08:00 58 12/02/19 08:00 98.4 61 22 137/58 (84) 99 12/02/19 05:29 143/63 12/02/19 04:38 99.5 12/02/19 04:00 40 12/02/19 04:00 100.6 67 18 143/62 (89) 100 12/02/19 04:00 67 12/02/19 04:00 Mechanical Ventilator 12/02/19 03:44 60 20 40 12/02/19 00:00 55 12/02/19 00:00 40 12/02/19 00:00 Mechanical Ventilator 12/02/19 00:00 100.0 55 18 136/64 (88) 100 12/01/19 23:44 136/64 12/01/19 23:21 56 20 40 12/01/19 20:56 64 135/63 12/01/19 20:00 98.2 67 20 149/71 (97) 100 12/01/19 20:00 Mechanical Ventilator 12/01/19 20:00 60 12/01/19 19:54 61 21 60 12/01/19 19:48 61 12/01/19 17:59 134/63 12/01/19 16:00 Mechanical Ventilator 12/01/19 16:00 66 12/01/19 16:00 60 12/01/19 16:00 97.0 60 20 130/58 (82) 100 12/01/19 15:00 62 22 70 12/01/19 12:59 99.3 12/01/19 12:28 154/72 12/01/19 12:00 65 12/01/19 12:00 60 12/01/19 12:00 100.8 65 20 147/69 (95) 100 12/01/19 12:00 99.0 65 20 147/69 (95) 100 12/01/19 12:00 60 12/01/19 12:00 Mechanical Ventilator 12/01/19 11:07 64 23 70 Intake and Output 12/01/19 12/02/19 19:00 07:00 Intake Total 142 ml 385 ml Output Total 600 ml 400 ml Balance -458 ml -15 ml IV Total 142 ml 385 ml Output Urine Total 600 ml 400 ml # Bowel Movements 1 Current Medications Medications (Trade) Dose Ordered Sig/Penny Route PRN Reason Start Time Stop Time Status Last Admin Dose Admin Acetaminophen (Tylenol) 650 mg Q4H PRN GT Temp >100.5 11/29/19 04:30 12/29/19 04:29 12/02/19 04:08 Acetaminophen/ Hydrocodone Bitart ([place] 10/325) 1 tab Q4H PRN GT For moderate pain 11/29/19 15:30 12/06/19 15:29 Albuterol/ Ipratropium (Albuterol/ Ipratropium) 3 ml Q3H PRN HHN Shortness of Breath 11/29/19 01:30 12/04/19 01:29 Ascorbic Acid (Vitamin C) 500 mg DAILY GT 11/29/19 09:00 12/29/19 08:59 12/02/19 08:55 Barium Sulfate (Readi-Cat 2) 450 ml NOW PRN ORAL Radiology Procedure 12/01/19 21:15 12/03/19 21:14 Clonidine HCl (Catapres TTS-1) 1 patch ONCE A WEEK TDERMAL 12/03/19 09:00 03/02/20 08:59 Clotrimazole (Lotrimin) 1 applic THREE TIMES A DAY TOPIC 12/01/19 13:00 02/29/20 12:59 12/02/19 08:57 Epoetin Gelacio (Epoetin Gelacio-EPBX(NON ESRD)) 10,000 unit MON-MON-MON SUBQ 11/29/19 21:00 02/27/20 20:59 11/29/19 20:49 Heparin Sodium (Porcine) (Heparin 5000 units/ml) 5,000 units EVERY 12 HOURS SUBQ 11/29/19 09:00 01/13/20 08:59 12/01/19 20:58 Hydralazine HCl (Apresoline) 25 mg Q6HR GT 11/29/19 18:00 02/27/20 17:59 12/02/19 05:29 Hydromorphone HCl (Dilaudid) 2 mg Q8H PRN ORAL Severe Pain (Pain Scale 7-10) 12/01/19 22:00 12/08/19 21:59 Lansoprazole (Prevacid) 30 mg DAILY GT 12/01/19 12:00 12/31/19 11:59 12/02/19 08:55 Meropenem 500 mg/ Sodium Chloride 55 ml @ 110 mls/hr Q12H IVPB 11/29/19 15:00 12/04/19 14:59 12/02/19 02:54 Metoclopramide HCl (Reglan) 5 mg Q6HR GT 11/29/19 06:00 12/29/19 05:59 12/02/19 05:29 Metolazone (Zaroxolyn) 2.5 mg QHS GT 11/29/19 21:00 12/29/19 20:59 12/01/19 20:56 Metolazone (Zaroxolyn) 5 mg DAILY GT 11/29/19 09:00 12/29/19 08:59 12/02/19 08:56 Metoprolol Tartrate (Lopressor) 25 mg Q12HR ORAL 12/01/19 09:00 02/29/20 08:59 12/01/19 20:56 Polyethylene Glycol (Miralax) 17 gm BEDTIME GT 11/29/19 21:00 12/29/19 20:59 12/01/19 20:56 Vancomycin HCl (Vanco pharmacy to dose) 1 ea DAILY PRN MISC Per rx protocol 11/29/19 01:15 12/29/19 01:14 Vitamin B Complex/ Vit C/Folic Acid (Nephrovite) 1 tab DAILY GT 11/29/19 09:00 12/29/19 08:59 12/02/19 08:55 Zinc Sulfate (Zinc Sulfate) 220 mg DAILY GT 11/29/19 09:00 02/27/20 08:59 12/02/19 08:56 Laboratory Tests 12/01/19 12:21: POC Whole Blood Glucose [Pending] 12/01/19 17:54: POC Whole Blood Glucose [Pending] 12/02/19 02:59: White Blood Count 15.7H, Red Blood Count 3.24L, Hemoglobin 9.2L, Hematocrit 27.3L, Mean Corpuscular Volume 84, Mean Corpuscular Hemoglobin 28.5, Mean Corpuscular Hemoglobin Concent 33.9, Red Cell Distribution Width 14.0, Platelet Count 358, Mean Platelet Volume 4.7L, Neutrophils (%) (Auto) 84.4H, Lymphocytes (%) (Auto) 8.9L, Monocytes (%) (Auto) 4.2, Eosinophils (%) (Auto) 2.2, Basophils (%) (Auto) 0.3, Sodium Level 134L, Potassium Level 3.9, Chloride Level 99, Carbon Dioxide Level 15L, Blood Urea Nitrogen 134H, Creatinine 3.4H, Estimat Glomerular Filtration Rate 14.5, Glucose Level 86, Uric Acid 7.8H, Calcium Level 8.0L, Phosphorus Level 5.6H, Magnesium Level 3.2H, Total Bilirubin 0.4, Aspartate Amino Transf (AST/SGOT) 22, Alanine Aminotransferase (ALT/SGPT) < 6L, Alkaline Phosphatase 131H, Troponin I 0.077H, C-Reactive Protein, Quantitative 7.6H, Pro-B-Type Natriuretic Peptide > 54451K, Total Protein 6.1L, Albumin 3.0L, Globulin 3.1, Albumin/Globulin Ratio 1.0, Amylase Level 187H, Lipase 1270H, Random Vancomycin Level 19.1 12/02/19 07:39: POC Whole Blood Glucose 80 Height (Feet): 5 Height (Inches): 4.00 Weight (Pounds): 150 General Appearance: no apparent distress Cardiovascular: normal rate Respiratory/Chest: decreased breath sounds Abdomen: distended Johnny Houston MD Dec 02, 2019 10:36
--- NOTE | 2019-12-02 13:01 | Surgery Progress Note ---
Surgery Progress Note Subjective Additional Comments afebrile wbc improving h/h stable no n/v Objective Last 24 Hour Vital Signs Date Time Temp Pulse Resp B/P (MAP) Pulse Ox O2 Delivery O2 Flow Rate FiO2 12/02/19 12:26 131/59 12/02/19 08:57 55 137/59 12/02/19 08:00 40 12/02/19 08:00 Mechanical Ventilator 12/02/19 08:00 40 12/02/19 08:00 58 12/02/19 08:00 58 12/02/19 08:00 98.4 58 20 137/59 (85) 100 12/02/19 08:00 98.4 61 22 137/58 (84) 99 12/02/19 05:29 143/63 12/02/19 04:38 99.5 12/02/19 04:00 40 12/02/19 04:00 100.6 67 18 143/62 (89) 100 12/02/19 04:00 67 12/02/19 04:00 Mechanical Ventilator 12/02/19 03:44 60 20 40 12/02/19 00:00 55 12/02/19 00:00 40 12/02/19 00:00 Mechanical Ventilator 12/02/19 00:00 100.0 55 18 136/64 (88) 100 12/01/19 23:44 136/64 12/01/19 23:21 56 20 40 12/01/19 20:56 64 135/63 12/01/19 20:00 98.2 67 20 149/71 (97) 100 12/01/19 20:00 Mechanical Ventilator 12/01/19 20:00 60 12/01/19 19:54 61 21 60 12/01/19 19:48 61 12/01/19 17:59 134/63 12/01/19 16:00 Mechanical Ventilator 12/01/19 16:00 66 12/01/19 16:00 60 12/01/19 16:00 97.0 60 20 130/58 (82) 100 12/01/19 15:00 62 22 70 I&O Intake and Output 12/01/19 12/02/19 19:00 07:00 Intake Total 142 ml 385 ml Output Total 600 ml 400 ml Balance -458 ml -15 ml IV Total 142 ml 385 ml Output Urine Total 600 ml 400 ml # Bowel Movements 1 Dressing: saturated Cardiovascular: RSR Respiratory: decreased breath sounds Abdomen: soft, non-tender, present bowel sounds Extremities: no tenderness, no cyanosis Laboratory Tests Test 12/01/19 17:54 12/02/19 02:59 12/02/19 07:39 12/02/19 12:25 POC Whole Blood Glucose Pending 80 MG/DL (74-106) Pending White Blood Count 15.7 K/UL (4.8-10.8) H Red Blood Count 3.24 M/UL (4.20-5.40) L Hemoglobin 9.2 G/DL (12.0-16.0) L Hematocrit 27.3 % (37.0-47.0) L Mean Corpuscular Volume 84 FL (80-99) Mean Corpuscular Hemoglobin 28.5 PG (27.0-31.0) Mean Corpuscular Hemoglobin Concent 33.9 G/DL (32.0-36.0) Red Cell Distribution Width 14.0 % (11.6-14.8) Platelet Count 358 K/UL (150-450) Mean Platelet Volume 4.7 FL (6.5-10.1) L Neutrophils (%) (Auto) 84.4 % (45.0-75.0) H Lymphocytes (%) (Auto) 8.9 % (20.0-45.0) L Monocytes (%) (Auto) 4.2 % (1.0-10.0) Eosinophils (%) (Auto) 2.2 % (0.0-3.0) Basophils (%) (Auto) 0.3 % (0.0-2.0) Sodium Level 134 MMOL/L (136-145) L Potassium Level 3.9 MMOL/L (3.5-5.1) Chloride Level 99 MMOL/L (98-107) Carbon Dioxide Level 15 MMOL/L (21-32) L Blood Urea Nitrogen 134 mg/dL (7-18) H Creatinine 3.4 MG/DL (0.55-1.30) H Estimat Glomerular Filtration Rate 14.5 mL/min (>60) Glucose Level 86 MG/DL (74-106) Uric Acid 7.8 MG/DL (2.6-7.2) H Calcium Level 8.0 MG/DL (8.5-10.1) L Phosphorus Level 5.6 MG/DL (2.5-4.9) H Magnesium Level 3.2 MG/DL (1.8-2.4) H Total Bilirubin 0.4 MG/DL (0.2-1.0) Aspartate Amino Transf (AST/SGOT) 22 U/L (15-37) Alanine Aminotransferase (ALT/SGPT) < 6 U/L (12-78) L Alkaline Phosphatase 131 U/L (46-116) H Troponin I 0.077 ng/mL (0.000-0.056) C-Reactive Protein, Quantitative 7.6 mg/dL (0.00-0.90) H Pro-B-Type Natriuretic Peptide > 83445 pg/mL (0-125) H Total Protein 6.1 G/DL (6.4-8.2) L Albumin 3.0 G/DL (3.4-5.0) L Globulin 3.1 g/dL Albumin/Globulin Ratio 1.0 (1.0-2.7) Amylase Level 187 U/L (25-115) H Lipase 1270 U/L (73-393) H Random Vancomycin Level 19.1 ug/mL Plan Problems: (1) Dehydration (2) Acidosis (3) Anemia (4) Depression (5) Pancreatitis Assessment & Plan: 49F leukocytosis, elevated lip, lft's noted septic. work up ongoing npo iv fluids iv abx imaging ordered lipase worsening npo pending CT DAILY ESTIMATED NEEDS: Needs based on Critical care, wound, 56.8kg 28-33 kcals/kg [id number] total kcals 1.25-2 g protein/kg 71-114 g total protein Fluid per MD NUTRITION DIAGNOSIS: * Swallowing difficulty R/T dysphagia, respiratory status as evidenced by vent dep via trach, GT Dep. * Increase kcal and pro needs r/t wound healing and wasting as evidenced by stage 4 sacral wound. CURRENT TF:Nepro @ 40ml/hr x 20 hrs ENTERAL NUTRITION RECOMMENDATIONS: Nepro @ 45ml/hr x 20 hrs to provide 900ml, 1620kcal, 73g prot, 654ml free water * Increase TF to goal of 45ml/hr x20 hrs to better meet est needs * Water flush per MD * HOB over 30 degrees ADDITIONAL RECOMMENDATIONS: * Per SNF: HT=63", TI=137hau -> rec calibrated bedscale wt (Bed reads 79.4kg) * Rec TF increase as above to better meet est needs * F/up w/ H&P * WC-> continue Vit C, ZnSO4, Nephrovite Add FR[place]LIN in 4oz BID for wound care (6) Pleural effusion (7) Renal failure (8) Respiratory failure (9) Schizophrenia (10) Hypoxia (11) Sepsis (12) UTI (urinary tract infection) (13) Pneumonia (14) ARF (acute renal failure) (15) NSTEMI (non-ST elevated myocardial infarction) (16) Tracheostomy in place (17) Feeding by G-tube (18) JAVIER (acute kidney injury) (19) Acute encephalopathy (20) Sacral decubitus ulcer, stage IV Assessment & Plan: Pt presented on admission with Full thickness stage 4 Sacral Pressure injury which extends into R gluteal cheek. Base of wound is granular with bone exposure at base of sacrococcygeal. Pt presented on admission with tracheostomy, GT, Full Thickness Pressure Injury Sacrococcygeal.Base of wound is 40% soft necrosis, 60% noni with undermined borders(L)5.8cm x (W)5.5cm x (D)1.5cm, undermining clockwise 10-1 by 2.7cm @12o'clock.(+) Epibole along edges with scattered slough. Small area that is purple and indurated noted clockwise @7-8o'clock along borders.Small amt serous exudate noted.Mild odor noted. hyperpigmentation periwound. At L ischium are two areas of dry pink epithelial with surrounding hyperpigmentation. Both heels are boggy with [id number] erythema. Tx.Plan: Cleanse sacral wound with Saline. Loosely pack with Hydrogel impregnated kerlix. Apply Moisture Barrier Paste periwound. Cover with Optifoam drsg Daily and prn. Apply Cavilon Skin Barrier to both heels and malleoli. Cover eachsite with Optifoam drsgs. Change every 7 days and prn. Reposition at least every 2hours or as tolerated. Off-load heels with pillow. APM/Maxwell Mattress overlay. (21) Chronic respiratory failure (22) Hypokalemia (23) Ascites (24) Bacteremia (25) Hypernatremia (26) Proteinuria (27) Electrolyte imbalance (28) Pacemaker (29) ACS (acute coronary syndrome) (30) Aortic dissection, thoracic (31) Respiratory failure, acute and chronic (32) JAVIER (acute kidney injury) (33) Abrasion of lip, initial encounter (34) COPD with exacerbation (35) Elevated alkaline phosphatase level (36) Renal failure (ARF), acute on chronic (37) HCAP (healthcare-associated pneumonia) (38) Lane Alexis Dec 02, 2019 13:01
--- NOTE | 2019-12-02 17:52 | Infectious Diseases Prog Note ---
Assessment/Plan Assessment: COVID19 neg x2 (11/27 & rapid COVID PCR neg) Sepsis U TI -11/27 u/a wbc 30-40, nit neg, leuk +3; ucx ESBL P. mirablis, ESBL M. morganii Pl effusion - 11/28 Sp [place] (w: 169, PMN: 2%, L: 49% , LDH: P: ); cx NTD PNA -11/28 CXR: Resolved right pleural effusion, status post thoracentesis. No radiographically evident complication Sp cx MDR P. mirablis (S Meropenem, Zosyn), MDR PsA (S Gentamycin) Influenza ag neg -11/27 CXR: Increasing hazy right lung diffuse opacity. Suspect at least in part due to overlying soft tissue, but developing infiltrate also possible. Persistent and slightly increased left retrocardiac consolidation and slightly increased left pleural effusion -11/27 Bcx NTD Fever , ongoing Leukocytosis, improving Acute on chronic hypoxic resp failure JAVIER on CKD; improving- on previous admission Sep-Oct 2019 required HD for short period hx of Recent MDR PnA, sp rx 10/15/19 sp cx ESBL P. mirabilis, MDR P.a. ( S only to Gent) 09/22 Resp cx + MDR PsA (S-gent; I-colistin; R-levofloxacin, Zosyn, angelo) 09/16/19 Sp cx ESBL P. mirablis hx of recent UTI 09/15/19 u/a wbc tnct, nit neg, leuk +3; ucx >100k MDR P. stuarti (S C eftriaxone, Meropenem) 10/07 u/a wbc tnct, nit neg, leuk ; ucx >100k VRE 10/15/19 u/a wbc tnct; ucx >100k ESBL P. stuarti (S ertapenem, aztreonam) H/o PPM site (pocket) infection and pocket abscess 2ry to S. epi-11/2018, sp >6weeks IV vancomycin 11/27 SP ABBIE: no evidence for vegetation on any of the valves 11/26/18 SP PPM removal: OR findings:The fibrous capsule enclosing the generator was then opened and there was a [id number] amount of yellowish fluid drainage. The generator was then removed.Atrial and ventricular leads were detached. The necrotic tissue of the pocket was then removed and the pocket was flushed with an antibiotic solution. Capsule, wound tissue and lead tip cx: Neg 2d echo: no vegetation seen US chest: 4.6 x 3.4 x 0.9 cm hypoechoic/anechoic area overlying left chest pacemaker power pack. This could represent either a discrete fluid collection or a focal area of very edematous tissue. Infected fluid pocket also possible. 11/18 Bcx 3/4 S. epi; 11/20 Bcx neg; 11/24 Bcx Neg; 11/27 Bcx Neg CAD s/p CABG GERD/gastritis Afib HTN Dysphagia sp GT Aortic dissection s/p repair 2018, S/p PPM Parkinson's Disease Schizophrenia Anxiety COPD Chronic resp failure s/p trach Hx of tracheal bleeding NH resident ([facility]) VRE and MRSA colonized Plan: -Dc empiric IV Vancomycin #5 -Meropenem # 4 and add IV Gentamycin for MDR PsA - 11/28 Sp Cefepime #2 and IV Gentamycin x1 -f/u cx -Monitor CBC/CMP, temperatures -f/u legionella ag urine -PEG/trach care -aspiration precautions -COVID19 neg x2 -for thoracentesis- send fluid analysis and culture -f/u CT A/P eval of leukocytosis and fever Subjective Allergies: Coded Allergies: No Known Allergies (Unverified , 10/10/17) Objective Last 24 Hour Vital Signs Date Time Temp Pulse Resp B/P (MAP) Pulse Ox O2 Delivery O2 Flow Rate FiO2 12/02/19 16:00 40 12/02/19 16:00 Mechanical Ventilator 12/02/19 16:00 48 12/02/19 16:00 40 12/02/19 15:08 55 20 40 12/02/19 13:23 59 20 40 12/02/19 12:26 131/59 12/02/19 12:00 Mechanical Ventilator 12/02/19 12:00 97.3 61 20 131/59 (83) 100 12/02/19 12:00 50 12/02/19 12:00 40 12/02/19 11:02 61 20 40 12/02/19 09:11 59 20 40 12/02/19 08:57 55 137/59 12/02/19 08:00 40 12/02/19 08:00 Mechanical Ventilator 12/02/19 08:00 40 12/02/19 08:00 58 12/02/19 08:00 58 12/02/19 08:00 98.4 58 20 137/59 (85) 100 12/02/19 08:00 98.4 61 22 137/58 (84) 99 12/02/19 07:06 56 20 40 12/02/19 05:29 143/63 12/02/19 04:38 99.5 12/02/19 04:00 40 12/02/19 04:00 100.6 67 18 143/62 (89) 100 12/02/19 04:00 67 12/02/19 04:00 Mechanical Ventilator 12/02/19 03:44 60 20 40 12/02/19 00:00 55 12/02/19 00:00 40 12/02/19 00:00 Mechanical Ventilator 12/02/19 00:00 100.0 55 18 136/64 (88) 100 12/01/19 23:44 136/64 12/01/19 23:21 56 20 40 12/01/19 20:56 64 135/63 12/01/19 20:00 98.2 67 20 149/71 (97) 100 12/01/19 20:00 Mechanical Ventilator 12/01/19 20:00 60 12/01/19 19:54 61 21 60 12/01/19 19:48 61 12/01/19 17:59 134/63 Height (Feet): 5 Height (Inches): 4.00 Weight (Pounds): 150 General Appearance: no acute distress HEENT: atraumatic Respiratory/Chest: no respiratory distress Cardiovascular: regular rhythm Laboratory Tests Test 12/01/19 17:54 12/02/19 02:59 12/02/19 07:39 12/02/19 12:25 POC Whole Blood Glucose Pending 80 MG/DL (74-106) Pending White Blood Count 15.7 K/UL (4.8-10.8) H Red Blood Count 3.24 M/UL (4.20-5.40) L Hemoglobin 9.2 G/DL (12.0-16.0) L Hematocrit 27.3 % (37.0-47.0) L Mean Corpuscular Volume 84 FL (80-99) Mean Corpuscular Hemoglobin 28.5 PG (27.0-31.0) Mean Corpuscular Hemoglobin Concent 33.9 G/DL (32.0-36.0) Red Cell Distribution Width 14.0 % (11.6-14.8) Platelet Count 358 K/UL (150-450) Mean Platelet Volume 4.7 FL (6.5-10.1) L Neutrophils (%) (Auto) 84.4 % (45.0-75.0) H Lymphocytes (%) (Auto) 8.9 % (20.0-45.0) L Monocytes (%) (Auto) 4.2 % (1.0-10.0) Eosinophils (%) (Auto) 2.2 % (0.0-3.0) Basophils (%) (Auto) 0.3 % (0.0-2.0) Sodium Level 134 MMOL/L (136-145) L Potassium Level 3.9 MMOL/L (3.5-5.1) Chloride Level 99 MMOL/L (98-107) Carbon Dioxide Level 15 MMOL/L (21-32) L Blood Urea Nitrogen 134 mg/dL (7-18) H Creatinine 3.4 MG/DL (0.55-1.30) H Estimat Glomerular Filtration Rate 14.5 mL/min (>60) Glucose Level 86 MG/DL (74-106) Uric Acid 7.8 MG/DL (2.6-7.2) H Calcium Level 8.0 MG/DL (8.5-10.1) L Phosphorus Level 5.6 MG/DL (2.5-4.9) H Magnesium Level 3.2 MG/DL (1.8-2.4) H Total Bilirubin 0.4 MG/DL (0.2-1.0) Aspartate Amino Transf (AST/SGOT) 22 U/L (15-37) Alanine Aminotransferase (ALT/SGPT) < 6 U/L (12-78) L Alkaline Phosphatase 131 U/L (46-116) H Troponin I 0.077 ng/mL (0.000-0.056) C-Reactive Protein, Quantitative 7.6 mg/dL (0.00-0.90) H Pro-B-Type Natriuretic Peptide > 58912 pg/mL (0-125) H Total Protein 6.1 G/DL (6.4-8.2) L Albumin 3.0 G/DL (3.4-5.0) L Globulin 3.1 g/dL Albumin/Globulin Ratio 1.0 (1.0-2.7) Amylase Level 187 U/L (25-115) H Lipase 1270 U/L (73-393) H Random Vancomycin Level 19.1 ug/mL Current Medications Medications (Trade) Dose Ordered Sig/Penny Route PRN Reason Start Time Stop Time Status Last Admin Dose Admin Acetaminophen (Tylenol) 650 mg Q4H PRN GT Temp >100.5 11/29/19 04:30 12/29/19 04:29 12/02/19 04:08 Acetaminophen/ Hydrocodone Bitart (Mohall ) 1 tab Q4H PRN GT For moderate pain 11/29/19 15:30 12/06/19 15:29 Albuterol/ Ipratropium (Albuterol/ Ipratropium) 3 ml Q3H PRN HHN Shortness of Breath 11/29/19 01:30 12/04/19 01:29 Ascorbic Acid (Vitamin C) 500 mg DAILY GT 11/29/19 09:00 12/29/19 08:59 12/02/19 08:55 Barium Sulfate (Readi-Cat 2) 450 ml NOW PRN ORAL Radiology Procedure 12/01/19 21:15 12/03/19 21:14 Clonidine HCl (Catapres TTS-1) 1 patch ONCE A WEEK TDERMAL 12/03/19 09:00 03/02/20 08:59 Clotrimazole (Lotrimin) 1 applic THREE TIMES A DAY TOPIC 12/01/19 13:00 02/29/20 12:59 12/02/19 12:26 Epoetin Gelacio (Epoetin Gelacio-EPBX(NON ESRD)) 10,000 unit MON-WED-FRI SUBQ 11/29/19 21:00 02/27/20 20:59 11/29/19 20:49 Heparin Sodium (Porcine) (Heparin 5000 units/ml) 5,000 units EVERY 12 HOURS SUBQ 11/29/19 09:00 01/13/20 08:59 12/01/19 20:58 Hydralazine HCl (Apresoline) 25 mg Q6HR GT 11/29/19 18:00 02/27/20 17:59 12/02/19 12:26 Hydromorphone HCl (Dilaudid) 2 mg Q8H PRN ORAL Severe Pain (Pain Scale 7-10) 12/01/19 22:00 12/08/19 21:59 Lansoprazole (Prevacid) 30 mg DAILY GT 12/01/19 12:00 12/31/19 11:59 12/02/19 08:55 Meropenem 500 mg/ Sodium Chloride 55 ml @ 110 mls/hr Q12H IVPB 11/29/19 15:00 12/04/19 14:59 12/02/19 14:07 Metoclopramide HCl (Reglan) 5 mg Q6HR GT 11/29/19 06:00 12/29/19 05:59 12/02/19 12:26 Metolazone (Zaroxolyn) 2.5 mg QHS GT 11/29/19 21:00 12/29/19 20:59 12/01/19 20:56 Metolazone (Zaroxolyn) 5 mg DAILY GT 11/29/19 09:00 12/29/19 08:59 12/02/19 08:56 Metoprolol Tartrate (Lopressor) 25 mg Q12HR ORAL 12/01/19 09:00 02/29/20 08:59 12/01/19 20:56 Polyethylene Glycol (Miralax) 17 gm BEDTIME GT 11/29/19 21:00 12/29/19 20:59 12/01/19 20:56 Vancomycin HCl (Vanco pharmacy to dose) 1 ea DAILY PRN MISC Per rx protocol 11/29/19 01:15 12/29/19 01:14 Vitamin B Complex/ Vit C/Folic Acid (Nephrovite) 1 tab DAILY GT 11/29/19 09:00 12/29/19 08:59 12/02/19 08:55 Zinc Sulfate (Zinc Sulfate) 220 mg DAILY GT 11/29/19 09:00 02/27/20 08:59 12/02/19 08:56 Doreen Nino M.D. Dec 02, 2019 17:52
[2019-12-02] MEDS ORDERED: Gentamicin Rx monitoring MISC PRN (18:00)
[2019-12-02] MEDS ORDERED: Gentamicin inj 120 MG in NS 110 ML IVPB ONE (20:00)
[2019-12-02] MEDS: metOLazone 2.5 MG TAB GT SCH (20:23)
[2019-12-02] MEDS: Miralax 17gm pkt GT SCH (20:23)
[2019-12-02] MEDS: Epoetin Alfa-EPBX (NON ESRD)10,000 unit/ml vial SUBQ SCH (20:30)
--- NOTE | 2019-12-02 23:46 | General Progress Note ---
Subjective Constitutional: Reports: no symptoms, other - Somnolent Respiratory: Reports: no symptoms Gastrointestinal/Abdominal: Reports: no symptoms Genitourinary: Reports: no symptoms Neurologic/Psychiatric: Reports: no symptoms, other - Quite different from her previous admission during which she woke up every 4-6 hours and asked for pain medication she did not ask for pain medication now for the last 48 hours Hematologic/Lymphatic: Reports: no symptoms Allergies: Coded Allergies: No Known Allergies (Unverified , 10/10/17) Objective Last 24 Hour Vital Signs Date Time Temp Pulse Resp B/P (MAP) Pulse Ox O2 Delivery O2 Flow Rate FiO2 12/02/19 23:11 165/72 12/02/19 22:51 55 20 40 12/02/19 21:02 54 20 40 12/02/19 20:24 62 151/63 12/02/19 20:00 Mechanical Ventilator 12/02/19 20:00 40 12/02/19 20:00 98.1 62 22 151/63 (92) 100 12/02/19 19:30 59 20 40 12/02/19 19:03 63 12/02/19 17:47 151/61 12/02/19 17:30 57 20 40 12/02/19 16:00 40 12/02/19 16:00 Mechanical Ventilator 12/02/19 16:00 97.0 55 20 151/61 (91) 100 12/02/19 16:00 48 12/02/19 16:00 40 12/02/19 15:08 55 20 40 12/02/19 13:23 59 20 40 12/02/19 12:26 131/59 12/02/19 12:00 Mechanical Ventilator 12/02/19 12:00 97.3 61 20 131/59 (83) 100 12/02/19 12:00 50 12/02/19 12:00 40 12/02/19 11:02 61 20 40 12/02/19 09:11 59 20 40 12/02/19 08:57 55 137/59 12/02/19 08:00 40 12/02/19 08:00 Mechanical Ventilator 12/02/19 08:00 40 12/02/19 08:00 58 12/02/19 08:00 58 12/02/19 08:00 98.4 58 20 137/59 (85) 100 12/02/19 08:00 98.4 61 22 137/58 (84) 99 12/02/19 07:06 56 20 40 12/02/19 05:29 143/63 12/02/19 04:38 99.5 12/02/19 04:00 40 12/02/19 04:00 100.6 67 18 143/62 (89) 100 12/02/19 04:00 67 12/02/19 04:00 Mechanical Ventilator 12/02/19 03:44 60 20 40 12/02/19 00:00 55 12/02/19 00:00 40 12/02/19 00:00 Mechanical Ventilator 12/02/19 00:00 100.0 55 18 136/64 (88) 100 12/01/19 23:44 136/64 Intake and Output 12/01/19 12/02/19 19:00 07:00 Intake Total 142 ml 385 ml Output Total 600 ml 400 ml Balance -458 ml -15 ml IV Total 142 ml 385 ml Output Urine Total 600 ml 400 ml # Bowel Movements 1 Laboratory Tests 12/02/19 02:59: White Blood Count 15.7H, Red Blood Count 3.24L, Hemoglobin 9.2L, Hematocrit 27.3L, Mean Corpuscular Volume 84, Mean Corpuscular Hemoglobin 28.5, Mean Corpuscular Hemoglobin Concent 33.9, Red Cell Distribution Width 14.0, Platelet Count 358, Mean Platelet Volume 4.7L, Neutrophils (%) (Auto) 84.4H, Lymphocytes (%) (Auto) 8.9L, Monocytes (%) (Auto) 4.2, Eosinophils (%) (Auto) 2.2, Basophils (%) (Auto) 0.3, Sodium Level 134L, Potassium Level 3.9, Chloride Level 99, Carbon Dioxide Level 15L, Blood Urea Nitrogen 134H, Creatinine 3.4H, Estimat Glomerular Filtration Rate 14.5, Glucose Level 86, Uric Acid 7.8H, Calcium Level 8.0L, Phosphorus Level 5.6H, Magnesium Level 3.2H, Total Bilirubin 0.4, Aspartate Amino Transf (AST/SGOT) 22, Alanine Aminotransferase (ALT/SGPT) < 6L, Alkaline Phosphatase 131H, Troponin I 0.077H, C-Reactive Protein, Quantitative 7.6H, Pro-B-Type Natriuretic Peptide > 16996T, Total Protein 6.1L, Albumin 3.0L, Globulin 3.1, Albumin/Globulin Ratio 1.0, Amylase Level 187H, Lipase 1270H, Random Vancomycin Level 19.1 12/02/19 07:39: POC Whole Blood Glucose 80 12/02/19 12:25: POC Whole Blood Glucose [Pending] 12/02/19 17:56: POC Whole Blood Glucose [Pending] Height (Feet): 5 Height (Inches): 4.00 Weight (Pounds): 150 General Appearance: WD/WN, no apparent distress, other - Appear to be in deep sleep EENT: normal ENT inspection Neck: non-tender, supple Cardiovascular: normal rate, regular rhythm, no gallop/murmur, no JVD, davis cardia, other - Patient bradycardia between 55-60 she is on alpha flori and beta-flori on a regular basis Respiratory/Chest: lungs clear, normal breath sounds, no respiratory distress, no accessory muscle use Abdomen: normal bowel sounds, non tender, soft, no organomegaly, no mass, other - This is in spite of the fact the patient have acute pancreatitis Genitourinary/Rectal: other - Resolution of her labial swelling Extremities: non-tender Neurologic: unresponsive Assessment/Plan Status Narrative Patient is afebrile hemodynamically stable obese bradycardia 52 55-60 WBC progressively declining she was found to have Proteus mirabilis which was MDR as well as Pseudomonas organism both of them sensitive to gentamicin she is currently on gentamicin and meropenem in the previous admission she required the use of Dilaudid every 6 hours which were given routinely over the last 48 hours patient did not require any pain medication and her Dilaudid was reduced from every 6 hours to every 8000 today to every 12 hours yesterday and Risperdal was DC'd as well CT scans it was ordered yesterday for acute pancreatitis was not done as yet and had a gastrostomy tube is about to be replaced by the dialysis equipment technician tomorrow We will continue with the current antibiotic regimen we will continue with the same diuresis that in spite of her elevated BUN/creatinine patient 64 resolved condition near anasarca with periorbital edema with genital swelling which will all resolve under the current management Repeat laboratory tests will be done in a.Lucas Nathan MD, MD Dec 02, 2019 23:46
--- NOTE | 2019-12-03 00:13 | Cardiology Progress Note ---
Subjective DATE OF SERVICE: Dec 02, 2019 On vent support Beta flori added yesterday Troponin trending down Multiple electrolyte abnormalities Monitor: sinus bradycardic episodes Objective Last 24 Hour Vital Signs Date Time Temp Pulse Resp B/P (MAP) Pulse Ox O2 Delivery O2 Flow Rate FiO2 12/02/19 23:56 98.5 61 20 164/83 (110) 100 12/02/19 23:52 40 12/02/19 23:51 Mechanical Ventilator 12/02/19 23:30 57 12/02/19 23:11 165/72 12/02/19 22:51 55 20 40 12/02/19 21:02 54 20 40 12/02/19 20:24 62 151/63 12/02/19 20:00 Mechanical Ventilator 12/02/19 20:00 40 12/02/19 20:00 98.1 62 22 151/63 (92) 100 12/02/19 19:30 59 20 40 12/02/19 19:03 63 12/02/19 17:47 151/61 12/02/19 17:30 57 20 40 12/02/19 16:00 40 12/02/19 16:00 Mechanical Ventilator 12/02/19 16:00 97.0 55 20 151/61 (91) 100 12/02/19 16:00 48 12/02/19 16:00 40 12/02/19 15:08 55 20 40 12/02/19 13:23 59 20 40 12/02/19 12:26 131/59 12/02/19 12:00 Mechanical Ventilator 12/02/19 12:00 97.3 61 20 131/59 (83) 100 12/02/19 12:00 50 12/02/19 12:00 40 12/02/19 11:02 61 20 40 12/02/19 09:11 59 20 40 12/02/19 08:57 55 137/59 12/02/19 08:00 40 12/02/19 08:00 Mechanical Ventilator 12/02/19 08:00 40 12/02/19 08:00 58 12/02/19 08:00 58 12/02/19 08:00 98.4 58 20 137/59 (85) 100 12/02/19 08:00 98.4 61 22 137/58 (84) 99 12/02/19 07:06 56 20 40 12/02/19 05:29 143/63 12/02/19 04:38 99.5 12/02/19 04:00 40 12/02/19 04:00 100.6 67 18 143/62 (89) 100 12/02/19 04:00 67 12/02/19 04:00 Mechanical Ventilator 12/02/19 03:44 60 20 40 ROS: no changes from my prior evaluation 11/30/19 HEENT: Thin secretions ET Tube RHYTHM: ST LUNGS: bilateral rhonchi CARDIAC: normal rate, regular rhythm, normal S1 and S2 ABDOMEN: normal bowel sounds, G-Tube intact EXTREMITIES: +2 edema Laboratory Tests Test 12/02/19 02:59 12/02/19 07:39 12/02/19 12:25 12/02/19 17:56 White Blood Count 15.7 K/UL (4.8-10.8) H Red Blood Count 3.24 M/UL (4.20-5.40) L Hemoglobin 9.2 G/DL (12.0-16.0) L Hematocrit 27.3 % (37.0-47.0) L Mean Corpuscular Volume 84 FL (80-99) Mean Corpuscular Hemoglobin 28.5 PG (27.0-31.0) Mean Corpuscular Hemoglobin Concent 33.9 G/DL (32.0-36.0) Red Cell Distribution Width 14.0 % (11.6-14.8) Platelet Count 358 K/UL (150-450) Mean Platelet Volume 4.7 FL (6.5-10.1) L Neutrophils (%) (Auto) 84.4 % (45.0-75.0) H Lymphocytes (%) (Auto) 8.9 % (20.0-45.0) L Monocytes (%) (Auto) 4.2 % (1.0-10.0) Eosinophils (%) (Auto) 2.2 % (0.0-3.0) Basophils (%) (Auto) 0.3 % (0.0-2.0) Sodium Level 134 MMOL/L (136-145) L Potassium Level 3.9 MMOL/L (3.5-5.1) Chloride Level 99 MMOL/L (98-107) Carbon Dioxide Level 15 MMOL/L (21-32) L Blood Urea Nitrogen 134 mg/dL (7-18) H Creatinine 3.4 MG/DL (0.55-1.30) H Estimat Glomerular Filtration Rate 14.5 mL/min (>60) Glucose Level 86 MG/DL (74-106) Uric Acid 7.8 MG/DL (2.6-7.2) H Calcium Level 8.0 MG/DL (8.5-10.1) L Phosphorus Level 5.6 MG/DL (2.5-4.9) H Magnesium Level 3.2 MG/DL (1.8-2.4) H Total Bilirubin 0.4 MG/DL (0.2-1.0) Aspartate Amino Transf (AST/SGOT) 22 U/L (15-37) Alanine Aminotransferase (ALT/SGPT) < 6 U/L (12-78) L Alkaline Phosphatase 131 U/L (46-116) H Troponin I 0.077 ng/mL (0.000-0.056) C-Reactive Protein, Quantitative 7.6 mg/dL (0.00-0.90) H Pro-B-Type Natriuretic Peptide > 12767 pg/mL (0-125) H Total Protein 6.1 G/DL (6.4-8.2) L Albumin 3.0 G/DL (3.4-5.0) L Globulin 3.1 g/dL Albumin/Globulin Ratio 1.0 (1.0-2.7) Amylase Level 187 U/L (25-115) H Lipase 1270 U/L (73-393) H Random Vancomycin Level 19.1 ug/mL POC Whole Blood Glucose 80 MG/DL (74-106) Pending Pending Assessment/Plan Assessment/Plan Respiratory failure Acute myocardial ischemia and possible NSTE myocardial infarction Ischemic cardiomyopathy - s/p CABG Hx AAA repair Paroxysmal AFib Pacemaker explant due to infection Decubitus sepsis Low lipid parameters Beta flori associated bradycardia Acute on chronic renal failure Antimicrobials Anti-plt therapy Decrease beta flori dosing Vent support Diuresis efforts; may need dialysis Deni Willams MD Dec 03, 2019 00:13
[2019-12-03] MEDS: Meropenem 500 MG in NS 55 ML IVPB SCH ×2 (02:58→15:07)
--- NOTE | 2019-12-03 03:06 | Diagnostic Imaging Report ---
EXAM: CT Abdomen Without Intravenous Contrast CLINICAL HISTORY: STONES TECHNIQUE: Axial computed tomography images of the abdomen without intravenous contrast. CTDI is 10.80 mGy and DLP is 626.70 mGy-cm. One or more of the following dose reduction techniques were used: automated exposure control, adjustment of the mA and/or kV according to patient size, use of iterative reconstruction technique. COMPARISON: No relevant prior studies available. FINDINGS: Limitations: Study substantially limited due to lack of IV contrast. Lung bases: See below. Pleural space: Bilateral moderate low-attenuation, partially loculated pleural effusions with extensive passive atelectasis; correlate to exclude superimposed aspiration or pneumonia. Liver: Ill-defined right hepatic lobe. 2.9 cm hypodensity not well evaluated on this study. Gallbladder and bile ducts: Unremarkable. No calcified stones. No ductal dilation. Pancreas: Unremarkable. No ductal dilation. Spleen: Unremarkable. No splenomegaly. Adrenals: Unremarkable. No mass. Kidneys and ureters: Left nephroureteral stent in the decompressed left, atrophic renal collecting system. No evident urolithiasis. No hydronephrosis. Stomach and bowel: Unremarkable. No obstruction. No mucosal thickening. Intraperitoneal space: Moderate nonloculated ascites. No free air. Bones/joints: Potentially chronic appearing right intertrochanteric hip fracture. Possible sacral decubitus ulcer, recommend direct visualization. No dislocation. Soft tissues: Severe anasarca. Incompletely evaluated chronic aortic dissection not well seen on this study due to lack of IV contrast and severe anasarca. Vasculature: Descending thoracic aortic ectasia 4 cm diameter above the hiatus. No abdominal aortic aneurysm. Lymph nodes: Unremarkable. No enlarged lymph nodes. Tubes, lines and devices: Percutaneous gastrostomy tube. Norman catheter in decompressed urinary bladder. IMPRESSION: 1. Study substantially limited due to lack of IV contrast and severe anasarca and moderate nonloculated ascites. 2. Left nephroureteral stent in the decompressed left, atrophic renal collecting system. 3. No evident urolithiasis. 4. Incompletely evaluated chronic aortic dissection not well seen on this study due to lack of IV contrast and severe anasarca. 5. Bilateral moderate low-attenuation, partially loculated pleural effusions with extensive passive atelectasis; correlate to exclude superimposed aspiration or pneumonia. 6. Percutaneous gastrostomy tube. 7. Norman catheter in decompressed urinary bladder. 8. Likely chronic appearing right intertrochanteric hip fracture. 9. Possible sacral decubitus ulcer, recommend direct visualization.
[2019-12-03 04:00] VITALS: BP 167/77
[2019-12-03] MEDS: HydrALAZINE 25mg tab GT SCH ×3 (05:10→17:10)
[2019-12-03 05:18] LABS: HEMATOCRIT 25.8 % (37.0-47.0); HEMOGLOBIN 8.9 G/DL (12.0-16.0); MEAN CORPUSCULAR VOLUME 84 FL (80-99); PLATELET COUNT 369 K/UL (150-450); RED BLOOD COUNT 3.08 M/UL (4.20-5.40); RED CELL DISTRIBUTION WIDTH 13.5 % (11.6-14.8)
[2019-12-03 05:51] LABS: ALANINE AMINOTRANSFERASE 8 U/L (12-78); ALBUMIN 2.8 G/DL (3.4-5.0); ALBUMIN/GLOBULIN RATIO 0.8 (1.0-2.7); ALKALINE PHOSPHATASE 139 U/L (46-116); AMYLASE 168 U/L (25-115); ASPARTATE AMINO TRANSFERASE 21 U/L (15-37); BILIRUBIN,TOTAL 0.3 MG/DL (0.2-1.0); BLOOD UREA NITROGEN 132 mg/dL (7-18); CALCIUM 7.7 MG/DL (8.5-10.1); CARBON DIOXIDE 15 MMOL/L (21-32); CHLORIDE 98 MMOL/L (98-107); CREATININE 3.4 MG/DL (0.55-1.30); POTASSIUM 3.9 MMOL/L (3.5-5.1); SODIUM 132 MMOL/L (136-145)
[2019-12-03 05:59] LABS: PHOSPHORUS 5.9 MG/DL (2.5-4.9)
--- NOTE | 2019-12-03 06:38 | Hematology/Onc Progress Note ---
Assessment/Plan Assessment/Plan Assessment and Recs # Leukocytosis, now with uti, though in past has had pna, pacemaker site infection and bacteremia --> is s/p pm removal and also pocket infection is better --> per cards recs in re to tach/davis --> wbc 29-->16-->17 --> ABX vanc/angelo-->gent/angelo --> ID recs are noted # Anemia of chronic disease due to underlying chronic medical issues, multifactorial --> Anemia workup has been reviewed, cw acd --> No evidence of hemolysis is noted, peripheral smear has been reviewed. --> Hgb goal >7. Transfuse prn. --> Epogen started sq --> Medications have been reviewed --> low threshold for gi evaluation in case has occult + --> hgb 7.1-->7.8-->>>6.7->9.2-->8.9 --> 1 unit prbc1 # Thrombocytois is likely reactive process, is s/p infection --> plt trend 358 --> p smear reviewed # Acute hypoxic respiratory failure s/p intubation 11/23- ?ARDS --> on vent/trach # JAVIER initially >2 --> on ivfs -> may need hd per Dr. [place] # Elevated d-dimer --> venous duplex and v/q scan neg --> negative results # Dysphagia s/p peg # Thoracic aortic dissection s/p repair early 2017 # Psychiatric history on ativan/haldol # [place] resident # Dvt ppx --> heparin sq The timing of this note does not necessarily reflect the time of the patient was seen. Greatly appreciate consultation. Subjective Constitutional: Denies: no symptoms, chills, fever, malaise, weakness, other HEENT: Denies: no symptoms, eye pain, blurred vision, tearing, double vision, ear pain, ear discharge, nose pain, nose congestion, throat pain, throat swelling, mouth pain, mouth swelling, other Cardiovascular: Denies: no symptoms, chest pain, edema, irregular heart rate, lightheadedness, palpitations, syncope, other Respiratory: Denies: no symptoms, cough, shortness of breath, SOB with excertion, SOB at rest, sputum, wheezing, other Gastrointestinal/Abdominal: Denies: no symptoms, abdomen distended, abdominal pain, black stools, tarry stools, blood in stool, constipated, diarrhea, difficulty swallowing, nausea, poor appetite, poor fluid intake, rectal bleeding, vomiting, other Genitourinary: Denies: no symptoms, burning, discharge, frequency, flank pain, hematuria, incontinence, pain, urgency, other Neurologic/Psychiatric: Denies: no symptoms, anxiety, depressed, emotional problems, headache, numbness, paresthesia, pre-existing deficit, seizure, tingling, tremors, weakness, other Endocrine: Denies: no symptoms, excessive sweating, flushing, intolerance to cold, intolerance to heat, increased hunger, increased thirst, increased urine, unexplained weight gain, unexplained weight loss, other Allergies: Coded Allergies: No Known Allergies (Unverified , 10/10/17) Subjective 12/01 on vent, with gtube and raymond, no bleeding, labs are noted 12/02 labs noted, remains on abx, dw Rn at bedside is on abx, hgb 8.9 Objective Objective Current Medications Medications (Trade) Dose Ordered Sig/Penny Route PRN Reason Start Time Stop Time Status Last Admin Dose Admin Acetaminophen (Tylenol) 650 mg Q4H PRN GT Temp >100.5 11/29/19 04:30 12/29/19 04:29 12/02/19 04:08 Acetaminophen/ Hydrocodone Bitart ([place] 10) 1 tab Q4H PRN GT For moderate pain 11/29/19 15:30 12/06/19 15:29 Albuterol/ Ipratropium (Albuterol/ Ipratropium) 3 ml Q3H PRN HHN Shortness of Breath 11/29/19 01:30 12/04/19 01:29 Ascorbic Acid (Vitamin C) 500 mg DAILY GT 11/29/19 09:00 12/29/19 08:59 12/02/19 08:55 Barium Sulfate (Readi-Cat 2) 450 ml NOW PRN ORAL Radiology Procedure 12/01/19 21:15 12/03/19 21:14 12/02/19 23:33 Clonidine HCl (Catapres TTS-1) 1 patch ONCE A WEEK TDERMAL 12/03/19 09:00 03/02/20 08:59 Clotrimazole (Lotrimin) 1 applic THREE TIMES A DAY TOPIC 12/01/19 13:00 02/29/20 12:59 12/02/19 17:47 Epoetin Gelacio (Epoetin Gelacio-EPBX(NON ESRD)) 10,000 unit MON-MON-MON SUBQ 11/29/19 21:00 02/27/20 20:59 12/02/19 20:30 Gentamicin Protocol (Gentamicin pharmacy to dose) 1 ea DAILY PRN MISC Per rx protocol 12/02/19 18:00 01/01/20 17:59 Heparin Sodium (Porcine) (Heparin 5000 units/ml) 5,000 units EVERY 12 HOURS SUBQ 11/29/19 09:00 01/13/20 08:59 12/01/19 20:58 Hydralazine HCl (Apresoline) 25 mg Q6HR GT 11/29/19 18:00 02/27/20 17:59 12/03/19 05:10 Hydromorphone HCl (Dilaudid) 2 mg Q12HR ORAL 12/03/19 09:00 12/10/19 21:59 Lansoprazole (Prevacid) 30 mg DAILY GT 12/01/19 12:00 12/31/19 11:59 12/02/19 08:55 Meropenem 500 mg/ Sodium Chloride 55 ml @ 110 mls/hr Q12H IVPB 11/29/19 15:00 12/04/19 14:59 12/03/19 02:58 Metoclopramide HCl (Reglan) 5 mg Q6HR GT 11/29/19 06:00 12/29/19 05:59 12/03/19 05:09 Metolazone (Zaroxolyn) 2.5 mg QHS GT 11/29/19 21:00 12/29/19 20:59 12/02/19 20:23 Metolazone (Zaroxolyn) 5 mg DAILY GT 11/29/19 09:00 12/29/19 08:59 12/02/19 08:56 Metoprolol Tartrate (Lopressor) 12.5 mg Q12HR ORAL 12/03/19 09:00 03/02/20 08:59 Polyethylene Glycol (Miralax) 17 gm BEDTIME GT 11/29/19 21:00 12/29/19 20:59 10/19/20 20:23 Vitamin B Complex/ Vit C/Folic Acid (Nephrovite) 1 tab DAILY GT 11/29/19 09:00 12/29/19 08:59 12/02/19 08:55 Zinc Sulfate (Zinc Sulfate) 220 mg DAILY GT 11/29/19 09:00 02/27/20 08:59 12/02/19 08:56 Last 24 Hour Vital Signs Date Time Temp Pulse Resp B/P (MAP) Pulse Ox O2 Delivery O2 Flow Rate FiO2 12/03/19 05:10 158/75 12/03/19 05:02 79 20 40 12/03/19 04:00 Mechanical Ventilator 12/03/19 04:00 40 12/03/19 04:00 98.2 78 18 167/77 (107) 100 12/03/19 03:30 72 12/03/19 03:13 71 20 40 12/03/19 01:08 68 20 40 12/02/19 23:56 98.5 61 20 164/83 (110) 100 12/02/19 23:52 40 12/02/19 23:51 Mechanical Ventilator 12/02/19 23:30 57 12/02/19 23:11 165/72 12/02/19 22:51 55 20 40 12/02/19 21:02 54 20 40 12/02/19 20:24 62 151/63 12/02/19 20:00 Mechanical Ventilator 12/02/19 20:00 40 12/02/19 20:00 98.1 62 22 151/63 (92) 100 12/02/19 19:30 59 20 40 12/02/19 19:03 63 12/02/19 17:47 151/61 12/02/19 17:30 57 20 40 12/02/19 16:00 40 12/02/19 16:00 Mechanical Ventilator 12/02/19 16:00 97.0 55 20 151/61 (91) 100 12/02/19 16:00 48 12/02/19 16:00 40 12/02/19 15:08 55 20 40 12/02/19 13:23 59 20 40 12/02/19 12:26 131/59 12/02/19 12:00 Mechanical Ventilator 12/02/19 12:00 97.3 61 20 131/59 (83) 100 12/02/19 12:00 50 12/02/19 12:00 40 12/02/19 11:02 61 20 40 12/02/19 09:11 59 20 40 12/02/19 08:57 55 137/59 12/02/19 08:00 40 12/02/19 08:00 Mechanical Ventilator 12/02/19 08:00 40 12/02/19 08:00 58 12/02/19 08:00 58 12/02/19 08:00 98.4 58 20 137/59 (85) 100 12/02/19 08:00 98.4 61 22 137/58 (84) 99 12/02/19 07:06 56 20 40 12/02/19 05:29 143/63 12/02/19 04:38 99.5 12/02/19 04:00 40 12/02/19 04:00 100.6 67 18 143/62 (89) 100 12/02/19 04:00 67 12/02/19 04:00 Mechanical Ventilator 12/02/19 03:44 60 20 40 12/02/19 00:00 55 12/02/19 00:00 40 12/02/19 00:00 Mechanical Ventilator 12/02/19 00:00 100.0 55 18 136/64 (88) 100 12/01/19 23:44 136/64 12/01/19 23:21 56 20 40 12/01/19 20:56 64 135/63 12/01/19 20:00 98.2 67 20 149/71 (97) 100 12/01/19 20:00 Mechanical Ventilator 12/01/19 20:00 60 12/01/19 19:54 61 21 60 12/01/19 19:48 61 12/01/19 17:59 134/63 12/01/19 16:00 Mechanical Ventilator 12/01/19 16:00 66 12/01/19 16:00 60 12/01/19 16:00 97.0 60 20 130/58 (82) 100 12/01/19 15:00 62 22 70 12/01/19 12:59 99.3 12/01/19 12:28 154/72 12/01/19 12:00 65 12/01/19 12:00 60 12/01/19 12:00 100.8 65 20 147/69 (95) 100 12/01/19 12:00 99.0 65 20 147/69 (95) 100 12/01/19 12:00 60 12/01/19 12:00 Mechanical Ventilator 12/01/19 11:07 64 23 70 12/01/19 09:40 66 153/70 12/01/19 08:00 96.8 63 18 150/72 (98) 100 12/01/19 08:00 96.8 63 18 150/72 (98) 100 12/01/19 08:00 63 12/01/19 08:00 70 12/01/19 08:00 70 12/01/19 08:00 Mechanical Ventilator 12/01/19 08:00 63 12/01/19 07:50 68 25 70 Intake and Output 12/02/19 12/03/19 19:00 07:00 Intake Total 796 ml Output Total 400 ml 400 ml Balance -400 ml 396 ml Intake Free Water 10 ml IV Total 336 ml Other 450 ml Output Urine Total 400 ml 400 ml Labs Test 11/30/19 07:30 11/30/19 12:00 11/30/19 20:33 12/01/19 07:25 White Blood Count 16.3 K/UL (4.8-10.8) 17.5 K/UL (4.8-10.8) Red Blood Count 2.37 M/UL (4.20-5.40) 2.45 M/UL (4.20-5.40) Hemoglobin 6.7 G/DL (12.0-16.0) 7.0 G/DL (12.0-16.0) Hematocrit 20.0 % (37.0-47.0) 20.7 % (37.0-47.0) Mean Corpuscular Volume 84 FL (80-99) 84 FL (80-99) Mean Corpuscular Hemoglobin 28.5 PG (27.0-31.0) 28.5 PG (27.0-31.0) Mean Corpuscular Hemoglobin Concent 33.7 G/DL (32.0-36.0) 33.8 G/DL (32.0-36.0) Red Cell Distribution Width 14.1 % (11.6-14.8) 14.1 % (11.6-14.8) Platelet Count 331 K/UL (150-450) 346 K/UL (150-450) Mean Platelet Volume 4.8 FL (6.5-10.1) 4.7 FL (6.5-10.1) Neutrophils (%) (Auto) % (45.0-75.0) % (45.0-75.0) Lymphocytes (%) (Auto) % (20.0-45.0) % (20.0-45.0) Monocytes (%) (Auto) % (1.0-10.0) % (1.0-10.0) Eosinophils (%) (Auto) % (0.0-3.0) % (0.0-3.0) Basophils (%) (Auto) % (0.0-2.0) % (0.0-2.0) Differential Total Cells Counted 100 100 Neutrophils % (Manual) 91 % (45-75) 87 % (45-75) Lymphocytes % (Manual) 8 % (20-45) 8 % (20-45) Monocytes % (Manual) 1 % (1-10) 4 % (1-10) Eosinophils % (Manual) 0 % (0-3) 1 % (0-3) Basophils % (Manual) 0 % (0-2) 0 % (0-2) Band Neutrophils 0 % (0-8) 0 % (0-8) Platelet Estimate Adequate Adequate Platelet Morphology Normal Normal Hypochromasia 2+ 1+ Anisocytosis 1+ 1+ Sodium Level 131 MMOL/L (136-145) Potassium Level 3.8 MMOL/L (3.5-5.1) Chloride Level 98 MMOL/L (98-107) Carbon Dioxide Level 16 MMOL/L (21-32) Anion Gap 17 mmol/L (5-15) Blood Urea Nitrogen 122 mg/dL (7-18) Creatinine 3.2 MG/DL (0.55-1.30) Estimat Glomerular Filtration Rate 15.5 mL/min (>60) Glucose Level 74 MG/DL (74-106) Hemoglobin A1c 4.1 % (4.3-6.0) Uric Acid 7.3 MG/DL (2.6-7.2) Calcium Level 8.5 MG/DL (8.5-10.1) Phosphorus Level 4.6 MG/DL (2.5-4.9) Magnesium Level 3.2 MG/DL (1.8-2.4) Iron Level 13 ug/dL (50-175) Total Iron Binding Capacity 188 ug/dL (250-450) Percent Iron Saturation 7 % (15-50) Unsaturated Iron Binding 175 ug/dL (112-346) Ferritin 923 NG/ML (8-388) Total Bilirubin 0.4 MG/DL (0.2-1.0) Gamma Glutamyl Transpeptidase 29 U/L (5-85) Aspartate Amino Transf (AST/SGOT) 21 U/L (15-37) Alanine Aminotransferase (ALT/SGPT) 13 U/L (12-78) Alkaline Phosphatase 135 U/L (46-116) Ammonia 52 umol/L (11-32) Lactate Dehydrogenase 150 U/L (81-234) Troponin I 0.346 ng/mL (0.000-0.056) C-Reactive Protein, Quantitative 7.5 mg/dL (0.00-0.90) Pro-B-Type Natriuretic Peptide > 24744 pg/mL (0-125) Total Protein 6.7 G/DL (6.4-8.2) Albumin 3.1 G/DL (3.4-5.0) Globulin 3.6 g/dL Albumin/Globulin Ratio 0.9 (1.0-2.7) Triglycerides Level 59 MG/DL (30-150) Cholesterol Level 61 MG/DL (< 200) LDL Cholesterol 37 mg/dL (<100) HDL Cholesterol 19 MG/DL (40-60) Cholesterol/HDL Ratio 3.2 (3.3-4.4) Lipase > 2000 U/L (73-393) Vitamin B12 Level 1744 PG/ML (193-986) Folate 65.9 NG/ML (8.6-58.9) Thyroid Stimulating Hormone (TSH) 0.995 uiU/mL (0.358-3.740) Random Vancomycin Level 11.3 ug/mL Mycoplasma pneumoniae IgM Ab Titer <770 U/mL (0-769) POC Whole Blood Glucose 84 MG/DL (74-106) Test 12/01/19 08:50 12/01/19 10:04 12/01/19 12:21 12/01/19 17:54 White Blood Count 16.5 K/UL (4.8-10.8) Red Blood Count 2.92 M/UL (4.20-5.40) Hemoglobin 8.4 G/DL (12.0-16.0) Hematocrit 24.6 % (37.0-47.0) Mean Corpuscular Volume 84 FL (80-99) Mean Corpuscular Hemoglobin 28.9 PG (27.0-31.0) Mean Corpuscular Hemoglobin Concent 34.4 G/DL (32.0-36.0) Red Cell Distribution Width 13.7 % (11.6-14.8) Platelet Count 328 K/UL (150-450) Mean Platelet Volume 4.4 FL (6.5-10.1) Neutrophils (%) (Auto) % (45.0-75.0) Lymphocytes (%) (Auto) % (20.0-45.0) Monocytes (%) (Auto) % (1.0-10.0) Eosinophils (%) (Auto) % (0.0-3.0) Basophils (%) (Auto) % (0.0-2.0) Differential Total Cells Counted 100 Neutrophils % (Manual) 88 % (45-75) Lymphocytes % (Manual) 10 % (20-45) Monocytes % (Manual) 2 % (1-10) Eosinophils % (Manual) 0 % (0-3) Basophils % (Manual) 0 % (0-2) Band Neutrophils 0 % (0-8) Platelet Estimate Adequate Platelet Morphology Normal Hypochromasia 1+ Erythrocyte Sedimentation Rate 28 MM/HR (0-20) Prothrombin Time 19.5 SEC (9.30-11.50) Prothromb Time International Ratio 1.9 (0.9-1.1) Activated Partial Thromboplast Time 33 SEC (23-33) Sodium Level 130 MMOL/L (136-145) Potassium Level 3.6 MMOL/L (3.5-5.1) Chloride Level 98 MMOL/L (98-107) Carbon Dioxide Level 15 MMOL/L (21-32) Anion Gap 17 mmol/L (5-15) Blood Urea Nitrogen 127 mg/dL (7-18) Creatinine 3.2 MG/DL (0.55-1.30) Estimat Glomerular Filtration Rate 15.5 mL/min (>60) Glucose Level 130 MG/DL (74-106) Uric Acid 7.7 MG/DL (2.6-7.2) Calcium Level 7.9 MG/DL (8.5-10.1) Phosphorus Level 5.2 MG/DL (2.5-4.9) Magnesium Level 3.2 MG/DL (1.8-2.4) Total Bilirubin 0.4 MG/DL (0.2-1.0) Aspartate Amino Transf (AST/SGOT) 20 U/L (15-37) Alanine Aminotransferase (ALT/SGPT) 10 U/L (12-78) Alkaline Phosphatase 120 U/L (46-116) Troponin I 0.121 ng/mL (0.000-0.056) C-Reactive Protein, Quantitative 5.8 mg/dL (0.00-0.90) Total Protein 6.7 G/DL (6.4-8.2) Albumin 3.3 G/DL (3.4-5.0) Globulin 3.4 g/dL Albumin/Globulin Ratio 1.0 (1.0-2.7) Triglycerides Level 23 MG/DL (30-150) Cholesterol Level 51 MG/DL (< 200) LDL Cholesterol 29 mg/dL (<100) HDL Cholesterol 21 MG/DL (40-60) Cholesterol/HDL Ratio 2.4 (3.3-4.4) Amylase Level 188 U/L (25-115) Lipase 1415 U/L (73-393) POC Whole Blood Glucose 114 MG/DL (74-106) Test 12/02/19 02:59 12/02/19 07:39 12/02/19 12:25 12/02/19 17:56 White Blood Count 15.7 K/UL (4.8-10.8) Red Blood Count 3.24 M/UL (4.20-5.40) Hemoglobin 9.2 G/DL (12.0-16.0) Hematocrit 27.3 % (37.0-47.0) Mean Corpuscular Volume 84 FL (80-99) Mean Corpuscular Hemoglobin 28.5 PG (27.0-31.0) Mean Corpuscular Hemoglobin Concent 33.9 G/DL (32.0-36.0) Red Cell Distribution Width 14.0 % (11.6-14.8) Platelet Count 358 K/UL (150-450) Mean Platelet Volume 4.7 FL (6.5-10.1) Neutrophils (%) (Auto) 84.4 % (45.0-75.0) Lymphocytes (%) (Auto) 8.9 % (20.0-45.0) Monocytes (%) (Auto) 4.2 % (1.0-10.0) Eosinophils (%) (Auto) 2.2 % (0.0-3.0) Basophils (%) (Auto) 0.3 % (0.0-2.0) Sodium Level 134 MMOL/L (136-145) Potassium Level 3.9 MMOL/L (3.5-5.1) Chloride Level 99 MMOL/L (98-107) Carbon Dioxide Level 15 MMOL/L (21-32) Blood Urea Nitrogen 134 mg/dL (7-18) Creatinine 3.4 MG/DL (0.55-1.30) Estimat Glomerular Filtration Rate 14.5 mL/min (>60) Glucose Level 86 MG/DL (74-106) Uric Acid 7.8 MG/DL (2.6-7.2) Calcium Level 8.0 MG/DL (8.5-10.1) Phosphorus Level 5.6 MG/DL (2.5-4.9) Magnesium Level 3.2 MG/DL (1.8-2.4) Total Bilirubin 0.4 MG/DL (0.2-1.0) Aspartate Amino Transf (AST/SGOT) 22 U/L (15-37) Alanine Aminotransferase (ALT/SGPT) < 6 U/L (12-78) Alkaline Phosphatase 131 U/L (46-116) Troponin I 0.077 ng/mL (0.000-0.056) C-Reactive Protein, Quantitative 7.6 mg/dL (0.00-0.90) Pro-B-Type Natriuretic Peptide > 51644 pg/mL (0-125) Total Protein 6.1 G/DL (6.4-8.2) Albumin 3.0 G/DL (3.4-5.0) Globulin 3.1 g/dL Albumin/Globulin Ratio 1.0 (1.0-2.7) Amylase Level 187 U/L (25-115) Lipase 1270 U/L (73-393) Random Vancomycin Level 19.1 ug/mL POC Whole Blood Glucose 80 MG/DL (74-106) Test 12/03/19 04:30 White Blood Count 17.0 K/UL (4.8-10.8) Red Blood Count 3.08 M/UL (4.20-5.40) Hemoglobin 8.9 G/DL (12.0-16.0) Hematocrit 25.8 % (37.0-47.0) Mean Corpuscular Volume 84 FL (80-99) Mean Corpuscular Hemoglobin 28.9 PG (27.0-31.0) Mean Corpuscular Hemoglobin Concent 34.5 G/DL (32.0-36.0) Red Cell Distribution Width 13.5 % (11.6-14.8) Platelet Count 369 K/UL (150-450) Mean Platelet Volume 4.5 FL (6.5-10.1) Neutrophils (%) (Auto) % (45.0-75.0) Lymphocytes (%) (Auto) % (20.0-45.0) Monocytes (%) (Auto) % (1.0-10.0) Eosinophils (%) (Auto) % (0.0-3.0) Basophils (%) (Auto) % (0.0-2.0) Sodium Level 132 MMOL/L (136-145) Potassium Level 3.9 MMOL/L (3.5-5.1) Chloride Level 98 MMOL/L (98-107) Carbon Dioxide Level 15 MMOL/L (21-32) Blood Urea Nitrogen 132 mg/dL (7-18) Creatinine 3.4 MG/DL (0.55-1.30) Estimat Glomerular Filtration Rate 14.5 mL/min (>60) Glucose Level 94 MG/DL (74-106) Calcium Level 7.7 MG/DL (8.5-10.1) Phosphorus Level 5.9 MG/DL (2.5-4.9) Magnesium Level 3.1 MG/DL (1.8-2.4) Total Bilirubin 0.3 MG/DL (0.2-1.0) Aspartate Amino Transf (AST/SGOT) 21 U/L (15-37) Alanine Aminotransferase (ALT/SGPT) 8 U/L (12-78) Alkaline Phosphatase 139 U/L (46-116) C-Reactive Protein, Quantitative 9.6 mg/dL (0.00-0.90) Pro-B-Type Natriuretic Peptide > 06674 pg/mL (0-125) Total Protein 6.2 G/DL (6.4-8.2) Albumin 2.8 G/DL (3.4-5.0) Globulin 3.4 g/dL Albumin/Globulin Ratio 0.8 (1.0-2.7) Amylase Level 168 U/L (25-115) Lipase 1072 U/L (73-393) Height (Feet): 5 Height (Inches): 4.00 Weight (Pounds): 150 Objective Physical Exam: Vitals: reviewed General: NAD HEENT: nc, at Neck: supple ++tracn/vent Chest: clear breath sounds bilaterally Cardiovascular: RRR, no s3, s4 Abdomen: soft, nontender, nd +gtube Extremities: no cce, normal range of motion Neuro: alert ++Evan Molina MD Dec 03, 2019 06:37
--- NOTE | 2019-12-03 07:25 | General Progress Note ---
Subjective ROS Limited/Unobtainable: No Allergies: Coded Allergies: No Known Allergies (Unverified , 10/10/17) Objective Last 24 Hour Vital Signs Date Time Temp Pulse Resp B/P (MAP) Pulse Ox O2 Delivery O2 Flow Rate FiO2 12/03/19 05:10 158/75 12/03/19 05:02 79 20 40 12/03/19 04:00 Mechanical Ventilator 12/03/19 04:00 40 12/03/19 04:00 98.2 78 18 167/77 (107) 100 12/03/19 03:30 72 12/03/19 03:13 71 20 40 12/03/19 01:08 68 20 40 12/02/19 23:56 98.5 61 20 164/83 (110) 100 12/02/19 23:52 40 12/02/19 23:51 Mechanical Ventilator 12/02/19 23:30 57 12/02/19 23:11 165/72 12/02/19 22:51 55 20 40 12/02/19 21:02 54 20 40 12/02/19 20:24 62 151/63 12/02/19 20:00 Mechanical Ventilator 12/02/19 20:00 40 12/02/19 20:00 98.1 62 22 151/63 (92) 100 12/02/19 19:30 59 20 40 12/02/19 19:03 63 12/02/19 17:47 151/61 12/02/19 17:30 57 20 40 12/02/19 16:00 40 12/02/19 16:00 Mechanical Ventilator 12/02/19 16:00 97.0 55 20 151/61 (91) 100 12/02/19 16:00 48 12/02/19 16:00 40 12/02/19 15:08 55 20 40 12/02/19 13:23 59 20 40 12/02/19 12:26 131/59 12/02/19 12:00 Mechanical Ventilator 12/02/19 12:00 97.3 61 20 131/59 (83) 100 12/02/19 12:00 50 12/02/19 12:00 40 12/02/19 11:02 61 20 40 12/02/19 09:11 59 20 40 12/02/19 08:57 55 137/59 12/02/19 08:00 40 12/02/19 08:00 Mechanical Ventilator 12/02/19 08:00 40 12/02/19 08:00 58 12/02/19 08:00 58 12/02/19 08:00 98.4 58 20 137/59 (85) 100 12/02/19 08:00 98.4 61 22 137/58 (84) 99 Intake and Output 12/02/19 12/03/19 19:00 07:00 Intake Total 796 ml Output Total 400 ml 400 ml Balance -400 ml 396 ml Intake Free Water 10 ml IV Total 336 ml Other 450 ml Output Urine Total 400 ml 400 ml Laboratory Tests 12/02/19 07:39: POC Whole Blood Glucose 80 12/02/19 12:25: POC Whole Blood Glucose [Pending] 12/02/19 17:56: POC Whole Blood Glucose [Pending] 12/03/19 04:30: White Blood Count 17.0H, Red Blood Count 3.08L, Hemoglobin 8.9L, Hematocrit 25.8L, Mean Corpuscular Volume 84, Mean Corpuscular Hemoglobin 28.9, Mean Corpuscular Hemoglobin Concent 34.5, Red Cell Distribution Width 13.5, Platelet Count 369, Mean Platelet Volume 4.5L, Neutrophils (%) (Auto) , Lymphocytes (%) (Auto) , Monocytes (%) (Auto) , Eosinophils (%) (Auto) , Basophils (%) (Auto) , Neutrophils % (Manual) [Pending], Lymphocytes % (Manual) [Pending], Platelet Estimate [Pending], Platelet Morphology [Pending], Sodium Level 132L, Potassium Level 3.9, Chloride Level 98, Carbon Dioxide Level 15L, Blood Urea Nitrogen 132H , Creatinine 3.4H, Estimat Glomerular Filtration Rate 14.5, Glucose Level 94, Calcium Level 7.7L, Phosphorus Level 5.9H, Magnesium Level 3.1H, Total Bilirubin 0.3, Aspartate Amino Transf (AST/SGOT) 21, Alanine Aminotransferase (ALT/SGPT) 8L, Alkaline Phosphatase 139H, C-Reactive Protein, Quantitative 9.6H, Pro-B-Type Natriuretic Peptide > 71901N, Total Protein 6.2L, Albumin 2.8L, Globulin 3.4, Albumin/Globulin Ratio 0.8L, Amylase Level 168H, Lipase 1072H Height (Feet): 5 Height (Inches): 4.00 Weight (Pounds): 150 General Appearance: lethargic EENT: normal ENT inspection Neck: supple Cardiovascular: normal rate Respiratory/Chest: decreased breath sounds Abdomen: hypoactive bowel sounds Extremities: non-tender Assessment/Plan Assessment/Plan: 1. Coronary artery disease with history of CABG. 2. Respiratory failure with history of tracheotomy. 3. Prior history of bacteremia. 4. History of prior pacemaker, status post explantation due to endovascular infection. 5. Chronic kidney disease. 6. Anemia of chronic kidney disease. 7. History of substance abuse. 8. Hyperlipidemia. 9. dysphagia with GT 10. Vitamin D deficiency. 11. History of aortic dissection and repair in 2018. 12. Paroxysmal atrial fibrillation. 13. Gastroesophageal reflux disease. 14. prei Gt cellulitis 15. pancreatitis repeat labs changed the GT to 22 Fr at the bedside s/p blood transfusion fu stool ob ppi diogenes GT wound care fu CT Inder Mccauley MD Dec 03, 2019 07:25
[2019-12-03 08:00] VITALS: BP 152/65
[2019-12-03] MEDS: HYDROmorphone 2mg tab ORAL SCH ×2 (09:00→20:39)
[2019-12-03] MEDS: Heparin 5000 units/ml inj SUBQ SCH ×2 (09:00→20:39)
[2019-12-03] MEDS: Zinc Sulfate 220mg GT SCH (09:13)
[2019-12-03] MEDS: Nephrovite tab (Rena-Vite) GT SCH (09:13)
[2019-12-03] MEDS: Ascorbic Acid 500mg tab GT SCH (09:14)
[2019-12-03] MEDS: Sodium Citrate 30ml GT SCH ×3 (09:26→17:10)
--- NOTE | 2019-12-03 09:43 | Pulmonology Progress Note ---
Subjective ROS Limited/Unobtainable: No Interval Events: None new Constitutional: Reports: no symptoms HEENT: Repors: no symptoms Respiratory: Reports: no symptoms Cardiovascular: Reports: no symptoms Gastrointestinal/Abdominal: Reports: no symptoms Allergies: Coded Allergies: No Known Allergies (Unverified , 10/10/17) All Systems: reviewed and negative except above Objective Last 24 Hour Vital Signs Date Time Temp Pulse Resp B/P (MAP) Pulse Ox O2 Delivery O2 Flow Rate FiO2 12/03/19 09:14 65 152/65 12/03/19 09:10 152/65 12/03/19 08:48 65 22 40 12/03/19 08:00 40 12/03/19 08:00 Mechanical Ventilator 12/03/19 08:00 98.2 63 20 152/65 (94) 99 12/03/19 07:31 71 12/03/19 07:26 67 24 40 12/03/19 05:10 158/75 12/03/19 05:02 79 20 40 12/03/19 04:00 Mechanical Ventilator 12/03/19 04:00 40 12/03/19 04:00 98.2 78 18 167/77 (107) 100 12/03/19 03:30 72 12/03/19 03:13 71 20 40 12/03/19 01:08 68 20 40 12/02/19 23:56 98.5 61 20 164/83 (110) 100 12/02/19 23:52 40 12/02/19 23:51 Mechanical Ventilator 12/02/19 23:30 57 12/02/19 23:11 165/72 12/02/19 22:51 55 20 40 12/02/19 21:02 54 20 40 12/02/19 20:24 62 151/63 12/02/19 20:00 Mechanical Ventilator 12/02/19 20:00 40 12/02/19 20:00 98.1 62 22 151/63 (92) 100 12/02/19 19:30 59 20 40 12/02/19 19:03 63 12/02/19 17:47 151/61 12/02/19 17:30 57 20 40 12/02/19 16:00 40 12/02/19 16:00 Mechanical Ventilator 12/02/19 16:00 97.0 55 20 151/61 (91) 100 12/02/19 16:00 48 12/02/19 16:00 40 12/02/19 15:08 55 20 40 12/02/19 13:23 59 20 40 12/02/19 12:26 131/59 12/02/19 12:00 Mechanical Ventilator 12/02/19 12:00 97.3 61 20 131/59 (83) 100 12/02/19 12:00 50 12/02/19 12:00 40 12/02/19 11:02 61 20 40 Intake and Output 12/02/19 12/03/19 19:00 07:00 Intake Total 796 ml Output Total 400 ml 400 ml Balance -400 ml 396 ml Intake Free Water 10 ml IV Total 336 ml Other 450 ml Output Urine Total 400 ml 400 ml General Appearance: no acute distress HEENT: normocephalic, status post trach Respiratory: chest wall non-tender, lungs clear Cardiovascular: normal peripheral pulses Abdomen: normal bowel sounds Laboratory Tests 12/02/19 12:25: POC Whole Blood Glucose [Pending] 12/02/19 17:56: POC Whole Blood Glucose [Pending] 12/03/19 04:30: White Blood Count 17.0H, Red Blood Count 3.08L, Hemoglobin 8.9L, Hematocrit 25.8L, Mean Corpuscular Volume 84, Mean Corpuscular Hemoglobin 28.9, Mean Corpuscular Hemoglobin Concent 34.5, Red Cell Distribution Width 13.5, Platelet Count 369, Mean Platelet Volume 4.5L, Neutrophils (%) (Auto) , Lymphocytes (%) (Auto) , Monocytes (%) (Auto) , Eosinophils (%) (Auto) , Basophils (%) (Auto) , Differential Total Cells Counted 100, Neutrophils % (Manual) 85H, Lymphocytes % (Manual) 11L, Monocytes % (Manual) 4, Eosinophils % (Manual) 0, Basophils % (Manual) 0, Band Neutrophils 0, Platelet Estimate Adequate, Platelet Morphology Normal, Hypochromasia 1+, Anisocytosis 1+, Sodium Level 132L, Potassium Level 3.9, Chloride Level 98, Carbon Dioxide Level 15L, Blood Urea Nitrogen 132H, Creatinine 3.4H, Estimat Glomerular Filtration Rate 14.5, Glucose Level 94, Calcium Level 7.7L, Phosphorus Level 5.9H, Magnesium Level 3.1H, Total Bilirubin 0.3, Aspartate Amino Transf (AST/SGOT) 21, Alanine Aminotransferase (ALT/SGPT) 8L, Alkaline Phosphatase 139H, C-Reactive Protein, Quantitative 9.6H, Pro-B-Type Natriuretic Peptide > 57744M, Total Protein 6.2L, Albumin 2.8L, Globulin 3.4, Albumin/Globulin Ratio 0.8L, Amylase Level 168H, Lipase 1072H Current Medications Medications (Trade) Dose Ordered Sig/Penny Route PRN Reason Start Time Stop Time Status Last Admin Dose Admin Acetaminophen (Tylenol) 650 mg Q4H PRN GT Temp >100.5 11/29/19 04:30 12/29/19 04:29 12/02/19 04:08 Acetaminophen/ Hydrocodone Bitart ([place] ) 1 tab Q4H PRN GT For moderate pain 11/29/19 15:30 12/06/19 15:29 Albuterol/ Ipratropium (Albuterol/ Ipratropium) 3 ml Q3H PRN HHN Shortness of Breath 11/29/19 01:30 12/04/19 01:29 Ascorbic Acid (Vitamin C) 500 mg DAILY GT 11/29/19 09:00 12/29/19 08:59 12/03/19 09:14 Barium Sulfate (Readi-Cat 2) 450 ml NOW PRN ORAL Radiology Procedure 12/01/19 21:15 12/03/19 21:14 12/02/19 23:33 Clonidine HCl (Catapres TTS-1) 1 patch ONCE A WEEK TDERMAL 12/03/19 09:00 03/02/20 08:59 12/03/19 09:10 Clotrimazole (Lotrimin) 1 applic THREE TIMES A DAY TOPIC 12/01/19 13:00 02/29/20 12:59 12/03/19 09:17 Epoetin Gelacio (Epoetin Gelacio-EPBX(NON ESRD)) 10,000 unit MON-WED-MON SUBQ 11/29/19 21:00 02/27/20 20:59 12/02/19 20:30 Gentamicin Protocol (Gentamicin pharmacy to dose) 1 ea DAILY PRN MISC Per rx protocol 12/02/19 18:00 01/01/20 17:59 Heparin Sodium (Porcine) (Heparin 5000 units/ml) 5,000 units EVERY 12 HOURS SUBQ 11/29/19 09:00 01/13/20 08:59 12/01/19 20:58 Hydralazine HCl (Apresoline) 25 mg Q6HR GT 11/29/19 18:00 02/27/20 17:59 12/03/19 05:10 Hydromorphone HCl (Dilaudid) 2 mg Q12HR ORAL 12/03/19 09:00 12/10/19 21:59 Lansoprazole (Prevacid) 30 mg DAILY GT 12/01/19 12:00 12/31/19 11:59 12/03/19 09:13 Meropenem 500 mg/ Sodium Chloride 55 ml @ 110 mls/hr Q12H IVPB 11/29/19 15:00 12/04/19 14:59 12/03/19 02:58 Metoclopramide HCl (Reglan) 5 mg Q6HR GT 11/29/19 06:00 12/29/19 05:59 12/03/19 05:09 Metolazone (Zaroxolyn) 2.5 mg QHS GT 11/29/19 21:00 12/29/19 20:59 12/02/19 20:23 Metolazone (Zaroxolyn) 5 mg DAILY GT 11/29/19 09:00 12/29/19 08:59 12/03/19 09:13 Metoprolol Tartrate (Lopressor) 12.5 mg Q12HR ORAL 12/03/19 09:00 03/02/20 08:59 12/03/19 09:14 Polyethylene Glycol (Miralax) 17 gm BEDTIME GT 11/29/19 21:00 12/29/19 20:59 12/02/19 20:23 Sodium Citrate (Bicitra) 30 ml EVERY 6 HOURS GT 12/03/19 09:00 01/02/20 08:59 12/03/19 09:26 Vitamin B Complex/ Vit C/Folic Acid (Nephrovite) 1 tab DAILY GT 11/29/19 09:00 12/29/19 08:59 12/03/19 09:13 Zinc Sulfate (Zinc Sulfate) 220 mg DAILY GT 11/29/19 09:00 02/27/20 08:59 12/03/19 09:13 Assessment/Plan Assessment/Plan Assessment: COVID19 neg x1 Sepsis U TI Pl effusion PNA Low grade fever Leukocytosis, Acute on chronic hypoxic resp failure JAVIER on CKD- hx of Recent MDR PnA, sp rx H/o PPM site (pocket) infection and pocket abscess 2ry to S. epi-11/2018, sp >6weeks IV vancomycin CAD s/p CABG GERD/gastritis Afib HTN Dysphagia sp GT Aortic dissection s/p repair 2017, S/p PPM Parkinson's Disease Schizophrenia Anxiety COPD Chronic resp failure s/p trach Hx of tracheal bleeding [place] resident ([facility]) Plan: -Continue empiric abx -Monitor CBC/CMP, temperatures -PEG/trach care -aspiration precautions -COVID19 isolation and testing; -s/p thoracentesis- sent fluid analysis and culture - Will wean FiO2 down; currently on 40% FiO2 Elijah Stephen MD Dec 03, 2019 09:43
--- NOTE | 2019-12-03 10:37 | Nephrology Progress Note ---
Assessment/Plan Problem List: (1) JAVIER (acute kidney injury) (2) Renal failure (ARF), acute on chronic (3) Feeding by G-tube (4) Tracheostomy in place (5) Electrolyte imbalance (6) Anemia (7) Respiratory failure, acute and chronic (8) Elevated lipase Assessment Patient is presented with sepsis and pneumonia and UTI, hypoxia Patient has acute renal failure, possible underlying chronic kidney failure Severe anemia Electrolyte imbalances: Hyponatremia, hypo-kalemia Chronic respiratory failure, COPD exacerbation Has sacral decubitus ulcer stage IV PEG Plan December 02: Labs reviewed. Serum lipase decreasing. On 20 cc an hour Nepro via GT tube. Renal parameters unchanged. Urine output well maintained. Continue per consultants. White blood cells 17,000, hemoglobin 8.9. December 01: Lab reviewed. Hemoglobin higher. Serum creatinine 3.4. Creatinine clearance calculated . Serum lipase lowering. Continue per current management. November 30: Patient transfused. Hemoglobin higher. Serum sodium lower. Renal parameters unchanged. Trial of 3% saline. Continue monitor renal parameters. May require dialysis treatment depending on the how her condition evolves. Previously Consider transfusion Urine studies Adjust blood pressure medication Albumin bolus Norman catheter, intake and output Monitor renal parameters Avoid nephrotoxic's Antibiotics Per orders Subjective ROS Limited/Unobtainable: Yes Objective Objective Last 24 Hour Vital Signs Date Time Temp Pulse Resp B/P (MAP) Pulse Ox O2 Delivery O2 Flow Rate FiO2 12/03/19 09:14 65 152/65 12/03/19 09:10 152/65 12/03/19 08:48 65 22 40 12/03/19 08:00 40 12/03/19 08:00 Mechanical Ventilator 12/03/19 08:00 98.2 63 20 152/65 (94) 99 12/03/19 07:31 71 12/03/19 07:26 67 24 40 12/03/19 05:10 158/75 12/03/19 05:02 79 20 40 12/03/19 04:00 Mechanical Ventilator 12/03/19 04:00 40 12/03/19 04:00 98.2 78 18 167/77 (107) 100 12/03/19 03:30 72 12/03/19 03:13 71 20 40 12/03/19 01:08 68 20 40 12/02/19 23:56 98.5 61 20 164/83 (110) 100 12/02/19 23:52 40 12/02/19 23:51 Mechanical Ventilator 12/02/19 23:30 57 12/02/19 23:11 165/72 12/02/19 22:51 55 20 40 12/02/19 21:02 54 20 40 12/02/19 20:24 62 151/63 12/02/19 20:00 Mechanical Ventilator 12/02/19 20:00 40 12/02/19 20:00 98.1 62 22 151/63 (92) 100 12/02/19 19:30 59 20 40 12/02/19 19:03 63 12/02/19 17:47 151/61 12/02/19 17:30 57 20 40 12/02/19 16:00 40 12/02/19 16:00 Mechanical Ventilator 12/02/19 16:00 97.0 55 20 151/61 (91) 100 12/02/19 16:00 48 12/02/19 16:00 40 12/02/19 15:08 55 20 40 12/02/19 13:23 59 20 40 12/02/19 12:26 131/59 12/02/19 12:00 Mechanical Ventilator 12/02/19 12:00 97.3 61 20 131/59 (83) 100 12/02/19 12:00 50 12/02/19 12:00 40 12/02/19 11:02 61 20 40 Intake and Output 12/02/19 12/03/19 19:00 07:00 Intake Total 796 ml Output Total 400 ml 400 ml Balance -400 ml 396 ml Intake Free Water 10 ml IV Total 336 ml Other 450 ml Output Urine Total 400 ml 400 ml Laboratory Tests 12/02/19 12:25: POC Whole Blood Glucose [Pending] 12/02/19 17:56: POC Whole Blood Glucose [Pending] 12/03/19 04:30: White Blood Count 17.0H, Red Blood Count 3.08L, Hemoglobin 8.9L, Hematocrit 25.8L, Mean Corpuscular Volume 84, Mean Corpuscular Hemoglobin 28.9, Mean Corpuscular Hemoglobin Concent 34.5, Red Cell Distribution Width 13.5, Platelet Count 369, Mean Platelet Volume 4.5L, Neutrophils (%) (Auto) , Lymphocytes (%) (Auto) , Monocytes (%) (Auto) , Eosinophils (%) (Auto) , Basophils (%) (Auto) , Differential Total Cells Counted 100, Neutrophils % (Manual) 85H, Lymphocytes % (Manual) 11L, Monocytes % (Manual) 4, Eosinophils % (Manual) 0, Basophils % (Manual) 0, Band Neutrophils 0, Platelet Estimate Adequate, Platelet Morphology Normal, Hypochromasia 1+, Anisocytosis 1+, Sodium Level 132L, Potassium Level 3.9, Chloride Level 98, Carbon Dioxide Level 15L, Blood Urea Nitrogen 132H, Creatinine 3.4H, Estimat Glomerular Filtration Rate 14.5, Glucose Level 94, Calcium Level 7.7L, Phosphorus Level 5.9H, Magnesium Level 3.1H, Total Bilirubin 0.3, Aspartate Amino Transf (AST/SGOT) 21, Alanine Aminotransferase (ALT/SGPT) 8L, Alkaline Phosphatase 139H, C-Reactive Protein, Quantitative 9.6H, Pro-B-Type Natriuretic Peptide > 75140J, Total Protein 6.2L, Albumin 2.8L, Globulin 3.4, Albumin/Globulin Ratio 0.8L, Amylase Level 168H, Lipase 1072H Height (Feet): 5 Height (Inches): 4.00 Weight (Pounds): 150 General Appearance: no apparent distress, lethargic EENT: other - Trach to vent Cardiovascular: normal rate Respiratory/Chest: decreased breath sounds Abdomen: distended Johnny Houston MD Dec 03, 2019 10:37
[2019-12-03 11:30] VITALS: BP 156/72
--- NOTE | 2019-12-03 12:46 | Infectious Diseases Prog Note ---
Assessment/Plan Assessment: COVID19 neg x2 (11/27 & rapid COVID PCR neg) Sepsis U TI -11/27 u/a wbc 30-40, nit neg, leuk +3; ucx ESBL P. mirablis, ESBL M. morganii Pl effusion, transudate - 11/28 Sp [place] (w: 169, PMN: 2%, L: 49% , LDH: 57, prot 2.5); cx NTD PNA -11/28 CXR: Resolved right pleural effusion, status post thoracentesis. No radiographically evident complication Sp cx ESBL P. mirablis (S Meropenem, Zosyn), MDR PsA (S Gentamycin) Influenza ag neg -11/27 CXR: Increasing hazy right lung diffuse opacity. Suspect at least in part due to overlying soft tissue, but developing infiltrate also possible. Persistent and slightly increased left retrocardiac consolidation and slightly increased left pleural effusion -11/27 Bcx NTD Fever , improving Leukocytosis, persistent -12/02 CT abd/p wo: Study substantially limited due to lack of IV contrast and severe anasarca and moderate nonloculated ascites. Left nephroureteral stent in the decompressed left, atrophic renal collecting system. No evident urolithiasis. Incompletely evaluated chronic aortic dissection not well seen on this study due to lack of IV contrast and severe anasarca. Bilateral moderate low-attenuation, partially loculated pleural effusions with extensive passive atelectasis; correlate to exclude superimposed aspiration or pneumonia.Percutan eous gastrostomy tube. Norman catheter in decompressed urinary bladder. Likely chronic appearing right intertrochanteric hip fracture. Possible sacral decubitus ulcer, recommend direct visualization. Acute on chronic hypoxic resp failure JAVIER on CKD; improving- on previous admission Sep-Oct 2019 required HD for short period hx of Recent MDR PnA, sp rx 10/15/19 sp cx ESBL P. mirabilis, MDR P.a. ( S only to Gent) 09/22 Resp cx + MDR PsA (S-gent; I-colistin; R-levofloxacin, Zosyn, angelo) 09/16/19 Sp cx ESBL P. mirablis hx of recent UTI 09/15/19 u/a wbc tnct, nit neg, leuk +3; ucx >100k MDR P. stuarti (S Ceftriaxone, Meropenem) 10/07 u/a wbc tnct, nit neg, leuk ; ucx >100k VRE 10/15/19 u/a wbc tnct; ucx >100k ESBL P. stuarti (S ertapenem, aztreonam) H/o PPM site (pocket) infection and pocket abscess 2ry to S. epi-11/2018, sp >6weeks IV vancomycin 11/27 SP ABBIE: no evidence for vegetation on any of the valves 11/26/18 SP PPM removal: OR findings:The fibrous capsule enclosing the generator was then opened and there was a [id number] amount of yellowish fluid drainage. The generator was then removed.Atrial and ventricular leads were detached. The necrotic tissue of the pocket was then removed and the pocket was flushed with an antibiotic solution. Capsule, wound tissue and lead tip cx: Neg 2d echo: no vegetation seen US chest: 4.6 x 3.4 x 0.9 cm hypoechoic/anechoic area overlying left chest pacemaker power pack. This could represent either a discrete fluid collection or a focal area of very edematous tissue. Infected fluid pocket also possible. 11/18 Bcx 3/4 S. epi; 11/20 Bcx neg; 11/24 Bcx Neg; 11/27 Bcx Neg CAD s/p CABG GERD/gastritis Afib HTN Dysphagia sp GT Aortic dissection s/p repair 2017, S/p PPM Parkinson's Disease Schizophrenia Anxiety COPD Chronic resp failure s/p trach Hx of tracheal bleeding [place] resident ([facility]) VRE and MRSA colonized Plan: -Meropenem # 5/7-10 and IV Gentamycin #2/7 for MDR PsA -12/01 SP IV Vancomycin #5 - 11/28 Sp Cefepime #2 and IV Gentamycin x1 -f/u cx -Monitor CBC/CMP, temperatures -f/u legionella ag urine -PEG/trach care -aspiration precautions -COVID19 neg x2 -for thoracentesis- send fluid analysis and culture Subjective Allergies: Coded Allergies: No Known Allergies (Unverified , 10/10/17) afebrile >24hrs wbc remains bt 15-17 Bcx NTD Objective Last 24 Hour Vital Signs Date Time Temp Pulse Resp B/P (MAP) Pulse Ox O2 Delivery O2 Flow Rate FiO2 12/03/19 11:30 98.2 66 20 156/72 (100) 99 12/03/19 10:57 63 24 40 12/03/19 09:14 65 152/65 12/03/19 09:10 152/65 12/03/19 08:48 65 22 40 12/03/19 08:00 40 12/03/19 08:00 Mechanical Ventilator 12/03/19 08:00 98.2 63 20 152/65 (94) 99 12/03/19 07:31 71 12/03/19 07:26 67 24 40 12/03/19 05:10 158/75 12/03/19 05:02 79 20 40 12/03/19 04:00 Mechanical Ventilator 12/03/19 04:00 40 12/03/19 04:00 98.2 78 18 167/77 (107) 100 12/03/19 03:30 72 12/03/19 03:13 71 20 40 12/03/19 01:08 68 20 40 12/02/19 23:56 98.5 61 20 164/83 (110) 100 12/02/19 23:52 40 12/02/19 23:51 Mechanical Ventilator 12/02/19 23:30 57 12/02/19 23:11 165/72 12/02/19 22:51 55 20 40 12/02/19 21:02 54 20 40 12/02/19 20:24 62 151/63 12/02/19 20:00 Mechanical Ventilator 12/02/19 20:00 40 12/02/19 20:00 98.1 62 22 151/63 (92) 100 12/02/19 19:30 59 20 40 12/02/19 19:03 63 12/02/19 17:47 151/61 12/02/19 17:30 57 20 40 12/02/19 16:00 40 12/02/19 16:00 Mechanical Ventilator 12/02/19 16:00 97.0 55 20 151/61 (91) 100 12/02/19 16:00 48 12/02/19 16:00 40 12/02/19 15:08 55 20 40 12/02/19 13:23 59 20 40 Height (Feet): 5 Height (Inches): 4.00 Weight (Pounds): 150 General Appearance: no acute distress HEENT: atraumatic Respiratory/Chest: no respiratory distress Cardiovascular: regular rhythm Laboratory Tests Test 12/02/19 17:56 12/03/19 04:30 POC Whole Blood Glucose Pending White Blood Count 17.0 K/UL (4.8-10.8) H Red Blood Count 3.08 M/UL (4.20-5.40) L Hemoglobin 8.9 G/DL (12.0-16.0) L Hematocrit 25.8 % (37.0-47.0) L Mean Corpuscular Volume 84 FL (80-99) Mean Corpuscular Hemoglobin 28.9 PG (27.0-31.0) Mean Corpuscular Hemoglobin Concent 34.5 G/DL (32.0-36.0) Red Cell Distribution Width 13.5 % (11.6-14.8) Platelet Count 369 K/UL (150-450) Mean Platelet Volume 4.5 FL (6.5-10.1) L Neutrophils (%) (Auto) % (45.0-75.0) Lymphocytes (%) (Auto) % (20.0-45.0) Monocytes (%) (Auto) % (1.0-10.0) Eosinophils (%) (Auto) % (0.0-3.0) Basophils (%) (Auto) % (0.0-2.0) Differential Total Cells Counted 100 Neutrophils % (Manual) 85 % (45-75) H Lymphocytes % (Manual) 11 % (20-45) L Monocytes % (Manual) 4 % (1-10) Eosinophils % (Manual) 0 % (0-3) Basophils % (Manual) 0 % (0-2) Band Neutrophils 0 % (0-8) Platelet Estimate Adequate Platelet Morphology Normal Hypochromasia 1+ Anisocytosis 1+ Sodium Level 132 MMOL/L (136-145) L Potassium Level 3.9 MMOL/L (3.5-5.1) Chloride Level 98 MMOL/L (98-107) Carbon Dioxide Level 15 MMOL/L (21-32) L Blood Urea Nitrogen 132 mg/dL (7-18) H Creatinine 3.4 MG/DL (0.55-1.30) H Estimat Glomerular Filtration Rate 14.5 mL/min (>60) Glucose Level 94 MG/DL (74-106) Calcium Level 7.7 MG/DL (8.5-10.1) L Phosphorus Level 5.9 MG/DL (2.5-4.9) H Magnesium Level 3.1 MG/DL (1.8-2.4) H Total Bilirubin 0.3 MG/DL (0.2-1.0) Aspartate Amino Transf (AST/SGOT) 21 U/L (15-37) Alanine Aminotransferase (ALT/SGPT) 8 U/L (12-78) L Alkaline Phosphatase 139 U/L (46-116) H C-Reactive Protein, Quantitative 9.6 mg/dL (0.00-0.90) H Pro-B-Type Natriuretic Peptide > 26914 pg/mL (0-125) H Total Protein 6.2 G/DL (6.4-8.2) L Albumin 2.8 G/DL (3.4-5.0) L Globulin 3.4 g/dL Albumin/Globulin Ratio 0.8 (1.0-2.7) L Amylase Level 168 U/L (25-115) H Lipase 1072 U/L (73-393) H Current Medications Medications (Trade) Dose Ordered Sig/Penny Route PRN Reason Start Time Stop Time Status Last Admin Dose Admin Acetaminophen (Tylenol) 650 mg Q4H PRN GT Temp >100.5 11/29/19 04:30 12/29/19 04:29 12/02/19 04:08 Acetaminophen/ Hydrocodone Bitart ([place] 10) 1 tab Q4H PRN GT For moderate pain 11/29/19 15:30 12/06/19 15:29 Albuterol/ Ipratropium (Albuterol/ Ipratropium) 3 ml Q3H PRN HHN Shortness of Breath 11/29/19 01:30 12/04/19 01:29 Ascorbic Acid (Vitamin C) 500 mg DAILY GT 11/29/19 09:00 12/29/19 08:59 12/03/19 09:14 Barium Sulfate (Readi-Cat 2) 450 ml NOW PRN ORAL Radiology Procedure 12/01/19 21:15 12/03/19 21:14 12/02/19 23:33 Clonidine HCl (Catapres TTS-1) 1 patch ONCE A WEEK TDERMAL 12/03/19 09:00 03/02/20 08:59 12/03/19 09:10 Clotrimazole (Lotrimin) 1 applic THREE TIMES A DAY TOPIC 12/01/19 13:00 02/29/20 12:59 12/03/19 09:17 Epoetin Gelacio (Epoetin Gelacio-EPBX(NON ESRD)) 10,000 unit MON-MON-MON SUBQ 11/29/19 21:00 02/27/20 20:59 12/02/19 20:30 Gentamicin Protocol (Gentamicin pharmacy to dose) 1 ea DAILY PRN MISC Per rx protocol 12/02/19 18:00 01/01/20 17:59 Heparin Sodium (Porcine) (Heparin 5000 units/ml) 5,000 units EVERY 12 HOURS SUBQ 11/29/19 09:00 01/13/20 08:59 12/01/19 20:58 Hydralazine HCl (Apresoline) 25 mg Q6HR GT 11/29/19 18:00 02/27/20 17:59 12/03/19 05:10 Hydromorphone HCl (Dilaudid) 2 mg Q12HR ORAL 12/03/19 09:00 12/10/19 21:59 Lansoprazole (Prevacid) 30 mg DAILY GT 12/01/19 12:00 12/31/19 11:59 12/03/19 09:13 Meropenem 500 mg/ Sodium Chloride 55 ml @ 110 mls/hr Q12H IVPB 11/29/19 15:00 12/04/19 14:59 12/03/19 02:58 Metoclopramide HCl (Reglan) 5 mg Q6HR GT 11/29/19 06:00 12/29/19 05:59 12/03/19 05:09 Metolazone (Zaroxolyn) 2.5 mg QHS GT 11/29/19 21:00 12/29/19 20:59 12/02/19 20:23 Metolazone (Zaroxolyn) 5 mg DAILY GT 11/29/19 09:00 12/29/19 08:59 12/03/19 09:13 Metoprolol Tartrate (Lopressor) 12.5 mg Q12HR ORAL 12/03/19 09:00 03/02/20 08:59 12/03/19 09:14 Polyethylene Glycol (Miralax) 17 gm BEDTIME GT 11/29/19 21:00 12/29/19 20:59 12/02/19 20:23 Sodium Citrate (Bicitra) 30 ml EVERY 6 HOURS GT 12/03/19 09:00 01/02/20 08:59 12/03/19 09:26 Vitamin B Complex/ Vit C/Folic Acid (Nephrovite) 1 tab DAILY GT 11/29/19 09:00 12/29/19 08:59 12/03/19 09:13 Zinc Sulfate (Zinc Sulfate) 220 mg DAILY GT 11/29/19 09:00 02/27/20 08:59 12/03/19 09:13 Doreen Nino M.D. Dec 03, 2019 12:46
[2019-12-03] MEDS ORDERED: NS 275ml ONE (13:30)
[2019-12-03] MEDS ORDERED: Tubing IV Secondary IV ONE (13:30)
[2019-12-03 16:00] VITALS: BP 157/96
[2019-12-03] MEDS: Sodium Bicarbonate 50ml Carp IV SCH ×2 (19:15→19:25)
[2019-12-03 20:00] VITALS: BP 166/94
--- NOTE | 2019-12-03 20:00 | General Progress Note ---
Subjective Constitutional: Reports: no symptoms HEENT: Reports: no symptoms Cardiovascular: Reports: edema Respiratory: Reports: no symptoms Gastrointestinal/Abdominal: Reports: no symptoms, abdomen distended Neurologic/Psychiatric: Reports: no symptoms Hematologic/Lymphatic: Reports: no symptoms Allergies: Coded Allergies: No Known Allergies (Unverified , 10/10/17) Objective Last 24 Hour Vital Signs Date Time Temp Pulse Resp B/P (MAP) Pulse Ox O2 Delivery O2 Flow Rate FiO2 12/03/19 19:10 67 20 80 12/03/19 17:10 157/96 12/03/19 17:04 65 21 100 12/03/19 16:00 72 12/03/19 16:00 100 12/03/19 16:00 97.7 66 21 157/96 (116) 100 12/03/19 16:00 Mechanical Ventilator 12/03/19 15:09 83 30 40 12/03/19 13:06 78 36 40 12/03/19 12:51 156/72 12/03/19 12:00 40 12/03/19 12:00 Mechanical Ventilator 12/03/19 11:41 63 12/03/19 11:30 98.2 66 20 156/72 (100) 99 12/03/19 10:57 63 24 40 12/03/19 09:14 65 152/65 12/03/19 09:10 152/65 12/03/19 08:48 65 22 40 12/03/19 08:00 40 12/03/19 08:00 Mechanical Ventilator 12/03/19 08:00 98.2 63 20 152/65 (94) 99 12/03/19 07:31 71 12/03/19 07:26 67 24 40 12/03/19 05:10 158/75 12/03/19 05:02 79 20 40 12/03/19 04:00 Mechanical Ventilator 12/03/19 04:00 40 12/03/19 04:00 98.2 78 18 167/77 (107) 100 12/03/19 03:30 72 12/03/19 03:13 71 20 40 12/03/19 01:08 68 20 40 12/02/19 23:56 98.5 61 20 164/83 (110) 100 12/02/19 23:52 40 12/02/19 23:51 Mechanical Ventilator 10/19/20 23:30 57 12/02/19 23:11 165/72 12/02/19 22:51 55 20 40 12/02/19 21:02 54 20 40 12/02/19 20:24 62 151/63 12/02/19 20:00 Mechanical Ventilator 12/02/19 20:00 40 12/02/19 20:00 98.1 62 22 151/63 (92) 100 Intake and Output 12/02/19 12/03/19 19:00 07:00 Intake Total 796 ml Output Total 400 ml 400 ml Balance -400 ml 396 ml Intake Free Water 10 ml IV Total 336 ml Other 450 ml Output Urine Total 400 ml 400 ml Laboratory Tests 12/03/19 04:30: White Blood Count 17.0H, Red Blood Count 3.08L, Hemoglobin 8.9L, Hematocrit 25.8L, Mean Corpuscular Volume 84, Mean Corpuscular Hemoglobin 28.9, Mean Corpuscular Hemoglobin Concent 34.5, Red Cell Distribution Width 13.5, Platelet Count 369, Mean Platelet Volume 4.5L, Neutrophils (%) (Auto) , Lymphocytes (%) (Auto) , Monocytes (%) (Auto) , Eosinophils (%) (Auto) , Basophils (%) (Auto) , Differential Total Cells Counted 100, Neutrophils % (Manual) 85H, Lymphocytes % (Manual) 11L, Monocytes % (Manual) 4, Eosinophils % (Manual) 0, Basophils % (Manual) 0, Band Neutrophils 0, Platelet Estimate Adequate, Platelet Morphology Normal, Hypochromasia 1+, Anisocytosis 1+, Sodium Level 132L, Potassium Level 3.9, Chloride Level 98, Carbon Dioxide Level 15L, Blood Urea Nitrogen 132H, Creatinine 3.4H, Estimat Glomerular Filtration Rate 14.5, Glucose Level 94, Calcium Level 7.7L, Phosphorus Level 5.9H, Magnesium Level 3.1H, Total Bilirubin 0.3, Aspartate Amino Transf (AST/SGOT) 21, Alanine Aminotransferase (ALT/SGPT) 8L, Alkaline Phosphatase 139H, C-Reactive Protein, Quantitative 9.6H, Pro-B-Type Natriuretic Peptide > 77487F, Total Protein 6.2L, Albumin 2.8L, Globulin 3.4, Albumin/Globulin Ratio 0.8L, Amylase Level 168H, Lipase 1072H 12/03/19 13:24: Arterial Blood pH 7.268L, Arterial Blood Partial Pressure CO2 32.1L, Arterial Blood Partial Pressure O2 106.2H, Arterial Blood HCO3 14.3*L, Arterial Blood Oxygen Saturation 97.2, Arterial Blood Base Excess -11.5*L, Rojas Test Positive 12/03/19 18:15: Random Gentamicin Level [Pending] Height (Feet): 5 Height (Inches): 4.00 Weight (Pounds): 150 General Appearance: WD/WN, lethargic, moderate distress EENT: normal ENT inspection Neck: supple Cardiovascular: normal rate, regular rhythm, no gallop/murmur, no JVD, tachycardia Respiratory/Chest: lungs clear, no accessory muscle use, decreased breath sound s, rhonchi - bilaterally Abdomen: non tender, soft, no organomegaly, no mass, distended Extremities: non-tender Neurologic: unresponsive Skin: warm/dry Assessment/Plan Status Narrative Patient condition deteriorated today. Yesterday she was found to have acute pancreatitis with elevated amylase and lipase CT scan of the abdomen pelvis ordered patient underwent for the CT scan with oral contrast only however no new findings regarding the pancreas were identified that could help in the management of this case on the same time patient developed severe acidosis with arterial blood gas with pH of 7.2 she received to ambulate of IV bicarb and bicarb drip was initiated as well her WBC increased to 19,000 clinically she is below not responded previously repeat ABG will be done once IV bicarb has been initiated. Laboratory tests will be done in a.m. Lucas Canales MD, MD Dec 03, 2019 20:00
[2019-12-03] MEDS: metOLazone 2.5 MG TAB GT SCH (20:38)
[2019-12-03] MEDS: Metoprolol Tartrate 12.5mg TAB ORAL SCH (20:39)
[2019-12-03] MEDS: Miralax 17gm pkt GT SCH (20:39)
[2019-12-03] MEDS: Sodium Bicarbonate 100 ML in D5W 1000ml 1,000 ML IV SCH (20:48)
--- NOTE | 2019-12-03 23:00 | Surgery Progress Note ---
Surgery Progress Note Subjective Symptoms: tolerating diet, passing flatus, BM Objective Last 24 Hour Vital Signs Date Time Temp Pulse Resp B/P (MAP) Pulse Ox O2 Delivery O2 Flow Rate FiO2 12/03/19 22:33 69 24 70 12/03/19 20:51 65 20 80 20 20:39 65 166/94 12/03/19 20:00 98.2 67 26 166/94 (118) 100 12/03/19 20:00 Mechanical Ventilator 12/03/19 19:50 70 12/03/19 19:10 67 20 80 12/03/19 17:10 157/96 12/03/19 17:04 65 21 100 12/03/19 16:00 72 12/03/19 16:00 100 12/03/19 16:00 97.7 66 21 157/96 (116) 100 12/03/19 16:00 Mechanical Ventilator 12/03/19 15:09 83 30 40 12/03/19 13:06 78 36 40 12/03/19 12:51 156/72 12/03/19 12:00 40 12/03/19 12:00 Mechanical Ventilator 12/03/19 11:41 63 12/03/19 11:30 98.2 66 20 156/72 (100) 99 12/03/19 10:57 63 24 40 12/03/19 09:14 65 152/65 12/03/19 09:10 152/65 12/03/19 08:48 65 22 40 12/03/19 08:00 40 12/03/19 08:00 Mechanical Ventilator 12/03/19 08:00 98.2 63 20 152/65 (94) 99 12/03/19 07:31 71 12/03/19 07:26 67 24 40 12/03/19 05:10 158/75 12/03/19 05:02 79 20 40 12/03/19 04:00 Mechanical Ventilator 12/03/19 04:00 40 12/03/19 04:00 98.2 78 18 167/77 (107) 100 12/03/19 03:30 72 12/03/19 03:13 71 20 40 12/03/19 01:08 68 20 40 12/02/19 23:56 98.5 61 20 164/83 (110) 100 12/02/19 23:52 40 12/02/19 23:51 Mechanical Ventilator 12/02/19 23:30 57 12/02/19 23:11 165/72 I&O Intake and Output 12/02/19 12/03/19 19:00 07:00 Intake Total 796 ml Output Total 400 ml 400 ml Balance -400 ml 396 ml Intake Free Water 10 ml IV Total 336 ml Other 450 ml Output Urine Total 400 ml 400 ml Dressing: saturated Cardiovascular: RSR Respiratory: decreased breath sounds Abdomen: non-tender, present bowel sounds Extremities: no tenderness, no cyanosis Laboratory Tests Test 12/03/19 04:30 12/03/19 13:24 12/03/19 18:15 12/03/19 21:00 White Blood Count 17.0 K/UL (4.8-10.8) H Red Blood Count 3.08 M/UL (4.20-5.40) L Hemoglobin 8.9 G/DL (12.0-16.0) L Hematocrit 25.8 % (37.0-47.0) L Mean Corpuscular Volume 84 FL (80-99) Mean Corpuscular Hemoglobin 28.9 PG (27.0-31.0) Mean Corpuscular Hemoglobin Concent 34.5 G/DL (32.0-36.0) Red Cell Distribution Width 13.5 % (11.6-14.8) Platelet Count 369 K/UL (150-450) Mean Platelet Volume 4.5 FL (6.5-10.1) L Neutrophils (%) (Auto) % (45.0-75.0) Lymphocytes (%) (Auto) % (20.0-45.0) Monocytes (%) (Auto) % (1.0-10.0) Eosinophils (%) (Auto) % (0.0-3.0) Basophils (%) (Auto) % (0.0-2.0) Differential Total Cells Counted 100 Neutrophils % (Manual) 85 % (45-75) H Lymphocytes % (Manual) 11 % (20-45) L Monocytes % (Manual) 4 % (1-10) Eosinophils % (Manual) 0 % (0-3) Basophils % (Manual) 0 % (0-2) Band Neutrophils 0 % (0-8) Platelet Estimate Adequate Platelet Morphology Normal Hypochromasia 1+ Anisocytosis 1+ Sodium Level 132 MMOL/L (136-145) L Potassium Level 3.9 MMOL/L (3.5-5.1) Chloride Level 98 MMOL/L (98-107) Carbon Dioxide Level 15 MMOL/L (21-32) L Blood Urea Nitrogen 132 mg/dL (7-18) H Creatinine 3.4 MG/DL (0.55-1.30) H Estimat Glomerular Filtration Rate 14.5 mL/min (>60) Glucose Level 94 MG/DL (74-106) Calcium Level 7.7 MG/DL (8.5-10.1) L Phosphorus Level 5.9 MG/DL (2.5-4.9) H Magnesium Level 3.1 MG/DL (1.8-2.4) H Total Bilirubin 0.3 MG/DL (0.2-1.0) Aspartate Amino Transf (AST/SGOT) 21 U/L (15-37) Alanine Aminotransferase (ALT/SGPT) 8 U/L (12-78) L Alkaline Phosphatase 139 U/L (46-116) H C-Reactive Protein, Quantitative 9.6 mg/dL (0.00-0.90) H Pro-B-Type Natriuretic Peptide > 10771 pg/mL (0-125) H Total Protein 6.2 G/DL (6.4-8.2) L Albumin 2.8 G/DL (3.4-5.0) L Globulin 3.4 g/dL Albumin/Globulin Ratio 0.8 (1.0-2.7) L Amylase Level 168 U/L (25-115) H Lipase 1072 U/L (73-393) H Arterial Blood pH 7.268 (7.350-7.450) 7.405 (7.350-7.450) Arterial Blood Partial Pressure CO2 32.1 mmHg (35.0-45.0) L 27.0 mmHg (35.0-45.0) L Arterial Blood Partial Pressure O2 106.2 mmHg (75.0-100.0) H 121.0 mmHg (75.0-100.0) H Arterial Blood HCO3 14.3 mmol/L (22.0-26.0) *L 16.5 mmol/L (22.0-26.0) *L Arterial Blood Oxygen Saturation 97.2 % (95-100) 98.2 % (95-100) Arterial Blood Base Excess -11.5 (-2-2) *L -7.1 (-2-2) L Rojas Test Positive Positive Random Gentamicin Level 6.1 ug/mL Plan Problems: (1) Dehydration (2) Acidosis (3) Anemia (4) Depression (5) Pancreatitis Assessment & Plan: 49F leukocytosis, elevated lip, lft's noted septic. work up ongoing npo iv fluids iv abx imaging ordered lipase worsening npo pending CT DAILY ESTIMATED NEEDS: Needs based on Critical care, wound, 56.8kg 28-33 kcals/kg 9547-7345 total kcals 1.25-2 g protein/kg 71-114 g total protein Fluid per MD NUTRITION DIAGNOSIS: * Swallowing difficulty R/T dysphagia, respiratory status as evidenced by vent dep via trach, GT Dep. * Increase kcal and pro needs r/t wound healing and wasting as evidenced by stage 4 sacral wound. CURRENT TF:Nepro @ 40ml/hr x 20 hrs ENTERAL NUTRITION RECOMMENDATIONS: Nepro @ 45ml/hr x 20 hrs to provide 900ml, 1620kcal, 73g prot, 654ml free water * Increase TF to goal of 45ml/hr x20 hrs to better meet est needs * Water flush per MD * HOB over 30 degrees ADDITIONAL RECOMMENDATIONS: * Per SNF: HT=63", XN=906dmh -> rec calibrated bedscale wt (Bed reads 79.4kg) * Rec TF increase as above to better meet est needs * F/up w/ H&P * WC-> continue Vit C, ZnSO4, Nephrovite Add FRANKLIN in 4oz BID for wound care (6) Pleural effusion (7) Renal failure (8) Respiratory failure (9) Schizophrenia (10) Hypoxia (11) Sepsis (12) UTI (urinary tract infection) (13) Pneumonia (14) ARF (acute renal failure) (15) NSTEMI (non-ST elevated myocardial infarction) (16) Tracheostomy in place (17) Feeding by G-tube (18) JAVIER (acute kidney injury) (19) Acute encephalopathy (20) Sacral decubitus ulcer, stage IV Assessment & Plan: Pt presented on admission with Full thickness stage 4 Sacral Pressure injury which extends into R gluteal cheek. Base of wound is granular with bone exposure at base of sacrococcygeal. Pt presented on admission with tracheostomy, GT, Full Thickness Pressure Injury Sacrococcygeal.Base of wound is 40% soft necrosis, 60% noni with undermined borders(L)5.8cm x (W)5.5cm x (D)1.5cm, undermining clockwise 10-1 by 2.7cm @12o 'clock.(+) Epibole along edges with scattered slough. Small area that is purple and indurated noted clockwise @7-8o'clock along borders.Small amt serous exudate noted.Mild odor noted. hyperpigmentation periwound. At L ischium are two areas of dry pink epithelial with surrounding hyperpigmentation. Both heels are boggy with [id number] erythema. Tx.Plan: Cleanse sacral wound with Saline. Loosely pack with Hydrogel impregnated kerlix. Apply Moisture Barrier Paste periwound. Cover with Optifoam drsg Daily and prn. Apply Cavilon Skin Barrier to both heels and malleoli. Cover eachsite with Optifoam drsgs. Change every 7 days and prn. Reposition at least every 2hours or as tolerated. Off-load heels with pillow. APM/Maxwell Mattress overlay. (21) Chronic respiratory failure (22) Hypokalemia (23) Ascites (24) Bacteremia (25) Hypernatremia (26) Proteinuria (27) Electrolyte imbalance (28) Pacemaker (29) ACS (acute coronary syndrome) (30) Aortic dissection, thoracic (31) Respiratory failure, acute and chronic (32) JAVIER (acute kidney injury) (33) Abrasion of lip, initial encounter (34) COPD with exacerbation (35) Elevated alkaline phosphatase level (36) Renal failure (ARF), acute on chronic (37) HCAP (healthcare-associated pneumonia) (38) GT CLOGGED Lane Saavedra Dec 03, 2019 23:00
--- NOTE | 2019-12-03 23:30 | Cardiology Progress Note ---
Subjective DATE OF SERVICE: Dec 03, 2019 On vent support Troponin trended down Multiple electrolyte abnormalities Renal function remains impaired, but urine output is adequate. Monitor: Sinus and sinus bradycardia. No pauses. Objective Last 24 Hour Vital Signs Date Time Temp Pulse Resp B/P (MAP) Pulse Ox O2 Delivery O2 Flow Rate FiO2 12/03/19 22:33 69 24 70 12/03/19 20:51 65 20 80 12/03/19 20:39 65 166/94 12/03/19 20:00 98.2 67 26 166/94 (118) 100 12/03/19 20:00 Mechanical Ventilator 12/03/19 19:50 70 12/03/19 19:10 67 20 80 12/03/19 17:10 157/96 12/03/19 17:04 65 21 100 12/03/19 16:00 72 12/03/19 16:00 100 12/03/19 16:00 97.7 66 21 157/96 (116) 100 12/03/19 16:00 Mechanical Ventilator 12/03/19 15:09 83 30 40 12/03/19 13:06 78 36 40 12/03/19 12:51 156/72 12/03/19 12:00 40 12/03/19 12:00 Mechanical Ventilator 12/03/19 11:41 63 12/03/19 11:30 98.2 66 20 156/72 (100) 99 12/03/19 10:57 63 24 40 12/03/19 09:14 65 152/65 12/03/19 09:10 152/65 12/03/19 08:48 65 22 40 12/03/19 08:00 40 12/03/19 08:00 Mechanical Ventilator 12/03/19 08:00 98.2 63 20 152/65 (94) 99 12/03/19 07:31 71 12/03/19 07:26 67 24 40 12/03/19 05:10 158/75 12/03/19 05:02 79 20 40 12/03/19 04:00 Mechanical Ventilator 12/03/19 04:00 40 12/03/19 04:00 98.2 78 18 167/77 (107) 100 12/03/19 03:30 72 12/03/19 03:13 71 20 40 12/03/19 01:08 68 20 40 12/02/19 23:56 98.5 61 20 164/83 (110) 100 12/02/19 23:52 40 12/02/19 23:51 Mechanical Ventilator 12/02/19 23:30 57 ROS: no changes from my prior evaluation 11/30/19 HEENT: Thin secretions ET Tube RHYTHM: ST LUNGS: bilateral rhonchi CARDIAC: normal rate, regular rhythm, normal S1 and S2 ABDOMEN: normal bowel sounds, G-Tube intact EXTREMITIES: +2 edema Laboratory Tests Test 12/03/19 04:30 12/03/19 13:24 12/03/19 18:15 12/03/19 21:00 White Blood Count 17.0 K/UL (4.8-10.8) H Red Blood Count 3.08 M/UL (4.20-5.40) L Hemoglobin 8.9 G/DL (12.0-16.0) L Hematocrit 25.8 % (37.0-47.0) L Mean Corpuscular Volume 84 FL (80-99) Mean Corpuscular Hemoglobin 28.9 PG (27.0-31.0) Mean Corpuscular Hemoglobin Concent 34.5 G/DL (32.0-36.0) Red Cell Distribution Width 13.5 % (11.6-14.8) Platelet Count 369 K/UL (150-450) Mean Platelet Volume 4.5 FL (6.5-10.1) L Neutrophils (%) (Auto) % (45.0-75.0) Lymphocytes (%) (Auto) % (20.0-45.0) Monocytes (%) (Auto) % (1.0-10.0) Eosinophils (%) (Auto) % (0.0-3.0) Basophils (%) (Auto) % (0.0-2.0) Differential Total Cells Counted 100 Neutrophils % (Manual) 85 % (45-75) H Lymphocytes % (Manual) 11 % (20-45) L Monocytes % (Manual) 4 % (1-10) Eosinophils % (Manual) 0 % (0-3) Basophils % (Manual) 0 % (0-2) Band Neutrophils 0 % (0-8) Platelet Estimate Adequate Platelet Morphology Normal Hypochromasia 1+ Anisocytosis 1+ Sodium Level 132 MMOL/L (136-145) L Potassium Level 3.9 MMOL/L (3.5-5.1) Chloride Level 98 MMOL/L (98-107) Carbon Dioxide Level 15 MMOL/L (21-32) L Blood Urea Nitrogen 132 mg/dL (7-18) H Creatinine 3.4 MG/DL (0.55-1.30) H Estimat Glomerular Filtration Rate 14.5 mL/min (>60) Glucose Level 94 MG/DL (74-106) Calcium Level 7.7 MG/DL (8.5-10.1) L Phosphorus Level 5.9 MG/DL (2.5-4.9) H Magnesium Level 3.1 MG/DL (1.8-2.4) H Total Bilirubin 0.3 MG/DL (0.2-1.0) Aspartate Amino Transf (AST/SGOT) 21 U/L (15-37) Alanine Aminotransferase (ALT/SGPT) 8 U/L (12-78) L Alkaline Phosphatase 139 U/L (46-116) H C-Reactive Protein, Quantitative 9.6 mg/dL (0.00-0.90) H Pro-B-Type Natriuretic Peptide > 75661 pg/mL (0-125) H Total Protein 6.2 G/DL (6.4-8.2) L Albumin 2.8 G/DL (3.4-5.0) L Globulin 3.4 g/dL Albumin/Globulin Ratio 0.8 (1.0-2.7) L Amylase Level 168 U/L (25-115) H Lipase 1072 U/L (73-393) H Arterial Blood pH 7.268 (7.350-7.450) 7.405 (7.350-7.450) Arterial Blood Partial Pressure CO2 32.1 mmHg (35.0-45.0) L 27.0 mmHg (35.0-45.0) L Arterial Blood Partial Pressure O2 106.2 mmHg (75.0-100.0) H 121.0 mmHg (75.0-100.0) H Arterial Blood HCO3 14.3 mmol/L (22.0-26.0) *L 16.5 mmol/L (22.0-26.0) *L Arterial Blood Oxygen Saturation 97.2 % (95-100) 98.2 % (95-100) Arterial Blood Base Excess -11.5 (-2-2) *L -7.1 (-2-2) L Rojas Test Positive Positive Random Gentamicin Level 6.1 ug/mL Assessment/Plan Assessment/Plan Respiratory failure Acute myocardial ischemia and possible NSTE myocardial infarction Ischemic cardiomyopathy - s/p CABG Hx AAA repair Paroxysmal AFib Pacemaker explant due to infection Decubitus sepsis Low lipid parameters Renal failure ac/chr Antimicrobials Anti-plt therapy Titrate beta flori - now stable on low dose regimen. Vent support Diuresis as able Await final blood culture results Deni Willams MD Dec 03, 2019 23:30
[2019-12-04] VITALS: BP 167/86
[2019-12-04] MEDS: Sodium Citrate 30ml GT SCH ×5 (00:32→23:47)
[2019-12-04] MEDS: HydrALAZINE 25mg tab GT SCH ×5 (00:32→23:47)
[2019-12-04] MEDS: Meropenem 500 MG in NS 55 ML IVPB SCH ×2 (02:48→15:33)
[2019-12-04 04:00] VITALS: BP 163/64
--- NOTE | 2019-12-04 06:40 | Hematology/Onc Progress Note ---
Assessment/Plan Assessment/Plan Assessment and Recs # Leukocytosis, now with uti, though in past has had pna, pacemaker site infection and bacteremia --> is s/p pm removal and also pocket infection is better --> per cards recs in re to tach/davis --> wbc 29-->16-->17 --> ABX vanc/angelo-->gent/angelo --> ID recs are noted # Anemia of chronic disease due to underlying chronic medical issues, multifactorial --> Anemia workup has been reviewed, cw acd --> No evidence of hemolysis is noted, peripheral smear has been reviewed. --> Hgb goal >7. Transfuse prn. --> Epogen started sq --> Medications have been reviewed --> low threshold for gi evaluation in case has occult + --> hgb 7.1-->7.8-->>>6.7->9.2-->8.9 --> 1 unit prbc10/17 --> gi eval as needed # Thrombocytois is likely reactive process, is s/p infection --> plt trend 358 --> p smear reviewed # Acute hypoxic respiratory failure s/p intubation 11/23- ?ARDS --> on vent/trach # JAVIER initially >2 --> on ivfs -> may need hd per Dr. Houston # Elevated d-dimer --> venous duplex and v/q scan neg --> negative results # Dysphagia s/p peg # Thoracic aortic dissection s/p repair early 2017 # Psychiatric history on ativan/haldol # [place] resident # Dvt ppx --> heparin sq The timing of this note does not necessarily reflect the time of the patient was seen. Greatly appreciate consultation. Subjective Allergies: Coded Allergies: No Known Allergies (Unverified , 10/10/17) All Systems: reviewed and negative except above Subjective 12/01 on vent, with gtube and raymond, no bleeding, labs are noted 12/02 labs noted, remains on abx, dw Rn at bedside is on abx, hgb 8.9 12/03 dw Rn in am, with drainage blood from gtube site, and mouth,gi aware Objective Objective Current Medications Medications (Trade) Dose Ordered Sig/Penny Route PRN Reason Start Time Stop Time Status Last Admin Dose Admin Acetaminophen (Tylenol) 650 mg Q4H PRN GT Temp >100.5 11/29/19 04:30 12/29/19 04:29 12/02/19 04:08 Acetaminophen/ Hydrocodone Bitart ([place] ) 1 tab Q4H PRN GT For moderate pain 11/29/19 15:30 12/06/19 15:29 Ascorbic Acid (Vitamin C) 500 mg DAILY GT 11/29/19 09:00 12/29/19 08:59 12/03/19 09:14 Clonidine HCl (Catapres TTS-1) 1 patch ONCE A WEEK TDERMAL 12/03/19 09:00 03/02/20 08:59 12/03/19 09:10 Clotrimazole (Lotrimin) 1 applic THREE TIMES A DAY TOPIC 12/01/19 13:00 02/29/20 12:59 12/03/19 17:11 Epoetin Gelacio (Epoetin Gelacio-EPBX(NON ESRD)) 10,000 unit MON-MON-MON SUBQ 11/29/19 21:00 02/27/20 20:59 12/02/19 20:30 Gentamicin Protocol (Gentamicin pharmacy to dose) 1 ea DAILY PRN MISC Per rx protocol 12/02/19 18:00 01/01/20 17:59 Heparin Sodium (Porcine) (Heparin 5000 units/ml) 5,000 units EVERY 12 HOURS SUBQ 11/29/19 09:00 01/13/20 08:59 12/01/19 20:58 Hydralazine HCl (Apresoline) 25 mg Q6HR GT 11/29/19 18:00 02/27/20 17:59 12/04/19 05:30 Hydromorphone HCl (Dilaudid) 2 mg Q12HR ORAL 12/03/19 09:00 12/10/19 21:59 Lansoprazole (Prevacid) 30 mg DAILY GT 12/01/19 12:00 12/31/19 11:59 12/03/19 09:13 Meropenem 500 mg/ Sodium Chloride 55 ml @ 110 mls/hr Q12H IVPB 11/29/19 15:00 12/06/19 14:59 12/04/19 02:48 Metoclopramide HCl (Reglan) 5 mg Q6HR GT 11/29/19 06:00 12/29/19 05:59 12/04/19 05:29 Metolazone (Zaroxolyn) 2.5 mg QHS GT 11/29/19 21:00 12/29/19 20:59 12/03/19 20:38 Metolazone (Zaroxolyn) 5 mg DAILY GT 11/29/19 09:00 12/29/19 08:59 12/03/19 09:13 Metoprolol Tartrate (Lopressor) 12.5 mg Q12HR ORAL 12/03/19 21:00 03/02/20 08:59 12/03/19 20:39 Polyethylene Glycol (Miralax) 17 gm BEDTIME GT 11/29/19 21:00 12/29/19 20:59 12/03/19 20:39 Sodium Bicarbonate 100 ml/Dextrose 1,100 ml @ 80 mls/hr [id number] IV 12/03/19 21:00 01/02/20 20:59 12/03/19 20:48 Sodium Citrate (Bicitra) 30 ml EVERY 6 HOURS GT 12/03/19 09:00 01/02/20 08:59 12/04/19 05:29 Vitamin B Complex/ Vit C/Folic Acid (Nephrovite) 1 tab DAILY GT 11/29/19 09:00 12/29/19 08:59 12/03/19 09:13 Zinc Sulfate (Zinc Sulfate) 220 mg DAILY GT 11/29/19 09:00 02/27/20 08:59 12/03/19 09:13 Last 24 Hour Vital Signs Date Time Temp Pulse Resp B/P (MAP) Pulse Ox O2 Delivery O2 Flow Rate FiO2 12/04/19 05:30 159/73 12/04/19 04:49 65 22 40 12/04/19 04:00 Mechanical Ventilator 12/04/19 04:00 100 12/04/19 04:00 98.8 64 22 163/64 (97) 100 12/04/19 04:00 70 12/04/19 03:10 68 25 40 12/04/19 00:34 65 20 60 12/04/19 00:32 174/88 12/04/19 00:00 100 12/04/19 00:00 Mechanical Ventilator 12/04/19 00:00 98.2 65 25 167/86 (113) 100 10/20/20 23:42 64 10/20/20 22:33 69 24 70 1020/20 20:51 65 20 80 1020/20 20:39 65 166/94 1020 20:00 98.2 67 26 166/94 (118) 100 1020/20 20:00 Mechanical Ventilator 12/03/19 19:50 70 1020 19:10 67 20 80 10 17:10 157/96 12/03/19 17:04 65 21 100 20 16:00 72 102020 16:00 100 20 16:00 97.7 66 21 157/96 (116) 100 12/03/19 16:00 Mechanical Ventilator 12/03/19 15:09 83 30 40 12/03/19 13:06 78 36 40 12/03/19 12:51 156/72 12/03/19 12:00 40 12/03/19 12:00 Mechanical Ventilator 12/03/19 11:41 63 12/03/19 11:30 98.2 66 20 156/72 (100) 99 12/03/19 10:57 63 24 40 12/03/19 09:14 65 152/65 12/03/19 09:10 152/65 12/03/19 08:48 65 22 40 12/03/19 08:00 40 12/03/19 08:00 Mechanical Ventilator 12/03/19 08:00 98.2 63 20 152/65 (94) 99 12/03/19 07:31 71 12/03/19 07:26 67 24 40 12/03/19 05:10 158/75 1020 05:02 79 20 40 1020/20 04:00 Mechanical Ventilator 12/03/19 04:00 40 12/02/20 04:00 98.2 78 18 167/77 (107) 100 12/03/19 03:30 72 12/03/19 03:13 71 20 40 1020 01:08 68 20 40 10/20 23:56 98.5 61 20 164/83 (110) 100 12/02/19 23:52 40 12/02/19 23:51 Mechanical Ventilator 12/02/19 23:30 57 12/02/19 23:11 165/72 12/02/19 22:51 55 20 40 12/02/19 21:02 54 20 40 12/02/19 20:24 62 151/63 12/02/19 20:00 Mechanical Ventilator 12/02/19 20:00 40 12/02/19 20:00 98.1 62 22 151/63 (92) 100 12/02/19 19:30 59 20 40 12/02/19 19:03 63 12/02/19 17:47 151/61 12/02/19 17:30 57 20 40 12/02/19 16:00 40 12/02/19 16:00 Mechanical Ventilator 12/02/19 16:00 97.0 55 20 151/61 (91) 100 12/02/19 16:00 48 12/02/19 16:00 40 12/02/19 15:08 55 20 40 12/02/19 13:23 59 20 40 12/02/19 12:26 131/59 12/02/19 12:00 Mechanical Ventilator 12/02/19 12:00 97.3 61 20 131/59 (83) 100 12/02/19 12:00 50 12/02/19 12:00 40 12/02/19 11:02 61 20 40 12/02/19 09:11 59 20 40 12/02/19 08:57 55 137/59 12/02/19 08:00 40 12/02/19 08:00 Mechanical Ventilator 12/02/19 08:00 40 12/02/19 08:00 58 12/02/19 08:00 58 12/02/19 08:00 98.4 58 20 137/59 (85) 100 12/02/19 08:00 98.4 61 22 137/58 (84) 99 12/02/19 07:06 56 20 40 Intake and Output 12/03/19 12/04/19 19:00 07:00 Intake Total 335 ml 1246 ml Output Total 600 ml Balance -265 ml 1246 ml Intake Free Water 40 ml 40 ml IV Total 55 ml 766 ml Tube Feeding 240 ml 440 ml Output Urine Total 600 ml Labs Test 12/01/19 07:25 12/01/19 08:50 12/01/19 10:04 12/01/19 12:21 White Blood Count 16.5 K/UL (4.8-10.8) Red Blood Count 2.92 M/UL (4.20-5.40) Hemoglobin 8.4 G/DL (12.0-16.0) Hematocrit 24.6 % (37.0-47.0) Mean Corpuscular Volume 84 FL (80-99) Mean Corpuscular Hemoglobin 28.9 PG (27.0-31.0) Mean Corpuscular Hemoglobin Concent 34.4 G/DL (32.0-36.0) Red Cell Distribution Width 13.7 % (11.6-14.8) Platelet Count 328 K/UL (150-450) Mean Platelet Volume 4.4 FL (6.5-10.1) Neutrophils (%) (Auto) % (45.0-75.0) Lymphocytes (%) (Auto) % (20.0-45.0) Monocytes (%) (Auto) % (1.0-10.0) Eosinophils (%) (Auto) % (0.0-3.0) Basophils (%) (Auto) % (0.0-2.0) Differential Total Cells Counted 100 Neutrophils % (Manual) 88 % (45-75) Lymphocytes % (Manual) 10 % (20-45) Monocytes % (Manual) 2 % (1-10) Eosinophils % (Manual) 0 % (0-3) Basophils % (Manual) 0 % (0-2) Band Neutrophils 0 % (0-8) Platelet Estimate Adequate Platelet Morphology Normal Hypochromasia 1+ Erythrocyte Sedimentation Rate 28 MM/HR (0-20) Prothrombin Time 19.5 SEC (9.30-11.50) Prothromb Time International Ratio 1.9 (0.9-1.1) Activated Partial Thromboplast Time 33 SEC (23-33) Sodium Level 130 MMOL/L (136-145) Potassium Level 3.6 MMOL/L (3.5-5.1) Chloride Level 98 MMOL/L (98-107) Carbon Dioxide Level 15 MMOL/L (21-32) Anion Gap 17 mmol/L (5-15) Blood Urea Nitrogen 127 mg/dL (7-18) Creatinine 3.2 MG/DL (0.55-1.30) Estimat Glomerular Filtration Rate 15.5 mL/min (>60) Glucose Level 130 MG/DL (74-106) Uric Acid 7.7 MG/DL (2.6-7.2) Calcium Level 7.9 MG/DL (8.5-10.1) Phosphorus Level 5.2 MG/DL (2.5-4.9) Magnesium Level 3.2 MG/DL (1.8-2.4) Total Bilirubin 0.4 MG/DL (0.2-1.0) Aspartate Amino Transf (AST/SGOT) 20 U/L (15-37) Alanine Aminotransferase (ALT/SGPT) 10 U/L (12-78) Alkaline Phosphatase 120 U/L (46-116) Troponin I 0.121 ng/mL (0.000-0.056) C-Reactive Protein, Quantitative 5.8 mg/dL (0.00-0.90) Total Protein 6.7 G/DL (6.4-8.2) Albumin 3.3 G/DL (3.4-5.0) Globulin 3.4 g/dL Albumin/Globulin Ratio 1.0 (1.0-2.7) Triglycerides Level 23 MG/DL (30-150) Cholesterol Level 51 MG/DL (< 200) LDL Cholesterol 29 mg/dL (<100) HDL Cholesterol 21 MG/DL (40-60) Cholesterol/HDL Ratio 2.4 (3.3-4.4) Amylase Level 188 U/L (25-115) Lipase 1415 U/L (73-393) CA 19-9 Antigen 69 U/mL (0-35) POC Whole Blood Glucose 114 MG/DL (74-106) Test 12/01/19 17:54 12/02/19 02:59 12/02/19 07:39 12/02/19 12:25 White Blood Count 15.7 K/UL (4.8-10.8) Red Blood Count 3.24 M/UL (4.20-5.40) Hemoglobin 9.2 G/DL (12.0-16.0) Hematocrit 27.3 % (37.0-47.0) Mean Corpuscular Volume 84 FL (80-99) Mean Corpuscular Hemoglobin 28.5 PG (27.0-31.0) Mean Corpuscular Hemoglobin Concent 33.9 G/DL (32.0-36.0) Red Cell Distribution Width 14.0 % (11.6-14.8) Platelet Count 358 K/UL (150-450) Mean Platelet Volume 4.7 FL (6.5-10.1) Neutrophils (%) (Auto) 84.4 % (45.0-75.0) Lymphocytes (%) (Auto) 8.9 % (20.0-45.0) Monocytes (%) (Auto) 4.2 % (1.0-10.0) Eosinophils (%) (Auto) 2.2 % (0.0-3.0) Basophils (%) (Auto) 0.3 % (0.0-2.0) Sodium Level 134 MMOL/L (136-145) Potassium Level 3.9 MMOL/L (3.5-5.1) Chloride Level 99 MMOL/L (98-107) Carbon Dioxide Level 15 MMOL/L (21-32) Blood Urea Nitrogen 134 mg/dL (7-18) Creatinine 3.4 MG/DL (0.55-1.30) Estimat Glomerular Filtration Rate 14.5 mL/min (>60) Glucose Level 86 MG/DL (74-106) Uric Acid 7.8 MG/DL (2.6-7.2) Calcium Level 8.0 MG/DL (8.5-10.1) Phosphorus Level 5.6 MG/DL (2.5-4.9) Magnesium Level 3.2 MG/DL (1.8-2.4) Total Bilirubin 0.4 MG/DL (0.2-1.0) Aspartate Amino Transf (AST/SGOT) 22 U/L (15-37) Alanine Aminotransferase (ALT/SGPT) < 6 U/L (12-78) Alkaline Phosphatase 131 U/L (46-116) Troponin I 0.077 ng/mL (0.000-0.056) C-Reactive Protein, Quantitative 7.6 mg/dL (0.00-0.90) Pro-B-Type Natriuretic Peptide > 91654 pg/mL (0-125) Total Protein 6.1 G/DL (6.4-8.2) Albumin 3.0 G/DL (3.4-5.0) Globulin 3.1 g/dL Albumin/Globulin Ratio 1.0 (1.0-2.7) Amylase Level 187 U/L (25-115) Lipase 1270 U/L (73-393) Random Vancomycin Level 19.1 ug/mL POC Whole Blood Glucose 80 MG/DL (74-106) Test 12/02/19 17:56 12/03/19 04:30 12/03/19 13:24 12/03/19 18:15 White Blood Count 17.0 K/UL (4.8-10.8) Red Blood Count 3.08 M/UL (4.20-5.40) Hemoglobin 8.9 G/DL (12.0-16.0) Hematocrit 25.8 % (37.0-47.0) Mean Corpuscular Volume 84 FL (80-99) Mean Corpuscular Hemoglobin 28.9 PG (27.0-31.0) Mean Corpuscular Hemoglobin Concent 34.5 G/DL (32.0-36.0) Red Cell Distribution Width 13.5 % (11.6-14.8) Platelet Count 369 K/UL (150-450) Mean Platelet Volume 4.5 FL (6.5-10.1) Neutrophils (%) (Auto) % (45.0-75.0) Lymphocytes (%) (Auto) % (20.0-45.0) Monocytes (%) (Auto) % (1.0-10.0) Eosinophils (%) (Auto) % (0.0-3.0) Basophils (%) (Auto) % (0.0-2.0) Differential Total Cells Counted 100 Neutrophils % (Manual) 85 % (45-75) Lymphocytes % (Manual) 11 % (20-45) Monocytes % (Manual) 4 % (1-10) Eosinophils % (Manual) 0 % (0-3) Basophils % (Manual) 0 % (0-2) Band Neutrophils 0 % (0-8) Platelet Estimate Adequate Platelet Morphology Normal Hypochromasia 1+ Anisocytosis 1+ Sodium Level 132 MMOL/L (136-145) Potassium Level 3.9 MMOL/L (3.5-5.1) Chloride Level 98 MMOL/L (98-107) Carbon Dioxide Level 15 MMOL/L (21-32) Blood Urea Nitrogen 132 mg/dL (7-18) Creatinine 3.4 MG/DL (0.55-1.30) Estimat Glomerular Filtration Rate 14.5 mL/min (>60) Glucose Level 94 MG/DL (74-106) Calcium Level 7.7 MG/DL (8.5-10.1) Phosphorus Level 5.9 MG/DL (2.5-4.9) Magnesium Level 3.1 MG/DL (1.8-2.4) Total Bilirubin 0.3 MG/DL (0.2-1.0) Aspartate Amino Transf (AST/SGOT) 21 U/L (15-37) Alanine Aminotransferase (ALT/SGPT) 8 U/L (12-78) Alkaline Phosphatase 139 U/L (46-116) C-Reactive Protein, Quantitative 9.6 mg/dL (0.00-0.90) Pro-B-Type Natriuretic Peptide > 38960 pg/mL (0-125) Total Protein 6.2 G/DL (6.4-8.2) Albumin 2.8 G/DL (3.4-5.0) Globulin 3.4 g/dL Albumin/Globulin Ratio 0.8 (1.0-2.7) Amylase Level 168 U/L (25-115) Lipase 1072 U/L (73-393) Arterial Blood pH 7.268 (7.350-7.450) Arterial Blood Partial Pressure CO2 32.1 mmHg (35.0-45.0) Arterial Blood Partial Pressure O2 106.2 mmHg (75.0-100.0) Arterial Blood HCO3 14.3 mmol/L (22.0-26.0) Arterial Blood Oxygen Saturation 97.2 % (95-100) Arterial Blood Base Excess -11.5 (-2-2) Rojas Test Positive Random Gentamicin Level 6.1 ug/mL Test 12/03/19 21:00 12/04/19 04:00 Arterial Blood pH 7.405 (7.350-7.450) Arterial Blood Partial Pressure CO2 27.0 mmHg (35.0-45.0) Arterial Blood Partial Pressure O2 121.0 mmHg (75.0-100.0) Arterial Blood HCO3 16.5 mmol/L (22.0-26.0) Arterial Blood Oxygen Saturation 98.2 % (95-100) Arterial Blood Base Excess -7.1 (-2-2) Rojas Test Positive Height (Feet): 5 Height (Inches): 4.00 Weight (Pounds): 150 Objective Physical Exam: Vitals: reviewed General: NAD HEENT: nc, at Neck: supple ++tracn/vent Chest: clear breath sounds bilaterally Cardiovascular: RRR, no s3, s4 Abdomen: soft, nontender, nd +gtube Extremities: no cce, normal range of motion Neuro: alert ++Evan Molina MD Dec 04, 2019 06:40
[2019-12-04 08:00] VITALS: BP 153/68
[2019-12-04] MEDS: Heparin 5000 units/ml inj SUBQ SCH ×2 (09:00→20:34)
[2019-12-04] MEDS: HYDROmorphone 2mg tab ORAL SCH ×2 (09:00→20:33)
[2019-12-04] MEDS: Ascorbic Acid 500mg tab GT SCH (09:24)
[2019-12-04] MEDS: Nephrovite tab (Rena-Vite) GT SCH (09:24)
[2019-12-04] MEDS: Metoprolol Tartrate 12.5mg TAB ORAL SCH ×2 (09:24→20:33)
[2019-12-04] MEDS: Zinc Sulfate 220mg GT SCH (09:24)
--- NOTE | 2019-12-04 09:38 | General Progress Note ---
Subjective ROS Limited/Unobtainable: No Allergies: Coded Allergies: No Known Allergies (Unverified , 10/10/17) Objective Last 24 Hour Vital Signs Date Time Temp Pulse Resp B/P (MAP) Pulse Ox O2 Delivery O2 Flow Rate FiO2 12/04/19 09:24 62 153/68 12/04/19 08:00 97.5 62 21 153/68 (96) 99 12/04/19 08:00 100 12/04/19 07:38 66 12/04/19 07:10 97 21 40 12/04/19 05:30 159/73 12/04/19 04:49 65 22 40 12/04/19 04:00 Mechanical Ventilator 12/04/19 04:00 100 12/04/19 04:00 98.8 64 22 163/64 (97) 100 12/04/19 04:00 70 12/04/19 03:10 68 25 40 12/04/19 00:34 65 20 60 12/04/19 00:32 174/88 12/04/19 00:00 100 12/04/19 00:00 Mechanical Ventilator 12/04/19 00:00 98.2 65 25 167/86 (113) 100 12/03/19 23:42 64 12/03/19 22:33 69 24 70 12/03/19 20:51 65 20 80 12/03/19 20:39 65 166/94 12/03/19 20:00 98.2 67 26 166/94 (118) 100 12/03/19 20:00 Mechanical Ventilator 12/03/19 19:50 70 12/03/19 19:10 67 20 80 12/03/19 17:10 157/96 12/03/19 17:04 65 21 100 12/03/19 16:00 72 12/03/19 16:00 100 12/03/19 16:00 97.7 66 21 157/96 (116) 100 12/03/19 16:00 Mechanical Ventilator 12/03/19 15:09 83 30 40 12/03/19 13:06 78 36 40 12/03/19 12:51 156/72 12/03/19 12:00 40 12/03/19 12:00 Mechanical Ventilator 12/03/19 11:41 63 12/03/19 11:30 98.2 66 20 156/72 (100) 99 12/03/19 10:57 63 24 40 Intake and Output 12/03/19 12/04/19 19:00 07:00 Intake Total 335 ml 1246 ml Output Total 600 ml Balance -265 ml 1246 ml Intake Free Water 40 ml 40 ml IV Total 55 ml 766 ml Tube Feeding 240 ml 440 ml Output Urine Total 600 ml Laboratory Tests 12/03/19 13:24: Arterial Blood pH 7.268L, Arterial Blood Partial Pressure CO2 32.1L, Arterial Blood Partial Pressure O2 106.2H, Arterial Blood HCO3 14.3*L, Arterial Blood Oxygen Saturation 97.2, Arterial Blood Base Excess -11.5*L, Rojas Test Positive 12/03/19 18:15: Random Gentamicin Level 6.1 12/03/19 21:00: Arterial Blood pH 7.405, Arterial Blood Partial Pressure CO2 27.0L, Arterial Blood Partial Pressure O2 121.0H, Arterial Blood HCO3 16.5*L, Arterial Blood Oxygen Saturation 98.2, Arterial Blood Base Excess -7.1L, Rojas Test Positive 12/04/19 04:00: Stool Occult Blood [Pending] Height (Feet): 5 Height (Inches): 4.00 Weight (Pounds): 150 General Appearance: lethargic EENT: PERRL/EOMI Neck: supple Cardiovascular: normal rate Respiratory/Chest: decreased breath sounds Abdomen: normal bowel sounds, non tender, soft Extremities: non-tender Assessment/Plan Assessment/Plan: 1. Coronary artery disease with history of CABG. 2. Respiratory failure with history of tracheotomy. 3. Prior history of bacteremia. 4. History of prior pacemaker, status post explantation due to endovascular infection. 5. Chronic kidney disease. 6. Anemia of chronic kidney disease. 7. History of substance abuse. 8. Hyperlipidemia. 9. dysphagia with GT 10. Vitamin D deficiency. 11. History of aortic dissection and repair in 2018. 12. Paroxysmal atrial fibrillation. 13. Gastroesophageal reflux disease. 14. prei Gt cellulitis 15. pancreatitis repeat labs changed the GT to 22 Fr at the bedside yesterday>>> improved leakage but not completely resolvrd\ add reglan may need GJT s/p blood transfusion fu stool ob ppi diogenes GT wound care fu CT Inder Mccauley MD Dec 04, 2019 09:38
--- NOTE | 2019-12-04 10:06 | Nephrology Progress Note ---
Assessment/Plan Problem List: (1) JAVIER (acute kidney injury) (2) Renal failure (ARF), acute on chronic (3) Feeding by G-tube (4) Tracheostomy in place (5) Electrolyte imbalance (6) Anemia (7) Respiratory failure, acute and chronic (8) Elevated lipase Assessment Patient is presented with sepsis and pneumonia and UTI, hypoxia Patient has acute renal failure, possible underlying chronic kidney failure Severe anemia Electrolyte imbalances: Hyponatremia, hypo-kalemia Chronic respiratory failure, COPD exacerbation Has sacral decubitus ulcer stage IV PEG Plan December 03: No chemistry panel done today. Appears clinically stable. Will order renal parameters and lipase panel for tomorrow. Continue per consultants. Patient remains full code. December 02: Labs reviewed. Serum lipase decreasing. On 20 cc an hour Nepro via GT tube. Renal parameters unchanged. Urine output well maintained. Continue per consultants. White blood cells 17,000, hemoglobin 8.9. December 01: Lab reviewed. Hemoglobin higher. Serum creatinine 3.4. Creatinine clearance calculated . Serum lipase lowering. Continue per current management. November 30: Patient transfused. Hemoglobin higher. Serum sodium lower. Renal parameters unchanged. Trial of 3% saline. Continue monitor renal parameters. May require dialysis treatment depending on the how her condition evolves. Previously Consider transfusion Urine studies Adjust blood pressure medication Albumin bolus Norman catheter, intake and output Monitor renal parameters Avoid nephrotoxic's Antibiotics Per orders Subjective ROS Limited/Unobtainable: Yes Objective Objective Last 24 Hour Vital Signs Date Time Temp Pulse Resp B/P (MAP) Pulse Ox O2 Delivery O2 Flow Rate FiO2 12/04/19 09:24 62 153/68 12/04/19 09:00 61 20 40 12/04/19 08:00 97.5 62 21 153/68 (96) 99 12/04/19 08:00 100 12/04/19 07:38 66 12/04/19 07:10 97 21 40 12/04/19 05:30 159/73 12/04/19 04:49 65 22 40 12/04/19 04:00 Mechanical Ventilator 12/04/19 04:00 100 12/04/19 04:00 98.8 64 22 163/64 (97) 100 12/04/19 04:00 70 12/04/19 03:10 68 25 40 12/04/19 00:34 65 20 60 12/04/19 00:32 174/88 12/04/19 00:00 100 12/04/19 00:00 Mechanical Ventilator 12/04/19 00:00 98.2 65 25 167/86 (113) 100 12/03/19 23:42 64 12/03/19 22:33 69 24 70 12/03/19 20:51 65 20 80 12/03/19 20:39 65 166/94 12/03/19 20:00 98.2 67 26 166/94 (118) 100 12/03/19 20:00 Mechanical Ventilator 12/03/19 19:50 70 12/03/19 19:10 67 20 80 12/03/19 17:10 157/96 12/03/19 17:04 65 21 100 12/03/19 16:00 72 12/03/19 16:00 100 12/03/19 16:00 97.7 66 21 157/96 (116) 100 12/03/19 16:00 Mechanical Ventilator 12/03/19 15:09 83 30 40 12/03/19 13:06 78 36 40 12/03/19 12:51 156/72 12/03/19 12:00 40 12/03/19 12:00 Mechanical Ventilator 12/03/19 11:41 63 12/03/19 11:30 98.2 66 20 156/72 (100) 99 12/03/19 10:57 63 24 40 Intake and Output 12/03/19 12/04/19 19:00 07:00 Intake Total 335 ml 1246 ml Output Total 600 ml Balance -265 ml 1246 ml Intake Free Water 40 ml 40 ml IV Total 55 ml 766 ml Tube Feeding 240 ml 440 ml Output Urine Total 600 ml Laboratory Tests 12/03/19 13:24: Arterial Blood pH 7.268L, Arterial Blood Partial Pressure CO2 32.1L, Arterial Blood Partial Pressure O2 106.2H, Arterial Blood HCO3 14.3*L, Arterial Blood Ox ygen Saturation 97.2, Arterial Blood Base Excess -11.5*L, Rojas Test Positive 12/03/19 18:15: Random Gentamicin Level 6.1 12/03/19 21:00: Arterial Blood pH 7.405, Arterial Blood Partial Pressure CO2 27.0L, Arterial Blood Partial Pressure O2 121.0H, Arterial Blood HCO3 16.5*L, Arterial Blood Oxygen Saturation 98.2, Arterial Blood Base Excess -7.1L, Rojas Test Positive 12/04/19 04:00: Stool Occult Blood [Pending] Height (Feet): 5 Height (Inches): 4.00 Weight (Pounds): 150 General Appearance: no apparent distress, lethargic EENT: other - Trach to vent Cardiovascular: normal rate Respiratory/Chest: decreased breath sounds Abdomen: distended Johnny Houston MD Dec 04, 2019 10:06
--- NOTE | 2019-12-04 10:54 | Pulmonology Progress Note ---
Subjective ROS Limited/Unobtainable: Yes Interval Events: None new Constitutional: Reports: no symptoms HEENT: Repors: no symptoms Respiratory: Reports: no symptoms Cardiovascular: Reports: no symptoms Gastrointestinal/Abdominal: Reports: no symptoms Allergies: Coded Allergies: No Known Allergies (Unverified , 10/10/17) All Systems: reviewed and negative except above Objective Last 24 Hour Vital Signs Date Time Temp Pulse Resp B/P (MAP) Pulse Ox O2 Delivery O2 Flow Rate FiO2 12/04/19 09:24 62 153/68 12/04/19 09:00 61 20 40 12/04/19 08:00 97.5 62 21 153/68 (96) 99 12/04/19 08:00 100 12/04/19 07:38 66 12/04/19 07:10 97 21 40 12/04/19 05:30 159/73 12/04/19 04:49 65 22 40 12/04/19 04:00 Mechanical Ventilator 12/04/19 04:00 100 12/04/19 04:00 98.8 64 22 163/64 (97) 100 12/04/19 04:00 70 12/04/19 03:10 68 25 40 12/04/19 00:34 65 20 60 12/04/19 00:32 174/88 12/04/19 00:00 100 12/04/19 00:00 Mechanical Ventilator 12/04/19 00:00 98.2 65 25 167/86 (113) 100 12/03/19 23:42 64 12/03/19 22:33 69 24 70 12/03/19 20:51 65 20 80 12/03/19 20:39 65 166/94 12/03/19 20:00 98.2 67 26 166/94 (118) 100 12/03/19 20:00 Mechanical Ventilator 12/03/19 19:50 70 12/03/19 19:10 67 20 80 12/03/19 17:10 157/96 12/03/19 17:04 65 21 100 12/03/19 16:00 72 12/03/19 16:00 100 12/03/19 16:00 97.7 66 21 157/96 (116) 100 12/03/19 16:00 Mechanical Ventilator 12/03/19 15:09 83 30 40 12/03/19 13:06 78 36 40 12/03/19 12:51 156/72 12/03/19 12:00 40 12/03/19 12:00 Mechanical Ventilator 12/03/19 11:41 63 12/03/19 11:30 98.2 66 20 156/72 (100) 99 12/03/19 10:57 63 24 40 Intake and Output 12/03/19 12/04/19 19:00 07:00 Intake Total 335 ml 1246 ml Output Total 600 ml Balance -265 ml 1246 ml Intake Free Water 40 ml 40 ml IV Total 55 ml 766 ml Tube Feeding 240 ml 440 ml Output Urine Total 600 ml General Appearance: no acute distress HEENT: normocephalic, status post trach Respiratory: chest wall non-tender, lungs clear Cardiovascular: normal peripheral pulses Abdomen: normal bowel sounds Laboratory Tests 12/03/19 13:24: Arterial Blood pH 7.268L, Arterial Blood Partial Pressure CO2 32.1L, Arterial Blood Partial Pressure O2 106.2H, Arterial Blood HCO3 14.3*L, Arterial Blood Oxygen Saturation 97.2, Arterial Blood Base Excess -11.5*L, Rojas Test Positive 12/03/19 18:15: Random Gentamicin Level 6.1 12/03/19 21:00: Arterial Blood pH 7.405, Arterial Blood Partial Pressure CO2 27.0L, Arterial Blood Partial Pressure O2 121.0H, Arterial Blood HCO3 16.5*L, Arterial Blood Oxygen Saturation 98.2, Arterial Blood Base Excess -7.1L, Rojas Test Positive 12/04/19 04:00: Stool Occult Blood [Pending] Current Medications Medications (Trade) Dose Ordered Sig/Penny Route PRN Reason Start Time Stop Time Status Last Admin Dose Admin Acetaminophen (Tylenol) 650 mg Q4H PRN GT Temp >100.5 11/29/19 04:30 12/29/19 04:29 12/02/19 04:08 Acetaminophen/ Hydrocodone Bitart ([place] 10) 1 tab Q4H PRN GT For moderate pain 11/29/19 15:30 12/06/19 15:29 Ascorbic Acid (Vitamin C) 500 mg DAILY GT 11/29/19 09:00 12/29/19 08:59 12/04/19 09:24 Clonidine HCl (Catapres TTS-1) 1 patch ONCE A WEEK TDERMAL 12/03/19 09:00 03/02/20 08:59 12/03/19 09:10 Clotrimazole (Lotrimin) 1 applic THREE TIMES A DAY TOPIC 12/01/19 13:00 02/29/20 12:59 12/04/19 09:24 Epoetin Gelacio (Epoetin Gelacio-EPBX(NON ESRD)) 10,000 unit MON-WED-MON SUBQ 11/29/19 21:00 02/27/20 20:59 12/02/19 20:30 Gentamicin Protocol (Gentamicin pharmacy to dose) 1 ea DAILY PRN MISC Per rx protocol 12/02/19 18:00 01/01/20 17:59 Heparin Sodium (Porcine) (Heparin 5000 units/ml) 5,000 units EVERY 12 HOURS SUBQ 11/29/19 09:00 01/13/20 08:59 12/01/19 20:58 Hydralazine HCl (Apresoline) 25 mg Q6HR GT 11/29/19 18:00 02/27/20 17:59 12/04/19 05:30 Hydromorphone HCl (Dilaudid) 2 mg Q12HR ORAL 12/03/19 09:00 12/10/19 21:59 Lansoprazole (Prevacid) 30 mg DAILY GT 12/01/19 12:00 12/31/19 11:59 12/04/19 09:23 Meropenem 500 mg/ Sodium Chloride 55 ml @ 110 mls/hr Q12H IVPB 11/29/19 15:00 12/06/19 14:59 12/04/19 02:48 Metoclopramide HCl (Reglan) 5 mg Q6HR GT 11/29/19 06:00 12/29/19 05:59 12/04/19 05:29 Metoclopramide HCl (Reglan) 10 mg Q6H IVP 12/04/19 10:00 01/03/20 09:59 Metolazone (Zaroxolyn) 2.5 mg QHS GT 11/29/19 21:00 12/29/19 20:59 12/03/19 20:38 Metolazone (Zaroxolyn) 5 mg DAILY GT 11/29/19 09:00 12/29/19 08:59 12/04/19 09:23 Metoprolol Tartrate (Lopressor) 12.5 mg Q12HR ORAL 12/03/19 21:00 03/02/20 08:59 12/04/19 09:24 Polyethylene Glycol (Miralax) 17 gm BEDTIME GT 11/29/19 21:00 12/29/19 20:59 12/03/19 20:39 Sodium Bicarbonate 100 ml/Dextrose 1,100 ml @ 80 mls/hr [id number] IV 12/03/19 21:00 01/02/20 20:59 12/03/19 20:48 Sodium Citrate (Bicitra) 30 ml EVERY 6 HOURS GT 12/03/19 09:00 01/02/20 08:59 12/04/19 05:29 Vitamin B Complex/ Vit C/Folic Acid (Nephrovite) 1 tab DAILY GT 11/29/19 09:00 12/29/19 08:59 12/04/19 09:24 Zinc Sulfate (Zinc Sulfate) 220 mg DAILY GT 11/29/19 09:00 02/27/20 08:59 12/04/19 09:24 Assessment/Plan Assessment/Plan Assessment: COVID19 neg x1 Sepsis U TI Pl effusion PNA Low grade fever Leukocytosis, Acute on chronic hypoxic resp failure JAVIER on CKD- hx of Recent MDR PnA, sp rx H/o PPM site (pocket) infection and pocket abscess 2ry to S. epi-11/2018, sp >6weeks IV vancomycin CAD s/p CABG GERD/gastritis Afib HTN Dysphagia sp GT Aortic dissection s/p repair 2017, S/p PPM Parkinson's Disease Schizophrenia Anxiety COPD Chronic resp failure s/p trach Hx of tracheal bleeding [place] resident ([facility]) Plan: -Continue empiric abx -Monitor CBC/CMP, temperatures -PEG/trach care -aspiration precautions -COVID19 isolation and testing; -s/p thoracentesis- sent fluid analysis and culture - Will wean FiO2 down; currently on 40% FiO2 Elijah Stephen MD Dec 04, 2019 10:54
[2019-12-04] MEDS: Metoclopramide 10mg/2ml Inj IVP SCH ×3 (10:56→23:00)
[2019-12-04] MEDS: Sodium Bicarbonate 100 ML in D5W 1000ml 1,000 ML IV SCH ×2 (10:57→23:48)
[2019-12-04 12:00] VITALS: BP 154/74
--- NOTE | 2019-12-04 12:38 | Infectious Diseases Prog Note ---
Assessment/Plan Assessment: COVID19 neg x2 (11/27 & rapid COVID PCR neg) Sepsis U TI -11/27 u/a wbc 30-40, nit neg, leuk +3; ucx ESBL P. mirablis, ESBL M. morganii Pl effusion, transudate - 11/28 Sp [place] (w: 169, PMN: 2%, L: 49% , LDH: 57, prot 2.5); cx NTD PNA -11/28 CXR: Resolved right pleural effusion, status post thoracentesis. No radiographically evident complication Sp cx ESBL P. mirablis (S Meropenem, Zosyn), MDR PsA (S Gentamycin) Influenza ag neg -11/27 CXR: Increasing hazy right lung diffuse opacity. Suspect at least in part due to overlying soft tissue, but developing infiltrate also possible. Persistent and slightly increased left retrocardiac consolidation and slightly increased left pleural effusion -11/27 Bcx NTD Fever , SP Leukocytosis, persistent -12/02 CT abd/p wo: Study substantially limited due to lack of IV contrast and severe anasarca and moderate nonloculated ascites. Left nephroureteral stent in the decompressed left, atrophic renal collecting system. No evident urolithiasis. Incompletely evaluated chronic aortic dissection not well seen on this study due to lack of IV contrast and severe anasarca. Bilateral moderate low-attenuation, partially loculated pleural effusions with extensive passive atelectasis; correlate to exclude superimposed aspiration or pneumonia.Percutaneous gastrostomy tube. Norman catheter in decompressed urinary bladder. Likely chronic appearing right intertrochanteric hip fracture. Possible sacral decubitus ulcer, recommend direct visualization. Acute on chronic hypoxic resp failure JAVIER on CKD; improving- on previous admission Sep-Oct 2019 required HD for short period hx of Recent MDR PnA, sp rx 10/15/19 sp cx ESBL P. mirabilis, MDR P.a. ( S only to Gent) 09/22 Resp cx + MDR PsA (S-gent; I-colistin; R-levofloxacin, Zosyn, angelo) 09/16/19 Sp cx ESBL P. mirablis hx of recent UTI 09/15/19 u/a wbc tnct, nit neg, leuk +3; ucx >100k MDR P. stuarti (S Ceftriaxone, Meropenem) 10/07 u/a wbc tnct, nit neg, leuk ; ucx >100k VRE 10/15/19 u/a wbc tnct; ucx >100k ESBL P. stuarti (S ertapenem, aztreonam) H/o PPM site (pocket) infection and pocket abscess 2ry to S. epi-11/2018, sp >6weeks IV vancomycin 11/27 SP ABBIE: no evidence for vegetation on any of the valves 11/26/18 SP PPM removal: OR findings:The fibrous capsule enclosing the generator was then opened and there was a [id number] amount of yellowish fluid drainage. The generator was then removed.Atrial and ventricular leads were detached. The necrotic tissue of the pocket was then removed and the pocket was flushed with an antibiotic solution. Capsule, wound tissue and lead tip cx: Neg 2d echo: no vegetation seen US chest: 4.6 x 3.4 x 0.9 cm hypoechoic/anechoic area overlying left chest pacemaker power pack. This could represent either a discrete fluid collection or a focal area of very edematous tissue. Infected fluid pocket also possible. 11/18 Bcx 3/4 S. epi; 11/20 Bcx neg; 11/24 Bcx Neg; 11/27 Bcx Neg CAD s/p CABG GERD/gastritis Afib HTN Dysphagia sp GT Aortic dissection s/p repair 2017, S/p PPM Parkinson's Disease Schizophrenia Anxiety COPD Chronic resp failure s/p trach Hx of tracheal bleeding [place] resident ([facility]) VRE and MRSA colonized Plan: -Meropenem # 6/7-10 and IV Gentamycin #3/7 for MDR PsA -12/01 SP IV Vancomycin #5 - 11/28 Sp Cefepime #2 and IV Gentamycin x1 -f/u cx -Monitor CBC/CMP, temperatures -f/u legionella ag urine -PEG/trach care -aspiration precautions -COVID19 neg x2 Subjective Allergies: Coded Allergies: No Known Allergies (Unverified , 10/10/17) afebrile >48hrs wbc remains bt 15-17; no cbc today FIo2 100% Bcx NTD Objective Last 24 Hour Vital Signs Date Time Temp Pulse Resp B/P (MAP) Pulse Ox O2 Delivery O2 Flow Rate FiO2 12/04/19 12:29 154/74 12/04/19 12:00 97.3 65 24 154/74 (100) 98 12/04/19 12:00 100 12/04/19 11:10 59 20 40 12/04/19 09:24 62 153/68 12/04/19 09:00 61 20 40 12/04/19 08:00 97.5 62 21 153/68 (96) 99 12/04/19 08:00 100 12/04/19 08:00 Mechanical Ventilator 12/04/19 07:38 66 12/04/19 07:10 97 21 40 12/04/19 05:30 159/73 12/04/19 04:49 65 22 40 12/04/19 04:00 Mechanical Ventilator 12/04/19 04:00 100 12/04/19 04:00 98.8 64 22 163/64 (97) 100 12/04/19 04:00 70 12/04/19 03:10 68 25 40 12/04/19 00:34 65 20 60 12/04/19 00:32 174/88 12/04/19 00:00 100 12/04/19 00:00 Mechanical Ventilator 12/04/19 00:00 98.2 65 25 167/86 (113) 100 12/03/19 23:42 64 12/03/19 22:33 69 24 70 12/03/19 20:51 65 20 80 12/03/19 20:39 65 166/94 12/03/19 20:00 98.2 67 26 166/94 (118) 100 12/03/19 20:00 Mechanical Ventilator 12/03/19 19:50 70 12/03/19 19:10 67 20 80 12/03/19 17:10 157/96 12/03/19 17:04 65 21 100 12/03/19 16:00 72 12/03/19 16:00 100 12/03/19 16:00 97.7 66 21 157/96 (116) 100 12/03/19 16:00 Mechanical Ventilator 12/03/19 15:09 83 30 40 12/03/19 13:06 78 36 40 12/03/19 12:51 156/72 Height (Feet): 5 Height (Inches): 4.00 Weight (Pounds): 150 General Appearance: no acute distress HEENT: atraumatic, trach in place Respiratory/Chest: no respiratory distress Cardiovascular: regular rhythm Laboratory Tests Test 12/03/19 13:24 12/03/19 18:15 12/03/19 21:00 12/04/19 04:00 Arterial Blood pH 7.268 (7.350-7.450) 7.405 (7.350-7.450) Arterial Blood Partial Pressure CO2 32.1 mmHg (35.0-45.0) L 27.0 mmHg (35.0-45.0) L Arterial Blood Partial Pressure O2 106.2 mmHg (75.0-100.0) H 121.0 mmHg (75.0-100.0) H Arterial Blood HCO3 14.3 mmol/L (22.0-26.0) *L 16.5 mmol/L (22.0-26.0) *L Arterial Blood Oxygen Saturation 97.2 % (95-100) 98.2 % (95-100) Arterial Blood Base Excess -11.5 (-2-2) *L -7.1 (-2-2) L Rojas Test Positive Positive Random Gentamicin Level 6.1 ug/mL Stool Occult Blood Pending Current Medications Medications (Trade) Dose Ordered Sig/Penny Route PRN Reason Start Time Stop Time Status Last Admin Dose Admin Acetaminophen (Tylenol) 650 mg Q4H PRN GT Temp >100.5 11/29/19 04:30 12/29/19 04:29 12/02/19 04:08 Acetaminophen/ Hydrocodone Bitart ([place] 10/325) 1 tab Q4H PRN GT For moderate pain 11/29/19 15:30 12/06/19 15:29 Ascorbic Acid (Vitamin C) 500 mg DAILY GT 11/29/19 09:00 12/29/19 08:59 12/04/19 09:24 Clonidine HCl (Catapres TTS-1) 1 patch ONCE A WEEK TDERMAL 12/03/19 09:00 03/02/20 08:59 12/03/19 09:10 Clotrimazole (Lotrimin) 1 applic THREE TIMES A DAY TOPIC 12/01/19 13:00 02/29/20 12:59 12/04/19 12:29 Epoetin Gelacio (Epoetin Gelacio-EPBX(NON ESRD)) 10,000 unit MON-MON-MON SUBQ 11/29/19 21:00 02/27/20 20:59 12/02/19 20:30 Gentamicin Protocol (Gentamicin pharmacy to dose) 1 ea DAILY PRN MISC Per rx protocol 12/02/19 18:00 01/01/20 17:59 Heparin Sodium (Porcine) (Heparin 5000 units/ml) 5,000 units EVERY 12 HOURS SUBQ 11/29/19 09:00 01/13/20 08:59 12/01/19 20:58 Hydralazine HCl (Apresoline) 25 mg Q6HR GT 11/29/19 18:00 02/27/20 17:59 12/04/19 12:29 Hydromorphone HCl (Dilaudid) 2 mg Q12HR ORAL 12/03/19 09:00 12/10/19 21:59 Lansoprazole (Prevacid) 30 mg DAILY GT 12/01/19 12:00 12/31/19 11:59 12/04/19 09:23 Meropenem 500 mg/ Sodium Chloride 55 ml @ 110 mls/hr Q12H IVPB 11/29/19 15:00 12/06/19 14:59 12/04/19 02:48 Metoclopramide HCl (Reglan) 10 mg Q6H IVP 12/04/19 10:00 01/03/20 09:59 12/04/19 10:56 Metolazone (Zaroxolyn) 2.5 mg QHS GT 11/29/19 21:00 12/29/19 20:59 12/03/19 20:38 Metolazone (Zaroxolyn) 5 mg DAILY GT 11/29/19 09:00 12/29/19 08:59 12/04/19 09:23 Metoprolol Tartrate (Lopressor) 12.5 mg Q12HR ORAL 12/03/19 21:00 03/02/20 08:59 12/04/19 09:24 Polyethylene Glycol (Miralax) 17 gm BEDTIME GT 11/29/19 21:00 12/29/19 20:59 12/03/19 20:39 Sodium Bicarbonate 100 ml/Dextrose 1,100 ml @ 80 mls/hr [id number] IV 12/03/19 21:00 01/02/20 20:59 12/04/19 10:57 Sodium Citrate (Bicitra) 30 ml EVERY 6 HOURS GT 12/03/19 09:00 01/02/20 08:59 12/04/19 12:29 Vitamin B Complex/ Vit C/Folic Acid (Nephrovite) 1 tab DAILY GT 11/29/19 09:00 12/29/19 08:59 12/04/19 09:24 Zinc Sulfate (Zinc Sulfate) 220 mg DAILY GT 11/29/19 09:00 02/27/20 08:59 12/04/19 09:24 Doreen Nino M.D. Dec 04, 2019 12:38
--- NOTE | 2019-12-04 13:17 | Surgery Progress Note ---
Surgery Progress Note Subjective Additional Comments labs noted wbc worse h/h comfortable on support Objective Last 24 Hour Vital Signs Date Time Temp Pulse Resp B/P (MAP) Pulse Ox O2 Delivery O2 Flow Rate FiO2 12/04/19 12:29 154/74 12/04/19 12:00 97.3 65 24 154/74 (100) 98 12/04/19 12:00 100 12/04/19 11:10 59 20 40 12/04/19 09:24 62 153/68 12/04/19 09:00 61 20 40 12/04/19 08:00 97.5 62 21 153/68 (96) 99 12/04/19 08:00 100 12/04/19 08:00 Mechanical Ventilator 12/04/19 07:38 66 12/04/19 07:10 97 21 40 12/04/19 05:30 159/73 12/04/19 04:49 65 22 40 12/04/19 04:00 Mechanical Ventilator 12/04/19 04:00 100 12/04/19 04:00 98.8 64 22 163/64 (97) 100 12/04/19 04:00 70 12/04/19 03:10 68 25 40 12/04/19 00:34 65 20 60 12/04/19 00:32 174/88 12/04/19 00:00 100 12/04/19 00:00 Mechanical Ventilator 12/04/19 00:00 98.2 65 25 167/86 (113) 100 12/03/19 23:42 64 12/03/19 22:33 69 24 70 12/03/19 20:51 65 20 80 12/03/19 20:39 65 166/94 12/03/19 20:00 98.2 67 26 166/94 (118) 100 12/03/19 20:00 Mechanical Ventilator 12/03/19 19:50 70 12/03/19 19:10 67 20 80 12/03/19 17:10 157/96 12/03/19 17:04 65 21 100 12/03/19 16:00 72 12/03/19 16:00 100 12/03/19 16:00 97.7 66 21 157/96 (116) 100 12/03/19 16:00 Mechanical Ventilator 12/03/19 15:09 83 30 40 I&O Intake and Output 12/03/19 12/04/19 19:00 07:00 Intake Total 605 ml 1246 ml Output Total 600 ml Balance 5 ml 1246 ml Intake Free Water 200 ml 40 ml IV Total 55 ml 766 ml Tube Feeding 350 ml 440 ml Output Urine Total 600 ml Dressing: saturated Cardiovascular: RSR Abdomen: non-tender, present bowel sounds Extremities: edema, no tenderness, no cyanosis Laboratory Tests Test 12/03/19 13:24 12/03/19 18:15 12/03/19 21:00 12/04/19 04:00 Arterial Blood pH 7.268 (7.350-7.450) 7.405 (7.350-7.450) Arterial Blood Partial Pressure CO2 32.1 mmHg (35.0-45.0) L 27.0 mmHg (35.0-45.0) L Arterial Blood Partial Pressure O2 106.2 mmHg (75.0-100.0) H 121.0 mmHg (75.0-100.0) H Arterial Blood HCO3 14.3 mmol/L (22.0-26.0) *L 16.5 mmol/L (22.0-26.0) *L Arterial Blood Oxygen Saturation 97.2 % (95-100) 98.2 % (95-100) Arterial Blood Base Excess -11.5 (-2-2) *L -7.1 (-2-2) L Rojas Test Positive Positive Random Gentamicin Level 6.1 ug/mL Stool Occult Blood Pending Plan Problems: (1) Dehydration (2) Acidosis (3) Anemia (4) Depression (5) Pancreatitis Assessment & Plan: 49F leukocytosis, elevated lip, lft's noted septic. work up ongoing npo iv fluids iv abx imaging ordered lipase worsening npo pending CT panc lip / jeanne improved diet as tolerated DAILY ESTIMATED NEEDS: Needs based on Critical care, wound, 56.8kg 28-33 kcals/kg [id number] total kcals 1.25-2 g protein/kg 71-114 g total protein Fluid per MD NUTRITION DIAGNOSIS: * Swallowing difficulty R/T dysphagia, respiratory status as evidenced by vent dep via trach, GT Dep. * Increase kcal and pro needs r/t wound healing and wasting as evidenced by stage 4 sacral wound. CURRENT TF:Nepro @ 40ml/hr x 20 hrs ENTERAL NUTRITION RECOMMENDATIONS: Nepro @ 45ml/hr x 20 hrs to provide 900ml, 1620kcal, 73g prot, 654ml free water * Increase TF to goal of 45ml/hr x20 hrs to better meet est needs * Water flush per MD * HOB over 30 degrees ADDITIONAL RECOMMENDATIONS: * Per SNF: HT=63", SD=229avx -> rec calibrated bedscale wt (Bed reads 79.4kg) * Rec TF increase as above to better meet est needs * F/up w/ H&P * WC-> continue Vit C, ZnSO4, Nephrovite Add FRANKLIN in 4oz BID for wound care Lung bases: See below. Pleural space: Bilateral moderate low-attenuation, partially loculated pleural effusions with extensive passive atelectasis; correlate to exclude superimposed aspiration or pneumonia. Liver: Ill-defined right hepatic lobe. 2.9 cm hypodensity not well evaluated on this study. Gallbladder and bile ducts: Unremarkable. No calcified stones. No ductal dilation. Pancreas: Unremarkable. No ductal dilation. Spleen: Unremarkable. No splenomegaly. Adrenals: Unremarkable. No mass. Kidneys and ureters: Left nephroureteral stent in the decompressed left, atrophic renal collecting system. No evident urolithiasis. No hydronephrosis. Stomach and bowel: Unremarkable. No obstruction. No mucosal thickening. Intraperitoneal space: Moderate nonloculated ascites. No free air. Bones/joints: Potentially chronic appearing right intertrochanteric hip fracture. Possible sacral decubitus ulcer, recommend direct visualization. No dislocation. Soft tissues: Severe anasarca. Incompletely evaluated chronic aortic dissection not well seen on this study due to lack of IV contrast and severe anasarca. Vasculature: Descending thoracic aortic ectasia 4 cm diameter above the hiatus. No abdominal aortic aneurysm. Lymph nodes: Unremarkable. No enlarged lymph nodes. Tubes, lines and devices: Percutaneous gastrostomy tube. Norman catheter in decompressed urinary bladder. IMPRESSION: 1. Study substantially limited due to lack of IV contrast and severe anasarca and moderate nonloculated ascites. 2. Left nephroureteral stent in the decompressed left, atrophic renal collecting system. 3. No evident urolithiasis. 4. Incompletely evaluated chronic aortic dissection not well seen on this study due to lack of IV contrast and severe anasarca. 5. Bilateral moderate low-attenuation, partially loculated pleural effusions with extensive passive atelectasis; correlate to exclude superimposed aspiration or pneumonia. 6. Percutaneous gastrostomy tube. 7. Norman catheter in decompressed urinary bladder. 8. Likely chronic appearing right intertrochanteric hip fracture. 9. Possible sacral decubitus ulcer, recommend direct visualization. (6) Pleural effusion (7) Renal failure (8) Respiratory failure (9) Schizophrenia (10) Hypoxia (11) Sepsis (12) UTI (urinary tract infection) (13) Pneumonia (14) ARF (acute renal failure) (15) NSTEMI (non-ST elevated myocardial infarction) (16) Tracheostomy in place (17) Feeding by G-tube (18) JAVIER (acute kidney injury) (19) Acute encephalopathy (20) Sacral decubitus ulcer, stage IV Assessment & Plan: Pt presented on admission with Full thickness stage 4 Sacral Pressure injury which extends into R gluteal cheek. Base of wound is granular with bone exposure at base of sacrococcygeal. Pt presented on admission with tracheostomy, GT, Full Thickness Pressure Injury Sacrococcygeal.Base of wound is 40% soft necrosis, 60% noni with undermined borders(L)5.8cm x (W)5.5cm x (D)1.5cm, undermining clockwise 10-1 by 2.7cm @12o'clock.(+) Epibole along edges with scattered slough. Small area that is purple and indurated noted clockwise @7-8o'clock along borders.Small amt serous exudate noted.Mild odor noted. hyperpigmentation periwound. At L ischium are two areas of dry pink epithelial with surrounding hyperpigmentation. Both heels are boggy with [id number] erythema. Tx.Plan: Cleanse sacral wound with Saline. Loosely pack with Hydrogel impregnated kerlix. Apply Moisture Barrier Paste periwound. Cover with Optifoam drsg Daily and prn. Apply Cavilon Skin Barrier to both heels and malleoli. Cover eachsite with Optifoam drsgs. Change every 7 days and prn. Reposition at least every 2hours or as tolerated. Off-load heels with pillow. APM/Maxwell Mattress overlay. (21) Chronic respiratory failure (22) Hypokalemia (23) Ascites (24) Bacteremia (25) Hypernatremia (26) Proteinuria (27) Electrolyte imbalance (28) Pacemaker (29) ACS (acute coronary syndrome) (30) Aortic dissection, thoracic (31) Respiratory failure, acute and chronic (32) JAVIER (acute kidney injury) (33) Abrasion of lip, initial encounter (34) COPD with exacerbation (35) Elevated alkaline phosphatase level (36) Renal failure (ARF), acute on chronic (37) HCAP (healthcare-associated pneumonia) (38) Lane Alexis Dec 04, 2019 13:17
[2019-12-04 15:52] VITALS: BP 152/71
--- NOTE | 2019-12-04 19:25 | General Progress Note ---
Subjective Constitutional: Reports: no symptoms HEENT: Reports: no symptoms Cardiovascular: Reports: no symptoms Respiratory: Reports: no symptoms Gastrointestinal/Abdominal: Reports: no symptoms Genitourinary: Reports: no symptoms Neurologic/Psychiatric: Reports: no symptoms Hematologic/Lymphatic: Reports: no symptoms Allergies: Coded Allergies: No Known Allergies (Unverified , 10/10/17) Objective Last 24 Hour Vital Signs Date Time Temp Pulse Resp B/P (MAP) Pulse Ox O2 Delivery O2 Flow Rate FiO2 12/04/19 18:06 152/71 12/04/19 17:22 60 20 40 12/04/19 16:00 Mechanical Ventilator 12/04/19 16:00 100 12/04/19 16:00 59 12/04/19 15:52 97.5 56 21 152/71 (98) 98 12/04/19 14:56 62 22 40 12/04/19 13:00 67 21 50 12/04/19 12:29 154/74 12/04/19 12:00 56 12/04/19 12:00 97.3 65 24 154/74 (100) 98 12/04/19 12:00 100 12/04/19 12:00 Mechanical Ventilator 12/04/19 11:10 59 20 40 12/04/19 09:24 62 153/68 12/04/19 09:00 61 20 40 12/04/19 08:00 97.5 62 21 153/68 (96) 99 12/04/19 08:00 100 12/04/19 08:00 Mechanical Ventilator 12/04/19 07:38 66 12/04/19 07:10 97 21 40 12/04/19 05:30 159/73 12/04/19 04:49 65 22 40 12/04/19 04:00 Mechanical Ventilator 12/04/19 04:00 100 12/04/19 04:00 98.8 64 22 163/64 (97) 100 12/04/19 04:00 70 12/04/19 03:10 68 25 40 12/04/19 00:34 65 20 60 12/04/19 00:32 174/88 12/04/19 00:00 100 12/04/19 00:00 Mechanical Ventilator 12/04/19 00:00 98.2 65 25 167/86 (113) 100 12/03/19 23:42 64 12/03/19 22:33 69 24 70 12/03/19 20:51 65 20 80 12/03/19 20:39 65 166/94 12/03/19 20:00 98.2 67 26 166/94 (118) 100 12/03/19 20:00 Mechanical Ventilator 12/03/19 19:50 70 Intake and Output 12/03/19 12/04/19 19:00 07:00 Intake Total 605 ml 1266 ml Output Total 600 ml Balance 5 ml 1266 ml Intake Free Water 200 ml 40 ml IV Total 55 ml 766 ml Tube Feeding 350 ml 460 ml Output Urine Total 600 ml Laboratory Tests 12/03/19 21:00: Arterial Blood pH 7.405, Arterial Blood Partial Pressure CO2 27.0L, Arterial Blood Partial Pressure O2 121.0H, Arterial Blood HCO3 16.5*L, Arterial Blood Oxygen Saturation 98.2, Arterial Blood Base Excess -7.1L, Rojas Test Positive 12/04/19 04:00: Stool Occult Blood Positive Height (Feet): 5 Height (Inches): 4.00 Weight (Pounds): 150 General Appearance: WD/WN, no apparent distress, lethargic EENT: normal ENT inspection Neck: supple Cardiovascular: normal rate, regular rhythm, no gallop/murmur, no JVD Respiratory/Chest: lungs clear, no respiratory distress, no accessory muscle use Abdomen: non tender, soft, no mass Extremities: non-tender Neurologic: unresponsive Skin: warm/dry Assessment/Plan Status Narrative Patient is afebrile hemodynamically stable appears somnolent and unresponsive without apparent distress she is currently on meropenem and gentamicin WBC is 17,000 which is slightly more than yesterday in addition patient received bicarbonate today is carbonate level was 16 we will continue with the same regimen as before 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 Lucas Canales MD, MD Dec 04, 2019 19:24
[2019-12-04 20:00] VITALS: BP 157/67
[2019-12-04] MEDS: Miralax 17gm pkt GT SCH (20:30)
[2019-12-04] MEDS: Epoetin Alfa-EPBX (NON ESRD)10,000 unit/ml vial SUBQ SCH (20:30)
[2019-12-04] MEDS: metOLazone 2.5 MG TAB GT SCH (20:34)
[2019-12-04] MEDS ORDERED: Tubing IV Secondary IV ONE (21:12)
[2019-12-04] MEDS ORDERED: NS 275ml ONE (21:12)
--- NOTE | 2019-12-04 21:38 | Cardiology Progress Note ---
Subjective DATE OF SERVICE: Dec 04, 2019 On vent support Troponin trended down Multiple electrolyte abnormalities Renal function remains impaired, but urine output is adequate. Monitor: Sinus and sinus bradycardia. No pauses. CT scan confirmed chronic aortic dissection Objective Last 24 Hour Vital Signs Date Time Temp Pulse Resp B/P (MAP) Pulse Ox O2 Delivery O2 Flow Rate FiO2 12/04/19 20:54 63 20 40 12/04/19 20:33 61 148/68 12/04/19 20:00 97.7 60 20 157/67 (97) 100 12/04/19 19:14 63 20 40 12/04/19 18:06 152/71 12/04/19 17:22 60 20 40 12/04/19 16:00 Mechanical Ventilator 12/04/19 16:00 100 12/04/19 16:00 59 12/04/19 15:52 97.5 56 21 152/71 (98) 98 12/04/19 14:56 62 22 40 12/04/19 13:00 67 21 50 12/04/19 12:29 154/74 12/04/19 12:00 56 12/04/19 12:00 97.3 65 24 154/74 (100) 98 12/04/19 12:00 100 12/04/19 12:00 Mechanical Ventilator 12/04/19 11:10 59 20 40 12/04/19 09:24 62 153/68 12/04/19 09:00 61 20 40 12/04/19 08:00 97.5 62 21 153/68 (96) 99 12/04/19 08:00 100 12/04/19 08:00 Mechanical Ventilator 12/04/19 07:38 66 12/04/19 07:10 97 21 40 12/04/19 05:30 159/73 12/04/19 04:49 65 22 40 12/04/19 04:00 Mechanical Ventilator 12/04/19 04:00 100 12/04/19 04:00 98.8 64 22 163/64 (97) 100 12/04/19 04:00 70 12/04/19 03:10 68 25 40 12/04/19 00:34 65 20 60 12/04/19 00:32 174/88 12/04/19 00:00 100 12/04/19 00:00 Mechanical Ventilator 12/04/19 00:00 98.2 65 25 167/86 (113) 100 12/03/19 23:42 64 12/03/19 22:33 69 24 70 ROS: no changes from my prior evaluation 11/30/19 HEENT: Thin secretions ET Tube RHYTHM: ST LUNGS: bilateral rhonchi CARDIAC: normal rate, regular rhythm, normal S1 and S2 ABDOMEN: normal bowel sounds, G-Tube intact EXTREMITIES: +2 edema Laboratory Tests Test 12/04/19 04:00 Stool Occult Blood Positive (NEGATIVE) Assessment/Plan Assessment/Plan Respiratory failure Acute myocardial ischemia and possible NSTE myocardial infarction Ischemic cardiomyopathy - s/p CABG Hx AAA repair with chronic dissection Paroxysmal AFib 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 Vent support Diuresis as able Deni Willams MD Dec 04, 2019 21:38
[2019-12-05] VITALS: BP 143/65
[2019-12-05] MEDS: Meropenem 500 MG in NS 55 ML IVPB SCH ×2 (03:07→14:06)
[2019-12-05] MEDS: Metoclopramide 10mg/2ml Inj IVP SCH ×4 (03:59→21:04)
[2019-12-05 04:00] VITALS: BP 140/60
[2019-12-05 05:12] LABS: BASOPHILS % (AUTO) 0.3 % (0.0-2.0); EOSINOPHILS % (AUTO) 6.8 % (0.0-3.0); HEMATOCRIT 24.5 % (37.0-47.0); HEMOGLOBIN 8.2 G/DL (12.0-16.0); LYMPHOCYTES % (AUTO) 26.9 % (20.0-45.0); MEAN CORPUSCULAR VOLUME 86 FL (80-99); MONOCYTES % (AUTO) 5.7 % (1.0-10.0); NEUTROPHILS % (AUTO) 60.3 % (45.0-75.0); PLATELET COUNT 361 K/UL (150-450); RED BLOOD COUNT 2.86 M/UL (4.20-5.40); RED CELL DISTRIBUTION WIDTH 14.6 % (11.6-14.8); WHITE BLOOD COUNT 7.3 K/UL (4.8-10.8)
[2019-12-05] MEDS: HydrALAZINE 25mg tab GT SCH ×4 (05:27→23:22)
[2019-12-05] MEDS: Sodium Citrate 30ml GT SCH (05:27)
[2019-12-05 05:34] LABS: ALANINE AMINOTRANSFERASE < 6 U/L (12-78); ALBUMIN 2.1 G/DL (3.4-5.0); ALBUMIN/GLOBULIN RATIO 0.7 (1.0-2.7); ALKALINE PHOSPHATASE 176 U/L (46-116); ANION GAP 13 mmol/L (5-15); ASPARTATE AMINO TRANSFERASE 26 U/L (15-37); BILIRUBIN,TOTAL 0.3 MG/DL (0.2-1.0); BLOOD UREA NITROGEN 129 mg/dL (7-18); CARBON DIOXIDE 23 MMOL/L (21-32); CHLORIDE 100 MMOL/L (98-107); CREATININE 3.6 MG/DL (0.55-1.30); POTASSIUM 3.1 MMOL/L (3.5-5.1); SODIUM 136 MMOL/L (136-145)
[2019-12-05 05:45] LABS: PHOSPHORUS 5.3 MG/DL (2.5-4.9)
--- NOTE | 2019-12-05 06:30 | Hematology/Onc Progress Note ---
Assessment/Plan Assessment/Plan Assessment and Recs # Leukocytosis, now with uti, though in past has had pna, pacemaker site infection and bacteremia --> is s/p pm removal and also pocket infection is better --> per cards recs in re to tach/davis --> wbc 29-->16-->17-->7 --> ABX vanc/angelo-->gent/angelo --> ID recs are noted # Anemia of chronic disease due to underlying chronic medical issues, multifactorial --> Anemia workup has been reviewed, cw acd --> No evidence of hemolysis is noted, peripheral smear has been reviewed. --> Hgb goal >7. Transfuse prn. --> Epogen started sq --> Medications have been reviewed --> low threshold for gi evaluation in case has occult + --> hgb 7.1-->7.8-->>>6.7->9.2-->8.9->8.2 --> 1 unit prbc1 --> gi eval as needed # Thrombocytois is likely reactive process, is s/p infection --> plt trend 358-->361 --> p smear reviewed # Acute hypoxic respiratory failure s/p intubation 11/23- ?ARDS --> on vent/trach # JAVIER initially >2 --> on ivfs -> may need hd per Dr. [place] # Elevated d-dimer --> venous duplex and v/q scan neg --> negative results # Dysphagia s/p peg # Thoracic aortic dissection s/p repair early 2017 # Psychiatric history on ativan/haldol # [place] resident # Dvt ppx --> heparin sq The timing of this note does not necessarily reflect the time of the patient was seen. Greatly appreciate consultation. Subjective Allergies: Coded Allergies: No Known Allergies (Unverified , 10/10/17) All Systems: reviewed and negative except above Subjective 12/01 on vent, with gtube and raymond, no bleeding, labs are noted 12/02 labs noted, remains on abx, dw Rn at bedside is on abx, hgb 8.9 12/03 roman Rn in am, with drainage blood from gtube site, and mouth,gi aware 12/04 on vent, hgb 8.2, no bleeding, k was given overnight Objective Objective Current Medications Medications (Trade) Dose Ordered Sig/Penny Route PRN Reason Start Time Stop Time Status Last Admin Dose Admin Acetaminophen (Tylenol) 650 mg Q4H PRN GT Temp >100.5 11/29/19 04:30 12/29/19 04:29 12/02/19 04:08 Acetaminophen/ Hydrocodone Bitart ([place] 10325) 1 tab Q4H PRN GT For moderate pain 11/29/19 15:30 12/06/19 15:29 Ascorbic Acid (Vitamin C) 500 mg DAILY GT 11/29/19 09:00 12/29/19 08:59 12/04/19 09:24 Clonidine HCl (Catapres TTS-1) 1 patch ONCE A WEEK TDERMAL 12/03/19 09:00 03/02/20 08:59 12/03/19 09:10 Clotrimazole (Lotrimin) 1 applic THREE TIMES A DAY TOPIC 12/01/19 13:00 02/29/20 12:59 12/04/19 18:06 Epoetin Gelacio (Epoetin Gelacio-EPBX(NON ESRD)) 10,000 unit MON-WED-MON SUBQ 11/29/19 21:00 02/27/20 20:59 12/04/19 20:30 Gentamicin Protocol (Gentamicin pharmacy to dose) 1 ea DAILY PRN MISC Per rx protocol 12/02/19 18:00 01/01/20 17:59 Heparin Sodium (Porcine) (Heparin 5000 units/ml) 5,000 units EVERY 12 HOURS SUBQ 11/29/19 09:00 01/13/20 08:59 12/01/19 20:58 Hydralazine HCl (Apresoline) 25 mg Q6HR GT 11/29/19 18:00 02/27/20 17:59 12/05/19 05:27 Hydromorphone HCl (Dilaudid) 2 mg Q12HR ORAL 12/03/19 09:00 12/10/19 21:59 12/04/19 20:33 Lansoprazole (Prevacid) 30 mg DAILY GT 12/01/19 12:00 12/31/19 11:59 12/04/19 09:23 Meropenem 500 mg/ Sodium Chloride 55 ml @ 110 mls/hr Q12H IVPB 11/29/19 15:00 12/06/19 14:59 12/05/19 03:07 Metoclopramide HCl (Reglan) 10 mg Q6H IVP 12/04/19 10:00 01/03/20 09:59 12/05/19 03:59 Metolazone (Zaroxolyn) 2.5 mg QHS GT 11/29/19 21:00 12/29/19 20:59 12/04/19 20:34 Metolazone (Zaroxolyn) 5 mg DAILY GT 11/29/19 09:00 12/29/19 08:59 12/04/19 09:23 Metoprolol Tartrate (Lopressor) 12.5 mg Q12HR ORAL 12/03/19 21:00 03/02/20 08:59 12/04/19 20:33 Polyethylene Glycol (Miralax) 17 gm BEDTIME GT 11/29/19 21:00 12/29/19 20:59 12/04/19 20:30 Potassium Chloride (K-Dur) 40 meq ONCE GT 12/05/19 07:00 12/05/19 09:00 Sodium Bicarbonate 100 ml/Dextrose 1,100 ml @ 80 mls/hr [id number] IV 12/03/19 21:00 01/02/20 20:59 12/04/19 23:48 Sodium Citrate (Bicitra) 30 ml EVERY 6 HOURS GT 12/03/19 09:00 01/02/20 08:59 12/05/19 05:27 Vitamin B Complex/ Vit C/Folic Acid (Nephrovite) 1 tab DAILY GT 11/29/19 09:00 12/29/19 08:59 12/04/19 09:24 Zinc Sulfate (Zinc Sulfate) 220 mg DAILY GT 11/29/19 09:00 02/27/20 08:59 12/04/19 09:24 Last 24 Hour Vital Signs Date Time Temp Pulse Resp B/P (MAP) Pulse Ox O2 Delivery O2 Flow Rate FiO2 12/05/19 05:27 148/59 12/05/19 05:11 55 20 40 12/05/19 04:00 40 12/05/19 04:00 97.9 54 20 140/60 (86) 95 12/05/19 04:00 Mechanical Ventilator 12/05/19 04:00 52 12/05/19 02:55 55 20 40 12/05/19 00:49 60 20 40 12/05/19 00:00 Mechanical Ventilator 12/05/19 00:00 59 12/05/19 00:00 97.7 62 19 143/65 (91) 96 12/04/19 23:47 139/64 12/04/19 22:48 55 20 40 12/04/19 20:54 63 20 40 12/04/19 20:33 61 148/68 12/04/19 20:00 61 12/04/19 20:00 Mechanical Ventilator 12/04/19 20:00 40 12/04/19 20:00 97.7 60 20 157/67 (97) 100 12/04/19 19:14 63 20 40 12/04/19 18:06 152/71 12/04/19 17:22 60 20 40 12/04/19 16:00 Mechanical Ventilator 12/04/19 16:00 100 12/04/19 16:00 59 12/04/19 15:52 97.5 56 21 152/71 (98) 98 12/04/19 14:56 62 22 40 12/04/19 13:00 67 21 50 12/04/19 12:29 154/74 12/04/19 12:00 56 12/04/19 12:00 97.3 65 24 154/74 (100) 98 12/04/19 12:00 100 12/04/19 12:00 Mechanical Ventilator 12/04/19 11:10 59 20 40 12/04/19 09:24 62 153/68 12/04/19 09:00 61 20 40 12/04/19 08:00 97.5 62 21 153/68 (96) 99 12/04/19 08:00 100 12/04/19 08:00 Mechanical Ventilator 12/04/19 07:38 66 12/04/19 07:10 97 21 40 12/04/19 05:30 159/73 12/04/19 04:49 65 22 40 12/04/19 04:00 Mechanical Ventilator 12/04/19 04:00 100 12/04/19 04:00 98.8 64 22 163/64 (97) 100 12/04/19 04:00 70 12/04/19 03:10 68 25 40 12/04/19 00:34 65 20 60 12/04/19 00:32 174/88 12/04/19 00:00 100 12/04/19 00:00 Mechanical Ventilator 12/04/19 00:00 98.2 65 25 167/86 (113) 100 12/03/19 23:42 64 12/03/19 22:33 69 24 70 12/03/19 20:51 65 20 80 12/03/19 20:39 65 166/94 12/03/19 20:00 98.2 67 26 166/94 (118) 100 12/03/19 20:00 Mechanical Ventilator 12/03/19 19:50 70 12/03/19 19:10 67 20 80 12/03/19 17:10 157/96 12/03/19 17:04 65 21 100 12/03/19 16:00 72 12/03/19 16:00 100 12/03/19 16:00 97.7 66 21 157/96 (116) 100 12/03/19 16:00 Mechanical Ventilator 12/03/19 15:09 83 30 40 12/03/19 13:06 78 36 40 12/03/19 12:51 156/72 12/03/19 12:00 40 12/03/19 12:00 Mechanical Ventilator 12/03/19 11:41 63 12/03/19 11:30 98.2 66 20 156/72 (100) 99 12/03/19 10:57 63 24 40 12/03/19 09:14 65 152/65 12/03/19 09:10 152/65 12/03/19 08:48 65 22 40 12/03/19 08:00 40 12/03/19 08:00 Mechanical Ventilator 12/03/19 08:00 98.2 63 20 152/65 (94) 99 12/03/19 07:31 71 12/03/19 07:26 67 24 40 Intake and Output 12/04/19 12/05/19 19:00 07:00 Intake Total 555 ml 1155 ml Output Total 500 ml 450 ml Balance 55 ml 705 ml Intake Free Water 200 ml 50 ml IV Total 55 ml 775 ml Tube Feeding 300 ml 330 ml Output Urine Total 500 ml 450 ml # Bowel Movements 3 Labs Test 12/02/19 07:39 12/02/19 12:25 12/02/19 17:56 12/03/19 04:30 POC Whole Blood Glucose 80 MG/DL (74-106) White Blood Count 17.0 K/UL (4.8-10.8) Red Blood Count 3.08 M/UL (4.20-5.40) Hemoglobin 8.9 G/DL (12.0-16.0) Hematocrit 25.8 % (37.0-47.0) Mean Corpuscular Volume 84 FL (80-99) Mean Corpuscular Hemoglobin 28.9 PG (27.0-31.0) Mean Corpuscular Hemoglobin Concent 34.5 G/DL (32.0-36.0) Red Cell Distribution Width 13.5 % (11.6-14.8) Platelet Count 369 K/UL (150-450) Mean Platelet Volume 4.5 FL (6.5-10.1) Neutrophils (%) (Auto) % (45.0-75.0) Lymphocytes (%) (Auto) % (20.0-45.0) Monocytes (%) (Auto) % (1.0-10.0) Eosinophils (%) (Auto) % (0.0-3.0) Basophils (%) (Auto) % (0.0-2.0) Differential Total Cells Counted 100 Neutrophils % (Manual) 85 % (45-75) Lymphocytes % (Manual) 11 % (20-45) Monocytes % (Manual) 4 % (1-10) Eosinophils % (Manual) 0 % (0-3) Basophils % (Manual) 0 % (0-2) Band Neutrophils 0 % (0-8) Platelet Estimate Adequate Platelet Morphology Normal Hypochromasia 1+ Anisocytosis 1+ Sodium Level 132 MMOL/L (136-145) Potassium Level 3.9 MMOL/L (3.5-5.1) Chloride Level 98 MMOL/L (98-107) Carbon Dioxide Level 15 MMOL/L (21-32) Blood Urea Nitrogen 132 mg/dL (7-18) Creatinine 3.4 MG/DL (0.55-1.30) Estimat Glomerular Filtration Rate 14.5 mL/min (>60) Glucose Level 94 MG/DL (74-106) Calcium Level 7.7 MG/DL (8.5-10.1) Phosphorus Level 5.9 MG/DL (2.5-4.9) Magnesium Level 3.1 MG/DL (1.8-2.4) Total Bilirubin 0.3 MG/DL (0.2-1.0) Aspartate Amino Transf (AST/SGOT) 21 U/L (15-37) Alanine Aminotransferase (ALT/SGPT) 8 U/L (12-78) Alkaline Phosphatase 139 U/L (46-116) C-Reactive Protein, Quantitative 9.6 mg/dL (0.00-0.90) Pro-B-Type Natriuretic Peptide > 76507 pg/mL (0-125) Total Protein 6.2 G/DL (6.4-8.2) Albumin 2.8 G/DL (3.4-5.0) Globulin 3.4 g/dL Albumin/Globulin Ratio 0.8 (1.0-2.7) Amylase Level 168 U/L (25-115) Lipase 1072 U/L (73-393) Test 12/03/19 13:24 12/03/19 18:15 12/03/19 21:00 12/04/19 04:00 Arterial Blood pH 7.268 (7.350-7.450) 7.405 (7.350-7.450) Arterial Blood Partial Pressure CO2 32.1 mmHg (35.0-45.0) 27.0 mmHg (35.0-45.0) Arterial Blood Partial Pressure O2 106.2 mmHg (75.0-100.0) 121.0 mmHg (75.0-100.0) Arterial Blood HCO3 14.3 mmol/L (22.0-26.0) 16.5 mmol/L (22.0-26.0) Arterial Blood Oxygen Saturation 97.2 % (95-100) 98.2 % (95-100) Arterial Blood Base Excess -11.5 (-2-2) -7.1 (-2-2) Rojas Test Positive Positive Random Gentamicin Level 6.1 ug/mL Stool Occult Blood Positive (NEGATIVE) Test 12/05/19 02:45 White Blood Count 7.3 K/UL (4.8-10.8) Red Blood Count 2.86 M/UL (4.20-5.40) Hemoglobin 8.2 G/DL (12.0-16.0) Hematocrit 24.5 % (37.0-47.0) Mean Corpuscular Volume 86 FL (80-99) Mean Corpuscular Hemoglobin 28.7 PG (27.0-31.0) Mean Corpuscular Hemoglobin Concent 33.5 G/DL (32.0-36.0) Red Cell Distribution Width 14.6 % (11.6-14.8) Platelet Count 361 K/UL (150-450) Mean Platelet Volume 5.3 FL (6.5-10.1) Neutrophils (%) (Auto) 60.3 % (45.0-75.0) Lymphocytes (%) (Auto) 26.9 % (20.0-45.0) Monocytes (%) (Auto) 5.7 % (1.0-10.0) Eosinophils (%) (Auto) 6.8 % (0.0-3.0) Basophils (%) (Auto) 0.3 % (0.0-2.0) Sodium Level 136 MMOL/L (136-145) Potassium Level 3.1 MMOL/L (3.5-5.1) Chloride Level 100 MMOL/L (98-107) Carbon Dioxide Level 23 MMOL/L (21-32) Anion Gap 13 mmol/L (5-15) Blood Urea Nitrogen 129 mg/dL (7-18) Creatinine 3.6 MG/DL (0.55-1.30) Estimat Glomerular Filtration Rate 13.6 mL/min (>60) Glucose Level 126 MG/DL (74-106) Uric Acid 8.0 MG/DL (2.6-7.2) Calcium Level 7.0 MG/DL (8.5-10.1) Phosphorus Level 5.3 MG/DL (2.5-4.9) Magnesium Level 3.0 MG/DL (1.8-2.4) Total Bilirubin 0.3 MG/DL (0.2-1.0) Aspartate Amino Transf (AST/SGOT) 26 U/L (15-37) Alanine Aminotransferase (ALT/SGPT) < 6 U/L (12-78) Alkaline Phosphatase 176 U/L (46-116) C-Reactive Protein, Quantitative 5.2 mg/dL (0.00-0.90) Pro-B-Type Natriuretic Peptide > 61470 pg/mL (0-125) Total Protein 5.2 G/DL (6.4-8.2) Albumin 2.1 G/DL (3.4-5.0) Globulin 3.1 g/dL Albumin/Globulin Ratio 0.7 (1.0-2.7) Amylase Level 128 U/L (25-115) Lipase 995 U/L (73-393) Random Gentamicin Level 4.7 ug/mL Height (Feet): 5 Height (Inches): 4.00 Weight (Pounds): 150 Objective Physical Exam: Vitals: reviewed General: NAD HEENT: nc, at Neck: supple ++tracn/vent Chest: clear breath sounds bilaterally Cardiovascular: RRR, no s3, s4 Abdomen: soft, nontender, nd +gtube Extremities: no cce, normal range of motion Neuro: alert ++Evan Molina MD Dec 05, 2019 06:30
[2019-12-05 07:28] VITALS: BP 127/61
[2019-12-05] MEDS: HYDROmorphone 2mg tab ORAL SCH ×2 (09:00→20:23)
[2019-12-05] MEDS: Heparin 5000 units/ml inj SUBQ SCH ×2 (09:00→20:28)
[2019-12-05] MEDS: Ascorbic Acid 500mg tab GT SCH (09:19)
[2019-12-05] MEDS: Metoprolol Tartrate 12.5mg TAB ORAL SCH ×2 (09:19→20:24)
[2019-12-05] MEDS: Zinc Sulfate 220mg GT SCH (09:19)
[2019-12-05] MEDS: Nephrovite tab (Rena-Vite) GT SCH (09:19)
--- NOTE | 2019-12-05 10:09 | Pulmonology Progress Note ---
Subjective ROS Limited/Unobtainable: Yes Interval Events: None new Constitutional: Reports: no symptoms HEENT: Repors: no symptoms Respiratory: Reports: no symptoms Cardiovascular: Reports: no symptoms Gastrointestinal/Abdominal: Reports: no symptoms Allergies: Coded Allergies: No Known Allergies (Unverified , 10/10/17) All Systems: reviewed and negative except above Objective Last 24 Hour Vital Signs Date Time Temp Pulse Resp B/P (MAP) Pulse Ox O2 Delivery O2 Flow Rate FiO2 12/05/19 09:19 66 127/61 12/05/19 09:00 64 25 40 12/05/19 08:00 Mechanical Ventilator 12/05/19 08:00 40 12/05/19 07:50 62 12/05/19 07:28 97.5 58 20 127/61 (83) 94 12/05/19 07:00 64 22 40 12/05/19 05:27 148/59 12/05/19 05:11 55 20 40 12/05/19 04:00 40 12/05/19 04:00 97.9 54 20 140/60 (86) 95 12/05/19 04:00 Mechanical Ventilator 12/05/19 04:00 52 12/05/19 02:55 55 20 40 12/05/19 00:49 60 20 40 12/05/19 00:00 Mechanical Ventilator 12/05/19 00:00 59 12/05/19 00:00 97.7 62 19 143/65 (91) 96 12/04/19 23:47 139/64 12/04/19 22:48 55 20 40 12/04/19 20:54 63 20 40 12/04/19 20:33 61 148/68 12/04/19 20:00 61 12/04/19 20:00 Mechanical Ventilator 12/04/19 20:00 40 12/04/19 20:00 97.7 60 20 157/67 (97) 100 12/04/19 19:14 63 20 40 12/04/19 18:06 152/71 12/04/19 17:22 60 20 40 12/04/19 16:00 Mechanical Ventilator 12/04/19 16:00 100 12/04/19 16:00 59 12/04/19 15:52 97.5 56 21 152/71 (98) 98 12/04/19 14:56 62 22 40 12/04/19 13:00 67 21 50 12/04/19 12:29 154/74 12/04/19 12:00 56 12/04/19 12:00 97.3 65 24 154/74 (100) 98 12/04/19 12:00 100 12/04/19 12:00 Mechanical Ventilator 12/04/19 11:10 59 20 40 Intake and Output 12/04/19 12/05/19 19:00 07:00 Intake Total 555 ml 1345 ml Output Total 500 ml 450 ml Balance 55 ml 895 ml Intake Free Water 200 ml 50 ml IV Total 55 ml 935 ml Tube Feeding 300 ml 360 ml Output Urine Total 500 ml 450 ml # Bowel Movements 3 General Appearance: no acute distress HEENT: normocephalic, status post trach Respiratory: chest wall non-tender, lungs clear Cardiovascular: normal peripheral pulses Abdomen: normal bowel sounds Laboratory Tests 12/05/19 02:45: White Blood Count 7.3, Red Blood Count 2.86L, Hemoglobin 8.2L, Hematocrit 24.5L, Mean Corpuscular Volume 86, Mean Corpuscular Hemoglobin 28.7, Mean Corpuscular Hemoglobin Concent 33.5, Red Cell Distribution Width 14.6, Platelet Count 361, Mean Platelet Volume 5.3L, Neutrophils (%) (Auto) 60.3, Lymphocytes (%) (Auto) 26.9, Monocytes (%) (Auto) 5.7, Eosinophils (%) (Auto) 6.8H, Basophils (%) (Auto) 0.3, Sodium Level 136, Potassium Level 3.1L, Chloride Level 100, Carbon Dioxide Level 23, Anion Gap 13, Blood Urea Nitrogen 129H, Creatinine 3.6H, Estimat Glomerular Filtration Rate 13.6, Glucose Level 126H, Uric Acid 8.0H, Calcium Level 7.0L, Phosphorus Level 5.3H, Magnesium Level 3.0H, Total Bilirubin 0.3, Aspartate Amino Transf (AST/SGOT) 26, Alanine Aminotransferase (ALT/SGPT) < 6L, Alkaline Phosphatase 176H, C-Reactive Protein, Quantitative 5.2H, Pro-B-Type Natriuretic Peptide > 77120E, Total Protein 5.2L, Albumin 2.1L, Globulin 3.1, Albumin/Globulin Ratio 0.7L, Amylase Level 128H, Lipase 995H, Random Gentamicin Level 4.7 Current Medications Medications (Trade) Dose Ordered Sig/Penny Route PRN Reason Start Time Stop Time Status Last Admin Dose Admin Acetaminophen (Tylenol) 650 mg Q4H PRN GT Temp >100.5 11/29/19 04:30 12/29/19 04:29 12/02/19 04:08 Acetaminophen/ Hydrocodone Bitart ([place] 10) 1 tab Q4H PRN GT For moderate pain 11/29/19 15:30 12/06/19 15:29 Ascorbic Acid (Vitamin C) 500 mg DAILY GT 11/29/19 09:00 12/29/19 08:59 12/05/19 09:19 Clonidine HCl (Catapres TTS-1) 1 patch ONCE A WEEK TDERMAL 12/03/19 09:00 03/02/20 08:59 12/03/19 09:10 Clotrimazole (Lotrimin) 1 applic THREE TIMES A DAY TOPIC 12/01/19 13:00 02/29/20 12:59 12/05/19 09:20 Epoetin E[place]acio (Epoetin Gelacio-EPBX(NON ESRD)) 10,000 unit MON-MON-MON SUBQ 11/29/19 21:00 02/27/20 20:59 12/04/19 20:30 Gentamicin Protocol (Gentamicin pharmacy to dose) 1 ea DAILY PRN MISC Per rx protocol 12/02/19 18:00 01/01/20 17:59 Heparin Sodium (Porcine) (Heparin 5000 units/ml) 5,000 units EVERY 12 HOURS SUBQ 11/29/19 09:00 01/13/20 08:59 12/01/19 20:58 Hydralazine HCl (Apresoline) 25 mg Q6HR GT 11/29/19 18:00 02/27/20 17:59 12/05/19 05:27 Hydromorphone HCl (Dilaudid) 2 mg Q12HR ORAL 12/03/19 09:00 12/10/19 21:59 12/04/19 20:33 Lansoprazole (Prevacid) 30 mg DAILY GT 12/01/19 12:00 12/31/19 11:59 12/05/19 09:19 Meropenem 500 mg/ Sodium Chloride 55 ml @ 110 mls/hr Q12H IVPB 11/29/19 15:00 12/06/19 14:59 12/05/19 03:07 Metoclopramide HCl (Reglan) 10 mg Q6H IVP 12/04/19 10:00 01/03/20 09:59 12/05/19 09:25 Metolazone (Zaroxolyn) 2.5 mg QHS GT 11/29/19 21:00 12/29/19 20:59 12/04/19 20:34 Metolazone (Zaroxolyn) 5 mg DAILY GT 11/29/19 09:00 12/29/19 08:59 12/05/19 09:19 Metoprolol Tartrate (Lopressor) 12.5 mg Q12HR ORAL 12/03/19 21:00 03/02/20 08:59 12/05/19 09:19 Polyethylene Glycol (Miralax) 17 gm BEDTIME GT 11/29/19 21:00 12/29/19 20:59 12/04/19 20:30 Sodium Bicarbonate 100 ml/Dextrose 1,100 ml @ 80 mls/hr [id number] IV 12/03/19 21:00 01/02/20 20:59 12/04/19 23:48 Sodium Citrate (Bicitra) 30 ml EVERY 6 HOURS GT 12/03/19 09:00 01/02/20 08:59 12/05/19 05:27 Vitamin B Complex/ Vit C/Folic Acid (Nephrovite) 1 tab DAILY GT 11/29/19 09:00 12/29/19 08:59 12/05/19 09:19 Zinc Sulfate (Zinc Sulfate) 220 mg DAILY GT 11/29/19 09:00 02/27/20 08:59 12/05/19 09:19 Assessment/Plan Assessment/Plan Assessment: COVID19 neg x1 Sepsis U TI Pl effusion PNA Low grade fever Leukocytosis, Acute on chronic hypoxic resp failure JAVIER on CKD- hx of Recent MDR PnA, sp rx H/o PPM site (pocket) infection and pocket abscess 2ry to S. epi-11/2018, sp >6weeks IV vancomycin CAD s/p CABG GERD/gastritis Afib HTN Dysphagia sp GT Aortic dissection s/p repair 2017, S/p PPM Parkinson's Disease Schizophrenia Anxiety COPD Chronic resp failure s/p trach Hx of tracheal bleeding [facility]) Plan: -Continue empiric abx -Monitor CBC/CMP, temperatures -PEG/trach care -aspiration precautions -COVID19 isolation and testing; -s/p thoracentesis- sent fluid analysis and culture - Will wean FiO2 down; currently on 40% FiO2 Elijah Stephen MD Dec 05, 2019 10:09
--- NOTE | 2019-12-05 10:45 | General Progress Note ---
Subjective ROS Limited/Unobtainable: No Allergies: Coded Allergies: No Known Allergies (Unverified , 10/10/17) Objective Last 24 Hour Vital Signs Date Time Temp Pulse Resp B/P (MAP) Pulse Ox O2 Delivery O2 Flow Rate FiO2 12/05/19 09:19 66 127/61 12/05/19 09:00 64 25 40 12/05/19 08:00 Mechanical Ventilator 12/05/19 08:00 40 12/05/19 07:50 62 12/05/19 07:28 97.5 58 20 127/61 (83) 94 12/05/19 07:00 64 22 40 12/05/19 05:27 148/59 12/05/19 05:11 55 20 40 12/05/19 04:00 40 12/05/19 04:00 97.9 54 20 140/60 (86) 95 12/05/19 04:00 Mechanical Ventilator 12/05/19 04:00 52 12/05/19 02:55 55 20 40 12/05/19 00:49 60 20 40 12/05/19 00:00 Mechanical Ventilator 12/05/19 00:00 59 12/05/19 00:00 97.7 62 19 143/65 (91) 96 12/04/19 23:47 139/64 12/04/19 22:48 55 20 40 12/04/19 20:54 63 20 40 12/04/19 20:33 61 148/68 12/04/19 20:00 61 12/04/19 20:00 Mechanical Ventilator 12/04/19 20:00 40 12/04/19 20:00 97.7 60 20 157/67 (97) 100 12/04/19 19:14 63 20 40 12/04/19 18:06 152/71 12/04/19 17:22 60 20 40 12/04/19 16:00 Mechanical Ventilator 12/04/19 16:00 100 12/04/19 16:00 59 12/04/19 15:52 97.5 56 21 152/71 (98) 98 12/04/19 14:56 62 22 40 12/04/19 13:00 67 21 50 12/04/19 12:29 154/74 12/04/19 12:00 56 12/04/19 12:00 97.3 65 24 154/74 (100) 98 12/04/19 12:00 100 12/04/19 12:00 Mechanical Ventilator 12/04/19 11:10 59 20 40 Intake and Output 12/04/19 12/05/19 19:00 07:00 Intake Total 555 ml 1345 ml Output Total 500 ml 450 ml Balance 55 ml 895 ml Intake Free Water 200 ml 50 ml IV Total 55 ml 935 ml Tube Feeding 300 ml 360 ml Output Urine Total 500 ml 450 ml # Bowel Movements 3 Laboratory Tests 12/05/19 02:45: White Blood Count 7.3, Red Blood Count 2.86L, Hemoglobin 8.2L, Hematocrit 24.5L, Mean Corpuscular Volume 86, Mean Corpuscular Hemoglobin 28.7, Mean Corpuscular Hemoglobin Concent 33.5, Red Cell Distribution Width 14.6, Platelet Count 361, Mean Platelet Volume 5.3L, Neutrophils (%) (Auto) 60.3, Lymphocytes (%) (Auto) 26.9, Monocytes (%) (Auto) 5.7, Eosinophils (%) (Auto) 6.8H, Basophils (%) (Auto) 0.3, Sodium Level 136, Potassium Level 3.1L, Chloride Level 100, Carbon Dioxide Level 23, Anion Gap 13, Blood Urea Nitrogen 129H, Creatinine 3.6H, Estimat Glomerular Filtration Rate 13.6, Glucose Level 126H, Uric Acid 8.0H, Calcium Level 7.0L, Phosphorus Level 5.3H, Magnesium Level 3.0H, Total Bilirubin 0.3, Aspartate Amino Transf (AST/SGOT) 26, Alanine Aminotransferase (ALT/SGPT) < 6L, Alkaline Phosphatase 176H, C-Reactive Protein, Quantitative 5.2H, Pro-B-Type Natriuretic Peptide > 91400O, Total Protein 5.2L, Albumin 2.1L, Globulin 3.1, Albumin/Globulin Ratio 0.7L, Amylase Level 128H, Lipase 995H, Random Gentamicin Level 4.7 Height (Feet): 5 Height (Inches): 4.00 Weight (Pounds): 150 General Appearance: no apparent distress EENT: normal ENT inspection Neck: supple Cardiovascular: normal rate Respiratory/Chest: decreased breath sounds Abdomen: normal bowel sounds, non tender, soft Extremities: non-tender Assessment/Plan Assessment/Plan: 1. Coronary artery disease with history of CABG. 2. Respiratory failure with history of tracheotomy. 3. Prior history of bacteremia. 4. History of prior pacemaker, status post explantation due to endovascular infection. 5. Chronic kidney disease. 6. Anemia of chronic kidney disease. 7. History of substance abuse. 8. Hyperlipidemia. 9. dysphagia with GT 10. Vitamin D deficiency. 11. History of aortic dissection and repair in 2018. 12. Paroxysmal atrial fibrillation. 13. Gastroesophageal reflux disease. 14. prei Gt cellulitis 15. pancreatitis repeat labs changed the GT to 22 Fr at the bedside >>> improved leakage add reglan may need GJT s/p blood transfusion fu stool ob ppi diogenes GT wound care Inder Mccauley MD Dec 05, 2019 10:45
[2019-12-05 11:59] VITALS: BP 139/61
[2019-12-05] MEDS ORDERED: Tubing IV Secondary IV ONE (12:01)
[2019-12-05] MEDS ORDERED: NS 275ml ONE (12:01)
--- NOTE | 2019-12-05 12:25 | Nephrology Progress Note ---
Assessment/Plan Problem List: (1) JAVIER (acute kidney injury) (2) Renal failure (ARF), acute on chronic (3) Feeding by G-tube (4) Tracheostomy in place (5) Electrolyte imbalance (6) Anemia (7) Respiratory failure, acute and chronic (8) Elevated lipase Assessment Patient is presented with sepsis and pneumonia and UTI, hypoxia Patient has acute renal failure, possible underlying chronic kidney failure Severe anemia Electrolyte imbalances: Hyponatremia, hypo-kalemia Chronic respiratory failure, COPD exacerbation Has sacral decubitus ulcer stage IV PEG Plan December 04: Patient started on IV fluid with sodium bicarb by Dr. Dong. So at this time we will hold the diuretics. Will follow-up renal parameters and electrolytes. Continue rest of management. Continue monitor lipase level December 03: No chemistry panel done today. Appears clinically stable. Will order renal parameters and lipase panel for tomorrow. Continue per consultants. Patient remains full code. December 02: Labs reviewed. Serum lipase decreasing. On 20 cc an hour Nepro via GT tube. Renal parameters unchanged. Urine output well maintained. Continue per consultants. White blood cells 17,000, hemoglobin 8.9. December 01: Lab reviewed. Hemoglobin higher. Serum creatinine 3.4. Creatinine clearance calculated . Serum lipase lowering. Continue per current management. November 30: Patient transfused. Hemoglobin higher. Serum sodium lower. Renal parameters unchanged. Trial of 3% saline. Continue monitor renal parameters. May require dialysis treatment depending on the how her condition evolves. Previously Consider transfusion Urine studies Adjust blood pressure medication Albumin bolus Norman catheter, intake and output Monitor renal parameters Avoid nephrotoxic's Antibiotics Per orders Subjective ROS Limited/Unobtainable: Yes Objective Objective Last 24 Hour Vital Signs Date Time Temp Pulse Resp B/P (MAP) Pulse Ox O2 Delivery O2 Flow Rate FiO2 12/05/19 12:00 40 12/05/19 11:59 97.3 56 19 139/61 (87) 93 12/05/19 09:19 66 127/61 12/05/19 09:00 64 25 40 12/05/19 08:00 Mechanical Ventilator 12/05/19 08:00 40 12/05/19 07:50 62 12/05/19 07:28 97.5 58 20 127/61 (83) 94 12/05/19 07:00 64 22 40 12/05/19 05:27 148/59 12/05/19 05:11 55 20 40 12/05/19 04:00 40 12/05/19 04:00 97.9 54 20 140/60 (86) 95 12/05/19 04:00 Mechanical Ventilator 12/05/19 04:00 52 12/05/19 02:55 55 20 40 12/05/19 00:49 60 20 40 12/05/19 00:00 Mechanical Ventilator 12/05/19 00:00 59 12/05/19 00:00 97.7 62 19 143/65 (91) 96 12/04/19 23:47 139/64 12/04/19 22:48 55 20 40 12/04/19 20:54 63 20 40 12/04/19 20:33 61 148/68 12/04/19 20:00 61 12/04/19 20:00 Mechanical Ventilator 12/04/19 20:00 40 12/04/19 20:00 97.7 60 20 157/67 (97) 100 12/04/19 19:14 63 20 40 12/04/19 18:06 152/71 12/04/19 17:22 60 20 40 12/04/19 16:00 Mechanical Ventilator 12/04/19 16:00 100 12/04/19 16:00 59 12/04/19 15:52 97.5 56 21 152/71 (98) 98 12/04/19 14:56 62 22 40 12/04/19 13:00 67 21 50 12/04/19 12:29 154/74 Intake and Output 12/04/19 12/05/19 19:00 07:00 Intake Total 555 ml 1345 ml Output Total 500 ml 450 ml Balance 55 ml 895 ml Intake Free Water 200 ml 50 ml IV Total 55 ml 935 ml Tube Feeding 300 ml 360 ml Output Urine Total 500 ml 450 ml # Bowel Movements 3 Current Medications Medications (Trade) Dose Ordered Sig/Penny Route PRN Reason Start Time Stop Time Status Last Admin Dose Admin Acetaminophen (Tylenol) 650 mg Q4H PRN GT Temp >100.5 11/29/19 04:30 12/29/19 04:29 12/02/19 04:08 Acetaminophen/ Hydrocodone Bitart (Golva 10/325) 1 tab Q4H PRN GT For moderate pain 11/29/19 15:30 12/06/19 15:29 Ascorbic Acid (Vitamin C) 500 mg DAILY GT 11/29/19 09:00 12/29/19 08:59 12/05/19 09:19 Clonidine HCl (Catapres TTS-1) 1 patch ONCE A WEEK TDERMAL 12/03/19 09:00 03/02/20 08:59 12/03/19 09:10 Clotrimazole (Lotrimin) 1 applic THREE TIMES A DAY TOPIC 12/01/19 13:00 02/29/20 12:59 12/05/19 09:20 Epoetin Gelacio (Epoetin Gelacio-EPBX(NON ESRD)) 10,000 unit MON-MON-MON SUBQ 11/29/19 21:00 02/27/20 20:59 12/04/19 20:30 Gentamicin Protocol (Gentamicin pharmacy to dose) 1 ea DAILY PRN MISC Per rx protocol 12/02/19 18:00 01/01/20 17:59 Heparin Sodium (Porcine) (Heparin 5000 units/ml) 5,000 units EVERY 12 HOURS SUBQ 11/29/19 09:00 01/13/20 08:59 12/01/19 20:58 Hydralazine HCl (Apresoline) 25 mg Q6HR GT 11/29/19 18:00 02/27/20 17:59 12/05/19 05:27 Hydromorphone HCl (Dilaudid) 2 mg Q12HR ORAL 12/03/19 09:00 12/10/19 21:59 12/04/19 20:33 Lansoprazole (Prevacid) 30 mg DAILY GT 12/01/19 12:00 12/31/19 11:59 12/05/19 09:19 Meropenem 500 mg/ Sodium Chloride 55 ml @ 110 mls/hr Q12H IVPB 11/29/19 15:00 12/06/19 14:59 12/05/19 03:07 Metoclopramide HCl (Reglan) 10 mg Q6H IVP 12/04/19 10:00 01/03/20 09:59 12/05/19 09:25 Metolazone (Zaroxolyn) 2.5 mg QHS GT 11/29/19 21:00 12/29/19 20:59 12/04/19 20:34 Metolazone (Zaroxolyn) 5 mg DAILY GT 11/29/19 09:00 12/29/19 08:59 12/05/19 09:19 Metoprolol Tartrate (Lopressor) 12.5 mg Q12HR ORAL 12/03/19 21:00 03/02/20 08:59 12/05/19 09:19 Polyethylene Glycol (Miralax) 17 gm BEDTIME GT 11/29/19 21:00 12/29/19 20:59 12/04/19 20:30 Potassium Chloride 100 ml @ 50 mls/hr ONCE ONCE IVPB 12/05/19 12:30 12/05/19 14:29 UNV Sodium Bicarbonate 100 ml/Dextrose 1,100 ml @ 80 mls/hr [id number] IV 12/03/19 21:00 01/02/20 20:59 12/04/19 23:48 Sodium Citrate (Bicitra) 30 ml EVERY 6 HOURS GT 12/03/19 09:00 01/02/20 08:59 12/05/19 05:27 Vitamin B Complex/ Vit C/Folic Acid (Nephrovite) 1 tab DAILY GT 11/29/19 09:00 12/29/19 08:59 12/05/19 09:19 Zinc Sulfate (Zinc Sulfate) 220 mg DAILY GT 11/29/19 09:00 02/27/20 08:59 12/05/19 09:19 Laboratory Tests 12/05/19 02:45: White Blood Count 7.3, Red Blood Count 2.86L, Hemoglobin 8.2L, Hematocrit 24.5L, Mean Corpuscular Volume 86, Mean Corpuscular Hemoglobin 28.7, Mean Corpuscular Hemoglobin Concent 33.5, Red Cell Distribution Width 14.6, Platelet Count 361, Mean Platelet Volume 5.3L, Neutrophils (%) (Auto) 60.3, Lymphocytes (%) (Auto) 26.9, Monocytes (%) (Auto) 5.7, Eosinophils (%) (Auto) 6.8H, Basophils (%) (Auto) 0.3, Sodium Level 136, Potassium Level 3.1L, Chloride Level 100, Carbon Dioxide Level 23, Anion Gap 13, Blood Urea Nitrogen 129H, Creatinine 3.6H, Estimat Glomerular Filtration Rate 13.6, Glucose Level 126H, Uric Acid 8.0H, Calcium Level 7.0L, Phosphorus Level 5.3H, Magnesium Level 3.0H, Total Bilirubin 0.3, Aspartate Amino Transf (AST/SGOT) 26, Alanine Aminotransferase (ALT/SGPT) < 6L, Alkaline Phosphatase 176H, C-Reactive Protein, Quantitative 5.2H, Pro-B-Type Natriuretic Peptide > 88036O, Total Protein 5.2L, Albumin 2.1L, Globulin 3.1, Albumin/Globulin Ratio 0.7L, Amylase Level 128H, Lipase 995H, Random Gentamicin Level 4.7 Height (Feet): 5 Height (Inches): 4.00 Weight (Pounds): 150 General Appearance: no apparent distress EENT: other - Trach to vent Cardiovascular: tachycardia Respiratory/Chest: decreased breath sounds Abdomen: distended Johnny Houston MD Dec 05, 2019 12:25
[2019-12-05] MEDS: Sodium Bicarbonate 100 ML in D5W 1000ml 1,000 ML IV SCH (13:58)
--- NOTE | 2019-12-05 14:08 | Infectious Diseases Prog Note ---
Assessment/Plan Assessment: COVID19 neg x2 (11/27 & rapid COVID PCR neg) Sepsis U TI -11/27 u/a wbc 30-40, nit neg, leuk +3; ucx ESBL P. mirablis, ESBL M. morganii Pl effusion, transudate - 11/28 Sp [place] (w: 169, PMN: 2%, L: 49% , LDH: 57, prot 2.5); cx Neg PNA -12/04 CXR p -11/28 CXR: Resolved right pleural effusion, status post thoracentesis. No radiographically evident complication Sp cx ESBL P. mirablis (S Meropenem, Zosyn), MDR PsA (S Gentamycin) Influenza ag neg -11/27 CXR: Increasing hazy right lung diffuse opacity. Suspect at least in part due to overlying soft tissue, but developing infiltrate also possible. Persistent and slightly increased left retrocardiac consolidation and slightly increased left pleural effusion -11/27 Bcx NTD -legionella ag urine, M. IgM neg Fever , SP Leukocytosis, SP -12/02 CT abd/p wo: Study substantially limited due to lack of IV contrast and severe anasarca and moderate nonloculated ascites. Left nephroureteral stent in the decompressed left, atrophic renal collecting system. No evident urolithiasis. Incompletely evaluated chronic aortic dissection not well seen on this study due to lack of IV contrast and severe anasarca. Bilateral moderate low-attenuation, partially loculated pleural effusions with extensive passive atelectasis; correlate to exclude superimposed aspiration or pneumonia.Percutaneous gastrostomy tube. Norman catheter in decompressed urinary bladder. Likely chronic appearing right intertrochanteric hip fracture. Possible sacral decubitus ulcer, recommend direct visualization. Acute on chronic hypoxic resp failure JAVIER on CKD; improving- on previous admission Sep-Oct 2019 required HD for short period hx of Recent MDR PnA, sp rx 10/15/19 sp cx ESBL P. mirabilis, MDR P.a. ( S only to Gent) 09/22 Resp cx + MDR PsA (S-gent; I-colistin; R-levofloxacin, Zosyn, angelo) 09/16/19 Sp cx ESBL P. mirablis hx of recent UTI 09/15/19 u/a wbc tnct, nit neg, leuk +3; ucx >100k MDR P. stuarti (S Ceftriaxone, Meropenem) 10/07 u/a wbc tnct, nit neg, leuk ; ucx >100k VRE 10/15/19 u/a wbc tnct; ucx >100k ESBL P. stuarti (S ertapenem, aztreonam) H/o PPM site (pocket) infection and pocket abscess 2ry to S. epi-11/2018, sp >6weeks IV vancomycin 11/27 SP ABBIE: no evidence for vegetation on any of the valves 11/26/18 SP PPM removal: OR findings:The fibrous capsule enclosing the generator was then opened and there was a [id number] amount of yellowish fluid drainage. The generator was then removed.Atrial and ventricular leads were detached. The necrotic tissue of the pocket was then removed and the pocket was flushed with an antibiotic solution. Capsule, wound tissue and lead tip cx: Neg 2d echo: no vegetation seen US chest: 4.6 x 3.4 x 0.9 cm hypoechoic/anechoic area overlying left chest pacemaker power pack. This could represent either a discrete fluid collection or a focal area of very edematous tissue. Infected fluid pocket also possible. 11/18 Bcx 3/4 S. epi; 11/20 Bcx neg; 11/24 Bcx Neg; 11/27 Bcx Neg CAD s/p CABG GERD/gastritis Afib HTN Dysphagia sp GT Aortic dissection s/p repair 2017, S/p PPM Parkinson's Disease Schizophrenia Anxiety COPD Chronic resp failure s/p trach Hx of tracheal bleeding [place] resident ([facility]) VRE and MRSA colonized Plan: -Meropenem # 7/7-10 and IV Gentamycin #4/7 for MDR PsA -12/01 SP IV Vancomycin #5 - 11/28 Sp Cefepime #2 and IV Gentamycin x1 -f/u cx -Monitor CBC/CMP, temperatures -PEG/trach care -aspiration precautions -COVID19 neg x2 -f/u cxr Subjective Allergies: Coded Allergies: No Known Allergies (Unverified , 10/10/17) afebrile >72hrs leukocytosis resolved FIo2 down to 40% Bcx Neg Objective Last 24 Hour Vital Signs Date Time Temp Pulse Resp B/P (MAP) Pulse Ox O2 Delivery O2 Flow Rate FiO2 12/05/19 12:40 139/61 12/05/19 12:00 Mechanical Ventilator 12/05/19 12:00 40 12/05/19 12:00 55 12/05/19 11:59 97.3 56 19 139/61 (87) 93 12/05/19 11:10 65 24 40 12/05/19 09:19 66 127/61 12/05/19 09:00 64 25 40 12/05/19 08:00 Mechanical Ventilator 12/05/19 08:00 40 12/05/19 07:50 62 12/05/19 07:28 97.5 58 20 127/61 (83) 94 12/05/19 07:00 64 22 40 12/05/19 05:27 148/59 12/05/19 05:11 55 20 40 12/05/19 04:00 40 12/05/19 04:00 97.9 54 20 140/60 (86) 95 12/05/19 04:00 Mechanical Ventilator 12/05/19 04:00 52 12/05/19 02:55 55 20 40 12/05/19 00:49 60 20 40 12/05/19 00:00 Mechanical Ventilator 12/05/19 00:00 59 12/05/19 00:00 97.7 62 19 143/65 (91) 96 12/04/19 23:47 139/64 12/04/19 22:48 55 20 40 12/04/19 20:54 63 20 40 12/04/19 20:33 61 148/68 12/04/19 20:00 61 12/04/19 20:00 Mechanical Ventilator 12/04/19 20:00 40 12/04/19 20:00 97.7 60 20 157/67 (97) 100 12/04/19 19:14 63 20 40 12/04/19 18:06 152/71 12/04/19 17:22 60 20 40 12/04/19 16:00 Mechanical Ventilator 12/04/19 16:00 100 12/04/19 16:00 59 12/04/19 15:52 97.5 56 21 152/71 (98) 98 12/04/19 14:56 62 22 40 Height (Feet): 5 Height (Inches): 4.00 Weight (Pounds): 150 General Appearance: no acute distress HEENT: atraumatic, trach in place Respiratory/Chest: no respiratory distress Cardiovascular: regular rhythm Laboratory Tests Test 12/05/19 02:45 White Blood Count 7.3 K/UL (4.8-10.8) Red Blood Count 2.86 M/UL (4.20-5.40) L Hemoglobin 8.2 G/DL (12.0-16.0) L Hematocrit 24.5 % (37.0-47.0) L Mean Corpuscular Volume 86 FL (80-99) Mean Corpuscular Hemoglobin 28.7 PG (27.0-31.0) Mean Corpuscular Hemoglobin Concent 33.5 G/DL (32.0-36.0) Red Cell Distribution Width 14.6 % (11.6-14.8) Platelet Count 361 K/UL (150-450) Mean Platelet Volume 5.3 FL (6.5-10.1) L Neutrophils (%) (Auto) 60.3 % (45.0-75.0) Lymphocytes (%) (Auto) 26.9 % (20.0-45.0) Monocytes (%) (Auto) 5.7 % (1.0-10.0) Eosinophils (%) (Auto) 6.8 % (0.0-3.0) H Basophils (%) (Auto) 0.3 % (0.0-2.0) Sodium Level 136 MMOL/L (136-145) Potassium Level 3.1 MMOL/L (3.5-5.1) L Chloride Level 100 MMOL/L (98-107) Carbon Dioxide Level 23 MMOL/L (21-32) Anion Gap 13 mmol/L (5-15) Blood Urea Nitrogen 129 mg/dL (7-18) H Creatinine 3.6 MG/DL (0.55-1.30) H Estimat Glomerular Filtration Rate 13.6 mL/min (>60) Glucose Level 126 MG/DL (74-106) H Uric Acid 8.0 MG/DL (2.6-7.2) H Calcium Level 7.0 MG/DL (8.5-10.1) L Phosphorus Level 5.3 MG/DL (2.5-4.9) H Magnesium Level 3.0 MG/DL (1.8-2.4) H Total Bilirubin 0.3 MG/DL (0.2-1.0) Aspartate Amino Transf (AST/SGOT) 26 U/L (15-37) Alanine Aminotransferase (ALT/SGPT) < 6 U/L (12-78) L Alkaline Phosphatase 176 U/L (46-116) H C-Reactive Protein, Quantitative 5.2 mg/dL (0.00-0.90) H Pro-B-Type Natriuretic Peptide > 09579 pg/mL (0-125) H Total Protein 5.2 G/DL (6.4-8.2) L Albumin 2.1 G/DL (3.4-5.0) L Globulin 3.1 g/dL Albumin/Globulin Ratio 0.7 (1.0-2.7) L Amylase Level 128 U/L (25-115) H Lipase 995 U/L (73-393) H Random Gentamicin Level 4.7 ug/mL Current Medications Medications (Trade) Dose Ordered Sig/Penny Route PRN Reason Start Time Stop Time Status Last Admin Dose Admin Acetaminophen (Tylenol) 650 mg Q4H PRN GT Temp >100.5 11/29/19 04:30 12/29/19 04:29 12/02/19 04:08 Acetaminophen/ Hydrocodone Bitart (Worth 10/325) 1 tab Q4H PRN GT For moderate pain 11/29/19 15:30 12/06/19 15:29 Ascorbic Acid (Vitamin C) 500 mg DAILY GT 11/29/19 09:00 12/29/19 08:59 12/05/19 09:19 Clonidine HCl (Catapres TTS-1) 1 patch ONCE A WEEK TDERMAL 12/03/19 09:00 03/02/20 08:59 12/03/19 09:10 Clotrimazole (Lotrimin) 1 applic THREE TIMES A DAY TOPIC 12/01/19 13:00 02/29/20 12:59 12/05/19 12:41 Epoetin Gelacio (Epoetin Gleacio-EPBX(NON ESRD)) 10,000 unit MON-WED-MON SUBQ 11/29/19 21:00 02/27/20 20:59 12/04/19 20:30 Gentamicin Protocol (Gentamicin pharmacy to dose) 1 ea DAILY PRN MISC Per rx protocol 12/02/19 18:00 01/01/20 17:59 Heparin Sodium (Porcine) (Heparin 5000 units/ml) 5,000 units EVERY 12 HOURS SUBQ 11/29/19 09:00 01/13/20 08:59 12/01/19 20:58 Hydralazine HCl (Apresoline) 25 mg Q6HR GT 11/29/19 18:00 02/27/20 17:59 12/05/19 12:40 Hydromorphone HCl (Dilaudid) 2 mg Q12HR ORAL 12/03/19 09:00 12/10/19 21:59 12/04/19 20:33 Lansoprazole (Prevacid) 30 mg DAILY GT 12/01/19 12:00 12/31/19 11:59 12/05/19 09:19 Meropenem 500 mg/ Sodium Chloride 55 ml @ 110 mls/hr Q12HR@0300,1500 IVPB 12/05/19 15:00 12/08/19 16:00 Metoclopramide HCl (Reglan) 10 mg Q6H IVP 12/04/19 10:00 01/03/20 09:59 12/05/19 09:25 Metoprolol Tartrate (Lopressor) 12.5 mg Q12HR ORAL 12/03/19 21:00 03/02/20 08:59 12/05/19 09:19 Polyethylene Glycol (Miralax) 17 gm BEDTIME GT 11/29/19 21:00 12/29/19 20:59 12/04/19 20:30 Potassium Chloride 100 ml @ 100 mls/hr Q1HR IVPB 12/05/19 13:00 12/05/19 14:59 12/05/19 13:49 Sodium Bicarbonate 100 ml/Dextrose 1,100 ml @ 80 mls/hr [id number] IV 12/03/19 21:00 01/02/20 20:59 12/05/19 13:58 Sodium Citrate (Bicitra) 30 ml BID GT 12/05/19 18:00 01/02/20 08:59 Vitamin B Complex/ Vit C/Folic Acid (Nephrovite) 1 tab DAILY GT 11/29/19 09:00 12/29/19 08:59 12/05/19 09:19 Zinc Sulfate (Zinc Sulfate) 220 mg DAILY GT 11/29/19 09:00 02/27/20 08:59 12/05/19 09:19 Doreen Nino M.D. Dec 05, 2019 14:08
--- NOTE | 2019-12-05 15:22 | Diagnostic Imaging Report ---
Indication: Reason For Exam: SOB Technique: Single AP view of the chest. Comparison: Chest radiograph dated 11/29/2019 Findings: The cardiomediastinal silhouette is unchanged in appearance. No significant change in moderate left pleural effusion with associated airspace consolidation. Increasing streaky right basilar airspace opacity. Stable mild pulmonary vascular congestion. No pneumothorax. Unchanged cannulated tracheostomy. Status post median sternotomy with preserved alignment of wires. IMPRESSION: 1. Stable moderate left pleural effusion with associated airspace consolidation. 2. Increasing right basilar airspace opacity which could represent developing consolidation versus worsening atelectasis.
[2019-12-05 16:00] VITALS: BP 154/67
--- NOTE | 2019-12-05 16:14 | Surgery Progress Note ---
Surgery Progress Note Subjective Additional Comments no acute events labs noted comfortable appearing on support settings noted and okay Objective Last 24 Hour Vital Signs Date Time Temp Pulse Resp B/P (MAP) Pulse Ox O2 Delivery O2 Flow Rate FiO2 12/05/19 16:00 40 12/05/19 16:00 97.9 59 20 154/67 (96) 95 12/05/19 15:00 61 23 40 12/05/19 13:10 55 22 40 12/05/19 12:40 139/61 12/05/19 12:00 Mechanical Ventilator 12/05/19 12:00 40 12/05/19 12:00 55 12/05/19 11:59 97.3 56 19 139/61 (87) 93 12/05/19 11:10 65 24 40 12/05/19 09:19 66 127/61 12/05/19 09:00 64 25 40 12/05/19 08:00 Mechanical Ventilator 12/05/19 08:00 40 12/05/19 07:50 62 12/05/19 07:28 97.5 58 20 127/61 (83) 94 12/05/19 07:00 64 22 40 12/05/19 05:27 148/59 12/05/19 05:11 55 20 40 12/05/19 04:00 40 12/05/19 04:00 97.9 54 20 140/60 (86) 95 12/05/19 04:00 Mechanical Ventilator 12/05/19 04:00 52 12/05/19 02:55 55 20 40 12/05/19 00:49 60 20 40 12/05/19 00:00 Mechanical Ventilator 12/05/19 00:00 59 12/05/19 00:00 97.7 62 19 143/65 (91) 96 12/04/19 23:47 139/64 12/04/19 22:48 55 20 40 12/04/19 20:54 63 20 40 12/04/19 20:33 61 148/68 12/04/19 20:00 61 12/04/19 20:00 Mechanical Ventilator 12/04/19 20:00 40 12/04/19 20:00 97.7 60 20 157/67 (97) 100 12/04/19 19:14 63 20 40 12/04/19 18:06 152/71 12/04/19 17:22 60 20 40 I&O Intake and Output 12/04/19 12/05/19 19:00 07:00 Intake Total 555 ml 1345 ml Output Total 500 ml 450 ml Balance 55 ml 895 ml Intake Free Water 200 ml 50 ml IV Total 55 ml 935 ml Tube Feeding 300 ml 360 ml Output Urine Total 500 ml 450 ml # Bowel Movements 3 Dressing: saturated Cardiovascular: RSR Respiratory: decreased breath sounds Abdomen: soft, non-tender, present bowel sounds Extremities: edema, no tenderness, no cyanosis Laboratory Tests Test 12/05/19 02:45 White Blood Count 7.3 K/UL (4.8-10.8) Red Blood Count 2.86 M/UL (4.20-5.40) L Hemoglobin 8.2 G/DL (12.0-16.0) L Hematocrit 24.5 % (37.0-47.0) L Mean Corpuscular Volume 86 FL (80-99) Mean Corpuscular Hemoglobin 28.7 PG (27.0-31.0) Mean Corpuscular Hemoglobin Concent 33.5 G/DL (32.0-36.0) Red Cell Distribution Width 14.6 % (11.6-14.8) Platelet Count 361 K/UL (150-450) Mean Platelet Volume 5.3 FL (6.5-10.1) L Neutrophils (%) (Auto) 60.3 % (45.0-75.0) Lymphocytes (%) (Auto) 26.9 % (20.0-45.0) Monocytes (%) (Auto) 5.7 % (1.0-10.0) Eosinophils (%) (Auto) 6.8 % (0.0-3.0) H Basophils (%) (Auto) 0.3 % (0.0-2.0) Sodium Level 136 MMOL/L (136-145) Potassium Level 3.1 MMOL/L (3.5-5.1) L Chloride Level 100 MMOL/L (98-107) Carbon Dioxide Level 23 MMOL/L (21-32) Anion Gap 13 mmol/L (5-15) Blood Urea Nitrogen 129 mg/dL (7-18) H Creatinine 3.6 MG/DL (0.55-1.30) H Estimat Glomerular Filtration Rate 13.6 mL/min (>60) Glucose Level 126 MG/DL (74-106) H Uric Acid 8.0 MG/DL (2.6-7.2) H Calcium Level 7.0 MG/DL (8.5-10.1) L Phosphorus Level 5.3 MG/DL (2.5-4.9) H Magnesium Level 3.0 MG/DL (1.8-2.4) H Total Bilirubin 0.3 MG/DL (0.2-1.0) Aspartate Amino Transf (AST/SGOT) 26 U/L (15-37) Alanine Aminotransferase (ALT/SGPT) < 6 U/L (12-78) L Alkaline Phosphatase 176 U/L (46-116) H C-Reactive Protein, Quantitative 5.2 mg/dL (0.00-0.90) H Pro-B-Type Natriuretic Peptide > 99344 pg/mL (0-125) H Total Protein 5.2 G/DL (6.4-8.2) L Albumin 2.1 G/DL (3.4-5.0) L Globulin 3.1 g/dL Albumin/Globulin Ratio 0.7 (1.0-2.7) L Amylase Level 128 U/L (25-115) H Lipase 995 U/L (73-393) H Random Gentamicin Level 4.7 ug/mL Plan Problems: (1) Dehydration (2) Acidosis (3) Anemia (4) Depression (5) Pancreatitis Assessment & Plan: 49F leukocytosis, elevated lip, lft's noted septic. work up ongoing npo iv fluids iv abx imaging ordered lipase worsening npo pending CT panc lip / jeanne improved diet as tolerated improving DAILY ESTIMATED NEEDS: Needs based on Critical care, wound, 56.8kg 28-33 kcals/kg [id number] total kcals 1.25-2 g protein/kg 71-114 g total protein Fluid per MD NUTRITION DIAGNOSIS: * Swallowing difficulty R/T dysphagia, respiratory status as evidenced by vent dep via trach, GT Dep. * Increase kcal and pro needs r/t wound healing and wasting as evidenced by stage 4 sacral wound. CURRENT TF:Nepro @ 40ml/hr x 20 hrs ENTERAL NUTRITION RECOMMENDATIONS: Nepro @ 45ml/hr x 20 hrs to provide 900ml, 1620kcal, 73g prot, 654ml free water * Increase TF to goal of 45ml/hr x20 hrs to better meet est needs * Water flush per MD * HOB over 30 degrees ADDITIONAL RECOMMENDATIONS: * Per SNF: HT=63", [id number] -> rec calibrated bedscale wt (Bed reads 79.4kg) * Rec TF increase as above to better meet est needs * F/up w/ H&P * WC-> continue Vit C, ZnSO4, Nephrovite Add FRANKLIN in 4oz BID for wound care Lung bases: See below. Pleural space: Bilateral moderate low-attenuation, partially loculated pleural effusions with extensive passive atelectasis; correlate to exclude superimposed aspiration or pneumonia. Liver: Ill-defined right hepatic lobe. 2.9 cm hypodensity not well evaluated on this study. Gallbladder and bile ducts: Unremarkable. No calcified stones. No ductal dilation. Pancreas: Unremarkable. No ductal dilation. Spleen: Unremarkable. No splenomegaly. Adrenals: Unremarkable. No mass. Kidneys and ureters: Left nephroureteral stent in the decompressed left, atrophic renal collecting system. No evident urolithiasis. No hydronephrosis. Stomach and bowel: Unremarkable. No obstruction. No mucosal thickening. Intraperitoneal space: Moderate nonloculated ascites. No free air. Bones/joints: Potentially chronic appearing right intertrochanteric hip fracture. Possible sacral decubitus ulcer, recommend direct visualization. No dislocation. Soft tissues: Severe anasarca. Incompletely evaluated chronic aortic dissection not well seen on this study due to lack of IV contrast and severe anasarca. Vasculature: Descending thoracic aortic ectasia 4 cm diameter above the hiatus. No abdominal aortic aneurysm. Lymph nodes: Unremarkable. No enlarged lymph nodes. Tubes, lines and devices: Percutaneous gastrostomy tube. Norman catheter in decompressed urinary bladder. IMPRESSION: 1. Study substantially limited due to lack of IV contrast and severe anasarca and moderate nonloculated ascites. 2. Left nephroureteral stent in the decompressed left, atrophic renal collecting system. 3. No evident urolithiasis. 4. Incompletely evaluated chronic aortic dissection not well seen on this study due to lack of IV contrast and severe anasarca. 5. Bilateral moderate low-attenuation, partially loculated pleural effusions with extensive passive atelectasis; correlate to exclude superimposed aspiration or pneumonia. 6. Percutaneous gastrostomy tube. 7. Norman catheter in decompressed urinary bladder. 8. Likely chronic appearing right intertrochanteric hip fracture. 9. Possible sacral decubitus ulcer, recommend direct visualization. (6) Pleural effusion (7) Renal failure (8) Respiratory failure (9) Schizophrenia (10) Hypoxia (11) Sepsis (12) UTI (urinary tract infection) (13) Pneumonia (14) ARF (acute renal failure) (15) NSTEMI (non-ST elevated myocardial infarction) (16) Tracheostomy in place (17) Feeding by G-tube (18) JAVIER (acute kidney injury) (19) Acute encephalopathy (20) Sacral decubitus ulcer, stage IV Assessment & Plan: Pt presented on admission with Full thickness stage 4 Sacral Pressure injury which extends into R gluteal cheek. Base of wound is granular with bone exposure at base of sacrococcygeal. Pt presented on admission with tracheostomy, GT, Full Thickness Pressure Injury Sacrococcygeal.Base of wound is 40% soft necrosis, 60% noni with undermined borders(L)5.8cm x (W)5.5cm x (D)1.5cm, undermining clockwise 10-1 by 2.7cm @12o'clock.(+) Epibole along edges with scattered slough. Small area that is purple and indurated noted clockwise @7-8o'clock along borders.Small amt serous exudate noted.Mild odor noted. hyperpigmentation periwound. At L ischium are two areas of dry pink epithelial with surrounding hyperpigmentation. Both heels are boggy with [id number] erythema. Tx.Plan: Cleanse sacral wound with Saline. Loosely pack with Hydrogel impregnated kerlix. Apply Moisture Barrier Paste periwound. Cover with Optifoam drsg Daily and prn. Apply Cavilon Skin Barrier to both heels and malleoli. Cover eachsite with Optifoam drsgs. Change every 7 days and prn. Reposition at least every 2hours or as tolerated. Off-load heels with pillow. APM/Maxwell Mattress overlay. (21) Chronic respiratory failure (22) Hypokalemia (23) Ascites (24) Bacteremia (25) Hypernatremia (26) Proteinuria (27) Electrolyte imbalance (28) Pacemaker (29) ACS (acute coronary syndrome) (30) Aortic dissection, thoracic (31) Respiratory failure, acute and chronic (32) JAVIER (acute kidney injury) (33) Abrasion of lip, initial encounter (34) COPD with exacerbation (35) Elevated alkaline phosphatase level (36) Renal failure (ARF), acute on chronic (37) HCAP (healthcare-associated pneumonia) (38) Lane Alexis Dec 05, 2019 16:14
[2019-12-05] MEDS ORDERED: Sodium Citrate 30ml GT SCH (18:00)
[2019-12-05 20:00] VITALS: BP 143/67
[2019-12-05] MEDS: Miralax 17gm pkt GT SCH (20:31)
--- NOTE | 2019-12-05 23:24 | General Progress Note ---
Subjective ROS Limited/Unobtainable: Yes HEENT: Reports: no symptoms Cardiovascular: Reports: no symptoms Respiratory: Reports: no symptoms Gastrointestinal/Abdominal: Reports: no symptoms Neurologic/Psychiatric: Reports: other - Persistently somnolent and was responding to tactile and nursing stimuli only Hematologic/Lymphatic: Reports: no symptoms Allergies: Coded Allergies: No Known Allergies (Unverified , 10/10/17) Objective Last 24 Hour Vital Signs Date Time Temp Pulse Resp B/P (MAP) Pulse Ox O2 Delivery O2 Flow Rate FiO2 12/05/19 21:45 60 20 40 12/05/19 20:24 54 143/67 12/05/19 20:00 97.7 54 20 143/67 (92) 96 12/05/19 20:00 40 12/05/19 20:00 Mechanical Ventilator 12/05/19 19:54 56 20 40 12/05/19 19:37 56 12/05/19 17:20 154/67 12/05/19 17:00 58 20 40 12/05/19 16:00 54 12/05/19 16:00 40 12/05/19 16:00 Mechanical Ventilator 12/05/19 16:00 97.9 59 20 154/67 (96) 95 12/05/19 15:00 61 23 40 12/05/19 13:10 55 22 40 12/05/19 12:40 139/61 12/05/19 12:00 Mechanical Ventilator 12/05/19 12:00 40 12/05/19 12:00 55 12/05/19 11:59 97.3 56 19 139/61 (87) 93 12/05/19 11:10 65 24 40 12/05/19 09:19 66 127/61 12/05/19 09:00 64 25 40 12/05/19 08:00 Mechanical Ventilator 12/05/19 08:00 40 12/05/19 07:50 62 12/05/19 07:28 97.5 58 20 127/61 (83) 94 12/05/19 07:00 64 22 40 12/05/19 05:27 148/59 12/05/19 05:11 55 20 40 12/05/19 04:00 40 12/05/19 04:00 97.9 54 20 140/60 (86) 95 12/05/19 04:00 Mechanical Ventilator 12/05/19 04:00 52 12/05/19 02:55 55 20 40 12/05/19 00:49 60 20 40 12/05/19 00:00 Mechanical Ventilator 12/05/19 00:00 59 12/05/19 00:00 97.7 62 19 143/65 (91) 96 12/04/19 23:47 139/64 Intake and Output 12/04/19 12/05/19 19:00 07:00 Intake Total 555 ml 1345 ml Output Total 500 ml 450 ml Balance 55 ml 895 ml Intake Free Water 200 ml 50 ml IV Total 55 ml 935 ml Tube Feeding 300 ml 360 ml Output Urine Total 500 ml 450 ml # Bowel Movements 3 Laboratory Tests 12/05/19 02:45: White Blood Count 7.3, Red Blood Count 2.86L, Hemoglobin 8.2L, Hematocrit 24.5L, Mean Corpuscular Volume 86, Mean Corpuscular Hemoglobin 28.7, Mean Corpuscular Hemoglobin Concent 33.5, Red Cell Distribution Width 14.6, Platelet Count 361, Mean Platelet Volume 5.3L, Neutrophils (%) (Auto) 60.3, Lymphocytes (%) (Auto) 26.9, Monocytes (%) (Auto) 5.7, Eosinophils (%) (Auto) 6.8H, Basophils (%) (Auto) 0.3, Sodium Level 136, Potassium Level 3.1L, Chloride Level 100, Carbon Dioxide Level 23, Anion Gap 13, Blood Urea Nitrogen 129H, Creatinine 3.6H, Estimat Glomerular Filtration Rate 13.6, Glucose Level 126H, Uric Acid 8.0H, Calcium Level 7.0L, Phosphorus Level 5.3H, Magnesium Level 3.0H, Total Bilirubin 0.3, Aspartate Amino Transf (AST/SGOT) 26, Alanine Aminotransferase (ALT/SGPT) < 6L, Alkaline Phosphatase 176H, C-Reactive Protein, Quantitative 5.2H, Pro-B-Type Natriuretic Peptide > 06799G, Total Protein 5.2L, Albumin 2.1L, Globulin 3.1, Albumin/Globulin Ratio 0.7L, Amylase Level 128H, Lipase 995H, Random Gentamicin Level 4.7 Height (Feet): 5 Height (Inches): 4.00 Weight (Pounds): 150 General Appearance: WD/WN, no apparent distress, other - Appear to be peacefully somnolent EENT: normal ENT inspection Neck: supple Cardiovascular: regular rhythm, no gallop/murmur, no JVD, bradycardia Respiratory/Chest: no respiratory distress, no accessory muscle use, decreased breath sounds, rhonchi - bilaterally Abdomen: normal bowel sounds, non tender, soft, no organomegaly, no mass Extremities: non-tender Neurologic: unresponsive Skin: warm/dry Assessment/Plan Status Narrative Patient is afebrile hemodynamically stable and for the first day since admission her leukocytosis is normal the striking thing about this admission is the patient does not wake up and requests and insist on her pain medication ineffective the last 3 days patient did not request a single injection or medication of Dilaudid during this. Her Dilaudid was reduced from every 4 hours to every 12 hours as needed while the patient did not complain of any pain today Dilaudid was completely DC'd patient currently is on meropenem and gentamicin for Morganella morganii and Proteus mirabilis while in the 1 [employer]. She reviewed today normal white count the same timepatient renal function progressively declined even though on the vent and management edema and periorbital edema completely resolved the main concern now is patient mental status CT scan of the brain without contrast was ordered repeat laboratory tests will be done in a.m. Lucas Canales MD, MD Dec 05, 2019 23:23
--- NOTE | 2019-12-05 23:36 | Cardiology Progress Note ---
Subjective DATE OF SERVICE: Dec 05, 2019 On vent support CXR (12/05/19) reveals worsening left consolidation and eff'n, with new right infiltrate/atelectasis. Multiple electrolyte abnormalities Renal function remains impaired, but urine output is adequate. Monitor: Sinus and sinus bradycardia. No pauses. CT scan confirmed chronic aortic dissection Objective Last 24 Hour Vital Signs Date Time Temp Pulse Resp B/P (MAP) Pulse Ox O2 Delivery O2 Flow Rate FiO2 12/05/19 23:22 139/66 12/05/19 21:45 60 20 40 12/05/19 20:24 54 143/67 12/05/19 20:00 97.7 54 20 143/67 (92) 96 12/05/19 20:00 40 12/05/19 20:00 Mechanical Ventilator 12/05/19 19:54 56 20 40 12/05/19 19:37 56 12/05/19 17:20 154/67 12/05/19 17:00 58 20 40 12/05/19 16:00 54 12/05/19 16:00 40 12/05/19 16:00 Mechanical Ventilator 12/05/19 16:00 97.9 59 20 154/67 (96) 95 12/05/19 15:00 61 23 40 12/05/19 13:10 55 22 40 12/05/19 12:40 139/61 12/05/19 12:00 Mechanical Ventilator 12/05/19 12:00 40 12/05/19 12:00 55 12/05/19 11:59 97.3 56 19 139/61 (87) 93 12/05/19 11:10 65 24 40 12/05/19 09:19 66 127/61 12/05/19 09:00 64 25 40 12/05/19 08:00 Mechanical Ventilator 12/05/19 08:00 40 12/05/19 07:50 62 12/05/19 07:28 97.5 58 20 127/61 (83) 94 12/05/19 07:00 64 22 40 12/05/19 05:27 148/59 12/05/19 05:11 55 20 40 12/05/19 04:00 40 12/05/19 04:00 97.9 54 20 140/60 (86) 95 12/05/19 04:00 Mechanical Ventilator 12/05/19 04:00 52 12/05/19 02:55 55 20 40 12/05/19 00:49 60 20 40 12/05/19 00:00 Mechanical Ventilator 12/05/19 00:00 59 12/05/19 00:00 97.7 62 19 143/65 (91) 96 12/04/19 23:47 139/64 ROS: no changes from my prior evaluation 11/30/19 HEENT: Thin secretions ET Tube RHYTHM: ST LUNGS: bilateral rhonchi CARDIAC: normal rate, regular rhythm, normal S1 and S2 ABDOMEN: normal bowel sounds, G-Tube intact EXTREMITIES: +2 edema Laboratory Tests Test 12/05/19 02:45 White Blood Count 7.3 K/UL (4.8-10.8) Red Blood Count 2.86 M/UL (4.20-5.40) L Hemoglobin 8.2 G/DL (12.0-16.0) L Hematocrit 24.5 % (37.0-47.0) L Mean Corpuscular Volume 86 FL (80-99) Mean Corpuscular Hemoglobin 28.7 PG (27.0-31.0) Mean Corpuscular Hemoglobin Concent 33.5 G/DL (32.0-36.0) Red Cell Distribution Width 14.6 % (11.6-14.8) Platelet Count 361 K/UL (150-450) Mean Platelet Volume 5.3 FL (6.5-10.1) L Neutrophils (%) (Auto) 60.3 % (45.0-75.0) Lymphocytes (%) (Auto) 26.9 % (20.0-45.0) Monocytes (%) (Auto) 5.7 % (1.0-10.0) Eosinophils (%) (Auto) 6.8 % (0.0-3.0) H Basophils (%) (Auto) 0.3 % (0.0-2.0) Sodium Level 136 MMOL/L (136-145) Potassium Level 3.1 MMOL/L (3.5-5.1) L Chloride Level 100 MMOL/L (98-107) Carbon Dioxide Level 23 MMOL/L (21-32) Anion Gap 13 mmol/L (5-15) Blood Urea Nitrogen 129 mg/dL (7-18) H Creatinine 3.6 MG/DL (0.55-1.30) H Estimat Glomerular Filtration Rate 13.6 mL/min (>60) Glucose Level 126 MG/DL (74-106) H Uric Acid 8.0 MG/DL (2.6-7.2) H Calcium Level 7.0 MG/DL (8.5-10.1) L Phosphorus Level 5.3 MG/DL (2.5-4.9) H Magnesium Level 3.0 MG/DL (1.8-2.4) H Total Bilirubin 0.3 MG/DL (0.2-1.0) Aspartate Amino Transf (AST/SGOT) 26 U/L (15-37) Alanine Aminotransferase (ALT/SGPT) < 6 U/L (12-78) L Alkaline Phosphatase 176 U/L (46-116) H C-Reactive Protein, Quantitative 5.2 mg/dL (0.00-0.90) H Pro-B-Type Natriuretic Peptide > 29393 pg/mL (0-125) H Total Protein 5.2 G/DL (6.4-8.2) L Albumin 2.1 G/DL (3.4-5.0) L Globulin 3.1 g/dL Albumin/Globulin Ratio 0.7 (1.0-2.7) L Amylase Level 128 U/L (25-115) H Lipase 995 U/L (73-393) H Random Gentamicin Level 4.7 ug/mL Assessment/Plan Assessment/Plan Respiratory failure Acute myocardial ischemia and possible NSTE myocardial infarction Ischemic cardiomyopathy - s/p CABG Hx AAA repair with chronic dissection Paroxysmal AFib Pacemaker explant due to infection Decubitus sepsis Low lipid parameters Renal failure ac/chr Degenerative aortic valve disease (Mild-mod AI and ) Mild pulmonary hypertension Antimicrobials Anti-plt therapy Titrate beta flori - now stable heart rate on low dose regimen. Vent support Diuresis as able Add amlodipine instead of hydralazine Deni Willams MD Dec 05, 2019 23:36
[2019-12-06] VITALS: BP 139/66
[2019-12-06] MEDS: Sodium Bicarbonate 100 ML in D5W 1000ml 1,000 ML IV SCH ×2 (03:01→17:53)
[2019-12-06] MEDS: Meropenem 500 MG in NS 55 ML IVPB SCH ×2 (03:01→15:07)
[2019-12-06] MEDS: Metoclopramide 10mg/2ml Inj IVP SCH ×4 (03:01→21:00)
[2019-12-06 04:00] VITALS: BP 148/62
[2019-12-06 04:58] LABS: BASOPHILS % (AUTO) 0.4 % (0.0-2.0); EOSINOPHILS % (AUTO) 4.9 % (0.0-3.0); HEMATOCRIT 26.5 % (37.0-47.0); HEMOGLOBIN 8.5 G/DL (12.0-16.0); LYMPHOCYTES % (AUTO) 26.1 % (20.0-45.0); MEAN CORPUSCULAR VOLUME 88 FL (80-99); MONOCYTES % (AUTO) 5.3 % (1.0-10.0); NEUTROPHILS % (AUTO) 63.4 % (45.0-75.0); PLATELET COUNT 349 K/UL (150-450); RED BLOOD COUNT 3.01 M/UL (4.20-5.40); RED CELL DISTRIBUTION WIDTH 14.3 % (11.6-14.8); WHITE BLOOD COUNT 6.4 K/UL (4.8-10.8)
[2019-12-06 05:42] LABS: ALANINE AMINOTRANSFERASE 8 U/L (12-78); ALBUMIN 2.1 G/DL (3.4-5.0); ALBUMIN/GLOBULIN RATIO 0.6 (1.0-2.7); ALKALINE PHOSPHATASE 207 U/L (46-116); ASPARTATE AMINO TRANSFERASE 32 U/L (15-37); BILIRUBIN,TOTAL 0.3 MG/DL (0.2-1.0); BLOOD UREA NITROGEN 125 mg/dL (7-18); CALCIUM 7.1 MG/DL (8.5-10.1); CARBON DIOXIDE 24 MMOL/L (21-32); CHLORIDE 99 MMOL/L (98-107); CREATININE 3.5 MG/DL (0.55-1.30); PHOSPHORUS 4.8 MG/DL (2.5-4.9); POTASSIUM 3.3 MMOL/L (3.5-5.1); SODIUM 137 MMOL/L (136-145)
[2019-12-06 08:00] VITALS: BP 150/67
[2019-12-06] MEDS: Heparin 5000 units/ml inj SUBQ SCH ×2 (09:00→20:53)
[2019-12-06] MEDS: Acetaminophen 650mg/20.3ml GT PRN (09:14)
[2019-12-06] MEDS: Metoprolol Tartrate 12.5mg TAB ORAL SCH ×2 (09:14→21:00)
[2019-12-06] MEDS: Ascorbic Acid 500mg tab GT SCH (09:14)
[2019-12-06] MEDS: Zinc Sulfate 220mg GT SCH (09:14)
[2019-12-06] MEDS: Nephrovite tab (Rena-Vite) GT SCH (09:14)
--- NOTE | 2019-12-06 10:11 | General Progress Note ---
Subjective ROS Limited/Unobtainable: No Allergies: Coded Allergies: No Known Allergies (Unverified , 10/10/17) Objective Last 24 Hour Vital Signs Date Time Temp Pulse Resp B/P (MAP) Pulse Ox O2 Delivery O2 Flow Rate FiO2 12/06/19 09:15 61 149/81 12/06/19 09:14 61 149/81 12/06/19 08:00 40 12/06/19 08:00 97.8 61 18 150/67 (94) 100 12/06/19 08:00 Mechanical Ventilator 12/06/19 07:15 61 22 40 12/06/19 05:12 60 20 40 12/06/19 04:00 97.5 58 22 148/62 (90) 100 12/06/19 04:00 40 12/06/19 04:00 Mechanical Ventilator 12/06/19 03:45 58 20 40 12/06/19 03:43 57 12/06/19 01:40 58 20 40 12/06/19 00:00 40 12/06/19 00:00 Mechanical Ventilator 12/06/19 00:00 97.5 59 20 139/66 (90) 96 12/05/19 23:53 62 12/05/19 23:42 63 23 40 12/05/19 23:22 139/66 12/05/19 21:45 60 20 40 12/05/19 20:24 54 143/67 12/05/19 20:00 97.7 54 20 143/67 (92) 96 12/05/19 20:00 40 12/05/19 20:00 Mechanical Ventilator 12/05/19 19:54 56 20 40 12/05/19 19:37 56 12/05/19 17:20 154/67 12/05/19 17:00 58 20 40 12/05/19 16:00 54 12/05/19 16:00 40 12/05/19 16:00 Mechanical Ventilator 12/05/19 16:00 97.9 59 20 154/67 (96) 95 12/05/19 15:00 61 23 40 12/05/19 13:10 55 22 40 12/05/19 12:40 139/61 12/05/19 12:00 Mechanical Ventilator 12/05/19 12:00 40 12/05/19 12:00 55 12/05/19 11:59 97.3 56 19 139/61 (87) 93 12/05/19 11:10 65 24 40 Intake and Output 12/05/19 12/06/19 19:00 07:00 Intake Total 1725 ml 1398 ml Output Total 500 ml 650 ml Balance 1225 ml 748 ml Intake Free Water 170 ml 50 ml IV Total 1195 ml 988 ml Tube Feeding 360 ml 360 ml Output Urine Total 500 ml 650 ml # Bowel Movements 3 1 Laboratory Tests 12/06/19 02:45: White Blood Count 6.4, Red Blood Count 3.01L, Hemoglobin 8.5L, Hematocrit 26.5L, Mean Corpuscular Volume 88, Mean Corpuscular Hemoglobin 28.4, Mean Corpuscular Hemoglobin Concent 32.2, Red Cell Distribution Width 14.3, Platelet Count 349, Mean Platelet Volume 5.0L, Neutrophils (%) (Auto) 63.4, Lymphocytes (%) (Auto) 26.1, Monocytes (%) (Auto) 5.3, Eosinophils (%) (Auto) 4.9H, Basophils (%) (Auto) 0.4, Sodium Level 137, Potassium Level 3.3L, Chloride Level 99, Carbon Dioxide Level 24, Blood Urea Nitrogen 125H, Creatinine 3.5H, Estimat Glomerular Filtration Rate 14.0, Glucose Level 122H, Uric Acid 7.5H, Calcium Level 7.1L, Phosphorus Level 4.8, Magnesium Level 3.0H, Total Bilirubin 0.3, Aspartate Amino Transf (AST/SGOT) 32, Alanine Aminotransferase (ALT/SGPT) 8L, Alkaline Phosphatase 207H, C-Reactive Protein, Quantitative 5.0H, Pro-B-Type Natriuretic Peptide > 18193A, Total Protein 5.4L, Albumin 2.1L, Globulin 3.3, Albumin/Globulin Ratio 0.6L, Lipase 886H Height (Feet): 5 Height (Inches): 4.00 Weight (Pounds): 150 General Appearance: alert EENT: normal ENT inspection Neck: supple Cardiovascular: normal rate Respiratory/Chest: lungs clear Abdomen: hypoactive bowel sounds, decreased bowel sounds Extremities: non-tender Assessment/Plan Assessment/Plan: 1. Coronary artery disease with history of CABG. 2. Respiratory failure with history of tracheotomy. 3. Prior history of bacteremia. 4. History of prior pacemaker, status post explantation due to endovascular infection. 5. Chronic kidney disease. 6. Anemia of chronic kidney disease. 7. History of substance abuse. 8. Hyperlipidemia. 9. dysphagia with GT 10. Vitamin D deficiency. 11. History of aortic dissection and repair in 2018. 12. Paroxysmal atrial fibrillation. 13. Gastroesophageal reflux disease. 14. prei Gt cellulitis 15. pancreatitis repeat labs changed the GT to 22 Fr at the bedside >>> improved leakage on reglan may need GJT s/p blood transfusion fu stool ob ppi diogenes GT wound care Inder Mccauley MD Dec 06, 2019 10:11
--- NOTE | 2019-12-06 11:30 | Surgery Progress Note ---
Surgery Progress Note Subjective Additional Comments no acute events labs improving comfortable electrolytes being replaced new feeding tube by GI working Objective Last 24 Hour Vital Signs Date Time Temp Pulse Resp B/P (MAP) Pulse Ox O2 Delivery O2 Flow Rate FiO2 12/06/19 11:00 55 20 40 12/06/19 09:44 97.8 12/06/19 09:15 61 149/81 12/06/19 09:14 61 149/81 12/06/19 09:00 61 20 40 12/06/19 08:00 40 12/06/19 08:00 97.8 61 18 150/67 (94) 100 12/06/19 08:00 Mechanical Ventilator 12/06/19 07:47 60 12/06/19 07:15 61 22 40 12/06/19 05:12 60 20 40 12/06/19 04:00 97.5 58 22 148/62 (90) 100 12/06/19 04:00 40 12/06/19 04:00 Mechanical Ventilator 12/06/19 03:45 58 20 40 12/06/19 03:43 57 12/06/19 01:40 58 20 40 12/06/19 00:00 40 12/06/19 00:00 Mechanical Ventilator 12/06/19 00:00 97.5 59 20 139/66 (90) 96 12/05/19 23:53 62 12/05/19 23:42 63 23 40 12/05/19 23:22 139/66 12/05/19 21:45 60 20 40 12/05/19 20:24 54 143/67 12/05/19 20:00 97.7 54 20 143/67 (92) 96 12/05/19 20:00 40 12/05/19 20:00 Mechanical Ventilator 12/05/19 19:54 56 20 40 12/05/19 19:37 56 12/05/19 17:20 154/67 12/05/19 17:00 58 20 40 12/05/19 16:00 54 12/05/19 16:00 40 12/05/19 16:00 Mechanical Ventilator 12/05/19 16:00 97.9 59 20 154/67 (96) 95 12/05/19 15:00 61 23 40 12/05/19 13:10 55 22 40 12/05/19 12:40 139/61 12/05/19 12:00 Mechanical Ventilator 12/05/19 12:00 40 12/05/19 12:00 55 12/05/19 11:59 97.3 56 19 139/61 (87) 93 I&O Intake and Output 12/05/19 12/06/19 19:00 07:00 Intake Total 1725 ml 1398 ml Output Total 500 ml 650 ml Balance 1225 ml 748 ml Intake Free Water 170 ml 50 ml IV Total 1195 ml 988 ml Tube Feeding 360 ml 360 ml Output Urine Total 500 ml 650 ml # Bowel Movements 3 1 Dressing: saturated Cardiovascular: RSR Respiratory: decreased breath sounds Abdomen: soft, non-tender, present bowel sounds Extremities: no edema, no tenderness, no cyanosis Laboratory Tests Test 12/06/19 02:45 White Blood Count 6.4 K/UL (4.8-10.8) Red Blood Count 3.01 M/UL (4.20-5.40) L Hemoglobin 8.5 G/DL (12.0-16.0) L Hematocrit 26.5 % (37.0-47.0) L Mean Corpuscular Volume 88 FL (80-99) Mean Corpuscular Hemoglobin 28.4 PG (27.0-31.0) Mean Corpuscular Hemoglobin Concent 32.2 G/DL (32.0-36.0) Red Cell Distribution Width 14.3 % (11.6-14.8) Platelet Count 349 K/UL (150-450) Mean Platelet Volume 5.0 FL (6.5-10.1) L Neutrophils (%) (Auto) 63.4 % (45.0-75.0) Lymphocytes (%) (Auto) 26.1 % (20.0-45.0) Monocytes (%) (Auto) 5.3 % (1.0-10.0) Eosinophils (%) (Auto) 4.9 % (0.0-3.0) H Basophils (%) (Auto) 0.4 % (0.0-2.0) Sodium Level 137 MMOL/L (136-145) Potassium Level 3.3 MMOL/L (3.5-5.1) L Chloride Level 99 MMOL/L (98-107) Carbon Dioxide Level 24 MMOL/L (21-32) Blood Urea Nitrogen 125 mg/dL (7-18) H Creatinine 3.5 MG/DL (0.55-1.30) H Estimat Glomerular Filtration Rate 14.0 mL/min (>60) Glucose Level 122 MG/DL (74-106) H Uric Acid 7.5 MG/DL (2.6-7.2) H Calcium Level 7.1 MG/DL (8.5-10.1) L Phosphorus Level 4.8 MG/DL (2.5-4.9) Magnesium Level 3.0 MG/DL (1.8-2.4) H Total Bilirubin 0.3 MG/DL (0.2-1.0) Aspartate Amino Transf (AST/SGOT) 32 U/L (15-37) Alanine Aminotransferase (ALT/SGPT) 8 U/L (12-78) L Alkaline Phosphatase 207 U/L (46-116) H C-Reactive Protein, Quantitative 5.0 mg/dL (0.00-0.90) H Pro-B-Type Natriuretic Peptide > 14120 pg/mL (0-125) H Total Protein 5.4 G/DL (6.4-8.2) L Albumin 2.1 G/DL (3.4-5.0) L Globulin 3.3 g/dL Albumin/Globulin Ratio 0.6 (1.0-2.7) L Lipase 886 U/L (73-393) H Plan Problems: (1) Dehydration (2) Acidosis (3) Anemia (4) Depression (5) Pancreatitis Assessment & Plan: 49F leukocytosis, elevated lip, lft's noted septic. work up ongoing npo iv fluids iv abx imaging ordered lipase worsening npo pending CT panc lip / jeanne improved diet as tolerated improving DAILY ESTIMATED NEEDS: Needs based on Critical care, wound, 56.8kg 28-33 kcals/kg [id number] total kcals 1.25-2 g protein/kg 71-114 g total protein Fluid per MD NUTRITION DIAGNOSIS: * Swallowing difficulty R/T dysphagia, respiratory status as evidenced by vent dep via trach, GT Dep. * Increase kcal and pro needs r/t wound healing and wasting as evidenced by stage 4 sacral wound. CURRENT TF:Nepro @ 40ml/hr x 20 hrs ENTERAL NUTRITION RECOMMENDATIONS: Nepro @ 45ml/hr x 20 hrs to provide 900ml, 1620kcal, 73g prot, 654ml free water * Increase TF to goal of 45ml/hr x20 hrs to better meet est needs * Water flush per MD * HOB over 30 degrees ADDITIONAL RECOMMENDATIONS: * Per SNF: HT=63", NJ=618pyf -> rec calibrated bedscale wt (Bed reads 79.4kg) * Rec TF increase as above to better meet est needs * F/up w/ H&P * WC-> continue Vit C, ZnSO4, Nephrovite Add FRANKLIN in 4oz BID for wound care Lung bases: See below. Pleural space: Bilateral moderate low-attenuation, partially loculated pleural effusions with extensive passive atelectasis; correlate to exclude superimposed aspiration or pneumonia. Liver: Ill-defined right hepatic lobe. 2.9 cm hypodensity not well evaluated on this study. Gallbladder and bile ducts: Unremarkable. No calcified stones. No ductal dilation. Pancreas: Unremarkable. No ductal dilation. Spleen: Unremarkable. No splenomegaly. Adrenals: Unremarkable. No mass. Kidneys and ureters: Left nephroureteral stent in the decompressed left, atrophic renal collecting system. No evident urolithiasis. No hydronephrosis. Stomach and bowel: Unremarkable. No obstruction. No mucosal thickening. Intraperitoneal space: Moderate nonloculated ascites. No free air. Bones/joints: Potentially chronic appearing right intertrochanteric hip fracture. Possible sacral decubitus ulcer, recommend direct visualization. No dislocation. Soft tissues: Severe anasarca. Incompletely evaluated chronic aortic dissection not well seen on this study due to lack of IV contrast and severe anasarca. Vasculature: Descending thoracic aortic ectasia 4 cm diameter above the hiatus. No abdominal aortic aneurysm. Lymph nodes: Unremarkable. No enlarged lymph nodes. Tubes, lines and devices: Percutaneous gastrostomy tube. Norman catheter in decompressed urinary bladder. IMPRESSION: 1. Study substantially limited due to lack of IV contrast and severe anasarca and moderate nonloculated ascites. 2. Left nephroureteral stent in the decompressed left, atrophic renal collecting system. 3. No evident urolithiasis. 4. Incompletely evaluated chronic aortic dissection not well seen on this study due to lack of IV contrast and severe anasarca. 5. Bilateral moderate low-attenuation, partially loculated pleural effusions with extensive passive atelectasis; correlate to exclude superimposed aspiration or pneumonia. 6. Percutaneous gastrostomy tube. 7. Norman catheter in decompressed urinary bladder. 8. Likely chronic appearing right intertrochanteric hip fracture. 9. Possible sacral decubitus ulcer, recommend direct visualization. (6) Pleural effusion (7) Renal failure (8) Respiratory failure (9) Schizophrenia (10) Hypoxia (11) Sepsis (12) UTI (urinary tract infection) (13) Pneumonia (14) ARF (acute renal failure) (15) NSTEMI (non-ST elevated myocardial infarction) (16) Tracheostomy in place (17) Feeding by G-tube (18) JAVIER (acute kidney injury) (19) Acute encephalopathy (20) Sacral decubitus ulcer, stage IV Assessment & Plan: Pt presented on admission with Full thickness stage 4 Sacral Pressure injury which extends into R gluteal cheek. Base of wound is granular with bone exposure at base of sacrococcygeal. Pt presented on admission with tracheostomy, GT, Full Thickness Pressure Injury Sacrococcygeal.Base of wound is 40% soft necrosis, 60% noni with undermined borders(L)5.8cm x (W)5.5cm x (D)1.5cm, undermining clockwise 10-1 by 2.7cm @12o'clock.(+) Epibole along edges with scattered slough. Small area that is purple and indurated noted clockwise @7-8o'clock along borders.Small amt serous exudate noted.Mild odor noted. hyperpigmentation periwound. At L ischium are two areas of dry pink epithelial with surrounding hyperpigmentation. Both heels are boggy with [id number] erythema. Tx.Plan: Cleanse sacral wound with Saline. Loosely pack with Hydrogel impregnated kerlix. Apply Moisture Barrier Paste periwound. Cover with Optifoam drsg Daily and prn. Apply Cavilon Skin Barrier to both heels and malleoli. Cover eachsite with Optifoam drsgs. Change every 7 days and prn. Reposition at least every 2hours or as tolerated. Off-load heels with pillow. APM/Maxwell Mattress overlay. (21) Chronic respiratory failure (22) Hypokalemia (23) Ascites (24) Bacteremia (25) Hypernatremia (26) Proteinuria (27) Electrolyte imbalance (28) Pacemaker (29) ACS (acute coronary syndrome) (30) Aortic dissection, thoracic (31) Respiratory failure, acute and chronic (32) JAVIER (acute kidney injury) (33) Abrasion of lip, initial encounter (34) COPD with exacerbation (35) Elevated alkaline phosphatase level (36) Renal failure (ARF), acute on chronic (37) HCAP (healthcare-associated pneumonia) (38) Lane Alexis Dec 06, 2019 11:30
--- NOTE | 2019-12-06 11:43 | Pulmonology Progress Note ---
Subjective ROS Limited/Unobtainable: No Interval Events: None new Constitutional: Reports: no symptoms HEENT: Repors: no symptoms Respiratory: Reports: no symptoms Cardiovascular: Reports: no symptoms Gastrointestinal/Abdominal: Reports: no symptoms Allergies: Coded Allergies: No Known Allergies (Unverified , 10/10/17) All Systems: reviewed and negative except above Objective Last 24 Hour Vital Signs Date Time Temp Pulse Resp B/P (MAP) Pulse Ox O2 Delivery O2 Flow Rate FiO2 12/06/19 11:00 55 20 40 12/06/19 09:44 97.8 12/06/19 09:15 61 149/81 12/06/19 09:14 61 149/81 12/06/19 09:00 61 20 40 12/06/19 08:00 40 12/06/19 08:00 97.8 61 18 150/67 (94) 100 12/06/19 08:00 Mechanical Ventilator 12/06/19 07:47 60 12/06/19 07:15 61 22 40 12/06/19 05:12 60 20 40 12/06/19 04:00 97.5 58 22 148/62 (90) 100 12/06/19 04:00 40 12/06/19 04:00 Mechanical Ventilator 12/06/19 03:45 58 20 40 12/06/19 03:43 57 12/06/19 01:40 58 20 40 12/06/19 00:00 40 12/06/19 00:00 Mechanical Ventilator 12/06/19 00:00 97.5 59 20 139/66 (90) 96 12/05/19 23:53 62 12/05/19 23:42 63 23 40 12/05/19 23:22 139/66 12/05/19 21:45 60 20 40 12/05/19 20:24 54 143/67 12/05/19 20:00 97.7 54 20 143/67 (92) 96 12/05/19 20:00 40 12/05/19 20:00 Mechanical Ventilator 12/05/19 19:54 56 20 40 12/05/19 19:37 56 12/05/19 17:20 154/67 12/05/19 17:00 58 20 40 12/05/19 16:00 54 12/05/19 16:00 40 12/05/19 16:00 Mechanical Ventilator 12/05/19 16:00 97.9 59 20 154/67 (96) 95 12/05/19 15:00 61 23 40 12/05/19 13:10 55 22 40 12/05/19 12:40 139/61 12/05/19 12:00 Mechanical Ventilator 12/05/19 12:00 40 12/05/19 12:00 55 12/05/19 11:59 97.3 56 19 139/61 (87) 93 Intake and Output 12/05/19 12/06/19 19:00 07:00 Intake Total 1725 ml 1398 ml Output Total 500 ml 650 ml Balance 1225 ml 748 ml Intake Free Water 170 ml 50 ml IV Total 1195 ml 988 ml Tube Feeding 360 ml 360 ml Output Urine Total 500 ml 650 ml # Bowel Movements 3 1 General Appearance: no acute distress HEENT: normocephalic, status post trach Respiratory: chest wall non-tender, lungs clear Cardiovascular: normal peripheral pulses Abdomen: normal bowel sounds Laboratory Tests 12/06/19 02:45: White Blood Count 6.4, Red Blood Count 3.01L, Hemoglobin 8.5L, Hematocrit 26.5L, Mean Corpuscular Volume 88, Mean Corpuscular Hemoglobin 28.4, Mean Corpuscular Hemoglobin Concent 32.2, Red Cell Distribution Width 14.3, Platelet Count 349, Mean Platelet Volume 5.0L, Neutrophils (%) (Auto) 63.4, Lymphocytes (%) (Auto) 26.1, Monocytes (%) (Auto) 5.3, Eosinophils (%) (Auto) 4.9H, Basophils (%) (Auto) 0.4, Sodium Level 137, Potassium Level 3.3L, Chloride Level 99, Carbon Dioxide Level 24, Blood Urea Nitrogen 125H, Creatinine 3.5H, Estimat Glomerular Filtration Rate 14.0, Glucose Level 122H, Uric Acid 7.5H, Calcium Level 7.1L, Phosphorus Level 4.8, Magnesium Level 3.0H, Total Bilirubin 0.3, Aspartate Amino Transf (AST/SGOT) 32, Alanine Aminotransferase (ALT/SGPT) 8L, Alkaline Phosphatase 207H, C-Reactive Protein, Quantitative 5.0H, Pro-B-Type Natriuretic Peptide > 44104V, Total Protein 5.4L, Albumin 2.1L, Globulin 3.3, Albu min/Globulin Ratio 0.6L, Lipase 886H Current Medications Medications (Trade) Dose Ordered Sig/Penny Route PRN Reason Start Time Stop Time Status Last Admin Dose Admin Acetaminophen (Tylenol) 650 mg Q4H PRN GT Temp >100.5 11/29/19 04:30 12/29/19 04:29 12/06/19 09:14 Acetaminophen/ Hydrocodone Bitart ([place] 10/325) 1 tab Q4H PRN GT For moderate pain 11/29/19 15:30 12/06/19 15:29 Amlodipine Besylate (Norvasc) 5 mg DAILY GT 12/06/19 09:00 01/05/20 08:59 12/06/19 09:15 Ascorbic Acid (Vitamin C) 500 mg DAILY GT 11/29/19 09:00 12/29/19 08:59 12/06/19 09:14 Clonidine HCl (Catapres TTS-1) 1 patch ONCE A WEEK TDERMAL 12/03/19 09:00 03/02/20 08:59 12/03/19 09:10 Clotrimazole (Lotrimin) 1 applic THREE TIMES A DAY TOPIC 12/01/19 13:00 02/29/20 12:59 12/06/19 09:15 Epoetin Gelacio (Epoetin Gelacio-EPBX(NON ESRD)) 10,000 unit MON-MON-MON SUBQ 11/29/19 21:00 02/27/20 20:59 12/04/19 20:30 Gentamicin Protocol (Gentamicin pharmacy to dose) 1 ea DAILY PRN MISC Per rx protocol 12/02/19 18:00 01/01/20 17:59 Heparin Sodium (Porcine) (Heparin 5000 units/ml) 5,000 units EVERY 12 HOURS SUBQ 11/29/19 09:00 01/13/20 08:59 12/01/19 20:58 Lansoprazole (Prevacid) 30 mg DAILY GT 12/01/19 12:00 12/31/19 11:59 12/06/19 09:14 Meropenem 500 mg/ Sodium Chloride 55 ml @ 110 mls/hr Q12HR@0300,1500 IVPB 12/05/19 15:00 12/08/19 16:00 12/06/19 03:01 Metoclopramide HCl (Reglan) 10 mg Q6H IVP 12/04/19 10:00 01/03/20 09:59 12/06/19 09:15 Metoprolol Tartrate (Lopressor) 12.5 mg Q12HR ORAL 12/03/19 21:00 03/02/20 08:59 12/06/19 09:14 Polyethylene Glycol (Miralax) 17 gm BEDTIME GT 11/29/19 21:00 12/29/19 20:59 12/05/19 20:31 Sodium Bicarbonate 100 ml/Dextrose 1,100 ml @ 80 mls/hr [id number] IV 12/03/19 21:00 01/02/20 20:59 12/06/19 03:01 Vitamin B Complex/ Vit C/Folic Acid (Nephrovite) 1 tab DAILY GT 11/29/19 09:00 12/29/19 08:59 12/06/19 09:14 Zinc Sulfate (Zinc Sulfate) 220 mg DAILY GT 11/29/19 09:00 02/27/20 08:59 12/06/19 09:14 Assessment/Plan Assessment/Plan Assessment: COVID19 neg x1 Sepsis U TI Pl effusion PNA Low grade fever Leukocytosis, Acute on chronic hypoxic resp failure JAVIER on CKD- hx of Recent MDR PnA, sp rx H/o PPM site (pocket) infection and pocket abscess 2ry to S. epi-11/2018, sp >6weeks IV vancomycin CAD s/p CABG GERD/gastritis Afib HTN Dysphagia sp GT Aortic dissection s/p repair 2017, S/p PPM Parkinson's Disease Schizophrenia Anxiety COPD Chronic resp failure s/p trach Hx of tracheal bleeding [place] resident ([facility]) Plan: -Continue empiric abx -Monitor CBC/CMP, temperatures -PEG/trach care -aspiration precautions -COVID19 isolation and testing; -s/p thoracentesis- sent fluid analysis and culture - Will wean FiO2 down; currently on 40% FiO2 Dc planning Elijah Stephen MD Dec 06, 2019 11:43
--- NOTE | 2019-12-06 11:47 | Nephrology Progress Note ---
Assessment/Plan Problem List: (1) JAVIER (acute kidney injury) (2) Renal failure (ARF), acute on chronic (3) Feeding by G-tube (4) Tracheostomy in place (5) Electrolyte imbalance (6) Anemia (7) Respiratory failure, acute and chronic (8) Elevated lipase Assessment Patient is presented with sepsis and pneumonia and UTI, hypoxia Patient has acute renal failure, possible underlying chronic kidney failure Severe anemia Electrolyte imbalances: Hyponatremia, hypo-kalemia Chronic respiratory failure, COPD exacerbation Has sacral decubitus ulcer stage IV PEG Plan December 05: Renal parameters unchanged. Discussed with ERASMO Echevarria. Electrolyte abnormalities addressed. Continue to monitor renal parameters. Will discuss with PMD possible need for dialysis trial. Serum lipase decreasing. December 04: Patient started on IV fluid with sodium bicarb by Dr. Dong. So at this time we will hold the diuretics. Will follow-up renal parameters and electrolytes. Continue rest of management. Continue monitor lipase level December 03: No chemistry panel done today. Appears clinically stable. Will order renal parameters and lipase panel for tomorrow. Continue per consultants. Patient remains full code. December 02: Labs reviewed. Serum lipase decreasing. On 20 cc an hour Nepro via GT tube. Renal parameters unchanged. Urine output well maintained. Continue per consultants. White blood cells 17,000, hemoglobin 8.9. December 01: Lab reviewed. Hemoglobin higher. Serum creatinine 3.4. Creatinine clearance calculated . Serum lipase lowering. Continue per current management. November 30: Patient transfused. Hemoglobin higher. Serum sodium lower. Renal parameters unchanged. Trial of 3% saline. Continue monitor renal parameters. May require dialysis treatment depending on the how her condition evolves. Previously Consider transfusion Urine studies Adjust blood pressure medication Albumin bolus Norman catheter, intake and output Monitor renal parameters Avoid nephrotoxic's Antibiotics Per orders Subjective ROS Limited/Unobtainable: Yes Objective Objective Last 24 Hour Vital Signs Date Time Temp Pulse Resp B/P (MAP) Pulse Ox O2 Delivery O2 Flow Rate FiO2 12/06/19 11:00 55 20 40 12/06/19 09:44 97.8 12/06/19 09:15 61 149/81 12/06/19 09:14 61 149/81 12/06/19 09:00 61 20 40 12/06/19 08:00 40 12/06/19 08:00 97.8 61 18 150/67 (94) 100 12/06/19 08:00 Mechanical Ventilator 12/06/19 07:47 60 12/06/19 07:15 61 22 40 12/06/19 05:12 60 20 40 12/06/19 04:00 97.5 58 22 148/62 (90) 100 12/06/19 04:00 40 12/06/19 04:00 Mechanical Ventilator 12/06/19 03:45 58 20 40 12/06/19 03:43 57 12/06/19 01:40 58 20 40 12/06/19 00:00 40 12/06/19 00:00 Mechanical Ventilator 12/06/19 00:00 97.5 59 20 139/66 (90) 96 12/05/19 23:53 62 12/05/19 23:42 63 23 40 12/05/19 23:22 139/66 12/05/19 21:45 60 20 40 12/05/19 20:24 54 143/67 12/05/19 20:00 97.7 54 20 143/67 (92) 96 12/05/19 20:00 40 12/05/19 20:00 Mechanical Ventilator 12/05/19 19:54 56 20 40 12/05/19 19:37 56 12/05/19 17:20 154/67 12/05/19 17:00 58 20 40 12/05/19 16:00 54 12/05/19 16:00 40 12/05/19 16:00 Mechanical Ventilator 12/05/19 16:00 97.9 59 20 154/67 (96) 95 12/05/19 15:00 61 23 40 12/05/19 13:10 55 22 40 12/05/19 12:40 139/61 12/05/19 12:00 Mechanical Ventilator 12/05/19 12:00 40 12/05/19 12:00 55 12/05/19 11:59 97.3 56 19 139/61 (87) 93 Intake and Output 12/05/19 12/06/19 19:00 07:00 Intake Total 1725 ml 1398 ml Output Total 500 ml 650 ml Balance 1225 ml 748 ml Intake Free Water 170 ml 50 ml IV Total 1195 ml 988 ml Tube Feeding 360 ml 360 ml Output Urine Total 500 ml 650 ml # Bowel Movements 3 1 Current Medications Medications (Trade) Dose Ordered Sig/Penny Route PRN Reason Start Time Stop Time Status Last Admin Dose Admin Acetaminophen (Tylenol) 650 mg Q4H PRN GT Temp >100.5 11/29/19 04:30 12/29/19 04:29 12/06/19 09:14 Acetaminophen/ Hydrocodone Bitart ([place] 10) 1 tab Q4H PRN GT For moderate pain 11/29/19 15:30 12/06/19 15:29 Amlodipine Besylate (Norvasc) 5 mg DAILY GT 12/06/19 09:00 01/05/20 08:59 12/06/19 09:15 Ascorbic Acid (Vitamin C) 500 mg DAILY GT 11/29/19 09:00 12/29/19 08:59 12/06/19 09:14 Clonidine HCl (Catapres TTS-1) 1 patch ONCE A WEEK TDERMAL 12/03/19 09:00 03/02/20 08:59 12/03/19 09:10 Clotrimazole (Lotrimin) 1 applic THREE TIMES A DAY TOPIC 12/01/19 13:00 02/29/20 12:59 12/06/19 09:15 Epoetin Gelacio (Epoetin Gelacio-EPBX(NON ESRD)) 10,000 unit MON-WED-FRI SUBQ 11/29/19 21:00 02/27/20 20:59 12/04/19 20:30 Gentamicin Protocol (Gentamicin pharmacy to dose) 1 ea DAILY PRN MISC Per rx protocol 12/02/19 18:00 01/01/20 17:59 Heparin Sodium (Porcine) (Heparin 5000 units/ml) 5,000 units EVERY 12 HOURS SUBQ 11/29/19 09:00 01/13/20 08:59 12/01/19 20:58 Lansoprazole (Prevacid) 30 mg DAILY GT 12/01/19 12:00 12/31/19 11:59 12/06/19 09:14 Meropenem 500 mg/ Sodium Chloride 55 ml @ 110 mls/hr Q12HR@0300,1500 IVPB 12/05/19 15:00 12/08/19 16:00 12/06/19 03:01 Metoclopramide HCl (Reglan) 10 mg Q6H IVP 12/04/19 10:00 01/03/20 09:59 12/06/19 09:15 Metoprolol Tartrate (Lopressor) 12.5 mg Q12HR ORAL 12/03/19 21:00 03/02/20 08:59 12/06/19 09:14 Polyethylene Glycol (Miralax) 17 gm BEDTIME GT 11/29/19 21:00 12/29/19 20:59 12/05/19 20:31 Sodium Bicarbonate 100 ml/Dextrose 1,100 ml @ 80 mls/hr [id number] IV 12/03/19 21:00 01/02/20 20:59 12/06/19 03:01 Vitamin B Complex/ Vit C/Folic Acid (Nephrovite) 1 tab DAILY GT 11/29/19 09:00 12/29/19 08:59 12/06/19 09:14 Zinc Sulfate (Zinc Sulfate) 220 mg DAILY GT 11/29/19 09:00 02/27/20 08:59 12/06/19 09:14 Laboratory Tests 12/06/19 02:45: White Blood Count 6.4, Red Blood Count 3.01L, Hemoglobin 8.5L, Hematocrit 26.5L, Mean Corpuscular Volume 88, Mean Corpuscular Hemoglobin 28.4, Mean Corpuscular Hemoglobin Concent 32.2, Red Cell Distribution Width 14.3, Platelet Count 349, Mean Platelet Volume 5.0L, Neutrophils (%) (Auto) 63.4, Lymphocytes (%) (Auto) 26.1, Monocytes (%) (Auto) 5.3, Eosinophils (%) (Auto) 4.9H, Basophils (%) (Auto) 0.4, Sodium Level 137, Potassium Level 3.3L, Chloride Level 99, Carbon Dioxide Level 24, Blood Urea Nitrogen 125H, Creatinine 3.5H, Estimat Glomerular Filtration Rate 14.0, Glucose Level 122H, Uric Acid 7.5H, Calcium Level 7.1L, Phosphorus Level 4.8, Magnesium Level 3.0H, Total Bilirubin 0.3, Aspartate Amino Transf (AST/SGOT) 32, Alanine Aminotransferase (ALT/SGPT) 8L, Alkaline Phosphatase 207H, C-Reactive Protein, Quantitative 5.0H, Pro-B-Type Natriuretic Peptide > 13487U, Total Protein 5.4L, Albumin 2.1L, Globulin 3.3, Albumin/Globulin Ratio 0.6L, Lipase 886H Height (Feet): 5 Height (Inches): 4.00 Weight (Pounds): 150 General Appearance: no apparent distress Cardiovascular: normal rate Respiratory/Chest: decreased breath sounds Abdomen: distended Johnny Houston MD Dec 06, 2019 11:47
[2019-12-06 12:00] VITALS: BP 143/63
--- NOTE | 2019-12-06 13:10 | Infectious Diseases Prog Note ---
Assessment/Plan Assessment: COVID19 neg x2 (11/27 & rapid COVID PCR neg) Sepsis UTI -11/27 u/a wbc 30-40, nit neg, leuk +3; ucx ESBL P. mirablis, ESBL M. morganii Pl effusion, transudate - 11/28 Sp [place] (w: 169, PMN: 2%, L: 49% , LDH: 57, prot 2.5); cx Neg PNA -12/04 CXR Stable moderate left pleural effusion with associated airspace consolidation. Increasing right basilar airspace opacity which could represent developing consolidation versus worsening atelectasis. -11/28 CXR: Resolved right pleural effusion, status post thoracentesis. No radiographically evident complication Sp cx ESBL P. mirablis (S Meropenem, Zosyn), MDR PsA (S Gentamycin) Influenza ag neg -11/27 CXR: Increasing hazy right lung diffuse opacity. Suspect at least in part due to overlying soft tissue, but developing infiltrate also possible. Persistent and slightly increased left retrocardiac consolidation and slightly increased left pleural effusion -11/27 Bcx NTD -legionella ag urine, M. IgM neg Fever , SP Leukocytosis, SP -12/02 CT abd/p wo: Study substantially limited due to lack of IV contrast and severe anasarca and moderate nonloculated ascites. Left nephroureteral stent in the decompressed left, atrophic renal collecting system. No evident urolithiasis. Incompletely evaluated chronic aortic dissection not well seen on this study due to lack of IV contrast and severe anasarca. Bilateral moderate low-attenuation, partially loculated pleural effusions with extensive passive atelectasis; correlate to exclude superimposed aspiration or pneumonia.Percut aneous gastrostomy tube. Norman catheter in decompressed urinary bladder. Likely chronic appearing right intertrochanteric hip fracture. Possible sacral decubitus ulcer, recommend direct visualization. Acute on chronic hypoxic resp failure JAVIER on CKD; improving- on previous admission Sep-Oct 2019 required HD for short period hx of Recent MDR PnA, sp rx 10/15/19 sp cx ESBL P. mirabilis, MDR P.a. ( S only to Gent) 09/22 Resp cx + MDR PsA (S-gent; I-colistin; R-levofloxacin, Zosyn, angelo) 09/16/19 Sp cx ESBL P. mirablis hx of recent UTI 09/15/19 u/a wbc tnct, nit neg, leuk +3; ucx >100k MDR P. stuarti (S Ceftriaxone, Meropenem) 10/07 u/a wbc tnct, nit neg, leuk ; ucx >100k VRE 10/15/19 u/a wbc tnct; ucx >100k ESBL P. stuarti (S ertapenem, aztreonam) H/o PPM site (pocket) infection and pocket abscess 2ry to S. epi-11/2018, sp >6weeks IV vancomycin 11/27 SP ABBIE: no evidence for vegetation on any of the valves 11/26/18 SP PPM removal: OR findings:The fibrous capsule enclosing the generator was then opened and there was a [id number] amount of yellowish fluid drainage. The generator was then removed.Atrial and ventricular leads were detached. The necrotic tissue of the pocket was then removed and the pocket was flushed with an antibiotic solution. Capsule, wound tissue and lead tip cx: Neg 2d echo: no vegetation seen US chest: 4.6 x 3.4 x 0.9 cm hypoechoic/anechoic area overlying left chest pacemaker power pack. This could represent either a discrete fluid collection or a focal area of very edematous tissue. Infected fluid pocket also possible. 11/18 Bcx 3/4 S. epi; 11/20 Bcx neg; 11/24 Bcx Neg; 11/27 Bcx Neg CAD s/p CABG GERD/gastritis Afib HTN Dysphagia sp GT Aortic dissection s/p repair 2017, S/p PPM Parkinson's Disease Schizophrenia Anxiety COPD Chronic resp failure s/p trach Hx of tracheal bleeding [place] resident ([facility]) VRE and MRSA colonized Plan: -Meropenem # 8/10 and IV Gentamycin #5/7-10 for MDR PsA -12/01 SP IV Vancomycin #5 - 11/28 Sp Cefepime #2 and IV Gentamycin x1 -f/u cx -Monitor CBC/CMP, temperatures -PEG/trach care -aspiration precautions -COVID19 neg x2 Subjective Allergies: Coded Allergies: No Known Allergies (Unverified , 10/10/17) afebrile Fio2 40% no leukocytosis Objective Last 24 Hour Vital Signs Date Time Temp Pulse Resp B/P (MAP) Pulse Ox O2 Delivery O2 Flow Rate FiO2 12/06/19 12:00 Mechanical Ventilator 12/06/19 12:00 40 12/06/19 12:00 97.9 64 18 143/63 (89) 97 12/06/19 11:00 55 20 40 12/06/19 09:44 97.8 12/06/19 09:15 61 149/81 12/06/19 09:14 61 149/81 12/06/19 09:00 61 20 40 12/06/19 08:00 40 12/06/19 08:00 97.8 61 18 150/67 (94) 100 12/06/19 08:00 Mechanical Ventilator 12/06/19 07:47 60 12/06/19 07:15 61 22 40 12/06/19 05:12 60 20 40 12/06/19 04:00 97.5 58 22 148/62 (90) 100 12/06/19 04:00 40 12/06/19 04:00 Mechanical Ventilator 12/06/19 03:45 58 20 40 12/06/19 03:43 57 12/06/19 01:40 58 20 40 12/06/19 00:00 40 12/06/19 00:00 Mechanical Ventilator 12/06/19 00:00 97.5 59 20 139/66 (90) 96 12/05/19 23:53 62 12/05/19 23:42 63 23 40 12/05/19 23:22 139/66 12/05/19 21:45 60 20 40 12/05/19 20:24 54 143/67 12/05/19 20:00 97.7 54 20 143/67 (92) 96 12/05/19 20:00 40 12/05/19 20:00 Mechanical Ventilator 12/05/19 19:54 56 20 40 12/05/19 19:37 56 12/05/19 17:20 154/67 12/05/19 17:00 58 20 40 12/05/19 16:00 54 12/05/19 16:00 40 12/05/19 16:00 Mechanical Ventilator 12/05/19 16:00 97.9 59 20 154/67 (96) 95 12/05/19 15:00 61 23 40 12/05/19 13:10 55 22 40 Height (Feet): 5 Height (Inches): 4.00 Weight (Pounds): 150 General Appearance: no acute distress HEENT: atraumatic, trach in place Respiratory/Chest: no respiratory distress Cardiovascular: regular rhythm Laboratory Tests Test 12/06/19 02:45 White Blood Count 6.4 K/UL (4.8-10.8) Red Blood Count 3.01 M/UL (4.20-5.40) L Hemoglobin 8.5 G/DL (12.0-16.0) L Hematocrit 26.5 % (37.0-47.0) L Mean Corpuscular Volume 88 FL (80-99) Mean Corpuscular Hemoglobin 28.4 PG (27.0-31.0) Mean Corpuscular Hemoglobin Concent 32.2 G/DL (32.0-36.0) Red Cell Distribution Width 14.3 % (11.6-14.8) Platelet Count 349 K/UL (150-450) Mean Platelet Volume 5.0 FL (6.5-10.1) L Neutrophils (%) (Auto) 63.4 % (45.0-75.0) Lymphocytes (%) (Auto) 26.1 % (20.0-45.0) Monocytes (%) (Auto) 5.3 % (1.0-10.0) Eosinophils (%) (Auto) 4.9 % (0.0-3.0) H Basophils (%) (Auto) 0.4 % (0.0-2.0) Sodium Level 137 MMOL/L (136-145) Potassium Level 3.3 MMOL/L (3.5-5.1) L Chloride Level 99 MMOL/L (98-107) Carbon Dioxide Level 24 MMOL/L (21-32) Blood Urea Nitrogen 125 mg/dL (7-18) H Creatinine 3.5 MG/DL (0.55-1.30) H Estimat Glomerular Filtration Rate 14.0 mL/min (>60) Glucose Level 122 MG/DL (74-106) H Uric Acid 7.5 MG/DL (2.6-7.2) H Calcium Level 7.1 MG/DL (8.5-10.1) L Phosphorus Level 4.8 MG/DL (2.5-4.9) Magnesium Level 3.0 MG/DL (1.8-2.4) H Total Bilirubin 0.3 MG/DL (0.2-1.0) Aspartate Amino Transf (AST/SGOT) 32 U/L (15-37) Alanine Aminotransferase (ALT/SGPT) 8 U/L (12-78) L Alkaline Phosphatase 207 U/L (46-116) H C-Reactive Protein, Quantitative 5.0 mg/dL (0.00-0.90) H Pro-B-Type Natriuretic Peptide > 75494 pg/mL (0-125) H Total Protein 5.4 G/DL (6.4-8.2) L Albumin 2.1 G/DL (3.4-5.0) L Globulin 3.3 g/dL Albumin/Globulin Ratio 0.6 (1.0-2.7) L Lipase 886 U/L (73-393) H Current Medications Medications (Trade) Dose Ordered Sig/Penny Route PRN Reason Start Time Stop Time Status Last Admin Dose Admin Acetaminophen (Tylenol) 650 mg Q4H PRN GT Temp >100.5 11/29/19 04:30 12/29/19 04:29 12/06/19 09:14 Acetaminophen/ Hydrocodone Bitart ([place] 10/325) 1 tab Q4H PRN GT For moderate pain 11/29/19 15:30 12/06/19 15:29 Amlodipine Besylate (Norvasc) 5 mg DAILY GT 12/06/19 09:00 01/05/20 08:59 12/06/19 09:15 Ascorbic Acid (Vitamin C) 500 mg DAILY GT 11/29/19 09:00 12/29/19 08:59 12/06/19 09:14 Clonidine HCl (Catapres TTS-1) 1 patch ONCE A WEEK TDERMAL 12/03/19 09:00 03/02/20 08:59 12/03/19 09:10 Clotrimazole (Lotrimin) 1 applic THREE TIMES A DAY TOPIC 12/01/19 13:00 02/29/20 12:59 12/06/19 09:15 Epoetin Gelacio (Epoetin Gelacio-EPBX(NON ESRD)) 10,000 unit MON-WED-FRI SUBQ 11/29/19 21:00 02/27/20 20:59 12/04/19 20:30 Gentamicin Protocol (Gentamicin pharmacy to dose) 1 ea DAILY PRN MISC Per rx protocol 12/02/19 18:00 01/01/20 17:59 Heparin Sodium (Porcine) (Heparin 5000 units/ml) 5,000 units EVERY 12 HOURS SUBQ 11/29/19 09:00 01/13/20 08:59 12/01/19 20:58 Lansoprazole (Prevacid) 30 mg DAILY GT 12/01/19 12:00 12/31/19 11:59 12/06/19 09:14 Meropenem 500 mg/ Sodium Chloride 55 ml @ 110 mls/hr Q12HR@0300,1500 IVPB 12/05/19 15:00 12/08/19 16:00 12/06/19 03:01 Metoclopramide HCl (Reglan) 10 mg Q6H IVP 12/04/19 10:00 01/03/20 09:59 12/06/19 09:15 Metoprolol Tartrate (Lopressor) 12.5 mg Q12HR ORAL 12/03/19 21:00 03/02/20 08:59 12/06/19 09:14 Polyethylene Glycol (Miralax) 17 gm BEDTIME GT 11/29/19 21:00 12/29/19 20:59 12/05/19 20:31 Sodium Bicarbonate 100 ml/Dextrose 1,100 ml @ 80 mls/hr [id number] IV 12/03/19 21:00 01/02/20 20:59 12/06/19 03:01 Vitamin B Complex/ Vit C/Folic Acid (Nephrovite) 1 tab DAILY GT 11/29/19 09:00 12/29/19 08:59 12/06/19 09:14 Zinc Sulfate (Zinc Sulfate) 220 mg DAILY GT 11/29/19 09:00 02/27/20 08:59 12/06/19 09:14 Doreen Nino M.D. Dec 06, 2019 13:10
--- NOTE | 2019-12-06 13:51 | General Progress Note ---
Subjective Constitutional: Reports: diaphoresis, weakness HEENT: Reports: no symptoms Respiratory: Reports: orthopnea Gastrointestinal/Abdominal: Reports: no symptoms Neurologic/Psychiatric: Reports: weakness, other - Patient is awake with eye contact which was not seen with air in the last several days she is attempt to talk her facial muscles have synchronized [place] Hematologic/Lymphatic: Reports: no symptoms Allergies: Coded Allergies: No Known Allergies (Unverified , 10/10/17) Objective Last 24 Hour Vital Signs Date Time Temp Pulse Resp B/P (MAP) Pulse Ox O2 Delivery O2 Flow Rate FiO2 12/06/19 12:55 73 22 40 12/06/19 12:00 Mechanical Ventilator 12/06/19 12:00 40 12/06/19 12:00 97.9 64 18 143/63 (89) 97 12/06/19 11:00 55 20 40 12/06/19 09:44 97.8 12/06/19 09:15 61 149/81 12/06/19 09:14 61 149/81 12/06/19 09:00 61 20 40 12/06/19 08:00 40 12/06/19 08:00 97.8 61 18 150/67 (94) 100 12/06/19 08:00 Mechanical Ventilator 12/06/19 07:47 60 12/06/19 07:15 61 22 40 12/06/19 05:12 60 20 40 12/06/19 04:00 97.5 58 22 148/62 (90) 100 12/06/19 04:00 40 12/06/19 04:00 Mechanical Ventilator 12/06/19 03:45 58 20 40 12/06/19 03:43 57 12/06/19 01:40 58 20 40 12/06/19 00:00 40 12/06/19 00:00 Mechanical Ventilator 12/06/19 00:00 97.5 59 20 139/66 (90) 96 12/05/19 23:53 62 12/05/19 23:42 63 23 40 12/05/19 23:22 139/66 12/05/19 21:45 60 20 40 12/05/19 20:24 54 143/67 12/05/19 20:00 97.7 54 20 143/67 (92) 96 12/05/19 20:00 40 12/05/19 20:00 Mechanical Ventilator 12/05/19 19:54 56 20 40 12/05/19 19:37 56 12/05/19 17:20 154/67 12/05/19 17:00 58 20 40 12/05/19 16:00 54 12/05/19 16:00 40 12/05/19 16:00 Mechanical Ventilator 12/05/19 16:00 97.9 59 20 154/67 (96) 95 12/05/19 15:00 61 23 40 Intake and Output 12/05/19 12/06/19 18:59 06:59 Intake Total 1725 ml 1398 ml Output Total 500 ml 650 ml Balance 1225 ml 748 ml Intake Free Water 170 ml 50 ml IV Total 1195 ml 988 ml Tube Feeding 360 ml 360 ml Output Urine Total 500 ml 650 ml # Bowel Movements 3 1 Laboratory Tests 12/06/19 02:45: White Blood Count 6.4, Red Blood Count 3.01L, Hemoglobin 8.5L, Hematocrit 26.5L, Mean Corpuscular Volume 88, Mean Corpuscular Hemoglobin 28.4, Mean Corpuscular Hemoglobin Concent 32.2, Red Cell Distribution Width 14.3, Platelet Count 349, Mean Platelet Volume 5.0L, Neutrophils (%) (Auto) 63.4, Lymphocytes (%) (Auto) 26.1, Monocytes (%) (Auto) 5.3, Eosinophils (%) (Auto) 4.9H, Basophils (%) (Auto) 0.4, Sodium Level 137, Potassium Level 3.3L, Chloride Level 99, Carbon Dioxide Level 24, Blood Urea Nitrogen 125H, Creatinine 3.5H, Estimat Glomerular Filtration Rate 14.0, Glucose Level 122H, Uric Acid 7.5H, Calcium Level 7.1L, Phosphorus Level 4.8, Magnesium Level 3.0H, Total Bilirubin 0.3, Aspartate Amino Transf (AST/SGOT) 32, Alanine Aminotransferase (ALT/SGPT) 8L, Alkaline Phosphatase 207H, C-Reactive Protein, Quantitative 5.0H, Pro-B-Type Natriuretic Peptide > 21807N, Total Protein 5.4L, Albumin 2.1L, Globulin 3.3, Albumin/Globulin Ratio 0.6L, Lipase 886H Height (Feet): 5 Height (Inches): 4.00 Weight (Pounds): 150 Assessment/Plan Status Narrative Patient is awake alert with eye contact she has borderline tachycardia intermittently has mild shortness of breath she just came back from CT scan of the brain without contrast her chest x-ray revealed pneumonia pleural effusion possibility of a second pneumonia on the other side stool for occult blood is positive even though H&H remained stable she did not require any narcotics now for many days which is unusual for a patient that was on high-dose narcotic for a long time therefore the facial tremor may be a result of Dilaudid withdrawal Ativan 0.5 mg IV will be given in effect patient verbal expression and facial t remulous will be assess Repeat laboratory tests and repeat chest x-ray will be done in a.m. we are waiting for the results of the CT scan Lucas Canales MD, MD Dec 06, 2019 13:51
--- NOTE | 2019-12-06 14:08 | Diagnostic Imaging Report ---
Indication: Altered mental status Technique: Continuous helical CT scanning of the head was performed utilizing automated exposure control without intravenous contrast material. Axial and coronal reconstructions were obtained. Comparison: 10/10/17 CT dose: Total DLP 1085.3 mGycm; CTDI vol 53.4 mGy Findings: There is no acute intracranial hemorrhage, mass effect or cortical edema. There is no shift of the midline structures. The ventricles, cisterns and sulci are within normal limits for age. Minimal periventricular hypoattenuation is seen, a nonspecific finding. Extensive paranasal sinus disease with retention cyst partially visualized within the right maxillary sinus. Soft tissue prominence the posterior aspect of the turbinates also noted in the nasal cavity. This is not evaluated adequately or completely on this study but similar findings noted previously. IMPRESSION: No evidence of acute intracranial hemorrhage, mass effect or cortical edema. Extensive paranasal sinus disease. The CT scanner at [facility] is accredited by the [employer] and the scans are performed using protocols designed to limit radiation exposure to as low as reasonably achievable to attain images of sufficient resolution adequate for diagnostic evaluation.
[2019-12-06] MEDS ORDERED: LORazepam 0.5mg tab GT SCH (14:15)
--- NOTE | 2019-12-06 14:31 | Hematology/Onc Progress Note ---
Assessment/Plan Assessment/Plan Assessment and Recs # Leukocytosis, now with uti, though in past has had pna, pacemaker site infection and bacteremia --> is s/p pm removal and also pocket infection is better --> per cards recs in re to tach/davis --> wbc 29-->16-->17-->7 --> ABX vanc/angelo-->gent/angelo --> ID recs are noted # Anemia of chronic disease due to underlying chronic medical issues, multifactorial --> Anemia workup has been reviewed, cw acd --> No evidence of hemolysis is noted, peripheral smear has been reviewed. --> Hgb goal >7. Transfuse prn. --> Epogen started sq --> Medications have been reviewed --> low threshold for gi evaluation in case has occult + --> hgb 7.1-->7.8-->>>6.7->9.2-->8.9->8.2->8.5 --> 1 unit prbc10/17 --> gi eval as needed # Thrombocytois is likely reactive process, is s/p infection --> plt trend 358-->361->349 --> p smear reviewed # Acute hypoxic respiratory failure s/p intubation 11/23- ?ARDS --> on vent/trach # JAVIER initially >2 --> on ivfs -> may need hd per Dr. [place] # Elevated d-dimer --> venous duplex and v/q scan neg --> negative results # Dysphagia s/p peg --> as per gi # Thoracic aortic dissection s/p repair early 2017 # Psychiatric history on ativan/haldol # [place] resident # Dvt ppx --> heparin sq The timing of this note does not necessarily reflect the time of the patient was seen. Greatly appreciate consultation. Subjective Constitutional: Denies: no symptoms, chills, fever, malaise, weakness, other HEENT: Denies: no symptoms, eye pain, blurred vision, tearing, double vision, e ar pain, ear discharge, nose pain, nose congestion, throat pain, throat swelling, mouth pain, mouth swelling, other Cardiovascular: Denies: no symptoms, chest pain, edema, irregular heart rate, lightheadedness, palpitations, syncope, other Respiratory: Denies: no symptoms, cough, shortness of breath, SOB with excertion, SOB at rest, sputum, wheezing, other Gastrointestinal/Abdominal: Denies: no symptoms, abdomen distended, abdominal pain, black stools, tarry stools, blood in stool, constipated, diarrhea, difficulty swallowing, nausea, poor appetite, poor fluid intake, rectal bleeding, vomiting, other Neurologic/Psychiatric: Denies: no symptoms, anxiety, depressed, emotional problems, headache, numbness, paresthesia, pre-existing deficit, seizure, tingling, tremors, weakness, other Endocrine: Denies: no symptoms, excessive sweating, flushing, intolerance to cold, intolerance to heat, increased hunger, increased thirst, increased urine, unexplained weight gain, unexplained weight loss, other Allergies: Coded Allergies: No Known Allergies (Unverified , 10/10/17) Subjective 12/01 on vent, with gtube and raymond, no bleeding, labs are noted 12/02 labs noted, remains on abx, dw Rn at bedside is on abx, hgb 8.9 12/03 roman Rn in am, with drainage blood from gtube site, and mouth,gi aware 12/04 on vent, hgb 8.2, no bleeding, k was given overnight 12/05 labs reviewed, on vent, no bleeding, gb 8.5, no hemolysis is seen Objective Objective Current Medications Medications (Trade) Dose Ordered Sig/Penny Route PRN Reason Start Time Stop Time Status Last Admin Dose Admin Acetaminophen (Tylenol) 650 mg Q4H PRN GT Temp >100.5 11/29/19 04:30 12/29/19 04:29 12/06/19 09:14 Acetaminophen/ Hydrocodone Bitart (Dutton 10/325) 1 tab Q4H PRN GT For moderate pain 11/29/19 15:30 12/06/19 15:29 Amlodipine Besylate (Norvasc) 5 mg DAILY GT 12/06/19 09:00 01/05/20 08:59 12/06/19 09:15 Ascorbic Acid (Vitamin C) 500 mg DAILY GT 11/29/19 09:00 12/29/19 08:59 12/06/19 09:14 Clonidine HCl (Catapres TTS-1) 1 patch ONCE A WEEK TDERMAL 12/03/19 09:00 03/02/20 08:59 10/20/20 09:10 Clotrimazole (Lotrimin) 1 applic THREE TIMES A DAY TOPIC 12/01/19 13:00 02/29/20 12:59 12/06/19 09:15 Epoetin Gelacio (Epoetin Gelacio-EPBX(NON ESRD)) 10,000 unit MON-WED-FRI SUBQ 11/29/19 21:00 02/27/20 20:59 12/04/19 20:30 Gentamicin Protocol (Gentamicin pharmacy to dose) 1 ea DAILY PRN MISC Per rx protocol 12/02/19 18:00 01/01/20 17:59 Heparin Sodium (Porcine) (Heparin 5000 units/ml) 5,000 units EVERY 12 HOURS SUBQ 11/29/19 09:00 01/13/20 08:59 12/01/19 20:58 Lansoprazole (Prevacid) 30 mg DAILY GT 12/01/19 12:00 12/31/19 11:59 12/06/19 09:14 Lorazepam (Ativan) 0.5 mg ONCE GT 12/06/19 14:15 12/06/19 15:15 Meropenem 500 mg/ Sodium Chloride 55 ml @ 110 mls/hr Q12HR@0300,1500 IVPB 12/05/19 15:00 12/08/19 16:00 12/06/19 03:01 Metoclopramide HCl (Reglan) 10 mg Q6H IVP 12/04/19 10:00 01/03/20 09:59 12/06/19 09:15 Metoprolol Tartrate (Lopressor) 12.5 mg Q12HR ORAL 12/03/19 21:00 03/02/20 08:59 12/06/19 09:14 Polyethylene Glycol (Miralax) 17 gm BEDTIME GT 11/29/19 21:00 12/29/19 20:59 12/05/19 20:31 Sodium Bicarbonate 100 ml/Dextrose 1,100 ml @ 80 mls/hr [id number] IV 12/03/19 21:00 01/02/20 20:59 12/06/19 03:01 Vitamin B Complex/ Vit C/Folic Acid (Nephrovite) 1 tab DAILY GT 11/29/19 09:00 12/29/19 08:59 12/06/19 09:14 Zinc Sulfate (Zinc Sulfate) 220 mg DAILY GT 11/29/19 09:00 02/27/20 08:59 12/06/19 09:14 Last 24 Hour Vital Signs Date Time Temp Pulse Resp B/P (MAP) Pulse Ox O2 Delivery O2 Flow Rate FiO2 12/06/19 12:55 73 22 40 12/06/19 12:00 Mechanical Ventilator 12/06/19 12:00 40 12/06/19 12:00 97.9 64 18 143/63 (89) 97 12/06/19 11:00 55 20 40 12/06/19 09:44 97.8 12/06/19 09:15 61 149/81 12/06/19 09:14 61 149/81 12/06/19 09:00 61 20 40 12/06/19 08:00 40 12/06/19 08:00 97.8 61 18 150/67 (94) 100 12/06/19 08:00 Mechanical Ventilator 12/06/19 07:47 60 12/06/19 07:15 61 22 40 12/06/19 05:12 60 20 40 12/06/19 04:00 97.5 58 22 148/62 (90) 100 12/06/19 04:00 40 12/06/19 04:00 Mechanical Ventilator 12/06/19 03:45 58 20 40 12/06/19 03:43 57 12/06/19 01:40 58 20 40 12/06/19 00:00 40 12/06/19 00:00 Mechanical Ventilator 12/06/19 00:00 97.5 59 20 139/66 (90) 96 12/05/19 23:53 62 12/05/19 23:42 63 23 40 12/05/19 23:22 139/66 12/05/19 21:45 60 20 40 12/05/19 20:24 54 143/67 12/05/19 20:00 97.7 54 20 143/67 (92) 96 12/05/19 20:00 40 12/05/19 20:00 Mechanical Ventilator 12/05/19 19:54 56 20 40 12/05/19 19:37 56 12/05/19 17:20 154/67 12/05/19 17:00 58 20 40 12/05/19 16:00 54 12/05/19 16:00 40 12/05/19 16:00 Mechanical Ventilator 12/05/19 16:00 97.9 59 20 154/67 (96) 95 12/05/19 15:00 61 23 40 12/05/19 13:10 55 22 40 12/05/19 12:40 139/61 12/05/19 12:00 Mechanical Ventilator 12/05/19 12:00 40 12/05/19 12:00 55 12/05/19 11:59 97.3 56 19 139/61 (87) 93 12/05/19 11:10 65 24 40 12/05/19 09:19 66 127/61 12/05/19 09:00 64 25 40 12/05/19 08:00 Mechanical Ventilator 12/05/19 08:00 40 12/05/19 07:50 62 12/05/19 07:28 97.5 58 20 127/61 (83) 94 12/05/19 07:00 64 22 40 12/05/19 05:27 148/59 12/05/19 05:11 55 20 40 12/05/19 04:00 40 12/05/19 04:00 97.9 54 20 140/60 (86) 95 12/05/19 04:00 Mechanical Ventilator 12/05/19 04:00 52 12/05/19 02:55 55 20 40 12/05/19 00:49 60 20 40 12/05/19 00:00 Mechanical Ventilator 12/05/19 00:00 59 12/05/19 00:00 97.7 62 19 143/65 (91) 96 12/04/19 23:47 139/64 12/04/19 22:48 55 20 40 12/04/19 20:54 63 20 40 12/04/19 20:33 61 148/68 12/04/19 20:00 61 12/04/19 20:00 Mechanical Ventilator 12/04/19 20:00 40 12/04/19 20:00 97.7 60 20 157/67 (97) 100 12/04/19 19:14 63 20 40 12/04/19 18:06 152/71 12/04/19 17:22 60 20 40 12/04/19 16:00 Mechanical Ventilator 12/04/19 16:00 100 12/04/19 16:00 59 10/21/20 15:52 97.5 56 21 152/71 (98) 98 12/04/19 14:56 62 22 40 Intake and Output 12/05/19 12/06/19 19:00 07:00 Intake Total 1725 ml 1398 ml Output Total 500 ml 650 ml Balance 1225 ml 748 ml Intake Free Water 170 ml 50 ml IV Total 1195 ml 988 ml Tube Feeding 360 ml 360 ml Output Urine Total 500 ml 650 ml # Bowel Movements 3 1 Labs Test 12/03/19 18:15 12/03/19 21:00 12/04/19 04:00 12/05/19 02:45 Random Gentamicin Level 6.1 ug/mL 4.7 ug/mL Arterial Blood pH 7.405 (7.350-7.450) Arterial Blood Partial Pressure CO2 27.0 mmHg (35.0-45.0) Arterial Blood Partial Pressure O2 121.0 mmHg (75.0-100.0) Arterial Blood HCO3 16.5 mmol/L (22.0-26.0) Arterial Blood Oxygen Saturation 98.2 % (95-100) Arterial Blood Base Excess -7.1 (-2-2) Rojas Test Positive Stool Occult Blood Positive (NEGATIVE) White Blood Count 7.3 K/UL (4.8-10.8) Red Blood Count 2.86 M/UL (4.20-5.40) Hemoglobin 8.2 G/DL (12.0-16.0) Hematocrit 24.5 % (37.0-47.0) Mean Corpuscular Volume 86 FL (80-99) Mean Corpuscular Hemoglobin 28.7 PG (27.0-31.0) Mean Corpuscular Hemoglobin Concent 33.5 G/DL (32.0-36.0) Red Cell Distribution Width 14.6 % (11.6-14.8) Platelet Count 361 K/UL (150-450) Mean Platelet Volume 5.3 FL (6.5-10.1) Neutrophils (%) (Auto) 60.3 % (45.0-75.0) Lymphocytes (%) (Auto) 26.9 % (20.0-45.0) Monocytes (%) (Auto) 5.7 % (1.0-10.0) Eosinophils (%) (Auto) 6.8 % (0.0-3.0) Basophils (%) (Auto) 0.3 % (0.0-2.0) Sodium Level 136 MMOL/L (136-145) Potassium Level 3.1 MMOL/L (3.5-5.1) Chloride Level 100 MMOL/L (98-107) Carbon Dioxide Level 23 MMOL/L (21-32) Anion Gap 13 mmol/L (5-15) Blood Urea Nitrogen 129 mg/dL (7-18) Creatinine 3.6 MG/DL (0.55-1.30) Estimat Glomerular Filtration Rate 13.6 mL/min (>60) Glucose Level 126 MG/DL (74-106) Uric Acid 8.0 MG/DL (2.6-7.2) Calcium Level 7.0 MG/DL (8.5-10.1) Phosphorus Level 5.3 MG/DL (2.5-4.9) Magnesium Level 3.0 MG/DL (1.8-2.4) Total Bilirubin 0.3 MG/DL (0.2-1.0) Aspartate Amino Transf (AST/SGOT) 26 U/L (15-37) Alanine Aminotransferase (ALT/SGPT) < 6 U/L (12-78) Alkaline Phosphatase 176 U/L (46-116) C-Reactive Protein, Quantitative 5.2 mg/dL (0.00-0.90) Pro-B-Type Natriuretic Peptide > 56521 pg/mL (0-125) Total Protein 5.2 G/DL (6.4-8.2) Albumin 2.1 G/DL (3.4-5.0) Globulin 3.1 g/dL Albumin/Globulin Ratio 0.7 (1.0-2.7) Amylase Level 128 U/L (25-115) Lipase 995 U/L (73-393) Test 12/06/19 02:45 White Blood Count 6.4 K/UL (4.8-10.8) Red Blood Count 3.01 M/UL (4.20-5.40) Hemoglobin 8.5 G/DL (12.0-16.0) Hematocrit 26.5 % (37.0-47.0) Mean Corpuscular Volume 88 FL (80-99) Mean Corpuscular Hemoglobin 28.4 PG (27.0-31.0) Mean Corpuscular Hemoglobin Concent 32.2 G/DL (32.0-36.0) Red Cell Distribution Width 14.3 % (11.6-14.8) Platelet Count 349 K/UL (150-450) Mean Platelet Volume 5.0 FL (6.5-10.1) Neutrophils (%) (Auto) 63.4 % (45.0-75.0) Lymphocytes (%) (Auto) 26.1 % (20.0-45.0) Monocytes (%) (Auto) 5.3 % (1.0-10.0) Eosinophils (%) (Auto) 4.9 % (0.0-3.0) Basophils (%) (Auto) 0.4 % (0.0-2.0) Sodium Level 137 MMOL/L (136-145) Potassium Level 3.3 MMOL/L (3.5-5.1) Chloride Level 99 MMOL/L (98-107) Carbon Dioxide Level 24 MMOL/L (21-32) Blood Urea Nitrogen 125 mg/dL (7-18) Creatinine 3.5 MG/DL (0.55-1.30) Estimat Glomerular Filtration Rate 14.0 mL/min (>60) Glucose Level 122 MG/DL (74-106) Uric Acid 7.5 MG/DL (2.6-7.2) Calcium Level 7.1 MG/DL (8.5-10.1) Phosphorus Level 4.8 MG/DL (2.5-4.9) Magnesium Level 3.0 MG/DL (1.8-2.4) Total Bilirubin 0.3 MG/DL (0.2-1.0) Aspartate Amino Transf (AST/SGOT) 32 U/L (15-37) Alanine Aminotransferase (ALT/SGPT) 8 U/L (12-78) Alkaline Phosphatase 207 U/L (46-116) C-Reactive Protein, Quantitative 5.0 mg/dL (0.00-0.90) Pro-B-Type Natriuretic Peptide > 42141 pg/mL (0-125) Total Protein 5.4 G/DL (6.4-8.2) Albumin 2.1 G/DL (3.4-5.0) Globulin 3.3 g/dL Albumin/Globulin Ratio 0.6 (1.0-2.7) Lipase 886 U/L (73-393) Height (Feet): 5 Height (Inches): 4.00 Weight (Pounds): 150 Objective Physical Exam: Vitals: reviewed General: NAD HEENT: nc, at Neck: supple ++tracn/vent Chest: clear breath sounds bilaterally Cardiovascular: RRR, no s3, s4 Abdomen: soft, nontender, nd +gtube Extremities: no cce, normal range of motion Neuro: alert ++Evan Molina MD Dec 06, 2019 14:31
[2019-12-06 16:00] VITALS: BP 139/66
[2019-12-06 20:00] VITALS: BP 147/62
[2019-12-06] MEDS: Miralax 17gm pkt GT SCH (20:53)
[2019-12-06] MEDS: Epoetin Alfa-EPBX (NON ESRD)10,000 unit/ml vial SUBQ SCH (21:00)
[2019-12-07] VITALS: BP 146/68
[2019-12-07] MEDS: Meropenem 500 MG in NS 55 ML IVPB SCH ×2 (03:03→14:52)
[2019-12-07] MEDS: Metoclopramide 10mg/2ml Inj IVP SCH ×4 (03:07→21:11)
--- NOTE | 2019-12-07 03:30 | Cardiology Progress Note ---
Subjective DATE OF SERVICE: Dec 06, 2019 On vent support Head CT (12/05) reveals pansinusitis; no acute process CXR (12/05/19) reveals worsening left consolidation and eff'n, with new right infiltrate/atelectasis. Multiple electrolyte abnormalities Monitor: Sinus and sinus bradycardia. No pauses. CT scan confirmed chronic aortic dissection Objective Last 24 Hour Vital Signs Date Time Temp Pulse Resp B/P (MAP) Pulse Ox O2 Delivery O2 Flow Rate FiO2 12/07/19 03:12 61 20 60 12/07/19 00:47 63 20 60 12/07/19 00:00 63 12/07/19 00:00 Mechanical Ventilator 12/07/19 00:00 97.3 63 20 146/68 (94) 97 12/06/19 23:12 60 12/06/19 23:12 62 20 50 12/06/19 21:00 62 146/64 12/06/19 20:43 50 12/06/19 20:42 63 20 40 12/06/19 20:00 97.7 64 20 147/62 (90) 94 12/06/19 20:00 40 12/06/19 20:00 62 12/06/19 20:00 Mechanical Ventilator 12/06/19 18:50 62 20 40 12/06/19 17:16 60 20 40 12/06/19 16:00 97.2 70 18 139/66 (90) 95 12/06/19 16:00 40 12/06/19 16:00 61 12/06/19 16:00 Mechanical Ventilator 12/06/19 15:36 61 20 139/66 95 12/06/19 15:06 63 20 140/60 96 12/06/19 14:59 61 20 40 12/06/19 12:55 73 22 40 12/06/19 12:00 Mechanical Ventilator 12/06/19 12:00 40 12/06/19 12:00 97.9 64 18 143/63 (89) 97 12/06/19 11:40 56 12/06/19 11:00 55 20 40 12/06/19 09:44 97.8 12/06/19 09:15 61 149/81 12/06/19 09:14 61 149/81 12/06/19 09:00 61 20 40 12/06/19 08:00 40 10/23/20 08:00 97.8 61 18 150/67 (94) 100 12/06/19 08:00 Mechanical Ventilator 12/06/19 07:47 60 12/06/19 07:15 61 22 40 12/06/19 05:12 60 20 40 12/06/19 04:00 97.5 58 22 148/62 (90) 100 12/06/19 04:00 40 12/06/19 04:00 Mechanical Ventilator 12/06/19 03:45 58 20 40 12/06/19 03:43 57 ROS: no changes from my prior evaluation 11/30/19 HEENT: Thin secretions ET Tube RHYTHM: ST LUNGS: bilateral rhonchi CARDIAC: normal rate, regular rhythm, normal S1 and S2 ABDOMEN: normal bowel sounds, G-Tube intact EXTREMITIES: +2 edema Assessment/Plan Assessment/Plan Respiratory failure Acute myocardial ischemia and possible NSTE myocardial infarction Ischemic cardiomyopathy - s/p CABG Hx AAA repair with chronic dissection Paroxysmal AFib Pacemaker explant due to infection Decubitus sepsis Low lipid parameters Renal failure ac/chr Degenerative aortic valve disease (Mild-mod AI and ) Mild pulmonary hypertension Antimicrobials Anti-plt therapy Titrate beta flori - now stable heart rate on low dose regimen. Vent support Diuresis as able Titrate amlodipine Deni Willams MD Dec 07, 2019 03:30
[2019-12-07 04:00] VITALS: BP 140/66
[2019-12-07 05:13] LABS: BASOPHILS % (AUTO) 0.2 % (0.0-2.0); EOSINOPHILS % (AUTO) 0.5 % (0.0-3.0); HEMATOCRIT 25.8 % (37.0-47.0); HEMOGLOBIN 8.5 G/DL (12.0-16.0); LYMPHOCYTES % (AUTO) 30.1 % (20.0-45.0); MEAN CORPUSCULAR VOLUME 88 FL (80-99); MONOCYTES % (AUTO) 4.2 % (1.0-10.0); NEUTROPHILS % (AUTO) 64.9 % (45.0-75.0); PLATELET COUNT 342 K/UL (150-450); RED BLOOD COUNT 2.93 M/UL (4.20-5.40); RED CELL DISTRIBUTION WIDTH 14.1 % (11.6-14.8); WHITE BLOOD COUNT 6.2 K/UL (4.8-10.8)
[2019-12-07 05:49] LABS: CALCIUM 7.1 MG/DL (8.5-10.1); CREATININE 3.5 MG/DL (0.55-1.30); POTASSIUM 3.3 MMOL/L (3.5-5.1)
[2019-12-07 06:12] LABS: ALANINE AMINOTRANSFERASE 12 U/L (12-78); ALKALINE PHOSPHATASE 261 U/L (46-116); ASPARTATE AMINO TRANSFERASE 42 U/L (15-37); BILIRUBIN,DIRECT < 0.1 MG/DL (0.0-0.3); BILIRUBIN,TOTAL 0.3 MG/DL (0.2-1.0); PHOSPHORUS 4.7 MG/DL (2.5-4.9)
[2019-12-07] MEDS: Sodium Bicarbonate 100 ML in D5W 1000ml 1,000 ML IV SCH (07:55)
[2019-12-07 08:01] VITALS: BP 146/78
[2019-12-07] MEDS: Zinc Sulfate 220mg GT SCH (08:08)
[2019-12-07] MEDS: Ascorbic Acid 500mg tab GT SCH (08:09)
[2019-12-07] MEDS: Nephrovite tab (Rena-Vite) GT SCH (08:09)
[2019-12-07] MEDS: Metoprolol Tartrate 12.5mg TAB ORAL SCH ×2 (08:11→20:48)
[2019-12-07] MEDS: Heparin 5000 units/ml inj SUBQ SCH ×2 (08:12→20:50)
--- NOTE | 2019-12-07 08:13 | Infectious Diseases Prog Note ---
Assessment/Plan Assessment: COVID19 neg x2 (11/27 & rapid COVID PCR neg) Sepsis UTI -11/27 u/a wbc 30-40, nit neg, leuk +3; ucx ESBL P. mirablis, ESBL M. morganii Pl effusion, transudate - 11/28 Sp Thoraco (w: 169, PMN: 2%, L: 49% , LDH: 57, prot 2.5); cx Neg PNA -12/04 CXR Stable moderate left pleural effusion with associated airspace consolidation. Increasing right basilar airspace opacity which could represent developing consolidation versus worsening atelectasis. -11/28 CXR: Resolved right pleural effusion, status post thoracentesis. No radiographically evident complication Sp cx ESBL P. mirablis (S Meropenem, Zosyn), MDR PsA (S Gentamycin) Influenza ag neg -11/27 CXR: Increasing hazy right lung diffuse opacity. Suspect at least in part due to overlying soft tissue, but developing infiltrate also possible. Persistent and slightly increased left retrocardiac consolidation and slightly increased left pleural effusion -11/27 Bcx NTD -legionella ag urine, M. IgM neg Fever , SP Leukocytosis, SP -12/02 CT abd/p wo: Study substantially limited due to lack of IV contrast and severe anasarca and moderate nonloculated ascites. Left nephroureteral stent in the decompressed left, atrophic renal collecting system. No evident urolithiasis. Incompletely evaluated chronic aortic dissection not well seen on this study due to lack of IV contrast and severe anasarca. Bilateral moderate low-attenuation, partially loculated pleural effusions with extensive passive atelectasis; correlate to exclude superimposed aspiration or pneumonia.Percut aneous gastrostomy tube. Norman catheter in decompressed urinary bladder. Likely chronic appearing right intertrochanteric hip fracture. Possible sacral decubitus ulcer, recommend direct visualization. Acute on chronic hypoxic resp failure JAVIER on CKD; improving- on previous admission Sep-Oct 2019 required HD for short period hx of Recent MDR PnA, sp rx 10/15/19 sp cx ESBL P. mirabilis, MDR P.a. ( S only to Gent) 09/22 Resp cx + MDR PsA (S-gent; I-colistin; R-levofloxacin, Zosyn, angelo) 09/16/19 Sp cx ESBL P. mirablis hx of recent UTI 09/15/19 u/a wbc tnct, nit neg, leuk +3; ucx >100k MDR P. stuarti (S Ceftriaxone, Meropenem) 10/07 u/a wbc tnct, nit neg, leuk ; ucx >100k VRE 10/15/19 u/a wbc tnct; ucx >100k ESBL P. stuarti (S ertapenem, aztreonam) H/o PPM site (pocket) infection and pocket abscess 2ry to S. epi-11/2018, sp >6weeks IV vancomycin 11/27 SP ABBIE: no evidence for vegetation on any of the valves 11/26/18 SP PPM removal: OR findings:The fibrous capsule enclosing the generator was then opened and there was a [id number] amount of yellowish fluid drainage. The generator was then removed.Atrial and ventricular leads were detached. The necrotic tissue of the pocket was then removed and the pocket was flushed with an antibiotic solution. Capsule, wound tissue and lead tip cx: Neg 2d echo: no vegetation seen US chest: 4.6 x 3.4 x 0.9 cm hypoechoic/anechoic area overlying left chest pacemaker power pack. This could represent either a discrete fluid collection or a focal area of very edematous tissue. Infected fluid pocket also possible. 11/18 Bcx 3/4 S. epi; 11/20 Bcx neg; 11/24 Bcx Neg; 11/27 Bcx Neg CAD s/p CABG GERD/gastritis Afib HTN Dysphagia sp GT Aortic dissection s/p repair 2017, S/p PPM Parkinson's Disease Schizophrenia Anxiety COPD Chronic resp failure s/p trach Hx of tracheal bleeding [place] resident ([facility]) VRE and MRSA colonized Plan: -Meropenem # 9/10 and IV Gentamycin #6/7-10 for MDR PsA -12/01 SP IV Vancomycin #5 - 11/28 Sp Cefepime #2 and IV Gentamycin x1 -f/u cx -Monitor CBC/CMP, temperatures -PEG/trach care -aspiration precautions -COVID19 neg x2 Subjective Psychiatric: Reports: no symptoms Allergies: Coded Allergies: No Known Allergies (Unverified , 10/10/17) AF No leukocytosis NAD in bed on vent, FiO2 60% PEEP 5 satting 98% Objective Last 24 Hour Vital Signs Date Time Temp Pulse Resp B/P (MAP) Pulse Ox O2 Delivery O2 Flow Rate FiO2 12/07/19 08:01 97.5 54 18 146/78 (100) 98 12/07/19 07:35 55 20 60 12/07/19 05:10 54 20 60 12/07/19 04:00 40 12/07/19 04:00 57 12/07/19 04:00 97.7 58 20 140/66 (90) 98 12/07/19 04:00 Mechanical Ventilator 12/07/19 03:12 61 20 60 12/07/19 00:47 63 20 60 12/07/19 00:00 63 12/07/19 00:00 Mechanical Ventilator 12/07/19 00:00 97.3 63 20 146/68 (94) 97 12/06/19 23:12 60 12/06/19 23:12 62 20 50 12/06/19 21:00 62 146/64 12/06/19 20:43 50 12/06/19 20:42 63 20 40 12/06/19 20:00 97.7 64 20 147/62 (90) 94 12/06/19 20:00 40 12/06/19 20:00 62 12/06/19 20:00 Mechanical Ventilator 12/06/19 18:50 62 20 40 12/06/19 17:16 60 20 40 12/06/19 16:00 97.2 70 18 139/66 (90) 95 12/06/19 16:00 40 12/06/19 16:00 61 12/06/19 16:00 Mechanical Ventilator 12/06/19 15:36 61 20 139/66 95 12/06/19 15:06 63 20 140/60 96 12/06/19 14:59 61 20 40 12/06/19 12:55 73 22 40 12/06/19 12:00 Mechanical Ventilator 12/06/19 12:00 40 12/06/19 12:00 97.9 64 18 143/63 (89) 97 12/06/19 11:40 56 12/06/19 11:00 55 20 40 12/06/19 09:44 97.8 12/06/19 09:15 61 149/81 12/06/19 09:14 61 149/81 10/23/20 09:00 61 20 40 Height (Feet): 5 Height (Inches): 4.00 Weight (Pounds): 150 Gen: NAD HEENT: NCAT CV: RRR Pulm: CTAB on vent Abd: Soft, NTND Ext: No c/c/e Neuro: Awake Laboratory Tests Test 12/07/19 03:00 White Blood Count 6.2 K/UL (4.8-10.8) Red Blood Count 2.93 M/UL (4.20-5.40) L Hemoglobin 8.5 G/DL (12.0-16.0) L Hematocrit 25.8 % (37.0-47.0) L Mean Corpuscular Volume 88 FL (80-99) Mean Corpuscular Hemoglobin 28.8 PG (27.0-31.0) Mean Corpuscular Hemoglobin Concent 32.8 G/DL (32.0-36.0) Red Cell Distribution Width 14.1 % (11.6-14.8) Platelet Count 342 K/UL (150-450) Mean Platelet Volume 5.0 FL (6.5-10.1) L Neutrophils (%) (Auto) 64.9 % (45.0-75.0) Lymphocytes (%) (Auto) 30.1 % (20.0-45.0) Monocytes (%) (Auto) 4.2 % (1.0-10.0) Eosinophils (%) (Auto) 0.5 % (0.0-3.0) Basophils (%) (Auto) 0.2 % (0.0-2.0) Sodium Level 134 MMOL/L (136-145) L Potassium Level 3.3 MMOL/L (3.5-5.1) L Chloride Level 97 MMOL/L (98-107) L Carbon Dioxide Level 25 MMOL/L (21-32) Anion Gap 12 mmol/L (5-15) Blood Urea Nitrogen 124 mg/dL (7-18) H Creatinine 3.5 MG/DL (0.55-1.30) H Estimat Glomerular Filtration Rate 14.0 mL/min (>60) Glucose Level 109 MG/DL (74-106) H Calcium Level 7.1 MG/DL (8.5-10.1) L Phosphorus Level 4.7 MG/DL (2.5-4.9) Magnesium Level 3.0 MG/DL (1.8-2.4) H Total Bilirubin 0.3 MG/DL (0.2-1.0) Direct Bilirubin < 0.1 MG/DL (0.0-0.3) Aspartate Amino Transf (AST/SGOT) 42 U/L (15-37) H Alanine Aminotransferase (ALT/SGPT) 12 U/L (12-78) Alkaline Phosphatase 261 U/L (46-116) H C-Reactive Protein, Quantitative 5.3 mg/dL (0.00-0.90) H Pro-B-Type Natriuretic Peptide > 15407 pg/mL (0-125) H Total Protein 5.5 G/DL (6.4-8.2) L Albumin 2.0 G/DL (3.4-5.0) L Lipase 872 U/L (73-393) H Random Gentamicin Level 3.4 ug/mL Current Medications Medications (Trade) Dose Ordered Sig/Penny Route PRN Reason Start Time Stop Time Status Last Admin Dose Admin Acetaminophen (Tylenol) 650 mg Q4H PRN GT Temp >100.5 11/29/19 04:30 12/29/19 04:29 12/06/19 09:14 Amlodipine Besylate (Norvasc) 5 mg DAILY GT 12/06/19 09:00 01/05/20 08:59 12/06/19 09:15 Ascorbic Acid (Vitamin C) 500 mg DAILY GT 11/29/19 09:00 12/29/19 08:59 12/06/19 09:14 Clonidine HCl (Catapres TTS-1) 1 patch ONCE A WEEK TDERMAL 12/03/19 09:00 03/02/20 08:59 12/03/19 09:10 Clotrimazole (Lotrimin) 1 applic THREE TIMES A DAY TOPIC 12/01/19 13:00 02/29/20 12:59 12/06/19 17:54 Epoetin Gelacio (Epoetin Gelacio-EPBX(NON ESRD)) 10,000 unit MON-MON-MON SUBQ 11/29/19 21:00 02/27/20 20:59 12/06/19 21:00 Gentamicin Protocol (Gentamicin pharmacy to dose) 1 ea DAILY PRN MISC Per rx protocol 12/02/19 18:00 01/01/20 17:59 Heparin Sodium (Porcine) (Heparin 5000 units/ml) 5,000 units EVERY 12 HOURS SUBQ 11/29/19 09:00 01/13/20 08:59 12/01/19 20:58 Lansoprazole (Prevacid) 30 mg DAILY GT 12/01/19 12:00 12/31/19 11:59 12/06/19 09:14 Meropenem 500 mg/ Sodium Chloride 55 ml @ 110 mls/hr Q12HR@0300,1500 IVPB 12/05/19 15:00 12/08/19 16:00 12/07/19 03:03 Metoclopramide HCl (Reglan) 10 mg Q6H IVP 12/04/19 10:00 01/03/20 09:59 12/07/19 03:07 Metoprolol Tartrate (Lopressor) 12.5 mg Q12HR ORAL 12/03/19 21:00 03/02/20 08:59 12/06/19 21:00 Polyethylene Glycol (Miralax) 17 gm BEDTIME GT 11/29/19 21:00 12/29/19 20:59 12/05/19 20:31 Potassium Chloride 100 ml @ 100 mls/hr Q1H IVPB 12/07/19 08:00 12/07/19 09:59 12/07/19 07:56 Sodium Bicarbonate 100 ml/Dextrose 1,100 ml @ 80 mls/hr [id number] IV 12/03/19 21:00 01/02/20 20:59 12/07/19 07:55 Vitamin B Complex/ Vit C/Folic Acid (Nephrovite) 1 tab DAILY GT 11/29/19 09:00 12/29/19 08:59 12/06/19 09:14 Zinc Sulfate (Zinc Sulfate) 220 mg DAILY GT 11/29/19 09:00 02/27/20 08:59 12/06/19 09:14 Ro Pack M.D. Dec 07, 2019 08:12
[2019-12-07] MEDS ORDERED: Tubing IV Secondary IV ONE (09:55)
[2019-12-07] MEDS ORDERED: NS 275ml ONE (09:55)
[2019-12-07 12:00] VITALS: BP 145/66
--- NOTE | 2019-12-07 12:06 | Pulmonology Progress Note ---
Subjective ROS Limited/Unobtainable: Yes Interval Events: None new Constitutional: Reports: no symptoms HEENT: Repors: no symptoms Respiratory: Reports: no symptoms Cardiovascular: Reports: no symptoms Gastrointestinal/Abdominal: Reports: no symptoms Psychiatric: Reports: no symptoms Allergies: Coded Allergies: No Known Allergies (Unverified , 10/10/17) All Systems: reviewed and negative except above Objective Last 24 Hour Vital Signs Date Time Temp Pulse Resp B/P (MAP) Pulse Ox O2 Delivery O2 Flow Rate FiO2 12/07/19 11:19 60 21 60 12/07/19 09:06 58 21 60 12/07/19 08:40 56 12/07/19 08:11 54 146/78 12/07/19 08:09 54 146/78 12/07/19 08:01 97.5 54 18 146/78 (100) 98 12/07/19 08:00 Mechanical Ventilator 12/07/19 08:00 40 12/07/19 07:35 55 20 60 12/07/19 05:10 54 20 60 12/07/19 04:00 40 12/07/19 04:00 57 12/07/19 04:00 97.7 58 20 140/66 (90) 98 12/07/19 04:00 Mechanical Ventilator 12/07/19 03:12 61 20 60 12/07/19 00:47 63 20 60 12/07/19 00:00 63 12/07/19 00:00 Mechanical Ventilator 12/07/19 00:00 97.3 63 20 146/68 (94) 97 12/06/19 23:12 60 12/06/19 23:12 62 20 50 12/06/19 21:00 62 146/64 12/06/19 20:43 50 12/06/19 20:42 63 20 40 12/06/19 20:00 97.7 64 20 147/62 (90) 94 12/06/19 20:00 40 12/06/19 20:00 62 12/06/19 20:00 Mechanical Ventilator 12/06/19 18:50 62 20 40 12/06/19 17:16 60 20 40 12/06/19 16:00 97.2 70 18 139/66 (90) 95 12/06/19 16:00 40 12/06/19 16:00 61 12/06/19 16:00 Mechanical Ventilator 12/06/19 15:36 61 20 139/66 95 12/06/19 15:06 63 20 140/60 96 12/06/19 14:59 61 20 40 12/06/19 12:55 73 22 40 Intake and Output 12/06/19 12/07/19 19:00 07:00 Intake Total 1020 ml 1575 ml Output Total 500 ml 850 ml Balance 520 ml 725 ml Intake Free Water 60 ml 200 ml IV Total 600 ml 1015 ml Tube Feeding 360 ml 360 ml Output Urine Total 500 ml 850 ml # Bowel Movements 1 General Appearance: no acute distress HEENT: normocephalic, status post trach Respiratory: chest wall non-tender, lungs clear Cardiovascular: normal peripheral pulses Abdomen: normal bowel sounds Laboratory Tests 12/07/19 03:00: White Blood Count 6.2, Red Blood Count 2.93L, Hemoglobin 8.5L, Hematocrit 25.8L, Mean Corpuscular Volume 88, Mean Corpuscular Hemoglobin 28.8, Mean Corpuscular Hemoglobin Concent 32.8, Red Cell Distribution Width 14.1, Platelet Count 342, Mean Platelet Volume 5.0L, Neutrophils (%) (Auto) 64.9, Lymphocytes (%) (Auto) 30.1, Monocytes (%) (Auto) 4.2, Eosinophils (%) (Auto) 0.5, Basophils (%) (Auto) 0.2, Sodium Level 134L, Potassium Level 3.3L, Chloride Level 97L, Carbon Dioxide Level 25, Anion Gap 12, Blood Urea Nitrogen 124H, Creatinine 3.5H, Estimat Glomerular Filtration Rate 14.0, Glucose Level 109H, Calcium Level 7.1L, Phosphorus Level 4.7, Magnesium Level 3.0H, Total Bilirubin 0.3, Direct Bilirubin < 0.1, Aspartate Amino Transf (AST/SGOT) 42H, Alanine Aminotransferase (ALT/SGPT) 12, Alkaline Phosphatase 261H, C-Reactive Protein, Quantitative 5.3H, Pro-B-Type Natriuretic Peptide > 99404F, Total Protein 5.5L, Albumin 2.0L, Lipase 872H, Random Gentamicin Level 3.4 12/07/19 10:59: Arterial Blood pH 7.474H, Arterial Blood Partial Pressure CO2 37.2, Arterial Blood Partial Pressure O2 74.5L, Arterial Blood HCO3 26.7H, Arterial Blood Oxygen Saturation 94.8L, Arterial Blood Base Excess 3.0H, Rojas Test Positive Current Medications Medications (Trade) Dose Ordered Sig/Penny Route PRN Reason Start Time Stop Time Status Last Admin Dose Admin Acetaminophen (Tylenol) 650 mg Q4H PRN GT Temp >100.5 11/29/19 04:30 12/29/19 04:29 12/06/19 09:14 Amlodipine Besylate (Norvasc) 5 mg DAILY GT 12/06/19 09:00 01/05/20 08:59 12/07/19 08:09 Ascorbic Acid (Vitamin C) 500 mg DAILY GT 11/29/19 09:00 12/29/19 08:59 12/07/19 08:09 Clonidine HCl (Catapres TTS-1) 1 patch ONCE A WEEK TDERMAL 12/03/19 09:00 03/02/20 08:59 12/03/19 09:10 Clotrimazole (Lotrimin) 1 applic THREE TIMES A DAY TOPIC 12/01/19 13:00 02/29/20 12:59 12/07/19 08:10 Epoetin Gelacio (Epoetin Gelacio-EPBX(NON ESRD)) 10,000 unit MON-WED-FRI SUBQ 11/29/19 21:00 02/27/20 20:59 12/06/19 21:00 Gentamicin Protocol (Gentamicin pharmacy to dose) 1 ea DAILY PRN MISC Per rx protocol 12/02/19 18:00 01/01/20 17:59 Heparin Sodium (Porcine) (Heparin 5000 units/ml) 5,000 units EVERY 12 HOURS SUBQ 11/29/19 09:00 01/13/20 08:59 12/01/19 20:58 Lansoprazole (Prevacid) 30 mg DAILY GT 12/01/19 12:00 12/31/19 11:59 12/07/19 08:08 Meropenem 500 mg/ Sodium Chloride 55 ml @ 110 mls/hr Q12HR@0300,1500 IVPB 12/05/19 15:00 12/08/19 16:00 12/07/19 03:03 Metoclopramide HCl (Reglan) 10 mg Q6H IVP 12/04/19 10:00 01/03/20 09:59 12/07/19 10:12 Metoprolol Tartrate (Lopressor) 12.5 mg Q12HR ORAL 12/03/19 21:00 03/02/20 08:59 12/06/19 21:00 Polyethylene Glycol (Miralax) 17 gm BEDTIME GT 11/29/19 21:00 12/29/19 20:59 12/05/19 20:31 Sodium Bicarbonate 100 ml/Dextrose 1,100 ml @ 80 mls/hr [id number] IV 12/03/19 21:00 01/02/20 20:59 12/07/19 07:55 Vitamin B Complex/ Vit C/Folic Acid (Nephrovite) 1 tab DAILY GT 11/29/19 09:00 12/29/19 08:59 12/07/19 08:09 Zinc Sulfate (Zinc Sulfate) 220 mg DAILY GT 11/29/19 09:00 02/27/20 08:59 12/07/19 08:08 Assessment/Plan Assessment/Plan Assessment: COVID19 neg x1 Sepsis U TI Pl effusion PNA Low grade fever Leukocytosis, Acute on chronic hypoxic resp failure JAVIER on CKD- hx of Recent MDR PnA, sp rx H/o PPM site (pocket) infection and pocket abscess 2ry to S. epi-11/2018, sp >6weeks IV vancomycin CAD s/p CABG GERD/gastritis Afib HTN Dysphagia sp GT Aortic dissection s/p repair 2017, S/p PPM Parkinson's Disease Schizophrenia Anxiety COPD Chronic resp failure s/p trach Hx of tracheal bleeding [place] resident ([facility]) Plan: -Continue empiric abx -Monitor CBC/CMP, temperatures -PEG/trach care -aspiration precautions -COVID19 isolation and testing; -s/p thoracentesis- sent fluid analysis and culture - Will wean FiO2 down; currently on 40% FiO2 Dc planning Elijah Stephen MD Dec 07, 2019 12:06
--- NOTE | 2019-12-07 13:38 | Cardiology Progress Note ---
Subjective DATE OF SERVICE: Dec 07, 2019 On vent support Head CT (12/05) reveals pansinusitis; no acute process CXR (12/05/19) reveals worsening left consolidation and eff'n, with new right infiltrate/atelectasis. Multiple electrolyte abnormalities and renal failure persist. ABG: (12/06) 7.47/37/74 Monitor: Sinus and sinus bradycardia. No pauses. CT scan confirmed chronic aortic dissection Objective Last 24 Hour Vital Signs Date Time Temp Pulse Resp B/P (MAP) Pulse Ox O2 Delivery O2 Flow Rate FiO2 12/07/19 13:11 62 20 60 12/07/19 12:31 60 12/07/19 12:00 97.5 61 21 145/66 (92) 98 12/07/19 12:00 40 12/07/19 12:00 Mechanical Ventilator 12/07/19 11:19 60 21 60 12/07/19 09:06 58 21 60 12/07/19 08:40 56 12/07/19 08:11 54 146/78 12/07/19 08:09 54 146/78 12/07/19 08:01 97.5 54 18 146/78 (100) 98 12/07/19 08:00 Mechanical Ventilator 12/07/19 08:00 40 12/07/19 07:35 55 20 60 12/07/19 05:10 54 20 60 12/07/19 04:00 40 12/07/19 04:00 57 12/07/19 04:00 97.7 58 20 140/66 (90) 98 12/07/19 04:00 Mechanical Ventilator 12/07/19 03:12 61 20 60 12/07/19 00:47 63 20 60 12/07/19 00:00 63 12/07/19 00:00 Mechanical Ventilator 12/07/19 00:00 97.3 63 20 146/68 (94) 97 12/06/19 23:12 60 12/06/19 23:12 62 20 50 12/06/19 21:00 62 146/64 12/06/19 20:43 50 12/06/19 20:42 63 20 40 12/06/19 20:00 97.7 64 20 147/62 (90) 94 12/06/19 20:00 40 12/06/19 20:00 62 12/06/19 20:00 Mechanical Ventilator 12/06/19 18:50 62 20 40 12/06/19 17:16 60 20 40 12/06/19 16:00 97.2 70 18 139/66 (90) 95 12/06/19 16:00 40 12/06/19 16:00 61 12/06/19 16:00 Mechanical Ventilator 12/06/19 15:36 61 20 139/66 95 12/06/19 15:06 63 20 140/60 96 12/06/19 14:59 61 20 40 ROS: no changes from my prior evaluation 11/30/19 HEENT: Thin secretions ET Tube RHYTHM: ST LUNGS: bilateral rhonchi CARDIAC: normal rate, regular rhythm, normal S1 and S2 ABDOMEN: normal bowel sounds, G-Tube intact EXTREMITIES: +2 edema Laboratory Tests Test 12/07/19 03:00 12/07/19 10:59 White Blood Count 6.2 K/UL (4.8-10.8) Red Blood Count 2.93 M/UL (4.20-5.40) L Hemoglobin 8.5 G/DL (12.0-16.0) L Hematocrit 25.8 % (37.0-47.0) L Mean Corpuscular Volume 88 FL (80-99) Mean Corpuscular Hemoglobin 28.8 PG (27.0-31.0) Mean Corpuscular Hemoglobin Concent 32.8 G/DL (32.0-36.0) Red Cell Distribution Width 14.1 % (11.6-14.8) Platelet Count 342 K/UL (150-450) Mean Platelet Volume 5.0 FL (6.5-10.1) L Neutrophils (%) (Auto) 64.9 % (45.0-75.0) Lymphocytes (%) (Auto) 30.1 % (20.0-45.0) Monocytes (%) (Auto) 4.2 % (1.0-10.0) Eosinophils (%) (Auto) 0.5 % (0.0-3.0) Basophils (%) (Auto) 0.2 % (0.0-2.0) Sodium Level 134 MMOL/L (136-145) L Potassium Level 3.3 MMOL/L (3.5-5.1) L Chloride Level 97 MMOL/L (98-107) L Carbon Dioxide Level 25 MMOL/L (21-32) Anion Gap 12 mmol/L (5-15) Blood Urea Nitrogen 124 mg/dL (7-18) H Creatinine 3.5 MG/DL (0.55-1.30) H Estimat Glomerular Filtration Rate 14.0 mL/min (>60) Glucose Level 109 MG/DL (74-106) H Calcium Level 7.1 MG/DL (8.5-10.1) L Phosphorus Level 4.7 MG/DL (2.5-4.9) Magnesium Level 3.0 MG/DL (1.8-2.4) H Total Bilirubin 0.3 MG/DL (0.2-1.0) Direct Bilirubin < 0.1 MG/DL (0.0-0.3) Aspartate Amino Transf (AST/SGOT) 42 U/L (15-37) H Alanine Aminotransferase (ALT/SGPT) 12 U/L (12-78) Alkaline Phosphatase 261 U/L (46-116) H C-Reactive Protein, Quantitative 5.3 mg/dL (0.00-0.90) H Pro-B-Type Natriuretic Peptide > 87040 pg/mL (0-125) H Total Protein 5.5 G/DL (6.4-8.2) L Albumin 2.0 G/DL (3.4-5.0) L Lipase 872 U/L (73-393) H Random Gentamicin Level 3.4 ug/mL Arterial Blood pH 7.474 (7.350-7.450) Arterial Blood Partial Pressure CO2 37.2 mmHg (35.0-45.0) Arterial Blood Partial Pressure O2 74.5 mmHg (75.0-100.0) L Arterial Blood HCO3 26.7 mmol/L (22.0-26.0) H Arterial Blood Oxygen Saturation 94.8 % (95-100) L Arterial Blood Base Excess 3.0 (-2-2) H Rojas Test Positive Assessment/Plan Assessment/Plan Respiratory failure Acute myocardial ischemia and possible NSTE myocardial infarction Ischemic cardiomyopathy - s/p CABG Hx AAA repair with chronic dissection Paroxysmal AFib Pacemaker explant due to infection Decubitus sepsis Low lipid parameters Renal failure ac/chr Degenerative aortic valve disease (Mild-mod AI and ) Mild pulmonary hypertension Hypokalemia Chronic diastolic CHF with elevated BNP Antimicrobials Anti-plt therapy Titrate beta flori - now stable heart rate on low dose regimen. Vent support Diuresis as able Titrate amlodipine if BP trend increases. Deni Willams MD Dec 07, 2019 13:38
--- NOTE | 2019-12-07 14:07 | Surgery Progress Note ---
Surgery Progress Note Subjective Additional Comments no acute events comfortable on support Head CT noted Objective Last 24 Hour Vital Signs Date Time Temp Pulse Resp B/P (MAP) Pulse Ox O2 Delivery O2 Flow Rate FiO2 12/07/19 13:11 62 20 60 12/07/19 12:31 60 12/07/19 12:00 97.5 61 21 145/66 (92) 98 12/07/19 12:00 40 12/07/19 12:00 Mechanical Ventilator 12/07/19 11:19 60 21 60 12/07/19 09:06 58 21 60 12/07/19 08:40 56 12/07/19 08:11 54 146/78 12/07/19 08:09 54 146/78 12/07/19 08:01 97.5 54 18 146/78 (100) 98 12/07/19 08:00 Mechanical Ventilator 12/07/19 08:00 40 12/07/19 07:35 55 20 60 12/07/19 05:10 54 20 60 12/07/19 04:00 40 12/07/19 04:00 57 12/07/19 04:00 97.7 58 20 140/66 (90) 98 12/07/19 04:00 Mechanical Ventilator 12/07/19 03:12 61 20 60 12/07/19 00:47 63 20 60 12/07/19 00:00 63 12/07/19 00:00 Mechanical Ventilator 12/07/19 00:00 97.3 63 20 146/68 (94) 97 12/06/19 23:12 60 12/06/19 23:12 62 20 50 12/06/19 21:00 62 146/64 12/06/19 20:43 50 12/06/19 20:42 63 20 40 12/06/19 20:00 97.7 64 20 147/62 (90) 94 12/06/19 20:00 40 12/06/19 20:00 62 12/06/19 20:00 Mechanical Ventilator 12/06/19 18:50 62 20 40 12/06/19 17:16 60 20 40 12/06/19 16:00 97.2 70 18 139/66 (90) 95 12/06/19 16:00 40 12/06/19 16:00 61 12/06/19 16:00 Mechanical Ventilator 12/06/19 15:36 61 20 139/66 95 10/23/20 15:06 63 20 140/60 96 12/06/19 14:59 61 20 40 I&O Intake and Output 12/06/19 12/07/19 19:00 07:00 Intake Total 1020 ml 1575 ml Output Total 500 ml 850 ml Balance 520 ml 725 ml Intake Free Water 60 ml 200 ml IV Total 600 ml 1015 ml Tube Feeding 360 ml 360 ml Output Urine Total 500 ml 850 ml # Bowel Movements 1 Dressing: saturated Cardiovascular: RSR Respiratory: decreased breath sounds Abdomen: soft, non-tender, present bowel sounds Extremities: edema, no tenderness, no cyanosis Laboratory Tests Test 12/07/19 03:00 12/07/19 10:59 White Blood Count 6.2 K/UL (4.8-10.8) Red Blood Count 2.93 M/UL (4.20-5.40) L Hemoglobin 8.5 G/DL (12.0-16.0) L Hematocrit 25.8 % (37.0-47.0) L Mean Corpuscular Volume 88 FL (80-99) Mean Corpuscular Hemoglobin 28.8 PG (27.0-31.0) Mean Corpuscular Hemoglobin Concent 32.8 G/DL (32.0-36.0) Red Cell Distribution Width 14.1 % (11.6-14.8) Platelet Count 342 K/UL (150-450) Mean Platelet Volume 5.0 FL (6.5-10.1) L Neutrophils (%) (Auto) 64.9 % (45.0-75.0) Lymphocytes (%) (Auto) 30.1 % (20.0-45.0) Monocytes (%) (Auto) 4.2 % (1.0-10.0) Eosinophils (%) (Auto) 0.5 % (0.0-3.0) Basophils (%) (Auto) 0.2 % (0.0-2.0) Sodium Level 134 MMOL/L (136-145) L Potassium Level 3.3 MMOL/L (3.5-5.1) L Chloride Level 97 MMOL/L (98-107) L Carbon Dioxide Level 25 MMOL/L (21-32) Anion Gap 12 mmol/L (5-15) Blood Urea Nitrogen 124 mg/dL (7-18) H Creatinine 3.5 MG/DL (0.55-1.30) H Estimat Glomerular Filtration Rate 14.0 mL/min (>60) Glucose Level 109 MG/DL (74-106) H Calcium Level 7.1 MG/DL (8.5-10.1) L Phosphorus Level 4.7 MG/DL (2.5-4.9) Magnesium Level 3.0 MG/DL (1.8-2.4) H Total Bilirubin 0.3 MG/DL (0.2-1.0) Direct Bilirubin < 0.1 MG/DL (0.0-0.3) Aspartate Amino Transf (AST/SGOT) 42 U/L (15-37) H Alanine Aminotransferase (ALT/SGPT) 12 U/L (12-78) Alkaline Phosphatase 261 U/L (46-116) H C-Reactive Protein, Quantitative 5.3 mg/dL (0.00-0.90) H Pro-B-Type Natriuretic Peptide > 56059 pg/mL (0-125) H Total Protein 5.5 G/DL (6.4-8.2) L Albumin 2.0 G/DL (3.4-5.0) L Lipase 872 U/L (73-393) H Random Gentamicin Level 3.4 ug/mL Arterial Blood pH 7.474 (7.350-7.450) Arterial Blood Partial Pressure CO2 37.2 mmHg (35.0-45.0) Arterial Blood Partial Pressure O2 74.5 mmHg (75.0-100.0) L Arterial Blood HCO3 26.7 mmol/L (22.0-26.0) H Arterial Blood Oxygen Saturation 94.8 % (95-100) L Arterial Blood Base Excess 3.0 (-2-2) H Rojas Test Positive Plan Problems: (1) Dehydration (2) Acidosis (3) Anemia (4) Depression (5) Pancreatitis Assessment & Plan: 49F leukocytosis, elevated lip, lft's noted septic. work up ongoing npo iv fluids iv abx imaging ordered lipase worsening npo pending CT panc lip / jeanne improved diet as tolerated improving DAILY ESTIMATED NEEDS: Needs based on Critical care, wound, 56.8kg 28-33 kcals/kg [id number] total kcals 1.25-2 g protein/kg 71-114 g total protein Fluid per MD NUTRITION DIAGNOSIS: * Swallowing difficulty R/T dysphagia, respiratory status as evidenced by vent dep via trach, GT Dep. * Increase kcal and pro needs r/t wound healing and wasting as evidenced by stage 4 sacral wound. CURRENT TF:Nepro @ 40ml/hr x 20 hrs ENTERAL NUTRITION RECOMMENDATIONS: Nepro @ 45ml/hr x 20 hrs to provide 900ml, 1620kcal, 73g prot, 654ml free water * Increase TF to goal of 45ml/hr x20 hrs to better meet est needs * Water flush per MD * HOB over 30 degrees ADDITIONAL RECOMMENDATIONS: * Per SNF: HT=63", TH=284ofi -> rec calibrated bedscale wt (Bed reads 79.4kg) * Rec TF increase as above to better meet est needs * F/up w/ H&P * WC-> continue Vit C, ZnSO4, Nephrovite Add FRANKLIN in 4oz BID for wound care Lung bases: See below. Pleural space: Bilateral moderate low-attenuation, partially loculated pleural effusions with extensive passive atelectasis; correlate to exclude superimposed aspiration or pneumonia. Liver: Ill-defined right hepatic lobe. 2.9 cm hypodensity not well evaluated on this study. Gallbladder and bile ducts: Unremarkable. No calcified stones. No ductal dilation. Pancreas: Unremarkable. No ductal dilation. Spleen: Unremarkable. No splenomegaly. Adrenals: Unremarkable. No mass. Kidneys and ureters: Left nephroureteral stent in the decompressed left, atrophic renal collecting system. No evident urolithiasis. No hydronephrosis. Stomach and bowel: Unremarkable. No obstruction. No mucosal thickening. Intraperitoneal space: Moderate nonloculated ascites. No free air. Bones/joints: Potentially chronic appearing right intertrochanteric hip fracture. Possible sacral decubitus ulcer, recommend direct visualization. No dislocation. Soft tissues: Severe anasarca. Incompletely evaluated chronic aortic dissection not well seen on this study due to lack of IV contrast and severe anasarca. Vasculature: Descending thoracic aortic ectasia 4 cm diameter above the hiatus. No abdominal aortic aneurysm. Lymph nodes: Unremarkable. No enlarged lymph nodes. Tubes, lines and devices: Percutaneous gastrostomy tube. Norman catheter in decompressed urinary bladder. IMPRESSION: 1. Study substantially limited due to lack of IV contrast and severe anasarca and moderate nonloculated ascites. 2. Left nephroureteral stent in the decompressed left, atrophic renal collecting system. 3. No evident urolithiasis. 4. Incompletely evaluated chronic aortic dissection not well seen on this study due to lack of IV contrast and severe anasarca. 5. Bilateral moderate low-attenuation, partially loculated pleural effusions with extensive passive atelectasis; correlate to exclude superimposed aspiration or pneumonia. 6. Percutaneous gastrostomy tube. 7. Norman catheter in decompressed urinary bladder. 8. Likely chronic appearing right intertrochanteric hip fracture. 9. Possible sacral decubitus ulcer, recommend direct visualization. There is no acute intracranial hemorrhage, mass effect or cortical edema. There is no shift of the midline structures. The ventricles, cisterns and sulci are within normal limits for age. Minimal periventricular hypoattenuation is seen, a nonspecific finding. Extensive paranasal sinus disease with retention cyst partially visualized within the right maxillary sinus. Soft tissue prominence the posterior aspect of the turbinates also noted in the nasal cavity. This is not evaluated adequately or completely on this study but similar findings noted previously. IMPRESSION: No evidence of acute intracranial hemorrhage, mass effect or cortical edema. Extensive paranasal sinus disease. (6) Pleural effusion (7) Renal failure (8) Respiratory failure (9) Schizophrenia (10) Hypoxia (11) Sepsis (12) UTI (urinary tract infection) (13) Pneumonia (14) ARF (acute renal failure) (15) NSTEMI (non-ST elevated myocardial infarction) (16) Tracheostomy in place (17) Feeding by G-tube (18) JAVIER (acute kidney injury) (19) Acute encephalopathy (20) Sacral decubitus ulcer, stage IV Assessment & Plan: Pt presented on admission with Full thickness stage 4 Sacral Pressure injury which extends into R gluteal cheek. Base of wound is granular w ith bone exposure at base of sacrococcygeal. Pt presented on admission with tracheostomy, GT, Full Thickness Pressure Injury Sacrococcygeal.Base of wound is 40% soft necrosis, 60% noni with undermined borders(L)5.8cm x (W)5.5cm x (D)1.5cm, undermining clockwise 10-1 by 2.7cm @12o'clock.(+) Epibole along edges with scattered slough. Small area that is purple and indurated noted clockwise @7-8o'clock along borders.Small amt serous exudate noted.Mild odor noted. hyperpigmentation periwound. At L ischium are two areas of dry pink epithelial with surrounding hyperpigmentation. Both heels are boggy with [id number] erythema. Tx.Plan: Cleanse sacral wound with Saline. Loosely pack with Hydrogel impregnated kerlix. Apply Moisture Barrier Paste periwound. Cover with Optifoam drsg Daily and prn. Apply Cavilon Skin Barrier to both heels and malleoli. Cover eachsite with Optifoam drsgs. Change every 7 days and prn. Reposition at least every 2hours or as tolerated. Off-load heels with pillow. APM/Maxwell Mattress overlay. (21) Chronic respiratory failure (22) Hypokalemia (23) Ascites (24) Bacteremia (25) Hypernatremia (26) Proteinuria (27) Electrolyte imbalance (28) Pacemaker (29) ACS (acute coronary syndrome) (30) Aortic dissection, thoracic (31) Respiratory failure, acute and chronic (32) JAVIER (acute kidney injury) (33) Abrasion of lip, initial encounter (34) COPD with exacerbation (35) Elevated alkaline phosphatase level (36) Renal failure (ARF), acute on chronic (37) HCAP (healthcare-associated pneumonia) (38) Lane Alexis Dec 07, 2019 14:07
--- NOTE | 2019-12-07 15:23 | General Progress Note ---
Subjective Constitutional: Reports: no symptoms HEENT: Reports: no symptoms Respiratory: Reports: no symptoms Gastrointestinal/Abdominal: Reports: no symptoms Genitourinary: Reports: no symptoms Neurologic/Psychiatric: Reports: other - Facial twitching Endocrine: Reports: no symptoms Hematologic/Lymphatic: Reports: no symptoms Allergies: Coded Allergies: No Known Allergies (Unverified , 10/10/17) Objective Last 24 Hour Vital Signs Date Time Temp Pulse Resp B/P (MAP) Pulse Ox O2 Delivery O2 Flow Rate FiO2 12/07/19 13:11 62 20 60 12/07/19 12:31 60 12/07/19 12:00 97.5 61 21 145/66 (92) 98 12/07/19 12:00 40 12/07/19 12:00 Mechanical Ventilator 12/07/19 11:19 60 21 60 12/07/19 09:06 58 21 60 12/07/19 08:40 56 12/07/19 08:11 54 146/78 12/07/19 08:09 54 146/78 12/07/19 08:01 97.5 54 18 146/78 (100) 98 12/07/19 08:00 Mechanical Ventilator 12/07/19 08:00 40 12/07/19 07:35 55 20 60 12/07/19 05:10 54 20 60 12/07/19 04:00 40 12/07/19 04:00 57 12/07/19 04:00 97.7 58 20 140/66 (90) 98 12/07/19 04:00 Mechanical Ventilator 12/07/19 03:12 61 20 60 12/07/19 00:47 63 20 60 12/07/19 00:00 63 12/07/19 00:00 Mechanical Ventilator 12/07/19 00:00 97.3 63 20 146/68 (94) 97 12/06/19 23:12 60 12/06/19 23:12 62 20 50 12/06/19 21:00 62 146/64 12/06/19 20:43 50 12/06/19 20:42 63 20 40 12/06/19 20:00 97.7 64 20 147/62 (90) 94 12/06/19 20:00 40 12/06/19 20:00 62 12/06/19 20:00 Mechanical Ventilator 12/06/19 18:50 62 20 40 12/06/19 17:16 60 20 40 12/06/19 16:00 97.2 70 18 139/66 (90) 95 12/06/19 16:00 40 12/06/19 16:00 61 12/06/19 16:00 Mechanical Ventilator 12/06/19 15:36 61 20 139/66 95 Intake and Output 12/06/19 12/07/19 19:00 07:00 Intake Total 1020 ml 1575 ml Output Total 500 ml 850 ml Balance 520 ml 725 ml Intake Free Water 60 ml 200 ml IV Total 600 ml 1015 ml Tube Feeding 360 ml 360 ml Output Urine Total 500 ml 850 ml # Bowel Movements 1 Laboratory Tests 12/07/19 03:00: White Blood Count 6.2, Red Blood Count 2.93L, Hemoglobin 8.5L, Hematocrit 25.8L, Mean Corpuscular Volume 88, Mean Corpuscular Hemoglobin 28.8, Mean Corpuscular Hemoglobin Concent 32.8, Red Cell Distribution Width 14.1, Platelet Count 342, Mean Platelet Volume 5.0L, Neutrophils (%) (Auto) 64.9, Lymphocytes (%) (Auto) 30.1, Monocytes (%) (Auto) 4.2, Eosinophils (%) (Auto) 0.5, Basophils (%) (Auto) 0.2, Sodium Level 134L, Potassium Level 3.3L, Chloride Level 97L, Carbon Dioxide Level 25, Anion Gap 12, Blood Urea Nitrogen 124H, Creatinine 3.5H, Estimat Glomerular Filtration Rate 14.0, Glucose Level 109H, Calcium Level 7.1L, Phosphorus Level 4.7, Magnesium Level 3.0H, Total Bilirubin 0.3, Direct Bilirubin < 0.1, Aspartate Amino Transf (AST/SGOT) 42H, Alanine Aminotransferase (ALT/SGPT) 12, Alkaline Phosphatase 261H, C-Reactive Protein, Quantitative 5.3H, Pro-B-Type Natriuretic Peptide > 26004J, Total Protein 5.5L, Albumin 2.0L, Lipase 872H, Random Gentamicin Level 3.4 12/07/19 10:59: Arterial Blood pH 7.474H, Arterial Blood Partial Pressure CO2 37.2, Arterial Blood Partial Pressure O2 74.5L, Arterial Blood HCO3 26.7H, Arterial Blood Oxygen Saturation 94.8L, Arterial Blood Base Excess 3.0H, Rojas Test Positive Height (Feet): 5 Height (Inches): 4.00 Weight (Pounds): 150 General Appearance: WD/WN, no apparent distress, alert, other - Responsive and smiles attention span increased from very brief yesterday to near normal today EENT: normal ENT inspection Neck: supple Cardiovascular: regular rhythm Respiratory/Chest: lungs clear, normal breath sounds, no respiratory distress, no accessory muscle use Abdomen: normal bowel sounds, non tender, soft, no organomegaly, no mass Extremities: non-tender Neurologic: alert, responsive, other - Depressive defect and anxiety affect resolved he appeared much more focused today than yesterday Skin: warm/dry Assessment/Plan Status Narrative Patient is awake alert febrile and hemodynamically stable. There was considerable change in patient condition is her mental status for the last several days patient was nonresponsive with deep sleep and responded only to intense nausea stimuli during this. Narcotic analgesic or antipsychotic will be removed yesterday while being without any of the medications she was still not responding and having twitching in her facial muscle twitching CT scan of the brain was ordered and patient was given Ativan 0.5 mg IV today her condition is markedly improved she is awake alert afebrile near normal attention span she smiles socially does not talk she has appropriately by head no and by eye closure for about a week point review patient pH is increased from 7.1-7.46 her bicarb increase from 10-26 today during this time desaturation H&H O2 level remained stable patient resuming twitching today for which she was placed on amantadine 100 mg twice daily repeat laboratory tests will be done in a.m. BUN/creatinine remain 125 3.4 respectively however the urine volume today for the daytime shift is more than 600 cc repeat laboratory tests will be done in a.m. Lucas Canales MD, MD Dec 07, 2019 15:23
--- NOTE | 2019-12-07 15:41 | Nephrology Progress Note ---
Assessment/Plan Problem List: (1) JAVIER (acute kidney injury) (2) Renal failure (ARF), acute on chronic (3) Feeding by G-tube (4) Tracheostomy in place (5) Electrolyte imbalance (6) Anemia (7) Respiratory failure, acute and chronic (8) Elevated lipase Assessment Patient is presented with sepsis and pneumonia and UTI, hypoxia Patient has acute renal failure, possible underlying chronic kidney failure Severe anemia Electrolyte imbalances: Hyponatremia, hypo-kalemia Chronic respiratory failure, COPD exacerbation Has sacral decubitus ulcer stage IV PEG Plan December 06: Renal parameters unchanged. Slightly lower serum sodium and potassium. IV fluid discontinued. Potassium supplement given. Creatinine clearance remains around 14/15 mL/min. Patient edematous. May require a course of dialysis treatment and ultrafiltration. Will discuss with Dr. Dong. December 05: Renal parameters unchanged. Discussed with ERASMO Echevarria. Electrolyte abnormalities addressed. Continue to monitor renal parameters. Will discuss with PMD possible need for dialysis trial. Serum lipase decreasing. December 04: Patient started on IV fluid with sodium bicarb by Dr. Dong. So at this time we will hold the diuretics. Will follow-up renal parameters and electrolytes. Continue rest of management. Continue monitor lipase level December 03: No chemistry panel done today. Appears clinically stable. Will order renal parameters and lipase panel for tomorrow. Continue per consultants. Patient remains full code. December 02: Labs reviewed. Serum lipase decreasing. On 20 cc an hour Nepro via GT tube. Renal parameters unchanged. Urine output well maintained. Continue per consultants. White blood cells 17,000, hemoglobin 8.9. December 01: Lab reviewed. Hemoglobin higher. Serum creatinine 3.4. Creatinine clearance calculated . Serum lipase lowering. Continue per current management. November 30: Patient transfused. Hemoglobin higher. Serum sodium lower. Renal parameters unchanged. Trial of 3% saline. Continue monitor renal parameters. May require dialysis treatment depending on the how her condition evolves. Previously Consider transfusion Urine studies Adjust blood pressure medication Albumin bolus Norman catheter, intake and output Monitor renal parameters Avoid nephrotoxic's Antibiotics Per orders Subjective ROS Limited/Unobtainable: Yes Objective Objective Last 24 Hour Vital Signs Date Time Temp Pulse Resp B/P (MAP) Pulse Ox O2 Delivery O2 Flow Rate FiO2 12/07/19 13:11 62 20 60 12/07/19 12:31 60 10/24/20 12:00 97.5 61 21 145/66 (92) 98 12/07/19 12:00 40 12/07/19 12:00 Mechanical Ventilator 12/07/19 11:19 60 21 60 12/07/19 09:06 58 21 60 12/07/19 08:40 56 12/07/19 08:11 54 146/78 12/07/19 08:09 54 146/78 12/07/19 08:01 97.5 54 18 146/78 (100) 98 12/07/19 08:00 Mechanical Ventilator 12/07/19 08:00 40 12/07/19 07:35 55 20 60 12/07/19 05:10 54 20 60 12/07/19 04:00 40 12/07/19 04:00 57 12/07/19 04:00 97.7 58 20 140/66 (90) 98 12/07/19 04:00 Mechanical Ventilator 12/07/19 03:12 61 20 60 12/07/19 00:47 63 20 60 12/07/19 00:00 63 12/07/19 00:00 Mechanical Ventilator 12/07/19 00:00 97.3 63 20 146/68 (94) 97 12/06/19 23:12 60 12/06/19 23:12 62 20 50 12/06/19 21:00 62 146/64 12/06/19 20:43 50 12/06/19 20:42 63 20 40 12/06/19 20:00 97.7 64 20 147/62 (90) 94 12/06/19 20:00 40 12/06/19 20:00 62 12/06/19 20:00 Mechanical Ventilator 12/06/19 18:50 62 20 40 12/06/19 17:16 60 20 40 12/06/19 16:00 97.2 70 18 139/66 (90) 95 12/06/19 16:00 40 12/06/19 16:00 61 12/06/19 16:00 Mechanical Ventilator Intake and Output 12/06/19 12/07/19 19:00 07:00 Intake Total 1020 ml 1575 ml Output Total 500 ml 850 ml Balance 520 ml 725 ml Intake Free Water 60 ml 200 ml IV Total 600 ml 1015 ml Tube Feeding 360 ml 360 ml Output Urine Total 500 ml 850 ml # Bowel Movements 1 Laboratory Tests 12/07/19 03:00: White Blood Count 6.2, Red Blood Count 2.93L, Hemoglobin 8.5L, Hematocrit 25.8L, Mean Corpuscular Volume 88, Mean Corpuscular Hemoglobin 28.8, Mean Corpuscular Hemoglobin Concent 32.8, Red Cell Distribution Width 14.1, Platelet Count 342, Mean Platelet Volume 5.0L, Neutrophils (%) (Auto) 64.9, Lymphocytes (%) (Auto) 30.1, Monocytes (%) (Auto) 4.2, Eosinophils (%) (Auto) 0.5, Basophils (%) (Auto) 0.2, Sodium Level 134L, Potassium Level 3.3L, Chloride Level 97L, Carbon Dioxide Level 25, Anion Gap 12, Blood Urea Nitrogen 124H, Creatinine 3.5H, Estimat Glomerular Filtration Rate 14.0, Glucose Level 109H, Calcium Level 7.1L, Phosphorus Level 4.7, Magnesium Level 3.0H, Total Bilirubin 0.3, Direct Bilirubin < 0.1, Aspartate Amino Transf (AST/SGOT) 42H, Alanine Aminotransferase (ALT/SGPT) 12, Alkaline Phosphatase 261H, C-Reactive Protein, Quantitative 5.3H, Pro-B-Type Natriuretic Peptide > 01289P, Total Protein 5.5L, Albumin 2.0L, Lipase 872H, Random Gentamicin Level 3.4 12/07/19 10:59: Arterial Blood pH 7.474H, Arterial Blood Partial Pressure CO2 37.2, Arterial Blood Partial Pressure O2 74.5L, Arterial Blood HCO3 26.7H, Arterial Blood Oxygen Saturation 94.8L, Arterial Blood Base Excess 3.0H, Rojas Test Positive Height (Feet): 5 Height (Inches): 4.00 Weight (Pounds): 150 General Appearance: no apparent distress EENT: other - Trach to vent Cardiovascular: normal rate Respiratory/Chest: decreased breath sounds Abdomen: distended Johnny Houston MD Dec 07, 2019 15:41
[2019-12-07 16:00] VITALS: BP 150/68
[2019-12-07] MEDS: Amantadine 100mg cap GT SCH (17:18)
[2019-12-07 20:00] VITALS: BP 144/63
[2019-12-07] MEDS: Miralax 17gm pkt GT SCH (20:48)
[2019-12-08] VITALS: BP 158/83
[2019-12-08] MEDS: Meropenem 500 MG in NS 55 ML IVPB SCH ×2 (03:20→15:23)
[2019-12-08] MEDS: Metoclopramide 10mg/2ml Inj IVP SCH ×4 (03:20→21:10)
[2019-12-08 04:00] VITALS: BP 160/89
[2019-12-08 05:38] LABS: BASOPHILS % (AUTO) 0.3 % (0.0-2.0); EOSINOPHILS % (AUTO) 3.8 % (0.0-3.0); HEMATOCRIT 27.3 % (37.0-47.0); HEMOGLOBIN 8.8 G/DL (12.0-16.0); LYMPHOCYTES % (AUTO) 19.2 % (20.0-45.0); MEAN CORPUSCULAR VOLUME 87 FL (80-99); NEUTROPHILS % (AUTO) 72.7 % (45.0-75.0); PLATELET COUNT 348 K/UL (150-450); RED BLOOD COUNT 3.13 M/UL (4.20-5.40); WHITE BLOOD COUNT 9.6 K/UL (4.8-10.8)
--- NOTE | 2019-12-08 06:10 | Hematology/Onc Progress Note ---
Assessment/Plan Assessment/Plan Assessment and Recs # Leukocytosis, now with uti, though in past has had pna, pacemaker site infection and bacteremia --> is s/p pm removal and also pocket infection is better --> per cards recs in re to tach/davis --> wbc 29-->16-->17-->7 --> ABX vanc/angelo-->gent/angelo --> ID recs are noted # Anemia of chronic disease due to underlying chronic medical issues, multifactorial --> Anemia workup has been reviewed, cw acd --> No evidence of hemolysis is noted, peripheral smear has been reviewed. --> Hgb goal >7. Transfuse prn. --> Epogen started sq --> Medications have been reviewed --> low threshold for gi evaluation in case has occult + --> hgb 7.1-->7.8-->>>6.7->9.2-->8.9->8.2->8.5 --> 1 unit prbc10/ --> gi eval as needed # Thrombocytois is likely reactive process, is s/p infection --> plt trend 358-->361->349 --> p smear reviewed # Acute hypoxic respiratory failure s/p intubation 11/23- ?ARDS --> on vent/trach # JAVIER initially >2 --> on ivfs -> may need hd per Dr. Houston # Elevated d-dimer --> venous duplex and v/q scan neg --> negative results # Dysphagia s/p peg --> as per gi # Thoracic aortic dissection s/p repair early 2017 # Psychiatric history on ativan/haldol # [place] resident # Dvt ppx --> heparin sq The timing of this note does not necessarily reflect the time of the patient was seen. Greatly appreciate consultation. Subjective Cardiovascular: Denies: no symptoms, chest pain, edema, irregular heart rate, lightheadedness, palpitations, syncope, other Respiratory: Denies: no symptoms, cough, shortness of breath, SOB with excertion, SOB at rest, sputum, wheezing, other Gastrointestinal/Abdominal: Denies: no symptoms, abdomen distended, abdominal pain, black stools, tarry stools, blood in stool, constipated, diarrhea, difficulty swallowing, nausea, poor appetite, poor fluid intake, rectal bleeding, vomiting, other Genitourinary: Denies: no symptoms, burning, discharge, frequency, flank pain, hematuria, incontinence, pain, urgency, other Neurologic/Psychiatric: Denies: no symptoms, anxiety, depressed, emotional problems, headache, numbness, paresthesia, pre-existing deficit, seizure, tingling, tremors, weakness, other Endocrine: Denies: no symptoms, excessive sweating, flushing, intolerance to cold, intolerance to heat, increased hunger, increased thirst, increased urine, unexplained weight gain, unexplained weight loss, other Hematologic/Lymphatic: Denies: no symptoms, anemia, easy bleeding, easy bruising, adenopathy, other Allergies: Coded Allergies: No Known Allergies (Unverified , 10/10/17) Subjective 12/01 on vent, with gtube and raymond, no bleeding, labs are noted 12/02 labs noted, remains on abx, dw Rn at bedside is on abx, hgb 8.9 12/03 roman Rn in am, with drainage blood from gtube site, and mouth,gi aware 12/04 on vent, hgb 8.2, no bleeding, k was given overnight 12/05 labs reviewed, on vent, no bleeding, gb 8.5, no hemolysis is seen 12/07 asymptomatic, a+o x1, no bleeding, meds reviewed, labs noted Objective Objective Current Medications Medications (Trade) Dose Ordered Sig/Penny Route PRN Reason Start Time Stop Time Status Last Admin Dose Admin Acetaminophen (Tylenol) 650 mg Q4H PRN GT Temp >100.5 11/29/19 04:30 12/29/19 04:29 12/06/19 09:14 Amantadine HCl (Symmetrel) 100 mg TWICE A DAY GT 12/07/19 18:00 01/06/20 17:59 12/07/19 17:18 Amlodipine Besylate (Norvasc) 5 mg DAILY GT 12/06/19 09:00 01/05/20 08:59 12/07/19 08:09 Ascorbic Acid (Vitamin C) 500 mg DAILY GT 11/29/19 09:00 12/29/19 08:59 12/07/19 08:09 Clonidine HCl (Catapres TTS-1) 1 patch ONCE A WEEK TDERMAL 12/03/19 09:00 03/02/20 08:59 12/03/19 09:10 Clotrimazole (Lotrimin) 1 applic THREE TIMES A DAY TOPIC 12/01/19 13:00 02/29/20 12:59 12/07/19 17:18 Epoetin Gelacio (Epoetin Gelacio-EPBX(NON ESRD)) 10,000 unit MON-WED-MON SUBQ 11/29/19 21:00 02/27/20 20:59 12/06/19 21:00 Gentamicin Protocol (Gentamicin pharmacy to dose) 1 ea DAILY PRN MISC Per rx protocol 12/02/19 18:00 01/01/20 17:59 Heparin Sodium (Porcine) (Heparin 5000 units/ml) 5,000 units EVERY 12 HOURS SUBQ 11/29/19 09:00 01/13/20 08:59 12/07/19 20:50 Lansoprazole (Prevacid) 30 mg DAILY GT 12/01/19 12:00 12/31/19 11:59 12/07/19 08:08 Meropenem 500 mg/ Sodium Chloride 55 ml @ 110 mls/hr Q12HR@0300,1500 IVPB 12/05/19 15:00 12/08/19 16:00 12/08/19 03:20 Metoclopramide HCl (Reglan) 10 mg Q6H IVP 12/04/19 10:00 01/03/20 09:59 12/08/19 03:20 Metoprolol Tartrate (Lopressor) 12.5 mg Q12HR ORAL 12/03/19 21:00 03/02/20 08:59 12/07/19 20:48 Polyethylene Glycol (Miralax) 17 gm BEDTIME GT 11/29/19 21:00 12/29/19 20:59 12/07/19 20:48 Vitamin B Complex/ Vit C/Folic Acid (Nephrovite) 1 tab DAILY GT 11/29/19 09:00 12/29/19 08:59 12/07/19 08:09 Zinc Sulfate (Zinc Sulfate) 220 mg DAILY GT 11/29/19 09:00 02/27/20 08:59 12/07/19 08:08 Last 24 Hour Vital Signs Date Time Temp Pulse Resp B/P (MAP) Pulse Ox O2 Delivery O2 Flow Rate FiO2 12/08/19 04:44 68 22 60 12/08/19 04:00 40 12/08/19 04:00 98.9 76 19 160/89 (112) 100 12/08/19 04:00 75 12/08/19 04:00 Mechanical Ventilator 12/08/19 02:55 74 24 60 12/08/19 01:17 67 22 60 12/08/19 00:00 98.3 83 19 158/83 (108) 99 12/08/19 00:00 Mechanical Ventilator 12/08/19 00:00 69 12/08/19 00:00 40 12/07/19 22:35 69 25 60 12/07/19 21:11 67 21 60 12/07/19 20:48 72 160/74 12/07/19 20:00 Mechanical Ventilator 12/07/19 20:00 72 12/07/19 20:00 40 12/07/19 20:00 98.6 70 19 144/63 (90) 98 12/07/19 19:22 73 23 60 12/07/19 17:10 65 20 60 12/07/19 16:39 73 12/07/19 16:00 98.1 64 19 150/68 (95) 98 12/07/19 16:00 40 12/07/19 16:00 Mechanical Ventilator 12/07/19 15:29 64 20 60 12/07/19 13:11 62 20 60 12/07/19 12:31 60 12/07/19 12:00 97.5 61 21 145/66 (92) 98 12/07/19 12:00 40 12/07/19 12:00 Mechanical Ventilator 12/07/19 11:19 60 21 60 12/07/19 09:06 58 21 60 12/07/19 08:40 56 12/07/19 08:11 54 146/78 12/07/19 08:09 54 146/78 12/07/19 08:01 97.5 54 18 146/78 (100) 98 12/07/19 08:00 Mechanical Ventilator 12/07/19 08:00 40 12/07/19 07:35 55 20 60 12/07/19 05:10 54 20 60 12/07/19 04:00 40 12/07/19 04:00 57 12/07/19 04:00 97.7 58 20 140/66 (90) 98 12/07/19 04:00 Mechanical Ventilator 12/07/19 03:12 61 20 60 12/07/19 00:47 63 20 60 12/07/19 00:00 63 12/07/19 00:00 Mechanical Ventilator 12/07/19 00:00 97.3 63 20 146/68 (94) 97 12/06/19 23:12 60 12/06/19 23:12 62 20 50 12/06/19 21:00 62 146/64 12/06/19 20:43 50 12/06/19 20:42 63 20 40 12/06/19 20:00 97.7 64 20 147/62 (90) 94 12/06/19 20:00 40 12/06/19 20:00 62 12/06/19 20:00 Mechanical Ventilator 12/06/19 18:50 62 20 40 12/06/19 17:16 60 20 40 12/06/19 16:00 97.2 70 18 139/66 (90) 95 12/06/19 16:00 40 12/06/19 16:00 61 12/06/19 16:00 Mechanical Ventilator 12/06/19 15:36 61 20 139/66 95 12/06/19 15:06 63 20 140/60 96 12/06/19 14:59 61 20 40 12/06/19 12:55 73 22 40 12/06/19 12:00 Mechanical Ventilator 12/06/19 12:00 40 12/06/19 12:00 97.9 64 18 143/63 (89) 97 12/06/19 11:40 56 12/06/19 11:00 55 20 40 12/06/19 09:44 97.8 12/06/19 09:15 61 149/81 12/06/19 09:14 61 149/81 12/06/19 09:00 61 20 40 12/06/19 08:00 40 12/06/19 08:00 97.8 61 18 150/67 (94) 100 12/06/19 08:00 Mechanical Ventilator 12/06/19 07:47 60 12/06/19 07:15 61 22 40 Intake and Output 12/07/19 12/08/19 19:00 07:00 Intake Total 625 ml 455 ml Output Total 600 ml Balance 25 ml 455 ml Intake Free Water 170 ml IV Total 55 ml 55 ml Tube Feeding 400 ml 400 ml Output Urine Total 600 ml # Bowel Movements 2 Labs Test 12/06/19 02:45 12/07/19 03:00 12/07/19 10:59 12/08/19 03:17 White Blood Count 6.4 K/UL (4.8-10.8) 6.2 K/UL (4.8-10.8) 9.6 K/UL (4.8-10.8) Red Blood Count 3.01 M/UL (4.20-5.40) 2.93 M/UL (4.20-5.40) 3.13 M/UL (4.20-5.40) Hemoglobin 8.5 G/DL (12.0-16.0) 8.5 G/DL (12.0-16.0) 8.8 G/DL (12.0-16.0) Hematocrit 26.5 % (37.0-47.0) 25.8 % (37.0-47.0) 27.3 % (37.0-47.0) Mean Corpuscular Volume 88 FL (80-99) 88 FL (80-99) 87 FL (80-99) Mean Corpuscular Hemoglobin 28.4 PG (27.0-31.0) 28.8 PG (27.0-31.0) 28.2 PG (27.0-31.0) Mean Corpuscular Hemoglobin Concent 32.2 G/DL (32.0-36.0) 32.8 G/DL (32.0-36.0) 32.3 G/DL (32.0-36.0) Red Cell Distribution Width 14.3 % (11.6-14.8) 14.1 % (11.6-14.8) 14.0 % (11.6-14.8) Platelet Count 349 K/UL (150-450) 342 K/UL (150-450) 348 K/UL (150-450) Mean Platelet Volume 5.0 FL (6.5-10.1) 5.0 FL (6.5-10.1) 5.1 FL (6.5-10.1) Neutrophils (%) (Auto) 63.4 % (45.0-75.0) 64.9 % (45.0-75.0) 72.7 % (45.0-75.0) Lymphocytes (%) (Auto) 26.1 % (20.0-45.0) 30.1 % (20.0-45.0) 19.2 % (20.0-45.0) Monocytes (%) (Auto) 5.3 % (1.0-10.0) 4.2 % (1.0-10.0) 4.0 % (1.0-10.0) Eosinophils (%) (Auto) 4.9 % (0.0-3.0) 0.5 % (0.0-3.0) 3.8 % (0.0-3.0) Basophils (%) (Auto) 0.4 % (0.0-2.0) 0.2 % (0.0-2.0) 0.3 % (0.0-2.0) Sodium Level 137 MMOL/L (136-145) 134 MMOL/L (136-145) Potassium Level 3.3 MMOL/L (3.5-5.1) 3.3 MMOL/L (3.5-5.1) Chloride Level 99 MMOL/L (98-107) 97 MMOL/L (98-107) Carbon Dioxide Level 24 MMOL/L (21-32) 25 MMOL/L (21-32) Blood Urea Nitrogen 125 mg/dL (7-18) 124 mg/dL (7-18) Creatinine 3.5 MG/DL (0.55-1.30) 3.5 MG/DL (0.55-1.30) Estimat Glomerular Filtration Rate 14.0 mL/min (>60) 14.0 mL/min (>60) Glucose Level 122 MG/DL (74-106) 109 MG/DL (74-106) Uric Acid 7.5 MG/DL (2.6-7.2) Calcium Level 7.1 MG/DL (8.5-10.1) 7.1 MG/DL (8.5-10.1) Phosphorus Level 4.8 MG/DL (2.5-4.9) 4.7 MG/DL (2.5-4.9) Magnesium Level 3.0 MG/DL (1.8-2.4) 3.0 MG/DL (1.8-2.4) Total Bilirubin 0.3 MG/DL (0.2-1.0) 0.3 MG/DL (0.2-1.0) Aspartate Amino Transf (AST/SGOT) 32 U/L (15-37) 42 U/L (15-37) Alanine Aminotransferase (ALT/SGPT) 8 U/L (12-78) 12 U/L (12-78) Alkaline Phosphatase 207 U/L (46-116) 261 U/L (46-116) C-Reactive Protein, Quantitative 5.0 mg/dL (0.00-0.90) 5.3 mg/dL (0.00-0.90) Pro-B-Type Natriuretic Peptide > 53109 pg/mL (0-125) > 74578 pg/mL (0-125) Total Protein 5.4 G/DL (6.4-8.2) 5.5 G/DL (6.4-8.2) Albumin 2.1 G/DL (3.4-5.0) 2.0 G/DL (3.4-5.0) Globulin 3.3 g/dL Albumin/Globulin Ratio 0.6 (1.0-2.7) Lipase 886 U/L (73-393) 872 U/L (73-393) Anion Gap 12 mmol/L (5-15) Direct Bilirubin < 0.1 MG/DL (0.0-0.3) Random Gentamicin Level 3.4 ug/mL Arterial Blood pH 7.474 (7.350-7.450) Arterial Blood Partial Pressure CO2 37.2 mmHg (35.0-45.0) Arterial Blood Partial Pressure O2 74.5 mmHg (75.0-100.0) Arterial Blood HCO3 26.7 mmol/L (22.0-26.0) Arterial Blood Oxygen Saturation 94.8 % (95-100) Arterial Blood Base Excess 3.0 (-2-2) Rojas Test Positive Height (Feet): 5 Height (Inches): 4.00 Weight (Pounds): 150 Objective Physical Exam: Vitals: reviewed General: NAD HEENT: nc, at Neck: supple ++tracn/vent Chest: clear breath sounds bilaterally Cardiovascular: RRR, no s3, s4 Abdomen: soft, nontender, nd +gtube Extremities: no cce, normal range of motion Neuro: alert ++raymond Kleynberg,Evan L. MD Dec 08, 2019 06:10
[2019-12-08 06:23] LABS: ALBUMIN 2.2 G/DL (3.4-5.0); ALBUMIN/GLOBULIN RATIO 0.5 (1.0-2.7); BILIRUBIN,TOTAL 0.3 MG/DL (0.2-1.0); CALCIUM 7.6 MG/DL (8.5-10.1); CREATININE 3.6 MG/DL (0.55-1.30); POTASSIUM 3.3 MMOL/L (3.5-5.1)
[2019-12-08 06:24] LABS: PHOSPHORUS 4.5 MG/DL (2.5-4.9)
[2019-12-08 08:00] VITALS: BP 169/81
--- NOTE | 2019-12-08 08:01 | Pulmonology Progress Note ---
Subjective ROS Limited/Unobtainable: Yes Interval Events: None new Constitutional: Reports: no symptoms HEENT: Repors: no symptoms Respiratory: Reports: no symptoms Cardiovascular: Reports: no symptoms Gastrointestinal/Abdominal: Reports: no symptoms Psychiatric: Reports: no symptoms Allergies: Coded Allergies: No Known Allergies (Unverified , 10/10/17) All Systems: reviewed and negative except above Objective Last 24 Hour Vital Signs Date Time Temp Pulse Resp B/P (MAP) Pulse Ox O2 Delivery O2 Flow Rate FiO2 12/08/19 07:10 80 20 60 12/08/19 04:44 68 22 60 12/08/19 04:00 40 12/08/19 04:00 98.9 76 19 160/89 (112) 100 12/08/19 04:00 75 12/08/19 04:00 Mechanical Ventilator 12/08/19 02:55 74 24 60 12/08/19 01:17 67 22 60 12/08/19 00:00 98.3 83 19 158/83 (108) 99 12/08/19 00:00 Mechanical Ventilator 12/08/19 00:00 69 12/08/19 00:00 40 12/07/19 22:35 69 25 60 12/07/19 21:11 67 21 60 12/07/19 20:48 72 160/74 12/07/19 20:00 Mechanical Ventilator 12/07/19 20:00 72 12/07/19 20:00 40 12/07/19 20:00 98.6 70 19 144/63 (90) 98 12/07/19 19:22 73 23 60 12/07/19 17:10 65 20 60 12/07/19 16:39 73 12/07/19 16:00 98.1 64 19 150/68 (95) 98 12/07/19 16:00 40 12/07/19 16:00 Mechanical Ventilator 12/07/19 15:29 64 20 60 12/07/19 13:11 62 20 60 12/07/19 12:31 60 12/07/19 12:00 97.5 61 21 145/66 (92) 98 12/07/19 12:00 40 12/07/19 12:00 Mechanical Ventilator 12/07/19 11:19 60 21 60 12/07/19 09:06 58 21 60 12/07/19 08:40 56 12/07/19 08:11 54 146/78 12/07/19 08:09 54 146/78 12/07/19 08:01 97.5 54 18 146/78 (100) 98 12/07/19 08:00 Mechanical Ventilator 12/07/19 08:00 40 Intake and Output 12/07/19 12/08/19 19:00 07:00 Intake Total 625 ml 495 ml Output Total 600 ml 700 ml Balance 25 ml -205 ml Intake Free Water 170 ml IV Total 55 ml 55 ml Tube Feeding 400 ml 440 ml Output Urine Total 600 ml 700 ml # Bowel Movements 2 General Appearance: no acute distress HEENT: normocephalic, status post trach Respiratory: chest wall non-tender, lungs clear Cardiovascular: normal peripheral pulses Abdomen: normal bowel sounds Laboratory Tests 12/07/19 10:59: Arterial Blood pH 7.474H, Arterial Blood Partial Pressure CO2 37.2, Arterial Blood Partial Pressure O2 74.5L, Arterial Blood HCO3 26.7H, Arterial Blood Oxygen Saturation 94.8L, Arterial Blood Base Excess 3.0H, Rojas Test Positive 12/08/19 03:17: White Blood Count 9.6#, Red Blood Count 3.13L, Hemoglobin 8.8L, Hematocrit 27.3L , Mean Corpuscular Volume 87, Mean Corpuscular Hemoglobin 28.2, Mean Corpuscular Hemoglobin Concent 32.3, Red Cell Distribution Width 14.0, Platelet Count 348, Mean Platelet Volume 5.1L, Neutrophils (%) (Auto) 72.7, Lymphocytes (%) (Auto) 19.2L, Monocytes (%) (Auto) 4.0, Eosinophils (%) (Auto) 3.8H, Basophils (%) (Auto) 0.3, Sodium Level 134L, Potassium Level 3.3L, Chloride Level 96L, Carbon Dioxide Level 25, Anion Gap 13, Blood Urea Nitrogen 118H, Creatinine 3.6H, Estimat Glomerular Filtration Rate 13.6, Glucose Level 98, Uric Acid 7.1, Calcium Level 7.6L, Phosphorus Level 4.5, Magnesium Level 3.1H, Total Bilirubin 0.3, Aspartate Amino Transf (AST/SGOT) 65H, Alanine Aminotransferase (ALT/SGPT) 28, Alkaline Phosphatase 358H, Total Protein 6.7, Albumin 2.2L, Globulin 4.5, Albumin/Globulin Ratio 0.5L, Random Gentamicin Level 2.9 Current Medications Medications (Trade) Dose Ordered Sig/Penny Route PRN Reason Start Time Stop Time Status Last Admin Dose Admin Acetaminophen (Tylenol) 650 mg Q4H PRN GT Temp >100.5 11/29/19 04:30 12/29/19 04:29 12/06/19 09:14 Amantadine HCl (Symmetrel) 100 mg TWICE A DAY GT 12/07/19 18:00 01/06/20 17:59 12/07/19 17:18 Amlodipine Besylate (Norvasc) 5 mg DAILY GT 12/06/19 09:00 01/05/20 08:59 12/07/19 08:09 Ascorbic Acid (Vitamin C) 500 mg DAILY GT 11/29/19 09:00 12/29/19 08:59 12/07/19 08:09 Clonidine HCl (Catapres TTS-1) 1 patch ONCE A WEEK TDERMAL 12/03/19 09:00 03/02/20 08:59 12/03/19 09:10 Clotrimazole (Lotrimin) 1 applic THREE TIMES A DAY TOPIC 12/01/19 13:00 02/29/20 12:59 12/07/19 17:18 Epoetin Gelacio (Epoetin Gelacio-EPBX(NON ESRD)) 10,000 unit MON-MON-MON SUBQ 11/29/19 21:00 02/27/20 20:59 12/06/19 21:00 Gentamicin Protocol (Gentamicin pharmacy to dose) 1 ea DAILY PRN MISC Per rx protocol 12/02/19 18:00 01/01/20 17:59 Heparin Sodium (Porcine) (Heparin 5000 units/ml) 5,000 units EVERY 12 HOURS SUBQ 11/29/19 09:00 01/13/20 08:59 12/07/19 20:50 Lansoprazole (Prevacid) 30 mg DAILY GT 12/01/19 12:00 12/31/19 11:59 12/07/19 08:08 Meropenem 500 mg/ Sodium Chloride 55 ml @ 110 mls/hr Q12HR@0300,1500 IVPB 12/05/19 15:00 12/08/19 16:00 12/08/19 03:20 Metoclopramide HCl (Reglan) 10 mg Q6H IVP 12/04/19 10:00 01/03/20 09:59 12/08/19 03:20 Metoprolol Tartrate (Lopressor) 12.5 mg Q12HR ORAL 12/03/19 21:00 03/02/20 08:59 12/07/19 20:48 Polyethylene Glycol (Miralax) 17 gm BEDTIME GT 11/29/19 21:00 12/29/19 20:59 12/07/19 20:48 Vitamin B Complex/ Vit C/Folic Acid (Nephrovite) 1 tab DAILY GT 11/29/19 09:00 12/29/19 08:59 12/07/19 08:09 Zinc Sulfate (Zinc Sulfate) 220 mg DAILY GT 11/29/19 09:00 02/27/20 08:59 12/07/19 08:08 Assessment/Plan Assessment/Plan Assessment: COVID19 neg Sepsis UTI Pleural effusion (small) PNA Low grade fever Leukocytosis,resolved Acute on chronic hypoxic resp failure JAVIER on CKD- hx of Recent MDR PnA, sp rx H/o PPM site (pocket) infection and pocket abscess 2ry to S. epi-11/2018, sp >6weeks IV vancomycin CAD s/p CABG GERD/gastritis Afib HTN Dysphagia sp GT Aortic dissection s/p repair 2017, S/p PPM Parkinson's Disease Schizophrenia Anxiety COPD Chronic resp failure s/p trach Hx of tracheal bleeding [place] resident ([facility]) Plan: -Continue empiric abx -Monitor CBC/CMP, temperatures -PEG/trach care -aspiration precautions -COVID19 isolation and testing; -s/p thoracentesis- sent fluid analysis and culture - FiO2 now 60%; ABG reviewed; will check CXR Dc planning Elijah Stephen MD Dec 08, 2019 08:01
[2019-12-08] MEDS: Amantadine 100mg cap GT SCH ×2 (08:37→17:39)
[2019-12-08] MEDS: Ascorbic Acid 500mg tab GT SCH (08:37)
[2019-12-08] MEDS: Nephrovite tab (Rena-Vite) GT SCH (08:37)
[2019-12-08] MEDS: Metoprolol Tartrate 12.5mg TAB ORAL SCH ×2 (08:38→21:11)
[2019-12-08] MEDS: Heparin 5000 units/ml inj SUBQ SCH ×2 (08:38→21:11)
[2019-12-08] MEDS: Zinc Sulfate 220mg GT SCH (08:38)
[2019-12-08 12:00] VITALS: BP 158/74
--- NOTE | 2019-12-08 12:29 | Nephrology Progress Note ---
Assessment/Plan Problem List: (1) JAVIER (acute kidney injury) (2) Renal failure (ARF), acute on chronic (3) Feeding by G-tube (4) Tracheostomy in place (5) Electrolyte imbalance (6) Anemia (7) Respiratory failure, acute and chronic (8) Elevated lipase Assessment Patient is presented with sepsis and pneumonia and UTI, hypoxia Patient has acute renal failure, possible underlying chronic kidney failure Severe anemia Electrolyte imbalances: Hyponatremia, hypo-kalemia Chronic respiratory failure, COPD exacerbation Has sacral decubitus ulcer stage IV PEG Plan December 07: Renal parameters essentially unchanged. Decent urine output. Patient remains edematous. Electrolyte imbalances noted. Discussed with RN. As needed blood pressure medication ordered. Continue current management. December 06: Renal parameters unchanged. Slightly lower serum sodium and potassium. IV fluid discontinued. Potassium supplement given. Creatinine clearance remains around 14/15 mL/min. Patient edematous. May require a course of dialysis treatment and ultrafiltration. Will discuss with Dr. Dong. December 05: Renal parameters unchanged. Discussed with RN Swathi. Electrolyte abnormalities addressed. Continue to monitor renal parameters. Will discuss with PMD possible need for dialysis trial. Serum lipase decreasing. December 04: Patient started on IV fluid with sodium bicarb by Dr. Dong. So at this time we will hold the diuretics. Will follow-up renal parameters and electrolytes. Continue rest of management. Continue monitor lipase level December 03: No chemistry panel done today. Appears clinically stable. Will order renal parameters and lipase panel for tomorrow. Continue per consultants. Patient remains full code. December 02: Labs reviewed. Serum lipase decreasing. On 20 cc an hour Nepro via GT tube. Renal parameters unchanged. Urine output well maintained. Continue per consultants. White blood cells 17,000, hemoglobin 8.9. December 01: Lab reviewed. Hemoglobin higher. Serum creatinine 3.4. Creatinine clearance calculated . Serum lipase lowering. Continue per current management. November 30: Patient transfused. Hemoglobin higher. Serum sodium lower. Renal parameters unchanged. Trial of 3% saline. Continue monitor renal parameters. May require dialysis treatment depending on the how her condition evolves. Previously Consider transfusion Urine studies Adjust blood pressure medication Albumin bolus Norman catheter, intake and output Monitor renal parameters Avoid nephrotoxic's Antibiotics Per orders Subjective ROS Limited/Unobtainable: Yes Objective Objective Last 24 Hour Vital Signs Date Time Temp Pulse Resp B/P (MAP) Pulse Ox O2 Delivery O2 Flow Rate FiO2 12/08/19 08:38 71 169/81 12/08/19 08:37 71 169/81 12/08/19 08:00 98.1 71 20 169/81 (110) 100 12/08/19 07:55 69 12/08/19 07:10 80 20 60 12/08/19 04:44 68 22 60 12/08/19 04:00 40 12/08/19 04:00 98.9 76 19 160/89 (112) 100 12/08/19 04:00 75 12/08/19 04:00 Mechanical Ventilator 12/08/19 02:55 74 24 60 12/08/19 01:17 67 22 60 12/08/19 00:00 98.3 83 19 158/83 (108) 99 12/08/19 00:00 Mechanical Ventilator 12/08/19 00:00 69 12/08/19 00:00 40 12/07/19 22:35 69 25 60 12/07/19 21:11 67 21 60 12/07/19 20:48 72 160/74 12/07/19 20:00 Mechanical Ventilator 12/07/19 20:00 72 12/07/19 20:00 40 12/07/19 20:00 98.6 70 19 144/63 (90) 98 12/07/19 19:22 73 23 60 12/07/19 17:10 65 20 60 12/07/19 16:39 73 12/07/19 16:00 98.1 64 19 150/68 (95) 98 12/07/19 16:00 40 12/07/19 16:00 Mechanical Ventilator 12/07/19 15:29 64 20 60 12/07/19 13:11 62 20 60 12/07/19 12:31 60 Intake and Output 12/07/19 12/08/19 19:00 07:00 Intake Total 625 ml 495 ml Output Total 600 ml 700 ml Balance 25 ml -205 ml Intake Free Water 170 ml IV Total 55 ml 55 ml Tube Feeding 400 ml 440 ml Output Urine Total 600 ml 700 ml # Bowel Movements 2 Current Medications Medications (Trade) Dose Ordered Sig/Penny Route PRN Reason Start Time Stop Time Status Last Admin Dose Admin Acetaminophen (Tylenol) 650 mg Q4H PRN GT Temp >100.5 11/29/19 04:30 12/29/19 04:29 12/06/19 09:14 Amantadine HCl (Symmetrel) 100 mg TWICE A DAY GT 12/07/19 18:00 01/06/20 17:59 12/08/19 08:37 Amlodipine Besylate (Norvasc) 5 mg BID GT 12/08/19 18:00 01/05/20 08:59 UNV Ascorbic Acid (Vitamin C) 500 mg DAILY GT 11/29/19 09:00 12/29/19 08:59 12/08/19 08:37 Clonidine HCl (Catapres TTS-1) 1 patch ONCE A WEEK TDERMAL 12/03/19 09:00 03/02/20 08:59 12/03/19 09:10 Clotrimazole (Lotrimin) 1 applic THREE TIMES A DAY TOPIC 12/01/19 13:00 02/29/20 12:59 12/08/19 12:08 Epoetin Gelacio (Epoetin Gelacio-EPBX(NON ESRD)) 10,000 unit MON-MON-MON SUBQ 11/29/19 21:00 02/27/20 20:59 12/06/19 21:00 Gentamicin Protocol (Gentamicin pharmacy to dose) 1 ea DAILY PRN MISC Per rx protocol 12/02/19 18:00 01/01/20 17:59 Heparin Sodium (Porcine) (Heparin 5000 units/ml) 5,000 units EVERY 12 HOURS SUBQ 11/29/19 09:00 01/13/20 08:59 12/07/19 20:50 Hydralazine HCl (Apresoline) 25 mg Q4HR PRN ORAL bp over 160 syst 12/08/19 12:30 03/07/20 12:29 UNV Lansoprazole (Prevacid) 30 mg BID GT 12/08/19 18:00 12/31/19 11:59 UNV Meropenem 500 mg/ Sodium Chloride 55 ml @ 110 mls/hr Q12HR@0300,1500 IVPB 12/05/19 15:00 12/08/19 16:00 12/08/19 03:20 Metoclopramide HCl (Reglan) 10 mg Q6H IVP 12/04/19 10:00 01/03/20 09:59 12/08/19 09:07 Metoprolol Tartrate (Lopressor) 12.5 mg Q12HR ORAL 12/03/19 21:00 03/02/20 08:59 12/08/19 08:38 Polyethylene Glycol (Miralax) 17 gm BEDTIME GT 11/29/19 21:00 12/29/19 20:59 12/07/19 20:48 Vitamin B Complex/ Vit C/Folic Acid (Nephrovite) 1 tab DAILY GT 11/29/19 09:00 12/29/19 08:59 12/08/19 08:37 Zinc Sulfate (Zinc Sulfate) 220 mg DAILY GT 11/29/19 09:00 02/27/20 08:59 12/08/19 08:38 Laboratory Tests 12/08/19 03:17: White Blood Count 9.6#, Red Blood Count 3.13L, Hemoglobin 8.8L, Hematocrit 27.3L , Mean Corpuscular Volume 87, Mean Corpuscular Hemoglobin 28.2, Mean Corpuscular Hemoglobin Concent 32.3, Red Cell Distribution Width 14.0, Platelet Count 348, Mean Platelet Volume 5.1L, Neutrophils (%) (Auto) 72.7, Lymphocytes (%) (Auto) 19.2L, Monocytes (%) (Auto) 4.0, Eosinophils (%) (Auto) 3.8H, Basophils (%) (Auto) 0.3, Sodium Level 134L, Potassium Level 3.3L, Chloride Level 96L, Carbon Dioxide Level 25, Anion Gap 13, Blood Urea Nitrogen 118H, Creatinine 3.6H, Estimat Glomerular Filtration Rate 13.6, Glucose Level 98, Uric Acid 7.1, Calcium Level 7.6L, Phosphorus Level 4.5, Magnesium Level 3.1H, Total Bilirubin 0.3, Aspartate Amino Transf (AST/SGOT) 65H, Alanine Aminotransferase (ALT/SGPT) 28, Alkaline Phosphatase 358H, Total Protein 6.7, Albumin 2.2L, Globulin 4.5, Albumin/Globulin Ratio 0.5L, Random Gentamicin Level 2.9 Height (Feet): 5 Height (Inches): 4.00 Weight (Pounds): 150 General Appearance: no apparent distress EENT: other - Trach and vent Cardiovascular: normal rate Respiratory/Chest: decreased breath sounds Abdomen: distended Johnny Houston MD Dec 08, 2019 12:29
--- NOTE | 2019-12-08 12:59 | Diagnostic Imaging Report ---
EXAM: XR Chest, 1 View CLINICAL HISTORY: ABN CHST TECHNIQUE: Frontal view of the chest. COMPARISON: 12/05/19. FINDINGS: There is a redemonstrated tracheostomy tube, with the tip appropriately positioned between the clavicular heads. There is redemonstrated. Opacification of the left hemithorax suggesting a moderate pleural effusion with associated atelectasis/consolidation. Right basilar volume loss and/or airspace infiltrate is less pronounced than on the prior study. No clear right lung consolidation currently. No pneumothorax. Status post median sternotomy. IMPRESSION: Persistent moderate left pleural effusion with associated atelectasis and/or consolidation. Interval resolution of right basilar opacities.
--- NOTE | 2019-12-08 13:05 | Cardiology Progress Note ---
Subjective DATE OF SERVICE: Dec 08, 2019 On vent support BP trending up. Heart rates controlled. Head CT (12/05) reveals pansinusitis; no acute process CXR (12/05/19) reveals worsening left consolidation and eff'n, with new right infiltrate/atelectasis. Multiple electrolyte abnormalities and renal failure persist. ABG: (12/06) 7.47/37/74 Monitor: Sinus. No further bradycardia. No pauses. CT scan confirmed chronic aortic dissection Objective Last 24 Hour Vital Signs Date Time Temp Pulse Resp B/P (MAP) Pulse Ox O2 Delivery O2 Flow Rate FiO2 12/08/19 11:51 70 12/08/19 08:38 71 169/81 12/08/19 08:37 71 169/81 12/08/19 08:00 98.1 71 20 169/81 (110) 100 12/08/19 07:55 69 12/08/19 07:10 80 20 60 12/08/19 04:44 68 22 60 12/08/19 04:00 40 12/08/19 04:00 98.9 76 19 160/89 (112) 100 12/08/19 04:00 75 12/08/19 04:00 Mechanical Ventilator 12/08/19 02:55 74 24 60 12/08/19 01:17 67 22 60 12/08/19 00:00 98.3 83 19 158/83 (108) 99 12/08/19 00:00 Mechanical Ventilator 12/08/19 00:00 69 12/08/19 00:00 40 12/07/19 22:35 69 25 60 12/07/19 21:11 67 21 60 12/07/19 20:48 72 160/74 12/07/19 20:00 Mechanical Ventilator 12/07/19 20:00 72 12/07/19 20:00 40 12/07/19 20:00 98.6 70 19 144/63 (90) 98 12/07/19 19:22 73 23 60 12/07/19 17:10 65 20 60 12/07/19 16:39 73 12/07/19 16:00 98.1 64 19 150/68 (95) 98 12/07/19 16:00 40 12/07/19 16:00 Mechanical Ventilator 12/07/19 15:29 64 20 60 10/24/20 13:11 62 20 60 ROS: no changes from my prior evaluation 11/30/19 HEENT: Thin secretions ET Tube RHYTHM: ST LUNGS: bilateral rhonchi CARDIAC: normal rate, regular rhythm, normal S1 and S2 ABDOMEN: normal bowel sounds, G-Tube intact EXTREMITIES: +2 edema Laboratory Tests Test 12/08/19 03:17 White Blood Count 9.6 K/UL (4.8-10.8) # Red Blood Count 3.13 M/UL (4.20-5.40) L Hemoglobin 8.8 G/DL (12.0-16.0) L Hematocrit 27.3 % (37.0-47.0) L Mean Corpuscular Volume 87 FL (80-99) Mean Corpuscular Hemoglobin 28.2 PG (27.0-31.0) Mean Corpuscular Hemoglobin Concent 32.3 G/DL (32.0-36.0) Red Cell Distribution Width 14.0 % (11.6-14.8) Platelet Count 348 K/UL (150-450) Mean Platelet Volume 5.1 FL (6.5-10.1) L Neutrophils (%) (Auto) 72.7 % (45.0-75.0) Lymphocytes (%) (Auto) 19.2 % (20.0-45.0) L Monocytes (%) (Auto) 4.0 % (1.0-10.0) Eosinophils (%) (Auto) 3.8 % (0.0-3.0) H Basophils (%) (Auto) 0.3 % (0.0-2.0) Sodium Level 134 MMOL/L (136-145) L Potassium Level 3.3 MMOL/L (3.5-5.1) L Chloride Level 96 MMOL/L (98-107) L Carbon Dioxide Level 25 MMOL/L (21-32) Anion Gap 13 mmol/L (5-15) Blood Urea Nitrogen 118 mg/dL (7-18) H Creatinine 3.6 MG/DL (0.55-1.30) H Estimat Glomerular Filtration Rate 13.6 mL/min (>60) Glucose Level 98 MG/DL (74-106) Uric Acid 7.1 MG/DL (2.6-7.2) Calcium Level 7.6 MG/DL (8.5-10.1) L Phosphorus Level 4.5 MG/DL (2.5-4.9) Magnesium Level 3.1 MG/DL (1.8-2.4) H Total Bilirubin 0.3 MG/DL (0.2-1.0) Aspartate Amino Transf (AST/SGOT) 65 U/L (15-37) H Alanine Aminotransferase (ALT/SGPT) 28 U/L (12-78) Alkaline Phosphatase 358 U/L (46-116) H Total Protein 6.7 G/DL (6.4-8.2) Albumin 2.2 G/DL (3.4-5.0) L Globulin 4.5 g/dL Albumin/Globulin Ratio 0.5 (1.0-2.7) L Random Gentamicin Level 2.9 ug/mL Assessment/Plan Assessment/Plan Hypertension/HHD with elevated BP trend. Respiratory failure Acute myocardial ischemia and possible NSTE myocardial infarction Ischemic cardiomyopathy - s/p CABG Hx AAA repair with chronic dissection Paroxysmal AFib Pacemaker explant due to infection Decubitus sepsis Low lipid parameters Renal failure ac/chr Degenerative aortic valve disease (Mild-mod AI and ) Mild pulmonary hypertension Hypokalemia Chronic diastolic CHF with elevated BNP Antimicrobials Anti-plt therapy Titrate beta flori - now stable heart rate on low dose regimen. Vent support Diuresis as able ADVANCE amlodipine dose for increased BP trend. Reassess beta flori dosing over next 24hrs. Deni Willams MD Dec 08, 2019 13:04
--- NOTE | 2019-12-08 15:47 | Surgery Progress Note ---
Surgery Progress Note Subjective Symptoms: improved, tolerating diet, passing flatus, BM Objective Last 24 Hour Vital Signs Date Time Temp Pulse Resp B/P (MAP) Pulse Ox O2 Delivery O2 Flow Rate FiO2 12/08/19 12:00 Mechanical Ventilator 12/08/19 12:00 60 12/08/19 12:00 98.2 71 20 158/74 (102) 100 12/08/19 11:51 70 12/08/19 08:38 71 169/81 12/08/19 08:37 71 169/81 12/08/19 08:00 Mechanical Ventilator 12/08/19 08:00 60 12/08/19 08:00 98.1 71 20 169/81 (110) 100 12/08/19 07:55 69 12/08/19 07:10 80 20 60 12/08/19 04:44 68 22 60 12/08/19 04:00 40 12/08/19 04:00 98.9 76 19 160/89 (112) 100 12/08/19 04:00 75 12/08/19 04:00 Mechanical Ventilator 12/08/19 02:55 74 24 60 12/08/19 01:17 67 22 60 12/08/19 00:00 98.3 83 19 158/83 (108) 99 12/08/19 00:00 Mechanical Ventilator 12/08/19 00:00 69 12/08/19 00:00 40 12/07/19 22:35 69 25 60 12/07/19 21:11 67 21 60 12/07/19 20:48 72 160/74 12/07/19 20:00 Mechanical Ventilator 12/07/19 20:00 72 12/07/19 20:00 40 12/07/19 20:00 98.6 70 19 144/63 (90) 98 12/07/19 19:22 73 23 60 12/07/19 17:10 65 20 60 12/07/19 16:39 73 12/07/19 16:00 98.1 64 19 150/68 (95) 98 12/07/19 16:00 40 12/07/19 16:00 Mechanical Ventilator I&O Intake and Output 12/07/19 12/08/19 19:00 07:00 Intake Total 625 ml 495 ml Output Total 600 ml 700 ml Balance 25 ml -205 ml Intake Free Water 170 ml IV Total 55 ml 55 ml Tube Feeding 400 ml 440 ml Output Urine Total 600 ml 700 ml # Bowel Movements 2 Dressing: saturated Cardiovascular: RSR Respiratory: decreased breath sounds Abdomen: non-tender, present bowel sounds Extremities: edema, no tenderness, no cyanosis Laboratory Tests Test 12/08/19 03:17 White Blood Count 9.6 K/UL (4.8-10.8) # Red Blood Count 3.13 M/UL (4.20-5.40) L Hemoglobin 8.8 G/DL (12.0-16.0) L Hematocrit 27.3 % (37.0-47.0) L Mean Corpuscular Volume 87 FL (80-99) Mean Corpuscular Hemoglobin 28.2 PG (27.0-31.0) Mean Corpuscular Hemoglobin Concent 32.3 G/DL (32.0-36.0) Red Cell Distribution Width 14.0 % (11.6-14.8) Platelet Count 348 K/UL (150-450) Mean Platelet Volume 5.1 FL (6.5-10.1) L Neutrophils (%) (Auto) 72.7 % (45.0-75.0) Lymphocytes (%) (Auto) 19.2 % (20.0-45.0) L Monocytes (%) (Auto) 4.0 % (1.0-10.0) Eosinophils (%) (Auto) 3.8 % (0.0-3.0) H Basophils (%) (Auto) 0.3 % (0.0-2.0) Sodium Level 134 MMOL/L (136-145) L Potassium Level 3.3 MMOL/L (3.5-5.1) L Chloride Level 96 MMOL/L (98-107) L Carbon Dioxide Level 25 MMOL/L (21-32) Anion Gap 13 mmol/L (5-15) Blood Urea Nitrogen 118 mg/dL (7-18) H Creatinine 3.6 MG/DL (0.55-1.30) H Estimat Glomerular Filtration Rate 13.6 mL/min (>60) Glucose Level 98 MG/DL (74-106) Uric Acid 7.1 MG/DL (2.6-7.2) Calcium Level 7.6 MG/DL (8.5-10.1) L Phosphorus Level 4.5 MG/DL (2.5-4.9) Magnesium Level 3.1 MG/DL (1.8-2.4) H Total Bilirubin 0.3 MG/DL (0.2-1.0) Aspartate Amino Transf (AST/SGOT) 65 U/L (15-37) H Alanine Aminotransferase (ALT/SGPT) 28 U/L (12-78) Alkaline Phosphatase 358 U/L (46-116) H Total Protein 6.7 G/DL (6.4-8.2) Albumin 2.2 G/DL (3.4-5.0) L Globulin 4.5 g/dL Albumin/Globulin Ratio 0.5 (1.0-2.7) L Random Gentamicin Level 2.9 ug/mL Plan Problems: (1) Dehydration (2) Acidosis (3) Anemia (4) Depression (5) Pancreatitis Assessment & Plan: 49F leukocytosis, elevated lip, lft's noted septic. work up ongoing npo iv fluids iv abx imaging ordered lipase worsening npo pending CT panc lip / jeanne improved diet as tolerated improving DAILY ESTIMATED NEEDS: Needs based on Critical care, wound, 56.8kg 28-33 kcals/kg [id number] total kcals 1.25-2 g protein/kg 71-114 g total protein Fluid per MD NUTRITION DIAGNOSIS: * Swallowing difficulty R/T dysphagia, respiratory status as evidenced by vent dep via trach, GT Dep. * Increase kcal and pro needs r/t wound healing and wasting as evidenced by stage 4 sacral wound. CURRENT TF:Nepro @ 40ml/hr x 20 hrs ENTERAL NUTRITION RECOMMENDATIONS: Nepro @ 45ml/hr x 20 hrs to provide 900ml, 1620kcal, 73g prot, 654ml free water * Increase TF to goal of 45ml/hr x20 hrs to better meet est needs * Water flush per MD * HOB over 30 degrees ADDITIONAL RECOMMENDATIONS: * Per SNF: HT=63", JT=240kph -> rec calibrated bedscale wt (Bed reads 79.4kg) * Rec TF increase as above to better meet est needs * F/up w/ H&P * WC-> continue Vit C, ZnSO4, Nephrovite Add FRANKLIN in 4oz BID for wound care Lung bases: See below. Pleural space: Bilateral moderate low-attenuation, partially loculated pleural effusions with extensive passive atelectasis; correlate to exclude superimposed aspiration or pneumonia. Liver: Ill-defined right hepatic lobe. 2.9 cm hypodensity not well evaluated on this study. Gallbladder and bile ducts: Unremarkable. No calcified stones. No ductal dilation. Pancreas: Unremarkable. No ductal dilation. Spleen: Unremarkable. No splenomegaly. Adrenals: Unremarkable. No mass. Kidneys and ureters: Left nephroureteral stent in the decompressed left, atrophic renal collecting system. No evident urolithiasis. No hydronephrosis. Stomach and bowel: Unremarkable. No obstruction. No mucosal thickening. Intraperitoneal space: Moderate nonloculated ascites. No free air. Bones/joints: Potentially chronic appearing right intertrochanteric hip fracture. Possible sacral decubitus ulcer, recommend direct visualization. No dislocation. Soft tissues: Severe anasarca. Incompletely evaluated chronic aortic dissection not well seen on this study due to lack of IV contrast and severe anasarca. Vasculature: Descending thoracic aortic ectasia 4 cm diameter above the hiatus. No abdominal aortic aneurysm. Lymph nodes: Unremarkable. No enlarged lymph nodes. Tubes, lines and devices: Percutaneous gastrostomy tube. Norman catheter in decompressed urinary bladder. IMPRESSION: 1. Study substantially limited due to lack of IV contrast and severe anasarca and moderate nonloculated ascites. 2. Left nephroureteral stent in the decompressed left, atrophic renal collecting system. 3. No evident urolithiasis. 4. Incompletely evaluated chronic aortic dissection not well seen on this study due to lack of IV contrast and severe anasarca. 5. Bilateral moderate low-attenuation, partially loculated pleural effusions with extensive passive atelectasis; correlate to exclude superimposed aspiration or pneumonia. 6. Percutaneous gastrostomy tube. 7. Norman catheter in decompressed urinary bladder. 8. Likely chronic appearing right intertrochanteric hip fracture. 9. Possible sacral decubitus ulcer, recommend direct visualization. There is no acute intracranial hemorrhage, mass effect or cortical edema. There is no shift of the midline structures. The ventricles, cisterns and sulci are within normal limits for age. Minimal periventricular hypoattenuation is seen, a nonspecific finding. Extensive paranasal sinus disease with retention cyst partially visualized within the right maxillary sinus. Soft tissue prominence the poste rior aspect of the turbinates also noted in the nasal cavity. This is not evaluated adequately or completely on this study but similar findings noted previously. IMPRESSION: No evidence of acute intracranial hemorrhage, mass effect or cortical edema. Extensive paranasal sinus disease. (6) Pleural effusion (7) Renal failure (8) Respiratory failure (9) Schizophrenia (10) Hypoxia (11) Sepsis (12) UTI (urinary tract infection) (13) Pneumonia (14) ARF (acute renal failure) (15) NSTEMI (non-ST elevated myocardial infarction) (16) Tracheostomy in place (17) Feeding by G-tube (18) JAVIER (acute kidney injury) (19) Acute encephalopathy (20) Sacral decubitus ulcer, stage IV Assessment & Plan: Pt presented on admission with Full thickness stage 4 Sacral Pressure injury which extends into R gluteal cheek. Base of wound is granular with bone exposure at base of sacrococcygeal. Pt presented on admission with tracheostomy, GT, Full Thickness Pressure Injury Sacrococcygeal.Base of wound is 40% soft necrosis, 60% noni with undermined borders(L)5.8cm x (W)5.5cm x (D)1.5cm, undermining clockwise 10-1 by 2.7cm @12o'clock.(+) Epibole along edges with scattered slough. Small area that is purple and indurated noted clockwise @7-8o'clock along borders.Small amt serous exudate noted.Mild odor noted. hyperpigmentation periwound. At L ischium are two areas of dry pink epithelial with surrounding hyperpigmentation. Both heels are boggy with [id number] erythema. Tx.Plan: Cleanse sacral wound with Saline. Loosely pack with Hydrogel impregnated kerlix. Apply Moisture Barrier Paste periwound. Cover with Optifoam drsg Daily and prn. Apply Cavilon Skin Barrier to both heels and malleoli. Cover eachsite with Optifoam drsgs. Change every 7 days and prn. Reposition at least every 2hours or as tolerated. Off-load heels with pillow. APM/Maxwell Mattress overlay. (21) Chronic respiratory failure (22) Hypokalemia (23) Ascites (24) Bacteremia (25) Hypernatremia (26) Proteinuria (27) Electrolyte imbalance (28) Pacemaker (29) ACS (acute coronary syndrome) (30) Aortic dissection, thoracic (31) Respiratory failure, acute and chronic (32) JAVIER (acute kidney injury) (33) Abrasion of lip, initial encounter (34) COPD with exacerbation (35) Elevated alkaline phosphatase level (36) Renal failure (ARF), acute on chronic (37) HCAP (healthcare-associated pneumonia) (38) Lane Alexis Dec 08, 2019 15:47
[2019-12-08 16:00] VITALS: BP 150/65
[2019-12-08 20:00] VITALS: BP 146/67
[2019-12-08] MEDS: Miralax 17gm pkt GT SCH (21:09)
[2019-12-09] VITALS: BP 164/71
[2019-12-09] MEDS: HydrALAZINE 25mg tab ORAL PRN ×2 (00:01→11:45)
[2019-12-09 04:00] VITALS: BP 158/70
[2019-12-09] MEDS: Metoclopramide 10mg/2ml Inj IVP SCH ×4 (04:30→22:10)
[2019-12-09 05:01] LABS: HEMATOCRIT 23.6 % (37.0-47.0); HEMOGLOBIN 7.7 G/DL (12.0-16.0); MEAN CORPUSCULAR VOLUME 87 FL (80-99); PLATELET COUNT 309 K/UL (150-450); RED BLOOD COUNT 2.71 M/UL (4.20-5.40); RED CELL DISTRIBUTION WIDTH 13.7 % (11.6-14.8); WHITE BLOOD COUNT 8.8 K/UL (4.8-10.8)
[2019-12-09 05:40] LABS: ALBUMIN/GLOBULIN RATIO 0.5 (1.0-2.7); BILIRUBIN,TOTAL 0.4 MG/DL (0.2-1.0); CREATININE 3.6 MG/DL (0.55-1.30); POTASSIUM 3.4 MMOL/L (3.5-5.1)
--- NOTE | 2019-12-09 06:52 | Hematology/Onc Progress Note ---
Assessment/Plan Assessment/Plan Assessment and Recs # Leukocytosis, now with uti, though in past has had pna, pacemaker site infection and bacteremia --> is s/p pm removal and also pocket infection is better --> per cards recs in re to tach/davis --> wbc 29-->16-->17-->7 --> ABX vanc/angelo-->gent/angelo --> ID recs are noted # Anemia of chronic disease due to underlying chronic medical issues, multifactorial --> Anemia workup has been reviewed, cw acd --> No evidence of hemolysis is noted, peripheral smear has been reviewed. --> Hgb goal >7. Transfuse prn. --> Epogen started sq --> Medications have been reviewed --> low threshold for gi evaluation in case has occult + --> hgb 7.1-->7.8-->>>6.7->9.2-->8.9->8.2->8.5->7.7 --> 1 unit prbc10/17 --> gi eval as needed # Thrombocytois is likely reactive process, is s/p infection --> plt trend 358-->361->349 --> p smear reviewed # JAVIER initially >2 --> on ivfs -> may need hd per Dr. [place] # Elevated d-dimer --> venous duplex and v/q scan neg --> negative results # Dysphagia s/p peg --> as per gi # Thoracic aortic dissection s/p repair early 2017 # Chronic Resp failure -> s/p trach/vent # Psychiatric history on ativan/haldol # [place] resident # Dvt ppx --> heparin sq The timing of this note does not necessarily reflect the time of the patient was seen. Greatly appreciate consultation. Subjective HEENT: Denies: no symptoms, eye pain, blurred vision, tearing, double vision, ear pain, ear discharge, nose pain, nose congestion, throat pain, throat swelling, mouth pain, mouth swelling, other Cardiovascular: Denies: no symptoms, chest pain, edema, irregular heart rate, lightheadedness, palpitations, syncope, other Respiratory: Denies: no symptoms, cough, shortness of breath, SOB with excertion, SOB at rest, sputum, wheezing, other Gastrointestinal/Abdominal: Denies: no symptoms, abdomen distended, abdominal pain, black stools, tarry stools, blood in stool, constipated, diarrhea, difficulty swallowing, nausea, poor appetite, poor fluid intake, rectal bleeding, vomiting, other Genitourinary: Denies: no symptoms, burning, discharge, frequency, flank pain, hematuria, incontinence, pain, urgency, other Allergies: Coded Allergies: No Known Allergies (Unverified , 10/10/17) All Systems: reviewed and negative except above Subjective 12/01 on vent, with gtube and raymond, no bleeding, labs are noted 12/02 labs noted, remains on abx, dw Rn at bedside is on abx, hgb 8.9 12/03 roman Rn in am, with drainage blood from gtube site, and mouth,gi aware 12/04 on vent, hgb 8.2, no bleeding, k was given overnight 12/05 labs reviewed, on vent, no bleeding, gb 8.5, no hemolysis is seen 12/07 asymptomatic, a+o x1, no bleeding, meds reviewed, labs noted 12/08 nv, trach to vent, no bleeding, meds reviewed, no night sweats, hep sq Objective Objective Current Medications Medications (Trade) Dose Ordered Sig/Penny Route PRN Reason Start Time Stop Time Status Last Admin Dose Admin Acetaminophen (Tylenol) 650 mg Q4H PRN GT Temp >100.5 11/29/19 04:30 12/29/19 04:29 12/06/19 09:14 Amantadine HCl (Symmetrel) 100 mg TWICE A DAY GT 12/07/19 18:00 01/06/20 17:59 12/08/19 17:39 Amlodipine Besylate (Norvasc) 5 mg BID GT 12/08/19 18:00 01/05/20 08:59 12/08/19 17:38 Ascorbic Acid (Vitamin C) 500 mg DAILY GT 11/29/19 09:00 12/29/19 08:59 12/08/19 08:37 Clonidine HCl (Catapres TTS-1) 1 patch ONCE A WEEK TDERMAL 12/03/19 09:00 03/02/20 08:59 12/03/19 09:10 Clotrimazole (Lotrimin) 1 applic THREE TIMES A DAY TOPIC 12/01/19 13:00 02/29/20 12:59 12/08/19 17:39 Epoetin Gelacio (Epoetin Gelacio-EPBX(NON ESRD)) 10,000 unit MON-MON-MON SUBQ 11/29/19 21:00 02/27/20 20:59 12/06/19 21:00 Gentamicin Protocol (Gentamicin pharmacy to dose) 1 ea DAILY PRN MISC Per rx protocol 12/02/19 18:00 01/01/20 17:59 Heparin Sodium (Porcine) (Heparin 5000 units/ml) 5,000 units EVERY 12 HOURS SUBQ 11/29/19 09:00 01/13/20 08:59 12/08/19 21:11 Hydralazine HCl (Apresoline) 25 mg Q4H PRN ORAL bp over 160 syst 12/08/19 12:30 03/07/20 12:29 12/09/19 00:01 Lansoprazole (Prevacid) 30 mg BID GT 12/08/19 18:00 12/31/19 11:59 12/08/19 17:38 Metoclopramide HCl (Reglan) 10 mg Q6H IVP 12/04/19 10:00 01/03/20 09:59 12/09/19 04:30 Metoprolol Tartrate (Lopressor) 12.5 mg Q12HR ORAL 12/03/19 21:00 03/02/20 08:59 12/08/19 21:11 Polyethylene Glycol (Miralax) 17 gm BEDTIME GT 11/29/19 21:00 12/29/19 20:59 12/08/19 21:09 Vitamin B Complex/ Vit C/Folic Acid (Nephrovite) 1 tab DAILY GT 11/29/19 09:00 12/29/19 08:59 12/08/19 08:37 Zinc Sulfate (Zinc Sulfate) 220 mg DAILY GT 11/29/19 09:00 02/27/20 08:59 12/08/19 08:38 Last 24 Hour Vital Signs Date Time Temp Pulse Resp B/P (MAP) Pulse Ox O2 Delivery O2 Flow Rate FiO2 12/09/19 04:55 74 20 50 12/09/19 04:00 60 12/09/19 04:00 Mechanical Ventilator 12/09/19 04:00 69 12/09/19 04:00 98.4 71 20 158/70 (99) 96 12/09/19 03:12 72 20 50 12/09/19 00:44 76 22 50 12/09/19 00:01 164/71 12/09/19 00:00 98.1 73 20 164/71 (102) 97 12/09/19 00:00 72 12/09/19 00:00 60 12/09/19 00:00 Mechanical Ventilator 12/08/19 22:53 69 21 60 12/08/19 21:11 75 146/67 12/08/19 21:10 74 22 60 12/08/19 20:00 Mechanical Ventilator 12/08/19 20:00 60 12/08/19 20:00 97.9 72 20 146/67 (93) 97 12/08/19 20:00 77 12/08/19 18:57 75 23 60 12/08/19 17:38 66 152/73 12/08/19 17:01 66 20 60 12/08/19 16:00 Mechanical Ventilator 12/08/19 16:00 97.9 70 20 150/65 (93) 100 12/08/19 16:00 60 12/08/19 15:31 70 12/08/19 15:05 66 20 60 12/08/19 13:05 70 20 60 12/08/19 12:00 Mechanical Ventilator 12/08/19 12:00 60 12/08/19 12:00 98.2 71 20 158/74 (102) 100 12/08/19 11:51 70 12/08/19 11:05 66 21 60 12/08/19 09:05 66 22 60 12/08/19 08:38 71 169/81 12/08/19 08:37 71 169/81 12/08/19 08:00 Mechanical Ventilator 12/08/19 08:00 60 12/08/19 08:00 98.1 71 20 169/81 (110) 100 12/08/19 07:55 69 12/08/19 07:10 80 20 60 12/08/19 04:44 68 22 60 12/08/19 04:00 40 12/08/19 04:00 98.9 76 19 160/89 (112) 100 12/08/19 04:00 75 12/08/19 04:00 Mechanical Ventilator 12/08/19 02:55 74 24 60 12/08/19 01:17 67 22 60 12/08/19 00:00 98.3 83 19 158/83 (108) 99 12/08/19 00:00 Mechanical Ventilator 12/08/19 00:00 69 12/08/19 00:00 40 12/07/19 22:35 69 25 60 12/07/19 21:11 67 21 60 12/07/19 20:48 72 160/74 12/07/19 20:00 Mechanical Ventilator 12/07/19 20:00 72 12/07/19 20:00 40 12/07/19 20:00 98.6 70 19 144/63 (90) 98 12/07/19 19:22 73 23 60 12/07/19 17:10 65 20 60 12/07/19 16:39 73 12/07/19 16:00 98.1 64 19 150/68 (95) 98 12/07/19 16:00 40 12/07/19 16:00 Mechanical Ventilator 12/07/19 15:29 64 20 60 12/07/19 13:11 62 20 60 12/07/19 12:31 60 12/07/19 12:00 97.5 61 21 145/66 (92) 98 12/07/19 12:00 40 12/07/19 12:00 Mechanical Ventilator 12/07/19 11:19 60 21 60 12/07/19 09:06 58 21 60 12/07/19 08:40 56 12/07/19 08:11 54 146/78 12/07/19 08:09 54 146/78 12/07/19 08:01 97.5 54 18 146/78 (100) 98 12/07/19 08:00 Mechanical Ventilator 12/07/19 08:00 40 12/07/19 07:35 55 20 60 Intake and Output 12/08/19 12/09/19 19:00 07:00 Intake Total 460 ml 640 ml Output Total 1100 ml 1050 ml Balance -640 ml -410 ml Intake Free Water 100 ml 200 ml Tube Feeding 360 ml 440 ml Output Urine Total 1100 ml 1050 ml Labs Test 12/07/19 03:00 12/07/19 10:59 12/08/19 03:17 12/09/19 03:25 White Blood Count 6.2 K/UL (4.8-10.8) 9.6 K/UL (4.8-10.8) 8.8 K/UL (4.8-10.8) Red Blood Count 2.93 M/UL (4.20-5.40) 3.13 M/UL (4.20-5.40) 2.71 M/UL (4.20-5.40) Hemoglobin 8.5 G/DL (12.0-16.0) 8.8 G/DL (12.0-16.0) 7.7 G/DL (12.0-16.0) Hematocrit 25.8 % (37.0-47.0) 27.3 % (37.0-47.0) 23.6 % (37.0-47.0) Mean Corpuscular Volume 88 FL (80-99) 87 FL (80-99) 87 FL (80-99) Mean Corpuscular Hemoglobin 28.8 PG (27.0-31.0) 28.2 PG (27.0-31.0) 28.5 PG (27.0-31.0) Mean Corpuscular Hemoglobin Concent 32.8 G/DL (32.0-36.0) 32.3 G/DL (32.0-36.0) 32.8 G/DL (32.0-36.0) Red Cell Distribution Width 14.1 % (11.6-14.8) 14.0 % (11.6-14.8) 13.7 % (11.6-14.8) Platelet Count 342 K/UL (150-450) 348 K/UL (150-450) 309 K/UL (150-450) Mean Platelet Volume 5.0 FL (6.5-10.1) 5.1 FL (6.5-10.1) 4.9 FL (6.5-10.1) Neutrophils (%) (Auto) 64.9 % (45.0-75.0) 72.7 % (45.0-75.0) % (45.0-75.0) Lymphocytes (%) (Auto) 30.1 % (20.0-45.0) 19.2 % (20.0-45.0) % (20.0-45.0) Monocytes (%) (Auto) 4.2 % (1.0-10.0) 4.0 % (1.0-10.0) % (1.0-10.0) Eosinophils (%) (Auto) 0.5 % (0.0-3.0) 3.8 % (0.0-3.0) % (0.0-3.0) Basophils (%) (Auto) 0.2 % (0.0-2.0) 0.3 % (0.0-2.0) % (0.0-2.0) Sodium Level 134 MMOL/L (136-145) 134 MMOL/L (136-145) 136 MMOL/L (136-145) Potassium Level 3.3 MMOL/L (3.5-5.1) 3.3 MMOL/L (3.5-5.1) 3.4 MMOL/L (3.5-5.1) Chloride Level 97 MMOL/L (98-107) 96 MMOL/L (98-107) 96 MMOL/L (98-107) Carbon Dioxide Level 25 MMOL/L (21-32) 25 MMOL/L (21-32) 26 MMOL/L (21-32) Anion Gap 12 mmol/L (5-15) 13 mmol/L (5-15) 14 mmol/L (5-15) Blood Urea Nitrogen 124 mg/dL (7-18) 118 mg/dL (7-18) 114 mg/dL (7-18) Creatinine 3.5 MG/DL (0.55-1.30) 3.6 MG/DL (0.55-1.30) 3.6 MG/DL (0.55-1.30) Estimat Glomerular Filtration Rate 14.0 mL/min (>60) 13.6 mL/min (>60) 13.6 mL/min (>60) Glucose Level 109 MG/DL (74-106) 98 MG/DL (74-106) 91 MG/DL (74-106) Calcium Level 7.1 MG/DL (8.5-10.1) 7.6 MG/DL (8.5-10.1) 8.0 MG/DL (8.5-10.1) Phosphorus Level 4.7 MG/DL (2.5-4.9) 4.5 MG/DL (2.5-4.9) 5.0 MG/DL (2.5-4.9) Magnesium Level 3.0 MG/DL (1.8-2.4) 3.1 MG/DL (1.8-2.4) 3.0 MG/DL (1.8-2.4) Total Bilirubin 0.3 MG/DL (0.2-1.0) 0.3 MG/DL (0.2-1.0) 0.4 MG/DL (0.2-1.0) Direct Bilirubin < 0.1 MG/DL (0.0-0.3) Aspartate Amino Transf (AST/SGOT) 42 U/L (15-37) 65 U/L (15-37) 56 U/L (15-37) Alanine Aminotransferase (ALT/SGPT) 12 U/L (12-78) 28 U/L (12-78) 18 U/L (12-78) Alkaline Phosphatase 261 U/L (46-116) 358 U/L (46-116) 367 U/L (46-116) C-Reactive Protein, Quantitative 5.3 mg/dL (0.00-0.90) 7.4 mg/dL (0.00-0.90) Pro-B-Type Natriuretic Peptide > 58790 pg/mL (0-125) > 01040 pg/mL (0-125) Total Protein 5.5 G/DL (6.4-8.2) 6.7 G/DL (6.4-8.2) 5.7 G/DL (6.4-8.2) Albumin 2.0 G/DL (3.4-5.0) 2.2 G/DL (3.4-5.0) 2.0 G/DL (3.4-5.0) Lipase 872 U/L (73-393) Random Gentamicin Level 3.4 ug/mL 2.9 ug/mL 2.6 ug/mL Arterial Blood pH 7.474 (7.350-7.450) Arterial Blood Partial Pressure CO2 37.2 mmHg (35.0-45.0) Arterial Blood Partial Pressure O2 74.5 mmHg (75.0-100.0) Arterial Blood HCO3 26.7 mmol/L (22.0-26.0) Arterial Blood Oxygen Saturation 94.8 % (95-100) Arterial Blood Base Excess 3.0 (-2-2) Rojas Test Positive Uric Acid 7.1 MG/DL (2.6-7.2) 7.1 MG/DL (2.6-7.2) Globulin 4.5 g/dL 3.7 g/dL Albumin/Globulin Ratio 0.5 (1.0-2.7) 0.5 (1.0-2.7) Height (Feet): 5 Height (Inches): 4.00 Weight (Pounds): 150 Objective Physical Exam: Vitals: reviewed General: NAD HEENT: nc, at Neck: supple ++tracn/vent Chest: clear breath sounds bilaterally Cardiovascular: RRR, no s3, s4 Abdomen: soft, nontender, nd +gtube Extremities: no cce, normal range of motion Neuro: alert ++Evan Molina MD Dec 09, 2019 06:52
[2019-12-09 08:00] VITALS: BP 157/79
--- NOTE | 2019-12-09 08:32 | General Progress Note ---
Subjective ROS Limited/Unobtainable: No Allergies: Coded Allergies: No Known Allergies (Unverified , 10/10/17) Objective Last 24 Hour Vital Signs Date Time Temp Pulse Resp B/P (MAP) Pulse Ox O2 Delivery O2 Flow Rate FiO2 12/09/19 07:15 64 20 50 12/09/19 04:55 74 20 50 12/09/19 04:00 60 12/09/19 04:00 Mechanical Ventilator 12/09/19 04:00 69 12/09/19 04:00 98.4 71 20 158/70 (99) 96 12/09/19 03:12 72 20 50 12/09/19 00:44 76 22 50 12/09/19 00:01 164/71 12/09/19 00:00 98.1 73 20 164/71 (102) 97 12/09/19 00:00 72 12/09/19 00:00 60 12/09/19 00:00 Mechanical Ventilator 12/08/19 22:53 69 21 60 12/08/19 21:11 75 146/67 12/08/19 21:10 74 22 60 12/08/19 20:00 Mechanical Ventilator 12/08/19 20:00 60 12/08/19 20:00 97.9 72 20 146/67 (93) 97 12/08/19 20:00 77 12/08/19 18:57 75 23 60 12/08/19 17:38 66 152/73 12/08/19 17:01 66 20 60 12/08/19 16:00 Mechanical Ventilator 12/08/19 16:00 97.9 70 20 150/65 (93) 100 12/08/19 16:00 60 12/08/19 15:31 70 12/08/19 15:05 66 20 60 12/08/19 13:05 70 20 60 12/08/19 12:00 Mechanical Ventilator 12/08/19 12:00 60 12/08/19 12:00 98.2 71 20 158/74 (102) 100 12/08/19 11:51 70 12/08/19 11:05 66 21 60 12/08/19 09:05 66 22 60 12/08/19 08:38 71 169/81 12/08/19 08:37 71 169/81 Intake and Output 12/08/19 12/09/19 19:00 07:00 Intake Total 460 ml 640 ml Output Total 1100 ml 1050 ml Balance -640 ml -410 ml Intake Free Water 100 ml 200 ml Tube Feeding 360 ml 440 ml Output Urine Total 1100 ml 1050 ml Laboratory Tests 12/09/19 03:25: White Blood Count 8.8, Red Blood Count 2.71L, Hemoglobin 7.7L, Hematocrit 23.6L, Mean Corpuscular Volume 87, Mean Corpuscular Hemoglobin 28.5, Mean Corpuscular Hemoglobin Concent 32.8, Red Cell Distribution Width 13.7, Platelet Count 309, Mean Platelet Volume 4.9L, Neutrophils (%) (Auto) , Lymphocytes (%) (Auto) , Monocytes (%) (Auto) , Eosinophils (%) (Auto) , Basophils (%) (Auto) , Sodium Level 136, Potassium Level 3.4L, Chloride Level 96L, Carbon Dioxide Level 26, Anion Gap 14, Blood Urea Nitrogen 114H, Creatinine 3.6H, Estimat Glomerular Filtration Rate 13.6, Glucose Level 91, Uric Acid 7.1, Calcium Level 8.0L, Phosphorus Level 5.0H, Magnesium Level 3.0H, Total Bilirubin 0.4, Aspartate Amino Transf (AST/SGOT) 56H, Alanine Aminotransferase (ALT/SGPT) 18, Alkaline Phosphatase 367H, C-Reactive Protein, Quantitative 7.4H, Pro-B-Type Natriuretic Peptide > [id number], Total Protein 5.7L, Albumin 2.0L, Globulin 3.7, Albumin/Globulin Ratio 0.5L, Random Gentamicin Level 2.6 Height (Feet): 5 Height (Inches): 4.00 Weight (Pounds): 150 General Appearance: no apparent distress EENT: PERRL/EOMI Neck: supple Cardiovascular: normal rate Respiratory/Chest: decreased breath sounds Abdomen: normal bowel sounds, non tender, soft Extremities: non-tender Assessment/Plan Assessment/Plan: 1. Coronary artery disease with history of CABG. 2. Respiratory failure with history of tracheotomy. 3. Prior history of bacteremia. 4. History of prior pacemaker, status post explantation due to endovascular infection. 5. Chronic kidney disease. 6. Anemia of chronic kidney disease. 7. History of substance abuse. 8. Hyperlipidemia. 9. dysphagia with GT 10. Vitamin D deficiency. 11. History of aortic dissection and repair in 2018. 12. Paroxysmal atrial fibrillation. 13. Gastroesophageal reflux disease. 14. prei Gt cellulitis 15. pancreatitis repeat labs changed the GT to 22 Fr at the bedside >>> improved leakage on reglan s/p blood transfusion fu stool ob ppi diogenes GT wound care Inder Mccauley MD Dec 09, 2019 08:32
[2019-12-09] MEDS: Amantadine 100mg cap GT SCH ×2 (08:42→17:38)
[2019-12-09] MEDS: Nephrovite tab (Rena-Vite) GT SCH (08:42)
[2019-12-09] MEDS: Ascorbic Acid 500mg tab GT SCH (08:43)
[2019-12-09] MEDS: Zinc Sulfate 220mg GT SCH (08:43)
[2019-12-09] MEDS: Metoprolol Tartrate 12.5mg TAB ORAL SCH ×2 (08:43→20:29)
[2019-12-09] MEDS: Heparin 5000 units/ml inj SUBQ SCH ×3 (08:44→20:31)
[2019-12-09 10:18] LABS: INR 1.2 (0.9-1.1)
[2019-12-09 12:00] VITALS: BP 165/69
--- NOTE | 2019-12-09 13:22 | Infectious Diseases Prog Note ---
Assessment/Plan Assessment: COVID19 neg x2 (11/27 & rapid COVID PCR neg) Sepsis UTI -11/27 u/a wbc 30-40, nit neg, leuk +3; ucx ESBL P. mirablis, ESBL M. morganii Pl effusion, transudate - 11/28 Sp [place] (w: 169, PMN: 2%, L: 49% , LDH: 57, prot 2.5); cx Neg PNA -12/07 CXR: Persistent moderate left pleural effusion with associated atelectasis and/or consolidation. Interval resolution of right basilar opac ities. -12/04 CXR Stable moderate left pleural effusion with associated airspace consolidation. Increasing right basilar airspace opacity which could represent developing consolidation versus worsening atelectasis. -11/28 CXR: Resolved right pleural effusion, status post thoracentesis. No radiographically evident complication Sp cx ESBL P. mirablis (S Meropenem, Zosyn), MDR PsA (S Gentamycin) Influenza ag neg -11/27 CXR: Increasing hazy right lung diffuse opacity. Suspect at least in part due to overlying soft tissue, but developing infiltrate also possible. Persistent and slightly increased left retrocardiac consolidation and slightly increased left pleural effusion -11/27 Bcx NTD -legionella ag urine, M. IgM neg Fever , SP Leukocytosis, SP -12/02 CT abd/p wo: Study substantially limited due to lack of IV contrast and severe anasarca and moderate nonloculated ascites. Left nephroureteral stent in the decompressed left, atrophic renal collecting system. No evident urolithiasis. Incompletely evaluated chronic aortic dissection not well seen on this study due to lack of IV contrast and severe anasarca. Bilateral moderate low-attenuation, partially loculated pleural effusions with extensive passive atelectasis; correlate to exclude superimposed aspiration or pneumonia.Percutaneous gastrostomy tube. Norman catheter in decompressed urinary bladder. Likely chronic appearing right intertrochanteric hip fracture. Possible sacral decubitus ulcer, recommend direct visualization. Acute on chronic hypoxic resp failure JAVIER on CKD; improving- on previous admission Sep-Oct 2019 required HD for short period hx of Recent MDR PnA, sp rx 10/15/19 sp cx ESBL P. mirabilis, MDR P.a. ( S only to Gent) 09/22 Resp cx + MDR PsA (S-gent; I-colistin; R-levofloxacin, Zosyn, angelo) 09/16/19 Sp cx ESBL P. mirablis hx of recent UTI 09/15/19 u/a wbc tnct, nit neg, leuk +3; ucx >100k MDR P. stuarti (S Ceftriaxone, Meropenem) 10/07 u/a wbc tnct, nit neg, leuk ; ucx >100k VRE 10/15/19 u/a wbc tnct; ucx >100k ESBL P. stuarti (S ertapenem, aztreon am) H/o PPM site (pocket) infection and pocket abscess 2ry to S. epi-11/2018, sp >6weeks IV vancomycin 11/27 SP ABBIE: no evidence for vegetation on any of the valves 11/26/18 SP PPM removal: OR findings:The fibrous capsule enclosing the generator was then opened and there was a [id number] amount of yellowish fluid drainage. The generator was then removed.Atrial and ventricular leads were detached. The necrotic tissue of the pocket was then removed and the pocket was flushed with an antibiotic solution. Capsule, wound tissue and lead tip cx: Neg 2d echo: no vegetation seen US chest: 4.6 x 3.4 x 0.9 cm hypoechoic/anechoic area overlying left chest pacemaker power pack. This could represent either a discrete fluid collection or a focal area of very edematous tissue. Infected fluid pocket also possible. 11/18 Bcx 3/4 S. epi; 11/20 Bcx neg; 11/24 Bcx Neg; 11/27 Bcx Neg CAD s/p CABG GERD/gastritis Afib HTN Dysphagia sp GT Aortic dissection s/p repair 2017, S/p PPM Parkinson's Disease Schizophrenia Anxiety COPD Chronic resp failure s/p trach Hx of tracheal bleeding [place] resident ([facility]) VRE and MRSA colonized Plan: -IV Gentamycin #/ for MDR PsA -12/07 SP Meropenem #10 -12/01 SP IV Vancomycin #5 - 11/28 Sp Cefepime #2 and IV Gentamycin x1 -f/u cx -Monitor CBC/CMP, temperatures -PEG/trach care -aspiration precautions -COVID19 neg x2 Subjective Allergies: Coded Allergies: No Known Allergies (Unverified , 10/10/17) afebrile Fio2 40% no leukocytosis Objective Last 24 Hour Vital Signs Date Time Temp Pulse Resp B/P (MAP) Pulse Ox O2 Delivery O2 Flow Rate FiO2 12/09/19 12:00 Mechanical Ventilator 12/09/19 12:00 97.9 73 20 165/69 (101) 100 12/09/19 12:00 50 12/09/19 11:45 165/69 12/09/19 11:10 72 21 50 12/09/19 09:16 65 20 50 12/09/19 08:43 69 157/79 12/09/19 08:42 65 157/79 12/09/19 08:00 64 12/09/19 08:00 50 12/09/19 08:00 98.1 69 20 157/79 (105) 100 12/09/19 08:00 Mechanical Ventilator 12/09/19 07:15 64 20 50 12/09/19 04:55 74 20 50 12/09/19 04:00 60 12/09/19 04:00 Mechanical Ventilator 12/09/19 04:00 69 12/09/19 04:00 98.4 71 20 158/70 (99) 96 12/09/19 03:12 72 20 50 12/09/19 00:44 76 22 50 12/09/19 00:01 164/71 12/09/19 00:00 98.1 73 20 164/71 (102) 97 12/09/19 00:00 72 12/09/19 00:00 60 12/09/19 00:00 Mechanical Ventilator 12/08/19 22:53 69 21 60 12/08/19 21:11 75 146/67 12/08/19 21:10 74 22 60 12/08/19 20:00 Mechanical Ventilator 12/08/19 20:00 60 12/08/19 20:00 97.9 72 20 146/67 (93) 97 12/08/19 20:00 77 12/08/19 18:57 75 23 60 12/08/19 17:38 66 152/73 12/08/19 17:01 66 20 60 12/08/19 16:00 Mechanical Ventilator 12/08/19 16:00 97.9 70 20 150/65 (93) 100 12/08/19 16:00 60 12/08/19 15:31 70 12/08/19 15:05 66 20 60 Height (Feet): 5 Height (Inches): 4.00 Weight (Pounds): 150 General Appearance: no acute distress HEENT: atraumatic, trach in place Respiratory/Chest: no respiratory distress Cardiovascular: regular rhythm Laboratory Tests Test 12/09/19 03:25 12/09/19 09:50 White Blood Count 8.8 K/UL (4.8-10.8) Red Blood Count 2.71 M/UL (4.20-5.40) L Hemoglobin 7.7 G/DL (12.0-16.0) L Hematocrit 23.6 % (37.0-47.0) L Mean Corpuscular Volume 87 FL (80-99) Mean Corpuscular Hemoglobin 28.5 PG (27.0-31.0) Mean Corpuscular Hemoglobin Concent 32.8 G/DL (32.0-36.0) Red Cell Distribution Width 13.7 % (11.6-14.8) Platelet Count 309 K/UL (150-450) Mean Platelet Volume 4.9 FL (6.5-10.1) L Neutrophils (%) (Auto) % (45.0-75.0) Lymphocytes (%) (Auto) % (20.0-45.0) Monocytes (%) (Auto) % (1.0-10.0) Eosinophils (%) (Auto) % (0.0-3.0) Basophils (%) (Auto) % (0.0-2.0) Sodium Level 136 MMOL/L (136-145) Potassium Level 3.4 MMOL/L (3.5-5.1) L Chloride Level 96 MMOL/L (98-107) L Carbon Dioxide Level 26 MMOL/L (21-32) Anion Gap 14 mmol/L (5-15) Blood Urea Nitrogen 114 mg/dL (7-18) H Creatinine 3.6 MG/DL (0.55-1.30) H Estimat Glomerular Filtration Rate 13.6 mL/min (>60) Glucose Level 91 MG/DL (74-106) Uric Acid 7.1 MG/DL (2.6-7.2) Calcium Level 8.0 MG/DL (8.5-10.1) L Phosphorus Level 5.0 MG/DL (2.5-4.9) H Magnesium Level 3.0 MG/DL (1.8-2.4) H Total Bilirubin 0.4 MG/DL (0.2-1.0) Aspartate Amino Transf (AST/SGOT) 56 U/L (15-37) H Alanine Aminotransferase (ALT/SGPT) 18 U/L (12-78) Alkaline Phosphatase 367 U/L (46-116) H C-Reactive Protein, Quantitative 7.4 mg/dL (0.00-0.90) H Pro-B-Type Natriuretic Peptide > 92351 pg/mL (0-125) H Total Protein 5.7 G/DL (6.4-8.2) L Albumin 2.0 G/DL (3.4-5.0) L Globulin 3.7 g/dL Albumin/Globulin Ratio 0.5 (1.0-2.7) L Random Gentamicin Level 2.6 ug/mL Prothrombin Time 12.9 SEC (9.30-11.50) H Prothromb Time International Ratio 1.2 (0.9-1.1) H Current Medications Medications (Trade) Dose Ordered Sig/Penny Route PRN Reason Start Time Stop Time Status Last Admin Dose Admin Acetaminophen (Tylenol) 650 mg Q4H PRN GT Temp >100.5 11/29/19 04:30 12/29/19 04:29 12/06/19 09:14 Amantadine HCl (Symmetrel) 100 mg TWICE A DAY GT 12/07/19 18:00 01/06/20 17:59 12/09/19 08:42 Amlodipine Besylate (Norvasc) 5 mg BID GT 12/08/19 18:00 01/05/20 08:59 12/09/19 08:42 Ascorbic Acid (Vitamin C) 500 mg DAILY GT 11/29/19 09:00 12/29/19 08:59 12/09/19 08:43 Clonidine HCl (Catapres TTS-1) 1 patch ONCE A WEEK TDERMAL 12/03/19 09:00 03/02/20 08:59 12/03/19 09:10 Clotrimazole (Lotrimin) 1 applic THREE TIMES A DAY TOPIC 12/01/19 13:00 02/29/20 12:59 12/09/19 12:01 Epoetin Gelacio (Epoetin Gelacio-EPBX(NON ESRD)) 10,000 unit MON-MON-MON SUBQ 11/29/19 21:00 02/27/20 20:59 12/06/19 21:00 Gentamicin Protocol (Gentamicin pharmacy to dose) 1 ea DAILY PRN MISC Per rx protocol 12/02/19 18:00 01/01/20 17:59 Heparin Sodium (Porcine) (Heparin 5000 units/ml) 5,000 units EVERY 12 HOURS SUBQ 11/29/19 09:00 01/13/20 08:59 12/08/19 21:11 Hydralazine HCl (Apresoline) 25 mg Q4H PRN ORAL bp over 160 syst 12/08/19 12:30 03/07/20 12:29 12/09/19 11:45 Lansoprazole (Prevacid) 30 mg BID GT 12/08/19 18:00 12/31/19 11:59 12/09/19 08:42 Metoclopramide HCl (Reglan) 10 mg Q6H IVP 12/04/19 10:00 01/03/20 09:59 12/09/19 09:16 Metoprolol Tartrate (Lopressor) 12.5 mg Q12HR ORAL 12/03/19 21:00 03/02/20 08:59 12/09/19 08:43 Polyethylene Glycol (Miralax) 17 gm BEDTIME GT 11/29/19 21:00 12/29/19 20:59 12/08/19 21:09 Vitamin B Complex/ Vit C/Folic Acid (Nephrovite) 1 tab DAILY GT 11/29/19 09:00 12/29/19 08:59 12/09/19 08:42 Zinc Sulfate (Zinc Sulfate) 220 mg DAILY GT 11/29/19 09:00 02/27/20 08:59 12/09/19 08:43 Doreen Nino M.D. Dec 09, 2019 13:22
--- NOTE | 2019-12-09 15:30 | Nephrology Progress Note ---
Assessment/Plan Problem List: (1) JAVIER (acute kidney injury) (2) Renal failure (ARF), acute on chronic (3) Feeding by G-tube (4) Tracheostomy in place (5) Electrolyte imbalance (6) Anemia (7) Respiratory failure, acute and chronic (8) Elevated lipase Assessment Patient is presented with sepsis and pneumonia and UTI, hypoxia Patient has acute renal failure, possible underlying chronic kidney failure Severe anemia Electrolyte imbalances: Hyponatremia, hypo-kalemia Chronic respiratory failure, COPD exacerbation Has sacral decubitus ulcer stage IV PEG Plan December 08: Renal parameters unchanged. Urine output maintained. Patient slightly more alert and less edematous. Continue per current management. Potassium supplement given. Serum lipase ordered in a.m. December 07: Renal parameters essentially unchanged. Decent urine output. Patient remains edematous. Electrolyte imbalances noted. Discussed with RN. As needed blood pressure medication ordered. Continue current management. December 06: Renal parameters unchanged. Slightly lower serum sodium and potas sium. IV fluid discontinued. Potassium supplement given. Creatinine clearance remains around 14/15 mL/min. Patient edematous. May require a course of dialysis treatment and ultrafiltration. Will discuss with Dr. Dong. December 05: Renal parameters unchanged. Discussed with ERASMO Echevarria. Electrolyte abnormalities addressed. Continue to monitor renal parameters. Will discuss with PMD possible need for dialysis trial. Serum lipase decreasing. December 04: Patient started on IV fluid with sodium bicarb by Dr. Dong. So at this time we will hold the diuretics. Will follow-up renal parameters and electrolytes. Continue rest of management. Continue monitor lipase level December 03: No chemistry panel done today. Appears clinically stable. Will order renal parameters and lipase panel for tomorrow. Continue per consultants. Patient remains full code. December 02: Labs reviewed. Serum lipase decreasing. On 20 cc an hour Nepro via GT tube. Renal parameters unchanged. Urine output well maintained. Continue per consultants. White blood cells 17,000, hemoglobin 8.9. December 01: Lab reviewed. Hemoglobin higher. Serum creatinine 3.4. Creatinine clearance calculated . Serum lipase lowering. Continue per current management. November 30: Patient transfused. Hemoglobin higher. Serum sodium lower. Renal parameters unchanged. Trial of 3% saline. Continue monitor renal parameters. May require dialysis treatment depending on the how her condition evolves. Previously Consider transfusion Urine studies Adjust blood pressure medication Albumin bolus Norman catheter, intake and output Monitor renal parameters Avoid nephrotoxic's Antibiotics Per orders Subjective ROS Limited/Unobtainable: Yes Objective Objective Last 24 Hour Vital Signs Date Time Temp Pulse Resp B/P (MAP) Pulse Ox O2 Delivery O2 Flow Rate FiO2 12/09/19 13:07 71 22 50 12/09/19 12:00 Mechanical Ventilator 12/09/19 12:00 97.9 73 20 165/69 (101) 100 12/09/19 12:00 50 12/09/19 12:00 73 12/09/19 11:45 165/69 12/09/19 11:10 72 21 50 12/09/19 09:16 65 20 50 12/09/19 08:43 69 157/79 12/09/19 08:42 65 157/79 12/09/19 08:00 64 12/09/19 08:00 50 12/09/19 08:00 98.1 69 20 157/79 (105) 100 12/09/19 08:00 Mechanical Ventilator 12/09/19 07:15 64 20 50 12/09/19 04:55 74 20 50 12/09/19 04:00 60 12/09/19 04:00 Mechanical Ventilator 12/09/19 04:00 69 12/09/19 04:00 98.4 71 20 158/70 (99) 96 12/09/19 03:12 72 20 50 12/09/19 00:44 76 22 50 12/09/19 00:01 164/71 12/09/19 00:00 98.1 73 20 164/71 (102) 97 12/09/19 00:00 72 12/09/19 00:00 60 12/09/19 00:00 Mechanical Ventilator 12/08/19 22:53 69 21 60 12/08/19 21:11 75 146/67 12/08/19 21:10 74 22 60 12/08/19 20:00 Mechanical Ventilator 12/08/19 20:00 60 12/08/19 20:00 97.9 72 20 146/67 (93) 97 12/08/19 20:00 77 12/08/19 18:57 75 23 60 12/08/19 17:38 66 152/73 12/08/19 17:01 66 20 60 12/08/19 16:00 Mechanical Ventilator 10/25/20 16:00 97.9 70 20 150/65 (93) 100 12/08/19 16:00 60 12/08/19 15:31 70 Intake and Output 12/08/19 12/09/19 19:00 07:00 Intake Total 460 ml 640 ml Output Total 1100 ml 1050 ml Balance -640 ml -410 ml Intake Free Water 100 ml 200 ml Tube Feeding 360 ml 440 ml Output Urine Total 1100 ml 1050 ml Current Medications Medications (Trade) Dose Ordered Sig/Penny Route PRN Reason Start Time Stop Time Status Last Admin Dose Admin Acetaminophen (Tylenol) 650 mg Q4H PRN GT Temp >100.5 11/29/19 04:30 12/29/19 04:29 12/06/19 09:14 Amantadine HCl (Symmetrel) 100 mg TWICE A DAY GT 12/07/19 18:00 01/06/20 17:59 12/09/19 08:42 Amlodipine Besylate (Norvasc) 5 mg BID GT 12/08/19 18:00 01/05/20 08:59 12/09/19 08:42 Ascorbic Acid (Vitamin C) 500 mg DAILY GT 11/29/19 09:00 12/29/19 08:59 12/09/19 08:43 Clonidine HCl (Catapres TTS-1) 1 patch ONCE A WEEK TDERMAL 12/03/19 09:00 03/02/20 08:59 12/03/19 09:10 Clotrimazole (Lotrimin) 1 applic THREE TIMES A DAY TOPIC 12/01/19 13:00 02/29/20 12:59 12/09/19 12:01 Epoetin Gelacio (Epoetin Gelacio-EPBX(NON ESRD)) 10,000 unit MON-WED-MON SUBQ 11/29/19 21:00 02/27/20 20:59 12/06/19 21:00 Gentamicin Protocol (Gentamicin pharmacy to dose) 1 ea DAILY PRN MISC Per rx protocol 12/02/19 18:00 01/01/20 17:59 Heparin Sodium (Porcine) (Heparin 5000 units/ml) 5,000 units EVERY 12 HOURS SUBQ 11/29/19 09:00 01/13/20 08:59 12/08/19 21:11 Hydralazine HCl (Apresoline) 25 mg Q4H PRN ORAL bp over 160 syst 12/08/19 12:30 03/07/20 12:29 12/09/19 11:45 Lansoprazole (Prevacid) 30 mg BID GT 12/08/19 18:00 12/31/19 11:59 12/09/19 08:42 Metoclopramide HCl (Reglan) 10 mg Q6H IVP 12/04/19 10:00 01/03/20 09:59 12/09/19 09:16 Metoprolol Tartrate (Lopressor) 12.5 mg Q12HR ORAL 12/03/19 21:00 03/02/20 08:59 12/09/19 08:43 Polyethylene Glycol (Miralax) 17 gm BEDTIME GT 11/29/19 21:00 12/29/19 20:59 12/08/19 21:09 Vitamin B Complex/ Vit C/Folic Acid (Nephrovite) 1 tab DAILY GT 11/29/19 09:00 12/29/19 08:59 12/09/19 08:42 Zinc Sulfate (Zinc Sulfate) 220 mg DAILY GT 11/29/19 09:00 02/27/20 08:59 12/09/19 08:43 Laboratory Tests 12/09/19 03:25: White Blood Count 8.8, Red Blood Count 2.71L, Hemoglobin 7.7L, Hematocrit 23.6L, Mean Corpuscular Volume 87, Mean Corpuscular Hemoglobin 28.5, Mean Corpuscular Hemoglobin Concent 32.8, Red Cell Distribution Width 13.7, Platelet Count 309, Mean Platelet Volume 4.9L, Neutrophils (%) (Auto) , Lymphocytes (%) (Auto) , Monocytes (%) (Auto) , Eosinophils (%) (Auto) , Basophils (%) (Auto) , Sodium Level 136, Potassium Level 3.4L, Chloride Level 96L, Carbon Dioxide Level 26, Anion Gap 14, Blood Urea Nitrogen 114H, Creatinine 3.6H, Estimat Glomerular Filtration Rate 13.6, Glucose Level 91, Uric Acid 7.1, Calcium Level 8.0L, Phosphorus Level 5.0H, Magnesium Level 3.0H, Total Bilirubin 0.4, Aspartate Amino Transf (AST/SGOT) 56H, Alanine Aminotransferase (ALT/SGPT) 18, Alkaline Phosphatase 367H, C-Reactive Protein, Quantitative 7.4H, Pro-B-Type Natriuretic Peptide > 91296Y, Total Protein 5.7L, Albumin 2.0L, Globulin 3.7, Albumin/Globulin Ratio 0.5L, Random Gentamicin Level 2.6 12/09/19 09:50: Prothrombin Time 12.9H, Prothromb Time International Ratio 1.2H Height (Feet): 5 Height (Inches): 4.00 Weight (Pounds): 150 General Appearance: no apparent distress EENT: other - Trach to vent Cardiovascular: normal rate Respiratory/Chest: decreased breath sounds Abdomen: distended Objective No change Johnny Houston MD Dec 09, 2019 15:29
[2019-12-09 16:00] VITALS: BP 150/83
--- NOTE | 2019-12-09 17:00 | Surgery Progress Note ---
Surgery Progress Note Subjective Symptoms: improved, tolerating diet, passing flatus, BM Objective Last 24 Hour Vital Signs Date Time Temp Pulse Resp B/P (MAP) Pulse Ox O2 Delivery O2 Flow Rate FiO2 12/09/19 16:00 Mechanical Ventilator 12/09/19 15:05 76 20 50 12/09/19 13:07 71 22 50 12/09/19 12:00 Mechanical Ventilator 12/09/19 12:00 97.9 73 20 165/69 (101) 100 12/09/19 12:00 50 12/09/19 12:00 73 12/09/19 11:45 165/69 12/09/19 11:10 72 21 50 12/09/19 09:16 65 20 50 12/09/19 08:43 69 157/79 12/09/19 08:42 65 157/79 12/09/19 08:00 64 12/09/19 08:00 50 12/09/19 08:00 98.1 69 20 157/79 (105) 100 12/09/19 08:00 Mechanical Ventilator 12/09/19 07:15 64 20 50 12/09/19 04:55 74 20 50 12/09/19 04:00 60 12/09/19 04:00 Mechanical Ventilator 12/09/19 04:00 69 12/09/19 04:00 98.4 71 20 158/70 (99) 96 12/09/19 03:12 72 20 50 12/09/19 00:44 76 22 50 12/09/19 00:01 164/71 12/09/19 00:00 98.1 73 20 164/71 (102) 97 12/09/19 00:00 72 12/09/19 00:00 60 12/09/19 00:00 Mechanical Ventilator 12/08/19 22:53 69 21 60 12/08/19 21:11 75 146/67 12/08/19 21:10 74 22 60 12/08/19 20:00 Mechanical Ventilator 12/08/19 20:00 60 12/08/19 20:00 97.9 72 20 146/67 (93) 97 12/08/19 20:00 77 12/08/19 18:57 75 23 60 12/08/19 17:38 66 152/73 12/08/19 17:01 66 20 60 I&O Intake and Output 12/08/19 12/09/19 19:00 07:00 Intake Total 460 ml 640 ml Output Total 1100 ml 1050 ml Balance -640 ml -410 ml Intake Free Water 100 ml 200 ml Tube Feeding 360 ml 440 ml Output Urine Total 1100 ml 1050 ml Dressing: saturated Cardiovascular: RSR Respiratory: decreased breath sounds Abdomen: non-tender, present bowel sounds, non-distended Extremities: edema, no tenderness, no cyanosis, pulses, other Laboratory Tests Test 12/09/19 03:25 12/09/19 09:50 White Blood Count 8.8 K/UL (4.8-10.8) Red Blood Count 2.71 M/UL (4.20-5.40) L Hemoglobin 7.7 G/DL (12.0-16.0) L Hematocrit 23.6 % (37.0-47.0) L Mean Corpuscular Volume 87 FL (80-99) Mean Corpuscular Hemoglobin 28.5 PG (27.0-31.0) Mean Corpuscular Hemoglobin Concent 32.8 G/DL (32.0-36.0) Red Cell Distribution Width 13.7 % (11.6-14.8) Platelet Count 309 K/UL (150-450) Mean Platelet Volume 4.9 FL (6.5-10.1) L Neutrophils (%) (Auto) % (45.0-75.0) Lymphocytes (%) (Auto) % (20.0-45.0) Monocytes (%) (Auto) % (1.0-10.0) Eosinophils (%) (Auto) % (0.0-3.0) Basophils (%) (Auto) % (0.0-2.0) Sodium Level 136 MMOL/L (136-145) Potassium Level 3.4 MMOL/L (3.5-5.1) L Chloride Level 96 MMOL/L (98-107) L Carbon Dioxide Level 26 MMOL/L (21-32) Anion Gap 14 mmol/L (5-15) Blood Urea Nitrogen 114 mg/dL (7-18) H Creatinine 3.6 MG/DL (0.55-1.30) H Estimat Glomerular Filtration Rate 13.6 mL/min (>60) Glucose Level 91 MG/DL (74-106) Uric Acid 7.1 MG/DL (2.6-7.2) Calcium Level 8.0 MG/DL (8.5-10.1) L Phosphorus Level 5.0 MG/DL (2.5-4.9) H Magnesium Level 3.0 MG/DL (1.8-2.4) H Total Bilirubin 0.4 MG/DL (0.2-1.0) Aspartate Amino Transf (AST/SGOT) 56 U/L (15-37) H Alanine Aminotransferase (ALT/SGPT) 18 U/L (12-78) Alkaline Phosphatase 367 U/L (46-116) H C-Reactive Protein, Quantitative 7.4 mg/dL (0.00-0.90) H Pro-B-Type Natriuretic Peptide > 06936 pg/mL (0-125) H Total Protein 5.7 G/DL (6.4-8.2) L Albumin 2.0 G/DL (3.4-5.0) L Globulin 3.7 g/dL Albumin/Globulin Ratio 0.5 (1.0-2.7) L Random Gentamicin Level 2.6 ug/mL Prothrombin Time 12.9 SEC (9.30-11.50) H Prothromb Time International Ratio 1.2 (0.9-1.1) H Plan Problems: (1) Dehydration (2) Acidosis (3) Anemia (4) Depression (5) Pancreatitis Assessment & Plan: 49F leukocytosis, elevated lip, lft's noted septic. work up ongoing npo iv fluids iv abx imaging ordered lipase worsening npo pending CT panc lip / jeanne improved diet as tolerated improving DAILY ESTIMATED NEEDS: Needs based on Critical care, wound, 56.8kg 28-33 kcals/kg 5708-6700 total kcals 1.25-2 g protein/kg 71-114 g total protein Fluid per MD NUTRITION DIAGNOSIS: * Swallowing difficulty R/T dysphagia, respiratory status as evidenced by vent dep via trach, GT Dep. * Increase kcal and pro needs r/t wound healing and wasting as evidenced by stage 4 sacral wound. CURRENT TF:Nepro @ 40ml/hr x 20 hrs ENTERAL NUTRITION RECOMMENDATIONS: Nepro @ 45ml/hr x 20 hrs to provide 900ml, 1620kcal, 73g prot, 654ml free water * Increase TF to goal of 45ml/hr x20 hrs to better meet est needs * Water flush per MD * HOB over 30 degrees ADDITIONAL RECOMMENDATIONS: * Per SNF: HT=63", ZV=[id number] -> rec calibrated bedscale wt (Bed reads 79.4kg) * Rec TF increase as above to better meet est needs * F/up w/ H&P * WC-> continue Vit C, ZnSO4, Nephrovite Add FRANKLIN in 4oz BID for wound care Lung bases: See below. Pleural space: Bilateral moderate low-attenuation, partially loculated pleural effusions with extensive passive atelectasis; correlate to exclude superimposed aspiration or pneumonia. Liver: Ill-defined right hepatic lobe. 2.9 cm hypodensity not well evaluated on this study. Gallbladder and bile ducts: Unremarkable. No calcified stones. No ductal dilation. Pancreas: Unremarkable. No ductal dilation. Spleen: Unremarkable. No splenomegaly. Adrenals: Unremarkable. No mass. Kidneys and ureters: Left nephroureteral stent in the decompressed left, atrophic renal collecting system. No evident urolithiasis. No hydronephrosis. Stomach and bowel: Unremarkable. No obstruction. No mucosal thickening. Intraperitoneal space: Moderate nonloculated ascites. No free air. Bones/joints: Potentially chronic appearing right intertrochanteric hip fracture. Possible sacral decubitus ulcer, recommend direct visualization. No dislocation. Soft tissues: Severe anasarca. Incompletely evaluated chronic aortic dissection not well seen on this study due to lack of IV contrast and severe anasarca. Vasculature: Descending thoracic aortic ectasia 4 cm diameter above the hiatus. No abdominal aortic aneurysm. Lymph nodes: Unremarkable. No enlarged lymph nodes. Tubes, lines and devices: Percutaneous gastrostomy tube. Norman catheter in decompressed urinary bladder. IMPRESSION: 1. Study substantially limited due to lack of IV contrast and severe anasarca and moderate nonloculated ascites. 2. Left nephroureteral stent in the decompressed left, atrophic renal collecting system. 3. No evident urolithiasis. 4. Incompletely evaluated chronic aortic dissection not well seen on this study due to lack of IV contrast and severe anasarca. 5. Bilateral moderate low-attenuation, partially loculated pleural effusions with extensive passive atelectasis; correlate to exclude superimposed aspiration or pneumonia. 6. Percutaneous gastrostomy tube. 7. Norman catheter in decompressed urinary bladder. 8. Likely chronic appearing right intertrochanteric hip fracture. 9. Possible sacral decubitus ulcer, recommend direct visualization. There is no acute intracranial hemorrhage, mass effect or cortical edema. There is no shift of the midline structures. The ventricles, cisterns and sulci are within normal limits for age. Minimal periventricular hypoattenuation is seen, a nonspecific finding. Extensive paranasal sinus disease with retention cyst partially visualized within the right maxillary sinus. Soft tissue prominence the posterior aspect of the turbinates also noted in the nasal cavity. This is not evaluated adequately or completely on this study but similar findings noted previously. IMPRESSION: No evidence of acute intracranial hemorrhage, mass effect or cortical edema. Extensive paranasal sinus disease. (6) Pleural effusion (7) Renal failure (8) Respiratory failure (9) Schizophrenia (10) Hypoxia (11) Sepsis (12) UTI (urinary tract infection) (13) Pneumonia (14) ARF (acute renal failure) (15) NSTEMI (non-ST elevated myocardial infarction) (16) Tracheostomy in place (17) Feeding by G-tube (18) JAVIER (acute kidney injury) (19) Acute encephalopathy (20) Sacral decubitus ulcer, stage IV Assessment & Plan: Pt presented on admission with Full thickness stage 4 Sacral Pressure injury which extends into R gluteal cheek. Base of wound is granular with bone exposure at base of sacrococcygeal. Pt presented on admission with tracheostomy, GT, Full Thickness Pressure Injury Sacrococcygeal.Base of wound is 40% soft necrosis, 60% noni with undermined borders(L)5.8cm x (W)5.5cm x (D)1.5cm, undermining clockwise 10-1 by 2.7cm @12o'clock.(+) Epibole along edges with scattered slough. Small area that is purple and indurated noted clockwise @7-8o'clock along borders.Small amt serous exudate noted.Mild odor noted. hyperpigmentation periwound. At L ischium are two areas of dry pink epithelial with surrounding hyperpigmentation. Both heels are boggy with [id number] erythema. Tx.Plan: Cleanse sacral wound with Saline. Loosely pack with Hydrogel impregnated kerlix. Apply Moisture Barrier Paste periwound. Cover with Optifoam drsg Daily and prn. Apply Cavilon Skin Barrier to both heels and malleoli. Cover eachsite with Optifoam drsgs. Change every 7 days and prn. Reposition at least every 2hours or as tolerated. Off-load heels with pillow. APM/Maxwell Mattress overlay. (21) Chronic respiratory failure (22) Hypokalemia (23) Ascites (24) Bacteremia (25) Hypernatremia (26) Proteinuria (27) Electrolyte imbalance (28) Pacemaker (29) ACS (acute coronary syndrome) (30) Aortic dissection, thoracic (31) Respiratory failure, acute and chronic (32) JAVIER (acute kidney injury) (33) Abrasion of lip, initial encounter (34) COPD with exacerbation (35) Elevated alkaline phosphatase level (36) Renal failure (ARF), acute on chronic (37) HCAP (healthcare-associated pneumonia) (38) Lane Alexis Dec 09, 2019 17:00
[2019-12-09] MEDS ORDERED: Tubing IV Secondary IV ONE (18:10)
[2019-12-09] MEDS ORDERED: NS 275ml ONE (18:10)
[2019-12-09 20:00] VITALS: BP 156/72
[2019-12-09] MEDS: Miralax 17gm pkt GT SCH (20:29)
[2019-12-09] MEDS: Epoetin Alfa-EPBX (NON ESRD)10,000 unit/ml vial SUBQ SCH (20:29)
--- NOTE | 2019-12-09 21:15 | Cardiology Progress Note ---
Subjective DATE OF SERVICE: Dec 09, 2019 On vent support BP stabilizing. Heart rates controlled. Head CT (12/05) reveals pansinusitis; no acute process CXR (12/05/19) reveals worsening left consolidation and eff'n, with new right infiltrate/atelectasis. Renal fxn unchanged; hemoglobin dropping to 7.7gm/dl. ABG: (12/06) 7.47/37/74 Monitor: Sinus. No further bradycardia. No pauses. CT scan confirmed chronic aortic dissection Objective Last 24 Hour Vital Signs Date Time Temp Pulse Resp B/P (MAP) Pulse Ox O2 Delivery O2 Flow Rate FiO2 12/09/19 20:43 70 19 60 12/09/19 20:29 66 156/76 12/09/19 20:03 50 12/09/19 20:02 Mechanical Ventilator 12/09/19 20:02 65 12/09/19 19:00 82 21 50 12/09/19 17:37 70 150/83 12/09/19 17:05 70 22 50 12/09/19 16:00 50 12/09/19 16:00 73 12/09/19 16:00 Mechanical Ventilator 12/09/19 16:00 98.1 71 20 150/83 (105) 100 12/09/19 15:05 76 20 50 12/09/19 13:07 71 22 50 12/09/19 12:00 Mechanical Ventilator 12/09/19 12:00 97.9 73 20 165/69 (101) 100 12/09/19 12:00 50 12/09/19 12:00 73 12/09/19 11:45 165/69 12/09/19 11:10 72 21 50 12/09/19 09:16 65 20 50 12/09/19 08:43 69 157/79 12/09/19 08:42 65 157/79 12/09/19 08:00 64 12/09/19 08:00 50 12/09/19 08:00 98.1 69 20 157/79 (105) 100 12/09/19 08:00 Mechanical Ventilator 12/09/19 07:15 64 20 50 12/09/19 04:55 74 20 50 12/09/19 04:00 60 12/09/19 04:00 Mechanical Ventilator 12/09/19 04:00 69 12/09/19 04:00 98.4 71 20 158/70 (99) 96 12/09/19 03:12 72 20 50 12/09/19 00:44 76 22 50 12/09/19 00:01 164/71 12/09/19 00:00 98.1 73 20 164/71 (102) 97 12/09/19 00:00 72 12/09/19 00:00 60 12/09/19 00:00 Mechanical Ventilator 12/08/19 22:53 69 21 60 ROS: no changes from my prior evaluation 11/30/19 HEENT: Thin secretions ET Tube RHYTHM: NSR LUNGS: bilateral rhonchi CARDIAC: normal rate, regular rhythm, normal S1 and S2 ABDOMEN: normal bowel sounds, G-Tube intact EXTREMITIES: +2 edema Laboratory Tests Test 12/09/19 03:25 12/09/19 09:50 White Blood Count 8.8 K/UL (4.8-10.8) Red Blood Count 2.71 M/UL (4.20-5.40) L Hemoglobin 7.7 G/DL (12.0-16.0) L Hematocrit 23.6 % (37.0-47.0) L Mean Corpuscular Volume 87 FL (80-99) Mean Corpuscular Hemoglobin 28.5 PG (27.0-31.0) Mean Corpuscular Hemoglobin Concent 32.8 G/DL (32.0-36.0) Red Cell Distribution Width 13.7 % (11.6-14.8) Platelet Count 309 K/UL (150-450) Mean Platelet Volume 4.9 FL (6.5-10.1) L Neutrophils (%) (Auto) % (45.0-75.0) Lymphocytes (%) (Auto) % (20.0-45.0) Monocytes (%) (Auto) % (1.0-10.0) Eosinophils (%) (Auto) % (0.0-3.0) Basophils (%) (Auto) % (0.0-2.0) Sodium Level 136 MMOL/L (136-145) Potassium Level 3.4 MMOL/L (3.5-5.1) L Chloride Level 96 MMOL/L (98-107) L Carbon Dioxide Level 26 MMOL/L (21-32) Anion Gap 14 mmol/L (5-15) Blood Urea Nitrogen 114 mg/dL (7-18) H Creatinine 3.6 MG/DL (0.55-1.30) H Estimat Glomerular Filtration Rate 13.6 mL/min (>60) Glucose Level 91 MG/DL (74-106) Uric Acid 7.1 MG/DL (2.6-7.2) Calcium Level 8.0 MG/DL (8.5-10.1) L Phosphorus Level 5.0 MG/DL (2.5-4.9) H Magnesium Level 3.0 MG/DL (1.8-2.4) H Total Bilirubin 0.4 MG/DL (0.2-1.0) Aspartate Amino Transf (AST/SGOT) 56 U/L (15-37) H Alanine Aminotransferase (ALT/SGPT) 18 U/L (12-78) Alkaline Phosphatase 367 U/L (46-116) H C-Reactive Protein, Quantitative 7.4 mg/dL (0.00-0.90) H Pro-B-Type Natriuretic Peptide > 84882 pg/mL (0-125) H Total Protein 5.7 G/DL (6.4-8.2) L Albumin 2.0 G/DL (3.4-5.0) L Globulin 3.7 g/dL Albumin/Globulin Ratio 0.5 (1.0-2.7) L Random Gentamicin Level 2.6 ug/mL Prothrombin Time 12.9 SEC (9.30-11.50) H Prothromb Time International Ratio 1.2 (0.9-1.1) H Assessment/Plan Assessment/Plan Hypertension/HHD with elevated BP trend. Respiratory failure Acute myocardial ischemia and possible NSTE myocardial infarction Ischemic cardiomyopathy - s/p CABG Hx AAA repair with chronic dissection Paroxysmal AFib Pacemaker explant due to infection Decubitus sepsis Low lipid parameters Renal failure ac/chr Degenerative aortic valve disease (Mild-mod AI and ) Mild pulmonary hypertension Hypokalemia Chronic diastolic CHF with elevated BNP Anemia, ac/chronic Antimicrobials Anti-plt therapy Titrate beta flori - now stable heart rate on low dose regimen. Vent support Diuresis as able Titrate amlodipine dose for increased BP trend. Reassess beta flori dosing based on clinical parameters. Consider PRBC transfusion for further drop in hemoglobin. Deni Willams MD Dec 09, 2019 21:15
--- NOTE | 2019-12-09 21:43 | General Progress Note ---
Subjective Constitutional: Reports: no symptoms HEENT: Reports: no symptoms Cardiovascular: Reports: no symptoms Respiratory: Reports: no symptoms Gastrointestinal/Abdominal: Reports: no symptoms Genitourinary: Reports: no symptoms Neurologic/Psychiatric: Reports: no symptoms Hematologic/Lymphatic: Reports: no symptoms Allergies: Coded Allergies: No Known Allergies (Unverified , 10/10/17) Objective Last 24 Hour Vital Signs Date Time Temp Pulse Resp B/P (MAP) Pulse Ox O2 Delivery O2 Flow Rate FiO2 12/09/19 20:43 70 19 60 12/09/19 20:29 66 156/76 12/09/19 20:03 50 12/09/19 20:02 Mechanical Ventilator 12/09/19 20:02 65 12/09/19 20:00 98.2 66 20 156/72 (100) 97 12/09/19 19:00 82 21 50 12/09/19 17:37 70 150/83 12/09/19 17:05 70 22 50 12/09/19 16:00 50 12/09/19 16:00 73 12/09/19 16:00 Mechanical Ventilator 12/09/19 16:00 98.1 71 20 150/83 (105) 100 12/09/19 15:05 76 20 50 12/09/19 13:07 71 22 50 12/09/19 12:00 Mechanical Ventilator 12/09/19 12:00 97.9 73 20 165/69 (101) 100 12/09/19 12:00 50 12/09/19 12:00 73 12/09/19 11:45 165/69 12/09/19 11:10 72 21 50 12/09/19 09:16 65 20 50 12/09/19 08:43 69 157/79 12/09/19 08:42 65 157/79 12/09/19 08:00 64 12/09/19 08:00 50 12/09/19 08:00 98.1 69 20 157/79 (105) 100 12/09/19 08:00 Mechanical Ventilator 12/09/19 07:15 64 20 50 12/09/19 04:55 74 20 50 12/09/19 04:00 60 12/09/19 04:00 Mechanical Ventilator 12/09/19 04:00 69 12/09/19 04:00 98.4 71 20 158/70 (99) 96 12/09/19 03:12 72 20 50 12/09/19 00:44 76 22 50 12/09/19 00:01 164/71 12/09/19 00:00 98.1 73 20 164/71 (102) 97 12/09/19 00:00 72 12/09/19 00:00 60 12/09/19 00:00 Mechanical Ventilator 12/08/19 22:53 69 21 60 Intake and Output 12/08/19 12/09/19 19:00 07:00 Intake Total 460 ml 690 ml Output Total 1100 ml 1050 ml Balance -640 ml -360 ml Intake Free Water 100 ml 250 ml Tube Feeding 360 ml 440 ml Output Urine Total 1100 ml 1050 ml Laboratory Tests 12/09/19 03:25: White Blood Count 8.8, Red Blood Count 2.71L, Hemoglobin 7.7L, Hematocrit 23.6L, Mean Corpuscular Volume 87, Mean Corpuscular Hemoglobin 28.5, Mean Corpuscular Hemoglobin Concent 32.8, Red Cell Distribution Width 13.7, Platelet Count 309, Mean Platelet Volume 4.9L, Neutrophils (%) (Auto) , Lymphocytes (%) (Auto) , Monocytes (%) (Auto) , Eosinophils (%) (Auto) , Basophils (%) (Auto) , Sodium Level 136, Potassium Level 3.4L, Chloride Level 96L, Carbon Dioxide Level 26, Anion Gap 14, Blood Urea Nitrogen 114H, Creatinine 3.6H, Estimat Glomerular Filtration Rate 13.6, Glucose Level 91, Uric Acid 7.1, Calcium Level 8.0L, Phosphorus Level 5.0H, Magnesium Level 3.0H, Total Bilirubin 0.4, Aspartate Amino Transf (AST/SGOT) 56H, Alanine Aminotransferase (ALT/SGPT) 18, Alkaline Phosphatase 367H, C-Reactive Protein, Quantitative 7.4H, Pro-B-Type Natriuretic Peptide > 34525X, Total Protein 5.7L, Albumin 2.0L, Globulin 3.7, Albumin/Globulin Ratio 0.5L, Random Gentamicin Level 2.6 12/09/19 09:50: Prothrombin Time 12.9H, Prothromb Time International Ratio 1.2H Height (Feet): 5 Height (Inches): 4.00 Weight (Pounds): 150 General Appearance: WD/WN, no apparent distress, alert, lethargic EENT: normal ENT inspection Neck: supple Cardiovascular: normal rate, regular rhythm, no gallop/murmur, no JVD Respiratory/Chest: no respiratory distress, no accessory muscle use, decreased breath sounds, rhonchi - bilaterally Abdomen: normal bowel sounds, non tender, soft, no organomegaly, no mass Extremities: non-tender Neurologic: alert, oriented x 3, responsive Assessment/Plan Status Narrative Patient condition continued to be improved she is now afebrile hemodynamically stable without tachycardia at rest and without respiratory distress urine output was 1100 and periorbital edema has markedly improved and no peripheral edema is been 0-1+ now off all narcotic analgesic she is now off her psychiatric medication and her cognition status and behavior diabetes do not appear to be affected by the absence of the awake medication repeat laboratory tests will be done in Lucas Gutierrez MD, MD Dec 09, 2019 21:43
[2019-12-10] VITALS: BP 150/70
[2019-12-10] MEDS: Metoclopramide 10mg/2ml Inj IVP SCH ×4 (03:04→21:10)
[2019-12-10 04:00] VITALS: BP 154/68
[2019-12-10 05:18] LABS: HEMOGLOBIN 7.4 G/DL (12.0-16.0); MEAN CORPUSCULAR VOLUME 86 FL (80-99); PLATELET COUNT 288 K/UL (150-450); RED BLOOD COUNT 2.68 M/UL (4.20-5.40); RED CELL DISTRIBUTION WIDTH 13.7 % (11.6-14.8)
[2019-12-10 05:26] LABS: ALBUMIN/GLOBULIN RATIO 0.6 (1.0-2.7); BILIRUBIN,TOTAL 0.3 MG/DL (0.2-1.0); CALCIUM 8.2 MG/DL (8.5-10.1); CREATININE 3.5 MG/DL (0.55-1.30); PHOSPHORUS 4.8 MG/DL (2.5-4.9); POTASSIUM 3.6 MMOL/L (3.5-5.1)
--- NOTE | 2019-12-10 06:44 | Hematology/Onc Progress Note ---
Assessment/Plan Assessment/Plan Assessment and Recs # Leukocytosis, now with uti, though in past has had pna, pacemaker site infection and bacteremia --> is s/p pm removal and also pocket infection is better --> per cards recs in re to tach/davis --> wbc 29-->16-->17-->7 --> ABX vanc/angelo-->gent/angelo --> ID recs are noted # Anemia of chronic disease due to underlying chronic medical issues, multifactorial --> Anemia workup has been reviewed, cw acd --> No evidence of hemolysis is noted, peripheral smear has been reviewed. --> Hgb goal >7. Transfuse prn. --> Epogen started sq --> Medications have been reviewed --> low threshold for gi evaluation in case has occult + --> hgb 7.1-->7.8-->>>6.7->9.2-->8.9->8.2->8.5->7.7->7.4 --> 1 unit prbc10/17 --> gi eval as needed # Thrombocytois is likely reactive process, is s/p infection --> plt trend 358-->361->349 --> p smear reviewed # JAVIER initially >2 --> on ivfs -> may need hd per Dr. [place] # Elevated d-dimer --> venous duplex and v/q scan neg --> negative results # Dysphagia s/p peg --> as per gi # Thoracic aortic dissection s/p repair early 2017 # Chronic Resp failure -> s/p trach/vent # Psychiatric history on ativan/haldol # [place] resident # Dvt ppx --> heparin sq The timing of this note does not necessarily reflect the time of the patient was seen. Greatly appreciate consultation. Subjective Constitutional: Denies: no symptoms, chills, fever, malaise, weakness, other HEENT: Denies: no symptoms, eye pain, blurred vision, tearing, double vision, ear pain, ear discharge, nose pain, nose congestion, throat pain, throat swelling, mouth pain, mouth swelling, other Cardiovascular: Denies: no symptoms, chest pain, edema, irregular heart rate, lightheadedness, palpitations, syncope, other Respiratory: Denies: no symptoms, cough, shortness of breath, SOB with excertion, SOB at rest, sputum, wheezing, other Genitourinary: Denies: no symptoms, burning, discharge, frequency, flank pain, hematuria, incontinence, pain, urgency, other Neurologic/Psychiatric: Denies: no symptoms, anxiety, depressed, emotional problems, headache, numbness, paresthesia, pre-existing deficit, seizure, tingling, tremors, weakness, other Endocrine: Denies: no symptoms, excessive sweating, flushing, intolerance to cold, intolerance to heat, increased hunger, increased thirst, increased urine, unexplained weight gain, unexplained weight loss, other Hematologic/Lymphatic: Denies: no symptoms, anemia, easy bleeding, easy bruising, adenopathy, other Allergies: Coded Allergies: No Known Allergies (Unverified , 10/10/17) Subjective 12/01 on vent, with gtube and raymond, no bleeding, labs are noted 12/02 labs noted, remains on abx, dw Rn at bedside is on abx, hgb 8.9 12/03 roman Rn in am, with drainage blood from gtube site, and mouth,gi aware 12/04 on vent, hgb 8.2, no bleeding, k was given overnight 12/05 labs reviewed, on vent, no bleeding, gb 8.5, no hemolysis is seen 12/07 asymptomatic, a+o x1, no bleeding, meds reviewed, labs noted 12/08 nv, trach to vent, no bleeding, meds reviewed, no night sweats, hep sq 12/09 labs noted, no bleeding, meds reviewed, hgb 7.4, no hemolysis Objective Objective Current Medications Medications (Trade) Dose Ordered Sig/Penny Route PRN Reason Start Time Stop Time Status Last Admin Dose Admin Acetaminophen (Tylenol) 650 mg Q4H PRN GT Temp >100.5 11/29/19 04:30 12/29/19 04:29 12/06/19 09:14 Amantadine HCl (Symmetrel) 100 mg TWICE A DAY GT 12/07/19 18:00 01/06/20 17:59 12/09/19 17:38 Amlodipine Besylate (Norvasc) 5 mg BID GT 12/08/19 18:00 01/05/20 08:59 12/09/19 17:37 Ascorbic Acid (Vitamin C) 500 mg DAILY GT 11/29/19 09:00 12/29/19 08:59 12/09/19 08:43 Clonidine HCl (Catapres TTS-1) 1 patch ONCE A WEEK TDERMAL 12/03/19 09:00 03/02/20 08:59 12/03/19 09:10 Clotrimazole (Lotrimin) 1 applic THREE TIMES A DAY TOPIC 12/01/19 13:00 02/29/20 12:59 12/09/19 17:38 Epoetin Gelacio (Epoetin Gelacio-EPBX(NON ESRD)) 10,000 unit MON-WED-FRI SUBQ 11/29/19 21:00 02/27/20 20:59 12/09/19 20:29 Gentamicin Protocol (Gentamicin pharmacy to dose) 1 ea DAILY PRN MISC Per rx protocol 12/02/19 18:00 01/01/20 17:59 Heparin Sodium (Porcine) (Heparin 5000 units/ml) 5,000 units EVERY 12 HOURS SUBQ 11/29/19 09:00 01/13/20 08:59 12/08/19 21:11 Hydralazine HCl (Apresoline) 25 mg Q4H PRN ORAL bp over 160 syst 12/08/19 12:30 03/07/20 12:29 12/09/19 11:45 Lansoprazole (Prevacid) 30 mg BID GT 12/08/19 18:00 12/31/19 11:59 12/09/19 17:37 Metoclopramide HCl (Reglan) 10 mg Q6H IVP 12/04/19 10:00 01/03/20 09:59 12/10/19 03:04 Metoprolol Tartrate (Lopressor) 12.5 mg Q12HR ORAL 12/03/19 21:00 03/02/20 08:59 12/09/19 20:29 Polyethylene Glycol (Miralax) 17 gm BEDTIME GT 11/29/19 21:00 12/29/19 20:59 12/09/19 20:29 Vitamin B Complex/ Vit C/Folic Acid (Nephrovite) 1 tab DAILY GT 11/29/19 09:00 12/29/19 08:59 12/09/19 08:42 Zinc Sulfate (Zinc Sulfate) 220 mg DAILY GT 11/29/19 09:00 02/27/20 08:59 12/09/19 08:43 Last 24 Hour Vital Signs Date Time Temp Pulse Resp B/P (MAP) Pulse Ox O2 Delivery O2 Flow Rate FiO2 12/10/19 05:06 55 20 60 12/10/19 04:00 Mechanical Ventilator 12/10/19 04:00 64 12/10/19 04:00 60 12/10/19 04:00 98.1 62 20 154/68 (96) 96 12/10/19 03:00 65 20 60 12/10/19 01:17 66 21 60 12/10/19 00:00 Mechanical Ventilator 12/10/19 00:00 67 12/10/19 00:00 98.2 66 19 150/70 (96) 95 12/10/19 00:00 60 12/09/19 23:24 69 21 60 12/09/19 20:43 70 19 60 12/09/19 20:29 66 156/76 12/09/19 20:03 50 12/09/19 20:02 Mechanical Ventilator 12/09/19 20:02 65 12/09/19 20:00 98.2 66 20 156/72 (100) 97 12/09/19 19:00 82 21 50 12/09/19 17:37 70 150/83 12/09/19 17:05 70 22 50 12/09/19 16:00 50 12/09/19 16:00 73 12/09/19 16:00 Mechanical Ventilator 12/09/19 16:00 98.1 71 20 150/83 (105) 100 12/09/19 15:05 76 20 50 12/09/19 13:07 71 22 50 12/09/19 12:00 Mechanical Ventilator 12/09/19 12:00 97.9 73 20 165/69 (101) 100 12/09/19 12:00 50 12/09/19 12:00 73 12/09/19 11:45 165/69 12/09/19 11:10 72 21 50 12/09/19 09:16 65 20 50 12/09/19 08:43 69 157/79 12/09/19 08:42 65 157/79 12/09/19 08:00 64 12/09/19 08:00 50 12/09/19 08:00 98.1 69 20 157/79 (105) 100 10/26/20 08:00 Mechanical Ventilator 12/09/19 07:15 64 20 50 12/09/19 04:55 74 20 50 12/09/19 04:00 60 12/09/19 04:00 Mechanical Ventilator 12/09/19 04:00 69 12/09/19 04:00 98.4 71 20 158/70 (99) 96 12/09/19 03:12 72 20 50 12/09/19 00:44 76 22 50 12/09/19 00:01 164/71 12/09/19 00:00 98.1 73 20 164/71 (102) 97 12/09/19 00:00 72 12/09/19 00:00 60 12/09/19 00:00 Mechanical Ventilator 12/08/19 22:53 69 21 60 12/08/19 21:11 75 146/67 12/08/19 21:10 74 22 60 12/08/19 20:00 Mechanical Ventilator 12/08/19 20:00 60 12/08/19 20:00 97.9 72 20 146/67 (93) 97 12/08/19 20:00 77 12/08/19 18:57 75 23 60 12/08/19 17:38 66 152/73 12/08/19 17:01 66 20 60 12/08/19 16:00 Mechanical Ventilator 12/08/19 16:00 97.9 70 20 150/65 (93) 100 12/08/19 16:00 60 12/08/19 15:31 70 12/08/19 15:05 66 20 60 12/08/19 13:05 70 20 60 12/08/19 12:00 Mechanical Ventilator 12/08/19 12:00 60 12/08/19 12:00 98.2 71 20 158/74 (102) 100 12/08/19 11:51 70 12/08/19 11:05 66 21 60 12/08/19 09:05 66 22 60 12/08/19 08:38 71 169/81 12/08/19 08:37 71 169/81 12/08/19 08:00 Mechanical Ventilator 12/08/19 08:00 60 12/08/19 08:00 98.1 71 20 169/81 (110) 100 12/08/19 07:55 69 12/08/19 07:10 80 20 60 l Intake and Output 12/09/19 12/10/19 19:00 07:00 Intake Total 460 ml 530 ml Output Total 1100 ml 1400 ml Balance -640 ml -870 ml Intake Free Water 100 ml 50 ml Tube Feeding 360 ml 480 ml Output Urine Total 1100 ml 1400 ml # Bowel Movements 2 Labs Test 12/07/19 10:59 12/08/19 03:17 12/09/19 03:25 12/09/19 09:50 Arterial Blood pH 7.474 (7.350-7.450) Arterial Blood Partial Pressure CO2 37.2 mmHg (35.0-45.0) Arterial Blood Partial Pressure O2 74.5 mmHg (75.0-100.0) Arterial Blood HCO3 26.7 mmol/L (22.0-26.0) Arterial Blood Oxygen Saturation 94.8 % (95-100) Arterial Blood Base Excess 3.0 (-2-2) Rojas Test Positive White Blood Count 9.6 K/UL (4.8-10.8) 8.8 K/UL (4.8-10.8) Red Blood Count 3.13 M/UL (4.20-5.40) 2.71 M/UL (4.20-5.40) Hemoglobin 8.8 G/DL (12.0-16.0) 7.7 G/DL (12.0-16.0) Hematocrit 27.3 % (37.0-47.0) 23.6 % (37.0-47.0) Mean Corpuscular Volume 87 FL (80-99) 87 FL (80-99) Mean Corpuscular Hemoglobin 28.2 PG (27.0-31.0) 28.5 PG (27.0-31.0) Mean Corpuscular Hemoglobin Concent 32.3 G/DL (32.0-36.0) 32.8 G/DL (32.0-36.0) Red Cell Distribution Width 14.0 % (11.6-14.8) 13.7 % (11.6-14.8) Platelet Count 348 K/UL (150-450) 309 K/UL (150-450) Mean Platelet Volume 5.1 FL (6.5-10.1) 4.9 FL (6.5-10.1) Neutrophils (%) (Auto) 72.7 % (45.0-75.0) % (45.0-75.0) Lymphocytes (%) (Auto) 19.2 % (20.0-45.0) % (20.0-45.0) Monocytes (%) (Auto) 4.0 % (1.0-10.0) % (1.0-10.0) Eosinophils (%) (Auto) 3.8 % (0.0-3.0) % (0.0-3.0) Basophils (%) (Auto) 0.3 % (0.0-2.0) % (0.0-2.0) Sodium Level 134 MMOL/L (136-145) 136 MMOL/L (136-145) Potassium Level 3.3 MMOL/L (3.5-5.1) 3.4 MMOL/L (3.5-5.1) Chloride Level 96 MMOL/L (98-107) 96 MMOL/L (98-107) Carbon Dioxide Level 25 MMOL/L (21-32) 26 MMOL/L (21-32) Anion Gap 13 mmol/L (5-15) 14 mmol/L (5-15) Blood Urea Nitrogen 118 mg/dL (7-18) 114 mg/dL (7-18) Creatinine 3.6 MG/DL (0.55-1.30) 3.6 MG/DL (0.55-1.30) Estimat Glomerular Filtration Rate 13.6 mL/min (>60) 13.6 mL/min (>60) Glucose Level 98 MG/DL (74-106) 91 MG/DL (74-106) Uric Acid 7.1 MG/DL (2.6-7.2) 7.1 MG/DL (2.6-7.2) Calcium Level 7.6 MG/DL (8.5-10.1) 8.0 MG/DL (8.5-10.1) Phosphorus Level 4.5 MG/DL (2.5-4.9) 5.0 MG/DL (2.5-4.9) Magnesium Level 3.1 MG/DL (1.8-2.4) 3.0 MG/DL (1.8-2.4) Total Bilirubin 0.3 MG/DL (0.2-1.0) 0.4 MG/DL (0.2-1.0) Aspartate Amino Transf (AST/SGOT) 65 U/L (15-37) 56 U/L (15-37) Alanine Aminotransferase (ALT/SGPT) 28 U/L (12-78) 18 U/L (12-78) Alkaline Phosphatase 358 U/L (46-116) 367 U/L (46-116) Total Protein 6.7 G/DL (6.4-8.2) 5.7 G/DL (6.4-8.2) Albumin 2.2 G/DL (3.4-5.0) 2.0 G/DL (3.4-5.0) Globulin 4.5 g/dL 3.7 g/dL Albumin/Globulin Ratio 0.5 (1.0-2.7) 0.5 (1.0-2.7) Random Gentamicin Level 2.9 ug/mL 2.6 ug/mL C-Reactive Protein, Quantitative 7.4 mg/dL (0.00-0.90) Pro-B-Type Natriuretic Peptide > 00129 pg/mL (0-125) Prothrombin Time 12.9 SEC (9.30-11.50) Prothromb Time International Ratio 1.2 (0.9-1.1) Test 12/10/19 02:30 White Blood Count 9.0 K/UL (4.8-10.8) Red Blood Count 2.68 M/UL (4.20-5.40) Hemoglobin 7.4 G/DL (12.0-16.0) Hematocrit 23.0 % (37.0-47.0) Mean Corpuscular Volume 86 FL (80-99) Mean Corpuscular Hemoglobin 27.7 PG (27.0-31.0) Mean Corpuscular Hemoglobin Concent 32.3 G/DL (32.0-36.0) Red Cell Distribution Width 13.7 % (11.6-14.8) Platelet Count 288 K/UL (150-450) Mean Platelet Volume 5.3 FL (6.5-10.1) Neutrophils (%) (Auto) % (45.0-75.0) Lymphocytes (%) (Auto) % (20.0-45.0) Monocytes (%) (Auto) % (1.0-10.0) Eosinophils (%) (Auto) % (0.0-3.0) Basophils (%) (Auto) % (0.0-2.0) Sodium Level 136 MMOL/L (136-145) Potassium Level 3.6 MMOL/L (3.5-5.1) Chloride Level 98 MMOL/L (98-107) Carbon Dioxide Level 27 MMOL/L (21-32) Anion Gap 12 mmol/L (5-15) Blood Urea Nitrogen 110 mg/dL (7-18) Creatinine 3.5 MG/DL (0.55-1.30) Estimat Glomerular Filtration Rate 14.0 mL/min (>60) Glucose Level 90 MG/DL (74-106) Uric Acid 6.9 MG/DL (2.6-7.2) Calcium Level 8.2 MG/DL (8.5-10.1) Phosphorus Level 4.8 MG/DL (2.5-4.9) Magnesium Level 2.9 MG/DL (1.8-2.4) Total Bilirubin 0.3 MG/DL (0.2-1.0) Aspartate Amino Transf (AST/SGOT) 44 U/L (15-37) Alanine Aminotransferase (ALT/SGPT) 17 U/L (12-78) Alkaline Phosphatase 387 U/L (46-116) Total Protein 5.5 G/DL (6.4-8.2) Albumin 2.0 G/DL (3.4-5.0) Globulin 3.5 g/dL Albumin/Globulin Ratio 0.6 (1.0-2.7) Lipase 646 U/L (73-393) Height (Feet): 5 Height (Inches): 4.00 Weight (Pounds): 150 Objective Physical Exam: Vitals: reviewed General: NAD HEENT: nc, at Neck: supple ++tracn/vent Chest: clear breath sounds bilaterally Cardiovascular: RRR, no s3, s4 Abdomen: soft, nontender, nd +gtube Extremities: no cce, normal range of motion Neuro: alert ++Evan Molina MD Dec 10, 2019 06:44
[2019-12-10 08:00] VITALS: BP 148/69
--- NOTE | 2019-12-10 08:13 | General Progress Note ---
Subjective ROS Limited/Unobtainable: No Allergies: Coded Allergies: No Known Allergies (Unverified , 10/10/17) Objective Last 24 Hour Vital Signs Date Time Temp Pulse Resp B/P (MAP) Pulse Ox O2 Delivery O2 Flow Rate FiO2 12/10/19 07:04 58 20 50 12/10/19 05:06 55 20 60 12/10/19 04:00 Mechanical Ventilator 12/10/19 04:00 64 12/10/19 04:00 60 12/10/19 04:00 98.1 62 20 154/68 (96) 96 12/10/19 03:00 65 20 60 12/10/19 01:17 66 21 60 12/10/19 00:00 Mechanical Ventilator 12/10/19 00:00 67 12/10/19 00:00 98.2 66 19 150/70 (96) 95 12/10/19 00:00 60 12/09/19 23:24 69 21 60 12/09/19 20:43 70 19 60 12/09/19 20:29 66 156/76 12/09/19 20:03 50 12/09/19 20:02 Mechanical Ventilator 12/09/19 20:02 65 12/09/19 20:00 98.2 66 20 156/72 (100) 97 12/09/19 19:00 82 21 50 12/09/19 17:37 70 150/83 12/09/19 17:05 70 22 50 12/09/19 16:00 50 12/09/19 16:00 73 12/09/19 16:00 Mechanical Ventilator 12/09/19 16:00 98.1 71 20 150/83 (105) 100 12/09/19 15:05 76 20 50 12/09/19 13:07 71 22 50 12/09/19 12:00 Mechanical Ventilator 12/09/19 12:00 97.9 73 20 165/69 (101) 100 12/09/19 12:00 50 12/09/19 12:00 73 12/09/19 11:45 165/69 12/09/19 11:10 72 21 50 12/09/19 09:16 65 20 50 12/09/19 08:43 69 157/79 12/09/19 08:42 65 157/79 Intake and Output 12/09/19 12/10/19 19:00 07:00 Intake Total 460 ml 530 ml Output Total 1100 ml 1400 ml Balance -640 ml -870 ml Intake Free Water 100 ml 50 ml Tube Feeding 360 ml 480 ml Output Urine Total 1100 ml 1400 ml # Bowel Movements 2 Laboratory Tests 12/09/19 09:50: Prothrombin Time 12.9H, Prothromb Time International Ratio 1.2H 12/10/19 02:30: White Blood Count 9.0, Red Blood Count 2.68L, Hemoglobin 7.4L, Hematocrit 23.0L, Mean Corpuscular Volume 86, Mean Corpuscular Hemoglobin 27.7, Mean Corpuscular Hemoglobin Concent 32.3, Red Cell Distribution Width 13.7, Platelet Count 288, Mean Platelet Volume 5.3L, Neutrophils (%) (Auto) , Lymphocytes (%) (Auto) , Monocytes (%) (Auto) , Eosinophils (%) (Auto) , Basophils (%) (Auto) , Sodium Level 136, Potassium Level 3.6, Chloride Level 98, Carbon Dioxide Level 27, Anion Gap 12, Blood Urea Nitrogen 110H, Creatinine 3.5H, Estimat Glomerular Filtration Rate 14.0, Glucose Level 90, Uric Acid 6.9, Calcium Level 8.2L, Phosphorus Level 4.8, Magnesium Level 2.9H, Total Bilirubin 0.3, Aspartate Amino Transf (AST/SGOT) 44H, Alanine Aminotransferase (ALT/SGPT) 17, Alkaline Phosphatase 387H, Total Protein 5.5L, Albumin 2.0L, Globulin 3.5, Albumin/Globulin Ratio 0.6L, Lipase 646H Height (Feet): 5 Height (Inches): 4.00 Weight (Pounds): 150 General Appearance: confused EENT: normal ENT inspection Neck: supple Cardiovascular: normal rate Respiratory/Chest: decreased breath sounds Abdomen: hypoactive bowel sounds Extremities: non-tender Assessment/Plan Assessment/Plan: 1. Coronary artery disease with history of CABG. 2. Respiratory failure with history of tracheotomy. 3. Prior history of bacteremia. 4. History of prior pacemaker, status post explantation due to endovascular infection. 5. Chronic kidney disease. 6. Anemia of chronic kidney disease. 7. History of substance abuse. 8. Hyperlipidemia. 9. dysphagia with GT 10. Vitamin D deficiency. 11. History of aortic dissection and repair in 2018. 12. Paroxysmal atrial fibrillation. 13. Gastroesophageal reflux disease. 14. prei Gt cellulitis 15. pancreatitis repeat labs changed the GT to 22 Fr at the bedside >>> improved leakage on reglan s/p blood transfusion fu stool ob>>>positive on 12/03>>> will order ppi diogenes GT wound care Inder Mccauley MD Dec 10, 2019 08:13
[2019-12-10] MEDS: Metoprolol Tartrate 12.5mg TAB ORAL SCH ×2 (09:00→21:11)
[2019-12-10] MEDS: Amantadine 100mg cap GT SCH ×2 (09:41→18:30)
[2019-12-10] MEDS: Nephrovite tab (Rena-Vite) GT SCH (09:41)
[2019-12-10] MEDS: Zinc Sulfate 220mg GT SCH (09:41)
[2019-12-10] MEDS: Ascorbic Acid 500mg tab GT SCH (09:41)
[2019-12-10] MEDS: Heparin 5000 units/ml inj SUBQ SCH ×2 (09:45→21:00)
--- NOTE | 2019-12-10 09:56 | Pulmonology Progress Note ---
Subjective ROS Limited/Unobtainable: No Interval Events: None new Constitutional: Reports: no symptoms HEENT: Repors: no symptoms Respiratory: Reports: no symptoms Cardiovascular: Reports: no symptoms Gastrointestinal/Abdominal: Reports: no symptoms Psychiatric: Reports: no symptoms Allergies: Coded Allergies: No Known Allergies (Unverified , 10/10/17) All Systems: reviewed and negative except above Objective Last 24 Hour Vital Signs Date Time Temp Pulse Resp B/P (MAP) Pulse Ox O2 Delivery O2 Flow Rate FiO2 12/10/19 09:43 148/69 12/10/19 09:42 55 148/69 12/10/19 09:21 55 20 50 12/10/19 09:00 55 148/69 12/10/19 08:00 Mechanical Ventilator 12/10/19 08:00 50 12/10/19 08:00 98.4 56 20 148/69 (95) 95 12/10/19 07:33 64 12/10/19 07:04 58 20 50 12/10/19 05:06 55 20 60 12/10/19 04:00 Mechanical Ventilator 12/10/19 04:00 64 12/10/19 04:00 60 12/10/19 04:00 98.1 62 20 154/68 (96) 96 12/10/19 03:00 65 20 60 12/10/19 01:17 66 21 60 12/10/19 00:00 Mechanical Ventilator 12/10/19 00:00 67 12/10/19 00:00 98.2 66 19 150/70 (96) 95 12/10/19 00:00 60 12/09/19 23:24 69 21 60 12/09/19 20:43 70 19 60 12/09/19 20:29 66 156/76 12/09/19 20:03 50 12/09/19 20:02 Mechanical Ventilator 12/09/19 20:02 65 12/09/19 20:00 98.2 66 20 156/72 (100) 97 12/09/19 19:00 82 21 50 12/09/19 17:37 70 150/83 12/09/19 17:05 70 22 50 12/09/19 16:00 50 12/09/19 16:00 73 12/09/19 16:00 Mechanical Ventilator 12/09/19 16:00 98.1 71 20 150/83 (105) 100 12/09/19 15:05 76 20 50 12/09/19 13:07 71 22 50 12/09/19 12:00 Mechanical Ventilator 12/09/19 12:00 97.9 73 20 165/69 (101) 100 12/09/19 12:00 50 12/09/19 12:00 73 12/09/19 11:45 165/69 12/09/19 11:10 72 21 50 Intake and Output 12/09/19 12/10/19 19:00 07:00 Intake Total 460 ml 530 ml Output Total 1100 ml 1400 ml Balance -640 ml -870 ml Intake Free Water 100 ml 50 ml Tube Feeding 360 ml 480 ml Output Urine Total 1100 ml 1400 ml # Bowel Movements 2 General Appearance: no acute distress HEENT: normocephalic, status post trach Respiratory: chest wall non-tender, lungs clear Cardiovascular: normal peripheral pulses Abdomen: normal bowel sounds Laboratory Tests 12/10/19 02:30: White Blood Count 9.0, Red Blood Count 2.68L, Hemoglobin 7.4L, Hematocrit 23.0L, Mean Corpuscular Volume 86, Mean Corpuscular Hemoglobin 27.7, Mean Corpuscular Hemoglobin Concent 32.3, Red Cell Distribution Width 13.7, Platelet Count 288, Mean Platelet Volume 5.3L, Neutrophils (%) (Auto) , Lymphocytes (%) (Auto) , Monocytes (%) (Auto) , Eosinophils (%) (Auto) , Basophils (%) (Auto) , Sodium Level 136, Potassium Level 3.6, Chloride Level 98, Carbon Dioxide Level 27, Anion Gap 12, Blood Urea Nitrogen 110H, Creatinine 3.5H, Estimat Glomerular Filtration Rate 14.0, Glucose Level 90, Uric Acid 6.9, Calcium Level 8.2L, Phosphorus Level 4.8, Magnesium Level 2.9H, Total Bilirubin 0.3, Aspartate Amino Transf (AST/SGOT) 44H, Alanine Aminotransferase (ALT/SGPT) 17, Alkaline Phosphatase 387H, Total Protein 5.5L, Albumin 2.0L, Globulin 3.5, Albumin/Globulin Ratio 0.6L, Lipase 646H Current Medications Medications (Trade) Dose Ordered Sig/Penny Route PRN Reason Start Time Stop Time Status Last Admin Dose Admin Acetaminophen (Tylenol) 650 mg Q4H PRN GT Temp >100.5 11/29/19 04:30 12/29/19 04:29 12/06/19 09:14 Amantadine HCl (Symmetrel) 100 mg TWICE A DAY GT 12/07/19 18:00 01/06/20 17:59 12/10/19 09:41 Amlodipine Besylate (Norvasc) 5 mg BID GT 12/08/19 18:00 01/05/20 08:59 12/10/19 09:42 Ascorbic Acid (Vitamin C) 500 mg DAILY GT 11/29/19 09:00 12/29/19 08:59 12/10/19 09:41 Clonidine HCl (Catapres TTS-1) 1 patch ONCE A WEEK TDERMAL 12/03/19 09:00 03/02/20 08:59 12/10/19 09:43 Clotrimazole (Lotrimin) 1 applic THREE TIMES A DAY TOPIC 12/01/19 13:00 02/29/20 12:59 12/10/19 09:42 Epoetin Gelacio (Epoetin Gelacio-EPBX(NON ESRD)) 10,000 unit MON-MON-MON SUBQ 11/29/19 21:00 02/27/20 20:59 12/09/19 20:29 Gentamicin Protocol (Gentamicin pharmacy to dose) 1 ea DAILY PRN MISC Per rx protocol 12/02/19 18:00 01/01/20 17:59 Heparin Sodium (Porcine) (Heparin 5000 units/ml) 5,000 units EVERY 12 HOURS SUBQ 11/29/19 09:00 01/13/20 08:59 12/10/19 09:45 Hydralazine HCl (Apresoline) 25 mg Q4H PRN ORAL bp over 160 syst 12/08/19 12:30 03/07/20 12:29 12/09/19 11:45 Lansoprazole (Prevacid) 30 mg BID GT 12/08/19 18:00 12/31/19 11:59 12/10/19 09:41 Metoclopramide HCl (Reglan) 10 mg Q6H IVP 12/04/19 10:00 01/03/20 09:59 12/10/19 09:41 Metoprolol Tartrate (Lopressor) 12.5 mg Q12HR ORAL 12/03/19 21:00 03/02/20 08:59 12/09/19 20:29 Polyethylene Glycol (Miralax) 17 gm BEDTIME GT 11/29/19 21:00 12/29/19 20:59 12/09/19 20:29 Vitamin B Complex/ Vit C/Folic Acid (Nephrovite) 1 tab DAILY GT 11/29/19 09:00 12/29/19 08:59 12/10/19 09:41 Zinc Sulfate (Zinc Sulfate) 220 mg DAILY GT 11/29/19 09:00 02/27/20 08:59 12/10/19 09:41 Assessment/Plan Assessment/Plan Assessment: COVID19 neg Sepsis UTI Pleural effusion (small) PNA Low grade fever Leukocytosis,resolved Acute on chronic hypoxic resp failure JAVIER on CKD- hx of Recent MDR PnA, sp rx H/o PPM site (pocket) infection and pocket abscess 2ry to S. epi-11/2018, sp >6weeks IV vancomycin CAD s/p CABG GERD/gastritis Afib HTN Dysphagia sp GT Aortic dissection s/p repair 2017, S/p PPM Parkinson's Disease Schizophrenia Anxiety COPD Chronic resp failure s/p trach Hx of tracheal bleeding [place] resident ([facility]) Plan: -Continue empiric abx -Monitor CBC/CMP, temperatures -PEG/trach care -aspiration precautions -COVID19 isolation and testing; -s/p thoracentesis- sent fluid analysis and culture - FiO2 now 40%; Dc planning May not need HD Elijah Stepehn MD Dec 10, 2019 09:56
--- NOTE | 2019-12-10 10:17 | Nephrology Progress Note ---
Assessment/Plan Problem List: (1) JAVIER (acute kidney injury) (2) Renal failure (ARF), acute on chronic (3) Feeding by G-tube (4) Tracheostomy in place (5) Electrolyte imbalance (6) Anemia (7) Respiratory failure, acute and chronic (8) Elevated lipase Assessment Patient is presented with sepsis and pneumonia and UTI, hypoxia Patient has acute renal failure, possible underlying chronic kidney failure Severe anemia Electrolyte imbalances: Hyponatremia, hypo-kalemia Chronic respiratory failure, COPD exacerbation Has sacral decubitus ulcer stage IV PEG Plan December 09: Renal parameters reviewed. Unchanged. Clinically stable. I favor not to resort to dialysis treatment considering patient's overall condition since she is clinically improving. Upon discharge she will suggest to continue to observe renal parameters. December 08: Renal parameters unchanged. Urine output maintained. Patient slightly more alert and less edematous. Continue per current management. Potassium supplement given. Serum lipase ordered in a.m. December 07: Renal parameters essentially unchanged. Decent urine output. Patient remains edematous. Electrolyte imbalances noted. Discussed with RN. As needed blood pressure medication ordered. Continue current management. December 06: Renal parameters unchanged. Slightly lower serum sodium and potassium. IV fluid discontinued. Potassium supplement given. Creatinine clearance remains around 14/15 mL/min. Patient edematous. May require a course of dialysis treatment and ultrafiltration. Will discuss with Dr. Dong. December 05: Renal parameters unchanged. Discussed with ERASMO Echevarria. Electrolyte abnormalities addressed. Continue to monitor renal parameters. Will discuss with PMD possible need for dialysis trial. Serum lipase decreasing. December 04: Patient started on IV fluid with sodium bicarb by Dr. Dong. So at this time we will hold the diuretics. Will follow-up renal parameters and electrolytes. Continue rest of management. Continue monitor lipase level December 03: No chemistry panel done today. Appears clinically stable. Will order renal parameters and lipase panel for tomorrow. Continue per consultants. Patient remains full code. December 02: Labs reviewed. Serum lipase decreasing. On 20 cc an hour Nepro via GT tube. Renal parameters unchanged. Urine output well maintained. Continue per consultants. White blood cells 17,000, hemoglobin 8.9. December 01: Lab reviewed. Hemoglobin higher. Serum creatinine 3.4. Creatinine clearance calculated . Serum lipase lowering. Continue per current management. November 30: Patient transfused. Hemoglobin higher. Serum sodium lower. Renal parameters unchanged. Trial of 3% saline. Continue monitor renal parameters. May require dialysis treatment depending on the how her condition evolves. Previously Consider transfusion Urine studies Adjust blood pressure medication Albumin bolus Norman catheter, intake and output Monitor renal parameters Avoid nephrotoxic's Antibiotics Per orders Subjective ROS Limited/Unobtainable: Yes Objective Objective Last 24 Hour Vital Signs Date Time Temp Pulse Resp B/P (MAP) Pulse Ox O2 Delivery O2 Flow Rate FiO2 12/10/19 09:43 148/69 12/10/19 09:42 55 148/69 12/10/19 09:21 55 20 50 12/10/19 09:00 55 148/69 12/10/19 08:00 Mechanical Ventilator 12/10/19 08:00 50 12/10/19 08:00 98.4 56 20 148/69 (95) 95 12/10/19 07:33 64 12/10/19 07:04 58 20 50 12/10/19 05:06 55 20 60 12/10/19 04:00 Mechanical Ventilator 12/10/19 04:00 64 12/10/19 04:00 60 12/10/19 04:00 98.1 62 20 154/68 (96) 96 12/10/19 03:00 65 20 60 12/10/19 01:17 66 21 60 12/10/19 00:00 Mechanical Ventilator 12/10/19 00:00 67 12/10/19 00:00 98.2 66 19 150/70 (96) 95 12/10/19 00:00 60 12/09/19 23:24 69 21 60 12/09/19 20:43 70 19 60 12/09/19 20:29 66 156/76 12/09/19 20:03 50 12/09/19 20:02 Mechanical Ventilator 12/09/19 20:02 65 12/09/19 20:00 98.2 66 20 156/72 (100) 97 12/09/19 19:00 82 21 50 12/09/19 17:37 70 150/83 12/09/19 17:05 70 22 50 12/09/19 16:00 50 12/09/19 16:00 73 12/09/19 16:00 Mechanical Ventilator 12/09/19 16:00 98.1 71 20 150/83 (105) 100 12/09/19 15:05 76 20 50 12/09/19 13:07 71 22 50 12/09/19 12:00 Mechanical Ventilator 12/09/19 12:00 97.9 73 20 165/69 (101) 100 12/09/19 12:00 50 12/09/19 12:00 73 12/09/19 11:45 165/69 12/09/19 11:10 72 21 50 Intake and Output 12/09/19 12/10/19 19:00 07:00 Intake Total 460 ml 530 ml Output Total 1100 ml 1400 ml Balance -640 ml -870 ml Intake Free Water 100 ml 50 ml Tube Feeding 360 ml 480 ml Output Urine Total 1100 ml 1400 ml # Bowel Movements 2 Laboratory Tests 12/10/19 02:30: White Blood Count 9.0, Red Blood Count 2.68L, Hemoglobin 7.4L, Hematocrit 23.0L, Mean Corpuscular Volume 86, Mean Corpuscular Hemoglobin 27.7, Mean Corpuscular Hemoglobin Concent 32.3, Red Cell Distribution Width 13.7, Platelet Count 288, Mean Platelet Volume 5.3L, Neutrophils (%) (Auto) , Lymphocytes (%) (Auto) , Monocytes (%) (Auto) , Eosinophils (%) (Auto) , Basophils (%) (Auto) , Sodium Level 136, Potassium Level 3.6, Chloride Level 98, Carbon Dioxide Level 27, Anion Gap 12, Blood Urea Nitrogen 110H, Creatinine 3.5H, Estimat Glomerular Filtration Rate 14.0, Glucose Level 90, Uric Acid 6.9, Calcium Level 8.2L, Phosphorus Level 4.8, Magnesium Level 2.9H, Total Bilirubin 0.3, Aspartate Amino Transf (AST/SGOT) 44H, Alanine Aminotransferase (ALT/SGPT) 17, Alkaline Phosphatase 387H, Total Protein 5.5L, Albumin 2.0L, Globulin 3.5, Albumin/Globulin Ratio 0.6L, Lipase 646H Height (Feet): 5 Height (Inches): 4.00 Weight (Pounds): 150 General Appearance: no apparent distress EENT: other - Trached and vent Cardiovascular: normal rate Respiratory/Chest: decreased breath sounds Abdomen: soft, distended Objective No change Johnny Houston MD Dec 10, 2019 10:17
[2019-12-10 12:00] VITALS: BP 150/67
--- NOTE | 2019-12-10 13:43 | Surgery Progress Note ---
Surgery Progress Note Subjective Additional Comments no acute events labs noted exam stable comfortable appearing Objective Last 24 Hour Vital Signs Date Time Temp Pulse Resp B/P (MAP) Pulse Ox O2 Delivery O2 Flow Rate FiO2 12/10/19 12:00 Mechanical Ventilator 12/10/19 12:00 50 12/10/19 12:00 98.2 59 20 150/67 (94) 99 12/10/19 11:49 58 20 50 12/10/19 11:37 55 12/10/19 09:43 148/69 12/10/19 09:42 55 148/69 12/10/19 09:21 55 20 50 12/10/19 09:00 55 148/69 12/10/19 08:00 Mechanical Ventilator 12/10/19 08:00 50 12/10/19 08:00 98.4 56 20 148/69 (95) 95 12/10/19 07:33 64 12/10/19 07:04 58 20 50 12/10/19 05:06 55 20 60 12/10/19 04:00 Mechanical Ventilator 12/10/19 04:00 64 12/10/19 04:00 60 12/10/19 04:00 98.1 62 20 154/68 (96) 96 12/10/19 03:00 65 20 60 12/10/19 01:17 66 21 60 12/10/19 00:00 Mechanical Ventilator 12/10/19 00:00 67 12/10/19 00:00 98.2 66 19 150/70 (96) 95 12/10/19 00:00 60 12/09/19 23:24 69 21 60 12/09/19 20:43 70 19 60 12/09/19 20:29 66 156/76 12/09/19 20:03 50 12/09/19 20:02 Mechanical Ventilator 12/09/19 20:02 65 12/09/19 20:00 98.2 66 20 156/72 (100) 97 12/09/19 19:00 82 21 50 12/09/19 17:37 70 150/83 12/09/19 17:05 70 22 50 12/09/19 16:00 50 12/09/19 16:00 73 12/09/19 16:00 Mechanical Ventilator 12/09/19 16:00 98.1 71 20 150/83 (105) 100 12/09/19 15:05 76 20 50 I&O Intake and Output 12/09/19 12/10/19 19:00 07:00 Intake Total 460 ml 530 ml Output Total 1100 ml 1400 ml Balance -640 ml -870 ml Intake Free Water 100 ml 50 ml Tube Feeding 360 ml 480 ml Output Urine Total 1100 ml 1400 ml # Bowel Movements 2 Dressing: saturated Cardiovascular: RSR Respiratory: decreased breath sounds Abdomen: soft, non-tender, present bowel sounds Extremities: edema, no tenderness, no cyanosis Laboratory Tests Test 12/10/19 02:30 White Blood Count 9.0 K/UL (4.8-10.8) Red Blood Count 2.68 M/UL (4.20-5.40) L Hemoglobin 7.4 G/DL (12.0-16.0) L Hematocrit 23.0 % (37.0-47.0) L Mean Corpuscular Volume 86 FL (80-99) Mean Corpuscular Hemoglobin 27.7 PG (27.0-31.0) Mean Corpuscular Hemoglobin Concent 32.3 G/DL (32.0-36.0) Red Cell Distribution Width 13.7 % (11.6-14.8) Platelet Count 288 K/UL (150-450) Mean Platelet Volume 5.3 FL (6.5-10.1) L Neutrophils (%) (Auto) % (45.0-75.0) Lymphocytes (%) (Auto) % (20.0-45.0) Monocytes (%) (Auto) % (1.0-10.0) Eosinophils (%) (Auto) % (0.0-3.0) Basophils (%) (Auto) % (0.0-2.0) Sodium Level 136 MMOL/L (136-145) Potassium Level 3.6 MMOL/L (3.5-5.1) Chloride Level 98 MMOL/L (98-107) Carbon Dioxide Level 27 MMOL/L (21-32) Anion Gap 12 mmol/L (5-15) Blood Urea Nitrogen 110 mg/dL (7-18) H Creatinine 3.5 MG/DL (0.55-1.30) H Estimat Glomerular Filtration Rate 14.0 mL/min (>60) Glucose Level 90 MG/DL (74-106) Uric Acid 6.9 MG/DL (2.6-7.2) Calcium Level 8.2 MG/DL (8.5-10.1) L Phosphorus Level 4.8 MG/DL (2.5-4.9) Magnesium Level 2.9 MG/DL (1.8-2.4) H Total Bilirubin 0.3 MG/DL (0.2-1.0) Aspartate Amino Transf (AST/SGOT) 44 U/L (15-37) H Alanine Aminotransferase (ALT/SGPT) 17 U/L (12-78) Alkaline Phosphatase 387 U/L (46-116) H Total Protein 5.5 G/DL (6.4-8.2) L Albumin 2.0 G/DL (3.4-5.0) L Globulin 3.5 g/dL Albumin/Globulin Ratio 0.6 (1.0-2.7) L Lipase 646 U/L (73-393) H Plan Problems: (1) Dehydration (2) Acidosis (3) Anemia (4) Depression (5) Pancreatitis Assessment & Plan: 49F leukocytosis, elevated lip, lft's noted septic. work up ongoing npo iv fluids iv abx imaging ordered lipase worsening npo pending CT panc lip / jeanne improved diet as tolerated improving DAILY ESTIMATED NEEDS: Needs based on Critical care, wound, 56.8kg 28-33 kcals/kg [id number] total kcals 1.25-2 g protein/kg 71-114 g total protein Fluid per MD NUTRITION DIAGNOSIS: * Swallowing difficulty R/T dysphagia, respiratory status as evidenced by vent dep via trach, GT Dep. * Increase kcal and pro needs r/t wound healing and wasting as evidenced by stage 4 sacral wound. CURRENT TF:Nepro @ 40ml/hr x 20 hrs ENTERAL NUTRITION RECOMMENDATIONS: Nepro @ 45ml/hr x 20 hrs to provide 900ml, 1620kcal, 73g prot, 654ml free water * Increase TF to goal of 45ml/hr x20 hrs to better meet est needs * Water flush per MD * HOB over 30 degrees ADDITIONAL RECOMMENDATIONS: * Per SNF: HT=63", QX=[id number] -> rec calibrated bedscale wt (Bed reads 79.4kg) * Rec TF increase as above to better meet est needs * F/up w/ H&P * WC-> continue Vit C, ZnSO4, Nephrovite Add FRANKLIN in 4oz BID for wound care Lung bases: See below. Pleural space: Bilateral moderate low-attenuation, partially loculated pleural effusions with extensive passive atelectasis; correlate to exclude superimposed aspiration or pneumonia. Liver: Ill-defined right hepatic lobe. 2.9 cm hypodensity not well evaluated on this study. Gallbladder and bile ducts: Unremarkable. No calcified stones. No ductal dilation. Pancreas: Unremarkable. No ductal dilation. Spleen: Unremarkable. No splenomegaly. Adrenals: Unremarkable. No mass. Kidneys and ureters: Left nephroureteral stent in the decompressed left, atrophic renal collecting system. No evident urolithiasis. No hydronephrosis. Stomach and bowel: Unremarkable. No obstruction. No mucosal thickening. Intraperitoneal space: Moderate nonloculated ascites. No free air. Bones/joints: Potentially chronic appearing right intertrochanteric hip fracture. Possible sacral decubitus ulcer, recommend direct visualization. No dislocation. Soft tissues: Severe anasarca. Incompletely evaluated chronic aortic dissection not well seen on this study due to lack of IV contrast and severe anasarca. Vasculature: Descending thoracic aortic ectasia 4 cm diameter above the hiatus. No abdominal aortic aneurysm. Lymph nodes: Unremarkable. No enlarged lymph nodes. Tubes, lines and devices: Percutaneous gastrostomy tube. Norman catheter in decompressed urinary bladder. IMPRESSION: 1. Study substantially limited due to lack of IV contrast and severe anasarca and moderate nonloculated ascites. 2. Left nephroureteral stent in the decompressed left, atrophic renal collecting system. 3. No evident urolithiasis. 4. Incompletely evaluated chronic aortic dissection not well seen on this study due to lack of IV contrast and severe anasarca. 5. Bilateral moderate low-attenuation, partially loculated pleural effusions with extensive passive atelectasis; correlate to exclude superimposed aspiration or pneumonia. 6. Percutaneous gastrostomy tube. 7. Norman catheter in decompressed urinary bladder. 8. Likely chronic appearing right intertrochanteric hip fracture. 9. Possible sacral decubitus ulcer, recommend direct visualization. There is no acute intracranial hemorrhage, mass effect or cortical edema. There is no shift of the midline structures. The ventricles, cisterns and sulci are within normal limits for age. Minimal periventricular hypoattenuation is seen, a nonspecific finding. Extensive paranasal sinus disease with retention cyst partially visualized within the right maxillary sinus. Soft tissue prominence the posterior aspect of the turbinates also noted in the nasal cavity. This is not evaluated adequately or completely on this study but similar findings noted previously. IMPRESSION: No evidence of acute intracranial hemorrhage, mass effect or cortical edema. Extensive paranasal sinus disease. (6) Pleural effusion (7) Renal failure (8) Respiratory failure (9) Schizophrenia (10) Hypoxia (11) Sepsis (12) UTI (urinary tract infection) (13) Pneumonia (14) ARF (acute renal failure) (15) NSTEMI (non-ST elevated myocardial infarction) (16) Tracheostomy in place (17) Feeding by G-tube (18) JAVIER (acute kidney injury) (19) Acute encephalopathy (20) Sacral decubitus ulcer, stage IV Assessment & Plan: Pt presented on admission with Full thickness stage 4 Sacral Pressure injury which extends into R gluteal cheek. Base of wound is granular with bone exposure at base of sacrococcygeal. Pt presented on admission with tracheostomy, GT, Full Thickness Pressure Injury Sacrococcygeal.Base of wound is 40% soft necrosis, 60% noni with undermined borders(L)5.8cm x (W)5.5cm x (D)1.5cm, undermining clockwise 10-1 by 2.7cm @12o'clock.(+) Epibole along edges with scattered slough. Small area that is purple and indurated noted clockwise @7-8o'clock along borders.Small amt serous exudate noted.Mild odor noted. hyperpigmentation periwound. At L ischium are two areas of dry pink epithelial with surrounding hyperpigmentation. Both heels are boggy with [id number] erythema. Tx.Plan: Cleanse sacral wound with Saline. Loosely pack with Hydrogel impregnated kerlix. Apply Moisture Barrier Paste periwound. Cover with Optifoam drsg Daily and prn. Apply Cavilon Skin Barrier to both heels and malleoli. Cover eachsite with Optifoam drsgs. Change every 7 days and prn. Reposition at least every 2hours or as tolerated. Off-load heels with pillow. APM/Maxwell Mattress overlay. (21) Chronic respiratory failure (22) Hypokalemia (23) Ascites (24) Bacteremia (25) Hypernatremia (26) Proteinuria (27) Electrolyte imbalance (28) Pacemaker (29) ACS (acute coronary syndrome) (30) Aortic dissection, thoracic (31) Respiratory failure, acute and chronic (32) JAVIER (acute kidney injury) (33) Abrasion of lip, initial encounter (34) COPD with exacerbation (35) Elevated alkaline phosphatase level (36) Renal failure (ARF), acute on chronic (37) HCAP (healthcare-associated pneumonia) (38) GT Lane Murphy Dec 10, 2019 13:42
--- NOTE | 2019-12-10 13:51 | Infectious Diseases Prog Note ---
Assessment/Plan Assessment: COVID19 neg x2 (11/27 & rapid COVID PCR neg) Sepsis UTI -11/27 u/a wbc 30-40, nit neg, leuk +3; ucx ESBL P. mirablis, ESBL M. morganii Pl effusion, transudate - 11/28 Sp [place]aco (w: 169, PMN: 2%, L: 49% , LDH: 57, prot 2.5); cx Neg PNA -12/07 CXR: Persistent moderate left pleural effusion with associated atelectasis and/or consolidation. Interval resolution of right basilar opac ities. -12/04 CXR Stable moderate left pleural effusion with associated airspace consolidation. Increasing right basilar airspace opacity which could represent developing consolidation versus worsening atelectasis. -11/28 CXR: Resolved right pleural effusion, status post thoracentesis. No radiographically evident complication Sp cx ESBL P. mirablis (S Meropenem, Zosyn), MDR PsA (S Gentamycin) Influenza ag neg -11/27 CXR: Increasing hazy right lung diffuse opacity. Suspect at least in part due to overlying soft tissue, but developing infiltrate also possible. Persistent and slightly increased left retrocardiac consolidation and slightly increased left pleural effusion -11/27 Bcx NTD -legionella ag urine, M. IgM neg Fever , SP Leukocytosis, SP -12/02 CT abd/p wo: Study substantially limited due to lack of IV contrast and severe anasarca and moderate nonloculated ascites. Left nephroureteral stent in the decompressed left, atrophic renal collecting system. No evident urolithiasis. Incompletely evaluated chronic aortic dissection not well seen on this study due to lack of IV contrast and severe anasarca. Bilateral moderate low-attenuation, partially loculated pleural effusions with extensive passive atelectasis; correlate to exclude superimposed aspiration or pneumonia.Percutaneous gastrostomy tube. Norman catheter in decompressed urinary bladder. Likely chronic appearing right intertrochanteric hip fracture. Possible sacral decubitus ulcer, recommend direct visualization. Acute on chronic hypoxic resp failure JAVIER on CKD; improving- on previous admission Sep-Oct 2019 required HD for short period hx of Recent MDR PnA, sp rx 10/15/19 sp cx ESBL P. mirabilis, MDR P.a. ( S only to Gent) 09/22 Resp cx + MDR PsA (S-gent; I-colistin; R-levofloxacin, Zosyn, angelo) 09/16/19 Sp cx ESBL P. mirablis hx of recent UTI 09/15/19 u/a wbc tnct, nit neg, leuk +3; ucx >100k MDR P. stuarti (S Ceftriaxone, Meropenem) 10/07 u/a wbc tnct, nit neg, leuk ; ucx >100k VRE 10/15/19 u/a wbc tnct; ucx >100k ESBL P. stuarti (S ertapenem, aztreon am) H/o PPM site (pocket) infection and pocket abscess 2ry to S. epi-11/2018, sp >6weeks IV vancomycin 11/27 SP ABBIE: no evidence for vegetation on any of the valves 11/26/18 SP PPM removal: OR findings:The fibrous capsule enclosing the generator was then opened and there was a [id number] amount of yellowish fluid drainage. The generator was then removed.Atrial and ventricular leads were detached. The necrotic tissue of the pocket was then removed and the pocket was flushed with an antibiotic solution. Capsule, wound tissue and lead tip cx: Neg 2d echo: no vegetation seen US chest: 4.6 x 3.4 x 0.9 cm hypoechoic/anechoic area overlying left chest pacemaker power pack. This could represent either a discrete fluid collection or a focal area of very edematous tissue. Infected fluid pocket also possible. 11/18 Bcx 3/4 S. epi; 11/20 Bcx neg; 11/24 Bcx Neg; 11/27 Bcx Neg CAD s/p CABG GERD/gastritis Afib HTN Dysphagia sp GT Aortic dissection s/p repair 2017, S/p PPM Parkinson's Disease Schizophrenia Anxiety COPD Chronic resp failure s/p trach Hx of tracheal bleeding MD resident ([facility]) VRE and MRSA colonized Plan: -IV Gentamycin #9/10 for MDR PsA -12/07 SP Meropenem #10 -12/01 SP IV Vancomycin #5 - 11/28 Sp Cefepime #2 and IV Gentamycin x1 -f/u cx -Monitor CBC/CMP, temperatures -PEG/trach care -aspiration precautions -COVID19 neg x2 Subjective Allergies: Coded Allergies: No Known Allergies (Unverified , 10/10/17) afebrile no leukocytosis Objective Last 24 Hour Vital Signs Date Time Temp Pulse Resp B/P (MAP) Pulse Ox O2 Delivery O2 Flow Rate FiO2 12/10/19 12:00 Mechanical Ventilator 12/10/19 12:00 50 12/10/19 12:00 98.2 59 20 150/67 (94) 99 12/10/19 11:49 58 20 50 12/10/19 11:37 55 12/10/19 09:43 148/69 12/10/19 09:42 55 148/69 12/10/19 09:21 55 20 50 12/10/19 09:00 55 148/69 12/10/19 08:00 Mechanical Ventilator 12/10/19 08:00 50 12/10/19 08:00 98.4 56 20 148/69 (95) 95 12/10/19 07:33 64 12/10/19 07:04 58 20 50 12/10/19 05:06 55 20 60 12/10/19 04:00 Mechanical Ventilator 12/10/19 04:00 64 12/10/19 04:00 60 12/10/19 04:00 98.1 62 20 154/68 (96) 96 12/10/19 03:00 65 20 60 12/10/19 01:17 66 21 60 12/10/19 00:00 Mechanical Ventilator 12/10/19 00:00 67 12/10/19 00:00 98.2 66 19 150/70 (96) 95 12/10/19 00:00 60 12/09/19 23:24 69 21 60 12/09/19 20:43 70 19 60 12/09/19 20:29 66 156/76 12/09/19 20:03 50 12/09/19 20:02 Mechanical Ventilator 12/09/19 20:02 65 12/09/19 20:00 98.2 66 20 156/72 (100) 97 12/09/19 19:00 82 21 50 12/09/19 17:37 70 150/83 12/09/19 17:05 70 22 50 12/09/19 16:00 50 12/09/19 16:00 73 12/09/19 16:00 Mechanical Ventilator 12/09/19 16:00 98.1 71 20 150/83 (105) 100 12/09/19 15:05 76 20 50 Height (Feet): 5 Height (Inches): 4.00 Weight (Pounds): 150 General Appearance: no acute distress HEENT: atraumatic, trach in place Respiratory/Chest: no respiratory distress Cardiovascular: regular rhythm Laboratory Tests Test 12/10/19 02:30 White Blood Count 9.0 K/UL (4.8-10.8) Red Blood Count 2.68 M/UL (4.20-5.40) L Hemoglobin 7.4 G/DL (12.0-16.0) L Hematocrit 23.0 % (37.0-47.0) L Mean Corpuscular Volume 86 FL (80-99) Mean Corpuscular Hemoglobin 27.7 PG (27.0-31.0) Mean Corpuscular Hemoglobin Concent 32.3 G/DL (32.0-36.0) Red Cell Distribution Width 13.7 % (11.6-14.8) Platelet Count 288 K/UL (150-450) Mean Platelet Volume 5.3 FL (6.5-10.1) L Neutrophils (%) (Auto) % (45.0-75.0) Lymphocytes (%) (Auto) % (20.0-45.0) Monocytes (%) (Auto) % (1.0-10.0) Eosinophils (%) (Auto) % (0.0-3.0) Basophils (%) (Auto) % (0.0-2.0) Sodium Level 136 MMOL/L (136-145) Potassium Level 3.6 MMOL/L (3.5-5.1) Chloride Level 98 MMOL/L (98-107) Carbon Dioxide Level 27 MMOL/L (21-32) Anion Gap 12 mmol/L (5-15) Blood Urea Nitrogen 110 mg/dL (7-18) H Creatinine 3.5 MG/DL (0.55-1.30) H Estimat Glomerular Filtration Rate 14.0 mL/min (>60) Glucose Level 90 MG/DL (74-106) Uric Acid 6.9 MG/DL (2.6-7.2) Calcium Level 8.2 MG/DL (8.5-10.1) L Phosphorus Level 4.8 MG/DL (2.5-4.9) Magnesium Level 2.9 MG/DL (1.8-2.4) H Total Bilirubin 0.3 MG/DL (0.2-1.0) Aspartate Amino Transf (AST/SGOT) 44 U/L (15-37) H Alanine Aminotransferase (ALT/SGPT) 17 U/L (12-78) Alkaline Phosphatase 387 U/L (46-116) H Total Protein 5.5 G/DL (6.4-8.2) L Albumin 2.0 G/DL (3.4-5.0) L Globulin 3.5 g/dL Albumin/Globulin Ratio 0.6 (1.0-2.7) L Lipase 646 U/L (73-393) H Current Medications Medications (Trade) Dose Ordered Sig/Penny Route PRN Reason Start Time Stop Time Status Last Admin Dose Admin Acetaminophen (Tylenol) 650 mg Q4H PRN GT Temp >100.5 11/29/19 04:30 12/29/19 04:29 12/06/19 09:14 Amantadine HCl (Symmetrel) 100 mg TWICE A DAY GT 12/07/19 18:00 01/06/20 17:59 12/10/19 09:41 Amlodipine Besylate (Norvasc) 5 mg BID GT 12/08/19 18:00 01/05/20 08:59 12/10/19 09:42 Ascorbic Acid (Vitamin C) 500 mg DAILY GT 11/29/19 09:00 12/29/19 08:59 12/10/19 09:41 Clonidine HCl (Catapres TTS-1) 1 patch ONCE A WEEK TDERMAL 12/03/19 09:00 03/02/20 08:59 12/10/19 09:43 Clotrimazole (Lotrimin) 1 applic THREE TIMES A DAY TOPIC 12/01/19 13:00 02/29/20 12:59 12/10/19 09:42 Epoetin Gelacio (Epoetin Gelacio-EPBX(NON ESRD)) 10,000 unit MON-WED-MON SUBQ 11/29/19 21:00 02/27/20 20:59 12/09/19 20:29 Gentamicin Protocol (Gentamicin pharmacy to dose) 1 ea DAILY PRN MISC Per rx protocol 12/02/19 18:00 01/01/20 17:59 Heparin Sodium (Porcine) (Heparin 5000 units/ml) 5,000 units EVERY 12 HOURS SUBQ 11/29/19 09:00 01/13/20 08:59 12/10/19 09:45 Hydralazine HCl (Apresoline) 25 mg Q4H PRN ORAL bp over 160 syst 12/08/19 12:30 03/07/20 12:29 12/09/19 11:45 Lansoprazole (Prevacid) 30 mg BID GT 12/08/19 18:00 12/31/19 11:59 12/10/19 09:41 Metoclopramide HCl (Reglan) 10 mg Q6H IVP 12/04/19 10:00 01/03/20 09:59 12/10/19 09:41 Metoprolol Tartrate (Lopressor) 12.5 mg Q12HR ORAL 12/03/19 21:00 03/02/20 08:59 12/09/19 20:29 Polyethylene Glycol (Miralax) 17 gm BEDTIME GT 11/29/19 21:00 12/29/19 20:59 12/09/19 20:29 Vitamin B Complex/ Vit C/Folic Acid (Nephrovite) 1 tab DAILY GT 11/29/19 09:00 12/29/19 08:59 12/10/19 09:41 Zinc Sulfate (Zinc Sulfate) 220 mg DAILY GT 11/29/19 09:00 02/27/20 08:59 12/10/19 09:41 Doreen Nino M.D. Dec 10, 2019 13:50
[2019-12-10 16:00] VITALS: BP 157/68
--- NOTE | 2019-12-10 19:19 | General Progress Note ---
Subjective Constitutional: Reports: no symptoms HEENT: Reports: no symptoms Cardiovascular: Reports: no symptoms Respiratory: Reports: no symptoms Gastrointestinal/Abdominal: Reports: no symptoms Genitourinary: Reports: no symptoms Neurologic/Psychiatric: Reports: no symptoms Hematologic/Lymphatic: Reports: no symptoms Allergies: Coded Allergies: No Known Allergies (Unverified , 10/10/17) Objective Last 24 Hour Vital Signs Date Time Temp Pulse Resp B/P (MAP) Pulse Ox O2 Delivery O2 Flow Rate FiO2 12/10/19 18:56 63 20 50 12/10/19 18:30 59 157/68 12/10/19 17:10 59 23 50 12/10/19 16:00 50 12/10/19 16:00 98.2 63 20 157/68 (97) 95 12/10/19 16:00 Mechanical Ventilator 12/10/19 16:00 65 12/10/19 15:00 59 20 50 12/10/19 13:40 55 21 50 12/10/19 12:00 Mechanical Ventilator 12/10/19 12:00 50 12/10/19 12:00 98.2 59 20 150/67 (94) 99 12/10/19 11:49 58 20 50 12/10/19 11:37 55 12/10/19 09:43 148/69 12/10/19 09:42 55 148/69 12/10/19 09:21 55 20 50 12/10/19 09:00 55 148/69 12/10/19 08:00 Mechanical Ventilator 12/10/19 08:00 50 12/10/19 08:00 98.4 56 20 148/69 (95) 95 12/10/19 07:33 64 12/10/19 07:04 58 20 50 12/10/19 05:06 55 20 60 12/10/19 04:00 Mechanical Ventilator 12/10/19 04:00 64 12/10/19 04:00 60 12/10/19 04:00 98.1 62 20 154/68 (96) 96 12/10/19 03:00 65 20 60 12/10/19 01:17 66 21 60 12/10/19 00:00 Mechanical Ventilator 12/10/19 00:00 67 12/10/19 00:00 98.2 66 19 150/70 (96) 95 12/10/19 00:00 60 12/09/19 23:24 69 21 60 12/09/19 20:43 70 19 60 12/09/19 20:29 66 156/76 12/09/19 20:03 50 12/09/19 20:02 Mechanical Ventilator 12/09/19 20:02 65 12/09/19 20:00 98.2 66 20 156/72 (100) 97 Intake and Output 12/09/19 12/10/19 19:00 07:00 Intake Total 460 ml 530 ml Output Total 1100 ml 1400 ml Balance -640 ml -870 ml Intake Free Water 100 ml 50 ml Tube Feeding 360 ml 480 ml Output Urine Total 1100 ml 1400 ml # Bowel Movements 2 Laboratory Tests 12/10/19 02:30: White Blood Count 9.0, Red Blood Count 2.68L, Hemoglobin 7.4L, Hematocrit 23.0L, Mean Corpuscular Volume 86, Mean Corpuscular Hemoglobin 27.7, Mean Corpuscular Hemoglobin Concent 32.3, Red Cell Distribution Width 13.7, Platelet Count 288, Mean Platelet Volume 5.3L, Neutrophils (%) (Auto) , Lymphocytes (%) (Auto) , Monocytes (%) (Auto) , Eosinophils (%) (Auto) , Basophils (%) (Auto) , Sodium Level 136, Potassium Level 3.6, Chloride Level 98, Carbon Dioxide Level 27, Anion Gap 12, Blood Urea Nitrogen 110H, Creatinine 3.5H, Estimat Glomerular Filtration Rate 14.0, Glucose Level 90, Uric Acid 6.9, Calcium Level 8.2L, Phosphorus Level 4.8, Magnesium Level 2.9H, Total Bilirubin 0.3, Aspartate Amino Transf (AST/SGOT) 44H, Alanine Aminotransferase (ALT/SGPT) 17, Alkaline Phosphatase 387H, Total Protein 5.5L, Albumin 2.0L, Globulin 3.5, Albumin/Globulin Ratio 0.6L, Lipase 646H Height (Feet): 5 Height (Inches): 4.00 Weight (Pounds): 150 General Appearance: alert EENT: normal ENT inspection Neck: supple Cardiovascular: normal rate, regular rhythm, no gallop/murmur, no JVD Respiratory/Chest: lungs clear, normal breath sounds, no respiratory distress, no accessory muscle use Abdomen: normal bowel sounds, non tender, soft, no organomegaly, no mass Extremities: non-tender Neurologic: alert, responsive Assessment/Plan Status Narrative Patient is awake alert afebrile hemodynamically stable. Her blood pressure is normal and so is her heart rate and her urine output is 600 laboratory tests reveal she has no leukocytosis has chronic renal failure with maintain her CO2 and potassium at normal level repeat laboratory tests will be done in a.m. if tests are normal patient will be discharged back to his extended care facility subacute unit Lucas Canales MD, MD Dec 10, 2019 19:19
[2019-12-10] MEDS: HydrALAZINE 25mg tab ORAL PRN (19:44)
[2019-12-10 20:00] VITALS: BP 164/71
[2019-12-10] MEDS: Miralax 17gm pkt GT SCH (21:10)
--- NOTE | 2019-12-10 23:12 | Cardiology Progress Note ---
Subjective DATE OF SERVICE: Dec 10, 2019 On vent support BP stabilizing. Heart rates controlled. Head CT (12/05) reveals pansinusitis; no acute process CXR (12/08/19) reveals resolving right infiltrate with mod left eff'n. Renal fxn improved; hemoglobin dropping to 7.4gm/dl. ABG: (12/06) 7.47/37/74 Monitor: Sinus. No further bradycardia. No pauses. CT scan confirmed chronic aortic dissection Objective Last 24 Hour Vital Signs Date Time Temp Pulse Resp B/P (MAP) Pulse Ox O2 Delivery O2 Flow Rate FiO2 12/10/19 21:17 74 20 50 12/10/19 21:11 79 170/88 12/10/19 20:00 50 12/10/19 20:00 Mechanical Ventilator 12/10/19 20:00 65 12/10/19 20:00 97.5 60 20 164/71 (102) 98 12/10/19 19:44 164/71 12/10/19 18:56 63 20 50 12/10/19 18:30 59 157/68 12/10/19 17:10 59 23 50 12/10/19 16:00 50 12/10/19 16:00 98.2 63 20 157/68 (97) 95 12/10/19 16:00 Mechanical Ventilator 12/10/19 16:00 65 12/10/19 15:00 59 20 50 12/10/19 13:40 55 21 50 12/10/19 12:00 Mechanical Ventilator 12/10/19 12:00 50 12/10/19 12:00 98.2 59 20 150/67 (94) 99 12/10/19 11:49 58 20 50 12/10/19 11:37 55 12/10/19 09:43 148/69 12/10/19 09:42 55 148/69 12/10/19 09:21 55 20 50 12/10/19 09:00 55 148/69 12/10/19 08:00 Mechanical Ventilator 12/10/19 08:00 50 12/10/19 08:00 98.4 56 20 148/69 (95) 95 12/10/19 07:33 64 12/10/19 07:04 58 20 50 12/10/19 05:06 55 20 60 12/10/19 04:00 Mechanical Ventilator 12/10/19 04:00 64 10/27/20 04:00 60 12/10/19 04:00 98.1 62 20 154/68 (96) 96 12/10/19 03:00 65 20 60 12/10/19 01:17 66 21 60 12/10/19 00:00 Mechanical Ventilator 12/10/19 00:00 67 12/10/19 00:00 98.2 66 19 150/70 (96) 95 12/10/19 00:00 60 12/09/19 23:24 69 21 60 ROS: no changes from my prior evaluation 11/30/19 HEENT: Thin secretions ET Tube RHYTHM: NSR LUNGS: bilateral rhonchi CARDIAC: normal rate, regular rhythm, normal S1 and S2 ABDOMEN: normal bowel sounds, G-Tube intact EXTREMITIES: +2 edema Laboratory Tests Test 12/10/19 02:30 White Blood Count 9.0 K/UL (4.8-10.8) Red Blood Count 2.68 M/UL (4.20-5.40) L Hemoglobin 7.4 G/DL (12.0-16.0) L Hematocrit 23.0 % (37.0-47.0) L Mean Corpuscular Volume 86 FL (80-99) Mean Corpuscular Hemoglobin 27.7 PG (27.0-31.0) Mean Corpuscular Hemoglobin Concent 32.3 G/DL (32.0-36.0) Red Cell Distribution Width 13.7 % (11.6-14.8) Platelet Count 288 K/UL (150-450) Mean Platelet Volume 5.3 FL (6.5-10.1) L Neutrophils (%) (Auto) % (45.0-75.0) Lymphocytes (%) (Auto) % (20.0-45.0) Monocytes (%) (Auto) % (1.0-10.0) Eosinophils (%) (Auto) % (0.0-3.0) Basophils (%) (Auto) % (0.0-2.0) Sodium Level 136 MMOL/L (136-145) Potassium Level 3.6 MMOL/L (3.5-5.1) Chloride Level 98 MMOL/L (98-107) Carbon Dioxide Level 27 MMOL/L (21-32) Anion Gap 12 mmol/L (5-15) Blood Urea Nitrogen 110 mg/dL (7-18) H Creatinine 3.5 MG/DL (0.55-1.30) H Estimat Glomerular Filtration Rate 14.0 mL/min (>60) Glucose Level 90 MG/DL (74-106) Uric Acid 6.9 MG/DL (2.6-7.2) Calcium Level 8.2 MG/DL (8.5-10.1) L Phosphorus Level 4.8 MG/DL (2.5-4.9) Magnesium Level 2.9 MG/DL (1.8-2.4) H Total Bilirubin 0.3 MG/DL (0.2-1.0) Aspartate Amino Transf (AST/SGOT) 44 U/L (15-37) H Alanine Aminotransferase (ALT/SGPT) 17 U/L (12-78) Alkaline Phosphatase 387 U/L (46-116) H Total Protein 5.5 G/DL (6.4-8.2) L Albumin 2.0 G/DL (3.4-5.0) L Globulin 3.5 g/dL Albumin/Globulin Ratio 0.6 (1.0-2.7) L Lipase 646 U/L (73-393) H Assessment/Plan Assessment/Plan Hypertension/HHD with elevated BP trend. 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 Titrate beta flori - now stable heart rate on low dose regimen. Advance antiHTN regimen Vent support Diuresis as able Titrate amlodipine dose for increased BP trend. Reassess beta flori dosing based on clinical parameters. Favor PRBC transfusion for today's further drop in hemoglobin. Deni Willams MD Dec 10, 2019 23:12
[2019-12-11] VITALS: BP 171/100
[2019-12-11] MEDS: HydrALAZINE 25mg tab ORAL SCH ×4 (00:01→22:41)
[2019-12-11 04:00] VITALS: BP 148/66
[2019-12-11] MEDS: Metoclopramide 10mg/2ml Inj IVP SCH ×4 (04:23→21:30)
[2019-12-11 04:56] LABS: HEMATOCRIT 22.2 % (37.0-47.0); HEMOGLOBIN 7.1 G/DL (12.0-16.0); MEAN CORPUSCULAR VOLUME 86 FL (80-99); PLATELET COUNT 265 K/UL (150-450); RED BLOOD COUNT 2.58 M/UL (4.20-5.40); RED CELL DISTRIBUTION WIDTH 13.5 % (11.6-14.8)
[2019-12-11 05:13] LABS: CALCIUM 8.6 MG/DL (8.5-10.1); CREATININE 3.7 MG/DL (0.55-1.30); POTASSIUM 3.4 MMOL/L (3.5-5.1)
--- NOTE | 2019-12-11 05:49 | Cardiology Progress Note ---
Subjective DATE OF SERVICE: Dec 11, 2019 On vent spport BP stabilizing. Heart rates controlled. Head CT (12/05) reveals pansinusitis; no acute process CXR (12/08/19) reveals resolving right infiltrate with mod left eff'n. Renal fxn improved; hemoglobin dropping to 7 gm/dl. ABG: (12/06) 7.47/37/74 Monitor: Sinus. No further bradycardia. No pauses. CT scan confirmed chronic aortic dissection Objective Last 24 Hour Vital Signs Date Time Temp Pulse Resp B/P (MAP) Pulse Ox O2 Delivery O2 Flow Rate FiO2 12/11/19 05:42 137/68 12/11/19 05:12 58 20 50 12/11/19 04:00 Mechanical Ventilator 12/11/19 04:00 98.2 56 20 148/66 (93) 100 12/11/19 04:00 50 12/11/19 03:24 54 20 50 12/11/19 00:52 67 20 50 12/11/19 00:01 171/100 12/11/19 00:00 98.4 65 20 171/100 (123) 98 12/11/19 00:00 50 12/11/19 00:00 Mechanical Ventilator 12/10/19 23:36 71 12/10/19 23:34 67 12/10/19 23:14 64 20 50 12/10/19 21:17 74 20 50 12/10/19 21:11 79 170/88 12/10/19 20:00 50 12/10/19 20:00 Mechanical Ventilator 12/10/19 20:00 65 12/10/19 20:00 97.5 60 20 164/71 (102) 98 12/10/19 19:44 164/71 12/10/19 18:56 63 20 50 12/10/19 18:30 59 157/68 12/10/19 17:10 59 23 50 12/10/19 16:00 50 12/10/19 16:00 98.2 63 20 157/68 (97) 95 12/10/19 16:00 Mechanical Ventilator 12/10/19 16:00 65 12/10/19 15:00 59 20 50 12/10/19 13:40 55 21 50 12/10/19 12:00 Mechanical Ventilator 12/10/19 12:00 50 12/10/19 12:00 98.2 59 20 150/67 (94) 99 12/10/19 11:49 58 20 50 12/10/19 11:37 55 12/10/19 09:43 148/69 12/10/19 09:42 55 148/69 12/10/19 09:21 55 20 50 12/10/19 09:00 55 148/69 12/10/19 08:00 Mechanical Ventilator 12/10/19 08:00 50 12/10/19 08:00 98.4 56 20 148/69 (95) 95 12/10/19 07:33 64 12/10/19 07:04 58 20 50 ROS: no changes from my prior evaluation 11/30/19 HEENT: Thin secretions ET Tube RHYTHM: NSR LUNGS: bilateral rhonchi CARDIAC: normal rate, regular rhythm, normal S1 and S2 ABDOMEN: normal bowel sounds, G-Tube intact EXTREMITIES: +2 edema Laboratory Tests Test 12/11/19 03:35 White Blood Count 8.0 K/UL (4.8-10.8) Red Blood Count 2.58 M/UL (4.20-5.40) L Hemoglobin 7.1 G/DL (12.0-16.0) L Hematocrit 22.2 % (37.0-47.0) L Mean Corpuscular Volume 86 FL (80-99) Mean Corpuscular Hemoglobin 27.7 PG (27.0-31.0) Mean Corpuscular Hemoglobin Concent 32.2 G/DL (32.0-36.0) Red Cell Distribution Width 13.5 % (11.6-14.8) Platelet Count 265 K/UL (150-450) Mean Platelet Volume 5.3 FL (6.5-10.1) L Neutrophils (%) (Auto) % (45.0-75.0) Lymphocytes (%) (Auto) % (20.0-45.0) Monocytes (%) (Auto) % (1.0-10.0) Eosinophils (%) (Auto) % (0.0-3.0) Basophils (%) (Auto) % (0.0-2.0) Neutrophils % (Manual) Pending Lymphocytes % (Manual) Pending Platelet Estimate Pending Platelet Morphology Pending Sodium Level Pending Potassium Level Pending Chloride Level Pending Carbon Dioxide Level Pending Blood Urea Nitrogen Pending Creatinine Pending Estimat Glomerular Filtration Rate Pending Glucose Level Pending Calcium Level Pending Pro-B-Type Natriuretic Peptide Pending Random Gentamicin Level Pending Assessment/Plan Assessment/Plan Hypertension/HHD with improved BP trend. 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 Titrate beta flori - now stable heart rate on low dose regimen. Advance antiHTN regimen Vent support Diuresis as able Titrate amlodipine dose for increased BP trend. Reassess beta flori dosing based on clinical parameters. Favor PRBC transfusion for today's further drop in hemoglobin. Deni Willams MD Dec 11, 2019 05:49
--- NOTE | 2019-12-11 06:31 | Hematology/Onc Progress Note ---
Assessment/Plan Assessment/Plan Assessment and Recs # Leukocytosis, now with uti, though in past has had pna, pacemaker site infection and bacteremia --> is s/p pm removal and also pocket infection is better --> per cards recs in re to tach/davis --> wbc 29-->16-->17-->7 --> ABX vanc/angelo-->gent/angelo --> ID recs are noted # Anemia of chronic disease due to underlying chronic medical issues, multifactorial --> Anemia workup has been reviewed, cw acd --> No evidence of hemolysis is noted, peripheral smear has been reviewed. --> Hgb goal >7. Transfuse prn. --> Epogen started sq --> Medications have been reviewed --> low threshold for gi evaluation in case has occult + --> hgb 7.1-->7.8-->>>6.7->9.2-->8.9->8.2->8.5->7.7->7.4-->7.1 --> 1 unit prbc10/17 --> gi eval as needed # Thrombocytosis is likely reactive process, is s/p infection --> plt trend 358-->361->349 --> p smear reviewed # JAVIER initially >2 --> on ivfs -> may need hd per Dr. [place] # Elevated d-dimer --> venous duplex and v/q scan neg --> negative results duplex # Dysphagia s/p peg --> as per gi # Thoracic aortic dissection --> s/p repair early 2017 # Chronic Resp failure -> s/p trach/vent # Psychiatric history on ativan/haldol # [place] resident # Dvt ppx --> heparin sq The timing of this note does not necessarily reflect the time of the patient was seen. Greatly appreciate consultation. Subjective Constitutional: Denies: no symptoms, chills, fever, malaise, weakness, other HEENT: Denies: no symptoms, eye pain, blurred vision, tearing, double vision, ear pain, ear discharge, nose pain, nose congestion, throat pain, throat swelling, mouth pain, mouth swelling, other Respiratory: Denies: no symptoms, cough, shortness of breath, SOB with excertion, SOB at rest, sputum, wheezing, other Gastrointestinal/Abdominal: Denies: no symptoms, abdomen distended, abdominal pain, black stools, tarry stools, blood in stool, constipated, diarrhea, difficulty swallowing, nausea, poor appetite, poor fluid intake, rectal bleeding, vomiting, other Genitourinary: Denies: no symptoms, burning, discharge, frequency, flank pain, hematuria, incontinence, pain, urgency, other Neurologic/Psychiatric: Denies: no symptoms, anxiety, depressed, emotional problems, headache, numbness, paresthesia, pre-existing deficit, seizure, tingling, tremors, weakness, other Endocrine: Denies: no symptoms, excessive sweating, flushing, intolerance to cold, intolerance to heat, increased hunger, increased thirst, increased urine, unexplained weight gain, unexplained weight loss, other Allergies: Coded Allergies: No Known Allergies (Unverified , 10/10/17) Subjective 12/01 on vent, with gtube and raymond, no bleeding, labs are noted 12/02 labs noted, remains on abx, dw Rn at bedside is on abx, hgb 8.9 12/03 roman Rn in am, with drainage blood from gtube site, and mouth,gi aware 12/04 on vent, hgb 8.2, no bleeding, k was given overnight 12/05 labs reviewed, on vent, no bleeding, gb 8.5, no hemolysis is seen 12/07 asymptomatic, a+o x1, no bleeding, meds reviewed, labs noted 12/08 nv, trach to vent, no bleeding, meds reviewed, no night sweats, hep sq 12/09 labs noted, no bleeding, meds reviewed, hgb 7.4, no hemolysis 12/10 labs reviewed, hgb 7.1, s/p 1 unit prbc ordered Objective Objective Current Medications Medications (Trade) Dose Ordered Sig/Penny Route PRN Reason Start Time Stop Time Status Last Admin Dose Admin Acetaminophen (Tylenol) 650 mg Q4H PRN GT Temp >100.5 11/29/19 04:30 12/29/19 04:29 12/06/19 09:14 Amantadine HCl (Symmetrel) 100 mg TWICE A DAY GT 12/07/19 18:00 01/06/20 17:59 12/10/19 18:30 Amlodipine Besylate (Norvasc) 5 mg BID GT 12/08/19 18:00 01/05/20 08:59 12/10/19 18:30 Ascorbic Acid (Vitamin C) 500 mg DAILY GT 11/29/19 09:00 12/29/19 08:59 12/10/19 09:41 Clonidine HCl (Catapres TTS-1) 1 patch ONCE A WEEK TDERMAL 12/03/19 09:00 03/02/20 08:59 12/10/19 09:43 Clotrimazole (Lotrimin) 1 applic THREE TIMES A DAY TOPIC 12/01/19 13:00 02/29/20 12:59 12/10/19 18:31 Epoetin Gelacio (Epoetin Gelacio-EPBX(NON ESRD)) 10,000 unit MON-MON-MON SUBQ 11/29/19 21:00 02/27/20 20:59 12/09/19 20:29 Gentamicin Protocol (Gentamicin pharmacy to dose) 1 ea DAILY PRN MISC Per rx protocol 12/02/19 18:00 01/01/20 17:59 Heparin Sodium (Porcine) (Heparin 5000 units/ml) 5,000 units EVERY 12 HOURS SUBQ 11/29/19 09:00 01/13/20 08:59 12/10/19 09:45 Hydralazine HCl (Apresoline) 25 mg Q4H PRN ORAL bp over 160 syst 12/08/19 12:30 03/07/20 12:29 12/10/19 19:44 Hydralazine HCl (Apresoline) 25 mg Q8HR ORAL 12/10/19 23:30 03/09/20 23:29 12/11/19 05:42 Lansoprazole (Prevacid) 30 mg BID GT 12/08/19 18:00 12/31/19 11:59 12/10/19 18:30 Metoclopramide HCl (Reglan) 10 mg Q6H IVP 12/04/19 10:00 01/03/20 09:59 12/11/19 04:23 Metoprolol Tartrate (Lopressor) 12.5 mg Q12HR ORAL 12/03/19 21:00 03/02/20 08:59 12/10/19 21:11 Polyethylene Glycol (Miralax) 17 gm BEDTIME GT 11/29/19 21:00 12/29/19 20:59 12/10/19 21:10 Vitamin B Complex/ Vit C/Folic Acid (Nephrovite) 1 tab DAILY GT 11/29/19 09:00 12/29/19 08:59 12/10/19 09:41 Zinc Sulfate (Zinc Sulfate) 220 mg DAILY GT 11/29/19 09:00 02/27/20 08:59 12/10/19 09:41 Last 24 Hour Vital Signs Date Time Temp Pulse Resp B/P (MAP) Pulse Ox O2 Delivery O2 Flow Rate FiO2 12/11/19 05:42 137/68 12/11/19 05:12 58 20 50 12/11/19 04:00 Mechanical Ventilator 12/11/19 04:00 98.2 56 20 148/66 (93) 100 12/11/19 04:00 50 12/11/19 04:00 51 12/11/19 03:24 54 20 50 12/11/19 00:52 67 20 50 12/11/19 00:01 171/100 12/11/19 00:00 98.4 65 20 171/100 (123) 98 12/11/19 00:00 50 12/11/19 00:00 Mechanical Ventilator 12/10/19 23:36 71 12/10/19 23:34 67 12/10/19 23:14 64 20 50 12/10/19 21:17 74 20 50 12/10/19 21:11 79 170/88 12/10/19 20:00 50 12/10/19 20:00 Mechanical Ventilator 12/10/19 20:00 65 12/10/19 20:00 97.5 60 20 164/71 (102) 98 12/10/19 19:44 164/71 12/10/19 18:56 63 20 50 12/10/19 18:30 59 157/68 12/10/19 17:10 59 23 50 12/10/19 16:00 50 12/10/19 16:00 98.2 63 20 157/68 (97) 95 12/10/19 16:00 Mechanical Ventilator 12/10/19 16:00 65 12/10/19 15:00 59 20 50 12/10/19 13:40 55 21 50 12/10/19 12:00 Mechanical Ventilator 12/10/19 12:00 50 12/10/19 12:00 98.2 59 20 150/67 (94) 99 12/10/19 11:49 58 20 50 12/10/19 11:37 55 12/10/19 09:43 148/69 12/10/19 09:42 55 148/69 12/10/19 09:21 55 20 50 12/10/19 09:00 55 148/69 12/10/19 08:00 Mechanical Ventilator 12/10/19 08:00 50 12/10/19 08:00 98.4 56 20 148/69 (95) 95 12/10/19 07:33 64 12/10/19 07:04 58 20 50 12/10/19 05:06 55 20 60 12/10/19 04:00 Mechanical Ventilator 12/10/19 04:00 64 12/10/19 04:00 60 12/10/19 04:00 98.1 62 20 154/68 (96) 96 12/10/19 03:00 65 20 60 12/10/19 01:17 66 21 60 12/10/19 00:00 Mechanical Ventilator 12/10/19 00:00 67 12/10/19 00:00 98.2 66 19 150/70 (96) 95 12/10/19 00:00 60 12/09/19 23:24 69 21 60 12/09/19 20:43 70 19 60 12/09/19 20:29 66 156/76 12/09/19 20:03 50 12/09/19 20:02 Mechanical Ventilator 12/09/19 20:02 65 12/09/19 20:00 98.2 66 20 156/72 (100) 97 12/09/19 19:00 82 21 50 12/09/19 17:37 70 150/83 12/09/19 17:05 70 22 50 12/09/19 16:00 50 12/09/19 16:00 73 12/09/19 16:00 Mechanical Ventilator 12/09/19 16:00 98.1 71 20 150/83 (105) 100 12/09/19 15:05 76 20 50 12/09/19 13:07 71 22 50 12/09/19 12:00 Mechanical Ventilator 12/09/19 12:00 97.9 73 20 165/69 (101) 100 12/09/19 12:00 50 12/09/19 12:00 73 12/09/19 11:45 165/69 12/09/19 11:10 72 21 50 12/09/19 09:16 65 20 50 12/09/19 08:43 69 157/79 12/09/19 08:42 65 157/79 12/09/19 08:00 64 12/09/19 08:00 50 12/09/19 08:00 98.1 69 20 157/79 (105) 100 12/09/19 08:00 Mechanical Ventilator 12/09/19 07:15 64 20 50 Intake and Output 12/10/19 12/11/19 19:00 07:00 Intake Total 760 ml 590 ml Output Total 1000 ml Balance 760 ml -410 ml Intake Free Water 360 ml 150 ml Tube Feeding 400 ml 440 ml Output Urine Total 1000 ml # Bowel Movements 1 Labs Test 12/09/19 03:25 12/09/19 09:50 12/10/19 02:30 12/11/19 03:35 White Blood Count 8.8 K/UL (4.8-10.8) 9.0 K/UL (4.8-10.8) 8.0 K/UL (4.8-10.8) Red Blood Count 2.71 M/UL (4.20-5.40) 2.68 M/UL (4.20-5.40) 2.58 M/UL (4.20-5.40) Hemoglobin 7.7 G/DL (12.0-16.0) 7.4 G/DL (12.0-16.0) 7.1 G/DL (12.0-16.0) Hematocrit 23.6 % (37.0-47.0) 23.0 % (37.0-47.0) 22.2 % (37.0-47.0) Mean Corpuscular Volume 87 FL (80-99) 86 FL (80-99) 86 FL (80-99) Mean Corpuscular Hemoglobin 28.5 PG (27.0-31.0) 27.7 PG (27.0-31.0) 27.7 PG (27.0-31.0) Mean Corpuscular Hemoglobin Concent 32.8 G/DL (32.0-36.0) 32.3 G/DL (32.0-36.0) 32.2 G/DL (32.0-36.0) Red Cell Distribution Width 13.7 % (11.6-14.8) 13.7 % (11.6-14.8) 13.5 % (11.6-14.8) Platelet Count 309 K/UL (150-450) 288 K/UL (150-450) 265 K/UL (150-450) Mean Platelet Volume 4.9 FL (6.5-10.1) 5.3 FL (6.5-10.1) 5.3 FL (6.5-10.1) Neutrophils (%) (Auto) % (45.0-75.0) % (45.0-75.0) % (45.0-75.0) Lymphocytes (%) (Auto) % (20.0-45.0) % (20.0-45.0) % (20.0-45.0) Monocytes (%) (Auto) % (1.0-10.0) % (1.0-10.0) % (1.0-10.0) Eosinophils (%) (Auto) % (0.0-3.0) % (0.0-3.0) % (0.0-3.0) Basophils (%) (Auto) % (0.0-2.0) % (0.0-2.0) % (0.0-2.0) Sodium Level 136 MMOL/L (136-145) 136 MMOL/L (136-145) 137 MMOL/L (136-145) Potassium Level 3.4 MMOL/L (3.5-5.1) 3.6 MMOL/L (3.5-5.1) 3.4 MMOL/L (3.5-5.1) Chloride Level 96 MMOL/L (98-107) 98 MMOL/L (98-107) 100 MMOL/L (98-107) Carbon Dioxide Level 26 MMOL/L (21-32) 27 MMOL/L (21-32) 27 MMOL/L (21-32) Anion Gap 14 mmol/L (5-15) 12 mmol/L (5-15) 10 mmol/L (5-15) Blood Urea Nitrogen 114 mg/dL (7-18) 110 mg/dL (7-18) 109 mg/dL (7-18) Creatinine 3.6 MG/DL (0.55-1.30) 3.5 MG/DL (0.55-1.30) 3.7 MG/DL (0.55-1.30) Estimat Glomerular Filtration Rate 13.6 mL/min (>60) 14.0 mL/min (>60) 13.1 mL/min (>60) Glucose Level 91 MG/DL (74-106) 90 MG/DL (74-106) 109 MG/DL (74-106) Uric Acid 7.1 MG/DL (2.6-7.2) 6.9 MG/DL (2.6-7.2) Calcium Level 8.0 MG/DL (8.5-10.1) 8.2 MG/DL (8.5-10.1) 8.6 MG/DL (8.5-10.1) Phosphorus Level 5.0 MG/DL (2.5-4.9) 4.8 MG/DL (2.5-4.9) Magnesium Level 3.0 MG/DL (1.8-2.4) 2.9 MG/DL (1.8-2.4) Total Bilirubin 0.4 MG/DL (0.2-1.0) 0.3 MG/DL (0.2-1.0) Aspartate Amino Transf (AST/SGOT) 56 U/L (15-37) 44 U/L (15-37) Alanine Aminotransferase (ALT/SGPT) 18 U/L (12-78) 17 U/L (12-78) Alkaline Phosphatase 367 U/L (46-116) 387 U/L (46-116) C-Reactive Protein, Quantitative 7.4 mg/dL (0.00-0.90) Pro-B-Type Natriuretic Peptide > 55355 pg/mL (0-125) > 16034 pg/mL (0-125) Total Protein 5.7 G/DL (6.4-8.2) 5.5 G/DL (6.4-8.2) Albumin 2.0 G/DL (3.4-5.0) 2.0 G/DL (3.4-5.0) Globulin 3.7 g/dL 3.5 g/dL Albumin/Globulin Ratio 0.5 (1.0-2.7) 0.6 (1.0-2.7) Random Gentamicin Level 2.6 ug/mL 1.9 ug/mL Prothrombin Time 12.9 SEC (9.30-11.50) Prothromb Time International Ratio 1.2 (0.9-1.1) Lipase 646 U/L (73-393) Height (Feet): 5 Height (Inches): 4.00 Weight (Pounds): 150 Objective Physical Exam: Vitals: reviewed General: NAD HEENT: nc, at Neck: supple ++tracn/vent Chest: clear breath sounds bilaterally Cardiovascular: RRR, no s3, s4 Abdomen: soft, nontender, nd +gtube Extremities: no cce, normal range of motion Neuro: alert ++Evan Molina MD Dec 11, 2019 06:31
[2019-12-11 08:00] VITALS: BP 153/69
[2019-12-11 08:44] LABS: ALANINE AMINOTRANSFERASE 17 U/L (12-78); ALKALINE PHOSPHATASE 417 U/L (46-116); ASPARTATE AMINO TRANSFERASE 49 U/L (15-37); BILIRUBIN,DIRECT 0.1 MG/DL (0.0-0.3); BILIRUBIN,TOTAL 0.3 MG/DL (0.2-1.0); PHOSPHORUS 4.9 MG/DL (2.5-4.9)
--- NOTE | 2019-12-11 08:49 | General Progress Note ---
Subjective ROS Limited/Unobtainable: No Allergies: Coded Allergies: No Known Allergies (Unverified , 10/10/17) Objective Last 24 Hour Vital Signs Date Time Temp Pulse Resp B/P (MAP) Pulse Ox O2 Delivery O2 Flow Rate FiO2 12/11/19 07:15 57 20 50 12/11/19 05:42 137/68 12/11/19 05:12 58 20 50 12/11/19 04:00 Mechanical Ventilator 12/11/19 04:00 98.2 56 20 148/66 (93) 100 12/11/19 04:00 50 12/11/19 04:00 51 12/11/19 03:24 54 20 50 12/11/19 00:52 67 20 50 12/11/19 00:01 171/100 12/11/19 00:00 98.4 65 20 171/100 (123) 98 12/11/19 00:00 50 12/11/19 00:00 Mechanical Ventilator 12/10/19 23:36 71 12/10/19 23:34 67 12/10/19 23:14 64 20 50 12/10/19 21:17 74 20 50 12/10/19 21:11 79 170/88 12/10/19 20:00 50 12/10/19 20:00 Mechanical Ventilator 12/10/19 20:00 65 12/10/19 20:00 97.5 60 20 164/71 (102) 98 12/10/19 19:44 164/71 12/10/19 18:56 63 20 50 12/10/19 18:30 59 157/68 12/10/19 17:10 59 23 50 12/10/19 16:00 50 12/10/19 16:00 98.2 63 20 157/68 (97) 95 12/10/19 16:00 Mechanical Ventilator 12/10/19 16:00 65 12/10/19 15:00 59 20 50 12/10/19 13:40 55 21 50 12/10/19 12:00 Mechanical Ventilator 12/10/19 12:00 50 12/10/19 12:00 98.2 59 20 150/67 (94) 99 12/10/19 11:49 58 20 50 12/10/19 11:37 55 12/10/19 09:43 148/69 12/10/19 09:42 55 148/69 12/10/19 09:21 55 20 50 12/10/19 09:00 55 148/69 Intake and Output 12/10/19 12/11/19 19:00 07:00 Intake Total 760 ml 590 ml Output Total 1000 ml Balance 760 ml -410 ml Intake Free Water 360 ml 150 ml Tube Feeding 400 ml 440 ml Output Urine Total 1000 ml # Bowel Movements 1 Laboratory Tests 12/11/19 03:35: White Blood Count 8.0, Red Blood Count 2.58L, Hemoglobin 7.1L, Hematocrit 22.2L, Mean Corpuscular Volume 86, Mean Corpuscular Hemoglobin 27.7, Mean Corpuscular Hemoglobin Concent 32.2, Red Cell Distribution Width 13.5, Platelet Count 265, Mean Platelet Volume 5.3L, Neutrophils (%) (Auto) , Lymphocytes (%) (Auto) , Monocytes (%) (Auto) , Eosinophils (%) (Auto) , Basophils (%) (Auto) , Neutrophils % (Manual) [Pending], Lymphocytes % (Manual) [Pending], Platelet Estimate [Pending], Platelet Morphology [Pending], Sodium Level 137, Potassium Level 3.4L, Chloride Level 100, Carbon Dioxide Level 27, Anion Gap 10, Blood Urea Nitrogen 109H, Creatinine 3.7H, Estimat Glomerular Filtration Rate 13.1, Glucose Level 109H, Calcium Level 8.6, Phosphorus Level 4.9, Magnesium Level 2.9H, Total Bilirubin 0.3, Direct Bilirubin 0.1, Aspartate Amino Transf (AST/SGOT) 49H, Alanine Aminotransferase (ALT/SGPT) 17, Alkaline Phosphatase 417H, Pro-B-Type Natriuretic Peptide > 18859H, Total Protein 5.7L, Albumin 2.0L, Random Gentamicin Level 1.9 Height (Feet): 5 Height (Inches): 4.00 Weight (Pounds): 150 General Appearance: lethargic EENT: normal ENT inspection Neck: supple Cardiovascular: normal rate Respiratory/Chest: decreased breath sounds Abdomen: normal bowel sounds, non tender, soft Extremities: non-tender Assessment/Plan Assessment/Plan: 1. Coronary artery disease with history of CABG. 2. Respiratory failure with history of tracheotomy. 3. Prior history of bacteremia. 4. History of prior pacemaker, status post explantation due to endovascular infection. 5. Chronic kidney disease. 6. Anemia of chronic kidney disease. 7. History of substance abuse. 8. Hyperlipidemia. 9. dysphagia with GT 10. Vitamin D deficiency. 11. History of aortic dissection and repair in 2018. 12. Paroxysmal atrial fibrillation. 13. Gastroesophageal reflux disease. 14. prei Gt cellulitis 15. pancreatitis repeat labs changed the GT to 22 Fr at the bedside >>> improved leakage on reglan s/p blood transfusion fu stool ob>>>positive on 12/03>>> will order repeat stool ob pending blood transfusion for today ppi diogenes GT wound care Inder Mccauley MD Dec 11, 2019 08:49
[2019-12-11] MEDS: Heparin 5000 units/ml inj SUBQ SCH ×2 (09:00→20:19)
[2019-12-11] MEDS: Nephrovite tab (Rena-Vite) GT SCH (09:18)
[2019-12-11] MEDS: Amantadine 100mg cap GT SCH ×2 (09:18→18:20)
[2019-12-11] MEDS: Ascorbic Acid 500mg tab GT SCH (09:18)
[2019-12-11] MEDS: Metoprolol Tartrate 12.5mg TAB ORAL SCH ×2 (09:18→20:23)
[2019-12-11] MEDS: Zinc Sulfate 220mg GT SCH (09:18)
--- NOTE | 2019-12-11 10:11 | Pulmonology Progress Note ---
Subjective ROS Limited/Unobtainable: No Interval Events: None new Constitutional: Reports: no symptoms HEENT: Repors: no symptoms Respiratory: Reports: no symptoms Cardiovascular: Reports: no symptoms Gastrointestinal/Abdominal: Reports: no symptoms Psychiatric: Reports: no symptoms Allergies: Coded Allergies: No Known Allergies (Unverified , 10/10/17) All Systems: reviewed and negative except above Objective Last 24 Hour Vital Signs Date Time Temp Pulse Resp B/P (MAP) Pulse Ox O2 Delivery O2 Flow Rate FiO2 12/11/19 09:18 65 153/69 12/11/19 09:18 66 153/69 12/11/19 07:15 57 20 50 12/11/19 05:42 137/68 12/11/19 05:12 58 20 50 12/11/19 04:00 Mechanical Ventilator 12/11/19 04:00 98.2 56 20 148/66 (93) 100 12/11/19 04:00 50 12/11/19 04:00 51 12/11/19 03:24 54 20 50 12/11/19 00:52 67 20 50 12/11/19 00:01 171/100 12/11/19 00:00 98.4 65 20 171/100 (123) 98 12/11/19 00:00 50 12/11/19 00:00 Mechanical Ventilator 12/10/19 23:36 71 12/10/19 23:34 67 12/10/19 23:14 64 20 50 12/10/19 21:17 74 20 50 12/10/19 21:11 79 170/88 12/10/19 20:00 50 12/10/19 20:00 Mechanical Ventilator 12/10/19 20:00 65 12/10/19 20:00 97.5 60 20 164/71 (102) 98 12/10/19 19:44 164/71 12/10/19 18:56 63 20 50 12/10/19 18:30 59 157/68 12/10/19 17:10 59 23 50 12/10/19 16:00 50 12/10/19 16:00 98.2 63 20 157/68 (97) 95 12/10/19 16:00 Mechanical Ventilator 12/10/19 16:00 65 12/10/19 15:00 59 20 50 12/10/19 13:40 55 21 50 12/10/19 12:00 Mechanical Ventilator 12/10/19 12:00 50 12/10/19 12:00 98.2 59 20 150/67 (94) 99 12/10/19 11:49 58 20 50 12/10/19 11:37 55 Intake and Output 12/10/19 12/11/19 19:00 07:00 Intake Total 760 ml 590 ml Output Total 1000 ml Balance 760 ml -410 ml Intake Free Water 360 ml 150 ml Tube Feeding 400 ml 440 ml Output Urine Total 1000 ml # Bowel Movements 1 General Appearance: no acute distress HEENT: normocephalic, status post trach Respiratory: chest wall non-tender, lungs clear Cardiovascular: normal peripheral pulses Abdomen: normal bowel sounds Laboratory Tests 12/11/19 03:35: White Blood Count 8.0, Red Blood Count 2.58L, Hemoglobin 7.1L, Hematocrit 22.2L, Mean Corpuscular Volume 86, Mean Corpuscular Hemoglobin 27.7, Mean Corpuscular Hemoglobin Concent 32.2, Red Cell Distribution Width 13.5, Platelet Count 265, Mean Platelet Volume 5.3L, Neutrophils (%) (Auto) , Lymphocytes (%) (Auto) , Monocytes (%) (Auto) , Eosinophils (%) (Auto) , Basophils (%) (Auto) , Differential Total Cells Counted 100, Neutrophils % (Manual) 66, Lymphocytes % (Manual) 30, Monocytes % (Manual) 3, Eosinophils % (Manual) 1, Basophils % (Manual) 0, Band Neutrophils 0, Platelet Estimate Adequate, Platelet Morphology Normal, Polychromasia 1+, Hypochromasia 1+, Sodium Level 137, Potassium Level 3.4L, Chloride Level 100, Carbon Dioxide Level 27, Anion Gap 10, Blood Urea Nitrogen 109H, Creatinine 3.7H, Estimat Glomerular Filtration Rate 13.1, Glucose Level 109H, Calcium Level 8.6, Phosphorus Level 4.9, Magnesium Level 2.9H, Total Bilirubin 0.3, Direct Bilirubin 0.1, Aspartate Amino Transf (AST/SGOT) 49H, Alanine Aminotransferase (ALT/SGPT) 17, Alkaline Phosphatase 417H, Pro-B-Type Natriuretic Peptide > 39247S, Total Protein 5.7L, Albumin 2.0L, Random Gentamicin Level 1.9 Current Medications Medications (Trade) Dose Ordered Sig/Penny Route PRN Reason Start Time Stop Time Status Last Admin Dose Admin Acetaminophen (Tylenol) 650 mg Q4H PRN GT Temp >100.5 11/29/19 04:30 12/29/19 04:29 12/06/19 09:14 Amantadine HCl (Symmetrel) 100 mg TWICE A DAY GT 12/07/19 18:00 01/06/20 17:59 12/11/19 09:18 Amlodipine Besylate (Norvasc) 5 mg BID GT 12/08/19 18:00 01/05/20 08:59 12/11/19 09:18 Ascorbic Acid (Vitamin C) 500 mg DAILY GT 11/29/19 09:00 12/29/19 08:59 12/11/19 09:18 Clonidine HCl (Catapres TTS-1) 1 patch ONCE A WEEK TDERMAL 12/03/19 09:00 03/02/20 08:59 12/10/19 09:43 Clotrimazole (Lotrimin) 1 applic THREE TIMES A DAY TOPIC 12/01/19 13:00 02/29/20 12:59 12/11/19 09:19 Epoetin Gelacio (Epoetin Gelacio-EPBX(NON ESRD)) 10,000 unit MON-WED-FRI SUBQ 11/29/19 21:00 02/27/20 20:59 12/09/19 20:29 Gentamicin Protocol (Gentamicin pharmacy to dose) 1 ea DAILY PRN MISC Per rx protocol 12/02/19 18:00 01/01/20 17:59 Heparin Sodium (Porcine) (Heparin 5000 units/ml) 5,000 units EVERY 12 HOURS SUBQ 11/29/19 09:00 01/13/20 08:59 12/10/19 09:45 Hydralazine HCl (Apresoline) 25 mg Q4H PRN ORAL bp over 160 syst 12/08/19 12:30 03/07/20 12:29 12/10/19 19:44 Hydralazine HCl (Apresoline) 25 mg Q8HR ORAL 12/10/19 23:30 03/09/20 23:29 12/11/19 05:42 Lansoprazole (Prevacid) 30 mg BID GT 12/08/19 18:00 12/31/19 11:59 12/11/19 09:18 Metoclopramide HCl (Reglan) 10 mg Q6H IVP 12/04/19 10:00 01/03/20 09:59 12/11/19 09:19 Metoprolol Tartrate (Lopressor) 12.5 mg Q12HR ORAL 12/03/19 21:00 03/02/20 08:59 12/11/19 09:18 Polyethylene Glycol (Miralax) 17 gm BEDTIME GT 11/29/19 21:00 12/29/19 20:59 12/10/19 21:10 Vitamin B Complex/ Vit C/Folic Acid (Nephrovite) 1 tab DAILY GT 11/29/19 09:00 12/29/19 08:59 12/11/19 09:18 Zinc Sulfate (Zinc Sulfate) 220 mg DAILY GT 11/29/19 09:00 02/27/20 08:59 12/11/19 09:18 Assessment/Plan Assessment/Plan Assessment: COVID19 neg Sepsis UTI Pleural effusion (small) PNA Low grade fever Leukocytosis,resolved Acute on chronic hypoxic resp failure JAVIER on CKD- hx of Recent MDR PnA, sp rx H/o PPM site (pocket) infection and pocket abscess 2ry to S. epi-11/2018, sp >6weeks IV vancomycin CAD s/p CABG GERD/gastritis Afib HTN Dysphagia sp GT Aortic dissection s/p repair 2017, S/p PPM Parkinson's Disease Schizophrenia Anxiety COPD Chronic resp failure s/p trach Hx of tracheal bleeding [place] resident ([facility]) Plan: -Continue empiric abx -Monitor CBC/CMP, temperatures -PEG/trach care -aspiration precautions -COVID19 isolation and testing; -s/p thoracentesis- sent fluid analysis and culture - FiO2 now 40%; Dc planning HD per renal if needed Elijah Stephen MD Dec 11, 2019 10:11
--- NOTE | 2019-12-11 11:40 | Nephrology Progress Note ---
Assessment/Plan Problem List: (1) JAVIER (acute kidney injury) (2) Renal failure (ARF), acute on chronic (3) Feeding by G-tube (4) Tracheostomy in place (5) Electrolyte imbalance (6) Anemia (7) Respiratory failure, acute and chronic (8) Elevated lipase Assessment Patient is presented with sepsis and pneumonia and UTI, hypoxia Patient has acute renal failure, possible underlying chronic kidney failure Severe anemia Electrolyte imbalances: Hyponatremia, hypo-kalemia Chronic respiratory failure, COPD exacerbation Has sacral decubitus ulcer stage IV PEG Plan December 10: Hemoglobin lower. Serum creatinine slightly higher to 3.7. I suggest patient to be transfused. And continue slow diuresis while we are monitoring renal parameters. December 09: Renal parameters reviewed. Unchanged. Clinically stable. I favor not to resort to dialysis treatment considering patient's overall condition since she is clinically improving. Upon discharge she will suggest to continue to observe renal parameters. December 08: Renal parameters unchanged. Urine output maintained. Patient slightly more alert and less edematous. Continue per current management. Potassium supplement given. Serum lipase ordered in a.m. December 07: Renal parameters essentially unchanged. Decent urine output. Patient remains edematous. Electrolyte imbalances noted. Discussed with RN. As needed blood pressure medication ordered. Continue current management. December 06: Renal parameters unchanged. Slightly lower serum sodium and potassium. IV fluid discontinued. Potassium supplement given. Creatinine clearance remains around 14/15 mL/min. Patient edematous. May require a course of dialysis treatment and ultrafiltration. Will discuss with Dr. Dong. December 05: Renal parameters unchanged. Discussed with ERASMO Echevarria. Electrolyte abnormalities addressed. Continue to monitor renal parameters. Will discuss with PMD possible need for dialysis trial. Serum lipase decrea sing. December 04: Patient started on IV fluid with sodium bicarb by Dr. Dong. So at this time we will hold the diuretics. Will follow-up renal parameters and electrolytes. Continue rest of management. Continue monitor lipase level December 03: No chemistry panel done today. Appears clinically stable. Will order renal parameters and lipase panel for tomorrow. Continue per consultants. Patient remains full code. December 02: Labs reviewed. Serum lipase decreasing. On 20 cc an hour Nepro via GT tube. Renal parameters unchanged. Urine output well maintained. Continue per consultants. White blood cells 17,000, hemoglobin 8.9. December 01: Lab reviewed. Hemoglobin higher. Serum creatinine 3.4. Creatinine clearance calculated . Serum lipase lowering. Continue per current management. November 30: Patient transfused. Hemoglobin higher. Serum sodium lower. Renal parameters unchanged. Trial of 3% saline. Continue monitor renal parameters. May require dialysis treatment depending on the how her condition evolves. Previously Consider transfusion Urine studies Adjust blood pressure medication Albumin bolus Norman catheter, intake and output Monitor renal parameters Avoid nephrotoxic's Antibiotics Per orders Subjective ROS Limited/Unobtainable: Yes Objective Objective Last 24 Hour Vital Signs Date Time Temp Pulse Resp B/P (MAP) Pulse Ox O2 Delivery O2 Flow Rate FiO2 12/11/19 09:18 65 153/69 12/11/19 09:18 66 153/69 12/11/19 07:15 57 20 50 12/11/19 05:42 137/68 12/11/19 05:12 58 20 50 12/11/19 04:00 Mechanical Ventilator 12/11/19 04:00 98.2 56 20 148/66 (93) 100 12/11/19 04:00 50 12/11/19 04:00 51 12/11/19 03:24 54 20 50 12/11/19 00:52 67 20 50 12/11/19 00:01 171/100 12/11/19 00:00 98.4 65 20 171/100 (123) 98 12/11/19 00:00 50 12/11/19 00:00 Mechanical Ventilator 12/10/19 23:36 71 12/10/19 23:34 67 12/10/19 23:14 64 20 50 12/10/19 21:17 74 20 50 12/10/19 21:11 79 170/88 12/10/19 20:00 50 12/10/19 20:00 Mechanical Ventilator 12/10/19 20:00 65 12/10/19 20:00 97.5 60 20 164/71 (102) 98 12/10/19 19:44 164/71 12/10/19 18:56 63 20 50 12/10/19 18:30 59 157/68 12/10/19 17:10 59 23 50 12/10/19 16:00 50 12/10/19 16:00 98.2 63 20 157/68 (97) 95 12/10/19 16:00 Mechanical Ventilator 12/10/19 16:00 65 12/10/19 15:00 59 20 50 12/10/19 13:40 55 21 50 12/10/19 12:00 Mechanical Ventilator 12/10/19 12:00 50 12/10/19 12:00 98.2 59 20 150/67 (94) 99 12/10/19 11:49 58 20 50 12/10/19 11:37 55 Intake and Output 12/10/19 12/11/19 19:00 07:00 Intake Total 760 ml 590 ml Output Total 1000 ml Balance 760 ml -410 ml Intake Free Water 360 ml 150 ml Tube Feeding 400 ml 440 ml Output Urine Total 1000 ml # Bowel Movements 1 Current Medications Medications (Trade) Dose Ordered Sig/Penny Route PRN Reason Start Time Stop Time Status Last Admin Dose Admin Acetaminophen (Tylenol) 650 mg Q4H PRN GT Temp >100.5 11/29/19 04:30 12/29/19 04:29 12/06/19 09:14 Amantadine HCl (Symmetrel) 100 mg TWICE A DAY GT 12/07/19 18:00 01/06/20 17:59 12/11/19 09:18 Amlodipine Besylate (Norvasc) 5 mg BID GT 12/08/19 18:00 01/05/20 08:59 12/11/19 09:18 Ascorbic Acid (Vitamin C) 500 mg DAILY GT 11/29/19 09:00 12/29/19 08:59 12/11/19 09:18 Clonidine HCl (Catapres TTS-1) 1 patch ONCE A WEEK TDERMAL 12/03/19 09:00 03/02/20 08:59 12/10/19 09:43 Clotrimazole (Lotrimin) 1 applic THREE TIMES A DAY TOPIC 12/01/19 13:00 02/29/20 12:59 12/11/19 09:19 Epoetin Gelacio (Epoetin Gelacio-EPBX(NON ESRD)) 10,000 unit MON-WED-MON SUBQ 11/29/19 21:00 02/27/20 20:59 12/09/19 20:29 Gentamicin Protocol (Gentamicin pharmacy to dose) 1 ea DAILY PRN MISC Per rx protocol 12/02/19 18:00 01/01/20 17:59 Heparin Sodium (Porcine) (Heparin 5000 units/ml) 5,000 units EVERY 12 HOURS SUBQ 11/29/19 09:00 01/13/20 08:59 12/10/19 09:45 Hydralazine HCl (Apresoline) 25 mg Q4H PRN ORAL bp over 160 syst 12/08/19 12:30 03/07/20 12:29 12/10/19 19:44 Hydralazine HCl (Apresoline) 25 mg Q8HR ORAL 12/10/19 23:30 03/09/20 23:29 12/11/19 05:42 Lansoprazole (Prevacid) 30 mg BID GT 12/08/19 18:00 12/31/19 11:59 12/11/19 09:18 Metoclopramide HCl (Reglan) 10 mg Q6H IVP 12/04/19 10:00 01/03/20 09:59 12/11/19 09:19 Metoprolol Tartrate (Lopressor) 12.5 mg Q12HR ORAL 12/03/19 21:00 03/02/20 08:59 12/11/19 09:18 Polyethylene Glycol (Miralax) 17 gm BEDTIME GT 11/29/19 21:00 12/29/19 20:59 12/10/19 21:10 Vitamin B Complex/ Vit C/Folic Acid (Nephrovite) 1 tab DAILY GT 11/29/19 09:00 12/29/19 08:59 12/11/19 09:18 Zinc Sulfate (Zinc Sulfate) 220 mg DAILY GT 11/29/19 09:00 02/27/20 08:59 12/11/19 09:18 Laboratory Tests 12/11/19 03:35: White Blood Count 8.0, Red Blood Count 2.58L, Hemoglobin 7.1L, Hematocrit 22.2L, Mean Corpuscular Volume 86, Mean Corpuscular Hemoglobin 27.7, Mean Corpuscular Hemoglobin Concent 32.2, Red Cell Distribution Width 13.5, Platelet Count 265, Mean Platelet Volume 5.3L, Neutrophils (%) (Auto) , Lymphocytes (%) (Auto) , Monocytes (%) (Auto) , Eosinophils (%) (Auto) , Basophils (%) (Auto) , Differential Total Cells Counted 100, Neutrophils % (Manual) 66, Lymphocytes % (Manual) 30, Monocytes % (Manual) 3, Eosinophils % (Manual) 1, Basophils % (Manual) 0, Band Neutrophils 0, Platelet Estimate Adequate, Platelet Morphology Normal, Polychromasia 1+, Hypochromasia 1+, Sodium Level 137, Potassium Level 3.4L, Chloride Level 100, Carbon Dioxide Level 27, Anion Gap 10, Blood Urea Nitrogen 109H, Creatinine 3.7H, Estimat Glomerular Filtration Rate 13.1, Glucose Level 109H, Calcium Level 8.6, Phosphorus Level 4.9, Magnesium Level 2.9H, Total Bilirubin 0.3, Direct Bilirubin 0.1, Aspartate Amino Transf (AST/SGOT) 49H, Alanine Aminotransferase (ALT/SGPT) 17, Alkaline Phosphatase 417H, Pro-B-Type Natriuretic Peptide > 28825K, Total Protein 5.7L, Albumin 2.0L, Random Gentamicin Level 1.9 Height (Feet): 5 Height (Inches): 4.00 Weight (Pounds): 150 General Appearance: no apparent distress Cardiovascular: normal rate Respiratory/Chest: decreased breath sounds Abdomen: soft, distended Objective No change Johnny Houston MD Dec 11, 2019 11:40
[2019-12-11 12:00] VITALS: BP 147/64
--- NOTE | 2019-12-11 13:33 | Infectious Diseases Prog Note ---
Assessment/Plan Assessment: COVID19 neg x2 (11/27 & rapid COVID PCR neg) Sepsis UTI -11/27 u/a wbc 30-40, nit neg, leuk +3; ucx ESBL P. mirablis, ESBL M. morganii Pl effusion, transudate - 11/28 Sp [place] (w: 169, PMN: 2%, L: 49% , LDH: 57, prot 2.5); cx Neg PNA -12/07 CXR: Persistent moderate left pleural effusion with associated atelectasis and/or consolidation. Interval resolution of right basilar opac ities. -12/04 CXR Stable moderate left pleural effusion with associated airspace consolidation. Increasing right basilar airspace opacity which could represent developing consolidation versus worsening atelectasis. -11/28 CXR: Resolved right pleural effusion, status post thoracentesis. No radiographically evident complication Sp cx ESBL P. mirablis (S Meropenem, Zosyn), MDR PsA (S Gentamycin) Influenza ag neg -11/27 CXR: Increasing hazy right lung diffuse opacity. Suspect at least in part due to overlying soft tissue, but developing infiltrate also possible. Persistent and slightly increased left retrocardiac consolidation and slightly increased left pleural effusion -11/27 Bcx NTD -legionella ag urine, M. IgM neg Fever , SP Leukocytosis, SP -12/02 CT abd/p wo: Study substantially limited due to lack of IV contrast and severe anasarca and moderate nonloculated ascites. Left nephroureteral stent in the decompressed left, atrophic renal collecting system. No evident urolithiasis. Incompletely evaluated chronic aortic dissection not well seen on this study due to lack of IV contrast and severe anasarca. Bilateral moderate low-attenuation, partially loculated pleural effusions with extensive passive atelectasis; correlate to exclude superimposed aspiration or pneumonia.Percutaneous gastrostomy tube. Norman catheter in decompressed urinary bladder. Likely chronic appearing right intertrochanteric hip fracture. Possible sacral decubitus ulcer, recommend direct visualization. Acute on chronic hypoxic resp failure JAVIER on CKD; improving- on previous admission Sep-Oct 2019 required HD for short period hx of Recent MDR PnA, sp rx 10/15/19 sp cx ESBL P. mirabilis, MDR P.a. ( S only to Gent) 09/22 Resp cx + MDR PsA (S-gent; I-colistin; R-levofloxacin, Zosyn, angelo) 09/16/19 Sp cx ESBL P. mirablis hx of recent UTI 09/15/19 u/a wbc tnct, nit neg, leuk +3; ucx >100k MDR P. stuarti (S Ceftriaxone, Meropenem) 10/07 u/a wbc tnct, nit neg, leuk ; ucx >100k VRE 10/15/19 u/a wbc tnct; ucx >100k ESBL P. stuarti (S ertapenem, aztreon am) H/o PPM site (pocket) infection and pocket abscess 2ry to S. epi-11/2018, sp >6weeks IV vancomycin 11/27 SP ABBIE: no evidence for vegetation on any of the valves 11/26/18 SP PPM removal: OR findings:The fibrous capsule enclosing the generator was then opened and there was a [id number] amount of yellowish fluid drainage. The generator was then removed.Atrial and ventricular leads were detached. The necrotic tissue of the pocket was then removed and the pocket was flushed with an antibiotic solution. Capsule, wound tissue and lead tip cx: Neg 2d echo: no vegetation seen US chest: 4.6 x 3.4 x 0.9 cm hypoechoic/anechoic area overlying left chest pacemaker power pack. This could represent either a discrete fluid collection or a focal area of very edematous tissue. Infected fluid pocket also possible. 11/18 Bcx 3/4 S. epi; 11/20 Bcx neg; 11/24 Bcx Neg; 11/27 Bcx Neg CAD s/p CABG GERD/gastritis Afib HTN Dysphagia sp GT Aortic dissection s/p repair 2017, S/p PPM Parkinson's Disease Schizophrenia Anxiety COPD Chronic resp failure s/p trach Hx of tracheal bleeding [place] resident ([facility]) VRE and MRSA colonized Plan: -IV Gentamycin #11/22 for MDR PsA -ok to dc off abx -12/07 SP Meropenem #10 -12/01 SP IV Vancomycin #5 - 11/28 Sp Cefepime #2 and IV Gentamycin x1 -f/u cx -Monitor CBC/CMP, temperatures -PEG/trach care -aspiration precautions -COVID19 neg x2 Subjective Allergies: Coded Allergies: No Known Allergies (Unverified , 10/10/17) afebrile no leukocytosis discharge planning Objective Last 24 Hour Vital Signs Date Time Temp Pulse Resp B/P (MAP) Pulse Ox O2 Delivery O2 Flow Rate FiO2 12/11/19 12:00 50 12/11/19 12:00 98.8 53 20 147/64 (91) 100 12/11/19 12:00 Mechanical Ventilator 12/11/19 09:18 65 153/69 12/11/19 09:18 66 153/69 12/11/19 08:00 98.8 66 20 153/69 (97) 100 12/11/19 08:00 Mechanical Ventilator 12/11/19 08:00 50 12/11/19 07:15 57 20 50 12/11/19 05:42 137/68 12/11/19 05:12 58 20 50 12/11/19 04:00 Mechanical Ventilator 12/11/19 04:00 98.2 56 20 148/66 (93) 100 12/11/19 04:00 50 12/11/19 04:00 51 12/11/19 03:24 54 20 50 12/11/19 00:52 67 20 50 12/11/19 00:01 171/100 12/11/19 00:00 98.4 65 20 171/100 (123) 98 12/11/19 00:00 50 12/11/19 00:00 Mechanical Ventilator 12/10/19 23:36 71 12/10/19 23:34 67 12/10/19 23:14 64 20 50 12/10/19 21:17 74 20 50 12/10/19 21:11 79 170/88 12/10/19 20:00 50 12/10/19 20:00 Mechanical Ventilator 12/10/19 20:00 65 12/10/19 20:00 97.5 60 20 164/71 (102) 98 12/10/19 19:44 164/71 12/10/19 18:56 63 20 50 12/10/19 18:30 59 157/68 12/10/19 17:10 59 23 50 12/10/19 16:00 50 12/10/19 16:00 98.2 63 20 157/68 (97) 95 12/10/19 16:00 Mechanical Ventilator 12/10/19 16:00 65 12/10/19 15:00 59 20 50 12/10/19 13:40 55 21 50 Height (Feet): 5 Height (Inches): 4.00 Weight (Pounds): 150 General Appearance: no acute distress HEENT: atraumatic, trach in place Respiratory/Chest: no respiratory distress Cardiovascular: regular rhythm Laboratory Tests Test 12/11/19 03:35 White Blood Count 8.0 K/UL (4.8-10.8) Red Blood Count 2.58 M/UL (4.20-5.40) L Hemoglobin 7.1 G/DL (12.0-16.0) L Hematocrit 22.2 % (37.0-47.0) L Mean Corpuscular Volume 86 FL (80-99) Mean Corpuscular Hemoglobin 27.7 PG (27.0-31.0) Mean Corpuscular Hemoglobin Concent 32.2 G/DL (32.0-36.0) Red Cell Distribution Width 13.5 % (11.6-14.8) Platelet Count 265 K/UL (150-450) Mean Platelet Volume 5.3 FL (6.5-10.1) L Neutrophils (%) (Auto) % (45.0-75.0) Lymphocytes (%) (Auto) % (20.0-45.0) Monocytes (%) (Auto) % (1.0-10.0) Eosinophils (%) (Auto) % (0.0-3.0) Basophils (%) (Auto) % (0.0-2.0) Differential Total Cells Counted 100 Neutrophils % (Manual) 66 % (45-75) Lymphocytes % (Manual) 30 % (20-45) Monocytes % (Manual) 3 % (1-10) Eosinophils % (Manual) 1 % (0-3) Basophils % (Manual) 0 % (0-2) Band Neutrophils 0 % (0-8) Platelet Estimate Adequate Platelet Morphology Normal Polychromasia 1+ Hypochromasia 1+ Sodium Level 137 MMOL/L (136-145) Potassium Level 3.4 MMOL/L (3.5-5.1) L Chloride Level 100 MMOL/L (98-107) Carbon Dioxide Level 27 MMOL/L (21-32) Anion Gap 10 mmol/L (5-15) Blood Urea Nitrogen 109 mg/dL (7-18) H Creatinine 3.7 MG/DL (0.55-1.30) H Estimat Glomerular Filtration Rate 13.1 mL/min (>60) Glucose Level 109 MG/DL (74-106) H Calcium Level 8.6 MG/DL (8.5-10.1) Phosphorus Level 4.9 MG/DL (2.5-4.9) Magnesium Level 2.9 MG/DL (1.8-2.4) H Total Bilirubin 0.3 MG/DL (0.2-1.0) Direct Bilirubin 0.1 MG/DL (0.0-0.3) Aspartate Amino Transf (AST/SGOT) 49 U/L (15-37) H Alanine Aminotransferase (ALT/SGPT) 17 U/L (12-78) Alkaline Phosphatase 417 U/L (46-116) H Pro-B-Type Natriuretic Peptide > 98657 pg/mL (0-125) H Total Protein 5.7 G/DL (6.4-8.2) L Albumin 2.0 G/DL (3.4-5.0) L Random Gentamicin Level 1.9 ug/mL Current Medications Medications (Trade) Dose Ordered Sig/Penny Route PRN Reason Start Time Stop Time Status Last Admin Dose Admin Acetaminophen (Tylenol) 650 mg Q4H PRN GT Temp >100.5 11/29/19 04:30 12/29/19 04:29 12/06/19 09:14 Amantadine HCl (Symmetrel) 100 mg TWICE A DAY GT 12/07/19 18:00 01/06/20 17:59 12/11/19 09:18 Amlodipine Besylate (Norvasc) 5 mg BID GT 12/08/19 18:00 01/05/20 08:59 12/11/19 09:18 Ascorbic Acid (Vitamin C) 500 mg DAILY GT 11/29/19 09:00 12/29/19 08:59 12/11/19 09:18 Clonidine HCl (Catapres TTS-1) 1 patch ONCE A WEEK TDERMAL 12/03/19 09:00 03/02/20 08:59 12/10/19 09:43 Clotrimazole (Lotrimin) 1 applic THREE TIMES A DAY TOPIC 12/01/19 13:00 02/29/20 12:59 12/11/19 13:09 Epoetin Gelacio (Epoetin Gelacio-EPBX(NON ESRD)) 10,000 unit MON-MON-MON SUBQ 11/29/19 21:00 02/27/20 20:59 12/09/19 20:29 Gentamicin Protocol (Gentamicin pharmacy to dose) 1 ea DAILY PRN MISC Per rx protocol 12/02/19 18:00 01/01/20 17:59 Heparin Sodium (Porcine) (Heparin 5000 units/ml) 5,000 units EVERY 12 HOURS SUBQ 11/29/19 09:00 01/13/20 08:59 12/10/19 09:45 Hydralazine HCl (Apresoline) 25 mg Q4H PRN ORAL bp over 160 syst 12/08/19 12:30 03/07/20 12:29 12/10/19 19:44 Hydralazine HCl (Apresoline) 25 mg Q8HR ORAL 12/10/19 23:30 03/09/20 23:29 12/11/19 05:42 Lansoprazole (Prevacid) 30 mg BID GT 12/08/19 18:00 12/31/19 11:59 12/11/19 09:18 Metoclopramide HCl (Reglan) 10 mg Q6H IVP 12/04/19 10:00 01/03/20 09:59 12/11/19 09:19 Metoprolol Tartrate (Lopressor) 12.5 mg Q12HR ORAL 12/03/19 21:00 03/02/20 08:59 12/11/19 09:18 Polyethylene Glycol (Miralax) 17 gm BEDTIME GT 11/29/19 21:00 12/29/19 20:59 12/10/19 21:10 Vitamin B Complex/ Vit C/Folic Acid (Nephrovite) 1 tab DAILY GT 11/29/19 09:00 12/29/19 08:59 12/11/19 09:18 Zinc Sulfate (Zinc Sulfate) 220 mg DAILY GT 11/29/19 09:00 02/27/20 08:59 12/11/19 09:18 Doreen Nino M.D. Dec 11, 2019 13:33
[2019-12-11] MEDS ORDERED: NS 275ml ONE ×2 (13:47→13:49)
--- NOTE | 2019-12-11 15:45 | Surgery Progress Note ---
Surgery Progress Note Subjective Symptoms: improved Objective Last 24 Hour Vital Signs Date Time Temp Pulse Resp B/P (MAP) Pulse Ox O2 Delivery O2 Flow Rate FiO2 12/11/19 14:53 147/64 12/11/19 13:16 62 22 50 12/11/19 12:00 59 12/11/19 12:00 50 12/11/19 12:00 98.8 53 20 147/64 (91) 100 12/11/19 12:00 Mechanical Ventilator 12/11/19 11:08 56 20 50 12/11/19 09:24 54 20 50 12/11/19 09:18 65 153/69 12/11/19 09:18 66 153/69 12/11/19 08:00 63 12/11/19 08:00 98.8 66 20 153/69 (97) 100 12/11/19 08:00 Mechanical Ventilator 12/11/19 08:00 50 12/11/19 07:15 57 20 50 12/11/19 05:42 137/68 12/11/19 05:12 58 20 50 12/11/19 04:00 Mechanical Ventilator 12/11/19 04:00 98.2 56 20 148/66 (93) 100 12/11/19 04:00 50 12/11/19 04:00 51 12/11/19 03:24 54 20 50 12/11/19 00:52 67 20 50 12/11/19 00:01 171/100 12/11/19 00:00 98.4 65 20 171/100 (123) 98 12/11/19 00:00 50 12/11/19 00:00 Mechanical Ventilator 12/10/19 23:36 71 12/10/19 23:34 67 12/10/19 23:14 64 20 50 12/10/19 21:17 74 20 50 12/10/19 21:11 79 170/88 12/10/19 20:00 50 12/10/19 20:00 Mechanical Ventilator 12/10/19 20:00 65 12/10/19 20:00 97.5 60 20 164/71 (102) 98 12/10/19 19:44 164/71 12/10/19 18:56 63 20 50 12/10/19 18:30 59 157/68 12/10/19 17:10 59 23 50 12/10/19 16:00 50 12/10/19 16:00 98.2 63 20 157/68 (97) 95 12/10/19 16:00 Mechanical Ventilator 12/10/19 16:00 65 I&O Intake and Output 12/10/19 12/11/19 19:00 07:00 Intake Total 760 ml 590 ml Output Total 1000 ml Balance 760 ml -410 ml Intake Free Water 360 ml 150 ml Tube Feeding 400 ml 440 ml Output Urine Total 1000 ml # Bowel Movements 1 Dressing: saturated Cardiovascular: RSR Respiratory: decreased breath sounds Abdomen: non-tender, present bowel sounds Extremities: no edema, no tenderness, no cyanosis Laboratory Tests Test 12/11/19 03:35 White Blood Count 8.0 K/UL (4.8-10.8) Red Blood Count 2.58 M/UL (4.20-5.40) L Hemoglobin 7.1 G/DL (12.0-16.0) L Hematocrit 22.2 % (37.0-47.0) L Mean Corpuscular Volume 86 FL (80-99) Mean Corpuscular Hemoglobin 27.7 PG (27.0-31.0) Mean Corpuscular Hemoglobin Concent 32.2 G/DL (32.0-36.0) Red Cell Distribution Width 13.5 % (11.6-14.8) Platelet Count 265 K/UL (150-450) Mean Platelet Volume 5.3 FL (6.5-10.1) L Neutrophils (%) (Auto) % (45.0-75.0) Lymphocytes (%) (Auto) % (20.0-45.0) Monocytes (%) (Auto) % (1.0-10.0) Eosinophils (%) (Auto) % (0.0-3.0) Basophils (%) (Auto) % (0.0-2.0) Differential Total Cells Counted 100 Neutrophils % (Manual) 66 % (45-75) Lymphocytes % (Manual) 30 % (20-45) Monocytes % (Manual) 3 % (1-10) Eosinophils % (Manual) 1 % (0-3) Basophils % (Manual) 0 % (0-2) Band Neutrophils 0 % (0-8) Platelet Estimate Adequate Platelet Morphology Normal Polychromasia 1+ Hypochromasia 1+ Sodium Level 137 MMOL/L (136-145) Potassium Level 3.4 MMOL/L (3.5-5.1) L Chloride Level 100 MMOL/L (98-107) Carbon Dioxide Level 27 MMOL/L (21-32) Anion Gap 10 mmol/L (5-15) Blood Urea Nitrogen 109 mg/dL (7-18) H Creatinine 3.7 MG/DL (0.55-1.30) H Estimat Glomerular Filtration Rate 13.1 mL/min (>60) Glucose Level 109 MG/DL (74-106) H Calcium Level 8.6 MG/DL (8.5-10.1) Phosphorus Level 4.9 MG/DL (2.5-4.9) Magnesium Level 2.9 MG/DL (1.8-2.4) H Total Bilirubin 0.3 MG/DL (0.2-1.0) Direct Bilirubin 0.1 MG/DL (0.0-0.3) Aspartate Amino Transf (AST/SGOT) 49 U/L (15-37) H Alanine Aminotransferase (ALT/SGPT) 17 U/L (12-78) Alkaline Phosphatase 417 U/L (46-116) H Pro-B-Type Natriuretic Peptide > 48748 pg/mL (0-125) H Total Protein 5.7 G/DL (6.4-8.2) L Albumin 2.0 G/DL (3.4-5.0) L Random Gentamicin Level 1.9 ug/mL Plan Problems: (1) Dehydration (2) Acidosis (3) Anemia (4) Depression (5) Pancreatitis Assessment & Plan: 49F leukocytosis, elevated lip, lft's noted septic. work up ongoing npo iv fluids iv abx imaging ordered lipase worsening npo pending CT panc lip / jeanne improved diet as tolerated improving DAILY ESTIMATED NEEDS: Needs based on Critical care, wound, 56.8kg 28-33 kcals/kg [id number] total kcals 1.25-2 g protein/kg 71-114 g total protein Fluid per MD NUTRITION DIAGNOSIS: * Swallowing difficulty R/T dysphagia, respiratory status as evidenced by vent dep via trach, GT Dep. * Increase kcal and pro needs r/t wound healing and wasting as evidenced by stage 4 sacral wound. CURRENT TF:Nepro @ 40ml/hr x 20 hrs ENTERAL NUTRITION RECOMMENDATIONS: Nepro @ 45ml/hr x 20 hrs to provide 900ml, 1620kcal, 73g prot, 654ml free water * Increase TF to goal of 45ml/hr x20 hrs to better meet est needs * Water flush per MD * HOB over 30 degrees ADDITIONAL RECOMMENDATIONS: * Per SNF: HT=63", KE=002swp -> rec calibrated bedscale wt (Bed reads 79.4kg) * Rec TF increase as above to better meet est needs * F/up w/ H&P * WC-> continue Vit C, ZnSO4, Nephrovite Add FRANKLIN in 4oz BID for wound care Lung bases: See below. Pleural space: Bilateral moderate low-attenuation, partially loculated pleural effusions with extensive passive atelectasis; correlate to exclude superimposed aspiration or pneumonia. Liver: Ill-defined right hepatic lobe. 2.9 cm hypodensity not well evaluated on this study. Gallbladder and bile ducts: Unremarkable. No calcified stones. No ductal dilation. Pancreas: Unremarkable. No ductal dilation. Spleen: Unremarkable. No splenomegaly. Adrenals: Unremarkable. No mass. Kidneys and ureters: Left nephroureteral stent in the decompressed left, atrophic renal collecting system. No evident urolithiasis. No hydronephrosis. Stomach and bowel: Unremarkable. No obstruction. No mucosal thickening. Intraperitoneal space: Moderate nonloculated ascites. No free air. Bones/joints: Potentially chronic appearing right intertrochanteric hip fracture. Possible sacral decubitus ulcer, recommend direct visualization. No dislocation. Soft tissues: Severe anasarca. Incompletely evaluated chronic aortic dissection not well seen on this study due to lack of IV contrast and severe anasarca. Vasculature: Descending thoracic aortic ectasia 4 cm diameter above the hiatus. No abdominal aortic aneurysm. Lymph nodes: Unremarkable. No enlarged lymph nodes. Tubes, lines and devices: Percutaneous gastrostomy tube. Norman catheter in decompressed urinary bladder. IMPRESSION: 1. Study substantially limited due to lack of IV contrast and severe anasarca and moderate nonloculated ascites. 2. Left nephroureteral stent in the decompressed left, atrophic renal collecting system. 3. No evident urolithiasis. 4. Incompletely evaluated chronic aortic dissection not well seen on this study due to lack of IV contrast and severe anasarca. 5. Bilateral moderate low-attenuation, partially loculated pleural effusions with extensive passive atelectasis; correlate to exclude superimposed aspiration or pneumonia. 6. Percutaneous gastrostomy tube. 7. Norman catheter in decompressed urinary bladder. 8. Likely chronic appearing right intertrochanteric hip fracture. 9. Possible sacral decubitus ulcer, recommend direct visualization. There is no acute intracranial hemorrhage, mass effect or cortical edema. There is no shift of the midline structures. The ventricles, cisterns and sulci are within normal limits for age. Minimal periventricular hypoattenuation is seen, a nonspecific finding. Extensive paranasal sinus disease with retention cyst partially visualized within the right maxillary sinus. Soft tissue prominence the posterior aspect of the turbinates also noted in the nasal cavity. This is not evaluated adequately or completely on this study but similar findings noted previously. IMPRESSION: No evidence of acute intracranial hemorrhage, mass effect or cortical edema. Extensive paranasal sinus disease. (6) Pleural effusion (7) Renal failure (8) Respiratory failure (9) Schizophrenia (10) Hypoxia (11) Sepsis (12) UTI (urinary tract infection) (13) Pneumonia (14) ARF (acute renal failure) (15) NSTEMI (non-ST elevated myocardial infarction) (16) Tracheostomy in place (17) Feeding by G-tube (18) JAVIER (acute kidney injury) (19) Acute encephalopathy (20) Sacral decubitus ulcer, stage IV Assessment & Plan: Pt presented on admission with Full thickness stage 4 Sacral Pressure injury which extends into R gluteal cheek. Base of wound is granular with bone exposure at base of sacrococcygeal. Pt presented on admission with tracheostomy, GT, Full Thickness Pressure Injury Sacrococcygeal.Base of wound is 40% soft necrosis, 60% noni with undermined borders(L)5.8cm x (W)5.5cm x (D)1.5cm, undermining clockwise 10-1 by 2.7cm @12o'clock.(+) Epibole along edges with scattered slough. Small area that is purple and indurated noted clockwise @7-8o'clock along borders.Small amt serous exudate noted.Mild odor noted. hyperpigmentation periwound. At L ischium are two areas of dry pink epithelial with surrounding hyperpigmentation. Both heels are boggy with [id number] erythema. Tx.Plan: Cleanse sacral wound with Saline. Loosely pack with Hydrogel impregnated kerlix. Apply Moisture Barrier Paste periwound. Cover with Optifoam drsg Daily and prn. Apply Cavilon Skin Barrier to both heels and malleoli. Cover eachsite with Optifoam drsgs. Change every 7 days and prn. Reposition at least every 2hours or as tolerated. Off-load heels with pillow. APM/Maxwell Mattress overlay. (21) Chronic respiratory failure (22) Hypokalemia (23) Ascites (24) Bacteremia (25) Hypernatremia (26) Proteinuria (27) Electrolyte imbalance (28) Pacemaker (29) ACS (acute coronary syndrome) (30) Aortic dissection, thoracic (31) Respiratory failure, acute and chronic (32) JAVIER (acute kidney injury) (33) Abrasion of lip, initial encounter (34) COPD with exacerbation (35) Elevated alkaline phosphatase level (36) Renal failure (ARF), acute on chronic (37) HCAP (healthcare-associated pneumonia) (38) Lane Alexis Dec 11, 2019 15:44
[2019-12-11 16:00] VITALS: BP 147/64
[2019-12-11 20:00] VITALS: BP 156/65
[2019-12-11] MEDS: Miralax 17gm pkt GT SCH ×2 (20:19→21:00)
[2019-12-11] MEDS: Epoetin Alfa-EPBX (NON ESRD)10,000 unit/ml vial SUBQ SCH (21:00)
[2019-12-12] VITALS: BP 148/67
[2019-12-12] MEDS ORDERED: HydrALAZINE 50mg tab GT SCH
--- NOTE | 2019-12-12 00:04 | General Progress Note ---
Subjective Constitutional: Reports: no symptoms HEENT: Reports: no symptoms Cardiovascular: Reports: no symptoms Respiratory: Reports: no symptoms Gastrointestinal/Abdominal: Reports: no symptoms Genitourinary: Reports: no symptoms Neurologic/Psychiatric: Reports: no symptoms Hematologic/Lymphatic: Reports: no symptoms Allergies: Coded Allergies: No Known Allergies (Unverified , 10/10/17) Objective Last 24 Hour Vital Signs Date Time Temp Pulse Resp B/P (MAP) Pulse Ox O2 Delivery O2 Flow Rate FiO2 12/11/19 22:54 64 20 50 12/11/19 22:41 167/78 12/11/19 21:30 56 170/73 12/11/19 21:21 58 20 50 12/11/19 20:23 52 156/65 12/11/19 20:00 98.0 52 20 156/65 (95) 100 12/11/19 20:00 50 12/11/19 20:00 Mechanical Ventilator 12/11/19 19:32 64 22 50 12/11/19 18:20 57 147/64 12/11/19 17:25 57 20 50 12/11/19 16:00 98.8 53 20 147/64 (91) 100 12/11/19 16:00 50 12/11/19 16:00 Mechanical Ventilator 12/11/19 15:40 59 12/11/19 15:14 60 20 50 12/11/19 14:53 147/64 12/11/19 13:16 62 22 50 12/11/19 12:00 59 12/11/19 12:00 50 12/11/19 12:00 98.8 53 20 147/64 (91) 100 12/11/19 12:00 Mechanical Ventilator 12/11/19 11:08 56 20 50 12/11/19 09:24 54 20 50 12/11/19 09:18 65 153/69 12/11/19 09:18 66 153/69 12/11/19 08:00 63 12/11/19 08:00 98.8 66 20 153/69 (97) 100 12/11/19 08:00 Mechanical Ventilator 12/11/19 08:00 50 12/11/19 07:15 57 20 50 12/11/19 05:42 137/68 12/11/19 05:12 58 20 50 12/11/19 04:00 Mechanical Ventilator 12/11/19 04:00 98.2 56 20 148/66 (93) 100 12/11/19 04:00 50 12/11/19 04:00 51 12/11/19 03:24 54 20 50 12/11/19 00:52 67 20 50 12/11/19 00:01 171/100 12/11/19 00:00 98.4 65 20 171/100 (123) 98 12/11/19 00:00 50 12/11/19 00:00 Mechanical Ventilator Intake and Output 12/10/19 12/11/19 19:00 07:00 Intake Total 760 ml 630 ml Output Total 1000 ml Balance 760 ml -370 ml Intake Free Water 360 ml 150 ml Tube Feeding 400 ml 480 ml Output Urine Total 1000 ml # Bowel Movements 1 Laboratory Tests 12/11/19 03:35: White Blood Count 8.0, Red Blood Count 2.58L, Hemoglobin 7.1L, Hematocrit 22.2L, Mean Corpuscular Volume 86, Mean Corpuscular Hemoglobin 27.7, Mean Corpuscular Hemoglobin Concent 32.2, Red Cell Distribution Width 13.5, Platelet Count 265, Mean Platelet Volume 5.3L, Neutrophils (%) (Auto) , Lymphocytes (%) (Auto) , Monocytes (%) (Auto) , Eosinophils (%) (Auto) , Basophils (%) (Auto) , Differential Total Cells Counted 100, Neutrophils % (Manual) 66, Lymphocytes % (Manual) 30, Monocytes % (Manual) 3, Eosinophils % (Manual) 1, Basophils % (Manual) 0, Band Neutrophils 0, Platelet Estimate Adequate, Platelet Morphology Normal, Polychromasia 1+, Hypochromasia 1+, Sodium Level 137, Potassium Level 3.4L, Chloride Level 100, Carbon Dioxide Level 27, Anion Gap 10, Blood Urea Nitrogen 109H, Creatinine 3.7H, Estimat Glomerular Filtration Rate 13.1, Glucose Level 109H, Calcium Level 8.6, Phosphorus Level 4.9, Magnesium Level 2.9H, Total Bilirubin 0.3, Direct Bilirubin 0.1, Aspartate Amino Transf (AST/SGOT) 49H, Alanine Aminotransferase (ALT/SGPT) 17, Alkaline Phosphatase 417H, Pro-B-Type Natriuretic Peptide > 84773U, Total Protein 5.7L, Albumin 2.0L, Random Gentamicin Level 1.9 Height (Feet): 5 Height (Inches): 4.00 Weight (Pounds): 150 General Appearance: WD/WN, no apparent distress, alert, lethargic EENT: normal ENT inspection Neck: supple Cardiovascular: normal rate, regular rhythm, no gallop/murmur, no JVD Respiratory/Chest: lungs clear, normal breath sounds, no respiratory distress, no accessory muscle use Abdomen: normal bowel sounds, non tender, soft, no organomegaly, no mass Extremities: non-tender Neurologic: alert, responsive Skin: warm/dry Assessment/Plan Status Narrative Patient is awake alert afebrile hemodynamically stable she was supposed to be discharged today with a blood pressure without difficulty. Did allow [facility] to take the patient back to the extended care facility medication change no Versed was initially DC'd was admitted back but even with normal neurovascular blood pressure is 153 therefore it is rising 50 mg IV piggyback every 6 hours was initiated repeat about his laboratory test will be done at a.m. if blood pressure is normal patient can be discharged back to the extended care facility. LUCAS Dong,Lucas HATFIELD Dec 12, 2019 00:04
[2019-12-12 04:00] VITALS: BP 151/63
[2019-12-12 04:37] LABS: BASOPHILS % (AUTO) 0.5 % (0.0-2.0); EOSINOPHILS % (AUTO) 1.4 % (0.0-3.0); HEMATOCRIT 29.2 % (37.0-47.0); LYMPHOCYTES % (AUTO) 20.2 % (20.0-45.0); MEAN CORPUSCULAR VOLUME 86 FL (80-99); NEUTROPHILS % (AUTO) 72.9 % (45.0-75.0); PLATELET COUNT 244 K/UL (150-450); RED BLOOD COUNT 3.41 M/UL (4.20-5.40); RED CELL DISTRIBUTION WIDTH 13.5 % (11.6-14.8); WHITE BLOOD COUNT 9.3 K/UL (4.8-10.8)
[2019-12-12 05:01] LABS: CREATININE 3.6 MG/DL (0.55-1.30); POTASSIUM 3.4 MMOL/L (3.5-5.1)
[2019-12-12] MEDS: Metoclopramide 10mg/2ml Inj IVP SCH ×2 (05:07→10:00)
[2019-12-12] MEDS: HydrALAZINE 50mg tab GT SCH ×2 (05:07→11:57)
--- NOTE | 2019-12-12 06:30 | Hematology/Onc Progress Note ---
Assessment/Plan Assessment/Plan Assessment and Recs # Leukocytosis, now with uti, though in past has had pna, pacemaker site infection and bacteremia --> is s/p pm removal and also pocket infection is better --> per cards recs in re to tach/davis --> wbc 29-->16-->17-->7 --> ABX vanc/angelo-->gent/angelo --> ID recs are noted # Anemia of chronic disease due to underlying chronic medical issues, multifactorial --> Anemia workup has been reviewed, cw acd --> No evidence of hemolysis is noted, peripheral smear has been reviewed. --> Hgb goal >7. Transfuse prn. --> Epogen started sq --> Medications have been reviewed --> low threshold for gi evaluation in case has occult + --> hgb 7.1-->7.8-->>>6.7->9.2-->8.9->8.2->8.5->7.7->7.4-->7.1-->10 --> 1 unit prbc10/17 --> gi eval as needed # Thrombocytosis is likely reactive process, is s/p infection --> plt trend 358-->361->349 --> p smear reviewed # Coagulopathy with inr 1.2 --> consider vit k/ffp as needed --> labs noted # JAVIER initially >2 --> on ivfs -> may need hd per Dr. [place] # Elevated d-dimer --> venous duplex and v/q scan neg --> negative results duplex # Dysphagia s/p peg --> as per gi # Thoracic aortic dissection --> s/p repair early 2017 # Chronic Resp failure -> s/p trach/vent # Psychiatric history on ativan/haldol # [place] resident # Dvt ppx --> heparin sq The timing of this note does not necessarily reflect the time of the patient was seen. Greatly appreciate consultation. Subjective Constitutional: Denies: no symptoms, chills, fever, malaise, weakness, other HEENT: Denies: no symptoms, eye pain, blurred vision, tearing, double vision, ear pain, ear discharge, nose pain, nose congestion, throat pain, throat swelling, mouth pain, mouth swelling, other Cardiovascular: Denies: no symptoms, chest pain, edema, irregular heart rate, lightheadedness, palpitations, syncope, other Gastrointestinal/Abdominal: Denies: no symptoms, abdomen distended, abdominal pain, black stools, tarry stools, blood in stool, constipated, diarrhea, difficulty swallowing, nausea, poor appetite, poor fluid intake, rectal bleeding, vomiting, other Genitourinary: Denies: no symptoms, burning, discharge, frequency, flank pain, hematuria, incontinence, pain, urgency, other Neurologic/Psychiatric: Denies: no symptoms, anxiety, depressed, emotional problems, headache, numbness, paresthesia, pre-existing deficit, seizure, tingling, tremors, weakness, other Hematologic/Lymphatic: Denies: no symptoms, anemia, easy bleeding, easy bruising, adenopathy, other Allergies: Coded Allergies: No Known Allergies (Unverified , 10/10/17) Subjective 12/01 on vent, with gtube and raymond, no bleeding, labs are noted 12/02 labs noted, remains on abx, dw Rn at bedside is on abx, hgb 8.9 12/03 roman Rn in am, with drainage blood from gtube site, and mouth,gi aware 12/04 on vent, hgb 8.2, no bleeding, k was given overnight 12/05 labs reviewed, on vent, no bleeding, gb 8.5, no hemolysis is seen 12/07 asymptomatic, a+o x1, no bleeding, meds reviewed, labs noted 12/08 nv, trach to vent, no bleeding, meds reviewed, no night sweats, hep sq 12/09 labs noted, no bleeding, meds reviewed, hgb 7.4, no hemolysis 12/10 labs reviewed, hgb 7.1, s/p 1 unit prbc ordered 12/11 labs noted, no bleeding, meds reviewed, hgb 10 Objective Objective Current Medications Medications (Trade) Dose Ordered Sig/Penny Route PRN Reason Start Time Stop Time Status Last Admin Dose Admin Acetaminophen (Tylenol) 650 mg Q4H PRN GT Temp >100.5 11/29/19 04:30 12/29/19 04:29 12/06/19 09:14 Amantadine HCl (Symmetrel) 100 mg TWICE A DAY GT 12/07/19 18:00 01/06/20 17:59 12/11/19 18:20 Amlodipine Besylate (Norvasc) 5 mg BID GT 12/08/19 18:00 01/05/20 08:59 12/11/19 18:20 Ascorbic Acid (Vitamin C) 500 mg DAILY GT 11/29/19 09:00 12/29/19 08:59 12/11/19 09:18 Clonidine HCl (Catapres TTS-1) 1 patch ONCE A WEEK TDERMAL 12/03/19 09:00 03/02/20 08:59 12/10/19 09:43 Clotrimazole (Lotrimin) 1 applic THREE TIMES A DAY TOPIC 12/01/19 13:00 02/29/20 12:59 12/11/19 18:20 Epoetin Gelacio (Epoetin Gelacio-EPBX(NON ESRD)) 10,000 unit MON-MON-MON SUBQ 11/29/19 21:00 02/27/20 20:59 12/09/19 20:29 Gentamicin Protocol (Gentamicin pharmacy to dose) 1 ea DAILY PRN MISC Per rx protocol 12/02/19 18:00 01/01/20 17:59 Heparin Sodium (Porcine) (Heparin 5000 units/ml) 5,000 units EVERY 12 HOURS SUBQ 11/29/19 09:00 01/13/20 08:59 12/10/19 09:45 Hydralazine HCl (Apresoline) 25 mg Q4H PRN ORAL bp over 160 syst 12/08/19 12:30 03/07/20 12:29 12/10/19 19:44 Hydralazine HCl (Apresoline) 50 mg Q6HR GT 12/12/19 06:00 03/11/20 00:00 12/12/19 05:07 Lansoprazole (Prevacid) 30 mg BID GT 12/08/19 18:00 12/31/19 11:59 12/11/19 18:20 Metoclopramide HCl (Reglan) 10 mg Q6H IVP 12/04/19 10:00 01/03/20 09:59 12/12/19 05:07 Metoprolol Tartrate (Lopressor) 12.5 mg Q12HR ORAL 12/03/19 21:00 03/02/20 08:59 12/11/19 09:18 Polyethylene Glycol (Miralax) 17 gm BEDTIME GT 11/29/19 21:00 12/29/19 20:59 12/10/19 21:10 Vitamin B Complex/ Vit C/Folic Acid (Nephrovite) 1 tab DAILY GT 11/29/19 09:00 12/29/19 08:59 12/11/19 09:18 Zinc Sulfate (Zinc Sulfate) 220 mg DAILY GT 11/29/19 09:00 02/27/20 08:59 12/11/19 09:18 Last 24 Hour Vital Signs Date Time Temp Pulse Resp B/P (MAP) Pulse Ox O2 Delivery O2 Flow Rate FiO2 12/12/19 05:07 163/63 12/12/19 04:36 52 20 50 12/12/19 04:00 50 12/12/19 04:00 55 12/12/19 04:00 Mechanical Ventilator 12/12/19 04:00 97.9 55 20 151/63 (92) 100 12/12/19 04:00 51 12/12/19 02:42 55 20 50 12/12/19 01:26 52 20 50 12/12/19 00:00 98.4 56 20 148/67 (94) 100 12/12/19 00:00 50 12/12/19 00:00 Mechanical Ventilator 12/12/19 00:00 54 12/11/19 22:54 64 20 50 12/11/19 22:41 167/78 12/11/19 21:30 56 170/73 12/11/19 21:21 58 20 50 12/11/19 20:23 52 156/65 12/11/19 20:00 98.0 52 20 156/65 (95) 100 12/11/19 20:00 50 12/11/19 20:00 Mechanical Ventilator 12/11/19 20:00 66 12/11/19 19:32 64 22 50 12/11/19 18:20 57 147/64 12/11/19 17:25 57 20 50 12/11/19 16:00 98.8 53 20 147/64 (91) 100 12/11/19 16:00 50 12/11/19 16:00 Mechanical Ventilator 12/11/19 15:40 59 12/11/19 15:14 60 20 50 12/11/19 14:53 147/64 12/11/19 13:16 62 22 50 12/11/19 12:00 59 12/11/19 12:00 50 12/11/19 12:00 98.8 53 20 147/64 (91) 100 12/11/19 12:00 Mechanical Ventilator 12/11/19 11:08 56 20 50 12/11/19 09:24 54 20 50 12/11/19 09:18 65 153/69 12/11/19 09:18 66 153/69 12/11/19 08:00 63 12/11/19 08:00 98.8 66 20 153/69 (97) 100 12/11/19 08:00 Mechanical Ventilator 12/11/19 08:00 50 12/11/19 07:15 57 20 50 12/11/19 05:42 137/68 12/11/19 05:12 58 20 50 12/11/19 04:00 Mechanical Ventilator 12/11/19 04:00 98.2 56 20 148/66 (93) 100 12/11/19 04:00 50 12/11/19 04:00 51 12/11/19 03:24 54 20 50 12/11/19 00:52 67 20 50 12/11/19 00:01 171/100 12/11/19 00:00 98.4 65 20 171/100 (123) 98 12/11/19 00:00 50 12/11/19 00:00 Mechanical Ventilator 12/10/19 23:36 71 12/10/19 23:34 67 12/10/19 23:14 64 20 50 12/10/19 21:17 74 20 50 12/10/19 21:11 79 170/88 12/10/19 20:00 50 12/10/19 20:00 Mechanical Ventilator 12/10/19 20:00 65 12/10/19 20:00 97.5 60 20 164/71 (102) 98 12/10/19 19:44 164/71 12/10/19 18:56 63 20 50 12/10/19 18:30 59 157/68 12/10/19 17:10 59 23 50 12/10/19 16:00 50 12/10/19 16:00 98.2 63 20 157/68 (97) 95 12/10/19 16:00 Mechanical Ventilator 12/10/19 16:00 65 12/10/19 15:00 59 20 50 12/10/19 13:40 55 21 50 12/10/19 12:00 Mechanical Ventilator 12/10/19 12:00 50 12/10/19 12:00 98.2 59 20 150/67 (94) 99 12/10/19 11:49 58 20 50 12/10/19 11:37 55 12/10/19 09:43 148/69 12/10/19 09:42 55 148/69 12/10/19 09:21 55 20 50 12/10/19 09:00 55 148/69 12/10/19 08:00 Mechanical Ventilator 12/10/19 08:00 50 12/10/19 08:00 98.4 56 20 148/69 (95) 95 12/10/19 07:33 64 12/10/19 07:04 58 20 50 Intake and Output 12/11/19 12/12/19 19:00 07:00 Intake Total 550 ml 290 ml Output Total 1200 ml Balance -650 ml 290 ml Intake Free Water 150 ml 50 ml Tube Feeding 400 ml 240 ml Output Urine Total 1200 ml # Bowel Movements 1 Labs Test 12/09/19 09:50 12/10/19 02:30 12/11/19 03:35 12/12/19 03:25 Prothrombin Time 12.9 SEC (9.30-11.50) Prothromb Time International Ratio 1.2 (0.9-1.1) White Blood Count 9.0 K/UL (4.8-10.8) 8.0 K/UL (4.8-10.8) 9.3 K/UL (4.8-10.8) Red Blood Count 2.68 M/UL (4.20-5.40) 2.58 M/UL (4.20-5.40) 3.41 M/UL (4.20-5.40) Hemoglobin 7.4 G/DL (12.0-16.0) 7.1 G/DL (12.0-16.0) 10.0 G/DL (12.0-16.0) Hematocrit 23.0 % (37.0-47.0) 22.2 % (37.0-47.0) 29.2 % (37.0-47.0) Mean Corpuscular Volume 86 FL (80-99) 86 FL (80-99) 86 FL (80-99) Mean Corpuscular Hemoglobin 27.7 PG (27.0-31.0) 27.7 PG (27.0-31.0) 29.4 PG (27.0-31.0) Mean Corpuscular Hemoglobin Concent 32.3 G/DL (32.0-36.0) 32.2 G/DL (32.0-36.0) 34.3 G/DL (32.0-36.0) Red Cell Distribution Width 13.7 % (11.6-14.8) 13.5 % (11.6-14.8) 13.5 % (11.6-14.8) Platelet Count 288 K/UL (150-450) 265 K/UL (150-450) 244 K/UL (150-450) Mean Platelet Volume 5.3 FL (6.5-10.1) 5.3 FL (6.5-10.1) 5.9 FL (6.5-10.1) Neutrophils (%) (Auto) % (45.0-75.0) % (45.0-75.0) 72.9 % (45.0-75.0) Lymphocytes (%) (Auto) % (20.0-45.0) % (20.0-45.0) 20.2 % (20.0-45.0) Monocytes (%) (Auto) % (1.0-10.0) % (1.0-10.0) 5.0 % (1.0-10.0) Eosinophils (%) (Auto) % (0.0-3.0) % (0.0-3.0) 1.4 % (0.0-3.0) Basophils (%) (Auto) % (0.0-2.0) % (0.0-2.0) 0.5 % (0.0-2.0) Sodium Level 136 MMOL/L (136-145) 137 MMOL/L (136-145) 138 MMOL/L (136-145) Potassium Level 3.6 MMOL/L (3.5-5.1) 3.4 MMOL/L (3.5-5.1) 3.4 MMOL/L (3.5-5.1) Chloride Level 98 MMOL/L (98-107) 100 MMOL/L (98-107) 101 MMOL/L (98-107) Carbon Dioxide Level 27 MMOL/L (21-32) 27 MMOL/L (21-32) 24 MMOL/L (21-32) Anion Gap 12 mmol/L (5-15) 10 mmol/L (5-15) 13 mmol/L (5-15) Blood Urea Nitrogen 110 mg/dL (7-18) 109 mg/dL (7-18) 107 mg/dL (7-18) Creatinine 3.5 MG/DL (0.55-1.30) 3.7 MG/DL (0.55-1.30) 3.6 MG/DL (0.55-1.30) Estimat Glomerular Filtration Rate 14.0 mL/min (>60) 13.1 mL/min (>60) 13.6 mL/min (>60) Glucose Level 90 MG/DL (74-106) 109 MG/DL (74-106) 78 MG/DL (74-106) Uric Acid 6.9 MG/DL (2.6-7.2) Calcium Level 8.2 MG/DL (8.5-10.1) 8.6 MG/DL (8.5-10.1) 9.0 MG/DL (8.5-10.1) Phosphorus Level 4.8 MG/DL (2.5-4.9) 4.9 MG/DL (2.5-4.9) Magnesium Level 2.9 MG/DL (1.8-2.4) 2.9 MG/DL (1.8-2.4) Total Bilirubin 0.3 MG/DL (0.2-1.0) 0.3 MG/DL (0.2-1.0) Aspartate Amino Transf (AST/SGOT) 44 U/L (15-37) 49 U/L (15-37) Alanine Aminotransferase (ALT/SGPT) 17 U/L (12-78) 17 U/L (12-78) Alkaline Phosphatase 387 U/L (46-116) 417 U/L (46-116) Total Protein 5.5 G/DL (6.4-8.2) 5.7 G/DL (6.4-8.2) Albumin 2.0 G/DL (3.4-5.0) 2.0 G/DL (3.4-5.0) Globulin 3.5 g/dL Albumin/Globulin Ratio 0.6 (1.0-2.7) Lipase 646 U/L (73-393) Differential Total Cells Counted 100 Neutrophils % (Manual) 66 % (45-75) Lymphocytes % (Manual) 30 % (20-45) Monocytes % (Manual) 3 % (1-10) Eosinophils % (Manual) 1 % (0-3) Basophils % (Manual) 0 % (0-2) Band Neutrophils 0 % (0-8) Platelet Estimate Adequate Platelet Morphology Normal Polychromasia 1+ Hypochromasia 1+ Direct Bilirubin 0.1 MG/DL (0.0-0.3) Pro-B-Type Natriuretic Peptide > 86577 pg/mL (0-125) Random Gentamicin Level 1.9 ug/mL Height (Feet): 5 Height (Inches): 4.00 Weight (Pounds): 150 Objective Physical Exam: Vitals: reviewed General: NAD HEENT: nc, at Neck: supple ++tracn/vent Chest: clear breath sounds bilaterally Cardiovascular: RRR, no s3, s4 Abdomen: soft, nontender, nd +gtube Extremities: no cce, normal range of motion Neuro: alert ++Evan Molina MD Dec 12, 2019 06:30
[2019-12-12 08:00] VITALS: BP 157/66
[2019-12-12] MEDS: Amantadine 100mg cap GT SCH (08:15)
[2019-12-12] MEDS: Nephrovite tab (Rena-Vite) GT SCH (08:15)
[2019-12-12] MEDS: Ascorbic Acid 500mg tab GT SCH (08:15)
[2019-12-12] MEDS: Zinc Sulfate 220mg GT SCH (08:15)
[2019-12-12] MEDS: Heparin 5000 units/ml inj SUBQ SCH (08:21)
[2019-12-12] MEDS: Metoprolol Tartrate 12.5mg TAB ORAL SCH (09:00)
--- NOTE | 2019-12-12 10:29 | Pulmonology Progress Note ---
Subjective ROS Limited/Unobtainable: Yes Interval Events: None new Constitutional: Reports: no symptoms HEENT: Repors: no symptoms Respiratory: Reports: no symptoms Cardiovascular: Reports: no symptoms Gastrointestinal/Abdominal: Reports: no symptoms Psychiatric: Reports: no symptoms Allergies: Coded Allergies: No Known Allergies (Unverified , 10/10/17) All Systems: reviewed and negative except above Objective Last 24 Hour Vital Signs Date Time Temp Pulse Resp B/P (MAP) Pulse Ox O2 Delivery O2 Flow Rate FiO2 12/12/19 09:00 53 12/12/19 08:16 54 159/67 12/12/19 07:15 57 20 50 12/12/19 05:07 163/63 12/12/19 04:36 52 20 50 12/12/19 04:00 50 12/12/19 04:00 55 12/12/19 04:00 Mechanical Ventilator 12/12/19 04:00 97.9 55 20 151/63 (92) 100 12/12/19 04:00 51 12/12/19 02:42 55 20 50 12/12/19 01:26 52 20 50 12/12/19 00:00 98.4 56 20 148/67 (94) 100 12/12/19 00:00 50 12/12/19 00:00 Mechanical Ventilator 12/12/19 00:00 54 12/11/19 22:54 64 20 50 12/11/19 22:41 167/78 12/11/19 21:30 56 170/73 12/11/19 21:21 58 20 50 12/11/19 20:23 52 156/65 12/11/19 20:00 98.0 52 20 156/65 (95) 100 12/11/19 20:00 50 12/11/19 20:00 Mechanical Ventilator 12/11/19 20:00 66 12/11/19 19:32 64 22 50 12/11/19 18:20 57 147/64 12/11/19 17:25 57 20 50 12/11/19 16:00 98.8 53 20 147/64 (91) 100 12/11/19 16:00 50 12/11/19 16:00 Mechanical Ventilator 12/11/19 15:40 59 12/11/19 15:14 60 20 50 12/11/19 14:53 147/64 12/11/19 13:16 62 22 50 12/11/19 12:00 59 12/11/19 12:00 50 12/11/19 12:00 98.8 53 20 147/64 (91) 100 12/11/19 12:00 Mechanical Ventilator 12/11/19 11:08 56 20 50 Intake and Output 12/11/19 12/12/19 19:00 07:00 Intake Total 550 ml 500 ml Output Total 1200 ml 1000 ml Balance -650 ml -500 ml Intake Free Water 150 ml 100 ml Tube Feeding 400 ml 400 ml Output Urine Total 1200 ml 1000 ml # Bowel Movements 1 General Appearance: no acute distress HEENT: normocephalic, status post trach Respiratory: chest wall non-tender, lungs clear Cardiovascular: normal peripheral pulses Abdomen: normal bowel sounds Laboratory Tests 12/12/19 03:25: White Blood Count 9.3, Red Blood Count 3.41L, Hemoglobin 10.0#L, Hematocrit 29.2#L, Mean Corpuscular Volume 86, Mean Corpuscular Hemoglobin 29.4, Mean Corpuscular Hemoglobin Concent 34.3, Red Cell Distribution Width 13.5, Platelet Count 244, Mean Platelet Volume 5.9L, Neutrophils (%) (Auto) 72.9, Lymphocytes (%) (Auto) 20.2, Monocytes (%) (Auto) 5.0, Eosinophils (%) (Auto) 1.4, Basophils (%) (Auto) 0.5, Sodium Level 138, Potassium Level 3.4L, Chloride Level 101, Carbon Dioxide Level 24, Anion Gap 13, Blood Urea Nitrogen 107H, Creatinine 3.6H , Estimat Glomerular Filtration Rate 13.6, Glucose Level 78, Calcium Level 9.0 Current Medications Medications (Trade) Dose Ordered Sig/Penny Route PRN Reason Start Time Stop Time Status Last Admin Dose Admin Acetaminophen (Tylenol) 650 mg Q4H PRN GT Temp >100.5 11/29/19 04:30 12/29/19 04:29 12/06/19 09:14 Amantadine HCl (Symmetrel) 100 mg TWICE A DAY GT 12/07/19 18:00 01/06/20 17:59 12/12/19 08:15 Amlodipine Besylate (Norvasc) 5 mg BID GT 12/08/19 18:00 01/05/20 08:59 12/12/19 08:16 Ascorbic Acid (Vitamin C) 500 mg DAILY GT 11/29/19 09:00 12/29/19 08:59 12/12/19 08:15 Clonidine HCl (Catapres TTS-1) 1 patch ONCE A WEEK TDERMAL 12/03/19 09:00 03/02/20 08:59 12/10/19 09:43 Clotrimazole (Lotrimin) 1 applic THREE TIMES A DAY TOPIC 12/01/19 13:00 02/29/20 12:59 12/12/19 09:03 Epoetin Gelacio (Epoetin Gelacio-EPBX(NON ESRD)) 10,000 unit MON-MON-MON SUBQ 11/29/19 21:00 02/27/20 20:59 12/09/19 20:29 Heparin Sodium (Porcine) (Heparin 5000 units/ml) 5,000 units EVERY 12 HOURS SUBQ 11/29/19 09:00 01/13/20 08:59 12/12/19 08:21 Hydralazine HCl (Apresoline) 25 mg Q4H PRN ORAL bp over 160 syst 12/08/19 12:30 03/07/20 12:29 12/10/19 19:44 Hydralazine HCl (Apresoline) 50 mg Q6HR GT 12/12/19 06:00 03/11/20 00:00 12/12/19 05:07 Lansoprazole (Prevacid) 30 mg BID GT 12/08/19 18:00 12/31/19 11:59 12/12/19 08:15 Metoclopramide HCl (Reglan) 10 mg Q6H IVP 12/04/19 10:00 01/03/20 09:59 12/12/19 05:07 Metoprolol Tartrate (Lopressor) 12.5 mg Q12HR ORAL 12/03/19 21:00 03/02/20 08:59 12/11/19 09:18 Polyethylene Glycol (Miralax) 17 gm BEDTIME GT 11/29/19 21:00 12/29/19 20:59 12/10/19 21:10 Vitamin B Complex/ Vit C/Folic Acid (Nephrovite) 1 tab DAILY GT 11/29/19 09:00 12/29/19 08:59 12/12/19 08:15 Zinc Sulfate (Zinc Sulfate) 220 mg DAILY GT 11/29/19 09:00 02/27/20 08:59 12/12/19 08:15 Assessment/Plan Assessment/Plan Assessment: COVID19 neg Sepsis UTI Pleural effusion (small) PNA Low grade fever Leukocytosis,resolved Acute on chronic hypoxic resp failure JAVIER on CKD- hx of Recent MDR PnA, sp rx H/o PPM site (pocket) infection and pocket abscess 2ry to S. epi-11/2018, sp >6weeks IV vancomycin CAD s/p CABG GERD/gastritis Afib HTN Dysphagia sp GT Aortic dissection s/p repair 2017, S/p PPM Parkinson's Disease Schizophrenia Anxiety COPD Chronic resp failure s/p trach Hx of tracheal bleeding [place] resident ([facility]) Plan: -Continue empiric abx -Monitor CBC/CMP, temperatures -PEG/trach care -aspiration precautions -COVID19 isolation and testing; -s/p thoracentesis- sent fluid analysis and culture - FiO2 now 40%; Dc planning HD per renal if needed Elijah Stephen MD Dec 12, 2019 10:29
[2019-12-12] MEDS: HydrALAZINE 25mg tab ORAL PRN (10:46)
[2019-12-12 12:00] VITALS: BP 153/60
[2019-12-12] MEDS ORDERED: Minoxidil 10mg tab GT SCH (12:00)
[2019-12-12] MEDS ORDERED: Minoxidil 2.5mg tab GT PRN ×2 (12:01→12:15)
--- NOTE | 2019-12-12 12:03 | Nephrology Progress Note ---
Assessment/Plan Problem List: (1) JAVIER (acute kidney injury) (2) Renal failure (ARF), acute on chronic (3) Feeding by G-tube (4) Tracheostomy in place (5) Electrolyte imbalance (6) Anemia (7) Respiratory failure, acute and chronic (8) Elevated lipase Assessment Patient is presented with sepsis and pneumonia and UTI, hypoxia Patient has acute renal failure, possible underlying chronic kidney failure Severe anemia Electrolyte imbalances: Hyponatremia, hypo-kalemia Chronic respiratory failure, COPD exacerbation Has sacral decubitus ulcer stage IV PEG Plan December 11: Change as needed blood pressure medication to minoxidil. Hemoglobin higher after transfusion. Serum creatinine slightly lower. Stable from renal standpoint of view. December 10: Hemoglobin lower. Serum creatinine slightly higher to 3.7. I sugg est patient to be transfused. And continue slow diuresis while we are monitoring renal parameters. December 09: Renal parameters reviewed. Unchanged. Clinically stable. I favor not to resort to dialysis treatment considering patient's overall condition since she is clinically improving. Upon discharge she will suggest to continue to observe renal parameters. December 08: Renal parameters unchanged. Urine output maintained. Patient slightly more alert and less edematous. Continue per current management. Potassium supplement given. Serum lipase ordered in a.m. December 07: Renal parameters essentially unchanged. Decent urine output. Patient remains edematous. Electrolyte imbalances noted. Discussed with RN. As needed blood pressure medication ordered. Continue current management. December 06: Renal parameters unchanged. Slightly lower serum sodium and potassium. IV fluid discontinued. Potassium supplement given. Creatinine clearance remains around 14/15 mL/min. Patient edematous. May require a course of dialysis treatment and ultrafiltration. Will discuss with Dr. Dong. December 05: Renal parameters unchanged. Discussed with ERASMO Echevarria. Electrolyte abnormalities addressed. Continue to monitor renal parameters. Will discuss with PMD possible need for dialysis trial. Serum lipase decreasing. December 04: Patient started on IV fluid with sodium bicarb by Dr. Dong. So at this time we will hold the diuretics. Will follow-up renal parameters and electrolytes. Continue rest of management. Continue monitor lipase level December 03: No chemistry panel done today. Appears clinically stable. Will order renal parameters and lipase panel for tomorrow. Continue per consultants. Patient remains full code. December 02: Labs reviewed. Serum lipase decreasing. On 20 cc an hour Nepro via GT tube. Renal parameters unchanged. Urine output well maintained. Continue per consultants. White blood cells 17,000, hemoglobin 8.9. December 01: Lab reviewed. Hemoglobin higher. Serum creatinine 3.4. Creatinine clearance calculated . Serum lipase lowering. Continue per current management. November 30: Patient transfused. Hemoglobin higher. Serum sodium lower. Renal parameters unchanged. Trial of 3% saline. Continue monitor renal parameters. May require dialysis treatment depending on the how her condition evolves. Previously Consider transfusion Urine studies Adjust blood pressure medication Albumin bolus Norman catheter, intake and output Monitor renal parameters Avoid nephrotoxic's Antibiotics Per orders Subjective ROS Limited/Unobtainable: Yes Objective Objective Last 24 Hour Vital Signs Date Time Temp Pulse Resp B/P (MAP) Pulse Ox O2 Delivery O2 Flow Rate FiO2 12/12/19 11:57 153/64 12/12/19 10:46 162/70 12/12/19 10:33 52 21 50 12/12/19 09:04 50 20 50 12/12/19 09:00 53 12/12/19 08:16 54 159/67 12/12/19 08:00 50 12/12/19 08:00 48 12/12/19 08:00 98.3 53 20 157/66 (96) 100 12/12/19 08:00 Mechanical Ventilator 12/12/19 07:15 57 20 50 12/12/19 05:07 163/63 12/12/19 04:36 52 20 50 12/12/19 04:00 50 12/12/19 04:00 55 12/12/19 04:00 Mechanical Ventilator 12/12/19 04:00 97.9 55 20 151/63 (92) 100 12/12/19 04:00 51 12/12/19 02:42 55 20 50 12/12/19 01:26 52 20 50 12/12/19 00:00 98.4 56 20 148/67 (94) 100 12/12/19 00:00 50 12/12/19 00:00 Mechanical Ventilator 12/12/19 00:00 54 12/11/19 22:54 64 20 50 12/11/19 22:41 167/78 12/11/19 21:30 56 170/73 12/11/19 21:21 58 20 50 12/11/19 20:23 52 156/65 12/11/19 20:00 98.0 52 20 156/65 (95) 100 12/11/19 20:00 50 12/11/19 20:00 Mechanical Ventilator 12/11/19 20:00 66 12/11/19 19:32 64 22 50 12/11/19 18:20 57 147/64 12/11/19 17:25 57 20 50 12/11/19 16:00 98.8 53 20 147/64 (91) 100 12/11/19 16:00 50 12/11/19 16:00 Mechanical Ventilator 12/11/19 15:40 59 12/11/19 15:14 60 20 50 12/11/19 14:53 147/64 12/11/19 13:16 62 22 50 Intake and Output 12/11/19 12/12/19 19:00 07:00 Intake Total 550 ml 500 ml Output Total 1200 ml 1000 ml Balance -650 ml -500 ml Intake Free Water 150 ml 100 ml Tube Feeding 400 ml 400 ml Output Urine Total 1200 ml 1000 ml # Bowel Movements 1 Current Medications Medications (Trade) Dose Ordered Sig/Penny Route PRN Reason Start Time Stop Time Status Last Admin Dose Admin Acetaminophen (Tylenol) 650 mg Q4H PRN GT Temp >100.5 11/29/19 04:30 12/29/19 04:29 12/06/19 09:14 Amantadine HCl (Symmetrel) 100 mg TWICE A DAY GT 12/07/19 18:00 01/06/20 17:59 12/12/19 08:15 Amlodipine Besylate (Norvasc) 5 mg BID GT 12/08/19 18:00 01/05/20 08:59 12/12/19 08:16 Ascorbic Acid (Vitamin C) 500 mg DAILY GT 11/29/19 09:00 12/29/19 08:59 12/12/19 08:15 Clonidine HCl (Catapres TTS-1) 1 patch ONCE A WEEK TDERMAL 12/03/19 09:00 03/02/20 08:59 12/10/19 09:43 Clotrimazole (Lotrimin) 1 applic THREE TIMES A DAY TOPIC 12/01/19 13:00 02/29/20 12:59 12/12/19 12:01 Epoetin Gelacio (Epoetin Gelacio-EPBX(NON ESRD)) 10,000 unit MON-MON-MON SUBQ 11/29/19 21:00 02/27/20 20:59 12/09/19 20:29 Heparin Sodium (Porcine) (Heparin 5000 units/ml) 5,000 units EVERY 12 HOURS SUBQ 11/29/19 09:00 01/13/20 08:59 12/12/19 08:21 Hydralazine HCl (Apresoline) 50 mg Q6HR GT 12/12/19 06:00 03/11/20 00:00 12/12/19 11:57 Lansoprazole (Prevacid) 30 mg BID GT 12/08/19 18:00 12/31/19 11:59 12/12/19 08:15 Metoclopramide HCl (Reglan) 10 mg Q6H IVP 12/04/19 10:00 01/03/20 09:59 12/12/19 10:00 Metoprolol Tartrate (Lopressor) 12.5 mg Q12HR ORAL 12/03/19 21:00 03/02/20 08:59 12/11/19 09:18 Minoxidil (Loniten) 2.5 mg Q4H PRN GT bp over 160 syst 12/12/19 12:01 03/11/20 12:00 Minoxidil (Loniten) 10 mg ONCE ONCE GT 12/12/19 12:00 12/12/19 12:01 UNV Polyethylene Glycol (Miralax) 17 gm BEDTIME GT 11/29/19 21:00 12/29/19 20:59 12/10/19 21:10 Vitamin B Complex/ Vit C/Folic Acid (Nephrovite) 1 tab DAILY GT 11/29/19 09:00 12/29/19 08:59 12/12/19 08:15 Zinc Sulfate (Zinc Sulfate) 220 mg DAILY GT 11/29/19 09:00 02/27/20 08:59 12/12/19 08:15 Laboratory Tests 12/12/19 03:25: White Blood Count 9.3, Red Blood Count 3.41L, Hemoglobin 10.0#L, Hematocrit 29.2#L, Mean Corpuscular Volume 86, Mean Corpuscular Hemoglobin 29.4, Mean Corpuscular Hemoglobin Concent 34.3, Red Cell Distribution Width 13.5, Platelet Count 244, Mean Platelet Volume 5.9L, Neutrophils (%) (Auto) 72.9, Lymphocytes (%) (Auto) 20.2, Monocytes (%) (Auto) 5.0, Eosinophils (%) (Auto) 1.4, Basophils (%) (Auto) 0.5, Sodium Level 138, Potassium Level 3.4L, Chloride Level 101, Carbon Dioxide Level 24, Anion Gap 13, Blood Urea Nitrogen 107H, Creatinine 3.6H , Estimat Glomerular Filtration Rate 13.6, Glucose Level 78, Calcium Level 9.0 Height (Feet): 5 Height (Inches): 4.00 Weight (Pounds): 150 General Appearance: no apparent distress EENT: other - Trach to vent Cardiovascular: bradycardia Respiratory/Chest: decreased breath sounds Abdomen: distended Objective No change Johnny Houston MD Dec 12, 2019 12:03
--- NOTE | 2019-12-12 12:09 | General Progress Note ---
Subjective ROS Limited/Unobtainable: No Allergies: Coded Allergies: No Known Allergies (Unverified , 10/10/17) Objective Last 24 Hour Vital Signs Date Time Temp Pulse Resp B/P (MAP) Pulse Ox O2 Delivery O2 Flow Rate FiO2 12/12/19 11:57 153/64 12/12/19 10:46 162/70 12/12/19 10:33 52 21 50 12/12/19 09:04 50 20 50 12/12/19 09:00 53 12/12/19 08:16 54 159/67 12/12/19 08:00 50 12/12/19 08:00 48 12/12/19 08:00 98.3 53 20 157/66 (96) 100 12/12/19 08:00 Mechanical Ventilator 12/12/19 07:15 57 20 50 12/12/19 05:07 163/63 12/12/19 04:36 52 20 50 12/12/19 04:00 50 12/12/19 04:00 55 12/12/19 04:00 Mechanical Ventilator 12/12/19 04:00 97.9 55 20 151/63 (92) 100 12/12/19 04:00 51 12/12/19 02:42 55 20 50 12/12/19 01:26 52 20 50 12/12/19 00:00 98.4 56 20 148/67 (94) 100 12/12/19 00:00 50 12/12/19 00:00 Mechanical Ventilator 12/12/19 00:00 54 12/11/19 22:54 64 20 50 12/11/19 22:41 167/78 12/11/19 21:30 56 170/73 12/11/19 21:21 58 20 50 12/11/19 20:23 52 156/65 12/11/19 20:00 98.0 52 20 156/65 (95) 100 12/11/19 20:00 50 12/11/19 20:00 Mechanical Ventilator 12/11/19 20:00 66 12/11/19 19:32 64 22 50 12/11/19 18:20 57 147/64 12/11/19 17:25 57 20 50 12/11/19 16:00 98.8 53 20 147/64 (91) 100 12/11/19 16:00 50 10/28/20 16:00 Mechanical Ventilator 12/11/19 15:40 59 12/11/19 15:14 60 20 50 12/11/19 14:53 147/64 12/11/19 13:16 62 22 50 Intake and Output 12/11/19 12/12/19 19:00 07:00 Intake Total 550 ml 500 ml Output Total 1200 ml 1000 ml Balance -650 ml -500 ml Intake Free Water 150 ml 100 ml Tube Feeding 400 ml 400 ml Output Urine Total 1200 ml 1000 ml # Bowel Movements 1 Laboratory Tests 12/12/19 03:25: White Blood Count 9.3, Red Blood Count 3.41L, Hemoglobin 10.0#L, Hematocrit 29.2#L, Mean Corpuscular Volume 86, Mean Corpuscular Hemoglobin 29.4, Mean Corpuscular Hemoglobin Concent 34.3, Red Cell Distribution Width 13.5, Platelet Count 244, Mean Platelet Volume 5.9L, Neutrophils (%) (Auto) 72.9, Lymphocytes (%) (Auto) 20.2, Monocytes (%) (Auto) 5.0, Eosinophils (%) (Auto) 1.4, Basophils (%) (Auto) 0.5, Sodium Level 138, Potassium Level 3.4L, Chloride Level 101, Carbon Dioxide Level 24, Anion Gap 13, Blood Urea Nitrogen 107H, Creatinine 3.6H , Estimat Glomerular Filtration Rate 13.6, Glucose Level 78, Calcium Level 9.0 Height (Feet): 5 Height (Inches): 4.00 Weight (Pounds): 150 General Appearance: lethargic EENT: normal ENT inspection Neck: supple Cardiovascular: normal rate Respiratory/Chest: decreased breath sounds Abdomen: normal bowel sounds, non tender, soft Extremities: non-tender Assessment/Plan Assessment/Plan: 1. Coronary artery disease with history of CABG. 2. Respiratory failure with history of tracheotomy. 3. Prior history of bacteremia. 4. History of prior pacemaker, status post explantation due to endovascular infection. 5. Chronic kidney disease. 6. Anemia of chronic kidney disease. 7. History of substance abuse. 8. Hyperlipidemia. 9. dysphagia with GT 10. Vitamin D deficiency. 11. History of aortic dissection and repair in 2018. 12. Paroxysmal atrial fibrillation. 13. Gastroesophageal reflux disease. 14. prei Gt cellulitis 15. pancreatitis repeat labs changed the GT to 22 Fr at the bedside >>> improved leakage on reglan s/p blood transfusion fu stool ob>>>positive on 12/03>>> will order repeat stool ob pending blood transfusion for today ppi diogenes GT wound care Inder Mccauley MD Dec 12, 2019 12:09
[2019-12-12 12:10] VITALS: BP 145/57
--- NOTE | 2019-12-12 13:03 | Surgery Progress Note ---
Surgery Progress Note Subjective Symptoms: improved, tolerating diet, passing flatus, BM Objective Last 24 Hour Vital Signs Date Time Temp Pulse Resp B/P (MAP) Pulse Ox O2 Delivery O2 Flow Rate FiO2 12/12/19 12:10 145/57 12/12/19 12:00 Mechanical Ventilator 12/12/19 12:00 98.1 48 21 153/60 (91) 100 12/12/19 12:00 50 12/12/19 11:57 153/64 12/12/19 10:46 162/70 12/12/19 10:33 52 21 50 12/12/19 09:04 50 20 50 12/12/19 09:00 53 12/12/19 08:16 54 159/67 12/12/19 08:00 50 12/12/19 08:00 48 12/12/19 08:00 98.3 53 20 157/66 (96) 100 12/12/19 08:00 Mechanical Ventilator 12/12/19 07:15 57 20 50 12/12/19 05:07 163/63 12/12/19 04:36 52 20 50 12/12/19 04:00 50 12/12/19 04:00 55 12/12/19 04:00 Mechanical Ventilator 12/12/19 04:00 97.9 55 20 151/63 (92) 100 12/12/19 04:00 51 12/12/19 02:42 55 20 50 12/12/19 01:26 52 20 50 12/12/19 00:00 98.4 56 20 148/67 (94) 100 12/12/19 00:00 50 12/12/19 00:00 Mechanical Ventilator 12/12/19 00:00 54 12/11/19 22:54 64 20 50 12/11/19 22:41 167/78 12/11/19 21:30 56 170/73 12/11/19 21:21 58 20 50 12/11/19 20:23 52 156/65 12/11/19 20:00 98.0 52 20 156/65 (95) 100 12/11/19 20:00 50 12/11/19 20:00 Mechanical Ventilator 12/11/19 20:00 66 12/11/19 19:32 64 22 50 12/11/19 18:20 57 147/64 12/11/19 17:25 57 20 50 12/11/19 16:00 98.8 53 20 147/64 (91) 100 12/11/19 16:00 50 12/11/19 16:00 Mechanical Ventilator 12/11/19 15:40 59 12/11/19 15:14 60 20 50 12/11/19 14:53 147/64 12/11/19 13:16 62 22 50 I&O Intake and Output 12/11/19 12/12/19 19:00 07:00 Intake Total 550 ml 500 ml Output Total 1200 ml 1000 ml Balance -650 ml -500 ml Intake Free Water 150 ml 100 ml Tube Feeding 400 ml 400 ml Output Urine Total 1200 ml 1000 ml # Bowel Movements 1 Dressing: saturated Cardiovascular: RSR Respiratory: clear, decreased breath sounds Abdomen: soft, non-tender, present bowel sounds Extremities: edema, no tenderness, no cyanosis Laboratory Tests Test 12/12/19 03:25 White Blood Count 9.3 K/UL (4.8-10.8) Red Blood Count 3.41 M/UL (4.20-5.40) L Hemoglobin 10.0 G/DL (12.0-16.0) #L Hematocrit 29.2 % (37.0-47.0) #L Mean Corpuscular Volume 86 FL (80-99) Mean Corpuscular Hemoglobin 29.4 PG (27.0-31.0) Mean Corpuscular Hemoglobin Concent 34.3 G/DL (32.0-36.0) Red Cell Distribution Width 13.5 % (11.6-14.8) Platelet Count 244 K/UL (150-450) Mean Platelet Volume 5.9 FL (6.5-10.1) L Neutrophils (%) (Auto) 72.9 % (45.0-75.0) Lymphocytes (%) (Auto) 20.2 % (20.0-45.0) Monocytes (%) (Auto) 5.0 % (1.0-10.0) Eosinophils (%) (Auto) 1.4 % (0.0-3.0) Basophils (%) (Auto) 0.5 % (0.0-2.0) Sodium Level 138 MMOL/L (136-145) Potassium Level 3.4 MMOL/L (3.5-5.1) L Chloride Level 101 MMOL/L (98-107) Carbon Dioxide Level 24 MMOL/L (21-32) Anion Gap 13 mmol/L (5-15) Blood Urea Nitrogen 107 mg/dL (7-18) H Creatinine 3.6 MG/DL (0.55-1.30) H Estimat Glomerular Filtration Rate 13.6 mL/min (>60) Glucose Level 78 MG/DL (74-106) Calcium Level 9.0 MG/DL (8.5-10.1) Plan Problems: (1) Dehydration (2) Acidosis (3) Anemia (4) Depression (5) Pancreatitis Assessment & Plan: 49F leukocytosis, elevated lip, lft's noted septic. work up ongoing npo iv fluids iv abx imaging ordered lipase worsening npo pending CT panc lip / jeanne improved diet as tolerated improving DAILY ESTIMATED NEEDS: Needs based on Critical care, wound, 56.8kg 28-33 kcals/kg 7054-6199 total kcals 1.25-2 g protein/kg 71-114 g total protein Fluid per MD NUTRITION DIAGNOSIS: * Swallowing difficulty R/T dysphagia, respiratory status as evidenced by vent dep via trach, GT Dep. * Increase kcal and pro needs r/t wound healing and wasting as evidenced by stage 4 sacral wound. CURRENT TF:Nepro @ 40ml/hr x 20 hrs ENTERAL NUTRITION RECOMMENDATIONS: Nepro @ 45ml/hr x 20 hrs to provide 900ml, 1620kcal, 73g prot, 654ml free water * Increase TF to goal of 45ml/hr x20 hrs to better meet est needs * Water flush per MD * HOB over 30 degrees ADDITIONAL RECOMMENDATIONS: * Per SNF: HT=63", [id number] -> rec calibrated bedscale wt (Bed reads 79.4kg) * Rec TF increase as above to better meet est needs * F/up w/ H&P * WC-> continue Vit C, ZnSO4, Nephrovite Add FRANKLIN in 4oz BID for wound care Lung bases: See below. Pleural space: Bilateral moderate low-attenuation, partially loculated pleural effusions with extensive passive atelectasis; correlate to exclude superimposed aspiration or pneumonia. Liver: Ill-defined right hepatic lobe. 2.9 cm hypodensity not well evaluated on this study. Gallbladder and bile ducts: Unremarkable. No calcified stones. No ductal dilation. Pancreas: Unremarkable. No ductal dilation. Spleen: Unremarkable. No splenomegaly. Adrenals: Unremarkable. No mass. Kidneys and ureters: Left nephroureteral stent in the decompressed left, atrophic renal collecting system. No evident urolithiasis. No hydronephrosis. Stomach and bowel: Unremarkable. No obstruction. No mucosal thickening. Intraperitoneal space: Moderate nonloculated ascites. No free air. Bones/joints: Potentially chronic appearing right intertrochanteric hip fracture. Possible sacral decubitus ulcer, recommend direct visualization. No dislocation. Soft tissues: Severe anasarca. Incompletely evaluated chronic aortic dissection not well seen on this study due to lack of IV contrast and severe anasarca. Vasculature: Descending thoracic aortic ectasia 4 cm diameter above the hiatus. No abdominal aortic aneurysm. Lymph nodes: Unremarkable. No enlarged lymph nodes. Tubes, lines and devices: Percutaneous gastrostomy tube. Norman catheter in decompressed urinary bladder. IMPRESSION: 1. Study substantially limited due to lack of IV contrast and severe anasarca and moderate nonloculated ascites. 2. Left nephroureteral stent in the decompressed left, atrophic renal collecting system. 3. No evident urolithiasis. 4. Incompletely evaluated chronic aortic dissection not well seen on this study due to lack of IV contrast and severe anasarca. 5. Bilateral moderate low-attenuation, partially loculated pleural effusions with extensive passive atelectasis; correlate to exclude superimposed aspiration or pneumonia. 6. Percutaneous gastrostomy tube. 7. Norman catheter in decompressed urinary bladder. 8. Likely chronic appearing right intertrochanteric hip fracture. 9. Possible sacral decubitus ulcer, recommend direct visualization. There is no acute intracranial hemorrhage, mass effect or cortical edema. There is no shift of the midline structures. The ventricles, cisterns and sulci are within normal limits for age. Minimal periventricular hypoattenuation is seen, a nonspecific finding. Extensive paranasal sinus disease with retention cyst partially visualized within the right maxillary sinus. Soft tissue prominence the posterior aspect of the turbinates also noted in the nasal cavity. This is not evaluated adequately or completely on this study but similar findings noted previously. IMPRESSION: No evidence of acute intracranial hemorrhage, mass effect or cortical edema. Extensive paranasal sinus disease. (6) Pleural effusion (7) Renal failure (8) Respiratory failure (9) Schizophrenia (10) Hypoxia (11) Sepsis (12) UTI (urinary tract infection) (13) Pneumonia (14) ARF (acute renal failure) (15) NSTEMI (non-ST elevated myocardial infarction) (16) Tracheostomy in place (17) Feeding by G-tube (18) JAVIER (acute kidney injury) (19) Acute encephalopathy (20) Sacral decubitus ulcer, stage IV Assessment & Plan: Pt presented on admission with Full thickness stage 4 Sacral Pressure injury which extends into R gluteal cheek. Base of wound is granular with bone exposure at base of sacrococcygeal. Pt presented on admission with tracheostomy, GT, Full Thickness Pressure Injury Sacrococcygeal.Base of wound is 40% soft necrosis, 60% noni with undermined borders(L)5.8cm x (W)5.5cm x (D)1.5cm, undermining clockwise 10-1 by 2.7cm @12o'clock.(+) Epibole along edges with scattered slough. Small area that is purple and indurated noted clockwise @7-8o'clock along borders.Small amt serous exudate noted.Mild odor noted. hyperpigmentation periwound. At L ischium are two areas of dry pink epithelial with surrounding hyperpigmentation. Both heels are boggy with [id number] erythema. Tx.Plan: Cleanse sacral wound with Saline. Loosely pack with Hydrogel impregnated kerlix. Apply Moisture Barrier Paste periwound. Cover with Optifoam drsg Daily and prn. Apply Cavilon Skin Barrier to both heels and malleoli. Cover eachsite with Optifoam drsgs. Change every 7 days and prn. Reposition at least every 2hours or as tolerated. Off-load heels with pillow. APM/Maxwell Mattress overlay. DAILY ESTIMATED NEEDS: Needs based on Critical care, wound, renal dysfunction 56.8kg 28-33 kcals/kg 1804-6177 total kcals 1-1.5 g protein/kg 57-86 g total protein Fluid per MD NUTRITION DIAGNOSIS: * Swallowing difficulty R/T dysphagia, respiratory status as evidenced by vent dep via trach, GT Dep. * Increase kcal and pro needs r/t wound healing and wasting as evidenced by stage 4 sacral wound. CURRENT TF:Nepro @ 40ml/hr x 20 hrs at goal ENTERAL NUTRITION RECOMMENDATIONS: Nepro @ 45ml/hr x 20 hrs to provide 900ml, 1620kcal, 73g +11g prot, 654ml free water * As medically appropriate, increase goal rate to 45ml/hr x 20hrs to better meet needs. * Water flush per MD * HOB over 30 degrees ADDITIONAL RECOMMENDATIONS: * Per SNF: HT=63", [id number] -> rec calibrated bedscale wt (Bed reads 79.4kg->now 72.35kg) * Monitor lipase/amylase, TF tolerance : lipase trending down * WC-> continue Vit C, ZnSO4, Nephrovite Add FRANKLIN in 4oz BID for wound care * Monitor renal fxn and lytes, monitor for possible HD initiation -> elev phos: rec adding phos binders (21) Chronic respiratory failure (22) Hypokalemia (23) Ascites (24) Bacteremia (25) Hypernatremia (26) Proteinuria (27) Electrolyte imbalance (28) Pacemaker (29) ACS (acute coronary syndrome) (30) Aortic dissection, thoracic (31) Respiratory failure, acute and chronic (32) JAVIER (acute kidney injury) (33) Abrasion of lip, initial encounter (34) COPD with exacerbation (35) Elevated alkaline phosphatase level (36) Renal failure (ARF), acute on chronic (37) HCAP (healthcare-associated pneumonia) (38) Lane Alexis Dec 12, 2019 13:03
--- NOTE | 2019-12-12 13:37 | Infectious Diseases Prog Note ---
Assessment/Plan Assessment: COVID19 neg x2 (11/27 & rapid COVID PCR neg) Sepsis UTI, sp rx -11/27 u/a wbc 30-40, nit neg, leuk +3; ucx ESBL P. mirablis, ESBL M. morganii Pl effusion, transudate - 11/28 Sp [place] (w: 169, PMN: 2%, L: 49% , LDH: 57, prot 2.5); cx Neg PNA, sp rx -12/07 CXR: Persistent moderate left pleural effusion with associated atelectasis and/or consolidation. Interval resolution of right basilar opacities. -12/04 CXR Stable moderate left pleural effusion with associated airspace consolidation. Increasing right basilar airspace opacity which could represent developing consolidation versus worsening atelectasis. -11/28 CXR: Resolved right pleural effusion, status post thoracentesis. No radiographically evident complication Sp cx ESBL P. mirablis (S Meropenem, Zosyn), MDR PsA (S Gentamycin) Influenza ag neg -11/27 CXR: Increasing hazy right lung diffuse opacity. Suspect at least in part due to overlying soft tissue, but developing infiltrate also possible. Persistent and slightly increased left retrocardiac consolidation and slightly increased left pleural effusion -11/27 Bcx NTD -legionella ag urine, M. IgM neg Fever , SP Leukocytosis, SP -12/02 CT abd/p wo: Study substantially limited due to lack of IV contrast and severe anasarca and moderate nonloculated ascites. Left nephroureteral stent in the decompressed left, atrophic renal collecting system. No evident urolithiasis. Incompletely evaluated chronic aortic dissection not well seen on this study due to lack of IV contrast and severe anasarca. Bilateral moderate low-attenuation, partially loculated pleural effusions with extensive passive atelectasis; correlate to exclude superimposed aspiration or pneumonia.Percutaneous gastrostomy tube. Norman catheter in decompressed urinary bladder. Likely chronic appearing right intertrochanteric hip fracture. Possible sacral decubitus ulcer, recommend direct visualization. Acute on chronic hypoxic resp failure JAVIER on CKD; improving- on previous admission Sep-Oct 2019 required HD for short period hx of Recent MDR PnA, sp rx 10/15/19 sp cx ESBL P. mirabilis, MDR P.a. ( S only to Gent) 09/22 Resp cx + MDR PsA (S-gent; I-colistin; R-levofloxacin, Zosyn, angelo) 09/16/19 Sp cx ESBL P. mirablis hx of recent UTI 09/15/19 u/a wbc tnct, nit neg, leuk +3; ucx >100k MDR P. stuarti (S Ceftriaxone, Meropenem) 10/07 u/a wbc tnct, nit neg, leuk ; ucx >100k VRE 10/15/19 u/a wbc tnct; ucx >100k ESBL P. stuarti (S ertapenem, aztreonam) H/o PPM site (pocket) infection and pocket abscess 2ry to S. epi-11/2018, sp >6weeks IV vancomycin 11/27 SP ABBIE: no evidence for vegetation on any of the valves 11/26/18 SP PPM removal: OR findings:The fibrous capsule enclosing the ge nerator was then opened and there was a duzyf-an-udqpalie amount of yellowish fluid drainage. The generator was then removed.Atrial and ventricular leads were detached. The necrotic tissue of the pocket was then removed and the pocket was flushed with an antibiotic solution. Capsule, wound tissue and lead tip cx: Neg 2d echo: no vegetation seen US chest: 4.6 x 3.4 x 0.9 cm hypoechoic/anechoic area overlying left chest pacemaker power pack. This could represent either a discrete fluid collection or a focal area of very edematous tissue. Infected fluid pocket also possible. 11/18 Bcx 3/4 S. epi; 11/20 Bcx neg; 11/24 Bcx Neg; 11/27 Bcx Neg CAD s/p CABG GERD/gastritis Afib HTN Dysphagia sp GT Aortic dissection s/p repair 2017, S/p PPM Parkinson's Disease Schizophrenia Anxiety COPD Chronic resp failure s/p trach Hx of tracheal bleeding [place] resident ([facility]) VRE and MRSA colonized Plan: -Continue to monitor off abx -12/10 SP IV Gentamycin #10 -12/07 SP Meropenem # -12/01 SP IV Vancomycin #5 - 11/28 Sp Cefepime #2 and IV Gentamycin x1 -f/u cx -Monitor CBC/CMP, temperatures -PEG/trach care -aspiration precautions -COVID19 neg x2 Subjective Allergies: Coded Allergies: No Known Allergies (Unverified , 10/10/17) afebrile no leukocytosis discharge planning off abx Objective Last 24 Hour Vital Signs Date Time Temp Pulse Resp B/P (MAP) Pulse Ox O2 Delivery O2 Flow Rate FiO2 12/12/19 12:10 145/57 12/12/19 12:00 Mechanical Ventilator 12/12/19 12:00 98.1 48 21 153/60 (91) 100 12/12/19 12:00 50 12/12/19 11:57 153/64 12/12/19 10:46 162/70 12/12/19 10:33 52 21 50 12/12/19 09:04 50 20 50 12/12/19 09:00 53 12/12/19 08:16 54 159/67 12/12/19 08:00 50 12/12/19 08:00 48 12/12/19 08:00 98.3 53 20 157/66 (96) 100 12/12/19 08:00 Mechanical Ventilator 12/12/19 07:15 57 20 50 12/12/19 05:07 163/63 12/12/19 04:36 52 20 50 12/12/19 04:00 50 12/12/19 04:00 55 12/12/19 04:00 Mechanical Ventilator 12/12/19 04:00 97.9 55 20 151/63 (92) 100 12/12/19 04:00 51 12/12/19 02:42 55 20 50 12/12/19 01:26 52 20 50 12/12/19 00:00 98.4 56 20 148/67 (94) 100 12/12/19 00:00 50 12/12/19 00:00 Mechanical Ventilator 12/12/19 00:00 54 12/11/19 22:54 64 20 50 12/11/19 22:41 167/78 12/11/19 21:30 56 170/73 12/11/19 21:21 58 20 50 12/11/19 20:23 52 156/65 12/11/19 20:00 98.0 52 20 156/65 (95) 100 12/11/19 20:00 50 12/11/19 20:00 Mechanical Ventilator 12/11/19 20:00 66 12/11/19 19:32 64 22 50 12/11/19 18:20 57 147/64 12/11/19 17:25 57 20 50 12/11/19 16:00 98.8 53 20 147/64 (91) 100 12/11/19 16:00 50 12/11/19 16:00 Mechanical Ventilator 12/11/19 15:40 59 12/11/19 15:14 60 20 50 12/11/19 14:53 147/64 Height (Feet): 5 Height (Inches): 4.00 Weight (Pounds): 150 General Appearance: no acute distress HEENT: atraumatic, trach in place Respiratory/Chest: no respiratory distress Cardiovascular: regular rhythm Laboratory Tests Test 12/12/19 03:25 White Blood Count 9.3 K/UL (4.8-10.8) Red Blood Count 3.41 M/UL (4.20-5.40) L Hemoglobin 10.0 G/DL (12.0-16.0) #L Hematocrit 29.2 % (37.0-47.0) #L Mean Corpuscular Volume 86 FL (80-99) Mean Corpuscular Hemoglobin 29.4 PG (27.0-31.0) Mean Corpuscular Hemoglobin Concent 34.3 G/DL (32.0-36.0) Red Cell Distribution Width 13.5 % (11.6-14.8) Platelet Count 244 K/UL (150-450) Mean Platelet Volume 5.9 FL (6.5-10.1) L Neutrophils (%) (Auto) 72.9 % (45.0-75.0) Lymphocytes (%) (Auto) 20.2 % (20.0-45.0) Monocytes (%) (Auto) 5.0 % (1.0-10.0) Eosinophils (%) (Auto) 1.4 % (0.0-3.0) Basophils (%) (Auto) 0.5 % (0.0-2.0) Sodium Level 138 MMOL/L (136-145) Potassium Level 3.4 MMOL/L (3.5-5.1) L Chloride Level 101 MMOL/L (98-107) Carbon Dioxide Level 24 MMOL/L (21-32) Anion Gap 13 mmol/L (5-15) Blood Urea Nitrogen 107 mg/dL (7-18) H Creatinine 3.6 MG/DL (0.55-1.30) H Estimat Glomerular Filtration Rate 13.6 mL/min (>60) Glucose Level 78 MG/DL (74-106) Calcium Level 9.0 MG/DL (8.5-10.1) Current Medications Medications (Trade) Dose Ordered Sig/Penny Route PRN Reason Start Time Stop Time Status Last Admin Dose Admin Acetaminophen (Tylenol) 650 mg Q4H PRN GT Temp >100.5 11/29/19 04:30 12/29/19 04:29 12/06/19 09:14 Amantadine HCl (Symmetrel) 100 mg TWICE A DAY GT 12/07/19 18:00 01/06/20 17:59 12/12/19 08:15 Amlodipine Besylate (Norvasc) 5 mg BID GT 12/08/19 18:00 01/05/20 08:59 12/12/19 08:16 Ascorbic Acid (Vitamin C) 500 mg DAILY GT 11/29/19 09:00 12/29/19 08:59 12/12/19 08:15 Clonidine HCl (Catapres TTS-1) 1 patch ONCE A WEEK TDERMAL 12/03/19 09:00 03/02/20 08:59 12/10/19 09:43 Clotrimazole (Lotrimin) 1 applic THREE TIMES A DAY TOPIC 12/01/19 13:00 02/29/20 12:59 12/12/19 12:01 Epoetin Gelacio (Epoetin Gelacio-EPBX(NON ESRD)) 10,000 unit MON-MON-MON SUBQ 11/29/19 21:00 02/27/20 20:59 12/09/19 20:29 Heparin Sodium (Porcine) (Heparin 5000 units/ml) 5,000 units EVERY 12 HOURS SUBQ 11/29/19 09:00 01/13/20 08:59 12/12/19 08:21 Hydralazine HCl (Apresoline) 50 mg Q6HR GT 12/12/19 06:00 03/11/20 00:00 12/12/19 11:57 Lansoprazole (Prevacid) 30 mg BID GT 12/08/19 18:00 12/31/19 11:59 12/12/19 08:15 Metoclopramide HCl (Reglan) 10 mg Q6H IVP 12/04/19 10:00 01/03/20 09:59 12/12/19 10:00 Metoprolol Tartrate (Lopressor) 12.5 mg Q12HR ORAL 12/03/19 21:00 03/02/20 08:59 12/11/19 09:18 Minoxidil (Loniten) 2.5 mg Q4H PRN GT bp over 160 syst 12/12/19 12:15 03/11/20 11:59 Minoxidil (Loniten) 10 mg ONCE GT 12/12/19 12:00 12/12/19 14:00 12/12/19 12:10 Polyethylene Glycol (Miralax) 17 gm BEDTIME GT 11/29/19 21:00 12/29/19 20:59 12/10/19 21:10 Potassium Chloride (K-Dur) 20 meq TWICE A DAY GT 12/12/19 12:00 03/11/20 11:59 12/12/19 12:10 Vitamin B Complex/ Vit C/Folic Acid (Nephrovite) 1 tab DAILY GT 11/29/19 09:00 12/29/19 08:59 12/12/19 08:15 Zinc Sulfate (Zinc Sulfate) 220 mg DAILY GT 11/29/19 09:00 02/27/20 08:59 12/12/19 08:15 Doreen Nino M.D. Dec 12, 2019 13:37
== END 2019-12-12 15:02 | DRG 720 ==
LOC: EDBD 20:25 → EMR 20:35 → 2W 20:52 → EDBEDREQ 22:04
PROC: 5A1955Z Respiratory Ventilation, Greater than 96 Consecutive Hours (ICD-10-PCS; principal; 2019-11-28)
PROC: 0W993ZZ Drainage of Right Pleural Cavity, Percutaneous Approach (ICD-10-PCS; 2019-11-29)
DX: A41.9 Sepsis, unspecified organism (principal); L89.154 Pressure ulcer of sacral region, stage 4; J18.9 Pneumonia, unspecified organism; E86.0 Dehydration; N17.9 Acute kidney failure, unspecified; N39.0 Urinary tract infection, site not specified; N18.9 Chronic kidney disease, unspecified; D63.1 Anemia in chronic kidney disease; I48.0 Paroxysmal atrial fibrillation; K85.90 Acute pancreatitis without necrosis or infection, unspecified; I13.0 Hypertensive heart and chronic kidney disease with heart failure and stage 1 through stage 4 chronic kidney disease, or unspecified chronic kidney disease; I50.9 Heart failure, unspecified; K72.90 Hepatic failure, unspecified without coma; J44.0 Chronic obstructive pulmonary disease with (acute) lower respiratory infection; I25.10 Atherosclerotic heart disease of native coronary artery without angina pectoris; Z95.1 Presence of aortocoronary bypass graft; Z74.01 Bed confinement status; F32.9 Major depressive disorder, single episode, unspecified; F20.9 Schizophrenia, unspecified; K94.22 Gastrostomy infection; L03.311 Cellulitis of abdominal wall; Z93.0 Tracheostomy status; R13.10 Dysphagia, unspecified; E87.1 Hypo-osmolality and hyponatremia; E87.6 Hypokalemia; J96.21 Acute and chronic respiratory failure with hypoxia; G20 Parkinson's disease; Z95.0 Presence of cardiac pacemaker; Z20.828 Contact with and (suspected) exposure to other viral communicable diseases; J90 Pleural effusion, not elsewhere classified; E55.9 Vitamin D deficiency, unspecified
CPT/HCPCS: 36415; 70450; 71045; 74176; 76942; 80048; 80053; 80061; 80069; 80076; 80170; 80202; 81003; 82040; 82140; 82150; 82164; 82270; 82553; 82607; 82728; 82746; 82803; 82962; 82977; 83036; 83540; 83550; 83605; 83615; 83690; 83735; 83880; 83986; 84100; 84300; 84439; 84443; 84484; 84550; 85007; 85025; 85610; 85651; 85730; 86140; 86710; 86738; 86850; 86900; 86901; 86920; 87040; 87070; 87081; 87086; 87181; 87205; 88104; 89051; 93005; 93306; 94002; 94003; 96365; 96368; 96375; 99291; J2765; J7030; J8499; U0002

== ENCOUNTER 2020-01-15 17:38 | Inpatient (IN) | payer MEDICAID ==
[~2020-01-15] VITALS: Ht 167.6 cm; Wt 68.0 kg
[~2020-01-15 17:38] MED LIST changes: +ATORVASTATIN CA10 MG GT; +ATORVASTATIN CA20 MG GT; +CALCIUM ALGINATE1 GM MC; +CARDIZEM30 M1 GT; +CLONIDINE1 EAC1 TD; +EPOGEN4000 UNIT/ SUBQ; +GEMFIBROZIL600 MG GT; +HYDROGEL3000 GM TOPIC; +HYDROMORPHONE HC2 M1 GT; +LISINOPRIL30 MG GT; +METOLAZONE2.5 MG GT; +MINOXIDIL2.5 MG GT; +MIRALAX17 G2 GT; +MULTIVITAMINS1 EAC8 GT; +NEPHROVITE1 TAB GT; +NOVOLOG100 UNITS1 SUBQ; +PRO-STAT LIQUID30 ML GT; +PROCRIT10000 UNIT SUBQ; +REGLAN5 MG GT; +RISPERDAL2 MG GT; +TYLENOL325 MG GT; +VITAMIN C500 M1 GT; +ZINC SULFATE220 M2 GT
[2020-01-15 17:40] VITALS: BP 114/78
--- NOTE | 2020-01-15 17:40 | NUR ---
ED Nurse Note: brought in by ambulace. Pt is non responsive, bagging in process. Per EMS the facility where she lives had noticed that her SPO2 in the 80's for the last two days. Attempts were made to increase her o2 but she was not responisve. RT place pt on vent SPO2 99% vitals are stable as documented. labs sent. ekg done, chest xray done
--- NOTE | 2020-01-15 17:43 | Emergency Room Report ---
History of Present Illness General Chief Complaint: Hypoxia Source: EMS Present Illness HPI Disclaimer: Please note that this report is being documented using DRAGON technology. This can lead to erroneous entry secondary to incorrect interpretation by the dictating instrument. HPI: 49-year-old female presents from long-term [facility] for evaluation of hypoxia. Patient is trach and vent dependent for chronic respiratory failure, tube feed dependent, AO x0 baseline. Report from EMS states patient required increasing oxygen levels throughout the day to maintain saturations greater than 90%. Found hypoxic at 80% on their initial evaluation. Disconnected from ventilator and bagged up to the mid 90s. Patient shows increased work of breathing and coarse breath sounds. No reported fever. Last tested for COVID- 19 on 12/29 the results of which was negative. PMH: COPD, respiratory failure, CABG, thoracic aneurysm, kidney failure, decubitus ulcer among others PSH: Trach, G-tube Allergies: Reviewed Social Hx: Reviewed Allergies: Coded Allergies: No Known Allergies (Unverified , 10/10/17) COVID-19 Screening Contact w/high risk pt: Yes Experienced COVID-19 symptoms?: No Nursing Documentation-PMH Hx Cardiac Problems: Yes - HF, Hx Hypertension: Yes Hx Pacemaker: Yes - Left upper chest Hx Diabetes: Yes Hx Cancer: No Hx Gastrointestinal Problems: Yes - gerd, gastrostomy Hx Neurological Problems: Yes - dysphagia, Hx Cerebrovascular Accident: No Hx Transient Ischemic Attacks: No Hx Dementia: No Hx Alzheimer's Disease: No Hx Parkinson's Disease: Yes Hx Meningitis: No Hx Encephalitis: No Hx Dysphasia: Yes Review of Systems All Other Systems: limited - Unable to obtain Physical Exam General: Obtunded. Actively bagged by EMS HEENT: NC/AT. EOMI. Cardiovascular: Tachycardic Resp: Trach appears in place. Active bagging by EMS. Coarse breath sounds bilaterally. No wheezing. Abdomen: Abdomen is soft, nondistended. G-tube in place without surrounding infection or leakage MSK: Normal tone and bulk. No spontaneous movement Neuro: Obtunded. GCS 3. Medical Decision Making Diagnostic Impression: Primary Impression: Anemia Additional Impressions: Hypokalemia Hyponatremia Renal failure Elevated troponin Sepsis Pancreatitis ER Course 49-year-old trach and vent dependent female presents for evaluation of hypoxia. Saturations improved. Increased PEEP on arrival and put back on ventilator. Concern for pneumonia, sepsis, mucous plug, trach malfunction among others. EKG on arrival shows sinus rhythm with a right axis but no obvious signs of acute ischemia. Chest x-ray shows trach in appropriate position. Sternotomy wires as previously demonstrated. Difficult to appreciate consolidation of the left lungs a somewhat obscured. Patient appears to be in renal failure. Sodium critically low at 103 and starting hypertonic replacement. Potassium elevated treating with calcium and insulin with glucose. Patient received broad-spectrum antibiotics as white count is returned elevated. Lipase critically elevated. Suspect urine as the source of infection. Troponin elevated. Patient admitted to Dr. Dong as he is the assigned hospitalist for her care facility. Laboratory Tests Test 01/15/20 17:48 01/15/20 17:52 01/15/20 20:55 White Blood Count 23.8 K/UL (4.8-10.8) *H Red Blood Count 2.69 M/UL (4.20-5.40) L Hemoglobin 7.3 G/DL (12.0-16.0) L Hematocrit 21.7 % (37.0-47.0) L Mean Corpuscular Volume 81 FL (80-99) Mean Corpuscular Hemoglobin 27.3 PG (27.0-31.0) Mean Corpuscular Hemoglobin Concent 33.8 G/DL (32.0-36.0) Red Cell Distribution Width 13.5 % (11.6-14.8) Platelet Count 426 K/UL (150-450) Mean Platelet Volume 4.4 FL (6.5-10.1) L Neutrophils (%) (Auto) % (45.0-75.0) Lymphocytes (%) (Auto) % (20.0-45.0) Monocytes (%) (Auto) % (1.0-10.0) Eosinophils (%) (Auto) % (0.0-3.0) Basophils (%) (Auto) % (0.0-2.0) Differential Total Cells Counted 100 Neutrophils % (Manual) 88 % (45-75) H Lymphocytes % (Manual) 8 % (20-45) L Monocytes % (Manual) 3 % (1-10) Eosinophils % (Manual) 1 % (0-3) Basophils % (Manual) 0 % (0-2) Band Neutrophils 0 % (0-8) Platelet Estimate Increased H Platelet Morphology Normal Hypochromasia 2+ Anisocytosis 1+ Microcytosis 1+ Prothrombin Time 16.3 SEC (9.30-11.50) H Prothrombin Time INR 1.5 (0.9-1.1) H Activated Partial Thromboplast Time 38 SEC (23-33) H D-Dimer 14.28 mg/L FEU (0.00-0.49) H Sodium Level 103 MMOL/L (136-145) *L Pending Potassium Level 5.4 MMOL/L (3.5-5.1) H Pending Chloride Level 66 MMOL/L (98-107) L Pending Carbon Dioxide Level 14 MMOL/L (21-32) L Pending Anion Gap 24 mmol/L (5-15) H Blood Urea Nitrogen 233 mg/dL (7-18) H Pending Creatinine 6.7 MG/DL (0.55-1.30) H Pending Estimated Glomerular Filtration Rate 6.6 mL/min (>60) Pending Glucose Level 100 MG/DL (74-106) Pending Lactic Acid Level 0.70 mmol/L (0.4-2.0) Calcium Level 10.2 MG/DL (8.5-10.1) H Pending Phosphorus Level 9.1 MG/DL (2.5-4.9) H Magnesium Level 4.1 MG/DL (1.8-2.4) H Ferritin 1132 NG/ML (8-388) H Total Bilirubin 0.5 MG/DL (0.2-1.0) Aspartate Amino Transferase (AST) 24 U/L (15-37) Alanine Aminotransferase (ALT) 10 U/L (12-78) L Alkaline Phosphatase 252 U/L (46-116) H Lactate Dehydrogenase 140 U/L (81-234) Total Creatine Kinase 87 U/L (26-308) Creatine Kinase MB 5.8 NG/ML (0.0-3.6) H Creatine Kinase MB Relative Index 6.6 Troponin I 0.299 ng/mL (0.000-0.056) C-Reactive Protein, Quantitative 21.8 mg/dL (0.00-0.90) H Pro-B-Type Natriuretic Peptide > 67645 pg/mL (0-125) H Total Protein 7.1 G/DL (6.4-8.2) Albumin 2.4 G/DL (3.4-5.0) L Globulin 4.7 g/dL Albumin/Globulin Ratio 0.5 (1.0-2.7) L Lipase > 2000 U/L (73-393) H Arterial Blood pH 7.252 (7.350-7.450) Arterial Blood Partial Pressure CO2 30.7 mmHg (35.0-45.0) L Arterial Blood Partial Pressure O2 119.1 mmHg (75.0-100.0) H Arterial Blood HCO3 13.2 mmol/L (22.0-26.0) *L Arterial Blood Oxygen Saturation 97.8 % (95-100) Arterial Blood Base Excess -12.8 (-2-2) *L Rojas Test Positive Microbiology Date/Time Source Procedure Growth Status 01/15/20 18:14 Nasal Nares - Final Complete 01/15/20 18:14 Nasal Nares - Final Complete EKG Diagnostic Results Troponin ordered: Yes When was troponin ordered?: Jan 15, 2020 EKG Time: 17:53 Rate: normal Rhythm: NSR ST Segments: no acute changes Other Impression Sinus rhythm, right axis, normal intervals, somewhat peaked T waves anteriorly Rhythm Strip Diag. Results Rhythm Strip Time: 17:53 EP Interpretation: yes Rate: 90s Rhythm: NSR, no PVC's, no ectopy Chest X-Ray Diagnostic Results Chest X-Ray Diagnostic Results : Chest X-Ray Ordered: Yes Indication: Shortness of Breath EP Interpretation: Yes Interpretation: no effusion, no pneumothorax, other - Trach in place, no pneumothorax, sternotomy wires present, atelectasis Impression: Other - Tracheostomy in place. No obvious consolidation Electronically Signed by: Electronically signed by Dr. Tariq Horton MD Disposition: ADMITTED INPATIENT Condition: Critical Tariq Horton MD Jan 15, 2020 17:43
[2020-01-15] MEDS ORDERED: dexAMETHasone 10mg/ml Inj IV ONE (17:45)
[2020-01-15] MEDS ORDERED: LISINOPRIL20 MG GT (17:47)
[2020-01-15] MEDS ORDERED: LOPID600 MG GT (17:47)
[2020-01-15] MEDS ORDERED: DOCUSATE SODIU100 MG GT (17:47)
[2020-01-15] MEDS ORDERED: KLONOPIN1 MG GT (17:47)
[2020-01-15] MEDS ORDERED: CARDIZEM30 M1 GT (17:47)
[2020-01-15] MEDS ORDERED: METOLAZONE2.5 MG GT ×2 (18:00)
[2020-01-15] MEDS ORDERED: METOCLOPRAMIDE H5 M1 ORAL (18:00)
[2020-01-15] MEDS ORDERED: RETACRIT10000 UNIT SQ (18:01)
[2020-01-15] MEDS ORDERED: NOVOLIN R100 UNIT/1 SUBQ (18:01)
[2020-01-15] MEDS ORDERED: MILK OF MA400 MG/51 GT (18:01)
[2020-01-15] MEDS ORDERED: MINOXIDIL2.5 MG GT (18:01)
[2020-01-15] MEDS ORDERED: MIRALAX17 G2 GT (18:01)
[2020-01-15] MEDS ORDERED: TRAMADOL HCL50 MG GT (18:01)
[2020-01-15 18:30] LABS: HEMATOCRIT 21.7 % (37.0-47.0); HEMOGLOBIN 7.3 G/DL (12.0-16.0); MEAN CORPUSCULAR VOLUME 81 FL (80-99); PLATELET COUNT 426 K/UL (150-450); RED BLOOD COUNT 2.69 M/UL (4.20-5.40); RED CELL DISTRIBUTION WIDTH 13.5 % (11.6-14.8)
[2020-01-15 18:31] LABS: WHITE BLOOD COUNT 23.8 K/UL (4.8-10.8)
[2020-01-15 18:32] LABS: INR 1.5 (0.9-1.1)
[2020-01-15] MEDS ORDERED: Vancomycin 1 GM in NS 275 ML IVPB ONE (18:45)
[2020-01-15] MEDS ORDERED: Piperacillin/Tazobactam 3.375 GM in NS 110 ML IVPB ONE (18:45)
[2020-01-15 18:50] LABS: ALANINE AMINOTRANSFERASE 10 U/L (12-78); ALBUMIN 2.4 G/DL (3.4-5.0); ALBUMIN/GLOBULIN RATIO 0.5 (1.0-2.7); ALKALINE PHOSPHATASE 252 U/L (46-116); ANION GAP 24 mmol/L (5-15); ASPARTATE AMINO TRANSFERASE 24 U/L (15-37); BILIRUBIN,TOTAL 0.5 MG/DL (0.2-1.0); BLOOD UREA NITROGEN 233 mg/dL (7-18); CALCIUM 10.2 MG/DL (8.5-10.1); CARBON DIOXIDE 14 MMOL/L (21-32); CHLORIDE 66 MMOL/L (98-107); CKMB 5.8 NG/ML (0.0-3.6); CREATINE KINASE 87 U/L (26-308); CREATININE 6.7 MG/DL (0.55-1.30); FERRITIN 1132 NG/ML (8-388); LACTATE DEHYDROGENASE 140 U/L (81-234); PHOSPHORUS 9.1 MG/DL (2.5-4.9); POTASSIUM 5.4 MMOL/L (3.5-5.1)
[2020-01-15 18:53] LABS: SODIUM 103 MMOL/L (136-145)
[2020-01-15] MEDS ORDERED: NaCl 3% 500ml 500 ML IV ONE ×3 (19:00→19:15)
--- NOTE | 2020-01-15 19:07 | NUR ---
pt from [facility] mitchell
--- NOTE | 2020-01-15 19:08 | NUR ---
ED Nurse Note: per ED MD . dc NS and start NaCl 3%
--- NOTE | 2020-01-15 19:10 | NUR ---
ED Nurse Note: Report given to Uli RN
--- NOTE | 2020-01-15 19:12 | NUR ---
RESPIRATORY NOTE: Received pt on AC VC 20, 500VT, 100%, PEEP +8. Pt is trach-dependent w/ a cuffed, Shiley 7 XLT tube. Pt is asleep/disoriented. B/S sara. rhonchi, sxn small to moderate amounts of thick, bloody secretions. FiO2 titrated to 60% per ABG (see labs for result). RN at bedside. Vent plugged into red outlet, ambubag at bedside. Pt in no apparent distress at this time. Will continue to monitor pt.
--- NOTE | 2020-01-15 19:16 | Diagnostic Imaging Report ---
Indication: Shortness of breath Technique: One view of the chest Comparison: 12/08/2019 Findings: There is a large left pleural effusion. There is bilateral interstitial and airspace infiltrates versus edema. There is a tracheostomy. The heart size is upper limits of normal. There are median sternotomy sutures. Impression: Large left pleural effusion Bilateral interstitial and airspace infiltrates versus edema
[2020-01-15] MEDS ORDERED: Insulin Human Regular 100units/ml 3ml IV ONE (19:30)
[2020-01-15] MEDS ORDERED: Calcium Gluconate 1gm/10ml vial IVP ONE (19:30)
--- NOTE | 2020-01-15 21:12 | NUR ---
ED Nurse Note: Report given to ERASMO Starr.
[2020-01-15 21:29] LABS: CALCIUM 9.8 MG/DL (8.5-10.1); CREATININE 6.7 MG/DL (0.55-1.30); POTASSIUM 4.9 MMOL/L (3.5-5.1)
[2020-01-15 21:45] VITALS: BP 139/43
--- NOTE | 2020-01-15 21:50 | NUR ---
NURSE NOTES: Received report from Maya ZIMMERMAN. patient from [facility] under the care of Dr. Dong with admitting diagnosis of respiratory distress. patient obtunded. trach to vent. Shiley 7 XLT, AC 20, TV500 fi02 60% peep 8 satting 100%. HOB elevated. GT intact leaking around the GT site, GT site noted with excoriation,placed GT dressing. NPO. GT intact with 20cc black liquid residual. Norman inserted from ER, noted with dark raul brownish urine in the tubing. body assessment done. patient with generalized edema, facial edema and lower extremities pitting edema +3. bilateral extremities elevated with pillows. Right AC#20 and Left Wrist #18 intact no s/s of infiltration. received patient with 3 bags of 500 Hypertonic NA Chloride each bag infusing at 30cc/hr total of 90cc/hr per ER MD. Sodium 103. Contact isolation maintained and observed. Covid swab pending. no fever. Call light within easy reach. will call MD. bed alarm on. bed locked and in low position. will continue plan of care.
[2020-01-15 22:00] VITALS: BP 130/46
--- NOTE | 2020-01-15 22:10 | NUR ---
NURSE NOTES: Called Dr. Dong and left message regarding patient admission orders and condition.
[2020-01-15] MEDS ORDERED: Metoclopramide 10mg/2ml Inj IVP PRN (22:15)
--- NOTE | 2020-01-15 22:20 | NUR ---
TRANSFER TO FLOOR: Patient transferred to ICU as ordered, per ERMD. Report given to ERASMO Starr. Patient transported via gurney in stable condition with training officer accompanied by RT, FERN arredondo and RN.
--- NOTE | 2020-01-15 22:25 | NUR ---
NURSE NOTES: Dr. Dong called back updated regarding patient admission, dr. Dong gave admission orders noted and carried.
[2020-01-15 23:00] VITALS: BP 113/41
[2020-01-15 23:39] LABS: CREATININE 6.9 MG/DL (0.55-1.30); POTASSIUM 5.5 MMOL/L (3.5-5.1)
[2020-01-16] VITALS (26 sets, daily range): BP systolic 94–131; BP diastolic 31–62
--- NOTE | 2020-01-16 00:26 | NUR ---
NURSE NOTES: Called Dr. Dong and left message regarding BMP result, will follow up.
--- NOTE | 2020-01-16 01:00 | NUR ---
NURSE NOTES: Dr. Dong called back with new order noted and carried.
[2020-01-16] MEDS ORDERED: NaCl 3% 500ml 500 ML IV ONE ×4 (01:45→02:00)
--- NOTE | 2020-01-16 03:00 | NUR ---
NURSE NOTES: Bed bath given tolerated well.
--- NOTE | 2020-01-16 05:00 | NUR ---
NURSE NOTES: patient in bed sleeping comfortably. no s/s of acute distress noted. HOB elevated. NPO. no moaning no facial grimaces. no diarrhea. no fever. frequent visual checks continued. Turned and repositioned for wound management. will continue plan of care.
[2020-01-16 05:42] LABS: CALCIUM 9.7 MG/DL (8.5-10.1); CREATININE 6.8 MG/DL (0.55-1.30); POTASSIUM 5.4 MMOL/L (3.5-5.1)
[2020-01-16 06:01] LABS: HEMATOCRIT 16.3 % (37.0-47.0); MEAN CORPUSCULAR VOLUME 77 FL (80-99); PLATELET COUNT 324 K/UL (150-450); RED BLOOD COUNT 2.12 M/UL (4.20-5.40); RED CELL DISTRIBUTION WIDTH 15.1 % (11.6-14.8); WHITE BLOOD COUNT 15.8 K/UL (4.8-10.8)
[2020-01-16 06:40] LABS: HEMOGLOBIN 5.9 G/DL (12.0-16.0)
--- NOTE | 2020-01-16 07:00 | NUR ---
NURSE NOTES: seen and examined by Dr. Muhammad made aware of HBG of 5.9 with new order to transfused 2 PRBC MD gave consent noted and carried out.
--- NOTE | 2020-01-16 07:09 | Consultation ---
History of Present Illness General Chief Complaint: Dyspnea/Respdistress Present Illness Allergies: Coded Allergies: No Known Allergies (Unverified , 10/10/17) Medication History Scheduled Albuterol Sulfate (Proventil Hfa), 2 PUFF IH Q6HR, (Reported) Amino Acids/Protein Hydrolys (Pro-Stat Liquid), 30 ML GT TWICE A DAY, (Reported) Amlodipine Besylate (Norvasc), 10 MG GT DAILY, (Reported) Ascorbic Acid* (Vitamin C*), 500 MG GT DAILY, (Reported) Atorvastatin Calcium* (Lipitor*), 10 MG GT DAILY, (Reported) Clonazepam* (Klonopin*), 1 MG ORAL Q8HR, (Reported) Diltiazem Hcl* (Cardizem*), 30 MG GT Q8HR, (Reported) Diltiazem Hcl* (Cardizem*), 30 MG GT EVERY 8 HOURS, (Reported) Docusate Sodium* (Docusate Sodium*), 200 MG GT DAILY, (Reported) Epoetin Gelacio (Epogen), 8,000 UNIT SUBQ 3XW, (Reported) Gel Base No.41 (Hydrogel), Unknown Dose TOPIC DAILY, (Reported) Gemfibrozil (Gemfibrozil*), 600 MG GT BID, (Reported) Gemfibrozil* (Lopid*), 600 MG ORAL TWICE A DAY, (Reported) Heparin Sod (Porcine) (Heparin Sodium*), 5,000 UNITS SUBQ EVERY 12 HOURS, (Reported) Insulin Aspart (Novolog Flexpen), 0 SUBQ Q6HR, (Reported) Insulin Regular, Human* (Novolin R*), 0 SUBQ .SLIDING SCALE, (Reported) Lisinopril (Lisinopril*), 20 MG GT DAILY, (Reported) Lisinopril* (Lisinopril*), 20 MG GT DAILY, (Reported) Metoclopramide Hcl* (Metoclopramide Hcl*), 5 MG ORAL EVERY 6 HOURS, (Reported) Metolazone (Metolazone), 2.5 MG GT DAILY, (Reported) Metolazone (Metolazone), 2.5 MG GT HS, (Reported) Metolazone (Metolazone), 2.5 MG GT DAILY, (Reported) Minoxidil* (Loniten*), 2.5 MG GT DAILY, (Reported) Minoxidil* (Loniten*), 2.5 MG GT EVERY 8 HOURS, (Reported) Multivitamin With Minerals (Multivitamins With Minerals*), 1 TAB GT DAILY, (Reported) Polyethylene Glycol 3350* (Miralax*), 17 GM GT BEDTIME, (Reported) Polyethylene Glycol 3350* (Miralax*), 17 GM GT HS, (Reported) Risperidone* (Risperdal*), 2 MG GT DAILY, (Reported) Vitamin B Cmplx/Vit C/Folic AC (Nephro-Cyril Tablet), 1 TAB GT DAILY, (Reported) Zinc Sulfate (Zinc Sulfate), 220 MG GT DAILY, (Reported) Scheduled PRN Acetaminophen (Tylenol), 325 MG ORAL Q4HR PRN for Prn Pain/Headache/Temp > 101, (Reported) Hydrocodone Bit/Acetaminophen 10-325* ([place] 10-325*), 1 TAB GT Q6H PRN for For Pain, (Reported) Hydromorphone Hcl (Hydromorphone Hcl), 2 MG GT Q6H PRN for For Pain, (Reported) Magnesium Hydroxide* (Milk Of Magnesia*), 30 ML GT NEEDED PRN for Constipation, (Reported) Metoclopramide Hcl* (Metoclopramide Hcl*), 5 ML GT EVERY 6 HOURS PRN for Nausea & Vomiting, (Reported) Tramadol Hcl* (Ultram*), 100 MG GT EVERY 8 HOURS PRN for For Pain, (Reported) Miscellaneous Medications Epoetin Gelacio-Epbx (Retacrit), 10,000 UNIT IJ, (Reported) Patient History Healthcare decision maker Resuscitation status Advanced Directive on File Physical Exam Last 24 Hour Vital Signs Date Time Temp Pulse Resp B/P (MAP) Pulse Ox O2 Delivery O2 Flow Rate FiO2 01/16/20 06:30 94 25 01/16/20 06:00 95 25 128/44 (72) 95 01/16/20 05:00 94 25 107/41 (63) 94 01/16/20 04:00 95 01/16/20 04:00 Mechanical Ventilator 01/16/20 04:00 97.8 94 24 129/47 (74) 95 01/16/20 03:14 90 24 50 01/16/20 03:00 89 22 119/43 (68) 96 01/16/20 02:00 90 23 131/48 (75) 99 01/16/20 01:00 90 23 127/46 (73) 99 01/16/20 00:00 80 01/16/20 00:00 98.0 78 23 112/46 (68) 99 01/16/20 00:00 Mechanical Ventilator 01/15/20 23:01 76 23 50 01/15/20 23:00 78 23 113/41 (65) 99 01/15/20 22:39 15.0 60 01/15/20 22:36 Mechanical Ventilator 15.0 01/15/20 22:20 97.5 83 27 117/44 97 Mechanical Ventilator 15.0 60 01/15/20 22:00 72 23 130/46 (74) 99 01/15/20 21:45 97.5 80 23 139/43 (75) 99 01/15/20 21:44 90 01/15/20 19:08 88 33 60 01/15/20 18:08 101 32 100 01/15/20 17:40 99.1 85 29 114/78 100 Mechanical Ventilator 01/15/20 17:40 81 29 Mechanical Ventilator 01/15/20 17:38 99.1 95 23 136/90 (105) 96 Non-Rebreather 15.0 Intake and Output 01/15/20 01/16/20 19:00 07:00 Intake Total 2847.5 ml Output Total 0 ml Balance 2847.5 ml Intake Oral 0 ml IV Total 2847.5 ml Output Urine Total 0 ml Laboratory Tests Test 01/15/20 17:48 01/15/20 17:52 01/15/20 20:55 01/15/20 23:05 White Blood Count 23.8 K/UL (4.8-10.8) *H Red Blood Count 2.69 M/UL (4.20-5.40) L Hemoglobin 7.3 G/DL (12.0-16.0) L Hematocrit 21.7 % (37.0-47.0) L Mean Corpuscular Volume 81 FL (80-99) Mean Corpuscular Hemoglobin 27.3 PG (27.0-31.0) Mean Corpuscular Hemoglobin Concent 33.8 G/DL (32.0-36.0) Red Cell Distribution Width 13.5 % (11.6-14.8) Platelet Count 426 K/UL (150-450) Mean Platelet Volume 4.4 FL (6.5-10.1) L Neutrophils (%) (Auto) % (45.0-75.0) Lymphocytes (%) (Auto) % (20.0-45.0) Monocytes (%) (Auto) % (1.0-10.0) Eosinophils (%) (Auto) % (0.0-3.0) Basophils (%) (Auto) % (0.0-2.0) Differential Total Cells Counted 100 Neutrophils % (Manual) 88 % (45-75) H Lymphocytes % (Manual) 8 % (20-45) L Monocytes % (Manual) 3 % (1-10) Eosinophils % (Manual) 1 % (0-3) Basophils % (Manual) 0 % (0-2) Band Neutrophils 0 % (0-8) Platelet Estimate Increased H Platelet Morphology Normal Hypochromasia 2+ Anisocytosis 1+ Microcytosis 1+ Prothrombin Time 16.3 SEC (9.30-11.50) H Prothromb Time International Ratio 1.5 (0.9-1.1) H Activated Partial Thromboplast Time 38 SEC (23-33) H D-Dimer 14.28 mg/L FEU (0.00-0.49) H Sodium Level 103 MMOL/L (136-145) *L 105 MMOL/L (136-145) *L 105 MMOL/L (136-145) *L Potassium Level 5.4 MMOL/L (3.5-5.1) H 4.9 MMOL/L (3.5-5.1) 5.5 MMOL/L (3.5-5.1) H Chloride Level 66 MMOL/L (98-107) L 68 MMOL/L (98-107) L 68 MMOL/L (98-107) L Carbon Dioxide Level 14 MMOL/L (21-32) L 14 MMOL/L (21-32) L 17 MMOL/L (21-32) L Anion Gap 24 mmol/L (5-15) H 23 mmol/L (5-15) H 21 mmol/L (5-15) H Blood Urea Nitrogen 233 mg/dL (7-18) H 242 mg/dL (7-18) H 232 mg/dL (7-18) H Creatinine 6.7 MG/DL (0.55-1.30) H 6.7 MG/DL (0.55-1.30) H 6.9 MG/DL (0.55-1.30) H Estimat Glomerular Filtration Rate 6.6 mL/min (>60) 6.6 mL/min (>60) 6.4 mL/min (>60) Glucose Level 100 MG/DL (74-106) 140 MG/DL (74-106) H 99 MG/DL (74-106) Lactic Acid Level 0.70 mmol/L (0.4-2.0) Calcium Level 10.2 MG/DL (8.5-10.1) H 9.8 MG/DL (8.5-10.1) 10.0 MG/DL (8.5-10.1) Phosphorus Level 9.1 MG/DL (2.5-4.9) H Magnesium Level 4.1 MG/DL (1.8-2.4) H Ferritin 1132 NG/ML (8-388) H Total Bilirubin 0.5 MG/DL (0.2-1.0) Aspartate Amino Transf (AST/SGOT) 24 U/L (15-37) Alanine Aminotransferase (ALT/SGPT) 10 U/L (12-78) L Alkaline Phosphatase 252 U/L (46-116) H Lactate Dehydrogenase 140 U/L (81-234) Total Creatine Kinase 87 U/L (26-308) Creatine Kinase MB 5.8 NG/ML (0.0-3.6) H Creatine Kinase MB Relative Index 6.6 Troponin I 0.299 ng/mL (0.000-0.056) C-Reactive Protein, Quantitative 21.8 mg/dL (0.00-0.90) H Pro-B-Type Natriuretic Peptide > 10739 pg/mL (0-125) H Total Protein 7.1 G/DL (6.4-8.2) Albumin 2.4 G/DL (3.4-5.0) L Globulin 4.7 g/dL Albumin/Globulin Ratio 0.5 (1.0-2.7) L Lipase > 2000 U/L (73-393) H Arterial Blood pH 7.252 (7.350-7.450) Arterial Blood Partial Pressure CO2 30.7 mmHg (35.0-45.0) L Arterial Blood Partial Pressure O2 119.1 mmHg (75.0-100.0) H Arterial Blood HCO3 13.2 mmol/L (22.0-26.0) *L Arterial Blood Oxygen Saturation 97.8 % (95-100) Arterial Blood Base Excess -12.8 (-2-2) *L Rojas Test Positive Test 01/16/20 03:00 White Blood Count 15.8 K/UL (4.8-10.8) H Red Blood Count 2.12 M/UL (4.20-5.40) L Hemoglobin 5.9 G/DL (12.0-16.0) *L Hematocrit 16.3 % (37.0-47.0) L Mean Corpuscular Volume 77 FL (80-99) L Mean Corpuscular Hemoglobin 27.8 PG (27.0-31.0) Mean Corpuscular Hemoglobin Concent 36.2 G/DL (32.0-36.0) H Red Cell Distribution Width 15.1 % (11.6-14.8) H Platelet Count 324 K/UL (150-450) Mean Platelet Volume 4.5 FL (6.5-10.1) L Neutrophils (%) (Auto) % (45.0-75.0) Lymphocytes (%) (Auto) % (20.0-45.0) Monocytes (%) (Auto) % (1.0-10.0) Eosinophils (%) (Auto) % (0.0-3.0) Basophils (%) (Auto) % (0.0-2.0) Neutrophils % (Manual) Pending Lymphocytes % (Manual) Pending Platelet Estimate Pending Platelet Morphology Pending Sodium Level 110 MMOL/L (136-145) *L Potassium Level 5.4 MMOL/L (3.5-5.1) H Chloride Level 72 MMOL/L (98-107) L Carbon Dioxide Level 14 MMOL/L (21-32) L Anion Gap 24 mmol/L (5-15) H Blood Urea Nitrogen 226 mg/dL (7-18) H Creatinine 6.8 MG/DL (0.55-1.30) H Estimat Glomerular Filtration Rate 6.5 mL/min (>60) Glucose Level 99 MG/DL (74-106) Calcium Level 9.7 MG/DL (8.5-10.1) Microbiology Date/Time Source Procedure Growth Status 01/15/20 19:30 Rectum Received 01/15/20 18:14 Nasal Nares - Final Complete 01/15/20 18:14 Nasal Nares - Final Complete Height (Feet): 5 Height (Inches): 6.00 Weight (Pounds): 150 Medications Current Medications Medications (Trade) Dose Ordered Sig/Penny Route PRN Reason Start Time Stop Time Status Last Admin Dose Admin Dextrose (Dextrose 50%) 25 ml Q30M PRN IV Hypoglycemia 01/15/20 22:15 04/14/20 22:14 Dextrose (Dextrose 50%) 50 ml Q30M PRN IV Hypoglycemia 01/15/20 22:15 04/14/20 22:14 Metoclopramide HCl (Reglan) 5 mg Q6H PRN IVP Nausea & Vomiting 01/15/20 22:15 02/14/20 22:14 Pantoprazole (Protonix) 40 mg EVERY 12 HOURS IV 01/16/20 09:00 02/15/20 08:59 Piperacillin Sod/ Tazobactam Sod 3.375 gm/Sodium Chloride 110 ml @ 27.5 mls/hr Q12H IVPB 01/16/20 07:00 01/23/20 06:59 Sodium Chloride 500 ml @ 30 mls/hr ONCE ONCE IV 01/16/20 01:45 01/16/20 18:24 01/16/20 02:14 Sodium Chloride 500 ml @ 30 mls/hr ONCE ONCE IV 01/16/20 01:45 01/16/20 18:24 01/16/20 02:15 Sodium Chloride 500 ml @ 30 mls/hr ONCE ONCE IV 01/16/20 01:45 01/16/20 18:24 01/16/20 02:16 [facility] 1 [facility]a DAILY PRN MISC Per rx protocol 01/15/20 22:15 02/14/20 22:14 Assessment/Plan Assessment/Plan: Consultation Note Hematology REQ : Lucas NUGENT 01/16/2020 RFC: severe anemia, high wbc HPI This a 49 year-old female well known to me, with a history of schizophrenia, COPD, respiratory failure status post tracheostomy. She presents with chief complaint of shortness of breath and chest pain. I have seen her multiple times in the past, here from [facility]. She then complained of feeling short of breath and chest pain. detention called 911. Industrial Safety And Health Manager gave her aspirin and nitroglycerin. No relief. Patient denies any trauma. No seizure history. Nothing made it better. Nothing made it worse. Denies any other complaint. History limited because patient has tracheostomy. Hgb 5.9 this am, transfused 2 units prbc with rn. 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 COVID-19 Screening: Negative COVID-19 COVID-19 Testing Source: earlier in August from SNF Patient History Past Medical History: see triage record, old chart reviewed, AFib, COPD Past Surgical History: other Pertinent Family History: none Social History: Denies: smoking Now: No Immunizations: other Reviewed Nursing Documentation: PMH: Agreed; PSxH: Agreed Nursing Documentation-PMH Hx Cardiac Problems: Yes Hx Hypertension: Yes Hx Pacemaker: Yes - Left upper chest Hx Cancer: No Hx Gastrointestinal Problems: No Hx Neurological Problems: Yes Hx Cerebrovascular Accident: No Hx Transient Ischemic Attacks: No Hx Dementia: No Hx Alzheimer's Disease: No Hx Parkinson's Disease: Yes Hx Meningitis: No Hx Encephalitis: No Hx Dysphasia: Yes Review of Systems nonverbal Physical Exam: Vitals: reviewed General: NAD HEENT: nc, at Neck: supple ++trach/vent Chest: clear breath sounds bilaterally Cardiovascular: RRR, no s3, s4 Abdomen: soft, nontender, nd +gtube Extremities: no cce, normal range of motion Neuro: alert Labs reviewed Imaging: noted Assessment and Recs # Leukocytosis, now with pna v other process --> Cxr: : Large left pleural effusion, Bilateral interstitial and airspace infiltrates versus edema --> wbc 16 --> ABX zosyn --> ID recs are noted # Anemia of chronic disease due to underlying chronic medical issues, multifactorial --> Anemia workup has been reviewed, cw acd --> No evidence of hemolysis is noted, peripheral smear has been reviewed. --> Hgb goal >7. Transfuse prn. --> Epogen required in prior --> Medications have been reviewed --> low threshold for gi evaluation in case has occult + --> hgb 7.1-->7.8-->>>5.9 --> 1 unit prbc10/17, 2 units 12/3 --> gi eval as needed # Coagulopathy with inr 1.5 --> consider vit k/ffp as needed preprocedure --> labs noted # JAVIER initially >2 --> on ivfs --> per renal # Elevated d-dimer --> venous duplex ordered --> in prior neg # Dysphagia s/p peg --> as per gi # Thoracic aortic dissection --> s/p repair early 2017 # Chronic Resp failure -> s/p trach/vent # Psychiatric history on ativan/haldol # [place] resident # Dvt ppx --> scds The timing of this note does not necessarily reflect the time of the patient was seen. Greatly appreciate consultation. Evan Muhammad MD Jan 16, 2020 07:09
--- NOTE | 2020-01-16 07:19 | NUR ---
NURSE NOTES: Called patient mother Fely Lentz at and left message.
[2020-01-16] MEDS: Pantoprazole Inj IV SCH ×2 (08:12→20:58)
[2020-01-16] MEDS: Zosyn 3.375gm in NS 110ml IVPB SCH ×2 (08:12→18:43)
--- NOTE | 2020-01-16 08:45 | Consultation ---
History of Present Illness General Date patient seen: Jan 16, 2020 Time patient seen: 11:46 Chief Complaint: Dyspnea/Respdistress Referring physician: PCP Reason for Consultation: Hypoxia Present Illness HPI 49yo F from SNF who p/w hypoxia. Pt is nonverbal on vent, history obtained from chart review. Per ED note, "pt is trach and vent dependent for chronic respiratory failure, tube feed dependent, AO x0 baseline. Report from EMS states patient required increasing oxygen levels throughout the day to maintain saturations greater than 90%. Found hypoxic at 80% on their initial evaluation. Disconnected from ventilator and bagged up to the mid 90s. Patient shows increased work of breathing and coarse breath sounds. No reported fever. Last tested for COVID-19 on 12/29 the results of which was negative." Pt currently in ICU on vent, moans to touch but not interactive. Per RN had leakage around Gtube w/ some bleeding. Going to be transfused today for Hg 5.9, also going to get HD cath to initiate HD. PMH: COPD, respiratory failure, CABG, thoracic aneurysm, kidney failure, decubitus ulcer among others Allergies: Coded Allergies: No Known Allergies (Unverified , 10/10/17) Medication History Scheduled Albuterol Sulfate (Proventil Hfa), 2 PUFF IH Q6HR, (Reported) Amino Acids/Protein Hydrolys (Pro-Stat Liquid), 30 ML GT TWICE A DAY, (Reported) Amlodipine Besylate (Norvasc), 10 MG GT DAILY, (Reported) Ascorbic Acid* (Vitamin C*), 500 MG GT DAILY, (Reported) Atorvastatin Calcium* (Lipitor*), 10 MG GT DAILY, (Reported) Clonazepam* (Klonopin*), 1 MG ORAL Q8HR, (Reported) Diltiazem Hcl* (Cardizem*), 30 MG GT Q8HR, (Reported) Diltiazem Hcl* (Cardizem*), 30 MG GT EVERY 8 HOURS, (Reported) Docusate Sodium* (Docusate Sodium*), 200 MG GT DAILY, (Reported) Epoetin Gelacio (Epogen), 8,000 UNIT SUBQ 3XW, (Reported) Gel Base No.41 (Hydrogel), Unknown Dose TOPIC DAILY, (Reported) Gemfibrozil (Gemfibrozil*), 600 MG GT BID, (Reported) Gemfibrozil* (Lopid*), 600 MG ORAL TWICE A DAY, (Reported) Heparin Sod (Porcine) (Heparin Sodium*), 5,000 UNITS SUBQ EVERY 12 HOURS, (Reported) Insulin Aspart (Novolog Flexpen), 0 SUBQ Q6HR, (Reported) Insulin Regular, Human* (Novolin R*), 0 SUBQ .SLIDING SCALE, (Reported) Lisinopril (Lisinopril*), 20 MG GT DAILY, (Reported) Lisinopril* (Lisinopril*), 20 MG GT DAILY, (Reported) Metoclopramide Hcl* (Metoclopramide Hcl*), 5 MG ORAL EVERY 6 HOURS, (Reported) Metolazone (Metolazone), 2.5 MG GT DAILY, (Reported) Metolazone (Metolazone), 2.5 MG GT HS, (Reported) Metolazone (Metolazone), 2.5 MG GT DAILY, (Reported) Minoxidil* (Loniten*), 2.5 MG GT DAILY, (Reported) Minoxidil* (Loniten*), 2.5 MG GT EVERY 8 HOURS, (Reported) Multivitamin With Minerals (Multivitamins With Minerals*), 1 TAB GT DAILY, (Reported) Polyethylene Glycol 3350* (Miralax*), 17 GM GT BEDTIME, (Reported) Polyethylene Glycol 3350* (Miralax*), 17 GM GT HS, (Reported) Risperidone* (Risperdal*), 2 MG GT DAILY, (Reported) Vitamin B Cmplx/Vit C/Folic AC (Nephro-Cyril Tablet), 1 TAB GT DAILY, (Reported) Zinc Sulfate (Zinc Sulfate), 220 MG GT DAILY, (Reported) Scheduled PRN Acetaminophen (Tylenol), 325 MG ORAL Q4HR PRN for Prn Pain/Headache/Temp > 101, (Reported) Hydrocodone Bit/Acetaminophen 10-325* (Waverly 10-325*), 1 TAB GT Q6H PRN for For Pain, (Reported) Hydromorphone Hcl (Hydromorphone Hcl), 2 MG GT Q6H PRN for For Pain, (Reported) Magnesium Hydroxide* (Milk Of Magnesia*), 30 ML GT NEEDED PRN for Con stipation, (Reported) Metoclopramide Hcl* (Metoclopramide Hcl*), 5 ML GT EVERY 6 HOURS PRN for Nausea & Vomiting, (Reported) Tramadol Hcl* (Ultram*), 100 MG GT EVERY 8 HOURS PRN for For Pain, (Reported) Miscellaneous Medications Epoetin Gelacio-Epbx (Retacrit), 10,000 UNIT IJ, (Reported) Patient History Limited by: medical condition Healthcare decision maker Resuscitation status Advanced Directive on File Review of Systems ROS Narrative Unable to assess 2/2 pt condition Physical Exam Physical Exam Narrative Gen: NAD HEENT: NCAT, +trach Pulm: BL chest rise on vent Abd: Non-distended, +PEG Ext: No c/c/e Skin: No visible rashes, multiple tattoos Neuro: Awake but not interactive, moans to touch Last 24 Hour Vital Signs Date Time Temp Pulse Resp B/P (MAP) Pulse Ox O2 Delivery O2 Flow Rate FiO2 01/16/20 07:14 96 28 50 01/16/20 07:00 96 24 127/47 (73) 95 01/16/20 06:30 94 25 01/16/20 06:00 95 25 128/44 (72) 95 01/16/20 05:00 94 25 107/41 (63) 94 01/16/20 04:00 95 01/16/20 04:00 Mechanical Ventilator 01/16/20 04:00 97.8 94 24 129/47 (74) 95 01/16/20 03:14 90 24 50 01/16/20 03:00 89 22 119/43 (68) 96 01/16/20 02:00 90 23 131/48 (75) 99 01/16/20 01:00 90 23 127/46 (73) 99 01/16/20 00:00 80 01/16/20 00:00 98.0 78 23 112/46 (68) 99 01/16/20 00:00 Mechanical Ventilator 01/15/20 23:01 76 23 50 01/15/20 23:00 78 23 113/41 (65) 99 01/15/20 22:39 15.0 60 01/15/20 22:36 Mechanical Ventilator 15.0 01/15/20 22:20 97.5 83 27 117/44 97 Mechanical Ventilator 15.0 60 01/15/20 22:00 72 23 130/46 (74) 99 01/15/20 21:45 97.5 80 23 139/43 (75) 99 01/15/20 21:44 90 01/15/20 19:08 88 33 60 01/15/20 18:08 101 32 100 01/15/20 17:40 99.1 85 29 114/78 100 Mechanical Ventilator 01/15/20 17:40 81 29 Mechanical Ventilator 01/15/20 17:38 99.1 95 23 136/90 (105) 96 Non-Rebreather 15.0 Intake and Output 01/15/20 01/16/20 19:00 07:00 Intake Total 3027.5 ml Output Total 0 ml Balance 3027.5 ml Intake Oral 0 ml IV Total 3027.5 ml Output Urine Total 0 ml Laboratory Tests Test 01/15/20 17:48 01/15/20 17:52 01/15/20 20:55 01/15/20 23:05 White Blood Count 23.8 K/UL (4.8-10.8) *H Red Blood Count 2.69 M/UL (4.20-5.40) L Hemoglobin 7.3 G/DL (12.0-16.0) L Hematocrit 21.7 % (37.0-47.0) L Mean Corpuscular Volume 81 FL (80-99) Mean Corpuscular Hemoglobin 27.3 PG (27.0-31.0) Mean Corpuscular Hemoglobin Concent 33.8 G/DL (32.0-36.0) Red Cell Distribution Width 13.5 % (11.6-14.8) Platelet Count 426 K/UL (150-450) Mean Platelet Volume 4.4 FL (6.5-10.1) L Neutrophils (%) (Auto) % (45.0-75.0) Lymphocytes (%) (Auto) % (20.0-45.0) Monocytes (%) (Auto) % (1.0-10.0) Eosinophils (%) (Auto) % (0.0-3.0) Basophils (%) (Auto) % (0.0-2.0) Differential Total Cells Counted 100 Neutrophils % (Manual) 88 % (45-75) H Lymphocytes % (Manual) 8 % (20-45) L Monocytes % (Manual) 3 % (1-10) Eosinophils % (Manual) 1 % (0-3) Basophils % (Manual) 0 % (0-2) Band Neutrophils 0 % (0-8) Platelet Estimate Increased H Platelet Morphology Normal Hypochromasia 2+ Anisocytosis 1+ Microcytosis 1+ Prothrombin Time 16.3 SEC (9.30-11.50) H Prothromb Time International Ratio 1.5 (0.9-1.1) H Activated Partial Thromboplast Time 38 SEC (23-33) H D-Dimer 14.28 mg/L FEU (0.00-0.49) H Sodium Level 103 MMOL/L (136-145) *L 105 MMOL/L (136-145) *L 105 MMOL/L (136-145) *L Potassium Level 5.4 MMOL/L (3.5-5.1) H 4.9 MMOL/L (3.5-5.1) 5.5 MMOL/L (3.5-5.1) H Chloride Level 66 MMOL/L (98-107) L 68 MMOL/L (98-107) L 68 MMOL/L (98-107) L Carbon Dioxide Level 14 MMOL/L (21-32) L 14 MMOL/L (21-32) L 17 MMOL/L (21-32) L Anion Gap 24 mmol/L (5-15) H 23 mmol/L (5-15) H 21 mmol/L (5-15) H Blood Urea Nitrogen 233 mg/dL (7-18) H 242 mg/dL (7-18) H 232 mg/dL (7-18) H Creatinine 6.7 MG/DL (0.55-1.30) H 6.7 MG/DL (0.55-1.30) H 6.9 MG/DL (0.55-1.30) H Estimat Glomerular Filtration Rate 6.6 mL/min (>60) 6.6 mL/min (>60) 6.4 mL/min (>60) Glucose Level 100 MG/DL (74-106) 140 MG/DL (74-106) H 99 MG/DL (74-106) Lactic Acid Level 0.70 mmol/L (0.4-2.0) Calcium Level 10.2 MG/DL (8.5-10.1) H 9.8 MG/DL (8.5-10.1) 10.0 MG/DL (8.5-10.1) Phosphorus Level 9.1 MG/DL (2.5-4.9) H Magnesium Level 4.1 MG/DL (1.8-2.4) H Ferritin 1132 NG/ML (8-388) H Total Bilirubin 0.5 MG/DL (0.2-1.0) Aspartate Amino Transf (AST/SGOT) 24 U/L (15-37) Alanine Aminotransferase (ALT/SGPT) 10 U/L (12-78) L Alkaline Phosphatase 252 U/L (46-116) H Lactate Dehydrogenase 140 U/L (81-234) Total Creatine Kinase 87 U/L (26-308) Creatine Kinase MB 5.8 NG/ML (0.0-3.6) H Creatine Kinase MB Relative Index 6.6 Troponin I 0.299 ng/mL (0.000-0.056) C-Reactive Protein, Quantitative 21.8 mg/dL (0.00-0.90) H Pro-B-Type Natriuretic Peptide > 77870 pg/mL (0-125) H Total Protein 7.1 G/DL (6.4-8.2) Albumin 2.4 G/DL (3.4-5.0) L Globulin 4.7 g/dL Albumin/Globulin Ratio 0.5 (1.0-2.7) L Lipase > 2000 U/L (73-393) H Arterial Blood pH 7.252 (7.350-7.450) Arterial Blood Partial Pressure CO2 30.7 mmHg (35.0-45.0) L Arterial Blood Partial Pressure O2 119.1 mmHg (75.0-100.0) H Arterial Blood HCO3 13.2 mmol/L (22.0-26.0) *L Arterial Blood Oxygen Saturation 97.8 % (95-100) Arterial Blood Base Excess -12.8 (-2-2) *L Rojas Test Positive Test 01/16/20 03:00 White Blood Count 15.8 K/UL (4.8-10.8) H Red Blood Count 2.12 M/UL (4.20-5.40) L Hemoglobin 5.9 G/DL (12.0-16.0) *L Hematocrit 16.3 % (37.0-47.0) L Mean Corpuscular Volume 77 FL (80-99) L Mean Corpuscular Hemoglobin 27.8 PG (27.0-31.0) Mean Corpuscular Hemoglobin Concent 36.2 G/DL (32.0-36.0) H Red Cell Distribution Width 15.1 % (11.6-14.8) H Platelet Count 324 K/UL (150-450) Mean Platelet Volume 4.5 FL (6.5-10.1) L Neutrophils (%) (Auto) % (45.0-75.0) Lymphocytes (%) (Auto) % (20.0-45.0) Monocytes (%) (Auto) % (1.0-10.0) Eosinophils (%) (Auto) % (0.0-3.0) Basophils (%) (Auto) % (0.0-2.0) Neutrophils % (Manual) Pending Lymphocytes % (Manual) Pending Platelet Estimate Pending Platelet Morphology Pending Sodium Level 110 MMOL/L (136-145) *L Potassium Level 5.4 MMOL/L (3.5-5.1) H Chloride Level 72 MMOL/L (98-107) L Carbon Dioxide Level 14 MMOL/L (21-32) L Anion Gap 24 mmol/L (5-15) H Blood Urea Nitrogen 226 mg/dL (7-18) H Creatinine 6.8 MG/DL (0.55-1.30) H Estimat Glomerular Filtration Rate 6.5 mL/min (>60) Glucose Level 99 MG/DL (74-106) Calcium Level 9.7 MG/DL (8.5-10.1) Microbiology Date/Time Source Procedure Growth Status 01/15/20 19:30 Rectum Received 01/15/20 18:14 Nasal Nares - Final Complete 01/15/20 18:14 Nasal Nares - Final Complete Height (Feet): 5 Height (Inches): 6.00 Weight (Pounds): 150 Medications Current Medications Medications (Trade) Dose Ordered Sig/Penny Route PRN Reason Start Time Stop Time Status Last Admin Dose Admin Dextrose (Dextrose 50%) 25 ml Q30M PRN IV Hypoglycemia 01/15/20 22:15 04/14/20 22:14 Dextrose (Dextrose 50%) 50 ml Q30M PRN IV Hypoglycemia 01/15/20 22:15 04/14/20 22:14 Metoclopramide HCl (Reglan) 5 mg Q6H PRN IVP Nausea & Vomiting 01/15/20 22:15 02/14/20 22:14 Pantoprazole (Protonix) 40 mg EVERY 12 HOURS IV 01/16/20 09:00 02/15/20 08:59 01/16/20 08:12 Piperacillin Sod/ Tazobactam Sod 3.375 gm/Sodium Chloride 110 ml @ 27.5 mls/hr Q12H IVPB 01/16/20 07:00 01/23/20 06:59 01/16/20 08:12 Sodium Chloride 500 ml @ 30 mls/hr ONCE ONCE IV 01/16/20 01:45 01/16/20 18:24 01/16/20 02:14 Sodium Chloride 500 ml @ 30 mls/hr ONCE ONCE IV 01/16/20 01:45 01/16/20 18:24 01/16/20 02:15 Sodium Chloride 500 ml @ 30 mls/hr ONCE ONCE IV 01/16/20 01:45 01/16/20 18:24 01/16/20 02:16 Vancomycin HCl ([facility] pharmacy to dose) 1 ea DAILY PRN MISC Per rx protocol 01/15/20 22:15 02/14/20 22:14 Assessment/Plan Assessment/Plan: 49yo F with: AF Sepsis Leukocytosis to 23 Hypoxia on vent Pneumonia c/b L pleural effusion (recurrent, prior determined to be transudative) Volume overload, BNP >35,0000, likely 2/2 progressive CKD --> ESRD ?Pancreatitis, Lipase >2000 Acute anemia to 5s 01/13 BCx p COVID PCR p Flu neg CXR: Large left pleural effusion. Bilateral interstitial and airspace infiltrates versus edema JAVIER on CKD On previous admission Sep-Oct 2019 required HD for short period Going to start HD this admission again R/o COVID 01/13 COVID PCR p 12/29 neg at SNF per report H/o UTI /15 u/a wbc 30-40, nit neg, leuk +3; ucx ESBL P. mirablis, ESBL M. morganii 09/15/19 u/a wbc tnct, nit neg, leuk +3; ucx >100k MDR P. stuarti (S Ceftriaxone, Meropenem) 10/07 u/a wbc tnct, nit neg, leuk ; ucx >100k VRE 10/15/19 u/a wbc tnct; ucx >100k ESBL P. stuarti (S ertapenem, aztreonam) H/o transudative pleural effusion 11/28 Sp Thora (w: 169, PMN: 2%, L: 49% , LDH: 57, prot 2.5); cx Neg H/o PNA 10/15/19 Resp cx ESBL P. mirabilis, MDR P.a. (S only to Gent) 09/22 Resp cx + MDR PsA (S-gent; I-colistin; R-levofloxacin, Zosyn, angelo) 09/16/19 Sp cx ESBL P. mirablis H/o PPM site (pocket) infection and pocket abscess 2ry to S. epi-11/2018, sp >6weeks IV vancomycin 11/27 SP ABBIE: no evidence for vegetation on any of the valves 11/26/18 SP PPM removal: OR findings:The fibrous capsule enclosing the generator was then opened and there was a [id number] amount of yellowish fluid drainage. The generator was then removed.Atrial and ventricular leads were detached. The necrotic tissue of the pocket was then removed and the pocket was flushed with an antibiotic solution. Capsule, wound tissue and lead tip cx: Neg 2d echo: no vegetation seen US chest: 4.6 x 3.4 x 0.9 cm hypoechoic/anechoic area overlying left chest pacemaker power pack. This could represent either a discrete fluid collection or a focal area of very edematous tissue. Infected fluid pocket also possible. 11/18 Bcx 3/4 S. epi; 11/20 Bcx neg; 11/24 Bcx Neg; 11/27 Bcx Neg CAD s/p CABG GERD/gastritis Afib HTN Dysphagia sp GT Aortic dissection s/p repair 2017 S/p PPM Parkinson's Disease Schizophrenia Anxiety COPD Chronic resp failure s/p trach Hx of tracheal bleeding [place] resident ([facility]) VRE and MRSA colonized Plan: Cont vanco/Zosyn #2 empiric Recommend volume removal given BNP >35k, agree with HD initiation ?Pancreatitis, lipase >2000, appreciate GI input F/u BCx / F/u COVID PCR 01/14 01/14 SP dex 10mg in ED 12/10 SP IV Gentamycin #10 12/07 SP Meropenem #10 12/01 SP IV Vancomycin #5 11/28 Sp Cefepime #2 and IV Gentamycin x1 Monitor CBC/CMP Monitor temp curve, hemodynamics Monitor resp status D/w RN Thank you for this consult. [facility] will continue to follow. Ro Pack M.D. Jan 16, 2020 08:45
--- NOTE | 2020-01-16 09:35 | NUR ---
NURSE NOTES: Seen and examined by Dr. Rosemarie MD updated regarding patient condition.
[2020-01-16 09:50] LABS: ALANINE AMINOTRANSFERASE 11 U/L (12-78); ALBUMIN 2.2 G/DL (3.4-5.0); ALBUMIN/GLOBULIN RATIO 0.5 (1.0-2.7); ALKALINE PHOSPHATASE 203 U/L (46-116); ANION GAP 24 mmol/L (5-15); ASPARTATE AMINO TRANSFERASE 20 U/L (15-37); BILIRUBIN,TOTAL 0.5 MG/DL (0.2-1.0); CALCIUM 9.7 MG/DL (8.5-10.1); CARBON DIOXIDE 13 MMOL/L (21-32); CHLORIDE 77 MMOL/L (98-107); CHOLESTEROL 58 MG/DL (< 200); HDL CHOLESTEROL 11 MG/DL (40-60); PHOSPHORUS 9.2 MG/DL (2.5-4.9); POTASSIUM 5.2 MMOL/L (3.5-5.1); TRIGLYCERIDES 58 MG/DL (30-150)
[2020-01-16 09:57] LABS: SODIUM 113 MMOL/L (136-145)
[2020-01-16 10:19] LABS: BLOOD UREA NITROGEN 230 mg/dL (7-18)
--- NOTE | 2020-01-16 11:02 | NUR ---
RD ASSESSMENT & RECOMMENDATIONS SEE CARE ACTIVITY FOR COMPLETE ASSESSMENT DAILY ESTIMATED NEEDS: Needs based on Critical care, wound, renal dysfunction 56 kg abw 28-33 kcals/kg 8370-9995 total kcals W/ HD (1.5-2.0) g protein/kg 84-112 g total protein Fluid per MD mL/kg . total fluid mLs NUTRITION DIAGNOSIS: * Swallowing difficulty R/T dysphagia, respiratory status as evidenced by vent dep via trach, GT Dep. * Increase kcal and pro needs r/t wound healing, renal dysfunction as evidenced by admitted w/ large, advanced sacral wound, previously stage 4, pending eval, admitted w/ JAVIER, pending HD. CURRENT TF:NPO ENTERAL NUTRITION RECOMMENDATIONS: Nepro @ 40ml/hr x 24 hrs + Prosource 1pkt QD to provide 960ml, 1728kcal, 78g+11g prot, 698ml free water * As medically appropriate, initiate TF on Nepro, rec goal rate fo 40ml/hr x 24 hrs * Add Prosource 1pkt QD to better meet increased protein needs (additional 11g prot) * Water flush per MD/ HOB over 30 degrees ADDITIONAL RECOMMENDATIONS: * Per SNF in NOV 2019: HT=63"/ Rec daily calibrated bedscale wt * Monitor for continuity of HD: non-tunneled cath placement ordered * Monitor lytes and renal fxn for improvement (Na low, K and phos elevated) * Wound care: add Nephrovite x 1, ZnSO4 220mg QD x 10 days Reynaldo BID via PEG (mix w/ 2-4 oz water) * Monitor BG closely for hypoglycemia while NPO (h/o DM, on Nacl 3% to correct hyponatremia, consider accuchecks)
--- NOTE | 2020-01-16 11:30 | NUR ---
NURSE NOTES: Seen and examined by Dr. Pack, per Dr. Pack keep the room closed patient is PUI still waiting for the PCR Covid test result.
--- NOTE | 2020-01-16 11:40 | NUR ---
NURSE NOTES: Seen by Wound nurse.
--- NOTE | 2020-01-16 11:45 | NUR ---
HAND-OFF: Report given to Magalys Pham RN.
--- NOTE | 2020-01-16 11:55 | NUR ---
NURSE NOTES: Report reiceved from ERASMO Starr. Patient is resting in bed. Afebrile. Able to open spontaneously. Able to make faces to pain. Non-verbal. Unable to follow commands. SR on content producer. Trach to vent AC 20, TV 500, FiO2 60%, P 5. O2 sat 98-99%. Moderate amount of tanned clear thick secretion from trach and mouth noted. GT site with old brown blood noted. Dressing done by wound care nurse. Generalized edema including faced noted. Norman in place draining scant amount of pale urine. IV to right AC G20 and left wrist G18 patent and asymptomatic. Bed in lowest position. Side rails up x3. Will resume plan of care.
--- NOTE | 2020-01-16 12:16 | Consultation ---
Consult Note Consult Note Asked to evaluate the patient at the request of Dr. Dong for renal failure and abnormal electrolytes. Patient known to me from her previous admissions here at [facility]. Emergency room note: HPI: 49-year-old female presents from long-term care facility for evaluation of hypoxia. Patient is trach and vent dependent for chronic respiratory failure, tube feed dependent, AO x0 baseline. Report from EMS states patient required increasing oxygen levels throughout the day to maintain saturations greater than 90%. Found hypoxic at 80% on their initial evaluation. Disconnected from ventilator and bagged up to the mid 90s. Patient shows increased work of breathing and coarse breath sounds. No reported fever. Last tested for COVID- 19 on 12/29 the results of which was negative. PMH: COPD, respiratory failure, CABG, thoracic aneurysm, kidney failure, decubitus ulcer among others PSH: Trach, G-tube Allergies: Reviewed Social Hx: Reviewed Allergies: Coded Allergies: No Known Allergies (Unverified , 10/10/17) COVID-19 Screening Contact w/high risk pt: Yes Experienced COVID-19 symptoms?: No Hx Cardiac Problems: Yes - HF, Hx Hypertension: Yes Hx Pacemaker: Yes - Left upper chest Hx Diabetes: Yes Hx Gastrointestinal Problems: Yes - gerd, gastrostomy Hx Neurological Problems: Yes - dysphagia, Hx Parkinson's Disease: Yes Hx Dysphasia: Yes General: Obtunded. Actively bagged by EMS HEENT: NC/AT. EOMI. Cardiovascular: Tachycardic Resp: Trach appears in place. Active bagging by EMS. Coarse breath sounds bilaterally. No wheezing. Abdomen: Abdomen is soft, nondistended. G-tube in place without surrounding infection or leakage MSK: Normal tone and bulk. No spontaneous movement Neuro: Obtunded. GCS 3. LABORATORY DATA: White count 26, hemoglobin 7.3. Sodium 130, potassium 3.7, bicarb 20, BUN 133, creatinine 4.5. Pro-natriuretic peptide over 35,000. ABG 7.44, 26, 80. . Assessment/Plan (1) JAVIER (acute kidney injury) (2) Renal failure (ARF), acute on chronic (3) Feeding by G-tube (4) Tracheostomy in place (5) Electrolyte imbalance, hyponatremia (6) Anemia, severe (7) Respiratory failure, acute and chronic (8) Elevated lipase, pancreatitis (9) Elevated troponin I (10) Sepsis suggestions; Patient to have dialysis catheter. Emergency dialysis for correction of uremia and electrolyte imbalances Antibiotics Transfusion Continue to monitor renal parameters Per orders Discussed with Johnny Jones MD Jan 16, 2020 12:16
--- NOTE | 2020-01-16 12:31 | NUR ---
NARROW FABRIC CALENDERER NOTE PT is non-verbal as trach dependent. PT is from [facility]. PT's last admission was 11/28/2019-12/12/2019. SW left a vm to pt's mother, Fely Lentz [phone] for call back. SW spoke w/ pt's sister, Agustina Brandon [phone] that the family is unable to reach Fely Lentz for years. Per Agustina, pt's grandmother, Radha could be the primary call or contact centre operator. Agustina will call this SW back with Radha's contact information. Agustina shares w/ this SW that the family members do not communicate to each other. Other emergency contact: Yazmin Silveira (aunt) [phone]
--- NOTE | 2020-01-16 12:36 | NUR ---
NURSE NOTES: Dr Saavedra inserted left groin Charlie with pigtail for emergency HD. Called [facility] for HD order for today. Notified Dr Dong regarding ABG result. Awaiting call back for new orders.
--- NOTE | 2020-01-16 12:40 | NUR ---
TABLET TESTER NOTE SW spoke w/ Lola from [facility] [phone] that pt does not have POA/AD. Lola also confirmed that pt's initial primary manager contact was Fely. There is a copy of POLST signed by pt in the chart.
--- NOTE | 2020-01-16 13:07 | Operative Note - PDOC ---
Operative Note Operative Note Date of Operation/Procedure: Jan 16, 2020 Pre-op Diagnosis: Renal insufficiency, altered mental status, acidosis, requiring dialysis Procedure: Left femoral temporary hemodialysis catheter insertion Post-op Diagnosis: same as pre-op Surgeon: Lane Saavedra MD Anesthesia: local Specimen: none Complications: none Condition: stable Fluids: See records Estimated Blood Loss: minimal Implant(s) used?: No Indications for Procedure 49-year-old female significant elevation BUN creatinine and hyperkalemia. Requiring urgent dialysis. Patient in the intensive care unit [facility] deteriorating requiring aggressive urgent intervention. Patient is full code. Patient is known to me from prior. Emergency catheter insertion indicated and recommended medically necessary. Case discussed with PCP and nephrology Description of Procedure Patient was made comfortable the bedside. Left groin was prepped draped in the same surgical fashion. Local anesthetic was infiltrated. The left femoral vein was cannulated for stick without complication good venous flow identified. Guidewire placed through the needle needle removed. Skin small skin lesion made around the guidewire and dilators were used. A temporary hemodialysis catheter was inserted over the guidewire and guidewire was removed and discarded. All ports of the catheter flushed and aspirated venous blood very well. Line was sutured in place dressings were applied. Patient taught procedure well. Hemodialysis urgently is planned. Lane Saavedra Jan 16, 2020 13:06
--- NOTE | 2020-01-16 13:10 | NUR ---
NURSE NOTES: Dr Mccauley assessed the GT site at bedside. Notified him that old brown blood noted from GT site as per wound care nurse and updated him with patient's current condition. Awaiting new orders to be entered.
[2020-01-16] MEDS ORDERED: Zinc Oxide Oint 2oz TOPIC PRN (13:15)
--- NOTE | 2020-01-16 13:22 | General Progress Note ---
Subjective ROS Limited/Unobtainable: No Allergies: Coded Allergies: No Known Allergies (Unverified , 10/10/17) Objective Last 24 Hour Vital Signs Date Time Temp Pulse Resp B/P (MAP) Pulse Ox O2 Delivery O2 Flow Rate FiO2 01/16/20 12:00 87 01/16/20 12:00 88 27 104/41 (62) 96 01/16/20 11:20 94 28 50 01/16/20 11:00 90 23 112/36 (61) 98 01/16/20 10:00 95 28 117/40 (65) 95 01/16/20 09:00 96 26 119/59 (79) 96 01/16/20 08:00 99.1 95 25 128/41 (70) 95 01/16/20 08:00 Mechanical Ventilator 01/16/20 08:00 88 01/16/20 07:14 96 28 50 01/16/20 07:00 96 24 127/47 (73) 95 01/16/20 06:30 94 25 01/16/20 06:00 95 25 128/44 (72) 95 01/16/20 05:00 94 25 107/41 (63) 94 01/16/20 04:00 95 01/16/20 04:00 Mechanical Ventilator 01/16/20 04:00 97.8 94 24 129/47 (74) 95 01/16/20 03:14 90 24 50 01/16/20 03:00 89 22 119/43 (68) 96 01/16/20 02:00 90 23 131/48 (75) 99 01/16/20 01:00 90 23 127/46 (73) 99 01/16/20 00:00 80 01/16/20 00:00 98.0 78 23 112/46 (68) 99 01/16/20 00:00 Mechanical Ventilator 01/15/20 23:01 76 23 50 01/15/20 23:00 78 23 113/41 (65) 99 01/15/20 22:39 15.0 60 01/15/20 22:36 Mechanical Ventilator 15.0 01/15/20 22:20 97.5 83 27 117/44 97 Mechanical Ventilator 15.0 60 01/15/20 22:00 72 23 130/46 (74) 99 01/15/20 21:45 97.5 80 23 139/43 (75) 99 01/15/20 21:44 90 01/15/20 19:08 88 33 60 01/15/20 18:08 101 32 100 01/15/20 17:40 99.1 85 29 114/78 100 Mechanical Ventilator 01/15/20 17:40 81 29 Mechanical Ventilator 01/15/20 17:38 99.1 95 23 136/90 (105) 96 Non-Rebreather 15.0 Intake and Output 01/15/20 01/16/20 19:00 07:00 Intake Total 3027.5 ml Output Total 0 ml Balance 3027.5 ml Intake Oral 0 ml IV Total 3027.5 ml Output Urine Total 0 ml Laboratory Tests 01/15/20 17:48: White Blood Count 23.8*H, Red Blood Count 2.69L, Hemoglobin 7.3L, Hematocrit 21.7L, Mean Corpuscular Volume 81, Mean Corpuscular Hemoglobin 27.3, Mean Corpu scular Hemoglobin Concent 33.8, Red Cell Distribution Width 13.5, Platelet Count 426, Mean Platelet Volume 4.4L, Neutrophils (%) (Auto) , Lymphocytes (%) (Auto) , Monocytes (%) (Auto) , Eosinophils (%) (Auto) , Basophils (%) (Auto) , D ifferential Total Cells Counted 100, Neutrophils % (Manual) 88H, Lymphocytes % (Manual) 8L, Monocytes % (Manual) 3, Eosinophils % (Manual) 1, Basophils % (Manual) 0, Band Neutrophils 0, Platelet Estimate IncreasedH, Platelet Morphology Normal, Hypochromasia 2+, Anisocytosis 1+, Microcytosis 1+, Prothrombin Time 16.3H, Prothromb Time International Ratio 1.5H, Activated Partial Thromboplast Time 38H, D-Dimer 14.28H, Sodium Level 103*L, Potassium Level 5.4H, Chloride Level 66L, Carbon Dioxide Level 14L, Anion Gap 24H, Blood Urea Nitrogen 233H, Creatinine 6.7H, Estimat Glomerular Filtration Rate 6.6, Glucose Level 100, Lactic Acid Level 0.70, Calcium Level 10.2H, Phosphorus Level 9.1H, Magnesium Level 4.1H, Ferritin 1132H, Total Bilirubin 0.5, Aspartate Amino Transf (AST/SGOT) 24, Alanine Aminotransferase (ALT/SGPT) 10L, Alkaline Phosphatase 252H, Lactate Dehydrogenase 140, Total Creatine Kinase 87, Creatine Kinase MB 5.8H, Creatine Kinase MB Relative Index 6.6, Troponin I 0.299H, C- Reactive Protein, Quantitative 21.8H, Pro-B-Type Natriuretic Peptide > 92208Y, Total Protein 7.1, Albumin 2.4L, Globulin 4.7, Albumin/Globulin Ratio 0.5L, Lipase > 2000H 01/15/20 17:52: Arterial Blood pH 7.252L, Arterial Blood Partial Pressure CO2 30.7L, Arterial Blood Partial Pressure O2 119.1H, Arterial Blood HCO3 13.2*L, Arterial Blood Oxygen Saturation 97.8, Arterial Blood Base Excess -12.8*L, Rojas Test Positive 01/15/20 20:55: Sodium Level 105*L, Potassium Level 4.9, Chloride Level 68L, Carbon Dioxide Level 14L, Anion Gap 23H, Blood Urea Nitrogen 242H, Creatinine 6.7H, Estimat Glomerular Filtration Rate 6.6, Glucose Level 140H, Calcium Level 9.8 01/15/20 23:05: Sodium Level 105*L, Potassium Level 5.5H, Chloride Level 68L, Carbon Dioxide Level 17L, Anion Gap 21H, Blood Urea Nitrogen 232H, Creatinine 6.9H, Estimat Glomerular Filtration Rate 6.4, Glucose Level 99, Calcium Level 10.0 01/16/20 03:00: White Blood Count 15.8H, Red Blood Count 2.12L, Hemoglobin 5.9*L, Hematocrit 16.3L, Mean Corpuscular Volume 77L, Mean Corpuscular Hemoglobin 27.8, Mean Corpuscular Hemoglobin Concent 36.2H, Red Cell Distribution Width 15.1H, Platelet Count 324, Mean Platelet Volume 4.5L, Neutrophils (%) (Auto) , Lymphocytes (%) (Auto) , Monocytes (%) (Auto) , Eosinophils (%) (Auto) , Basophils (%) (Auto) , Differential Total Cells Counted 100, Neutrophils % (Manual) 93H, Lymphocytes % (Manual) 6L, Monocytes % (Manual) 1, Eosinophils % (Manual) 0, Basophils % (Manual) 0, Band Neutrophils 0, Platelet Estimate Adequate, Platelet Morphology Normal, Hypochromasia 1+, Anisocytosis 1+, Microcytosis 2+, Sodium Level 110*L, Potassium Level 5.4H, Chloride Level 72L, Carbon Dioxide Level 14L, Anion Gap 24H, Blood Urea Nitrogen 226H, Creatinine 6.8H, Estimat Glomerular Filtration Rate 6.5, Glucose Level 99, Calcium Level 9.7 01/16/20 08:20: Sodium Level 113*L, Potassium Level 5.2H, Chloride Level 77L, Carbon Dioxide Level 13L, Anion Gap 24H, Blood Urea Nitrogen 230H, Creatinine 7.0H, Estimat Glomerular Filtration Rate 6.3, Glucose Level 94, Calcium Level 9.7, Osmolality 330H, Uric Acid 8.9H, Phosphorus Level 9.2H, Magnesium Level 3.9H, Iron Level [Pending], Unsaturated Iron Binding [Pending], Total Bilirubin 0.5, Aspartate Amino Transf (AST/SGOT) 20, Alanine Aminotransferase (ALT/SGPT) 11L, Alkaline Phosphatase 203H, Total Protein 6.7, Albumin 2.2L, Globulin 4.5, Albumin/Globulin Ratio 0.5L, Triglycerides Level 58, Cholesterol Level 58, LDL Cholesterol 39, HDL Cholesterol 11L, Cholesterol/HDL Ratio 5.3H, Vitamin B12 Level [Pending], Folate [Pending], Thyroid Stimulating Hormone (TSH) 0.640 01/16/20 09:57: Arterial Blood pH 7.280L, Arterial Blood Partial Pressure CO2 24.3*L, Arterial Blood Partial Pressure O2 80.1, Arterial Blood HCO3 11.2*L, Arterial Blood Ox ygen Saturation 94.4L, Arterial Blood Base Excess -14.3*L, Rojas Test Positive 01/16/20 11:30: Urine Osmolality [Pending], Urine Random Sodium [Pending] Height (Feet): 5 Height (Inches): 6.00 Weight (Pounds): 150 General Appearance: lethargic EENT: normal ENT inspection Neck: normal alignment Cardiovascular: bradycardia Respiratory/Chest: decreased breath sounds Extremities: non-tender Assessment/Plan Problem List: (1) Hx of CABG ICD Codes: Z95.1 - Presence of aortocoronary bypass graft SNOMED: 581699797, 989116464 (2) History of tracheostomy ICD Codes: Z98.890 - Other specified postprocedural states SNOMED: 984755640, 701709116 (3) PEG (percutaneous endoscopic gastrostomy) status ICD Codes: Z93.1 - Gastrostomy status SNOMED: 741091808, 047073935 (4) S/P aortic dissection repair ICD Codes: Z98.890 - Other specified postprocedural states SNOMED: 084923716, 324351911 (5) Renal failure ICD Codes: N19 - Unspecified kidney failure SNOMED: 57646166, 648084875 (6) Anemia ICD Codes: D64.9 - Anemia, unspecified SNOMED: 194036735 Assessment/Plan: not stable for GI procedures vit K ppi blood transfusion fu labs EGD when more stable GT topical care HD per nephrology Inder Mccauley MD Jan 16, 2020 13:22
[2020-01-16 13:44] LABS: % IRON SATURATION 24 % (15-50); IRON 51 ug/dL (50-175); TOTAL IRON BINDING CAPACITY 211 ug/dL (250-450)
--- NOTE | 2020-01-16 14:22 | NUR ---
NURSE NOTES:WOUND CARE NOTES:pt presented on admission with Tracheostomy ,GT and Multiple Pressure Injuries. Skin assessment of skin under tracheal collar without evidence of skin breakdown. Peristomal GT site excoriated.Moderate amt of dark red sanguineous exudate. Full Thickness Sacral Pressure Injury with undermined borders (L)9 cm x (W)12cm x (D)1.8cm,Undermining clockwise8-9 by 2.2cm @1o'clock,undermining clockwise 1-4 by 1.9 @ 9'oclock Scattered necrotic tissue within wound bed. Borders are loose and necrotic with marginal erythema to outer perimeter of wound. NO elevation in skin temp noted periwound. Wound is malodorous. Small amt Brown exudate noted. Resolving Pressure Injury L Ischium(L)1.5cm x (W)1.5cm. Base of wound is 80% pink epithelial with an area that is moist and pink. NO odor or exudate noted. Bilat foot-drop noted. L Heel is boggy with non-blanchable erythema(L)4cm x (W)4cm. R heel is boggy with non-Blanchable erythema(L)5cm x (W)6cm. Tx.Plan: Cleanse sacral wound with Dakin's 0.125% annie. Loosely pack with Dakin's moistened Kerlix(Attention to undermined borders). Apply Moisture Barrier Paste periwound. Cover with Optifoam drsg. Change Daily and PRN. Apply Cavilon Skin Barrier to R and L Hels. Cover each heel with Optifoam drsg. Change every 7 days and prn. Reposition at least every 2hours or as tolerated. Off-load heels with Pillow. APM/JENNIFER MAttress overlay
[2020-01-16] MEDS ORDERED: Phytonadione 1 MG in D5W 55 ML IVPB ONE (14:30)
--- NOTE | 2020-01-16 14:55 | NUR ---
NURSE NOTES: Zinc Oxide cream applied to G tube site as ordered.
--- NOTE | 2020-01-16 15:26 | NUR ---
NURSE NOTES: Notified Dr Dong regarding ABG result. Awaiting call back for new orders.
--- NOTE | 2020-01-16 16:09 | NUR ---
NURSE NOTES: Dialysis nursed at bedside, dialyzing patient.
--- NOTE | 2020-01-16 16:28 | Diagnostic Imaging Report ---
Indication: Reason For Exam: ABD PAIN Technique: Grayscale and duplex images of the bilateral lower extremity veins Comparison: 09/17/2019 Findings: Bilaterally, grayscale and duplex images demonstrate no evidence of intraluminal thrombus. Normal phasic Doppler waveforms, demonstrating normal augmentation response and no evidence of valvular insufficiency. Greater saphenous vein(s) and tibial veins are patent. Normal compressibility. No significant change Impression: Negative for evidence of lower extremity deep venous thrombosis bilaterally
--- NOTE | 2020-01-16 17:00 | NUR ---
NURSE NOTES: Patient desaturated to late 80's. FiO2 increased to 100% by RT during dialysis. 2 units pRBC are transfusing during dialysis by dialysis nurse.
--- NOTE | 2020-01-16 18:00 | NUR ---
NURSE NOTES: 2 units of pRBC transfusion completed by dialysis nurse at 1800. No adverse transfusion reaction noted. Patient is still getting dialyzed at bedside.
--- NOTE | 2020-01-16 19:27 | NUR ---
NURSE HAND-OFF REPORT: Latest Vital Signs: Temperature 98.1 , Pulse 99 , B/P 113 /49 , Respiratory Rate 24 , O2 SAT 92 , Mechanical Ventilator, O2 Flow Rate . Vital Sign Comment: EKG Rhythm: Sinus Rhythm Rhythm change?: N MD Notified?: MD Response: Latest Chavarria Fall Score: 70 Fall Risk: High Risk Safety Measures: Call light Within Reach, Bed Alarm Zone 2, Side Rails Side Rails x2, Bed position Low and Locked. Fall Precautions: Yellow Socks Door Sign Patient Fall Education Report given to ERASMO Starr.
--- NOTE | 2020-01-16 19:30 | NUR ---
NURSE NOTES: Received report from Eli ZIMMERMAN
--- NOTE | 2020-01-16 20:00 | NUR ---
NURSE NOTES: patient in bed with eyes open, able to trach. trach to vent. Shiley 7 XLT, AC 20, TV500 fi02 80 % peep 5 satting 100%. HOB elevated. GT intact. GT site noted with excoriation,placed GT dressing. NPO. GT intact no residual. Norman intact with poor output. body assessment done. patient with generalized edema, facial edema and lower extremities pitting edema +3. bilateral extremities elevated with pillows. Right AC#20 and Left Wrist #18 intact no s/s of infiltration. Left Femoral Charlie cath with pigtail dressing intact.Contact isolation maintained and observed. Covid swab pending PUI. no fever. Call light within easy reach. bed alarm on. bed locked and in low position. will continue plan of care.
[2020-01-16] MEDS ORDERED: Dyna-Hex 2% Top Sol 2oz TOPIC SCH (21:00)
--- NOTE | 2020-01-16 21:45 | History and Physical Report ---
DATE OF ADMISSION: 01/15/2020 This is one of several admissions to [facility] for this 49-year-old lady because of severe renal failure and sepsis. HISTORY OF PRESENT ILLNESS: Patient was discharged several weeks ago from this hospital in stable condition with chronic renal failure, but without the need for dialysis to an extended care facility subacute unit. She was doing well until 2 days prior to the present admission. She was followed closely in regard to her renal function. Her urine output and her BMP were satisfactory. However, in the last several days, no blood could be withdrawn from the patient because of technical difficulties while patient was clinically stable. On the day of admission, she rapidly deteriorated. In regard to her mental status and respiratory distress, she was transferred to [facility] ER where she was found to have BUN of 242 and creatinine of 6.6. Sodium is 103, chloride of 66, and potassium of 5.4. Her hemoglobin was 7.3 and hematocrit was 21.7 with WBC of 23,8000. Patient was transferred to ICU and received 3% sodium chloride in attempt to correct the severe hyponatremia. PAST MEDICAL HISTORY: The patient has a long history of respiratory failure that had to be intubated and placed on mechanical ventilation. She had several episodes for which she was admitted to [facility]. One of them she was nearly a terminal case. She had fracture nondisplaced of the left femur. She had the pacemaker inserted in this hospital more than 1 year ago and has chronic psychosis and mood disorder that was difficult to control. ALLERGIES: No known drug allergies. MEDICATIONS: Currently patient is on piperacillin and tazobactam 3.375 g IV piggyback q.12 as well as vancomycin 1 g IV piggyback on a p.r.n. basis pending vancomycin blood level. In addition, patient is on pantoprazole 40 mg IV piggyback q.12. She is on zinc oxide topically daily. She is on metoclopramide 5 mg IV piggyback q8. FAMILY HISTORY: Noncontributory. Her mother is alive, but patient is not in touch with her mother. SOCIAL HISTORY: She is single. She was born in [place]. She has been on SSI for many years. Prior to the appearance of her total disability, she was unemployed as well because of chronic psychosis. HABITS: Patient did not smoke, drink, or use illicit drugs. REVIEW OF SYSTEMS: Patient is unable to give any information regarding her state of health. PHYSICAL EXAMINATION: VITAL SIGNS: Blood pressure is 104/31, pulse is 94, respirations 24, temperature 98.1. HEENT: Eyes were normal. Pupils were round, equal, and reactive to light. Sclerae was white. Conjunctivae were pale. Extraocular movement were normal. Temporal arteries were palpable bilaterally. There was bilateral temporal wasting. Visual field to confrontation. Neglect sign could not be assessed. ENT, mucous membranes were not dehydrated. Auditory canals were clear and tympanic membranes could not be visualized. Nasal cavity was not congested. Nasal septum was intact. Soft palate, pharynx, and uvula could not be visualized. Tongue was moist, midline, and normally papillated. NECK: Supple. There was no goiter. No mass. No lymphadenopathy. There was no JVD. No bruits. Carotid upstroke was 2+. LUNGS: Bilateral rhonchi at both bases. HEART: PMI was fifth left intercostal space midclavicular line. There was normal S1 and normal S2. There was near tachycardia at rest. ABDOMEN: Soft, nontender with normal bowel sounds. Gastrostomy site is clean. There was no guarding. No rebound tenderness. No ascites. No hernia. No CVA tenderness. Liver span was 8 cm, smooth, and nontender. EXTREMITIES: No cyanosis, no clubbing. There was 1+ edema. NEUROLOGICAL: Reflexes in biceps, triceps, and brachioradialis were present. Patellar retinaculum was present. Plantars were in flexion. Cranial nerves II through XII were symmetric and equal. Cerebellar function, there was no tremor. No nystagmus. No extrapyramidal rigidity. Sensory exam to pinprick, cotton touch, and position grossly done. The patient is in near coma, but no focal deficit was found. LABORATORY DATA: Her hemoglobin is 7.3, hematocrit 21.7, MCV of 81, WBC of 23.8, and platelets of 426. Her BUN and creatinine is 233 and 6.7. Her sodium is 103, potassium 5.4, chloride 66, and CO2 was 14. Following treatment by hypertonic saline, her sodium now is 113, potassium is 5.2, chloride 77, CO2 is 18. Her BUN is 230 and creatinine is 7.0. Her uric acid is 8.9. Her calcium is 9.7. Phosphorus 7.2 and magnesium is 3.9. Iron, total iron-binding capacity, and ferritin are normal. SGOT, SGPT, and alkaline phosphatase are normal or near normal. Albumin is 2.2 and total protein is 7.7. There was no deficiency in vitamin B12 or folate. TSH was normal. Her venous duplex scan is negative. Chest x-ray shows bilateral interstitial infiltrates. COVID-19 test is negative. PLAN: Multiple consultants were consulted in management of this case. Nephrology furniture rental consultant was called as well as general surgeon to Charlie catheter. Infectious Disease furniture rental consultant was called as well. Hematology furniture rental consultant was called as well. Repeat laboratory tests and chest x-ray will be done in the a.m. Lucas Dong M.D. DR: RENY JOB#: [id number] CC:
--- NOTE | 2020-01-16 22:00 | NUR ---
NURSE NOTES: patient in bed resting. no s/s of acute distress noted. suctioned with velasco thick secretion. HOB elevated. no fever. no diarrhea, no n/v. turned and repositioned patient for wound management. with pillow support. will continue plan of care.
[2020-01-17] VITALS (33 sets, daily range): BP systolic 105–150; BP diastolic 51–87
--- NOTE | 2020-01-17 | NUR ---
NURSE NOTES: bed bath given tolerated well.
--- NOTE | 2020-01-17 01:31 | NUR ---
NURSE NOTES: Left femoral Charlie cath dressing changed.
[2020-01-17 05:22] LABS: HEMOGLOBIN 7.3 G/DL (12.0-16.0); MEAN CORPUSCULAR VOLUME 77 FL (80-99); PLATELET COUNT 294 K/UL (150-450); RED CELL DISTRIBUTION WIDTH 14.7 % (11.6-14.8)
[2020-01-17 05:26] LABS: INR 1.3 (0.9-1.1)
--- NOTE | 2020-01-17 05:30 | NUR ---
NURSE NOTES: patient in bed with eyes open, able to trach. trach to vent. Shiley 7 XLT, AC 20, TV500 fi02 40 % peep 5 satting 100%. HOB elevated. GT intact. NPO. GT intact no residual. Norman intact with poor output. patient with generalized edema, facial edema and lower extremities pitting edema +3. bilateral extremities elevated with pillows. Right AC#20 and Left Wrist #18 intact no s/s of infiltration. Left Femoral Charlie cath with pigtail dressing intact.Contact isolation maintained and observed. Covid swab pending PUI. no fever. Call light within easy reach. bed alarm on. bed locked and in low position. will continue plan of care.
[2020-01-17 05:40] LABS: WHITE BLOOD COUNT 25.9 K/UL (4.8-10.8)
[2020-01-17 05:49] LABS: ALBUMIN 2.6 G/DL (3.4-5.0); ALBUMIN/GLOBULIN RATIO 0.6 (1.0-2.7); BILIRUBIN,TOTAL 0.5 MG/DL (0.2-1.0); CALCIUM 9.5 MG/DL (8.5-10.1); CREATININE 4.5 MG/DL (0.55-1.30); POTASSIUM 3.7 MMOL/L (3.5-5.1)
[2020-01-17 05:51] LABS: PHOSPHORUS 5.8 MG/DL (2.5-4.9)
[2020-01-17] MEDS: Zosyn 3.375gm in NS 110ml IVPB SCH (06:00)
--- NOTE | 2020-01-17 07:30 | NUR ---
HAND-OFF: Report given to ERASMO Galvez.
--- NOTE | 2020-01-17 08:01 | NUR ---
NURSE NOTES: Report received from ERASMO Starr. Pt lying comfortably in semi-fowlers with no signs of distress. A+Ox0, has eyes open, but does not track with eyes, and does not follow commands. Respirations even and labored on mech vent. Shiley 7xlt noted with settings of AC20, VT 500, 40% Fio2, and peep of 5. Sinus tachy on the monitor 102 beats/min. GT noted and pt NPO as of now d/t previous bleeding from the site. Abdomen soft. No signs of pain at this time. 2 IVs patent, running TKO. Norman noted and patent, draining brown urine at foot of bed. Left femoral arden cath noted. Generalized edema noted. Pt has sacral pressure injury, covered in optifoam, dry and intact. Head of bed @ 30 degrees. Bed is in lowest position, brakes engaged, siderails x2, bed alarm on, and call light within reach. Pt in stable condition; will continue to monitor .
[2020-01-17] MEDS: Pantoprazole Inj IV SCH ×2 (08:11→20:14)
--- NOTE | 2020-01-17 09:21 | Infectious Diseases Prog Note ---
Assessment/Plan 49yo F with: AF Sepsis Leukocytosis to 23 Hypoxia on vent Pneumonia c/b L pleural effusion (recurrent, prior determined to be transudative) Volume overload, BNP >35,0000, likely 2/2 progressive CKD --> ESRD ?Pancreatitis, Lipase >2000 Acute anemia to 5s CONS bacteremia, ?contaminant Aflutter w/ RVR 01/13 BCx 2/2 +CONS COVID PCR p Flu neg CXR: Large left pleural effusion. Bilateral interstitial and airspace infiltrates versus edema MRSA nares neg 01/16 BCx p JAVIER on CKD On previous admission Sep-Oct 2019 required HD for short period Going to start HD this admission again R/o COVID 01/14 COVID PCR p 12/29 neg at SN[facility] per report H/o UTI 11/27 u/a wbc 30-40, nit neg, leuk +3; ucx ESBL P. mirablis, ESBL M. morganii 09/15/19 u/a wbc tnct, nit neg, leuk +3; ucx >100k MDR P. stuarti (S Ceftriaxone, Meropenem) 10/07 u/a wbc tnct, nit neg, leuk ; ucx >100k VRE 10/15/19 u/a wbc tnct; ucx >100k ESBL P. stuarti (S ertapenem, aztreonam) H/o transudative pleural effusion 11/28 Sp Thora (w: 169, PMN: 2%, L: 49% , LDH: 57, prot 2.5); cx Neg H/o PNA 10/15/19 Resp cx ESBL P. mirabilis, MDR P.a. (S only to Gent) 09/22 Resp cx + MDR PsA (S-gent; I-colistin; R-levofloxacin, Zosyn, angelo) 09/16/19 Sp cx ESBL P. mirablis H/o PPM site (pocket) infection and pocket abscess 2ry to S. epi-11/2018, sp >6weeks IV vancomycin 11/27 SP ABBIE: no evidence for vegetation on any of the valves 11/26/18 SP PPM removal: OR findings:The fibrous capsule enclosing the generator was then opened and there was a [id number] amount of yellowish fluid drainage. The generator was then removed.Atrial and ventricular leads were detached. The necrotic tissue of the pocket was then removed and the pocket was flushed with an antibiotic solution. Capsule, wound tissue and lead tip cx: Neg 2d echo: no vegetation seen US chest: 4.6 x 3.4 x 0.9 cm hypoechoic/anechoic area overlying left chest pacemaker power pack. This could represent either a discrete fluid collection or a focal area of very edematous tissue. Infected fluid pocket also possible. 11/18 Bcx 3/ S. epi; 11/20 Bcx neg; 11/24 Bcx Neg; 11/27 Bcx Neg CAD s/p CABG GERD/gastritis Afib HTN Dysphagia sp GT Aortic dissection s/p repair 2018 S/p PPM Parkinson's Disease Schizophrenia Anxiety COPD Chronic resp failure s/p trach Hx of tracheal bleeding NH resident ([facility]) VRE and MRSA colonized Plan: Stop Zosyn #2 Start meropenem #1 given worsening WBc and h/o resistant organisms Cont vanco #3 given CONS bacteremia, f/u repeat BCx Repeat BCx today Recommend volume removal given BNP >35k, agree with HD initiation ?Pancreatitis, lipase >2000, appreciate GI input F/u BCx 01/14, 01/16 F/u COVID PCR 01/14 01/14 SP dex 10mg in ED 12/10 SP IV Gentamycin #10 12/07 SP Meropenem #10 12/01 SP IV Vancomycin #5 11/28 Sp Cefepime #2 and IV Gentamycin x1 Monitor CBC/CMP Monitor temp curve, hemodynamics Monitor resp status D/w RN Thank you for this consult. [facility] will continue to follow. Subjective Allergies: Coded Allergies: No Known Allergies (Unverified , 10/10/17) AF WBc up to 25 BCx +CONS from admission Started on HD Remains on vent In Aflutter with RVR this morning, starting dilt Objective Last 24 Hour Vital Signs Date Time Temp Pulse Resp B/P (MAP) Pulse Ox O2 Delivery O2 Flow Rate FiO2 01/17/20 07:30 104 24 144/56 (85) 95 01/17/20 07:00 106 21 140/66 (90) 97 01/17/20 06:30 104 25 01/17/20 06:00 107 23 135/55 (81) 96 01/17/20 05:00 108 22 140/54 (82) 94 01/17/20 04:00 Mechanical Ventilator 01/17/20 04:00 100 01/17/20 04:00 99.0 108 22 149/54 (85) 95 01/17/20 03:14 106 23 40 01/17/20 03:00 106 25 139/59 (85) 96 01/17/20 02:00 108 21 125/57 (79) 99 01/17/20 01:00 103 21 133/53 (79) 100 01/17/20 00:30 100 20 122/51 (74) 100 01/17/20 00:00 Mechanical Ventilator 01/17/20 00:00 100 22 129/60 (83) 100 01/16/20 23:58 101 23 60 01/16/20 23:30 101 20 128/62 (84) 100 01/16/20 23:00 99 22 124/48 (73) 100 01/16/20 22:30 98 23 124/46 (72) 100 01/16/20 22:00 96 23 119/47 (71) 100 01/16/20 21:00 96 24 119/43 (68) 100 01/16/20 20:00 100 01/16/20 20:00 Mechanical Ventilator 01/16/20 20:00 77 01/16/20 20:00 98.9 94 23 118/41 (66) 100 01/16/20 19:34 95 26 80 01/16/20 19:00 99 24 113/49 (70) 92 01/16/20 18:00 102 29 109/46 (67) 97 01/16/20 18:00 102 25 111/46 (67) 96 01/16/20 17:00 103 28 94/40 (58) 92 01/16/20 17:00 100 01/16/20 16:44 50 01/16/20 16:00 Mechanical Ventilator 01/16/20 16:00 98.1 84 24 104/31 (55) 95 01/16/20 15:28 82 01/16/20 15:00 50 01/16/20 15:00 85 25 116/36 (62) 99 01/16/20 14:50 86 25 50 01/16/20 14:00 86 30 116/36 (62) 96 01/16/20 13:40 60 01/16/20 13:00 83 21 107/38 (61) 96 01/16/20 12:00 Mechanical Ventilator 01/16/20 12:00 87 01/16/20 12:00 15.0 60 01/16/20 12:00 88 27 104/41 (62) 96 01/16/20 12:00 98.6 01/16/20 11:20 94 28 50 01/16/20 11:00 90 23 112/36 (61) 98 01/16/20 10:00 95 28 117/40 (65) 95 Height (Feet): 5 Height (Inches): 6.00 Weight (Pounds): 150 Gen: NAD HEENT: NCAT, +trach Pulm: BL chest rise on vent Abd: Non-distended, +PEG Ext: No c/c/e Skin: No visible rashes Neuro: Awake Microbiology Date/Time Source Procedure Growth Status 01/15/20 19:30 Rectum Received 01/15/20 19:30 Nasal Nares MRSA Culture - Final NO METHICILLIN RESISTANT STAPH AUREUS... Complete 01/15/20 18:14 Nasal Nares - Final Complete 01/15/20 18:14 Nasal Nares - Final Complete 01/15/20 17:48 Blood Blood Culture - Preliminary Staphylococcus Sp Coag Neg Resulted 01/15/20 17:38 Blood Blood Culture - Preliminary Staphylococcus Sp Coag Neg Resulted Laboratory Tests Test 01/16/20 09:57 01/16/20 11:30 01/16/20 14:40 01/17/20 04:10 Arterial Blood pH 7.280 (7.350-7.450) 7.237 (7.350-7.450) Arterial Blood Partial Pressure CO2 24.3 mmHg (35.0-45.0) *L 28.4 mmHg (35.0-45.0) L Arterial Blood Partial Pressure O2 80.1 mmHg (75.0-100.0) 168.6 mmHg (75.0-100.0) H Arterial Blood HCO3 11.2 mmol/L (22.0-26.0) *L 11.8 mmol/L (22.0-26.0) *L Arterial Blood Oxygen Saturation 94.4 % (95-100) L 99.2 % (95-100) Arterial Blood Base Excess -14.3 (-2-2) *L -14.3 (-2-2) *L Rojas Test Positive Positive Urine Osmolality 304 mOsm/kg (429-449) L Urine Random Sodium 152 mmol/L (20-110) H White Blood Count 25.9 K/UL (4.8-10.8) #*H Red Blood Count 2.60 M/UL (4.20-5.40) L Hemoglobin 7.3 G/DL (12.0-16.0) L Hematocrit 20.0 % (37.0-47.0) L Mean Corpuscular Volume 77 FL (80-99) L Mean Corpuscular Hemoglobin 28.0 PG (27.0-31.0) Mean Corpuscular Hemoglobin Concent 36.4 G/DL (32.0-36.0) H Red Cell Distribution Width 14.7 % (11.6-14.8) Platelet Count 294 K/UL (150-450) Mean Platelet Volume 4.6 FL (6.5-10.1) L Neutrophils (%) (Auto) % (45.0-75.0) Lymphocytes (%) (Auto) % (20.0-45.0) Monocytes (%) (Auto) % (1.0-10.0) Eosinophils (%) (Auto) % (0.0-3.0) Basophils (%) (Auto) % (0.0-2.0) Neutrophils % (Manual) Pending Lymphocytes % (Manual) Pending Platelet Estimate Pending Platelet Morphology Pending Prothrombin Time 14.3 SEC (9.30-11.50) H Prothromb Time International Ratio 1.3 (0.9-1.1) H Sodium Level 130 MMOL/L (136-145) #L Potassium Level 3.7 MMOL/L (3.5-5.1) Chloride Level 89 MMOL/L (98-107) L Carbon Dioxide Level 20 MMOL/L (21-32) L Anion Gap 21 mmol/L (5-15) H Blood Urea Nitrogen 133 mg/dL (7-18) #H Creatinine 4.5 MG/DL (0.55-1.30) H Estimat Glomerular Filtration Rate 10.5 mL/min (>60) Glucose Level 67 MG/DL (74-106) L Uric Acid 6.5 MG/DL (2.6-7.2) Calcium Level 9.5 MG/DL (8.5-10.1) Phosphorus Level 5.8 MG/DL (2.5-4.9) H Magnesium Level 3.4 MG/DL (1.8-2.4) H Total Bilirubin 0.5 MG/DL (0.2-1.0) Aspartate Amino Transf (AST/SGOT) 23 U/L (15-37) Alanine Aminotransferase (ALT/SGPT) 10 U/L (12-78) L Alkaline Phosphatase 203 U/L (46-116) H C-Reactive Protein, Quantitative 24.0 mg/dL (0.00-0.90) H Pro-B-Type Natriuretic Peptide > 19155 pg/mL (0-125) H Total Protein 7.1 G/DL (6.4-8.2) Albumin 2.6 G/DL (3.4-5.0) L Globulin 4.5 g/dL Albumin/Globulin Ratio 0.6 (1.0-2.7) L Lipase 1171 U/L (73-393) H Random Vancomycin Level 10.1 ug/mL Current Medications Medications (Trade) Dose Ordered Sig/Penny Route PRN Reason Start Time Stop Time Status Last Admin Dose Admin Chlorhexidine Gluconate (Ling-Hex 2%) 1 applic DAILY@2000 TOPIC 01/17/20 20:00 04/16/20 19:59 Dextrose (Dextrose 50%) 25 ml Q30M PRN IV Hypoglycemia 01/15/20 22:15 04/14/20 22:14 Dextrose (Dextrose 50%) 50 ml Q30M PRN IV Hypoglycemia 01/15/20 22:15 04/14/20 22:14 Metoclopramide HCl (Reglan) 5 mg Q6H PRN IVP Nausea & Vomiting 01/15/20 22:15 02/14/20 22:14 Pantoprazole (Protonix) 40 mg EVERY 12 HOURS IV 01/16/20 09:00 02/15/20 08:59 01/17/20 08:11 Piperacillin Sod/ Tazobactam Sod 3.375 gm/Sodium Chloride 110 ml @ 27.5 mls/hr Q12H IVPB 01/16/20 07:00 01/23/20 06:59 01/17/20 06:00 Sodium Chloride 250 ml @ 30 mls/hr ONCE ONCE IV 01/17/20 10:00 01/17/20 18:19 Vancomycin HCl (Vanco pharmacy to dose) 1 ea DAILY PRN MISC Per rx protocol 01/15/20 22:15 02/14/20 22:14 Vancomycin HCl 1 gm/Dextrose 275 ml @ 183.708 mls/hr NOW ONCE IVPB 01/17/20 10:00 01/17/20 11:29 Zinc Oxide (Zinc Oxide) 1 applic TIDPRN PRN TOPIC diogenes GT 01/16/20 13:15 04/15/20 13:14 01/16/20 14:55 Ro Pack M.D. Jan 17, 2020 09:21
--- NOTE | 2020-01-17 09:43 | Hematology/Onc Progress Note ---
Assessment/Plan Assessment/Plan Assessment and Recs # Leukocytosis, now with pna v other process --> Cxr: : Large left pleural effusion, Bilateral interstitial and airspace infiltrates versus edema --> wbc 16-->26 --> ABX zosyn-->angelo/vanc --> ID recs are noted # Anemia of chronic disease due to underlying chronic medical issues, multifactorial --> Anemia workup has been reviewed, cw acd --> No evidence of hemolysis is noted, peripheral smear has been reviewed. --> Hgb goal >7. Transfuse prn. --> Epogen required in prior --> Medications have been reviewed --> low threshold for gi evaluation in case has occult + --> hgb 7.1-->7.8-->>>5.9-->7.3 --> 1 unit prbc10/17, 2 units 12/3 --> gi eval as needed # Coagulopathy with inr 1.5 --> consider vit k/ffp as needed preprocedure --> labs noted # JAVIER initially >2 --> on ivfs --> per renal # Elevated d-dimer --> venous duplex ordered --> in prior neg # Dysphagia s/p peg --> as per gi # Thoracic aortic dissection --> s/p repair early 2017 # Chronic Resp failure -> s/p trach/vent # Psychiatric history on ativan/haldol # [place] resident # Dvt ppx --> scds The timing of this note does not necessarily reflect the time of the patient was seen. Greatly appreciate consultation. Subjective Constitutional: Denies: no symptoms, chills, fever, malaise, weakness, other HEENT: Denies: no symptoms, eye pain, blurred vision, tearing, double vision, ear pain, ear discharge, nose pain, nose congestion, throat pain, throat swelling, mouth pain, mouth swelling, other Respiratory: Denies: no symptoms, cough, shortness of breath, SOB with excertion, SOB at rest, sputum, wheezing, other Genitourinary: Denies: no symptoms, burning, discharge, frequency, flank pain, hematuria, incontinence, pain, urgency, other Neurologic/Psychiatric: Denies: no symptoms, anxiety, depressed, emotional problems, headache, numbness, paresthesia, pre-existing deficit, seizure, tingling, tremors, weakness, other Endocrine: Denies: no symptoms, excessive sweating, flushing, intolerance to cold, intolerance to heat, increased hunger, increased thirst, increased urine, unexplained weight gain, unexplained weight loss, other Allergies: Coded Allergies: No Known Allergies (Unverified , 10/10/17) Subjective 01/16 left femoral arden in place, on vent, icu, hgb better Objective Objective Current Medications Medications (Trade) Dose Ordered Sig/Penny Route PRN Reason Start Time Stop Time Status Last Admin Dose Admin Chlorhexidine Gluconate (Ling-Hex 2%) 1 applic DAILY@1999 TOPIC 01/17/20 20:00 04/16/20 19:59 Dextrose (Dextrose 50%) 25 ml Q30M PRN IV Hypoglycemia 01/15/20 22:15 04/14/20 22:14 Dextrose (Dextrose 50%) 50 ml Q30M PRN IV Hypoglycemia 01/15/20 22:15 04/14/20 22:14 Meropenem 500 mg/ Sodium Chloride 55 ml @ 110 mls/hr Q24H IVPB 01/17/20 10:30 01/22/20 10:29 Metoclopramide HCl (Reglan) 5 mg Q6H PRN IVP Nausea & Vomiting 01/15/20 22:15 02/14/20 22:14 Pantoprazole (Protonix) 40 mg EVERY 12 HOURS IV 01/16/20 09:00 02/15/20 08:59 01/17/20 08:11 Sodium Chloride 250 ml @ 30 mls/hr ONCE ONCE IV 01/17/20 10:00 01/17/20 18:19 01/17/20 09:32 Vancomycin HCl (Vanco pharmacy to dose) 1 ea DAILY PRN MISC Per rx protocol 01/15/20 22:15 02/14/20 22:14 Vancomycin HCl 1 gm/Dextrose 275 ml @ 183.708 mls/hr NOW ONCE IVPB 01/17/20 10:00 01/17/20 11:29 01/17/20 09:33 Zinc Oxide (Zinc Oxide) 1 applic TIDPRN PRN TOPIC diogenes GT 01/16/20 13:15 04/15/20 13:14 01/16/20 14:55 Last 24 Hour Vital Signs Date Time Temp Pulse Resp B/P (MAP) Pulse Ox O2 Delivery O2 Flow Rate FiO2 01/17/20 07:30 104 24 144/56 (85) 95 01/17/20 07:00 106 21 140/66 (90) 97 01/17/20 06:30 104 25 01/17/20 06:00 107 23 135/55 (81) 96 01/17/20 05:00 108 22 140/54 (82) 94 01/17/20 04:00 Mechanical Ventilator 01/17/20 04:00 100 01/17/20 04:00 99.0 108 22 149/54 (85) 95 01/17/20 03:14 106 23 40 01/17/20 03:00 106 25 139/59 (85) 96 01/17/20 02:00 108 21 125/57 (79) 99 01/17/20 01:00 103 21 133/53 (79) 100 01/17/20 00:30 100 20 122/51 (74) 100 01/17/20 00:00 Mechanical Ventilator 01/17/20 00:00 100 22 129/60 (83) 100 01/16/20 23:58 101 23 60 01/16/20 23:30 101 20 128/62 (84) 100 01/16/20 23:00 99 22 124/48 (73) 100 01/16/20 22:30 98 23 124/46 (72) 100 01/16/20 22:00 96 23 119/47 (71) 100 01/16/20 21:00 96 24 119/43 (68) 100 01/16/20 20:00 100 01/16/20 20:00 Mechanical Ventilator 01/16/20 20:00 77 01/16/20 20:00 98.9 94 23 118/41 (66) 100 01/16/20 19:34 95 26 80 01/16/20 19:00 99 24 113/49 (70) 92 01/16/20 18:00 102 29 109/46 (67) 97 01/16/20 18:00 102 25 111/46 (67) 96 01/16/20 17:00 103 28 94/40 (58) 92 01/16/20 17:00 100 01/16/20 16:44 50 01/16/20 16:00 Mechanical Ventilator 01/16/20 16:00 98.1 84 24 104/31 (55) 95 01/16/20 15:28 82 01/16/20 15:00 50 01/16/20 15:00 85 25 116/36 (62) 99 01/16/20 14:50 86 25 50 01/16/20 14:00 86 30 116/36 (62) 96 01/16/20 13:40 60 01/16/20 13:00 83 21 107/38 (61) 96 01/16/20 12:00 Mechanical Ventilator 01/16/20 12:00 87 01/16/20 12:00 15.0 60 01/16/20 12:00 88 27 104/41 (62) 96 01/16/20 12:00 98.6 01/16/20 11:20 94 28 50 01/16/20 11:00 90 23 112/36 (61) 98 01/16/20 10:00 95 28 117/40 (65) 95 01/16/20 09:00 96 26 119/59 (79) 96 01/16/20 08:00 99.1 95 25 128/41 (70) 95 01/16/20 08:00 Mechanical Ventilator 01/16/20 08:00 88 01/16/20 07:14 96 28 50 01/16/20 07:00 96 24 127/47 (73) 95 01/16/20 06:30 94 25 01/16/20 06:00 95 25 128/44 (72) 95 01/16/20 05:00 94 25 107/41 (63) 94 01/16/20 04:00 95 01/16/20 04:00 Mechanical Ventilator 01/16/20 04:00 97.8 94 24 129/47 (74) 95 01/16/20 03:14 90 24 50 01/16/20 03:00 89 22 119/43 (68) 96 01/16/20 02:00 90 23 131/48 (75) 99 01/16/20 01:00 90 23 127/46 (73) 99 01/16/20 00:00 80 01/16/20 00:00 98.0 78 23 112/46 (68) 99 01/16/20 00:00 Mechanical Ventilator 01/15/20 23:01 76 23 50 01/15/20 23:00 78 23 113/41 (65) 99 01/15/20 22:39 15.0 60 01/15/20 22:36 Mechanical Ventilator 15.0 01/15/20 22:20 97.5 83 27 117/44 97 Mechanical Ventilator 15.0 60 01/15/20 22:00 72 23 130/46 (74) 99 01/15/20 21:45 97.5 80 23 139/43 (75) 99 01/15/20 21:44 90 01/15/20 19:08 88 33 60 01/15/20 18:08 101 32 100 01/15/20 17:40 99.1 85 29 114/78 100 Mechanical Ventilator 01/15/20 17:40 81 29 Mechanical Ventilator 01/15/20 17:38 99.1 95 23 136/90 (105) 96 Non-Rebreather 15.0 Intake and Output 01/16/20 01/17/20 19:00 07:00 Intake Total 1845.5 ml 137.5 ml Output Total 2070 ml 50 ml Balance -224.5 ml 87.5 ml IV Total 1345.5 ml 137.5 ml Blood Product 500 ml Output Urine Total 70 ml 50 ml Hemodialysis UF 2000 ml Labs Test 01/15/20 17:48 01/15/20 17:52 01/15/20 20:55 01/15/20 23:05 White Blood Count 23.8 K/UL (4.8-10.8) Red Blood Count 2.69 M/UL (4.20-5.40) Hemoglobin 7.3 G/DL (12.0-16.0) Hematocrit 21.7 % (37.0-47.0) Mean Corpuscular Volume 81 FL (80-99) Mean Corpuscular Hemoglobin 27.3 PG (27.0-31.0) Mean Corpuscular Hemoglobin Concent 33.8 G/DL (32.0-36.0) Red Cell Distribution Width 13.5 % (11.6-14.8) Platelet Count 426 K/UL (150-450) Mean Platelet Volume 4.4 FL (6.5-10.1) Neutrophils (%) (Auto) % (45.0-75.0) Lymphocytes (%) (Auto) % (20.0-45.0) Monocytes (%) (Auto) % (1.0-10.0) Eosinophils (%) (Auto) % (0.0-3.0) Basophils (%) (Auto) % (0.0-2.0) Differential Total Cells Counted 100 Neutrophils % (Manual) 88 % (45-75) Lymphocytes % (Manual) 8 % (20-45) Monocytes % (Manual) 3 % (1-10) Eosinophils % (Manual) 1 % (0-3) Basophils % (Manual) 0 % (0-2) Band Neutrophils 0 % (0-8) Platelet Estimate Increased Platelet Morphology Normal Hypochromasia 2+ Anisocytosis 1+ Microcytosis 1+ Prothrombin Time 16.3 SEC (9.30-11.50) Prothromb Time International Ratio 1.5 (0.9-1.1) Activated Partial Thromboplast Time 38 SEC (23-33) D-Dimer 14.28 mg/L FEU (0.00-0.49) Sodium Level 103 MMOL/L (136-145) 105 MMOL/L (136-145) 105 MMOL/L (136-145) Potassium Level 5.4 MMOL/L (3.5-5.1) 4.9 MMOL/L (3.5-5.1) 5.5 MMOL/L (3.5-5.1) Chloride Level 66 MMOL/L (98-107) 68 MMOL/L (98-107) 68 MMOL/L (98-107) Carbon Dioxide Level 14 MMOL/L (21-32) 14 MMOL/L (21-32) 17 MMOL/L (21-32) Anion Gap 24 mmol/L (5-15) 23 mmol/L (5-15) 21 mmol/L (5-15) Blood Urea Nitrogen 233 mg/dL (7-18) 242 mg/dL (7-18) 232 mg/dL (7-18) Creatinine 6.7 MG/DL (0.55-1.30) 6.7 MG/DL (0.55-1.30) 6.9 MG/DL (0.55-1.30) Estimat Glomerular Filtration Rate 6.6 mL/min (>60) 6.6 mL/min (>60) 6.4 mL/min (>60) Glucose Level 100 MG/DL (74-106) 140 MG/DL (74-106) 99 MG/DL (74-106) Lactic Acid Level 0.70 mmol/L (0.4-2.0) Calcium Level 10.2 MG/DL (8.5-10.1) 9.8 MG/DL (8.5-10.1) 10.0 MG/DL (8.5-10.1) Phosphorus Level 9.1 MG/DL (2.5-4.9) Magnesium Level 4.1 MG/DL (1.8-2.4) Ferritin 1132 NG/ML (8-388) Total Bilirubin 0.5 MG/DL (0.2-1.0) Aspartate Amino Transf (AST/SGOT) 24 U/L (15-37) Alanine Aminotransferase (ALT/SGPT) 10 U/L (12-78) Alkaline Phosphatase 252 U/L (46-116) Lactate Dehydrogenase 140 U/L (81-234) Total Creatine Kinase 87 U/L (26-308) Creatine Kinase MB 5.8 NG/ML (0.0-3.6) Creatine Kinase MB Relative Index 6.6 Troponin I 0.299 ng/mL (0.000-0.056) C-Reactive Protein, Quantitative 21.8 mg/dL (0.00-0.90) Pro-B-Type Natriuretic Peptide > 48865 pg/mL (0-125) Total Protein 7.1 G/DL (6.4-8.2) Albumin 2.4 G/DL (3.4-5.0) Globulin 4.7 g/dL Albumin/Globulin Ratio 0.5 (1.0-2.7) Lipase > 2000 U/L (73-393) Arterial Blood pH 7.252 (7.350-7.450) Arterial Blood Partial Pressure CO2 30.7 mmHg (35.0-45.0) Arterial Blood Partial Pressure O2 119.1 mmHg (75.0-100.0) Arterial Blood HCO3 13.2 mmol/L (22.0-26.0) Arterial Blood Oxygen Saturation 97.8 % (95-100) Arterial Blood Base Excess -12.8 (-2-2) Rojas Test Positive Test 01/16/20 03:00 01/16/20 08:20 01/16/20 09:57 01/16/20 11:30 White Blood Count 15.8 K/UL (4.8-10.8) Red Blood Count 2.12 M/UL (4.20-5.40) Hemoglobin 5.9 G/DL (12.0-16.0) Hematocrit 16.3 % (37.0-47.0) Mean Corpuscular Volume 77 FL (80-99) Mean Corpuscular Hemoglobin 27.8 PG (27.0-31.0) Mean Corpuscular Hemoglobin Concent 36.2 G/DL (32.0-36.0) Red Cell Distribution Width 15.1 % (11.6-14.8) Platelet Count 324 K/UL (150-450) Mean Platelet Volume 4.5 FL (6.5-10.1) Neutrophils (%) (Auto) % (45.0-75.0) Lymphocytes (%) (Auto) % (20.0-45.0) Monocytes (%) (Auto) % (1.0-10.0) Eosinophils (%) (Auto) % (0.0-3.0) Basophils (%) (Auto) % (0.0-2.0) Differential Total Cells Counted 100 Neutrophils % (Manual) 93 % (45-75) Lymphocytes % (Manual) 6 % (20-45) Monocytes % (Manual) 1 % (1-10) Eosinophils % (Manual) 0 % (0-3) Basophils % (Manual) 0 % (0-2) Band Neutrophils 0 % (0-8) Platelet Estimate Adequate Platelet Morphology Normal Hypochromasia 1+ Anisocytosis 1+ Microcytosis 2+ Sodium Level 110 MMOL/L (136-145) 113 MMOL/L (136-145) Potassium Level 5.4 MMOL/L (3.5-5.1) 5.2 MMOL/L (3.5-5.1) Chloride Level 72 MMOL/L (98-107) 77 MMOL/L (98-107) Carbon Dioxide Level 14 MMOL/L (21-32) 13 MMOL/L (21-32) Anion Gap 24 mmol/L (5-15) 24 mmol/L (5-15) Blood Urea Nitrogen 226 mg/dL (7-18) 230 mg/dL (7-18) Creatinine 6.8 MG/DL (0.55-1.30) 7.0 MG/DL (0.55-1.30) Estimat Glomerular Filtration Rate 6.5 mL/min (>60) 6.3 mL/min (>60) Glucose Level 99 MG/DL (74-106) 94 MG/DL (74-106) Calcium Level 9.7 MG/DL (8.5-10.1) 9.7 MG/DL (8.5-10.1) Osmolality 330 mOsm/kg (297-317) Uric Acid 8.9 MG/DL (2.6-7.2) Phosphorus Level 9.2 MG/DL (2.5-4.9) Magnesium Level 3.9 MG/DL (1.8-2.4) Iron Level 51 ug/dL (50-175) Total Iron Binding Capacity 211 ug/dL (250-450) Percent Iron Saturation 24 % (15-50) Unsaturated Iron Binding 160 ug/dL (112-346) Total Bilirubin 0.5 MG/DL (0.2-1.0) Aspartate Amino Transf (AST/SGOT) 20 U/L (15-37) Alanine Aminotransferase (ALT/SGPT) 11 U/L (12-78) Alkaline Phosphatase 203 U/L (46-116) Total Protein 6.7 G/DL (6.4-8.2) Albumin 2.2 G/DL (3.4-5.0) Globulin 4.5 g/dL Albumin/Globulin Ratio 0.5 (1.0-2.7) Triglycerides Level 58 MG/DL (30-150) Cholesterol Level 58 MG/DL (< 200) LDL Cholesterol 39 mg/dL (<100) HDL Cholesterol 11 MG/DL (40-60) Cholesterol/HDL Ratio 5.3 (3.3-4.4) Vitamin B12 Level 1917 PG/ML (193-986) Folate 23.3 NG/ML (8.6-58.9) Thyroid Stimulating Hormone (TSH) 0.640 uiU/mL (0.358-3.740) Arterial Blood pH 7.280 (7.350-7.450) Arterial Blood Partial Pressure CO2 24.3 mmHg (35.0-45.0) Arterial Blood Partial Pressure O2 80.1 mmHg (75.0-100.0) Arterial Blood HCO3 11.2 mmol/L (22.0-26.0) Arterial Blood Oxygen Saturation 94.4 % (95-100) Arterial Blood Base Excess -14.3 (-2-2) Rojas Test Positive Urine Osmolality 304 mOsm/kg (429-449) Urine Random Sodium 152 mmol/L (20-110) Test 01/16/20 14:40 01/17/20 04:10 Arterial Blood pH 7.237 (7.350-7.450) Arterial Blood Partial Pressure CO2 28.4 mmHg (35.0-45.0) Arterial Blood Partial Pressure O2 168.6 mmHg (75.0-100.0) Arterial Blood HCO3 11.8 mmol/L (22.0-26.0) Arterial Blood Oxygen Saturation 99.2 % (95-100) Arterial Blood Base Excess -14.3 (-2-2) Rojas Test Positive White Blood Count 25.9 K/UL (4.8-10.8) Red Blood Count 2.60 M/UL (4.20-5.40) Hemoglobin 7.3 G/DL (12.0-16.0) Hematocrit 20.0 % (37.0-47.0) Mean Corpuscular Volume 77 FL (80-99) Mean Corpuscular Hemoglobin 28.0 PG (27.0-31.0) Mean Corpuscular Hemoglobin Concent 36.4 G/DL (32.0-36.0) Red Cell Distribution Width 14.7 % (11.6-14.8) Platelet Count 294 K/UL (150-450) Mean Platelet Volume 4.6 FL (6.5-10.1) Neutrophils (%) (Auto) % (45.0-75.0) Lymphocytes (%) (Auto) % (20.0-45.0) Monocytes (%) (Auto) % (1.0-10.0) Eosinophils (%) (Auto) % (0.0-3.0) Basophils (%) (Auto) % (0.0-2.0) Differential Total Cells Counted 100 Neutrophils % (Manual) 90 % (45-75) Lymphocytes % (Manual) 6 % (20-45) Monocytes % (Manual) 3 % (1-10) Eosinophils % (Manual) 1 % (0-3) Basophils % (Manual) 0 % (0-2) Band Neutrophils 0 % (0-8) Platelet Estimate Adequate Platelet Morphology Normal Hypochromasia 2+ Anisocytosis 2+ Microcytosis 2+ Prothrombin Time 14.3 SEC (9.30-11.50) Prothromb Time International Ratio 1.3 (0.9-1.1) Sodium Level 130 MMOL/L (136-145) Potassium Level 3.7 MMOL/L (3.5-5.1) Chloride Level 89 MMOL/L (98-107) Carbon Dioxide Level 20 MMOL/L (21-32) Anion Gap 21 mmol/L (5-15) Blood Urea Nitrogen 133 mg/dL (7-18) Creatinine 4.5 MG/DL (0.55-1.30) Estimat Glomerular Filtration Rate 10.5 mL/min (>60) Glucose Level 67 MG/DL (74-106) Uric Acid 6.5 MG/DL (2.6-7.2) Calcium Level 9.5 MG/DL (8.5-10.1) Phosphorus Level 5.8 MG/DL (2.5-4.9) Magnesium Level 3.4 MG/DL (1.8-2.4) Total Bilirubin 0.5 MG/DL (0.2-1.0) Aspartate Amino Transf (AST/SGOT) 23 U/L (15-37) Alanine Aminotransferase (ALT/SGPT) 10 U/L (12-78) Alkaline Phosphatase 203 U/L (46-116) C-Reactive Protein, Quantitative 24.0 mg/dL (0.00-0.90) Pro-B-Type Natriuretic Peptide > 72177 pg/mL (0-125) Total Protein 7.1 G/DL (6.4-8.2) Albumin 2.6 G/DL (3.4-5.0) Globulin 4.5 g/dL Albumin/Globulin Ratio 0.6 (1.0-2.7) Lipase 1171 U/L (73-393) Random Vancomycin Level 10.1 ug/mL Height (Feet): 5 Height (Inches): 6.00 Weight (Pounds): 150 Objective Physical Exam: Vitals: reviewed General: NAD HEENT: nc, at Neck: supple ++trach/vent Chest: clear breath sounds bilaterally Cardiovascular: RRR, no s3, s4 Abdomen: soft, nontender, nd +gtube Extremities: no cce, normal range of motion Neuro: alert Evan Muhammad MD Jan 17, 2020 09:43
[2020-01-17] MEDS ORDERED: NaCl 3% 500ml 250 ML IV ONE (10:00)
[2020-01-17] MEDS ORDERED: Vancomycin 1gm/D5W 275ml IVPB ONE ×2 (10:00)
--- NOTE | 2020-01-17 10:42 | NUR ---
NURSE NOTES: pt began desaturating to 88% and HR increased in the 140s. Pt suctioned and put on 100% fio2. Pt now saturating 100%. Pt titrated down on oxygen back to 40%, still with O2 sat of 98%. HR still elevated in 150s. EKG shows Aflutter with variable AV block. Message left with Dr. Dong; awaiting response. BP stable.
--- NOTE | 2020-01-17 10:53 | Nephrology Progress Note ---
Assessment/Plan Problem List: (1) ARF (acute renal failure) (2) Pacemaker (3) Sepsis (4) Hyponatremia Assessment (1) JAVIER (acute kidney injury) (2) Renal failure (ARF), acute on chronic (3) Feeding by G-tube (4) Tracheostomy in place (5) Electrolyte imbalance, hyponatremia (6) Anemia, severe (7) Respiratory failure, acute and chronic (8) Elevated lipase, pancreatitis (9) Elevated troponin I (10) Sepsis Plan January 16: Dialyzed yesterday. Labs improved. Next dialysis tomorrow. Continue per consultants. January 15: Patient to have dialysis catheter. Emergency dialysis for correction of uremia and electrolyte imbalances Antibiotics Transfusion Continue to monitor renal parameters Per orders Discussed with RN Subjective ROS Limited/Unobtainable: Yes Objective Objective Last 24 Hour Vital Signs Date Time Temp Pulse Resp B/P (MAP) Pulse Ox O2 Delivery O2 Flow Rate FiO2 01/17/20 07:30 104 24 144/56 (85) 95 01/17/20 07:00 106 21 140/66 (90) 97 01/17/20 06:30 104 25 01/17/20 06:00 107 23 135/55 (81) 96 01/17/20 05:00 108 22 140/54 (82) 94 01/17/20 04:00 Mechanical Ventilator 01/17/20 04:00 100 01/17/20 04:00 99.0 108 22 149/54 (85) 95 01/17/20 03:14 106 23 40 01/17/20 03:00 106 25 139/59 (85) 96 01/17/20 02:00 108 21 125/57 (79) 99 01/17/20 01:00 103 21 133/53 (79) 100 01/17/20 00:30 100 20 122/51 (74) 100 01/17/20 00:00 Mechanical Ventilator 01/17/20 00:00 100 22 129/60 (83) 100 01/16/20 23:58 101 23 60 01/16/20 23:30 101 20 128/62 (84) 100 01/16/20 23:00 99 22 124/48 (73) 100 01/16/20 22:30 98 23 124/46 (72) 100 01/16/20 22:00 96 23 119/47 (71) 100 01/16/20 21:00 96 24 119/43 (68) 100 01/16/20 20:00 100 01/16/20 20:00 Mechanical Ventilator 01/16/20 20:00 77 01/16/20 20:00 98.9 94 23 118/41 (66) 100 01/16/20 19:34 95 26 80 01/16/20 19:00 99 24 113/49 (70) 92 01/16/20 18:00 102 29 109/46 (67) 97 01/16/20 18:00 102 25 111/46 (67) 96 01/16/20 17:00 103 28 94/40 (58) 92 01/16/20 17:00 100 01/16/20 16:44 50 01/16/20 16:00 Mechanical Ventilator 01/16/20 16:00 98.1 84 24 104/31 (55) 95 01/16/20 15:28 82 01/16/20 15:00 50 01/16/20 15:00 85 25 116/36 (62) 99 01/16/20 14:50 86 25 50 01/16/20 14:00 86 30 116/36 (62) 96 01/16/20 13:40 60 01/16/20 13:00 83 21 107/38 (61) 96 01/16/20 12:00 Mechanical Ventilator 01/16/20 12:00 87 01/16/20 12:00 15.0 60 01/16/20 12:00 88 27 104/41 (62) 96 01/16/20 12:00 98.6 01/16/20 11:20 94 28 50 01/16/20 11:00 90 23 112/36 (61) 98 Intake and Output 01/16/20 01/17/20 19:00 07:00 Intake Total 1845.5 ml 137.5 ml Output Total 2070 ml 50 ml Balance -224.5 ml 87.5 ml IV Total 1345.5 ml 137.5 ml Blood Product 500 ml Output Urine Total 70 ml 50 ml Hemodialysis UF 2000 ml Current Medications Medications (Trade) Dose Ordered Sig/Penny Route PRN Reason Start Time Stop Time Status Last Admin Dose Admin Chlorhexidine Gluconate (Ling-Hex 2%) 1 applic DAILY@2000 TOPIC 01/17/20 20:00 04/16/20 19:59 Dextrose (Dextrose 50%) 25 ml Q30M PRN IV Hypoglycemia 01/15/20 22:15 04/14/20 22:14 Dextrose (Dextrose 50%) 50 ml Q30M PRN IV Hypoglycemia 01/15/20 22:15 04/14/20 22:14 Meropenem 500 mg/ Sodium Chloride 55 ml @ 110 mls/hr Q24H IVPB 01/17/20 10:30 01/22/20 10:29 Metoclopramide HCl (Reglan) 5 mg Q6H PRN IVP Nausea & Vomiting 01/15/20 22:15 02/14/20 22:14 Pantoprazole (Protonix) 40 mg EVERY 12 HOURS IV 01/16/20 09:00 02/15/20 08:59 01/17/20 08:11 Sodium Chloride 250 ml @ 30 mls/hr ONCE ONCE IV 01/17/20 10:00 01/17/20 18:19 01/17/20 09:32 [facility] 1 ea DAILY PRN MISC Per rx protocol 01/15/20 22:15 02/14/20 22:14 Vancomycin HCl 1 gm/Dextrose 275 ml @ 183.708 mls/hr NOW ONCE IVPB 01/17/20 10:00 01/17/20 11:29 01/17/20 09:33 Zinc Oxide (Zinc Oxide) 1 applic TIDPRN PRN TOPIC diogenes GT 01/16/20 13:15 04/15/20 13:14 01/16/20 14:55 Laboratory Tests 01/16/20 11:30: Urine Osmolality 304L, Urine Random Sodium 152H 01/16/20 14:40: Arterial Blood pH 7.237*L, Arterial Blood Partial Pressure CO2 28.4L, Arterial Blood Partial Pressure O2 168.6H, Arterial Blood HCO3 11.8*L, Arterial Blood Oxygen Saturation 99.2, Arterial Blood Base Excess -14.3*L, Rojas Test Positive 01/17/20 04:10: White Blood Count 25.9#*H, Red Blood Count 2.60L, Hemoglobin 7.3L, Hematocrit 20.0L, Mean Corpuscular Volume 77L, Mean Corpuscular Hemoglobin 28.0, Mean Corpuscular Hemoglobin Concent 36.4H, Red Cell Distribution Width 14.7, Platelet Count 294, Mean Platelet Volume 4.6L, Neutrophils (%) (Auto) , Lymphocytes (%) (Auto) , Monocytes (%) (Auto) , Eosinophils (%) (Auto) , Basophils (%) (Auto) , Differential Total Cells Counted 100, Neutrophils % (Manual) 90H, Lymphocytes % (Manual) 6L, Monocytes % (Manual) 3, Eosinophils % (Manual) 1, Basophils % (M anual) 0, Band Neutrophils 0, Platelet Estimate Adequate, Platelet Morphology Normal, Hypochromasia 2+, Anisocytosis 2+, Microcytosis 2+, Prothrombin Time 14.3H, Prothromb Time International Ratio 1.3H, Sodium Level 130#L, Potassium Level 3.7, Chloride Level 89L, Carbon Dioxide Level 20L, Anion Gap 21H, Blood Urea Nitrogen 133#H, Creatinine 4.5H, Estimat Glomerular Filtration Rate 10.5, Glucose Level 67L, Uric Acid 6.5, Calcium Level 9.5, Phosphorus Level 5.8H, Magnesium Level 3.4H, Total Bilirubin 0.5, Aspartate Amino Transf (AST/SGOT) 23, Alanine Aminotransferase (ALT/SGPT) 10L, Alkaline Phosphatase 203H, C-Reactive Protein, Quantitative 24.0H, Pro-B-Type Natriuretic Peptide > 29657Z, Total Protein 7.1, Albumin 2.6L, Globulin 4.5, Albumin/Globulin Ratio 0.6L, Lipase 1171H, Random Vancomycin Level 10.1 Height (Feet): 5 Height (Inches): 6.00 Weight (Pounds): 150 General Appearance: mild distress EENT: other - Trach to vent Cardiovascular: tachycardia Respiratory/Chest: decreased breath sounds Abdomen: distended Johnny Houston MD Jan 17, 2020 10:53
--- NOTE | 2020-01-17 11:05 | NUR ---
NURSE NOTES: Per Dr. Dong, order digoxin 0.125 mg IVP and consult Dr. Willams for any more orders.
--- NOTE | 2020-01-17 11:09 | NUR ---
NURSE NOTES: spoke with Dr. Willams regarding patient's tachycardia. Per Dr. Willams, hold digoxin. He said order stat ABG, and let him know the results before giving. Order noted and carried out. RT Shari made aware.
[2020-01-17] MEDS ORDERED: Digoxin 0.5mg/2ml Inj IVP ONE (11:15)
[2020-01-17] MEDS: Meropenem 500 MG in NS 55 ML IVPB SCH (11:15)
--- NOTE | 2020-01-17 12:10 | NUR ---
NURSE NOTES: Spoke with Dr. Willams on the phone regarding results of ABG. Per Dr. Willams do not administer digoxin and instead administer CARDIZEM 20 MG IVP once. Order noted and carried out.
--- NOTE | 2020-01-17 12:12 | General Progress Note ---
Subjective ROS Limited/Unobtainable: No Allergies: Coded Allergies: No Known Allergies (Unverified , 10/10/17) Objective Last 24 Hour Vital Signs Date Time Temp Pulse Resp B/P (MAP) Pulse Ox O2 Delivery O2 Flow Rate FiO2 01/17/20 11:15 148 01/17/20 11:00 147 23 120/58 (78) 98 01/17/20 10:15 148 25 128/56 (80) 95 01/17/20 10:00 100 21 144/52 (82) 98 01/17/20 09:00 102 22 141/58 (85) 96 01/17/20 08:00 99.1 105 21 146/59 (88) 96 01/17/20 07:30 104 24 144/56 (85) 95 01/17/20 07:00 106 21 140/66 (90) 97 01/17/20 06:30 104 25 01/17/20 06:00 107 23 135/55 (81) 96 01/17/20 05:00 108 22 140/54 (82) 94 01/17/20 04:00 Mechanical Ventilator 01/17/20 04:00 100 01/17/20 04:00 99.0 108 22 149/54 (85) 95 01/17/20 03:14 106 23 40 01/17/20 03:00 106 25 139/59 (85) 96 01/17/20 02:00 108 21 125/57 (79) 99 01/17/20 01:00 103 21 133/53 (79) 100 01/17/20 00:30 100 20 122/51 (74) 100 01/17/20 00:00 Mechanical Ventilator 01/17/20 00:00 100 22 129/60 (83) 100 01/16/20 23:58 101 23 60 01/16/20 23:30 101 20 128/62 (84) 100 01/16/20 23:00 99 22 124/48 (73) 100 01/16/20 22:30 98 23 124/46 (72) 100 01/16/20 22:00 96 23 119/47 (71) 100 01/16/20 21:00 96 24 119/43 (68) 100 01/16/20 20:00 100 01/16/20 20:00 Mechanical Ventilator 01/16/20 20:00 77 01/16/20 20:00 98.9 94 23 118/41 (66) 100 01/16/20 19:34 95 26 80 01/16/20 19:00 99 24 113/49 (70) 92 01/16/20 18:00 102 29 109/46 (67) 97 01/16/20 18:00 102 25 111/46 (67) 96 01/16/20 17:00 103 28 94/40 (58) 92 01/16/20 17:00 100 01/16/20 16:44 50 01/16/20 16:00 Mechanical Ventilator 01/16/20 16:00 98.1 84 24 104/31 (55) 95 01/16/20 15:28 82 01/16/20 15:00 50 01/16/20 15:00 85 25 116/36 (62) 99 01/16/20 14:50 86 25 50 01/16/20 14:00 86 30 116/36 (62) 96 01/16/20 13:40 60 01/16/20 13:00 83 21 107/38 (61) 96 Intake and Output 01/16/20 01/17/20 18:59 06:59 Intake Total 1845.5 ml 200.0 ml Output Total 2070 ml 50 ml Balance -224.5 ml 150.0 ml IV Total 1345.5 ml 200.0 ml Blood Product 500 ml Output Urine Total 70 ml 50 ml Hemodialysis UF 2000 ml Laboratory Tests 01/16/20 14:40: Arterial Blood pH 7.237*L, Arterial Blood Partial Pressure CO2 28.4L, Arterial Blood Partial Pressure O2 168.6H, Arterial Blood HCO3 11.8*L, Arterial Blood Oxygen Saturation 99.2, Arterial Blood Base Excess -14.3*L, Rojas Test Positive 01/17/20 04:10: White Blood Count 25.9#*H, Red Blood Count 2.60L, Hemoglobin 7.3L, Hematocrit 20.0L, Mean Corpuscular Volume 77L, Mean Corpuscular Hemoglobin 28.0, Mean Corpuscular Hemoglobin Concent 36.4H, Red Cell Distribution Width 14.7, Platelet Count 294, Mean Platelet Volume 4.6L, Neutrophils (%) (Auto) , Lymphocytes (%) (Auto) , Monocytes (%) (Auto) , Eosinophils (%) (Auto) , Basophils (%) (Auto) , Differential Total Cells Counted 100, Neutrophils % (Manual) 90H, Lymphocytes % (Manual) 6L, Monocytes % (Manual) 3, Eosinophils % (Manual) 1, Basophils % (Manual) 0, Band Neutrophils 0, Platelet Estimate Adequate, Platelet Morphology Normal, Hypochromasia 2+, Anisocytosis 2+, Microcytosis 2+, Prothrombin Time 14.3H, Prothromb Time International Ratio 1.3H, Sodium Level 130#L, Potassium Level 3.7, Chloride Level 89L, Carbon Dioxide Level 20L, Anion Gap 21H, Blood Urea Nitrogen 133#H, Creatinine 4.5H, Estimat Glomerular Filtration Rate 10.5, Glucose Level 67L, Uric Acid 6.5, Calcium Level 9.5, Phosphorus Level 5.8H, Magnesium Level 3.4H, Total Bilirubin 0.5, Aspartate Amino Transf (AST/SGOT) 23, Alanine Aminotransferase (ALT/SGPT) 10L, Alkaline Phosphatase 203H, C-Reactive Protein, Quantitative 24.0H, Pro-B-Type Natriuretic Peptide > 29516K, Total Protein 7.1, Albumin 2.6L, Globulin 4.5, Albumin/Globulin Ratio 0.6L, Lipase 1171H, Random Vancomycin Level 10.1 01/17/20 11:48: Arterial Blood pH 7.442, Arterial Blood Partial Pressure CO2 26.5L, Arterial Blood Partial Pressure O2 80.1, Arterial Blood HCO3 17.7*L, Arterial Blood Oxygen Saturation 95.0, Arterial Blood Base Excess -5.8L, Rojas Test Positive Height (Feet): 5 Height (Inches): 6.00 Weight (Pounds): 150 General Appearance: lethargic EENT: normal ENT inspection Neck: supple Cardiovascular: normal rate Respiratory/Chest: decreased breath sounds Abdomen: normal bowel sounds, non tender, soft Extremities: non-tender Assessment/Plan Problem List: (1) Hx of CABG ICD Codes: Z95.1 - Presence of aortocoronary bypass graft SNOMED: 872861557, 123439037 (2) History of tracheostomy ICD Codes: Z98.890 - Other specified postprocedural states SNOMED: 912330508, 488605805 (3) PEG (percutaneous endoscopic gastrostomy) status ICD Codes: Z93.1 - Gastrostomy status SNOMED: 337414766, 943569549 (4) S/P aortic dissection repair ICD Codes: Z98.890 - Other specified postprocedural states SNOMED: 907466007, 246713332 (5) Renal failure ICD Codes: N19 - Unspecified kidney failure SNOMED: 74526299, 101720717 (6) Anemia ICD Codes: D64.9 - Anemia, unspecified SNOMED: 637575837 Assessment/Plan: not stable for GI procedures vit K given ppi blood transfusion fu labs EGD when more stable GT topical care start low dose GTF fu nephrology HD per nephrology Inder Mccauley MD Jan 17, 2020 12:12
[2020-01-17] MEDS ORDERED: dilTIAZem HCl 25mg/5ml Inj IVP ONE ×2 (12:15→14:15)
--- NOTE | 2020-01-17 12:56 | NUR ---
NURSE NOTES: After administering cardizem IVP, no change to patient's heart rate and rhythm. Message left with Dr. Willams, awaiting response.
--- NOTE | 2020-01-17 13:13 | NUR ---
NURSE NOTES: spoke with Vijay Johnson [facility] and scheduled dialysis for tomorrow per MD order
--- NOTE | 2020-01-17 13:15 | Consultation ---
DATE OF CONSULTATION: 01/17/2020 CARDIOLOGY CONSULTATION CONSULTING PHYSICIAN: Deni Willams MD. REQUESTING PHYSICIAN: Lucas Dong MD. REASON FOR CONSULTATION: Rapid atrial flutter. HISTORY OF PRESENT ILLNESS: This 49-year-old female was admitted to the hospital yesterday with renal failure and sepsis. Her condition remained critical as she has developed rapid atrial flutter prompting this consultation. PAST MEDICAL HISTORY: 1. Respiratory failure. 2. Hx permanent pacemaker - with subsequent explant. 3. Coronary artery disease, status post CABG. 4. COPD. 5. Thoracic aneurysm. 6. Tracheostomy and ventilator dependent. 7. Dysphagia with G-tube. ALLERGIES: None. MEDICATIONS: Reviewed. FAMILY HISTORY: Not obtainable. SOCIAL HISTORY: Not obtainable. PHYSICAL EXAMINATION: VITAL SIGNS: On exam, blood pressure 120/58, pulse 147, respirations 23, temperature 99.1. HEENT: Thin trach secretions. LUNGS: Bilateral rhonchi. Rapid rate. CARDIAC: Regular rhythm. No appreciable murmur. ABDOMEN: Soft. EXTREMITIES: Trace edema. LABORATORY DATA: White count 26, hemoglobin 7.3. Sodium 130, potassium 3.7, bicarb 20, BUN 133, creatinine 4.5. Pro-natriuretic peptide over 35,000. ABG 7.44, 26, 80. IMPRESSION: 1. Severe sepsis. 2. Renal failure. 3. Paroxysmal atrial flutter with rapid ventricular rate. 4. Ischemic cardiomyopathy. 5. Ventilator-dependent respiratory failure. 6. Severe anemia. 7. Metabolic acidosis. 8. 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 PLAN: 1. IV Cardizem. 2. Dialysis with ultrafiltration. 3. Maintenance beta blockade. 4. Ventilator support. 5. Consider packed red blood cell transfusion. 6. Respiratory hygiene. 7. Continuous cardiac monitoring Deni Willams M.D. DR: TOO JOB#: [id number] CC: JAIR
[2020-01-17] MEDS ORDERED: dilTIAZem HCl 60mg tab GT SCH (14:00)
--- NOTE | 2020-01-17 14:50 | NUR ---
NURSE NOTES: Bed bath given. Pt suctioned. Cooling measures placed. Linen changed. Optifoam clean dry and intact.
[2020-01-17] MEDS ORDERED: dilTIAZem Premix 125mg/125ml 125 ML IVPB SCH (15:00)
--- NOTE | 2020-01-17 15:20 | NUR ---
NURSE NOTES: Dr. Dong @ bedside
--- NOTE | 2020-01-17 16:01 | General Progress Note ---
Subjective Constitutional: Reports: malaise Cardiovascular: Reports: other - Develop atrial flutter at a rate of 1 40-1 50 Respiratory: Reports: shortness of breath Gastrointestinal/Abdominal: Reports: no symptoms Genitourinary: Reports: no symptoms Neurologic/Psychiatric: Reports: anxiety, depressed Endocrine: Reports: no symptoms Hematologic/Lymphatic: Reports: no symptoms Allergies: Coded Allergies: No Known Allergies (Unverified , 10/10/17) Objective Last 24 Hour Vital Signs Date Time Temp Pulse Resp B/P (MAP) Pulse Ox O2 Delivery O2 Flow Rate FiO2 01/17/20 14:16 149 135/60 01/17/20 14:00 147 22 121/57 (78) 93 01/17/20 13:00 148 23 109/57 (74) 98 01/17/20 12:17 147 124/62 01/17/20 12:00 Mechanical Ventilator 01/17/20 12:00 146 01/17/20 12:00 144 21 121/59 (79) 98 01/17/20 12:00 99.0 01/17/20 11:15 148 01/17/20 11:00 147 23 120/58 (78) 98 01/17/20 10:15 148 25 128/56 (80) 95 01/17/20 10:00 100 21 144/52 (82) 98 01/17/20 09:00 102 22 141/58 (85) 96 01/17/20 08:00 103 01/17/20 08:00 99.1 105 21 146/59 (88) 96 01/17/20 08:00 Mechanical Ventilator 01/17/20 07:30 104 24 144/56 (85) 95 01/17/20 07:00 106 21 140/66 (90) 97 01/17/20 06:30 104 25 01/17/20 06:00 107 23 135/55 (81) 96 01/17/20 05:00 108 22 140/54 (82) 94 01/17/20 04:00 Mechanical Ventilator 01/17/20 04:00 100 01/17/20 04:00 99.0 108 22 149/54 (85) 95 01/17/20 03:14 106 23 40 01/17/20 03:00 106 25 139/59 (85) 96 01/17/20 02:00 108 21 125/57 (79) 99 01/17/20 01:00 103 21 133/53 (79) 100 01/17/20 00:30 100 20 122/51 (74) 100 01/17/20 00:00 Mechanical Ventilator 01/17/20 00:00 100 22 129/60 (83) 100 01/16/20 23:58 101 23 60 01/16/20 23:30 101 20 128/62 (84) 100 01/16/20 23:00 99 22 124/48 (73) 100 01/16/20 22:30 98 23 124/46 (72) 100 01/16/20 22:00 96 23 119/47 (71) 100 01/16/20 21:00 96 24 119/43 (68) 100 01/16/20 20:00 100 01/16/20 20:00 Mechanical Ventilator 01/16/20 20:00 77 01/16/20 20:00 98.9 94 23 118/41 (66) 100 01/16/20 19:34 95 26 80 01/16/20 19:00 99 24 113/49 (70) 92 01/16/20 18:00 102 29 109/46 (67) 97 01/16/20 18:00 102 25 111/46 (67) 96 01/16/20 17:00 103 28 94/40 (58) 92 01/16/20 17:00 100 01/16/20 16:44 50 01/16/20 16:00 Mechanical Ventilator 01/16/20 16:00 98.1 84 24 104/31 (55) 95 Intake and Output 01/16/20 01/17/20 19:00 07:00 Intake Total 1845.5 ml 137.5 ml Output Total 2070 ml 50 ml Balance -224.5 ml 87.5 ml IV Total 1345.5 ml 137.5 ml Blood Product 500 ml Output Urine Total 70 ml 50 ml Hemodialysis UF 2000 ml Laboratory Tests 01/17/20 04:10: White Blood Count 25.9#*H, Red Blood Count 2.60L, Hemoglobin 7.3L, Hematocrit 20.0L, Mean Corpuscular Volume 77L, Mean Corpuscular Hemoglobin 28.0, Mean Corpuscular Hemoglobin Concent 36.4H, Red Cell Distribution Width 14.7, Platelet Count 294, Mean Platelet Volume 4.6L, Neutrophils (%) (Auto) , Lymphocytes (%) (Auto) , Monocytes (%) (Auto) , Eosinophils (%) (Auto) , Basophils (%) (Auto) , Differential Total Cells Counted 100, Neutrophils % (Manual) 90H, Lymphocytes % (Manual) 6L, Monocytes % (Manual) 3, Eosinophils % (Manual) 1, Basophils % (Manual) 0, Band Neutrophils 0, Platelet Estimate Adequate, Platelet Morphology Normal, Hypochromasia 2+, Anisocytosis 2+, Microcytosis 2+, Prothrombin Time 14.3H, Prothromb Time International Ratio 1.3H, Sodium Level 130#L, Potassium Level 3.7, Chloride Level 89L, Carbon Dioxide Level 20L, Anion Gap 21H, Blood Urea Nitrogen 133#H, Creatinine 4.5H, Estimat Glomerular Filtration Rate 10.5, Glucose Level 67L, Uric Acid 6.5, Calcium Level 9.5, Phosphorus Level 5.8H, Magnesium Level 3.4H, Total Bilirubin 0.5, Aspartate Amino Transf (AST/SGOT) 23, Alanine Aminotransferase (ALT/SGPT) 10L, Alkaline Phosphatase 203H, C-Reactive Protein, Quantitative 24.0H, Pro-B-Type Natriuretic Peptide > 46031P, Total Protein 7.1, Albumin 2.6L, Globulin 4.5, Albumin/Globulin Ratio 0.6L, Lipase 1171H, Random Vancomycin Level 10.1 01/17/20 11:48: Arterial Blood pH 7.442, Arterial Blood Partial Pressure CO2 26.5L, Arterial Blood Partial Pressure O2 80.1, Arterial Blood HCO3 17.7*L, Arterial Blood Oxygen Saturation 95.0, Arterial Blood Base Excess -5.8L, Rojas Test Positive Height (Feet): 5 Height (Inches): 6.00 Weight (Pounds): 150 General Appearance: WD/WN, alert, lethargic EENT: normal ENT inspection Neck: supple Cardiovascular: tachycardia, arrhythmia Respiratory/Chest: rhonchi - bilaterally, other - Some respiratory distress Abdomen: normal bowel sounds, non tender, soft, no organomegaly, no mass Extremities: non-tender Neurologic: alert, responsive Assessment/Plan Status Narrative Patient condition and biological status continue to improve awake alert with eye contact and facial expression no verbal response she is hemodynamically stable function electrolytes is markedly improved being dialyzed daily and tolerated the procedure without difficulties we will continue with the same management repeat laboratory tests and chest x-ray as well as ABG will be done in a.m. Lucas Canales MD, MD Jan 17, 2020 16:01
--- NOTE | 2020-01-17 16:25 | Consultation ---
History of Present Illness General Reason for Hospitalization: Dyspnea/Respdistress Present Illness Allergies: Coded Allergies: No Known Allergies (Unverified , 10/10/17) COVID-19 Screening Contact w/high risk pt: Yes Experienced COVID-19 symptoms?: No Medication History Scheduled Albuterol Sulfate (Proventil Hfa), 2 PUFF IH Q6HR, (Reported) Amino Acids/Protein Hydrolys (Pro-Stat Liquid), 30 ML GT DAILY, (Reported) Ascorbic Acid* (Vitamin C*), 500 MG GT DAILY, (Reported) Atorvastatin Calcium* (Lipitor*), 10 MG GT DAILY, (Reported) Chlorhexidine Gluconate (Chlorhexidine Gluconate), 15 ML MM BID, (Reported) Cholecalciferol (Vitamin D3) (Vitamin D3), 125 MCG GT DAILY, (Reported) Clonazepam* (Klonopin*), 1 MG GT Q8HR, (Reported) Cran/Vitc/Mannose/Inulin/Brom (Uti-Stat Liquid), 30 ML GT DAILY, (Reported) Diltiazem Hcl* (Cardizem*), 30 MG GT EVERY 8 HOURS, (Reported) Docusate Sodium* (Docusate Sodium*), 100 MG GT DAILY, (Reported) Epoetin Gelacio-Epbx (Retacrit), 10,000 UNIT SQ 3XW, (Reported) Gemfibrozil* (Lopid*), 600 MG GT TWICE A DAY, (Reported) Insulin Aspart (Novolog Flexpen), 0 SUBQ Q6HR, (Reported) Ipratropium [place] (Atrovent Hfa), 2 PUFFS IH Q6HR, (Reported) Lisinopril (Lisinopril*), 20 MG GT DAILY, (Reported) Metoclopramide Hcl* (Metoclopramide Hcl*), 5 ML GT EVERY 6 HOURS, (Reported) Metolazone (Metolazone), 2.5 MG GT BID, (Reported) Minoxidil* (Loniten*), 2.5 MG GT EVERY 8 HOURS, (Reported) Polyethylene Glycol 3350* (Miralax*), 17 GM GT QHS, (Reported) Silver Sulfadiazine (Silvadene), 20 GM TP DAILY, (Reported) Vitamin B Cmplx/Vit C/Folic AC (Nephro-Cyril Tablet), 1 TAB GT DAILY, (Reported) Scheduled PRN Acetaminophen (Tylenol), 2 TAB GT Q4HR PRN for Prn Pain/Headache/Temp > 101, (Reported) Magnesium Hydroxide* (Milk Of Magnesia*), 30 ML GT QHS PRN for Constipation, (Reported) Tramadol HCl (Tramadol HCl), 100 MG GT Q8HR PRN for Moderate Pain (Pain Scale 4- 6), (Reported) Discontinued Medications Amlodipine Besylate (Norvasc), 10 MG GT DAILY, (Reported) Discontinued Reason: Therapy completed Gel Base No.41 (Hydrogel), Unknown Dose TOPIC DAILY, (Reported) Discontinued Reason: Therapy completed Heparin Sod (Porcine) (Heparin Sodium*), 5,000 UNITS SUBQ EVERY 12 HOURS, (Reported) Discontinued Reason: Therapy completed Hydrocodone Bit/Acetaminophen 10-325* ([place] 10-325*), 1 TAB GT Q6H PRN for For Pain, (Reported) Discontinued Reason: Therapy completed Hydromorphone Hcl (Hydromorphone Hcl), 2 MG GT Q6H PRN for For Pain, (Reported) Discontinued Reason: Therapy completed Multivitamin With Minerals (Multivitamins With Minerals*), 1 TAB GT DAILY, (Reported) Discontinued Reason: Therapy completed Risperidone* (Risperdal*), 2 MG GT DAILY, (Reported) Discontinued Reason: Therapy completed Tramadol Hcl* (Ultram*), 100 MG GT EVERY 8 HOURS PRN for For Pain, (Reported) Discontinued Reason: Prescription changed Zinc Sulfate (Zinc Sulfate), 220 MG GT DAILY, (Reported) Discontinued Reason: Therapy completed Patient History Limited by: medical condition History Provided By: Medical Record, PMD Healthcare decision maker Resuscitation status Advanced Directive on File Past Medical/Surgical History Past Medical/Surgical History: (1) Pancreatitis (2) Elevated troponin (3) Anemia (4) Renal failure (5) ARF (acute renal failure) (6) Pacemaker (7) Sepsis (8) Hyponatremia (9) Chronic respiratory failure (10) Dehydration (11) Hypokalemia (12) Acidosis (13) Ascites (14) Bacteremia (15) Depression (16) Hypernatremia (17) Hyponatremia (18) Pleural effusion (19) Proteinuria (20) Respiratory failure (21) Schizophrenia (22) Electrolyte imbalance (23) Hypoxia (24) UTI (urinary tract infection) (25) Pneumonia (26) ACS (acute coronary syndrome) (27) NSTEMI (non-ST elevated myocardial infarction) (28) Aortic dissection, thoracic (29) Tracheostomy in place (30) Respiratory failure, acute and chronic (31) Feeding by G-tube (32) JAVIER (acute kidney injury) (33) JAVIER (acute kidney injury) (34) Abrasion of lip, initial encounter (35) COPD with exacerbation (36) Elevated alkaline phosphatase level (37) Renal failure (ARF), acute on chronic (38) Acute encephalopathy (39) HCAP (healthcare-associated pneumonia) (40) Elevated lipase (41) Sacral decubitus ulcer, stage IV (42) GT CLOGGED Review of Systems Review of Symptoms General ROS: no weight loss or fever Psychological ROS: no depression or mood changes, no memory loss Ophthalmic ROS: no visual changes or eye irritation ENT ROS: no nasal congestion, hearing loss, dizziness Allergy and Immunology ROS: no allergic symptoms or urticaria Hematological and Lymphatic ROS: no swollen glands, unusual bleeding or bruising Endocrine ROS: no polyuria, polydipsia, weight changes, temperature intolerance Respiratory ROS: no cough, shortness of breath, or wheezing Cardiovascular ROS: no chest pain or dyspnea on exertion Gastrointestinal ROS: denies abdominal pain, bright red blood in stool. Musculoskeletal ROS: no myalgias or arthralgias Neurological ROS: no TIA or stroke symptoms Dermatological ROS: no new or changing skin lesions, rashes or pruritis Physical Exam Physical Exam General appearance: mild distress, appears stated age Head: Normocephalic, without obvious abnormality, atraumatic Eyes: conjunctivae/corneas clear. PERRL, EOM's intact. Fundi benign Throat: Lips, mucosa, and tongue normal. Teeth and gums normaltrach Neck: supple, symmetrical, trachea midline, no adenopathy, thyroid: not enlarged, symmetric, no tenderness/mass/nodules, no carotid bruit and no JVD Lungs: trach dec to auscultation bilaterally Heart: regular rate and rhythm, S1, S2 normal, no murmur, click, rub or gallop Abdomen: soft, non-tender. Bowel sounds normal. No masses, no organomegaly +ft Extremities: extremities normal, atraumatic, no cyanosis or +edema Pulses: 2+ and symmetric Skin: Skin color, texture, turgor normal. No rashes or lesions Neurologic: Grossly normal Last 24 Hour Vital Signs Date Time Temp Pulse Resp B/P (MAP) Pulse Ox O2 Delivery O2 Flow Rate FiO2 01/17/20 15:00 148 28 131/61 (84) 94 01/17/20 14:16 149 135/60 01/17/20 14:00 147 22 121/57 (78) 93 01/17/20 13:00 148 23 109/57 (74) 98 01/17/20 12:17 147 124/62 01/17/20 12:00 Mechanical Ventilator 01/17/20 12:00 146 01/17/20 12:00 144 21 121/59 (79) 98 01/17/20 12:00 99.0 01/17/20 11:15 148 01/17/20 11:00 147 23 120/58 (78) 98 01/17/20 10:15 148 25 128/56 (80) 95 01/17/20 10:00 100 21 144/52 (82) 98 01/17/20 09:00 102 22 141/58 (85) 96 01/17/20 08:00 103 01/17/20 08:00 99.1 105 21 146/59 (88) 96 01/17/20 08:00 Mechanical Ventilator 01/17/20 07:30 104 24 144/56 (85) 95 01/17/20 07:00 106 21 140/66 (90) 97 01/17/20 06:30 104 25 01/17/20 06:00 107 23 135/55 (81) 96 01/17/20 05:00 108 22 140/54 (82) 94 01/17/20 04:00 Mechanical Ventilator 01/17/20 04:00 100 01/17/20 04:00 99.0 108 22 149/54 (85) 95 01/17/20 03:14 106 23 40 01/17/20 03:00 106 25 139/59 (85) 96 01/17/20 02:00 108 21 125/57 (79) 99 01/17/20 01:00 103 21 133/53 (79) 100 01/17/20 00:30 100 20 122/51 (74) 100 01/17/20 00:00 Mechanical Ventilator 01/17/20 00:00 100 22 129/60 (83) 100 01/16/20 23:58 101 23 60 01/16/20 23:30 101 20 128/62 (84) 100 01/16/20 23:00 99 22 124/48 (73) 100 01/16/20 22:30 98 23 124/46 (72) 100 01/16/20 22:00 96 23 119/47 (71) 100 01/16/20 21:00 96 24 119/43 (68) 100 01/16/20 20:00 100 01/16/20 20:00 Mechanical Ventilator 01/16/20 20:00 77 01/16/20 20:00 98.9 94 23 118/41 (66) 100 01/16/20 19:34 95 26 80 01/16/20 19:00 99 24 113/49 (70) 92 01/16/20 18:00 102 29 109/46 (67) 97 01/16/20 18:00 102 25 111/46 (67) 96 01/16/20 17:00 103 28 94/40 (58) 92 01/16/20 17:00 100 01/16/20 16:44 50 Intake and Output 01/16/20 01/17/20 19:00 07:00 Intake Total 1845.5 ml 137.5 ml Output Total 2070 ml 50 ml Balance -224.5 ml 87.5 ml IV Total 1345.5 ml 137.5 ml Blood Product 500 ml Output Urine Total 70 ml 50 ml Hemodialysis UF 2000 ml Laboratory Tests Test 01/17/20 04:10 01/17/20 11:48 White Blood Count 25.9 K/UL (4.8-10.8) #*H Red Blood Count 2.60 M/UL (4.20-5.40) L Hemoglobin 7.3 G/DL (12.0-16.0) L Hematocrit 20.0 % (37.0-47.0) L Mean Corpuscular Volume 77 FL (80-99) L Mean Corpuscular Hemoglobin 28.0 PG (27.0-31.0) Mean Corpuscular Hemoglobin Concent 36.4 G/DL (32.0-36.0) H Red Cell Distribution Width 14.7 % (11.6-14.8) Platelet Count 294 K/UL (150-450) Mean Platelet Volume 4.6 FL (6.5-10.1) L Neutrophils (%) (Auto) % (45.0-75.0) Lymphocytes (%) (Auto) % (20.0-45.0) Monocytes (%) (Auto) % (1.0-10.0) Eosinophils (%) (Auto) % (0.0-3.0) Basophils (%) (Auto) % (0.0-2.0) Differential Total Cells Counted 100 Neutrophils % (Manual) 90 % (45-75) H Lymphocytes % (Manual) 6 % (20-45) L Monocytes % (Manual) 3 % (1-10) Eosinophils % (Manual) 1 % (0-3) Basophils % (Manual) 0 % (0-2) Band Neutrophils 0 % (0-8) Platelet Estimate Adequate Platelet Morphology Normal Hypochromasia 2+ Anisocytosis 2+ Microcytosis 2+ Prothrombin Time 14.3 SEC (9.30-11.50) H Prothromb Time International Ratio 1.3 (0.9-1.1) H Sodium Level 130 MMOL/L (136-145) #L Potassium Level 3.7 MMOL/L (3.5-5.1) Chloride Level 89 MMOL/L (98-107) L Carbon Dioxide Level 20 MMOL/L (21-32) L Anion Gap 21 mmol/L (5-15) H Blood Urea Nitrogen 133 mg/dL (7-18) #H Creatinine 4.5 MG/DL (0.55-1.30) H Estimat Glomerular Filtration Rate 10.5 mL/min (>60) Glucose Level 67 MG/DL (74-106) L Uric Acid 6.5 MG/DL (2.6-7.2) Calcium Level 9.5 MG/DL (8.5-10.1) Phosphorus Level 5.8 MG/DL (2.5-4.9) H Magnesium Level 3.4 MG/DL (1.8-2.4) H Total Bilirubin 0.5 MG/DL (0.2-1.0) Aspartate Amino Transf (AST/SGOT) 23 U/L (15-37) Alanine Aminotransferase (ALT/SGPT) 10 U/L (12-78) L Alkaline Phosphatase 203 U/L (46-116) H C-Reactive Protein, Quantitative 24.0 mg/dL (0.00-0.90) H Pro-B-Type Natriuretic Peptide > 94260 pg/mL (0-125) H Total Protein 7.1 G/DL (6.4-8.2) Albumin 2.6 G/DL (3.4-5.0) L Globulin 4.5 g/dL Albumin/Globulin Ratio 0.6 (1.0-2.7) L Lipase 1171 U/L (73-393) H Random Vancomycin Level 10.1 ug/mL Arterial Blood pH 7.442 (7.350-7.450) Arterial Blood Partial Pressure CO2 26.5 mmHg (35.0-45.0) L Arterial Blood Partial Pressure O2 80.1 mmHg (75.0-100.0) Arterial Blood HCO3 17.7 mmol/L (22.0-26.0) *L Arterial Blood Oxygen Saturation 95.0 % (95-100) Arterial Blood Base Excess -5.8 (-2-2) L Rojas Test Positive Height (Feet): 5 Height (Inches): 6.00 Weight (Pounds): 150 Medications Current Medications Medications (Trade) Dose Ordered Sig/Penny Route PRN Reason Start Time Stop Time Status Last Admin Dose Admin Atorvastatin Calcium (Lipitor) 10 mg BEDTIME GT 01/17/20 21:00 04/16/20 20:59 Chlorhexidine Gluconate (Ling-Hex 2%) 1 applic DAILY@2000 TOPIC 01/17/20 20:00 04/16/20 19:59 Dextrose (Dextrose 50%) 25 ml Q30M PRN IV Hypoglycemia 01/15/20 22:15 04/14/20 22:14 Dextrose (Dextrose 50%) 50 ml Q30M PRN IV Hypoglycemia 01/15/20 22:15 04/14/20 22:14 Diltiazem HCl 125 ml @ 0 mls/hr Q24H IVPB 01/17/20 15:00 01/18/20 14:59 01/17/20 15:13 Meropenem 500 mg/ Sodium Chloride 55 ml @ 110 mls/hr Q24H IVPB 01/17/20 10:30 01/22/20 10:29 01/17/20 11:15 Metoclopramide HCl (Reglan) 5 mg Q6H PRN IVP Nausea & Vomiting 01/15/20 22:15 02/14/20 22:14 Pantoprazole (Protonix) 40 mg EVERY 12 HOURS IV 01/16/20 09:00 02/15/20 08:59 01/17/20 08:11 Sodium Chloride 250 ml @ 30 mls/hr ONCE ONCE IV 01/17/20 10:00 01/17/20 18:19 01/17/20 09:32 Vancomycin HCl (Vanco pharmacy to dose) 1 ea DAILY PRN MISC Per rx protocol 01/15/20 22:15 02/14/20 22:14 Zinc Oxide (Zinc Oxide) 1 applic TIDPRN PRN TOPIC diogenes GT 01/16/20 13:15 04/15/20 13:14 01/16/20 14:55 Assessment/Plan Problem List: (1) Dehydration ICD Codes: E86.0 - Dehydration SNOMED: 97420561 (2) Acidosis ICD Codes: E87.2 - Acidosis SNOMED: 19079102, 267482496 (3) Depression ICD Codes: F32.9 - Major depressive disorder, single episode, unspecified SNOMED: 26160818, 086323780 (4) Pleural effusion ICD Codes: J90 - Pleural effusion, not elsewhere classified SNOMED: 80871202 (5) Respiratory failure ICD Codes: J96.90 - Respiratory failure, unspecified, unspecified whether with hypoxia or hypercapnia SNOMED: 323640272, 379959089 (6) Schizophrenia ICD Codes: F20.9 - Schizophrenia, unspecified SNOMED: 45701972, 714146460 (7) Hypoxia ICD Codes: R09.02 - Hypoxemia SNOMED: 704344052, 196188079 (8) UTI (urinary tract infection) ICD Codes: N39.0 - Urinary tract infection, site not specified SNOMED: 65114362, 741078379 (9) Pneumonia ICD Codes: J18.9 - Pneumonia, unspecified organism SNOMED: 711351492, 306754937 (10) NSTEMI (non-ST elevated myocardial infarction) ICD Codes: I21.4 - Non-ST elevation (NSTEMI) myocardial infarction SNOMED: 36432440 (11) Tracheostomy in place ICD Codes: Z93.0 - Tracheostomy status SNOMED: 358192249 (12) Feeding by G-tube ICD Codes: Z93.1 - Gastrostomy status SNOMED: 414642927, 068787282 (13) JAVIER (acute kidney injury) ICD Codes: N17.9 - Acute kidney failure, unspecified SNOMED: 2842059, 33729041 (14) Acute encephalopathy ICD Codes: G93.40 - Encephalopathy, unspecified SNOMED: 91165717, 599239931 (15) Sacral decubitus ulcer, stage IV ICD Codes: L89.154 - Pressure ulcer of sacral region, stage 4 SNOMED: 490899020, 445971893 (16) Chronic respiratory failure ICD Codes: J96.10 - Chronic respiratory failure, unspecified whether with hyp oxia or hypercapnia SNOMED: 85832958 (17) Ascites ICD Codes: R18.8 - Other ascites SNOMED: 925192584 (18) Bacteremia ICD Codes: R78.81 - Bacteremia SNOMED: 6050840 (19) Hypernatremia ICD Codes: E87.0 - Hyperosmolality and hypernatremia SNOMED: 206021570 (20) Proteinuria ICD Codes: R80.9 - Proteinuria, unspecified SNOMED: 92215109, 512819301 (21) Electrolyte imbalance ICD Codes: E87.8 - Other disorders of electrolyte and fluid balance, not elsewhere classified SNOMED: 555019994 (22) ACS (acute coronary syndrome) ICD Codes: I24.9 - Acute ischemic heart disease, unspecified SNOMED: 059616617, 725769624 (23) Aortic dissection, thoracic ICD Codes: I71.01 - Dissection of thoracic aorta SNOMED: 403424206 (24) Respiratory failure, acute and chronic ICD Codes: J96.20 - Acute and chronic respiratory failure, unspecified whether with hypoxia or hypercapnia SNOMED: 09862537, 685341407 (25) JAVIER (acute kidney injury) ICD Codes: N17.9 - Acute kidney failure, unspecified SNOMED: 30560235 (26) Abrasion of lip, initial encounter ICD Codes: S00.511A - Abrasion of lip, initial encounter SNOMED: 657145875, 74245798 (27) COPD with exacerbation ICD Codes: J44.1 - Chronic obstructive pulmonary disease with (acute) exacerbation SNOMED: 997214817, 23334775 (28) Elevated alkaline phosphatase level ICD Codes: R74.8 - Abnormal levels of other serum enzymes SNOMED: 992248464 (29) Renal failure (ARF), acute on chronic ICD Codes: N17.9 - Acute kidney failure, unspecified; N18.9 - Chronic kidney disease, unspecified SNOMED: 592785216 (30) HCAP (healthcare-associated pneumonia) ICD Codes: J18.9 - Pneumonia, unspecified organism SNOMED: 609063150, 314541934 (31) GT CLOGGED (32) Elevated lipase ICD Codes: R74.8 - Abnormal levels of other serum enzymes SNOMED: 981873317 (33) Pancreatitis ICD Codes: K85.90 - Acute pancreatitis without necrosis or infection, unspecified SNOMED: 61061285 (34) Elevated troponin ICD Codes: R77.8 - Other specified abnormalities of plasma proteins SNOMED: 148151768, 380892161, 675192862 (35) Hypokalemia ICD Codes: E87.6 - Hypokalemia SNOMED: 85604054 (36) Hyponatremia ICD Codes: E87.1 - Hypo-osmolality and hyponatremia SNOMED: 24231285 (37) Anemia ICD Codes: D64.9 - Anemia, unspecified SNOMED: 723773336 (38) Renal failure ICD Codes: N19 - Unspecified kidney failure SNOMED: 36593569, 966721527 (39) ARF (acute renal failure) ICD Codes: N17.9 - Acute kidney failure, unspecified SNOMED: 03452568, 557758547 (40) Pacemaker ICD Codes: Z95.0 - Presence of cardiac pacemaker SNOMED: 764531350 (41) Sepsis Assessment & Plan: leukocytosis anemia on HD renal insufficiency wounds addressed pt presented on admission with Tracheostomy ,GT and Multiple Pressure Injuries. Skin assessment of skin under tracheal collar without evidence of skin breakdown. Peristomal GT site excoriated.Moderate amt of dark red sanguineous exudate. Full Thickness Sacral Pressure Injury with undermined borders (L)9 cm x (W)12cm x (D)1.8cm,Undermining clockwise8-9 by 2.2cm @1o'clock,undermining clockwise 1-4 by 1.9 @ 9'oclock Scattered necrotic tissue within wound bed. Borders are loose and necrotic with marginal erythema to outer perimeter of wound. NO elevation in skin temp noted periwound. Wound is malodorous. Small amt Brown exudate noted. Resolving Pressure Injury L Ischium(L)1.5cm x (W)1.5cm. Base of wound is 80% pink epithelial with an area that is moist and pink. NO odor or exudate noted. Bilat foot-drop noted. L Heel is boggy with non-blanchable erythema(L)4cm x (W)4cm. R heel is boggy with non-Blanchable erythema(L)5cm x (W)6cm. Tx.Plan: Cleanse sacral wound with Dakin's 0.125% annie. Loosely pack with Dakin's moistened Kerlix(Attention to undermined borders). Apply Moisture Barrier Paste periwound. Cover with Optifoam drsg. Change Daily and PRN. Apply Cavilon Skin Barrier to R and L Hels. Cover each heel with Optifoam drsg. Change every 7 days and prn. Reposition at least every 2hours or as tolerated. Off-load heels with Pillow. APM/JENNIFER MAttress overlay DAILY ESTIMATED NEEDS: Needs based on Critical care, wound, renal dysfunction 56 kg abw 28-33 kcals/kg 7194-7046 total kcals W/ HD (1.5-2.0) g protein/kg 84-112 g total protein Fluid per MD mL/kg . total fluid mLs NUTRITION DIAGNOSIS: * Swallowing difficulty R/T dysphagia, respiratory status as evidenced by vent dep via trach, GT Dep. * Increase kcal and pro needs r/t wound healing, renal dysfunction as evidenced by admitted w/ large, advanced sacral wound, previously stage 4, pending eval, admitted w/ JAVIER, pending HD. CURRENT TF:NPO ENTERAL NUTRITION RECOMMENDATIONS: Nepro @ 40ml/hr x 24 hrs + Prosource 1pkt QD to provide 960ml, 1728kcal, 78g+11g prot, 698ml free water * As medically appropriate, initiate TF on Nepro, rec goal rate fo 40ml/hr x 24 hrs * Add Prosource 1pkt QD to better meet increased protein needs (additional 11g prot) * Water flush per MD/ HOB over 30 degrees ADDITIONAL RECOMMENDATIONS: * Per SNF in NOV 2019: HT=63"/ Rec daily calibrated bedscale wt * Monitor for continuity of HD: non-tunneled cath placement ordered * Monitor lytes and renal fxn for improvement (Na low, K and phos elevated) * Wound care: add Nephrovite x 1, ZnSO4 220mg QD x 10 days Reynaldo BID via PEG (mix w/ 2-4 oz water) * Monitor BG closely for hypoglycemia while NPO (h/o DM, on Nacl 3% to correct hyponatremia, consider accuchecks) ICD Codes: A41.9 - Sepsis, unspecified organism SNOMED: 48610309 (42) Hyponatremia ICD Codes: E87.1 - Hypo-osmolality and hyponatremia SNOMED: 30943857 Lane Saavedra Jan 17, 2020 16:25
--- NOTE | 2020-01-17 16:27 | NUR ---
CASE MANAGEMENT:INITIAL REVIEW 49 YR OLD FEMALE BIBA FROM [facility] CC;DYSPNEA. RESPIRATORY DISTRESS. SI;ANEMIA. HYPONATREMIA. PANCREATITIS. RENAL FAILURE. SEPSIS. ELEVATED TROPONIN. 99.1 101 33 139/43 96% TRACH/VENT FIO2 100% WBC 23.8 H/H 7.3/21.7 NA 103 K+ 5.4 BUN 233 CR 6.3 CA 10.2 PHOS 9.1 MAG 4.1 FERRITIN 1132 ALP 252 TROP 0.299 CRP 21.8 BNP >66036 ALB 2.4 LIPASE >2000 PT 16.3 INR 1.5 APTT 27 D-DIMER 14.28 UA OSMOLALITY 304 UR RANDOM Na 152 ABG ~ pH 7.252 pCO2 30.7 pO2 119.1 HCO3 13.2 BASE EXCESS -12.8 BLOOD CX ~ + GPC IN CLUSTERS-STAPHYLOCOCCUS CXR ~ Large left pleural effusion. Bilateral interstitial and airspace infiltrates versus edema. IS;DECADRON IV VANCOMYCIN IV ZOSYN IV IVF NS BOLUS CALCIUM GLUCONATE IV INSULIN HUMAN IV IVF D5 ADMITTED TO ICU ICU STATUS DCP;FROM [facility]
[2020-01-17] MEDS ORDERED: TRAMADOL HCL GT (16:51)
[2020-01-17] MEDS ORDERED: SILVADENE20 GM TP (16:51)
[2020-01-17] MEDS ORDERED: VITAMIN D3125 MCG GT (16:51)
[2020-01-17] MEDS ORDERED: UTI-STAT L3875 MG/31 GT (16:51)
--- NOTE | 2020-01-17 16:51 | NUR ---
NURSE NOTES: Pt maxed out on cardizem @ 15 ml/hr. HR still 147, aflutter.
--- NOTE | 2020-01-17 16:59 | NUR ---
NIPPLE MAKER NOTE SW spoke w/ pt's aunt, Yazmin [phone] that she will not make any decision/provide consent for pt. Per Yazmin, she is aware that pt's mother cannot be reached at this time. Yazmin informs this SW that she is not in contact w/ pt's grandmother Radha. Pt's sister Agustina and aunt Yazmin will NOT provide any consent/make decision for pt. This SW is unable to locate the grandmother's contact information.
[2020-01-17] MEDS ORDERED: CHLORHEXIDINE473 ML MM (17:07)
[2020-01-17] MEDS ORDERED: ATROVENT HFA12.9 GM IH (17:07)
--- NOTE | 2020-01-17 17:23 | NUR ---
NURSE NOTES: left femoral arden cath dressing soiled with blood. Dressing changed using sterile technique.
--- NOTE | 2020-01-17 17:27 | NUR ---
NURSE NOTES: Left message with Dr. Willams regarding pt's unchanged heart rate and rhythm; awaiting response.
--- NOTE | 2020-01-17 18:59 | NUR ---
NURSE NOTES: Spoke with Dr. Willams regarding heart rate. Per MD, stop cardizem drip and order amiodarone drip per protocol with loading dose per protocol. Noted and carried out.
--- NOTE | 2020-01-17 19:28 | NUR ---
NURSE HAND-OFF REPORT: Latest Vital Signs: Temperature 99.3 , Pulse 145 , B/P 123 /60 , Respiratory Rate 30 , O2 SAT 93 , Mechanical Ventilator, O2 Flow Rate . Vital Sign Comment: EKG Rhythm: Atrial Flutter Rhythm change?: Gabriel HATFIELD Notified?: CHARITY VIDALES MD Response: Order Received& Read Back Latest Chavarria Fall Score: 70 Fall Risk: High Risk Safety Measures: Call light Within Reach, Bed Alarm Zone 2, Side Rails Side Rails x2, Bed position Low and Locked. Fall Precautions: Yellow Socks Door Sign Patient Fall Education Report given to ERASMO Starr.
--- NOTE | 2020-01-17 19:30 | NUR ---
NURSE NOTES: Received report from ERASMO Galvez. patient in bed with eyes open, able to trach. trach to vent. Shiley 7 XLT, AC 20, TV500 fi02 40 % peep 5 satting 100%. HOB elevated. GT intact. GT site noted with excoriation,placed GT dressing. GT intact running Nephro at 20cc/hr. no residual. Norman cath with hematuria with poor output. patient with generalized edema, facial edema and lower extremities pitting edema +3. bilateral extremities elevated with pillows. Right AC#20 and Left Wrist #18 intact no s/s of infiltration. Left Femoral Charlie cath with pigtail dressing intact.Contact isolation maintained and observed. Covid swab pending PUI. no fever. Call light within easy reach. bed alarm on. bed locked and in low position. will continue plan of care.
[2020-01-17] MEDS ORDERED: Amiodarone 900 MG in D5W 500ml 482 ML IV SCH (20:00)
[2020-01-17] MEDS: Dyna-Hex 2% Top Sol 2oz TOPIC SCH (20:13)
--- NOTE | 2020-01-17 20:14 | NUR ---
NURSE NOTES: started Amiodarone drip at 1mg/min per protocol for aflutter HR141 BP 125/66.
--- NOTE | 2020-01-17 22:41 | NUR ---
NURSE NOTES: Blood glucose 104mg/dl.
[2020-01-18] VITALS (16 sets, daily range): BP systolic 92–158; BP diastolic 48–77
--- NOTE | 2020-01-18 00:58 | NUR ---
HAND-OFF: Report given to ERASMO Meraz.
--- NOTE | 2020-01-18 01:00 | NUR ---
NURSE NOTES: Received patient and report from ERASMO Starr. Patient is observed resting in bed and remains alert and disoriented. Pt remains unable to follow commands. FLACC score of 0 noted upon assessment. Pt is currently trach to vent and pt appears to be tolerating current vent settings well. Vent settings as follows: AC 20 TV 500 FiO2 40% PEEP 8 with an O2 saturation of 100% noted. Bilateral lower lobe breath sounds noted to be diminished upon auscultation. Pt noted to be A Flutter on tele monitor with a HR of 135, BP remains stable at this time. R AC 20g, L Wrist 18g and L Femoral Charlie catheter noted which remains asymptomatic, intact and patent. Central line dressing remains clean, dry and intact. Amiodarone currently infusing at 1mg/min as ordered. Active bowel sounds noted in all four quadrants; abdomen remains large, round and soft. G Tube noted which remains intact, patent and currently infusing Nepro at 20mL/hr as ordered. Norman catheter noted draining hematuria to gravity. Diagnostics reviewed at bedside. Skin alterations noted. ROM exercises performed per pt tolerance and CMS remains intact. Fall, Aspiration and Skin precautions observed. Pt repositioned for comfort and safety. Pt remains resting in bed; Bed remains in the lowest position with the safety wheels engaged, call light within reach, side rails up x3 and bed alarm activated. Will continue plan of care. Will continue to monitor.
--- NOTE | 2020-01-18 03:00 | NUR ---
NURSE NOTES: Pt provided with a bed bath, oral care and linen change. Suctioning provided for excess secretions. Central line dressing noted to be soiled and therefore changed per protocol. Central line dressing now remains clean, dry and intact. Pt remains free from s/sx of acute cardiopulmonary distress at this time. Amiodarone continues to infuse at 0.5mg/min as ordered. VS obtained and remain stable at this time. Pt repositioned for safety and comfort. Fall, Aspiration and Skin precautions observed. Pt remains resting in bed; Bed remains in the lowest position with the safety wheels engaged, call light within reach, side rails up x3 and bed alarm activated. Will continue plan of care. Will continue to monitor.
--- NOTE | 2020-01-18 04:25 | NUR ---
NURSE NOTES: HD nurse present at bedside preparing to initiate HD as ordered. Will continue to monitor.
--- NOTE | 2020-01-18 05:00 | NUR ---
NURSE NOTES: Bedside assessment performed, assessed pt for pain with a FLACC score of 0 noted. Pt noted to be sleeping comfortably at this time. Pt remains free from s/sx of acute cardiopulmonary distress at this time. HD currently being performed and dialysis nurse remains present at bedside. Pt remains free from s/sx of adverse events related to HD. VS remain stable at this time. Pt appears to be tolerating care well. Pt repositioned self for safety and comfort. Fall, Aspiration and Skin precautions observed. Pt remains resting in bed; Bed remains in the lowest position with the safety wheels engaged, call light within reach, side rails up x3 and bed alarm activated. Will continue plan of care. Will continue to monitor.
[2020-01-18 06:15] LABS: HEMATOCRIT 19.4 % (37.0-47.0); MEAN CORPUSCULAR VOLUME 81 FL (80-99); PLATELET COUNT 239 K/UL (150-450); RED CELL DISTRIBUTION WIDTH 14.7 % (11.6-14.8)
[2020-01-18 06:19] LABS: AMYLASE 309 U/L (25-115); HEMOGLOBIN 6.8 G/DL (12.0-16.0); WHITE BLOOD COUNT 27.6 K/UL (4.8-10.8)
[2020-01-18 06:33] LABS: ALANINE AMINOTRANSFERASE 9 U/L (12-78); ALBUMIN 2.2 G/DL (3.4-5.0); ALBUMIN/GLOBULIN RATIO 0.5 (1.0-2.7); ALKALINE PHOSPHATASE 183 U/L (46-116); ANION GAP 21 mmol/L (5-15); ASPARTATE AMINO TRANSFERASE 24 U/L (15-37); BILIRUBIN,TOTAL 0.5 MG/DL (0.2-1.0); BLOOD UREA NITROGEN 158 mg/dL (7-18); CALCIUM 8.7 MG/DL (8.5-10.1); CARBON DIOXIDE 18 MMOL/L (21-32); CHLORIDE 93 MMOL/L (98-107); CREATININE 5.1 MG/DL (0.55-1.30); PHOSPHORUS 7.7 MG/DL (2.5-4.9); POTASSIUM 4.2 MMOL/L (3.5-5.1); SODIUM 132 MMOL/L (136-145)
--- NOTE | 2020-01-18 07:03 | General Progress Note ---
Subjective ROS Limited/Unobtainable: No Allergies: Coded Allergies: No Known Allergies (Unverified , 10/10/17) Objective Last 24 Hour Vital Signs Date Time Temp Pulse Resp B/P (MAP) Pulse Ox O2 Delivery O2 Flow Rate FiO2 01/18/20 06:31 133 25 01/18/20 06:00 134 25 104/77 (86) 99 01/18/20 05:00 133 23 127/50 (75) 100 01/18/20 04:00 99.1 132 25 138/53 (81) 100 01/18/20 04:00 Mechanical Ventilator Mechanical Ventilator 01/18/20 03:19 131 26 50 01/18/20 03:05 140 01/18/20 03:00 130 27 158/77 (104) 100 01/18/20 02:00 134 27 140/64 (89) 93 01/18/20 01:00 136 27 144/57 (86) 93 01/18/20 00:30 137 27 136/55 (82) 94 01/18/20 00:15 136 27 150/59 (89) 94 01/18/20 00:00 99.0 137 27 119/56 (77) 94 01/18/20 00:00 Mechanical Ventilator 01/18/20 00:00 140 01/17/20 23:45 138 28 133/62 (85) 94 01/17/20 23:30 138 26 120/59 (79) 96 01/17/20 23:00 137 26 150/76 (100) 100 01/17/20 22:50 137 26 50 01/17/20 22:30 139 28 139/80 (99) 93 01/17/20 22:00 139 26 140/61 (87) 97 01/17/20 21:30 140 28 126/71 (89) 97 01/17/20 21:00 139 29 117/87 (97) 94 01/17/20 20:30 140 28 105/65 (78) 95 01/17/20 20:00 141 01/17/20 20:00 Mechanical Ventilator 01/17/20 20:00 99.0 141 23 131/56 (81) 97 01/17/20 20:00 40 01/17/20 19:54 140 26 50 01/17/20 19:30 145 28 124/65 (84) 94 01/17/20 19:00 145 28 132/74 (93) 95 01/17/20 18:00 145 30 123/60 (81) 93 01/17/20 17:00 147 28 127/59 (81) 97 01/17/20 16:00 146 30 133/66 (88) 98 01/17/20 16:00 99.3 01/17/20 16:00 Mechanical Ventilator 01/17/20 16:00 146 01/17/20 15:17 149 29 40 01/17/20 15:00 148 28 131/61 (84) 94 01/17/20 14:16 149 135/60 01/17/20 14:00 147 22 121/57 (78) 93 01/17/20 13:00 148 23 109/57 (74) 98 01/17/20 12:17 147 124/62 01/17/20 12:00 Mechanical Ventilator 01/17/20 12:00 146 01/17/20 12:00 144 21 121/59 (79) 98 01/17/20 12:00 99.0 01/17/20 11:33 145 24 40 01/17/20 11:15 148 01/17/20 11:00 147 23 120/58 (78) 98 01/17/20 10:15 148 25 128/56 (80) 95 01/17/20 10:00 100 21 144/52 (82) 98 01/17/20 09:00 102 22 141/58 (85) 96 01/17/20 08:00 103 01/17/20 08:00 99.1 105 21 146/59 (88) 96 01/17/20 08:00 Mechanical Ventilator 01/17/20 07:30 104 24 144/56 (85) 95 01/17/20 07:18 104 22 40 Intake and Output 01/17/20 01/18/20 19:00 07:00 Intake Total 95.625 ml 572.777 ml Output Total 75 ml 55 ml Balance 20.625 ml 517.777 ml Free Water 30 ml IV Total 35.625 ml 262.777 ml Tube Feeding 60 ml 220 ml Other 60 ml Output Urine Total 75 ml 55 ml Hemodialysis UF 0 ml Laboratory Tests 01/17/20 11:48: Arterial Blood pH 7.442, Arterial Blood Partial Pressure CO2 26.5L, Arterial Blood Partial Pressure O2 80.1, Arterial Blood HCO3 17.7*L, Arterial Blood Oxygen Saturation 95.0, Arterial Blood Base Excess -5.8L, Rojas Test Positive 01/18/20 04:00: White Blood Count 27.6*H, Red Blood Count 2.40L, Hemoglobin 6.8*L, Hematocrit 19.4L, Mean Corpuscular Volume 81, Mean Corpuscular Hemoglobin 28.5, Mean Corpuscular Hemoglobin Concent 35.3, Red Cell Distribution Width 14.7, Platelet Count 239, Mean Platelet Volume 5.2L, Neutrophils (%) (Auto) , Lymphocytes (%) (Auto) , Monocytes (%) (Auto) , Eosinophils (%) (Auto) , Basophils (%) (Auto) , Neutrophils % (Manual) [Pending], Lymphocytes % (Manual) [Pending], Platelet Estimate [Pending], Platelet Morphology [Pending], Sodium Level 132L, Potassium Level 4.2, Chloride Level 93L, Carbon Dioxide Level 18L, Anion Gap 21H, Blood Urea Nitrogen 158H, Creatinine 5.1H, Estimat Glomerular Filtration Rate 9.1, Glucose Level 99, Uric Acid 7.9H, Calcium Level 8.7, Phosphorus Level 7.7H, Magnesium Level 3.4H, Total Bilirubin 0.5, Aspartate Amino Transf (AST/SGOT) 24, Alanine Aminotransferase (ALT/SGPT) 9L, Alkaline Phosphatase 183H, Troponin I 1.061H, C-Reactive Protein, Quantitative 26.9H, Pro-B-Type Natriuretic Peptide > 48861B, Total Protein 6.6, Albumin 2.2L, Globulin 4.4, Albumin/Globulin Ratio 0.5L, Amylase Level 309H, Lipase 1357H 01/18/20 06:20: POC Whole Blood Glucose [Pending] 01/18/20 06:42: POC Whole Blood Glucose [Pending] Height (Feet): 5 Height (Inches): 6.00 Weight (Pounds): 150 General Appearance: lethargic EENT: normal ENT inspection Neck: supple Cardiovascular: tachycardia Respiratory/Chest: decreased breath sounds Extremities: non-tender Assessment/Plan Problem List: (1) Hx of CABG ICD Codes: Z95.1 - Presence of aortocoronary bypass graft SNOMED: 434918571, 884563030 (2) History of tracheostomy ICD Codes: Z98.890 - Other specified postprocedural states SNOMED: 659195819, 273267644 (3) PEG (percutaneous endoscopic gastrostomy) status ICD Codes: Z93.1 - Gastrostomy status SNOMED: 872796559, 981319285 (4) S/P aortic dissection repair ICD Codes: Z98.890 - Other specified postprocedural states SNOMED: 963944963, 656423363 (5) Renal failure ICD Codes: N19 - Unspecified kidney failure SNOMED: 65220358, 797400005 (6) Anemia ICD Codes: D64.9 - Anemia, unspecified SNOMED: 727303877 Assessment/Plan: not stable for GI procedures ppi blood transfusion fu labs EGD when more stable GT topical care low dose GTF tolerated fu nephrology HD per nephrology Inder Mccauley MD Jan 18, 2020 07:03
--- NOTE | 2020-01-18 07:11 | NUR ---
NURSE HAND-OFF REPORT: Latest Vital Signs: Temperature 99.1 , Pulse 136 , B/P 107 /52 , Respiratory Rate 23 , O2 SAT 100 , Mechanical Ventilator, O2 Flow Rate . Vital Sign Comment: VS remained stable for duration of shift EKG Rhythm: Atrial Flutter Rhythm change?: N MD Notified?: N Response: N/A Latest Chavarria Fall Score: 70 Fall Risk: High Risk Safety Measures: Call light Within Reach, Bed Alarm Zone 2, Side Rails Side Rails x2, Bed position Low and Locked. Fall Precautions: Yellow Socks Door Sign Patient Fall Education Report given to ERASMO Valencia. Endorsed plan of care.
--- NOTE | 2020-01-18 07:15 | NUR ---
NURSE NOTES: Received report from Lyric ZIMMERMAN. Pt. in bed, sleeping but arousable. No sign of distress. Mech. vent dependent with setting of AC20/VT500/Fi O2 at 40%/P8. No grimacing noted. HOB elevated at all times. On GTF Nepro at 20cc/hr. cont. Tolerating well. No n/v noted. F/C in placed patent/intact draining hematuria colored urine. IV at right AC #20g. and left wrist #18g. in placed patent/intact. Bed in low position, locked. Call light within reach. Will cont. to monitor.
[2020-01-18] MEDS: Pantoprazole Inj IV SCH ×2 (08:30→20:59)
[2020-01-18] MEDS: Meropenem 500 MG in NS 55 ML IVPB SCH (09:40)
--- NOTE | 2020-01-18 09:57 | Nephrology Progress Note ---
Assessment/Plan Problem List: (1) ARF (acute renal failure) (2) Pacemaker (3) Sepsis (4) Hyponatremia Assessment (1) JAVIER (acute kidney injury) (2) Renal failure (ARF), acute on chronic (3) Feeding by G-tube (4) Tracheostomy in place (5) Electrolyte imbalance, hyponatremia (6) Anemia, severe (7) Respiratory failure, acute and chronic (8) Elevated lipase, pancreatitis (9) Elevated troponin I (10) Sepsis Plan January 17: Dialyzed this morning. Labs reviewed. Renal parameters and electrolyte abnormalities improved. Discussed with RN. Continue per consultants. January 16: Dialyzed yesterday. Labs improved. Next dialysis tomorrow. Continue per consultants. January 15: Patient to have dialysis catheter. Emergency dialysis for correction of uremia and electrolyte imbalances Antibiotics Transfusion Continue to monitor renal parameters Per orders Discussed with RN Subjective ROS Limited/Unobtainable: Yes Objective Objective Last 24 Hour Vital Signs Date Time Temp Pulse Resp B/P (MAP) Pulse Ox O2 Delivery O2 Flow Rate FiO2 01/18/20 09:00 73 22 105/48 (67) 99 01/18/20 08:00 Mechanical Ventilator Mechanical Ventilator 01/18/20 08:00 99.2 135 20 92/54 (67) 99 01/18/20 07:00 136 23 107/52 (70) 100 01/18/20 06:31 133 25 01/18/20 06:00 134 25 104/77 (86) 99 01/18/20 05:00 133 23 127/50 (75) 100 01/18/20 04:00 99.1 132 25 138/53 (81) 100 01/18/20 04:00 Mechanical Ventilator Mechanical Ventilator 01/18/20 03:19 131 26 50 01/18/20 03:05 140 01/18/20 03:00 130 27 158/77 (104) 100 01/18/20 02:00 134 27 140/64 (89) 93 01/18/20 01:00 136 27 144/57 (86) 93 01/18/20 00:30 137 27 136/55 (82) 94 01/18/20 00:15 136 27 150/59 (89) 94 01/18/20 00:00 99.0 137 27 119/56 (77) 94 01/18/20 00:00 Mechanical Ventilator 01/18/20 00:00 140 01/17/20 23:45 138 28 133/62 (85) 94 01/17/20 23:30 138 26 120/59 (79) 96 01/17/20 23:00 137 26 150/76 (100) 100 01/17/20 22:50 137 26 50 01/17/20 22:30 139 28 139/80 (99) 93 01/17/20 22:00 139 26 140/61 (87) 97 01/17/20 21:30 140 28 126/71 (89) 97 01/17/20 21:00 139 29 117/87 (97) 94 01/17/20 20:30 140 28 105/65 (78) 95 01/17/20 20:00 141 01/17/20 20:00 Mechanical Ventilator 01/17/20 20:00 99.0 141 23 131/56 (81) 97 01/17/20 20:00 40 01/17/20 19:54 140 26 50 01/17/20 19:30 145 28 124/65 (84) 94 01/17/20 19:00 145 28 132/74 (93) 95 01/17/20 18:00 145 30 123/60 (81) 93 01/17/20 17:00 147 28 127/59 (81) 97 01/17/20 16:00 146 30 133/66 (88) 98 01/17/20 16:00 99.3 01/17/20 16:00 Mechanical Ventilator 01/17/20 16:00 146 01/17/20 15:17 149 29 40 01/17/20 15:00 148 28 131/61 (84) 94 01/17/20 14:16 149 135/60 01/17/20 14:00 147 22 121/57 (78) 93 01/17/20 13:00 148 23 109/57 (74) 98 01/17/20 12:17 147 124/62 01/17/20 12:00 Mechanical Ventilator 01/17/20 12:00 146 01/17/20 12:00 144 21 121/59 (79) 98 01/17/20 12:00 99.0 01/17/20 11:33 145 24 40 01/17/20 11:15 148 01/17/20 11:00 147 23 120/58 (78) 98 01/17/20 10:15 148 25 128/56 (80) 95 01/17/20 10:00 100 21 144/52 (82) 98 Intake and Output 01/17/20 01/18/20 18:59 06:59 Intake Total 99.375 ml 596.527 ml Output Total 70 ml 60 ml Balance 29.375 ml 536.527 ml Free Water 30 ml IV Total 59.375 ml 266.527 ml Tube Feeding 40 ml 240 ml Other 60 ml Output Urine Total 70 ml 60 ml Hemodialysis UF 0 ml Current Medications Medications (Trade) Dose Ordered Sig/Penny Route PRN Reason Start Time Stop Time Status Last Admin Dose Admin Amiodarone HCl 900 mg/Dextrose 500 ml @ 0 mls/hr Q24H IV 01/17/20 20:00 02/16/20 19:59 01/17/20 20:14 Atorvastatin Calcium (Lipitor) 10 mg BEDTIME GT 01/17/20 21:00 04/16/20 20:59 01/17/20 20:14 Chlorhexidine Gluconate (Ling-Hex 2%) 1 applic DAILY@1999 TOPIC 01/17/20 20:00 04/16/20 19:59 01/17/20 20:13 Dextrose (Dextrose 50%) 25 ml Q30M PRN IV Hypoglycemia 01/15/20 22:15 04/14/20 22:14 Dextrose (Dextrose 50%) 50 ml Q30M PRN IV Hypoglycemia 01/15/20 22:15 04/14/20 22:14 Meropenem 500 mg/ Sodium Chloride 55 ml @ 110 mls/hr Q24H IVPB 01/17/20 10:30 01/22/20 10:29 01/18/20 09:40 Metoclopramide HCl (Reglan) 5 mg Q6H PRN IVP Nausea & Vomiting 01/15/20 22:15 02/14/20 22:14 Pantoprazole (Protonix) 40 mg EVERY 12 HOURS IV 01/16/20 09:00 02/15/20 08:59 01/18/20 08:30 Vancomycin HCl (Vanco pharmacy to dose) 1 ea DAILY PRN MISC Per rx protocol 01/15/20 22:15 02/14/20 22:14 Zinc Oxide (Zinc Oxide) 1 applic TIDPRN PRN TOPIC diogenes GT 01/16/20 13:15 04/15/20 13:14 12/3/20 14:55 Laboratory Tests 01/17/20 11:48: Arterial Blood pH 7.442, Arterial Blood Partial Pressure CO2 26.5L, Arterial Blood Partial Pressure O2 80.1, Arterial Blood HCO3 17.7*L, Arterial Blood Oxygen Saturation 95.0, Arterial Blood Base Excess -5.8L, Rojas Test Positive 01/18/20 04:00: White Blood Count 27.6*H, Red Blood Count 2.40L, Hemoglobin 6.8*L, Hematocrit 19.4L, Mean Corpuscular Volume 81, Mean Corpuscular Hemoglobin 28.5, Mean Corpuscular Hemoglobin Concent 35.3, Red Cell Distribution Width 14.7, Platelet Count 239, Mean Platelet Volume 5.2L, Neutrophils (%) (Auto) , Lymphocytes (%) (Auto) , Monocytes (%) (Auto) , Eosinophils (%) (Auto) , Basophils (%) (Auto) , Neutrophils % (Manual) [Pending], Lymphocytes % (Manual) [Pending], Platelet Estimate [Pending], Platelet Morphology [Pending], Sodium Level 132L, Potassium Level 4.2, Chloride Level 93L, Carbon Dioxide Level 18L, Anion Gap 21H, Blood Urea Nitrogen 158H, Creatinine 5.1H, Estimat Glomerular Filtration Rate 9.1, Glucose Level 99, Uric Acid 7.9H, Calcium Level 8.7, Phosphorus Level 7.7H, Magnesium Level 3.4H, Total Bilirubin 0.5, Aspartate Amino Transf (AST/SGOT) 24, Alanine Aminotransferase (ALT/SGPT) 9L, Alkaline Phosphatase 183H, Troponin I 1.061H, C-Reactive Protein, Quantitative 26.9H, Pro-B-Type Natriuretic Peptide > 66384O, Total Protein 6.6, Albumin 2.2L, Globulin 4.4, Albumin/Globulin Ratio 0.5L, Amylase Level 309H, Lipase 1357H 01/18/20 06:20: POC Whole Blood Glucose [Pending] 01/18/20 06:42: POC Whole Blood Glucose [Pending] Height (Feet): 5 Height (Inches): 6.00 Weight (Pounds): 150 General Appearance: no apparent distress EENT: other - Trach to vent Cardiovascular: tachycardia Respiratory/Chest: decreased breath sounds Abdomen: distended Fouladian,Johnny MD Jan 18, 2020 09:57
--- NOTE | 2020-01-18 10:36 | NUR ---
NURSE NOTES: Handoff received from Sergo RN. Patient transferred from ICU to [facility] and now in room 237-1. Patient responds to voice. Patient spontaneously opens eyes, patient is on trach to vent with settings: Shiley 7, AC20, TV500, YN8287% and PEEP 8 no signs of respiratory distress noted, patient is satting at 96. Patient is having gross hematuria, also informed from [facility] that patient is having bleeding from the stools, MD is aware and patient is waiting for 1 unit PRBC from blood bank to be administered. Patient has L femoral arden catheter for dialysis, was dialyzed toda, patient also has R AC 20g and L wrist 18g running amiodarone at 0.5mg/min. Patient is on contact, fall and aspiration precautions. Patient has G tube running Nepro @20ML/HR and raymond patent and draining bright red colored urine. Wound pictures taken upon transfer. Belongings list signed and placed in chart. Will monitor follow plan of care. Patient vitals are: BP 100/43 HR 66, temp 100.2 RR 18, O@ sat 96%
--- NOTE | 2020-01-18 10:42 | NUR ---
NURSE NOTES: Hand over report given to Javier ZIMMERMAN. Pt. remain stable. No call from Blood bank for blood transfusion order this morning for this pt. Notified Javier ZIMMERMAN.
--- NOTE | 2020-01-18 12:57 | Cardiology Report ---
APPROVED REPORT EKG Measurement Heart [id number] OR P76 [id number] <Conclusion> Atrial flutter with 2:[address] and T wave abnormality Abnormal ECG
--- NOTE | 2020-01-18 14:50 | NUR ---
NURSE NOTES:Blood transfusion started after verifying patient identification with second RN Franko. Blood started with pre-transfusion vitals recorded.
--- NOTE | 2020-01-18 15:05 | NUR ---
NURSE NOTES:Blood transfusion rate increased from 70ML/HR to 125ML/HR patient tolerating well, vitals remain in range. No spike in temperature or adverse reaction noted.
--- NOTE | 2020-01-18 15:37 | NUR ---
NURSE NOTES:left a message for Dr Ken and Dr Mccauley as patient is having gross hematuria before transferring to [facility], RN also endorsed that patient had a large bloody bowel movement this morning, wanted to ensure that the MD's is aware of the patient status.
--- NOTE | 2020-01-18 15:40 | NUR ---
NURSE NOTES:Patient's sister Silas called for an update on her sisters status, informed her that patient is receiving another unit of blood and informed her that she is now in [facility] after transferring here this morning from ICU. Patient wanted to pass along a message stating she is thinking of Diya and that she sends her love.
--- NOTE | 2020-01-18 16:38 | NUR ---
CASE MANAGEMENT:REVIEW SI;SEPSIS. ANEMIA. RESP FAILURE~TRACH/VENT DEPENDENT. AC/CHR RENAL FAILURE 99.9 140 27 92/54 92% TRACH/VENT FIO2 45% WBC 27.6 RBC 2.40 H/H 6.8/19.4 NA 132 ANION GAP 21 BUN 158 CR 5.1 UR ACID 7.9 MAG 3.4 ALP 183 CRP 26.9 BNP >98350 ALB 2.2 IS;TRANSFUSED 1 UNIT PRBC AMIODARONE GTT MEROPENEM IV Q24 PROTONIX IV Q12 LIPITOR GT QD DOWN GRADED FROM ICU TO [facility] STATUS DCP;FROM [facility]
--- NOTE | 2020-01-18 17:05 | Infectious Diseases Prog Note ---
Assessment/Plan 49yo F with: AF Sepsis Leukocytosis ; increasing Hypoxia on vent Pneumonia c/b L pleural effusion (recurrent, prior determined to be transudative) Volume overload, BNP >35,0000, likely 2/2 progressive CKD --> ESRD ?Pancreatitis, Lipase >2000 Acute anemia to 5s CONS bacteremia, ?contaminant Aflutter w/ RVR 01/13 BCx 2/2 +S. epi COVID PCR p Flu neg CXR: Large left pleural effusion. Bilateral interstitial and airspace infiltrates versus edema MRSA nares neg 01/16 BCx p JAVIER on CKD On previous admission Sep-Oct 2019 required HD for short period Going to start HD this admission again R/o COVID 01/14 COVID PCR neg 12/29 neg at SNF per report H/o UTI 11/27 u/a wbc 30-40, nit neg, leuk +3; ucx ESBL P. mirablis, ESBL M. morganii 09/15/19 u/a wbc tnct, nit neg, leuk +3; ucx >100k MDR P. stuarti (S Ceftriaxone, Meropenem) 10/07 u/a wbc tnct, nit neg, leuk ; ucx >100k VRE 10/15/19 u/a wbc tnct; ucx >100k ESBL P. stuarti (S ertapenem, aztreonam) H/o transudative pleural effusion 11/28 Sp Thora (w: 169, PMN: 2%, L: 49% , LDH: 57, prot 2.5); cx Neg H/o PNA 10/15/19 Resp cx ESBL P. mirabilis, MDR P.a. (S only to Gent) 09/22 Resp cx + MDR PsA (S-gent; I-colistin; R-levofloxacin, Zosyn, angelo) 09/16/19 Sp cx ESBL P. mirablis H/o PPM site (pocket) infection and pocket abscess 2ry to S. epi-11/2018, sp >6weeks IV vancomycin 11/27 SP ABBIE: no evidence for vegetation on any of the valves 11/26/18 SP PPM removal: OR findings:The fibrous capsule enclosing the generator was then opened and there was a [id number] amount of yellowish fluid drainage. The generator was then removed.Atrial and ventricular leads were detached. The necrotic tissue of the pocket was then removed and the pocket was flushed with an antibiotic solution. Capsule, wound tissue and lead tip cx: Neg 2d echo: no vegetation seen US chest: 4.6 x 3.4 x 0.9 cm hypoechoic/anechoic area overlying left chest pacemaker power pack. This could represent either a discrete fluid collection or a focal area of very edematous tissue. Infected fluid pocket also possible. 11/18 Bcx 3/4 S. epi; 11/20 Bcx neg; 11/24 Bcx Neg; 11/27 Bcx Neg CAD s/p CABG GERD/gastritis Afib HTN Dysphagia sp GT Aortic dissection s/p repair 2018 S/p PPM Parkinson's Disease Schizophrenia Anxiety COPD Chronic resp failure s/p trach Hx of tracheal bleeding NH resident ([facility]) VRE and MRSA colonized Plan: Cont meropenem #2 given worsening WBc and h/o resistant organisms Cont vanco #4 given CONS bacteremia, f/u repeat BCx Repeat BCx today Recommend volume removal given BNP >35k, agree with HD initiation ?Pancreatitis, lipase >2000, appreciate GI input F/u BCx 01/14, 01/16 F/u COVID PCR 01/14 01/16 SP Zosyn #2 01/14 SP dex 10mg in ED 12/10 SP IV Gentamycin #10 12/07 SP Meropenem #10 12/01 SP IV Vancomycin #5 11/28 Sp Cefepime #2 and IV Gentamycin x1 Monitor CBC/CMP Monitor temp curve, hemodynamics Monitor resp status sp cx, Cdiff, CXR D/w RN Thank you for this consult. [facility] will continue to follow. Subjective Allergies: Coded Allergies: No Known Allergies (Unverified , 10/10/17) afebrile wbc increased Objective Last 24 Hour Vital Signs Date Time Temp Pulse Resp B/P (MAP) Pulse Ox O2 Delivery O2 Flow Rate FiO2 01/18/20 16:00 98.1 59 18 129/61 (83) 95 01/18/20 16:00 66 01/18/20 15:59 Mechanical Ventilator Mechanical Ventilator 01/18/20 12:00 Mechanical Ventilator Mechanical Ventilator 01/18/20 12:00 69 01/18/20 12:00 99.9 66 21 103/51 (68) 92 01/18/20 11:02 69 20 45 01/18/20 10:00 73 21 120/69 (86) 92 01/18/20 09:00 73 22 105/48 (67) 99 01/18/20 08:00 Mechanical Ventilator Mechanical Ventilator 01/18/20 08:00 99.2 135 20 92/54 (67) 99 01/18/20 07:54 134 01/18/20 07:02 75 20 45 01/18/20 07:00 136 23 107/52 (70) 100 01/18/20 06:31 133 25 01/18/20 06:00 134 25 104/77 (86) 99 01/18/20 05:00 133 23 127/50 (75) 100 01/18/20 04:00 99.1 132 25 138/53 (81) 100 01/18/20 04:00 Mechanical Ventilator Mechanical Ventilator 01/18/20 03:19 131 26 50 01/18/20 03:05 140 01/18/20 03:00 130 27 158/77 (104) 100 01/18/20 02:00 134 27 140/64 (89) 93 01/18/20 01:00 136 27 144/57 (86) 93 01/18/20 00:30 137 27 136/55 (82) 94 01/18/20 00:15 136 27 150/59 (89) 94 01/18/20 00:00 99.0 137 27 119/56 (77) 94 01/18/20 00:00 Mechanical Ventilator 01/18/20 00:00 140 01/17/20 23:45 138 28 133/62 (85) 94 01/17/20 23:30 138 26 120/59 (79) 96 01/17/20 23:00 137 26 150/76 (100) 100 01/17/20 22:50 137 26 50 01/17/20 22:30 139 28 139/80 (99) 93 01/17/20 22:00 139 26 140/61 (87) 97 01/17/20 21:30 140 28 126/71 (89) 97 01/17/20 21:00 139 29 117/87 (97) 94 01/17/20 20:30 140 28 105/65 (78) 95 01/17/20 20:00 141 01/17/20 20:00 Mechanical Ventilator 01/17/20 20:00 99.0 141 23 131/56 (81) 97 01/17/20 20:00 40 01/17/20 19:54 140 26 50 01/17/20 19:30 145 28 124/65 (84) 94 01/17/20 19:00 145 28 132/74 (93) 95 01/17/20 18:00 145 30 123/60 (81) 93 01/17/20 17:00 147 28 127/59 (81) 97 Height (Feet): 5 Height (Inches): 6.00 Weight (Pounds): 150 Gen: NAD HEENT: NCAT, +trach Pulm: BL chest rise on vent Abd: Non-distended, +PEG Ext: No c/c/e Skin: No visible rashes Neuro: Awake Microbiology Date/Time Source Procedure Growth Status 01/15/20 19:30 Rectum VRE Culture - Final Enterococcus Faecalis - Vre Enterococcus Faecium - Vre Complete 01/15/20 19:30 Nasal Nares MRSA Culture - Final NO METHICILLIN RESISTANT STAPH AUREUS... Complete 01/15/20 18:14 Rectum - Final NO CARBAPENEM-RESISTANT ENTEROBACTERI... Complete 01/15/20 18:14 Nasal Nares - Final Complete 01/15/20 18:14 Nasal Nares - Final Complete 01/15/20 18:14 Nasopharynx Coronavirus COVID-19 PCR (ROSITA) - Final Complete 01/15/20 17:48 Blood Blood Culture - Final Staphylococcus Epidermidis Complete 01/15/20 17:38 Blood Blood Culture - Final Staphylococcus Epidermidis Complete Laboratory Tests Test 01/18/20 04:00 01/18/20 06:20 01/18/20 06:42 01/18/20 13:07 White Blood Count 27.6 K/UL (4.8-10.8) *H Red Blood Count 2.40 M/UL (4.20-5.40) L Hemoglobin 6.8 G/DL (12.0-16.0) *L Hematocrit 19.4 % (37.0-47.0) L Mean Corpuscular Volume 81 FL (80-99) Mean Corpuscular Hemoglobin 28.5 PG (27.0-31.0) Mean Corpuscular Hemoglobin Concent 35.3 G/DL (32.0-36.0) Red Cell Distribution Width 14.7 % (11.6-14.8) Platelet Count 239 K/UL (150-450) Mean Platelet Volume 5.2 FL (6.5-10.1) L Neutrophils (%) (Auto) % (45.0-75.0) Lymphocytes (%) (Auto) % (20.0-45.0) Monocytes (%) (Auto) % (1.0-10.0) Eosinophils (%) (Auto) % (0.0-3.0) Basophils (%) (Auto) % (0.0-2.0) Differential Total Cells Counted 100 Neutrophils % (Manual) 82 % (45-75) H Lymphocytes % (Manual) 11 % (20-45) L Monocytes % (Manual) 6 % (1-10) Eosinophils % (Manual) 0 % (0-3) Basophils % (Manual) 0 % (0-2) Band Neutrophils 1 % (0-8) Platelet Estimate Adequate Platelet Morphology Normal Hypochromasia 1+ Anisocytosis 1+ Sodium Level 132 MMOL/L (136-145) L Potassium Level 4.2 MMOL/L (3.5-5.1) Chloride Level 93 MMOL/L (98-107) L Carbon Dioxide Level 18 MMOL/L (21-32) L Anion Gap 21 mmol/L (5-15) H Blood Urea Nitrogen 158 mg/dL (7-18) H Creatinine 5.1 MG/DL (0.55-1.30) H Estimat Glomerular Filtration Rate 9.1 mL/min (>60) Glucose Level 99 MG/DL (74-106) Uric Acid 7.9 MG/DL (2.6-7.2) H Calcium Level 8.7 MG/DL (8.5-10.1) Phosphorus Level 7.7 MG/DL (2.5-4.9) H Magnesium Level 3.4 MG/DL (1.8-2.4) H Total Bilirubin 0.5 MG/DL (0.2-1.0) Aspartate Amino Transf (AST/SGOT) 24 U/L (15-37) Alanine Aminotransferase (ALT/SGPT) 9 U/L (12-78) L Alkaline Phosphatase 183 U/L (46-116) H Troponin I 1.061 ng/mL (0.000-0.056) C-Reactive Protein, Quantitative 26.9 mg/dL (0.00-0.90) H Pro-B-Type Natriuretic Peptide > 60839 pg/mL (0-125) H Total Protein 6.6 G/DL (6.4-8.2) Albumin 2.2 G/DL (3.4-5.0) L Globulin 4.4 g/dL Albumin/Globulin Ratio 0.5 (1.0-2.7) L Amylase Level 309 U/L (25-115) H Lipase 1357 U/L (73-393) H POC Whole Blood Glucose Pending Pending 108 MG/DL (74-106) H Current Medications Medications (Trade) Dose Ordered Sig/Penny Route PRN Reason Start Time Stop Time Status Last Admin Dose Admin Amiodarone HCl 900 mg/Dextrose 500 ml @ 0 mls/hr Q24H IV 01/17/20 20:00 02/16/20 19:59 01/17/20 20:14 Atorvastatin Calcium (Lipitor) 10 mg BEDTIME GT 01/17/20 21:00 04/16/20 20:59 01/17/20 20:14 Chlorhexidine Gluconate (Ling-Hex 2%) 1 applic DAILY@2000 TOPIC 01/17/20 20:00 04/16/20 19:59 01/17/20 20:13 Dextrose (Dextrose 50%) 25 ml Q30M PRN IV Hypoglycemia 01/15/20 22:15 04/14/20 22:14 Dextrose (Dextrose 50%) 50 ml Q30M PRN IV Hypoglycemia 01/15/20 22:15 04/14/20 22:14 Meropenem 500 mg/ Sodium Chloride 55 ml @ 110 mls/hr Q24H IVPB 01/17/20 10:30 01/22/20 10:29 01/18/20 09:40 Metoclopramide HCl (Reglan) 5 mg Q6H PRN IVP Nausea & Vomiting 01/15/20 22:15 02/14/20 22:14 Pantoprazole (Protonix) 40 mg EVERY 12 HOURS IV 01/16/20 09:00 02/15/20 08:59 01/18/20 08:30 Vancomycin HCl (Vanco pharmacy to dose) 1 ea DAILY PRN MISC Per rx protocol 01/15/20 22:15 02/14/20 22:14 Zinc Oxide (Zinc Oxide) 1 applic TIDPRN PRN TOPIC diogenes GT 01/16/20 13:15 04/15/20 13:14 01/16/20 14:55 Doreen Nino M.D. Jan 18, 2020 17:05
--- NOTE | 2020-01-18 17:52 | NUR ---
NURSE NOTES:Blood transfusion finished, patient tolerated well. no adverse reaction noted. Vitals post transfusion stable as follows: Temperature 97.9, BP 130/84, HR 57, 02 saturation 100%.
--- NOTE | 2020-01-18 19:10 | NUR ---
NURSE NOTES: Received report from ERASMO Herrera. Patient asleep in bed, afebrile and no respiratory distress noted. 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 Pt is arousable, opens eyes and tracks. no other s/sx related to Sb noted. BP is wnl. trache to vent S7, AC 20, TV 500, FiO2 40% and PEEP 8 saturating at 97-99%. On nephro at 20ml/hr via GT infusing well, no residual and sediments noted. With Right AC 20g and left Wrist 22 G IV lines intact, patent and asymptomatic. On Amiodarone drip at 0.5mg/min for Hx of Aflutter/ST. With left femoral arden catheter intact and asymptomatic. Dressing was changed and now clean and dry. with FC to urine bag draining hematuria. MD is aware. Needs were attended. Bed rails are up and wheels are locked. Continue to monitor the patient and will inform Cardio MD regarding SB. Addendum: 01/19/20 at 0555 by SHEBA Alicia RN 01/19/2020 at 1910 CORRECTION PEEP 5
--- NOTE | 2020-01-18 19:40 | NUR ---
NURSE HAND-OFF REPORT: Important Events on Shift: Patient Status: guarded Diet: Nepro@20ML/HR Pending Orders: Stool OB Pending Results/Labs:Blood cultures Pending MD notification: Latest Vital Signs: Temperature 98.1 , Pulse 66 , B/P 129 /61 , Respiratory Rate 18 , O2 SAT 95 , Mechanical Ventilator, O2 Flow Rate . Vital Sign Comment: EKG Rhythm: Sinus Rhythm Rhythm change?: N MD Notified?: Gabriel STARK,CHARITY HATFIELD Response: Order Received& Read Back Latest Chavarria Fall Score: 70 Fall Risk: High Risk Safety Measures: Call light Within Reach, Bed Alarm Zone 2, Side Rails Side Rails x2, Bed position Low and Locked. Fall Precautions: Yellow Socks Door Sign Patient Fall Education Report given to ERASMO SCRUGGS.
--- NOTE | 2020-01-18 20:00 | NUR ---
NURSE NOTES: Placed a call and left a voicemail to Dr worthington regarding patients HR 46-48. Awaiting for a call back. BP 117/60, Pt arousable on tactile stimulation. eyes open and tracks. Continue to monitor the patient.
--- NOTE | 2020-01-18 20:05 | NUR ---
NURSE NOTES: Placed a call and left a voicemail to Dr Willams regarding patient's HR 38-40bpm. Awaiting for response. BP is WNL. Still arousable and opens eyes. Charge nurse made aware. Continue to monitor
--- NOTE | 2020-01-18 20:39 | NUR ---
NURSE NOTES: Received a call From Dr Willams. D/c Amiodarone drip and increase GTF feeding to 35cc/hr. Orders noted and carried out. Will inform Dr Willams for any other changes. Continue to monitor the patient
--- NOTE | 2020-01-18 20:47 | General Progress Note ---
Subjective Constitutional: Reports: no symptoms, weakness HEENT: Reports: no symptoms Cardiovascular: Reports: no symptoms Respiratory: Reports: no symptoms Gastrointestinal/Abdominal: Reports: no symptoms Genitourinary: Reports: no symptoms Neurologic/Psychiatric: Reports: emotional problems Endocrine: Reports: no symptoms Hematologic/Lymphatic: Reports: no symptoms Allergies: Coded Allergies: No Known Allergies (Unverified , 10/10/17) Objective Last 24 Hour Vital Signs Date Time Temp Pulse Resp B/P (MAP) Pulse Ox O2 Delivery O2 Flow Rate FiO2 01/18/20 19:14 88 20 45 01/18/20 16:00 98.1 59 18 129/61 (83) 95 01/18/20 16:00 66 01/18/20 15:59 Mechanical Ventilator Mechanical Ventilator 01/18/20 15:09 65 21 45 01/18/20 12:00 Mechanical Ventilator Mechanical Ventilator 01/18/20 12:00 69 01/18/20 12:00 99.9 66 21 103/51 (68) 92 01/18/20 11:02 69 20 45 01/18/20 10:00 73 21 120/69 (86) 92 01/18/20 09:00 73 22 105/48 (67) 99 01/18/20 08:00 Mechanical Ventilator Mechanical Ventilator 01/18/20 08:00 99.2 135 20 92/54 (67) 99 01/18/20 07:54 134 01/18/20 07:02 75 20 45 01/18/20 07:00 136 23 107/52 (70) 100 01/18/20 06:31 133 25 01/18/20 06:00 134 25 104/77 (86) 99 01/18/20 05:00 133 23 127/50 (75) 100 01/18/20 04:00 99.1 132 25 138/53 (81) 100 01/18/20 04:00 Mechanical Ventilator Mechanical Ventilator 01/18/20 03:19 131 26 50 01/18/20 03:05 140 01/18/20 03:00 130 27 158/77 (104) 100 01/18/20 02:00 134 27 140/64 (89) 93 01/18/20 01:00 136 27 144/57 (86) 93 01/18/20 00:30 137 27 136/55 (82) 94 01/18/20 00:15 136 27 150/59 (89) 94 01/18/20 00:00 99.0 137 27 119/56 (77) 94 01/18/20 00:00 Mechanical Ventilator 01/18/20 00:00 140 01/17/20 23:45 138 28 133/62 (85) 94 01/17/20 23:30 138 26 120/59 (79) 96 01/17/20 23:00 137 26 150/76 (100) 100 01/17/20 22:50 137 26 50 01/17/20 22:30 139 28 139/80 (99) 93 01/17/20 22:00 139 26 140/61 (87) 97 01/17/20 21:30 140 28 126/71 (89) 97 01/17/20 21:00 139 29 117/87 (97) 94 Intake and Output 01/17/20 01/18/20 19:00 07:00 Intake Total 95.625 ml 592.777 ml Output Total 75 ml 55 ml Balance 20.625 ml 537.777 ml Free Water 30 ml IV Total 35.625 ml 262.777 ml Tube Feeding 60 ml 240 ml Other 60 ml Output Urine Total 75 ml 55 ml Hemodialysis UF 0 ml Laboratory Tests 01/18/20 04:00: White Blood Count 27.6*H, Red Blood Count 2.40L, Hemoglobin 6.8*L, Hematocrit 19.4L, Mean Corpuscular Volume 81, Mean Corpuscular Hemoglobin 28.5, Mean Corpuscular Hemoglobin Concent 35.3, Red Cell Distribution Width 14.7, Platelet Count 239, Mean Platelet Volume 5.2L, Neutrophils (%) (Auto) , Lymphocytes (%) (Auto) , Monocytes (%) (Auto) , Eosinophils (%) (Auto) , Basophils (%) (Auto) , Differential Total Cells Counted 100, Neutrophils % (Manual) 82H, Lymphocytes % (Manual) 11L, Monocytes % (Manual) 6, Eosinophils % (Manual) 0, Basophils % (Manual) 0, Band Neutrophils 1, Platelet Estimate Adequate, Platelet Morphology Normal, Hypochromasia 1+, Anisocytosis 1+, Sodium Level 132L, Potassium Level 4.2, Chloride Level 93L, Carbon Dioxide Level 18L, Anion Gap 21H, Blood Urea Nitrogen 158H, Creatinine 5.1H, Estimat Glomerular Filtration Rate 9.1, Glucose Level 99, Uric Acid 7.9H, Calcium Level 8.7, Phosphorus Level 7.7H, Magnesium Level 3.4H, Total Bilirubin 0.5, Aspartate Amino Transf (AST/SGOT) 24, Alanine Aminotransferase (ALT/SGPT) 9L, Alkaline Phosphatase 183H, Troponin I 1.061H, C- Reactive Protein, Quantitative 26.9H, Pro-B-Type Natriuretic Peptide > 48482J, Total Protein 6.6, Albumin 2.2L, Globulin 4.4, Albumin/Globulin Ratio 0.5L, Amylase Level 309H, Lipase 1357H 01/18/20 06:20: POC Whole Blood Glucose [Pending] 01/18/20 06:42: POC Whole Blood Glucose [Pending] 01/18/20 13:07: POC Whole Blood Glucose 108H 01/18/20 18:43: POC Whole Blood Glucose 108H Height (Feet): 5 Height (Inches): 6.00 Weight (Pounds): 150 General Appearance: WD/WN, alert, lethargic, mild distress EENT: normal ENT inspection Neck: supple Cardiovascular: tachycardia, arrhythmia, other - On amiodarone drip for atrial flutter Respiratory/Chest: no respiratory distress, no accessory muscle use, rhonchi - bilaterally Abdomen: normal bowel sounds, non tender, soft, no organomegaly, no mass Extremities: non-tender Neurologic: alert, responsive Assessment/Plan Status Narrative Patient condition is markedly improved he is awake alert afebrile hemodynamically stable and there is marked improvement in her electrolytes as well in the past she is easily tearful however she seemed to be more energetic and longer attention span today than yesterday continue with the daily dialysis and we will continue with the Vanco meropenem management of antibiotic repeat laboratory tests will be done in a.m. Lucas Canales MD, MD Jan 18, 2020 20:47
[2020-01-18] MEDS: Dyna-Hex 2% Top Sol 2oz TOPIC SCH (20:55)
--- NOTE | 2020-01-18 23:06 | Surgery Progress Note ---
Surgery Progress Note Subjective Procedure Performed Left femoral temporary hemodialysis catheter insertion Symptoms: improved Objective Last 24 Hour Vital Signs Date Time Temp Pulse Resp B/P (MAP) Pulse Ox O2 Delivery O2 Flow Rate FiO2 01/18/20 22:40 72 22 40 01/18/20 20:00 98.1 51 18 117/60 (79) 95 01/18/20 20:00 Mechanical Ventilator Mechanical Ventilator 01/18/20 20:00 40 01/18/20 19:35 42 01/18/20 19:22 52 01/18/20 19:14 88 20 45 01/18/20 16:00 98.1 59 18 129/61 (83) 95 01/18/20 16:00 66 01/18/20 15:59 Mechanical Ventilator Mechanical Ventilator 01/18/20 15:09 65 21 45 01/18/20 12:00 Mechanical Ventilator Mechanical Ventilator 01/18/20 12:00 69 01/18/20 12:00 99.9 66 21 103/51 (68) 92 01/18/20 11:02 69 20 45 01/18/20 10:00 73 21 120/69 (86) 92 01/18/20 09:00 73 22 105/48 (67) 99 01/18/20 08:00 Mechanical Ventilator Mechanical Ventilator 01/18/20 08:00 99.2 135 20 92/54 (67) 99 01/18/20 07:54 134 01/18/20 07:02 75 20 45 01/18/20 07:00 136 23 107/52 (70) 100 01/18/20 06:31 133 25 01/18/20 06:00 134 25 104/77 (86) 99 01/18/20 05:00 133 23 127/50 (75) 100 01/18/20 04:00 99.1 132 25 138/53 (81) 100 01/18/20 04:00 Mechanical Ventilator Mechanical Ventilator 01/18/20 03:19 131 26 50 01/18/20 03:05 140 01/18/20 03:00 130 27 158/77 (104) 100 01/18/20 02:00 134 27 140/64 (89) 93 01/18/20 01:00 136 27 144/57 (86) 93 01/18/20 00:30 137 27 136/55 (82) 94 01/18/20 00:15 136 27 150/59 (89) 94 01/18/20 00:00 99.0 137 27 119/56 (77) 94 01/18/20 00:00 Mechanical Ventilator 01/18/20 00:00 140 01/17/20 23:45 138 28 133/62 (85) 94 01/17/20 23:30 138 26 120/59 (79) 96 I&O Intake and Output 01/17/20 01/18/20 19:00 07:00 Intake Total 95.625 ml 592.777 ml Output Total 75 ml 55 ml Balance 20.625 ml 537.777 ml Free Water 30 ml IV Total 35.625 ml 262.777 ml Tube Feeding 60 ml 240 ml Other 60 ml Output Urine Total 75 ml 55 ml Hemodialysis UF 0 ml Dressing: saturated Cardiovascular: RSR Respiratory: decreased breath sounds Abdomen: non-tender, present bowel sounds Extremities: edema, no cyanosis Laboratory Tests Test 01/18/20 04:00 01/18/20 06:20 01/18/20 06:42 01/18/20 13:07 White Blood Count 27.6 K/UL (4.8-10.8) *H Red Blood Count 2.40 M/UL (4.20-5.40) L Hemoglobin 6.8 G/DL (12.0-16.0) *L Hematocrit 19.4 % (37.0-47.0) L Mean Corpuscular Volume 81 FL (80-99) Mean Corpuscular Hemoglobin 28.5 PG (27.0-31.0) Mean Corpuscular Hemoglobin Concent 35.3 G/DL (32.0-36.0) Red Cell Distribution Width 14.7 % (11.6-14.8) Platelet Count 239 K/UL (150-450) Mean Platelet Volume 5.2 FL (6.5-10.1) L Neutrophils (%) (Auto) % (45.0-75.0) Lymphocytes (%) (Auto) % (20.0-45.0) Monocytes (%) (Auto) % (1.0-10.0) Eosinophils (%) (Auto) % (0.0-3.0) Basophils (%) (Auto) % (0.0-2.0) Differential Total Cells Counted 100 Neutrophils % (Manual) 82 % (45-75) H Lymphocytes % (Manual) 11 % (20-45) L Monocytes % (Manual) 6 % (1-10) Eosinophils % (Manual) 0 % (0-3) Basophils % (Manual) 0 % (0-2) Band Neutrophils 1 % (0-8) Platelet Estimate Adequate Platelet Morphology Normal Hypochromasia 1+ Anisocytosis 1+ Sodium Level 132 MMOL/L (136-145) L Potassium Level 4.2 MMOL/L (3.5-5.1) Chloride Level 93 MMOL/L (98-107) L Carbon Dioxide Level 18 MMOL/L (21-32) L Anion Gap 21 mmol/L (5-15) H Blood Urea Nitrogen 158 mg/dL (7-18) H Creatinine 5.1 MG/DL (0.55-1.30) H Estimat Glomerular Filtration Rate 9.1 mL/min (>60) Glucose Level 99 MG/DL (74-106) Uric Acid 7.9 MG/DL (2.6-7.2) H Calcium Level 8.7 MG/DL (8.5-10.1) Phosphorus Level 7.7 MG/DL (2.5-4.9) H Magnesium Level 3.4 MG/DL (1.8-2.4) H Total Bilirubin 0.5 MG/DL (0.2-1.0) Aspartate Amino Transf (AST/SGOT) 24 U/L (15-37) Alanine Aminotransferase (ALT/SGPT) 9 U/L (12-78) L Alkaline Phosphatase 183 U/L (46-116) H Troponin I 1.061 ng/mL (0.000-0.056) C-Reactive Protein, Quantitative 26.9 mg/dL (0.00-0.90) H Pro-B-Type Natriuretic Peptide > 34154 pg/mL (0-125) H Total Protein 6.6 G/DL (6.4-8.2) Albumin 2.2 G/DL (3.4-5.0) L Globulin 4.4 g/dL Albumin/Globulin Ratio 0.5 (1.0-2.7) L Amylase Level 309 U/L (25-115) H Lipase 1357 U/L (73-393) H POC Whole Blood Glucose Pending Pending 108 MG/DL (74-106) H Test 01/18/20 18:43 POC Whole Blood Glucose 108 MG/DL (74-106) H Plan Problems: (1) Dehydration (2) Acidosis (3) Depression (4) Pleural effusion (5) Respiratory failure (6) Schizophrenia (7) Hypoxia (8) UTI (urinary tract infection) (9) Pneumonia (10) NSTEMI (non-ST elevated myocardial infarction) (11) Tracheostomy in place (12) Feeding by G-tube (13) JAVIER (acute kidney injury) (14) Acute encephalopathy (15) Sacral decubitus ulcer, stage IV (16) Chronic respiratory failure (17) Ascites (18) Bacteremia (19) Hypernatremia (20) Proteinuria (21) Electrolyte imbalance (22) ACS (acute coronary syndrome) (23) Aortic dissection, thoracic (24) Respiratory failure, acute and chronic (25) JAVIER (acute kidney injury) (26) Abrasion of lip, initial encounter (27) COPD with exacerbation (28) Elevated alkaline phosphatase level (29) Renal failure (ARF), acute on chronic (30) HCAP (healthcare-associated pneumonia) (31) GT CLOGGED (32) Elevated lipase (33) Pancreatitis (34) Elevated troponin (35) Hypokalemia (36) Hyponatremia (37) Anemia (38) Renal failure (39) ARF (acute renal failure) (40) Pacemaker (41) Sepsis Assessment & Plan: leukocytosis anemia on HD renal insufficiency wounds addressed pt presented on admission with Tracheostomy ,GT and Multiple Pressure Injuries. Skin assessment of skin under tracheal collar without evidence of skin breakdown. Peristomal GT site excoriated.Moderate amt of dark red sanguineous exudate. Full Thickness Sacral Pressure Injury with undermined borders (L)9 cm x (W)12cm x (D)1.8cm,Undermining clockwise8-9 by 2.2cm @1o'clock,undermining clockwise 1-4 by 1.9 @ 9'oclock Scattered necrotic tissue within wound bed. Borders are loose and necrotic with marginal erythema to outer perimeter of wound. NO elevation in skin temp noted periwound. Wound is malodorous. Small amt Brown exudate noted. Resolving Pressure Injury L Ischium(L)1.5cm x (W)1.5cm. Base of wound is 80% pink epithelial with an area that is moist and pink. NO odor or exudate noted. Bilat foot-drop noted. L Heel is boggy with non-blanchable erythema(L)4cm x (W)4cm. R heel is boggy with non-Blanchable erythema(L)5cm x (W)6cm. Tx.Plan: Cleanse sacral wound with Dakin's 0.125% annie. Loosely pack with Dakin's moistened Kerlix(Attention to undermined borders). Apply Moisture Barrier Paste periwound. Cover with Optifoam drsg. Change Daily and PRN. Apply Cavilon Skin Barrier to R and L Hels. Cover each heel with Optifoam drsg. Change every 7 days and prn. Reposition at least every 2hours or as tolerated. Off-load heels with Pillow. APM/JENNIFER MAttress overlay DAILY ESTIMATED NEEDS: Needs based on Critical care, wound, renal dysfunction 56 kg abw 28-33 kcals/kg [id number] total kcals W/ HD (1.5-2.0) g protein/kg 84-112 g total protein Fluid per MD mL/kg . total fluid mLs NUTRITION DIAGNOSIS: * Swallowing difficulty R/T dysphagia, respiratory status as evidenced by vent dep via trach, GT Dep. * Increase kcal and pro needs r/t wound healing, renal dysfunction as evidenced by admitted w/ large, advanced sacral wound, previously stage 4, pending eval, admitted w/ JAVIER, pending HD. CURRENT TF:NPO ENTERAL NUTRITION RECOMMENDATIONS: Nepro @ 40ml/hr x 24 hrs + Prosource 1pkt QD to provide 960ml, 1728kcal, 78g+11g prot, 698ml free water * As medically appropriate, initiate TF on Nepro, rec goal rate fo 40ml/hr x 24 hrs * Add Prosource 1pkt QD to better meet increased protein needs (additional 11g prot) * Water flush per MD/ HOB over 30 degrees ADDITIONAL RECOMMENDATIONS: * Per SNF in NOV 2019: HT=63"/ Rec daily calibrated bedscale wt * Monitor for continuity of HD: non-tunneled cath placement ordered * Monitor lytes and renal fxn for improvement (Na low, K and phos elevated) * Wound care: add Nephrovite x 1, ZnSO4 220mg QD x 10 days Reynaldo BID via PEG (mix w/ 2-4 oz water) * Monitor BG closely for hypoglycemia while NPO (h/o DM, on Nacl 3% to correct hyponatremia, consider accuchecks) (42) Hyponatremia Lane Saavedra Jan 18, 2020 23:06
[2020-01-19] VITALS: BP 141/63
--- NOTE | 2020-01-19 01:00 | NUR ---
NURSE NOTES: Pt stable. HR on 56-57bpm. BP wnl. No discomforts noted. PT asleep in bed. Continue to monitor
--- NOTE | 2020-01-19 02:00 | NUR ---
NURSE NOTES: Pt was given partial bed bath. Gown and linen were changed. Pt toelrated well. HR 54-56. No otehr s/sx ntoed. Cotnineu to monitor the patient.
[2020-01-19 04:00] VITALS: BP 110/52
[2020-01-19 05:54] LABS: HEMATOCRIT 19.2 % (37.0-47.0); MEAN CORPUSCULAR VOLUME 80 FL (80-99); PLATELET COUNT 221 K/UL (150-450); RED BLOOD COUNT 2.39 M/UL (4.20-5.40); RED CELL DISTRIBUTION WIDTH 14.4 % (11.6-14.8)
[2020-01-19 06:32] LABS: ALBUMIN 2.1 G/DL (3.4-5.0); ALBUMIN/GLOBULIN RATIO 0.5 (1.0-2.7); BILIRUBIN,TOTAL 0.5 MG/DL (0.2-1.0); CALCIUM 8.4 MG/DL (8.5-10.1); CREATININE 4.6 MG/DL (0.55-1.30); POTASSIUM 4.1 MMOL/L (3.5-5.1)
[2020-01-19 06:37] LABS: WHITE BLOOD COUNT 29.6 K/UL (4.8-10.8)
[2020-01-19 06:43] LABS: AMYLASE 345 U/L (25-115)
--- NOTE | 2020-01-19 06:43 | Hematology/Onc Progress Note ---
Assessment/Plan Assessment/Plan Assessment and Recs # Leukocytosis, now with pna v other process --> Cxr: : Large left pleural effusion, Bilateral interstitial and airspace infiltrates versus edema --> wbc 16-->26->30 --> ABX zosyn-->angelo/vanc --> ID recs are noted --> smear has been reviewed # Anemia of chronic disease due to underlying chronic medical issues, multifactorial --> Anemia workup has been reviewed, cw acd --> No evidence of hemolysis is noted, peripheral smear has been reviewed. --> Hgb goal >7. Transfuse prn. --> Epogen required in prior --> Medications have been reviewed --> low threshold for gi evaluation in case has occult + --> hgb 7.1-->7.8-->>>5.9-->7.3-->7 --> 1 unit prbc10/17, 2 units 01/15 --> gi eval as needed # Coagulopathy with inr 1.5 --> consider vit k/ffp as needed preprocedure --> labs noted # JAVIER initially >2 --> on ivfs --> per renal # Elevated d-dimer --> venous duplex ordered --> in prior neg # Dysphagia s/p peg --> as per gi # Thoracic aortic dissection --> s/p repair early 2017 # Chronic Resp failure -> s/p trach/vent # Psychiatric history on ativan/haldol # [place] resident # Dvt ppx --> scds The timing of this note does not necessarily reflect the time of the patient was seen. Greatly appreciate consultation. Subjective Allergies: Coded Allergies: No Known Allergies (Unverified , 10/10/17) All Systems: reviewed and negative except above Subjective 01/16 left femoral arden in place, on vent, icu, hgb better 01/18 labs are noted, wbc 30, hgb 7, may require prbc today Objective Objective Current Medications Medications (Trade) Dose Ordered Sig/Penny Route PRN Reason Start Time Stop Time Status Last Admin Dose Admin Atorvastatin Calcium (Lipitor) 10 mg BEDTIME GT 01/17/20 21:00 04/16/20 20:59 01/18/20 20:58 Chlorhexidine Gluconate (Ling-Hex 2%) 1 applic DAILY@1999 TOPIC 01/17/20 20:00 04/16/20 19:59 01/18/20 20:55 Dextrose (Dextrose 50%) 25 ml Q30M PRN IV Hypoglycemia 01/15/20 22:15 04/14/20 22:14 Dextrose (Dextrose 50%) 50 ml Q30M PRN IV Hypoglycemia 01/15/20 22:15 04/14/20 22:14 Meropenem 500 mg/ Sodium Chloride 55 ml @ 110 mls/hr Q24H IVPB 01/17/20 10:30 01/22/20 10:29 01/18/20 09:40 Metoclopramide HCl (Reglan) 5 mg Q6H PRN IVP Nausea & Vomiting 01/15/20 22:15 02/14/20 22:14 Pantoprazole (Protonix) 40 mg EVERY 12 HOURS IV 01/16/20 09:00 02/15/20 08:59 01/18/20 20:59 Vancomycin HCl (Vanco pharmacy to dose) 1 ea DAILY PRN MISC Per rx protocol 01/15/20 22:15 02/14/20 22:14 Zinc Oxide (Zinc Oxide) 1 applic TIDPRN PRN TOPIC diogenes GT 01/16/20 13:15 04/15/20 13:14 01/16/20 14:55 Last 24 Hour Vital Signs Date Time Temp Pulse Resp B/P (MAP) Pulse Ox O2 Delivery O2 Flow Rate FiO2 01/19/20 04:00 97.7 52 18 110/52 (71) 95 01/19/20 04:00 Mechanical Ventilator Mechanical Ventilator 01/19/20 03:37 57 01/19/20 03:08 67 20 40 01/19/20 00:00 Mechanical Ventilator Mechanical Ventilator 01/19/20 00:00 96.6 51 18 141/63 (89) 95 01/18/20 23:43 52 01/18/20 22:40 72 22 40 01/18/20 20:00 98.1 51 18 117/60 (79) 95 01/18/20 20:00 40 01/18/20 20:00 Mechanical Ventilator Mechanical Ventilator 01/18/20 19:35 42 01/18/20 19:22 52 01/18/20 19:14 88 20 45 01/18/20 16:00 98.1 59 18 129/61 (83) 95 01/18/20 16:00 66 01/18/20 15:59 Mechanical Ventilator Mechanical Ventilator 01/18/20 15:09 65 21 45 01/18/20 12:00 Mechanical Ventilator Mechanical Ventilator 01/18/20 12:00 69 01/18/20 12:00 99.9 66 21 103/51 (68) 92 01/18/20 11:02 69 20 45 01/18/20 10:00 73 21 120/69 (86) 92 01/18/20 09:00 73 22 105/48 (67) 99 01/18/20 08:00 Mechanical Ventilator Mechanical Ventilator 01/18/20 08:00 99.2 135 20 92/54 (67) 99 01/18/20 07:54 134 01/18/20 07:02 75 20 45 01/18/20 07:00 136 23 107/52 (70) 100 01/18/20 06:31 133 25 01/18/20 06:00 134 25 104/77 (86) 99 01/18/20 05:00 133 23 127/50 (75) 100 01/18/20 04:00 99.1 132 25 138/53 (81) 100 01/18/20 04:00 Mechanical Ventilator Mechanical Ventilator 01/18/20 03:19 131 26 50 01/18/20 03:05 140 01/18/20 03:00 130 27 158/77 (104) 100 01/18/20 02:00 134 27 140/64 (89) 93 01/18/20 01:00 136 27 144/57 (86) 93 01/18/20 00:30 137 27 136/55 (82) 94 01/18/20 00:15 136 27 150/59 (89) 94 01/18/20 00:00 99.0 137 27 119/56 (77) 94 01/18/20 00:00 Mechanical Ventilator 01/18/20 00:00 140 01/17/20 23:45 138 28 133/62 (85) 94 01/17/20 23:30 138 26 120/59 (79) 96 01/17/20 23:00 137 26 150/76 (100) 100 01/17/20 22:50 137 26 50 01/17/20 22:30 139 28 139/80 (99) 93 01/17/20 22:00 139 26 140/61 (87) 97 01/17/20 21:30 140 28 126/71 (89) 97 01/17/20 21:00 139 29 117/87 (97) 94 01/17/20 20:30 140 28 105/65 (78) 95 01/17/20 20:00 141 01/17/20 20:00 Mechanical Ventilator 01/17/20 20:00 99.0 141 23 131/56 (81) 97 01/17/20 20:00 40 01/17/20 19:54 140 26 50 01/17/20 19:30 145 28 124/65 (84) 94 01/17/20 19:00 145 28 132/74 (93) 95 01/17/20 18:00 145 30 123/60 (81) 93 01/17/20 17:00 147 28 127/59 (81) 97 01/17/20 16:00 146 30 133/66 (88) 98 01/17/20 16:00 99.3 01/17/20 16:00 Mechanical Ventilator 01/17/20 16:00 146 01/17/20 15:17 149 29 40 01/17/20 15:00 148 28 131/61 (84) 94 01/17/20 14:16 149 135/60 01/17/20 14:00 147 22 121/57 (78) 93 01/17/20 13:00 148 23 109/57 (74) 98 01/17/20 12:17 147 124/62 01/17/20 12:00 Mechanical Ventilator 01/17/20 12:00 146 01/17/20 12:00 144 21 121/59 (79) 98 01/17/20 12:00 99.0 01/17/20 11:33 145 24 40 01/17/20 11:15 148 01/17/20 11:00 147 23 120/58 (78) 98 01/17/20 10:15 148 25 128/56 (80) 95 01/17/20 10:00 100 21 144/52 (82) 98 01/17/20 09:00 102 22 141/58 (85) 96 01/17/20 08:00 103 01/17/20 08:00 99.1 105 21 146/59 (88) 96 01/17/20 08:00 Mechanical Ventilator 01/17/20 07:30 104 24 144/56 (85) 95 01/17/20 07:18 104 22 40 01/17/20 07:00 106 21 140/66 (90) 97 Intake and Output 01/18/20 01/19/20 19:00 07:00 Intake Total 470 ml 300 ml Output Total 115 ml Balance 355 ml 300 ml Tube Feeding 220 ml 250 ml Blood Product 250 ml 50 ml Output Urine Total 115 ml # Bowel Movements 1 1 Labs Test 01/16/20 08:20 01/16/20 09:57 01/16/20 11:30 01/16/20 14:40 Sodium Level 113 MMOL/L (136-145) Potassium Level 5.2 MMOL/L (3.5-5.1) Chloride Level 77 MMOL/L (98-107) Carbon Dioxide Level 13 MMOL/L (21-32) Anion Gap 24 mmol/L (5-15) Blood Urea Nitrogen 230 mg/dL (7-18) Creatinine 7.0 MG/DL (0.55-1.30) Estimat Glomerular Filtration Rate 6.3 mL/min (>60) Glucose Level 94 MG/DL (74-106) Osmolality 330 mOsm/kg (297-317) Uric Acid 8.9 MG/DL (2.6-7.2) Calcium Level 9.7 MG/DL (8.5-10.1) Phosphorus Level 9.2 MG/DL (2.5-4.9) Magnesium Level 3.9 MG/DL (1.8-2.4) Iron Level 51 ug/dL (50-175) Total Iron Binding Capacity 211 ug/dL (250-450) Percent Iron Saturation 24 % (15-50) Unsaturated Iron Binding 160 ug/dL (112-346) Total Bilirubin 0.5 MG/DL (0.2-1.0) Aspartate Amino Transf (AST/SGOT) 20 U/L (15-37) Alanine Aminotransferase (ALT/SGPT) 11 U/L (12-78) Alkaline Phosphatase 203 U/L (46-116) Total Protein 6.7 G/DL (6.4-8.2) Albumin 2.2 G/DL (3.4-5.0) Globulin 4.5 g/dL Albumin/Globulin Ratio 0.5 (1.0-2.7) Triglycerides Level 58 MG/DL (30-150) Cholesterol Level 58 MG/DL (< 200) LDL Cholesterol 39 mg/dL (<100) HDL Cholesterol 11 MG/DL (40-60) Cholesterol/HDL Ratio 5.3 (3.3-4.4) Vitamin B12 Level 1917 PG/ML (193-986) Folate 23.3 NG/ML (8.6-58.9) Thyroid Stimulating Hormone (TSH) 0.640 uiU/mL (0.358-3.740) Arterial Blood pH 7.280 (7.350-7.450) 7.237 (7.350-7.450) Arterial Blood Partial Pressure CO2 24.3 mmHg (35.0-45.0) 28.4 mmHg (35.0-45.0) Arterial Blood Partial Pressure O2 80.1 mmHg (75.0-100.0) 168.6 mmHg (75.0-100.0) Arterial Blood HCO3 11.2 mmol/L (22.0-26.0) 11.8 mmol/L (22.0-26.0) Arterial Blood Oxygen Saturation 94.4 % (95-100) 99.2 % (95-100) Arterial Blood Base Excess -14.3 (-2-2) -14.3 (-2-2) Rojas Test Positive Positive Urine Osmolality 304 mOsm/kg (429-449) Urine Random Sodium 152 mmol/L (20-110) Test 01/17/20 04:10 01/17/20 11:48 01/18/20 04:00 01/18/20 06:20 White Blood Count 25.9 K/UL (4.8-10.8) 27.6 K/UL (4.8-10.8) Red Blood Count 2.60 M/UL (4.20-5.40) 2.40 M/UL (4.20-5.40) Hemoglobin 7.3 G/DL (12.0-16.0) 6.8 G/DL (12.0-16.0) Hematocrit 20.0 % (37.0-47.0) 19.4 % (37.0-47.0) Mean Corpuscular Volume 77 FL (80-99) 81 FL (80-99) Mean Corpuscular Hemoglobin 28.0 PG (27.0-31.0) 28.5 PG (27.0-31.0) Mean Corpuscular Hemoglobin Concent 36.4 G/DL (32.0-36.0) 35.3 G/DL (32.0-36.0) Red Cell Distribution Width 14.7 % (11.6-14.8) 14.7 % (11.6-14.8) Platelet Count 294 K/UL (150-450) 239 K/UL (150-450) Mean Platelet Volume 4.6 FL (6.5-10.1) 5.2 FL (6.5-10.1) Neutrophils (%) (Auto) % (45.0-75.0) % (45.0-75.0) Lymphocytes (%) (Auto) % (20.0-45.0) % (20.0-45.0) Monocytes (%) (Auto) % (1.0-10.0) % (1.0-10.0) Eosinophils (%) (Auto) % (0.0-3.0) % (0.0-3.0) Basophils (%) (Auto) % (0.0-2.0) % (0.0-2.0) Differential Total Cells Counted 100 100 Neutrophils % (Manual) 90 % (45-75) 82 % (45-75) Lymphocytes % (Manual) 6 % (20-45) 11 % (20-45) Monocytes % (Manual) 3 % (1-10) 6 % (1-10) Eosinophils % (Manual) 1 % (0-3) 0 % (0-3) Basophils % (Manual) 0 % (0-2) 0 % (0-2) Band Neutrophils 0 % (0-8) 1 % (0-8) Platelet Estimate Adequate Adequate Platelet Morphology Normal Normal Hypochromasia 2+ 1+ Anisocytosis 2+ 1+ Microcytosis 2+ Prothrombin Time 14.3 SEC (9.30-11.50) Prothromb Time International Ratio 1.3 (0.9-1.1) Sodium Level 130 MMOL/L (136-145) 132 MMOL/L (136-145) Potassium Level 3.7 MMOL/L (3.5-5.1) 4.2 MMOL/L (3.5-5.1) Chloride Level 89 MMOL/L (98-107) 93 MMOL/L (98-107) Carbon Dioxide Level 20 MMOL/L (21-32) 18 MMOL/L (21-32) Anion Gap 21 mmol/L (5-15) 21 mmol/L (5-15) Blood Urea Nitrogen 133 mg/dL (7-18) 158 mg/dL (7-18) Creatinine 4.5 MG/DL (0.55-1.30) 5.1 MG/DL (0.55-1.30) Estimat Glomerular Filtration Rate 10.5 mL/min (>60) 9.1 mL/min (>60) Glucose Level 67 MG/DL (74-106) 99 MG/DL (74-106) Uric Acid 6.5 MG/DL (2.6-7.2) 7.9 MG/DL (2.6-7.2) Calcium Level 9.5 MG/DL (8.5-10.1) 8.7 MG/DL (8.5-10.1) Phosphorus Level 5.8 MG/DL (2.5-4.9) 7.7 MG/DL (2.5-4.9) Magnesium Level 3.4 MG/DL (1.8-2.4) 3.4 MG/DL (1.8-2.4) Total Bilirubin 0.5 MG/DL (0.2-1.0) 0.5 MG/DL (0.2-1.0) Aspartate Amino Transf (AST/SGOT) 23 U/L (15-37) 24 U/L (15-37) Alanine Aminotransferase (ALT/SGPT) 10 U/L (12-78) 9 U/L (12-78) Alkaline Phosphatase 203 U/L (46-116) 183 U/L (46-116) C-Reactive Protein, Quantitative 24.0 mg/dL (0.00-0.90) 26.9 mg/dL (0.00-0.90) Pro-B-Type Natriuretic Peptide > 74903 pg/mL (0-125) > 22762 pg/mL (0-125) Total Protein 7.1 G/DL (6.4-8.2) 6.6 G/DL (6.4-8.2) Albumin 2.6 G/DL (3.4-5.0) 2.2 G/DL (3.4-5.0) Globulin 4.5 g/dL 4.4 g/dL Albumin/Globulin Ratio 0.6 (1.0-2.7) 0.5 (1.0-2.7) Lipase 1171 U/L (73-393) 1357 U/L (73-393) Random Vancomycin Level 10.1 ug/mL Arterial Blood pH 7.442 (7.350-7.450) Arterial Blood Partial Pressure CO2 26.5 mmHg (35.0-45.0) Arterial Blood Partial Pressure O2 80.1 mmHg (75.0-100.0) Arterial Blood HCO3 17.7 mmol/L (22.0-26.0) Arterial Blood Oxygen Saturation 95.0 % (95-100) Arterial Blood Base Excess -5.8 (-2-2) Rojas Test Positive Troponin I 1.061 ng/mL (0.000-0.056) Amylase Level 309 U/L (25-115) Test 01/18/20 06:42 01/18/20 13:07 01/18/20 18:43 01/19/20 00:12 POC Whole Blood Glucose 108 MG/DL (74-106) 108 MG/DL (74-106) Test 01/19/20 03:51 01/19/20 04:00 01/19/20 05:48 White Blood Count 29.6 K/UL (4.8-10.8) Red Blood Count 2.39 M/UL (4.20-5.40) Hemoglobin 7.0 G/DL (12.0-16.0) Hematocrit 19.2 % (37.0-47.0) Mean Corpuscular Volume 80 FL (80-99) Mean Corpuscular Hemoglobin 29.2 PG (27.0-31.0) Mean Corpuscular Hemoglobin Concent 36.3 G/DL (32.0-36.0) Red Cell Distribution Width 14.4 % (11.6-14.8) Platelet Count 221 K/UL (150-450) Mean Platelet Volume 5.2 FL (6.5-10.1) Neutrophils (%) (Auto) % (45.0-75.0) Lymphocytes (%) (Auto) % (20.0-45.0) Monocytes (%) (Auto) % (1.0-10.0) Eosinophils (%) (Auto) % (0.0-3.0) Basophils (%) (Auto) % (0.0-2.0) POC Whole Blood Glucose 114 MG/DL (74-106) Height (Feet): 5 Height (Inches): 6.00 Weight (Pounds): 150 Objective Physical Exam: Vitals: reviewed General: NAD HEENT: nc, at Neck: supple ++trach/vent Chest: clear breath sounds bilaterally Cardiovascular: RRR, no s3, s4 Abdomen: soft, nontender, nd +gtube Extremities: no cce, normal range of motion Neuro: alert Evan Muhammad MD Jan 19, 2020 06:42
[2020-01-19 06:44] LABS: PHOSPHORUS 7.5 MG/DL (2.5-4.9)
--- NOTE | 2020-01-19 07:30 | NUR ---
NURSE HAND-OFF REPORT: Important Events on Shift: Sinus davis MD made aware Patient Status: stable Diet: nephro at 35cc/hr Pending Orders: n Pending Results/Labs:[n Pending MD notification:n Latest Vital Signs: Temperature 97.7 , Pulse 52 , B/P 110 /52 , Respiratory Rate 18 , O2 SAT 95 , Mechanical Ventilator, O2 Flow Rate . Vital Sign Comment: [n EKG Rhythm: Sinus Rhythm Rhythm change?: N MD Notified?: Y -Dr. Екатерина HATFIELD Response: Order Received& Read Back Latest Chav[place]ria Fall Score: 70 Fall Risk: High Risk Safety Measures: Call light Within Reach, Bed Alarm Zone 2, Side Rails Side Rails x2, Bed position Low and Locked. Fall Precautions: Yellow Socks Door Sign Patient Fall Education Report given to sanjuana RN/ ERASMO Myers.
--- NOTE | 2020-01-19 07:30 | NUR ---
NURSE NOTES: Received report from SHEBA RN. patient is on bed, no signs of grimacing and distress noted. Patient is on trache to vent S7 with settings AC 16, Vt 500, FiO2 40%, PEEP 5, tolerating well. Patient is on GT,patent, intact, with feeding, nepro running 35cc/hr, tolerating well. Patient is also on Norman catheter, patent, intact, draining bloody urine (hematuria). Has a L F Charlie (for HD access), R AC 20 g, L wrist 22 g, patent, intact, saline locked. HOB is elevated, bed is lowest position, locked, side rails up, call light within reach. Patient will continue to be monitored.
[2020-01-19] MEDS: Pantoprazole Inj IV SCH (08:06)
[2020-01-19] MEDS ORDERED: Vancomycin 1gm/D5W 275ml IVPB SCH ×2 (09:00)
[2020-01-19] MEDS ORDERED: NS 275ml ONE (09:01)
[2020-01-19] MEDS ORDERED: Tubing IV Secondary IV ONE (09:01)
--- NOTE | 2020-01-19 09:16 | General Progress Note ---
Subjective ROS Limited/Unobtainable: No Allergies: Coded Allergies: No Known Allergies (Unverified , 10/10/17) Objective Last 24 Hour Vital Signs Date Time Temp Pulse Resp B/P (MAP) Pulse Ox O2 Delivery O2 Flow Rate FiO2 01/19/20 08:00 56 01/19/20 04:00 97.7 52 18 110/52 (71) 95 01/19/20 04:00 Mechanical Ventilator Mechanical Ventilator 01/19/20 03:37 57 01/19/20 03:08 67 20 40 01/19/20 00:00 Mechanical Ventilator Mechanical Ventilator 01/19/20 00:00 96.6 51 18 141/63 (89) 95 01/18/20 23:43 52 01/18/20 22:40 72 22 40 01/18/20 20:00 98.1 51 18 117/60 (79) 95 01/18/20 20:00 40 01/18/20 20:00 Mechanical Ventilator Mechanical Ventilator 01/18/20 19:35 42 01/18/20 19:22 52 01/18/20 19:14 88 20 45 01/18/20 16:00 98.1 59 18 129/61 (83) 95 01/18/20 16:00 66 01/18/20 15:59 Mechanical Ventilator Mechanical Ventilator 01/18/20 15:09 65 21 45 01/18/20 12:00 Mechanical Ventilator Mechanical Ventilator 01/18/20 12:00 69 01/18/20 12:00 99.9 66 21 103/51 (68) 92 01/18/20 11:02 69 20 45 01/18/20 10:00 73 21 120/69 (86) 92 Intake and Output 01/18/20 01/19/20 19:00 07:00 Intake Total 470 ml 440 ml Output Total 115 ml 200 ml Balance 355 ml 240 ml Tube Feeding 220 ml 390 ml Blood Product 250 ml 50 ml Output Urine Total 115 ml 200 ml # Bowel Movements 1 2 Laboratory Tests 01/18/20 13:07: POC Whole Blood Glucose 108H 01/18/20 18:43: POC Whole Blood Glucose 108H 01/19/20 00:12: POC Whole Blood Glucose [Pending] 01/19/20 03:51: White Blood Count 29.6*H, Red Blood Count 2.39L, Hemoglobin 7.0L, Hematocrit 19.2L, Mean Corpuscular Volume 80, Mean Corpuscular Hemoglobin 29.2, Mean Corpuscular Hemoglobin Concent 36.3H, Red Cell Distribution Width 14.4, Platelet Count 221, Mean Platelet Volume 5.2L, Neutrophils (%) (Auto) , Lymphocytes (%) (Auto) , Monocytes (%) (Auto) , Eosinophils (%) (Auto) , Basophils (%) (Auto) , Neutrophils % (Manual) [Pending], Lymphocytes % (Manual) [Pending], Platelet Estimate [Pending], Platelet Morphology [Pending], Sodium Level 137, Potassium Level 4.1, Chloride Level 98, Carbon Dioxide Level 20L, Anion Gap 19H, Blood Urea Nitrogen 139H, Creatinine 4.6H, Estimat Glomerular Filtration Rate 10.2, Glucose Level 126H, Uric Acid 7.3H, Calcium Level 8.4L, Phosphorus Level 7.5H, Magnesium Level 3.0H, Total Bilirubin 0.5, Aspartate Amino Transf (AST/SGOT) 22, Alanine Aminotransferase (ALT/SGPT) 9L, Alkaline Phosphatase 184H, C-Reactive Protein, Quantitative 25.1H, Pro-B-Type Natriuretic Peptide > 51381Y, Total Protein 6.1L, Albumin 2.1L, Globulin 4.0, Albumin/Globulin Ratio 0.5L, Amylase Level 345H, Lipase > 2000H, Random Vancomycin Level 16.9 01/19/20 04:00: Stool Occult Blood [Pending] 01/19/20 05:48: POC Whole Blood Glucose 114H Height (Feet): 5 Height (Inches): 6.00 Weight (Pounds): 150 Neck: supple Cardiovascular: bradycardia Respiratory/Chest: decreased breath sounds Abdomen: hypoactive bowel sounds Extremities: non-tender Assessment/Plan Problem List: (1) Hx of CABG ICD Codes: Z95.1 - Presence of aortocoronary bypass graft SNOMED: 878249488, 159121666 (2) History of tracheostomy ICD Codes: Z98.890 - Other specified postprocedural states SNOMED: 490091779, 317084898 (3) PEG (percutaneous endoscopic gastrostomy) status ICD Codes: Z93.1 - Gastrostomy status SNOMED: 524454132, 381258627 (4) S/P aortic dissection repair ICD Codes: Z98.890 - Other specified postprocedural states SNOMED: 551767999, 643704956 (5) Renal failure ICD Codes: N19 - Unspecified kidney failure SNOMED: 54160995, 224594187 (6) Anemia ICD Codes: D64.9 - Anemia, unspecified SNOMED: 203764428 Assessment/Plan: not stable for GI procedures ppi blood transfusion fu labs EGD when more stable GT topical care low dose GTF tolerated fu nephrology HD per nephrology new hematuria repeat amylase and lipase recommend hospice Inder Arteaga MD Jan 19, 2020 09:16
[2020-01-19 10:51] LABS: ALANINE AMINOTRANSFERASE < 6 U/L (12-78); ALBUMIN/GLOBULIN RATIO 0.5 (1.0-2.7); ALKALINE PHOSPHATASE 188 U/L (46-116); ANION GAP 16 mmol/L (5-15); ASPARTATE AMINO TRANSFERASE 20 U/L (15-37); BILIRUBIN,TOTAL 0.4 MG/DL (0.2-1.0); BLOOD UREA NITROGEN 141 mg/dL (7-18); CALCIUM 8.2 MG/DL (8.5-10.1); CARBON DIOXIDE 22 MMOL/L (21-32); CHLORIDE 96 MMOL/L (98-107); CREATININE 4.7 MG/DL (0.55-1.30); POTASSIUM 3.9 MMOL/L (3.5-5.1); SODIUM 134 MMOL/L (136-145)
[2020-01-19] MEDS: Meropenem 500 MG in NS 55 ML IVPB SCH (10:58)
--- NOTE | 2020-01-19 11:04 | Diagnostic Imaging Report ---
EXAM: XR Chest, 2 Views CLINICAL HISTORY: F/U TECHNIQUE: Frontal and lateral views of the chest. COMPARISON: Chest radiograph on 01/15/2020 FINDINGS: Hardware: Tracheostomy tube terminating in the region of the upper thoracic trachea. Lungs/pleura: Similar opacification of the left hemithorax likely representing combination of pleural effusion with atelectasis versus pneumonia/edema. Decreased but persistent hazy opacity throughout the right lung may represent edema versus infectious/inflammatory process. Heart/mediastinum: Stable mild enlargement of the cardiac silhouette. Median sternotomy changes. Soft tissues: Unremarkable. Bones: No acute fracture. Upper abdomen: Normal. IMPRESSION: Similar opacification of the left hemithorax likely representing combination of pleural effusion with atelectasis versus pneumonia/edema. Decreased but persistent hazy opacity throughout the right lung may represent edema versus infectious/inflammatory process.
--- NOTE | 2020-01-19 11:22 | Nephrology Progress Note ---
Assessment/Plan Problem List: (1) ARF (acute renal failure) (2) Pacemaker (3) Sepsis (4) Hyponatremia Assessment (1) JAVIER (acute kidney injury) (2) Renal failure (ARF), acute on chronic (3) Feeding by G-tube (4) Tracheostomy in place (5) Electrolyte imbalance, hyponatremia (6) Anemia, severe (7) Respiratory failure, acute and chronic (8) Elevated lipase, pancreatitis (9) Elevated troponin I (10) Sepsis Plan January 18: Dialyzed yesterday. Labs reviewed. Renal parameters electrolytes much improved. Dialysis again tomorrow. Continue rest. January 17: Dialyzed this morning. Labs reviewed. Renal parameters and electrolyte abnormalities improved. Discussed with RN. Continue per consultants. January 16: Dialyzed yesterday. Labs improved. Next dialysis tomorrow. Continue per consultants. January 15: Patient to have dialysis catheter. Emergency dialysis for correction of uremia and electrolyte imbalances Antibiotics Transfusion Continue to monitor renal parameters Per orders Discussed with RN Subjective ROS Limited/Unobtainable: Yes Objective Objective Last 24 Hour Vital Signs Date Time Temp Pulse Resp B/P (MAP) Pulse Ox O2 Delivery O2 Flow Rate FiO2 01/19/20 08:00 56 01/19/20 04:00 97.7 52 18 110/52 (71) 95 01/19/20 04:00 Mechanical Ventilator Mechanical Ventilator 01/19/20 03:37 57 01/19/20 03:08 67 20 40 01/19/20 00:00 Mechanical Ventilator Mechanical Ventilator 01/19/20 00:00 96.6 51 18 141/63 (89) 95 01/18/20 23:43 52 01/18/20 22:40 72 22 40 01/18/20 20:00 98.1 51 18 117/60 (79) 95 01/18/20 20:00 40 01/18/20 20:00 Mechanical Ventilator Mechanical Ventilator 01/18/20 19:35 42 01/18/20 19:22 52 01/18/20 19:14 88 20 45 01/18/20 16:00 98.1 59 18 129/61 (83) 95 01/18/20 16:00 66 01/18/20 15:59 Mechanical Ventilator Mechanical Ventilator 01/18/20 15:09 65 21 45 01/18/20 12:00 Mechanical Ventilator Mechanical Ventilator 01/18/20 12:00 69 01/18/20 12:00 99.9 66 21 103/51 (68) 92 Intake and Output 01/18/20 01/19/20 19:00 07:00 Intake Total 470 ml 440 ml Output Total 115 ml 200 ml Balance 355 ml 240 ml Tube Feeding 220 ml 390 ml Blood Product 250 ml 50 ml Output Urine Total 115 ml 200 ml # Bowel Movements 1 2 Current Medications Medications (Trade) Dose Ordered Sig/Penny Route PRN Reason Start Time Stop Time Status Last Admin Dose Admin Atorvastatin Calcium (Lipitor) 10 mg BEDTIME GT 01/17/20 21:00 04/16/20 20:59 01/18/20 20:58 Chlorhexidine Gluconate (Ling-Hex 2%) 1 applic DAILY@1999 TOPIC 01/17/20 20:00 04/16/20 19:59 01/18/20 20:55 Dextrose (Dextrose 50%) 25 ml Q30M PRN IV Hypoglycemia 01/15/20 22:15 04/14/20 22:14 Dextrose (Dextrose 50%) 50 ml Q30M PRN IV Hypoglycemia 01/15/20 22:15 04/14/20 22:14 Meropenem 500 mg/ Sodium Chloride 55 ml @ 110 mls/hr Q24H IVPB 01/17/20 10:30 01/22/20 10:29 01/19/20 10:58 Metoclopramide HCl (Reglan) 5 mg Q6H PRN IVP Nausea & Vomiting 01/15/20 22:15 02/14/20 22:14 Pantoprazole (Protonix) 40 mg EVERY 12 HOURS IV 01/16/20 09:00 02/15/20 08:59 01/19/20 08:06 Vancomycin HCl ([facility] pharmacy to dose) 1 ea DAILY PRN MISC Per rx protocol 01/15/20 22:15 02/14/20 22:14 Zinc Oxide (Zinc Oxide) 1 applic TIDPRN PRN TOPIC diogenes GT 01/16/20 13:15 04/15/20 13:14 01/16/20 14:55 Laboratory Tests 01/18/20 13:07: POC Whole Blood Glucose 108H 01/18/20 18:43: POC Whole Blood Glucose 108H 01/19/20 00:12: POC Whole Blood Glucose [Pending] 01/19/20 03:51: White Blood Count 29.6*H, Red Blood Count 2.39L, Hemoglobin 7.0L, Hematocrit 19.2L, Mean Corpuscular Volume 80, Mean Corpuscular Hemoglobin 29.2, Mean Corpuscular Hemoglobin Concent 36.3H, Red Cell Distribution Width 14.4, Platelet Count 221, Mean Platelet Volume 5.2L, Neutrophils (%) (Auto) , Lymphocytes (%) (Auto) , Monocytes (%) (Auto) , Eosinophils (%) (Auto) , Basophils (%) (Auto) , Differential Total Cells Counted 100, Neutrophils % (Manual) 84H, Lymphocytes % (Manual) 10L, Monocytes % (Manual) 6, Eosinophils % (Manual) 0, Basophils % (Manual) 0, Band Neutrophils 0, Platelet Estimate Adequate, Platelet Morphology Normal, Polychromasia 1+, Hypochromasia 1+, Anisocytosis 1+, Microcytosis 1+, Sodium Level 137, Potassium Level 4.1, Chloride Level 98, Carbon Dioxide Level 20L, Anion Gap 19H, Blood Urea Nitrogen 139H, Creatinine 4.6H, Estimat Glomerular Filtration Rate 10.2, Glucose Level 126H, Uric Acid 7.3H, Calcium Level 8.4L, Phosphorus Level 7.5H, Magnesium Level 3.0H, Total Bilirubin 0.5, Aspartate Amino Transf (AST/SGOT) 22, Alanine Aminotransferase (ALT/SGPT) 9L, Alkaline Phosphatase 184H, C-Reactive Protein, Quantitative 25.1H, Pro-B-Type Natriuretic Peptide > 51428Y, Total Protein 6.1L, Albumin 2.1L, Globulin 4.0, Albumin/Globulin Ratio 0.5L, Amylase Level 345H, Lipase > 2000H, Random Vancomycin Level 16.9 01/19/20 04:00: Stool Occult Blood [Pending] 01/19/20 05:48: POC Whole Blood Glucose 114H 01/19/20 09:30: Sodium Level 134L, Potassium Level 3.9, Chloride Level 96L, Carbon Dioxide Level 22, Anion Gap 16H, Blood Urea Nitrogen 141H, Creatinine 4.7H, Estimat Glomerular Filtration Rate 9.9, Glucose Level 126H, Calcium Level 8.2L, Total Bilirubin 0.4, Aspartate Amino Transf (AST/SGOT) 20, Alanine Aminotransferase (A LT/SGPT) < 6L, Alkaline Phosphatase 188H, Total Protein 6.0L, Albumin 2.0L, Globulin 4.0, Albumin/Globulin Ratio 0.5L Height (Feet): 5 Height (Inches): 6.00 Weight (Pounds): 150 General Appearance: no apparent distress, lethargic EENT: other - Trach to vent Cardiovascular: normal rate Respiratory/Chest: decreased breath sounds Abdomen: distended Johnny Houston MD Jan 19, 2020 11:22
[2020-01-19 12:00] VITALS: BP 104/65
--- NOTE | 2020-01-19 15:00 | NUR ---
NURSE NOTES: Dr maier made aware of patients wbc of 29.6 today. no new orders recieved.
--- NOTE | 2020-01-19 15:55 | NUR ---
NURSE NOTES: Blood started. Vital signs taken prior to blood transfusion, stable BP 125/55, O2 sat 100%, RR 16, temp 97.3, HR 56. Patient will continue to be monitored.
--- NOTE | 2020-01-19 15:58 | Surgery Progress Note ---
Surgery Progress Note Subjective Procedure Performed Left femoral temporary hemodialysis catheter insertion Additional Comments comfortable jose a eokay vent support lab snoted Objective Last 24 Hour Vital Signs Date Time Temp Pulse Resp B/P (MAP) Pulse Ox O2 Delivery O2 Flow Rate FiO2 01/19/20 12:20 56 01/19/20 12:00 98.1 63 20 104/65 (78) 98 01/19/20 12:00 Mechanical Ventilator Mechanical Ventilator 01/19/20 10:55 80 14 40 01/19/20 08:00 Mechanical Ventilator Mechanical Ventilator 01/19/20 08:00 56 01/19/20 07:05 56 20 40 01/19/20 04:00 97.7 52 18 110/52 (71) 95 01/19/20 04:00 Mechanical Ventilator Mechanical Ventilator 01/19/20 03:37 57 01/19/20 03:08 67 20 40 01/19/20 00:00 Mechanical Ventilator Mechanical Ventilator 01/19/20 00:00 96.6 51 18 141/63 (89) 95 01/18/20 23:43 52 01/18/20 22:40 72 22 40 01/18/20 20:00 98.1 51 18 117/60 (79) 95 01/18/20 20:00 40 01/18/20 20:00 Mechanical Ventilator Mechanical Ventilator 01/18/20 19:35 42 01/18/20 19:22 52 01/18/20 19:14 88 20 45 01/18/20 16:00 98.1 59 18 129/61 (83) 95 01/18/20 16:00 66 01/18/20 15:59 Mechanical Ventilator Mechanical Ventilator I&O Intake and Output 01/18/20 01/19/20 19:00 07:00 Intake Total 470 ml 440 ml Output Total 115 ml 200 ml Balance 355 ml 240 ml Tube Feeding 220 ml 390 ml Blood Product 250 ml 50 ml Output Urine Total 115 ml 200 ml # Bowel Movements 1 2 Dressing: saturated Cardiovascular: RSR Respiratory: decreased breath sounds Abdomen: non-tender, present bowel sounds, non-distended Extremities: edema, no tenderness, no cyanosis Laboratory Tests Test 01/18/20 18:43 01/19/20 00:12 01/19/20 03:51 01/19/20 04:00 POC Whole Blood Glucose 108 MG/DL (74-106) H Pending White Blood Count 29.6 K/UL (4.8-10.8) *H Red Blood Count 2.39 M/UL (4.20-5.40) L Hemoglobin 7.0 G/DL (12.0-16.0) L Hematocrit 19.2 % (37.0-47.0) L Mean Corpuscular Volume 80 FL (80-99) Mean Corpuscular Hemoglobin 29.2 PG (27.0-31.0) Mean Corpuscular Hemoglobin Concent 36.3 G/DL (32.0-36.0) H Red Cell Distribution Width 14.4 % (11.6-14.8) Platelet Count 221 K/UL (150-450) Mean Platelet Volume 5.2 FL (6.5-10.1) L Neutrophils (%) (Auto) % (45.0-75.0) Lymphocytes (%) (Auto) % (20.0-45.0) Monocytes (%) (Auto) % (1.0-10.0) Eosinophils (%) (Auto) % (0.0-3.0) Basophils (%) (Auto) % (0.0-2.0) Differential Total Cells Counted 100 Neutrophils % (Manual) 84 % (45-75) H Lymphocytes % (Manual) 10 % (20-45) L Monocytes % (Manual) 6 % (1-10) Eosinophils % (Manual) 0 % (0-3) Basophils % (Manual) 0 % (0-2) Band Neutrophils 0 % (0-8) Platelet Estimate Adequate Platelet Morphology Normal Polychromasia 1+ Hypochromasia 1+ Anisocytosis 1+ Microcytosis 1+ Sodium Level 137 MMOL/L (136-145) Potassium Level 4.1 MMOL/L (3.5-5.1) Chloride Level 98 MMOL/L (98-107) Carbon Dioxide Level 20 MMOL/L (21-32) L Anion Gap 19 mmol/L (5-15) H Blood Urea Nitrogen 139 mg/dL (7-18) H Creatinine 4.6 MG/DL (0.55-1.30) H Estimat Glomerular Filtration Rate 10.2 mL/min (>60) Glucose Level 126 MG/DL (74-106) H Uric Acid 7.3 MG/DL (2.6-7.2) H Calcium Level 8.4 MG/DL (8.5-10.1) L Phosphorus Level 7.5 MG/DL (2.5-4.9) H Magnesium Level 3.0 MG/DL (1.8-2.4) H Total Bilirubin 0.5 MG/DL (0.2-1.0) Aspartate Amino Transf (AST/SGOT) 22 U/L (15-37) Alanine Aminotransferase (ALT/SGPT) 9 U/L (12-78) L Alkaline Phosphatase 184 U/L (46-116) H C-Reactive Protein, Quantitative 25.1 mg/dL (0.00-0.90) H Pro-B-Type Natriuretic Peptide > 79268 pg/mL (0-125) H Total Protein 6.1 G/DL (6.4-8.2) L Albumin 2.1 G/DL (3.4-5.0) L Globulin 4.0 g/dL Albumin/Globulin Ratio 0.5 (1.0-2.7) L Amylase Level 345 U/L (25-115) H Lipase > 2000 U/L (73-393) H Random Vancomycin Level 16.9 ug/mL Stool Occult Blood Pending Test 01/19/20 05:48 01/19/20 09:30 01/19/20 12:19 POC Whole Blood Glucose 114 MG/DL (74-106) H 107 MG/DL (74-106) H Sodium Level 134 MMOL/L (136-145) L Potassium Level 3.9 MMOL/L (3.5-5.1) Chloride Level 96 MMOL/L (98-107) L Carbon Dioxide Level 22 MMOL/L (21-32) Anion Gap 16 mmol/L (5-15) H Blood Urea Nitrogen 141 mg/dL (7-18) H Creatinine 4.7 MG/DL (0.55-1.30) H Estimat Glomerular Filtration Rate 9.9 mL/min (>60) Glucose Level 126 MG/DL (74-106) H Calcium Level 8.2 MG/DL (8.5-10.1) L Total Bilirubin 0.4 MG/DL (0.2-1.0) Aspartate Amino Transf (AST/SGOT) 20 U/L (15-37) Alanine Aminotransferase (ALT/SGPT) < 6 U/L (12-78) L Alkaline Phosphatase 188 U/L (46-116) H Total Protein 6.0 G/DL (6.4-8.2) L Albumin 2.0 G/DL (3.4-5.0) L Globulin 4.0 g/dL Albumin/Globulin Ratio 0.5 (1.0-2.7) L Plan Problems: (1) Dehydration (2) Acidosis (3) Depression (4) Pleural effusion (5) Respiratory failure Assessment & Plan: on vent wean as tolerated trach okay (6) Schizophrenia (7) Hypoxia (8) UTI (urinary tract infection) (9) Pneumonia (10) NSTEMI (non-ST elevated myocardial infarction) (11) Tracheostomy in place (12) Feeding by G-tube (13) JAVIER (acute kidney injury) (14) Acute encephalopathy (15) Sacral decubitus ulcer, stage IV (16) Chronic respiratory failure (17) Ascites (18) Bacteremia (19) Hypernatremia (20) Proteinuria (21) Electrolyte imbalance (22) ACS (acute coronary syndrome) (23) Aortic dissection, thoracic (24) Respiratory failure, acute and chronic (25) JAVIER (acute kidney injury) (26) Abrasion of lip, initial encounter (27) COPD with exacerbation (28) Elevated alkaline phosphatase level (29) Renal failure (ARF), acute on chronic (30) HCAP (healthcare-associated pneumonia) (31) GT CLOGGED (32) Elevated lipase (33) Pancreatitis (34) Elevated troponin (35) Hypokalemia (36) Hyponatremia (37) Anemia (38) Renal failure (39) ARF (acute renal failure) (40) Pacemaker (41) Sepsis Assessment & Plan: leukocytosis anemia on HD renal insufficiency wounds addressed pt presented on admission with Tracheostomy ,GT and Multiple Pressure Injuries. Skin assessment of skin under tracheal collar without evidence of skin breakdown. Peristomal GT site excoriated.Moderate amt of dark red sanguineous exudate. Full Thickness Sacral Pressure Injury with undermined borders (L)9 cm x (W)12cm x (D)1.8cm,Undermining clockwise8-9 by 2.2cm @1o'clock,undermining clockwise 1-4 by 1.9 @ 9'oclock Scattered necrotic tissue within wound bed. Borders are loose and necrotic with marginal erythema to outer perimeter of wound. NO elevation in skin temp noted periwound. Wound is malodorous. Small amt Brown exudate noted. Resolving Pressure Injury L Ischium(L)1.5cm x (W)1.5cm. Base of wound is 80% pink epithelial with an area that is moist and pink. NO odor or exudate noted. Bilat foot-drop noted. L Heel is boggy with non-blanchable erythema(L)4cm x (W)4cm. R heel is boggy with non-Blanchable erythema(L)5cm x (W)6cm. Tx.Plan: Cleanse sacral wound with Dakin's 0.125% annie. Loosely pack with Dakin's moistened Kerlix(Attention to undermined borders). Apply Moisture Barrier Paste periwound. Cover with Optifoam drsg. Change Daily and PRN. Apply Cavilon Skin Barrier to R and L Hels. Cover each heel with Optifoam drsg. Change every 7 days and prn. Reposition at least every 2hours or as tolerated. Off-load heels with Pillow. APM/JENNIFER MAttress overlay DAILY ESTIMATED NEEDS: Needs based on Critical care, wound, renal dysfunction 56 kg abw 28-33 kcals/kg 6411-3649 total kcals W/ HD (1.5-2.0) g protein/kg 84-112 g total protein Fluid per MD mL/kg . total fluid mLs NUTRITION DIAGNOSIS: * Swallowing difficulty R/T dysphagia, respiratory status as evidenced by vent dep via trach, GT Dep. * Increase kcal and pro needs r/t wound healing, renal dysfunction as evidenced by admitted w/ large, advanced sacral wound, previously stage 4, pending eval, admitted w/ JAVIER, pending HD. CURRENT TF:NPO ENTERAL NUTRITION RECOMMENDATIONS: Nepro @ 40ml/hr x 24 hrs + Prosource 1pkt QD to provide 960ml, 1728kcal, 78g+11g prot, 698ml free water * As medically appropriate, initiate TF on Nepro, rec goal rate fo 40ml/hr x 24 hrs * Add Prosource 1pkt QD to better meet increased protein needs (additional 11g prot) * Water flush per MD/ HOB over 30 degrees ADDITIONAL RECOMMENDATIONS: * Per SNF in NOV 2019: HT=63"/ Rec daily calibrated bedscale wt * Monitor for continuity of HD: non-tunneled cath placement ordered * Monitor lytes and renal fxn for improvement (Na low, K and phos elevated) * Wound care: add Nephrovite x 1, ZnSO4 220mg QD x 10 days Reynaldo BID via PEG (mix w/ 2-4 oz water) * Monitor BG closely for hypoglycemia while NPO (h/o DM, on Nacl 3% to correct hyponatremia, consider accuchecks) (42) Hyponatremia Lane Saavedra Jan 19, 2020 15:58
[2020-01-19 16:00] VITALS: BP 125/55
--- NOTE | 2020-01-19 18:15 | Consultation ---
DATE OF CONSULTATION: 01/19/2020 PULMONARY CONSULTATION CONSULTING PHYSICIAN: Elijah Stephen MD HISTORY OF PRESENT ILLNESS: This is a 49-year-old female who was admitted to the hospital. She has renal failure and sepsis. She also has developed atrial flutter requiring Cardiology consultation. The patient currently is nonverbal. She is a assisted resident. She is trach and vent dependent with chronic respiratory failure and by mouth x0 at baseline. The patient was admitted with hypoxemia and was found to be hypoxic on evaluation. The patient is unable to provide any further information. RN has noted leakage around G-tube site. The patient has been admitted and is currently on antibiotics. She has been seen by Nephrology, Cardiology, ID, and Surgery. PAST MEDICAL HISTORY: Notable for respiratory failure, chronic tracheostomy, chronic vent. She has a nondisplaced fracture of left femur and a permanent pacemaker. ALLERGIES: None. HOME MEDICATIONS: Reviewed and reconciled in chart. In terms of antibiotics, the patient is noted to be on vancomycin per pharmacy and meropenem. ALLERGIES: None. PHYSICAL EXAMINATION: GENERAL: Reveals a 49-year-old female. VITAL SIGNS: Blood pressure is 104/60, heart rate 56, respirations 18, O2 saturation 98% on respirator. HEENT: Unremarkable. NECK: Tracheotomy site is clean. CHEST: Lungs with clear breath sounds bilaterally. ABDOMEN: Soft. EXTREMITIES: There is no edema. LABORATORY DATA: Lab testing shows white count 29,000, hemoglobin 7, platelet count is normal. Chemistries notable for creatinine of 4.7. ABG, pH 7.44, pCO2 of 22, pO2 of 80. IMAGING STUDIES: X-ray of chest was obtained today, which shows opacification of left hemothorax with left pleural effusion. IMPRESSION: 1. Large left effusion. 2. Chronic respiratory failure. 3. Sepsis. DISCUSSION: Admit to the hospital. Broad-spectrum antibiotics. I will consider thoracentesis. . I will continue AC mode. I will follow carefully. Pulmonary hygiene. DVT and GI prophylaxes. Elijah Stephen M.D. DR: Adán JOB#: [id number] CC: JAIR
--- NOTE | 2020-01-19 19:10 | NUR ---
NURSE NOTES: Received report from ERASMO Locke. Patient asleep in bed, afebrile and no respiratory distress noted. 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 Pt is arousable, opens eyes and tracks. trache to vent S7, AC 20, TV 500, FiO2 40% and PEEP 8 saturating at 97-99%.NPO for now due to hematochezia. With Right AC 20g and left Wrist 22 G IV lines intact, patent and asymptomatic. With left femoral arden catheter intact and asymptomatic. Dressing is clean and dry. with FC to urine bag draining hematuria. Needs were attended. Bed rails are up and wheels are locked. Continue to monitor the patient.
--- NOTE | 2020-01-19 19:25 | General Progress Note ---
Subjective Constitutional: Reports: no symptoms, other - Is somnolent during the visit Daily awakening at 4 immediately back to sleep HEENT: Reports: no symptoms Cardiovascular: Reports: no symptoms Respiratory: Reports: no symptoms Gastrointestinal/Abdominal: Reports: no symptoms Genitourinary: Reports: no symptoms Neurologic/Psychiatric: Reports: no symptoms Endocrine: Reports: no symptoms Hematologic/Lymphatic: Reports: no symptoms Allergies: Coded Allergies: No Known Allergies (Unverified , 10/10/17) Objective Last 24 Hour Vital Signs Date Time Temp Pulse Resp B/P (MAP) Pulse Ox O2 Delivery O2 Flow Rate FiO2 01/19/20 18:32 66 25 40 01/19/20 16:00 Mechanical Ventilator Mechanical Ventilator 01/19/20 16:00 97.3 56 16 125/55 (78) 100 01/19/20 15:23 46 01/19/20 15:00 66 17 40 01/19/20 12:20 56 01/19/20 12:00 98.1 63 20 104/65 (78) 98 01/19/20 12:00 Mechanical Ventilator Mechanical Ventilator 01/19/20 10:55 80 14 40 01/19/20 08:00 Mechanical Ventilator Mechanical Ventilator 01/19/20 08:00 56 01/19/20 07:05 56 20 40 01/19/20 04:00 97.7 52 18 110/52 (71) 95 01/19/20 04:00 Mechanical Ventilator Mechanical Ventilator 01/19/20 03:37 57 01/19/20 03:08 67 20 40 01/19/20 00:00 Mechanical Ventilator Mechanical Ventilator 01/19/20 00:00 96.6 51 18 141/63 (89) 95 01/18/20 23:43 52 01/18/20 22:40 72 22 40 01/18/20 20:00 98.1 51 18 117/60 (79) 95 01/18/20 20:00 40 01/18/20 20:00 Mechanical Ventilator Mechanical Ventilator 01/18/20 19:35 42 01/18/20 19:22 52 Intake and Output 01/18/20 01/19/20 19:00 07:00 Intake Total 470 ml 440 ml Output Total 115 ml 200 ml Balance 355 ml 240 ml Tube Feeding 220 ml 390 ml Blood Product 250 ml 50 ml Output Urine Total 115 ml 200 ml # Bowel Movements 1 2 Laboratory Tests 01/19/20 00:12: POC Whole Blood Glucose [Pending] 01/19/20 03:51: White Blood Count 29.6*H, Red Blood Count 2.39L, Hemoglobin 7.0L, Hematocrit 19.2L, Mean Corpuscular Volume 80, Mean Corpuscular Hemoglobin 29.2, Mean Corpuscular Hemoglobin Concent 36.3H, Red Cell Distribution Width 14.4, Platelet Count 221, Mean Platelet Volume 5.2L, Neutrophils (%) (Auto) , Lymphocytes (%) (Auto) , Monocytes (%) (Auto) , Eosinophils (%) (Auto) , Basophils (%) (Auto) , Differential Total Cells Counted 100, Neutrophils % (Manual) 84H, Lymphocytes % (Manual) 10L, Monocytes % (Manual) 6, Eosinophils % (Manual) 0, Basophils % (Manual) 0, Band Neutrophils 0, Platelet Estimate Adequate, Platelet Morphology Normal, Polychromasia 1+, Hypochromasia 1+, Anisocytosis 1+, Microcytosis 1+, Sodium Level 137, Potassium Level 4.1, Chloride Level 98, Carbon Dioxide Level 20L, Anion Gap 19H, Blood Urea Nitrogen 139H, Creatinine 4.6H, Estimat Glomerular Filtration Rate 10.2, Glucose Level 126H, Uric Acid 7.3H, Calcium Level 8.4L, Phosphorus Level 7.5H, Magnesium Level 3.0H, Total Bilirubin 0.5, Aspartate Amino Transf (AST/SGOT) 22, Alanine Aminotransferase (ALT/SGPT) 9L, Alkaline Phosphatase 184H, C-Reactive Protein, Quantitative 25.1H, Pro-B-Type Natriuretic Peptide > 65357I, Total Protein 6.1L, Albumin 2.1L, Globulin 4.0, Albumin/Globulin Ratio 0.5L, Amylase Level 345H, Lipase > 2000H, Random Vancomycin Level 16.9 01/19/20 04:00: Stool Occult Blood [Pending] 01/19/20 05:48: POC Whole Blood Glucose 114H 01/19/20 09:30: Sodium Level 134L, Potassium Level 3.9, Chloride Level 96L, Carbon Dioxide Level 22, Anion Gap 16H, Blood Urea Nitrogen 141H, Creatinine 4.7H, Estimat Glomerular Filtration Rate 9.9, Glucose Level 126H, Calcium Level 8.2L, Total Bilirubin 0.4, Aspartate Amino Transf (AST/SGOT) 20, Alanine Aminotransferase (ALT/SGPT) < 6L, Alkaline Phosphatase 188H, Total Protein 6.0L, Albumin 2.0L, Globulin 4.0, Albumin/Globulin Ratio 0.5L 01/19/20 12:19: POC Whole Blood Glucose 107H 01/19/20 18:21: POC Whole Blood Glucose [Pending] Height (Feet): 5 Height (Inches): 6.00 Weight (Pounds): 150 General Appearance: WD/WN, no apparent distress, lethargic EENT: normal ENT inspection Neck: supple Cardiovascular: normal rate, regular rhythm, no gallop/murmur, no JVD, bradycardia Respiratory/Chest: lungs clear, normal breath sounds, no respiratory distress, no accessory muscle use, other - Some rhonchi at both bases Abdomen: normal bowel sounds, non tender, soft, no organomegaly, no mass Extremities: non-tender Neurologic: responsive Skin: warm/dry Assessment/Plan Status Narrative Patient is afebrile medically stable but borderline bradycardia received 1 unit of packed RBC yesterday and received 1 unit today latest blood cultures are negative she has been dialyzed today parameters are improving however leukocytosis now mohit from 26,000-29,000 over the last 24 hours vancomycin was DC'd and she is on only on meropenem now Repeat laboratory tests will be done in a.m. as a Lucas Paul MD, MD Jan 19, 2020 19:25
--- NOTE | 2020-01-19 19:29 | NUR ---
NURSE HAND-OFF REPORT: Important Events on Shift:blood transfusion, stable Patient Status: full code Diet: npo Pending Orders: [] Pending Results/Labs:[] Pending MD notification:[] Latest Vital Signs: Temperature 97.3 , Pulse 66 , B/P 125 /55 , Respiratory Rate 25 , O2 SAT 100 , Mechanical Ventilator, O2 Flow Rate . Vital Sign Comment: stable EKG Rhythm: Sinus Bradycardia Rhythm change?: N MD Notified?: Gabriel Willams MD Response: Order Received& Read Back Latest Chav[place]ria Fall Score: 70 Fall Risk: High Risk Safety Measures: Call light Within Reach, Bed Alarm Zone 2, Side Rails Side Rails x2, Bed position Low and Locked. Fall Precautions: Yellow Socks Report given to SHEBA ramesh.
[2020-01-19 20:00] VITALS: BP 140/60
[2020-01-19] MEDS: Dyna-Hex 2% Top Sol 2oz TOPIC SCH (20:14)
[2020-01-20] VITALS: BP 146/86
--- NOTE | 2020-01-20 02:00 | NUR ---
NURSE NOTES: Pt asleep in bed. changed gown and linen. given partial bed bath. pt tolerated well. on SR with 65 bpm on hall monitor Continue to monitor the patient
--- NOTE | 2020-01-20 03:05 | Cardiology Progress Note ---
Subjective DATE OF SERVICE: Jan 18, 2020 Remains in ICU On IV anti-arrhythmics Full vent support via trach Heart rates now slowing (42-88) Objective Vitals: 117/60 42-80 18-22 afebrile ROS: unchanged for 01/17/20 HEENT: Mechanically Ventilated, Thick Trach secretions RHYTHM: Afib LUNGS: diminished breath sounds - left, bilateral rhonchi CARDIAC: normal S1 and S2, irregularly irregular ABDOMEN: normal bowel sounds, non tender, soft, G-Tube intact EXTREMITIES: normal inspection, trace edema Laboratory Tests reviewed Microbiology Date/Time Source Procedure Growth Status 01/19/20 04:00 Stool Clostridium difficile Toxin Assay - Final Complete 01/17/20 04:10 Blood Blood Culture - Preliminary NO GROWTH AFTER 24 HOURS Resulted EKG INTERPRETATION: reviewed Assessment/Plan Assessment/Plan Chronic respiratory failure with trach Severe sepsis PAFib with rapid ventric response - now slowing on amiodarone. Ischemic cardiomyopathy - hx CABG and s/p NSTEMI in Dec 2019. Conduction system disease of the heart Hx of permanent pacemaker explant Acute on chronic systolic and diastolic CHF Pleural effusion DC amiodarone gtts Reassess beta flori dosing Anti-failure and anti-anginal regimen with titration Vent support Abx per ID Continuous cardiac monitoring Deni Willams MD Jan 20, 2020 03:05
--- NOTE | 2020-01-20 03:07 | Cardiology Progress Note ---
Subjective DATE OF SERVICE: Jan 19, 2020 Remains in atrial fibrillation; rates now controlled. Off amiodarone Full vent support via trach CXR: large left effusion Objective Last 24 Hour Vital Signs Date Time Temp Pulse Resp B/P (MAP) Pulse Ox O2 Delivery O2 Flow Rate FiO2 01/20/20 00:00 Mechanical Ventilator Mechanical Ventilator 01/20/20 00:00 97.7 63 16 146/86 (106) 100 01/19/20 23:28 64 01/19/20 22:55 61 24 40 01/19/20 20:00 97.9 59 16 140/60 (86) 100 01/19/20 20:00 40 01/19/20 20:00 Mechanical Ventilator Mechanical Ventilator 01/19/20 19:54 58 01/19/20 18:32 66 25 40 01/19/20 16:00 Mechanical Ventilator Mechanical Ventilator 01/19/20 16:00 97.3 56 16 125/55 (78) 100 01/19/20 15:23 46 01/19/20 15:00 66 17 40 01/19/20 12:20 56 01/19/20 12:00 98.1 63 20 104/65 (78) 98 01/19/20 12:00 Mechanical Ventilator Mechanical Ventilator 01/19/20 10:55 80 14 40 01/19/20 08:00 Mechanical Ventilator Mechanical Ventilator 01/19/20 08:00 56 01/19/20 07:05 56 20 40 01/19/20 04:00 97.7 52 18 110/52 (71) 95 01/19/20 04:00 Mechanical Ventilator Mechanical Ventilator 01/19/20 03:37 57 01/19/20 03:08 67 20 40 ROS: unchanged for 01/17/20 HEENT: Mechanically Ventilated, Thick Trach secretions RHYTHM: Afib LUNGS: diminished breath sounds - left, bilateral rhonchi CARDIAC: normal S1 and S2, irregularly irregular ABDOMEN: normal bowel sounds, non tender, soft, G-Tube intact EXTREMITIES: normal inspection, trace edema Laboratory Tests Test 01/19/20 03:51 01/19/20 04:00 01/19/20 05:48 01/19/20 09:30 White Blood Count 29.6 K/UL (4.8-10.8) *H Red Blood Count 2.39 M/UL (4.20-5.40) L Hemoglobin 7.0 G/DL (12.0-16.0) L Hematocrit 19.2 % (37.0-47.0) L Mean Corpuscular Volume 80 FL (80-99) Mean Corpuscular Hemoglobin 29.2 PG (27.0-31.0) Mean Corpuscular Hemoglobin Concent 36.3 G/DL (32.0-36.0) H Red Cell Distribution Width 14.4 % (11.6-14.8) Platelet Count 221 K/UL (150-450) Mean Platelet Volume 5.2 FL (6.5-10.1) L Neutrophils (%) (Auto) % (45.0-75.0) Lymphocytes (%) (Auto) % (20.0-45.0) Monocytes (%) (Auto) % (1.0-10.0) Eosinophils (%) (Auto) % (0.0-3.0) Basophils (%) (Auto) % (0.0-2.0) Differential Total Cells Counted 100 Neutrophils % (Manual) 84 % (45-75) H Lymphocytes % (Manual) 10 % (20-45) L Monocytes % (Manual) 6 % (1-10) Eosinophils % (Manual) 0 % (0-3) Basophils % (Manual) 0 % (0-2) Band Neutrophils 0 % (0-8) Platelet Estimate Adequate Platelet Morphology Normal Polychromasia 1+ Hypochromasia 1+ Anisocytosis 1+ Microcytosis 1+ Sodium Level 137 MMOL/L (136-145) 134 MMOL/L (136-145) L Potassium Level 4.1 MMOL/L (3.5-5.1) 3.9 MMOL/L (3.5-5.1) Chloride Level 98 MMOL/L (98-107) 96 MMOL/L (98-107) L Carbon Dioxide Level 20 MMOL/L (21-32) L 22 MMOL/L (21-32) Anion Gap 19 mmol/L (5-15) H 16 mmol/L (5-15) H Blood Urea Nitrogen 139 mg/dL (7-18) H 141 mg/dL (7-18) H Creatinine 4.6 MG/DL (0.55-1.30) H 4.7 MG/DL (0.55-1.30) H Estimat Glomerular Filtration Rate 10.2 mL/min (>60) 9.9 mL/min (>60) Glucose Level 126 MG/DL (74-106) H 126 MG/DL (74-106) H Uric Acid 7.3 MG/DL (2.6-7.2) H Calcium Level 8.4 MG/DL (8.5-10.1) L 8.2 MG/DL (8.5-10.1) L Phosphorus Level 7.5 MG/DL (2.5-4.9) H Magnesium Level 3.0 MG/DL (1.8-2.4) H Total Bilirubin 0.5 MG/DL (0.2-1.0) 0.4 MG/DL (0.2-1.0) Aspartate Amino Transf (AST/SGOT) 22 U/L (15-37) 20 U/L (15-37) Alanine Aminotransferase (ALT/SGPT) 9 U/L (12-78) L < 6 U/L (12-78) L Alkaline Phosphatase 184 U/L (46-116) H 188 U/L (46-116) H C-Reactive Protein, Quantitative 25.1 mg/dL (0.00-0.90) H Pro-B-Type Natriuretic Peptide > 87472 pg/mL (0-125) H Total Protein 6.1 G/DL (6.4-8.2) L 6.0 G/DL (6.4-8.2) L Albumin 2.1 G/DL (3.4-5.0) L 2.0 G/DL (3.4-5.0) L Globulin 4.0 g/dL 4.0 g/dL Albumin/Globulin Ratio 0.5 (1.0-2.7) L 0.5 (1.0-2.7) L Amylase Level 345 U/L (25-115) H Lipase > 2000 U/L (73-393) H Random Vancomycin Level 16.9 ug/mL Stool Occult Blood Positive (NEGATIVE) POC Whole Blood Glucose 114 MG/DL (74-106) H Test 01/19/20 12:19 01/19/20 18:21 01/19/20 23:35 POC Whole Blood Glucose 107 MG/DL (74-106) H Pending 85 MG/DL (74-106) Microbiology Date/Time Source Procedure Growth Status 01/19/20 04:00 Stool Clostridium difficile Toxin Assay - Final Complete 01/17/20 04:10 Blood Blood Culture - Preliminary NO GROWTH AFTER 24 HOURS Resulted Assessment/Plan Assessment/Plan Chronic respiratory failure with trach Severe sepsis PAFib with rapid ventric response. Ischemic cardiomyopathy - hx CABG and s/p NSTEMI in Dec 2019. Conduction system disease of the heart Hx of permanent pacemaker explant Acute on chronic systolic and diastolic CHF Pleural effusion Avoid amiodarone Reassess for beta flori therapy based on heart rate range. Anti-failure and anti-anginal regimen with titration Vent support Possible thorocentesis Abx per ID Continuous cardiac monitoring Deni Willams MD Jan 20, 2020 03:07
[2020-01-20 04:00] VITALS: BP 151/73
--- NOTE | 2020-01-20 06:59 | NUR ---
NURSE NOTES: received patient report from leslie rn. patient is on bed asleep. not in acute distress. on vent at prescribed rate. afebrile, noted hematuria. negative bm. SR-SB on the monitor.tube feedings off per dr dia. received 1 prbc yesterday. bed is low and locked for safety. will follow plan of care.
[2020-01-20 07:16] LABS: HEMATOCRIT 25.2 % (37.0-47.0); MEAN CORPUSCULAR VOLUME 81 FL (80-99); PLATELET COUNT 231 K/UL (150-450); RED BLOOD COUNT 3.12 M/UL (4.20-5.40); RED CELL DISTRIBUTION WIDTH 13.7 % (11.6-14.8)
[2020-01-20 07:17] LABS: WHITE BLOOD COUNT 26.3 K/UL (4.8-10.8)
[2020-01-20 07:30] LABS: ALANINE AMINOTRANSFERASE 14 U/L (12-78); ALBUMIN 2.3 G/DL (3.4-5.0); ALBUMIN/GLOBULIN RATIO 0.5 (1.0-2.7); ALKALINE PHOSPHATASE 203 U/L (46-116); AMYLASE 367 U/L (25-115); ANION GAP 21 mmol/L (5-15); ASPARTATE AMINO TRANSFERASE 24 U/L (15-37); BILIRUBIN,TOTAL 0.4 MG/DL (0.2-1.0); BLOOD UREA NITROGEN 143 mg/dL (7-18); CALCIUM 8.3 MG/DL (8.5-10.1); CARBON DIOXIDE 19 MMOL/L (21-32); CHLORIDE 93 MMOL/L (98-107); CREATININE 4.8 MG/DL (0.55-1.30); POTASSIUM 4.5 MMOL/L (3.5-5.1); SODIUM 133 MMOL/L (136-145)
[2020-01-20] MEDS: Aspirin Baby 81mg GT SCH (07:59)
[2020-01-20 08:00] VITALS: BP 136/63
[2020-01-20] MEDS ORDERED: Tubing IV Secondary IV ONE (08:33)
[2020-01-20] MEDS ORDERED: NS 275ml ONE (08:33)
--- NOTE | 2020-01-20 08:36 | General Progress Note ---
Subjective ROS Limited/Unobtainable: No Allergies: Coded Allergies: No Known Allergies (Unverified , 10/10/17) Objective Last 24 Hour Vital Signs Date Time Temp Pulse Resp B/P (MAP) Pulse Ox O2 Delivery O2 Flow Rate FiO2 01/20/20 08:05 136/63 01/20/20 07:51 Mechanical Ventilator Mechanical Ventilator 01/20/20 07:22 59 23 40 01/20/20 04:00 97.7 68 16 151/73 (99) 100 01/20/20 04:00 Mechanical Ventilator Mechanical Ventilator 01/20/20 03:37 63 01/20/20 02:44 66 26 40 01/20/20 00:00 Mechanical Ventilator Mechanical Ventilator 01/20/20 00:00 97.7 63 16 146/86 (106) 100 01/19/20 23:28 64 01/19/20 22:55 61 24 40 01/19/20 20:00 97.9 59 16 140/60 (86) 100 01/19/20 20:00 40 01/19/20 20:00 Mechanical Ventilator Mechanical Ventilator 01/19/20 19:54 58 01/19/20 18:32 66 25 40 01/19/20 16:00 Mechanical Ventilator Mechanical Ventilator 01/19/20 16:00 97.3 56 16 125/55 (78) 100 01/19/20 15:23 46 01/19/20 15:00 66 17 40 01/19/20 12:20 56 01/19/20 12:00 98.1 63 20 104/65 (78) 98 01/19/20 12:00 Mechanical Ventilator Mechanical Ventilator 01/19/20 10:55 80 14 40 Intake and Output 01/19/20 01/20/20 18:59 06:59 Intake Total 120 ml 50 ml Output Total 1000 ml Balance -880 ml 50 ml Free Water 15 ml 50 ml Tube Feeding 105 ml Output Urine Total 600 ml Other 400 ml # Bowel Movements 2 Laboratory Tests 01/19/20 09:30: Sodium Level 134L, Potassium Level 3.9, Chloride Level 96L, Carbon Dioxide Level 22, Anion Gap 16H, Blood Urea Nitrogen 141H, Creatinine 4.7H, Estimat Glomerular Filtration Rate 9.9, Glucose Level 126H, Calcium Level 8.2L, Total Bilirubin 0.4, Aspartate Amino Transf (AST/SGOT) 20, Alanine Aminotransferase (ALT/SGPT) < 6L, Alkaline Phosphatase 188H, Total Protein 6.0L, Albumin 2.0L, Globulin 4.0, Albumin/Globulin Ratio 0.5L 01/19/20 12:19: POC Whole Blood Glucose 107H 01/19/20 18:21: POC Whole Blood Glucose [Pending] 01/19/20 23:35: POC Whole Blood Glucose 85 01/20/20 03:40: White Blood Count 26.3*H, Red Blood Count 3.12L, Hemoglobin 9.0L, Hematocrit 25.2#L, Mean Corpuscular Volume 81, Mean Corpuscular Hemoglobin 29.0, Mean Corpuscular Hemoglobin Concent 35.8, Red Cell Distribution Width 13.7, Platelet Count 231, Mean Platelet Volume 5.4L, Neutrophils (%) (Auto) , Lymphocytes (%) (Auto) , Monocytes (%) (Auto) , Eosinophils (%) (Auto) , Basophils (%) (Auto) , Neutrophils % (Manual) [Pending], Lymphocytes % (Manual) [Pending], Platelet Estimate [Pending], Platelet Morphology [Pending], Sodium Level 133L, Potassium Level 4.5, Chloride Level 93L, Carbon Dioxide Level 19L, Anion Gap 21H, Blood Urea Nitrogen 143H, Creatinine 4.8H, Estimat Glomerular Filtration Rate 9.7, Glucose Level 75, Calcium Level 8.3L, Total Bilirubin 0.4, Aspartate Amino Transf (AST/SGOT) 24, Alanine Aminotransferase (ALT/SGPT) 14, Alkaline Phosphatase 203H, Pro-B-Type Natriuretic Peptide > 02660V, Total Protein 6.7, Albumin 2.3L, Globulin 4.4, Albumin/Globulin Ratio 0.5L, Amylase Level 367H, Lipase > 2000H 01/20/20 05:27: POC Whole Blood Glucose 84 Height (Feet): 5 Height (Inches): 6.00 Weight (Pounds): 150 General Appearance: no apparent distress EENT: normal ENT inspection Neck: supple Cardiovascular: normal rate Respiratory/Chest: decreased breath sounds Abdomen: hypoactive bowel sounds Extremities: non-tender Assessment/Plan Problem List: (1) Hx of CABG ICD Codes: Z95.1 - Presence of aortocoronary bypass graft SNOMED: 204087291, 043116329 (2) History of tracheostomy ICD Codes: Z98.890 - Other specified postprocedural states SNOMED: 866948147, 210617596 (3) PEG (percutaneous endoscopic gastrostomy) status ICD Codes: Z93.1 - Gastrostomy status SNOMED: 630919427, 261949373 (4) S/P aortic dissection repair ICD Codes: Z98.890 - Other specified postprocedural states SNOMED: 902412556, 523292963 (5) Renal failure ICD Codes: N19 - Unspecified kidney failure SNOMED: 86505877, 844611930 (6) Anemia ICD Codes: D64.9 - Anemia, unspecified SNOMED: 940662680 Assessment/Plan: not stable for GI procedures ppi blood transfusion fu labs EGD when more stable GT topical care low dose GTF tolerated fu nephrology HD per nephrology new hematuria repeat amylase and lipase recommend hospice Inder Arteaga MD Jan 20, 2020 08:36
--- NOTE | 2020-01-20 08:55 | NUR ---
NURSE NOTES: left a message to dr maier regarding micro result. that patient is + for gram pos cocci in clusters X1 bottle. awaitng callback and new order.
--- NOTE | 2020-01-20 09:02 | Infectious Diseases Prog Note ---
Assessment/Plan 49yo F with: AF Sepsis Leukocytosis Hypoxia on vent Pneumonia c/b L pleural effusion (recurrent, prior determined to be transudative) Volume overload, BNP >35,0000, likely 2/2 progressive CKD --> ESRD ?Pancreatitis, Lipase >2000 Acute anemia to 5s CONS bacteremia, ?contaminant Aflutter w/ RVR 01/13 BCx 2/2 +S. epi COVID PCR neg Flu neg CXR: Large left pleural effusion. Bilateral interstitial and airspace infiltrates versus edema MRSA nares neg 01/16 BCx NTD 01/17 BCx /2 +GPCs 01/18 Resp cx +GNR 01/18 C.dif neg 01/18 CXR: Similar opacification of the left hemithorax likely representing combination of pleural effusion with atelectasis versus pneumonia/edema. Decreased but persistent hazy opacity throughout the right lung may represent edema versus infectious/inflammatory process. 01/19 BCx p JAVIER on CKD On previous admission Sep-Oct 2019 required HD for short period Going to start HD this admission again R/o COVID 01/14 COVID PCR neg 12/29 neg at SNF per report H/o UTI 11/27 u/a wbc 30-40, nit neg, leuk +3; ucx ESBL P. mirablis, ESBL M. morganii 09/15/19 u/a wbc tnct, nit neg, leuk +3; ucx >100k MDR P. stuarti (S Ceftriaxone, Meropenem) 10/07 u/a wbc tnct, nit neg, leuk ; ucx >100k VRE 10/15/19 u/a wbc tnct; ucx >100k ESBL P. stuarti (S ertapenem, aztreonam) H/o transudative pleural effusion 11/28 Sp Thora (w: 169, PMN: 2%, L: 49% , LDH: 57, prot 2.5); cx Neg H/o PNA 10/15/19 Resp cx ESBL P. mirabilis, MDR P.a. (S only to Gent) 09/22 Resp cx + MDR PsA (S-gent; I-colistin; R-levofloxacin, Zosyn, angelo) 09/16/19 Sp cx ESBL P. mirablis H/o PPM site (pocket) infection and pocket abscess 2ry to S. epi-11/2018, sp >6weeks IV vancomycin 11/27 SP ABBIE: no evidence for vegetation on any of the valves 11/26/18 SP PPM removal: OR findings:The fibrous capsule enclosing the generator was then opened and there was a [id number] amount of yellowish fluid drainage. The generator was then removed.Atrial and ventricular leads were detached. The necrotic tissue of the pocket was then removed and the pocket was flushed with an antibiotic solution. Capsule, wound tissue and lead tip cx: Neg 2d echo: no vegetation seen US chest: 4.6 x 3.4 x 0.9 cm hypoechoic/anechoic area overlying left chest pacemaker power pack. This could represent either a discrete fluid collection or a focal area of very edematous tissue. Infected fluid pocket also possible. 11/18 Bcx / S. epi; 11/20 Bcx neg; 11/24 Bcx Neg; 11/27 Bcx Neg CAD s/p CABG GERD/gastritis Afib HTN Dysphagia sp GT Aortic dissection s/p repair 2018 S/p PPM Parkinson's Disease Schizophrenia Anxiety COPD Chronic resp failure s/p trach Hx of tracheal bleeding [place] resident ([facility]) VRE and MRSA colonized Plan: Cont meropenem #4 Cont vanco #6 given CONS bacteremia Repeat BCx today given BCx from 01/17 02/14 +GPCs F/u Resp cx 01/18, +GNRs Trend WBC Recommend volume removal given BNP >35k, agree with HD initiation ?Pancreatitis, lipase >2000, appreciate GI input 01/16 SP Zosyn #2 01/14 SP dex 10mg in ED 12/10 SP IV Gentamycin #10 12/07 SP Meropenem #10 12/01 SP IV Vancomycin #5 11/28 Sp Cefepime #2 and IV Gentamycin x1 Monitor CBC/CMP Monitor temp curve, hemodynamics Monitor resp status D/w RN Thank you for this consult. [facility] will continue to follow. Subjective Allergies: Coded Allergies: No Known Allergies (Unverified , 10/10/17) AF WBC 26, improving slowly NAD on vent Going to get HD today Bcx from 01/17 +GPCs Objective Last 24 Hour Vital Signs Date Time Temp Pulse Resp B/P (MAP) Pulse Ox O2 Delivery O2 Flow Rate FiO2 01/20/20 08:05 136/63 01/20/20 07:51 Mechanical Ventilator Mechanical Ventilator 01/20/20 07:22 59 23 40 01/20/20 04:00 97.7 68 16 151/73 (99) 100 01/20/20 04:00 Mechanical Ventilator Mechanical Ventilator 01/20/20 03:37 63 01/20/20 02:44 66 26 40 01/20/20 00:00 Mechanical Ventilator Mechanical Ventilator 01/20/20 00:00 97.7 63 16 146/86 (106) 100 01/19/20 23:28 64 01/19/20 22:55 61 24 40 01/19/20 20:00 97.9 59 16 140/60 (86) 100 01/19/20 20:00 40 01/19/20 20:00 Mechanical Ventilator Mechanical Ventilator 01/19/20 19:54 58 01/19/20 18:32 66 25 40 01/19/20 16:00 Mechanical Ventilator Mechanical Ventilator 01/19/20 16:00 97.3 56 16 125/55 (78) 100 01/19/20 15:23 46 01/19/20 15:00 66 17 40 01/19/20 12:20 56 01/19/20 12:00 98.1 63 20 104/65 (78) 98 01/19/20 12:00 Mechanical Ventilator Mechanical Ventilator 01/19/20 10:55 80 14 40 Height (Feet): 5 Height (Inches): 6.00 Weight (Pounds): 150 Gen: NAD HEENT: NCAT, +trach Pulm: BL chest rise on vent Abd: Non-distended, +PEG Ext: No c/c/e Skin: No visible rashes Neuro: Awake Microbiology Date/Time Source Procedure Growth Status 01/19/20 04:00 Stool Clostridium difficile Toxin Assay - Final Complete 01/19/20 04:00 Sputum Gram Stain - Final Resulted 01/19/20 04:00 Sputum Culture - Preliminary Gram Negative Bacillus 1 Resulted 01/18/20 18:15 Blood Blood Culture - Preliminary NO GROWTH AFTER 24 HOURS Resulted 01/18/20 18:00 Blood Blood Culture - Preliminary Resulted Laboratory Tests Test 01/19/20 09:30 01/19/20 12:19 01/19/20 18:21 01/19/20 23:35 Sodium Level 134 MMOL/L (136-145) L Potassium Level 3.9 MMOL/L (3.5-5.1) Chloride Level 96 MMOL/L (98-107) L Carbon Dioxide Level 22 MMOL/L (21-32) Anion Gap 16 mmol/L (5-15) H Blood Urea Nitrogen 141 mg/dL (7-18) H Creatinine 4.7 MG/DL (0.55-1.30) H Estimat Glomerular Filtration Rate 9.9 mL/min (>60) Glucose Level 126 MG/DL (74-106) H Calcium Level 8.2 MG/DL (8.5-10.1) L Total Bilirubin 0.4 MG/DL (0.2-1.0) Aspartate Amino Transf (AST/SGOT) 20 U/L (15-37) Alanine Aminotransferase (ALT/SGPT) < 6 U/L (12-78) L Alkaline Phosphatase 188 U/L (46-116) H Total Protein 6.0 G/DL (6.4-8.2) L Albumin 2.0 G/DL (3.4-5.0) L Globulin 4.0 g/dL Albumin/Globulin Ratio 0.5 (1.0-2.7) L POC Whole Blood Glucose 107 MG/DL (74-106) H Pending 85 MG/DL (74-106) Test 01/20/20 03:40 01/20/20 05:27 White Blood Count 26.3 K/UL (4.8-10.8) *H Red Blood Count 3.12 M/UL (4.20-5.40) L Hemoglobin 9.0 G/DL (12.0-16.0) L Hematocrit 25.2 % (37.0-47.0) #L Mean Corpuscular Volume 81 FL (80-99) Mean Corpuscular Hemoglobin 29.0 PG (27.0-31.0) Mean Corpuscular Hemoglobin Concent 35.8 G/DL (32.0-36.0) Red Cell Distribution Width 13.7 % (11.6-14.8) Platelet Count 231 K/UL (150-450) Mean Platelet Volume 5.4 FL (6.5-10.1) L Neutrophils (%) (Auto) % (45.0-75.0) Lymphocytes (%) (Auto) % (20.0-45.0) Monocytes (%) (Auto) % (1.0-10.0) Eosinophils (%) (Auto) % (0.0-3.0) Basophils (%) (Auto) % (0.0-2.0) Neutrophils % (Manual) Pending Lymphocytes % (Manual) Pending Platelet Estimate Pending Platelet Morphology Pending Sodium Level 133 MMOL/L (136-145) L Potassium Level 4.5 MMOL/L (3.5-5.1) Chloride Level 93 MMOL/L (98-107) L Carbon Dioxide Level 19 MMOL/L (21-32) L Anion Gap 21 mmol/L (5-15) H Blood Urea Nitrogen 143 mg/dL (7-18) H Creatinine 4.8 MG/DL (0.55-1.30) H Estimat Glomerular Filtration Rate 9.7 mL/min (>60) Glucose Level 75 MG/DL (74-106) Calcium Level 8.3 MG/DL (8.5-10.1) L Total Bilirubin 0.4 MG/DL (0.2-1.0) Aspartate Amino Transf (AST/SGOT) 24 U/L (15-37) Alanine Aminotransferase (ALT/SGPT) 14 U/L (12-78) Alkaline Phosphatase 203 U/L (46-116) H Pro-B-Type Natriuretic Peptide > 83672 pg/mL (0-125) H Total Protein 6.7 G/DL (6.4-8.2) Albumin 2.3 G/DL (3.4-5.0) L Globulin 4.4 g/dL Albumin/Globulin Ratio 0.5 (1.0-2.7) L Amylase Level 367 U/L (25-115) H Lipase > 2000 U/L (73-393) H POC Whole Blood Glucose 84 MG/DL (74-106) Current Medications Medications (Trade) Dose Ordered Sig/Penny Route PRN Reason Start Time Stop Time Status Last Admin Dose Admin Aspirin (ASA) 81 mg DAILY GT 01/20/20 09:00 03/05/20 08:59 Atorvastatin Calcium (Lipitor) 10 mg BEDTIME GT 01/17/20 21:00 04/16/20 20:59 01/19/20 20:14 Chlorhexidine Gluconate (Ling-Hex 2%) 1 applic DAILY@1999 TOPIC 01/17/20 20:00 04/16/20 19:59 01/19/20 20:14 Dextrose (Dextrose 50%) 25 ml Q30M PRN IV Hypoglycemia 01/15/20 22:15 04/14/20 22:14 Dextrose (Dextrose 50%) 50 ml Q30M PRN IV Hypoglycemia 01/15/20 22:15 04/14/20 22:14 Isosorbide Dinitrate (Isordil) 10 mg TID GT 01/20/20 09:00 02/19/20 08:59 01/20/20 08:05 Lansoprazole (Prevacid) 30 mg BID GT 01/19/20 18:00 02/18/20 17:59 01/20/20 08:04 Meropenem 500 mg/ Sodium Chloride 55 ml @ 110 mls/hr Q24H IVPB 01/17/20 10:30 01/22/20 10:29 01/19/20 10:58 Metoclopramide HCl (Reglan) 5 mg Q6H PRN IVP Nausea & Vomiting 01/15/20 22:15 02/14/20 22:14 Vancomycin HCl (Vanco pharmacy to dose) 1 ea DAILY PRN MISC Per rx protocol 01/15/20 22:15 02/14/20 22:14 Zinc Oxide (Zinc Oxide) 1 applic TIDPRN PRN TOPIC diogenes GT 01/16/20 13:15 04/15/20 13:14 01/16/20 14:55 Ro Pack M.D. Jan 20, 2020 09:02
--- NOTE | 2020-01-20 09:12 | NUR ---
RD ASSESSMENT & RECOMMENDATIONS SEE CARE ACTIVITY FOR COMPLETE ASSESSMENT DAILY ESTIMATED NEEDS: Needs based on Critical care, wound, renal dysfunction 56 kg abw 28-33 kcals/kg 8159-7031 total kcals W/ HD (1.5-2.0) g protein/kg 84-112 g total protein Fluid per MD NUTRITION DIAGNOSIS: * Swallowing difficulty R/T dysphagia, respiratory status as evidenced by vent dep via trach, GT Dep. * Increase kcal and pro needs r/t wound healing, renal dysfunction as evidenced by admitted w/ large, advanced sacral wound, previously stage 4, pending eval, admitted w/ JAVIER, pending HD. CURRENT TF: TF HELD (hematuria) ENTERAL NUTRITION RECOMMENDATIONS: Nepro @ 40ml/hr x 24 hrs + Prosource 1pkt QD to provide 960ml, 1728kcal, 78g+11g prot, 698ml free water * As medically appropriate, initiate TF on Nepro, rec goal rate fo 40ml/hr x 24 hrs * Add Prosource 1pkt QD to better meet increased protein needs (additional 11g prot) * Water flush per MD/ HOB over 30 degrees ADDITIONAL RECOMMENDATIONS: * Per SNF in NOV 2019: HT=63"/ Rec daily calibrated bedscale wt * Monitor for continuity of HD: non-tunneled cath placement ordered * Monitor lytes and renal fxn for improvement (Na low, K and phos elevated) * Wound care: add Nephrovite x 1, ZnSO4 220mg QD x 10 days Reynaldo BID via PEG (mix w/ 2-4 oz water) * Monitor BG closely for hypoglycemia while NPO (h/o DM, on Nacl 3% to correct hyponatremia, consider accuchecks + added D5)
[2020-01-20] MEDS: Meropenem 500 MG in NS 55 ML IVPB SCH (10:16)
[2020-01-20 12:00] VITALS: BP 156/72
--- NOTE | 2020-01-20 13:35 | Pulmonology Progress Note ---
Subjective ROS Limited/Unobtainable: Yes Interval Events: s/p 1 unit of pRBC Constitutional: Reports: no symptoms HEENT: Repors: no symptoms Respiratory: Reports: no symptoms Cardiovascular: Reports: no symptoms Gastrointestinal/Abdominal: Reports: no symptoms Allergies: Coded Allergies: No Known Allergies (Unverified , 10/10/17) All Systems: reviewed and negative except above Objective Last 24 Hour Vital Signs Date Time Temp Pulse Resp B/P (MAP) Pulse Ox O2 Delivery O2 Flow Rate FiO2 01/20/20 12:00 Mechanical Ventilator Mechanical Ventilator 01/20/20 12:00 97.2 61 24 156/72 (100) 97 01/20/20 11:46 136/63 01/20/20 11:40 59 01/20/20 11:02 49 17 40 01/20/20 08:05 136/63 01/20/20 08:00 97.0 61 22 136/63 (87) 100 01/20/20 08:00 55 01/20/20 07:51 Mechanical Ventilator Mechanical Ventilator 01/20/20 07:22 59 23 40 01/20/20 04:00 97.7 68 16 151/73 (99) 100 01/20/20 04:00 Mechanical Ventilator Mechanical Ventilator 01/20/20 03:37 63 01/20/20 02:44 66 26 40 01/20/20 00:00 Mechanical Ventilator Mechanical Ventilator 01/20/20 00:00 97.7 63 16 146/86 (106) 100 01/19/20 23:28 64 01/19/20 22:55 61 24 40 01/19/20 20:00 97.9 59 16 140/60 (86) 100 01/19/20 20:00 40 01/19/20 20:00 Mechanical Ventilator Mechanical Ventilator 01/19/20 19:54 58 01/19/20 18:32 66 25 40 01/19/20 16:00 Mechanical Ventilator Mechanical Ventilator 01/19/20 16:00 97.3 56 16 125/55 (78) 100 01/19/20 15:23 46 01/19/20 15:00 66 17 40 Intake and Output 01/19/20 01/20/20 19:00 07:00 Intake Total 85 ml 50 ml Output Total 800 ml 200 ml Balance -715 ml -150 ml Free Water 15 ml 50 ml Tube Feeding 70 ml Output Urine Total 400 ml Other 400 ml 200 ml # Bowel Movements 1 Objective 01/20/2020 tracheostomy site clean, vent dependent patient, no leakage noted General Appearance: no acute distress HEENT: normocephalic, other - trach Respiratory: lungs clear Cardiovascular: normal rate, regular rhythm Abdomen: soft, non tender Genitourinary: other - Norman Extremities: other - trace edema Microbiology Date/Time Source Procedure Growth Status 01/19/20 04:00 Stool Clostridium difficile Toxin Assay - Final Complete 01/19/20 04:00 Sputum Gram Stain - Final Resulted 01/19/20 04:00 Sputum Culture - Preliminary Gram Negative Bacillus 1 Resulted 01/18/20 18:15 Blood Blood Culture - Preliminary NO GROWTH AFTER 24 HOURS Resulted 01/18/20 18:00 Blood Blood Culture - Preliminary Resulted Laboratory Tests 01/19/20 18:21: POC Whole Blood Glucose [Pending] 01/19/20 23:35: POC Whole Blood Glucose 85 01/20/20 03:40: White Blood Count 26.3*H, Red Blood Count 3.12L, Hemoglobin 9.0L, Hematocrit 25.2#L, Mean Corpuscular Volume 81, Mean Corpuscular Hemoglobin 29.0, Mean Corpuscular Hemoglobin Concent 35.8, Red Cell Distribution Width 13.7, Platelet Count 231, Mean Platelet Volume 5.4L, Neutrophils (%) (Auto) , Lymphocytes (%) (Auto) , Monocytes (%) (Auto) , Eosinophils (%) (Auto) , Basophils (%) (Auto) , Differential Total Cells Counted 100, Neutrophils % (Manual) 87H, Lymphocytes % (Manual) 8L, Monocytes % (Manual) 5, Eosinophils % (Manual) 0, Basophils % (Manual) 0, Band Neutrophils 0, Platelet Estimate Adequate, Platelet Morphology Normal, Polychromasia 1+, Hypochromasia 1+, Anisocytosis 1+, Sodium Level 133L, Potassium Level 4.5, Chloride Level 93L, Carbon Dioxide Level 19L, Anion Gap 21H , Blood Urea Nitrogen 143H, Creatinine 4.8H, Estimat Glomerular Filtration Rate 9.7, Glucose Level 75, Calcium Level 8.3L, Phosphorus Level 7.8H, Total Bilirubin 0.4, Aspartate Amino Transf (AST/SGOT) 24, Alanine Aminotransferase (ALT/SGPT) 14, Alkaline Phosphatase 203H, Pro-B-Type Natriuretic Peptide > 93352X, Total Protein 6.7, Albumin 2.3L, Globulin 4.4, Albumin/Globulin Ratio 0.5L, Amylase Level 367H, Lipase > 2000H 01/20/20 05:27: POC Whole Blood Glucose 84 01/20/20 10:52: POC Whole Blood Glucose 71L Current Medications Medications (Trade) Dose Ordered Sig/Penny Route PRN Reason Start Time Stop Time Status Last Admin Dose Admin Aspirin (ASA) 81 mg DAILY GT 01/20/20 09:00 03/05/20 08:59 Atorvastatin Calcium (Lipitor) 10 mg BEDTIME GT 01/17/20 21:00 04/16/20 20:59 01/19/20 20:14 Chlorhexidine Gluconate (Ling-Hex 2%) 1 applic DAILY@2000 TOPIC 01/17/20 20:00 04/16/20 19:59 01/19/20 20:14 Dextrose (Dextrose 50%) 25 ml Q30M PRN IV Hypoglycemia 01/15/20 22:15 04/14/20 22:14 Dextrose (Dextrose 50%) 50 ml Q30M PRN IV Hypoglycemia 01/15/20 22:15 04/14/20 22:14 Isosorbide Dinitrate (Isordil) 10 mg TID GT 01/20/20 09:00 02/19/20 08:59 01/20/20 11:46 Lansoprazole (Prevacid) 30 mg BID GT 01/19/20 18:00 02/18/20 17:59 01/20/20 08:04 Meropenem 500 mg/ Sodium Chloride 55 ml @ 110 mls/hr Q24H IVPB 01/17/20 10:30 01/22/20 10:29 01/20/20 10:16 Metoclopramide HCl (Reglan) 5 mg Q6H PRN IVP Nausea & Vomiting 01/15/20 22:15 02/14/20 22:14 Vancomycin HCl (Vanco pharmacy to dose) 1 ea DAILY PRN MISC Per rx protocol 01/15/20 22:15 02/14/20 22:14 Zinc Oxide (Zinc Oxide) 1 applic TIDPRN PRN TOPIC diogenes GT 01/16/20 13:15 04/15/20 13:14 01/16/20 14:55 Assessment/Plan Assessment/Plan 1. Large left effusion. - Consider thoracentesis; however she is saturating well on 40% FiO2. We will hold off for now. 2. Chronic respiratory failure. - on trach, current setting: AC 14, VT 500, FiO2 40%, PEEP 5 - Cont AC mode - Currently saturating at 99% 3. Sepsis. 4. Anemia - s/p 1 unit pRBC - Hgb 7 -> 9; hemodialysis scheduled today Broad-spectrum antibiotics. We will follow carefully. Pulmonary hygiene. DVT and GI prophylaxes. The care for this patient was discussed with my supervising physician TIme spent for this case was approximately 31 minutes The history of Isabella Gillis has been reviewed and management options for her have been examined and discussed by Elijah Stephen. I have personally examined and interviewed the patient. Cruz Wilson Jan 20, 2020 13:35 Elijah Stephen MD Jan 20, 2020 17:29
--- NOTE | 2020-01-20 14:09 | Nephrology Progress Note ---
Assessment/Plan Problem List: (1) ARF (acute renal failure) (2) Pacemaker (3) Sepsis (4) Hyponatremia Assessment (1) JAVIER (acute kidney injury) (2) Renal failure (ARF), acute on chronic (3) Feeding by G-tube (4) Tracheostomy in place (5) Electrolyte imbalance, hyponatremia (6) Anemia, severe (7) Respiratory failure, acute and chronic (8) Elevated lipase, pancreatitis (9) Elevated troponin I (10) Sepsis Plan January 19: Due for dialysis today. Labs reviewed. Continue her current management. Continue to monitor renal parameters and electrolytes. January 18: Dialyzed yesterday. Labs reviewed. Renal parameters electrolytes much improved. Dialysis again tomorrow. Continue rest. January 17: Dialyzed this morning. Labs reviewed. Renal parameters and electrolyte abnormalities improved. Discussed with RN. Continue per consultants. January 16: Dialyzed yesterday. Labs improved. Next dialysis tomorrow. Continue per consultants. January 15: Patient to have dialysis catheter. Emergency dialysis for correction of uremia and electrolyte imbalances Antibiotics Transfusion Continue to monitor renal parameters Per orders Discussed with RN Subjective ROS Limited/Unobtainable: Yes Objective Objective Last 24 Hour Vital Signs Date Time Temp Pulse Resp B/P (MAP) Pulse Ox O2 Delivery O2 Flow Rate FiO2 01/20/20 12:00 Mechanical Ventilator Mechanical Ventilator 01/20/20 12:00 97.2 61 24 156/72 (100) 97 01/20/20 11:46 136/63 01/20/20 11:40 59 01/20/20 11:02 49 17 40 01/20/20 08:05 136/63 01/20/20 08:00 97.0 61 22 136/63 (87) 100 01/20/20 08:00 55 01/20/20 07:51 Mechanical Ventilator Mechanical Ventilator 01/20/20 07:22 59 23 40 01/20/20 04:00 97.7 68 16 151/73 (99) 100 01/20/20 04:00 Mechanical Ventilator Mechanical Ventilator 01/20/20 03:37 63 01/20/20 02:44 66 26 40 01/20/20 00:00 Mechanical Ventilator Mechanical Ventilator 01/20/20 00:00 97.7 63 16 146/86 (106) 100 01/19/20 23:28 64 01/19/20 22:55 61 24 40 01/19/20 20:00 97.9 59 16 140/60 (86) 100 01/19/20 20:00 40 01/19/20 20:00 Mechanical Ventilator Mechanical Ventilator 01/19/20 19:54 58 01/19/20 18:32 66 25 40 01/19/20 16:00 Mechanical Ventilator Mechanical Ventilator 01/19/20 16:00 97.3 56 16 125/55 (78) 100 01/19/20 15:23 46 01/19/20 15:00 66 17 40 Intake and Output 01/19/20 01/20/20 19:00 07:00 Intake Total 85 ml 50 ml Output Total 800 ml 200 ml Balance -715 ml -150 ml Free Water 15 ml 50 ml Tube Feeding 70 ml Output Urine Total 400 ml Other 400 ml 200 ml # Bowel Movements 1 Current Medications Medications (Trade) Dose Ordered Sig/Penny Route PRN Reason Start Time Stop Time Status Last Admin Dose Admin Aspirin (ASA) 81 mg DAILY GT 01/20/20 09:00 03/05/20 08:59 Atorvastatin Calcium (Lipitor) 10 mg BEDTIME GT 01/17/20 21:00 04/16/20 20:59 01/19/20 20:14 Chlorhexidine Gluconate (Ling-Hex 2%) 1 applic DAILY@2000 TOPIC 01/17/20 20:00 04/16/20 19:59 01/19/20 20:14 Dextrose (Dextrose 50%) 25 ml Q30M PRN IV Hypoglycemia 01/15/20 22:15 04/14/20 22:14 Dextrose (Dextrose 50%) 50 ml Q30M PRN IV Hypoglycemia 01/15/20 22:15 04/14/20 22:14 Isosorbide Dinitrate (Isordil) 10 mg TID GT 01/20/20 09:00 02/19/20 08:59 01/20/20 11:46 Lansoprazole (Prevacid) 30 mg BID GT 01/19/20 18:00 02/18/20 17:59 01/20/20 08:04 Meropenem 500 mg/ Sodium Chloride 55 ml @ 110 mls/hr Q24H IVPB 01/17/20 10:30 01/22/20 10:29 01/20/20 10:16 Metoclopramide HCl (Reglan) 5 mg Q6H PRN IVP Nausea & Vomiting 01/15/20 22:15 02/14/20 22:14 Vancomycin HCl (Vanco pharmacy to dose) 1 ea DAILY PRN MISC Per rx protocol 01/15/20 22:15 02/14/20 22:14 Zinc Oxide (Zinc Oxide) 1 applic TIDPRN PRN TOPIC diogenes GT 01/16/20 13:15 04/15/20 13:14 01/16/20 14:55 Laboratory Tests 01/19/20 18:21: POC Whole Blood Glucose [Pending] 01/19/20 23:35: POC Whole Blood Glucose 85 01/20/20 03:40: White Blood Count 26.3*H, Red Blood Count 3.12L, Hemoglobin 9.0L, Hematocrit 25.2#L, Mean Corpuscular Volume 81, Mean Corpuscular Hemoglobin 29.0, Mean Corpuscular Hemoglobin Concent 35.8, Red Cell Distribution Width 13.7, Platelet Count 231, Mean Platelet Volume 5.4L, Neutrophils (%) (Auto) , Lymphocytes (%) (Auto) , Monocytes (%) (Auto) , Eosinophils (%) (Auto) , Basophils (%) (Auto) , Differential Total Cells Counted 100, Neutrophils % (Manual) 87H, Lymphocytes % (Manual) 8L, Monocytes % (Manual) 5, Eosinophils % (Manual) 0, Basophils % (Manual) 0, Band Neutrophils 0, Platelet Estimate Adequate, Platelet Morphology Normal, Polychromasia 1+, Hypochromasia 1+, Anisocytosis 1+, Sodium Level 133L, Potassium Level 4.5, Chloride Level 93L, Carbon Dioxide Level 19L, Anion Gap 21H , Blood Urea Nitrogen 143H, Creatinine 4.8H, Estimat Glomerular Filtration Rate 9.7, Glucose Level 75, Calcium Level 8.3L, Phosphorus Level 7.8H, Total Bilirubin 0.4, Aspartate Amino Transf (AST/SGOT) 24, Alanine Aminotransferase (A LT/SGPT) 14, Alkaline Phosphatase 203H, Pro-B-Type Natriuretic Peptide > 47465V, Total Protein 6.7, Albumin 2.3L, Globulin 4.4, Albumin/Globulin Ratio 0.5L, Amylase Level 367H, Lipase > 2000H 01/20/20 05:27: POC Whole Blood Glucose 84 01/20/20 10:52: POC Whole Blood Glucose 71L Height (Feet): 5 Height (Inches): 6.00 Weight (Pounds): 150 General Appearance: no apparent distress, lethargic EENT: other - Trached to mechanical ventilation Cardiovascular: bradycardia Respiratory/Chest: decreased breath sounds Abdomen: distended Johnny Houston MD Jan 20, 2020 14:09
--- NOTE | 2020-01-20 15:55 | NUR ---
CASE MANAGEMENT:REVIEW 01/20/20 SI: SEPSIS. RENAL FAILURE TRACH/VENT 97.2 61 24 156/72 97% ON VENT SUPPORT W/40% FIO2 WBC+26.3 H/H-9.0/25.2 BUN+143 CR+4.8 IS: IV MEROPENEM Q24 ISORDIL GT TID ASA GT QD : STEP DOWN UNIT DCP: FROM [facility]
[2020-01-20 16:00] VITALS: BP 144/74
--- NOTE | 2020-01-20 16:40 | Surgery Progress Note ---
Surgery Progress Note Subjective Procedure Performed Left femoral temporary hemodialysis catheter insertion Symptoms: improved Additional Comments no acute events comfortable on vent no n/v Objective Last 24 Hour Vital Signs Date Time Temp Pulse Resp B/P (MAP) Pulse Ox O2 Delivery O2 Flow Rate FiO2 01/20/20 16:00 Mechanical Ventilator Mechanical Ventilator 01/20/20 16:00 97.3 59 23 144/74 (97) 98 01/20/20 15:36 60 22 40 01/20/20 12:00 Mechanical Ventilator Mechanical Ventilator 01/20/20 12:00 97.2 61 24 156/72 (100) 97 01/20/20 11:46 136/63 01/20/20 11:40 59 01/20/20 11:02 49 17 40 01/20/20 08:05 136/63 01/20/20 08:00 97.0 61 22 136/63 (87) 100 01/20/20 08:00 55 01/20/20 07:51 Mechanical Ventilator Mechanical Ventilator 01/20/20 07:22 59 23 40 01/20/20 04:00 97.7 68 16 151/73 (99) 100 01/20/20 04:00 Mechanical Ventilator Mechanical Ventilator 01/20/20 03:37 63 01/20/20 02:44 66 26 40 01/20/20 00:00 Mechanical Ventilator Mechanical Ventilator 01/20/20 00:00 97.7 63 16 146/86 (106) 100 01/19/20 23:28 64 01/19/20 22:55 61 24 40 01/19/20 20:00 97.9 59 16 140/60 (86) 100 01/19/20 20:00 40 01/19/20 20:00 Mechanical Ventilator Mechanical Ventilator 01/19/20 19:54 58 01/19/20 18:32 66 25 40 I&O Intake and Output 01/19/20 01/20/20 19:00 07:00 Intake Total 85 ml 50 ml Output Total 800 ml 200 ml Balance -715 ml -150 ml Free Water 15 ml 50 ml Tube Feeding 70 ml Output Urine Total 400 ml Other 400 ml 200 ml # Bowel Movements 1 Dressing: saturated Cardiovascular: RSR Respiratory: decreased breath sounds Abdomen: non-tender, present bowel sounds Extremities: edema, no tenderness, no cyanosis Laboratory Tests Test 01/19/20 18:21 01/19/20 23:35 01/20/20 03:40 01/20/20 05:27 POC Whole Blood Glucose Pending 85 MG/DL (74-106) 84 MG/DL (74-106) White Blood Count 26.3 K/UL (4.8-10.8) *H Red Blood Count 3.12 M/UL (4.20-5.40) L Hemoglobin 9.0 G/DL (12.0-16.0) L Hematocrit 25.2 % (37.0-47.0) #L Mean Corpuscular Volume 81 FL (80-99) Mean Corpuscular Hemoglobin 29.0 PG (27.0-31.0) Mean Corpuscular Hemoglobin Concent 35.8 G/DL (32.0-36.0) Red Cell Distribution Width 13.7 % (11.6-14.8) Platelet Count 231 K/UL (150-450) Mean Platelet Volume 5.4 FL (6.5-10.1) L Neutrophils (%) (Auto) % (45.0-75.0) Lymphocytes (%) (Auto) % (20.0-45.0) Monocytes (%) (Auto) % (1.0-10.0) Eosinophils (%) (Auto) % (0.0-3.0) Basophils (%) (Auto) % (0.0-2.0) Differential Total Cells Counted 100 Neutrophils % (Manual) 87 % (45-75) H Lymphocytes % (Manual) 8 % (20-45) L Monocytes % (Manual) 5 % (1-10) Eosinophils % (Manual) 0 % (0-3) Basophils % (Manual) 0 % (0-2) Band Neutrophils 0 % (0-8) Platelet Estimate Adequate Platelet Morphology Normal Polychromasia 1+ Hypochromasia 1+ Anisocytosis 1+ Sodium Level 133 MMOL/L (136-145) L Potassium Level 4.5 MMOL/L (3.5-5.1) Chloride Level 93 MMOL/L (98-107) L Carbon Dioxide Level 19 MMOL/L (21-32) L Anion Gap 21 mmol/L (5-15) H Blood Urea Nitrogen 143 mg/dL (7-18) H Creatinine 4.8 MG/DL (0.55-1.30) H Estimat Glomerular Filtration Rate 9.7 mL/min (>60) Glucose Level 75 MG/DL (74-106) Calcium Level 8.3 MG/DL (8.5-10.1) L Phosphorus Level 7.8 MG/DL (2.5-4.9) H Total Bilirubin 0.4 MG/DL (0.2-1.0) Aspartate Amino Transf (AST/SGOT) 24 U/L (15-37) Alanine Aminotransferase (ALT/SGPT) 14 U/L (12-78) Alkaline Phosphatase 203 U/L (46-116) H Pro-B-Type Natriuretic Peptide > 06167 pg/mL (0-125) H Total Protein 6.7 G/DL (6.4-8.2) Albumin 2.3 G/DL (3.4-5.0) L Globulin 4.4 g/dL Albumin/Globulin Ratio 0.5 (1.0-2.7) L Amylase Level 367 U/L (25-115) H Lipase > 2000 U/L (73-393) H Test 01/20/20 10:52 POC Whole Blood Glucose 71 MG/DL (74-106) L Plan Problems: (1) Dehydration (2) Acidosis (3) Depression (4) Pleural effusion (5) Respiratory failure (6) Schizophrenia (7) Hypoxia (8) UTI (urinary tract infection) (9) Pneumonia (10) NSTEMI (non-ST elevated myocardial infarction) (11) Tracheostomy in place (12) Feeding by G-tube (13) JAVIER (acute kidney injury) (14) Acute encephalopathy (15) Sacral decubitus ulcer, stage IV (16) Chronic respiratory failure (17) Ascites (18) Bacteremia (19) Hypernatremia (20) Proteinuria (21) Electrolyte imbalance (22) ACS (acute coronary syndrome) (23) Aortic dissection, thoracic (24) Respiratory failure, acute and chronic (25) JAVIER (acute kidney injury) (26) Abrasion of lip, initial encounter (27) COPD with exacerbation (28) Elevated alkaline phosphatase level (29) Renal failure (ARF), acute on chronic (30) HCAP (healthcare-associated pneumonia) (31) GT CLOGGED (32) Elevated lipase (33) Pancreatitis (34) Elevated troponin (35) Hypokalemia (36) Hyponatremia (37) Anemia (38) Renal failure (39) ARF (acute renal failure) (40) Pacemaker (41) Sepsis Assessment & Plan: leukocytosis anemia on HD renal insufficiency wounds addressed pt presented on admission with Tracheostomy ,GT and Multiple Pressure Injuries. Skin assessment of skin under tracheal collar without evidence of skin breakdown. Peristomal GT site excoriated.Moderate amt of dark red sanguineous exudate. Full Thickness Sacral Pressure Injury with undermined borders (L)9 cm x (W)12cm x (D)1.8cm,Undermining clockwise8-9 by 2.2cm @1o'clock,undermining clockwise 1-4 by 1.9 @ 9'oclock Scattered necrotic tissue within wound bed. Borders are loose and necrotic with marginal erythema to outer perimeter of wound. NO elevation in skin temp noted periwound. Wound is malodorous. Small amt Brown exudate noted. Resolving Pressure Injury L Ischium(L)1.5cm x (W)1.5cm. Base of wound is 80% pink epithelial with an area that is moist and pink. NO odor or exudate noted. Bilat foot-drop noted. L Heel is boggy with non-blanchable erythema(L)4cm x (W)4cm. R heel is boggy with non-Blanchable erythema(L)5cm x (W)6cm. Tx.Plan: Cleanse sacral wound with Dakin's 0.125% annie. Loosely pack with Dakin's moistened Kerlix(Attention to undermined borders). Apply Moisture Barrier Paste periwound. Cover with Optifoam drsg. Change Daily and PRN. Apply Cavilon Skin Barrier to R and L Hels. Cover each heel with Optifoam drsg. Change every 7 days and prn. Reposition at least every 2hours or as tolerated. Off-load heels with Pillow. APM/JENNIFER MAttress overlay DAILY ESTIMATED NEEDS: Needs based on Critical care, wound, renal dysfunction 56 kg abw 28-33 kcals/kg 9742-7192 total kcals W/ HD (1.5-2.0) g protein/kg 84-112 g total protein Fluid per MD mL/kg . total fluid mLs NUTRITION DIAGNOSIS: * Swallowing difficulty R/T dysphagia, respiratory status as evidenced by vent dep via trach, GT Dep. * Increase kcal and pro needs r/t wound healing, renal dysfunction as evidenced by admitted w/ large, advanced sacral wound, previously stage 4, pending eval, admitted w/ JAVIER, pending HD. CURRENT TF:NPO ENTERAL NUTRITION RECOMMENDATIONS: Nepro @ 40ml/hr x 24 hrs + Prosource 1pkt QD to provide 960ml, 1728kcal, 78g+11g prot, 698ml free water * As medically appropriate, initiate TF on Nepro, rec goal rate fo 40ml/hr x 24 hrs * Add Prosource 1pkt QD to better meet increased protein needs (additional 11g prot) * Water flush per MD/ HOB over 30 degrees ADDITIONAL RECOMMENDATIONS: * Per SNF in NOV 2019: HT=63"/ Rec daily calibrated bedscale wt * Monitor for continuity of HD: non-tunneled cath placement ordered * Monitor lytes and renal fxn for improvement (Na low, K and phos elevated) * Wound care: add Nephrovite x 1, ZnSO4 220mg QD x 10 days Reynaldo BID via PEG (mix w/ 2-4 oz water) * Monitor BG closely for hypoglycemia while NPO (h/o DM, on Nacl 3% to correct hyponatremia, consider accuchecks) (42) Hyponatremia Lane Saavedra Jan 20, 2020 16:40
--- NOTE | 2020-01-20 16:55 | NUR ---
INSURANCE CLINICALS/REVIEW FAXED TO (01/18-01/19) FX [phone]
--- NOTE | 2020-01-20 19:15 | NUR ---
NURSE HAND-OFF REPORT: Important Events on Shift:stable Patient Status: fc Diet: tube feeds, nepro 35 Pending Orders: [] Pending Results/Labs:[] Pending MD notification:[] Latest Vital Signs: Temperature 97.3 , Pulse 58 , B/P 144 /74 , Respiratory Rate 23 , O2 SAT 98 , Mechanical Ventilator, O2 Flow Rate . Vital Sign Comment: stable EKG Rhythm: Sinus Bradycardia Rhythm change?: N MD Notified?: Gabriel -Dr. Екатерина HATFIELD Response: Order Received& Read Back Latest Chavarria Fall Score: 70 Fall Risk: High Risk Safety Measures: Call light Within Reach, Bed Alarm Zone 2, Side Rails Side Rails x2, Bed position Low and Locked. Fall Precautions: Yellow Socks Report given to seun ramesh.
--- NOTE | 2020-01-20 19:20 | NUR ---
NURSE NOTES: Got report from Cornelia ZIMMERMAN. Pt resting in bed comfortably no s/s of distress or discomfort noted. SR at 86 on 5 lead athletic monitor. Pt is arousable, opens eyes and tracks. Trach to vent S7, AC 14, TV 500, FiO2 40% and PEEP 8 saturating at 97%. Pt has PEG tube w/ Nepro @35 no residual noted. Pt has Right AC 20g and left Wrist 22 G IV lines intact, patent and asymptomatic. With left femoral arden catheter intact and asymptomatic. Dressing is clean and dry. with FC to urine bag draining hematuria. Needs were attended. Bed rails are up and wheels are locked. Continue to monitor the patient.
[2020-01-20 20:00] VITALS: BP 124/66
--- NOTE | 2020-01-20 20:13 | NUR ---
NURSE NOTES: Dialysis finished per nurse Santiago. 2L out. Pt in stable condition. Continue to monitor.
[2020-01-20] MEDS: Dyna-Hex 2% Top Sol 2oz TOPIC SCH (22:11)
--- NOTE | 2020-01-20 23:48 | General Progress Note ---
Subjective Constitutional: Reports: no symptoms HEENT: Reports: no symptoms Cardiovascular: Reports: no symptoms Respiratory: Reports: no symptoms Gastrointestinal/Abdominal: Reports: no symptoms Genitourinary: Reports: no symptoms Neurologic/Psychiatric: Reports: no symptoms, other - Less depressed less anxious more attentive with longer attention span Endocrine: Reports: no symptoms Hematologic/Lymphatic: Reports: no symptoms Allergies: Coded Allergies: No Known Allergies (Unverified , 10/10/17) Objective Last 24 Hour Vital Signs Date Time Temp Pulse Resp B/P (MAP) Pulse Ox O2 Delivery O2 Flow Rate FiO2 01/20/20 23:06 69 17 40 01/20/20 19:18 86 25 40 01/20/20 17:47 144/74 01/20/20 16:00 58 01/20/20 16:00 Mechanical Ventilator Mechanical Ventilator 01/20/20 16:00 97.3 59 23 144/74 (97) 98 01/20/20 15:36 60 22 40 01/20/20 12:00 Mechanical Ventilator Mechanical Ventilator 01/20/20 12:00 97.2 61 24 156/72 (100) 97 01/20/20 11:46 136/63 01/20/20 11:40 59 01/20/20 11:02 49 17 40 01/20/20 08:05 136/63 01/20/20 08:00 97.0 61 22 136/63 (87) 100 01/20/20 08:00 55 01/20/20 07:51 Mechanical Ventilator Mechanical Ventilator 01/20/20 07:22 59 23 40 01/20/20 04:00 97.7 68 16 151/73 (99) 100 01/20/20 04:00 Mechanical Ventilator Mechanical Ventilator 01/20/20 03:37 63 01/20/20 02:44 66 26 40 01/20/20 00:00 Mechanical Ventilator Mechanical Ventilator 01/20/20 00:00 97.7 63 16 146/86 (106) 100 Intake and Output 01/19/20 01/20/20 19:00 07:00 Intake Total 485 ml 50 ml Output Total 400 ml 200 ml Balance 85 ml -150 ml Free Water 15 ml 50 ml Tube Feeding 70 ml Other 400 ml Output Urine Total 400 ml Other 200 ml # Bowel Movements 1 Laboratory Tests 01/20/20 03:40: White Blood Count 26.3*H, Red Blood Count 3.12L, Hemoglobin 9.0L, Hematocrit 25.2#L, Mean Corpuscular Volume 81, Mean Corpuscular Hemoglobin 29.0, Mean Corpuscular Hemoglobin Concent 35.8, Red Cell Distribution Width 13.7, Platelet Count 231, Mean Platelet Volume 5.4L, Neutrophils (%) (Auto) , Lymphocytes (%) (Auto) , Monocytes (%) (Auto) , Eosinophils (%) (Auto) , Basophils (%) (Auto) , Differential Total Cells Counted 100, Neutrophils % (Manual) 87H, Lymphocytes % (Manual) 8L, Monocytes % (Manual) 5, Eosinophils % (Manual) 0, Basophils % (Manual) 0, Band Neutrophils 0, Platelet Estimate Adequate, Platelet Morphology Normal, Polychromasia 1+, Hypochromasia 1+, Anisocytosis 1+, Sodium Level 133L, Potassium Level 4.5, Chloride Level 93L, Carbon Dioxide Level 19L, Anion Gap 21H , Blood Urea Nitrogen 143H, Creatinine 4.8H, Estimat Glomerular Filtration Rate 9.7, Glucose Level 75, Calcium Level 8.3L, Phosphorus Level 7.8H, Total Bilirubin 0.4, Aspartate Amino Transf (AST/SGOT) 24, Alanine Aminotransferase (ALT/SGPT) 14, Alkaline Phosphatase 203H, Pro-B-Type Natriuretic Peptide > 86614X, Total Protein 6.7, Albumin 2.3L, Globulin 4.4, Albumin/Globulin Ratio 0.5L, Amylase Level 367H, Lipase > 2000H 01/20/20 05:27: POC Whole Blood Glucose 84 01/20/20 10:52: POC Whole Blood Glucose 71L 01/20/20 17:00: POC Whole Blood Glucose 87 Height (Feet): 5 Height (Inches): 6.00 Weight (Pounds): 150 General Appearance: no apparent distress, alert, other - Eye contact and near normal attention span EENT: normal ENT inspection Neck: normal alignment, supple Cardiovascular: normal peripheral pulses, normal rate, regular rhythm, no gallop/murmur, no JVD Respiratory/Chest: lungs clear, normal breath sounds, no respiratory distress, no accessory muscle use Abdomen: normal bowel sounds, non tender, soft, no organomegaly, no mass Extremities: non-tender Neurologic: hot repairman II-XII grossly normal, alert, normal mood/affect, other - Respond by head nods Assessment/Plan Status Narrative Patient is substantially more awake more alert febrile and hemodynamically stable she will form eye contact and appears to be attentive she was transferred yesterday from ICU to [facility] she is awake alert oriented leukocytosis quite considerable however BUN/creatinine electrolytes are normal repeat laboratory tests will be done in a.m. Lucas Canales MD, MD Jan 20, 2020 23:48
[2020-01-21] VITALS: BP 145/71
--- NOTE | 2020-01-21 03:11 | Cardiology Progress Note ---
Subjective DATE OF SERVICE: Jan 20, 2020 Remains in atrial fibrillation; rates now controlled. Occasional PVC's - non- sustained. Off amiodarone Full vent support via trach CXR: large left effusion Objective Last 24 Hour Vital Signs Date Time Temp Pulse Resp B/P (MAP) Pulse Ox O2 Delivery O2 Flow Rate FiO2 01/21/20 00:12 Mechanical Ventilator Mechanical Ventilator 01/21/20 00:00 69 01/21/20 00:00 99.0 70 20 145/71 (95) 100 01/20/20 23:06 69 17 40 01/20/20 20:00 Mechanical Ventilator Mechanical Ventilator 01/20/20 20:00 97.3 80 18 124/66 (85) 96 01/20/20 20:00 86 01/20/20 20:00 40 01/20/20 19:18 86 25 40 01/20/20 17:47 144/74 01/20/20 16:00 58 01/20/20 16:00 Mechanical Ventilator Mechanical Ventilator 01/20/20 16:00 97.3 59 23 144/74 (97) 98 01/20/20 15:36 60 22 40 01/20/20 12:00 Mechanical Ventilator Mechanical Ventilator 01/20/20 12:00 97.2 61 24 156/72 (100) 97 01/20/20 11:46 136/63 01/20/20 11:40 59 01/20/20 11:02 49 17 40 01/20/20 08:05 136/63 01/20/20 08:00 97.0 61 22 136/63 (87) 100 01/20/20 08:00 55 01/20/20 07:51 Mechanical Ventilator Mechanical Ventilator 01/20/20 07:22 59 23 40 01/20/20 04:00 97.7 68 16 151/73 (99) 100 01/20/20 04:00 Mechanical Ventilator Mechanical Ventilator 01/20/20 03:37 63 ROS: unchanged for 01/17/20 HEENT: Mechanically Ventilated, Thick Trach secretions RHYTHM: Afib LUNGS: diminished breath sounds - left, bilateral rhonchi CARDIAC: normal S1 and S2, irregularly irregular ABDOMEN: normal bowel sounds, non tender, soft, G-Tube intact EXTREMITIES: normal inspection, trace edema Laboratory Tests Test 01/20/20 03:40 01/20/20 05:27 01/20/20 10:52 01/20/20 17:00 White Blood Count 26.3 K/UL (4.8-10.8) *H Red Blood Count 3.12 M/UL (4.20-5.40) L Hemoglobin 9.0 G/DL (12.0-16.0) L Hematocrit 25.2 % (37.0-47.0) #L Mean Corpuscular Volume 81 FL (80-99) Mean Corpuscular Hemoglobin 29.0 PG (27.0-31.0) Mean Corpuscular Hemoglobin Concent 35.8 G/DL (32.0-36.0) Red Cell Distribution Width 13.7 % (11.6-14.8) Platelet Count 231 K/UL (150-450) Mean Platelet Volume 5.4 FL (6.5-10.1) L Neutrophils (%) (Auto) % (45.0-75.0) Lymphocytes (%) (Auto) % (20.0-45.0) Monocytes (%) (Auto) % (1.0-10.0) Eosinophils (%) (Auto) % (0.0-3.0) Basophils (%) (Auto) % (0.0-2.0) Differential Total Cells Counted 100 Neutrophils % (Manual) 87 % (45-75) H Lymphocytes % (Manual) 8 % (20-45) L Monocytes % (Manual) 5 % (1-10) Eosinophils % (Manual) 0 % (0-3) Basophils % (Manual) 0 % (0-2) Band Neutrophils 0 % (0-8) Platelet Estimate Adequate Platelet Morphology Normal Polychromasia 1+ Hypochromasia 1+ Anisocytosis 1+ Sodium Level 133 MMOL/L (136-145) L Potassium Level 4.5 MMOL/L (3.5-5.1) Chloride Level 93 MMOL/L (98-107) L Carbon Dioxide Level 19 MMOL/L (21-32) L Anion Gap 21 mmol/L (5-15) H Blood Urea Nitrogen 143 mg/dL (7-18) H Creatinine 4.8 MG/DL (0.55-1.30) H Estimat Glomerular Filtration Rate 9.7 mL/min (>60) Glucose Level 75 MG/DL (74-106) Calcium Level 8.3 MG/DL (8.5-10.1) L Phosphorus Level 7.8 MG/DL (2.5-4.9) H Total Bilirubin 0.4 MG/DL (0.2-1.0) Aspartate Amino Transf (AST/SGOT) 24 U/L (15-37) Alanine Aminotransferase (ALT/SGPT) 14 U/L (12-78) Alkaline Phosphatase 203 U/L (46-116) H Pro-B-Type Natriuretic Peptide > 24764 pg/mL (0-125) H Total Protein 6.7 G/DL (6.4-8.2) Albumin 2.3 G/DL (3.4-5.0) L Globulin 4.4 g/dL Albumin/Globulin Ratio 0.5 (1.0-2.7) L Amylase Level 367 U/L (25-115) H Lipase > 2000 U/L (73-393) H POC Whole Blood Glucose 84 MG/DL (74-106) 71 MG/DL (74-106) L 87 MG/DL (74-106) Microbiology Date/Time Source Procedure Growth Status 01/19/20 04:00 Stool Clostridium difficile Toxin Assay - Final Complete 01/19/20 04:00 Sputum Gram Stain - Final Resulted 01/19/20 04:00 Sputum Culture - Preliminary Gram Negative Bacillus 1 Resulted 01/18/20 18:15 Blood Blood Culture - Preliminary NO GROWTH AFTER 24 HOURS Resulted 01/18/20 18:00 Blood Blood Culture - Preliminary Resulted Assessment/Plan Assessment/Plan Chronic respiratory failure with trach Severe sepsis PAFib with rapid ventric response. Ischemic cardiomyopathy - hx CABG and s/p NSTEMI in Dec 2019. Conduction system disease of the heart Hx of permanent pacemaker explant Acute on chronic systolic and diastolic CHF Pleural effusion Consider resuming beta flori if heart rates can tolerate Anti-failure and anti-anginal regimen with titration Vent support Abx per ID Continuous cardiac monitoring Deni Willams MD Jan 21, 2020 03:11
[2020-01-21 04:00] VITALS: BP 146/81
[2020-01-21 05:01] LABS: HEMATOCRIT 24.3 % (37.0-47.0); HEMOGLOBIN 8.6 G/DL (12.0-16.0); MEAN CORPUSCULAR VOLUME 81 FL (80-99); PLATELET COUNT 242 K/UL (150-450); RED BLOOD COUNT 2.99 M/UL (4.20-5.40); RED CELL DISTRIBUTION WIDTH 14.4 % (11.6-14.8); WHITE BLOOD COUNT 20.5 K/UL (4.8-10.8)
[2020-01-21 05:32] LABS: ALBUMIN 2.2 G/DL (3.4-5.0); ALBUMIN/GLOBULIN RATIO 0.5 (1.0-2.7); BILIRUBIN,TOTAL 0.4 MG/DL (0.2-1.0); CALCIUM 8.3 MG/DL (8.5-10.1); CREATININE 3.4 MG/DL (0.55-1.30); POTASSIUM 3.6 MMOL/L (3.5-5.1)
--- NOTE | 2020-01-21 07:15 | NUR ---
NURSE HAND-OFF REPORT: Important Events on Shift:[] Patient Status: [STABLE] Diet: [NEPRO@35] Pending Orders: [] Pending Results/Labs:[] Pending MD notification:[] Latest Vital Signs: Temperature 99.5 , Pulse 75 , B/P 146 /81 , Respiratory Rate 20 , O2 SAT 98 , Mechanical Ventilator, O2 Flow Rate . Vital Sign Comment: [] EKG Rhythm: Sinus Rhythm Rhythm change?: N MD Notified?: Gabriel Willams MD Response: Order Received& Read Back Latest Chavarria Fall Score: 70 Fall Risk: High Risk Safety Measures: Call light Within Reach, Bed Alarm Zone 2, Side Rails Side Rails x2, Bed position Low and Locked. Fall Precautions: Yellow Socks Report given to [JAY RN].
--- NOTE | 2020-01-21 07:20 | NUR ---
NURSE NOTES: Report received from Alec ZIMMERMAN.Pt asleep lethargic ,noted no resp distress with trach tube to vent settings AC 14,TV 500 ,Fio2 40%,Peep 5, no signs of pain or discomfort SR on the monitor,GTF Nepro at 35 ml/hr no residual noted,Norman cath draining to scanty amount of dark raul urine,with LT Femoral Charlie cath as HD access,skin warm and dry with IV sites x2 RAC and LT wrist both intact,SR up x2 HOB elevated bed lock in lowest position,will continue with plans of care.
[2020-01-21 08:00] VITALS: BP 143/71
--- NOTE | 2020-01-21 08:40 | Infectious Diseases Prog Note ---
Assessment/Plan 49yo F with: AF Sepsis Leukocytosis Hypoxia on vent Pneumonia c/b L pleural effusion (recurrent, prior determined to be transudative) Volume overload, BNP >35,0000, likely 2/2 progressive CKD --> ESRD ?Pancreatitis, Lipase >2000 Acute anemia to 5s CONS bacteremia, ?contaminant Aflutter w/ RVR 01/13 BCx 2/2 +S. epi COVID PCR neg Flu neg CXR: Large left pleural effusion. Bilateral interstitial and airspace infiltrates versus edema MRSA nares neg 01/16 BCx NTD 01/17 BCx /2 +GPCs 01/18 Resp cx +GNR 01/18 C.dif neg 01/18 CXR: Similar opacification of the left hemithorax likely representing combination of pleural effusion with atelectasis versus pneumonia/edema. Decreased but persistent hazy opacity throughout the right lung may represent edema versus infectious/inflammatory process. 01/19 BCx p JAVIER on CKD On previous admission Sep-Oct 2019 required HD for short period Going to start HD this admission again R/o COVID 01/14 COVID PCR neg 12/29 neg at SNF per report H/o UTI 11/27 u/a wbc 30-40, nit neg, leuk +3; ucx ESBL P. mirablis, ESBL M. morganii 09/15/19 u/a wbc tnct, nit neg, leuk +3; ucx >100k MDR P. stuarti (S Ceftriaxone, Meropenem) 10/07 u/a wbc tnct, nit neg, leuk ; ucx >100k VRE 10/15/19 u/a wbc tnct; ucx >100k ESBL P. stuarti (S ertapenem, aztreonam) H/o transudative pleural effusion 11/28 Sp Thora (w: 169, PMN: 2%, L: 49% , LDH: 57, prot 2.5); cx Neg H/o PNA 10/15/19 Resp cx ESBL P. mirabilis, MDR P.a. (S only to Gent) 09/22 Resp cx + MDR PsA (S-gent; I-colistin; R-levofloxacin, Zosyn, angelo) 09/16/19 Sp cx ESBL P. mirablis H/o PPM site (pocket) infection and pocket abscess 2ry to S. epi-11/2018, sp >6weeks IV vancomycin 11/27 SP ABBIE: no evidence for vegetation on any of the valves 11/26/18 SP PPM removal: OR findings:The fibrous capsule enclosing the generator was then opened and there was a [id number] amount of yellowish fluid drainage. The generator was then removed.Atrial and ventricular leads were detached. The necrotic tissue of the pocket was then removed and the pocket was flushed with an antibiotic solution. Capsule, wound tissue and lead tip cx: Neg 2d echo: no vegetation seen US chest: 4.6 x 3.4 x 0.9 cm hypoechoic/anechoic area overlying left chest pacemaker power pack. This could represent either a discrete fluid collection or a focal area of very edematous tissue. Infected fluid pocket also possible. 11/18 Bcx / S. epi; 11/20 Bcx neg; 11/24 Bcx Neg; 11/27 Bcx Neg CAD s/p CABG GERD/gastritis Afib HTN Dysphagia sp GT Aortic dissection s/p repair 2018 S/p PPM Parkinson's Disease Schizophrenia Anxiety COPD Chronic resp failure s/p trach Hx of tracheal bleeding MD resident ([facility]) VRE and MRSA colonized Plan: Cont meropenem #5 Cont vanco #7 given CONS/GPC bacteremia F/u repeat BCx 01/19 given BCx from 01/17 02/14 +GPCs F/u Resp cx 01/18, +GNRs Trend WBC Recommend volume removal given BNP >35k, agree with HD initiation ?Pancreatitis, lipase >2000, appreciate GI input 01/16 SP Zosyn #2 01/14 SP dex 10mg in ED 12/10 SP IV Gentamycin #10 12/07 SP Meropenem #10 12/01 SP IV Vancomycin #5 11/28 Sp Cefepime #2 and IV Gentamycin x1 Monitor CBC/CMP Monitor temp curve, hemodynamics Monitor resp status D/w RN Thank you for this consult. [facility] will continue to follow. Subjective Allergies: Coded Allergies: No Known Allergies (Unverified , 10/10/17) AF WBC 20, improving NAD on vent, mod oral secretions per RT, unable to wean vent further currently due to last ABG Vent FiO2 50% PEEP 5 Objective Last 24 Hour Vital Signs Date Time Temp Pulse Resp B/P (MAP) Pulse Ox O2 Delivery O2 Flow Rate FiO2 01/21/20 07:21 73 19 40 01/21/20 04:00 Mechanical Ventilator Mechanical Ventilator 01/21/20 04:00 99.5 74 20 146/81 (102) 98 01/21/20 04:00 75 01/21/20 03:30 72 20 40 01/21/20 00:12 Mechanical Ventilator Mechanical Ventilator 01/21/20 00:00 69 01/21/20 00:00 99.0 70 20 145/71 (95) 100 01/20/20 23:06 69 17 40 01/20/20 20:00 Mechanical Ventilator Mechanical Ventilator 01/20/20 20:00 97.3 80 18 124/66 (85) 96 01/20/20 20:00 86 01/20/20 20:00 40 01/20/20 19:18 86 25 40 01/20/20 17:47 144/74 01/20/20 16:00 58 01/20/20 16:00 Mechanical Ventilator Mechanical Ventilator 01/20/20 16:00 97.3 59 23 144/74 (97) 98 01/20/20 15:36 60 22 40 01/20/20 12:00 Mechanical Ventilator Mechanical Ventilator 01/20/20 12:00 97.2 61 24 156/72 (100) 97 01/20/20 11:46 136/63 01/20/20 11:40 59 01/20/20 11:02 49 17 40 Height (Feet): 5 Height (Inches): 6.00 Weight (Pounds): 150 Gen: NAD HEENT: NCAT, +trach Pulm: BL chest rise on vent Abd: Non-distended, +PEG Ext: No c/c/e Skin: No visible rashes Neuro: Awake, minimally interactive Lines: L fem HD cath Microbiology Date/Time Source Procedure Growth Status 01/19/20 04:00 Stool Clostridium difficile Toxin Assay - Final Complete 01/19/20 04:00 Sputum Gram Stain - Final Resulted 01/19/20 04:00 Sputum Culture - Preliminary Gram Negative Bacillus 1 Resulted 01/18/20 18:15 Blood Blood Culture - Preliminary NO GROWTH AFTER 24 HOURS Resulted 01/18/20 18:00 Blood Blood Culture - Preliminary Resulted Laboratory Tests Test 01/20/20 10:52 01/20/20 17:00 01/21/20 03:20 POC Whole Blood Glucose 71 MG/DL (74-106) L 87 MG/DL (74-106) White Blood Count 20.5 K/UL (4.8-10.8) H Red Blood Count 2.99 M/UL (4.20-5.40) L Hemoglobin 8.6 G/DL (12.0-16.0) L Hematocrit 24.3 % (37.0-47.0) L Mean Corpuscular Volume 81 FL (80-99) Mean Corpuscular Hemoglobin 28.8 PG (27.0-31.0) Mean Corpuscular Hemoglobin Concent 35.4 G/DL (32.0-36.0) Red Cell Distribution Width 14.4 % (11.6-14.8) Platelet Count 242 K/UL (150-450) Mean Platelet Volume 5.9 FL (6.5-10.1) L Neutrophils (%) (Auto) % (45.0-75.0) Lymphocytes (%) (Auto) % (20.0-45.0) Monocytes (%) (Auto) % (1.0-10.0) Eosinophils (%) (Auto) % (0.0-3.0) Basophils (%) (Auto) % (0.0-2.0) Neutrophils % (Manual) Pending Lymphocytes % (Manual) Pending Platelet Estimate Pending Platelet Morphology Pending Sodium Level 141 MMOL/L (136-145) Potassium Level 3.6 MMOL/L (3.5-5.1) Chloride Level 100 MMOL/L (98-107) Carbon Dioxide Level 26 MMOL/L (21-32) Anion Gap 15 mmol/L (5-15) Blood Urea Nitrogen 93 mg/dL (7-18) H Creatinine 3.4 MG/DL (0.55-1.30) H Estimat Glomerular Filtration Rate 14.5 mL/min (>60) Glucose Level 104 MG/DL (74-106) Calcium Level 8.3 MG/DL (8.5-10.1) L Phosphorus Level 5.4 MG/DL (2.5-4.9) H Total Bilirubin 0.4 MG/DL (0.2-1.0) Aspartate Amino Transf (AST/SGOT) 27 U/L (15-37) Alanine Aminotransferase (ALT/SGPT) 17 U/L (12-78) Alkaline Phosphatase 231 U/L (46-116) H Total Protein 6.7 G/DL (6.4-8.2) Albumin 2.2 G/DL (3.4-5.0) L Globulin 4.5 g/dL Albumin/Globulin Ratio 0.5 (1.0-2.7) L Random Vancomycin Level 24.0 ug/mL Current Medications Medications (Trade) Dose Ordered Sig/Penny Route PRN Reason Start Time Stop Time Status Last Admin Dose Admin Aspirin (ASA) 81 mg DAILY GT 01/20/20 09:00 03/05/20 08:59 Atorvastatin Calcium (Lipitor) 10 mg BEDTIME GT 01/17/20 21:00 04/16/20 20:59 01/20/20 22:11 Chlorhexidine Gluconate (Ling-Hex 2%) 1 applic DAILY@2000 TOPIC 01/17/20 20:00 04/16/20 19:59 01/20/20 22:11 Dextrose (Dextrose 50%) 25 ml Q30M PRN IV Hypoglycemia 01/15/20 22:15 04/14/20 22:14 Dextrose (Dextrose 50%) 50 ml Q30M PRN IV Hypoglycemia 01/15/20 22:15 04/14/20 22:14 Isosorbide Dinitrate (Isordil) 10 mg TID GT 01/20/20 09:00 02/19/20 08:59 01/20/20 17:47 Lansoprazole (Prevacid) 30 mg BID GT 01/19/20 18:00 02/18/20 17:59 01/20/20 17:47 Meropenem 500 mg/ Sodium Chloride 55 ml @ 110 mls/hr Q24H IVPB 01/17/20 10:30 01/22/20 10:29 01/20/20 10:16 Metoclopramide HCl (Reglan) 5 mg Q6H PRN IVP Nausea & Vomiting 01/15/20 22:15 02/14/20 22:14 Vancomycin HCl (Vanco pharmacy to dose) 1 ea DAILY PRN MISC Per rx protocol 01/15/20 22:15 02/14/20 22:14 Zinc Oxide (Zinc Oxide) 1 applic TIDPRN PRN TOPIC diogenes GT 01/16/20 13:15 04/15/20 13:14 01/16/20 14:55 Ro Pack M.D. Jan 21, 2020 08:40
[2020-01-21] MEDS: Aspirin Baby 81mg GT SCH (09:42)
[2020-01-21] MEDS: Meropenem 500 MG in NS 55 ML IVPB SCH (09:49)
--- NOTE | 2020-01-21 10:22 | General Progress Note ---
Subjective ROS Limited/Unobtainable: No Allergies: Coded Allergies: No Known Allergies (Unverified , 10/10/17) Objective Last 24 Hour Vital Signs Date Time Temp Pulse Resp B/P (MAP) Pulse Ox O2 Delivery O2 Flow Rate FiO2 01/21/20 09:48 143/71 01/21/20 08:00 74 01/21/20 08:00 99.3 71 20 143/71 (95) 100 01/21/20 07:21 73 19 40 01/21/20 04:00 Mechanical Ventilator Mechanical Ventilator 01/21/20 04:00 99.5 74 20 146/81 (102) 98 01/21/20 04:00 75 01/21/20 03:30 72 20 40 01/21/20 00:12 Mechanical Ventilator Mechanical Ventilator 01/21/20 00:00 69 01/21/20 00:00 99.0 70 20 145/71 (95) 100 01/20/20 23:06 69 17 40 01/20/20 20:00 Mechanical Ventilator Mechanical Ventilator 01/20/20 20:00 97.3 80 18 124/66 (85) 96 01/20/20 20:00 86 01/20/20 20:00 40 01/20/20 19:18 86 25 40 01/20/20 17:47 144/74 01/20/20 16:00 58 01/20/20 16:00 Mechanical Ventilator Mechanical Ventilator 01/20/20 16:00 97.3 59 23 144/74 (97) 98 01/20/20 15:36 60 22 40 01/20/20 12:00 Mechanical Ventilator Mechanical Ventilator 01/20/20 12:00 97.2 61 24 156/72 (100) 97 01/20/20 11:46 136/63 01/20/20 11:40 59 01/20/20 11:02 49 17 40 Intake and Output 01/20/20 01/21/20 19:00 07:00 Intake Total 445 ml Output Total 250 ml 2050 ml Balance 195 ml -2050 ml Free Water 30 ml IV Total 55 ml Tube Feeding 210 ml Other 150 ml Output Urine Total 250 ml 50 ml Hemodialysis UF 2000 ml # Bowel Movements 1 Laboratory Tests 01/20/20 10:52: POC Whole Blood Glucose 71L 01/20/20 17:00: POC Whole Blood Glucose 87 01/21/20 03:20: White Blood Count 20.5H, Red Blood Count 2.99L, Hemoglobin 8.6L, Hematocrit 24.3L, Mean Corpuscular Volume 81, Mean Corpuscular Hemoglobin 28.8, Mean Corpuscular Hemoglobin Concent 35.4, Red Cell Distribution Width 14.4, Platelet Count 242, Mean Platelet Volume 5.9L, Neutrophils (%) (Auto) , Lymphocytes (%) (Auto) , Monocytes (%) (Auto) , Eosinophils (%) (Auto) , Basophils (%) (Auto) , Differential Total Cells Counted 100, Neutrophils % (Manual) 93H, Lymphocytes % (Manual) 5L, Monocytes % (Manual) 2, Eosinophils % (Manual) 0, Basophils % (Manual) 0, Band Neutrophils 0, Platelet Estimate Adequate, Platelet Morphology Normal, Polychromasia 1+, Hypochromasia 1+, Sodium Level 141, Potassium Level 3.6, Chloride Level 100, Carbon Dioxide Level 26, Anion Gap 15, Blood Urea Nitrogen 93H, Creatinine 3.4H, Estimat Glomerular Filtration Rate 14.5, Glucose Level 104, Calcium Level 8.3L, Phosphorus Level 5.4H, Total Bilirubin 0.4, Aspartate Amino Transf (AST/SGOT) 27, Alanine Aminotransferase (ALT/SGPT) 17, Alkaline Phosphatase 231H, Total Protein 6.7, Albumin 2.2L, Globulin 4.5, Albumin/Globulin Ratio 0.5L, Random Vancomycin Level 24.0 Height (Feet): 5 Height (Inches): 6.00 Weight (Pounds): 150 General Appearance: lethargic EENT: normal ENT inspection Neck: supple Cardiovascular: normal rate Respiratory/Chest: decreased breath sounds Abdomen: hypoactive bowel sounds Extremities: non-tender Assessment/Plan Problem List: (1) Hx of CABG ICD Codes: Z95.1 - Presence of aortocoronary bypass graft SNOMED: 023780104, 394724938 (2) History of tracheostomy ICD Codes: Z98.890 - Other specified postprocedural states SNOMED: 420068826, 435277169 (3) PEG (percutaneous endoscopic gastrostomy) status ICD Codes: Z93.1 - Gastrostomy status SNOMED: 798472341, 878751199 (4) S/P aortic dissection repair ICD Codes: Z98.890 - Other specified postprocedural states SNOMED: 777041670, 412201064 (5) Renal failure ICD Codes: N19 - Unspecified kidney failure SNOMED: 05665894, 678590694 (6) Anemia ICD Codes: D64.9 - Anemia, unspecified SNOMED: 377148770 Assessment/Plan: not stable for GI procedures ppi blood transfusion fu labs EGD when more stable GT topical care low dose GTF tolerated fu nephrology HD per nephrology repeat amylase and lipase recommend hospice Inder Arteaga MD Jan 21, 2020 10:22
--- NOTE | 2020-01-21 10:31 | NUR ---
INSURANCE REFAXED CLINICALS/REVIEW FAXED TO (01/18-01/20) FX [phone] PH [phone]
--- NOTE | 2020-01-21 11:30 | Pulmonology Progress Note ---
Subjective ROS Limited/Unobtainable: Yes Interval Events: s/p 1 unit of pRBC Constitutional: Reports: no symptoms HEENT: Repors: no symptoms Respiratory: Reports: no symptoms Cardiovascular: Reports: no symptoms Gastrointestinal/Abdominal: Reports: no symptoms Allergies: Coded Allergies: No Known Allergies (Unverified , 10/10/17) All Systems: reviewed and negative except above Objective Last 24 Hour Vital Signs Date Time Temp Pulse Resp B/P (MAP) Pulse Ox O2 Delivery O2 Flow Rate FiO2 01/21/20 09:48 143/71 01/21/20 08:00 74 01/21/20 08:00 99.3 71 20 143/71 (95) 100 01/21/20 07:21 73 19 40 01/21/20 04:00 Mechanical Ventilator Mechanical Ventilator 01/21/20 04:00 99.5 74 20 146/81 (102) 98 01/21/20 04:00 75 01/21/20 03:30 72 20 40 01/21/20 00:12 Mechanical Ventilator Mechanical Ventilator 01/21/20 00:00 69 01/21/20 00:00 99.0 70 20 145/71 (95) 100 01/20/20 23:06 69 17 40 01/20/20 20:00 Mechanical Ventilator Mechanical Ventilator 01/20/20 20:00 97.3 80 18 124/66 (85) 96 01/20/20 20:00 86 01/20/20 20:00 40 01/20/20 19:18 86 25 40 01/20/20 17:47 144/74 01/20/20 16:00 58 01/20/20 16:00 Mechanical Ventilator Mechanical Ventilator 01/20/20 16:00 97.3 59 23 144/74 (97) 98 01/20/20 15:36 60 22 40 01/20/20 12:00 Mechanical Ventilator Mechanical Ventilator 01/20/20 12:00 97.2 61 24 156/72 (100) 97 01/20/20 11:46 136/63 01/20/20 11:40 59 Intake and Output 01/20/20 01/21/20 19:00 07:00 Intake Total 445 ml Output Total 250 ml 2050 ml Balance 195 ml -2050 ml Free Water 30 ml IV Total 55 ml Tube Feeding 210 ml Other 150 ml Output Urine Total 250 ml 50 ml Hemodialysis UF 2000 ml # Bowel Movements 1 Objective 01/21/2020 trach site clean, no leakage noted; currently saturating 98% with AC 14, TV 500 FiO2 50%, PEEP 5. 01/20/2020 tracheostomy site clean, vent dependent patient, no leakage noted General Appearance: no acute distress HEENT: normocephalic, other - trach Respiratory: chest wall non-tender, other - coarse lung sounds Cardiovascular: normal rate, regular rhythm Abdomen: soft, non tender Genitourinary: other - [place] Extremities: other - trace edema Microbiology Date/Time Source Procedure Growth Status 01/19/20 04:00 Stool Clostridium difficile Toxin Assay - Final Complete 01/19/20 04:00 Sputum Gram Stain - Final Resulted 01/19/20 04:00 Sputum Culture - Preliminary Gram Negative Bacillus 1 Resulted 01/18/20 18:15 Blood Blood Culture - Preliminary NO GROWTH AFTER 24 HOURS Resulted 01/18/20 18:00 Blood Blood Culture - Preliminary Resulted Laboratory Tests 01/20/20 17:00: POC Whole Blood Glucose 87 01/21/20 03:20: White Blood Count 20.5H, Red Blood Count 2.99L, Hemoglobin 8.6L, Hematocrit 24.3L, Mean Corpuscular Volume 81, Mean Corpuscular Hemoglobin 28.8, Mean Corpuscular Hemoglobin Concent 35.4, Red Cell Distribution Width 14.4, Platelet Count 242, Mean Platelet Volume 5.9L, Neutrophils (%) (Auto) , Lymphocytes (%) (Auto) , Monocytes (%) (Auto) , Eosinophils (%) (Auto) , Basophils (%) (Auto) , Differential Total Cells Counted 100, Neutrophils % (Manual) 93H, Lymphocytes % (Manual) 5L, Monocytes % (Manual) 2, Eosinophils % (Manual) 0, Basophils % (Manual) 0, Band Neutrophils 0, Platelet Estimate Adequate, Platelet Morphology Normal, Polychromasia 1+, Hypochromasia 1+, Sodium Level 141, Potassium Level 3.6, Chloride Level 100, Carbon Dioxide Level 26, Anion Gap 15, Blood Urea Nitrogen 93H, Creatinine 3.4H, Estimat Glomerular Filtration Rate 14.5, Glucose Level 104, Calcium Level 8.3L, Phosphorus Level 5.4H, Total Bilirubin 0.4, Aspartate Amino Transf (AST/SGOT) 27, Alanine Aminotransferase (ALT/SGPT) 17, Alkaline Phosphatase 231H, Total Protein 6.7, Albumin 2.2L, Globulin 4.5, Albumin/Globulin Ratio 0.5L, Random Vancomycin Level 24.0 Current Medications Medications (Trade) Dose Ordered Sig/Penny Route PRN Reason Start Time Stop Time Status Last Admin Dose Admin Aspirin (ASA) 81 mg DAILY GT 01/20/20 09:00 03/05/20 08:59 01/21/20 09:42 Atorvastatin Calcium (Lipitor) 10 mg BEDTIME GT 01/17/20 21:00 04/16/20 20:59 01/20/20 22:11 Chlorhexidine Gluconate (Ling-Hex 2%) 1 applic DAILY@1999 TOPIC 01/17/20 20:00 04/16/20 19:59 01/20/20 22:11 Dextrose (Dextrose 50%) 25 ml Q30M PRN IV Hypoglycemia 01/15/20 22:15 04/14/20 22:14 Dextrose (Dextrose 50%) 50 ml Q30M PRN IV Hypoglycemia 01/15/20 22:15 04/14/20 22:14 Isosorbide Dinitrate (Isordil) 10 mg TID GT 01/20/20 09:00 02/19/20 08:59 01/21/20 09:48 Lansoprazole (Prevacid) 30 mg BID GT 01/19/20 18:00 02/18/20 17:59 01/21/20 09:42 Meropenem 500 mg/ Sodium Chloride 55 ml @ 110 mls/hr Q24H IVPB 01/17/20 10:30 01/22/20 10:29 01/21/20 09:49 Metoclopramide HCl (Reglan) 5 mg Q6H PRN IVP Nausea & Vomiting 01/15/20 22:15 02/14/20 22:14 Vancomycin HCl (Vanco pharmacy to dose) 1 ea DAILY PRN MISC Per rx protocol 01/15/20 22:15 02/14/20 22:14 Zinc Oxide (Zinc Oxide) 1 applic TIDPRN PRN TOPIC diogenes GT 01/16/20 13:15 04/15/20 13:14 01/16/20 14:55 Assessment/Plan Assessment/Plan 1. Large left effusion. - Consider thoracentesis; however her current saturations are adequate; will defer thoracentesis due to concerns regarding trapped lung and no absolute need. 2. Chronic respiratory failure. - on trach, current setting: AC 14, VT 500, FiO2 50%, PEEP 5 - Cont AC mode - Currently saturating at 98% 3. Sepsis. - WBC 26.3 -> 20.5 4. Anemia - s/p 1 unit pRBC - Hgb 7 -> 9 -> 8.6 s/p HD Broad-spectrum antibiotics. Pulmonary hygiene. DVT and GI prophylaxes. We will follow carefully. The care for this patient was discussed with my supervising physician TIme spent for this case was approximately 31 minutes The history of Isabella Gillis has been reviewed and management options for her have been examined and discussed by Elijah Stephen. I have personally examined and interviewed the patient. Cruz Wilson Jan 21, 2020 11:30 Elijah Stephen MD Jan 21, 2020 16:17
[2020-01-21 12:00] VITALS: BP 157/74
--- NOTE | 2020-01-21 12:00 | NUR ---
NURSE NOTES: Oral /Tracheal secretions suctioned PRN,pulled up and repositioned .
--- NOTE | 2020-01-21 14:40 | Surgery Progress Note ---
Surgery Progress Note Subjective Procedure Performed Left femoral temporary hemodialysis catheter insertion Symptoms: improved, tolerating diet, passing flatus Objective Last 24 Hour Vital Signs Date Time Temp Pulse Resp B/P (MAP) Pulse Ox O2 Delivery O2 Flow Rate FiO2 01/21/20 14:35 157/74 01/21/20 12:00 73 01/21/20 12:00 99.1 73 20 157/74 (101) 96 01/21/20 11:56 71 20 40 01/21/20 09:48 143/71 01/21/20 08:00 74 01/21/20 08:00 99.3 71 20 143/71 (95) 100 01/21/20 08:00 Mechanical Ventilator Mechanical Ventilator 01/21/20 07:21 73 19 40 01/21/20 04:00 Mechanical Ventilator Mechanical Ventilator 01/21/20 04:00 99.5 74 20 146/81 (102) 98 01/21/20 04:00 75 01/21/20 03:30 72 20 40 01/21/20 00:12 Mechanical Ventilator Mechanical Ventilator 01/21/20 00:00 69 01/21/20 00:00 99.0 70 20 145/71 (95) 100 01/20/20 23:06 69 17 40 01/20/20 20:00 Mechanical Ventilator Mechanical Ventilator 01/20/20 20:00 97.3 80 18 124/66 (85) 96 01/20/20 20:00 86 01/20/20 20:00 40 01/20/20 19:18 86 25 40 01/20/20 17:47 144/74 01/20/20 16:00 58 01/20/20 16:00 Mechanical Ventilator Mechanical Ventilator 01/20/20 16:00 97.3 59 23 144/74 (97) 98 01/20/20 15:36 60 22 40 I&O Intake and Output 01/20/20 01/21/20 19:00 07:00 Intake Total 445 ml Output Total 250 ml 2050 ml Balance 195 ml -2050 ml Free Water 30 ml IV Total 55 ml Tube Feeding 210 ml Other 150 ml Output Urine Total 250 ml 50 ml Hemodialysis UF 2000 ml # Bowel Movements 1 Dressing: saturated Cardiovascular: RSR Respiratory: decreased breath sounds Abdomen: non-tender, present bowel sounds Extremities: no tenderness, no cyanosis Laboratory Tests Test 01/20/20 17:00 01/21/20 03:20 12/8/20 12:36 POC Whole Blood Glucose 87 MG/DL (74-106) 97 MG/DL (74-106) White Blood Count 20.5 K/UL (4.8-10.8) H Red Blood Count 2.99 M/UL (4.20-5.40) L Hemoglobin 8.6 G/DL (12.0-16.0) L Hematocrit 24.3 % (37.0-47.0) L Mean Corpuscular Volume 81 FL (80-99) Mean Corpuscular Hemoglobin 28.8 PG (27.0-31.0) Mean Corpuscular Hemoglobin Concent 35.4 G/DL (32.0-36.0) Red Cell Distribution Width 14.4 % (11.6-14.8) Platelet Count 242 K/UL (150-450) Mean Platelet Volume 5.9 FL (6.5-10.1) L Neutrophils (%) (Auto) % (45.0-75.0) Lymphocytes (%) (Auto) % (20.0-45.0) Monocytes (%) (Auto) % (1.0-10.0) Eosinophils (%) (Auto) % (0.0-3.0) Basophils (%) (Auto) % (0.0-2.0) Differential Total Cells Counted 100 Neutrophils % (Manual) 93 % (45-75) H Lymphocytes % (Manual) 5 % (20-45) L Monocytes % (Manual) 2 % (1-10) Eosinophils % (Manual) 0 % (0-3) Basophils % (Manual) 0 % (0-2) Band Neutrophils 0 % (0-8) Platelet Estimate Adequate Platelet Morphology Normal Polychromasia 1+ Hypochromasia 1+ Sodium Level 141 MMOL/L (136-145) Potassium Level 3.6 MMOL/L (3.5-5.1) Chloride Level 100 MMOL/L (98-107) Carbon Dioxide Level 26 MMOL/L (21-32) Anion Gap 15 mmol/L (5-15) Blood Urea Nitrogen 93 mg/dL (7-18) H Creatinine 3.4 MG/DL (0.55-1.30) H Estimat Glomerular Filtration Rate 14.5 mL/min (>60) Glucose Level 104 MG/DL (74-106) Calcium Level 8.3 MG/DL (8.5-10.1) L Phosphorus Level 5.4 MG/DL (2.5-4.9) H Total Bilirubin 0.4 MG/DL (0.2-1.0) Aspartate Amino Transf (AST/SGOT) 27 U/L (15-37) Alanine Aminotransferase (ALT/SGPT) 17 U/L (12-78) Alkaline Phosphatase 231 U/L (46-116) H Total Protein 6.7 G/DL (6.4-8.2) Albumin 2.2 G/DL (3.4-5.0) L Globulin 4.5 g/dL Albumin/Globulin Ratio 0.5 (1.0-2.7) L Random Vancomycin Level 24.0 ug/mL Plan Problems: (1) Dehydration (2) Acidosis (3) Depression (4) Pleural effusion (5) Respiratory failure (6) Schizophrenia (7) Hypoxia (8) UTI (urinary tract infection) (9) Pneumonia (10) NSTEMI (non-ST elevated myocardial infarction) (11) Tracheostomy in place (12) Feeding by G-tube (13) JAVIER (acute kidney injury) (14) Acute encephalopathy (15) Sacral decubitus ulcer, stage IV (16) Chronic respiratory failure (17) Ascites (18) Bacteremia (19) Hypernatremia (20) Proteinuria (21) Electrolyte imbalance (22) ACS (acute coronary syndrome) (23) Aortic dissection, thoracic (24) Respiratory failure, acute and chronic (25) JAVIER (acute kidney injury) (26) Abrasion of lip, initial encounter (27) COPD with exacerbation (28) Elevated alkaline phosphatase level (29) Renal failure (ARF), acute on chronic (30) HCAP (healthcare-associated pneumonia) (31) GT CLOGGED (32) Elevated lipase (33) Pancreatitis (34) Elevated troponin (35) Hypokalemia (36) Hyponatremia (37) Anemia (38) Renal failure (39) ARF (acute renal failure) (40) Pacemaker (41) Sepsis Assessment & Plan: leukocytosis anemia on HD renal insufficiency wounds addressed pt presented on admission with Tracheostomy ,GT and Multiple Pressure Injuries. Skin assessment of skin under tracheal collar without evidence of skin breakdown. Peristomal GT site excoriated.Moderate amt of dark red sanguineous exudate. Full Thickness Sacral Pressure Injury with undermined borders (L)9 cm x (W)12cm x (D)1.8cm,Undermining clockwise8-9 by 2.2cm @1o'clock,undermining clockwise 1-4 by 1.9 @ 9'oclock Scattered necrotic tissue within wound bed. Borders are loose and necrotic with marginal erythema to outer perimeter of wound. NO elevation in skin temp noted periwound. Wound is malodorous. Small amt Brown exudate noted. Resolving Pressure Injury L Ischium(L)1.5cm x (W)1.5cm. Base of wound is 80% pink epithelial with an area that is moist and pink. NO odor or exudate noted. Bilat foot-drop noted. L Heel is boggy with non-blanchable erythema(L)4cm x (W)4cm. R heel is boggy with non-Blanchable erythema(L)5cm x (W)6cm. Tx.Plan: Cleanse sacral wound with Dakin's 0.125% annie. Loosely pack with Dakin's moistened Kerlix(Attention to undermined borders). Apply Moisture Barrier Paste periwound. Cover with Optifoam drsg. Change Daily and PRN. Apply Cavilon Skin Barrier to R and L Hels. Cover each heel with Optifoam drsg. Change every 7 days and prn. Reposition at least every 2hours or as tolerated. Off-load heels with Pillow. APM/JENNIFER MAttress overlay DAILY ESTIMATED NEEDS: Needs based on Critical care, wound, renal dysfunction 56 kg abw 28-33 kcals/kg 5063-5706 total kcals W/ HD (1.5-2.0) g protein/kg 84-112 g total protein Fluid per MD mL/kg . total fluid mLs NUTRITION DIAGNOSIS: * Swallowing difficulty R/T dysphagia, respiratory status as evidenced by vent dep via trach, GT Dep. * Increase kcal and pro needs r/t wound healing, renal dysfunction as evidenced by admitted w/ large, advanced sacral wound, previously stage 4, pending eval, admitted w/ JAVIER, pending HD. CURRENT TF:NPO ENTERAL NUTRITION RECOMMENDATIONS: Nepro @ 40ml/hr x 24 hrs + Prosource 1pkt QD to provide 960ml, 1728kcal, 78g +11g prot, 698ml free water * As medically appropriate, initiate TF on Nepro, rec goal rate fo 40ml/hr x 24 hrs * Add Prosource 1pkt QD to better meet increased protein needs (additional 11g prot) * Water flush per MD/ HOB over 30 degrees ADDITIONAL RECOMMENDATIONS: * Per SNF in NOV 2019: HT=63"/ Rec daily calibrated bedscale wt * Monitor for continuity of HD: non-tunneled cath placement ordered * Monitor lytes and renal fxn for improvement (Na low, K and phos elevated) * Wound care: add Nephrovite x 1, ZnSO4 220mg QD x 10 days Reynaldo BID via PEG (mix w/ 2-4 oz water) * Monitor BG closely for hypoglycemia while NPO (h/o DM, on Nacl 3% to correct hyponatremia, consider accuchecks) (42) Hyponatremia Lane Saavedra Jan 21, 2020 14:40
--- NOTE | 2020-01-21 14:52 | NUR ---
CASE MANAGEMENT:REVIEW 01/21/20 SI: SEPSIS. RENAL FAILURE TRACH/VENT 99.3 71 20 143/71 96% ON VENT SUPPORT W/40% FIO2 WBC=20.5 H/H-8.6/24.3 BUN+93 CR+3.4 IS: IV MEROPENEM Q24 ISORDIL GT TID ASA GT QD PREVACID GT BID : STEP DOWN UNIT DCP: FROM [facility] PLAN: MONITOR CREATININE
--- NOTE | 2020-01-21 15:45 | Nephrology Progress Note ---
Assessment/Plan Problem List: (1) ARF (acute renal failure) (2) Pacemaker (3) Sepsis (4) Hyponatremia Assessment (1) JAVIER (acute kidney injury) (2) Renal failure (ARF), acute on chronic (3) Feeding by G-tube (4) Tracheostomy in place (5) Electrolyte imbalance, hyponatremia (6) Anemia, severe (7) Respiratory failure, acute and chronic (8) Elevated lipase, pancreatitis (9) Elevated troponin I (10) Sepsis Plan January 20: Dialyzed yesterday. Labs reviewed. Continue per current management. Dialysis as needed. Add Norvasc to blood pressure regimen January 19: Due for dialysis today. Labs reviewed. Continue her current management. Continue to monitor renal parameters and electrolytes. January 18: Dialyzed yesterday. Labs reviewed. Renal parameters electrolytes much improved. Dialysis again tomorrow. Continue rest. January 17: Dialyzed this morning. Labs reviewed. Renal parameters and electrolyte abnormalities improved. Discussed with RN. Continue per consultants. January 16: Dialyzed yesterday. Labs improved. Next dialysis tomorrow. Continue per consultants. January 15: Patient to have dialysis catheter. Emergency dialysis for correction of uremia and electrolyte imbalances Antibiotics Transfusion Continue to monitor renal parameters Per orders Discussed with RN Subjective ROS Limited/Unobtainable: Yes Objective Objective Last 24 Hour Vital Signs Date Time Temp Pulse Resp B/P (MAP) Pulse Ox O2 Delivery O2 Flow Rate FiO2 01/21/20 15:27 81 24 40 01/21/20 14:35 157/74 01/21/20 12:00 73 01/21/20 12:00 99.1 73 20 157/74 (101) 96 01/21/20 11:56 71 20 40 01/21/20 09:48 143/71 01/21/20 08:00 74 01/21/20 08:00 99.3 71 20 143/71 (95) 100 01/21/20 08:00 Mechanical Ventilator Mechanical Ventilator 01/21/20 07:21 73 19 40 01/21/20 04:00 Mechanical Ventilator Mechanical Ventilator 01/21/20 04:00 99.5 74 20 146/81 (102) 98 01/21/20 04:00 75 01/21/20 03:30 72 20 40 01/21/20 00:12 Mechanical Ventilator Mechanical Ventilator 01/21/20 00:00 69 01/21/20 00:00 99.0 70 20 145/71 (95) 100 01/20/20 23:06 69 17 40 01/20/20 20:00 Mechanical Ventilator Mechanical Ventilator 01/20/20 20:00 97.3 80 18 124/66 (85) 96 01/20/20 20:00 86 01/20/20 20:00 40 01/20/20 19:18 86 25 40 01/20/20 17:47 144/74 01/20/20 16:00 58 01/20/20 16:00 Mechanical Ventilator Mechanical Ventilator 01/20/20 16:00 97.3 59 23 144/74 (97) 98 Intake and Output 01/20/20 01/21/20 19:00 07:00 Intake Total 445 ml Output Total 250 ml 2050 ml Balance 195 ml -2050 ml Free Water 30 ml IV Total 55 ml Tube Feeding 210 ml Other 150 ml Output Urine Total 250 ml 50 ml Hemodialysis UF 2000 ml # Bowel Movements 1 Current Medications Medications (Trade) Dose Ordered Sig/Penny Route PRN Reason Start Time Stop Time Status Last Admin Dose Admin Aspirin (ASA) 81 mg DAILY GT 01/20/20 09:00 03/05/20 08:59 01/21/20 09:42 Atorvastatin Calcium (Lipitor) 10 mg BEDTIME GT 01/17/20 21:00 04/16/20 20:59 01/20/20 22:11 Chlorhexidine Gluconate (Ling-Hex 2%) 1 applic DAILY@2000 TOPIC 01/17/20 20:00 04/16/20 19:59 01/20/20 22:11 Dextrose (Dextrose 50%) 25 ml Q30M PRN IV Hypoglycemia 01/15/20 22:15 04/14/20 22:14 Dextrose (Dextrose 50%) 50 ml Q30M PRN IV Hypoglycemia 01/15/20 22:15 04/14/20 22:14 Isosorbide Dinitrate (Isordil) 10 mg TID GT 01/20/20 09:00 02/19/20 08:59 01/21/20 14:35 Lansoprazole (Prevacid) 30 mg BID GT 01/19/20 18:00 02/18/20 17:59 01/21/20 09:42 Meropenem 500 mg/ Sodium Chloride 55 ml @ 110 mls/hr Q24H IVPB 01/17/20 10:30 12/9/20 10:29 01/21/20 09:49 Metoclopramide HCl (Reglan) 5 mg Q6H PRN IVP Nausea & Vomiting 01/15/20 22:15 02/14/20 22:14 Vancomycin HCl (Vanco pharmacy to dose) 1 ea DAILY PRN MISC Per rx protocol 01/15/20 22:15 02/14/20 22:14 Zinc Oxide (Zinc Oxide) 1 applic TIDPRN PRN TOPIC diogenes GT 01/16/20 13:15 04/15/20 13:14 01/16/20 14:55 Laboratory Tests 01/20/20 17:00: POC Whole Blood Glucose 87 01/21/20 03:20: White Blood Count 20.5H, Red Blood Count 2.99L, Hemoglobin 8.6L, Hematocrit 24.3L, Mean Corpuscular Volume 81, Mean Corpuscular Hemoglobin 28.8, Mean Cor puscular Hemoglobin Concent 35.4, Red Cell Distribution Width 14.4, Platelet Count 242, Mean Platelet Volume 5.9L, Neutrophils (%) (Auto) , Lymphocytes (%) (Auto) , Monocytes (%) (Auto) , Eosinophils (%) (Auto) , Basophils (%) (Auto) , Differential Total Cells Counted 100, Neutrophils % (Manual) 93H, Lymphocytes % (Manual) 5L, Monocytes % (Manual) 2, Eosinophils % (Manual) 0, Basophils % (Manual) 0, Band Neutrophils 0, Platelet Estimate Adequate, Platelet Morphology Normal, Polychromasia 1+, Hypochromasia 1+, Sodium Level 141, Potassium Level 3.6, Chloride Level 100, Carbon Dioxide Level 26, Anion Gap 15, Blood Urea Nitrogen 93H, Creatinine 3.4H, Estimat Glomerular Filtration Rate 14.5, Glucose Level 104, Calcium Level 8.3L, Phosphorus Level 5.4H, Total Bilirubin 0.4, Aspartate Amino Transf (AST/SGOT) 27, Alanine Aminotransferase (ALT/SGPT) 17, Alkaline Phosphatase 231H, Total Protein 6.7, Albumin 2.2L, Globulin 4.5, Albumin/Globulin Ratio 0.5L, Random Vancomycin Level 24.0 01/21/20 12:36: POC Whole Blood Glucose 97 Height (Feet): 5 Height (Inches): 6.00 Weight (Pounds): 150 General Appearance: no apparent distress EENT: other - Trach to vent Cardiovascular: normal rate Respiratory/Chest: decreased breath sounds Abdomen: distended Johnny Houston MD Jan 21, 2020 15:45
[2020-01-21 16:00] VITALS: BP 155/71
--- NOTE | 2020-01-21 16:00 | NUR ---
NURSE NOTES: Pt stable no resp distress presented ,pt with large BM ,kept dry and cleaned, pulled up and repositioned.
--- NOTE | 2020-01-21 19:20 | NUR ---
NURSE HAND-OFF REPORT: Important Events on Shift:N/A Patient Status: stable Diet: Nepro at 35 ml/hr GT Pending Orders: N/AN/A Pending Results/Labs: Pending MD notification:N/A Latest Vital Signs: Temperature 98.8 , Pulse 76 , B/P 155 /71 , Respiratory Rate 18 , O2 SAT 96 , Mechanical Ventilator, O2 Flow Rate . Vital Sign Comment: stable EKG Rhythm: Sinus Rhythm Rhythm change?: N MD Notified?: Gabriel -Dr. Екатерина HATFIELD Response: Order Received& Read Back Latest Chavarria Fall Score: 70 Fall Risk: High Risk Safety Measures: Call light Within Reach, Bed Alarm Zone 2, Side Rails Side Rails x2, Bed position Low and Locked. Fall Precautions: Yellow Socks Report given to Joseph Moraes RN..
--- NOTE | 2020-01-21 19:49 | NUR ---
NURSE NOTES: Received report from ERASMO Medel, pt. in bed awake, appears obtunded, no signs or symptoms of acute cardiac or respiratory distress noted, bed alarm on side rails up x's3 and safety brakes engaged, pt. appears to be tolerating current vent settings well- AC 14, TV 500, Fio2 at 40% and peep 5- no distress noted, pt. has g tube running at 35cc/hr-no residual noted, pt. has Norman draining to gravity, pt. appears clean and dry, aspiration and skin precautions observed, RT. AC 20G IV intact and patent- SL, Left wrist 22G IV intact and patent, safety measures continued, will continue with plan of care. Addendum: 01/21/20 at 1999 by SINTIA AMAYA RN RN pt. has left femoral Charlie for hemodialysis- appears intact and dry. Addendum: 01/21/20 at 210 by SINTIA AMAYA RN RN Hematuria noted in Norman- per endorsement doctor aware.
[2020-01-21 20:00] VITALS: BP 148/69
--- NOTE | 2020-01-21 20:00 | General Progress Note ---
Subjective Constitutional: Reports: no symptoms, other - Smiles HEENT: Reports: no symptoms Cardiovascular: Reports: no symptoms Respiratory: Reports: shortness of breath Gastrointestinal/Abdominal: Reports: no symptoms Genitourinary: Reports: no symptoms Neurologic/Psychiatric: Reports: no symptoms Endocrine: Reports: no symptoms Hematologic/Lymphatic: Reports: no symptoms Allergies: Coded Allergies: No Known Allergies (Unverified , 10/10/17) Objective Last 24 Hour Vital Signs Date Time Temp Pulse Resp B/P (MAP) Pulse Ox O2 Delivery O2 Flow Rate FiO2 01/21/20 17:22 155/71 01/21/20 17:20 76 155/71 01/21/20 16:00 Mechanical Ventilator Mechanical Ventilator 01/21/20 16:00 98.8 76 18 155/71 (99) 96 01/21/20 16:00 77 01/21/20 15:27 81 24 40 01/21/20 14:35 157/74 01/21/20 12:00 73 01/21/20 12:00 99.1 73 20 157/74 (101) 96 01/21/20 12:00 Mechanical Ventilator Mechanical Ventilator 01/21/20 11:56 71 20 40 01/21/20 09:48 143/71 01/21/20 08:00 74 01/21/20 08:00 99.3 71 20 143/71 (95) 100 01/21/20 08:00 Mechanical Ventilator Mechanical Ventilator 01/21/20 07:21 73 19 40 01/21/20 04:00 Mechanical Ventilator Mechanical Ventilator 01/21/20 04:00 99.5 74 20 146/81 (102) 98 01/21/20 04:00 75 01/21/20 03:30 72 20 40 01/21/20 00:12 Mechanical Ventilator Mechanical Ventilator 01/21/20 00:00 69 01/21/20 00:00 99.0 70 20 145/71 (95) 100 01/20/20 23:06 69 17 40 01/20/20 20:00 Mechanical Ventilator Mechanical Ventilator 01/20/20 20:00 97.3 80 18 124/66 (85) 96 01/20/20 20:00 86 01/20/20 20:00 40 Intake and Output 01/20/20 01/21/20 19:00 07:00 Intake Total 445 ml 35 ml Output Total 250 ml 2050 ml Balance 195 ml -2015 ml Free Water 30 ml IV Total 55 ml Tube Feeding 210 ml 35 ml Other 150 ml Output Urine Total 250 ml 50 ml Hemodialysis UF 2000 ml # Bowel Movements 1 Laboratory Tests 01/21/20 03:20: White Blood Count 20.5H, Red Blood Count 2.99L, Hemoglobin 8.6L, Hematocrit 24.3L, Mean Corpuscular Volume 81, Mean Corpuscular Hemoglobin 28.8, Mean Corpus cular Hemoglobin Concent 35.4, Red Cell Distribution Width 14.4, Platelet Count 242, Mean Platelet Volume 5.9L, Neutrophils (%) (Auto) , Lymphocytes (%) (Auto) , Monocytes (%) (Auto) , Eosinophils (%) (Auto) , Basophils (%) (Auto) , Di fferential Total Cells Counted 100, Neutrophils % (Manual) 93H, Lymphocytes % (Manual) 5L, Monocytes % (Manual) 2, Eosinophils % (Manual) 0, Basophils % (Manual) 0, Band Neutrophils 0, Platelet Estimate Adequate, Platelet Morphology Normal, Polychromasia 1+, Hypochromasia 1+, Sodium Level 141, Potassium Level 3.6, Chloride Level 100, Carbon Dioxide Level 26, Anion Gap 15, Blood Urea Nitrogen 93H, Creatinine 3.4H, Estimat Glomerular Filtration Rate 14.5, Glucose Level 104, Calcium Level 8.3L, Phosphorus Level 5.4H, Total Bilirubin 0.4, Aspartate Amino Transf (AST/SGOT) 27, Alanine Aminotransferase (ALT/SGPT) 17, Alkaline Phosphatase 231H, Total Protein 6.7, Albumin 2.2L, Globulin 4.5, Albumin/Globulin Ratio 0.5L, Random Vancomycin Level 24.0 01/21/20 12:36: POC Whole Blood Glucose 97 01/21/20 17:27: POC Whole Blood Glucose 92 Height (Feet): 5 Height (Inches): 6.00 Weight (Pounds): 150 General Appearance: alert, lethargic, other - Attentive EENT: normal ENT inspection Neck: supple Cardiovascular: normal rate, regular rhythm, no JVD Respiratory/Chest: decreased breath sounds, rhonchi - bilaterally Abdomen: normal bowel sounds, non tender, soft, no organomegaly, no mass Neurologic: alert, responsive, aphasia Skin: warm/dry Assessment/Plan Status Narrative Patient continue progressive improvement clinically this is visited visibly from day today in regard to patient eye contact attention span and facial reaction febrile hemodynamically stable but moderately short of breath and show only mild will continue with the same clinical management dialysis daily and double antibiotic repeat laboratory tests and chest x-ray will be done in a.m.. Lucas Vera MD, MD Jan 21, 2020 19:59
[2020-01-21] MEDS: Dyna-Hex 2% Top Sol 2oz TOPIC SCH (20:16)
--- NOTE | 2020-01-21 20:20 | NUR ---
NURSE NOTES: cooling measures applied for temp 100.4 axillary-will continue to monitor pt. and f/u with .
--- NOTE | 2020-01-21 20:32 | NUR ---
NURSE NOTES: left message for DR. Dong- for order for Tylenol as pt. has a temp- awaiting for call back from doctor.
--- NOTE | 2020-01-21 20:36 | NUR ---
NURSE NOTES: per DR. Dong to order Tylenol 500mg Q6 hrs- prn fever.
[2020-01-21] MEDS: Acetaminophen 650mg/20.3ml GT PRN (20:59)
--- NOTE | 2020-01-21 21:31 | NUR ---
NURSE NOTES: temp now 99.2 axillary- appears to be trending down- cooling measures and Tylenol appears to be effective- will continue to monitor pt. and with plan of care.
--- NOTE | 2020-01-21 22:00 | NUR ---
NURSE NOTES: central line dressing completely soiled- changed dressing.
--- NOTE | 2020-01-21 22:30 | NUR ---
NURSE NOTES: bed bath given linens changed, oral care provided, repositioned and turned pt- pt. appears to be tolerating current vent settings- will continue to monitor pt.
--- NOTE | 2020-01-21 23:06 | NUR ---
NURSE NOTES: pt. noted to have dark tarry stool in large amount- will notify .
--- NOTE | 2020-01-21 23:09 | NUR ---
NURSE NOTES: left message for Dr. Dong- awaiting for call back from doctor.
--- NOTE | 2020-01-21 23:24 | NUR ---
NURSE NOTES: per DR. Dong to do stat CBC now- orders carried out- and notified Jt at lab.
[2020-01-21 23:48] LABS: HEMATOCRIT 24.7 % (37.0-47.0); HEMOGLOBIN 8.8 G/DL (12.0-16.0); MEAN CORPUSCULAR VOLUME 82 FL (80-99); PLATELET COUNT 202 K/UL (150-450); RED BLOOD COUNT 3.02 M/UL (4.20-5.40); RED CELL DISTRIBUTION WIDTH 15.3 % (11.6-14.8); WHITE BLOOD COUNT 20.7 K/UL (4.8-10.8)
[2020-01-22] VITALS: BP 153/70
--- NOTE | 2020-01-22 01:36 | Cardiology Progress Note ---
Subjective DATE OF SERVICE: Jan 21, 2020 Remains in atrial fibrillation; rates now better controlled. Occasional PVC's - non-sustained BP parameters in high normal range. Off amiodarone Full vent support via trach CXR: large left effusion Objective Last 24 Hour Vital Signs Date Time Temp Pulse Resp B/P (MAP) Pulse Ox O2 Delivery O2 Flow Rate FiO2 01/22/20 00:00 Mechanical Ventilator Mechanical Ventilator 01/22/20 00:00 98.2 82 22 153/70 (97) 100 01/22/20 00:00 40 01/21/20 23:00 79 28 50 01/21/20 21:29 99.2 01/21/20 20:00 Mechanical Ventilator Mechanical Ventilator 01/21/20 20:00 100.4 85 18 148/69 (95) 97 01/21/20 20:00 40 01/21/20 19:56 80 01/21/20 19:00 84 32 50 01/21/20 17:22 155/71 01/21/20 17:20 76 155/71 01/21/20 16:00 Mechanical Ventilator Mechanical Ventilator 01/21/20 16:00 98.8 76 18 155/71 (99) 96 01/21/20 16:00 77 01/21/20 15:27 81 24 40 01/21/20 14:35 157/74 01/21/20 12:00 73 01/21/20 12:00 99.1 73 20 157/74 (101) 96 01/21/20 12:00 Mechanical Ventilator Mechanical Ventilator 01/21/20 11:56 71 20 40 01/21/20 09:48 143/71 01/21/20 08:00 74 01/21/20 08:00 99.3 71 20 143/71 (95) 100 01/21/20 08:00 Mechanical Ventilator Mechanical Ventilator 01/21/20 07:21 73 19 40 01/21/20 04:00 Mechanical Ventilator Mechanical Ventilator 01/21/20 04:00 99.5 74 20 146/81 (102) 98 01/21/20 04:00 75 01/21/20 03:30 72 20 40 ROS: unchanged for 01/17/20 HEENT: Mechanically Ventilated, Thick Trach secretions RHYTHM: Afib LUNGS: diminished breath sounds - left, bilateral rhonchi CARDIAC: normal S1 and S2, irregularly irregular ABDOMEN: normal bowel sounds, non tender, soft, G-Tube intact EXTREMITIES: normal inspection, trace edema Laboratory Tests Test 01/21/20 03:20 01/21/20 12:36 01/21/20 17:27 01/21/20 23:29 White Blood Count 20.5 K/UL (4.8-10.8) H Red Blood Count 2.99 M/UL (4.20-5.40) L Hemoglobin 8.6 G/DL (12.0-16.0) L Hematocrit 24.3 % (37.0-47.0) L Mean Corpuscular Volume 81 FL (80-99) Mean Corpuscular Hemoglobin 28.8 PG (27.0-31.0) Mean Corpuscular Hemoglobin Concent 35.4 G/DL (32.0-36.0) Red Cell Distribution Width 14.4 % (11.6-14.8) Platelet Count 242 K/UL (150-450) Mean Platelet Volume 5.9 FL (6.5-10.1) L Neutrophils (%) (Auto) % (45.0-75.0) Lymphocytes (%) (Auto) % (20.0-45.0) Monocytes (%) (Auto) % (1.0-10.0) Eosinophils (%) (Auto) % (0.0-3.0) Basophils (%) (Auto) % (0.0-2.0) Differential Total Cells Counted 100 Neutrophils % (Manual) 93 % (45-75) H Lymphocytes % (Manual) 5 % (20-45) L Monocytes % (Manual) 2 % (1-10) Eosinophils % (Manual) 0 % (0-3) Basophils % (Manual) 0 % (0-2) Band Neutrophils 0 % (0-8) Platelet Estimate Adequate Platelet Morphology Normal Polychromasia 1+ Hypochromasia 1+ Sodium Level 141 MMOL/L (136-145) Potassium Level 3.6 MMOL/L (3.5-5.1) Chloride Level 100 MMOL/L (98-107) Carbon Dioxide Level 26 MMOL/L (21-32) Anion Gap 15 mmol/L (5-15) Blood Urea Nitrogen 93 mg/dL (7-18) H Creatinine 3.4 MG/DL (0.55-1.30) H Estimat Glomerular Filtration Rate 14.5 mL/min (>60) Glucose Level 104 MG/DL (74-106) Calcium Level 8.3 MG/DL (8.5-10.1) L Phosphorus Level 5.4 MG/DL (2.5-4.9) H Total Bilirubin 0.4 MG/DL (0.2-1.0) Aspartate Amino Transf (AST/SGOT) 27 U/L (15-37) Alanine Aminotransferase (ALT/SGPT) 17 U/L (12-78) Alkaline Phosphatase 231 U/L (46-116) H Total Protein 6.7 G/DL (6.4-8.2) Albumin 2.2 G/DL (3.4-5.0) L Globulin 4.5 g/dL Albumin/Globulin Ratio 0.5 (1.0-2.7) L Random Vancomycin Level 24.0 ug/mL POC Whole Blood Glucose 97 MG/DL (74-106) 92 MG/DL (74-106) 86 MG/DL (74-106) Test 01/21/20 23:35 White Blood Count 20.7 K/UL (4.8-10.8) H Red Blood Count 3.02 M/UL (4.20-5.40) L Hemoglobin 8.8 G/DL (12.0-16.0) L Hematocrit 24.7 % (37.0-47.0) L Mean Corpuscular Volume 82 FL (80-99) Mean Corpuscular Hemoglobin 29.1 PG (27.0-31.0) Mean Corpuscular Hemoglobin Concent 35.5 G/DL (32.0-36.0) Red Cell Distribution Width 15.3 % (11.6-14.8) H Platelet Count 202 K/UL (150-450) Mean Platelet Volume 5.6 FL (6.5-10.1) L Neutrophils (%) (Auto) % (45.0-75.0) Lymphocytes (%) (Auto) % (20.0-45.0) Monocytes (%) (Auto) % (1.0-10.0) Eosinophils (%) (Auto) % (0.0-3.0) Basophils (%) (Auto) % (0.0-2.0) Differential Total Cells Counted 100 Neutrophils % (Manual) 85 % (45-75) H Lymphocytes % (Manual) 10 % (20-45) L Monocytes % (Manual) 2 % (1-10) Eosinophils % (Manual) 0 % (0-3) Basophils % (Manual) 0 % (0-2) Band Neutrophils 3 % (0-8) Platelet Estimate Adequate Platelet Morphology Normal Microbiology Date/Time Source Procedure Growth Status 01/19/20 04:00 Stool Clostridium difficile Toxin Assay - Final Complete 01/19/20 04:00 Sputum Gram Stain - Final Resulted 01/19/20 04:00 Sputum Culture - Preliminary Gram Negative Bacillus 1 Resulted Assessment/Plan Assessment/Plan Chronic respiratory failure with trach Severe sepsis PAFib with rapid ventric response now rate controlled. Ischemic cardiomyopathy - hx CABG and s/p NSTEMI in Dec 2019. Conduction system disease of the heart Hx of permanent pacemaker explant Acute on chronic systolic and diastolic CHF Pleural effusion Titrate beta flori dosing Anti-failure and anti-anginal regimen with titration Vent support Abx per ID Continuous cardiac monitoring Deni Willams MD Jan 22, 2020 01:36
[2020-01-22 04:00] VITALS: BP 152/76
[2020-01-22 06:31] LABS: ALANINE AMINOTRANSFERASE 18 U/L (12-78); ALBUMIN 2.2 G/DL (3.4-5.0); ALBUMIN/GLOBULIN RATIO 0.5 (1.0-2.7); ALKALINE PHOSPHATASE 382 U/L (46-116); AMYLASE 465 U/L (25-115); ANION GAP 16 mmol/L (5-15); ASPARTATE AMINO TRANSFERASE 36 U/L (15-37); BILIRUBIN,TOTAL 0.5 MG/DL (0.2-1.0); BLOOD UREA NITROGEN 108 mg/dL (7-18); CALCIUM 8.1 MG/DL (8.5-10.1); CARBON DIOXIDE 24 MMOL/L (21-32); CHLORIDE 100 MMOL/L (98-107); CREATININE 3.7 MG/DL (0.55-1.30); POTASSIUM 3.5 MMOL/L (3.5-5.1); SODIUM 140 MMOL/L (136-145)
[2020-01-22 06:35] LABS: HEMATOCRIT 23.5 % (37.0-47.0); HEMOGLOBIN 8.4 G/DL (12.0-16.0); MEAN CORPUSCULAR VOLUME 81 FL (80-99); PLATELET COUNT 190 K/UL (150-450); RED BLOOD COUNT 2.92 M/UL (4.20-5.40); RED CELL DISTRIBUTION WIDTH 16.3 % (11.6-14.8); WHITE BLOOD COUNT 19.8 K/UL (4.8-10.8)
--- NOTE | 2020-01-22 06:44 | General Progress Note ---
Subjective ROS Limited/Unobtainable: No Allergies: Coded Allergies: No Known Allergies (Unverified , 10/10/17) Objective Last 24 Hour Vital Signs Date Time Temp Pulse Resp B/P (MAP) Pulse Ox O2 Delivery O2 Flow Rate FiO2 01/22/20 04:00 Mechanical Ventilator Mechanical Ventilator 01/22/20 04:00 98.0 83 22 152/76 (101) 99 01/22/20 04:00 40 01/22/20 03:32 80 01/22/20 03:20 79 23 50 01/22/20 00:00 Mechanical Ventilator Mechanical Ventilator 01/22/20 00:00 98.2 82 22 153/70 (97) 100 01/22/20 00:00 40 01/21/20 23:30 80 01/21/20 23:00 79 28 50 01/21/20 21:29 99.2 01/21/20 20:00 Mechanical Ventilator Mechanical Ventilator 01/21/20 20:00 100.4 85 18 148/69 (95) 97 01/21/20 20:00 40 01/21/20 19:56 80 01/21/20 19:00 84 32 50 01/21/20 17:22 155/71 01/21/20 17:20 76 155/71 01/21/20 16:00 Mechanical Ventilator Mechanical Ventilator 01/21/20 16:00 98.8 76 18 155/71 (99) 96 01/21/20 16:00 77 01/21/20 15:27 81 24 40 01/21/20 14:35 157/74 01/21/20 12:00 73 01/21/20 12:00 99.1 73 20 157/74 (101) 96 01/21/20 12:00 Mechanical Ventilator Mechanical Ventilator 01/21/20 11:56 71 20 40 01/21/20 09:48 143/71 01/21/20 08:00 74 01/21/20 08:00 99.3 71 20 143/71 (95) 100 01/21/20 08:00 Mechanical Ventilator Mechanical Ventilator 01/21/20 07:21 73 19 40 Intake and Output 01/21/20 01/22/20 19:00 07:00 Intake Total 995 ml 435 ml Output Total 151 ml 100 ml Balance 844 ml 335 ml Free Water 300 ml 50 ml Tube Feeding 455 ml 385 ml Other 240 ml Output Urine Total 150 ml 100 ml Stool Total 1 ml # Bowel Movements 1 Laboratory Tests 01/21/20 12:36: POC Whole Blood Glucose 97 01/21/20 17:27: POC Whole Blood Glucose 92 01/21/20 23:29: POC Whole Blood Glucose 86 01/21/20 23:35: White Blood Count 20.7H, Red Blood Count 3.02L, Hemoglobin 8.8L, Hematocrit 24.7L, Mean Corpuscular Volume 82, Mean Corpuscular Hemoglobin 29.1, Mean Corpuscular Hemoglobin Concent 35.5, Red Cell Distribution Width 15.3H, Platelet Count 202, Mean Platelet Volume 5.6L, Neutrophils (%) (Auto) , Lymphocytes (%) (Auto) , Monocytes (%) (Auto) , Eosinophils (%) (Auto) , Basophils (%) (Auto) , Differential Total Cells Counted 100, Neutrophils % (Manual) 85H, Lymphocytes % (Manual) 10L, Monocytes % (Manual) 2, Eosinophils % (Manual) 0, Basophils % (Manual) 0, Band Neutrophils 3, Platelet Estimate Adequate, Platelet Morphology Normal 01/22/20 03:55: White Blood Count 19.8H, Red Blood Count 2.92L, Hemoglobin 8.4L, Hematocrit 23.5L, Mean Corpuscular Volume 81, Mean Corpuscular Hemoglobin 28.7, Mean Corpuscular Hemoglobin Concent 35.5, Red Cell Distribution Width 16.3H, Platelet Count 190, Mean Platelet Volume 6.0L, Neutrophils (%) (Auto) , Lymphocytes (%) (Auto) , Monocytes (%) (Auto) , Eosinophils (%) (Auto) , Basophils (%) (Auto) , Neutrophils % (Manual) [Pending], Lymphocytes % (Manual) [Pending], Platelet Estimate [Pending], Platelet Morphology [Pending], Sodium Level 140, Potassium Level 3.5, Chloride Level 100, Carbon Dioxide Level 24, Anion Gap 16H, Blood Urea Nitrogen 108H, Creatinine 3.7H, Estimat Glomerular Filtration Rate 13.1, Glucose Level 95, Calcium Level 8.1L, Total Bilirubin 0.5, Aspartate Amino Transf (AST/SGOT) 36, Alanine Aminotransferase (ALT/SGPT) 18, Alkaline Phosphatase 382H, Total Protein 6.9, Albumin 2.2L, Globulin 4.7, Albumin/Globulin Ratio 0.5L, Amylase Level 465H, Lipase > 2000H 01/22/20 05:11: POC Whole Blood Glucose [Pending] Height (Feet): 5 Height (Inches): 6.00 Weight (Pounds): 150 General Appearance: lethargic EENT: normal ENT inspection Neck: supple Cardiovascular: normal rate Respiratory/Chest: decreased breath sounds Abdomen: soft, hypoactive bowel sounds Extremities: non-tender Assessment/Plan Problem List: (1) Hx of CABG ICD Codes: Z95.1 - Presence of aortocoronary bypass graft SNOMED: 268357951, 105292796 (2) History of tracheostomy ICD Codes: Z98.890 - Other specified postprocedural states SNOMED: 365442800, 649074332 (3) PEG (percutaneous endoscopic gastrostomy) status ICD Codes: Z93.1 - Gastrostomy status SNOMED: 770931553, 107778710 (4) S/P aortic dissection repair ICD Codes: Z98.890 - Other specified postprocedural states SNOMED: 330383690, 591529309 (5) Renal failure ICD Codes: N19 - Unspecified kidney failure SNOMED: 91290850, 165253718 (6) Anemia ICD Codes: D64.9 - Anemia, unspecified SNOMED: 494603187 Assessment/Plan: not stable for GI procedures ppi blood transfusion fu labs EGD when more stable GT topical care low dose GTF tolerated fu nephrology HD per nephrology repeat amylase and lipase recommend hospice eval had a bloody stool last night>>fu CBC today Inder Mccauley MD Jan 22, 2020 06:44
--- NOTE | 2020-01-22 06:45 | NUR ---
NURSE NOTES: Dr. Mccauley called to get pt. status- notified him of pt. noted to have dark tarry stool in large amount- yesterday evening- no new orders given, but okay to continue tube feeding- doctor will f/u.
--- NOTE | 2020-01-22 07:10 | NUR ---
Received report from ERASMO Ruiz. Patient is on bed, no signs of grimacing and distress noted. Patient is on vent-trache S7 with settings of AC 14, Vt 500, FiO2 40%, PEEP of 5, tolerating well. Patient has a raymond catheter, draining blood urine, patent and intact. Patient has a L fem arden exclusively for dialysis, and a R AC 20, L wrist 22 g, patent, intact, saline locked. HOB is elevated, bed is on lowest position, locked, side rails up, call light within reach. patient will continue to be monitored.
--- NOTE | 2020-01-22 07:13 | NUR ---
NURSE HAND-OFF REPORT: Important Events on Shift:fever- resolved now Patient Status: fair Diet: nepro Pending Orders: Pending Results/Labs: Pending MD notification: Latest Vital Signs: Temperature 98.0 , Pulse 83 , B/P 152 /76 , Respiratory Rate 22 , O2 SAT 99 , Mechanical Ventilator, O2 Flow Rate . Vital Sign Comment: EKG Rhythm: Sinus Rhythm Rhythm change?: N MD Notified?: MD Response: Latest Chavarria Fall Score: 70 Fall Risk: High Risk Safety Measures: Call light Within Reach, Bed Alarm Zone 2, Side Rails Side Rails x2, Bed position Low and Locked. Fall Precautions: Yellow Socks Report given to Jose C Garcia- aware to f/u on any abnormal am labs.
[2020-01-22 08:00] VITALS: BP 160/85
--- NOTE | 2020-01-22 08:39 | Infectious Diseases Prog Note ---
Assessment/Plan 49yo F with: AF Sepsis Leukocytosis Hypoxia on vent Pneumonia c/b L pleural effusion (recurrent, prior determined to be transudative) Volume overload, BNP >35,0000, likely 2/2 progressive CKD --> ESRD ?Pancreatitis, Lipase >2000 Acute anemia to 5s CONS bacteremia, ?contaminant Aflutter w/ RVR 01/13 BCx 2/2 +S. epi COVID PCR neg Flu neg CXR: Large left pleural effusion. Bilateral interstitial and airspace infiltrates versus edema MRSA nares neg 01/16 BCx NTD 01/17 BCx 02/14 +Staph auricularis (skin colonizer) 01/18 Resp cx +MDR CRE PsA (S-gent) 01/18 C.dif neg 01/18 CXR: Similar opacification of the left hemithorax likely representing combination of pleural effusion with atelectasis versus pneumonia/edema. Decreased but persistent hazy opacity throughout the right lung may represent edema versus infectious/inflammatory process. 01/20 BCx NTD JAVIER on CKD On previous admission Sep-Oct 2019 required HD for short period Going to start HD this admission again R/o COVID 01/14 COVID PCR neg 12/29 neg at SNF per report H/o UTI 11/27 u/a wbc 30-40, nit neg, leuk +3; ucx ESBL P. mirablis, ESBL M. morganii 09/15/19 u/a wbc tnct, nit neg, leuk +3; ucx >100k MDR P. stuarti (S Ceftriaxone, Meropenem) 10/07 u/a wbc tnct, nit neg, leuk ; ucx >100k VRE 10/15/19 u/a wbc tnct; ucx >100k ESBL P. stuarti (S ertapenem, aztreonam) H/o transudative pleural effusion 11/28 Sp Thora (w: 169, PMN: 2%, L: 49% , LDH: 57, prot 2.5); cx Neg H/o PNA 10/15/19 Resp cx ESBL P. mirabilis, MDR P.a. (S only to Gent) 09/22 Resp cx + MDR PsA (S-gent; I-colistin; R-levofloxacin, Zosyn, angelo) 09/16/19 Sp cx ESBL P. mirablis H/o PPM site (pocket) infection and pocket abscess 2ry to S. epi-11/2018, sp >6weeks IV vancomycin 11/27 SP ABBIE: no evidence for vegetation on any of the valves 11/26/18 SP PPM removal: OR findings:The fibrous capsule enclosing the generator was then opened and there was a [id number] amount of yellowish fluid drainage. The generator was then removed.Atrial and ventricular leads were detached. The necrotic tissue of the pocket was then removed and the pocket was flushed with an antibiotic solution. Capsule, wound tissue and lead tip cx: Neg 2d echo: no vegetation seen US chest: 4.6 x 3.4 x 0.9 cm hypoechoic/anechoic area overlying left chest pacemaker power pack. This could represent either a discrete fluid collection or a focal area of very edematous tissue. Infected fluid pocket also possible. 11/18 Bcx / S. epi; 11/20 Bcx neg; 11/24 Bcx Neg; 11/27 Bcx Neg CAD s/p CABG GERD/gastritis Afib HTN Dysphagia sp GT Aortic dissection s/p repair 2017 S/p PPM Parkinson's Disease Schizophrenia Anxiety COPD Chronic resp failure s/p trach Hx of tracheal bleeding [place] resident ([facility]) VRE and MRSA colonized Plan: Start inhaled tobramycin #1 given MDR PsA in resp cx Cont meropenem #6 Cont vanco #8 given CONS/GPC bacteremia F/u repeat BCx 01/19 given BCx from 01/17 02/14 +CONS Trend WBC Trend resp status, secretions Recommend volume removal given BNP >35k, agree with HD initiation ?Pancreatitis, lipase >2000, appreciate GI input 01/16 SP Zosyn #2 01/14 SP dex 10mg in ED 12/10 SP IV Gentamycin #10 12/07 SP Meropenem #10 12/01 SP IV Vancomycin #5 11/28 Sp Cefepime #2 and IV Gentamycin x1 Monitor CBC/CMP Monitor temp curve, hemodynamics Monitor resp status D/w RN Thank you for this consult. [facility] will continue to follow. Subjective Allergies: Coded Allergies: No Known Allergies (Unverified , 10/10/17) Tmax 100.4 WBC 19, slightly improving NAD on vent Moderate to thick secretions per RT Objective Last 24 Hour Vital Signs Date Time Temp Pulse Resp B/P (MAP) Pulse Ox O2 Delivery O2 Flow Rate FiO2 01/22/20 04:00 Mechanical Ventilator Mechanical Ventilator 01/22/20 04:00 98.0 83 22 152/76 (101) 99 01/22/20 04:00 40 01/22/20 03:32 80 01/22/20 03:20 79 23 50 01/22/20 00:00 Mechanical Ventilator Mechanical Ventilator 01/22/20 00:00 98.2 82 22 153/70 (97) 100 01/22/20 00:00 40 01/21/20 23:30 80 01/21/20 23:00 79 28 50 01/21/20 21:29 99.2 01/21/20 20:00 Mechanical Ventilator Mechanical Ventilator 01/21/20 20:00 100.4 85 18 148/69 (95) 97 01/21/20 20:00 40 01/21/20 19:56 80 01/21/20 19:00 84 32 50 01/21/20 17:22 155/71 01/21/20 17:20 76 155/71 01/21/20 16:00 Mechanical Ventilator Mechanical Ventilator 01/21/20 16:00 98.8 76 18 155/71 (99) 96 01/21/20 16:00 77 01/21/20 15:27 81 24 40 01/21/20 14:35 157/74 01/21/20 12:00 73 01/21/20 12:00 99.1 73 20 157/74 (101) 96 01/21/20 12:00 Mechanical Ventilator Mechanical Ventilator 01/21/20 11:56 71 20 40 01/21/20 09:48 143/71 Height (Feet): 5 Height (Inches): 6.00 Weight (Pounds): 150 Gen: NAD HEENT: NCAT, +trach CV: RRR Pulm: CTAB on vent Abd: Non-distended, +PEG Ext: No c/c/e Skin: No visible rashes Neuro: Awake, minimally interactive Lines: L fem HD cath Microbiology Date/Time Source Procedure Growth Status 01/21/20 05:20 Blood Blood Culture - Preliminary NO GROWTH AFTER 24 HOURS Resulted Laboratory Tests Test 01/21/20 12:36 01/21/20 17:27 01/21/20 23:29 01/21/20 23:35 POC Whole Blood Glucose 97 MG/DL (74-106) 92 MG/DL (74-106) 86 MG/DL (74-106) White Blood Count 20.7 K/UL (4.8-10.8) H Red Blood Count 3.02 M/UL (4.20-5.40) L Hemoglobin 8.8 G/DL (12.0-16.0) L Hematocrit 24.7 % (37.0-47.0) L Mean Corpuscular Volume 82 FL (80-99) Mean Corpuscular Hemoglobin 29.1 PG (27.0-31.0) Mean Corpuscular Hemoglobin Concent 35.5 G/DL (32.0-36.0) Red Cell Distribution Width 15.3 % (11.6-14.8) H Platelet Count 202 K/UL (150-450) Mean Platelet Volume 5.6 FL (6.5-10.1) L Neutrophils (%) (Auto) % (45.0-75.0) Lymphocytes (%) (Auto) % (20.0-45.0) Monocytes (%) (Auto) % (1.0-10.0) Eosinophils (%) (Auto) % (0.0-3.0) Basophils (%) (Auto) % (0.0-2.0) Differential Total Cells Counted 100 Neutrophils % (Manual) 85 % (45-75) H Lymphocytes % (Manual) 10 % (20-45) L Monocytes % (Manual) 2 % (1-10) Eosinophils % (Manual) 0 % (0-3) Basophils % (Manual) 0 % (0-2) Band Neutrophils 3 % (0-8) Platelet Estimate Adequate Platelet Morphology Normal Test 01/22/20 03:55 01/22/20 05:11 White Blood Count 19.8 K/UL (4.8-10.8) H Red Blood Count 2.92 M/UL (4.20-5.40) L Hemoglobin 8.4 G/DL (12.0-16.0) L Hematocrit 23.5 % (37.0-47.0) L Mean Corpuscular Volume 81 FL (80-99) Mean Corpuscular Hemoglobin 28.7 PG (27.0-31.0) Mean Corpuscular Hemoglobin Concent 35.5 G/DL (32.0-36.0) Red Cell Distribution Width 16.3 % (11.6-14.8) H Platelet Count 190 K/UL (150-450) Mean Platelet Volume 6.0 FL (6.5-10.1) L Neutrophils (%) (Auto) % (45.0-75.0) Lymphocytes (%) (Auto) % (20.0-45.0) Monocytes (%) (Auto) % (1.0-10.0) Eosinophils (%) (Auto) % (0.0-3.0) Basophils (%) (Auto) % (0.0-2.0) Neutrophils % (Manual) Pending Lymphocytes % (Manual) Pending Platelet Estimate Pending Platelet Morphology Pending Sodium Level 140 MMOL/L (136-145) Potassium Level 3.5 MMOL/L (3.5-5.1) Chloride Level 100 MMOL/L (98-107) Carbon Dioxide Level 24 MMOL/L (21-32) Anion Gap 16 mmol/L (5-15) H Blood Urea Nitrogen 108 mg/dL (7-18) H Creatinine 3.7 MG/DL (0.55-1.30) H Estimat Glomerular Filtration Rate 13.1 mL/min (>60) Glucose Level 95 MG/DL (74-106) Calcium Level 8.1 MG/DL (8.5-10.1) L Total Bilirubin 0.5 MG/DL (0.2-1.0) Aspartate Amino Transf (AST/SGOT) 36 U/L (15-37) Alanine Aminotransferase (ALT/SGPT) 18 U/L (12-78) Alkaline Phosphatase 382 U/L (46-116) H Total Protein 6.9 G/DL (6.4-8.2) Albumin 2.2 G/DL (3.4-5.0) L Globulin 4.7 g/dL Albumin/Globulin Ratio 0.5 (1.0-2.7) L Amylase Level 465 U/L (25-115) H Lipase > 2000 U/L (73-393) H POC Whole Blood Glucose Pending Current Medications Medications (Trade) Dose Ordered Sig/Penny Route PRN Reason Start Time Stop Time Status Last Admin Dose Admin Acetaminophen (Tylenol) 500 mg Q6H PRN GT FEVER 01/21/20 20:45 02/20/20 20:44 01/21/20 20:59 Amlodipine Besylate (Norvasc) 5 mg DAILY GT 01/21/20 15:45 02/20/20 15:44 01/21/20 17:20 Aspirin (ASA) 81 mg DAILY GT 01/20/20 09:00 03/05/20 08:59 01/21/20 09:42 Atorvastatin Calcium (Lipitor) 10 mg BEDTIME GT 01/17/20 21:00 04/16/20 20:59 01/21/20 20:17 Chlorhexidine Gluconate (Ling-Hex 2%) 1 applic DAILY@1999 TOPIC 01/17/20 20:00 04/16/20 19:59 01/21/20 20:16 Dextrose (Dextrose 50%) 25 ml Q30M PRN IV Hypoglycemia 01/15/20 22:15 04/14/20 22:14 Dextrose (Dextrose 50%) 50 ml Q30M PRN IV Hypoglycemia 01/15/20 22:15 04/14/20 22:14 Isosorbide Dinitrate (Isordil) 10 mg TID GT 01/20/20 09:00 02/19/20 08:59 01/21/20 17:22 Lansoprazole (Prevacid) 30 mg BID GT 01/19/20 18:00 02/18/20 17:59 01/21/20 17:20 Meropenem 500 mg/ Sodium Chloride 55 ml @ 110 mls/hr Q24H IVPB 01/22/20 10:30 01/27/20 10:29 Metoclopramide HCl (Reglan) 5 mg Q6H PRN IVP Nausea & Vomiting 01/15/20 22:15 02/14/20 22:14 Metoprolol Tartrate (Lopressor) 12.5 mg Q12HR ORAL 01/22/20 09:00 04/21/20 08:59 Vancomycin HCl (Vanco pharmacy to dose) 1 ea DAILY PRN MISC Per rx protocol 01/15/20 22:15 02/14/20 22:14 Zinc Oxide (Zinc Oxide) 1 applic TIDPRN PRN TOPIC diogenes GT 01/16/20 13:15 04/15/20 13:14 01/16/20 14:55 Ro Pack M.D. Jan 22, 2020 08:38
[2020-01-22] MEDS ORDERED: Tobramyicin Rx to dose MISC PRN (08:45)
[2020-01-22] MEDS: Metoprolol Tartrate 12.5mg TAB ORAL SCH ×2 (09:13→20:40)
[2020-01-22] MEDS: Aspirin Baby 81mg GT SCH (09:13)
[2020-01-22] MEDS: Tobramycin for inhalation INH SCH ×2 (11:28→21:00)
--- NOTE | 2020-01-22 11:36 | Pulmonology Progress Note ---
Subjective ROS Limited/Unobtainable: No Interval Events: Doing well; Constitutional: Reports: no symptoms HEENT: Repors: no symptoms Respiratory: Reports: no symptoms Cardiovascular: Reports: no symptoms Gastrointestinal/Abdominal: Reports: no symptoms Allergies: Coded Allergies: No Known Allergies (Unverified , 10/10/17) All Systems: reviewed and negative except above Objective Last 24 Hour Vital Signs Date Time Temp Pulse Resp B/P (MAP) Pulse Ox O2 Delivery O2 Flow Rate FiO2 01/22/20 09:13 92 155/70 01/22/20 09:13 155/70 01/22/20 09:12 92 155/70 01/22/20 08:15 100 01/22/20 08:00 99.3 92 20 160/85 (110) 94 01/22/20 08:00 Mechanical Ventilator Mechanical Ventilator 01/22/20 07:19 94 31 50 01/22/20 04:00 Mechanical Ventilator Mechanical Ventilator 01/22/20 04:00 98.0 83 22 152/76 (101) 99 01/22/20 04:00 40 01/22/20 03:32 80 01/22/20 03:20 79 23 50 01/22/20 00:00 Mechanical Ventilator Mechanical Ventilator 01/22/20 00:00 98.2 82 22 153/70 (97) 100 01/22/20 00:00 40 01/21/20 23:30 80 01/21/20 23:00 79 28 50 01/21/20 21:29 99.2 01/21/20 20:00 Mechanical Ventilator Mechanical Ventilator 01/21/20 20:00 100.4 85 18 148/69 (95) 97 01/21/20 20:00 40 01/21/20 19:56 80 01/21/20 19:00 84 32 50 01/21/20 17:22 155/71 01/21/20 17:20 76 155/71 01/21/20 16:00 Mechanical Ventilator Mechanical Ventilator 01/21/20 16:00 98.8 76 18 155/71 (99) 96 01/21/20 16:00 77 01/21/20 15:27 81 24 40 01/21/20 14:35 157/74 01/21/20 12:00 73 01/21/20 12:00 99.1 73 20 157/74 (101) 96 01/21/20 12:00 Mechanical Ventilator Mechanical Ventilator 01/21/20 11:56 71 20 40 Intake and Output 01/21/20 01/22/20 18:59 06:59 Intake Total 995 ml 470 ml Output Total 151 ml 100 ml Balance 844 ml 370 ml Free Water 300 ml 50 ml Tube Feeding 455 ml 420 ml Other 240 ml Output Urine Total 150 ml 100 ml Stool Total 1 ml # Bowel Movements 1 General Appearance: no acute distress HEENT: normocephalic, other - trach Respiratory: chest wall non-tender, other - coarse lung sounds Cardiovascular: normal rate, regular rhythm Abdomen: soft, non tender Genitourinary: other - [place] Extremities: other - trace edema Microbiology Date/Time Source Procedure Growth Status 01/21/20 05:20 Blood Blood Culture - Preliminary NO GROWTH AFTER 24 HOURS Resulted Laboratory Tests 01/21/20 12:36: POC Whole Blood Glucose 97 01/21/20 17:27: POC Whole Blood Glucose 92 01/21/20 23:29: POC Whole Blood Glucose 86 01/21/20 23:35: White Blood Count 20.7H, Red Blood Count 3.02L, Hemoglobin 8.8L, Hematocrit 24.7L, Mean Corpuscular Volume 82, Mean Corpuscular Hemoglobin 29.1, Mean Corpuscular Hemoglobin Concent 35.5, Red Cell Distribution Width 15.3H, Platelet Count 202, Mean Platelet Volume 5.6L, Neutrophils (%) (Auto) , Lymphocytes (%) (Auto) , Monocytes (%) (Auto) , Eosinophils (%) (Auto) , Basophils (%) (Auto) , Differential Total Cells Counted 100, Neutrophils % (Manual) 85H, Lymphocytes % (Manual) 10L, Monocytes % (Manual) 2, Eosinophils % (Manual) 0, Basophils % (Manual) 0, Band Neutrophils 3, Platelet Estimate Adequate, Platelet Morphology Normal 01/22/20 03:55: White Blood Count 19.8H, Red Blood Count 2.92L, Hemoglobin 8.4L, Hematocrit 23.5L, Mean Corpuscular Volume 81, Mean Corpuscular Hemoglobin 28.7, Mean Corpuscular Hemoglobin Concent 35.5, Red Cell Distribution Width 16.3H, Platelet Count 190, Mean Platelet Volume 6.0L, Neutrophils (%) (Auto) , Lymphocytes (%) (Auto) , Monocytes (%) (Auto) , Eosinophils (%) (Auto) , Basophils (%) (Auto) , Differential Total Cells Counted 100, Neutrophils % (Manual) 84H, Lymphocytes % (Manual) 14L, Monocytes % (Manual) 2, Eosinophils % (Manual) 0, Basophils % (Manual) 0, Band Neutrophils 0, Platelet Estimate Adequate, Platelet Morphology Normal, Hypochromasia 1+, Anisocytosis 1+, Sodium Level 140, Potassium Level 3.5, Chloride Level 100, Carbon Dioxide Level 24, Anion Gap 16H, Blood Urea Nitrogen 108H, Creatinine 3.7H, Estimat Glomerular Filtration Rate 13.1, Glucose Level 95, Calcium Level 8.1L, Total Bilirubin 0.5, Aspartate Amino Transf ( AST/SGOT) 36, Alanine Aminotransferase (ALT/SGPT) 18, Alkaline Phosphatase 382H, Total Protein 6.9, Albumin 2.2L, Globulin 4.7, Albumin/Globulin Ratio 0.5L, Amylase Level 465H, Lipase > 2000H 01/22/20 05:11: POC Whole Blood Glucose [Pending] Current Medications Medications (Trade) Dose Ordered Sig/Penny Route PRN Reason Start Time Stop Time Status Last Admin Dose Admin Acetaminophen (Tylenol) 500 mg Q6H PRN GT FEVER 01/21/20 20:45 02/20/20 20:44 01/21/20 20:59 Amlodipine Besylate (Norvasc) 5 mg DAILY GT 01/21/20 15:45 02/20/20 15:44 01/22/20 09:12 Aspirin (ASA) 81 mg DAILY GT 01/20/20 09:00 03/05/20 08:59 01/22/20 09:13 Atorvastatin Calcium (Lipitor) 10 mg BEDTIME GT 01/17/20 21:00 04/16/20 20:59 01/21/20 20:17 Chlorhexidine Gluconate (Ling-Hex 2%) 1 applic DAILY@2000 TOPIC 01/17/20 20:00 04/16/20 19:59 01/21/20 20:16 Dextrose (Dextrose 50%) 25 ml Q30M PRN IV Hypoglycemia 01/15/20 22:15 04/14/20 22:14 Dextrose (Dextrose 50%) 50 ml Q30M PRN IV Hypoglycemia 01/15/20 22:15 04/14/20 22:14 Isosorbide Dinitrate (Isordil) 10 mg TID GT 01/20/20 09:00 02/19/20 08:59 01/22/20 09:13 Lansoprazole (Prevacid) 30 mg BID GT 01/19/20 18:00 02/18/20 17:59 01/22/20 09:12 Meropenem 500 mg/ Sodium Chloride 55 ml @ 110 mls/hr Q24H IVPB 01/22/20 10:30 01/27/20 10:29 Metoclopramide HCl (Reglan) 5 mg Q6H PRN IVP Nausea & Vomiting 01/15/20 22:15 02/14/20 22:14 Metoprolol Tartrate (Lopressor) 12.5 mg Q12HR ORAL 01/22/20 09:00 04/21/20 08:59 01/22/20 09:13 Tobramycin Sulfate (Nebcin) 300 mg Q12HR INH 01/22/20 10:00 01/29/20 09:59 01/22/20 11:28 Vancomycin HCl ([facility] pharmacy to dose) 1 ea DAILY PRN MISC Per rx protocol 01/15/20 22:15 02/14/20 22:14 Zinc Oxide (Zinc Oxide) 1 applic TIDPRN PRN TOPIC diogenes GT 01/16/20 13:15 04/15/20 13:14 01/16/20 14:55 Assessment/Plan Assessment/Plan 1. Large left effusion. - Consider thoracentesis; however her current saturations are adequate; will defer thoracentesis due to concerns regarding trapped lung and no absolute need. 2. Chronic respiratory failure. - on trach, current setting: AC 14, VT 500, FiO2 50%, PEEP 5 - Cont AC mode - Currently saturating at 98% 3. Sepsis. - WBC 26.3 -> 20.5 4. Anemia - s/p 1 unit pRBC - Hgb 7 -> 9 -> 8.6 s/p HD Broad-spectrum antibiotics. Pulmonary hygiene. DVT and GI prophylaxes. We will follow carefully. TIme spent for this case was approximately 31 minutes Elijah Stephen MD Jan 22, 2020 11:36
[2020-01-22] MEDS: Meropenem 500 MG in NS 55 ML IVPB SCH (11:47)
--- NOTE | 2020-01-22 11:50 | NUR ---
NURSE NOTES: Dr Stephen at bedside ,ordered Thoracentesis,will call family member for consent.
[2020-01-22 12:00] VITALS: BP 147/68
--- NOTE | 2020-01-22 12:53 | NUR ---
RD ASSESSMENT & RECOMMENDATIONS SEE CARE ACTIVITY FOR COMPLETE ASSESSMENT DAILY ESTIMATED NEEDS: Needs based on Critical care, wound, renal dysfunction 56 kg abw 28-33 kcals/kg 5738-8064 total kcals W/ HD (1.5-2.0) g protein/kg 84-112 g total protein Fluid per MD NUTRITION DIAGNOSIS: * Swallowing difficulty R/T dysphagia, respiratory status as evidenced by vent dep via trach, GT Dep. * Increase kcal and pro needs r/t wound healing, renal dysfunction as evidenced by admitted w/ large, advanced sacral wound, previously stage 4, pending eval, admitted w/ JAVIER, pending HD. (CURRENT TF: Nepro @35ml/hr x24 hrs) ENTERAL NUTRITION RECOMMENDATIONS: Nepro @ 40ml/hr x 24 hrs + Prosource 1pkt QD to provide 960ml, 1728kcal, 78g+11g prot, 698ml free water * As medically appropriate, increase Nepro to goal rate of 40ml/hr x 24 hrs * Add Prosource 1pkt QD to better meet increased protein needs (additional 11g prot) * Water flush per MD/ HOB over 30 degrees ADDITIONAL RECOMMENDATIONS: * Per SNF in NOV 2019: HT=63"/ Rec daily calibrated bedscale wt * Monitor for continuity of HD: last HD 01/19 * Monitor lytes and renal fxn for improvement. * Wound care: add Nephrovite x 1, ZnSO4 220mg QD x 10 days Reynaldo BID via PEG (mix w/ 2-4 oz water); vit C per nephro * Monitor BG closely for hypoglycemia while NPO .
--- NOTE | 2020-01-22 14:07 | Pre-Procedure Note/Attestation ---
Pre-Procedure Note/Attestation Complete Prior to Procedure Planned Procedure: left Procedure Narrative: US guided bedside thoracentesis Indications for Procedure Pre-Operative Diagnosis: Pleural effusion Attestation I attest that I discussed the nature of the procedure; its benefits; risks and complications; and alternatives (and the risks and benefits of such alternatives), prior to the procedure, with the patient (or the patient's legal denial management representative). I attest that, if there was a reasonable possibility of needing a blood transfusion, the patient (or the patient's legal denial management representative) was given the [facility] standardized written summary, pursuant to the Deo Cash Blood Safety Act ([place] Health and Safety Code # 1645, as amended). I attest that I re-evaluated the patient just prior to the surgery and that there has been no change in the patient's H&P, except as documented below: Walter Mckeon MD Jan 22, 2020 14:07
--- NOTE | 2020-01-22 14:08 | Brief Operative Note ---
Immediate Post Operative Note Operative Note Chief Complaint: SOB Pre-op Diagnosis: Pleural effusion Procedure: US guided thoracentesis, Left Post-op Diagnosis: Pleural effusion Post-op Diagnosis: same as pre-op Surgeon: Walter Mckeon MD, MA Anesthesia: local Specimen: none Complications: none Fluids: None Estimated Blood Loss: minimal Implant(s) used?: No Walter Mckeon MD Jan 22, 2020 14:08
--- NOTE | 2020-01-22 14:18 | Nephrology Progress Note ---
Assessment/Plan Problem List: (1) ARF (acute renal failure) (2) Pacemaker (3) Sepsis (4) Hyponatremia Assessment (1) JAVIER (acute kidney injury) (2) Renal failure (ARF), acute on chronic (3) Feeding by G-tube (4) Tracheostomy in place (5) Electrolyte imbalance, hyponatremia (6) Anemia, severe (7) Respiratory failure, acute and chronic (8) Elevated lipase, pancreatitis (9) Elevated troponin I (10) Sepsis Plan January 21: Labs reviewed. Medication list reviewed. Next hemodialysis tomorrow. Blood pressure medication adjusted. January 20: Dialyzed yesterday. Labs reviewed. Continue per current management. Dialysis as needed. Add Norvasc to blood pressure regimen January 19: Due for dialysis today. Labs reviewed. Continue her current management. Continue to monitor renal parameters and electrolytes. January 18: Dialyzed yesterday. Labs reviewed. Renal parameters electrolytes much improved. Dialysis again tomorrow. Continue rest. January 17: Dialyzed this morning. Labs reviewed. Renal parameters and electrolyte abnormalities improved. Discussed with RN. Continue per consultants. January 16: Dialyzed yesterday. Labs improved. Next dialysis tomorrow. Continue per consultants. January 15: Patient to have dialysis catheter. Emergency dialysis for correction of uremia and electrolyte imbalances Antibiotics Transfusion Continue to monitor renal parameters Per orders Discussed with RN Subjective ROS Limited/Unobtainable: Yes Objective Objective Last 24 Hour Vital Signs Date Time Temp Pulse Resp B/P (MAP) Pulse Ox O2 Delivery O2 Flow Rate FiO2 01/22/20 13:30 140/78 01/22/20 12:00 Mechanical Ventilator Mechanical Ventilator 01/22/20 12:00 98.4 83 29 147/68 (94) 97 01/22/20 11:35 84 01/22/20 09:13 92 155/70 01/22/20 09:13 155/70 01/22/20 09:12 92 155/70 01/22/20 08:15 100 01/22/20 08:00 99.3 92 20 160/85 (110) 94 01/22/20 08:00 Mechanical Ventilator Mechanical Ventilator 01/22/20 07:19 94 31 50 01/22/20 04:00 Mechanical Ventilator Mechanical Ventilator 01/22/20 04:00 98.0 83 22 152/76 (101) 99 01/22/20 04:00 40 01/22/20 03:32 80 01/22/20 03:20 79 23 50 01/22/20 00:00 Mechanical Ventilator Mechanical Ventilator 01/22/20 00:00 98.2 82 22 153/70 (97) 100 01/22/20 00:00 40 01/21/20 23:30 80 01/21/20 23:00 79 28 50 01/21/20 21:29 99.2 01/21/20 20:00 Mechanical Ventilator Mechanical Ventilator 01/21/20 20:00 100.4 85 18 148/69 (95) 97 01/21/20 20:00 40 01/21/20 19:56 80 01/21/20 19:00 84 32 50 01/21/20 17:22 155/71 01/21/20 17:20 76 155/71 01/21/20 16:00 Mechanical Ventilator Mechanical Ventilator 01/21/20 16:00 98.8 76 18 155/71 (99) 96 01/21/20 16:00 77 01/21/20 15:27 81 24 40 01/21/20 14:35 157/74 Intake and Output 01/21/20 01/22/20 18:59 06:59 Intake Total 995 ml 470 ml Output Total 151 ml 100 ml Balance 844 ml 370 ml Free Water 300 ml 50 ml Tube Feeding 455 ml 420 ml Other 240 ml Output Urine Total 150 ml 100 ml Stool Total 1 ml # Bowel Movements 1 Laboratory Tests 01/21/20 17:27: POC Whole Blood Glucose 92 01/21/20 23:29: POC Whole Blood Glucose 86 01/21/20 23:35: White Blood Count 20.7H, Red Blood Count 3.02L, Hemoglobin 8.8L, Hematocrit 24.7L, Mean Corpuscular Volume 82, Mean Corpuscular Hemoglobin 29.1, Mean Corpuscular Hemoglobin Concent 35.5, Red Cell Distribution Width 15.3H, Platelet Count 202, Mean Platelet Volume 5.6L, Neutrophils (%) (Auto) , Lymphocytes (%) (Auto) , Monocytes (%) (Auto) , Eosinophils (%) (Auto) , Basophils (%) (Auto) , Differential Total Cells Counted 100, Neutrophils % (Manual) 85H, Lymphocytes % (Manual) 10L, Monocytes % (Manual) 2, Eosinophils % (Manual) 0, Basophils % (Manual) 0, Band Neutrophils 3, Platelet Estimate Adequate, Platelet Morphology Normal 01/22/20 03:55: White Blood Count 19.8H, Red Blood Count 2.92L, Hemoglobin 8.4L, Hematocrit 23.5L, Mean Corpuscular Volume 81, Mean Corpuscular Hemoglobin 28.7, Mean Corpuscular Hemoglobin Concent 35.5, Red Cell Distribution Width 16.3H, Platelet Count 190, Mean Platelet Volume 6.0L, Neutrophils (%) (Auto) , Lymphocytes (%) (Auto) , Monocytes (%) (Auto) , Eosinophils (%) (Auto) , Basophils (%) (Auto) , Differential Total Cells Counted 100, Neutrophils % (Manual) 84H, Lymphocytes % (Manual) 14L, Monocytes % (Manual) 2, Eosinophils % (Manual) 0, Basophils % (Manual) 0, Band Neutrophils 0, Platelet Estimate Adequate, Platelet Morphology Normal, Hypochromasia 1+, Anisocytosis 1+, Sodium Level 140, Potassium Level 3.5, Chloride Level 100, Carbon Dioxide Level 24, Anion Gap 16H, Blood Urea Nitrogen 108H, Creatinine 3.7H, Estimat Glomerular Filtration Rate 13.1, Glucose Level 95, Calcium Level 8.1L, Total Bilirubin 0.5, Aspartate Amino Transf (AST/SGOT) 36, Alanine Aminotransferase (ALT/SGPT) 18, Alkaline Phosphatase 382H , Total Protein 6.9, Albumin 2.2L, Globulin 4.7, Albumin/Globulin Ratio 0.5L, Amylase Level 465H, Lipase > 2000H 01/22/20 05:11: POC Whole Blood Glucose [Pending] 01/22/20 12:28: POC Whole Blood Glucose 81 Height (Feet): 5 Height (Inches): 6.00 Weight (Pounds): 150 General Appearance: no apparent distress EENT: other - On mechanical ventilation Cardiovascular: normal rate Respiratory/Chest: decreased breath sounds Abdomen: distended Johnny Houston MD Jan 22, 2020 14:18
--- NOTE | 2020-01-22 14:50 | NUR ---
CASE MANAGEMENT:REVIEW 01/22/20 SI: SEPSIS. RENAL FAILURE TRACH/VENT 98.4 83 29 147/68 97% ON VENT SUPPORT W/50% FIO2 WBC+19.8 H/H-8.4/23.5 BUN+108 CR+3.7 IS: IV MEROPENEM Q24 TOBRAMYCIN INH Q12 NORVASC GT BID LOPRESSOR GT Q12 ISORDIL GT TID ASA GT QD PREVACID GT BID : STEP DOWN UNIT DCP: FROM [facility] PLAN: THORACENTESIS DIALYZE 02/02/20
--- NOTE | 2020-01-22 15:00 | NUR ---
NURSE NOTES: Thoracentesis done at bedside,removed 1.5 L of fluid,procedure tolerated well,no resp distress presented.
--- NOTE | 2020-01-22 15:09 | Diagnostic Imaging Report ---
Indication: Reason For Exam: PNEUMOTX Technique: Single AP view of the chest. Comparison: Chest radiograph dated 01/19/2020 Findings: The cardiomediastinal silhouette is unchanged in appearance. Interval increase in pulmonary vascular congestion. Redemonstration of bibasilar and retrocardiac airspace opacities. No pneumothorax. Interval decrease in large left pleural effusion, now small, with associated streaky airspace opacities. Unchanged cannulated tracheostomy. IMPRESSION: 1. Interval left thoracentesis with decrease in left pleural effusion, now small. 2. Slight interval increase in pulmonary vascular congestion..
--- NOTE | 2020-01-22 15:30 | NUR ---
NURSE NOTES: Called [facility] Nephrology for dialysis tomorrow (01/22). Talked to Vijay.
[2020-01-22 16:00] VITALS: BP 124/77
--- NOTE | 2020-01-22 17:26 | Surgery Progress Note ---
Surgery Progress Note Subjective Procedure Performed Left femoral temporary hemodialysis catheter insertion Additional Comments wbc improving no n/v comfortable Objective Last 24 Hour Vital Signs Date Time Temp Pulse Resp B/P (MAP) Pulse Ox O2 Delivery O2 Flow Rate FiO2 01/22/20 16:00 Mechanical Ventilator Mechanical Ventilator 01/22/20 15:12 83 33 50 01/22/20 13:30 140/78 01/22/20 12:00 Mechanical Ventilator Mechanical Ventilator 01/22/20 12:00 98.4 83 29 147/68 (94) 97 01/22/20 11:35 84 01/22/20 11:28 84 30 50 01/22/20 09:13 92 155/70 01/22/20 09:13 155/70 01/22/20 09:12 92 155/70 01/22/20 08:15 100 01/22/20 08:00 99.3 92 20 160/85 (110) 94 01/22/20 08:00 Mechanical Ventilator Mechanical Ventilator 01/22/20 07:19 94 31 50 01/22/20 04:00 Mechanical Ventilator Mechanical Ventilator 01/22/20 04:00 98.0 83 22 152/76 (101) 99 01/22/20 04:00 40 01/22/20 03:32 80 01/22/20 03:20 79 23 50 01/22/20 00:00 Mechanical Ventilator Mechanical Ventilator 01/22/20 00:00 98.2 82 22 153/70 (97) 100 01/22/20 00:00 40 01/21/20 23:30 80 01/21/20 23:00 79 28 50 01/21/20 21:29 99.2 01/21/20 20:00 Mechanical Ventilator Mechanical Ventilator 01/21/20 20:00 100.4 85 18 148/69 (95) 97 01/21/20 20:00 40 01/21/20 19:56 80 01/21/20 19:00 84 32 50 I&O Intake and Output 01/21/20 01/22/20 18:59 06:59 Intake Total 995 ml 470 ml Output Total 151 ml 100 ml Balance 844 ml 370 ml Free Water 300 ml 50 ml Tube Feeding 455 ml 420 ml Other 240 ml Output Urine Total 150 ml 100 ml Stool Total 1 ml # Bowel Movements 1 Dressing: saturated Cardiovascular: RSR Respiratory: decreased breath sounds Abdomen: non-tender, present bowel sounds Extremities: no tenderness, no cyanosis Laboratory Tests Test 01/21/20 17:27 01/21/20 23:29 01/21/20 23:35 01/22/20 03:55 POC Whole Blood Glucose 92 MG/DL (74-106) 86 MG/DL (74-106) White Blood Count 20.7 K/UL (4.8-10.8) H 19.8 K/UL (4.8-10.8) H Red Blood Count 3.02 M/UL (4.20-5.40) L 2.92 M/UL (4.20-5.40) L Hemoglobin 8.8 G/DL (12.0-16.0) L 8.4 G/DL (12.0-16.0) L Hematocrit 24.7 % (37.0-47.0) L 23.5 % (37.0-47.0) L Mean Corpuscular Volume 82 FL (80-99) 81 FL (80-99) Mean Corpuscular Hemoglobin 29.1 PG (27.0-31.0) 28.7 PG (27.0-31.0) Mean Corpuscular Hemoglobin Concent 35.5 G/DL (32.0-36.0) 35.5 G/DL (32.0-36.0) Red Cell Distribution Width 15.3 % (11.6-14.8) H 16.3 % (11.6-14.8) H Platelet Count 202 K/UL (150-450) 190 K/UL (150-450) Mean Platelet Volume 5.6 FL (6.5-10.1) L 6.0 FL (6.5-10.1) L Neutrophils (%) (Auto) % (45.0-75.0) % (45.0-75.0) Lymphocytes (%) (Auto) % (20.0-45.0) % (20.0-45.0) Monocytes (%) (Auto) % (1.0-10.0) % (1.0-10.0) Eosinophils (%) (Auto) % (0.0-3.0) % (0.0-3.0) Basophils (%) (Auto) % (0.0-2.0) % (0.0-2.0) Differential Total Cells Counted 100 100 Neutrophils % (Manual) 85 % (45-75) H 84 % (45-75) H Lymphocytes % (Manual) 10 % (20-45) L 14 % (20-45) L Monocytes % (Manual) 2 % (1-10) 2 % (1-10) Eosinophils % (Manual) 0 % (0-3) 0 % (0-3) Basophils % (Manual) 0 % (0-2) 0 % (0-2) Band Neutrophils 3 % (0-8) 0 % (0-8) Platelet Estimate Adequate Adequate Platelet Morphology Normal Normal Hypochromasia 1+ Anisocytosis 1+ Sodium Level 140 MMOL/L (136-145) Potassium Level 3.5 MMOL/L (3.5-5.1) Chloride Level 100 MMOL/L (98-107) Carbon Dioxide Level 24 MMOL/L (21-32) Anion Gap 16 mmol/L (5-15) H Blood Urea Nitrogen 108 mg/dL (7-18) H Creatinine 3.7 MG/DL (0.55-1.30) H Estimat Glomerular Filtration Rate 13.1 mL/min (>60) Glucose Level 95 MG/DL (74-106) Calcium Level 8.1 MG/DL (8.5-10.1) L Total Bilirubin 0.5 MG/DL (0.2-1.0) Aspartate Amino Transf (AST/SGOT) 36 U/L (15-37) Alanine Aminotransferase (ALT/SGPT) 18 U/L (12-78) Alkaline Phosphatase 382 U/L (46-116) H Total Protein 6.9 G/DL (6.4-8.2) Albumin 2.2 G/DL (3.4-5.0) L Globulin 4.7 g/dL Albumin/Globulin Ratio 0.5 (1.0-2.7) L Amylase Level 465 U/L (25-115) H Lipase > 2000 U/L (73-393) H Test 01/22/20 05:11 01/22/20 12:28 POC Whole Blood Glucose Pending 81 MG/DL (74-106) Plan Problems: (1) Dehydration (2) Acidosis (3) Depression (4) Pleural effusion (5) Respiratory failure (6) Schizophrenia (7) Hypoxia (8) UTI (urinary tract infection) (9) Pneumonia (10) NSTEMI (non-ST elevated myocardial infarction) (11) Tracheostomy in place (12) Feeding by G-tube (13) JAVIER (acute kidney injury) (14) Acute encephalopathy (15) Sacral decubitus ulcer, stage IV (16) Chronic respiratory failure (17) Ascites (18) Bacteremia (19) Hypernatremia (20) Proteinuria (21) Electrolyte imbalance (22) ACS (acute coronary syndrome) (23) Aortic dissection, thoracic (24) Respiratory failure, acute and chronic (25) JAVIER (acute kidney injury) (26) Abrasion of lip, initial encounter (27) COPD with exacerbation (28) Elevated alkaline phosphatase level (29) Renal failure (ARF), acute on chronic (30) HCAP (healthcare-associated pneumonia) (31) GT CLOGGED (32) Elevated lipase (33) Pancreatitis (34) Elevated troponin (35) Hypokalemia (36) Hyponatremia (37) Anemia (38) Renal failure (39) ARF (acute renal failure) (40) Pacemaker (41) Sepsis Assessment & Plan: leukocytosis anemia on HD renal insufficiency wounds addressed pt presented on admission with Tracheostomy ,GT and Multiple Pressure Injuries. Skin assessment of skin under tracheal collar without evidence of skin breakdown. Peristomal GT site excoriated.Moderate amt of dark red sanguineous exudate. Full Thickness Sacral Pressure Injury with undermined borders (L)9 cm x (W)12cm x (D)1.8cm,Undermining clockwise8-9 by 2.2cm @1o'clock,undermining clockwise 1-4 by 1.9 @ 9'oclock Scattered necrotic tissue within wound bed. Borders are loose and necrotic with marginal erythema to outer perimeter of wound. NO elevation in skin temp noted periwound. Wound is malodorous. Small amt Brown exudate noted. Resolving Pressure Injury L Ischium(L)1.5cm x (W)1.5cm. Base of wound is 80% pink epithelial with an area that is moist and pink. NO odor or exudate noted. Bilat foot-drop noted. L Heel is boggy with non-blanchable erythema(L)4cm x (W)4cm. R heel is boggy with non-Blanchable erythema(L)5cm x (W)6cm. Tx.Plan: Cleanse sacral wound with Dakin's 0.125% annie. Loosely pack with Dakin's moistened Kerlix(Attention to undermined borders). Apply Moisture Barrier Paste periwound. Cover with Optifoam drsg. Change Daily and PRN. Apply Cavilon Skin Barrier to R and L Hels. Cover each heel with Optifoam drsg. Change every 7 days and prn. Reposition at least every 2hours or as tolerated. Off-load heels with Pillow. APM/JENNIFER MAttress overlay DAILY ESTIMATED NEEDS: Needs based on Critical care, wound, renal dysfunction 56 kg abw 28-33 kcals/kg 3256-1072 total kcals W/ HD (1.5-2.0) g protein/kg 84-112 g total protein Fluid per MD mL/kg . total fluid mLs NUTRITION DIAGNOSIS: * Swallowing difficulty R/T dysphagia, respiratory status as evidenced by vent dep via trach, GT Dep. * Increase kcal and pro needs r/t wound healing, renal dysfunction as evidenced by admitted w/ large, advanced sacral wound, previously stage 4, pending eval, admitted w/ JAVIER, pending HD. CURRENT TF:NPO ENTERAL NUTRITION RECOMMENDATIONS: Nepro @ 40ml/hr x 24 hrs + Prosource 1pkt QD to provide 960ml, 1728kcal, 78g+11g prot, 698ml free water * As medically appropriate, initiate TF on Nepro, rec goal rate fo 40ml/hr x 24 hrs * Add Prosource 1pkt QD to better meet increased protein needs (additional 11g prot) * Water flush per MD/ HOB over 30 degrees ADDITIONAL RECOMMENDATIONS: * Per SNF in NOV 2019: HT=63"/ Rec daily calibrated bedscale wt * Monitor for continuity of HD: non-tunneled cath placement ordered * Monitor lytes and renal fxn for improvement (Na low, K and phos elevated) * Wound care: add Nephrovite x 1, ZnSO4 220mg QD x 10 days Reynaldo BID via PEG (mix w/ 2-4 oz water) * Monitor BG closely for hypoglycemia while NPO (h/o DM, on Nacl 3% to correct hyponatremia, consider accuchecks) (42) Hyponatremia Lane Saavedra Jan 22, 2020 17:26
--- NOTE | 2020-01-22 17:37 | Diagnostic Imaging Report ---
Indications: Pleural effusion Technique: Ultrasound used to localize optimal puncture site. Initial ultrasound demonstrates complex pleural fluid with septations and low-level internal echoes. Sterile prepping and draping left lateral chest. Local anesthesia with 1% lidocaine. Under real-time ultrasound guidance, the pleural space was accessed with a 5 Japanese Yueh. Stylet removed. Catheter placed to vacuum bottle suction. Total 1050 milliliters of bloody pleural fluid aspirated. Patient tolerated procedure well, without immediate complication. Findings: Followup sonography demonstrates marked decrease of pleural fluid, with small residual pleural effusion. Impression: Successful ultrasound-guided thoracentesis, yielding 1050 milliliters of bloody fluid
--- NOTE | 2020-01-22 17:40 | NUR ---
NURSE HAND-OFF REPORT: Important Events on Shift: stable Patient Status: Diet: Pending Orders: Pending Results/Labs: Pending MD notification: Latest Vital Signs: Temperature 96.3 , Pulse 100 , B/P 178 /85 , Respiratory Rate 33 , O2 SAT 100 , Mechanical Ventilator, O2 Flow Rate . Vital Sign Comment: EKG Rhythm: Sinus Rhythm Rhythm change?: N MD Notified?: Gabriel Willams MD Response: Order Received& Read Back Latest Chavarria Fall Score: 70 Fall Risk: High Risk Safety Measures: Call light Within Reach, Bed Alarm Zone 2, Side Rails Side Rails x2, Bed position Low and Locked. Fall Precautions: Yellow Socks Report given to Cody RN.
--- NOTE | 2020-01-22 18:00 | NUR ---
NURSE NOTES: Pt stable no resp distress presented during the shift .
--- NOTE | 2020-01-22 19:13 | NUR ---
NURSE NOTES: Received report from ERASMO Kaba. Patient asleep in bed, afebrile and in no apparent acute respiratory and cardiac distress noted. SR on infectious disease physician @91 bpm. Pt is arousable, opens eyes , noted of edema around both eyes. Trach to vent S6, AC 14, TV 500, FiO2 40% and PEEP 5 tolerating well with vent setting, saturating at 99%. On nephro at 35ml/hr via GT. Intact, patent and infusing well, no residual. With Right AC 20g and left Wrist 22 G IV lines intact, patent and asymptomatic. With left femoral arden catheter intact and asymptomatic. Norman cath to urine bag draining hematuria. MD is aware per am shift. Needs were attended. Bed rails are up and wheels are locked. Will continue plan of care and monitor pt .
[2020-01-22 20:00] VITALS: BP 158/84
[2020-01-22] MEDS: Dyna-Hex 2% Top Sol 2oz TOPIC SCH (20:40)
--- NOTE | 2020-01-22 23:58 | NUR ---
NURSE NOTES: Dr lewis at bedside, updated the patient and ordered ativan 0.5mg iv x1.
[2020-01-23] VITALS: BP 154/92
[2020-01-23] MEDS ORDERED: LORazepam Inj 2mg/ml 1ml IV SCH
--- NOTE | 2020-01-23 00:35 | Cardiology Progress Note ---
Subjective DATE OF SERVICE: Jan 22, 2020 Remains in atrial fibrillation; rates now better controlled. Occasional PVC's - non-sustained BP parameters in high normal range. Off amiodarone Full vent support via trach s/p left thorocentesis today Objective Last 24 Hour Vital Signs Date Time Temp Pulse Resp B/P (MAP) Pulse Ox O2 Delivery O2 Flow Rate FiO2 01/23/20 00:00 98.2 91 24 154/92 (112) 100 01/22/20 22:42 87 26 100 01/22/20 20:40 91 158/84 01/22/20 20:00 Mechanical Ventilator Mechanical Ventilator 01/22/20 20:00 40 01/22/20 20:00 99.1 91 26 158/84 (108) 100 01/22/20 19:10 100 33 100 01/22/20 19:02 96 01/22/20 18:53 178/85 01/22/20 18:52 81 178/85 01/22/20 16:00 40 01/22/20 16:00 91 01/22/20 16:00 Mechanical Ventilator Mechanical Ventilator 01/22/20 16:00 96.3 70 23 124/77 (93) 100 01/22/20 15:12 83 33 50 01/22/20 13:30 140/78 01/22/20 12:00 Mechanical Ventilator Mechanical Ventilator 01/22/20 12:00 40 01/22/20 12:00 98.4 83 29 147/68 (94) 97 01/22/20 11:35 84 01/22/20 11:28 84 30 50 01/22/20 09:13 92 155/70 01/22/20 09:13 155/70 01/22/20 09:12 92 155/70 01/22/20 08:15 100 01/22/20 08:00 40 01/22/20 08:00 99.3 92 20 160/85 (110) 94 01/22/20 08:00 Mechanical Ventilator Mechanical Ventilator 01/22/20 07:19 94 31 50 01/22/20 04:00 Mechanical Ventilator Mechanical Ventilator 01/22/20 04:00 98.0 83 22 152/76 (101) 99 01/22/20 04:00 40 01/22/20 03:32 80 01/22/20 03:20 79 23 50 ROS: unchanged for 01/17/20 HEENT: Mechanically Ventilated, Thick Trach secretions RHYTHM: Afib LUNGS: diminished breath sounds - left, bilateral rhonchi CARDIAC: normal S1 and S2, irregularly irregular ABDOMEN: normal bowel sounds, non tender, soft, G-Tube intact EXTREMITIES: normal inspection, trace edema Laboratory Tests Test 01/22/20 03:55 01/22/20 05:11 01/22/20 12:28 01/22/20 14:43 White Blood Count 19.8 K/UL (4.8-10.8) H Red Blood Count 2.92 M/UL (4.20-5.40) L Hemoglobin 8.4 G/DL (12.0-16.0) L Hematocrit 23.5 % (37.0-47.0) L Mean Corpuscular Volume 81 FL (80-99) Mean Corpuscular Hemoglobin 28.7 PG (27.0-31.0) Mean Corpuscular Hemoglobin Concent 35.5 G/DL (32.0-36.0) Red Cell Distribution Width 16.3 % (11.6-14.8) H Platelet Count 190 K/UL (150-450) Mean Platelet Volume 6.0 FL (6.5-10.1) L Neutrophils (%) (Auto) % (45.0-75.0) Lymphocytes (%) (Auto) % (20.0-45.0) Monocytes (%) (Auto) % (1.0-10.0) Eosinophils (%) (Auto) % (0.0-3.0) Basophils (%) (Auto) % (0.0-2.0) Differential Total Cells Counted 100 Neutrophils % (Manual) 84 % (45-75) H Lymphocytes % (Manual) 14 % (20-45) L Monocytes % (Manual) 2 % (1-10) Eosinophils % (Manual) 0 % (0-3) Basophils % (Manual) 0 % (0-2) Band Neutrophils 0 % (0-8) Platelet Estimate Adequate Platelet Morphology Normal Hypochromasia 1+ Anisocytosis 1+ Sodium Level 140 MMOL/L (136-145) Potassium Level 3.5 MMOL/L (3.5-5.1) Chloride Level 100 MMOL/L (98-107) Carbon Dioxide Level 24 MMOL/L (21-32) Anion Gap 16 mmol/L (5-15) H Blood Urea Nitrogen 108 mg/dL (7-18) H Creatinine 3.7 MG/DL (0.55-1.30) H Estimat Glomerular Filtration Rate 13.1 mL/min (>60) Glucose Level 95 MG/DL (74-106) Calcium Level 8.1 MG/DL (8.5-10.1) L Total Bilirubin 0.5 MG/DL (0.2-1.0) Aspartate Amino Transf (AST/SGOT) 36 U/L (15-37) Alanine Aminotransferase (ALT/SGPT) 18 U/L (12-78) Alkaline Phosphatase 382 U/L (46-116) H Total Protein 6.9 G/DL (6.4-8.2) Albumin 2.2 G/DL (3.4-5.0) L Globulin 4.7 g/dL Albumin/Globulin Ratio 0.5 (1.0-2.7) L Amylase Level 465 U/L (25-115) H Lipase > 2000 U/L (73-393) H POC Whole Blood Glucose Pending 81 MG/DL (74-106) Body Fluid Glucose Pending Body Fluid Total Protein Pending Body Fluid Lactate Dehydrogenase Pending Test 01/22/20 17:45 01/22/20 18:59 POC Whole Blood Glucose Pending 115 MG/DL (74-106) H Microbiology Date/Time Source Procedure Growth Status 01/21/20 05:20 Blood Blood Culture - Preliminary NO GROWTH AFTER 24 HOURS Resulted Assessment/Plan Assessment/Plan Chronic respiratory failure with trach Severe sepsis PAFib with rapid ventric response - now slowing on amiodarone. Ischemic cardiomyopathy - hx CABG and s/p NSTEMI in Dec 2019. Conduction system disease of the heart Hx of permanent pacemaker explant Acute on chronic systolic and diastolic CHF Pleural effusion - s/p left thorocentesis Will advance beta flori Anti-failure and anti-anginal regimen with titration Vent support Abx per ID Continuous cardiac monitoring Deni Willams MD Jan 23, 2020 00:35
--- NOTE | 2020-01-23 00:45 | General Progress Note ---
Subjective Constitutional: Reports: no symptoms, weakness HEENT: Reports: no symptoms Cardiovascular: Reports: no symptoms, palpitations Respiratory: Reports: SOB at rest Gastrointestinal/Abdominal: Reports: no symptoms Genitourinary: Reports: no symptoms Neurologic/Psychiatric: Reports: no symptoms Hematologic/Lymphatic: Reports: no symptoms Allergies: Coded Allergies: No Known Allergies (Unverified , 10/10/17) Objective Last 24 Hour Vital Signs Date Time Temp Pulse Resp B/P (MAP) Pulse Ox O2 Delivery O2 Flow Rate FiO2 01/23/20 00:00 98.2 91 24 154/92 (112) 100 01/22/20 22:42 87 26 100 01/22/20 20:40 91 158/84 01/22/20 20:00 Mechanical Ventilator Mechanical Ventilator 01/22/20 20:00 40 01/22/20 20:00 99.1 91 26 158/84 (108) 100 01/22/20 19:10 100 33 100 01/22/20 19:02 96 01/22/20 18:53 178/85 01/22/20 18:52 81 178/85 01/22/20 16:00 40 01/22/20 16:00 91 01/22/20 16:00 Mechanical Ventilator Mechanical Ventilator 01/22/20 16:00 96.3 70 23 124/77 (93) 100 01/22/20 15:12 83 33 50 01/22/20 13:30 140/78 01/22/20 12:00 Mechanical Ventilator Mechanical Ventilator 01/22/20 12:00 40 01/22/20 12:00 98.4 83 29 147/68 (94) 97 01/22/20 11:35 84 01/22/20 11:28 84 30 50 01/22/20 09:13 92 155/70 01/22/20 09:13 155/70 01/22/20 09:12 92 155/70 01/22/20 08:15 100 01/22/20 08:00 40 01/22/20 08:00 99.3 92 20 160/85 (110) 94 01/22/20 08:00 Mechanical Ventilator Mechanical Ventilator 01/22/20 07:19 94 31 50 01/22/20 04:00 Mechanical Ventilator Mechanical Ventilator 01/22/20 04:00 98.0 83 22 152/76 (101) 99 01/22/20 04:00 40 01/22/20 03:32 80 01/22/20 03:20 79 23 50 Intake and Output 01/22/20 01/23/20 19:00 07:00 Intake Total 915 ml 240 ml Output Total 300 ml Balance 615 ml 240 ml Free Water 200 ml IV Total 55 ml Tube Feeding 420 ml 140 ml Other 240 ml 100 ml Output Urine Total 300 ml Laboratory Tests 01/22/20 03:55: White Blood Count 19.8H, Red Blood Count 2.92L, Hemoglobin 8.4L, Hematocrit 23.5L, Mean Corpuscular Volume 81, Mean Corpuscular Hemoglobin 28.7, Mean Corpuscular Hemoglobin Concent 35.5, Red Cell Distribution Width 16.3H, Platelet Count 190, Mean Platelet Volume 6.0L, Neutrophils (%) (Auto) , Lymphocytes (%) (Auto) , Monocytes (%) (Auto) , Eosinophils (%) (Auto) , Basophils (%) (Auto) , Differential Total Cells Counted 100, Neutrophils % (Manual) 84H, Lymphocytes % (Manual) 14L, Monocytes % (Manual) 2, Eosinophils % (Manual) 0, Basophils % (Manual) 0, Band Neutrophils 0, Platelet Estimate Adequate, Platelet Morphology Normal, Hypochromasia 1+, Anisocytosis 1+, Sodium Level 140, Potassium Level 3.5, Chloride Level 100, Carbon Dioxide Level 24, Anion Gap 16H, Blood Urea N itrogen 108H, Creatinine 3.7H, Estimat Glomerular Filtration Rate 13.1, Glucose Level 95, Calcium Level 8.1L, Total Bilirubin 0.5, Aspartate Amino Transf (AST/SGOT) 36, Alanine Aminotransferase (ALT/SGPT) 18, Alkaline Phosphatase 382H , Total Protein 6.9, Albumin 2.2L, Globulin 4.7, Albumin/Globulin Ratio 0.5L, Amylase Level 465H, Lipase > 2000H 01/22/20 05:11: POC Whole Blood Glucose [Pending] 01/22/20 12:28: POC Whole Blood Glucose 81 01/22/20 14:43: Body Fluid Glucose [Pending], Body Fluid Total Protein [Pending], Body Fluid Lactate Dehydrogenase [Pending] 01/22/20 17:45: POC Whole Blood Glucose [Pending] 01/22/20 18:59: POC Whole Blood Glucose 115H Height (Feet): 5 Height (Inches): 6.00 Weight (Pounds): 150 General Appearance: alert, lethargic, mild distress EENT: normal ENT inspection Neck: non-tender, normal alignment, supple Cardiovascular: regular rhythm, no gallop/murmur, no JVD, bradycardia Respiratory/Chest: rhonchi - bilaterally Abdomen: normal bowel sounds, non tender, soft, no organomegaly, no mass Extremities: non-tender Edema: non-pitting, other Neurologic: alert, responsive Skin: warm/dry Assessment/Plan Status Narrative Patient is awake alert afebrile with moderate tachycardia no acute distress behavior in bed is markedly improved scheduled to undergo hemodialysis tomorrow. Blood gases relatively acceptable chest x-ray will be repeated in a.m. laboratory tests will be repeated in a.m. as well Lucas Paul MD, MD Jan 23, 2020 00:45
--- NOTE | 2020-01-23 02:00 | NUR ---
NURSE NOTES: Pt appears to be calm and comfortable in bed. In no apparent distress noted. Turned and repositioned.
[2020-01-23 04:00] VITALS: BP 155/79
[2020-01-23 05:53] LABS: INR 1.4 (0.9-1.1)
[2020-01-23 05:55] LABS: HEMATOCRIT 21.3 % (37.0-47.0); HEMOGLOBIN 7.2 G/DL (12.0-16.0); MEAN CORPUSCULAR VOLUME 84 FL (80-99); PLATELET COUNT 167 K/UL (150-450); RED BLOOD COUNT 2.53 M/UL (4.20-5.40); RED CELL DISTRIBUTION WIDTH 15.1 % (11.6-14.8); WHITE BLOOD COUNT 17.9 K/UL (4.8-10.8)
--- NOTE | 2020-01-23 06:39 | NUR ---
NURSE NOTES: Notified Dr Dong regarding the latest coagulation of the pt. Pt 14.8, INR 1.4 and aptt of 35. Awaiting response. Still noted of hematuria .
[2020-01-23 06:50] LABS: PHOSPHORUS 6.1 MG/DL (2.5-4.9)
--- NOTE | 2020-01-23 07:03 | NUR ---
NURSE HAND-OFF REPORT: Important Events on Shift: Still noted hematuria. Patient Status: Stable Diet: Nepro @35 Pending Orders: Pending Results/Labs: Pending MD notification: Latest Vital Signs: Temperature 98.2 , Pulse 83 , B/P 155 /79 , Respiratory Rate 20 , O2 SAT 100 , Mechanical Ventilator, O2 Flow Rate . Vital Sign Comment: EKG Rhythm: Sinus Rhythm Rhythm change?: N MD Notified?: MD Response: Latest Chavarria Fall Score: 70 Fall Risk: High Risk Safety Measures: Call light Within Reach, Bed Alarm Zone 2, Side Rails Side Rails x2, Bed position Low and Locked. Fall Precautions: Yellow Socks Report given to ERASMO Sen .
[2020-01-23 07:04] LABS: ALBUMIN 2.2 G/DL (3.4-5.0); ALBUMIN/GLOBULIN RATIO 0.5 (1.0-2.7); BILIRUBIN,TOTAL 0.6 MG/DL (0.2-1.0); CALCIUM 7.9 MG/DL (8.5-10.1); CREATININE 4.2 MG/DL (0.55-1.30); POTASSIUM 3.9 MMOL/L (3.5-5.1)
--- NOTE | 2020-01-23 07:19 | NUR ---
NURSE NOTES: Received report from ERASMO Hirsch. Patient resting in bed, in stable condition. No s/sx of SOB, breathing is even and unlabored, vent settings as ordered. Patient is nonverbal, observed no presence of pain or discomfort. Patient has G-tube, patent and flushing. Patient has urinary raymond catheter, noted with red tinged urine, per night nurse, is aware, will monitor. Bed is in lowest position, brakes engaged. Call light is kept within easy reach. Will continue to monitor patient.
[2020-01-23 08:00] VITALS: BP 167/80
--- NOTE | 2020-01-23 08:01 | NUR ---
NURSE NOTES: Patient noted with hemoglobin level of 7.2, Hct 21.3, plt 167, read Dr. Muhammad notes hemoglobin goal above 7.0. Contacted and informed Dr. Muhammad of assessments. Dr. Muhammad acknowledged and ordered other nursing orders to maintain hemoglobin goal above 7.0. Order entered. Also informed Dr. Muhammad of PT 14.8, INR 1.4, PTT 35 and noted red tinged urine per raymond. Dr. Muhammad acknowledged and ordered Vitamin K 10 mg SQ x 1. Noted. Will continue to monitor patient.
--- NOTE | 2020-01-23 08:36 | General Progress Note ---
Subjective ROS Limited/Unobtainable: No Allergies: Coded Allergies: No Known Allergies (Unverified , 10/10/17) Objective Last 24 Hour Vital Signs Date Time Temp Pulse Resp B/P (MAP) Pulse Ox O2 Delivery O2 Flow Rate FiO2 01/23/20 07:20 86 23 85 01/23/20 04:00 Mechanical Ventilator Mechanical Ventilator 01/23/20 04:00 98.2 83 20 155/79 (104) 100 01/23/20 04:00 40 01/23/20 03:36 81 01/23/20 02:30 85 27 85 01/23/20 01:08 86 22 144/68 100 01/23/20 00:38 97 24 154/92 100 01/23/20 00:00 98.2 91 24 154/92 (112) 100 01/23/20 00:00 Mechanical Ventilator Mechanical Ventilator 01/22/20 23:30 98 01/22/20 22:42 87 26 100 01/22/20 20:40 91 158/84 01/22/20 20:00 Mechanical Ventilator Mechanical Ventilator 01/22/20 20:00 40 01/22/20 20:00 99.1 91 26 158/84 (108) 100 01/22/20 19:10 100 33 100 01/22/20 19:02 96 01/22/20 18:53 178/85 01/22/20 18:52 81 178/85 01/22/20 16:00 40 01/22/20 16:00 91 01/22/20 16:00 Mechanical Ventilator Mechanical Ventilator 01/22/20 16:00 96.3 70 23 124/77 (93) 100 01/22/20 15:12 83 33 50 01/22/20 13:30 140/78 01/22/20 12:00 Mechanical Ventilator Mechanical Ventilator 01/22/20 12:00 40 01/22/20 12:00 98.4 83 29 147/68 (94) 97 01/22/20 11:35 84 01/22/20 11:28 84 30 50 01/22/20 09:13 92 155/70 01/22/20 09:13 155/70 01/22/20 09:12 92 155/70 Intake and Output 01/22/20 01/23/20 19:00 07:00 Intake Total 915 ml 735 ml Output Total 300 ml 300 ml Balance 615 ml 435 ml Free Water 200 ml 250 ml IV Total 55 ml Tube Feeding 420 ml 385 ml Other 240 ml 100 ml Output Urine Total 300 ml 300 ml Laboratory Tests 01/22/20 12:28: POC Whole Blood Glucose 81 01/22/20 14:43: Body Fluid Glucose [Pending], Body Fluid Total Protein [Pending], Body Fluid Lactate Dehydrogenase [Pending] 01/22/20 17:45: POC Whole Blood Glucose [Pending] 01/22/20 18:59: POC Whole Blood Glucose 115H 01/23/20 01:06: POC Whole Blood Glucose 83 01/23/20 03:00: White Blood Count 17.9H, Red Blood Count 2.53L, Hemoglobin 7.2L, Hematocrit 21.3L, Mean Corpuscular Volume 84, Mean Corpuscular Hemoglobin 28.6, Mean Corpuscular Hemoglobin Concent 34.1, Red Cell Distribution Width 15.1H, Platelet Count 167, Mean Platelet Volume 5.7L, Neutrophils (%) (Auto) , Lymphocytes (%) (Auto) , Monocytes (%) (Auto) , Eosinophils (%) (Auto) , Basophils (%) (Auto) , Neutrophils % (Manual) [Pending], Lymphocytes % (Manual) [Pending], Platelet Estimate [Pending], Platelet Morphology [Pending], Prothrombin Time 14.8H, Prothromb Time International Ratio 1.4H, Activated Partial Thromboplast Time 35H , Sodium Level 141, Potassium Level 3.9, Chloride Level 100, Carbon Dioxide Level 24, Anion Gap 17H, Blood Urea Nitrogen 122H, Creatinine 4.2H, Estimat Glomerular Filtration Rate 11.4, Glucose Level 80, Calcium Level 7.9L, Phosphorus Level 6.1H, Magnesium Level 2.7H, Total Bilirubin 0.6, Aspartate Amino Transf (AST/SGOT) 38H, Alanine Aminotransferase (ALT/SGPT) 19, Alkaline Phosphatase 345H, C-Reactive Protein, Quantitative 26.7H, Pro-B-Type Natriuretic Peptide > 91845G, Total Protein 6.8, Albumin 2.2L, Globulin 4.6, Albumin/Globulin Ratio 0.5L 01/23/20 06:12: POC Whole Blood Glucose 84 Height (Feet): 5 Height (Inches): 6.00 Weight (Pounds): 150 General Appearance: lethargic EENT: normal ENT inspection Neck: supple Cardiovascular: tachycardia Respiratory/Chest: decreased breath sounds Abdomen: hypoactive bowel sounds Extremities: non-tender Assessment/Plan Problem List: (1) Hx of CABG ICD Codes: Z95.1 - Presence of aortocoronary bypass graft SNOMED: 832226958, 654484319 (2) History of tracheostomy ICD Codes: Z98.890 - Other specified postprocedural states SNOMED: 146383086, 945059190 (3) PEG (percutaneous endoscopic gastrostomy) status ICD Codes: Z93.1 - Gastrostomy status SNOMED: 426032524, 987097910 (4) S/P aortic dissection repair ICD Codes: Z98.890 - Other specified postprocedural states SNOMED: 832670254, 853531405 (5) Renal failure ICD Codes: N19 - Unspecified kidney failure SNOMED: 11575063, 892561762 (6) Anemia ICD Codes: D64.9 - Anemia, unspecified SNOMED: 631404594 Assessment/Plan: not stable for GI procedures ppi blood transfusion fu labs EGD when more stable GT topical care low dose GTF tolerated fu nephrology HD per nephrology repeat amylase and lipase recommend hospice Inder Arteaga MD Jan 23, 2020 08:36
[2020-01-23] MEDS: Aspirin Baby 81mg GT SCH (08:40)
--- NOTE | 2020-01-23 08:40 | Infectious Diseases Prog Note ---
Assessment/Plan 49yo F with: AF Sepsis Leukocytosis Hypoxia on vent Pneumonia c/b L pleural effusion (recurrent, prior determined to be transudative) - s/p thora 01/21, 1050cc removed Volume overload, BNP >35,0000, likely 2/2 progressive CKD --> ESRD ?Pancreatitis, Lipase >2000 Acute anemia to 5s CONS bacteremia, ?contaminant Aflutter w/ RVR 01/13 BCx 2/2 +S. epi COVID PCR neg Flu neg CXR: Large left pleural effusion. Bilateral interstitial and airspace infiltrates versus edema MRSA nares neg 01/16 BCx NTD 01/17 BCx 02/14 +Staph auricularis (skin colonizer) 01/18 Resp cx +MDR CRE PsA (S-gent) 01/18 C.dif neg 01/18 CXR: Similar opacification of the left hemithorax likely representing combination of pleural effusion with atelectasis versus pneumonia/edema. Decreased but persistent hazy opacity throughout the right lung may represent edema versus infectious/inflammatory process. 01/20 BCx NTD 01/21 L thora 1050 cc removed, cx p, cell count p JAVIER on CKD On previous admission Sep-Oct 2019 required HD for short period Going to start HD this admission again R/o COVID 01/14 COVID PCR neg 12/29 neg at SNF per report H/o UTI 11/27 u/a wbc 30-40, nit neg, leuk +3; ucx ESBL P. mirablis, ESBL M. morganii 09/15/19 u/a wbc tnct, nit neg, leuk +3; ucx >100k MDR P. stuarti (S Ceftriaxone, Meropenem) 10/07 u/a wbc tnct, nit neg, leuk ; ucx >100k VRE 10/15/19 u/a wbc tnct; ucx >100k ESBL P. stuarti (S ertapenem, aztreonam) H/o transudative pleural effusion 11/28 Sp Thora (w: 169, PMN: 2%, L: 49% , LDH: 57, prot 2.5); cx Neg H/o PNA 10/15/19 Resp cx ESBL P. mirabilis, MDR P.a. (S only to Gent) 09/22 Resp cx + MDR PsA (S-gent; I-colistin; R-levofloxacin, Zosyn, angelo) 09/16/19 Sp cx ESBL P. mirablis H/o PPM site (pocket) infection and pocket abscess 2ry to S. epi-11/2018, sp >6weeks IV vancomycin 11/27 SP ABBIE: no evidence for vegetation on any of the valves 11/26/18 SP PPM removal: OR findings:The fibrous capsule enclosing the generator was then opened and there was a [id number] amount of yellowish fluid drainage. The generator was then removed.Atrial and ventricular leads were detached. The necrotic tissue of the pocket was then removed and the pocket was flushed with an antibiotic solution. Capsule, wound tissue and lead tip cx: Neg 2d echo: no vegetation seen US chest: 4.6 x 3.4 x 0.9 cm hypoechoic/anechoic area overlying left chest pacemaker power pack. This could represent either a discrete fluid collection or a focal area of very edematous tissue. Infected fluid pocket also possible. 11/18 Bcx / S. epi; 11/20 Bcx neg; 11/24 Bcx Neg; 11/27 Bcx Neg CAD s/p CABG GERD/gastritis Afib HTN Dysphagia sp GT Aortic dissection s/p repair 2017 S/p PPM Parkinson's Disease Schizophrenia Anxiety COPD Chronic resp failure s/p trach Hx of tracheal bleeding ID resident ([facility]) VRE and MRSA colonized Plan: Cont inhaled tobramycin #2 given MDR PsA in resp cx Cont meropenem #7 Cont vanco #9 given CONS/GPC bacteremia Micro lab to perform sensi on MDR PsA from resp cx on Avycaz and Zerbaxa F/u L thora cx 01/21 F/u repeat BCx 01/19 given BCx from 01/17 02/14 +CONS Trend WBC Trend resp status, secretions 01/16 SP Zosyn #2 01/14 SP dex 10mg in ED 12/10 SP IV Gentamycin #10 12/07 SP Meropenem #10 12/01 SP IV Vancomycin #5 11/28 Sp Cefepime #2 and IV Gentamycin x1 Monitor CBC/CMP Monitor temp curve, hemodynamics Monitor resp status D/w RN Thank you for this consult. [facility] will continue to follow. Subjective Allergies: Coded Allergies: No Known Allergies (Unverified , 10/10/17) AF WBC 17, improving S/p L thora, 1050cc removed, sent for cx, NTD NAD on vent 85% PEEP 5 Getting HD Objective Last 24 Hour Vital Signs Date Time Temp Pulse Resp B/P (MAP) Pulse Ox O2 Delivery O2 Flow Rate FiO2 01/23/20 07:20 86 23 85 01/23/20 04:00 Mechanical Ventilator Mechanical Ventilator 01/23/20 04:00 98.2 83 20 155/79 (104) 100 01/23/20 04:00 40 01/23/20 03:36 81 01/23/20 02:30 85 27 85 01/23/20 01:08 86 22 144/68 100 01/23/20 00:38 97 24 154/92 100 01/23/20 00:00 98.2 91 24 154/92 (112) 100 01/23/20 00:00 Mechanical Ventilator Mechanical Ventilator 01/22/20 23:30 98 01/22/20 22:42 87 26 100 01/22/20 20:40 91 158/84 01/22/20 20:00 Mechanical Ventilator Mechanical Ventilator 01/22/20 20:00 40 01/22/20 20:00 99.1 91 26 158/84 (108) 100 01/22/20 19:10 100 33 100 01/22/20 19:02 96 01/22/20 18:53 178/85 01/22/20 18:52 81 178/85 01/22/20 16:00 40 01/22/20 16:00 91 01/22/20 16:00 Mechanical Ventilator Mechanical Ventilator 01/22/20 16:00 96.3 70 23 124/77 (93) 100 01/22/20 15:12 83 33 50 01/22/20 13:30 140/78 01/22/20 12:00 Mechanical Ventilator Mechanical Ventilator 01/22/20 12:00 40 01/22/20 12:00 98.4 83 29 147/68 (94) 97 01/22/20 11:35 84 01/22/20 11:28 84 30 50 01/22/20 09:13 92 155/70 01/22/20 09:13 155/70 01/22/20 09:12 92 155/70 Height (Feet): 5 Height (Inches): 6.00 Weight (Pounds): 150 Gen: NAD HEENT: NCAT, +trach CV: RRR Pulm: CTAB on vent Abd: Non-distended, +PEG Ext: No c/c/e Skin: No visible rashes Neuro: Awake, minimally interactive Lines: L fem HD cath Microbiology Date/Time Source Procedure Growth Status 01/21/20 05:20 Blood Blood Culture - Preliminary NO GROWTH AFTER 24 HOURS Resulted Laboratory Tests Test 01/22/20 12:28 01/22/20 14:43 01/22/20 17:45 01/22/20 18:59 POC Whole Blood Glucose 81 MG/DL (74-106) Pending 115 MG/DL (74-106) H Body Fluid Glucose Pending Body Fluid Total Protein Pending Body Fluid Lactate Dehydrogenase Pending Test 01/23/20 01:06 01/23/20 03:00 01/23/20 06:12 POC Whole Blood Glucose 83 MG/DL (74-106) 84 MG/DL (74-106) White Blood Count 17.9 K/UL (4.8-10.8) H Red Blood Count 2.53 M/UL (4.20-5.40) L Hemoglobin 7.2 G/DL (12.0-16.0) L Hematocrit 21.3 % (37.0-47.0) L Mean Corpuscular Volume 84 FL (80-99) Mean Corpuscular Hemoglobin 28.6 PG (27.0-31.0) Mean Corpuscular Hemoglobin Concent 34.1 G/DL (32.0-36.0) Red Cell Distribution Width 15.1 % (11.6-14.8) H Platelet Count 167 K/UL (150-450) Mean Platelet Volume 5.7 FL (6.5-10.1) L Neutrophils (%) (Auto) % (45.0-75.0) Lymphocytes (%) (Auto) % (20.0-45.0) Monocytes (%) (Auto) % (1.0-10.0) Eosinophils (%) (Auto) % (0.0-3.0) Basophils (%) (Auto) % (0.0-2.0) Neutrophils % (Manual) Pending Lymphocytes % (Manual) Pending Platelet Estimate Pending Platelet Morphology Pending Prothrombin Time 14.8 SEC (9.30-11.50) H Prothromb Time International Ratio 1.4 (0.9-1.1) H Activated Partial Thromboplast Time 35 SEC (23-33) H Sodium Level 141 MMOL/L (136-145) Potassium Level 3.9 MMOL/L (3.5-5.1) Chloride Level 100 MMOL/L (98-107) Carbon Dioxide Level 24 MMOL/L (21-32) Anion Gap 17 mmol/L (5-15) H Blood Urea Nitrogen 122 mg/dL (7-18) H Creatinine 4.2 MG/DL (0.55-1.30) H Estimat Glomerular Filtration Rate 11.4 mL/min (>60) Glucose Level 80 MG/DL (74-106) Calcium Level 7.9 MG/DL (8.5-10.1) L Phosphorus Level 6.1 MG/DL (2.5-4.9) H Magnesium Level 2.7 MG/DL (1.8-2.4) H Total Bilirubin 0.6 MG/DL (0.2-1.0) Aspartate Amino Transf (AST/SGOT) 38 U/L (15-37) H Alanine Aminotransferase (ALT/SGPT) 19 U/L (12-78) Alkaline Phosphatase 345 U/L (46-116) H C-Reactive Protein, Quantitative 26.7 mg/dL (0.00-0.90) H Pro-B-Type Natriuretic Peptide > 08459 pg/mL (0-125) H Total Protein 6.8 G/DL (6.4-8.2) Albumin 2.2 G/DL (3.4-5.0) L Globulin 4.6 g/dL Albumin/Globulin Ratio 0.5 (1.0-2.7) L Current Medications Medications (Trade) Dose Ordered Sig/Penny Route PRN Reason Start Time Stop Time Status Last Admin Dose Admin Acetaminophen (Tylenol) 500 mg Q6H PRN GT FEVER 01/21/20 20:45 02/20/20 20:44 01/21/20 20:59 Amlodipine Besylate (Norvasc) 5 mg BID GT 01/22/20 18:00 02/20/20 15:44 01/22/20 18:52 Aspirin (ASA) 81 mg DAILY GT 01/20/20 09:00 03/05/20 08:59 01/22/20 09:13 Atorvastatin Calcium (Lipitor) 10 mg BEDTIME GT 01/17/20 21:00 04/16/20 20:59 01/22/20 20:41 Chlorhexidine Gluconate (Ling-Hex 2%) 1 applic DAILY@1999 TOPIC 01/17/20 20:00 04/16/20 19:59 01/22/20 20:40 Dextrose (Dextrose 50%) 25 ml Q30M PRN IV Hypoglycemia 01/15/20 22:15 04/14/20 22:14 Dextrose (Dextrose 50%) 50 ml Q30M PRN IV Hypoglycemia 01/15/20 22:15 04/14/20 22:14 01/22/20 17:54 Isosorbide Dinitrate (Isordil) 10 mg TID GT 01/20/20 09:00 02/19/20 08:59 01/22/20 18:53 Lansoprazole (Prevacid) 30 mg BID GT 01/19/20 18:00 02/18/20 17:59 01/22/20 18:49 Meropenem 500 mg/ Sodium Chloride 55 ml @ 110 mls/hr Q24H IVPB 01/22/20 10:30 01/27/20 10:29 01/22/20 11:47 Metoclopramide HCl (Reglan) 5 mg Q6H PRN IVP Nausea & Vomiting 01/15/20 22:15 02/14/20 22:14 Metoprolol Tartrate (Lopressor) 25 mg Q12HR ORAL 01/23/20 09:00 04/22/20 08:59 Tobramycin Sulfate (Nebcin) 300 mg Q12HR INH 01/22/20 10:00 01/29/20 09:59 01/22/20 11:28 Vancomycin HCl (Vanco pharmacy to dose) 1 ea DAILY PRN MISC Per rx protocol 01/15/20 22:15 02/14/20 22:14 Zinc Oxide (Zinc Oxide) 1 applic TIDPRN PRN TOPIC diogenes GT 01/16/20 13:15 04/15/20 13:14 01/16/20 14:55 Ro Pack M.D. Jan 23, 2020 08:39
[2020-01-23] MEDS: Metoprolol Tartrate 12.5mg TAB ORAL SCH ×2 (08:41→20:34)
[2020-01-23] MEDS: Tobramycin for inhalation INH SCH ×4 (11:18→22:13)
[2020-01-23 12:00] VITALS: BP 145/87
--- NOTE | 2020-01-23 12:57 | Pulmonology Progress Note ---
Subjective ROS Limited/Unobtainable: No Interval Events: Doing well; Constitutional: Reports: no symptoms HEENT: Repors: no symptoms Respiratory: Reports: no symptoms Cardiovascular: Reports: no symptoms Gastrointestinal/Abdominal: Reports: no symptoms Allergies: Coded Allergies: No Known Allergies (Unverified , 10/10/17) All Systems: reviewed and negative except above Objective Last 24 Hour Vital Signs Date Time Temp Pulse Resp B/P (MAP) Pulse Ox O2 Delivery O2 Flow Rate FiO2 01/23/20 12:00 Mechanical Ventilator Mechanical Ventilator 01/23/20 12:00 98.2 80 20 145/87 (106) 100 01/23/20 12:00 40 01/23/20 11:22 80 24 85 01/23/20 08:00 40 01/23/20 08:00 99.5 88 20 167/80 (109) 100 01/23/20 08:00 Mechanical Ventilator Mechanical Ventilator 01/23/20 07:44 82 01/23/20 07:20 86 23 85 01/23/20 04:00 Mechanical Ventilator Mechanical Ventilator 01/23/20 04:00 98.2 83 20 155/79 (104) 100 01/23/20 04:00 40 01/23/20 03:36 81 01/23/20 02:30 85 27 85 01/23/20 01:08 86 22 144/68 100 01/23/20 00:38 97 24 154/92 100 01/23/20 00:00 98.2 91 24 154/92 (112) 100 01/23/20 00:00 Mechanical Ventilator Mechanical Ventilator 01/22/20 23:30 98 01/22/20 22:42 87 26 100 01/22/20 20:40 91 158/84 01/22/20 20:00 Mechanical Ventilator Mechanical Ventilator 01/22/20 20:00 40 01/22/20 20:00 99.1 91 26 158/84 (108) 100 01/22/20 19:10 100 33 100 01/22/20 19:02 96 01/22/20 18:53 178/85 01/22/20 18:52 81 178/85 01/22/20 16:00 40 01/22/20 16:00 91 01/22/20 16:00 Mechanical Ventilator Mechanical Ventilator 01/22/20 16:00 96.3 70 23 124/77 (93) 100 01/22/20 15:12 83 33 50 01/22/20 13:30 140/78 Intake and Output 01/22/20 01/23/20 19:00 07:00 Intake Total 915 ml 735 ml Output Total 300 ml 300 ml Balance 615 ml 435 ml Free Water 200 ml 250 ml IV Total 55 ml Tube Feeding 420 ml 385 ml Other 240 ml 100 ml Output Urine Total 300 ml 300 ml General Appearance: no acute distress HEENT: normocephalic, other - trach Respiratory: chest wall non-tender, other - coarse lung sounds Cardiovascular: normal rate, regular rhythm Abdomen: soft, non tender Genitourinary: other - [place] Extremities: other - trace edema Microbiology Date/Time Source Procedure Growth Status 01/22/20 14:43 Thoracic Fluid Gram Stain Pending Resulted 01/22/20 14:43 Thoracic Fluid Body Fluid Culture - Preliminary NO GROWTH Resulted 01/21/20 05:20 Blood Blood Culture - Preliminary NO GROWTH AFTER 24 HOURS Resulted Laboratory Tests 01/22/20 14:43: Body Fluid Glucose [Pending], Body Fluid Total Protein [Pending], Body Fluid Lactate Dehydrogenase [Pending] 01/22/20 17:45: POC Whole Blood Glucose [Pending] 01/22/20 18:59: POC Whole Blood Glucose 115H 01/23/20 01:06: POC Whole Blood Glucose 83 01/23/20 03:00: White Blood Count 17.9H, Red Blood Count 2.53L, Hemoglobin 7.2L, Hematocrit 21.3L, Mean Corpuscular Volume 84, Mean Corpuscular Hemoglobin 28.6, Mean Corpuscular Hemoglobin Concent 34.1, Red Cell Distribution Width 15.1H, Platelet Count 167, Mean Platelet Volume 5.7L, Neutrophils (%) (Auto) , Lymphocytes (%) (Auto) , Monocytes (%) (Auto) , Eosinophils (%) (Auto) , Basophils (%) (Auto) , Differential Total Cells Counted 100, Neutrophils % (Manual) 87H, Lymphocytes % (Manual) 11L, Monocytes % (Manual) 2, Eosinophils % (Manual) 0, Basophils % (Manual) 0, Band Neutrophils 0, Platelet Estimate Adequate, Platelet Morphology Normal, Hypochromasia 2+, Anisocytosis 1+, Prothrombin Time 14.8H, Prothromb Time International Ratio 1.4H, Activated Partial Thromboplast Time 35H, Sodium Level 141, Potassium Level 3.9, Chloride Level 100, Carbon Dioxide Level 24, Anion Gap 17H, Blood Urea Nitrogen 122H, Creatinine 4.2H, Estimat Glomerular Filtration Rate 11.4, Glucose Level 80, Calcium Level 7.9L, Phosphorus Level 6.1H, Magnesium Level 2.7H, Total Bilirubin 0.6, Aspartate Amino Transf (AST/SGOT) 38H, Alanine Aminotransferase (ALT/SGPT) 19, Alkaline Phosphatase 345H, C-Reactive Protein, Quantitative 26.7H, Pro-B-Type Natriuretic Peptide > 70128Z, Total Protein 6.8, Albumin 2.2L, Globulin 4.6, Albumin/Globulin Ratio 0.5L 01/23/20 06:12: POC Whole Blood Glucose 84 Current Medications Medications (Trade) Dose Ordered Sig/Penny Route PRN Reason Start Time Stop Time Status Last Admin Dose Admin Acetaminophen (Tylenol) 500 mg Q6H PRN GT FEVER 01/21/20 20:45 02/20/20 20:44 01/21/20 20:59 Amlodipine Besylate (Norvasc) 5 mg BID GT 01/22/20 18:00 02/20/20 15:44 01/22/20 18:52 Aspirin (ASA) 81 mg DAILY GT 01/20/20 09:00 03/05/20 08:59 01/22/20 09:13 Atorvastatin Calcium (Lipitor) 10 mg BEDTIME GT 01/17/20 21:00 04/16/20 20:59 01/22/20 20:41 Chlorhexidine Gluconate (Ling-Hex 2%) 1 applic DAILY@1999 TOPIC 01/17/20 20:00 04/16/20 19:59 01/22/20 20:40 Dextrose (Dextrose 50%) 25 ml Q30M PRN IV Hypoglycemia 01/15/20 22:15 04/14/20 22:14 Dextrose (Dextrose 50%) 50 ml Q30M PRN IV Hypoglycemia 01/15/20 22:15 04/14/20 22:14 01/22/20 17:54 Isosorbide Dinitrate (Isordil) 10 mg TID GT 01/20/20 09:00 02/19/20 08:59 01/22/20 18:53 Lansoprazole (Prevacid) 30 mg BID GT 01/19/20 18:00 1/5/21 17:59 01/23/20 08:39 Meropenem 500 mg/ Sodium Chloride 55 ml @ 110 mls/hr Q24H IVPB 01/22/20 10:30 01/27/20 10:29 01/22/20 11:47 Metoclopramide HCl (Reglan) 5 mg Q6H PRN IVP Nausea & Vomiting 01/15/20 22:15 02/14/20 22:14 Metoprolol Tartrate (Lopressor) 25 mg Q12HR ORAL 01/23/20 09:00 04/22/20 08:59 Tobramycin Sulfate (Nebcin) 300 mg Q12HR INH 01/22/20 10:00 01/29/20 09:59 01/23/20 12:49 Vancomycin HCl (Vanco pharmacy to dose) 1 ea DAILY PRN MISC Per rx protocol 01/15/20 22:15 02/14/20 22:14 Zinc Oxide (Zinc Oxide) 1 applic TIDPRN PRN TOPIC diogenes GT 01/16/20 13:15 04/15/20 13:14 01/16/20 14:55 Assessment/Plan Assessment/Plan 1. Large left effusion. - S/p thoracentesis; CXR better 2. Chronic respiratory failure. - on trach, current setting: AC 14, VT 500, FiO2 50%, PEEP 5 - Cont AC mode - Currently saturating at 98% 3. Sepsis. - WBC 26.3 -> 20.5 4. Anemia - s/p 1 unit pRBC - Hgb 7 -> 9 -> 8.6 s/p HD Broad-spectrum antibiotics. Pulmonary hygiene. DVT and GI prophylaxes. We will follow carefully. TIme spent for this case was approximately 31 minutes Elijah Stephen MD Jan 23, 2020 12:57
[2020-01-23] MEDS: Meropenem 500 MG in NS 55 ML IVPB SCH (13:36)
--- NOTE | 2020-01-23 13:42 | Nephrology Progress Note ---
Assessment/Plan Problem List: (1) ARF (acute renal failure) (2) Pacemaker (3) Sepsis (4) Hyponatremia Assessment (1) JAVEIR (acute kidney injury) (2) Renal failure (ARF), acute on chronic (3) Feeding by G-tube (4) Tracheostomy in place (5) Electrolyte imbalance, hyponatremia (6) Anemia, severe (7) Respiratory failure, acute and chronic (8) Elevated lipase, pancreatitis (9) Elevated troponin I (10) Sepsis Plan January 22: Seen earlier during dialysis. Labs reviewed. Medication list reviewed. Continue current management. January 21: Labs reviewed. Medication list reviewed. Next hemodialysis tomorrow. Blood pressure medication adjusted. January 20: Dialyzed yesterday. Labs reviewed. Continue per current management. Dialysis as needed. Add Norvasc to blood pressure regimen January 19: Due for dialysis today. Labs reviewed. Continue her current management. Continue to monitor renal parameters and electrolytes. January 18: Dialyzed yesterday. Labs reviewed. Renal parameters electrolytes much improved. Dialysis again tomorrow. Continue rest. January 17: Dialyzed this morning. Labs reviewed. Renal parameters and electrolyte abnormalities improved. Discussed with RN. Continue per consultants. January 16: Dialyzed yesterday. Labs improved. Next dialysis tomorrow. Continue per consultants. January 15: Patient to have dialysis catheter. Emergency dialysis for correction of uremia and electrolyte imbalances Antibiotics Transfusion Continue to monitor renal parameters Per orders Discussed with RN Subjective ROS Limited/Unobtainable: Yes Objective Objective Last 24 Hour Vital Signs Date Time Temp Pulse Resp B/P (MAP) Pulse Ox O2 Delivery O2 Flow Rate FiO2 01/23/20 13:37 162/93 01/23/20 12:00 Mechanical Ventilator Mechanical Ventilator 01/23/20 12:00 98.2 80 20 145/87 (106) 100 01/23/20 12:00 40 01/23/20 11:41 81 01/23/20 11:22 80 24 85 01/23/20 08:00 40 01/23/20 08:00 99.5 88 20 167/80 (109) 100 01/23/20 08:00 Mechanical Ventilator Mechanical Ventilator 01/23/20 07:44 82 01/23/20 07:20 86 23 85 01/23/20 04:00 Mechanical Ventilator Mechanical Ventilator 01/23/20 04:00 98.2 83 20 155/79 (104) 100 01/23/20 04:00 40 01/23/20 03:36 81 01/23/20 02:30 85 27 85 01/23/20 01:08 86 22 144/68 100 01/23/20 00:38 97 24 154/92 100 01/23/20 00:00 98.2 91 24 154/92 (112) 100 01/23/20 00:00 Mechanical Ventilator Mechanical Ventilator 01/22/20 23:30 98 01/22/20 22:42 87 26 100 01/22/20 20:40 91 158/84 01/22/20 20:00 Mechanical Ventilator Mechanical Ventilator 01/22/20 20:00 40 01/22/20 20:00 99.1 91 26 158/84 (108) 100 01/22/20 19:10 100 33 100 01/22/20 19:02 96 01/22/20 18:53 178/85 01/22/20 18:52 81 178/85 01/22/20 16:00 40 01/22/20 16:00 91 01/22/20 16:00 Mechanical Ventilator Mechanical Ventilator 01/22/20 16:00 96.3 70 23 124/77 (93) 100 01/22/20 15:12 83 33 50 Intake and Output 01/22/20 01/23/20 19:00 07:00 Intake Total 915 ml 735 ml Output Total 300 ml 300 ml Balance 615 ml 435 ml Free Water 200 ml 250 ml IV Total 55 ml Tube Feeding 420 ml 385 ml Other 240 ml 100 ml Output Urine Total 300 ml 300 ml Current Medications Medications (Trade) Dose Ordered Sig/Penny Route PRN Reason Start Time Stop Time Status Last Admin Dose Admin Acetaminophen (Tylenol) 500 mg Q6H PRN GT FEVER 01/21/20 20:45 02/20/20 20:44 01/21/20 20:59 Amlodipine Besylate (Norvasc) 5 mg BID GT 01/22/20 18:00 02/20/20 15:44 01/22/20 18:52 Aspirin (ASA) 81 mg DAILY GT 01/20/20 09:00 03/05/20 08:59 01/22/20 09:13 Atorvastatin Calcium (Lipitor) 10 mg BEDTIME GT 01/17/20 21:00 04/16/20 20:59 12/9/20 20:41 Chlorhexidine Gluconate (Ling-Hex 2%) 1 applic DAILY@2000 TOPIC 01/17/20 20:00 04/16/20 19:59 01/22/20 20:40 Dextrose (Dextrose 50%) 25 ml Q30M PRN IV Hypoglycemia 01/15/20 22:15 04/14/20 22:14 Dextrose (Dextrose 50%) 50 ml Q30M PRN IV Hypoglycemia 01/15/20 22:15 04/14/20 22:14 01/22/20 17:54 Isosorbide Dinitrate (Isordil) 10 mg TID GT 01/20/20 09:00 02/19/20 08:59 01/23/20 13:37 Lansoprazole (Prevacid) 30 mg BID GT 01/19/20 18:00 02/18/20 17:59 01/23/20 08:39 Meropenem 500 mg/ Sodium Chloride 55 ml @ 110 mls/hr Q24H IVPB 01/22/20 10:30 01/27/20 10:29 01/23/20 13:36 Metoclopramide HCl (Reglan) 5 mg Q6H PRN IVP Nausea & Vomiting 01/15/20 22:15 02/14/20 22:14 Metoprolol Tartrate (Lopressor) 25 mg Q12HR ORAL 01/23/20 09:00 04/22/20 08:59 Phytonadione (Vitamin K) 10 mg ONCE SUBQ 01/23/20 14:00 01/23/20 15:00 Tobramycin Sulfate (Nebcin) 300 mg Q12HR INH 01/22/20 10:00 01/29/20 09:59 01/23/20 12:49 Vancomycin HCl (Vanco pharmacy to dose) 1 ea DAILY PRN MISC Per rx protocol 01/15/20 22:15 02/14/20 22:14 Zinc Oxide (Zinc Oxide) 1 applic TIDPRN PRN TOPIC diogenes GT 01/16/20 13:15 04/15/20 13:14 01/16/20 14:55 Laboratory Tests 01/22/20 14:43: Body Fluid Glucose [Pending], Body Fluid Total Protein [Pending], Body Fluid Lactate Dehydrogenase [Pending] 01/22/20 17:45: POC Whole Blood Glucose [Pending] 01/22/20 18:59: POC Whole Blood Glucose 115H 01/23/20 01:06: POC Whole Blood Glucose 83 01/23/20 03:00: White Blood Count 17.9H, Red Blood Count 2.53L, Hemoglobin 7.2L, Hematocrit 21.3L, Mean Corpuscular Volume 84, Mean Corpuscular Hemoglobin 28.6, Mean Corpuscular Hemoglobin Concent 34.1, Red Cell Distribution Width 15.1H, Platelet Count 167, Mean Platelet Volume 5.7L, Neutrophils (%) (Auto) , Lymphocytes (%) (Auto) , Monocytes (%) (Auto) , Eosinophils (%) (Auto) , Basophils (%) (Auto) , Differential Total Cells Counted 100, Neutrophils % (Manual) 87H, Lymphocytes % (Manual) 11L, Monocytes % (Manual) 2, Eosinophils % (Manual) 0, Basophils % (Manual) 0, Band Neutrophils 0, Platelet Estimate Adequate, Platelet Morphology Normal, Hypochromasia 2+, Anisocytosis 1+, Prothrombin Time 14.8H, Prothromb Time International Ratio 1.4H, Activated Partial Thromboplast Time 35H, Sodium Level 141, Potassium Level 3.9, Chloride Level 100, Carbon Dioxide Level 24, Anion Gap 17H, Blood Urea Nitrogen 122H, Creatinine 4.2H, Estimat Glomerular Filtration Rate 11.4, Glucose Level 80, Calcium Level 7.9L, Phosphorus Level 6.1H, Magnesium Level 2.7H, Total Bilirubin 0.6, Aspartate Amino Transf (AST/SGOT) 38H, Alanine Aminotransferase (ALT/SGPT) 19, Alkaline Phosphatase 345H, C-Reactive Protein, Quantitative 26.7H, Pro-B-Type Natriuretic Peptide > [id number], Total Protein 6.8, Albumin 2.2L, Globulin 4.6, Albumin/Globulin Ratio 0.5L 01/23/20 06:12: POC Whole Blood Glucose 84 01/23/20 13:07: POC Whole Blood Glucose 88 Height (Feet): 5 Height (Inches): 6.00 Weight (Pounds): 150 General Appearance: no apparent distress Cardiovascular: normal rate Respiratory/Chest: decreased breath sounds Abdomen: distended Johnny Houston MD Jan 23, 2020 13:42
[2020-01-23] MEDS ORDERED: Phytonadione 10 mg/mL 1ml amp SUBQ SCH (14:00)
--- NOTE | 2020-01-23 14:24 | Surgery Progress Note ---
Surgery Progress Note Subjective Procedure Performed Left femoral temporary hemodialysis catheter insertion Additional Comments wbc trending down trach stable weaning vent Objective Last 24 Hour Vital Signs Date Time Temp Pulse Resp B/P (MAP) Pulse Ox O2 Delivery O2 Flow Rate FiO2 01/23/20 13:37 162/93 01/23/20 12:00 Mechanical Ventilator Mechanical Ventilator 01/23/20 12:00 98.2 80 20 145/87 (106) 100 01/23/20 12:00 40 01/23/20 11:41 81 01/23/20 11:22 80 24 85 01/23/20 08:00 40 01/23/20 08:00 99.5 88 20 167/80 (109) 100 01/23/20 08:00 Mechanical Ventilator Mechanical Ventilator 01/23/20 07:44 82 01/23/20 07:20 86 23 85 01/23/20 04:00 Mechanical Ventilator Mechanical Ventilator 01/23/20 04:00 98.2 83 20 155/79 (104) 100 01/23/20 04:00 40 01/23/20 03:36 81 01/23/20 02:30 85 27 85 01/23/20 01:08 86 22 144/68 100 01/23/20 00:38 97 24 154/92 100 01/23/20 00:00 98.2 91 24 154/92 (112) 100 01/23/20 00:00 Mechanical Ventilator Mechanical Ventilator 01/22/20 23:30 98 01/22/20 22:42 87 26 100 01/22/20 20:40 91 158/84 01/22/20 20:00 Mechanical Ventilator Mechanical Ventilator 01/22/20 20:00 40 01/22/20 20:00 99.1 91 26 158/84 (108) 100 01/22/20 19:10 100 33 100 01/22/20 19:02 96 01/22/20 18:53 178/85 01/22/20 18:52 81 178/85 01/22/20 16:00 40 01/22/20 16:00 91 01/22/20 16:00 Mechanical Ventilator Mechanical Ventilator 01/22/20 16:00 96.3 70 23 124/77 (93) 100 01/22/20 15:12 83 33 50 I&O Intake and Output 01/22/20 01/23/20 19:00 07:00 Intake Total 915 ml 735 ml Output Total 300 ml 300 ml Balance 615 ml 435 ml Free Water 200 ml 250 ml IV Total 55 ml Tube Feeding 420 ml 385 ml Other 240 ml 100 ml Output Urine Total 300 ml 300 ml Dressing: saturated Cardiovascular: RSR Respiratory: decreased breath sounds Abdomen: non-tender, present bowel sounds, non-distended Extremities: edema, no tenderness, no cyanosis Laboratory Tests Test 01/22/20 14:43 01/22/20 17:45 01/22/20 18:59 01/23/20 01:06 Body Fluid Glucose Pending Body Fluid Total Protein Pending Body Fluid Lactate Dehydrogenase Pending POC Whole Blood Glucose Pending 115 MG/DL (74-106) H 83 MG/DL (74-106) Test 01/23/20 03:00 01/23/20 06:12 01/23/20 13:07 White Blood Count 17.9 K/UL (4.8-10.8) H Red Blood Count 2.53 M/UL (4.20-5.40) L Hemoglobin 7.2 G/DL (12.0-16.0) L Hematocrit 21.3 % (37.0-47.0) L Mean Corpuscular Volume 84 FL (80-99) Mean Corpuscular Hemoglobin 28.6 PG (27.0-31.0) Mean Corpuscular Hemoglobin Concent 34.1 G/DL (32.0-36.0) Red Cell Distribution Width 15.1 % (11.6-14.8) H Platelet Count 167 K/UL (150-450) Mean Platelet Volume 5.7 FL (6.5-10.1) L Neutrophils (%) (Auto) % (45.0-75.0) Lymphocytes (%) (Auto) % (20.0-45.0) Monocytes (%) (Auto) % (1.0-10.0) Eosinophils (%) (Auto) % (0.0-3.0) Basophils (%) (Auto) % (0.0-2.0) Differential Total Cells Counted 100 Neutrophils % (Manual) 87 % (45-75) H Lymphocytes % (Manual) 11 % (20-45) L Monocytes % (Manual) 2 % (1-10) Eosinophils % (Manual) 0 % (0-3) Basophils % (Manual) 0 % (0-2) Band Neutrophils 0 % (0-8) Platelet Estimate Adequate Platelet Morphology Normal Hypochromasia 2+ Anisocytosis 1+ Prothrombin Time 14.8 SEC (9.30-11.50) H Prothromb Time International Ratio 1.4 (0.9-1.1) H Activated Partial Thromboplast Time 35 SEC (23-33) H Sodium Level 141 MMOL/L (136-145) Potassium Level 3.9 MMOL/L (3.5-5.1) Chloride Level 100 MMOL/L (98-107) Carbon Dioxide Level 24 MMOL/L (21-32) Anion Gap 17 mmol/L (5-15) H Blood Urea Nitrogen 122 mg/dL (7-18) H Creatinine 4.2 MG/DL (0.55-1.30) H Estimat Glomerular Filtration Rate 11.4 mL/min (>60) Glucose Level 80 MG/DL (74-106) Calcium Level 7.9 MG/DL (8.5-10.1) L Phosphorus Level 6.1 MG/DL (2.5-4.9) H Magnesium Level 2.7 MG/DL (1.8-2.4) H Total Bilirubin 0.6 MG/DL (0.2-1.0) Aspartate Amino Transf (AST/SGOT) 38 U/L (15-37) H Alanine Aminotransferase (ALT/SGPT) 19 U/L (12-78) Alkaline Phosphatase 345 U/L (46-116) H C-Reactive Protein, Quantitative 26.7 mg/dL (0.00-0.90) H Pro-B-Type Natriuretic Peptide > 29421 pg/mL (0-125) H Total Protein 6.8 G/DL (6.4-8.2) Albumin 2.2 G/DL (3.4-5.0) L Globulin 4.6 g/dL Albumin/Globulin Ratio 0.5 (1.0-2.7) L POC Whole Blood Glucose 84 MG/DL (74-106) 88 MG/DL (74-106) Plan Problems: (1) Dehydration (2) Acidosis (3) Depression (4) Pleural effusion (5) Respiratory failure (6) Schizophrenia (7) Hypoxia (8) UTI (urinary tract infection) (9) Pneumonia (10) NSTEMI (non-ST elevated myocardial infarction) (11) Tracheostomy in place (12) Feeding by G-tube (13) JAVIER (acute kidney injury) (14) Acute encephalopathy (15) Sacral decubitus ulcer, stage IV (16) Chronic respiratory failure (17) Ascites (18) Bacteremia (19) Hypernatremia (20) Proteinuria (21) Electrolyte imbalance (22) ACS (acute coronary syndrome) (23) Aortic dissection, thoracic (24) Respiratory failure, acute and chronic (25) JAVIER (acute kidney injury) (26) Abrasion of lip, initial encounter (27) COPD with exacerbation (28) Elevated alkaline phosphatase level (29) Renal failure (ARF), acute on chronic (30) HCAP (healthcare-associated pneumonia) (31) GT CLOGGED (32) Elevated lipase (33) Pancreatitis (34) Elevated troponin (35) Hypokalemia (36) Hyponatremia (37) Anemia (38) Renal failure (39) ARF (acute renal failure) (40) Pacemaker (41) Sepsis Assessment & Plan: leukocytosis anemia on HD renal insufficiency wounds addressed pt presented on admission with Tracheostomy ,GT and Multiple Pressure Injuries. Skin assessment of skin under tracheal collar without evidence of skin breakdown. Peristomal GT site excoriated.Moderate amt of dark red sanguineous exudate. Full Thickness Sacral Pressure Injury with undermined borders (L)9 cm x (W)12cm x (D)1.8cm,Undermining clockwise8-9 by 2.2cm @1o'clock,undermining clockwise 1-4 by 1.9 @ 9'oclock Scattered necrotic tissue within wound bed. Borders are loose and necrotic with marginal erythema to outer perimeter of wound. NO elevation in skin temp noted periwound. Wound is malodorous. Small amt Brown exudate noted. Resolving Pressure Injury L Ischium(L)1.5cm x (W)1.5cm. Base of wound is 80% pink epithelial with an area that is moist and pink. NO odor or exudate noted. Bilat foot-drop noted. L Heel is boggy with non-blanchable erythema(L)4cm x (W)4cm. R heel is boggy with non-Blanchable erythema(L)5cm x (W)6cm. Tx.Plan: Cleanse sacral wound with Dakin's 0.125% annie. Loosely pack with Dakin's moistened Kerlix(Attention to undermined borders). Apply Moisture Barrier Paste periwound. Cover with Optifoam drsg. Change Daily and PRN. Apply Cavilon Skin Barrier to R and L Hels. Cover each heel with Optifoam drsg. Change every 7 days and prn. Reposition at least every 2hours or as tolerated. Off-load heels with Pillow. APM/JENNIFER MAttress overlay DAILY ESTIMATED NEEDS: Needs based on Critical care, wound, renal dysfunction 56 kg abw 28-33 kcals/kg 8944-8757 total kcals W/ HD (1.5-2.0) g protein/kg 84-112 g total protein Fluid per MD mL/kg . total fluid mLs NUTRITION DIAGNOSIS: * Swallowing difficulty R/T dysphagia, respiratory status as evidenced by vent dep via trach, GT Dep. * Increase kcal and pro needs r/t wound healing, renal dysfunction as evidenced by admitted w/ large, advanced sacral wound, previously stage 4, pending eval, admitted w/ JAVIER, pending HD. CURRENT TF:NPO ENTERAL NUTRITION RECOMMENDATIONS: Nepro @ 40ml/hr x 24 hrs + Prosource 1pkt QD to provide 960ml, 1728kcal, 78g+11g prot, 698ml free water * As medically appropriate, initiate TF on Nepro, rec goal rate fo 40ml/hr x 24 hrs * Add Prosource 1pkt QD to better meet increased protein needs (additional 11g prot) * Water flush per MD/ HOB over 30 degrees ADDITIONAL RECOMMENDATIONS: * Per SNF in NOV 2019: HT=63"/ Rec daily calibrated bedscale wt * Monitor for continuity of HD: non-tunneled cath placement ordered * Monitor lytes and renal fxn for improvement (Na low, K and phos elevated) * Wound care: add Nephrovite x 1, ZnSO4 220mg QD x 10 days Reynaldo BID via PEG (mix w/ 2-4 oz water) * Monitor BG closely for hypoglycemia while NPO (h/o DM, on Nacl 3% to correct hyponatremia, consider accuchecks) (42) Hyponatremia Lane Saavedra Jan 23, 2020 14:24
[2020-01-23 16:00] VITALS: BP 148/99
--- NOTE | 2020-01-23 16:18 | General Progress Note ---
Subjective HEENT: Reports: no symptoms Cardiovascular: Reports: no symptoms Respiratory: Reports: no symptoms Genitourinary: Reports: no symptoms Neurologic/Psychiatric: Reports: anxiety, emotional problems Endocrine: Reports: no symptoms Hematologic/Lymphatic: Reports: no symptoms Allergies: Coded Allergies: No Known Allergies (Unverified , 10/10/17) Objective Last 24 Hour Vital Signs Date Time Temp Pulse Resp B/P (MAP) Pulse Ox O2 Delivery O2 Flow Rate FiO2 01/23/20 13:37 162/93 01/23/20 12:00 Mechanical Ventilator Mechanical Ventilator 01/23/20 12:00 98.2 80 20 145/87 (106) 100 01/23/20 12:00 40 01/23/20 11:41 81 01/23/20 11:22 80 24 85 01/23/20 08:00 40 01/23/20 08:00 99.5 88 20 167/80 (109) 100 01/23/20 08:00 Mechanical Ventilator Mechanical Ventilator 01/23/20 07:44 82 01/23/20 07:20 86 23 85 01/23/20 04:00 Mechanical Ventilator Mechanical Ventilator 01/23/20 04:00 98.2 83 20 155/79 (104) 100 01/23/20 04:00 40 01/23/20 03:36 81 01/23/20 02:30 85 27 85 01/23/20 01:08 86 22 144/68 100 01/23/20 00:38 97 24 154/92 100 01/23/20 00:00 98.2 91 24 154/92 (112) 100 01/23/20 00:00 Mechanical Ventilator Mechanical Ventilator 01/22/20 23:30 98 01/22/20 22:42 87 26 100 01/22/20 20:40 91 158/84 01/22/20 20:00 Mechanical Ventilator Mechanical Ventilator 01/22/20 20:00 40 01/22/20 20:00 99.1 91 26 158/84 (108) 100 01/22/20 19:10 100 33 100 01/22/20 19:02 96 01/22/20 18:53 178/85 01/22/20 18:52 81 178/85 Intake and Output 01/22/20 01/23/20 19:00 07:00 Intake Total 915 ml 735 ml Output Total 300 ml 300 ml Balance 615 ml 435 ml Free Water 200 ml 250 ml IV Total 55 ml Tube Feeding 420 ml 385 ml Other 240 ml 100 ml Output Urine Total 300 ml 300 ml Laboratory Tests 01/22/20 17:45: POC Whole Blood Glucose [Pending] 01/22/20 18:59: POC Whole Blood Glucose 115H 01/23/20 01:06: POC Whole Blood Glucose 83 01/23/20 03:00: White Blood Count 17.9H, Red Blood Count 2.53L, Hemoglobin 7.2L, Hematocrit 21.3L, Mean Corpuscular Volume 84, Mean Corpuscular Hemoglobin 28.6, Mean Corpuscular Hemoglobin Concent 34.1, Red Cell Distribution Width 15.1H, Platelet Count 167, Mean Platelet Volume 5.7L, Neutrophils (%) (Auto) , Lymphocytes (%) (Auto) , Monocytes (%) (Auto) , Eosinophils (%) (Auto) , Basophils (%) (Auto) , Differential Total Cells Counted 100, Neutrophils % (Manual) 87H, Lymphocytes % (Manual) 11L, Monocytes % (Manual) 2, Eosinophils % (Manual) 0, Basophils % (Manual) 0, Band Neutrophils 0, Platelet Estimate Adequate, Platelet Morphology Normal, Hypochromasia 2+, Anisocytosis 1+, Prothrombin Time 14.8H, Prothromb Time International Ratio 1.4H, Activated Partial Thromboplast Time 35H, Sodium Level 141, Potassium Level 3.9, Chloride Level 100, Carbon Dioxide Level 24, Anion Gap 17H, Blood Urea Nitrogen 122H, Creatinine 4.2H, Estimat Glomerular Filtration Rate 11.4, Glucose Level 80, Calcium Level 7.9L, Phosphorus Level 6.1H, Magnesium Level 2.7H, Total Bilirubin 0.6, Aspartate Amino Transf (AST/SGOT) 38H, Alanine Aminotransferase (ALT/SGPT) 19, Alkaline Phosphatase 345H, C-Reactive Protein, Quantitative 26.7H, Pro-B-Type Natriuretic Peptide > 93060U, Total Protein 6.8, Albumin 2.2L, Globulin 4.6, Albumin/Globulin Ratio 0.5L 01/23/20 06:12: POC Whole Blood Glucose 84 01/23/20 13:07: POC Whole Blood Glucose 88 Height (Feet): 5 Height (Inches): 6.00 Weight (Pounds): 150 General Appearance: WD/WN, mild distress, agitated EENT: normal ENT inspection Neck: supple Cardiovascular: normal rate, regular rhythm, no gallop/murmur Respiratory/Chest: lungs clear, normal breath sounds, no respiratory distress, no accessory muscle use Extremities: non-tender Neurologic: alert, responsive, depressed affect Skin: normal pigmentation, warm/dry Assessment/Plan Status Narrative Patient is awake alert afebrile hemodynamically stable she underwent hemodialysis today she tolerated the procedure well to later fluid were removed emotionally patient is agitated is unexplained seizure and sadness facial expression she did not respond to questions in regard to the cause of distress one 0.5 mg IV every 8 hours on a regular basis was prescribed similar event in the past responded to this regimen for several days sepsis is progressively improving and she urine culture and blood culture are all negative now leukocytosis continue to decline and is 17 today repeat laboratory tests will be done in Lucas Campos MD, MD Jan 23, 2020 16:18
--- NOTE | 2020-01-23 16:36 | NUR ---
CASE MANAGEMENT REVIEW SI: SEPSIS, RENAL FAILURE, TRACH/VENT SUPPORT T-99.5 BP-167/80 HR-80 RR-20 AC-14 TV-500 PEEP-5 FIO2-40% H/H- 7.2/21.3 WBC-19.9 BUN-122 CREATININE-4.2 PHOS-6.1 MG-2.7 IS: ATIVAN IV MEROPENEM IV TOBRAMYCIN INH NORVASC GT LOPRESSOR GT ISORDIL GT PLAN: HEMODIALYSIS 01/23/2020 SDU STATUS
--- NOTE | 2020-01-23 16:57 | NUR ---
INSURANCE FAXED CLINICALS AND REVIEW TO [employer] T: [phone] F: [phone]
--- NOTE | 2020-01-23 19:15 | NUR ---
NURSE NOTES: Received report from Mckinley Amezcua RN. Patient asleep in bed, afebrile and no respiratory distress noted. SR at 68bpm on 5 lead opthalmic tech. Pt is arousable, opens eyes and tracks. trache to vent S7, AC 20, TV 500, FiO2 40% and PEEP 5 saturating at 97-99%. On nephro at 55ml/hr via GT infusing well, no residual and sediments noted. With Right AC 20g and left Wrist 22 G IV lines intact, patent and asymptomatic. With left femoral arden catheter intact and asymptomatic. Dressing was changed and now clean and dry. with FC to urine bag draining hematuria. Needs were attended. Bed rails are up and wheels are locked. Continue to monitor the patient
[2020-01-23 20:00] VITALS: BP 150/83
[2020-01-23] MEDS: Dyna-Hex 2% Top Sol 2oz TOPIC SCH (20:33)
[2020-01-23] MEDS: LORazepam Inj 2mg/ml 1ml IV SCH (22:10)
[2020-01-24] VITALS: BP 141/66
--- NOTE | 2020-01-24 01:10 | Cardiology Progress Note ---
Subjective DATE OF SERVICE: Jan 23, 2020 Remains in atrial fibrillation; rates now better controlled. Occasional PVC's - non-sustained BP parameters in high normal range. Off amiodarone Full vent support via trach s/p left thorocentesis 01/22/20 Objective Last 24 Hour Vital Signs Date Time Temp Pulse Resp B/P (MAP) Pulse Ox O2 Delivery O2 Flow Rate FiO2 01/24/20 00:00 97.9 67 20 141/66 (91) 100 01/24/20 00:00 40 01/23/20 23:46 68 01/23/20 22:40 75 18 138/63 100 01/23/20 22:13 74 21 100 Mechanical Ventilator 85 72 22 85 01/23/20 22:10 78 18 138/75 100 01/23/20 20:34 76 150/83 01/23/20 20:00 98.4 76 20 150/83 (105) 100 01/23/20 20:00 Mechanical Ventilator Mechanical Ventilator 01/23/20 20:00 40 01/23/20 19:34 74 01/23/20 19:22 78 27 60 01/23/20 17:08 85 148/99 01/23/20 16:00 40 01/23/20 16:00 99.7 85 20 148/99 (115) 100 01/23/20 16:00 Mechanical Ventilator Mechanical Ventilator 01/23/20 15:28 84 01/23/20 15:15 84 30 75 01/23/20 13:37 162/93 01/23/20 12:00 Mechanical Ventilator Mechanical Ventilator 01/23/20 12:00 98.2 80 20 145/87 (106) 100 01/23/20 12:00 40 01/23/20 11:41 81 01/23/20 11:22 80 24 100 Mechanical Ventilator 85 82 24 85 01/23/20 08:00 40 01/23/20 08:00 99.5 88 20 167/80 (109) 100 01/23/20 08:00 Mechanical Ventilator Mechanical Ventilator 01/23/20 07:44 82 01/23/20 07:20 86 23 85 01/23/20 04:00 Mechanical Ventilator Mechanical Ventilator 01/23/20 04:00 98.2 83 20 155/79 (104) 100 01/23/20 04:00 40 01/23/20 03:36 81 01/23/20 02:30 85 27 85 01/23/20 01:08 86 22 144/68 100 ROS: unchanged for 01/17/20 HEENT: Mechanically Ventilated, Thick Trach secretions RHYTHM: Afib LUNGS: bilateral rhonchi CARDIAC: normal S1 and S2, irregularly irregular ABDOMEN: normal bowel sounds, non tender, soft, G-Tube intact EXTREMITIES: normal inspection, trace edema Laboratory Tests Test 01/23/20 03:00 01/23/20 06:12 01/23/20 13:07 01/23/20 17:39 White Blood Count 17.9 K/UL (4.8-10.8) H Red Blood Count 2.53 M/UL (4.20-5.40) L Hemoglobin 7.2 G/DL (12.0-16.0) L Hematocrit 21.3 % (37.0-47.0) L Mean Corpuscular Volume 84 FL (80-99) Mean Corpuscular Hemoglobin 28.6 PG (27.0-31.0) Mean Corpuscular Hemoglobin Concent 34.1 G/DL (32.0-36.0) Red Cell Distribution Width 15.1 % (11.6-14.8) H Platelet Count 167 K/UL (150-450) Mean Platelet Volume 5.7 FL (6.5-10.1) L Neutrophils (%) (Auto) % (45.0-75.0) Lymphocytes (%) (Auto) % (20.0-45.0) Monocytes (%) (Auto) % (1.0-10.0) Eosinophils (%) (Auto) % (0.0-3.0) Basophils (%) (Auto) % (0.0-2.0) Differential Total Cells Counted 100 Neutrophils % (Manual) 87 % (45-75) H Lymphocytes % (Manual) 11 % (20-45) L Monocytes % (Manual) 2 % (1-10) Eosinophils % (Manual) 0 % (0-3) Basophils % (Manual) 0 % (0-2) Band Neutrophils 0 % (0-8) Platelet Estimate Adequate Platelet Morphology Normal Hypochromasia 2+ Anisocytosis 1+ Prothrombin Time 14.8 SEC (9.30-11.50) H Prothromb Time International Ratio 1.4 (0.9-1.1) H Activated Partial Thromboplast Time 35 SEC (23-33) H Sodium Level 141 MMOL/L (136-145) Potassium Level 3.9 MMOL/L (3.5-5.1) Chloride Level 100 MMOL/L (98-107) Carbon Dioxide Level 24 MMOL/L (21-32) Anion Gap 17 mmol/L (5-15) H Blood Urea Nitrogen 122 mg/dL (7-18) H Creatinine 4.2 MG/DL (0.55-1.30) H Estimat Glomerular Filtration Rate 11.4 mL/min (>60) Glucose Level 80 MG/DL (74-106) Calcium Level 7.9 MG/DL (8.5-10.1) L Phosphorus Level 6.1 MG/DL (2.5-4.9) H Magnesium Level 2.7 MG/DL (1.8-2.4) H Total Bilirubin 0.6 MG/DL (0.2-1.0) Aspartate Amino Transf (AST/SGOT) 38 U/L (15-37) H Alanine Aminotransferase (ALT/SGPT) 19 U/L (12-78) Alkaline Phosphatase 345 U/L (46-116) H C-Reactive Protein, Quantitative 26.7 mg/dL (0.00-0.90) H Pro-B-Type Natriuretic Peptide > 80651 pg/mL (0-125) H Total Protein 6.8 G/DL (6.4-8.2) Albumin 2.2 G/DL (3.4-5.0) L Globulin 4.6 g/dL Albumin/Globulin Ratio 0.5 (1.0-2.7) L POC Whole Blood Glucose 84 MG/DL (74-106) 88 MG/DL (74-106) 91 MG/DL (74-106) Test 01/23/20 23:18 POC Whole Blood Glucose 95 MG/DL (74-106) Microbiology Date/Time Source Procedure Growth Status 01/22/20 14:43 Thoracic Fluid Gram Stain - Final Resulted 01/22/20 14:43 Thoracic Fluid Body Fluid Culture - Preliminary NO GROWTH Resulted 01/21/20 05:20 Blood Blood Culture - Preliminary NO GROWTH AFTER 48 HOURS Resulted Assessment/Plan Assessment/Plan Chronic respiratory failure with trach Severe sepsis PAFib with rapid ventric response, now rate controlled. Ischemic cardiomyopathy - hx CABG and s/p NSTEMI in Dec 2019. Conduction system disease of the heart Hx of permanent pacemaker explant Acute on chronic systolic and diastolic CHF Pleural effusion - s/p left thorocentesis Anemia of chronic kidney disease and chronic disease Continue beta flori titration Anti-failure and anti-anginal regimen with titration Vent support Abx per ID Continuous cardiac monitoring Transfuse PRBC's for further drop of hemoglobin Deni Willams MD Jan 24, 2020 01:10
--- NOTE | 2020-01-24 02:20 | NUR ---
NURSE NOTES: Pt asleep in bed. no respiratory distress noted. pt is arosuable. linen and gown were changed. Continue to monitor dexter patient
[2020-01-24 04:00] VITALS: BP 158/78
[2020-01-24 05:17] LABS: CALCIUM 8.2 MG/DL (8.5-10.1); POTASSIUM 4.1 MMOL/L (3.5-5.1)
[2020-01-24 06:25] LABS: HEMATOCRIT 21.4 % (37.0-47.0); HEMOGLOBIN 7.1 G/DL (12.0-16.0); MEAN CORPUSCULAR VOLUME 85 FL (80-99); PLATELET COUNT 184 K/UL (150-450); RED BLOOD COUNT 2.52 M/UL (4.20-5.40); RED CELL DISTRIBUTION WIDTH 15.4 % (11.6-14.8)
[2020-01-24] MEDS: LORazepam Inj 2mg/ml 1ml IV SCH ×3 (06:29→21:48)
--- NOTE | 2020-01-24 07:05 | NUR ---
NURSE HAND-OFF REPORT: Important Events on Shift: none Patient Status: stable Diet: nephro at 35cc/hr Pending Orders: n Pending Results/Labs:n Pending MD notification:n Latest Vital Signs: Temperature 97.6 , Pulse 82 , B/P 146 /74 , Respiratory Rate 18 , O2 SAT 100 , Mechanical Ventilator, O2 Flow Rate . Vital Sign Comment: n EKG Rhythm: Sinus Rhythm Rhythm change?: N MD Notified?: Gabriel -Dr. Екатерина HATFIELD Response: Order Received& Read Back Latest Ch[place] Fall Score: 70 Fall Risk: High Risk Safety Measures: Call light Within Reach, Bed Alarm Zone 2, Side Rails Side Rails x2, Bed position Low and Locked. Fall Precautions: Yellow Socks Report given to ERASMO Blackwell. Pt stable and no respriatory distress noted.
--- NOTE | 2020-01-24 07:27 | NUR ---
NURSE NOTES: Received report from SHEBA RN, pt. in bed awake, appears obtunded, no signs or symptoms of acute cardiac or respiratory distress noted, bed alarm on side rails up x's3 and safety brakes engaged, pt. appears to be tolerating current vent settings well- AC 14, TV 500, Fio2 at 40% and peep 5- no distress noted, pt. has g tube running at 35cc/hr-no residual noted, pt. has Normna draining to gravity, pt. appears clean and dry, aspiration and skin precautions observed, Left wrist 22G IV intact and patent, repositioned and turned pt., safety measures continued, will continue with plan of care.
[2020-01-24 08:00] VITALS: BP 155/76
[2020-01-24] MEDS: Metoprolol Tartrate 12.5mg TAB ORAL SCH ×2 (08:01→21:47)
[2020-01-24] MEDS: Aspirin Baby 81mg GT SCH (08:01)
[2020-01-24] MEDS ORDERED: NS 275ml ONE (08:42)
--- NOTE | 2020-01-24 08:51 | Infectious Diseases Prog Note ---
Assessment/Plan 49yo F with: AF Sepsis Leukocytosis Hypoxia on vent Pneumonia c/b L pleural effusion (recurrent, prior determined to be transudative) - s/p thora 01/21, 1050cc removed Volume overload, BNP >35,0000, likely 2/2 progressive CKD --> ESRD ?Pancreatitis, Lipase >2000 Acute anemia to 5s CONS bacteremia, ?contaminant Aflutter w/ RVR 01/13 BCx 2/2 +S. epi COVID PCR neg Flu neg CXR: Large left pleural effusion. Bilateral interstitial and airspace infiltrates versus edema MRSA nares neg 01/16 BCx NTD 01/17 BCx / +Staph auricularis (skin colonizer) 01/18 Resp cx +MDR CRE PsA (S-gent) 01/18 C.dif neg 01/18 CXR: Similar opacification of the left hemithorax likely representing combination of pleural effusion with atelectasis versus pneumonia/edema. Decreased but persistent hazy opacity throughout the right lung may represent edema versus infectious/inflammatory process. 01/20 BCx NTD 01/21 L thora 1050 cc removed, cx NTD JAVIER on CKD On previous admission Sep-Oct 2019 required HD for short period Going to start HD this admission again R/o COVID 01/14 COVID PCR neg 12/29 neg at SNF per report H/o UTI 11/27 u/a wbc 30-40, nit neg, leuk +3; ucx ESBL P. mirablis, ESBL M. morganii 09/15/19 u/a wbc tnct, nit neg, leuk +3; ucx >100k MDR P. stuarti (S C eftriaxone, Meropenem) 10/07 u/a wbc tnct, nit neg, leuk ; ucx >100k VRE 10/15/19 u/a wbc tnct; ucx >100k ESBL P. stuarti (S ertapenem, aztreonam) H/o transudative pleural effusion 11/28 Sp Thora (w: 169, PMN: 2%, L: 49% , LDH: 57, prot 2.5); cx Neg H/o PNA 10/15/19 Resp cx ESBL P. mirabilis, MDR P.a. (S only to Gent) 09/22 Resp cx + MDR PsA (S-gent; I-colistin; R-levofloxacin, Zosyn, angelo) 09/16/19 Sp cx ESBL P. mirablis H/o PPM site (pocket) infection and pocket abscess 2ry to S. epi-11/2018, sp >6weeks IV vancomycin 11/27 SP ABBIE: no evidence for vegetation on any of the valves 11/26/18 SP PPM removal: OR findings:The fibrous capsule enclosing the generator was then opened and there was a [id number] amount of yellowish fluid drainage. The generator was then removed.Atrial and ventricular leads were detached. The necrotic tissue of the pocket was then removed and the pocket was flushed with an antibiotic solution. Capsule, wound tissue and lead tip cx: Neg 2d echo: no vegetation seen US chest: 4.6 x 3.4 x 0.9 cm hypoechoic/anechoic area overlying left chest pacemaker power pack. This could represent either a discrete fluid collection or a focal area of very edematous tissue. Infected fluid pocket also possible. 11/18 Bcx 3/4 S. epi; 11/20 Bcx neg; 11/24 Bcx Neg; 11/27 Bcx Neg CAD s/p CABG GERD/gastritis Afib HTN Dysphagia sp GT Aortic dissection s/p repair 2017 S/p PPM Parkinson's Disease Schizophrenia Anxiety COPD Chronic resp failure s/p trach Hx of tracheal bleeding [place] resident ([facility]) VRE and MRSA colonized Plan: Cont inhaled tobramycin #3 given MDR PsA in resp cx Cont meropenem #8 Stop vanco #10 given CONS/GPC bacteremia Micro lab to perform sensi on MDR PsA from resp cx on Avycaz and Zerbaxa F/u L thora cx 01/21, NTD Trend WBC Trend resp status, secretions 01/16 SP Zosyn #2 01/14 SP dex 10mg in ED 12/10 SP IV Gentamycin #10 12/07 SP Meropenem #10 12/01 SP IV Vancomycin #5 11/28 Sp Cefepime #2 and IV Gentamycin x1 Monitor CBC/CMP Monitor temp curve, hemodynamics Monitor resp status D/w RN Thank you for this consult. [facility] will continue to follow. Subjective Allergies: Coded Allergies: No Known Allergies (Unverified , 10/10/17) AF WBC 14, improving NAD on vent, Fi02 60%, PEEP 5 Objective Last 24 Hour Vital Signs Date Time Temp Pulse Resp B/P (MAP) Pulse Ox O2 Delivery O2 Flow Rate FiO2 01/24/20 08:01 71 155/76 01/24/20 08:00 155/76 01/24/20 07:17 74 24 85 01/24/20 06:59 82 18 146/74 100 01/24/20 06:29 80 20 151/78 100 01/24/20 04:00 97.6 80 20 158/78 (104) 100 01/24/20 04:00 40 01/24/20 03:45 81 01/24/20 03:23 78 23 85 01/24/20 00:00 97.9 67 20 141/66 (91) 100 01/24/20 00:00 40 01/23/20 23:46 68 01/23/20 22:40 75 18 138/63 100 01/23/20 22:13 74 21 100 Mechanical Ventilator 85 72 22 85 01/23/20 22:10 78 18 138/75 100 01/23/20 20:34 76 150/83 01/23/20 20:00 98.4 76 20 150/83 (105) 100 01/23/20 20:00 Mechanical Ventilator Mechanical Ventilator 01/23/20 20:00 40 01/23/20 19:34 74 01/23/20 19:22 78 27 60 01/23/20 17:08 85 148/99 01/23/20 16:00 40 01/23/20 16:00 99.7 85 20 148/99 (115) 100 01/23/20 16:00 Mechanical Ventilator Mechanical Ventilator 01/23/20 15:28 84 01/23/20 15:15 84 30 75 01/23/20 13:37 162/93 01/23/20 12:00 Mechanical Ventilator Mechanical Ventilator 01/23/20 12:00 98.2 80 20 145/87 (106) 100 01/23/20 12:00 40 01/23/20 11:41 81 01/23/20 11:22 80 24 100 Mechanical Ventilator 85 82 24 85 Height (Feet): 5 Height (Inches): 6.00 Weight (Pounds): 150 Gen: NAD HEENT: NCAT, +trach CV: RRR Pulm: CTAB on vent Abd: Non-distended, +PEG Ext: No c/c/e Skin: No visible rashes Neuro: Awake, minimally interactive Lines: L fem HD cath Microbiology Date/Time Source Procedure Growth Status 01/22/20 14:43 Thoracic Fluid Gram Stain - Final Resulted 01/22/20 14:43 Thoracic Fluid Body Fluid Culture - Preliminary NO GROWTH Resulted Laboratory Tests Test 01/23/20 13:07 01/23/20 17:39 01/23/20 23:18 01/24/20 02:55 POC Whole Blood Glucose 88 MG/DL (74-106) 91 MG/DL (74-106) 95 MG/DL (74-106) White Blood Count 14.0 K/UL (4.8-10.8) H Red Blood Count 2.52 M/UL (4.20-5.40) L Hemoglobin 7.1 G/DL (12.0-16.0) L Hematocrit 21.4 % (37.0-47.0) L Mean Corpuscular Volume 85 FL (80-99) Mean Corpuscular Hemoglobin 28.2 PG (27.0-31.0) Mean Corpuscular Hemoglobin Concent 33.3 G/DL (32.0-36.0) Red Cell Distribution Width 15.4 % (11.6-14.8) H Platelet Count 184 K/UL (150-450) Mean Platelet Volume 6.3 FL (6.5-10.1) L Neutrophils (%) (Auto) % (45.0-75.0) Lymphocytes (%) (Auto) % (20.0-45.0) Monocytes (%) (Auto) % (1.0-10.0) Eosinophils (%) (Auto) % (0.0-3.0) Basophils (%) (Auto) % (0.0-2.0) Sodium Level 141 MMOL/L (136-145) Potassium Level 4.1 MMOL/L (3.5-5.1) Chloride Level 104 MMOL/L (98-107) Carbon Dioxide Level 23 MMOL/L (21-32) Anion Gap 14 mmol/L (5-15) Blood Urea Nitrogen 80 mg/dL (7-18) H Creatinine 3.0 MG/DL (0.55-1.30) H Estimat Glomerular Filtration Rate 16.7 mL/min (>60) Glucose Level 89 MG/DL (74-106) Calcium Level 8.2 MG/DL (8.5-10.1) L Random Vancomycin Level 14.9 ug/mL Test 01/24/20 06:06 POC Whole Blood Glucose 91 MG/DL (74-106) Current Medications Medications (Trade) Dose Ordered Sig/Penny Route PRN Reason Start Time Stop Time Status Last Admin Dose Admin Acetaminophen (Tylenol) 500 mg Q6H PRN GT FEVER 01/21/20 20:45 02/20/20 20:44 01/21/20 20:59 Amlodipine Besylate (Norvasc) 5 mg BID GT 01/22/20 18:00 02/20/20 15:44 01/23/20 17:08 Aspirin (ASA) 81 mg DAILY GT 01/20/20 09:00 03/05/20 08:59 01/22/20 09:13 Atorvastatin Calcium (Lipitor) 10 mg BEDTIME GT 01/17/20 21:00 04/16/20 20:59 01/23/20 20:34 Chlorhexidine Gluconate (Ling-Hex 2%) 1 applic DAILY@2000 TOPIC 01/17/20 20:00 04/16/20 19:59 01/23/20 20:33 Dextrose (Dextrose 50%) 25 ml Q30M PRN IV Hypoglycemia 01/15/20 22:15 04/14/20 22:14 Dextrose (Dextrose 50%) 50 ml Q30M PRN IV Hypoglycemia 01/15/20 22:15 04/14/20 22:14 01/22/20 17:54 Isosorbide Dinitrate (Isordil) 10 mg TID GT 01/20/20 09:00 02/19/20 08:59 01/24/20 08:00 Lansoprazole (Prevacid) 30 mg BID GT 01/19/20 18:00 02/18/20 17:59 01/24/20 08:01 Lorazepam (Ativan 2mg/ml 1ml) 0.5 mg EVERY 8 HOURS IV 01/23/20 22:00 01/30/20 21:59 01/24/20 06:29 Meropenem 500 mg/ Sodium Chloride 55 ml @ 110 mls/hr Q24H IVPB 01/22/20 10:30 01/27/20 10:29 01/23/20 13:36 Metoclopramide HCl (Reglan) 5 mg Q6H PRN IVP Nausea & Vomiting 01/15/20 22:15 02/14/20 22:14 Metoprolol Tartrate (Lopressor) 25 mg Q12HR ORAL 01/23/20 09:00 04/22/20 08:59 01/24/20 08:01 Tobramycin Sulfate (Nebcin) 300 mg Q12HRT INH 01/23/20 22:00 01/29/20 09:59 01/23/20 22:13 Vancomycin HCl (Vanco pharmacy to dose) 1 ea DAILY PRN MISC Per rx protocol 01/15/20 22:15 02/14/20 22:14 Vancomycin HCl 1 gm/Dextrose 275 ml @ 183.708 mls/hr ONCE ONCE IVPB 01/24/20 09:00 01/24/20 10:29 01/24/20 08:01 Zinc Oxide (Zinc Oxide) 1 applic TIDPRN PRN TOPIC diogenes GT 01/16/20 13:15 04/15/20 13:14 01/16/20 14:55 Ro Pack M.D. Jan 24, 2020 08:51
[2020-01-24] MEDS ORDERED: Vancomycin 1gm/D5W 275ml IVPB ONE ×2 (09:00)
[2020-01-24] MEDS: Meropenem 500 MG in NS 55 ML IVPB SCH (09:40)
--- NOTE | 2020-01-24 10:39 | General Progress Note ---
Subjective ROS Limited/Unobtainable: No Allergies: Coded Allergies: No Known Allergies (Unverified , 10/10/17) Objective Last 24 Hour Vital Signs Date Time Temp Pulse Resp B/P (MAP) Pulse Ox O2 Delivery O2 Flow Rate FiO2 01/24/20 09:42 73 141/64 01/24/20 08:01 71 155/76 01/24/20 08:00 97.8 72 20 155/76 (102) 100 01/24/20 08:00 82 01/24/20 08:00 155/76 01/24/20 08:00 40 01/24/20 07:17 74 24 85 01/24/20 06:59 82 18 146/74 100 01/24/20 06:29 80 20 151/78 100 01/24/20 04:00 97.6 80 20 158/78 (104) 100 01/24/20 04:00 40 01/24/20 03:45 81 01/24/20 03:23 78 23 85 01/24/20 00:00 97.9 67 20 141/66 (91) 100 01/24/20 00:00 40 01/23/20 23:46 68 01/23/20 22:40 75 18 138/63 100 01/23/20 22:13 74 21 100 Mechanical Ventilator 85 72 22 85 01/23/20 22:10 78 18 138/75 100 01/23/20 20:34 76 150/83 01/23/20 20:00 98.4 76 20 150/83 (105) 100 01/23/20 20:00 Mechanical Ventilator Mechanical Ventilator 01/23/20 20:00 40 01/23/20 19:34 74 01/23/20 19:22 78 27 60 01/23/20 17:08 85 148/99 01/23/20 16:00 40 01/23/20 16:00 99.7 85 20 148/99 (115) 100 01/23/20 16:00 Mechanical Ventilator Mechanical Ventilator 01/23/20 15:28 84 01/23/20 15:15 84 30 75 01/23/20 13:37 162/93 01/23/20 12:00 Mechanical Ventilator Mechanical Ventilator 01/23/20 12:00 98.2 80 20 145/87 (106) 100 01/23/20 12:00 40 01/23/20 11:41 81 01/23/20 11:22 80 24 100 Mechanical Ventilator 85 82 24 85 Intake and Output 01/23/20 01/24/20 19:00 07:00 Intake Total 685 ml 450 ml Output Total 2200 ml 250 ml Balance -1515 ml 200 ml Free Water 300 ml 30 ml Tube Feeding 385 ml 420 ml Output Urine Total 200 ml 250 ml Hemodialysis UF 2000 ml Laboratory Tests 01/23/20 13:07: POC Whole Blood Glucose 88 01/23/20 17:39: POC Whole Blood Glucose 91 01/23/20 23:18: POC Whole Blood Glucose 95 01/24/20 02:55: White Blood Count 14.0H, Red Blood Count 2.52L, Hemoglobin 7.1L, Hematocrit 21.4L, Mean Corpuscular Volume 85, Mean Corpuscular Hemoglobin 28.2, Mean Corpuscular Hemoglobin Concent 33.3, Red Cell Distribution Width 15.4H, Platelet Count 184, Mean Platelet Volume 6.3L, Neutrophils (%) (Auto) , Lymphocytes (%) (Auto) , Monocytes (%) (Auto) , Eosinophils (%) (Auto) , Basophils (%) (Auto) , Sodium Level 141, Potassium Level 4.1, Chloride Level 104, Carbon Dioxide Level 23, Anion Gap 14, Blood Urea Nitrogen 80H, Creatinine 3.0H, Estimat Glomerular Filtration Rate 16.7, Glucose Level 89, Calcium Level 8.2L, Random Vancomycin Level 14.9 01/24/20 06:06: POC Whole Blood Glucose 91 01/24/20 10:14: Arterial Blood pH 7.461H, Arterial Blood Partial Pressure CO2 30.5L, Arterial Blood Partial Pressure O2 123.0H, Arterial Blood HCO3 21.3L, Arterial Blood Oxygen Saturation 98.0, Arterial Blood Base Excess -2.2L, Rojas Test Positive Height (Feet): 5 Height (Inches): 6.00 Weight (Pounds): 150 General Appearance: no apparent distress EENT: normal ENT inspection Neck: supple Cardiovascular: normal rate Respiratory/Chest: decreased breath sounds Abdomen: normal bowel sounds, non tender, soft Extremities: non-tender Assessment/Plan Problem List: (1) Hx of CABG ICD Codes: Z95.1 - Presence of aortocoronary bypass graft SNOMED: 389354433, 068378180 (2) History of tracheostomy ICD Codes: Z98.890 - Other specified postprocedural states SNOMED: 579356686, 976892328 (3) PEG (percutaneous endoscopic gastrostomy) status ICD Codes: Z93.1 - Gastrostomy status SNOMED: 558619532, 571717252 (4) S/P aortic dissection repair ICD Codes: Z98.890 - Other specified postprocedural states SNOMED: 050909244, 596129538 (5) Renal failure ICD Codes: N19 - Unspecified kidney failure SNOMED: 43526295, 081743530 (6) Anemia ICD Codes: D64.9 - Anemia, unspecified SNOMED: 690738688 Assessment/Plan: not stable for GI procedures ppi blood transfusion fu labs EGD when more stable GT topical care low dose GTF tolerated fu nephrology HD per nephrology repeat amylase and lipase plan one unit of PRBC Inder Mccauley MD Jan 24, 2020 10:39
[2020-01-24] MEDS: Tobramycin for inhalation INH SCH ×2 (10:40→23:33)
--- NOTE | 2020-01-24 10:40 | NUR ---
NURSE NOTES: per DR. Mccauley to order 1Unit of prbc for patient now.- will carry out orders.
[2020-01-24] MEDS ORDERED: Omnipaque-300 100ml vial INJ PRN (10:45)
--- NOTE | 2020-01-24 10:47 | NUR ---
NURSE NOTES: notified Eileen at blood bank regarding 1unit prbc ordered by doctor- will notify me when ready.
--- NOTE | 2020-01-24 10:55 | NUR ---
RD ASSESSMENT & RECOMMENDATIONS SEE CARE ACTIVITY FOR COMPLETE ASSESSMENT DAILY ESTIMATED NEEDS: Needs based on Critical care, wound, renal dysfunction 56 kg abw 28-33 kcals/kg 7299-0831 total kcals W/ HD (1.5-2.0) g protein/kg 84-112 g total protein Fluid per MD NUTRITION DIAGNOSIS: * Swallowing difficulty R/T dysphagia, respiratory status as evidenced by vent dep via trach, GT Dep. * Increase kcal and pro needs r/t wound healing, renal dysfunction as evidenced by admitted w/ large, advanced sacral wound, previously stage 4, pending eval, admitted w/ JAVIER, pending HD. CURRENT TF: Nepro @35ml/hr ENTERAL NUTRITION RECOMMENDATIONS: Nepro @ 40ml/hr x 24 hrs + Prosource 1pkt QD to provide 960ml, 1728kcal, 78g+11g prot, 698ml free water * As medically appropriate, increase Nepro to goal rate of 40ml/hr x 24 hrs * Add Prosource 1pkt QD to better meet increased protein needs (additional 11g prot) * Water flush per MD/ HOB over 30 degrees ADDITIONAL RECOMMENDATIONS: * Per SNF in NOV 2019: HT=63"/ Rec daily calibrated bedscale wt * Monitor for continuity of HD: last HD 01/19 * Monitor lytes and renal fxn for improvement. * Wound care: add Nephrovite x 1, ZnSO4 220mg QD x 10 days Reynaldo BID via PEG (mix w/ 2-4 oz water); vit C per nephro * Monitor BG closely for hypoglycemia while NPO .
--- NOTE | 2020-01-24 11:22 | Nephrology Progress Note ---
Assessment/Plan Problem List: (1) ARF (acute renal failure) (2) Pacemaker (3) Sepsis (4) Hyponatremia Assessment (1) JAVIER (acute kidney injury) (2) Renal failure (ARF), acute on chronic (3) Feeding by G-tube (4) Tracheostomy in place (5) Electrolyte imbalance, hyponatremia (6) Anemia, severe (7) Respiratory failure, acute and chronic (8) Elevated lipase, pancreatitis (9) Elevated troponin I (10) Sepsis Plan January 23: Dialyzed yesterday. Today's labs reviewed. Continue to monitor renal parameters and arrange for dialysis as needed. Continue per PMD. January 22: Seen earlier during dialysis. Labs reviewed. Medication list reviewed. Continue current management. January 21: Labs reviewed. Medication list reviewed. Next hemodialysis tomorrow. Blood pressure medication adjusted. January 20: Dialyzed yesterday. Labs reviewed. Continue per current management. Dialysis as needed. Add Norvasc to blood pressure regimen January 19: Due for dialysis today. Labs reviewed. Continue her current management. Continue to monitor renal parameters and electrolytes. January 18: Dialyzed yesterday. Labs reviewed. Renal parameters electrolytes much improved. Dialysis again tomorrow. Continue rest. January 17: Dialyzed this morning. Labs reviewed. Renal parameters and electrolyte abnormalities improved. Discussed with RN. Continue per consultants. January 16: Dialyzed yesterday. Labs improved. Next dialysis tomorrow. Continue per consultants. January 15: Patient to have dialysis catheter. Emergency dialysis for correction of uremia and electrolyte imbalances Antibiotics Transfusion Continue to monitor renal parameters Per orders Discussed with RN Subjective ROS Limited/Unobtainable: Yes Objective Objective Last 24 Hour Vital Signs Date Time Temp Pulse Resp B/P (MAP) Pulse Ox O2 Delivery O2 Flow Rate FiO2 01/24/20 10:40 69 24 100 Mechanical Ventilator 60 69 18 60 01/24/20 09:42 73 141/64 01/24/20 08:01 71 155/76 01/24/20 08:00 97.8 72 20 155/76 (102) 100 01/24/20 08:00 82 01/24/20 08:00 155/76 01/24/20 08:00 40 01/24/20 07:17 74 24 85 01/24/20 06:59 82 18 146/74 100 01/24/20 06:29 80 20 151/78 100 01/24/20 04:00 97.6 80 20 158/78 (104) 100 01/24/20 04:00 40 01/24/20 03:45 81 01/24/20 03:23 78 23 85 01/24/20 00:00 97.9 67 20 141/66 (91) 100 01/24/20 00:00 40 01/23/20 23:46 68 01/23/20 22:40 75 18 138/63 100 01/23/20 22:13 74 21 100 Mechanical Ventilator 85 72 22 85 01/23/20 22:10 78 18 138/75 100 01/23/20 20:34 76 150/83 01/23/20 20:00 98.4 76 20 150/83 (105) 100 01/23/20 20:00 Mechanical Ventilator Mechanical Ventilator 01/23/20 20:00 40 01/23/20 19:34 74 01/23/20 19:22 78 27 60 01/23/20 17:08 85 148/99 01/23/20 16:00 40 01/23/20 16:00 99.7 85 20 148/99 (115) 100 01/23/20 16:00 Mechanical Ventilator Mechanical Ventilator 01/23/20 15:28 84 01/23/20 15:15 84 30 75 01/23/20 13:37 162/93 01/23/20 12:00 Mechanical Ventilator Mechanical Ventilator 01/23/20 12:00 98.2 80 20 145/87 (106) 100 01/23/20 12:00 40 01/23/20 11:41 81 01/23/20 11:22 80 24 100 Mechanical Ventilator 85 82 24 85 Intake and Output 01/23/20 01/24/20 19:00 07:00 Intake Total 685 ml 450 ml Output Total 2200 ml 250 ml Balance -1515 ml 200 ml Free Water 300 ml 30 ml Tube Feeding 385 ml 420 ml Output Urine Total 200 ml 250 ml Hemodialysis UF 2000 ml Laboratory Tests 01/23/20 13:07: POC Whole Blood Glucose 88 01/23/20 17:39: POC Whole Blood Glucose 91 01/23/20 23:18: POC Whole Blood Glucose 95 01/24/20 02:55: White Blood Count 14.0H, Red Blood Count 2.52L, Hemoglobin 7.1L, Hematocrit 21.4L, Mean Corpuscular Volume 85, Mean Corpuscular Hemoglobin 28.2, Mean Corpuscular Hemoglobin Concent 33.3, Red Cell Distribution Width 15.4H, Platelet Count 184, Mean Platelet Volume 6.3L, Neutrophils (%) (Auto) , Lymphocytes (%) (Auto) , Monocytes (%) (Auto) , Eosinophils (%) (Auto) , Basophils (%) (Auto) , Sodium Level 141, Potassium Level 4.1, Chloride Level 104, Carbon Dioxide Level 23, Anion Gap 14, Blood Urea Nitrogen 80H, Creatinine 3.0H, Estimat Glomerular Filtration Rate 16.7, Glucose Level 89, Calcium Level 8.2L, Random Vancomycin Level 14.9 01/24/20 06:06: POC Whole Blood Glucose 91 01/24/20 10:14: Arterial Blood pH 7.461H, Arterial Blood Partial Pressure CO2 30.5L, Arterial Bl ood Partial Pressure O2 123.0H, Arterial Blood HCO3 21.3L, Arterial Blood Oxygen Saturation 98.0, Arterial Blood Base Excess -2.2L, Rojas Test Positive Height (Feet): 5 Height (Inches): 6.00 Weight (Pounds): 150 General Appearance: no apparent distress EENT: other - Trach to vent Cardiovascular: normal rate - on board Respiratory/Chest: decreased breath sounds Abdomen: distended Johnny Houston MD Jan 24, 2020 11:22
[2020-01-24 12:00] VITALS: BP 149/68
--- NOTE | 2020-01-24 12:00 | NUR ---
NURSE NOTES: 2nd bed bath given linens changed, oral care provided, repositioned and turned pt- pt. appears to be tolerating current vent settings- will continue to monitor pt. and with plan of care.
--- NOTE | 2020-01-24 13:36 | NUR ---
NURSE NOTES: pre-transfusion vital signs taken-b/p 142/67, pulse 70, oxygen 100%,temp 97.1- pt. remains stable will continue to monitor pt. and with plan of care.
--- NOTE | 2020-01-24 13:50 | NUR ---
NURSE NOTES: transfusion vital signs taken 15 minutes after start of transfusion-pt. remains stable-no reaction noted-B/P 149/64, pulse 72, respirations 20, temp 97.0, pulse ox 100%-will continue to monitor pt. and with plan of care.
--- NOTE | 2020-01-24 13:54 | NUR ---
CASE MANAGEMENT:REVIEW SI: SEPSIS. RENAL FAILURE TRACH/VENT 97.5 76 20 149/68 100% ON VENT SUPPORT W/40% FIO2 WBC+14.0 H/H-7.1/21.4 BUN+80 CR+3.0 IS: TRANSFUSE PRBC'S IV MEROPENEM Q24 TOBRAMYCIN INH Q12 NORVASC GT BID LOPRESSOR GT Q12 ISORDIL GT TID ASA GT QD PREVACID GT BID : STEP DOWN UNIT DCP: FROM [facility] PLAN:
--- NOTE | 2020-01-24 14:15 | Pulmonology Progress Note ---
Subjective ROS Limited/Unobtainable: Yes Interval Events: Doing well; Constitutional: Reports: no symptoms HEENT: Repors: no symptoms Respiratory: Reports: no symptoms Cardiovascular: Reports: no symptoms Gastrointestinal/Abdominal: Reports: no symptoms Allergies: Coded Allergies: No Known Allergies (Unverified , 10/10/17) All Systems: reviewed and negative except above Objective Last 24 Hour Vital Signs Date Time Temp Pulse Resp B/P (MAP) Pulse Ox O2 Delivery O2 Flow Rate FiO2 01/24/20 13:44 72 20 142/67 100 01/24/20 12:39 153/71 01/24/20 12:00 97.5 76 20 149/68 (95) 100 01/24/20 12:00 Mechanical Ventilator Mechanical Ventilator 01/24/20 12:00 40 01/24/20 11:40 69 01/24/20 10:40 69 24 100 Mechanical Ventilator 60 69 18 60 01/24/20 09:42 73 141/64 01/24/20 08:01 71 155/76 01/24/20 08:00 Mechanical Ventilator Mechanical Ventilator 01/24/20 08:00 97.8 72 20 155/76 (102) 100 01/24/20 08:00 82 01/24/20 08:00 155/76 01/24/20 08:00 40 01/24/20 07:17 74 24 85 01/24/20 06:59 82 18 146/74 100 01/24/20 06:29 80 20 151/78 100 01/24/20 04:00 97.6 80 20 158/78 (104) 100 01/24/20 04:00 40 01/24/20 03:45 81 01/24/20 03:23 78 23 85 01/24/20 00:00 97.9 67 20 141/66 (91) 100 01/24/20 00:00 40 01/23/20 23:46 68 01/23/20 22:40 75 18 138/63 100 01/23/20 22:13 74 21 100 Mechanical Ventilator 85 72 22 85 01/23/20 22:10 78 18 138/75 100 01/23/20 20:34 76 150/83 01/23/20 20:00 98.4 76 20 150/83 (105) 100 01/23/20 20:00 Mechanical Ventilator Mechanical Ventilator 12/10/20 20:00 40 01/23/20 19:34 74 01/23/20 19:22 78 27 60 01/23/20 17:08 85 148/99 01/23/20 16:00 40 01/23/20 16:00 99.7 85 20 148/99 (115) 100 01/23/20 16:00 Mechanical Ventilator Mechanical Ventilator 01/23/20 15:28 84 01/23/20 15:15 84 30 75 Intake and Output 01/23/20 01/24/20 19:00 07:00 Intake Total 685 ml 450 ml Output Total 2200 ml 250 ml Balance -1515 ml 200 ml Free Water 300 ml 30 ml Tube Feeding 385 ml 420 ml Output Urine Total 200 ml 250 ml Hemodialysis UF 2000 ml Objective 01/21/2020 trach site clean, no leakage noted; currently saturating 98% with AC 14, TV 500 FiO2 50%, PEEP 5. 01/20/2020 tracheostomy site clean, vent dependent patient, no leakage noted General Appearance: no acute distress HEENT: normocephalic, other - trach Respiratory: chest wall non-tender, other - coarse lung sounds Cardiovascular: normal rate, regular rhythm Abdomen: soft, non tender Genitourinary: other - Norman Extremities: other - trace edema Microbiology Date/Time Source Procedure Growth Status 01/22/20 14:43 Thoracic Fluid Gram Stain - Final Resulted 01/22/20 14:43 Thoracic Fluid Body Fluid Culture - Preliminary NO GROWTH AFTER 24 HOURS Resulted Laboratory Tests 01/23/20 17:39: POC Whole Blood Glucose 91 01/23/20 23:18: POC Whole Blood Glucose 95 01/24/20 02:55: White Blood Count 14.0H, Red Blood Count 2.52L, Hemoglobin 7.1L, Hematocrit 21.4L, Mean Corpuscular Volume 85, Mean Corpuscular Hemoglobin 28.2, Mean Corpuscular Hemoglobin Concent 33.3, Red Cell Distribution Width 15.4H, Platelet Count 184, Mean Platelet Volume 6.3L, Neutrophils (%) (Auto) , Lymphocytes (%) (Auto) , Monocytes (%) (Auto) , Eosinophils (%) (Auto) , Basophils (%) (Auto) , Sodium Level 141, Potassium Level 4.1, Chloride Level 104, Carbon Dioxide Level 23, Anion Gap 14, Blood Urea Nitrogen 80H, Creatinine 3.0H, Estimat Glomerular Filtration Rate 16.7, Glucose Level 89, Calcium Level 8.2L, Random Vancomycin Level 14.9 01/24/20 06:06: POC Whole Blood Glucose 91 01/24/20 10:14: Arterial Blood pH 7.461H, Arterial Blood Partial Pressure CO2 30.5L, Arterial Blood Partial Pressure O2 123.0H, Arterial Blood HCO3 21.3L, Arterial Blood Oxygen Saturation 98.0, Arterial Blood Base Excess -2.2L, Rojas Test Positive 01/24/20 12:34: POC Whole Blood Glucose [Pending] Current Medications Medications (Trade) Dose Ordered Sig/Penny Route PRN Reason Start Time Stop Time Status Last Admin Dose Admin Acetaminophen (Tylenol) 500 mg Q6H PRN GT FEVER 01/21/20 20:45 02/20/20 20:44 01/21/20 20:59 Amlodipine Besylate (Norvasc) 5 mg BID GT 01/22/20 18:00 02/20/20 15:44 01/24/20 09:42 Aspirin (ASA) 81 mg DAILY GT 01/20/20 09:00 03/05/20 08:59 01/22/20 09:13 Atorvastatin Calcium (Lipitor) 10 mg BEDTIME GT 01/17/20 21:00 04/16/20 20:59 01/23/20 20:34 Barium Sulfate (Readi-Cat 2) 450 ml NOW PRN ORAL Radiology Procedure 01/24/20 10:45 01/26/20 10:44 Chlorhexidine Gluconate (Ling-Hex 2%) 1 applic DAILY@2000 TOPIC 01/17/20 20:00 04/16/20 19:59 01/23/20 20:33 Dextrose (Dextrose 50%) 25 ml Q30M PRN IV Hypoglycemia 01/15/20 22:15 04/14/20 22:14 Dextrose (Dextrose 50%) 50 ml Q30M PRN IV Hypoglycemia 01/15/20 22:15 04/14/20 22:14 01/22/20 17:54 Iohexol (OMNIPAQUE-300 100ml) 100 ml NOW PRN INJ Radiology Procedure 01/24/20 10:45 01/26/20 10:44 Isosorbide Dinitrate (Isordil) 10 mg TID GT 01/20/20 09:00 02/19/20 08:59 01/24/20 12:39 Lansoprazole (Prevacid) 30 mg BID GT 01/19/20 18:00 02/18/20 17:59 01/24/20 08:01 Lorazepam (Ativan 2mg/ml 1ml) 0.5 mg EVERY 8 HOURS IV 01/23/20 22:00 01/30/20 21:59 01/24/20 13:44 Meropenem 500 mg/ Sodium Chloride 55 ml @ 110 mls/hr Q24H IVPB 01/22/20 10:30 01/27/20 10:29 01/24/20 09:40 Metoclopramide HCl (Reglan) 5 mg Q6H PRN IVP Nausea & Vomiting 01/15/20 22:15 02/14/20 22:14 Metoprolol Tartrate (Lopressor) 25 mg Q12HR ORAL 01/23/20 09:00 04/22/20 08:59 01/24/20 08:01 Tobramycin Sulfate (Nebcin) 300 mg Q12HRT INH 01/23/20 22:00 01/29/20 09:59 01/24/20 10:40 Zinc Oxide (Zinc Oxide) 1 applic TIDPRN PRN TOPIC diogenes GT 01/16/20 13:15 04/15/20 13:14 01/16/20 14:55 Assessment/Plan Assessment/Plan 1. Large left effusion. - S/p thoracentesis; CXR better 2. Chronic respiratory failure. - on trach, current setting: AC 14, VT 500, FiO2 50%, PEEP 5 - Cont AC mode - Currently saturating at 98% 3. Sepsis. - WBC 26.3 -> 20.5 -> 14.0 4. Anemia - Hgb 7 -> 9 -> 8.6 -> 7.1 - s/p transfusion s/p HD Broad-spectrum antibiotics. Pulmonary hygiene. DVT and GI prophylaxes. We will follow carefully. The care for this patient was discussed with my supervising physician TIme spent for this case was approximately 31 minutes Cruz Wilson Jan 24, 2020 14:15
--- NOTE | 2020-01-24 15:45 | NUR ---
NURSE NOTES: post transfusion vital signs taken- b/p 147/70, pulse 78, respirations 20, pulse ox 100%, temp 97.5- pt. appears to have tolerated 1 unit of PRBC well- no allergic reaction noted- will continue to monitor pt. and with plan of care.
[2020-01-24 16:00] VITALS: BP 147/70
--- NOTE | 2020-01-24 16:31 | Surgery Progress Note ---
Surgery Progress Note Subjective Procedure Performed Left femoral temporary hemodialysis catheter insertion Additional Comments no acute events looks more comfortable no n/v/f/c labs noted Objective Last 24 Hour Vital Signs Date Time Temp Pulse Resp B/P (MAP) Pulse Ox O2 Delivery O2 Flow Rate FiO2 01/24/20 16:00 Mechanical Ventilator Mechanical Ventilator 01/24/20 16:00 97.9 73 22 147/70 (95) 100 01/24/20 16:00 40 01/24/20 15:16 72 01/24/20 14:14 70 20 139/63 100 01/24/20 13:44 72 20 142/67 100 01/24/20 12:39 153/71 01/24/20 12:00 97.5 76 20 149/68 (95) 100 01/24/20 12:00 Mechanical Ventilator Mechanical Ventilator 01/24/20 12:00 40 01/24/20 11:40 69 01/24/20 10:40 69 24 100 Mechanical Ventilator 60 69 18 60 01/24/20 09:42 73 141/64 01/24/20 08:01 71 155/76 01/24/20 08:00 Mechanical Ventilator Mechanical Ventilator 01/24/20 08:00 97.8 72 20 155/76 (102) 100 01/24/20 08:00 82 01/24/20 08:00 155/76 01/24/20 08:00 40 01/24/20 07:17 74 24 85 01/24/20 06:59 82 18 146/74 100 01/24/20 06:29 80 20 151/78 100 01/24/20 04:00 97.6 80 20 158/78 (104) 100 01/24/20 04:00 40 01/24/20 03:45 81 01/24/20 03:23 78 23 85 01/24/20 00:00 97.9 67 20 141/66 (91) 100 01/24/20 00:00 40 01/23/20 23:46 68 01/23/20 22:40 75 18 138/63 100 01/23/20 22:13 74 21 100 Mechanical Ventilator 85 72 22 85 01/23/20 22:10 78 18 138/75 100 01/23/20 20:34 76 150/83 01/23/20 20:00 98.4 76 20 150/83 (105) 100 01/23/20 20:00 Mechanical Ventilator Mechanical Ventilator 01/23/20 20:00 40 01/23/20 19:34 74 01/23/20 19:22 78 27 60 01/23/20 17:08 85 148/99 I&O Intake and Output0 01/23/20 01/24/20 19:00 07:00 Intake Total 685 ml 450 ml Output Total 2200 ml 250 ml Balance -1515 ml 200 ml Free Water 300 ml 30 ml Tube Feeding 385 ml 420 ml Output Urine Total 200 ml 250 ml Hemodialysis UF 2000 ml Dressing: saturated Cardiovascular: RSR Respiratory: decreased breath sounds Abdomen: non-tender, present bowel sounds, non-distended Extremities: no edema, no tenderness, no cyanosis Laboratory Tests Test 01/23/20 17:39 01/23/20 23:18 01/24/20 02:55 01/24/20 06:06 POC Whole Blood Glucose 91 MG/DL (74-106) 95 MG/DL (74-106) 91 MG/DL (74-106) White Blood Count 14.0 K/UL (4.8-10.8) H Red Blood Count 2.52 M/UL (4.20-5.40) L Hemoglobin 7.1 G/DL (12.0-16.0) L Hematocrit 21.4 % (37.0-47.0) L Mean Corpuscular Volume 85 FL (80-99) Mean Corpuscular Hemoglobin 28.2 PG (27.0-31.0) Mean Corpuscular Hemoglobin Concent 33.3 G/DL (32.0-36.0) Red Cell Distribution Width 15.4 % (11.6-14.8) H Platelet Count 184 K/UL (150-450) Mean Platelet Volume 6.3 FL (6.5-10.1) L Neutrophils (%) (Auto) % (45.0-75.0) Lymphocytes (%) (Auto) % (20.0-45.0) Monocytes (%) (Auto) % (1.0-10.0) Eosinophils (%) (Auto) % (0.0-3.0) Basophils (%) (Auto) % (0.0-2.0) Sodium Level 141 MMOL/L (136-145) Potassium Level 4.1 MMOL/L (3.5-5.1) Chloride Level 104 MMOL/L (98-107) Carbon Dioxide Level 23 MMOL/L (21-32) Anion Gap 14 mmol/L (5-15) Blood Urea Nitrogen 80 mg/dL (7-18) H Creatinine 3.0 MG/DL (0.55-1.30) H Estimat Glomerular Filtration Rate 16.7 mL/min (>60) Glucose Level 89 MG/DL (74-106) Calcium Level 8.2 MG/DL (8.5-10.1) L Random Vancomycin Level 14.9 ug/mL Test 01/24/20 10:14 01/24/20 12:34 Arterial Blood pH 7.461 (7.350-7.450) Arterial Blood Partial Pressure CO2 30.5 mmHg (35.0-45.0) L Arterial Blood Partial Pressure O2 123.0 mmHg (75.0-100.0) H Arterial Blood HCO3 21.3 mmol/L (22.0-26.0) L Arterial Blood Oxygen Saturation 98.0 % (95-100) Arterial Blood Base Excess -2.2 (-2-2) L Rojas Test Positive POC Whole Blood Glucose Pending Plan Problems: (1) Dehydration (2) Acidosis (3) Depression (4) Pleural effusion (5) Respiratory failure (6) Schizophrenia (7) Hypoxia (8) UTI (urinary tract infection) (9) Pneumonia (10) NSTEMI (non-ST elevated myocardial infarction) (11) Tracheostomy in place (12) Feeding by G-tube (13) JAVIER (acute kidney injury) (14) Acute encephalopathy (15) Sacral decubitus ulcer, stage IV (16) Chronic respiratory failure (17) Ascites (18) Bacteremia (19) Hypernatremia (20) Proteinuria (21) Electrolyte imbalance (22) ACS (acute coronary syndrome) (23) Aortic dissection, thoracic (24) Respiratory failure, acute and chronic (25) JAVIER (acute kidney injury) (26) Abrasion of lip, initial encounter (27) COPD with exacerbation (28) Elevated alkaline phosphatase level (29) Renal failure (ARF), acute on chronic (30) HCAP (healthcare-associated pneumonia) (31) GT CLOGGED (32) Elevated lipase (33) Pancreatitis (34) Elevated troponin (35) Hypokalemia (36) Hyponatremia (37) Anemia (38) Renal failure (39) ARF (acute renal failure) (40) Pacemaker (41) Sepsis Assessment & Plan: leukocytosis anemia on HD renal insufficiency wounds addressed pt presented on admission with Tracheostomy ,GT and Multiple Pressure Injuries. Skin assessment of skin under tracheal collar without evidence of skin breakdown. Peristomal GT site excoriated.Moderate amt of dark red sanguineous exudate. Full Thickness Sacral Pressure Injury with undermined borders (L)9 cm x (W)12cm x (D)1.8cm,Undermining clockwise8-9 by 2.2cm @1o'clock,undermining clockwise 1-4 by 1.9 @ 9'oclock Scattered necrotic tissue within wound bed. Borders are loose and necrotic with marginal erythema to outer perimeter of wound. NO elevation in skin temp noted periwound. Wound is malodorous. Small amt Brown exudate noted. Resolving Pressure Injury L Ischium(L)1.5cm x (W)1.5cm. Base of wound is 80% pink epithelial with an area that is moist and pink. NO odor or exudate noted. Bilat foot-drop noted. L Heel is boggy with non-blanchable erythema(L)4cm x (W)4cm. R heel is boggy with non-Blanchable erythema(L)5cm x (W)6cm. Tx.Plan: Cleanse sacral wound with Dakin's 0.125% annie. Loosely pack with Dakin's moistened Kerlix(Attention to undermined borders). Apply Moisture Barrier Paste periwound. Cover with Optifoam drsg. Change Daily and PRN. Apply Cavilon Skin Barrier to R and L Hels. Cover each heel with Optifoam drsg. Change every 7 days and prn. Reposition at least every 2hours or as tolerated. Off-load heels with Pillow. APM/JENNIFER MAttress overlay DAILY ESTIMATED NEEDS: Needs based on Critical care, wound, renal dysfunction 56 kg abw 28-33 kcals/kg [id number] total kcals W/ HD (1.5-2.0) g protein/kg 84-112 g total protein Fluid per MD mL/kg . total fluid mLs NUTRITION DIAGNOSIS: * Swallowing difficulty R/T dysphagia, respiratory status as evidenced by vent dep via trach, GT Dep. * Increase kcal and pro needs r/t wound healing, renal dysfunction as evidenced by admitted w/ large, advanced sacral wound, previously stage 4, pending eval, admitted w/ JAVIER, pending HD. CURRENT TF:NPO ENTERAL NUTRITION RECOMMENDATIONS: Nepro @ 40ml/hr x 24 hrs + Prosource 1pkt QD to provide 960ml, 1728kcal, 78g+11g prot, 698ml free water * As medically appropriate, initiate TF on Nepro, rec goal rate fo 40ml/hr x 24 hrs * Add Prosource 1pkt QD to better meet increased protein needs (additional 11g prot) * Water flush per MD/ HOB over 30 degrees ADDITIONAL RECOMMENDATIONS: * Per SNF in NOV 2019: HT=63"/ Rec daily calibrated bedscale wt * Monitor for continuity of HD: non-tunneled cath placement ordered * Monitor lytes and renal fxn for improvement (Na low, K and phos elevated) * Wound care: add Nephrovite x 1, ZnSO4 220mg QD x 10 days Reynaldo BID via PEG (mix w/ 2-4 oz water) * Monitor BG closely for hypoglycemia while NPO (h/o DM, on Nacl 3% to correct hyponatremia, consider accuchecks) (42) Hyponatremia Lane Saavedra Jan 24, 2020 16:31
--- NOTE | 2020-01-24 16:35 | General Progress Note ---
Subjective Constitutional: Reports: no symptoms HEENT: Reports: no symptoms Cardiovascular: Reports: no symptoms Respiratory: Reports: no symptoms Gastrointestinal/Abdominal: Reports: no symptoms Genitourinary: Reports: no symptoms Neurologic/Psychiatric: Reports: no symptoms Endocrine: Reports: no symptoms Hematologic/Lymphatic: Reports: no symptoms Allergies: Coded Allergies: No Known Allergies (Unverified , 10/10/17) Objective Last 24 Hour Vital Signs Date Time Temp Pulse Resp B/P (MAP) Pulse Ox O2 Delivery O2 Flow Rate FiO2 01/24/20 16:00 Mechanical Ventilator Mechanical Ventilator 01/24/20 16:00 97.9 73 22 147/70 (95) 100 01/24/20 16:00 40 01/24/20 15:16 72 01/24/20 14:14 70 20 139/63 100 01/24/20 13:44 72 20 142/67 100 01/24/20 12:39 153/71 01/24/20 12:00 97.5 76 20 149/68 (95) 100 01/24/20 12:00 Mechanical Ventilator Mechanical Ventilator 01/24/20 12:00 40 01/24/20 11:40 69 01/24/20 10:40 69 24 100 Mechanical Ventilator 60 69 18 60 01/24/20 09:42 73 141/64 01/24/20 08:01 71 155/76 01/24/20 08:00 Mechanical Ventilator Mechanical Ventilator 01/24/20 08:00 97.8 72 20 155/76 (102) 100 01/24/20 08:00 82 01/24/20 08:00 155/76 01/24/20 08:00 40 01/24/20 07:17 74 24 85 01/24/20 06:59 82 18 146/74 100 01/24/20 06:29 80 20 151/78 100 01/24/20 04:00 97.6 80 20 158/78 (104) 100 01/24/20 04:00 40 01/24/20 03:45 81 01/24/20 03:23 78 23 85 01/24/20 00:00 97.9 67 20 141/66 (91) 100 01/24/20 00:00 40 01/23/20 23:46 68 01/23/20 22:40 75 18 138/63 100 01/23/20 22:13 74 21 100 Mechanical Ventilator 85 72 22 85 12/10/20 22:10 78 18 138/75 100 01/23/20 20:34 76 150/83 01/23/20 20:00 98.4 76 20 150/83 (105) 100 01/23/20 20:00 Mechanical Ventilator Mechanical Ventilator 01/23/20 20:00 40 01/23/20 19:34 74 01/23/20 19:22 78 27 60 01/23/20 17:08 85 148/99 Intake and Output 01/23/20 01/24/20 19:00 07:00 Intake Total 685 ml 450 ml Output Total 2200 ml 250 ml Balance -1515 ml 200 ml Free Water 300 ml 30 ml Tube Feeding 385 ml 420 ml Output Urine Total 200 ml 250 ml Hemodialysis UF 2000 ml Laboratory Tests 01/23/20 17:39: POC Whole Blood Glucose 91 01/23/20 23:18: POC Whole Blood Glucose 95 01/24/20 02:55: White Blood Count 14.0H, Red Blood Count 2.52L, Hemoglobin 7.1L, Hematocrit 21.4L, Mean Corpuscular Volume 85, Mean Corpuscular Hemoglobin 28.2, Mean Corpuscular Hemoglobin Concent 33.3, Red Cell Distribution Width 15.4H, Platelet Count 184, Mean Platelet Volume 6.3L, Neutrophils (%) (Auto) , Lymphocytes (%) (Auto) , Monocytes (%) (Auto) , Eosinophils (%) (Auto) , Basophils (%) (Auto) , Sodium Level 141, Potassium Level 4.1, Chloride Level 104, Carbon Dioxide Level 23, Anion Gap 14, Blood Urea Nitrogen 80H, Creatinine 3.0H, Estimat Glomerular Filtration Rate 16.7, Glucose Level 89, Calcium Level 8.2L, Random Vancomycin Level 14.9 01/24/20 06:06: POC Whole Blood Glucose 91 01/24/20 10:14: Arterial Blood pH 7.461H, Arterial Blood Partial Pressure CO2 30.5L, Arterial Blood Partial Pressure O2 123.0H, Arterial Blood HCO3 21.3L, Arterial Blood Oxygen Saturation 98.0, Arterial Blood Base Excess -2.2L, Rojas Test Positive 01/24/20 12:34: POC Whole Blood Glucose [Pending] Height (Feet): 5 Height (Inches): 6.00 Weight (Pounds): 150 General Appearance: WD/WN, no apparent distress, lethargic EENT: normal ENT inspection Neck: non-tender, normal alignment, supple Cardiovascular: normal rate, regular rhythm, regularly irregular, no gallop/murmur, no JVD Respiratory/Chest: lungs clear, no respiratory distress, no accessory muscle use, decreased breath sounds Abdomen: normal bowel sounds, non tender, soft, no organomegaly, no mass Extremities: non-tender Neurologic: alert, responsive, depressed affect, other - Patient has been on lactulose of narcotic analgesic however is admission during the. Between the 2 admission on her narcotic analgesia has been DC'd including the antipsychotic placed on Klonopin 0.5 mg twice daily as needed the weeks prior to the admission she did not need any of the long-acting benzodiazepine and Ativan 0.5 mg every 8 hours IV because of unexplained episodes of crying yourself with unable to explain Skin: warm/dry Assessment/Plan Status Narrative Overall patient condition continued to improve on a daily basis her shortness of breath nearly resolved as well maintain will resolve BC decline from 30-14 she still have an underlying mood disorder the present time requires IV benzodiazepine for is controlled she does have almost compensated congestive heart failure have pleural effusion no tachycardia and no shortness of breath peripheral edema was resolved by dialysis will continue doripenem CBC BMP will be done in a.m. today will be repeated on January 25 Lucas Paul MD, MD Jan 24, 2020 16:35
[2020-01-24] MEDS: Acetaminophen 650mg/20.3ml GT PRN (17:13)
--- NOTE | 2020-01-24 19:22 | NUR ---
NURSE HAND-OFF REPORT: Important Events on Shift:fever- trending down Patient Status: fair Diet: Nephro Pending Orders: Pending Results/Labs: Pending MD notification: Latest Vital Signs: Temperature 99.8 , Pulse 72 , B/P 150 /69 , Respiratory Rate 25 , O2 SAT 100 , Mechanical Ventilator, O2 Flow Rate . Vital Sign Comment: EKG Rhythm: Sinus Rhythm Rhythm change?: N MD Notified?: MD Response: Latest Chavarria Fall Score: 70 Fall Risk: High Risk Safety Measures: Call light Within Reach, Bed Alarm Zone 2, Side Rails Side Rails x2, Bed position Low and Locked. Fall Precautions: Yellow Socks Report given to ERASMO Mancilla.
--- NOTE | 2020-01-24 19:23 | NUR ---
NURSE NOTES: Received report from ERASMO Ruiz. Pt appears obtunded, responsive to verbal/tactile stimuli. PERRLA. Pt saturating 98% on vent settings of AC 14, Vt 500, 40% fiO2, P5. Vitals WNL; afebrile 98.9 axil. 5-lead EKG shows SR. 0 residual on gtube running Nepro at 35 mL. Left IV intact. Left femoral QC stable and intact. Bed kept in lowest and locked position. Bed alarm on; side rails up x3. Will continue monitoring.
[2020-01-24 20:00] VITALS: BP 140/65
[2020-01-24] MEDS: Dyna-Hex 2% Top Sol 2oz TOPIC SCH (21:46)
[2020-01-25] VITALS: BP 143/68
--- NOTE | 2020-01-25 | NUR ---
NURSE NOTES: Dr. Mccauley notifed and aware that pt is unstable to be transported for CT Abdomen. PRN ativan held for decreased HR of 59 bpm. Will monitor.
--- NOTE | 2020-01-25 00:16 | Cardiology Progress Note ---
Subjective DATE OF SERVICE: Jan 24, 2020 Remains in atrial fibrillation; rates controlled. Occasional PVC's - non- sustained BP parameters in high normal range. Remains off amiodarone Full vent support via trach s/p left thorocentesis 01/22/20 Objective Last 24 Hour Vital Signs Date Time Temp Pulse Resp B/P (MAP) Pulse Ox O2 Delivery O2 Flow Rate FiO2 01/24/20 23:33 65 22 100 Mechanical Ventilator 60 68 56 60 01/24/20 21:47 68 138/66 01/24/20 20:00 99.9 70 19 140/65 (90) 100 01/24/20 20:00 75 01/24/20 20:00 40 01/24/20 18:41 72 25 60 01/24/20 17:43 99.8 01/24/20 17:08 75 150/69 01/24/20 17:08 150/69 01/24/20 16:00 Mechanical Ventilator Mechanical Ventilator 01/24/20 16:00 97.9 73 22 147/70 (95) 100 01/24/20 16:00 40 01/24/20 15:16 72 01/24/20 15:15 76 22 100 Mechanical Ventilator 60 69 18 60 01/24/20 14:14 70 20 139/63 100 01/24/20 13:44 72 20 142/67 100 01/24/20 12:39 153/71 01/24/20 12:00 97.5 76 20 149/68 (95) 100 01/24/20 12:00 Mechanical Ventilator Mechanical Ventilator 01/24/20 12:00 40 01/24/20 11:40 69 01/24/20 10:40 69 24 100 Mechanical Ventilator 60 69 18 60 01/24/20 09:42 73 141/64 01/24/20 08:01 71 155/76 01/24/20 08:00 Mechanical Ventilator Mechanical Ventilator 01/24/20 08:00 97.8 72 20 155/76 (102) 100 01/24/20 08:00 82 01/24/20 08:00 155/76 01/24/20 08:00 40 01/24/20 07:17 74 24 85 01/24/20 06:59 82 18 146/74 100 01/24/20 06:29 80 20 151/78 100 01/24/20 04:00 97.6 80 20 158/78 (104) 100 01/24/20 04:00 40 01/24/20 03:45 81 01/24/20 03:23 78 23 85 ROS: unchanged for 01/17/20 HEENT: Mechanically Ventilated, Thick Trach secretions RHYTHM: Afib LUNGS: bilateral rhonchi CARDIAC: normal S1 and S2, irregularly irregular ABDOMEN: normal bowel sounds, non tender, soft, G-Tube intact EXTREMITIES: normal inspection, trace edema Laboratory Tests Test 01/24/20 02:55 01/24/20 05:00 01/24/20 06:06 01/24/20 10:14 White Blood Count 14.0 K/UL (4.8-10.8) H Red Blood Count 2.52 M/UL (4.20-5.40) L Hemoglobin 7.1 G/DL (12.0-16.0) L Hematocrit 21.4 % (37.0-47.0) L Mean Corpuscular Volume 85 FL (80-99) Mean Corpuscular Hemoglobin 28.2 PG (27.0-31.0) Mean Corpuscular Hemoglobin Concent 33.3 G/DL (32.0-36.0) Red Cell Distribution Width 15.4 % (11.6-14.8) H Platelet Count 184 K/UL (150-450) Mean Platelet Volume 6.3 FL (6.5-10.1) L Neutrophils (%) (Auto) % (45.0-75.0) Lymphocytes (%) (Auto) % (20.0-45.0) Monocytes (%) (Auto) % (1.0-10.0) Eosinophils (%) (Auto) % (0.0-3.0) Basophils (%) (Auto) % (0.0-2.0) Sodium Level 141 MMOL/L (136-145) Potassium Level 4.1 MMOL/L (3.5-5.1) Chloride Level 104 MMOL/L (98-107) Carbon Dioxide Level 23 MMOL/L (21-32) Anion Gap 14 mmol/L (5-15) Blood Urea Nitrogen 80 mg/dL (7-18) H Creatinine 3.0 MG/DL (0.55-1.30) H Estimat Glomerular Filtration Rate 16.7 mL/min (>60) Glucose Level 89 MG/DL (74-106) Calcium Level 8.2 MG/DL (8.5-10.1) L Random Vancomycin Level 14.9 ug/mL Miscellaneous Test Pending POC Whole Blood Glucose 91 MG/DL (74-106) Arterial Blood pH 7.461 (7.350-7.450) Arterial Blood Partial Pressure CO2 30.5 mmHg (35.0-45.0) L Arterial Blood Partial Pressure O2 123.0 mmHg (75.0-100.0) H Arterial Blood HCO3 21.3 mmol/L (22.0-26.0) L Arterial Blood Oxygen Saturation 98.0 % (95-100) Arterial Blood Base Excess -2.2 (-2-2) L Rojas Test Positive Test 01/24/20 12:34 01/24/20 17:06 POC Whole Blood Glucose Pending Pending Microbiology Date/Time Source Procedure Growth Status 01/22/20 14:43 Thoracic Fluid Gram Stain - Final Resulted 01/22/20 14:43 Thoracic Fluid Body Fluid Culture - Preliminary NO GROWTH AFTER 24 HOURS Resulted Assessment/Plan Assessment/Plan Chronic respiratory failure with trach Severe sepsis PAFib with rapid ventric response, now rate controlled. Ischemic cardiomyopathy - hx CABG and s/p NSTEMI in Dec 2019. Conduction system disease of the heart Hx of permanent pacemaker explant Acute on chronic systolic and diastolic CHF Pleural effusion - s/p left thorocentesis Anemia of chronic kidney disease and chronic disease Hypertension/HHD with rising BP range. Continue beta flori titration Anti-failure and anti-anginal regimen with titration; nitrates advanced. Vent support Abx per ID Continuous cardiac monitoring Transfuse PRBC's for further drop of hemoglobin Deni Willams MD Jan 25, 2020 00:16
[2020-01-25 04:00] VITALS: BP 153/70
[2020-01-25] MEDS: LORazepam Inj 2mg/ml 1ml IV SCH ×3 (05:14→20:41)
--- NOTE | 2020-01-25 05:58 | Pulmonology Progress Note ---
Subjective ROS Limited/Unobtainable: Yes Interval Events: Doing well; Constitutional: Reports: no symptoms HEENT: Repors: no symptoms Respiratory: Reports: no symptoms Cardiovascular: Reports: no symptoms Gastrointestinal/Abdominal: Reports: no symptoms Allergies: Coded Allergies: No Known Allergies (Unverified , 10/10/17) All Systems: reviewed and negative except above Objective Last 24 Hour Vital Signs Date Time Temp Pulse Resp B/P (MAP) Pulse Ox O2 Delivery O2 Flow Rate FiO2 01/25/20 04:00 98.2 65 18 153/70 (97) 100 01/25/20 04:00 40 01/25/20 04:00 63 01/25/20 03:07 62 16 60 01/25/20 00:00 64 01/25/20 00:00 98.6 65 19 143/68 (93) 100 01/25/20 00:00 40 01/24/20 23:33 65 22 100 Mechanical Ventilator 60 68 56 60 01/24/20 21:47 68 138/66 01/24/20 20:00 99.9 70 19 140/65 (90) 100 01/24/20 20:00 75 01/24/20 20:00 40 01/24/20 18:41 72 25 60 01/24/20 17:43 99.8 01/24/20 17:08 75 150/69 01/24/20 17:08 150/69 01/24/20 16:00 Mechanical Ventilator Mechanical Ventilator 01/24/20 16:00 97.9 73 22 147/70 (95) 100 01/24/20 16:00 40 01/24/20 15:16 72 01/24/20 15:15 76 22 100 Mechanical Ventilator 60 69 18 60 01/24/20 14:14 70 20 139/63 100 01/24/20 13:44 72 20 142/67 100 01/24/20 12:39 153/71 01/24/20 12:00 97.5 76 20 149/68 (95) 100 01/24/20 12:00 Mechanical Ventilator Mechanical Ventilator 01/24/20 12:00 40 01/24/20 11:40 69 01/24/20 10:40 69 24 100 Mechanical Ventilator 60 69 18 60 01/24/20 09:42 73 141/64 01/24/20 08:01 71 155/76 01/24/20 08:00 Mechanical Ventilator Mechanical Ventilator 01/24/20 08:00 97.8 72 20 155/76 (102) 100 01/24/20 08:00 82 01/24/20 08:00 155/76 01/24/20 08:00 40 01/24/20 07:17 74 24 85 01/24/20 06:59 82 18 146/74 100 01/24/20 06:29 80 20 151/78 100 Intake and Output 01/24/20 01/25/20 19:00 07:00 Intake Total 585 ml 350 ml Output Total 250 ml Balance 335 ml 350 ml Free Water 90 ml IV Total 110 ml Tube Feeding 385 ml 350 ml Output Urine Total 250 ml General Appearance: no acute distress HEENT: normocephalic, other - trach Respiratory: chest wall non-tender, other - coarse lung sounds Cardiovascular: normal rate, regular rhythm Abdomen: soft, non tender Genitourinary: other - Norman Extremities: other - trace edema Microbiology Date/Time Source Procedure Growth Status 01/22/20 14:43 Thoracic Fluid Gram Stain - Final Resulted 01/22/20 14:43 Thoracic Fluid Body Fluid Culture - Preliminary NO GROWTH AFTER 48 HOURS Resulted Laboratory Tests 01/24/20 06:06: POC Whole Blood Glucose 91 01/24/20 10:14: Arterial Blood pH 7.461H, Arterial Blood Partial Pressure CO2 30.5L, Arterial Blood Partial Pressure O2 123.0H, Arterial Blood HCO3 21.3L, Arterial Blood Oxygen Saturation 98.0, Arterial Blood Base Excess -2.2L, Rojas Test Positive 01/24/20 12:34: POC Whole Blood Glucose [Pending] 01/24/20 17:06: POC Whole Blood Glucose [Pending] 01/25/20 00:41: POC Whole Blood Glucose 83 01/25/20 05:13: POC Whole Blood Glucose 86 Current Medications Medications (Trade) Dose Ordered Sig/Penny Route PRN Reason Start Time Stop Time Status Last Admin Dose Admin Acetaminophen (Tylenol) 500 mg Q6H PRN GT FEVER 01/21/20 20:45 02/20/20 20:44 01/24/20 17:13 Amlodipine Besylate (Norvasc) 5 mg BID GT 01/22/20 18:00 02/20/20 15:44 01/24/20 17:08 Aspirin (ASA) 81 mg DAILY GT 01/20/20 09:00 03/05/20 08:59 01/22/20 09:13 Atorvastatin Calcium (Lipitor) 10 mg BEDTIME GT 01/17/20 21:00 04/16/20 20:59 01/24/20 21:47 Barium Sulfate (Readi-Cat 2) 450 ml NOW PRN ORAL Radiology Procedure 01/24/20 10:45 01/26/20 10:44 Chlorhexidine Gluconate (Ling-Hex 2%) 1 applic DAILY@2000 TOPIC 01/17/20 20:00 04/16/20 19:59 01/24/20 21:46 Dextrose (Dextrose 50%) 25 ml Q30M PRN IV Hypoglycemia 01/15/20 22:15 04/14/20 22:14 Dextrose (Dextrose 50%) 50 ml Q30M PRN IV Hypoglycemia 01/15/20 22:15 04/14/20 22:14 01/22/20 17:54 Iohexol (OMNIPAQUE-300 100ml) 100 ml NOW PRN INJ Radiology Procedure 01/24/20 10:45 01/26/20 10:44 Isosorbide Dinitrate (Isordil) 20 mg TID GT 01/25/20 09:00 02/19/20 08:59 Lansoprazole (Prevacid) 30 mg BID GT 01/19/20 18:00 02/18/20 17:59 01/24/20 17:07 Lorazepam (Ativan 2mg/ml 1ml) 0.5 mg EVERY 8 HOURS IV 01/23/20 22:00 01/30/20 21:59 01/24/20 13:44 Meropenem 500 mg/ Sodium Chloride 55 ml @ 110 mls/hr Q24H IVPB 01/22/20 10:30 01/27/20 10:29 01/24/20 09:40 Metoclopramide HCl (Reglan) 5 mg Q6H PRN IVP Nausea & Vomiting 01/15/20 22:15 02/14/20 22:14 Metoprolol Tartrate (Lopressor) 25 mg Q12HR ORAL 01/23/20 09:00 04/22/20 08:59 01/24/20 21:47 Tobramycin Sulfate (Nebcin) 300 mg Q12HRT INH 01/23/20 22:00 01/29/20 09:59 01/24/20 23:33 Zinc Oxide (Zinc Oxide) 1 applic TIDPRN PRN TOPIC diogenes GT 01/16/20 13:15 04/15/20 13:14 01/16/20 14:55 Assessment/Plan Assessment/Plan 1. Large left effusion. - S/p thoracentesis; CXR better 2. Chronic respiratory failure. - on trach, current setting: AC 14, VT 500, FiO2 50%, PEEP 5 - Cont AC mode - Currently saturating at 98% 3. Sepsis. - WBC 26.3 -> 20.5 4. Anemia - s/p 1 unit pRBC - Hgb 7 -> 9 -> 8.6 s/p HD Broad-spectrum antibiotics. Pulmonary hygiene. DVT and GI prophylaxes. We will follow carefully. TIme spent for this case was approximately 31 minutes Elijah Stephen MD Jan 25, 2020 05:58
--- NOTE | 2020-01-25 06:52 | NUR ---
NURSE HAND-OFF REPORT: Important Events on Shift: No changes; hematuric Patient Status: Stable Diet: Nepro Pending Orders: Pending Results/Labs: Pending MD notification: Latest Vital Signs: Temperature 98.2 , Pulse 65 , B/P 153 /70 , Respiratory Rate 18 , O2 SAT 100 , Mechanical Ventilator, O2 Flow Rate . Vital Sign Comment: EKG Rhythm: Sinus Rhythm Rhythm change?: N MD Notified?: Gabriel Willams MD Response: Order Received& Read Back Latest Chavarria Fall Score: 70 Fall Risk: High Risk Safety Measures: Call light Within Reach, Bed Alarm Zone 1, Side Rails Side Rails x3, Bed position Low and Locked. Fall Precautions: Yellow Socks Report given to .
--- NOTE | 2020-01-25 07:15 | NUR ---
NURSE NOTES: Received report from Charo ZIMMERMAN.
[2020-01-25 08:00] VITALS: BP 150/70
--- NOTE | 2020-01-25 08:24 | General Progress Note ---
Subjective ROS Limited/Unobtainable: No Allergies: Coded Allergies: No Known Allergies (Unverified , 10/10/17) Objective Last 24 Hour Vital Signs Date Time Temp Pulse Resp B/P (MAP) Pulse Ox O2 Delivery O2 Flow Rate FiO2 01/25/20 04:00 98.2 65 18 153/70 (97) 100 01/25/20 04:00 40 01/25/20 04:00 63 01/25/20 03:07 62 16 60 01/25/20 00:00 64 01/25/20 00:00 98.6 65 19 143/68 (93) 100 01/25/20 00:00 40 01/24/20 23:33 65 22 100 Mechanical Ventilator 60 68 56 60 01/24/20 21:47 68 138/66 01/24/20 20:00 99.9 70 19 140/65 (90) 100 01/24/20 20:00 75 01/24/20 20:00 40 01/24/20 18:41 72 25 60 01/24/20 17:43 99.8 01/24/20 17:08 75 150/69 01/24/20 17:08 150/69 01/24/20 16:00 Mechanical Ventilator Mechanical Ventilator 01/24/20 16:00 97.9 73 22 147/70 (95) 100 01/24/20 16:00 40 01/24/20 15:16 72 01/24/20 15:15 76 22 100 Mechanical Ventilator 60 69 18 60 01/24/20 14:14 70 20 139/63 100 01/24/20 13:44 72 20 142/67 100 01/24/20 12:39 153/71 01/24/20 12:00 97.5 76 20 149/68 (95) 100 01/24/20 12:00 Mechanical Ventilator Mechanical Ventilator 01/24/20 12:00 40 01/24/20 11:40 69 01/24/20 10:40 69 24 100 Mechanical Ventilator 60 69 18 60 01/24/20 09:42 73 141/64 Intake and Output 01/24/20 01/25/20 19:00 07:00 Intake Total 585 ml 385 ml Output Total 250 ml Balance 335 ml 385 ml Free Water 90 ml IV Total 110 ml Tube Feeding 385 ml 385 ml Output Urine Total 250 ml Laboratory Tests 01/24/20 10:14: Arterial Blood pH 7.461H, Arterial Blood Partial Pressure CO2 30.5L, Arterial Blood Partial Pressure O2 123.0H, Arterial Blood HCO3 21.3L, Arterial Blood Oxygen Saturation 98.0, Arterial Blood Base Excess -2.2L, Rojas Test Positive 01/24/20 12:34: POC Whole Blood Glucose [Pending] 01/24/20 17:06: POC Whole Blood Glucose [Pending] 01/25/20 00:41: POC Whole Blood Glucose 83 01/25/20 05:13: POC Whole Blood Glucose 86 01/25/20 07:40: White Blood Count [Pending], Red Blood Count [Pending], Hemoglobin [Pending], He matocrit [Pending], Mean Corpuscular Volume [Pending], Mean Corpuscular Hemoglobin [Pending], Mean Corpuscular Hemoglobin Concent [Pending], Red Cell Distribution Width [Pending], Platelet Count [Pending], Mean Platelet Volume [Pending], Neutrophils (%) (Auto) [Pending], Lymphocytes (%) (Auto) [Pending], Monocytes (%) (Auto) [Pending], Eosinophils (%) (Auto) [Pending], Basophils (%) (Auto) [Pending], Sodium Level [Pending], Potassium Level [Pending], Chloride Level [Pending], Carbon Dioxide Level [Pending], Blood Urea Nitrogen [Pending], Creatinine [Pending], Estimat Glomerular Filtration Rate [Pending], Glucose Level [Pending], Calcium Level [Pending], Phosphorus Level [Pending], Magnesium Level [Pending], Total Bilirubin [Pending], Aspartate Amino Transf (AST/SGOT) [Pending], Alanine Aminotransferase (ALT/SGPT) [Pending], Alkaline Phosphatase [Pending], C-Reactive Protein, Quantitative [Pending], Pro-B-Type Natriuretic Peptide [Pending], Total Protein [Pending], Albumin [Pending], Globulin [Pending], Amylase Level [Pending], Lipase [Pending] Height (Feet): 5 Height (Inches): 6.00 Weight (Pounds): 150 General Appearance: no apparent distress EENT: normal ENT inspection Neck: supple Cardiovascular: normal rate Respiratory/Chest: decreased breath sounds Abdomen: normal bowel sounds, non tender, soft Extremities: non-tender Assessment/Plan Problem List: (1) Hx of CABG ICD Codes: Z95.1 - Presence of aortocoronary bypass graft SNOMED: 580192544, 345312814 (2) History of tracheostomy ICD Codes: Z98.890 - Other specified postprocedural states SNOMED: 600032745, 308439179 (3) PEG (percutaneous endoscopic gastrostomy) status ICD Codes: Z93.1 - Gastrostomy status SNOMED: 174248292, 284097284 (4) S/P aortic dissection repair ICD Codes: Z98.890 - Other specified postprocedural states SNOMED: 608930324, 457206626 (5) Renal failure ICD Codes: N19 - Unspecified kidney failure SNOMED: 70613686, 192812278 (6) Anemia ICD Codes: D64.9 - Anemia, unspecified SNOMED: 270092299 Assessment/Plan: not stable for GI procedures ppi blood transfusion fu labs EGD when more stable GT topical care fu nephrology HD per nephrology repeat amylase and lipase increase GTF to 40 cc Inder Mccauley MD Jan 25, 2020 08:24
[2020-01-25 08:27] LABS: HEMATOCRIT 21.1 % (37.0-47.0); HEMOGLOBIN 7.3 G/DL (12.0-16.0); MEAN CORPUSCULAR VOLUME 81 FL (80-99); PLATELET COUNT 157 K/UL (150-450); RED BLOOD COUNT 2.61 M/UL (4.20-5.40); RED CELL DISTRIBUTION WIDTH 15.8 % (11.6-14.8); WHITE BLOOD COUNT 9.2 K/UL (4.8-10.8)
--- NOTE | 2020-01-25 08:30 | NUR ---
NURSE NOTES: Pt. in bed, sleeping but response to tactile stimuli. No sign of distress. Mech. vent dependent with setting AC14/VT500/Fi O2 at 50%/P5. No grimacing noted. HOB elevated at all times. On GTF Nepro at 35cc/hr. Tolerating well. No n/v noted. F/C in placed patent/intact draining raul colored urine with strict of blood and sediments noted. Charlie cath at left femoral in placed. IV site at left wrist #[id number]. in placed patent/intact. Bed in low position, locked. Call light within reach. Will cont. to monitor.
[2020-01-25 09:13] LABS: ALBUMIN 1.9 G/DL (3.4-5.0); ALBUMIN/GLOBULIN RATIO 0.4 (1.0-2.7); BILIRUBIN,TOTAL 0.5 MG/DL (0.2-1.0); CALCIUM 7.8 MG/DL (8.5-10.1); CREATININE 3.6 MG/DL (0.55-1.30); PHOSPHORUS 4.6 MG/DL (2.5-4.9)
[2020-01-25 09:15] LABS: AMYLASE 363 U/L (25-115)
[2020-01-25] MEDS: Metoprolol Tartrate 12.5mg TAB ORAL SCH ×2 (09:17→20:48)
[2020-01-25] MEDS: Aspirin Baby 81mg GT SCH (09:17)
[2020-01-25] MEDS: Tobramycin for inhalation INH SCH ×2 (10:36→22:57)
[2020-01-25] MEDS: Meropenem 500 MG in NS 55 ML IVPB SCH (11:10)
[2020-01-25 12:00] VITALS: BP 137/69
--- NOTE | 2020-01-25 12:00 | NUR ---
NURSE NOTES: Seen by Dr. Houston with labs order for tomorrow.
--- NOTE | 2020-01-25 12:03 | Nephrology Progress Note ---
Assessment/Plan Problem List: (1) ARF (acute renal failure) (2) Pacemaker (3) Sepsis (4) Hyponatremia Assessment (1) JAVIER (acute kidney injury) (2) Renal failure (ARF), acute on chronic (3) Feeding by G-tube (4) Tracheostomy in place (5) Electrolyte imbalance, hyponatremia (6) Anemia, severe (7) Respiratory failure, acute and chronic (8) Elevated lipase, pancreatitis (9) Elevated troponin I (10) Sepsis Plan January 24: Last dialyzed January 22. Labs reviewed. Status quo. Will dialyze as needed. Low hemoglobin noted. Transfusion per PMD decision. Epogen started. \January 23: Dialyzed yesterday. Today's labs reviewed. Continue to monitor renal parameters and arrange for dialysis as needed. Continue per PMD. January 22: Seen earlier during dialysis. Labs reviewed. Medication list r eviewed. Continue current management. January 21: Labs reviewed. Medication list reviewed. Next hemodialysis tomorrow. Blood pressure medication adjusted. January 20: Dialyzed yesterday. Labs reviewed. Continue per current management. Dialysis as needed. Add Norvasc to blood pressure regimen January 19: Due for dialysis today. Labs reviewed. Continue her current management. Continue to monitor renal parameters and electrolytes. January 18: Dialyzed yesterday. Labs reviewed. Renal parameters electrolytes much improved. Dialysis again tomorrow. Continue rest. January 17: Dialyzed this morning. Labs reviewed. Renal parameters and electrolyte abnormalities improved. Discussed with RN. Continue per consultants. January 16: Dialyzed yesterday. Labs improved. Next dialysis tomorrow. Continue per consultants. January 15: Patient to have dialysis catheter. Emergency dialysis for correction of uremia and electrolyte imbalances Antibiotics Transfusion Continue to monitor renal parameters Per orders Discussed with RN Subjective ROS Limited/Unobtainable: Yes Objective Objective Last 24 Hour Vital Signs Date Time Temp Pulse Resp B/P (MAP) Pulse Ox O2 Delivery O2 Flow Rate FiO2 01/25/20 09:18 150/70 01/25/20 09:17 66 150/70 01/25/20 09:17 66 150/70 01/25/20 08:13 64 01/25/20 08:00 98.1 66 22 150/70 (96) 100 01/25/20 08:00 40 01/25/20 07:20 52 16 60 01/25/20 04:00 98.2 65 18 153/70 (97) 100 01/25/20 04:00 40 01/25/20 04:00 63 01/25/20 03:07 62 16 60 01/25/20 00:00 64 01/25/20 00:00 98.6 65 19 143/68 (93) 100 01/25/20 00:00 40 01/24/20 23:33 65 22 100 Mechanical Ventilator 60 68 56 60 01/24/20 21:47 68 138/66 01/24/20 20:00 99.9 70 19 140/65 (90) 100 01/24/20 20:00 75 01/24/20 20:00 40 01/24/20 18:41 72 25 60 01/24/20 17:43 99.8 01/24/20 17:08 75 150/69 01/24/20 17:08 150/69 01/24/20 16:00 Mechanical Ventilator Mechanical Ventilator 01/24/20 16:00 97.9 73 22 147/70 (95) 100 01/24/20 16:00 40 01/24/20 15:16 72 01/24/20 15:15 76 22 100 Mechanical Ventilator 60 69 18 60 01/24/20 14:14 70 20 139/63 100 01/24/20 13:44 72 20 142/67 100 01/24/20 12:39 153/71 Intake and Output 01/24/20 01/25/20 19:00 07:00 Intake Total 585 ml 385 ml Output Total 250 ml Balance 335 ml 385 ml Free Water 90 ml IV Total 110 ml Tube Feeding 385 ml 385 ml Output Urine Total 250 ml Current Medications Medications (Trade) Dose Ordered Sig/Penny Route PRN Reason Start Time Stop Time Status Last Admin Dose Admin Acetaminophen (Tylenol) 500 mg Q6H PRN GT FEVER 01/21/20 20:45 02/20/20 20:44 01/24/20 17:13 Amlodipine Besylate (Norvasc) 5 mg BID GT 01/22/20 18:00 02/20/20 15:44 01/25/20 09:17 Aspirin (ASA) 81 mg DAILY GT 01/20/20 09:00 03/05/20 08:59 01/25/20 09:17 Atorvastatin Calcium (Lipitor) 10 mg BEDTIME GT 01/17/20 21:00 04/16/20 20:59 01/24/20 21:47 Barium Sulfate (Readi-Cat 2) 450 ml NOW PRN ORAL Radiology Procedure 01/24/20 10:45 01/26/20 10:44 Chlorhexidine Gluconate (Ling-Hex 2%) 1 applic DAILY@2000 TOPIC 01/17/20 20:00 04/16/20 19:59 01/24/20 21:46 Dextrose (Dextrose 50%) 25 ml Q30M PRN IV Hypoglycemia 01/15/20 22:15 04/14/20 22:14 Dextrose (Dextrose 50%) 50 ml Q30M PRN IV Hypoglycemia 01/15/20 22:15 04/14/20 22:14 01/22/20 17:54 Iohexol (OMNIPAQUE-300 100ml) 100 ml NOW PRN INJ Radiology Procedure 01/24/20 10:45 01/26/20 10:44 Isosorbide Dinitrate (Isordil) 20 mg TID GT 01/25/20 09:00 02/19/20 08:59 01/25/20 09:18 Lansoprazole (Prevacid) 30 mg BID GT 01/19/20 18:00 02/18/20 17:59 01/25/20 09:17 Lorazepam (Ativan 2mg/ml 1ml) 0.5 mg EVERY 8 HOURS IV 01/23/20 22:00 01/30/20 21:59 01/24/20 13:44 Meropenem 500 mg/ Sodium Chloride 55 ml @ 110 mls/hr Q24H IVPB 01/22/20 10:30 01/27/20 10:29 01/25/20 11:10 Metoclopramide HCl (Reglan) 5 mg Q6H PRN IVP Nausea & Vomiting 01/15/20 22:15 02/14/20 22:14 Metoprolol Tartrate (Lopressor) 25 mg Q12HR ORAL 01/23/20 09:00 04/22/20 08:59 01/25/20 09:17 Tobramycin Sulfate (Nebcin) 300 mg Q12HRT INH 01/23/20 22:00 01/29/20 09:59 01/25/20 10:36 Zinc Oxide (Zinc Oxide) 1 applic TIDPRN PRN TOPIC diogenes GT 01/16/20 13:15 04/15/20 13:14 01/16/20 14:55 Laboratory Tests 01/24/20 12:34: POC Whole Blood Glucose [Pending] 01/24/20 17:06: POC Whole Blood Glucose [Pending] 01/25/20 00:41: POC Whole Blood Glucose 83 01/25/20 05:13: POC Whole Blood Glucose 86 01/25/20 07:40: White Blood Count 9.2, Red Blood Count 2.61L, Hemoglobin 7.3L, Hematocrit 21.1L, Mean Corpuscular Volume 81, Mean Corpuscular Hemoglobin 27.9, Mean Corpuscular Hemoglobin Concent 34.6, Red Cell Distribution Width 15.8H, Platelet Count 157, Mean Platelet Volume 6.4L, Neutrophils (%) (Auto) , Lymphocytes (%) (Auto) , Monocytes (%) (Auto) , Eosinophils (%) (Auto) , Basophils (%) (Auto) , Differential Total Cells Counted 100, Neutrophils % (Manual) 82H, Lymphocytes % (Manual) 14L, Monocytes % (Manual) 4, Eosinophils % (Manual) 0, Basophils % (Manual) 0, Band Neutrophils 0, Platelet Estimate Adequate, Platelet Morphology Normal, Hypochromasia 1+, Anisocytosis 1+, Sodium Level 142, Potassium Level 4.0, Chloride Level 105, Carbon Dioxide Level 25, Anion Gap 12, Blood Urea Nitrogen 99H, Creatinine 3.6H, Estimat Glomerular Filtration Rate 13.6, Glucose Level 89, Calcium Level 7.8L, Phosphorus Level 4.6, Magnesium Level 2.5H, Total Bilirubin 0.5, Aspartate Amino Transf (AST/SGOT) 33, Alanine Aminotransferase (ALT/SGPT) 14, Alkaline Phosphatase 235H, C-Reactive Protein, Quantitative 21.0H , Pro-B-Type Natriuretic Peptide > 16731V, Total Protein 6.4, Albumin 1.9L, Globulin 4.5, Albumin/Globulin Ratio 0.4L, Amylase Level 363H, Lipase > 2000H Height (Feet): 5 Height (Inches): 6.00 Weight (Pounds): 150 General Appearance: no apparent distress EENT: other Cardiovascular: normal rate Respiratory/Chest: decreased breath sounds Abdomen: distended Johnny Houston MD Jan 25, 2020 12:03
--- NOTE | 2020-01-25 14:14 | NUR ---
NURSE NOTES: Held Ativan 2mg. IVP scheduled due to pt. is so sleepy.
[2020-01-25 16:00] VITALS: BP 141/64
--- NOTE | 2020-01-25 17:54 | Surgery Progress Note ---
Surgery Progress Note Subjective Procedure Performed Left femoral temporary hemodialysis catheter insertion Symptoms: improved, tolerating diet, passing flatus Objective Last 24 Hour Vital Signs Date Time Temp Pulse Resp B/P (MAP) Pulse Ox O2 Delivery O2 Flow Rate FiO2 01/25/20 15:25 65 18 60 01/25/20 13:50 137/69 01/25/20 12:00 97.9 62 18 137/69 (91) 100 01/25/20 12:00 40 01/25/20 11:48 61 01/25/20 10:51 58 14 100 Mechanical Ventilator 60 60 15 60 01/25/20 09:18 150/70 01/25/20 09:17 66 150/70 01/25/20 09:17 66 150/70 01/25/20 08:13 64 01/25/20 08:00 98.1 66 22 150/70 (96) 100 01/25/20 08:00 40 01/25/20 07:20 52 16 60 01/25/20 04:00 98.2 65 18 153/70 (97) 100 01/25/20 04:00 40 01/25/20 04:00 63 01/25/20 03:07 62 16 60 01/25/20 00:00 64 01/25/20 00:00 98.6 65 19 143/68 (93) 100 01/25/20 00:00 40 01/24/20 23:33 65 22 100 Mechanical Ventilator 60 68 56 60 01/24/20 21:47 68 138/66 01/24/20 20:00 99.9 70 19 140/65 (90) 100 01/24/20 20:00 75 01/24/20 20:00 40 01/24/20 18:41 72 25 60 I&O Intake and Output 01/24/20 01/25/20 19:00 07:00 Intake Total 585 ml 420 ml Output Total 250 ml Balance 335 ml 420 ml Free Water 90 ml IV Total 110 ml Tube Feeding 385 ml 420 ml Output Urine Total 250 ml Dressing: saturated Cardiovascular: RSR Respiratory: decreased breath sounds Abdomen: non-tender, present bowel sounds Extremities: edema, no tenderness, no cyanosis Laboratory Tests Test 01/25/20 00:41 01/25/20 05:13 01/25/20 07:40 POC Whole Blood Glucose 83 MG/DL (74-106) 86 MG/DL (74-106) White Blood Count 9.2 K/UL (4.8-10.8) Red Blood Count 2.61 M/UL (4.20-5.40) L Hemoglobin 7.3 G/DL (12.0-16.0) L Hematocrit 21.1 % (37.0-47.0) L Mean Corpuscular Volume 81 FL (80-99) Mean Corpuscular Hemoglobin 27.9 PG (27.0-31.0) Mean Corpuscular Hemoglobin Concent 34.6 G/DL (32.0-36.0) Red Cell Distribution Width 15.8 % (11.6-14.8) H Platelet Count 157 K/UL (150-450) Mean Platelet Volume 6.4 FL (6.5-10.1) L Neutrophils (%) (Auto) % (45.0-75.0) Lymphocytes (%) (Auto) % (20.0-45.0) Monocytes (%) (Auto) % (1.0-10.0) Eosinophils (%) (Auto) % (0.0-3.0) Basophils (%) (Auto) % (0.0-2.0) Differential Total Cells Counted 100 Neutrophils % (Manual) 82 % (45-75) H Lymphocytes % (Manual) 14 % (20-45) L Monocytes % (Manual) 4 % (1-10) Eosinophils % (Manual) 0 % (0-3) Basophils % (Manual) 0 % (0-2) Band Neutrophils 0 % (0-8) Platelet Estimate Adequate Platelet Morphology Normal Hypochromasia 1+ Anisocytosis 1+ Sodium Level 142 MMOL/L (136-145) Potassium Level 4.0 MMOL/L (3.5-5.1) Chloride Level 105 MMOL/L (98-107) Carbon Dioxide Level 25 MMOL/L (21-32) Anion Gap 12 mmol/L (5-15) Blood Urea Nitrogen 99 mg/dL (7-18) H Creatinine 3.6 MG/DL (0.55-1.30) H Estimat Glomerular Filtration Rate 13.6 mL/min (>60) Glucose Level 89 MG/DL (74-106) Calcium Level 7.8 MG/DL (8.5-10.1) L Phosphorus Level 4.6 MG/DL (2.5-4.9) Magnesium Level 2.5 MG/DL (1.8-2.4) H Total Bilirubin 0.5 MG/DL (0.2-1.0) Aspartate Amino Transf (AST/SGOT) 33 U/L (15-37) Alanine Aminotransferase (ALT/SGPT) 14 U/L (12-78) Alkaline Phosphatase 235 U/L (46-116) H C-Reactive Protein, Quantitative 21.0 mg/dL (0.00-0.90) H Pro-B-Type Natriuretic Peptide > 12812 pg/mL (0-125) H Total Protein 6.4 G/DL (6.4-8.2) Albumin 1.9 G/DL (3.4-5.0) L Globulin 4.5 g/dL Albumin/Globulin Ratio 0.4 (1.0-2.7) L Amylase Level 363 U/L (25-115) H Lipase > 2000 U/L (73-393) H Plan Problems: (1) Dehydration (2) Acidosis (3) Depression (4) Pleural effusion (5) Respiratory failure (6) Schizophrenia (7) Hypoxia (8) UTI (urinary tract infection) (9) Pneumonia (10) NSTEMI (non-ST elevated myocardial infarction) (11) Tracheostomy in place (12) Feeding by G-tube (13) JAVIER (acute kidney injury) (14) Acute encephalopathy (15) Sacral decubitus ulcer, stage IV (16) Chronic respiratory failure (17) Ascites (18) Bacteremia (19) Hypernatremia (20) Proteinuria (21) Electrolyte imbalance (22) ACS (acute coronary syndrome) (23) Aortic dissection, thoracic (24) Respiratory failure, acute and chronic (25) JAVIER (acute kidney injury) (26) Abrasion of lip, initial encounter (27) COPD with exacerbation (28) Elevated alkaline phosphatase level (29) Renal failure (ARF), acute on chronic (30) HCAP (healthcare-associated pneumonia) (31) GT CLOGGED (32) Elevated lipase (33) Pancreatitis (34) Elevated troponin (35) Hypokalemia (36) Hyponatremia (37) Anemia (38) Renal failure (39) ARF (acute renal failure) (40) Pacemaker (41) Sepsis Assessment & Plan: leukocytosis anemia on HD renal insufficiency wounds addressed pt presented on admission with Tracheostomy ,GT and Multiple Pressure Injuries. Skin assessment of skin under tracheal collar without evidence of skin breakdown. Peristomal GT site excoriated.Moderate amt of dark red sanguineous exudate. Full Thickness Sacral Pressure Injury with undermined borders (L)9 cm x (W)12cm x (D)1.8cm,Undermining clockwise8-9 by 2.2cm @1o'clock,undermining clockwise 1-4 by 1.9 @ 9'oclock Scattered necrotic tissue within wound bed. Borders are loose and necrotic with marginal erythema to outer perimeter of wound. NO elevation in skin temp noted periwound. Wound is malodorous. Small amt Brown exudate noted. Resolving Pressure Injury L Ischium(L)1.5cm x (W)1.5cm. Base of wound is 80% pink epithelial with an area that is moist and pink. NO odor or exudate noted. Bilat foot-drop noted. L Heel is boggy with non-blanchable erythema(L)4cm x (W)4cm. R heel is boggy with non-Blanchable erythema(L)5cm x (W)6cm. Tx.Plan: Cleanse sacral wound with Dakin's 0.125% annie. Loosely pack with Dakin's moistened Kerlix(Attention to undermined borders). Apply Moisture Barrier Paste periwound. Cover with Optifoam drsg. Change Daily and PRN. Apply Cavilon Skin Barrier to R and L Hels. Cover each heel with Optifoam drsg. Change every 7 days and prn. Reposition at least every 2hours or as tolerated. Off-load heels with Pillow. APM/JENNIFER MAttress overlay DAILY ESTIMATED NEEDS: Needs based on Critical care, wound, renal dysfunction 56 kg abw 28-33 kcals/kg 2362-5262 total kcals W/ HD (1.5-2.0) g protein/kg 84-112 g total protein Fluid per MD mL/kg . total fluid mLs NUTRITION DIAGNOSIS: * Swallowing difficulty R/T dysphagia, respiratory status as evidenced by vent dep via trach, GT Dep. * Increase kcal and pro needs r/t wound healing, renal dysfunction as evidenced by admitted w/ large, advanced sacral wound, previously stage 4, pending eval, admitted w/ JAVIER, pending HD. CURRENT TF:NPO ENTERAL NUTRITION RECOMMENDATIONS: Nepro @ 40ml/hr x 24 hrs + Prosource 1pkt QD to provide 960ml, 1728kcal, 78g+11g prot, 698ml free water * As medically appropriate, initiate TF on Nepro, rec goal rate fo 40ml/hr x 24 hrs * Add Prosource 1pkt QD to better meet increased protein needs (additional 11g prot) * Water flush per MD/ HOB over 30 degrees ADDITIONAL RECOMMENDATIONS: * Per SNF in NOV 2019: HT=63"/ Rec daily calibrated bedscale wt * Monitor for continuity of HD: non-tunneled cath placement ordered * Monitor lytes and renal fxn for improvement (Na low, K and phos elevated) * Wound care: add Nephrovite x 1, ZnSO4 220mg QD x 10 days Reynaldo BID via PEG (mix w/ 2-4 oz water) * Monitor BG closely for hypoglycemia while NPO (h/o DM, on Nacl 3% to correct hyponatremia, consider accuchecks) (42) Hyponatremia Lane Saavedra Jan 25, 2020 17:54
--- NOTE | 2020-01-25 18:54 | NUR ---
RESPIRATORY NOTE: Received pt on AC VC 14, 500VT, 60%, PEEP +5. Pt is trach-dependent w/ a cuffed, Shiley 7 XLT tube. Pt disoriented. B/S sara. rhonchi, sxn small amounts of thick/thin, pale-yellow secretions. Vent plugged into red outlet, ambubag at bedside. Pt in no apparent distress at this time. Will continue plan of care.
--- NOTE | 2020-01-25 19:26 | NUR ---
NURSE HAND-OFF REPORT: Important Events on Shift: Pt. remain stable. Picture taken for wounds. Patient Status: stable Diet: Nepro Pending Orders: poss. EGD Pending Results/Labs: N Pending notification: N Latest Vital Signs: Temperature 98.2 , Pulse 66 , B/P 141 /64 , Respiratory Rate 24 , O2 SAT 100 , Mechanical Ventilator, O2 Flow Rate . Vital Sign Comment: WNL EKG Rhythm: Sinus Rhythm Rhythm change?: N MD Notified?: Gabriel -Dr. Екатерина HATFIELD Response: Order Received& Read Back Latest Chavarria Fall Score: 70 Fall Risk: High Risk Safety Measures: Call light Within Reach, Bed Alarm Zone 1, Side Rails Side Rails x3, Bed position Low and Locked. Fall Precautions: Yellow Socks Report given to EDDI ZIMMERMAN.
--- NOTE | 2020-01-25 19:27 | NUR ---
NURSE NOTES: Received report from ERASMO Valencia. Pt appears obtunded, responsive to verbal and tactile stimuli. Vent settings of AC 14, Vt 500, 40% fiO2, P5 saturating 100% Vitals WNL; afebrile. 5-lead EKG shows SR. 0 residual on gtube running Nepro at 40 mL. Left IV intact. Left femoral QC patent and intact. Bed kept in lowest and locked position. Bed alarm on; side rails up x3. Will continue monitoring.
[2020-01-25 20:00] VITALS: BP 146/72
[2020-01-25] MEDS: Dyna-Hex 2% Top Sol 2oz TOPIC SCH (20:49)
[2020-01-26] VITALS: BP 156/79
--- NOTE | 2020-01-26 00:16 | NUR ---
NURSE NOTES: Bed bath and wound care provided. Pt in stable condition. Will monitor.
--- NOTE | 2020-01-26 00:25 | General Progress Note ---
Subjective Constitutional: Reports: no symptoms HEENT: Reports: no symptoms Cardiovascular: Reports: no symptoms Respiratory: Reports: no symptoms Gastrointestinal/Abdominal: Reports: no symptoms Genitourinary: Reports: no symptoms Neurologic/Psychiatric: Reports: no symptoms Endocrine: Reports: no symptoms, unexplained weight loss Hematologic/Lymphatic: Reports: no symptoms Allergies: Coded Allergies: No Known Allergies (Unverified , 10/10/17) Objective Last 24 Hour Vital Signs Date Time Temp Pulse Resp B/P (MAP) Pulse Ox O2 Delivery O2 Flow Rate FiO2 01/26/20 00:00 Mechanical Ventilator Mechanical Ventilator 01/25/20 23:00 62 23 100 Mechanical Ventilator 60 61 18 60 01/25/20 21:11 59 18 141/69 100 01/25/20 20:48 66 143/68 01/25/20 20:41 70 25 143/68 100 01/25/20 20:00 40 01/25/20 20:00 Mechanical Ventilator Mechanical Ventilator 01/25/20 20:00 98.1 69 24 146/72 (96) 100 01/25/20 20:00 63 01/25/20 18:52 66 24 60 01/25/20 18:44 141/64 01/25/20 18:44 62 141/64 01/25/20 16:00 40 01/25/20 16:00 98.2 62 18 141/64 (89) 100 01/25/20 15:32 62 01/25/20 15:25 65 18 60 01/25/20 13:50 137/69 01/25/20 12:00 97.9 62 18 137/69 (91) 100 01/25/20 12:00 40 01/25/20 11:48 61 01/25/20 10:51 58 14 100 Mechanical Ventilator 60 60 15 60 01/25/20 09:18 150/70 01/25/20 09:17 66 150/70 01/25/20 09:17 66 150/70 01/25/20 08:13 64 01/25/20 08:00 98.1 66 22 150/70 (96) 100 01/25/20 08:00 40 01/25/20 07:20 52 16 60 01/25/20 04:00 98.2 65 18 153/70 (97) 100 01/25/20 04:00 40 12/12/20 04:00 63 01/25/20 04:00 Mechanical Ventilator Mechanical Ventilator 01/25/20 03:07 62 16 60 Intake and Output 01/25/20 01/26/20 19:00 07:00 Intake Total 710 ml 105 ml Output Total 200 ml Balance 510 ml 105 ml Free Water 290 ml Tube Feeding 420 ml 105 ml Output Urine Total 200 ml Laboratory Tests 01/25/20 00:41: POC Whole Blood Glucose 83 01/25/20 05:13: POC Whole Blood Glucose 86 01/25/20 07:40: White Blood Count 9.2, Red Blood Count 2.61L, Hemoglobin 7.3L, Hematocrit 21.1L, Mean Corpuscular Volume 81, Mean Corpuscular Hemoglobin 27.9, Mean Corpuscular Hemoglobin Concent 34.6, Red Cell Distribution Width 15.8H, Platelet Count 157, Mean Platelet Volume 6.4L, Neutrophils (%) (Auto) , Lymphocytes (%) (Auto) , Monocytes (%) (Auto) , Eosinophils (%) (Auto) , Basophils (%) (Auto) , Differential Total Cells Counted 100, Neutrophils % (Manual) 82H, Lymphocytes % (Manual) 14L, Monocytes % (Manual) 4, Eosinophils % (Manual) 0, Basophils % (Manual) 0, Band Neutrophils 0, Platelet Estimate Adequate, Platelet Morphology Normal, Hypochromasia 1+, Anisocytosis 1+, Sodium Level 142, Potassium Level 4.0, Chloride Level 105, Carbon Dioxide Level 25, Anion Gap 12, Blood Urea Nitrogen 99H, Creatinine 3.6H, Estimat Glomerular Filtration Rate 13.6, Glucose Level 89, Calcium Level 7.8L, Phosphorus Level 4.6, Magnesium Level 2.5H, Total Bilirubin 0.5, Aspartate Amino Transf (AST/SGOT) 33, Alanine Aminotransferase (ALT/SGPT) 14, Alkaline Phosphatase 235H, C-Reactive Protein, Quantitative 21.0H , Pro-B-Type Natriuretic Peptide > 40538L, Total Protein 6.4, Albumin 1.9L, Globulin 4.5, Albumin/Globulin Ratio 0.4L, Amylase Level 363H, Lipase > 2000H Height (Feet): 5 Height (Inches): 6.00 Weight (Pounds): 150 General Appearance: WD/WN, no apparent distress, lethargic, confused EENT: PERRL/EOMI, normal ENT inspection, TMs normal Neck: non-tender, supple Cardiovascular: normal rate, regular rhythm, regularly irregular Respiratory/Chest: no respiratory distress, no accessory muscle use, respiratory distress, decreased breath sounds, rhonchi - bilaterally Abdomen: normal bowel sounds, non tender, soft, no organomegaly, no mass Neurologic: no motor/sensory deficits, alert, responsive Skin: warm/dry Assessment/Plan Status Narrative Patient is awake alert febrile hemodynamically stable her crying has stopped sleep facial expression is peaceful the first time a leukocytosis now which normal Her stable but she is still on meropenem 1 g every 8 patient is dramatically improved since admission until now laboratory tests will be done in a.m. the Lucas Paul MD, MD Jan 26, 2020 00:25
--- NOTE | 2020-01-26 01:30 | NUR ---
NURSE NOTES: Temperature of 99.1. Cooling measures initiated. Will monitor.
--- NOTE | 2020-01-26 02:32 | Cardiology Progress Note ---
Subjective DATE OF SERVICE: Jan 25, 2020 Remains in atrial fibrillation; rates controlled. Occasional PVC's - non- sustained BP parameters in high normal range. Remains off amiodarone Full vent support via trach s/p left thorocentesis 01/22/20 Low hemoglobin; on epogen Objective Last 24 Hour Vital Signs Date Time Temp Pulse Resp B/P (MAP) Pulse Ox O2 Delivery O2 Flow Rate FiO2 01/26/20 00:00 99.1 62 20 156/79 (104) 100 01/26/20 00:00 Mechanical Ventilator Mechanical Ventilator 01/25/20 23:00 62 23 100 Mechanical Ventilator 60 61 18 60 01/25/20 21:11 59 18 141/69 100 01/25/20 20:48 66 143/68 01/25/20 20:41 70 25 143/68 100 01/25/20 20:00 40 01/25/20 20:00 Mechanical Ventilator Mechanical Ventilator 01/25/20 20:00 98.1 69 24 146/72 (96) 100 01/25/20 20:00 63 01/25/20 18:52 66 24 60 01/25/20 18:44 141/64 01/25/20 18:44 62 141/64 01/25/20 16:00 40 01/25/20 16:00 98.2 62 18 141/64 (89) 100 01/25/20 15:32 62 01/25/20 15:25 65 18 60 01/25/20 13:50 137/69 01/25/20 12:00 97.9 62 18 137/69 (91) 100 01/25/20 12:00 40 01/25/20 11:48 61 01/25/20 10:51 58 14 100 Mechanical Ventilator 60 60 15 60 01/25/20 09:18 150/70 01/25/20 09:17 66 150/70 01/25/20 09:17 66 150/70 01/25/20 08:13 64 01/25/20 08:00 98.1 66 22 150/70 (96) 100 01/25/20 08:00 40 01/25/20 07:20 52 16 60 01/25/20 04:00 98.2 65 18 153/70 (97) 100 01/25/20 04:00 40 01/25/20 04:00 63 01/25/20 04:00 Mechanical Ventilator Mechanical Ventilator 01/25/20 03:07 62 16 60 ROS: unchanged for 01/17/20 HEENT: Mechanically Ventilated, Thick Trach secretions RHYTHM: Afib LUNGS: bilateral rhonchi CARDIAC: normal S1 and S2, irregularly irregular ABDOMEN: normal bowel sounds, non tender, soft, G-Tube intact EXTREMITIES: normal inspection, trace edema Laboratory Tests Test 01/25/20 05:13 01/25/20 07:40 POC Whole Blood Glucose 86 MG/DL (74-106) White Blood Count 9.2 K/UL (4.8-10.8) Red Blood Count 2.61 M/UL (4.20-5.40) L Hemoglobin 7.3 G/DL (12.0-16.0) L Hematocrit 21.1 % (37.0-47.0) L Mean Corpuscular Volume 81 FL (80-99) Mean Corpuscular Hemoglobin 27.9 PG (27.0-31.0) Mean Corpuscular Hemoglobin Concent 34.6 G/DL (32.0-36.0) Red Cell Distribution Width 15.8 % (11.6-14.8) H Platelet Count 157 K/UL (150-450) Mean Platelet Volume 6.4 FL (6.5-10.1) L Neutrophils (%) (Auto) % (45.0-75.0) Lymphocytes (%) (Auto) % (20.0-45.0) Monocytes (%) (Auto) % (1.0-10.0) Eosinophils (%) (Auto) % (0.0-3.0) Basophils (%) (Auto) % (0.0-2.0) Differential Total Cells Counted 100 Neutrophils % (Manual) 82 % (45-75) H Lymphocytes % (Manual) 14 % (20-45) L Monocytes % (Manual) 4 % (1-10) Eosinophils % (Manual) 0 % (0-3) Basophils % (Manual) 0 % (0-2) Band Neutrophils 0 % (0-8) Platelet Estimate Adequate Platelet Morphology Normal Hypochromasia 1+ Anisocytosis 1+ Sodium Level 142 MMOL/L (136-145) Potassium Level 4.0 MMOL/L (3.5-5.1) Chloride Level 105 MMOL/L (98-107) Carbon Dioxide Level 25 MMOL/L (21-32) Anion Gap 12 mmol/L (5-15) Blood Urea Nitrogen 99 mg/dL (7-18) H Creatinine 3.6 MG/DL (0.55-1.30) H Estimat Glomerular Filtration Rate 13.6 mL/min (>60) Glucose Level 89 MG/DL (74-106) Calcium Level 7.8 MG/DL (8.5-10.1) L Phosphorus Level 4.6 MG/DL (2.5-4.9) Magnesium Level 2.5 MG/DL (1.8-2.4) H Total Bilirubin 0.5 MG/DL (0.2-1.0) Aspartate Amino Transf (AST/SGOT) 33 U/L (15-37) Alanine Aminotransferase (ALT/SGPT) 14 U/L (12-78) Alkaline Phosphatase 235 U/L (46-116) H C-Reactive Protein, Quantitative 21.0 mg/dL (0.00-0.90) H Pro-B-Type Natriuretic Peptide > 81080 pg/mL (0-125) H Total Protein 6.4 G/DL (6.4-8.2) Albumin 1.9 G/DL (3.4-5.0) L Globulin 4.5 g/dL Albumin/Globulin Ratio 0.4 (1.0-2.7) L Amylase Level 363 U/L (25-115) H Lipase > 2000 U/L (73-393) H Assessment/Plan Assessment/Plan Chronic respiratory failure with trach Severe sepsis PAFib with rapid ventric response - now rate controlled Ischemic cardiomyopathy - hx CABG and s/p NSTEMI in Dec 2019. Conduction system disease of the heart Hx of permanent pacemaker explant Acute on chronic systolic and diastolic CHF Pleural effusion - s/p left thorocentesis Anemia of chronic kidney disease and chronic disease Hypertension/HHD with rising BP range. Continue beta flori titration Anti-failure and anti-anginal regimen with titration; nitrates advanced. Vent support Abx per ID Continuous cardiac monitoring Continue Epo/Iron rx Transfuse PRBC's for further drop of hemoglobin Deni Willams MD Jan 26, 2020 02:32
[2020-01-26 04:00] VITALS: BP 152/79
[2020-01-26] MEDS: LORazepam Inj 2mg/ml 1ml IV SCH ×3 (05:20→21:32)
--- NOTE | 2020-01-26 06:25 | NUR ---
NURSE NOTES: Observed continuous hematuria and anuria of 200mL. Copious secretions and leaking of g-tube. Dr. Mccauley made aware. Pt still unstable for CT Abdomen. Dr. Dong ordered PT/PTT. Pt in stable condition.
--- NOTE | 2020-01-26 07:00 | NUR ---
RESPIRATORY NOTE: PT RECEIVED STABLE ON CMV WITH CURRENT SETTINGS: AC/VC 14, 500, 60%, +5. AIRWAY IS MIDLINE SECURE AND PATENT. ALARMS ARE ON AND AUDIBLE. VENT CIRCUIT IS SECURE AND OUT OF THE WAY. NO S/S OF RESPIRATORY DISTRESS NOTED AT THIS TIME. WILL CONTINUE TO MONITOR.
--- NOTE | 2020-01-26 07:30 | NUR ---
NURSE HAND-OFF REPORT: Important Events on Shift: Still Pending CT Ab. Leaking GT site. Hematuria Patient Status: Stable Diet: Nepro Pending Orders: Pending Results/Labs: Pending MD notification: Latest Vital Signs: Temperature 98.1 , Pulse 62 , B/P 152 /79 , Respiratory Rate 21 , O2 SAT 100 , Mechanical Ventilator, O2 Flow Rate . Vital Sign Comment: WNL EKG Rhythm: Sinus Rhythm Rhythm change?: N MD Notified?: Gabriel Willams MD Response: Order Received& Read Back Latest Chavarria Fall Score: 70 Fall Risk: High Risk Safety Measures: Call light Within Reach, Bed Alarm Zone 1, Side Rails Side Rails x3, Bed position Low and Locked. Fall Precautions: Yellow Socks Report given to ERASMO Valencia.
--- NOTE | 2020-01-26 07:31 | NUR ---
NURSE NOTES: Received report from Charo ZIMMERMAN.
--- NOTE | 2020-01-26 07:49 | NUR ---
NURSE NOTES: Pt. in bed, obtunded, occasionally opens eyes. No sign of distress. Mech. vent. dependent with setting AC14/VT500/Fi O2 of 50%/P5. No grimacing noted. F/C in placed patent/intact draining raul colored urine noted with sediments. HOB elevated at all times. On GTF Nepro 35cc/hr feeding tolerating well. No n/v noted. IV at left wrist #[id number]. in placed patent/intact. Charlie cath. at left femoral in placed for PRN dialysis. Bed in low position, locked. Call light within reach. Will cont. to monitor.
[2020-01-26 08:00] VITALS: BP 152/72
[2020-01-26 08:32] LABS: HEMATOCRIT 21.9 % (37.0-47.0); HEMOGLOBIN 7.6 G/DL (12.0-16.0); MEAN CORPUSCULAR VOLUME 82 FL (80-99); PLATELET COUNT 185 K/UL (150-450); RED BLOOD COUNT 2.66 M/UL (4.20-5.40); RED CELL DISTRIBUTION WIDTH 15.6 % (11.6-14.8); WHITE BLOOD COUNT 10.5 K/UL (4.8-10.8)
[2020-01-26 08:34] LABS: INR 1.2 (0.9-1.1)
[2020-01-26 08:37] LABS: ALBUMIN/GLOBULIN RATIO 0.4 (1.0-2.7); BILIRUBIN,TOTAL 0.5 MG/DL (0.2-1.0); PHOSPHORUS 5.6 MG/DL (2.5-4.9); POTASSIUM 4.3 MMOL/L (3.5-5.1)
[2020-01-26] MEDS: Aspirin Baby 81mg GT SCH (09:00)
--- NOTE | 2020-01-26 09:09 | Pulmonology Progress Note ---
Subjective ROS Limited/Unobtainable: Yes Interval Events: Doing well; Constitutional: Reports: no symptoms HEENT: Repors: no symptoms Respiratory: Reports: no symptoms Cardiovascular: Reports: no symptoms Gastrointestinal/Abdominal: Reports: no symptoms Allergies: Coded Allergies: No Known Allergies (Unverified , 10/10/17) All Systems: reviewed and negative except above Objective Last 24 Hour Vital Signs Date Time Temp Pulse Resp B/P (MAP) Pulse Ox O2 Delivery O2 Flow Rate FiO2 01/26/20 08:00 98.1 77 23 152/72 (98) 99 01/26/20 05:20 62 100 01/26/20 04:00 98.1 68 21 152/79 (103) 100 01/26/20 04:00 Mechanical Ventilator Mechanical Ventilator 01/26/20 04:00 40 01/26/20 04:00 65 01/26/20 03:03 68 19 60 01/26/20 00:00 99.1 62 20 156/79 (104) 100 01/26/20 00:00 Mechanical Ventilator Mechanical Ventilator 01/25/20 23:00 62 23 100 Mechanical Ventilator 60 61 18 60 01/25/20 21:11 59 18 141/69 100 01/25/20 20:48 66 143/68 01/25/20 20:41 70 25 143/68 100 01/25/20 20:00 40 01/25/20 20:00 Mechanical Ventilator Mechanical Ventilator 01/25/20 20:00 98.1 69 24 146/72 (96) 100 01/25/20 20:00 63 01/25/20 18:52 66 24 60 01/25/20 18:44 141/64 01/25/20 18:44 62 141/64 01/25/20 16:00 40 01/25/20 16:00 98.2 62 18 141/64 (89) 100 01/25/20 15:32 62 01/25/20 15:25 65 18 60 01/25/20 13:50 137/69 01/25/20 12:00 97.9 62 18 137/69 (91) 100 01/25/20 12:00 40 01/25/20 11:48 61 01/25/20 10:51 58 14 100 Mechanical Ventilator 60 60 15 60 01/25/20 09:18 150/70 01/25/20 09:17 66 150/70 01/25/20 09:17 66 150/70 Intake and Output 01/25/20 01/26/20 19:00 07:00 Intake Total 710 ml 445 ml Output Total 200 ml 250 ml Balance 510 ml 195 ml Free Water 290 ml 0 ml Tube Feeding 420 ml 385 ml Blood Product 60 ml Output Urine Total 200 ml 250 ml General Appearance: no acute distress HEENT: normocephalic, other - trach Respiratory: chest wall non-tender, other - coarse lung sounds Cardiovascular: normal rate, regular rhythm Abdomen: soft, non tender Genitourinary: other - Norman Extremities: other - trace edema Laboratory Tests 01/26/20 06:20: White Blood Count 10.5, Red Blood Count 2.66L, Hemoglobin 7.6L, Hematocrit 21.9L , Mean Corpuscular Volume 82, Mean Corpuscular Hemoglobin 28.7, Mean Corpuscular Hemoglobin Concent 34.8, Red Cell Distribution Width 15.6H, Platelet Count 185, Mean Platelet Volume 7.1, Neutrophils (%) (Auto) , Lymphocytes (%) (Auto) , Monocytes (%) (Auto) , Eosinophils (%) (Auto) , Basophils (%) (Auto) , Neutrophils % (Manual) [Pending], Lymphocytes % (Manual) [Pending], Platelet Estimate [Pending], Platelet Morphology [Pending], Prothrombin Time 13.4H, Prothromb Time International Ratio 1.2H, Activated Partial Thromboplast Time 32, Sodium Level 140, Potassium Level 4.3, Chloride Level 103, Carbon Dioxide Level 23, Anion Gap 14, Blood Urea Nitrogen 118H, Creatinine 4.0H, Estimat Glomerular Filtration Rate 12.0, Glucose Level 92, Calcium Level 8.0L, Phosphorus Level 5.6H, Total Bilirubin 0.5, Aspartate Amino Transf (AST/SGOT) 31, Alanine Aminotransferase (ALT/SGPT) 14, Alkaline Phosphatase 232H, Total Protein 6.6, Albumin 2.0L, Globulin 4.6, Albumin/Globulin Ratio 0.4L Current Medications Medications (Trade) Dose Ordered Sig/Penny Route PRN Reason Start Time Stop Time Status Last Admin Dose Admin Acetaminophen (Tylenol) 500 mg Q6H PRN GT FEVER 01/21/20 20:45 02/20/20 20:44 01/24/20 17:13 Amlodipine Besylate (Norvasc) 5 mg BID GT 01/22/20 18:00 02/20/20 15:44 01/25/20 18:44 Aspirin (ASA) 81 mg DAILY GT 01/20/20 09:00 03/05/20 08:59 01/25/20 09:17 Atorvastatin Calcium (Lipitor) 10 mg BEDTIME GT 01/17/20 21:00 04/16/20 20:59 01/25/20 20:48 Barium Sulfate (Readi-Cat 2) 450 ml NOW PRN ORAL Radiology Procedure 01/24/20 10:45 01/26/20 10:44 Chlorhexidine Gluconate (Ling-Hex 2%) 1 applic DAILY@2000 TOPIC 01/17/20 20:00 04/16/20 19:59 01/25/20 20:49 Dextrose (Dextrose 50%) 25 ml Q30M PRN IV Hypoglycemia 01/15/20 22:15 04/14/20 22:14 Dextrose (Dextrose 50%) 50 ml Q30M PRN IV Hypoglycemia 01/15/20 22:15 04/14/20 22:14 01/22/20 17:54 Epoetin Gelacio (Epoetin Gelacio(ESRD on dialysis)) 10,000 unit MON-MON-MON SUBQ 01/27/20 21:00 04/26/20 20:59 Iohexol (OMNIPAQUE-300 100ml) 100 ml NOW PRN INJ Radiology Procedure 01/24/20 10:45 01/26/20 10:44 Isosorbide Dinitrate (Isordil) 20 mg TID GT 01/25/20 09:00 02/19/20 08:59 01/25/20 18:44 Lansoprazole (Prevacid) 30 mg BID GT 01/19/20 18:00 02/18/20 17:59 01/25/20 18:44 Lorazepam (Ativan 2mg/ml 1ml) 0.5 mg EVERY 8 HOURS IV 01/23/20 22:00 01/30/20 21:59 01/25/20 20:41 Meropenem 500 mg/ Sodium Chloride 55 ml @ 110 mls/hr Q24H IVPB 01/22/20 10:30 01/27/20 10:29 01/25/20 11:10 Metoclopramide HCl (Reglan) 5 mg Q6H PRN IVP Nausea & Vomiting 01/15/20 22:15 02/14/20 22:14 Metoprolol Tartrate (Lopressor) 25 mg Q12HR ORAL 01/23/20 09:00 04/22/20 08:59 01/25/20 20:48 Tobramycin Sulfate (Nebcin) 300 mg Q12HRT INH 01/23/20 22:00 01/29/20 09:59 01/25/20 22:57 Zinc Oxide (Zinc Oxide) 1 applic TIDPRN PRN TOPIC diogenes GT 01/16/20 13:15 04/15/20 13:14 01/16/20 14:55 Assessment/Plan Assessment/Plan 1. Large left effusion. - S/p thoracentesis; CXR better 2. Chronic respiratory failure. - on trach, current setting: AC 14, VT 500, FiO2 50%, PEEP 5 - Cont AC mode - Currently saturating at 98% 3. Sepsis. - WBC 26.3 -> 20.5 4. Anemia - s/p 1 unit pRBC - Hgb 7 -> 9 -> 8.6 s/p HD Broad-spectrum antibiotics. Pulmonary hygiene. DVT and GI prophylaxes. We will follow carefully. TIme spent for this case was approximately 31 minutes Elijah Stephen MD Jan 26, 2020 09:09
[2020-01-26] MEDS: Metoprolol Tartrate 12.5mg TAB ORAL SCH ×2 (09:20→21:31)
--- NOTE | 2020-01-26 10:48 | General Progress Note ---
Subjective ROS Limited/Unobtainable: No Allergies: Coded Allergies: No Known Allergies (Unverified , 10/10/17) Objective Last 24 Hour Vital Signs Date Time Temp Pulse Resp B/P (MAP) Pulse Ox O2 Delivery O2 Flow Rate FiO2 01/26/20 09:21 152/72 01/26/20 09:21 77 152/72 01/26/20 09:20 77 152/72 01/26/20 08:00 40 01/26/20 08:00 Mechanical Ventilator Mechanical Ventilator 01/26/20 08:00 98.1 77 23 152/72 (98) 99 01/26/20 05:20 62 100 01/26/20 04:00 98.1 68 21 152/79 (103) 100 01/26/20 04:00 Mechanical Ventilator Mechanical Ventilator 01/26/20 04:00 40 01/26/20 04:00 65 01/26/20 03:03 68 19 60 01/26/20 00:00 99.1 62 20 156/79 (104) 100 01/26/20 00:00 Mechanical Ventilator Mechanical Ventilator 01/25/20 23:00 62 23 100 Mechanical Ventilator 60 61 18 60 01/25/20 21:11 59 18 141/69 100 01/25/20 20:48 66 143/68 01/25/20 20:41 70 25 143/68 100 01/25/20 20:00 40 01/25/20 20:00 Mechanical Ventilator Mechanical Ventilator 01/25/20 20:00 98.1 69 24 146/72 (96) 100 01/25/20 20:00 63 01/25/20 18:52 66 24 60 01/25/20 18:44 141/64 01/25/20 18:44 62 141/64 01/25/20 16:00 40 01/25/20 16:00 98.2 62 18 141/64 (89) 100 01/25/20 15:32 62 01/25/20 15:25 65 18 60 01/25/20 13:50 137/69 01/25/20 12:00 97.9 62 18 137/69 (91) 100 01/25/20 12:00 40 01/25/20 11:48 61 01/25/20 10:51 58 14 100 Mechanical Ventilator 60 60 15 60 Intake and Output 01/25/20 01/26/20 19:00 07:00 Intake Total 710 ml 445 ml Output Total 200 ml 250 ml Balance 510 ml 195 ml Free Water 290 ml 0 ml Tube Feeding 420 ml 385 ml Blood Product 60 ml Output Urine Total 200 ml 250 ml Laboratory Tests 01/26/20 06:20: White Blood Count 10.5, Red Blood Count 2.66L, Hemoglobin 7.6L, Hematocrit 21.9L , Mean Corpuscular Volume 82, Mean Corpuscular Hemoglobin 28.7, Mean Corpuscular Hemoglobin Concent 34.8, Red Cell Distribution Width 15.6H, Platelet Count 185, Mean Platelet Volume 7.1, Neutrophils (%) (Auto) , Lymphocytes (%) (Auto) , Monocytes (%) (Auto) , Eosinophils (%) (Auto) , Basophils (%) (Auto) , Differential Total Cells Counted 100, Neutrophils % (Manual) 79H, Lymphocytes % (Manual) 18L, Monocytes % (Manual) 3, Eosinophils % (Manual) 0, Basophils % (Manual) 0, Band Neutrophils 0, Platelet Estimate Adequate, Platelet Morphology Normal, Hypochromasia 1+, Anisocytosis 1+, Prothrombin Time 13.4H, Prothromb Time International Ratio 1.2H, Activated Partial Thromboplast Time 32, Sodium Level 140, Potassium Level 4.3, Chloride Level 103, Carbon Dioxide Level 23, Anion Gap 14, Blood Urea Nitrogen 118H, Creatinine 4.0H, Estimat Glomerular Filtration Rate 12.0, Glucose Level 92, Calcium Level 8.0L, Phosphorus Level 5.6H, Total Bilirubin 0.5, Aspartate Amino Transf (AST/SGOT) 31, Alanine Aminotransferase (ALT/SGPT) 14, Alkaline Phosphatase 232H, Total Protein 6.6, Albumin 2.0L, Globulin 4.6, Albumin/Globulin Ratio 0.4L Height (Feet): 5 Height (Inches): 6.00 Weight (Pounds): 150 General Appearance: no apparent distress EENT: normal ENT inspection Neck: supple Cardiovascular: normal rate Respiratory/Chest: decreased breath sounds Abdomen: hypoactive bowel sounds Extremities: non-tender Assessment/Plan Problem List: (1) Hx of CABG ICD Codes: Z95.1 - Presence of aortocoronary bypass graft SNOMED: 322197430, 614677887 (2) History of tracheostomy ICD Codes: Z98.890 - Other specified postprocedural states SNOMED: 508039518, 714591657 (3) PEG (percutaneous endoscopic gastrostomy) status ICD Codes: Z93.1 - Gastrostomy status SNOMED: 651904472, 193242780 (4) S/P aortic dissection repair ICD Codes: Z98.890 - Other specified postprocedural states SNOMED: 954283197, 708896191 (5) Renal failure ICD Codes: N19 - Unspecified kidney failure SNOMED: 79144387, 682596706 (6) Anemia ICD Codes: D64.9 - Anemia, unspecified SNOMED: 347108964 Assessment/Plan: not stable for GI procedures ppi blood transfusion fu labs EGD when more stable GT topical care fu nephrology HD per nephrology repeat amylase and lipase GTF to [address] of abd and pelvic Inder Mccauley MD Jan 26, 2020 10:48
--- NOTE | 2020-01-26 10:56 | NUR ---
CASE MANAGEMENT:REVIEW 01/26/20 SI: SEPSIS. RENAL FAILURE. ANEMIA S/P 4 U TRACH/VENT 98.1 77 23 152/72 99% ON VENT SUPPORT W/40% FIO2 H/H-7.6/21.9 BUN+118 CR+4.0 IS: IV MEROPENEM Q24 TOBRAMYCIN INH Q12 NORVASC GT BID LOPRESSOR GT Q12 ISORDIL GT TID ASA GT QD PREVACID GT BID : STEP DOWN UNIT DCP: FROM [facility] PLAN: CT ABD SCHEDULE FOR HD TOMORROW EGD WHEN MORE STABLE
--- NOTE | 2020-01-26 11:04 | Surgery Progress Note ---
Surgery Progress Note Subjective Procedure Performed Left femoral temporary hemodialysis catheter insertion Additional Comments labs noted micro reviewed exam stable no n/v/f/c Objective Last 24 Hour Vital Signs Date Time Temp Pulse Resp B/P (MAP) Pulse Ox O2 Delivery O2 Flow Rate FiO2 01/26/20 09:21 152/72 01/26/20 09:21 77 152/72 01/26/20 09:20 77 152/72 01/26/20 08:00 40 01/26/20 08:00 Mechanical Ventilator Mechanical Ventilator 01/26/20 08:00 98.1 77 23 152/72 (98) 99 01/26/20 05:20 62 100 01/26/20 04:00 98.1 68 21 152/79 (103) 100 01/26/20 04:00 Mechanical Ventilator Mechanical Ventilator 01/26/20 04:00 40 01/26/20 04:00 65 01/26/20 03:03 68 19 60 01/26/20 00:00 99.1 62 20 156/79 (104) 100 01/26/20 00:00 Mechanical Ventilator Mechanical Ventilator 01/25/20 23:00 62 23 100 Mechanical Ventilator 60 61 18 60 01/25/20 21:11 59 18 141/69 100 01/25/20 20:48 66 143/68 01/25/20 20:41 70 25 143/68 100 01/25/20 20:00 40 01/25/20 20:00 Mechanical Ventilator Mechanical Ventilator 01/25/20 20:00 98.1 69 24 146/72 (96) 100 01/25/20 20:00 63 01/25/20 18:52 66 24 60 01/25/20 18:44 141/64 01/25/20 18:44 62 141/64 01/25/20 16:00 40 01/25/20 16:00 98.2 62 18 141/64 (89) 100 01/25/20 15:32 62 01/25/20 15:25 65 18 60 01/25/20 13:50 137/69 01/25/20 12:00 97.9 62 18 137/69 (91) 100 01/25/20 12:00 40 01/25/20 11:48 61 I&O Intake and Output 01/25/20 01/26/20 19:00 07:00 Intake Total 710 ml 445 ml Output Total 200 ml 250 ml Balance 510 ml 195 ml Free Water 290 ml 0 ml Tube Feeding 420 ml 385 ml Blood Product 60 ml Output Urine Total 200 ml 250 ml Dressing: saturated Cardiovascular: RSR Respiratory: decreased breath sounds Abdomen: non-tender, present bowel sounds Extremities: edema, no tenderness, no cyanosis Laboratory Tests Test 01/26/20 06:20 White Blood Count 10.5 K/UL (4.8-10.8) Red Blood Count 2.66 M/UL (4.20-5.40) L Hemoglobin 7.6 G/DL (12.0-16.0) L Hematocrit 21.9 % (37.0-47.0) L Mean Corpuscular Volume 82 FL (80-99) Mean Corpuscular Hemoglobin 28.7 PG (27.0-31.0) Mean Corpuscular Hemoglobin Concent 34.8 G/DL (32.0-36.0) Red Cell Distribution Width 15.6 % (11.6-14.8) H Platelet Count 185 K/UL (150-450) Mean Platelet Volume 7.1 FL (6.5-10.1) Neutrophils (%) (Auto) % (45.0-75.0) Lymphocytes (%) (Auto) % (20.0-45.0) Monocytes (%) (Auto) % (1.0-10.0) Eosinophils (%) (Auto) % (0.0-3.0) Basophils (%) (Auto) % (0.0-2.0) Differential Total Cells Counted 100 Neutrophils % (Manual) 79 % (45-75) H Lymphocytes % (Manual) 18 % (20-45) L Monocytes % (Manual) 3 % (1-10) Eosinophils % (Manual) 0 % (0-3) Basophils % (Manual) 0 % (0-2) Band Neutrophils 0 % (0-8) Platelet Estimate Adequate Platelet Morphology Normal Hypochromasia 1+ Anisocytosis 1+ Prothrombin Time 13.4 SEC (9.30-11.50) H Prothromb Time International Ratio 1.2 (0.9-1.1) H Activated Partial Thromboplast Time 32 SEC (23-33) Sodium Level 140 MMOL/L (136-145) Potassium Level 4.3 MMOL/L (3.5-5.1) Chloride Level 103 MMOL/L (98-107) Carbon Dioxide Level 23 MMOL/L (21-32) Anion Gap 14 mmol/L (5-15) Blood Urea Nitrogen 118 mg/dL (7-18) H Creatinine 4.0 MG/DL (0.55-1.30) H Estimat Glomerular Filtration Rate 12.0 mL/min (>60) Glucose Level 92 MG/DL (74-106) Calcium Level 8.0 MG/DL (8.5-10.1) L Phosphorus Level 5.6 MG/DL (2.5-4.9) H Total Bilirubin 0.5 MG/DL (0.2-1.0) Aspartate Amino Transf (AST/SGOT) 31 U/L (15-37) Alanine Aminotransferase (ALT/SGPT) 14 U/L (12-78) Alkaline Phosphatase 232 U/L (46-116) H Total Protein 6.6 G/DL (6.4-8.2) Albumin 2.0 G/DL (3.4-5.0) L Globulin 4.6 g/dL Albumin/Globulin Ratio 0.4 (1.0-2.7) L Plan Problems: (1) Dehydration (2) Acidosis (3) Depression (4) Pleural effusion (5) Respiratory failure (6) Schizophrenia (7) Hypoxia (8) UTI (urinary tract infection) (9) Pneumonia (10) NSTEMI (non-ST elevated myocardial infarction) (11) Tracheostomy in place (12) Feeding by G-tube (13) JAVIER (acute kidney injury) (14) Acute encephalopathy (15) Sacral decubitus ulcer, stage IV (16) Chronic respiratory failure (17) Ascites (18) Bacteremia (19) Hypernatremia (20) Proteinuria (21) Electrolyte imbalance (22) ACS (acute coronary syndrome) (23) Aortic dissection, thoracic (24) Respiratory failure, acute and chronic (25) JAVIER (acute kidney injury) (26) Abrasion of lip, initial encounter (27) COPD with exacerbation (28) Elevated alkaline phosphatase level (29) Renal failure (ARF), acute on chronic (30) HCAP (healthcare-associated pneumonia) (31) GT CLOGGED (32) Elevated lipase (33) Pancreatitis (34) Elevated troponin (35) Hypokalemia (36) Hyponatremia (37) Anemia (38) Renal failure (39) ARF (acute renal failure) (40) Pacemaker (41) Sepsis Assessment & Plan: leukocytosis anemia on HD renal insufficiency wounds addressed pt presented on admission with Tracheostomy ,GT and Multiple Pressure Injuries. Skin assessment of skin under tracheal collar without evidence of skin breakdown. Peristomal GT site excoriated.Moderate amt of dark red sanguineous exudate. Full Thickness Sacral Pressure Injury with undermined borders (L)9 cm x (W)12cm x (D)1.8cm,Undermining clockwise8-9 by 2.2cm @1o'clock,undermining clockwise 1-4 by 1.9 @ 9'oclock Scattered necrotic tissue within wound bed. Borders are loose and necrotic with marginal erythema to outer perimeter of wound. NO elevation in skin temp noted periwound. Wound is malodorous. Small amt Brown exudate noted. Resolving Pressure Injury L Ischium(L)1.5cm x (W)1.5cm. Base of wound is 80% pink epithelial with an area that is moist and pink. NO odor or exudate noted. Bilat foot-drop noted. L Heel is boggy with non-blanchable erythema(L)4cm x (W)4cm. R heel is boggy with non-Blanchable erythema(L)5cm x (W)6cm. Tx.Plan: Cleanse sacral wound with Dakin's 0.125% annie. Loosely pack with Dakin's moistened Kerlix(Attention to undermined borders). Apply Moisture Barrier Paste periwound. Cover with Optifoam drsg. Change Daily and PRN. Apply Cavilon Skin Barrier to R and L Hels. Cover each heel with Optifoam drsg. Change every 7 days and prn. Reposition at least every 2hours or as tolerated. Off-load heels with Pillow. APM/JENNIFER MAttress overlay DAILY ESTIMATED NEEDS: Needs based on Critical care, wound, renal dysfunction 56 kg abw 28-33 kcals/kg [id number] total kcals W/ HD (1.5-2.0) g protein/kg 84-112 g total protein Fluid per MD mL/kg . total fluid mLs NUTRITION DIAGNOSIS: * Swallowing difficulty R/T dysphagia, respiratory status as evidenced by vent dep via trach, GT Dep. * Increase kcal and pro needs r/t wound healing, renal dysfunction as evidenced by admitted w/ large, advanced sacral wound, previously stage 4, pending eval, admitted w/ JAVIER, pending HD. CURRENT TF:NPO ENTERAL NUTRITION RECOMMENDATIONS: Nepro @ 40ml/hr x 24 hrs + Prosource 1pkt QD to provide 960ml, 1728kcal, 78g+11g prot, 698ml free water * As medically appropriate, initiate TF on Nepro, rec goal rate fo 40ml/hr x 24 hrs * Add Prosource 1pkt QD to better meet increased protein needs (additional 11g prot) * Water flush per MD/ HOB over 30 degrees ADDITIONAL RECOMMENDATIONS: * Per SNF in NOV 2019: HT=63"/ Rec daily calibrated bedscale wt * Monitor for continuity of HD: non-tunneled cath placement ordered * Monitor lytes and renal fxn for improvement (Na low, K and phos elevated) * Wound care: add Nephrovite x 1, ZnSO4 220mg QD x 10 days Reynaldo BID via PEG (mix w/ 2-4 oz water) * Monitor BG closely for hypoglycemia while NPO (h/o DM, on Nacl 3% to correct hyponatremia, consider accuchecks) (42) Hyponatremia Lane Saavedra Jan 26, 2020 11:04
[2020-01-26] MEDS: Meropenem 500 MG in NS 55 ML IVPB SCH (11:11)
[2020-01-26] MEDS: Tobramycin for inhalation INH SCH ×2 (11:27→22:49)
--- NOTE | 2020-01-26 11:58 | NUR ---
NURSE NOTES: Seen by Dr. Dong. Notified MD regarding pt. gt site secretion colored dark tarry colored and he ordered C&S and also ordered CBC, CMP in A.M. Order noted and carried out.
[2020-01-26 12:00] VITALS: BP 154/104
--- NOTE | 2020-01-26 12:22 | General Progress Note ---
Subjective Constitutional: Reports: no symptoms HEENT: Reports: no symptoms Cardiovascular: Reports: no symptoms Respiratory: Reports: no symptoms Gastrointestinal/Abdominal: Reports: no symptoms Genitourinary: Reports: no symptoms Neurologic/Psychiatric: Reports: tremors Endocrine: Reports: no symptoms Hematologic/Lymphatic: Reports: no symptoms Allergies: Coded Allergies: No Known Allergies (Unverified , 10/10/17) Objective Last 24 Hour Vital Signs Date Time Temp Pulse Resp B/P (MAP) Pulse Ox O2 Delivery O2 Flow Rate FiO2 01/26/20 11:23 63 29 100 60 61 15 01/26/20 09:21 152/72 01/26/20 09:21 77 152/72 01/26/20 09:20 77 152/72 01/26/20 08:00 40 01/26/20 08:00 Mechanical Ventilator Mechanical Ventilator 01/26/20 08:00 98.1 77 23 152/72 (98) 99 01/26/20 07:54 67 01/26/20 07:00 68 22 60 01/26/20 05:20 62 100 01/26/20 04:00 98.1 68 21 152/79 (103) 100 01/26/20 04:00 Mechanical Ventilator Mechanical Ventilator 01/26/20 04:00 40 01/26/20 04:00 65 01/26/20 03:03 68 19 60 01/26/20 00:00 99.1 62 20 156/79 (104) 100 01/26/20 00:00 Mechanical Ventilator Mechanical Ventilator 01/25/20 23:00 62 23 100 Mechanical Ventilator 60 61 18 60 01/25/20 21:11 59 18 141/69 100 01/25/20 20:48 66 143/68 01/25/20 20:41 70 25 143/68 100 01/25/20 20:00 40 01/25/20 20:00 Mechanical Ventilator Mechanical Ventilator 01/25/20 20:00 98.1 69 24 146/72 (96) 100 01/25/20 20:00 63 01/25/20 18:52 66 24 60 01/25/20 18:44 141/64 01/25/20 18:44 62 141/64 01/25/20 16:00 40 01/25/20 16:00 98.2 62 18 141/64 (89) 100 01/25/20 15:32 62 01/25/20 15:25 65 18 60 01/25/20 13:50 137/69 Intake and Output 01/25/20 01/26/20 19:00 07:00 Intake Total 710 ml 445 ml Output Total 200 ml 250 ml Balance 510 ml 195 ml Free Water 290 ml 0 ml Tube Feeding 420 ml 385 ml Blood Product 60 ml Output Urine Total 200 ml 250 ml Laboratory Tests 01/26/20 06:20: White Blood Count 10.5, Red Blood Count 2.66L, Hemoglobin 7.6L, Hematocrit 21.9L , Mean Corpuscular Volume 82, Mean Corpuscular Hemoglobin 28.7, Mean Corpuscular Hemoglobin Concent 34.8, Red Cell Distribution Width 15.6H, Platelet Count 185, Mean Platelet Volume 7.1, Neutrophils (%) (Auto) , Lymphocytes (%) (Auto) , Monocytes (%) (Auto) , Eosinophils (%) (Auto) , Basophils (%) (Auto) , Differential Total Cells Counted 100, Neutrophils % (Manual) 79H, Lymphocytes % (Manual) 18L, Monocytes % (Manual) 3, Eosinophils % (Manual) 0, Basophils % (Manual) 0, Band Neutrophils 0, Platelet Estimate Adequate, Platelet Morphology Normal, Hypochromasia 1+, Anisocytosis 1+, Prothrombin Time 13.4H, Prothromb Time International Ratio 1.2H, Activated Partial Thromboplast Time 32, Sodium Level 140, Potassium Level 4.3, Chloride Level 103, Carbon Dioxide Level 23, Anion Gap 14, Blood Urea Nitrogen 118H, Creatinine 4.0H, Estimat Glomerular Filtration Rate 12.0, Glucose Level 92, Calcium Level 8.0L, Phosphorus Level 5.6H, Total Bilirubin 0.5, Aspartate Amino Transf (AST/SGOT) 31, Alanine Aminotransferase (ALT/SGPT) 14, Alkaline Phosphatase 232H, Total Protein 6.6, Albumin 2.0L, Globulin 4.6, Albumin/Globulin Ratio 0.4L Height (Feet): 5 Height (Inches): 6.00 Weight (Pounds): 150 General Appearance: no apparent distress, alert EENT: normal ENT inspection Neck: normal alignment, supple Cardiovascular: normal rate, regular rhythm, no gallop/murmur, no JVD Respiratory/Chest: no respiratory distress, no accessory muscle use, decreased breath sounds Abdomen: normal bowel sounds, non tender, soft, no organomegaly, no mass Extremities: non-tender Neurologic: alert, other - Persistent tremor low amplitude affecting the left upper extremity left upper right upper extremity and right lower extremity Skin: warm/dry Assessment/Plan Status Narrative Patient is awake alert afebrile hemodynamically stable there is eye contact no verbal response and sometimes smiles she is afebrile and WBC now are normal tobramycin meropenem will regimen she is now more than 2 days without leukocytosis she did develop unexplained persistent crying that was resolved by Ativan 0.5 mg q. 8 Resolved but the tremors it was described before did not resolve the tremor is not seizure the patient is fully conscious during the time that the Ativan was given at 0.5 mg dose the tremor resolved as well now the patient is not crying but the tremor persists and Ativan was DC'd yesterday we will try 0.25 mg IV push q. 8 the last infectious disease culture not involved study of positive blood cultures and Gram stain of pleural fluid are all negative repeat laboratory tests will be done in a.. Lucas Canales MD, MD Jan 26, 2020 12:22
--- NOTE | 2020-01-26 13:57 | Infectious Diseases Prog Note ---
Assessment/Plan 49yo F with: AF Sepsis Leukocytosis Hypoxia on vent Pneumonia c/b L pleural effusion (recurrent, prior determined to be transudative) - s/p thora 01/21, 1050cc removed Volume overload, BNP >35,0000, likely 2/2 progressive CKD --> ESRD ?Pancreatitis, Lipase >2000 Acute anemia to 5s CONS bacteremia, ?contaminant Aflutter w/ RVR 01/13 BCx 2/2 +S. epi COVID PCR neg Flu neg CXR: Large left pleural effusion. Bilateral interstitial and airspace infiltrates versus edema MRSA nares neg 01/16 BCx NTD 01/17 BCx / +Staph auricularis (skin colonizer) 01/18 Resp cx +MDR CRE PsA (S-gent) 01/18 C.dif neg 01/18 CXR: Similar opacification of the left hemithorax likely representing combination of pleural effusion with atelectasis versus pneumonia/edema. Decreased but persistent hazy opacity throughout the right lung may represent edema versus infectious/inflammatory process. 01/20 BCx NTD 01/21 L thora 1050 cc removed, cx NTD JAVIER on CKD On previous admission Sep-Oct 2019 required HD for short period Going to start HD this admission again R/o COVID 01/14 COVID PCR neg 12/29 neg at SNF per report H/o UTI 11/27 u/a wbc 30-40, nit neg, leuk +3; ucx ESBL P. mirablis, ESBL M. morganii 09/15/19 u/a wbc tnct, nit neg, leuk +3; ucx >100k MDR P. stuarti (S C eftriaxone, Meropenem) 10/07 u/a wbc tnct, nit neg, leuk ; ucx >100k VRE 10/15/19 u/a wbc tnct; ucx >100k ESBL P. stuarti (S ertapenem, aztreonam) H/o transudative pleural effusion 11/28 Sp Thora (w: 169, PMN: 2%, L: 49% , LDH: 57, prot 2.5); cx Neg H/o PNA 10/15/19 Resp cx ESBL P. mirabilis, MDR P.a. (S only to Gent) 09/22 Resp cx + MDR PsA (S-gent; I-colistin; R-levofloxacin, Zosyn, angelo) 09/16/19 Sp cx ESBL P. mirablis H/o PPM site (pocket) infection and pocket abscess 2ry to S. epi-11/2018, sp >6weeks IV vancomycin 11/27 SP ABBIE: no evidence for vegetation on any of the valves 11/26/18 SP PPM removal: OR findings:The fibrous capsule enclosing the generator was then opened and there was a [id number] amount of yellowish fluid drainage. The generator was then removed.Atrial and ventricular leads were detached. The necrotic tissue of the pocket was then removed and the pocket was flushed with an antibiotic solution. Capsule, wound tissue and lead tip cx: Neg 2d echo: no vegetation seen US chest: 4.6 x 3.4 x 0.9 cm hypoechoic/anechoic area overlying left chest pacemaker power pack. This could represent either a discrete fluid collection or a focal area of very edematous tissue. Infected fluid pocket also possible. 11/18 Bcx 3/ S. epi; 11/20 Bcx neg; 11/24 Bcx Neg; 11/27 Bcx Neg CAD s/p CABG GERD/gastritis Afib HTN Dysphagia sp GT Aortic dissection s/p repair 2017 S/p PPM Parkinson's Disease Schizophrenia Anxiety COPD Chronic resp failure s/p trach Hx of tracheal bleeding [place] resident ([facility]) VRE and MRSA colonized Plan: Cont inhaled tobramycin #5 given MDR PsA in resp cx Cont meropenem #10 01/23 Sp IV vanco #10 given CONS/GPC bacteremia Micro lab to perform sensi on MDR PsA from resp cx on Avycaz and Zerbaxa F/u L thora cx 01/21, NTD Trend WBC Trend resp status, secretions 01/16 SP Zosyn #2 01/14 SP dex 10mg in ED 12/10 SP IV Gentamycin #10 12/07 SP Meropenem #10 12/01 SP IV Vancomycin #5 11/28 Sp Cefepime #2 and IV Gentamycin x1 Monitor CBC/CMP Monitor temp curve, hemodynamics Monitor resp status D/w RN Thank you for this consult. [facility] will continue to follow. Subjective Allergies: Coded Allergies: No Known Allergies (Unverified , 10/10/17) afebrile Objective Last 24 Hour Vital Signs Date Time Temp Pulse Resp B/P (MAP) Pulse Ox O2 Delivery O2 Flow Rate FiO2 01/26/20 12:00 Mechanical Ventilator Mechanical Ventilator 01/26/20 12:00 98.1 59 21 154/104 (121) 95 01/26/20 12:00 40 01/26/20 11:23 63 29 100 60 61 15 01/26/20 09:21 152/72 01/26/20 09:21 77 152/72 01/26/20 09:20 77 152/72 01/26/20 08:00 40 01/26/20 08:00 Mechanical Ventilator Mechanical Ventilator 01/26/20 08:00 98.1 77 23 152/72 (98) 99 01/26/20 07:54 67 01/26/20 07:00 68 22 60 01/26/20 05:20 62 100 01/26/20 04:00 98.1 68 21 152/79 (103) 100 01/26/20 04:00 Mechanical Ventilator Mechanical Ventilator 01/26/20 04:00 40 01/26/20 04:00 65 01/26/20 03:03 68 19 60 01/26/20 00:00 99.1 62 20 156/79 (104) 100 01/26/20 00:00 Mechanical Ventilator Mechanical Ventilator 01/25/20 23:00 62 23 100 Mechanical Ventilator 60 61 18 60 01/25/20 21:11 59 18 141/69 100 01/25/20 20:48 66 143/68 01/25/20 20:41 70 25 143/68 100 01/25/20 20:00 40 01/25/20 20:00 Mechanical Ventilator Mechanical Ventilator 01/25/20 20:00 98.1 69 24 146/72 (96) 100 01/25/20 20:00 63 01/25/20 18:52 66 24 60 01/25/20 18:44 141/64 01/25/20 18:44 62 141/64 01/25/20 16:00 40 01/25/20 16:00 98.2 62 18 141/64 (89) 100 01/25/20 15:32 62 01/25/20 15:25 65 18 60 Height (Feet): 5 Height (Inches): 6.00 Weight (Pounds): 150 HEENT: anicteric Respiratory/Chest: normal breath sounds Cardiovascular: regularly irregular Abdomen: non distended Laboratory Tests Test 01/26/20 06:20 White Blood Count 10.5 K/UL (4.8-10.8) Red Blood Count 2.66 M/UL (4.20-5.40) L Hemoglobin 7.6 G/DL (12.0-16.0) L Hematocrit 21.9 % (37.0-47.0) L Mean Corpuscular Volume 82 FL (80-99) Mean Corpuscular Hemoglobin 28.7 PG (27.0-31.0) Mean Corpuscular Hemoglobin Concent 34.8 G/DL (32.0-36.0) Red Cell Distribution Width 15.6 % (11.6-14.8) H Platelet Count 185 K/UL (150-450) Mean Platelet Volume 7.1 FL (6.5-10.1) Neutrophils (%) (Auto) % (45.0-75.0) Lymphocytes (%) (Auto) % (20.0-45.0) Monocytes (%) (Auto) % (1.0-10.0) Eosinophils (%) (Auto) % (0.0-3.0) Basophils (%) (Auto) % (0.0-2.0) Differential Total Cells Counted 100 Neutrophils % (Manual) 79 % (45-75) H Lymphocytes % (Manual) 18 % (20-45) L Monocytes % (Manual) 3 % (1-10) Eosinophils % (Manual) 0 % (0-3) Basophils % (Manual) 0 % (0-2) Band Neutrophils 0 % (0-8) Platelet Estimate Adequate Platelet Morphology Normal Hypochromasia 1+ Anisocytosis 1+ Prothrombin Time 13.4 SEC (9.30-11.50) H Prothromb Time International Ratio 1.2 (0.9-1.1) H Activated Partial Thromboplast Time 32 SEC (23-33) Sodium Level 140 MMOL/L (136-145) Potassium Level 4.3 MMOL/L (3.5-5.1) Chloride Level 103 MMOL/L (98-107) Carbon Dioxide Level 23 MMOL/L (21-32) Anion Gap 14 mmol/L (5-15) Blood Urea Nitrogen 118 mg/dL (7-18) H Creatinine 4.0 MG/DL (0.55-1.30) H Estimat Glomerular Filtration Rate 12.0 mL/min (>60) Glucose Level 92 MG/DL (74-106) Calcium Level 8.0 MG/DL (8.5-10.1) L Phosphorus Level 5.6 MG/DL (2.5-4.9) H Total Bilirubin 0.5 MG/DL (0.2-1.0) Aspartate Amino Transf (AST/SGOT) 31 U/L (15-37) Alanine Aminotransferase (ALT/SGPT) 14 U/L (12-78) Alkaline Phosphatase 232 U/L (46-116) H Total Protein 6.6 G/DL (6.4-8.2) Albumin 2.0 G/DL (3.4-5.0) L Globulin 4.6 g/dL Albumin/Globulin Ratio 0.4 (1.0-2.7) L Current Medications Medications (Trade) Dose Ordered Sig/Penny Route PRN Reason Start Time Stop Time Status Last Admin Dose Admin Acetaminophen (Tylenol) 500 mg Q6H PRN GT FEVER 01/21/20 20:45 02/20/20 20:44 01/24/20 17:13 Amlodipine Besylate (Norvasc) 5 mg BID GT 01/22/20 18:00 02/20/20 15:44 01/26/20 09:21 Aspirin (ASA) 81 mg DAILY GT 01/20/20 09:00 03/05/20 08:59 01/25/20 09:17 Atorvastatin Calcium (Lipitor) 10 mg BEDTIME GT 01/17/20 21:00 04/16/20 20:59 01/25/20 20:48 Chlorhexidine Gluconate (Ling-Hex 2%) 1 applic DAILY@199901/17/20 20:00 04/16/20 19:59 01/25/20 20:49 Dextrose (Dextrose 50%) 25 ml Q30M PRN IV Hypoglycemia 01/15/20 22:15 04/14/20 22:14 Dextrose (Dextrose 50%) 50 ml Q30M PRN IV Hypoglycemia 01/15/20 22:15 04/14/20 22:14 01/22/20 17:54 Epoetin Gelacio (Epoetin Gelacio(ESRD on dialysis)) 10,000 unit MON-MON-MON SUBQ 01/27/20 21:00 04/26/20 20:59 Isosorbide Dinitrate (Isordil) 20 mg TID GT 01/25/20 09:00 02/19/20 08:59 01/26/20 09:21 Lansoprazole (Prevacid) 30 mg BID GT 01/19/20 18:00 02/18/20 17:59 01/26/20 09:21 Lorazepam (Ativan 2mg/ml 1ml) 0.5 mg EVERY 8 HOURS IV 01/23/20 22:00 01/30/20 21:59 01/25/20 20:41 Meropenem 500 mg/ Sodium Chloride 55 ml @ 110 mls/hr Q24H IVPB 01/22/20 10:30 01/27/20 10:29 01/26/20 11:11 Metoclopramide HCl (Reglan) 5 mg Q6H PRN IVP Nausea & Vomiting 01/15/20 22:15 02/14/20 22:14 Metoprolol Tartrate (Lopressor) 25 mg Q12HR ORAL 01/23/20 09:00 04/22/20 08:59 01/26/20 09:20 Tobramycin Sulfate (Nebcin) 300 mg Q12HRT INH 01/23/20 22:00 01/29/20 09:59 01/26/20 11:27 Zinc Oxide (Zinc Oxide) 1 applic TIDPRN PRN TOPIC diogenes GT 01/16/20 13:15 04/15/20 13:14 01/16/20 14:55 Fabricio Ruiz MD Jan 26, 2020 13:57
[2020-01-26 16:00] VITALS: BP 150/70
--- NOTE | 2020-01-26 18:03 | Nephrology Progress Note ---
Assessment/Plan Problem List: (1) ARF (acute renal failure) (2) Pacemaker (3) Sepsis (4) Hyponatremia Assessment (1) JAVIER (acute kidney injury) (2) Renal failure (ARF), acute on chronic (3) Feeding by G-tube (4) Tracheostomy in place (5) Electrolyte imbalance, hyponatremia (6) Anemia, severe (7) Respiratory failure, acute and chronic (8) Elevated lipase, pancreatitis (9) Elevated troponin I (10) Sepsis Plan January 25: Dialysis for tomorrow. Labs reviewed. Hemoglobin remains low. Will adjust blood pressure medication. Hydralazine added to the regimen January 24: Last dialyzed January 22. Labs reviewed. Status quo. Will dialyze as needed. Low hemoglobin noted. Transfusion per PMD decision. Epogen started. \January 23: Dialyzed yesterday. Today's labs reviewed. Continue to monitor renal parameters and arrange for dialysis as needed. Continue per PMD. January 22: Seen earlier during dialysis. Labs reviewed. Medication list reviewed. Continue current management. January 21: Labs reviewed. Medication list reviewed. Next hemodialysis tomorrow. Blood pressure medication adjusted. January 20: Dialyzed yesterday. Labs reviewed. Continue per current georgeyennifer harrell. Dialysis as needed. Add Norvasc to blood pressure regimen January 19: Due for dialysis today. Labs reviewed. Continue her current management. Continue to monitor renal parameters and electrolytes. January 18: Dialyzed yesterday. Labs reviewed. Renal parameters electrolytes much improved. Dialysis again tomorrow. Continue rest. January 17: Dialyzed this morning. Labs reviewed. Renal parameters and electrolyte abnormalities improved. Discussed with RN. Continue per consultants. January 16: Dialyzed yesterday. Labs improved. Next dialysis tomorrow. Continue per consultants. January 15: Patient to have dialysis catheter. Emergency dialysis for correction of uremia and electrolyte imbalances Antibiotics Transfusion Continue to monitor renal parameters Per orders Discussed with RN Subjective ROS Limited/Unobtainable: Yes Objective Objective Last 24 Hour Vital Signs Date Time Temp Pulse Resp B/P (MAP) Pulse Ox O2 Delivery O2 Flow Rate FiO2 01/26/20 16:00 Mechanical Ventilator Mechanical Ventilator 01/26/20 16:00 40 01/26/20 15:30 64 01/26/20 15:20 65 26 60 01/26/20 14:43 69 21 154/104 99 01/26/20 14:14 154/104 01/26/20 14:13 69 21 154/104 99 01/26/20 12:00 Mechanical Ventilator Mechanical Ventilator 01/26/20 12:00 98.1 59 21 154/104 (121) 95 01/26/20 12:00 40 01/26/20 11:30 64 01/26/20 11:23 63 29 100 60 61 15 01/26/20 09:21 152/72 01/26/20 09:21 77 152/72 01/26/20 09:20 77 152/72 01/26/20 08:00 40 01/26/20 08:00 Mechanical Ventilator Mechanical Ventilator 01/26/20 08:00 98.1 77 23 152/72 (98) 99 01/26/20 07:54 67 01/26/20 07:00 68 22 60 01/26/20 05:20 62 100 01/26/20 04:00 98.1 68 21 152/79 (103) 100 01/26/20 04:00 Mechanical Ventilator Mechanical Ventilator 01/26/20 04:00 40 01/26/20 04:00 65 01/26/20 03:03 68 19 60 01/26/20 00:00 99.1 62 20 156/79 (104) 100 01/26/20 00:00 Mechanical Ventilator Mechanical Ventilator 01/25/20 23:00 62 23 100 Mechanical Ventilator 60 61 18 60 01/25/20 21:11 59 18 141/69 100 01/25/20 20:48 66 143/68 01/25/20 20:41 70 25 143/68 100 01/25/20 20:00 40 01/25/20 20:00 Mechanical Ventilator Mechanical Ventilator 01/25/20 20:00 98.1 69 24 146/72 (96) 100 01/25/20 20:00 63 01/25/20 18:52 66 24 60 01/25/20 18:44 141/64 01/25/20 18:44 62 141/64 Intake and Output 01/25/20 01/26/20 19:00 07:00 Intake Total 710 ml 480 ml Output Total 200 ml 250 ml Balance 510 ml 230 ml Free Water 290 ml 0 ml Tube Feeding 420 ml 420 ml Blood Product 60 ml Output Urine Total 200 ml 250 ml Current Medications Medications (Trade) Dose Ordered Sig/Penny Route PRN Reason Start Time Stop Time Status Last Admin Dose Admin Acetaminophen (Tylenol) 500 mg Q6H PRN GT FEVER 01/21/20 20:45 02/20/20 20:44 01/24/20 17:13 Amlodipine Besylate (Norvasc) 5 mg BID GT 01/22/20 18:00 02/20/20 15:44 01/26/20 09:21 Aspirin (ASA) 81 mg DAILY GT 01/20/20 09:00 03/05/20 08:59 01/25/20 09:17 Atorvastatin Calcium (Lipitor) 10 mg BEDTIME GT 01/17/20 21:00 04/16/20 20:59 01/25/20 20:48 Chlorhexidine Gluconate (Ling-Hex 2%) 1 applic DAILY@199901/17/20 20:00 04/16/20 19:59 01/25/20 20:49 Dextrose (Dextrose 50%) 25 ml Q30M PRN IV Hypoglycemia 01/15/20 22:15 04/14/20 22:14 Dextrose (Dextrose 50%) 50 ml Q30M PRN IV Hypoglycemia 01/15/20 22:15 04/14/20 22:14 01/22/20 17:54 Epoetin Gelacio (Epoetin Gelacio(ESRD on dialysis)) 10,000 unit MON-MON-MON SUBQ 01/27/20 21:00 04/26/20 20:59 Isosorbide Dinitrate (Isordil) 20 mg TID GT 01/25/20 09:00 02/19/20 08:59 01/26/20 14:14 Lansoprazole (Prevacid) 30 mg BID GT 01/19/20 18:00 02/18/20 17:59 01/26/20 09:21 Lorazepam (Ativan 2mg/ml 1ml) 0.5 mg EVERY 8 HOURS IV 01/23/20 22:00 01/30/20 21:59 01/26/20 14:13 Meropenem 500 mg/ Sodium Chloride 55 ml @ 110 mls/hr Q12HR IVPB 01/26/20 21:00 01/27/20 10:29 Metoclopramide HCl (Reglan) 5 mg Q6H PRN IVP Nausea & Vomiting 01/15/20 22:15 02/14/20 22:14 Metoprolol Tartrate (Lopressor) 25 mg Q12HR ORAL 01/23/20 09:00 04/22/20 08:59 01/26/20 09:20 Tobramycin Sulfate (Nebcin) 300 mg Q12HRT INH 01/23/20 22:00 01/29/20 09:59 01/26/20 11:27 Zinc Oxide (Zinc Oxide) 1 applic TIDPRN PRN TOPIC diogenes GT 01/16/20 13:15 04/15/20 13:14 01/16/20 14:55 Laboratory Tests 01/26/20 06:20: White Blood Count 10.5, Red Blood Count 2.66L, Hemoglobin 7.6L, Hematocrit 21.9L , Mean Corpuscular Volume 82, Mean Corpuscular Hemoglobin 28.7, Mean Corpuscular Hemoglobin Concent 34.8, Red Cell Distribution Width 15.6H, Platelet Count 185, Mean Platelet Volume 7.1, Neutrophils (%) (Auto) , Lymphocytes (%) (Auto) , Monocytes (%) (Auto) , Eosinophils (%) (Auto) , Basophils (%) (Auto) , Differential Total Cells Counted 100, Neutrophils % (Manual) 79H, Lymphocytes % (Manual) 18L, Monocytes % (Manual) 3, Eosinophils % (Manual) 0, Basophils % (Manual) 0, Band Neutrophils 0, Platelet Estimate Adequate, Platelet Morphology Normal, Hypochromasia 1+, Anisocytosis 1+, Prothrombin Time 13.4H, Prothromb Time International Ratio 1.2H, Activated Partial Thromboplast Time 32, Sodium Level 140, Potassium Level 4.3, Chloride Level 103, Carbon Dioxide Level 23, Anion Gap 14, Blood Urea Nitrogen 118H, Creatinine 4.0H, Estimat Glomerular Filtration Rate 12.0, Glucose Level 92, Calcium Level 8.0L, Phosphorus Level 5.6H, Total Bilirubin 0.5, Aspartate Amino Transf (AST/SGOT) 31, Alanine Aminotransferase (ALT/SGPT) 14, Alkaline Phosphatase 232H, Total Protein 6.6, Albumin 2.0L, Globulin 4.6, Albumin/Globulin Ratio 0.4L Height (Feet): 5 Height (Inches): 6.00 Weight (Pounds): 150 General Appearance: no apparent distress, lethargic EENT: other - Trach to vent Cardiovascular: normal rate Respiratory/Chest: decreased breath sounds Abdomen: distended Johnny Houston MD Jan 26, 2020 18:03
[2020-01-26] MEDS: HydrALAZINE 25mg tab GT SCH (18:27)
--- NOTE | 2020-01-26 19:18 | NUR ---
NURSE HAND-OFF REPORT: Important Events on Shift: Collected GT site secretion. HD in A.M endorsed to Charbel ZIMMERMAN to call [facility]. Patient Status: remain stable Diet: Nepro 1.8 Pending Orders: HD AT [facility] TOMORROW Pending Results/Labs: N Pending notification:[N Latest Vital Signs: Temperature 97.7 , Pulse 99 , B/P 150 /70 , Respiratory Rate 22 , O2 SAT 100 , Mechanical Ventilator, O2 Flow Rate . Vital Sign Comment: WNL EKG Rhythm: Sinus Rhythm Rhythm change?: N Notified?: Gabriel -Dr. Екатерина HATFIELD Response: Order Received& Read Back Latest [place] Fall Score: 70 Fall Risk: High Risk Safety Measures: Call light Within Reach, Bed Alarm Zone 1, Side Rails Side Rails x3, Bed position Low and Locked. Fall Precautions: Yellow Socks Report given to CHARBEL ZIMMERMAN.
--- NOTE | 2020-01-26 19:22 | NUR ---
NURSE NOTES: Received patient from [facility] under the care of Dr. Dong, for the admitting dx. of sAKI, sepsis, and respiratory failure. Noted NKA and full code status. Patient on contact isolation. Fall and aspiration precautions observed and maintained at all times. Patient is alert to self and responsive to touch stimuli. Tolerating vent settings well. No acute distress noted. 0/10 FLACC score noted at this time. Will continue to monitor.
[2020-01-26 20:00] VITALS: BP 150/75
[2020-01-26] MEDS: Dyna-Hex 2% Top Sol 2oz TOPIC SCH (20:03)
[2020-01-26] MEDS ORDERED: Meropenem 500 MG in NS 55 ML IVPB SCH (21:00)
--- NOTE | 2020-01-26 21:00 | NUR ---
NURSE NOTES: Patient awake and television on in room for stimulation. All due meds given and tolerated well. No distress noted. Will continue to monitor.
[2020-01-27] VITALS: BP 136/64
--- NOTE | 2020-01-27 | NUR ---
NURSE NOTES: Patient asleep and resting comfortably. Will continue to monitor.
[2020-01-27] MEDS: HydrALAZINE 25mg tab GT SCH ×4 (00:27→17:42)
--- NOTE | 2020-01-27 02:40 | Cardiology Progress Note ---
Subjective DATE OF SERVICE: Jan 26, 2020 Remains in atrial fibrillation; rates controlled. Occasional PVC's - non- sustained BP parameters in higher range now. Remains off amiodarone Full vent support via trach s/p left thorocentesis 01/22/20 Low hemoglobin; on epogen Objective Last 24 Hour Vital Signs Date Time Temp Pulse Resp B/P (MAP) Pulse Ox O2 Delivery O2 Flow Rate FiO2 01/27/20 00:27 163/69 01/27/20 00:00 40 01/27/20 00:00 68 01/27/20 00:00 Mechanical Ventilator Mechanical Ventilator 01/27/20 00:00 97.9 72 22 136/64 (88) 100 01/26/20 22:50 70 24 99 Mechanical Ventilator 60 72 24 60 01/26/20 22:02 71 24 150/70 100 01/26/20 21:32 71 24 150/70 100 01/26/20 21:31 71 150/70 01/26/20 20:00 40 01/26/20 20:00 Mechanical Ventilator Mechanical Ventilator 01/26/20 20:00 77 01/26/20 20:00 98.1 74 22 150/75 (100) 100 01/26/20 19:30 71 24 60 01/26/20 18:27 150/70 01/26/20 18:27 150/70 01/26/20 18:27 99 150/70 01/26/20 16:00 97.7 99 22 150/70 (96) 100 01/26/20 16:00 Mechanical Ventilator Mechanical Ventilator 01/26/20 16:00 40 01/26/20 15:30 64 01/26/20 15:20 65 26 60 01/26/20 14:43 69 21 154/104 99 01/26/20 14:14 154/104 01/26/20 14:13 69 21 154/104 99 01/26/20 12:00 Mechanical Ventilator Mechanical Ventilator 01/26/20 12:00 98.1 59 21 154/104 (121) 95 01/26/20 12:00 40 01/26/20 11:30 64 01/26/20 11:23 63 29 100 60 61 15 01/26/20 09:21 152/72 01/26/20 09:21 77 152/72 01/26/20 09:20 77 152/72 01/26/20 08:00 40 01/26/20 08:00 Mechanical Ventilator Mechanical Ventilator 01/26/20 08:00 98.1 77 23 152/72 (98) 99 01/26/20 07:54 67 01/26/20 07:00 68 22 60 01/26/20 05:20 62 100 01/26/20 04:00 98.1 68 21 152/79 (103) 100 01/26/20 04:00 Mechanical Ventilator Mechanical Ventilator 01/26/20 04:00 40 01/26/20 04:00 65 01/26/20 03:03 68 19 60 ROS: unchanged for 01/17/20 HEENT: Mechanically Ventilated, Thick Trach secretions RHYTHM: Afib LUNGS: bilateral rhonchi CARDIAC: normal S1 and S2, irregularly irregular ABDOMEN: normal bowel sounds, non tender, soft, G-Tube intact EXTREMITIES: normal inspection, trace edema Laboratory Tests Test 01/26/20 06:20 White Blood Count 10.5 K/UL (4.8-10.8) Red Blood Count 2.66 M/UL (4.20-5.40) L Hemoglobin 7.6 G/DL (12.0-16.0) L Hematocrit 21.9 % (37.0-47.0) L Mean Corpuscular Volume 82 FL (80-99) Mean Corpuscular Hemoglobin 28.7 PG (27.0-31.0) Mean Corpuscular Hemoglobin Concent 34.8 G/DL (32.0-36.0) Red Cell Distribution Width 15.6 % (11.6-14.8) H Platelet Count 185 K/UL (150-450) Mean Platelet Volume 7.1 FL (6.5-10.1) Neutrophils (%) (Auto) % (45.0-75.0) Lymphocytes (%) (Auto) % (20.0-45.0) Monocytes (%) (Auto) % (1.0-10.0) Eosinophils (%) (Auto) % (0.0-3.0) Basophils (%) (Auto) % (0.0-2.0) Differential Total Cells Counted 100 Neutrophils % (Manual) 79 % (45-75) H Lymphocytes % (Manual) 18 % (20-45) L Monocytes % (Manual) 3 % (1-10) Eosinophils % (Manual) 0 % (0-3) Basophils % (Manual) 0 % (0-2) Band Neutrophils 0 % (0-8) Platelet Estimate Adequate Platelet Morphology Normal Hypochromasia 1+ Anisocytosis 1+ Prothrombin Time 13.4 SEC (9.30-11.50) H Prothromb Time International Ratio 1.2 (0.9-1.1) H Activated Partial Thromboplast Time 32 SEC (23-33) Sodium Level 140 MMOL/L (136-145) Potassium Level 4.3 MMOL/L (3.5-5.1) Chloride Level 103 MMOL/L (98-107) Carbon Dioxide Level 23 MMOL/L (21-32) Anion Gap 14 mmol/L (5-15) Blood Urea Nitrogen 118 mg/dL (7-18) H Creatinine 4.0 MG/DL (0.55-1.30) H Estimat Glomerular Filtration Rate 12.0 mL/min (>60) Glucose Level 92 MG/DL (74-106) Calcium Level 8.0 MG/DL (8.5-10.1) L Phosphorus Level 5.6 MG/DL (2.5-4.9) H Total Bilirubin 0.5 MG/DL (0.2-1.0) Aspartate Amino Transf (AST/SGOT) 31 U/L (15-37) Alanine Aminotransferase (ALT/SGPT) 14 U/L (12-78) Alkaline Phosphatase 232 U/L (46-116) H Total Protein 6.6 G/DL (6.4-8.2) Albumin 2.0 G/DL (3.4-5.0) L Globulin 4.6 g/dL Albumin/Globulin Ratio 0.4 (1.0-2.7) L Assessment/Plan Assessment/Plan Chronic respiratory failure with trach Severe sepsis PAFib with rapid ventric response. Ischemic cardiomyopathy - hx CABG and s/p NSTEMI in Dec 2019. Conduction system disease of the heart Hx of permanent pacemaker explant Acute on chronic systolic and diastolic CHF Pleural effusion Hypertension/HHD with labile BP. Avoid amiodarone Reassess for beta flori therapy based on heart rate range. Anti-failure and anti-anginal regimen with titration Vent support Abx per ID Continuous cardiac monitoring Anti-HTN regimen advanced. Deni Willams MD Jan 27, 2020 02:40
--- NOTE | 2020-01-27 03:00 | NUR ---
NURSE NOTES: Patient continues to be asleep and resting comfortably. 0/10 FLACC score noted. No distress noted. Will continue to monitor.
[2020-01-27 04:00] VITALS: BP 151/68
--- NOTE | 2020-01-27 06:00 | NUR ---
NURSE NOTES: Continues to be asleep. No distress noted. Will continue to monitor.
[2020-01-27] MEDS: LORazepam Inj 2mg/ml 1ml IV SCH ×3 (06:01→21:24)
[2020-01-27 06:52] LABS: HEMATOCRIT 20.9 % (37.0-47.0); HEMOGLOBIN 7.2 G/DL (12.0-16.0); MEAN CORPUSCULAR VOLUME 82 FL (80-99); PLATELET COUNT 200 K/UL (150-450); RED BLOOD COUNT 2.56 M/UL (4.20-5.40); RED CELL DISTRIBUTION WIDTH 14.9 % (11.6-14.8); WHITE BLOOD COUNT 10.2 K/UL (4.8-10.8)
--- NOTE | 2020-01-27 07:07 | Hematology/Onc Progress Note ---
Assessment/Plan Assessment/Plan Assessment and Recs # Leukocytosis, now with pna v other process --> Cxr: : Large left pleural effusion, Bilateral interstitial and airspace infiltrates versus edema --> wbc 16-->26->30-->10 --> ABX zosyn-->angelo/vanc-->angelo/tobra --> ID recs are noted --> smear has been reviewed # Anemia of chronic disease due to underlying chronic medical issues, multifactorial --> Anemia workup has been reviewed, cw acd --> No evidence of hemolysis is noted, peripheral smear has been reviewed. --> Hgb goal >7. Transfuse prn. --> Epogen required in prior --> Medications have been reviewed --> low threshold for gi evaluation in case has occult + --> hgb 7.1-->7.8-->>>5.9-->7.3-->7-->7.2 --> 1 unit prbc10/17, 2 units 12/3 --> gi eval as needed # Coagulopathy with inr 1.5 --> consider vit k/ffp as needed preprocedure --> labs noted # JAVIER initially >2 --> on ivfs --> per renal # Elevated d-dimer --> venous duplex ordered-->reviewed, is neg --> in prior neg # Dysphagia s/p peg --> as per gi # Thoracic aortic dissection --> s/p repair early 2017 # Chronic Resp failure -> s/p trach/vent # Psychiatric history on ativan/haldol # [place] resident # Dvt ppx --> scds The timing of this note does not necessarily reflect the time of the patient was seen. Greatly appreciate consultation. Subjective Allergies: Coded Allergies: No Known Allergies (Unverified , 10/10/17) All Systems: reviewed and negative except above Subjective 01/16 left femoral arden in place, on vent, icu, hgb better 126 labs are noted, wbc 30, hgb 7, may require prbc today 01/27 is off amio, on epoogen, hgb reviewed, 7.2, transfuse if unstable Objective Objective Current Medications Medications (Trade) Dose Ordered Sig/Penny Route PRN Reason Start Time Stop Time Status Last Admin Dose Admin Acetaminophen (Tylenol) 500 mg Q6H PRN GT FEVER 01/21/20 20:45 02/20/20 20:44 01/24/20 17:13 Amlodipine Besylate (Norvasc) 5 mg BID GT 01/22/20 18:00 02/20/20 15:44 01/26/20 18:27 Aspirin (ASA) 81 mg DAILY GT 01/20/20 09:00 03/05/20 08:59 01/25/20 09:17 Atorvastatin Calcium (Lipitor) 10 mg BEDTIME GT 01/17/20 21:00 04/16/20 20:59 01/26/20 21:31 Chlorhexidine Gluconate (Lnig-Hex 2%) 1 applic DAILY@2000 TOPIC 01/17/20 20:00 04/16/20 19:59 01/26/20 20:03 Dextrose (Dextrose 50%) 25 ml Q30M PRN IV Hypoglycemia 01/15/20 22:15 04/14/20 22:14 Dextrose (Dextrose 50%) 50 ml Q30M PRN IV Hypoglycemia 01/15/20 22:15 04/14/20 22:14 01/22/20 17:54 Epoetin Gelacio (Epoetin Gelacio(ESRD on dialysis)) 10,000 unit MON-MON-MON SUBQ 01/27/20 21:00 04/26/20 20:59 Hydralazine HCl (Apresoline) 25 mg Q6HR GT 01/26/20 18:15 04/25/20 18:14 01/27/20 06:01 Isosorbide Dinitrate (Isordil) 20 mg TID GT 01/25/20 09:00 02/19/20 08:59 01/26/20 18:27 Lansoprazole (Prevacid) 30 mg BID GT 01/19/20 18:00 02/18/20 17:59 01/26/20 18:27 Lorazepam (Ativan 2mg/ml 1ml) 0.5 mg EVERY 8 HOURS IV 01/23/20 22:00 01/30/20 21:59 01/27/20 06:01 Meropenem 500 mg/ Sodium Chloride 55 ml @ 110 mls/hr Q12HR IVPB 01/26/20 21:00 01/27/20 10:29 01/26/20 21:50 Metoclopramide HCl (Reglan) 5 mg Q6H PRN IVP Nausea & Vomiting 01/15/20 22:15 02/14/20 22:14 Metoprolol Tartrate (Lopressor) 25 mg Q12HR ORAL 01/23/20 09:00 04/22/20 08:59 01/26/20 21:31 Tobramycin Sulfate (Nebcin) 300 mg Q12HRT INH 01/23/20 22:00 01/29/20 09:59 01/26/20 22:49 Zinc Oxide (Zinc Oxide) 1 applic TIDPRN PRN TOPIC diogenes GT 01/16/20 13:15 04/15/20 13:14 01/16/20 14:55 Last 24 Hour Vital Signs Date Time Temp Pulse Resp B/P (MAP) Pulse Ox O2 Delivery O2 Flow Rate FiO2 01/27/20 06:31 68 22 151/68 100 01/27/20 06:01 151/68 01/27/20 06:01 68 22 151/68 100 01/27/20 04:00 98.1 72 22 151/68 (95) 100 01/27/20 04:00 68 01/27/20 04:00 Mechanical Ventilator Mechanical Ventilator 01/27/20 04:00 40 01/27/20 03:12 70 20 60 01/27/20 00:27 163/69 01/27/20 00:00 40 01/27/20 00:00 68 01/27/20 00:00 Mechanical Ventilator Mechanical Ventilator 01/27/20 00:00 97.9 72 22 136/64 (88) 100 01/26/20 22:50 70 24 99 Mechanical Ventilator 60 72 24 60 01/26/20 22:02 71 24 150/70 100 01/26/20 21:32 71 24 150/70 100 01/26/20 21:31 71 150/70 01/26/20 20:00 40 01/26/20 20:00 Mechanical Ventilator Mechanical Ventilator 01/26/20 20:00 77 01/26/20 20:00 98.1 74 22 150/75 (100) 100 01/26/20 19:30 71 24 60 01/26/20 18:27 150/70 01/26/20 18:27 150/70 01/26/20 18:27 99 150/70 12/13/20 16:00 97.7 99 22 150/70 (96) 100 01/26/20 16:00 Mechanical Ventilator Mechanical Ventilator 01/26/20 16:00 40 01/26/20 15:30 64 01/26/20 15:20 65 26 60 01/26/20 14:43 69 21 154/104 99 01/26/20 14:14 154/104 01/26/20 14:13 69 21 154/104 99 01/26/20 12:00 Mechanical Ventilator Mechanical Ventilator 01/26/20 12:00 98.1 59 21 154/104 (121) 95 01/26/20 12:00 40 01/26/20 11:30 64 01/26/20 11:23 63 29 100 60 61 15 01/26/20 09:21 152/72 01/26/20 09:21 77 152/72 01/26/20 09:20 77 152/72 01/26/20 08:00 40 01/26/20 08:00 Mechanical Ventilator Mechanical Ventilator 01/26/20 08:00 98.1 77 23 152/72 (98) 99 01/26/20 07:54 67 01/26/20 07:00 68 22 60 01/26/20 05:20 62 100 01/26/20 04:00 98.1 68 21 152/79 (103) 100 01/26/20 04:00 Mechanical Ventilator Mechanical Ventilator 01/26/20 04:00 40 01/26/20 04:00 65 01/26/20 03:03 68 19 60 01/26/20 00:00 99.1 62 20 156/79 (104) 100 01/26/20 00:00 Mechanical Ventilator Mechanical Ventilator 01/25/20 23:00 62 23 100 Mechanical Ventilator 60 61 18 60 01/25/20 21:11 59 18 141/69 100 01/25/20 20:48 66 143/68 01/25/20 20:41 70 25 143/68 100 01/25/20 20:00 40 01/25/20 20:00 Mechanical Ventilator Mechanical Ventilator 01/25/20 20:00 98.1 69 24 146/72 (96) 100 01/25/20 20:00 63 01/25/20 18:52 66 24 60 01/25/20 18:44 141/64 01/25/20 18:44 62 141/64 01/25/20 16:00 40 12/12/20 16:00 98.2 62 18 141/64 (89) 100 01/25/20 15:32 62 01/25/20 15:25 65 18 60 01/25/20 13:50 137/69 01/25/20 12:00 97.9 62 18 137/69 (91) 100 01/25/20 12:00 40 01/25/20 11:48 61 01/25/20 10:51 58 14 100 Mechanical Ventilator 60 60 15 60 01/25/20 09:18 150/70 01/25/20 09:17 66 150/70 01/25/20 09:17 66 150/70 01/25/20 08:13 64 01/25/20 08:00 98.1 66 22 150/70 (96) 100 01/25/20 08:00 40 01/25/20 07:20 52 16 60 Intake and Output 01/26/20 01/27/20 19:00 07:00 Intake Total 635 ml Output Total 350 ml Balance 285 ml Free Water 250 ml Tube Feeding 385 ml Output Urine Total 350 ml # Bowel Movements 1 Labs Test 01/24/20 10:14 01/24/20 12:34 01/24/20 17:06 01/25/20 00:41 Arterial Blood pH 7.461 (7.350-7.450) Arterial Blood Partial Pressure CO2 30.5 mmHg (35.0-45.0) Arterial Blood Partial Pressure O2 123.0 mmHg (75.0-100.0) Arterial Blood HCO3 21.3 mmol/L (22.0-26.0) Arterial Blood Oxygen Saturation 98.0 % (95-100) Arterial Blood Base Excess -2.2 (-2-2) Rojas Test Positive POC Whole Blood Glucose 83 MG/DL (74-106) Test 01/25/20 05:13 01/25/20 07:40 01/26/20 06:20 01/27/20 03:55 POC Whole Blood Glucose 86 MG/DL (74-106) White Blood Count 9.2 K/UL (4.8-10.8) 10.5 K/UL (4.8-10.8) 10.2 K/UL (4.8-10.8) Red Blood Count 2.61 M/UL (4.20-5.40) 2.66 M/UL (4.20-5.40) 2.56 M/UL (4.20-5.40) Hemoglobin 7.3 G/DL (12.0-16.0) 7.6 G/DL (12.0-16.0) 7.2 G/DL (12.0-16.0) Hematocrit 21.1 % (37.0-47.0) 21.9 % (37.0-47.0) 20.9 % (37.0-47.0) Mean Corpuscular Volume 81 FL (80-99) 82 FL (80-99) 82 FL (80-99) Mean Corpuscular Hemoglobin 27.9 PG (27.0-31.0) 28.7 PG (27.0-31.0) 28.2 PG (27.0-31.0) Mean Corpuscular Hemoglobin Concent 34.6 G/DL (32.0-36.0) 34.8 G/DL (32.0-36.0) 34.4 G/DL (32.0-36.0) Red Cell Distribution Width 15.8 % (11.6-14.8) 15.6 % (11.6-14.8) 14.9 % (11.6-14.8) Platelet Count 157 K/UL (150-450) 185 K/UL (150-450) 200 K/UL (150-450) Mean Platelet Volume 6.4 FL (6.5-10.1) 7.1 FL (6.5-10.1) 6.8 FL (6.5-10.1) Neutrophils (%) (Auto) % (45.0-75.0) % (45.0-75.0) % (45.0-75.0) Lymphocytes (%) (Auto) % (20.0-45.0) % (20.0-45.0) % (20.0-45.0) Monocytes (%) (Auto) % (1.0-10.0) % (1.0-10.0) % (1.0-10.0) Eosinophils (%) (Auto) % (0.0-3.0) % (0.0-3.0) % (0.0-3.0) Basophils (%) (Auto) % (0.0-2.0) % (0.0-2.0) % (0.0-2.0) Differential Total Cells Counted 100 100 Neutrophils % (Manual) 82 % (45-75) 79 % (45-75) Lymphocytes % (Manual) 14 % (20-45) 18 % (20-45) Monocytes % (Manual) 4 % (1-10) 3 % (1-10) Eosinophils % (Manual) 0 % (0-3) 0 % (0-3) Basophils % (Manual) 0 % (0-2) 0 % (0-2) Band Neutrophils 0 % (0-8) 0 % (0-8) Platelet Estimate Adequate Adequate Platelet Morphology Normal Normal Hypochromasia 1+ 1+ Anisocytosis 1+ 1+ Sodium Level 142 MMOL/L (136-145) 140 MMOL/L (136-145) Potassium Level 4.0 MMOL/L (3.5-5.1) 4.3 MMOL/L (3.5-5.1) Chloride Level 105 MMOL/L (98-107) 103 MMOL/L (98-107) Carbon Dioxide Level 25 MMOL/L (21-32) 23 MMOL/L (21-32) Anion Gap 12 mmol/L (5-15) 14 mmol/L (5-15) Blood Urea Nitrogen 99 mg/dL (7-18) 118 mg/dL (7-18) Creatinine 3.6 MG/DL (0.55-1.30) 4.0 MG/DL (0.55-1.30) Estimat Glomerular Filtration Rate 13.6 mL/min (>60) 12.0 mL/min (>60) Glucose Level 89 MG/DL (74-106) 92 MG/DL (74-106) Calcium Level 7.8 MG/DL (8.5-10.1) 8.0 MG/DL (8.5-10.1) Phosphorus Level 4.6 MG/DL (2.5-4.9) 5.6 MG/DL (2.5-4.9) Magnesium Level 2.5 MG/DL (1.8-2.4) Total Bilirubin 0.5 MG/DL (0.2-1.0) 0.5 MG/DL (0.2-1.0) Aspartate Amino Transf (AST/SGOT) 33 U/L (15-37) 31 U/L (15-37) Alanine Aminotransferase (ALT/SGPT) 14 U/L (12-78) 14 U/L (12-78) Alkaline Phosphatase 235 U/L (46-116) 232 U/L (46-116) C-Reactive Protein, Quantitative 21.0 mg/dL (0.00-0.90) Pro-B-Type Natriuretic Peptide > 17435 pg/mL (0-125) Total Protein 6.4 G/DL (6.4-8.2) 6.6 G/DL (6.4-8.2) Albumin 1.9 G/DL (3.4-5.0) 2.0 G/DL (3.4-5.0) Globulin 4.5 g/dL 4.6 g/dL Albumin/Globulin Ratio 0.4 (1.0-2.7) 0.4 (1.0-2.7) Amylase Level 363 U/L (25-115) Lipase > 2000 U/L (73-393) Prothrombin Time 13.4 SEC (9.30-11.50) Prothromb Time International Ratio 1.2 (0.9-1.1) Activated Partial Thromboplast Time 32 SEC (23-33) Micro Microbiology Date/Time Source Procedure Growth Status 01/26/20 15:20 Other(Specify in comment) Gram Stain - Final Resulted 01/26/20 15:20 Other(Specify in comment) Wound Culture Pending Resulted Height (Feet): 5 Height (Inches): 6.00 Weight (Pounds): 150 Objective Physical Exam: Vitals: reviewed General: NAD HEENT: nc, at Neck: supple ++trach/vent Chest: clear breath sounds bilaterally Cardiovascular: RRR, no s3, s4 Abdomen: soft, nontender, nd +gtube Extremities: no cce, normal range of motion Neuro: alert Evan Muhammad MD Jan 27, 2020 07:07
--- NOTE | 2020-01-27 07:20 | NUR ---
NURSE HAND-OFF REPORT: Important Events on Shift:Called for HD service. Patient Status: Stable Diet: GT Pending Orders: Pending Results/Labs: Pending MD notification: Latest Vital Signs: Temperature 98.1 , Pulse 68 , B/P 151 /68 , Respiratory Rate 22 , O2 SAT 100 , Mechanical Ventilator, O2 Flow Rate . Vital Sign Comment: WNL EKG Rhythm: Sinus Rhythm Rhythm change?: N MD Notified?: Gabriel Willams MD Response: Order Received& Read Back Latest Chavarria Fall Score: 70 Fall Risk: High Risk Safety Measures: Call light Within Reach, Bed Alarm Zone 1, Side Rails Side Rails x3, Bed position Low and Locked. Fall Precautions: Yellow Socks Report given to ERASMO Lu.
[2020-01-27 08:00] VITALS: BP 145/65
[2020-01-27 08:25] LABS: ALANINE AMINOTRANSFERASE 14 U/L (12-78); ALBUMIN 2.1 G/DL (3.4-5.0); ALBUMIN/GLOBULIN RATIO 0.4 (1.0-2.7); ALKALINE PHOSPHATASE 222 U/L (46-116); AMYLASE 339 U/L (25-115); ANION GAP 16 mmol/L (5-15); ASPARTATE AMINO TRANSFERASE 30 U/L (15-37); BILIRUBIN,TOTAL 0.5 MG/DL (0.2-1.0); BLOOD UREA NITROGEN 126 mg/dL (7-18); CALCIUM 7.9 MG/DL (8.5-10.1); CARBON DIOXIDE 23 MMOL/L (21-32); CHLORIDE 101 MMOL/L (98-107); CREATININE 4.3 MG/DL (0.55-1.30); POTASSIUM 4.2 MMOL/L (3.5-5.1); SODIUM 140 MMOL/L (136-145)
--- NOTE | 2020-01-27 08:27 | Infectious Diseases Prog Note ---
Assessment/Plan 49yo F with: AF Sepsis Leukocytosis Hypoxia on vent Pneumonia c/b L pleural effusion (recurrent, prior determined to be transudative) - s/p thora 01/21, 1050cc removed Volume overload, BNP >35,0000, likely 2/2 progressive CKD --> ESRD ?Pancreatitis, Lipase >2000 Acute anemia to 5s CONS bacteremia, ?contaminant Aflutter w/ RVR 01/13 BCx 2/2 +S. epi COVID PCR neg Flu neg CXR: Large left pleural effusion. Bilateral interstitial and airspace infiltrates versus edema MRSA nares neg 01/16 BCx NTD 01/17 BCx / +Staph auricularis (skin colonizer) 01/18 Resp cx +MDR CRE PsA (S-gent, I-colistin, R-polyB) 01/18 C.dif neg 01/18 CXR: Similar opacification of the left hemithorax likely representing combination of pleural effusion with atelectasis versus pneumonia/edema. Decreased but persistent hazy opacity throughout the right lung may represent edema versus infectious/inflammatory process. 01/20 BCx NTD 01/21 L thora 1050 cc removed, cx NTD 01/25 Wound cx from Gtube site +GNRs JAVIER on CKD On previous admission Sep-Oct 2019 required HD for short period Going to start HD this admission again R/o COVID 01/14 COVID PCR neg 12/29 neg at SNF per report H/o UTI 11/27 u/a wbc 30-40, nit neg, leuk +3; ucx ESBL P. mirablis, ESBL M. morganii 09/15/19 u/a wbc tnct, nit neg, leuk +3; ucx >100k MDR P. stuarti (S Ceftriaxone, Meropenem) 10/07 u/a wbc tnct, nit neg, leuk ; ucx >100k VRE 10/15/19 u/a wbc tnct; ucx >100k ESBL P. stuarti (S ertapenem, aztreonam) H/o transudative pleural effusion 11/28 Sp Thora (w: 169, PMN: 2%, L: 49% , LDH: 57, prot 2.5); cx Neg H/o PNA 10/15/19 Resp cx ESBL P. mirabilis, MDR P.a. (S only to Gent) 09/22 Resp cx + MDR PsA (S-gent; I-colistin; R-levofloxacin, Zosyn, angelo) 09/16/19 Sp cx ESBL P. mirablis H/o PPM site (pocket) infection and pocket abscess 2ry to S. epi-11/2018, sp >6weeks IV vancomycin 11/27 SP ABBIE: no evidence for vegetation on any of the valves 11/26/18 SP PPM removal: OR findings:The fibrous capsule enclosing the generator was then opened and there was a [id number] amount of yellowish fluid drainage. The generator was then removed.Atrial and ventricular leads were detached. The necrotic tissue of the pocket was then removed and the pocket was flushed with an antibiotic solution. Capsule, wound tissue and lead tip cx: Neg 2d echo: no vegetation seen US chest: 4.6 x 3.4 x 0.9 cm hypoechoic/anechoic area overlying left chest pacemaker power pack. This could represent either a discrete fluid collection or a focal area of very edematous tissue. Infected fluid pocket also possible. 11/18 Bcx 3/ S. epi; 11/20 Bcx neg; 11/24 Bcx Neg; 11/27 Bcx Neg CAD s/p CABG GERD/gastritis Afib HTN Dysphagia sp GT Aortic dissection s/p repair 2017 S/p PPM Parkinson's Disease Schizophrenia Anxiety COPD Chronic resp failure s/p trach Hx of tracheal bleeding [place] resident ([facility]) VRE and MRSA colonized Plan: Cont inhaled tobramycin #6/10 given MDR PsA in resp cx Cont meropenem #11/ Trend WBC Trend resp status, secretions F/u G-tube cx 01/25 +GNRs F/u Micro lab to perform sensi on MDR PsA from resp cx on Avycaz and Zerbaxa 01/23 SP vanco IV #10 given CONS/GPC bacteremia 01/16 SP Zosyn #2 01/14 SP dex 10mg in ED 12/10 SP IV Gentamycin #10 12/07 SP Meropenem #10 12/01 SP IV Vancomycin #5 11/28 Sp Cefepime #2 and IV Gentamycin x1 Monitor CBC/CMP Monitor temp curve, hemodynamics Monitor resp status D/w RN Thank you for this consult. [facility] will continue to follow. Subjective Allergies: Coded Allergies: No Known Allergies (Unverified , 10/10/17) AF WBC 10, improving NAD on vent 40% PEEP 5 For HD today Objective Last 24 Hour Vital Signs Date Time Temp Pulse Resp B/P (MAP) Pulse Ox O2 Delivery O2 Flow Rate FiO2 01/27/20 06:31 68 22 151/68 100 01/27/20 06:01 151/68 01/27/20 06:01 68 22 151/68 100 01/27/20 04:00 98.1 72 22 151/68 (95) 100 01/27/20 04:00 68 01/27/20 04:00 Mechanical Ventilator Mechanical Ventilator 01/27/20 04:00 40 01/27/20 03:12 70 20 60 01/27/20 00:27 163/69 01/27/20 00:00 40 01/27/20 00:00 68 01/27/20 00:00 Mechanical Ventilator Mechanical Ventilator 01/27/20 00:00 97.9 72 22 136/64 (88) 100 01/26/20 22:50 70 24 99 Mechanical Ventilator 60 72 24 60 01/26/20 22:02 71 24 150/70 100 01/26/20 21:32 71 24 150/70 100 01/26/20 21:31 71 150/70 01/26/20 20:00 40 01/26/20 20:00 Mechanical Ventilator Mechanical Ventilator 01/26/20 20:00 77 01/26/20 20:00 98.1 74 22 150/75 (100) 100 01/26/20 19:30 71 24 60 01/26/20 18:27 150/70 01/26/20 18:27 150/70 01/26/20 18:27 99 150/70 01/26/20 16:00 97.7 99 22 150/70 (96) 100 01/26/20 16:00 Mechanical Ventilator Mechanical Ventilator 01/26/20 16:00 40 01/26/20 15:30 64 01/26/20 15:20 65 26 60 01/26/20 14:43 69 21 154/104 99 01/26/20 14:14 154/104 01/26/20 14:13 69 21 154/104 99 01/26/20 12:00 Mechanical Ventilator Mechanical Ventilator 01/26/20 12:00 98.1 59 21 154/104 (121) 95 01/26/20 12:00 40 01/26/20 11:30 64 01/26/20 11:23 63 29 100 60 61 15 01/26/20 09:21 152/72 01/26/20 09:21 77 152/72 01/26/20 09:20 77 152/72 Height (Feet): 5 Height (Inches): 6.00 Weight (Pounds): 150 Gen: NAD HEENT: NCAT, +trach CV: RRR Pulm: CTAB on vent Abd: Non-distended, +PEG with skin intact but browish discharge on dressing Ext: No c/c/e Skin: No visible rashes Neuro: Awake, minimally interactive Lines: L fem HD cath Microbiology Date/Time Source Procedure Growth Status 01/26/20 15:20 Other(Specify in comment) Gram Stain - Final Resulted 01/26/20 15:20 Other(Specify in comment) Wound Culture Pending Resulted Laboratory Tests Test 01/27/20 03:55 White Blood Count 10.2 K/UL (4.8-10.8) Red Blood Count 2.56 M/UL (4.20-5.40) L Hemoglobin 7.2 G/DL (12.0-16.0) L Hematocrit 20.9 % (37.0-47.0) L Mean Corpuscular Volume 82 FL (80-99) Mean Corpuscular Hemoglobin 28.2 PG (27.0-31.0) Mean Corpuscular Hemoglobin Concent 34.4 G/DL (32.0-36.0) Red Cell Distribution Width 14.9 % (11.6-14.8) H Platelet Count 200 K/UL (150-450) Mean Platelet Volume 6.8 FL (6.5-10.1) Neutrophils (%) (Auto) % (45.0-75.0) Lymphocytes (%) (Auto) % (20.0-45.0) Monocytes (%) (Auto) % (1.0-10.0) Eosinophils (%) (Auto) % (0.0-3.0) Basophils (%) (Auto) % (0.0-2.0) Neutrophils % (Manual) Pending Lymphocytes % (Manual) Pending Platelet Estimate Pending Platelet Morphology Pending Sodium Level Pending Potassium Level Pending Chloride Level Pending Carbon Dioxide Level Pending Blood Urea Nitrogen Pending Creatinine Pending Estimat Glomerular Filtration Rate Pending Glucose Level Pending Calcium Level Pending Total Bilirubin Pending Aspartate Amino Transf (AST/SGOT) Pending Alanine Aminotransferase (ALT/SGPT) Pending Alkaline Phosphatase Pending Total Protein Pending Albumin Pending Globulin Pending Amylase Level Pending Lipase Pending Current Medications Medications (Trade) Dose Ordered Sig/Penny Route PRN Reason Start Time Stop Time Status Last Admin Dose Admin Acetaminophen (Tylenol) 500 mg Q6H PRN GT FEVER 01/21/20 20:45 02/20/20 20:44 01/24/20 17:13 Amlodipine Besylate (Norvasc) 5 mg BID GT 01/22/20 18:00 02/20/20 15:44 01/26/20 18:27 Aspirin (ASA) 81 mg DAILY GT 01/20/20 09:00 03/05/20 08:59 01/25/20 09:17 Atorvastatin Calcium (Lipitor) 10 mg BEDTIME GT 01/17/20 21:00 04/16/20 20:59 01/26/20 21:31 Chlorhexidine Gluconate (Ling-Hex 2%) 1 applic DAILY@1999 TOPIC 01/17/20 20:00 04/16/20 19:59 01/26/20 20:03 Dextrose (Dextrose 50%) 25 ml Q30M PRN IV Hypoglycemia 01/15/20 22:15 04/14/20 22:14 Dextrose (Dextrose 50%) 50 ml Q30M PRN IV Hypoglycemia 01/15/20 22:15 04/14/20 22:14 01/22/20 17:54 Epoetin Gelacio (Epoetin Gelacio(ESRD on dialysis)) 10,000 unit MON-MON-MON SUBQ 01/27/20 21:00 04/26/20 20:59 Hydralazine HCl (Apresoline) 25 mg Q6HR GT 01/26/20 18:15 04/25/20 18:14 01/27/20 06:01 Isosorbide Dinitrate (Isordil) 20 mg TID GT 01/25/20 09:00 02/19/20 08:59 01/26/20 18:27 Lansoprazole (Prevacid) 30 mg BID GT 01/19/20 18:00 02/18/20 17:59 01/26/20 18:27 Lorazepam (Ativan 2mg/ml 1ml) 0.5 mg EVERY 8 HOURS IV 01/23/20 22:00 01/30/20 21:59 01/27/20 06:01 Meropenem 500 mg/ Sodium Chloride 55 ml @ 110 mls/hr Q12HR IVPB 01/26/20 21:00 01/27/20 10:29 01/26/20 21:50 Metoclopramide HCl (Reglan) 5 mg Q6H PRN IVP Nausea & Vomiting 01/15/20 22:15 02/14/20 22:14 Metoprolol Tartrate (Lopressor) 25 mg Q12HR ORAL 01/23/20 09:00 04/22/20 08:59 01/26/20 21:31 Tobramycin Sulfate (Nebcin) 300 mg Q12HRT INH 01/23/20 22:00 01/29/20 09:59 01/26/20 22:49 Zinc Oxide (Zinc Oxide) 1 applic TIDPRN PRN TOPIC diogenes GT 01/16/20 13:15 04/15/20 13:14 01/16/20 14:55 Ro Pack M.D. Jan 27, 2020 08:27
[2020-01-27] MEDS: Metoprolol Tartrate 12.5mg TAB ORAL SCH (09:04)
[2020-01-27] MEDS: Aspirin Baby 81mg GT SCH (09:04)
--- NOTE | 2020-01-27 09:14 | General Progress Note ---
Subjective ROS Limited/Unobtainable: No Allergies: Coded Allergies: No Known Allergies (Unverified , 10/10/17) Objective Last 24 Hour Vital Signs Date Time Temp Pulse Resp B/P (MAP) Pulse Ox O2 Delivery O2 Flow Rate FiO2 01/27/20 09:04 145/65 01/27/20 09:04 73 145/65 01/27/20 09:04 73 145/65 01/27/20 08:55 40 01/27/20 08:00 99.3 73 24 145/65 (91) 98 01/27/20 07:05 73 32 60 01/27/20 06:31 68 22 151/68 100 01/27/20 06:01 151/68 01/27/20 06:01 68 22 151/68 100 01/27/20 04:00 98.1 72 22 151/68 (95) 100 01/27/20 04:00 68 01/27/20 04:00 Mechanical Ventilator Mechanical Ventilator 01/27/20 04:00 40 01/27/20 03:12 70 20 60 01/27/20 00:27 163/69 01/27/20 00:00 40 01/27/20 00:00 68 01/27/20 00:00 Mechanical Ventilator Mechanical Ventilator 01/27/20 00:00 97.9 72 22 136/64 (88) 100 01/26/20 22:50 70 24 99 Mechanical Ventilator 60 72 24 60 01/26/20 22:02 71 24 150/70 100 01/26/20 21:32 71 24 150/70 100 01/26/20 21:31 71 150/70 01/26/20 20:00 40 01/26/20 20:00 Mechanical Ventilator Mechanical Ventilator 01/26/20 20:00 77 01/26/20 20:00 98.1 74 22 150/75 (100) 100 01/26/20 19:30 71 24 60 01/26/20 18:27 150/70 01/26/20 18:27 150/70 01/26/20 18:27 99 150/70 01/26/20 16:00 97.7 99 22 150/70 (96) 100 01/26/20 16:00 Mechanical Ventilator Mechanical Ventilator 01/26/20 16:00 40 01/26/20 15:30 64 01/26/20 15:20 65 26 60 01/26/20 14:43 69 21 154/104 99 01/26/20 14:14 154/104 01/26/20 14:13 69 21 154/104 99 01/26/20 12:00 Mechanical Ventilator Mechanical Ventilator 01/26/20 12:00 98.1 59 21 154/104 (121) 95 01/26/20 12:00 40 01/26/20 11:30 64 01/26/20 11:23 63 29 100 60 61 15 01/26/20 09:21 152/72 01/26/20 09:21 77 152/72 01/26/20 09:20 77 152/72 Intake and Output 01/26/20 01/27/20 19:02 07:02 Intake Total 635 ml Output Total 350 ml Balance 285 ml Free Water 250 ml Tube Feeding 385 ml Output Urine Total 350 ml # Bowel Movements 1 Laboratory Tests 01/27/20 03:55: White Blood Count 10.2, Red Blood Count 2.56L, Hemoglobin 7.2L, Hematocrit 20.9L , Mean Corpuscular Volume 82, Mean Corpuscular Hemoglobin 28.2, Mean Corpuscular Hemoglobin Concent 34.4, Red Cell Distribution Width 14.9H, Platelet Count 200, Mean Platelet Volume 6.8, Neutrophils (%) (Auto) , Lymphocytes (%) (Auto) , Monocytes (%) (Auto) , Eosinophils (%) (Auto) , Basophils (%) (Auto) , Neutrophils % (Manual) [Pending], Lymphocytes % (Manual) [Pending], Platelet Estimate [Pending], Platelet Morphology [Pending], Sodium Level 140, Potassium Level 4.2, Chloride Level 101, Carbon Dioxide Level 23, Anion Gap 16H, Blood Urea Nitrogen 126H, Creatinine 4.3H, Estimat Glomerular Filtration Rate 11.1, Glucose Level 89, Calcium Level 7.9L, Total Bilirubin 0.5, Aspartate Amino Transf (AST/SGOT) 30, Alanine Aminotransferase (ALT/SGPT) 14, Alkaline Phosphatase 222H, Total Protein 6.9, Albumin 2.1L, Globulin 4.8, Albumin/Globulin Ratio 0.4L, Amylase Level 339H, Lipase > 2000H Height (Feet): 5 Height (Inches): 6.00 Weight (Pounds): 150 General Appearance: lethargic EENT: normal ENT inspection Neck: supple Cardiovascular: normal rate Respiratory/Chest: decreased breath sounds Abdomen: normal bowel sounds, non tender, soft Extremities: non-tender Assessment/Plan Problem List: (1) Hx of CABG ICD Codes: Z95.1 - Presence of aortocoronary bypass graft SNOMED: 600092412, 974188955 (2) History of tracheostomy ICD Codes: Z98.890 - Other specified postprocedural states SNOMED: 467705293, 154345413 (3) PEG (percutaneous endoscopic gastrostomy) status ICD Codes: Z93.1 - Gastrostomy status SNOMED: 567849578, 595606024 (4) S/P aortic dissection repair ICD Codes: Z98.890 - Other specified postprocedural states SNOMED: 192643071, 500681812 (5) Renal failure ICD Codes: N19 - Unspecified kidney failure SNOMED: 59900056, 221505161 (6) Anemia ICD Codes: D64.9 - Anemia, unspecified SNOMED: 897618591 Assessment/Plan: stable H&H at around 7 GTF HD per nephrology persistent elevated lipase\ pending CT Inder Mccauley MD Jan 27, 2020 09:14
[2020-01-27] MEDS: Meropenem 500 MG in NS 55 ML IVPB SCH ×2 (09:39→21:25)
--- NOTE | 2020-01-27 10:22 | NUR ---
NURSE NOTES: Received pt from ERASMO Kennedy at 0730, pt is awake and confused, pt has tracheostomy connected to ventilator AC 14 TV 500 PEEP 5, pt has intact iv access L wrist 22G SL. pt is on continues heart monitoring, Dr Muhammad aware about HB 7.2 Hct 20.9 and other lab results and V/S no new order received. RN called x2 to pt's mom regarding consent for contrast, non body answer, Dr Mccauley is aware and ordered oral contrast is aware, pt is NPO from 0900 am and radiology is aware. All needs attended, bed is locked and is in the lowest position, call light within easy reach. will continue to monitor.
[2020-01-27] MEDS: Tobramycin for inhalation INH SCH ×2 (11:02→22:50)
[2020-01-27 12:00] VITALS: BP 158/74
--- NOTE | 2020-01-27 15:05 | Pulmonology Progress Note ---
Subjective ROS Limited/Unobtainable: Yes Interval Events: s/p HD Constitutional: Reports: no symptoms HEENT: Repors: no symptoms Respiratory: Reports: no symptoms Cardiovascular: Reports: no symptoms Gastrointestinal/Abdominal: Reports: no symptoms Allergies: Coded Allergies: No Known Allergies (Unverified , 10/10/17) All Systems: reviewed and negative except above Objective Last 24 Hour Vital Signs Date Time Temp Pulse Resp B/P (MAP) Pulse Ox O2 Delivery O2 Flow Rate FiO2 01/27/20 14:26 77 20 146/77 99 01/27/20 13:56 60 20 152/69 92 01/27/20 13:00 152/69 01/27/20 12:00 Mechanical Ventilator Mechanical Ventilator 01/27/20 12:00 158/74 01/27/20 12:00 40 01/27/20 12:00 99.1 81 24 158/74 (102) 100 01/27/20 11:43 76 01/27/20 09:04 145/65 01/27/20 09:04 73 145/65 01/27/20 09:04 73 145/65 01/27/20 08:55 40 01/27/20 08:02 75 01/27/20 08:00 Mechanical Ventilator Mechanical Ventilator 01/27/20 08:00 99.3 73 24 145/65 (91) 98 01/27/20 08:00 40 01/27/20 07:05 73 32 60 01/27/20 06:31 68 22 151/68 100 01/27/20 06:01 151/68 01/27/20 06:01 68 22 151/68 100 01/27/20 04:00 98.1 72 22 151/68 (95) 100 01/27/20 04:00 68 01/27/20 04:00 Mechanical Ventilator Mechanical Ventilator 01/27/20 04:00 40 01/27/20 03:12 70 20 60 01/27/20 00:27 163/69 01/27/20 00:00 40 01/27/20 00:00 68 01/27/20 00:00 Mechanical Ventilator Mechanical Ventilator 01/27/20 00:00 97.9 72 22 136/64 (88) 100 01/26/20 22:50 70 24 99 Mechanical Ventilator 60 72 24 60 01/26/20 22:02 71 24 150/70 100 01/26/20 21:32 71 24 150/70 100 01/26/20 21:31 71 150/70 01/26/20 20:00 40 01/26/20 20:00 Mechanical Ventilator Mechanical Ventilator 01/26/20 20:00 77 01/26/20 20:00 98.1 74 22 150/75 (100) 100 01/26/20 19:30 71 24 60 01/26/20 18:27 150/70 01/26/20 18:27 150/70 01/26/20 18:27 99 150/70 01/26/20 16:00 97.7 99 22 150/70 (96) 100 01/26/20 16:00 Mechanical Ventilator Mechanical Ventilator 01/26/20 16:00 40 01/26/20 15:30 64 01/26/20 15:20 65 26 60 Intake and Output 01/26/20 01/27/20 19:00 07:00 Intake Total 635 ml Output Total 350 ml Balance 285 ml Free Water 250 ml Tube Feeding 385 ml Output Urine Total 350 ml # Bowel Movements 1 Objective 01/27/2020 trach site clean, no leakage; saturating 99% on vent 01/21/2020 trach site clean, no leakage noted; currently saturating 98% with AC 14, TV 500 FiO2 50%, PEEP 5. 01/20/2020 tracheostomy site clean, vent dependent patient, no leakage noted General Appearance: no acute distress HEENT: normocephalic, other - trach Respiratory: chest wall non-tender, other - coarse lung sounds Cardiovascular: normal rate, regular rhythm Abdomen: soft, non tender Genitourinary: other - Norman Extremities: other - trace edema Microbiology Date/Time Source Procedure Growth Status 01/26/20 15:20 Other(Specify in comment) Gram Stain - Final Resulted 01/26/20 15:20 Wound Culture - Preliminary Gram Negative Bacillus 1 Resulted Laboratory Tests 01/27/20 03:55: White Blood Count 10.2, Red Blood Count 2.56L, Hemoglobin 7.2L, Hematocrit 20.9L , Mean Corpuscular Volume 82, Mean Corpuscular Hemoglobin 28.2, Mean Corpuscular Hemoglobin Concent 34.4, Red Cell Distribution Width 14.9H, Platelet Count 200, Mean Platelet Volume 6.8, Neutrophils (%) (Auto) , Lymphocytes (%) (Auto) , Monocytes (%) (Auto) , Eosinophils (%) (Auto) , Basophils (%) (Auto) , Differential Total Cells Counted 100, Neutrophils % (Manual) 87H, Lymphocytes % (Manual) 10L, Monocytes % (Manual) 3, Eosinophils % (Manual) 0, Basophils % (Manual) 0, Band Neutrophils 0, Platelet Estimate Adequate, Platelet Morphology Normal, Hypochromasia 1+, Anisocytosis 1+, Sodium Level 140, Potassium Level 4.2, Chloride Level 101, Carbon Dioxide Level 23, Anion Gap 16H, Blood Urea Nitrogen 126H, Creatinine 4.3H, Estimat Glomerular Filtration Rate 11.1, Glucose Level 89, Calcium Level 7.9L, Total Bilirubin 0.5, Aspartate Amino Transf (AST/SGOT) 30, Alanine Aminotransferase (ALT/SGPT) 14, Alkaline Phosphatase 222H , Total Protein 6.9, Albumin 2.1L, Globulin 4.8, Albumin/Globulin Ratio 0.4L, Amylase Level 339H, Lipase > 2000H Current Medications Medications (Trade) Dose Ordered Sig/Penny Route PRN Reason Start Time Stop Time Status Last Admin Dose Admin Acetaminophen (Tylenol) 500 mg Q6H PRN GT FEVER 01/21/20 20:45 02/20/20 20:44 01/24/20 17:13 Amlodipine Besylate (Norvasc) 5 mg BID GT 01/22/20 18:00 02/20/20 15:44 01/27/20 09:04 Aspirin (ASA) 81 mg DAILY GT 01/20/20 09:00 03/05/20 08:59 01/27/20 09:04 Atorvastatin Calcium (Lipitor) 10 mg BEDTIME GT 01/17/20 21:00 04/16/20 20:59 01/26/20 21:31 Chlorhexidine Gluconate (Ling-Hex 2%) 1 applic DAILY@2000 TOPIC 01/17/20 20:00 04/16/20 19:59 01/26/20 20:03 Dextrose (Dextrose 50%) 25 ml Q30M PRN IV Hypoglycemia 01/15/20 22:15 04/14/20 22:14 Dextrose (Dextrose 50%) 50 ml Q30M PRN IV Hypoglycemia 01/15/20 22:15 04/14/20 22:14 01/22/20 17:54 Epoetin Gelacio (Epoetin Gelacio(ESRD on dialysis)) 10,000 unit MON-MON-MON SUBQ 01/27/20 21:00 04/26/20 20:59 Hydralazine HCl (Apresoline) 25 mg Q6HR GT 01/26/20 18:15 04/25/20 18:14 01/27/20 06:01 Isosorbide Dinitrate (Isordil) 20 mg TID GT 01/25/20 09:00 02/19/20 08:59 01/27/20 09:04 Lansoprazole (Prevacid) 30 mg BID GT 01/19/20 18:00 02/18/20 17:59 01/27/20 09:04 Lorazepam (Ativan 2mg/ml 1ml) 0.5 mg EVERY 8 HOURS IV 01/23/20 22:00 01/30/20 21:59 01/27/20 13:56 Meropenem 500 mg/ Sodium Chloride 55 ml @ 110 mls/hr Q12HR IVPB 01/27/20 09:00 02/01/20 08:59 01/27/20 09:39 Metoclopramide HCl (Reglan) 5 mg Q6H PRN IVP Nausea & Vomiting 01/15/20 22:15 02/14/20 22:14 Metoprolol Tartrate (Lopressor) 25 mg Q12HR ORAL 01/27/20 21:00 04/22/20 20:59 Tobramycin Sulfate (Nebcin) 300 mg Q12HRT INH 01/23/20 22:00 01/29/20 09:59 01/27/20 11:02 Zinc Oxide (Zinc Oxide) 1 applic TIDPRN PRN TOPIC diogenes GT 01/16/20 13:15 04/15/20 13:14 01/16/20 14:55 Assessment/Plan Assessment/Plan 1. Large left effusion. - S/p thoracentesis; CXR better 2. Chronic respiratory failure. - on trach - Cont AC mode - Currently saturating at 99% 3. Sepsis; improving - WBC 26.3 -> 20.5 -> 14.0 -> 10.2 4. Anemia - Hgb 7 -> 9 -> 8.6 -> 7.1 - s/p transfusion - s/p Epogen s/p HD Broad-spectrum antibiotics. Pulmonary hygiene. DVT and GI prophylaxes. We will follow carefully. The care for this patient was discussed with my supervising physician TIme spent for this case was approximately 31 minutes The patient was seen and examined at bedside and all new and available data was reviewed in the patients chart. I agree with the above findings, impression, and plan. (Patient was seen earlier today. Signature timestamp does not reflect patient encounter time) Cruz Álvarez MD Jan 27, 2020 15:05 Elijah Stephen MD Jan 27, 2020 17:00
--- NOTE | 2020-01-27 15:44 | NUR ---
NURSE NOTES: HD started 1230 and finished now with 3lit out put. pt tolerated well. will continue to monitor.
[2020-01-27 16:00] VITALS: BP 147/81
--- NOTE | 2020-01-27 16:04 | NUR ---
CASE MANAGEMENT:REVIEW 01/27/20 SI: SEPSIS. RENAL FAILURE. ANEMIA S/P 4 U TRACH/VENT 99.1 81 24 158/74 100% ON VENT SUPPORT W/40% FIO2 H/H-7.2/20.9 BUN+126 CR+4.4 IS: IV MEROPENEM Q24 TOBRAMYCIN INH Q12 NORVASC GT BID LOPRESSOR GT Q12 ISORDIL GT TID ASA GT QD PREVACID GT BID : STEP DOWN UNIT DCP: FROM [facility] PLAN: EGD WHEN MORE STABLE
--- NOTE | 2020-01-27 16:08 | Surgery Progress Note ---
Surgery Progress Note Subjective Procedure Performed Left femoral temporary hemodialysis catheter insertion Additional Comments jeanne lip remain elevated no n/v comfortable Objective Last 24 Hour Vital Signs Date Time Temp Pulse Resp B/P (MAP) Pulse Ox O2 Delivery O2 Flow Rate FiO2 01/27/20 14:26 77 20 146/77 99 01/27/20 13:56 60 20 152/69 92 01/27/20 13:00 152/69 01/27/20 12:00 Mechanical Ventilator Mechanical Ventilator 01/27/20 12:00 158/74 01/27/20 12:00 40 01/27/20 12:00 99.1 81 24 158/74 (102) 100 01/27/20 11:43 76 01/27/20 09:04 145/65 01/27/20 09:04 73 145/65 01/27/20 09:04 73 145/65 01/27/20 08:55 40 01/27/20 08:02 75 01/27/20 08:00 Mechanical Ventilator Mechanical Ventilator 01/27/20 08:00 99.3 73 24 145/65 (91) 98 01/27/20 08:00 40 01/27/20 07:05 73 32 60 01/27/20 06:31 68 22 151/68 100 01/27/20 06:01 151/68 01/27/20 06:01 68 22 151/68 100 01/27/20 04:00 98.1 72 22 151/68 (95) 100 01/27/20 04:00 68 01/27/20 04:00 Mechanical Ventilator Mechanical Ventilator 01/27/20 04:00 40 01/27/20 03:12 70 20 60 01/27/20 00:27 163/69 01/27/20 00:00 40 01/27/20 00:00 68 01/27/20 00:00 Mechanical Ventilator Mechanical Ventilator 01/27/20 00:00 97.9 72 22 136/64 (88) 100 01/26/20 22:50 70 24 99 Mechanical Ventilator 60 72 24 60 01/26/20 22:02 71 24 150/70 100 01/26/20 21:32 71 24 150/70 100 01/26/20 21:31 71 150/70 01/26/20 20:00 40 01/26/20 20:00 Mechanical Ventilator Mechanical Ventilator 01/26/20 20:00 77 01/26/20 20:00 98.1 74 22 150/75 (100) 100 01/26/20 19:30 71 24 60 01/26/20 18:27 150/70 01/26/20 18:27 150/70 01/26/20 18:27 99 150/70 I&O Intake and Output 01/26/20 01/27/20 19:00 07:00 Intake Total 635 ml Output Total 350 ml Balance 285 ml Free Water 250 ml Tube Feeding 385 ml Output Urine Total 350 ml # Bowel Movements 1 Dressing: saturated Cardiovascular: RSR Respiratory: decreased breath sounds Abdomen: non-tender, present bowel sounds Extremities: edema, no tenderness, no cyanosis Laboratory Tests Test 01/27/20 03:55 White Blood Count 10.2 K/UL (4.8-10.8) Red Blood Count 2.56 M/UL (4.20-5.40) L Hemoglobin 7.2 G/DL (12.0-16.0) L Hematocrit 20.9 % (37.0-47.0) L Mean Corpuscular Volume 82 FL (80-99) Mean Corpuscular Hemoglobin 28.2 PG (27.0-31.0) Mean Corpuscular Hemoglobin Concent 34.4 G/DL (32.0-36.0) Red Cell Distribution Width 14.9 % (11.6-14.8) H Platelet Count 200 K/UL (150-450) Mean Platelet Volume 6.8 FL (6.5-10.1) Neutrophils (%) (Auto) % (45.0-75.0) Lymphocytes (%) (Auto) % (20.0-45.0) Monocytes (%) (Auto) % (1.0-10.0) Eosinophils (%) (Auto) % (0.0-3.0) Basophils (%) (Auto) % (0.0-2.0) Differential Total Cells Counted 100 Neutrophils % (Manual) 87 % (45-75) H Lymphocytes % (Manual) 10 % (20-45) L Monocytes % (Manual) 3 % (1-10) Eosinophils % (Manual) 0 % (0-3) Basophils % (Manual) 0 % (0-2) Band Neutrophils 0 % (0-8) Platelet Estimate Adequate Platelet Morphology Normal Hypochromasia 1+ Anisocytosis 1+ Sodium Level 140 MMOL/L (136-145) Potassium Level 4.2 MMOL/L (3.5-5.1) Chloride Level 101 MMOL/L (98-107) Carbon Dioxide Level 23 MMOL/L (21-32) Anion Gap 16 mmol/L (5-15) H Blood Urea Nitrogen 126 mg/dL (7-18) H Creatinine 4.3 MG/DL (0.55-1.30) H Estimat Glomerular Filtration Rate 11.1 mL/min (>60) Glucose Level 89 MG/DL (74-106) Calcium Level 7.9 MG/DL (8.5-10.1) L Total Bilirubin 0.5 MG/DL (0.2-1.0) Aspartate Amino Transf (AST/SGOT) 30 U/L (15-37) Alanine Aminotransferase (ALT/SGPT) 14 U/L (12-78) Alkaline Phosphatase 222 U/L (46-116) H Total Protein 6.9 G/DL (6.4-8.2) Albumin 2.1 G/DL (3.4-5.0) L Globulin 4.8 g/dL Albumin/Globulin Ratio 0.4 (1.0-2.7) L Amylase Level 339 U/L (25-115) H Lipase > 2000 U/L (73-393) H Plan Problems: (1) Dehydration (2) Acidosis (3) Depression (4) Pleural effusion (5) Respiratory failure (6) Schizophrenia (7) Hypoxia (8) UTI (urinary tract infection) (9) Pneumonia (10) NSTEMI (non-ST elevated myocardial infarction) (11) Tracheostomy in place (12) Feeding by G-tube (13) JAVIER (acute kidney injury) (14) Acute encephalopathy (15) Sacral decubitus ulcer, stage IV (16) Chronic respiratory failure (17) Ascites (18) Bacteremia (19) Hypernatremia (20) Proteinuria (21) Electrolyte imbalance (22) ACS (acute coronary syndrome) (23) Aortic dissection, thoracic (24) Respiratory failure, acute and chronic (25) JAVIER (acute kidney injury) (26) Abrasion of lip, initial encounter (27) COPD with exacerbation (28) Elevated alkaline phosphatase level (29) Renal failure (ARF), acute on chronic (30) HCAP (healthcare-associated pneumonia) (31) GT CLOGGED (32) Elevated lipase (33) Pancreatitis (34) Elevated troponin (35) Hypokalemia (36) Hyponatremia (37) Anemia (38) Renal failure (39) ARF (acute renal failure) (40) Pacemaker (41) Sepsis Assessment & Plan: leukocytosis anemia on HD renal insufficiency wounds addressed pancreatitis cont diet as tolerating trend labs lf'ts okay pt presented on admission with Tracheostomy ,GT and Multiple Pressure Injuries. Skin assessment of skin under tracheal collar without evidence of skin breakdown. Peristomal GT site excoriated.Moderate amt of dark red sanguineous exudate. Full Thickness Sacral Pressure Injury with undermined borders (L)9 cm x (W)12cm x (D)1.8cm,Undermining clockwise8-9 by 2.2cm @1o'clock,undermining clockwise 1-4 by 1.9 @ 9'oclock Scattered necrotic tissue within wound bed. Borders are loose and necrotic with marginal erythema to outer perimeter of wound. NO elevation in skin temp noted periwound. Wound is malodorous. Small amt Brown exudate noted. Resolving Pressure Injury L Ischium(L)1.5cm x (W)1.5cm. Base of wound is 80% pink epithelial with an area that is moist and pink. NO odor or exudate noted. Bilat foot-drop noted. L Heel is boggy with non-blanchable erythema(L)4cm x (W)4cm. R heel is boggy with non-Blanchable erythema(L)5cm x (W)6cm. Tx.Plan: Cleanse sacral wound with Dakin's 0.125% annie. Loosely pack with Dakin's moistened Kerlix(Attention to undermined borders). Apply Moisture Barrier Paste periwound. Cover with Optifoam drsg. Change Daily and PRN. Apply Cavilon Skin Barrier to R and L Hels. Cover each heel with Optifoam drsg. Change every 7 days and prn. Reposition at least every 2hours or as tolerated. Off-load heels with Pillow. APM/JENNIFER MAttress overlay DAILY ESTIMATED NEEDS: Needs based on Critical care, wound, renal dysfunction 56 kg abw 28-33 kcals/kg [id number] total kcals W/ HD (1.5-2.0) g protein/kg 84-112 g total protein Fluid per MD mL/kg . total fluid mLs NUTRITION DIAGNOSIS: * Swallowing difficulty R/T dysphagia, respiratory status as evidenced by vent dep via trach, GT Dep. * Increase kcal and pro needs r/t wound healing, renal dysfunction as evidenced by admitted w/ large, advanced sacral wound, previously stage 4, pending eval, admitted w/ JAVIER, pending HD. CURRENT TF:NPO ENTERAL NUTRITION RECOMMENDATIONS: Nepro @ 40ml/hr x 24 hrs + Prosource 1pkt QD to provide 960ml, 1728kcal, 78g+11g prot, 698ml free water * As medically appropriate, initiate TF on Nepro, rec goal rate fo 40ml/hr x 24 hrs * Add Prosource 1pkt QD to better meet increased protein needs (additional 11g prot) * Water flush per MD/ HOB over 30 degrees ADDITIONAL RECOMMENDATIONS: * Per SNF in NOV 2019: HT=63"/ Rec daily calibrated bedscale wt * Monitor for continuity of HD: non-tunneled cath placement ordered * Monitor lytes and renal fxn for improvement (Na low, K and phos elevated) * Wound care: add Nephrovite x 1, ZnSO4 220mg QD x 10 days Reynaldo BID via PEG (mix w/ 2-4 oz water) * Monitor BG closely for hypoglycemia while NPO (h/o DM, on Nacl 3% to correct hyponatremia, consider accuchecks) (42) Hyponatremia Lane Saavedra Jan 27, 2020 16:07
--- NOTE | 2020-01-27 17:07 | Nephrology Progress Note ---
Assessment/Plan Problem List: (1) ARF (acute renal failure) (2) Pacemaker (3) Sepsis (4) Hyponatremia Assessment (1) JAVIER (acute kidney injury) (2) Renal failure (ARF), acute on chronic (3) Feeding by G-tube (4) Tracheostomy in place (5) Electrolyte imbalance, hyponatremia (6) Anemia, severe (7) Respiratory failure, acute and chronic (8) Elevated lipase, pancreatitis (9) Elevated troponin I (10) Sepsis Plan January 26: When visited the patient earlier today the patient was on dialysis. Tolerating well. Labs reviewed. Blood pressure stable. January 25: Dialysis for tomorrow. Labs reviewed. Hemoglobin remains low. Will adjust blood pressure medication. Hydralazine added to the regimen January 24: Last dialyzed January 22. Labs reviewed. Status quo. Will dialyze as needed. Low hemoglobin noted. Transfusion per PMD decision. Epogen started. \January 23: Dialyzed yesterday. Today's labs reviewed. Continue to monitor renal parameters and arrange for dialysis as needed. Continue per PMD. January 22: Seen earlier during dialysis. Labs reviewed. Medication list reviewed. Continue current management. January 21: Labs reviewed. Medication list reviewed. Next hemodialysis tomorrow. Blood pressure medication adjusted. January 20: Dialyzed yesterday. Labs reviewed. Continue per current management. Dialysis as needed. Add Norvasc to blood pressure regimen January 19: Due for dialysis today. Labs reviewed. Continue her current management. Continue to monitor renal parameters and electrolytes. January 18: Dialyzed yesterday. Labs reviewed. Renal parameters electrolytes much improved. Dialysis again tomorrow. Continue rest. January 17: Dialyzed this morning. Labs reviewed. Renal parameters and electrolyte abnormalities improved. Discussed with RN. Continue per consultants. January 16: Dialyzed yesterday. Labs improved. Next dialysis tomorrow. Continue per consultants. January 15: Patient to have dialysis catheter. Emergency dialysis for correction of uremia and electrolyte imbalances Antibiotics Transfusion Continue to monitor renal parameters Per orders Discussed with RN Subjective ROS Limited/Unobtainable: Yes Objective Objective Last 24 Hour Vital Signs Date Time Temp Pulse Resp B/P (MAP) Pulse Ox O2 Delivery O2 Flow Rate FiO2 01/27/20 14:26 77 20 146/77 99 01/27/20 13:56 60 20 152/69 92 01/27/20 13:00 152/69 01/27/20 12:00 Mechanical Ventilator Mechanical Ventilator 01/27/20 12:00 158/74 01/27/20 12:00 40 01/27/20 12:00 99.1 81 24 158/74 (102) 100 01/27/20 11:43 76 01/27/20 09:04 145/65 01/27/20 09:04 73 145/65 01/27/20 09:04 73 145/65 01/27/20 08:55 40 01/27/20 08:02 75 01/27/20 08:00 Mechanical Ventilator Mechanical Ventilator 01/27/20 08:00 99.3 73 24 145/65 (91) 98 01/27/20 08:00 40 01/27/20 07:05 73 32 60 01/27/20 06:31 68 22 151/68 100 01/27/20 06:01 151/68 01/27/20 06:01 68 22 151/68 100 01/27/20 04:00 98.1 72 22 151/68 (95) 100 01/27/20 04:00 68 01/27/20 04:00 Mechanical Ventilator Mechanical Ventilator 01/27/20 04:00 40 01/27/20 03:12 70 20 60 01/27/20 00:27 163/69 01/27/20 00:00 40 01/27/20 00:00 68 01/27/20 00:00 Mechanical Ventilator Mechanical Ventilator 01/27/20 00:00 97.9 72 22 136/64 (88) 100 01/26/20 22:50 70 24 99 Mechanical Ventilator 60 72 24 60 01/26/20 22:02 71 24 150/70 100 01/26/20 21:32 71 24 150/70 100 01/26/20 21:31 71 150/70 01/26/20 20:00 40 01/26/20 20:00 Mechanical Ventilator Mechanical Ventilator 01/26/20 20:00 77 01/26/20 20:00 98.1 74 22 150/75 (100) 100 01/26/20 19:30 71 24 60 01/26/20 18:27 150/70 01/26/20 18:27 150/70 01/26/20 18:27 99 150/70 Intake and Output 01/26/20 01/27/20 19:00 07:00 Intake Total 635 ml Output Total 350 ml Balance 285 ml Free Water 250 ml Tube Feeding 385 ml Output Urine Total 350 ml # Bowel Movements 1 Laboratory Tests 01/27/20 03:55: White Blood Count 10.2, Red Blood Count 2.56L, Hemoglobin 7.2L, Hematocrit 20.9L , Mean Corpuscular Volume 82, Mean Corpuscular Hemoglobin 28.2, Mean Corpuscular Hemoglobin Concent 34.4, Red Cell Distribution Width 14.9H, Platelet Count 200, Mean Platelet Volume 6.8, Neutrophils (%) (Auto) , Lymphocytes (%) (Auto) , Monocytes (%) (Auto) , Eosinophils (%) (Auto) , Basophils (%) (Auto) , Differential Total Cells Counted 100, Neutrophils % (Manual) 87H, Lymphocytes % (Manual) 10L, Monocytes % (Manual) 3, Eosinophils % (Manual) 0, Basophils % (Manual) 0, Band Neutrophils 0, Platelet Estimate Adequate, Platelet Morphology Normal, Hypochromasia 1+, Anisocytosis 1+, Sodium Level 140, Potassium Level 4.2, Chloride Level 101, Carbon Dioxide Level 23, Anion Gap 16H, Blood Urea Nitrogen 126H, Creatinine 4.3H, Estimat Glomerular Filtration Rate 11.1, Glucose Level 89, Calcium Level 7.9L, Total Bilirubin 0.5, Aspartate Amino Transf (AST/SGOT) 30, Alanine Aminotransferase (ALT/SGPT) 14, Alkaline Phosphatase 222H , Total Protein 6.9, Albumin 2.1L, Globulin 4.8, Albumin/Globulin Ratio 0.4L, Amylase Level 339H, Lipase > 2000H Height (Feet): 5 Height (Inches): 6.00 Weight (Pounds): 150 General Appearance: no apparent distress EENT: other - Trach to vent Cardiovascular: normal rate Respiratory/Chest: decreased breath sounds Abdomen: distended Johnny Houston MD Jan 27, 2020 17:07
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
--- NOTE | 2020-01-27 18:11 | General Progress Note ---
Subjective Constitutional: Reports: no symptoms HEENT: Reports: no symptoms Cardiovascular: Reports: no symptoms Respiratory: Reports: no symptoms Gastrointestinal/Abdominal: Reports: no symptoms Genitourinary: Reports: no symptoms Neurologic/Psychiatric: Reports: anxiety Endocrine: Reports: no symptoms Hematologic/Lymphatic: Reports: no symptoms Allergies: Coded Allergies: No Known Allergies (Unverified , 10/10/17) Objective Last 24 Hour Vital Signs Date Time Temp Pulse Resp B/P (MAP) Pulse Ox O2 Delivery O2 Flow Rate FiO2 01/27/20 17:43 147/81 01/27/20 17:42 147/81 01/27/20 17:42 75 147/81 01/27/20 16:00 98.6 75 23 147/81 (103) 98 01/27/20 15:10 77 01/27/20 15:05 63 14 40 01/27/20 14:26 77 20 146/77 99 01/27/20 13:56 60 20 152/69 92 01/27/20 13:00 152/69 01/27/20 12:00 Mechanical Ventilator Mechanical Ventilator 01/27/20 12:00 158/74 01/27/20 12:00 40 01/27/20 12:00 99.1 81 24 158/74 (102) 100 01/27/20 11:43 76 01/27/20 11:05 77 29 100 Mechanical Ventilator 40 79 17 40 01/27/20 09:04 145/65 01/27/20 09:04 73 145/65 01/27/20 09:04 73 145/65 01/27/20 08:55 40 01/27/20 08:02 75 01/27/20 08:00 Mechanical Ventilator Mechanical Ventilator 01/27/20 08:00 99.3 73 24 145/65 (91) 98 01/27/20 08:00 40 01/27/20 07:05 73 32 60 01/27/20 06:31 68 22 151/68 100 01/27/20 06:01 151/68 01/27/20 06:01 68 22 151/68 100 01/27/20 04:00 98.1 72 22 151/68 (95) 100 01/27/20 04:00 68 01/27/20 04:00 Mechanical Ventilator Mechanical Ventilator 01/27/20 04:00 40 01/27/20 03:12 70 20 60 01/27/20 00:27 163/69 01/27/20 00:00 40 01/27/20 00:00 68 01/27/20 00:00 Mechanical Ventilator Mechanical Ventilator 01/27/20 00:00 97.9 72 22 136/64 (88) 100 01/26/20 22:50 70 24 99 Mechanical Ventilator 60 72 24 60 01/26/20 22:02 71 24 150/70 100 01/26/20 21:32 71 24 150/70 100 01/26/20 21:31 71 150/70 01/26/20 20:00 40 01/26/20 20:00 Mechanical Ventilator Mechanical Ventilator 01/26/20 20:00 77 01/26/20 20:00 98.1 74 22 150/75 (100) 100 01/26/20 19:30 71 24 60 01/26/20 18:27 150/70 01/26/20 18:27 150/70 01/26/20 18:27 99 150/70 Intake and Output 01/26/20 01/27/20 19:00 07:00 Intake Total 635 ml Output Total 350 ml Balance 285 ml Free Water 250 ml Tube Feeding 385 ml Output Urine Total 350 ml # Bowel Movements 1 Laboratory Tests 01/27/20 03:55: White Blood Count 10.2, Red Blood Count 2.56L, Hemoglobin 7.2L, Hematocrit 20.9L , Mean Corpuscular Volume 82, Mean Corpuscular Hemoglobin 28.2, Mean Corpuscular Hemoglobin Concent 34.4, Red Cell Distribution Width 14.9H, Platelet Count 200, Mean Platelet Volume 6.8, Neutrophils (%) (Auto) , Lymphocytes (%) (Auto) , Monocytes (%) (Auto) , Eosinophils (%) (Auto) , Basophils (%) (Auto) , Differential Total Cells Counted 100, Neutrophils % (Manual) 87H, Lymphocytes % (Manual) 10L, Monocytes % (Manual) 3, Eosinophils % (Manual) 0, Basophils % (Manual) 0, Band Neutrophils 0, Platelet Estimate Adequate, Platelet Morphology Normal, Hypochromasia 1+, Anisocytosis 1+, Sodium Level 140, Potassium Level 4.2, Chloride Level 101, Carbon Dioxide Level 23, Anion Gap 16H, Blood Urea Nitrogen 126H, Creatinine 4.3H, Estimat Glomerular Filtration Rate 11.1, Glucose Level 89, Calcium Level 7.9L, Total Bilirubin 0.5, Aspartate Amino Transf (AST/SGOT) 30, Alanine Aminotransferase (ALT/SGPT) 14, Alkaline Phosphatase 222H , Total Protein 6.9, Albumin 2.1L, Globulin 4.8, Albumin/Globulin Ratio 0.4L, Amylase Level 339H, Lipase > 2000H Height (Feet): 5 Height (Inches): 6.00 Weight (Pounds): 150 General Appearance: WD/WN, alert, lethargic EENT: normal ENT inspection Neck: normal alignment, supple Cardiovascular: normal rate, regular rhythm, no gallop/murmur Respiratory/Chest: no respiratory distress, no accessory muscle use, decreased breath sounds Abdomen: normal bowel sounds, non tender, soft, no organomegaly, no mass Extremities: non-tender Neurologic: alert, responsive Assessment/Plan Status Narrative Patient is awake alert eye contact but no verbal response to the treatment nearly completely resolved afebrile she is still on meropenem and tobramycin CT now and normal for the last 48 hours tolerated dialysis well scan of the abdomen and pelvis was done today that revealed the presence of known intertrochanteric trochanteric fracture disease of both/liver cyst anasarca and the possibility of aortic aneurysm and dissection of the thoracic aorta clinically patient appears stable consulted be called to assist in the management of this case laboratory tests will be done in a.m. Lucas Canales MD, MD Jan 27, 2020 18:11
--- NOTE | 2020-01-27 19:21 | NUR ---
NURSE HAND-OFF REPORT: Important Events on Shift: Patient Status: Diet: Pending Orders: Pending Results/Labs: Pending MD notification: Latest Vital Signs: Temperature 98.6 , Pulse 75 , B/P 147 /81 , Respiratory Rate 23 , O2 SAT 98 , Mechanical Ventilator, O2 Flow Rate . Vital Sign Comment: EKG Rhythm: Sinus Rhythm Rhythm change?: N MD Notified?: Gabriel Willams MD Response: Order Received& Read Back Latest Chavarria Fall Score: 70 Fall Risk: High Risk Safety Measures: Call light Within Reach, Bed Alarm Zone 1, Side Rails Side Rails x3, Bed position Low and Locked. Fall Precautions: Yellow Socks Report given to . Pt is awake and stable, no stress noted, Endorsed plan of care, endorsed to monitor RR and SPO2.
[2020-01-27 20:00] VITALS: BP 142/70
[2020-01-27] MEDS: Dyna-Hex 2% Top Sol 2oz TOPIC SCH (21:24)
[2020-01-27] MEDS: Epoetin Alfa-EPBX(ESRD on dialysis)10,000 unit/ml vial SUBQ SCH (21:24)
[2020-01-28] VITALS: BP 126/71
--- NOTE | 2020-01-28 | NUR ---
NURSE NOTES: Ativan given as per schedule. Patient toleratred med well. No ASE noted. No acute distress noted. Will continue to monitor.
[2020-01-28] MEDS: HydrALAZINE 25mg tab GT SCH ×5 (00:14→18:25)
--- NOTE | 2020-01-28 01:46 | Cardiology Progress Note ---
Subjective DATE OF SERVICE: Jan 27, 2020 Remains in atrial fibrillation; rates controlled. Occasional PVC's - non- sustained BP range stable Full vent support via trach s/p left thorocentesis 01/22/20 Low hemoglobin; on epogen Objective Last 24 Hour Vital Signs Date Time Temp Pulse Resp B/P (MAP) Pulse Ox O2 Delivery O2 Flow Rate FiO2 01/28/20 00:14 152/71 01/28/20 00:00 Mechanical Ventilator Mechanical Ventilator 01/28/20 00:00 99.1 79 23 126/71 (89) 98 01/28/20 00:00 75 01/28/20 00:00 40 01/27/20 22:50 81 20 99 Mechanical Ventilator 40 84 16 40 01/27/20 21:54 67 23 142/70 98 01/27/20 21:25 67 142/70 01/27/20 21:24 67 23 142/70 98 01/27/20 20:00 Mechanical Ventilator Mechanical Ventilator 01/27/20 20:00 98.1 67 23 142/70 (94) 98 01/27/20 20:00 40 01/27/20 20:00 74 01/27/20 19:12 71 18 40 01/27/20 17:43 147/81 01/27/20 17:42 147/81 01/27/20 17:42 75 147/81 01/27/20 16:00 98.6 75 23 147/81 (103) 98 01/27/20 16:00 Mechanical Ventilator Mechanical Ventilator 01/27/20 16:00 40 01/27/20 15:10 77 01/27/20 15:05 63 14 40 01/27/20 14:26 77 20 146/77 99 01/27/20 13:56 60 20 152/69 92 01/27/20 13:00 152/69 01/27/20 12:00 Mechanical Ventilator Mechanical Ventilator 01/27/20 12:00 158/74 01/27/20 12:00 40 01/27/20 12:00 99.1 81 24 158/74 (102) 100 01/27/20 11:43 76 01/27/20 11:05 77 29 100 Mechanical Ventilator 40 79 17 40 01/27/20 09:04 145/65 01/27/20 09:04 73 145/65 01/27/20 09:04 73 145/65 01/27/20 08:55 40 01/27/20 08:02 75 01/27/20 08:00 Mechanical Ventilator Mechanical Ventilator 01/27/20 08:00 99.3 73 24 145/65 (91) 98 01/27/20 08:00 40 01/27/20 07:05 73 32 60 01/27/20 06:31 68 22 151/68 100 01/27/20 06:01 151/68 01/27/20 06:01 68 22 151/68 100 01/27/20 04:00 98.1 72 22 151/68 (95) 100 01/27/20 04:00 68 01/27/20 04:00 Mechanical Ventilator Mechanical Ventilator 01/27/20 04:00 40 01/27/20 03:12 70 20 60 ROS: unchanged for 01/17/20 HEENT: Mechanically Ventilated, Thick Trach secretions RHYTHM: Afib LUNGS: bilateral rhonchi, trach site clean CARDIAC: normal S1 and S2, irregularly irregular ABDOMEN: normal bowel sounds, non tender, soft, G-Tube intact EXTREMITIES: normal inspection, trace edema Laboratory Tests Test 01/27/20 03:55 White Blood Count 10.2 K/UL (4.8-10.8) Red Blood Count 2.56 M/UL (4.20-5.40) L Hemoglobin 7.2 G/DL (12.0-16.0) L Hematocrit 20.9 % (37.0-47.0) L Mean Corpuscular Volume 82 FL (80-99) Mean Corpuscular Hemoglobin 28.2 PG (27.0-31.0) Mean Corpuscular Hemoglobin Concent 34.4 G/DL (32.0-36.0) Red Cell Distribution Width 14.9 % (11.6-14.8) H Platelet Count 200 K/UL (150-450) Mean Platelet Volume 6.8 FL (6.5-10.1) Neutrophils (%) (Auto) % (45.0-75.0) Lymphocytes (%) (Auto) % (20.0-45.0) Monocytes (%) (Auto) % (1.0-10.0) Eosinophils (%) (Auto) % (0.0-3.0) Basophils (%) (Auto) % (0.0-2.0) Differential Total Cells Counted 100 Neutrophils % (Manual) 87 % (45-75) H Lymphocytes % (Manual) 10 % (20-45) L Monocytes % (Manual) 3 % (1-10) Eosinophils % (Manual) 0 % (0-3) Basophils % (Manual) 0 % (0-2) Band Neutrophils 0 % (0-8) Platelet Estimate Adequate Platelet Morphology Normal Hypochromasia 1+ Anisocytosis 1+ Sodium Level 140 MMOL/L (136-145) Potassium Level 4.2 MMOL/L (3.5-5.1) Chloride Level 101 MMOL/L (98-107) Carbon Dioxide Level 23 MMOL/L (21-32) Anion Gap 16 mmol/L (5-15) H Blood Urea Nitrogen 126 mg/dL (7-18) H Creatinine 4.3 MG/DL (0.55-1.30) H Estimat Glomerular Filtration Rate 11.1 mL/min (>60) Glucose Level 89 MG/DL (74-106) Calcium Level 7.9 MG/DL (8.5-10.1) L Total Bilirubin 0.5 MG/DL (0.2-1.0) Aspartate Amino Transf (AST/SGOT) 30 U/L (15-37) Alanine Aminotransferase (ALT/SGPT) 14 U/L (12-78) Alkaline Phosphatase 222 U/L (46-116) H Total Protein 6.9 G/DL (6.4-8.2) Albumin 2.1 G/DL (3.4-5.0) L Globulin 4.8 g/dL Albumin/Globulin Ratio 0.4 (1.0-2.7) L Amylase Level 339 U/L (25-115) H Lipase > 2000 U/L (73-393) H Microbiology Date/Time Source Procedure Growth Status 01/26/20 15:20 Other(Specify in comment) Gram Stain - Final Resulted 01/26/20 15:20 Wound Culture - Preliminary Gram Negative Bacillus 1 Resulted Assessment/Plan Assessment/Plan Chronic respiratory failure with trach Severe sepsis PAFib with rapid ventric response. Ischemic cardiomyopathy - hx CABG and s/p NSTEMI in Dec 2019. Conduction system disease of the heart Hx of permanent pacemaker explant Acute on chronic systolic and diastolic CHF Pleural effusion Hypertension/HHD with labile BP. Hx aneurysm Avoid beta flori therapy based on hx symptomatic bradycardia. Anti-failure and anti-anginal regimen with titration Vent support Abx per ID Continuous cardiac monitoring Anti-HTN regimen advanced. Deni Willams MD Jan 28, 2020 01:46
[2020-01-28 04:00] VITALS: BP 144/79
[2020-01-28 04:59] LABS: HEMATOCRIT 23.5 % (37.0-47.0); HEMOGLOBIN 7.9 G/DL (12.0-16.0); MEAN CORPUSCULAR VOLUME 84 FL (80-99); PLATELET COUNT 230 K/UL (150-450); RED BLOOD COUNT 2.79 M/UL (4.20-5.40); RED CELL DISTRIBUTION WIDTH 14.8 % (11.6-14.8); WHITE BLOOD COUNT 8.3 K/UL (4.8-10.8)
[2020-01-28 05:42] LABS: ALBUMIN 2.1 G/DL (3.4-5.0); ALBUMIN/GLOBULIN RATIO 0.4 (1.0-2.7); BILIRUBIN,TOTAL 0.4 MG/DL (0.2-1.0); CALCIUM 7.9 MG/DL (8.5-10.1); CREATININE 3.4 MG/DL (0.55-1.30); POTASSIUM 3.9 MMOL/L (3.5-5.1)
[2020-01-28 06:02] LABS: AMYLASE 278 U/L (25-115)
[2020-01-28] MEDS: LORazepam Inj 2mg/ml 1ml IV SCH ×3 (06:20→22:55)
--- NOTE | 2020-01-28 07:15 | NUR ---
NURSE HAND-OFF REPORT: Important Events on Shift:Post HD Patient Status: Stable Diet: GT Pending Orders: Pending Results/Labs: Pending MD notification: Latest Vital Signs: Temperature 98.3 , Pulse 76 , B/P 144 /79 , Respiratory Rate 23 , O2 SAT 98 , Mechanical Ventilator, O2 Flow Rate . Vital Sign Comment: EKG Rhythm: Sinus Rhythm Rhythm change?: N MD Notified?: Gabriel Willams MD Response: Order Received& Read Back Latest Chavarria Fall Score: 70 Fall Risk: High Risk Safety Measures: Call light Within Reach, Bed Alarm Zone 1, Side Rails Side Rails x3, Bed position Low and Locked. Fall Precautions: Yellow Socks Report given to ERASMO Sen.
--- NOTE | 2020-01-28 07:26 | NUR ---
NURSE NOTES: Received report from ERASMO Moseley. Patient is resting in bed, in stable condition. No s/sx of SOB, breathing is even and unlabored. Patient is nonverbal, observed no presence of pain or discomfort at this time. Bed is in lowest position, brakes engaged. Call light is kept within easy reach. Will continue to monitor patient.
--- NOTE | 2020-01-28 07:33 | Infectious Diseases Prog Note ---
Assessment/Plan 49yo F with: AF Sepsis Leukocytosis Hypoxia on vent Pneumonia c/b L pleural effusion (recurrent, prior determined to be transudative) - s/p thora 01/21, 1050cc removed Volume overload, BNP >35,0000, likely 2/2 progressive CKD --> ESRD ?Pancreatitis, Lipase >2000 Acute anemia to 5s CONS bacteremia, ?contaminant Aflutter w/ RVR 01/13 BCx 2/2 +S. epi COVID PCR neg Flu neg CXR: Large left pleural effusion. Bilateral interstitial and airspace infiltrates versus edema MRSA nares neg 01/16 BCx NTD 01/17 BCx / +Staph auricularis (skin colonizer) 01/18 Resp cx +MDR CRE PsA (S-gent, I-colistin, R-polyB) 01/18 C.dif neg 01/18 CXR: Similar opacification of the left hemithorax likely representing combination of pleural effusion with atelectasis versus pneumonia/edema. Decreased but persistent hazy opacity throughout the right lung may represent edema versus infectious/inflammatory process. 01/20 BCx NTD 01/21 L thora 1050 cc removed, cx NTD 01/25 Wound cx from Gtube site +CRE Kleb pna (arnett-R) and GNRs 01/26 CT A/P: Limited exam, due to severe diffuse anasarca. Ascites. Bilateral pleural effusions. Basilar pulmonary atelectatic changes and consolidation. Gastrostomy. Atrophic left kidney with a nephroureteral stents again demonstrated. Possible retrococcygeal decubitus changes. Correlate with clinical findings, consider MRI if there is concern for sacral osteomyelitis. Right hip intertrochanteric fracture, also previously demonstrated. Left femoral dialysis catheter. Nonspecific right lobe liver lesion is unchanged, not well- demonstrated. ctasia bordering on aneurysmal dilatation and possible chronic dissection of the distal thoracic aorta, also previously described. JAVIER on CKD On previous admission Sep-Oct 2019 required HD for short period Going to start HD this admission again R/o COVID / COVID PCR neg 12/29 neg at [facility] per report H/o UTI 10/15 u/a wbc 30-40, nit neg, leuk +3; ucx ESBL P. mirablis, ESBL M. morganii //20 u/a wbc tnct, nit neg, leuk +3; ucx >100k MDR P. stuarti (S Ceftri axone, Meropenem) 10/07 u/a wbc tnct, nit neg, leuk ; ucx >100k VRE 10/15/19 u/a wbc tnct; ucx >100k ESBL P. stuarti (S ertapenem, aztreonam) H/o transudative pleural effusion 11/28 Sp Thora (w: 169, PMN: 2%, L: 49% , LDH: 57, prot 2.5); cx Neg H/o PNA 10/15/19 Resp cx ESBL P. mirabilis, MDR P.a. (S only to Gent) 09/22 Resp cx + MDR PsA (S-gent; I-colistin; R-levofloxacin, Zosyn, angelo) 09/16/19 Sp cx ESBL P. mirablis H/o PPM site (pocket) infection and pocket abscess 2ry to S. epi-11/2018, sp >6weeks IV vancomycin 11/27 SP ABBIE: no evidence for vegetation on any of the valves 11/26/18 SP PPM removal: OR findings:The fibrous capsule enclosing the generator was then opened and there was a [id number] amount of yellowish fluid drainage. The generator was then removed.Atrial and ventricular leads were detached. The necrotic tissue of the pocket was then removed and the pocket was flushed with an antibiotic solution. Capsule, wound tissue and lead tip cx: Neg 2d echo: no vegetation seen US chest: 4.6 x 3.4 x 0.9 cm hypoechoic/anechoic area overlying left chest pacemaker power pack. This could represent either a discrete fluid collection or a focal area of very edematous tissue. Infected fluid pocket also possible. 11/18 Bcx 3/4 S. epi; 11/20 Bcx neg; 11/24 Bcx Neg; 11/27 Bcx Neg CAD s/p CABG GERD/gastritis Afib HTN Dysphagia sp GT Aortic dissection s/p repair 2017 S/p PPM Parkinson's Disease Schizophrenia Anxiety COPD Chronic resp failure s/p trach Hx of tracheal bleeding [place] ([facility]) VRE and MRSA colonized Plan: Cont inhaled tobramycin #7/ given MDR PsA in resp cx Cont meropenem #01/27 Wound not treat CRE Kleb pna from G-tube cx, likely colonizer and no signs of active infection in that area Trend resp status, secretions F/u G-tube cx 01/25 +GNRs F/u Micro lab to perform sensi on MDR PsA from resp cx on Avycaz and Zerbaxa 01/23 SP vanco IV #10 given CONS/GPC bacteremia 01/16 SP Zosyn #2 01/14 SP dex 10mg in ED 12/10 SP IV Gentamycin #10 12/07 SP Meropenem #10 12/01 SP IV Vancomycin #5 11/28 Sp Cefepime #2 and IV Gentamycin x1 Monitor CBC/CMP Monitor temp curve, hemodynamics Monitor resp status D/w RN Thank you for this consult. [facility] will continue to follow. Subjective Allergies: Coded Allergies: No Known Allergies (Unverified , 10/10/17) AF WBC 8.3, improving NAD on vent 40% PEEP 5 Wound cx from G-tube w/ CRE Kleb pna, arnett-R Objective Last 24 Hour Vital Signs Date Time Temp Pulse Resp B/P (MAP) Pulse Ox O2 Delivery O2 Flow Rate FiO2 01/28/20 06:50 76 23 144/79 98 01/28/20 06:20 144/79 01/28/20 06:20 76 23 144/79 98 01/28/20 04:00 Mechanical Ventilator Mechanical Ventilator 01/28/20 04:00 98.3 79 23 144/79 (100) 98 01/28/20 04:00 76 01/28/20 04:00 40 01/28/20 03:15 72 18 Mechanical Ventilator 40 01/28/20 00:14 152/71 01/28/20 00:00 Mechanical Ventilator Mechanical Ventilator 01/28/20 00:00 99.1 79 23 126/71 (89) 98 01/28/20 00:00 75 01/28/20 00:00 40 01/27/20 22:50 81 20 99 Mechanical Ventilator 40 84 16 40 01/27/20 21:54 67 23 142/70 98 01/27/20 21:25 67 142/70 01/27/20 21:24 67 23 142/70 98 01/27/20 20:00 Mechanical Ventilator Mechanical Ventilator 01/27/20 20:00 98.1 67 23 142/70 (94) 98 01/27/20 20:00 40 01/27/20 20:00 74 01/27/20 19:12 71 18 40 01/27/20 17:43 147/81 01/27/20 17:42 147/81 01/27/20 17:42 75 147/81 01/27/20 16:00 98.6 75 23 147/81 (103) 98 01/27/20 16:00 Mechanical Ventilator Mechanical Ventilator 01/27/20 16:00 40 01/27/20 15:10 77 01/27/20 15:05 63 14 40 01/27/20 14:26 77 20 146/77 99 01/27/20 13:56 60 20 152/69 92 01/27/20 13:00 152/69 01/27/20 12:00 Mechanical Ventilator Mechanical Ventilator 01/27/20 12:00 158/74 01/27/20 12:00 40 01/27/20 12:00 99.1 81 24 158/74 (102) 100 01/27/20 11:43 76 01/27/20 11:05 77 29 100 Mechanical Ventilator 40 79 17 40 01/27/20 09:04 145/65 01/27/20 09:04 73 145/65 01/27/20 09:04 73 145/65 01/27/20 08:55 40 01/27/20 08:02 75 01/27/20 08:00 Mechanical Ventilator Mechanical Ventilator 01/27/20 08:00 99.3 73 24 145/65 (91) 98 01/27/20 08:00 40 Height (Feet): 5 Height (Inches): 6.00 Weight (Pounds): 150 Gen: NAD HEENT: NCAT, +trach CV: RRR Pulm: CTAB on vent Abd: Non-distended, +PEG with skin intact but browish discharge on dressing Ext: No c/c/e Skin: No visible rashes Neuro: Awake, minimally interactive Lines: L fem HD cath Microbiology Date/Time Source Procedure Growth Status 01/26/20 15:20 Other(Specify in comment) Gram Stain - Final Resulted 01/26/20 15:20 Wound Culture - Preliminary Gram Negative Bacillus 1 Resulted Laboratory Tests Test 01/28/20 03:45 White Blood Count 8.3 K/UL (4.8-10.8) Red Blood Count 2.79 M/UL (4.20-5.40) L Hemoglobin 7.9 G/DL (12.0-16.0) L Hematocrit 23.5 % (37.0-47.0) L Mean Corpuscular Volume 84 FL (80-99) Mean Corpuscular Hemoglobin 28.5 PG (27.0-31.0) Mean Corpuscular Hemoglobin Concent 33.7 G/DL (32.0-36.0) Red Cell Distribution Width 14.8 % (11.6-14.8) Platelet Count 230 K/UL (150-450) Mean Platelet Volume 7.2 FL (6.5-10.1) Neutrophils (%) (Auto) % (45.0-75.0) Lymphocytes (%) (Auto) % (20.0-45.0) Monocytes (%) (Auto) % (1.0-10.0) Eosinophils (%) (Auto) % (0.0-3.0) Basophils (%) (Auto) % (0.0-2.0) Sodium Level 141 MMOL/L (136-145) Potassium Level 3.9 MMOL/L (3.5-5.1) Chloride Level 101 MMOL/L (98-107) Carbon Dioxide Level 27 MMOL/L (21-32) Anion Gap 13 mmol/L (5-15) Blood Urea Nitrogen 90 mg/dL (7-18) H Creatinine 3.4 MG/DL (0.55-1.30) H Estimat Glomerular Filtration Rate 14.5 mL/min (>60) Glucose Level 97 MG/DL (74-106) Calcium Level 7.9 MG/DL (8.5-10.1) L Total Bilirubin 0.4 MG/DL (0.2-1.0) Aspartate Amino Transf (AST/SGOT) 32 U/L (15-37) Alanine Aminotransferase (ALT/SGPT) 15 U/L (12-78) Alkaline Phosphatase 212 U/L (46-116) H Total Protein 6.9 G/DL (6.4-8.2) Albumin 2.1 G/DL (3.4-5.0) L Globulin 4.8 g/dL Albumin/Globulin Ratio 0.4 (1.0-2.7) L Amylase Level 278 U/L (25-115) H Lipase 1696 U/L (73-393) H Current Medications Medications (Trade) Dose Ordered Sig/Penny Route PRN Reason Start Time Stop Time Status Last Admin Dose Admin Acetaminophen (Tylenol) 500 mg Q6H PRN GT FEVER 01/21/20 20:45 02/20/20 20:44 01/24/20 17:13 Amlodipine Besylate (Norvasc) 5 mg BID GT 01/22/20 18:00 02/20/20 15:44 01/27/20 17:42 Aspirin (ASA) 81 mg DAILY GT 01/20/20 09:00 03/05/20 08:59 01/27/20 09:04 Atorvastatin Calcium (Lipitor) 10 mg BEDTIME GT 01/17/20 21:00 04/16/20 20:59 01/27/20 21:25 Chlorhexidine Gluconate (Lnig-Hex 2%) 1 applic DAILY@2000 TOPIC 01/17/20 20:00 04/16/20 19:59 01/27/20 21:24 Dextrose (Dextrose 50%) 25 ml Q30M PRN IV Hypoglycemia 01/15/20 22:15 04/14/20 22:14 Dextrose (Dextrose 50%) 50 ml Q30M PRN IV Hypoglycemia 01/15/20 22:15 04/14/20 22:14 01/22/20 17:54 Epoetin Gelacio (Epoetin Gelacio(ESRD on dialysis)) 10,000 unit MON-MON-MON SUBQ 01/27/20 21:00 04/26/20 20:59 01/27/20 21:24 Hydralazine HCl (Apresoline) 25 mg Q6HR GT 01/26/20 18:15 04/25/20 18:14 01/28/20 06:20 Isosorbide Dinitrate (Isordil) 20 mg TID GT 01/25/20 09:00 02/19/20 08:59 01/27/20 17:43 Lansoprazole (Prevacid) 30 mg BID GT 01/19/20 18:00 02/18/20 17:59 01/27/20 17:43 Lorazepam (Ativan 2mg/ml 1ml) 0.5 mg EVERY 8 HOURS IV 01/23/20 22:00 01/30/20 21:59 01/28/20 06:20 Meropenem 500 mg/ Sodium Chloride 55 ml @ 110 mls/hr Q12HR IVPB 01/27/20 09:00 02/01/20 08:59 01/27/20 21:25 Metoclopramide HCl (Reglan) 5 mg Q6H PRN IVP Nausea & Vomiting 01/15/20 22:15 02/14/20 22:14 Metoprolol Tartrate (Lopressor) 25 mg Q12HR ORAL 01/27/20 21:00 04/22/20 20:59 01/27/20 21:25 Tobramycin Sulfate (Nebcin) 300 mg Q12HRT INH 01/23/20 22:00 01/29/20 09:59 01/27/20 22:50 Zinc Oxide (Zinc Oxide) 1 applic TIDPRN PRN TOPIC diogenes GT 01/16/20 13:15 04/15/20 13:14 01/16/20 14:55 Ro Pack M.D. Jan 28, 2020 07:33
[2020-01-28 08:00] VITALS: BP 141/68
--- NOTE | 2020-01-28 08:27 | General Progress Note ---
Subjective ROS Limited/Unobtainable: No Allergies: Coded Allergies: No Known Allergies (Unverified , 10/10/17) Objective Last 24 Hour Vital Signs Date Time Temp Pulse Resp B/P (MAP) Pulse Ox O2 Delivery O2 Flow Rate FiO2 01/28/20 07:01 75 17 40 01/28/20 06:50 76 23 144/79 98 01/28/20 06:20 144/79 01/28/20 06:20 76 23 144/79 98 01/28/20 04:00 Mechanical Ventilator Mechanical Ventilator 01/28/20 04:00 98.3 79 23 144/79 (100) 98 01/28/20 04:00 76 01/28/20 04:00 40 01/28/20 03:15 72 18 Mechanical Ventilator 40 01/28/20 00:14 152/71 01/28/20 00:00 Mechanical Ventilator Mechanical Ventilator 01/28/20 00:00 99.1 79 23 126/71 (89) 98 01/28/20 00:00 75 01/28/20 00:00 40 01/27/20 22:50 81 20 99 Mechanical Ventilator 40 84 16 40 01/27/20 21:54 67 23 142/70 98 01/27/20 21:25 67 142/70 01/27/20 21:24 67 23 142/70 98 01/27/20 20:00 Mechanical Ventilator Mechanical Ventilator 01/27/20 20:00 98.1 67 23 142/70 (94) 98 01/27/20 20:00 40 01/27/20 20:00 74 01/27/20 19:12 71 18 40 01/27/20 17:43 147/81 01/27/20 17:42 147/81 01/27/20 17:42 75 147/81 01/27/20 16:00 98.6 75 23 147/81 (103) 98 01/27/20 16:00 Mechanical Ventilator Mechanical Ventilator 01/27/20 16:00 40 01/27/20 15:10 77 01/27/20 15:05 63 14 40 01/27/20 14:26 77 20 146/77 99 01/27/20 13:56 60 20 152/69 92 01/27/20 13:00 152/69 01/27/20 12:00 Mechanical Ventilator Mechanical Ventilator 01/27/20 12:00 158/74 01/27/20 12:00 40 01/27/20 12:00 99.1 81 24 158/74 (102) 100 01/27/20 11:43 76 01/27/20 11:05 77 29 100 Mechanical Ventilator 40 79 17 40 01/27/20 09:04 145/65 01/27/20 09:04 73 145/65 01/27/20 09:04 73 145/65 01/27/20 08:55 40 Intake and Output 01/27/20 01/28/20 19:00 07:00 Intake Total 315 ml 560 ml Output Total 3250 ml 200 ml Balance -2935 ml 360 ml Free Water 60 ml 120 ml IV Total 55 ml Tube Feeding 200 ml 440 ml Output Urine Total 250 ml 200 ml Hemodialysis UF 3000 ml Laboratory Tests 01/28/20 03:45: White Blood Count 8.3, Red Blood Count 2.79L, Hemoglobin 7.9L, Hematocrit 23.5L, Mean Corpuscular Volume 84, Mean Corpuscular Hemoglobin 28.5, Mean Corpuscular Hemoglobin Concent 33.7, Red Cell Distribution Width 14.8, Platelet Count 230, Mean Platelet Volume 7.2, Neutrophils (%) (Auto) , Lymphocytes (%) (Auto) , Monocytes (%) (Auto) , Eosinophils (%) (Auto) , Basophils (%) (Auto) , Sodium Level 141, Potassium Level 3.9, Chloride Level 101, Carbon Dioxide Level 27, Anion Gap 13, Blood Urea Nitrogen 90H, Creatinine 3.4H, Estimat Glomerular Filtration Rate 14.5, Glucose Level 97, Calcium Level 7.9L, Total Bilirubin 0.4, Aspartate Amino Transf (AST/SGOT) 32, Alanine Aminotransferase (ALT/SGPT) 15, Alkaline Phosphatase 212H, Total Protein 6.9, Albumin 2.1L, Globulin 4.8, Albumin/Globulin Ratio 0.4L, Amylase Level 278H, Lipase 1696H Height (Feet): 5 Height (Inches): 6.00 Weight (Pounds): 150 General Appearance: lethargic EENT: normal ENT inspection Neck: normal alignment Cardiovascular: normal rate Respiratory/Chest: decreased breath sounds Abdomen: normal bowel sounds, non tender, soft Extremities: non-tender Assessment/Plan Problem List: (1) Hx of CABG ICD Codes: Z95.1 - Presence of aortocoronary bypass graft SNOMED: 923107766, 804621946 (2) History of tracheostomy ICD Codes: Z98.890 - Other specified postprocedural states SNOMED: 102919915, 546403117 (3) PEG (percutaneous endoscopic gastrostomy) status ICD Codes: Z93.1 - Gastrostomy status SNOMED: 699322368, 010853870 (4) S/P aortic dissection repair ICD Codes: Z98.890 - Other specified postprocedural states SNOMED: 522505142, 684656023 (5) Renal failure ICD Codes: N19 - Unspecified kidney failure SNOMED: 17424313, 713822134 (6) Anemia ICD Codes: D64.9 - Anemia, unspecified SNOMED: 832869472 Assessment/Plan: stable H&H at around 7 GTF HD per nephrology persistent elevated lipase\ ct reviewed Inder Mccauley MD Jan 28, 2020 08:27
[2020-01-28] MEDS: Aspirin Baby 81mg GT SCH (09:00)
[2020-01-28] MEDS: Meropenem 500 MG in NS 55 ML IVPB SCH ×2 (09:24→20:59)
[2020-01-28] MEDS: Tobramycin for inhalation INH SCH ×2 (11:01→22:34)
--- NOTE | 2020-01-28 11:22 | Nephrology Progress Note ---
Assessment/Plan Problem List: (1) ARF (acute renal failure) (2) Pacemaker (3) Sepsis (4) Hyponatremia Assessment (1) JAVIER (acute kidney injury) (2) Renal failure (ARF), acute on chronic (3) Feeding by G-tube (4) Tracheostomy in place (5) Electrolyte imbalance, hyponatremia (6) Anemia, severe (7) Respiratory failure, acute and chronic (8) Elevated lipase, pancreatitis (9) Elevated troponin I (10) Sepsis Plan January 27: Patient was dialyzed yesterday . Labs were reviewed. Electrolytes within normal limit. Blood pressure stable. January 26: When visited the patient earlier today the patient was on dialysis. Tolerating well. Labs reviewed. Blood pressure stable. January 25: Dialysis for tomorrow. Labs reviewed. Hemoglobin remains low. Will adjust blood pressure medication. Hydralazine added to the regimen January 24: Last dialyzed January 22. Labs reviewed. Status quo. Will dialyze as needed. Low hemoglobin noted. Transfusion per PMD decision. Epogen started. \January 23: Dialyzed yesterday. Today's labs reviewed. Continue to monitor renal parameters and arrange for dialysis as needed. Continue per PMD. January 22: Seen earlier during dialysis. Labs reviewed. Medication list reviewed. Continue current management. January 21: Labs reviewed. Medication list reviewed. Next hemodialysis tomorrow. Blood pressure medication adjusted. January 20: Dialyzed yesterday. Labs reviewed. Continue per current management. Dialysis as needed. Add Norvasc to blood pressure regimen January 19: Due for dialysis today. Labs reviewed. Continue her current management. Continue to monitor renal parameters and electrolytes. January 18: Dialyzed yesterday. Labs reviewed. Renal parameters electrolytes much improved. Dialysis again tomorrow. Continue rest. January 17: Dialyzed this morning. Labs reviewed. Renal parameters and electrolyte abnormalities improved. Discussed with RN. Continue per consultants. January 16: Dialyzed yesterday. Labs improved. Next dialysis tomorrow. Continue per consultants. January 15: Patient to have dialysis catheter. Emergency dialysis for correction of uremia and electrolyte imbalances Antibiotics Transfusion Continue to monitor renal parameters Per orders Discussed with RN Subjective ROS Limited/Unobtainable: Yes Objective Objective Last 24 Hour Vital Signs Date Time Temp Pulse Resp B/P (MAP) Pulse Ox O2 Delivery O2 Flow Rate FiO2 01/28/20 09:25 74 141/68 01/28/20 09:25 141/68 01/28/20 09:25 74 141/68 01/28/20 08:01 74 01/28/20 08:00 Mechanical Ventilator Mechanical Ventilator 01/28/20 08:00 40 01/28/20 08:00 99.9 72 19 141/68 (92) 100 01/28/20 07:01 75 17 40 01/28/20 06:50 76 23 144/79 98 01/28/20 06:20 144/79 01/28/20 06:20 76 23 144/79 98 01/28/20 04:00 Mechanical Ventilator Mechanical Ventilator 01/28/20 04:00 98.3 79 23 144/79 (100) 98 01/28/20 04:00 76 01/28/20 04:00 40 01/28/20 03:15 72 18 Mechanical Ventilator 40 01/28/20 00:14 152/71 01/28/20 00:00 Mechanical Ventilator Mechanical Ventilator 01/28/20 00:00 99.1 79 23 126/71 (89) 98 01/28/20 00:00 75 01/28/20 00:00 40 01/27/20 22:50 81 20 99 Mechanical Ventilator 40 84 16 40 01/27/20 21:54 67 23 142/70 98 01/27/20 21:25 67 142/70 01/27/20 21:24 67 23 142/70 98 01/27/20 20:00 Mechanical Ventilator Mechanical Ventilator 01/27/20 20:00 98.1 67 23 142/70 (94) 98 01/27/20 20:00 40 01/27/20 20:00 74 01/27/20 19:12 71 18 40 01/27/20 17:43 147/81 01/27/20 17:42 147/81 01/27/20 17:42 75 147/81 01/27/20 16:00 98.6 75 23 147/81 (103) 98 01/27/20 16:00 Mechanical Ventilator Mechanical Ventilator 01/27/20 16:00 40 01/27/20 15:10 77 01/27/20 15:05 63 14 40 01/27/20 14:26 77 20 146/77 99 01/27/20 13:56 60 20 152/69 92 01/27/20 13:00 152/69 01/27/20 12:00 Mechanical Ventilator Mechanical Ventilator 01/27/20 12:00 158/74 01/27/20 12:00 40 01/27/20 12:00 99.1 81 24 158/74 (102) 100 01/27/20 11:43 76 Intake and Output 01/27/20 01/28/20 19:00 07:00 Intake Total 315 ml 560 ml Output Total 3250 ml 200 ml Balance -2935 ml 360 ml Free Water 60 ml 120 ml IV Total 55 ml Tube Feeding 200 ml 440 ml Output Urine Total 250 ml 200 ml Hemodialysis UF 3000 ml Laboratory Tests 01/28/20 03:45: White Blood Count 8.3, Red Blood Count 2.79L, Hemoglobin 7.9L, Hematocrit 23.5L, Mean Corpuscular Volume 84, Mean Corpuscular Hemoglobin 28.5, Mean Corpuscular Hemoglobin Concent 33.7, Red Cell Distribution Width 14.8, Platelet Count 230, Mean Platelet Volume 7.2, Neutrophils (%) (Auto) , Lymphocytes (%) (Auto) , Monocytes (%) (Auto) , Eosinophils (%) (Auto) , Basophils (%) (Auto) , Sodium Level 141, Potassium Level 3.9, Chloride Level 101, Carbon Dioxide Level 27, Anion Gap 13, Blood Urea Nitrogen 90H, Creatinine 3.4H, Estimat Glomerular Filtration Rate 14.5, Glucose Level 97, Calcium Level 7.9L, Total Bilirubin 0.4, Aspartate Amino Transf (AST/SGOT) 32, Alanine Aminotransferase (ALT/SGPT) 15, Alkaline Phosphatase 212H, Total Protein 6.9, Albumin 2.1L, Globulin 4.8, Albumin/Globulin Ratio 0.4L, Amylase Level 278H, Lipase 1696H Height (Feet): 5 Height (Inches): 6.00 Weight (Pounds): 150 General Appearance: no apparent distress EENT: other - Trach to vent Cardiovascular: normal rate Respiratory/Chest: decreased breath sounds Abdomen: distended Johnny Houston MD Jan 28, 2020 11:22
[2020-01-28 12:00] VITALS: BP 142/77
--- NOTE | 2020-01-28 13:15 | NUR ---
RD ASSESSMENT & RECOMMENDATIONS SEE CARE ACTIVITY FOR COMPLETE ASSESSMENT DAILY ESTIMATED NEEDS: Needs based on Critical care, wound, renal dysfunction 56 kg abw 28-33 kcals/kg 8154-5773 total kcals W/ HD (1.5-2.0) g protein/kg 84-112 g total protein Fluid per MD mL/kg . total fluid mLs NUTRITION DIAGNOSIS: * Swallowing difficulty R/T dysphagia, respiratory status as evidenced by vent dep via trach, GT Dep. * Increase kcal and pro needs r/t wound healing, renal dysfunction as evidenced by admitted w/ stage 4 sacral wound, admitted w/ JAVIER, now on HD. CURRENT TF: Nepro @ 40ml/hr ENTERAL NUTRITION RECOMMENDATIONS: Nepro @ 40ml/hr x 24 hrs + Prosource 1pkt QD to provide 960ml, 1728kcal, 78g+11g prot, 698ml free water * Maintain current TF @ goal as tolerated * Add Prosource 1pkt QD to better meet increased protein needs (additional 11g prot) * Water flush per MD/ HOB over 30 degrees ADDITIONAL RECOMMENDATIONS: * Per SNF in NOV 2019: HT=63"/ Rec daily calibrated bedscale wt * Monitor for continuity of HD: last HD 01/26 * Check f/up phos (elev on 01/25), monitor need for phos binders * Wound care: add Nephrovite x 1, ZnSO4 220mg QD x 10 days Reynaldo BID via PEG (mix w/ 2-4 oz water); vit C per nephro * Monitor TF tolerance: elev lipase, slowly trending down .
--- NOTE | 2020-01-28 13:33 | Surgery Progress Note ---
Surgery Progress Note Subjective Procedure Performed Left femoral temporary hemodialysis catheter insertion Additional Comments labs noted comfortable no n/v slowly improving Objective Last 24 Hour Vital Signs Date Time Temp Pulse Resp B/P (MAP) Pulse Ox O2 Delivery O2 Flow Rate FiO2 01/28/20 12:16 137/59 01/28/20 12:00 59 01/28/20 11:40 142/77 01/28/20 11:39 74 142/77 01/28/20 09:25 74 141/68 01/28/20 09:25 141/68 01/28/20 08:01 74 01/28/20 08:00 Mechanical Ventilator Mechanical Ventilator 01/28/20 08:00 40 01/28/20 08:00 99.9 72 19 141/68 (92) 100 01/28/20 07:01 75 17 40 01/28/20 06:50 76 23 144/79 98 01/28/20 06:20 144/79 01/28/20 06:20 76 23 144/79 98 01/28/20 04:00 Mechanical Ventilator Mechanical Ventilator 01/28/20 04:00 98.3 79 23 144/79 (100) 98 01/28/20 04:00 76 01/28/20 04:00 40 01/28/20 03:15 72 18 Mechanical Ventilator 40 01/28/20 00:14 152/71 01/28/20 00:00 Mechanical Ventilator Mechanical Ventilator 01/28/20 00:00 99.1 79 23 126/71 (89) 98 01/28/20 00:00 75 01/28/20 00:00 40 01/27/20 22:50 81 20 99 Mechanical Ventilator 40 84 16 40 01/27/20 21:54 67 23 142/70 98 01/27/20 21:25 67 142/70 01/27/20 21:24 67 23 142/70 98 01/27/20 20:00 Mechanical Ventilator Mechanical Ventilator 01/27/20 20:00 98.1 67 23 142/70 (94) 98 01/27/20 20:00 40 01/27/20 20:00 74 01/27/20 19:12 71 18 40 01/27/20 17:43 147/81 01/27/20 17:42 147/81 01/27/20 17:42 75 147/81 01/27/20 16:00 98.6 75 23 147/81 (103) 98 01/27/20 16:00 Mechanical Ventilator Mechanical Ventilator 01/27/20 16:00 40 01/27/20 15:10 77 01/27/20 15:05 63 14 40 01/27/20 14:26 77 20 146/77 99 01/27/20 13:56 60 20 152/69 92 I&O Intake and Output 01/27/20 01/28/20 19:00 07:00 Intake Total 315 ml 560 ml Output Total 3250 ml 200 ml Balance -2935 ml 360 ml Free Water 60 ml 120 ml IV Total 55 ml Tube Feeding 200 ml 440 ml Output Urine Total 250 ml 200 ml Hemodialysis UF 3000 ml Dressing: saturated Cardiovascular: RSR Respiratory: decreased breath sounds Abdomen: non-tender, present bowel sounds Extremities: no tenderness, no cyanosis Laboratory Tests Test 01/28/20 03:45 White Blood Count 8.3 K/UL (4.8-10.8) Red Blood Count 2.79 M/UL (4.20-5.40) L Hemoglobin 7.9 G/DL (12.0-16.0) L Hematocrit 23.5 % (37.0-47.0) L Mean Corpuscular Volume 84 FL (80-99) Mean Corpuscular Hemoglobin 28.5 PG (27.0-31.0) Mean Corpuscular Hemoglobin Concent 33.7 G/DL (32.0-36.0) Red Cell Distribution Width 14.8 % (11.6-14.8) Platelet Count 230 K/UL (150-450) Mean Platelet Volume 7.2 FL (6.5-10.1) Neutrophils (%) (Auto) % (45.0-75.0) Lymphocytes (%) (Auto) % (20.0-45.0) Monocytes (%) (Auto) % (1.0-10.0) Eosinophils (%) (Auto) % (0.0-3.0) Basophils (%) (Auto) % (0.0-2.0) Sodium Level 141 MMOL/L (136-145) Potassium Level 3.9 MMOL/L (3.5-5.1) Chloride Level 101 MMOL/L (98-107) Carbon Dioxide Level 27 MMOL/L (21-32) Anion Gap 13 mmol/L (5-15) Blood Urea Nitrogen 90 mg/dL (7-18) H Creatinine 3.4 MG/DL (0.55-1.30) H Estimat Glomerular Filtration Rate 14.5 mL/min (>60) Glucose Level 97 MG/DL (74-106) Calcium Level 7.9 MG/DL (8.5-10.1) L Total Bilirubin 0.4 MG/DL (0.2-1.0) Aspartate Amino Transf (AST/SGOT) 32 U/L (15-37) Alanine Aminotransferase (ALT/SGPT) 15 U/L (12-78) Alkaline Phosphatase 212 U/L (46-116) H Total Protein 6.9 G/DL (6.4-8.2) Albumin 2.1 G/DL (3.4-5.0) L Globulin 4.8 g/dL Albumin/Globulin Ratio 0.4 (1.0-2.7) L Amylase Level 278 U/L (25-115) H Lipase 1696 U/L (73-393) H Plan Problems: (1) Dehydration (2) Acidosis (3) Depression (4) Pleural effusion (5) Respiratory failure (6) Schizophrenia (7) Hypoxia (8) UTI (urinary tract infection) (9) Pneumonia (10) NSTEMI (non-ST elevated myocardial infarction) (11) Tracheostomy in place (12) Feeding by G-tube (13) JAVIER (acute kidney injury) (14) Acute encephalopathy (15) Sacral decubitus ulcer, stage IV (16) Chronic respiratory failure (17) Ascites (18) Bacteremia (19) Hypernatremia (20) Proteinuria (21) Electrolyte imbalance (22) ACS (acute coronary syndrome) (23) Aortic dissection, thoracic (24) Respiratory failure, acute and chronic (25) JAVIER (acute kidney injury) (26) Abrasion of lip, initial encounter (27) COPD with exacerbation (28) Elevated alkaline phosphatase level (29) Renal failure (ARF), acute on chronic (30) HCAP (healthcare-associated pneumonia) (31) GT CLOGGED (32) Elevated lipase (33) Pancreatitis (34) Elevated troponin (35) Hypokalemia (36) Hyponatremia (37) Anemia (38) Renal failure (39) ARF (acute renal failure) (40) Pacemaker (41) Sepsis Assessment & Plan: leukocytosis anemia on HD renal insufficiency wounds addressed pancreatitis cont diet as tolerating trend labs lf'ts okay pt presented on admission with Tracheostomy ,GT and Multiple Pressure Injuries. Skin assessment of skin under tracheal collar without evidence of skin breakdown. Peristomal GT site excoriated.Moderate amt of dark red sanguineous exudate. Full Thickness Sacral Pressure Injury with undermined borders (L)9 cm x (W)12cm x (D)1.8cm,Undermining clockwise8-9 by 2.2cm @1o'clock,undermining clockwise 1-4 by 1.9 @ 9'oclock Scattered necrotic tissue within wound bed. Borders are loose and necrotic with marginal erythema to outer perimeter of wound. NO elevation in skin temp noted periwound. Wound is malodorous. Small amt Brown exudate noted. Resolving Pressure Injury L Ischium(L)1.5cm x (W)1.5cm. Base of wound is 80% pink epithelial with an area that is moist and pink. NO odor or exudate noted. Bilat foot-drop noted. L Heel is boggy with non-blanchable erythema(L)4cm x (W)4cm. R heel is boggy with non-Blanchable erythema(L)5cm x (W)6cm. Tx.Plan: Cleanse sacral wound with Dakin's 0.125% annie. Loosely pack with Dakin's moistened Kerlix(Attention to undermined borders). Apply Moisture Barrier Paste periwound. Cover with Optifoam drsg. Change Daily and PRN. Apply Cavilon Skin Barrier to R and L Hels. Cover each heel with Optifoam drsg. Change every 7 days and prn. Reposition at least every 2hours or as tolerated. Off-load heels with Pillow. APM/JENNIFER MAttress overlay DAILY ESTIMATED NEEDS: Needs based on Critical care, wound, renal dysfunction 56 kg abw 28-33 kcals/kg 4223-2947 total kcals W/ HD (1.5-2.0) g protein/kg 84-112 g total protein Fluid per MD mL/kg . total fluid mLs NUTRITION DIAGNOSIS: * Swallowing difficulty R/T dysphagia, respiratory status as evidenced by vent dep via trach, GT Dep. * Increase kcal and pro needs r/t wound healing, renal dysfunction as evidenced by admitted w/ large, advanced sacral wound, previously stage 4, pending eval, admitted w/ JAVIER, pending HD. CURRENT TF:NPO ENTERAL NUTRITION RECOMMENDATIONS: Nepro @ 40ml/hr x 24 hrs + Prosource 1pkt QD to provide 960ml, 1728kcal, 78g+11g prot, 698ml free water * As medically appropriate, initiate TF on Nepro, rec goal rate fo 40ml/hr x 24 hrs * Add Prosource 1pkt QD to better meet increased protein needs (additional 11g prot) * Water flush per MD/ HOB over 30 degrees ADDITIONAL RECOMMENDATIONS: * Per SNF in NOV 2019: HT=63"/ Rec daily calibrated bedscale wt * Monitor for continuity of HD: non-tunneled cath placement ordered * Monitor lytes and renal fxn for improvement (Na low, K and phos elevated) * Wound care: add Nephrovite x 1, ZnSO4 220mg QD x 10 days Reynaldo BID via PEG (mix w/ 2-4 oz water) * Monitor BG closely for hypoglycemia while NPO (h/o DM, on Nacl 3% to correct hyponatremia, consider accuchecks) (42) Hyponatremia Lane Saavedra Jan 28, 2020 13:33
--- NOTE | 2020-01-28 13:49 | Pulmonology Progress Note ---
Subjective ROS Limited/Unobtainable: Yes Interval Events: s/p HD Constitutional: Reports: no symptoms HEENT: Repors: no symptoms Respiratory: Reports: no symptoms Cardiovascular: Reports: no symptoms Gastrointestinal/Abdominal: Reports: no symptoms Allergies: Coded Allergies: No Known Allergies (Unverified , 10/10/17) All Systems: reviewed and negative except above Objective Last 24 Hour Vital Signs Date Time Temp Pulse Resp B/P (MAP) Pulse Ox O2 Delivery O2 Flow Rate FiO2 01/28/20 13:38 70 20 139/66 95 01/28/20 12:16 137/59 01/28/20 12:00 59 01/28/20 11:40 142/77 01/28/20 11:39 74 142/77 01/28/20 09:25 74 141/68 01/28/20 09:25 141/68 01/28/20 08:01 74 01/28/20 08:00 Mechanical Ventilator Mechanical Ventilator 01/28/20 08:00 40 01/28/20 08:00 99.9 72 19 141/68 (92) 100 01/28/20 07:01 75 17 40 01/28/20 06:50 76 23 144/79 98 01/28/20 06:20 144/79 01/28/20 06:20 76 23 144/79 98 01/28/20 04:00 Mechanical Ventilator Mechanical Ventilator 01/28/20 04:00 98.3 79 23 144/79 (100) 98 01/28/20 04:00 76 01/28/20 04:00 40 01/28/20 03:15 72 18 Mechanical Ventilator 40 01/28/20 00:14 152/71 01/28/20 00:00 Mechanical Ventilator Mechanical Ventilator 01/28/20 00:00 99.1 79 23 126/71 (89) 98 01/28/20 00:00 75 01/28/20 00:00 40 01/27/20 22:50 81 20 99 Mechanical Ventilator 40 84 16 40 01/27/20 21:54 67 23 142/70 98 01/27/20 21:25 67 142/70 01/27/20 21:24 67 23 142/70 98 01/27/20 20:00 Mechanical Ventilator Mechanical Ventilator 01/27/20 20:00 98.1 67 23 142/70 (94) 98 01/27/20 20:00 40 01/27/20 20:00 74 01/27/20 19:12 71 18 40 01/27/20 17:43 147/81 01/27/20 17:42 147/81 01/27/20 17:42 75 147/81 01/27/20 16:00 98.6 75 23 147/81 (103) 98 01/27/20 16:00 Mechanical Ventilator Mechanical Ventilator 01/27/20 16:00 40 01/27/20 15:10 77 01/27/20 15:05 63 14 40 01/27/20 14:26 77 20 146/77 99 01/27/20 13:56 60 20 152/69 92 Intake and Output 01/27/20 01/28/20 19:00 07:00 Intake Total 315 ml 560 ml Output Total 3250 ml 200 ml Balance -2935 ml 360 ml Free Water 60 ml 120 ml IV Total 55 ml Tube Feeding 200 ml 440 ml Output Urine Total 250 ml 200 ml Hemodialysis UF 3000 ml Objective 01/28/2020 trach no leakage, saturating at 99% on vent 01/27/2020 trach site clean, no leakage; saturating 99% on vent 01/21/2020 trach site clean, no leakage noted; currently saturating 98% with AC 14, TV 500 FiO2 50%, PEEP 5. 01/20/2020 tracheostomy site clean, vent dependent patient, no leakage noted General Appearance: no acute distress HEENT: normocephalic, other - trach Respiratory: chest wall non-tender, other - coarse lung sounds Cardiovascular: normal rate, regular rhythm Abdomen: soft, non tender Genitourinary: other - Norman Extremities: other - trace edema Microbiology Date/Time Source Procedure Growth Status 01/26/20 15:20 Other(Specify in comment) Gram Stain - Final Resulted 01/26/20 15:20 Wound Culture - Preliminary Klebsiella Pneumoniae Gram Negative Bacillus 2 Resulted Laboratory Tests 01/28/20 03:45: White Blood Count 8.3, Red Blood Count 2.79L, Hemoglobin 7.9L, Hematocrit 23.5L, Mean Corpuscular Volume 84, Mean Corpuscular Hemoglobin 28.5, Mean Corpuscular Hemoglobin Concent 33.7, Red Cell Distribution Width 14.8, Platelet Count 230, Mean Platelet Volume 7.2, Neutrophils (%) (Auto) , Lymphocytes (%) (Auto) , Monocytes (%) (Auto) , Eosinophils (%) (Auto) , Basophils (%) (Auto) , Sodium Level 141, Potassium Level 3.9, Chloride Level 101, Carbon Dioxide Level 27, Anion Gap 13, Blood Urea Nitrogen 90H, Creatinine 3.4H, Estimat Glomerular Filtration Rate 14.5, Glucose Level 97, Calcium Level 7.9L, Total Bilirubin 0.4, Aspartate Amino Transf (AST/SGOT) 32, Alanine Aminotransferase (ALT/SGPT) 15, Alkaline Phosphatase 212H, Total Protein 6.9, Albumin 2.1L, Globulin 4.8, Albumin/Globulin Ratio 0.4L, Amylase Level 278H, Lipase 1696H Current Medications Medications (Trade) Dose Ordered Sig/Penny Route PRN Reason Start Time Stop Time Status Last Admin Dose Admin Acetaminophen (Tylenol) 500 mg Q6H PRN GT FEVER 01/21/20 20:45 02/20/20 20:44 01/24/20 17:13 Amlodipine Besylate (Norvasc) 5 mg BID GT 01/22/20 18:00 02/20/20 15:44 01/28/20 11:39 Aspirin (ASA) 81 mg DAILY GT 01/20/20 09:00 03/05/20 08:59 01/27/20 09:04 Atorvastatin Calcium (Lipitor) 10 mg BEDTIME GT 01/17/20 21:00 04/16/20 20:59 01/27/20 21:25 Chlorhexidine Gluconate (Ling-Hex 2%) 1 applic DAILY@1999 TOPIC 01/17/20 20:00 04/16/20 19:59 01/27/20 21:24 Dextrose (Dextrose 50%) 25 ml Q30M PRN IV Hypoglycemia 01/15/20 22:15 04/14/20 22:14 Dextrose (Dextrose 50%) 50 ml Q30M PRN IV Hypoglycemia 01/15/20 22:15 04/14/20 22:14 01/22/20 17:54 Epoetin Gelacio (Epoetin Gelacio(ESRD on dialysis)) 10,000 unit MON-MON-MON SUBQ 01/27/20 21:00 04/26/20 20:59 01/27/20 21:24 Hydralazine HCl (Apresoline) 25 mg Q6HR GT 01/26/20 18:15 04/25/20 18:14 01/28/20 11:40 Isosorbide Dinitrate (Isordil) 20 mg TID GT 01/25/20 09:00 02/19/20 08:59 01/28/20 12:16 Lansoprazole (Prevacid) 30 mg BID GT 01/19/20 18:00 02/18/20 17:59 01/28/20 09:25 Lorazepam (Ativan 2mg/ml 1ml) 0.5 mg EVERY 8 HOURS IV 01/23/20 22:00 01/30/20 21:59 01/28/20 13:38 Meropenem 500 mg/ Sodium Chloride 55 ml @ 110 mls/hr Q12HR IVPB 01/27/20 09:00 02/01/20 08:59 01/28/20 09:24 Metoclopramide HCl (Reglan) 5 mg Q6H PRN IVP Nausea & Vomiting 01/15/20 22:15 02/14/20 22:14 Metoprolol Tartrate (Lopressor) 25 mg Q12HR ORAL 01/27/20 21:00 04/22/20 20:59 01/28/20 09:25 Tobramycin Sulfate (Nebcin) 300 mg Q12HRT INH 01/23/20 22:00 01/31/20 23:59 01/28/20 11:01 Zinc Oxide (Zinc Oxide) 1 applic TIDPRN PRN TOPIC diogenes GT 01/16/20 13:15 04/15/20 13:14 01/16/20 14:55 Assessment/Plan Assessment/Plan 1. Large left effusion. - S/p thoracentesis; CXR better - pleural fluid pathology report: negative for malignant cell 2. Chronic respiratory failure. - on trach - Cont AC mode - Currently saturating at 99% 3. Sepsis; improving 4. Anemia - improving - s/p transfusion - s/p Epogen s/p HD on broad-spectrum antibiotics. Pulmonary hygiene. DVT and GI prophylaxes. We will follow carefully. The care for this patient was discussed with my supervising physician TIme spent for this case was approximately 31 minutes The patient was seen and examined at bedside and all new and available data was reviewed in the patients chart. I agree with the above findings, impression, and plan. (Patient was seen earlier today. Signature timestamp does not reflect patient encounter time) Cruz Álvarez MD Jan 28, 2020 13:49 Elijah Stephen MD Jan 28, 2020 18:13
--- NOTE | 2020-01-28 15:51 | NUR ---
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 98.1 HR 59 RR 19 B/P 142/77 AC 14 TV 500 FIO2 40% PEEP 5 BUN 90 CR 3.4 IS: MEROPENEM IV PREVACID HD STEP DOWN STATUS
--- NOTE | 2020-01-28 15:53 | NUR ---
[employer] INS[employer] NOTES CLINICALS REVIEWED AND FAXED.
[2020-01-28 16:00] VITALS: BP 125/60
--- NOTE | 2020-01-28 18:53 | NUR ---
RESPIRATORY NOTE: Received pt on AC VC 14, 500VT, 40%, PEEP +5. Pt is trach-dependent w/ a cuffed, Shiley 7 XLT tube. Pt asleep/disoriented. B/S sara. rhonchi, sxn small to moderate amounts of thick, pale-yellow secretions. Vent plugged into red outlet, ambubag at bedside. Pt in no apparent distress at this time. Will continue plan of care.
--- NOTE | 2020-01-28 19:15 | NUR ---
NURSE NOTES: Received patient from [facility] Sen under the care of Dr. Dong, for the admitting dx. of JAVIER, sepsis, and respiratory failure. Noted NKA and full code status. Patient on contact isolation. Fall and aspiration precautions observed and maintained at all times. Patient is alert to self and responsive to touch stimuli. Tolerating vent settings well. No acute distress noted. 0/10 FLACC score noted at this time. Will continue to monitor.
--- NOTE | 2020-01-28 19:30 | NUR ---
NURSE HAND-OFF REPORT: Important Events on Shift: Patient Status: Stable Diet: Nepro 40 ml/hr Pending Orders: None Pending Results/Labs:None Pending MD notification:None Latest Vital Signs: Temperature 98.1 , Pulse 65 , B/P 125 /60 , Respiratory Rate 19 , O2 SAT 100 , Mechanical Ventilator, O2 Flow Rate . Vital Sign Comment: Stable EKG Rhythm: Sinus Rhythm Rhythm change?: N MD Notified?: Gabriel Willams MD Response: Order Received& Read Back Latest Chavarria Fall Score: 70 Fall Risk: High Risk Safety Measures: Call light Within Reach, Bed Alarm Zone 1, Side Rails Side Rails x3, Bed position Low and Locked. Fall Precautions: Yellow Socks Report given to ERASMO Moseley.
[2020-01-28 20:00] VITALS: BP 127/65
[2020-01-28] MEDS: Dyna-Hex 2% Top Sol 2oz TOPIC SCH (20:58)
--- NOTE | 2020-01-28 21:30 | NUR ---
NURSE NOTES: Seen and examined by Dr. Dong. Asked MD regarding glucose checks without coverage, and Dr. Dong said that the glucose check is for liver functionality rather than for DM. Will continue with patient glucose checks.
[2020-01-28] MEDS ORDERED: NS 275ml ONE (22:20)
[2020-01-28] MEDS ORDERED: Tubing IV Secondary IV ONE (22:20)
[2020-01-28] MEDS ORDERED: Tubing Blood Filter IV ONE (22:20)
--- NOTE | 2020-01-28 22:31 | General Progress Note ---
Subjective Constitutional: Reports: no symptoms HEENT: Reports: no symptoms Cardiovascular: Reports: no symptoms Respiratory: Reports: no symptoms Gastrointestinal/Abdominal: Reports: no symptoms Genitourinary: Reports: no symptoms Neurologic/Psychiatric: Reports: tremors, other - Her tremor nearly resolved Endocrine: Reports: no symptoms Hematologic/Lymphatic: Reports: no symptoms Allergies: Coded Allergies: No Known Allergies (Unverified , 10/10/17) Objective Last 24 Hour Vital Signs Date Time Temp Pulse Resp B/P (MAP) Pulse Ox O2 Delivery O2 Flow Rate FiO2 01/28/20 20:59 65 125/60 01/28/20 20:00 98.2 62 19 127/65 (85) 100 01/28/20 20:00 Mechanical Ventilator Mechanical Ventilator 01/28/20 20:00 40 01/28/20 18:50 65 19 40 01/28/20 18:25 125/60 01/28/20 17:02 125/60 01/28/20 17:02 62 125/60 01/28/20 16:00 63 01/28/20 16:00 98.1 65 19 125/60 (81) 100 01/28/20 15:57 40 01/28/20 15:56 Mechanical Ventilator Mechanical Ventilator 01/28/20 15:36 67 19 40 01/28/20 14:08 63 20 133/67 95 01/28/20 13:38 70 20 139/66 95 01/28/20 12:16 137/59 01/28/20 12:00 40 01/28/20 12:00 Mechanical Ventilator Mechanical Ventilator 01/28/20 12:00 98.1 61 19 142/77 (98) 100 01/28/20 12:00 59 01/28/20 11:40 142/77 01/28/20 11:39 74 142/77 01/28/20 11:34 62 18 100 Mechanical Ventilator 40 66 18 40 01/28/20 09:25 74 141/68 01/28/20 09:25 141/68 01/28/20 08:01 74 01/28/20 08:00 Mechanical Ventilator Mechanical Ventilator 01/28/20 08:00 40 01/28/20 08:00 99.9 72 19 141/68 (92) 100 01/28/20 07:01 75 17 40 01/28/20 06:50 76 23 144/79 98 01/28/20 06:20 144/79 01/28/20 06:20 76 23 144/79 98 01/28/20 04:00 Mechanical Ventilator Mechanical Ventilator 01/28/20 04:00 98.3 79 23 144/79 (100) 98 01/28/20 04:00 76 01/28/20 04:00 40 01/28/20 03:15 72 18 Mechanical Ventilator 40 01/28/20 00:14 152/71 01/28/20 00:00 Mechanical Ventilator Mechanical Ventilator 01/28/20 00:00 99.1 79 23 126/71 (89) 98 01/28/20 00:00 75 01/28/20 00:00 40 01/27/20 22:50 81 20 99 Mechanical Ventilator 40 84 16 40 Intake and Output 01/27/20 01/28/20 19:00 07:00 Intake Total 315 ml 600 ml Output Total 3250 ml 200 ml Balance -2935 ml 400 ml Free Water 60 ml 120 ml IV Total 55 ml Tube Feeding 200 ml 480 ml Output Urine Total 250 ml 200 ml Hemodialysis UF 3000 ml Laboratory Tests 01/28/20 03:45: White Blood Count 8.3, Red Blood Count 2.79L, Hemoglobin 7.9L, Hematocrit 23.5L, Mean Corpuscular Volume 84, Mean Corpuscular Hemoglobin 28.5, Mean Corpuscular Hemoglobin Concent 33.7, Red Cell Distribution Width 14.8, Platelet Count 230, Mean Platelet Volume 7.2, Neutrophils (%) (Auto) , Lymphocytes (%) (Auto) , Monocytes (%) (Auto) , Eosinophils (%) (Auto) , Basophils (%) (Auto) , Sodium Level 141, Potassium Level 3.9, Chloride Level 101, Carbon Dioxide Level 27, Anion Gap 13, Blood Urea Nitrogen 90H, Creatinine 3.4H, Estimat Glomerular Filtration Rate 14.5, Glucose Level 97, Calcium Level 7.9L, Total Bilirubin 0.4, Aspartate Amino Transf (AST/SGOT) 32, Alanine Aminotransferase (ALT/SGPT) 15, Alkaline Phosphatase 212H, Total Protein 6.9, Albumin 2.1L, Globulin 4.8, Albumin/Globulin Ratio 0.4L, Amylase Level 278H, Lipase 1696H Height (Feet): 5 Height (Inches): 6.00 Weight (Pounds): 150 General Appearance: WD/WN, no apparent distress, alert, other - Eye contact smiles EENT: normal ENT inspection Neck: normal alignment, supple Cardiovascular: normal rate, regular rhythm, no gallop/murmur, no JVD Respiratory/Chest: lungs clear, normal breath sounds, no respiratory distress, no accessory muscle use Abdomen: normal bowel sounds, non tender, soft, no organomegaly, no mass Extremities: non-tender Neurologic: responsive, other - No verbal response except eye contact and facial expression Assessment/Plan Status Narrative Patient is awake alert afebrile hemodynamically stable she has been on tobramycin meropenem now for several days but is excellent infectious disease results no leukocytosis no tachycardia mental status markedly improved in effect and search for placement for her has been initiated [facility] laboratory tests will be done in a.. Lucas Canales MD, MD Jan 28, 2020 22:31
[2020-01-28] MEDS ORDERED: 1/2 NS 1000ml IV ONE (22:39)
--- NOTE | 2020-01-28 23:12 | Cardiology Progress Note ---
Subjective DATE OF SERVICE: Jan 28, 2020 Remains in atrial fibrillation; rates controlled. Occasional PVC's - non- sustained BP range stable Full vent support via trach s/p left thorocentesis 01/22/20 Low hemoglobin; on epogen Objective Last 24 Hour Vital Signs Date Time Temp Pulse Resp B/P (MAP) Pulse Ox O2 Delivery O2 Flow Rate FiO2 01/28/20 22:55 66 18 125/60 100 01/28/20 22:38 66 18 100 Mechanical Ventilator 40 65 16 40 01/28/20 20:59 65 125/60 01/28/20 20:00 98.2 62 19 127/65 (85) 100 01/28/20 20:00 63 01/28/20 20:00 Mechanical Ventilator Mechanical Ventilator 01/28/20 20:00 40 01/28/20 18:50 65 19 40 01/28/20 18:25 125/60 01/28/20 17:02 125/60 01/28/20 17:02 62 125/60 01/28/20 16:00 63 01/28/20 16:00 98.1 65 19 125/60 (81) 100 01/28/20 15:57 40 01/28/20 15:56 Mechanical Ventilator Mechanical Ventilator 01/28/20 15:36 67 19 40 01/28/20 14:08 63 20 133/67 95 01/28/20 13:38 70 20 139/66 95 01/28/20 12:16 137/59 01/28/20 12:00 40 01/28/20 12:00 Mechanical Ventilator Mechanical Ventilator 01/28/20 12:00 98.1 61 19 142/77 (98) 100 01/28/20 12:00 59 01/28/20 11:40 142/77 01/28/20 11:39 74 142/77 01/28/20 11:34 62 18 100 Mechanical Ventilator 40 66 18 40 01/28/20 09:25 74 141/68 01/28/20 09:25 141/68 01/28/20 08:01 74 01/28/20 08:00 Mechanical Ventilator Mechanical Ventilator 01/28/20 08:00 40 01/28/20 08:00 99.9 72 19 141/68 (92) 100 01/28/20 07:01 75 17 40 01/28/20 06:50 76 23 144/79 98 01/28/20 06:20 144/79 01/28/20 06:20 76 23 144/79 98 01/28/20 04:00 Mechanical Ventilator Mechanical Ventilator 01/28/20 04:00 98.3 79 23 144/79 (100) 98 01/28/20 04:00 76 01/28/20 04:00 40 01/28/20 03:15 72 18 Mechanical Ventilator 40 01/28/20 00:14 152/71 01/28/20 00:00 Mechanical Ventilator Mechanical Ventilator 01/28/20 00:00 99.1 79 23 126/71 (89) 98 01/28/20 00:00 75 01/28/20 00:00 40 ROS: unchanged for 01/17/20 HEENT: Mechanically Ventilated, Thick Trach secretions RHYTHM: Afib LUNGS: bilateral rhonchi, trach site clean CARDIAC: normal S1 and S2, irregularly irregular ABDOMEN: normal bowel sounds, non tender, soft, G-Tube intact EXTREMITIES: normal inspection, trace edema Laboratory Tests Test 01/28/20 03:45 White Blood Count 8.3 K/UL (4.8-10.8) Red Blood Count 2.79 M/UL (4.20-5.40) L Hemoglobin 7.9 G/DL (12.0-16.0) L Hematocrit 23.5 % (37.0-47.0) L Mean Corpuscular Volume 84 FL (80-99) Mean Corpuscular Hemoglobin 28.5 PG (27.0-31.0) Mean Corpuscular Hemoglobin Concent 33.7 G/DL (32.0-36.0) Red Cell Distribution Width 14.8 % (11.6-14.8) Platelet Count 230 K/UL (150-450) Mean Platelet Volume 7.2 FL (6.5-10.1) Neutrophils (%) (Auto) % (45.0-75.0) Lymphocytes (%) (Auto) % (20.0-45.0) Monocytes (%) (Auto) % (1.0-10.0) Eosinophils (%) (Auto) % (0.0-3.0) Basophils (%) (Auto) % (0.0-2.0) Sodium Level 141 MMOL/L (136-145) Potassium Level 3.9 MMOL/L (3.5-5.1) Chloride Level 101 MMOL/L (98-107) Carbon Dioxide Level 27 MMOL/L (21-32) Anion Gap 13 mmol/L (5-15) Blood Urea Nitrogen 90 mg/dL (7-18) H Creatinine 3.4 MG/DL (0.55-1.30) H Estimat Glomerular Filtration Rate 14.5 mL/min (>60) Glucose Level 97 MG/DL (74-106) Calcium Level 7.9 MG/DL (8.5-10.1) L Total Bilirubin 0.4 MG/DL (0.2-1.0) Aspartate Amino Transf (AST/SGOT) 32 U/L (15-37) Alanine Aminotransferase (ALT/SGPT) 15 U/L (12-78) Alkaline Phosphatase 212 U/L (46-116) H Total Protein 6.9 G/DL (6.4-8.2) Albumin 2.1 G/DL (3.4-5.0) L Globulin 4.8 g/dL Albumin/Globulin Ratio 0.4 (1.0-2.7) L Amylase Level 278 U/L (25-115) H Lipase 1696 U/L (73-393) H Microbiology Date/Time Source Procedure Growth Status 01/26/20 15:20 Other(Specify in comment) Gram Stain - Final Resulted 01/26/20 15:20 Wound Culture - Preliminary Klebsiella Pneumoniae Gram Negative Bacillus 2 Resulted Assessment/Plan Assessment/Plan Chronic respiratory failure with trach Severe sepsis PAFib with rapid ventric response. Ischemic cardiomyopathy - hx CABG and s/p NSTEMI in Dec 2019. Conduction system disease of the heart Hx of permanent pacemaker explant Acute on chronic systolic and diastolic CHF Pleural effusion Anemia Hypertension/HHD with labile BP. Avoid amiodarone Reassess for beta flori therapy based on heart rate range. Anti-failure and anti-anginal regimen with titration Vent support Abx per ID Continuous cardiac monitoring Anti-HTN regimen being titrated. Transfuse for further drop in hemoglobin Deni Willams MD Jan 28, 2020 23:11
[2020-01-29] VITALS: BP 130/68
[2020-01-29] MEDS: HydrALAZINE 25mg tab GT SCH ×4 (00:36→17:47)
[2020-01-29] MEDS: Acetaminophen 650mg/20.3ml GT PRN (02:01)
--- NOTE | 2020-01-29 02:01 | NUR ---
NURSE NOTES: Noted patient FLACC score of 3/10, non-pharmacological interventions provided but ineffective. PRN pain medication given. Will reassess and continue to monitor.
--- NOTE | 2020-01-29 02:30 | NUR ---
NURSE NOTES: Patient asleep and resting comfortably. PRN pain medication provided was effective. No acute distress at this time. Will continue to monitor.
[2020-01-29 04:00] VITALS: BP 134/63
[2020-01-29] MEDS: LORazepam Inj 2mg/ml 1ml IV SCH ×3 (06:15→22:00)
--- NOTE | 2020-01-29 06:30 | Hematology/Onc Progress Note ---
Assessment/Plan Assessment/Plan Assessment and Recs # Leukocytosis, now with pna v other process --> Cxr: : Large left pleural effusion, Bilateral interstitial and airspace infiltrates versus edema --> wbc 16-->26->30-->10->8 --> ABX zosyn-->angelo/vanc-->angelo/tobra --> ID recs are noted --> smear has been reviewed # Anemia of chronic disease due to underlying chronic medical issues, multifactorial --> Anemia workup has been reviewed, cw acd --> No evidence of hemolysis is noted, peripheral smear has been reviewed. --> Hgb goal >7. Transfuse prn. --> Epogen required in prior --> Medications have been reviewed --> low threshold for gi evaluation in case has occult + --> hgb 7.1-->7.8-->>>5.9-->7.3-->7-->7.2-->7.9 --> 1 unit prbc10/17, 2 units 12/3 --> gi eval as needed # Coagulopathy with inr 1.5 --> consider vit k/ffp as needed preprocedure --> labs noted # JAVIER initially >2 --> on ivfs --> per renal # Elevated d-dimer --> venous duplex ordered-->reviewed, is neg --> in prior neg # Dysphagia s/p peg --> as per gi # Thoracic aortic dissection --> s/p repair early 2017 # Chronic Resp failure -> s/p trach/vent # Psychiatric history on ativan/haldol # [place] resident # Dvt ppx --> scds The timing of this note does not necessarily reflect the time of the patient was seen. Greatly appreciate consultation. Subjective Constitutional: Denies: no symptoms, chills, fever, malaise, weakness, other HEENT: Denies: no symptoms, eye pain, blurred vision, tearing, double vision, ear pain, ear discharge, nose pain, nose congestion, throat pain, throat swelling, mouth pain, mouth swelling, other Cardiovascular: Denies: no symptoms, chest pain, edema, irregular heart rate, lightheadedness, palpitations, syncope, other Gastrointestinal/Abdominal: Denies: no symptoms, abdomen distended, abdominal pain, black stools, tarry stools, blood in stool, constipated, diarrhea, difficulty swallowing, nausea, poor appetite, poor fluid intake, rectal bleeding, vomiting, other Genitourinary: Denies: no symptoms, burning, discharge, frequency, flank pain, hematuria, incontinence, pain, urgency, other Allergies: Coded Allergies: No Known Allergies (Unverified , 10/10/17) All Systems: reviewed and negative except above Subjective 01/16 left femoral arden in place, on vent, icu, hgb better 01/18 labs are noted, wbc 30, hgb 7, may require prbc today 01/27 is off amio, on epoogen, hgb reviewed, 7.2, transfuse if unstable 01/28 pain meds given, some foaming around mouth, no bleeding Objective Objective Current Medications Medications (Trade) Dose Ordered Sig/Penny Route PRN Reason Start Time Stop Time Status Last Admin Dose Admin Acetaminophen (Tylenol) 500 mg Q6H PRN GT FEVER 01/21/20 20:45 02/20/20 20:44 01/29/20 02:01 Amlodipine Besylate (Norvasc) 5 mg BID GT 01/22/20 18:00 02/20/20 15:44 01/28/20 17:02 Aspirin (ASA) 81 mg DAILY GT 01/20/20 09:00 03/05/20 08:59 01/27/20 09:04 Atorvastatin Calcium (Lipitor) 10 mg BEDTIME GT 01/17/20 21:00 04/16/20 20:59 01/28/20 20:59 Chlorhexidine Gluconate (Ling-Hex 2%) 1 applic DAILY@1999 TOPIC 01/17/20 20:00 04/16/20 19:59 01/28/20 20:58 Dextrose (Dextrose 50%) 25 ml Q30M PRN IV Hypoglycemia 01/15/20 22:15 04/14/20 22:14 Dextrose (Dextrose 50%) 50 ml Q30M PRN IV Hypoglycemia 01/15/20 22:15 04/14/20 22:14 01/22/20 17:54 Epoetin Gelacio (Epoetin Gelacio(ESRD on dialysis)) 10,000 unit MON-WED-MON SUBQ 01/27/20 21:00 04/26/20 20:59 01/27/20 21:24 Hydralazine HCl (Apresoline) 25 mg Q6HR GT 01/26/20 18:15 04/25/20 18:14 01/29/20 06:15 Isosorbide Dinitrate (Isordil) 20 mg TID GT 01/25/20 09:00 02/19/20 08:59 01/28/20 17:02 Lansoprazole (Prevacid) 30 mg BID GT 01/19/20 18:00 02/18/20 17:59 01/28/20 17:02 Lorazepam (Ativan 2mg/ml 1ml) 0.5 mg EVERY 8 HOURS IV 01/23/20 22:00 01/30/20 21:59 01/29/20 06:15 Meropenem 500 mg/ Sodium Chloride 55 ml @ 110 mls/hr Q12HR IVPB 01/27/20 09:00 02/01/20 08:59 01/28/20 20:59 Metoclopramide HCl (Reglan) 5 mg Q6H PRN IVP Nausea & Vomiting 01/15/20 22:15 02/14/20 22:14 Metoprolol Tartrate (Lopressor) 25 mg Q12HR ORAL 01/27/20 21:00 04/22/20 20:59 01/28/20 20:59 Tobramycin Sulfate (Nebcin) 300 mg Q12HRT INH 01/23/20 22:00 01/31/20 23:59 01/28/20 22:34 Zinc Oxide (Zinc Oxide) 1 applic TIDPRN PRN TOPIC diogenes GT 01/16/20 13:15 04/15/20 13:14 01/16/20 14:55 Last 24 Hour Vital Signs Date Time Temp Pulse Resp B/P (MAP) Pulse Ox O2 Delivery O2 Flow Rate FiO2 01/29/20 06:15 134/63 01/29/20 06:15 68 19 134/63 100 01/29/20 04:00 99.5 68 19 134/63 (86) 100 01/29/20 04:00 40 01/29/20 04:00 Mechanical Ventilator Mechanical Ventilator 01/29/20 03:00 69 25 40 01/29/20 00:36 130/68 01/29/20 00:00 Mechanical Ventilator Mechanical Ventilator 01/29/20 00:00 98.1 65 19 130/68 (88) 100 01/28/20 23:25 66 18 125/60 100 01/28/20 22:55 66 18 125/60 100 01/28/20 22:38 66 18 100 Mechanical Ventilator 40 65 16 40 01/28/20 20:59 65 125/60 01/28/20 20:00 98.2 62 19 127/65 (85) 100 01/28/20 20:00 63 01/28/20 20:00 Mechanical Ventilator Mechanical Ventilator 01/28/20 20:00 40 01/28/20 18:50 65 19 40 01/28/20 18:25 125/60 01/28/20 17:02 125/60 01/28/20 17:02 62 125/60 01/28/20 16:00 63 01/28/20 16:00 98.1 65 19 125/60 (81) 100 01/28/20 15:57 40 01/28/20 15:56 Mechanical Ventilator Mechanical Ventilator 01/28/20 15:36 67 19 40 01/28/20 14:08 63 20 133/67 95 01/28/20 13:38 70 20 139/66 95 01/28/20 12:16 137/59 01/28/20 12:00 40 01/28/20 12:00 Mechanical Ventilator Mechanical Ventilator 01/28/20 12:00 98.1 61 19 142/77 (98) 100 01/28/20 12:00 59 01/28/20 11:40 142/77 01/28/20 11:39 74 142/77 01/28/20 11:34 62 18 100 Mechanical Ventilator 40 66 18 40 01/28/20 09:25 74 141/68 01/28/20 09:25 141/68 01/28/20 08:01 74 01/28/20 08:00 Mechanical Ventilator Mechanical Ventilator 01/28/20 08:00 40 01/28/20 08:00 99.9 72 19 141/68 (92) 100 01/28/20 07:01 75 17 40 01/28/20 06:50 76 23 144/79 98 01/28/20 06:20 144/79 01/28/20 06:20 76 23 144/79 98 01/28/20 04:00 Mechanical Ventilator Mechanical Ventilator 01/28/20 04:00 98.3 79 23 144/79 (100) 98 01/28/20 04:00 76 01/28/20 04:00 40 01/28/20 03:15 72 18 Mechanical Ventilator 40 01/28/20 00:14 152/71 01/28/20 00:00 Mechanical Ventilator Mechanical Ventilator 01/28/20 00:00 99.1 79 23 126/71 (89) 98 01/28/20 00:00 75 01/28/20 00:00 40 01/27/20 22:50 81 20 99 Mechanical Ventilator 40 84 16 40 01/27/20 21:54 67 23 142/70 98 01/27/20 21:25 67 142/70 01/27/20 21:24 67 23 142/70 98 01/27/20 20:00 Mechanical Ventilator Mechanical Ventilator 01/27/20 20:00 98.1 67 23 142/70 (94) 98 01/27/20 20:00 40 01/27/20 20:00 74 01/27/20 19:12 71 18 40 01/27/20 17:43 147/81 01/27/20 17:42 147/81 01/27/20 17:42 75 147/81 01/27/20 16:00 98.6 75 23 147/81 (103) 98 01/27/20 16:00 Mechanical Ventilator Mechanical Ventilator 01/27/20 16:00 40 01/27/20 15:10 77 01/27/20 15:05 63 14 40 01/27/20 14:26 77 20 146/77 99 01/27/20 13:56 60 20 152/69 92 01/27/20 13:00 152/69 01/27/20 12:00 Mechanical Ventilator Mechanical Ventilator 01/27/20 12:00 158/74 01/27/20 12:00 40 01/27/20 12:00 99.1 81 24 158/74 (102) 100 01/27/20 11:43 76 01/27/20 11:05 77 29 100 Mechanical Ventilator 40 79 17 40 01/27/20 09:04 145/65 01/27/20 09:04 73 145/65 01/27/20 09:04 73 145/65 01/27/20 08:55 40 01/27/20 08:02 75 01/27/20 08:00 Mechanical Ventilator Mechanical Ventilator 01/27/20 08:00 99.3 73 24 145/65 (91) 98 01/27/20 08:00 40 01/27/20 07:05 73 32 60 01/27/20 06:31 68 22 151/68 100 Intake and Output 01/28/20 01/29/20 19:00 07:00 Intake Total 740 ml Output Total 150 ml Balance 590 ml Free Water 300 ml Tube Feeding 440 ml Output Urine Total 150 ml Labs Test 01/27/20 03:55 01/28/20 03:45 White Blood Count 10.2 K/UL (4.8-10.8) 8.3 K/UL (4.8-10.8) Red Blood Count 2.56 M/UL (4.20-5.40) 2.79 M/UL (4.20-5.40) Hemoglobin 7.2 G/DL (12.0-16.0) 7.9 G/DL (12.0-16.0) Hematocrit 20.9 % (37.0-47.0) 23.5 % (37.0-47.0) Mean Corpuscular Volume 82 FL (80-99) 84 FL (80-99) Mean Corpuscular Hemoglobin 28.2 PG (27.0-31.0) 28.5 PG (27.0-31.0) Mean Corpuscular Hemoglobin Concent 34.4 G/DL (32.0-36.0) 33.7 G/DL (32.0-36.0) Red Cell Distribution Width 14.9 % (11.6-14.8) 14.8 % (11.6-14.8) Platelet Count 200 K/UL (150-450) 230 K/UL (150-450) Mean Platelet Volume 6.8 FL (6.5-10.1) 7.2 FL (6.5-10.1) Neutrophils (%) (Auto) % (45.0-75.0) % (45.0-75.0) Lymphocytes (%) (Auto) % (20.0-45.0) % (20.0-45.0) Monocytes (%) (Auto) % (1.0-10.0) % (1.0-10.0) Eosinophils (%) (Auto) % (0.0-3.0) % (0.0-3.0) Basophils (%) (Auto) % (0.0-2.0) % (0.0-2.0) Differential Total Cells Counted 100 Neutrophils % (Manual) 87 % (45-75) Lymphocytes % (Manual) 10 % (20-45) Monocytes % (Manual) 3 % (1-10) Eosinophils % (Manual) 0 % (0-3) Basophils % (Manual) 0 % (0-2) Band Neutrophils 0 % (0-8) Platelet Estimate Adequate Platelet Morphology Normal Hypochromasia 1+ Anisocytosis 1+ Sodium Level 140 MMOL/L (136-145) 141 MMOL/L (136-145) Potassium Level 4.2 MMOL/L (3.5-5.1) 3.9 MMOL/L (3.5-5.1) Chloride Level 101 MMOL/L (98-107) 101 MMOL/L (98-107) Carbon Dioxide Level 23 MMOL/L (21-32) 27 MMOL/L (21-32) Anion Gap 16 mmol/L (5-15) 13 mmol/L (5-15) Blood Urea Nitrogen 126 mg/dL (7-18) 90 mg/dL (7-18) Creatinine 4.3 MG/DL (0.55-1.30) 3.4 MG/DL (0.55-1.30) Estimat Glomerular Filtration Rate 11.1 mL/min (>60) 14.5 mL/min (>60) Glucose Level 89 MG/DL (74-106) 97 MG/DL (74-106) Calcium Level 7.9 MG/DL (8.5-10.1) 7.9 MG/DL (8.5-10.1) Total Bilirubin 0.5 MG/DL (0.2-1.0) 0.4 MG/DL (0.2-1.0) Aspartate Amino Transf (AST/SGOT) 30 U/L (15-37) 32 U/L (15-37) Alanine Aminotransferase (ALT/SGPT) 14 U/L (12-78) 15 U/L (12-78) Alkaline Phosphatase 222 U/L (46-116) 212 U/L (46-116) Total Protein 6.9 G/DL (6.4-8.2) 6.9 G/DL (6.4-8.2) Albumin 2.1 G/DL (3.4-5.0) 2.1 G/DL (3.4-5.0) Globulin 4.8 g/dL 4.8 g/dL Albumin/Globulin Ratio 0.4 (1.0-2.7) 0.4 (1.0-2.7) Amylase Level 339 U/L (25-115) 278 U/L (25-115) Lipase > 2000 U/L (73-393) 1696 U/L (73-393) Height (Feet): 5 Height (Inches): 6.00 Weight (Pounds): 150 Objective Physical Exam: Vitals: reviewed General: NAD HEENT: nc, at Neck: supple ++trach/vent Chest: clear breath sounds bilaterally Cardiovascular: RRR, no s3, s4 Abdomen: soft, nontender, nd +gtube Extremities: no cce, normal range of motion Neuro: alert Evan Muhammad MD Jan 29, 2020 06:30
--- NOTE | 2020-01-29 07:15 | NUR ---
NURSE HAND-OFF REPORT: Important Events on Shift:Tylenol given. Patient Status: Stable Diet: GT feeding Pending Orders: Pending Results/Labs: Pending MD notification: Latest Vital Signs: Temperature 99.5 , Pulse 68 , B/P 134 /63 , Respiratory Rate 19 , O2 SAT 100 , Mechanical Ventilator, O2 Flow Rate . Vital Sign Comment: WNL EKG Rhythm: Sinus Rhythm Rhythm change?: N MD Notified?: Gabriel Willams MD Response: Order Received& Read Back Latest Chav[place] Fall Score: 70 Fall Risk: High Risk Safety Measures: Call light Within Reach, Bed Alarm Zone 1, Side Rails Side Rails x3, Bed position Low and Locked. Fall Precautions: Yellow Socks Report given to ERASMO Medel.
--- NOTE | 2020-01-29 07:20 | NUR ---
NURSE NOTES: Received patient report from ERASMO Malhotra. Patient is AOx1 in bed, awake. No pain or discomfort noted at this time. Patient on contact isolation. Breathing is even and unlabored with no signs of respiratory distress. Bed in lowest position, locked with side rails up x2. Call light within reach.
[2020-01-29 08:00] VITALS: BP 135/62
--- NOTE | 2020-01-29 08:10 | Infectious Diseases Prog Note ---
Assessment/Plan 49yo F with: AF Sepsis Leukocytosis Hypoxia on vent Pneumonia c/b L pleural effusion (recurrent, prior determined to be transudative) - s/p thora 01/21, 1050cc removed Volume overload, BNP >35,0000, likely 2/2 progressive CKD --> ESRD ?Pancreatitis, Lipase >2000 Acute anemia to 5s CONS bacteremia, ?contaminant Aflutter w/ RVR 01/13 BCx 2/2 +S. epi COVID PCR neg Flu neg CXR: Large left pleural effusion. Bilateral interstitial and airspace infiltrates versus edema MRSA nares neg 01/16 BCx NTD 01/17 BCx / +Staph auricularis (skin colonizer) 01/18 Resp cx +MDR CRE PsA (S-gent, I-colistin, R-polyB) 01/18 C.dif neg 01/18 CXR: Similar opacification of the left hemithorax likely representing combination of pleural effusion with atelectasis versus pneumonia/edema. Decreased but persistent hazy opacity throughout the right lung may represent edema versus infectious/inflammatory process. 01/20 BCx NTD 01/21 L thora 1050 cc removed, cx NTD 01/25 Wound cx from Gtube site +CRE Kleb pna (arnett-R) and GNRs 01/26 CT A/P: Limited exam, due to severe diffuse anasarca. Ascites. Bilateral pleural effusions. Basilar pulmonary atelectatic changes and consolidation. Gastrostomy. Atrophic left kidney with a nephroureteral stents again demonstrated. Possible retrococcygeal decubitus changes. Correlate with clinical findings, consider MRI if there is concern for sacral osteomyelitis. Right hip intertrochanteric fracture, also previously demonstrated. Left femoral dialysis catheter. Nonspecific right lobe liver lesion is unchanged, not well- demonstrated. ctasia bordering on aneurysmal dilatation and possible chronic dissection of the distal thoracic aorta, also previously described. JAVIER on CKD On previous admission Sep-Oct 2019 required HD for short period Going to start HD this admission again R/o COVID / COVID PCR neg 12/29 neg at [facility] per report H/o UTI 10/15 u/a wbc 30-40, nit neg, leuk +3; ucx ESBL P. mirablis, ESBL M. morganii //20 u/a wbc tnct, nit neg, leuk +3; ucx >100k MDR P. stuarti (S Ceftri axone, Meropenem) 10/07 u/a wbc tnct, nit neg, leuk ; ucx >100k VRE 10/15/19 u/a wbc tnct; ucx >100k ESBL P. stuarti (S ertapenem, aztreonam) H/o transudative pleural effusion 11/28 Sp Thora (w: 169, PMN: 2%, L: 49% , LDH: 57, prot 2.5); cx Neg H/o PNA 10/15/19 Resp cx ESBL P. mirabilis, MDR P.a. (S only to Gent) 09/22 Resp cx + MDR PsA (S-gent; I-colistin; R-levofloxacin, Zosyn, angelo) 09/16/19 Sp cx ESBL P. mirablis H/o PPM site (pocket) infection and pocket abscess 2ry to S. epi-11/2018, sp >6weeks IV vancomycin 11/27 SP ABBIE: no evidence for vegetation on any of the valves 11/26/18 SP PPM removal: OR findings:The fibrous capsule enclosing the generator was then opened and there was a [id number] amount of yellowish fluid drainage. The generator was then removed.Atrial and ventricular leads were detached. The necrotic tissue of the pocket was then removed and the pocket was flushed with an antibiotic solution. Capsule, wound tissue and lead tip cx: Neg 2d echo: no vegetation seen US chest: 4.6 x 3.4 x 0.9 cm hypoechoic/anechoic area overlying left chest pacemaker power pack. This could represent either a discrete fluid collection or a focal area of very edematous tissue. Infected fluid pocket also possible. 11/18 Bcx 3/4 S. epi; 11/20 Bcx neg; 11/24 Bcx Neg; 11/27 Bcx Neg CAD s/p CABG GERD/gastritis Afib HTN Dysphagia sp GT Aortic dissection s/p repair 2017 S/p PPM Parkinson's Disease Schizophrenia Anxiety COPD Chronic resp failure s/p trach Hx of tracheal bleeding [place] resident ([facility]) VRE and MRSA colonized Plan: Cont inhaled tobramycin #8/ given MDR PsA in resp cx Cont meropenem # Wound not treat CRE Kleb pna from G-tube cx, likely colonizer and no signs of active infection in that area Trend resp status, secretions F/u G-tube cx 01/25 +GNRs F/u Micro lab to perform sensi on MDR PsA from resp cx on Avycaz and Zerbaxa 01/23 SP vanco IV #10 given CONS/GPC bacteremia 01/16 SP Zosyn #2 01/14 SP dex 10mg in ED 12/10 SP IV Gentamycin #10 12/07 SP Meropenem #10 12/01 SP IV Vancomycin #5 11/28 Sp Cefepime #2 and IV Gentamycin x1 Monitor CBC/CMP Monitor temp curve, hemodynamics Monitor resp status D/w RN Thank you for this consult. [facility] will continue to follow. Subjective Allergies: Coded Allergies: No Known Allergies (Unverified , 10/10/17) AF, Tmax 99.9 NAD on vent 40% PEEP 5 Objective Last 24 Hour Vital Signs Date Time Temp Pulse Resp B/P (MAP) Pulse Ox O2 Delivery O2 Flow Rate FiO2 01/29/20 06:45 68 19 134/63 100 01/29/20 06:15 134/63 01/29/20 06:15 68 19 134/63 100 01/29/20 04:00 66 01/29/20 04:00 99.5 68 19 134/63 (86) 100 01/29/20 04:00 40 01/29/20 04:00 Mechanical Ventilator Mechanical Ventilator 01/29/20 03:00 69 25 40 01/29/20 00:36 130/68 01/29/20 00:00 Mechanical Ventilator Mechanical Ventilator 01/29/20 00:00 98.1 65 19 130/68 (88) 100 01/28/20 23:25 66 18 125/60 100 01/28/20 22:55 66 18 125/60 100 01/28/20 22:38 66 18 100 Mechanical Ventilator 40 65 16 40 01/28/20 20:59 65 125/60 01/28/20 20:00 98.2 62 19 127/65 (85) 100 01/28/20 20:00 63 01/28/20 20:00 Mechanical Ventilator Mechanical Ventilator 01/28/20 20:00 40 01/28/20 18:50 65 19 40 01/28/20 18:25 125/60 01/28/20 17:02 125/60 01/28/20 17:02 62 125/60 01/28/20 16:00 63 01/28/20 16:00 98.1 65 19 125/60 (81) 100 01/28/20 15:57 40 01/28/20 15:56 Mechanical Ventilator Mechanical Ventilator 01/28/20 15:36 67 19 40 01/28/20 14:08 63 20 133/67 95 01/28/20 13:38 70 20 139/66 95 01/28/20 12:16 137/59 01/28/20 12:00 40 01/28/20 12:00 Mechanical Ventilator Mechanical Ventilator 01/28/20 12:00 98.1 61 19 142/77 (98) 100 01/28/20 12:00 59 01/28/20 11:40 142/77 01/28/20 11:39 74 142/77 01/28/20 11:34 62 18 100 Mechanical Ventilator 40 66 18 40 01/28/20 09:25 74 141/68 01/28/20 09:25 141/68 Height (Feet): 5 Height (Inches): 6.00 Weight (Pounds): 150 Gen: NAD HEENT: NCAT, +trach CV: RRR Pulm: CTAB on vent Abd: Non-distended, +PEG with skin intact wo erythema or discharge, but brownish discharge on dressing Ext: No c/c/e Skin: No visible rashes Neuro: Awake, minimally interactive Lines: L fem HD cath Microbiology Date/Time Source Procedure Growth Status 01/26/20 15:20 Other(Specify in comment) Gram Stain - Final Resulted 01/26/20 15:20 Wound Culture - Preliminary Klebsiella Pneumoniae Gram Negative Bacillus 2 Resulted Current Medications Medications (Trade) Dose Ordered Sig/Penny Route PRN Reason Start Time Stop Time Status Last Admin Dose Admin Acetaminophen (Tylenol) 500 mg Q6H PRN GT FEVER 01/21/20 20:45 02/20/20 20:44 01/29/20 02:01 Amlodipine Besylate (Norvasc) 5 mg BID GT 01/22/20 18:00 02/20/20 15:44 01/28/20 17:02 Aspirin (ASA) 81 mg DAILY GT 01/20/20 09:00 03/05/20 08:59 01/27/20 09:04 Atorvastatin Calcium (Lipitor) 10 mg BEDTIME GT 01/17/20 21:00 04/16/20 20:59 01/28/20 20:59 Chlorhexidine Gluconate (Ling-Hex 2%) 1 applic DAILY@2000 TOPIC 01/17/20 20:00 04/16/20 19:59 01/28/20 20:58 Dextrose (Dextrose 50%) 25 ml Q30M PRN IV Hypoglycemia 01/15/20 22:15 04/14/20 22:14 Dextrose (Dextrose 50%) 50 ml Q30M PRN IV Hypoglycemia 01/15/20 22:15 04/14/20 22:14 01/22/20 17:54 Epoetin Gelacio (Epoetin Gelacio(ESRD on dialysis)) 10,000 unit SUBQ 01/27/20 21:00 04/26/20 20:59 01/27/20 21:24 Hydralazine HCl (Apresoline) 25 mg Q6HR GT 01/26/20 18:15 04/25/20 18:14 01/29/20 06:15 Isosorbide Dinitrate (Isordil) 20 mg TID GT 01/25/20 09:00 02/19/20 08:59 01/28/20 17:02 Lansoprazole (Prevacid) 30 mg BID GT 01/19/20 18:00 02/18/20 17:59 01/28/20 17:02 Lorazepam (Ativan 2mg/ml 1ml) 0.5 mg EVERY 8 HOURS IV 01/23/20 22:00 01/30/20 21:59 01/29/20 06:15 Meropenem 500 mg/ Sodium Chloride 55 ml @ 110 mls/hr Q12HR IVPB 01/27/20 09:00 02/01/20 08:59 01/28/20 20:59 Metoclopramide HCl (Reglan) 5 mg Q6H PRN IVP Nausea & Vomiting 01/15/20 22:15 02/14/20 22:14 Metoprolol Tartrate (Lopressor) 25 mg Q12HR ORAL 01/27/20 21:00 04/22/20 20:59 01/28/20 20:59 Tobramycin Sulfate (Nebcin) 300 mg Q12HRT INH 01/23/20 22:00 01/31/20 23:59 01/28/20 22:34 Zinc Oxide (Zinc Oxide) 1 applic TIDPRN PRN TOPIC diogenes GT 01/16/20 13:15 04/15/20 13:14 01/16/20 14:55 Ro Pack M.D. Jan 29, 2020 08:10
[2020-01-29] MEDS: Aspirin Baby 81mg GT SCH (08:26)
[2020-01-29] MEDS: Meropenem 500 MG in NS 55 ML IVPB SCH ×2 (08:33→20:22)
[2020-01-29] MEDS: Tobramycin for inhalation INH SCH ×2 (10:00→22:51)
--- NOTE | 2020-01-29 10:45 | General Progress Note ---
Subjective ROS Limited/Unobtainable: No Allergies: Coded Allergies: No Known Allergies (Unverified , 10/10/17) Objective Last 24 Hour Vital Signs Date Time Temp Pulse Resp B/P (MAP) Pulse Ox O2 Delivery O2 Flow Rate FiO2 01/29/20 08:27 69 135/62 01/29/20 08:26 69 135/62 01/29/20 08:26 135/62 01/29/20 08:00 Mechanical Ventilator Mechanical Ventilator 01/29/20 08:00 97.1 70 20 135/62 (86) 98 01/29/20 08:00 40 01/29/20 08:00 71 01/29/20 06:50 68 20 40 01/29/20 06:45 68 19 134/63 100 01/29/20 06:15 134/63 01/29/20 06:15 68 19 134/63 100 01/29/20 04:00 66 01/29/20 04:00 99.5 68 19 134/63 (86) 100 01/29/20 04:00 40 01/29/20 04:00 Mechanical Ventilator Mechanical Ventilator 01/29/20 03:00 69 25 40 01/29/20 00:36 130/68 01/29/20 00:00 Mechanical Ventilator Mechanical Ventilator 01/29/20 00:00 98.1 65 19 130/68 (88) 100 01/28/20 23:25 66 18 125/60 100 01/28/20 22:55 66 18 125/60 100 01/28/20 22:38 66 18 100 Mechanical Ventilator 40 65 16 40 01/28/20 20:59 65 125/60 01/28/20 20:00 98.2 62 19 127/65 (85) 100 01/28/20 20:00 63 01/28/20 20:00 Mechanical Ventilator Mechanical Ventilator 01/28/20 20:00 40 01/28/20 18:50 65 19 40 01/28/20 18:25 125/60 01/28/20 17:02 125/60 01/28/20 17:02 62 125/60 01/28/20 16:00 63 01/28/20 16:00 98.1 65 19 125/60 (81) 100 01/28/20 15:57 40 01/28/20 15:56 Mechanical Ventilator Mechanical Ventilator 12/15/20 15:36 67 19 40 01/28/20 14:08 63 20 133/67 95 01/28/20 13:38 70 20 139/66 95 01/28/20 12:16 137/59 01/28/20 12:00 40 01/28/20 12:00 Mechanical Ventilator Mechanical Ventilator 01/28/20 12:00 98.1 61 19 142/77 (98) 100 01/28/20 12:00 59 01/28/20 11:40 142/77 01/28/20 11:39 74 142/77 01/28/20 11:34 62 18 100 Mechanical Ventilator 40 66 18 40 Intake and Output 01/28/20 01/29/20 19:00 07:00 Intake Total 780 ml 560 ml Output Total 150 ml 150 ml Balance 630 ml 410 ml Free Water 300 ml 120 ml Tube Feeding 480 ml 440 ml Output Urine Total 150 ml 150 ml Height (Feet): 5 Height (Inches): 6.00 Weight (Pounds): 150 General Appearance: no apparent distress EENT: normal ENT inspection Neck: supple Cardiovascular: normal rate Respiratory/Chest: decreased breath sounds Abdomen: normal bowel sounds, non tender, soft Extremities: non-tender Assessment/Plan Problem List: (1) Hx of CABG ICD Codes: Z95.1 - Presence of aortocoronary bypass graft SNOMED: 264234531, 168390408 (2) History of tracheostomy ICD Codes: Z98.890 - Other specified postprocedural states SNOMED: 606611206, 409559933 (3) PEG (percutaneous endoscopic gastrostomy) status ICD Codes: Z93.1 - Gastrostomy status SNOMED: 824685028, 812097953 (4) S/P aortic dissection repair ICD Codes: Z98.890 - Other specified postprocedural states SNOMED: 307137157, 155223784 (5) Renal failure ICD Codes: N19 - Unspecified kidney failure SNOMED: 47464983, 319770483 (6) Anemia ICD Codes: D64.9 - Anemia, unspecified SNOMED: 250358347 Assessment/Plan: stable H&H at around 7 GTF HD per nephrology persistent elevated lipase\ ct reviewed Inder Mccauley MD Jan 29, 2020 10:45
--- NOTE | 2020-01-29 11:04 | Pulmonology Progress Note ---
Subjective ROS Limited/Unobtainable: No Interval Events: s/p HD Constitutional: Reports: no symptoms HEENT: Repors: no symptoms Respiratory: Reports: no symptoms Cardiovascular: Reports: no symptoms Gastrointestinal/Abdominal: Reports: no symptoms Allergies: Coded Allergies: No Known Allergies (Unverified , 10/10/17) All Systems: reviewed and negative except above Objective Last 24 Hour Vital Signs Date Time Temp Pulse Resp B/P (MAP) Pulse Ox O2 Delivery O2 Flow Rate FiO2 01/29/20 08:27 69 135/62 01/29/20 08:26 69 135/62 01/29/20 08:26 135/62 01/29/20 08:00 Mechanical Ventilator Mechanical Ventilator 01/29/20 08:00 97.1 70 20 135/62 (86) 98 01/29/20 08:00 40 01/29/20 08:00 71 01/29/20 06:50 68 20 40 01/29/20 06:45 68 19 134/63 100 01/29/20 06:15 134/63 01/29/20 06:15 68 19 134/63 100 01/29/20 04:00 66 01/29/20 04:00 99.5 68 19 134/63 (86) 100 01/29/20 04:00 40 01/29/20 04:00 Mechanical Ventilator Mechanical Ventilator 01/29/20 03:00 69 25 40 01/29/20 00:36 130/68 01/29/20 00:00 Mechanical Ventilator Mechanical Ventilator 01/29/20 00:00 98.1 65 19 130/68 (88) 100 01/28/20 23:25 66 18 125/60 100 01/28/20 22:55 66 18 125/60 100 01/28/20 22:38 66 18 100 Mechanical Ventilator 40 65 16 40 01/28/20 20:59 65 125/60 01/28/20 20:00 98.2 62 19 127/65 (85) 100 01/28/20 20:00 63 01/28/20 20:00 Mechanical Ventilator Mechanical Ventilator 01/28/20 20:00 40 01/28/20 18:50 65 19 40 01/28/20 18:25 125/60 01/28/20 17:02 125/60 01/28/20 17:02 62 125/60 12/15/20 16:00 63 01/28/20 16:00 98.1 65 19 125/60 (81) 100 01/28/20 15:57 40 01/28/20 15:56 Mechanical Ventilator Mechanical Ventilator 01/28/20 15:36 67 19 40 01/28/20 14:08 63 20 133/67 95 01/28/20 13:38 70 20 139/66 95 01/28/20 12:16 137/59 01/28/20 12:00 40 01/28/20 12:00 Mechanical Ventilator Mechanical Ventilator 01/28/20 12:00 98.1 61 19 142/77 (98) 100 01/28/20 12:00 59 01/28/20 11:40 142/77 01/28/20 11:39 74 142/77 01/28/20 11:34 62 18 100 Mechanical Ventilator 40 66 18 40 Intake and Output 01/28/20 01/29/20 19:00 07:00 Intake Total 780 ml 560 ml Output Total 150 ml 150 ml Balance 630 ml 410 ml Free Water 300 ml 120 ml Tube Feeding 480 ml 440 ml Output Urine Total 150 ml 150 ml General Appearance: no acute distress HEENT: normocephalic, other - trach Respiratory: chest wall non-tender, other - coarse lung sounds Cardiovascular: normal rate, regular rhythm Abdomen: soft, non tender Genitourinary: other - Norman Extremities: other - trace edema Microbiology Date/Time Source Procedure Growth Status 01/26/20 15:20 Other(Specify in comment) Gram Stain - Final Resulted 01/26/20 15:20 Wound Culture - Preliminary K.pneumoniae Carbapenem Resist Gram Negative Bacillus 2 Resulted Current Medications Medications (Trade) Dose Ordered Sig/Penny Route PRN Reason Start Time Stop Time Status Last Admin Dose Admin Acetaminophen (Tylenol) 500 mg Q6H PRN GT FEVER 01/21/20 20:45 02/20/20 20:44 01/29/20 02:01 Amlodipine Besylate (Norvasc) 5 mg BID GT 01/22/20 18:00 02/20/20 15:44 01/29/20 08:27 Aspirin (ASA) 81 mg DAILY GT 01/20/20 09:00 03/05/20 08:59 01/29/20 08:26 Atorvastatin Calcium (Lipitor) 10 mg BEDTIME GT 01/17/20 21:00 04/16/20 20:59 01/28/20 20:59 Chlorhexidine Gluconate (Ling-Hex 2%) 1 applic DAILY@2000 TOPIC 01/17/20 20:00 04/16/20 19:59 01/28/20 20:58 Dextrose (Dextrose 50%) 25 ml Q30M PRN IV Hypoglycemia 01/15/20 22:15 04/14/20 22:14 Dextrose (Dextrose 50%) 50 ml Q30M PRN IV Hypoglycemia 01/15/20 22:15 04/14/20 22:14 01/22/20 17:54 Epoetin Gelacio (Epoetin Gelacio(ESRD on dialysis)) 10,000 unit MON-MON-MON SUBQ 01/27/20 21:00 04/26/20 20:59 01/27/20 21:24 Hydralazine HCl (Apresoline) 25 mg Q6HR GT 01/26/20 18:15 04/25/20 18:14 01/29/20 06:15 Isosorbide Dinitrate (Isordil) 20 mg TID GT 01/25/20 09:00 02/19/20 08:59 01/29/20 08:26 Lansoprazole (Prevacid) 30 mg BID GT 01/19/20 18:00 02/18/20 17:59 01/29/20 08:33 Lorazepam (Ativan 2mg/ml 1ml) 0.5 mg EVERY 8 HOURS IV 01/23/20 22:00 01/30/20 21:59 01/29/20 06:15 Meropenem 500 mg/ Sodium Chloride 55 ml @ 110 mls/hr Q12HR IVPB 01/27/20 09:00 02/01/20 08:59 01/29/20 08:33 Metoclopramide HCl (Reglan) 5 mg Q6H PRN IVP Nausea & Vomiting 01/15/20 22:15 02/14/20 22:14 Metoprolol Tartrate (Lopressor) 25 mg Q12HR ORAL 01/27/20 21:00 04/22/20 20:59 01/29/20 08:26 Tobramycin Sulfate (Nebcin) 300 mg Q12HRT INH 01/23/20 22:00 01/31/20 23:59 01/28/20 22:34 Zinc Oxide (Zinc Oxide) 1 applic TIDPRN PRN TOPIC diogenes GT 01/16/20 13:15 04/15/20 13:14 01/16/20 14:55 Assessment/Plan Assessment/Plan 1. Large left effusion. - S/p thoracentesis; CXR better - pleural fluid pathology report: negative for malignant cell 2. Chronic respiratory failure. - on trach - Cont AC mode - Currently saturating at 99% 3. Sepsis; improving 4. Anemia - improving - s/p transfusion - s/p Epogen s/p HD on broad-spectrum antibiotics. Pulmonary hygiene. DVT and GI prophylaxes. Elijah Hickman MD, MD Jan 29, 2020 11:04
--- NOTE | 2020-01-29 11:48 | NUR ---
NURSE NOTES: Dr Pack notified regarding patient result of KPC in wound. No new orders given at this time.
[2020-01-29 12:00] VITALS: BP 139/70
--- NOTE | 2020-01-29 12:05 | NUR ---
CASE MANAGEMENT:REVIEW 01/29/20 SI: SEPSIS. PNA. ACUTE RENAL FAILURE TRACH/VENT DEPENDENT 97.1 70 20 135/62 98% ON VENT SUPPORT W/40% FIO2 IS: IV MEROPENEM Q24 TOBRAMYCIN INH Q12 NORVASC GT BID LOPRESSOR GT Q12 ISORDIL GT TID ASA GT QD PREVACID GT BID : STEP DOWN UNIT DCP: FROM [facility] PLAN: EGD WHEN MORE STABLE
[2020-01-29] MEDS: Dakin's 0.125% Soln (Quarter Strength) 16oz TOPIC SCH (13:00)
--- NOTE | 2020-01-29 15:14 | Surgery Progress Note ---
Surgery Progress Note Subjective Procedure Performed Left femoral temporary hemodialysis catheter insertion Symptoms: improved, tolerating diet, passing flatus, BM Objective Last 24 Hour Vital Signs Date Time Temp Pulse Resp B/P (MAP) Pulse Ox O2 Delivery O2 Flow Rate FiO2 01/29/20 13:58 63 19 139/70 100 01/29/20 12:37 139/70 01/29/20 12:36 139/70 01/29/20 12:00 99.0 74 19 139/70 (93) 100 01/29/20 12:00 Mechanical Ventilator Mechanical Ventilator 01/29/20 12:00 63 01/29/20 12:00 40 01/29/20 11:28 78 24 100 Mechanical Ventilator 40 67 16 40 01/29/20 08:27 69 135/62 01/29/20 08:26 69 135/62 01/29/20 08:26 135/62 01/29/20 08:00 Mechanical Ventilator Mechanical Ventilator 01/29/20 08:00 97.1 70 20 135/62 (86) 98 01/29/20 08:00 40 01/29/20 08:00 71 01/29/20 06:50 68 20 40 01/29/20 06:45 68 19 134/63 100 01/29/20 06:15 134/63 01/29/20 06:15 68 19 134/63 100 01/29/20 04:00 66 01/29/20 04:00 99.5 68 19 134/63 (86) 100 01/29/20 04:00 40 01/29/20 04:00 Mechanical Ventilator Mechanical Ventilator 01/29/20 03:00 69 25 40 01/29/20 00:36 130/68 01/29/20 00:00 Mechanical Ventilator Mechanical Ventilator 01/29/20 00:00 98.1 65 19 130/68 (88) 100 01/28/20 23:25 66 18 125/60 100 01/28/20 22:55 66 18 125/60 100 01/28/20 22:38 66 18 100 Mechanical Ventilator 40 65 16 40 01/28/20 20:59 65 125/60 01/28/20 20:00 98.2 62 19 127/65 (85) 100 01/28/20 20:00 63 01/28/20 20:00 Mechanical Ventilator Mechanical Ventilator 01/28/20 20:00 40 01/28/20 18:50 65 19 40 01/28/20 18:25 125/60 01/28/20 17:02 125/60 01/28/20 17:02 62 125/60 01/28/20 16:00 63 01/28/20 16:00 98.1 65 19 125/60 (81) 100 01/28/20 15:57 40 01/28/20 15:56 Mechanical Ventilator Mechanical Ventilator 01/28/20 15:36 67 19 40 I&O Intake and Output 01/28/20 01/29/20 19:00 07:00 Intake Total 780 ml 560 ml Output Total 150 ml 150 ml Balance 630 ml 410 ml Free Water 300 ml 120 ml Tube Feeding 480 ml 440 ml Output Urine Total 150 ml 150 ml Dressing: saturated Cardiovascular: RSR Respiratory: decreased breath sounds Abdomen: non-tender, present bowel sounds Extremities: edema, no tenderness, no cyanosis Plan Problems: (1) Dehydration (2) Acidosis (3) Depression (4) Pleural effusion (5) Respiratory failure (6) Schizophrenia (7) Hypoxia (8) UTI (urinary tract infection) (9) Pneumonia (10) NSTEMI (non-ST elevated myocardial infarction) (11) Tracheostomy in place (12) Feeding by G-tube (13) JAVIER (acute kidney injury) (14) Acute encephalopathy (15) Sacral decubitus ulcer, stage IV (16) Chronic respiratory failure (17) Ascites (18) Bacteremia (19) Hypernatremia (20) Proteinuria (21) Electrolyte imbalance (22) ACS (acute coronary syndrome) (23) Aortic dissection, thoracic (24) Respiratory failure, acute and chronic (25) JAVIER (acute kidney injury) (26) Abrasion of lip, initial encounter (27) COPD with exacerbation (28) Elevated alkaline phosphatase level (29) Renal failure (ARF), acute on chronic (30) HCAP (healthcare-associated pneumonia) (31) GT CLOGGED (32) Elevated lipase (33) Pancreatitis (34) Elevated troponin (35) Hypokalemia (36) Hyponatremia (37) Anemia (38) Renal failure (39) ARF (acute renal failure) (40) Pacemaker (41) Sepsis Assessment & Plan: leukocytosis anemia on HD renal insufficiency wounds addressed pancreatitis cont diet as tolerating trend labs lf'ts okay pt presented on admission with Tracheostomy ,GT and Multiple Pressure Injuries. Skin assessment of skin under tracheal collar without evidence of skin breakdown. Peristomal GT site excoriated.Moderate amt of dark red sanguineous exudate. Full Thickness Sacral Pressure Injury with undermined borders (L)9 cm x (W)12cm x (D)1.8cm,Undermining clockwise8-9 by 2.2cm @1o'clock,undermining clockwise 1-4 by 1.9 @ 9'oclock Scattered necrotic tissue within wound bed. Borders are loose and necrotic with marginal erythema to outer perimeter of wound. NO elevation in skin temp noted periwound. Wound is malodorous. Small amt Brown exudate noted. Resolving Pressure Injury L Ischium(L)1.5cm x (W)1.5cm. Base of wound is 80% pink epithelial with an area that is moist and pink. NO odor or exudate noted. Bilat foot-drop noted. L Heel is boggy with non-blanchable erythema(L)4cm x (W)4cm. R heel is boggy with non-Blanchable erythema(L)5cm x (W)6cm. Tx.Plan: Cleanse sacral wound with Dakin's 0.125% annie. Loosely pack with Dakin's moistened Kerlix(Attention to undermined borders). Apply Moisture Barrier Paste periwound. Cover with Optifoam drsg. Change Daily and PRN. Apply Cavilon Skin Barrier to R and L Hels. Cover each heel with Optifoam drsg. Change every 7 days and prn. Reposition at least every 2hours or as tolerated. Off-load heels with Pillow. APM/JENNIFER MAttress overlay DAILY ESTIMATED NEEDS: Needs based on Critical care, wound, renal dysfunction 56 kg abw 28-33 kcals/kg 4718-9037 total kcals W/ HD (1.5-2.0) g protein/kg 84-112 g total protein Fluid per MD mL/kg . total fluid mLs NUTRITION DIAGNOSIS: * Swallowing difficulty R/T dysphagia, respiratory status as evidenced by vent dep via trach, GT Dep. * Increase kcal and pro needs r/t wound healing, renal dysfunction as evidenced by admitted w/ large, advanced sacral wound, previously stage 4, pending eval, admitted w/ JAVIER, pending HD. CURRENT TF:NPO ENTERAL NUTRITION RECOMMENDATIONS: Nepro @ 40ml/hr x 24 hrs + Prosource 1pkt QD to provide 960ml, 1728kcal, 78 g+11g prot, 698ml free water * As medically appropriate, initiate TF on Nepro, rec goal rate fo 40ml/hr x 24 hrs * Add Prosource 1pkt QD to better meet increased protein needs (additional 11g prot) * Water flush per MD/ HOB over 30 degrees ADDITIONAL RECOMMENDATIONS: * Per SNF in NOV 2019: HT=63"/ Rec daily calibrated bedscale wt * Monitor for continuity of HD: non-tunneled cath placement ordered * Monitor lytes and renal fxn for improvement (Na low, K and phos elevated) * Wound care: add Nephrovite x 1, ZnSO4 220mg QD x 10 days Reynaldo BID via PEG (mix w/ 2-4 oz water) * Monitor BG closely for hypoglycemia while NPO (h/o DM, on Nacl 3% to correct hyponatremia, consider accuchecks) (42) Hyponatremia Lane Saavedra Jan 29, 2020 15:14
[2020-01-29 16:00] VITALS: BP 142/66
--- NOTE | 2020-01-29 18:10 | Nephrology Progress Note ---
Assessment/Plan Problem List: (1) ARF (acute renal failure) (2) Pacemaker (3) Sepsis (4) Hyponatremia Assessment (1) JAVIER (acute kidney injury) (2) Renal failure (ARF), acute on chronic (3) Feeding by G-tube (4) Tracheostomy in place (5) Electrolyte imbalance, hyponatremia (6) Anemia, severe (7) Respiratory failure, acute and chronic (8) Elevated lipase, pancreatitis (9) Elevated troponin I (10) Sepsis Plan January 28: Patient last dialyzed January 26. No labs drawn today. Will order dialysis tomorrow. Check chemistry panel tomorrow. Continue per consultants. January 27: Patient was dialyzed yesterday . Labs were reviewed. Electrolytes within normal limit. Blood pressure stable. January 26: When visited the patient earlier today the patient was on dialysis. Tolerating well. Labs reviewed. Blood pressure stable. January 25: Dialysis for tomorrow. Labs reviewed. Hemoglobin remains low. Will adjust blood pressure medication. Hydralazine added to the regimen January 24: Last dialyzed January 22. Labs reviewed. Status quo. Will dialyze as needed. Low hemoglobin noted. Transfusion per PMD decision. Epogen started. \January 23: Dialyzed yesterday. Today's labs reviewed. Continue to monitor renal parameters and arrange for dialysis as needed. Continue per PMD. January 22: Seen earlier during dialysis. Labs reviewed. Medication list reviewed. Continue current management. January 21: Labs reviewed. Medication list reviewed. Next hemodialysis tomorrow. Blood pressure medication adjusted. January 20: Dialyzed yesterday. Labs reviewed. Continue per current management. Dialysis as needed. Add Norvasc to blood pressure regimen January 19: Due for dialysis today. Labs reviewed. Continue her current management. Continue to monitor renal parameters and electrolytes. January 18: Dialyzed yesterday. Labs reviewed. Renal parameters electrolytes much improved. Dialysis again tomorrow. Continue rest. January 17: Dialyzed this morning. Labs reviewed. Renal parameters and electrolyte abnormalities improved. Discussed with RN. Continue per consultants. January 16: Dialyzed yesterday. Labs improved. Next dialysis tomorrow. Continue per consultants. January 15: Patient to have dialysis catheter. Emergency dialysis for correction of uremia and electrolyte imbalances Antibiotics Transfusion Continue to monitor renal parameters Per orders Discussed with RN Subjective ROS Limited/Unobtainable: Yes Objective Objective Last 24 Hour Vital Signs Date Time Temp Pulse Resp B/P (MAP) Pulse Ox O2 Delivery O2 Flow Rate FiO2 01/29/20 17:47 142/66 01/29/20 17:47 142/66 01/29/20 17:47 73 142/66 01/29/20 16:00 73 01/29/20 16:00 98.3 71 20 142/66 (91) 100 01/29/20 16:00 Mechanical Ventilator Mechanical Ventilator 01/29/20 16:00 40 01/29/20 15:11 75 22 40 01/29/20 14:28 73 20 142/66 100 01/29/20 13:58 63 19 139/70 100 01/29/20 12:37 139/70 01/29/20 12:36 139/70 01/29/20 12:00 99.0 74 19 139/70 (93) 100 01/29/20 12:00 Mechanical Ventilator Mechanical Ventilator 01/29/20 12:00 63 01/29/20 12:00 40 01/29/20 11:28 78 24 100 Mechanical Ventilator 40 67 16 40 01/29/20 08:27 69 135/62 01/29/20 08:26 69 135/62 01/29/20 08:26 135/62 01/29/20 08:00 Mechanical Ventilator Mechanical Ventilator 01/29/20 08:00 97.1 70 20 135/62 (86) 98 01/29/20 08:00 40 01/29/20 08:00 71 01/29/20 06:50 68 20 40 01/29/20 06:45 68 19 134/63 100 01/29/20 06:15 134/63 01/29/20 06:15 68 19 134/63 100 01/29/20 04:00 66 01/29/20 04:00 99.5 68 19 134/63 (86) 100 01/29/20 04:00 40 01/29/20 04:00 Mechanical Ventilator Mechanical Ventilator 01/29/20 03:00 69 25 40 01/29/20 00:36 130/68 01/29/20 00:00 Mechanical Ventilator Mechanical Ventilator 01/29/20 00:00 98.1 65 19 130/68 (88) 100 01/28/20 23:25 66 18 125/60 100 01/28/20 22:55 66 18 125/60 100 01/28/20 22:38 66 18 100 Mechanical Ventilator 40 65 16 40 01/28/20 20:59 65 125/60 01/28/20 20:00 98.2 62 19 127/65 (85) 100 01/28/20 20:00 63 01/28/20 20:00 Mechanical Ventilator Mechanical Ventilator 01/28/20 20:00 40 01/28/20 18:50 65 19 40 01/28/20 18:25 125/60 Intake and Output 01/28/20 01/29/20 19:00 07:00 Intake Total 780 ml 560 ml Output Total 150 ml 150 ml Balance 630 ml 410 ml Free Water 300 ml 120 ml Tube Feeding 480 ml 440 ml Output Urine Total 150 ml 150 ml Laboratory Tests 01/28/20 19:38: POC Whole Blood Glucose 104 01/29/20 00:01: POC Whole Blood Glucose 96 01/29/20 06:08: POC Whole Blood Glucose 86 Height (Feet): 5 Height (Inches): 6.00 Weight (Pounds): 150 General Appearance: no apparent distress EENT: other - Trach to vent Cardiovascular: normal rate - Rate in mid 70s Respiratory/Chest: decreased breath sounds Abdomen: distended Johnny Houston MD Jan 29, 2020 18:10
--- NOTE | 2020-01-29 19:00 | NUR ---
NURSE NOTES: Received report from ERASMO Ang. pt is seen in semi- crisostomo's position. pt is sleeping but alert to name. Pt has Left hand g22 on TKO anf Left femoral arden cath with no bleeding noted in dressing. With raymond draining low urine output per previous RN, pt on dialysis. draining raul urine. No signs of resdpiratory distress with vent settings as ordered. O2 sat- 95%. Oral secretions suctioned. With Gtube flushed and no residual noted. patent and intact. running nephro at 40ml/ hr. tolerated well. Bed in lowest position, call light within reach. Per previous nurse no active bleeding right now. Continue to plan of care.
--- NOTE | 2020-01-29 19:05 | NUR ---
NURSE HAND-OFF REPORT: Important Events on Shift:NA Patient Status: Stable Diet: Gtube Nepro 40ml/hr Pending Orders: NA Pending Results/Labs:NA Pending notification:NA Latest Vital Signs: Temperature 98.3 , Pulse 72 , B/P 142 /66 , Respiratory Rate 19 , O2 SAT 100 , Mechanical Ventilator, O2 Flow Rate . Vital Sign Comment: Stable EKG Rhythm: Sinus Rhythm Rhythm change?: N MD Notified?: Gabriel Willams MD Response: Order Received& Read Back Latest Chavarria Fall Score: 70 Fall Risk: High Risk Safety Measures: Call light Within Reach, Bed Alarm Zone 1, Side Rails Side Rails x3, Bed position Low and Locked. Fall Precautions: Yellow Socks Report given to ERASMO Forte.
[2020-01-29 20:00] VITALS: BP 131/60
[2020-01-29] MEDS: Dyna-Hex 2% Top Sol 2oz TOPIC SCH (20:21)
[2020-01-29] MEDS: Epoetin Alfa-EPBX(ESRD on dialysis)10,000 unit/ml vial SUBQ SCH (20:27)
--- NOTE | 2020-01-29 22:00 | NUR ---
NURSE NOTES: Seen by Dr. Dong, informed that patient in ASA, okay to give it, per Dr. Dong no bleeding at this time. Not in respiratory distress-02 sat-99%.
--- NOTE | 2020-01-29 23:11 | General Progress Note ---
Subjective Constitutional: Reports: no symptoms HEENT: Reports: no symptoms Cardiovascular: Reports: no symptoms Respiratory: Reports: no symptoms Gastrointestinal/Abdominal: Reports: no symptoms Genitourinary: Reports: no symptoms Neurologic/Psychiatric: Reports: anxiety, weakness Endocrine: Reports: no symptoms Hematologic/Lymphatic: Reports: no symptoms Allergies: Coded Allergies: No Known Allergies (Unverified , 10/10/17) Objective Last 24 Hour Vital Signs Date Time Temp Pulse Resp B/P (MAP) Pulse Ox O2 Delivery O2 Flow Rate FiO2 01/29/20 22:51 73 22 100 Mechanical Ventilator 65 70 23 65 01/29/20 22:00 69 21 135/65 100 01/29/20 20:22 65 139/60 01/29/20 20:00 40 01/29/20 20:00 99.3 72 21 131/60 (83) 95 01/29/20 20:00 Mechanical Ventilator Mechanical Ventilator 01/29/20 19:15 72 19 40 01/29/20 17:47 142/66 01/29/20 17:47 142/66 01/29/20 17:47 73 142/66 01/29/20 16:00 73 01/29/20 16:00 98.3 71 20 142/66 (91) 100 01/29/20 16:00 Mechanical Ventilator Mechanical Ventilator 01/29/20 16:00 40 01/29/20 15:11 75 22 40 01/29/20 14:28 73 20 142/66 100 01/29/20 13:58 63 19 139/70 100 01/29/20 12:37 139/70 01/29/20 12:36 139/70 01/29/20 12:00 99.0 74 19 139/70 (93) 100 01/29/20 12:00 Mechanical Ventilator Mechanical Ventilator 01/29/20 12:00 63 01/29/20 12:00 40 01/29/20 11:28 78 24 100 Mechanical Ventilator 40 67 16 40 01/29/20 08:27 69 135/62 01/29/20 08:26 69 135/62 01/29/20 08:26 135/62 01/29/20 08:00 Mechanical Ventilator Mechanical Ventilator 01/29/20 08:00 97.1 70 20 135/62 (86) 98 01/29/20 08:00 40 01/29/20 08:00 71 01/29/20 06:50 68 20 40 01/29/20 06:45 68 19 134/63 100 01/29/20 06:15 134/63 01/29/20 06:15 68 19 134/63 100 01/29/20 04:00 66 01/29/20 04:00 99.5 68 19 134/63 (86) 100 01/29/20 04:00 40 01/29/20 04:00 Mechanical Ventilator Mechanical Ventilator 01/29/20 03:00 69 25 40 01/29/20 00:36 130/68 01/29/20 00:00 Mechanical Ventilator Mechanical Ventilator 01/29/20 00:00 98.1 65 19 130/68 (88) 100 01/28/20 23:25 66 18 125/60 100 Intake and Output 01/28/20 01/29/20 19:00 07:00 Intake Total 780 ml 600 ml Output Total 150 ml 150 ml Balance 630 ml 450 ml Free Water 300 ml 120 ml Tube Feeding 480 ml 480 ml Output Urine Total 150 ml 150 ml Laboratory Tests 01/29/20 00:01: POC Whole Blood Glucose 96 01/29/20 06:08: POC Whole Blood Glucose 86 Height (Feet): 5 Height (Inches): 6.00 Weight (Pounds): 150 General Appearance: alert, lethargic, confused EENT: normal ENT inspection Neck: non-tender, normal alignment, supple, normal inspection, abnormal alignment Cardiovascular: normal rate, regular rhythm, no gallop/murmur, no JVD Respiratory/Chest: lungs clear, normal breath sounds, no respiratory distress, no accessory muscle use Abdomen: normal bowel sounds, non tender, soft, no organomegaly, no mass Extremities: non-tender Neurologic: alert, responsive, aphasia Assessment/Plan Status Narrative Patient is awake alert febrile hemodynamically stable she is eye contact no verbal response or bleeding from the trachea DC'd aspirin has been resumed today laboratory tests reviewed stable without leukocytosis 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 MD Iker Mckeon Assa MD Jan 29, 2020 23:11
--- NOTE | 2020-01-29 23:46 | Cardiology Progress Note ---
Subjective DATE OF SERVICE: Jan 29, 2020 Remains in atrial fibrillation; rates controlled. Occasional PVC's - non- sustained BP range stable Full vent support via trach s/p left thorocentesis 01/22/20 Low hemoglobin; on epogen Objective Last 24 Hour Vital Signs Date Time Temp Pulse Resp B/P (MAP) Pulse Ox O2 Delivery O2 Flow Rate FiO2 01/29/20 22:51 73 22 100 Mechanical Ventilator 65 70 23 65 01/29/20 22:00 69 21 135/65 100 01/29/20 20:22 65 139/60 01/29/20 20:00 73 01/29/20 20:00 40 01/29/20 20:00 99.3 72 21 131/60 (83) 95 01/29/20 20:00 Mechanical Ventilator Mechanical Ventilator 01/29/20 19:15 72 19 40 01/29/20 17:47 142/66 01/29/20 17:47 142/66 01/29/20 17:47 73 142/66 01/29/20 16:00 73 01/29/20 16:00 98.3 71 20 142/66 (91) 100 01/29/20 16:00 Mechanical Ventilator Mechanical Ventilator 01/29/20 16:00 40 01/29/20 15:11 75 22 40 01/29/20 14:28 73 20 142/66 100 01/29/20 13:58 63 19 139/70 100 01/29/20 12:37 139/70 01/29/20 12:36 139/70 01/29/20 12:00 99.0 74 19 139/70 (93) 100 01/29/20 12:00 Mechanical Ventilator Mechanical Ventilator 01/29/20 12:00 63 01/29/20 12:00 40 01/29/20 11:28 78 24 100 Mechanical Ventilator 40 67 16 40 01/29/20 08:27 69 135/62 01/29/20 08:26 69 135/62 01/29/20 08:26 135/62 01/29/20 08:00 Mechanical Ventilator Mechanical Ventilator 01/29/20 08:00 97.1 70 20 135/62 (86) 98 01/29/20 08:00 40 01/29/20 08:00 71 01/29/20 06:50 68 20 40 01/29/20 06:45 68 19 134/63 100 01/29/20 06:15 134/63 01/29/20 06:15 68 19 134/63 100 01/29/20 04:00 66 01/29/20 04:00 99.5 68 19 134/63 (86) 100 01/29/20 04:00 40 01/29/20 04:00 Mechanical Ventilator Mechanical Ventilator 01/29/20 03:00 69 25 40 01/29/20 00:36 130/68 01/29/20 00:00 Mechanical Ventilator Mechanical Ventilator 01/29/20 00:00 98.1 65 19 130/68 (88) 100 ROS: unchanged for 01/17/20 HEENT: Mechanically Ventilated, Thick Trach secretions RHYTHM: Afib LUNGS: bilateral rhonchi, trach site clean CARDIAC: normal S1 and S2, irregularly irregular ABDOMEN: normal bowel sounds, non tender, soft, G-Tube intact EXTREMITIES: normal inspection, trace edema Laboratory Tests Test 01/29/20 00:01 01/29/20 06:08 POC Whole Blood Glucose 96 MG/DL (74-106) 86 MG/DL (74-106) Assessment/Plan Assessment/Plan Chronic respiratory failure with trach Severe sepsis PAFib with rapid ventric response. Ischemic cardiomyopathy - hx CABG and s/p NSTEMI in Dec 2019. Conduction system disease of the heart Hx of permanent pacemaker explant Acute on chronic systolic and diastolic CHF Pleural effusion Anemia Hypertension/HHD with labile BP. Reassess for beta flori therapy based on heart rate range. Anti-failure and anti-anginal regimen with titration Vent support Abx per ID Continuous cardiac monitoring Anti-HTN regimen being titrated. Transfuse for further drop in hemoglobin Deni Willams MD Jan 29, 2020 23:46
[2020-01-30] VITALS: BP 135/60
[2020-01-30] MEDS: HydrALAZINE 25mg tab GT SCH ×5 (00:08→23:12)
[2020-01-30 04:00] VITALS: BP 138/64
--- NOTE | 2020-01-30 04:54 | NUR ---
NURSE NOTES: Cleaned pt, sponge bath given. Not in respiratory distress. RT titrated down fio2- 40% tolerating well. Continue to monitor pt. No bleeding noted.
[2020-01-30] MEDS: LORazepam Inj 2mg/ml 1ml IV SCH ×2 (05:10→13:33)
[2020-01-30 05:30] LABS: MEAN CORPUSCULAR VOLUME 85 FL (80-99); PLATELET COUNT 241 K/UL (150-450); RED BLOOD COUNT 2.47 M/UL (4.20-5.40); RED CELL DISTRIBUTION WIDTH 14.3 % (11.6-14.8); WHITE BLOOD COUNT 6.2 K/UL (4.8-10.8)
[2020-01-30 05:40] LABS: CALCIUM 7.9 MG/DL (8.5-10.1); POTASSIUM 3.5 MMOL/L (3.5-5.1)
[2020-01-30 05:47] LABS: ALANINE AMINOTRANSFERASE 11 U/L (12-78); ALBUMIN 1.8 G/DL (3.4-5.0); ALKALINE PHOSPHATASE 175 U/L (46-116); ASPARTATE AMINO TRANSFERASE 27 U/L (15-37); BILIRUBIN,DIRECT 0.2 MG/DL (0.0-0.3); BILIRUBIN,TOTAL 0.4 MG/DL (0.2-1.0); PHOSPHORUS 5.2 MG/DL (2.5-4.9)
--- NOTE | 2020-01-30 06:33 | Hematology/Onc Progress Note ---
Assessment/Plan Assessment/Plan Assessment and Recs # Leukocytosis, now with pna v other process --> Cxr: : Large left pleural effusion, Bilateral interstitial and airspace infiltrates versus edema --> wbc 16-->26->30-->10->8 --> ABX zosyn-->angelo/vanc-->angelo/tobra --> ID recs are noted --> smear has been reviewed # Anemia of chronic disease due to underlying chronic medical issues, multifactorial --> Anemia workup has been reviewed, cw acd --> No evidence of hemolysis is noted, peripheral smear has been reviewed. --> Hgb goal >7. Transfuse prn. --> Epogen required, to continue --> Medications have been reviewed --> low threshold for gi evaluation in case has occult + --> hgb 7.1-->7.8-->>>5.9-->7.3-->7-->7.2-->7.9 --> 1 unit prbc10/17, 2 units 12/3 --> gi eval as needed # Coagulopathy with inr 1.5 --> consider vit k/ffp as needed preprocedure --> labs noted # JAVIER initially >2 --> on ivfs --> per renal # Elevated d-dimer --> venous duplex ordered-->reviewed, is neg --> in prior neg # Dysphagia s/p peg --> as per gi # Thoracic aortic dissection --> s/p repair early 2017 # Chronic Resp failure -> s/p trach/vent # Psychiatric history on ativan/haldol # [place] resident # Dvt ppx --> scds The timing of this note does not necessarily reflect the time of the patient was seen. Greatly appreciate consultation. Subjective HEENT: Denies: no symptoms, eye pain, blurred vision, tearing, double vision, ear pain, ear discharge, nose pain, nose congestion, throat pain, throat swelling, mouth pain, mouth swelling, other Cardiovascular: Denies: no symptoms, chest pain, edema, irregular heart rate, lightheadedness, palpitations, syncope, other Respiratory: Denies: no symptoms, cough, shortness of breath, SOB with excertion, SOB at rest, sputum, wheezing, other Gastrointestinal/Abdominal: Denies: no symptoms, abdomen distended, abdominal pain, black stools, tarry stools, blood in stool, constipated, diarrhea, difficulty swallowing, nausea, poor appetite, poor fluid intake, rectal bleeding, vomiting, other Neurologic/Psychiatric: Denies: no symptoms, anxiety, depressed, emotional problems, headache, numbness, paresthesia, pre-existing deficit, seizure, tingling, tremors, weakness, other Endocrine: Denies: no symptoms, excessive sweating, flushing, intolerance to cold, intolerance to heat, increased hunger, increased thirst, increased urine, unexplained weight gain, unexplained weight loss, other Allergies: Coded Allergies: No Known Allergies (Unverified , 10/10/17) Subjective 01/16 left femoral arden in place, on vent, icu, hgb better 01/18 labs are noted, wbc 30, hgb 7, may require prbc today 01/27 is off amio, on epoogen, hgb reviewed, 7.2, transfuse if unstable 01/28 pain meds given, some foaming around mouth, no bleeding 01/29 hd was done yesterday, no bleedig, cbc pending, asa given Objective Objective Current Medications Medications (Trade) Dose Ordered Sig/Penny Route PRN Reason Start Time Stop Time Status Last Admin Dose Admin Acetaminophen (Tylenol) 500 mg Q6H PRN GT FEVER 01/21/20 20:45 02/20/20 20:44 01/29/20 02:01 Amlodipine Besylate (Norvasc) 5 mg BID GT 01/22/20 18:00 02/20/20 15:44 01/29/20 17:47 Aspirin (ASA) 81 mg DAILY GT 01/20/20 09:00 03/05/20 08:59 01/29/20 08:26 Atorvastatin Calcium (Lipitor) 10 mg BEDTIME GT 01/17/20 21:00 04/16/20 20:59 01/29/20 20:22 Chlorhexidine Gluconate (Ling-Hex 2%) 1 applic DAILY@1999 TOPIC 01/17/20 20:00 04/16/20 19:59 01/29/20 20:21 Dextrose (Dextrose 50%) 25 ml Q30M PRN IV Hypoglycemia 01/15/20 22:15 04/14/20 22:14 Dextrose (Dextrose 50%) 50 ml Q30M PRN IV Hypoglycemia 01/15/20 22:15 04/14/20 22:14 01/22/20 17:54 Epoetin Gelacio (Epoetin Gelacio(ESRD on dialysis)) 10,000 unit MON- SUBQ 01/27/20 21:00 04/26/20 20:59 01/29/20 20:27 Hydralazine HCl (Apresoline) 25 mg Q6HR GT 01/26/20 18:15 04/25/20 18:14 01/30/20 05:09 Isosorbide Dinitrate (Isordil) 20 mg TID GT 01/25/20 09:00 02/19/20 08:59 01/29/20 17:47 Lansoprazole (Prevacid) 30 mg BID GT 01/19/20 18:00 02/18/20 17:59 01/29/20 17:47 Lorazepam (Ativan 2mg/ml 1ml) 0.5 mg EVERY 8 HOURS IV 01/23/20 22:00 01/30/20 21:59 01/30/20 05:10 Meropenem 500 mg/ Sodium Chloride 55 ml @ 110 mls/hr Q12HR IVPB 01/27/20 09:00 02/01/20 08:59 01/29/20 20:22 Metoclopramide HCl (Reglan) 5 mg Q6H PRN IVP Nausea & Vomiting 01/15/20 22:15 02/14/20 22:14 Metoprolol Tartrate (Lopressor) 25 mg Q12HR ORAL 01/27/20 21:00 04/22/20 20:59 01/29/20 20:22 Sodium Hypochlorite (Dakin's Quarter Strength) 1 applic DAILY TOPIC 01/29/20 13:00 02/28/20 12:59 01/29/20 13:00 Sodium Hypochlorite (Dakin's Quarter Strength) 1 applic DAILY TOPIC 01/30/20 09:00 02/29/20 08:59 Tobramycin Sulfate (Nebcin) 300 mg Q12HRT INH 01/23/20 22:00 01/31/20 23:59 01/29/20 22:51 Zinc Oxide (Zinc Oxide) 1 applic TIDPRN PRN TOPIC diogenes GT 01/16/20 13:15 04/15/20 13:14 01/16/20 14:55 Last 24 Hour Vital Signs Date Time Temp Pulse Resp B/P (MAP) Pulse Ox O2 Delivery O2 Flow Rate FiO2 01/30/20 05:40 75 19 136/64 99 01/30/20 05:10 70 17 140/64 99 01/30/20 05:09 140/64 01/30/20 04:00 40 01/30/20 04:00 72 01/30/20 04:00 Mechanical Ventilator Mechanical Ventilator 01/30/20 04:00 98.2 70 21 138/64 (88) 97 01/30/20 03:20 72 18 40 01/30/20 00:08 135/60 01/30/20 00:00 Mechanical Ventilator Mechanical Ventilator 01/30/20 00:00 99.5 65 15 135/60 (85) 99 01/30/20 00:00 66 01/30/20 00:00 40 01/29/20 22:51 73 22 100 Mechanical Ventilator 65 70 23 65 01/29/20 22:00 69 21 135/65 100 01/29/20 20:22 65 139/60 01/29/20 20:00 73 01/29/20 20:00 40 01/29/20 20:00 99.3 72 21 131/60 (83) 95 01/29/20 20:00 Mechanical Ventilator Mechanical Ventilator 01/29/20 19:15 72 19 40 01/29/20 17:47 142/66 01/29/20 17:47 142/66 01/29/20 17:47 73 142/66 01/29/20 16:00 73 01/29/20 16:00 98.3 71 20 142/66 (91) 100 01/29/20 16:00 Mechanical Ventilator Mechanical Ventilator 01/29/20 16:00 40 01/29/20 15:11 75 22 40 01/29/20 14:28 73 20 142/66 100 01/29/20 13:58 63 19 139/70 100 01/29/20 12:37 139/70 01/29/20 12:36 139/70 01/29/20 12:00 99.0 74 19 139/70 (93) 100 01/29/20 12:00 Mechanical Ventilator Mechanical Ventilator 01/29/20 12:00 63 01/29/20 12:00 40 01/29/20 11:28 78 24 100 Mechanical Ventilator 40 67 16 40 01/29/20 08:27 69 135/62 01/29/20 08:26 69 135/62 01/29/20 08:26 135/62 01/29/20 08:00 Mechanical Ventilator Mechanical Ventilator 01/29/20 08:00 97.1 70 20 135/62 (86) 98 01/29/20 08:00 40 01/29/20 08:00 71 01/29/20 06:50 68 20 40 01/29/20 06:45 68 19 134/63 100 01/29/20 06:15 134/63 01/29/20 06:15 68 19 134/63 100 01/29/20 04:00 66 01/29/20 04:00 99.5 68 19 134/63 (86) 100 01/29/20 04:00 40 01/29/20 04:00 Mechanical Ventilator Mechanical Ventilator 01/29/20 03:00 69 25 40 01/29/20 00:36 130/68 01/29/20 00:00 Mechanical Ventilator Mechanical Ventilator 01/29/20 00:00 98.1 65 19 130/68 (88) 100 01/28/20 23:25 66 18 125/60 100 01/28/20 22:55 66 18 125/60 100 01/28/20 22:38 66 18 100 Mechanical Ventilator 40 65 16 40 01/28/20 20:59 65 125/60 01/28/20 20:00 98.2 62 19 127/65 (85) 100 01/28/20 20:00 63 01/28/20 20:00 Mechanical Ventilator Mechanical Ventilator 01/28/20 20:00 40 01/28/20 18:50 65 19 40 01/28/20 18:25 125/60 01/28/20 17:02 125/60 01/28/20 17:02 62 125/60 01/28/20 16:00 63 01/28/20 16:00 98.1 65 19 125/60 (81) 100 01/28/20 15:57 40 01/28/20 15:56 Mechanical Ventilator Mechanical Ventilator 01/28/20 15:36 67 19 40 01/28/20 14:08 63 20 133/67 95 01/28/20 13:38 70 20 139/66 95 01/28/20 12:16 137/59 01/28/20 12:00 40 01/28/20 12:00 Mechanical Ventilator Mechanical Ventilator 01/28/20 12:00 98.1 61 19 142/77 (98) 100 01/28/20 12:00 59 01/28/20 11:40 142/77 01/28/20 11:39 74 142/77 01/28/20 11:34 62 18 100 Mechanical Ventilator 40 66 18 40 01/28/20 09:25 74 141/68 01/28/20 09:25 141/68 01/28/20 08:01 74 01/28/20 08:00 Mechanical Ventilator Mechanical Ventilator 01/28/20 08:00 40 01/28/20 08:00 99.9 72 19 141/68 (92) 100 01/28/20 07:01 75 17 40 01/28/20 06:50 76 23 144/79 98 Intake and Output 01/29/20 01/30/20 19:00 07:00 Intake Total 630 ml 700 ml Output Total 400 ml 250 ml Balance 230 ml 450 ml Free Water 150 ml 150 ml IV Total 110 ml Tube Feeding 480 ml 440 ml Output Urine Total 400 ml 250 ml Labs Test 01/27/20 12:28 01/27/20 17:49 01/27/20 23:59 01/28/20 03:45 POC Whole Blood Glucose 71 MG/DL (74-106) 71 MG/DL (74-106) 102 MG/DL (74-106) White Blood Count 8.3 K/UL (4.8-10.8) Red Blood Count 2.79 M/UL (4.20-5.40) Hemoglobin 7.9 G/DL (12.0-16.0) Hematocrit 23.5 % (37.0-47.0) Mean Corpuscular Volume 84 FL (80-99) Mean Corpuscular Hemoglobin 28.5 PG (27.0-31.0) Mean Corpuscular Hemoglobin Concent 33.7 G/DL (32.0-36.0) Red Cell Distribution Width 14.8 % (11.6-14.8) Platelet Count 230 K/UL (150-450) Mean Platelet Volume 7.2 FL (6.5-10.1) Neutrophils (%) (Auto) % (45.0-75.0) Lymphocytes (%) (Auto) % (20.0-45.0) Monocytes (%) (Auto) % (1.0-10.0) Eosinophils (%) (Auto) % (0.0-3.0) Basophils (%) (Auto) % (0.0-2.0) Sodium Level 141 MMOL/L (136-145) Potassium Level 3.9 MMOL/L (3.5-5.1) Chloride Level 101 MMOL/L (98-107) Carbon Dioxide Level 27 MMOL/L (21-32) Anion Gap 13 mmol/L (5-15) Blood Urea Nitrogen 90 mg/dL (7-18) Creatinine 3.4 MG/DL (0.55-1.30) Estimat Glomerular Filtration Rate 14.5 mL/min (>60) Glucose Level 97 MG/DL (74-106) Calcium Level 7.9 MG/DL (8.5-10.1) Total Bilirubin 0.4 MG/DL (0.2-1.0) Aspartate Amino Transf (AST/SGOT) 32 U/L (15-37) Alanine Aminotransferase (ALT/SGPT) 15 U/L (12-78) Alkaline Phosphatase 212 U/L (46-116) Total Protein 6.9 G/DL (6.4-8.2) Albumin 2.1 G/DL (3.4-5.0) Globulin 4.8 g/dL Albumin/Globulin Ratio 0.4 (1.0-2.7) Amylase Level 278 U/L (25-115) Lipase 1696 U/L (73-393) Test 01/28/20 06:28 01/28/20 11:28 01/28/20 19:38 01/29/20 00:01 POC Whole Blood Glucose 91 MG/DL (74-106) 104 MG/DL (74-106) 104 MG/DL (74-106) 96 MG/DL (74-106) Test 01/29/20 06:08 01/30/20 00:56 01/30/20 03:00 01/30/20 05:52 POC Whole Blood Glucose 86 MG/DL (74-106) 95 MG/DL (74-106) 94 MG/DL (74-106) White Blood Count 6.2 K/UL (4.8-10.8) Red Blood Count 2.47 M/UL (4.20-5.40) Hemoglobin 7.0 G/DL (12.0-16.0) Hematocrit 21.0 % (37.0-47.0) Mean Corpuscular Volume 85 FL (80-99) Mean Corpuscular Hemoglobin 28.2 PG (27.0-31.0) Mean Corpuscular Hemoglobin Concent 33.1 G/DL (32.0-36.0) Red Cell Distribution Width 14.3 % (11.6-14.8) Platelet Count 241 K/UL (150-450) Mean Platelet Volume 6.6 FL (6.5-10.1) Neutrophils (%) (Auto) % (45.0-75.0) Lymphocytes (%) (Auto) % (20.0-45.0) Monocytes (%) (Auto) % (1.0-10.0) Eosinophils (%) (Auto) % (0.0-3.0) Basophils (%) (Auto) % (0.0-2.0) Sodium Level 137 MMOL/L (136-145) Potassium Level 3.5 MMOL/L (3.5-5.1) Chloride Level 100 MMOL/L (98-107) Carbon Dioxide Level 26 MMOL/L (21-32) Anion Gap 11 mmol/L (5-15) Blood Urea Nitrogen 110 mg/dL (7-18) Creatinine 4.0 MG/DL (0.55-1.30) Estimat Glomerular Filtration Rate 12.0 mL/min (>60) Glucose Level 88 MG/DL (74-106) Calcium Level 7.9 MG/DL (8.5-10.1) Phosphorus Level 5.2 MG/DL (2.5-4.9) Magnesium Level 2.5 MG/DL (1.8-2.4) Total Bilirubin 0.4 MG/DL (0.2-1.0) Direct Bilirubin 0.2 MG/DL (0.0-0.3) Aspartate Amino Transf (AST/SGOT) 27 U/L (15-37) Alanine Aminotransferase (ALT/SGPT) 11 U/L (12-78) Alkaline Phosphatase 175 U/L (46-116) Total Protein 6.5 G/DL (6.4-8.2) Albumin 1.8 G/DL (3.4-5.0) Lipase 1440 U/L (73-393) Height (Feet): 5 Height (Inches): 6.00 Weight (Pounds): 150 Objective Physical Exam: Vitals: reviewed General: NAD HEENT: nc, at Neck: supple ++trach/vent Chest: clear breath sounds bilaterally Cardiovascular: RRR, no s3, s4 Abdomen: soft, nontender, nd +gtube Extremities: no cce, normal range of motion Neuro: alert Evan Muhammad MD Jan 30, 2020 06:33
--- NOTE | 2020-01-30 06:39 | NUR ---
NURSE NOTES: Consent signed by Dr. bravo. Will refer to AM shift. No active bleeding noted.
--- NOTE | 2020-01-30 06:39 | NUR ---
NURSE NOTES: Noted to have low hgb level of 7.0, Dr. Muhammad made aware. Ordered PRBC x 1. Noted and carried out.
--- NOTE | 2020-01-30 07:00 | NUR ---
NURSE HAND-OFF REPORT: Important Events on Shift: hgb- 7.0-dr. Muhammad is aware, PRBC x 1 ordered. No active bleeding, ASA okay to give per Dr. Dong, Dialysis today. Phosporus and magnesium slightly high- refer to AM. Patient Status: Guarded/stable Diet: GTF Pending Orders: None Pending Results/Labs: None Pending MD notification: None Latest Vital Signs: Temperature 98.2 , Pulse 75 , B/P 136 /64 , Respiratory Rate 19 , O2 SAT 99 , Mechanical Ventilator, O2 Flow Rate . Vital Sign Comment: WNL EKG Rhythm: Sinus Rhythm Rhythm change?: N MD Notified?: Y -Dr. Екатерина HATFIELD Response: Order Received& Read Back Latest [place] Fall Score: 70 Fall Risk: High Risk Safety Measures: Call light Within Reach, Bed Alarm Zone 1, Side Rails Side Rails x3, Bed position Low and Locked. Fall Precautions: Yellow Socks Report given to [ERASMO Ang].
--- NOTE | 2020-01-30 07:05 | NUR ---
NURSE NOTES: Received patient report from ERASMO Forte. Pt is AO x2 in bed, awake. Pt has Left hand g22 on TKO anf Left femoral arden cath with no bleeding noted in dressing. Breathing is even and unlabored with no signs of respiratory distress. With Gtube flushed and no residual noted. patent and intact. running nephro at 40ml/ hr. Bed in lowest position, locked with side rails x2 up. Call light within reach.
--- NOTE | 2020-01-30 07:20 | NUR ---
RESPIRATORY NOTE: PT RECEIVED STABLE ON CMV WITH CURRENT SETTINGS: AC/VC 14, 500, 40%, +5. ALARMS ARE ON AND AUDIBLE. VENT CIRCUIT IS SECURE AND OUT OF THE WAY. NO S/S OF RESPIRATORY DISTRESS NOTED AT THIS TIME WILL CONTINUE TO CLOSELY MONITOR.
--- NOTE | 2020-01-30 07:58 | Infectious Diseases Prog Note ---
Assessment/Plan 49yo F with: AF Sepsis Leukocytosis Hypoxia on vent Pneumonia c/b L pleural effusion (recurrent, prior determined to be transudative) - s/p thora 01/21, 1050cc removed Volume overload, BNP >35,0000, likely 2/2 progressive CKD --> ESRD ?Pancreatitis, Lipase >2000 Acute anemia to 5s CONS bacteremia, ?contaminant Aflutter w/ RVR 01/13 BCx 2/2 +S. epi COVID PCR neg Flu neg CXR: Large left pleural effusion. Bilateral interstitial and airspace infiltrates versus edema MRSA nares neg 01/16 BCx NTD 01/17 BCx /2 +Staph auricularis (skin colonizer) 01/18 Resp cx +MDR CRE PsA (S-gent, I-colistin, R-polyB) 01/18 C.dif neg 01/18 CXR: Similar opacification of the left hemithorax likely representing combination of pleural effusion with atelectasis versus pneumonia/edema. Decreased but persistent hazy opacity throughout the right lung may represent edema versus infectious/inflammatory process. 01/20 BCx NTD 01/21 L thora 1050 cc removed, cx NTD 01/25 Wound cx from Gtube site +CRE Kleb pna (arnett-R) and MDR PsA (colonizers) 01/26 CT A/P: Limited exam, due to severe diffuse anasarca. Ascites. Bilateral pleural effusions. Basilar pulmonary atelectatic changes and consolidation. Gastrostomy. Atrophic left kidney with a nephroureteral stents again demonstrated. Possible retrococcygeal decubitus changes. Correlate with clinical findings, consider MRI if there is concern for sacral osteomyelitis. Right hip intertrochanteric fracture, also previously demonstrated. Left femoral dialysis catheter. Nonspecific right lobe liver lesion is unchanged, not well- demonstrated. ctasia bordering on aneurysmal dilatation and possible chronic dissection of the distal thoracic aorta, also previously described. JAVIER on CKD On previous admission Sep-Oct 2019 required HD for short period Going to start HD this admission again R/o COVID / COVID PCR neg 12/[address] [facility] per report H/o UTI 10/15 u/a wbc 30-40, nit neg, leuk +3; ucx ESBL P. mirablis, ESBL M. morganii //20 u/a wbc tnct, nit neg, leuk +3; ucx >100k MDR P. stuarti (S Ceftriaxone, Meropenem) 10/07 u/a wbc tnct, nit neg, leuk ; ucx >100k VRE 10/15/19 u/a wbc tnct; ucx >100k ESBL P. stuarti (S ertapenem, aztreonam) H/o transudative pleural effusion 11/28 Sp Thora (w: 169, PMN: 2%, L: 49% , LDH: 57, prot 2.5); cx Neg H/o PNA 10/15/19 Resp cx ESBL P. mirabilis, MDR P.a. (S only to Gent) 09/22 Resp cx + MDR PsA (S-gent; I-colistin; R-levofloxacin, Zosyn, angelo) 09/16/19 Sp cx ESBL P. mirablis H/o PPM site (pocket) infection and pocket abscess 2ry to S. epi-11/2018, sp >6weeks IV vancomycin 11/27 SP ABBIE: no evidence for vegetation on any of the valves 11/26/18 SP PPM removal: OR findings:The fibrous capsule enclosing the generator was then opened and there was a [id number] amount of yellowish fluid drainage. The generator was then removed.Atrial and ventricular leads were detached. The necrotic tissue of the pocket was then removed and the pocket was flushed with an antibiotic solution. Capsule, wound tissue and lead tip cx: Neg 2d echo: no vegetation seen US chest: 4.6 x 3.4 x 0.9 cm hypoechoic/anechoic area overlying left chest pacemaker power pack. This could represent either a discrete fluid collection or a focal area of very edematous tissue. Infected fluid pocket also possible. 11/18 Bcx 3/4 S. epi; 11/20 Bcx neg; 11/24 Bcx Neg; 11/27 Bcx Neg CAD s/p CABG GERD/gastritis Afib HTN Dysphagia sp GT Aortic dissection s/p repair 2017 S/p PPM Parkinson's Disease Schizophrenia Anxiety COPD Chronic resp failure s/p trach Hx of tracheal bleeding [place] resident ([facility]) VRE and MRSA colonized Plan: Cont inhaled tobramycin #/ given MDR PsA in resp cx Cont meropenem #/ Wound not treat CRE Kleb pna nor MDR PsA from G-tube cx, likely colonizer and no signs of active infection in that area Trend resp status, secretions F/u Micro lab to perform sensi on MDR PsA from resp cx on Avycaz and Zerbaxa 01/23 SP vanco IV #10 given CONS/GPC bacteremia 01/16 SP Zosyn #2 01/14 SP dex 10mg in ED 12/10 SP IV Gentamycin #10 12/07 SP Meropenem #10 12/01 SP IV Vancomycin #5 11/28 Sp Cefepime #2 and IV Gentamycin x1 Monitor CBC/CMP Monitor temp curve, hemodynamics Monitor resp status D/w RN Thank you for this consult. [facility] will continue to follow. Subjective Allergies: Coded Allergies: No Known Allergies (Unverified , 10/10/17) AF, Tmax 99.5 NAD on vent 40% PEEP 5 WBC 6.2 Objective Last 24 Hour Vital Signs Date Time Temp Pulse Resp B/P (MAP) Pulse Ox O2 Delivery O2 Flow Rate FiO2 01/30/20 05:40 75 19 136/64 99 01/30/20 05:10 70 17 140/64 99 01/30/20 05:09 140/64 01/30/20 04:00 40 01/30/20 04:00 72 01/30/20 04:00 Mechanical Ventilator Mechanical Ventilator 01/30/20 04:00 98.2 70 21 138/64 (88) 97 01/30/20 03:20 72 18 40 01/30/20 00:08 135/60 01/30/20 00:00 Mechanical Ventilator Mechanical Ventilator 01/30/20 00:00 99.5 65 15 135/60 (85) 99 01/30/20 00:00 66 01/30/20 00:00 40 01/29/20 22:51 73 22 100 Mechanical Ventilator 65 70 23 65 01/29/20 22:00 69 21 135/65 100 01/29/20 20:22 65 139/60 01/29/20 20:00 73 01/29/20 20:00 40 01/29/20 20:00 99.3 72 21 131/60 (83) 95 01/29/20 20:00 Mechanical Ventilator Mechanical Ventilator 01/29/20 19:15 72 19 40 01/29/20 17:47 142/66 12/16/20 17:47 142/66 01/29/20 17:47 73 142/66 01/29/20 16:00 73 01/29/20 16:00 98.3 71 20 142/66 (91) 100 01/29/20 16:00 Mechanical Ventilator Mechanical Ventilator 01/29/20 16:00 40 01/29/20 15:11 75 22 40 01/29/20 14:28 73 20 142/66 100 01/29/20 13:58 63 19 139/70 100 01/29/20 12:37 139/70 01/29/20 12:36 139/70 01/29/20 12:00 99.0 74 19 139/70 (93) 100 01/29/20 12:00 Mechanical Ventilator Mechanical Ventilator 01/29/20 12:00 63 01/29/20 12:00 40 01/29/20 11:28 78 24 100 Mechanical Ventilator 40 67 16 40 01/29/20 08:27 69 135/62 01/29/20 08:26 69 135/62 01/29/20 08:26 135/62 01/29/20 08:00 Mechanical Ventilator Mechanical Ventilator 01/29/20 08:00 97.1 70 20 135/62 (86) 98 01/29/20 08:00 40 01/29/20 08:00 71 Height (Feet): 5 Height (Inches): 6.00 Weight (Pounds): 150 Gen: NAD HEENT: NCAT, +trach CV: RRR Pulm: CTAB on vent Abd: Non-distended, +PEG with skin intact wo erythema or discharge, but brownish discharge on dressing Ext: No c/c/e Skin: No visible rashes Neuro: Awake, minimally interactive Lines: L fem HD cath Laboratory Tests Test 01/30/20 00:56 01/30/20 03:00 01/30/20 05:52 POC Whole Blood Glucose 95 MG/DL (74-106) 94 MG/DL (74-106) White Blood Count 6.2 K/UL (4.8-10.8) Red Blood Count 2.47 M/UL (4.20-5.40) L Hemoglobin 7.0 G/DL (12.0-16.0) L Hematocrit 21.0 % (37.0-47.0) L Mean Corpuscular Volume 85 FL (80-99) Mean Corpuscular Hemoglobin 28.2 PG (27.0-31.0) Mean Corpuscular Hemoglobin Concent 33.1 G/DL (32.0-36.0) Red Cell Distribution Width 14.3 % (11.6-14.8) Platelet Count 241 K/UL (150-450) Mean Platelet Volume 6.6 FL (6.5-10.1) Neutrophils (%) (Auto) % (45.0-75.0) Lymphocytes (%) (Auto) % (20.0-45.0) Monocytes (%) (Auto) % (1.0-10.0) Eosinophils (%) (Auto) % (0.0-3.0) Basophils (%) (Auto) % (0.0-2.0) Sodium Level 137 MMOL/L (136-145) Potassium Level 3.5 MMOL/L (3.5-5.1) Chloride Level 100 MMOL/L (98-107) Carbon Dioxide Level 26 MMOL/L (21-32) Anion Gap 11 mmol/L (5-15) Blood Urea Nitrogen 110 mg/dL (7-18) H Creatinine 4.0 MG/DL (0.55-1.30) H Estimat Glomerular Filtration Rate 12.0 mL/min (>60) Glucose Level 88 MG/DL (74-106) Calcium Level 7.9 MG/DL (8.5-10.1) L Phosphorus Level 5.2 MG/DL (2.5-4.9) H Magnesium Level 2.5 MG/DL (1.8-2.4) H Total Bilirubin 0.4 MG/DL (0.2-1.0) Direct Bilirubin 0.2 MG/DL (0.0-0.3) Aspartate Amino Transf (AST/SGOT) 27 U/L (15-37) Alanine Aminotransferase (ALT/SGPT) 11 U/L (12-78) L Alkaline Phosphatase 175 U/L (46-116) H Total Protein 6.5 G/DL (6.4-8.2) Albumin 1.8 G/DL (3.4-5.0) L Lipase 1440 U/L (73-393) H Current Medications Medications (Trade) Dose Ordered Sig/Penny Route PRN Reason Start Time Stop Time Status Last Admin Dose Admin Acetaminophen (Tylenol) 500 mg Q6H PRN GT FEVER 01/21/20 20:45 02/20/20 20:44 01/29/20 02:01 Amlodipine Besylate (Norvasc) 5 mg BID GT 01/22/20 18:00 02/20/20 15:44 01/29/20 17:47 Aspirin (ASA) 81 mg DAILY GT 01/20/20 09:00 03/05/20 08:59 01/29/20 08:26 Atorvastatin Calcium (Lipitor) 10 mg BEDTIME GT 01/17/20 21:00 04/16/20 20:59 01/29/20 20:22 Chlorhexidine Gluconate (Ling-Hex 2%) 1 applic DAILY@2000 TOPIC 01/17/20 20:00 04/16/20 19:59 01/29/20 20:21 Dextrose (Dextrose 50%) 25 ml Q30M PRN IV Hypoglycemia 01/15/20 22:15 04/14/20 22:14 Dextrose (Dextrose 50%) 50 ml Q30M PRN IV Hypoglycemia 01/15/20 22:15 04/14/20 22:14 01/22/20 17:54 Epoetin Gelacio (Epoetin Gelacio(ESRD on dialysis)) 10,000 unit MON-MON-MON SUBQ 01/27/20 21:00 04/26/20 20:59 01/29/20 20:27 Hydralazine HCl (Apresoline) 25 mg Q6HR GT 01/26/20 18:15 04/25/20 18:14 01/30/20 05:09 Isosorbide Dinitrate (Isordil) 20 mg TID GT 01/25/20 09:00 02/19/20 08:59 01/29/20 17:47 Lansoprazole (Prevacid) 30 mg BID GT 01/19/20 18:00 02/18/20 17:59 01/29/20 17:47 Lorazepam (Ativan 2mg/ml 1ml) 0.5 mg EVERY 8 HOURS IV 01/23/20 22:00 01/30/20 21:59 01/30/20 05:10 Meropenem 500 mg/ Sodium Chloride 55 ml @ 110 mls/hr Q12HR IVPB 01/27/20 09:00 02/01/20 08:59 01/29/20 20:22 Metoclopramide HCl (Reglan) 5 mg Q6H PRN IVP Nausea & Vomiting 01/15/20 22:15 02/14/20 22:14 Metoprolol Tartrate (Lopressor) 25 mg Q12HR ORAL 01/27/20 21:00 04/22/20 20:59 01/29/20 20:22 Sodium Hypochlorite (Dakin's Quarter Strength) 1 applic DAILY TOPIC 01/29/20 13:00 02/28/20 12:59 01/29/20 13:00 Sodium Hypochlorite (Dakin's Quarter Strength) 1 applic DAILY TOPIC 01/30/20 09:00 02/29/20 08:59 Tobramycin Sulfate (Nebcin) 300 mg Q12HRT INH 01/23/20 22:00 01/31/20 23:59 01/29/20 22:51 Zinc Oxide (Zinc Oxide) 1 applic TIDPRN PRN TOPIC diogenes GT 01/16/20 13:15 04/15/20 13:14 01/16/20 14:55 Ro Pack M.D. Jan 30, 2020 07:58
[2020-01-30 08:00] VITALS: BP 138/63
[2020-01-30] MEDS: Meropenem 500 MG in NS 55 ML IVPB SCH ×2 (08:42→20:42)
[2020-01-30] MEDS: Aspirin Baby 81mg GT SCH (08:44)
[2020-01-30] MEDS: Dakin's 0.125% Soln (Quarter Strength) 16oz TOPIC SCH ×2 (09:00)
[2020-01-30] MEDS: Tobramycin for inhalation INH SCH ×2 (10:39→22:40)
[2020-01-30 12:00] VITALS: BP 133/65
--- NOTE | 2020-01-30 12:47 | General Progress Note ---
Subjective ROS Limited/Unobtainable: No Allergies: Coded Allergies: No Known Allergies (Unverified , 10/10/17) Objective Last 24 Hour Vital Signs Date Time Temp Pulse Resp B/P (MAP) Pulse Ox O2 Delivery O2 Flow Rate FiO2 01/30/20 10:39 62 17 100 Mechanical Ventilator 40 60 14 01/30/20 08:43 70 138/63 01/30/20 08:43 138/63 01/30/20 08:43 70 138/63 01/30/20 08:40 81 25 40 01/30/20 08:00 40 01/30/20 08:00 Mechanical Ventilator Mechanical Ventilator 01/30/20 08:00 99.1 70 17 138/63 (88) 100 01/30/20 08:00 67 01/30/20 07:20 82 22 40 01/30/20 05:40 75 19 136/64 99 01/30/20 05:10 70 17 140/64 99 01/30/20 05:09 140/64 01/30/20 04:00 40 01/30/20 04:00 72 01/30/20 04:00 Mechanical Ventilator Mechanical Ventilator 01/30/20 04:00 98.2 70 21 138/64 (88) 97 01/30/20 03:20 72 18 40 01/30/20 00:08 135/60 01/30/20 00:00 Mechanical Ventilator Mechanical Ventilator 01/30/20 00:00 99.5 65 15 135/60 (85) 99 01/30/20 00:00 66 01/30/20 00:00 40 01/29/20 22:51 73 22 100 Mechanical Ventilator 65 70 23 65 01/29/20 22:00 69 21 135/65 100 01/29/20 20:22 65 139/60 01/29/20 20:00 73 01/29/20 20:00 40 01/29/20 20:00 99.3 72 21 131/60 (83) 95 01/29/20 20:00 Mechanical Ventilator Mechanical Ventilator 01/29/20 19:15 72 19 40 20 17:47 142/66 01/29/20 17:47 142/66 01/29/20 17:47 73 142/66 01/29/20 16:00 73 01/29/20 16:00 98.3 71 20 142/66 (91) 100 01/29/20 16:00 Mechanical Ventilator Mechanical Ventilator 01/29/20 16:00 40 01/29/20 15:11 75 22 40 01/29/20 14:28 73 20 142/66 100 01/29/20 13:58 63 19 139/70 100 Intake and Output 01/29/20 01/30/20 19:00 07:00 Intake Total 630 ml 700 ml Output Total 400 ml 250 ml Balance 230 ml 450 ml Free Water 150 ml 150 ml IV Total 110 ml Tube Feeding 480 ml 440 ml Output Urine Total 400 ml 250 ml Laboratory Tests 01/30/20 00:56: POC Whole Blood Glucose 95 01/30/20 03:00: White Blood Count 6.2, Red Blood Count 2.47L, Hemoglobin 7.0L, Hematocrit 21.0L, Mean Corpuscular Volume 85, Mean Corpuscular Hemoglobin 28.2, Mean Corpuscular Hemoglobin Concent 33.1, Red Cell Distribution Width 14.3, Platelet Count 241, Mean Platelet Volume 6.6, Neutrophils (%) (Auto) , Lymphocytes (%) (Auto) , Monocytes (%) (Auto) , Eosinophils (%) (Auto) , Basophils (%) (Auto) , Sodium Level 137, Potassium Level 3.5, Chloride Level 100, Carbon Dioxide Level 26, Anion Gap 11, Blood Urea Nitrogen 110H, Creatinine 4.0H, Estimat Glomerular Filtration Rate 12.0, Glucose Level 88, Calcium Level 7.9L, Phosphorus Level 5.2H, Magnesium Level 2.5H, Total Bilirubin 0.4, Direct Bilirubin 0.2, Aspartate Amino Transf (AST/SGOT) 27, Alanine Aminotransferase (ALT/SGPT) 11L, Alkaline Phosphatase 175H, Total Protein 6.5, Albumin 1.8L, Lipase 1440H 01/30/20 05:52: POC Whole Blood Glucose 94 Height (Feet): 5 Height (Inches): 6.00 Weight (Pounds): 150 General Appearance: no apparent distress EENT: normal ENT inspection Neck: supple Cardiovascular: normal rate Respiratory/Chest: decreased breath sounds Abdomen: normal bowel sounds, non tender, soft Extremities: non-tender Assessment/Plan Problem List: (1) Hx of CABG ICD Codes: Z95.1 - Presence of aortocoronary bypass graft SNOMED: 011882183, 457814321 (2) History of tracheostomy ICD Codes: Z98.890 - Other specified postprocedural states SNOMED: 032302850, 146523773 (3) PEG (percutaneous endoscopic gastrostomy) status ICD Codes: Z93.1 - Gastrostomy status SNOMED: 644446562, 274475946 (4) S/P aortic dissection repair ICD Codes: Z98.890 - Other specified postprocedural states SNOMED: 421194768, 454901276 (5) Renal failure ICD Codes: N19 - Unspecified kidney failure SNOMED: 03804208, 922238802 (6) Anemia ICD Codes: D64.9 - Anemia, unspecified SNOMED: 368181415 Assessment/Plan: stable H&H at around 7 transfuse one unit repeat stool ob GTF HD per nephrology persistent elevated lipase\ ct reviewed Inder Mccauley MD Jan 30, 2020 12:47
--- NOTE | 2020-01-30 12:59 | NUR ---
RD ASSESSMENT & RECOMMENDATIONS SEE CARE ACTIVITY FOR COMPLETE ASSESSMENT DAILY ESTIMATED NEEDS: Needs based on Critical care, wound, renal dysfunction 56 kg abw 28-33 kcals/kg 9668-2448 total kcals W/ HD (1.5-2.0) g protein/kg 84-112 g total protein Fluid per MD NUTRITION DIAGNOSIS: * Swallowing difficulty R/T dysphagia, respiratory status as evidenced by vent dep via trach, GT Dep. * Increase kcal and pro needs r/t wound healing, renal dysfunction as evidenced by admitted w/ stage 4 sacral wound, admitted w/ JAVIER, now on HD. CURRENT TF: Nepro @ 40ml/hr x 24 hrs ENTERAL NUTRITION RECOMMENDATIONS: Nepro @ 40ml/hr x 24 hrs + Prosource 1pkt QD to provide 960ml, 1728kcal, 78g+11g prot, 698ml free water * Maintain current TF @ goal as tolerated * Add Prosource 1pkt QD to better meet increased protein needs (additional 11g prot) * Water flush per MD/ HOB over 30 degrees ADDITIONAL RECOMMENDATIONS: * Per SNF in NOV 2019: HT=63"/ Rec daily calibrated bedscale wt * Monitor for continuity of HD: last HD 01/26 * Rec phos binders- consistently elevated phos level * Wound care: add Nephrovite x 1, ZnSO4 220mg QD x 10 days Reynaldo BID via PEG (mix w/ 2-4 oz water); vit C per nephro * Monitor TF tolerance: elev lipase, slowly trending down * Add bowel regimen: no BM x 4 days, last BM on 01/25.
--- NOTE | 2020-01-30 13:01 | Pulmonology Progress Note ---
Subjective ROS Limited/Unobtainable: No Interval Events: s/p HD Constitutional: Reports: no symptoms HEENT: Repors: no symptoms Respiratory: Reports: no symptoms Cardiovascular: Reports: no symptoms Gastrointestinal/Abdominal: Reports: no symptoms Allergies: Coded Allergies: No Known Allergies (Unverified , 10/10/17) All Systems: reviewed and negative except above Objective Last 24 Hour Vital Signs Date Time Temp Pulse Resp B/P (MAP) Pulse Ox O2 Delivery O2 Flow Rate FiO2 01/30/20 10:39 62 17 100 Mechanical Ventilator 40 60 14 01/30/20 08:43 70 138/63 01/30/20 08:43 138/63 01/30/20 08:43 70 138/63 01/30/20 08:40 81 25 40 01/30/20 08:00 40 01/30/20 08:00 Mechanical Ventilator Mechanical Ventilator 01/30/20 08:00 99.1 70 17 138/63 (88) 100 01/30/20 08:00 67 01/30/20 07:20 82 22 40 01/30/20 05:40 75 19 136/64 99 01/30/20 05:10 70 17 140/64 99 01/30/20 05:09 140/64 01/30/20 04:00 40 01/30/20 04:00 72 01/30/20 04:00 Mechanical Ventilator Mechanical Ventilator 01/30/20 04:00 98.2 70 21 138/64 (88) 97 01/30/20 03:20 72 18 40 01/30/20 00:08 135/60 01/30/20 00:00 Mechanical Ventilator Mechanical Ventilator 01/30/20 00:00 99.5 65 15 135/60 (85) 99 01/30/20 00:00 66 01/30/20 00:00 40 01/29/20 22:51 73 22 100 Mechanical Ventilator 65 70 23 65 01/29/20 22:00 69 21 135/65 100 01/29/20 20:22 65 139/60 01/29/20 20:00 73 01/29/20 20:00 40 01/29/20 20:00 99.3 72 21 131/60 (83) 95 01/29/20 20:00 Mechanical Ventilator Mechanical Ventilator 01/29/20 19:15 72 19 40 01/29/20 17:47 142/66 01/29/20 17:47 142/66 01/29/20 17:47 73 142/66 01/29/20 16:00 73 01/29/20 16:00 98.3 71 20 142/66 (91) 100 01/29/20 16:00 Mechanical Ventilator Mechanical Ventilator 01/29/20 16:00 40 01/29/20 15:11 75 22 40 01/29/20 14:28 73 20 142/66 100 01/29/20 13:58 63 19 139/70 100 Intake and Output 01/29/20 01/30/20 19:00 07:00 Intake Total 630 ml 700 ml Output Total 400 ml 250 ml Balance 230 ml 450 ml Free Water 150 ml 150 ml IV Total 110 ml Tube Feeding 480 ml 440 ml Output Urine Total 400 ml 250 ml Objective 01/30/2020 trach no leakage, saturating at 97% on vent. due for transfusion 01/28/2020 trach no leakage, saturating at 99% on vent 01/27/2020 trach site clean, no leakage; saturating 99% on vent 01/21/2020 trach site clean, no leakage noted; currently saturating 98% with AC 14, TV 500 FiO2 50%, PEEP 5. 01/20/2020 tracheostomy site clean, vent dependent patient, no leakage noted General Appearance: no acute distress HEENT: normocephalic, other - trach Respiratory: chest wall non-tender, other - coarse lung sounds Cardiovascular: normal rate, regular rhythm Abdomen: soft, non tender Genitourinary: other - Norman Extremities: other - trace edema Laboratory Tests 01/30/20 00:56: POC Whole Blood Glucose 95 01/30/20 03:00: White Blood Count 6.2, Red Blood Count 2.47L, Hemoglobin 7.0L, Hematocrit 21.0L, Mean Corpuscular Volume 85, Mean Corpuscular Hemoglobin 28.2, Mean Corpuscular Hemoglobin Concent 33.1, Red Cell Distribution Width 14.3, Platelet Count 241, Mean Platelet Volume 6.6, Neutrophils (%) (Auto) , Lymphocytes (%) (Auto) , Monocytes (%) (Auto) , Eosinophils (%) (Auto) , Basophils (%) (Auto) , Sodium Level 137, Potassium Level 3.5, Chloride Level 100, Carbon Dioxide Level 26, Anion Gap 11, Blood Urea Nitrogen 110H, Creatinine 4.0H, Estimat Glomerular Filtration Rate 12.0, Glucose Level 88, Calcium Level 7.9L, Phosphorus Level 5.2H, Magnesium Level 2.5H, Total Bilirubin 0.4, Direct Bilirubin 0.2, Aspartate Amino Transf (AST/SGOT) 27, Alanine Aminotransferase (ALT/SGPT) 11L, Alkaline Phosphatase 175H, Total Protein 6.5, Albumin 1.8L, Lipase 1440H 01/30/20 05:52: POC Whole Blood Glucose 94 Current Medications Medications (Trade) Dose Ordered Sig/Penny Route PRN Reason Start Time Stop Time Status Last Admin Dose Admin Acetaminophen (Tylenol) 500 mg Q6H PRN GT FEVER 01/21/20 20:45 02/20/20 20:44 01/29/20 02:01 Amlodipine Besylate (Norvasc) 5 mg BID GT 01/22/20 18:00 02/20/20 15:44 01/30/20 08:43 Aspirin (ASA) 81 mg DAILY GT 01/20/20 09:00 03/05/20 08:59 01/30/20 08:44 Atorvastatin Calcium (Lipitor) 10 mg BEDTIME GT 01/17/20 21:00 04/16/20 20:59 01/29/20 20:22 Chlorhexidine Gluconate (Ling-Hex 2%) 1 applic DAILY@1999 TOPIC 01/17/20 20:00 04/16/20 19:59 01/29/20 20:21 Dextrose (Dextrose 50%) 25 ml Q30M PRN IV Hypoglycemia 01/15/20 22:15 04/14/20 22:14 Dextrose (Dextrose 50%) 50 ml Q30M PRN IV Hypoglycemia 01/15/20 22:15 04/14/20 22:14 01/22/20 17:54 Epoetin Gelacio (Epoetin Gelacio(ESRD on dialysis)) 10,000 unit MON-MON-MON SUBQ 01/27/20 21:00 04/26/20 20:59 01/29/20 20:27 Hydralazine HCl (Apresoline) 25 mg Q6HR GT 01/26/20 18:15 04/25/20 18:14 01/30/20 05:09 Isosorbide Dinitrate (Isordil) 20 mg TID GT 01/25/20 09:00 02/19/20 08:59 01/30/20 08:43 Lansoprazole (Prevacid) 30 mg BID GT 01/19/20 18:00 02/18/20 17:59 01/30/20 08:42 Lorazepam (Ativan 2mg/ml 1ml) 0.5 mg EVERY 8 HOURS IV 01/23/20 22:00 01/30/20 21:59 01/30/20 05:10 Meropenem 500 mg/ Sodium Chloride 55 ml @ 110 mls/hr Q12HR IVPB 01/27/20 09:00 02/01/20 08:59 01/30/20 08:42 Metoclopramide HCl (Reglan) 5 mg Q6H PRN IVP Nausea & Vomiting 01/15/20 22:15 02/14/20 22:14 Metoprolol Tartrate (Lopressor) 25 mg Q12HR ORAL 01/27/20 21:00 04/22/20 20:59 01/30/20 08:43 Sodium Hypochlorite (Dakin's Quarter Strength) 1 applic DAILY TOPIC 01/29/20 13:00 02/28/20 12:59 01/29/20 13:00 Sodium Hypochlorite (Dakin's Quarter Strength) 1 applic DAILY TOPIC 01/30/20 09:00 02/29/20 08:59 Tobramycin Sulfate (Nebcin) 300 mg Q12HRT INH 01/23/20 22:00 01/31/20 23:59 01/30/20 10:39 Zinc Oxide (Zinc Oxide) 1 applic TIDPRN PRN TOPIC diogenes GT 01/16/20 13:15 04/15/20 13:14 01/16/20 14:55 Assessment/Plan Assessment/Plan Assessment/Plan 1. Large left effusion. - S/p thoracentesis; CXR better - pleural fluid pathology report: negative for malignant cell 2. Chronic respiratory failure. - on trach - Cont AC mode - Currently saturating at 97% 3. Sepsis; improving 4. Anemia - improving - s/p transfusion - s/p Epogen - repeat stool OB pending per Dr. Mccauley s/p HD on broad-spectrum antibiotics. Pulmonary hygiene. DVT and GI prophylaxes. The care for this patient was discussed with my supervising physician Time spent for this case as approximately 31 minutes The patient was seen and examined at bedside and all new and available data was reviewed in the patients chart. I agree with the above findings, impression, and plan. (Patient was seen earlier today. Signature timestamp does not reflect patient encounter time) Cruz Álvarez MD Jan 30, 2020 13:01 Elijah Stephen MD Jan 30, 2020 17:28
--- NOTE | 2020-01-30 14:37 | NUR ---
CASE MANAGEMENT:REVIEW 01/30/20 SI: SEPSIS. PNA. AC/CHR RENAL FAILURE(TEMPORARY HD CATH) TRACH/VENT DEPENDENT 98.8 67 17 133/65 100% ON VENT SUPPORT W/40% FIO2 h/h-7.0/21.0 BUN+110 CR+4.0 IS: TRANSFUSE 1UNIT PRBC (5 TOTAL SINCE ADMISSION) IV MEROPENEM Q24 TOBRAMYCIN INH Q12 NORVASC GT BID LOPRESSOR GT Q12 ISORDIL GT TID ASA GT QD PREVACID GT BID : STEP DOWN UNIT [facility]: EGD WHEN MORE STABLE
--- NOTE | 2020-01-30 14:54 | Surgery Progress Note ---
Surgery Progress Note Subjective Procedure Performed Left femoral temporary hemodialysis catheter insertion Symptoms: improved, tolerating diet, difficulty voiding, passing flatus, BM Objective Last 24 Hour Vital Signs Date Time Temp Pulse Resp B/P (MAP) Pulse Ox O2 Delivery O2 Flow Rate FiO2 01/30/20 13:33 133/65 01/30/20 13:33 67 17 133/65 100 01/30/20 13:11 65 15 40 01/30/20 12:00 40 01/30/20 12:00 98.8 67 17 133/65 (87) 100 01/30/20 12:00 133/65 01/30/20 10:39 62 17 100 Mechanical Ventilator 40 60 14 01/30/20 08:43 70 138/63 01/30/20 08:43 138/63 01/30/20 08:43 70 138/63 01/30/20 08:40 81 25 40 01/30/20 08:00 40 01/30/20 08:00 Mechanical Ventilator Mechanical Ventilator 01/30/20 08:00 99.1 70 17 138/63 (88) 100 01/30/20 08:00 67 01/30/20 07:20 82 22 40 01/30/20 05:40 75 19 136/64 99 01/30/20 05:10 70 17 140/64 99 01/30/20 05:09 140/64 01/30/20 04:00 40 01/30/20 04:00 72 01/30/20 04:00 Mechanical Ventilator Mechanical Ventilator 01/30/20 04:00 98.2 70 21 138/64 (88) 97 01/30/20 03:20 72 18 40 01/30/20 00:08 135/60 01/30/20 00:00 Mechanical Ventilator Mechanical Ventilator 01/30/20 00:00 99.5 65 15 135/60 (85) 99 01/30/20 00:00 66 01/30/20 00:00 40 01/29/20 22:51 73 22 100 Mechanical Ventilator 65 70 23 65 01/29/20 22:00 69 21 135/65 100 01/29/20 20:22 65 139/60 01/29/20 20:00 73 01/29/20 20:00 40 01/29/20 20:00 99.3 72 21 131/60 (83) 95 01/29/20 20:00 Mechanical Ventilator Mechanical Ventilator 01/29/20 19:15 72 19 40 01/29/20 17:47 142/66 01/29/20 17:47 142/66 01/29/20 17:47 73 142/66 01/29/20 16:00 73 01/29/20 16:00 98.3 71 20 142/66 (91) 100 01/29/20 16:00 Mechanical Ventilator Mechanical Ventilator 01/29/20 16:00 40 01/29/20 15:11 75 22 40 I&O Intake and Output 01/29/20 01/30/20 19:00 07:00 Intake Total 630 ml 700 ml Output Total 400 ml 250 ml Balance 230 ml 450 ml Free Water 150 ml 150 ml IV Total 110 ml Tube Feeding 480 ml 440 ml Output Urine Total 400 ml 250 ml Dressing: saturated Cardiovascular: RSR Respiratory: decreased breath sounds Abdomen: non-tender, present bowel sounds Extremities: edema, no tenderness, no cyanosis Laboratory Tests Test 01/30/20 00:56 01/30/20 03:00 01/30/20 05:52 POC Whole Blood Glucose 95 MG/DL (74-106) 94 MG/DL (74-106) White Blood Count 6.2 K/UL (4.8-10.8) Red Blood Count 2.47 M/UL (4.20-5.40) L Hemoglobin 7.0 G/DL (12.0-16.0) L Hematocrit 21.0 % (37.0-47.0) L Mean Corpuscular Volume 85 FL (80-99) Mean Corpuscular Hemoglobin 28.2 PG (27.0-31.0) Mean Corpuscular Hemoglobin Concent 33.1 G/DL (32.0-36.0) Red Cell Distribution Width 14.3 % (11.6-14.8) Platelet Count 241 K/UL (150-450) Mean Platelet Volume 6.6 FL (6.5-10.1) Neutrophils (%) (Auto) % (45.0-75.0) Lymphocytes (%) (Auto) % (20.0-45.0) Monocytes (%) (Auto) % (1.0-10.0) Eosinophils (%) (Auto) % (0.0-3.0) Basophils (%) (Auto) % (0.0-2.0) Sodium Level 137 MMOL/L (136-145) Potassium Level 3.5 MMOL/L (3.5-5.1) Chloride Level 100 MMOL/L (98-107) Carbon Dioxide Level 26 MMOL/L (21-32) Anion Gap 11 mmol/L (5-15) Blood Urea Nitrogen 110 mg/dL (7-18) H Creatinine 4.0 MG/DL (0.55-1.30) H Estimat Glomerular Filtration Rate 12.0 mL/min (>60) Glucose Level 88 MG/DL (74-106) Calcium Level 7.9 MG/DL (8.5-10.1) L Phosphorus Level 5.2 MG/DL (2.5-4.9) H Magnesium Level 2.5 MG/DL (1.8-2.4) H Total Bilirubin 0.4 MG/DL (0.2-1.0) Direct Bilirubin 0.2 MG/DL (0.0-0.3) Aspartate Amino Transf (AST/SGOT) 27 U/L (15-37) Alanine Aminotransferase (ALT/SGPT) 11 U/L (12-78) L Alkaline Phosphatase 175 U/L (46-116) H Total Protein 6.5 G/DL (6.4-8.2) Albumin 1.8 G/DL (3.4-5.0) L Lipase 1440 U/L (73-393) H Plan Problems: (1) Dehydration (2) Acidosis (3) Depression (4) Pleural effusion (5) Respiratory failure (6) Schizophrenia (7) Hypoxia (8) UTI (urinary tract infection) (9) Pneumonia (10) NSTEMI (non-ST elevated myocardial infarction) (11) Tracheostomy in place (12) Feeding by G-tube (13) JAVIER (acute kidney injury) (14) Acute encephalopathy (15) Sacral decubitus ulcer, stage IV (16) Chronic respiratory failure (17) Ascites (18) Bacteremia (19) Hypernatremia (20) Proteinuria (21) Electrolyte imbalance (22) ACS (acute coronary syndrome) (23) Aortic dissection, thoracic (24) Respiratory failure, acute and chronic (25) JAVIER (acute kidney injury) (26) Abrasion of lip, initial encounter (27) COPD with exacerbation (28) Elevated alkaline phosphatase level (29) Renal failure (ARF), acute on chronic (30) HCAP (healthcare-associated pneumonia) (31) GT CLOGGED (32) Elevated lipase (33) Pancreatitis (34) Elevated troponin (35) Hypokalemia (36) Hyponatremia (37) Anemia (38) Renal failure (39) ARF (acute renal failure) (40) Pacemaker (41) Sepsis Assessment & Plan: leukocytosis anemia on HD renal insufficiency wounds addressed pancreatitis cont diet as tolerating trend labs lf'ts okay pt presented on admission with Tracheostomy ,GT and Multiple Pressure Injuries. Skin assessment of skin under tracheal collar without evidence of skin breakdown. Peristomal GT site excoriated.Moderate amt of dark red sanguineous exudate. Full Thickness Sacral Pressure Injury with undermined borders (L)9 cm x (W)12cm x (D)1.8cm,Undermining clockwise8-9 by 2.2cm @1o'clock,undermining clockwise 1-4 by 1.9 @ 9'oclock Scattered necrotic tissue within wound bed. Borders are loose and necrotic with marginal erythema to outer perimeter of wound. NO elevation in skin temp noted periwound. Wound is malodorous. Small amt Brown exudate noted. Resolving Pressure Injury L Ischium(L)1.5cm x (W)1.5cm. Base of wound is 80% pink epithelial with an area that is moist and pink. NO odor or exudate noted. Bilat foot-drop noted. L Heel is boggy with non-blanchable erythema(L)4cm x (W)4cm. R heel is boggy with non-Blanchable erythema(L)5cm x (W)6cm. Tx.Plan: Cleanse sacral wound with Dakin's 0.125% annie. Loosely pack with Dakin's moistened Kerlix(Attention to undermined borders). Apply Moisture Barrier Paste periwound. Cover with Optifoam drsg. Change Daily and PRN. Apply Cavilon Skin Barrier to R and L Hels. Cover each heel with Optifoam drsg. Change every 7 days and prn. Reposition at least every 2hours or as tolerated. Off-load heels with Pillow. APM/JENNIFER MAttress overlay DAILY ESTIMATED NEEDS: Needs based on Critical care, wound, renal dysfunction 56 kg abw 28-33 kcals/kg 0793-9124 total kcals W/ HD (1.5-2.0) g protein/kg 84-112 g total protein Fluid per MD mL/kg . total fluid mLs NUTRITION DIAGNOSIS: * Swallowing difficulty R/T dysphagia, respiratory status as evidenced by vent dep via trach, GT Dep. * Increase kcal and pro needs r/t wound healing, renal dysfunction as evidenced by admitted w/ large, advanced sacral wound, previously stage 4, pending eval, admitted w/ JAVIER, pending HD. CURRENT TF:NPO ENTERAL NUTRITION RECOMMENDATIONS: Nepro @ 40ml/hr x 24 hrs + Prosource 1pkt QD to provide 960ml, 1728kcal, 78g+11g prot, 698ml free water * As medically appropriate, initiate TF on Nepro, rec goal rate fo 40ml/hr x 24 hrs * Add Prosource 1pkt QD to better meet increased protein needs (additional 11g prot) * Water flush per MD/ HOB over 30 degrees ADDITIONAL RECOMMENDATIONS: * Per SNF in NOV 2019: HT=63"/ Rec daily calibrated bedscale wt * Monitor for continuity of HD: non-tunneled cath placement ordered * Monitor lytes and renal fxn for improvement (Na low, K and phos elevated) * Wound care: add Nephrovite x 1, ZnSO4 220mg QD x 10 days Reyanldo BID via PEG (mix w/ 2-4 oz water) * Monitor BG closely for hypoglycemia while NPO (h/o DM, on Nacl 3% to correct hyponatremia, consider accuchecks) (42) Hyponatremia Lane Saavedra Jan 30, 2020 14:54
--- NOTE | 2020-01-30 15:48 | Nephrology Progress Note ---
Assessment/Plan Problem List: (1) ARF (acute renal failure) (2) Pacemaker (3) Sepsis (4) Hyponatremia Assessment (1) JAVIER (acute kidney injury) (2) Renal failure (ARF), acute on chronic (3) Feeding by G-tube (4) Tracheostomy in place (5) Electrolyte imbalance, hyponatremia (6) Anemia, severe (7) Respiratory failure, acute and chronic (8) Elevated lipase, pancreatitis (9) Elevated troponin I (10) Sepsis Plan January 29: Patient due for dialysis today. Today's can panel reviewed. Continue to monitor renal parameters and dialysis as needed. January 28: Patient last dialyzed January 26. No labs drawn today. Will order dialysis tomorrow. Check chemistry panel tomorrow. Continue per consultants. January 27: Patient was dialyzed yesterday . Labs were reviewed. Electrolytes within normal limit. Blood pressure stable. January 26: When visited the patient earlier today the patient was on dialysis. Tolerating well. Labs reviewed. Blood pressure stable. January 25: Dialysis for tomorrow. Labs reviewed. Hemoglobin remains low. Will adjust blood pressure medication. Hydralazine added to the regimen January 24: Last dialyzed January 22. Labs reviewed. Status quo. Will dialyze as needed. Low hemoglobin noted. Transfusion per PMD decision. Epogen started. \January 23: Dialyzed yesterday. Today's labs reviewed. Continue to monitor renal parameters and arrange for dialysis as needed. Continue per PMD. January 22: Seen earlier during dialysis. Labs reviewed. Medication list reviewed. Continue current management. January 21: Labs reviewed. Medication list reviewed. Next hemodialysis tomorrow. Blood pressure medication adjusted. January 20: Dialyzed yesterday. Labs reviewed. Continue per current management. Dialysis as needed. Add Norvasc to blood pressure regimen January 19: Due for dialysis today. Labs reviewed. Continue her current management. Continue to monitor renal parameters and electrolytes. January 18: Dialyzed yesterday. Labs reviewed. Renal parameters electrolytes much improved. Dialysis again tomorrow. Continue rest. January 17: Dialyzed this morning. Labs reviewed. Renal parameters and electrolyte abnormalities improved. Discussed with RN. Continue per consultants. January 16: Dialyzed yesterday. Labs improved. Next dialysis tomorrow. Continue per consultants. January 15: Patient to have dialysis catheter. Emergency dialysis for correction of uremia and electrolyte imbalances Antibiotics Transfusion Continue to monitor renal parameters Per orders Discussed with RN Subjective ROS Limited/Unobtainable: Yes Objective Objective Last 24 Hour Vital Signs Date Time Temp Pulse Resp B/P (MAP) Pulse Ox O2 Delivery O2 Flow Rate FiO2 01/30/20 13:33 133/65 01/30/20 13:33 67 17 133/65 100 01/30/20 13:11 65 15 40 01/30/20 12:00 40 01/30/20 12:00 98.8 67 17 133/65 (87) 100 01/30/20 12:00 133/65 01/30/20 10:39 62 17 100 Mechanical Ventilator 40 60 14 01/30/20 08:43 70 138/63 01/30/20 08:43 138/63 01/30/20 08:43 70 138/63 01/30/20 08:40 81 25 40 01/30/20 08:00 40 01/30/20 08:00 Mechanical Ventilator Mechanical Ventilator 01/30/20 08:00 99.1 70 17 138/63 (88) 100 01/30/20 08:00 67 01/30/20 07:20 82 22 40 01/30/20 05:40 75 19 136/64 99 01/30/20 05:10 70 17 140/64 99 01/30/20 05:09 140/64 01/30/20 04:00 40 01/30/20 04:00 72 01/30/20 04:00 Mechanical Ventilator Mechanical Ventilator 01/30/20 04:00 98.2 70 21 138/64 (88) 97 01/30/20 03:20 72 18 40 01/30/20 00:08 135/60 01/30/20 00:00 Mechanical Ventilator Mechanical Ventilator 01/30/20 00:00 99.5 65 15 135/60 (85) 99 01/30/20 00:00 66 01/30/20 00:00 40 01/29/20 22:51 73 22 100 Mechanical Ventilator 65 70 23 65 01/29/20 22:00 69 21 135/65 100 01/29/20 20:22 65 139/60 01/29/20 20:00 73 01/29/20 20:00 40 01/29/20 20:00 99.3 72 21 131/60 (83) 95 01/29/20 20:00 Mechanical Ventilator Mechanical Ventilator 01/29/20 19:15 72 19 40 01/29/20 17:47 142/66 01/29/20 17:47 142/66 01/29/20 17:47 73 142/66 01/29/20 16:00 73 01/29/20 16:00 98.3 71 20 142/66 (91) 100 01/29/20 16:00 Mechanical Ventilator Mechanical Ventilator 01/29/20 16:00 40 Intake and Output 01/29/20 01/30/20 19:00 07:00 Intake Total 630 ml 700 ml Output Total 400 ml 250 ml Balance 230 ml 450 ml Free Water 150 ml 150 ml IV Total 110 ml Tube Feeding 480 ml 440 ml Output Urine Total 400 ml 250 ml Laboratory Tests 01/30/20 00:56: POC Whole Blood Glucose 95 01/30/20 03:00: White Blood Count 6.2, Red Blood Count 2.47L, Hemoglobin 7.0L, Hematocrit 21.0L, Mean Corpuscular Volume 85, Mean Corpuscular Hemoglobin 28.2, Mean Corpuscular Hemoglobin Concent 33.1, Red Cell Distribution Width 14.3, Platelet Count 241, Mean Platelet Volume 6.6, Neutrophils (%) (Auto) , Lymphocytes (%) (Auto) , Monocytes (%) (Auto) , Eosinophils (%) (Auto) , Basophils (%) (Auto) , Sodium Level 137, Potassium Level 3.5, Chloride Level 100, Carbon Dioxide Level 26, Anion Gap 11, Blood Urea Nitrogen 110H, Creatinine 4.0H, Estimat Glomerular Filtration Rate 12.0, Glucose Level 88, Calcium Level 7.9L, Phosphorus Level 5.2H, Magnesium Level 2.5H, Total Bilirubin 0.4, Direct Bilirubin 0.2, Aspartate Amino Transf (AST/SGOT) 27, Alanine Aminotransferase (ALT/SGPT) 11L, Alkaline Phosphatase 175H, Total Protein 6.5, Albumin 1.8L, Lipase 1440H 01/30/20 05:52: POC Whole Blood Glucose 94 Height (Feet): 5 Height (Inches): 6.00 Weight (Pounds): 150 General Appearance: no apparent distress, lethargic EENT: other - Trach to vent Cardiovascular: normal rate Respiratory/Chest: decreased breath sounds Abdomen: distended Johnny Houston MD Jan 30, 2020 15:48
[2020-01-30 16:00] VITALS: BP 140/67
--- NOTE | 2020-01-30 17:33 | General Progress Note ---
Subjective Constitutional: Reports: no symptoms HEENT: Reports: no symptoms Cardiovascular: Reports: no symptoms Respiratory: Reports: no symptoms Gastrointestinal/Abdominal: Reports: no symptoms Neurologic/Psychiatric: Reports: tremors, other - Mild low amplitude tremor in both arms Endocrine: Reports: no symptoms Allergies: Coded Allergies: No Known Allergies (Unverified , 10/10/17) Objective Last 24 Hour Vital Signs Date Time Temp Pulse Resp B/P (MAP) Pulse Ox O2 Delivery O2 Flow Rate FiO2 01/30/20 16:00 Mechanical Ventilator Mechanical Ventilator 01/30/20 16:00 71 01/30/20 15:10 73 24 40 01/30/20 14:03 67 17 133/65 100 01/30/20 13:33 133/65 01/30/20 13:33 67 17 133/65 100 01/30/20 13:11 65 15 40 01/30/20 12:00 40 01/30/20 12:00 98.8 67 17 133/65 (87) 100 01/30/20 12:00 133/65 01/30/20 12:00 Mechanical Ventilator Mechanical Ventilator 01/30/20 12:00 75 01/30/20 10:39 62 17 100 Mechanical Ventilator 40 60 14 01/30/20 08:43 70 138/63 01/30/20 08:43 138/63 01/30/20 08:43 70 138/63 01/30/20 08:40 81 25 40 01/30/20 08:00 40 01/30/20 08:00 Mechanical Ventilator Mechanical Ventilator 01/30/20 08:00 99.1 70 17 138/63 (88) 100 01/30/20 08:00 67 01/30/20 07:20 82 22 40 01/30/20 05:40 75 19 136/64 99 01/30/20 05:10 70 17 140/64 99 01/30/20 05:09 140/64 01/30/20 04:00 40 01/30/20 04:00 72 01/30/20 04:00 Mechanical Ventilator Mechanical Ventilator 01/30/20 04:00 98.2 70 21 138/64 (88) 97 01/30/20 03:20 72 18 40 01/30/20 00:08 135/60 01/30/20 00:00 Mechanical Ventilator Mechanical Ventilator 01/30/20 00:00 99.5 65 15 135/60 (85) 99 01/30/20 00:00 66 01/30/20 00:00 40 01/29/20 22:51 73 22 100 Mechanical Ventilator 65 70 23 65 01/29/20 22:00 69 21 135/65 100 01/29/20 20:22 65 139/60 01/29/20 20:00 73 01/29/20 20:00 40 01/29/20 20:00 99.3 72 21 131/60 (83) 95 01/29/20 20:00 Mechanical Ventilator Mechanical Ventilator 01/29/20 19:15 72 19 40 01/29/20 17:47 142/66 01/29/20 17:47 142/66 01/29/20 17:47 73 142/66 Intake and Output 01/29/20 01/30/20 19:00 07:00 Intake Total 630 ml 700 ml Output Total 400 ml 250 ml Balance 230 ml 450 ml Free Water 150 ml 150 ml IV Total 110 ml Tube Feeding 480 ml 440 ml Output Urine Total 400 ml 250 ml Laboratory Tests 01/30/20 00:56: POC Whole Blood Glucose 95 01/30/20 03:00: White Blood Count 6.2, Red Blood Count 2.47L, Hemoglobin 7.0L, Hematocrit 21.0L, Mean Corpuscular Volume 85, Mean Corpuscular Hemoglobin 28.2, Mean Corpuscular Hemoglobin Concent 33.1, Red Cell Distribution Width 14.3, Platelet Count 241, Mean Platelet Volume 6.6, Neutrophils (%) (Auto) , Lymphocytes (%) (Auto) , Monocytes (%) (Auto) , Eosinophils (%) (Auto) , Basophils (%) (Auto) , Sodium Level 137, Potassium Level 3.5, Chloride Level 100, Carbon Dioxide Level 26, Anion Gap 11, Blood Urea Nitrogen 110H, Creatinine 4.0H, Estimat Glomerular Filtration Rate 12.0, Glucose Level 88, Calcium Level 7.9L, Phosphorus Level 5.2H, Magnesium Level 2.5H, Total Bilirubin 0.4, Direct Bilirubin 0.2, Aspartate Amino Transf (AST/SGOT) 27, Alanine Aminotransferase (ALT/SGPT) 11L, Alkaline Phosphatase 175H, Total Protein 6.5, Albumin 1.8L, Lipase 1440H 01/30/20 05:52: POC Whole Blood Glucose 94 Height (Feet): 5 Height (Inches): 6.00 Weight (Pounds): 150 General Appearance: WD/WN, no apparent distress, lethargic EENT: normal ENT inspection Neck: normal alignment, supple Cardiovascular: normal rate, regular rhythm, no gallop/murmur, no JVD Respiratory/Chest: lungs clear, normal breath sounds, no respiratory distress, no accessory muscle use Abdomen: normal bowel sounds, non tender, soft, no organomegaly, no mass Extremities: non-tender Neurologic: alert, responsive, aphasia Skin: warm/dry Assessment/Plan Status Narrative Patient is awake alert afebrile hemodynamically stable with eye contact but there is no verbal response she smiles her upper extremity tremor which is low amplitude is intermittent now she is on benzodiazepine is still on meropenem and tobramycin febrile without leukocytosis and without tachycardia but laboratory tests will be done in a.m. Lucas Vera MD, MD Jan 30, 2020 17:33
--- NOTE | 2020-01-30 19:04 | NUR ---
RESPIRATORY NOTE: Received pt on AC VC 14, 500VT, 40%, PEEP +5. Pt is trach-dependent w/ a cuffed, Shiley 7 XLT tube. Pt disoriented. B/S sara. rhonchi, sxn small amounts of thick/thin, white to pale-yellow secretions. Vent plugged into red outlet, ambubag at bedside. Pt in no apparent distress at this time. Will continue plan of care.
--- NOTE | 2020-01-30 19:05 | NUR ---
NURSE HAND-OFF REPORT: Important Events on Shift:Received PRBC today Patient Status: Stable Diet: Gtube Nepro @40ml/hr Pending Orders: NA Pending Results/Labs:NA Pending notification:NA Latest Vital Signs: Temperature 98.0 , Pulse 82 , B/P 133 /65 , Respiratory Rate 21 , O2 SAT 100 , Mechanical Ventilator, O2 Flow Rate . Vital Sign Comment: Stable EKG Rhythm: Sinus Rhythm Rhythm change?: N MD Notified?: Gabriel Willams MD Response: Order Received& Read Back Latest Chavarria Fall Score: 70 Fall Risk: High Risk Safety Measures: Call light Within Reach, Bed Alarm Zone 1, Side Rails Side Rails x3, Bed position Low and Locked. Fall Precautions: Yellow Socks Report given to ERASMO Mancilla.
--- NOTE | 2020-01-30 19:07 | NUR ---
NURSE NOTES: Report received from ERASMO Ang. Upon assessment pt is awake, follows commands, PERRLA. 5-lead EKG shows SR at 75BPM. Saturating 95% on prescribed vent settings of AC 14 / Vt 500 / 40% fiO2. Running Nepro at 40 mL with 0 residual noted. Made aware of HD and PRBC today. No bleeding noted. Constant suctioning needed for patient in oral area. Bed kept in lowest and locked position. Bed alarm on. Side rails up x3. Will monitoring.
[2020-01-30 20:00] VITALS: BP 144/71
[2020-01-30] MEDS: Dyna-Hex 2% Top Sol 2oz TOPIC SCH (20:39)
--- NOTE | 2020-01-30 23:36 | Cardiology Progress Note ---
Subjective DATE OF SERVICE: Jan 30, 2020 Remains in atrial fibrillation; rates controlled. Occasional PVC's - non- sustained BP range stable Full vent support via trach s/p left thorocentesis 01/22/20 Low hemoglobin; on epogen Objective Last 24 Hour Vital Signs Date Time Temp Pulse Resp B/P (MAP) Pulse Ox O2 Delivery O2 Flow Rate FiO2 01/30/20 23:12 152/78 01/30/20 22:45 77 22 100 Mechanical Ventilator 40 75 19 40 01/30/20 20:40 76 144/71 01/30/20 20:00 98.2 77 16 144/71 (95) 100 01/30/20 20:00 Mechanical Ventilator Mechanical Ventilator 01/30/20 20:00 40 01/30/20 19:43 74 01/30/20 19:02 82 21 40 01/30/20 18:23 133/65 01/30/20 18:23 133/65 01/30/20 18:23 71 133/65 01/30/20 16:00 Mechanical Ventilator Mechanical Ventilator 01/30/20 16:00 40 01/30/20 16:00 98.0 73 19 140/67 (91) 100 01/30/20 16:00 71 01/30/20 15:10 73 24 40 01/30/20 14:03 67 17 133/65 100 01/30/20 13:33 133/65 01/30/20 13:33 67 17 133/65 100 01/30/20 13:11 65 15 40 01/30/20 12:00 40 01/30/20 12:00 98.8 67 17 133/65 (87) 100 01/30/20 12:00 133/65 01/30/20 12:00 Mechanical Ventilator Mechanical Ventilator 01/30/20 12:00 75 01/30/20 10:39 62 17 100 Mechanical Ventilator 40 60 14 01/30/20 08:43 70 138/63 01/30/20 08:43 138/63 01/30/20 08:43 70 138/63 01/30/20 08:40 81 25 40 01/30/20 08:00 40 01/30/20 08:00 Mechanical Ventilator Mechanical Ventilator 01/30/20 08:00 99.1 70 17 138/63 (88) 100 01/30/20 08:00 67 12/17/20 07:20 82 22 40 01/30/20 05:40 75 19 136/64 99 01/30/20 05:10 70 17 140/64 99 01/30/20 05:09 140/64 01/30/20 04:00 40 01/30/20 04:00 72 01/30/20 04:00 Mechanical Ventilator Mechanical Ventilator 01/30/20 04:00 98.2 70 21 138/64 (88) 97 01/30/20 03:20 72 18 40 01/30/20 00:08 135/60 01/30/20 00:00 Mechanical Ventilator Mechanical Ventilator 01/30/20 00:00 99.5 65 15 135/60 (85) 99 01/30/20 00:00 66 01/30/20 00:00 40 ROS: unchanged for 01/17/20 HEENT: Mechanically Ventilated, Thick Trach secretions RHYTHM: Afib LUNGS: bilateral rhonchi, trach site clean CARDIAC: normal S1 and S2, irregularly irregular ABDOMEN: normal bowel sounds, non tender, soft, G-Tube intact EXTREMITIES: normal inspection, trace edema Laboratory Tests Test 01/30/20 00:56 01/30/20 03:00 01/30/20 05:52 POC Whole Blood Glucose 95 MG/DL (74-106) 94 MG/DL (74-106) White Blood Count 6.2 K/UL (4.8-10.8) Red Blood Count 2.47 M/UL (4.20-5.40) L Hemoglobin 7.0 G/DL (12.0-16.0) L Hematocrit 21.0 % (37.0-47.0) L Mean Corpuscular Volume 85 FL (80-99) Mean Corpuscular Hemoglobin 28.2 PG (27.0-31.0) Mean Corpuscular Hemoglobin Concent 33.1 G/DL (32.0-36.0) Red Cell Distribution Width 14.3 % (11.6-14.8) Platelet Count 241 K/UL (150-450) Mean Platelet Volume 6.6 FL (6.5-10.1) Neutrophils (%) (Auto) % (45.0-75.0) Lymphocytes (%) (Auto) % (20.0-45.0) Monocytes (%) (Auto) % (1.0-10.0) Eosinophils (%) (Auto) % (0.0-3.0) Basophils (%) (Auto) % (0.0-2.0) Sodium Level 137 MMOL/L (136-145) Potassium Level 3.5 MMOL/L (3.5-5.1) Chloride Level 100 MMOL/L (98-107) Carbon Dioxide Level 26 MMOL/L (21-32) Anion Gap 11 mmol/L (5-15) Blood Urea Nitrogen 110 mg/dL (7-18) H Creatinine 4.0 MG/DL (0.55-1.30) H Estimat Glomerular Filtration Rate 12.0 mL/min (>60) Glucose Level 88 MG/DL (74-106) Calcium Level 7.9 MG/DL (8.5-10.1) L Phosphorus Level 5.2 MG/DL (2.5-4.9) H Magnesium Level 2.5 MG/DL (1.8-2.4) H Total Bilirubin 0.4 MG/DL (0.2-1.0) Direct Bilirubin 0.2 MG/DL (0.0-0.3) Aspartate Amino Transf (AST/SGOT) 27 U/L (15-37) Alanine Aminotransferase (ALT/SGPT) 11 U/L (12-78) L Alkaline Phosphatase 175 U/L (46-116) H Total Protein 6.5 G/DL (6.4-8.2) Albumin 1.8 G/DL (3.4-5.0) L Lipase 1440 U/L (73-393) H Assessment/Plan Assessment/Plan Chronic respiratory failure with trach Severe sepsis PAFib with rapid ventric response. Ischemic cardiomyopathy - hx CABG and s/p NSTEMI in Dec 2019. Conduction system disease of the heart Hx of permanent pacemaker explant Acute on chronic systolic and diastolic CHF Pleural effusion Anemia Hypertension/HHD with labile BP. Avoid beta flori therapy based on risk of bradycardia. Anti-failure and anti-anginal regimen with titration Vent support Abx per ID Continuous cardiac monitoring Anti-HTN regimen being titrated. Transfuse for further drop in hemoglobin Deni Willams MD Jan 30, 2020 23:36
--- NOTE | 2020-01-30 23:37 | NUR ---
NURSE NOTES: Observed pt has not had a BM in 4+ days. Will request stool softener from MD. No cardiopulmonary distress noted.
[2020-01-31] VITALS: BP 130/57
[2020-01-31 04:00] VITALS: BP 143/73
[2020-01-31] MEDS: HydrALAZINE 25mg tab GT SCH ×4 (05:17→23:41)
[2020-01-31 05:45] LABS: BASOPHILS % (AUTO) 0.7 % (0.0-2.0); EOSINOPHILS % (AUTO) 0.8 % (0.0-3.0); HEMATOCRIT 25.4 % (37.0-47.0); HEMOGLOBIN 8.6 G/DL (12.0-16.0); LYMPHOCYTES % (AUTO) 19.1 % (20.0-45.0); MEAN CORPUSCULAR VOLUME 85 FL (80-99); MONOCYTES % (AUTO) 7.1 % (1.0-10.0); NEUTROPHILS % (AUTO) 72.3 % (45.0-75.0); PLATELET COUNT 291 K/UL (150-450); RED BLOOD COUNT 2.97 M/UL (4.20-5.40); RED CELL DISTRIBUTION WIDTH 14.4 % (11.6-14.8); WHITE BLOOD COUNT 6.9 K/UL (4.8-10.8)
--- NOTE | 2020-01-31 06:53 | NUR ---
NURSE HAND-OFF REPORT: Important Events on Shift: No changes Patient Status: Stable Diet: Nepro Pending Orders: N Pending Results/Labs: Pending MD notification: Latest Vital Signs: Temperature 97.9 , Pulse 73 , B/P 146 /72 , Respiratory Rate 21 , O2 SAT 100 , Mechanical Ventilator, O2 Flow Rate . Vital Sign Comment: WNL EKG Rhythm: Sinus Rhythm Rhythm change?: N MD Notified?: Gabriel Willams MD Response: Order Received& Read Back Latest Chavarria Fall Score: 70 Fall Risk: High Risk Safety Measures: Call light Within Reach, Bed Alarm Zone 1, Side Rails Side Rails x3, Bed position Low and Locked. Fall Precautions: Yellow Socks Report given to ERASMO Sen.
--- NOTE | 2020-01-31 07:20 | NUR ---
NURSE NOTES: Received report from ERASMO Mancilla. Patient is resting in bed, in stable condition. No s/sx of SOB, breathing is even and unlabored, patient on vent with vent settings as ordered. Patient is nonverbal, observed no presence of pain or discomfort at this time. Bed is in lowest position, brakes engaged. Call light is kept within easy reach. Will continue to monitor patient.
[2020-01-31 08:00] VITALS: BP 146/63
--- NOTE | 2020-01-31 08:02 | Hematology/Onc Progress Note ---
Assessment/Plan Assessment/Plan Assessment and Recs # Leukocytosis, now with pna v other process --> Cxr: : Large left pleural effusion, Bilateral interstitial and airspace infiltrates versus edema --> wbc 16-->26->30-->10->8 --> ABX zosyn-->angelo/vanc-->angelo/tobra --> ID recs are noted --> smear has been reviewed # Anemia of chronic disease due to underlying chronic medical issues, multifactorial --> Anemia workup has been reviewed, cw acd --> No evidence of hemolysis is noted, peripheral smear has been reviewed. --> Hgb goal >7. Transfuse prn. --> Epogen required, to continue --> Medications have been reviewed --> low threshold for gi evaluation in case has occult + --> hgb 7.1-->7.8-->>>5.9-->7.3-->7-->7.2-->7.9-->8.6 --> 1 unit prbc1, 2 units 01/15 --> gi eval as needed # Coagulopathy with inr 1.5 --> consider vit k/ffp as needed preprocedure --> labs noted # JAVIER initially >2 --> on ivfs --> per renal # Elevated d-dimer --> venous duplex ordered-->reviewed, is neg --> in prior neg # Dysphagia s/p peg --> as per gi # Thoracic aortic dissection --> s/p repair early 2017 # Chronic Resp failure -> s/p trach/vent # Psychiatric history on ativan/haldol # [place] resident # Dvt ppx --> scds The timing of this note does not necessarily reflect the time of the patient was seen. Greatly appreciate consultation. Subjective Allergies: Coded Allergies: No Known Allergies (Unverified , 10/10/17) All Systems: reviewed and negative except above Subjective 01/16 left femoral arden in place, on vent, icu, hgb better 01/18 labs are noted, wbc 30, hgb 7, may require prbc today 01/27 is off amio, on epoogen, hgb reviewed, 7.2, transfuse if unstable 01/28 pain meds given, some foaming around mouth, no bleeding 01/29 hd was done yesterday, no bleedig, cbc pending, asa given 01/30 labs are noted, no bleeding, labs reviewed, pending meds Objective Objective Current Medications Medications (Trade) Dose Ordered Sig/Penny Route PRN Reason Start Time Stop Time Status Last Admin Dose Admin Acetaminophen (Tylenol) 500 mg Q6H PRN GT FEVER 01/21/20 20:45 02/20/20 20:44 01/29/20 02:01 Acetaminophen/ Hydrocodone Bitart ([place] 5/325) 1 tab Q6H PRN GT Moderate Breakthru Pain (5-7) 01/31/20 07:45 02/07/20 07:44 Amlodipine Besylate (Norvasc) 5 mg BID GT 01/22/20 18:00 02/20/20 15:44 01/30/20 18:23 Aspirin (ASA) 81 mg DAILY GT 01/20/20 09:00 03/05/20 08:59 01/30/20 08:44 Atorvastatin Calcium (Lipitor) 10 mg BEDTIME GT 01/17/20 21:00 04/16/20 20:59 01/30/20 20:39 Chlorhexidine Gluconate (Ling-Hex 2%) 1 applic DAILY@1999 TOPIC 01/17/20 20:00 04/16/20 19:59 01/30/20 20:39 Dextrose (Dextrose 50%) 25 ml Q30M PRN IV Hypoglycemia 01/15/20 22:15 04/14/20 22:14 Dextrose (Dextrose 50%) 50 ml Q30M PRN IV Hypoglycemia 01/15/20 22:15 04/14/20 22:14 01/22/20 17:54 Docusate Sodium (Colace) 200 mg BIDPRN PRN GT Constipation 01/31/20 07:45 03/01/20 07:44 Epoetin Gelacio (Epoetin Gelacio(ESRD on dialysis)) 10,000 unit MON-MON-MON SUBQ 01/27/20 21:00 04/26/20 20:59 01/29/20 20:27 Hydralazine HCl (Apresoline) 25 mg Q6HR GT 01/26/20 18:15 04/25/20 18:14 01/31/20 05:17 Isosorbide Dinitrate (Isordil) 20 mg TID GT 01/25/20 09:00 02/19/20 08:59 01/30/20 18:23 Lansoprazole (Prevacid) 30 mg BID GT 01/19/20 18:00 02/18/20 17:59 01/30/20 18:22 Meropenem 500 mg/ Sodium Chloride 55 ml @ 110 mls/hr Q12HR IVPB 01/27/20 09:00 02/01/20 08:59 01/30/20 20:42 Metoclopramide HCl (Reglan) 5 mg Q6H PRN IVP Nausea & Vomiting 01/15/20 22:15 02/14/20 22:14 Metoprolol Tartrate (Lopressor) 25 mg Q12HR ORAL 01/27/20 21:00 04/22/20 20:59 01/30/20 20:40 Sodium Hypochlorite (Dakin's Quarter Strength) 1 applic DAILY TOPIC 01/30/20 09:00 02/29/20 08:59 01/30/20 09:00 Tobramycin Sulfate (Nebcin) 300 mg Q12HRT INH 01/23/20 22:00 01/31/20 23:59 01/30/20 22:40 Zinc Oxide (Zinc Oxide) 1 applic TIDPRN PRN TOPIC digoenes GT 01/16/20 13:15 04/15/20 13:14 01/16/20 14:55 Last 24 Hour Vital Signs Date Time Temp Pulse Resp B/P (MAP) Pulse Ox O2 Delivery O2 Flow Rate FiO2 01/31/20 05:17 146/72 01/31/20 04:00 40 01/31/20 04:00 97.9 73 21 143/73 (96) 100 01/31/20 04:00 Mechanical Ventilator Mechanical Ventilator 01/31/20 03:21 77 01/31/20 03:10 76 21 40 01/31/20 00:00 40 01/31/20 00:00 Mechanical Ventilator Mechanical Ventilator 01/31/20 00:00 98.0 66 15 130/57 (81) 100 01/30/20 23:54 63 01/30/20 23:12 152/78 01/30/20 22:45 77 22 100 Mechanical Ventilator 40 75 19 40 01/30/20 20:40 76 144/71 01/30/20 20:00 98.2 77 16 144/71 (95) 100 01/30/20 20:00 Mechanical Ventilator Mechanical Ventilator 01/30/20 20:00 40 01/30/20 19:43 74 01/30/20 19:02 82 21 40 01/30/20 18:23 133/65 01/30/20 18:23 133/65 01/30/20 18:23 71 133/65 01/30/20 16:00 Mechanical Ventilator Mechanical Ventilator 01/30/20 16:00 40 01/30/20 16:00 98.0 73 19 140/67 (91) 100 01/30/20 16:00 71 01/30/20 15:10 73 24 40 01/30/20 14:03 67 17 133/65 100 01/30/20 13:33 133/65 01/30/20 13:33 67 17 133/65 100 01/30/20 13:11 65 15 40 01/30/20 12:00 40 01/30/20 12:00 98.8 67 17 133/65 (87) 100 01/30/20 12:00 133/65 01/30/20 12:00 Mechanical Ventilator Mechanical Ventilator 01/30/20 12:00 75 01/30/20 10:39 62 17 100 Mechanical Ventilator 40 60 14 01/30/20 08:43 70 138/63 01/30/20 08:43 138/63 01/30/20 08:43 70 138/63 01/30/20 08:40 81 25 40 01/30/20 08:00 40 01/30/20 08:00 Mechanical Ventilator Mechanical Ventilator 01/30/20 08:00 99.1 70 17 138/63 (88) 100 01/30/20 08:00 67 01/30/20 07:20 82 22 40 01/30/20 05:40 75 19 136/64 99 01/30/20 05:10 70 17 140/64 99 01/30/20 05:09 140/64 01/30/20 04:00 40 01/30/20 04:00 72 01/30/20 04:00 Mechanical Ventilator Mechanical Ventilator 01/30/20 04:00 98.2 70 21 138/64 (88) 97 01/30/20 03:20 72 18 40 01/30/20 00:08 135/60 01/30/20 00:00 Mechanical Ventilator Mechanical Ventilator 01/30/20 00:00 99.5 65 15 135/60 (85) 99 01/30/20 00:00 66 01/30/20 00:00 40 01/29/20 22:51 73 22 100 Mechanical Ventilator 65 70 23 65 01/29/20 22:00 69 21 135/65 100 01/29/20 20:22 65 139/60 01/29/20 20:00 73 01/29/20 20:00 40 01/29/20 20:00 99.3 72 21 131/60 (83) 95 01/29/20 20:00 Mechanical Ventilator Mechanical Ventilator 01/29/20 19:15 72 19 40 01/29/20 17:47 142/66 01/29/20 17:47 142/66 01/29/20 17:47 73 142/66 01/29/20 16:00 73 01/29/20 16:00 98.3 71 20 142/66 (91) 100 01/29/20 16:00 Mechanical Ventilator Mechanical Ventilator 01/29/20 16:00 40 01/29/20 15:11 75 22 40 01/29/20 14:28 73 20 142/66 100 01/29/20 13:58 63 19 139/70 100 01/29/20 12:37 139/70 01/29/20 12:36 139/70 01/29/20 12:00 99.0 74 19 139/70 (93) 100 01/29/20 12:00 Mechanical Ventilator Mechanical Ventilator 01/29/20 12:00 63 01/29/20 12:00 40 01/29/20 11:28 78 24 100 Mechanical Ventilator 40 67 16 40 01/29/20 08:27 69 135/62 01/29/20 08:26 69 135/62 01/29/20 08:26 135/62 Intake and Output 01/30/20 01/31/20 19:00 07:00 Intake Total 210 ml 400 ml Output Total 2000 ml 200 ml Balance -1790 ml 200 ml Free Water 60 ml IV Total 110 ml Tube Feeding 40 ml 400 ml Output Urine Total 200 ml Hemodialysis UF 2000 ml # Bowel Movements 2 3 Labs Test 01/28/20 11:28 01/28/20 19:38 01/29/20 00:01 01/29/20 06:08 POC Whole Blood Glucose 104 MG/DL (74-106) 104 MG/DL (74-106) 96 MG/DL (74-106) 86 MG/DL (74-106) Test 01/30/20 00:56 01/30/20 03:00 01/30/20 05:52 01/31/20 00:25 POC Whole Blood Glucose 95 MG/DL (74-106) 94 MG/DL (74-106) 95 MG/DL (74-106) White Blood Count 6.2 K/UL (4.8-10.8) Red Blood Count 2.47 M/UL (4.20-5.40) Hemoglobin 7.0 G/DL (12.0-16.0) Hematocrit 21.0 % (37.0-47.0) Mean Corpuscular Volume 85 FL (80-99) Mean Corpuscular Hemoglobin 28.2 PG (27.0-31.0) Mean Corpuscular Hemoglobin Concent 33.1 G/DL (32.0-36.0) Red Cell Distribution Width 14.3 % (11.6-14.8) Platelet Count 241 K/UL (150-450) Mean Platelet Volume 6.6 FL (6.5-10.1) Neutrophils (%) (Auto) % (45.0-75.0) Lymphocytes (%) (Auto) % (20.0-45.0) Monocytes (%) (Auto) % (1.0-10.0) Eosinophils (%) (Auto) % (0.0-3.0) Basophils (%) (Auto) % (0.0-2.0) Sodium Level 137 MMOL/L (136-145) Potassium Level 3.5 MMOL/L (3.5-5.1) Chloride Level 100 MMOL/L (98-107) Carbon Dioxide Level 26 MMOL/L (21-32) Anion Gap 11 mmol/L (5-15) Blood Urea Nitrogen 110 mg/dL (7-18) Creatinine 4.0 MG/DL (0.55-1.30) Estimat Glomerular Filtration Rate 12.0 mL/min (>60) Glucose Level 88 MG/DL (74-106) Calcium Level 7.9 MG/DL (8.5-10.1) Phosphorus Level 5.2 MG/DL (2.5-4.9) Magnesium Level 2.5 MG/DL (1.8-2.4) Total Bilirubin 0.4 MG/DL (0.2-1.0) Direct Bilirubin 0.2 MG/DL (0.0-0.3) Aspartate Amino Transf (AST/SGOT) 27 U/L (15-37) Alanine Aminotransferase (ALT/SGPT) 11 U/L (12-78) Alkaline Phosphatase 175 U/L (46-116) Total Protein 6.5 G/DL (6.4-8.2) Albumin 1.8 G/DL (3.4-5.0) Lipase 1440 U/L (73-393) Test 01/31/20 03:00 White Blood Count 6.9 K/UL (4.8-10.8) Red Blood Count 2.97 M/UL (4.20-5.40) Hemoglobin 8.6 G/DL (12.0-16.0) Hematocrit 25.4 % (37.0-47.0) Mean Corpuscular Volume 85 FL (80-99) Mean Corpuscular Hemoglobin 28.8 PG (27.0-31.0) Mean Corpuscular Hemoglobin Concent 33.7 G/DL (32.0-36.0) Red Cell Distribution Width 14.4 % (11.6-14.8) Platelet Count 291 K/UL (150-450) Mean Platelet Volume 6.7 FL (6.5-10.1) Neutrophils (%) (Auto) 72.3 % (45.0-75.0) Lymphocytes (%) (Auto) 19.1 % (20.0-45.0) Monocytes (%) (Auto) 7.1 % (1.0-10.0) Eosinophils (%) (Auto) 0.8 % (0.0-3.0) Basophils (%) (Auto) 0.7 % (0.0-2.0) Height (Feet): 5 Height (Inches): 6.00 Weight (Pounds): 150 Objective Physical Exam: Vitals: reviewed General: NAD HEENT: nc, at Neck: supple ++trach/vent Chest: clear breath sounds bilaterally Cardiovascular: RRR, no s3, s4 Abdomen: soft, nontender, nd +gtube Extremities: no cce, normal range of motion Neuro: alert Kleynberg,Evan L. MD Jan 31, 2020 08:02
--- NOTE | 2020-01-31 08:11 | Infectious Diseases Prog Note ---
Assessment/Plan 49yo F with: AF Sepsis Leukocytosis Hypoxia on vent Pneumonia c/b L pleural effusion (recurrent, prior determined to be transudative) - s/p thora 01/21, 1050cc removed Volume overload, BNP >35,0000, likely 2/2 progressive CKD --> ESRD ?Pancreatitis, Lipase >2000 Acute anemia to 5s CONS bacteremia, ?contaminant Aflutter w/ RVR 01/13 BCx 2/2 +S. epi COVID PCR neg Flu neg CXR: Large left pleural effusion. Bilateral interstitial and airspace infiltrates versus edema MRSA nares neg 01/16 BCx NTD 01/17 BCx /2 +Staph auricularis (skin colonizer) 01/18 Resp cx +MDR CRE PsA (S-gent, I-colistin, R-polyB) 01/18 C.dif neg 01/18 CXR: Similar opacification of the left hemithorax likely representing combination of pleural effusion with atelectasis versus pneumonia/edema. Decreased but persistent hazy opacity throughout the right lung may represent edema versus infectious/inflammatory process. 01/20 BCx NTD 01/21 L thora 1050 cc removed, cx NTD 01/25 Wound cx from Gtube site +CRE Kleb pna (arnett-R) and MDR PsA (colonizers) 01/26 CT A/P: Limited exam, due to severe diffuse anasarca. Ascites. Bilateral pleural effusions. Basilar pulmonary atelectatic changes and consolidation. Gastrostomy. Atrophic left kidney with a nephroureteral stents again demonstrated. Possible retrococcygeal decubitus changes. Correlate with clinical findings, consider MRI if there is concern for sacral osteomyelitis. Right hip intertrochanteric fracture, also previously demonstrated. Left femoral dialysis catheter. Nonspecific right lobe liver lesion is unchanged, not well- demonstrated. ctasia bordering on aneurysmal dilatation and possible chronic dissection of the distal thoracic aorta, also previously described. JAVIER on CKD On previous admission Sep-Oct 2019 required HD for short period Going to start HD this admission again R/o COVID / COVID PCR neg 12/29 neg at [facility] per report H/o UTI 10/15 u/a wbc 30-40, nit neg, leuk +3; ucx ESBL P. mirablis, ESBL M. morganii //20 u/a wbc tnct, nit neg, leuk +3; ucx >100k MDR P. stuarti (S Ceftriaxone, Meropenem) 10/07 u/a wbc tnct, nit neg, leuk ; ucx >100k VRE 10/15/19 u/a wbc tnct; ucx >100k ESBL P. stuarti (S ertapenem, aztreonam) H/o transudative pleural effusion 11/28 Sp Thora (w: 169, PMN: 2%, L: 49% , LDH: 57, prot 2.5); cx Neg H/o PNA 10/15/19 Resp cx ESBL P. mirabilis, MDR P.a. (S only to Gent) 09/22 Resp cx + MDR PsA (S-gent; I-colistin; R-levofloxacin, Zosyn, angelo) 09/16/19 Sp cx ESBL P. mirablis H/o PPM site (pocket) infection and pocket abscess 2ry to S. epi-11/2018, sp >6weeks IV vancomycin 11/27 SP ABBIE: no evidence for vegetation on any of the valves 11/26/18 SP PPM removal: OR findings:The fibrous capsule enclosing the generator was then opened and there was a [id number] amount of yellowish fluid drainage. The generator was then removed.Atrial and ventricular leads were detached. The necrotic tissue of the pocket was then removed and the pocket was flushed with an antibiotic solution. Capsule, wound tissue and lead tip cx: Neg 2d echo: no vegetation seen US chest: 4.6 x 3.4 x 0.9 cm hypoechoic/anechoic area overlying left chest pacemaker power pack. This could represent either a discrete fluid collection or a focal area of very edematous tissue. Infected fluid pocket also possible. 11/18 Bcx 3/4 S. epi; 11/20 Bcx neg; 11/24 Bcx Neg; 11/27 Bcx Neg CAD s/p CABG GERD/gastritis Afib HTN Dysphagia sp GT Aortic dissection s/p repair 2017 S/p PPM Parkinson's Disease Schizophrenia Anxiety COPD Chronic resp failure s/p trach Hx of tracheal bleeding ID resident ([facility]) VRE and MRSA colonized Plan: Cont inhaled tobramycin #10/ given MDR PsA in resp cx Cont meropenem #/ Will stop abx tomorrow Wound not treat CRE Kleb pna nor MDR PsA from G-tube cx, likely colonizer and no signs of active infection in that area Trend resp status, secretions F/u Micro lab to perform sensi on MDR PsA from resp cx on Avycaz and Zerbaxa 01/23 SP vanco IV #10 given CONS/GPC bacteremia 01/16 SP Zosyn #2 01/14 SP dex 10mg in ED 12/10 SP IV Gentamycin #10 12/07 SP Meropenem #10 12/01 SP IV Vancomycin #5 11/28 Sp Cefepime #2 and IV Gentamycin x1 Monitor CBC/CMP Monitor temp curve, hemodynamics Monitor resp status D/w RN Thank you for this consult. [facility] will continue to follow. Subjective Allergies: Coded Allergies: No Known Allergies (Unverified , 10/10/17) AF NAD on vent 40% PEEP 5 WBC 6.9 Objective Last 24 Hour Vital Signs Date Time Temp Pulse Resp B/P (MAP) Pulse Ox O2 Delivery O2 Flow Rate FiO2 01/31/20 05:17 146/72 01/31/20 04:00 40 01/31/20 04:00 97.9 73 21 143/73 (96) 100 01/31/20 04:00 Mechanical Ventilator Mechanical Ventilator 01/31/20 03:21 77 01/31/20 03:10 76 21 40 01/31/20 00:00 40 01/31/20 00:00 Mechanical Ventilator Mechanical Ventilator 01/31/20 00:00 98.0 66 15 130/57 (81) 100 01/30/20 23:54 63 01/30/20 23:12 152/78 01/30/20 22:45 77 22 100 Mechanical Ventilator 40 75 19 40 01/30/20 20:40 76 144/71 01/30/20 20:00 98.2 77 16 144/71 (95) 100 01/30/20 20:00 Mechanical Ventilator Mechanical Ventilator 01/30/20 20:00 40 01/30/20 19:43 74 01/30/20 19:02 82 21 40 01/30/20 18:23 133/65 01/30/20 18:23 133/65 01/30/20 18:23 71 133/65 01/30/20 16:00 Mechanical Ventilator Mechanical Ventilator 01/30/20 16:00 40 01/30/20 16:00 98.0 73 19 140/67 (91) 100 01/30/20 16:00 71 01/30/20 15:10 73 24 40 01/30/20 14:03 67 17 133/65 100 01/30/20 13:33 133/65 01/30/20 13:33 67 17 133/65 100 01/30/20 13:11 65 15 40 01/30/20 12:00 40 01/30/20 12:00 98.8 67 17 133/65 (87) 100 01/30/20 12:00 133/65 01/30/20 12:00 Mechanical Ventilator Mechanical Ventilator 01/30/20 12:00 75 01/30/20 10:39 62 17 100 Mechanical Ventilator 40 60 14 01/30/20 08:43 70 138/63 01/30/20 08:43 138/63 01/30/20 08:43 70 138/63 01/30/20 08:40 81 25 40 Height (Feet): 5 Height (Inches): 6.00 Weight (Pounds): 150 Gen: NAD HEENT: NCAT, +trach CV: RRR Pulm: CTAB on vent Abd: Non-distended, +PEG with skin intact wo erythema or discharge, but brownish discharge on dressing Ext: No c/c/e Skin: No visible rashes Neuro: Awake, minimally interactive Lines: L fem HD cath Laboratory Tests Test 01/31/20 00:25 01/31/20 03:00 POC Whole Blood Glucose 95 MG/DL (74-106) White Blood Count 6.9 K/UL (4.8-10.8) Red Blood Count 2.97 M/UL (4.20-5.40) L Hemoglobin 8.6 G/DL (12.0-16.0) L Hematocrit 25.4 % (37.0-47.0) L Mean Corpuscular Volume 85 FL (80-99) Mean Corpuscular Hemoglobin 28.8 PG (27.0-31.0) Mean Corpuscular Hemoglobin Concent 33.7 G/DL (32.0-36.0) Red Cell Distribution Width 14.4 % (11.6-14.8) Platelet Count 291 K/UL (150-450) Mean Platelet Volume 6.7 FL (6.5-10.1) Neutrophils (%) (Auto) 72.3 % (45.0-75.0) Lymphocytes (%) (Auto) 19.1 % (20.0-45.0) L Monocytes (%) (Auto) 7.1 % (1.0-10.0) Eosinophils (%) (Auto) 0.8 % (0.0-3.0) Basophils (%) (Auto) 0.7 % (0.0-2.0) Current Medications Medications (Trade) Dose Ordered Sig/Penny Route PRN Reason Start Time Stop Time Status Last Admin Dose Admin Acetaminophen (Tylenol) 500 mg Q6H PRN GT FEVER 01/21/20 20:45 02/20/20 20:44 01/29/20 02:01 Acetaminophen/ Hydrocodone Bitart ([place] 5/325) 1 tab Q6H PRN GT Moderate Breakthru Pain (5-7) 01/31/20 07:45 02/07/20 07:44 Amlodipine Besylate (Norvasc) 5 mg BID GT 01/22/20 18:00 02/20/20 15:44 01/30/20 18:23 Aspirin (ASA) 81 mg DAILY GT 01/20/20 09:00 03/05/20 08:59 01/30/20 08:44 Atorvastatin Calcium (Lipitor) 10 mg BEDTIME GT 01/17/20 21:00 04/16/20 20:59 01/30/20 20:39 Chlorhexidine Gluconate (Ling-Hex 2%) 1 applic DAILY@2000 TOPIC 01/17/20 20:00 04/16/20 19:59 01/30/20 20:39 Dextrose (Dextrose 50%) 25 ml Q30M PRN IV Hypoglycemia 01/15/20 22:15 04/14/20 22:14 Dextrose (Dextrose 50%) 50 ml Q30M PRN IV Hypoglycemia 01/15/20 22:15 04/14/20 22:14 01/22/20 17:54 Docusate Sodium (Colace) 200 mg BIDPRN PRN GT Constipation 01/31/20 07:45 03/01/20 07:44 Epoetin Gelacio (Epoetin Gelacio(ESRD on dialysis)) 10,000 unit MON-MON-MON SUBQ 01/27/20 21:00 04/26/20 20:59 12/16/20 20:27 Hydralazine HCl (Apresoline) 25 mg Q6HR GT 01/26/20 18:15 04/25/20 18:14 01/31/20 05:17 Isosorbide Dinitrate (Isordil) 20 mg TID GT 01/25/20 09:00 02/19/20 08:59 01/30/20 18:23 Lansoprazole (Prevacid) 30 mg BID GT 01/19/20 18:00 02/18/20 17:59 01/30/20 18:22 Meropenem 500 mg/ Sodium Chloride 55 ml @ 110 mls/hr Q12HR IVPB 01/27/20 09:00 02/01/20 08:59 01/30/20 20:42 Metoclopramide HCl (Reglan) 5 mg Q6H PRN IVP Nausea & Vomiting 01/15/20 22:15 02/14/20 22:14 Metoprolol Tartrate (Lopressor) 25 mg Q12HR ORAL 01/27/20 21:00 04/22/20 20:59 01/30/20 20:40 Sodium Hypochlorite (Dakin's Quarter Strength) 1 applic DAILY TOPIC 01/30/20 09:00 02/29/20 08:59 01/30/20 09:00 Tobramycin Sulfate (Nebcin) 300 mg Q12HRT INH 01/23/20 22:00 01/31/20 23:59 01/30/20 22:40 Zinc Oxide (Zinc Oxide) 1 applic TIDPRN PRN TOPIC diogenes GT 01/16/20 13:15 04/15/20 13:14 01/16/20 14:55 Ro Pack M.D. Jan 31, 2020 08:11
[2020-01-31] MEDS ORDERED: NS 275ml ONE (08:23)
[2020-01-31] MEDS: Aspirin Baby 81mg GT SCH (08:29)
[2020-01-31] MEDS: Dakin's 0.125% Soln (Quarter Strength) 16oz TOPIC SCH (08:30)
[2020-01-31] MEDS: Meropenem 500 MG in NS 55 ML IVPB SCH ×2 (08:35→20:35)
[2020-01-31] MEDS ORDERED: Docusate 100mg/10ml Liq GT SCH (09:00)
--- NOTE | 2020-01-31 09:25 | Pulmonology Progress Note ---
Subjective ROS Limited/Unobtainable: Yes Interval Events: s/p HD Constitutional: Reports: no symptoms HEENT: Repors: no symptoms Respiratory: Reports: no symptoms Cardiovascular: Reports: no symptoms Gastrointestinal/Abdominal: Reports: no symptoms Allergies: Coded Allergies: No Known Allergies (Unverified , 10/10/17) All Systems: reviewed and negative except above Objective Last 24 Hour Vital Signs Date Time Temp Pulse Resp B/P (MAP) Pulse Ox O2 Delivery O2 Flow Rate FiO2 01/31/20 08:29 146/63 01/31/20 08:29 84 146/63 01/31/20 08:00 99.1 84 21 146/63 (90) 95 01/31/20 07:12 84 19 40 01/31/20 05:17 146/72 01/31/20 04:00 40 01/31/20 04:00 97.9 73 21 143/73 (96) 100 01/31/20 04:00 Mechanical Ventilator Mechanical Ventilator 01/31/20 03:21 77 01/31/20 03:10 76 21 40 01/31/20 00:00 40 01/31/20 00:00 Mechanical Ventilator Mechanical Ventilator 01/31/20 00:00 98.0 66 15 130/57 (81) 100 01/30/20 23:54 63 01/30/20 23:12 152/78 01/30/20 22:45 77 22 100 Mechanical Ventilator 40 75 19 40 01/30/20 20:40 76 144/71 01/30/20 20:00 98.2 77 16 144/71 (95) 100 01/30/20 20:00 Mechanical Ventilator Mechanical Ventilator 01/30/20 20:00 40 01/30/20 19:43 74 01/30/20 19:02 82 21 40 01/30/20 18:23 133/65 20 18:23 133/65 01/30/20 18:23 71 133/65 01/30/20 16:00 Mechanical Ventilator Mechanical Ventilator 01/30/20 16:00 40 01/30/20 16:00 98.0 73 19 140/67 (91) 100 01/30/20 16:00 71 01/30/20 15:10 73 24 40 01/30/20 14:03 67 17 133/65 100 01/30/20 13:33 133/65 01/30/20 13:33 67 17 133/65 100 01/30/20 13:11 65 15 40 01/30/20 12:00 40 01/30/20 12:00 98.8 67 17 133/65 (87) 100 01/30/20 12:00 133/65 01/30/20 12:00 Mechanical Ventilator Mechanical Ventilator 01/30/20 12:00 75 01/30/20 10:39 62 17 100 Mechanical Ventilator 40 60 14 Intake and Output 01/30/20 01/31/20 19:00 07:00 Intake Total 210 ml 400 ml Output Total 2000 ml 200 ml Balance -1790 ml 200 ml Free Water 60 ml IV Total 110 ml Tube Feeding 40 ml 400 ml Output Urine Total 200 ml Hemodialysis UF 2000 ml # Bowel Movements 2 3 General Appearance: no acute distress HEENT: normocephalic, other - trach Respiratory: chest wall non-tender, other - coarse lung sounds Cardiovascular: normal rate, regular rhythm Abdomen: soft, non tender Genitourinary: other - [place] Extremities: other - trace edema Laboratory Tests 01/31/20 00:25: POC Whole Blood Glucose 95 01/31/20 03:00: White Blood Count 6.9, Red Blood Count 2.97L, Hemoglobin 8.6L, Hematocrit 25.4L, Mean Corpuscular Volume 85, Mean Corpuscular Hemoglobin 28.8, Mean Corpuscular Hemoglobin Concent 33.7, Red Cell Distribution Width 14.4, Platelet Count 291, Mean Platelet Volume 6.7, Neutrophils (%) (Auto) 72.3, Lymphocytes (%) (Auto) 19.1L, Monocytes (%) (Auto) 7.1, Eosinophils (%) (Auto) 0.8, Basophils (%) (Auto) 0.7 Current Medications Medications (Trade) Dose Ordered Sig/Penny Route PRN Reason Start Time Stop Time Status Last Admin Dose Admin Acetaminophen (Tylenol) 500 mg Q6H PRN GT FEVER 01/21/20 20:45 02/20/20 20:44 01/29/20 02:01 Acetaminophen/ Hydrocodone Bitart ([place] 5/325) 1 tab Q6H PRN GT Moderate Breakthru Pain (5-7) 01/31/20 07:45 02/07/20 07:44 Amlodipine Besylate (Norvasc) 5 mg BID GT 01/22/20 18:00 02/20/20 15:44 01/31/20 08:29 Aspirin (ASA) 81 mg DAILY GT 01/20/20 09:00 03/05/20 08:59 01/31/20 08:29 Atorvastatin Calcium (Lipitor) 10 mg BEDTIME GT 01/17/20 21:00 04/16/20 20:59 01/30/20 20:39 Chlorhexidine Gluconate (Ling-Hex 2%) 1 applic DAILY@2000 TOPIC 01/17/20 20:00 04/16/20 19:59 01/30/20 20:39 Dextrose (Dextrose 50%) 25 ml Q30M PRN IV Hypoglycemia 01/15/20 22:15 04/14/20 22:14 Dextrose (Dextrose 50%) 50 ml Q30M PRN IV Hypoglycemia 01/15/20 22:15 04/14/20 22:14 01/22/20 17:54 Docusate Sodium (Colace) 200 mg BIDPRN PRN GT Constipation 01/31/20 07:45 03/01/20 07:44 Epoetin Gelacio (Epoetin Gelacio(ESRD on dialysis)) 10,000 unit MON-MON-MON SUBQ 01/27/20 21:00 04/26/20 20:59 01/29/20 20:27 Hydralazine HCl (Apresoline) 25 mg Q6HR GT 01/26/20 18:15 04/25/20 18:14 01/31/20 05:17 Isosorbide Dinitrate (Isordil) 20 mg TID GT 01/25/20 09:00 02/19/20 08:59 01/31/20 08:29 Lansoprazole (Prevacid) 30 mg BID GT 01/19/20 18:00 02/18/20 17:59 01/31/20 08:29 Meropenem 500 mg/ Sodium Chloride 55 ml @ 110 mls/hr Q12HR IVPB 01/27/20 09:00 02/01/20 08:59 01/31/20 08:35 Metoclopramide HCl (Reglan) 5 mg Q6H PRN IVP Nausea & Vomiting 01/15/20 22:15 02/14/20 22:14 Metoprolol Tartrate (Lopressor) 25 mg Q12HR ORAL 01/27/20 21:00 04/22/20 20:59 01/30/20 20:40 Sodium Hypochlorite (Dakin's Quarter Strength) 1 applic DAILY TOPIC 01/30/20 09:00 02/29/20 08:59 01/31/20 08:30 Tobramycin Sulfate (Nebcin) 300 mg Q12HRT INH 01/23/20 22:00 01/31/20 23:59 01/30/20 22:40 Zinc Oxide (Zinc Oxide) 1 applic TIDPRN PRN TOPIC diogenes GT 01/16/20 13:15 04/15/20 13:14 01/16/20 14:55 Assessment/Plan Assessment/Plan Assessment/Plan 1. Large left effusion. - S/p thoracentesis; CXR better - pleural fluid pathology report: negative for malignant cell 2. Chronic respiratory failure. - Continue trach care - Cont AC mode - Currently saturating at 97% 3. Sepsis; improving 4. Anemia - improving - s/p transfusion - s/p Epogen - repeat stool OB pending per Dr. Mccauley s/p HD on broad-spectrum antibiotics. Pulmonary hygiene. DVT and GI prophylaxes. The care for this patient was discussed with my supervising physician Time spent for this case as approximately 31 minutes Elijah Stephen,Elijah Harrison MD Jan 31, 2020 09:25
[2020-01-31] MEDS: Docusate 100mg/10ml Liq GT PRN ×2 (10:39→20:34)
[2020-01-31] MEDS: Tobramycin for inhalation INH SCH ×2 (11:18→22:48)
--- NOTE | 2020-01-31 11:52 | General Progress Note ---
Subjective ROS Limited/Unobtainable: No Allergies: Coded Allergies: No Known Allergies (Unverified , 10/10/17) Objective Last 24 Hour Vital Signs Date Time Temp Pulse Resp B/P (MAP) Pulse Ox O2 Delivery O2 Flow Rate FiO2 01/31/20 11:41 125/76 01/31/20 11:18 75 20 98 Mechanical Ventilator 40 76 20 40 01/31/20 09:44 88 139/60 01/31/20 08:29 146/63 01/31/20 08:29 84 146/63 01/31/20 08:00 78 01/31/20 08:00 99.1 84 21 146/63 (90) 95 01/31/20 08:00 Mechanical Ventilator Mechanical Ventilator 01/31/20 08:00 40 01/31/20 07:12 84 19 40 01/31/20 05:17 146/72 01/31/20 04:00 40 01/31/20 04:00 97.9 73 21 143/73 (96) 100 01/31/20 04:00 Mechanical Ventilator Mechanical Ventilator 01/31/20 03:21 77 01/31/20 03:10 76 21 40 01/31/20 00:00 40 01/31/20 00:00 Mechanical Ventilator Mechanical Ventilator 01/31/20 00:00 98.0 66 15 130/57 (81) 100 01/30/20 23:54 63 01/30/20 23:12 152/78 01/30/20 22:45 77 22 100 Mechanical Ventilator 40 75 19 40 01/30/20 20:40 76 144/71 01/30/20 20:00 98.2 77 16 144/71 (95) 100 01/30/20 20:00 Mechanical Ventilator Mechanical Ventilator 01/30/20 20:00 40 01/30/20 19:43 74 01/30/20 19:02 82 21 40 01/30/20 18:23 133/65 01/30/20 18:23 133/65 01/30/20 18:23 71 133/65 01/30/20 16:00 Mechanical Ventilator Mechanical Ventilator 01/30/20 16:00 40 01/30/20 16:00 98.0 73 19 140/67 (91) 100 01/30/20 16:00 71 01/30/20 15:10 73 24 40 01/30/20 14:03 67 17 133/65 100 01/30/20 13:33 133/65 01/30/20 13:33 67 17 133/65 100 01/30/20 13:11 65 15 40 01/30/20 12:00 40 01/30/20 12:00 98.8 67 17 133/65 (87) 100 01/30/20 12:00 133/65 01/30/20 12:00 Mechanical Ventilator Mechanical Ventilator 01/30/20 12:00 75 Intake and Output 01/30/20 01/31/20 19:00 07:00 Intake Total 210 ml 400 ml Output Total 2000 ml 200 ml Balance -1790 ml 200 ml Free Water 60 ml IV Total 110 ml Tube Feeding 40 ml 400 ml Output Urine Total 200 ml Hemodialysis UF 2000 ml # Bowel Movements 2 3 Laboratory Tests 01/31/20 00:25: POC Whole Blood Glucose 95 01/31/20 03:00: White Blood Count 6.9, Red Blood Count 2.97L, Hemoglobin 8.6L, Hematocrit 25.4L, Mean Corpuscular Volume 85, Mean Corpuscular Hemoglobin 28.8, Mean Corpuscular Hemoglobin Concent 33.7, Red Cell Distribution Width 14.4, Platelet Count 291, Mean Platelet Volume 6.7, Neutrophils (%) (Auto) 72.3, Lymphocytes (%) (Auto) 19.1L, Monocytes (%) (Auto) 7.1, Eosinophils (%) (Auto) 0.8, Basophils (%) (Auto) 0.7 01/31/20 11:19: POC Whole Blood Glucose 91 Height (Feet): 5 Height (Inches): 6.00 Weight (Pounds): 150 General Appearance: no apparent distress EENT: normal ENT inspection Neck: supple Cardiovascular: normal rate Respiratory/Chest: decreased breath sounds Abdomen: normal bowel sounds, non tender, soft Extremities: non-tender Assessment/Plan Problem List: (1) Hx of CABG ICD Codes: Z95.1 - Presence of aortocoronary bypass graft SNOMED: 823096224, 177103687 (2) History of tracheostomy ICD Codes: Z98.890 - Other specified postprocedural states SNOMED: 727001232, 957625468 (3) PEG (percutaneous endoscopic gastrostomy) status ICD Codes: Z93.1 - Gastrostomy status SNOMED: 684461358, 663135803 (4) S/P aortic dissection repair ICD Codes: Z98.890 - Other specified postprocedural states SNOMED: 460182284, 256015056 (5) Renal failure ICD Codes: N19 - Unspecified kidney failure SNOMED: 64360323, 237676641 (6) Anemia ICD Codes: D64.9 - Anemia, unspecified SNOMED: 459189015 Assessment/Plan: stable H&H repeat stool ob GTF HD per nephrology persistent elevated lipase\ ct reviewed Inder Mccauley MD Jan 31, 2020 11:52
[2020-01-31 11:54] VITALS: BP 142/62
--- NOTE | 2020-01-31 12:00 | NUR ---
NURSE NOTES: Dr. Dong at nurse station, spoke with this nurse regarding patient's plan of care and ordered Amantadine 100 mg GT BID for movement disorder. Order entered, noted, and carried out. Will continue to monitor patient.
--- NOTE | 2020-01-31 12:45 | Surgery Progress Note ---
Surgery Progress Note Subjective Procedure Performed Left femoral temporary hemodialysis catheter insertion Symptoms: improved, pain absent, tolerating diet, passing flatus, BM Objective Last 24 Hour Vital Signs Date Time Temp Pulse Resp B/P (MAP) Pulse Ox O2 Delivery O2 Flow Rate FiO2 01/31/20 12:23 137/75 01/31/20 11:54 97.7 75 21 142/62 (88) 95 01/31/20 11:41 125/76 01/31/20 11:18 75 20 98 Mechanical Ventilator 40 76 20 40 01/31/20 09:44 88 139/60 01/31/20 08:29 146/63 01/31/20 08:29 84 146/63 01/31/20 08:00 78 01/31/20 08:00 99.1 84 21 146/63 (90) 95 01/31/20 08:00 Mechanical Ventilator Mechanical Ventilator 01/31/20 08:00 40 01/31/20 07:12 84 19 40 01/31/20 05:17 146/72 01/31/20 04:00 40 01/31/20 04:00 97.9 73 21 143/73 (96) 100 01/31/20 04:00 Mechanical Ventilator Mechanical Ventilator 01/31/20 03:21 77 01/31/20 03:10 76 21 40 01/31/20 00:00 40 01/31/20 00:00 Mechanical Ventilator Mechanical Ventilator 01/31/20 00:00 98.0 66 15 130/57 (81) 100 01/30/20 23:54 63 01/30/20 23:12 152/78 01/30/20 22:45 77 22 100 Mechanical Ventilator 40 75 19 40 01/30/20 20:40 76 144/71 01/30/20 20:00 98.2 77 16 144/71 (95) 100 01/30/20 20:00 Mechanical Ventilator Mechanical Ventilator 01/30/20 20:00 40 01/30/20 19:43 74 01/30/20 19:02 82 21 40 01/30/20 18:23 133/65 20 18:23 133/65 20 18:23 71 133/65 01/30/20 16:00 Mechanical Ventilator Mechanical Ventilator 01/30/20 16:00 40 01/30/20 16:00 98.0 73 19 140/67 (91) 100 01/30/20 16:00 71 01/30/20 15:10 73 24 40 01/30/20 14:03 67 17 133/65 100 01/30/20 13:33 133/65 01/30/20 13:33 67 17 133/65 100 01/30/20 13:11 65 15 40 I&O Intake and Output 01/30/20 01/31/20 19:00 07:00 Intake Total 210 ml 400 ml Output Total 2000 ml 200 ml Balance -1790 ml 200 ml Free Water 60 ml IV Total 110 ml Tube Feeding 40 ml 400 ml Output Urine Total 200 ml Hemodialysis UF 2000 ml # Bowel Movements 2 3 Dressing: saturated Cardiovascular: RSR Respiratory: decreased breath sounds Abdomen: non-tender, present bowel sounds Extremities: edema, no tenderness, no cyanosis Laboratory Tests Test 01/31/20 00:25 01/31/20 03:00 01/31/20 11:19 POC Whole Blood Glucose 95 MG/DL (74-106) 91 MG/DL (74-106) White Blood Count 6.9 K/UL (4.8-10.8) Red Blood Count 2.97 M/UL (4.20-5.40) L Hemoglobin 8.6 G/DL (12.0-16.0) L Hematocrit 25.4 % (37.0-47.0) L Mean Corpuscular Volume 85 FL (80-99) Mean Corpuscular Hemoglobin 28.8 PG (27.0-31.0) Mean Corpuscular Hemoglobin Concent 33.7 G/DL (32.0-36.0) Red Cell Distribution Width 14.4 % (11.6-14.8) Platelet Count 291 K/UL (150-450) Mean Platelet Volume 6.7 FL (6.5-10.1) Neutrophils (%) (Auto) 72.3 % (45.0-75.0) Lymphocytes (%) (Auto) 19.1 % (20.0-45.0) L Monocytes (%) (Auto) 7.1 % (1.0-10.0) Eosinophils (%) (Auto) 0.8 % (0.0-3.0) Basophils (%) (Auto) 0.7 % (0.0-2.0) Hepatitis B Surface Antigen Pending Hepatitis B Surface Antibody, Quant Pending Hepatitis C Antibody Pending Plan Problems: (1) Dehydration (2) Acidosis (3) Depression (4) Pleural effusion (5) Respiratory failure (6) Schizophrenia (7) Hypoxia (8) UTI (urinary tract infection) (9) Pneumonia (10) NSTEMI (non-ST elevated myocardial infarction) (11) Tracheostomy in place (12) Feeding by G-tube (13) JAVIER (acute kidney injury) (14) Acute encephalopathy (15) Sacral decubitus ulcer, stage IV (16) Chronic respiratory failure (17) Ascites (18) Bacteremia (19) Hypernatremia (20) Proteinuria (21) Electrolyte imbalance (22) ACS (acute coronary syndrome) (23) Aortic dissection, thoracic (24) Respiratory failure, acute and chronic (25) JAVIER (acute kidney injury) (26) Abrasion of lip, initial encounter (27) COPD with exacerbation (28) Elevated alkaline phosphatase level (29) Renal failure (ARF), acute on chronic (30) HCAP (healthcare-associated pneumonia) (31) GT CLOGGED (32) Elevated lipase (33) Pancreatitis (34) Elevated troponin (35) Hypokalemia (36) Hyponatremia (37) Anemia (38) Renal failure (39) ARF (acute renal failure) (40) Pacemaker (41) Sepsis Assessment & Plan: leukocytosis anemia on HD renal insufficiency wounds addressed pancreatitis cont diet as tolerating trend labs lf'ts okay pt presented on admission with Tracheostomy ,GT and Multiple Pressure Injuries. Skin assessment of skin under tracheal collar without evidence of skin clifford akdown. Peristomal GT site excoriated.Moderate amt of dark red sanguineous exudate. Full Thickness Sacral Pressure Injury with undermined borders (L)9 cm x (W)12cm x (D)1.8cm,Undermining clockwise8-9 by 2.2cm @1o'clock,undermining clockwise 1-4 by 1.9 @ 9'oclock Scattered necrotic tissue within wound bed. Borders are loose and necrotic with marginal erythema to outer perimeter of wound. NO elevation in skin temp noted periwound. Wound is malodorous. Small amt Brown exudate noted. Resolving Pressure Injury L Ischium(L)1.5cm x (W)1.5cm. Base of wound is 80% pink epithelial with an area that is moist and pink. NO odor or exudate noted. Bilat foot-drop noted. L Heel is boggy with non-blanchable erythema(L)4cm x (W)4cm. R heel is boggy with non-Blanchable erythema(L)5cm x (W)6cm. Tx.Plan: Cleanse sacral wound with Dakin's 0.125% annie. Loosely pack with Dakin's moistened Kerlix(Attention to undermined borders). Apply Moisture Barrier Paste periwound. Cover with Optifoam drsg. Change Daily and PRN. Apply Cavilon Skin Barrier to R and L Hels. Cover each heel with Optifoam drsg. Change every 7 days and prn. Reposition at least every 2hours or as tolerated. Off-load heels with Pillow. APM/JENNIFER MAttress overlay DAILY ESTIMATED NEEDS: Needs based on Critical care, wound, renal dysfunction 56 kg abw 28-33 kcals/kg 8931-9413 total kcals W/ HD (1.5-2.0) g protein/kg 84-112 g total protein Fluid per MD mL/kg . total fluid mLs NUTRITION DIAGNOSIS: * Swallowing difficulty R/T dysphagia, respiratory status as evidenced by vent dep via trach, GT Dep. * Increase kcal and pro needs r/t wound healing, renal dysfunction as evidenced by admitted w/ large, advanced sacral wound, previously stage 4, pending eval, admitted w/ JAVIER, pending HD. CURRENT TF:NPO ENTERAL NUTRITION RECOMMENDATIONS: Nepro @ 40ml/hr x 24 hrs + Prosource 1pkt QD to provide 960ml, 1728kcal, 78g+11g prot, 698ml free water * As medically appropriate, initiate TF on Nepro, rec goal rate fo 40ml/hr x 24 hrs * Add Prosource 1pkt QD to better meet increased protein needs (additional 11g prot) * Water flush per MD/ HOB over 30 degrees ADDITIONAL RECOMMENDATIONS: * Per SNF in NOV 2019: HT=63"/ Rec daily calibrated bedscale wt * Monitor for continuity of HD: non-tunneled cath placement ordered * Monitor lytes and renal fxn for improvement (Na low, K and phos elevated) * Wound care: add Nephrovite x 1, ZnSO4 220mg QD x 10 days Reynaldo BID via PEG (mix w/ 2-4 oz water) * Monitor BG closely for hypoglycemia while NPO (h/o DM, on Nacl 3% to correct hyponatremia, consider accuchecks) (42) Hyponatremia Lane Saavedra Jan 31, 2020 12:45
--- NOTE | 2020-01-31 12:47 | General Progress Note ---
Subjective Constitutional: Reports: no symptoms HEENT: Reports: no symptoms Cardiovascular: Reports: no symptoms Respiratory: Reports: cough Gastrointestinal/Abdominal: Reports: no symptoms Genitourinary: Reports: no symptoms Neurologic/Psychiatric: Reports: no symptoms, tremors - The tremors previously affected both arms both legs and the head currently there is no tremor in lower extremity there is minimal tremor in upper extremity but there is visible tremor in the head movement that appeared to be 30-60 movement per minute with very small amplitude Endocrine: Reports: no symptoms Hematologic/Lymphatic: Reports: no symptoms Allergies: Coded Allergies: No Known Allergies (Unverified , 10/10/17) Objective Last 24 Hour Vital Signs Date Time Temp Pulse Resp B/P (MAP) Pulse Ox O2 Delivery O2 Flow Rate FiO2 01/31/20 12:23 137/75 01/31/20 11:54 97.7 75 21 142/62 (88) 95 01/31/20 11:41 125/76 01/31/20 11:18 75 20 98 Mechanical Ventilator 40 76 20 40 01/31/20 09:44 88 139/60 01/31/20 08:29 146/63 01/31/20 08:29 84 146/63 01/31/20 08:00 78 01/31/20 08:00 99.1 84 21 146/63 (90) 95 01/31/20 08:00 Mechanical Ventilator Mechanical Ventilator 01/31/20 08:00 40 01/31/20 07:12 84 19 40 01/31/20 05:17 146/72 01/31/20 04:00 40 01/31/20 04:00 97.9 73 21 143/73 (96) 100 01/31/20 04:00 Mechanical Ventilator Mechanical Ventilator 01/31/20 03:21 77 01/31/20 03:10 76 21 40 01/31/20 00:00 40 01/31/20 00:00 Mechanical Ventilator Mechanical Ventilator 01/31/20 00:00 98.0 66 15 130/57 (81) 100 01/30/20 23:54 63 01/30/20 23:12 152/78 01/30/20 22:45 77 22 100 Mechanical Ventilator 40 75 19 40 01/30/20 20:40 76 144/71 01/30/20 20:00 98.2 77 16 144/71 (95) 100 01/30/20 20:00 Mechanical Ventilator Mechanical Ventilator 01/30/20 20:00 40 01/30/20 19:43 74 01/30/20 19:02 82 21 40 01/30/20 18:23 133/65 01/30/20 18:23 133/65 01/30/20 18:23 71 133/65 01/30/20 16:00 Mechanical Ventilator Mechanical Ventilator 01/30/20 16:00 40 01/30/20 16:00 98.0 73 19 140/67 (91) 100 01/30/20 16:00 71 01/30/20 15:10 73 24 40 01/30/20 14:03 67 17 133/65 100 01/30/20 13:33 133/65 01/30/20 13:33 67 17 133/65 100 01/30/20 13:11 65 15 40 Intake and Output 01/30/20 01/31/20 19:00 07:00 Intake Total 210 ml 400 ml Output Total 2000 ml 200 ml Balance -1790 ml 200 ml Free Water 60 ml IV Total 110 ml Tube Feeding 40 ml 400 ml Output Urine Total 200 ml Hemodialysis UF 2000 ml # Bowel Movements 2 3 Laboratory Tests 01/31/20 00:25: POC Whole Blood Glucose 95 01/31/20 03:00: White Blood Count 6.9, Red Blood Count 2.97L, Hemoglobin 8.6L, Hematocrit 25.4L, Mean Corpuscular Volume 85, Mean Corpuscular Hemoglobin 28.8, Mean Corpuscular Hemoglobin Concent 33.7, Red Cell Distribution Width 14.4, Platelet Count 291, Mean Platelet Volume 6.7, Neutrophils (%) (Auto) 72.3, Lymphocytes (%) (Auto) 19.1L, Monocytes (%) (Auto) 7.1, Eosinophils (%) (Auto) 0.8, Basophils (%) (Auto) 0.7, Hepatitis B Surface Antigen [Pending], Hepatitis B Surface Antibody, Quant [Pending], Hepatitis C Antibody [Pending] 01/31/20 11:19: POC Whole Blood Glucose 91 Height (Feet): 5 Height (Inches): 6.00 Weight (Pounds): 150 General Appearance: alert, mild distress EENT: normal ENT inspection Neck: supple Cardiovascular: normal rate, regular rhythm, no gallop/murmur, no JVD, other - With intermittent tachycardia regular Respiratory/Chest: lungs clear, normal breath sounds, no accessory muscle use, other - The embolization to lower lobe appeared to be reduced have bilateral rhonchi that cannot be heard in upper lobes Abdomen: normal bowel sounds, non tender, soft, no organomegaly, no mass Extremities: non-tender Neurologic: alert, aphasia, other - There is no verbal response however there is eye contact and normal attention span Skin: warm/dry Assessment/Plan Status Narrative Patient is awake alert febrile with eye contact but no verbal response she does have a head tremor that was described above and minimal upper extremity tremor that has been at low-dose [id number] it seems to affect mostly the frequency rather than the nature of the abnormal movement was placed today on amantadine 100 mg twice daily as a treatment for her abnormal movement she is still on meropenem tobramycin her CBC revealed normal WBCs however 5 days ago patient go Klebsiella pneumonia and Pseudomonas grows MDR in the sputum repeat laboratory tests will be done in a.m. Lucas Vera MD, MD Jan 31, 2020 12:46
[2020-01-31] MEDS: HYDROcodone/Acetamin 5/325 tab GT PRN ×2 (13:26→20:34)
--- NOTE | 2020-01-31 14:04 | NUR ---
CASE MANAGEMENT:REVIEW 01/31/20 SI: SEPSIS. PNA. AC/CHR RENAL FAILURE(TEMPORARY HD CATH) TRACH/VENT DEPENDENT 97.7 75 21 142/62 95% ON VENT SUPPORT W/40% FIO2 H/H-8.6/25.4 IS: IV MEROPENEM Q24 TOBRAMYCIN INH Q12 NORVASC GT BID LOPRESSOR GT Q12 ISORDIL GT TID ASA GT QD PREVACID GT BID : STEP DOWN UNIT DCP: FROM [facility] PLAN: EGD WHEN MORE STABLE HAS TEMPORARY HD CATH. WILL NEED TUNNELED CATH FOR DAIRY NUTRITION SPECIALIST DIALYSIS HEPATITIS PANEL ORDERED
--- NOTE | 2020-01-31 14:25 | Nephrology Progress Note ---
Assessment/Plan Problem List: (1) ARF (acute renal failure) (2) Pacemaker (3) Sepsis (4) Hyponatremia Assessment (1) JAVIER (acute kidney injury) (2) Renal failure (ARF), acute on chronic (3) Feeding by G-tube (4) Tracheostomy in place (5) Electrolyte imbalance, hyponatremia (6) Anemia, severe (7) Respiratory failure, acute and chronic (8) Elevated lipase, pancreatitis (9) Elevated troponin I (10) Sepsis Plan January 30: Patient was dialyzed yesterday. No labs drawn today. Continue to monitor renal parameters and dialyze as needed. Continue per consultants and PMD. January 29: Patient due for dialysis today. Today's can panel reviewed. Continue to monitor renal parameters and dialysis as needed. January 28: Patient last dialyzed January 26. No labs drawn today. Will order dialysis tomorrow. Check chemistry panel tomorrow. Continue per consultants. January 27: Patient was dialyzed yesterday . Labs were reviewed. Electrolytes within normal limit. Blood pressure stable. January 26: When visited the patient earlier today the patient was on dialysis. Tolerating well. Labs reviewed. Blood pressure stable. January 25: Dialysis for tomorrow. Labs reviewed. Hemoglobin remains low. Will adjust blood pressure medication. Hydralazine added to the regimen January 24: Last dialyzed January 22. Labs reviewed. Status quo. Will dialyze as needed. Low hemoglobin noted. Transfusion per PMD decision. Epogen started. \January 23: Dialyzed yesterday. Today's labs reviewed. Continue to monitor renal parameters and arrange for dialysis as needed. Continue per PMD. January 22: Seen earlier during dialysis. Labs reviewed. Medication list reviewed. Continue current management. January 21: Labs reviewed. Medication list reviewed. Next hemodialysis tomorrow. Blood pressure medication adjusted. January 20: Dialyzed yesterday. Labs reviewed. Continue per current management. Dialysis as needed. Add Norvasc to blood pressure regimen January 19: Due for dialysis today. Labs reviewed. Continue her current management. Continue to monitor renal parameters and electrolytes. January 18: Dialyzed yesterday. Labs reviewed. Renal parameters electrolytes much improved. Dialysis again tomorrow. Continue rest. January 17: Dialyzed this morning. Labs reviewed. Renal parameters and electrolyte abnormalities improved. Discussed with RN. Continue per consultants. January 16: Dialyzed yesterday. Labs improved. Next dialysis tomorrow. Continue per consultants. January 15: Patient to have dialysis catheter. Emergency dialysis for correction of uremia and electrolyte imbalances Antibiotics Transfusion Continue to monitor renal parameters Per orders Discussed with RN Subjective ROS Limited/Unobtainable: Yes Objective Objective Last 24 Hour Vital Signs Date Time Temp Pulse Resp B/P (MAP) Pulse Ox O2 Delivery O2 Flow Rate FiO2 01/31/20 12:23 137/75 01/31/20 12:00 77 01/31/20 12:00 40 01/31/20 12:00 Mechanical Ventilator Mechanical Ventilator 01/31/20 11:54 97.7 75 21 142/62 (88) 95 01/31/20 11:41 125/76 01/31/20 11:18 75 20 98 Mechanical Ventilator 40 76 20 40 01/31/20 09:44 88 139/60 01/31/20 08:29 146/63 01/31/20 08:29 84 146/63 01/31/20 08:00 78 01/31/20 08:00 99.1 84 21 146/63 (90) 95 01/31/20 08:00 Mechanical Ventilator Mechanical Ventilator 01/31/20 08:00 40 01/31/20 07:12 84 19 40 01/31/20 05:17 146/72 01/31/20 04:00 40 01/31/20 04:00 97.9 73 21 143/73 (96) 100 01/31/20 04:00 Mechanical Ventilator Mechanical Ventilator 01/31/20 03:21 77 01/31/20 03:10 76 21 40 01/31/20 00:00 40 01/31/20 00:00 Mechanical Ventilator Mechanical Ventilator 01/31/20 00:00 98.0 66 15 130/57 (81) 100 01/30/20 23:54 63 01/30/20 23:12 152/78 01/30/20 22:45 77 22 100 Mechanical Ventilator 40 75 19 40 01/30/20 20:40 76 144/71 01/30/20 20:00 98.2 77 16 144/71 (95) 100 01/30/20 20:00 Mechanical Ventilator Mechanical Ventilator 01/30/20 20:00 40 01/30/20 19:43 74 01/30/20 19:02 82 21 40 01/30/20 18:23 133/65 01/30/20 18:23 133/65 01/30/20 18:23 71 133/65 01/30/20 16:00 Mechanical Ventilator Mechanical Ventilator 01/30/20 16:00 40 01/30/20 16:00 98.0 73 19 140/67 (91) 100 01/30/20 16:00 71 01/30/20 15:10 73 24 40 Intake and Output 01/30/20 01/31/20 19:00 07:00 Intake Total 210 ml 400 ml Output Total 2000 ml 200 ml Balance -1790 ml 200 ml Free Water 60 ml IV Total 110 ml Tube Feeding 40 ml 400 ml Output Urine Total 200 ml Hemodialysis UF 2000 ml # Bowel Movements 2 3 Laboratory Tests 01/31/20 00:25: POC Whole Blood Glucose 95 01/31/20 03:00: White Blood Count 6.9, Red Blood Count 2.97L, Hemoglobin 8.6L, Hematocrit 25.4L, Mean Corpuscular Volume 85, Mean Corpuscular Hemoglobin 28.8, Mean Corpuscular Hemoglobin Concent 33.7, Red Cell Distribution Width 14.4, Platelet Count 291, Mean Platelet Volume 6.7, Neutrophils (%) (Auto) 72.3, Lymphocytes (%) (Auto) 19.1L, Monocytes (%) (Auto) 7.1, Eosinophils (%) (Auto) 0.8, Basophils (%) (Auto) 0.7, Hepatitis B Surface Antigen [Pending], Hepatitis B Surface Antibody, Quant [Pending], Hepatitis C Antibody [Pending] 01/31/20 11:19: POC Whole Blood Glucose 91 Height (Feet): 5 Height (Inches): 6.00 Weight (Pounds): 150 General Appearance: no apparent distress EENT: other - Trach and vent Cardiovascular: normal rate Respiratory/Chest: decreased breath sounds Abdomen: soft Johnny Houston MD Jan 31, 2020 14:25
[2020-01-31 16:00] VITALS: BP 143/64
[2020-01-31] MEDS: Amantadine 100mg cap GT SCH (18:01)
--- NOTE | 2020-01-31 19:30 | NUR ---
NURSE HAND-OFF REPORT: Important Events on Shift: Patient Status: Stable Diet: Nepro 40 ml/hr Pending Orders: None Pending Results/Labs:None Pending MD notification:None Latest Vital Signs: Temperature 98.6 , Pulse 85 , B/P 135 /68 , Respiratory Rate 23 , O2 SAT 100 , Mechanical Ventilator, O2 Flow Rate . Vital Sign Comment: EKG Rhythm: Sinus Rhythm Rhythm change?: N MD Notified?: Gabriel Willams MD Response: Order Received& Read Back Latest [place] Fall Score: 70 Fall Risk: High Risk Safety Measures: Call light Within Reach, Bed Alarm Zone 1, Side Rails Side Rails x3, Bed position Low and Locked. Fall Precautions: Yellow Socks Report given to ERASMO Bowden.
--- NOTE | 2020-01-31 19:40 | NUR ---
NURSE NOTES: Received report from ERASMO Sen. Pt is awake, non-verbal. No signs of cardiac/respiratory distress, no signs of pain. O2 saturation at 99% on Shiley 6, AC 14, TV 500, FiO2 40%, PEEP 5. GT running Nepro 40cc/hr, dressing intact and dry, no residuals noted, flushes well. Norman drains well to gravity with dark raul urine. low urine output noted. no signs of hematuria. Skin issues noted. Pt has R FA 20g and L Wrist 22g flushes well and asymptomatic. L femoral non-tunneled bob cath intact with no signs of bleeding. Code status, isolation precautions, and safety risks noted and reinforced. HOB elevated, side rails x3, call light within reach, bed alarmed, locked, and in lowest position. Will continue to monitor. Will continue plan of care.
[2020-01-31 20:00] VITALS: BP 146/64
[2020-01-31] MEDS: Dyna-Hex 2% Top Sol 2oz TOPIC SCH (20:33)
[2020-01-31] MEDS: Epoetin Alfa-EPBX(ESRD on dialysis)10,000 unit/ml vial SUBQ SCH (21:19)
--- NOTE | 2020-01-31 21:30 | NUR ---
NURSE NOTES: Pt is sleeping, no signs of pain. Vital stable and no signs of distress noted. Will continue to monitor.
[2020-02-01] VITALS: BP 131/74
--- NOTE | 2020-02-01 03:50 | NUR ---
NURSE NOTES: Pt is awake, appears to be in pain, facial grimacing noted, not reassured by touch. [place] given. Will reassess in 30 minutes.
[2020-02-01 04:00] VITALS: BP 136/89
[2020-02-01] MEDS: HYDROcodone/Acetamin 5/325 tab GT PRN (04:22)
--- NOTE | 2020-02-01 04:29 | Cardiology Progress Note ---
Subjective DATE OF SERVICE: Jan 31, 2020 Remains in atrial fibrillation; rates controlled. Occasional PVC's - non- sustained BP range stable Full vent support via trach s/p left thorocentesis 01/22/20 Low hemoglobin; on epogen Objective Last 24 Hour Vital Signs Date Time Temp Pulse Resp B/P (MAP) Pulse Ox O2 Delivery O2 Flow Rate FiO2 02/01/20 03:00 79 19 Mechanical Ventilator 40 02/01/20 00:00 Mechanical Ventilator Mechanical Ventilator 02/01/20 00:00 97.9 73 19 131/74 (93) 96 01/31/20 23:59 72 01/31/20 23:41 131/73 01/31/20 22:48 75 14 100 Mechanical Ventilator 40 72 14 40 01/31/20 20:34 88 146/64 01/31/20 20:00 98.2 88 20 146/64 (91) 100 01/31/20 20:00 Mechanical Ventilator Mechanical Ventilator 01/31/20 20:00 40 01/31/20 19:50 88 19 40 01/31/20 19:34 90 01/31/20 17:35 135/68 01/31/20 17:05 143/64 01/31/20 17:05 85 143/64 01/31/20 16:00 98.6 85 23 143/64 (90) 100 01/31/20 16:00 Mechanical Ventilator Mechanical Ventilator 01/31/20 16:00 87 01/31/20 16:00 40 01/31/20 15:04 84 21 40 01/31/20 12:23 137/75 01/31/20 12:00 77 01/31/20 12:00 40 01/31/20 12:00 Mechanical Ventilator Mechanical Ventilator 01/31/20 11:54 97.7 75 21 142/62 (88) 95 01/31/20 11:41 125/76 01/31/20 11:18 75 20 98 Mechanical Ventilator 40 76 20 40 01/31/20 09:44 88 139/60 01/31/20 08:29 146/63 01/31/20 08:29 84 146/63 01/31/20 08:00 78 01/31/20 08:00 99.1 84 21 146/63 (90) 95 01/31/20 08:00 Mechanical Ventilator Mechanical Ventilator 01/31/20 08:00 40 01/31/20 07:12 84 19 40 01/31/20 05:17 146/72 ROS: unchanged for 01/17/20 HEENT: Mechanically Ventilated, Thick Trach secretions RHYTHM: Afib LUNGS: bilateral rhonchi, trach site clean CARDIAC: normal S1 and S2, irregularly irregular ABDOMEN: normal bowel sounds, non tender, soft, G-Tube intact EXTREMITIES: normal inspection, trace edema Laboratory Tests Test 01/31/20 11:19 01/31/20 18:19 01/31/20 23:21 POC Whole Blood Glucose 91 MG/DL (74-106) 93 MG/DL (74-106) 93 MG/DL (74-106) Assessment/Plan Assessment/Plan Chronic respiratory failure with trach Severe sepsis PAFib with rapid ventric response. Ischemic cardiomyopathy - hx CABG and s/p NSTEMI in Dec 2019. Conduction system disease of the heart Hx of permanent pacemaker explant Acute on chronic systolic and diastolic CHF Pleural effusion Anemia Hypertension/HHD with labile BP. Avoid beta flori therapy based on risk of bradycardia. Anti-failure and anti-anginal regimen with titration Vent support Abx per ID Continuous cardiac monitoring Anti-HTN regimen being titrated. Transfuse for further drop in hemoglobin Deni Willams MD Feb 01, 2020 04:29
[2020-02-01 04:42] LABS: BASOPHILS % (AUTO) 0.9 % (0.0-2.0); EOSINOPHILS % (AUTO) 0.8 % (0.0-3.0); HEMATOCRIT 24.8 % (37.0-47.0); HEMOGLOBIN 8.5 G/DL (12.0-16.0); LYMPHOCYTES % (AUTO) 21.7 % (20.0-45.0); MEAN CORPUSCULAR VOLUME 84 FL (80-99); MONOCYTES % (AUTO) 7.1 % (1.0-10.0); NEUTROPHILS % (AUTO) 69.5 % (45.0-75.0); PLATELET COUNT 335 K/UL (150-450); RED BLOOD COUNT 2.96 M/UL (4.20-5.40); WHITE BLOOD COUNT 7.3 K/UL (4.8-10.8)
[2020-02-01 04:53] LABS: ALBUMIN 1.8 G/DL (3.4-5.0); ALBUMIN/GLOBULIN RATIO 0.4 (1.0-2.7); BILIRUBIN,TOTAL 0.4 MG/DL (0.2-1.0); CALCIUM 7.9 MG/DL (8.5-10.1); CREATININE 3.5 MG/DL (0.55-1.30); POTASSIUM 3.5 MMOL/L (3.5-5.1)
--- NOTE | 2020-02-01 05:30 | NUR ---
NURSE NOTES: Cleaned pt, changed linens, pt tolerated procedure well.
[2020-02-01] MEDS: HydrALAZINE 25mg tab GT SCH ×3 (05:41→18:18)
--- NOTE | 2020-02-01 06:00 | NUR ---
NURSE NOTES: Accucheck 67. Gave orange juice via GT. Reassessed and blood sugar now 91. Will continue to monitor.
--- NOTE | 2020-02-01 07:30 | NUR ---
NURSE NOTES: Received report from ERASMO kirkland.
--- NOTE | 2020-02-01 07:30 | NUR ---
NURSE HAND-OFF REPORT: Important Events on Shift:[Hypoglycemic] Patient Status: [Stable] Diet: [Nepro 40ml/hr] Pending Orders: [NA] Pending Results/Labs:[NA] Pending MD notification:[NA] Latest Vital Signs: Temperature 98.2 , Pulse 82 , B/P 136 /89 , Respiratory Rate 19 , O2 SAT 96 , Mechanical Ventilator, O2 Flow Rate . Vital Sign Comment: [Stable] EKG Rhythm: Sinus Rhythm Rhythm change?: N MD Notified?: Gabriel Willams MD Response: Order Received& Read Back Latest [place] Fall Score: 70 Fall Risk: High Risk Safety Measures: Call light Within Reach, Bed Alarm Zone 1, Side Rails Side Rails x3, Bed position Low and Locked. Fall Precautions: Yellow Socks Report given to [ERASMO Kaba].
--- NOTE | 2020-02-01 07:33 | Infectious Diseases Prog Note ---
Assessment/Plan 49yo F with: AF Sepsis Leukocytosis Hypoxia on vent Pneumonia c/b L pleural effusion (recurrent, prior determined to be transudative) - s/p thora 01/21, 1050cc removed Volume overload, BNP >35,0000, likely 2/2 progressive CKD --> ESRD ?Pancreatitis, Lipase >2000 Acute anemia to 5s CONS bacteremia, ?contaminant Aflutter w/ RVR 01/13 BCx 2/2 +S. epi COVID PCR neg Flu neg CXR: Large left pleural effusion. Bilateral interstitial and airspace infiltrates versus edema MRSA nares neg 01/16 BCx NTD 01/17 BCx /2 +Staph auricularis (skin colonizer) 01/18 Resp cx +MDR CRE PsA (S-gent, I-colistin, R-polyB) 01/18 C.dif neg 01/18 CXR: Similar opacification of the left hemithorax likely representing combination of pleural effusion with atelectasis versus pneumonia/edema. Decreased but persistent hazy opacity throughout the right lung may represent edema versus infectious/inflammatory process. 01/20 BCx NTD 01/21 L thora 1050 cc removed, cx NTD 01/25 Wound cx from Gtube site +CRE Kleb pna (arnett-R) and MDR PsA (colonizers) 01/26 CT A/P: Limited exam, due to severe diffuse anasarca. Ascites. Bilateral pleural effusions. Basilar pulmonary atelectatic changes and consolidation. Gastrostomy. Atrophic left kidney with a nephroureteral stents again demonstrated. Possible retrococcygeal decubitus changes. Correlate with clinical findings, consider MRI if there is concern for sacral osteomyelitis. Right hip intertrochanteric fracture, also previously demonstrated. Left femoral dialysis catheter. Nonspecific right lobe liver lesion is unchanged, not well- demonstrated. ctasia bordering on aneurysmal dilatation and possible chronic dissection of the distal thoracic aorta, also previously described. JAVIER on CKD On previous admission Sep-Oct 2019 required HD for short period Going to start HD this admission again R/o COVID / COVID PCR neg 12/29 neg at [facility] per report H/o UTI 10/15 u/a wbc 30-40, nit neg, leuk +3; ucx ESBL P. mirablis, ESBL M. morganii //20 u/a wbc tnct, nit neg, leuk +3; ucx >100k MDR P. stuarti (S Ceftriaxone, Meropenem) 10/07 u/a wbc tnct, nit neg, leuk ; ucx >100k VRE 10/15/19 u/a wbc tnct; ucx >100k ESBL P. stuarti (S ertapenem, aztreonam) H/o transudative pleural effusion 11/28 Sp Thora (w: 169, PMN: 2%, L: 49% , LDH: 57, prot 2.5); cx Neg H/o PNA 10/15/19 Resp cx ESBL P. mirabilis, MDR P.a. (S only to Gent) 09/22 Resp cx + MDR PsA (S-gent; I-colistin; R-levofloxacin, Zosyn, angelo) 09/16/19 Sp cx ESBL P. mirablis H/o PPM site (pocket) infection and pocket abscess 2ry to S. epi-11/2018, sp >6weeks IV vancomycin 11/27 SP ABBIE: no evidence for vegetation on any of the valves 11/26/18 SP PPM removal: OR findings:The fibrous capsule enclosing the generator was then opened and there was a [id number] amount of yellowish fluid drainage. The generator was then removed.Atrial and ventricular leads were detached. The necrotic tissue of the pocket was then removed and the pocket was flushed with an antibiotic solution. Capsule, wound tissue and lead tip cx: Neg 2d echo: no vegetation seen US chest: 4.6 x 3.4 x 0.9 cm hypoechoic/anechoic area overlying left chest pacemaker power pack. This could represent either a discrete fluid collection or a focal area of very edematous tissue. Infected fluid pocket also possible. 11/18 Bcx 3/4 S. epi; 11/20 Bcx neg; 11/24 Bcx Neg; 11/27 Bcx Neg CAD s/p CABG GERD/gastritis Afib HTN Dysphagia sp GT Aortic dissection s/p repair 2017 S/p PPM Parkinson's Disease Schizophrenia Anxiety COPD Chronic resp failure s/p trach Hx of tracheal bleeding [place] resident ([facility]) VRE and MRSA colonized Plan: Stop inhaled tobramycin #10/ given MDR PsA in resp cx Stop meropenem #/ Monitor off abx Wound not treat CRE Kleb pna nor MDR PsA from G-tube cx, likely colonizer and no signs of active infection in that area F/u Micro lab to perform sensi on MDR PsA from resp cx on Avycaz and Zerbaxa 01/31 SP angelo/inh tobra #10 for pna 01/23 SP vanco IV #10 given CONS/GPC bacteremia 01/16 SP Zosyn #2 01/14 SP dex 10mg in ED 12/10 SP IV Gentamycin #10 12/07 SP Meropenem #10 12/01 SP IV Vancomycin #5 11/28 Sp Cefepime #2 and IV Gentamycin x1 Monitor CBC/CMP Monitor temp curve, hemodynamics Monitor resp status D/w RN Thank you for this consult. [facility] will continue to follow. Subjective Allergies: Coded Allergies: No Known Allergies (Unverified , 10/10/17) AF NAD on vent 40% PEEP 5 WBC 7.3 Objective Last 24 Hour Vital Signs Date Time Temp Pulse Resp B/P (MAP) Pulse Ox O2 Delivery O2 Flow Rate FiO2 02/01/20 05:41 136/89 02/01/20 04:00 98.2 82 19 136/89 (105) 96 02/01/20 04:00 Mechanical Ventilator Mechanical Ventilator 02/01/20 04:00 40 02/01/20 03:28 78 02/01/20 03:00 79 19 Mechanical Ventilator 40 02/01/20 00:00 Mechanical Ventilator Mechanical Ventilator 02/01/20 00:00 97.9 73 19 131/74 (93) 96 01/31/20 23:59 72 01/31/20 23:41 131/73 01/31/20 22:48 75 14 100 Mechanical Ventilator 40 72 14 40 01/31/20 20:34 88 146/64 01/31/20 20:00 98.2 88 20 146/64 (91) 100 01/31/20 20:00 Mechanical Ventilator Mechanical Ventilator 01/31/20 20:00 40 01/31/20 19:50 88 19 40 01/31/20 19:34 90 01/31/20 17:35 135/68 01/31/20 17:05 143/64 01/31/20 17:05 85 143/64 01/31/20 16:00 98.6 85 23 143/64 (90) 100 01/31/20 16:00 Mechanical Ventilator Mechanical Ventilator 01/31/20 16:00 87 01/31/20 16:00 40 01/31/20 15:04 84 21 40 01/31/20 12:23 137/75 01/31/20 12:00 77 01/31/20 12:00 40 01/31/20 12:00 Mechanical Ventilator Mechanical Ventilator 01/31/20 11:54 97.7 75 21 142/62 (88) 95 01/31/20 11:41 125/76 01/31/20 11:18 75 20 98 Mechanical Ventilator 40 76 20 40 01/31/20 09:44 88 139/60 01/31/20 08:29 146/63 01/31/20 08:29 84 146/63 01/31/20 08:00 78 01/31/20 08:00 99.1 84 21 146/63 (90) 95 01/31/20 08:00 Mechanical Ventilator Mechanical Ventilator 01/31/20 08:00 40 Height (Feet): 5 Height (Inches): 6.00 Weight (Pounds): 150 Gen: NAD HEENT: NCAT, +trach CV: RRR Pulm: CTAB on vent Abd: Non-distended, +PEG with skin intact wo erythema or discharge, but brownish discharge on dressing Ext: No c/c/e Skin: No visible rashes Neuro: Awake, minimally interactive Lines: L fem HD cath Laboratory Tests Test 01/31/20 11:19 01/31/20 18:19 01/31/20 23:21 02/01/20 03:00 POC Whole Blood Glucose 91 MG/DL (74-106) 93 MG/DL (74-106) 93 MG/DL (74-106) White Blood Count 7.3 K/UL (4.8-10.8) Red Blood Count 2.96 M/UL (4.20-5.40) L Hemoglobin 8.5 G/DL (12.0-16.0) L Hematocrit 24.8 % (37.0-47.0) L Mean Corpuscular Volume 84 FL (80-99) Mean Corpuscular Hemoglobin 28.8 PG (27.0-31.0) Mean Corpuscular Hemoglobin Concent 34.3 G/DL (32.0-36.0) Red Cell Distribution Width 14.0 % (11.6-14.8) Platelet Count 335 K/UL (150-450) Mean Platelet Volume 7.0 FL (6.5-10.1) Neutrophils (%) (Auto) 69.5 % (45.0-75.0) Lymphocytes (%) (Auto) 21.7 % (20.0-45.0) Monocytes (%) (Auto) 7.1 % (1.0-10.0) Eosinophils (%) (Auto) 0.8 % (0.0-3.0) Basophils (%) (Auto) 0.9 % (0.0-2.0) Sodium Level 137 MMOL/L (136-145) Potassium Level 3.5 MMOL/L (3.5-5.1) Chloride Level 100 MMOL/L (98-107) Carbon Dioxide Level 27 MMOL/L (21-32) Anion Gap 10 mmol/L (5-15) Blood Urea Nitrogen 84 mg/dL (7-18) H Creatinine 3.5 MG/DL (0.55-1.30) H Estimat Glomerular Filtration Rate 14.0 mL/min (>60) Glucose Level 67 MG/DL (74-106) L Calcium Level 7.9 MG/DL (8.5-10.1) L Phosphorus Level 4.6 MG/DL (2.5-4.9) Total Bilirubin 0.4 MG/DL (0.2-1.0) Aspartate Amino Transf (AST/SGOT) 26 U/L (15-37) Alanine Aminotransferase (ALT/SGPT) 12 U/L (12-78) Alkaline Phosphatase 167 U/L (46-116) H Total Protein 6.8 G/DL (6.4-8.2) Albumin 1.8 G/DL (3.4-5.0) L Globulin 5.0 g/dL Albumin/Globulin Ratio 0.4 (1.0-2.7) L Test 02/01/20 05:14 02/01/20 05:40 POC Whole Blood Glucose 67 MG/DL (74-106) L 91 MG/DL (74-106) Current Medications Medications (Trade) Dose Ordered Sig/Penny Route PRN Reason Start Time Stop Time Status Last Admin Dose Admin Acetaminophen (Tylenol) 500 mg Q6H PRN GT FEVER 01/21/20 20:45 02/20/20 20:44 01/29/20 02:01 Acetaminophen/ Hydrocodone Bitart ([place] 5/325) 1 tab Q6H PRN GT Moderate Breakthru Pain (5-7) 01/31/20 07:45 02/07/20 07:44 02/01/20 04:22 Amantadine HCl (Symmetrel) 100 mg TWICE A DAY GT 01/31/20 18:00 03/01/20 17:59 01/31/20 18:01 Amlodipine Besylate (Norvasc) 5 mg BID GT 01/22/20 18:00 02/20/20 15:44 01/31/20 17:05 Aspirin (ASA) 81 mg DAILY GT 01/20/20 09:00 03/05/20 08:59 01/31/20 08:29 Atorvastatin Calcium (Lipitor) 10 mg BEDTIME GT 01/17/20 21:00 04/16/20 20:59 01/31/20 20:33 Chlorhexidine Gluconate (Ling-Hex 2%) 1 applic DAILY@1999 TOPIC 01/17/20 20:00 04/16/20 19:59 01/31/20 20:33 Dextrose (Dextrose 50%) 25 ml Q30M PRN IV Hypoglycemia 01/15/20 22:15 04/14/20 22:14 Dextrose (Dextrose 50%) 50 ml Q30M PRN IV Hypoglycemia 01/15/20 22:15 04/14/20 22:14 01/22/20 17:54 Docusate Sodium (Colace) 200 mg BIDPRN PRN GT Constipation 01/31/20 07:45 03/01/20 07:44 01/31/20 20:34 Epoetin Gelacio (Epoetin Gelacio(ESRD on dialysis)) 10,000 unit MON-MON-MON SUBQ 01/27/20 21:00 04/26/20 20:59 01/31/20 21:19 Hydralazine HCl (Apresoline) 25 mg Q6HR GT 01/26/20 18:15 04/25/20 18:14 02/01/20 05:41 Isosorbide Dinitrate (Isordil) 20 mg TID GT 01/25/20 09:00 02/19/20 08:59 01/31/20 17:05 Lansoprazole (Prevacid) 30 mg BID GT 01/19/20 18:00 02/18/20 17:59 01/31/20 17:05 Meropenem 500 mg/ Sodium Chloride 55 ml @ 110 mls/hr Q12HR IVPB 01/27/20 09:00 02/01/20 23:59 01/31/20 20:35 Metoclopramide HCl (Reglan) 5 mg Q6H PRN IVP Nausea & Vomiting 01/15/20 22:15 02/14/20 22:14 Metoprolol Tartrate (Lopressor) 25 mg Q12HR ORAL 01/27/20 21:00 04/22/20 20:59 01/31/20 20:34 Sodium Hypochlorite (Dakin's Quarter Strength) 1 applic DAILY TOPIC 01/30/20 09:00 02/29/20 08:59 01/31/20 08:30 Tobramycin Sulfate (Nebcin) 300 mg Q12HRT INH 01/23/20 22:00 02/01/20 21:59 01/31/20 22:48 Zinc Oxide (Zinc Oxide) 1 applic TIDPRN PRN TOPIC diogenes GT 01/16/20 13:15 04/15/20 13:14 01/16/20 14:55 Ro Pack M.D. Feb 01, 2020 07:33
[2020-02-01 08:00] VITALS: BP 124/53
[2020-02-01] MEDS: Amantadine 100mg cap GT SCH ×2 (08:41→18:17)
[2020-02-01] MEDS: Aspirin Baby 81mg GT SCH (08:41)
[2020-02-01] MEDS: Dakin's 0.125% Soln (Quarter Strength) 16oz TOPIC SCH (08:43)
--- NOTE | 2020-02-01 09:00 | NUR ---
NURSE NOTES: Patient is in bed, no signs of grimacing and distress noted. Patient has a GT feeding, patent, intact, running nepro 40 mL/hr, tolerating well. Patient has a trache s6 with settigs AC 14, TV 500, FiO2 40%, PEEP 5, tolerating well. Patient has a raymond for retention patent, intact, draining dark raul urine. Patient has a R FA 22 g patent, intact, saline locked, and a L wrist 18 g patent, intact, saline locked. patient also has a L femoral non tunnel arden cath for hemodialysis, patent, intact. HOB elevated, bed is on lowest position, locked, side rails up, call light within reach. Patient will continue to be monitored.
[2020-02-01 12:00] VITALS: BP 112/47
--- NOTE | 2020-02-01 12:29 | Nephrology Progress Note ---
Assessment/Plan Problem List: (1) ARF (acute renal failure) (2) Pacemaker (3) Sepsis (4) Hyponatremia Assessment (1) JAVIER (acute kidney injury) (2) Renal failure (ARF), acute on chronic (3) Feeding by G-tube (4) Tracheostomy in place (5) Electrolyte imbalance, hyponatremia (6) Anemia, severe (7) Respiratory failure, acute and chronic (8) Elevated lipase, pancreatitis (9) Elevated troponin I (10) Sepsis Plan January 31: Last dialysis January 29. Labs reviewed. No need for dialysis today. Continue per current management. Hemodialysis as needed. Will check renal parameters and chemistries tomorrow. January 30: Patient was dialyzed yesterday. No labs drawn today. Continue to monitor renal parameters and dialyze as needed. Continue per consultants and PMD. January 29: Patient due for dialysis today. Today's can panel reviewed. Continue to monitor renal parameters and dialysis as needed. January 28: Patient last dialyzed January 26. No labs drawn today. Will order dialysis tomorrow. Check chemistry panel tomorrow. Continue per joseluis lara. January 27: Patient was dialyzed yesterday . Labs were reviewed. Electrolytes within normal limit. Blood pressure stable. January 26: When visited the patient earlier today the patient was on dialysis. Tolerating well. Labs reviewed. Blood pressure stable. January 25: Dialysis for tomorrow. Labs reviewed. Hemoglobin remains low. Will adjust blood pressure medication. Hydralazine added to the regimen January 24: Last dialyzed January 22. Labs reviewed. Status quo. Will dialyze as needed. Low hemoglobin noted. Transfusion per PMD decision. Epogen started. \January 23: Dialyzed yesterday. Today's labs reviewed. Continue to monitor renal parameters and arrange for dialysis as needed. Continue per PMD. January 22: Seen earlier during dialysis. Labs reviewed. Medication list reviewed. Continue current management. January 21: Labs reviewed. Medication list reviewed. Next hemodialysis tomorrow. Blood pressure medication adjusted. January 20: Dialyzed yesterday. Labs reviewed. Continue per current management. Dialysis as needed. Add Norvasc to blood pressure regimen January 19: Due for dialysis today. Labs reviewed. Continue her current management. Continue to monitor renal parameters and electrolytes. January 18: Dialyzed yesterday. Labs reviewed. Renal parameters electrolytes much improved. Dialysis again tomorrow. Continue rest. January 17: Dialyzed this morning. Labs reviewed. Renal parameters and electrolyte abnormalities improved. Discussed with RN. Continue per consultants. January 16: Dialyzed yesterday. Labs improved. Next dialysis tomorrow. Continue per consultants. January 15: Patient to have dialysis catheter. Emergency dialysis for correction of uremia and electrolyte imbalances Antibiotics Transfusion Continue to monitor renal parameters Per orders Discussed with RN Subjective ROS Limited/Unobtainable: Yes Objective Objective Last 24 Hour Vital Signs Date Time Temp Pulse Resp B/P (MAP) Pulse Ox O2 Delivery O2 Flow Rate FiO2 02/01/20 12:20 112/47 02/01/20 12:00 112/47 02/01/20 08:42 124/53 02/01/20 08:42 76 124/53 02/01/20 08:41 76 124/53 02/01/20 08:00 Mechanical Ventilator Mechanical Ventilator 02/01/20 08:00 40 02/01/20 08:00 98.7 74 25 124/53 (76) 96 02/01/20 07:40 70 02/01/20 07:10 72 23 40 02/01/20 05:41 136/89 02/01/20 04:00 98.2 82 19 136/89 (105) 96 02/01/20 04:00 Mechanical Ventilator Mechanical Ventilator 02/01/20 04:00 40 02/01/20 03:28 78 02/01/20 03:00 79 19 Mechanical Ventilator 40 02/01/20 00:00 Mechanical Ventilator Mechanical Ventilator 02/01/20 00:00 97.9 73 19 131/74 (93) 96 01/31/20 23:59 72 01/31/20 23:41 131/73 01/31/20 22:48 75 14 100 Mechanical Ventilator 40 72 14 40 01/31/20 20:34 88 146/64 01/31/20 20:00 98.2 88 20 146/64 (91) 100 01/31/20 20:00 Mechanical Ventilator Mechanical Ventilator 01/31/20 20:00 40 01/31/20 19:50 88 19 40 01/31/20 19:34 90 01/31/20 17:35 135/68 01/31/20 17:05 143/64 01/31/20 17:05 85 143/64 01/31/20 16:00 98.6 85 23 143/64 (90) 100 01/31/20 16:00 Mechanical Ventilator Mechanical Ventilator 01/31/20 16:00 87 01/31/20 16:00 40 01/31/20 15:04 84 21 40 Intake and Output 01/31/20 02/01/20 19:00 07:00 Intake Total 780 ml 530 ml Output Total 180 ml 100 ml Balance 600 ml 430 ml Free Water 300 ml 50 ml Tube Feeding 480 ml 480 ml Output Urine Total 180 ml 100 ml # Bowel Movements 3 Laboratory Tests 01/31/20 18:19: POC Whole Blood Glucose 93 01/31/20 23:21: POC Whole Blood Glucose 93 02/01/20 03:00: White Blood Count 7.3, Red Blood Count 2.96L, Hemoglobin 8.5L, Hematocrit 24.8L, Mean Corpuscular Volume 84, Mean Corpuscular Hemoglobin 28.8, Mean Corpuscular Hemoglobin Concent 34.3, Red Cell Distribution Width 14.0, Platelet Count 335, Mean Platelet Volume 7.0, Neutrophils (%) (Auto) 69.5, Lymphocytes (%) (Auto) 21.7, Monocytes (%) (Auto) 7.1, Eosinophils (%) (Auto) 0.8, Basophils (%) (Auto) 0.9, Sodium Level 137, Potassium Level 3.5, Chloride Level 100, Carbon Dioxide Level 27, Anion Gap 10, Blood Urea Nitrogen 84H, Creatinine 3.5H, Estimat Glomerular Filtration Rate 14.0, Glucose Level 67L, Calcium Level 7.9L, Phosphorus Level 4.6, Total Bilirubin 0.4, Aspartate Amino Transf (AST/SGOT) 26, Alanine Aminotransferase (ALT/SGPT) 12, Alkaline Phosphatase 167H, Total Protein 6.8, Albumin 1.8L, Globulin 5.0, Albumin/Globulin Ratio 0.4L 02/01/20 05:14: POC Whole Blood Glucose 67L 02/01/20 05:40: POC Whole Blood Glucose 91 Height (Feet): 5 Height (Inches): 6.00 Weight (Pounds): 150 General Appearance: no apparent distress EENT: other - Trach to vent Cardiovascular: normal rate Respiratory/Chest: decreased breath sounds Abdomen: distended Johnny Houston MD Feb 01, 2020 12:29
--- NOTE | 2020-02-01 14:34 | General Progress Note ---
Subjective Allergies: Coded Allergies: No Known Allergies (Unverified , 10/10/17) Subjective Above noted non communicative Tolerating TF Objective Last 24 Hour Vital Signs Date Time Temp Pulse Resp B/P (MAP) Pulse Ox O2 Delivery O2 Flow Rate FiO2 02/01/20 12:20 112/47 02/01/20 12:00 112/47 02/01/20 12:00 98.2 63 16 112/47 (68) 94 02/01/20 11:15 73 24 40 02/01/20 08:42 124/53 02/01/20 08:42 76 124/53 02/01/20 08:41 76 124/53 02/01/20 08:00 Mechanical Ventilator Mechanical Ventilator 02/01/20 08:00 40 02/01/20 08:00 98.7 74 25 124/53 (76) 96 02/01/20 07:40 70 02/01/20 07:10 72 23 40 02/01/20 05:41 136/89 02/01/20 04:00 98.2 82 19 136/89 (105) 96 02/01/20 04:00 Mechanical Ventilator Mechanical Ventilator 02/01/20 04:00 40 02/01/20 03:28 78 02/01/20 03:00 79 19 Mechanical Ventilator 40 02/01/20 00:00 Mechanical Ventilator Mechanical Ventilator 02/01/20 00:00 97.9 73 19 131/74 (93) 96 01/31/20 23:59 72 01/31/20 23:41 131/73 01/31/20 22:48 75 14 100 Mechanical Ventilator 40 72 14 40 01/31/20 20:34 88 146/64 01/31/20 20:00 98.2 88 20 146/64 (91) 100 01/31/20 20:00 Mechanical Ventilator Mechanical Ventilator 01/31/20 20:00 40 01/31/20 19:50 88 19 40 01/31/20 19:34 90 01/31/20 17:35 135/68 01/31/20 17:05 143/64 01/31/20 17:05 85 143/64 01/31/20 16:00 98.6 85 23 143/64 (90) 100 01/31/20 16:00 Mechanical Ventilator Mechanical Ventilator 01/31/20 16:00 87 01/31/20 16:00 40 01/31/20 15:04 84 21 40 Intake and Output 01/31/20 02/01/20 19:00 07:00 Intake Total 780 ml 530 ml Output Total 180 ml 100 ml Balance 600 ml 430 ml Free Water 300 ml 50 ml Tube Feeding 480 ml 480 ml Output Urine Total 180 ml 100 ml # Bowel Movements 3 Laboratory Tests 01/31/20 18:19: POC Whole Blood Glucose 93 01/31/20 23:21: POC Whole Blood Glucose 93 02/01/20 03:00: White Blood Count 7.3, Red Blood Count 2.96L, Hemoglobin 8.5L, Hematocrit 24.8L, Mean Corpuscular Volume 84, Mean Corpuscular Hemoglobin 28.8, Mean Corpuscular Hemoglobin Concent 34.3, Red Cell Distribution Width 14.0, Platelet Count 335, Mean Platelet Volume 7.0, Neutrophils (%) (Auto) 69.5, Lymphocytes (%) (Auto) 21.7, Monocytes (%) (Auto) 7.1, Eosinophils (%) (Auto) 0.8, Basophils (%) (Auto) 0.9, Sodium Level 137, Potassium Level 3.5, Chloride Level 100, Carbon Dioxide Level 27, Anion Gap 10, Blood Urea Nitrogen 84H, Creatinine 3.5H, Estimat Glomerular Filtration Rate 14.0, Glucose Level 67L, Calcium Level 7.9L, Phosphorus Level 4.6, Total Bilirubin 0.4, Aspartate Amino Transf (AST/SGOT) 26, Alanine Aminotransferase (ALT/SGPT) 12, Alkaline Phosphatase 167H, Total Protein 6.8, Albumin 1.8L, Globulin 5.0, Albumin/Globulin Ratio 0.4L 02/01/20 05:14: POC Whole Blood Glucose 67L 02/01/20 05:40: POC Whole Blood Glucose 91 02/01/20 12:31: POC Whole Blood Glucose [Pending] Height (Feet): 5 Height (Inches): 6.00 Weight (Pounds): 150 Objective NCAT (+) trach Coarse BS RR soft ND NT no edema Assessment/Plan Assessment/Plan: Assessment/Plan (1) Hx of CABG (2) History of tracheostomy (3) Dysphagia, s/p PEG (percutaneous endoscopic gastrostomy) status (4) S/P aortic dissection repair (5) Renal failure (6) Anemia Assessment/Plan: stable H&H repeat stool ob GT Feeding HD per nephrology persistent elevated lipase\ ct reviewed Edmund Farris MD Feb 01, 2020 14:34
[2020-02-01 16:00] VITALS: BP 123/67
--- NOTE | 2020-02-01 16:00 | NUR ---
NURSE NOTES: Tried uploading wound pictures but the system is down even on other nurses. per IT, 8pm or 9pm will be the perfect time to upload. Will be endorsed to next shift nurse.
--- NOTE | 2020-02-01 16:03 | Pulmonology Progress Note ---
Subjective ROS Limited/Unobtainable: Yes Interval Events: s/p HD Constitutional: Reports: no symptoms HEENT: Repors: no symptoms Respiratory: Reports: no symptoms Cardiovascular: Reports: no symptoms Gastrointestinal/Abdominal: Reports: no symptoms Allergies: Coded Allergies: No Known Allergies (Unverified , 10/10/17) All Systems: reviewed and negative except above Objective Last 24 Hour Vital Signs Date Time Temp Pulse Resp B/P (MAP) Pulse Ox O2 Delivery O2 Flow Rate FiO2 02/01/20 12:20 112/47 02/01/20 12:00 40 02/01/20 12:00 Mechanical Ventilator Mechanical Ventilator 02/01/20 12:00 112/47 02/01/20 12:00 98.2 63 16 112/47 (68) 94 02/01/20 11:40 66 02/01/20 11:15 73 24 40 02/01/20 08:42 124/53 02/01/20 08:42 76 124/53 02/01/20 08:41 76 124/53 02/01/20 08:00 Mechanical Ventilator Mechanical Ventilator 02/01/20 08:00 40 02/01/20 08:00 98.7 74 25 124/53 (76) 96 02/01/20 07:40 70 02/01/20 07:10 72 23 40 02/01/20 05:41 136/89 02/01/20 04:00 98.2 82 19 136/89 (105) 96 02/01/20 04:00 Mechanical Ventilator Mechanical Ventilator 02/01/20 04:00 40 02/01/20 03:28 78 02/01/20 03:00 79 19 Mechanical Ventilator 40 02/01/20 00:00 Mechanical Ventilator Mechanical Ventilator 02/01/20 00:00 97.9 73 19 131/74 (93) 96 01/31/20 23:59 72 01/31/20 23:41 131/73 01/31/20 22:48 75 14 100 Mechanical Ventilator 40 72 14 40 01/31/20 20:34 88 146/64 01/31/20 20:00 98.2 88 20 146/64 (91) 100 01/31/20 20:00 Mechanical Ventilator Mechanical Ventilator 01/31/20 20:00 40 01/31/20 19:50 88 19 40 01/31/20 19:34 90 01/31/20 17:35 135/68 01/31/20 17:05 143/64 01/31/20 17:05 85 143/64 Intake and Output 01/31/20 02/01/20 19:00 07:00 Intake Total 780 ml 530 ml Output Total 180 ml 100 ml Balance 600 ml 430 ml Free Water 300 ml 50 ml Tube Feeding 480 ml 480 ml Output Urine Total 180 ml 100 ml # Bowel Movements 3 Objective 01/31 saturating at 100% on vent 01/30/2020 trach no leakage, saturating at 97% on vent. due for transfusion 01/28/2020 trach no leakage, saturating at 99% on vent 01/27/2020 trach site clean, no leakage; saturating 99% on vent 01/21/2020 trach site clean, no leakage noted; currently saturating 98% with AC 14, TV 500 FiO2 50%, PEEP 5. 01/20/2020 tracheostomy site clean, vent dependent patient, no leakage noted General Appearance: no acute distress HEENT: normocephalic, other - trach Respiratory: chest wall non-tender, other - coarse lung sounds Cardiovascular: normal rate, regular rhythm Abdomen: soft, non tender Genitourinary: other - Norman Extremities: other - trace edema Laboratory Tests 01/31/20 18:19: POC Whole Blood Glucose 93 01/31/20 23:21: POC Whole Blood Glucose 93 02/01/20 03:00: White Blood Count 7.3, Red Blood Count 2.96L, Hemoglobin 8.5L, Hematocrit 24.8L, Mean Corpuscular Volume 84, Mean Corpuscular Hemoglobin 28.8, Mean Corpuscular Hemoglobin Concent 34.3, Red Cell Distribution Width 14.0, Platelet Count 335, Mean Platelet Volume 7.0, Neutrophils (%) (Auto) 69.5, Lymphocytes (%) (Auto) 21.7, Monocytes (%) (Auto) 7.1, Eosinophils (%) (Auto) 0.8, Basophils (%) (Auto) 0.9, Sodium Level 137, Potassium Level 3.5, Chloride Level 100, Carbon Dioxide Level 27, Anion Gap 10, Blood Urea Nitrogen 84H, Creatinine 3.5H, Estimat Glomerular Filtration Rate 14.0, Glucose Level 67L, Calcium Level 7.9L, Phosphorus Level 4.6, Total Bilirubin 0.4, Aspartate Amino Transf (AST/SGOT) 26, Alanine Aminotransferase (ALT/SGPT) 12, Alkaline Phosphatase 167H, Total Protein 6.8, Albumin 1.8L, Globulin 5.0, Albumin/Globulin Ratio 0.4L 02/01/20 05:14: POC Whole Blood Glucose 67L 02/01/20 05:40: POC Whole Blood Glucose 91 02/01/20 12:31: POC Whole Blood Glucose [Pending] Current Medications Medications (Trade) Dose Ordered Sig/Penny Route PRN Reason Start Time Stop Time Status Last Admin Dose Admin Acetaminophen (Tylenol) 500 mg Q6H PRN GT FEVER 01/21/20 20:45 02/20/20 20:44 01/29/20 02:01 Acetaminophen/ Hydrocodone Bitart (Drew 5/325) 1 tab Q6H PRN GT Moderate Breakthru Pain (5-7) 01/31/20 07:45 02/07/20 07:44 02/01/20 04:22 Amantadine HCl (Symmetrel) 100 mg TWICE A DAY GT 01/31/20 18:00 03/01/20 17:59 02/01/20 08:41 Amlodipine Besylate (Norvasc) 5 mg BID GT 01/22/20 18:00 02/20/20 15:44 02/01/20 08:42 Aspirin (ASA) 81 mg DAILY GT 01/20/20 09:00 03/05/20 08:59 02/01/20 08:41 Atorvastatin Calcium (Lipitor) 10 mg BEDTIME GT 01/17/20 21:00 04/16/20 20:59 01/31/20 20:33 Chlorhexidine Gluconate (Ling-Hex 2%) 1 applic DAILY@1999 TOPIC 01/17/20 20:00 04/16/20 19:59 01/31/20 20:33 Dextrose (Dextrose 50%) 25 ml Q30M PRN IV Hypoglycemia 01/15/20 22:15 04/14/20 22:14 Dextrose (Dextrose 50%) 50 ml Q30M PRN IV Hypoglycemia 01/15/20 22:15 04/14/20 22:14 01/22/20 17:54 Docusate Sodium (Colace) 200 mg BIDPRN PRN GT Constipation 01/31/20 07:45 03/01/20 07:44 01/31/20 20:34 Epoetin Gelacio (Epoetin Gelacio(ESRD on dialysis)) 10,000 unit MON-WED-MON SUBQ 01/27/20 21:00 04/26/20 20:59 01/31/20 21:19 Hydralazine HCl (Apresoline) 25 mg Q6HR GT 01/26/20 18:15 04/25/20 18:14 02/01/20 05:41 Isosorbide Dinitrate (Isordil) 20 mg TID GT 01/25/20 09:00 02/19/20 08:59 02/01/20 12:20 Lansoprazole (Prevacid) 30 mg BID GT 01/19/20 18:00 02/18/20 17:59 02/01/20 08:41 Metoclopramide HCl (Reglan) 5 mg Q6H PRN IVP Nausea & Vomiting 01/15/20 22:15 02/14/20 22:14 Metoprolol Tartrate (Lopressor) 25 mg Q12HR ORAL 01/27/20 21:00 04/22/20 20:59 02/01/20 08:41 Sodium Hypochlorite (Dakin's Quarter Strength) 1 applic DAILY TOPIC 01/30/20 09:00 02/29/20 08:59 02/01/20 08:43 Zinc Oxide (Zinc Oxide) 1 applic TIDPRN PRN TOPIC diogenes GT 01/16/20 13:15 04/15/20 13:14 01/16/20 14:55 Assessment/Plan Assessment/Plan 1. Large left effusion. - S/p thoracentesis; CXR better - pleural fluid pathology report: negative for malignant cell 2. Chronic respiratory failure. - Continue trach care - Cont AC mode - Currently saturating at 100% 3. Sepsis; improving 4. Anemia - improving - s/p transfusion - on Epogen - repeat stool OB pending per Dr. Mccauley s/p HD on broad-spectrum antibiotics. Pulmonary hygiene. DVT and GI prophylaxes. The care for this patient was discussed with my supervising physician Time spent for this case as approximately 31 minutes Cruz Wilson Feb 01, 2020 16:03 Elijah Stephen MD Feb 01, 2020 16:42
--- NOTE | 2020-02-01 18:00 | NUR ---
NURSE NOTES: Patient desaturates. Called RT and RT changed to FiO2 to 100 and slowly titrates patient down. Now patient is on 80%. Will endorse to the next shift nurse.
--- NOTE | 2020-02-01 18:10 | Surgery Progress Note ---
Surgery Progress Note Subjective Procedure Performed Left femoral temporary hemodialysis catheter insertion Symptoms: other Objective Last 24 Hour Vital Signs Date Time Temp Pulse Resp B/P (MAP) Pulse Ox O2 Delivery O2 Flow Rate FiO2 02/01/20 16:00 98.2 68 23 123/67 (85) 92 02/01/20 16:00 40 02/01/20 16:00 Mechanical Ventilator Mechanical Ventilator 02/01/20 15:23 67 02/01/20 15:12 69 20 40 02/01/20 12:20 112/47 02/01/20 12:00 40 02/01/20 12:00 Mechanical Ventilator Mechanical Ventilator 02/01/20 12:00 112/47 02/01/20 12:00 98.2 63 16 112/47 (68) 94 02/01/20 11:40 66 02/01/20 11:15 73 24 40 02/01/20 08:42 124/53 02/01/20 08:42 76 124/53 02/01/20 08:41 76 124/53 02/01/20 08:00 Mechanical Ventilator Mechanical Ventilator 02/01/20 08:00 40 02/01/20 08:00 98.7 74 25 124/53 (76) 96 02/01/20 07:40 70 02/01/20 07:10 72 23 40 02/01/20 05:41 136/89 02/01/20 04:00 98.2 82 19 136/89 (105) 96 02/01/20 04:00 Mechanical Ventilator Mechanical Ventilator 02/01/20 04:00 40 02/01/20 03:28 78 02/01/20 03:00 79 19 Mechanical Ventilator 40 02/01/20 00:00 Mechanical Ventilator Mechanical Ventilator 02/01/20 00:00 97.9 73 19 131/74 (93) 96 01/31/20 23:59 72 01/31/20 23:41 131/73 01/31/20 22:48 75 14 100 Mechanical Ventilator 40 72 14 40 01/31/20 20:34 88 146/64 01/31/20 20:00 98.2 88 20 146/64 (91) 100 01/31/20 20:00 Mechanical Ventilator Mechanical Ventilator 01/31/20 20:00 40 01/31/20 19:50 88 19 40 01/31/20 19:34 90 I&O Intake and Output 01/31/20 02/01/20 19:00 07:00 Intake Total 780 ml 530 ml Output Total 180 ml 100 ml Balance 600 ml 430 ml Free Water 300 ml 50 ml Tube Feeding 480 ml 480 ml Output Urine Total 180 ml 100 ml # Bowel Movements 3 Dressing: saturated Cardiovascular: RSR Respiratory: decreased breath sounds Abdomen: non-tender, present bowel sounds Extremities: no cyanosis Laboratory Tests Test 01/31/20 18:19 01/31/20 23:21 02/01/20 03:00 02/01/20 05:14 POC Whole Blood Glucose 93 MG/DL (74-106) 93 MG/DL (74-106) 67 MG/DL (74-106) L White Blood Count 7.3 K/UL (4.8-10.8) Red Blood Count 2.96 M/UL (4.20-5.40) L Hemoglobin 8.5 G/DL (12.0-16.0) L Hematocrit 24.8 % (37.0-47.0) L Mean Corpuscular Volume 84 FL (80-99) Mean Corpuscular Hemoglobin 28.8 PG (27.0-31.0) Mean Corpuscular Hemoglobin Concent 34.3 G/DL (32.0-36.0) Red Cell Distribution Width 14.0 % (11.6-14.8) Platelet Count 335 K/UL (150-450) Mean Platelet Volume 7.0 FL (6.5-10.1) Neutrophils (%) (Auto) 69.5 % (45.0-75.0) Lymphocytes (%) (Auto) 21.7 % (20.0-45.0) Monocytes (%) (Auto) 7.1 % (1.0-10.0) Eosinophils (%) (Auto) 0.8 % (0.0-3.0) Basophils (%) (Auto) 0.9 % (0.0-2.0) Sodium Level 137 MMOL/L (136-145) Potassium Level 3.5 MMOL/L (3.5-5.1) Chloride Level 100 MMOL/L (98-107) Carbon Dioxide Level 27 MMOL/L (21-32) Anion Gap 10 mmol/L (5-15) Blood Urea Nitrogen 84 mg/dL (7-18) H Creatinine 3.5 MG/DL (0.55-1.30) H Estimat Glomerular Filtration Rate 14.0 mL/min (>60) Glucose Level 67 MG/DL (74-106) L Calcium Level 7.9 MG/DL (8.5-10.1) L Phosphorus Level 4.6 MG/DL (2.5-4.9) Total Bilirubin 0.4 MG/DL (0.2-1.0) Aspartate Amino Transf (AST/SGOT) 26 U/L (15-37) Alanine Aminotransferase (ALT/SGPT) 12 U/L (12-78) Alkaline Phosphatase 167 U/L (46-116) H Total Protein 6.8 G/DL (6.4-8.2) Albumin 1.8 G/DL (3.4-5.0) L Globulin 5.0 g/dL Albumin/Globulin Ratio 0.4 (1.0-2.7) L Test 02/01/20 05:40 02/01/20 12:31 02/01/20 17:01 POC Whole Blood Glucose 91 MG/DL (74-106) Pending 95 MG/DL (74-106) Plan Problems: (1) Dehydration (2) Acidosis (3) Depression (4) Pleural effusion (5) Respiratory failure (6) Schizophrenia (7) Hypoxia (8) UTI (urinary tract infection) (9) Pneumonia (10) NSTEMI (non-ST elevated myocardial infarction) (11) Tracheostomy in place (12) Feeding by G-tube (13) JAVIER (acute kidney injury) (14) Acute encephalopathy (15) Sacral decubitus ulcer, stage IV (16) Chronic respiratory failure (17) Ascites (18) Bacteremia (19) Hypernatremia (20) Proteinuria (21) Electrolyte imbalance (22) ACS (acute coronary syndrome) (23) Aortic dissection, thoracic (24) Respiratory failure, acute and chronic (25) JAVIER (acute kidney injury) (26) Abrasion of lip, initial encounter (27) COPD with exacerbation (28) Elevated alkaline phosphatase level (29) Renal failure (ARF), acute on chronic (30) HCAP (healthcare-associated pneumonia) (31) GT CLOGGED (32) Elevated lipase (33) Pancreatitis (34) Elevated troponin (35) Hypokalemia (36) Hyponatremia (37) Anemia (38) Renal failure (39) ARF (acute renal failure) (40) Pacemaker (41) Sepsis Assessment & Plan: leukocytosis anemia on HD renal insufficiency wounds addressed pancreatitis cont diet as tolerating trend labs lf'ts okay pt presented on admission with Tracheostomy ,GT and Multiple Pressure Injuries. Skin assessment of skin under tracheal collar without evidence of skin breakdown. Peristomal GT site excoriated.Moderate amt of dark red sanguineous exudate. Full Thickness Sacral Pressure Injury with undermined borders (L)9 cm x (W)12cm x (D)1.8cm,Undermining clockwise8-9 by 2.2cm @1o'clock,undermining clockwise 1-4 by 1.9 @ 9'oclock Scattered necrotic tissue within wound bed. Borders are loose and necrotic with marginal erythema to outer perimeter of wound. NO elevation in skin temp noted periwound. Wound is malodorous. Small amt Brown exudate noted. Resolving Pressure Injury L Ischium(L)1.5cm x (W)1.5cm. Base of wound is 80% pink epithelial with an area that is moist and pink. NO odor or exudate noted. Bilat foot-drop noted. L Heel is boggy with non-blanchable erythema(L)4cm x (W)4cm. R heel is boggy with non-Blanchable erythema(L)5cm x (W)6cm. Tx.Plan: Cleanse sacral wound with Dakin's 0.125% annie. Loosely pack with Dakin's moistened Kerlix(Attention to undermined borders). Apply Moisture Barrier Paste periwound. Cover with Optifoam drsg. Change Daily and PRN. Apply Cavilon Skin Barrier to R and L Hels. Cover each heel with Optifoam drsg. Change every 7 days and prn. Reposition at least every 2hours or as tolerated. Off-load heels with Pillow. APM/JENNIFER MAttress overlay DAILY ESTIMATED NEEDS: Needs based on Critical care, wound, renal dysfunction 56 kg abw 28-33 kcals/kg 5931-8462 total kcals W/ HD (1.5-2.0) g protein/kg 84-112 g total protein Fluid per MD mL/kg . total fluid mLs NUTRITION DIAGNOSIS: * Swallowing difficulty R/T dysphagia, respiratory status as evidenced by vent dep via trach, GT Dep. * Increase kcal and pro needs r/t wound healing, renal dysfunction as evidenced by admitted w/ large, advanced sacral wound, previously stage 4, pending eval, admitted w/ JAVIER, pending HD. CURRENT TF:NPO ENTERAL NUTRITION RECOMMENDATIONS: Nepro @ 40ml/hr x 24 hrs + Prosource 1pkt QD to provide 960ml, 1728kcal, 78g+11g prot, 698ml free water * As medically appropriate, initiate TF on Nepro, rec goal rate fo 40ml/hr x 24 hrs * Add Prosource 1pkt QD to better meet increased protein needs (additional 11g prot) * Water flush per MD/ HOB over 30 degrees ADDITIONAL RECOMMENDATIONS: * Per SNF in NOV 2019: HT=63"/ Rec daily calibrated bedscale wt * Monitor for continuity of HD: non-tunneled cath placement ordered * Monitor lytes and renal fxn for improvement (Na low, K and phos elevated) * Wound care: add Nephrovite x 1, ZnSO4 220mg QD x 10 days Reynaldo BID via PEG (mix w/ 2-4 oz water) * Monitor BG closely for hypoglycemia while NPO (h/o DM, on Nacl 3% to correct hyponatremia, consider accuchecks) (42) Hyponatremia Lane Saavedra Feb 01, 2020 18:10
--- NOTE | 2020-02-01 18:51 | General Progress Note ---
Subjective Constitutional: Reports: no symptoms HEENT: Reports: no symptoms Cardiovascular: Reports: no symptoms Respiratory: Reports: no symptoms Gastrointestinal/Abdominal: Reports: no symptoms Genitourinary: Reports: no symptoms Neurologic/Psychiatric: Reports: other - Her head tremor resolved the right upper extremity tremor resolved but she still has a tremor in the left upper extremity wrapping low amplitude Endocrine: Reports: no symptoms Hematologic/Lymphatic: Reports: no symptoms Allergies: Coded Allergies: No Known Allergies (Unverified , 10/10/17) Objective Last 24 Hour Vital Signs Date Time Temp Pulse Resp B/P (MAP) Pulse Ox O2 Delivery O2 Flow Rate FiO2 02/01/20 18:18 133/66 02/01/20 18:18 65 133/66 02/01/20 18:17 133/66 02/01/20 16:00 98.2 68 23 123/67 (85) 92 02/01/20 16:00 40 02/01/20 16:00 Mechanical Ventilator Mechanical Ventilator 02/01/20 15:23 67 02/01/20 15:12 69 20 40 02/01/20 12:20 112/47 02/01/20 12:00 40 02/01/20 12:00 Mechanical Ventilator Mechanical Ventilator 02/01/20 12:00 112/47 02/01/20 12:00 98.2 63 16 112/47 (68) 94 02/01/20 11:40 66 02/01/20 11:15 73 24 40 02/01/20 08:42 124/53 02/01/20 08:42 76 124/53 02/01/20 08:41 76 124/53 02/01/20 08:00 Mechanical Ventilator Mechanical Ventilator 02/01/20 08:00 40 02/01/20 08:00 98.7 74 25 124/53 (76) 96 02/01/20 07:40 70 02/01/20 07:10 72 23 40 02/01/20 05:41 136/89 02/01/20 04:00 98.2 82 19 136/89 (105) 96 02/01/20 04:00 Mechanical Ventilator Mechanical Ventilator 02/01/20 04:00 40 02/01/20 03:28 78 02/01/20 03:00 79 19 Mechanical Ventilator 40 02/01/20 00:00 Mechanical Ventilator Mechanical Ventilator 12/19/20 00:00 97.9 73 19 131/74 (93) 96 01/31/20 23:59 72 01/31/20 23:41 131/73 01/31/20 22:48 75 14 100 Mechanical Ventilator 40 72 14 40 01/31/20 20:34 88 146/64 01/31/20 20:00 98.2 88 20 146/64 (91) 100 01/31/20 20:00 Mechanical Ventilator Mechanical Ventilator 01/31/20 20:00 40 01/31/20 19:50 88 19 40 01/31/20 19:34 90 Intake and Output 01/31/20 02/01/20 19:00 07:00 Intake Total 780 ml 530 ml Output Total 180 ml 100 ml Balance 600 ml 430 ml Free Water 300 ml 50 ml Tube Feeding 480 ml 480 ml Output Urine Total 180 ml 100 ml # Bowel Movements 3 Laboratory Tests 01/31/20 23:21: POC Whole Blood Glucose 93 02/01/20 03:00: White Blood Count 7.3, Red Blood Count 2.96L, Hemoglobin 8.5L, Hematocrit 24.8L, Mean Corpuscular Volume 84, Mean Corpuscular Hemoglobin 28.8, Mean Corpuscular Hemoglobin Concent 34.3, Red Cell Distribution Width 14.0, Platelet Count 335, Mean Platelet Volume 7.0, Neutrophils (%) (Auto) 69.5, Lymphocytes (%) (Auto) 21.7, Monocytes (%) (Auto) 7.1, Eosinophils (%) (Auto) 0.8, Basophils (%) (Auto) 0.9, Sodium Level 137, Potassium Level 3.5, Chloride Level 100, Carbon Dioxide Level 27, Anion Gap 10, Blood Urea Nitrogen 84H, Creatinine 3.5H, Estimat Glomerular Filtration Rate 14.0, Glucose Level 67L, Calcium Level 7.9L, Phosphorus Level 4.6, Total Bilirubin 0.4, Aspartate Amino Transf (AST/SGOT) 26, Alanine Aminotransferase (ALT/SGPT) 12, Alkaline Phosphatase 167H, Total Protein 6.8, Albumin 1.8L, Globulin 5.0, Albumin/Globulin Ratio 0.4L 02/01/20 05:14: POC Whole Blood Glucose 67L 02/01/20 05:40: POC Whole Blood Glucose 91 02/01/20 12:31: POC Whole Blood Glucose [Pending] 02/01/20 17:01: POC Whole Blood Glucose 95 Height (Feet): 5 Height (Inches): 6.00 Weight (Pounds): 150 General Appearance: WD/WN, alert, lethargic EENT: TMs normal Neck: normal alignment, supple Cardiovascular: normal rate, regular rhythm, no gallop/murmur, no JVD Respiratory/Chest: decreased breath sounds, other - There is decreased breath sounds at both bases but upper lungs are clear Abdomen: normal bowel sounds, non tender, soft, no organomegaly, no mass Extremities: non-tender Neurologic: alert, responsive, depressed affect Assessment/Plan Status Narrative Patient is awake alert afebrile she was given yesterday amantadine 1 mg twice daily this has a marked effect on patient tremor head tremor completely resolved right upper extremity tremor is minimal on the is more visible the tremor itself is a bit is very low amplitude patient facial expression revealed depression the patient to antibiotic and been DC'd febrile without tachycardia and without leukocytosis repeat laboratory tests will be done in a.m. Lucas Wooten MD, MD Feb 01, 2020 18:51
--- NOTE | 2020-02-01 19:15 | NUR ---
NURSE HAND-OFF REPORT: Important Events on Shift: FiO2 increased ti 80% because with the goal 40%, the patient desats Patient Status: Diet: Pending Orders: Pending Results/Labs: Pending MD notification: Latest Vital Signs: Temperature 98.2 , Pulse 65 , B/P 133 /66 , Respiratory Rate 23 , O2 SAT 92 , Mechanical Ventilator, O2 Flow Rate . Vital Sign Comment: EKG Rhythm: Sinus Rhythm Rhythm change?: N MD Notified?: Gabriel Willams MD Response: Order Received& Read Back Latest Chav[place]ria Fall Score: 70 Fall Risk: High Risk Safety Measures: Call light Within Reach, Bed Alarm Zone 1, Side Rails Side Rails x3, Bed position Low and Locked. Fall Precautions: Yellow Socks Report given to John ZIMMERMAN.
--- NOTE | 2020-02-01 19:20 | NUR ---
NURSE NOTES: Pt received from ERASMO Myers alert and oriented x0, nonverbal. cafeteria monitor on - Sinus Rhythm (70s). Trach to vent - Shiley 6, AC 14, TV 500, PEEP 5, 80% FiO2 saturating at 97%. Oral care provided upon rounds. Gtube feed tolerated - running to Nepro 40 ml continuous. Norman catheter patent and draining to raul-colored urine. L femoral Charlie catheter intact - dressing clean, dry, and intact. Bed in lowest position, call light within reach.
[2020-02-01 20:00] VITALS: BP 129/63
[2020-02-01] MEDS: Dyna-Hex 2% Top Sol 2oz TOPIC SCH (22:11)
[2020-02-02] VITALS: BP 120/71
--- NOTE | 2020-02-02 01:32 | Cardiology Progress Note ---
Subjective DATE OF SERVICE: Feb 01, 2020 Remains in atrial fibrillation; rates controlled. Occasional PVC's - non- sustained BP range stable Full vent support via trach s/p left thorocentesis 01/22/20 Low hemoglobin; on epogen Objective Last 24 Hour Vital Signs Date Time Temp Pulse Resp B/P (MAP) Pulse Ox O2 Delivery O2 Flow Rate FiO2 02/02/20 00:00 98.0 77 20 120/71 (87) 99 02/02/20 00:00 40 02/02/20 00:00 Mechanical Ventilator Mechanical Ventilator 02/02/20 00:00 120/71 02/02/20 00:00 65 02/01/20 23:15 66 17 80 02/01/20 21:26 77 129/63 02/01/20 20:00 Mechanical Ventilator Mechanical Ventilator 02/01/20 20:00 40 02/01/20 20:00 98.2 77 22 129/63 (85) 96 02/01/20 20:00 74 02/01/20 19:10 68 17 80 02/01/20 18:18 133/66 02/01/20 18:18 65 133/66 02/01/20 18:17 133/66 02/01/20 16:00 98.2 68 23 123/67 (85) 92 02/01/20 16:00 40 02/01/20 16:00 Mechanical Ventilator Mechanical Ventilator 02/01/20 15:23 67 02/01/20 15:12 69 20 40 02/01/20 12:20 112/47 02/01/20 12:00 40 02/01/20 12:00 Mechanical Ventilator Mechanical Ventilator 02/01/20 12:00 112/47 02/01/20 12:00 98.2 63 16 112/47 (68) 94 02/01/20 11:40 66 02/01/20 11:15 73 24 40 02/01/20 08:42 124/53 02/01/20 08:42 76 124/53 02/01/20 08:41 76 124/53 02/01/20 08:00 Mechanical Ventilator Mechanical Ventilator 02/01/20 08:00 40 02/01/20 08:00 98.7 74 25 124/53 (76) 96 02/01/20 07:40 70 02/01/20 07:10 72 23 40 12/19/20 05:41 136/89 02/01/20 04:00 98.2 82 19 136/89 (105) 96 02/01/20 04:00 Mechanical Ventilator Mechanical Ventilator 02/01/20 04:00 40 02/01/20 03:28 78 02/01/20 03:00 79 19 Mechanical Ventilator 40 ROS: unchanged for 01/17/20 HEENT: Mechanically Ventilated, Thick Trach secretions RHYTHM: Afib LUNGS: bilateral rhonchi, trach site clean CARDIAC: normal S1 and S2, irregularly irregular ABDOMEN: normal bowel sounds, non tender, soft, G-Tube intact EXTREMITIES: normal inspection, trace edema Laboratory Tests Test 02/01/20 03:00 02/01/20 05:14 02/01/20 05:40 02/01/20 12:31 White Blood Count 7.3 K/UL (4.8-10.8) Red Blood Count 2.96 M/UL (4.20-5.40) L Hemoglobin 8.5 G/DL (12.0-16.0) L Hematocrit 24.8 % (37.0-47.0) L Mean Corpuscular Volume 84 FL (80-99) Mean Corpuscular Hemoglobin 28.8 PG (27.0-31.0) Mean Corpuscular Hemoglobin Concent 34.3 G/DL (32.0-36.0) Red Cell Distribution Width 14.0 % (11.6-14.8) Platelet Count 335 K/UL (150-450) Mean Platelet Volume 7.0 FL (6.5-10.1) Neutrophils (%) (Auto) 69.5 % (45.0-75.0) Lymphocytes (%) (Auto) 21.7 % (20.0-45.0) Monocytes (%) (Auto) 7.1 % (1.0-10.0) Eosinophils (%) (Auto) 0.8 % (0.0-3.0) Basophils (%) (Auto) 0.9 % (0.0-2.0) Sodium Level 137 MMOL/L (136-145) Potassium Level 3.5 MMOL/L (3.5-5.1) Chloride Level 100 MMOL/L (98-107) Carbon Dioxide Level 27 MMOL/L (21-32) Anion Gap 10 mmol/L (5-15) Blood Urea Nitrogen 84 mg/dL (7-18) H Creatinine 3.5 MG/DL (0.55-1.30) H Estimat Glomerular Filtration Rate 14.0 mL/min (>60) Glucose Level 67 MG/DL (74-106) L Calcium Level 7.9 MG/DL (8.5-10.1) L Phosphorus Level 4.6 MG/DL (2.5-4.9) Total Bilirubin 0.4 MG/DL (0.2-1.0) Aspartate Amino Transf (AST/SGOT) 26 U/L (15-37) Alanine Aminotransferase (ALT/SGPT) 12 U/L (12-78) Alkaline Phosphatase 167 U/L (46-116) H Total Protein 6.8 G/DL (6.4-8.2) Albumin 1.8 G/DL (3.4-5.0) L Globulin 5.0 g/dL Albumin/Globulin Ratio 0.4 (1.0-2.7) L POC Whole Blood Glucose 67 MG/DL (74-106) L 91 MG/DL (74-106) Pending Test 02/01/20 17:01 02/02/20 00:05 POC Whole Blood Glucose 95 MG/DL (74-106) 104 MG/DL (74-106) Assessment/Plan Assessment/Plan Chronic respiratory failure with trach Severe sepsis PAFib with rapid ventric response. Ischemic cardiomyopathy - hx CABG and s/p NSTEMI in Dec 2019. Conduction system disease of the heart Hx of permanent pacemaker explant Acute on chronic systolic and diastolic CHF Pleural effusion Anemia Hypertension/HHD with labile BP. Avoid beta flori therapy based on risk of bradycardia. Anti-failure and anti-anginal regimen with titration Vent support Abx per ID Continuous cardiac monitoring Anti-HTN regimen being titrated. Transfuse for further drop in hemoglobin Deni Willams MD Feb 02, 2020 01:32
[2020-02-02 04:00] VITALS: BP 117/64
[2020-02-02] MEDS: HydrALAZINE 25mg tab GT SCH ×4 (05:45→18:06)
[2020-02-02 05:57] LABS: BASOPHILS % (AUTO) 1.2 % (0.0-2.0); EOSINOPHILS % (AUTO) 1.6 % (0.0-3.0); HEMATOCRIT 25.1 % (37.0-47.0); HEMOGLOBIN 8.2 G/DL (12.0-16.0); MEAN CORPUSCULAR VOLUME 86 FL (80-99); MONOCYTES % (AUTO) 7.4 % (1.0-10.0); NEUTROPHILS % (AUTO) 66.8 % (45.0-75.0); PLATELET COUNT 405 K/UL (150-450); RED BLOOD COUNT 2.93 M/UL (4.20-5.40); WHITE BLOOD COUNT 6.2 K/UL (4.8-10.8)
[2020-02-02 06:47] LABS: ALANINE AMINOTRANSFERASE 13 U/L (12-78); ALBUMIN 1.9 G/DL (3.4-5.0); ALBUMIN/GLOBULIN RATIO 0.4 (1.0-2.7); ALKALINE PHOSPHATASE 158 U/L (46-116); ANION GAP 11 mmol/L (5-15); ASPARTATE AMINO TRANSFERASE 24 U/L (15-37); BILIRUBIN,TOTAL 0.4 MG/DL (0.2-1.0); BLOOD UREA NITROGEN 100 mg/dL (7-18); CALCIUM 8.5 MG/DL (8.5-10.1); CARBON DIOXIDE 28 MMOL/L (21-32); CHLORIDE 99 MMOL/L (98-107); CREATININE 3.9 MG/DL (0.55-1.30); PHOSPHORUS 5.2 MG/DL (2.5-4.9); POTASSIUM 3.6 MMOL/L (3.5-5.1); SODIUM 138 MMOL/L (136-145)
--- NOTE | 2020-02-02 07:18 | NUR ---
NURSE HAND-OFF REPORT: Important Events on Shift: Pt afebrile during shift, requires frequent oral suctioning due to increased oral secretions. VS WNL Patient Status: Ongoing Diet: Gtube Pending Orders: n/a Pending Results/Labs: n/a Pending MD notification: n/a Latest Vital Signs: Temperature 98.2 , Pulse 67 , B/P 117 /64 , Respiratory Rate 20 , O2 SAT 100 , Mechanical Ventilator, O2 Flow Rate . Vital Sign Comment: WNL EKG Rhythm: Sinus Rhythm Rhythm change?: N Notified?: N MD Response: N/A Latest [place] Fall Score: 70 Fall Risk: High Risk Safety Measures: Call light Within Reach, Bed Alarm Zone 1, Side Rails Side Rails x3, Bed position Low and Locked. Fall Precautions: Yellow Socks Report given to ERASMO Lu.
--- NOTE | 2020-02-02 07:30 | NUR ---
NURSE NOTES: Received pt from RN Caret, pt is awake and confused, pt is on trach to vent AC 14 TV 500 FIO2 80% PEEP 5, pt is on continues heart monitoring, pt has intact iv access RFA 22G and L wrist 18G SL. Pt has G tube in place is working well. pt has Norman cath in place is working well. no complain of pain at this moment. all needs attended, bed is locked and is in the lowest position, call light within easy reach. will continue to monitor.
[2020-02-02 08:00] VITALS: BP 132/61
--- NOTE | 2020-02-02 08:56 | Hematology/Onc Progress Note ---
Assessment/Plan Assessment/Plan Assessment and Recs # Leukocytosis, now with pna v other process --> Cxr: : Large left pleural effusion, Bilateral interstitial and airspace infiltrates versus edema --> wbc 16-->26->30-->10->8 --> ABX zosyn-->angelo/vanc-->angelo/tobra->off --> ID recs are noted --> smear has been reviewed # Anemia of chronic disease due to underlying chronic medical issues, multifactorial --> Anemia workup has been reviewed, cw acd --> No evidence of hemolysis is noted, peripheral smear has been reviewed. --> Hgb goal >7. Transfuse prn. --> Epogen required, to continue --> Medications have been reviewed --> low threshold for gi evaluation in case has occult + --> hgb 7.1-->7.8-->>>5.9-->7.3-->7-->7.2-->7.9-->8.6-->8.2 --> 1 unit prbc10/17, 2 units 12/3 --> gi eval as needed # Coagulopathy with inr 1.5 --> consider vit k/ffp as needed preprocedure --> labs noted # JAVIER initially >2 --> on ivfs --> per renal # Elevated d-dimer --> venous duplex ordered-->reviewed, is neg --> in prior neg # Dysphagia s/p peg --> as per gi # Thoracic aortic dissection --> s/p repair early 2017 # Chronic Resp failure -> s/p trach/vent # Psychiatric history on ativan/haldol # [place] resident # Dvt ppx --> scds The timing of this note does not necessarily reflect the time of the patient was seen. Greatly appreciate consultation. Subjective Constitutional: Denies: no symptoms, chills, fever, malaise, weakness, other HEENT: Denies: no symptoms, eye pain, blurred vision, tearing, double vision, ear pain, ear discharge, nose pain, nose congestion, throat pain, throat swelling, mouth pain, mouth swelling, other Respiratory: Denies: no symptoms, cough, shortness of breath, SOB with excertion, SOB at rest, sputum, wheezing, other Gastrointestinal/Abdominal: Denies: no symptoms, abdomen distended, abdominal pain, black stools, tarry stools, blood in stool, constipated, diarrhea, difficulty swallowing, nausea, poor appetite, poor fluid intake, rectal bleeding, vomiting, other Genitourinary: Denies: no symptoms, burning, discharge, frequency, flank pain, hematuria, incontinence, pain, urgency, other Neurologic/Psychiatric: Denies: no symptoms, anxiety, depressed, emotional problems, headache, numbness, paresthesia, pre-existing deficit, seizure, tingling, tremors, weakness, other Endocrine: Denies: no symptoms, excessive sweating, flushing, intolerance to cold, intolerance to heat, increased hunger, increased thirst, increased urine, unexplained weight gain, unexplained weight loss, other Allergies: Coded Allergies: No Known Allergies (Unverified , 10/10/17) Subjective 01/16 left femoral arden in place, on vent, icu, hgb better 01/18 labs are noted, wbc 30, hgb 7, may require prbc today 01/27 is off amio, on epoogen, hgb reviewed, 7.2, transfuse if unstable 01/28 pain meds given, some foaming around mouth, no bleeding 01/29 hd was done yesterday, no bleedig, cbc pending, asa given 01/30 labs are noted, no bleeding, labs reviewed, pending meds 02/01 labs are noted, no bleeding, meds reviewed, no f/c, trach/vent Objective Objective Current Medications Medications (Trade) Dose Ordered Sig/Penny Route PRN Reason Start Time Stop Time Status Last Admin Dose Admin Acetaminophen (Tylenol) 500 mg Q6H PRN GT FEVER 01/21/20 20:45 02/20/20 20:44 01/29/20 02:01 Acetaminophen/ Hydrocodone Bitart ([place] 5/325) 1 tab Q6H PRN GT Moderate Breakthru Pain (5-7) 01/31/20 07:45 02/07/20 07:44 02/01/20 04:22 Amantadine HCl (Symmetrel) 100 mg TWICE A DAY GT 01/31/20 18:00 03/01/20 17:59 02/01/20 18:17 Amlodipine Besylate (Norvasc) 5 mg BID GT 01/22/20 18:00 02/20/20 15:44 02/01/20 18:18 Aspirin (ASA) 81 mg DAILY GT 01/20/20 09:00 03/05/20 08:59 02/01/20 08:41 Atorvastatin Calcium (Lipitor) 10 mg BEDTIME GT 01/17/20 21:00 04/16/20 20:59 02/01/20 21:26 Chlorhexidine Gluconate (Ling-Hex 2%) 1 applic DAILY@1999 TOPIC 01/17/20 20:00 04/16/20 19:59 02/01/20 22:11 Dextrose (Dextrose 50%) 25 ml Q30M PRN IV Hypoglycemia 01/15/20 22:15 04/14/20 22:14 Dextrose (Dextrose 50%) 50 ml Q30M PRN IV Hypoglycemia 01/15/20 22:15 04/14/20 22:14 01/22/20 17:54 Docusate Sodium (Colace) 200 mg BIDPRN PRN GT Constipation 01/31/20 07:45 03/01/20 07:44 01/31/20 20:34 Epoetin Gelacio (Epoetin Gelacio(ESRD on dialysis)) 10,000 unit MON-MON-MON SUBQ 01/27/20 21:00 04/26/20 20:59 01/31/20 21:19 Hydralazine HCl (Apresoline) 25 mg Q6HR GT 01/26/20 18:15 04/25/20 18:14 02/01/20 18:18 Isosorbide Dinitrate (Isordil) 20 mg TID GT 01/25/20 09:00 02/19/20 08:59 02/01/20 18:17 Lansoprazole (Prevacid) 30 mg BID GT 01/19/20 18:00 02/18/20 17:59 02/01/20 18:17 Metoclopramide HCl (Reglan) 5 mg Q6H PRN IVP Nausea & Vomiting 01/15/20 22:15 02/14/20 22:14 Metoprolol Tartrate (Lopressor) 25 mg Q12HR ORAL 01/27/20 21:00 04/22/20 20:59 02/01/20 21:26 Sodium Hypochlorite (Dakin's Quarter Strength) 1 applic DAILY TOPIC 01/30/20 09:00 02/29/20 08:59 02/01/20 08:43 Zinc Oxide (Zinc Oxide) 1 applic TIDPRN PRN TOPIC diogenes GT 01/16/20 13:15 04/15/20 13:14 01/16/20 14:55 Last 24 Hour Vital Signs Date Time Temp Pulse Resp B/P (MAP) Pulse Ox O2 Delivery O2 Flow Rate FiO2 02/02/20 08:00 Mechanical Ventilator Mechanical Ventilator 02/02/20 08:00 80 02/02/20 05:45 117/64 02/02/20 04:00 98.2 67 20 117/64 (81) 100 02/02/20 04:00 40 02/02/20 04:00 84 02/02/20 04:00 Mechanical Ventilator Mechanical Ventilator 02/02/20 03:20 71 22 80 02/02/20 00:00 98.0 77 20 120/71 (87) 99 02/02/20 00:00 40 02/02/20 00:00 73 02/02/20 00:00 Mechanical Ventilator Mechanical Ventilator 02/02/20 00:00 120/71 02/02/20 00:00 65 02/01/20 23:15 66 17 80 02/01/20 21:26 77 129/63 02/01/20 20:00 Mechanical Ventilator Mechanical Ventilator 02/01/20 20:00 40 02/01/20 20:00 98.2 77 22 129/63 (85) 96 02/01/20 20:00 74 02/01/20 19:10 68 17 80 02/01/20 18:18 133/66 02/01/20 18:18 65 133/66 02/01/20 18:17 133/66 02/01/20 16:00 98.2 68 23 123/67 (85) 92 02/01/20 16:00 40 02/01/20 16:00 Mechanical Ventilator Mechanical Ventilator 02/01/20 15:23 67 02/01/20 15:12 69 20 40 02/01/20 12:20 112/47 02/01/20 12:00 40 02/01/20 12:00 Mechanical Ventilator Mechanical Ventilator 02/01/20 12:00 112/47 02/01/20 12:00 98.2 63 16 112/47 (68) 94 02/01/20 11:40 66 02/01/20 11:15 73 24 40 02/01/20 08:42 124/53 02/01/20 08:42 76 124/53 02/01/20 08:41 76 124/53 02/01/20 08:00 Mechanical Ventilator Mechanical Ventilator 02/01/20 08:00 40 02/01/20 08:00 98.7 74 25 124/53 (76) 96 02/01/20 07:40 70 02/01/20 07:10 72 23 40 02/01/20 05:41 136/89 02/01/20 04:00 98.2 82 19 136/89 (105) 96 02/01/20 04:00 Mechanical Ventilator Mechanical Ventilator 02/01/20 04:00 40 02/01/20 03:28 78 02/01/20 03:00 79 19 Mechanical Ventilator 40 02/01/20 00:00 Mechanical Ventilator Mechanical Ventilator 02/01/20 00:00 97.9 73 19 131/74 (93) 96 01/31/20 23:59 72 01/31/20 23:41 131/73 01/31/20 22:48 75 14 100 Mechanical Ventilator 40 72 14 40 01/31/20 20:34 88 146/64 01/31/20 20:00 98.2 88 20 146/64 (91) 100 01/31/20 20:00 Mechanical Ventilator Mechanical Ventilator 01/31/20 20:00 40 01/31/20 19:50 88 19 40 01/31/20 19:34 90 18 17:35 135/68 18 17:05 143/64 01/31/20 17:05 85 143/64 01/31/20 16:00 98.6 85 23 143/64 (90) 100 01/31/20 16:00 Mechanical Ventilator Mechanical Ventilator 01/31/20 16:00 87 01/31/20 16:00 40 01/31/20 15:04 84 21 40 01/31/20 12:23 137/75 01/31/20 12:00 77 01/31/20 12:00 40 01/31/20 12:00 Mechanical Ventilator Mechanical Ventilator 01/31/20 11:54 97.7 75 21 142/62 (88) 95 01/31/20 11:41 125/76 01/31/20 11:18 75 20 98 Mechanical Ventilator 40 76 20 40 01/31/20 09:44 88 139/60 Intake and Output 02/01/20 02/02/20 19:00 07:00 Intake Total 660 ml 580 ml Output Total 100 ml 250 ml Balance 560 ml 330 ml Free Water 180 ml 140 ml Tube Feeding 480 ml 440 ml Output Urine Total 100 ml 250 ml Labs Test 01/31/20 00:25 01/31/20 03:00 01/31/20 11:19 01/31/20 18:19 POC Whole Blood Glucose 95 MG/DL (74-106) 91 MG/DL (74-106) 93 MG/DL (74-106) White Blood Count 6.9 K/UL (4.8-10.8) Red Blood Count 2.97 M/UL (4.20-5.40) Hemoglobin 8.6 G/DL (12.0-16.0) Hematocrit 25.4 % (37.0-47.0) Mean Corpuscular Volume 85 FL (80-99) Mean Corpuscular Hemoglobin 28.8 PG (27.0-31.0) Mean Corpuscular Hemoglobin Concent 33.7 G/DL (32.0-36.0) Red Cell Distribution Width 14.4 % (11.6-14.8) Platelet Count 291 K/UL (150-450) Mean Platelet Volume 6.7 FL (6.5-10.1) Neutrophils (%) (Auto) 72.3 % (45.0-75.0) Lymphocytes (%) (Auto) 19.1 % (20.0-45.0) Monocytes (%) (Auto) 7.1 % (1.0-10.0) Eosinophils (%) (Auto) 0.8 % (0.0-3.0) Basophils (%) (Auto) 0.7 % (0.0-2.0) Test 01/31/20 23:21 02/01/20 03:00 02/01/20 05:14 02/01/20 05:40 POC Whole Blood Glucose 93 MG/DL (74-106) 67 MG/DL (74-106) 91 MG/DL (74-106) White Blood Count 7.3 K/UL (4.8-10.8) Red Blood Count 2.96 M/UL (4.20-5.40) Hemoglobin 8.5 G/DL (12.0-16.0) Hematocrit 24.8 % (37.0-47.0) Mean Corpuscular Volume 84 FL (80-99) Mean Corpuscular Hemoglobin 28.8 PG (27.0-31.0) Mean Corpuscular Hemoglobin Concent 34.3 G/DL (32.0-36.0) Red Cell Distribution Width 14.0 % (11.6-14.8) Platelet Count 335 K/UL (150-450) Mean Platelet Volume 7.0 FL (6.5-10.1) Neutrophils (%) (Auto) 69.5 % (45.0-75.0) Lymphocytes (%) (Auto) 21.7 % (20.0-45.0) Monocytes (%) (Auto) 7.1 % (1.0-10.0) Eosinophils (%) (Auto) 0.8 % (0.0-3.0) Basophils (%) (Auto) 0.9 % (0.0-2.0) Sodium Level 137 MMOL/L (136-145) Potassium Level 3.5 MMOL/L (3.5-5.1) Chloride Level 100 MMOL/L (98-107) Carbon Dioxide Level 27 MMOL/L (21-32) Anion Gap 10 mmol/L (5-15) Blood Urea Nitrogen 84 mg/dL (7-18) Creatinine 3.5 MG/DL (0.55-1.30) Estimat Glomerular Filtration Rate 14.0 mL/min (>60) Glucose Level 67 MG/DL (74-106) Calcium Level 7.9 MG/DL (8.5-10.1) Phosphorus Level 4.6 MG/DL (2.5-4.9) Total Bilirubin 0.4 MG/DL (0.2-1.0) Aspartate Amino Transf (AST/SGOT) 26 U/L (15-37) Alanine Aminotransferase (ALT/SGPT) 12 U/L (12-78) Alkaline Phosphatase 167 U/L (46-116) Total Protein 6.8 G/DL (6.4-8.2) Albumin 1.8 G/DL (3.4-5.0) Globulin 5.0 g/dL Albumin/Globulin Ratio 0.4 (1.0-2.7) Test 02/01/20 12:31 02/01/20 17:01 02/02/20 00:05 02/02/20 04:01 POC Whole Blood Glucose 95 MG/DL (74-106) 104 MG/DL (74-106) White Blood Count 6.2 K/UL (4.8-10.8) Red Blood Count 2.93 M/UL (4.20-5.40) Hemoglobin 8.2 G/DL (12.0-16.0) Hematocrit 25.1 % (37.0-47.0) Mean Corpuscular Volume 86 FL (80-99) Mean Corpuscular Hemoglobin 28.1 PG (27.0-31.0) Mean Corpuscular Hemoglobin Concent 32.9 G/DL (32.0-36.0) Red Cell Distribution Width 15.0 % (11.6-14.8) Platelet Count 405 K/UL (150-450) Mean Platelet Volume 6.6 FL (6.5-10.1) Neutrophils (%) (Auto) 66.8 % (45.0-75.0) Lymphocytes (%) (Auto) 23.0 % (20.0-45.0) Monocytes (%) (Auto) 7.4 % (1.0-10.0) Eosinophils (%) (Auto) 1.6 % (0.0-3.0) Basophils (%) (Auto) 1.2 % (0.0-2.0) Sodium Level 138 MMOL/L (136-145) Potassium Level 3.6 MMOL/L (3.5-5.1) Chloride Level 99 MMOL/L (98-107) Carbon Dioxide Level 28 MMOL/L (21-32) Anion Gap 11 mmol/L (5-15) Blood Urea Nitrogen 100 mg/dL (7-18) Creatinine 3.9 MG/DL (0.55-1.30) Estimat Glomerular Filtration Rate 12.4 mL/min (>60) Glucose Level 78 MG/DL (74-106) Calcium Level 8.5 MG/DL (8.5-10.1) Phosphorus Level 5.2 MG/DL (2.5-4.9) Magnesium Level 2.6 MG/DL (1.8-2.4) Total Bilirubin 0.4 MG/DL (0.2-1.0) Aspartate Amino Transf (AST/SGOT) 24 U/L (15-37) Alanine Aminotransferase (ALT/SGPT) 13 U/L (12-78) Alkaline Phosphatase 158 U/L (46-116) C-Reactive Protein, Quantitative 19.0 mg/dL (0.00-0.90) Total Protein 6.9 G/DL (6.4-8.2) Albumin 1.9 G/DL (3.4-5.0) Globulin 5.0 g/dL Albumin/Globulin Ratio 0.4 (1.0-2.7) Test 02/02/20 05:21 02/02/20 06:09 POC Whole Blood Glucose 77 MG/DL (74-106) 91 MG/DL (74-106) Height (Feet): 5 Height (Inches): 6.00 Weight (Pounds): 150 Objective Physical Exam: Vitals: reviewed General: NAD HEENT: nc, at Neck: supple ++trach/vent Chest: clear breath sounds bilaterally Cardiovascular: RRR, no s3, s4 Abdomen: soft, nontender, nd +gtube Extremities: no cce, normal range of motion Neuro: alert Evan Muhammad MD Feb 02, 2020 08:56
[2020-02-02] MEDS: Aspirin Baby 81mg GT SCH (09:41)
[2020-02-02] MEDS: Amantadine 100mg cap GT SCH ×2 (09:42→18:06)
[2020-02-02] MEDS: Dakin's 0.125% Soln (Quarter Strength) 16oz TOPIC SCH (09:43)
--- NOTE | 2020-02-02 10:20 | Pulmonology Progress Note ---
Subjective ROS Limited/Unobtainable: Yes Interval Events: s/p HD Constitutional: Reports: no symptoms HEENT: Repors: no symptoms Respiratory: Reports: no symptoms Cardiovascular: Reports: no symptoms Gastrointestinal/Abdominal: Reports: no symptoms Allergies: Coded Allergies: No Known Allergies (Unverified , 10/10/17) All Systems: reviewed and negative except above Objective Last 24 Hour Vital Signs Date Time Temp Pulse Resp B/P (MAP) Pulse Ox O2 Delivery O2 Flow Rate FiO2 02/02/20 09:42 74 132/61 02/02/20 09:42 74 132/61 02/02/20 09:41 132/61 02/02/20 08:00 97.7 74 20 132/61 (84) 98 02/02/20 08:00 Mechanical Ventilator Mechanical Ventilator 02/02/20 08:00 80 02/02/20 07:57 79 02/02/20 05:45 117/64 02/02/20 04:00 98.2 67 20 117/64 (81) 100 02/02/20 04:00 40 02/02/20 04:00 84 02/02/20 04:00 Mechanical Ventilator Mechanical Ventilator 02/02/20 03:20 71 22 80 02/02/20 00:00 98.0 77 20 120/71 (87) 99 02/02/20 00:00 40 02/02/20 00:00 73 02/02/20 00:00 Mechanical Ventilator Mechanical Ventilator 02/02/20 00:00 120/71 02/02/20 00:00 65 02/01/20 23:15 66 17 80 02/01/20 21:26 77 129/63 02/01/20 20:00 Mechanical Ventilator Mechanical Ventilator 02/01/20 20:00 40 02/01/20 20:00 98.2 77 22 129/63 (85) 96 02/01/20 20:00 74 02/01/20 19:10 68 17 80 02/01/20 18:18 133/66 02/01/20 18:18 65 133/66 02/01/20 18:17 133/66 02/01/20 16:00 98.2 68 23 123/67 (85) 92 02/01/20 16:00 40 02/01/20 16:00 Mechanical Ventilator Mechanical Ventilator 02/01/20 15:23 67 02/01/20 15:12 69 20 40 02/01/20 12:20 112/47 02/01/20 12:00 40 02/01/20 12:00 Mechanical Ventilator Mechanical Ventilator 02/01/20 12:00 112/47 02/01/20 12:00 98.2 63 16 112/47 (68) 94 02/01/20 11:40 66 02/01/20 11:15 73 24 40 Intake and Output 02/01/20 02/02/20 19:00 07:00 Intake Total 660 ml 580 ml Output Total 100 ml 250 ml Balance 560 ml 330 ml Free Water 180 ml 140 ml Tube Feeding 480 ml 440 ml Output Urine Total 100 ml 250 ml General Appearance: no acute distress HEENT: normocephalic, other - trach Respiratory: chest wall non-tender, other - coarse lung sounds Cardiovascular: normal rate, regular rhythm Abdomen: soft, non tender Genitourinary: other - Norman Extremities: other - trace edema Laboratory Tests 02/01/20 12:31: POC Whole Blood Glucose [Pending] 02/01/20 17:01: POC Whole Blood Glucose 95 02/02/20 00:05: POC Whole Blood Glucose 104 02/02/20 04:01: White Blood Count 6.2, Red Blood Count 2.93L, Hemoglobin 8.2L, Hematocrit 25.1L, Mean Corpuscular Volume 86, Mean Corpuscular Hemoglobin 28.1, Mean Corpuscular Hemoglobin Concent 32.9, Red Cell Distribution Width 15.0H, Platelet Count 405, Mean Platelet Volume 6.6, Neutrophils (%) (Auto) 66.8, Lymphocytes (%) (Auto) 23.0, Monocytes (%) (Auto) 7.4, Eosinophils (%) (Auto) 1.6, Basophils (%) (Auto) 1.2, Sodium Level 138, Potassium Level 3.6, Chloride Level 99, Carbon Dioxide Level 28, Anion Gap 11, Blood Urea Nitrogen 100H, Creatinine 3.9H, Estimat Glomerular Filtration Rate 12.4, Glucose Level 78, Calcium Level 8.5, Phosphorus Level 5.2H, Magnesium Level 2.6H, Total Bilirubin 0.4, Aspartate Amino Transf (AST/SGOT) 24, Alanine Aminotransferase (ALT/SGPT) 13, Alkaline Phosphatase 158H , C-Reactive Protein, Quantitative 19.0H, Pro-B-Type Natriuretic Peptide [Pending], Total Protein 6.9, Albumin 1.9L, Globulin 5.0, Albumin/Globulin Ratio 0.4L 02/02/20 05:21: POC Whole Blood Glucose 77 02/02/20 06:09: POC Whole Blood Glucose 91 Current Medications Medications (Trade) Dose Ordered Sig/Penny Route PRN Reason Start Time Stop Time Status Last Admin Dose Admin Acetaminophen (Tylenol) 500 mg Q6H PRN GT FEVER 01/21/20 20:45 02/20/20 20:44 01/29/20 02:01 Acetaminophen/ Hydrocodone Bitart ([place] 5/325) 1 tab Q6H PRN GT Moderate Breakthru Pain (5-7) 01/31/20 07:45 02/07/20 07:44 02/01/20 04:22 Amantadine HCl (Symmetrel) 100 mg TWICE A DAY GT 01/31/20 18:00 03/01/20 17:59 02/02/20 09:42 Amlodipine Besylate (Norvasc) 5 mg BID GT 01/22/20 18:00 02/20/20 15:44 02/02/20 09:42 Aspirin (ASA) 81 mg DAILY GT 01/20/20 09:00 03/05/20 08:59 02/02/20 09:41 Atorvastatin Calcium (Lipitor) 10 mg BEDTIME GT 01/17/20 21:00 04/16/20 20:59 02/01/20 21:26 Chlorhexidine Gluconate (Ling-Hex 2%) 1 applic DAILY@2000 01/17/20 20:00 04/16/20 19:59 02/01/20 22:11 Dextrose (Dextrose 50%) 25 ml Q30M PRN IV Hypoglycemia 01/15/20 22:15 04/14/20 22:14 Dextrose (Dextrose 50%) 50 ml Q30M PRN IV Hypoglycemia 01/15/20 22:15 04/14/20 22:14 01/22/20 17:54 Docusate Sodium (Colace) 200 mg BIDPRN PRN GT Constipation 01/31/20 07:45 03/01/20 07:44 01/31/20 20:34 Epoetin Gelacio (Epoetin Gelacio(ESRD on dialysis)) 10,000 unit MON-MON-FRI SUBQ 01/27/20 21:00 04/26/20 20:59 01/31/20 21:19 Hydralazine HCl (Apresoline) 25 mg Q6HR GT 01/26/20 18:15 04/25/20 18:14 02/01/20 18:18 Isosorbide Dinitrate (Isordil) 20 mg TID GT 01/25/20 09:00 02/19/20 08:59 02/02/20 09:41 Lansoprazole (Prevacid) 30 mg BID GT 01/19/20 18:00 02/18/20 17:59 02/02/20 09:41 Metoclopramide HCl (Reglan) 5 mg Q6H PRN IVP Nausea & Vomiting 01/15/20 22:15 02/14/20 22:14 Metoprolol Tartrate (Lopressor) 25 mg Q12HR ORAL 01/27/20 21:00 04/22/20 20:59 02/02/20 09:42 Sodium Hypochlorite (Dakin's Quarter Strength) 1 applic DAILY TOPIC 01/30/20 09:00 02/29/20 08:59 02/02/20 09:43 Zinc Oxide (Zinc Oxide) 1 applic TIDPRN PRN TOPIC diogenes GT 01/16/20 13:15 04/15/20 13:14 01/16/20 14:55 Assessment/Plan Assessment/Plan Assessment/Plan 1. Large left effusion. - S/p thoracentesis; CXR better - pleural fluid pathology report: negative for malignant cell 2. Chronic respiratory failure. - Continue trach care - Cont AC mode - Currently saturating at 97% 3. Sepsis; improving 4. Anemia - improving - s/p transfusion - s/p Epogen - repeat stool OB pending per Dr. Mccauley s/p HD on broad-spectrum antibiotics. Pulmonary hygiene. DVT and GI prophylaxes. Elijah Stephen,Elijah Harrison MD Feb 02, 2020 10:20
[2020-02-02 12:00] VITALS: BP 143/66
--- NOTE | 2020-02-02 12:04 | Surgery Progress Note ---
Surgery Progress Note Subjective Procedure Performed Left femoral temporary hemodialysis catheter insertion Additional Comments trach peg comfortable no n/v labs noted Objective Last 24 Hour Vital Signs Date Time Temp Pulse Resp B/P (MAP) Pulse Ox O2 Delivery O2 Flow Rate FiO2 02/02/20 09:42 74 132/61 02/02/20 09:42 74 132/61 02/02/20 09:41 132/61 02/02/20 08:00 97.7 74 20 132/61 (84) 98 02/02/20 08:00 Mechanical Ventilator Mechanical Ventilator 02/02/20 08:00 80 02/02/20 07:57 79 02/02/20 05:45 117/64 02/02/20 04:00 98.2 67 20 117/64 (81) 100 02/02/20 04:00 40 02/02/20 04:00 84 02/02/20 04:00 Mechanical Ventilator Mechanical Ventilator 02/02/20 03:20 71 22 80 02/02/20 00:00 98.0 77 20 120/71 (87) 99 02/02/20 00:00 40 02/02/20 00:00 73 02/02/20 00:00 Mechanical Ventilator Mechanical Ventilator 02/02/20 00:00 120/71 02/02/20 00:00 65 02/01/20 23:15 66 17 80 02/01/20 21:26 77 129/63 02/01/20 20:00 Mechanical Ventilator Mechanical Ventilator 02/01/20 20:00 40 02/01/20 20:00 98.2 77 22 129/63 (85) 96 02/01/20 20:00 74 02/01/20 19:10 68 17 80 02/01/20 18:18 133/66 02/01/20 18:18 65 133/66 02/01/20 18:17 133/66 02/01/20 16:00 98.2 68 23 123/67 (85) 92 02/01/20 16:00 40 02/01/20 16:00 Mechanical Ventilator Mechanical Ventilator 02/01/20 15:23 67 02/01/20 15:12 69 20 40 02/01/20 12:20 112/47 I&O Intake and Output 02/01/20 02/02/20 19:00 07:00 Intake Total 660 ml 580 ml Output Total 100 ml 250 ml Balance 560 ml 330 ml Free Water 180 ml 140 ml Tube Feeding 480 ml 440 ml Output Urine Total 100 ml 250 ml Dressing: saturated Cardiovascular: RSR Respiratory: decreased breath sounds Abdomen: non-tender, present bowel sounds Extremities: edema, no tenderness, no cyanosis, pulses, other Laboratory Tests Test 02/01/20 12:31 02/01/20 17:01 02/02/20 00:05 02/02/20 04:01 POC Whole Blood Glucose Pending 95 MG/DL (74-106) 104 MG/DL (74-106) White Blood Count 6.2 K/UL (4.8-10.8) Red Blood Count 2.93 M/UL (4.20-5.40) L Hemoglobin 8.2 G/DL (12.0-16.0) L Hematocrit 25.1 % (37.0-47.0) L Mean Corpuscular Volume 86 FL (80-99) Mean Corpuscular Hemoglobin 28.1 PG (27.0-31.0) Mean Corpuscular Hemoglobin Concent 32.9 G/DL (32.0-36.0) Red Cell Distribution Width 15.0 % (11.6-14.8) H Platelet Count 405 K/UL (150-450) Mean Platelet Volume 6.6 FL (6.5-10.1) Neutrophils (%) (Auto) 66.8 % (45.0-75.0) Lymphocytes (%) (Auto) 23.0 % (20.0-45.0) Monocytes (%) (Auto) 7.4 % (1.0-10.0) Eosinophils (%) (Auto) 1.6 % (0.0-3.0) Basophils (%) (Auto) 1.2 % (0.0-2.0) Sodium Level 138 MMOL/L (136-145) Potassium Level 3.6 MMOL/L (3.5-5.1) Chloride Level 99 MMOL/L (98-107) Carbon Dioxide Level 28 MMOL/L (21-32) Anion Gap 11 mmol/L (5-15) Blood Urea Nitrogen 100 mg/dL (7-18) H Creatinine 3.9 MG/DL (0.55-1.30) H Estimat Glomerular Filtration Rate 12.4 mL/min (>60) Glucose Level 78 MG/DL (74-106) Calcium Level 8.5 MG/DL (8.5-10.1) Phosphorus Level 5.2 MG/DL (2.5-4.9) H Magnesium Level 2.6 MG/DL (1.8-2.4) H Total Bilirubin 0.4 MG/DL (0.2-1.0) Aspartate Amino Transf (AST/SGOT) 24 U/L (15-37) Alanine Aminotransferase (ALT/SGPT) 13 U/L (12-78) Alkaline Phosphatase 158 U/L (46-116) H C-Reactive Protein, Quantitative 19.0 mg/dL (0.00-0.90) H Pro-B-Type Natriuretic Peptide Pending Total Protein 6.9 G/DL (6.4-8.2) Albumin 1.9 G/DL (3.4-5.0) L Globulin 5.0 g/dL Albumin/Globulin Ratio 0.4 (1.0-2.7) L Test 02/02/20 05:21 02/02/20 06:09 POC Whole Blood Glucose 77 MG/DL (74-106) 91 MG/DL (74-106) Plan Problems: (1) Dehydration (2) Acidosis (3) Depression (4) Pleural effusion (5) Respiratory failure (6) Schizophrenia (7) Hypoxia (8) UTI (urinary tract infection) (9) Pneumonia (10) NSTEMI (non-ST elevated myocardial infarction) (11) Tracheostomy in place (12) Feeding by G-tube (13) JAVIER (acute kidney injury) (14) Acute encephalopathy (15) Sacral decubitus ulcer, stage IV (16) Chronic respiratory failure (17) Ascites (18) Bacteremia (19) Hypernatremia (20) Proteinuria (21) Electrolyte imbalance (22) ACS (acute coronary syndrome) (23) Aortic dissection, thoracic (24) Respiratory failure, acute and chronic (25) JAVIER (acute kidney injury) (26) Abrasion of lip, initial encounter (27) COPD with exacerbation (28) Elevated alkaline phosphatase level (29) Renal failure (ARF), acute on chronic (30) HCAP (healthcare-associated pneumonia) (31) GT CLOGGED (32) Elevated lipase (33) Pancreatitis (34) Elevated troponin (35) Hypokalemia (36) Hyponatremia (37) Anemia (38) Renal failure (39) ARF (acute renal failure) (40) Pacemaker (41) Sepsis Assessment & Plan: leukocytosis anemia on HD renal insufficiency wounds addressed pancreatitis cont diet as tolerating trend labs lf'ts okay pt presented on admission with Tracheostomy ,GT and Multiple Pressure Injuries. Skin assessment of skin under tracheal collar without evidence of skin breakdown. Peristomal GT site excoriated.Moderate amt of dark red sanguineous exudate. Full Thickness Sacral Pressure Injury with undermined borders (L)9 cm x (W)12cm x (D)1.8cm,Undermining clockwise8-9 by 2.2cm @1o'clock,undermining clockwise 1-4 by 1.9 @ 9'oclock Scattered necrotic tissue within wound bed. Borders are loose and necrotic with marginal erythema to outer perimeter of wound. NO elevation in skin temp noted periwound. Wound is malodorous. Small amt Brown exudate noted. Resolving Pressure Injury L Ischium(L)1.5cm x (W)1.5cm. Base of wound is 80% pink epithelial with an area that is moist and pink. NO odor or exudate noted. Bilat foot-drop noted. L Heel is boggy with non-blanchable erythema(L)4cm x (W)4cm. R heel is boggy with non-Blanchable erythema(L)5cm x (W)6cm. Tx.Plan: Cleanse sacral wound with Dakin's 0.125% annie. Loosely pack with Dakin's moistened Kerlix(Attention to undermined borders). Apply Moisture Barrier Paste periwound. Cover with Optifoam drsg. Change Daily and PRN. Apply Cavilon Skin Barrier to R and L Hels. Cover each heel with Optifoam drsg. Change every 7 days and prn. Reposition at least every 2hours or as tolerated. Off-load heels with Pillow. APM/JENNIFER MAttress overlay DAILY ESTIMATED NEEDS: Needs based on Critical care, wound, renal dysfunction 56 kg abw 28-33 kcals/kg 5740-8317 total kcals W/ HD (1.5-2.0) g protein/kg 84-112 g total protein Fluid per MD mL/kg . total fluid mLs NUTRITION DIAGNOSIS: * Swallowing difficulty R/T dysphagia, respiratory status as evidenced by vent dep via trach, GT Dep. * Increase kcal and pro needs r/t wound healing, renal dysfunction as evidenced by admitted w/ large, advanced sacral wound, previously stage 4, pending eval, admitted w/ JAVIER, pending HD. CURRENT TF:NPO ENTERAL NUTRITION RECOMMENDATIONS: Nepro @ 40ml/hr x 24 hrs + Prosource 1pkt QD to provide 960ml, 1728kcal, 78g+11g prot, 698ml free water * As medically appropriate, initiate TF on Nepro, rec goal rate fo 40ml/hr x 24 hrs * Add Prosource 1pkt QD to better meet increased protein needs (additional 11g prot) * Water flush per MD/ HOB over 30 degrees ADDITIONAL RECOMMENDATIONS: * Per SNF in NOV 2019: HT=63"/ Rec daily calibrated bedscale wt * Monitor for continuity of HD: non-tunneled cath placement ordered * Monitor lytes and renal fxn for improvement (Na low, K and phos elevated) * Wound care: add Nephrovite x 1, ZnSO4 220mg QD x 10 days Reynaldo BID via PEG (mix w/ 2-4 oz water) * Monitor BG closely for hypoglycemia while NPO (h/o DM, on Nacl 3% to correct hyponatremia, consider accuchecks) (42) Hyponatremia Lane Saavedra Feb 02, 2020 12:04
--- NOTE | 2020-02-02 15:38 | General Progress Note ---
Subjective Allergies: Coded Allergies: No Known Allergies (Unverified , 10/10/17) Subjective Above noted no events non communicative Tolerating TF Objective Last 24 Hour Vital Signs Date Time Temp Pulse Resp B/P (MAP) Pulse Ox O2 Delivery O2 Flow Rate FiO2 02/02/20 12:39 143/66 02/02/20 12:39 143/66 02/02/20 12:03 69 02/02/20 12:00 Mechanical Ventilator Mechanical Ventilator 02/02/20 12:00 97.9 79 20 143/66 (91) 96 02/02/20 12:00 80 02/02/20 09:42 74 132/61 02/02/20 09:42 74 132/61 02/02/20 09:41 132/61 02/02/20 08:00 97.7 74 20 132/61 (84) 98 02/02/20 08:00 Mechanical Ventilator Mechanical Ventilator 02/02/20 08:00 80 02/02/20 07:57 79 02/02/20 05:45 117/64 02/02/20 04:00 98.2 67 20 117/64 (81) 100 02/02/20 04:00 40 02/02/20 04:00 84 02/02/20 04:00 Mechanical Ventilator Mechanical Ventilator 02/02/20 03:20 71 22 80 02/02/20 00:00 98.0 77 20 120/71 (87) 99 02/02/20 00:00 40 02/02/20 00:00 73 02/02/20 00:00 Mechanical Ventilator Mechanical Ventilator 02/02/20 00:00 120/71 02/02/20 00:00 65 02/01/20 23:15 66 17 80 02/01/20 21:26 77 129/63 02/01/20 20:00 Mechanical Ventilator Mechanical Ventilator 02/01/20 20:00 40 02/01/20 20:00 98.2 77 22 129/63 (85) 96 02/01/20 20:00 74 02/01/20 19:10 68 17 80 20 18:18 133/66 02/01/20 18:18 65 133/66 02/01/20 18:17 133/66 02/01/20 16:00 98.2 68 23 123/67 (85) 92 02/01/20 16:00 40 02/01/20 16:00 Mechanical Ventilator Mechanical Ventilator Intake and Output 02/01/20 02/02/20 19:00 07:00 Intake Total 660 ml 580 ml Output Total 100 ml 250 ml Balance 560 ml 330 ml Free Water 180 ml 140 ml Tube Feeding 480 ml 440 ml Output Urine Total 100 ml 250 ml Laboratory Tests 02/01/20 17:01: POC Whole Blood Glucose 95 02/02/20 00:05: POC Whole Blood Glucose 104 02/02/20 04:01: White Blood Count 6.2, Red Blood Count 2.93L, Hemoglobin 8.2L, Hematocrit 25.1L, Mean Corpuscular Volume 86, Mean Corpuscular Hemoglobin 28.1, Mean Corpuscular Hemoglobin Concent 32.9, Red Cell Distribution Width 15.0H, Platelet Count 405, Mean Platelet Volume 6.6, Neutrophils (%) (Auto) 66.8, Lymphocytes (%) (Auto) 23.0, Monocytes (%) (Auto) 7.4, Eosinophils (%) (Auto) 1.6, Basophils (%) (Auto) 1.2, Sodium Level 138, Potassium Level 3.6, Chloride Level 99, Carbon Dioxide Level 28, Anion Gap 11, Blood Urea Nitrogen 100H, Creatinine 3.9H, Estimat Glomerular Filtration Rate 12.4, Glucose Level 78, Calcium Level 8.5, Phosphorus Level 5.2H, Magnesium Level 2.6H, Total Bilirubin 0.4, Aspartate Amino Transf (AST/SGOT) 24, Alanine Aminotransferase (ALT/SGPT) 13, Alkaline Phosphatase 158H , C-Reactive Protein, Quantitative 19.0H, Pro-B-Type Natriuretic Peptide [Pending], Total Protein 6.9, Albumin 1.9L, Globulin 5.0, Albumin/Globulin Ratio 0.4L 02/02/20 05:21: POC Whole Blood Glucose 77 02/02/20 06:09: POC Whole Blood Glucose 91 02/02/20 12:19: POC Whole Blood Glucose 80 Height (Feet): 5 Height (Inches): 6.00 Weight (Pounds): 150 Objective NCAT (+) trach Coarse BS RR soft ND NT no edema Assessment/Plan Assessment/Plan: Assessment/Plan (1) Hx of CABG (2) Resp failure, s/p tracheostomy (3) Dysphagia, s/p PEG (4) S/P aortic dissection repair (5) Renal failure (6) Anemia Assessment/Plan: stable H&H follow labs GT Feeding HD per nephrology ct reviewed Edmund Farris MD Feb 02, 2020 15:38
--- NOTE | 2020-02-02 15:49 | Nephrology Progress Note ---
Assessment/Plan Problem List: (1) ARF (acute renal failure) (2) Pacemaker (3) Sepsis (4) Hyponatremia Assessment (1) JAVIER (acute kidney injury) (2) Renal failure (ARF), acute on chronic (3) Feeding by G-tube (4) Tracheostomy in place (5) Electrolyte imbalance, hyponatremia (6) Anemia, severe (7) Respiratory failure, acute and chronic (8) Elevated lipase, pancreatitis (9) Elevated troponin I (10) Sepsis Plan February 01: Labs reviewed. Creatinine gradually rising. Will dialyze as needed. Continue to monitor renal parameters. January 31: Last dialysis January 29. Labs reviewed. No need for dialysis today. Continue per current management. Hemodialysis as needed. Will check renal parameters and chemistries tomorrow. January 30: Patient was dialyzed yesterday. No labs drawn today. Continue to monitor renal parameters and dialyze as needed. Continue per consultants and PMD. January 29: Patient due for dialysis today. Today's can panel reviewed. Continue to monitor renal parameters and dialysis as needed. January 28: Patient last dialyzed January 26. No labs drawn today. Will order dialysis tomorrow. Check chemistry panel tomorrow. Continue per consultants. January 27: Patient was dialyzed yesterday . Labs were reviewed. Electrolytes within normal limit. Blood pressure stable. January 26: When visited the patient earlier today the patient was on dialysis. Tolerating well. Labs reviewed. Blood pressure stable. January 25: Dialysis for tomorrow. Labs reviewed. Hemoglobin remains low. Will adjust blood pressure medication. Hydralazine added to the regimen January 24: Last dialyzed January 22. Labs reviewed. Status quo. Will dialyze as needed. Low hemoglobin noted. Transfusion per PMD decision. Epogen started. \January 23: Dialyzed yesterday. Today's labs reviewed. Continue to monitor renal parameters and arrange for dialysis as needed. Continue per PMD. January 22: Seen earlier during dialysis. Labs reviewed. Medication list reviewed. Continue current management. January 21: Labs reviewed. Medication list reviewed. Next hemodialysis tomorrow. Blood pressure medication adjusted. January 20: Dialyzed yesterday. Labs reviewed. Continue per current management. Dialysis as needed. Add Norvasc to blood pressure regimen January 19: Due for dialysis today. Labs reviewed. Continue her current management. Continue to monitor renal parameters and electrolytes. January 18: Dialyzed yesterday. Labs reviewed. Renal parameters electrolytes much improved. Dialysis again tomorrow. Continue rest. January 17: Dialyzed this morning. Labs reviewed. Renal parameters and electrolyte abnormalities improved. Discussed with RN. Continue per c onsultants. January 16: Dialyzed yesterday. Labs improved. Next dialysis tomorrow. Continue per consultants. January 15: Patient to have dialysis catheter. Emergency dialysis for correction of uremia and electrolyte imbalances Antibiotics Transfusion Continue to monitor renal parameters Per orders Discussed with RN Subjective ROS Limited/Unobtainable: Yes Objective Objective Last 24 Hour Vital Signs Date Time Temp Pulse Resp B/P (MAP) Pulse Ox O2 Delivery O2 Flow Rate FiO2 02/02/20 12:39 143/66 02/02/20 12:39 143/66 02/02/20 12:03 69 02/02/20 12:00 Mechanical Ventilator Mechanical Ventilator 02/02/20 12:00 97.9 79 20 143/66 (91) 96 02/02/20 12:00 80 02/02/20 09:42 74 132/61 02/02/20 09:42 74 132/61 02/02/20 09:41 132/61 02/02/20 08:00 97.7 74 20 132/61 (84) 98 02/02/20 08:00 Mechanical Ventilator Mechanical Ventilator 02/02/20 08:00 80 02/02/20 07:57 79 02/02/20 05:45 117/64 02/02/20 04:00 98.2 67 20 117/64 (81) 100 02/02/20 04:00 40 02/02/20 04:00 84 02/02/20 04:00 Mechanical Ventilator Mechanical Ventilator 02/02/20 03:20 71 22 80 02/02/20 00:00 98.0 77 20 120/71 (87) 99 02/02/20 00:00 40 02/02/20 00:00 73 02/02/20 00:00 Mechanical Ventilator Mechanical Ventilator 02/02/20 00:00 120/71 02/02/20 00:00 65 02/01/20 23:15 66 17 80 02/01/20 21:26 77 129/63 02/01/20 20:00 Mechanical Ventilator Mechanical Ventilator 02/01/20 20:00 40 02/01/20 20:00 98.2 77 22 129/63 (85) 96 02/01/20 20:00 74 02/01/20 19:10 68 17 80 02/01/20 18:18 133/66 02/01/20 18:18 65 133/66 02/01/20 18:17 133/66 02/01/20 16:00 98.2 68 23 123/67 (85) 92 02/01/20 16:00 40 02/01/20 16:00 Mechanical Ventilator Mechanical Ventilator Intake and Output 02/01/20 02/02/20 19:00 07:00 Intake Total 660 ml 620 ml Output Total 100 ml 250 ml Balance 560 ml 370 ml Free Water 180 ml 140 ml Tube Feeding 480 ml 480 ml Output Urine Total 100 ml 250 ml Current Medications Medications (Trade) Dose Ordered Sig/Penny Route PRN Reason Start Time Stop Time Status Last Admin Dose Admin Acetaminophen (Tylenol) 500 mg Q6H PRN GT FEVER 01/21/20 20:45 02/20/20 20:44 01/29/20 02:01 Acetaminophen/ Hydrocodone Bitart (Nicholson 5/325) 1 tab Q6H PRN GT Moderate Breakthru Pain (5-7) 01/31/20 07:45 02/07/20 07:44 02/01/20 04:22 Amantadine HCl (Symmetrel) 100 mg TWICE A DAY GT 01/31/20 18:00 03/01/20 17:59 02/02/20 09:42 Amlodipine Besylate (Norvasc) 5 mg BID GT 01/22/20 18:00 02/20/20 15:44 02/02/20 09:42 Aspirin (ASA) 81 mg DAILY GT 01/20/20 09:00 03/05/20 08:59 02/02/20 09:41 Atorvastatin Calcium (Lipitor) 10 mg BEDTIME GT 01/17/20 21:00 04/16/20 20:59 02/01/20 21:26 Chlorhexidine Gluconate (Ling-Hex 2%) 1 applic DAILY@1999 TOPIC 01/17/20 20:00 04/16/20 19:59 02/01/20 22:11 Dextrose (Dextrose 50%) 25 ml Q30M PRN IV Hypoglycemia 01/15/20 22:15 04/14/20 22:14 Dextrose (Dextrose 50%) 50 ml Q30M PRN IV Hypoglycemia 01/15/20 22:15 04/14/20 22:14 01/22/20 17:54 Docusate Sodium (Colace) 200 mg BIDPRN PRN GT Constipation 01/31/20 07:45 03/01/20 07:44 01/31/20 20:34 Epoetin Gelacio (Epoetin Gelacio(ESRD on dialysis)) 10,000 unit MON- SUBQ 01/27/20 21:00 04/26/20 20:59 01/31/20 21:19 Hydralazine HCl (Apresoline) 25 mg Q6HR GT 01/26/20 18:15 04/25/20 18:14 02/02/20 12:39 Isosorbide Dinitrate (Isordil) 20 mg TID GT 01/25/20 09:00 02/19/20 08:59 02/02/20 12:39 Lansoprazole (Prevacid) 30 mg BID GT 01/19/20 18:00 02/18/20 17:59 02/02/20 09:41 Metoclopramide HCl (Reglan) 5 mg Q6H PRN IVP Nausea & Vomiting 01/15/20 22:15 02/14/20 22:14 Metoprolol Tartrate (Lopressor) 25 mg Q12HR ORAL 01/27/20 21:00 04/22/20 20:59 02/02/20 09:42 Sodium Hypochlorite (Dakin's Quarter Strength) 1 applic DAILY TOPIC 01/30/20 09:00 02/29/20 08:59 02/02/20 09:43 Zinc Oxide (Zinc Oxide) 1 applic TIDPRN PRN TOPIC diogenes GT 01/16/20 13:15 04/15/20 13:14 01/16/20 14:55 Laboratory Tests 02/01/20 17:01: POC Whole Blood Glucose 95 02/02/20 00:05: POC Whole Blood Glucose 104 02/02/20 04:01: White Blood Count 6.2, Red Blood Count 2.93L, Hemoglobin 8.2L, Hematocrit 25.1L, Mean Corpuscular Volume 86, Mean Corpuscular Hemoglobin 28.1, Mean Corpuscular Hemoglobin Concent 32.9, Red Cell Distribution Width 15.0H, Platelet Count 405, Mean Platelet Volume 6.6, Neutrophils (%) (Auto) 66.8, Lymphocytes (%) (Auto) 23.0, Monocytes (%) (Auto) 7.4, Eosinophils (%) (Auto) 1.6, Basophils (%) (Auto) 1.2, Sodium Level 138, Potassium Level 3.6, Chloride Level 99, Carbon Dioxide Level 28, Anion Gap 11, Blood Urea Nitrogen 100H, Creatinine 3.9H, Estimat Glomerular Filtration Rate 12.4, Glucose Level 78, Calcium Level 8.5, Phosphorus Level 5.2H, Magnesium Level 2.6H, Total Bilirubin 0.4, Aspartate Amino Transf (AST/SGOT) 24, Alanine Aminotransferase (ALT/SGPT) 13, Alkaline Phosphatase 158H , C-Reactive Protein, Quantitative 19.0H, Pro-B-Type Natriuretic Peptide [Pending], Total Protein 6.9, Albumin 1.9L, Globulin 5.0, Albumin/Globulin Ratio 0.4L 02/02/20 05:21: POC Whole Blood Glucose 77 02/02/20 06:09: POC Whole Blood Glucose 91 02/02/20 12:19: POC Whole Blood Glucose 80 Height (Feet): 5 Height (Inches): 6.00 Weight (Pounds): 150 General Appearance: no apparent distress EENT: other - Trach to vent Cardiovascular: normal rate Respiratory/Chest: decreased breath sounds Abdomen: distended Johnny Houston MD Feb 02, 2020 15:49
[2020-02-02 16:00] VITALS: BP 142/62
[2020-02-02] MEDS: HYDROcodone/Acetamin 5/325 tab GT PRN ×2 (16:00→20:39)
--- NOTE | 2020-02-02 18:54 | NUR ---
NURSE NOTES: G TUBE DRESSING AND WOUND TREATMENT DONE ORDER AND PT TOLERATED WELL. WILL CONTINUE TO MONITOR.
--- NOTE | 2020-02-02 19:10 | NUR ---
RESPIRATORY NOTE: PT RECEIVED STABLE ON CMV WITH CURRENT SETTINGS: AC/VC 14, 500, 80%, +5. ALARMS ARE ON AND AUDIBLE. VENT CIRCUIT IS SECURE AND OUT OF THE WAY. AIRWAY IS MIDLINE SECURE AND PATENT. NO S/S OF RESPIRATORY DISTRESS NOTED AT THIS TIME WILL CONTINUE TO CLOSELY MONITOR.
--- NOTE | 2020-02-02 19:34 | NUR ---
NURSE HAND-OFF REPORT: Important Events on Shift: Patient Status: Diet: Pending Orders: Pending Results/Labs: Pending MD notification: Latest Vital Signs: Temperature 98.4 , Pulse 78 , B/P 142 /62 , Respiratory Rate 20 , O2 SAT 97 , Mechanical Ventilator, O2 Flow Rate . Vital Sign Comment: EKG Rhythm: Sinus Rhythm Rhythm change?: N MD Notified?: Gabriel Willams MD Response: Order Received& Read Back Latest Chavarria Fall Score: 70 Fall Risk: High Risk Safety Measures: Call light Within Reach, Bed Alarm Zone 1, Side Rails Side Rails x3, Bed position Low and Locked. Fall Precautions: Yellow Socks Report given to . Pt is awake and stable, no stress noted. Endorsed plan of care.
[2020-02-02 20:00] VITALS: BP 143/75
[2020-02-02] MEDS: Dyna-Hex 2% Top Sol 2oz TOPIC SCH (20:37)
--- NOTE | 2020-02-02 20:53 | General Progress Note ---
Subjective Constitutional: Reports: malaise HEENT: Reports: no symptoms Cardiovascular: Reports: no symptoms Respiratory: Reports: no symptoms Gastrointestinal/Abdominal: Reports: no symptoms Genitourinary: Reports: no symptoms Neurologic/Psychiatric: Reports: anxiety, depressed Endocrine: Reports: no symptoms Hematologic/Lymphatic: Reports: no symptoms Allergies: Coded Allergies: No Known Allergies (Unverified , 10/10/17) Objective Last 24 Hour Vital Signs Date Time Temp Pulse Resp B/P (MAP) Pulse Ox O2 Delivery O2 Flow Rate FiO2 02/02/20 20:38 84 143/75 02/02/20 19:10 84 21 80 02/02/20 18:06 142/62 02/02/20 18:06 142/62 02/02/20 18:06 78 142/62 02/02/20 16:00 98.4 78 20 142/62 (88) 97 02/02/20 16:00 80 02/02/20 16:00 Mechanical Ventilator Mechanical Ventilator 02/02/20 15:48 83 02/02/20 14:35 77 22 80 02/02/20 12:39 143/66 02/02/20 12:39 143/66 02/02/20 12:03 69 02/02/20 12:00 Mechanical Ventilator Mechanical Ventilator 02/02/20 12:00 97.9 79 20 143/66 (91) 96 02/02/20 12:00 80 02/02/20 10:35 75 22 80 02/02/20 09:42 74 132/61 02/02/20 09:42 74 132/61 02/02/20 09:41 132/61 02/02/20 08:00 97.7 74 20 132/61 (84) 98 02/02/20 08:00 Mechanical Ventilator Mechanical Ventilator 02/02/20 08:00 80 02/02/20 07:57 79 02/02/20 07:05 77 20 80 02/02/20 05:45 117/64 02/02/20 04:00 98.2 67 20 117/64 (81) 100 02/02/20 04:00 40 02/02/20 04:00 84 02/02/20 04:00 Mechanical Ventilator Mechanical Ventilator 02/02/20 03:20 71 22 80 02/02/20 00:00 98.0 77 20 120/71 (87) 99 02/02/20 00:00 40 02/02/20 00:00 73 02/02/20 00:00 Mechanical Ventilator Mechanical Ventilator 02/02/20 00:00 120/71 02/02/20 00:00 65 02/01/20 23:15 66 17 80 02/01/20 21:26 77 129/63 Intake and Output 02/01/20 02/02/20 19:00 07:00 Intake Total 660 ml 620 ml Output Total 100 ml 250 ml Balance 560 ml 370 ml Free Water 180 ml 140 ml Tube Feeding 480 ml 480 ml Output Urine Total 100 ml 250 ml Laboratory Tests 02/02/20 00:05: POC Whole Blood Glucose 104 02/02/20 04:01: White Blood Count 6.2, Red Blood Count 2.93L, Hemoglobin 8.2L, Hematocrit 25.1L, Mean Corpuscular Volume 86, Mean Corpuscular Hemoglobin 28.1, Mean Corpuscular Hemoglobin Concent 32.9, Red Cell Distribution Width 15.0H, Platelet Count 405, Mean Platelet Volume 6.6, Neutrophils (%) (Auto) 66.8, Lymphocytes (%) (Auto) 23.0, Monocytes (%) (Auto) 7.4, Eosinophils (%) (Auto) 1.6, Basophils (%) (Auto) 1.2, Sodium Level 138, Potassium Level 3.6, Chloride Level 99, Carbon Dioxide Level 28, Anion Gap 11, Blood Urea Nitrogen 100H, Creatinine 3.9H, Estimat Glomerular Filtration Rate 12.4, Glucose Level 78, Calcium Level 8.5, Phosphorus Level 5.2H, Magnesium Level 2.6H, Total Bilirubin 0.4, Aspartate Amino Transf (AST/SGOT) 24, Alanine Aminotransferase (ALT/SGPT) 13, Alkaline Phosphatase 158H , C-Reactive Protein, Quantitative 19.0H, Pro-B-Type Natriuretic Peptide [Pending], Total Protein 6.9, Albumin 1.9L, Globulin 5.0, Albumin/Globulin Ratio 0.4L 02/02/20 05:21: POC Whole Blood Glucose 77 02/02/20 06:09: POC Whole Blood Glucose 91 02/02/20 12:19: POC Whole Blood Glucose 80 Height (Feet): 5 Height (Inches): 6.00 Weight (Pounds): 150 General Appearance: lethargic, mild distress EENT: TMs normal Neck: supple Cardiovascular: normal rate, regular rhythm, no gallop/murmur, no JVD Respiratory/Chest: lungs clear, rhonchi - bilaterally Abdomen: normal bowel sounds, non tender, soft, no organomegaly, no mass Extremities: non-tender Neurologic: alert, responsive, aphasia, other - Body Assessment/Plan Status Narrative Patient is awake alert afebrile hemodynamically stable her mood varies from day to day yesterday she was smiling and attempt to communicate today she is tearful she has been off antibiotic now for the last 24 hours she is afebrile without leukocytosis her tremor today completely resolved not in the head and not in upper extremities repeat laboratory tests will be done in a.m. M to find out thecause of the patient depression today repeat laboratory tests will be done in a.m. Lucas Canales MD, MD Feb 02, 2020 20:53
--- NOTE | 2020-02-02 21:00 | NUR ---
NURSE NOTES: Seen and examined by Dr. Dong. Noted patient with pain, instructed to give PRN pain medication at this time. Noted and carried out. Will continue to monitor.
--- NOTE | 2020-02-02 22:00 | NUR ---
NURSE NOTES: Received new order from Dr. Willams, Noted and carried out.
--- NOTE | 2020-02-02 22:05 | Cardiology Progress Note ---
Subjective DATE OF SERVICE: Feb 02, 2020 Remains in atrial fibrillation; rates controlled. Occasional PVC's - non- sustained BP range stable Full vent support via trach s/p left thorocentesis 01/22/20 Low hemoglobin; on epogen Objective Last 24 Hour Vital Signs Date Time Temp Pulse Resp B/P (MAP) Pulse Ox O2 Delivery O2 Flow Rate FiO2 02/02/20 20:38 84 143/75 02/02/20 20:00 83 02/02/20 20:00 80 02/02/20 19:10 84 21 80 02/02/20 18:06 142/62 02/02/20 18:06 142/62 02/02/20 18:06 78 142/62 02/02/20 16:00 98.4 78 20 142/62 (88) 97 02/02/20 16:00 80 02/02/20 16:00 Mechanical Ventilator Mechanical Ventilator 02/02/20 15:48 83 02/02/20 14:35 77 22 80 02/02/20 12:39 143/66 02/02/20 12:39 143/66 02/02/20 12:03 69 02/02/20 12:00 Mechanical Ventilator Mechanical Ventilator 02/02/20 12:00 97.9 79 20 143/66 (91) 96 02/02/20 12:00 80 02/02/20 10:35 75 22 80 02/02/20 09:42 74 132/61 02/02/20 09:42 74 132/61 02/02/20 09:41 132/61 02/02/20 08:00 97.7 74 20 132/61 (84) 98 02/02/20 08:00 Mechanical Ventilator Mechanical Ventilator 02/02/20 08:00 80 02/02/20 07:57 79 02/02/20 07:05 77 20 80 02/02/20 05:45 117/64 02/02/20 04:00 98.2 67 20 117/64 (81) 100 02/02/20 04:00 40 02/02/20 04:00 84 02/02/20 04:00 Mechanical Ventilator Mechanical Ventilator 02/02/20 03:20 71 22 80 02/02/20 00:00 98.0 77 20 120/71 (87) 99 02/02/20 00:00 40 02/02/20 00:00 73 02/02/20 00:00 Mechanical Ventilator Mechanical Ventilator 02/02/20 00:00 120/71 02/02/20 00:00 65 02/01/20 23:15 66 17 80 ROS: unchanged for 01/17/20 HEENT: Mechanically Ventilated, Thick Trach secretions RHYTHM: Afib LUNGS: bilateral rhonchi, trach site clean CARDIAC: normal S1 and S2, irregularly irregular ABDOMEN: normal bowel sounds, non tender, soft, G-Tube intact EXTREMITIES: normal inspection, trace edema Laboratory Tests Test 02/02/20 00:05 02/02/20 04:01 02/02/20 05:21 02/02/20 06:09 POC Whole Blood Glucose 104 MG/DL (74-106) 77 MG/DL (74-106) 91 MG/DL (74-106) White Blood Count 6.2 K/UL (4.8-10.8) Red Blood Count 2.93 M/UL (4.20-5.40) L Hemoglobin 8.2 G/DL (12.0-16.0) L Hematocrit 25.1 % (37.0-47.0) L Mean Corpuscular Volume 86 FL (80-99) Mean Corpuscular Hemoglobin 28.1 PG (27.0-31.0) Mean Corpuscular Hemoglobin Concent 32.9 G/DL (32.0-36.0) Red Cell Distribution Width 15.0 % (11.6-14.8) H Platelet Count 405 K/UL (150-450) Mean Platelet Volume 6.6 FL (6.5-10.1) Neutrophils (%) (Auto) 66.8 % (45.0-75.0) Lymphocytes (%) (Auto) 23.0 % (20.0-45.0) Monocytes (%) (Auto) 7.4 % (1.0-10.0) Eosinophils (%) (Auto) 1.6 % (0.0-3.0) Basophils (%) (Auto) 1.2 % (0.0-2.0) Sodium Level 138 MMOL/L (136-145) Potassium Level 3.6 MMOL/L (3.5-5.1) Chloride Level 99 MMOL/L (98-107) Carbon Dioxide Level 28 MMOL/L (21-32) Anion Gap 11 mmol/L (5-15) Blood Urea Nitrogen 100 mg/dL (7-18) H Creatinine 3.9 MG/DL (0.55-1.30) H Estimat Glomerular Filtration Rate 12.4 mL/min (>60) Glucose Level 78 MG/DL (74-106) Calcium Level 8.5 MG/DL (8.5-10.1) Phosphorus Level 5.2 MG/DL (2.5-4.9) H Magnesium Level 2.6 MG/DL (1.8-2.4) H Total Bilirubin 0.4 MG/DL (0.2-1.0) Aspartate Amino Transf (AST/SGOT) 24 U/L (15-37) Alanine Aminotransferase (ALT/SGPT) 13 U/L (12-78) Alkaline Phosphatase 158 U/L (46-116) H C-Reactive Protein, Quantitative 19.0 mg/dL (0.00-0.90) H Pro-B-Type Natriuretic Peptide Pending Total Protein 6.9 G/DL (6.4-8.2) Albumin 1.9 G/DL (3.4-5.0) L Globulin 5.0 g/dL Albumin/Globulin Ratio 0.4 (1.0-2.7) L Test 02/02/20 12:19 POC Whole Blood Glucose 80 MG/DL (74-106) Assessment/Plan Assessment/Plan Chronic respiratory failure with trach Severe sepsis PAFib with rapid ventric response. Ischemic cardiomyopathy - hx CABG and s/p NSTEMI in Dec 2019. Conduction system disease of the heart Hx of permanent pacemaker explant Acute on chronic systolic and diastolic CHF Pleural effusion Anemia Hypertension/HHD with labile BP. Acute/chronic renal failure Avoid beta flori therapy based on risk of bradycardia. Anti-failure and anti-anginal regimen with titration Vent support Abx per ID Continuous cardiac monitoring Anti-HTN regimen being titrated. Transfuse for further drop in hemoglobin Additional potassium ordered Deni Willams MD Feb 02, 2020 22:05
[2020-02-03] VITALS (7 sets, daily range): BP systolic 125–145; BP diastolic 53–93
[2020-02-03 05:47] LABS: EOSINOPHILS % (AUTO) 1.6 % (0.0-3.0); HEMATOCRIT 25.2 % (37.0-47.0); HEMOGLOBIN 8.5 G/DL (12.0-16.0); LYMPHOCYTES % (AUTO) 25.7 % (20.0-45.0); MEAN CORPUSCULAR VOLUME 84 FL (80-99); MONOCYTES % (AUTO) 7.7 % (1.0-10.0); PLATELET COUNT 447 K/UL (150-450); RED CELL DISTRIBUTION WIDTH 14.2 % (11.6-14.8); WHITE BLOOD COUNT 5.7 K/UL (4.8-10.8)
[2020-02-03] MEDS: HydrALAZINE 25mg tab GT SCH ×4 (05:59→17:28)
[2020-02-03 06:53] LABS: ALANINE AMINOTRANSFERASE 12 U/L (12-78); ALBUMIN 1.9 G/DL (3.4-5.0); ALBUMIN/GLOBULIN RATIO 0.4 (1.0-2.7); ALKALINE PHOSPHATASE 166 U/L (46-116); ANION GAP 12 mmol/L (5-15); ASPARTATE AMINO TRANSFERASE 29 U/L (15-37); BILIRUBIN,TOTAL 0.4 MG/DL (0.2-1.0); BLOOD UREA NITROGEN 105 mg/dL (7-18); CALCIUM 8.9 MG/DL (8.5-10.1); CARBON DIOXIDE 27 MMOL/L (21-32); CHLORIDE 97 MMOL/L (98-107); CREATININE 4.1 MG/DL (0.55-1.30); PHOSPHORUS 5.1 MG/DL (2.5-4.9); POTASSIUM 3.7 MMOL/L (3.5-5.1); SODIUM 136 MMOL/L (136-145)
--- NOTE | 2020-02-03 06:53 | Hematology/Onc Progress Note ---
Assessment/Plan Assessment/Plan Assessment and Recs # Leukocytosis, now with pna v other process --> Cxr: : Large left pleural effusion, Bilateral interstitial and airspace infiltrates versus edema --> wbc 16-->26->30-->10->8 --> ABX zosyn-->angelo/vanc-->angelo/tobra->off --> ID recs are noted --> smear has been reviewed # Anemia of chronic disease due to underlying chronic medical issues, multifactorial --> Anemia workup has been reviewed, cw acd --> No evidence of hemolysis is noted, peripheral smear has been reviewed. --> Hgb goal >7. Transfuse prn. --> Epogen required, to continue --> Medications have been reviewed --> low threshold for gi evaluation in case has occult + --> hgb 7.1-->7.8-->>>5.9-->7.3-->7-->7.2-->7.9-->8.6-->8.2-->8.5 --> 1 unit prbc10/17, 2 units 12/3 --> gi eval as needed # Coagulopathy with inr 1.5 --> consider vit k/ffp as needed preprocedure --> labs noted # JAVIER initially >2 --> on ivfs --> per renal # Elevated d-dimer --> venous duplex ordered-->reviewed, is neg --> in prior neg # Dysphagia s/p peg --> as per gi # Thoracic aortic dissection --> s/p repair early 2017 # Chronic Resp failure -> s/p trach/vent # Psychiatric history on ativan/haldol # [place] resident # Dvt ppx --> scds The timing of this note does not necessarily reflect the time of the patient was seen. Greatly appreciate consultation. Subjective Constitutional: Denies: no symptoms, chills, fever, malaise, weakness, other HEENT: Denies: no symptoms, eye pain, blurred vision, tearing, double vision, ear pain, ear discharge, nose pain, nose congestion, throat pain, throat swelling, mouth pain, mouth swelling, other Cardiovascular: Denies: no symptoms, chest pain, edema, irregular heart rate, lightheadedness, palpitations, syncope, other Respiratory: Denies: no symptoms, cough, shortness of breath, SOB with excertion, SOB at rest, sputum, wheezing, other Gastrointestinal/Abdominal: Denies: no symptoms, abdomen distended, abdominal pain, black stools, tarry stools, blood in stool, constipated, diarrhea, difficulty swallowing, nausea, poor appetite, poor fluid intake, rectal bleeding, vomiting, other Genitourinary: Denies: no symptoms, burning, discharge, frequency, flank pain, hematuria, incontinence, pain, urgency, other Neurologic/Psychiatric: Denies: no symptoms, anxiety, depressed, emotional problems, headache, numbness, paresthesia, pre-existing deficit, seizure, tingling, tremors, weakness, other Endocrine: Denies: no symptoms, excessive sweating, flushing, intolerance to cold, intolerance to heat, increased hunger, increased thirst, increased urine, unexplained weight gain, unexplained weight loss, other Allergies: Coded Allergies: No Known Allergies (Unverified , 10/10/17) Subjective 01/16 left femoral arden in place, on vent, icu, hgb better 01/18 labs are noted, wbc 30, hgb 7, may require prbc today 01/27 is off amio, on epoogen, hgb reviewed, 7.2, transfuse if unstable 01/28 pain meds given, some foaming around mouth, no bleeding 01/29 hd was done yesterday, no bleedig, cbc pending, asa given 01/30 labs are noted, no bleeding, labs reviewed, pending meds 02/01 labs are noted, no bleeding, meds reviewed, no f/c, trach/vent 02/02 labs noted, no night sweats, t/v, labs ordered for am Objective Objective Current Medications Medications (Trade) Dose Ordered Sig/Penny Route PRN Reason Start Time Stop Time Status Last Admin Dose Admin Acetaminophen (Tylenol) 500 mg Q6H PRN GT FEVER 01/21/20 20:45 02/20/20 20:44 01/29/20 02:01 Acetaminophen/ Hydrocodone Bitart ([place] 5/325) 1 tab Q6H PRN GT Moderate Breakthru Pain (5-7) 01/31/20 07:45 02/07/20 07:44 02/02/20 20:39 Amantadine HCl (Symmetrel) 100 mg TWICE A DAY GT 01/31/20 18:00 03/01/20 17:59 02/02/20 18:06 Amlodipine Besylate (Norvasc) 5 mg BID GT 01/22/20 18:00 02/20/20 15:44 02/02/20 18:06 Aspirin (ASA) 81 mg DAILY GT 01/20/20 09:00 03/05/20 08:59 02/02/20 09:41 Atorvastatin Calcium (Lipitor) 10 mg BEDTIME GT 01/17/20 21:00 04/16/20 20:59 02/02/20 20:40 Chlorhexidine Gluconate (Ling-Hex 2%) 1 applic DAILY@199901/17/20 20:00 04/16/20 19:59 02/02/20 20:37 Dextrose (Dextrose 50%) 25 ml Q30M PRN IV Hypoglycemia 01/15/20 22:15 04/14/20 22:14 Dextrose (Dextrose 50%) 50 ml Q30M PRN IV Hypoglycemia 01/15/20 22:15 04/14/20 22:14 01/22/20 17:54 Docusate Sodium (Colace) 200 mg BIDPRN PRN GT Constipation 01/31/20 07:45 03/01/20 07:44 01/31/20 20:34 Epoetin Gelacio (Epoetin Gelacio(ESRD on dialysis)) 10,000 unit MON-MON-MON SUBQ 01/27/20 21:00 04/26/20 20:59 01/31/20 21:19 Hydralazine HCl (Apresoline) 25 mg Q6HR GT 01/26/20 18:15 04/25/20 18:14 02/03/20 05:59 Isosorbide Dinitrate (Isordil) 20 mg TID GT 01/25/20 09:00 02/19/20 08:59 02/02/20 18:06 Lansoprazole (Prevacid) 30 mg BID GT 01/19/20 18:00 02/18/20 17:59 02/02/20 18:06 Metoclopramide HCl (Reglan) 5 mg Q6H PRN IVP Nausea & Vomiting 01/15/20 22:15 02/14/20 22:14 Metoprolol Tartrate (Lopressor) 25 mg Q12HR ORAL 01/27/20 21:00 04/22/20 20:59 02/02/20 20:38 Sodium Hypochlorite (Dakin's Quarter Strength) 1 applic DAILY TOPIC 01/30/20 09:00 02/29/20 08:59 02/02/20 09:43 Zinc Oxide (Zinc Oxide) 1 applic TIDPRN PRN TOPIC diogenes GT 01/16/20 13:15 04/15/20 13:14 01/16/20 14:55 Last 24 Hour Vital Signs Date Time Temp Pulse Resp B/P (MAP) Pulse Ox O2 Delivery O2 Flow Rate FiO2 02/03/20 05:59 135/64 02/03/20 04:00 70 02/03/20 04:00 Mechanical Ventilator Mechanical Ventilator 02/03/20 04:00 98.7 74 20 135/64 (87) 97 02/03/20 04:00 80 02/03/20 03:10 67 15 60 02/03/20 00:00 64 02/03/20 00:00 Mechanical Ventilator Mechanical Ventilator 02/03/20 00:00 98.1 62 20 125/61 (82) 97 02/03/20 00:00 125/61 02/03/20 00:00 70 02/02/20 23:15 67 22 70 02/02/20 20:38 84 143/75 02/02/20 20:00 98.2 82 20 143/75 (97) 97 02/02/20 20:00 83 02/02/20 20:00 80 02/02/20 20:00 Mechanical Ventilator Mechanical Ventilator 02/02/20 19:10 84 21 80 02/02/20 18:06 142/62 02/02/20 18:06 142/62 02/02/20 18:06 78 142/62 02/02/20 16:00 98.4 78 20 142/62 (88) 97 02/02/20 16:00 80 02/02/20 16:00 Mechanical Ventilator Mechanical Ventilator 02/02/20 15:48 83 02/02/20 14:35 77 22 80 02/02/20 12:39 143/66 02/02/20 12:39 143/66 02/02/20 12:03 69 02/02/20 12:00 Mechanical Ventilator Mechanical Ventilator 02/02/20 12:00 97.9 79 20 143/66 (91) 96 02/02/20 12:00 80 02/02/20 10:35 75 22 80 02/02/20 09:42 74 132/61 02/02/20 09:42 74 132/61 02/02/20 09:41 132/61 02/02/20 08:00 97.7 74 20 132/61 (84) 98 02/02/20 08:00 Mechanical Ventilator Mechanical Ventilator 02/02/20 08:00 80 02/02/20 07:57 79 02/02/20 07:05 77 20 80 02/02/20 05:45 117/64 02/02/20 04:00 98.2 67 20 117/64 (81) 100 02/02/20 04:00 40 02/02/20 04:00 84 02/02/20 04:00 Mechanical Ventilator Mechanical Ventilator 02/02/20 03:20 71 22 80 02/02/20 00:00 98.0 77 20 120/71 (87) 99 02/02/20 00:00 40 02/02/20 00:00 73 02/02/20 00:00 Mechanical Ventilator Mechanical Ventilator 02/02/20 00:00 120/71 02/02/20 00:00 65 02/01/20 23:15 66 17 80 02/01/20 21:26 77 129/63 02/01/20 20:00 Mechanical Ventilator Mechanical Ventilator 02/01/20 20:00 40 02/01/20 20:00 98.2 77 22 129/63 (85) 96 02/01/20 20:00 74 02/01/20 19:10 68 17 80 02/01/20 18:18 133/66 02/01/20 18:18 65 133/66 02/01/20 18:17 133/66 02/01/20 16:00 98.2 68 23 123/67 (85) 92 02/01/20 16:00 40 02/01/20 16:00 Mechanical Ventilator Mechanical Ventilator 02/01/20 15:23 67 02/01/20 15:12 69 20 40 02/01/20 12:20 112/47 02/01/20 12:00 40 02/01/20 12:00 Mechanical Ventilator Mechanical Ventilator 02/01/20 12:00 112/47 02/01/20 12:00 98.2 63 16 112/47 (68) 94 02/01/20 11:40 66 02/01/20 11:15 73 24 40 02/01/20 08:42 124/53 02/01/20 08:42 76 124/53 02/01/20 08:41 76 124/53 02/01/20 08:00 Mechanical Ventilator Mechanical Ventilator 02/01/20 08:00 40 02/01/20 08:00 98.7 74 25 124/53 (76) 96 02/01/20 07:40 70 02/01/20 07:10 72 23 40 Intake and Output 02/02/20 02/03/20 19:00 07:00 Intake Total 540 ml 490 ml Output Total 250 ml Balance 290 ml 490 ml Free Water 60 ml 90 ml Tube Feeding 480 ml 400 ml Output Urine Total 250 ml Labs Test 01/31/20 11:19 01/31/20 18:19 01/31/20 23:21 02/01/20 03:00 POC Whole Blood Glucose 91 MG/DL (74-106) 93 MG/DL (74-106) 93 MG/DL (74-106) White Blood Count 7.3 K/UL (4.8-10.8) Red Blood Count 2.96 M/UL (4.20-5.40) Hemoglobin 8.5 G/DL (12.0-16.0) Hematocrit 24.8 % (37.0-47.0) Mean Corpuscular Volume 84 FL (80-99) Mean Corpuscular Hemoglobin 28.8 PG (27.0-31.0) Mean Corpuscular Hemoglobin Concent 34.3 G/DL (32.0-36.0) Red Cell Distribution Width 14.0 % (11.6-14.8) Platelet Count 335 K/UL (150-450) Mean Platelet Volume 7.0 FL (6.5-10.1) Neutrophils (%) (Auto) 69.5 % (45.0-75.0) Lymphocytes (%) (Auto) 21.7 % (20.0-45.0) Monocytes (%) (Auto) 7.1 % (1.0-10.0) Eosinophils (%) (Auto) 0.8 % (0.0-3.0) Basophils (%) (Auto) 0.9 % (0.0-2.0) Sodium Level 137 MMOL/L (136-145) Potassium Level 3.5 MMOL/L (3.5-5.1) Chloride Level 100 MMOL/L (98-107) Carbon Dioxide Level 27 MMOL/L (21-32) Anion Gap 10 mmol/L (5-15) Blood Urea Nitrogen 84 mg/dL (7-18) Creatinine 3.5 MG/DL (0.55-1.30) Estimat Glomerular Filtration Rate 14.0 mL/min (>60) Glucose Level 67 MG/DL (74-106) Calcium Level 7.9 MG/DL (8.5-10.1) Phosphorus Level 4.6 MG/DL (2.5-4.9) Total Bilirubin 0.4 MG/DL (0.2-1.0) Aspartate Amino Transf (AST/SGOT) 26 U/L (15-37) Alanine Aminotransferase (ALT/SGPT) 12 U/L (12-78) Alkaline Phosphatase 167 U/L (46-116) Total Protein 6.8 G/DL (6.4-8.2) Albumin 1.8 G/DL (3.4-5.0) Globulin 5.0 g/dL Albumin/Globulin Ratio 0.4 (1.0-2.7) Test 02/01/20 05:14 02/01/20 05:40 02/01/20 12:31 02/01/20 17:01 POC Whole Blood Glucose 67 MG/DL (74-106) 91 MG/DL (74-106) 95 MG/DL (74-106) Test 02/02/20 00:05 02/02/20 04:01 02/02/20 05:21 02/02/20 06:09 POC Whole Blood Glucose 104 MG/DL (74-106) 77 MG/DL (74-106) 91 MG/DL (74-106) White Blood Count 6.2 K/UL (4.8-10.8) Red Blood Count 2.93 M/UL (4.20-5.40) Hemoglobin 8.2 G/DL (12.0-16.0) Hematocrit 25.1 % (37.0-47.0) Mean Corpuscular Volume 86 FL (80-99) Mean Corpuscular Hemoglobin 28.1 PG (27.0-31.0) Mean Corpuscular Hemoglobin Concent 32.9 G/DL (32.0-36.0) Red Cell Distribution Width 15.0 % (11.6-14.8) Platelet Count 405 K/UL (150-450) Mean Platelet Volume 6.6 FL (6.5-10.1) Neutrophils (%) (Auto) 66.8 % (45.0-75.0) Lymphocytes (%) (Auto) 23.0 % (20.0-45.0) Monocytes (%) (Auto) 7.4 % (1.0-10.0) Eosinophils (%) (Auto) 1.6 % (0.0-3.0) Basophils (%) (Auto) 1.2 % (0.0-2.0) Sodium Level 138 MMOL/L (136-145) Potassium Level 3.6 MMOL/L (3.5-5.1) Chloride Level 99 MMOL/L (98-107) Carbon Dioxide Level 28 MMOL/L (21-32) Anion Gap 11 mmol/L (5-15) Blood Urea Nitrogen 100 mg/dL (7-18) Creatinine 3.9 MG/DL (0.55-1.30) Estimat Glomerular Filtration Rate 12.4 mL/min (>60) Glucose Level 78 MG/DL (74-106) Calcium Level 8.5 MG/DL (8.5-10.1) Phosphorus Level 5.2 MG/DL (2.5-4.9) Magnesium Level 2.6 MG/DL (1.8-2.4) Total Bilirubin 0.4 MG/DL (0.2-1.0) Aspartate Amino Transf (AST/SGOT) 24 U/L (15-37) Alanine Aminotransferase (ALT/SGPT) 13 U/L (12-78) Alkaline Phosphatase 158 U/L (46-116) C-Reactive Protein, Quantitative 19.0 mg/dL (0.00-0.90) Total Protein 6.9 G/DL (6.4-8.2) Albumin 1.9 G/DL (3.4-5.0) Globulin 5.0 g/dL Albumin/Globulin Ratio 0.4 (1.0-2.7) Test 02/02/20 12:02/03/20 03:23 POC Whole Blood Glucose 80 MG/DL (74-106) White Blood Count 5.7 K/UL (4.8-10.8) Red Blood Count 3.00 M/UL (4.20-5.40) Hemoglobin 8.5 G/DL (12.0-16.0) Hematocrit 25.2 % (37.0-47.0) Mean Corpuscular Volume 84 FL (80-99) Mean Corpuscular Hemoglobin 28.4 PG (27.0-31.0) Mean Corpuscular Hemoglobin Concent 33.9 G/DL (32.0-36.0) Red Cell Distribution Width 14.2 % (11.6-14.8) Platelet Count 447 K/UL (150-450) Mean Platelet Volume 6.6 FL (6.5-10.1) Neutrophils (%) (Auto) 64.0 % (45.0-75.0) Lymphocytes (%) (Auto) 25.7 % (20.0-45.0) Monocytes (%) (Auto) 7.7 % (1.0-10.0) Eosinophils (%) (Auto) 1.6 % (0.0-3.0) Basophils (%) (Auto) 1.0 % (0.0-2.0) Height (Feet): 5 Height (Inches): 6.00 Weight (Pounds): 150 Objective Physical Exam: Vitals: reviewed General: NAD HEENT: nc, at Neck: supple ++trach/vent Chest: clear breath sounds bilaterally Cardiovascular: RRR, no s3, s4 Abdomen: soft, nontender, nd +gtube Extremities: no cce, normal range of motion Neuro: alert Evan Muhammad MD Feb 03, 2020 06:52
--- NOTE | 2020-02-03 07:15 | NUR ---
NURSE HAND-OFF REPORT: Important Events on Shift:MD visit Patient Status: Stable Diet: GT Pending Orders: Pending Results/Labs: Pending MD notification: Latest Vital Signs: Temperature 98.7 , Pulse 80 , B/P 135 /64 , Respiratory Rate 20 , O2 SAT 97 , Mechanical Ventilator, O2 Flow Rate . Vital Sign Comment: EKG Rhythm: Sinus Rhythm Rhythm change?: N MD Notified?: Gabriel Willams MD Response: Order Received& Read Back Latest [place] Fall Score: 70 Fall Risk: High Risk Safety Measures: Call light Within Reach, Bed Alarm Zone 1, Side Rails Side Rails x3, Bed position Low and Locked. Fall Precautions: Yellow Socks Report given to ERASMO Hough.
--- NOTE | 2020-02-03 07:15 | NUR ---
NURSE NOTES: Received patient RN Gnosticist,patient awake,drooling secretions from mouth,Gnosticist cleaned/suctioned,head elevated,observe aspiration precaution,isolation precaution,on ventilatoe,G tube feeding,raymond Catheter,I spoke to Delfina -Respiratory therapist patient needs frequent suctioning,continue care
[2020-02-03] MEDS: Amantadine 100mg cap GT SCH ×2 (09:08→17:29)
[2020-02-03] MEDS: Aspirin Baby 81mg GT SCH (09:08)
--- NOTE | 2020-02-03 09:46 | General Progress Note ---
Subjective ROS Limited/Unobtainable: No Allergies: Coded Allergies: No Known Allergies (Unverified , 10/10/17) Objective Last 24 Hour Vital Signs Date Time Temp Pulse Resp B/P (MAP) Pulse Ox O2 Delivery O2 Flow Rate FiO2 02/03/20 09:08 83 145/63 02/03/20 09:08 145/63 02/03/20 09:08 83 145/63 02/03/20 08:00 98.2 83 22 145/63 (90) 95 02/03/20 05:59 135/64 02/03/20 04:00 70 02/03/20 04:00 Mechanical Ventilator Mechanical Ventilator 02/03/20 04:00 98.7 74 20 135/64 (87) 97 02/03/20 04:00 80 02/03/20 03:10 67 15 60 02/03/20 00:00 64 02/03/20 00:00 Mechanical Ventilator Mechanical Ventilator 02/03/20 00:00 98.1 62 20 125/61 (82) 97 02/03/20 00:00 125/61 02/03/20 00:00 70 02/02/20 23:15 67 22 70 02/02/20 20:38 84 143/75 02/02/20 20:00 98.2 82 20 143/75 (97) 97 02/02/20 20:00 83 02/02/20 20:00 80 02/02/20 20:00 Mechanical Ventilator Mechanical Ventilator 02/02/20 19:10 84 21 80 02/02/20 18:06 142/62 02/02/20 18:06 142/62 02/02/20 18:06 78 142/62 02/02/20 16:00 98.4 78 20 142/62 (88) 97 02/02/20 16:00 80 02/02/20 16:00 Mechanical Ventilator Mechanical Ventilator 02/02/20 15:48 83 02/02/20 14:35 77 22 80 02/02/20 12:39 143/66 02/02/20 12:39 143/66 02/02/20 12:03 69 02/02/20 12:00 Mechanical Ventilator Mechanical Ventilator 02/02/20 12:00 97.9 79 20 143/66 (91) 96 02/02/20 12:00 80 02/02/20 10:35 75 22 80 Intake and Output 02/02/20 02/03/20 19:00 07:00 Intake Total 540 ml 560 ml Output Total 250 ml 200 ml Balance 290 ml 360 ml Free Water 60 ml 120 ml Tube Feeding 480 ml 440 ml Output Urine Total 250 ml 200 ml Laboratory Tests 02/02/20 12:19: POC Whole Blood Glucose 80 02/03/20 03:23: White Blood Count 5.7, Red Blood Count 3.00L, Hemoglobin 8.5L, Hematocrit 25.2L, Mean Corpuscular Volume 84, Mean Corpuscular Hemoglobin 28.4, Mean Corpuscular Hemoglobin Concent 33.9, Red Cell Distribution Width 14.2, Platelet Count 447, Mean Platelet Volume 6.6, Neutrophils (%) (Auto) 64.0, Lymphocytes (%) (Auto) 25.7, Monocytes (%) (Auto) 7.7, Eosinophils (%) (Auto) 1.6, Basophils (%) (Auto) 1.0, Sodium Level 136, Potassium Level 3.7, Chloride Level 97L, Carbon Dioxide Level 27, Anion Gap 12, Blood Urea Nitrogen 105H, Creatinine 4.1H, Estimat Glomerular Filtration Rate 11.6, Glucose Level 79, Calcium Level 8.9, Phosphorus Level 5.1H, Magnesium Level 2.8H, Total Bilirubin 0.4, Aspartate Amino Transf (AST/SGOT) 29, Alanine Aminotransferase (ALT/SGPT) 12, Alkaline Phosphatase 166H , Pro-B-Type Natriuretic Peptide [Pending], Total Protein 7.1, Albumin 1.9L, Globulin 5.2, Albumin/Globulin Ratio 0.4L Height (Feet): 5 Height (Inches): 6.00 Weight (Pounds): 150 General Appearance: no apparent distress EENT: normal ENT inspection Neck: supple Cardiovascular: normal rate Respiratory/Chest: decreased breath sounds Abdomen: normal bowel sounds, non tender, soft Assessment/Plan Problem List: (1) Hx of CABG ICD Codes: Z95.1 - Presence of aortocoronary bypass graft SNOMED: 348948554, 875308117 (2) History of tracheostomy ICD Codes: Z98.890 - Other specified postprocedural states SNOMED: 472350808, 892976779 (3) PEG (percutaneous endoscopic gastrostomy) status ICD Codes: Z93.1 - Gastrostomy status SNOMED: 393722910, 771749501 (4) S/P aortic dissection repair ICD Codes: Z98.890 - Other specified postprocedural states SNOMED: 549958536, 714192476 (5) Renal failure ICD Codes: N19 - Unspecified kidney failure SNOMED: 09564296, 125650614 (6) Anemia ICD Codes: D64.9 - Anemia, unspecified SNOMED: 473341042 Assessment/Plan: stable H&H repeat stool ob GTF HD per nephrology persistent elevated lipase\ ct reviewed Inder Mccauley MD Feb 03, 2020 09:46
[2020-02-03] MEDS: Dakin's 0.125% Soln (Quarter Strength) 16oz TOPIC SCH (10:27)
--- NOTE | 2020-02-03 10:30 | NUR ---
RD ASSESSMENT & RECOMMENDATIONS SEE CARE ACTIVITY FOR COMPLETE ASSESSMENT DAILY ESTIMATED NEEDS: Needs based on Critical care, wound, renal dysfunction 56 kg abw 28-33 kcals/kg 1602-8057 total kcals W/ HD (1.5-2.0) g protein/kg 84-112 g total protein Fluid per MD NUTRITION DIAGNOSIS: * Swallowing difficulty R/T dysphagia, respiratory status as evidenced by vent dep via trach, GT Dep. * Increase kcal and pro needs r/t wound healing, renal dysfunction as evidenced by admitted w/ stage 4 sacral wound, admitted w/ JAVIER, now on HD. CURRENT TF: Nepro @ 40ml/hr x 24 hrs ENTERAL NUTRITION RECOMMENDATIONS: Nepro @ 40ml/hr x 24 hrs + Prosource 1pkt QD to provide 960ml, 1728kcal, 78g+11g prot, 698ml free water * Maintain current TF @ goal as tolerated * Add Prosource 1pkt QD to better meet increased protein needs (additional 11g prot) * Water flush per MD/ HOB over 30 degrees ADDITIONAL RECOMMENDATIONS: * Per [facility] in NOV 2019: HT=63"/ Rec daily calibrated bedscale wt * Monitor for continuity of HD, next HD 02/03 * Rec phos binders- consistently elevated phos level * Wound care: add Nephrovite x 1, ZnSO4 220mg QD x 10 days Reynaldo BID via PEG (mix w/ 2-4 oz water); vit C per nephro * Monitor TF tolerance: elev lipase, slowly trending down * Add bowel regimen: no BM x 8 days, last BM on 01/25.
--- NOTE | 2020-02-03 12:21 | Pulmonology Progress Note ---
Subjective ROS Limited/Unobtainable: No Interval Events: None new Constitutional: Reports: no symptoms HEENT: Repors: no symptoms Respiratory: Reports: no symptoms Cardiovascular: Reports: no symptoms Gastrointestinal/Abdominal: Reports: no symptoms Allergies: Coded Allergies: No Known Allergies (Unverified , 10/10/17) All Systems: reviewed and negative except above Objective Last 24 Hour Vital Signs Date Time Temp Pulse Resp B/P (MAP) Pulse Ox O2 Delivery O2 Flow Rate FiO2 02/03/20 12:20 138/65 02/03/20 11:05 67 20 70 02/03/20 09:08 83 145/63 02/03/20 09:08 145/63 02/03/20 09:08 83 145/63 02/03/20 08:00 98.2 83 22 145/63 (90) 95 02/03/20 07:20 79 24 60 02/03/20 05:59 135/64 02/03/20 04:00 70 02/03/20 04:00 Mechanical Ventilator Mechanical Ventilator 02/03/20 04:00 98.7 74 20 135/64 (87) 97 02/03/20 04:00 80 02/03/20 03:10 67 15 60 02/03/20 00:00 64 02/03/20 00:00 Mechanical Ventilator Mechanical Ventilator 02/03/20 00:00 98.1 62 20 125/61 (82) 97 02/03/20 00:00 125/61 02/03/20 00:00 70 02/02/20 23:15 67 22 70 02/02/20 20:38 84 143/75 02/02/20 20:00 98.2 82 20 143/75 (97) 97 02/02/20 20:00 83 02/02/20 20:00 80 02/02/20 20:00 Mechanical Ventilator Mechanical Ventilator 02/02/20 19:10 84 21 80 02/02/20 18:06 142/62 02/02/20 18:06 142/62 02/02/20 18:06 78 142/62 02/02/20 16:00 98.4 78 20 142/62 (88) 97 02/02/20 16:00 80 02/02/20 16:00 Mechanical Ventilator Mechanical Ventilator 02/02/20 15:48 83 02/02/20 14:35 77 22 80 02/02/20 12:39 143/66 02/02/20 12:39 143/66 Intake and Output 02/02/20 02/03/20 19:00 07:00 Intake Total 540 ml 560 ml Output Total 250 ml 200 ml Balance 290 ml 360 ml Free Water 60 ml 120 ml Tube Feeding 480 ml 440 ml Output Urine Total 250 ml 200 ml General Appearance: no acute distress HEENT: normocephalic, other - trach Respiratory: chest wall non-tender, other - coarse lung sounds Cardiovascular: normal rate, regular rhythm Abdomen: soft, non tender Genitourinary: other - Norman Extremities: other - trace edema Laboratory Tests 02/03/20 03:23: White Blood Count 5.7, Red Blood Count 3.00L, Hemoglobin 8.5L, Hematocrit 25.2L, Mean Corpuscular Volume 84, Mean Corpuscular Hemoglobin 28.4, Mean Corpuscular Hemoglobin Concent 33.9, Red Cell Distribution Width 14.2, Platelet Count 447, Mean Platelet Volume 6.6, Neutrophils (%) (Auto) 64.0, Lymphocytes (%) (Auto) 25.7, Monocytes (%) (Auto) 7.7, Eosinophils (%) (Auto) 1.6, Basophils (%) (Auto) 1.0, Sodium Level 136, Potassium Level 3.7, Chloride Level 97L, Carbon Dioxide Level 27, Anion Gap 12, Blood Urea Nitrogen 105H, Creatinine 4.1H, Estimat Glomerular Filtration Rate 11.6, Glucose Level 79, Calcium Level 8.9, Phosphorus Level 5.1H, Magnesium Level 2.8H, Total Bilirubin 0.4, Aspartate Amino Transf (AST/SGOT) 29, Alanine Aminotransferase (ALT/SGPT) 12, Alkaline Phosphatase 166H , Pro-B-Type Natriuretic Peptide [Pending], Total Protein 7.1, Albumin 1.9L, Globulin 5.2, Albumin/Globulin Ratio 0.4L Current Medications Medications (Trade) Dose Ordered Sig/Penny Route PRN Reason Start Time Stop Time Status Last Admin Dose Admin Acetaminophen (Tylenol) 500 mg Q6H PRN GT FEVER 01/21/20 20:45 02/20/20 20:44 01/29/20 02:01 Acetaminophen/ Hydrocodone Bitart ([place] 5/325) 1 tab Q6H PRN GT Moderate Breakthru Pain (5-7) 01/31/20 07:45 02/07/20 07:44 02/02/20 20:39 Amantadine HCl (Symmetrel) 100 mg TWICE A DAY GT 01/31/20 18:00 03/01/20 17:59 02/03/20 09:08 Amlodipine Besylate (Norvasc) 5 mg BID GT 01/22/20 18:00 02/20/20 15:44 02/03/20 09:08 Aspirin (ASA) 81 mg DAILY GT 01/20/20 09:00 03/05/20 08:59 02/03/20 09:08 Atorvastatin Calcium (Lipitor) 10 mg BEDTIME GT 01/17/20 21:00 04/16/20 20:59 02/02/20 20:40 Chlorhexidine Gluconate (Ling-Hex 2%) 1 applic DAILY@1999 TOPIC 01/17/20 20:00 04/16/20 19:59 02/02/20 20:37 Dextrose (Dextrose 50%) 25 ml Q30M PRN IV Hypoglycemia 01/15/20 22:15 04/14/20 22:14 Dextrose (Dextrose 50%) 50 ml Q30M PRN IV Hypoglycemia 01/15/20 22:15 04/14/20 22:14 01/22/20 17:54 Docusate Sodium (Colace) 200 mg BIDPRN PRN GT Constipation 01/31/20 07:45 03/01/20 07:44 01/31/20 20:34 Epoetin Gelacio (Epoetin Gelacio(ESRD on dialysis)) 10,000 unit MON-MON-MON SUBQ 01/27/20 21:00 04/26/20 20:59 01/31/20 21:19 Hydralazine HCl (Apresoline) 25 mg Q6HR GT 01/26/20 18:15 04/25/20 18:14 02/03/20 12:20 Isosorbide Dinitrate (Isordil) 20 mg TID GT 01/25/20 09:00 02/19/20 08:59 02/03/20 09:08 Lansoprazole (Prevacid) 30 mg BID GT 01/19/20 18:00 02/18/20 17:59 02/03/20 09:08 Metoclopramide HCl (Reglan) 5 mg Q6H PRN IVP Nausea & Vomiting 01/15/20 22:15 02/14/20 22:14 Metoprolol Tartrate (Lopressor) 25 mg Q12HR ORAL 01/27/20 21:00 04/22/20 20:59 02/03/20 09:08 Sodium Hypochlorite (Dakin's Quarter Strength) 1 applic DAILY TOPIC 01/30/20 09:00 02/29/20 08:59 02/03/20 10:27 Zinc Oxide (Zinc Oxide) 1 applic TIDPRN PRN TOPIC diogenes GT 01/16/20 13:15 04/15/20 13:14 01/16/20 14:55 Assessment/Plan Assessment/Plan Assessment/Plan 1. Large left effusion. - S/p thoracentesis; CXR better - pleural fluid pathology report: negative for malignant cell 2. Chronic respiratory failure. - Continue trach care - Cont AC mode - Currently saturating at 97% 3. Sepsis; improving 4. Anemia - improving - s/p transfusion - s/p Epogen - repeat stool OB pending per Dr. Mccauley s/p HD on broad-spectrum antibiotics. Pulmonary hygiene. DVT and GI prophylaxes. Dc planning in place Elijah Hickman MD, MD Feb 03, 2020 12:21
--- NOTE | 2020-02-03 13:14 | Nephrology Progress Note ---
Assessment/Plan Problem List: (1) ARF (acute renal failure) (2) Pacemaker (3) Sepsis (4) Hyponatremia Assessment (1) JAVIER (acute kidney injury) (2) Renal failure (ARF), acute on chronic (3) Feeding by G-tube (4) Tracheostomy in place (5) Electrolyte imbalance, hyponatremia (6) Anemia, severe (7) Respiratory failure, acute and chronic (8) Elevated lipase, pancreatitis (9) Elevated troponin I (10) Sepsis Plan February 02: Labs reviewed. Will order dialysis tomorrow. Continue per consultants. February 01: Labs reviewed. Creatinine gradually rising. Will dialyze as needed. Continue to monitor renal parameters. January 31: Last dialysis January 29. Labs reviewed. No need for dialysis today. Continue per current management. Hemodialysis as needed. Will check renal parameters and chemistries tomorrow. January 30: Patient was dialyzed yesterday. No labs drawn today. Continue to monitor renal parameters and dialyze as needed. Continue per consultants and PMD. January 29: Patient due for dialysis today. Today's can panel reviewed. Cont inue to monitor renal parameters and dialysis as needed. January 28: Patient last dialyzed January 26. No labs drawn today. Will order dialysis tomorrow. Check chemistry panel tomorrow. Continue per consultants. January 27: Patient was dialyzed yesterday . Labs were reviewed. Electrolytes within normal limit. Blood pressure stable. January 26: When visited the patient earlier today the patient was on dialysis. Tolerating well. Labs reviewed. Blood pressure stable. January 25: Dialysis for tomorrow. Labs reviewed. Hemoglobin remains low. Will adjust blood pressure medication. Hydralazine added to the regimen January 24: Last dialyzed January 22. Labs reviewed. Status quo. Will dialyze as needed. Low hemoglobin noted. Transfusion per PMD decision. Epogen started. \January 23: Dialyzed yesterday. Today's labs reviewed. Continue to monitor renal parameters and arrange for dialysis as needed. Continue per PMD. January 22: Seen earlier during dialysis. Labs reviewed. Medication list reviewed. Continue current management. January 21: Labs reviewed. Medication list reviewed. Next hemodialysis tomorrow. Blood pressure medication adjusted. January 20: Dialyzed yesterday. Labs reviewed. Continue per current management. Dialysis as needed. Add Norvasc to blood pressure regimen January 19: Due for dialysis today. Labs reviewed. Continue her current manage ment. Continue to monitor renal parameters and electrolytes. January 18: Dialyzed yesterday. Labs reviewed. Renal parameters electrolytes much improved. Dialysis again tomorrow. Continue rest. January 17: Dialyzed this morning. Labs reviewed. Renal parameters and electrolyte abnormalities improved. Discussed with RN. Continue per consultants. January 16: Dialyzed yesterday. Labs improved. Next dialysis tomorrow. Continue per consultants. January 15: Patient to have dialysis catheter. Emergency dialysis for correction of uremia and electrolyte imbalances Antibiotics Transfusion Continue to monitor renal parameters Per orders Discussed with RN Subjective ROS Limited/Unobtainable: Yes Objective Objective Last 24 Hour Vital Signs Date Time Temp Pulse Resp B/P (MAP) Pulse Ox O2 Delivery O2 Flow Rate FiO2 02/03/20 12:20 138/65 02/03/20 11:05 67 20 70 02/03/20 09:08 83 145/63 02/03/20 09:08 145/63 02/03/20 09:08 83 145/63 02/03/20 08:00 98.2 83 22 145/63 (90) 95 02/03/20 07:20 79 24 60 02/03/20 05:59 135/64 02/03/20 04:00 70 02/03/20 04:00 Mechanical Ventilator Mechanical Ventilator 02/03/20 04:00 98.7 74 20 135/64 (87) 97 02/03/20 04:00 80 02/03/20 03:10 67 15 60 02/03/20 00:00 64 02/03/20 00:00 Mechanical Ventilator Mechanical Ventilator 02/03/20 00:00 98.1 62 20 125/61 (82) 97 02/03/20 00:00 125/61 02/03/20 00:00 70 02/02/20 23:15 67 22 70 02/02/20 20:38 84 143/75 02/02/20 20:00 98.2 82 20 143/75 (97) 97 02/02/20 20:00 83 02/02/20 20:00 80 02/02/20 20:00 Mechanical Ventilator Mechanical Ventilator 02/02/20 19:10 84 21 80 02/02/20 18:06 142/62 02/02/20 18:06 142/62 02/02/20 18:06 78 142/62 02/02/20 16:00 98.4 78 20 142/62 (88) 97 02/02/20 16:00 80 02/02/20 16:00 Mechanical Ventilator Mechanical Ventilator 02/02/20 15:48 83 02/02/20 14:35 77 22 80 Intake and Output 02/02/20 02/03/20 19:00 07:00 Intake Total 540 ml 560 ml Output Total 250 ml 200 ml Balance 290 ml 360 ml Free Water 60 ml 120 ml Tube Feeding 480 ml 440 ml Output Urine Total 250 ml 200 ml Current Medications Medications (Trade) Dose Ordered Sig/Penny Route PRN Reason Start Time Stop Time Status Last Admin Dose Admin Acetaminophen (Tylenol) 500 mg Q6H PRN GT FEVER 01/21/20 20:45 02/20/20 20:44 01/29/20 02:01 Acetaminophen/ Hydrocodone Bitart ([place] 5/325) 1 tab Q6H PRN GT Moderate Breakthru Pain (5-7) 01/31/20 07:45 02/07/20 07:44 02/02/20 20:39 Amantadine HCl (Symmetrel) 100 mg TWICE A DAY GT 01/31/20 18:00 03/01/20 17:59 02/03/20 09:08 Amlodipine Besylate (Norvasc) 5 mg BID GT 01/22/20 18:00 02/20/20 15:44 02/03/20 09:08 Aspirin (ASA) 81 mg DAILY GT 01/20/20 09:00 03/05/20 08:59 02/03/20 09:08 Atorvastatin Calcium (Lipitor) 10 mg BEDTIME GT 01/17/20 21:00 04/16/20 20:59 02/02/20 20:40 Chlorhexidine Gluconate (Ling-Hex 2%) 1 applic DAILY@1999 TOPIC 01/17/20 20:00 04/16/20 19:59 02/02/20 20:37 Dextrose (Dextrose 50%) 25 ml Q30M PRN IV Hypoglycemia 01/15/20 22:15 04/14/20 22:14 Dextrose (Dextrose 50%) 50 ml Q30M PRN IV Hypoglycemia 01/15/20 22:15 04/14/20 22:14 01/22/20 17:54 Docusate Sodium (Colace) 200 mg BIDPRN PRN GT Constipation 01/31/20 07:45 03/01/20 07:44 01/31/20 20:34 Epoetin Gelacio (Epoetin Gelacio(ESRD on dialysis)) 10,000 unit SUBQ 01/27/20 21:00 04/26/20 20:59 01/31/20 21:19 Hydralazine HCl (Apresoline) 25 mg Q6HR GT 01/26/20 18:15 04/25/20 18:14 02/03/20 12:20 Isosorbide Dinitrate (Isordil) 20 mg TID GT 01/25/20 09:00 02/19/20 08:59 02/03/20 09:08 Lansoprazole (Prevacid) 30 mg BID GT 01/19/20 18:00 02/18/20 17:59 02/03/20 09:08 Metoclopramide HCl (Reglan) 5 mg Q6H PRN IVP Nausea & Vomiting 01/15/20 22:15 02/14/20 22:14 Metoprolol Tartrate (Lopressor) 25 mg Q12HR ORAL 01/27/20 21:00 04/22/20 20:59 02/03/20 09:08 Sodium Hypochlorite (Dakin's Quarter Strength) 1 applic DAILY TOPIC 01/30/20 09:00 02/29/20 08:59 02/03/20 10:27 Zinc Oxide (Zinc Oxide) 1 applic TIDPRN PRN TOPIC diogenes GT 01/16/20 13:15 04/15/20 13:14 01/16/20 14:55 Laboratory Tests 02/03/20 03:23: White Blood Count 5.7, Red Blood Count 3.00L, Hemoglobin 8.5L, Hematocrit 25.2L, Mean Corpuscular Volume 84, Mean Corpuscular Hemoglobin 28.4, Mean Corpuscular Hemoglobin Concent 33.9, Red Cell Distribution Width 14.2, Platelet Count 447, Mean Platelet Volume 6.6, Neutrophils (%) (Auto) 64.0, Lymphocytes (%) (Auto) 25.7, Monocytes (%) (Auto) 7.7, Eosinophils (%) (Auto) 1.6, Basophils (%) (Auto) 1.0, Sodium Level 136, Potassium Level 3.7, Chloride Level 97L, Carbon Dioxide Level 27, Anion Gap 12, Blood Urea Nitrogen 105H, Creatinine 4.1H, Estimat Glomerular Filtration Rate 11.6, Glucose Level 79, Calcium Level 8.9, Phosphorus Level 5.1H, Magnesium Level 2.8H, Total Bilirubin 0.4, Aspartate Amino Transf (AST/SGOT) 29, Alanine Aminotransferase (ALT/SGPT) 12, Alkaline Phosphatase 166H , Pro-B-Type Natriuretic Peptide [Pending], Total Protein 7.1, Albumin 1.9L, Globulin 5.2, Albumin/Globulin Ratio 0.4L Height (Feet): 5 Height (Inches): 6.00 Weight (Pounds): 150 General Appearance: no apparent distress Cardiovascular: normal rate Respiratory/Chest: decreased breath sounds Abdomen: distended Johnny Houston MD Feb 03, 2020 13:14
[2020-02-03] MEDS: HYDROcodone/Acetamin 5/325 tab GT PRN (13:30)
[2020-02-03] MEDS: Docusate 100mg/10ml Liq GT PRN (13:31)
--- NOTE | 2020-02-03 14:23 | NUR ---
CASE MANAGEMENT:REVIEW 02/03/20 SI: SEPSIS. PNA. AC/CHR RENAL FAILURE(TEMPORARY HD CATH) TRACH/VENT DEPENDENT 98.2 83 22 145/6395% ON VENT SUPPORT W/60-70% FIO2 H/H-8.5/25.2 BUN+105 CR+4.1 IS: AMANTADINE GT BID NORVASC GT BID LOPRESSOR GT Q12 ISORDIL GT TID ASA GT QD PREVACID GT BID : STEP DOWN UNIT DCP: FROM [facility] PLAN: EGD WHEN MORE STABLE HAS TEMPORARY HD CATH. WILL NEED TUNNELED CATH FOR SN[facility]ITIS PANEL RESULTED
--- NOTE | 2020-02-03 16:04 | NUR ---
*-*DISCHARGE PLANNING*-* PATIENT HAS BEEN REFERRED TO: [facility] P: [phone] S/W GARY, WILL CALL BACK AFTER REVIEW. [facility] P: [phone] S/W GREG, CANNOT ACCEPT ANY PATIENTS, ON LOCK DOWN.
--- NOTE | 2020-02-03 16:18 | Infectious Diseases Prog Note ---
Assessment/Plan 49yo F with: AF Sepsis Leukocytosis Hypoxia on vent Pneumonia c/b L pleural effusion (recurrent, prior determined to be transudative) - s/p thora 01/21, 1050cc removed Volume overload, BNP >35,0000, likely 2/2 progressive CKD --> ESRD ?Pancreatitis, Lipase >2000 Acute anemia to 5s CONS bacteremia, ?contaminant Aflutter w/ RVR 01/13 BCx 2/2 +S. epi COVID PCR neg Flu neg CXR: Large left pleural effusion. Bilateral interstitial and airspace infiltrates versus edema MRSA nares neg 01/16 BCx NTD 01/17 BCx /2 +Staph auricularis (skin colonizer) 01/18 Resp cx +MDR CRE PsA (S-gent, I-colistin, R-polyB) 01/18 C.dif neg 01/18 CXR: Similar opacification of the left hemithorax likely representing combination of pleural effusion with atelectasis versus pneumonia/edema. Decreased but persistent hazy opacity throughout the right lung may represent edema versus infectious/inflammatory process. 01/20 BCx NTD 01/21 L thora 1050 cc removed, cx NTD 01/25 Wound cx from Gtube site +CRE Kleb pna (arnett-R) and MDR PsA (colonizers) 01/26 CT A/P: Limited exam, due to severe diffuse anasarca. Ascites. Bilateral pleural effusions. Basilar pulmonary atelectatic changes and consolidation. Gastrostomy. Atrophic left kidney with a nephroureteral stents again demonstrated. Possible retrococcygeal decubitus changes. Correlate with clinical findings, consider MRI if there is concern for sacral osteomyelitis. Right hip intertrochanteric fracture, also previously demonstrated. Left femoral dialysis catheter. Nonspecific right lobe liver lesion is unchanged, not well- demonstrated. ctasia bordering on aneurysmal dilatation and possible chronic dissection of the distal thoracic aorta, also previously described. JAVIER on CKD On previous admission Sep-Oct 2019 required HD for short period Going to start HD this admission again R/o COVID / COVID PCR neg 12/29 neg at [facility] per report H/o UTI 10/15 u/a wbc 30-40, nit neg, leuk +3; ucx ESBL P. mirablis, ESBL M. morganii //20 u/a wbc tnct, nit neg, leuk +3; ucx >100k MDR P. stuarti (S Ceftriaxone, Meropenem) 10/07 u/a wbc tnct, nit neg, leuk ; ucx >100k VRE 10/15/19 u/a wbc tnct; ucx >100k ESBL P. stuarti (S ertapenem, aztreonam) H/o transudative pleural effusion 11/28 Sp Thora (w: 169, PMN: 2%, L: 49% , LDH: 57, prot 2.5); cx Neg H/o PNA 10/15/19 Resp cx ESBL P. mirabilis, MDR P.a. (S only to Gent) 09/22 Resp cx + MDR PsA (S-gent; I-colistin; R-levofloxacin, Zosyn, angelo) 09/16/19 Sp cx ESBL P. mirablis H/o PPM site (pocket) infection and pocket abscess 2ry to S. epi-11/2018, sp >6weeks IV vancomycin 11/27 SP ABBIE: no evidence for vegetation on any of the valves 11/26/18 SP PPM removal: OR findings:The fibrous capsule enclosing the generator was then opened and there was a [id number] amount of yellowish fluid drainage. The generator was then removed.Atrial and ventricular leads were detached. The necrotic tissue of the pocket was then removed and the pocket was flushed with an antibiotic solution. Capsule, wound tissue and lead tip cx: Neg 2d echo: no vegetation seen US chest: 4.6 x 3.4 x 0.9 cm hypoechoic/anechoic area overlying left chest pacemaker power pack. This could represent either a discrete fluid collection or a focal area of very edematous tissue. Infected fluid pocket also possible. 11/18 Bcx 3/4 S. epi; 11/20 Bcx neg; 11/24 Bcx Neg; 11/27 Bcx Neg CAD s/p CABG GERD/gastritis Afib HTN Dysphagia sp GT Aortic dissection s/p repair 2017 S/p PPM Parkinson's Disease Schizophrenia Anxiety COPD Chronic resp failure s/p trach Hx of tracheal bleeding [place] resident ([facility]) VRE and MRSA colonized Plan: Cont to monitor off abx Wound not treat CRE Kleb pna nor MDR PsA from G-tube cx, likely colonizer and no signs of active infection in that area F/u Micro lab to perform sensi on MDR PsA from resp cx on Avycaz and Zerbaxa 01/31 SP angelo/inh tobra #10 for pna 01/23 SP vanco IV #10 given CONS/GPC bacteremia 01/16 SP Zosyn #2 12 SP dex 10mg in ED 12/10 SP IV Gentamycin #10 12/07 SP Meropenem #10 12/01 SP IV Vancomycin #5 11/28 Sp Cefepime #2 and IV Gentamycin x1 Monitor CBC/CMP Monitor temp curve, hemodynamics Monitor resp status D/w RN Thank you for this consult. [facility] will continue to follow. Subjective Allergies: Coded Allergies: No Known Allergies (Unverified , 10/10/17) AF NAD on vent 70% PEEP 5 WBC 5.7 Objective Last 24 Hour Vital Signs Date Time Temp Pulse Resp B/P (MAP) Pulse Ox O2 Delivery O2 Flow Rate FiO2 02/03/20 13:27 131/93 02/03/20 13:12 81 20 131/93 (106) 96 02/03/20 12:20 138/65 02/03/20 12:00 98.1 66 18 138/65 (89) 96 02/03/20 11:43 67 02/03/20 11:05 67 20 70 02/03/20 09:08 83 145/63 02/03/20 09:08 145/63 02/03/20 09:08 83 145/63 02/03/20 08:00 78 02/03/20 08:00 98.2 83 22 145/63 (90) 95 02/03/20 07:20 79 24 60 02/03/20 05:59 135/64 02/03/20 04:00 70 02/03/20 04:00 Mechanical Ventilator Mechanical Ventilator 02/03/20 04:00 98.7 74 20 135/64 (87) 97 02/03/20 04:00 80 02/03/20 03:10 67 15 60 02/03/20 00:00 64 02/03/20 00:00 Mechanical Ventilator Mechanical Ventilator 02/03/20 00:00 98.1 62 20 125/61 (82) 97 02/03/20 00:00 125/61 02/03/20 00:00 70 02/02/20 23:15 67 22 70 02/02/20 20:38 84 143/75 02/02/20 20:00 98.2 82 20 143/75 (97) 97 02/02/20 20:00 83 02/02/20 20:00 80 02/02/20 20:00 Mechanical Ventilator Mechanical Ventilator 02/02/20 19:10 84 21 80 02/02/20 18:06 142/62 02/02/20 18:06 142/62 02/02/20 18:06 78 142/62 Height (Feet): 5 Height (Inches): 6.00 Weight (Pounds): 150 Gen: NAD HEENT: NCAT, +trach CV: RRR Pulm: CTAB on vent Abd: Non-distended, +PEG with skin intact wo erythema or discharge, but brownish discharge on dressing Ext: No c/c/e Skin: No visible rashes Neuro: Awake, minimally interactive Lines: L fem HD cath Laboratory Tests Test 02/03/20 03:23 02/03/20 13:45 White Blood Count 5.7 K/UL (4.8-10.8) Red Blood Count 3.00 M/UL (4.20-5.40) L Hemoglobin 8.5 G/DL (12.0-16.0) L Hematocrit 25.2 % (37.0-47.0) L Mean Corpuscular Volume 84 FL (80-99) Mean Corpuscular Hemoglobin 28.4 PG (27.0-31.0) Mean Corpuscular Hemoglobin Concent 33.9 G/DL (32.0-36.0) Red Cell Distribution Width 14.2 % (11.6-14.8) Platelet Count 447 K/UL (150-450) Mean Platelet Volume 6.6 FL (6.5-10.1) Neutrophils (%) (Auto) 64.0 % (45.0-75.0) Lymphocytes (%) (Auto) 25.7 % (20.0-45.0) Monocytes (%) (Auto) 7.7 % (1.0-10.0) Eosinophils (%) (Auto) 1.6 % (0.0-3.0) Basophils (%) (Auto) 1.0 % (0.0-2.0) Sodium Level 136 MMOL/L (136-145) Potassium Level 3.7 MMOL/L (3.5-5.1) Chloride Level 97 MMOL/L (98-107) L Carbon Dioxide Level 27 MMOL/L (21-32) Anion Gap 12 mmol/L (5-15) Blood Urea Nitrogen 105 mg/dL (7-18) H Creatinine 4.1 MG/DL (0.55-1.30) H Estimat Glomerular Filtration Rate 11.6 mL/min (>60) Glucose Level 79 MG/DL (74-106) Calcium Level 8.9 MG/DL (8.5-10.1) Phosphorus Level 5.1 MG/DL (2.5-4.9) H Magnesium Level 2.8 MG/DL (1.8-2.4) H Total Bilirubin 0.4 MG/DL (0.2-1.0) Aspartate Amino Transf (AST/SGOT) 29 U/L (15-37) Alanine Aminotransferase (ALT/SGPT) 12 U/L (12-78) Alkaline Phosphatase 166 U/L (46-116) H Pro-B-Type Natriuretic Peptide Pending Total Protein 7.1 G/DL (6.4-8.2) Albumin 1.9 G/DL (3.4-5.0) L Globulin 5.2 g/dL Albumin/Globulin Ratio 0.4 (1.0-2.7) L POC Whole Blood Glucose 89 MG/DL (74-106) Current Medications Medications (Trade) Dose Ordered Sig/Penny Route PRN Reason Start Time Stop Time Status Last Admin Dose Admin Acetaminophen (Tylenol) 500 mg Q6H PRN GT FEVER 01/21/20 20:45 02/20/20 20:44 01/29/20 02:01 Acetaminophen/ Hydrocodone Bitart ([place] 5/325) 1 tab Q6H PRN GT Moderate Breakthru Pain (5-7) 01/31/20 07:45 02/07/20 07:44 02/03/20 13:30 Amantadine HCl (Symmetrel) 100 mg TWICE A DAY GT 01/31/20 18:00 03/01/20 17:59 02/03/20 09:08 Amlodipine Besylate (Norvasc) 5 mg BID GT 01/22/20 18:00 02/20/20 15:44 02/03/20 09:08 Aspirin (ASA) 81 mg DAILY GT 01/20/20 09:00 03/05/20 08:59 02/03/20 09:08 Atorvastatin Calcium (Lipitor) 10 mg BEDTIME GT 01/17/20 21:00 04/16/20 20:59 02/02/20 20:40 Chlorhexidine Gluconate (Ling-Hex 2%) 1 applic DAILY@2000 TOPIC 01/17/20 20:00 04/16/20 19:59 02/02/20 20:37 Dextrose (Dextrose 50%) 25 ml Q30M PRN IV Hypoglycemia 01/15/20 22:15 04/14/20 22:14 Dextrose (Dextrose 50%) 50 ml Q30M PRN IV Hypoglycemia 01/15/20 22:15 04/14/20 22:14 01/22/20 17:54 Docusate Sodium (Colace) 200 mg BIDPRN PRN GT Constipation 01/31/20 07:45 03/01/20 07:44 02/03/20 13:31 Epoetin Gelacio (Epoetin Gelacio(ESRD on dialysis)) 10,000 unit MON-MON-MON SUBQ 01/27/20 21:00 04/26/20 20:59 01/31/20 21:19 Hydralazine HCl (Apresoline) 25 mg Q6HR GT 01/26/20 18:15 04/25/20 18:14 02/03/20 12:20 Isosorbide Dinitrate (Isordil) 20 mg TID GT 01/25/20 09:00 02/19/20 08:59 02/03/20 13:27 Lansoprazole (Prevacid) 30 mg BID GT 01/19/20 18:00 02/18/20 17:59 02/03/20 09:08 Metoclopramide HCl (Reglan) 5 mg Q6H PRN IVP Nausea & Vomiting 01/15/20 22:15 02/14/20 22:14 Metoprolol Tartrate (Lopressor) 25 mg Q12HR ORAL 01/27/20 21:00 04/22/20 20:59 02/03/20 09:08 Sodium Hypochlorite (Dakin's Quarter Strength) 1 applic DAILY TOPIC 01/30/20 09:00 02/29/20 08:59 02/03/20 10:27 Zinc Oxide (Zinc Oxide) 1 applic TIDPRN PRN TOPIC diogenes GT 01/16/20 13:15 04/15/20 13:14 01/16/20 14:55 Ro Pack M.D. Feb 03, 2020 16:18
--- NOTE | 2020-02-03 16:47 | NUR ---
INSURANCE CLINICALS/REVIEW FAXED TO (01/31-02/02) [facility] T: [phone] F: [phone]
--- NOTE | 2020-02-03 16:54 | NUR ---
*-*DISCHARGE PLANNING*-* PATIENT [facility] BE[facility] P: [phone] S/W GARY, PENDING AUTH FROM INSURANCE, WILL FOLLOW UP TOMORROW 02/04/20
--- NOTE | 2020-02-03 17:23 | Surgery Progress Note ---
Surgery Progress Note Subjective Procedure Performed Left femoral temporary hemodialysis catheter insertion Additional Comments no n/v labs noted exam stable Objective Last 24 Hour Vital Signs Date Time Temp Pulse Resp B/P (MAP) Pulse Ox O2 Delivery O2 Flow Rate FiO2 02/03/20 16:00 70 02/03/20 16:00 98.2 71 16 130/53 (78) 99 02/03/20 16:00 72 02/03/20 15:05 82 24 70 02/03/20 13:27 131/93 02/03/20 13:12 81 20 131/93 (106) 96 02/03/20 12:20 138/65 02/03/20 12:00 98.1 66 18 138/65 (89) 96 02/03/20 12:00 70 02/03/20 11:43 67 02/03/20 11:05 67 20 70 02/03/20 09:08 83 145/63 02/03/20 09:08 145/63 02/03/20 09:08 83 145/63 02/03/20 08:00 70 02/03/20 08:00 78 02/03/20 08:00 98.2 83 22 145/63 (90) 95 02/03/20 07:20 79 24 60 02/03/20 05:59 135/64 02/03/20 04:00 70 02/03/20 04:00 Mechanical Ventilator Mechanical Ventilator 02/03/20 04:00 98.7 74 20 135/64 (87) 97 02/03/20 04:00 80 02/03/20 03:10 67 15 60 02/03/20 00:00 64 02/03/20 00:00 Mechanical Ventilator Mechanical Ventilator 02/03/20 00:00 98.1 62 20 125/61 (82) 97 02/03/20 00:00 125/61 02/03/20 00:00 70 02/02/20 23:15 67 22 70 02/02/20 20:38 84 143/75 02/02/20 20:00 98.2 82 20 143/75 (97) 97 02/02/20 20:00 83 02/02/20 20:00 80 02/02/20 20:00 Mechanical Ventilator Mechanical Ventilator 02/02/20 19:10 84 21 80 02/02/20 18:06 142/62 02/02/20 18:06 142/62 12/20/20 18:06 78 142/62 I&O Intake and Output 02/02/20 02/03/20 19:00 07:00 Intake Total 540 ml 560 ml Output Total 250 ml 200 ml Balance 290 ml 360 ml Free Water 60 ml 120 ml Tube Feeding 480 ml 440 ml Output Urine Total 250 ml 200 ml Dressing: saturated Cardiovascular: RSR Respiratory: decreased breath sounds Abdomen: non-tender, present bowel sounds, non-distended Extremities: no tenderness, no cyanosis Laboratory Tests Test 02/03/20 03:23 02/03/20 13:45 White Blood Count 5.7 K/UL (4.8-10.8) Red Blood Count 3.00 M/UL (4.20-5.40) L Hemoglobin 8.5 G/DL (12.0-16.0) L Hematocrit 25.2 % (37.0-47.0) L Mean Corpuscular Volume 84 FL (80-99) Mean Corpuscular Hemoglobin 28.4 PG (27.0-31.0) Mean Corpuscular Hemoglobin Concent 33.9 G/DL (32.0-36.0) Red Cell Distribution Width 14.2 % (11.6-14.8) Platelet Count 447 K/UL (150-450) Mean Platelet Volume 6.6 FL (6.5-10.1) Neutrophils (%) (Auto) 64.0 % (45.0-75.0) Lymphocytes (%) (Auto) 25.7 % (20.0-45.0) Monocytes (%) (Auto) 7.7 % (1.0-10.0) Eosinophils (%) (Auto) 1.6 % (0.0-3.0) Basophils (%) (Auto) 1.0 % (0.0-2.0) Sodium Level 136 MMOL/L (136-145) Potassium Level 3.7 MMOL/L (3.5-5.1) Chloride Level 97 MMOL/L (98-107) L Carbon Dioxide Level 27 MMOL/L (21-32) Anion Gap 12 mmol/L (5-15) Blood Urea Nitrogen 105 mg/dL (7-18) H Creatinine 4.1 MG/DL (0.55-1.30) H Estimat Glomerular Filtration Rate 11.6 mL/min (>60) Glucose Level 79 MG/DL (74-106) Calcium Level 8.9 MG/DL (8.5-10.1) Phosphorus Level 5.1 MG/DL (2.5-4.9) H Magnesium Level 2.8 MG/DL (1.8-2.4) H Total Bilirubin 0.4 MG/DL (0.2-1.0) Aspartate Amino Transf (AST/SGOT) 29 U/L (15-37) Alanine Aminotransferase (ALT/SGPT) 12 U/L (12-78) Alkaline Phosphatase 166 U/L (46-116) H Pro-B-Type Natriuretic Peptide Pending Total Protein 7.1 G/DL (6.4-8.2) Albumin 1.9 G/DL (3.4-5.0) L Globulin 5.2 g/dL Albumin/Globulin Ratio 0.4 (1.0-2.7) L POC Whole Blood Glucose 89 MG/DL (74-106) Plan Problems: (1) Dehydration (2) Acidosis (3) Depression (4) Pleural effusion (5) Respiratory failure (6) Schizophrenia (7) Hypoxia (8) UTI (urinary tract infection) (9) Pneumonia (10) NSTEMI (non-ST elevated myocardial infarction) (11) Tracheostomy in place (12) Feeding by G-tube (13) JAVIER (acute kidney injury) (14) Acute encephalopathy (15) Sacral decubitus ulcer, stage IV (16) Chronic respiratory failure (17) Ascites (18) Bacteremia (19) Hypernatremia (20) Proteinuria (21) Electrolyte imbalance (22) ACS (acute coronary syndrome) (23) Aortic dissection, thoracic (24) Respiratory failure, acute and chronic (25) JAVIER (acute kidney injury) (26) Abrasion of lip, initial encounter (27) COPD with exacerbation (28) Elevated alkaline phosphatase level (29) Renal failure (ARF), acute on chronic (30) HCAP (healthcare-associated pneumonia) (31) GT CLOGGED (32) Elevated lipase (33) Pancreatitis (34) Elevated troponin (35) Hypokalemia (36) Hyponatremia (37) Anemia (38) Renal failure (39) ARF (acute renal failure) (40) Pacemaker (41) Sepsis Assessment & Plan: leukocytosis anemia on HD renal insufficiency wounds addressed pancreatitis cont diet as tolerating trend labs lf'ts okay pt presented on admission with Tracheostomy ,GT and Multiple Pressure Injuries. Skin assessment of skin under tracheal collar without evidence of skin breakdown. Peristomal GT site excoriated.Moderate amt of dark red sanguineous exudate. Full Thickness Sacral Pressure Injury with undermined borders (L)9 cm x (W)12cm x (D)1.8cm,Undermining clockwise8-9 by 2.2cm @1o'clock,undermining clockwise 1-4 by 1.9 @ 9'oclock Scattered necrotic tissue within wound bed. Borders are loose and necrotic with marginal erythema to outer perimeter of wound. NO elevation in skin temp noted periwound. Wound is malodorous. Small amt Brown exudate noted. Resolving Pressure Injury L Ischium(L)1.5cm x (W)1.5cm. Base of wound is 80% pink epithelial with an area that is moist and pink. NO odor or exudate noted. Bilat foot-drop noted. L Heel is boggy with non-blanchable erythema(L)4cm x (W)4cm. R heel is boggy with non-Blanchable erythema(L)5cm x (W)6cm. Tx.Plan: Cleanse sacral wound with Dakin's 0.125% annie. Loosely pack with Dakin's moistened Kerlix(Attention to undermined borders). Apply Moisture Barrier Paste periwound. Cover with Optifoam drsg. Change Daily and PRN. Apply Cavilon Skin Barrier to R and L Hels. Cover each heel with Optifoam drsg. Change every 7 days and prn. Reposition at least every 2hours or as tolerated. Off-load heels with Pillow. APM/JENNIFER MAttress overlay DAILY ESTIMATED NEEDS: Needs based on Critical care, wound, renal dysfunction 56 kg abw 28-33 kcals/kg 4545-8195 total kcals W/ HD (1.5-2.0) g protein/kg 84-112 g total protein Fluid per MD NUTRITION DIAGNOSIS: * Swallowing difficulty R/T dysphagia, respiratory status as evidenced by vent dep via trach, GT Dep. * Increase kcal and pro needs r/t wound healing, renal dysfunction as evidenced by admitted w/ stage 4 sacral wound, admitted w/ JAVIER, now on HD. CURRENT TF: Nepro @ 40ml/hr x 24 hrs ENTERAL NUTRITION RECOMMENDATIONS: Nepro @ 40ml/hr x 24 hrs + Prosource 1pkt QD to provide 960ml, 1728kcal, 78g+11g prot, 698ml free water * Maintain current TF @ goal as tolerated * Add Prosource 1pkt QD to better meet increased protein needs (additional 11g prot) * Water flush per MD/ HOB over 30 degrees ADDITIONAL RECOMMENDATIONS: * Per SNF in NOV 2019: HT=63"/ Rec daily calibrated bedscale wt * Monitor for continuity of HD, next HD 02/03 * Rec phos binders- consistently elevated phos level * Wound care: add Nephrovite x 1, ZnSO4 220mg QD x 10 days Reynaldo BID via PEG (mix w/ 2-4 oz water); vit C per nephro * Monitor TF tolerance: elev lipase, slowly trending down * Add bowel regimen: no BM x 8 days, last BM on 01/25. (42) Hyponatremia Lane Saavedra Feb 03, 2020 17:23
--- NOTE | 2020-02-03 19:10 | NUR ---
NURSE NOTES: Received report from ERASMO Hough. Patient asleep in bed, afebrile and no respiratory distress noted. SR at 70bpm on 5 lead rewards consultant. Pt is arousable, opens eyes and tracks. trache to vent S6, AC 14, TV 500, FiO2 70% and PEEP 5 saturating at 97-99%. On nephro at 40ml/hr via GT infusing well, no residual and sediments noted. With Right FA 22G/ Left wrist 18 g IV lines intact, patent and asymptomatic. With left femoral arden catheter intact and asymptomatic. Dressing was changed and now clean and dry. with FC to urine bag draining hematuria. Needs were attended. Bed rails are up and wheels are locked. Continue to monitor the patient
--- NOTE | 2020-02-03 19:26 | NUR ---
NURSE HAND-OFF REPORT: Important Events on Shift:G TUBE LEAKING BROWNISH PINK Patient Status: sTABLE Diet: g TUBE FEEDING Pending Orders: n Pending Results/Labs:n Pending MD notification:n Latest Vital Signs: Temperature 98.2 , Pulse 64 , B/P 131 /63 , Respiratory Rate 16 , O2 SAT 99 , Mechanical Ventilator, O2 Flow Rate . Vital Sign Comment: EKG Rhythm: Sinus Rhythm Rhythm change?: N MD Notified?: MD Response: Latest Chavarria Fall Score: 50 Fall Risk: High Risk Safety Measures: Call light Within Reach, Bed Alarm Zone 1, Side Rails Side Rails x2, Bed position Low and Locked. Fall Precautions: Yellow Socks Report given to .ERASMO VELEZ
[2020-02-03] MEDS: Dyna-Hex 2% Top Sol 2oz TOPIC SCH (20:53)
[2020-02-03] MEDS: Epoetin Alfa-EPBX(ESRD on dialysis)10,000 unit/ml vial SUBQ SCH (20:54)
[2020-02-04] VITALS: BP 125/56
[2020-02-04] MEDS: HydrALAZINE 25mg tab GT SCH ×4 (00:50→17:16)
[2020-02-04] MEDS: HYDROcodone/Acetamin 5/325 tab GT PRN ×2 (00:57→14:06)
--- NOTE | 2020-02-04 02:00 | NUR ---
NURSE NOTES: Pt asleep in bed. PT saturating 100% on vent settings. Suction secretions prn. PT tolerated well. gown and linen were cahgned.No respiratory distress noted or any discomfort. Continue plan of care
--- NOTE | 2020-02-04 02:48 | Cardiology Progress Note ---
Subjective DATE OF SERVICE: Feb 03, 2020 Remains in atrial fibrillation; rates controlled. Occasional PVC's - non- sustained BP range stable Full vent support via trach s/p left thorocentesis 01/22/20 Low hemoglobin; on epogen Objective Last 24 Hour Vital Signs Date Time Temp Pulse Resp B/P (MAP) Pulse Ox O2 Delivery O2 Flow Rate FiO2 02/04/20 00:50 125/56 02/04/20 00:00 98.4 60 16 125/56 (79) 99 02/04/20 00:00 Mechanical Ventilator Mechanical Ventilator 02/04/20 00:00 61 02/03/20 22:44 60 14 60 02/03/20 20:54 64 131/63 02/03/20 20:00 98.2 67 16 131/63 (85) 99 02/03/20 20:00 70 02/03/20 20:00 Mechanical Ventilator Mechanical Ventilator 02/03/20 19:47 71 24 70 02/03/20 19:07 64 02/03/20 17:28 130/53 02/03/20 17:28 130/53 02/03/20 17:28 72 130/53 02/03/20 16:00 Mechanical Ventilator Mechanical Ventilator 02/03/20 16:00 70 02/03/20 16:00 98.2 71 16 130/53 (78) 99 02/03/20 16:00 72 02/03/20 15:05 82 24 70 02/03/20 13:27 131/93 02/03/20 13:12 81 20 131/93 (106) 96 02/03/20 12:20 138/65 02/03/20 12:00 Mechanical Ventilator Mechanical Ventilator 02/03/20 12:00 98.1 66 18 138/65 (89) 96 02/03/20 12:00 70 02/03/20 11:43 67 02/03/20 11:05 67 20 70 02/03/20 09:08 83 145/63 02/03/20 09:08 145/63 02/03/20 09:08 83 145/63 02/03/20 08:00 Mechanical Ventilator Mechanical Ventilator 02/03/20 08:00 70 02/03/20 08:00 78 02/03/20 08:00 98.2 83 22 145/63 (90) 95 02/03/20 07:20 79 24 60 02/03/20 05:59 135/64 02/03/20 04:00 70 02/03/20 04:00 Mechanical Ventilator Mechanical Ventilator 02/03/20 04:00 98.7 74 20 135/64 (87) 97 02/03/20 04:00 80 02/03/20 03:10 67 15 60 ROS: unchanged for 01/17/20 HEENT: Mechanically Ventilated, Thick Trach secretions RHYTHM: Afib LUNGS: bilateral rhonchi, trach site clean CARDIAC: normal S1 and S2, irregularly irregular, other - no rub ABDOMEN: normal bowel sounds, non tender, soft, G-Tube intact EXTREMITIES: normal inspection, trace edema Laboratory Tests Test 02/03/20 03:23 02/03/20 13:45 White Blood Count 5.7 K/UL (4.8-10.8) Red Blood Count 3.00 M/UL (4.20-5.40) L Hemoglobin 8.5 G/DL (12.0-16.0) L Hematocrit 25.2 % (37.0-47.0) L Mean Corpuscular Volume 84 FL (80-99) Mean Corpuscular Hemoglobin 28.4 PG (27.0-31.0) Mean Corpuscular Hemoglobin Concent 33.9 G/DL (32.0-36.0) Red Cell Distribution Width 14.2 % (11.6-14.8) Platelet Count 447 K/UL (150-450) Mean Platelet Volume 6.6 FL (6.5-10.1) Neutrophils (%) (Auto) 64.0 % (45.0-75.0) Lymphocytes (%) (Auto) 25.7 % (20.0-45.0) Monocytes (%) (Auto) 7.7 % (1.0-10.0) Eosinophils (%) (Auto) 1.6 % (0.0-3.0) Basophils (%) (Auto) 1.0 % (0.0-2.0) Sodium Level 136 MMOL/L (136-145) Potassium Level 3.7 MMOL/L (3.5-5.1) Chloride Level 97 MMOL/L (98-107) L Carbon Dioxide Level 27 MMOL/L (21-32) Anion Gap 12 mmol/L (5-15) Blood Urea Nitrogen 105 mg/dL (7-18) H Creatinine 4.1 MG/DL (0.55-1.30) H Estimat Glomerular Filtration Rate 11.6 mL/min (>60) Glucose Level 79 MG/DL (74-106) Calcium Level 8.9 MG/DL (8.5-10.1) Phosphorus Level 5.1 MG/DL (2.5-4.9) H Magnesium Level 2.8 MG/DL (1.8-2.4) H Total Bilirubin 0.4 MG/DL (0.2-1.0) Aspartate Amino Transf (AST/SGOT) 29 U/L (15-37) Alanine Aminotransferase (ALT/SGPT) 12 U/L (12-78) Alkaline Phosphatase 166 U/L (46-116) H Pro-B-Type Natriuretic Peptide Pending Total Protein 7.1 G/DL (6.4-8.2) Albumin 1.9 G/DL (3.4-5.0) L Globulin 5.2 g/dL Albumin/Globulin Ratio 0.4 (1.0-2.7) L POC Whole Blood Glucose 89 MG/DL (74-106) Assessment/Plan Assessment/Plan Chronic respiratory failure with trach Severe sepsis PAFib with rapid ventric response. Ischemic cardiomyopathy - hx CABG and s/p NSTEMI in Dec 2019. Conduction system disease of the heart Hx of permanent pacemaker explant Acute on chronic systolic and diastolic CHF Pleural effusion Anemia Hypertension/HHD with labile BP. Acute/chronic renal failure Avoid beta flori therapy based on risk of bradycardia. Anti-failure and anti-anginal regimen with titration Vent support Abx per ID Continuous cardiac monitoring Anti-HTN regimen being titrated. Transfuse for further drops in hemoglobin HD/UF planned 02/03 per renal Deni Willams MD Feb 04, 2020 02:48
[2020-02-04 04:00] VITALS: BP 132/65
[2020-02-04 05:06] LABS: HEMATOCRIT 22.2 % (37.0-47.0); HEMOGLOBIN 7.9 G/DL (12.0-16.0); MEAN CORPUSCULAR VOLUME 82 FL (80-99); PLATELET COUNT 444 K/UL (150-450); RED BLOOD COUNT 2.72 M/UL (4.20-5.40); RED CELL DISTRIBUTION WIDTH 14.9 % (11.6-14.8); WHITE BLOOD COUNT 5.9 K/UL (4.8-10.8)
--- NOTE | 2020-02-04 06:10 | NUR ---
NURSE NOTES: Pt asleep in bed, no respiratory distress noted. Pt saturating at 100%. continue to monitor the patient
--- NOTE | 2020-02-04 06:40 | Hematology/Onc Progress Note ---
Assessment/Plan Assessment/Plan Assessment and Recs # Leukocytosis, now with pna v other process --> Cxr: : Large left pleural effusion, Bilateral interstitial and airspace infiltrates versus edema --> wbc 16-->26->30-->10->8 --> ABX zosyn-->angelo/vanc-->angelo/tobra->off --> ID recs are noted --> smear has been reviewed # Anemia of chronic disease due to underlying chronic medical issues, multifactorial --> Anemia workup has been reviewed, cw acd --> No evidence of hemolysis is noted, peripheral smear has been reviewed. --> Hgb goal >7. Transfuse prn. --> Epogen required, to continue --> Medications have been reviewed --> low threshold for gi evaluation in case has occult + --> hgb 7.1-->7.8-->>>5.9-->7.3-->7-->7.2-->7.9-->8.6-->8.2-->8.5 --> 1 unit prbc10/17, 2 units 12/3 --> gi eval as needed # Coagulopathy with inr 1.5 --> consider vit k/ffp as needed preprocedure --> labs noted # JAVIER initially >2 --> on ivfs --> per renal # Elevated d-dimer --> venous duplex ordered-->reviewed, is neg --> in prior neg # Dysphagia s/p peg --> as per gi # Thoracic aortic dissection --> s/p repair early 2017 # Chronic Resp failure -> s/p trach/vent # Psychiatric history on ativan/haldol # [facility] # Dvt ppx --> scds The timing of this note does not necessarily reflect the time of the patient was seen. Greatly appreciate consultation. Subjective Constitutional: Denies: no symptoms, chills, fever, malaise, weakness, other HEENT: Denies: no symptoms, eye pain, blurred vision, tearing, double vision, ear pain, ear discharge, nose pain, nose congestion, throat pain, throat swelling, mouth pain, mouth swelling, other Cardiovascular: Denies: no symptoms, chest pain, edema, irregular heart rate, lightheadedness, palpitations, syncope, other Respiratory: Denies: no symptoms, cough, shortness of breath, SOB with excertion, SOB at rest, sputum, wheezing, other Neurologic/Psychiatric: Denies: no symptoms, anxiety, depressed, emotional problems, headache, numbness, paresthesia, pre-existing deficit, seizure, tingling, tremors, weakness, other Endocrine: Denies: no symptoms, excessive sweating, flushing, intolerance to cold, intolerance to heat, increased hunger, increased thirst, increased urine, unexplained weight gain, unexplained weight loss, other Hematologic/Lymphatic: Denies: no symptoms, anemia, easy bleeding, easy bruising, adenopathy, other Allergies: Coded Allergies: No Known Allergies (Unverified , 10/10/17) Subjective 01/16 left femoral arden in place, on vent, icu, hgb better 01/18 labs are noted, wbc 30, hgb 7, may require prbc today 01/27 is off amio, on epoogen, hgb reviewed, 7.2, transfuse if unstable 01/28 pain meds given, some foaming around mouth, no bleeding 01/29 hd was done yesterday, no bleedig, cbc pending, asa given 01/30 labs are noted, no bleeding, labs reviewed, pending meds 02/01 labs are noted, no bleeding, meds reviewed, no f/c, trach/vent 02/02 labs noted, no night sweats, t/v, labs ordered for am 02/03 labs reviewed, meds noted, no bleeding, hgb 7.9 Objective Objective Current Medications Medications (Trade) Dose Ordered Sig/Penny Route PRN Reason Start Time Stop Time Status Last Admin Dose Admin Acetaminophen (Tylenol) 500 mg Q6H PRN GT FEVER 01/21/20 20:45 02/20/20 20:44 01/29/20 02:01 Acetaminophen/ Hydrocodone Bitart ([place] 5/325) 1 tab Q6H PRN GT Moderate Breakthru Pain (5-7) 01/31/20 07:45 02/07/20 07:44 02/04/20 00:57 Amantadine HCl (Symmetrel) 100 mg TWICE A DAY GT 01/31/20 18:00 03/01/20 17:59 02/03/20 17:29 Amlodipine Besylate (Norvasc) 5 mg BID GT 01/22/20 18:00 02/20/20 15:44 02/03/20 17:28 Aspirin (ASA) 81 mg DAILY GT 01/20/20 09:00 03/05/20 08:59 02/03/20 09:08 Atorvastatin Calcium (Lipitor) 10 mg BEDTIME GT 01/17/20 21:00 04/16/20 20:59 02/03/20 20:53 Chlorhexidine Gluconate (Ling-Hex 2%) 1 applic DAILY@1999 TOPIC 01/17/20 20:00 04/16/20 19:59 02/03/20 20:53 Dextrose (Dextrose 50%) 25 ml Q30M PRN IV Hypoglycemia 01/15/20 22:15 04/14/20 22:14 Dextrose (Dextrose 50%) 50 ml Q30M PRN IV Hypoglycemia 01/15/20 22:15 04/14/20 22:14 01/22/20 17:54 Docusate Sodium (Colace) 200 mg BIDPRN PRN GT Constipation 01/31/20 07:45 03/01/20 07:44 02/03/20 13:31 Epoetin Gelacio (Epoetin Gelacio(ESRD on dialysis)) 10,000 unit MON-MON-MON SUBQ 01/27/20 21:00 04/26/20 20:59 02/03/20 20:54 Hydralazine HCl (Apresoline) 25 mg Q6HR GT 01/26/20 18:15 04/25/20 18:14 02/04/20 05:17 Isosorbide Dinitrate (Isordil) 20 mg TID GT 01/25/20 09:00 02/19/20 08:59 02/03/20 17:28 Lansoprazole (Prevacid) 30 mg BID GT 01/19/20 18:00 02/18/20 17:59 02/03/20 17:29 Metoclopramide HCl (Reglan) 5 mg Q6H PRN IVP Nausea & Vomiting 01/15/20 22:15 02/14/20 22:14 Metoprolol Tartrate (Lopressor) 25 mg Q12HR ORAL 01/27/20 21:00 04/22/20 20:59 12/21/20 20:54 Sodium Hypochlorite (Dakin's Quarter Strength) 1 applic DAILY TOPIC 01/30/20 09:00 02/29/20 08:59 02/03/20 10:27 Zinc Oxide (Zinc Oxide) 1 applic TIDPRN PRN TOPIC diogenes GT 01/16/20 13:15 04/15/20 13:14 01/16/20 14:55 Last 24 Hour Vital Signs Date Time Temp Pulse Resp B/P (MAP) Pulse Ox O2 Delivery O2 Flow Rate FiO2 02/04/20 05:17 131/64 02/04/20 04:21 62 02/04/20 04:00 98.1 62 16 132/65 (87) 99 02/04/20 04:00 Mechanical Ventilator Mechanical Ventilator 02/04/20 04:00 70 02/04/20 02:41 62 17 60 02/04/20 00:50 125/56 02/04/20 00:00 98.4 60 16 125/56 (79) 99 02/04/20 00:00 Mechanical Ventilator Mechanical Ventilator 02/04/20 00:00 61 02/03/20 22:44 60 14 60 02/03/20 20:54 64 131/63 02/03/20 20:00 98.2 67 16 131/63 (85) 99 02/03/20 20:00 70 02/03/20 20:00 Mechanical Ventilator Mechanical Ventilator 02/03/20 19:47 71 24 70 02/03/20 19:07 64 02/03/20 17:28 130/53 02/03/20 17:28 130/53 02/03/20 17:28 72 130/53 02/03/20 16:00 Mechanical Ventilator Mechanical Ventilator 02/03/20 16:00 70 02/03/20 16:00 98.2 71 16 130/53 (78) 99 02/03/20 16:00 72 02/03/20 15:05 82 24 70 02/03/20 13:27 131/93 02/03/20 13:12 81 20 131/93 (106) 96 02/03/20 12:20 138/65 02/03/20 12:00 Mechanical Ventilator Mechanical Ventilator 02/03/20 12:00 98.1 66 18 138/65 (89) 96 02/03/20 12:00 70 02/03/20 11:43 67 02/03/20 11:05 67 20 70 02/03/20 09:08 83 145/63 02/03/20 09:08 145/63 02/03/20 09:08 83 145/63 02/03/20 08:00 Mechanical Ventilator Mechanical Ventilator 02/03/20 08:00 70 02/03/20 08:00 78 02/03/20 08:00 98.2 83 22 145/63 (90) 95 02/03/20 07:20 79 24 60 02/03/20 05:59 135/64 02/03/20 04:00 70 02/03/20 04:00 Mechanical Ventilator Mechanical Ventilator 02/03/20 04:00 98.7 74 20 135/64 (87) 97 02/03/20 04:00 80 02/03/20 03:10 67 15 60 02/03/20 00:00 64 02/03/20 00:00 Mechanical Ventilator Mechanical Ventilator 02/03/20 00:00 98.1 62 20 125/61 (82) 97 02/03/20 00:00 125/61 02/03/20 00:00 70 02/02/20 23:15 67 22 70 02/02/20 20:38 84 143/75 02/02/20 20:00 98.2 82 20 143/75 (97) 97 02/02/20 20:00 83 02/02/20 20:00 80 02/02/20 20:00 Mechanical Ventilator Mechanical Ventilator 02/02/20 19:10 84 21 80 02/02/20 18:06 142/62 02/02/20 18:06 142/62 02/02/20 18:06 78 142/62 02/02/20 16:00 98.4 78 20 142/62 (88) 97 02/02/20 16:00 80 02/02/20 16:00 Mechanical Ventilator Mechanical Ventilator 02/02/20 15:48 83 02/02/20 14:35 77 22 80 02/02/20 12:39 143/66 02/02/20 12:39 143/66 02/02/20 12:03 69 02/02/20 12:00 Mechanical Ventilator Mechanical Ventilator 02/02/20 12:00 97.9 79 20 143/66 (91) 96 02/02/20 12:00 80 02/02/20 10:35 75 22 80 02/02/20 09:42 74 132/61 02/02/20 09:42 74 132/61 02/02/20 09:41 132/61 02/02/20 08:00 97.7 74 20 132/61 (84) 98 02/02/20 08:00 Mechanical Ventilator Mechanical Ventilator 02/02/20 08:00 80 02/02/20 07:57 79 02/02/20 07:05 77 20 80 Intake and Output 02/03/20 02/04/20 19:00 07:00 Intake Total 680 ml 460 ml Output Total 250 ml Balance 430 ml 460 ml Free Water 200 ml 100 ml Tube Feeding 480 ml 360 ml Output Urine Total 250 ml Labs Test 02/01/20 12:31 02/01/20 17:01 02/02/20 00:05 02/02/20 04:01 POC Whole Blood Glucose 95 MG/DL (74-106) 104 MG/DL (74-106) White Blood Count 6.2 K/UL (4.8-10.8) Red Blood Count 2.93 M/UL (4.20-5.40) Hemoglobin 8.2 G/DL (12.0-16.0) Hematocrit 25.1 % (37.0-47.0) Mean Corpuscular Volume 86 FL (80-99) Mean Corpuscular Hemoglobin 28.1 PG (27.0-31.0) Mean Corpuscular Hemoglobin Concent 32.9 G/DL (32.0-36.0) Red Cell Distribution Width 15.0 % (11.6-14.8) Platelet Count 405 K/UL (150-450) Mean Platelet Volume 6.6 FL (6.5-10.1) Neutrophils (%) (Auto) 66.8 % (45.0-75.0) Lymphocytes (%) (Auto) 23.0 % (20.0-45.0) Monocytes (%) (Auto) 7.4 % (1.0-10.0) Eosinophils (%) (Auto) 1.6 % (0.0-3.0) Basophils (%) (Auto) 1.2 % (0.0-2.0) Sodium Level 138 MMOL/L (136-145) Potassium Level 3.6 MMOL/L (3.5-5.1) Chloride Level 99 MMOL/L (98-107) Carbon Dioxide Level 28 MMOL/L (21-32) Anion Gap 11 mmol/L (5-15) Blood Urea Nitrogen 100 mg/dL (7-18) Creatinine 3.9 MG/DL (0.55-1.30) Estimat Glomerular Filtration Rate 12.4 mL/min (>60) Glucose Level 78 MG/DL (74-106) Calcium Level 8.5 MG/DL (8.5-10.1) Phosphorus Level 5.2 MG/DL (2.5-4.9) Magnesium Level 2.6 MG/DL (1.8-2.4) Total Bilirubin 0.4 MG/DL (0.2-1.0) Aspartate Amino Transf (AST/SGOT) 24 U/L (15-37) Alanine Aminotransferase (ALT/SGPT) 13 U/L (12-78) Alkaline Phosphatase 158 U/L (46-116) C-Reactive Protein, Quantitative 19.0 mg/dL (0.00-0.90) Total Protein 6.9 G/DL (6.4-8.2) Albumin 1.9 G/DL (3.4-5.0) Globulin 5.0 g/dL Albumin/Globulin Ratio 0.4 (1.0-2.7) Test 02/02/20 05:21 02/02/20 06:09 02/02/20 12:19 02/03/20 03:23 POC Whole Blood Glucose 77 MG/DL (74-106) 91 MG/DL (74-106) 80 MG/DL (74-106) White Blood Count 5.7 K/UL (4.8-10.8) Red Blood Count 3.00 M/UL (4.20-5.40) Hemoglobin 8.5 G/DL (12.0-16.0) Hematocrit 25.2 % (37.0-47.0) Mean Corpuscular Volume 84 FL (80-99) Mean Corpuscular Hemoglobin 28.4 PG (27.0-31.0) Mean Corpuscular Hemoglobin Concent 33.9 G/DL (32.0-36.0) Red Cell Distribution Width 14.2 % (11.6-14.8) Platelet Count 447 K/UL (150-450) Mean Platelet Volume 6.6 FL (6.5-10.1) Neutrophils (%) (Auto) 64.0 % (45.0-75.0) Lymphocytes (%) (Auto) 25.7 % (20.0-45.0) Monocytes (%) (Auto) 7.7 % (1.0-10.0) Eosinophils (%) (Auto) 1.6 % (0.0-3.0) Basophils (%) (Auto) 1.0 % (0.0-2.0) Sodium Level 136 MMOL/L (136-145) Potassium Level 3.7 MMOL/L (3.5-5.1) Chloride Level 97 MMOL/L (98-107) Carbon Dioxide Level 27 MMOL/L (21-32) Anion Gap 12 mmol/L (5-15) Blood Urea Nitrogen 105 mg/dL (7-18) Creatinine 4.1 MG/DL (0.55-1.30) Estimat Glomerular Filtration Rate 11.6 mL/min (>60) Glucose Level 79 MG/DL (74-106) Calcium Level 8.9 MG/DL (8.5-10.1) Phosphorus Level 5.1 MG/DL (2.5-4.9) Magnesium Level 2.8 MG/DL (1.8-2.4) Total Bilirubin 0.4 MG/DL (0.2-1.0) Aspartate Amino Transf (AST/SGOT) 29 U/L (15-37) Alanine Aminotransferase (ALT/SGPT) 12 U/L (12-78) Alkaline Phosphatase 166 U/L (46-116) Total Protein 7.1 G/DL (6.4-8.2) Albumin 1.9 G/DL (3.4-5.0) Globulin 5.2 g/dL Albumin/Globulin Ratio 0.4 (1.0-2.7) Test 02/03/20 13:45 02/04/20 03:05 POC Whole Blood Glucose 89 MG/DL (74-106) White Blood Count 5.9 K/UL (4.8-10.8) Red Blood Count 2.72 M/UL (4.20-5.40) Hemoglobin 7.9 G/DL (12.0-16.0) Hematocrit 22.2 % (37.0-47.0) Mean Corpuscular Volume 82 FL (80-99) Mean Corpuscular Hemoglobin 28.9 PG (27.0-31.0) Mean Corpuscular Hemoglobin Concent 35.4 G/DL (32.0-36.0) Red Cell Distribution Width 14.9 % (11.6-14.8) Platelet Count 444 K/UL (150-450) Mean Platelet Volume 6.2 FL (6.5-10.1) Neutrophils (%) (Auto) % (45.0-75.0) Lymphocytes (%) (Auto) % (20.0-45.0) Monocytes (%) (Auto) % (1.0-10.0) Eosinophils (%) (Auto) % (0.0-3.0) Basophils (%) (Auto) % (0.0-2.0) Height (Feet): 5 Height (Inches): 6.00 Weight (Pounds): 150 Objective Physical Exam: Vitals: reviewed General: NAD HEENT: nc, at Neck: supple ++trach/vent Chest: clear breath sounds bilaterally Cardiovascular: RRR, no s3, s4 Abdomen: soft, nontender, nd +gtube Extremities: no cce, normal range of motion Neuro: alert Evan Muhammad MD Feb 04, 2020 06:40
--- NOTE | 2020-02-04 07:10 | NUR ---
NURSE HAND-OFF REPORT: Important Events on Shift: none Patient Status: stable Diet: nephro at 40cc/hr Pending Orders: n Pending Results/Labs:n Pending MD notification:n Latest Vital Signs: Temperature 98.1 , Pulse 62 , B/P 131 /64 , Respiratory Rate 16 , O2 SAT 99 , Mechanical Ventilator, O2 Flow Rate . Vital Sign Comment: n EKG Rhythm: Sinus Rhythm Rhythm change?: N MD Notified?: Gabriel -Dr. Екатерина HATFIELD Response: Order Received& Read Back Latest Chavarria Fall Score: 50 Fall Risk: High Risk Safety Measures: Call light Within Reach, Bed Alarm Zone 1, Side Rails Side Rails x2, Bed position Low and Locked. Fall Precautions: Yellow Socks Report given to Jose C Lindsay. Pt stable in bed
--- NOTE | 2020-02-04 07:24 | NUR ---
NURSE NOTES: Received report from ERASMO SCRUGGS. Patient in bed resting, no active s/s cardiac and respiratory distress noticed at this time. Endorsed patient schedule for HD today, VIP called. Patient open eyes spontaneously, follow simple command. Patient on GT feeding Nephro @ 40ml/h, asymptomatic. Patient trach to vent Shiley 6 Ac 14 TV 500 Fio2 60%, PEEP 5. Norman Catheter draining well to gravity at this time. HD cath on left femoral patent, intact. Endorsed need of OB collection. IV on right FA 22G, left wrist 18G, asymptomatic, patent, intact. Bed in lowest position, side rails upx3, call light within reach, bed alarm on, Will continue to monitor.
[2020-02-04 08:00] VITALS: BP 135/56
[2020-02-04] MEDS: Amantadine 100mg cap GT SCH ×2 (08:09→17:15)
[2020-02-04] MEDS: Aspirin Baby 81mg GT SCH (08:09)
[2020-02-04] MEDS: Dakin's 0.125% Soln (Quarter Strength) 16oz TOPIC SCH (08:11)
--- NOTE | 2020-02-04 09:29 | NUR ---
NURSE NOTES: Called [facility] Nephrology tele : [phone] spoke with Prashanth and informed patient schedule for HD today per Dr. Houston.
--- NOTE | 2020-02-04 11:16 | NUR ---
NURSE NOTES: HD nurse at the bed side, no active s/s hemodynamic noted, will continue to monitor.
[2020-02-04] MEDS: Docusate 100mg/10ml Liq GT PRN (11:21)
--- NOTE | 2020-02-04 11:29 | NUR ---
NURSE NOTES: Dr. Mccauley at the bedside, made aware of GT site secretion, yellow/brown pasty, no new order at this time, will continue to follow up.
[2020-02-04 12:00] VITALS: BP 138/67
--- NOTE | 2020-02-04 12:22 | General Progress Note ---
Subjective ROS Limited/Unobtainable: No Allergies: Coded Allergies: No Known Allergies (Unverified , 10/10/17) Objective Last 24 Hour Vital Signs Date Time Temp Pulse Resp B/P (MAP) Pulse Ox O2 Delivery O2 Flow Rate FiO2 02/04/20 08:10 71 135/56 02/04/20 08:10 71 135/56 02/04/20 08:09 135/56 02/04/20 08:00 60 02/04/20 08:00 Mechanical Ventilator Mechanical Ventilator 02/04/20 08:00 98.2 71 16 135/56 (82) 99 02/04/20 08:00 60 02/04/20 07:20 67 26 60 02/04/20 05:17 131/64 02/04/20 04:21 62 02/04/20 04:00 98.1 62 16 132/65 (87) 99 02/04/20 04:00 Mechanical Ventilator Mechanical Ventilator 02/04/20 04:00 70 02/04/20 02:41 62 17 60 02/04/20 00:50 125/56 02/04/20 00:00 98.4 60 16 125/56 (79) 99 02/04/20 00:00 Mechanical Ventilator Mechanical Ventilator 02/04/20 00:00 61 02/03/20 22:44 60 14 60 02/03/20 20:54 64 131/63 02/03/20 20:00 98.2 67 16 131/63 (85) 99 02/03/20 20:00 70 02/03/20 20:00 Mechanical Ventilator Mechanical Ventilator 02/03/20 19:47 71 24 70 02/03/20 19:07 64 02/03/20 17:28 130/53 02/03/20 17:28 130/53 02/03/20 17:28 72 130/53 02/03/20 16:00 Mechanical Ventilator Mechanical Ventilator 02/03/20 16:00 70 02/03/20 16:00 98.2 71 16 130/53 (78) 99 02/03/20 16:00 72 02/03/20 15:05 82 24 70 02/03/20 13:27 131/93 02/03/20 13:12 81 20 131/93 (106) 96 Intake and Output 02/03/20 02/04/20 19:00 07:00 Intake Total 680 ml 580 ml Output Total 250 ml 350 ml Balance 430 ml 230 ml Free Water 200 ml 100 ml Tube Feeding 480 ml 480 ml Output Urine Total 250 ml 350 ml Laboratory Tests 02/03/20 13:45: POC Whole Blood Glucose 89 02/04/20 03:05: White Blood Count 5.9, Red Blood Count 2.72L, Hemoglobin 7.9L, Hematocrit 22.2L, Mean Corpuscular Volume 82, Mean Corpuscular Hemoglobin 28.9, Mean Corpuscular Hemoglobin Concent 35.4, Red Cell Distribution Width 14.9H, Platelet Count 444, Mean Platelet Volume 6.2L, Neutrophils (%) (Auto) , Lymphocytes (%) (Auto) , Monocytes (%) (Auto) , Eosinophils (%) (Auto) , Basophils (%) (Auto) Height (Feet): 5 Height (Inches): 6.00 Weight (Pounds): 150 General Appearance: no apparent distress EENT: normal ENT inspection Neck: supple Cardiovascular: normal rate Respiratory/Chest: decreased breath sounds Abdomen: normal bowel sounds, non tender, soft Extremities: non-tender Assessment/Plan Problem List: (1) Hx of CABG ICD Codes: Z95.1 - Presence of aortocoronary bypass graft SNOMED: 643217851, 030584100 (2) History of tracheostomy ICD Codes: Z98.890 - Other specified postprocedural states SNOMED: 485928356, 454921173 (3) PEG (percutaneous endoscopic gastrostomy) status ICD Codes: Z93.1 - Gastrostomy status SNOMED: 634179260, 182140259 (4) S/P aortic dissection repair ICD Codes: Z98.890 - Other specified postprocedural states SNOMED: 387247434, 003187124 (5) Renal failure ICD Codes: N19 - Unspecified kidney failure SNOMED: 36226458, 919771130 (6) Anemia ICD Codes: D64.9 - Anemia, unspecified SNOMED: 491320855 Assessment/Plan: stable H&H repeat stool ob GTF HD per nephrology persistent elevated lipase\ ct reviewed Inder Mccauley MD Feb 04, 2020 12:22
--- NOTE | 2020-02-04 12:26 | Surgery Progress Note ---
Surgery Progress Note Subjective Procedure Performed Left femoral temporary hemodialysis catheter insertion Additional Comments on support comfortable no n/v Objective Last 24 Hour Vital Signs Date Time Temp Pulse Resp B/P (MAP) Pulse Ox O2 Delivery O2 Flow Rate FiO2 02/04/20 08:10 71 135/56 02/04/20 08:10 71 135/56 02/04/20 08:09 135/56 02/04/20 08:00 60 02/04/20 08:00 Mechanical Ventilator Mechanical Ventilator 02/04/20 08:00 98.2 71 16 135/56 (82) 99 02/04/20 08:00 60 02/04/20 07:20 67 26 60 02/04/20 05:17 131/64 02/04/20 04:21 62 02/04/20 04:00 98.1 62 16 132/65 (87) 99 02/04/20 04:00 Mechanical Ventilator Mechanical Ventilator 02/04/20 04:00 70 02/04/20 02:41 62 17 60 02/04/20 00:50 125/56 02/04/20 00:00 98.4 60 16 125/56 (79) 99 02/04/20 00:00 Mechanical Ventilator Mechanical Ventilator 02/04/20 00:00 61 02/03/20 22:44 60 14 60 02/03/20 20:54 64 131/63 02/03/20 20:00 98.2 67 16 131/63 (85) 99 02/03/20 20:00 70 02/03/20 20:00 Mechanical Ventilator Mechanical Ventilator 02/03/20 19:47 71 24 70 02/03/20 19:07 64 02/03/20 17:28 130/53 02/03/20 17:28 130/53 02/03/20 17:28 72 130/53 02/03/20 16:00 Mechanical Ventilator Mechanical Ventilator 02/03/20 16:00 70 02/03/20 16:00 98.2 71 16 130/53 (78) 99 02/03/20 16:00 72 02/03/20 15:05 82 24 70 02/03/20 13:27 131/93 02/03/20 13:12 81 20 131/93 (106) 96 I&O Intake and Output 02/03/20 02/04/20 19:00 07:00 Intake Total 680 ml 580 ml Output Total 250 ml 350 ml Balance 430 ml 230 ml Free Water 200 ml 100 ml Tube Feeding 480 ml 480 ml Output Urine Total 250 ml 350 ml Dressing: saturated Cardiovascular: RSR Respiratory: decreased breath sounds Abdomen: soft, non-tender, present bowel sounds Extremities: no tenderness, no cyanosis Laboratory Tests Test 02/03/20 13:45 02/04/20 03:05 POC Whole Blood Glucose 89 MG/DL (74-106) White Blood Count 5.9 K/UL (4.8-10.8) Red Blood Count 2.72 M/UL (4.20-5.40) L Hemoglobin 7.9 G/DL (12.0-16.0) L Hematocrit 22.2 % (37.0-47.0) L Mean Corpuscular Volume 82 FL (80-99) Mean Corpuscular Hemoglobin 28.9 PG (27.0-31.0) Mean Corpuscular Hemoglobin Concent 35.4 G/DL (32.0-36.0) Red Cell Distribution Width 14.9 % (11.6-14.8) H Platelet Count 444 K/UL (150-450) Mean Platelet Volume 6.2 FL (6.5-10.1) L Neutrophils (%) (Auto) % (45.0-75.0) Lymphocytes (%) (Auto) % (20.0-45.0) Monocytes (%) (Auto) % (1.0-10.0) Eosinophils (%) (Auto) % (0.0-3.0) Basophils (%) (Auto) % (0.0-2.0) Plan Problems: (1) Dehydration (2) Acidosis (3) Depression (4) Pleural effusion (5) Respiratory failure (6) Schizophrenia (7) Hypoxia (8) UTI (urinary tract infection) (9) Pneumonia (10) NSTEMI (non-ST elevated myocardial infarction) (11) Tracheostomy in place (12) Feeding by G-tube (13) JAVIER (acute kidney injury) (14) Acute encephalopathy (15) Sacral decubitus ulcer, stage IV (16) Chronic respiratory failure (17) Ascites (18) Bacteremia (19) Hypernatremia (20) Proteinuria (21) Electrolyte imbalance (22) ACS (acute coronary syndrome) (23) Aortic dissection, thoracic (24) Respiratory failure, acute and chronic (25) JAVIER (acute kidney injury) (26) Abrasion of lip, initial encounter (27) COPD with exacerbation (28) Elevated alkaline phosphatase level (29) Renal failure (ARF), acute on chronic (30) HCAP (healthcare-associated pneumonia) (31) GT CLOGGED (32) Elevated lipase (33) Pancreatitis (34) Elevated troponin (35) Hypokalemia (36) Hyponatremia (37) Anemia (38) Renal failure (39) ARF (acute renal failure) (40) Pacemaker (41) Sepsis Assessment & Plan: leukocytosis anemia on HD renal insufficiency wounds addressed pancreatitis cont diet as tolerating trend labs lf'ts okay pt presented on admission with Tracheostomy ,GT and Multiple Pressure Injuries. Skin assessment of skin under tracheal collar without evidence of skin breakdown. Peristomal GT site excoriated.Moderate amt of dark red sanguineous exudate. Full Thickness Sacral Pressure Injury with undermined borders (L)9 cm x (W)12cm x (D)1.8cm,Undermining clockwise8-9 by 2.2cm @1o'clock,undermining clockwise 1-4 by 1.9 @ 9'oclock Scattered necrotic tissue within wound bed. Borders are loose and necrotic with marginal erythema to outer perimeter of wound. NO elevation in skin temp noted periwound. Wound is malodorous. Small amt Brown exudate noted. Resolving Pressure Injury L Ischium(L)1.5cm x (W)1.5cm. Base of wound is 80% pink epithelial with an area that is moist and pink. NO odor or exudate noted. Bilat foot-drop noted. L Heel is boggy with non-blanchable erythema(L)4cm x (W)4cm. R heel is boggy with non-Blanchable erythema(L)5cm x (W)6cm. Tx.Plan: Cleanse sacral wound with Dakin's 0.125% annie. Loosely pack with Dakin's moistened Kerlix(Attention to undermined borders). Apply Moisture Barrier Paste periwound. Cover with Optifoam drsg. Change Daily and PRN. Apply Cavilon Skin Barrier to R and L Hels. Cover each heel with Optifoam drsg. Change every 7 days and prn. Reposition at least every 2hours or as tolerated. Off-load heels with Pillow. APM/JENNIFER MAttress overlay DAILY ESTIMATED NEEDS: Needs based on Critical care, wound, renal dysfunction 56 kg abw 28-33 kcals/kg 5875-5056 total kcals W/ HD (1.5-2.0) g protein/kg 84-112 g total protein Fluid per MD NUTRITION DIAGNOSIS: * Swallowing difficulty R/T dysphagia, respiratory status as evidenced by vent dep via trach, GT Dep. * Increase kcal and pro needs r/t wound healing, renal dysfunction as evidenced by admitted w/ stage 4 sacral wound, admitted w/ JAVIER, now on HD. CURRENT TF: Nepro @ 40ml/hr x 24 hrs ENTERAL NUTRITION RECOMMENDATIONS: Nepro @ 40ml/hr x 24 hrs + Prosource 1pkt QD to provide 960ml, 1728kcal, 78g+11g prot, 698ml free water * Maintain current TF @ goal as tolerated * Add Prosource 1pkt QD to better meet increased protein needs (additional 11g prot) * Water flush per MD/ HOB over 30 degrees ADDITIONAL RECOMMENDATIONS: * Per SNF in NOV 2019: HT=63"/ Rec daily calibrated bedscale wt * Monitor for continuity of HD, next HD 02/03 * Rec phos binders- consistently elevated phos level * Wound care: add Nephrovite x 1, ZnSO4 220mg QD x 10 days Reynaldo BID via PEG (mix w/ 2-4 oz water); vit C per nephro * Monitor TF tolerance: elev lipase, slowly trending down * Add bowel regimen: no BM x 8 days, last BM on 01/25. (42) Hyponatremia Lane Saavedra Feb 04, 2020 12:26
--- NOTE | 2020-02-04 13:00 | NUR ---
NURSE NOTES: Patient received HD , 2L out, no active s/s hemodynamic noted.
[2020-02-04] MEDS: Lactulose 20gm/30ml UDC GT SCH ×2 (13:54→17:14)
--- NOTE | 2020-02-04 15:00 | Nephrology Progress Note ---
Assessment/Plan Problem List: (1) ARF (acute renal failure) (2) Pacemaker (3) Sepsis (4) Hyponatremia Assessment (1) JAVIER (acute kidney injury) (2) Renal failure (ARF), acute on chronic (3) Feeding by G-tube (4) Tracheostomy in place (5) Electrolyte imbalance, hyponatremia (6) Anemia, severe (7) Respiratory failure, acute and chronic (8) Elevated lipase, pancreatitis (9) Elevated troponin I (10) Sepsis Plan February 03: Labs reviewed. Due for dialysis today. Continue per consultants. February 02: Labs reviewed. Will order dialysis tomorrow. Continue per consultants. February 01: Labs reviewed. Creatinine gradually rising. Will dialyze as needed. Continue to monitor renal parameters. January 31: Last dialysis January 29. Labs reviewed. No need for dialysis today. Continue per current management. Hemodialysis as needed. Will check renal parameters and chemistries tomorrow. January 30: Patient was dialyzed yesterday. No labs drawn today. Continue to monitor renal parameters and dialyze as needed. Continue per consultants and PMD. January 29: Patient due for dialysis today. Today's can panel reviewed. Continue to monitor renal parameters and dialysis as needed. January 28: Patient last dialyzed January 26. No labs drawn today. Will order dialysis tomorrow. Check chemistry panel tomorrow. Continue per consultants. January 27: Patient was dialyzed yesterday . Labs were reviewed. Electrolytes within normal limit. Blood pressure stable. January 26: When visited the patient earlier today the patient was on dialysis. Tolerating well. Labs reviewed. Blood pressure stable. January 25: Dialysis for tomorrow. Labs reviewed. Hemoglobin remains low. Will adjust blood pressure medication. Hydralazine added to the regimen January 24: Last dialyzed January 22. Labs reviewed. Status quo. Will dialyze as needed. Low hemoglobin noted. Transfusion per PMD decision. Epogen started. \January 23: Dialyzed yesterday. Today's labs reviewed. Continue to monitor renal parameters and arrange for dialysis as needed. Continue per PMD. January 22: Seen earlier during dialysis. Labs reviewed. Medication list reviewed. Continue current management. January 21: Labs reviewed. Medication list reviewed. Next hemodialysis tomorrow. Blood pressure medication adjusted. January 20: Dialyzed yesterday. Labs reviewed. Continue per current management. Dialysis as needed. Add Norvasc to blood pressure regimen January 19: Due for dialysis today. Labs reviewed. Continue her current management. Continue to monitor renal parameters and electrolytes. January 18: Dialyzed yesterday. Labs reviewed. Renal parameters electrolytes much improved. Dialysis again tomorrow. Continue rest. January 17: Dialyzed this morning. Labs reviewed. Renal parameters and electrolyte abnormalities improved. Discussed with RN. Continue per consultants. January 16: Dialyzed yesterday. Labs improved. Next dialysis tomorrow. Cont inue per consultants. January 15: Patient to have dialysis catheter. Emergency dialysis for correction of uremia and electrolyte imbalances Antibiotics Transfusion Continue to monitor renal parameters Per orders Discussed with RN Subjective ROS Limited/Unobtainable: Yes Objective Objective Last 24 Hour Vital Signs Date Time Temp Pulse Resp B/P (MAP) Pulse Ox O2 Delivery O2 Flow Rate FiO2 02/04/20 12:32 138/67 02/04/20 12:00 Mechanical Ventilator Mechanical Ventilator 02/04/20 12:00 98.1 68 18 138/67 (90) 99 02/04/20 12:00 62 02/04/20 12:00 60 02/04/20 08:10 71 135/56 02/04/20 08:10 71 135/56 02/04/20 08:09 135/56 02/04/20 08:00 60 02/04/20 08:00 Mechanical Ventilator Mechanical Ventilator 02/04/20 08:00 98.2 71 16 135/56 (82) 99 02/04/20 08:00 60 02/04/20 07:20 67 26 60 02/04/20 05:17 131/64 02/04/20 04:21 62 02/04/20 04:00 98.1 62 16 132/65 (87) 99 02/04/20 04:00 Mechanical Ventilator Mechanical Ventilator 02/04/20 04:00 70 02/04/20 02:41 62 17 60 02/04/20 00:50 125/56 02/04/20 00:00 98.4 60 16 125/56 (79) 99 02/04/20 00:00 Mechanical Ventilator Mechanical Ventilator 02/04/20 00:00 61 02/03/20 22:44 60 14 60 02/03/20 20:54 64 131/63 02/03/20 20:00 98.2 67 16 131/63 (85) 99 02/03/20 20:00 70 02/03/20 20:00 Mechanical Ventilator Mechanical Ventilator 02/03/20 19:47 71 24 70 02/03/20 19:07 64 02/03/20 17:28 130/53 02/03/20 17:28 130/53 02/03/20 17:28 72 130/53 02/03/20 16:00 Mechanical Ventilator Mechanical Ventilator 02/03/20 16:00 70 02/03/20 16:00 98.2 71 16 130/53 (78) 99 02/03/20 16:00 72 02/03/20 15:05 82 24 70 Intake and Output 02/03/20 02/04/20 18:59 06:59 Intake Total 680 ml 580 ml Output Total 250 ml 350 ml Balance 430 ml 230 ml Free Water 200 ml 100 ml Tube Feeding 480 ml 480 ml Output Urine Total 250 ml 350 ml Laboratory Tests 02/04/20 03:05: White Blood Count 5.9, Red Blood Count 2.72L, Hemoglobin 7.9L, Hematocrit 22.2L, Mean Corpuscular Volume 82, Mean Corpuscular Hemoglobin 28.9, Mean Corpuscular Hemoglobin Concent 35.4, Red Cell Distribution Width 14.9H, Platelet Count 444, Mean Platelet Volume 6.2L, Neutrophils (%) (Auto) , Lymphocytes (%) (Auto) , Monocytes (%) (Auto) , Eosinophils (%) (Auto) , Basophils (%) (Auto) Height (Feet): 5 Height (Inches): 6.00 Weight (Pounds): 150 General Appearance: no apparent distress EENT: other - Trach to vent Cardiovascular: normal rate Respiratory/Chest: decreased breath sounds Abdomen: distended Johnny Houston MD Feb 04, 2020 15:00
--- NOTE | 2020-02-04 15:22 | Pulmonology Progress Note ---
Subjective ROS Limited/Unobtainable: Yes Interval Events: None new Constitutional: Reports: no symptoms HEENT: Repors: no symptoms Respiratory: Reports: no symptoms Cardiovascular: Reports: no symptoms Gastrointestinal/Abdominal: Reports: no symptoms Allergies: Coded Allergies: No Known Allergies (Unverified , 10/10/17) All Systems: reviewed and negative except above Objective Last 24 Hour Vital Signs Date Time Temp Pulse Resp B/P (MAP) Pulse Ox O2 Delivery O2 Flow Rate FiO2 02/04/20 14:36 98.1 02/04/20 12:32 138/67 02/04/20 12:00 Mechanical Ventilator Mechanical Ventilator 02/04/20 12:00 98.1 68 18 138/67 (90) 99 02/04/20 12:00 62 02/04/20 12:00 60 02/04/20 08:10 71 135/56 02/04/20 08:10 71 135/56 02/04/20 08:09 135/56 02/04/20 08:00 60 02/04/20 08:00 Mechanical Ventilator Mechanical Ventilator 02/04/20 08:00 98.2 71 16 135/56 (82) 99 02/04/20 08:00 60 02/04/20 07:20 67 26 60 02/04/20 05:17 131/64 02/04/20 04:21 62 02/04/20 04:00 98.1 62 16 132/65 (87) 99 02/04/20 04:00 Mechanical Ventilator Mechanical Ventilator 02/04/20 04:00 70 02/04/20 02:41 62 17 60 02/04/20 00:50 125/56 02/04/20 00:00 98.4 60 16 125/56 (79) 99 02/04/20 00:00 Mechanical Ventilator Mechanical Ventilator 02/04/20 00:00 61 02/03/20 22:44 60 14 60 02/03/20 20:54 64 131/63 02/03/20 20:00 98.2 67 16 131/63 (85) 99 02/03/20 20:00 70 02/03/20 20:00 Mechanical Ventilator Mechanical Ventilator 02/03/20 19:47 71 24 70 02/03/20 19:07 64 02/03/20 17:28 130/53 02/03/20 17:28 130/53 02/03/20 17:28 72 130/53 02/03/20 16:00 Mechanical Ventilator Mechanical Ventilator 02/03/20 16:00 70 02/03/20 16:00 98.2 71 16 130/53 (78) 99 02/03/20 16:00 72 Intake and Output 02/03/20 02/04/20 19:00 07:00 Intake Total 680 ml 580 ml Output Total 250 ml 350 ml Balance 430 ml 230 ml Free Water 200 ml 100 ml Tube Feeding 480 ml 480 ml Output Urine Total 250 ml 350 ml General Appearance: no acute distress HEENT: normocephalic, other - trach Respiratory: chest wall non-tender, other - coarse lung sounds Cardiovascular: normal rate, regular rhythm Abdomen: soft, non tender Genitourinary: other - [place] Extremities: other - trace edema Laboratory Tests 02/04/20 03:05: White Blood Count 5.9, Red Blood Count 2.72L, Hemoglobin 7.9L, Hematocrit 22.2L, Mean Corpuscular Volume 82, Mean Corpuscular Hemoglobin 28.9, Mean Corpuscular Hemoglobin Concent 35.4, Red Cell Distribution Width 14.9H, Platelet Count 444, Mean Platelet Volume 6.2L, Neutrophils (%) (Auto) , Lymphocytes (%) (Auto) , Monocytes (%) (Auto) , Eosinophils (%) (Auto) , Basophils (%) (Auto) Current Medications Medications (Trade) Dose Ordered Sig/Penny Route PRN Reason Start Time Stop Time Status Last Admin Dose Admin Acetaminophen (Tylenol) 500 mg Q6H PRN GT FEVER 01/21/20 20:45 02/20/20 20:44 01/29/20 02:01 Acetaminophen/ Hydrocodone Bitart ([place] 5/325) 1 tab Q6H PRN GT Moderate Breakthru Pain (5-7) 01/31/20 07:45 02/07/20 07:44 02/04/20 14:06 Amantadine HCl (Symmetrel) 100 mg TWICE A DAY GT 01/31/20 18:00 03/01/20 17:59 02/04/20 08:09 Amlodipine Besylate (Norvasc) 5 mg BID GT 01/22/20 18:00 02/20/20 15:44 02/03/20 17:28 Aspirin (ASA) 81 mg DAILY GT 01/20/20 09:00 03/05/20 08:59 02/04/20 08:09 Atorvastatin Calcium (Lipitor) 10 mg BEDTIME GT 01/17/20 21:00 04/16/20 20:59 02/03/20 20:53 Chlorhexidine Gluconate (Ling-Hex 2%) 1 applic DAILY@2000 TOPIC 01/17/20 20:00 04/16/20 19:59 02/03/20 20:53 Dextrose (Dextrose 50%) 25 ml Q30M PRN IV Hypoglycemia 01/15/20 22:15 04/14/20 22:14 Dextrose (Dextrose 50%) 50 ml Q30M PRN IV Hypoglycemia 01/15/20 22:15 04/14/20 22:14 01/22/20 17:54 Docusate Sodium (Colace) 200 mg BIDPRN PRN GT Constipation 01/31/20 07:45 03/01/20 07:44 02/04/20 11:21 Epoetin Gelacio (Epoetin Gelacio(ESRD on dialysis)) 10,000 unit MON-MON-MON SUBQ 01/27/20 21:00 04/26/20 20:59 02/03/20 20:54 Hydralazine HCl (Apresoline) 25 mg Q6HR GT 01/26/20 18:15 04/25/20 18:14 02/04/20 05:17 Isosorbide Dinitrate (Isordil) 20 mg TID GT 01/25/20 09:00 02/19/20 08:59 02/03/20 17:28 Lactulose (Cephulac) 20 gm THREE TIMES A DAY GT 02/04/20 13:00 03/05/20 12:59 02/04/20 13:54 Lansoprazole (Prevacid) 30 mg BID GT 01/19/20 18:00 02/18/20 17:59 02/04/20 08:09 Metoclopramide HCl (Reglan) 5 mg Q6H PRN IVP Nausea & Vomiting 01/15/20 22:15 02/14/20 22:14 Metoprolol Tartrate (Lopressor) 25 mg Q12HR ORAL 01/27/20 21:00 04/22/20 20:59 02/03/20 20:54 Polyethylene Glycol (Miralax) 17 gm BEDTIME GT 02/04/20 21:00 03/05/20 20:59 Sodium Hypochlorite (Dakin's Quarter Strength) 1 applic DAILY TOPIC 01/30/20 09:00 02/29/20 08:59 02/04/20 08:11 Zinc Oxide (Zinc Oxide) 1 applic TIDPRN PRN TOPIC diogenes GT 01/16/20 13:15 04/15/20 13:14 01/16/20 14:55 Assessment/Plan Assessment/Plan Assessment/Plan 1. Large left effusion. - S/p thoracentesis; CXR better - pleural fluid pathology report: negative for malignant cell 2. Chronic respiratory failure. - Continue trach care - Cont AC mode - Currently saturating at 97% 3. Sepsis; improving 4. Anemia - improving - s/p transfusion - s/p Epogen - repeat stool OB pending per Dr. Mccauley s/p HD on broad-spectrum antibiotics. Pulmonary hygiene. DVT and GI prophylaxes. Dc planning in place FiO2 increased overnight to 60%; now decreased to 50%; will wean further Elijah Hickman MD, MD Feb 04, 2020 15:21
[2020-02-04 16:00] VITALS: BP 142/69
--- NOTE | 2020-02-04 16:24 | NUR ---
CASE MANAGEMENT:REVIEW 02/04/20 SI: SEPSIS. PNA. AC/CHR RENAL FAILURE(TEMPORARY HD CATH) TRACH/VENT DEPENDENT 98.1 68 18 138/67 99% ON VENT SUPPORT W/60% FIO2 H/H-8.5/25.2 BUN+105 CR+4.1 IS: AMANTADINE GT BID LACTULOSE GT TID NORVASC GT BID LOPRESSOR GT Q12 ISORDIL GT TID ASA GT QD PREVACID GT BID : STEP DOWN UNIT DCP: FROM [facility] PLAN: EGD WHEN MORE STABLE HAS TEMPORARY HD CATH UNABLE TO GET A [facility] MEDICAL REIMBURSEMENT MANAGER TO RESPOND TO OUR CALLS
[2020-02-04] MEDS ORDERED: Tubing IV Secondary IV ONE (16:36)
[2020-02-04] MEDS ORDERED: Sterile Water Irrig 1000ml IRRIG ONE (16:36)
[2020-02-04] MEDS ORDERED: D5W 275ml ONE (16:36)
[2020-02-04] MEDS ORDERED: NS 275ml ONE (16:36)
--- NOTE | 2020-02-04 16:37 | NUR ---
INSURANCE CLINICALS AND REVIEW FAXED
--- NOTE | 2020-02-04 16:38 | NUR ---
CASE MANAGEMENT:REVIEW 02/04/20 SI: SEPSIS. PNA. AC/CHR RENAL FAILURE(TEMPORARY HD CATH) TRACH/VENT DEPENDENT 98.1 68 18 138/67 99% ON VENT SUPPORT W/60% FIO2 H/H-7.9/22.2 BUN+105 CR+4.1 IS: AMANTADINE GT BID LACTULOSE GT TID NORVASC GT BID LOPRESSOR GT Q12 ISORDIL GT TID ASA GT QD PREVACID GT BID : STEP DOWN UNIT DCP: FROM [facility] PLAN: EGD WHEN MORE STABLE HAS TEMPORARY HD CATH UNABLE TO GET A [facility] MEETING PLANNER TO RESPOND TO OUR CALLS
--- NOTE | 2020-02-04 19:27 | NUR ---
NURSE HAND-OFF REPORT: Important Events on Shift: HD 2L out Patient Status: stable Diet: GT Nephro @ 40ml/h Pending Orders: NA Pending Results/Labs:NA Pending notification:NA Latest Vital Signs: Temperature 97.9 , Pulse 68 , B/P 142 /69 , Respiratory Rate 16 , O2 SAT 100 , Mechanical Ventilator, O2 Flow Rate . Vital Sign Comment: stable EKG Rhythm: Sinus Rhythm Rhythm change?: N MD Notified?: Gabriel Willams MD Response: Order Received& Read Back Latest [place] Fall Score: 50 Fall Risk: High Risk Safety Measures: Call light Within Reach, Bed Alarm Zone 1, Side Rails Side Rails x2, Bed position Low and Locked. Fall Precautions: Yellow Socks Report given to Zena Harmon RN.
--- NOTE | 2020-02-04 19:28 | NUR ---
NURSE NOTES: received pt from Neftali ZIMMERMAN., pt is is awake and AO x0-1 at this time. vehicle monitor technician shows SR at this time. pt is on Vent S6 AC 14 TV 500 Fio2 40% P5. Gtube site intact, clean, but noted little leakage which Dr. Mccauley aware. raymond cath intact, clean, and patent, draining well with gravity, no bleeding noted. skin alternation noted, dressing sites are intact, clean, and patent. left FA 22G and Left wrist 18G IV sites are intact, clean, and patent. bed at the lowest position, alarmed, and locked. call light within reach. will continue to monitor pt with plan of care.
[2020-02-04 20:00] VITALS: BP 145/67
[2020-02-04] MEDS: Dyna-Hex 2% Top Sol 2oz TOPIC SCH (20:24)
[2020-02-04] MEDS: Miralax 17gm pkt GT SCH (20:24)
[2020-02-05] VITALS: BP 144/63
--- NOTE | 2020-02-05 | NUR ---
NURSE NOTES: oral care given, oral suction provided. no BM at this time. O2sat 100%. no SOB noted. repositioned Q 2hrs. call light within reach.
[2020-02-05] MEDS: HydrALAZINE 25mg tab GT SCH ×4 (00:57→17:58)
--- NOTE | 2020-02-05 01:00 | NUR ---
NURSE NOTES: BS noted 66 and 98 after juice given. will continue to monitor pt.
--- NOTE | 2020-02-05 01:45 | Cardiology Progress Note ---
Subjective DATE OF SERVICE: Feb 04, 2020 Remains in atrial fibrillation; rates controlled. Occasional PVC's - non- sustained BP range stable Full vent support via trach s/p left thorocentesis 01/22/20 Low hemoglobin; on epogen S/P HD/UF today Objective Last 24 Hour Vital Signs Date Time Temp Pulse Resp B/P (MAP) Pulse Ox O2 Delivery O2 Flow Rate FiO2 02/05/20 00:57 144/70 02/05/20 00:00 Mechanical Ventilator Mechanical Ventilator 02/05/20 00:00 98.2 74 20 144/63 (90) 95 02/05/20 00:00 40 02/04/20 22:54 Mechanical Ventilator 100 02/04/20 22:37 68 14 40 02/04/20 20:25 74 145/67 02/04/20 20:00 97.9 74 17 145/67 (93) 100 02/04/20 20:00 Mechanical Ventilator Mechanical Ventilator 02/04/20 20:00 40 02/04/20 19:50 71 02/04/20 19:16 70 21 40 02/04/20 17:16 142/69 02/04/20 17:16 68 142/69 02/04/20 17:15 142/69 02/04/20 16:00 40 02/04/20 16:00 Mechanical Ventilator Mechanical Ventilator 02/04/20 16:00 65 02/04/20 16:00 97.9 68 16 142/69 (93) 100 02/04/20 15:35 72 18 40 02/04/20 14:36 98.1 02/04/20 12:32 138/67 02/04/20 12:00 Mechanical Ventilator Mechanical Ventilator 02/04/20 12:00 98.1 68 18 138/67 (90) 99 02/04/20 12:00 62 02/04/20 12:00 60 02/04/20 11:05 70 26 60 02/04/20 08:10 71 135/56 02/04/20 08:10 71 135/56 02/04/20 08:09 135/56 02/04/20 08:00 60 02/04/20 08:00 Mechanical Ventilator Mechanical Ventilator 02/04/20 08:00 98.2 71 16 135/56 (82) 99 02/04/20 08:00 60 02/04/20 07:20 67 26 60 02/04/20 05:17 131/64 02/04/20 04:21 62 02/04/20 04:00 98.1 62 16 132/65 (87) 99 02/04/20 04:00 Mechanical Ventilator Mechanical Ventilator 02/04/20 04:00 70 02/04/20 02:41 62 17 60 ROS: unchanged for 01/17/20 HEENT: Mechanically Ventilated, Thick Trach secretions RHYTHM: Afib LUNGS: bilateral rhonchi, trach site clean CARDIAC: normal S1 and S2, irregularly irregular, other - no rub ABDOMEN: normal bowel sounds, non tender, soft, G-Tube intact EXTREMITIES: normal inspection, trace edema Laboratory Tests Test 02/04/20 03:05 White Blood Count 5.9 K/UL (4.8-10.8) Red Blood Count 2.72 M/UL (4.20-5.40) L Hemoglobin 7.9 G/DL (12.0-16.0) L Hematocrit 22.2 % (37.0-47.0) L Mean Corpuscular Volume 82 FL (80-99) Mean Corpuscular Hemoglobin 28.9 PG (27.0-31.0) Mean Corpuscular Hemoglobin Concent 35.4 G/DL (32.0-36.0) Red Cell Distribution Width 14.9 % (11.6-14.8) H Platelet Count 444 K/UL (150-450) Mean Platelet Volume 6.2 FL (6.5-10.1) L Neutrophils (%) (Auto) % (45.0-75.0) Lymphocytes (%) (Auto) % (20.0-45.0) Monocytes (%) (Auto) % (1.0-10.0) Eosinophils (%) (Auto) % (0.0-3.0) Basophils (%) (Auto) % (0.0-2.0) Assessment/Plan Assessment/Plan Chronic respiratory failure with trach Severe sepsis PAFib with rapid ventric response. Ischemic cardiomyopathy - hx CABG and s/p NSTEMI in Dec 2019. Conduction system disease of the heart Hx of permanent pacemaker explant Acute on chronic systolic and diastolic CHF Pleural effusion Anemia Hypertension/HHD with labile BP. Acute/chronic renal failure Avoid beta flori therapy based on risk of bradycardia. Anti-failure and anti-anginal regimen with titration Vent support Abx per ID Continuous cardiac monitoring Anti-HTN regimen being titrated. Transfuse for further drops in hemoglobin Deni Willams MD Feb 05, 2020 01:45
--- NOTE | 2020-02-05 03:16 | NUR ---
NURSE NOTES: cleaned pt, oral care given, repositioned Q 2hrs. no active bleeding noted. O2sat is at 100% without SOB. call light within reach. will continue to monitor pt.
[2020-02-05 04:00] VITALS: BP 135/78
[2020-02-05 05:02] LABS: BASOPHILS % (AUTO) 0.9 % (0.0-2.0); HEMATOCRIT 23.1 % (37.0-47.0); LYMPHOCYTES % (AUTO) 23.5 % (20.0-45.0); MEAN CORPUSCULAR VOLUME 82 FL (80-99); MONOCYTES % (AUTO) 7.2 % (1.0-10.0); NEUTROPHILS % (AUTO) 68.4 % (45.0-75.0); PLATELET COUNT 474 K/UL (150-450); RED BLOOD COUNT 2.82 M/UL (4.20-5.40); WHITE BLOOD COUNT 5.5 K/UL (4.8-10.8)
[2020-02-05 05:21] LABS: CALCIUM 8.5 MG/DL (8.5-10.1); CREATININE 3.2 MG/DL (0.55-1.30); POTASSIUM 3.5 MMOL/L (3.5-5.1)
--- NOTE | 2020-02-05 06:38 | Hematology/Onc Progress Note ---
Assessment/Plan Assessment/Plan IM note Covering for Dr. Dong Assessment and Recs # Leukocytosis, now with pna v other process --> Cxr: : Large left pleural effusion, Bilateral interstitial and airspace infiltrates versus edema --> wbc 16-->26->30-->10->8 --> ABX zosyn-->angelo/vanc-->angelo/tobra->off --> ID recs are noted --> smear has been reviewed # Anemia of chronic disease due to underlying chronic medical issues, multifactorial --> Anemia workup has been reviewed, cw acd --> No evidence of hemolysis is noted, peripheral smear has been reviewed. --> Hgb goal >7. Transfuse prn. --> Epogen required, to continue --> Medications have been reviewed --> low threshold for gi evaluation in case has occult + --> hgb 7.1-->7.8-->>>5.9-->7.3-->7-->7.2-->7.9-->8.6-->8.2-->8.5 --> 1 unit prbc10/17, 2 units 12/3 --> gi eval as needed # Coagulopathy with inr 1.5 --> consider vit k/ffp as needed preprocedure --> labs noted # JAVIER initially >2 --> on ivfs --> per renal # Elevated d-dimer --> venous duplex ordered-->reviewed, is neg --> in prior neg # Dysphagia s/p peg --> as per gi # Thoracic aortic dissection --> s/p repair early 2017 # Chronic Resp failure -> s/p trach/vent # Psychiatric history on ativan/haldol # [place] resident # Dvt ppx --> scds The timing of this note does not necessarily reflect the time of the patient was seen. Greatly appreciate consultation. Subjective Constitutional: Denies: no symptoms, chills, fever, malaise, weakness, other HEENT: Denies: no symptoms, eye pain, blurred vision, tearing, double vision, ear pain, ear discharge, nose pain, nose congestion, throat pain, throat swelling, mouth pain, mouth swelling, other Cardiovascular: Denies: no symptoms, chest pain, edema, irregular heart rate, lightheadedness, palpitations, syncope, other Respiratory: Denies: no symptoms, cough, shortness of breath, SOB with excertion, SOB at rest, sputum, wheezing, other Gastrointestinal/Abdominal: Denies: no symptoms, abdomen distended, abdominal pain, black stools, tarry stools, blood in stool, constipated, diarrhea, difficulty swallowing, nausea, poor appetite, poor fluid intake, rectal bleeding, vomiting, other Neurologic/Psychiatric: Denies: no symptoms, anxiety, depressed, emotional problems, headache, numbness, paresthesia, pre-existing deficit, seizure, tingling, tremors, weakness, other Hematologic/Lymphatic: Denies: no symptoms, anemia, easy bleeding, easy bruising, adenopathy, other Allergies: Coded Allergies: No Known Allergies (Unverified , 10/10/17) Subjective 01/16 left femoral arden in place, on vent, icu, hgb better 01/18 labs are noted, wbc 30, hgb 7, may require prbc today 01/27 is off amio, on epoogen, hgb reviewed, 7.2, transfuse if unstable 01/28 pain meds given, some foaming around mouth, no bleeding 01/29 hd was done yesterday, no bleedig, cbc pending, asa given 01/30 labs are noted, no bleeding, labs reviewed, pending meds 02/01 labs are noted, no bleeding, meds reviewed, no f/c, trach/vent 02/02 labs noted, no night sweats, t/v, labs ordered for am 02/03 labs reviewed, meds noted, no bleeding, hgb 7.9 02/04 meds noted, no bleeding, labs reviewed, hgb 8 Objective Objective Current Medications Medications (Trade) Dose Ordered Sig/Penny Route PRN Reason Start Time Stop Time Status Last Admin Dose Admin Acetaminophen (Tylenol) 500 mg Q6H PRN GT FEVER 01/21/20 20:45 02/20/20 20:44 01/29/20 02:01 Acetaminophen/ Hydrocodone Bitart ([place] 5/325) 1 tab Q6H PRN GT Moderate Breakthru Pain (5-7) 01/31/20 07:45 02/07/20 07:44 02/04/20 14:06 Amantadine HCl (Symmetrel) 100 mg TWICE A DAY GT 01/31/20 18:00 03/01/20 17:59 02/04/20 17:15 Amlodipine Besylate (Norvasc) 5 mg BID GT 01/22/20 18:00 02/20/20 15:44 02/04/20 17:16 Aspirin (ASA) 81 mg DAILY GT 01/20/20 09:00 03/05/20 08:59 02/04/20 08:09 Atorvastatin Calcium (Lipitor) 10 mg BEDTIME GT 01/17/20 21:00 04/16/20 20:59 02/04/20 20:24 Chlorhexidine Gluconate (Ling-Hex 2%) 1 applic DAILY@199901/17/20 20:00 04/16/20 19:59 02/04/20 20:24 Dextrose (Dextrose 50%) 25 ml Q30M PRN IV Hypoglycemia 01/15/20 22:15 04/14/20 22:14 Dextrose (Dextrose 50%) 50 ml Q30M PRN IV Hypoglycemia 01/15/20 22:15 04/14/20 22:14 01/22/20 17:54 Docusate Sodium (Colace) 200 mg BIDPRN PRN GT Constipation 01/31/20 07:45 03/01/20 07:44 02/04/20 11:21 Epoetin Gelacio (Epoetin Gelacio(ESRD on dialysis)) 10,000 unit MON-MON-MON SUBQ 01/27/20 21:00 04/26/20 20:59 02/03/20 20:54 Hydralazine HCl (Apresoline) 25 mg Q6HR GT 01/26/20 18:15 04/25/20 18:14 02/05/20 05:11 Isosorbide Dinitrate (Isordil) 20 mg TID GT 01/25/20 09:00 02/19/20 08:59 02/04/20 17:15 Lactulose (Cephulac) 20 gm THREE TIMES A DAY GT 02/04/20 13:00 03/05/20 12:59 02/04/20 17:14 Lansoprazole (Prevacid) 30 mg BID GT 01/19/20 18:00 02/18/20 17:59 02/04/20 17:15 Metoclopramide HCl (Reglan) 5 mg Q6H PRN IVP Nausea & Vomiting 01/15/20 22:15 02/14/20 22:14 Metoprolol Tartrate (Lopressor) 25 mg Q12HR ORAL 01/27/20 21:00 04/22/20 20:59 02/04/20 20:25 Polyethylene Glycol (Miralax) 17 gm BEDTIME GT 02/04/20 21:00 03/05/20 20:59 02/04/20 20:24 Sodium Hypochlorite (Dakin's Quarter Strength) 1 applic DAILY TOPIC 01/30/20 09:00 02/29/20 08:59 02/04/20 08:11 Zinc Oxide (Zinc Oxide) 1 applic TIDPRN PRN TOPIC diogenes GT 01/16/20 13:15 04/15/20 13:14 01/16/20 14:55 Last 24 Hour Vital Signs Date Time Temp Pulse Resp B/P (MAP) Pulse Ox O2 Delivery O2 Flow Rate FiO2 02/05/20 05:11 135/65 02/05/20 04:00 Mechanical Ventilator Mechanical Ventilator 02/05/20 04:00 40 02/05/20 03:44 65 02/05/20 02:50 69 18 40 02/05/20 00:57 144/70 02/05/20 00:26 70 02/05/20 00:00 Mechanical Ventilator Mechanical Ventilator 02/05/20 00:00 98.2 74 20 144/63 (90) 95 02/05/20 00:00 40 02/04/20 22:54 Mechanical Ventilator 100 02/04/20 22:37 68 14 40 02/04/20 20:25 74 145/67 02/04/20 20:00 97.9 74 17 145/67 (93) 100 02/04/20 20:00 Mechanical Ventilator Mechanical Ventilator 02/04/20 20:00 40 02/04/20 19:50 71 02/04/20 19:16 70 21 40 02/04/20 17:16 142/69 02/04/20 17:16 68 142/69 02/04/20 17:15 142/69 02/04/20 16:00 40 02/04/20 16:00 Mechanical Ventilator Mechanical Ventilator 02/04/20 16:00 65 02/04/20 16:00 97.9 68 16 142/69 (93) 100 02/04/20 15:35 72 18 40 02/04/20 14:36 98.1 02/04/20 12:32 138/67 02/04/20 12:00 Mechanical Ventilator Mechanical Ventilator 02/04/20 12:00 98.1 68 18 138/67 (90) 99 02/04/20 12:00 62 02/04/20 12:00 60 02/04/20 11:05 70 26 60 02/04/20 08:10 71 135/56 02/04/20 08:10 71 135/56 02/04/20 08:09 135/56 02/04/20 08:00 60 02/04/20 08:00 Mechanical Ventilator Mechanical Ventilator 02/04/20 08:00 98.2 71 16 135/56 (82) 99 02/04/20 08:00 60 02/04/20 07:20 67 26 60 02/04/20 05:17 131/64 02/04/20 04:21 62 02/04/20 04:00 98.1 62 16 132/65 (87) 99 02/04/20 04:00 Mechanical Ventilator Mechanical Ventilator 02/04/20 04:00 70 02/04/20 02:41 62 17 60 02/04/20 00:50 125/56 02/04/20 00:00 98.4 60 16 125/56 (79) 99 02/04/20 00:00 Mechanical Ventilator Mechanical Ventilator 02/04/20 00:00 61 02/03/20 22:44 60 14 60 02/03/20 20:54 64 131/63 02/03/20 20:00 98.2 67 16 131/63 (85) 99 02/03/20 20:00 70 02/03/20 20:00 Mechanical Ventilator Mechanical Ventilator 02/03/20 19:47 71 24 70 02/03/20 19:07 64 02/03/20 17:28 130/53 02/03/20 17:28 130/53 02/03/20 17:28 72 130/53 02/03/20 16:00 Mechanical Ventilator Mechanical Ventilator 02/03/20 16:00 70 02/03/20 16:00 98.2 71 16 130/53 (78) 99 02/03/20 16:00 72 02/03/20 15:05 82 24 70 02/03/20 13:27 131/93 02/03/20 13:12 81 20 131/93 (106) 96 02/03/20 12:20 138/65 02/03/20 12:00 Mechanical Ventilator Mechanical Ventilator 02/03/20 12:00 98.1 66 18 138/65 (89) 96 02/03/20 12:00 70 02/03/20 11:43 67 02/03/20 11:05 67 20 70 02/03/20 09:08 83 145/63 02/03/20 09:08 145/63 02/03/20 09:08 83 145/63 02/03/20 08:00 Mechanical Ventilator Mechanical Ventilator 02/03/20 08:00 70 02/03/20 08:00 78 02/03/20 08:00 98.2 83 22 145/63 (90) 95 02/03/20 07:20 79 24 60 Intake and Output 02/04/20 02/05/20 19:00 07:00 Intake Total 570 ml 340 ml Output Total 2200 ml Balance -1630 ml 340 ml Free Water 90 ml 60 ml Tube Feeding 480 ml 280 ml Output Urine Total 200 ml Hemodialysis UF 2000 ml # Bowel Movements 1 3 Labs Test 02/02/20 12:19 02/03/20 03:23 02/03/20 13:45 02/04/20 03:05 POC Whole Blood Glucose 80 MG/DL (74-106) 89 MG/DL (74-106) White Blood Count 5.7 K/UL (4.8-10.8) 5.9 K/UL (4.8-10.8) Red Blood Count 3.00 M/UL (4.20-5.40) 2.72 M/UL (4.20-5.40) Hemoglobin 8.5 G/DL (12.0-16.0) 7.9 G/DL (12.0-16.0) Hematocrit 25.2 % (37.0-47.0) 22.2 % (37.0-47.0) Mean Corpuscular Volume 84 FL (80-99) 82 FL (80-99) Mean Corpuscular Hemoglobin 28.4 PG (27.0-31.0) 28.9 PG (27.0-31.0) Mean Corpuscular Hemoglobin Concent 33.9 G/DL (32.0-36.0) 35.4 G/DL (32.0-36.0) Red Cell Distribution Width 14.2 % (11.6-14.8) 14.9 % (11.6-14.8) Platelet Count 447 K/UL (150-450) 444 K/UL (150-450) Mean Platelet Volume 6.6 FL (6.5-10.1) 6.2 FL (6.5-10.1) Neutrophils (%) (Auto) 64.0 % (45.0-75.0) % (45.0-75.0) Lymphocytes (%) (Auto) 25.7 % (20.0-45.0) % (20.0-45.0) Monocytes (%) (Auto) 7.7 % (1.0-10.0) % (1.0-10.0) Eosinophils (%) (Auto) 1.6 % (0.0-3.0) % (0.0-3.0) Basophils (%) (Auto) 1.0 % (0.0-2.0) % (0.0-2.0) Sodium Level 136 MMOL/L (136-145) Potassium Level 3.7 MMOL/L (3.5-5.1) Chloride Level 97 MMOL/L (98-107) Carbon Dioxide Level 27 MMOL/L (21-32) Anion Gap 12 mmol/L (5-15) Blood Urea Nitrogen 105 mg/dL (7-18) Creatinine 4.1 MG/DL (0.55-1.30) Estimat Glomerular Filtration Rate 11.6 mL/min (>60) Glucose Level 79 MG/DL (74-106) Calcium Level 8.9 MG/DL (8.5-10.1) Phosphorus Level 5.1 MG/DL (2.5-4.9) Magnesium Level 2.8 MG/DL (1.8-2.4) Total Bilirubin 0.4 MG/DL (0.2-1.0) Aspartate Amino Transf (AST/SGOT) 29 U/L (15-37) Alanine Aminotransferase (ALT/SGPT) 12 U/L (12-78) Alkaline Phosphatase 166 U/L (46-116) Pro-B-Type Natriuretic Peptide > 93862 pg/mL (0-125) Total Protein 7.1 G/DL (6.4-8.2) Albumin 1.9 G/DL (3.4-5.0) Globulin 5.2 g/dL Albumin/Globulin Ratio 0.4 (1.0-2.7) Test 02/05/20 03:00 White Blood Count 5.5 K/UL (4.8-10.8) Red Blood Count 2.82 M/UL (4.20-5.40) Hemoglobin 8.0 G/DL (12.0-16.0) Hematocrit 23.1 % (37.0-47.0) Mean Corpuscular Volume 82 FL (80-99) Mean Corpuscular Hemoglobin 28.4 PG (27.0-31.0) Mean Corpuscular Hemoglobin Concent 34.7 G/DL (32.0-36.0) Red Cell Distribution Width 15.0 % (11.6-14.8) Platelet Count 474 K/UL (150-450) Mean Platelet Volume 6.1 FL (6.5-10.1) Neutrophils (%) (Auto) 68.4 % (45.0-75.0) Lymphocytes (%) (Auto) 23.5 % (20.0-45.0) Monocytes (%) (Auto) 7.2 % (1.0-10.0) Eosinophils (%) (Auto) 0.0 % (0.0-3.0) Basophils (%) (Auto) 0.9 % (0.0-2.0) Sodium Level 136 MMOL/L (136-145) Potassium Level 3.5 MMOL/L (3.5-5.1) Chloride Level 97 MMOL/L (98-107) Carbon Dioxide Level 30 MMOL/L (21-32) Anion Gap 9 mmol/L (5-15) Blood Urea Nitrogen 69 mg/dL (7-18) Creatinine 3.2 MG/DL (0.55-1.30) Estimat Glomerular Filtration Rate 15.5 mL/min (>60) Glucose Level 87 MG/DL (74-106) Calcium Level 8.5 MG/DL (8.5-10.1) Height (Feet): 5 Height (Inches): 6.00 Weight (Pounds): 150 Objective Physical Exam: Vitals: reviewed General: LASHAUN ROCHE: nc, at Neck: supple ++trach/vent Chest: clear breath sounds bilaterally Cardiovascular: RRR, no s3, s4 Abdomen: soft, nontender, nd +gtube Extremities: no cce, normal range of motion Neuro: alert Evan Muhammad MD Feb 05, 2020 06:38
--- NOTE | 2020-02-05 06:54 | General Progress Note ---
Subjective ROS Limited/Unobtainable: No Allergies: Coded Allergies: No Known Allergies (Unverified , 10/10/17) Objective Last 24 Hour Vital Signs Date Time Temp Pulse Resp B/P (MAP) Pulse Ox O2 Delivery O2 Flow Rate FiO2 02/05/20 05:11 135/65 02/05/20 04:00 98.5 64 17 135/78 (97) 97 02/05/20 04:00 Mechanical Ventilator Mechanical Ventilator 02/05/20 04:00 40 02/05/20 03:44 65 02/05/20 02:50 69 18 40 02/05/20 00:57 144/70 02/05/20 00:26 70 02/05/20 00:00 Mechanical Ventilator Mechanical Ventilator 02/05/20 00:00 98.2 74 20 144/63 (90) 95 02/05/20 00:00 40 02/04/20 22:54 Mechanical Ventilator 100 02/04/20 22:37 68 14 40 02/04/20 20:25 74 145/67 02/04/20 20:00 97.9 74 17 145/67 (93) 100 02/04/20 20:00 Mechanical Ventilator Mechanical Ventilator 02/04/20 20:00 40 02/04/20 19:50 71 02/04/20 19:16 70 21 40 02/04/20 17:16 142/69 02/04/20 17:16 68 142/69 02/04/20 17:15 142/69 02/04/20 16:00 40 02/04/20 16:00 Mechanical Ventilator Mechanical Ventilator 02/04/20 16:00 65 02/04/20 16:00 97.9 68 16 142/69 (93) 100 02/04/20 15:35 72 18 40 02/04/20 14:36 98.1 02/04/20 12:32 138/67 02/04/20 12:00 Mechanical Ventilator Mechanical Ventilator 02/04/20 12:00 98.1 68 18 138/67 (90) 99 02/04/20 12:00 62 02/04/20 12:00 60 02/04/20 11:05 70 26 60 02/04/20 08:10 71 135/56 02/04/20 08:10 71 135/56 02/04/20 08:09 135/56 12/22/20 08:00 60 02/04/20 08:00 Mechanical Ventilator Mechanical Ventilator 02/04/20 08:00 98.2 71 16 135/56 (82) 99 02/04/20 08:00 60 02/04/20 07:20 67 26 60 Intake and Output 02/04/20 02/05/20 19:00 07:00 Intake Total 570 ml 420 ml Output Total 2200 ml 1000 ml Balance -1630 ml -580 ml Free Water 90 ml 60 ml Tube Feeding 480 ml 360 ml Output Urine Total 200 ml 1000 ml Hemodialysis UF 2000 ml # Bowel Movements 1 4 Laboratory Tests 02/05/20 03:00: White Blood Count 5.5, Red Blood Count 2.82L, Hemoglobin 8.0L, Hematocrit 23.1L, Mean Corpuscular Volume 82, Mean Corpuscular Hemoglobin 28.4, Mean Corpuscular Hemoglobin Concent 34.7, Red Cell Distribution Width 15.0H, Platelet Count 474H, Mean Platelet Volume 6.1L, Neutrophils (%) (Auto) 68.4, Lymphocytes (%) (Auto) 23.5, Monocytes (%) (Auto) 7.2, Eosinophils (%) (Auto) 0.0, Basophils (%) (Auto) 0.9, Sodium Level 136, Potassium Level 3.5, Chloride Level 97L, Carbon Dioxide Level 30, Anion Gap 9, Blood Urea Nitrogen 69H, Creatinine 3.2H, Estimat Glomerular Filtration Rate 15.5, Glucose Level 87, Calcium Level 8.5 Height (Feet): 5 Height (Inches): 6.00 Weight (Pounds): 150 General Appearance: lethargic EENT: normal ENT inspection Neck: normal alignment Cardiovascular: normal rate Respiratory/Chest: decreased breath sounds Abdomen: hypoactive bowel sounds Assessment/Plan Problem List: (1) Hx of CABG ICD Codes: Z95.1 - Presence of aortocoronary bypass graft SNOMED: 089206871, 806666466 (2) History of tracheostomy ICD Codes: Z98.890 - Other specified postprocedural states SNOMED: 475338199, 922419086 (3) PEG (percutaneous endoscopic gastrostomy) status ICD Codes: Z93.1 - Gastrostomy status SNOMED: 344573942, 385769947 (4) S/P aortic dissection repair ICD Codes: Z98.890 - Other specified postprocedural states SNOMED: 130189290, 947890247 (5) Renal failure ICD Codes: N19 - Unspecified kidney failure SNOMED: 43594116, 352182145 (6) Anemia ICD Codes: D64.9 - Anemia, unspecified SNOMED: 037044113 Assessment/Plan: stable H&H repeat stool ob GTF some GT leak add reglan add topical Zinc oxide HD per nephrology persistent elevated lipase\ ct reviewed Inder Mccauley MD Feb 05, 2020 06:54
--- NOTE | 2020-02-05 06:55 | NUR ---
NURSE NOTES: Made Dr. Mccauley, aware regarding leaking Gtube site, and per Parisa Allen, reduce rate to 35cc/hr instead of 40cc/hr. noted.
[2020-02-05] MEDS: Metoclopramide 10mg/2ml Inj IVP SCH ×3 (07:00→17:59)
--- NOTE | 2020-02-05 07:10 | NUR ---
NURSE HAND-OFF REPORT: Important Events on Shift:[hypoglycemic 66, need OB stool] Patient Status: [stable] Diet: [nep 35 ml/hr] Pending Orders: [n/a] Pending Results/Labs:[n/a] Pending MD notification:[n.a] Latest Vital Signs: Temperature 98.5 , Pulse 64 , B/P 135 /65 , Respiratory Rate 17 , O2 SAT 97 , Mechanical Ventilator, O2 Flow Rate . Vital Sign Comment: [stable] EKG Rhythm: Sinus Rhythm Rhythm change?: N MD Notified?: MD Response: Latest [place] Fall Score: 50 Fall Risk: High Risk Safety Measures: Call light Within Reach, Bed Alarm Zone 1, Side Rails Side Rails x2, Bed position Low and Locked. Fall Precautions: Yellow Socks Report given to [Jigna ZIMMERMAN].
--- NOTE | 2020-02-05 07:15 | NUR ---
NURSE NOTES: Received patient report from Zena Harmon RN. Patient is AO x1, in bed awake at this time. Pt on Vent Shiley 6 AC 14 TV 500 Fio2 40% PEEP 5. Breathing is even and unlabored with no signs of respiratory distress. No pain or discomfort noted at this time. Left FA 22G and Left wrist 18G IV sites are intact, clean, and patent. Bed in lowest position, locked with siderails x2 up. Call light within reach.
[2020-02-05 08:00] VITALS: BP 145/82
[2020-02-05] MEDS: Dakin's 0.125% Soln (Quarter Strength) 16oz TOPIC SCH (09:00)
--- NOTE | 2020-02-05 09:02 | Infectious Diseases Prog Note ---
Assessment/Plan 49yo F with: AF Sepsis Leukocytosis Hypoxia on vent Pneumonia c/b L pleural effusion (recurrent, prior determined to be transudative) - s/p thora 01/21, 1050cc removed Volume overload, BNP >35,0000, likely 2/2 progressive CKD --> ESRD ?Pancreatitis, Lipase >2000 Acute anemia to 5s CONS bacteremia, ?contaminant Aflutter w/ RVR 01/13 BCx 2/2 +S. epi COVID PCR neg Flu neg CXR: Large left pleural effusion. Bilateral interstitial and airspace infiltrates versus edema MRSA nares neg 01/16 BCx NTD 01/17 BCx /2 +Staph auricularis (skin colonizer) 01/18 Resp cx +MDR CRE PsA (S-gent, I-colistin, R-polyB) 01/18 C.dif neg 01/18 CXR: Similar opacification of the left hemithorax likely representing combination of pleural effusion with atelectasis versus pneumonia/edema. Decreased but persistent hazy opacity throughout the right lung may represent edema versus infectious/inflammatory process. 01/20 BCx NTD 01/21 L thora 1050 cc removed, cx NTD 01/25 Wound cx from Gtube site +CRE Kleb pna (arnett-R) and MDR PsA (colonizers) 01/26 CT A/P: Limited exam, due to severe diffuse anasarca. Ascites. Bilateral pleural effusions. Basilar pulmonary atelectatic changes and consolidation. Gastrostomy. Atrophic left kidney with a nephroureteral stents again demonstrated. Possible retrococcygeal decubitus changes. Correlate with clinical findings, consider MRI if there is concern for sacral osteomyelitis. Right hip intertrochanteric fracture, also previously demonstrated. Left femoral dialysis catheter. Nonspecific right lobe liver lesion is unchanged, not well- demonstrated. ctasia bordering on aneurysmal dilatation and possible chronic dissection of the distal thoracic aorta, also previously described. JAVIER on CKD On previous admission Sep-Oct 2019 required HD for short period Going to start HD this admission again R/o COVID / COVID PCR neg 12/29 neg at [facility] per report H/o UTI 10/15 u/a wbc 30-40, nit neg, leuk +3; ucx ESBL P. mirablis, ESBL M. morganii //20 u/a wbc tnct, nit neg, leuk +3; ucx >100k MDR P. stuarti (S Ceftriaxone, Meropenem) 10/07 u/a wbc tnct, nit neg, leuk ; ucx >100k VRE 10/15/19 u/a wbc tnct; ucx >100k ESBL P. stuarti (S ertapenem, aztreonam) H/o transudative pleural effusion 11/28 Sp Thora (w: 169, PMN: 2%, L: 49% , LDH: 57, prot 2.5); cx Neg H/o PNA 10/15/19 Resp cx ESBL P. mirabilis, MDR P.a. (S only to Gent) 09/22 Resp cx + MDR PsA (S-gent; I-colistin; R-levofloxacin, Zosyn, angelo) 09/16/19 Sp cx ESBL P. mirablis H/o PPM site (pocket) infection and pocket abscess 2ry to S. epi-11/2018, sp >6weeks IV vancomycin 11/27 SP ABBIE: no evidence for vegetation on any of the valves 11/26/18 SP PPM removal: OR findings:The fibrous capsule enclosing the generator was then opened and there was a [id number] amount of yellowish fluid drainage. The generator was then removed.Atrial and ventricular leads were detached. The necrotic tissue of the pocket was then removed and the pocket was flushed with an antibiotic solution. Capsule, wound tissue and lead tip cx: Neg 2d echo: no vegetation seen US chest: 4.6 x 3.4 x 0.9 cm hypoechoic/anechoic area overlying left chest pacemaker power pack. This could represent either a discrete fluid collection or a focal area of very edematous tissue. Infected fluid pocket also possible. 11/18 Bcx 3/4 S. epi; 11/20 Bcx neg; 11/24 Bcx Neg; 11/27 Bcx Neg CAD s/p CABG GERD/gastritis Afib HTN Dysphagia sp GT Aortic dissection s/p repair 2017 S/p PPM Parkinson's Disease Schizophrenia Anxiety COPD Chronic resp failure s/p trach Hx of tracheal bleeding [place] resident ([facility]) VRE and MRSA colonized Plan: Cont to monitor off abx OK to d/c from ID standpoint Wound not treat CRE Kleb pna nor MDR PsA from G-tube cx, likely colonizer and no signs of active infection in that area 01/31 SP angelo/inh tobra #10 for pna 01/23 SP vanco IV #10 given CONS/GPC bacteremia 01/16 SP Zosyn #2 01/14 SP dex 10mg in ED 12/10 SP IV Gentamycin #10 12/07 SP Meropenem #10 12/01 SP IV Vancomycin #5 11/28 Sp Cefepime #2 and IV Gentamycin x1 Monitor CBC/CMP Monitor temp curve, hemodynamics Monitor resp status D/w RN Thank you for this consult. [facility] will continue to follow. Subjective Allergies: Coded Allergies: No Known Allergies (Unverified , 10/10/17) AF NAD on vent 40% PEEP 5 WBC 5.5 Off abx Objective Last 24 Hour Vital Signs Date Time Temp Pulse Resp B/P (MAP) Pulse Ox O2 Delivery O2 Flow Rate FiO2 02/05/20 05:11 135/65 02/05/20 04:00 98.5 64 17 135/78 (97) 97 02/05/20 04:00 Mechanical Ventilator Mechanical Ventilator 02/05/20 04:00 40 02/05/20 03:44 65 02/05/20 02:50 69 18 40 02/05/20 00:57 144/70 02/05/20 00:26 70 02/05/20 00:00 Mechanical Ventilator Mechanical Ventilator 02/05/20 00:00 98.2 74 20 144/63 (90) 95 02/05/20 00:00 40 02/04/20 22:54 Mechanical Ventilator 100 02/04/20 22:37 68 14 40 02/04/20 20:25 74 145/67 02/04/20 20:00 97.9 74 17 145/67 (93) 100 02/04/20 20:00 Mechanical Ventilator Mechanical Ventilator 02/04/20 20:00 40 02/04/20 19:50 71 02/04/20 19:16 70 21 40 02/04/20 17:16 142/69 02/04/20 17:16 68 142/69 02/04/20 17:15 142/69 02/04/20 16:00 40 02/04/20 16:00 Mechanical Ventilator Mechanical Ventilator 02/04/20 16:00 65 02/04/20 16:00 97.9 68 16 142/69 (93) 100 02/04/20 15:35 72 18 40 02/04/20 14:36 98.1 02/04/20 12:32 138/67 02/04/20 12:00 Mechanical Ventilator Mechanical Ventilator 02/04/20 12:00 98.1 68 18 138/67 (90) 99 02/04/20 12:00 62 02/04/20 12:00 60 02/04/20 11:05 70 26 60 Height (Feet): 5 Height (Inches): 6.00 Weight (Pounds): 150 Gen: NAD HEENT: NCAT, +trach CV: RRR Pulm: CTAB on vent Abd: Non-distended, +PEG with skin intact wo erythema or discharge, but brownish discharge on dressing Ext: No c/c/e Skin: No visible rashes Neuro: Awake, minimally interactive Lines: L fem HD cath Laboratory Tests Test 02/05/20 03:00 White Blood Count 5.5 K/UL (4.8-10.8) Red Blood Count 2.82 M/UL (4.20-5.40) L Hemoglobin 8.0 G/DL (12.0-16.0) L Hematocrit 23.1 % (37.0-47.0) L Mean Corpuscular Volume 82 FL (80-99) Mean Corpuscular Hemoglobin 28.4 PG (27.0-31.0) Mean Corpuscular Hemoglobin Concent 34.7 G/DL (32.0-36.0) Red Cell Distribution Width 15.0 % (11.6-14.8) H Platelet Count 474 K/UL (150-450) H Mean Platelet Volume 6.1 FL (6.5-10.1) L Neutrophils (%) (Auto) 68.4 % (45.0-75.0) Lymphocytes (%) (Auto) 23.5 % (20.0-45.0) Monocytes (%) (Auto) 7.2 % (1.0-10.0) Eosinophils (%) (Auto) 0.0 % (0.0-3.0) Basophils (%) (Auto) 0.9 % (0.0-2.0) Sodium Level 136 MMOL/L (136-145) Potassium Level 3.5 MMOL/L (3.5-5.1) Chloride Level 97 MMOL/L (98-107) L Carbon Dioxide Level 30 MMOL/L (21-32) Anion Gap 9 mmol/L (5-15) Blood Urea Nitrogen 69 mg/dL (7-18) H Creatinine 3.2 MG/DL (0.55-1.30) H Estimat Glomerular Filtration Rate 15.5 mL/min (>60) Glucose Level 87 MG/DL (74-106) Calcium Level 8.5 MG/DL (8.5-10.1) Current Medications Medications (Trade) Dose Ordered Sig/Penny Route PRN Reason Start Time Stop Time Status Last Admin Dose Admin Acetaminophen (Tylenol) 500 mg Q6H PRN GT FEVER 01/21/20 20:45 02/20/20 20:44 01/29/20 02:01 Acetaminophen/ Hydrocodone Bitart ([place] 5/325) 1 tab Q6H PRN GT Moderate Breakthru Pain (5-7) 01/31/20 07:45 02/07/20 07:44 02/04/20 14:06 Amantadine HCl (Symmetrel) 100 mg TWICE A DAY GT 01/31/20 18:00 03/01/20 17:59 02/04/20 17:15 Amlodipine Besylate (Norvasc) 5 mg BID GT 01/22/20 18:00 02/20/20 15:44 02/04/20 17:16 Aspirin (ASA) 81 mg DAILY GT 01/20/20 09:00 03/05/20 08:59 02/04/20 08:09 Atorvastatin Calcium (Lipitor) 10 mg BEDTIME GT 01/17/20 21:00 04/16/20 20:59 02/04/20 20:24 Chlorhexidine Gluconate (Ling-Hex 2%) 1 applic DAILY@1999 TOPIC 01/17/20 20:00 04/16/20 19:59 02/04/20 20:24 Dextrose (Dextrose 50%) 25 ml Q30M PRN IV Hypoglycemia 01/15/20 22:15 04/14/20 22:14 Dextrose (Dextrose 50%) 50 ml Q30M PRN IV Hypoglycemia 01/15/20 22:15 04/14/20 22:14 01/22/20 17:54 Docusate Sodium (Colace) 200 mg BIDPRN PRN GT Constipation 01/31/20 07:45 03/01/20 07:44 02/04/20 11:21 Epoetin Gelacio (Epoetin Gelacio(ESRD on dialysis)) 10,000 unit SUBQ 01/27/20 21:00 04/26/20 20:59 02/03/20 20:54 Hydralazine HCl (Apresoline) 25 mg Q6HR GT 01/26/20 18:15 04/25/20 18:14 02/05/20 05:11 Isosorbide Dinitrate (Isordil) 20 mg TID GT 01/25/20 09:00 02/19/20 08:59 02/04/20 17:15 Lactulose (Cephulac) 20 gm THREE TIMES A DAY GT 02/04/20 13:00 03/05/20 12:59 02/04/20 17:14 Lansoprazole (Prevacid) 30 mg BID GT 01/19/20 18:00 02/18/20 17:59 02/04/20 17:15 Metoclopramide HCl (Reglan) 5 mg Q6HR IVP 02/05/20 07:00 03/06/20 06:59 Metoprolol Tartrate (Lopressor) 25 mg Q12HR ORAL 01/27/20 21:00 04/22/20 20:59 02/04/20 20:25 Polyethylene Glycol (Miralax) 17 gm BEDTIME GT 02/04/20 21:00 03/05/20 20:59 02/04/20 20:24 Sodium Hypochlorite (Dakin's Quarter Strength) 1 applic DAILY TOPIC 01/30/20 09:00 02/29/20 08:59 02/04/20 08:11 Zinc Oxide (Zinc Oxide) 1 applic TIDPRN PRN TOPIC diogenes GT 01/16/20 13:15 04/15/20 13:14 01/16/20 14:55 Ro Pack M.D. Feb 05, 2020 09:02
[2020-02-05] MEDS: Lactulose 20gm/30ml UDC GT SCH ×3 (09:29→17:59)
[2020-02-05] MEDS: HYDROcodone/Acetamin 5/325 tab GT PRN (09:30)
[2020-02-05] MEDS: Aspirin Baby 81mg GT SCH (09:32)
[2020-02-05] MEDS: Amantadine 100mg cap GT SCH ×2 (09:32→17:57)
--- NOTE | 2020-02-05 09:57 | NUR ---
RD ASSESSMENT & RECOMMENDATIONS SEE CARE ACTIVITY FOR COMPLETE ASSESSMENT DAILY ESTIMATED NEEDS: Needs based on Critical care, wound, renal dysfunction 56 kg abw 28-33 kcals/kg 0959-3405 total kcals W/ HD (1.5-2.0) g protein/kg 84-112 g total protein Fluid per MD NUTRITION DIAGNOSIS: * Swallowing difficulty R/T dysphagia, respiratory status as evidenced by vent dep via trach, GT Dep. * Increase kcal and pro needs r/t wound healing, renal dysfunction as evidenced by admitted w/ stage 4 sacral wound, admitted w/ JAVIER, now on HD. CURRENT TF: Nepro @ 40ml/hr x 24 hrs-> now @35ml/hr ENTERAL NUTRITION RECOMMENDATIONS: Nepro @ 40ml/hr x 24 hrs + Prosource 1pkt QD to provide 960ml, 1728kcal, 78g+11g prot, 698ml free water * Maintain current TF @ goal as tolerated * Add Prosource 1pkt QD to better meet increased protein needs (additional 11g prot) * Water flush per MD/ HOB over 30 degrees --- Tf lowered to 35ml/hr, increased Prosource to BID to better meet est pro needs (11g/pro each). ADDITIONAL RECOMMENDATIONS: * Per SNF in NOV 2019: HT=63"/ Rec daily calibrated bedscale wt * Monitor for continuity of HD, next HD 02/03 * Rec phos binders- consistently elevated phos level * Wound care: add Nephrovite x 1, ZnSO4 220mg QD x 10 days Reynaldo BID via PEG (mix w/ 2-4 oz water); vit C per nephro * Monitor TF tolerance: TF lowered for GT leak * Add bowel regimen: bm noted 02/04
--- NOTE | 2020-02-05 11:29 | Pulmonology Progress Note ---
Subjective ROS Limited/Unobtainable: No Interval Events: None new Constitutional: Reports: no symptoms HEENT: Repors: no symptoms Respiratory: Reports: no symptoms Cardiovascular: Reports: no symptoms Gastrointestinal/Abdominal: Reports: no symptoms Allergies: Coded Allergies: No Known Allergies (Unverified , 10/10/17) All Systems: reviewed and negative except above Objective Last 24 Hour Vital Signs Date Time Temp Pulse Resp B/P (MAP) Pulse Ox O2 Delivery O2 Flow Rate FiO2 02/05/20 09:31 67 145/82 02/05/20 09:31 145/82 02/05/20 09:31 67 145/82 02/05/20 08:00 Mechanical Ventilator Mechanical Ventilator 02/05/20 08:00 67 02/05/20 08:00 40 02/05/20 08:00 97.5 67 20 145/82 (103) 98 02/05/20 05:11 135/65 02/05/20 04:00 98.5 64 17 135/78 (97) 97 02/05/20 04:00 Mechanical Ventilator Mechanical Ventilator 02/05/20 04:00 40 02/05/20 03:44 65 02/05/20 02:50 69 18 40 02/05/20 00:57 144/70 02/05/20 00:26 70 02/05/20 00:00 Mechanical Ventilator Mechanical Ventilator 02/05/20 00:00 98.2 74 20 144/63 (90) 95 02/05/20 00:00 40 02/04/20 22:54 Mechanical Ventilator 100 02/04/20 22:37 68 14 40 02/04/20 20:25 74 145/67 02/04/20 20:00 97.9 74 17 145/67 (93) 100 02/04/20 20:00 Mechanical Ventilator Mechanical Ventilator 02/04/20 20:00 40 02/04/20 19:50 71 02/04/20 19:16 70 21 40 02/04/20 17:16 142/69 02/04/20 17:16 68 142/69 02/04/20 17:15 142/69 02/04/20 16:00 40 02/04/20 16:00 Mechanical Ventilator Mechanical Ventilator 02/04/20 16:00 65 02/04/20 16:00 97.9 68 16 142/69 (93) 100 02/04/20 15:35 72 18 40 02/04/20 14:36 98.1 02/04/20 12:32 138/67 02/04/20 12:00 Mechanical Ventilator Mechanical Ventilator 02/04/20 12:00 98.1 68 18 138/67 (90) 99 02/04/20 12:00 62 02/04/20 12:00 60 Intake and Output 02/04/20 02/05/20 19:00 07:00 Intake Total 570 ml 460 ml Output Total 2200 ml 1000 ml Balance -1630 ml -540 ml Free Water 90 ml 60 ml Tube Feeding 480 ml 400 ml Output Urine Total 200 ml 1000 ml Hemodialysis UF 2000 ml # Bowel Movements 1 4 General Appearance: no acute distress HEENT: normocephalic, other - trach Respiratory: chest wall non-tender, other - coarse lung sounds Cardiovascular: normal rate, regular rhythm Abdomen: soft, non tender Genitourinary: other - [place] Extremities: other - trace edema Laboratory Tests 02/04/20 13:29: POC Whole Blood Glucose 72L 02/04/20 18:21: POC Whole Blood Glucose [Pending] 02/05/20 03:00: White Blood Count 5.5, Red Blood Count 2.82L, Hemoglobin 8.0L, Hematocrit 23.1L, Mean Corpuscular Volume 82, Mean Corpuscular Hemoglobin 28.4, Mean Corpuscular Hemoglobin Concent 34.7, Red Cell Distribution Width 15.0H, Platelet Count 474H, Mean Platelet Volume 6.1L, Neutrophils (%) (Auto) 68.4, Lymphocytes (%) (Auto) 23.5, Monocytes (%) (Auto) 7.2, Eosinophils (%) (Auto) 0.0, Basophils (%) (Auto) 0.9, Sodium Level 136, Potassium Level 3.5, Chloride Level 97L, Carbon Dioxide Level 30, Anion Gap 9, Blood Urea Nitrogen 69H, Creatinine 3.2H, Estimat Glomerular Filtration Rate 15.5, Glucose Level 87, Calcium Level 8.5 Current Medications Medications (Trade) Dose Ordered Sig/Penny Route PRN Reason Start Time Stop Time Status Last Admin Dose Admin Acetaminophen (Tylenol) 500 mg Q6H PRN GT FEVER 01/21/20 20:45 02/20/20 20:44 01/29/20 02:01 Acetaminophen/ Hydrocodone Bitart ([place]run[place] 5/325) 1 tab Q6H PRN GT Moderate Breakthru Pain (5-7) 01/31/20 07:45 02/07/20 07:44 02/05/20 09:30 Amantadine HCl (Symmetrel) 100 mg TWICE A DAY GT 01/31/20 18:00 03/01/20 17:59 02/05/20 09:32 Amlodipine Besylate (Norvasc) 5 mg BID GT 01/22/20 18:00 02/20/20 15:44 02/05/20 09:31 Aspirin (ASA) 81 mg DAILY GT 01/20/20 09:00 03/05/20 08:59 02/05/20 09:32 Atorvastatin Calcium (Lipitor) 10 mg BEDTIME GT 01/17/20 21:00 04/16/20 20:59 02/04/20 20:24 Chlorhexidine Gluconate (Ling-Hex 2%) 1 applic DAILY@199901/17/20 20:00 04/16/20 19:59 02/04/20 20:24 Dextrose (Dextrose 50%) 25 ml Q30M PRN IV Hypoglycemia 01/15/20 22:15 04/14/20 22:14 Dextrose (Dextrose 50%) 50 ml Q30M PRN IV Hypoglycemia 01/15/20 22:15 04/14/20 22:14 01/22/20 17:54 Docusate Sodium (Colace) 200 mg BIDPRN PRN GT Constipation 01/31/20 07:45 03/01/20 07:44 02/04/20 11:21 Epoetin Gelacio (Epoetin Gelacio(ESRD on dialysis)) 10,000 unit MON-MON-MON SUBQ 01/27/20 21:00 04/26/20 20:59 02/03/20 20:54 Hydralazine HCl (Apresoline) 25 mg Q6HR GT 01/26/20 18:15 04/25/20 18:14 02/05/20 05:11 Isosorbide Dinitrate (Isordil) 20 mg TID GT 01/25/20 09:00 02/19/20 08:59 02/05/20 09:31 Lactulose (Cephulac) 20 gm THREE TIMES A DAY GT 02/04/20 13:00 03/05/20 12:59 02/05/20 09:29 Lansoprazole (Prevacid) 30 mg BID GT 01/19/20 18:00 02/18/20 17:59 02/05/20 09:31 Metoclopramide HCl (Reglan) 5 mg Q6HR IVP 02/05/20 07:00 03/06/20 06:59 02/05/20 07:00 Metoprolol Tartrate (Lopressor) 25 mg Q12HR ORAL 01/27/20 21:00 04/22/20 20:59 02/05/20 09:31 Polyethylene Glycol (Miralax) 17 gm BEDTIME GT 02/04/20 21:00 03/05/20 20:59 02/04/20 20:24 Sodium Hypochlorite (Dakin's Quarter Strength) 1 applic DAILY TOPIC 01/30/20 09:00 02/29/20 08:59 02/05/20 09:00 Zinc Oxide (Zinc Oxide) 1 applic TIDPRN PRN TOPIC diogenes GT 01/16/20 13:15 04/15/20 13:14 01/16/20 14:55 Assessment/Plan Assessment/Plan Assessment/Plan 1. Large left effusion. - S/p thoracentesis; CXR better - pleural fluid pathology report: negative for malignant cell 2. Chronic respiratory failure. - Continue trach care - Cont AC mode - Currently saturating at 97% 3. Sepsis; improving 4. Anemia - improving - s/p transfusion - s/p Epogen - repeat stool OB pending per Dr. Mccauley s/p HD on broad-spectrum antibiotics. Pulmonary hygiene. DVT and GI prophylaxes. Dc planning in place FiO2 increased overnight to 60%; now decreased to 50%; will wean further Elijah Stephen,Elijah Harrison MD Feb 05, 2020 11:29
[2020-02-05 12:00] VITALS: BP 140/69
--- NOTE | 2020-02-05 13:02 | Nephrology Progress Note ---
Assessment/Plan Problem List: (1) ARF (acute renal failure) (2) Pacemaker (3) Sepsis (4) Hyponatremia Assessment (1) JAVIER (acute kidney injury) (2) Renal failure (ARF), acute on chronic (3) Feeding by G-tube (4) Tracheostomy in place (5) Electrolyte imbalance, hyponatremia (6) Anemia, severe (7) Respiratory failure, acute and chronic (8) Elevated lipase, pancreatitis (9) Elevated troponin I (10) Sepsis Plan February 04: Labs reviewed. Dialyzed yesterday. With a plan for insertion of a tunneled dialysis catheter and discontinue left groin dialysis catheter afterwards. Check labs in a.m. Discussed with Dr. Dong. February 03: Labs reviewed. Due for dialysis today. Continue per consultants. February 02: Labs reviewed. Will order dialysis tomorrow. Continue per consultants. February 01: Labs reviewed. Creatinine gradually rising. Will dialyze as needed. Continue to monitor renal parameters. January 31: Last dialysis January 29. Labs reviewed. No need for dialysis today. Continue per current management. Hemodialysis as needed. Will check renal parameters and chemistries tomorrow. January 30: Patient was dialyzed yesterday. No labs drawn today. Continue to monitor renal parameters and dialyze as needed. Continue per consultants and PMD. January 29: Patient due for dialysis today. Today's can panel reviewed. Continue to monitor renal parameters and dialysis as needed. January 28: Patient last dialyzed January 26. No labs drawn today. Will order dialysis tomorrow. Check chemistry panel tomorrow. Continue per consultants. January 27: Patient was dialyzed yesterday . Labs were reviewed. Electrolytes within normal limit. Blood pressure stable. January 26: When visited the patient earlier today the patient was on dialysis. Tolerating well. Labs reviewed. Blood pressure stable. January 25: Dialysis for tomorrow. Labs reviewed. Hemoglobin remains low. Will adjust blood pressure medication. Hydralazine added to the regimen January 24: Last dialyzed January 22. Labs reviewed. Status quo. Will dialyze as needed. Low hemoglobin noted. Transfusion per PMD decision. Epogen started. \January 23: Dialyzed yesterday. Today's labs reviewed. Continue to monitor renal parameters and arrange for dialysis as needed. Continue per PMD. January 22: Seen earlier during dialysis. Labs reviewed. Medication list reviewed. Continue current management. January 21: Labs reviewed. Medication list reviewed. Next hemodialysis tomorrow. Blood pressure medication adjusted. January 20: Dialyzed yesterday. Labs reviewed. Continue per current management. Dialysis as needed. Add Norvasc to blood pressure regimen January 19: Due for dialysis today. Labs reviewed. Continue her current management. Continue to monitor renal parameters and electrolytes. January 18: Dialyzed yesterday. Labs reviewed. Renal parameters electrolytes much improved. Dialysis again tomorrow. Continue rest. January 17: Dialyzed this morning. Labs reviewed. Renal parameters and electrolyte abnormalities improved. Discussed with RN. Continue per cons ultants. January 16: Dialyzed yesterday. Labs improved. Next dialysis tomorrow. Continue per consultants. January 15: Patient to have dialysis catheter. Emergency dialysis for correction of uremia and electrolyte imbalances Antibiotics Transfusion Continue to monitor renal parameters Per orders Discussed with RN Subjective ROS Limited/Unobtainable: Yes Objective Objective Last 24 Hour Vital Signs Date Time Temp Pulse Resp B/P (MAP) Pulse Ox O2 Delivery O2 Flow Rate FiO2 02/05/20 12:10 138/80 02/05/20 12:10 138/80 02/05/20 12:04 62 20 40 02/05/20 12:00 98.3 70 18 140/69 (92) 99 02/05/20 09:31 67 145/82 02/05/20 09:31 145/82 02/05/20 09:31 67 145/82 02/05/20 08:00 Mechanical Ventilator Mechanical Ventilator 02/05/20 08:00 67 02/05/20 08:00 40 02/05/20 08:00 97.5 67 20 145/82 (103) 98 02/05/20 05:11 135/65 02/05/20 04:00 98.5 64 17 135/78 (97) 97 02/05/20 04:00 Mechanical Ventilator Mechanical Ventilator 02/05/20 04:00 40 02/05/20 03:44 65 02/05/20 02:50 69 18 40 02/05/20 00:57 144/70 02/05/20 00:26 70 02/05/20 00:00 Mechanical Ventilator Mechanical Ventilator 02/05/20 00:00 98.2 74 20 144/63 (90) 95 02/05/20 00:00 40 02/04/20 22:54 Mechanical Ventilator 100 02/04/20 22:37 68 14 40 02/04/20 20:25 74 145/67 02/04/20 20:00 97.9 74 17 145/67 (93) 100 02/04/20 20:00 Mechanical Ventilator Mechanical Ventilator 02/04/20 20:00 40 02/04/20 19:50 71 02/04/20 19:16 70 21 40 02/04/20 17:16 142/69 02/04/20 17:16 68 142/69 02/04/20 17:15 142/69 02/04/20 16:00 40 02/04/20 16:00 Mechanical Ventilator Mechanical Ventilator 02/04/20 16:00 65 02/04/20 16:00 97.9 68 16 142/69 (93) 100 02/04/20 15:35 72 18 40 02/04/20 14:36 98.1 Intake and Output 02/04/20 02/05/20 19:00 07:00 Intake Total 570 ml 460 ml Output Total 2200 ml 1000 ml Balance -1630 ml -540 ml Free Water 90 ml 60 ml Tube Feeding 480 ml 400 ml Output Urine Total 200 ml 1000 ml Hemodialysis UF 2000 ml # Bowel Movements 1 4 Laboratory Tests 02/04/20 13:29: POC Whole Blood Glucose 72L 02/04/20 18:21: POC Whole Blood Glucose [Pending] 02/05/20 03:00: White Blood Count 5.5, Red Blood Count 2.82L, Hemoglobin 8.0L, Hematocrit 23.1L, Mean Corpuscular Volume 82, Mean Corpuscular Hemoglobin 28.4, Mean Corpuscular Hemoglobin Concent 34.7, Red Cell Distribution Width 15.0H, Platelet Count 474H, Mean Platelet Volume 6.1L, Neutrophils (%) (Auto) 68.4, Lymphocytes (%) (Auto) 23.5, Monocytes (%) (Auto) 7.2, Eosinophils (%) (Auto) 0.0, Basophils (%) (Auto) 0.9, Sodium Level 136, Potassium Level 3.5, Chloride Level 97L, Carbon Dioxide Level 30, Anion Gap 9, Blood Urea Nitrogen 69H, Creatinine 3.2H, Estimat Gl omerular Filtration Rate 15.5, Glucose Level 87, Calcium Level 8.5 Height (Feet): 5 Height (Inches): 6.00 Weight (Pounds): 150 General Appearance: no apparent distress EENT: other - Trach to vent Cardiovascular: normal rate Respiratory/Chest: decreased breath sounds Abdomen: soft Johnny Houston MD Feb 05, 2020 13:02
--- NOTE | 2020-02-05 13:03 | NUR ---
NURSE NOTES: Dr. Houston notified Tunneled cath will be done tomorrow-OK
--- NOTE | 2020-02-05 15:03 | NUR ---
CASE MANAGEMENT:REVIEW 02/05/20 SI: SEPSIS. PNA. AC/CHR RENAL FAILURE(TEMPORARY HD CATH) TRACH/VENT DEPENDENT 98.3 70 18 140/69 99% ON VENT SUPPORT W/40% FIO2 H/H-8.0/23.1 BUN+69 CR+3.2 IS: AMANTADINE GT BID LACTULOSE GT TID NORVASC GT BID LOPRESSOR GT Q12 ISORDIL GT TID ASA GT QD PREVACID GT BID : STEP DOWN UNIT DCP: FROM [facility] PLAN: TUNNELED CATH PLACEMENT ORDERED PATIENT IS FROM [facility] BUT THEY CANNOT TAKE PATIENT BACK D/T COVID OUTBREAK [facility] IS WILLING TO ACCEPT BUT THEY NEED A LETTER OF AGREEMENT FROM [facility] TO GET A [facility] [employer] SPLIT[employer] MACHINE OPERATOR TO RESPOND TO OUR CALLS REGARDING LETTER OF AGREEMENT PATIENT WILL ALSO NEED OUTPATIENT DIALYSIS
[2020-02-05 16:00] VITALS: BP 142/74
--- NOTE | 2020-02-05 17:38 | Surgery Progress Note ---
Surgery Progress Note Subjective Procedure Performed Left femoral temporary hemodialysis catheter insertion Additional Comments plan tunneled cath then remove fem line d/c planning Objective Last 24 Hour Vital Signs Date Time Temp Pulse Resp B/P (MAP) Pulse Ox O2 Delivery O2 Flow Rate FiO2 02/05/20 15:00 69 25 40 02/05/20 12:10 138/80 02/05/20 12:10 138/80 02/05/20 12:04 62 20 40 02/05/20 12:00 98.3 70 18 140/69 (92) 99 02/05/20 09:31 67 145/82 02/05/20 09:31 145/82 02/05/20 09:31 67 145/82 02/05/20 08:00 Mechanical Ventilator Mechanical Ventilator 02/05/20 08:00 67 02/05/20 08:00 40 02/05/20 08:00 97.5 67 20 145/82 (103) 98 02/05/20 05:11 135/65 02/05/20 04:00 98.5 64 17 135/78 (97) 97 02/05/20 04:00 Mechanical Ventilator Mechanical Ventilator 02/05/20 04:00 40 02/05/20 03:44 65 02/05/20 02:50 69 18 40 02/05/20 00:57 144/70 02/05/20 00:26 70 02/05/20 00:00 Mechanical Ventilator Mechanical Ventilator 02/05/20 00:00 98.2 74 20 144/63 (90) 95 02/05/20 00:00 40 02/04/20 22:54 Mechanical Ventilator 100 02/04/20 22:37 68 14 40 02/04/20 20:25 74 145/67 02/04/20 20:00 97.9 74 17 145/67 (93) 100 02/04/20 20:00 Mechanical Ventilator Mechanical Ventilator 02/04/20 20:00 40 02/04/20 19:50 71 02/04/20 19:16 70 21 40 I&O Intake and Output 02/04/20 02/05/20 19:00 07:00 Intake Total 570 ml 460 ml Output Total 2200 ml 1000 ml Balance -1630 ml -540 ml Free Water 90 ml 60 ml Tube Feeding 480 ml 400 ml Output Urine Total 200 ml 1000 ml Hemodialysis UF 2000 ml # Bowel Movements 1 4 Dressing: saturated Cardiovascular: RSR Respiratory: decreased breath sounds Abdomen: non-tender, present bowel sounds Extremities: edema, no tenderness, no cyanosis Laboratory Tests Test 02/04/20 18:21 02/05/20 03:00 POC Whole Blood Glucose Pending White Blood Count 5.5 K/UL (4.8-10.8) Red Blood Count 2.82 M/UL (4.20-5.40) L Hemoglobin 8.0 G/DL (12.0-16.0) L Hematocrit 23.1 % (37.0-47.0) L Mean Corpuscular Volume 82 FL (80-99) Mean Corpuscular Hemoglobin 28.4 PG (27.0-31.0) Mean Corpuscular Hemoglobin Concent 34.7 G/DL (32.0-36.0) Red Cell Distribution Width 15.0 % (11.6-14.8) H Platelet Count 474 K/UL (150-450) H Mean Platelet Volume 6.1 FL (6.5-10.1) L Neutrophils (%) (Auto) 68.4 % (45.0-75.0) Lymphocytes (%) (Auto) 23.5 % (20.0-45.0) Monocytes (%) (Auto) 7.2 % (1.0-10.0) Eosinophils (%) (Auto) 0.0 % (0.0-3.0) Basophils (%) (Auto) 0.9 % (0.0-2.0) Sodium Level 136 MMOL/L (136-145) Potassium Level 3.5 MMOL/L (3.5-5.1) Chloride Level 97 MMOL/L (98-107) L Carbon Dioxide Level 30 MMOL/L (21-32) Anion Gap 9 mmol/L (5-15) Blood Urea Nitrogen 69 mg/dL (7-18) H Creatinine 3.2 MG/DL (0.55-1.30) H Estimat Glomerular Filtration Rate 15.5 mL/min (>60) Glucose Level 87 MG/DL (74-106) Calcium Level 8.5 MG/DL (8.5-10.1) Plan Problems: (1) Dehydration (2) Acidosis (3) Depression (4) Pleural effusion (5) Respiratory failure (6) Schizophrenia (7) Hypoxia (8) UTI (urinary tract infection) (9) Pneumonia (10) NSTEMI (non-ST elevated myocardial infarction) (11) Tracheostomy in place (12) Feeding by G-tube (13) JAVIER (acute kidney injury) (14) Acute encephalopathy (15) Sacral decubitus ulcer, stage IV (16) Chronic respiratory failure (17) Ascites (18) Bacteremia (19) Hypernatremia (20) Proteinuria (21) Electrolyte imbalance (22) ACS (acute coronary syndrome) (23) Aortic dissection, thoracic (24) Respiratory failure, acute and chronic (25) JAVIER (acute kidney injury) (26) Abrasion of lip, initial encounter (27) COPD with exacerbation (28) Elevated alkaline phosphatase level (29) Renal failure (ARF), acute on chronic (30) HCAP (healthcare-associated pneumonia) (31) GT CLOGGED (32) Elevated lipase (33) Pancreatitis (34) Elevated troponin (35) Hypokalemia (36) Hyponatremia (37) Anemia (38) Renal failure (39) ARF (acute renal failure) (40) Pacemaker (41) Sepsis Assessment & Plan: leukocytosis anemia on HD renal insufficiency wounds addressed pancreatitis cont diet as tolerating trend labs lf'ts okay pt presented on admission with Tracheostomy ,GT and Multiple Pressure Injuries. Skin assessment of skin under tracheal collar without evidence of skin breakdown. Peristomal GT site excoriated.Moderate amt of dark red sanguineous exudate. Full Thickness Sacral Pressure Injury with undermined borders (L)9 cm x (W)12cm x (D)1.8cm,Undermining clockwise8-9 by 2.2cm @1o'clock,undermining clockwise 1-4 by 1.9 @ 9'oclock Scattered necrotic tissue within wound bed. Borders are loose and necrotic with marginal erythema to outer perimeter of wound. NO elevation in skin temp noted periwound. Wound is malodorous. Small amt Brown exudate noted. Resolving Pressure Injury L Ischium(L)1.5cm x (W)1.5cm. Base of wound is 80% pink epithelial with an area that is moist and pink. NO odor or exudate noted. Bilat foot-drop noted. L Heel is boggy with non-blanchable erythema(L)4cm x (W)4cm. R heel is boggy with non-Blanchable erythema(L)5cm x (W)6cm. Tx.Plan: Cleanse sacral wound with Dakin's 0.125% annie. Loosely pack with Dakin's moistened Kerlix(Attention to undermined borders). Apply Moisture Barrier Paste periwound. Cover with Optifoam drsg. Change Daily and PRN. Apply Cavilon Skin Barrier to R and L Hels. Cover each heel with Optifoam drsg. Change every 7 days and prn. Reposition at least every 2hours or as tolerated. Off-load heels with Pillow. APM/JENNIFER MAttress overlay DAILY ESTIMATED NEEDS: Needs based on Critical care, wound, renal dysfunction 56 kg abw 28-33 kcals/kg [id number] total kcals W/ HD (1.5-2.0) g protein/kg 84-112 g total protein Fluid per MD NUTRITION DIAGNOSIS: * Swallowing difficulty R/T dysphagia, respiratory status as evidenced by vent dep via trach, GT Dep. * Increase kcal and pro needs r/t wound healing, renal dysfunction as evidenced by admitted w/ stage 4 sacral wound, admitted w/ JAVIER, now on HD. CURRENT TF: Nepro @ 40ml/hr x 24 hrs ENTERAL NUTRITION RECOMMENDATIONS: Nepro @ 40ml/hr x 24 hrs + Prosource 1pkt QD to provide 960ml, 1728kcal, 78 g+11g prot, 698ml free water * Maintain current TF @ goal as tolerated * Add Prosource 1pkt QD to better meet increased protein needs (additional 11g prot) * Water flush per MD/ HOB over 30 degrees ADDITIONAL RECOMMENDATIONS: * Per SNF in NOV 2019: HT=63"/ Rec daily calibrated bedscale wt * Monitor for continuity of HD, next HD 02/03 * Rec phos binders- consistently elevated phos level * Wound care: add Nephrovite x 1, ZnSO4 220mg QD x 10 days Reynaldo BID via PEG (mix w/ 2-4 oz water); vit C per nephro * Monitor TF tolerance: elev lipase, slowly trending down * Add bowel regimen: no BM x 8 days, last BM on 01/25. (42) Hyponatremia Lane Saavedra Feb 05, 2020 17:38
--- NOTE | 2020-02-05 19:25 | NUR ---
NURSE HAND-OFF REPORT: Important Events on Shift:NA Patient Status: Stable Diet: Gtube Nepro @ 35ml/hr Pending Orders: NA Pending Results/Labs:NA Pending notification:NA Latest Vital Signs: Temperature 97.8 , Pulse 65 , B/P 142 /74 , Respiratory Rate 16 , O2 SAT 99 , Mechanical Ventilator, O2 Flow Rate . Vital Sign Comment: Stable EKG Rhythm: Sinus Rhythm Rhythm change?: N MD Notified?: Gabriel -Dr. Екатерина HATFIELD Response: Order Received& Read Back Latest Chavarria Fall Score: 50 Fall Risk: High Risk Safety Measures: Call light Within Reach, Bed Alarm Zone 1, Side Rails Side Rails x2, Bed position Low and Locked. Fall Precautions: Yellow Socks Report given to ERASMO Ndiaye.
--- NOTE | 2020-02-05 19:30 | NUR ---
NURSE NOTES: Received patient and report from ERASMO Benito using SBAR.Patient awake, oriented to person. On Trach to vent with Shiley #6 with settings are AC14 TV 500 Fio2 40% PEEP 5 with no respiratory distress.o2 sat 96-100%. SR on monitor. vs stable. Afebrile.On GTF with Nepro at 35cc/hr with no residual. Keep HOB elevated.Abdomen non distended, but noted brownish discharge on GT site dressing.changed dressing.F/C in place with yellow and clear urine draining well to gravity.No s/s of pain at this time. Bed in lowest position, alarm on.will continue plan of care.
[2020-02-05 20:00] VITALS: BP 128/73
[2020-02-05] MEDS: Dyna-Hex 2% Top Sol 2oz TOPIC SCH (21:04)
[2020-02-05] MEDS: Miralax 17gm pkt GT SCH (21:05)
[2020-02-05] MEDS: Epoetin Alfa-EPBX(ESRD on dialysis)10,000 unit/ml vial SUBQ SCH (21:05)
--- NOTE | 2020-02-05 22:10 | Cardiology Progress Note ---
Subjective DATE OF SERVICE: Feb 05, 2020 S/P left femoral cath for HD/UF yesterday - to be removed post HD/UF. Tunneled cath placement to follow. Remains in atrial fibrillation; rates controlled. Occasional PVC's - non- sustained BP range stable Full vent support via trach s/p left thorocentesis 01/22/20 Low hemoglobin; on epogen Objective Last 24 Hour Vital Signs Date Time Temp Pulse Resp B/P (MAP) Pulse Ox O2 Delivery O2 Flow Rate FiO2 02/05/20 21:04 72 128/73 02/05/20 20:00 Mechanical Ventilator Mechanical Ventilator 02/05/20 20:00 98.2 72 24 128/73 (91) 98 02/05/20 19:03 77 02/05/20 18:12 74 22 40 02/05/20 17:59 65 142/74 02/05/20 17:58 142/74 02/05/20 17:58 142/74 02/05/20 16:00 Mechanical Ventilator Mechanical Ventilator 02/05/20 16:00 69 02/05/20 16:00 40 02/05/20 16:00 97.8 65 16 142/74 (96) 99 02/05/20 15:00 69 25 40 02/05/20 12:10 138/80 02/05/20 12:10 138/80 02/05/20 12:04 62 20 40 02/05/20 12:00 98.3 70 18 140/69 (92) 99 02/05/20 12:00 62 02/05/20 12:00 Mechanical Ventilator Mechanical Ventilator 02/05/20 12:00 40 02/05/20 09:31 67 145/82 02/05/20 09:31 145/82 02/05/20 09:31 67 145/82 02/05/20 08:00 Mechanical Ventilator Mechanical Ventilator 02/05/20 08:00 67 02/05/20 08:00 40 02/05/20 08:00 97.5 67 20 145/82 (103) 98 02/05/20 07:29 68 14 40 02/05/20 05:11 135/65 02/05/20 04:00 98.5 64 17 135/78 (97) 97 02/05/20 04:00 Mechanical Ventilator Mechanical Ventilator 02/05/20 04:00 40 12/23/20 03:44 65 02/05/20 02:50 69 18 40 02/05/20 00:57 144/70 02/05/20 00:26 70 02/05/20 00:00 Mechanical Ventilator Mechanical Ventilator 02/05/20 00:00 98.2 74 20 144/63 (90) 95 02/05/20 00:00 40 02/04/20 22:54 Mechanical Ventilator 100 02/04/20 22:37 68 14 40 ROS: unchanged for 01/17/20 HEENT: Mechanically Ventilated, Thick Trach secretions RHYTHM: Afib LUNGS: bilateral rhonchi, trach site clean CARDIAC: normal S1 and S2, irregularly irregular, other - no rub ABDOMEN: normal bowel sounds, non tender, soft, G-Tube intact, other - left groin- no bleeding at old cath site EXTREMITIES: normal inspection, trace edema Laboratory Tests Test 02/05/20 03:00 White Blood Count 5.5 K/UL (4.8-10.8) Red Blood Count 2.82 M/UL (4.20-5.40) L Hemoglobin 8.0 G/DL (12.0-16.0) L Hematocrit 23.1 % (37.0-47.0) L Mean Corpuscular Volume 82 FL (80-99) Mean Corpuscular Hemoglobin 28.4 PG (27.0-31.0) Mean Corpuscular Hemoglobin Concent 34.7 G/DL (32.0-36.0) Red Cell Distribution Width 15.0 % (11.6-14.8) H Platelet Count 474 K/UL (150-450) H Mean Platelet Volume 6.1 FL (6.5-10.1) L Neutrophils (%) (Auto) 68.4 % (45.0-75.0) Lymphocytes (%) (Auto) 23.5 % (20.0-45.0) Monocytes (%) (Auto) 7.2 % (1.0-10.0) Eosinophils (%) (Auto) 0.0 % (0.0-3.0) Basophils (%) (Auto) 0.9 % (0.0-2.0) Sodium Level 136 MMOL/L (136-145) Potassium Level 3.5 MMOL/L (3.5-5.1) Chloride Level 97 MMOL/L (98-107) L Carbon Dioxide Level 30 MMOL/L (21-32) Anion Gap 9 mmol/L (5-15) Blood Urea Nitrogen 69 mg/dL (7-18) H Creatinine 3.2 MG/DL (0.55-1.30) H Estimat Glomerular Filtration Rate 15.5 mL/min (>60) Glucose Level 87 MG/DL (74-106) Calcium Level 8.5 MG/DL (8.5-10.1) Assessment/Plan Assessment/Plan Chronic respiratory failure with trach Severe sepsis PAFib with rapid ventric response. Ischemic cardiomyopathy - hx CABG and s/p NSTEMI in Dec 2019. Conduction system disease of the heart Hx of permanent pacemaker explant Acute on chronic systolic and diastolic CHF Pleural effusion Anemia Hypertension/HHD with labile BP. ESRD Avoid beta flori therapy based on risk of bradycardia. Anti-failure and anti-anginal regimen with titration Vent support Abx per ID Continuous cardiac monitoring Anti-HTN regimen being titrated as needed. Transfuse for further drops in hemoglobin Tunneled dialysis cath placement Deni Willams MD Feb 05, 2020 22:10
[2020-02-06] VITALS (16 sets, daily range): BP systolic 116–170; BP diastolic 54–92
[2020-02-06] MEDS: HydrALAZINE 25mg tab GT SCH ×4 (00:30→17:57)
[2020-02-06] MEDS: Metoclopramide 10mg/2ml Inj IVP SCH ×4 (00:30→17:58)
--- NOTE | 2020-02-06 01:00 | NUR ---
NURSE NOTES: Turned and repositioned. Tolerating well with current vent settings. o2 sat 98-99%. Suctioned with large amount of white thick secretions with trach and oral. oral care done.
[2020-02-06] MEDS: HYDROcodone/Acetamin 5/325 tab GT PRN ×4 (01:04→21:16)
--- NOTE | 2020-02-06 02:38 | NUR ---
NURSE NOTES: Sponge bath given with using CHG.No BM noted. Turned and repositioned .Patient asleep.
[2020-02-06 06:10] LABS: PHOSPHORUS 4.3 MG/DL (2.5-4.9)
[2020-02-06 06:20] LABS: ALBUMIN 1.9 G/DL (3.4-5.0); ALBUMIN/GLOBULIN RATIO 0.4 (1.0-2.7); BILIRUBIN,TOTAL 0.4 MG/DL (0.2-1.0); CALCIUM 8.7 MG/DL (8.5-10.1); CREATININE 3.6 MG/DL (0.55-1.30); POTASSIUM 3.6 MMOL/L (3.5-5.1)
--- NOTE | 2020-02-06 06:36 | Hematology/Onc Progress Note ---
Assessment/Plan Assessment/Plan IM note Covering for Dr. Dong Assessment and Recs # Leukocytosis, now with pna v other process --> Cxr: : Large left pleural effusion, Bilateral interstitial and airspace infiltrates versus edema --> wbc 16-->26->30-->10->8 --> ABX zosyn-->angelo/vanc-->angelo/tobra->off --> ID recs are noted --> smear has been reviewed # Anemia of chronic disease due to underlying chronic medical issues, multifactorial --> Anemia workup has been reviewed, cw acd --> No evidence of hemolysis is noted, peripheral smear has been reviewed. --> Hgb goal >7. Transfuse prn. --> Epogen required, to continue --> Medications have been reviewed --> low threshold for gi evaluation in case has occult + --> hgb 7.1-->7.8-->>>5.9-->7.3-->7-->7.2-->7.9-->8.6-->8.2-->8.5 --> 1 unit prbc10/17, 2 units 12 --> gi eval as needed # Coagulopathy with inr 1.5 --> consider vit k/ffp as needed preprocedure --> labs noted # JAVIER initially >2 --> on ivfs --> per renal # Elevated d-dimer --> venous duplex ordered-->reviewed, is neg --> in prior neg # Dysphagia s/p peg --> as per gi # Thoracic aortic dissection --> s/p repair early 2017 # Chronic Resp failure -> s/p trach/vent # Psychiatric history on ativan/haldol # [place] resident # Dvt ppx --> scds The timing of this note does not necessarily reflect the time of the patient was seen. Greatly appreciate consultation. Subjective Allergies: Coded Allergies: No Known Allergies (Unverified , 10/10/17) All Systems: reviewed and negative except above Subjective 01/16 left femoral arden in place, on vent, icu, hgb better 01/18 labs are noted, wbc 30, hgb 7, may require prbc today 01/27 is off amio, on epoogen, hgb reviewed, 7.2, transfuse if unstable 01/28 pain meds given, some foaming around mouth, no bleeding 01/29 hd was done yesterday, no bleedig, cbc pending, asa given 01/30 labs are noted, no bleeding, labs reviewed, pending meds 02/01 labs are noted, no bleeding, meds reviewed, no f/c, trach/vent 02/02 labs noted, no night sweats, t/v, labs ordered for am 02/03 labs reviewed, meds noted, no bleeding, hgb 7.9 02/04 meds noted, no bleeding, labs reviewed, hgb 8 02/05 labs are pending, some secretions are noted, no bleeding Objective Objective Current Medications Medications (Trade) Dose Ordered Sig/Penny Route PRN Reason Start Time Stop Time Status Last Admin Dose Admin Acetaminophen (Tylenol) 500 mg Q6H PRN GT FEVER 01/21/20 20:45 02/20/20 20:44 01/29/20 02:01 Acetaminophen/ Hydrocodone Bitart ([place] 5/325) 1 tab Q6H PRN GT Moderate Breakthru Pain (5-7) 01/31/20 07:45 02/07/20 07:44 02/06/20 06:17 Amantadine HCl (Symmetrel) 100 mg TWICE A DAY GT 01/31/20 18:00 03/01/20 17:59 02/05/20 17:57 Amlodipine Besylate (Norvasc) 5 mg BID GT 01/22/20 18:00 02/20/20 15:44 02/05/20 17:59 Aspirin (ASA) 81 mg DAILY GT 01/20/20 09:00 03/05/20 08:59 02/05/20 09:32 Atorvastatin Calcium (Lipitor) 10 mg BEDTIME GT 01/17/20 21:00 04/16/20 20:59 02/05/20 21:04 Chlorhexidine Gluconate (Ling-Hex 2%) 1 applic DAILY@1999 TOPIC 01/17/20 20:00 04/16/20 19:59 02/05/20 21:04 Dextrose (Dextrose 50%) 25 ml Q30M PRN IV Hypoglycemia 01/15/20 22:15 04/14/20 22:14 Dextrose (Dextrose 50%) 50 ml Q30M PRN IV Hypoglycemia 01/15/20 22:15 04/14/20 22:14 01/22/20 17:54 Docusate Sodium (Colace) 200 mg BIDPRN PRN GT Constipation 01/31/20 07:45 03/01/20 07:44 02/04/20 11:21 Epoetin Gelacio (Epoetin Gelacio(ESRD on dialysis)) 10,000 unit MON-MON-MON SUBQ 01/27/20 21:00 04/26/20 20:59 02/05/20 21:05 Hydralazine HCl (Apresoline) 25 mg Q6HR GT 01/26/20 18:15 04/25/20 18:14 02/06/20 06:16 Isosorbide Dinitrate (Isordil) 20 mg TID GT 01/25/20 09:00 02/19/20 08:59 02/05/20 17:58 Lactulose (Cephulac) 20 gm THREE TIMES A DAY GT 02/04/20 13:00 03/05/20 12:59 02/05/20 17:59 Lansoprazole (Prevacid) 30 mg BID GT 01/19/20 18:00 02/18/20 17:59 02/05/20 17:57 Metoclopramide HCl (Reglan) 5 mg Q6HR IVP 02/05/20 07:00 03/06/20 06:59 02/06/20 06:16 Metoprolol Tartrate (Lopressor) 25 mg Q12HR ORAL 01/27/20 21:00 04/22/20 20:59 02/05/20 21:04 Polyethylene Glycol (Miralax) 17 gm BEDTIME GT 02/04/20 21:00 03/05/20 20:59 02/05/20 21:05 Sodium Hypochlorite (Dakin's Quarter Strength) 1 applic DAILY TOPIC 01/30/20 09:00 02/29/20 08:59 02/05/20 09:00 Zinc Oxide (Zinc Oxide) 1 applic TIDPRN PRN TOPIC diogenes GT 01/16/20 13:15 04/15/20 13:14 01/16/20 14:55 Last 24 Hour Vital Signs Date Time Temp Pulse Resp B/P (MAP) Pulse Ox O2 Delivery O2 Flow Rate FiO2 02/06/20 06:16 121/61 02/06/20 04:00 78 02/06/20 04:00 40 02/06/20 04:00 Mechanical Ventilator Mechanical Ventilator 02/06/20 04:00 98.2 62 14 121/61 (81) 97 02/06/20 03:12 67 19 40 02/06/20 00:30 142/68 02/06/20 00:00 64 02/06/20 00:00 40 02/06/20 00:00 Mechanical Ventilator Mechanical Ventilator 02/06/20 00:00 98.6 72 22 142/68 (92) 96 02/05/20 22:56 64 17 40 02/05/20 21:04 72 128/73 02/05/20 20:00 Mechanical Ventilator Mechanical Ventilator 02/05/20 20:00 40 02/05/20 20:00 98.2 72 24 128/73 (91) 98 02/05/20 19:03 77 02/05/20 18:12 74 22 40 02/05/20 17:59 65 142/74 02/05/20 17:58 142/74 02/05/20 17:58 142/74 02/05/20 16:00 Mechanical Ventilator Mechanical Ventilator 02/05/20 16:00 69 02/05/20 16:00 40 02/05/20 16:00 97.8 65 16 142/74 (96) 99 02/05/20 15:00 69 25 40 02/05/20 12:10 138/80 02/05/20 12:10 138/80 02/05/20 12:04 62 20 40 02/05/20 12:00 98.3 70 18 140/69 (92) 99 02/05/20 12:00 62 02/05/20 12:00 Mechanical Ventilator Mechanical Ventilator 02/05/20 12:00 40 02/05/20 09:31 67 145/82 02/05/20 09:31 145/82 02/05/20 09:31 67 145/82 02/05/20 08:00 Mechanical Ventilator Mechanical Ventilator 02/05/20 08:00 67 02/05/20 08:00 40 02/05/20 08:00 97.5 67 20 145/82 (103) 98 02/05/20 07:29 68 14 40 02/05/20 05:11 135/65 02/05/20 04:00 98.5 64 17 135/78 (97) 97 02/05/20 04:00 Mechanical Ventilator Mechanical Ventilator 02/05/20 04:00 40 02/05/20 03:44 65 02/05/20 02:50 69 18 40 02/05/20 00:57 144/70 02/05/20 00:26 70 02/05/20 00:00 Mechanical Ventilator Mechanical Ventilator 02/05/20 00:00 98.2 74 20 144/63 (90) 95 02/05/20 00:00 40 02/04/20 22:54 Mechanical Ventilator 100 02/04/20 22:37 68 14 40 02/04/20 20:25 74 145/67 02/04/20 20:00 97.9 74 17 145/67 (93) 100 02/04/20 20:00 Mechanical Ventilator Mechanical Ventilator 02/04/20 20:00 40 02/04/20 19:50 71 02/04/20 19:16 70 21 40 02/04/20 17:16 142/69 02/04/20 17:16 68 142/69 02/04/20 17:15 142/69 02/04/20 16:00 40 02/04/20 16:00 Mechanical Ventilator Mechanical Ventilator 02/04/20 16:00 65 02/04/20 16:00 97.9 68 16 142/69 (93) 100 02/04/20 15:35 72 18 40 02/04/20 14:36 98.1 02/04/20 12:32 138/67 02/04/20 12:00 Mechanical Ventilator Mechanical Ventilator 02/04/20 12:00 98.1 68 18 138/67 (90) 99 02/04/20 12:00 62 02/04/20 12:00 60 02/04/20 11:05 70 26 60 02/04/20 08:10 71 135/56 02/04/20 08:10 71 135/56 02/04/20 08:09 135/56 02/04/20 08:00 60 02/04/20 08:00 Mechanical Ventilator Mechanical Ventilator 02/04/20 08:00 98.2 71 16 135/56 (82) 99 02/04/20 08:00 60 02/04/20 07:20 67 26 60 Intake and Output 02/05/20 02/06/20 19:00 07:00 Intake Total 780 ml 615 ml Balance 780 ml 615 ml Free Water 300 ml 300 ml Tube Feeding 480 ml 315 ml # Bowel Movements 6 Labs Test 02/03/20 13:45 02/03/20 16:58 02/04/20 00:25 02/04/20 03:05 POC Whole Blood Glucose 89 MG/DL (74-106) 99 MG/DL (74-106) 97 MG/DL (74-106) White Blood Count 5.9 K/UL (4.8-10.8) Red Blood Count 2.72 M/UL (4.20-5.40) Hemoglobin 7.9 G/DL (12.0-16.0) Hematocrit 22.2 % (37.0-47.0) Mean Corpuscular Volume 82 FL (80-99) Mean Corpuscular Hemoglobin 28.9 PG (27.0-31.0) Mean Corpuscular Hemoglobin Concent 35.4 G/DL (32.0-36.0) Red Cell Distribution Width 14.9 % (11.6-14.8) Platelet Count 444 K/UL (150-450) Mean Platelet Volume 6.2 FL (6.5-10.1) Neutrophils (%) (Auto) % (45.0-75.0) Lymphocytes (%) (Auto) % (20.0-45.0) Monocytes (%) (Auto) % (1.0-10.0) Eosinophils (%) (Auto) % (0.0-3.0) Basophils (%) (Auto) % (0.0-2.0) Test 02/04/20 05:07 02/04/20 13:29 02/04/20 18:21 02/05/20 03:00 POC Whole Blood Glucose 111 MG/DL (74-106) 72 MG/DL (74-106) White Blood Count 5.5 K/UL (4.8-10.8) Red Blood Count 2.82 M/UL (4.20-5.40) Hemoglobin 8.0 G/DL (12.0-16.0) Hematocrit 23.1 % (37.0-47.0) Mean Corpuscular Volume 82 FL (80-99) Mean Corpuscular Hemoglobin 28.4 PG (27.0-31.0) Mean Corpuscular Hemoglobin Concent 34.7 G/DL (32.0-36.0) Red Cell Distribution Width 15.0 % (11.6-14.8) Platelet Count 474 K/UL (150-450) Mean Platelet Volume 6.1 FL (6.5-10.1) Neutrophils (%) (Auto) 68.4 % (45.0-75.0) Lymphocytes (%) (Auto) 23.5 % (20.0-45.0) Monocytes (%) (Auto) 7.2 % (1.0-10.0) Eosinophils (%) (Auto) 0.0 % (0.0-3.0) Basophils (%) (Auto) 0.9 % (0.0-2.0) Sodium Level 136 MMOL/L (136-145) Potassium Level 3.5 MMOL/L (3.5-5.1) Chloride Level 97 MMOL/L (98-107) Carbon Dioxide Level 30 MMOL/L (21-32) Anion Gap 9 mmol/L (5-15) Blood Urea Nitrogen 69 mg/dL (7-18) Creatinine 3.2 MG/DL (0.55-1.30) Estimat Glomerular Filtration Rate 15.5 mL/min (>60) Glucose Level 87 MG/DL (74-106) Calcium Level 8.5 MG/DL (8.5-10.1) Test 02/05/20 23:23 02/06/20 03:00 02/06/20 06:11 POC Whole Blood Glucose 113 MG/DL (74-106) Phosphorus Level 4.3 MG/DL (2.5-4.9) Magnesium Level 2.8 MG/DL (1.8-2.4) Height (Feet): 5 Height (Inches): 6.00 Weight (Pounds): 150 Objective Physical Exam: Vitals: reviewed General: NAD HEENT: nc, at Neck: supple ++trach/vent Chest: clear breath sounds bilaterally Cardiovascular: RRR, no s3, s4 Abdomen: soft, nontender, nd +gtube Extremities: no cce, normal range of motion Neuro: alert Evan Muhammad MD Feb 06, 2020 06:36
[2020-02-06 07:01] LABS: HEMATOCRIT 24.3 % (37.0-47.0); HEMOGLOBIN 7.7 G/DL (12.0-16.0); MEAN CORPUSCULAR VOLUME 89 FL (80-99); PLATELET COUNT 491 K/UL (150-450); RED BLOOD COUNT 2.73 M/UL (4.20-5.40); RED CELL DISTRIBUTION WIDTH 14.1 % (11.6-14.8); WHITE BLOOD COUNT 6.7 K/UL (4.8-10.8)
--- NOTE | 2020-02-06 07:30 | NUR ---
NURSE NOTES: Report received from Zelda ZIMMERMAN. Patient is observed in bed, awake, alert, but unable to verbalized needs. Respiratory even and unlabored. No s/s of acute discomfort per FLACC scale. IV sites are asymptomatic, patent, and intact. GTF is running at a prescribed rate. HOB is elevated. Bed is in lowest position with side rails up x2 and brakes are engaged. Will continue frequent monitoring.
--- NOTE | 2020-02-06 07:36 | NUR ---
NURSE HAND-OFF REPORT: Important Events on Shift: Tunneled cath placement Patient Status: stable Diet: GTF with Nepro at 35cc/hr Pending Orders: N Pending Results/Labs:N Pending MD notification:N Latest Vital Signs: Temperature 98.2 , Pulse 78 , B/P 121 /61 , Respiratory Rate 14 , O2 SAT 97 , Mechanical Ventilator, O2 Flow Rate . Vital Sign Comment:stable EKG Rhythm: Sinus Rhythm Rhythm change?: N MD Notified?: Gabriel -Dr. Екатерина HATFIELD Response: Order Received& Read Back Latest Chavarria Fall Score: 50 Fall Risk: High Risk Safety Measures: Call light Within Reach, Bed Alarm Zone 1, Side Rails Side Rails x2, Bed position Low and Locked. Fall Precautions: Yellow Socks Report given to Mora ZIMMERMAN.
--- NOTE | 2020-02-06 07:52 | NUR ---
NURSE NOTES: Notified Dr. Muhammad regarding Hgb: 7.7 this AM, awaiting call back.
--- NOTE | 2020-02-06 07:59 | NUR ---
NURSE NOTES: No new orders noted from Dr. Muhammad regarding hemoglobin 7.7.
[2020-02-06] MEDS: Amantadine 100mg cap GT SCH ×2 (08:54→17:56)
[2020-02-06] MEDS: Aspirin Baby 81mg GT SCH (08:54)
[2020-02-06] MEDS: Lactulose 20gm/30ml UDC GT SCH ×3 (08:54→17:56)
[2020-02-06] MEDS: Dakin's 0.125% Soln (Quarter Strength) 16oz TOPIC SCH (08:56)
--- NOTE | 2020-02-06 09:36 | General Progress Note ---
Subjective ROS Limited/Unobtainable: No Allergies: Coded Allergies: No Known Allergies (Unverified , 10/10/17) Objective Last 24 Hour Vital Signs Date Time Temp Pulse Resp B/P (MAP) Pulse Ox O2 Delivery O2 Flow Rate FiO2 02/06/20 08:56 59 02/06/20 08:55 123/66 02/06/20 08:54 66 123/62 02/06/20 08:00 98.2 70 20 139/92 (108) 97 02/06/20 08:00 40 02/06/20 08:00 Mechanical Ventilator Mechanical Ventilator 02/06/20 06:16 121/61 02/06/20 04:00 78 02/06/20 04:00 40 02/06/20 04:00 Mechanical Ventilator Mechanical Ventilator 02/06/20 04:00 98.2 62 14 121/61 (81) 97 02/06/20 03:12 67 19 40 02/06/20 00:30 142/68 02/06/20 00:00 64 02/06/20 00:00 40 02/06/20 00:00 Mechanical Ventilator Mechanical Ventilator 02/06/20 00:00 98.6 72 22 142/68 (92) 96 02/05/20 22:56 64 17 40 02/05/20 21:04 72 128/73 02/05/20 20:00 Mechanical Ventilator Mechanical Ventilator 02/05/20 20:00 40 02/05/20 20:00 98.2 72 24 128/73 (91) 98 02/05/20 19:03 77 02/05/20 18:12 74 22 40 02/05/20 17:59 65 142/74 02/05/20 17:58 142/74 02/05/20 17:58 142/74 02/05/20 16:00 Mechanical Ventilator Mechanical Ventilator 02/05/20 16:00 69 02/05/20 16:00 40 02/05/20 16:00 97.8 65 16 142/74 (96) 99 02/05/20 15:00 69 25 40 02/05/20 12:10 138/80 02/05/20 12:10 138/80 02/05/20 12:04 62 20 40 02/05/20 12:00 98.3 70 18 140/69 (92) 99 02/05/20 12:00 62 02/05/20 12:00 Mechanical Ventilator Mechanical Ventilator 02/05/20 12:00 40 Intake and Output 02/05/20 02/06/20 19:00 07:00 Intake Total 780 ml 720 ml Output Total 250 ml Balance 780 ml 470 ml Free Water 300 ml 300 ml Tube Feeding 480 ml 420 ml Output Urine Total 250 ml # Bowel Movements 6 Laboratory Tests 02/05/20 23:23: POC Whole Blood Glucose 113H 02/06/20 03:00: White Blood Count 6.7, Red Blood Count 2.73L, Hemoglobin 7.7L, Hematocrit 24.3L, Mean Corpuscular Volume 89#, Mean Corpuscular Hemoglobin 28.3, Mean Corpuscular Hemoglobin Concent 31.8L, Red Cell Distribution Width 14.1, Platelet Count 491H, Mean Platelet Volume 5.9L, Neutrophils (%) (Auto) , Lymphocytes (%) (Auto) , Monocytes (%) (Auto) , Eosinophils (%) (Auto) , Basophils (%) (Auto) , Neutrophils % (Manual) [Pending], Lymphocytes % (Manual) [Pending], Platelet Estimate [Pending], Platelet Morphology [Pending], Sodium Level 137, Potassium Level 3.6, Chloride Level 99, Carbon Dioxide Level 29, Anion Gap 9, Blood Urea Nitrogen 76H, Creatinine 3.6H, Estimat Glomerular Filtration Rate 13.6, Glucose Level 74, Calcium Level 8.7, Phosphorus Level 4.3, Magnesium Level 2.8H, Total Bilirubin 0.4, Aspartate Amino Transf (AST/SGOT) 28, Alanine Aminotransferase (ALT/SGPT) 10L, Alkaline Phosphatase 155H, Total Protein 6.9, Albumin 1.9L, Globulin 5.0, Albumin/Globulin Ratio 0.4L 02/06/20 06:11: POC Whole Blood Glucose [Pending] Height (Feet): 5 Height (Inches): 6.00 Weight (Pounds): 150 General Appearance: lethargic EENT: normal ENT inspection Neck: supple Cardiovascular: normal rate Respiratory/Chest: decreased breath sounds Abdomen: normal bowel sounds, non tender, soft Extremities: non-tender Assessment/Plan Problem List: (1) Hx of CABG ICD Codes: Z95.1 - Presence of aortocoronary bypass graft SNOMED: 720485930, 947785371 (2) History of tracheostomy ICD Codes: Z98.890 - Other specified postprocedural states SNOMED: 025820692, 445855931 (3) PEG (percutaneous endoscopic gastrostomy) status ICD Codes: Z93.1 - Gastrostomy status SNOMED: 530663241, 154157927 (4) S/P aortic dissection repair ICD Codes: Z98.890 - Other specified postprocedural states SNOMED: 039567005, 942488170 (5) Renal failure ICD Codes: N19 - Unspecified kidney failure SNOMED: 75736980, 373540494 (6) Anemia ICD Codes: D64.9 - Anemia, unspecified SNOMED: 201691809 Assessment/Plan: stable H&H repeat stool ob GTF some GT leak reglan add topical Zinc oxide HD per nephrology persistent elevated lipase\ ct reviewed cbc in am Inder Mccauley MD Feb 06, 2020 09:36
[2020-02-06] MEDS ORDERED: Lidocaine 2% 20mg/ml/Epi 0.005mg/ml 20ml vial INJ PRN (09:55)
[2020-02-06] MEDS ORDERED: Heparin1,000 units/500ml Premix(Conc:2 units/ml) INJ PRN (09:56)
--- NOTE | 2020-02-06 10:58 | NUR ---
DISCHARGE PLANNING PATIENT CANNOT RETURN TO [facility] SINCE SHE IS TRACH/VENT AND NOW DIALYSIS PATIENT HAS BEEN REFERRED TO AND ACCEPTED AT [facility] SPOKE WITH NEENA FROM [facility] WHO STATED THEY WILL DO A LETTER OF AGREEMENT FOR PLACEMENT CALLED GARY AT [facility] AND PROVIDED NEENA'S PHONE NUMBER SO A CONVERSATION CAN TAKE PLACE TUNNELED CATH SCHEDULED TO TAKE PLACE TODAY NEENA @ [facility] T: [phone]
[2020-02-06] MEDS ORDERED: ceFAZolin 2gm/50ml Premix 50 ML IV SCH (11:00)
--- NOTE | 2020-02-06 12:26 | NUR ---
CASE MANAGEMENT:REVIEW 02/06/20 SI: SEPSIS. PNA. AC/CHR RENAL FAILURE(TEMPORARY HD CATH) TRACH/VENT DEPENDENT 98.2 70 20 139/92 97% ON VENT SUPPORT W/40% FIO2 H/H-7.7/24.3 BUN+76 CR+3.6 IS: IV ANCEF X1 LACTULOSE GT TID LOPRESSOR PO Q12 HYDRALAZINE GT Q6HRS ISORDIL GT TID NORVASC GT BID ASA GT QD : STEP DOWN UNIT DCP: FROM [facility] PLAN: TUNNELED CATH PLACEMENT ORDERED....WAITING TO BE PLACED SPOKE WITH NEENA FROM [employer] ~ HE WILL ASSIST WITH EVONNE FOR [employer] NEENA T: [phone]
--- NOTE | 2020-02-06 13:00 | NUR ---
NURSE NOTES: Patient is off unit for procedure.
--- NOTE | 2020-02-06 13:14 | Nephrology Progress Note ---
Assessment/Plan Problem List: (1) ARF (acute renal failure) (2) Pacemaker (3) Sepsis (4) Hyponatremia Assessment (1) JAVIER (acute kidney injury) (2) Renal failure (ARF), acute on chronic (3) Feeding by G-tube (4) Tracheostomy in place (5) Electrolyte imbalance, hyponatremia (6) Anemia, severe (7) Respiratory failure, acute and chronic (8) Elevated lipase, pancreatitis (9) Elevated troponin I (10) Sepsis Plan February 05: Labs reviewed. Last dialysis February 03. Will order dialysis tomorrow. Waiting for tunneled catheter placement. February 04: Labs reviewed. Dialyzed yesterday. With a plan for insertion of a tunneled dialysis catheter and discontinue left groin dialysis catheter afterwards. Check labs in a.m. Discussed with Dr. Dong. February 03: Labs reviewed. Due for dialysis today. Continue per consultants. February 02: Labs reviewed. Will order dialysis tomorrow. Continue per consultants. February 01: Labs reviewed. Creatinine gradually rising. Will dialyze as needed. Continue to monitor renal parameters. January 31: Last dialysis January 29. Labs reviewed. No need for dialysis today. Continue per current management. Hemodialysis as needed. Will check renal parameters and chemistries tomorrow. January 30: Patient was dialyzed yesterday. No labs drawn today. Continue to monitor renal parameters and dialyze as needed. Continue per consultants and PMD. January 29: Patient due for dialysis today. Today's can panel reviewed. Continue to monitor renal parameters and dialysis as needed. January 28: Patient last dialyzed January 26. No labs drawn today. Will order dialysis tomorrow. Check chemistry panel tomorrow. Continue per consultants. January 27: Patient was dialyzed yesterday . Labs were reviewed. Electrolytes within normal limit. Blood pressure stable. January 26: When visited the patient earlier today the patient was on dialysis. Tolerating well. Labs reviewed. Blood pressure stable. January 25: Dialysis for tomorrow. Labs reviewed. Hemoglobin remains low. Will adjust blood pressure medication. Hydralazine added to the regimen January 24: Last dialyzed January 22. Labs reviewed. Status quo. Will dialyze as needed. Low hemoglobin noted. Transfusion per PMD decision. Epogen started. \January 23: Dialyzed yesterday. Today's labs reviewed. Continue to monitor renal parameters and arrange for dialysis as needed. Continue per PMD. January 22: Seen earlier during dialysis. Labs reviewed. Medication list reviewed. Continue current management. January 21: Labs reviewed. Medication list reviewed. Next hemodialysis tomorrow. Blood pressure medication adjusted. January 20: Dialyzed yesterday. Labs reviewed. Continue per current management. Dialysis as needed. Add Norvasc to blood pressure regimen January 19: Due for dialysis today. Labs reviewed. Continue her current management. Continue to monitor renal parameters and electrolytes. January 18: Dialyzed yesterday. Labs reviewed. Renal parameters electrolytes much improved. Dialysis again tomorrow. Continue rest. January 17: Dialyzed this morning. Labs reviewed. Renal parameters and electrolyte abnormalities improved. Discussed with RN. Continue per joseluis lara. January 16: Dialyzed yesterday. Labs improved. Next dialysis tomorrow. Continue per consultants. January 15: Patient to have dialysis catheter. Emergency dialysis for correction of uremia and electrolyte imbalances Antibiotics Transfusion Continue to monitor renal parameters Per orders Discussed with RN Subjective ROS Limited/Unobtainable: Yes Objective Objective Last 24 Hour Vital Signs Date Time Temp Pulse Resp B/P (MAP) Pulse Ox O2 Delivery O2 Flow Rate FiO2 02/06/20 12:35 125/61 02/06/20 12:34 125/61 02/06/20 12:00 Mechanical Ventilator Mechanical Ventilator 02/06/20 08:56 59 02/06/20 08:55 123/66 02/06/20 08:54 66 123/62 02/06/20 08:09 59 02/06/20 08:00 98.2 70 20 139/92 (108) 97 02/06/20 08:00 40 02/06/20 08:00 Mechanical Ventilator Mechanical Ventilator 02/06/20 06:16 121/61 02/06/20 04:00 78 02/06/20 04:00 40 02/06/20 04:00 Mechanical Ventilator Mechanical Ventilator 02/06/20 04:00 98.2 62 14 121/61 (81) 97 02/06/20 03:12 67 19 40 02/06/20 00:30 142/68 02/06/20 00:00 64 02/06/20 00:00 40 02/06/20 00:00 Mechanical Ventilator Mechanical Ventilator 02/06/20 00:00 98.6 72 22 142/68 (92) 96 02/05/20 22:56 64 17 40 12/23/20 21:04 72 128/73 02/05/20 20:00 Mechanical Ventilator Mechanical Ventilator 02/05/20 20:00 40 02/05/20 20:00 98.2 72 24 128/73 (91) 98 02/05/20 19:03 77 02/05/20 18:12 74 22 40 02/05/20 17:59 65 142/74 02/05/20 17:58 142/74 02/05/20 17:58 142/74 02/05/20 16:00 Mechanical Ventilator Mechanical Ventilator 02/05/20 16:00 69 02/05/20 16:00 40 02/05/20 16:00 97.8 65 16 142/74 (96) 99 02/05/20 15:00 69 25 40 Intake and Output 02/05/20 02/06/20 19:00 07:00 Intake Total 780 ml 720 ml Output Total 250 ml Balance 780 ml 470 ml Free Water 300 ml 300 ml Tube Feeding 480 ml 420 ml Output Urine Total 250 ml # Bowel Movements 6 Laboratory Tests 02/05/20 23:23: POC Whole Blood Glucose 113H 02/06/20 03:00: White Blood Count 6.7, Red Blood Count 2.73L, Hemoglobin 7.7L, Hematocrit 24.3L, Mean Corpuscular Volume 89#, Mean Corpuscular Hemoglobin 28.3, Mean Corpuscular Hemoglobin Concent 31.8L, Red Cell Distribution Width 14.1, Platelet Count 491H, Mean Platelet Volume 5.9L, Neutrophils (%) (Auto) , Lymphocytes (%) (Auto) , Monocytes (%) (Auto) , Eosinophils (%) (Auto) , Basophils (%) (Auto) , Differential Total Cells Counted 100, Neutrophils % (Manual) 58, Lymphocytes % (Manual) 38, Monocytes % (Manual) 3, Eosinophils % (Manual) 0, Basophils % (Manual) 0, Band Neutrophils 1, Platelet Estimate IncreasedH, Platelet Morphology Normal, Hypochromasia 2+, Anisocytosis 2+, Sodium Level 137, Potassium Level 3.6, Chloride Level 99, Carbon Dioxide Level 29, Anion Gap 9, Blood Urea Nitrogen 76H, Creatinine 3.6H, Estimat Glomerular Filtration Rate 13.6, Glucose Level 74, Calcium Level 8.7, Phosphorus Level 4.3, Magnesium Level 2.8H, Total Bilirubin 0.4, Aspartate Amino Transf (AST/SGOT) 28, Alanine Aminotransferase (ALT/SGPT) 10L, Alkaline Phosphatase 155H, Total Protein 6.9, Albumin 1.9L, Globulin 5.0, Albumin/Globulin Ratio 0.4L 02/06/20 06:11: POC Whole Blood Glucose [Pending] Height (Feet): 5 Height (Inches): 6.00 Weight (Pounds): 150 General Appearance: no apparent distress EENT: other - Trach to vent Cardiovascular: normal rate Respiratory/Chest: decreased breath sounds Abdomen: soft Johnny Houston MD Feb 06, 2020 13:14
--- NOTE | 2020-02-06 14:00 | Pulmonology Progress Note ---
Subjective ROS Limited/Unobtainable: Yes Interval Events: None new Constitutional: Reports: no symptoms HEENT: Repors: no symptoms Respiratory: Reports: no symptoms Cardiovascular: Reports: no symptoms Gastrointestinal/Abdominal: Reports: no symptoms Allergies: Coded Allergies: No Known Allergies (Unverified , 10/10/17) All Systems: reviewed and negative except above Objective Last 24 Hour Vital Signs Date Time Temp Pulse Resp B/P (MAP) Pulse Ox O2 Delivery O2 Flow Rate FiO2 02/06/20 13:48 93 25 168/77 (107) 97 02/06/20 13:34 95 25 02/06/20 12:35 125/61 02/06/20 12:34 125/61 02/06/20 12:00 Mechanical Ventilator Mechanical Ventilator 02/06/20 12:00 40 02/06/20 08:56 59 02/06/20 08:55 123/66 02/06/20 08:54 66 123/62 02/06/20 08:09 59 02/06/20 08:00 98.2 70 20 139/92 (108) 97 02/06/20 08:00 40 02/06/20 08:00 Mechanical Ventilator Mechanical Ventilator 02/06/20 06:16 121/61 02/06/20 04:00 78 02/06/20 04:00 40 02/06/20 04:00 Mechanical Ventilator Mechanical Ventilator 02/06/20 04:00 98.2 62 14 121/61 (81) 97 02/06/20 03:12 67 19 40 02/06/20 00:30 142/68 02/06/20 00:00 64 02/06/20 00:00 40 02/06/20 00:00 Mechanical Ventilator Mechanical Ventilator 02/06/20 00:00 98.6 72 22 142/68 (92) 96 02/05/20 22:56 64 17 40 02/05/20 21:04 72 128/73 02/05/20 20:00 Mechanical Ventilator Mechanical Ventilator 02/05/20 20:00 40 02/05/20 20:00 98.2 72 24 128/73 (91) 98 02/05/20 19:03 77 02/05/20 18:12 74 22 40 02/05/20 17:59 65 142/74 02/05/20 17:58 142/74 02/05/20 17:58 142/74 02/05/20 16:00 Mechanical Ventilator Mechanical Ventilator 02/05/20 16:00 69 02/05/20 16:00 40 02/05/20 16:00 97.8 65 16 142/74 (96) 99 02/05/20 15:00 69 25 40 Intake and Output 02/05/20 02/06/20 19:00 07:00 Intake Total 780 ml 720 ml Output Total 250 ml Balance 780 ml 470 ml Free Water 300 ml 300 ml Tube Feeding 480 ml 420 ml Output Urine Total 250 ml # Bowel Movements 6 General Appearance: no acute distress HEENT: normocephalic, other - trach Respiratory: chest wall non-tender, other - coarse lung sounds Cardiovascular: normal rate, regular rhythm Abdomen: soft, non tender Genitourinary: other - Norman Extremities: other - trace edema Laboratory Tests 02/05/20 23:23: POC Whole Blood Glucose 113H 02/06/20 03:00: White Blood Count 6.7, Red Blood Count 2.73L, Hemoglobin 7.7L, Hematocrit 24.3L, Mean Corpuscular Volume 89#, Mean Corpuscular Hemoglobin 28.3, Mean Corpuscular Hemoglobin Concent 31.8L, Red Cell Distribution Width 14.1, Platelet Count 491H, Mean Platelet Volume 5.9L, Neutrophils (%) (Auto) , Lymphocytes (%) (Auto) , Monocytes (%) (Auto) , Eosinophils (%) (Auto) , Basophils (%) (Auto) , Differential Total Cells Counted 100, Neutrophils % (Manual) 58, Lymphocytes % (Manual) 38, Monocytes % (Manual) 3, Eosinophils % (Manual) 0, Basophils % (Manual) 0, Band Neutrophils 1, Platelet Estimate IncreasedH, Platelet M orphology Normal, Hypochromasia 2+, Anisocytosis 2+, Sodium Level 137, Potassium Level 3.6, Chloride Level 99, Carbon Dioxide Level 29, Anion Gap 9, Blood Urea Nitrogen 76H, Creatinine 3.6H, Estimat Glomerular Filtration Rate 13.6, Glucose Level 74, Calcium Level 8.7, Phosphorus Level 4.3, Magnesium Level 2.8H, Total Bilirubin 0.4, Aspartate Amino Transf (AST/SGOT) 28, Alanine Aminotransferase (ALT/SGPT) 10L, Alkaline Phosphatase 155H, Total Protein 6.9, Albumin 1.9L, Globulin 5.0, Albumin/Globulin Ratio 0.4L 02/06/20 06:11: POC Whole Blood Glucose [Pending] Current Medications Medications (Trade) Dose Ordered Sig/Penny Route PRN Reason Start Time Stop Time Status Last Admin Dose Admin Acetaminophen (Tylenol) 500 mg Q6H PRN GT FEVER 01/21/20 20:45 02/20/20 20:44 01/29/20 02:01 Acetaminophen/ Hydrocodone Bitart (Jarrell 5/325) 1 tab Q6H PRN GT Moderate Breakthru Pain (5-7) 01/31/20 07:45 02/07/20 07:44 02/06/20 06:17 Amantadine HCl (Symmetrel) 100 mg TWICE A DAY GT 01/31/20 18:00 03/01/20 17:59 02/06/20 08:54 Amlodipine Besylate (Norvasc) 5 mg BID GT 01/22/20 18:00 02/20/20 15:44 02/06/20 08:54 Aspirin (ASA) 81 mg DAILY GT 01/20/20 09:00 03/05/20 08:59 02/06/20 08:54 Atorvastatin Calcium (Lipitor) 10 mg BEDTIME GT 01/17/20 21:00 04/16/20 20:59 02/05/20 21:04 Chlorhexidine Gluconate (Ling-Hex 2%) 1 applic DAILY@2000 TOPIC 01/17/20 20:00 04/16/20 19:59 02/05/20 21:04 Dextrose (Dextrose 50%) 25 ml Q30M PRN IV Hypoglycemia 01/15/20 22:15 04/14/20 22:14 Dextrose (Dextrose 50%) 50 ml Q30M PRN IV Hypoglycemia 01/15/20 22:15 04/14/20 22:14 01/22/20 17:54 Docusate Sodium (Colace) 200 mg BIDPRN PRN GT Constipation 01/31/20 07:45 03/01/20 07:44 02/04/20 11:21 Epoetin Gelacio (Epoetin Gelacio(ESRD on dialysis)) 10,000 unit MON-MON-MON SUBQ 01/27/20 21:00 04/26/20 20:59 02/05/20 21:05 Heparin Sodium/ Sodium Chloride (Heparin 1000 units/500ml Premix) 1,000 unit ONCE PRN INJ PROCEDURE 02/06/20 09:56 02/06/20 23:59 Hydralazine HCl (Apresoline) 25 mg Q6HR GT 01/26/20 18:15 04/25/20 18:14 02/06/20 12:35 Isosorbide Dinitrate (Isordil) 20 mg TID GT 01/25/20 09:00 02/19/20 08:59 02/06/20 12:34 Lactulose (Cephulac) 20 gm THREE TIMES A DAY GT 02/04/20 13:00 03/05/20 12:59 02/06/20 12:34 Lansoprazole (Prevacid) 30 mg BID GT 01/19/20 18:00 02/18/20 17:59 02/06/20 08:55 Lidocaine/ Epinephrine (Lidocaine 2%/ Epi 20ml) 40 ml ONCE PRN INJ PROCEDURE 02/06/20 09:55 02/06/20 23:59 Metoclopramide HCl (Reglan) 5 mg Q6HR IVP 02/05/20 07:00 03/06/20 06:59 02/06/20 12:35 Metoprolol Tartrate (Lopressor) 25 mg Q12HR ORAL 01/27/20 21:00 04/22/20 20:59 02/05/20 21:04 Polyethylene Glycol (Miralax) 17 gm BEDTIME GT 02/04/20 21:00 03/05/20 20:59 02/05/20 21:05 Sodium Hypochlorite (Dakin's Quarter Strength) 1 applic DAILY TOPIC 01/30/20 09:00 02/29/20 08:59 02/06/20 08:56 Zinc Oxide (Zinc Oxide) 1 applic TIDPRN PRN TOPIC diogenes GT 01/16/20 13:15 04/15/20 13:14 01/16/20 14:55 Assessment/Plan Assessment/Plan Assessment/Plan 1. Large left effusion. - S/p thoracentesis; CXR better - pleural fluid pathology report: negative for malignant cell 2. Chronic respiratory failure. - Continue trach care - Cont AC mode - Currently saturating at 97% 3. Sepsis; improving 4. Anemia - improving - s/p transfusion - s/p Epogen - repeat stool OB pending per Dr. Mccauley s/p HD on broad-spectrum antibiotics. Pulmonary hygiene. DVT and GI prophylaxes. Dc planning in place FiO2 increased overnight to 60%; now decreased to 50%; will wean further Elijah Hickman MD, MD Feb 06, 2020 14:00
--- NOTE | 2020-02-06 14:05 | Surgery Progress Note ---
Surgery Progress Note Subjective Procedure Performed Left femoral temporary hemodialysis catheter insertion Symptoms: improved, tolerating diet, passing flatus Objective Last 24 Hour Vital Signs Date Time Temp Pulse Resp B/P (MAP) Pulse Ox O2 Delivery O2 Flow Rate FiO2 02/06/20 13:48 93 25 168/77 (107) 97 02/06/20 13:34 95 25 02/06/20 12:35 125/61 02/06/20 12:34 125/61 02/06/20 12:00 Mechanical Ventilator Mechanical Ventilator 02/06/20 12:00 40 02/06/20 08:56 59 02/06/20 08:55 123/66 02/06/20 08:54 66 123/62 02/06/20 08:09 59 02/06/20 08:00 98.2 70 20 139/92 (108) 97 02/06/20 08:00 40 02/06/20 08:00 Mechanical Ventilator Mechanical Ventilator 02/06/20 06:16 121/61 02/06/20 04:00 78 02/06/20 04:00 40 02/06/20 04:00 Mechanical Ventilator Mechanical Ventilator 02/06/20 04:00 98.2 62 14 121/61 (81) 97 02/06/20 03:12 67 19 40 02/06/20 00:30 142/68 02/06/20 00:00 64 02/06/20 00:00 40 02/06/20 00:00 Mechanical Ventilator Mechanical Ventilator 02/06/20 00:00 98.6 72 22 142/68 (92) 96 02/05/20 22:56 64 17 40 02/05/20 21:04 72 128/73 02/05/20 20:00 Mechanical Ventilator Mechanical Ventilator 02/05/20 20:00 40 02/05/20 20:00 98.2 72 24 128/73 (91) 98 02/05/20 19:03 77 02/05/20 18:12 74 22 40 02/05/20 17:59 65 142/74 02/05/20 17:58 142/74 02/05/20 17:58 142/74 02/05/20 16:00 Mechanical Ventilator Mechanical Ventilator 02/05/20 16:00 69 02/05/20 16:00 40 02/05/20 16:00 97.8 65 16 142/74 (96) 99 02/05/20 15:00 69 25 40 I&O Intake and Output 02/05/20 02/06/20 19:00 07:00 Intake Total 780 ml 720 ml Output Total 250 ml Balance 780 ml 470 ml Free Water 300 ml 300 ml Tube Feeding 480 ml 420 ml Output Urine Total 250 ml # Bowel Movements 6 Dressing: saturated Cardiovascular: RSR Respiratory: decreased breath sounds Abdomen: soft, flat, non-tender, present bowel sounds, non-distended Extremities: edema, no tenderness, no cyanosis Laboratory Tests Test 02/05/20 23:23 02/06/20 03:00 02/06/20 06:11 POC Whole Blood Glucose 113 MG/DL (74-106) H Pending White Blood Count 6.7 K/UL (4.8-10.8) Red Blood Count 2.73 M/UL (4.20-5.40) L Hemoglobin 7.7 G/DL (12.0-16.0) L Hematocrit 24.3 % (37.0-47.0) L Mean Corpuscular Volume 89 FL (80-99) # Mean Corpuscular Hemoglobin 28.3 PG (27.0-31.0) Mean Corpuscular Hemoglobin Concent 31.8 G/DL (32.0-36.0) L Red Cell Distribution Width 14.1 % (11.6-14.8) Platelet Count 491 K/UL (150-450) H Mean Platelet Volume 5.9 FL (6.5-10.1) L Neutrophils (%) (Auto) % (45.0-75.0) Lymphocytes (%) (Auto) % (20.0-45.0) Monocytes (%) (Auto) % (1.0-10.0) Eosinophils (%) (Auto) % (0.0-3.0) Basophils (%) (Auto) % (0.0-2.0) Differential Total Cells Counted 100 Neutrophils % (Manual) 58 % (45-75) Lymphocytes % (Manual) 38 % (20-45) Monocytes % (Manual) 3 % (1-10) Eosinophils % (Manual) 0 % (0-3) Basophils % (Manual) 0 % (0-2) Band Neutrophils 1 % (0-8) Platelet Estimate Increased H Platelet Morphology Normal Hypochromasia 2+ Anisocytosis 2+ Sodium Level 137 MMOL/L (136-145) Potassium Level 3.6 MMOL/L (3.5-5.1) Chloride Level 99 MMOL/L (98-107) Carbon Dioxide Level 29 MMOL/L (21-32) Anion Gap 9 mmol/L (5-15) Blood Urea Nitrogen 76 mg/dL (7-18) H Creatinine 3.6 MG/DL (0.55-1.30) H Estimat Glomerular Filtration Rate 13.6 mL/min (>60) Glucose Level 74 MG/DL (74-106) Calcium Level 8.7 MG/DL (8.5-10.1) Phosphorus Level 4.3 MG/DL (2.5-4.9) Magnesium Level 2.8 MG/DL (1.8-2.4) H Total Bilirubin 0.4 MG/DL (0.2-1.0) Aspartate Amino Transf (AST/SGOT) 28 U/L (15-37) Alanine Aminotransferase (ALT/SGPT) 10 U/L (12-78) L Alkaline Phosphatase 155 U/L (46-116) H Total Protein 6.9 G/DL (6.4-8.2) Albumin 1.9 G/DL (3.4-5.0) L Globulin 5.0 g/dL Albumin/Globulin Ratio 0.4 (1.0-2.7) L Plan Problems: (1) Dehydration (2) Acidosis (3) Depression (4) Pleural effusion (5) Respiratory failure (6) Schizophrenia (7) Hypoxia (8) UTI (urinary tract infection) (9) Pneumonia (10) NSTEMI (non-ST elevated myocardial infarction) (11) Tracheostomy in place (12) Feeding by G-tube (13) JAVIER (acute kidney injury) (14) Acute encephalopathy (15) Sacral decubitus ulcer, stage IV (16) Chronic respiratory failure (17) Ascites (18) Bacteremia (19) Hypernatremia (20) Proteinuria (21) Electrolyte imbalance (22) ACS (acute coronary syndrome) (23) Aortic dissection, thoracic (24) Respiratory failure, acute and chronic (25) JAVIER (acute kidney injury) (26) Abrasion of lip, initial encounter (27) COPD with exacerbation (28) Elevated alkaline phosphatase level (29) Renal failure (ARF), acute on chronic (30) HCAP (healthcare-associated pneumonia) (31) GT CLOGGED (32) Elevated lipase (33) Pancreatitis (34) Elevated troponin (35) Hypokalemia (36) Hyponatremia (37) Anemia (38) Renal failure (39) ARF (acute renal failure) (40) Pacemaker (41) Sepsis Assessment & Plan: leukocytosis anemia on HD renal insufficiency wounds addressed pancreatitis cont diet as tolerating trend labs lf'ts okay pt presented on admission with Tracheostomy ,GT and Multiple Pressure Injuries. Skin assessment of skin under tracheal collar without evidence of skin breakdown. Peristomal GT site excoriated.Moderate amt of dark red sanguineous exudate. Full Thickness Sacral Pressure Injury with undermined borders (L)9 cm x (W)12cm x (D)1.8cm,Undermining clockwise8-9 by 2.2cm @1o'clock,undermining clockwise 1-4 by 1.9 @ 9'oclock Scattered necrotic tissue within wound bed. Borders are loose and necrotic with marginal erythema to outer perimeter of wound. NO elevation in skin temp noted periwound. Wound is malodorous. Small amt Brown exudate noted. Resolving Pressure Injury L Ischium(L)1.5cm x (W)1.5cm. Base of wound is 80% pink epithelial with an area that is moist and pink. NO odor or exudate noted. Bilat foot-drop noted. L Heel is boggy with non-blanchable erythema(L)4cm x (W)4cm. R heel is boggy with non-Blanchable erythema(L)5cm x (W)6cm. Tx.Plan: Cleanse sacral wound with Dakin's 0.125% annie. Loosely pack with Dakin's moistened Kerlix(Attention to undermined borders). Apply Moisture Barrier Paste periwound. Cover with Optifoam drsg. Change Daily and PRN. Apply Cavilon Skin Barrier to R and L Hels. Cover each heel with Optifoam drsg. Change every 7 days and prn. Reposition at least every 2hours or as tolerated. Off-load heels with Pillow. APM/JENNIFER MAttress overlay DAILY ESTIMATED NEEDS: Needs based on Critical care, wound, renal dysfunction 56 kg abw 28-33 kcals/kg 9124-6504 total kcals W/ HD (1.5-2.0) g protein/kg 84-112 g total protein Fluid per MD NUTRITION DIAGNOSIS: * Swallowing difficulty R/T dysphagia, respiratory status as evidenced by vent dep via trach, GT Dep. * Increase kcal and pro needs r/t wound healing, renal dysfunction as evidenced by admitted w/ stage 4 sacral wound, admitted w/ JAVIER, now on HD. CURRENT TF: Nepro @ 40ml/hr x 24 hrs ENTERAL NUTRITION RECOMMENDATIONS: Nepro @ 40ml/hr x 24 hrs + Prosource 1pkt QD to provide 960ml, 1728kcal, 78g+11g prot, 698ml free water * Maintain current TF @ goal as tolerated * Add Prosource 1pkt QD to better meet increased protein needs (additional 11g prot) * Water flush per MD/ HOB over 30 degrees ADDITIONAL RECOMMENDATIONS: * Per SNF in NOV 2019: HT=63"/ Rec daily calibrated bedscale wt * Monitor for continuity of HD, next HD 02/03 * Rec phos binders- consistently elevated phos level * Wound care: add Nephrovite x 1, ZnSO4 220mg QD x 10 days Reynaldo BID via PEG (mix w/ 2-4 oz water); vit C per nephro * Monitor TF tolerance: elev lipase, slowly trending down * Add bowel regimen: no BM x 8 days, last BM on 01/25. (42) Hyponatremia Lane Saavedra Feb 06, 2020 14:05
--- NOTE | 2020-02-06 14:31 | NUR ---
RADIOLOGY NOTE: RIJ TUNNELLED DIALYSIS CATHETER PLACEMENT BY DR. SHOLA SANABRIA AT 1356 HRS. FA
--- NOTE | 2020-02-06 14:34 | NUR ---
NURSE NOTES: Contacted [facility] nephrology for scheduled dialysis 02/07/2020, spoke with Charlie from [facility] hemodialysis.
--- NOTE | 2020-02-06 14:38 | Brief Operative Note ---
Immediate Post Operative Note Operative Note Pre-op Diagnosis: renal failure Procedure: R EJV permacath Post-op Diagnosis: same as pre-op Surgeon: Eli CANTU Anesthesia: local Specimen: none Complications: none Fluids: none Implant(s) used?: No Armen Cantu MD Feb 06, 2020 14:38
--- NOTE | 2020-02-06 16:46 | Diagnostic Imaging Report ---
Indications: Needs long-term dialysis access Technique: Patient given IV Ancef. Total sterile technique, including sterile probe cover and sterile gel, sterile gloves, hand hygiene, hat, mask,, sterile gown, large sterile drape, and preparation with 2% chlorhexidine utilized. Local anesthesia with 1% lidocaine. Ultrasound demonstrated patent compressible right internal jugular vein. Under real-time ultrasound guidance and with real-time visualization of the needle entering the vein lumen, puncture right internal jugular vein using 21-gauge micropuncture needle, passage 0.018 guidewire, exchange for 4 Bol[place]ian micropuncture introducer. The guidewire was used to measure the appropriate catheter length, and was removed. The sheath was left in place. The subcutaneous tract was then anesthetized with 1% lidocaine. A chest dermatotomy was made . The tunneling device was used to pull a 14.5 Bol[place]ian 23 cm Bard catheter through the subcutaneous tunnel to the neck dermatotomy. A guidewire was passed through the neck introducer into the inferior vena cava, and serial dilators were passed over it, followed by the introduction of a 14.5 [place] AirGuard peel-away sheath. The catheter was then introduced into the sheath, the peel-away sheath was removed. Digital radiograph documents satisfactory catheter tip position in the high right atrium, no kinking at the insertion site. Both catheter ports aspirated and flushed. Catheter was fixed to the skin. Patient tolerated procedure well without immediate complication. Total fluoroscopy time 48.4 seconds. Total dose area product 0.35643 mGym2 Total number of images-1 Comparison: None. Findings: Completion radiograph documents satisfactory position and course of the catheter, catheter tip at the high right atrium. Impression: Successful placement of right transjugular tunneled dialysis catheter, as described above
--- NOTE | 2020-02-06 16:52 | Cardiology Progress Note ---
Subjective DATE OF SERVICE: Feb 06, 2020 Scheduled for HD/UF today; tunneled cath placement pending. Remains in atrial fibrillation; rates controlled. Occasional PVC's - non- sustained BP range stable Full vent support via trach s/p left thorocentesis 01/22/20 Low hemoglobin; on epogen Objective Last 24 Hour Vital Signs Date Time Temp Pulse Resp B/P (MAP) Pulse Ox O2 Delivery O2 Flow Rate FiO2 02/06/20 16:10 70 20 126/64 (84) 97 02/06/20 15:55 70 20 120/75 (90) 99 02/06/20 15:40 75 20 116/54 (74) 99 02/06/20 15:25 68 20 125/61 (82) 98 02/06/20 14:40 96 24 142/73 (96) 98 02/06/20 14:35 94 24 153/73 (99) 96 02/06/20 14:30 97 22 148/71 (96) 97 02/06/20 14:13 101 24 95 02/06/20 14:08 103 24 170/78 (108) 98 02/06/20 14:03 102 24 160/79 (106) 98 02/06/20 13:57 92 24 02/06/20 13:48 93 25 168/77 (107) 97 02/06/20 13:34 95 25 02/06/20 12:35 125/61 02/06/20 12:34 125/61 02/06/20 12:00 98.1 69 20 135/66 (89) 97 02/06/20 12:00 Mechanical Ventilator Mechanical Ventilator 02/06/20 12:00 40 02/06/20 12:00 61 02/06/20 08:56 59 02/06/20 08:55 123/66 02/06/20 08:54 66 123/62 02/06/20 08:09 59 02/06/20 08:00 98.2 70 20 139/92 (108) 97 02/06/20 08:00 40 02/06/20 08:00 Mechanical Ventilator Mechanical Ventilator 02/06/20 06:16 121/61 02/06/20 04:00 78 02/06/20 04:00 40 02/06/20 04:00 Mechanical Ventilator Mechanical Ventilator 02/06/20 04:00 98.2 62 14 121/61 (81) 97 02/06/20 03:12 67 19 40 02/06/20 00:30 142/68 02/06/20 00:00 64 02/06/20 00:00 40 02/06/20 00:00 Mechanical Ventilator Mechanical Ventilator 02/06/20 00:00 98.6 72 22 142/68 (92) 96 02/05/20 22:56 64 17 40 02/05/20 21:04 72 128/73 02/05/20 20:00 Mechanical Ventilator Mechanical Ventilator 02/05/20 20:00 40 02/05/20 20:00 98.2 72 24 128/73 (91) 98 02/05/20 19:03 77 02/05/20 18:12 74 22 40 02/05/20 17:59 65 142/74 02/05/20 17:58 142/74 02/05/20 17:58 142/74 ROS: unchanged for 01/17/20 HEENT: Mechanically Ventilated, Thick Trach secretions RHYTHM: Afib LUNGS: bilateral rhonchi, trach site clean CARDIAC: normal S1 and S2, irregularly irregular, other - no rub ABDOMEN: normal bowel sounds, non tender, soft, G-Tube intact, other - left groin- no bleeding at old cath site EXTREMITIES: normal inspection, trace edema Laboratory Tests Test 02/05/20 23:23 02/06/20 03:00 02/06/20 06:11 POC Whole Blood Glucose 113 MG/DL (74-106) H Pending White Blood Count 6.7 K/UL (4.8-10.8) Red Blood Count 2.73 M/UL (4.20-5.40) L Hemoglobin 7.7 G/DL (12.0-16.0) L Hematocrit 24.3 % (37.0-47.0) L Mean Corpuscular Volume 89 FL (80-99) # Mean Corpuscular Hemoglobin 28.3 PG (27.0-31.0) Mean Corpuscular Hemoglobin Concent 31.8 G/DL (32.0-36.0) L Red Cell Distribution Width 14.1 % (11.6-14.8) Platelet Count 491 K/UL (150-450) H Mean Platelet Volume 5.9 FL (6.5-10.1) L Neutrophils (%) (Auto) % (45.0-75.0) Lymphocytes (%) (Auto) % (20.0-45.0) Monocytes (%) (Auto) % (1.0-10.0) Eosinophils (%) (Auto) % (0.0-3.0) Basophils (%) (Auto) % (0.0-2.0) Differential Total Cells Counted 100 Neutrophils % (Manual) 58 % (45-75) Lymphocytes % (Manual) 38 % (20-45) Monocytes % (Manual) 3 % (1-10) Eosinophils % (Manual) 0 % (0-3) Basophils % (Manual) 0 % (0-2) Band Neutrophils 1 % (0-8) Platelet Estimate Increased H Platelet Morphology Normal Hypochromasia 2+ Anisocytosis 2+ Sodium Level 137 MMOL/L (136-145) Potassium Level 3.6 MMOL/L (3.5-5.1) Chloride Level 99 MMOL/L (98-107) Carbon Dioxide Level 29 MMOL/L (21-32) Anion Gap 9 mmol/L (5-15) Blood Urea Nitrogen 76 mg/dL (7-18) H Creatinine 3.6 MG/DL (0.55-1.30) H Estimat Glomerular Filtration Rate 13.6 mL/min (>60) Glucose Level 74 MG/DL (74-106) Calcium Level 8.7 MG/DL (8.5-10.1) Phosphorus Level 4.3 MG/DL (2.5-4.9) Magnesium Level 2.8 MG/DL (1.8-2.4) H Total Bilirubin 0.4 MG/DL (0.2-1.0) Aspartate Amino Transf (AST/SGOT) 28 U/L (15-37) Alanine Aminotransferase (ALT/SGPT) 10 U/L (12-78) L Alkaline Phosphatase 155 U/L (46-116) H Total Protein 6.9 G/DL (6.4-8.2) Albumin 1.9 G/DL (3.4-5.0) L Globulin 5.0 g/dL Albumin/Globulin Ratio 0.4 (1.0-2.7) L Assessment/Plan Assessment/Plan Chronic respiratory failure with trach Severe sepsis PAFib with rapid ventric response. Ischemic cardiomyopathy - hx CABG and s/p NSTEMI in Dec 2019. Conduction system disease of the heart Hx of permanent pacemaker explant Acute on chronic systolic and diastolic CHF Pleural effusion Anemia Hypertension/HHD with labile BP. ESRD Avoid beta flori therapy based on risk of bradycardia. Anti-failure and anti-anginal regimen with titration Vent support Abx per ID Continuous cardiac monitoring Anti-HTN regimen being titrated as needed. Transfuse for further drops in hemoglobin Tunneled dialysis cath placement Deni Willams MD Feb 06, 2020 16:52
--- NOTE | 2020-02-06 18:00 | NUR ---
NURSE NOTES: Bleeding noted on right subclavian, attempted to put pressure dressing, however, multiple dressing changes required and site is still profusely bleeding. Patient is in stable condition, no s/s of acute distress noted at this time. Will frequent monitor bleeding site.
--- NOTE | 2020-02-06 18:30 | NUR ---
NURSE NOTES: Notified Dr. Muhammad regarding bleeding noted on dialysis access site. Awaiting call back.
--- NOTE | 2020-02-06 18:50 | NUR ---
NURSE NOTES: rack puller also attempted to contact PMD, awaiting call back.
--- NOTE | 2020-02-06 18:51 | NUR ---
NURSE NOTES: Also notified Dr. Saavedra regarding left femoral catheter removal. Awaiting call back.
--- NOTE | 2020-02-06 19:00 | NUR ---
NURSE NOTES: Spoke with Dr. Muhammad regarding the bleeding site, new orders noted and will carry out.
--- NOTE | 2020-02-06 19:19 | NUR ---
NURSE HAND-OFF REPORT: Important Events on Shift: bleeding on access site. endorsed plan of care to the patient. Patient Status: stable condition Diet: tube feeding Pending Orders: [] Pending Results/Labs:[] Pending MD notification:[] Latest Vital Signs: Temperature 98.0 , Pulse 69 , B/P 120 /65 , Respiratory Rate 20 , O2 SAT 97 , Mechanical Ventilator, O2 Flow Rate . Vital Sign Comment: [] EKG Rhythm: Sinus Rhythm Rhythm change?: N MD Notified?: Gabriel Willams MD Response: Order Received& Read Back Latest Chavarria Fall Score: 50 Fall Risk: High Risk Safety Measures: Call light Within Reach, Bed Alarm Zone 1, Side Rails Side Rails x2, Bed position Low and Locked. Fall Precautions: Yellow Socks Report given to Zelda ZIMMERMAN.
--- NOTE | 2020-02-06 19:25 | NUR ---
NURSE NOTES: Received patient from ERASMO Velazco. Patient awake oriented to person. Trach to vent with settings are AC 14 TV 500 Fio2 40% P5 with no acute respiratory distress. vss . Afebrile. still slightly bleeding on REJV Perma cath site. Pressure dressing changed.GTF continues with Nepro at 35cc/hr, no residual. but still noted brownish discharge on dressing.will continue to monitor.
[2020-02-06] MEDS ORDERED: Phytonadione 10 mg/mL 1ml amp SUBQ SCH (20:00)
[2020-02-06] MEDS: Miralax 17gm pkt GT SCH (21:06)
[2020-02-06] MEDS: Dyna-Hex 2% Top Sol 2oz TOPIC SCH (21:16)
[2020-02-07] VITALS: BP 144/61
--- NOTE | 2020-02-07 00:30 | NUR ---
NURSE NOTES: 1PRBC Transfusion started. vss. Afebrile.Patient awake. continue to monitor.
[2020-02-07] MEDS: HydrALAZINE 25mg tab GT SCH ×4 (00:49→18:07)
[2020-02-07] MEDS: Metoclopramide 10mg/2ml Inj IVP SCH ×4 (00:49→17:14)
--- NOTE | 2020-02-07 03:00 | NUR ---
NURSE NOTES: Transfusion completed with no s/s of reaction. vss. Afebrile.
[2020-02-07] MEDS: HYDROcodone/Acetamin 5/325 tab GT PRN (03:53)
[2020-02-07 04:00] VITALS: BP 156/71
--- NOTE | 2020-02-07 04:10 | NUR ---
NURSE NOTES: Bleeding continued on right subclavian, attempted to put pressure dressing with surgicel , however, multiple dressing changes required and site is still profusely bleeding. Patient is in stable condition, no s/s of acute distress noted at this time. Will frequent monitor bleeding site.
[2020-02-07 06:06] LABS: HEMATOCRIT 21.5 % (37.0-47.0); MEAN CORPUSCULAR VOLUME 86 FL (80-99); PLATELET COUNT 400 K/UL (150-450); RED BLOOD COUNT 2.52 M/UL (4.20-5.40); RED CELL DISTRIBUTION WIDTH 14.8 % (11.6-14.8); WHITE BLOOD COUNT 7.1 K/UL (4.8-10.8)
[2020-02-07 06:52] LABS: ALANINE AMINOTRANSFERASE 9 U/L (12-78); ALBUMIN 1.8 G/DL (3.4-5.0); ALBUMIN/GLOBULIN RATIO 0.4 (1.0-2.7); ALKALINE PHOSPHATASE 143 U/L (46-116); ANION GAP 8 mmol/L (5-15); ASPARTATE AMINO TRANSFERASE 27 U/L (15-37); BILIRUBIN,TOTAL 0.4 MG/DL (0.2-1.0); BLOOD UREA NITROGEN 81 mg/dL (7-18); CALCIUM 8.5 MG/DL (8.5-10.1); CARBON DIOXIDE 30 MMOL/L (21-32); CHLORIDE 98 MMOL/L (98-107); CREATININE 3.8 MG/DL (0.55-1.30); PHOSPHORUS 4.8 MG/DL (2.5-4.9); POTASSIUM 3.6 MMOL/L (3.5-5.1); SODIUM 136 MMOL/L (136-145)
--- NOTE | 2020-02-07 07:00 | NUR ---
NURSE HAND-OFF REPORT: Important Events on Shift:bleeding on perma cath on REJV Patient Status: STABLE Diet: GTF with Nepro at 35cc/hr Pending Orders: N Pending Results/Labs:N Pending MD notification:N Latest Vital Signs: Temperature 98.2 , Pulse 60 , B/P 156 /71 , Respiratory Rate 14 , O2 SAT 99 , Mechanical Ventilator, O2 Flow Rate . Vital Sign Comment: STABLE EKG Rhythm: Sinus Rhythm Rhythm change?: N MD Notified?: Y -Dr. Екатерина HATFIELD Response: Order Received& Read Back Latest Chavarria Fall Score: 50 Fall Risk: High Risk Safety Measures: Call light Within Reach, Bed Alarm Zone 1, Side Rails Side Rails x2, Bed position Low and Locked. Fall Precautions: Yellow Socks Report given to ERASMO KIM.
--- NOTE | 2020-02-07 07:30 | NUR ---
NURSE NOTES: Received report from ERASMO Ndiaye. Patient is resting in bed, in stable condition. No s/sx of SOB, breathing is even and unlabored, on vent settings as ordered. Patient is nonverbal, observed no presence of pain or discomfort at this time. Bed is in lowest position, brakes engaged. Call light is kept within easy reach. Will continue to monitor patient.
--- NOTE | 2020-02-07 07:45 | NUR ---
NURSE NOTES: Dr. Muhammad at nurse station, made aware of hemoglobin level today of 7.0 and permacath site still bleeding. Dr. Muhammad acknowledged and ordered transfuse 1 unit of PRBC and inform Dr. Saavedra of bleeding form permacath site. Order entered, noted, and carried out. Will continue to monitor patient.
[2020-02-07 08:00] VITALS: BP 128/70
--- NOTE | 2020-02-07 08:34 | General Progress Note ---
Subjective ROS Limited/Unobtainable: No Allergies: Coded Allergies: No Known Allergies (Unverified , 10/10/17) Objective Last 24 Hour Vital Signs Date Time Temp Pulse Resp B/P (MAP) Pulse Ox O2 Delivery O2 Flow Rate FiO2 02/07/20 07:11 60 14 40 02/07/20 06:08 156/71 02/07/20 04:00 98.2 71 14 156/71 (99) 99 02/07/20 04:00 71 02/07/20 04:00 Mechanical Ventilator Mechanical Ventilator 02/07/20 04:00 40 02/07/20 03:20 68 24 40 02/07/20 00:49 144/61 02/07/20 00:00 40 02/07/20 00:00 Mechanical Ventilator Mechanical Ventilator 02/07/20 00:00 97.7 65 14 144/61 (88) 98 02/06/20 23:49 66 02/06/20 23:01 74 21 40 02/06/20 21:07 76 148/78 02/06/20 20:00 40 02/06/20 20:00 Mechanical Ventilator Mechanical Ventilator 02/06/20 20:00 98.2 76 17 148/78 (101) 100 02/06/20 19:33 77 02/06/20 19:20 74 24 40 02/06/20 17:57 120/65 02/06/20 17:57 120/64 02/06/20 17:57 69 120/64 02/06/20 16:10 70 20 126/64 (84) 97 02/06/20 16:00 Mechanical Ventilator Mechanical Ventilator 02/06/20 16:00 76 02/06/20 16:00 40 02/06/20 15:55 70 20 120/75 (90) 99 02/06/20 15:40 75 20 116/54 (74) 99 02/06/20 15:25 68 20 125/61 (82) 98 02/06/20 15:15 68 14 40 02/06/20 14:40 96 24 142/73 (96) 98 02/06/20 14:35 94 24 153/73 (99) 96 02/06/20 14:30 97 22 148/71 (96) 97 02/06/20 14:13 101 24 95 02/06/20 14:08 103 24 170/78 (108) 98 02/06/20 14:03 102 24 160/79 (106) 98 02/06/20 13:57 92 24 02/06/20 13:48 93 25 168/77 (107) 97 02/06/20 13:34 95 25 02/06/20 12:35 125/61 02/06/20 12:34 125/61 02/06/20 12:00 98.1 69 20 135/66 (89) 97 02/06/20 12:00 Mechanical Ventilator Mechanical Ventilator 02/06/20 12:00 40 02/06/20 12:00 61 02/06/20 11:15 71 14 40 02/06/20 08:56 59 02/06/20 08:55 123/66 02/06/20 08:54 66 123/62 Intake and Output 02/06/20 02/07/20 19:00 07:00 Intake Total 350 ml 720 ml Output Total 350 ml Balance 350 ml 370 ml Free Water 300 ml Tube Feeding 350 ml 420 ml Output Urine Total 350 ml # Bowel Movements 2 Laboratory Tests 02/07/20 05:10: White Blood Count 7.1, Red Blood Count 2.52L, Hemoglobin 7.0L, Hematocrit 21.5L, Mean Corpuscular Volume 86, Mean Corpuscular Hemoglobin 27.7, Mean Corpuscular Hemoglobin Concent 32.4, Red Cell Distribution Width 14.8, Platelet Count 400, Mean Platelet Volume 5.6L, Neutrophils (%) (Auto) , Lymphocytes (%) (Auto) , Monocytes (%) (Auto) , Eosinophils (%) (Auto) , Basophils (%) (Auto) , Sodium Level 136, Potassium Level 3.6, Chloride Level 98, Carbon Dioxide Level 30, Anion Gap 8, Blood Urea Nitrogen 81H, Creatinine 3.8H, Estimat Glomerular Filtration Rate 12.8, Glucose Level 86, Uric Acid 5.2, Calcium Level 8.5, Phosphorus Level 4.8, Magnesium Level 2.9H, Total Bilirubin 0.4, Aspartate Amino Transf (AST/SGOT) 27, Alanine Aminotransferase (ALT/SGPT) 9L, Alkaline Phosphatase 143H, C-Reactive Protein, Quantitative 16.9H, Pro-B-Type Natriuretic Peptide > 42350Z, Total Protein 6.3L, Albumin 1.8L, Globulin 4.5, Albumin/Globulin Ratio 0.4L Height (Feet): 5 Height (Inches): 6.00 Weight (Pounds): 150 General Appearance: no apparent distress EENT: normal ENT inspection Neck: supple Cardiovascular: normal rate Respiratory/Chest: decreased breath sounds Abdomen: normal bowel sounds, non tender, soft Extremities: non-tender Assessment/Plan Problem List: (1) Hx of CABG ICD Codes: Z95.1 - Presence of aortocoronary bypass graft SNOMED: 169962641, 421898109 (2) History of tracheostomy ICD Codes: Z98.890 - Other specified postprocedural states SNOMED: 284563714, 257403189 (3) PEG (percutaneous endoscopic gastrostomy) status ICD Codes: Z93.1 - Gastrostomy status SNOMED: 245709075, 290670092 (4) S/P aortic dissection repair ICD Codes: Z98.890 - Other specified postprocedural states SNOMED: 662860133, 003142572 (5) Renal failure ICD Codes: N19 - Unspecified kidney failure SNOMED: 16094274, 770287955 (6) Anemia ICD Codes: D64.9 - Anemia, unspecified SNOMED: 650552315 Assessment/Plan: stable H&H repeat stool ob GTF some GT leak reglan topical Zinc oxide HD per nephrology persistent elevated lipase\ ct reviewed s/p one unit prbc cbc in Inder Lin MD Feb 07, 2020 08:34
[2020-02-07] MEDS: Amantadine 100mg cap GT SCH ×2 (08:43→17:16)
[2020-02-07] MEDS: Lactulose 20gm/30ml UDC GT SCH ×3 (08:43→17:13)
[2020-02-07] MEDS: Dakin's 0.125% Soln (Quarter Strength) 16oz TOPIC SCH (08:44)
[2020-02-07] MEDS: Aspirin Baby 81mg GT SCH (08:44)
--- NOTE | 2020-02-07 08:59 | Hematology/Onc Progress Note ---
Assessment/Plan Assessment/Plan IM note Covering for Dr. Dong Assessment and Recs # Leukocytosis, now with pna v other process --> Cxr: : Large left pleural effusion, Bilateral interstitial and airspace infiltrates versus edema --> wbc 16-->26->30-->10->8 --> ABX zosyn-->angelo/vanc-->nagelo/tobra->off --> ID recs are noted --> smear has been reviewed # Anemia of chronic disease due to underlying chronic medical issues, multifactorial --> Anemia workup has been reviewed, cw acd --> No evidence of hemolysis is noted, peripheral smear has been reviewed. --> Hgb goal >7. Transfuse prn. --> Epogen required, to continue --> Medications have been reviewed --> low threshold for gi evaluation in case has occult + --> hgb 7.1-->7.8-->>>5.9-->7.3-->7-->7.2-->7.9-->8.6-->8.2-->8.5-->7 --> 1 unit prbc10/17, 2 units 12/3. 12 --> gi eval as needed # Coagulopathy with inr 1.5 --> consider vit k/ffp as needed preprocedure --> labs noted # JAVIER initially >2 --> on ivfs --> per renal # Elevated d-dimer --> venous duplex ordered-->reviewed, is neg --> in prior neg # Dysphagia s/p peg --> as per gi # Thoracic aortic dissection --> s/p repair early 2017 # Chronic Resp failure -> s/p trach/vent # Psychiatric history on ativan/haldol # [place] resident # Dvt ppx --> scds The timing of this note does not necessarily reflect the time of the patient was seen. Greatly appreciate consultation. Subjective Constitutional: Denies: no symptoms, chills, fever, malaise, weakness, other HEENT: Denies: no symptoms, eye pain, blurred vision, tearing, double vision, ear pain, ear discharge, nose pain, nose congestion, throat pain, throat swelling, mouth pain, mouth swelling, other Cardiovascular: Denies: no symptoms, chest pain, edema, irregular heart rate, lightheadedness, palpitations, syncope, other Respiratory: Denies: no symptoms, cough, shortness of breath, SOB with excertion, SOB at rest, sputum, wheezing, other Gastrointestinal/Abdominal: Denies: no symptoms, abdomen distended, abdominal p ain, black stools, tarry stools, blood in stool, constipated, diarrhea, difficulty swallowing, nausea, poor appetite, poor fluid intake, rectal bleeding, vomiting, other Genitourinary: Denies: no symptoms, burning, discharge, frequency, flank pain, hematuria, incontinence, pain, urgency, other Neurologic/Psychiatric: Denies: no symptoms, anxiety, depressed, emotional problems, headache, numbness, paresthesia, pre-existing deficit, seizure, tingling, tremors, weakness, other Endocrine: Denies: no symptoms, excessive sweating, flushing, intolerance to cold, intolerance to heat, increased hunger, increased thirst, increased urine, unexplained weight gain, unexplained weight loss, other Allergies: Coded Allergies: No Known Allergies (Unverified , 10/10/17) Subjective 01/16 left femoral arden in place, on vent, icu, hgb better 01/18 labs are noted, wbc 30, hgb 7, may require prbc today 01/27 is off amio, on epoogen, hgb reviewed, 7.2, transfuse if unstable 01/28 pain meds given, some foaming around mouth, no bleeding 01/29 hd was done yesterday, no bleedig, cbc pending, asa given 01/30 labs are noted, no bleeding, labs reviewed, pending meds 02/01 labs are noted, no bleeding, meds reviewed, no f/c, trach/vent 02/02 labs noted, no night sweats, t/v, labs ordered for am 02/03 labs reviewed, meds noted, no bleeding, hgb 7.9 02/04 meds noted, no bleeding, labs reviewed, hgb 8 02/05 labs are pending, some secretions are noted, no bleeding 02/[address] still with bleed dw Rn, will place seal/further pressure Objective Objective Current Medications Medications (Trade) Dose Ordered Sig/Penny Route PRN Reason Start Time Stop Time Status Last Admin Dose Admin Acetaminophen (Tylenol) 500 mg Q6H PRN GT FEVER 01/21/20 20:45 02/20/20 20:44 01/29/20 02:01 Amantadine HCl (Symmetrel) 100 mg TWICE A DAY GT 01/31/20 18:00 03/01/20 17:59 02/07/20 08:43 Amlodipine Besylate (Norvasc) 5 mg BID GT 01/22/20 18:00 02/20/20 15:44 02/07/20 08:43 Aspirin (ASA) 81 mg DAILY GT 01/20/20 09:00 03/05/20 08:59 02/06/20 08:54 Atorvastatin Calcium (Lipitor) 10 mg BEDTIME GT 01/17/20 21:00 04/16/20 20:59 02/06/20 21:06 Chlorhexidine Gluconate (Ling-Hex 2%) 1 applic DAILY@1999 TOPIC 01/17/20 20:00 04/16/20 19:59 02/06/20 21:16 Dextrose (Dextrose 50%) 25 ml Q30M PRN IV Hypoglycemia 01/15/20 22:15 04/14/20 22:14 Dextrose (Dextrose 50%) 50 ml Q30M PRN IV Hypoglycemia 01/15/20 22:15 04/14/20 22:14 01/22/20 17:54 Docusate Sodium (Colace) 200 mg BIDPRN PRN GT Constipation 01/31/20 07:45 03/01/20 07:44 02/04/20 11:21 Epoetin Gelacio (Epoetin Gelacio(ESRD on dialysis)) 10,000 unit MON-MON-MON SUBQ 01/27/20 21:00 04/26/20 20:59 02/05/20 21:05 Hydralazine HCl (Apresoline) 25 mg Q6HR GT 01/26/20 18:15 04/25/20 18:14 02/07/20 06:08 Isosorbide Dinitrate (Isordil) 20 mg TID GT 01/25/20 09:00 02/19/20 08:59 02/07/20 08:43 Lactulose (Cephulac) 20 gm THREE TIMES A DAY GT 02/04/20 13:00 03/05/20 12:59 12/25/20 08:43 Lansoprazole (Prevacid) 30 mg BID GT 01/19/20 18:00 02/18/20 17:59 02/07/20 08:43 Metoclopramide HCl (Reglan) 5 mg Q6HR IVP 02/05/20 07:00 03/06/20 06:59 02/07/20 06:08 Metoprolol Tartrate (Lopressor) 25 mg Q12HR ORAL 01/27/20 21:00 04/22/20 20:59 02/06/20 21:07 Polyethylene Glycol (Miralax) 17 gm BEDTIME GT 02/04/20 21:00 03/05/20 20:59 02/06/20 21:06 Sodium Hypochlorite (Dakin's Quarter Strength) 1 applic DAILY TOPIC 01/30/20 09:00 02/29/20 08:59 02/07/20 08:44 Zinc Oxide (Zinc Oxide) 1 applic TIDPRN PRN TOPIC diogenes GT 01/16/20 13:15 04/15/20 13:14 01/16/20 14:55 Last 24 Hour Vital Signs Date Time Temp Pulse Resp B/P (MAP) Pulse Ox O2 Delivery O2 Flow Rate FiO2 02/07/20 08:43 128/70 02/07/20 08:43 69 128/70 02/07/20 07:11 60 14 40 02/07/20 06:08 156/71 02/07/20 04:00 98.2 71 14 156/71 (99) 99 02/07/20 04:00 71 02/07/20 04:00 Mechanical Ventilator Mechanical Ventilator 02/07/20 04:00 40 02/07/20 03:20 68 24 40 02/07/20 00:49 144/61 02/07/20 00:00 40 02/07/20 00:00 Mechanical Ventilator Mechanical Ventilator 02/07/20 00:00 97.7 65 14 144/61 (88) 98 02/06/20 23:49 66 02/06/20 23:01 74 21 40 02/06/20 21:07 76 148/78 02/06/20 20:00 40 02/06/20 20:00 Mechanical Ventilator Mechanical Ventilator 02/06/20 20:00 98.2 76 17 148/78 (101) 100 02/06/20 19:33 77 02/06/20 19:20 74 24 40 02/06/20 17:57 120/65 02/06/20 17:57 120/64 02/06/20 17:57 69 120/64 02/06/20 16:10 70 20 126/64 (84) 97 02/06/20 16:00 Mechanical Ventilator Mechanical Ventilator 02/06/20 16:00 76 02/06/20 16:00 40 02/06/20 15:55 70 20 120/75 (90) 99 02/06/20 15:40 75 20 116/54 (74) 99 02/06/20 15:25 68 20 125/61 (82) 98 02/06/20 15:15 68 14 40 02/06/20 14:40 96 24 142/73 (96) 98 02/06/20 14:35 94 24 153/73 (99) 96 02/06/20 14:30 97 22 148/71 (96) 97 02/06/20 14:13 101 24 95 02/06/20 14:08 103 24 170/78 (108) 98 02/06/20 14:03 102 24 160/79 (106) 98 02/06/20 13:57 92 24 02/06/20 13:48 93 25 168/77 (107) 97 02/06/20 13:34 95 25 02/06/20 12:35 125/61 02/06/20 12:34 125/61 02/06/20 12:00 98.1 69 20 135/66 (89) 97 02/06/20 12:00 Mechanical Ventilator Mechanical Ventilator 02/06/20 12:00 40 02/06/20 12:00 61 02/06/20 11:15 71 14 40 02/06/20 08:56 59 02/06/20 08:55 123/66 02/06/20 08:54 66 123/62 02/06/20 08:09 59 02/06/20 08:00 98.2 70 20 139/92 (108) 97 02/06/20 08:00 40 02/06/20 08:00 Mechanical Ventilator Mechanical Ventilator 02/06/20 07:15 69 22 40 02/06/20 06:16 121/61 02/06/20 04:00 78 02/06/20 04:00 40 02/06/20 04:00 Mechanical Ventilator Mechanical Ventilator 02/06/20 04:00 98.2 62 14 121/61 (81) 97 02/06/20 03:12 67 19 40 02/06/20 00:30 142/68 02/06/20 00:00 64 02/06/20 00:00 40 02/06/20 00:00 Mechanical Ventilator Mechanical Ventilator 02/06/20 00:00 98.6 72 22 142/68 (92) 96 02/05/20 22:56 64 17 40 02/05/20 21:04 72 128/73 02/05/20 20:00 Mechanical Ventilator Mechanical Ventilator 02/05/20 20:00 40 02/05/20 20:00 98.2 72 24 128/73 (91) 98 02/05/20 19:03 77 02/05/20 18:12 74 22 40 02/05/20 17:59 65 142/74 02/05/20 17:58 142/74 02/05/20 17:58 142/74 02/05/20 16:00 Mechanical Ventilator Mechanical Ventilator 02/05/20 16:00 69 02/05/20 16:00 40 02/05/20 16:00 97.8 65 16 142/74 (96) 99 02/05/20 15:00 69 25 40 02/05/20 12:10 138/80 02/05/20 12:10 138/80 02/05/20 12:04 62 20 40 02/05/20 12:00 98.3 70 18 140/69 (92) 99 02/05/20 12:00 62 02/05/20 12:00 Mechanical Ventilator Mechanical Ventilator 02/05/20 12:00 40 02/05/20 09:31 67 145/82 02/05/20 09:31 145/82 02/05/20 09:31 67 145/82 Intake and Output 02/06/20 02/07/20 19:00 07:00 Intake Total 350 ml 720 ml Output Total 350 ml Balance 350 ml 370 ml Free Water 300 ml Tube Feeding 350 ml 420 ml Output Urine Total 350 ml # Bowel Movements 2 Labs Test 02/04/20 13:29 02/04/20 18:21 02/05/20 03:00 02/05/20 23:23 POC Whole Blood Glucose 72 MG/DL (74-106) 113 MG/DL (74-106) White Blood Count 5.5 K/UL (4.8-10.8) Red Blood Count 2.82 M/UL (4.20-5.40) Hemoglobin 8.0 G/DL (12.0-16.0) Hematocrit 23.1 % (37.0-47.0) Mean Corpuscular Volume 82 FL (80-99) Mean Corpuscular Hemoglobin 28.4 PG (27.0-31.0) Mean Corpuscular Hemoglobin Concent 34.7 G/DL (32.0-36.0) Red Cell Distribution Width 15.0 % (11.6-14.8) Platelet Count 474 K/UL (150-450) Mean Platelet Volume 6.1 FL (6.5-10.1) Neutrophils (%) (Auto) 68.4 % (45.0-75.0) Lymphocytes (%) (Auto) 23.5 % (20.0-45.0) Monocytes (%) (Auto) 7.2 % (1.0-10.0) Eosinophils (%) (Auto) 0.0 % (0.0-3.0) Basophils (%) (Auto) 0.9 % (0.0-2.0) Sodium Level 136 MMOL/L (136-145) Potassium Level 3.5 MMOL/L (3.5-5.1) Chloride Level 97 MMOL/L (98-107) Carbon Dioxide Level 30 MMOL/L (21-32) Anion Gap 9 mmol/L (5-15) Blood Urea Nitrogen 69 mg/dL (7-18) Creatinine 3.2 MG/DL (0.55-1.30) Estimat Glomerular Filtration Rate 15.5 mL/min (>60) Glucose Level 87 MG/DL (74-106) Calcium Level 8.5 MG/DL (8.5-10.1) Test 02/06/20 03:00 02/06/20 06:11 02/07/20 05:10 White Blood Count 6.7 K/UL (4.8-10.8) 7.1 K/UL (4.8-10.8) Red Blood Count 2.73 M/UL (4.20-5.40) 2.52 M/UL (4.20-5.40) Hemoglobin 7.7 G/DL (12.0-16.0) 7.0 G/DL (12.0-16.0) Hematocrit 24.3 % (37.0-47.0) 21.5 % (37.0-47.0) Mean Corpuscular Volume 89 FL (80-99) 86 FL (80-99) Mean Corpuscular Hemoglobin 28.3 PG (27.0-31.0) 27.7 PG (27.0-31.0) Mean Corpuscular Hemoglobin Concent 31.8 G/DL (32.0-36.0) 32.4 G/DL (32.0-36.0) Red Cell Distribution Width 14.1 % (11.6-14.8) 14.8 % (11.6-14.8) Platelet Count 491 K/UL (150-450) 400 K/UL (150-450) Mean Platelet Volume 5.9 FL (6.5-10.1) 5.6 FL (6.5-10.1) Neutrophils (%) (Auto) % (45.0-75.0) % (45.0-75.0) Lymphocytes (%) (Auto) % (20.0-45.0) % (20.0-45.0) Monocytes (%) (Auto) % (1.0-10.0) % (1.0-10.0) Eosinophils (%) (Auto) % (0.0-3.0) % (0.0-3.0) Basophils (%) (Auto) % (0.0-2.0) % (0.0-2.0) Differential Total Cells Counted 100 Neutrophils % (Manual) 58 % (45-75) Lymphocytes % (Manual) 38 % (20-45) Monocytes % (Manual) 3 % (1-10) Eosinophils % (Manual) 0 % (0-3) Basophils % (Manual) 0 % (0-2) Band Neutrophils 1 % (0-8) Platelet Estimate Increased Platelet Morphology Normal Hypochromasia 2+ Anisocytosis 2+ Sodium Level 137 MMOL/L (136-145) 136 MMOL/L (136-145) Potassium Level 3.6 MMOL/L (3.5-5.1) 3.6 MMOL/L (3.5-5.1) Chloride Level 99 MMOL/L (98-107) 98 MMOL/L (98-107) Carbon Dioxide Level 29 MMOL/L (21-32) 30 MMOL/L (21-32) Anion Gap 9 mmol/L (5-15) 8 mmol/L (5-15) Blood Urea Nitrogen 76 mg/dL (7-18) 81 mg/dL (7-18) Creatinine 3.6 MG/DL (0.55-1.30) 3.8 MG/DL (0.55-1.30) Estimat Glomerular Filtration Rate 13.6 mL/min (>60) 12.8 mL/min (>60) Glucose Level 74 MG/DL (74-106) 86 MG/DL (74-106) Calcium Level 8.7 MG/DL (8.5-10.1) 8.5 MG/DL (8.5-10.1) Phosphorus Level 4.3 MG/DL (2.5-4.9) 4.8 MG/DL (2.5-4.9) Magnesium Level 2.8 MG/DL (1.8-2.4) 2.9 MG/DL (1.8-2.4) Total Bilirubin 0.4 MG/DL (0.2-1.0) 0.4 MG/DL (0.2-1.0) Aspartate Amino Transf (AST/SGOT) 28 U/L (15-37) 27 U/L (15-37) Alanine Aminotransferase (ALT/SGPT) 10 U/L (12-78) 9 U/L (12-78) Alkaline Phosphatase 155 U/L (46-116) 143 U/L (46-116) Total Protein 6.9 G/DL (6.4-8.2) 6.3 G/DL (6.4-8.2) Albumin 1.9 G/DL (3.4-5.0) 1.8 G/DL (3.4-5.0) Globulin 5.0 g/dL 4.5 g/dL Albumin/Globulin Ratio 0.4 (1.0-2.7) 0.4 (1.0-2.7) Uric Acid 5.2 MG/DL (2.6-7.2) C-Reactive Protein, Quantitative 16.9 mg/dL (0.00-0.90) Pro-B-Type Natriuretic Peptide > 87889 pg/mL (0-125) Height (Feet): 5 Height (Inches): 6.00 Weight (Pounds): 150 Objective Physical Exam: Vitals: reviewed General: NAD HEENT: nc, at Neck: supple ++trach/vent Chest: clear breath sounds bilaterally Cardiovascular: RRR, no s3, s4 Abdomen: soft, nontender, nd +gtube Extremities: no cce, normal range of motion Neuro: alert Evan Muhammad MD Feb 07, 2020 08:59
--- NOTE | 2020-02-07 10:10 | NUR ---
NURSE NOTES: Began 1 unit PRBC transfusion as ordered by Dr. Muhammad. VS BP 128/61, HR 69, Temperature 98.1F. Will continue to monitor patient.
--- NOTE | 2020-02-07 10:25 | NUR ---
NURSE NOTES: 15 minute vital signs check for 1 unit PRBC transfusion. BP 109/56, HR 62, Temperature 97.7F. No adverse reactions noted. Will continue to monitor patient.
[2020-02-07] MEDS ORDERED: HYDROcodone/Acetamin 5/325 tab ORAL SCH (11:00)
[2020-02-07] MEDS ORDERED: Surgicel 4in x 8in TOPIC ONE ×2 (11:00)
--- NOTE | 2020-02-07 11:05 | NUR ---
NURSE NOTES: Dr. Saavedra seen and examined patient at bedside. Treated permacath site and sutured incision site. Pressure dressing applied, kept patient's head of bed elevated above 35 degrees. Norvasc 5/325 mg GT given times one as ordered, and Norvasc 5/325 mg GT Q6HR PRN for pain ordered. Will continue to monitor patient. Addendum: 02/07/20 at 1927 by POLLY CARTY RN NURSE NOTES: Correction: [place] 5/325 mg GT Q6HR PRN for pain.
--- NOTE | 2020-02-07 11:10 | NUR ---
NURSE NOTES: Dr. Saavedra at patient's bedside, per Dr. Saavedra will reassess tomorrow if safe to discontinue left femoral non-tunneled arden dialysis catheter. Noted. Charge nurse aware. Will continue to monitor patient.
--- NOTE | 2020-02-07 11:23 | Surgery Progress Note ---
Surgery Progress Note Subjective Procedure Performed Left femoral temporary hemodialysis catheter insertion Additional Comments bleeding from permacath insertion site no n/v labs noted hemostasis with suture at bedside Objective Last 24 Hour Vital Signs Date Time Temp Pulse Resp B/P (MAP) Pulse Ox O2 Delivery O2 Flow Rate FiO2 02/07/20 08:43 128/70 02/07/20 08:43 69 128/70 02/07/20 08:00 40 02/07/20 08:00 60 02/07/20 08:00 98.1 69 14 128/70 (89) 97 02/07/20 08:00 Mechanical Ventilator Mechanical Ventilator 02/07/20 07:11 60 14 40 02/07/20 06:08 156/71 02/07/20 04:00 98.2 71 14 156/71 (99) 99 02/07/20 04:00 71 02/07/20 04:00 Mechanical Ventilator Mechanical Ventilator 02/07/20 04:00 40 02/07/20 03:20 68 24 40 02/07/20 00:49 144/61 02/07/20 00:00 40 02/07/20 00:00 Mechanical Ventilator Mechanical Ventilator 02/07/20 00:00 97.7 65 14 144/61 (88) 98 02/06/20 23:49 66 02/06/20 23:01 74 21 40 02/06/20 21:07 76 148/78 02/06/20 20:00 40 02/06/20 20:00 Mechanical Ventilator Mechanical Ventilator 02/06/20 20:00 98.2 76 17 148/78 (101) 100 02/06/20 19:33 77 02/06/20 19:20 74 24 40 02/06/20 17:57 120/65 02/06/20 17:57 120/64 02/06/20 17:57 69 120/64 02/06/20 16:10 70 20 126/64 (84) 97 02/06/20 16:00 Mechanical Ventilator Mechanical Ventilator 02/06/20 16:00 76 02/06/20 16:00 40 02/06/20 15:55 70 20 120/75 (90) 99 02/06/20 15:40 75 20 116/54 (74) 99 02/06/20 15:25 68 20 125/61 (82) 98 02/06/20 15:15 68 14 40 02/06/20 14:40 96 24 142/73 (96) 98 02/06/20 14:35 94 24 153/73 (99) 96 02/06/20 14:30 97 22 148/71 (96) 97 02/06/20 14:13 101 24 95 02/06/20 14:08 103 24 170/78 (108) 98 02/06/20 14:03 102 24 160/79 (106) 98 02/06/20 13:57 92 24 02/06/20 13:48 93 25 168/77 (107) 97 02/06/20 13:34 95 25 02/06/20 12:35 125/61 02/06/20 12:34 125/61 02/06/20 12:00 98.1 69 20 135/66 (89) 97 02/06/20 12:00 Mechanical Ventilator Mechanical Ventilator 02/06/20 12:00 40 02/06/20 12:00 61 I&O Intake and Output 02/06/20 02/07/20 19:00 07:00 Intake Total 350 ml 720 ml Output Total 350 ml Balance 350 ml 370 ml Free Water 300 ml Tube Feeding 350 ml 420 ml Output Urine Total 350 ml # Bowel Movements 2 Dressing: saturated Cardiovascular: RSR Respiratory: decreased breath sounds Abdomen: non-tender, present bowel sounds, non-distended Extremities: no tenderness, no cyanosis Laboratory Tests Test 02/07/20 05:10 White Blood Count 7.1 K/UL (4.8-10.8) Red Blood Count 2.52 M/UL (4.20-5.40) L Hemoglobin 7.0 G/DL (12.0-16.0) L Hematocrit 21.5 % (37.0-47.0) L Mean Corpuscular Volume 86 FL (80-99) Mean Corpuscular Hemoglobin 27.7 PG (27.0-31.0) Mean Corpuscular Hemoglobin Concent 32.4 G/DL (32.0-36.0) Red Cell Distribution Width 14.8 % (11.6-14.8) Platelet Count 400 K/UL (150-450) Mean Platelet Volume 5.6 FL (6.5-10.1) L Neutrophils (%) (Auto) % (45.0-75.0) Lymphocytes (%) (Auto) % (20.0-45.0) Monocytes (%) (Auto) % (1.0-10.0) Eosinophils (%) (Auto) % (0.0-3.0) Basophils (%) (Auto) % (0.0-2.0) Sodium Level 136 MMOL/L (136-145) Potassium Level 3.6 MMOL/L (3.5-5.1) Chloride Level 98 MMOL/L (98-107) Carbon Dioxide Level 30 MMOL/L (21-32) Anion Gap 8 mmol/L (5-15) Blood Urea Nitrogen 81 mg/dL (7-18) H Creatinine 3.8 MG/DL (0.55-1.30) H Estimat Glomerular Filtration Rate 12.8 mL/min (>60) Glucose Level 86 MG/DL (74-106) Uric Acid 5.2 MG/DL (2.6-7.2) Calcium Level 8.5 MG/DL (8.5-10.1) Phosphorus Level 4.8 MG/DL (2.5-4.9) Magnesium Level 2.9 MG/DL (1.8-2.4) H Total Bilirubin 0.4 MG/DL (0.2-1.0) Aspartate Amino Transf (AST/SGOT) 27 U/L (15-37) Alanine Aminotransferase (ALT/SGPT) 9 U/L (12-78) L Alkaline Phosphatase 143 U/L (46-116) H C-Reactive Protein, Quantitative 16.9 mg/dL (0.00-0.90) H Pro-B-Type Natriuretic Peptide > 88334 pg/mL (0-125) H Total Protein 6.3 G/DL (6.4-8.2) L Albumin 1.8 G/DL (3.4-5.0) L Globulin 4.5 g/dL Albumin/Globulin Ratio 0.4 (1.0-2.7) L Plan Problems: (1) Dehydration (2) Acidosis (3) Depression (4) Pleural effusion (5) Respiratory failure (6) Schizophrenia (7) Hypoxia (8) UTI (urinary tract infection) (9) Pneumonia (10) NSTEMI (non-ST elevated myocardial infarction) (11) Tracheostomy in place (12) Feeding by G-tube (13) JAVIER (acute kidney injury) (14) Acute encephalopathy (15) Sacral decubitus ulcer, stage IV (16) Chronic respiratory failure (17) Ascites (18) Bacteremia (19) Hypernatremia (20) Proteinuria (21) Electrolyte imbalance (22) ACS (acute coronary syndrome) (23) Aortic dissection, thoracic (24) Respiratory failure, acute and chronic (25) JAVIER (acute kidney injury) (26) Abrasion of lip, initial encounter (27) COPD with exacerbation (28) Elevated alkaline phosphatase level (29) Renal failure (ARF), acute on chronic (30) HCAP (healthcare-associated pneumonia) (31) GT CLOGGED (32) Elevated lipase (33) Pancreatitis (34) Elevated troponin (35) Hypokalemia (36) Hyponatremia (37) Anemia (38) Renal failure (39) ARF (acute renal failure) (40) Pacemaker (41) Sepsis Assessment & Plan: leukocytosis anemia on HD renal insufficiency wounds addressed pancreatitis cont diet as tolerating trend labs lf'ts okay bleeding from permacath site suture used and hemostasis obtained plan removal of fem line if stable tomorrow pt presented on admission with Tracheostomy ,GT and Multiple Pressure Injuries. Skin assessment of skin under tracheal collar without evidence of skin breakdown. Peristomal GT site excoriated.Moderate amt of dark red sanguineous exudate. Full Thickness Sacral Pressure Injury with undermined borders (L)9 cm x (W)12cm x (D)1.8cm,Undermining clockwise8-9 by 2.2cm @1o'clock,undermining clockwise 1-4 by 1.9 @ 9'oclock Scattered necrotic tissue within wound bed. Borders are loose and necrotic with marginal erythema to outer perimeter of wound. NO elevation in skin temp noted periwound. Wound is malodorous. Small amt Brown exudate noted. Resolving Pressure Injury L Ischium(L)1.5cm x (W)1.5cm. Base of wound is 80% pink epithelial with an area that is moist and pink. NO odor or exudate noted. Bilat foot-drop noted. L Heel is boggy with non-blanchable erythema(L)4cm x (W)4cm. R heel is boggy with non-Blanchable erythema(L)5cm x (W)6cm. Tx.Plan: Cleanse sacral wound with Dakin's 0.125% annie. Loosely pack with Dakin's moistened Kerlix(Attention to undermined borders). Apply Moisture Barrier Paste periwound. Cover with Optifoam drsg. Change Daily and PRN. Apply Cavilon Skin Barrier to R and L Hels. Cover each heel with Optifoam drsg. Change every 7 days and prn. Reposition at least every 2hours or as tolerated. Off-load heels with Pillow. APM/JENNIFER MAttress overlay DAILY ESTIMATED NEEDS: Needs based on Critical care, wound, renal dysfunction 56 kg abw 28-33 kcals/kg [id number] total kcals W/ HD (1.5-2.0) g protein/kg 84-112 g total protein Fluid per MD NUTRITION DIAGNOSIS: * Swallowing difficulty R/T dysphagia, respiratory status as evidenced by vent dep via trach, GT Dep. * Increase kcal and pro needs r/t wound healing, renal dysfunction as evidenced by admitted w/ stage 4 sacral wound, admitted w/ JAVIER, now on HD. CURRENT TF: Nepro @ 40ml/hr x 24 hrs ENTERAL NUTRITION RECOMMENDATIONS: Nepro @ 40ml/hr x 24 hrs + Prosource 1pkt QD to provide 960ml, 1728kcal, 78g+11g prot, 698ml free water * Maintain current TF @ goal as tolerated * Add Prosource 1pkt QD to better meet increased protein needs (additional 11g prot) * Water flush per MD/ HOB over 30 degrees ADDITIONAL RECOMMENDATIONS: * Per SNF in NOV 2019: HT=63"/ Rec daily calibrated bedscale wt * Monitor for continuity of HD, next HD 02/03 * Rec phos binders- consistently elevated phos level * Wound care: add Nephrovite x 1, ZnSO4 220mg QD x 10 days Reynaldo BID via PEG (mix w/ 2-4 oz water); vit C per nephro * Monitor TF tolerance: elev lipase, slowly trending down * Add bowel regimen: no BM x 8 days, last BM on 01/25. (42) Hyponatremia Lane Saavedra Feb 07, 2020 11:23
[2020-02-07 12:00] VITALS: BP 130/57
--- NOTE | 2020-02-07 12:38 | Pulmonology Progress Note ---
Subjective ROS Limited/Unobtainable: No Interval Events: None new Constitutional: Reports: no symptoms HEENT: Repors: no symptoms Respiratory: Reports: no symptoms Cardiovascular: Reports: no symptoms Gastrointestinal/Abdominal: Reports: no symptoms Allergies: Coded Allergies: No Known Allergies (Unverified , 10/10/17) All Systems: reviewed and negative except above Objective Last 24 Hour Vital Signs Date Time Temp Pulse Resp B/P (MAP) Pulse Ox O2 Delivery O2 Flow Rate FiO2 02/07/20 12:00 Mechanical Ventilator Mechanical Ventilator 02/07/20 12:00 40 02/07/20 11:55 128/70 02/07/20 11:54 128/70 02/07/20 11:24 64 15 40 02/07/20 08:43 128/70 02/07/20 08:43 69 128/70 02/07/20 08:00 40 02/07/20 08:00 60 02/07/20 08:00 98.1 69 14 128/70 (89) 97 02/07/20 08:00 Mechanical Ventilator Mechanical Ventilator 02/07/20 07:11 60 14 40 02/07/20 06:08 156/71 02/07/20 04:00 98.2 71 14 156/71 (99) 99 02/07/20 04:00 71 02/07/20 04:00 Mechanical Ventilator Mechanical Ventilator 02/07/20 04:00 40 02/07/20 03:20 68 24 40 02/07/20 00:49 144/61 02/07/20 00:00 40 02/07/20 00:00 Mechanical Ventilator Mechanical Ventilator 02/07/20 00:00 97.7 65 14 144/61 (88) 98 02/06/20 23:49 66 02/06/20 23:01 74 21 40 02/06/20 21:07 76 148/78 02/06/20 20:00 40 02/06/20 20:00 Mechanical Ventilator Mechanical Ventilator 02/06/20 20:00 98.2 76 17 148/78 (101) 100 02/06/20 19:33 77 02/06/20 19:20 74 24 40 02/06/20 17:57 120/65 02/06/20 17:57 120/64 02/06/20 17:57 69 120/64 02/06/20 16:10 70 20 126/64 (84) 97 12/24/20 16:00 Mechanical Ventilator Mechanical Ventilator 02/06/20 16:00 76 02/06/20 16:00 40 02/06/20 15:55 70 20 120/75 (90) 99 02/06/20 15:40 75 20 116/54 (74) 99 02/06/20 15:25 68 20 125/61 (82) 98 02/06/20 15:15 68 14 40 02/06/20 14:40 96 24 142/73 (96) 98 02/06/20 14:35 94 24 153/73 (99) 96 02/06/20 14:30 97 22 148/71 (96) 97 02/06/20 14:13 101 24 95 02/06/20 14:08 103 24 170/78 (108) 98 02/06/20 14:03 102 24 160/79 (106) 98 02/06/20 13:57 92 24 02/06/20 13:48 93 25 168/77 (107) 97 02/06/20 13:34 95 25 Intake and Output 02/06/20 02/07/20 19:00 07:00 Intake Total 350 ml 720 ml Output Total 350 ml Balance 350 ml 370 ml Free Water 300 ml Tube Feeding 350 ml 420 ml Output Urine Total 350 ml # Bowel Movements 2 General Appearance: no acute distress HEENT: normocephalic, other - trach Respiratory: chest wall non-tender, other - coarse lung sounds Cardiovascular: normal rate, regular rhythm Abdomen: soft, non tender Genitourinary: other - Norman Extremities: other - trace edema Laboratory Tests 02/07/20 05:10: White Blood Count 7.1, Red Blood Count 2.52L, Hemoglobin 7.0L, Hematocrit 21.5L, Mean Corpuscular Volume 86, Mean Corpuscular Hemoglobin 27.7, Mean Corpuscular Hemoglobin Concent 32.4, Red Cell Distribution Width 14.8, Platelet Count 400, Mean Platelet Volume 5.6L, Neutrophils (%) (Auto) , Lymphocytes (%) (Auto) , Monocytes (%) (Auto) , Eosinophils (%) (Auto) , Basophils (%) (Auto) , Sodium Level 136, Potassium Level 3.6, Chloride Level 98, Carbon Dioxide Level 30, Anion Gap 8, Blood Urea Nitrogen 81H, Creatinine 3.8H, Estimat Glomerular Filtration Rate 12.8, Glucose Level 86, Uric Acid 5.2, Calcium Level 8.5, Phosphorus Level 4.8, Magnesium Level 2.9H, Total Bilirubin 0.4, Aspartate Amino Transf (AST/SGOT) 27, Alanine Aminotransferase (ALT/SGPT) 9L, Alkaline Phosphatase 143H, C-Reactive Protein, Quantitative 16.9H, Pro-B-Type Natriuretic Peptide > 73159A, Total Protein 6.3L, Albumin 1.8L, Globulin 4.5, Albumin/Globulin Ratio 0.4L Current Medications Medications (Trade) Dose Ordered Sig/Penny Route PRN Reason Start Time Stop Time Status Last Admin Dose Admin Acetaminophen (Tylenol) 500 mg Q6H PRN GT FEVER 01/21/20 20:45 02/20/20 20:44 01/29/20 02:01 Acetaminophen/ Hydrocodone Bitart ([place] 5/325) 1 tab Q6H PRN ORAL For Pain 02/07/20 11:00 02/14/20 10:59 Amantadine HCl (Symmetrel) 100 mg TWICE A DAY GT 01/31/20 18:00 03/01/20 17:59 02/07/20 08:43 Amlodipine Besylate (Norvasc) 5 mg BID GT 01/22/20 18:00 02/20/20 15:44 02/07/20 08:43 Aspirin (ASA) 81 mg DAILY GT 01/20/20 09:00 03/05/20 08:59 02/06/20 08:54 Atorvastatin Calcium (Lipitor) 10 mg BEDTIME GT 01/17/20 21:00 04/16/20 20:59 02/06/20 21:06 Chlorhexidine Gluconate (Ling-Hex 2%) 1 applic DAILY@1999 TOPIC 01/17/20 20:00 04/16/20 19:59 02/06/20 21:16 Dextrose (Dextrose 50%) 25 ml Q30M PRN IV Hypoglycemia 01/15/20 22:15 04/14/20 22:14 Dextrose (Dextrose 50%) 50 ml Q30M PRN IV Hypoglycemia 01/15/20 22:15 04/14/20 22:14 01/22/20 17:54 Docusate Sodium (Colace) 200 mg BIDPRN PRN GT Constipation 01/31/20 07:45 03/01/20 07:44 02/04/20 11:21 Epoetin Gelacio (Epoetin Gelacio(ESRD on dialysis)) 10,000 unit MON-MON-MON SUBQ 01/27/20 21:00 04/26/20 20:59 02/05/20 21:05 Hydralazine HCl (Apresoline) 25 mg Q6HR GT 01/26/20 18:15 04/25/20 18:14 02/07/20 06:08 Isosorbide Dinitrate (Isordil) 20 mg TID GT 01/25/20 09:00 02/19/20 08:59 02/07/20 08:43 Lactulose (Cephulac) 20 gm THREE TIMES A DAY GT 02/04/20 13:00 03/05/20 12:59 02/07/20 12:07 Lansoprazole (Prevacid) 30 mg BID GT 01/19/20 18:00 02/18/20 17:59 02/07/20 08:43 Metoclopramide HCl (Reglan) 5 mg Q6HR IVP 02/05/20 07:00 03/06/20 06:59 02/07/20 06:08 Metoprolol Tartrate (Lopressor) 25 mg Q12HR ORAL 01/27/20 21:00 04/22/20 20:59 02/06/20 21:07 Polyethylene Glycol (Miralax) 17 gm BEDTIME GT 02/04/20 21:00 03/05/20 20:59 02/06/20 21:06 Sodium Hypochlorite (Dakin's Quarter Strength) 1 applic DAILY TOPIC 01/30/20 09:00 02/29/20 08:59 02/07/20 08:44 Zinc Oxide (Zinc Oxide) 1 applic TIDPRN PRN TOPIC diogenes GT 01/16/20 13:15 04/15/20 13:14 01/16/20 14:55 Assessment/Plan Assessment/Plan Assessment/Plan 1. Large left effusion. - S/p thoracentesis; CXR better - pleural fluid pathology report: negative for malignant cell 2. Chronic respiratory failure. - Continue trach care - Cont AC mode - Currently saturating at 97% 3. Sepsis; improving 4. Anemia - improving - s/p transfusion - s/p Epogen - repeat stool OB pending per Dr. Mccauley s/p HD on broad-spectrum antibiotics. Pulmonary hygiene. DVT and GI prophylaxes. Dc planning in place FiO2 increased previously to 60%; now decreased to 40%; will wean further Elijah Hickman MD, MD Feb 07, 2020 12:38
--- NOTE | 2020-02-07 13:10 | NUR ---
NURSE NOTES: 1 unit PRBC transfusion finished transfusing. Post blood transfusion vital signs: BP 129/55, HR 59, Temperature 97.9 F. No adverse reactions noted. Will continue to monitor patient.
--- NOTE | 2020-02-07 13:15 | NUR ---
NURSE NOTES: Spoke with [facility] nurse, informed this nurse that due to backlog in patient's and multiple emergency dialysis today, may not be able to do dialysis for patient today and may have to be postponed tomorrow. Per dialysis nurse spoke with Dr. Houston and made aware of situation. Per [facility] dialysis nurse Dr. Houston stated will look at BUN and creatinine level today first and decided. Noted. Will continue to monitor patient.
--- NOTE | 2020-02-07 14:00 | Nephrology Progress Note ---
Assessment/Plan Problem List: (1) ARF (acute renal failure) (2) Pacemaker (3) Sepsis (4) Hyponatremia Assessment (1) JAVIER (acute kidney injury) (2) Renal failure (ARF), acute on chronic (3) Feeding by G-tube (4) Tracheostomy in place (5) Electrolyte imbalance, hyponatremia (6) Anemia, severe (7) Respiratory failure, acute and chronic (8) Elevated lipase, pancreatitis (9) Elevated troponin I (10) Sepsis Plan February 06: Labs reviewed. Last dialysis February 03. Will postpone today's dialysis to tomorrow. Continue per current treatment plan. February 05: Labs reviewed. Last dialysis February 03. Will order dialysis tomorrow. Waiting for tunneled catheter placement. February 04: Labs reviewed. Dialyzed yesterday. With a plan for insertion of a tunneled dialysis catheter and discontinue left groin dialysis catheter afterwards. Check labs in a.m. Discussed with Dr. Dong. February 03: Labs reviewed. Due for dialysis today. Continue per consultants. February 02: Labs reviewed. Will order dialysis tomorrow. Continue per consultants. February 01: Labs reviewed. Creatinine gradually rising. Will dialyze as needed. Continue to monitor renal parameters. January 31: Last dialysis January 29. Labs reviewed. No need for dialysis today. Continue per current management. Hemodialysis as needed. Will check renal parameters and chemistries tomorrow. January 30: Patient was dialyzed yesterday. No labs drawn today. Continue to monitor renal parameters and dialyze as needed. Continue per consultants and PMD. January 29: Patient due for dialysis today. Today's can panel reviewed. Continue to monitor renal parameters and dialysis as needed. January 28: Patient last dialyzed January 26. No labs drawn today. Will order dialysis tomorrow. Check chemistry panel tomorrow. Continue per consultants. January 27: Patient was dialyzed yesterday . Labs were reviewed. Electrolytes within normal limit. Blood pressure stable. January 26: When visited the patient earlier today the patient was on dialysis. Tolerating well. Labs reviewed. Blood pressure stable. January 25: Dialysis for tomorrow. Labs reviewed. Hemoglobin remains low. Will adjust blood pressure medication. Hydralazine added to the regimen January 24: Last dialyzed January 22. Labs reviewed. Status quo. Will dialyze as needed. Low hemoglobin noted. Transfusion per PMD decision. Epogen started. \January 23: Dialyzed yesterday. Today's labs reviewed. Continue to monitor renal parameters and arrange for dialysis as needed. Continue per PMD. January 22: Seen earlier during dialysis. Labs reviewed. Medication list reviewed. Continue current management. January 21: Labs reviewed. Medication list reviewed. Next hemodialysis tomorrow. Blood pressure medication adjusted. January 20: Dialyzed yesterday. Labs reviewed. Continue per current management. Dialysis as needed. Add Norvasc to blood pressure regimen January 19: Due for dialysis today. Labs reviewed. Continue her current management. Continue to monitor renal parameters and electrolytes. January 18: Dialyzed yesterday. Labs reviewed. Renal parameters electrolytes much improved. Dialysis again tomorrow. Continue rest. January 17: Dialyzed this morning. Labs reviewed. Renal parameters and electrolyte abnormalities improved. Discussed with RN. Continue per consultants. January 16: Dialyzed yesterday. Labs improved. Next dialysis tomorrow. Continue per consultants. January 15: Patient to have dialysis catheter. Emergency dialysis for correction of uremia and electrolyte imbalances Antibiotics Transfusion Continue to monitor renal parameters Per orders Discussed with RN Subjective ROS Limited/Unobtainable: Yes Objective Objective Last 24 Hour Vital Signs Date Time Temp Pulse Resp B/P (MAP) Pulse Ox O2 Delivery O2 Flow Rate FiO2 02/07/20 12:00 98.1 60 14 130/57 (81) 97 02/07/20 12:00 Mechanical Ventilator Mechanical Ventilator 02/07/20 12:00 40 02/07/20 11:55 128/70 02/07/20 11:54 128/70 02/07/20 11:24 64 15 40 02/07/20 08:43 128/70 02/07/20 08:43 69 128/70 02/07/20 08:00 40 02/07/20 08:00 60 02/07/20 08:00 98.1 69 14 128/70 (89) 97 02/07/20 08:00 Mechanical Ventilator Mechanical Ventilator 02/07/20 07:11 60 14 40 02/07/20 06:08 156/71 02/07/20 04:00 98.2 71 14 156/71 (99) 99 02/07/20 04:00 71 02/07/20 04:00 Mechanical Ventilator Mechanical Ventilator 02/07/20 04:00 40 02/07/20 03:20 68 24 40 02/07/20 00:49 144/61 02/07/20 00:00 40 02/07/20 00:00 Mechanical Ventilator Mechanical Ventilator 02/07/20 00:00 97.7 65 14 144/61 (88) 98 02/06/20 23:49 66 02/06/20 23:01 74 21 40 02/06/20 21:07 76 148/78 02/06/20 20:00 40 02/06/20 20:00 Mechanical Ventilator Mechanical Ventilator 02/06/20 20:00 98.2 76 17 148/78 (101) 100 02/06/20 19:33 77 02/06/20 19:20 74 24 40 02/06/20 17:57 120/65 02/06/20 17:57 120/64 02/06/20 17:57 69 120/64 02/06/20 16:10 70 20 126/64 (84) 97 02/06/20 16:00 Mechanical Ventilator Mechanical Ventilator 02/06/20 16:00 76 02/06/20 16:00 40 02/06/20 15:55 70 20 120/75 (90) 99 02/06/20 15:40 75 20 116/54 (74) 99 02/06/20 15:25 68 20 125/61 (82) 98 02/06/20 15:15 68 14 40 02/06/20 14:40 96 24 142/73 (96) 98 02/06/20 14:35 94 24 153/73 (99) 96 02/06/20 14:30 97 22 148/71 (96) 97 02/06/20 14:13 101 24 95 02/06/20 14:08 103 24 170/78 (108) 98 02/06/20 14:03 102 24 160/79 (106) 98 Intake and Output 02/06/20 02/07/20 19:00 07:00 Intake Total 350 ml 720 ml Output Total 350 ml Balance 350 ml 370 ml Free Water 300 ml Tube Feeding 350 ml 420 ml Output Urine Total 350 ml # Bowel Movements 2 Laboratory Tests 02/07/20 05:10: White Blood Count 7.1, Red Blood Count 2.52L, Hemoglobin 7.0L, Hematocrit 21.5L, Mean Corpuscular Volume 86, Mean Corpuscular Hemoglobin 27.7, Mean Corpuscular Hemoglobin Concent 32.4, Red Cell Distribution Width 14.8, Platelet Count 400, Mean Platelet Volume 5.6L, Neutrophils (%) (Auto) , Lymphocytes (%) (Auto) , Monocytes (%) (Auto) , Eosinophils (%) (Auto) , Basophils (%) (Auto) , Sodium Level 136, Potassium Level 3.6, Chloride Level 98, Carbon Dioxide Level 30, Anion Gap 8, Blood Urea Nitrogen 81H, Creatinine 3.8H, Estimat Glomerular Filtration Rate 12.8, Glucose Level 86, Uric Acid 5.2, Calcium Level 8.5, Phosphorus Level 4.8, Magnesium Level 2.9H, Total Bilirubin 0.4, Aspartate Amino Transf (AST/SGOT) 27, Alanine Aminotransferase (ALT/SGPT) 9L, Alkaline Phosphatase 143H, C-Reactive Protein, Quantitative 16.9H, Pro-B-Type Natriuretic Peptide > 24226H, Total Protein 6.3L, Albumin 1.8L, Globulin 4.5, Albumin/Globulin Ratio 0.4L Height (Feet): 5 Height (Inches): 6.00 Weight (Pounds): 150 General Appearance: no apparent distress Cardiovascular: normal rate Respiratory/Chest: decreased breath sounds Abdomen: distended Objective No change Johnny Houston MD Feb 07, 2020 14:00
--- NOTE | 2020-02-07 14:54 | NUR ---
NURSE NOTES: Called [facility] Nephrology, , spoke with Usman, informed of hemodialysis order for tomorrow 02/08/[address] Houston. Usman acknowledged and informed this nurse that dialysis nurse will be made aware. Noted in dialysis notification intervention. Will continue to monitor patient.
[2020-02-07 15:57] VITALS: BP 131/57
[2020-02-07] MEDS: HYDROcodone/Acetamin 5/325 tab ORAL PRN (17:02)
--- NOTE | 2020-02-07 18:11 | NUR ---
NURSE NOTES: No active bleeding noted at permacath insertion site. Pressure dressing remains intact. Will continue to monitor patient.
--- NOTE | 2020-02-07 19:15 | NUR ---
NURSE NOTES: Received report from Mckinely Amezcua RN. Patient asleep in bed, afebrile and no respiratory distress noted. SR at 70bpm on 5 lead case monitor. Pt is arousable, opens eyes and tracks. trache to vent S6, AC 14, TV 500, FiO2 40% and PEEP 5 saturating at 97-99%. On nephro at 35ml/hr via GT infusing well, no residual and sediments noted. With Right FA 22G/ Left wrist 18 g IV lines intact, patent and asymptomatic. with right EJ permacath intact, asymptomatic, no bleeding, dry dressing is intact also. with dry dressing on right subclavian and sutures in place without any bleeding. With left femoral arden catheter intact and asymptomatic. Dressing was changed and now clean and dry. with FC to urine bag draining hematuria. Needs were attended. Bed rails are up and wheels are locked. Continue to monitor the patient
--- NOTE | 2020-02-07 19:21 | NUR ---
NURSE HAND-OFF REPORT: Important Events on Shift: Patient Status: Stable. No active bleeding noted on permacath incision site. Endorsed accordingly. Diet: Nepro 35 ml/hr Pending Orders: None Pending Results/Labs:None Pending MD notification: None Latest Vital Signs: Temperature 97.7 , Pulse 72 , B/P 122 /68 , Respiratory Rate 21 , O2 SAT 95 , Mechanical Ventilator, O2 Flow Rate . Vital Sign Comment: Stable EKG Rhythm: Sinus Rhythm Rhythm change?: N MD Notified?: Gabriel Willams MD Response: Order Received& Read Back Latest Chavarria Fall Score: 50 Fall Risk: High Risk Safety Measures: Call light Within Reach, Bed Alarm Zone 1, Side Rails Side Rails x2, Bed position Low and Locked. Fall Precautions: Yellow Socks Report given to ERASMO Alicia.
[2020-02-07 20:00] VITALS: BP 116/63
[2020-02-07] MEDS: Epoetin Alfa-EPBX(ESRD on dialysis)10,000 unit/ml vial SUBQ SCH (20:18)
--- NOTE | 2020-02-07 20:19 | NUR ---
NURSE NOTES: Epogen ( on dialysis day ) hold. Pt didn't get dialysis today. Dialysis scheduled tomorrow.
[2020-02-07] MEDS: Dyna-Hex 2% Top Sol 2oz TOPIC SCH (20:40)
[2020-02-07] MEDS: Miralax 17gm pkt GT SCH (20:41)
[2020-02-08] VITALS: BP 143/57
[2020-02-08] MEDS: Metoclopramide 10mg/2ml Inj IVP SCH ×4 (01:56→17:04)
[2020-02-08] MEDS: HydrALAZINE 25mg tab GT SCH ×4 (01:56→17:04)
--- NOTE | 2020-02-08 02:50 | Cardiology Progress Note ---
Subjective DATE OF SERVICE: Feb 07, 2020 Scheduled for HD/UF tomorrow; tunneled cath placement pending. Remains in atrial fibrillation; rates controlled. Occasional PVC's - non- sustained BP range stable Full vent support via trach s/p left thorocentesis 01/22/20 Low hemoglobin - down to 7.0 gm/dl - on epogen Objective Last 24 Hour Vital Signs Date Time Temp Pulse Resp B/P (MAP) Pulse Ox O2 Delivery O2 Flow Rate FiO2 02/08/20 01:56 143/57 02/08/20 01:00 70 21 40 02/08/20 00:00 40 02/08/20 00:00 97.9 55 14 143/57 (85) 96 02/08/20 00:00 Mechanical Ventilator Mechanical Ventilator 02/07/20 23:50 56 02/07/20 20:41 98 116/63 02/07/20 20:00 66 02/07/20 20:00 40 02/07/20 20:00 Mechanical Ventilator Mechanical Ventilator 02/07/20 20:00 98.1 98 14 116/63 (80) 95 02/07/20 18:42 72 21 40 02/07/20 18:07 122/68 02/07/20 17:39 69 131/62 02/07/20 17:38 131/62 02/07/20 16:00 40 02/07/20 15:58 55 02/07/20 15:57 97.7 59 14 131/57 (81) 95 02/07/20 15:56 Mechanical Ventilator Mechanical Ventilator 02/07/20 15:13 58 16 40 02/07/20 12:00 98.1 60 14 130/57 (81) 97 02/07/20 12:00 Mechanical Ventilator Mechanical Ventilator 02/07/20 12:00 40 02/07/20 12:00 69 02/07/20 11:55 128/70 02/07/20 11:54 128/70 02/07/20 11:24 64 15 40 02/07/20 08:43 128/70 02/07/20 08:43 69 128/70 02/07/20 08:00 40 02/07/20 08:00 60 02/07/20 08:00 98.1 69 14 128/70 (89) 97 02/07/20 08:00 Mechanical Ventilator Mechanical Ventilator 02/07/20 07:11 60 14 40 12/25/20 06:08 156/71 02/07/20 04:00 98.2 71 14 156/71 (99) 99 02/07/20 04:00 71 02/07/20 04:00 Mechanical Ventilator Mechanical Ventilator 02/07/20 04:00 40 02/07/20 03:20 68 24 40 ROS: unchanged for 01/17/20 HEENT: Mechanically Ventilated, Thick Trach secretions RHYTHM: Afib LUNGS: bilateral rhonchi, trach site clean CARDIAC: normal S1 and S2, irregularly irregular, other - no rub ABDOMEN: normal bowel sounds, non tender, soft, G-Tube intact, other - left groin- no bleeding at old cath site EXTREMITIES: normal inspection, trace edema Laboratory Tests Test 02/07/20 05:10 White Blood Count 7.1 K/UL (4.8-10.8) Red Blood Count 2.52 M/UL (4.20-5.40) L Hemoglobin 7.0 G/DL (12.0-16.0) L Hematocrit 21.5 % (37.0-47.0) L Mean Corpuscular Volume 86 FL (80-99) Mean Corpuscular Hemoglobin 27.7 PG (27.0-31.0) Mean Corpuscular Hemoglobin Concent 32.4 G/DL (32.0-36.0) Red Cell Distribution Width 14.8 % (11.6-14.8) Platelet Count 400 K/UL (150-450) Mean Platelet Volume 5.6 FL (6.5-10.1) L Neutrophils (%) (Auto) % (45.0-75.0) Lymphocytes (%) (Auto) % (20.0-45.0) Monocytes (%) (Auto) % (1.0-10.0) Eosinophils (%) (Auto) % (0.0-3.0) Basophils (%) (Auto) % (0.0-2.0) Sodium Level 136 MMOL/L (136-145) Potassium Level 3.6 MMOL/L (3.5-5.1) Chloride Level 98 MMOL/L (98-107) Carbon Dioxide Level 30 MMOL/L (21-32) Anion Gap 8 mmol/L (5-15) Blood Urea Nitrogen 81 mg/dL (7-18) H Creatinine 3.8 MG/DL (0.55-1.30) H Estimat Glomerular Filtration Rate 12.8 mL/min (>60) Glucose Level 86 MG/DL (74-106) Uric Acid 5.2 MG/DL (2.6-7.2) Calcium Level 8.5 MG/DL (8.5-10.1) Phosphorus Level 4.8 MG/DL (2.5-4.9) Magnesium Level 2.9 MG/DL (1.8-2.4) H Total Bilirubin 0.4 MG/DL (0.2-1.0) Aspartate Amino Transf (AST/SGOT) 27 U/L (15-37) Alanine Aminotransferase (ALT/SGPT) 9 U/L (12-78) L Alkaline Phosphatase 143 U/L (46-116) H C-Reactive Protein, Quantitative 16.9 mg/dL (0.00-0.90) H Pro-B-Type Natriuretic Peptide > 49237 pg/mL (0-125) H Total Protein 6.3 G/DL (6.4-8.2) L Albumin 1.8 G/DL (3.4-5.0) L Globulin 4.5 g/dL Albumin/Globulin Ratio 0.4 (1.0-2.7) L Assessment/Plan Assessment/Plan Chronic respiratory failure with trach Severe sepsis PAFib with rapid ventric response. Ischemic cardiomyopathy - hx CABG and s/p NSTEMI in Dec 2019. Conduction system disease of the heart Hx of permanent pacemaker explant Acute on chronic systolic and diastolic CHF Pleural effusion Anemia Hypertension/HHD with labile BP. ESRD Avoid beta flori therapy based on risk of bradycardia. Anti-failure and anti-anginal regimen with titration Vent support Abx per ID Continuous cardiac monitoring Anti-HTN regimen being titrated as needed. Transfuse PRBC with HD tomorrow. Tunneled dialysis cath placement Deni Willams MD Feb 08, 2020 02:50
[2020-02-08 04:00] VITALS: BP 139/79
[2020-02-08] MEDS: HYDROcodone/Acetamin 5/325 tab ORAL PRN ×2 (04:34→12:31)
[2020-02-08 05:36] LABS: INR 1.3 (0.9-1.1)
[2020-02-08 06:09] LABS: ALBUMIN 1.8 G/DL (3.4-5.0); ALBUMIN/GLOBULIN RATIO 0.4 (1.0-2.7); BILIRUBIN,TOTAL 0.4 MG/DL (0.2-1.0); CALCIUM 8.6 MG/DL (8.5-10.1); POTASSIUM 3.8 MMOL/L (3.5-5.1)
[2020-02-08 06:24] LABS: EOSINOPHILS % (AUTO) 2.3 % (0.0-3.0); HEMATOCRIT 25.4 % (37.0-47.0); HEMOGLOBIN 8.5 G/DL (12.0-16.0); LYMPHOCYTES % (AUTO) 17.6 % (20.0-45.0); MEAN CORPUSCULAR VOLUME 83 FL (80-99); MONOCYTES % (AUTO) 6.8 % (1.0-10.0); NEUTROPHILS % (AUTO) 72.3 % (45.0-75.0); PLATELET COUNT 412 K/UL (150-450); RED BLOOD COUNT 3.06 M/UL (4.20-5.40); RED CELL DISTRIBUTION WIDTH 14.7 % (11.6-14.8)
--- NOTE | 2020-02-08 07:40 | NUR ---
NURSE HAND-OFF REPORT: Important Events on Shift: NO BLEEDING NOTED FROM THE PERMACATH Patient Status: STABLE Diet: Pending Orders: FOR DIALYSIS TODAY Pending Results/Labs:CBC,BMP Pending MD notification: Latest Vital Signs: Temperature 97.9 , Pulse 62 , B/P 139 /69 , Respiratory Rate 18 , O2 SAT 96 , Mechanical Ventilator, O2 Flow Rate . Vital Sign Comment: EKG Rhythm: Sinus Rhythm Rhythm change?: N MD Notified?: Y -Dr. Екатерина HATFIELD Response: Order Received& Read Back Latest Chavarria Fall Score: 50 Fall Risk: High Risk Safety Measures: Call light Within Reach, Bed Alarm Zone 1, Side Rails Side Rails x2, Bed position Low and Locked. Fall Precautions: Yellow Socks Report given to ERASMO PATRICIO.
--- NOTE | 2020-02-08 07:47 | NUR ---
NURSE NOTES: Received report from SHEBA, RN, pt. in bed awake with eyes open- non-verbal, obtunded, no signs or symptoms of acute cardiac or respiratory distress noted, bed alarm on side rails up x's3 and safety brakes engaged, pt. appears to be tolerating current vent settings well- AC 14, TV 500, Fio2 at 40% and peep 5- no distress noted, pt. has g tube running Nepro at 35cc/hr-no residual noted, pt. has Norman draining to gravity, pt. appears clean and dry, aspiration and skin precautions observed, Left wrist 18G IV intact and patent, left femoral Charlie appears intact and dry, Right EJ PermCath appears clean and dry, repositioned and turned pt., safety measures continued, will continue with plan of care.
[2020-02-08 08:00] VITALS: BP 139/74
[2020-02-08] MEDS: Aspirin Baby 81mg GT SCH (08:28)
[2020-02-08] MEDS: Lactulose 20gm/30ml UDC GT SCH ×3 (08:28→17:04)
[2020-02-08] MEDS: Dakin's 0.125% Soln (Quarter Strength) 16oz TOPIC SCH (08:29)
[2020-02-08] MEDS: Amantadine 100mg cap GT SCH ×2 (08:29→17:04)
--- NOTE | 2020-02-08 10:10 | General Progress Note ---
Subjective ROS Limited/Unobtainable: No Allergies: Coded Allergies: No Known Allergies (Unverified , 10/10/17) Objective Last 24 Hour Vital Signs Date Time Temp Pulse Resp B/P (MAP) Pulse Ox O2 Delivery O2 Flow Rate FiO2 02/08/20 08:19 139/68 02/08/20 08:18 60 139/68 02/08/20 08:17 60 139/68 02/08/20 08:00 40 02/08/20 08:00 97.7 68 20 139/74 (95) 100 02/08/20 08:00 Mechanical Ventilator Mechanical Ventilator 02/08/20 07:51 60 02/08/20 07:07 62 18 40 02/08/20 06:19 139/69 02/08/20 05:04 97.9 02/08/20 04:01 66 02/08/20 04:00 Mechanical Ventilator Mechanical Ventilator 02/08/20 04:00 97.3 67 14 139/79 (99) 96 02/08/20 04:00 40 02/08/20 01:56 143/57 02/08/20 01:00 70 21 40 02/08/20 00:00 40 02/08/20 00:00 97.9 55 14 143/57 (85) 96 02/08/20 00:00 Mechanical Ventilator Mechanical Ventilator 02/07/20 23:50 56 02/07/20 20:41 98 116/63 02/07/20 20:00 66 02/07/20 20:00 40 02/07/20 20:00 Mechanical Ventilator Mechanical Ventilator 02/07/20 20:00 98.1 98 14 116/63 (80) 95 02/07/20 18:42 72 21 40 02/07/20 18:07 122/68 02/07/20 17:39 69 131/62 02/07/20 17:38 131/62 02/07/20 16:00 40 02/07/20 15:58 55 02/07/20 15:57 97.7 59 14 131/57 (81) 95 02/07/20 15:56 Mechanical Ventilator Mechanical Ventilator 02/07/20 15:13 58 16 40 02/07/20 12:00 98.1 60 14 130/57 (81) 97 02/07/20 12:00 Mechanical Ventilator Mechanical Ventilator 02/07/20 12:00 40 02/07/20 12:00 69 02/07/20 11:55 128/70 02/07/20 11:54 128/70 02/07/20 11:24 64 15 40 Intake and Output 02/07/20 02/08/20 19:00 07:00 Intake Total 685 ml 535 ml Output Total 400 ml 1000 ml Balance 285 ml -465 ml Free Water 300 ml 80 ml Tube Feeding 385 ml 455 ml Output Urine Total 400 ml 1000 ml # Bowel Movements 3 3 Laboratory Tests 02/08/20 05:10: White Blood Count 8.0, Red Blood Count 3.06L, Hemoglobin 8.5L, Hematocrit 25.4L, Mean Corpuscular Volume 83, Mean Corpuscular Hemoglobin 27.7, Mean Corpuscular Hemoglobin Concent 33.4, Red Cell Distribution Width 14.7, Platelet Count 412, Mean Platelet Volume 5.6L, Neutrophils (%) (Auto) 72.3, Lymphocytes (%) (Auto) 17.6L, Monocytes (%) (Auto) 6.8, Eosinophils (%) (Auto) 2.3, Basophils (%) (Auto) 1.0, Prothrombin Time 13.9H, Prothromb Time International Ratio 1.3H, Activated Partial Thromboplast Time 31, Sodium Level 131L, Potassium Level 3.8, Chloride Level 95L, Carbon Dioxide Level 29, Anion Gap 8, Blood Urea Nitrogen 84H, Creatinine 4.0H, Estimat Glomerular Filtration Rate 12.0, Glucose Level 92, Uric Acid 5.3, Calcium Level 8.6, Phosphorus Level 5.0H, Magnesium Level 3.0H, Total Bilirubin 0.4, Aspartate Amino Transf (AST/SGOT) 25, Alanine Aminotransferase (ALT/SGPT) 9L, Alkaline Phosphatase 156H, C-Reactive Protein, Quantitative 18.5H, Pro-B-Type Natriuretic Peptide > 60317L, Total Protein 6.7, Albumin 1.8L, Globulin 4.9, Albumin/Globulin Ratio 0.4L Height (Feet): 5 Height (Inches): 6.00 Weight (Pounds): 150 General Appearance: no apparent distress EENT: normal ENT inspection Neck: supple Cardiovascular: normal rate Respiratory/Chest: decreased breath sounds Abdomen: normal bowel sounds, non tender, soft Extremities: non-tender Assessment/Plan Problem List: (1) Hx of CABG ICD Codes: Z95.1 - Presence of aortocoronary bypass graft SNOMED: 400032437, 379718751 (2) History of tracheostomy ICD Codes: Z98.890 - Other specified postprocedural states SNOMED: 260954436, 384085548 (3) PEG (percutaneous endoscopic gastrostomy) status ICD Codes: Z93.1 - Gastrostomy status SNOMED: 903527509, 155812106 (4) S/P aortic dissection repair ICD Codes: Z98.890 - Other specified postprocedural states SNOMED: 169281352, 482888419 (5) Renal failure ICD Codes: N19 - Unspecified kidney failure SNOMED: 90145198, 259230188 (6) Anemia ICD Codes: D64.9 - Anemia, unspecified SNOMED: 289188951 Assessment/Plan: stable H&H repeat stool ob GTF some GT leak reglan topical Zinc oxide HD per nephrology persistent elevated lipase\ ct reviewed s/p one unit prbc cbc in am Inder Mccauley MD Feb 08, 2020 10:10
--- NOTE | 2020-02-08 10:25 | NUR ---
NURSE NOTES: per HD nurse she will be starting shorty- will not administer B/P medications.
--- NOTE | 2020-02-08 10:42 | NUR ---
NURSE NOTES: bed bath given linens changed, oral care provided, repositioned and turned pt- pt. appears to be tolerating current vent settings- aspiration precautions observed- HOB elevated, will continue to monitor pt. and with plan of care.
--- NOTE | 2020-02-08 10:44 | NUR ---
NURSE NOTES: wound care pictures taken and uploaded.
[2020-02-08 12:00] VITALS: BP 138/77
--- NOTE | 2020-02-08 12:18 | Pulmonology Progress Note ---
Subjective ROS Limited/Unobtainable: No Interval Events: None new Constitutional: Reports: no symptoms HEENT: Repors: no symptoms Respiratory: Reports: no symptoms Cardiovascular: Reports: no symptoms Gastrointestinal/Abdominal: Reports: no symptoms Allergies: Coded Allergies: No Known Allergies (Unverified , 10/10/17) All Systems: reviewed and negative except above Objective Last 24 Hour Vital Signs Date Time Temp Pulse Resp B/P (MAP) Pulse Ox O2 Delivery O2 Flow Rate FiO2 02/08/20 12:00 138/77 02/08/20 12:00 97.8 62 20 138/77 (97) 100 02/08/20 11:05 138/72 02/08/20 08:19 139/68 02/08/20 08:18 60 139/68 02/08/20 08:17 60 139/68 02/08/20 08:00 40 02/08/20 08:00 97.7 68 20 139/74 (95) 100 02/08/20 08:00 Mechanical Ventilator Mechanical Ventilator 02/08/20 07:51 60 02/08/20 07:07 62 18 40 02/08/20 06:19 139/69 02/08/20 05:04 97.9 02/08/20 04:01 66 02/08/20 04:00 Mechanical Ventilator Mechanical Ventilator 02/08/20 04:00 97.3 67 14 139/79 (99) 96 02/08/20 04:00 40 02/08/20 01:56 143/57 02/08/20 01:00 70 21 40 02/08/20 00:00 40 02/08/20 00:00 97.9 55 14 143/57 (85) 96 02/08/20 00:00 Mechanical Ventilator Mechanical Ventilator 02/07/20 23:50 56 02/07/20 20:41 98 116/63 02/07/20 20:00 66 02/07/20 20:00 40 02/07/20 20:00 Mechanical Ventilator Mechanical Ventilator 02/07/20 20:00 98.1 98 14 116/63 (80) 95 02/07/20 18:42 72 21 40 02/07/20 18:07 122/68 02/07/20 17:39 69 131/62 02/07/20 17:38 131/62 02/07/20 16:00 40 02/07/20 15:58 55 02/07/20 15:57 97.7 59 14 131/57 (81) 95 02/07/20 15:56 Mechanical Ventilator Mechanical Ventilator 02/07/20 15:13 58 16 40 Intake and Output 02/07/20 02/08/20 19:00 07:00 Intake Total 685 ml 535 ml Output Total 400 ml 1000 ml Balance 285 ml -465 ml Free Water 300 ml 80 ml Tube Feeding 385 ml 455 ml Output Urine Total 400 ml 1000 ml # Bowel Movements 3 3 General Appearance: no acute distress HEENT: normocephalic, other - trach Respiratory: chest wall non-tender, other - coarse lung sounds Cardiovascular: normal rate, regular rhythm Abdomen: soft, non tender Genitourinary: other - [place] Extremities: other - trace edema Laboratory Tests 02/08/20 05:10: White Blood Count 8.0, Red Blood Count 3.06L, Hemoglobin 8.5L, Hematocrit 25.4L, Mean Corpuscular Volume 83, Mean Corpuscular Hemoglobin 27.7, Mean Corpuscular Hemoglobin Concent 33.4, Red Cell Distribution Width 14.7, Platelet Count 412, Mean Platelet Volume 5.6L, Neutrophils (%) (Auto) 72.3, Lymphocytes (%) (Auto) 17.6L, Monocytes (%) (Auto) 6.8, Eosinophils (%) (Auto) 2.3, Basophils (%) (Auto) 1.0, Prothrombin Time 13.9H, Prothromb Time International Ratio 1.3H, Activated Partial Thromboplast Time 31, Sodium Level 131L, Potassium Level 3.8, Chloride Level 95L, Carbon Dioxide Level 29, Anion Gap 8, Blood Urea Nitrogen 84H, Creatinine 4.0H, Estimat Glomerular Filtration Rate 12.0, Glucose Level 92, Uric Acid 5.3, Calcium Level 8.6, Phosphorus Level 5.0H, Magnesium Level 3.0H, Total Bilirubin 0.4, Aspartate Amino Transf (AST/SGOT) 25, Alanine Amino transferase (ALT/SGPT) 9L, Alkaline Phosphatase 156H, C-Reactive Protein, Quantitative 18.5H, Pro-B-Type Natriuretic Peptide > 14333R, Total Protein 6.7, Albumin 1.8L, Globulin 4.9, Albumin/Globulin Ratio 0.4L Current Medications Medications (Trade) Dose Ordered Sig/Penny Route PRN Reason Start Time Stop Time Status Last Admin Dose Admin Acetaminophen (Tylenol) 500 mg Q6H PRN GT FEVER 01/21/20 20:45 02/20/20 20:44 01/29/20 02:01 Acetaminophen/ Hydrocodone Bitart ([place] 5/325) 1 tab Q6H PRN ORAL For Pain 02/07/20 11:00 02/14/20 10:59 02/08/20 04:34 Amantadine HCl (Symmetrel) 100 mg TWICE A DAY GT 01/31/20 18:00 03/01/20 17:59 02/08/20 08:29 Amlodipine Besylate (Norvasc) 5 mg BID GT 01/22/20 18:00 02/20/20 15:44 02/07/20 17:39 Aspirin (ASA) 81 mg DAILY GT 01/20/20 09:00 03/05/20 08:59 02/08/20 08:28 Atorvastatin Calcium (Lipitor) 10 mg BEDTIME GT 01/17/20 21:00 04/16/20 20:59 02/07/20 20:41 Chlorhexidine Gluconate (Ling-Hex 2%) 1 applic DAILY@1999 TOPIC 01/17/20 20:00 04/16/20 19:59 02/07/20 20:40 Dextrose (Dextrose 50%) 25 ml Q30M PRN IV Hypoglycemia 01/15/20 22:15 04/14/20 22:14 Dextrose (Dextrose 50%) 50 ml Q30M PRN IV Hypoglycemia 01/15/20 22:15 04/14/20 22:14 01/22/20 17:54 Docusate Sodium (Colace) 200 mg BIDPRN PRN GT Constipation 01/31/20 07:45 03/01/20 07:44 02/04/20 11:21 Epoetin Gelacio (Epoetin Gelacio(ESRD on dialysis)) 10,000 unit MON-MON-MON SUBQ 01/27/20 21:00 04/26/20 20:59 02/05/20 21:05 Hydralazine HCl (Apresoline) 25 mg Q6HR GT 01/26/20 18:15 04/25/20 18:14 02/08/20 06:19 Isosorbide Dinitrate (Isordil) 20 mg TID GT 01/25/20 09:00 02/19/20 08:59 02/07/20 17:38 Lactulose (Cephulac) 20 gm THREE TIMES A DAY GT 02/04/20 13:00 03/05/20 12:59 02/08/20 12:09 Lansoprazole (Prevacid) 30 mg BID GT 01/19/20 18:00 02/18/20 17:59 02/08/20 08:29 Metoclopramide HCl (Reglan) 5 mg Q6HR IVP 02/05/20 07:00 03/06/20 06:59 02/08/20 11:02 Metoprolol Tartrate (Lopressor) 25 mg Q12HR ORAL 01/27/20 21:00 04/22/20 20:59 02/07/20 20:41 Polyethylene Glycol (Miralax) 17 gm BEDTIME GT 02/04/20 21:00 03/05/20 20:59 02/07/20 20:41 Sodium Hypochlorite (Dakin's Quarter Strength) 1 applic DAILY TOPIC 01/30/20 09:00 02/29/20 08:59 02/08/20 08:29 Zinc Oxide (Zinc Oxide) 1 applic TIDPRN PRN TOPIC diogenes GT 01/16/20 13:15 04/15/20 13:14 01/16/20 14:55 Assessment/Plan Assessment/Plan Assessment/Plan 1. Large left effusion. - S/p thoracentesis; CXR better - pleural fluid pathology report: negative for malignant cell 2. Chronic respiratory failure. - Continue trach care - Cont AC mode - Currently saturating at 97% 3. Sepsis; improving 4. Anemia - improving - s/p transfusion - s/p Epogen - repeat stool OB pending per Dr. Mccauley s/p HD on broad-spectrum antibiotics. Pulmonary hygiene. DVT and GI prophylaxes. Dc planning in place FiO2 increased previously to 60%; now decreased to 40%; will wean further Elijah Stephen,Elijah Harrison MD Feb 08, 2020 12:17
--- NOTE | 2020-02-08 12:39 | Nephrology Progress Note ---
Assessment/Plan Problem List: (1) ARF (acute renal failure) (2) Pacemaker (3) Sepsis (4) Hyponatremia Assessment (1) JAVIER (acute kidney injury) (2) Renal failure (ARF), acute on chronic (3) Feeding by G-tube (4) Tracheostomy in place (5) Electrolyte imbalance, hyponatremia (6) Anemia, severe (7) Respiratory failure, acute and chronic (8) Elevated lipase, pancreatitis (9) Elevated troponin I (10) Sepsis Plan February 07: Labs reviewed. Due for dialysis today. Continue per consultants. February 06: Labs reviewed. Last dialysis February 03. Will postpone today's dialysis to tomorrow. Continue per current treatment plan. February 05: Labs reviewed. Last dialysis February 03. Will order dialysis tomorrow. Waiting for tunneled catheter placement. February 04: Labs reviewed. Dialyzed yesterday. With a plan for insertion of a tunneled dialysis catheter and discontinue left groin dialysis catheter afterwards. Check labs in a.m. Discussed with Dr. Dong. February 03: Labs reviewed. Due for dialysis today. Continue per consultants. February 02: Labs reviewed. Will order dialysis tomorrow. Continue per consultants. February 01: Labs reviewed. Creatinine gradually rising. Will dialyze as needed. Continue to monitor renal parameters. January 31: Last dialysis January 29. Labs reviewed. No need for dialysis today. Continue per current management. Hemodialysis as needed. Will check renal parameters and chemistries tomorrow. January 30: Patient was dialyzed yesterday. No labs drawn today. Continue to monitor renal parameters and dialyze as needed. Continue per consultants and PMD. January 29: Patient due for dialysis today. Today's can panel reviewed. C ontinue to monitor renal parameters and dialysis as needed. January 28: Patient last dialyzed January 26. No labs drawn today. Will order dialysis tomorrow. Check chemistry panel tomorrow. Continue per consultants. January 27: Patient was dialyzed yesterday . Labs were reviewed. Electrolytes within normal limit. Blood pressure stable. January 26: When visited the patient earlier today the patient was on dialysis. Tolerating well. Labs reviewed. Blood pressure stable. January 25: Dialysis for tomorrow. Labs reviewed. Hemoglobin remains low. Will adjust blood pressure medication. Hydralazine added to the regimen January 24: Last dialyzed January 22. Labs reviewed. Status quo. Will dialyze as needed. Low hemoglobin noted. Transfusion per PMD decision. Epogen started. \January 23: Dialyzed yesterday. Today's labs reviewed. Continue to monitor renal parameters and arrange for dialysis as needed. Continue per PMD. January 22: Seen earlier during dialysis. Labs reviewed. Medication list reviewed. Continue current management. January 21: Labs reviewed. Medication list reviewed. Next hemodialysis tomorrow. Blood pressure medication adjusted. January 20: Dialyzed yesterday. Labs reviewed. Continue per current management. Dialysis as needed. Add Norvasc to blood pressure regimen January 19: Due for dialysis today. Labs reviewed. Continue her current man agement. Continue to monitor renal parameters and electrolytes. January 18: Dialyzed yesterday. Labs reviewed. Renal parameters electrolytes much improved. Dialysis again tomorrow. Continue rest. January 17: Dialyzed this morning. Labs reviewed. Renal parameters and electrolyte abnormalities improved. Discussed with RN. Continue per consultants. January 16: Dialyzed yesterday. Labs improved. Next dialysis tomorrow. Continue per consultants. January 15: Patient to have dialysis catheter. Emergency dialysis for correction of uremia and electrolyte imbalances Antibiotics Transfusion Continue to monitor renal parameters Per orders Discussed with RN Subjective ROS Limited/Unobtainable: Yes Objective Objective Last 24 Hour Vital Signs Date Time Temp Pulse Resp B/P (MAP) Pulse Ox O2 Delivery O2 Flow Rate FiO2 02/08/20 12:00 Mechanical Ventilator Mechanical Ventilator 02/08/20 12:00 40 02/08/20 12:00 138/77 02/08/20 12:00 97.8 62 20 138/77 (97) 100 02/08/20 11:05 138/72 02/08/20 08:19 139/68 02/08/20 08:18 60 139/68 02/08/20 08:17 60 139/68 02/08/20 08:00 40 02/08/20 08:00 97.7 68 20 139/74 (95) 100 02/08/20 08:00 Mechanical Ventilator Mechanical Ventilator 02/08/20 07:51 60 02/08/20 07:07 62 18 40 02/08/20 06:19 139/69 02/08/20 05:04 97.9 02/08/20 04:01 66 02/08/20 04:00 Mechanical Ventilator Mechanical Ventilator 02/08/20 04:00 97.3 67 14 139/79 (99) 96 02/08/20 04:00 40 02/08/20 01:56 143/57 02/08/20 01:00 70 21 40 02/08/20 00:00 40 02/08/20 00:00 97.9 55 14 143/57 (85) 96 02/08/20 00:00 Mechanical Ventilator Mechanical Ventilator 02/07/20 23:50 56 02/07/20 20:41 98 116/63 02/07/20 20:00 66 02/07/20 20:00 40 02/07/20 20:00 Mechanical Ventilator Mechanical Ventilator 02/07/20 20:00 98.1 98 14 116/63 (80) 95 02/07/20 18:42 72 21 40 02/07/20 18:07 122/68 02/07/20 17:39 69 131/62 02/07/20 17:38 131/62 02/07/20 16:00 40 02/07/20 15:58 55 02/07/20 15:57 97.7 59 14 131/57 (81) 95 02/07/20 15:56 Mechanical Ventilator Mechanical Ventilator 02/07/20 15:13 58 16 40 Intake and Output 02/07/20 02/08/20 19:00 07:00 Intake Total 685 ml 535 ml Output Total 400 ml 1000 ml Balance 285 ml -465 ml Free Water 300 ml 80 ml Tube Feeding 385 ml 455 ml Output Urine Total 400 ml 1000 ml # Bowel Movements 3 3 Laboratory Tests 02/08/20 05:10: White Blood Count 8.0, Red Blood Count 3.06L, Hemoglobin 8.5L, Hematocrit 25.4L, Mean Corpuscular Volume 83, Mean Corpuscular Hemoglobin 27.7, Mean Corpuscular Hemoglobin Concent 33.4, Red Cell Distribution Width 14.7, Platelet Count 412, Mean Platelet Volume 5.6L, Neutrophils (%) (Auto) 72.3, Lymphocytes (%) (Auto) 17.6L, Monocytes (%) (Auto) 6.8, Eosinophils (%) (Auto) 2.3, Basophils (%) (Auto) 1.0, Prothrombin Time 13.9H, Prothromb Time International Ratio 1.3H, Activated Partial Thromboplast Time 31, Sodium Level 131L, Potassium Level 3.8, Chloride Level 95L, Carbon Dioxide Level 29, Anion Gap 8, Blood Urea Nitrogen 84H, Creatinine 4.0H, Estimat Glomerular Filtration Rate 12.0, Glucose Level 92, Uric Acid 5.3, Calcium Level 8.6, Phosphorus Level 5.0H, Magnesium Level 3.0H, Total Bilirubin 0.4, Aspartate Amino Transf (AST/SGOT) 25, Alanine Aminotransferase (ALT/SGPT) 9L, Alkaline Phosphatase 156H, C-Reactive Protein, Quantitative 18.5H, Pro-B-Type Natriuretic Peptide > 23779N, Total Protein 6.7, Albumin 1.8L, Globulin 4.9, Albumin/Globulin Ratio 0.4L Height (Feet): 5 Height (Inches): 6.00 Weight (Pounds): 150 General Appearance: no apparent distress EENT: other - Trach to vent Cardiovascular: normal rate Respiratory/Chest: decreased breath sounds Abdomen: distended Objective No change Johnny Houston MD Feb 08, 2020 12:39
--- NOTE | 2020-02-08 13:44 | Infectious Diseases Prog Note ---
Assessment/Plan 49yo F with: AF Sepsis Leukocytosis Hypoxia on vent Pneumonia c/b L pleural effusion (recurrent, prior determined to be transudative) - s/p thora 01/21, 1050cc removed Volume overload, BNP >35,0000, likely 2/2 progressive CKD --> ESRD ?Pancreatitis, Lipase >2000 Acute anemia to 5s CONS bacteremia, ?contaminant Aflutter w/ RVR 01/13 BCx 2/2 +S. epi COVID PCR neg Flu neg CXR: Large left pleural effusion. Bilateral interstitial and airspace infiltrates versus edema MRSA nares neg 01/16 BCx NTD 01/17 BCx /2 +Staph auricularis (skin colonizer) 01/18 Resp cx +MDR CRE PsA (S-gent, I-colistin, R-polyB) 01/18 C.dif neg 01/18 CXR: Similar opacification of the left hemithorax likely representing combination of pleural effusion with atelectasis versus pneumonia/edema. Decreased but persistent hazy opacity throughout the right lung may represent edema versus infectious/inflammatory process. 01/20 BCx NTD 01/21 L thora 1050 cc removed, cx NTD 01/25 Wound cx from Gtube site +CRE Kleb pna (arnett-R) and MDR PsA (colonizers) 01/26 CT A/P: Limited exam, due to severe diffuse anasarca. Ascites. Bilateral pleural effusions. Basilar pulmonary atelectatic changes and consolidation. Gastrostomy. Atrophic left kidney with a nephroureteral stents again demonstrated. Possible retrococcygeal decubitus changes. Correlate with clinical findings, consider MRI if there is concern for sacral osteomyelitis. Right hip intertrochanteric fracture, also previously demonstrated. Left femoral dialysis catheter. Nonspecific right lobe liver lesion is unchanged, not well- demonstrated. ctasia bordering on aneurysmal dilatation and possible chronic dissection of the distal thoracic aorta, also previously described. JAVIER on CKD On previous admission Sep-Oct 2019 required HD for short period Going to start HD this admission again R/o COVID / COVID PCR neg 12/29 neg at [facility] per report H/o UTI 10/15 u/a wbc 30-40, nit neg, leuk +3; ucx ESBL P. mirablis, ESBL M. morganii //20 u/a wbc tnct, nit neg, leuk +3; ucx >100k MDR P. stuarti (S Ceftriaxone, Meropenem) 10/07 u/a wbc tnct, nit neg, leuk ; ucx >100k VRE 10/15/19 u/a wbc tnct; ucx >100k ESBL P. stuarti (S ertapenem, aztreonam) H/o transudative pleural effusion 11/28 Sp Thora (w: 169, PMN: 2%, L: 49% , LDH: 57, prot 2.5); cx Neg H/o PNA 10/15/19 Resp cx ESBL P. mirabilis, MDR P.a. (S only to Gent) 09/22 Resp cx + MDR PsA (S-gent; I-colistin; R-levofloxacin, Zosyn, angelo) 09/16/19 Sp cx ESBL P. mirablis H/o PPM site (pocket) infection and pocket abscess 2ry to S. epi-11/2018, sp >6weeks IV vancomycin 11/27 SP ABBIE: no evidence for vegetation on any of the valves 11/26/18 SP PPM removal: OR findings:The fibrous capsule enclosing the generator was then opened and there was a [id number] amount of yellowish fluid drainage. The generator was then removed.Atrial and ventricular leads were detached. The necrotic tissue of the pocket was then removed and the pocket was flushed with an antibiotic solution. Capsule, wound tissue and lead tip cx: Neg 2d echo: no vegetation seen US chest: 4.6 x 3.4 x 0.9 cm hypoechoic/anechoic area overlying left chest pacemaker power pack. This could represent either a discrete fluid collection or a focal area of very edematous tissue. Infected fluid pocket also possible. 11/18 Bcx 3/4 S. epi; 11/20 Bcx neg; 11/24 Bcx Neg; 11/27 Bcx Neg CAD s/p CABG GERD/gastritis Afib HTN Dysphagia sp GT Aortic dissection s/p repair 2017 S/p PPM Parkinson's Disease Schizophrenia Anxiety COPD Chronic resp failure s/p trach Hx of tracheal bleeding CT resident ([facility]) VRE and MRSA colonized Plan: Cont to monitor off abx OK to d/c from ID standpoint Wound not treat CRE Kleb pna nor MDR PsA from G-tube cx, likely colonizer and no signs of active infection in that area 01/31 SP angelo/inh tobra #10 for pna 01/23 SP vanco IV #10 given CONS/GPC bacteremia 01/16 SP Zosyn #2 01/14 SP dex 10mg in ED 12/10 SP IV Gentamycin #10 12/07 SP Meropenem #10 12/01 SP IV Vancomycin #5 11/28 Sp Cefepime #2 and IV Gentamycin x1 Monitor CBC/CMP Monitor temp curve, hemodynamics Monitor resp status D/w RN Thank you for this consult. [facility] will continue to follow. Subjective Allergies: Coded Allergies: No Known Allergies (Unverified , 10/10/17) AF NAD on vent 40% PEEP 5 Off abx Objective Last 24 Hour Vital Signs Date Time Temp Pulse Resp B/P (MAP) Pulse Ox O2 Delivery O2 Flow Rate FiO2 02/08/20 13:01 97.8 02/08/20 12:00 Mechanical Ventilator Mechanical Ventilator 02/08/20 12:00 40 02/08/20 12:00 138/77 02/08/20 12:00 97.8 62 20 138/77 (97) 100 02/08/20 11:32 57 02/08/20 11:05 138/72 02/08/20 08:19 139/68 02/08/20 08:18 60 139/68 02/08/20 08:17 60 139/68 02/08/20 08:00 40 02/08/20 08:00 97.7 68 20 139/74 (95) 100 02/08/20 08:00 Mechanical Ventilator Mechanical Ventilator 02/08/20 07:51 60 02/08/20 07:07 62 18 40 02/08/20 06:19 139/69 02/08/20 05:04 97.9 02/08/20 04:01 66 02/08/20 04:00 Mechanical Ventilator Mechanical Ventilator 02/08/20 04:00 97.3 67 14 139/79 (99) 96 02/08/20 04:00 40 02/08/20 01:56 143/57 02/08/20 01:00 70 21 40 02/08/20 00:00 40 02/08/20 00:00 97.9 55 14 143/57 (85) 96 02/08/20 00:00 Mechanical Ventilator Mechanical Ventilator 02/07/20 23:50 56 02/07/20 20:41 98 116/63 02/07/20 20:00 66 02/07/20 20:00 40 02/07/20 20:00 Mechanical Ventilator Mechanical Ventilator 02/07/20 20:00 98.1 98 14 116/63 (80) 95 02/07/20 18:42 72 21 40 02/07/20 18:07 122/68 02/07/20 17:39 69 131/62 02/07/20 17:38 131/62 02/07/20 16:00 40 02/07/20 15:58 55 02/07/20 15:57 97.7 59 14 131/57 (81) 95 02/07/20 15:56 Mechanical Ventilator Mechanical Ventilator 02/07/20 15:13 58 16 40 Height (Feet): 5 Height (Inches): 6.00 Weight (Pounds): 150 Gen: NAD HEENT: NCAT, +trach CV: RRR Pulm: CTAB on vent Abd: Non-distended, +PEG with skin intact wo erythema or discharge, but brownish discharge on dressing Ext: No c/c/e Skin: No visible rashes Neuro: Awake, minimally interactive Lines: L fem HD cath Laboratory Tests Test 02/08/20 05:10 White Blood Count 8.0 K/UL (4.8-10.8) Red Blood Count 3.06 M/UL (4.20-5.40) L Hemoglobin 8.5 G/DL (12.0-16.0) L Hematocrit 25.4 % (37.0-47.0) L Mean Corpuscular Volume 83 FL (80-99) Mean Corpuscular Hemoglobin 27.7 PG (27.0-31.0) Mean Corpuscular Hemoglobin Concent 33.4 G/DL (32.0-36.0) Red Cell Distribution Width 14.7 % (11.6-14.8) Platelet Count 412 K/UL (150-450) Mean Platelet Volume 5.6 FL (6.5-10.1) L Neutrophils (%) (Auto) 72.3 % (45.0-75.0) Lymphocytes (%) (Auto) 17.6 % (20.0-45.0) L Monocytes (%) (Auto) 6.8 % (1.0-10.0) Eosinophils (%) (Auto) 2.3 % (0.0-3.0) Basophils (%) (Auto) 1.0 % (0.0-2.0) Prothrombin Time 13.9 SEC (9.30-11.50) H Prothromb Time International Ratio 1.3 (0.9-1.1) H Activated Partial Thromboplast Time 31 SEC (23-33) Sodium Level 131 MMOL/L (136-145) L Potassium Level 3.8 MMOL/L (3.5-5.1) Chloride Level 95 MMOL/L (98-107) L Carbon Dioxide Level 29 MMOL/L (21-32) Anion Gap 8 mmol/L (5-15) Blood Urea Nitrogen 84 mg/dL (7-18) H Creatinine 4.0 MG/DL (0.55-1.30) H Estimat Glomerular Filtration Rate 12.0 mL/min (>60) Glucose Level 92 MG/DL (74-106) Uric Acid 5.3 MG/DL (2.6-7.2) Calcium Level 8.6 MG/DL (8.5-10.1) Phosphorus Level 5.0 MG/DL (2.5-4.9) H Magnesium Level 3.0 MG/DL (1.8-2.4) H Total Bilirubin 0.4 MG/DL (0.2-1.0) Aspartate Amino Transf (AST/SGOT) 25 U/L (15-37) Alanine Aminotransferase (ALT/SGPT) 9 U/L (12-78) L Alkaline Phosphatase 156 U/L (46-116) H C-Reactive Protein, Quantitative 18.5 mg/dL (0.00-0.90) H Pro-B-Type Natriuretic Peptide > 62158 pg/mL (0-125) H Total Protein 6.7 G/DL (6.4-8.2) Albumin 1.8 G/DL (3.4-5.0) L Globulin 4.9 g/dL Albumin/Globulin Ratio 0.4 (1.0-2.7) L Current Medications Medications (Trade) Dose Ordered Sig/Penny Route PRN Reason Start Time Stop Time Status Last Admin Dose Admin Acetaminophen (Tylenol) 500 mg Q6H PRN GT FEVER 01/21/20 20:45 02/20/20 20:44 01/29/20 02:01 Acetaminophen/ Hydrocodone Bitart ([place] 5/325) 1 tab Q6H PRN ORAL For Pain 02/07/20 11:00 02/14/20 10:59 02/08/20 12:31 Amantadine HCl (Symmetrel) 100 mg TWICE A DAY GT 01/31/20 18:00 03/01/20 17:59 02/08/20 08:29 Amlodipine Besylate (Norvasc) 5 mg BID GT 01/22/20 18:00 02/20/20 15:44 02/07/20 17:39 Aspirin (ASA) 81 mg DAILY GT 01/20/20 09:00 03/05/20 08:59 02/08/20 08:28 Atorvastatin Calcium (Lipitor) 10 mg BEDTIME GT 01/17/20 21:00 04/16/20 20:59 02/07/20 20:41 Chlorhexidine Gluconate (Ling-Hex 2%) 1 applic DAILY@1999 TOPIC 01/17/20 20:00 04/16/20 19:59 02/07/20 20:40 Dextrose (Dextrose 50%) 25 ml Q30M PRN IV Hypoglycemia 01/15/20 22:15 04/14/20 22:14 Dextrose (Dextrose 50%) 50 ml Q30M PRN IV Hypoglycemia 01/15/20 22:15 04/14/20 22:14 01/22/20 17:54 Docusate Sodium (Colace) 200 mg BIDPRN PRN GT Constipation 01/31/20 07:45 03/01/20 07:44 02/04/20 11:21 Epoetin Gelacio (Epoetin Gelacio(ESRD on dialysis)) 10,000 unit MON-MON-MON SUBQ 01/27/20 21:00 04/26/20 20:59 02/05/20 21:05 Hydralazine HCl (Apresoline) 25 mg Q6HR GT 01/26/20 18:15 04/25/20 18:14 02/08/20 06:19 Isosorbide Dinitrate (Isordil) 20 mg TID GT 01/25/20 09:00 02/19/20 08:59 02/07/20 17:38 Lactulose (Cephulac) 20 gm THREE TIMES A DAY GT 02/04/20 13:00 03/05/20 12:59 02/08/20 12:09 Lansoprazole (Prevacid) 30 mg BID GT 01/19/20 18:00 02/18/20 17:59 02/08/20 08:29 Metoclopramide HCl (Reglan) 5 mg Q6HR IVP 02/05/20 07:00 03/06/20 06:59 02/08/20 11:02 Metoprolol Tartrate (Lopressor) 25 mg Q12HR ORAL 01/27/20 21:00 04/22/20 20:59 02/07/20 20:41 Polyethylene Glycol (Miralax) 17 gm BEDTIME GT 02/04/20 21:00 03/05/20 20:59 02/07/20 20:41 Sodium Hypochlorite (Dakin's Quarter Strength) 1 applic DAILY TOPIC 01/30/20 09:00 02/29/20 08:59 02/08/20 08:29 Zinc Oxide (Zinc Oxide) 1 applic TIDPRN PRN TOPIC diogenes GT 01/16/20 13:15 04/15/20 13:14 01/16/20 14:55 Ro Pack M.D. Feb 08, 2020 13:44
--- NOTE | 2020-02-08 13:46 | NUR ---
NURSE NOTES: per HD nurse- she has about an hour for Hemodialysis pt. in ICU- then has an emergency HD in SDU then she will do my patient. Per HD nurse not to administer any B/P medications.
--- NOTE | 2020-02-08 13:58 | Surgery Progress Note ---
Surgery Progress Note Subjective Procedure Performed Left femoral temporary hemodialysis catheter insertion Additional Comments no bleeding today dressings okay Objective Last 24 Hour Vital Signs Date Time Temp Pulse Resp B/P (MAP) Pulse Ox O2 Delivery O2 Flow Rate FiO2 02/08/20 13:01 97.8 02/08/20 12:00 Mechanical Ventilator Mechanical Ventilator 02/08/20 12:00 40 02/08/20 12:00 138/77 02/08/20 12:00 97.8 62 20 138/77 (97) 100 02/08/20 11:32 57 02/08/20 11:05 138/72 02/08/20 08:19 139/68 02/08/20 08:18 60 139/68 02/08/20 08:17 60 139/68 02/08/20 08:00 40 02/08/20 08:00 97.7 68 20 139/74 (95) 100 02/08/20 08:00 Mechanical Ventilator Mechanical Ventilator 02/08/20 07:51 60 02/08/20 07:07 62 18 40 02/08/20 06:19 139/69 02/08/20 05:04 97.9 02/08/20 04:01 66 02/08/20 04:00 Mechanical Ventilator Mechanical Ventilator 02/08/20 04:00 97.3 67 14 139/79 (99) 96 02/08/20 04:00 40 02/08/20 01:56 143/57 02/08/20 01:00 70 21 40 02/08/20 00:00 40 02/08/20 00:00 97.9 55 14 143/57 (85) 96 02/08/20 00:00 Mechanical Ventilator Mechanical Ventilator 02/07/20 23:50 56 02/07/20 20:41 98 116/63 02/07/20 20:00 66 02/07/20 20:00 40 02/07/20 20:00 Mechanical Ventilator Mechanical Ventilator 02/07/20 20:00 98.1 98 14 116/63 (80) 95 02/07/20 18:42 72 21 40 02/07/20 18:07 122/68 02/07/20 17:39 69 131/62 02/07/20 17:38 131/62 02/07/20 16:00 40 02/07/20 15:58 55 02/07/20 15:57 97.7 59 14 131/57 (81) 95 02/07/20 15:56 Mechanical Ventilator Mechanical Ventilator 02/07/20 15:13 58 16 40 I&O Intake and Output 02/07/20 02/08/20 19:00 07:00 Intake Total 685 ml 535 ml Output Total 400 ml 1000 ml Balance 285 ml -465 ml Free Water 300 ml 80 ml Tube Feeding 385 ml 455 ml Output Urine Total 400 ml 1000 ml # Bowel Movements 3 3 Dressing: saturated Cardiovascular: RSR Respiratory: decreased breath sounds Abdomen: soft, non-tender, present bowel sounds Extremities: no tenderness, no cyanosis Laboratory Tests Test 02/08/20 05:10 White Blood Count 8.0 K/UL (4.8-10.8) Red Blood Count 3.06 M/UL (4.20-5.40) L Hemoglobin 8.5 G/DL (12.0-16.0) L Hematocrit 25.4 % (37.0-47.0) L Mean Corpuscular Volume 83 FL (80-99) Mean Corpuscular Hemoglobin 27.7 PG (27.0-31.0) Mean Corpuscular Hemoglobin Concent 33.4 G/DL (32.0-36.0) Red Cell Distribution Width 14.7 % (11.6-14.8) Platelet Count 412 K/UL (150-450) Mean Platelet Volume 5.6 FL (6.5-10.1) L Neutrophils (%) (Auto) 72.3 % (45.0-75.0) Lymphocytes (%) (Auto) 17.6 % (20.0-45.0) L Monocytes (%) (Auto) 6.8 % (1.0-10.0) Eosinophils (%) (Auto) 2.3 % (0.0-3.0) Basophils (%) (Auto) 1.0 % (0.0-2.0) Prothrombin Time 13.9 SEC (9.30-11.50) H Prothromb Time International Ratio 1.3 (0.9-1.1) H Activated Partial Thromboplast Time 31 SEC (23-33) Sodium Level 131 MMOL/L (136-145) L Potassium Level 3.8 MMOL/L (3.5-5.1) Chloride Level 95 MMOL/L (98-107) L Carbon Dioxide Level 29 MMOL/L (21-32) Anion Gap 8 mmol/L (5-15) Blood Urea Nitrogen 84 mg/dL (7-18) H Creatinine 4.0 MG/DL (0.55-1.30) H Estimat Glomerular Filtration Rate 12.0 mL/min (>60) Glucose Level 92 MG/DL (74-106) Uric Acid 5.3 MG/DL (2.6-7.2) Calcium Level 8.6 MG/DL (8.5-10.1) Phosphorus Level 5.0 MG/DL (2.5-4.9) H Magnesium Level 3.0 MG/DL (1.8-2.4) H Total Bilirubin 0.4 MG/DL (0.2-1.0) Aspartate Amino Transf (AST/SGOT) 25 U/L (15-37) Alanine Aminotransferase (ALT/SGPT) 9 U/L (12-78) L Alkaline Phosphatase 156 U/L (46-116) H C-Reactive Protein, Quantitative 18.5 mg/dL (0.00-0.90) H Pro-B-Type Natriuretic Peptide > 91445 pg/mL (0-125) H Total Protein 6.7 G/DL (6.4-8.2) Albumin 1.8 G/DL (3.4-5.0) L Globulin 4.9 g/dL Albumin/Globulin Ratio 0.4 (1.0-2.7) L Plan Problems: (1) Dehydration (2) Acidosis (3) Depression (4) Pleural effusion (5) Respiratory failure (6) Schizophrenia (7) Hypoxia (8) UTI (urinary tract infection) (9) Pneumonia (10) NSTEMI (non-ST elevated myocardial infarction) (11) Tracheostomy in place (12) Feeding by G-tube (13) JAVIER (acute kidney injury) (14) Acute encephalopathy (15) Sacral decubitus ulcer, stage IV (16) Chronic respiratory failure (17) Ascites (18) Bacteremia (19) Hypernatremia (20) Proteinuria (21) Electrolyte imbalance (22) ACS (acute coronary syndrome) (23) Aortic dissection, thoracic (24) Respiratory failure, acute and chronic (25) JAVIER (acute kidney injury) (26) Abrasion of lip, initial encounter (27) COPD with exacerbation (28) Elevated alkaline phosphatase level (29) Renal failure (ARF), acute on chronic (30) HCAP (healthcare-associated pneumonia) (31) GT CLOGGED (32) Elevated lipase (33) Pancreatitis (34) Elevated troponin (35) Hypokalemia (36) Hyponatremia (37) Anemia (38) Renal failure (39) ARF (acute renal failure) (40) Pacemaker (41) Sepsis Assessment & Plan: leukocytosis anemia on HD renal insufficiency wounds addressed pancreatitis cont diet as tolerating trend labs lf'ts okay bleeding from permacath site suture used and hemostasis obtained plan removal of fem line if stable tomorrow pt presented on admission with Tracheostomy ,GT and Multiple Pressure Injuries. Skin assessment of skin under tracheal collar without evidence of skin breakdown. Peristomal GT site excoriated.Moderate amt of dark red sanguineous exudate. Full Thickness Sacral Pressure Injury with undermined borders (L)9 cm x (W)12cm x (D)1.8cm,Undermining clockwise8-9 by 2.2cm @1o'clock,undermining clockwise 1-4 by 1.9 @ 9'oclock Scattered necrotic tissue within wound bed. Borders are loose and necrotic with marginal erythema to outer perimeter of wound. NO elevation in skin temp noted periwound. Wound is malodorous. Small amt Brown exudate noted. Resolving Pressure Injury L Ischium(L)1.5cm x (W)1.5cm. Base of wound is 80% pink epithelial with an area that is moist and pink. NO odor or exudate noted. Bilat foot-drop noted. L Heel is boggy with non-blanchable erythema(L)4cm x (W)4cm. R heel is boggy with non-Blanchable erythema(L)5cm x (W)6cm. Tx.Plan: Cleanse sacral wound with Dakin's 0.125% annie. Loosely pack with Dakin's moistened Kerlix(Attention to undermined borders). Apply Moisture Barrier Paste periwound. Cover with Optifoam drsg. Change Daily and PRN. Apply Cavilon Skin Barrier to R and L Hels. Cover each heel with Optifoam drsg. Change every 7 days and prn. Reposition at least every 2hours or as tolerated. Off-load heels with Pillow. APM/JENNIFER MAttress overlay DAILY ESTIMATED NEEDS: Needs based on Critical care, wound, renal dysfunction 56 kg abw 28-33 kcals/kg [id number] total kcals W/ HD (1.5-2.0) g protein/kg 84-112 g total protein Fluid per MD NUTRITION DIAGNOSIS: * Swallowing difficulty R/T dysphagia, respiratory status as evidenced by vent dep via trach, GT Dep. * Increase kcal and pro needs r/t wound healing, renal dysfunction as evidenced by admitted w/ stage 4 sacral wound, admitted w/ JAVIER, now on HD. CURRENT TF: Nepro @ 40ml/hr x 24 hrs ENTERAL NUTRITION RECOMMENDATIONS: Nepro @ 40ml/hr x 24 hrs + Prosource 1pkt QD to provide 960ml, 1728kcal, 78g+11g prot, 698ml free water * Maintain current TF @ goal as tolerated * Add Prosource 1pkt QD to better meet increased protein needs (additional 11g prot) * Water flush per MD/ HOB over 30 degrees ADDITIONAL RECOMMENDATIONS: * Per SNF in NOV 2019: HT=63"/ Rec daily calibrated bedscale wt * Monitor for continuity of HD, next HD 02/03 * Rec phos binders- consistently elevated phos level * Wound care: add Nephrovite x 1, ZnSO4 220mg QD x 10 days Reynaldo BID via PEG (mix w/ 2-4 oz water); vit C per nephro * Monitor TF tolerance: elev lipase, slowly trending down * Add bowel regimen: no BM x 8 days, last BM on 01/25. (42) Hyponatremia Lane Saavedra Feb 08, 2020 13:58
--- NOTE | 2020-02-08 15:29 | NUR ---
CASE MANAGEMENT:REVIEW SI;SEPSIS. PNA. AC/CHR RENAL FAILURE(TEMPORARY HD CATH) TRACH/VENT DEPENDENT 97.9 57 20 138/77 100% TRACH/VENT FIO2 40% H/H 8.5/25.4 NA 131 BUN 84 CR 4.0 PHOS 5.0 MAG 3.0 ALP 156 CRP 18.5 BNP >32611 IS;NORCO GT Q6 PRN REGLAN IV Q6 LACTULOSE GT TID SYMMETREL GT BID ASA GT QD PREVACID GT BID SDU STATUS [facility]/T HD STATUS DC PLANNING TO [facility] PENDING EVONNE FROM INSURANCE
[2020-02-08 16:00] VITALS: BP 145/63
--- NOTE | 2020-02-08 19:40 | NUR ---
NURSE NOTES: Received report from ERASMO Ruiz. Pt is awake,oriented to name, not in distress. No facial grimacing noted. Trach to vent tolerating the following setting: AC14, TV 500, FiO2 400%, PEEP 5, and saturating 97%. Vital signs are stable. Pt is about to have hemodialysis. G-tube is intact and patent running Nepro @ 35cc/hr. Peripheral IV in R Forearm 22 G intact and L wrist 18G are intact and patent. R AJ tunneled cath has no bleeding noted, and dressing intact. Norman catheter is intact and patent. Will continue to monitor pt. Will continue with the plan of care. Addendum: 02/09/20 at 0717 by Shaniqua Krishnan RN RN Bed is locked and in lowest position, bed alarm on, call light is within reach. HOB is elevated at all times.
--- NOTE | 2020-02-08 19:44 | NUR ---
NURSE HAND-OFF REPORT: Important Events on Shift:none Patient Status: fair Diet: Nephro Pending Orders: Pending Results/Labs: Pending MD notification: Latest Vital Signs: Temperature 97.3 , Pulse 62 , B/P 145 /63 , Respiratory Rate 18 , O2 SAT 98 , Mechanical Ventilator, O2 Flow Rate . Vital Sign Comment: EKG Rhythm: Sinus Rhythm Rhythm change?: Y MD Notified?: MD Response: Latest Chavarria Fall Score: 50 Fall Risk: High Risk Safety Measures: Call light Within Reach, Bed Alarm Zone 1, Side Rails Side Rails x2, Bed position Low and Locked. Fall Precautions: Yellow Socks Report given to ERASMO Mcgovern - aware to f/u on HD today.
[2020-02-08 20:00] VITALS: BP 140/63
[2020-02-08] MEDS: Dyna-Hex 2% Top Sol 2oz TOPIC SCH (21:00)
[2020-02-08] MEDS: Miralax 17gm pkt GT SCH (21:00)
--- NOTE | 2020-02-08 22:00 | NUR ---
NURSE NOTES: Initial assessment done. Evening medications administered per order. Pt tolerating vent setting with O2 saturation 95-99%. Not in distress. Vital signs remain stable. Will continue to closely monitor pt.
--- NOTE | 2020-02-08 23:30 | NUR ---
NURSE NOTES: Bed bath with chlorhexidine given. Gown and linens changed. Pt is turned and repositioned. Oral care and suctioning done. Pt tolerated well. No facial grimacing noted. Will continue with the plan of care.
[2020-02-09] VITALS: BP 153/69
[2020-02-09] MEDS: HydrALAZINE 25mg tab GT SCH ×5 (00:11→23:03)
[2020-02-09] MEDS: Metoclopramide 10mg/2ml Inj IVP SCH ×5 (00:13→23:03)
[2020-02-09] MEDS: HYDROcodone/Acetamin 5/325 tab ORAL PRN (00:15)
[2020-02-09 04:00] VITALS: BP 147/86
--- NOTE | 2020-02-09 04:00 | NUR ---
NURSE NOTES: Pt is awake, not in distress. Vital signs remain stable. Tolerating vent setting, saturating 99-100%. Oral care and suctioning done. Will continue to closely monitor pt.
--- NOTE | 2020-02-09 04:13 | Cardiology Progress Note ---
Subjective DATE OF SERVICE: Feb 08, 2020 Scheduled for HD/UF today; tunneled cath placement pending. Remains in atrial fibrillation; rates controlled. Occasional PVC's - non- sustained BP range stable Full vent support via trach s/p left thorocentesis 01/22/20 S/P PRBC tx yesterday Objective Last 24 Hour Vital Signs Date Time Temp Pulse Resp B/P (MAP) Pulse Ox O2 Delivery O2 Flow Rate FiO2 02/09/20 01:30 62 17 40 02/09/20 00:11 149/66 02/09/20 00:00 Mechanical Ventilator Mechanical Ventilator 02/09/20 00:00 67 02/09/20 00:00 99.9 60 18 153/69 (97) 95 02/09/20 00:00 40 02/08/20 22:45 Mechanical Ventilator 94 02/08/20 20:00 62 02/08/20 20:00 60 23 40 02/08/20 20:00 99.7 63 18 140/63 (88) 97 02/08/20 20:00 Mechanical Ventilator Mechanical Ventilator 02/08/20 20:00 40 02/08/20 19:40 Mechanical Ventilator 97 02/08/20 17:05 62 145/63 02/08/20 17:04 145/63 02/08/20 17:04 145/63 02/08/20 16:00 40 02/08/20 16:00 97.3 65 18 145/63 (90) 98 02/08/20 16:00 Mechanical Ventilator Mechanical Ventilator 02/08/20 15:27 64 02/08/20 13:05 61 14 40 02/08/20 13:01 97.8 02/08/20 12:00 Mechanical Ventilator Mechanical Ventilator 02/08/20 12:00 40 02/08/20 12:00 138/77 02/08/20 12:00 97.8 62 20 138/77 (97) 100 02/08/20 11:32 57 02/08/20 11:05 138/72 02/08/20 08:19 139/68 02/08/20 08:18 60 139/68 02/08/20 08:17 60 139/68 02/08/20 08:00 40 02/08/20 08:00 97.7 68 20 139/74 (95) 100 02/08/20 08:00 Mechanical Ventilator Mechanical Ventilator 02/08/20 07:51 60 02/08/20 07:07 62 18 40 02/08/20 06:19 139/69 02/08/20 05:04 97.9 ROS: unchanged for 01/17/20 HEENT: Mechanically Ventilated, Thick Trach secretions RHYTHM: Afib LUNGS: bilateral rhonchi, trach site clean CARDIAC: normal S1 and S2, irregularly irregular, other - no rub ABDOMEN: normal bowel sounds, non tender, soft, G-Tube intact, other - left groin- no bleeding at old cath site EXTREMITIES: normal inspection, trace edema Laboratory Tests Test 02/08/20 05:10 White Blood Count 8.0 K/UL (4.8-10.8) Red Blood Count 3.06 M/UL (4.20-5.40) L Hemoglobin 8.5 G/DL (12.0-16.0) L Hematocrit 25.4 % (37.0-47.0) L Mean Corpuscular Volume 83 FL (80-99) Mean Corpuscular Hemoglobin 27.7 PG (27.0-31.0) Mean Corpuscular Hemoglobin Concent 33.4 G/DL (32.0-36.0) Red Cell Distribution Width 14.7 % (11.6-14.8) Platelet Count 412 K/UL (150-450) Mean Platelet Volume 5.6 FL (6.5-10.1) L Neutrophils (%) (Auto) 72.3 % (45.0-75.0) Lymphocytes (%) (Auto) 17.6 % (20.0-45.0) L Monocytes (%) (Auto) 6.8 % (1.0-10.0) Eosinophils (%) (Auto) 2.3 % (0.0-3.0) Basophils (%) (Auto) 1.0 % (0.0-2.0) Prothrombin Time 13.9 SEC (9.30-11.50) H Prothromb Time International Ratio 1.3 (0.9-1.1) H Activated Partial Thromboplast Time 31 SEC (23-33) Sodium Level 131 MMOL/L (136-145) L Potassium Level 3.8 MMOL/L (3.5-5.1) Chloride Level 95 MMOL/L (98-107) L Carbon Dioxide Level 29 MMOL/L (21-32) Anion Gap 8 mmol/L (5-15) Blood Urea Nitrogen 84 mg/dL (7-18) H Creatinine 4.0 MG/DL (0.55-1.30) H Estimat Glomerular Filtration Rate 12.0 mL/min (>60) Glucose Level 92 MG/DL (74-106) Uric Acid 5.3 MG/DL (2.6-7.2) Calcium Level 8.6 MG/DL (8.5-10.1) Phosphorus Level 5.0 MG/DL (2.5-4.9) H Magnesium Level 3.0 MG/DL (1.8-2.4) H Total Bilirubin 0.4 MG/DL (0.2-1.0) Aspartate Amino Transf (AST/SGOT) 25 U/L (15-37) Alanine Aminotransferase (ALT/SGPT) 9 U/L (12-78) L Alkaline Phosphatase 156 U/L (46-116) H C-Reactive Protein, Quantitative 18.5 mg/dL (0.00-0.90) H Pro-B-Type Natriuretic Peptide > 13095 pg/mL (0-125) H Total Protein 6.7 G/DL (6.4-8.2) Albumin 1.8 G/DL (3.4-5.0) L Globulin 4.9 g/dL Albumin/Globulin Ratio 0.4 (1.0-2.7) L Assessment/Plan Assessment/Plan Chronic respiratory failure with trach Severe sepsis PAFib with rapid ventric response. Ischemic cardiomyopathy - hx CABG and s/p NSTEMI in Dec 2019. Conduction system disease of the heart Hx of permanent pacemaker explant Acute on chronic systolic and diastolic CHF Pleural effusion Anemia Hypertension/HHD with labile BP. ESRD Avoid beta flori therapy based on risk of bradycardia. Anti-failure and anti-anginal regimen with titration Vent support Abx per ID Continuous cardiac monitoring Anti-HTN regimen being titrated as needed. Transfuse PRBC as needed Tunneled dialysis cath placement Deni Willams MD Feb 09, 2020 04:13
--- NOTE | 2020-02-09 07:10 | NUR ---
NURSE NOTES: Received report from ERASMO Mcgovern. Patient is on bed, sleeping, no signs of grimacing and distress noted. Patient has a trache S6, AC 14, TV 500, FiO2 40%, PEEP 5, tolerating well. Patient has a GT, patent, intact, running nepro at 35 cc/hr. Patient has a raymond for retention, patent, and intact. R EJ tunneled inserted on 02/06 for hemodialysis. R FA 22 g and L wrist 22 g IV sites, patent, intact, saline locked. HOB elevated, bed on lowest position, locked, side rails up, call light within reach. Patient will continue to be monitored.
--- NOTE | 2020-02-09 07:14 | NUR ---
NURSE HAND-OFF REPORT: Important Events on Shift:None Patient Status: Full code Diet: Nepro @ 35cc/hr Pending Orders: N Pending Results/Labs:N Pending MD notification:N Latest Vital Signs: Temperature 98.6 , Pulse 62 , B/P 146 /71 , Respiratory Rate 18 , O2 SAT 96 , Mechanical Ventilator, O2 Flow Rate . Vital Sign Comment: stable EKG Rhythm: Sinus Rhythm Rhythm change?: N MD Notified?: N -Dr. Екатерина HATFIELD Response: Order Received& Read Back Latest [place] Fall Score: 50 Fall Risk: High Risk Safety Measures: Call light Within Reach, Bed Alarm Zone 1, Side Rails Side Rails x2, Bed position Low and Locked. Fall Precautions: Yellow Socks Report given to ERASMO Myers.
[2020-02-09 08:00] VITALS: BP 138/76
[2020-02-09] MEDS: Amantadine 100mg cap GT SCH ×2 (08:18→17:39)
[2020-02-09] MEDS: Lactulose 20gm/30ml UDC GT SCH ×3 (08:20→17:39)
[2020-02-09] MEDS: Aspirin Baby 81mg GT SCH (08:20)
[2020-02-09] MEDS: Dakin's 0.125% Soln (Quarter Strength) 16oz TOPIC SCH (08:21)
[2020-02-09 09:46] LABS: BASOPHILS % (AUTO) 0.7 % (0.0-2.0); EOSINOPHILS % (AUTO) 1.5 % (0.0-3.0); HEMATOCRIT 25.3 % (37.0-47.0); HEMOGLOBIN 8.8 G/DL (12.0-16.0); LYMPHOCYTES % (AUTO) 16.9 % (20.0-45.0); MEAN CORPUSCULAR VOLUME 80 FL (80-99); MONOCYTES % (AUTO) 6.8 % (1.0-10.0); NEUTROPHILS % (AUTO) 74.2 % (45.0-75.0); PLATELET COUNT 388 K/UL (150-450); RED BLOOD COUNT 3.18 M/UL (4.20-5.40); RED CELL DISTRIBUTION WIDTH 16.8 % (11.6-14.8); WHITE BLOOD COUNT 7.8 K/UL (4.8-10.8)
--- NOTE | 2020-02-09 09:46 | Hematology/Onc Progress Note ---
Assessment/Plan Assessment/Plan IM note Covering for Dr. Dong Assessment and Recs # Leukocytosis, now with pna v other process --> Cxr: : Large left pleural effusion, Bilateral interstitial and airspace infiltrates versus edema --> wbc 16-->26->30-->10->8 --> ABX zosyn-->angelo/vanc-->angelo/tobra->off --> ID recs are noted --> smear has been reviewed # Anemia of chronic disease due to underlying chronic medical issues, multifactorial --> Anemia workup has been reviewed, cw acd --> No evidence of hemolysis is noted, peripheral smear has been reviewed. --> Hgb goal >7. Transfuse prn. --> Epogen required, to continue --> Medications have been reviewed --> low threshold for gi evaluation in case has occult + --> hgb 7.1-->7.8-->>>5.9-->7.3-->7-->7.2-->7.9-->8.6-->8.2-->8.5-->7 --> 1 unit prbc10/17, 2 units 12/3. 1225 --> gi eval as needed # Coagulopathy with inr 1.5 --> consider vit k/ffp as needed preprocedure --> labs noted # JAVIER initially >2 --> on ivfs --> per renal # Elevated d-dimer --> venous duplex ordered-->reviewed, is neg --> in prior neg # Dysphagia s/p peg --> as per gi # Thoracic aortic dissection --> s/p repair early 2017 # Chronic Resp failure -> s/p trach/vent # Psychiatric history on ativan/haldol # [place] resident # Dvt ppx --> scds The timing of this note does not necessarily reflect the time of the patient was seen. Greatly appreciate consultation. Subjective HEENT: Denies: no symptoms, eye pain, blurred vision, tearing, double vision, ear pain, ear discharge, nose pain, nose congestion, throat pain, throat swelling, mouth pain, mouth swelling, other Cardiovascular: Denies: no symptoms, chest pain, edema, irregular heart rate, lightheadedness, palpitations, syncope, other Gastrointestinal/Abdominal: Denies: no symptoms, abdomen distended, abdominal pain, black stools, tarry stools, blood in stool, constipated, diarrhea, difficulty swallowing, nausea, poor appetite, poor fluid intake, rectal bleeding, vomiting, other Genitourinary: Denies: no symptoms, burning, discharge, frequency, flank pain, hematuria, incontinence, pain, urgency, other Neurologic/Psychiatric: Denies: no symptoms, anxiety, depressed, emotional problems, headache, numbness, paresthesia, pre-existing deficit, seizure, tingling, tremors, weakness, other Endocrine: Denies: no symptoms, excessive sweating, flushing, intolerance to co ld, intolerance to heat, increased hunger, increased thirst, increased urine, unexplained weight gain, unexplained weight loss, other Hematologic/Lymphatic: Denies: no symptoms, anemia, easy bleeding, easy bruising, adenopathy, other Allergies: Coded Allergies: No Known Allergies (Unverified , 10/10/17) Subjective 01/16 left femoral [address]den in place, on vent, icu, hgb better 01/18 labs are noted, wbc 30, hgb 7, may require prbc today 01/27 is off amio, on epoogen, hgb reviewed, 7.2, transfuse if unstable 01/28 pain meds given, some foaming around mouth, no bleeding 01/29 hd was done yesterday, no bleedig, cbc pending, asa given 01/30 labs are noted, no bleeding, labs reviewed, pending meds 02/01 labs are noted, no bleeding, meds reviewed, no f/c, trach/vent 02/02 labs noted, no night sweats, t/v, labs ordered for am 02/03 labs reviewed, meds noted, no bleeding, hgb 7.9 02/04 meds noted, no bleeding, labs reviewed, hgb 8 02/05 labs are pending, some secretions are noted, no bleeding 02/[address] still with bleed dw Rn, will place seal/further pressure 02/08 labs reviewed, grimacing, meds noted, vitals noted, seen by cards Objective Objective Current Medications Medications (Trade) Dose Ordered Sig/Penny Route PRN Reason Start Time Stop Time Status Last Admin Dose Admin Acetaminophen (Tylenol) 500 mg Q6H PRN GT FEVER 01/21/20 20:45 02/20/20 20:44 01/29/20 02:01 Acetaminophen/ Hydrocodone Bitart ([place] 5/325) 1 tab Q6H PRN ORAL For Pain 02/07/20 11:00 02/14/20 10:59 02/09/20 00:15 Amantadine HCl (Symmetrel) 100 mg TWICE A DAY GT 01/31/20 18:00 03/01/20 17:59 02/09/20 08:18 Amlodipine Besylate (Norvasc) 5 mg BID GT 01/22/20 18:00 02/20/20 15:44 02/09/20 08:18 Aspirin (ASA) 81 mg DAILY GT 01/20/20 09:00 03/05/20 08:59 02/09/20 08:20 Atorvastatin Calcium (Lipitor) 10 mg BEDTIME GT 01/17/20 21:00 04/16/20 20:59 02/08/20 21:27 Chlorhexidine Gluconate (Ling-Hex 2%) 1 applic DAILY@1999 TOPIC 01/17/20 20:00 04/16/20 19:59 02/08/20 21:00 Dextrose (Dextrose 50%) 25 ml Q30M PRN IV Hypoglycemia 01/15/20 22:15 04/14/20 22:14 Dextrose (Dextrose 50%) 50 ml Q30M PRN IV Hypoglycemia 01/15/20 22:15 04/14/20 22:14 01/22/20 17:54 Docusate Sodium (Colace) 200 mg BIDPRN PRN GT Constipation 01/31/20 07:45 03/01/20 07:44 02/04/20 11:21 Epoetin Gelacio (Epoetin Gelacio(ESRD on dialysis)) 10,000 unit MON-MON-MON SUBQ 01/27/20 21:00 04/26/20 20:59 02/05/20 21:05 Hydralazine HCl (Apresoline) 25 mg Q6HR GT 01/26/20 18:15 04/25/20 18:14 02/09/20 05:33 Isosorbide Dinitrate (Isordil) 20 mg TID GT 01/25/20 09:00 02/19/20 08:59 12/27/20 08:20 Lactulose (Cephulac) 20 gm THREE TIMES A DAY GT 02/04/20 13:00 03/05/20 12:59 02/09/20 08:20 Lansoprazole (Prevacid) 30 mg BID GT 01/19/20 18:00 02/18/20 17:59 02/09/20 08:15 Metoclopramide HCl (Reglan) 5 mg Q6HR IVP 02/05/20 07:00 03/06/20 06:59 02/09/20 05:33 Metoprolol Tartrate (Lopressor) 25 mg Q12HR ORAL 01/27/20 21:00 04/22/20 20:59 02/09/20 08:19 Polyethylene Glycol (Miralax) 17 gm BEDTIME GT 02/04/20 21:00 03/05/20 20:59 02/07/20 20:41 Sodium Hypochlorite (Dakin's Quarter Strength) 1 applic DAILY TOPIC 01/30/20 09:00 02/29/20 08:59 02/09/20 08:21 Zinc Oxide (Zinc Oxide) 1 applic TIDPRN PRN TOPIC diogenes GT 01/16/20 13:15 04/15/20 13:14 01/16/20 14:55 Last 24 Hour Vital Signs Date Time Temp Pulse Resp B/P (MAP) Pulse Ox O2 Delivery O2 Flow Rate FiO2 02/09/20 08:20 145/64 02/09/20 08:19 68 145/64 02/09/20 08:18 68 145/64 02/09/20 07:21 66 14 40 02/09/20 05:33 146/71 02/09/20 04:00 Mechanical Ventilator Mechanical Ventilator 02/09/20 04:00 40 02/09/20 04:00 62 02/09/20 04:00 98.6 73 18 147/86 (106) 96 02/09/20 01:30 62 17 40 02/09/20 00:11 149/66 02/09/20 00:00 Mechanical Ventilator Mechanical Ventilator 02/09/20 00:00 67 02/09/20 00:00 99.9 60 18 153/69 (97) 95 02/09/20 00:00 40 02/08/20 22:45 Mechanical Ventilator 94 02/08/20 20:00 62 02/08/20 20:00 60 23 40 02/08/20 20:00 99.7 63 18 140/63 (88) 97 02/08/20 20:00 Mechanical Ventilator Mechanical Ventilator 02/08/20 20:00 40 02/08/20 19:40 Mechanical Ventilator 97 02/08/20 17:05 62 145/63 02/08/20 17:04 145/63 02/08/20 17:04 145/63 02/08/20 16:00 40 02/08/20 16:00 97.3 65 18 145/63 (90) 98 02/08/20 16:00 Mechanical Ventilator Mechanical Ventilator 02/08/20 15:27 64 02/08/20 13:05 61 14 40 02/08/20 13:01 97.8 02/08/20 12:00 Mechanical Ventilator Mechanical Ventilator 02/08/20 12:00 40 02/08/20 12:00 138/77 02/08/20 12:00 97.8 62 20 138/77 (97) 100 02/08/20 11:32 57 02/08/20 11:05 138/72 02/08/20 08:19 139/68 02/08/20 08:18 60 139/68 02/08/20 08:17 60 139/68 02/08/20 08:00 40 02/08/20 08:00 97.7 68 20 139/74 (95) 100 02/08/20 08:00 Mechanical Ventilator Mechanical Ventilator 02/08/20 07:51 60 02/08/20 07:07 62 18 40 02/08/20 06:19 139/69 02/08/20 05:04 97.9 02/08/20 04:01 66 02/08/20 04:00 Mechanical Ventilator Mechanical Ventilator 02/08/20 04:00 97.3 67 14 139/79 (99) 96 02/08/20 04:00 40 02/08/20 01:56 143/57 02/08/20 01:00 70 21 40 02/08/20 00:00 40 02/08/20 00:00 97.9 55 14 143/57 (85) 96 02/08/20 00:00 Mechanical Ventilator Mechanical Ventilator 02/07/20 23:50 56 02/07/20 20:41 98 116/63 02/07/20 20:00 66 02/07/20 20:00 40 02/07/20 20:00 Mechanical Ventilator Mechanical Ventilator 02/07/20 20:00 98.1 98 14 116/63 (80) 95 02/07/20 18:42 72 21 40 02/07/20 18:07 122/68 02/07/20 17:39 69 131/62 02/07/20 17:38 131/62 02/07/20 16:00 40 02/07/20 15:58 55 02/07/20 15:57 97.7 59 14 131/57 (81) 95 02/07/20 15:56 Mechanical Ventilator Mechanical Ventilator 02/07/20 15:13 58 16 40 02/07/20 12:00 98.1 60 14 130/57 (81) 97 02/07/20 12:00 Mechanical Ventilator Mechanical Ventilator 02/07/20 12:00 40 02/07/20 12:00 69 02/07/20 11:55 128/70 02/07/20 11:54 128/70 02/07/20 11:24 64 15 40 Intake and Output 02/08/20 02/09/20 19:00 07:00 Intake Total 435 ml 525 ml Output Total 450 ml 375 ml Balance -15 ml 150 ml Free Water 50 ml 140 ml Tube Feeding 385 ml 385 ml Output Urine Total 450 ml 375 ml # Bowel Movements 4 1 Labs Test 02/07/20 05:10 02/08/20 05:10 02/09/20 08:15 White Blood Count 7.1 K/UL (4.8-10.8) 8.0 K/UL (4.8-10.8) Red Blood Count 2.52 M/UL (4.20-5.40) 3.06 M/UL (4.20-5.40) Hemoglobin 7.0 G/DL (12.0-16.0) 8.5 G/DL (12.0-16.0) Hematocrit 21.5 % (37.0-47.0) 25.4 % (37.0-47.0) Mean Corpuscular Volume 86 FL (80-99) 83 FL (80-99) Mean Corpuscular Hemoglobin 27.7 PG (27.0-31.0) 27.7 PG (27.0-31.0) Mean Corpuscular Hemoglobin Concent 32.4 G/DL (32.0-36.0) 33.4 G/DL (32.0-36.0) Red Cell Distribution Width 14.8 % (11.6-14.8) 14.7 % (11.6-14.8) Platelet Count 400 K/UL (150-450) 412 K/UL (150-450) Mean Platelet Volume 5.6 FL (6.5-10.1) 5.6 FL (6.5-10.1) Neutrophils (%) (Auto) % (45.0-75.0) 72.3 % (45.0-75.0) Lymphocytes (%) (Auto) % (20.0-45.0) 17.6 % (20.0-45.0) Monocytes (%) (Auto) % (1.0-10.0) 6.8 % (1.0-10.0) Eosinophils (%) (Auto) % (0.0-3.0) 2.3 % (0.0-3.0) Basophils (%) (Auto) % (0.0-2.0) 1.0 % (0.0-2.0) Sodium Level 136 MMOL/L (136-145) 131 MMOL/L (136-145) Potassium Level 3.6 MMOL/L (3.5-5.1) 3.8 MMOL/L (3.5-5.1) Chloride Level 98 MMOL/L (98-107) 95 MMOL/L (98-107) Carbon Dioxide Level 30 MMOL/L (21-32) 29 MMOL/L (21-32) Anion Gap 8 mmol/L (5-15) 8 mmol/L (5-15) Blood Urea Nitrogen 81 mg/dL (7-18) 84 mg/dL (7-18) Creatinine 3.8 MG/DL (0.55-1.30) 4.0 MG/DL (0.55-1.30) Estimat Glomerular Filtration Rate 12.8 mL/min (>60) 12.0 mL/min (>60) Glucose Level 86 MG/DL (74-106) 92 MG/DL (74-106) Uric Acid 5.2 MG/DL (2.6-7.2) 5.3 MG/DL (2.6-7.2) Calcium Level 8.5 MG/DL (8.5-10.1) 8.6 MG/DL (8.5-10.1) Phosphorus Level 4.8 MG/DL (2.5-4.9) 5.0 MG/DL (2.5-4.9) Magnesium Level 2.9 MG/DL (1.8-2.4) 3.0 MG/DL (1.8-2.4) Total Bilirubin 0.4 MG/DL (0.2-1.0) 0.4 MG/DL (0.2-1.0) Aspartate Amino Transf (AST/SGOT) 27 U/L (15-37) 25 U/L (15-37) Alanine Aminotransferase (ALT/SGPT) 9 U/L (12-78) 9 U/L (12-78) Alkaline Phosphatase 143 U/L (46-116) 156 U/L (46-116) C-Reactive Protein, Quantitative 16.9 mg/dL (0.00-0.90) 18.5 mg/dL (0.00-0.90) Pro-B-Type Natriuretic Peptide > 37069 pg/mL (0-125) > 58371 pg/mL (0-125) Total Protein 6.3 G/DL (6.4-8.2) 6.7 G/DL (6.4-8.2) Albumin 1.8 G/DL (3.4-5.0) 1.8 G/DL (3.4-5.0) Globulin 4.5 g/dL 4.9 g/dL Albumin/Globulin Ratio 0.4 (1.0-2.7) 0.4 (1.0-2.7) Prothrombin Time 13.9 SEC (9.30-11.50) Prothromb Time International Ratio 1.3 (0.9-1.1) Activated Partial Thromboplast Time 31 SEC (23-33) Height (Feet): 5 Height (Inches): 6.00 Weight (Pounds): 150 Objective Physical Exam: Vitals: reviewed General: NAD HEENT: nc, at Neck: supple ++trach/vent Chest: clear breath sounds bilaterally Cardiovascular: RRR, no s3, s4 Abdomen: soft, nontender, nd +gtube Extremities: no cce, normal range of motion Neuro: alert Kleynberg,Evan L. MD Feb 09, 2020 09:46
--- NOTE | 2020-02-09 10:21 | Pulmonology Progress Note ---
Subjective ROS Limited/Unobtainable: Yes Interval Events: None new Constitutional: Reports: no symptoms HEENT: Repors: no symptoms Respiratory: Reports: no symptoms Cardiovascular: Reports: no symptoms Gastrointestinal/Abdominal: Reports: no symptoms Allergies: Coded Allergies: No Known Allergies (Unverified , 10/10/17) All Systems: reviewed and negative except above Objective Last 24 Hour Vital Signs Date Time Temp Pulse Resp B/P (MAP) Pulse Ox O2 Delivery O2 Flow Rate FiO2 02/09/20 08:20 145/64 02/09/20 08:19 68 145/64 02/09/20 08:18 68 145/64 02/09/20 08:00 40 02/09/20 08:00 Mechanical Ventilator Mechanical Ventilator 02/09/20 08:00 98.6 66 14 138/76 (96) 98 02/09/20 07:56 66 02/09/20 07:21 66 14 40 02/09/20 05:33 146/71 02/09/20 04:00 Mechanical Ventilator Mechanical Ventilator 02/09/20 04:00 40 02/09/20 04:00 62 02/09/20 04:00 98.6 73 18 147/86 (106) 96 02/09/20 01:30 62 17 40 02/09/20 00:11 149/66 02/09/20 00:00 Mechanical Ventilator Mechanical Ventilator 02/09/20 00:00 67 02/09/20 00:00 99.9 60 18 153/69 (97) 95 02/09/20 00:00 40 02/08/20 22:45 Mechanical Ventilator 94 02/08/20 20:00 62 02/08/20 20:00 60 23 40 02/08/20 20:00 99.7 63 18 140/63 (88) 97 02/08/20 20:00 Mechanical Ventilator Mechanical Ventilator 02/08/20 20:00 40 02/08/20 19:40 Mechanical Ventilator 97 02/08/20 17:05 62 145/63 02/08/20 17:04 145/63 02/08/20 17:04 145/63 02/08/20 16:00 40 02/08/20 16:00 97.3 65 18 145/63 (90) 98 02/08/20 16:00 Mechanical Ventilator Mechanical Ventilator 02/08/20 15:27 64 02/08/20 13:05 61 14 40 02/08/20 13:01 97.8 02/08/20 12:00 Mechanical Ventilator Mechanical Ventilator 02/08/20 12:00 40 02/08/20 12:00 138/77 02/08/20 12:00 97.8 62 20 138/77 (97) 100 02/08/20 11:32 57 02/08/20 11:05 138/72 Intake and Output 02/08/20 02/09/20 19:00 07:00 Intake Total 435 ml 525 ml Output Total 450 ml 375 ml Balance -15 ml 150 ml Free Water 50 ml 140 ml Tube Feeding 385 ml 385 ml Output Urine Total 450 ml 375 ml # Bowel Movements 4 1 General Appearance: no acute distress HEENT: normocephalic, other - trach Respiratory: chest wall non-tender, other - coarse lung sounds Cardiovascular: normal rate, regular rhythm Abdomen: soft, non tender Genitourinary: other - [place] Extremities: other - trace edema Laboratory Tests 02/09/20 08:15: White Blood Count 7.8, Red Blood Count 3.18L, Hemoglobin 8.8L, Hematocrit 25.3L, Mean Corpuscular Volume 80, Mean Corpuscular Hemoglobin 27.8, Mean Corpuscular Hemoglobin Concent 34.9, Red Cell Distribution Width 16.8H, Platelet Count 388, Mean Platelet Volume 5.7L, Neutrophils (%) (Auto) 74.2, Lymphocytes (%) (Auto) 16.9L, Monocytes (%) (Auto) 6.8, Eosinophils (%) (Auto) 1.5, Basophils (%) (Auto) 0.7, Sodium Level [Pending], Potassium Level [Pending], Chloride Level [Pending], Carbon Dioxide Level [Pending], Blood Urea Nitrogen [Pending], Creatinine [Pending], Estimat Glomerular Filtration Rate [Pending], Glucose Level [Pending], Uric Acid [Pending], Calcium Level [Pending], Phosphorus Level [Pending], Total Bilirubin [Pending], Aspartate Amino Transf (AST/SGOT) [Pending], Alanine Aminotransferase (ALT/SGPT) [Pending], Alkaline Phosphatase [Pending], C-Reactive Protein, Quantitative [Pending], Pro-B-Type Natriuretic Peptide [Pending], Total Protein [Pending], Albumin [Pending], Globulin [Pending], Vitamin D 25-Hydroxy [Pending], 25-Hydroxy Vitamin D2 [Pending], 25- Hydroxy Vitamin D3 [Pending] Current Medications Medications (Trade) Dose Ordered Sig/Penny Route PRN Reason Start Time Stop Time Status Last Admin Dose Admin Acetaminophen (Tylenol) 500 mg Q6H PRN GT FEVER 01/21/20 20:45 02/20/20 20:44 01/29/20 02:01 Acetaminophen/ Hydrocodone Bitart ([place] 5/325) 1 tab Q6H PRN ORAL For Pain 02/07/20 11:00 02/14/20 10:59 02/09/20 00:15 Amantadine HCl (Symmetrel) 100 mg TWICE A DAY GT 01/31/20 18:00 03/01/20 17:59 02/09/20 08:18 Amlodipine Besylate (Norvasc) 5 mg BID GT 01/22/20 18:00 02/20/20 15:44 02/09/20 08:18 Aspirin (ASA) 81 mg DAILY GT 01/20/20 09:00 03/05/20 08:59 02/09/20 08:20 Atorvastatin Calcium (Lipitor) 10 mg BEDTIME GT 01/17/20 21:00 04/16/20 20:59 02/08/20 21:27 Chlorhexidine Gluconate (Ling-Hex 2%) 1 applic DAILY@2000 TOPIC 01/17/20 20:00 04/16/20 19:59 02/08/20 21:00 Dextrose (Dextrose 50%) 25 ml Q30M PRN IV Hypoglycemia 01/15/20 22:15 04/14/20 22:14 Dextrose (Dextrose 50%) 50 ml Q30M PRN IV Hypoglycemia 01/15/20 22:15 04/14/20 22:14 01/22/20 17:54 Docusate Sodium (Colace) 200 mg BIDPRN PRN GT Constipation 01/31/20 07:45 03/01/20 07:44 02/04/20 11:21 Epoetin Gelacio (Epoetin Gelacio(ESRD on dialysis)) 10,000 unit MON-MON-MON SUBQ 01/27/20 21:00 04/26/20 20:59 02/05/20 21:05 Hydralazine HCl (Apresoline) 25 mg Q6HR GT 01/26/20 18:15 04/25/20 18:14 02/09/20 05:33 Isosorbide Dinitrate (Isordil) 20 mg TID GT 01/25/20 09:00 02/19/20 08:59 02/09/20 08:20 Lactulose (Cephulac) 20 gm THREE TIMES A DAY GT 02/04/20 13:00 03/05/20 12:59 02/09/20 08:20 Lansoprazole (Prevacid) 30 mg BID GT 01/19/20 18:00 02/18/20 17:59 02/09/20 08:15 Metoclopramide HCl (Reglan) 5 mg Q6HR IVP 02/05/20 07:00 03/06/20 06:59 02/09/20 05:33 Metoprolol Tartrate (Lopressor) 25 mg Q12HR ORAL 01/27/20 21:00 04/22/20 20:59 02/09/20 08:19 Polyethylene Glycol (Miralax) 17 gm BEDTIME GT 02/04/20 21:00 03/05/20 20:59 02/07/20 20:41 Sodium Hypochlorite (Dakin's Quarter Strength) 1 applic DAILY TOPIC 01/30/20 09:00 02/29/20 08:59 02/09/20 08:21 Zinc Oxide (Zinc Oxide) 1 applic TIDPRN PRN TOPIC diogenes GT 01/16/20 13:15 04/15/20 13:14 01/16/20 14:55 Assessment/Plan Assessment/Plan Assessment/Plan 1. Large left effusion. - S/p thoracentesis; CXR better - pleural fluid pathology report: negative for malignant cell 2. Chronic respiratory failure. - Continue trach care - Cont AC mode - Currently saturating at 97% 3. Sepsis; improving 4. Anemia - improving - s/p transfusion - s/p Epogen - repeat stool OB pending per Dr. Mccauley s/p HD on broad-spectrum antibiotics. Pulmonary hygiene. DVT and GI prophylaxes. Dc planning in place FiO2 increased previously to 60%; now decreased to 40%; will wean further Elijah Hickman MD, MD Feb 09, 2020 10:21
--- NOTE | 2020-02-09 10:50 | General Progress Note ---
Subjective ROS Limited/Unobtainable: No Allergies: Coded Allergies: No Known Allergies (Unverified , 10/10/17) Objective Last 24 Hour Vital Signs Date Time Temp Pulse Resp B/P (MAP) Pulse Ox O2 Delivery O2 Flow Rate FiO2 02/09/20 08:20 145/64 02/09/20 08:19 68 145/64 02/09/20 08:18 68 145/64 02/09/20 08:00 40 02/09/20 08:00 Mechanical Ventilator Mechanical Ventilator 02/09/20 08:00 98.6 66 14 138/76 (96) 98 02/09/20 07:56 66 02/09/20 07:21 66 14 40 02/09/20 05:33 146/71 02/09/20 04:00 Mechanical Ventilator Mechanical Ventilator 02/09/20 04:00 40 02/09/20 04:00 62 02/09/20 04:00 98.6 73 18 147/86 (106) 96 02/09/20 01:30 62 17 40 02/09/20 00:11 149/66 02/09/20 00:00 Mechanical Ventilator Mechanical Ventilator 02/09/20 00:00 67 02/09/20 00:00 99.9 60 18 153/69 (97) 95 02/09/20 00:00 40 02/08/20 22:45 Mechanical Ventilator 94 02/08/20 20:00 62 02/08/20 20:00 60 23 40 02/08/20 20:00 99.7 63 18 140/63 (88) 97 02/08/20 20:00 Mechanical Ventilator Mechanical Ventilator 02/08/20 20:00 40 02/08/20 19:40 Mechanical Ventilator 97 02/08/20 17:05 62 145/63 02/08/20 17:04 145/63 02/08/20 17:04 145/63 02/08/20 16:00 40 02/08/20 16:00 97.3 65 18 145/63 (90) 98 02/08/20 16:00 Mechanical Ventilator Mechanical Ventilator 02/08/20 15:27 64 02/08/20 13:05 61 14 40 02/08/20 13:01 97.8 02/08/20 12:00 Mechanical Ventilator Mechanical Ventilator 02/08/20 12:00 40 02/08/20 12:00 138/77 02/08/20 12:00 97.8 62 20 138/77 (97) 100 02/08/20 11:32 57 02/08/20 11:05 138/72 Intake and Output 02/08/20 02/09/20 19:00 07:00 Intake Total 435 ml 525 ml Output Total 450 ml 375 ml Balance -15 ml 150 ml Free Water 50 ml 140 ml Tube Feeding 385 ml 385 ml Output Urine Total 450 ml 375 ml # Bowel Movements 4 1 Laboratory Tests 02/09/20 08:15: White Blood Count 7.8, Red Blood Count 3.18L, Hemoglobin 8.8L, Hematocrit 25.3L, Mean Corpuscular Volume 80, Mean Corpuscular Hemoglobin 27.8, Mean Corpuscular Hemoglobin Concent 34.9, Red Cell Distribution Width 16.8H, Platelet Count 388, Mean Platelet Volume 5.7L, Neutrophils (%) (Auto) 74.2, Lymphocytes (%) (Auto) 16.9L, Monocytes (%) (Auto) 6.8, Eosinophils (%) (Auto) 1.5, Basophils (%) (Auto) 0.7, Sodium Level [Pending], Potassium Level [Pending], Chloride Level [Pending], Carbon Dioxide Level [Pending], Blood Urea Nitrogen [Pending], Creatinine [Pending], Estimat Glomerular Filtration Rate [Pending], Glucose Level [Pending], Uric Acid [Pending], Calcium Level [Pending], Phosphorus Level [Pending], Total Bilirubin [Pending], Aspartate Amino Transf (AST/SGOT) [Pending], Alanine Aminotransferase (ALT/SGPT) [Pending], Alkaline Phosphatase [Pending], C-Reactive Protein, Quantitative [Pending], Pro-B-Type Natriuretic Peptide [Pending], Total Protein [Pending], Albumin [Pending], Globulin [Pending], Vitamin D 25-Hydroxy [Pending], 25-Hydroxy Vitamin D2 [Pending], 25- Hydroxy Vitamin D3 [Pending] Height (Feet): 5 Height (Inches): 6.00 Weight (Pounds): 150 General Appearance: no apparent distress EENT: normal ENT inspection Neck: supple Cardiovascular: normal rate Respiratory/Chest: decreased breath sounds Abdomen: hypoactive bowel sounds Extremities: non-tender Assessment/Plan Problem List: (1) Hx of CABG ICD Codes: Z95.1 - Presence of aortocoronary bypass graft SNOMED: 918875085, 261345789 (2) History of tracheostomy ICD Codes: Z98.890 - Other specified postprocedural states SNOMED: 363298285, 024385197 (3) PEG (percutaneous endoscopic gastrostomy) status ICD Codes: Z93.1 - Gastrostomy status SNOMED: 848854537, 230482228 (4) S/P aortic dissection repair ICD Codes: Z98.890 - Other specified postprocedural states SNOMED: 139141022, 866706079 (5) Renal failure ICD Codes: N19 - Unspecified kidney failure SNOMED: 40346593, 437927230 (6) Anemia ICD Codes: D64.9 - Anemia, unspecified SNOMED: 774218952 Assessment/Plan: stable H&H repeat stool ob GTF some GT leak reglan topical Zinc oxide HD per nephrology persistent elevated lipase\ ct reviewed s/p one unit prbc cbc in am Inder Mccauley MD Feb 09, 2020 10:50
[2020-02-09 10:52] LABS: ALANINE AMINOTRANSFERASE 9 U/L (12-78); ALBUMIN 1.9 G/DL (3.4-5.0); ALBUMIN/GLOBULIN RATIO 0.4 (1.0-2.7); ALKALINE PHOSPHATASE 193 U/L (46-116); ANION GAP 7 mmol/L (5-15); ASPARTATE AMINO TRANSFERASE 28 U/L (15-37); BILIRUBIN,TOTAL 0.4 MG/DL (0.2-1.0); BLOOD UREA NITROGEN 44 mg/dL (7-18); CALCIUM 8.5 MG/DL (8.5-10.1); CARBON DIOXIDE 31 MMOL/L (21-32); CHLORIDE 99 MMOL/L (98-107); CREATININE 2.6 MG/DL (0.55-1.30); PHOSPHORUS 2.9 MG/DL (2.5-4.9); POTASSIUM 3.5 MMOL/L (3.5-5.1); SODIUM 137 MMOL/L (136-145)
[2020-02-09 12:00] VITALS: BP 154/65
--- NOTE | 2020-02-09 14:27 | Nephrology Progress Note ---
Assessment/Plan Problem List: (1) ARF (acute renal failure) (2) Pacemaker (3) Sepsis (4) Hyponatremia Assessment (1) JAVIER (acute kidney injury) (2) Renal failure (ARF), acute on chronic (3) Feeding by G-tube (4) Tracheostomy in place (5) Electrolyte imbalance, hyponatremia (6) Anemia, severe (7) Respiratory failure, acute and chronic (8) Elevated lipase, pancreatitis (9) Elevated troponin I (10) Sepsis Plan February 08: Labs reviewed. Dialyzed yesterday. Stable from renal standpoint of view. Continue to monitor electrolytes and order dialysis as needed. February 07: Labs reviewed. Due for dialysis today. Continue per consultants. February 06: Labs reviewed. Last dialysis February 03. Will postpone today's dialysis to tomorrow. Continue per current treatment plan. February 05: Labs reviewed. Last dialysis February 03. Will order dialysis tomorrow. Waiting for tunneled catheter placement. February 04: Labs reviewed. Dialyzed yesterday. With a plan for insertion of a tunneled dialysis catheter and discontinue left groin dialysis catheter afterwards. Check labs in a.m. Discussed with Dr. Dong. February 03: Labs reviewed. Due for dialysis today. Continue per consultants. February 02: Labs reviewed. Will order dialysis tomorrow. Continue per consultants. February 01: Labs reviewed. Creatinine gradually rising. Will dialyze as needed. Continue to monitor renal parameters. January 31: Last dialysis January 29. Labs reviewed. No need for dialysis today. Continue per current management. Hemodialysis as needed. Will check re nal parameters and chemistries tomorrow. January 30: Patient was dialyzed yesterday. No labs drawn today. Continue to monitor renal parameters and dialyze as needed. Continue per consultants and PMD. January 29: Patient due for dialysis today. Today's can panel reviewed. Continue to monitor renal parameters and dialysis as needed. January 28: Patient last dialyzed January 26. No labs drawn today. Will order dialysis tomorrow. Check chemistry panel tomorrow. Continue per consultants. January 27: Patient was dialyzed yesterday . Labs were reviewed. Electrolytes within normal limit. Blood pressure stable. January 26: When visited the patient earlier today the patient was on dialysis. Tolerating well. Labs reviewed. Blood pressure stable. January 25: Dialysis for tomorrow. Labs reviewed. Hemoglobin remains low. Will adjust blood pressure medication. Hydralazine added to the regimen January 24: Last dialyzed January 22. Labs reviewed. Status quo. Will dialyze as needed. Low hemoglobin noted. Transfusion per PMD decision. Epogen started. \January 23: Dialyzed yesterday. Today's labs reviewed. Continue to monitor renal parameters and arrange for dialysis as needed. Continue per PMD. January 22: Seen earlier during dialysis. Labs reviewed. Medication list reviewed. Continue current management. January 21: Labs reviewed. Medication list reviewed. Next hemodialysis tomorrow. Blood pressure medication adjusted. January 20: Dialyzed yesterday. Labs reviewed. Continue per current management. Dialysis as needed. Add Norvasc to blood pressure regimen January 19: Due for dialysis today. Labs reviewed. Continue her current management. Continue to monitor renal parameters and electrolytes. January 18: Dialyzed yesterday. Labs reviewed. Renal parameters electrolytes much improved. Dialysis again tomorrow. Continue rest. January 17: Dialyzed this morning. Labs reviewed. Renal parameters and electrolyte abnormalities improved. Discussed with RN. Continue per consultants. January 16: Dialyzed yesterday. Labs improved. Next dialysis tomorrow. Continue per consultants. January 15: Patient to have dialysis catheter. Emergency dialysis for correction of uremia and electrolyte imbalances Antibiotics Transfusion Continue to monitor renal parameters Per orders Discussed with RN Subjective ROS Limited/Unobtainable: Yes Objective Objective Last 24 Hour Vital Signs Date Time Temp Pulse Resp B/P (MAP) Pulse Ox O2 Delivery O2 Flow Rate FiO2 02/09/20 12:11 149/107 02/09/20 12:10 149/107 02/09/20 12:00 98.4 63 19 154/65 (94) 98 02/09/20 12:00 40 02/09/20 12:00 Mechanical Ventilator Mechanical Ventilator 02/09/20 11:31 66 02/09/20 11:12 72 20 40 02/09/20 08:20 145/64 02/09/20 08:19 68 145/64 02/09/20 08:18 68 145/64 02/09/20 08:00 40 02/09/20 08:00 Mechanical Ventilator Mechanical Ventilator 02/09/20 08:00 98.6 66 14 138/76 (96) 98 02/09/20 07:56 66 02/09/20 07:21 66 14 40 02/09/20 05:33 146/71 02/09/20 04:00 Mechanical Ventilator Mechanical Ventilator 02/09/20 04:00 40 02/09/20 04:00 62 02/09/20 04:00 98.6 73 18 147/86 (106) 96 02/09/20 01:30 62 17 40 02/09/20 00:11 149/66 02/09/20 00:00 Mechanical Ventilator Mechanical Ventilator 02/09/20 00:00 67 02/09/20 00:00 99.9 60 18 153/69 (97) 95 02/09/20 00:00 40 02/08/20 22:45 Mechanical Ventilator 94 02/08/20 20:00 62 02/08/20 20:00 60 23 40 02/08/20 20:00 99.7 63 18 140/63 (88) 97 02/08/20 20:00 Mechanical Ventilator Mechanical Ventilator 02/08/20 20:00 40 02/08/20 19:40 Mechanical Ventilator 97 02/08/20 17:05 62 145/63 02/08/20 17:04 145/63 02/08/20 17:04 145/63 02/08/20 16:00 40 02/08/20 16:00 97.3 65 18 145/63 (90) 98 02/08/20 16:00 Mechanical Ventilator Mechanical Ventilator 02/08/20 15:27 64 Intake and Output 02/08/20 02/09/20 19:00 07:00 Intake Total 435 ml 525 ml Output Total 450 ml 375 ml Balance -15 ml 150 ml Free Water 50 ml 140 ml Tube Feeding 385 ml 385 ml Output Urine Total 450 ml 375 ml # Bowel Movements 4 1 Laboratory Tests 02/09/20 08:15: White Blood Count 7.8, Red Blood Count 3.18L, Hemoglobin 8.8L, Hematocrit 25.3L, Mean Corpuscular Volume 80, Mean Corpuscular Hemoglobin 27.8, Mean Corpuscular Hemoglobin Concent 34.9, Red Cell Distribution Width 16.8H, Platelet Count 388, Mean Platelet Volume 5.7L, Neutrophils (%) (Auto) 74.2, Lymphocytes (%) (Auto) 16.9L, Monocytes (%) (Auto) 6.8, Eosinophils (%) (Auto) 1.5, Basophils (%) (Auto) 0.7, Sodium Level 137, Potassium Level 3.5, Chloride Level 99, Carbon Dioxide Level 31, Anion Gap 7, Blood Urea Nitrogen 44H, Creatinine 2.6H, Estimat Glomerular Filtration Rate 19.7, Glucose Level 93, Uric Acid 3.1, Calcium Level 8.5, Phosphorus Level 2.9, Total Bilirubin 0.4, Aspartate Amino Transf (AST/SGOT) 28, Alanine Aminotransferase (ALT/SGPT) 9L, Alkaline Phosphatase 193H , C-Reactive Protein, Quantitative 17.1H, Pro-B-Type Natriuretic Peptide > 47342M, Total Protein 7.0, Albumin 1.9L, Globulin 5.1, Albumin/Globulin Ratio 0.4L, Vitamin D 25-Hydroxy [Pending], 25-Hydroxy Vitamin D2 [Pending], 25- Hydroxy Vitamin D3 [Pending] Height (Feet): 5 Height (Inches): 6.00 Weight (Pounds): 150 General Appearance: no apparent distress EENT: other - Trach to vent Cardiovascular: normal rate Respiratory/Chest: decreased breath sounds Abdomen: distended Objective No change Johnny Houston MD Feb 09, 2020 14:27
[2020-02-09 16:00] VITALS: BP 144/81
[2020-02-09] MEDS ORDERED: Acetaminophen 650mg/20.3ml GT PRN (17:15)
--- NOTE | 2020-02-09 18:09 | Surgery Progress Note ---
Surgery Progress Note Subjective Procedure Performed Left femoral temporary hemodialysis catheter insertion Additional Comments no longer bleeding plan removal line tomorrow Objective Last 24 Hour Vital Signs Date Time Temp Pulse Resp B/P (MAP) Pulse Ox O2 Delivery O2 Flow Rate FiO2 02/09/20 17:40 151/63 02/09/20 17:39 151/63 02/09/20 17:39 68 151/63 02/09/20 15:07 72 20 40 02/09/20 12:11 149/107 02/09/20 12:10 149/107 02/09/20 12:00 98.4 63 19 154/65 (94) 98 02/09/20 12:00 40 02/09/20 12:00 Mechanical Ventilator Mechanical Ventilator 02/09/20 11:31 66 02/09/20 11:12 72 20 40 02/09/20 08:20 145/64 02/09/20 08:19 68 145/64 02/09/20 08:18 68 145/64 02/09/20 08:00 40 02/09/20 08:00 Mechanical Ventilator Mechanical Ventilator 02/09/20 08:00 98.6 66 14 138/76 (96) 98 02/09/20 07:56 66 02/09/20 07:21 66 14 40 02/09/20 05:33 146/71 02/09/20 04:00 Mechanical Ventilator Mechanical Ventilator 02/09/20 04:00 40 02/09/20 04:00 62 02/09/20 04:00 98.6 73 18 147/86 (106) 96 02/09/20 01:30 62 17 40 02/09/20 00:11 149/66 02/09/20 00:00 Mechanical Ventilator Mechanical Ventilator 02/09/20 00:00 67 02/09/20 00:00 99.9 60 18 153/69 (97) 95 02/09/20 00:00 40 02/08/20 22:45 Mechanical Ventilator 94 02/08/20 20:00 62 02/08/20 20:00 60 23 40 02/08/20 20:00 99.7 63 18 140/63 (88) 97 02/08/20 20:00 Mechanical Ventilator Mechanical Ventilator 02/08/20 20:00 40 02/08/20 19:40 Mechanical Ventilator 97 I&O Intake and Output 02/08/20 02/09/20 18:59 06:59 Intake Total 435 ml 560 ml Output Total 450 ml 375 ml Balance -15 ml 185 ml Free Water 50 ml 140 ml Tube Feeding 385 ml 420 ml Output Urine Total 450 ml 375 ml # Bowel Movements 4 1 Dressing: saturated Cardiovascular: RSR Respiratory: decreased breath sounds Abdomen: soft, non-tender, present bowel sounds Extremities: no tenderness, no cyanosis Laboratory Tests Test 02/09/20 08:15 White Blood Count 7.8 K/UL (4.8-10.8) Red Blood Count 3.18 M/UL (4.20-5.40) L Hemoglobin 8.8 G/DL (12.0-16.0) L Hematocrit 25.3 % (37.0-47.0) L Mean Corpuscular Volume 80 FL (80-99) Mean Corpuscular Hemoglobin 27.8 PG (27.0-31.0) Mean Corpuscular Hemoglobin Concent 34.9 G/DL (32.0-36.0) Red Cell Distribution Width 16.8 % (11.6-14.8) H Platelet Count 388 K/UL (150-450) Mean Platelet Volume 5.7 FL (6.5-10.1) L Neutrophils (%) (Auto) 74.2 % (45.0-75.0) Lymphocytes (%) (Auto) 16.9 % (20.0-45.0) L Monocytes (%) (Auto) 6.8 % (1.0-10.0) Eosinophils (%) (Auto) 1.5 % (0.0-3.0) Basophils (%) (Auto) 0.7 % (0.0-2.0) Sodium Level 137 MMOL/L (136-145) Potassium Level 3.5 MMOL/L (3.5-5.1) Chloride Level 99 MMOL/L (98-107) Carbon Dioxide Level 31 MMOL/L (21-32) Anion Gap 7 mmol/L (5-15) Blood Urea Nitrogen 44 mg/dL (7-18) H Creatinine 2.6 MG/DL (0.55-1.30) H Estimat Glomerular Filtration Rate 19.7 mL/min (>60) Glucose Level 93 MG/DL (74-106) Uric Acid 3.1 MG/DL (2.6-7.2) Calcium Level 8.5 MG/DL (8.5-10.1) Phosphorus Level 2.9 MG/DL (2.5-4.9) Total Bilirubin 0.4 MG/DL (0.2-1.0) Aspartate Amino Transf (AST/SGOT) 28 U/L (15-37) Alanine Aminotransferase (ALT/SGPT) 9 U/L (12-78) L Alkaline Phosphatase 193 U/L (46-116) H C-Reactive Protein, Quantitative 17.1 mg/dL (0.00-0.90) H Pro-B-Type Natriuretic Peptide > 74819 pg/mL (0-125) H Total Protein 7.0 G/DL (6.4-8.2) Albumin 1.9 G/DL (3.4-5.0) L Globulin 5.1 g/dL Albumin/Globulin Ratio 0.4 (1.0-2.7) L Vitamin D 25-Hydroxy Pending 25-Hydroxy Vitamin D2 Pending 25-Hydroxy Vitamin D3 Pending Plan Problems: (1) Dehydration (2) Acidosis (3) Depression (4) Pleural effusion (5) Respiratory failure (6) Schizophrenia (7) Hypoxia (8) UTI (urinary tract infection) (9) Pneumonia (10) NSTEMI (non-ST elevated myocardial infarction) (11) Tracheostomy in place (12) Feeding by G-tube (13) JAVIER (acute kidney injury) (14) Acute encephalopathy (15) Sacral decubitus ulcer, stage IV (16) Chronic respiratory failure (17) Ascites (18) Bacteremia (19) Hypernatremia (20) Proteinuria (21) Electrolyte imbalance (22) ACS (acute coronary syndrome) (23) Aortic dissection, thoracic (24) Respiratory failure, acute and chronic (25) JAVIER (acute kidney injury) (26) Abrasion of lip, initial encounter (27) COPD with exacerbation (28) Elevated alkaline phosphatase level (29) Renal failure (ARF), acute on chronic (30) HCAP (healthcare-associated pneumonia) (31) GT CLOGGED (32) Elevated lipase (33) Pancreatitis (34) Elevated troponin (35) Hypokalemia (36) Hyponatremia (37) Anemia (38) Renal failure (39) ARF (acute renal failure) (40) Pacemaker (41) Sepsis Assessment & Plan: leukocytosis anemia on HD renal insufficiency wounds addressed pancreatitis cont diet as tolerating trend labs lf'ts okay bleeding from permacath site suture used and hemostasis obtained plan removal of fem line if stable tomorrow pt presented on admission with Tracheostomy ,GT and Multiple Pressure Injuries. Skin assessment of skin under tracheal collar without evidence of skin breakdown. Peristomal GT site excoriated.Moderate amt of dark red sanguineous exudate. Full Thickness Sacral Pressure Injury with undermined borders (L)9 cm x (W)12cm x (D)1.8cm,Undermining clockwise8-9 by 2.2cm @1o'clock,undermining clockwise 1-4 by 1.9 @ 9'oclock Scattered necrotic tissue within wound bed. Borders are loose and necrotic with marginal erythema to outer perimeter of wound. NO elevation in skin temp noted periwound. Wound is malodorous. Small amt Brown exudate noted. Resolving Pressure Injury L Ischium(L)1.5cm x (W)1.5cm. Base of wound is 80% pink epithelial with an area that is moist and pink. NO odor or exudate noted. Bilat foot-drop noted. L Heel is boggy with non-blanchable erythema(L)4cm x (W)4cm. R heel is boggy with non-Blanchable erythema(L)5cm x (W)6cm. Tx.Plan: Cleanse sacral wound with Dakin's 0.125% annie. Loosely pack with Dakin's moistened Kerlix(Attention to undermined borders). Apply Moisture Barrier Paste periwound. Cover with Optifoam drsg. Change Daily and PRN. Apply Cavilon Skin Barrier to R and L Hels. Cover each heel with Optifoam drsg. Change every 7 days and prn. Reposition at least every 2hours or as tolerated. Off-load heels with Pillow. APM/JENNIFER MAttress overlay DAILY ESTIMATED NEEDS: Needs based on Critical care, wound, renal dysfunction 56 kg abw 28-33 kcals/kg 1757-3347 total kcals W/ HD (1.5-2.0) g protein/kg 84-112 g total protein Fluid per MD NUTRITION DIAGNOSIS: * Swallowing difficulty R/T dysphagia, respiratory status as evidenced by vent dep via trach, GT Dep. * Increase kcal and pro needs r/t wound healing, renal dysfunction as evidenced by admitted w/ stage 4 sacral wound, admitted w/ JAVIER, now on HD. CURRENT TF: Nepro @ 40ml/hr x 24 hrs ENTERAL NUTRITION RECOMMENDATIONS: Nepro @ 40ml/hr x 24 hrs + Prosource 1pkt QD to provide 960ml, 1728kcal, 78g+11g prot, 698ml free water * Maintain current TF @ goal as tolerated * Add Prosource 1pkt QD to better meet increased protein needs (additional 11g prot) * Water flush per MD/ HOB over 30 degrees ADDITIONAL RECOMMENDATIONS: * Per SNF in NOV 2019: HT=63"/ Rec daily calibrated bedscale wt * Monitor for continuity of HD, next HD 02/03 * Rec phos binders- consistently elevated phos level * Wound care: add Nephrovite x 1, ZnSO4 220mg QD x 10 days Reynaldo BID via PEG (mix w/ 2-4 oz water); vit C per nephro * Monitor TF tolerance: elev lipase, slowly trending down * Add bowel regimen: no BM x 8 days, last BM on 01/25. (42) Hyponatremia Lane Saavedra Feb 09, 2020 18:09
--- NOTE | 2020-02-09 19:04 | NUR ---
NURSE NOTES: Received report from Louis RN, pt. in bed awake- opens eyes to name, no signs or symptoms of acute cardiac or respiratory distress noted, bed alarm on side rails up x's3 and safety brakes engaged, pt. appears to be tolerating current vent settings well- AC 14, TV 500, Fio2 at 40% and peep 5- no distress noted, pt. has g tube running Nepro at 35cc/hr-no residual noted, pt. has Norman intact and draining to gravity, pt. appears clean and dry, HOB elevated- aspiration and skin precautions and skin precautions observed, Left wrist 22G IV intact and patent, RFA 22G IV intact and patent, left femoral Charlie appears intact and dry- per endorsement DR. August will remove tomorrow, Right EJ PermCath appears intact clean and dry- used for HD, repositioned and turned pt., safety measures continued, will continue with plan of care.
--- NOTE | 2020-02-09 19:05 | NUR ---
NURSE HAND-OFF REPORT: Important Events on Shift: patient stable Patient Status: Diet: Pending Orders: Pending Results/Labs: Pending MD notification: Latest Vital Signs: Temperature 98.2 , Pulse 73 , B/P 151 /63 , Respiratory Rate 18 , O2 SAT 97 , Mechanical Ventilator, O2 Flow Rate . Vital Sign Comment: EKG Rhythm: Sinus Rhythm Rhythm change?: N MD Notified?: N -Dr. Екатерина HATFIELD Response: Order Received& Read Back Latest Chavarria Fall Score: 50 Fall Risk: High Risk Safety Measures: Call light Within Reach, Bed Alarm Zone 1, Side Rails Side Rails x2, Bed position Low and Locked. Fall Precautions: Yellow Socks Report given to ERASMO Ruiz.
[2020-02-09 20:00] VITALS: BP 128/62
[2020-02-09] MEDS: Dyna-Hex 2% Top Sol 2oz TOPIC SCH (20:10)
[2020-02-09] MEDS: Miralax 17gm pkt GT SCH (20:10)
--- NOTE | 2020-02-09 20:34 | NUR ---
NURSE NOTES: Lopressor not administered as heart rate is 59. pt. remains stable- will continue to monitor pt.
--- NOTE | 2020-02-09 23:07 | NUR ---
NURSE NOTES: bed bath given linens changed, oral care provided, repositioned and turned pt- pt. appears to be tolerating current vent settings- aspiration precautions observed- HOB elevated, pt. appears to be resting comfortably, will continue to monitor pt. and with plan of care.
[2020-02-10] VITALS: BP 147/63
[2020-02-10 04:00] VITALS: BP 143/61
--- NOTE | 2020-02-10 04:25 | Cardiology Progress Note ---
Subjective DATE OF SERVICE: Jan 10, 2020 Scheduled for HD/UF yesterday Remains in atrial fibrillation; rates controlled. Occasional PVC's - non- sustained BP range stable Full vent support via trach s/p left thorocentesis 01/22/20 S/P PRBC tx yesterday Objective Last 24 Hour Vital Signs Date Time Temp Pulse Resp B/P (MAP) Pulse Ox O2 Delivery O2 Flow Rate FiO2 02/10/20 04:00 98.2 68 17 143/61 (88) 99 02/10/20 04:00 40 02/10/20 04:00 Mechanical Ventilator Mechanical Ventilator 02/10/20 03:20 74 02/10/20 02:44 72 22 40 02/10/20 00:00 98.0 75 20 147/63 (91) 98 02/10/20 00:00 40 02/10/20 00:00 Mechanical Ventilator Mechanical Ventilator 02/09/20 23:55 72 02/09/20 23:03 132/67 02/09/20 22:49 77 14 40 02/09/20 20:34 59 128/62 02/09/20 20:00 40 02/09/20 20:00 98.1 59 18 128/62 (84) 98 02/09/20 20:00 Mechanical Ventilator Mechanical Ventilator 02/09/20 19:21 68 02/09/20 18:50 73 18 40 02/09/20 17:40 151/63 02/09/20 17:39 151/63 02/09/20 17:39 68 151/63 02/09/20 16:00 98.2 70 18 144/81 (102) 97 02/09/20 16:00 40 02/09/20 16:00 Mechanical Ventilator Mechanical Ventilator 02/09/20 15:38 71 02/09/20 15:07 72 20 40 02/09/20 12:11 149/107 02/09/20 12:10 149/107 02/09/20 12:00 98.4 63 19 154/65 (94) 98 02/09/20 12:00 40 02/09/20 12:00 Mechanical Ventilator Mechanical Ventilator 02/09/20 11:31 66 02/09/20 11:12 72 20 40 02/09/20 08:20 145/64 02/09/20 08:19 68 145/64 02/09/20 08:18 68 145/64 02/09/20 08:00 40 02/09/20 08:00 Mechanical Ventilator Mechanical Ventilator 02/09/20 08:00 98.6 66 14 138/76 (96) 98 02/09/20 07:56 66 02/09/20 07:21 66 14 40 02/09/20 05:33 146/71 ROS: unchanged for 01/17/20 HEENT: Mechanically Ventilated, Thick Trach secretions RHYTHM: Afib LUNGS: bilateral rhonchi, trach site clean CARDIAC: normal S1 and S2, irregularly irregular, other - no rub ABDOMEN: normal bowel sounds, non tender, soft, G-Tube intact, other - left groin- no bleeding at old cath site EXTREMITIES: normal inspection, trace edema Laboratory Tests Test 02/09/20 08:15 White Blood Count 7.8 K/UL (4.8-10.8) Red Blood Count 3.18 M/UL (4.20-5.40) L Hemoglobin 8.8 G/DL (12.0-16.0) L Hematocrit 25.3 % (37.0-47.0) L Mean Corpuscular Volume 80 FL (80-99) Mean Corpuscular Hemoglobin 27.8 PG (27.0-31.0) Mean Corpuscular Hemoglobin Concent 34.9 G/DL (32.0-36.0) Red Cell Distribution Width 16.8 % (11.6-14.8) H Platelet Count 388 K/UL (150-450) Mean Platelet Volume 5.7 FL (6.5-10.1) L Neutrophils (%) (Auto) 74.2 % (45.0-75.0) Lymphocytes (%) (Auto) 16.9 % (20.0-45.0) L Monocytes (%) (Auto) 6.8 % (1.0-10.0) Eosinophils (%) (Auto) 1.5 % (0.0-3.0) Basophils (%) (Auto) 0.7 % (0.0-2.0) Sodium Level 137 MMOL/L (136-145) Potassium Level 3.5 MMOL/L (3.5-5.1) Chloride Level 99 MMOL/L (98-107) Carbon Dioxide Level 31 MMOL/L (21-32) Anion Gap 7 mmol/L (5-15) Blood Urea Nitrogen 44 mg/dL (7-18) H Creatinine 2.6 MG/DL (0.55-1.30) H Estimat Glomerular Filtration Rate 19.7 mL/min (>60) Glucose Level 93 MG/DL (74-106) Uric Acid 3.1 MG/DL (2.6-7.2) Calcium Level 8.5 MG/DL (8.5-10.1) Phosphorus Level 2.9 MG/DL (2.5-4.9) Total Bilirubin 0.4 MG/DL (0.2-1.0) Aspartate Amino Transf (AST/SGOT) 28 U/L (15-37) Alanine Aminotransferase (ALT/SGPT) 9 U/L (12-78) L Alkaline Phosphatase 193 U/L (46-116) H C-Reactive Protein, Quantitative 17.1 mg/dL (0.00-0.90) H Pro-B-Type Natriuretic Peptide > 98501 pg/mL (0-125) H Total Protein 7.0 G/DL (6.4-8.2) Albumin 1.9 G/DL (3.4-5.0) L Globulin 5.1 g/dL Albumin/Globulin Ratio 0.4 (1.0-2.7) L Vitamin D 25-Hydroxy Pending 25-Hydroxy Vitamin D2 Pending 25-Hydroxy Vitamin D3 Pending Assessment/Plan Assessment/Plan Chronic respiratory failure with trach Severe sepsis PAFib with rapid ventric response. Ischemic cardiomyopathy - hx CABG and s/p NSTEMI in Dec 2019. Conduction system disease of the heart Hx of permanent pacemaker explant Acute on chronic systolic and diastolic CHF Pleural effusion Anemia Hypertension/HHD with labile BP. ESRD Avoid beta flori therapy based on risk of bradycardia. Anti-failure and anti-anginal regimen with titration Vent support Abx per ID Continuous cardiac monitoring Anti-HTN regimen being titrated as needed. Transfuse PRBC as needed Stable for subacute facility from Cardiovascular standpoint Deni Willams MD Feb 10, 2020 04:25
[2020-02-10] MEDS: HydrALAZINE 25mg tab GT SCH ×4 (05:06→23:33)
[2020-02-10] MEDS: Metoclopramide 10mg/2ml Inj IVP SCH ×4 (05:06→23:34)
[2020-02-10] MEDS: Acetaminophen 650mg/20.3ml GT PRN (05:11)
--- NOTE | 2020-02-10 06:47 | Hematology/Onc Progress Note ---
Assessment/Plan Assessment/Plan IM note Covering for Dr. Dong Assessment and Recs # Leukocytosis, now with pna v other process --> Cxr: : Large left pleural effusion, Bilateral interstitial and airspace infiltrates versus edema --> wbc 16-->26->30-->10->8 --> ABX zosyn-->angelo/vanc-->angelo/tobra->off --> ID recs are noted --> smear has been reviewed # Anemia of chronic disease due to underlying chronic medical issues, multifactorial --> Anemia workup has been reviewed, cw acd --> No evidence of hemolysis is noted, peripheral smear has been reviewed. --> Hgb goal >7. Transfuse prn. --> Epogen required, to continue --> Medications have been reviewed --> low threshold for gi evaluation in case has occult + --> hgb 7.1-->7.8-->>>5.9-->7.3-->7-->7.2-->7.9-->8.6-->8.2-->8.5-->7 --> 1 unit prbc10/17, 2 units 01/15. 02/06 --> gi eval as needed # Coagulopathy with inr 1.5 --> consider vit k/ffp as needed preprocedure --> labs noted # JAVIER initially >2 --> on ivfs --> per renal # Elevated d-dimer --> venous duplex ordered-->reviewed, is neg --> in prior neg # Dysphagia s/p peg --> as per gi # Thoracic aortic dissection --> s/p repair early 2017 # Chronic Resp failure -> s/p trach/vent # Psychiatric history on ativan/haldol # [place] resident # Dvt ppx --> scds The timing of this note does not necessarily reflect the time of the patient was seen. Greatly appreciate consultation. Subjective HEENT: Denies: no symptoms, eye pain, blurred vision, tearing, double vision, ear pain, ear discharge, nose pain, nose congestion, throat pain, throat swelling, mouth pain, mouth swelling, other Allergies: Coded Allergies: No Known Allergies (Unverified , 10/10/17) All Systems: reviewed and negative except above Subjective 01/16 left femoral [address]den in place, on vent, icu, hgb better 01/18 labs are noted, wbc 30, hgb 7, may require prbc today 01/27 is off amio, on epoogen, hgb reviewed, 7.2, transfuse if unstable 01/28 pain meds given, some foaming around mouth, no bleeding 01/29 hd was done yesterday, no bleedig, cbc pending, asa given 01/30 labs are noted, no bleeding, labs reviewed, pending meds 02/01 labs are noted, no bleeding, meds reviewed, no f/c, trach/vent 02/02 labs noted, no night sweats, t/v, labs ordered for am 02/03 labs reviewed, meds noted, no bleeding, hgb 7.9 02/04 meds noted, no bleeding, labs reviewed, hgb 8 02/05 labs are pending, some secretions are noted, no bleeding 02/[address] still with bleed dw Rn, will place seal/further pressure 02/08 labs reviewed, grimacing, meds noted, vitals noted, seen by cards 02/09 on vent, meds reviewed, hd as per renal, labs pending Objective Objective Current Medications Medications (Trade) Dose Ordered Sig/Penny Route PRN Reason Start Time Stop Time Status Last Admin Dose Admin Acetaminophen (Tylenol) 500 mg Q6H PRN GT FEVER 01/21/20 20:45 02/20/20 20:44 02/10/20 05:11 Acetaminophen (Tylenol) 650 mg Q6H PRN GT For Pain 02/09/20 17:15 03/10/20 17:14 02/09/20 17:39 Acetaminophen/ Hydrocodone Bitart ([place] 5/325) 1 tab Q6H PRN ORAL For Pain 02/07/20 11:00 02/14/20 10:59 02/09/20 00:15 Amantadine HCl (Symmetrel) 100 mg TWICE A DAY GT 01/31/20 18:00 03/01/20 17:59 02/09/20 17:39 Amlodipine Besylate (Norvasc) 5 mg BID GT 01/22/20 18:00 02/20/20 15:44 02/09/20 17:39 Aspirin (ASA) 81 mg DAILY GT 01/20/20 09:00 03/05/20 08:59 02/09/20 08:20 Atorvastatin Calcium (Lipitor) 10 mg BEDTIME GT 01/17/20 21:00 04/16/20 20:59 02/09/20 20:09 Chlorhexidine Gluconate (Ling-Hex 2%) 1 applic DAILY@2000 TOPIC 01/17/20 20:00 04/16/20 19:59 02/09/20 20:10 Dextrose (Dextrose 50%) 25 ml Q30M PRN IV Hypoglycemia 01/15/20 22:15 04/14/20 22:14 Dextrose (Dextrose 50%) 50 ml Q30M PRN IV Hypoglycemia 01/15/20 22:15 04/14/20 22:14 01/22/20 17:54 Docusate Sodium (Colace) 200 mg BIDPRN PRN GT Constipation 01/31/20 07:45 03/01/20 07:44 02/04/20 11:21 Epoetin Gelacio (Epoetin Gelacio(ESRD on dialysis)) 10,000 unit MON-MON-MON SUBQ 01/27/20 21:00 04/26/20 20:59 02/05/20 21:05 Hydralazine HCl (Apresoline) 25 mg Q6HR GT 01/26/20 18:15 04/25/20 18:14 02/10/20 05:06 Isosorbide Dinitrate (Isordil) 20 mg TID GT 01/25/20 09:00 02/19/20 08:59 02/09/20 17:39 Lactulose (Cephulac) 20 gm THREE TIMES A DAY GT 02/04/20 13:00 03/05/20 12:59 02/09/20 17:39 Lansoprazole (Prevacid) 30 mg BID GT 01/19/20 18:00 02/18/20 17:59 02/09/20 17:40 Metoclopramide HCl (Reglan) 5 mg Q6HR IVP 02/05/20 07:00 03/06/20 06:59 02/10/20 05:06 Metoprolol Tartrate (Lopressor) 25 mg Q12HR ORAL 01/27/20 21:00 04/22/20 20:59 02/09/20 08:19 Polyethylene Glycol (Miralax) 17 gm BEDTIME GT 02/04/20 21:00 03/05/20 20:59 02/09/20 20:10 Sodium Hypochlorite (Dakin's Quarter Strength) 1 applic DAILY TOPIC 01/30/20 09:00 02/29/20 08:59 02/09/20 08:21 Zinc Oxide (Zinc Oxide) 1 applic TIDPRN PRN TOPIC diogenes GT 01/16/20 13:15 04/15/20 13:14 01/16/20 14:55 Last 24 Hour Vital Signs Date Time Temp Pulse Resp B/P (MAP) Pulse Ox O2 Delivery O2 Flow Rate FiO2 02/10/20 05:41 98.9 02/10/20 05:06 145/62 02/10/20 04:00 98.2 68 17 143/61 (88) 99 02/10/20 04:00 40 02/10/20 04:00 Mechanical Ventilator Mechanical Ventilator 02/10/20 03:20 74 02/10/20 02:44 72 22 40 02/10/20 00:00 98.0 75 20 147/63 (91) 98 02/10/20 00:00 40 02/10/20 00:00 Mechanical Ventilator Mechanical Ventilator 02/09/20 23:55 72 02/09/20 23:03 132/67 02/09/20 22:49 77 14 40 02/09/20 20:34 59 128/62 02/09/20 20:00 40 02/09/20 20:00 98.1 59 18 128/62 (84) 98 02/09/20 20:00 Mechanical Ventilator Mechanical Ventilator 02/09/20 19:21 68 02/09/20 18:50 73 18 40 02/09/20 17:40 151/63 02/09/20 17:39 151/63 02/09/20 17:39 68 151/63 02/09/20 16:00 98.2 70 18 144/81 (102) 97 02/09/20 16:00 40 02/09/20 16:00 Mechanical Ventilator Mechanical Ventilator 02/09/20 15:38 71 02/09/20 15:07 72 20 40 02/09/20 12:11 149/107 02/09/20 12:10 149/107 02/09/20 12:00 98.4 63 19 154/65 (94) 98 02/09/20 12:00 40 02/09/20 12:00 Mechanical Ventilator Mechanical Ventilator 02/09/20 11:31 66 02/09/20 11:12 72 20 40 02/09/20 08:20 145/64 02/09/20 08:19 68 145/64 02/09/20 08:18 68 145/64 02/09/20 08:00 40 02/09/20 08:00 Mechanical Ventilator Mechanical Ventilator 02/09/20 08:00 98.6 66 14 138/76 (96) 98 02/09/20 07:56 66 02/09/20 07:21 66 14 40 02/09/20 05:33 146/71 02/09/20 04:00 Mechanical Ventilator Mechanical Ventilator 02/09/20 04:00 40 02/09/20 04:00 62 02/09/20 04:00 98.6 73 18 147/86 (106) 96 02/09/20 01:30 62 17 40 02/09/20 00:11 149/66 02/09/20 00:00 Mechanical Ventilator Mechanical Ventilator 02/09/20 00:00 67 02/09/20 00:00 99.9 60 18 153/69 (97) 95 02/09/20 00:00 40 02/08/20 22:45 Mechanical Ventilator 94 02/08/20 20:00 62 02/08/20 20:00 60 23 40 02/08/20 20:00 99.7 63 18 140/63 (88) 97 02/08/20 20:00 Mechanical Ventilator Mechanical Ventilator 02/08/20 20:00 40 02/08/20 19:40 Mechanical Ventilator 97 02/08/20 17:05 62 145/63 02/08/20 17:04 145/63 02/08/20 17:04 145/63 02/08/20 16:00 40 02/08/20 16:00 97.3 65 18 145/63 (90) 98 02/08/20 16:00 Mechanical Ventilator Mechanical Ventilator 02/08/20 15:27 64 02/08/20 13:05 61 14 40 02/08/20 13:01 97.8 02/08/20 12:00 Mechanical Ventilator Mechanical Ventilator 02/08/20 12:00 40 02/08/20 12:00 138/77 02/08/20 12:00 97.8 62 20 138/77 (97) 100 02/08/20 11:32 57 02/08/20 11:05 138/72 02/08/20 08:19 139/68 02/08/20 08:18 60 139/68 02/08/20 08:17 60 139/68 02/08/20 08:00 40 02/08/20 08:00 97.7 68 20 139/74 (95) 100 02/08/20 08:00 Mechanical Ventilator Mechanical Ventilator 02/08/20 07:51 60 02/08/20 07:07 62 18 40 Intake and Output 02/09/20 02/10/20 19:00 07:00 Intake Total 660 ml 435 ml Output Total 250 ml 325 ml Balance 410 ml 110 ml Free Water 240 ml 50 ml Tube Feeding 420 ml 385 ml Output Urine Total 250 ml 325 ml # Bowel Movements 1 4 Labs Test 02/08/20 05:10 02/09/20 08:15 White Blood Count 8.0 K/UL (4.8-10.8) 7.8 K/UL (4.8-10.8) Red Blood Count 3.06 M/UL (4.20-5.40) 3.18 M/UL (4.20-5.40) Hemoglobin 8.5 G/DL (12.0-16.0) 8.8 G/DL (12.0-16.0) Hematocrit 25.4 % (37.0-47.0) 25.3 % (37.0-47.0) Mean Corpuscular Volume 83 FL (80-99) 80 FL (80-99) Mean Corpuscular Hemoglobin 27.7 PG (27.0-31.0) 27.8 PG (27.0-31.0) Mean Corpuscular Hemoglobin Concent 33.4 G/DL (32.0-36.0) 34.9 G/DL (32.0-36.0) Red Cell Distribution Width 14.7 % (11.6-14.8) 16.8 % (11.6-14.8) Platelet Count 412 K/UL (150-450) 388 K/UL (150-450) Mean Platelet Volume 5.6 FL (6.5-10.1) 5.7 FL (6.5-10.1) Neutrophils (%) (Auto) 72.3 % (45.0-75.0) 74.2 % (45.0-75.0) Lymphocytes (%) (Auto) 17.6 % (20.0-45.0) 16.9 % (20.0-45.0) Monocytes (%) (Auto) 6.8 % (1.0-10.0) 6.8 % (1.0-10.0) Eosinophils (%) (Auto) 2.3 % (0.0-3.0) 1.5 % (0.0-3.0) Basophils (%) (Auto) 1.0 % (0.0-2.0) 0.7 % (0.0-2.0) Prothrombin Time 13.9 SEC (9.30-11.50) Prothromb Time International Ratio 1.3 (0.9-1.1) Activated Partial Thromboplast Time 31 SEC (23-33) Sodium Level 131 MMOL/L (136-145) 137 MMOL/L (136-145) Potassium Level 3.8 MMOL/L (3.5-5.1) 3.5 MMOL/L (3.5-5.1) Chloride Level 95 MMOL/L (98-107) 99 MMOL/L (98-107) Carbon Dioxide Level 29 MMOL/L (21-32) 31 MMOL/L (21-32) Anion Gap 8 mmol/L (5-15) 7 mmol/L (5-15) Blood Urea Nitrogen 84 mg/dL (7-18) 44 mg/dL (7-18) Creatinine 4.0 MG/DL (0.55-1.30) 2.6 MG/DL (0.55-1.30) Estimat Glomerular Filtration Rate 12.0 mL/min (>60) 19.7 mL/min (>60) Glucose Level 92 MG/DL (74-106) 93 MG/DL (74-106) Uric Acid 5.3 MG/DL (2.6-7.2) 3.1 MG/DL (2.6-7.2) Calcium Level 8.6 MG/DL (8.5-10.1) 8.5 MG/DL (8.5-10.1) Phosphorus Level 5.0 MG/DL (2.5-4.9) 2.9 MG/DL (2.5-4.9) Magnesium Level 3.0 MG/DL (1.8-2.4) Total Bilirubin 0.4 MG/DL (0.2-1.0) 0.4 MG/DL (0.2-1.0) Aspartate Amino Transf (AST/SGOT) 25 U/L (15-37) 28 U/L (15-37) Alanine Aminotransferase (ALT/SGPT) 9 U/L (12-78) 9 U/L (12-78) Alkaline Phosphatase 156 U/L (46-116) 193 U/L (46-116) C-Reactive Protein, Quantitative 18.5 mg/dL (0.00-0.90) 17.1 mg/dL (0.00-0.90) Pro-B-Type Natriuretic Peptide > 23949 pg/mL (0-125) > 30415 pg/mL (0-125) Total Protein 6.7 G/DL (6.4-8.2) 7.0 G/DL (6.4-8.2) Albumin 1.8 G/DL (3.4-5.0) 1.9 G/DL (3.4-5.0) Globulin 4.9 g/dL 5.1 g/dL Albumin/Globulin Ratio 0.4 (1.0-2.7) 0.4 (1.0-2.7) Height (Feet): 5 Height (Inches): 6.00 Weight (Pounds): 150 Objective Physical Exam: Vitals: reviewed General: NAD HEENT: nc, at Neck: supple ++trach/vent Chest: clear breath sounds bilaterally Cardiovascular: RRR, no s3, s4 Abdomen: soft, nontender, nd +gtube Extremities: no cce, normal range of motion Neuro: alert Evan Muhammad MD Feb 10, 2020 06:47
--- NOTE | 2020-02-10 07:08 | NUR ---
NURSE HAND-OFF REPORT: Important Events on Shift:Jose C Sen Patient Status: fair Diet: Nepro Pending Orders: Pending Results/Labs: Pending MD notification: Latest Vital Signs: Temperature 98.9 , Pulse 68 , B/P 145 /62 , Respiratory Rate 17 , O2 SAT 99 , Mechanical Ventilator, O2 Flow Rate . Vital Sign Comment: EKG Rhythm: Sinus Rhythm Rhythm change?: N MD Notified?: MD Response: Latest [place] Fall Score: 50 Fall Risk: High Risk Safety Measures: Call light Within Reach, Bed Alarm Zone 1, Side Rails Side Rails x2, Bed position Low and Locked. Fall Precautions: Yellow Socks Report given to Jose C Sen - aware to f/u on any abnormal am labs. Addendum: 02/10/20 at 0712 by SINTIA AMAYA RN RN correction to note above- important events- fever- resolved.
--- NOTE | 2020-02-10 07:27 | NUR ---
NURSE NOTES: Received report from ERASMO Ruiz. Patient is resting in bed in stable condition. No s/sx of SOB, breathing is even and unlabored, on vent with vent settings as ordered. Patient denies any presence of pain or discomfort at this time. Bed is in lowest position, brakes engaged. Call light is kept within easy reach. Will continue to monitor patient.
[2020-02-10 07:59] VITALS: BP 137/60
--- NOTE | 2020-02-10 08:07 | General Progress Note ---
Subjective ROS Limited/Unobtainable: No Allergies: Coded Allergies: No Known Allergies (Unverified , 10/10/17) Objective Last 24 Hour Vital Signs Date Time Temp Pulse Resp B/P (MAP) Pulse Ox O2 Delivery O2 Flow Rate FiO2 02/10/20 07:59 98.6 67 17 137/60 (85) 95 02/10/20 05:41 98.9 02/10/20 05:06 145/62 02/10/20 04:00 98.2 68 17 143/61 (88) 99 02/10/20 04:00 40 02/10/20 04:00 Mechanical Ventilator Mechanical Ventilator 02/10/20 03:20 74 02/10/20 02:44 72 22 40 02/10/20 00:00 98.0 75 20 147/63 (91) 98 02/10/20 00:00 40 02/10/20 00:00 Mechanical Ventilator Mechanical Ventilator 02/09/20 23:55 72 02/09/20 23:03 132/67 02/09/20 22:49 77 14 40 02/09/20 20:34 59 128/62 02/09/20 20:00 40 02/09/20 20:00 98.1 59 18 128/62 (84) 98 02/09/20 20:00 Mechanical Ventilator Mechanical Ventilator 02/09/20 19:21 68 02/09/20 18:50 73 18 40 02/09/20 17:40 151/63 02/09/20 17:39 151/63 02/09/20 17:39 68 151/63 02/09/20 16:00 98.2 70 18 144/81 (102) 97 02/09/20 16:00 40 02/09/20 16:00 Mechanical Ventilator Mechanical Ventilator 02/09/20 15:38 71 02/09/20 15:07 72 20 40 02/09/20 12:11 149/107 02/09/20 12:10 149/107 02/09/20 12:00 98.4 63 19 154/65 (94) 98 02/09/20 12:00 40 02/09/20 12:00 Mechanical Ventilator Mechanical Ventilator 02/09/20 11:31 66 02/09/20 11:12 72 20 40 02/09/20 08:20 145/64 02/09/20 08:19 68 145/64 02/09/20 08:18 68 145/64 Intake and Output 02/09/20 02/10/20 19:00 07:00 Intake Total 660 ml 470 ml Output Total 250 ml 325 ml Balance 410 ml 145 ml Free Water 240 ml 50 ml Tube Feeding 420 ml 420 ml Output Urine Total 250 ml 325 ml # Bowel Movements 1 4 Laboratory Tests 02/09/20 08:15: White Blood Count 7.8, Red Blood Count 3.18L, Hemoglobin 8.8L, Hematocrit 25.3L, Mean Corpuscular Volume 80, Mean Corpuscular Hemoglobin 27.8, Mean Corpuscular Hemoglobin Concent 34.9, Red Cell Distribution Width 16.8H, Platelet Count 388, Mean Platelet Volume 5.7L, Neutrophils (%) (Auto) 74.2, Lymphocytes (%) (Auto) 16.9L, Monocytes (%) (Auto) 6.8, Eosinophils (%) (Auto) 1.5, Basophils (%) (Auto) 0.7, Sodium Level 137, Potassium Level 3.5, Chloride Level 99, Carbon Dioxide Level 31, Anion Gap 7, Blood Urea Nitrogen 44H, Creatinine 2.6H, Estimat Glomerular Filtration Rate 19.7, Glucose Level 93, Uric Acid 3.1, Calcium Level 8.5, Phosphorus Level 2.9, Total Bilirubin 0.4, Aspartate Amino Transf (AST/SGOT) 28, Alanine Aminotransferase (ALT/SGPT) 9L, Alkaline Phosphatase 193H , C-Reactive Protein, Quantitative 17.1H, Pro-B-Type Natriuretic Peptide > 56550F, Total Protein 7.0, Albumin 1.9L, Globulin 5.1, Albumin/Globulin Ratio 0.4L, Vitamin D 25-Hydroxy [Pending], 25-Hydroxy Vitamin D2 [Pending], 25-Hydrox y Vitamin D3 [Pending] Height (Feet): 5 Height (Inches): 6.00 Weight (Pounds): 150 General Appearance: no apparent distress EENT: normal ENT inspection Neck: supple Cardiovascular: normal rate Respiratory/Chest: decreased breath sounds Abdomen: normal bowel sounds, non tender, soft Extremities: non-tender Assessment/Plan Problem List: (1) Hx of CABG ICD Codes: Z95.1 - Presence of aortocoronary bypass graft SNOMED: 285382784, 228422721 (2) History of tracheostomy ICD Codes: Z98.890 - Other specified postprocedural states SNOMED: 268855910, 072118799 (3) PEG (percutaneous endoscopic gastrostomy) status ICD Codes: Z93.1 - Gastrostomy status SNOMED: 916116427, 066655915 (4) S/P aortic dissection repair ICD Codes: Z98.890 - Other specified postprocedural states SNOMED: 009963962, 626346857 (5) Renal failure ICD Codes: N19 - Unspecified kidney failure SNOMED: 65252639, 867362852 (6) Anemia ICD Codes: D64.9 - Anemia, unspecified SNOMED: 754913136 Assessment/Plan: stable H&H repeat stool ob GTF some GT leak reglan topical Zinc oxide HD per nephrology persistent elevated lipase\ ct reviewed s/p one unit prbc cbc in am Inder Mccauley MD Feb 10, 2020 08:07
--- NOTE | 2020-02-10 08:12 | Infectious Diseases Prog Note ---
Assessment/Plan 49yo F with: AF Sepsis Leukocytosis Hypoxia on vent Pneumonia c/b L pleural effusion (recurrent, prior determined to be transudative) - s/p thora 01/21, 1050cc removed Volume overload, BNP >35,0000, likely 2/2 progressive CKD --> ESRD ?Pancreatitis, Lipase >2000 Acute anemia to 5s CONS bacteremia, ?contaminant Aflutter w/ RVR 01/13 BCx 2/2 +S. epi COVID PCR neg Flu neg CXR: Large left pleural effusion. Bilateral interstitial and airspace infiltrates versus edema MRSA nares neg 01/16 BCx NTD 01/17 BCx /2 +Staph auricularis (skin colonizer) 01/18 Resp cx +MDR CRE PsA (S-gent, I-colistin, R-polyB) 01/18 C.dif neg 01/18 CXR: Similar opacification of the left hemithorax likely representing combination of pleural effusion with atelectasis versus pneumonia/edema. Decreased but persistent hazy opacity throughout the right lung may represent edema versus infectious/inflammatory process. 01/20 BCx NTD 01/21 L thora 1050 cc removed, cx NTD 01/25 Wound cx from Gtube site +CRE Kleb pna (arnett-R) and MDR PsA (colonizers) 01/26 CT A/P: Limited exam, due to severe diffuse anasarca. Ascites. Bilateral pleural effusions. Basilar pulmonary atelectatic changes and consolidation. Gastrostomy. Atrophic left kidney with a nephroureteral stents again demonstrated. Possible retrococcygeal decubitus changes. Correlate with clinical findings, consider MRI if there is concern for sacral osteomyelitis. Right hip intertrochanteric fracture, also previously demonstrated. Left femoral dialysis catheter. Nonspecific right lobe liver lesion is unchanged, not well- demonstrated. ctasia bordering on aneurysmal dilatation and possible chronic dissection of the distal thoracic aorta, also previously described. JAVIER on CKD On previous admission Sep-Oct 2019 required HD for short period Going to start HD this admission again R/o COVID / COVID PCR neg 12/[address] [facility] per report H/o UTI 10/15 u/a wbc 30-40, nit neg, leuk +3; ucx ESBL P. mirablis, ESBL M. morganii //20 u/a wbc tnct, nit neg, leuk +3; ucx >100k MDR P. stuarti (S Ceftriaxone, Meropenem) 10/07 u/a wbc tnct, nit neg, leuk ; ucx >100k VRE 10/15/19 u/a wbc tnct; ucx >100k ESBL P. stuarti (S ertapenem, aztreonam) H/o transudative pleural effusion 11/28 Sp Thora (w: 169, PMN: 2%, L: 49% , LDH: 57, prot 2.5); cx Neg H/o PNA 10/15/19 Resp cx ESBL P. mirabilis, MDR P.a. (S only to Gent) 09/22 Resp cx + MDR PsA (S-gent; I-colistin; R-levofloxacin, Zosyn, angelo) 09/16/19 Sp cx ESBL P. mirablis H/o PPM site (pocket) infection and pocket abscess 2ry to S. epi-11/2018, sp >6weeks IV vancomycin 11/27 SP ABBIE: no evidence for vegetation on any of the valves 11/26/18 SP PPM removal: OR findings:The fibrous capsule enclosing the generator was then opened and there was a [id number] amount of yellowish fluid drainage. The generator was then removed.Atrial and ventricular leads were detached. The necrotic tissue of the pocket was then removed and the pocket was flushed with an antibiotic solution. Capsule, wound tissue and lead tip cx: Neg 2d echo: no vegetation seen US chest: 4.6 x 3.4 x 0.9 cm hypoechoic/anechoic area overlying left chest pacemaker power pack. This could represent either a discrete fluid collection or a focal area of very edematous tissue. Infected fluid pocket also possible. 11/18 Bcx 3/4 S. epi; 11/20 Bcx neg; 11/24 Bcx Neg; 11/27 Bcx Neg CAD s/p CABG GERD/gastritis Afib HTN Dysphagia sp GT Aortic dissection s/p repair 2017 S/p PPM Parkinson's Disease Schizophrenia Anxiety COPD Chronic resp failure s/p trach Hx of tracheal bleeding [place] resident ([facility]) VRE and MRSA colonized Plan: Cont to monitor off abx OK to d/c from ID standpoint Wound not treat CRE Kleb pna nor MDR PsA from G-tube cx, likely colonizer and no signs of active infection in that area 01/31 SP angelo/inh tobra #10 for pna 01/23 SP vanco IV #10 given CONS/GPC bacteremia 01/16 SP Zosyn #2 01/14 SP dex 10mg in ED 12/10 SP IV Gentamycin #10 12/07 SP Meropenem #10 12/01 SP IV Vancomycin #5 11/28 Sp Cefepime #2 and IV Gentamycin x1 Monitor CBC/CMP Monitor temp curve, hemodynamics Monitor resp status D/w RN Thank you for this consult. [facility] will continue to follow. Subjective Allergies: Coded Allergies: No Known Allergies (Unverified , 10/10/17) AF NAD on vent 40% PEEP 5 Off abx Objective Last 24 Hour Vital Signs Date Time Temp Pulse Resp B/P (MAP) Pulse Ox O2 Delivery O2 Flow Rate FiO2 02/10/20 07:59 98.6 67 17 137/60 (85) 95 02/10/20 05:41 98.9 02/10/20 05:06 145/62 02/10/20 04:00 98.2 68 17 143/61 (88) 99 02/10/20 04:00 40 02/10/20 04:00 Mechanical Ventilator Mechanical Ventilator 02/10/20 03:20 74 02/10/20 02:44 72 22 40 02/10/20 00:00 98.0 75 20 147/63 (91) 98 02/10/20 00:00 40 02/10/20 00:00 Mechanical Ventilator Mechanical Ventilator 02/09/20 23:55 72 02/09/20 23:03 132/67 02/09/20 22:49 77 14 40 02/09/20 20:34 59 128/62 02/09/20 20:00 40 02/09/20 20:00 98.1 59 18 128/62 (84) 98 02/09/20 20:00 Mechanical Ventilator Mechanical Ventilator 02/09/20 19:21 68 02/09/20 18:50 73 18 40 02/09/20 17:40 151/63 02/09/20 17:39 151/63 02/09/20 17:39 68 151/63 02/09/20 16:00 98.2 70 18 144/81 (102) 97 02/09/20 16:00 40 02/09/20 16:00 Mechanical Ventilator Mechanical Ventilator 02/09/20 15:38 71 02/09/20 15:07 72 20 40 02/09/20 12:11 149/107 02/09/20 12:10 149/107 02/09/20 12:00 98.4 63 19 154/65 (94) 98 02/09/20 12:00 40 02/09/20 12:00 Mechanical Ventilator Mechanical Ventilator 02/09/20 11:31 66 02/09/20 11:12 72 20 40 02/09/20 08:20 145/64 02/09/20 08:19 68 145/64 02/09/20 08:18 68 145/64 Height (Feet): 5 Height (Inches): 6.00 Weight (Pounds): 150 Gen: NAD HEENT: NCAT, +trach CV: RRR Pulm: CTAB on vent Abd: Non-distended, +PEG with skin intact wo erythema or discharge, but brownish discharge on dressing Ext: No c/c/e Skin: No visible rashes Neuro: Awake, minimally interactive Lines: L fem HD cath Laboratory Tests Test 02/09/20 08:15 White Blood Count 7.8 K/UL (4.8-10.8) Red Blood Count 3.18 M/UL (4.20-5.40) L Hemoglobin 8.8 G/DL (12.0-16.0) L Hematocrit 25.3 % (37.0-47.0) L Mean Corpuscular Volume 80 FL (80-99) Mean Corpuscular Hemoglobin 27.8 PG (27.0-31.0) Mean Corpuscular Hemoglobin Concent 34.9 G/DL (32.0-36.0) Red Cell Distribution Width 16.8 % (11.6-14.8) H Platelet Count 388 K/UL (150-450) Mean Platelet Volume 5.7 FL (6.5-10.1) L Neutrophils (%) (Auto) 74.2 % (45.0-75.0) Lymphocytes (%) (Auto) 16.9 % (20.0-45.0) L Monocytes (%) (Auto) 6.8 % (1.0-10.0) Eosinophils (%) (Auto) 1.5 % (0.0-3.0) Basophils (%) (Auto) 0.7 % (0.0-2.0) Sodium Level 137 MMOL/L (136-145) Potassium Level 3.5 MMOL/L (3.5-5.1) Chloride Level 99 MMOL/L (98-107) Carbon Dioxide Level 31 MMOL/L (21-32) Anion Gap 7 mmol/L (5-15) Blood Urea Nitrogen 44 mg/dL (7-18) H Creatinine 2.6 MG/DL (0.55-1.30) H Estimat Glomerular Filtration Rate 19.7 mL/min (>60) Glucose Level 93 MG/DL (74-106) Uric Acid 3.1 MG/DL (2.6-7.2) Calcium Level 8.5 MG/DL (8.5-10.1) Phosphorus Level 2.9 MG/DL (2.5-4.9) Total Bilirubin 0.4 MG/DL (0.2-1.0) Aspartate Amino Transf (AST/SGOT) 28 U/L (15-37) Alanine Aminotransferase (ALT/SGPT) 9 U/L (12-78) L Alkaline Phosphatase 193 U/L (46-116) H C-Reactive Protein, Quantitative 17.1 mg/dL (0.00-0.90) H Pro-B-Type Natriuretic Peptide > 45043 pg/mL (0-125) H Total Protein 7.0 G/DL (6.4-8.2) Albumin 1.9 G/DL (3.4-5.0) L Globulin 5.1 g/dL Albumin/Globulin Ratio 0.4 (1.0-2.7) L Vitamin D 25-Hydroxy Pending 25-Hydroxy Vitamin D2 Pending 25-Hydroxy Vitamin D3 Pending Current Medications Medications (Trade) Dose Ordered Sig/Penny Route PRN Reason Start Time Stop Time Status Last Admin Dose Admin Acetaminophen (Tylenol) 500 mg Q6H PRN GT FEVER 01/21/20 20:45 02/20/20 20:44 02/10/20 05:11 Acetaminophen (Tylenol) 650 mg Q6H PRN GT For Pain 02/09/20 17:15 03/10/20 17:14 02/09/20 17:39 Acetaminophen/ Hydrocodone Bitart ([place] 5/325) 1 tab Q6H PRN ORAL For Pain 02/07/20 11:00 02/14/20 10:59 02/09/20 00:15 Amantadine HCl (Symmetrel) 100 mg TWICE A DAY GT 01/31/20 18:00 03/01/20 17:59 02/09/20 17:39 Amlodipine Besylate (Norvasc) 5 mg BID GT 01/22/20 18:00 02/20/20 15:44 02/09/20 17:39 Aspirin (ASA) 81 mg DAILY GT 01/20/20 09:00 03/05/20 08:59 02/09/20 08:20 Atorvastatin Calcium (Lipitor) 10 mg BEDTIME GT 01/17/20 21:00 04/16/20 20:59 02/09/20 20:09 Chlorhexidine Gluconate (Ling-Hex 2%) 1 applic DAILY@1999 TOPIC 01/17/20 20:00 04/16/20 19:59 02/09/20 20:10 Dextrose (Dextrose 50%) 25 ml Q30M PRN IV Hypoglycemia 01/15/20 22:15 04/14/20 22:14 Dextrose (Dextrose 50%) 50 ml Q30M PRN IV Hypoglycemia 01/15/20 22:15 04/14/20 22:14 01/22/20 17:54 Docusate Sodium (Colace) 200 mg BIDPRN PRN GT Constipation 01/31/20 07:45 03/01/20 07:44 02/04/20 11:21 Epoetin Gelacio (Epoetin Gelacio(ESRD on dialysis)) 10,000 unit MON-MON-MON SUBQ 01/27/20 21:00 04/26/20 20:59 02/05/20 21:05 Hydralazine HCl (Apresoline) 25 mg Q6HR GT 01/26/20 18:15 04/25/20 18:14 02/10/20 05:06 Isosorbide Dinitrate (Isordil) 20 mg TID GT 01/25/20 09:00 02/19/20 08:59 02/09/20 17:39 Lactulose (Cephulac) 20 gm THREE TIMES A DAY GT 02/04/20 13:00 03/05/20 12:59 02/09/20 17:39 Lansoprazole (Prevacid) 30 mg BID GT 01/19/20 18:00 02/18/20 17:59 02/09/20 17:40 Metoclopramide HCl (Reglan) 5 mg Q6HR IVP 02/05/20 07:00 03/06/20 06:59 02/10/20 05:06 Metoprolol Tartrate (Lopressor) 25 mg Q12HR ORAL 01/27/20 21:00 04/22/20 20:59 02/09/20 08:19 Polyethylene Glycol (Miralax) 17 gm BEDTIME GT 02/04/20 21:00 03/05/20 20:59 02/09/20 20:10 Sodium Hypochlorite (Dakin's Quarter Strength) 1 applic DAILY TOPIC 01/30/20 09:00 02/29/20 08:59 02/09/20 08:21 Zinc Oxide (Zinc Oxide) 1 applic TIDPRN PRN TOPIC diogenes GT 01/16/20 13:15 04/15/20 13:14 01/16/20 14:55 Ro Pack M.D. Feb 10, 2020 08:11
[2020-02-10] MEDS: Amantadine 100mg cap GT SCH ×2 (08:15→17:04)
[2020-02-10] MEDS: Lactulose 20gm/30ml UDC GT SCH ×3 (08:15→17:03)
[2020-02-10] MEDS: Dakin's 0.125% Soln (Quarter Strength) 16oz TOPIC SCH (08:16)
[2020-02-10] MEDS: Aspirin Baby 81mg GT SCH (08:16)
--- NOTE | 2020-02-10 09:35 | NUR ---
RD ASSESSMENT & RECOMMENDATIONS SEE CARE ACTIVITY FOR COMPLETE ASSESSMENT DAILY ESTIMATED NEEDS: Needs based on Critical care, wound, renal dysfunction 56 kg abw 28-33 kcals/kg 4407-0640 total kcals W/ HD (1.5-2.0) g protein/kg 84-112 g total protein Fluid per MD NUTRITION DIAGNOSIS: * Swallowing difficulty R/T dysphagia, respiratory status as evidenced by vent dep via trach, GT Dep. * Increase kcal and pro needs r/t wound healing, renal dysfunction as evidenced by admitted w/ stage 4 sacral wound, admitted w/ JAVIER, now on HD. CURRENT TF: Nepro @ 40ml/hr x 24 hrs-> now @35ml/hr ENTERAL NUTRITION RECOMMENDATIONS: Nepro @ 40ml/hr x 24 hrs + Prosource 1pkt QD to provide 960ml, 1728kcal, 78g+11g prot, 698ml free water * As medically appropriate, increase TF goal rate to 40ml/hr x 24 hrs * Add Prosource 1pkt QD to better meet increased protein needs (additional 11g prot) * Water flush per MD/ HOB over 30 degrees ADDITIONAL RECOMMENDATIONS: * Per SNF in NOV 2019: HT=63"/ Rec daily calibrated bedscale wt * Monitor for continuity of HD, last HD 02/07 * Rec phos binders- consistently elevated phos level -> now wnl * Wound care: add Nephrovite x 1, ZnSO4 220mg QD x 10 days Reynaldo BID via PEG (mix w/ 2-4 oz water); vit C per nephro * Monitor TF tolerance: TF lowered for GT leak, increase as able * Add bowel regimen: now added, last BM 02/09
--- NOTE | 2020-02-10 10:54 | Nephrology Progress Note ---
Assessment/Plan Problem List: (1) ARF (acute renal failure) (2) Pacemaker (3) Sepsis (4) Hyponatremia Assessment (1) JAVIER (acute kidney injury) (2) Renal failure (ARF), acute on chronic (3) Feeding by G-tube (4) Tracheostomy in place (5) Electrolyte imbalance, hyponatremia (6) Anemia, severe (7) Respiratory failure, acute and chronic (8) Elevated lipase, pancreatitis (9) Elevated troponin I (10) Sepsis Plan February 09: No labs drawn today. Last dialysis February 07. Will check lab tomorrow. Hemodialysis as needed. February 08: Labs reviewed. Dialyzed yesterday. Stable from renal standpoint of view. Continue to monitor electrolytes and order dialysis as needed. February 07: Labs reviewed. Due for dialysis today. Continue per consultants. February 06: Labs reviewed. Last dialysis February 03. Will postpone today's dialysis to tomorrow. Continue per current treatment plan. February 05: Labs reviewed. Last dialysis February 03. Will order dialysis tomorrow. Waiting for tunneled catheter placement. February 04: Labs reviewed. Dialyzed yesterday. With a plan for insertion of a tunneled dialysis catheter and discontinue left groin dialysis catheter afterwards. Check labs in a.m. Discussed with Dr. Dong. February 03: Labs reviewed. Due for dialysis today. Continue per consultants. February 02: Labs reviewed. Will order dialysis tomorrow. Continue per consultants. February 01: Labs reviewed. Creatinine gradually rising. Will dialyze as needed. Continue to monitor renal parameters. January 31: Last dialysis January 29. Labs reviewed. No need for dialysis today. Continue per current management. Hemodialysis as needed. Will check renal parameters and chemistries tomorrow. January 30: Patient was dialyzed yesterday. No labs drawn today. Continue to monitor renal parameters and dialyze as needed. Continue per consultants and PMD. January 29: Patient due for dialysis today. Today's can panel reviewed. Continue to monitor renal parameters and dialysis as needed. January 28: Patient last dialyzed January 26. No labs drawn today. Will order dialysis tomorrow. Check chemistry panel tomorrow. Continue per consultants. January 27: Patient was dialyzed yesterday . Labs were reviewed. Electrolytes within normal limit. Blood pressure stable. January 26: When visited the patient earlier today the patient was on dialysis. Tolerating well. Labs reviewed. Blood pressure stable. January 25: Dialysis for tomorrow. Labs reviewed. Hemoglobin remains low. Will adjust blood pressure medication. Hydralazine added to the regimen January 24: Last dialyzed January 22. Labs reviewed. Status quo. Will dialyze as needed. Low hemoglobin noted. Transfusion per PMD decision. Epogen started. \January 23: Dialyzed yesterday. Today's labs reviewed. Continue to monitor renal parameters and arrange for dialysis as needed. Continue per PMD. January 22: Seen earlier during dialysis. Labs reviewed. Medication list reviewed. Continue current management. January 21: Labs reviewed. Medication list reviewed. Next hemodialysis t omorrow. Blood pressure medication adjusted. January 20: Dialyzed yesterday. Labs reviewed. Continue per current management. Dialysis as needed. Add Norvasc to blood pressure regimen January 19: Due for dialysis today. Labs reviewed. Continue her current management. Continue to monitor renal parameters and electrolytes. January 18: Dialyzed yesterday. Labs reviewed. Renal parameters electrolytes much improved. Dialysis again tomorrow. Continue rest. January 17: Dialyzed this morning. Labs reviewed. Renal parameters and electrolyte abnormalities improved. Discussed with RN. Continue per consultants. January 16: Dialyzed yesterday. Labs improved. Next dialysis tomorrow. Continue per consultants. January 15: Patient to have dialysis catheter. Emergency dialysis for correction of uremia and electrolyte imbalances Antibiotics Transfusion Continue to monitor renal parameters Per orders Discussed with RN Subjective ROS Limited/Unobtainable: Yes Objective Objective Last 24 Hour Vital Signs Date Time Temp Pulse Resp B/P (MAP) Pulse Ox O2 Delivery O2 Flow Rate FiO2 02/10/20 09:50 72 125/60 02/10/20 08:16 137/60 02/10/20 08:16 67 137/60 02/10/20 08:00 40 02/10/20 08:00 Mechanical Ventilator Mechanical Ventilator 02/10/20 08:00 68 02/10/20 07:59 98.6 67 17 137/60 (85) 95 02/10/20 07:28 67 16 40 02/10/20 05:41 98.9 02/10/20 05:06 145/62 02/10/20 04:00 98.2 68 17 143/61 (88) 99 02/10/20 04:00 40 02/10/20 04:00 Mechanical Ventilator Mechanical Ventilator 02/10/20 03:20 74 02/10/20 02:44 72 22 40 02/10/20 00:00 98.0 75 20 147/63 (91) 98 02/10/20 00:00 40 02/10/20 00:00 Mechanical Ventilator Mechanical Ventilator 02/09/20 23:55 72 02/09/20 23:03 132/67 02/09/20 22:49 77 14 40 02/09/20 20:34 59 128/62 02/09/20 20:00 40 02/09/20 20:00 98.1 59 18 128/62 (84) 98 02/09/20 20:00 Mechanical Ventilator Mechanical Ventilator 02/09/20 19:21 68 02/09/20 18:50 73 18 40 02/09/20 17:40 151/63 02/09/20 17:39 151/63 02/09/20 17:39 68 151/63 02/09/20 16:00 98.2 70 18 144/81 (102) 97 02/09/20 16:00 40 02/09/20 16:00 Mechanical Ventilator Mechanical Ventilator 02/09/20 15:38 71 02/09/20 15:07 72 20 40 02/09/20 12:11 149/107 02/09/20 12:10 149/107 02/09/20 12:00 98.4 63 19 154/65 (94) 98 02/09/20 12:00 40 02/09/20 12:00 Mechanical Ventilator Mechanical Ventilator 02/09/20 11:31 66 02/09/20 11:12 72 20 40 Intake and Output 02/09/20 02/10/20 19:00 07:00 Intake Total 660 ml 470 ml Output Total 250 ml 325 ml Balance 410 ml 145 ml Free Water 240 ml 50 ml Tube Feeding 420 ml 420 ml Output Urine Total 250 ml 325 ml # Bowel Movements 1 4 Height (Feet): 5 Height (Inches): 6.00 Weight (Pounds): 150 General Appearance: no apparent distress EENT: other - Trach to vent Cardiovascular: normal rate Respiratory/Chest: decreased breath sounds Abdomen: soft Objective No change Johnny Houston MD Feb 10, 2020 10:54
[2020-02-10 12:00] VITALS: BP 143/63
--- NOTE | 2020-02-10 12:40 | NUR ---
NURSE NOTES: Dr. Saavedra seen and examined patient at bedside, left femoral arden non-tunneled dialysis catheter discontinued, pressure dressing noted at site, no active bleeding noted. Will continue to monitor patient.
--- NOTE | 2020-02-10 13:00 | NUR ---
NURSE NOTES: Reassessed former left femoral arden non-tunnel catheter site, no active bleeding noted, pressure dressing noted intact. Will continue to monitor patient.
--- NOTE | 2020-02-10 13:18 | NUR ---
DISCHARGE PLANNING CLINICALS FAXED TO [facility] [phone]
--- NOTE | 2020-02-10 13:41 | NUR ---
[employer]INE[employer] SI; RESP FAILURE TRACH/VENT DEPENDENT, JAVIER T. 98.6 HR 66 RR 14 B/P 143/65 AC 14 TV 500 FIO2 40% PEEP 5 BUN 44 CR 2.6 BNP>35,000 ALB 1.9 IS: REGLAN IV LACTULOSE GT PLACEMENT PENDING STEP DOWN STATUS
[2020-02-10] MEDS: HYDROcodone/Acetamin 5/325 tab ORAL PRN ×2 (14:54→23:44)
[2020-02-10 16:00] VITALS: BP 131/60
--- NOTE | 2020-02-10 16:44 | Pulmonology Progress Note ---
Subjective ROS Limited/Unobtainable: Yes Interval Events: None new Constitutional: Reports: no symptoms HEENT: Repors: no symptoms Respiratory: Reports: no symptoms Cardiovascular: Reports: no symptoms Gastrointestinal/Abdominal: Reports: no symptoms Allergies: Coded Allergies: No Known Allergies (Unverified , 10/10/17) All Systems: reviewed and negative except above Objective Last 24 Hour Vital Signs Date Time Temp Pulse Resp B/P (MAP) Pulse Ox O2 Delivery O2 Flow Rate FiO2 02/10/20 16:00 40 02/10/20 16:00 98.2 72 17 131/60 (83) 100 02/10/20 16:00 Mechanical Ventilator Mechanical Ventilator 02/10/20 16:00 66 02/10/20 13:05 141/71 02/10/20 12:13 143/63 02/10/20 12:00 68 02/10/20 12:00 98.6 66 17 143/63 (89) 100 02/10/20 12:00 40 02/10/20 12:00 Mechanical Ventilator Mechanical Ventilator 02/10/20 09:50 72 125/60 02/10/20 08:16 137/60 02/10/20 08:16 67 137/60 02/10/20 08:00 40 02/10/20 08:00 Mechanical Ventilator Mechanical Ventilator 02/10/20 08:00 68 02/10/20 07:59 98.6 67 17 137/60 (85) 95 02/10/20 07:28 67 16 40 02/10/20 05:41 98.9 02/10/20 05:06 145/62 02/10/20 04:00 98.2 68 17 143/61 (88) 99 02/10/20 04:00 40 02/10/20 04:00 Mechanical Ventilator Mechanical Ventilator 02/10/20 03:20 74 02/10/20 02:44 72 22 40 02/10/20 00:00 98.0 75 20 147/63 (91) 98 02/10/20 00:00 40 02/10/20 00:00 Mechanical Ventilator Mechanical Ventilator 02/09/20 23:55 72 02/09/20 23:03 132/67 02/09/20 22:49 77 14 40 02/09/20 20:34 59 128/62 02/09/20 20:00 40 02/09/20 20:00 98.1 59 18 128/62 (84) 98 02/09/20 20:00 Mechanical Ventilator Mechanical Ventilator 02/09/20 19:21 68 02/09/20 18:50 73 18 40 02/09/20 17:40 151/63 02/09/20 17:39 151/63 02/09/20 17:39 68 151/63 Intake and Output 02/09/20 02/10/20 19:00 07:00 Intake Total 660 ml 470 ml Output Total 250 ml 325 ml Balance 410 ml 145 ml Free Water 240 ml 50 ml Tube Feeding 420 ml 420 ml Output Urine Total 250 ml 325 ml # Bowel Movements 1 4 General Appearance: no acute distress HEENT: normocephalic, other - trach Respiratory: chest wall non-tender, other - coarse lung sounds Cardiovascular: normal rate, regular rhythm Abdomen: soft, non tender Genitourinary: other - [place] Extremities: other - trace edema Current Medications Medications (Trade) Dose Ordered Sig/Penny Route PRN Reason Start Time Stop Time Status Last Admin Dose Admin Acetaminophen (Tylenol) 500 mg Q6H PRN GT FEVER 01/21/20 20:45 02/20/20 20:44 02/10/20 05:11 Acetaminophen (Tylenol) 650 mg Q6H PRN GT For Pain 02/09/20 17:15 03/10/20 17:14 02/09/20 17:39 Acetaminophen/ Hydrocodone Bitart ([place] 5/325) 1 tab Q6H PRN ORAL For Pain 02/07/20 11:00 02/14/20 10:59 02/10/20 14:54 Amantadine HCl (Symmetrel) 100 mg TWICE A DAY GT 01/31/20 18:00 03/01/20 17:59 02/10/20 08:15 Amlodipine Besylate (Norvasc) 5 mg BID GT 01/22/20 18:00 02/20/20 15:44 02/10/20 08:16 Aspirin (ASA) 81 mg DAILY GT 01/20/20 09:00 03/05/20 08:59 02/10/20 08:16 Atorvastatin Calcium (Lipitor) 10 mg BEDTIME GT 01/17/20 21:00 04/16/20 20:59 02/09/20 20:09 Chlorhexidine Gluconate (Ling-Hex 2%) 1 applic DAILY@1999 TOPIC 01/17/20 20:00 04/16/20 19:59 02/09/20 20:10 Dextrose (Dextrose 50%) 25 ml Q30M PRN IV Hypoglycemia 01/15/20 22:15 04/14/20 22:14 Dextrose (Dextrose 50%) 50 ml Q30M PRN IV Hypoglycemia 01/15/20 22:15 04/14/20 22:14 01/22/20 17:54 Docusate Sodium (Colace) 200 mg BIDPRN PRN GT Constipation 01/31/20 07:45 03/01/20 07:44 02/04/20 11:21 Epoetin Gelacio (Epoetin Gelacio(ESRD on dialysis)) 10,000 unit SUBQ 01/27/20 21:00 04/26/20 20:59 02/05/20 21:05 Hydralazine HCl (Apresoline) 25 mg Q6HR GT 01/26/20 18:15 04/25/20 18:14 02/10/20 12:13 Isosorbide Dinitrate (Isordil) 20 mg TID GT 01/25/20 09:00 02/19/20 08:59 02/10/20 13:05 Lactulose (Cephulac) 20 gm THREE TIMES A DAY GT 02/04/20 13:00 03/05/20 12:59 02/10/20 13:05 Lansoprazole (Prevacid) 30 mg BID GT 01/19/20 18:00 02/18/20 17:59 02/10/20 08:15 Metoclopramide HCl (Reglan) 5 mg Q6HR IVP 02/05/20 07:00 03/06/20 06:59 02/10/20 12:12 Metoprolol Tartrate (Lopressor) 25 mg Q12HR ORAL 01/27/20 21:00 04/22/20 20:59 02/10/20 09:50 Polyethylene Glycol (Miralax) 17 gm BEDTIME GT 02/04/20 21:00 03/05/20 20:59 02/09/20 20:10 Sodium Hypochlorite (Dakin's Quarter Strength) 1 applic DAILY TOPIC 01/30/20 09:00 02/29/20 08:59 02/10/20 08:16 Zinc Oxide (Zinc Oxide) 1 applic TIDPRN PRN TOPIC diogenes GT 01/16/20 13:15 04/15/20 13:14 01/16/20 14:55 Assessment/Plan Assessment/Plan Assessment/Plan 1. Large left effusion. - S/p thoracentesis; CXR better - pleural fluid pathology report: negative for malignant cell 2. Chronic respiratory failure. - Continue trach care - Cont AC mode - Currently saturating at 97% 3. Sepsis; improving 4. Anemia - improving - s/p transfusion - s/p Epogen - repeat stool OB pending per Dr. Mccauley s/p HD on broad-spectrum antibiotics. Pulmonary hygiene. DVT and GI prophylaxes. Dc planning in place FiO2 increased previously to 60%; now decreased to 40%; will wean further Elijah Hickman MD, MD Feb 10, 2020 16:44
--- NOTE | 2020-02-10 17:00 | NUR ---
NURSE NOTES: Reassessed former left femoral arden non-tunneled catheter site, no active bleeding noted, pressure dressing noted intact. Will continue to monitor patient.
--- NOTE | 2020-02-10 17:20 | Surgery Progress Note ---
Surgery Progress Note Subjective Procedure Performed Left femoral temporary hemodialysis catheter insertion Additional Comments right fem line removed hemostasis noted dressings applied no bleeding at this time Objective Last 24 Hour Vital Signs Date Time Temp Pulse Resp B/P (MAP) Pulse Ox O2 Delivery O2 Flow Rate FiO2 02/10/20 17:04 131/60 02/10/20 17:04 66 131/60 02/10/20 16:00 40 02/10/20 16:00 98.2 72 17 131/60 (83) 100 02/10/20 16:00 Mechanical Ventilator Mechanical Ventilator 02/10/20 16:00 66 02/10/20 15:46 65 14 40 02/10/20 13:05 141/71 02/10/20 12:13 143/63 02/10/20 12:00 68 02/10/20 12:00 98.6 66 17 143/63 (89) 100 02/10/20 12:00 40 02/10/20 12:00 Mechanical Ventilator Mechanical Ventilator 02/10/20 11:46 66 20 40 02/10/20 09:50 72 125/60 02/10/20 08:16 137/60 02/10/20 08:16 67 137/60 02/10/20 08:00 40 02/10/20 08:00 Mechanical Ventilator Mechanical Ventilator 02/10/20 08:00 68 02/10/20 07:59 98.6 67 17 137/60 (85) 95 02/10/20 07:28 67 16 40 02/10/20 05:41 98.9 02/10/20 05:06 145/62 02/10/20 04:00 98.2 68 17 143/61 (88) 99 02/10/20 04:00 40 02/10/20 04:00 Mechanical Ventilator Mechanical Ventilator 02/10/20 03:20 74 02/10/20 02:44 72 22 40 02/10/20 00:00 98.0 75 20 147/63 (91) 98 02/10/20 00:00 40 02/10/20 00:00 Mechanical Ventilator Mechanical Ventilator 02/09/20 23:55 72 02/09/20 23:03 132/67 02/09/20 22:49 77 14 40 02/09/20 20:34 59 128/62 02/09/20 20:00 40 02/09/20 20:00 98.1 59 18 128/62 (84) 98 02/09/20 20:00 Mechanical Ventilator Mechanical Ventilator 02/09/20 19:21 68 02/09/20 18:50 73 18 40 02/09/20 17:40 151/63 02/09/20 17:39 151/63 02/09/20 17:39 68 151/63 I&O Intake and Output 02/09/20 02/10/20 19:00 07:00 Intake Total 660 ml 470 ml Output Total 250 ml 325 ml Balance 410 ml 145 ml Free Water 240 ml 50 ml Tube Feeding 420 ml 420 ml Output Urine Total 250 ml 325 ml # Bowel Movements 1 4 Dressing: dry Cardiovascular: RSR Respiratory: decreased breath sounds Abdomen: soft, non-tender, present bowel sounds Extremities: no tenderness, no cyanosis Laboratory Tests Test 02/09/20 17:43 02/09/20 22:54 02/10/20 05:17 02/10/20 12:28 POC Whole Blood Glucose 82 MG/DL (74-106) 87 MG/DL (74-106) Pending 84 MG/DL (74-106) Plan Problems: (1) Dehydration (2) Acidosis (3) Depression (4) Pleural effusion (5) Respiratory failure (6) Schizophrenia (7) Hypoxia (8) UTI (urinary tract infection) (9) Pneumonia (10) NSTEMI (non-ST elevated myocardial infarction) (11) Tracheostomy in place (12) Feeding by G-tube (13) JAVIER (acute kidney injury) (14) Acute encephalopathy (15) Sacral decubitus ulcer, stage IV (16) Chronic respiratory failure (17) Ascites (18) Bacteremia (19) Hypernatremia (20) Proteinuria (21) Electrolyte imbalance (22) ACS (acute coronary syndrome) (23) Aortic dissection, thoracic (24) Respiratory failure, acute and chronic (25) JAVIER (acute kidney injury) (26) Abrasion of lip, initial encounter (27) COPD with exacerbation (28) Elevated alkaline phosphatase level (29) Renal failure (ARF), acute on chronic (30) HCAP (healthcare-associated pneumonia) (31) GT CLOGGED (32) Elevated lipase (33) Pancreatitis (34) Elevated troponin (35) Hypokalemia (36) Hyponatremia (37) Anemia (38) Renal failure (39) ARF (acute renal failure) (40) Pacemaker (41) Sepsis Assessment & Plan: leukocytosis anemia on HD renal insufficiency wounds addressed pancreatitis cont diet as tolerating trend labs lf'ts okay bleeding from permacath site suture used and hemostasis obtained plan removal of fem line if stable tomorrow pt presented on admission with Tracheostomy ,GT and Multiple Pressure Injuries. Skin assessment of skin under tracheal collar without evidence of skin breakdown. Peristomal GT site excoriated.Moderate amt of dark red sanguineous exudate. Full Thickness Sacral Pressure Injury with undermined borders (L)9 cm x (W)12cm x (D)1.8cm,Undermining clockwise8-9 by 2.2cm @1o'clock,undermining clockwise 1-4 by 1.9 @ 9'oclock Scattered necrotic tissue within wound bed. Borders are loose and necrotic with marginal erythema to outer perimeter of wound. NO elevation in skin temp noted periwound. Wound is malodorous. Small amt Brown exudate noted. Resolving Pressure Injury L Ischium(L)1.5cm x (W)1.5cm. Base of wound is 80% pink epithelial with an area that is moist and pink. NO odor or exudate noted. Bilat foot-drop noted. L Heel is boggy with non-blanchable erythema(L)4cm x (W)4cm. R heel is boggy with non-Blanchable erythema(L)5cm x (W)6cm. Tx.Plan: Cleanse sacral wound with Dakin's 0.125% annie. Loosely pack with Dakin's moistened Kerlix(Attention to undermined borders). Apply Moisture Barrier Paste periwound. Cover with Optifoam drsg. Change Daily and PRN. Apply Cavilon Skin Barrier to R and L Hels. Cover each heel with Optifoam drsg. Change every 7 days and prn. Reposition at least every 2hours or as tolerated. Off-load heels with Pillow. APM/JENNIFER MAttress overlay DAILY ESTIMATED NEEDS: Needs based on Critical care, wound, renal dysfunction 56 kg abw 28-33 kcals/kg 8461-1067 total kcals W/ HD (1.5-2.0) g protein/kg 84-112 g total protein Fluid per MD NUTRITION DIAGNOSIS: * Swallowing difficulty R/T dysphagia, respiratory status as evidenced by vent dep via trach, GT Dep. * Increase kcal and pro needs r/t wound healing, renal dysfunction as evidenced by admitted w/ stage 4 sacral wound, admitted w/ JAVIER, now on HD. CURRENT TF: Nepro @ 40ml/hr x 24 hrs ENTERAL NUTRITION RECOMMENDATIONS: Nepro @ 40ml/hr x 24 hrs + Prosource 1pkt QD to provide 960ml, 1728kcal, 78g+11g prot, 698ml free water * Maintain current TF @ goal as tolerated * Add Prosource 1pkt QD to better meet increased protein needs (additional 11g prot) * Water flush per MD/ HOB over 30 degrees ADDITIONAL RECOMMENDATIONS: * Per SNF in NOV 2019: HT=63"/ Rec daily calibrated bedscale wt * Monitor for continuity of HD, next HD 02/03 * Rec phos binders- consistently elevated phos level * Wound care: add Nephrovite x 1, ZnSO4 220mg QD x 10 days Reynaldo BID via PEG (mix w/ 2-4 oz water); vit C per nephro * Monitor TF tolerance: elev lipase, slowly trending down * Add bowel regimen: no BM x 8 days, last BM on 01/25. (42) Hyponatremia Lane Saavedra Feb 10, 2020 17:20
--- NOTE | 2020-02-10 19:00 | NUR ---
NURSE NOTES: Received report from Mckinley Amezcua RN. pt is seen in semi- crisostomo's position. Pt is alert x 2. Pt can nod when ask, pt is alert to name. Pt open eyes spontaneously. Trach to vent with settings as ordered. O2 sat- 92%, suctioned tracheal secretions. No signs of respiratory distress noted. No pain noted. No anxiety/agitation noted. With raymond noted, intact and patent, d/c'd left femoral arden cath- with no active bleeding noted. Bed in lowest position, call light within reach. Continue to plan of care.
--- NOTE | 2020-02-10 19:20 | NUR ---
NURSE HAND-OFF REPORT: Important Events on Shift: Patient Status: Stable Diet: Nepro 35 ml/hr Pending Orders: None Pending Results/Labs:None Pending MD notification:None Latest Vital Signs: Temperature 98.2 , Pulse 66 , B/P 135 /64 , Respiratory Rate 17 , O2 SAT 100 , Mechanical Ventilator, O2 Flow Rate . Vital Sign Comment: Stable EKG Rhythm: Sinus Rhythm Rhythm change?: N MD Notified?: N -Dr. Екатерина HATFIELD Response: Order Received& Read Back Latest Chavarria Fall Score: 50 Fall Risk: High Risk Safety Measures: Call light Within Reach, Bed Alarm Zone 1, Side Rails Side Rails x2, Bed position Low and Locked. Fall Precautions: Yellow Socks Report given to ERASMO Greene.
[2020-02-10 20:00] VITALS: BP 127/69
[2020-02-10] MEDS: Miralax 17gm pkt GT SCH (20:27)
[2020-02-10] MEDS: Dyna-Hex 2% Top Sol 2oz TOPIC SCH (20:27)
[2020-02-10] MEDS: Epoetin Alfa-EPBX(ESRD on dialysis)10,000 unit/ml vial SUBQ SCH (20:37)
--- NOTE | 2020-02-10 23:55 | NUR ---
NURSE NOTES: Pt is noted with facial grimacing meds given as ordered, repositioned pt, oral secretions suctioned. Not in respiratory distress. o2 sat-95%.
[2020-02-11] VITALS: BP 141/58
--- NOTE | 2020-02-11 02:38 | Cardiology Progress Note ---
Subjective DATE OF SERVICE: Feb 07, 2020 Continues with HD schedule per renal Remains in atrial fibrillation; rates controlled. Occasional PVC's - non- sustained BP range stable Full vent support via trach s/p left thorocentesis 01/22/20 S/P PRBC tx yesterday Objective Last 24 Hour Vital Signs Date Time Temp Pulse Resp B/P (MAP) Pulse Ox O2 Delivery O2 Flow Rate FiO2 02/11/20 00:00 61 02/11/20 00:00 40 02/11/20 00:00 98.1 65 20 141/58 (85) 100 02/11/20 00:00 Mechanical Ventilator Mechanical Ventilator 02/10/20 23:33 137/65 02/10/20 20:31 67 126/67 02/10/20 20:00 40 02/10/20 20:00 Mechanical Ventilator Mechanical Ventilator 02/10/20 20:00 66 02/10/20 20:00 98.6 70 16 127/69 (88) 100 02/10/20 17:59 135/64 02/10/20 17:04 131/60 02/10/20 17:04 66 131/60 02/10/20 16:00 40 02/10/20 16:00 98.2 72 17 131/60 (83) 100 02/10/20 16:00 Mechanical Ventilator Mechanical Ventilator 02/10/20 16:00 66 02/10/20 15:46 65 14 40 02/10/20 13:05 141/71 02/10/20 12:13 143/63 02/10/20 12:00 68 02/10/20 12:00 98.6 66 17 143/63 (89) 100 02/10/20 12:00 40 02/10/20 12:00 Mechanical Ventilator Mechanical Ventilator 02/10/20 11:46 66 20 40 02/10/20 09:50 72 125/60 02/10/20 08:16 137/60 02/10/20 08:16 67 137/60 02/10/20 08:00 40 02/10/20 08:00 Mechanical Ventilator Mechanical Ventilator 02/10/20 08:00 68 02/10/20 07:59 98.6 67 17 137/60 (85) 95 02/10/20 07:28 67 16 40 02/10/20 05:41 98.9 02/10/20 05:06 145/62 02/10/20 04:00 98.2 68 17 143/61 (88) 99 02/10/20 04:00 40 02/10/20 04:00 Mechanical Ventilator Mechanical Ventilator 02/10/20 03:20 74 02/10/20 02:44 72 22 40 ROS: unchanged for 01/17/20 HEENT: Mechanically Ventilated, Thick Trach secretions RHYTHM: Afib LUNGS: bilateral rhonchi, trach site clean CARDIAC: normal S1 and S2, irregularly irregular, other - no rub ABDOMEN: normal bowel sounds, non tender, soft, G-Tube intact, other - left groin- no bleeding at old cath site EXTREMITIES: normal inspection, trace edema Laboratory Tests Test 02/10/20 05:17 02/10/20 12:28 02/10/20 17:22 POC Whole Blood Glucose Pending 84 MG/DL (74-106) 90 MG/DL (74-106) Assessment/Plan Assessment/Plan Chronic respiratory failure with trach Severe sepsis PAFib with rapid ventric response. Ischemic cardiomyopathy - hx CABG and s/p NSTEMI in Dec 2019. Conduction system disease of the heart Hx of permanent pacemaker explant Acute on chronic systolic and diastolic CHF Pleural effusion Anemia Hypertension/HHD with labile BP. ESRD Avoid beta flori therapy based on risk of bradycardia. Anti-failure and anti-anginal regimen with titration Vent support Abx per ID Continuous cardiac monitoring Anti-HTN regimen being titrated as needed. Transfuse PRBC as needed Stable for subacute facility from Cardiovascular standpoint Deni Willams MD Feb 11, 2020 02:38
--- NOTE | 2020-02-11 03:59 | NUR ---
NURSE NOTES: Pt is comfortably lying in bed. Oral secretions suctioned. No pain noted. Not in respiratory distress 02 sat-95%. Continue to monitor pt.
[2020-02-11 04:00] VITALS: BP 139/67
[2020-02-11] MEDS: Metoclopramide 10mg/2ml Inj IVP SCH ×4 (05:06→23:40)
[2020-02-11] MEDS: HydrALAZINE 25mg tab GT SCH ×4 (05:06→23:42)
--- NOTE | 2020-02-11 05:32 | NUR ---
NURSE NOTES: Reposition pt per protocol. No signs of respiratory distress. o2 sat- 95%. Oral secretions suctioned.
[2020-02-11 05:48] LABS: BASOPHILS % (AUTO) 0.9 % (0.0-2.0); EOSINOPHILS % (AUTO) 1.9 % (0.0-3.0); HEMATOCRIT 25.7 % (37.0-47.0); HEMOGLOBIN 8.5 G/DL (12.0-16.0); LYMPHOCYTES % (AUTO) 14.9 % (20.0-45.0); MEAN CORPUSCULAR VOLUME 85 FL (80-99); NEUTROPHILS % (AUTO) 78.4 % (45.0-75.0); PLATELET COUNT 352 K/UL (150-450); RED BLOOD COUNT 3.04 M/UL (4.20-5.40); RED CELL DISTRIBUTION WIDTH 15.5 % (11.6-14.8); WHITE BLOOD COUNT 11.8 K/UL (4.8-10.8)
[2020-02-11 06:15] LABS: ALBUMIN 1.8 G/DL (3.4-5.0); ALBUMIN/GLOBULIN RATIO 0.4 (1.0-2.7); BILIRUBIN,TOTAL 0.4 MG/DL (0.2-1.0); CALCIUM 8.8 MG/DL (8.5-10.1); CREATININE 3.4 MG/DL (0.55-1.30); PHOSPHORUS 2.7 MG/DL (2.5-4.9)
[2020-02-11] MEDS: HYDROcodone/Acetamin 5/325 tab ORAL PRN ×2 (06:15→20:08)
--- NOTE | 2020-02-11 06:22 | Hematology/Onc Progress Note ---
Assessment/Plan Assessment/Plan IM note Covering for Dr. Dong Assessment and Recs # Leukocytosis, now with pna v other process --> Cxr: : Large left pleural effusion, Bilateral interstitial and airspace infiltrates versus edema --> wbc 16-->26->30-->10->8 --> ABX zosyn-->angelo/vanc-->angelo/tobra->off --> ID recs are noted --> smear has been reviewed # Anemia of chronic disease due to underlying chronic medical issues, multifactorial --> Anemia workup has been reviewed, cw acd --> No evidence of hemolysis is noted, peripheral smear has been reviewed. --> Hgb goal >7. Transfuse prn. --> Epogen required, to continue --> Medications have been reviewed --> low threshold for gi evaluation in case has occult + --> hgb 7.1-->7.8-->>>5.9-->7.3-->7-->7.2-->7.9-->8.6-->8.2-->8.5-->7->8.5 --> 1 unit prbc10/17, 2 units 12/3. 02/06 --> gi eval as needed # Coagulopathy with inr 1.5 --> consider vit k/ffp as needed preprocedure --> labs noted # JAVIER initially >2 --> on ivfs --> per renal # Elevated d-dimer --> venous duplex ordered-->reviewed, is neg --> in prior neg # Dysphagia s/p peg --> as per gi # Thoracic aortic dissection --> s/p repair early 2017 # Chronic Resp failure -> s/p trach/vent # Psychiatric history on ativan/haldol # [place] resident # Dvt ppx --> scds The timing of this note does not necessarily reflect the time of the patient was seen. Greatly appreciate consultation. Subjective HEENT: Denies: no symptoms, eye pain, blurred vision, tearing, double vision, ear pain, ear discharge, nose pain, nose congestion, throat pain, throat swelling, mouth pain, mouth swelling, other Cardiovascular: Denies: no symptoms, chest pain, edema, irregular heart rate, lightheadedness, palpitations, syncope, other Respiratory: Denies: no symptoms, cough, shortness of breath, SOB with excertion, SOB at rest, sputum, wheezing, other Gastrointestinal/Abdominal: Denies: no symptoms, abdomen distended, abdominal pain, black stools, tarry stools, blood in stool, constipated, diarrhea, difficulty swallowing, nausea, poor appetite, poor fluid intake, rectal bleeding, vomiting, other Genitourinary: Denies: no symptoms, burning, discharge, frequency, flank pain, hematuria, incontinence, pain, urgency, other Endocrine: Denies: no symptoms, excessive sweating, flushing, intolerance to cold, intolerance to heat, increased hunger, increased thirst, increased urine, unexplained weight gain, unexplained weight loss, other Allergies: Coded Allergies: No Known Allergies (Unverified , 10/10/17) Subjective 01/16 left femoral [address] in place, on vent, icu, hgb better 01/18 labs are noted, wbc 30, hgb 7, may require prbc today 01/27 is off amio, on epoogen, hgb reviewed, 7.2, transfuse if unstable 01/28 pain meds given, some foaming around mouth, no bleeding 01/29 hd was done yesterday, no bleedig, cbc pending, asa given 01/30 labs are noted, no bleeding, labs reviewed, pending meds 02/01 labs are noted, no bleeding, meds reviewed, no f/c, trach/vent 02/02 labs noted, no night sweats, t/v, labs ordered for am 02/03 labs reviewed, meds noted, no bleeding, hgb 7.9 02/04 meds noted, no bleeding, labs reviewed, hgb 8 02/05 labs are pending, some secretions are noted, no bleeding 02/[address] still with bleed dw Rn, will place seal/further pressure 02/08 labs reviewed, grimacing, meds noted, vitals noted, seen by cards 02/09 on vent, meds reviewed, hd as per renal, labs pending 02/10 vent, comfortable, no bleeding or chills, hgb stable Objective Objective Current Medications Medications (Trade) Dose Ordered Sig/Penny Route PRN Reason Start Time Stop Time Status Last Admin Dose Admin Acetaminophen (Tylenol) 500 mg Q6H PRN GT FEVER 01/21/20 20:45 02/20/20 20:44 02/10/20 05:11 Acetaminophen (Tylenol) 650 mg Q6H PRN GT For Pain 02/09/20 17:15 03/10/20 17:14 02/09/20 17:39 Acetaminophen/ Hydrocodone Bitart (Kent 5/325) 1 tab Q6H PRN ORAL For Pain 02/07/20 11:00 02/14/20 10:59 02/11/20 06:15 Amantadine HCl (Symmetrel) 100 mg TWICE A DAY GT 01/31/20 18:00 03/01/20 17:59 02/10/20 17:04 Amlodipine Besylate (Norvasc) 5 mg BID GT 01/22/20 18:00 02/20/20 15:44 02/10/20 17:04 Aspirin (ASA) 81 mg DAILY GT 01/20/20 09:00 03/05/20 08:59 02/10/20 08:16 Atorvastatin Calcium (Lipitor) 10 mg BEDTIME GT 01/17/20 21:00 04/16/20 20:59 02/10/20 20:28 Chlorhexidine Gluconate (Ling-Hex 2%) 1 applic DAILY@1999 TOPIC 01/17/20 20:00 04/16/20 19:59 02/10/20 20:27 Dextrose (Dextrose 50%) 25 ml Q30M PRN IV Hypoglycemia 01/15/20 22:15 04/14/20 22:14 Dextrose (Dextrose 50%) 50 ml Q30M PRN IV Hypoglycemia 01/15/20 22:15 04/14/20 22:14 01/22/20 17:54 Docusate Sodium (Colace) 200 mg BIDPRN PRN GT Constipation 01/31/20 07:45 03/01/20 07:44 02/04/20 11:21 Epoetin Gelacio (Epoetin Gelacio(ESRD on dialysis)) 10,000 unit MON-MON-MON SUBQ 01/27/20 21:00 04/26/20 20:59 02/10/20 20:37 Hydralazine HCl (Apresoline) 25 mg Q6HR GT 01/26/20 18:15 04/25/20 18:14 02/11/20 05:06 Isosorbide Dinitrate (Isordil) 20 mg TID GT 01/25/20 09:00 02/19/20 08:59 02/10/20 17:04 Lactulose (Cephulac) 20 gm THREE TIMES A DAY GT 02/04/20 13:00 03/05/20 12:59 02/10/20 17:03 Lansoprazole (Prevacid) 30 mg BID GT 01/19/20 18:00 02/18/20 17:59 02/10/20 17:04 Metoclopramide HCl (Reglan) 5 mg Q6HR IVP 02/05/20 07:00 03/06/20 06:59 02/11/20 05:06 Metoprolol Tartrate (Lopressor) 25 mg Q12HR ORAL 01/27/20 21:00 04/22/20 20:59 02/10/20 20:31 Polyethylene Glycol (Miralax) 17 gm BEDTIME GT 02/04/20 21:00 03/05/20 20:59 02/10/20 20:27 Sodium Hypochlorite (Dakin's Quarter Strength) 1 applic DAILY TOPIC 01/30/20 09:00 02/29/20 08:59 02/10/20 08:16 Zinc Oxide (Zinc Oxide) 1 applic TIDPRN PRN TOPIC diogenes GT 01/16/20 13:15 04/15/20 13:14 01/16/20 14:55 Last 24 Hour Vital Signs Date Time Temp Pulse Resp B/P (MAP) Pulse Ox O2 Delivery O2 Flow Rate FiO2 02/11/20 05:06 137/67 02/11/20 04:00 40 02/11/20 04:00 Mechanical Ventilator Mechanical Ventilator 02/11/20 04:00 98.2 66 20 139/67 (91) 100 02/11/20 04:00 61 02/11/20 03:30 64 25 40 02/11/20 00:00 61 02/11/20 00:00 40 02/11/20 00:00 98.1 65 20 141/58 (85) 100 02/11/20 00:00 Mechanical Ventilator Mechanical Ventilator 02/10/20 23:33 137/65 02/10/20 23:30 69 17 40 02/10/20 20:31 67 126/67 02/10/20 20:00 40 02/10/20 20:00 Mechanical Ventilator Mechanical Ventilator 02/10/20 20:00 66 02/10/20 20:00 98.6 70 16 127/69 (88) 100 02/10/20 19:20 66 15 40 02/10/20 17:59 135/64 02/10/20 17:04 131/60 02/10/20 17:04 66 131/60 02/10/20 16:00 40 02/10/20 16:00 98.2 72 17 131/60 (83) 100 02/10/20 16:00 Mechanical Ventilator Mechanical Ventilator 02/10/20 16:00 66 02/10/20 15:46 65 14 40 02/10/20 13:05 141/71 02/10/20 12:13 143/63 02/10/20 12:00 68 02/10/20 12:00 98.6 66 17 143/63 (89) 100 02/10/20 12:00 40 02/10/20 12:00 Mechanical Ventilator Mechanical Ventilator 02/10/20 11:46 66 20 40 02/10/20 09:50 72 125/60 02/10/20 08:16 137/60 02/10/20 08:16 67 137/60 02/10/20 08:00 40 02/10/20 08:00 Mechanical Ventilator Mechanical Ventilator 02/10/20 08:00 68 02/10/20 07:59 98.6 67 17 137/60 (85) 95 02/10/20 07:28 67 16 40 02/10/20 05:41 98.9 02/10/20 05:06 145/62 02/10/20 04:00 98.2 68 17 143/61 (88) 99 02/10/20 04:00 40 02/10/20 04:00 Mechanical Ventilator Mechanical Ventilator 02/10/20 03:20 74 02/10/20 02:44 72 22 40 02/10/20 00:00 98.0 75 20 147/63 (91) 98 02/10/20 00:00 40 02/10/20 00:00 Mechanical Ventilator Mechanical Ventilator 02/09/20 23:55 72 02/09/20 23:03 132/67 02/09/20 22:49 77 14 40 02/09/20 20:34 59 128/62 02/09/20 20:00 40 12/27/20 20:00 98.1 59 18 128/62 (84) 98 02/09/20 20:00 Mechanical Ventilator Mechanical Ventilator 02/09/20 19:21 68 02/09/20 18:50 73 18 40 02/09/20 17:40 151/63 02/09/20 17:39 151/63 02/09/20 17:39 68 151/63 02/09/20 16:00 98.2 70 18 144/81 (102) 97 02/09/20 16:00 40 02/09/20 16:00 Mechanical Ventilator Mechanical Ventilator 02/09/20 15:38 71 02/09/20 15:07 72 20 40 02/09/20 12:11 149/107 02/09/20 12:10 149/107 02/09/20 12:00 98.4 63 19 154/65 (94) 98 02/09/20 12:00 40 02/09/20 12:00 Mechanical Ventilator Mechanical Ventilator 02/09/20 11:31 66 02/09/20 11:12 72 20 40 02/09/20 08:20 145/64 02/09/20 08:19 68 145/64 02/09/20 08:18 68 145/64 02/09/20 08:00 40 02/09/20 08:00 Mechanical Ventilator Mechanical Ventilator 02/09/20 08:00 98.6 66 14 138/76 (96) 98 02/09/20 07:56 66 02/09/20 07:21 66 14 40 Intake and Output 02/10/20 02/11/20 19:00 07:00 Intake Total 685 ml 535 ml Output Total 250 ml 250 ml Balance 435 ml 285 ml Free Water 300 ml 150 ml Tube Feeding 385 ml 385 ml Output Urine Total 250 ml 250 ml # Bowel Movements 4 2 Labs Test 02/08/20 12:27 02/08/20 16:55 02/09/20 00:34 02/09/20 06:01 POC Whole Blood Glucose 101 MG/DL (74-106) 96 MG/DL (74-106) 103 MG/DL (74-106) Test 02/09/20 08:15 02/09/20 12:01 02/09/20 17:43 02/09/20 22:54 White Blood Count 7.8 K/UL (4.8-10.8) Red Blood Count 3.18 M/UL (4.20-5.40) Hemoglobin 8.8 G/DL (12.0-16.0) Hematocrit 25.3 % (37.0-47.0) Mean Corpuscular Volume 80 FL (80-99) Mean Corpuscular Hemoglobin 27.8 PG (27.0-31.0) Mean Corpuscular Hemoglobin Concent 34.9 G/DL (32.0-36.0) Red Cell Distribution Width 16.8 % (11.6-14.8) Platelet Count 388 K/UL (150-450) Mean Platelet Volume 5.7 FL (6.5-10.1) Neutrophils (%) (Auto) 74.2 % (45.0-75.0) Lymphocytes (%) (Auto) 16.9 % (20.0-45.0) Monocytes (%) (Auto) 6.8 % (1.0-10.0) Eosinophils (%) (Auto) 1.5 % (0.0-3.0) Basophils (%) (Auto) 0.7 % (0.0-2.0) Sodium Level 137 MMOL/L (136-145) Potassium Level 3.5 MMOL/L (3.5-5.1) Chloride Level 99 MMOL/L (98-107) Carbon Dioxide Level 31 MMOL/L (21-32) Anion Gap 7 mmol/L (5-15) Blood Urea Nitrogen 44 mg/dL (7-18) Creatinine 2.6 MG/DL (0.55-1.30) Estimat Glomerular Filtration Rate 19.7 mL/min (>60) Glucose Level 93 MG/DL (74-106) Uric Acid 3.1 MG/DL (2.6-7.2) Calcium Level 8.5 MG/DL (8.5-10.1) Phosphorus Level 2.9 MG/DL (2.5-4.9) Total Bilirubin 0.4 MG/DL (0.2-1.0) Aspartate Amino Transf (AST/SGOT) 28 U/L (15-37) Alanine Aminotransferase (ALT/SGPT) 9 U/L (12-78) Alkaline Phosphatase 193 U/L (46-116) C-Reactive Protein, Quantitative 17.1 mg/dL (0.00-0.90) Pro-B-Type Natriuretic Peptide > 56213 pg/mL (0-125) Total Protein 7.0 G/DL (6.4-8.2) Albumin 1.9 G/DL (3.4-5.0) Globulin 5.1 g/dL Albumin/Globulin Ratio 0.4 (1.0-2.7) POC Whole Blood Glucose 94 MG/DL (74-106) 82 MG/DL (74-106) 87 MG/DL (74-106) Test 02/10/20 05:17 02/10/20 12:28 02/10/20 17:22 02/11/20 03:25 POC Whole Blood Glucose 84 MG/DL (74-106) 90 MG/DL (74-106) White Blood Count 11.8 K/UL (4.8-10.8) Red Blood Count 3.04 M/UL (4.20-5.40) Hemoglobin 8.5 G/DL (12.0-16.0) Hematocrit 25.7 % (37.0-47.0) Mean Corpuscular Volume 85 FL (80-99) Mean Corpuscular Hemoglobin 27.9 PG (27.0-31.0) Mean Corpuscular Hemoglobin Concent 33.0 G/DL (32.0-36.0) Red Cell Distribution Width 15.5 % (11.6-14.8) Platelet Count 352 K/UL (150-450) Mean Platelet Volume 5.3 FL (6.5-10.1) Neutrophils (%) (Auto) 78.4 % (45.0-75.0) Lymphocytes (%) (Auto) 14.9 % (20.0-45.0) Monocytes (%) (Auto) 4.0 % (1.0-10.0) Eosinophils (%) (Auto) 1.9 % (0.0-3.0) Basophils (%) (Auto) 0.9 % (0.0-2.0) Sodium Level 132 MMOL/L (136-145) Potassium Level 3.0 MMOL/L (3.5-5.1) Chloride Level 94 MMOL/L (98-107) Carbon Dioxide Level 29 MMOL/L (21-32) Anion Gap 9 mmol/L (5-15) Blood Urea Nitrogen 59 mg/dL (7-18) Creatinine 3.4 MG/DL (0.55-1.30) Estimat Glomerular Filtration Rate 14.5 mL/min (>60) Glucose Level 95 MG/DL (74-106) Calcium Level 8.8 MG/DL (8.5-10.1) Phosphorus Level 2.7 MG/DL (2.5-4.9) Magnesium Level 2.8 MG/DL (1.8-2.4) Total Bilirubin 0.4 MG/DL (0.2-1.0) Aspartate Amino Transf (AST/SGOT) 22 U/L (15-37) Alanine Aminotransferase (ALT/SGPT) 7 U/L (12-78) Alkaline Phosphatase 172 U/L (46-116) Total Protein 6.9 G/DL (6.4-8.2) Albumin 1.8 G/DL (3.4-5.0) Globulin 5.1 g/dL Albumin/Globulin Ratio 0.4 (1.0-2.7) Height (Feet): 5 Height (Inches): 6.00 Weight (Pounds): 150 Objective Physical Exam: Vitals: reviewed General: NAD HEENT: nc, at Neck: supple ++trach/vent Chest: clear breath sounds bilaterally Cardiovascular: RRR, no s3, s4 Abdomen: soft, nontender, nd +gtube Extremities: no cce, normal range of motion Neuro: alert Eavn Muhammad MD Feb 11, 2020 06:22
--- NOTE | 2020-02-11 06:57 | NUR ---
NURSE HAND-OFF REPORT: Important Events on Shift: Discharge planning waiting for placement, WBC -11.8- Endorsed to AM, excoriation in Gtube site- dressing provided. Patient Status: Stable Diet: GTF Pending Orders: None Pending Results/Labs: None Pending notification: None Latest Vital Signs: Temperature 98.2 , Pulse 66 , B/P 137 /67 , Respiratory Rate 20 , O2 SAT 100 , Mechanical Ventilator, O2 Flow Rate . Vital Sign Comment: [WNL] EKG Rhythm: Sinus Rhythm Rhythm change?: N Notified?: N -Dr. Екатерина HATFIELD Response: Order Received& Read Back Latest [place] Fall Score: 60 Fall Risk: High Risk Safety Measures: Call light Within Reach, Bed Alarm Zone 1, Side Rails Side Rails x2, Bed position Low and Locked. Fall Precautions: Yellow Socks Report given to [Mckinley RN].
--- NOTE | 2020-02-11 07:17 | NUR ---
NURSE NOTES: Received report from ERASMO Greene. Patient is resting in bed, in stable condition. No s/sx of SOB, breathing is even and unlabored, on vent with vent settings as ordered. Observed no presence of pain or discomfort at this time. Bed is in lowest position, brakes engaged. Call light is kept within easy reach. Will continue to monitor patient.
[2020-02-11 07:56] VITALS: BP 135/62
[2020-02-11] MEDS: Lactulose 20gm/30ml UDC GT SCH ×3 (08:11→17:49)
[2020-02-11] MEDS: Amantadine 100mg cap GT SCH ×2 (08:12→17:16)
[2020-02-11] MEDS: Dakin's 0.125% Soln (Quarter Strength) 16oz TOPIC SCH (08:12)
[2020-02-11] MEDS: Aspirin Baby 81mg GT SCH (08:12)
--- NOTE | 2020-02-11 08:58 | Infectious Diseases Prog Note ---
Assessment/Plan 49yo F with: AF Sepsis Leukocytosis Hypoxia on vent Pneumonia c/b L pleural effusion (recurrent, prior determined to be transudative) - s/p thora 01/21, 1050cc removed Volume overload, BNP >35,0000, likely 2/2 progressive CKD --> ESRD ?Pancreatitis, Lipase >2000 Acute anemia to 5s CONS bacteremia, ?contaminant Aflutter w/ RVR 01/13 BCx 2/2 +S. epi COVID PCR neg Flu neg CXR: Large left pleural effusion. Bilateral interstitial and airspace infiltrates versus edema MRSA nares neg 01/16 BCx NTD 01/17 BCx /2 +Staph auricularis (skin colonizer) 01/18 Resp cx +MDR CRE PsA (S-gent, I-colistin, R-polyB) 01/18 C.dif neg 01/18 CXR: Similar opacification of the left hemithorax likely representing combination of pleural effusion with atelectasis versus pneumonia/edema. Decreased but persistent hazy opacity throughout the right lung may represent edema versus infectious/inflammatory process. 01/20 BCx NTD 01/21 L thora 1050 cc removed, cx NTD 01/25 Wound cx from Gtube site +CRE Kleb pna (arnett-R) and MDR PsA (colonizers) 01/26 CT A/P: Limited exam, due to severe diffuse anasarca. Ascites. Bilateral pleural effusions. Basilar pulmonary atelectatic changes and consolidation. Gastrostomy. Atrophic left kidney with a nephroureteral stents again demonstrated. Possible retrococcygeal decubitus changes. Correlate with clinical findings, consider MRI if there is concern for sacral osteomyelitis. Right hip intertrochanteric fracture, also previously demonstrated. Left femoral dialysis catheter. Nonspecific right lobe liver lesion is unchanged, not well- demonstrated. ctasia bordering on aneurysmal dilatation and possible chronic dissection of the distal thoracic aorta, also previously described. JAVIER on CKD On previous admission Sep-Oct 2019 required HD for short period Going to start HD this admission again R/o COVID / COVID PCR neg 12/29 neg at [facility] per report H/o UTI 10/15 u/a wbc 30-40, nit neg, leuk +3; ucx ESBL P. mirablis, ESBL M. morganii //20 u/a wbc tnct, nit neg, leuk +3; ucx >100k MDR P. stuarti (S Ceftriaxone, Meropenem) 10/07 u/a wbc tnct, nit neg, leuk ; ucx >100k VRE 10/15/19 u/a wbc tnct; ucx >100k ESBL P. stuarti (S ertapenem, aztreonam) H/o transudative pleural effusion 11/28 Sp Thora (w: 169, PMN: 2%, L: 49% , LDH: 57, prot 2.5); cx Neg H/o PNA 10/15/19 Resp cx ESBL P. mirabilis, MDR P.a. (S only to Gent) 09/22 Resp cx + MDR PsA (S-gent; I-colistin; R-levofloxacin, Zosyn, angelo) 09/16/19 Sp cx ESBL P. mirablis H/o PPM site (pocket) infection and pocket abscess 2ry to S. epi-11/2018, sp >6weeks IV vancomycin 11/27 SP ABBIE: no evidence for vegetation on any of the valves 11/26/18 SP PPM removal: OR findings:The fibrous capsule enclosing the generator was then opened and there was a [id number] amount of yellowish fluid drainage. The generator was then removed.Atrial and ventricular leads were detached. The necrotic tissue of the pocket was then removed and the pocket was flushed with an antibiotic solution. Capsule, wound tissue and lead tip cx: Neg 2d echo: no vegetation seen US chest: 4.6 x 3.4 x 0.9 cm hypoechoic/anechoic area overlying left chest pacemaker power pack. This could represent either a discrete fluid collection or a focal area of very edematous tissue. Infected fluid pocket also possible. 11/18 Bcx 3/4 S. epi; 11/20 Bcx neg; 11/24 Bcx Neg; 11/27 Bcx Neg CAD s/p CABG GERD/gastritis Afib HTN Dysphagia sp GT Aortic dissection s/p repair 2017 S/p PPM Parkinson's Disease Schizophrenia Anxiety COPD Chronic resp failure s/p trach Hx of tracheal bleeding ID resident ([facility]) VRE and MRSA colonized Plan: Cont to monitor off abx Trend WBC 01/31 SP angelo/inh tobra #10 for pna 12/11 SP vanco IV #10 given CONS/GPC bacteremia 01/16 SP Zosyn #2 12/ SP dex 10mg in ED 12/10 SP IV Gentamycin #10 12/07 SP Meropenem #10 12/01 SP IV Vancomycin #5 11/28 Sp Cefepime #2 and IV Gentamycin x1 Monitor CBC/CMP Monitor temp curve, hemodynamics Monitor resp status D/w RN Thank you for this consult. [facility] will continue to follow. Subjective Allergies: Coded Allergies: No Known Allergies (Unverified , 10/10/17) AF NAD on vent 40% PEEP 5 Off abx WBC up to 11 Objective Last 24 Hour Vital Signs Date Time Temp Pulse Resp B/P (MAP) Pulse Ox O2 Delivery O2 Flow Rate FiO2 02/11/20 08:50 63 119/56 02/11/20 08:12 63 135/62 02/11/20 08:11 135/62 02/11/20 07:56 98.1 63 20 135/62 (86) 97 02/11/20 07:12 63 18 40 02/11/20 05:06 137/67 02/11/20 04:00 40 02/11/20 04:00 Mechanical Ventilator Mechanical Ventilator 02/11/20 04:00 98.2 66 20 139/67 (91) 100 02/11/20 04:00 61 02/11/20 03:30 64 25 40 02/11/20 00:00 61 02/11/20 00:00 40 02/11/20 00:00 98.1 65 20 141/58 (85) 100 02/11/20 00:00 Mechanical Ventilator Mechanical Ventilator 02/10/20 23:33 137/65 02/10/20 23:30 69 17 40 02/10/20 20:31 67 126/67 02/10/20 20:00 40 02/10/20 20:00 Mechanical Ventilator Mechanical Ventilator 02/10/20 20:00 66 02/10/20 20:00 98.6 70 16 127/69 (88) 100 02/10/20 19:20 66 15 40 02/10/20 17:59 135/64 02/10/20 17:04 131/60 02/10/20 17:04 66 131/60 02/10/20 16:00 40 02/10/20 16:00 98.2 72 17 131/60 (83) 100 02/10/20 16:00 Mechanical Ventilator Mechanical Ventilator 02/10/20 16:00 66 02/10/20 15:46 65 14 40 02/10/20 13:05 141/71 02/10/20 12:13 143/63 02/10/20 12:00 68 02/10/20 12:00 98.6 66 17 143/63 (89) 100 02/10/20 12:00 40 02/10/20 12:00 Mechanical Ventilator Mechanical Ventilator 02/10/20 11:46 66 20 40 02/10/20 09:50 72 125/60 Height (Feet): 5 Height (Inches): 6.00 Weight (Pounds): 150 Gen: NAD HEENT: NCAT, +trach CV: RRR Pulm: CTAB on vent Abd: Non-distended, +PEG with skin intact wo erythema or discharge, but brownish discharge on dressing Ext: No c/c/e Skin: No visible rashes Neuro: Awake, minimally interactive Lines: L fem HD cath Laboratory Tests Test 02/10/20 12:28 02/10/20 17:22 02/11/20 03:25 POC Whole Blood Glucose 84 MG/DL (74-106) 90 MG/DL (74-106) White Blood Count 11.8 K/UL (4.8-10.8) H Red Blood Count 3.04 M/UL (4.20-5.40) L Hemoglobin 8.5 G/DL (12.0-16.0) L Hematocrit 25.7 % (37.0-47.0) L Mean Corpuscular Volume 85 FL (80-99) Mean Corpuscular Hemoglobin 27.9 PG (27.0-31.0) Mean Corpuscular Hemoglobin Concent 33.0 G/DL (32.0-36.0) Red Cell Distribution Width 15.5 % (11.6-14.8) H Platelet Count 352 K/UL (150-450) Mean Platelet Volume 5.3 FL (6.5-10.1) L Neutrophils (%) (Auto) 78.4 % (45.0-75.0) H Lymphocytes (%) (Auto) 14.9 % (20.0-45.0) L Monocytes (%) (Auto) 4.0 % (1.0-10.0) Eosinophils (%) (Auto) 1.9 % (0.0-3.0) Basophils (%) (Auto) 0.9 % (0.0-2.0) Sodium Level 132 MMOL/L (136-145) L Potassium Level 3.0 MMOL/L (3.5-5.1) L Chloride Level 94 MMOL/L (98-107) L Carbon Dioxide Level 29 MMOL/L (21-32) Anion Gap 9 mmol/L (5-15) Blood Urea Nitrogen 59 mg/dL (7-18) H Creatinine 3.4 MG/DL (0.55-1.30) H Estimat Glomerular Filtration Rate 14.5 mL/min (>60) Glucose Level 95 MG/DL (74-106) Calcium Level 8.8 MG/DL (8.5-10.1) Phosphorus Level 2.7 MG/DL (2.5-4.9) Magnesium Level 2.8 MG/DL (1.8-2.4) H Total Bilirubin 0.4 MG/DL (0.2-1.0) Aspartate Amino Transf (AST/SGOT) 22 U/L (15-37) Alanine Aminotransferase (ALT/SGPT) 7 U/L (12-78) L Alkaline Phosphatase 172 U/L (46-116) H Total Protein 6.9 G/DL (6.4-8.2) Albumin 1.8 G/DL (3.4-5.0) L Globulin 5.1 g/dL Albumin/Globulin Ratio 0.4 (1.0-2.7) L Current Medications Medications (Trade) Dose Ordered Sig/Penny Route PRN Reason Start Time Stop Time Status Last Admin Dose Admin Acetaminophen (Tylenol) 500 mg Q6H PRN GT FEVER 01/21/20 20:45 02/20/20 20:44 02/10/20 05:11 Acetaminophen (Tylenol) 650 mg Q6H PRN GT For Pain 02/09/20 17:15 03/10/20 17:14 02/09/20 17:39 Acetaminophen/ Hydrocodone Bitart ([place] 5/325) 1 tab Q6H PRN ORAL For Pain 02/07/20 11:00 02/14/20 10:59 02/11/20 06:15 Amantadine HCl (Symmetrel) 100 mg TWICE A DAY GT 12/18/20 18:00 03/01/20 17:59 02/11/20 08:12 Amlodipine Besylate (Norvasc) 5 mg BID GT 01/22/20 18:00 02/20/20 15:44 02/11/20 08:12 Aspirin (ASA) 81 mg DAILY GT 01/20/20 09:00 03/05/20 08:59 02/11/20 08:12 Atorvastatin Calcium (Lipitor) 10 mg BEDTIME GT 01/17/20 21:00 04/16/20 20:59 02/10/20 20:28 Chlorhexidine Gluconate (Ling-Hex 2%) 1 applic DAILY@199901/17/20 20:00 04/16/20 19:59 02/10/20 20:27 Dextrose (Dextrose 50%) 25 ml Q30M PRN IV Hypoglycemia 01/15/20 22:15 04/14/20 22:14 Dextrose (Dextrose 50%) 50 ml Q30M PRN IV Hypoglycemia 01/15/20 22:15 04/14/20 22:14 01/22/20 17:54 Docusate Sodium (Colace) 200 mg BIDPRN PRN GT Constipation 01/31/20 07:45 03/01/20 07:44 02/04/20 11:21 Epoetin Gelacio (Epoetin Gelacio(ESRD on dialysis)) 10,000 unit MON-MON-MON SUBQ 01/27/20 21:00 04/26/20 20:59 02/10/20 20:37 Hydralazine HCl (Apresoline) 25 mg Q6HR GT 01/26/20 18:15 04/25/20 18:14 02/11/20 05:06 Isosorbide Dinitrate (Isordil) 20 mg TID GT 01/25/20 09:00 02/19/20 08:59 02/11/20 08:11 Lactulose (Cephulac) 20 gm THREE TIMES A DAY GT 02/04/20 13:00 03/05/20 12:59 02/11/20 08:11 Lansoprazole (Prevacid) 30 mg BID GT 01/19/20 18:00 02/18/20 17:59 02/11/20 08:12 Metoclopramide HCl (Reglan) 5 mg Q6HR IVP 02/05/20 07:00 03/06/20 06:59 02/11/20 05:06 Metoprolol Tartrate (Lopressor) 25 mg Q12HR ORAL 01/27/20 21:00 04/22/20 20:59 02/11/20 08:50 Polyethylene Glycol (Miralax) 17 gm BEDTIME GT 02/04/20 21:00 03/05/20 20:59 02/10/20 20:27 Sodium Hypochlorite (Dakin's Quarter Strength) 1 applic DAILY TOPIC 01/30/20 09:00 02/29/20 08:59 02/11/20 08:12 Zinc Oxide (Zinc Oxide) 1 applic TIDPRN PRN TOPIC diogenes GT 01/16/20 13:15 04/15/20 13:14 01/16/20 14:55 Ro Pack M.D. Feb 11, 2020 08:58
[2020-02-11] MEDS ORDERED: Tubing IV Blood Pump IV ONE (09:06)
[2020-02-11] MEDS ORDERED: NS 275ml ONE (09:06)
--- NOTE | 2020-02-11 09:16 | General Progress Note ---
Subjective ROS Limited/Unobtainable: No Allergies: Coded Allergies: No Known Allergies (Unverified , 10/10/17) Objective Last 24 Hour Vital Signs Date Time Temp Pulse Resp B/P (MAP) Pulse Ox O2 Delivery O2 Flow Rate FiO2 02/11/20 08:50 63 119/56 02/11/20 08:12 63 135/62 02/11/20 08:11 135/62 02/11/20 08:00 Mechanical Ventilator Mechanical Ventilator 02/11/20 08:00 40 02/11/20 07:56 98.1 63 20 135/62 (86) 97 02/11/20 07:12 63 18 40 02/11/20 05:06 137/67 02/11/20 04:00 40 02/11/20 04:00 Mechanical Ventilator Mechanical Ventilator 02/11/20 04:00 98.2 66 20 139/67 (91) 100 02/11/20 04:00 61 02/11/20 03:30 64 25 40 02/11/20 00:00 61 02/11/20 00:00 40 02/11/20 00:00 98.1 65 20 141/58 (85) 100 02/11/20 00:00 Mechanical Ventilator Mechanical Ventilator 02/10/20 23:33 137/65 02/10/20 23:30 69 17 40 02/10/20 20:31 67 126/67 02/10/20 20:00 40 02/10/20 20:00 Mechanical Ventilator Mechanical Ventilator 02/10/20 20:00 66 02/10/20 20:00 98.6 70 16 127/69 (88) 100 02/10/20 19:20 66 15 40 02/10/20 17:59 135/64 02/10/20 17:04 131/60 02/10/20 17:04 66 131/60 02/10/20 16:00 40 02/10/20 16:00 98.2 72 17 131/60 (83) 100 02/10/20 16:00 Mechanical Ventilator Mechanical Ventilator 02/10/20 16:00 66 02/10/20 15:46 65 14 40 02/10/20 13:05 141/71 02/10/20 12:13 143/63 02/10/20 12:00 68 02/10/20 12:00 98.6 66 17 143/63 (89) 100 02/10/20 12:00 40 02/10/20 12:00 Mechanical Ventilator Mechanical Ventilator 02/10/20 11:46 66 20 40 02/10/20 09:50 72 125/60 Intake and Output 02/10/20 02/11/20 19:00 07:00 Intake Total 685 ml 535 ml Output Total 250 ml 250 ml Balance 435 ml 285 ml Free Water 300 ml 150 ml Tube Feeding 385 ml 385 ml Output Urine Total 250 ml 250 ml # Bowel Movements 4 2 Laboratory Tests 02/10/20 12:28: POC Whole Blood Glucose 84 02/10/20 17:22: POC Whole Blood Glucose 90 02/11/20 03:25: White Blood Count 11.8H, Red Blood Count 3.04L, Hemoglobin 8.5L, Hematocrit 25.7L, Mean Corpuscular Volume 85, Mean Corpuscular Hemoglobin 27.9, Mean Corpuscular Hemoglobin Concent 33.0, Red Cell Distribution Width 15.5H, Platelet Count 352, Mean Platelet Volume 5.3L, Neutrophils (%) (Auto) 78.4H, Lymphocytes (%) (Auto) 14.9L, Monocytes (%) (Auto) 4.0, Eosinophils (%) (Auto) 1.9, Basophils (%) (Auto) 0.9, Sodium Level 132L, Potassium Level 3.0L, Chloride Level 94L, Carbon Dioxide Level 29, Anion Gap 9, Blood Urea Nitrogen 59H, Creatinine 3.4H, Estimat Glomerular Filtration Rate 14.5, Glucose Level 95, Calcium Level 8.8, Phosphorus Level 2.7, Magnesium Level 2.8H, Total Bilirubin 0.4, Aspartate Amino Transf (AST/SGOT) 22, Alanine Aminotransferase (ALT/SGPT) 7L, Alkaline Phosphatase 172H, Total Protein 6.9, Albumin 1.8L, Globulin 5.1, Albumin/Globulin Ratio 0.4L Height (Feet): 5 Height (Inches): 6.00 Weight (Pounds): 150 General Appearance: no apparent distress EENT: normal ENT inspection Neck: supple Cardiovascular: normal rate Respiratory/Chest: decreased breath sounds Abdomen: normal bowel sounds, non tender, soft Extremities: non-tender Assessment/Plan Problem List: (1) Hx of CABG ICD Codes: Z95.1 - Presence of aortocoronary bypass graft SNOMED: 110428155, 737319183 (2) History of tracheostomy ICD Codes: Z98.890 - Other specified postprocedural states SNOMED: 163016715, 454554287 (3) PEG (percutaneous endoscopic gastrostomy) status ICD Codes: Z93.1 - Gastrostomy status SNOMED: 912862911, 536682231 (4) S/P aortic dissection repair ICD Codes: Z98.890 - Other specified postprocedural states SNOMED: 604529550, 283911944 (5) Renal failure ICD Codes: N19 - Unspecified kidney failure SNOMED: 49891800, 673268448 (6) Anemia ICD Codes: D64.9 - Anemia, unspecified SNOMED: 761633740 Assessment/Plan: stable H&H repeat stool ob GTF some GT leak reglan topical Zinc oxide HD per nephrology persistent elevated lipase\ ct reviewed s/p one unit prbc cbc in Inder Mccauley MD Feb 11, 2020 09:16
--- NOTE | 2020-02-11 11:06 | Nephrology Progress Note ---
Assessment/Plan Problem List: (1) ARF (acute renal failure) (2) Pacemaker (3) Sepsis (4) Hyponatremia Assessment (1) JAVIER (acute kidney injury) (2) Renal failure (ARF), acute on chronic (3) Feeding by G-tube (4) Tracheostomy in place (5) Electrolyte imbalance, hyponatremia (6) Anemia, severe (7) Respiratory failure, acute and chronic (8) Elevated lipase, pancreatitis (9) Elevated troponin I (10) Sepsis Plan February 10: Labs reviewed. Potassium replaced. Serum sodium 132. Check labs tomorrow. Dialysis as needed. February 09: No labs drawn today. Last dialysis February 07. Will check lab tomorrow. Hemodialysis as needed. February 08: Labs reviewed. Dialyzed yesterday. Stable from renal standpoint of view. Continue to monitor electrolytes and order dialysis as needed. February 07: Labs reviewed. Due for dialysis today. Continue per consultants. February 06: Labs reviewed. Last dialysis February 03. Will postpone today's dialysis to tomorrow. Continue per current treatment plan. February 05: Labs reviewed. Last dialysis February 03. Will order dialysis tomorrow. Waiting for tunneled catheter placement. February 04: Labs reviewed. Dialyzed yesterday. With a plan for insertion of a tunneled dialysis catheter and discontinue left groin dialysis catheter afterwards. Check labs in a.m. Discussed with Dr. Dong. February 03: Labs reviewed. Due for dialysis today. Continue per consultants. February 02: Labs reviewed. Will order dialysis tomorrow. Continue per consultants. February 01: Labs reviewed. Creatinine gradually rising. Will dialyze as needed. Continue to monitor renal parameters. January 31: Last dialysis January 29. Labs reviewed. No need for dialysis today. Continue per current management. Hemodialysis as needed. Will check renal parameters and chemistries tomorrow. January 30: Patient was dialyzed yesterday. No labs drawn today. Continue to monitor renal parameters and dialyze as needed. Continue per consultants and PMD. January 29: Patient due for dialysis today. Today's can panel reviewed. Continue to monitor renal parameters and dialysis as needed. January 28: Patient last dialyzed January 26. No labs drawn today. Will order dialysis tomorrow. Check chemistry panel tomorrow. Continue per consultants. January 27: Patient was dialyzed yesterday . Labs were reviewed. Electrolytes within normal limit. Blood pressure stable. January 26: When visited the patient earlier today the patient was on dialysis. Tolerating well. Labs reviewed. Blood pressure stable. January 25: Dialysis for tomorrow. Labs reviewed. Hemoglobin remains low. Will adjust blood pressure medication. Hydralazine added to the regimen January 24: Last dialyzed January 22. Labs reviewed. Status quo. Will dialyze as needed. Low hemoglobin noted. Transfusion per PMD decision. Epogen started. \January 23: Dialyzed yesterday. Today's labs reviewed. Continue to monitor renal parameters and arrange for dialysis as needed. Continue per PMD. January 22: Seen earlier during dialysis. Labs reviewed. Medication list rev iewed. Continue current management. January 21: Labs reviewed. Medication list reviewed. Next hemodialysis tomorrow. Blood pressure medication adjusted. January 20: Dialyzed yesterday. Labs reviewed. Continue per current management. Dialysis as needed. Add Norvasc to blood pressure regimen January 19: Due for dialysis today. Labs reviewed. Continue her current management. Continue to monitor renal parameters and electrolytes. January 18: Dialyzed yesterday. Labs reviewed. Renal parameters electrolytes much improved. Dialysis again tomorrow. Continue rest. January 17: Dialyzed this morning. Labs reviewed. Renal parameters and electrolyte abnormalities improved. Discussed with RN. Continue per consultants. January 16: Dialyzed yesterday. Labs improved. Next dialysis tomorrow. Continue per consultants. January 15: Patient to have dialysis catheter. Emergency dialysis for correction of uremia and electrolyte imbalances Antibiotics Transfusion Continue to monitor renal parameters Per orders Discussed with RN Subjective ROS Limited/Unobtainable: Yes Objective Objective Last 24 Hour Vital Signs Date Time Temp Pulse Resp B/P (MAP) Pulse Ox O2 Delivery O2 Flow Rate FiO2 02/11/20 08:50 63 119/56 02/11/20 08:12 63 135/62 02/11/20 08:11 135/62 02/11/20 08:00 Mechanical Ventilator Mechanical Ventilator 02/11/20 08:00 61 02/11/20 08:00 40 02/11/20 07:56 98.1 63 20 135/62 (86) 97 02/11/20 07:12 63 18 40 02/11/20 05:06 137/67 02/11/20 04:00 40 02/11/20 04:00 Mechanical Ventilator Mechanical Ventilator 02/11/20 04:00 98.2 66 20 139/67 (91) 100 02/11/20 04:00 61 02/11/20 03:30 64 25 40 02/11/20 00:00 61 02/11/20 00:00 40 02/11/20 00:00 98.1 65 20 141/58 (85) 100 02/11/20 00:00 Mechanical Ventilator Mechanical Ventilator 02/10/20 23:33 137/65 02/10/20 23:30 69 17 40 02/10/20 20:31 67 126/67 02/10/20 20:00 40 02/10/20 20:00 Mechanical Ventilator Mechanical Ventilator 02/10/20 20:00 66 02/10/20 20:00 98.6 70 16 127/69 (88) 100 02/10/20 19:20 66 15 40 02/10/20 17:59 135/64 02/10/20 17:04 131/60 02/10/20 17:04 66 131/60 02/10/20 16:00 40 02/10/20 16:00 98.2 72 17 131/60 (83) 100 02/10/20 16:00 Mechanical Ventilator Mechanical Ventilator 02/10/20 16:00 66 02/10/20 15:46 65 14 40 02/10/20 13:05 141/71 02/10/20 12:13 143/63 02/10/20 12:00 68 02/10/20 12:00 98.6 66 17 143/63 (89) 100 02/10/20 12:00 40 02/10/20 12:00 Mechanical Ventilator Mechanical Ventilator 02/10/20 11:46 66 20 40 Intake and Output 02/10/20 02/11/20 19:00 07:00 Intake Total 685 ml 535 ml Output Total 250 ml 250 ml Balance 435 ml 285 ml Free Water 300 ml 150 ml Tube Feeding 385 ml 385 ml Output Urine Total 250 ml 250 ml # Bowel Movements 4 2 Current Medications Medications (Trade) Dose Ordered Sig/Penny Route PRN Reason Start Time Stop Time Status Last Admin Dose Admin Acetaminophen (Tylenol) 500 mg Q6H PRN GT FEVER 01/21/20 20:45 02/20/20 20:44 02/10/20 05:11 Acetaminophen (Tylenol) 650 mg Q6H PRN GT For Pain 02/09/20 17:15 03/10/20 17:14 02/09/20 17:39 Acetaminophen/ Hydrocodone Bitart ([place] 5/325) 1 tab Q6H PRN ORAL For Pain 02/07/20 11:00 02/14/20 10:59 02/11/20 06:15 Amantadine HCl (Symmetrel) 100 mg TWICE A DAY GT 01/31/20 18:00 03/01/20 17:59 02/11/20 08:12 Amlodipine Besylate (Norvasc) 5 mg BID GT 01/22/20 18:00 02/20/20 15:44 02/11/20 08:12 Aspirin (ASA) 81 mg DAILY GT 01/20/20 09:00 03/05/20 08:59 02/11/20 08:12 Atorvastatin Calcium (Lipitor) 10 mg BEDTIME GT 01/17/20 21:00 04/16/20 20:59 02/10/20 20:28 Chlorhexidine Gluconate (Ling-Hex 2%) 1 applic DAILY@199901/17/20 20:00 04/16/20 19:59 02/10/20 20:27 Dextrose (Dextrose 50%) 25 ml Q30M PRN IV Hypoglycemia 01/15/20 22:15 04/14/20 22:14 Dextrose (Dextrose 50%) 50 ml Q30M PRN IV Hypoglycemia 01/15/20 22:15 04/14/20 22:14 01/22/20 17:54 Docusate Sodium (Colace) 200 mg BIDPRN PRN GT Constipation 01/31/20 07:45 03/01/20 07:44 02/04/20 11:21 Epoetin Gelacio (Epoetin Gelacio(ESRD on dialysis)) 10,000 unit MON-MON-MON SUBQ 01/27/20 21:00 04/26/20 20:59 02/10/20 20:37 Hydralazine HCl (Apresoline) 25 mg Q6HR GT 01/26/20 18:15 04/25/20 18:14 02/11/20 11:42 Isosorbide Dinitrate (Isordil) 20 mg TID GT 01/25/20 09:00 02/19/20 08:59 02/11/20 13:13 Lactulose (Cephulac) 20 gm THREE TIMES A DAY GT 02/04/20 13:00 03/05/20 12:59 02/11/20 08:11 Lansoprazole (Prevacid) 30 mg BID GT 01/19/20 18:00 02/18/20 17:59 02/11/20 08:12 Metoclopramide HCl (Reglan) 5 mg Q6HR IVP 02/05/20 07:00 03/06/20 06:59 02/11/20 11:43 Metoprolol Tartrate (Lopressor) 25 mg Q12HR ORAL 01/27/20 21:00 04/22/20 20:59 02/11/20 08:50 Polyethylene Glycol (Miralax) 17 gm BEDTIME GT 02/04/20 21:00 03/05/20 20:59 02/10/20 20:27 Sodium Hypochlorite (Dakin's Quarter Strength) 1 applic DAILY TOPIC 01/30/20 09:00 02/29/20 08:59 02/11/20 08:12 Zinc Oxide (Zinc Oxide) 1 applic TIDPRN PRN TOPIC diogenes GT 01/16/20 13:15 04/15/20 13:14 01/16/20 14:55 Laboratory Tests 02/10/20 12:28: POC Whole Blood Glucose 84 02/10/20 17:22: POC Whole Blood Glucose 90 02/11/20 03:25: White Blood Count 11.8H, Red Blood Count 3.04L, Hemoglobin 8.5L, Hematocrit 25.7L, Mean Corpuscular Volume 85, Mean Corpuscular Hemoglobin 27.9, Mean Corpuscular Hemoglobin Concent 33.0, Red Cell Distribution Width 15.5H, Platelet Count 352, Mean Platelet Volume 5.3L, Neutrophils (%) (Auto) 78.4H, Lymphocytes (%) (Auto) 14.9L, Monocytes (%) (Auto) 4.0, Eosinophils (%) (Auto) 1.9, Basophils (%) (Auto) 0.9, Sodium Level 132L, Potassium Level 3.0L, Chloride Level 94L, Carbon Dioxide Level 29, Anion Gap 9, Blood Urea Nitrogen 59H, Creatinine 3.4H, Estimat Glomerular Filtration Rate 14.5, Glucose Level 95, Calcium Level 8.8, Phosphorus Level 2.7, Magnesium Level 2.8H, Total Bilirubin 0.4, Aspartate Amino Transf (AST/SGOT) 22, Alanine Aminotransferase (ALT/SGPT) 7L, Alkaline Phosphatase 172H, Total Protein 6.9, Albumin 1.8L, Globulin 5.1, Albumin/Globulin Ratio 0.4L Height (Feet): 5 Height (Inches): 6.00 Weight (Pounds): 150 General Appearance: no apparent distress EENT: other - Trach to vent Cardiovascular: normal rate Respiratory/Chest: decreased breath sounds Abdomen: distended Objective No change Johnny Houston MD Feb 11, 2020 11:06
--- NOTE | 2020-02-11 11:20 | NUR ---
NURSE NOTES: Dr. Pack at nurse station. Aware of WBC [address] Pack continue to monitor off antibiotics. Patient afebrile. Will continue to monitor patient.
[2020-02-11 12:00] VITALS: BP 135/65
--- NOTE | 2020-02-11 12:56 | Pulmonology Progress Note ---
Subjective ROS Limited/Unobtainable: No Interval Events: None new Constitutional: Reports: no symptoms HEENT: Repors: no symptoms Respiratory: Reports: no symptoms Cardiovascular: Reports: no symptoms Gastrointestinal/Abdominal: Reports: no symptoms Allergies: Coded Allergies: No Known Allergies (Unverified , 10/10/17) All Systems: reviewed and negative except above Objective Last 24 Hour Vital Signs Date Time Temp Pulse Resp B/P (MAP) Pulse Ox O2 Delivery O2 Flow Rate FiO2 02/11/20 11:42 124/63 02/11/20 08:50 63 119/56 02/11/20 08:12 63 135/62 02/11/20 08:11 135/62 02/11/20 08:00 Mechanical Ventilator Mechanical Ventilator 02/11/20 08:00 61 02/11/20 08:00 40 02/11/20 07:56 98.1 63 20 135/62 (86) 97 02/11/20 07:12 63 18 40 02/11/20 05:06 137/67 02/11/20 04:00 40 02/11/20 04:00 Mechanical Ventilator Mechanical Ventilator 02/11/20 04:00 98.2 66 20 139/67 (91) 100 02/11/20 04:00 61 02/11/20 03:30 64 25 40 02/11/20 00:00 61 02/11/20 00:00 40 02/11/20 00:00 98.1 65 20 141/58 (85) 100 02/11/20 00:00 Mechanical Ventilator Mechanical Ventilator 02/10/20 23:33 137/65 02/10/20 23:30 69 17 40 02/10/20 20:31 67 126/67 02/10/20 20:00 40 02/10/20 20:00 Mechanical Ventilator Mechanical Ventilator 02/10/20 20:00 66 02/10/20 20:00 98.6 70 16 127/69 (88) 100 02/10/20 19:20 66 15 40 02/10/20 17:59 135/64 02/10/20 17:04 131/60 02/10/20 17:04 66 131/60 02/10/20 16:00 40 02/10/20 16:00 98.2 72 17 131/60 (83) 100 02/10/20 16:00 Mechanical Ventilator Mechanical Ventilator 02/10/20 16:00 66 02/10/20 15:46 65 14 40 02/10/20 13:05 141/71 Intake and Output 02/10/20 02/11/20 19:00 07:00 Intake Total 685 ml 535 ml Output Total 250 ml 250 ml Balance 435 ml 285 ml Free Water 300 ml 150 ml Tube Feeding 385 ml 385 ml Output Urine Total 250 ml 250 ml # Bowel Movements 4 2 General Appearance: no acute distress HEENT: normocephalic, other - trach Respiratory: chest wall non-tender, other - coarse lung sounds Cardiovascular: normal rate, regular rhythm Abdomen: soft, non tender Genitourinary: other - Norman Extremities: other - trace edema Laboratory Tests 02/10/20 17:22: POC Whole Blood Glucose 90 02/11/20 03:25: White Blood Count 11.8H, Red Blood Count 3.04L, Hemoglobin 8.5L, Hematocrit 25.7L, Mean Corpuscular Volume 85, Mean Corpuscular Hemoglobin 27.9, Mean Corpuscular Hemoglobin Concent 33.0, Red Cell Distribution Width 15.5H, Platelet Count 352, Mean Platelet Volume 5.3L, Neutrophils (%) (Auto) 78.4H, Lymphocytes (%) (Auto) 14.9L, Monocytes (%) (Auto) 4.0, Eosinophils (%) (Auto) 1.9, Basophils (%) (Auto) 0.9, Sodium Level 132L, Potassium Level 3.0L, Chloride Level 94L, Carbon Dioxide Level 29, Anion Gap 9, Blood Urea Nitrogen 59H, Creatinine 3.4H, Estimat Glomerular Filtration Rate 14.5, Glucose Level 95, Calcium Level 8.8, Phosphorus Level 2.7, Magnesium Level 2.8H, Total Bilirubin 0.4, Aspartate Amino Transf (AST/SGOT) 22, Alanine Aminotransferase (ALT/SGPT) 7L, Alkaline Phosphatase 172H, Total Protein 6.9, Albumin 1.8L, Globulin 5.1, Albumin/Globulin Ratio 0.4L Current Medications Medications (Trade) Dose Ordered Sig/Penny Route PRN Reason Start Time Stop Time Status Last Admin Dose Admin Acetaminophen (Tylenol) 500 mg Q6H PRN GT FEVER 01/21/20 20:45 02/20/20 20:44 02/10/20 05:11 Acetaminophen (Tylenol) 650 mg Q6H PRN GT For Pain 02/09/20 17:15 03/10/20 17:14 02/09/20 17:39 Acetaminophen/ Hydrocodone Bitart (Volga 5/325) 1 tab Q6H PRN ORAL For Pain 02/07/20 11:00 02/14/20 10:59 02/11/20 06:15 Amantadine HCl (Symmetrel) 100 mg TWICE A DAY GT 01/31/20 18:00 03/01/20 17:59 02/11/20 08:12 Amlodipine Besylate (Norvasc) 5 mg BID GT 01/22/20 18:00 02/20/20 15:44 02/11/20 08:12 Aspirin (ASA) 81 mg DAILY GT 01/20/20 09:00 03/05/20 08:59 02/11/20 08:12 Atorvastatin Calcium (Lipitor) 10 mg BEDTIME GT 01/17/20 21:00 04/16/20 20:59 02/10/20 20:28 Chlorhexidine Gluconate (Ling-Hex 2%) 1 applic DAILY@199901/17/20 20:00 04/16/20 19:59 02/10/20 20:27 Dextrose (Dextrose 50%) 25 ml Q30M PRN IV Hypoglycemia 01/15/20 22:15 04/14/20 22:14 Dextrose (Dextrose 50%) 50 ml Q30M PRN IV Hypoglycemia 01/15/20 22:15 04/14/20 22:14 01/22/20 17:54 Docusate Sodium (Colace) 200 mg BIDPRN PRN GT Constipation 01/31/20 07:45 03/01/20 07:44 02/04/20 11:21 Epoetin Gelacio (Epoetin Gelacio(ESRD on dialysis)) 10,000 unit MON-MON-MON SUBQ 01/27/20 21:00 04/26/20 20:59 02/10/20 20:37 Hydralazine HCl (Apresoline) 25 mg Q6HR GT 01/26/20 18:15 04/25/20 18:14 02/11/20 11:42 Isosorbide Dinitrate (Isordil) 20 mg TID GT 01/25/20 09:00 02/19/20 08:59 02/11/20 08:11 Lactulose (Cephulac) 20 gm THREE TIMES A DAY GT 02/04/20 13:00 03/05/20 12:59 02/11/20 08:11 Lansoprazole (Prevacid) 30 mg BID GT 01/19/20 18:00 02/18/20 17:59 02/11/20 08:12 Metoclopramide HCl (Reglan) 5 mg Q6HR IVP 02/05/20 07:00 03/06/20 06:59 02/11/20 11:43 Metoprolol Tartrate (Lopressor) 25 mg Q12HR ORAL 01/27/20 21:00 04/22/20 20:59 02/11/20 08:50 Polyethylene Glycol (Miralax) 17 gm BEDTIME GT 02/04/20 21:00 03/05/20 20:59 02/10/20 20:27 Potassium Chloride 100 ml @ 100 mls/hr Q1H IVPB 02/11/20 11:15 02/11/20 13:14 02/11/20 11:42 Sodium Hypochlorite (Dakin's Quarter Strength) 1 applic DAILY TOPIC 01/30/20 09:00 02/29/20 08:59 02/11/20 08:12 Zinc Oxide (Zinc Oxide) 1 applic TIDPRN PRN TOPIC diogenes GT 01/16/20 13:15 04/15/20 13:14 01/16/20 14:55 Assessment/Plan Assessment/Plan Assessment/Plan 1. Large left effusion. - S/p thoracentesis; CXR better - pleural fluid pathology report: negative for malignant cell 2. Chronic respiratory failure. - Continue trach care - Cont AC mode - Currently saturating at 97% 3. Sepsis; improving 4. Anemia - improving - s/p transfusion - s/p Epogen s/p HD on broad-spectrum antibiotics. Pulmonary hygiene. DVT and GI prophylaxes. Dc planning in place FiO2 increased previously to 60%; now decreased to 40%; will wean further as tolerated Elijah Stephen,Elijah Harrison MD Feb 11, 2020 12:56
--- NOTE | 2020-02-11 14:12 | NUR ---
[employer] Tech SI: Respiratory Failure, Trach/Vent Dependant, JAVIER T 98.1, HR 63, RR 20, BP 1219/56 AC 14 TV 500 FiO2 40% O2 Sat 97: WBC 11.8 BUN 59, Creatinine 3.4 ALT 7, ALK Phos 172, Albumin 1.8, NA+ 132, K+ 3.04 IS : Reglan IV Lactulose GT Placement Pending Step Down Status
--- NOTE | 2020-02-11 14:31 | Surgery Progress Note ---
Surgery Progress Note Subjective Procedure Performed Left femoral temporary hemodialysis catheter insertion Additional Comments no bleeding no hematoma line out okay wbc elevated Objective Last 24 Hour Vital Signs Date Time Temp Pulse Resp B/P (MAP) Pulse Ox O2 Delivery O2 Flow Rate FiO2 02/11/20 13:13 129/53 02/11/20 12:00 Mechanical Ventilator Mechanical Ventilator 02/11/20 12:00 97.3 67 20 135/65 (88) 97 02/11/20 12:00 40 02/11/20 11:42 124/63 02/11/20 08:50 63 119/56 02/11/20 08:12 63 135/62 02/11/20 08:11 135/62 02/11/20 08:00 Mechanical Ventilator Mechanical Ventilator 02/11/20 08:00 61 02/11/20 08:00 40 02/11/20 07:56 98.1 63 20 135/62 (86) 97 02/11/20 07:12 63 18 40 02/11/20 05:06 137/67 02/11/20 04:00 40 02/11/20 04:00 Mechanical Ventilator Mechanical Ventilator 02/11/20 04:00 98.2 66 20 139/67 (91) 100 02/11/20 04:00 61 02/11/20 03:30 64 25 40 02/11/20 00:00 61 02/11/20 00:00 40 02/11/20 00:00 98.1 65 20 141/58 (85) 100 02/11/20 00:00 Mechanical Ventilator Mechanical Ventilator 02/10/20 23:33 137/65 02/10/20 23:30 69 17 40 02/10/20 20:31 67 126/67 02/10/20 20:00 40 02/10/20 20:00 Mechanical Ventilator Mechanical Ventilator 02/10/20 20:00 66 02/10/20 20:00 98.6 70 16 127/69 (88) 100 02/10/20 19:20 66 15 40 02/10/20 17:59 135/64 02/10/20 17:04 131/60 02/10/20 17:04 66 131/60 02/10/20 16:00 40 02/10/20 16:00 98.2 72 17 131/60 (83) 100 02/10/20 16:00 Mechanical Ventilator Mechanical Ventilator 02/10/20 16:00 66 02/10/20 15:46 65 14 40 I&O Intake and Output 02/10/20 02/11/20 19:00 07:00 Intake Total 685 ml 535 ml Output Total 250 ml 250 ml Balance 435 ml 285 ml Free Water 300 ml 150 ml Tube Feeding 385 ml 385 ml Output Urine Total 250 ml 250 ml # Bowel Movements 4 2 Dressing: saturated Cardiovascular: RSR Respiratory: decreased breath sounds Abdomen: soft, non-tender, present bowel sounds, other, non-distended Extremities: no edema, no tenderness, no cyanosis, other Laboratory Tests Test 02/10/20 17:22 02/11/20 03:25 POC Whole Blood Glucose 90 MG/DL (74-106) White Blood Count 11.8 K/UL (4.8-10.8) H Red Blood Count 3.04 M/UL (4.20-5.40) L Hemoglobin 8.5 G/DL (12.0-16.0) L Hematocrit 25.7 % (37.0-47.0) L Mean Corpuscular Volume 85 FL (80-99) Mean Corpuscular Hemoglobin 27.9 PG (27.0-31.0) Mean Corpuscular Hemoglobin Concent 33.0 G/DL (32.0-36.0) Red Cell Distribution Width 15.5 % (11.6-14.8) H Platelet Count 352 K/UL (150-450) Mean Platelet Volume 5.3 FL (6.5-10.1) L Neutrophils (%) (Auto) 78.4 % (45.0-75.0) H Lymphocytes (%) (Auto) 14.9 % (20.0-45.0) L Monocytes (%) (Auto) 4.0 % (1.0-10.0) Eosinophils (%) (Auto) 1.9 % (0.0-3.0) Basophils (%) (Auto) 0.9 % (0.0-2.0) Sodium Level 132 MMOL/L (136-145) L Potassium Level 3.0 MMOL/L (3.5-5.1) L Chloride Level 94 MMOL/L (98-107) L Carbon Dioxide Level 29 MMOL/L (21-32) Anion Gap 9 mmol/L (5-15) Blood Urea Nitrogen 59 mg/dL (7-18) H Creatinine 3.4 MG/DL (0.55-1.30) H Estimat Glomerular Filtration Rate 14.5 mL/min (>60) Glucose Level 95 MG/DL (74-106) Calcium Level 8.8 MG/DL (8.5-10.1) Phosphorus Level 2.7 MG/DL (2.5-4.9) Magnesium Level 2.8 MG/DL (1.8-2.4) H Total Bilirubin 0.4 MG/DL (0.2-1.0) Aspartate Amino Transf (AST/SGOT) 22 U/L (15-37) Alanine Aminotransferase (ALT/SGPT) 7 U/L (12-78) L Alkaline Phosphatase 172 U/L (46-116) H Total Protein 6.9 G/DL (6.4-8.2) Albumin 1.8 G/DL (3.4-5.0) L Globulin 5.1 g/dL Albumin/Globulin Ratio 0.4 (1.0-2.7) L Plan Problems: (1) Dehydration (2) Acidosis (3) Depression (4) Pleural effusion (5) Respiratory failure (6) Schizophrenia (7) Hypoxia (8) UTI (urinary tract infection) (9) Pneumonia (10) NSTEMI (non-ST elevated myocardial infarction) (11) Tracheostomy in place (12) Feeding by G-tube (13) JAVIER (acute kidney injury) (14) Acute encephalopathy (15) Sacral decubitus ulcer, stage IV (16) Chronic respiratory failure (17) Ascites (18) Bacteremia (19) Hypernatremia (20) Proteinuria (21) Electrolyte imbalance (22) ACS (acute coronary syndrome) (23) Aortic dissection, thoracic (24) Respiratory failure, acute and chronic (25) JAVIER (acute kidney injury) (26) Abrasion of lip, initial encounter (27) COPD with exacerbation (28) Elevated alkaline phosphatase level (29) Renal failure (ARF), acute on chronic (30) HCAP (healthcare-associated pneumonia) (31) GT CLOGGED (32) Elevated lipase (33) Pancreatitis (34) Elevated troponin (35) Hypokalemia (36) Hyponatremia (37) Anemia (38) Renal failure (39) ARF (acute renal failure) (40) Pacemaker (41) Sepsis Assessment & Plan: leukocytosis anemia on HD renal insufficiency wounds addressed pancreatitis cont diet as tolerating trend labs lf'ts okay bleeding from permacath site suture used and hemostasis obtained plan removal of fem line if stable tomorrow pt presented on admission with Tracheostomy ,GT and Multiple Pressure Injuries. Skin assessment of skin under tracheal collar without evidence of skin breakdo wn. Peristomal GT site excoriated.Moderate amt of dark red sanguineous exudate. Full Thickness Sacral Pressure Injury with undermined borders (L)9 cm x (W)12cm x (D)1.8cm,Undermining clockwise8-9 by 2.2cm @1o'clock,undermining clockwise 1-4 by 1.9 @ 9'oclock Scattered necrotic tissue within wound bed. Borders are loose and necrotic with marginal erythema to outer perimeter of wound. NO elevation in skin temp noted periwound. Wound is malodorous. Small amt Brown exudate noted. Resolving Pressure Injury L Ischium(L)1.5cm x (W)1.5cm. Base of wound is 80% pink epithelial with an area that is moist and pink. NO odor or exudate noted. Bilat foot-drop noted. L Heel is boggy with non-blanchable erythema(L)4cm x (W)4cm. R heel is boggy with non-Blanchable erythema(L)5cm x (W)6cm. Tx.Plan: Cleanse sacral wound with Dakin's 0.125% annie. Loosely pack with Dakin's moistened Kerlix(Attention to undermined borders). Apply Moisture Barrier Paste periwound. Cover with Optifoam drsg. Change Daily and PRN. Apply Cavilon Skin Barrier to R and L Hels. Cover each heel with Optifoam drsg. Change every 7 days and prn. Reposition at least every 2hours or as tolerated. Off-load heels with Pillow. APM/JENNIFER MAttress overlay DAILY ESTIMATED NEEDS: Needs based on Critical care, wound, renal dysfunction 56 kg abw 28-33 kcals/kg [id number] total kcals W/ HD (1.5-2.0) g protein/kg 84-112 g total protein Fluid per MD NUTRITION DIAGNOSIS: * Swallowing difficulty R/T dysphagia, respiratory status as evidenced by vent dep via trach, GT Dep. * Increase kcal and pro needs r/t wound healing, renal dysfunction as evidenced by admitted w/ stage 4 sacral wound, admitted w/ JAVIER, now on HD. CURRENT TF: Nepro @ 40ml/hr x 24 hrs ENTERAL NUTRITION RECOMMENDATIONS: Nepro @ 40ml/hr x 24 hrs + Prosource 1pkt QD to provide 960ml, 1728kcal, 78g+11g prot, 698ml free water * Maintain current TF @ goal as tolerated * Add Prosource 1pkt QD to better meet increased protein needs (additional 11g prot) * Water flush per MD/ HOB over 30 degrees ADDITIONAL RECOMMENDATIONS: * Per SNF in NOV 2019: HT=63"/ Rec daily calibrated bedscale wt * Monitor for continuity of HD, next HD 02/03 * Rec phos binders- consistently elevated phos level * Wound care: add Nephrovite x 1, ZnSO4 220mg QD x 10 days Reynaldo BID via PEG (mix w/ 2-4 oz water); vit C per nephro * Monitor TF tolerance: elev lipase, slowly trending down * Add bowel regimen: no BM x 8 days, last BM on 01/25. (42) Hyponatremia Lane Saavedra Feb 11, 2020 14:31
--- NOTE | 2020-02-11 15:51 | NUR ---
*-*DISCHARGE PLANNING*-* PATIENT HAS BEEN REFERRED TO: [facility] P: [phone] S/W PUR[facility], CANNOT ACCEPT PATIENT, DUE TO AGE, AND DIALYSIS.
[2020-02-11 16:00] VITALS: BP 129/56
--- NOTE | 2020-02-11 17:06 | NUR ---
NURSE NOTES: WOUND CARE FOLLOW-UP NOTE:Full Thickness Sacral Pressure Injury(L)10.7cm x (W)11.5cm x (D)1.7cm, undermining clockwise 7-11 by 2.3cm @9 o'clock.Beefy granulation at base of wound . Mild odor noted . along borders of wound is indurated with darker skin tone. No elevation in skin temp periwound. L Ischial Pressure Injury has resolved. Hyperpigmentation noted.R and L Heels are blanchable. No new skin concerns noted.Wound Care Orders continued as ordered. All wound prevention protocols continued as care-planned.
--- NOTE | 2020-02-11 19:00 | NUR ---
NURSE NOTES: Received report from Mckinley Amezcua RN. pt is seen in semi- crisostomo's position. Pt is alert x 2-3. Pt can nod when ask, pt is alert to name. Pt open eyes spontaneously. Trach to vent with settings as ordered. O2 sat- 95%, suctioned tracheal secretions. No signs of respiratory distress noted. No pain noted. No anxiety/agitation noted. With raymond noted, intact and patent,discharge planning waiting for placement, no bleeding on femoral d'cd yesterday. Bed in lowest position, call light within reach. Continue to plan of care. Education provided about pt trach and oral care.
[2020-02-11 20:00] VITALS: BP 138/66
[2020-02-11] MEDS: Dyna-Hex 2% Top Sol 2oz TOPIC SCH (20:08)
[2020-02-11] MEDS: Miralax 17gm pkt GT SCH (20:09)
[2020-02-12] VITALS: BP 142/65
[2020-02-12] MEDS: Acetaminophen 650mg/20.3ml GT PRN (00:42)
--- NOTE | 2020-02-12 01:42 | NUR ---
NURSE NOTES: Sponge bath given, oral secretions suctioned. No residual noted on Gtube, with slight discharge, Dr. Mccauley previously aware but will refer in AM again. Dressing change in sacral cleansed with Dakin Solution. Bed on lowest position, call light within reach. Continue to plan of care.
[2020-02-12 04:00] VITALS: BP 129/62
--- NOTE | 2020-02-12 04:01 | Cardiology Progress Note ---
Subjective DATE OF SERVICE: Feb 12, 2020 Continues with HD schedule per renal Now in sinus rhythm. Occasional PVC's - non-sustained BP range stable Full vent support via trach s/p left thorocentesis 01/22/20 Objective Last 24 Hour Vital Signs Date Time Temp Pulse Resp B/P (MAP) Pulse Ox O2 Delivery O2 Flow Rate FiO2 02/12/20 00:53 Mechanical Ventilator Mechanical Ventilator 02/12/20 00:00 40 02/12/20 00:00 98.0 64 18 142/65 (90) 97 02/12/20 00:00 69 02/11/20 23:42 142/65 02/11/20 23:30 72 22 40 02/11/20 20:07 76 138/66 02/11/20 20:00 75 02/11/20 20:00 Mechanical Ventilator Mechanical Ventilator 02/11/20 20:00 98.8 76 23 138/66 (90) 97 02/11/20 20:00 40 02/11/20 19:20 70 26 40 02/11/20 17:49 132/61 02/11/20 17:16 129/56 02/11/20 17:16 67 129/56 02/11/20 16:00 67 02/11/20 16:00 98.6 66 20 129/56 (80) 99 02/11/20 16:00 40 02/11/20 16:00 Mechanical Ventilator Mechanical Ventilator 02/11/20 15:19 67 22 40 02/11/20 13:13 129/53 02/11/20 12:00 64 02/11/20 12:00 Mechanical Ventilator Mechanical Ventilator 02/11/20 12:00 97.3 67 20 135/65 (88) 97 02/11/20 12:00 40 02/11/20 11:42 124/63 02/11/20 11:14 64 19 40 02/11/20 08:50 63 119/56 02/11/20 08:12 63 135/62 02/11/20 08:11 135/62 02/11/20 08:00 Mechanical Ventilator Mechanical Ventilator 02/11/20 08:00 61 02/11/20 08:00 40 02/11/20 07:56 98.1 63 20 135/62 (86) 97 02/11/20 07:12 63 18 40 02/11/20 05:06 137/67 ROS: unchanged for 01/17/20 HEENT: Mechanically Ventilated, Thick Trach secretions RHYTHM: Afib LUNGS: bilateral rhonchi, trach site clean CARDIAC: normal S1 and S2, irregularly irregular, other - no rub ABDOMEN: normal bowel sounds, non tender, soft, G-Tube intact, other - left groin- no bleeding at old cath site EXTREMITIES: normal inspection, trace edema Laboratory Tests Test 02/11/20 14:53 02/11/20 17:37 POC Whole Blood Glucose 113 MG/DL (74-106) H 106 MG/DL (74-106) Assessment/Plan Assessment/Plan Chronic respiratory failure with trach Severe sepsis PAFib now in sinus rhythm Ischemic cardiomyopathy - hx CABG and s/p NSTEMI in Dec 2019. Conduction system disease of the heart Hx of permanent pacemaker explant Acute on chronic systolic and diastolic CHF Pleural effusion Anemia Hypertension/HHD with labile BP. ESRD Avoid beta flori therapy based on historic risk of bradycardia. Anti-failure and anti-anginal regimen with titration Vent support Abx per ID Continuous cardiac monitoring Anti-HTN regimen being titrated as needed. Transfuse PRBC as needed Stable for subacute facility from Cardiovascular standpoint Deni Willams MD Feb 12, 2020 04:01
--- NOTE | 2020-02-12 04:02 | Cardiology Progress Note ---
Subjective Continues with HD schedule per renal Now in sinus rhythm. Occasional PVC's - non-sustained BP range stable Full vent support via trach s/p left thorocentesis 01/22/20 Objective Last 24 Hour Vital Signs Date Time Temp Pulse Resp B/P (MAP) Pulse Ox O2 Delivery O2 Flow Rate FiO2 02/12/20 00:53 Mechanical Ventilator Mechanical Ventilator 02/12/20 00:00 40 02/12/20 00:00 98.0 64 18 142/65 (90) 97 02/12/20 00:00 69 02/11/20 23:42 142/65 02/11/20 23:30 72 22 40 02/11/20 20:07 76 138/66 02/11/20 20:00 75 02/11/20 20:00 Mechanical Ventilator Mechanical Ventilator 02/11/20 20:00 98.8 76 23 138/66 (90) 97 02/11/20 20:00 40 02/11/20 19:20 70 26 40 02/11/20 17:49 132/61 02/11/20 17:16 129/56 02/11/20 17:16 67 129/56 02/11/20 16:00 67 02/11/20 16:00 98.6 66 20 129/56 (80) 99 02/11/20 16:00 40 02/11/20 16:00 Mechanical Ventilator Mechanical Ventilator 02/11/20 15:19 67 22 40 02/11/20 13:13 129/53 02/11/20 12:00 64 02/11/20 12:00 Mechanical Ventilator Mechanical Ventilator 02/11/20 12:00 97.3 67 20 135/65 (88) 97 02/11/20 12:00 40 02/11/20 11:42 124/63 02/11/20 11:14 64 19 40 02/11/20 08:50 63 119/56 02/11/20 08:12 63 135/62 02/11/20 08:11 135/62 02/11/20 08:00 Mechanical Ventilator Mechanical Ventilator 02/11/20 08:00 61 02/11/20 08:00 40 02/11/20 07:56 98.1 63 20 135/62 (86) 97 02/11/20 07:12 63 18 40 02/11/20 05:06 137/67 ROS: unchanged for 01/17/20 HEENT: Mechanically Ventilated, Thick Trach secretions RHYTHM: Afib LUNGS: bilateral rhonchi, trach site clean CARDIAC: normal S1 and S2, irregularly irregular, other - no rub ABDOMEN: normal bowel sounds, non tender, soft, G-Tube intact, other - left groin- no bleeding at old cath site EXTREMITIES: normal inspection, trace edema Laboratory Tests Test 02/11/20 14:53 02/11/20 17:37 POC Whole Blood Glucose 113 MG/DL (74-106) H 106 MG/DL (74-106) Assessment/Plan Assessment/Plan Chronic respiratory failure with trach Severe sepsis PAFib now in sinus rhythm Ischemic cardiomyopathy - hx CABG and s/p NSTEMI in Dec 2019. Conduction system disease of the heart Hx of permanent pacemaker explant Acute on chronic systolic and diastolic CHF Pleural effusion Anemia Hypertension/HHD with labile BP. ESRD Hypokalemia Avoid beta flori therapy based on historic risk of bradycardia. Anti-failure and anti-anginal regimen with titration Vent support Abx per ID Continuous cardiac monitoring Anti-HTN regimen being titrated as needed. Transfuse PRBC as needed Replace potassium; check Mg++ levels. Stable for subacute facility from Cardiovascular standpoint Deni Willams MD Feb 12, 2020 04:02
[2020-02-12] MEDS: Metoclopramide 10mg/2ml Inj IVP SCH ×3 (05:12→17:56)
[2020-02-12] MEDS: HydrALAZINE 25mg tab GT SCH ×3 (05:13→17:56)
[2020-02-12] MEDS: HYDROcodone/Acetamin 5/325 tab ORAL PRN ×3 (05:13→21:37)
--- NOTE | 2020-02-12 06:30 | Hematology/Onc Progress Note ---
Assessment/Plan Assessment/Plan IM note Covering for Dr. Dong Assessment and Recs # Leukocytosis, now with pna v other process --> Cxr: : Large left pleural effusion, Bilateral interstitial and airspace infiltrates versus edema --> wbc 16-->26->30-->10->8 --> ABX zosyn-->angeol/vanc-->angelo/tobra->off --> ID recs are noted --> smear has been reviewed # Anemia of chronic disease due to underlying chronic medical issues, multifactorial --> Anemia workup has been reviewed, cw acd --> No evidence of hemolysis is noted, peripheral smear has been reviewed. --> Hgb goal >7. Transfuse prn. --> Epogen required, to continue --> Medications have been reviewed --> low threshold for gi evaluation in case has occult + --> hgb 7.1-->7.8-->>>5.9-->7.3-->7-->7.2-->7.9-->8.6-->8.2-->8.5-->7->8.5 --> 1 unit prbc10/17, 2 units 12/3. 02/06 --> gi eval as needed # Coagulopathy with inr 1.5 --> consider vit k/ffp as needed preprocedure --> labs noted # JAVIER initially >2 --> on ivfs --> per renal # Elevated d-dimer --> venous duplex ordered-->reviewed, is neg --> in prior neg # Dysphagia s/p peg --> as per gi # Thoracic aortic dissection --> s/p repair early 2017 # Chronic Resp failure -> s/p trach/vent # Psychiatric history on ativan/haldol # [place] # Dvt ppx --> scds The timing of this note does not necessarily reflect the time of the patient was seen. Greatly appreciate consultation. Subjective Allergies: Coded Allergies: No Known Allergies (Unverified , 10/10/17) All Systems: reviewed and negative except above Subjective 01/16 left femoral arden in place, on vent, icu, hgb better 6 labs are noted, wbc 30, hgb 7, may require prbc today 01/27 is off amio, on epoogen, hgb reviewed, 7.2, transfuse if unstable 01/28 pain meds given, some foaming around mouth, no bleeding 01/29 hd was done yesterday, no bleedig, cbc pending, asa given 01/30 labs are noted, no bleeding, labs reviewed, pending meds 02/01 labs are noted, no bleeding, meds reviewed, no f/c, trach/vent 02/02 labs noted, no night sweats, t/v, labs ordered for am 02/03 labs reviewed, meds noted, no bleeding, hgb 7.9 02/04 meds noted, no bleeding, labs reviewed, hgb 8 02/05 labs are pending, some secretions are noted, no bleeding 02/[address] still with bleed dw Rn, will place seal/further pressure 02/08 labs reviewed, grimacing, meds noted, vitals noted, seen by cards 02/09 on vent, meds reviewed, hd as per renal, labs pending 02/10 vent, comfortable, no bleeding or chills, hgb stable 02/11 nv, on vent, hgb 8.5, no new events, stable, dw Rn Objective Objective Current Medications Medications (Trade) Dose Ordered Sig/Penny Route PRN Reason Start Time Stop Time Status Last Admin Dose Admin Acetaminophen (Tylenol) 500 mg Q6H PRN GT FEVER 01/21/20 20:45 02/20/20 20:44 02/12/20 00:42 Acetaminophen (Tylenol) 650 mg Q6H PRN GT For Pain 02/09/20 17:15 03/10/20 17:14 02/09/20 17:39 Acetaminophen/ Hydrocodone Bitart ([place] 5/325) 1 tab Q6H PRN ORAL For Pain 02/07/20 11:00 02/14/20 10:59 02/12/20 05:13 Amantadine HCl (Symmetrel) 100 mg TWICE A DAY GT 01/31/20 18:00 03/01/20 17:59 02/11/20 17:16 Amlodipine Besylate (Norvasc) 5 mg BID GT 01/22/20 18:00 02/20/20 15:44 02/11/20 17:16 Aspirin (ASA) 81 mg DAILY GT 01/20/20 09:00 03/05/20 08:59 02/11/20 08:12 Atorvastatin Calcium (Lipitor) 10 mg BEDTIME GT 01/17/20 21:00 04/16/20 20:59 02/11/20 20:08 Chlorhexidine Gluconate (Ling-Hex 2%) 1 applic DAILY@1999 TOPIC 01/17/20 20:00 04/16/20 19:59 02/11/20 20:08 Dextrose (Dextrose 50%) 25 ml Q30M PRN IV Hypoglycemia 01/15/20 22:15 04/14/20 22:14 Dextrose (Dextrose 50%) 50 ml Q30M PRN IV Hypoglycemia 01/15/20 22:15 04/14/20 22:14 01/22/20 17:54 Docusate Sodium (Colace) 200 mg BIDPRN PRN GT Constipation 01/31/20 07:45 03/01/20 07:44 02/04/20 11:21 Epoetin Gelacio (Epoetin Gelacio(ESRD on dialysis)) 10,000 unit MON- SUBQ 01/27/20 21:00 04/26/20 20:59 02/10/20 20:37 Hydralazine HCl (Apresoline) 25 mg Q6HR GT 01/26/20 18:15 04/25/20 18:14 02/12/20 05:13 Isosorbide Dinitrate (Isordil) 20 mg TID GT 01/25/20 09:00 02/19/20 08:59 02/11/20 17:16 Lactulose (Cephulac) 20 gm THREE TIMES A DAY GT 02/04/20 13:00 03/05/20 12:59 02/11/20 17:49 Lansoprazole (Prevacid) 30 mg BID GT 01/19/20 18:00 02/18/20 17:59 02/11/20 17:16 Metoclopramide HCl (Reglan) 5 mg Q6HR IVP 02/05/20 07:00 03/06/20 06:59 02/12/20 05:12 Metoprolol Tartrate (Lopressor) 25 mg Q12HR ORAL 01/27/20 21:00 04/22/20 20:59 02/11/20 20:07 Polyethylene Glycol (Miralax) 17 gm BEDTIME GT 02/04/20 21:00 03/05/20 20:59 02/10/20 20:27 Sodium Hypochlorite (Dakin's Quarter Strength) 1 applic DAILY TOPIC 01/30/20 09:00 02/29/20 08:59 02/11/20 08:12 Zinc Oxide (Zinc Oxide) 1 applic TIDPRN PRN TOPIC diogenes GT 01/16/20 13:15 04/15/20 13:14 01/16/20 14:55 Last 24 Hour Vital Signs Date Time Temp Pulse Resp B/P (MAP) Pulse Ox O2 Delivery O2 Flow Rate FiO2 02/12/20 05:13 127/67 02/12/20 04:00 66 02/12/20 04:00 Mechanical Ventilator Mechanical Ventilator 02/12/20 04:00 97.9 65 19 129/62 (84) 100 02/12/20 04:00 40 02/12/20 03:10 74 24 40 02/12/20 00:53 Mechanical Ventilator Mechanical Ventilator 02/12/20 00:00 40 02/12/20 00:00 98.0 64 18 142/65 (90) 97 02/12/20 00:00 69 02/11/20 23:42 142/65 02/11/20 23:30 72 22 40 02/11/20 20:07 76 138/66 02/11/20 20:00 75 02/11/20 20:00 Mechanical Ventilator Mechanical Ventilator 02/11/20 20:00 98.8 76 23 138/66 (90) 97 02/11/20 20:00 40 02/11/20 19:20 70 26 40 02/11/20 17:49 132/61 02/11/20 17:16 129/56 02/11/20 17:16 67 129/56 02/11/20 16:00 67 02/11/20 16:00 98.6 66 20 129/56 (80) 99 02/11/20 16:00 40 02/11/20 16:00 Mechanical Ventilator Mechanical Ventilator 02/11/20 15:19 67 22 40 02/11/20 13:13 129/53 02/11/20 12:00 64 02/11/20 12:00 Mechanical Ventilator Mechanical Ventilator 02/11/20 12:00 97.3 67 20 135/65 (88) 97 02/11/20 12:00 40 02/11/20 11:42 124/63 02/11/20 11:14 64 19 40 02/11/20 08:50 63 119/56 02/11/20 08:12 63 135/62 02/11/20 08:11 135/62 02/11/20 08:00 Mechanical Ventilator Mechanical Ventilator 02/11/20 08:00 61 02/11/20 08:00 40 02/11/20 07:56 98.1 63 20 135/62 (86) 97 02/11/20 07:12 63 18 40 02/11/20 05:06 137/67 02/11/20 04:00 40 02/11/20 04:00 Mechanical Ventilator Mechanical Ventilator 02/11/20 04:00 98.2 66 20 139/67 (91) 100 02/11/20 04:00 61 02/11/20 03:30 64 25 40 02/11/20 00:00 61 02/11/20 00:00 40 02/11/20 00:00 98.1 65 20 141/58 (85) 100 02/11/20 00:00 Mechanical Ventilator Mechanical Ventilator 02/10/20 23:33 137/65 02/10/20 23:30 69 17 40 02/10/20 20:31 67 126/67 02/10/20 20:00 40 02/10/20 20:00 Mechanical Ventilator Mechanical Ventilator 02/10/20 20:00 66 02/10/20 20:00 98.6 70 16 127/69 (88) 100 02/10/20 19:20 66 15 40 02/10/20 17:59 135/64 02/10/20 17:04 131/60 02/10/20 17:04 66 131/60 02/10/20 16:00 40 02/10/20 16:00 98.2 72 17 131/60 (83) 100 02/10/20 16:00 Mechanical Ventilator Mechanical Ventilator 02/10/20 16:00 66 02/10/20 15:46 65 14 40 02/10/20 13:05 141/71 02/10/20 12:13 143/63 02/10/20 12:00 68 02/10/20 12:00 98.6 66 17 143/63 (89) 100 12/28/20 12:00 40 02/10/20 12:00 Mechanical Ventilator Mechanical Ventilator 02/10/20 11:46 66 20 40 02/10/20 09:50 72 125/60 02/10/20 08:16 137/60 02/10/20 08:16 67 137/60 02/10/20 08:00 40 02/10/20 08:00 Mechanical Ventilator Mechanical Ventilator 02/10/20 08:00 68 02/10/20 07:59 98.6 67 17 137/60 (85) 95 02/10/20 07:28 67 16 40 Intake and Output 02/11/20 02/12/20 19:00 07:00 Intake Total 720 ml 520 ml Output Total 250 ml 260 ml Balance 470 ml 260 ml Free Water 300 ml 100 ml Tube Feeding 420 ml 420 ml Output Urine Total 250 ml 260 ml # Bowel Movements 3 Labs Test 02/09/20 08:15 02/09/20 12:01 02/09/20 17:43 02/09/20 22:54 White Blood Count 7.8 K/UL (4.8-10.8) Red Blood Count 3.18 M/UL (4.20-5.40) Hemoglobin 8.8 G/DL (12.0-16.0) Hematocrit 25.3 % (37.0-47.0) Mean Corpuscular Volume 80 FL (80-99) Mean Corpuscular Hemoglobin 27.8 PG (27.0-31.0) Mean Corpuscular Hemoglobin Concent 34.9 G/DL (32.0-36.0) Red Cell Distribution Width 16.8 % (11.6-14.8) Platelet Count 388 K/UL (150-450) Mean Platelet Volume 5.7 FL (6.5-10.1) Neutrophils (%) (Auto) 74.2 % (45.0-75.0) Lymphocytes (%) (Auto) 16.9 % (20.0-45.0) Monocytes (%) (Auto) 6.8 % (1.0-10.0) Eosinophils (%) (Auto) 1.5 % (0.0-3.0) Basophils (%) (Auto) 0.7 % (0.0-2.0) Sodium Level 137 MMOL/L (136-145) Potassium Level 3.5 MMOL/L (3.5-5.1) Chloride Level 99 MMOL/L (98-107) Carbon Dioxide Level 31 MMOL/L (21-32) Anion Gap 7 mmol/L (5-15) Blood Urea Nitrogen 44 mg/dL (7-18) Creatinine 2.6 MG/DL (0.55-1.30) Estimat Glomerular Filtration Rate 19.7 mL/min (>60) Glucose Level 93 MG/DL (74-106) Uric Acid 3.1 MG/DL (2.6-7.2) Calcium Level 8.5 MG/DL (8.5-10.1) Phosphorus Level 2.9 MG/DL (2.5-4.9) Total Bilirubin 0.4 MG/DL (0.2-1.0) Aspartate Amino Transf (AST/SGOT) 28 U/L (15-37) Alanine Aminotransferase (ALT/SGPT) 9 U/L (12-78) Alkaline Phosphatase 193 U/L (46-116) C-Reactive Protein, Quantitative 17.1 mg/dL (0.00-0.90) Pro-B-Type Natriuretic Peptide > 11428 pg/mL (0-125) Total Protein 7.0 G/DL (6.4-8.2) Albumin 1.9 G/DL (3.4-5.0) Globulin 5.1 g/dL Albumin/Globulin Ratio 0.4 (1.0-2.7) POC Whole Blood Glucose 94 MG/DL (74-106) 82 MG/DL (74-106) 87 MG/DL (74-106) Test 02/10/20 05:17 02/10/20 12:28 02/10/20 17:22 02/11/20 03:25 POC Whole Blood Glucose 84 MG/DL (74-106) 90 MG/DL (74-106) White Blood Count 11.8 K/UL (4.8-10.8) Red Blood Count 3.04 M/UL (4.20-5.40) Hemoglobin 8.5 G/DL (12.0-16.0) Hematocrit 25.7 % (37.0-47.0) Mean Corpuscular Volume 85 FL (80-99) Mean Corpuscular Hemoglobin 27.9 PG (27.0-31.0) Mean Corpuscular Hemoglobin Concent 33.0 G/DL (32.0-36.0) Red Cell Distribution Width 15.5 % (11.6-14.8) Platelet Count 352 K/UL (150-450) Mean Platelet Volume 5.3 FL (6.5-10.1) Neutrophils (%) (Auto) 78.4 % (45.0-75.0) Lymphocytes (%) (Auto) 14.9 % (20.0-45.0) Monocytes (%) (Auto) 4.0 % (1.0-10.0) Eosinophils (%) (Auto) 1.9 % (0.0-3.0) Basophils (%) (Auto) 0.9 % (0.0-2.0) Sodium Level 132 MMOL/L (136-145) Potassium Level 3.0 MMOL/L (3.5-5.1) Chloride Level 94 MMOL/L (98-107) Carbon Dioxide Level 29 MMOL/L (21-32) Anion Gap 9 mmol/L (5-15) Blood Urea Nitrogen 59 mg/dL (7-18) Creatinine 3.4 MG/DL (0.55-1.30) Estimat Glomerular Filtration Rate 14.5 mL/min (>60) Glucose Level 95 MG/DL (74-106) Calcium Level 8.8 MG/DL (8.5-10.1) Phosphorus Level 2.7 MG/DL (2.5-4.9) Magnesium Level 2.8 MG/DL (1.8-2.4) Total Bilirubin 0.4 MG/DL (0.2-1.0) Aspartate Amino Transf (AST/SGOT) 22 U/L (15-37) Alanine Aminotransferase (ALT/SGPT) 7 U/L (12-78) Alkaline Phosphatase 172 U/L (46-116) Total Protein 6.9 G/DL (6.4-8.2) Albumin 1.8 G/DL (3.4-5.0) Globulin 5.1 g/dL Albumin/Globulin Ratio 0.4 (1.0-2.7) Test 02/11/20 14:53 02/11/20 17:37 02/12/20 04:24 02/12/20 05:23 POC Whole Blood Glucose 113 MG/DL (74-106) 106 MG/DL (74-106) 103 MG/DL (74-106) Height (Feet): 5 Height (Inches): 6.00 Weight (Pounds): 150 Objective Physical Exam: Vitals: reviewed General: NAD HEENT: nc, at Neck: supple ++trach/vent Chest: clear breath sounds bilaterally Cardiovascular: RRR, no s3, s4 Abdomen: soft, nontender, nd +gtube Extremities: no cce, normal range of motion Neuro: alert Evan Muhammad MD Feb 12, 2020 06:30
--- NOTE | 2020-02-12 06:32 | NUR ---
NURSE NOTES: Pt is seen sleeping, no signs of respiratory distress. O2 sat- 100%. Continue to monitor.
[2020-02-12 06:42] LABS: BASOPHILS % (AUTO) 0.7 % (0.0-2.0); HEMATOCRIT 24.1 % (37.0-47.0); HEMOGLOBIN 8.1 G/DL (12.0-16.0); LYMPHOCYTES % (AUTO) 14.3 % (20.0-45.0); MEAN CORPUSCULAR VOLUME 83 FL (80-99); MONOCYTES % (AUTO) 4.1 % (1.0-10.0); NEUTROPHILS % (AUTO) 80.9 % (45.0-75.0); PLATELET COUNT 294 K/UL (150-450); RED BLOOD COUNT 2.89 M/UL (4.20-5.40); RED CELL DISTRIBUTION WIDTH 14.6 % (11.6-14.8); WHITE BLOOD COUNT 10.4 K/UL (4.8-10.8)
[2020-02-12 06:45] LABS: ALBUMIN 1.8 G/DL (3.4-5.0); ALBUMIN/GLOBULIN RATIO 0.3 (1.0-2.7); BILIRUBIN,TOTAL 0.4 MG/DL (0.2-1.0); CALCIUM 8.8 MG/DL (8.5-10.1); CREATININE 3.6 MG/DL (0.55-1.30); POTASSIUM 3.1 MMOL/L (3.5-5.1)
--- NOTE | 2020-02-12 07:05 | NUR ---
NURSE NOTES: Received patient report from ERASMO Forte. Patient is AOx2, in bed awake. Patient on vent AC16 VT 500 FiO2 60 PEEP 5, breathing is even and unlabored with no signs of respiratory distress. No pain or discomfort noted at this time. With raymond noted, intact and patent,discharge planning waiting for placement. Bed in lowest position, locked with side rails x2 up. Call light within reach.
--- NOTE | 2020-02-12 07:18 | NUR ---
NURSE HAND-OFF REPORT: Important Events on Shift: Pt is for discharge planning- waiting for placement, pain in pain- meds given as ordered Patient Status: Stable Diet: GTF Pending Orders: None Pending Results/Labs: none Pending MD notification: None Latest Vital Signs: Temperature 97.9 , Pulse 66 , B/P 127 /67 , Respiratory Rate 19 , O2 SAT 100 , Mechanical Ventilator, O2 Flow Rate . Vital Sign Comment: WNL EKG Rhythm: Sinus Rhythm Rhythm change?: N MD Notified?: N -Dr. Екатерина HATFIELD Response: Order Received& Read Back Latest [place] Fall Score: 60 Fall Risk: High Risk Safety Measures: Call light Within Reach, Bed Alarm Zone 1, Side Rails Side Rails x2, Bed position Low and Locked. Fall Precautions: Yellow Socks Report given to [Esteban Ang RN].
--- NOTE | 2020-02-12 07:42 | General Progress Note ---
Subjective ROS Limited/Unobtainable: No Allergies: Coded Allergies: No Known Allergies (Unverified , 10/10/17) Objective Last 24 Hour Vital Signs Date Time Temp Pulse Resp B/P (MAP) Pulse Ox O2 Delivery O2 Flow Rate FiO2 02/12/20 05:13 127/67 02/12/20 04:00 66 02/12/20 04:00 Mechanical Ventilator Mechanical Ventilator 02/12/20 04:00 97.9 65 19 129/62 (84) 100 02/12/20 04:00 40 02/12/20 03:10 74 24 40 02/12/20 00:53 Mechanical Ventilator Mechanical Ventilator 02/12/20 00:00 40 02/12/20 00:00 98.0 64 18 142/65 (90) 97 02/12/20 00:00 69 02/11/20 23:42 142/65 02/11/20 23:30 72 22 40 02/11/20 20:07 76 138/66 02/11/20 20:00 75 02/11/20 20:00 Mechanical Ventilator Mechanical Ventilator 02/11/20 20:00 98.8 76 23 138/66 (90) 97 02/11/20 20:00 40 02/11/20 19:20 70 26 40 02/11/20 17:49 132/61 02/11/20 17:16 129/56 02/11/20 17:16 67 129/56 02/11/20 16:00 67 02/11/20 16:00 98.6 66 20 129/56 (80) 99 02/11/20 16:00 40 02/11/20 16:00 Mechanical Ventilator Mechanical Ventilator 02/11/20 15:19 67 22 40 02/11/20 13:13 129/53 02/11/20 12:00 64 02/11/20 12:00 Mechanical Ventilator Mechanical Ventilator 02/11/20 12:00 97.3 67 20 135/65 (88) 97 02/11/20 12:00 40 02/11/20 11:42 124/63 02/11/20 11:14 64 19 40 02/11/20 08:50 63 119/56 02/11/20 08:12 63 135/62 02/11/20 08:11 135/62 02/11/20 08:00 Mechanical Ventilator Mechanical Ventilator 02/11/20 08:00 61 02/11/20 08:00 40 02/11/20 07:56 98.1 63 20 135/62 (86) 97 Intake and Output 02/11/20 02/12/20 19:00 07:00 Intake Total 720 ml 520 ml Output Total 250 ml 260 ml Balance 470 ml 260 ml Free Water 300 ml 100 ml Tube Feeding 420 ml 420 ml Output Urine Total 250 ml 260 ml # Bowel Movements 3 Laboratory Tests 02/11/20 14:53: POC Whole Blood Glucose 113H 02/11/20 17:37: POC Whole Blood Glucose 106 02/12/20 04:24: White Blood Count 10.4, Red Blood Count 2.89L, Hemoglobin 8.1L, Hematocrit 24.1L , Mean Corpuscular Volume 83, Mean Corpuscular Hemoglobin 27.9, Mean Corpuscular Hemoglobin Concent 33.5, Red Cell Distribution Width 14.6, Platelet Count 294, Mean Platelet Volume 5.4L, Neutrophils (%) (Auto) 80.9H, Lymphocytes (%) (Auto) 14.3L, Monocytes (%) (Auto) 4.1, Eosinophils (%) (Auto) 0.0, Basophils (%) (Auto) 0.7, Sodium Level 132L, Potassium Level 3.1L, Chloride Level 93L, Carbon Dioxide Level 31, Anion Gap 8, Blood Urea Nitrogen 67H, Creatinine 3.6H, Estimat Glomerular Filtration Rate 13.6, Glucose Level 91, Uric Acid 4.4, Calcium Level 8.8, Phosphorus Level 3.0, Magnesium Level 3.3H, Total Bilirubin 0.4, Aspartate Amino Transf (AST/SGOT) 18, Alanine Aminotransferase (ALT/SGPT) 7L, Alkaline Phosphatase 167H, Total Protein 7.0, Albumin 1.8L, Globulin 5.2, Albumin/Globulin Ratio 0.3L 02/12/20 05:23: POC Whole Blood Glucose 103 Height (Feet): 5 Height (Inches): 6.00 Weight (Pounds): 150 General Appearance: no apparent distress EENT: normal ENT inspection Neck: supple Cardiovascular: normal rate Respiratory/Chest: decreased breath sounds Abdomen: normal bowel sounds, non tender, soft Extremities: non-tender Assessment/Plan Problem List: (1) Hx of CABG ICD Codes: Z95.1 - Presence of aortocoronary bypass graft SNOMED: 100844122, 747011008 (2) History of tracheostomy ICD Codes: Z98.890 - Other specified postprocedural states SNOMED: 295999360, 124602690 (3) PEG (percutaneous endoscopic gastrostomy) status ICD Codes: Z93.1 - Gastrostomy status SNOMED: 106610036, 353785434 (4) S/P aortic dissection repair ICD Codes: Z98.890 - Other specified postprocedural states SNOMED: 141739651, 010090407 (5) Renal failure ICD Codes: N19 - Unspecified kidney failure SNOMED: 42239117, 309252881 (6) Anemia ICD Codes: D64.9 - Anemia, unspecified SNOMED: 143408731 Assessment/Plan: stable H&H repeat stool ob GTF some GT leak reglan topical Zinc oxide HD per nephrology persistent elevated lipase\ ct reviewed s/p one unit prbc cbc in Inder Mccauley MD Feb 12, 2020 07:42
[2020-02-12 08:00] VITALS: BP 132/70
[2020-02-12] MEDS: Lactulose 20gm/30ml UDC GT SCH ×3 (09:04→17:56)
[2020-02-12] MEDS: Dakin's 0.125% Soln (Quarter Strength) 16oz TOPIC SCH (09:05)
[2020-02-12] MEDS: Aspirin Baby 81mg GT SCH (09:05)
[2020-02-12] MEDS: Amantadine 100mg cap GT SCH ×2 (09:05→17:56)
--- NOTE | 2020-02-12 10:16 | NUR ---
*-*DISCHARGE PLANNING*-* PATIENT HAS BEEN A REFERRED TO: [facility] P: [phone] [facility] [place] , NOT ACCEPTING ANY PATIENTS AT THIS TIME.
[2020-02-12] MEDS ORDERED: NS 275 ML IVPB SCH (11:00)
[2020-02-12 12:00] VITALS: BP 124/59
--- NOTE | 2020-02-12 13:33 | NUR ---
High Risk Case ManagerInternet Sales Representative SI: Respiratory Failure, Trach/Vent Dependent, JAVIER T 97.6, HR 68, RR 19, BP 132/70 AC 14, TV 500, FiO2 40%, O2 Sat 100% WBC 10.4, BUN 67, Creatinine 3.6, Na+ 132, K+ 3.1 IS: Reglan IV Lactulose GT Step Down Status
--- NOTE | 2020-02-12 14:32 | Pulmonology Progress Note ---
Subjective ROS Limited/Unobtainable: No Interval Events: None new Constitutional: Reports: no symptoms HEENT: Repors: no symptoms Respiratory: Reports: no symptoms Cardiovascular: Reports: no symptoms Gastrointestinal/Abdominal: Reports: no symptoms Allergies: Coded Allergies: No Known Allergies (Unverified , 10/10/17) All Systems: reviewed and negative except above Objective Last 24 Hour Vital Signs Date Time Temp Pulse Resp B/P (MAP) Pulse Ox O2 Delivery O2 Flow Rate FiO2 02/12/20 12:29 124/59 02/12/20 12:28 124/59 02/12/20 12:00 Mechanical Ventilator Mechanical Ventilator 02/12/20 12:00 60 02/12/20 12:00 40 02/12/20 12:00 98.1 62 16 124/59 (80) 99 02/12/20 10:55 60 17 40 02/12/20 09:05 68 132/70 02/12/20 09:05 132/70 02/12/20 09:05 68 132/70 02/12/20 08:00 Mechanical Ventilator Mechanical Ventilator 02/12/20 08:00 40 02/12/20 08:00 97.6 68 19 132/70 (90) 100 02/12/20 07:46 62 02/12/20 07:30 63 31 40 02/12/20 05:13 127/67 02/12/20 04:00 66 02/12/20 04:00 Mechanical Ventilator Mechanical Ventilator 02/12/20 04:00 97.9 65 19 129/62 (84) 100 02/12/20 04:00 40 02/12/20 03:10 74 24 40 02/12/20 00:53 Mechanical Ventilator Mechanical Ventilator 02/12/20 00:00 40 02/12/20 00:00 98.0 64 18 142/65 (90) 97 02/12/20 00:00 69 02/11/20 23:42 142/65 02/11/20 23:30 72 22 40 02/11/20 20:07 76 138/66 02/11/20 20:00 75 02/11/20 20:00 Mechanical Ventilator Mechanical Ventilator 02/11/20 20:00 98.8 76 23 138/66 (90) 97 02/11/20 20:00 40 02/11/20 19:20 70 26 40 02/11/20 17:49 132/61 02/11/20 17:16 129/56 02/11/20 17:16 67 129/56 02/11/20 16:00 67 02/11/20 16:00 98.6 66 20 129/56 (80) 99 02/11/20 16:00 40 02/11/20 16:00 Mechanical Ventilator Mechanical Ventilator 02/11/20 15:19 67 22 40 Intake and Output 02/11/20 02/12/20 19:00 07:00 Intake Total 720 ml 520 ml Output Total 250 ml 260 ml Balance 470 ml 260 ml Free Water 300 ml 100 ml Tube Feeding 420 ml 420 ml Output Urine Total 250 ml 260 ml # Bowel Movements 3 General Appearance: no acute distress HEENT: normocephalic, other - trach Respiratory: chest wall non-tender, other - coarse lung sounds Cardiovascular: normal rate, regular rhythm Abdomen: soft, non tender Genitourinary: other - [place] Extremities: other - trace edema Laboratory Tests 02/11/20 14:53: POC Whole Blood Glucose 113H 02/11/20 17:37: POC Whole Blood Glucose 106 02/12/20 04:24: White Blood Count 10.4, Red Blood Count 2.89L, Hemoglobin 8.1L, Hematocrit 24.1L , Mean Corpuscular Volume 83, Mean Corpuscular Hemoglobin 27.9, Mean Corpuscular Hemoglobin Concent 33.5, Red Cell Distribution Width 14.6, Platelet Count 294, Mean Platelet Volume 5.4L, Neutrophils (%) (Auto) 80.9H, Lymphocytes (%) (Auto) 14.3L, Monocytes (%) (Auto) 4.1, Eosinophils (%) (Auto) 0.0, Basophils (%) (Auto) 0.7, Sodium Level 132L, Potassium Level 3.1L, Chloride Level 93L, Carbon Dioxide Level 31, Anion Gap 8, Blood Urea Nitrogen 67H, Creatinine 3.6H, Estimat Glomerular Filtration Rate 13.6, Glucose Level 91, Uric Acid 4.4, Calcium Level 8.8, Phosphorus Level 3.0, Magnesium Level 3.3H, Total Bilirubin 0.4, Aspartate Amino Transf (AST/SGOT) 18, Alanine Aminotransferase (ALT/SGPT) 7L, Alkaline Phosphatase 167H, Total Protein 7.0, Albumin 1.8L, Globulin 5.2, Albumin/Globulin Ratio 0.3L 02/12/20 05:23: POC Whole Blood Glucose 103 Current Medications Medications (Trade) Dose Ordered Sig/Penny Route PRN Reason Start Time Stop Time Status Last Admin Dose Admin Acetaminophen (Tylenol) 500 mg Q6H PRN GT FEVER 01/21/20 20:45 02/20/20 20:44 02/12/20 00:42 Acetaminophen (Tylenol) 650 mg Q6H PRN GT For Pain 02/09/20 17:15 03/10/20 17:14 02/09/20 17:39 Acetaminophen/ Hydrocodone Bitart ([place] 5/325) 1 tab Q6H PRN ORAL For Pain 02/07/20 11:00 02/14/20 10:59 02/12/20 12:29 Amantadine HCl (Symmetrel) 100 mg TWICE A DAY GT 01/31/20 18:00 03/01/20 17:59 02/12/20 09:05 Amlodipine Besylate (Norvasc) 5 mg BID GT 01/22/20 18:00 02/20/20 15:44 02/12/20 09:05 Aspirin (ASA) 81 mg DAILY GT 01/20/20 09:00 03/05/20 08:59 02/12/20 09:05 Atorvastatin Calcium (Lipitor) 10 mg BEDTIME GT 01/17/20 21:00 04/16/20 20:59 02/11/20 20:08 Chlorhexidine Gluconate (Ling-Hex 2%) 1 applic DAILY@2000 TOPIC 01/17/20 20:00 04/16/20 19:59 02/11/20 20:08 Dextrose (Dextrose 50%) 25 ml Q30M PRN IV Hypoglycemia 01/15/20 22:15 04/14/20 22:14 Dextrose (Dextrose 50%) 50 ml Q30M PRN IV Hypoglycemia 01/15/20 22:15 04/14/20 22:14 01/22/20 17:54 Docusate Sodium (Colace) 200 mg BIDPRN PRN GT Constipation 01/31/20 07:45 03/01/20 07:44 02/04/20 11:21 Epoetin Gelacio (Epoetin Gelacio(ESRD on dialysis)) 10,000 unit MON-MON-MON SUBQ 01/27/20 21:00 04/26/20 20:59 02/10/20 20:37 Hydralazine HCl (Apresoline) 25 mg Q6HR GT 01/26/20 18:15 04/25/20 18:14 02/12/20 12:28 Isosorbide Dinitrate (Isordil) 20 mg TID GT 01/25/20 09:00 02/19/20 08:59 02/12/20 12:29 Lactulose (Cephulac) 20 gm THREE TIMES A DAY GT 02/04/20 13:00 03/05/20 12:59 02/12/20 12:29 Lansoprazole (Prevacid) 30 mg BID GT 01/19/20 18:00 02/18/20 17:59 02/12/20 09:05 Metoclopramide HCl (Reglan) 5 mg Q6HR IVP 02/05/20 07:00 03/06/20 06:59 02/12/20 12:28 Metoprolol Tartrate (Lopressor) 25 mg Q12HR ORAL 01/27/20 21:00 04/22/20 20:59 02/12/20 09:05 Polyethylene Glycol (Miralax) 17 gm BEDTIME GT 02/04/20 21:00 03/05/20 20:59 02/10/20 20:27 Sodium Hypochlorite (Dakin's Quarter Strength) 1 applic DAILY TOPIC 01/30/20 09:00 02/29/20 08:59 02/12/20 09:05 Zinc Oxide (Zinc Oxide) 1 applic TIDPRN PRN TOPIC diogenes GT 01/16/20 13:15 04/15/20 13:14 01/16/20 14:55 Assessment/Plan Assessment/Plan Assessment/Plan 1. Large left effusion. - S/p thoracentesis; CXR better - pleural fluid pathology report: negative for malignant cell 2. Chronic respiratory failure. - Continue trach care - Cont AC mode - Currently saturating at 97% 3. Sepsis; improving 4. Anemia - improving - s/p transfusion - s/p Epogen s/p HD on broad-spectrum antibiotics. Pulmonary hygiene. DVT and GI prophylaxes. Dc planning in place FiO2 increased previously to 60%; now decreased to 40%; will wean further as tolerated Elijah Hickman MD, MD Feb 12, 2020 14:32
[2020-02-12 16:00] VITALS: BP 116/53
--- NOTE | 2020-02-12 16:13 | Nephrology Progress Note ---
Assessment/Plan Problem List: (1) ARF (acute renal failure) (2) Pacemaker (3) Sepsis (4) Hyponatremia Assessment (1) JAVIER (acute kidney injury) (2) Renal failure (ARF), acute on chronic (3) Feeding by G-tube (4) Tracheostomy in place (5) Electrolyte imbalance, hyponatremia (6) Anemia, severe (7) Respiratory failure, acute and chronic (8) Elevated lipase, pancreatitis (9) Elevated troponin I (10) Sepsis Plan February 11: Labs reviewed. Serum creatinine 3.6. Low potassium addressed. Dialysis as needed. Will monitor renal parameters. February 10: Labs reviewed. Potassium replaced. Serum sodium 132. Check labs tomorrow. Dialysis as needed. February 09: No labs drawn today. Last dialysis February 07. Will check lab tomorrow. Hemodialysis as needed. February 08: Labs reviewed. Dialyzed yesterday. Stable from renal standpoint of view. Continue to monitor electrolytes and order dialysis as needed. February 07: Labs reviewed. Due for dialysis today. Continue per consultants. February 06: Labs reviewed. Last dialysis February 03. Will postpone today's dialysis to tomorrow. Continue per current treatment plan. February 05: Labs reviewed. Last dialysis February 03. Will order dialysis tomorrow. Waiting for tunneled catheter placement. February 04: Labs reviewed. Dialyzed yesterday. With a plan for insertion of a tunneled dialysis catheter and discontinue left groin dialysis catheter afterwards. Check labs in a.m. Discussed with Dr. Dong. February 03: Labs reviewed. Due for dialysis today. Continue per consultants. February 02: Labs reviewed. Will order dialysis tomorrow. Continue per consultants. February 01: Labs reviewed. Creatinine gradually rising. Will dialyze as needed. Continue to monitor renal parameters. January 31: Last dialysis January 29. Labs reviewed. No need for dialysis today. Continue per current management. Hemodialysis as needed. Will check renal parameters and chemistries tomorrow. January 30: Patient was dialyzed yesterday. No labs drawn today. Continue to monitor renal parameters and dialyze as needed. Continue per consultants and PMD. January 29: Patient due for dialysis today. Today's can panel reviewed. Continue to monitor renal parameters and dialysis as needed. January 28: Patient last dialyzed January 26. No labs drawn today. Will order dialysis tomorrow. Check chemistry panel tomorrow. Continue per consultants. January 27: Patient was dialyzed yesterday . Labs were reviewed. Electrolytes within normal limit. Blood pressure stable. January 26: When visited the patient earlier today the patient was on dialysis. Tolerating well. Labs reviewed. Blood pressure stable. January 25: Dialysis for tomorrow. Labs reviewed. Hemoglobin remains low. Will adjust blood pressure medication. Hydralazine added to the regimen January 24: Last dialyzed January 22. Labs reviewed. Status quo. Will dialyze as needed. Low hemoglobin noted. Transfusion per PMD decision. Epogen started. \January 23: Dialyzed yesterday. Today's labs reviewed. Continue to monitor renal parameters and arrange for dialysis as needed. Continue per PMD. January 22: Seen earlier during dialysis. Labs reviewed. Medication list re viewed. Continue current management. January 21: Labs reviewed. Medication list reviewed. Next hemodialysis tomorrow. Blood pressure medication adjusted. January 20: Dialyzed yesterday. Labs reviewed. Continue per current management. Dialysis as needed. Add Norvasc to blood pressure regimen January 19: Due for dialysis today. Labs reviewed. Continue her current management. Continue to monitor renal parameters and electrolytes. January 18: Dialyzed yesterday. Labs reviewed. Renal parameters electrolytes much improved. Dialysis again tomorrow. Continue rest. January 17: Dialyzed this morning. Labs reviewed. Renal parameters and electrolyte abnormalities improved. Discussed with RN. Continue per consultants. January 16: Dialyzed yesterday. Labs improved. Next dialysis tomorrow. Continue per consultants. January 15: Patient to have dialysis catheter. Emergency dialysis for correction of uremia and electrolyte imbalances Antibiotics Transfusion Continue to monitor renal parameters Per orders Discussed with RN Subjective ROS Limited/Unobtainable: Yes Objective Objective Last 24 Hour Vital Signs Date Time Temp Pulse Resp B/P (MAP) Pulse Ox O2 Delivery O2 Flow Rate FiO2 02/12/20 16:00 40 02/12/20 16:00 97.9 68 16 116/53 (74) 98 02/12/20 16:00 Mechanical Ventilator Mechanical Ventilator 02/12/20 12:29 124/59 02/12/20 12:28 124/59 02/12/20 12:00 Mechanical Ventilator Mechanical Ventilator 02/12/20 12:00 60 02/12/20 12:00 40 02/12/20 12:00 98.1 62 16 124/59 (80) 99 02/12/20 10:55 60 17 40 02/12/20 09:05 68 132/70 02/12/20 09:05 132/70 02/12/20 09:05 68 132/70 02/12/20 08:00 Mechanical Ventilator Mechanical Ventilator 02/12/20 08:00 40 02/12/20 08:00 97.6 68 19 132/70 (90) 100 02/12/20 07:46 62 02/12/20 07:30 63 31 40 02/12/20 05:13 127/67 02/12/20 04:00 66 02/12/20 04:00 Mechanical Ventilator Mechanical Ventilator 02/12/20 04:00 97.9 65 19 129/62 (84) 100 02/12/20 04:00 40 02/12/20 03:10 74 24 40 02/12/20 00:53 Mechanical Ventilator Mechanical Ventilator 02/12/20 00:00 40 02/12/20 00:00 98.0 64 18 142/65 (90) 97 02/12/20 00:00 69 02/11/20 23:42 142/65 02/11/20 23:30 72 22 40 02/11/20 20:07 76 138/66 02/11/20 20:00 75 02/11/20 20:00 Mechanical Ventilator Mechanical Ventilator 02/11/20 20:00 98.8 76 23 138/66 (90) 97 02/11/20 20:00 40 02/11/20 19:20 70 26 40 02/11/20 17:49 132/61 02/11/20 17:16 129/56 02/11/20 17:16 67 129/56 Intake and Output 02/11/20 02/12/20 19:00 07:00 Intake Total 720 ml 520 ml Output Total 250 ml 260 ml Balance 470 ml 260 ml Free Water 300 ml 100 ml Tube Feeding 420 ml 420 ml Output Urine Total 250 ml 260 ml # Bowel Movements 3 Laboratory Tests 02/11/20 17:37: POC Whole Blood Glucose 106 02/12/20 04:24: White Blood Count 10.4, Red Blood Count 2.89L, Hemoglobin 8.1L, Hematocrit 24.1L , Mean Corpuscular Volume 83, Mean Corpuscular Hemoglobin 27.9, Mean Corpuscular Hemoglobin Concent 33.5, Red Cell Distribution Width 14.6, Platelet Count 294, Mean Platelet Volume 5.4L, Neutrophils (%) (Auto) 80.9H, Lymphocytes (%) (Auto) 14.3L, Monocytes (%) (Auto) 4.1, Eosinophils (%) (Auto) 0.0, Basophils (%) (Auto) 0.7, Sodium Level 132L, Potassium Level 3.1L, Chloride Level 93L, Carbon Dioxide Level 31, Anion Gap 8, Blood Urea Nitrogen 67H, Creatinine 3.6H, Estimat Glomerular Filtration Rate 13.6, Glucose Level 91, Uric Acid 4.4, Calcium Level 8.8, Phosphorus Level 3.0, Magnesium Level 3.3H, Total Bilirubin 0.4, Aspartate Amino Transf (AST/SGOT) 18, Alanine Aminotransferase (ALT/SGPT) 7L, Alkaline Phosphatase 167H, Total Protein 7.0, Albumin 1.8L, Globulin 5.2, Albumin/Globulin Ratio 0.3L 02/12/20 05:23: POC Whole Blood Glucose 103 Height (Feet): 5 Height (Inches): 6.00 Weight (Pounds): 150 General Appearance: no apparent distress EENT: other - Trach to vent Cardiovascular: normal rate Respiratory/Chest: decreased breath sounds Abdomen: distended Objective No change Johnny Houston MD Feb 12, 2020 16:13
--- NOTE | 2020-02-12 17:39 | Surgery Progress Note ---
Surgery Progress Note Subjective Procedure Performed Left femoral temporary hemodialysis catheter insertion Additional Comments ill appearing no acute events labs noted micro reviewed Objective Last 24 Hour Vital Signs Date Time Temp Pulse Resp B/P (MAP) Pulse Ox O2 Delivery O2 Flow Rate FiO2 02/12/20 16:00 40 02/12/20 16:00 97.9 68 16 116/53 (74) 98 02/12/20 16:00 62 02/12/20 16:00 Mechanical Ventilator Mechanical Ventilator 02/12/20 12:29 124/59 02/12/20 12:28 124/59 02/12/20 12:00 Mechanical Ventilator Mechanical Ventilator 02/12/20 12:00 60 02/12/20 12:00 40 02/12/20 12:00 98.1 62 16 124/59 (80) 99 02/12/20 10:55 60 17 40 02/12/20 09:05 68 132/70 02/12/20 09:05 132/70 02/12/20 09:05 68 132/70 02/12/20 08:00 Mechanical Ventilator Mechanical Ventilator 02/12/20 08:00 40 02/12/20 08:00 97.6 68 19 132/70 (90) 100 02/12/20 07:46 62 02/12/20 07:30 63 31 40 02/12/20 05:13 127/67 02/12/20 04:00 66 02/12/20 04:00 Mechanical Ventilator Mechanical Ventilator 02/12/20 04:00 97.9 65 19 129/62 (84) 100 02/12/20 04:00 40 02/12/20 03:10 74 24 40 02/12/20 00:53 Mechanical Ventilator Mechanical Ventilator 02/12/20 00:00 40 02/12/20 00:00 98.0 64 18 142/65 (90) 97 02/12/20 00:00 69 02/11/20 23:42 142/65 02/11/20 23:30 72 22 40 02/11/20 20:07 76 138/66 02/11/20 20:00 75 02/11/20 20:00 Mechanical Ventilator Mechanical Ventilator 02/11/20 20:00 98.8 76 23 138/66 (90) 97 02/11/20 20:00 40 02/11/20 19:20 70 26 40 02/11/20 17:49 132/61 I&O Intake and Output 02/11/20 02/12/20 19:00 07:00 Intake Total 720 ml 520 ml Output Total 250 ml 260 ml Balance 470 ml 260 ml Free Water 300 ml 100 ml Tube Feeding 420 ml 420 ml Output Urine Total 250 ml 260 ml # Bowel Movements 3 Dressing: saturated Cardiovascular: RSR Respiratory: decreased breath sounds Abdomen: soft, non-tender, present bowel sounds Extremities: no tenderness, no cyanosis Laboratory Tests Test 02/12/20 04:24 02/12/20 05:23 White Blood Count 10.4 K/UL (4.8-10.8) Red Blood Count 2.89 M/UL (4.20-5.40) L Hemoglobin 8.1 G/DL (12.0-16.0) L Hematocrit 24.1 % (37.0-47.0) L Mean Corpuscular Volume 83 FL (80-99) Mean Corpuscular Hemoglobin 27.9 PG (27.0-31.0) Mean Corpuscular Hemoglobin Concent 33.5 G/DL (32.0-36.0) Red Cell Distribution Width 14.6 % (11.6-14.8) Platelet Count 294 K/UL (150-450) Mean Platelet Volume 5.4 FL (6.5-10.1) L Neutrophils (%) (Auto) 80.9 % (45.0-75.0) H Lymphocytes (%) (Auto) 14.3 % (20.0-45.0) L Monocytes (%) (Auto) 4.1 % (1.0-10.0) Eosinophils (%) (Auto) 0.0 % (0.0-3.0) Basophils (%) (Auto) 0.7 % (0.0-2.0) Sodium Level 132 MMOL/L (136-145) L Potassium Level 3.1 MMOL/L (3.5-5.1) L Chloride Level 93 MMOL/L (98-107) L Carbon Dioxide Level 31 MMOL/L (21-32) Anion Gap 8 mmol/L (5-15) Blood Urea Nitrogen 67 mg/dL (7-18) H Creatinine 3.6 MG/DL (0.55-1.30) H Estimat Glomerular Filtration Rate 13.6 mL/min (>60) Glucose Level 91 MG/DL (74-106) Uric Acid 4.4 MG/DL (2.6-7.2) Calcium Level 8.8 MG/DL (8.5-10.1) Phosphorus Level 3.0 MG/DL (2.5-4.9) Magnesium Level 3.3 MG/DL (1.8-2.4) H Total Bilirubin 0.4 MG/DL (0.2-1.0) Aspartate Amino Transf (AST/SGOT) 18 U/L (15-37) Alanine Aminotransferase (ALT/SGPT) 7 U/L (12-78) L Alkaline Phosphatase 167 U/L (46-116) H Total Protein 7.0 G/DL (6.4-8.2) Albumin 1.8 G/DL (3.4-5.0) L Globulin 5.2 g/dL Albumin/Globulin Ratio 0.3 (1.0-2.7) L POC Whole Blood Glucose 103 MG/DL (74-106) Plan Problems: (1) Dehydration (2) Acidosis (3) Depression (4) Pleural effusion (5) Respiratory failure (6) Schizophrenia (7) Hypoxia (8) UTI (urinary tract infection) (9) Pneumonia (10) NSTEMI (non-ST elevated myocardial infarction) (11) Tracheostomy in place (12) Feeding by G-tube (13) JAVIER (acute kidney injury) (14) Acute encephalopathy (15) Sacral decubitus ulcer, stage IV (16) Chronic respiratory failure (17) Ascites (18) Bacteremia (19) Hypernatremia (20) Proteinuria (21) Electrolyte imbalance (22) ACS (acute coronary syndrome) (23) Aortic dissection, thoracic (24) Respiratory failure, acute and chronic (25) JAVIER (acute kidney injury) (26) Abrasion of lip, initial encounter (27) COPD with exacerbation (28) Elevated alkaline phosphatase level (29) Renal failure (ARF), acute on chronic (30) HCAP (healthcare-associated pneumonia) (31) GT CLOGGED (32) Elevated lipase (33) Pancreatitis (34) Elevated troponin (35) Hypokalemia (36) Hyponatremia (37) Anemia (38) Renal failure (39) ARF (acute renal failure) (40) Pacemaker (41) Sepsis Assessment & Plan: leukocytosis anemia on HD renal insufficiency wounds addressed pancreatitis cont diet as tolerating trend labs lf'ts okay bleeding from permacath site suture used and hemostasis obtained plan removal of fem line if stable tomorrow pt presented on admission with Tracheostomy ,GT and Multiple Pressure Injuries. Skin assessment of skin under tracheal collar without evidence of skin breakdown. Peristomal GT site excoriated.Moderate amt of dark red sanguineous exudate. Full Thickness Sacral Pressure Injury with undermined borders (L)9 cm x (W)12cm x (D)1.8cm,Undermining clockwise8-9 by 2.2cm @1o'clock,undermining clockwise 1-4 by 1.9 @ 9'oclock Scattered necrotic tissue within wound bed. Borders are loose and necrotic with marginal erythema to outer perimeter of wound. NO elevation in skin temp noted periwound. Wound is malodorous. Small amt Brown exudate noted. Resolving Pressure Injury L Ischium(L)1.5cm x (W)1.5cm. Base of wound is 80% pink epithelial with an area that is moist and pink. NO odor or exudate noted. Bilat foot-drop noted. L Heel is boggy with non-blanchable erythema(L)4cm x (W)4cm. R heel is boggy with non-Blanchable erythema(L)5cm x (W)6cm. Tx.Plan: Cleanse sacral wound with Dakin's 0.125% annie. Loosely pack with Dakin's moistened Kerlix(Attention to undermined borders). Apply Moisture Barrier Paste periwound. Cover with Optifoam drsg. Change Daily and PRN. Apply Cavilon Skin Barrier to R and L Hels. Cover each heel with Optifoam drsg. Change every 7 days and prn. Reposition at least every 2hours or as tolerated. Off-load heels with Pillow. APM/JENNIFER MAttress overlay DAILY ESTIMATED NEEDS: Needs based on Critical care, wound, renal dysfunction 56 kg abw 28-33 kcals/kg 2815-8686 total kcals W/ HD (1.5-2.0) g protein/kg 84-112 g total protein Fluid per MD NUTRITION DIAGNOSIS: * Swallowing difficulty R/T dysphagia, respiratory status as evidenced by vent dep via trach, GT Dep. * Increase kcal and pro needs r/t wound healing, renal dysfunction as evidenced by admitted w/ stage 4 sacral wound, admitted w/ JAVIER, now on HD. CURRENT TF: Nepro @ 40ml/hr x 24 hrs ENTERAL NUTRITION RECOMMENDATIONS: Nepro @ 40ml/hr x 24 hrs + Prosource 1pkt QD to provide 960ml, 1728kcal, 78g+11g prot, 698ml free water * Maintain current TF @ goal as tolerated * Add Prosource 1pkt QD to better meet increased protein needs (additional 11g prot) * Water flush per MD/ HOB over 30 degrees ADDITIONAL RECOMMENDATIONS: * Per SNF in NOV 2019: HT=63"/ Rec daily calibrated bedscale wt * Monitor for continuity of HD, next HD 02/03 * Rec phos binders- consistently elevated phos level * Wound care: add Nephrovite x 1, ZnSO4 220mg QD x 10 days Reynaldo BID via PEG (mix w/ 2-4 oz water); vit C per nephro * Monitor TF tolerance: elev lipase, slowly trending down * Add bowel regimen: no BM x 8 days, last BM on 01/25. (42) Hyponatremia Lane Saavedra Feb 12, 2020 17:39
--- NOTE | 2020-02-12 18:23 | NUR ---
NURSE NOTES: Patient seen by CN attempting to self-decannulate. Upon further inspection by CN and Primary nurse, Patient noted that she pulled out IV already at this time. Restraints put on patient for safety and prevention of pulling out medical devices. Dr. Muhammad with order of restraint. Will continue to monitor patient.
--- NOTE | 2020-02-12 19:05 | NUR ---
NURSE HAND-OFF REPORT: Important Events on Shift:Restraints started this shift Patient Status: Stable Diet: Gtube Pending Orders: NA Pending Results/Labs:NA Pending MD notification:NA Latest Vital Signs: Temperature 97.9 , Pulse 62 , B/P 116 /53 , Respiratory Rate 16 , O2 SAT 98 , Mechanical Ventilator, O2 Flow Rate . Vital Sign Comment: Stable EKG Rhythm: Sinus Rhythm Rhythm change?: N MD Notified?: N -Dr. Екатерина HATFIELD Response: Order Received& Read Back Latest Chavarria Fall Score: 60 Fall Risk: High Risk Safety Measures: Call light Within Reach, Bed Alarm Zone 1, Side Rails Side Rails x2, Bed position Low and Locked. Fall Precautions: Yellow Socks Report given to ERASMO Sen.
--- NOTE | 2020-02-12 19:15 | NUR ---
NURSE NOTES: Received report from Jigna Orellana RN. Alert and Ox1-[address] HOB elevated 45 degrees. Pt open eyes spontaneously. Respirations even and unlabored. Trach to vent with settings as ordered. Saturating 97% No signs of respiratory distress or SOB noted. Norman draining well of raul urine. 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 Bed in lowest position, call light within reach. Bed alarm engaged. Continue to POC
[2020-02-12 20:00] VITALS: BP 120/51
[2020-02-12] MEDS: Miralax 17gm pkt GT SCH (21:35)
[2020-02-12] MEDS: Epoetin Alfa-EPBX(ESRD on dialysis)10,000 unit/ml vial SUBQ SCH (21:35)
[2020-02-12] MEDS: Dyna-Hex 2% Top Sol 2oz TOPIC SCH (21:39)
[2020-02-13] VITALS: BP 138/66
[2020-02-13] MEDS: HydrALAZINE 25mg tab GT SCH ×5 (00:53→23:46)
[2020-02-13] MEDS: Metoclopramide 10mg/2ml Inj IVP SCH ×5 (00:53→23:48)
[2020-02-13 04:00] VITALS: BP 140/65
--- NOTE | 2020-02-13 04:00 | NUR ---
NURSE NOTES: No distress noted. Respirations even and unlabored. SR on monitor worker. Continue to tolerate GT feeding well of nepro at 35 cc/hr. HOB elevated. BED IN lowest position, locked, side rails X2 up, bed alarm engaged. call light within reach. Will continue POC.
[2020-02-13 05:01] LABS: HEMATOCRIT 21.9 % (37.0-47.0); MEAN CORPUSCULAR VOLUME 88 FL (80-99); PLATELET COUNT 256 K/UL (150-450); RED BLOOD COUNT 2.48 M/UL (4.20-5.40); RED CELL DISTRIBUTION WIDTH 14.6 % (11.6-14.8); WHITE BLOOD COUNT 9.2 K/UL (4.8-10.8)
[2020-02-13 05:19] LABS: HEMOGLOBIN 6.8 G/DL (12.0-16.0)
[2020-02-13 05:30] LABS: ALANINE AMINOTRANSFERASE < 6 U/L (12-78); ALBUMIN 1.7 G/DL (3.4-5.0); ALBUMIN/GLOBULIN RATIO 0.4 (1.0-2.7); ALKALINE PHOSPHATASE 139 U/L (46-116); ANION GAP 6 mmol/L (5-15); ASPARTATE AMINO TRANSFERASE 16 U/L (15-37); BILIRUBIN,TOTAL 0.4 MG/DL (0.2-1.0); BLOOD UREA NITROGEN 72 mg/dL (7-18); CALCIUM 8.6 MG/DL (8.5-10.1); CARBON DIOXIDE 30 MMOL/L (21-32); CHLORIDE 96 MMOL/L (98-107); CREATININE 3.7 MG/DL (0.55-1.30); POTASSIUM 3.4 MMOL/L (3.5-5.1); SODIUM 132 MMOL/L (136-145)
[2020-02-13 05:36] LABS: PHOSPHORUS 2.9 MG/DL (2.5-4.9)
--- NOTE | 2020-02-13 06:29 | Hematology/Onc Progress Note ---
Assessment/Plan Assessment/Plan IM note Covering for Dr. Dong Assessment and Recs # Leukocytosis, now with pna v other process --> Cxr: : Large left pleural effusion, Bilateral interstitial and airspace infiltrates versus edema --> wbc 16-->26->30-->10->8 --> ABX zosyn-->angelo/vanc-->angelo/tobra->off --> ID recs are noted --> smear has been reviewed # Anemia of chronic disease due to underlying chronic medical issues, multifactorial --> Anemia workup has been reviewed, cw acd --> No evidence of hemolysis is noted, peripheral smear has been reviewed. --> Hgb goal >7. Transfuse prn. --> Epogen required, to continue --> Medications have been reviewed --> low threshold for gi evaluation in case has occult + --> hgb 7.1-->7.8-->>>5.9-->7.3-->7-->7.2-->7.9-->8.6-->8.2-->8.5-->7->8.5->6.8 --> 1 unit prbc10/17, 2 units 01/15. 02/06, 02/12 --> gi eval as needed # Coagulopathy with inr 1.5 --> consider vit k/ffp as needed preprocedure --> labs noted # JAVIER initially >2 --> on ivfs --> per renal # Elevated d-dimer --> venous duplex ordered-->reviewed, is neg --> in prior neg # Dysphagia s/p peg --> as per gi # Thoracic aortic dissection --> s/p repair early 2017 # Chronic Resp failure -> s/p trach/vent # Psychiatric history on ativan/haldol # [place] resident # Dvt ppx --> scds The timing of this note does not necessarily reflect the time of the patient was seen. Greatly appreciate consultation. Subjective HEENT: Denies: no symptoms, eye pain, blurred vision, tearing, double vision, ear pain, ear discharge, nose pain, nose congestion, throat pain, throat sw elling, mouth pain, mouth swelling, other Allergies: Coded Allergies: No Known Allergies (Unverified , 10/10/17) All Systems: reviewed and negative except above Subjective 01/16 left femoral arden in place, on vent, icu, hgb better 01/18 labs are noted, wbc 30, hgb 7, may require prbc today 01/27 is off amio, on epoogen, hgb reviewed, 7.2, transfuse if unstable 01/28 pain meds given, some foaming around mouth, no bleeding 01/29 hd was done yesterday, no bleedig, cbc pending, asa given 01/30 labs are noted, no bleeding, labs reviewed, pending meds 02/01 labs are noted, no bleeding, meds reviewed, no f/c, trach/vent 02/02 labs noted, no night sweats, t/v, labs ordered for am 02/03 labs reviewed, meds noted, no bleeding, hgb 7.9 02/04 meds noted, no bleeding, labs reviewed, hgb 8 02/05 labs are pending, some secretions are noted, no bleeding 02/[address] still with bleed dw Rn, will place seal/further pressure 02/08 labs reviewed, grimacing, meds noted, vitals noted, seen by cards 02/09 on vent, meds reviewed, hd as per renal, labs pending 02/10 vent, comfortable, no bleeding or chills, hgb stable 02/11 nv, on vent, hgb 8.5, no new events, stable, roman Rn 02/12 nv, trach to vent, hgb 6.8 to get 1 unit prbc Objective Objective Current Medications Medications (Trade) Dose Ordered Sig/Penny Route PRN Reason Start Time Stop Time Status Last Admin Dose Admin Acetaminophen (Tylenol) 500 mg Q6H PRN GT FEVER 01/21/20 20:45 02/20/20 20:44 02/12/20 00:42 Acetaminophen (Tylenol) 650 mg Q6H PRN GT For Pain 02/09/20 17:15 03/10/20 17:14 02/09/20 17:39 Acetaminophen/ Hydrocodone Bitart ([place] 5/325) 1 tab Q6H PRN ORAL For Pain 02/07/20 11:00 02/14/20 10:59 02/12/20 21:37 Amantadine HCl (Symmetrel) 100 mg TWICE A DAY GT 01/31/20 18:00 03/01/20 17:59 02/12/20 17:56 Amlodipine Besylate (Norvasc) 5 mg BID GT 01/22/20 18:00 02/20/20 15:44 02/12/20 17:56 Aspirin (ASA) 81 mg DAILY GT 01/20/20 09:00 03/05/20 08:59 02/12/20 09:05 Atorvastatin Calcium (Lipitor) 10 mg BEDTIME GT 01/17/20 21:00 04/16/20 20:59 02/12/20 21:36 Chlorhexidine Gluconate (Ling-Hex 2%) 1 applic DAILY@1999 TOPIC 01/17/20 20:00 04/16/20 19:59 02/12/20 21:39 Dextrose (Dextrose 50%) 25 ml Q30M PRN IV Hypoglycemia 01/15/20 22:15 04/14/20 22:14 Dextrose (Dextrose 50%) 50 ml Q30M PRN IV Hypoglycemia 01/15/20 22:15 04/14/20 22:14 01/22/20 17:54 Docusate Sodium (Colace) 200 mg BIDPRN PRN GT Constipation 01/31/20 07:45 03/01/20 07:44 02/04/20 11:21 Epoetin Gelacio (Epoetin Gelacio(ESRD on dialysis)) 10,000 unit MON-MON-MON SUBQ 01/27/20 21:00 04/26/20 20:59 02/12/20 21:35 Hydralazine HCl (Apresoline) 25 mg Q6HR GT 01/26/20 18:15 04/25/20 18:14 02/13/20 00:53 Isosorbide Dinitrate (Isordil) 20 mg TID GT 01/25/20 09:00 02/19/20 08:59 02/12/20 17:56 Lactulose (Cephulac) 20 gm THREE TIMES A DAY GT 02/04/20 13:00 03/05/20 12:59 02/12/20 17:56 Lansoprazole (Prevacid) 30 mg BID GT 01/19/20 18:00 02/18/20 17:59 02/12/20 17:56 Metoclopramide HCl (Reglan) 5 mg Q6HR IVP 02/05/20 07:00 03/06/20 06:59 02/13/20 00:53 Metoprolol Tartrate (Lopressor) 25 mg Q12HR ORAL 01/27/20 21:00 04/22/20 20:59 02/12/20 21:35 Polyethylene Glycol (Miralax) 17 gm BEDTIME GT 02/04/20 21:00 03/05/20 20:59 02/12/20 21:35 Sodium Hypochlorite (Dakin's Quarter Strength) 1 applic DAILY TOPIC 01/30/20 09:00 02/29/20 08:59 02/12/20 09:05 Zinc Oxide (Zinc Oxide) 1 applic TIDPRN PRN TOPIC diogenes GT 01/16/20 13:15 04/15/20 13:14 01/16/20 14:55 Last 24 Hour Vital Signs Date Time Temp Pulse Resp B/P (MAP) Pulse Ox O2 Delivery O2 Flow Rate FiO2 02/13/20 04:00 Mechanical Ventilator Mechanical Ventilator 02/13/20 04:00 40 02/13/20 04:00 61 02/13/20 04:00 98.4 65 16 140/65 (90) 99 02/13/20 01:30 65 15 40 02/13/20 00:53 120/51 02/13/20 00:00 68 02/13/20 00:00 40 02/13/20 00:00 98.8 68 15 138/66 (90) 97 02/13/20 00:00 Mechanical Ventilator Mechanical Ventilator 02/12/20 21:35 70 120/51 02/12/20 20:00 99.5 70 15 120/51 (74) 97 02/12/20 19:50 40 02/12/20 19:49 73 02/12/20 19:48 Mechanical Ventilator Mechanical Ventilator 02/12/20 19:30 78 24 40 02/12/20 17:56 116/53 02/12/20 17:56 116/53 02/12/20 17:56 62 116/53 02/12/20 16:00 40 02/12/20 16:00 97.9 68 16 116/53 (74) 98 02/12/20 16:00 62 02/12/20 16:00 Mechanical Ventilator Mechanical Ventilator 02/12/20 15:55 64 16 40 02/12/20 12:29 124/59 02/12/20 12:28 124/59 02/12/20 12:00 Mechanical Ventilator Mechanical Ventilator 02/12/20 12:00 60 02/12/20 12:00 40 02/12/20 12:00 98.1 62 16 124/59 (80) 99 02/12/20 10:55 60 17 40 02/12/20 09:05 68 132/70 02/12/20 09:05 132/70 02/12/20 09:05 68 132/70 02/12/20 08:00 Mechanical Ventilator Mechanical Ventilator 02/12/20 08:00 40 02/12/20 08:00 97.6 68 19 132/70 (90) 100 02/12/20 07:46 62 02/12/20 07:30 63 31 40 02/12/20 05:13 127/67 02/12/20 04:00 66 02/12/20 04:00 Mechanical Ventilator Mechanical Ventilator 02/12/20 04:00 97.9 65 19 129/62 (84) 100 02/12/20 04:00 40 02/12/20 03:10 74 24 40 02/12/20 00:53 Mechanical Ventilator Mechanical Ventilator 02/12/20 00:00 40 02/12/20 00:00 98.0 64 18 142/65 (90) 97 02/12/20 00:00 69 02/11/20 23:42 142/65 02/11/20 23:30 72 22 40 02/11/20 20:07 76 138/66 02/11/20 20:00 75 02/11/20 20:00 Mechanical Ventilator Mechanical Ventilator 02/11/20 20:00 98.8 76 23 138/66 (90) 97 02/11/20 20:00 40 02/11/20 19:20 70 26 40 02/11/20 17:49 132/61 02/11/20 17:16 129/56 02/11/20 17:16 67 129/56 02/11/20 16:00 67 02/11/20 16:00 98.6 66 20 129/56 (80) 99 02/11/20 16:00 40 02/11/20 16:00 Mechanical Ventilator Mechanical Ventilator 02/11/20 15:19 67 22 40 02/11/20 13:13 129/53 02/11/20 12:00 64 02/11/20 12:00 Mechanical Ventilator Mechanical Ventilator 02/11/20 12:00 97.3 67 20 135/65 (88) 97 02/11/20 12:00 40 02/11/20 11:42 124/63 02/11/20 11:14 64 19 40 02/11/20 08:50 63 119/56 02/11/20 08:12 63 135/62 02/11/20 08:11 135/62 02/11/20 08:00 Mechanical Ventilator Mechanical Ventilator 02/11/20 08:00 61 02/11/20 08:00 40 02/11/20 07:56 98.1 63 20 135/62 (86) 97 02/11/20 07:12 63 18 40 Intake and Output 02/12/20 02/13/20 19:00 07:00 Intake Total 720 ml 415 ml Output Total 600 ml Balance 720 ml -185 ml Free Water 300 ml 100 ml Tube Feeding 420 ml 315 ml Output Urine Total 600 ml Labs Test 02/10/20 12:28 02/10/20 17:22 02/11/20 03:25 02/11/20 14:53 POC Whole Blood Glucose 84 MG/DL (74-106) 90 MG/DL (74-106) 113 MG/DL (74-106) White Blood Count 11.8 K/UL (4.8-10.8) Red Blood Count 3.04 M/UL (4.20-5.40) Hemoglobin 8.5 G/DL (12.0-16.0) Hematocrit 25.7 % (37.0-47.0) Mean Corpuscular Volume 85 FL (80-99) Mean Corpuscular Hemoglobin 27.9 PG (27.0-31.0) Mean Corpuscular Hemoglobin Concent 33.0 G/DL (32.0-36.0) Red Cell Distribution Width 15.5 % (11.6-14.8) Platelet Count 352 K/UL (150-450) Mean Platelet Volume 5.3 FL (6.5-10.1) Neutrophils (%) (Auto) 78.4 % (45.0-75.0) Lymphocytes (%) (Auto) 14.9 % (20.0-45.0) Monocytes (%) (Auto) 4.0 % (1.0-10.0) Eosinophils (%) (Auto) 1.9 % (0.0-3.0) Basophils (%) (Auto) 0.9 % (0.0-2.0) Sodium Level 132 MMOL/L (136-145) Potassium Level 3.0 MMOL/L (3.5-5.1) Chloride Level 94 MMOL/L (98-107) Carbon Dioxide Level 29 MMOL/L (21-32) Anion Gap 9 mmol/L (5-15) Blood Urea Nitrogen 59 mg/dL (7-18) Creatinine 3.4 MG/DL (0.55-1.30) Estimat Glomerular Filtration Rate 14.5 mL/min (>60) Glucose Level 95 MG/DL (74-106) Calcium Level 8.8 MG/DL (8.5-10.1) Phosphorus Level 2.7 MG/DL (2.5-4.9) Magnesium Level 2.8 MG/DL (1.8-2.4) Total Bilirubin 0.4 MG/DL (0.2-1.0) Aspartate Amino Transf (AST/SGOT) 22 U/L (15-37) Alanine Aminotransferase (ALT/SGPT) 7 U/L (12-78) Alkaline Phosphatase 172 U/L (46-116) Total Protein 6.9 G/DL (6.4-8.2) Albumin 1.8 G/DL (3.4-5.0) Globulin 5.1 g/dL Albumin/Globulin Ratio 0.4 (1.0-2.7) Test 02/11/20 17:37 02/12/20 04:24 02/12/20 05:23 02/13/20 02:50 POC Whole Blood Glucose 106 MG/DL (74-106) 103 MG/DL (74-106) White Blood Count 10.4 K/UL (4.8-10.8) 9.2 K/UL (4.8-10.8) Red Blood Count 2.89 M/UL (4.20-5.40) 2.48 M/UL (4.20-5.40) Hemoglobin 8.1 G/DL (12.0-16.0) 6.8 G/DL (12.0-16.0) Hematocrit 24.1 % (37.0-47.0) 21.9 % (37.0-47.0) Mean Corpuscular Volume 83 FL (80-99) 88 FL (80-99) Mean Corpuscular Hemoglobin 27.9 PG (27.0-31.0) 27.4 PG (27.0-31.0) Mean Corpuscular Hemoglobin Concent 33.5 G/DL (32.0-36.0) 31.1 G/DL (32.0-36.0) Red Cell Distribution Width 14.6 % (11.6-14.8) 14.6 % (11.6-14.8) Platelet Count 294 K/UL (150-450) 256 K/UL (150-450) Mean Platelet Volume 5.4 FL (6.5-10.1) 5.4 FL (6.5-10.1) Neutrophils (%) (Auto) 80.9 % (45.0-75.0) % (45.0-75.0) Lymphocytes (%) (Auto) 14.3 % (20.0-45.0) % (20.0-45.0) Monocytes (%) (Auto) 4.1 % (1.0-10.0) % (1.0-10.0) Eosinophils (%) (Auto) 0.0 % (0.0-3.0) % (0.0-3.0) Basophils (%) (Auto) 0.7 % (0.0-2.0) % (0.0-2.0) Sodium Level 132 MMOL/L (136-145) 132 MMOL/L (136-145) Potassium Level 3.1 MMOL/L (3.5-5.1) 3.4 MMOL/L (3.5-5.1) Chloride Level 93 MMOL/L (98-107) 96 MMOL/L (98-107) Carbon Dioxide Level 31 MMOL/L (21-32) 30 MMOL/L (21-32) Anion Gap 8 mmol/L (5-15) 6 mmol/L (5-15) Blood Urea Nitrogen 67 mg/dL (7-18) 72 mg/dL (7-18) Creatinine 3.6 MG/DL (0.55-1.30) 3.7 MG/DL (0.55-1.30) Estimat Glomerular Filtration Rate 13.6 mL/min (>60) 13.1 mL/min (>60) Glucose Level 91 MG/DL (74-106) 84 MG/DL (74-106) Uric Acid 4.4 MG/DL (2.6-7.2) Calcium Level 8.8 MG/DL (8.5-10.1) 8.6 MG/DL (8.5-10.1) Phosphorus Level 3.0 MG/DL (2.5-4.9) 2.9 MG/DL (2.5-4.9) Magnesium Level 3.3 MG/DL (1.8-2.4) 3.4 MG/DL (1.8-2.4) Total Bilirubin 0.4 MG/DL (0.2-1.0) 0.4 MG/DL (0.2-1.0) Aspartate Amino Transf (AST/SGOT) 18 U/L (15-37) 16 U/L (15-37) Alanine Aminotransferase (ALT/SGPT) 7 U/L (12-78) < 6 U/L (12-78) Alkaline Phosphatase 167 U/L (46-116) 139 U/L (46-116) Total Protein 7.0 G/DL (6.4-8.2) 6.4 G/DL (6.4-8.2) Albumin 1.8 G/DL (3.4-5.0) 1.7 G/DL (3.4-5.0) Globulin 5.2 g/dL 4.7 g/dL Albumin/Globulin Ratio 0.3 (1.0-2.7) 0.4 (1.0-2.7) Test 02/13/20 05:29 POC Whole Blood Glucose 74 MG/DL (74-106) Height (Feet): 5 Height (Inches): 6.00 Weight (Pounds): 150 Objective Physical Exam: Vitals: reviewed General: NAD HEENT: nc, at Neck: supple ++trach/vent Chest: clear breath sounds bilaterally Cardiovascular: RRR, no s3, s4 Abdomen: soft, nontender, nd +gtube Extremities: no cce, normal range of motion Neuro: alert Evan Muhammad MD Feb 13, 2020 06:29
--- NOTE | 2020-02-13 07:05 | NUR ---
NURSE NOTES: Received patient report from ERASMO Sen. Patient is AO x2 in bed, asleep. Patient with Hgb 6.1 with new order of 1 unit PRBC endorsed by previous shift. Patient with vent ac 16 vt 500 Fio2 65 PEEP 5. Patient with R hand 22G Iv site, patent and intact. Breathing is even and unlabored with no signs of respiratory distress. No pain or discomfort noted at this time. Bed in lowest position, locked with side rails x2 up. Soft wrist restraints in place. Call light within reach.
[2020-02-13 08:00] VITALS: BP 128/68
--- NOTE | 2020-02-13 08:47 | Infectious Diseases Prog Note ---
Assessment/Plan 49yo F with: AF Sepsis Leukocytosis Hypoxia on vent Pneumonia c/b L pleural effusion (recurrent, prior determined to be transudative) - s/p thora 01/21, 1050cc removed Volume overload, BNP >35,0000, likely 2/2 progressive CKD --> ESRD ?Pancreatitis, Lipase >2000 Acute anemia to 5s CONS bacteremia, ?contaminant Aflutter w/ RVR 01/13 BCx 2/2 +S. epi COVID PCR neg Flu neg CXR: Large left pleural effusion. Bilateral interstitial and airspace infiltrates versus edema MRSA nares neg 01/16 BCx NTD 01/17 BCx /2 +Staph auricularis (skin colonizer) 01/18 Resp cx +MDR CRE PsA (S-gent, I-colistin, R-polyB) 01/18 C.dif neg 01/18 CXR: Similar opacification of the left hemithorax likely representing combination of pleural effusion with atelectasis versus pneumonia/edema. Decreased but persistent hazy opacity throughout the right lung may represent edema versus infectious/inflammatory process. 01/20 BCx NTD 01/21 L thora 1050 cc removed, cx NTD 01/25 Wound cx from Gtube site +CRE Kleb pna (arnett-R) and MDR PsA (colonizers) 01/26 CT A/P: Limited exam, due to severe diffuse anasarca. Ascites. Bilateral pleural effusions. Basilar pulmonary atelectatic changes and consolidation. Gastrostomy. Atrophic left kidney with a nephroureteral stents again demonstrated. Possible retrococcygeal decubitus changes. Correlate with clinical findings, consider MRI if there is concern for sacral osteomyelitis. Right hip intertrochanteric fracture, also previously demonstrated. Left femoral dialysis catheter. Nonspecific right lobe liver lesion is unchanged, not well- demonstrated. ctasia bordering on aneurysmal dilatation and possible chronic dissection of the distal thoracic aorta, also previously described. JAVIER on CKD On previous admission Sep-Oct 2019 required HD for short period Going to start HD this admission again R/o COVID / COVID PCR neg 12/29 neg at [facility] per report H/o UTI 10/15 u/a wbc 30-40, nit neg, leuk +3; ucx ESBL P. mirablis, ESBL M. morganii //20 u/a wbc tnct, nit neg, leuk +3; ucx >100k MDR P. stuarti (S Ceftriaxone, Meropenem) 10/07 u/a wbc tnct, nit neg, leuk ; ucx >100k VRE 10/15/19 u/a wbc tnct; ucx >100k ESBL P. stuarti (S ertapenem, aztreonam) H/o transudative pleural effusion 11/28 Sp Thora (w: 169, PMN: 2%, L: 49% , LDH: 57, prot 2.5); cx Neg H/o PNA 10/15/19 Resp cx ESBL P. mirabilis, MDR P.a. (S only to Gent) 09/22 Resp cx + MDR PsA (S-gent; I-colistin; R-levofloxacin, Zosyn, angelo) 09/16/19 Sp cx ESBL P. mirablis H/o PPM site (pocket) infection and pocket abscess 2ry to S. epi-11/2018, sp >6weeks IV vancomycin 11/27 SP ABBIE: no evidence for vegetation on any of the valves 11/26/18 SP PPM removal: OR findings:The fibrous capsule enclosing the generator was then opened and there was a [id number] amount of yellowish fluid drainage. The generator was then removed.Atrial and ventricular leads were detached. The necrotic tissue of the pocket was then removed and the pocket was flushed with an antibiotic solution. Capsule, wound tissue and lead tip cx: Neg 2d echo: no vegetation seen US chest: 4.6 x 3.4 x 0.9 cm hypoechoic/anechoic area overlying left chest pacemaker power pack. This could represent either a discrete fluid collection or a focal area of very edematous tissue. Infected fluid pocket also possible. 11/18 Bcx 3/4 S. epi; 11/20 Bcx neg; 11/24 Bcx Neg; 11/27 Bcx Neg CAD s/p CABG GERD/gastritis Afib HTN Dysphagia sp GT Aortic dissection s/p repair 2017 S/p PPM Parkinson's Disease Schizophrenia Anxiety COPD Chronic resp failure s/p trach Hx of tracheal bleeding [place] resident ([facility]) VRE and MRSA colonized Plan: Cont to monitor off abx OK to d/c from ID standpoint 01/31 SP angelo/inh tobra #10 for pna 01/23 SP vanco IV #10 given CONS/GPC bacteremia 01/16 SP Zosyn #2 12 SP dex 10mg in ED 12/10 SP IV Gentamycin #10 12/07 SP Meropenem #10 12/01 SP IV Vancomycin #5 11/28 Sp Cefepime #2 and IV Gentamycin x1 Monitor CBC/CMP Monitor temp curve, hemodynamics Monitor resp status D/w RN Thank you for this consult. [facility] will continue to follow. Subjective Allergies: Coded Allergies: No Known Allergies (Unverified , 10/10/17) AF NAD on vent 40% PEEP 5 WBC wnl in 9s Hg down to 6s Objective Last 24 Hour Vital Signs Date Time Temp Pulse Resp B/P (MAP) Pulse Ox O2 Delivery O2 Flow Rate FiO2 02/13/20 08:00 97.1 68 16 128/68 (88) 98 02/13/20 06:35 61 14 40 02/13/20 06:31 140/65 02/13/20 04:00 Mechanical Ventilator Mechanical Ventilator 02/13/20 04:00 40 02/13/20 04:00 61 02/13/20 04:00 98.4 65 16 140/65 (90) 99 02/13/20 01:30 65 15 40 02/13/20 00:53 120/51 02/13/20 00:00 68 02/13/20 00:00 40 02/13/20 00:00 98.8 68 15 138/66 (90) 97 02/13/20 00:00 Mechanical Ventilator Mechanical Ventilator 02/12/20 21:35 70 120/51 02/12/20 20:00 99.5 70 15 120/51 (74) 97 02/12/20 19:50 40 02/12/20 19:49 73 02/12/20 19:48 Mechanical Ventilator Mechanical Ventilator 02/12/20 19:30 78 24 40 02/12/20 17:56 116/53 02/12/20 17:56 116/53 02/12/20 17:56 62 116/53 02/12/20 16:00 40 02/12/20 16:00 97.9 68 16 116/53 (74) 98 02/12/20 16:00 62 02/12/20 16:00 Mechanical Ventilator Mechanical Ventilator 02/12/20 15:55 64 16 40 02/12/20 12:29 124/59 02/12/20 12:28 124/59 02/12/20 12:00 Mechanical Ventilator Mechanical Ventilator 02/12/20 12:00 60 02/12/20 12:00 40 02/12/20 12:00 98.1 62 16 124/59 (80) 99 02/12/20 10:55 60 17 40 02/12/20 09:05 68 132/70 02/12/20 09:05 132/70 02/12/20 09:05 68 132/70 Height (Feet): 5 Height (Inches): 6.00 Weight (Pounds): 150 Gen: NAD HEENT: NCAT, +trach CV: RRR Pulm: CTAB on vent Abd: Non-distended, +PEG with skin intact wo erythema or discharge, but brownish discharge on dressing Ext: No c/c/e Skin: No visible rashes Neuro: Awake, minimally interactive Lines: L fem HD cath Laboratory Tests Test 02/13/20 02:50 02/13/20 05:29 White Blood Count 9.2 K/UL (4.8-10.8) Red Blood Count 2.48 M/UL (4.20-5.40) L Hemoglobin 6.8 G/DL (12.0-16.0) *L Hematocrit 21.9 % (37.0-47.0) L Mean Corpuscular Volume 88 FL (80-99) Mean Corpuscular Hemoglobin 27.4 PG (27.0-31.0) Mean Corpuscular Hemoglobin Concent 31.1 G/DL (32.0-36.0) L Red Cell Distribution Width 14.6 % (11.6-14.8) Platelet Count 256 K/UL (150-450) Mean Platelet Volume 5.4 FL (6.5-10.1) L Neutrophils (%) (Auto) % (45.0-75.0) Lymphocytes (%) (Auto) % (20.0-45.0) Monocytes (%) (Auto) % (1.0-10.0) Eosinophils (%) (Auto) % (0.0-3.0) Basophils (%) (Auto) % (0.0-2.0) Neutrophils % (Manual) Pending Lymphocytes % (Manual) Pending Platelet Estimate Pending Platelet Morphology Pending Sodium Level 132 MMOL/L (136-145) L Potassium Level 3.4 MMOL/L (3.5-5.1) L Chloride Level 96 MMOL/L (98-107) L Carbon Dioxide Level 30 MMOL/L (21-32) Anion Gap 6 mmol/L (5-15) Blood Urea Nitrogen 72 mg/dL (7-18) H Creatinine 3.7 MG/DL (0.55-1.30) H Estimat Glomerular Filtration Rate 13.1 mL/min (>60) Glucose Level 84 MG/DL (74-106) Calcium Level 8.6 MG/DL (8.5-10.1) Phosphorus Level 2.9 MG/DL (2.5-4.9) Magnesium Level 3.4 MG/DL (1.8-2.4) H Total Bilirubin 0.4 MG/DL (0.2-1.0) Aspartate Amino Transf (AST/SGOT) 16 U/L (15-37) Alanine Aminotransferase (ALT/SGPT) < 6 U/L (12-78) L Alkaline Phosphatase 139 U/L (46-116) H Total Protein 6.4 G/DL (6.4-8.2) Albumin 1.7 G/DL (3.4-5.0) L Globulin 4.7 g/dL Albumin/Globulin Ratio 0.4 (1.0-2.7) L POC Whole Blood Glucose 74 MG/DL (74-106) Current Medications Medications (Trade) Dose Ordered Sig/Penny Route PRN Reason Start Time Stop Time Status Last Admin Dose Admin Acetaminophen (Tylenol) 500 mg Q6H PRN GT FEVER 01/21/20 20:45 02/20/20 20:44 02/12/20 00:42 Acetaminophen (Tylenol) 650 mg Q6H PRN GT For Pain 02/09/20 17:15 03/10/20 17:14 02/09/20 17:39 Acetaminophen/ Hydrocodone Bitart ([place] 5/325) 1 tab Q6H PRN ORAL For Pain 02/07/20 11:00 02/14/20 10:59 02/12/20 21:37 Amantadine HCl (Symmetrel) 100 mg TWICE A DAY GT 01/31/20 18:00 03/01/20 17:59 02/12/20 17:56 Amlodipine Besylate (Norvasc) 5 mg BID GT 01/22/20 18:00 02/20/20 15:44 02/12/20 17:56 Aspirin (ASA) 81 mg DAILY GT 01/20/20 09:00 03/05/20 08:59 02/12/20 09:05 Atorvastatin Calcium (Lipitor) 10 mg BEDTIME GT 01/17/20 21:00 04/16/20 20:59 02/12/20 21:36 Chlorhexidine Gluconate (Ling-Hex 2%) 1 applic DAILY@1999 TOPIC 01/17/20 20:00 04/16/20 19:59 02/12/20 21:39 Dextrose (Dextrose 50%) 25 ml Q30M PRN IV Hypoglycemia 01/15/20 22:15 04/14/20 22:14 Dextrose (Dextrose 50%) 50 ml Q30M PRN IV Hypoglycemia 01/15/20 22:15 04/14/20 22:14 01/22/20 17:54 Docusate Sodium (Colace) 200 mg BIDPRN PRN GT Constipation 01/31/20 07:45 03/01/20 07:44 02/04/20 11:21 Epoetin Gelacio (Epoetin Gelacio(ESRD on dialysis)) 10,000 unit MON-MON-MON SUBQ 01/27/20 21:00 04/26/20 20:59 02/12/20 21:35 Hydralazine HCl (Apresoline) 25 mg Q6HR GT 01/26/20 18:15 04/25/20 18:14 02/13/20 06:31 Isosorbide Dinitrate (Isordil) 20 mg TID GT 01/25/20 09:00 02/19/20 08:59 02/12/20 17:56 Lactulose (Cephulac) 20 gm THREE TIMES A DAY GT 02/04/20 13:00 03/05/20 12:59 02/12/20 17:56 Lansoprazole (Prevacid) 30 mg BID GT 01/19/20 18:00 02/18/20 17:59 02/12/20 17:56 Metoclopramide HCl (Reglan) 5 mg Q6HR IVP 02/05/20 07:00 03/06/20 06:59 02/13/20 06:32 Metoprolol Tartrate (Lopressor) 25 mg Q12HR ORAL 01/27/20 21:00 04/22/20 20:59 02/12/20 21:35 Polyethylene Glycol (Miralax) 17 gm BEDTIME GT 02/04/20 21:00 03/05/20 20:59 02/12/20 21:35 Sodium Hypochlorite (Dakin's Quarter Strength) 1 applic DAILY TOPIC 01/30/20 09:00 02/29/20 08:59 02/12/20 09:05 Zinc Oxide (Zinc Oxide) 1 applic TIDPRN PRN TOPIC diogenes GT 01/16/20 13:15 04/15/20 13:14 01/16/20 14:55 Ro Pack M.D. Feb 13, 2020 08:47
[2020-02-13] MEDS: Amantadine 100mg cap GT SCH ×2 (09:04→17:15)
[2020-02-13] MEDS: Lactulose 20gm/30ml UDC GT SCH ×3 (09:04→17:15)
[2020-02-13] MEDS: Dakin's 0.125% Soln (Quarter Strength) 16oz TOPIC SCH (09:04)
[2020-02-13] MEDS: Aspirin Baby 81mg GT SCH (09:05)
--- NOTE | 2020-02-13 09:55 | General Progress Note ---
Subjective ROS Limited/Unobtainable: No Allergies: Coded Allergies: No Known Allergies (Unverified , 10/10/17) Objective Last 24 Hour Vital Signs Date Time Temp Pulse Resp B/P (MAP) Pulse Ox O2 Delivery O2 Flow Rate FiO2 02/13/20 09:05 68 128/68 02/13/20 09:05 68 128/68 02/13/20 09:04 128/68 02/13/20 08:00 Mechanical Ventilator Mechanical Ventilator 02/13/20 08:00 97.1 68 16 128/68 (88) 98 02/13/20 08:00 63 02/13/20 08:00 40 02/13/20 06:35 61 14 40 02/13/20 06:31 140/65 02/13/20 04:00 Mechanical Ventilator Mechanical Ventilator 02/13/20 04:00 40 02/13/20 04:00 61 02/13/20 04:00 98.4 65 16 140/65 (90) 99 02/13/20 01:30 65 15 40 02/13/20 00:53 120/51 02/13/20 00:00 68 02/13/20 00:00 40 02/13/20 00:00 98.8 68 15 138/66 (90) 97 02/13/20 00:00 Mechanical Ventilator Mechanical Ventilator 02/12/20 21:35 70 120/51 02/12/20 20:00 99.5 70 15 120/51 (74) 97 02/12/20 19:50 40 02/12/20 19:49 73 02/12/20 19:48 Mechanical Ventilator Mechanical Ventilator 02/12/20 19:30 78 24 40 02/12/20 17:56 116/53 02/12/20 17:56 116/53 02/12/20 17:56 62 116/53 02/12/20 16:00 40 02/12/20 16:00 97.9 68 16 116/53 (74) 98 02/12/20 16:00 62 02/12/20 16:00 Mechanical Ventilator Mechanical Ventilator 02/12/20 15:55 64 16 40 02/12/20 12:29 124/59 02/12/20 12:28 124/59 02/12/20 12:00 Mechanical Ventilator Mechanical Ventilator 02/12/20 12:00 60 02/12/20 12:00 40 02/12/20 12:00 98.1 62 16 124/59 (80) 99 02/12/20 10:55 60 17 40 Intake and Output 02/12/20 02/13/20 19:00 07:00 Intake Total 720 ml 450 ml Output Total 600 ml Balance 720 ml -150 ml Free Water 300 ml 100 ml Tube Feeding 420 ml 350 ml Output Urine Total 600 ml Laboratory Tests 02/13/20 02:50: White Blood Count 9.2, Red Blood Count 2.48L, Hemoglobin 6.8*L, Hematocrit 21.9L , Mean Corpuscular Volume 88, Mean Corpuscular Hemoglobin 27.4, Mean Corpuscular Hemoglobin Concent 31.1L, Red Cell Distribution Width 14.6, Platelet Count 256, Mean Platelet Volume 5.4L, Neutrophils (%) (Auto) , Lymphocytes (%) (Auto) , Monocytes (%) (Auto) , Eosinophils (%) (Auto) , Basophils (%) (Auto) , Neutrophils % (Manual) [Pending], Lymphocytes % (Manual) [Pending], Platelet Estimate [Pending], Platelet Morphology [Pending], Sodium Level 132L, Potassium Level 3.4L, Chloride Level 96L, Carbon Dioxide Level 30, Anion Gap 6, Blood Urea Nitrogen 72H, Creatinine 3.7H, Estimat Glomerular Filtration Rate 13.1, Glucose Level 84, Calcium Level 8.6, Phosphorus Level 2.9, Magnesium Level 3.4H, Total Bilirubin 0.4, Aspartate Amino Transf (AST/SGOT) 16, Alanine Aminotransferase (ALT/SGPT) < 6L, Alkaline Phosphatase 139H, Total Protein 6.4, Albumin 1.7L, Globulin 4.7, Albumin/Globulin Ratio 0.4L 02/13/20 05:29: POC Whole Blood Glucose 74 Height (Feet): 5 Height (Inches): 6.00 Weight (Pounds): 150 General Appearance: no apparent distress EENT: normal ENT inspection Neck: supple Cardiovascular: normal rate Respiratory/Chest: decreased breath sounds Abdomen: normal bowel sounds, non tender, soft Extremities: non-tender Assessment/Plan Problem List: (1) Hx of CABG ICD Codes: Z95.1 - Presence of aortocoronary bypass graft SNOMED: 647618575, 228745636 (2) History of tracheostomy ICD Codes: Z98.890 - Other specified postprocedural states SNOMED: 565380402, 506937086 (3) PEG (percutaneous endoscopic gastrostomy) status ICD Codes: Z93.1 - Gastrostomy status SNOMED: 436101136, 115725514 (4) S/P aortic dissection repair ICD Codes: Z98.890 - Other specified postprocedural states SNOMED: 755957188, 680074356 (5) Renal failure ICD Codes: N19 - Unspecified kidney failure SNOMED: 37131410, 905974684 (6) Anemia ICD Codes: D64.9 - Anemia, unspecified SNOMED: 158343631 Assessment/Plan: stable H&H repeat stool ob GTF some GT leak reglan topical Zinc oxide HD per nephrology persistent elevated lipase\ ct reviewed s/p one unit prbc cbc in Inder Mccauley MD Feb 13, 2020 09:55
[2020-02-13] MEDS: HYDROcodone/Acetamin 5/325 tab ORAL PRN (11:08)
[2020-02-13 12:00] VITALS: BP 130/68
--- NOTE | 2020-02-13 12:12 | NUR ---
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
--- NOTE | 2020-02-13 13:26 | Pulmonology Progress Note ---
Subjective ROS Limited/Unobtainable: No Interval Events: None new Constitutional: Reports: no symptoms HEENT: Repors: no symptoms Respiratory: Reports: no symptoms Cardiovascular: Reports: no symptoms Gastrointestinal/Abdominal: Reports: no symptoms Allergies: Coded Allergies: No Known Allergies (Unverified , 10/10/17) All Systems: reviewed and negative except above Objective Last 24 Hour Vital Signs Date Time Temp Pulse Resp B/P (MAP) Pulse Ox O2 Delivery O2 Flow Rate FiO2 02/13/20 13:02 70 21 40 02/13/20 12:44 130/68 02/13/20 12:44 130/68 02/13/20 12:00 64 02/13/20 12:00 98.1 60 20 130/68 (88) 99 02/13/20 12:00 40 02/13/20 12:00 Mechanical Ventilator Mechanical Ventilator 02/13/20 09:05 68 128/68 02/13/20 09:05 68 128/68 02/13/20 09:04 128/68 02/13/20 08:00 Mechanical Ventilator Mechanical Ventilator 02/13/20 08:00 97.1 68 16 128/68 (88) 98 02/13/20 08:00 63 02/13/20 08:00 40 02/13/20 06:35 61 14 40 02/13/20 06:31 140/65 02/13/20 04:00 Mechanical Ventilator Mechanical Ventilator 02/13/20 04:00 40 02/13/20 04:00 61 02/13/20 04:00 98.4 65 16 140/65 (90) 99 02/13/20 01:30 65 15 40 02/13/20 00:53 120/51 02/13/20 00:00 68 02/13/20 00:00 40 02/13/20 00:00 98.8 68 15 138/66 (90) 97 02/13/20 00:00 Mechanical Ventilator Mechanical Ventilator 02/12/20 21:35 70 120/51 02/12/20 20:00 99.5 70 15 120/51 (74) 97 02/12/20 19:50 40 02/12/20 19:49 73 02/12/20 19:48 Mechanical Ventilator Mechanical Ventilator 02/12/20 19:30 78 24 40 02/12/20 17:56 116/53 02/12/20 17:56 116/53 02/12/20 17:56 62 116/53 02/12/20 16:00 40 02/12/20 16:00 97.9 68 16 116/53 (74) 98 02/12/20 16:00 62 02/12/20 16:00 Mechanical Ventilator Mechanical Ventilator 02/12/20 15:55 64 16 40 Intake and Output 02/12/20 02/13/20 19:00 07:00 Intake Total 720 ml 450 ml Output Total 600 ml Balance 720 ml -150 ml Free Water 300 ml 100 ml Tube Feeding 420 ml 350 ml Output Urine Total 600 ml General Appearance: no acute distress HEENT: normocephalic, other - trach Respiratory: chest wall non-tender, other - coarse lung sounds Cardiovascular: normal rate, regular rhythm Abdomen: soft, non tender Genitourinary: other - [place] Extremities: other - trace edema Laboratory Tests 02/13/20 02:50: White Blood Count 9.2, Red Blood Count 2.48L, Hemoglobin 6.8*L, Hematocrit 21.9L , Mean Corpuscular Volume 88, Mean Corpuscular Hemoglobin 27.4, Mean Corpuscular Hemoglobin Concent 31.1L, Red Cell Distribution Width 14.6, Platelet Count 256, Mean Platelet Volume 5.4L, Neutrophils (%) (Auto) , Lymphocytes (%) (Auto) , Monocytes (%) (Auto) , Eosinophils (%) (Auto) , Basophils (%) (Auto) , Differential Total Cells Counted 100, Neutrophils % (Manual) 70, Lymphocytes % (Manual) 21, Monocytes % (Manual) 4, Eosinophils % (Manual) 5H, Basophils % (Manual) 0, Band Neutrophils 0, Platelet Estimate Adequate, Platelet Morphology Normal, Hypochromasia 1+, Anisocytosis 1+, Sodium Level 132L, Potassium Level 3.4L, Chloride Level 96L, Carbon Dioxide Level 30, Anion Gap 6, Blood Urea Nitrogen 72H, Creatinine 3.7H, Estimat Glomerular Filtration Rate 13.1, Glucose Level 84, Calcium Level 8.6, Phosphorus Level 2.9, Magnesium Level 3.4H, Total Bilirubin 0.4, Aspartate Amino Transf (AST/SGOT) 16, Alanine Aminotransferase (ALT/SGPT) < 6L, Alkaline Phosphatase 139H, Total Protein 6.4, Albumin 1.7L, Globulin 4.7, Albumin/Globulin Ratio 0.4L 02/13/20 05:29: POC Whole Blood Glucose 74 Current Medications Medications (Trade) Dose Ordered Sig/Penny Route PRN Reason Start Time Stop Time Status Last Admin Dose Admin Acetaminophen (Tylenol) 500 mg Q6H PRN GT FEVER 01/21/20 20:45 02/20/20 20:44 02/12/20 00:42 Acetaminophen (Tylenol) 650 mg Q6H PRN GT For Pain 02/09/20 17:15 03/10/20 17:14 02/09/20 17:39 Acetaminophen/ Hydrocodone Bitart (Mikana 5/325) 1 tab Q6H PRN ORAL For Pain 02/07/20 11:00 02/14/20 10:59 02/13/20 11:08 Amantadine HCl (Symmetrel) 100 mg TWICE A DAY GT 01/31/20 18:00 03/01/20 17:59 02/13/20 09:04 Amlodipine Besylate (Norvasc) 5 mg BID GT 01/22/20 18:00 02/20/20 15:44 02/13/20 09:05 Aspirin (ASA) 81 mg DAILY GT 01/20/20 09:00 03/05/20 08:59 02/13/20 09:05 Atorvastatin Calcium (Lipitor) 10 mg BEDTIME GT 01/17/20 21:00 04/16/20 20:59 02/12/20 21:36 Chlorhexidine Gluconate (Ling-Hex 2%) 1 applic DAILY@1999 TOPIC 01/17/20 20:00 04/16/20 19:59 02/12/20 21:39 Dextrose (Dextrose 50%) 25 ml Q30M PRN IV Hypoglycemia 01/15/20 22:15 04/14/20 22:14 Dextrose (Dextrose 50%) 50 ml Q30M PRN IV Hypoglycemia 01/15/20 22:15 04/14/20 22:14 01/22/20 17:54 Docusate Sodium (Colace) 200 mg BIDPRN PRN GT Constipation 01/31/20 07:45 03/01/20 07:44 02/04/20 11:21 Epoetin Gelacio (Epoetin Gelacio(ESRD on dialysis)) 10,000 unit MON-MON-MON SUBQ 01/27/20 21:00 04/26/20 20:59 02/12/20 21:35 Hydralazine HCl (Apresoline) 25 mg Q6HR GT 01/26/20 18:15 04/25/20 18:14 02/13/20 12:44 Isosorbide Dinitrate (Isordil) 20 mg TID GT 01/25/20 09:00 02/19/20 08:59 02/13/20 12:44 Lactulose (Cephulac) 20 gm THREE TIMES A DAY GT 02/04/20 13:00 03/05/20 12:59 02/13/20 12:44 Lansoprazole (Prevacid) 30 mg BID GT 01/19/20 18:00 02/18/20 17:59 02/13/20 09:04 Metoclopramide HCl (Reglan) 5 mg Q6HR IVP 02/05/20 07:00 03/06/20 06:59 02/13/20 12:00 Metoprolol Tartrate (Lopressor) 25 mg Q12HR ORAL 01/27/20 21:00 04/22/20 20:59 02/13/20 09:05 Polyethylene Glycol (Miralax) 17 gm BEDTIME GT 02/04/20 21:00 03/05/20 20:59 02/12/20 21:35 Sodium Hypochlorite (Dakin's Quarter Strength) 1 applic DAILY TOPIC 01/30/20 09:00 02/29/20 08:59 02/13/20 09:04 Zinc Oxide (Zinc Oxide) 1 applic TIDPRN PRN TOPIC diogenes GT 01/16/20 13:15 04/15/20 13:14 01/16/20 14:55 Assessment/Plan Assessment/Plan Assessment/Plan 1. Large left effusion. - S/p thoracentesis; CXR better - pleural fluid pathology report: negative for malignant cell 2. Chronic respiratory failure. - Continue trach care - Cont AC mode - Currently saturating at 97% 3. Sepsis; improving 4. Anemia - improving - s/p transfusion - s/p Epogen s/p HD on broad-spectrum antibiotics. Pulmonary hygiene. DVT and GI prophylaxes. Dc planning in place FiO2 increased previously to 60%; now decreased to 40%; will wean further as tolerated Elijah Stephen,Elijah Albarado 31, 2020 13:26
--- NOTE | 2020-02-13 13:52 | Nephrology Progress Note ---
Assessment/Plan Problem List: (1) ARF (acute renal failure) (2) Pacemaker (3) Sepsis (4) Hyponatremia Assessment (1) JAVIER (acute kidney injury) (2) Renal failure (ARF), acute on chronic (3) Feeding by G-tube (4) Tracheostomy in place (5) Electrolyte imbalance, hyponatremia (6) Anemia, severe (7) Respiratory failure, acute and chronic (8) Elevated lipase, pancreatitis (9) Elevated troponin I (10) Sepsis Plan February 12: Labs reviewed. Hemoglobin 6.8. Creatinine 3.7 and stable. Transfusion will defer to Dr. Radford. Continue to monitor CBC and CHEM panel. February 11: Labs reviewed. Serum creatinine 3.6. Low potassium addressed. Dialysis as needed. Will monitor renal parameters. February 10: Labs reviewed. Potassium replaced. Serum sodium 132. Check labs tomorrow. Dialysis as needed. February 09: No labs drawn today. Last dialysis February 07. Will check lab tomorrow. Hemodialysis as needed. February 08: Labs reviewed. Dialyzed yesterday. Stable from renal standpoint of view. Continue to monitor electrolytes and order dialysis as needed. February 07: Labs reviewed. Due for dialysis today. Continue per consultants. February 06: Labs reviewed. Last dialysis February 03. Will postpone today's dialysis to tomorrow. Continue per current treatment plan. February 05: Labs reviewed. Last dialysis February 03. Will order dialysis tomorrow. Waiting for tunneled catheter placement. February 04: Labs reviewed. Dialyzed yesterday. With a plan for insertion of a tunneled dialysis catheter and discontinue left groin dialysis catheter afterwards. Check labs in a.m. Discussed with Dr. Dong. February 03: Labs reviewed. Due for dialysis today. Continue per consultants. February 02: Labs reviewed. Will order dialysis tomorrow. Continue per consultants. February 01: Labs reviewed. Creatinine gradually rising. Will dialyze as needed. Continue to monitor renal parameters. January 31: Last dialysis January 29. Labs reviewed. No need for dialysis today. Continue per current management. Hemodialysis as needed. Will check renal parameters and chemistries tomorrow. January 30: Patient was dialyzed yesterday. No labs drawn today. Continue to monitor renal parameters and dialyze as needed. Continue per consultants and PMD. January 29: Patient due for dialysis today. Today's can panel reviewed. Continue to monitor renal parameters and dialysis as needed. January 28: Patient last dialyzed January 26. No labs drawn today. Will order dialysis tomorrow. Check chemistry panel tomorrow. Continue per consultants. January 27: Patient was dialyzed yesterday . Labs were reviewed. Electrolytes within normal limit. Blood pressure stable. January 26: When visited the patient earlier today the patient was on dialysis. Tolerating well. Labs reviewed. Blood pressure stable. January 25: Dialysis for tomorrow. Labs reviewed. Hemoglobin remains low. Will adjust blood pressure medication. Hydralazine added to the regimen January 24: Last dialyzed January 22. Labs reviewed. Status quo. Will dialyze as needed. Low hemoglobin noted. Transfusion per PMD decision. Epogen started. \January 23: Dialyzed yesterday. Today's labs reviewed. Continue to monitor renal parameters and arrange for dialysis as needed. Continue per PMD. January 22: Seen earlier during dialysis. Labs reviewed. Medication list reviewed. Continue current management. January 21: Labs reviewed. Medication list reviewed. Next hemodialysis tomorrow. Blood pressure medication adjusted. January 20: Dialyzed yesterday. Labs reviewed. Continue per current management. Dialysis as needed. Add Norvasc to blood pressure regimen January 19: Due for dialysis today. Labs reviewed. Continue her current management. Continue to monitor renal parameters and electrolytes. January 18: Dialyzed yesterday. Labs reviewed. Renal parameters electrolytes much improved. Dialysis again tomorrow. Continue rest. January 17: Dialyzed this morning. Labs reviewed. Renal parameters and electrolyte abnormalities improved. Discussed with RN. Continue per consultants. January 16: Dialyzed yesterday. Labs improved. Next dialysis tomorrow. Continue per consultants. January 15: Patient to have dialysis catheter. Emergency dialysis for correction of uremia and electrolyte imbalances Antibiotics Transfusion Continue to monitor renal parameters Per orders Discussed with RN Subjective ROS Limited/Unobtainable: Yes Objective Objective Last 24 Hour Vital Signs Date Time Temp Pulse Resp B/P (MAP) Pulse Ox O2 Delivery O2 Flow Rate FiO2 02/13/20 13:02 70 21 40 02/13/20 12:44 130/68 02/13/20 12:44 130/68 02/13/20 12:00 64 02/13/20 12:00 98.1 60 20 130/68 (88) 99 02/13/20 12:00 40 02/13/20 12:00 Mechanical Ventilator Mechanical Ventilator 02/13/20 09:05 68 128/68 02/13/20 09:05 68 128/68 02/13/20 09:04 128/68 02/13/20 08:00 Mechanical Ventilator Mechanical Ventilator 02/13/20 08:00 97.1 68 16 128/68 (88) 98 02/13/20 08:00 63 02/13/20 08:00 40 02/13/20 06:35 61 14 40 02/13/20 06:31 140/65 02/13/20 04:00 Mechanical Ventilator Mechanical Ventilator 02/13/20 04:00 40 02/13/20 04:00 61 02/13/20 04:00 98.4 65 16 140/65 (90) 99 02/13/20 01:30 65 15 40 02/13/20 00:53 120/51 02/13/20 00:00 68 02/13/20 00:00 40 02/13/20 00:00 98.8 68 15 138/66 (90) 97 02/13/20 00:00 Mechanical Ventilator Mechanical Ventilator 02/12/20 21:35 70 120/51 02/12/20 20:00 99.5 70 15 120/51 (74) 97 02/12/20 19:50 40 02/12/20 19:49 73 02/12/20 19:48 Mechanical Ventilator Mechanical Ventilator 02/12/20 19:30 78 24 40 02/12/20 17:56 116/53 02/12/20 17:56 116/53 02/12/20 17:56 62 116/53 02/12/20 16:00 40 02/12/20 16:00 97.9 68 16 116/53 (74) 98 02/12/20 16:00 62 02/12/20 16:00 Mechanical Ventilator Mechanical Ventilator 02/12/20 15:55 64 16 40 Intake and Output 02/12/20 02/13/20 19:00 07:00 Intake Total 720 ml 450 ml Output Total 600 ml Balance 720 ml -150 ml Free Water 300 ml 100 ml Tube Feeding 420 ml 350 ml Output Urine Total 600 ml Laboratory Tests 02/13/20 02:50: White Blood Count 9.2, Red Blood Count 2.48L, Hemoglobin 6.8*L, Hematocrit 21.9L , Mean Corpuscular Volume 88, Mean Corpuscular Hemoglobin 27.4, Mean Corpuscular Hemoglobin Concent 31.1L, Red Cell Distribution Width 14.6, Platelet Count 256, Mean Platelet Volume 5.4L, Neutrophils (%) (Auto) , Lymphocytes (%) (Auto) , Monocytes (%) (Auto) , Eosinophils (%) (Auto) , Basophils (%) (Auto) , Differential Total Cells Counted 100, Neutrophils % (Manual) 70, Lymphocytes % (Manual) 21, Monocytes % (Manual) 4, Eosinophils % (Manual) 5H, Basophils % (Manual) 0, Band Neutrophils 0, Platelet Estimate Adequate, Platelet Morphology Normal, Hypochromasia 1+, Anisocytosis 1+, Sodium Level 132L, Potassium Level 3.4L, Chloride Level 96L, Carbon Dioxide Level 30, Anion Gap 6, Blood Urea Nitrogen 72H, Creatinine 3.7H, Estimat Glomerular Filtration Rate 13.1, Glucose Level 84, Calcium Level 8.6, Phosphorus Level 2.9, Magnesium Level 3.4H, Total Bilirubin 0.4, Aspartate Amino Transf (AST/SGOT) 16, Alanine Aminotransferase (ALT/SGPT) < 6L, Alkaline Phosphatase 139H, Total Protein 6.4, Albumin 1.7L, Globulin 4.7, Albumin/Globulin Ratio 0.4L 02/13/20 05:29: POC Whole Blood Glucose 74 Height (Feet): 5 Height (Inches): 6.00 Weight (Pounds): 150 General Appearance: no apparent distress Cardiovascular: normal rate Respiratory/Chest: decreased breath sounds Abdomen: distended Objective No change Johnny Houston MD Feb 13, 2020 13:51
--- NOTE | 2020-02-13 14:10 | Surgery Progress Note ---
Surgery Progress Note Subjective Procedure Performed Left femoral temporary hemodialysis catheter insertion Additional Comments stable labs noted no bleeding comfortable appearing no n/v Objective Last 24 Hour Vital Signs Date Time Temp Pulse Resp B/P (MAP) Pulse Ox O2 Delivery O2 Flow Rate FiO2 02/13/20 13:02 70 21 40 02/13/20 12:44 130/68 02/13/20 12:44 130/68 02/13/20 12:00 64 02/13/20 12:00 98.1 60 20 130/68 (88) 99 02/13/20 12:00 40 02/13/20 12:00 Mechanical Ventilator Mechanical Ventilator 02/13/20 09:05 68 128/68 02/13/20 09:05 68 128/68 02/13/20 09:04 128/68 02/13/20 08:00 Mechanical Ventilator Mechanical Ventilator 02/13/20 08:00 97.1 68 16 128/68 (88) 98 02/13/20 08:00 63 02/13/20 08:00 40 02/13/20 06:35 61 14 40 02/13/20 06:31 140/65 02/13/20 04:00 Mechanical Ventilator Mechanical Ventilator 02/13/20 04:00 40 02/13/20 04:00 61 02/13/20 04:00 98.4 65 16 140/65 (90) 99 02/13/20 01:30 65 15 40 02/13/20 00:53 120/51 02/13/20 00:00 68 02/13/20 00:00 40 02/13/20 00:00 98.8 68 15 138/66 (90) 97 02/13/20 00:00 Mechanical Ventilator Mechanical Ventilator 02/12/20 21:35 70 120/51 02/12/20 20:00 99.5 70 15 120/51 (74) 97 02/12/20 19:50 40 02/12/20 19:49 73 02/12/20 19:48 Mechanical Ventilator Mechanical Ventilator 02/12/20 19:30 78 24 40 02/12/20 17:56 116/53 02/12/20 17:56 116/53 02/12/20 17:56 62 116/53 02/12/20 16:00 40 02/12/20 16:00 97.9 68 16 116/53 (74) 98 02/12/20 16:00 62 02/12/20 16:00 Mechanical Ventilator Mechanical Ventilator 02/12/20 15:55 64 16 40 I&O Intake and Output 02/12/20 02/13/20 19:00 07:00 Intake Total 720 ml 450 ml Output Total 600 ml Balance 720 ml -150 ml Free Water 300 ml 100 ml Tube Feeding 420 ml 350 ml Output Urine Total 600 ml Dressing: saturated Cardiovascular: RSR Respiratory: decreased breath sounds Abdomen: soft, non-tender, present bowel sounds, non-distended Extremities: edema, no tenderness, no cyanosis, other Laboratory Tests Test 02/13/20 02:50 02/13/20 05:29 White Blood Count 9.2 K/UL (4.8-10.8) Red Blood Count 2.48 M/UL (4.20-5.40) L Hemoglobin 6.8 G/DL (12.0-16.0) *L Hematocrit 21.9 % (37.0-47.0) L Mean Corpuscular Volume 88 FL (80-99) Mean Corpuscular Hemoglobin 27.4 PG (27.0-31.0) Mean Corpuscular Hemoglobin Concent 31.1 G/DL (32.0-36.0) L Red Cell Distribution Width 14.6 % (11.6-14.8) Platelet Count 256 K/UL (150-450) Mean Platelet Volume 5.4 FL (6.5-10.1) L Neutrophils (%) (Auto) % (45.0-75.0) Lymphocytes (%) (Auto) % (20.0-45.0) Monocytes (%) (Auto) % (1.0-10.0) Eosinophils (%) (Auto) % (0.0-3.0) Basophils (%) (Auto) % (0.0-2.0) Differential Total Cells Counted 100 Neutrophils % (Manual) 70 % (45-75) Lymphocytes % (Manual) 21 % (20-45) Monocytes % (Manual) 4 % (1-10) Eosinophils % (Manual) 5 % (0-3) H Basophils % (Manual) 0 % (0-2) Band Neutrophils 0 % (0-8) Platelet Estimate Adequate Platelet Morphology Normal Hypochromasia 1+ Anisocytosis 1+ Sodium Level 132 MMOL/L (136-145) L Potassium Level 3.4 MMOL/L (3.5-5.1) L Chloride Level 96 MMOL/L (98-107) L Carbon Dioxide Level 30 MMOL/L (21-32) Anion Gap 6 mmol/L (5-15) Blood Urea Nitrogen 72 mg/dL (7-18) H Creatinine 3.7 MG/DL (0.55-1.30) H Estimat Glomerular Filtration Rate 13.1 mL/min (>60) Glucose Level 84 MG/DL (74-106) Calcium Level 8.6 MG/DL (8.5-10.1) Phosphorus Level 2.9 MG/DL (2.5-4.9) Magnesium Level 3.4 MG/DL (1.8-2.4) H Total Bilirubin 0.4 MG/DL (0.2-1.0) Aspartate Amino Transf (AST/SGOT) 16 U/L (15-37) Alanine Aminotransferase (ALT/SGPT) < 6 U/L (12-78) L Alkaline Phosphatase 139 U/L (46-116) H Total Protein 6.4 G/DL (6.4-8.2) Albumin 1.7 G/DL (3.4-5.0) L Globulin 4.7 g/dL Albumin/Globulin Ratio 0.4 (1.0-2.7) L POC Whole Blood Glucose 74 MG/DL (74-106) Plan Problems: (1) Dehydration (2) Acidosis (3) Depression (4) Pleural effusion (5) Respiratory failure (6) Schizophrenia (7) Hypoxia (8) UTI (urinary tract infection) (9) Pneumonia (10) NSTEMI (non-ST elevated myocardial infarction) (11) Tracheostomy in place (12) Feeding by G-tube (13) JAVIER (acute kidney injury) (14) Acute encephalopathy (15) Sacral decubitus ulcer, stage IV (16) Chronic respiratory failure (17) Ascites (18) Bacteremia (19) Hypernatremia (20) Proteinuria (21) Electrolyte imbalance (22) ACS (acute coronary syndrome) (23) Aortic dissection, thoracic (24) Respiratory failure, acute and chronic (25) JAVIER (acute kidney injury) (26) Abrasion of lip, initial encounter (27) COPD with exacerbation (28) Elevated alkaline phosphatase level (29) Renal failure (ARF), acute on chronic (30) HCAP (healthcare-associated pneumonia) (31) GT CLOGGED (32) Elevated lipase (33) Pancreatitis (34) Elevated troponin (35) Hypokalemia (36) Hyponatremia (37) Anemia (38) Renal failure (39) ARF (acute renal failure) (40) Pacemaker (41) Sepsis Assessment & Plan: leukocytosis anemia on HD renal insufficiency wounds addressed pancreatitis cont diet as tolerating trend labs lf'ts okay bleeding from permacath site suture used and hemostasis obtained plan removal of fem line if stable tomorrow pt presented on admission with Tracheostomy ,GT and Multiple Pressure Injuries. Skin assessment of skin under tracheal collar without evidence of skin breakdown. Peristomal GT site excoriated.Moderate amt of dark red sanguineous exudate. Full Thickness Sacral Pressure Injury with undermined borders (L)9 cm x (W)12cm x (D)1.8cm,Undermining clockwise8-9 by 2.2cm @1o'clock,undermining clockwise 1-4 by 1.9 @ 9'oclock Scattered necrotic tissue within wound bed. Borders are loose and necrotic with marginal erythema to outer perimeter of wound. NO elevation in skin temp noted periwound. Wound is malodorous. Small amt Brown exudate noted. Resolving Pressure Injury L Ischium(L)1.5cm x (W)1.5cm. Base of wound is 80% pink epithelial with an area that is moist and pink. NO odor or exudate noted. Bilat foot-drop noted. L Heel is boggy with non-blanchable erythema(L)4cm x (W)4cm. R heel is boggy with non-Blanchable erythema(L)5cm x (W)6cm. Tx.Plan: Cleanse sacral wound with Dakin's 0.125% annie. Loosely pack with Dakin's moistened Kerlix(Attention to undermined borders). Apply Moisture Barrier Paste periwound. Cover with Optifoam drsg. Change Daily and PRN. Apply Cavilon Skin Barrier to R and L Hels. Cover each heel with Optifoam drsg. Change every 7 days and prn. Reposition at least every 2hours or as tolerated. Off-load heels with Pillow. APM/JENNIFER MAttress overlay DAILY ESTIMATED NEEDS: Needs based on Critical care, wound, renal dysfunction 56 kg abw 28-33 kcals/kg 7570-0758 total kcals W/ HD (1.5-2.0) g protein/kg 84-112 g total protein Fluid per MD NUTRITION DIAGNOSIS: * Swallowing difficulty R/T dysphagia, respiratory status as evidenced by vent dep via trach, GT Dep. * Increase kcal and pro needs r/t wound healing, renal dysfunction as evidenced by admitted w/ stage 4 sacral wound, admitted w/ JAVIER, now on HD. CURRENT TF: Nepro @ 40ml/hr x 24 hrs-> now @35ml/hr ENTERAL NUTRITION RECOMMENDATIONS: Nepro @ 40ml/hr x 24 hrs + Prosource 1pkt QD to provide 960ml, 1728kcal, 78g+11g prot, 698ml free water * As medically appropriate, increase TF goal rate to 40ml/hr x 24 hrs * Add Prosource 1pkt QD to better meet increased protein needs (additional 11g prot) * Water flush per MD/ HOB over 30 degrees ADDITIONAL RECOMMENDATIONS: * Per SNF in NOV 2019: HT=63"/ Rec daily calibrated bedscale wt * Monitor for continuity of HD, last HD 02/07 * Rec phos binders- consistently elevated phos level -> now wnl * Wound care: add Nephrovite x 1, ZnSO4 220mg QD x 10 days Reynaldo BID via PEG (mix w/ 2-4 oz water); vit C per nephro * Monitor TF tolerance: TF lowered for GT leak, increase as able * Add bowel regimen: now added, last BM 02/09 (42) Hyponatremia Lane Saavedra Feb 13, 2020 14:10
[2020-02-13 15:34] VITALS: BP 134/61
--- NOTE | 2020-02-13 17:00 | NUR ---
NURSE NOTES: Blood transfusion completed no reaction noted. 300ml in No fluid retention noted. No sob noted. No fever
--- NOTE | 2020-02-13 19:15 | NUR ---
NURSE NOTES: Received report from ERASMO Hernandes. Patient awake in bed, afebrile and in no apparent acute respiratory and cardiac distress noted. SR on monitor worker @62 bpm.Trach to vent S6, AC 14, TV 500, FiO2 40% and PEEP 5 tolerating well with vent setting, saturating at 99%. On nepro at 35ml/hr via GT. Intact, patent and infusing well, no residual. With Right hand 22g intact, patent and asymptomatic. R chest perma-catheter intact and asymptomatic no bleeding noted. Norman cath to urine bag draining color light color yellow urine via gravity.Soft restraints on bilateral wrsist, skin is intact , no signs of impede circulation. Safety measures in place, bed in lowest position and locked. Call light within reach. Will continue plan of care and monitor pt
--- NOTE | 2020-02-13 19:31 | NUR ---
NURSE HAND-OFF REPORT: Important Events on Shift:none Patient Status: full code Diet: Pending Orders: none Pending Results/Labs:none Pending MD notification:none Latest Vital Signs: Temperature 97.7 , Pulse 59 , B/P 134 /61 , Respiratory Rate 14 , O2 SAT 99 , Mechanical Ventilator, O2 Flow Rate . Vital Sign Comment: EKG Rhythm: Sinus Rhythm Rhythm change?: N MD Notified?: N -Dr. Екатерина HATFIELD Response: Order Received& Read Back Latest Chavarria Fall Score: 60 Fall Risk: High Risk Safety Measures: Call light Within Reach, Bed Alarm Zone 1, Side Rails Side Rails x2, Bed position Low and Locked. Fall Precautions: Yellow Socks Report given to Lesley.
[2020-02-13 20:00] VITALS: BP 139/71
[2020-02-13] MEDS: Miralax 17gm pkt GT SCH (20:22)
[2020-02-13] MEDS: Dyna-Hex 2% Top Sol 2oz TOPIC SCH (20:22)
[2020-02-14] VITALS: BP 144/66
--- NOTE | 2020-02-14 00:10 | NUR ---
NURSE NOTES: Pt in bed, awake. In no apparent cardiac and respiratory distress noted. Saturating well. Oral care provided. Turned and repositioned. Will continue to monitor and plan of care
--- NOTE | 2020-02-14 03:28 | NUR ---
NURSE NOTES: Sponge bath given, wound dressing change. Oral care provided. Gown and linens changed. No BM noted.
[2020-02-14 04:00] VITALS: BP 149/70
[2020-02-14] MEDS: HydrALAZINE 25mg tab GT SCH ×3 (05:23→18:22)
[2020-02-14] MEDS: Metoclopramide 10mg/2ml Inj IVP SCH ×3 (05:23→18:22)
[2020-02-14 05:52] LABS: BASOPHILS % (AUTO) 0.5 % (0.0-2.0); EOSINOPHILS % (AUTO) 1.6 % (0.0-3.0); HEMATOCRIT 28.3 % (37.0-47.0); HEMOGLOBIN 9.2 G/DL (12.0-16.0); LYMPHOCYTES % (AUTO) 17.3 % (20.0-45.0); MEAN CORPUSCULAR VOLUME 85 FL (80-99); MONOCYTES % (AUTO) 5.6 % (1.0-10.0); PLATELET COUNT 311 K/UL (150-450); RED BLOOD COUNT 3.33 M/UL (4.20-5.40); RED CELL DISTRIBUTION WIDTH 14.8 % (11.6-14.8); WHITE BLOOD COUNT 10.3 K/UL (4.8-10.8)
[2020-02-14 06:18] LABS: ALANINE AMINOTRANSFERASE < 6 U/L (12-78); ALBUMIN 1.9 G/DL (3.4-5.0); ALBUMIN/GLOBULIN RATIO 0.3 (1.0-2.7); ALKALINE PHOSPHATASE 180 U/L (46-116); ANION GAP 10 mmol/L (5-15); ASPARTATE AMINO TRANSFERASE 17 U/L (15-37); BILIRUBIN,TOTAL 0.4 MG/DL (0.2-1.0); BLOOD UREA NITROGEN 85 mg/dL (7-18); CALCIUM 9.3 MG/DL (8.5-10.1); CARBON DIOXIDE 26 MMOL/L (21-32); CHLORIDE 95 MMOL/L (98-107); CREATININE 3.9 MG/DL (0.55-1.30); PHOSPHORUS 2.9 MG/DL (2.5-4.9); POTASSIUM 3.3 MMOL/L (3.5-5.1); SODIUM 131 MMOL/L (136-145)
--- NOTE | 2020-02-14 06:35 | Hematology/Onc Progress Note ---
Assessment/Plan Assessment/Plan IM note Covering for Dr. Dong Assessment and Recs # Leukocytosis, now with pna v other process --> Cxr: : Large left pleural effusion, Bilateral interstitial and airspace infiltrates versus edema --> wbc 16-->26->30-->10->8 --> ABX zosyn-->angelo/vanc-->angelo/tobra->off --> ID recs are noted --> smear has been reviewed # Anemia of chronic disease due to underlying chronic medical issues, multifactorial --> Anemia workup has been reviewed, cw acd --> No evidence of hemolysis is noted, peripheral smear has been reviewed. --> Hgb goal >7. Transfuse prn. --> Epogen required, to continue --> Medications have been reviewed --> low threshold for gi evaluation in case has occult + --> hgb 7.1-->7.8-->>>5.9-->7.3-->7-->7.2-->7.9-->8.6-->8.2-->8.5-->7->8.5->6.8-->9.2 --> 1 unit prbc1/, 2 units 01/15. 02/06, 02/12 --> gi eval as needed # Coagulopathy with inr 1.5 --> consider vit k/ffp as needed preprocedure --> labs noted # JAVIER initially >2 --> on ivfs --> per renal # Elevated d-dimer --> venous duplex ordered-->reviewed, is neg --> in prior neg # Dysphagia s/p peg --> as per gi # Thoracic aortic dissection --> s/p repair early 2017 # Chronic Resp failure -> s/p trach/vent # Psychiatric history on ativan/haldol # [place] resident # Dvt ppx --> scds The timing of this note does not necessarily reflect the time of the patient was seen. Greatly appreciate consultation. Subjective Allergies: Coded Allergies: No Known Allergies (Unverified , 10/10/17) All Systems: reviewed and negative except above Subjective 01/16 left femoral arden in place, on vent, icu, hgb better 6 labs are noted, wbc 30, hgb 7, may require prbc today 01/27 is off amio, on epoogen, hgb reviewed, 7.2, transfuse if unstable 01/28 pain meds given, some foaming around mouth, no bleeding 01/29 hd was done yesterday, no bleedig, cbc pending, asa given 01/30 labs are noted, no bleeding, labs reviewed, pending meds 02/01 labs are noted, no bleeding, meds reviewed, no f/c, trach/vent 02/02 labs noted, no night sweats, t/v, labs ordered for am 02/03 labs reviewed, meds noted, no bleeding, hgb 7.9 02/04 meds noted, no bleeding, labs reviewed, hgb 8 02/05 labs are pending, some secretions are noted, no bleeding 02/[address] still with bleed dw Rn, will place seal/further pressure 02/08 labs reviewed, grimacing, meds noted, vitals noted, seen by cards 02/09 on vent, meds reviewed, hd as per renal, labs pending 02/10 vent, comfortable, no bleeding or chills, hgb stable 02/11 nv, on vent, hgb 8.5, no new events, stable, roman Rn 02/12 nv, trach to vent, hgb 6.8 to get 1 unit prbc 02/13 nv, labs reviewed, hgb has improved, remains on a vent Objective Objective Current Medications Medications (Trade) Dose Ordered Sig/Penny Route PRN Reason Start Time Stop Time Status Last Admin Dose Admin Acetaminophen (Tylenol) 500 mg Q6H PRN GT FEVER 01/21/20 20:45 02/20/20 20:44 02/12/20 00:42 Acetaminophen (Tylenol) 650 mg Q6H PRN GT For Pain 02/09/20 17:15 03/10/20 17:14 02/09/20 17:39 Acetaminophen/ Hydrocodone Bitart ([place] 5/325) 1 tab Q6H PRN ORAL For Pain 02/07/20 11:00 02/14/20 10:59 02/13/20 11:08 Amantadine HCl (Symmetrel) 100 mg TWICE A DAY GT 01/31/20 18:00 03/01/20 17:59 02/13/20 17:15 Amlodipine Besylate (Norvasc) 5 mg BID GT 01/22/20 18:00 02/20/20 15:44 02/13/20 17:17 Aspirin (ASA) 81 mg DAILY GT 01/20/20 09:00 03/05/20 08:59 02/13/20 09:05 Atorvastatin Calcium (Lipitor) 10 mg BEDTIME GT 01/17/20 21:00 04/16/20 20:59 02/13/20 20:23 Chlorhexidine Gluconate (Ling-Hex 2%) 1 applic DAILY@1999 TOPIC 01/17/20 20:00 04/16/20 19:59 02/13/20 20:22 Dextrose (Dextrose 50%) 25 ml Q30M PRN IV Hypoglycemia 01/15/20 22:15 04/14/20 22:14 Dextrose (Dextrose 50%) 50 ml Q30M PRN IV Hypoglycemia 01/15/20 22:15 04/14/20 22:14 01/22/20 17:54 Docusate Sodium (Colace) 200 mg BIDPRN PRN GT Constipation 01/31/20 07:45 03/01/20 07:44 02/04/20 11:21 Epoetin Gelacio (Epoetin Gelacio(ESRD on dialysis)) 10,000 unit MON-MON-MON SUBQ 01/27/20 21:00 04/26/20 20:59 02/12/20 21:35 Hydralazine HCl (Apresoline) 25 mg Q6HR GT 01/26/20 18:15 04/25/20 18:14 02/14/20 05:23 Isosorbide Dinitrate (Isordil) 20 mg TID GT 01/25/20 09:00 02/19/20 08:59 02/13/20 17:16 Lactulose (Cephulac) 20 gm THREE TIMES A DAY GT 02/04/20 13:00 03/05/20 12:59 02/13/20 17:15 Lansoprazole (Prevacid) 30 mg BID GT 01/19/20 18:00 02/18/20 17:59 02/13/20 17:16 Metoclopramide HCl (Reglan) 5 mg Q6HR IVP 02/05/20 07:00 03/06/20 06:59 02/14/20 05:23 Metoprolol Tartrate (Lopressor) 25 mg Q12HR ORAL 01/27/20 21:00 04/22/20 20:59 02/13/20 20:23 Polyethylene Glycol (Miralax) 17 gm BEDTIME GT 02/04/20 21:00 03/05/20 20:59 02/13/20 20:22 Sodium Hypochlorite (Dakin's Quarter Strength) 1 applic DAILY TOPIC 01/30/20 09:00 02/29/20 08:59 02/13/20 09:04 Zinc Oxide (Zinc Oxide) 1 applic TIDPRN PRN TOPIC diogenes GT 01/16/20 13:15 04/15/20 13:14 01/16/20 14:55 Last 24 Hour Vital Signs Date Time Temp Pulse Resp B/P (MAP) Pulse Ox O2 Delivery O2 Flow Rate FiO2 02/14/20 05:23 149/70 02/14/20 04:14 73 02/14/20 04:00 Mechanical Ventilator Mechanical Ventilator 02/14/20 04:00 40 02/14/20 04:00 97.9 73 25 149/70 (96) 97 02/14/20 03:24 73 23 40 02/14/20 00:00 Mechanical Ventilator Mechanical Ventilator 02/14/20 00:00 40 02/14/20 00:00 98.4 75 16 144/66 (92) 97 02/13/20 23:46 144/66 02/13/20 23:41 72 02/13/20 23:21 78 31 40 02/13/20 20:23 68 139/71 02/13/20 20:00 Mechanical Ventilator Mechanical Ventilator 02/13/20 20:00 98.1 68 19 139/71 (93) 98 02/13/20 20:00 40 02/13/20 19:30 60 02/13/20 19:30 58 14 40 02/13/20 17:17 59 134/61 02/13/20 17:16 116/79 02/13/20 17:16 134/61 02/13/20 16:46 40 02/13/20 16:41 Mechanical Ventilator Mechanical Ventilator 02/13/20 16:39 59 02/13/20 15:34 97.7 65 14 134/61 (85) 99 02/13/20 13:02 70 21 40 02/13/20 12:44 130/68 02/13/20 12:44 130/68 02/13/20 12:00 64 02/13/20 12:00 98.1 60 20 130/68 (88) 99 02/13/20 12:00 40 02/13/20 12:00 Mechanical Ventilator Mechanical Ventilator 02/13/20 09:05 68 128/68 02/13/20 09:05 68 128/68 02/13/20 09:04 128/68 02/13/20 08:00 Mechanical Ventilator Mechanical Ventilator 02/13/20 08:00 97.1 68 16 128/68 (88) 98 02/13/20 08:00 63 02/13/20 08:00 40 02/13/20 06:35 61 14 40 02/13/20 06:31 140/65 02/13/20 04:00 Mechanical Ventilator Mechanical Ventilator 02/13/20 04:00 40 02/13/20 04:00 61 02/13/20 04:00 98.4 65 16 140/65 (90) 99 02/13/20 01:30 65 15 40 02/13/20 00:53 120/51 02/13/20 00:00 68 02/13/20 00:00 40 02/13/20 00:00 98.8 68 15 138/66 (90) 97 02/13/20 00:00 Mechanical Ventilator Mechanical Ventilator 02/12/20 21:35 70 120/51 02/12/20 20:00 99.5 70 15 120/51 (74) 97 02/12/20 19:50 40 02/12/20 19:49 73 02/12/20 19:48 Mechanical Ventilator Mechanical Ventilator 02/12/20 19:30 78 24 40 02/12/20 17:56 116/53 02/12/20 17:56 116/53 02/12/20 17:56 62 116/53 02/12/20 16:00 40 02/12/20 16:00 97.9 68 16 116/53 (74) 98 02/12/20 16:00 62 02/12/20 16:00 Mechanical Ventilator Mechanical Ventilator 02/12/20 15:55 64 16 40 02/12/20 12:29 124/59 02/12/20 12:28 124/59 02/12/20 12:00 Mechanical Ventilator Mechanical Ventilator 02/12/20 12:00 60 02/12/20 12:00 40 02/12/20 12:00 98.1 62 16 124/59 (80) 99 02/12/20 10:55 60 17 40 02/12/20 09:05 68 132/70 02/12/20 09:05 132/70 02/12/20 09:05 68 132/70 02/12/20 08:00 Mechanical Ventilator Mechanical Ventilator 02/12/20 08:00 40 02/12/20 08:00 97.6 68 19 132/70 (90) 100 02/12/20 07:46 62 02/12/20 07:30 63 31 40 Intake and Output 02/13/20 02/14/20 19:00 07:00 Intake Total 540 ml 600 ml Output Total 650 ml 450 ml Balance -110 ml 150 ml Free Water 100 ml 250 ml Tube Feeding 140 ml 350 ml Blood Product 300 ml Output Urine Total 650 ml 450 ml Labs Test 02/11/20 14:53 02/11/20 17:37 02/12/20 04:24 02/12/20 05:23 POC Whole Blood Glucose 113 MG/DL (74-106) 106 MG/DL (74-106) 103 MG/DL (74-106) White Blood Count 10.4 K/UL (4.8-10.8) Red Blood Count 2.89 M/UL (4.20-5.40) Hemoglobin 8.1 G/DL (12.0-16.0) Hematocrit 24.1 % (37.0-47.0) Mean Corpuscular Volume 83 FL (80-99) Mean Corpuscular Hemoglobin 27.9 PG (27.0-31.0) Mean Corpuscular Hemoglobin Concent 33.5 G/DL (32.0-36.0) Red Cell Distribution Width 14.6 % (11.6-14.8) Platelet Count 294 K/UL (150-450) Mean Platelet Volume 5.4 FL (6.5-10.1) Neutrophils (%) (Auto) 80.9 % (45.0-75.0) Lymphocytes (%) (Auto) 14.3 % (20.0-45.0) Monocytes (%) (Auto) 4.1 % (1.0-10.0) Eosinophils (%) (Auto) 0.0 % (0.0-3.0) Basophils (%) (Auto) 0.7 % (0.0-2.0) Sodium Level 132 MMOL/L (136-145) Potassium Level 3.1 MMOL/L (3.5-5.1) Chloride Level 93 MMOL/L (98-107) Carbon Dioxide Level 31 MMOL/L (21-32) Anion Gap 8 mmol/L (5-15) Blood Urea Nitrogen 67 mg/dL (7-18) Creatinine 3.6 MG/DL (0.55-1.30) Estimat Glomerular Filtration Rate 13.6 mL/min (>60) Glucose Level 91 MG/DL (74-106) Uric Acid 4.4 MG/DL (2.6-7.2) Calcium Level 8.8 MG/DL (8.5-10.1) Phosphorus Level 3.0 MG/DL (2.5-4.9) Magnesium Level 3.3 MG/DL (1.8-2.4) Total Bilirubin 0.4 MG/DL (0.2-1.0) Aspartate Amino Transf (AST/SGOT) 18 U/L (15-37) Alanine Aminotransferase (ALT/SGPT) 7 U/L (12-78) Alkaline Phosphatase 167 U/L (46-116) Total Protein 7.0 G/DL (6.4-8.2) Albumin 1.8 G/DL (3.4-5.0) Globulin 5.2 g/dL Albumin/Globulin Ratio 0.3 (1.0-2.7) Test 02/13/20 02:50 02/13/20 05:29 02/14/20 03:10 White Blood Count 9.2 K/UL (4.8-10.8) 10.3 K/UL (4.8-10.8) Red Blood Count 2.48 M/UL (4.20-5.40) 3.33 M/UL (4.20-5.40) Hemoglobin 6.8 G/DL (12.0-16.0) 9.2 G/DL (12.0-16.0) Hematocrit 21.9 % (37.0-47.0) 28.3 % (37.0-47.0) Mean Corpuscular Volume 88 FL (80-99) 85 FL (80-99) Mean Corpuscular Hemoglobin 27.4 PG (27.0-31.0) 27.7 PG (27.0-31.0) Mean Corpuscular Hemoglobin Concent 31.1 G/DL (32.0-36.0) 32.6 G/DL (32.0-36.0) Red Cell Distribution Width 14.6 % (11.6-14.8) 14.8 % (11.6-14.8) Platelet Count 256 K/UL (150-450) 311 K/UL (150-450) Mean Platelet Volume 5.4 FL (6.5-10.1) 5.3 FL (6.5-10.1) Neutrophils (%) (Auto) % (45.0-75.0) 75.0 % (45.0-75.0) Lymphocytes (%) (Auto) % (20.0-45.0) 17.3 % (20.0-45.0) Monocytes (%) (Auto) % (1.0-10.0) 5.6 % (1.0-10.0) Eosinophils (%) (Auto) % (0.0-3.0) 1.6 % (0.0-3.0) Basophils (%) (Auto) % (0.0-2.0) 0.5 % (0.0-2.0) Differential Total Cells Counted 100 Neutrophils % (Manual) 70 % (45-75) Lymphocytes % (Manual) 21 % (20-45) Monocytes % (Manual) 4 % (1-10) Eosinophils % (Manual) 5 % (0-3) Basophils % (Manual) 0 % (0-2) Band Neutrophils 0 % (0-8) Platelet Estimate Adequate Platelet Morphology Normal Hypochromasia 1+ Anisocytosis 1+ Sodium Level 132 MMOL/L (136-145) 131 MMOL/L (136-145) Potassium Level 3.4 MMOL/L (3.5-5.1) 3.3 MMOL/L (3.5-5.1) Chloride Level 96 MMOL/L (98-107) 95 MMOL/L (98-107) Carbon Dioxide Level 30 MMOL/L (21-32) 26 MMOL/L (21-32) Anion Gap 6 mmol/L (5-15) 10 mmol/L (5-15) Blood Urea Nitrogen 72 mg/dL (7-18) 85 mg/dL (7-18) Creatinine 3.7 MG/DL (0.55-1.30) 3.9 MG/DL (0.55-1.30) Estimat Glomerular Filtration Rate 13.1 mL/min (>60) 12.4 mL/min (>60) Glucose Level 84 MG/DL (74-106) 102 MG/DL (74-106) Calcium Level 8.6 MG/DL (8.5-10.1) 9.3 MG/DL (8.5-10.1) Phosphorus Level 2.9 MG/DL (2.5-4.9) 2.9 MG/DL (2.5-4.9) Magnesium Level 3.4 MG/DL (1.8-2.4) 3.3 MG/DL (1.8-2.4) Total Bilirubin 0.4 MG/DL (0.2-1.0) 0.4 MG/DL (0.2-1.0) Aspartate Amino Transf (AST/SGOT) 16 U/L (15-37) 17 U/L (15-37) Alanine Aminotransferase (ALT/SGPT) < 6 U/L (12-78) < 6 U/L (12-78) Alkaline Phosphatase 139 U/L (46-116) 180 U/L (46-116) Total Protein 6.4 G/DL (6.4-8.2) 7.4 G/DL (6.4-8.2) Albumin 1.7 G/DL (3.4-5.0) 1.9 G/DL (3.4-5.0) Globulin 4.7 g/dL 5.5 g/dL Albumin/Globulin Ratio 0.4 (1.0-2.7) 0.3 (1.0-2.7) POC Whole Blood Glucose 74 MG/DL (74-106) Height (Feet): 5 Height (Inches): 6.00 Weight (Pounds): 150 Objective Physical Exam: Vitals: reviewed General: NAD HEENT: nc, at Neck: supple ++trach/vent Chest: clear breath sounds bilaterally Cardiovascular: RRR, no s3, s4 Abdomen: soft, nontender, nd +gtube Extremities: no cce, normal range of motion Neuro: alert Evan Muhammad MD Feb 14, 2020 06:35
--- NOTE | 2020-02-14 06:37 | NUR ---
NURSE NOTES: Notified Dr bravo regarding the am labs today. K level is 3.3 , Na 131, BUN 85. Awaiting response.
--- NOTE | 2020-02-14 07:29 | NUR ---
NURSE HAND-OFF REPORT: Important Events on Shift:Stable Patient Status: Stable Diet: Nepro Pending Orders: Pending Results/Labs: Pending MD notification: Latest Vital Signs: Temperature 97.9 , Pulse 73 , B/P 149 /70 , Respiratory Rate 25 , O2 SAT 97 , Mechanical Ventilator, O2 Flow Rate . Vital Sign Comment: EKG Rhythm: Sinus Rhythm Rhythm change?: N MD Notified?: MD Response: Latest [place] Fall Score: 60 Fall Risk: High Risk Safety Measures: Call light Within Reach, Bed Alarm Zone 1, Side Rails Side Rails x2, Bed position Low and Locked. Fall Precautions: Yellow Socks Report given to ERASMO Lu.
--- NOTE | 2020-02-14 07:30 | NUR ---
NURSE NOTES: Received pt from ERASMO Girard, pt is awake and confused and obtunded, pt has trach to ventilator AC 14 TV 500 PEEP 5 FIO2 40%, Pt is on continues heart monitoring. pt has g tube in place is working well. pt has Norman cath in place is working well. pt has intact iv access RH 22G SL.Dr Houston is aware about K 3.3 NA 131, waiting to call back. All needs attended, bed is locked and is in the lowest position, call light within easy reach. will continue to monitor.
[2020-02-14 08:58] VITALS: BP 149/70
[2020-02-14] MEDS: Aspirin Baby 81mg GT SCH (09:00)
[2020-02-14] MEDS: Amantadine 100mg cap GT SCH ×2 (09:00→18:22)
[2020-02-14] MEDS: Lactulose 20gm/30ml UDC GT SCH ×3 (09:00→18:22)
[2020-02-14] MEDS: Dakin's 0.125% Soln (Quarter Strength) 16oz TOPIC SCH (09:01)
[2020-02-14 12:00] VITALS: BP 148/57
--- NOTE | 2020-02-14 12:36 | Pulmonology Progress Note ---
Subjective ROS Limited/Unobtainable: Yes Interval Events: s/p transfusion Constitutional: Reports: no symptoms HEENT: Repors: no symptoms Respiratory: Reports: no symptoms Cardiovascular: Reports: no symptoms Gastrointestinal/Abdominal: Reports: no symptoms Allergies: Coded Allergies: No Known Allergies (Unverified , 10/10/17) All Systems: reviewed and negative except above Objective Last 24 Hour Vital Signs Date Time Temp Pulse Resp B/P (MAP) Pulse Ox O2 Delivery O2 Flow Rate FiO2 02/14/20 12:18 148/57 02/14/20 12:17 148/57 02/14/20 12:00 97.9 67 16 148/57 (87) 98 02/14/20 09:01 149/70 02/14/20 09:00 73 149/70 02/14/20 09:00 73 149/70 02/14/20 08:58 97.9 73 25 149/70 (96) 97 02/14/20 08:10 80 02/14/20 07:29 70 26 40 02/14/20 05:23 149/70 02/14/20 04:14 73 02/14/20 04:00 Mechanical Ventilator Mechanical Ventilator 02/14/20 04:00 40 02/14/20 04:00 97.9 73 25 149/70 (96) 97 02/14/20 03:24 73 23 40 02/14/20 00:00 Mechanical Ventilator Mechanical Ventilator 02/14/20 00:00 40 02/14/20 00:00 98.4 75 16 144/66 (92) 97 02/13/20 23:46 144/66 02/13/20 23:41 72 02/13/20 23:21 78 31 40 02/13/20 20:23 68 139/71 02/13/20 20:00 Mechanical Ventilator Mechanical Ventilator 02/13/20 20:00 98.1 68 19 139/71 (93) 98 02/13/20 20:00 40 02/13/20 19:30 60 02/13/20 19:30 58 14 40 02/13/20 17:17 59 134/61 02/13/20 17:16 116/79 02/13/20 17:16 134/61 02/13/20 16:46 40 02/13/20 16:41 Mechanical Ventilator Mechanical Ventilator 02/13/20 16:39 59 02/13/20 15:34 97.7 65 14 134/61 (85) 99 02/13/20 13:02 70 21 40 02/13/20 12:44 130/68 02/13/20 12:44 130/68 Intake and Output 02/13/20 02/14/20 19:00 07:00 Intake Total 540 ml 600 ml Output Total 650 ml 450 ml Balance -110 ml 150 ml Free Water 100 ml 250 ml Tube Feeding 140 ml 350 ml Blood Product 300 ml Output Urine Total 650 ml 450 ml Objective saturating well on current vent setting General Appearance: no acute distress HEENT: normocephalic, other - trach Respiratory: chest wall non-tender, other - coarse lung sounds Cardiovascular: normal rate, regular rhythm Abdomen: soft, non tender Genitourinary: other - Norman Extremities: other - trace edema Laboratory Tests 02/14/20 03:10: White Blood Count 10.3, Red Blood Count 3.33L, Hemoglobin 9.2#L, Hematocrit 28.3L, Mean Corpuscular Volume 85, Mean Corpuscular Hemoglobin 27.7, Mean Corpuscular Hemoglobin Concent 32.6, Red Cell Distribution Width 14.8, Platelet Count 311, Mean Platelet Volume 5.3L, Neutrophils (%) (Auto) 75.0, Lymphocytes (%) (Auto) 17.3L, Monocytes (%) (Auto) 5.6, Eosinophils (%) (Auto) 1.6, Basophils (%) (Auto) 0.5, Sodium Level 131L, Potassium Level 3.3L, Chloride Level 95L, Carbon Dioxide Level 26, Anion Gap 10, Blood Urea Nitrogen 85H, Creatinine 3.9H, Estimat Glomerular Filtration Rate 12.4, Glucose Level 102, Calcium Level 9.3, Phosphorus Level 2.9, Magnesium Level 3.3H, Total Bilirubin 0.4, Aspartate Amino Transf (AST/SGOT) 17, Alanine Aminotransferase (ALT/SGPT) < 6L, Alkaline Phosphatase 180H, Total Protein 7.4, Albumin 1.9L, Globulin 5.5, Albumin/Globulin Ratio 0.3L Current Medications Medications (Trade) Dose Ordered Sig/Penny Route PRN Reason Start Time Stop Time Status Last Admin Dose Admin Acetaminophen (Tylenol) 500 mg Q6H PRN GT FEVER 01/21/20 20:45 02/20/20 20:44 02/12/20 00:42 Acetaminophen (Tylenol) 650 mg Q6H PRN GT For Pain 02/09/20 17:15 03/10/20 17:14 02/09/20 17:39 Amantadine HCl (Symmetrel) 100 mg TWICE A DAY GT 01/31/20 18:00 03/01/20 17:59 02/14/20 09:00 Amlodipine Besylate (Norvasc) 5 mg BID GT 01/22/20 18:00 02/20/20 15:44 02/14/20 09:00 Aspirin (ASA) 81 mg DAILY GT 01/20/20 09:00 03/05/20 08:59 02/14/20 09:00 Atorvastatin Calcium (Lipitor) 10 mg BEDTIME GT 01/17/20 21:00 04/16/20 20:59 02/13/20 20:23 Chlorhexidine Gluconate (Ling-Hex 2%) 1 applic DAILY@199901/17/20 20:00 04/16/20 19:59 02/13/20 20:22 Dextrose (Dextrose 50%) 25 ml Q30M PRN IV Hypoglycemia 01/15/20 22:15 04/14/20 22:14 Dextrose (Dextrose 50%) 50 ml Q30M PRN IV Hypoglycemia 01/15/20 22:15 04/14/20 22:14 01/22/20 17:54 Docusate Sodium (Colace) 200 mg BIDPRN PRN GT Constipation 01/31/20 07:45 03/01/20 07:44 02/04/20 11:21 Epoetin Gelacio (Epoetin Gelacio(ESRD on dialysis)) 10,000 unit MON-MON-MON SUBQ 01/27/20 21:00 04/26/20 20:59 02/12/20 21:35 Hydralazine HCl (Apresoline) 25 mg Q6HR GT 01/26/20 18:15 04/25/20 18:14 02/14/20 12:18 Isosorbide Dinitrate (Isordil) 20 mg TID GT 01/25/20 09:00 02/19/20 08:59 02/14/20 12:17 Lactulose (Cephulac) 20 gm THREE TIMES A DAY GT 02/04/20 13:00 03/05/20 12:59 02/14/20 12:17 Lansoprazole (Prevacid) 30 mg BID GT 01/19/20 18:00 02/18/20 17:59 02/14/20 09:00 Metoclopramide HCl (Reglan) 5 mg Q6HR IVP 02/05/20 07:00 03/06/20 06:59 02/14/20 12:18 Metoprolol Tartrate (Lopressor) 25 mg Q12HR ORAL 01/27/20 21:00 04/22/20 20:59 02/14/20 09:00 Polyethylene Glycol (Miralax) 17 gm BEDTIME GT 02/04/20 21:00 03/05/20 20:59 02/13/20 20:22 Sodium Hypochlorite (Dakin's Quarter Strength) 1 applic DAILY TOPIC 01/30/20 09:00 02/29/20 08:59 02/14/20 09:01 Zinc Oxide (Zinc Oxide) 1 applic TIDPRN PRN TOPIC diogenes GT 01/16/20 13:15 04/15/20 13:14 01/16/20 14:55 Assessment/Plan Assessment/Plan 1. Large left effusion. - S/p thoracentesis; CXR better - pleural fluid pathology report: negative for malignant cell 2. Chronic respiratory failure. - Continue trach care - Cont AC mode - Currently saturating at 97% 3. Sepsis; improving 4. Anemia - s/p transfusion - s/p Epogen Hyponatremia, hypokalemia - Dr. Houston following s/p HD on broad-spectrum antibiotics. Pulmonary hygiene. DVT and GI prophylaxes. Dc planning in place FiO2 increased previously to 60%; now decreased to 40%; will wean further as tolerated Cruz Wilson Feb 14, 2020 12:36 Elijah Stephen MD Feb 14, 2020 15:36
--- NOTE | 2020-02-14 13:32 | Surgery Progress Note ---
Surgery Progress Note Subjective Procedure Performed Left femoral temporary hemodialysis catheter insertion Additional Comments no acute events labs noted comfortable appearing on vent support weaning Objective Last 24 Hour Vital Signs Date Time Temp Pulse Resp B/P (MAP) Pulse Ox O2 Delivery O2 Flow Rate FiO2 02/14/20 12:18 148/57 02/14/20 12:17 148/57 02/14/20 12:00 97.9 67 16 148/57 (87) 98 02/14/20 09:01 149/70 02/14/20 09:00 73 149/70 02/14/20 09:00 73 149/70 02/14/20 08:58 97.9 73 25 149/70 (96) 97 02/14/20 08:10 80 02/14/20 07:29 70 26 40 02/14/20 05:23 149/70 02/14/20 04:14 73 02/14/20 04:00 Mechanical Ventilator Mechanical Ventilator 02/14/20 04:00 40 02/14/20 04:00 97.9 73 25 149/70 (96) 97 02/14/20 03:24 73 23 40 02/14/20 00:00 Mechanical Ventilator Mechanical Ventilator 02/14/20 00:00 40 02/14/20 00:00 98.4 75 16 144/66 (92) 97 02/13/20 23:46 144/66 02/13/20 23:41 72 02/13/20 23:21 78 31 40 02/13/20 20:23 68 139/71 02/13/20 20:00 Mechanical Ventilator Mechanical Ventilator 02/13/20 20:00 98.1 68 19 139/71 (93) 98 02/13/20 20:00 40 02/13/20 19:30 60 02/13/20 19:30 58 14 40 02/13/20 17:17 59 134/61 02/13/20 17:16 116/79 02/13/20 17:16 134/61 02/13/20 16:46 40 02/13/20 16:41 Mechanical Ventilator Mechanical Ventilator 02/13/20 16:39 59 02/13/20 15:34 97.7 65 14 134/61 (85) 99 I&O Intake and Output 02/13/20 02/14/20 19:00 07:00 Intake Total 540 ml 600 ml Output Total 650 ml 450 ml Balance -110 ml 150 ml Free Water 100 ml 250 ml Tube Feeding 140 ml 350 ml Blood Product 300 ml Output Urine Total 650 ml 450 ml Dressing: saturated Cardiovascular: RSR Respiratory: decreased breath sounds Abdomen: soft, non-tender, present bowel sounds, non-distended Extremities: edema, no tenderness, no cyanosis Laboratory Tests Test 02/14/20 01:04 02/14/20 03:10 02/14/20 06:24 02/14/20 12:48 POC Whole Blood Glucose 108 MG/DL (74-106) H 117 MG/DL (74-106) H 111 MG/DL (74-106) H White Blood Count 10.3 K/UL (4.8-10.8) Red Blood Count 3.33 M/UL (4.20-5.40) L Hemoglobin 9.2 G/DL (12.0-16.0) #L Hematocrit 28.3 % (37.0-47.0) L Mean Corpuscular Volume 85 FL (80-99) Mean Corpuscular Hemoglobin 27.7 PG (27.0-31.0) Mean Corpuscular Hemoglobin Concent 32.6 G/DL (32.0-36.0) Red Cell Distribution Width 14.8 % (11.6-14.8) Platelet Count 311 K/UL (150-450) Mean Platelet Volume 5.3 FL (6.5-10.1) L Neutrophils (%) (Auto) 75.0 % (45.0-75.0) Lymphocytes (%) (Auto) 17.3 % (20.0-45.0) L Monocytes (%) (Auto) 5.6 % (1.0-10.0) Eosinophils (%) (Auto) 1.6 % (0.0-3.0) Basophils (%) (Auto) 0.5 % (0.0-2.0) Sodium Level 131 MMOL/L (136-145) L Potassium Level 3.3 MMOL/L (3.5-5.1) L Chloride Level 95 MMOL/L (98-107) L Carbon Dioxide Level 26 MMOL/L (21-32) Anion Gap 10 mmol/L (5-15) Blood Urea Nitrogen 85 mg/dL (7-18) H Creatinine 3.9 MG/DL (0.55-1.30) H Estimat Glomerular Filtration Rate 12.4 mL/min (>60) Glucose Level 102 MG/DL (74-106) Calcium Level 9.3 MG/DL (8.5-10.1) Phosphorus Level 2.9 MG/DL (2.5-4.9) Magnesium Level 3.3 MG/DL (1.8-2.4) H Total Bilirubin 0.4 MG/DL (0.2-1.0) Aspartate Amino Transf (AST/SGOT) 17 U/L (15-37) Alanine Aminotransferase (ALT/SGPT) < 6 U/L (12-78) L Alkaline Phosphatase 180 U/L (46-116) H Total Protein 7.4 G/DL (6.4-8.2) Albumin 1.9 G/DL (3.4-5.0) L Globulin 5.5 g/dL Albumin/Globulin Ratio 0.3 (1.0-2.7) L Plan Problems: (1) Dehydration (2) Acidosis (3) Depression (4) Pleural effusion (5) Respiratory failure (6) Schizophrenia (7) Hypoxia (8) UTI (urinary tract infection) (9) Pneumonia (10) NSTEMI (non-ST elevated myocardial infarction) (11) Tracheostomy in place (12) Feeding by G-tube (13) JAVIER (acute kidney injury) (14) Acute encephalopathy (15) Sacral decubitus ulcer, stage IV (16) Chronic respiratory failure (17) Ascites (18) Bacteremia (19) Hypernatremia (20) Proteinuria (21) Electrolyte imbalance (22) ACS (acute coronary syndrome) (23) Aortic dissection, thoracic (24) Respiratory failure, acute and chronic (25) JAVIER (acute kidney injury) (26) Abrasion of lip, initial encounter (27) COPD with exacerbation (28) Elevated alkaline phosphatase level (29) Renal failure (ARF), acute on chronic (30) HCAP (healthcare-associated pneumonia) (31) GT CLOGGED (32) Elevated lipase (33) Pancreatitis (34) Elevated troponin (35) Hypokalemia (36) Hyponatremia (37) Anemia (38) Renal failure (39) ARF (acute renal failure) (40) Pacemaker (41) Sepsis Assessment & Plan: leukocytosis anemia on HD renal insufficiency wounds addressed pancreatitis cont diet as tolerating trend labs lf'ts okay bleeding from permacath site suture used and hemostasis obtained plan removal of fem line if stable tomorrow pt presented on admission with Tracheostomy ,GT and Multiple Pressure Injuries. Skin assessment of skin under tracheal collar without evidence of skin breakdown. Peristomal GT site excoriated.Moderate amt of dark red sanguineous e xudate. Full Thickness Sacral Pressure Injury with undermined borders (L)9 cm x (W)12cm x (D)1.8cm,Undermining clockwise8-9 by 2.2cm @1o'clock,undermining clockwise 1-4 by 1.9 @ 9'oclock Scattered necrotic tissue within wound bed. Borders are loose and necrotic with marginal erythema to outer perimeter of wound. NO elevation in skin temp noted periwound. Wound is malodorous. Small amt Brown exudate noted. Resolving Pressure Injury L Ischium(L)1.5cm x (W)1.5cm. Base of wound is 80% pink epithelial with an area that is moist and pink. NO odor or exudate noted. Bilat foot-drop noted. L Heel is boggy with non-blanchable erythema(L)4cm x (W)4cm. R heel is boggy with non-Blanchable erythema(L)5cm x (W)6cm. Tx.Plan: Cleanse sacral wound with Dakin's 0.125% annie. Loosely pack with Dakin's moistened Kerlix(Attention to undermined borders). Apply Moisture Barrier Paste periwound. Cover with Optifoam drsg. Change Daily and PRN. Apply Cavilon Skin Barrier to R and L Hels. Cover each heel with O ptifoam drsg. Change every 7 days and prn. Reposition at least every 2hours or as tolerated. Off-load heels with Pillow. APM/JENNIFER MAttress overlay DAILY ESTIMATED NEEDS: Needs based on Critical care, wound, renal dysfunction 56 kg abw 28-33 kcals/kg [id number] total kcals W/ HD (1.5-2.0) g protein/kg 84-112 g total protein Fluid per MD NUTRITION DIAGNOSIS: * Swallowing difficulty R/T dysphagia, respiratory status as evidenced by vent dep via trach, GT Dep. * Increase kcal and pro needs r/t wound healing, renal dysfunction as evidenced by admitted w/ stage 4 sacral wound, admitted w/ JAVIER, now on HD. CURRENT TF: Nepro @ 40ml/hr x 24 hrs-> now @35ml/hr ENTERAL NUTRITION RECOMMENDATIONS: Nepro @ 40ml/hr x 24 hrs + Prosource 1pkt QD to provide 960ml, 1728kcal, 78g+11g prot, 698ml free water * As medically appropriate, increase TF goal rate to 40ml/hr x 24 hrs * Add Prosource 1pkt QD to better meet increased protein needs (additional 11g prot) * Water flush per MD/ HOB over 30 degrees ADDITIONAL RECOMMENDATIONS: * Per SNF in NOV 2019: HT=63"/ Rec daily calibrated bedscale wt * Monitor for continuity of HD, last HD 02/07 * Rec phos binders- consistently elevated phos level -> now wnl * Wound care: add Nephrovite x 1, ZnSO4 220mg QD x 10 days Reynaldo BID via PEG (mix w/ 2-4 oz water); vit C per nephro * Monitor TF tolerance: TF lowered for GT leak, increase as able * Add bowel regimen: now added, last BM 02/09 (42) Hyponatremia Lane Saavedra Feb 14, 2020 13:32
--- NOTE | 2020-02-14 13:37 | NUR ---
NURSE NOTES: Again called Dr Houston regarding K 3.3 NA 131 MG 3.3 and other lab results and V/S, Waiting to call back. will continue to monitor.
[2020-02-14] MEDS ORDERED: NaCl 3% 500ml 250 ML IV SCH (15:00)
--- NOTE | 2020-02-14 15:01 | NUR ---
CASE MANAGEMENT: REVIEW 02/14/2020 SI:SEPSIS. ACUTE PANCREATITIS VS: T 97.9 HR 67 RR 16 B/P 148/57 SATS 98% ON MECH VENT FIO2 40 LABS: NA 131 K 3.3 CL 95 BUN 85 CR 3.9 MG 3.3 ALT <6 ALT 180 IS:SYMMETREL GT BID LIPITOR PO QHS NORVASC GT BID ASA GT QD LOPRESSOR PO Q12H LACTULOSE GT TID HYDRALAZINE GT Q6H SDU
--- NOTE | 2020-02-14 15:32 | NUR ---
NURSE NOTES: Dr Muhammad is aware Noro5 is and pt needs it,ordered to renew norco, noted and carried out. will continue to monitor.
--- NOTE | 2020-02-14 15:36 | Pulmonology Progress Note ---
Subjective ROS Limited/Unobtainable: Yes Interval Events: s/p transfusion Constitutional: Reports: no symptoms HEENT: Repors: no symptoms Respiratory: Reports: no symptoms Cardiovascular: Reports: no symptoms Gastrointestinal/Abdominal: Reports: no symptoms Allergies: Coded Allergies: No Known Allergies (Unverified , 10/10/17) All Systems: reviewed and negative except above Objective Last 24 Hour Vital Signs Date Time Temp Pulse Resp B/P (MAP) Pulse Ox O2 Delivery O2 Flow Rate FiO2 02/14/20 12:18 148/57 02/14/20 12:17 148/57 02/14/20 12:00 40 02/14/20 12:00 97.9 67 16 148/57 (87) 98 02/14/20 09:01 149/70 02/14/20 09:00 73 149/70 02/14/20 09:00 73 149/70 02/14/20 08:58 97.9 73 25 149/70 (96) 97 02/14/20 08:10 80 02/14/20 08:00 40 02/14/20 07:29 70 26 40 02/14/20 05:23 149/70 02/14/20 04:14 73 02/14/20 04:00 Mechanical Ventilator Mechanical Ventilator 02/14/20 04:00 40 02/14/20 04:00 97.9 73 25 149/70 (96) 97 02/14/20 03:24 73 23 40 02/14/20 00:00 Mechanical Ventilator Mechanical Ventilator 02/14/20 00:00 40 02/14/20 00:00 98.4 75 16 144/66 (92) 97 02/13/20 23:46 144/66 02/13/20 23:41 72 02/13/20 23:21 78 31 40 02/13/20 20:23 68 139/71 02/13/20 20:00 Mechanical Ventilator Mechanical Ventilator 02/13/20 20:00 98.1 68 19 139/71 (93) 98 02/13/20 20:00 40 02/13/20 19:30 60 02/13/20 19:30 58 14 40 02/13/20 17:17 59 134/61 02/13/20 17:16 116/79 02/13/20 17:16 134/61 02/13/20 16:46 40 02/13/20 16:41 Mechanical Ventilator Mechanical Ventilator 02/13/20 16:39 59 Intake and Output 02/13/20 02/14/20 19:00 07:00 Intake Total 540 ml 600 ml Output Total 650 ml 450 ml Balance -110 ml 150 ml Free Water 100 ml 250 ml Tube Feeding 140 ml 350 ml Blood Product 300 ml Output Urine Total 650 ml 450 ml General Appearance: no acute distress HEENT: normocephalic, other - trach Respiratory: chest wall non-tender, other - coarse lung sounds Cardiovascular: normal rate, regular rhythm Abdomen: soft, non tender Genitourinary: other - Norman Extremities: other - trace edema Laboratory Tests 02/14/20 01:04: POC Whole Blood Glucose 108H 02/14/20 03:10: White Blood Count 10.3, Red Blood Count 3.33L, Hemoglobin 9.2#L, Hematocrit 28.3L, Mean Corpuscular Volume 85, Mean Corpuscular Hemoglobin 27.7, Mean Corpuscular Hemoglobin Concent 32.6, Red Cell Distribution Width 14.8, Platelet Count 311, Mean Platelet Volume 5.3L, Neutrophils (%) (Auto) 75.0, Lymphocytes (%) (Auto) 17.3L, Monocytes (%) (Auto) 5.6, Eosinophils (%) (Auto) 1.6, Basophils (%) (Auto) 0.5, Sodium Level 131L, Potassium Level 3.3L, Chloride Level 95L, Carbon Dioxide Level 26, Anion Gap 10, Blood Urea Nitrogen 85H, Creatinine 3.9H, Estimat Glomerular Filtration Rate 12.4, Glucose Level 102, Calcium Level 9.3, Phosphorus Level 2.9, Magnesium Level 3.3H, Total Bilirubin 0.4, Aspartate Amino Transf (AST/SGOT) 17, Alanine Aminotransferase (ALT/SGPT) < 6L, Alkaline Phosphatase 180H, Total Protein 7.4, Albumin 1.9L, Globulin 5.5, Albumin/Globulin Ratio 0.3L 02/14/20 06:24: POC Whole Blood Glucose 117H 02/14/20 12:48: POC Whole Blood Glucose 111H Current Medications Medications (Trade) Dose Ordered Sig/Penny Route PRN Reason Start Time Stop Time Status Last Admin Dose Admin Acetaminophen (Tylenol) 500 mg Q6H PRN GT FEVER 01/21/20 20:45 02/20/20 20:44 02/12/20 00:42 Acetaminophen (Tylenol) 650 mg Q6H PRN GT Mild Pain (Pain Scale 1-3) 02/09/20 17:15 03/10/20 17:14 02/09/20 17:39 Acetaminophen/ Hydrocodone Bitart ([place] 5/325) 1 tab Q6H PRN GT moderate-severe pain (7-10) 02/14/20 15:30 02/21/20 15:29 Amantadine HCl (Symmetrel) 100 mg TWICE A DAY GT 01/31/20 18:00 03/01/20 17:59 02/14/20 09:00 Amlodipine Besylate (Norvasc) 5 mg BID GT 01/22/20 18:00 02/20/20 15:44 02/14/20 09:00 Aspirin (ASA) 81 mg DAILY GT 01/20/20 09:00 03/05/20 08:59 02/14/20 09:00 Atorvastatin Calcium (Lipitor) 10 mg BEDTIME GT 01/17/20 21:00 04/16/20 20:59 02/13/20 20:23 Chlorhexidine Gluconate (Ling-Hex 2%) 1 applic DAILY@1999 TOPIC 01/17/20 20:00 04/16/20 19:59 02/13/20 20:22 Dextrose (Dextrose 50%) 25 ml Q30M PRN IV Hypoglycemia 01/15/20 22:15 04/14/20 22:14 Dextrose (Dextrose 50%) 50 ml Q30M PRN IV Hypoglycemia 01/15/20 22:15 04/14/20 22:14 01/22/20 17:54 Docusate Sodium (Colace) 200 mg BIDPRN PRN GT Constipation 01/31/20 07:45 03/01/20 07:44 02/04/20 11:21 Epoetin Gelacio (Epoetin Gelacio(ESRD on dialysis)) 10,000 unit MON-MON-MON SUBQ 01/27/20 21:00 04/26/20 20:59 02/12/20 21:35 Hydralazine HCl (Apresoline) 25 mg Q6HR GT 01/26/20 18:15 04/25/20 18:14 02/14/20 12:18 Isosorbide Dinitrate (Isordil) 20 mg TID GT 01/25/20 09:00 02/19/20 08:59 02/14/20 12:17 Lactulose (Cephulac) 20 gm THREE TIMES A DAY GT 02/04/20 13:00 03/05/20 12:59 02/14/20 12:17 Lansoprazole (Prevacid) 30 mg BID GT 01/19/20 18:00 02/18/20 17:59 02/14/20 09:00 Metoclopramide HCl (Reglan) 5 mg Q6HR IVP 02/05/20 07:00 03/06/20 06:59 02/14/20 12:18 Metoprolol Tartrate (Lopressor) 25 mg Q12HR ORAL 01/27/20 21:00 04/22/20 20:59 02/14/20 09:00 Polyethylene Glycol (Miralax) 17 gm BEDTIME GT 02/04/20 21:00 03/05/20 20:59 02/13/20 20:22 Potassium Chloride 100 ml @ 100 mls/hr Q1H IVPB 02/14/20 14:15 02/14/20 16:14 02/14/20 14:15 Sodium Hypochlorite (Dakin's Quarter Strength) 1 applic DAILY TOPIC 01/30/20 09:00 02/29/20 08:59 02/14/20 09:01 Sodium Chloride 250 ml @ 30 mls/hr ONCE IV 02/14/20 15:00 02/14/20 23:19 02/14/20 15:28 Zinc Oxide (Zinc Oxide) 1 applic TIDPRN PRN TOPIC diogenes GT 01/16/20 13:15 04/15/20 13:14 01/16/20 14:55 Assessment/Plan Assessment/Plan Assessment/Plan 1. Large left effusion. - S/p thoracentesis; CXR better - pleural fluid pathology report: negative for malignant cell 2. Chronic respiratory failure. - Continue trach care - Cont AC mode - Currently saturating at 97% 3. Sepsis; improving 4. Anemia - improving - s/p transfusion - s/p Epogen s/p HD on broad-spectrum antibiotics. Pulmonary hygiene. DVT and GI prophylaxes. Dc planning in place FiO2 increased previously to 60%; now decreased to 40%; will wean further as tolerated The patient was seen and examined at bedside and all new and available data was reviewed in the patients chart. I agree with the above findings, impression, and plan. (Patient was seen earlier today. Signature timestamp does not reflect patient encounter time) Elijah Hickman MD, MD Feb 14, 2020 15:36
[2020-02-14] MEDS: HYDROcodone/Acetamin 5/325 tab GT PRN ×2 (15:42→22:18)
[2020-02-14 16:00] VITALS: BP 138/80
--- NOTE | 2020-02-14 17:00 | NUR ---
NURSE NOTES: wound treatment done as order and g tube dressing changed and pt tolerated well. will continue to monitor.
--- NOTE | 2020-02-14 17:05 | Nephrology Progress Note ---
Assessment/Plan Problem List: (1) ARF (acute renal failure) (2) Pacemaker (3) Sepsis (4) Hyponatremia Assessment (1) JAVIER (acute kidney injury) (2) Renal failure (ARF), acute on chronic (3) Feeding by G-tube (4) Tracheostomy in place (5) Electrolyte imbalance, hyponatremia (6) Anemia, severe (7) Respiratory failure, acute and chronic (8) Elevated lipase, pancreatitis (9) Elevated troponin I (10) Sepsis Plan February 13: Hemoglobin up to 9.2. Low potassium and low sodium addressed. Continue to monitor renal parameters. Hemodialysis as needed. February 12: Labs reviewed. Hemoglobin 6.8. Creatinine 3.7 and stable. Transfusion will defer to Dr. Radford. Continue to monitor CBC and CHEM panel. February 11: Labs reviewed. Serum creatinine 3.6. Low potassium addressed. Dialysis as needed. Will monitor renal parameters. February 10: Labs reviewed. Potassium replaced. Serum sodium 132. Check labs tomorrow. Dialysis as needed. February 09: No labs drawn today. Last dialysis February 07. Will check lab tomorrow. Hemodialysis as needed. February 08: Labs reviewed. Dialyzed yesterday. Stable from renal standpoint of view. Continue to monitor electrolytes and order dialysis as needed. February 07: Labs reviewed. Due for dialysis today. Continue per consultants. February 06: Labs reviewed. Last dialysis February 03. Will postpone today's dialysis to tomorrow. Continue per current treatment plan. February 05: Labs reviewed. Last dialysis February 03. Will order dialysis tomorrow. Waiting for tunneled catheter placement. February 04: Labs reviewed. Dialyzed yesterday. With a plan for insertion of a tunneled dialysis catheter and discontinue left groin dialysis catheter afterwards. Check labs in a.m. Discussed with Dr. Dong. February 03: Labs reviewed. Due for dialysis today. Continue per consultants. February 02: Labs reviewed. Will order dialysis tomorrow. Continue per consultants. February 01: Labs reviewed. Creatinine gradually rising. Will dialyze as needed. Continue to monitor renal parameters. January 31: Last dialysis January 29. Labs reviewed. No need for dialysis today. Continue per current management. Hemodialysis as needed. Will check renal parameters and chemistries tomorrow. January 30: Patient was dialyzed yesterday. No labs drawn today. Continue to monitor renal parameters and dialyze as needed. Continue per consultants and PMD. January 29: Patient due for dialysis today. Today's can panel reviewed. Continue to monitor renal parameters and dialysis as needed. January 28: Patient last dialyzed January 26. No labs drawn today. Will order dialysis tomorrow. Check chemistry panel tomorrow. Continue per consultants. January 27: Patient was dialyzed yesterday . Labs were reviewed. Electrolytes within normal limit. Blood pressure stable. January 26: When visited the patient earlier today the patient was on dialysis. Tolerating well. Labs reviewed. Blood pressure stable. January 25: Dialysis for tomorrow. Labs reviewed. Hemoglobin remains low. Will adjust blood pressure medication. Hydralazine added to the regimen January 24: Last dialyzed January 22. Labs reviewed. Status quo. Will dialyze as needed. Low hemoglobin noted. Transfusion per PMD decision. Epogen started. \January 23: Dialyzed yesterday. Today's labs reviewed. Continue to monitor renal parameters and arrange for dialysis as needed. Continue per PMD. January 22: Seen earlier during dialysis. Labs reviewed. Medication list reviewed. Continue current management. January 21: Labs reviewed. Medication list reviewed. Next hemodialysis tomorrow. Blood pressure medication adjusted. January 20: Dialyzed yesterday. Labs reviewed. Continue per current management. Dialysis as needed. Add Norvasc to blood pressure regimen January 19: Due for dialysis today. Labs reviewed. Continue her current management. Continue to monitor renal parameters and electrolytes. January 18: Dialyzed yesterday. Labs reviewed. Renal parameters electrolytes much improved. Dialysis again tomorrow. Continue rest. January 17: Dialyzed this morning. Labs reviewed. Renal parameters and electrolyte abnormalities improved. Discussed with RN. Continue per consulta nts. January 16: Dialyzed yesterday. Labs improved. Next dialysis tomorrow. Continue per consultants. January 15: Patient to have dialysis catheter. Emergency dialysis for correction of uremia and electrolyte imbalances Antibiotics Transfusion Continue to monitor renal parameters Per orders Discussed with RN Subjective ROS Limited/Unobtainable: Yes Objective Objective Last 24 Hour Vital Signs Date Time Temp Pulse Resp B/P (MAP) Pulse Ox O2 Delivery O2 Flow Rate FiO2 02/14/20 16:00 98.7 74 20 138/80 (99) 99 02/14/20 16:00 40 02/14/20 15:29 75 02/14/20 12:18 148/57 02/14/20 12:17 148/57 02/14/20 12:00 Mechanical Ventilator Mechanical Ventilator 02/14/20 12:00 40 02/14/20 12:00 97.9 67 16 148/57 (87) 98 02/14/20 11:48 68 02/14/20 09:01 149/70 02/14/20 09:00 73 149/70 02/14/20 09:00 73 149/70 02/14/20 08:58 97.9 73 25 149/70 (96) 97 02/14/20 08:10 80 02/14/20 08:00 Mechanical Ventilator Mechanical Ventilator 02/14/20 08:00 40 02/14/20 07:29 70 26 40 02/14/20 05:23 149/70 02/14/20 04:14 73 02/14/20 04:00 Mechanical Ventilator Mechanical Ventilator 02/14/20 04:00 40 02/14/20 04:00 97.9 73 25 149/70 (96) 97 02/14/20 03:24 73 23 40 02/14/20 00:00 Mechanical Ventilator Mechanical Ventilator 02/14/20 00:00 40 02/14/20 00:00 98.4 75 16 144/66 (92) 97 02/13/20 23:46 144/66 02/13/20 23:41 72 02/13/20 23:21 78 31 40 02/13/20 20:23 68 139/71 02/13/20 20:00 Mechanical Ventilator Mechanical Ventilator 02/13/20 20:00 98.1 68 19 139/71 (93) 98 02/13/20 20:00 40 02/13/20 19:30 60 02/13/20 19:30 58 14 40 02/13/20 17:17 59 134/61 02/13/20 17:16 116/79 02/13/20 17:16 134/61 Intake and Output 02/13/20 02/14/20 19:00 07:00 Intake Total 540 ml 600 ml Output Total 650 ml 450 ml Balance -110 ml 150 ml Free Water 100 ml 250 ml Tube Feeding 140 ml 350 ml Blood Product 300 ml Output Urine Total 650 ml 450 ml Laboratory Tests 02/14/20 01:04: POC Whole Blood Glucose 108H 02/14/20 03:10: White Blood Count 10.3, Red Blood Count 3.33L, Hemoglobin 9.2#L, Hematocrit 28.3L, Mean Corpuscular Volume 85, Mean Corpuscular Hemoglobin 27.7, Mean Corpuscular Hemoglobin Concent 32.6, Red Cell Distribution Width 14.8, Platelet Count 311, Mean Platelet Volume 5.3L, Neutrophils (%) (Auto) 75.0, Lymphocytes (%) (Auto) 17.3L, Monocytes (%) (Auto) 5.6, Eosinophils (%) (Auto) 1.6, Basophils (%) (Auto) 0.5, Sodium Level 131L, Potassium Level 3.3L, Chloride Level 95L, Carbon Dioxide Level 26, Anion Gap 10, Blood Urea Nitrogen 85H, Creatinine 3.9H, Estimat Glomerular Filtration Rate 12.4, Glucose Level 102, Calcium Level 9.3, Phosphorus Level 2.9, Magnesium Level 3.3H, Total Bilirubin 0.4, Aspartate Amino Transf (AST/SGOT) 17, Alanine Aminotransferase (ALT/SGPT) < 6L, Alkaline Phosphatase 180H, Total Protein 7.4, Albumin 1.9L, Globulin 5.5, Albumin/Globulin Ratio 0.3L 02/14/20 06:24: POC Whole Blood Glucose 117H 02/14/20 12:48: POC Whole Blood Glucose 111H 02/14/20 16:51: POC Whole Blood Glucose 100 Height (Feet): 5 Height (Inches): 6.00 Weight (Pounds): 150 General Appearance: no apparent distress EENT: other - Trach to vent Cardiovascular: normal rate Respiratory/Chest: decreased breath sounds Abdomen: distended Objective No change Johnny Houston MD Feb 14, 2020 17:05
--- NOTE | 2020-02-14 19:48 | NUR ---
NURSE HAND-OFF REPORT: Important Events on Shift: Patient Status: Diet: Pending Orders: Pending Results/Labs: Pending MD notification: Latest Vital Signs: Temperature 98.7 , Pulse 74 , B/P 138 /80 , Respiratory Rate 20 , O2 SAT 99 , Mechanical Ventilator, O2 Flow Rate . Vital Sign Comment: EKG Rhythm: Sinus Rhythm Rhythm change?: N MD Notified?: N -Dr. Екатерина HATFIELD Response: Order Received& Read Back Latest Chavarria Fall Score: 70 Fall Risk: High Risk Safety Measures: Call light Within Reach, Bed Alarm Zone 1, Side Rails Side Rails x2, Bed position Low and Locked. Fall Precautions: Yellow Socks Report given to .Pt is awake and stable, no stress noted, endorsed plan of care, endorsed to F/U OB.
[2020-02-14 20:00] VITALS: BP 124/72
[2020-02-14] MEDS: Dyna-Hex 2% Top Sol 2oz TOPIC SCH (20:00)
[2020-02-14] MEDS: Epoetin Alfa-EPBX(ESRD on dialysis)2000 units/ml vial SUBQ SCH (21:57)
[2020-02-14] MEDS: Miralax 17gm pkt GT SCH (21:57)
[2020-02-14] MEDS: Epoetin Alfa-EPBX(ESRD on dialysis)4000 units/ml vial SUBQ SCH (21:57)
[2020-02-15] VITALS (7 sets, daily range): BP systolic 113–145; BP diastolic 62–99
[2020-02-15] MEDS: Metoclopramide 10mg/2ml Inj IVP SCH ×3 (01:42→12:44)
[2020-02-15 05:19] LABS: BASOPHILS % (AUTO) 1.1 % (0.0-2.0); EOSINOPHILS % (AUTO) 2.8 % (0.0-3.0); HEMATOCRIT 26.6 % (37.0-47.0); HEMOGLOBIN 8.3 G/DL (12.0-16.0); LYMPHOCYTES % (AUTO) 19.2 % (20.0-45.0); MEAN CORPUSCULAR VOLUME 88 FL (80-99); MONOCYTES % (AUTO) 5.6 % (1.0-10.0); NEUTROPHILS % (AUTO) 71.3 % (45.0-75.0); PLATELET COUNT 292 K/UL (150-450); RED BLOOD COUNT 3.02 M/UL (4.20-5.40); RED CELL DISTRIBUTION WIDTH 14.7 % (11.6-14.8); WHITE BLOOD COUNT 9.5 K/UL (4.8-10.8)
[2020-02-15 05:20] LABS: ALANINE AMINOTRANSFERASE < 6 U/L (12-78); ALBUMIN 1.8 G/DL (3.4-5.0); ALBUMIN/GLOBULIN RATIO 0.4 (1.0-2.7); ALKALINE PHOSPHATASE 151 U/L (46-116); ASPARTATE AMINO TRANSFERASE 18 U/L (15-37); BILIRUBIN,TOTAL 0.3 MG/DL (0.2-1.0); BLOOD UREA NITROGEN 81 mg/dL (7-18); CALCIUM 9.5 MG/DL (8.5-10.1); CARBON DIOXIDE 28 MMOL/L (21-32); CREATININE 3.9 MG/DL (0.55-1.30); PHOSPHORUS 3.2 MG/DL (2.5-4.9); POTASSIUM 3.3 MMOL/L (3.5-5.1); SODIUM 134 MMOL/L (136-145)
[2020-02-15 06:03] LABS: CHLORIDE 98 MMOL/L (98-107)
--- NOTE | 2020-02-15 07:00 | NUR ---
RESPIRATORY NOTE: PT RECEIVED STABLE ON CMV WITH CURRENT SETTINGS: AC/VC 14, 500, 40%, +5. ALARMS ARE ON AND AUDIBLE. VENT CIRCUIT IS SECURE AND OUT OF THE WAY. AIRWAY IS MIDLINE SECURE AND PATENT. NO S/S OF RESPIRATORY DISTRESS NOTED AT THIS TIME WILL CONTINUE TO CLOSELY MONITOR.
[2020-02-15] MEDS: HydrALAZINE 25mg tab GT SCH ×4 (07:06→17:56)
--- NOTE | 2020-02-15 07:50 | NUR ---
NURSE NOTES: Received report from ERASMO Huggins. Patient is on bed, no signs of distress noted. Patient is on trache to vent S6, TV 500, AC 14, FiO2 40%, PEEP 5, tolerating well. Patient has a GT, patent, intact, running nepro at 35 cc/hr, patent, intact, tolerating well. Patient has a L wrist 22 g, patent, intact, saline locked, and a R H 22 g, patent, intact, saline locked. HOB elevated, bed is on lowest position, side rails up, locked. Patient will continue to be monitored.
--- NOTE | 2020-02-15 08:00 | NUR ---
NURSE HAND-OFF REPORT: Important Events on Shift: none Patient Status: full code Diet: nephro GT Pending Orders: none Pending Results/Labs: none Pending MD notification: none Latest Vital Signs: Temperature 98.0 , Pulse 66 , B/P 128 /62 , Respiratory Rate 15 , O2 SAT 98 , Mechanical Ventilator, O2 Flow Rate . Vital Sign Comment: EKG Rhythm: Sinus Rhythm Rhythm change?: N MD Notified?: N -Dr. Екатерина HATFIELD Response: Order Received& Read Back Latest Chavarria Fall Score: 70 Fall Risk: High Risk Safety Measures: Call light Within Reach, Bed Alarm Zone 1, Side Rails Side Rails x2, Bed position Low and Locked. Fall Precautions: Yellow Socks Report given to Maria Fernanda Phillips RN Addendum: 02/15/20 at 0803 by Heidi Leary RN CORRECTION Report given to Louis Austin RN
[2020-02-15] MEDS: Lactulose 20gm/30ml UDC GT SCH ×3 (08:22→17:55)
[2020-02-15] MEDS: Aspirin Baby 81mg GT SCH (08:23)
[2020-02-15] MEDS: Amantadine 100mg cap GT SCH ×2 (08:23→17:55)
[2020-02-15] MEDS: HYDROcodone/Acetamin 5/325 tab GT PRN ×2 (08:25→22:43)
[2020-02-15] MEDS: Dakin's 0.125% Soln (Quarter Strength) 16oz TOPIC SCH (08:26)
--- NOTE | 2020-02-15 10:08 | NUR ---
CASE MANAGEMENT: REVIEW 02/15/2020 SI:SEPSIS. ACUTE PANCREATITIS VS: T 98 HR 66 RR 15 B/P 128/62 SATS 98% ON MECH VENT FIO2 40 LABS: NA 134 K 3.3 BUN 81 CR 3.9 MG 3.4 ALP 151 CRP 15.2 IS:SYMMETREL GT BID LIPITOR PO QHS NORVASC GT BID ASA GT QD LOPRESSOR PO Q12H LACTULOSE GT TID HYDRALAZINE GT Q6H SDU
--- NOTE | 2020-02-15 10:40 | Hematology/Onc Progress Note ---
Assessment/Plan Assessment/Plan IM note Covering for Dr. Dong Assessment and Recs # Leukocytosis, now with pna v other process --> Cxr: : Large left pleural effusion, Bilateral interstitial and airspace infiltrates versus edema --> wbc 16-->26->30-->10->8 --> ABX zosyn-->angelo/vanc-->angelo/tobra->off --> ID recs are noted --> smear has been reviewed # Anemia of chronic disease due to underlying chronic medical issues, multifactorial --> Anemia workup has been reviewed, cw acd --> No evidence of hemolysis is noted, peripheral smear has been reviewed. --> Hgb goal >7. Transfuse prn. --> Epogen required, to continue --> Medications have been reviewed --> low threshold for gi evaluation in case has occult + --> hgb 7.1-->7.8-->>>5.9-->7.3-->7-->7.2-->7.9-->8.6-->8.2-->8.5-->7->8.5->6.8-->9.2 --> 1 unit prbc1/, 2 units 01/15. 02/06, 02/12 --> gi eval as needed # Coagulopathy with inr 1.5 --> consider vit k/ffp as needed preprocedure --> labs noted # JAVIER initially >2 --> on ivfs --> per renal # Elevated d-dimer --> venous duplex ordered-->reviewed, is neg --> in prior neg # Dysphagia s/p peg --> as per gi # Thoracic aortic dissection --> s/p repair early 2017 # Chronic Resp failure -> s/p trach/vent # Psychiatric history on ativan/haldol # [place] resident # Dvt ppx --> scds The timing of this note does not necessarily reflect the time of the patient was seen. Greatly appreciate consultation. Subjective Allergies: Coded Allergies: No Known Allergies (Unverified , 10/10/17) Subjective Subjective: 02/[address] still with bleed dw Rn, will place seal/further pressure 02/08 labs reviewed, grimacing, meds noted, vitals noted, seen by cards 02/09 on vent, meds reviewed, hd as per renal, labs pending 02/10 vent, comfortable, no bleeding or chills, hgb stable 02/11 nv, on vent, hgb 8.5, no new events, stable, dw Rn 02/12 nv, trach to vent, hgb 6.8 to get 1 unit prbc 02/13 nv, labs reviewed, hgb has improved, remains on a vent 02/14: dominic cute evnts, no bleeding reported Objective Objective Current Medications Medications (Trade) Dose Ordered Sig/Penny Route PRN Reason Start Time Stop Time Status Last Admin Dose Admin Acetaminophen (Tylenol) 500 mg Q6H PRN GT FEVER 01/21/20 20:45 02/20/20 20:44 02/12/20 00:42 Acetaminophen (Tylenol) 650 mg Q6H PRN GT Mild Pain (Pain Scale 1-3) 02/09/20 17:15 03/10/20 17:14 02/09/20 17:39 Acetaminophen/ Hydrocodone Bitart (Jackson 5/325) 1 tab Q6H PRN GT moderate-severe pain (7-10) 02/14/20 15:30 02/21/20 15:29 02/15/20 08:25 Amantadine HCl (Symmetrel) 100 mg TWICE A DAY GT 01/31/20 18:00 03/01/20 17:59 02/15/20 08:23 Amlodipine Besylate (Norvasc) 5 mg BID GT 01/22/20 18:00 02/20/20 15:44 02/15/20 08:24 Aspirin (ASA) 81 mg DAILY GT 01/20/20 09:00 03/05/20 08:59 02/15/20 08:23 Atorvastatin Calcium (Lipitor) 10 mg BEDTIME GT 01/17/20 21:00 04/16/20 20:59 02/14/20 21:58 Chlorhexidine Gluconate (Ling-Hex 2%) 1 applic DAILY@1999 TOPIC 01/17/20 20:00 04/16/20 19:59 02/14/20 20:00 Dextrose (Dextrose 50%) 25 ml Q30M PRN IV Hypoglycemia 01/15/20 22:15 04/14/20 22:14 Dextrose (Dextrose 50%) 50 ml Q30M PRN IV Hypoglycemia 01/15/20 22:15 04/14/20 22:14 01/22/20 17:54 Docusate Sodium (Colace) 200 mg BIDPRN PRN GT Constipation 01/31/20 07:45 03/01/20 07:44 02/04/20 11:21 Epoetin Gelacio (Epoetin Gelacio(ESRD on dialysis)) 2,000 unit MON-MON-MON SUBQ 02/14/20 21:00 05/14/20 20:59 02/14/20 21:57 Epoetin Gelacio (Epoetin Gelacio(ESRD on dialysis)) 8,000 unit MON-MON-MON SUBQ 02/14/20 21:00 05/14/20 20:59 02/14/20 21:57 Hydralazine HCl (Apresoline) 25 mg Q6HR GT 01/26/20 18:15 04/25/20 18:14 02/15/20 07:06 Isosorbide Dinitrate (Isordil) 20 mg TID GT 01/25/20 09:00 02/19/20 08:59 02/15/20 08:23 Lactulose (Cephulac) 20 gm THREE TIMES A DAY GT 02/04/20 13:00 03/05/20 12:59 02/15/20 08:22 Lansoprazole (Prevacid) 30 mg BID GT 01/19/20 18:00 02/18/20 17:59 02/15/20 08:23 Metoclopramide HCl (Reglan) 5 mg Q6HR IVP 02/05/20 07:00 03/06/20 06:59 02/15/20 07:07 Metoprolol Tartrate (Lopressor) 25 mg Q12HR ORAL 01/27/20 21:00 04/22/20 20:59 02/15/20 08:23 Polyethylene Glycol (Miralax) 17 gm BEDTIME GT 02/04/20 21:00 03/05/20 20:59 02/14/20 21:57 Sodium Hypochlorite (Dakin's Quarter Strength) 1 applic DAILY TOPIC 01/30/20 09:00 02/29/20 08:59 02/15/20 08:26 Zinc Oxide (Zinc Oxide) 1 applic TIDPRN PRN TOPIC diogenes GT 01/16/20 13:15 04/15/20 13:14 01/16/20 14:55 Last 24 Hour Vital Signs Date Time Temp Pulse Resp B/P (MAP) Pulse Ox O2 Delivery O2 Flow Rate FiO2 02/15/20 08:24 75 126/62 02/15/20 08:23 75 126/62 02/15/20 08:23 126/62 02/15/20 07:50 72 02/15/20 07:06 128/62 02/15/20 04:00 Mechanical Ventilator Mechanical Ventilator 02/15/20 04:00 Mechanical Ventilator Mechanical Ventilator 02/15/20 04:00 98.0 66 15 128/62 (84) 98 02/15/20 04:00 40 02/15/20 04:00 72 02/15/20 01:00 67 16 40 02/15/20 00:00 61 02/15/20 00:00 40 02/15/20 00:00 117/67 02/15/20 00:00 98.1 61 15 117/67 (84) 98 02/15/20 00:00 Mechanical Ventilator Mechanical Ventilator 02/14/20 22:48 98.1 02/14/20 21:57 75 124/72 02/14/20 20:00 Mechanical Ventilator Mechanical Ventilator 02/14/20 20:00 40 02/14/20 20:00 97.7 75 17 124/72 (89) 100 02/14/20 20:00 75 02/14/20 19:00 67 16 40 02/14/20 18:22 138/80 02/14/20 18:22 138/80 02/14/20 18:22 74 138/80 02/14/20 16:00 Mechanical Ventilator Mechanical Ventilator 02/14/20 16:00 98.7 74 20 138/80 (99) 99 02/14/20 16:00 40 02/14/20 15:29 75 02/14/20 13:26 72 29 40 02/14/20 12:18 148/57 02/14/20 12:17 148/57 02/14/20 12:00 Mechanical Ventilator Mechanical Ventilator 02/14/20 12:00 40 02/14/20 12:00 97.9 67 16 148/57 (87) 98 02/14/20 11:48 68 02/14/20 09:01 149/70 02/14/20 09:00 73 149/70 02/14/20 09:00 73 149/70 02/14/20 08:58 97.9 73 25 149/70 (96) 97 02/14/20 08:10 80 02/14/20 08:00 Mechanical Ventilator Mechanical Ventilator 02/14/20 08:00 40 02/14/20 07:29 70 26 40 02/14/20 05:23 149/70 02/14/20 04:14 73 02/14/20 04:00 Mechanical Ventilator Mechanical Ventilator 02/14/20 04:00 40 02/14/20 04:00 97.9 73 25 149/70 (96) 97 02/14/20 03:24 73 23 40 02/14/20 00:00 Mechanical Ventilator Mechanical Ventilator 02/14/20 00:00 40 02/14/20 00:00 98.4 75 16 144/66 (92) 97 02/13/20 23:46 144/66 02/13/20 23:41 72 02/13/20 23:21 78 31 40 02/13/20 20:23 68 139/71 02/13/20 20:00 Mechanical Ventilator Mechanical Ventilator 02/13/20 20:00 98.1 68 19 139/71 (93) 98 02/13/20 20:00 40 02/13/20 19:30 60 02/13/20 19:30 58 14 40 02/13/20 17:17 59 134/61 02/13/20 17:16 116/79 02/13/20 17:16 134/61 02/13/20 16:46 40 02/13/20 16:41 Mechanical Ventilator Mechanical Ventilator 02/13/20 16:39 59 02/13/20 15:34 97.7 65 14 134/61 (85) 99 02/13/20 13:02 70 21 40 02/13/20 12:44 130/68 02/13/20 12:44 130/68 02/13/20 12:00 64 02/13/20 12:00 98.1 60 20 130/68 (88) 99 02/13/20 12:00 40 02/13/20 12:00 Mechanical Ventilator Mechanical Ventilator Intake and Output 02/14/20 02/15/20 19:00 07:00 Intake Total 810 ml 585 ml Output Total 550 ml Balance 260 ml 585 ml Free Water 100 ml 200 ml IV Total 290 ml Tube Feeding 420 ml 385 ml Output Urine Total 550 ml Labs Test 02/13/20 02:50 02/13/20 05:29 02/14/20 01:04 02/14/20 03:10 White Blood Count 9.2 K/UL (4.8-10.8) 10.3 K/UL (4.8-10.8) Red Blood Count 2.48 M/UL (4.20-5.40) 3.33 M/UL (4.20-5.40) Hemoglobin 6.8 G/DL (12.0-16.0) 9.2 G/DL (12.0-16.0) Hematocrit 21.9 % (37.0-47.0) 28.3 % (37.0-47.0) Mean Corpuscular Volume 88 FL (80-99) 85 FL (80-99) Mean Corpuscular Hemoglobin 27.4 PG (27.0-31.0) 27.7 PG (27.0-31.0) Mean Corpuscular Hemoglobin Concent 31.1 G/DL (32.0-36.0) 32.6 G/DL (32.0-36.0) Red Cell Distribution Width 14.6 % (11.6-14.8) 14.8 % (11.6-14.8) Platelet Count 256 K/UL (150-450) 311 K/UL (150-450) Mean Platelet Volume 5.4 FL (6.5-10.1) 5.3 FL (6.5-10.1) Neutrophils (%) (Auto) % (45.0-75.0) 75.0 % (45.0-75.0) Lymphocytes (%) (Auto) % (20.0-45.0) 17.3 % (20.0-45.0) Monocytes (%) (Auto) % (1.0-10.0) 5.6 % (1.0-10.0) Eosinophils (%) (Auto) % (0.0-3.0) 1.6 % (0.0-3.0) Basophils (%) (Auto) % (0.0-2.0) 0.5 % (0.0-2.0) Differential Total Cells Counted 100 Neutrophils % (Manual) 70 % (45-75) Lymphocytes % (Manual) 21 % (20-45) Monocytes % (Manual) 4 % (1-10) Eosinophils % (Manual) 5 % (0-3) Basophils % (Manual) 0 % (0-2) Band Neutrophils 0 % (0-8) Platelet Estimate Adequate Platelet Morphology Normal Hypochromasia 1+ Anisocytosis 1+ Sodium Level 132 MMOL/L (136-145) 131 MMOL/L (136-145) Potassium Level 3.4 MMOL/L (3.5-5.1) 3.3 MMOL/L (3.5-5.1) Chloride Level 96 MMOL/L (98-107) 95 MMOL/L (98-107) Carbon Dioxide Level 30 MMOL/L (21-32) 26 MMOL/L (21-32) Anion Gap 6 mmol/L (5-15) 10 mmol/L (5-15) Blood Urea Nitrogen 72 mg/dL (7-18) 85 mg/dL (7-18) Creatinine 3.7 MG/DL (0.55-1.30) 3.9 MG/DL (0.55-1.30) Estimat Glomerular Filtration Rate 13.1 mL/min (>60) 12.4 mL/min (>60) Glucose Level 84 MG/DL (74-106) 102 MG/DL (74-106) Calcium Level 8.6 MG/DL (8.5-10.1) 9.3 MG/DL (8.5-10.1) Phosphorus Level 2.9 MG/DL (2.5-4.9) 2.9 MG/DL (2.5-4.9) Magnesium Level 3.4 MG/DL (1.8-2.4) 3.3 MG/DL (1.8-2.4) Total Bilirubin 0.4 MG/DL (0.2-1.0) 0.4 MG/DL (0.2-1.0) Aspartate Amino Transf (AST/SGOT) 16 U/L (15-37) 17 U/L (15-37) Alanine Aminotransferase (ALT/SGPT) < 6 U/L (12-78) < 6 U/L (12-78) Alkaline Phosphatase 139 U/L (46-116) 180 U/L (46-116) Total Protein 6.4 G/DL (6.4-8.2) 7.4 G/DL (6.4-8.2) Albumin 1.7 G/DL (3.4-5.0) 1.9 G/DL (3.4-5.0) Globulin 4.7 g/dL 5.5 g/dL Albumin/Globulin Ratio 0.4 (1.0-2.7) 0.3 (1.0-2.7) POC Whole Blood Glucose 74 MG/DL (74-106) 108 MG/DL (74-106) Test 02/14/20 06:24 02/14/20 12:48 02/14/20 16:51 02/15/20 00:39 POC Whole Blood Glucose 117 MG/DL (74-106) 111 MG/DL (74-106) 100 MG/DL (74-106) 97 MG/DL (74-106) Test 02/15/20 04:15 02/15/20 06:02 White Blood Count 9.5 K/UL (4.8-10.8) Red Blood Count 3.02 M/UL (4.20-5.40) Hemoglobin 8.3 G/DL (12.0-16.0) Hematocrit 26.6 % (37.0-47.0) Mean Corpuscular Volume 88 FL (80-99) Mean Corpuscular Hemoglobin 27.6 PG (27.0-31.0) Mean Corpuscular Hemoglobin Concent 31.3 G/DL (32.0-36.0) Red Cell Distribution Width 14.7 % (11.6-14.8) Platelet Count 292 K/UL (150-450) Mean Platelet Volume 5.4 FL (6.5-10.1) Neutrophils (%) (Auto) 71.3 % (45.0-75.0) Lymphocytes (%) (Auto) 19.2 % (20.0-45.0) Monocytes (%) (Auto) 5.6 % (1.0-10.0) Eosinophils (%) (Auto) 2.8 % (0.0-3.0) Basophils (%) (Auto) 1.1 % (0.0-2.0) Sodium Level 134 MMOL/L (136-145) Potassium Level 3.3 MMOL/L (3.5-5.1) Chloride Level 98 MMOL/L (98-107) Carbon Dioxide Level 28 MMOL/L (21-32) Blood Urea Nitrogen 81 mg/dL (7-18) Creatinine 3.9 MG/DL (0.55-1.30) Estimat Glomerular Filtration Rate 12.4 mL/min (>60) Glucose Level 92 MG/DL (74-106) Calcium Level 9.5 MG/DL (8.5-10.1) Phosphorus Level 3.2 MG/DL (2.5-4.9) Magnesium Level 3.4 MG/DL (1.8-2.4) Total Bilirubin 0.3 MG/DL (0.2-1.0) Aspartate Amino Transf (AST/SGOT) 18 U/L (15-37) Alanine Aminotransferase (ALT/SGPT) < 6 U/L (12-78) Alkaline Phosphatase 151 U/L (46-116) C-Reactive Protein, Quantitative 15.2 mg/dL (0.00-0.90) Total Protein 6.8 G/DL (6.4-8.2) Albumin 1.8 G/DL (3.4-5.0) Globulin 5.0 g/dL Albumin/Globulin Ratio 0.4 (1.0-2.7) POC Whole Blood Glucose 97 MG/DL (74-106) Height (Feet): 5 Height (Inches): 6.00 Weight (Pounds): 150 Objective Physical Exam: Vitals: reviewed General: NAD HEENT: nc, at Neck: supple ++trach/vent Chest: clear breath sounds bilaterally Cardiovascular: RRR, no s3, s4 Abdomen: soft, nontender, nd +gtube Extremities: no cce, normal range of motion Neuro: alert Nena Mota NP Feb 15, 2020 10:40
--- NOTE | 2020-02-15 12:15 | Pulmonology Progress Note ---
Subjective ROS Limited/Unobtainable: Yes Interval Events: none major reported per nursing Constitutional: Reports: no symptoms HEENT: Repors: no symptoms Respiratory: Reports: no symptoms Cardiovascular: Reports: no symptoms Gastrointestinal/Abdominal: Reports: no symptoms Allergies: Coded Allergies: No Known Allergies (Unverified , 10/10/17) All Systems: reviewed and negative except above Objective Last 24 Hour Vital Signs Date Time Temp Pulse Resp B/P (MAP) Pulse Ox O2 Delivery O2 Flow Rate FiO2 02/15/20 08:24 75 126/62 02/15/20 08:23 75 126/62 02/15/20 08:23 126/62 02/15/20 08:00 Mechanical Ventilator Mechanical Ventilator 02/15/20 08:00 40 02/15/20 08:00 98.2 71 14 126/62 (83) 99 02/15/20 07:50 72 02/15/20 07:06 128/62 02/15/20 04:00 Mechanical Ventilator Mechanical Ventilator 02/15/20 04:00 Mechanical Ventilator Mechanical Ventilator 02/15/20 04:00 98.0 66 15 128/62 (84) 98 02/15/20 04:00 40 02/15/20 04:00 72 02/15/20 01:00 67 16 40 02/15/20 00:00 61 02/15/20 00:00 40 02/15/20 00:00 117/67 02/15/20 00:00 98.1 61 15 117/67 (84) 98 02/15/20 00:00 Mechanical Ventilator Mechanical Ventilator 02/14/20 22:48 98.1 02/14/20 21:57 75 124/72 02/14/20 20:00 Mechanical Ventilator Mechanical Ventilator 02/14/20 20:00 40 02/14/20 20:00 97.7 75 17 124/72 (89) 100 02/14/20 20:00 75 02/14/20 19:00 67 16 40 02/14/20 18:22 138/80 02/14/20 18:22 138/80 02/14/20 18:22 74 138/80 02/14/20 16:00 Mechanical Ventilator Mechanical Ventilator 02/14/20 16:00 98.7 74 20 138/80 (99) 99 02/14/20 16:00 40 02/14/20 15:29 75 02/14/20 13:26 72 29 40 02/14/20 12:18 148/57 02/14/20 12:17 148/57 Intake and Output 02/14/20 02/15/20 19:00 07:00 Intake Total 810 ml 585 ml Output Total 550 ml Balance 260 ml 585 ml Free Water 100 ml 200 ml IV Total 290 ml Tube Feeding 420 ml 385 ml Output Urine Total 550 ml Objective saturating well on current vent setting General Appearance: no acute distress HEENT: normocephalic, other - trach Respiratory: chest wall non-tender, other - coarse lung sounds Cardiovascular: normal rate, regular rhythm, other - s/p pacemaker, October 2018 Abdomen: soft, non tender Genitourinary: other - Norman Extremities: other - trace edema Laboratory Tests 02/14/20 12:48: POC Whole Blood Glucose 111H 02/14/20 16:51: POC Whole Blood Glucose 100 02/15/20 00:39: POC Whole Blood Glucose 97 02/15/20 04:15: White Blood Count 9.5, Red Blood Count 3.02L, Hemoglobin 8.3L, Hematocrit 26.6L, Mean Corpuscular Volume 88, Mean Corpuscular Hemoglobin 27.6, Mean Corpuscular Hemoglobin Concent 31.3L, Red Cell Distribution Width 14.7, Platelet Count 292, Mean Platelet Volume 5.4L, Neutrophils (%) (Auto) 71.3, Lymphocytes (%) (Auto) 19.2L, Monocytes (%) (Auto) 5.6, Eosinophils (%) (Auto) 2.8, Basophils (%) (Auto) 1.1, Sodium Level 134L, Potassium Level 3.3L, Chloride Level 98, Carbon Dioxide Level 28, Blood Urea Nitrogen 81H, Creatinine 3.9H, Estimat Glomerular Filtration Rate 12.4, Glucose Level 92, Calcium Level 9.5, Phosphorus Level 3.2, Magnesium Level 3.4H, Total Bilirubin 0.3, Aspartate Amino Transf (AST/SGOT) 18, Alanine Aminotransferase (ALT/SGPT) < 6L, Alkaline Phosphatase 151H, C-Reactive Protein, Quantitative 15.2H, Total Protein 6.8, Albumin 1.8L, Globulin 5.0, Albumin/Globulin Ratio 0.4L 02/15/20 06:02: POC Whole Blood Glucose 97 Current Medications Medications (Trade) Dose Ordered Sig/Penny Route PRN Reason Start Time Stop Time Status Last Admin Dose Admin Acetaminophen (Tylenol) 500 mg Q6H PRN GT FEVER 01/21/20 20:45 02/20/20 20:44 02/12/20 00:42 Acetaminophen (Tylenol) 650 mg Q6H PRN GT Mild Pain (Pain Scale 1-3) 02/09/20 17:15 03/10/20 17:14 02/09/20 17:39 Acetaminophen/ Hydrocodone Bitart (Iaeger 5/325) 1 tab Q6H PRN GT moderate-severe pain (7-10) 02/14/20 15:30 02/21/20 15:29 02/15/20 08:25 Amantadine HCl (Symmetrel) 100 mg TWICE A DAY GT 01/31/20 18:00 03/01/20 17:59 02/15/20 08:23 Amlodipine Besylate (Norvasc) 5 mg BID GT 01/22/20 18:00 02/20/20 15:44 02/15/20 08:24 Aspirin (ASA) 81 mg DAILY GT 01/20/20 09:00 03/05/20 08:59 02/15/20 08:23 Atorvastatin Calcium (Lipitor) 10 mg BEDTIME GT 01/17/20 21:00 04/16/20 20:59 02/14/20 21:58 Chlorhexidine Gluconate (Ling-Hex 2%) 1 applic DAILY@2000 TOPIC 01/17/20 20:00 04/16/20 19:59 02/14/20 20:00 Dextrose (Dextrose 50%) 25 ml Q30M PRN IV Hypoglycemia 01/15/20 22:15 04/14/20 22:14 Dextrose (Dextrose 50%) 50 ml Q30M PRN IV Hypoglycemia 01/15/20 22:15 04/14/20 22:14 01/22/20 17:54 Docusate Sodium (Colace) 200 mg BIDPRN PRN GT Constipation 01/31/20 07:45 03/01/20 07:44 02/04/20 11:21 Epoetin Gelacio (Epoetin Gelacio(ESRD on dialysis)) 2,000 unit MON-MON-MON SUBQ 02/14/20 21:00 05/14/20 20:59 02/14/20 21:57 Epoetin Gelacio (Epoetin Gelacio(ESRD on dialysis)) 8,000 unit MON-MON-MON SUBQ 02/14/20 21:00 05/14/20 20:59 02/14/20 21:57 Hydralazine HCl (Apresoline) 25 mg Q6HR GT 01/26/20 18:15 04/25/20 18:14 02/15/20 07:06 Isosorbide Dinitrate (Isordil) 20 mg TID GT 01/25/20 09:00 02/19/20 08:59 02/15/20 08:23 Lactulose (Cephulac) 20 gm THREE TIMES A DAY GT 02/04/20 13:00 03/05/20 12:59 02/15/20 08:22 Lansoprazole (Prevacid) 30 mg BID GT 01/19/20 18:00 02/18/20 17:59 02/15/20 08:23 Metoclopramide HCl (Reglan) 5 mg Q6HR IVP 02/05/20 07:00 03/06/20 06:59 02/15/20 07:07 Metoprolol Tartrate (Lopressor) 25 mg Q12HR ORAL 01/27/20 21:00 04/22/20 20:59 02/15/20 08:23 Polyethylene Glycol (Miralax) 17 gm BEDTIME GT 02/04/20 21:00 03/05/20 20:59 02/14/20 21:57 Sodium Hypochlorite (Dakin's Quarter Strength) 1 applic DAILY TOPIC 01/30/20 09:00 02/29/20 08:59 02/15/20 08:26 Zinc Oxide (Zinc Oxide) 1 applic TIDPRN PRN TOPIC diogenes GT 01/16/20 13:15 04/15/20 13:14 01/16/20 14:55 Assessment/Plan Assessment/Plan 1. Large left effusion. - S/p thoracentesis; CXR better - pleural fluid pathology report: negative for malignant cell 2. Chronic respiratory failure. - Continue trach care - Cont AC mode - Currently saturating at 97% 3. Sepsis; improving 4. Anemia - s/p transfusion - s/p Epogen Hyponatremia, hypokalemia - Dr. Houston following s/p HD on broad-spectrum antibiotics. Pulmonary hygiene. DVT and GI prophylaxes. Dc planning in place FiO2 increased previously to 60%; now decreased to 40%; will wean further as tolerated The care for this patient was discussed with my supervising physician Time spent for this case was approximately 31 minutes Cruz Wilson Feb 15, 2020 12:15
--- NOTE | 2020-02-15 13:00 | NUR ---
NURSE NOTES: GT came off. Inserted a raymond catheter to keep the stoma open. updated Dr. Mccauley. Awaiting for response.
--- NOTE | 2020-02-15 14:15 | NUR ---
*-*DISCHARGE PLANNING*-* PATIENT HAS BEEN REFERRED TO: [facility] P: [phone] S/W SILVIA, CALL BACK ON MONDAY, ADMISSIONS NOT AVAILABLE. [facility] P: [phone] S/W CASI, CALL BACK MONDAY, ADMISSIONS NOT IN OVER THE WEEKEND [facility] P: [phone] S/W MARIOLA, PLEASE FOLLOW UP ON MONDAY. [facility] P: [phone] S/W ENRRIQUE, NOT ACCEPTING ANY NEW ADMISSIONS , DUE TO COVID OUTBREAK. [facility] P: [phone] S/W SURINDER, NOT ACCEPTING ANY ADMISSIONS DUE TO COVID [facility] P: [phone] S/W RADHA, ADMISSIONS GONE OVER THE WEEKEND [facility] P: [phone] S/W AMBREEN, FOLLOW UP ON MONDAY WHEN ADMISSIONS ARE AVAILABLE. [facility] P: [phone] S/W ELE, WILL UP AFTER REVIEW. [facility] P: [phone] S/W DAISHA, NOT ACCEPTING ANY ADMISSIONS AT THE MOMENT, DUE TO COVID [facility] P: [phone] S/W ERA, NOT ACCEPTING ANY ADMISSIONS, DUE TO COVID.
--- NOTE | 2020-02-15 14:45 | NUR ---
NURSE NOTES: Dr. Farris came by. updated him about the GT coming off. He said it is okay to use raymond for temporary feeding. He will come back tomorrow to replace the whole GT. Will update the upcoming nurse. Addendum: 02/15/20 at 1729 by Sendy Lehman RN Dr. Farris came to bedside. Checked the patient. Per Dr. Farris, okay to use raymond catheter for now for temporary feeding. Dr. Farris will come back tomorrow morning to insert the new GT at bedside.
--- NOTE | 2020-02-15 15:39 | Nephrology Progress Note ---
Assessment/Plan Problem List: (1) ARF (acute renal failure) (2) Pacemaker (3) Sepsis (4) Hyponatremia Assessment (1) JAVIER (acute kidney injury) (2) Renal failure (ARF), acute on chronic (3) Feeding by G-tube (4) Tracheostomy in place (5) Electrolyte imbalance, hyponatremia (6) Anemia, severe (7) Respiratory failure, acute and chronic (8) Elevated lipase, pancreatitis (9) Elevated troponin I (10) Sepsis Plan February 14: Labs reviewed. Abnormal electrolytes addressed. Patient has not been dialyzed since February 07. Continue to monitor renal parameters. February 13: Hemoglobin up to 9.2. Low potassium and low sodium addressed. Continue to monitor renal parameters. Hemodialysis as needed. February 12: Labs reviewed. Hemoglobin 6.8. Creatinine 3.7 and stable. Transfusion will defer to Dr. Radford. Continue to monitor CBC and CHEM panel. February 11: Labs reviewed. Serum creatinine 3.6. Low potassium addressed. Dialysis as needed. Will monitor renal parameters. February 10: Labs reviewed. Potassium replaced. Serum sodium 132. Check labs tomorrow. Dialysis as needed. February 09: No labs drawn today. Last dialysis February 07. Will check lab tomorrow. Hemodialysis as needed. February 08: Labs reviewed. Dialyzed yesterday. Stable from renal standpoint of view. Continue to monitor electrolytes and order dialysis as needed. February 07: Labs reviewed. Due for dialysis today. Continue per consultants. February 06: Labs reviewed. Last dialysis February 03. Will postpone today's dialysis to tomorrow. Continue per current treatment plan. February 05: Labs reviewed. Last dialysis February 03. Will order dialysis tomorrow. Waiting for tunneled catheter placement. February 04: Labs reviewed. Dialyzed yesterday. With a plan for insertion of a tunneled dialysis catheter and discontinue left groin dialysis catheter afterwards. Check labs in a.m. Discussed with Dr. Dong. February 03: Labs reviewed. Due for dialysis today. Continue per consultants. February 02: Labs reviewed. Will order dialysis tomorrow. Continue per consultants. February 01: Labs reviewed. Creatinine gradually rising. Will dialyze as needed. Continue to monitor renal parameters. January 31: Last dialysis January 29. Labs reviewed. No need for dialysis today. Continue per current management. Hemodialysis as needed. Will check renal parameters and chemistries tomorrow. January 30: Patient was dialyzed yesterday. No labs drawn today. Continue to monitor renal parameters and dialyze as needed. Continue per consultants and PMD. January 29: Patient due for dialysis today. Today's can panel reviewed. Continue to monitor renal parameters and dialysis as needed. January 28: Patient last dialyzed January 26. No labs drawn today. Will order dialysis tomorrow. Check chemistry panel tomorrow. Continue per consultants. January 27: Patient was dialyzed yesterday . Labs were reviewed. Electrolytes within normal limit. Blood pressure stable. January 26: When visited the patient earlier today the patient was on dialysis. Tolerating well. Labs reviewed. Blood pressure stable. January 25: Dialysis for tomorrow. Labs reviewed. Hemoglobin remains low. Wi ll adjust blood pressure medication. Hydralazine added to the regimen January 24: Last dialyzed January 22. Labs reviewed. Status quo. Will dialyze as needed. Low hemoglobin noted. Transfusion per PMD decision. Epogen started. \January 23: Dialyzed yesterday. Today's labs reviewed. Continue to monitor renal parameters and arrange for dialysis as needed. Continue per PMD. January 22: Seen earlier during dialysis. Labs reviewed. Medication list reviewed. Continue current management. January 21: Labs reviewed. Medication list reviewed. Next hemodialysis tomorrow. Blood pressure medication adjusted. January 20: Dialyzed yesterday. Labs reviewed. Continue per current management. Dialysis as needed. Add Norvasc to blood pressure regimen January 19: Due for dialysis today. Labs reviewed. Continue her current management. Continue to monitor renal parameters and electrolytes. January 18: Dialyzed yesterday. Labs reviewed. Renal parameters electrolytes much improved. Dialysis again tomorrow. Continue rest. January 17: Dialyzed this morning. Labs reviewed. Renal parameters and electrolyte abnormalities improved. Discussed with RN. Continue per consultants. January 16: Dialyzed yesterday. Labs improved. Next dialysis tomorrow. Continue per consultants. January 15: Patient to have dialysis catheter. Emergency dialysis for correction of uremia and electrolyte imbalances Antibiotics Transfusion Continue to monitor renal parameters Per orders Discussed with RN Subjective ROS Limited/Unobtainable: Yes Objective Objective Last 24 Hour Vital Signs Date Time Temp Pulse Resp B/P (MAP) Pulse Ox O2 Delivery O2 Flow Rate FiO2 02/15/20 12:45 139/60 02/15/20 12:45 139/60 02/15/20 12:00 99.3 64 20 145/72 (96) 99 02/15/20 12:00 40 02/15/20 12:00 Mechanical Ventilator Mechanical Ventilator 02/15/20 11:42 63 02/15/20 08:24 75 126/62 02/15/20 08:23 75 126/62 02/15/20 08:23 126/62 02/15/20 08:00 Mechanical Ventilator Mechanical Ventilator 02/15/20 08:00 40 02/15/20 08:00 98.2 71 14 126/62 (83) 99 02/15/20 07:50 72 02/15/20 07:06 128/62 02/15/20 04:00 Mechanical Ventilator Mechanical Ventilator 02/15/20 04:00 Mechanical Ventilator Mechanical Ventilator 02/15/20 04:00 98.0 66 15 128/62 (84) 98 02/15/20 04:00 40 02/15/20 04:00 72 02/15/20 01:00 67 16 40 02/15/20 00:00 61 02/15/20 00:00 40 02/15/20 00:00 117/67 02/15/20 00:00 98.1 61 15 117/67 (84) 98 02/15/20 00:00 Mechanical Ventilator Mechanical Ventilator 02/14/20 22:48 98.1 02/14/20 21:57 75 124/72 02/14/20 20:00 Mechanical Ventilator Mechanical Ventilator 02/14/20 20:00 40 02/14/20 20:00 97.7 75 17 124/72 (89) 100 02/14/20 20:00 75 02/14/20 19:00 67 16 40 02/14/20 18:22 138/80 02/14/20 18:22 138/80 02/14/20 18:22 74 138/80 02/14/20 16:00 Mechanical Ventilator Mechanical Ventilator 02/14/20 16:00 98.7 74 20 138/80 (99) 99 02/14/20 16:00 40 Intake and Output 02/14/20 02/15/20 19:00 07:00 Intake Total 810 ml 585 ml Output Total 550 ml Balance 260 ml 585 ml Free Water 100 ml 200 ml IV Total 290 ml Tube Feeding 420 ml 385 ml Output Urine Total 550 ml Laboratory Tests 02/14/20 16:51: POC Whole Blood Glucose 100 02/15/20 00:39: POC Whole Blood Glucose 97 02/15/20 04:15: White Blood Count 9.5, Red Blood Count 3.02L, Hemoglobin 8.3L, Hematocrit 26.6L, Mean Corpuscular Volume 88, Mean Corpuscular Hemoglobin 27.6, Mean Corpuscular Hemoglobin Concent 31.3L, Red Cell Distribution Width 14.7, Platelet Count 292, Mean Platelet Volume 5.4L, Neutrophils (%) (Auto) 71.3, Lymphocytes (%) (Auto) 19.2L, Monocytes (%) (Auto) 5.6, Eosinophils (%) (Auto) 2.8, Basophils (%) (Auto) 1.1, Sodium Level 134L, Potassium Level 3.3L, Chloride Level 98, Carbon Dioxide Level 28, Blood Urea Nitrogen 81H, Creatinine 3.9H, Estimat Glomerular Filtration Rate 12.4, Glucose Level 92, Calcium Level 9.5, Phosphorus Level 3.2, Magnesium Level 3.4H, Total Bilirubin 0.3, Aspartate Amino Transf (AST/SGOT) 18, Alanine Aminotransferase (ALT/SGPT) < 6L, Alkaline Phosphatase 151H, C-Reactive Protein, Quantitative 15.2H, Total Protein 6.8, Albumin 1.8L, Globulin 5.0, Albumin/Globulin Ratio 0.4L 02/15/20 06:02: POC Whole Blood Glucose 97 02/15/20 12:27: POC Whole Blood Glucose 84 Height (Feet): 5 Height (Inches): 6.00 Weight (Pounds): 150 General Appearance: no apparent distress EENT: other - Trach to vent Cardiovascular: normal rate Respiratory/Chest: decreased breath sounds Abdomen: soft Objective No change Johnny Houston MD Feb 15, 2020 15:38
--- NOTE | 2020-02-15 15:52 | Surgery Progress Note ---
Surgery Progress Note Subjective Procedure Performed Left femoral temporary hemodialysis catheter insertion Additional Comments ill appearing no n/v labs noted exam stable Objective Last 24 Hour Vital Signs Date Time Temp Pulse Resp B/P (MAP) Pulse Ox O2 Delivery O2 Flow Rate FiO2 02/15/20 12:45 139/60 02/15/20 12:45 139/60 02/15/20 12:00 99.3 64 20 145/72 (96) 99 02/15/20 12:00 40 02/15/20 12:00 Mechanical Ventilator Mechanical Ventilator 02/15/20 11:42 63 02/15/20 08:24 75 126/62 02/15/20 08:23 75 126/62 02/15/20 08:23 126/62 02/15/20 08:00 Mechanical Ventilator Mechanical Ventilator 02/15/20 08:00 40 02/15/20 08:00 98.2 71 14 126/62 (83) 99 02/15/20 07:50 72 02/15/20 07:06 128/62 02/15/20 04:00 Mechanical Ventilator Mechanical Ventilator 02/15/20 04:00 Mechanical Ventilator Mechanical Ventilator 02/15/20 04:00 98.0 66 15 128/62 (84) 98 02/15/20 04:00 40 02/15/20 04:00 72 02/15/20 01:00 67 16 40 02/15/20 00:00 61 02/15/20 00:00 40 02/15/20 00:00 117/67 02/15/20 00:00 98.1 61 15 117/67 (84) 98 02/15/20 00:00 Mechanical Ventilator Mechanical Ventilator 02/14/20 22:48 98.1 02/14/20 21:57 75 124/72 02/14/20 20:00 Mechanical Ventilator Mechanical Ventilator 02/14/20 20:00 40 02/14/20 20:00 97.7 75 17 124/72 (89) 100 02/14/20 20:00 75 02/14/20 19:00 67 16 40 02/14/20 18:22 138/80 02/14/20 18:22 138/80 02/14/20 18:22 74 138/80 02/14/20 16:00 Mechanical Ventilator Mechanical Ventilator 02/14/20 16:00 98.7 74 20 138/80 (99) 99 02/14/20 16:00 40 I&O Intake and Output 02/14/20 02/15/20 19:00 07:00 Intake Total 810 ml 585 ml Output Total 550 ml Balance 260 ml 585 ml Free Water 100 ml 200 ml IV Total 290 ml Tube Feeding 420 ml 385 ml Output Urine Total 550 ml Dressing: other Wound: other Cardiovascular: RSR Respiratory: decreased breath sounds Abdomen: soft, non-tender, present bowel sounds Extremities: edema, no tenderness, no cyanosis Laboratory Tests Test 02/14/20 16:51 02/15/20 00:39 02/15/20 04:15 02/15/20 06:02 POC Whole Blood Glucose 100 MG/DL (74-106) 97 MG/DL (74-106) 97 MG/DL (74-106) White Blood Count 9.5 K/UL (4.8-10.8) Red Blood Count 3.02 M/UL (4.20-5.40) L Hemoglobin 8.3 G/DL (12.0-16.0) L Hematocrit 26.6 % (37.0-47.0) L Mean Corpuscular Volume 88 FL (80-99) Mean Corpuscular Hemoglobin 27.6 PG (27.0-31.0) Mean Corpuscular Hemoglobin Concent 31.3 G/DL (32.0-36.0) L Red Cell Distribution Width 14.7 % (11.6-14.8) Platelet Count 292 K/UL (150-450) Mean Platelet Volume 5.4 FL (6.5-10.1) L Neutrophils (%) (Auto) 71.3 % (45.0-75.0) Lymphocytes (%) (Auto) 19.2 % (20.0-45.0) L Monocytes (%) (Auto) 5.6 % (1.0-10.0) Eosinophils (%) (Auto) 2.8 % (0.0-3.0) Basophils (%) (Auto) 1.1 % (0.0-2.0) Sodium Level 134 MMOL/L (136-145) L Potassium Level 3.3 MMOL/L (3.5-5.1) L Chloride Level 98 MMOL/L (98-107) Carbon Dioxide Level 28 MMOL/L (21-32) Blood Urea Nitrogen 81 mg/dL (7-18) H Creatinine 3.9 MG/DL (0.55-1.30) H Estimat Glomerular Filtration Rate 12.4 mL/min (>60) Glucose Level 92 MG/DL (74-106) Calcium Level 9.5 MG/DL (8.5-10.1) Phosphorus Level 3.2 MG/DL (2.5-4.9) Magnesium Level 3.4 MG/DL (1.8-2.4) H Total Bilirubin 0.3 MG/DL (0.2-1.0) Aspartate Amino Transf (AST/SGOT) 18 U/L (15-37) Alanine Aminotransferase (ALT/SGPT) < 6 U/L (12-78) L Alkaline Phosphatase 151 U/L (46-116) H C-Reactive Protein, Quantitative 15.2 mg/dL (0.00-0.90) H Total Protein 6.8 G/DL (6.4-8.2) Albumin 1.8 G/DL (3.4-5.0) L Globulin 5.0 g/dL Albumin/Globulin Ratio 0.4 (1.0-2.7) L Test 02/15/20 12:27 POC Whole Blood Glucose 84 MG/DL (74-106) Plan Problems: (1) Dehydration (2) Acidosis (3) Depression (4) Pleural effusion (5) Respiratory failure (6) Schizophrenia (7) Hypoxia (8) UTI (urinary tract infection) (9) Pneumonia (10) NSTEMI (non-ST elevated myocardial infarction) (11) Tracheostomy in place (12) Feeding by G-tube (13) JAVIER (acute kidney injury) (14) Acute encephalopathy (15) Sacral decubitus ulcer, stage IV (16) Chronic respiratory failure (17) Ascites (18) Bacteremia (19) Hypernatremia (20) Proteinuria (21) Electrolyte imbalance (22) ACS (acute coronary syndrome) (23) Aortic dissection, thoracic (24) Respiratory failure, acute and chronic (25) JAVIER (acute kidney injury) (26) Abrasion of lip, initial encounter (27) COPD with exacerbation (28) Elevated alkaline phosphatase level (29) Renal failure (ARF), acute on chronic (30) HCAP (healthcare-associated pneumonia) (31) GT CLOGGED (32) Elevated lipase (33) Pancreatitis (34) Elevated troponin (35) Hypokalemia (36) Hyponatremia (37) Anemia (38) Renal failure (39) ARF (acute renal failure) (40) Pacemaker (41) Sepsis Assessment & Plan: leukocytosis anemia on HD renal insufficiency wounds addressed pancreatitis cont diet as tolerating trend labs lf'ts okay bleeding from permacath site suture used and hemostasis obtained plan removal of fem line if stable tomorrow pt presented on admission with Tracheostomy ,GT and Multiple Pressure Injuries. Skin assessment of skin under tracheal collar without evidence of skin breakdown. Peristomal GT site excoriated.Moderate amt of dark red sanguineous exudate. Full Thickness Sacral Pressure Injury with undermined borders (L)9 cm x (W)12cm x (D)1.8cm,Undermining clockwise8-9 by 2.2cm @1o'clock,undermining clockwise 1-4 by 1.9 @ 9'oclock Scattered necrotic tissue within wound bed. Borders are loose and necrotic with marginal erythema to outer perimeter of wound. NO elevation in skin temp noted periwound. Wound is malodorous. Small amt Brown exudate noted. Resolving Pressure Injury L Ischium(L)1.5cm x (W)1.5cm. Base of wound is 80% pink epithelial with an area that is moist and pink. NO odor or exudate noted. Bilat foot-drop noted. L Heel is boggy with non-blanchable erythema(L)4cm x (W)4cm. R heel is boggy with non-Blanchable erythema(L)5cm x (W)6cm. Tx.Plan: Cleanse sacral wound with Dakin's 0.125% annie. Loosely pack with Dakin's moistened Kerlix(Attention to undermined borders). Apply Moisture Barrier Paste periwound. Cover with Optifoam drsg. Change Daily and PRN. Apply Cavilon Skin Barrier to R and L Hels. Cover each heel with Optifoam drsg. Change every 7 days and prn. Reposition at least every 2hours or as tolerated. Off-load heels with Pillow. APM/JENNIFER MAttress overlay DAILY ESTIMATED NEEDS: Needs based on Critical care, wound, renal dysfunction 56 kg abw 28-33 kcals/kg 1508-0073 total kcals W/ HD (1.5-2.0) g protein/kg 84-112 g total protein Fluid per MD NUTRITION DIAGNOSIS: * Swallowing difficulty R/T dysphagia, respiratory status as evidenced by vent dep via trach, GT Dep. * Increase kcal and pro needs r/t wound healing, renal dysfunction as evidenced by admitted w/ stage 4 sacral wound, admitted w/ JAVIER, now on HD. CURRENT TF: Nepro @ 40ml/hr x 24 hrs-> now @35ml/hr ENTERAL NUTRITION RECOMMENDATIONS: Nepro @ 40ml/hr x 24 hrs + Prosource 1pkt QD to provide 960ml, 1728kcal, 78g+11g prot, 698ml free water * As medically appropriate, increase TF goal rate to 40ml/hr x 24 hrs * Add Prosource 1pkt QD to better meet increased protein needs (additional 11g prot) * Water flush per MD/ HOB over 30 degrees ADDITIONAL RECOMMENDATIONS: * Per SNF in NOV 2019: HT=63"/ Rec daily calibrated bedscale wt * Monitor for continuity of HD, last HD 02/07 * Rec phos binders- consistently elevated phos level -> now wnl * Wound care: add Nephrovite x 1, ZnSO4 220mg QD x 10 days Reynaldo BID via PEG (mix w/ 2-4 oz water); vit C per nephro * Monitor TF tolerance: TF lowered for GT leak, increase as able * Add bowel regimen: now added, last BM 02/09 (42) Hyponatremia Lane Saavedra Feb 15, 2020 15:52
[2020-02-15] MEDS: Metoclopramide 10mg/10ml Liq GT SCH (17:55)
--- NOTE | 2020-02-15 19:15 | NUR ---
NURSE HAND-OFF REPORT: Important Events on Shift: stable Patient Status: Diet: Pending Orders: Pending Results/Labs: Pending MD notification: Latest Vital Signs: Temperature 99.0 , Pulse 60 , B/P 149 /71 , Respiratory Rate 17 , O2 SAT 97 , Mechanical Ventilator, O2 Flow Rate . Vital Sign Comment: EKG Rhythm: Sinus Rhythm Rhythm change?: N Notified?: N -Dr. Екатерина HATFIELD Response: Order Received& Read Back Latest Chavarria Fall Score: 70 Fall Risk: High Risk Safety Measures: Call light Within Reach, Bed Alarm Zone 1, Side Rails Side Rails x2, Bed position Low and Locked. Fall Precautions: Yellow Socks Report given to ERASMO Sen].
--- NOTE | 2020-02-15 19:15 | NUR ---
NURSE NOTES: Received report from Louis Lehman RN. Alert and Ox1-[address] Tolerating GT feeding well. No residual noted. HOB elevated 45 degrees. Pt open eyes spontaneously. Respirations even and unlabored. Trach to vent saturating 99% with current setting. No signs of respiratory distress or SOB noted. Norman draining well of raul urine. SB at 59 on cardiac cath lab radiology technologist. Bed in lowest position, call light within reach. Bed alarm engaged. Continue to POC
--- NOTE | 2020-02-15 19:17 | General Progress Note ---
Subjective Allergies: Coded Allergies: No Known Allergies (Unverified , 10/10/17) Subjective Above noted called by RN re G tube PEG fell out - was replaced with raymond by RN RN unable to order a GT replacement from central supply at this time Objective Last 24 Hour Vital Signs Date Time Temp Pulse Resp B/P (MAP) Pulse Ox O2 Delivery O2 Flow Rate FiO2 02/15/20 18:30 60 17 40 02/15/20 17:56 149/71 02/15/20 17:56 149/71 02/15/20 17:56 66 149/71 02/15/20 14:30 63 15 40 02/15/20 12:45 139/60 02/15/20 12:45 139/60 02/15/20 12:00 99.3 64 20 145/72 (96) 99 02/15/20 12:00 40 02/15/20 12:00 Mechanical Ventilator Mechanical Ventilator 02/15/20 11:42 63 02/15/20 10:44 62 14 40 02/15/20 08:24 75 126/62 02/15/20 08:23 75 126/62 02/15/20 08:23 126/62 02/15/20 08:00 Mechanical Ventilator Mechanical Ventilator 02/15/20 08:00 40 02/15/20 08:00 98.2 71 14 126/62 (83) 99 02/15/20 07:50 72 02/15/20 07:06 128/62 02/15/20 07:00 66 15 40 02/15/20 04:00 Mechanical Ventilator Mechanical Ventilator 02/15/20 04:00 Mechanical Ventilator Mechanical Ventilator 02/15/20 04:00 98.0 66 15 128/62 (84) 98 02/15/20 04:00 40 02/15/20 04:00 72 02/15/20 01:00 67 16 40 02/15/20 00:00 61 02/15/20 00:00 40 02/15/20 00:00 117/67 02/15/20 00:00 98.1 61 15 117/67 (84) 98 02/15/20 00:00 Mechanical Ventilator Mechanical Ventilator 02/14/20 22:48 98.1 02/14/20 21:57 75 124/72 02/14/20 20:00 Mechanical Ventilator Mechanical Ventilator 02/14/20 20:00 40 02/14/20 20:00 97.7 75 17 124/72 (89) 100 02/14/20 20:00 75 Intake and Output0 02/14/20 02/15/20 19:00 07:00 Intake Total 810 ml 585 ml Output Total 550 ml Balance 260 ml 585 ml Free Water 100 ml 200 ml IV Total 290 ml Tube Feeding 420 ml 385 ml Output Urine Total 550 ml Laboratory Tests 02/15/20 00:39: POC Whole Blood Glucose 97 02/15/20 04:15: White Blood Count 9.5, Red Blood Count 3.02L, Hemoglobin 8.3L, Hematocrit 26.6L, Mean Corpuscular Volume 88, Mean Corpuscular Hemoglobin 27.6, Mean Corpuscular Hemoglobin Concent 31.3L, Red Cell Distribution Width 14.7, Platelet Count 292, Mean Platelet Volume 5.4L, Neutrophils (%) (Auto) 71.3, Lymphocytes (%) (Auto) 19.2L, Monocytes (%) (Auto) 5.6, Eosinophils (%) (Auto) 2.8, Basophils (%) (Auto) 1.1, Sodium Level 134L, Potassium Level 3.3L, Chloride Level 98, Carbon Dioxide Level 28, Blood Urea Nitrogen 81H, Creatinine 3.9H, Estimat Glomerular Filtration Rate 12.4, Glucose Level 92, Calcium Level 9.5, Phosphorus Level 3.2, Magnesium Level 3.4H, Total Bilirubin 0.3, Aspartate Amino Transf (AST/SGOT) 18, Alanine Aminotransferase (ALT/SGPT) < 6L, Alkaline Phosphatase 151H, C-Reactive Protein, Quantitative 15.2H, Total Protein 6.8, Albumin 1.8L, Globulin 5.0, Albumin/Globulin Ratio 0.4L 02/15/20 06:02: POC Whole Blood Glucose 97 02/15/20 12:27: POC Whole Blood Glucose 84 02/15/20 17:59: POC Whole Blood Glucose [Pending] Height (Feet): 5 Height (Inches): 6.00 Weight (Pounds): 150 Objective NCAT (+) trach Coarse BS RR soft ND NT- raymond in GT site, position verified, catheter secured with tape no edema Assessment/Plan Assessment/Plan: Assessment/Plan (1) Hx of CABG (2) Resp failure, s/p tracheostomy (3) Dysphagia, s/p PEG - needs replacement GT (4) S/P aortic dissection repair (5) Renal failure (6) Anemia Assessment/Plan: stable H&H follow labs OK to use current raymond (secured) for GT Feeding obtain and replace GT HD per nephrology Edmund Farris MD Feb 15, 2020 19:17
[2020-02-15] MEDS: Dyna-Hex 2% Top Sol 2oz TOPIC SCH (22:39)
[2020-02-15] MEDS: Miralax 17gm pkt GT SCH (22:39)
[2020-02-15] MEDS: Docusate 100mg/10ml Liq GT PRN (22:40)
[2020-02-16] VITALS: BP 145/67
--- NOTE | 2020-02-16 | NUR ---
NURSE NOTES: Condition unchanged.VSS stable.Afebrile.No distress noted. Oral care done. No distress noted.
[2020-02-16] MEDS: Metoclopramide 10mg/10ml Liq GT SCH ×5 (01:15→23:57)
[2020-02-16] MEDS: HydrALAZINE 25mg tab GT SCH ×5 (01:15→23:57)
[2020-02-16 04:00] VITALS: BP 139/63
--- NOTE | 2020-02-16 04:00 | NUR ---
NURSE NOTES: PT stable. Tolerating GT feeding well. No residual noted. HOB elevated 45 degrees. Pt open eyes spontaneously. Respirations even and unlabored. Trach to vent saturating 99% with current setting. No signs of respiratory distress or SOB noted. Norman draining well of raul urine. Bed in lowest position, call light within reach. Bed alarm engaged. Continue to POC
[2020-02-16 07:00] LABS: BASOPHILS % (AUTO) 1.1 % (0.0-2.0); EOSINOPHILS % (AUTO) 2.7 % (0.0-3.0); HEMATOCRIT 25.8 % (37.0-47.0); HEMOGLOBIN 8.4 G/DL (12.0-16.0); LYMPHOCYTES % (AUTO) 20.8 % (20.0-45.0); MEAN CORPUSCULAR VOLUME 85 FL (80-99); MONOCYTES % (AUTO) 5.4 % (1.0-10.0); NEUTROPHILS % (AUTO) 69.9 % (45.0-75.0); PLATELET COUNT 267 K/UL (150-450); RED BLOOD COUNT 3.02 M/UL (4.20-5.40); RED CELL DISTRIBUTION WIDTH 15.3 % (11.6-14.8); WHITE BLOOD COUNT 8.1 K/UL (4.8-10.8)
--- NOTE | 2020-02-16 07:35 | NUR ---
HAND-OFF: Report given to Annie LeoRN
--- NOTE | 2020-02-16 07:43 | NUR ---
NURSE NOTES: Received report from Mckinley Austin RN.
[2020-02-16 07:57] LABS: ALANINE AMINOTRANSFERASE 6 U/L (12-78); ALBUMIN 1.9 G/DL (3.4-5.0); ALBUMIN/GLOBULIN RATIO 0.4 (1.0-2.7); ALKALINE PHOSPHATASE 149 U/L (46-116); ANION GAP 8 mmol/L (5-15); ASPARTATE AMINO TRANSFERASE 18 U/L (15-37); BILIRUBIN,TOTAL 0.4 MG/DL (0.2-1.0); BLOOD UREA NITROGEN 83 mg/dL (7-18); CALCIUM 9.7 MG/DL (8.5-10.1); CARBON DIOXIDE 28 MMOL/L (21-32); CHLORIDE 100 MMOL/L (98-107); CHOLESTEROL 86 MG/DL (< 200); CREATININE 3.9 MG/DL (0.55-1.30); HDL CHOLESTEROL 30 MG/DL (40-60); PHOSPHORUS 3.6 MG/DL (2.5-4.9); POTASSIUM 3.4 MMOL/L (3.5-5.1); SODIUM 136 MMOL/L (136-145); TRIGLYCERIDES 104 MG/DL (30-150)
[2020-02-16 08:00] VITALS: BP 142/87
[2020-02-16] MEDS: Aspirin Baby 81mg GT SCH (09:06)
[2020-02-16] MEDS: Lactulose 20gm/30ml UDC GT SCH ×3 (09:06→18:22)
[2020-02-16] MEDS: Amantadine 100mg cap GT SCH ×2 (09:06→18:23)
[2020-02-16] MEDS: Dakin's 0.125% Soln (Quarter Strength) 16oz TOPIC SCH (09:09)
--- NOTE | 2020-02-16 09:10 | NUR ---
NURSE NOTES: Pt. in bed, awake watching T.V. Non-verbal. No sign of distress. Mech vent. dependent with setting AC14/VT500/Fi O2 of 40%/P5. No grimacing noted. HOB elevated at all times. On GTF Nepro 35cc/hr. No n/v noted. Tolerating well. F/C in placed patent/intact draining yellow colored urine. IV at right hand #22g. in placed patent/intact. Bed in low position, locked. Call light within reach. Will cont. to monitor.
--- NOTE | 2020-02-16 10:14 | Infectious Diseases Prog Note ---
Assessment/Plan 49yo F with: AF Sepsis Leukocytosis Hypoxia on vent Pneumonia c/b L pleural effusion (recurrent, prior determined to be transudative) - s/p thora 01/21, 1050cc removed Volume overload, BNP >35,0000, likely 2/2 progressive CKD --> ESRD ?Pancreatitis, Lipase >2000 Acute anemia to 5s CONS bacteremia, ?contaminant Aflutter w/ RVR 01/13 BCx 2/2 +S. epi COVID PCR neg Flu neg CXR: Large left pleural effusion. Bilateral interstitial and airspace infiltrates versus edema MRSA nares neg 01/16 BCx NTD 01/17 BCx /2 +Staph auricularis (skin colonizer) 01/18 Resp cx +MDR CRE PsA (S-gent, I-colistin, R-polyB) 01/18 C.dif neg 01/18 CXR: Similar opacification of the left hemithorax likely representing combination of pleural effusion with atelectasis versus pneumonia/edema. Decreased but persistent hazy opacity throughout the right lung may represent edema versus infectious/inflammatory process. 01/20 BCx NTD 01/21 L thora 1050 cc removed, cx NTD 01/25 Wound cx from Gtube site +CRE Kleb pna (arnett-R) and MDR PsA (colonizers) 01/26 CT A/P: Limited exam, due to severe diffuse anasarca. Ascites. Bilateral pleural effusions. Basilar pulmonary atelectatic changes and consolidation. Gastrostomy. Atrophic left kidney with a nephroureteral stents again demonstrated. Possible retrococcygeal decubitus changes. Correlate with clinical findings, consider MRI if there is concern for sacral osteomyelitis. Right hip intertrochanteric fracture, also previously demonstrated. Left femoral dialysis catheter. Nonspecific right lobe liver lesion is unchanged, not well- demonstrated. ctasia bordering on aneurysmal dilatation and possible chronic dissection of the distal thoracic aorta, also previously described. JAVIER on CKD On previous admission Sep-Oct 2019 required HD for short period Going to start HD this admission again R/o COVID / COVID PCR neg 12/29 neg at [facility] per report H/o UTI 10/15 u/a wbc 30-40, nit neg, leuk +3; ucx ESBL P. mirablis, ESBL M. morganii //20 u/a wbc tnct, nit neg, leuk +3; ucx >100k MDR P. stuarti (S Ceftriaxone, Meropenem) 10/07 u/a wbc tnct, nit neg, leuk ; ucx >100k VRE 10/15/19 u/a wbc tnct; ucx >100k ESBL P. stuarti (S ertapenem, aztreonam) H/o transudative pleural effusion 11/28 Sp Thora (w: 169, PMN: 2%, L: 49% , LDH: 57, prot 2.5); cx Neg H/o PNA 10/15/19 Resp cx ESBL P. mirabilis, MDR P.a. (S only to Gent) 09/22 Resp cx + MDR PsA (S-gent; I-colistin; R-levofloxacin, Zosyn, angelo) 09/16/19 Sp cx ESBL P. mirablis H/o PPM site (pocket) infection and pocket abscess 2ry to S. epi-11/2018, sp >6weeks IV vancomycin 11/27 SP ABBIE: no evidence for vegetation on any of the valves 11/26/18 SP PPM removal: OR findings:The fibrous capsule enclosing the generator was then opened and there was a [id number] amount of yellowish fluid drainage. The generator was then removed.Atrial and ventricular leads were detached. The necrotic tissue of the pocket was then removed and the pocket was flushed with an antibiotic solution. Capsule, wound tissue and lead tip cx: Neg 2d echo: no vegetation seen US chest: 4.6 x 3.4 x 0.9 cm hypoechoic/anechoic area overlying left chest pacemaker power pack. This could represent either a discrete fluid collection or a focal area of very edematous tissue. Infected fluid pocket also possible. 11/18 Bcx 3/4 S. epi; 11/20 Bcx neg; 11/24 Bcx Neg; 11/27 Bcx Neg CAD s/p CABG GERD/gastritis Afib HTN Dysphagia sp GT Aortic dissection s/p repair 2017 S/p PPM Parkinson's Disease Schizophrenia Anxiety COPD Chronic resp failure s/p trach Hx of tracheal bleeding [place] resident ([facility]) VRE and MRSA colonized Plan: Cont to monitor off abx OK to d/c from ID standpoint 01/31 SP angelo/inh tobra #10 for pna 01/23 SP vanco IV #10 given CONS/GPC bacteremia 01/16 SP Zosyn #2 01/14 SP dex 10mg in ED 12/10 SP IV Gentamycin #10 12/07 SP Meropenem #10 12/01 SP IV Vancomycin #5 11/28 Sp Cefepime #2 and IV Gentamycin x1 Monitor CBC/CMP Monitor temp curve, hemodynamics Monitor resp status D/w RN Thank you for this consult. [facility] will continue to follow. Subjective Allergies: Coded Allergies: No Known Allergies (Unverified , 10/10/17) AF NAD on vent 40% PEEP 5 WBC wnl in 8s Objective Last 24 Hour Vital Signs Date Time Temp Pulse Resp B/P (MAP) Pulse Ox O2 Delivery O2 Flow Rate FiO2 02/16/20 09:09 142/87 02/16/20 09:08 57 142/87 02/16/20 09:08 57 142/87 02/16/20 05:37 139/63 02/16/20 04:00 99.1 60 20 139/63 (88) 98 02/16/20 04:00 Mechanical Ventilator Mechanical Ventilator 02/16/20 04:00 63 02/16/20 04:00 40 02/16/20 01:15 145/67 02/16/20 00:53 57 15 40 02/16/20 00:00 59 02/16/20 00:00 98.6 64 24 145/67 (93) 99 02/16/20 00:00 40 02/15/20 23:58 Mechanical Ventilator Mechanical Ventilator 02/15/20 23:30 98.6 02/15/20 22:40 75 113/71 02/15/20 20:02 40 02/15/20 20:00 98.7 73 19 113/71 (85) 97 02/15/20 20:00 75 02/15/20 19:58 Mechanical Ventilator Mechanical Ventilator 02/15/20 18:30 60 17 40 02/15/20 17:56 149/71 02/15/20 17:56 149/71 02/15/20 17:56 66 149/71 02/15/20 16:00 40 02/15/20 16:00 Mechanical Ventilator Mechanical Ventilator 02/15/20 16:00 99.0 68 22 129/99 (109) 97 02/15/20 15:35 62 02/15/20 15:35 99.0 68 22 129/99 (109) 97 02/15/20 14:30 63 15 40 02/15/20 12:45 139/60 02/15/20 12:45 139/60 02/15/20 12:00 99.3 64 20 145/72 (96) 99 02/15/20 12:00 40 02/15/20 12:00 Mechanical Ventilator Mechanical Ventilator 02/15/20 11:42 63 02/15/20 10:44 62 14 40 Height (Feet): 5 Height (Inches): 6.00 Weight (Pounds): 150 Gen: NAD HEENT: NCAT, +trach CV: RRR Pulm: CTAB on vent Abd: Non-distended, +PEG with skin intact wo erythema or discharge, but brownish discharge on dressing Ext: No c/c/e Skin: No visible rashes Neuro: Awake, minimally interactive Lines: L fem HD cath Laboratory Tests Test 02/15/20 12:27 02/15/20 17:59 02/16/20 04:49 POC Whole Blood Glucose 84 MG/DL (74-106) Pending White Blood Count 8.1 K/UL (4.8-10.8) Red Blood Count 3.02 M/UL (4.20-5.40) L Hemoglobin 8.4 G/DL (12.0-16.0) L Hematocrit 25.8 % (37.0-47.0) L Mean Corpuscular Volume 85 FL (80-99) Mean Corpuscular Hemoglobin 27.7 PG (27.0-31.0) Mean Corpuscular Hemoglobin Concent 32.4 G/DL (32.0-36.0) Red Cell Distribution Width 15.3 % (11.6-14.8) H Platelet Count 267 K/UL (150-450) Mean Platelet Volume 5.3 FL (6.5-10.1) L Neutrophils (%) (Auto) 69.9 % (45.0-75.0) Lymphocytes (%) (Auto) 20.8 % (20.0-45.0) Monocytes (%) (Auto) 5.4 % (1.0-10.0) Eosinophils (%) (Auto) 2.7 % (0.0-3.0) Basophils (%) (Auto) 1.1 % (0.0-2.0) Sodium Level 136 MMOL/L (136-145) Potassium Level 3.4 MMOL/L (3.5-5.1) L Chloride Level 100 MMOL/L (98-107) Carbon Dioxide Level 28 MMOL/L (21-32) Anion Gap 8 mmol/L (5-15) Blood Urea Nitrogen 83 mg/dL (7-18) H Creatinine 3.9 MG/DL (0.55-1.30) H Estimat Glomerular Filtration Rate 12.4 mL/min (>60) Glucose Level 79 MG/DL (74-106) Osmolality Pending Uric Acid 5.7 MG/DL (2.6-7.2) Calcium Level 9.7 MG/DL (8.5-10.1) Phosphorus Level 3.6 MG/DL (2.5-4.9) Magnesium Level 3.4 MG/DL (1.8-2.4) H Total Bilirubin 0.4 MG/DL (0.2-1.0) Aspartate Amino Transf (AST/SGOT) 18 U/L (15-37) Alanine Aminotransferase (ALT/SGPT) 6 U/L (12-78) L Alkaline Phosphatase 149 U/L (46-116) H Total Protein 6.9 G/DL (6.4-8.2) Albumin 1.9 G/DL (3.4-5.0) L Globulin 5.0 g/dL Albumin/Globulin Ratio 0.4 (1.0-2.7) L Triglycerides Level 104 MG/DL (30-150) Cholesterol Level 86 MG/DL (< 200) LDL Cholesterol 43 mg/dL (<100) HDL Cholesterol 30 MG/DL (40-60) L Cholesterol/HDL Ratio 2.9 (3.3-4.4) L Thyroid Stimulating Hormone (TSH) 2.800 uiU/mL (0.358-3.740) Current Medications Medications (Trade) Dose Ordered Sig/Penny Route PRN Reason Start Time Stop Time Status Last Admin Dose Admin Acetaminophen (Tylenol) 500 mg Q6H PRN GT FEVER 01/21/20 20:45 02/20/20 20:44 02/12/20 00:42 Acetaminophen (Tylenol) 650 mg Q6H PRN GT Mild Pain (Pain Scale 1-3) 02/09/20 17:15 03/10/20 17:14 02/09/20 17:39 Acetaminophen/ Hydrocodone Bitart ([place] 5/325) 1 tab Q6H PRN GT moderate-severe pain (7-10) 02/14/20 15:30 02/21/20 15:29 02/15/20 22:43 Amantadine HCl (Symmetrel) 100 mg TWICE A DAY GT 01/31/20 18:00 03/01/20 17:59 02/16/20 09:06 Amlodipine Besylate (Norvasc) 5 mg BID GT 01/22/20 18:00 02/20/20 15:44 02/16/20 09:08 Aspirin (ASA) 81 mg DAILY GT 01/20/20 09:00 03/05/20 08:59 02/16/20 09:06 Atorvastatin Calcium (Lipitor) 10 mg BEDTIME GT 01/17/20 21:00 04/16/20 20:59 02/15/20 22:40 Chlorhexidine Gluconate (Ling-Hex 2%) 1 applic DAILY@1999 TOPIC 01/17/20 20:00 04/16/20 19:59 02/15/20 22:39 Dextrose (Dextrose 50%) 25 ml Q30M PRN IV Hypoglycemia 01/15/20 22:15 04/14/20 22:14 Dextrose (Dextrose 50%) 50 ml Q30M PRN IV Hypoglycemia 01/15/20 22:15 04/14/20 22:14 01/22/20 17:54 Docusate Sodium (Colace) 200 mg BIDPRN PRN GT Constipation 01/31/20 07:45 03/01/20 07:44 02/15/20 22:40 Epoetin Gelacio (Epoetin Gelacio(ESRD on dialysis)) 2,000 unit MON-MON-MON SUBQ 02/14/20 21:00 05/14/20 20:59 02/14/20 21:57 Epoetin Gelacio (Epoetin Gelacio(ESRD on dialysis)) 8,000 unit MON-MON-MON SUBQ 02/14/20 21:00 05/14/20 20:59 02/14/20 21:57 Hydralazine HCl (Apresoline) 25 mg Q6HR GT 01/26/20 18:15 04/25/20 18:14 02/16/20 05:37 Isosorbide Dinitrate (Isordil) 20 mg TID GT 01/25/20 09:00 02/19/20 08:59 02/16/20 09:09 Lactulose (Cephulac) 20 gm THREE TIMES A DAY GT 02/04/20 13:00 03/05/20 12:59 02/16/20 09:06 Lansoprazole (Prevacid) 30 mg BID GT 01/19/20 18:00 02/18/20 17:59 02/16/20 09:06 Metoclopramide HCl (Reglan) 5 mg EVERY 6 HOURS GT 02/15/20 18:00 03/16/20 17:59 02/16/20 05:38 Metoprolol Tartrate (Lopressor) 25 mg Q12HR ORAL 01/27/20 21:00 04/22/20 20:59 02/16/20 09:08 Polyethylene Glycol (Miralax) 17 gm BEDTIME GT 02/04/20 21:00 03/05/20 20:59 02/15/20 22:39 Potassium Chloride 100 ml @ 100 mls/hr ONCE IVPB 02/15/20 15:45 02/16/20 16:44 02/15/20 16:46 Sodium Hypochlorite (Dakin's Quarter Strength) 1 applic DAILY TOPIC 01/30/20 09:00 02/29/20 08:59 02/16/20 09:09 Zinc Oxide (Zinc Oxide) 1 applic TIDPRN PRN TOPIC diogenes GT 01/16/20 13:15 04/15/20 13:14 01/16/20 14:55 Ro Pack M.D. Feb 16, 2020 10:14
--- NOTE | 2020-02-16 11:00 | NUR ---
NURSE NOTES: Dr. Farris re-inserted gt. Tolerated well.
[2020-02-16 12:00] VITALS: BP 148/84
--- NOTE | 2020-02-16 12:09 | Hematology/Onc Progress Note ---
Assessment/Plan Assessment/Plan IM note Covering for Dr. Dong Assessment and Recs # Leukocytosis, now with pna v other process --> Cxr: : Large left pleural effusion, Bilateral interstitial and airspace infiltrates versus edema --> wbc 16-->26->30-->10->8--> 8.1 --> ABX zosyn-->angelo/vanc-->angelo/tobra->off --> ID recs are noted --> smear has been reviewed # Anemia of chronic disease due to underlying chronic medical issues, multifactorial --> Anemia workup has been reviewed, cw acd --> No evidence of hemolysis is noted, peripheral smear has been reviewed. --> Hgb goal >7. Transfuse prn. --> Epogen required, to continue --> Medications have been reviewed --> low threshold for gi evaluation in case has occult + --> hgb 7.1-->7.8-->>>5.9-->7.3-->7-->7.2-->7.9-->8.6-->8.2-->8.5-->7->8.5->6.8-->9.2--> 8.4 --> 1 unit prbc1, 2 units 01/15. 02/06, 02/12 --> gi eval as needed # Coagulopathy with inr 1.5 --> consider vit k/ffp as needed preprocedure --> labs noted # JAVIER initially >2 --> on ivfs --> per renal # Elevated d-dimer --> venous duplex ordered-->reviewed, is neg --> in prior neg # Dysphagia s/p peg --> as per gi # Thoracic aortic dissection --> s/p repair early 2017 # Chronic Resp failure -> s/p trach/vent # Psychiatric history on ativan/haldol # [place] resident # Dvt ppx --> scds The timing of this note does not necessarily reflect the time of the patient was seen. Greatly appreciate consultation. Subjective Allergies: Coded Allergies: No Known Allergies (Unverified , 10/10/17) Subjective Subjective: 02/[address] still with bleed dw Rn, will place seal/further pressure 02/08 labs reviewed, grimacing, meds noted, vitals noted, seen by cards 02/09 on vent, meds reviewed, hd as per renal, labs pending 02/10 vent, comfortable, no bleeding or chills, hgb stable 02/11 nv, on vent, hgb 8.5, no new events, stable, dw Rn 02/12 nv, trach to vent, hgb 6.8 to get 1 unit prbc 02/13 nv, labs reviewed, hgb has improved, remains on a vent 02/14: dominic cute evnts, no bleeding reported 02/15: tolerating vent setting, afebrile, VSS Objective Objective Current Medications Medications (Trade) Dose Ordered Sig/Penny Route PRN Reason Start Time Stop Time Status Last Admin Dose Admin Acetaminophen (Tylenol) 500 mg Q6H PRN GT FEVER 01/21/20 20:45 02/20/20 20:44 02/12/20 00:42 Acetaminophen (Tylenol) 650 mg Q6H PRN GT Mild Pain (Pain Scale 1-3) 02/09/20 17:15 03/10/20 17:14 02/09/20 17:39 Acetaminophen/ Hydrocodone Bitart (Cassoday 5/325) 1 tab Q6H PRN GT moderate-severe pain (7-10) 02/14/20 15:30 02/21/20 15:29 02/15/20 22:43 Amantadine HCl (Symmetrel) 100 mg TWICE A DAY GT 01/31/20 18:00 03/01/20 17:59 02/16/20 09:06 Amlodipine Besylate (Norvasc) 5 mg BID GT 01/22/20 18:00 02/20/20 15:44 02/16/20 09:08 Aspirin (ASA) 81 mg DAILY GT 01/20/20 09:00 03/05/20 08:59 02/16/20 09:06 Atorvastatin Calcium (Lipitor) 10 mg BEDTIME GT 01/17/20 21:00 04/16/20 20:59 02/15/20 22:40 Chlorhexidine Gluconate (Lnig-Hex 2%) 1 applic DAILY@1999 TOPIC 01/17/20 20:00 04/16/20 19:59 02/15/20 22:39 Dextrose (Dextrose 50%) 25 ml Q30M PRN IV Hypoglycemia 01/15/20 22:15 04/14/20 22:14 Dextrose (Dextrose 50%) 50 ml Q30M PRN IV Hypoglycemia 01/15/20 22:15 04/14/20 22:14 01/22/20 17:54 Docusate Sodium (Colace) 200 mg BIDPRN PRN GT Constipation 01/31/20 07:45 03/01/20 07:44 02/15/20 22:40 Epoetin Gelacio (Epoetin Gelacio(ESRD on dialysis)) 2,000 unit MON- SUBQ 02/14/20 21:00 05/14/20 20:59 02/14/20 21:57 Epoetin Gelacio (Epoetin Gelacio(ESRD on dialysis)) 8,000 unit SUBQ 02/14/20 21:00 05/14/20 20:59 02/14/20 21:57 Hydralazine HCl (Apresoline) 25 mg Q6HR GT 01/26/20 18:15 04/25/20 18:14 02/16/20 05:37 Isosorbide Dinitrate (Isordil) 20 mg TID GT 01/25/20 09:00 02/19/20 08:59 02/16/20 09:09 Lactulose (Cephulac) 20 gm THREE TIMES A DAY GT 02/04/20 13:00 03/05/20 12:59 02/16/20 09:06 Lansoprazole (Prevacid) 30 mg BID GT 01/19/20 18:00 02/18/20 17:59 02/16/20 09:06 Metoclopramide HCl (Reglan) 5 mg EVERY 6 HOURS GT 02/15/20 18:00 03/16/20 17:59 02/16/20 05:38 Metoprolol Tartrate (Lopressor) 25 mg Q12HR ORAL 01/27/20 21:00 04/22/20 20:59 02/16/20 09:08 Polyethylene Glycol (Miralax) 17 gm BEDTIME GT 02/04/20 21:00 03/05/20 20:59 02/15/20 22:39 Potassium Chloride 100 ml @ 50 mls/hr Q1H IVPB 02/16/20 11:00 02/16/20 12:59 02/16/20 11:44 Sodium Hypochlorite (Dakin's Quarter Strength) 1 applic DAILY TOPIC 01/30/20 09:00 02/29/20 08:59 02/16/20 09:09 Zinc Oxide (Zinc Oxide) 1 applic TIDPRN PRN TOPIC diogenes GT 01/16/20 13:15 04/15/20 13:14 01/16/20 14:55 Last 24 Hour Vital Signs Date Time Temp Pulse Resp B/P (MAP) Pulse Ox O2 Delivery O2 Flow Rate FiO2 02/16/20 09:09 142/87 02/16/20 09:08 57 142/87 02/16/20 09:08 57 142/87 02/16/20 08:00 98.2 57 15 142/87 (105) 100 02/16/20 08:00 Mechanical Ventilator Mechanical Ventilator 02/16/20 08:00 40 02/16/20 07:46 58 02/16/20 05:37 139/63 02/16/20 04:00 99.1 60 20 139/63 (88) 98 02/16/20 04:00 Mechanical Ventilator Mechanical Ventilator 02/16/20 04:00 63 02/16/20 04:00 40 02/16/20 01:15 145/67 02/16/20 00:53 57 15 40 02/16/20 00:00 59 02/16/20 00:00 98.6 64 24 145/67 (93) 99 02/16/20 00:00 40 02/15/20 23:58 Mechanical Ventilator Mechanical Ventilator 02/15/20 23:30 98.6 02/15/20 22:40 75 113/71 02/15/20 20:02 40 02/15/20 20:00 98.7 73 19 113/71 (85) 97 02/15/20 20:00 75 02/15/20 19:58 Mechanical Ventilator Mechanical Ventilator 02/15/20 18:30 60 17 40 02/15/20 17:56 149/71 02/15/20 17:56 149/71 02/15/20 17:56 66 149/71 02/15/20 16:00 40 02/15/20 16:00 Mechanical Ventilator Mechanical Ventilator 02/15/20 16:00 99.0 68 22 129/99 (109) 97 02/15/20 15:35 62 02/15/20 15:35 99.0 68 22 129/99 (109) 97 02/15/20 14:30 63 15 40 02/15/20 12:45 139/60 02/15/20 12:45 139/60 02/15/20 12:00 99.3 64 20 145/72 (96) 99 02/15/20 12:00 40 02/15/20 12:00 Mechanical Ventilator Mechanical Ventilator 02/15/20 11:42 63 02/15/20 10:44 62 14 40 02/15/20 08:24 75 126/62 02/15/20 08:23 75 126/62 02/15/20 08:23 126/62 02/15/20 08:00 Mechanical Ventilator Mechanical Ventilator 02/15/20 08:00 40 02/15/20 08:00 98.2 71 14 126/62 (83) 99 02/15/20 07:50 72 02/15/20 07:06 128/62 02/15/20 07:00 66 15 40 02/15/20 04:00 Mechanical Ventilator Mechanical Ventilator 02/15/20 04:00 Mechanical Ventilator Mechanical Ventilator 02/15/20 04:00 98.0 66 15 128/62 (84) 98 02/15/20 04:00 40 02/15/20 04:00 72 02/15/20 01:00 67 16 40 02/15/20 00:00 61 02/15/20 00:00 40 02/15/20 00:00 117/67 02/15/20 00:00 98.1 61 15 117/67 (84) 98 02/15/20 00:00 Mechanical Ventilator Mechanical Ventilator 02/14/20 22:48 98.1 02/14/20 21:57 75 124/72 02/14/20 20:00 Mechanical Ventilator Mechanical Ventilator 02/14/20 20:00 40 02/14/20 20:00 97.7 75 17 124/72 (89) 100 02/14/20 20:00 75 02/14/20 19:00 67 16 40 02/14/20 18:22 138/80 02/14/20 18:22 138/80 02/14/20 18:22 74 138/80 02/14/20 16:00 Mechanical Ventilator Mechanical Ventilator 02/14/20 16:00 98.7 74 20 138/80 (99) 99 02/14/20 16:00 40 02/14/20 15:29 75 02/14/20 13:26 72 29 40 02/14/20 12:18 148/57 02/14/20 12:17 148/57 Intake and Output 02/15/20 02/16/20 19:00 07:00 Intake Total 680 ml 485 ml Output Total 500 ml Balance 680 ml -15 ml Free Water 260 ml 100 ml Tube Feeding 420 ml 385 ml Output Urine Total 500 ml Labs Test 02/14/20 01:04 02/14/20 03:10 02/14/20 06:24 02/14/20 12:48 POC Whole Blood Glucose 108 MG/DL (74-106) 117 MG/DL (74-106) 111 MG/DL (74-106) White Blood Count 10.3 K/UL (4.8-10.8) Red Blood Count 3.33 M/UL (4.20-5.40) Hemoglobin 9.2 G/DL (12.0-16.0) Hematocrit 28.3 % (37.0-47.0) Mean Corpuscular Volume 85 FL (80-99) Mean Corpuscular Hemoglobin 27.7 PG (27.0-31.0) Mean Corpuscular Hemoglobin Concent 32.6 G/DL (32.0-36.0) Red Cell Distribution Width 14.8 % (11.6-14.8) Platelet Count 311 K/UL (150-450) Mean Platelet Volume 5.3 FL (6.5-10.1) Neutrophils (%) (Auto) 75.0 % (45.0-75.0) Lymphocytes (%) (Auto) 17.3 % (20.0-45.0) Monocytes (%) (Auto) 5.6 % (1.0-10.0) Eosinophils (%) (Auto) 1.6 % (0.0-3.0) Basophils (%) (Auto) 0.5 % (0.0-2.0) Sodium Level 131 MMOL/L (136-145) Potassium Level 3.3 MMOL/L (3.5-5.1) Chloride Level 95 MMOL/L (98-107) Carbon Dioxide Level 26 MMOL/L (21-32) Anion Gap 10 mmol/L (5-15) Blood Urea Nitrogen 85 mg/dL (7-18) Creatinine 3.9 MG/DL (0.55-1.30) Estimat Glomerular Filtration Rate 12.4 mL/min (>60) Glucose Level 102 MG/DL (74-106) Calcium Level 9.3 MG/DL (8.5-10.1) Phosphorus Level 2.9 MG/DL (2.5-4.9) Magnesium Level 3.3 MG/DL (1.8-2.4) Total Bilirubin 0.4 MG/DL (0.2-1.0) Aspartate Amino Transf (AST/SGOT) 17 U/L (15-37) Alanine Aminotransferase (ALT/SGPT) < 6 U/L (12-78) Alkaline Phosphatase 180 U/L (46-116) Total Protein 7.4 G/DL (6.4-8.2) Albumin 1.9 G/DL (3.4-5.0) Globulin 5.5 g/dL Albumin/Globulin Ratio 0.3 (1.0-2.7) Test 02/14/20 16:51 02/15/20 00:39 02/15/20 04:15 02/15/20 06:02 POC Whole Blood Glucose 100 MG/DL (74-106) 97 MG/DL (74-106) 97 MG/DL (74-106) White Blood Count 9.5 K/UL (4.8-10.8) Red Blood Count 3.02 M/UL (4.20-5.40) Hemoglobin 8.3 G/DL (12.0-16.0) Hematocrit 26.6 % (37.0-47.0) Mean Corpuscular Volume 88 FL (80-99) Mean Corpuscular Hemoglobin 27.6 PG (27.0-31.0) Mean Corpuscular Hemoglobin Concent 31.3 G/DL (32.0-36.0) Red Cell Distribution Width 14.7 % (11.6-14.8) Platelet Count 292 K/UL (150-450) Mean Platelet Volume 5.4 FL (6.5-10.1) Neutrophils (%) (Auto) 71.3 % (45.0-75.0) Lymphocytes (%) (Auto) 19.2 % (20.0-45.0) Monocytes (%) (Auto) 5.6 % (1.0-10.0) Eosinophils (%) (Auto) 2.8 % (0.0-3.0) Basophils (%) (Auto) 1.1 % (0.0-2.0) Sodium Level 134 MMOL/L (136-145) Potassium Level 3.3 MMOL/L (3.5-5.1) Chloride Level 98 MMOL/L (98-107) Carbon Dioxide Level 28 MMOL/L (21-32) Blood Urea Nitrogen 81 mg/dL (7-18) Creatinine 3.9 MG/DL (0.55-1.30) Estimat Glomerular Filtration Rate 12.4 mL/min (>60) Glucose Level 92 MG/DL (74-106) Calcium Level 9.5 MG/DL (8.5-10.1) Phosphorus Level 3.2 MG/DL (2.5-4.9) Magnesium Level 3.4 MG/DL (1.8-2.4) Total Bilirubin 0.3 MG/DL (0.2-1.0) Aspartate Amino Transf (AST/SGOT) 18 U/L (15-37) Alanine Aminotransferase (ALT/SGPT) < 6 U/L (12-78) Alkaline Phosphatase 151 U/L (46-116) C-Reactive Protein, Quantitative 15.2 mg/dL (0.00-0.90) Total Protein 6.8 G/DL (6.4-8.2) Albumin 1.8 G/DL (3.4-5.0) Globulin 5.0 g/dL Albumin/Globulin Ratio 0.4 (1.0-2.7) Test 02/15/20 12:27 02/15/20 17:59 02/16/20 04:49 POC Whole Blood Glucose 84 MG/DL (74-106) White Blood Count 8.1 K/UL (4.8-10.8) Red Blood Count 3.02 M/UL (4.20-5.40) Hemoglobin 8.4 G/DL (12.0-16.0) Hematocrit 25.8 % (37.0-47.0) Mean Corpuscular Volume 85 FL (80-99) Mean Corpuscular Hemoglobin 27.7 PG (27.0-31.0) Mean Corpuscular Hemoglobin Concent 32.4 G/DL (32.0-36.0) Red Cell Distribution Width 15.3 % (11.6-14.8) Platelet Count 267 K/UL (150-450) Mean Platelet Volume 5.3 FL (6.5-10.1) Neutrophils (%) (Auto) 69.9 % (45.0-75.0) Lymphocytes (%) (Auto) 20.8 % (20.0-45.0) Monocytes (%) (Auto) 5.4 % (1.0-10.0) Eosinophils (%) (Auto) 2.7 % (0.0-3.0) Basophils (%) (Auto) 1.1 % (0.0-2.0) Sodium Level 136 MMOL/L (136-145) Potassium Level 3.4 MMOL/L (3.5-5.1) Chloride Level 100 MMOL/L (98-107) Carbon Dioxide Level 28 MMOL/L (21-32) Anion Gap 8 mmol/L (5-15) Blood Urea Nitrogen 83 mg/dL (7-18) Creatinine 3.9 MG/DL (0.55-1.30) Estimat Glomerular Filtration Rate 12.4 mL/min (>60) Glucose Level 79 MG/DL (74-106) Uric Acid 5.7 MG/DL (2.6-7.2) Calcium Level 9.7 MG/DL (8.5-10.1) Phosphorus Level 3.6 MG/DL (2.5-4.9) Magnesium Level 3.4 MG/DL (1.8-2.4) Total Bilirubin 0.4 MG/DL (0.2-1.0) Aspartate Amino Transf (AST/SGOT) 18 U/L (15-37) Alanine Aminotransferase (ALT/SGPT) 6 U/L (12-78) Alkaline Phosphatase 149 U/L (46-116) Total Protein 6.9 G/DL (6.4-8.2) Albumin 1.9 G/DL (3.4-5.0) Globulin 5.0 g/dL Albumin/Globulin Ratio 0.4 (1.0-2.7) Triglycerides Level 104 MG/DL (30-150) Cholesterol Level 86 MG/DL (< 200) LDL Cholesterol 43 mg/dL (<100) HDL Cholesterol 30 MG/DL (40-60) Cholesterol/HDL Ratio 2.9 (3.3-4.4) Thyroid Stimulating Hormone (TSH) 2.800 uiU/mL (0.358-3.740) Height (Feet): 5 Height (Inches): 6.00 Weight (Pounds): 150 Objective Physical Exam: Vitals: reviewed General: NAD HEENT: nc, at Neck: supple ++trach/vent Chest: clear breath sounds bilaterally Cardiovascular: RRR, no s3, s4 Abdomen: soft, nontender, nd +gtube Extremities: no cce, normal range of motion Neuro: alert Nena Mota NP Feb 16, 2020 12:09
--- NOTE | 2020-02-16 13:03 | Nephrology Progress Note ---
Assessment/Plan Problem List: (1) ARF (acute renal failure) (2) Pacemaker (3) Sepsis (4) Hyponatremia Assessment (1) JAVIER (acute kidney injury) (2) Renal failure (ARF), acute on chronic (3) Feeding by G-tube (4) Tracheostomy in place (5) Electrolyte imbalance, hyponatremia (6) Anemia, severe (7) Respiratory failure, acute and chronic (8) Elevated lipase, pancreatitis (9) Elevated troponin I (10) Sepsis Plan February 15: Labs reviewed. Abnormal electrolytes addressed. Continue to be stable from renal standpoint of view off dialysis. February 14: Labs reviewed. Abnormal electrolytes addressed. Patient has not been dialyzed since February 07. Continue to monitor renal parameters. February 13: Hemoglobin up to 9.2. Low potassium and low sodium addressed. Continue to monitor renal parameters. Hemodialysis as needed. February 12: Labs reviewed. Hemoglobin 6.8. Creatinine 3.7 and stable. Transfusion will defer to Dr. Radford. Continue to monitor CBC and CHEM panel. February 11: Labs reviewed. Serum creatinine 3.6. Low potassium addressed. Dialysis as needed. Will monitor renal parameters. February 10: Labs reviewed. Potassium replaced. Serum sodium 132. Check labs tomorrow. Dialysis as needed. February 09: No labs drawn today. Last dialysis February 07. Will check lab tomorrow. Hemodialysis as needed. February 08: Labs reviewed. Dialyzed yesterday. Stable from renal standpoint of view. Continue to monitor electrolytes and order dialysis as needed. February 07: Labs reviewed. Due for dialysis today. Continue per consultants. February 06: Labs reviewed. Last dialysis February 03. Will postpone today's dialysis to tomorrow. Continue per current treatment plan. February 05: Labs reviewed. Last dialysis February 03. Will order dialysis tomorrow. Waiting for tunneled catheter placement. February 04: Labs reviewed. Dialyzed yesterday. With a plan for insertion of a tunneled dialysis catheter and discontinue left groin dialysis catheter afterwards. Check labs in a.m. Discussed with Dr. Dong. February 03: Labs reviewed. Due for dialysis today. Continue per consultants. February 02: Labs reviewed. Will order dialysis tomorrow. Continue per consultants. February 01: Labs reviewed. Creatinine gradually rising. Will dialyze as needed. Continue to monitor renal parameters. January 31: Last dialysis January 29. Labs reviewed. No need for dialysis today. Continue per current management. Hemodialysis as needed. Will check renal parameters and chemistries tomorrow. January 30: Patient was dialyzed yesterday. No labs drawn today. Continue to monitor renal parameters and dialyze as needed. Continue per consultants and PMD. January 29: Patient due for dialysis today. Today's can panel reviewed. Continue to monitor renal parameters and dialysis as needed. January 28: Patient last dialyzed January 26. No labs drawn today. Will order dialysis tomorrow. Check chemistry panel tomorrow. Continue per consultants. January 27: Patient was dialyzed yesterday . Labs were reviewed. Electrolytes within normal limit. Blood pressure stable. January 26: When visited the patient earlier today the patient was on dialysis. Tolerating well. Labs reviewed. Blood pressure stable. January 25: Dialysis for tomorrow. Labs reviewed. Hemoglobin remains low. Will adjust blood pressure medication. Hydralazine added to the regimen January 24: Last dialyzed January 22. Labs reviewed. Status quo. Will dialyze as needed. Low hemoglobin noted. Transfusion per PMD decision. Epogen started. \January 23: Dialyzed yesterday. Today's labs reviewed. Continue to monitor renal parameters and arrange for dialysis as needed. Continue per PMD. January 22: Seen earlier during dialysis. Labs reviewed. Medication list reviewed. Continue current management. January 21: Labs reviewed. Medication list reviewed. Next hemodialysis tomorrow. Blood pressure medication adjusted. January 20: Dialyzed yesterday. Labs reviewed. Continue per current management. Dialysis as needed. Add Norvasc to blood pressure regimen January 19: Due for dialysis today. Labs reviewed. Continue her current management. Continue to monitor renal parameters and electrolytes. January 18: Dialyzed yesterday. Labs reviewed. Renal parameters electrolytes much improved. Dialysis again tomorrow. Continue rest. January 17: Dialyzed this morning. Labs reviewed. Renal parameters and electrolyte abnormalities improved. Discussed with RN. Continue per consultants. January 16: Dialyzed yesterday. Labs improved. Next dialysis tomorrow. Continue per consultants. January 15: Patient to have dialysis catheter. Emergency dialysis for correction of uremia and electrolyte imbalances Antibiotics Transfusion Continue to monitor renal parameters Per orders Discussed with RN Subjective ROS Limited/Unobtainable: Yes Objective Objective Last 24 Hour Vital Signs Date Time Temp Pulse Resp B/P (MAP) Pulse Ox O2 Delivery O2 Flow Rate FiO2 02/16/20 12:31 148/84 02/16/20 12:30 148/84 02/16/20 12:00 98.2 59 15 148/84 (105) 96 02/16/20 09:09 142/87 02/16/20 09:08 57 142/87 02/16/20 09:08 57 142/87 02/16/20 08:00 98.2 57 15 142/87 (105) 100 02/16/20 08:00 Mechanical Ventilator Mechanical Ventilator 02/16/20 08:00 40 02/16/20 07:46 58 02/16/20 05:37 139/63 02/16/20 04:00 99.1 60 20 139/63 (88) 98 02/16/20 04:00 Mechanical Ventilator Mechanical Ventilator 02/16/20 04:00 63 02/16/20 04:00 40 02/16/20 01:15 145/67 02/16/20 00:53 57 15 40 02/16/20 00:00 59 02/16/20 00:00 98.6 64 24 145/67 (93) 99 02/16/20 00:00 40 02/15/20 23:58 Mechanical Ventilator Mechanical Ventilator 02/15/20 23:30 98.6 02/15/20 22:40 75 113/71 02/15/20 20:02 40 02/15/20 20:00 98.7 73 19 113/71 (85) 97 02/15/20 20:00 75 02/15/20 19:58 Mechanical Ventilator Mechanical Ventilator 02/15/20 18:30 60 17 40 02/15/20 17:56 149/71 02/15/20 17:56 149/71 02/15/20 17:56 66 149/71 02/15/20 16:00 40 02/15/20 16:00 Mechanical Ventilator Mechanical Ventilator 02/15/20 16:00 99.0 68 22 129/99 (109) 97 02/15/20 15:35 62 02/15/20 15:35 99.0 68 22 129/99 (109) 97 02/15/20 14:30 63 15 40 Intake and Output 02/15/20 02/16/20 19:00 07:00 Intake Total 680 ml 485 ml Output Total 500 ml Balance 680 ml -15 ml Free Water 260 ml 100 ml Tube Feeding 420 ml 385 ml Output Urine Total 500 ml Laboratory Tests 02/15/20 17:59: POC Whole Blood Glucose [Pending] 02/16/20 04:49: White Blood Count 8.1, Red Blood Count 3.02L, Hemoglobin 8.4L, Hematocrit 25.8L, Mean Corpuscular Volume 85, Mean Corpuscular Hemoglobin 27.7, Mean Corpuscular Hemoglobin Concent 32.4, Red Cell Distribution Width 15.3H, Platelet Count 267, Mean Platelet Volume 5.3L, Neutrophils (%) (Auto) 69.9, Lymphocytes (%) (Auto) 20.8, Monocytes (%) (Auto) 5.4, Eosinophils (%) (Auto) 2.7, Basophils (%) (Auto) 1.1, Sodium Level 136, Potassium Level 3.4L, Chloride Level 100, Carbon Dioxide Level 28, Anion Gap 8, Blood Urea Nitrogen 83H, Creatinine 3.9H, Estimat Glomerular Filtration Rate 12.4, Glucose Level 79, Osmolality [Pending], Uric Acid 5.7, Calcium Level 9.7, Phosphorus Level 3.6, Magnesium Level 3.4H, Total Bilirubin 0.4, Aspartate Amino Transf (AST/SGOT) 18, Alanine Aminotransferase (ALT/SGPT) 6L, Alkaline Phosphatase 149H, Total Protein 6.9, Albumin 1.9L, Globulin 5.0, Albumin/Globulin Ratio 0.4L, Triglycerides Level 104, Cholesterol Level 86, LDL Cholesterol 43, HDL Cholesterol 30L, Cholesterol/HDL Ratio 2.9L, Thyroid Stimulating Hormone (TSH) 2.800 Height (Feet): 5 Height (Inches): 6.00 Weight (Pounds): 150 General Appearance: no apparent distress Cardiovascular: normal rate Respiratory/Chest: decreased breath sounds Abdomen: distended Objective No change Johnny Houston MD Feb 16, 2020 13:03
--- NOTE | 2020-02-16 13:25 | Pulmonology Progress Note ---
Subjective ROS Limited/Unobtainable: Yes Interval Events: none major reported per nursing Constitutional: Reports: no symptoms HEENT: Repors: no symptoms Respiratory: Reports: no symptoms Cardiovascular: Reports: no symptoms Gastrointestinal/Abdominal: Reports: no symptoms Allergies: Coded Allergies: No Known Allergies (Unverified , 10/10/17) All Systems: reviewed and negative except above Objective Last 24 Hour Vital Signs Date Time Temp Pulse Resp B/P (MAP) Pulse Ox O2 Delivery O2 Flow Rate FiO2 02/16/20 12:31 148/84 02/16/20 12:30 148/84 02/16/20 12:00 98.2 59 15 148/84 (105) 96 02/16/20 09:09 142/87 02/16/20 09:08 57 142/87 02/16/20 09:08 57 142/87 02/16/20 08:00 98.2 57 15 142/87 (105) 100 02/16/20 08:00 Mechanical Ventilator Mechanical Ventilator 02/16/20 08:00 40 02/16/20 07:46 58 02/16/20 05:37 139/63 02/16/20 04:00 99.1 60 20 139/63 (88) 98 02/16/20 04:00 Mechanical Ventilator Mechanical Ventilator 02/16/20 04:00 63 02/16/20 04:00 40 02/16/20 01:15 145/67 02/16/20 00:53 57 15 40 02/16/20 00:00 59 02/16/20 00:00 98.6 64 24 145/67 (93) 99 02/16/20 00:00 40 02/15/20 23:58 Mechanical Ventilator Mechanical Ventilator 02/15/20 23:30 98.6 02/15/20 22:40 75 113/71 02/15/20 20:02 40 02/15/20 20:00 98.7 73 19 113/71 (85) 97 02/15/20 20:00 75 02/15/20 19:58 Mechanical Ventilator Mechanical Ventilator 02/15/20 18:30 60 17 40 02/15/20 17:56 149/71 02/15/20 17:56 149/71 02/15/20 17:56 66 149/71 02/15/20 16:00 40 02/15/20 16:00 Mechanical Ventilator Mechanical Ventilator 02/15/20 16:00 99.0 68 22 129/99 (109) 97 02/15/20 15:35 62 02/15/20 15:35 99.0 68 22 129/99 (109) 97 02/15/20 14:30 63 15 40 Intake and Output 02/15/20 02/16/20 18:59 06:59 Intake Total 645 ml 520 ml Output Total 500 ml Balance 645 ml 20 ml Free Water 260 ml 100 ml Tube Feeding 385 ml 420 ml Output Urine Total 500 ml Objective saturating well on current vent setting General Appearance: no acute distress HEENT: normocephalic, other - trach Respiratory: chest wall non-tender, other - coarse lung sounds Cardiovascular: normal rate, regular rhythm, other - s/p pacemaker, October 2018 Abdomen: soft, non tender Genitourinary: other - Norman Extremities: other - trace edema Laboratory Tests 02/15/20 17:59: POC Whole Blood Glucose [Pending] 02/16/20 04:49: White Blood Count 8.1, Red Blood Count 3.02L, Hemoglobin 8.4L, Hematocrit 25.8L, Mean Corpuscular Volume 85, Mean Corpuscular Hemoglobin 27.7, Mean Corpuscular Hemoglobin Concent 32.4, Red Cell Distribution Width 15.3H, Platelet Count 267, Mean Platelet Volume 5.3L, Neutrophils (%) (Auto) 69.9, Lymphocytes (%) (Auto) 20.8, Monocytes (%) (Auto) 5.4, Eosinophils (%) (Auto) 2.7, Basophils (%) (Auto) 1.1, Sodium Level 136, Potassium Level 3.4L, Chloride Level 100, Carbon Dioxide Level 28, Anion Gap 8, Blood Urea Nitrogen 83H, Creatinine 3.9H, Estimat Glomerular Filtration Rate 12.4, Glucose Level 79, Osmolality [Pending], Uric Acid 5.7, Calcium Level 9.7, Phosphorus Level 3.6, Magnesium Level 3.4H, Total Bilirubin 0.4, Aspartate Amino Transf (AST/SGOT) 18, Alanine Aminotransferase (ALT/SGPT) 6L, Alkaline Phosphatase 149H, Total Protein 6.9, Albumin 1.9L, Globulin 5.0, Albumin/Globulin Ratio 0.4L, Triglycerides Level 104, Cholesterol Level 86, LDL Cholesterol 43, HDL Cholesterol 30L, Cholesterol/HDL Ratio 2.9L, Thyroid Stimulating Hormone (TSH) 2.800 Current Medications Medications (Trade) Dose Ordered Sig/Penny Route PRN Reason Start Time Stop Time Status Last Admin Dose Admin Acetaminophen (Tylenol) 500 mg Q6H PRN GT FEVER 01/21/20 20:45 02/20/20 20:44 02/12/20 00:42 Acetaminophen (Tylenol) 650 mg Q6H PRN GT Mild Pain (Pain Scale 1-3) 02/09/20 17:15 03/10/20 17:14 02/09/20 17:39 Acetaminophen/ Hydrocodone Bitart ([place] 5/325) 1 tab Q6H PRN GT moderate-severe pain (7-10) 02/14/20 15:30 02/21/20 15:29 02/15/20 22:43 Amantadine HCl (Symmetrel) 100 mg TWICE A DAY GT 01/31/20 18:00 03/01/20 17:59 02/16/20 09:06 Amlodipine Besylate (Norvasc) 5 mg BID GT 01/22/20 18:00 02/20/20 15:44 02/16/20 09:08 Aspirin (ASA) 81 mg DAILY GT 01/20/20 09:00 03/05/20 08:59 02/16/20 09:06 Atorvastatin Calcium (Lipitor) 10 mg BEDTIME GT 01/17/20 21:00 04/16/20 20:59 02/15/20 22:40 Chlorhexidine Gluconate (Ling-Hex 2%) 1 applic DAILY@199901/17/20 20:00 04/16/20 19:59 02/15/20 22:39 Dextrose (Dextrose 50%) 25 ml Q30M PRN IV Hypoglycemia 01/15/20 22:15 04/14/20 22:14 Dextrose (Dextrose 50%) 50 ml Q30M PRN IV Hypoglycemia 01/15/20 22:15 04/14/20 22:14 01/22/20 17:54 Docusate Sodium (Colace) 200 mg BIDPRN PRN GT Constipation 01/31/20 07:45 03/01/20 07:44 02/15/20 22:40 Epoetin Gelacio (Epoetin Gelacio(ESRD on dialysis)) 2,000 unit SUBQ 02/14/20 21:00 05/14/20 20:59 02/14/20 21:57 Epoetin Gelacio (Epoetin Gelacio(ESRD on dialysis)) 8,000 unit SUBQ 02/14/20 21:00 05/14/20 20:59 02/14/20 21:57 Hydralazine HCl (Apresoline) 25 mg Q6HR GT 01/26/20 18:15 04/25/20 18:14 02/16/20 12:31 Isosorbide Dinitrate (Isordil) 20 mg TID GT 01/25/20 09:00 02/19/20 08:59 02/16/20 12:30 Lactulose (Cephulac) 20 gm THREE TIMES A DAY GT 02/04/20 13:00 03/05/20 12:59 02/16/20 12:29 Lansoprazole (Prevacid) 30 mg BID GT 01/19/20 18:00 02/18/20 17:59 02/16/20 09:06 Metoclopramide HCl (Reglan) 5 mg EVERY 6 HOURS GT 02/15/20 18:00 03/16/20 17:59 02/16/20 12:29 Metoprolol Tartrate (Lopressor) 25 mg Q12HR ORAL 01/27/20 21:00 04/22/20 20:59 02/16/20 09:08 Polyethylene Glycol (Miralax) 17 gm BEDTIME GT 02/04/20 21:00 03/05/20 20:59 02/15/20 22:39 Sodium Hypochlorite (Dakin's Quarter Strength) 1 applic DAILY TOPIC 01/30/20 09:00 02/29/20 08:59 02/16/20 09:09 Zinc Oxide (Zinc Oxide) 1 applic TIDPRN PRN TOPIC diogenes GT 01/16/20 13:15 04/15/20 13:14 01/16/20 14:55 Assessment/Plan Assessment/Plan 1. Large left effusion. - S/p thoracentesis; CXR better - pleural fluid pathology report: negative for malignant cell 2. Chronic respiratory failure. - Continue trach care - Cont AC mode - Currently saturating at 97% 3. Sepsis; improving 4. Anemia - s/p transfusion - s/p Epogen Hyponatremia, hypokalemia - Dr. Houston following s/p HD on broad-spectrum antibiotics. Pulmonary hygiene. DVT and GI prophylaxes. Dc planning in place FiO2 increased previously to 60%; now decreased to 40%; will wean further as tolerated The care for this patient was discussed with my supervising physician Time spent for this case was approximately 31 minutes Cruz Wilson Feb 16, 2020 13:25
--- NOTE | 2020-02-16 13:25 | Surgery Progress Note ---
Surgery Progress Note Subjective Procedure Performed Left femoral temporary hemodialysis catheter insertion Additional Comments afebrile, HD stable, labs stable comfortable no complaints Objective Last 24 Hour Vital Signs Date Time Temp Pulse Resp B/P (MAP) Pulse Ox O2 Delivery O2 Flow Rate FiO2 02/16/20 12:31 148/84 02/16/20 12:30 148/84 02/16/20 12:00 98.2 59 15 148/84 (105) 96 02/16/20 09:09 142/87 02/16/20 09:08 57 142/87 02/16/20 09:08 57 142/87 02/16/20 08:00 98.2 57 15 142/87 (105) 100 02/16/20 08:00 Mechanical Ventilator Mechanical Ventilator 02/16/20 08:00 40 02/16/20 07:46 58 02/16/20 05:37 139/63 02/16/20 04:00 99.1 60 20 139/63 (88) 98 02/16/20 04:00 Mechanical Ventilator Mechanical Ventilator 02/16/20 04:00 63 02/16/20 04:00 40 02/16/20 01:15 145/67 02/16/20 00:53 57 15 40 02/16/20 00:00 59 02/16/20 00:00 98.6 64 24 145/67 (93) 99 02/16/20 00:00 40 02/15/20 23:58 Mechanical Ventilator Mechanical Ventilator 02/15/20 23:30 98.6 02/15/20 22:40 75 113/71 02/15/20 20:02 40 02/15/20 20:00 98.7 73 19 113/71 (85) 97 02/15/20 20:00 75 02/15/20 19:58 Mechanical Ventilator Mechanical Ventilator 02/15/20 18:30 60 17 40 02/15/20 17:56 149/71 02/15/20 17:56 149/71 02/15/20 17:56 66 149/71 02/15/20 16:00 40 02/15/20 16:00 Mechanical Ventilator Mechanical Ventilator 02/15/20 16:00 99.0 68 22 129/99 (109) 97 02/15/20 15:35 62 02/15/20 15:35 99.0 68 22 129/99 (109) 97 02/15/20 14:30 63 15 40 I&O Intake and Output 02/15/20 02/16/20 19:00 07:00 Intake Total 680 ml 485 ml Output Total 500 ml Balance 680 ml -15 ml Free Water 260 ml 100 ml Tube Feeding 420 ml 385 ml Output Urine Total 500 ml Dressing: saturated Cardiovascular: RSR Respiratory: decreased breath sounds Abdomen: soft, flat, non-tender, present bowel sounds, non-distended Extremities: edema, no tenderness, no cyanosis Laboratory Tests Test 02/15/20 17:59 02/16/20 04:49 POC Whole Blood Glucose Pending White Blood Count 8.1 K/UL (4.8-10.8) Red Blood Count 3.02 M/UL (4.20-5.40) L Hemoglobin 8.4 G/DL (12.0-16.0) L Hematocrit 25.8 % (37.0-47.0) L Mean Corpuscular Volume 85 FL (80-99) Mean Corpuscular Hemoglobin 27.7 PG (27.0-31.0) Mean Corpuscular Hemoglobin Concent 32.4 G/DL (32.0-36.0) Red Cell Distribution Width 15.3 % (11.6-14.8) H Platelet Count 267 K/UL (150-450) Mean Platelet Volume 5.3 FL (6.5-10.1) L Neutrophils (%) (Auto) 69.9 % (45.0-75.0) Lymphocytes (%) (Auto) 20.8 % (20.0-45.0) Monocytes (%) (Auto) 5.4 % (1.0-10.0) Eosinophils (%) (Auto) 2.7 % (0.0-3.0) Basophils (%) (Auto) 1.1 % (0.0-2.0) Sodium Level 136 MMOL/L (136-145) Potassium Level 3.4 MMOL/L (3.5-5.1) L Chloride Level 100 MMOL/L (98-107) Carbon Dioxide Level 28 MMOL/L (21-32) Anion Gap 8 mmol/L (5-15) Blood Urea Nitrogen 83 mg/dL (7-18) H Creatinine 3.9 MG/DL (0.55-1.30) H Estimat Glomerular Filtration Rate 12.4 mL/min (>60) Glucose Level 79 MG/DL (74-106) Osmolality Pending Uric Acid 5.7 MG/DL (2.6-7.2) Calcium Level 9.7 MG/DL (8.5-10.1) Phosphorus Level 3.6 MG/DL (2.5-4.9) Magnesium Level 3.4 MG/DL (1.8-2.4) H Total Bilirubin 0.4 MG/DL (0.2-1.0) Aspartate Amino Transf (AST/SGOT) 18 U/L (15-37) Alanine Aminotransferase (ALT/SGPT) 6 U/L (12-78) L Alkaline Phosphatase 149 U/L (46-116) H Total Protein 6.9 G/DL (6.4-8.2) Albumin 1.9 G/DL (3.4-5.0) L Globulin 5.0 g/dL Albumin/Globulin Ratio 0.4 (1.0-2.7) L Triglycerides Level 104 MG/DL (30-150) Cholesterol Level 86 MG/DL (< 200) LDL Cholesterol 43 mg/dL (<100) HDL Cholesterol 30 MG/DL (40-60) L Cholesterol/HDL Ratio 2.9 (3.3-4.4) L Thyroid Stimulating Hormone (TSH) 2.800 uiU/mL (0.358-3.740) Plan Problems: (1) Dehydration (2) Acidosis (3) Depression (4) Pleural effusion (5) Respiratory failure (6) Schizophrenia (7) Hypoxia (8) UTI (urinary tract infection) (9) Pneumonia (10) NSTEMI (non-ST elevated myocardial infarction) (11) Tracheostomy in place (12) Feeding by G-tube (13) JAVIER (acute kidney injury) (14) Acute encephalopathy (15) Sacral decubitus ulcer, stage IV (16) Chronic respiratory failure (17) Ascites (18) Bacteremia (19) Hypernatremia (20) Proteinuria (21) Electrolyte imbalance (22) ACS (acute coronary syndrome) (23) Aortic dissection, thoracic (24) Respiratory failure, acute and chronic (25) JAVIER (acute kidney injury) (26) Abrasion of lip, initial encounter (27) COPD with exacerbation (28) Elevated alkaline phosphatase level (29) Renal failure (ARF), acute on chronic (30) HCAP (healthcare-associated pneumonia) (31) GT CLOGGED (32) Elevated lipase (33) Pancreatitis (34) Elevated troponin (35) Hypokalemia (36) Hyponatremia (37) Anemia (38) Renal failure (39) ARF (acute renal failure) (40) Pacemaker (41) Sepsis Assessment & Plan: leukocytosis anemia on HD renal insufficiency wounds addressed pancreatitis cont diet as tolerating trend labs lf'ts okay bleeding from permacath site suture used and hemostasis obtained plan removal of fem line if stable tomorrow pt presented on admission with Tracheostomy ,GT and Multiple Pressure Injuries. Skin assessment of skin under tracheal collar without evidence of skin breakdown. Peristomal GT site excoriated.Moderate amt of dark red sanguineous exudate. Full Thickness Sacral Pressure Injury with undermined borders (L)9 cm x (W)12cm x (D)1.8cm,Undermining clockwise8-9 by 2.2cm @1o'clock,undermining clockwise 1-4 by 1.9 @ 9'oclock Scattered necrotic tissue within wound bed. Borders are loose and necrotic with marginal erythema to outer perimeter of wound. NO elevation in skin temp noted periwound. Wound is malodorous. Small amt Brown exudate noted. Resolving Pressure Injury L Ischium(L)1.5cm x (W)1.5cm. Base of wound is 80% pink epithelial with an area that is moist and pink. NO odor or exudate noted. Bilat foot-drop noted. L Heel is boggy with non-blanchable erythema(L)4cm x (W)4cm. R heel is boggy with non-Blanchable erythema(L)5cm x (W)6cm. Tx.Plan: Cleanse sacral wound with Dakin's 0.125% annie. Loosely pack with Dakin's moistened Kerlix(Attention to undermined borders). Apply Moisture Barrier Paste periwound. Cover with Optifoam drsg. Change Daily and PRN. Apply Cavilon Skin Barrier to R and L Hels. Cover each heel with Optifoam drsg. Change every 7 days and prn. Reposition at least every 2hours or as tolerated. Off-load heels with Pillow. APM/JENNIFER MAttress overlay DAILY ESTIMATED NEEDS: Needs based on Critical care, wound, renal dysfunction 56 kg abw 28-33 kcals/kg [id number] total kcals W/ HD (1.5-2.0) g protein/kg 84-112 g total protein Fluid per MD NUTRITION DIAGNOSIS: * Swallowing difficulty R/T dysphagia, respiratory status as evidenced by vent dep via trach, GT Dep. * Increase kcal and pro needs r/t wound healing, renal dysfunction as evidenced by admitted w/ stage 4 sacral wound, admitted w/ JAVIER, now on HD. CURRENT TF: Nepro @ 40ml/hr x 24 hrs-> now @35ml/hr ENTERAL NUTRITION RECOMMENDATIONS: Nepro @ 40ml/hr x 24 hrs + Prosource 1pkt QD to provide 960ml, 1728kcal, 78g+11g prot, 698ml free water * As medically appropriate, increase TF goal rate to 40ml/hr x 24 hrs * Add Prosource 1pkt QD to better meet increased protein needs (additional 11g prot) * Water flush per MD/ HOB over 30 degrees ADDITIONAL RECOMMENDATIONS: * Per SNF in NOV 2019: HT=63"/ Rec daily calibrated bedscale wt * Monitor for continuity of HD, last HD 02/07 * Rec phos binders- consistently elevated phos level -> now wnl * Wound care: add Nephrovite x 1, ZnSO4 220mg QD x 10 days Reynaldo BID via PEG (mix w/ 2-4 oz water); vit C per nephro * Monitor TF tolerance: TF lowered for GT leak, increase as able * Add bowel regimen: now added, last BM 02/09 (42) Hyponatremia Lane Saavedra Feb 16, 2020 13:25
--- NOTE | 2020-02-16 15:47 | General Progress Note ---
Subjective Allergies: Coded Allergies: No Known Allergies (Unverified , 10/10/17) Subjective Above noted d/w Rn NGT replaced with 20 Fr GT replacement Objective Last 24 Hour Vital Signs Date Time Temp Pulse Resp B/P (MAP) Pulse Ox O2 Delivery O2 Flow Rate FiO2 02/16/20 12:31 148/84 02/16/20 12:30 148/84 02/16/20 12:00 98.2 59 15 148/84 (105) 96 02/16/20 12:00 40 02/16/20 09:09 142/87 02/16/20 09:08 57 142/87 02/16/20 09:08 57 142/87 02/16/20 08:00 98.2 57 15 142/87 (105) 100 02/16/20 08:00 Mechanical Ventilator Mechanical Ventilator 02/16/20 08:00 40 02/16/20 07:46 58 02/16/20 05:37 139/63 02/16/20 04:00 99.1 60 20 139/63 (88) 98 02/16/20 04:00 Mechanical Ventilator Mechanical Ventilator 02/16/20 04:00 63 02/16/20 04:00 40 02/16/20 01:15 145/67 02/16/20 00:53 57 15 40 02/16/20 00:00 59 02/16/20 00:00 98.6 64 24 145/67 (93) 99 02/16/20 00:00 40 02/15/20 23:58 Mechanical Ventilator Mechanical Ventilator 02/15/20 23:30 98.6 02/15/20 22:40 75 113/71 02/15/20 20:02 40 02/15/20 20:00 98.7 73 19 113/71 (85) 97 02/15/20 20:00 75 02/15/20 19:58 Mechanical Ventilator Mechanical Ventilator 02/15/20 18:30 60 17 40 02/15/20 17:56 149/71 02/15/20 17:56 149/71 02/15/20 17:56 66 149/71 02/15/20 16:00 40 02/15/20 16:00 Mechanical Ventilator Mechanical Ventilator 02/15/20 16:00 99.0 68 22 129/99 (109) 97 Intake and Output 02/15/20 02/16/20 19:00 07:00 Intake Total 680 ml 485 ml Output Total 500 ml Balance 680 ml -15 ml Free Water 260 ml 100 ml Tube Feeding 420 ml 385 ml Output Urine Total 500 ml Laboratory Tests 02/15/20 17:59: POC Whole Blood Glucose [Pending] 02/16/20 04:49: White Blood Count 8.1, Red Blood Count 3.02L, Hemoglobin 8.4L, Hematocrit 25.8L, Mean Corpuscular Volume 85, Mean Corpuscular Hemoglobin 27.7, Mean Corpuscular Hemoglobin Concent 32.4, Red Cell Distribution Width 15.3H, Platelet Count 267, Mean Platelet Volume 5.3L, Neutrophils (%) (Auto) 69.9, Lymphocytes (%) (Auto) 20.8, Monocytes (%) (Auto) 5.4, Eosinophils (%) (Auto) 2.7, Basophils (%) (Auto) 1.1, Sodium Level 136, Potassium Level 3.4L, Chloride Level 100, Carbon Dioxide Level 28, Anion Gap 8, Blood Urea Nitrogen 83H, Creatinine 3.9H, Estimat Glomerular Filtration Rate 12.4, Glucose Level 79, Osmolality [Pending], Uric Acid 5.7, Calcium Level 9.7, Phosphorus Level 3.6, Magnesium Level 3.4H, Total Bilirubin 0.4, Aspartate Amino Transf (AST/SGOT) 18, Alanine Aminotransferase (ALT/SGPT) 6L, Alkaline Phosphatase 149H, Total Protein 6.9, Albumin 1.9L, Globulin 5.0, Albumin/Globulin Ratio 0.4L, Triglycerides Level 104, Cholesterol Level 86, LDL Cholesterol 43, HDL Cholesterol 30L, Cholesterol/HDL Ratio 2.9L, Thyroid Stimulating Hormone (TSH) 2.800 Height (Feet): 5 Height (Inches): 6.00 Weight (Pounds): 150 Objective NCAT (+) trach Coarse BS RR soft ND NT, GT changed no edema Assessment/Plan Assessment/Plan: Assessment/Plan (1) Hx of CABG (2) Resp failure, s/p tracheostomy (3) Dysphagia, s/p PEG , s/p GT change (4) S/P aortic dissection repair (5) Renal failure (6) Anemia Assessment/Plan: stable H&H follow labs OK to use GT obtain and replace GT HD per nephrology Edmund Farris MD Feb 16, 2020 15:47
[2020-02-16 16:00] VITALS: BP 150/78
--- NOTE | 2020-02-16 19:14 | NUR ---
NURSE HAND-OFF REPORT: Important Events on Shift: Re-nserted gt by Dr. Farris Patient Status: pt. remain stable Diet: Nepro Pending Orders: n Pending Results/Labs:n Pending MD notification:n Latest Vital Signs: Temperature 98.0 , Pulse 61 , B/P 150 /78 , Respiratory Rate 17 , O2 SAT 99 , Mechanical Ventilator, O2 Flow Rate . Vital Sign Comment: wnl EKG Rhythm: Sinus Rhythm Rhythm change?: N MD Notified?: N -Dr. Екатерина HATFIELD Response: Order Received& Read Back Latest Chavarria Fall Score: 70 Fall Risk: High Risk Safety Measures: Call light Within Reach, Bed Alarm Zone 1, Side Rails Side Rails x2, Bed position Low and Locked. Fall Precautions: Yellow Socks Report given to Mckinley Austin RN.
--- NOTE | 2020-02-16 19:15 | NUR ---
NURSE NOTES: Received report from Annie eLo RN Alert and Ox1-2 Opens eyes spontaneously. In no apparent distress. Follows simple commands. Soft restraints in place. Tolerating GT feeding well w/no residual noted. HOB elevated 45 degrees. Respirations even and unlabored. Trach to vent saturating 99% with current setting. No signs of respiratory distress or SOB noted. Norman draining well. SR on quality assurance monitor body. Bed in lowest position, call light within reach. Bed alarm engaged. Continue to POC
[2020-02-16 20:00] VITALS: BP 157/68
[2020-02-16] MEDS: Miralax 17gm pkt GT SCH (20:34)
[2020-02-16] MEDS: HYDROcodone/Acetamin 5/325 tab GT PRN (21:33)
--- NOTE | 2020-02-16 23:00 | NUR ---
NURSE NOTES: Condition unchanged. Respirations even and unlabored. VSS stable. Afebrile. Oral care done. Saturating well with current vent setting. No distress noted.
[2020-02-17] VITALS: BP 146/87
[2020-02-17 04:00] VITALS: BP 142/65
--- NOTE | 2020-02-17 04:00 | NUR ---
NURSE NOTES: Condition unchanged. Respirations even and unlabored. VSS stable. Afebrile. Saturating well with current vent setting. Slept well. No distress noted.
[2020-02-17] MEDS: HydrALAZINE 25mg tab GT SCH ×3 (05:41→17:43)
[2020-02-17] MEDS: Metoclopramide 10mg/10ml Liq GT SCH ×3 (05:41→17:42)
--- NOTE | 2020-02-17 06:55 | Hematology/Onc Progress Note ---
Assessment/Plan Assessment/Plan IM note Covering for Dr. Dong Assessment and Recs # Leukocytosis, now with pna v other process --> Cxr: : Large left pleural effusion, Bilateral interstitial and airspace infiltrates versus edema --> wbc 16-->26->30-->10->8 --> ABX zosyn-->angelo/vanc-->angelo/tobra->off --> ID recs are noted --> smear has been reviewed # Anemia of chronic disease due to underlying chronic medical issues, multifactorial --> Anemia workup has been reviewed, cw acd --> No evidence of hemolysis is noted, peripheral smear has been reviewed. --> Hgb goal >7. Transfuse prn. --> Epogen required, to continue --> Medications have been reviewed --> low threshold for gi evaluation in case has occult + --> hgb 7.1-->7.8-->>>5.9-->7.3-->7-->7.2-->7.9-->8.6-->8.2-->8.5-->7->8.5->6.8-->9.2 --> 1 unit prbc1/, 2 units 01/15. 02/06, 02/12 --> gi eval as needed # Coagulopathy with inr 1.5 --> consider vit k/ffp as needed preprocedure --> labs noted # JAVIER initially >2 --> on ivfs --> per renal # Elevated d-dimer --> venous duplex ordered-->reviewed, is neg --> in prior neg # Dysphagia s/p peg --> as per gi # Thoracic aortic dissection --> s/p repair early 2017 # Chronic Resp failure -> s/p trach/vent # Psychiatric history on ativan/haldol # [place] resident # Dvt ppx --> scds The timing of this note does not necessarily reflect the time of the patient was seen. Greatly appreciate consultation. Subjective HEENT: Denies: no symptoms, eye pain, blurred vision, tearing, double vision, ear pain, ear discharge, nose pain, nose congestion, throat pain, throat swelling, mouth pain, mouth swelling, other Gastrointestinal/Abdominal: Denies: no symptoms, abdomen distended, abdominal pain, black stools, tarry stools, blood in stool, constipated, diarrhea, difficulty swallowing, nausea, poor appetite, poor fluid intake, rectal bleeding, vomiting, other Genitourinary: Denies: no symptoms, burning, discharge, frequency, flank pain, hematuria, incontinence, pain, urgency, other Neurologic/Psychiatric: Denies: no symptoms, anxiety, depressed, emotional problems, headache, numbness, paresthesia, pre-existing deficit, seizure, tin gling, tremors, weakness, other Endocrine: Denies: no symptoms, excessive sweating, flushing, intolerance to cold, intolerance to heat, increased hunger, increased thirst, increased urine, unexplained weight gain, unexplained weight loss, other Allergies: Coded Allergies: No Known Allergies (Unverified , 10/10/17) Subjective 01/16 left femoral arden in place, on vent, icu, hgb better 01/18 labs are noted, wbc 30, hgb 7, may require prbc today 01/27 is off amio, on epoogen, hgb reviewed, 7.2, transfuse if unstable 01/28 pain meds given, some foaming around mouth, no bleeding 01/29 hd was done yesterday, no bleedig, cbc pending, asa given 01/30 labs are noted, no bleeding, labs reviewed, pending meds 02/01 labs are noted, no bleeding, meds reviewed, no f/c, trach/vent 02/02 labs noted, no night sweats, t/v, labs ordered for am 02/03 labs reviewed, meds noted, no bleeding, hgb 7.9 02/04 meds noted, no bleeding, labs reviewed, hgb 8 02/05 labs are pending, some secretions are noted, no bleeding 02/[address] still with bleed roman Rn, will place seal/further pressure 02/08 labs reviewed, grimacing, meds noted, vitals noted, seen by cards 02/09 on vent, meds reviewed, hd as per renal, labs pending 02/10 vent, comfortable, no bleeding or chills, hgb stable 02/11 nv, on vent, hgb 8.5, no new events, stable, roman Woodall 02/12 nv, trach to vent, hgb 6.8 to get 1 unit prbc 02/13 nv, labs reviewed, hgb has improved, remains on a vent 02/14:remains on abx treatment no bleeding reported 02/15: tolerating vent settings, no distress 02/16 unchanged, on gt, trach/vent, no bleeding Objective Objective Current Medications Medications (Trade) Dose Ordered Sig/Penny Route PRN Reason Start Time Stop Time Status Last Admin Dose Admin Acetaminophen (Tylenol) 500 mg Q6H PRN GT FEVER 01/21/20 20:45 02/20/20 20:44 02/12/20 00:42 Acetaminophen (Tylenol) 650 mg Q6H PRN GT Mild Pain (Pain Scale 1-3) 02/09/20 17:15 03/10/20 17:14 02/09/20 17:39 Acetaminophen/ Hydrocodone Bitart ([place] 5/325) 1 tab Q6H PRN GT moderate-severe pain (7-10) 02/14/20 15:30 02/21/20 15:29 02/16/20 21:33 Amantadine HCl (Symmetrel) 100 mg TWICE A DAY GT 01/31/20 18:00 03/01/20 17:59 02/16/20 18:23 Amlodipine Besylate (Norvasc) 5 mg BID GT 01/22/20 18:00 02/20/20 15:44 02/16/20 18:23 Aspirin (ASA) 81 mg DAILY GT 01/20/20 09:00 03/05/20 08:59 02/16/20 09:06 Atorvastatin Calcium (Lipitor) 10 mg BEDTIME GT 01/17/20 21:00 04/16/20 20:59 02/16/20 21:31 Chlorhexidine Gluconate (Ling-Hex 2%) 1 applic DAILY@1999 TOPIC 02/17/20 20:00 05/17/20 19:59 Dextrose (Dextrose 50%) 25 ml Q30M PRN IV Hypoglycemia 01/15/20 22:15 04/14/20 22:14 Dextrose (Dextrose 50%) 50 ml Q30M PRN IV Hypoglycemia 01/15/20 22:15 04/14/20 22:14 01/22/20 17:54 Docusate Sodium (Colace) 200 mg BIDPRN PRN GT Constipation 01/31/20 07:45 03/01/20 07:44 02/15/20 22:40 Epoetin Gelacio (Epoetin Gelacio(ESRD on dialysis)) 2,000 unit SUBQ 02/14/20 21:00 05/14/20 20:59 02/14/20 21:57 Epoetin Gelacio (Epoetin Gelacio(ESRD on dialysis)) 8,000 unit MON- SUBQ 02/14/20 21:00 05/14/20 20:59 02/14/20 21:57 Hydralazine HCl (Apresoline) 25 mg Q6HR GT 01/26/20 18:15 04/25/20 18:14 02/17/20 05:41 Isosorbide Dinitrate (Isordil) 20 mg TID GT 01/25/20 09:00 02/19/20 08:59 02/16/20 18:23 Lactulose (Cephulac) 20 gm THREE TIMES A DAY GT 02/04/20 13:00 03/05/20 12:59 02/16/20 18:22 Lansoprazole (Prevacid) 30 mg BID GT 01/19/20 18:00 02/18/20 17:59 02/16/20 18:23 Metoclopramide HCl (Reglan) 5 mg EVERY 6 HOURS GT 02/15/20 18:00 03/16/20 17:59 02/17/20 05:41 Metoprolol Tartrate (Lopressor) 25 mg Q12HR ORAL 01/27/20 21:00 04/22/20 20:59 02/16/20 21:31 Polyethylene Glycol (Miralax) 17 gm BEDTIME GT 02/04/20 21:00 03/05/20 20:59 02/15/20 22:39 Sodium Hypochlorite (Dakin's Quarter Strength) 1 applic DAILY TOPIC 01/30/20 09:00 02/29/20 08:59 02/16/20 09:09 Zinc Oxide (Zinc Oxide) 1 applic TIDPRN PRN TOPIC diogenes GT 01/16/20 13:15 04/15/20 13:14 01/16/20 14:55 Last 24 Hour Vital Signs Date Time Temp Pulse Resp B/P (MAP) Pulse Ox O2 Delivery O2 Flow Rate FiO2 02/17/20 05:41 142/65 02/17/20 04:00 97.7 53 14 142/65 (90) 98 02/17/20 03:55 51 02/17/20 03:42 40 02/17/20 03:41 Mechanical Ventilator Mechanical Ventilator 02/17/20 00:05 58 14 40 02/17/20 00:00 Mechanical Ventilator Mechanical Ventilator 02/17/20 00:00 98.2 53 19 146/87 (106) 99 02/17/20 00:00 55 02/17/20 00:00 40 02/16/20 23:57 157/68 02/16/20 21:31 59 157/68 02/16/20 20:00 98.2 59 15 157/68 (97) 100 02/16/20 20:00 40 02/16/20 20:00 59 02/16/20 20:00 Mechanical Ventilator Mechanical Ventilator 02/16/20 19:05 53 14 40 02/16/20 18:23 150/78 02/16/20 18:23 150/78 02/16/20 18:23 61 150/78 02/16/20 16:00 Mechanical Ventilator Mechanical Ventilator 02/16/20 16:00 98.0 61 17 150/78 (102) 99 02/16/20 16:00 40 02/16/20 15:24 62 02/16/20 12:50 57 14 40 02/16/20 12:31 148/84 02/16/20 12:30 148/84 02/16/20 12:01 66 02/16/20 12:00 Mechanical Ventilator Mechanical Ventilator 02/16/20 12:00 98.2 59 15 148/84 (105) 96 02/16/20 12:00 40 02/16/20 09:09 142/87 02/16/20 09:08 57 142/87 02/16/20 09:08 57 142/87 02/16/20 08:00 98.2 57 15 142/87 (105) 100 02/16/20 08:00 Mechanical Ventilator Mechanical Ventilator 02/16/20 08:00 40 02/16/20 07:46 58 02/16/20 07:12 56 16 40 02/16/20 05:37 139/63 02/16/20 04:00 99.1 60 20 139/63 (88) 98 02/16/20 04:00 Mechanical Ventilator Mechanical Ventilator 02/16/20 04:00 63 02/16/20 04:00 40 02/16/20 01:15 145/67 02/16/20 00:53 57 15 40 02/16/20 00:00 59 02/16/20 00:00 98.6 64 24 145/67 (93) 99 02/16/20 00:00 40 02/15/20 23:58 Mechanical Ventilator Mechanical Ventilator 02/15/20 23:30 98.6 02/15/20 22:40 75 113/71 02/15/20 20:02 40 02/15/20 20:00 98.7 73 19 113/71 (85) 97 02/15/20 20:00 75 02/15/20 19:58 Mechanical Ventilator Mechanical Ventilator 02/15/20 18:30 60 17 40 02/15/20 17:56 149/71 02/15/20 17:56 149/71 02/15/20 17:56 66 149/71 02/15/20 16:00 40 02/15/20 16:00 Mechanical Ventilator Mechanical Ventilator 02/15/20 16:00 99.0 68 22 129/99 (109) 97 02/15/20 15:35 62 02/15/20 15:35 99.0 68 22 129/99 (109) 97 02/15/20 14:30 63 15 40 02/15/20 12:45 139/60 02/15/20 12:45 139/60 02/15/20 12:00 99.3 64 20 145/72 (96) 99 02/15/20 12:00 40 02/15/20 12:00 Mechanical Ventilator Mechanical Ventilator 02/15/20 11:42 63 02/15/20 10:44 62 14 40 02/15/20 08:24 75 126/62 02/15/20 08:23 75 126/62 02/15/20 08:23 126/62 02/15/20 08:00 Mechanical Ventilator Mechanical Ventilator 02/15/20 08:00 40 02/15/20 08:00 98.2 71 14 126/62 (83) 99 02/15/20 07:50 72 02/15/20 07:06 128/62 02/15/20 07:00 66 15 40 Intake and Output 02/16/20 02/17/20 19:00 07:00 Intake Total 670 ml 485 ml Output Total 350 ml 500 ml Balance 320 ml -15 ml Free Water 250 ml 100 ml Tube Feeding 420 ml 385 ml Output Urine Total 350 ml 500 ml # Bowel Movements 1 Labs Test 02/14/20 12:48 02/14/20 16:51 02/15/20 00:39 02/15/20 04:15 POC Whole Blood Glucose 111 MG/DL (74-106) 100 MG/DL (74-106) 97 MG/DL (74-106) White Blood Count 9.5 K/UL (4.8-10.8) Red Blood Count 3.02 M/UL (4.20-5.40) Hemoglobin 8.3 G/DL (12.0-16.0) Hematocrit 26.6 % (37.0-47.0) Mean Corpuscular Volume 88 FL (80-99) Mean Corpuscular Hemoglobin 27.6 PG (27.0-31.0) Mean Corpuscular Hemoglobin Concent 31.3 G/DL (32.0-36.0) Red Cell Distribution Width 14.7 % (11.6-14.8) Platelet Count 292 K/UL (150-450) Mean Platelet Volume 5.4 FL (6.5-10.1) Neutrophils (%) (Auto) 71.3 % (45.0-75.0) Lymphocytes (%) (Auto) 19.2 % (20.0-45.0) Monocytes (%) (Auto) 5.6 % (1.0-10.0) Eosinophils (%) (Auto) 2.8 % (0.0-3.0) Basophils (%) (Auto) 1.1 % (0.0-2.0) Sodium Level 134 MMOL/L (136-145) Potassium Level 3.3 MMOL/L (3.5-5.1) Chloride Level 98 MMOL/L (98-107) Carbon Dioxide Level 28 MMOL/L (21-32) Blood Urea Nitrogen 81 mg/dL (7-18) Creatinine 3.9 MG/DL (0.55-1.30) Estimat Glomerular Filtration Rate 12.4 mL/min (>60) Glucose Level 92 MG/DL (74-106) Calcium Level 9.5 MG/DL (8.5-10.1) Phosphorus Level 3.2 MG/DL (2.5-4.9) Magnesium Level 3.4 MG/DL (1.8-2.4) Total Bilirubin 0.3 MG/DL (0.2-1.0) Aspartate Amino Transf (AST/SGOT) 18 U/L (15-37) Alanine Aminotransferase (ALT/SGPT) < 6 U/L (12-78) Alkaline Phosphatase 151 U/L (46-116) C-Reactive Protein, Quantitative 15.2 mg/dL (0.00-0.90) Total Protein 6.8 G/DL (6.4-8.2) Albumin 1.8 G/DL (3.4-5.0) Globulin 5.0 g/dL Albumin/Globulin Ratio 0.4 (1.0-2.7) Test 02/15/20 06:02 02/15/20 12:27 02/15/20 17:59 02/16/20 04:49 POC Whole Blood Glucose 97 MG/DL (74-106) 84 MG/DL (74-106) White Blood Count 8.1 K/UL (4.8-10.8) Red Blood Count 3.02 M/UL (4.20-5.40) Hemoglobin 8.4 G/DL (12.0-16.0) Hematocrit 25.8 % (37.0-47.0) Mean Corpuscular Volume 85 FL (80-99) Mean Corpuscular Hemoglobin 27.7 PG (27.0-31.0) Mean Corpuscular Hemoglobin Concent 32.4 G/DL (32.0-36.0) Red Cell Distribution Width 15.3 % (11.6-14.8) Platelet Count 267 K/UL (150-450) Mean Platelet Volume 5.3 FL (6.5-10.1) Neutrophils (%) (Auto) 69.9 % (45.0-75.0) Lymphocytes (%) (Auto) 20.8 % (20.0-45.0) Monocytes (%) (Auto) 5.4 % (1.0-10.0) Eosinophils (%) (Auto) 2.7 % (0.0-3.0) Basophils (%) (Auto) 1.1 % (0.0-2.0) Sodium Level 136 MMOL/L (136-145) Potassium Level 3.4 MMOL/L (3.5-5.1) Chloride Level 100 MMOL/L (98-107) Carbon Dioxide Level 28 MMOL/L (21-32) Anion Gap 8 mmol/L (5-15) Blood Urea Nitrogen 83 mg/dL (7-18) Creatinine 3.9 MG/DL (0.55-1.30) Estimat Glomerular Filtration Rate 12.4 mL/min (>60) Glucose Level 79 MG/DL (74-106) Uric Acid 5.7 MG/DL (2.6-7.2) Calcium Level 9.7 MG/DL (8.5-10.1) Phosphorus Level 3.6 MG/DL (2.5-4.9) Magnesium Level 3.4 MG/DL (1.8-2.4) Total Bilirubin 0.4 MG/DL (0.2-1.0) Aspartate Amino Transf (AST/SGOT) 18 U/L (15-37) Alanine Aminotransferase (ALT/SGPT) 6 U/L (12-78) Alkaline Phosphatase 149 U/L (46-116) Total Protein 6.9 G/DL (6.4-8.2) Albumin 1.9 G/DL (3.4-5.0) Globulin 5.0 g/dL Albumin/Globulin Ratio 0.4 (1.0-2.7) Triglycerides Level 104 MG/DL (30-150) Cholesterol Level 86 MG/DL (< 200) LDL Cholesterol 43 mg/dL (<100) HDL Cholesterol 30 MG/DL (40-60) Cholesterol/HDL Ratio 2.9 (3.3-4.4) Thyroid Stimulating Hormone (TSH) 2.800 uiU/mL (0.358-3.740) Height (Feet): 5 Height (Inches): 6.00 Weight (Pounds): 150 Objective Physical Exam: Vitals: reviewed General: NAD HEENT: nc, at Neck: supple ++trach/vent Chest: clear breath sounds bilaterally Cardiovascular: RRR, no s3, s4 Abdomen: soft, nontender, nd +gtube Extremities: no cce, normal range of motion Neuro: alert Evan Muhammad MD Feb 17, 2020 06:55
--- NOTE | 2020-02-17 07:05 | NUR ---
NURSE NOTES: Received patient report from ERASMO Sen. Pt is AO x3 restless. No pain or discomfort noted at this time. Patient with L hand 22G patent and intact. Patient with trach to vent Shiley 6 AC 14 VT 500 FiO2 40% PEEP 5, breathing is even and unlabored with no signs of respiratory distress. Gt in place and intact. Soft wrist restraint in place, will monitor and assess [id number]. Bed in lowest position, locked with side rails x2 up. Call light within reach.
--- NOTE | 2020-02-17 07:23 | NUR ---
HAND-OFF: Report given to Jigna Orellana RN
[2020-02-17 08:00] VITALS: BP 145/73
[2020-02-17] MEDS: Amantadine 100mg cap GT SCH ×2 (08:52→17:42)
[2020-02-17] MEDS: Aspirin Baby 81mg GT SCH (08:52)
[2020-02-17] MEDS: Lactulose 20gm/30ml UDC GT SCH ×3 (08:52→17:42)
[2020-02-17] MEDS: Dakin's 0.125% Soln (Quarter Strength) 16oz TOPIC SCH (08:53)
--- NOTE | 2020-02-17 11:18 | Pulmonology Progress Note ---
Subjective ROS Limited/Unobtainable: Yes Interval Events: none major reported per nursing Constitutional: Reports: no symptoms HEENT: Repors: no symptoms Respiratory: Reports: no symptoms Cardiovascular: Reports: no symptoms Gastrointestinal/Abdominal: Reports: no symptoms Allergies: Coded Allergies: No Known Allergies (Unverified , 10/10/17) All Systems: reviewed and negative except above Objective Last 24 Hour Vital Signs Date Time Temp Pulse Resp B/P (MAP) Pulse Ox O2 Delivery O2 Flow Rate FiO2 02/17/20 08:53 145/73 02/17/20 08:52 60 145/73 02/17/20 08:52 60 145/73 02/17/20 08:00 98.7 60 14 145/73 (97) 99 02/17/20 08:00 53 02/17/20 08:00 40 02/17/20 08:00 Mechanical Ventilator Mechanical Ventilator 02/17/20 07:25 53 14 40 02/17/20 05:41 142/65 02/17/20 04:00 97.7 53 14 142/65 (90) 98 02/17/20 03:55 51 02/17/20 03:42 40 02/17/20 03:41 Mechanical Ventilator Mechanical Ventilator 02/17/20 00:05 58 14 40 02/17/20 00:00 Mechanical Ventilator Mechanical Ventilator 02/17/20 00:00 98.2 53 19 146/87 (106) 99 02/17/20 00:00 55 02/17/20 00:00 40 02/16/20 23:57 157/68 02/16/20 21:31 59 157/68 02/16/20 20:00 98.2 59 15 157/68 (97) 100 02/16/20 20:00 40 02/16/20 20:00 59 02/16/20 20:00 Mechanical Ventilator Mechanical Ventilator 02/16/20 19:05 53 14 40 02/16/20 18:23 150/78 02/16/20 18:23 150/78 02/16/20 18:23 61 150/78 02/16/20 16:00 Mechanical Ventilator Mechanical Ventilator 02/16/20 16:00 98.0 61 17 150/78 (102) 99 02/16/20 16:00 40 02/16/20 15:24 62 02/16/20 12:50 57 14 40 02/16/20 12:31 148/84 02/16/20 12:30 148/84 02/16/20 12:01 66 02/16/20 12:00 Mechanical Ventilator Mechanical Ventilator 02/16/20 12:00 98.2 59 15 148/84 (105) 96 02/16/20 12:00 40 Intake and Output 02/16/20 02/17/20 19:00 07:00 Intake Total 670 ml 485 ml Output Total 350 ml 500 ml Balance 320 ml -15 ml Free Water 250 ml 100 ml Tube Feeding 420 ml 385 ml Output Urine Total 350 ml 500 ml # Bowel Movements 1 Objective saturating well on current vent setting General Appearance: no acute distress HEENT: normocephalic, other - trach Respiratory: chest wall non-tender, other - coarse lung sounds Cardiovascular: normal rate, regular rhythm, other - s/p pacemaker, October 2018 Abdomen: soft, non tender Genitourinary: other - [place] Extremities: other - trace edema Current Medications Medications (Trade) Dose Ordered Sig/Penny Route PRN Reason Start Time Stop Time Status Last Admin Dose Admin Acetaminophen (Tylenol) 500 mg Q6H PRN GT FEVER 01/21/20 20:45 02/20/20 20:44 02/12/20 00:42 Acetaminophen (Tylenol) 650 mg Q6H PRN GT Mild Pain (Pain Scale 1-3) 02/09/20 17:15 03/10/20 17:14 02/09/20 17:39 Acetaminophen/ Hydrocodone Bitart ([place] 5/325) 1 tab Q6H PRN GT moderate-severe pain (7-10) 02/14/20 15:30 02/21/20 15:29 02/16/20 21:33 Amantadine HCl (Symmetrel) 100 mg TWICE A DAY GT 01/31/20 18:00 03/01/20 17:59 02/17/20 08:52 Amlodipine Besylate (Norvasc) 5 mg BID GT 01/22/20 18:00 02/20/20 15:44 02/17/20 08:52 Aspirin (ASA) 81 mg DAILY GT 01/20/20 09:00 03/05/20 08:59 02/17/20 08:52 Atorvastatin Calcium (Lipitor) 10 mg BEDTIME GT 01/17/20 21:00 04/16/20 20:59 02/16/20 21:31 Chlorhexidine Gluconate (Ling-Hex 2%) 1 applic DAILY@2000 TOPIC 02/17/20 20:00 05/17/20 19:59 Dextrose (Dextrose 50%) 25 ml Q30M PRN IV Hypoglycemia 01/15/20 22:15 04/14/20 22:14 Dextrose (Dextrose 50%) 50 ml Q30M PRN IV Hypoglycemia 01/15/20 22:15 04/14/20 22:14 01/22/20 17:54 Docusate Sodium (Colace) 200 mg BIDPRN PRN GT Constipation 01/31/20 07:45 03/01/20 07:44 02/15/20 22:40 Epoetin Gelacio (Epoetin Gelacio(ESRD on dialysis)) 2,000 unit SUBQ 02/14/20 21:00 05/14/20 20:59 02/14/20 21:57 Epoetin Gelacio (Epoetin Gelacio(ESRD on dialysis)) 8,000 unit SUBQ 02/14/20 21:00 05/14/20 20:59 02/14/20 21:57 Hydralazine HCl (Apresoline) 25 mg Q6HR GT 01/26/20 18:15 04/25/20 18:14 02/17/20 05:41 Isosorbide Dinitrate (Isordil) 20 mg TID GT 01/25/20 09:00 02/19/20 08:59 02/17/20 08:53 Lactulose (Cephulac) 20 gm THREE TIMES A DAY GT 02/04/20 13:00 03/05/20 12:59 02/17/20 08:52 Lansoprazole (Prevacid) 30 mg BID GT 01/19/20 18:00 02/18/20 17:59 02/17/20 08:52 Metoclopramide HCl (Reglan) 5 mg EVERY 6 HOURS GT 02/15/20 18:00 03/16/20 17:59 02/17/20 05:41 Metoprolol Tartrate (Lopressor) 25 mg Q12HR ORAL 01/27/20 21:00 04/22/20 20:59 02/17/20 08:52 Polyethylene Glycol (Miralax) 17 gm BEDTIME GT 02/04/20 21:00 03/05/20 20:59 02/15/20 22:39 Sodium Hypochlorite (Dakin's Quarter Strength) 1 applic DAILY TOPIC 01/30/20 09:00 02/29/20 08:59 02/17/20 08:53 Zinc Oxide (Zinc Oxide) 1 applic TIDPRN PRN TOPIC diogenes GT 01/16/20 13:15 04/15/20 13:14 01/16/20 14:55 Assessment/Plan Assessment/Plan 1. Large left effusion. - S/p thoracentesis; CXR better - pleural fluid pathology report: negative for malignant cell 2. Chronic respiratory failure. - Continue trach care - Cont AC mode - Currently saturating at 99% 3. Sepsis; improving 4. Anemia - s/p transfusion - s/p Epogen Hyponatremia, hypokalemia - Dr. Houston following s/p HD on broad-spectrum antibiotics. Pulmonary hygiene. DVT and GI prophylaxes. Dc planning in place FiO2 increased previously to 60%; now decreased to 40%; will wean further as tolerated The care for this patient was discussed with my supervising physician Time spent for this case was approximately 31 minutes Cruz Wilson Feb 17, 2020 11:18
--- NOTE | 2020-02-17 11:24 | General Progress Note ---
Subjective ROS Limited/Unobtainable: No Allergies: Coded Allergies: No Known Allergies (Unverified , 10/10/17) Objective Last 24 Hour Vital Signs Date Time Temp Pulse Resp B/P (MAP) Pulse Ox O2 Delivery O2 Flow Rate FiO2 02/17/20 08:53 145/73 02/17/20 08:52 60 145/73 02/17/20 08:52 60 145/73 02/17/20 08:00 98.7 60 14 145/73 (97) 99 02/17/20 08:00 53 02/17/20 08:00 40 02/17/20 08:00 Mechanical Ventilator Mechanical Ventilator 02/17/20 07:25 53 14 40 02/17/20 05:41 142/65 02/17/20 04:00 97.7 53 14 142/65 (90) 98 02/17/20 03:55 51 02/17/20 03:42 40 02/17/20 03:41 Mechanical Ventilator Mechanical Ventilator 02/17/20 00:05 58 14 40 02/17/20 00:00 Mechanical Ventilator Mechanical Ventilator 02/17/20 00:00 98.2 53 19 146/87 (106) 99 02/17/20 00:00 55 02/17/20 00:00 40 02/16/20 23:57 157/68 02/16/20 21:31 59 157/68 02/16/20 20:00 98.2 59 15 157/68 (97) 100 02/16/20 20:00 40 02/16/20 20:00 59 02/16/20 20:00 Mechanical Ventilator Mechanical Ventilator 02/16/20 19:05 53 14 40 02/16/20 18:23 150/78 02/16/20 18:23 150/78 02/16/20 18:23 61 150/78 02/16/20 16:00 Mechanical Ventilator Mechanical Ventilator 02/16/20 16:00 98.0 61 17 150/78 (102) 99 02/16/20 16:00 40 02/16/20 15:24 62 02/16/20 12:50 57 14 40 02/16/20 12:31 148/84 02/16/20 12:30 148/84 02/16/20 12:01 66 02/16/20 12:00 Mechanical Ventilator Mechanical Ventilator 02/16/20 12:00 98.2 59 15 148/84 (105) 96 02/16/20 12:00 40 Intake and Output 02/16/20 02/17/20 19:00 07:00 Intake Total 670 ml 485 ml Output Total 350 ml 500 ml Balance 320 ml -15 ml Free Water 250 ml 100 ml Tube Feeding 420 ml 385 ml Output Urine Total 350 ml 500 ml # Bowel Movements 1 Height (Feet): 5 Height (Inches): 6.00 Weight (Pounds): 150 General Appearance: no apparent distress EENT: normal ENT inspection Neck: supple Cardiovascular: normal rate Respiratory/Chest: decreased breath sounds Abdomen: normal bowel sounds, non tender, soft Extremities: non-tender Assessment/Plan Problem List: (1) Hx of CABG ICD Codes: Z95.1 - Presence of aortocoronary bypass graft SNOMED: 005378759, 432742976 (2) History of tracheostomy ICD Codes: Z98.890 - Other specified postprocedural states SNOMED: 397745893, 516995922 (3) PEG (percutaneous endoscopic gastrostomy) status ICD Codes: Z93.1 - Gastrostomy status SNOMED: 169825000, 812772821 (4) S/P aortic dissection repair ICD Codes: Z98.890 - Other specified postprocedural states SNOMED: 973258528, 635246770 (5) Renal failure ICD Codes: N19 - Unspecified kidney failure SNOMED: 18153612, 916444193 (6) Anemia ICD Codes: D64.9 - Anemia, unspecified SNOMED: 217978595 Assessment/Plan: stable H&H repeat stool ob GTF some GT leak reglan topical Zinc oxide HD per nephrology persistent elevated lipase\ ct reviewed s/p one unit prbc cbc in am Inder Mccauley MD Feb 17, 2020 11:24
[2020-02-17 12:00] VITALS: BP 134/74
--- NOTE | 2020-02-17 13:15 | Surgery Progress Note ---
Surgery Progress Note Subjective Procedure Performed Left femoral temporary hemodialysis catheter insertion Additional Comments d/c planning labs note exam unchanged ill appearing trach/peg Objective Last 24 Hour Vital Signs Date Time Temp Pulse Resp B/P (MAP) Pulse Ox O2 Delivery O2 Flow Rate FiO2 02/17/20 12:04 134/74 02/17/20 12:04 134/74 02/17/20 12:00 98.2 64 15 134/74 (94) 99 02/17/20 12:00 Mechanical Ventilator Mechanical Ventilator 02/17/20 12:00 51 02/17/20 12:00 40 02/17/20 11:05 50 14 40 02/17/20 08:53 145/73 02/17/20 08:52 60 145/73 02/17/20 08:52 60 145/73 02/17/20 08:00 98.7 60 14 145/73 (97) 99 02/17/20 08:00 53 02/17/20 08:00 40 02/17/20 08:00 Mechanical Ventilator Mechanical Ventilator 02/17/20 07:25 53 14 40 02/17/20 05:41 142/65 02/17/20 04:00 97.7 53 14 142/65 (90) 98 02/17/20 03:55 51 02/17/20 03:42 40 02/17/20 03:41 Mechanical Ventilator Mechanical Ventilator 02/17/20 00:05 58 14 40 02/17/20 00:00 Mechanical Ventilator Mechanical Ventilator 02/17/20 00:00 98.2 53 19 146/87 (106) 99 02/17/20 00:00 55 02/17/20 00:00 40 02/16/20 23:57 157/68 02/16/20 21:31 59 157/68 02/16/20 20:00 98.2 59 15 157/68 (97) 100 02/16/20 20:00 40 02/16/20 20:00 59 02/16/20 20:00 Mechanical Ventilator Mechanical Ventilator 02/16/20 19:05 53 14 40 02/16/20 18:23 150/78 02/16/20 18:23 150/78 02/16/20 18:23 61 150/78 02/16/20 16:00 Mechanical Ventilator Mechanical Ventilator 02/16/20 16:00 98.0 61 17 150/78 (102) 99 02/16/20 16:00 40 02/16/20 15:24 62 I&O Intake and Output 02/16/20 02/17/20 19:00 07:00 Intake Total 670 ml 485 ml Output Total 350 ml 500 ml Balance 320 ml -15 ml Free Water 250 ml 100 ml Tube Feeding 420 ml 385 ml Output Urine Total 350 ml 500 ml # Bowel Movements 1 Dressing: saturated Cardiovascular: RSR Respiratory: decreased breath sounds Abdomen: soft, non-tender, present bowel sounds Extremities: no tenderness, no cyanosis Plan Problems: (1) Dehydration (2) Acidosis (3) Depression (4) Pleural effusion (5) Respiratory failure (6) Schizophrenia (7) Hypoxia (8) UTI (urinary tract infection) (9) Pneumonia (10) NSTEMI (non-ST elevated myocardial infarction) (11) Tracheostomy in place (12) Feeding by G-tube (13) JAVIER (acute kidney injury) (14) Acute encephalopathy (15) Sacral decubitus ulcer, stage IV (16) Chronic respiratory failure (17) Ascites (18) Bacteremia (19) Hypernatremia (20) Proteinuria (21) Electrolyte imbalance (22) ACS (acute coronary syndrome) (23) Aortic dissection, thoracic (24) Respiratory failure, acute and chronic (25) JAVIER (acute kidney injury) (26) Abrasion of lip, initial encounter (27) COPD with exacerbation (28) Elevated alkaline phosphatase level (29) Renal failure (ARF), acute on chronic (30) HCAP (healthcare-associated pneumonia) (31) GT CLOGGED (32) Elevated lipase (33) Pancreatitis (34) Elevated troponin (35) Hypokalemia (36) Hyponatremia (37) Anemia (38) Renal failure (39) ARF (acute renal failure) (40) Pacemaker (41) Sepsis Assessment & Plan: leukocytosis anemia on HD renal insufficiency wounds addressed pancreatitis cont diet as tolerating trend labs lf'ts okay bleeding from permacath site suture used and hemostasis obtained plan removal of fem line if stable tomorrow pt presented on admission with Tracheostomy ,GT and Multiple Pressure Injuries. Skin assessment of skin under tracheal collar without evidence of skin br eakdown. Peristomal GT site excoriated.Moderate amt of dark red sanguineous exudate. Full Thickness Sacral Pressure Injury with undermined borders (L)9 cm x (W)12cm x (D)1.8cm,Undermining clockwise8-9 by 2.2cm @1o'clock,undermining clockwise 1-4 by 1.9 @ 9'oclock Scattered necrotic tissue within wound bed. Borders are loose and necrotic with marginal erythema to outer perimeter of wound. NO elevation in skin temp noted periwound. Wound is malodorous. Small amt Brown exudate noted. Resolving Pressure Injury L Ischium(L)1.5cm x (W)1.5cm. Base of wound is 80% pink epithelial with an area that is moist and pink. NO odor or exudate noted. Bilat foot-drop noted. L Heel is boggy with non-blanchable erythema(L)4cm x (W)4cm. R heel is boggy with non-Blanchable erythema(L)5cm x (W)6cm. Tx.Plan: Cleanse sacral wound with Dakin's 0.125% annie. Loosely pack with Dakin's moistened Kerlix(Attention to undermined borders). Apply Moisture Barrier Paste periwound. Cover with Optifoam drsg. Change Daily and PRN. Apply Cavilon Skin Barrier to R and L Hels. Cover each heel with Optifoam drsg. Change every 7 days and prn. Reposition at least every 2hours or as tolerated. Off-load heels with Pillow. APM/JENNIFER MAttress overlay DAILY ESTIMATED NEEDS: Needs based on Critical care, wound, renal dysfunction 56 kg abw 28-33 kcals/kg 6552-9242 total kcals W/ HD (1.5-2.0) g protein/kg 84-112 g total protein Fluid per MD NUTRITION DIAGNOSIS: * Swallowing difficulty R/T dysphagia, respiratory status as evidenced by vent dep via trach, GT Dep. * Increase kcal and pro needs r/t wound healing, renal dysfunction as evidenced by admitted w/ stage 4 sacral wound, admitted w/ JAVIER, now on HD. CURRENT TF: Nepro @ 40ml/hr x 24 hrs-> now @35ml/hr ENTERAL NUTRITION RECOMMENDATIONS: Nepro @ 40ml/hr x 24 hrs + Prosource 1pkt QD to provide 960ml, 1728kcal, 78g+11g prot, 698ml free water * As medically appropriate, increase TF goal rate to 40ml/hr x 24 hrs * Add Prosource 1pkt QD to better meet increased protein needs (additional 11g prot) * Water flush per MD/ HOB over 30 degrees ADDITIONAL RECOMMENDATIONS: * Per SNF in NOV 2019: HT=63"/ Rec daily calibrated bedscale wt * Monitor for continuity of HD, last HD 02/07 * Rec phos binders- consistently elevated phos level -> now wnl * Wound care: add Nephrovite x 1, ZnSO4 220mg QD x 10 days Reynaldo BID via PEG (mix w/ 2-4 oz water); vit C per nephro * Monitor TF tolerance: TF lowered for GT leak, increase as able * Add bowel regimen: now added, last BM 02/09 (42) Hyponatremia Lane Saavedra Feb 17, 2020 13:15
--- NOTE | 2020-02-17 13:28 | NUR ---
RD ASSESSMENT & RECOMMENDATIONS SEE CARE ACTIVITY FOR COMPLETE ASSESSMENT DAILY ESTIMATED NEEDS: Needs based on Critical care, wound, renal dysfunction 56 kg abw 28-33 kcals/kg 9733-5383 total kcals W/ HD (1.5-2.0) g protein/kg 84-112 g total protein Fluid per MD NUTRITION DIAGNOSIS: * Swallowing difficulty R/T dysphagia, respiratory status as evidenced by vent dep via trach, GT Dep. * Increase kcal and pro needs r/t wound healing, renal dysfunction as evidenced by admitted w/ stage 4 sacral wound, admitted w/ JAVIER, now on HD. CURRENT TF: Nepro @ 40ml/hr x 24 hrs-> now @35ml/hr ENTERAL NUTRITION RECOMMENDATIONS: Nepro @ 40ml/hr x 24 hrs + Prosource 1pkt QD to provide 960ml, 1728kcal, 78g+11g prot, 698ml free water * As medically appropriate, increase TF goal rate to 40ml/hr x 24 hrs * Add Prosource 1pkt QD to better meet increased protein needs (additional 11g prot) * Water flush per MD/ HOB over 30 degrees ADDITIONAL RECOMMENDATIONS: * Per SNF in NOV 2019: HT=63"/ Rec daily calibrated bedscale wt * Monitor for continuity of HD, last HD 02/07 * Rec phos binders- consistently elevated phos level -> now wnl * Wound care: add Nephrovite x 1, ZnSO4 220mg QD x 10 days Reynaldo BID via PEG (mix w/ 2-4 oz water); vit C per nephro * Monitor TF tolerance: TF lowered for GT leak, increase as able * Add bowel regimen: on lactulose
--- NOTE | 2020-02-17 13:39 | NUR ---
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
--- NOTE | 2020-02-17 13:40 | Nephrology Progress Note ---
Assessment/Plan Problem List: (1) ARF (acute renal failure) (2) Pacemaker (3) Sepsis (4) Hyponatremia Assessment (1) JAVIER (acute kidney injury) (2) Renal failure (ARF), acute on chronic (3) Feeding by G-tube (4) Tracheostomy in place (5) Electrolyte imbalance, hyponatremia (6) Anemia, severe (7) Respiratory failure, acute and chronic (8) Elevated lipase, pancreatitis (9) Elevated troponin I (10) Sepsis Plan February 16: No labs drawn today. Will check lab tomorrow. Patient has not required dialysis for sometimes. February 15: Labs reviewed. Abnormal electrolytes addressed. Continue to be stable from renal standpoint of view off dialysis. February 14: Labs reviewed. Abnormal electrolytes addressed. Patient has not been dialyzed since February 07. Continue to monitor renal parameters. February 13: Hemoglobin up to 9.2. Low potassium and low sodium addressed. Continue to monitor renal parameters. Hemodialysis as needed. February 12: Labs reviewed. Hemoglobin 6.8. Creatinine 3.7 and stable. Transfusion will defer to Dr. Radford. Continue to monitor CBC and CHEM panel. February 11: Labs reviewed. Serum creatinine 3.6. Low potassium addressed. Dialysis as needed. Will monitor renal parameters. February 10: Labs reviewed. Potassium replaced. Serum sodium 132. Check labs tomorrow. Dialysis as needed. February 09: No labs drawn today. Last dialysis February 07. Will check lab tomorrow. Hemodialysis as needed. February 08: Labs reviewed. Dialyzed yesterday. Stable from renal standpoint of view. Continue to monitor electrolytes and order dialysis as needed. February 07: Labs reviewed. Due for dialysis today. Continue per consultants. February 06: Labs reviewed. Last dialysis February 03. Will postpone today's dialysis to tomorrow. Continue per current treatment plan. February 05: Labs reviewed. Last dialysis February 03. Will order dialysis tomorrow. Waiting for tunneled catheter placement. February 04: Labs reviewed. Dialyzed yesterday. With a plan for insertion of a tunneled dialysis catheter and discontinue left groin dialysis catheter afterwards. Check labs in a.m. Discussed with Dr. Dong. February 03: Labs reviewed. Due for dialysis today. Continue per consultants. February 02: Labs reviewed. Will order dialysis tomorrow. Continue per consultants. February 01: Labs reviewed. Creatinine gradually rising. Will dialyze as needed. Continue to monitor renal parameters. January 31: Last dialysis January 29. Labs reviewed. No need for dialysis today. Continue per current management. Hemodialysis as needed. Will check renal parameters and chemistries tomorrow. January 30: Patient was dialyzed yesterday. No labs drawn today. Continue to monitor renal parameters and dialyze as needed. Continue per consultants and PMD. January 29: Patient due for dialysis today. Today's can panel reviewed. Continue to monitor renal parameters and dialysis as needed. January 28: Patient last dialyzed January 26. No labs drawn today. Will order dialysis tomorrow. Check chemistry panel tomorrow. Continue per consultants. January 27: Patient was dialyzed yesterday . Labs were reviewed. Electrolytes within normal limit. Blood pressure stable. January 26: When visited the patient earlier today the patient was on dialysis. Tolerating well. Labs reviewed. Blood pressure stable. January 25: Dialysis for tomorrow. Labs reviewed. Hemoglobin remains low. Will adjust blood pressure medication. Hydralazine added to the regimen January 24: Last dialyzed January 22. Labs reviewed. Status quo. Will alley lyze as needed. Low hemoglobin noted. Transfusion per PMD decision. Epogen started. \January 23: Dialyzed yesterday. Today's labs reviewed. Continue to monitor renal parameters and arrange for dialysis as needed. Continue per PMD. January 22: Seen earlier during dialysis. Labs reviewed. Medication list reviewed. Continue current management. January 21: Labs reviewed. Medication list reviewed. Next hemodialysis tomorrow. Blood pressure medication adjusted. January 20: Dialyzed yesterday. Labs reviewed. Continue per current management. Dialysis as needed. Add Norvasc to blood pressure regimen January 19: Due for dialysis today. Labs reviewed. Continue her current management. Continue to monitor renal parameters and electrolytes. January 18: Dialyzed yesterday. Labs reviewed. Renal parameters electrolytes much improved. Dialysis again tomorrow. Continue rest. January 17: Dialyzed this morning. Labs reviewed. Renal parameters and electrolyte abnormalities improved. Discussed with RN. Continue per consultants. January 16: Dialyzed yesterday. Labs improved. Next dialysis tomorrow. Continue per consultants. January 15: Patient to have dialysis catheter. Emergency dialysis for correction of uremia and electrolyte imbalances Antibiotics Transfusion Continue to monitor renal parameters Per orders Discussed with RN Subjective ROS Limited/Unobtainable: Yes Objective Objective Last 24 Hour Vital Signs Date Time Temp Pulse Resp B/P (MAP) Pulse Ox O2 Delivery O2 Flow Rate FiO2 02/17/20 12:04 134/74 02/17/20 12:04 134/74 02/17/20 12:00 98.2 64 15 134/74 (94) 99 02/17/20 12:00 Mechanical Ventilator Mechanical Ventilator 02/17/20 12:00 51 02/17/20 12:00 40 02/17/20 11:05 50 14 40 02/17/20 08:53 145/73 02/17/20 08:52 60 145/73 02/17/20 08:52 60 145/73 02/17/20 08:00 98.7 60 14 145/73 (97) 99 02/17/20 08:00 53 02/17/20 08:00 40 02/17/20 08:00 Mechanical Ventilator Mechanical Ventilator 02/17/20 07:25 53 14 40 02/17/20 05:41 142/65 02/17/20 04:00 97.7 53 14 142/65 (90) 98 02/17/20 03:55 51 02/17/20 03:42 40 02/17/20 03:41 Mechanical Ventilator Mechanical Ventilator 02/17/20 00:05 58 14 40 02/17/20 00:00 Mechanical Ventilator Mechanical Ventilator 02/17/20 00:00 98.2 53 19 146/87 (106) 99 02/17/20 00:00 55 02/17/20 00:00 40 02/16/20 23:57 157/68 02/16/20 21:31 59 157/68 02/16/20 20:00 98.2 59 15 157/68 (97) 100 02/16/20 20:00 40 02/16/20 20:00 59 02/16/20 20:00 Mechanical Ventilator Mechanical Ventilator 02/16/20 19:05 53 14 40 02/16/20 18:23 150/78 02/16/20 18:23 150/78 02/16/20 18:23 61 150/78 02/16/20 16:00 Mechanical Ventilator Mechanical Ventilator 02/16/20 16:00 98.0 61 17 150/78 (102) 99 02/16/20 16:00 40 02/16/20 15:24 62 Intake and Output 02/16/20 02/17/20 19:00 07:00 Intake Total 670 ml 485 ml Output Total 350 ml 500 ml Balance 320 ml -15 ml Free Water 250 ml 100 ml Tube Feeding 420 ml 385 ml Output Urine Total 350 ml 500 ml # Bowel Movements 1 Height (Feet): 5 Height (Inches): 6.00 Weight (Pounds): 150 General Appearance: no apparent distress EENT: other - Trach and vent Cardiovascular: bradycardia Respiratory/Chest: decreased breath sounds Abdomen: distended Objective No change Johnny Houston MD Feb 17, 2020 13:39
--- NOTE | 2020-02-17 15:13 | NUR ---
*-*DISCHARGE PLANNING*-* PATIENT HAS BEEN REFERRED BACK TO: [facility] P: [phone]
--- NOTE | 2020-02-17 15:52 | NUR ---
*-*DISCHARGE PLANNING*-* PATIENT HAS BEEN REFERRED BACK TO: [facility] P: [phone] S/W MARILU, NO BEDS AT THIS TIME, PLEASE CALL BACK IN TWO DAYS. Addendum: 02/18/20 at 1000 by MARY HUYNH CM *-*DISCHARGE PLANNING*-* [employer] REPAIRER NIKIA HARRIS GAVE HER A ROOM. ~~~~~~~PENDING DISCHARGE ORDER~~~~~~~~~
[2020-02-17 16:00] VITALS: BP 128/80
--- NOTE | 2020-02-17 19:00 | NUR ---
NURSE NOTES: Received report from ERASMO Ang. Pt is seen lying in bed in semi- crisostomo's position, pt is awake oriented x 3, pt is combative and pulling devices, pt on restraints bilateral wrist, no skin discoloration underneath noted, palpable pulses noted. Pt has no signs of pain. Oral secretions suctioned. Gtube patent and patent no residual noted, IV Right hand g22 and Left wrist g22 still patent and intact. Trach to vent with settings as ordered, fio2- 40% right now o2 sat- 98%. Bed in lowest position,call light within reach. pt has raymond intact and patent draining yellow urine. Continue to plan of care.
--- NOTE | 2020-02-17 19:05 | NUR ---
NURSE HAND-OFF REPORT: Important Events on Shift:NA Patient Status: Stable Diet: Gtube Pending Orders: NA Pending Results/Labs:NA Pending notification:NA Latest Vital Signs: Temperature 97.7 , Pulse 57 , B/P 128 /80 , Respiratory Rate 14 , O2 SAT 99 , Mechanical Ventilator, O2 Flow Rate . Vital Sign Comment: Stable EKG Rhythm: Sinus Bradycardia Rhythm change?: N Notified?: N -Dr. Екатерина HATFIELD Response: Order Received& Read Back Latest Chavarria Fall Score: 70 Fall Risk: High Risk Safety Measures: Call light Within Reach, Bed Alarm Zone 1, Side Rails Side Rails x2, Bed position Low and Locked. Fall Precautions: Yellow Socks Report given to ERASMO Forte.
--- NOTE | 2020-02-17 19:46 | NUR ---
NURSE NOTES: Spoke to leticia pharmacist regarding epoetin chau order to clarify dose. No changes noted.
[2020-02-17 20:00] VITALS: BP 148/92
[2020-02-17] MEDS ORDERED: Dyna-Hex 2% Top Sol 2oz TOPIC SCH (20:00)
[2020-02-17] MEDS: Miralax 17gm pkt GT SCH (20:22)
[2020-02-17] MEDS: Epoetin Alfa-EPBX(ESRD on dialysis)4000 units/ml vial SUBQ SCH (20:59)
[2020-02-17] MEDS: Epoetin Alfa-EPBX(ESRD on dialysis)2000 units/ml vial SUBQ SCH (20:59)
--- NOTE | 2020-02-17 22:08 | General Progress Note ---
Subjective Constitutional: Reports: no symptoms HEENT: Reports: no symptoms Cardiovascular: Reports: no symptoms Respiratory: Reports: no symptoms Gastrointestinal/Abdominal: Reports: no symptoms Neurologic/Psychiatric: Reports: anxiety Endocrine: Reports: no symptoms Hematologic/Lymphatic: Reports: no symptoms Allergies: Coded Allergies: No Known Allergies (Unverified , 10/10/17) Objective Last 24 Hour Vital Signs Date Time Temp Pulse Resp B/P (MAP) Pulse Ox O2 Delivery O2 Flow Rate FiO2 02/17/20 20:23 89 143/82 02/17/20 20:00 40 02/17/20 20:00 Mechanical Ventilator Mechanical Ventilator 02/17/20 20:00 60 02/17/20 20:00 97.7 60 21 148/92 (110) 100 02/17/20 19:00 57 14 40 02/17/20 17:43 128/80 02/17/20 17:43 128/80 02/17/20 17:43 49 128/80 02/17/20 16:00 97.7 68 14 128/80 (96) 99 02/17/20 16:00 40 02/17/20 16:00 Mechanical Ventilator Mechanical Ventilator 02/17/20 16:00 49 02/17/20 15:15 54 15 40 02/17/20 12:04 134/74 02/17/20 12:04 134/74 02/17/20 12:00 98.2 64 15 134/74 (94) 99 02/17/20 12:00 Mechanical Ventilator Mechanical Ventilator 02/17/20 12:00 51 02/17/20 12:00 40 02/17/20 11:05 50 14 40 02/17/20 08:53 145/73 02/17/20 08:52 60 145/73 02/17/20 08:52 60 145/73 02/17/20 08:00 98.7 60 14 145/73 (97) 99 02/17/20 08:00 53 02/17/20 08:00 40 02/17/20 08:00 Mechanical Ventilator Mechanical Ventilator 02/17/20 07:25 53 14 40 02/17/20 05:41 142/65 02/17/20 04:00 97.7 53 14 142/65 (90) 98 02/17/20 03:55 51 02/17/20 03:42 40 02/17/20 03:41 Mechanical Ventilator Mechanical Ventilator 02/17/20 00:05 58 14 40 02/17/20 00:00 Mechanical Ventilator Mechanical Ventilator 02/17/20 00:00 98.2 53 19 146/87 (106) 99 02/17/20 00:00 55 02/17/20 00:00 40 02/16/20 23:57 157/68 Intake and Output 02/16/20 02/17/20 19:00 07:00 Intake Total 670 ml 520 ml Output Total 350 ml 500 ml Balance 320 ml 20 ml Free Water 250 ml 100 ml Tube Feeding 420 ml 420 ml Output Urine Total 350 ml 500 ml # Bowel Movements 1 Height (Feet): 5 Height (Inches): 6.00 Weight (Pounds): 150 General Appearance: no apparent distress EENT: normal ENT inspection Neck: supple Cardiovascular: normal rate, regular rhythm, no gallop/murmur, no JVD Respiratory/Chest: no respiratory distress, no accessory muscle use, decreased breath sounds Abdomen: normal bowel sounds, non tender, soft, no organomegaly, no mass Extremities: non-tender Neurologic: alert, responsive Skin: warm/dry Assessment/Plan Status Narrative Patient is awake alert eye contact no verbal response and appears anxiousmedical record reviewed in detail and the issue of patient discharge was addressed by multiple specialist she is clear from infectious point of view she did not require dialysis for quite a while wrist stable without leukocytosis patient can be discharged in a.m. back to the extended care facility once cleared by the cna per diem Lucas Canales MD, MD Feb 17, 2020 22:08
[2020-02-18] VITALS: BP 161/61
--- NOTE | 2020-02-18 | NUR ---
NURSE NOTES: Noted BP 160's, pt has facial grimacing and uncomfortable. Pain noted. Routine meds given for hypertension. Will rechecked later.
[2020-02-18] MEDS: HydrALAZINE 25mg tab GT SCH ×4 (00:09→17:21)
[2020-02-18] MEDS: Metoclopramide 10mg/10ml Liq GT SCH ×4 (00:09→17:21)
[2020-02-18] MEDS: HYDROcodone/Acetamin 5/325 tab GT PRN ×3 (00:11→20:02)
--- NOTE | 2020-02-18 01:43 | Cardiology Progress Note ---
Subjective DATE OF SERVICE: Feb 17, 2020 Continues with HD schedule per renal Maintaining sinus rhythm. Occasional PVC's - non-sustained BP range stable Full vent support via trach s/p left thorocentesis 01/22/20 Objective Last 24 Hour Vital Signs Date Time Temp Pulse Resp B/P (MAP) Pulse Ox O2 Delivery O2 Flow Rate FiO2 02/18/20 00:09 160/61 02/18/20 00:00 Mechanical Ventilator Mechanical Ventilator 02/18/20 00:00 40 02/18/20 00:00 97.8 67 22 161/61 (94) 97 02/18/20 00:00 61 02/17/20 22:50 57 26 40 02/17/20 20:23 89 143/82 02/17/20 20:00 40 02/17/20 20:00 Mechanical Ventilator Mechanical Ventilator 02/17/20 20:00 60 02/17/20 20:00 97.7 60 21 148/92 (110) 100 02/17/20 19:00 57 14 40 02/17/20 17:43 128/80 02/17/20 17:43 128/80 02/17/20 17:43 49 128/80 02/17/20 16:00 97.7 68 14 128/80 (96) 99 02/17/20 16:00 40 02/17/20 16:00 Mechanical Ventilator Mechanical Ventilator 02/17/20 16:00 49 02/17/20 15:15 54 15 40 02/17/20 12:04 134/74 02/17/20 12:04 134/74 02/17/20 12:00 98.2 64 15 134/74 (94) 99 02/17/20 12:00 Mechanical Ventilator Mechanical Ventilator 02/17/20 12:00 51 02/17/20 12:00 40 02/17/20 11:05 50 14 40 02/17/20 08:53 145/73 02/17/20 08:52 60 145/73 02/17/20 08:52 60 145/73 02/17/20 08:00 98.7 60 14 145/73 (97) 99 02/17/20 08:00 53 02/17/20 08:00 40 02/17/20 08:00 Mechanical Ventilator Mechanical Ventilator 02/17/20 07:25 53 14 40 02/17/20 05:41 142/65 02/17/20 04:00 97.7 53 14 142/65 (90) 98 02/17/20 03:55 51 02/17/20 03:42 40 02/17/20 03:41 Mechanical Ventilator Mechanical Ventilator ROS: unchanged for 01/17/20 HEENT: Mechanically Ventilated, Thick Trach secretions RHYTHM: Afib LUNGS: bilateral rhonchi, trach site clean CARDIAC: normal S1 and S2, irregularly irregular, other - no rub ABDOMEN: normal bowel sounds, non tender, soft, G-Tube intact, other - left groin- no bleeding at old cath site EXTREMITIES: normal inspection, trace edema Assessment/Plan Assessment/Plan Chronic respiratory failure with trach Severe sepsis PAFib now in sinus rhythm Ischemic cardiomyopathy - hx CABG and s/p NSTEMI in Dec 2019. Conduction system disease of the heart Hx of permanent pacemaker explant Acute on chronic systolic and diastolic CHF Pleural effusion - s/p thorocentesis Anemia Hypertension/HHD with improved BP control. ESRD Hypokalemia Avoid beta flori therapy based on historic risk of bradycardia. Anti-failure and anti-anginal regimen with titration Vent support Abx per ID Continuous cardiac monitoring Anti-HTN regimen being titrated as needed. Transfuse PRBC as needed Replace potassium/Mg++ as needed. Stable for subacute facility from Cardiovascular standpoint Deni Willams MD Feb 18, 2020 01:43
--- NOTE | 2020-02-18 02:38 | NUR ---
NURSE NOTES: Cleaned pt sponge bath given. Noted 1x BM soft in color. Dressing change cleansed with dakin's solution. Oral care done. Continue current management.
[2020-02-18 03:39] LABS: ALANINE AMINOTRANSFERASE < 6 U/L (12-78); ALBUMIN 1.9 G/DL (3.4-5.0); ALBUMIN/GLOBULIN RATIO 0.4 (1.0-2.7); ALKALINE PHOSPHATASE 159 U/L (46-116); ANION GAP 8 mmol/L (5-15); ASPARTATE AMINO TRANSFERASE 19 U/L (15-37); BILIRUBIN,TOTAL 0.4 MG/DL (0.2-1.0); BLOOD UREA NITROGEN 98 mg/dL (7-18); CALCIUM 10.2 MG/DL (8.5-10.1); CARBON DIOXIDE 28 MMOL/L (21-32); CHLORIDE 100 MMOL/L (98-107); PHOSPHORUS 3.9 MG/DL (2.5-4.9); POTASSIUM 3.7 MMOL/L (3.5-5.1); SODIUM 136 MMOL/L (136-145)
[2020-02-18 04:00] VITALS: BP 148/83
--- NOTE | 2020-02-18 05:11 | NUR ---
NURSE NOTES: Pt is sleeping no signs of distress, o2 sat- 100%, Gt tube flushed with no residual. Continue to plan of care.
--- NOTE | 2020-02-18 06:52 | Hematology/Onc Progress Note ---
Assessment/Plan Assessment/Plan IM note Covering for Dr. Dong Assessment and Recs # Leukocytosis, now with pna v other process --> Cxr: : Large left pleural effusion, Bilateral interstitial and airspace infiltrates versus edema --> wbc 16-->26->30-->10->8 --> ABX zosyn-->angelo/vanc-->angelo/tobra->off --> ID recs are noted --> smear has been reviewed # Anemia of chronic disease due to underlying chronic medical issues, multifactorial --> Anemia workup has been reviewed, cw acd --> No evidence of hemolysis is noted, peripheral smear has been reviewed. --> Hgb goal >7. Transfuse prn. --> Epogen required, to continue --> Medications have been reviewed --> low threshold for gi evaluation in case has occult + --> hgb 7.1-->7.8-->>>5.9-->7.3-->7-->7.2-->7.9-->8.6-->8.2-->8.5-->7->8.5->6.8-->9.2 --> 1 unit prbc1/, 2 units 01/15. 02/06, 02/12 --> gi eval as needed # Coagulopathy with inr 1.5 --> consider vit k/ffp as needed preprocedure --> labs noted # JAVIER initially >2 --> on ivfs --> per renal # Elevated d-dimer --> venous duplex ordered-->reviewed, is neg --> in prior neg # Dysphagia s/p peg --> as per gi # Thoracic aortic dissection --> s/p repair early 2017 # Chronic Resp failure -> s/p trach/vent # Psychiatric history on ativan/haldol # [place] resident # Dvt ppx --> scds The timing of this note does not necessarily reflect the time of the patient was seen. Greatly appreciate consultation. Subjective Gastrointestinal/Abdominal: Denies: no symptoms, abdomen distended, abdominal pain, black stools, tarry stools, blood in stool, constipated, diarrhea, difficulty swallowing, nausea, poor appetite, poor fluid intake, rectal bleeding, vomiting, other Genitourinary: Denies: no symptoms, burning, discharge, frequency, flank pain, hematuria, incontinence, pain, urgency, other Neurologic/Psychiatric: Denies: no symptoms, anxiety, depressed, emotional problems, headache, numbness, paresthesia, pre-existing deficit, seizure, tingling, tremors, weakness, other Endocrine: Denies: no symptoms, excessive sweating, flushing, intolerance to cold, intolerance to heat, increased hunger, increased thirst, increased urine, unexplained weight gain, unexplained weight loss, other Allergies: Coded Allergies: No Known Allergies (Unverified , 10/10/17) All Systems: reviewed and negative except above Subjective 01/16 left femoral arden in place, on vent, icu, hgb better 01/18 labs are noted, wbc 30, hgb 7, may require prbc today 01/27 is off amio, on epoogen, hgb reviewed, 7.2, transfuse if unstable 01/28 pain meds given, some foaming around mouth, no bleeding 01/29 hd was done yesterday, no bleedig, cbc pending, asa given 01/30 labs are noted, no bleeding, labs reviewed, pending meds 02/01 labs are noted, no bleeding, meds reviewed, no f/c, trach/vent 02/02 labs noted, no night sweats, t/v, labs ordered for am 02/03 labs reviewed, meds noted, no bleeding, hgb 7.9 02/04 meds noted, no bleeding, labs reviewed, hgb 8 02/05 labs are pending, some secretions are noted, no bleeding 02/[address] still with bleed roman Rn, will place seal/further pressure 02/08 labs reviewed, grimacing, meds noted, vitals noted, seen by cards 02/09 on vent, meds reviewed, hd as per renal, labs pending 02/10 vent, comfortable, no bleeding or chills, hgb stable 02/11 nv, on vent, hgb 8.5, no new events, stable, roman Woodall 02/12 nv, trach to vent, hgb 6.8 to get 1 unit prbc 02/13 nv, labs reviewed, hgb has improved, remains on a vent 12:remains on abx treatment no bleeding reported 02/15: tolerating vent settings, no distress 02/16 unchanged, on gt, trach/vent, no bleeding 02/17 on vent, labs reviewed, gt, t/v, labs pending Objective Objective Current Medications Medications (Trade) Dose Ordered Sig/Penny Route PRN Reason Start Time Stop Time Status Last Admin Dose Admin Acetaminophen (Tylenol) 500 mg Q6H PRN GT FEVER 01/21/20 20:45 02/20/20 20:44 02/12/20 00:42 Acetaminophen (Tylenol) 650 mg Q6H PRN GT Mild Pain (Pain Scale 1-3) 02/09/20 17:15 03/10/20 17:14 02/09/20 17:39 Acetaminophen/ Hydrocodone Bitart ([place] 5/325) 1 tab Q6H PRN GT moderate-severe pain (7-10) 02/14/20 15:30 02/21/20 15:29 02/18/20 00:11 Amantadine HCl (Symmetrel) 100 mg TWICE A DAY GT 01/31/20 18:00 03/01/20 17:59 02/17/20 17:42 Amlodipine Besylate (Norvasc) 5 mg BID GT 01/22/20 18:00 02/20/20 15:44 02/17/20 17:43 Aspirin (ASA) 81 mg DAILY GT 01/20/20 09:00 03/05/20 08:59 02/17/20 08:52 Atorvastatin Calcium (Lipitor) 10 mg BEDTIME GT 01/17/20 21:00 04/16/20 20:59 02/17/20 20:23 Chlorhexidine Gluconate (Ling-Hex 2%) 1 applic DAILY@1999 TOPIC 02/17/20 20:00 05/17/20 19:59 02/17/20 20:22 Dextrose (Dextrose 50%) 25 ml Q30M PRN IV Hypoglycemia 01/15/20 22:15 04/14/20 22:14 Dextrose (Dextrose 50%) 50 ml Q30M PRN IV Hypoglycemia 01/15/20 22:15 04/14/20 22:14 01/22/20 17:54 Docusate Sodium (Colace) 200 mg BIDPRN PRN GT Constipation 01/31/20 07:45 03/01/20 07:44 02/15/20 22:40 Epoetin Gelacio (Epoetin Gelacio(ESRD on dialysis)) 2,000 unit MON- SUBQ 02/14/20 21:00 05/14/20 20:59 02/17/20 20:59 Epoetin Gelacio (Epoetin Gelacio(ESRD on dialysis)) 8,000 unit SUBQ 02/14/20 21:00 05/14/20 20:59 02/17/20 20:59 Hydralazine HCl (Apresoline) 25 mg Q6HR GT 01/26/20 18:15 04/25/20 18:14 02/18/20 05:05 Isosorbide Dinitrate (Isordil) 20 mg TID GT 01/25/20 09:00 02/19/20 08:59 02/17/20 17:43 Lactulose (Cephulac) 20 gm THREE TIMES A DAY GT 02/04/20 13:00 03/05/20 12:59 02/17/20 17:42 Lansoprazole (Prevacid) 30 mg BID GT 01/19/20 18:00 02/18/20 17:59 02/17/20 17:42 Metoclopramide HCl (Reglan) 5 mg EVERY 6 HOURS GT 02/15/20 18:00 03/16/20 17:59 02/18/20 05:05 Metoprolol Tartrate (Lopressor) 25 mg Q12HR ORAL 01/27/20 21:00 04/22/20 20:59 02/17/20 20:23 Polyethylene Glycol (Miralax) 17 gm BEDTIME GT 02/04/20 21:00 03/05/20 20:59 02/17/20 20:22 Sodium Hypochlorite (Dakin's Quarter Strength) 1 applic DAILY TOPIC 01/30/20 09:00 02/29/20 08:59 02/17/20 08:53 Zinc Oxide (Zinc Oxide) 1 applic TIDPRN PRN TOPIC diogenes GT 01/16/20 13:15 04/15/20 13:14 01/16/20 14:55 Last 24 Hour Vital Signs Date Time Temp Pulse Resp B/P (MAP) Pulse Ox O2 Delivery O2 Flow Rate FiO2 02/18/20 05:05 151/87 02/18/20 04:00 58 02/18/20 04:00 98.2 62 22 148/83 (104) 100 02/18/20 04:00 Mechanical Ventilator Mechanical Ventilator 02/18/20 04:00 40 02/18/20 02:53 57 21 40 02/18/20 00:09 160/61 02/18/20 00:00 Mechanical Ventilator Mechanical Ventilator 02/18/20 00:00 40 02/18/20 00:00 97.8 67 22 161/61 (94) 97 02/18/20 00:00 61 02/17/20 22:50 57 26 40 02/17/20 20:23 89 143/82 02/17/20 20:00 40 02/17/20 20:00 Mechanical Ventilator Mechanical Ventilator 02/17/20 20:00 60 02/17/20 20:00 97.7 60 21 148/92 (110) 100 02/17/20 19:00 57 14 40 02/17/20 17:43 128/80 02/17/20 17:43 128/80 02/17/20 17:43 49 128/80 02/17/20 16:00 97.7 68 14 128/80 (96) 99 02/17/20 16:00 40 02/17/20 16:00 Mechanical Ventilator Mechanical Ventilator 02/17/20 16:00 49 02/17/20 15:15 54 15 40 02/17/20 12:04 134/74 02/17/20 12:04 134/74 02/17/20 12:00 98.2 64 15 134/74 (94) 99 02/17/20 12:00 Mechanical Ventilator Mechanical Ventilator 02/17/20 12:00 51 02/17/20 12:00 40 02/17/20 11:05 50 14 40 02/17/20 08:53 145/73 02/17/20 08:52 60 145/73 02/17/20 08:52 60 145/73 02/17/20 08:00 98.7 60 14 145/73 (97) 99 02/17/20 08:00 53 02/17/20 08:00 40 02/17/20 08:00 Mechanical Ventilator Mechanical Ventilator 02/17/20 07:25 53 14 40 02/17/20 05:41 142/65 02/17/20 04:00 97.7 53 14 142/65 (90) 98 02/17/20 03:55 51 02/17/20 03:42 40 02/17/20 03:41 Mechanical Ventilator Mechanical Ventilator 02/17/20 00:05 58 14 40 02/17/20 00:00 Mechanical Ventilator Mechanical Ventilator 02/17/20 00:00 98.2 53 19 146/87 (106) 99 02/17/20 00:00 55 02/17/20 00:00 40 02/16/20 23:57 157/68 02/16/20 21:31 59 157/68 02/16/20 20:00 98.2 59 15 157/68 (97) 100 02/16/20 20:00 40 02/16/20 20:00 59 02/16/20 20:00 Mechanical Ventilator Mechanical Ventilator 02/16/20 19:05 53 14 40 02/16/20 18:23 150/78 02/16/20 18:23 150/78 02/16/20 18:23 61 150/78 02/16/20 16:00 Mechanical Ventilator Mechanical Ventilator 02/16/20 16:00 98.0 61 17 150/78 (102) 99 02/16/20 16:00 40 02/16/20 15:24 62 02/16/20 12:50 57 14 40 02/16/20 12:31 148/84 02/16/20 12:30 148/84 02/16/20 12:01 66 02/16/20 12:00 Mechanical Ventilator Mechanical Ventilator 02/16/20 12:00 98.2 59 15 148/84 (105) 96 02/16/20 12:00 40 02/16/20 09:09 142/87 02/16/20 09:08 57 142/87 02/16/20 09:08 57 142/87 02/16/20 08:00 98.2 57 15 142/87 (105) 100 02/16/20 08:00 Mechanical Ventilator Mechanical Ventilator 02/16/20 08:00 40 02/16/20 07:46 58 02/16/20 07:12 56 16 40 Intake and Output 02/17/20 02/18/20 19:00 07:00 Intake Total 670 ml 485 ml Output Total 600 ml 400 ml Balance 70 ml 85 ml Free Water 250 ml 100 ml Tube Feeding 420 ml 385 ml Output Urine Total 600 ml 400 ml # Bowel Movements 2 Labs Test 02/15/20 12:27 02/15/20 17:59 02/16/20 04:49 02/18/20 02:45 POC Whole Blood Glucose 84 MG/DL (74-106) White Blood Count 8.1 K/UL (4.8-10.8) Red Blood Count 3.02 M/UL (4.20-5.40) Hemoglobin 8.4 G/DL (12.0-16.0) Hematocrit 25.8 % (37.0-47.0) Mean Corpuscular Volume 85 FL (80-99) Mean Corpuscular Hemoglobin 27.7 PG (27.0-31.0) Mean Corpuscular Hemoglobin Concent 32.4 G/DL (32.0-36.0) Red Cell Distribution Width 15.3 % (11.6-14.8) Platelet Count 267 K/UL (150-450) Mean Platelet Volume 5.3 FL (6.5-10.1) Neutrophils (%) (Auto) 69.9 % (45.0-75.0) Lymphocytes (%) (Auto) 20.8 % (20.0-45.0) Monocytes (%) (Auto) 5.4 % (1.0-10.0) Eosinophils (%) (Auto) 2.7 % (0.0-3.0) Basophils (%) (Auto) 1.1 % (0.0-2.0) Sodium Level 136 MMOL/L (136-145) 136 MMOL/L (136-145) Potassium Level 3.4 MMOL/L (3.5-5.1) 3.7 MMOL/L (3.5-5.1) Chloride Level 100 MMOL/L (98-107) 100 MMOL/L (98-107) Carbon Dioxide Level 28 MMOL/L (21-32) 28 MMOL/L (21-32) Anion Gap 8 mmol/L (5-15) 8 mmol/L (5-15) Blood Urea Nitrogen 83 mg/dL (7-18) 98 mg/dL (7-18) Creatinine 3.9 MG/DL (0.55-1.30) 4.0 MG/DL (0.55-1.30) Estimat Glomerular Filtration Rate 12.4 mL/min (>60) 12.0 mL/min (>60) Glucose Level 79 MG/DL (74-106) 104 MG/DL (74-106) Osmolality 310 mOsm/kg (297-317) Uric Acid 5.7 MG/DL (2.6-7.2) Calcium Level 9.7 MG/DL (8.5-10.1) 10.2 MG/DL (8.5-10.1) Phosphorus Level 3.6 MG/DL (2.5-4.9) 3.9 MG/DL (2.5-4.9) Magnesium Level 3.4 MG/DL (1.8-2.4) 3.2 MG/DL (1.8-2.4) Total Bilirubin 0.4 MG/DL (0.2-1.0) 0.4 MG/DL (0.2-1.0) Aspartate Amino Transf (AST/SGOT) 18 U/L (15-37) 19 U/L (15-37) Alanine Aminotransferase (ALT/SGPT) 6 U/L (12-78) < 6 U/L (12-78) Alkaline Phosphatase 149 U/L (46-116) 159 U/L (46-116) Total Protein 6.9 G/DL (6.4-8.2) 7.0 G/DL (6.4-8.2) Albumin 1.9 G/DL (3.4-5.0) 1.9 G/DL (3.4-5.0) Globulin 5.0 g/dL 5.1 g/dL Albumin/Globulin Ratio 0.4 (1.0-2.7) 0.4 (1.0-2.7) Triglycerides Level 104 MG/DL (30-150) Cholesterol Level 86 MG/DL (< 200) LDL Cholesterol 43 mg/dL (<100) HDL Cholesterol 30 MG/DL (40-60) Cholesterol/HDL Ratio 2.9 (3.3-4.4) Thyroid Stimulating Hormone (TSH) 2.800 uiU/mL (0.358-3.740) Height (Feet): 5 Height (Inches): 6.00 Weight (Pounds): 150 Objective Physical Exam: Vitals: reviewed General: NAD HEENT: nc, at Neck: supple ++trach/vent Chest: clear breath sounds bilaterally Cardiovascular: RRR, no s3, s4 Abdomen: soft, nontender, nd +gtube Extremities: no cce, normal range of motion Neuro: alert Evan Muhammad MD Feb 18, 2020 06:52
--- NOTE | 2020-02-18 07:15 | NUR ---
NURSE HAND-OFF REPORT: Important Events on Shift: Pt is stable, still waiting for placement, mild gtube leaking Patient Status: Stable Diet: GTF Pending Orders: NOne Pending Results/Labs:None Pending MD notification: None Latest Vital Signs: Temperature 98.2 , Pulse 62 , B/P 151 /87 , Respiratory Rate 22 , O2 SAT 100 , Mechanical Ventilator, O2 Flow Rate . Vital Sign Comment: WNL EKG Rhythm: Sinus Bradycardia Rhythm change?: N MD Notified?: N -Dr. Екатерина HATFIELD Response: Order Received& Read Back Latest [place] Fall Score: 70 Fall Risk: High Risk Safety Measures: Call light Within Reach, Bed Alarm Zone 1, Side Rails Side Rails x2, Bed position Low and Locked. Fall Precautions: Yellow Socks Report given to [ERASMO Nino].
[2020-02-18 08:00] VITALS: BP 162/76
--- NOTE | 2020-02-18 08:15 | NUR ---
NURSE NOTES: Received report from ERASMO Forte. Pt is AOx3, pt is trach to vent with settings as ordered AC 14 TV 500, Fio2- 40% PEEP 5 right now o2 sat- 100%Pt is on case monitor showing SR. Pt is on restraints bilateral wrist, no skin discoloration underneath noted, palpable pulses noted. Oral care was performed. Gtube patent and patent no residual noted running Nepro @ 35, IV Right hand g22 and Left wrist g22 still patent c/d/i. Bed in lowest position,call light within reach. pt has Norman intact and patent draining yellow urine. Continue to plan of care.
--- NOTE | 2020-02-18 08:38 | Infectious Diseases Prog Note ---
Assessment/Plan 49yo F with: AF Sepsis Leukocytosis Hypoxia on vent Pneumonia c/b L pleural effusion (recurrent, prior determined to be transudative) - s/p thora 01/21, 1050cc removed Volume overload, BNP >35,0000, likely 2/2 progressive CKD --> ESRD ?Pancreatitis, Lipase >2000 Acute anemia to 5s CONS bacteremia, ?contaminant Aflutter w/ RVR 01/13 BCx 2/2 +S. epi COVID PCR neg Flu neg CXR: Large left pleural effusion. Bilateral interstitial and airspace infiltrates versus edema MRSA nares neg 01/16 BCx NTD 01/17 BCx /2 +Staph auricularis (skin colonizer) 01/18 Resp cx +MDR CRE PsA (S-gent, I-colistin, R-polyB) 01/18 C.dif neg 01/18 CXR: Similar opacification of the left hemithorax likely representing combination of pleural effusion with atelectasis versus pneumonia/edema. Decreased but persistent hazy opacity throughout the right lung may represent edema versus infectious/inflammatory process. 01/20 BCx NTD 01/21 L thora 1050 cc removed, cx NTD 01/25 Wound cx from Gtube site +CRE Kleb pna (arnett-R) and MDR PsA (colonizers) 01/26 CT A/P: Limited exam, due to severe diffuse anasarca. Ascites. Bilateral pleural effusions. Basilar pulmonary atelectatic changes and consolidation. Gastrostomy. Atrophic left kidney with a nephroureteral stents again demonstrated. Possible retrococcygeal decubitus changes. Correlate with clinical findings, consider MRI if there is concern for sacral osteomyelitis. Right hip intertrochanteric fracture, also previously demonstrated. Left femoral dialysis catheter. Nonspecific right lobe liver lesion is unchanged, not well- demonstrated. ctasia bordering on aneurysmal dilatation and possible chronic dissection of the distal thoracic aorta, also previously described. JAVIER on CKD On previous admission Sep-Oct 2019 required HD for short period Going to start HD this admission again R/o COVID / COVID PCR neg 12/29 neg at [facility] per report H/o UTI 10/15 u/a wbc 30-40, nit neg, leuk +3; ucx ESBL P. mirablis, ESBL M. morganii //20 u/a wbc tnct, nit neg, leuk +3; ucx >100k MDR P. stuarti (S Ceftriaxone, Meropenem) 10/07 u/a wbc tnct, nit neg, leuk ; ucx >100k VRE 10/15/19 u/a wbc tnct; ucx >100k ESBL P. stuarti (S ertapenem, aztreonam) H/o transudative pleural effusion 11/28 Sp Thora (w: 169, PMN: 2%, L: 49% , LDH: 57, prot 2.5); cx Neg H/o PNA 10/15/19 Resp cx ESBL P. mirabilis, MDR P.a. (S only to Gent) 09/22 Resp cx + MDR PsA (S-gent; I-colistin; R-levofloxacin, Zosyn, angelo) 09/16/19 Sp cx ESBL P. mirablis H/o PPM site (pocket) infection and pocket abscess 2ry to S. epi-11/2018, sp >6weeks IV vancomycin 11/27 SP ABBIE: no evidence for vegetation on any of the valves 11/26/18 SP PPM removal: OR findings:The fibrous capsule enclosing the generator was then opened and there was a [id number] amount of yellowish fluid drainage. The generator was then removed.Atrial and ventricular leads were detached. The necrotic tissue of the pocket was then removed and the pocket was flushed with an antibiotic solution. Capsule, wound tissue and lead tip cx: Neg 2d echo: no vegetation seen US chest: 4.6 x 3.4 x 0.9 cm hypoechoic/anechoic area overlying left chest pacemaker power pack. This could represent either a discrete fluid collection or a focal area of very edematous tissue. Infected fluid pocket also possible. 11/18 Bcx 3/4 S. epi; 11/20 Bcx neg; 11/24 Bcx Neg; 11/27 Bcx Neg CAD s/p CABG GERD/gastritis Afib HTN Dysphagia sp GT Aortic dissection s/p repair 2017 S/p PPM Parkinson's Disease Schizophrenia Anxiety COPD Chronic resp failure s/p trach Hx of tracheal bleeding DC resident ([facility]) VRE and MRSA colonized Plan: Cont to monitor off abx OK to d/c from ID standpoint 01/31 SP angelo/inh tobra #10 for pna 01/23 SP vanco IV #10 given CONS/GPC bacteremia 01/16 SP Zosyn #2 01/14 SP dex 10mg in ED 12/10 SP IV Gentamycin #10 12/07 SP Meropenem #10 12/01 SP IV Vancomycin #5 11/28 Sp Cefepime #2 and IV Gentamycin x1 Monitor CBC/CMP Monitor temp curve, hemodynamics Monitor resp status D/w RN Thank you for this consult. [facility] will continue to follow. Subjective Allergies: Coded Allergies: No Known Allergies (Unverified , 10/10/17) AF NAD on vent 40% PEEP 5 Objective Last 24 Hour Vital Signs Date Time Temp Pulse Resp B/P (MAP) Pulse Ox O2 Delivery O2 Flow Rate FiO2 02/18/20 08:00 40 02/18/20 08:00 Mechanical Ventilator Mechanical Ventilator 02/18/20 07:12 55 22 40 02/18/20 05:05 151/87 02/18/20 04:00 58 02/18/20 04:00 98.2 62 22 148/83 (104) 100 02/18/20 04:00 Mechanical Ventilator Mechanical Ventilator 02/18/20 04:00 40 02/18/20 02:53 57 21 40 02/18/20 00:09 160/61 02/18/20 00:00 Mechanical Ventilator Mechanical Ventilator 02/18/20 00:00 40 02/18/20 00:00 97.8 67 22 161/61 (94) 97 02/18/20 00:00 61 02/17/20 22:50 57 26 40 02/17/20 20:23 89 143/82 02/17/20 20:00 40 02/17/20 20:00 Mechanical Ventilator Mechanical Ventilator 02/17/20 20:00 60 02/17/20 20:00 97.7 60 21 148/92 (110) 100 02/17/20 19:00 57 14 40 02/17/20 17:43 128/80 02/17/20 17:43 128/80 02/17/20 17:43 49 128/80 02/17/20 16:00 97.7 68 14 128/80 (96) 99 02/17/20 16:00 40 02/17/20 16:00 Mechanical Ventilator Mechanical Ventilator 02/17/20 16:00 49 02/17/20 15:15 54 15 40 02/17/20 12:04 134/74 02/17/20 12:04 134/74 02/17/20 12:00 98.2 64 15 134/74 (94) 99 02/17/20 12:00 Mechanical Ventilator Mechanical Ventilator 02/17/20 12:00 51 02/17/20 12:00 40 02/17/20 11:05 50 14 40 02/17/20 08:53 145/73 02/17/20 08:52 60 145/73 02/17/20 08:52 60 145/73 Height (Feet): 5 Height (Inches): 6.00 Weight (Pounds): 150 Gen: NAD HEENT: NCAT, +trach CV: RRR Pulm: CTAB on vent Abd: Non-distended, +PEG with skin intact wo erythema or discharge, but brownish discharge on dressing Ext: No c/c/e Skin: No visible rashes Neuro: Awake, minimally interactive Lines: L fem HD cath Laboratory Tests Test 02/18/20 02:45 Sodium Level 136 MMOL/L (136-145) Potassium Level 3.7 MMOL/L (3.5-5.1) Chloride Level 100 MMOL/L (98-107) Carbon Dioxide Level 28 MMOL/L (21-32) Anion Gap 8 mmol/L (5-15) Blood Urea Nitrogen 98 mg/dL (7-18) H Creatinine 4.0 MG/DL (0.55-1.30) H Estimat Glomerular Filtration Rate 12.0 mL/min (>60) Glucose Level 104 MG/DL (74-106) Calcium Level 10.2 MG/DL (8.5-10.1) H Phosphorus Level 3.9 MG/DL (2.5-4.9) Magnesium Level 3.2 MG/DL (1.8-2.4) H Total Bilirubin 0.4 MG/DL (0.2-1.0) Aspartate Amino Transf (AST/SGOT) 19 U/L (15-37) Alanine Aminotransferase (ALT/SGPT) < 6 U/L (12-78) L Alkaline Phosphatase 159 U/L (46-116) H Total Protein 7.0 G/DL (6.4-8.2) Albumin 1.9 G/DL (3.4-5.0) L Globulin 5.1 g/dL Albumin/Globulin Ratio 0.4 (1.0-2.7) L Current Medications Medications (Trade) Dose Ordered Sig/Penny Route PRN Reason Start Time Stop Time Status Last Admin Dose Admin Acetaminophen (Tylenol) 500 mg Q6H PRN GT FEVER 01/21/20 20:45 02/20/20 20:44 02/12/20 00:42 Acetaminophen (Tylenol) 650 mg Q6H PRN GT Mild Pain (Pain Scale 1-3) 02/09/20 17:15 03/10/20 17:14 02/09/20 17:39 Acetaminophen/ Hydrocodone Bitart ([place] 5/325) 1 tab Q6H PRN GT moderate-severe pain (7-10) 02/14/20 15:30 02/21/20 15:29 02/18/20 00:11 Amantadine HCl (Symmetrel) 100 mg TWICE A DAY GT 01/31/20 18:00 03/01/20 17:59 02/17/20 17:42 Amlodipine Besylate (Norvasc) 5 mg BID GT 01/22/20 18:00 02/20/20 15:44 02/17/20 17:43 Aspirin (ASA) 81 mg DAILY GT 01/20/20 09:00 03/05/20 08:59 02/17/20 08:52 Atorvastatin Calcium (Lipitor) 10 mg BEDTIME GT 01/17/20 21:00 04/16/20 20:59 02/17/20 20:23 Chlorhexidine Gluconate (Ling-Hex 2%) 1 applic DAILY@2000 TOPIC 02/17/20 20:00 05/17/20 19:59 02/17/20 20:22 Dextrose (Dextrose 50%) 25 ml Q30M PRN IV Hypoglycemia 01/15/20 22:15 04/14/20 22:14 Dextrose (Dextrose 50%) 50 ml Q30M PRN IV Hypoglycemia 01/15/20 22:15 04/14/20 22:14 01/22/20 17:54 Docusate Sodium (Colace) 200 mg BIDPRN PRN GT Constipation 01/31/20 07:45 03/01/20 07:44 02/15/20 22:40 Epoetin Gelacio (Epoetin Gelacio(ESRD on dialysis)) 2,000 unit SUBQ 02/14/20 21:00 05/14/20 20:59 02/17/20 20:59 Epoetin Gelacio (Epoetin Gelacio(ESRD on dialysis)) 8,000 unit SUBQ 02/14/20 21:00 05/14/20 20:59 02/17/20 20:59 Hydralazine HCl (Apresoline) 25 mg Q6HR GT 01/26/20 18:15 04/25/20 18:14 02/18/20 05:05 Isosorbide Dinitrate (Isordil) 20 mg TID GT 01/25/20 09:00 02/19/20 08:59 02/17/20 17:43 Lactulose (Cephulac) 20 gm THREE TIMES A DAY GT 02/04/20 13:00 03/05/20 12:59 02/17/20 17:42 Lansoprazole (Prevacid) 30 mg BID GT 01/19/20 18:00 02/18/20 17:59 02/17/20 17:42 Metoclopramide HCl (Reglan) 5 mg EVERY 6 HOURS GT 02/15/20 18:00 03/16/20 17:59 02/18/20 05:05 Metoprolol Tartrate (Lopressor) 25 mg Q12HR ORAL 01/27/20 21:00 04/22/20 20:59 02/17/20 20:23 Polyethylene Glycol (Miralax) 17 gm BEDTIME GT 02/04/20 21:00 03/05/20 20:59 02/17/20 20:22 Sodium Hypochlorite (Dakin's Quarter Strength) 1 applic DAILY TOPIC 01/30/20 09:00 02/29/20 08:59 02/17/20 08:53 Zinc Oxide (Zinc Oxide) 1 applic TIDPRN PRN TOPIC diogenes GT 01/16/20 13:15 04/15/20 13:14 01/16/20 14:55 Ro Pack M.D. Feb 18, 2020 08:38
--- NOTE | 2020-02-18 08:44 | General Progress Note ---
Subjective ROS Limited/Unobtainable: No Allergies: Coded Allergies: No Known Allergies (Unverified , 10/10/17) Objective Last 24 Hour Vital Signs Date Time Temp Pulse Resp B/P (MAP) Pulse Ox O2 Delivery O2 Flow Rate FiO2 02/18/20 08:00 40 02/18/20 08:00 Mechanical Ventilator Mechanical Ventilator 02/18/20 07:12 55 22 40 02/18/20 05:05 151/87 02/18/20 04:00 58 02/18/20 04:00 98.2 62 22 148/83 (104) 100 02/18/20 04:00 Mechanical Ventilator Mechanical Ventilator 02/18/20 04:00 40 02/18/20 02:53 57 21 40 02/18/20 00:09 160/61 02/18/20 00:00 Mechanical Ventilator Mechanical Ventilator 02/18/20 00:00 40 02/18/20 00:00 97.8 67 22 161/61 (94) 97 02/18/20 00:00 61 02/17/20 22:50 57 26 40 02/17/20 20:23 89 143/82 02/17/20 20:00 40 02/17/20 20:00 Mechanical Ventilator Mechanical Ventilator 02/17/20 20:00 60 02/17/20 20:00 97.7 60 21 148/92 (110) 100 02/17/20 19:00 57 14 40 02/17/20 17:43 128/80 02/17/20 17:43 128/80 02/17/20 17:43 49 128/80 02/17/20 16:00 97.7 68 14 128/80 (96) 99 02/17/20 16:00 40 02/17/20 16:00 Mechanical Ventilator Mechanical Ventilator 02/17/20 16:00 49 02/17/20 15:15 54 15 40 02/17/20 12:04 134/74 02/17/20 12:04 134/74 02/17/20 12:00 98.2 64 15 134/74 (94) 99 02/17/20 12:00 Mechanical Ventilator Mechanical Ventilator 02/17/20 12:00 51 02/17/20 12:00 40 02/17/20 11:05 50 14 40 02/17/20 08:53 145/73 02/17/20 08:52 60 145/73 02/17/20 08:52 60 145/73 Intake and Output 02/17/20 02/18/20 19:00 07:00 Intake Total 670 ml 485 ml Output Total 600 ml 400 ml Balance 70 ml 85 ml Free Water 250 ml 100 ml Tube Feeding 420 ml 385 ml Output Urine Total 600 ml 400 ml # Bowel Movements 2 Laboratory Tests 02/18/20 02:45: Sodium Level 136, Potassium Level 3.7, Chloride Level 100, Carbon Dioxide Level 28, Anion Gap 8, Blood Urea Nitrogen 98H, Creatinine 4.0H, Estimat Glomerular Filtration Rate 12.0, Glucose Level 104, Calcium Level 10.2H, Phosphorus Level 3.9, Magnesium Level 3.2H, Total Bilirubin 0.4, Aspartate Amino Transf (AST/SGOT) 19, Alanine Aminotransferase (ALT/SGPT) < 6L, Alkaline Phosphatase 159H, Total Protein 7.0, Albumin 1.9L, Globulin 5.1, Albumin/Globulin Ratio 0.4L Height (Feet): 5 Height (Inches): 6.00 Weight (Pounds): 150 General Appearance: no apparent distress EENT: normal ENT inspection Neck: supple Cardiovascular: normal rate Respiratory/Chest: decreased breath sounds Abdomen: normal bowel sounds, non tender, soft Extremities: non-tender Assessment/Plan Problem List: (1) Hx of CABG ICD Codes: Z95.1 - Presence of aortocoronary bypass graft SNOMED: 899112894, 074259893 (2) History of tracheostomy ICD Codes: Z98.890 - Other specified postprocedural states SNOMED: 063855272, 681965685 (3) PEG (percutaneous endoscopic gastrostomy) status ICD Codes: Z93.1 - Gastrostomy status SNOMED: 129884747, 494522045 (4) S/P aortic dissection repair ICD Codes: Z98.890 - Other specified postprocedural states SNOMED: 821110764, 779806703 (5) Renal failure ICD Codes: N19 - Unspecified kidney failure SNOMED: 41560981, 013427480 (6) Anemia ICD Codes: D64.9 - Anemia, unspecified SNOMED: 993794347 Assessment/Plan: stable H&H repeat stool ob GTF some GT leak reglan topical Zinc oxide HD per nephrology persistent elevated lipase\ ct reviewed s/p one unit prbc cbc in am Inder Mccauley MD Feb 18, 2020 08:44
[2020-02-18] MEDS: Aspirin Baby 81mg GT SCH (09:37)
[2020-02-18] MEDS: Amantadine 100mg cap GT SCH ×2 (09:37→17:22)
[2020-02-18] MEDS: Lactulose 20gm/30ml UDC GT SCH ×3 (09:38→17:21)
[2020-02-18] MEDS: Dakin's 0.125% Soln (Quarter Strength) 16oz TOPIC SCH (09:39)
--- NOTE | 2020-02-18 11:57 | NUR ---
*-*DISCHARGE PLANNING*-* PATIENT HAS BEEN ACCEPTED BACK TO: [facility] P: [phone] ROOM# 18 [facility] SET FOR WILL CALL.
--- NOTE | 2020-02-18 11:59 | NUR ---
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
[2020-02-18 12:00] VITALS: BP 146/86
--- NOTE | 2020-02-18 12:08 | Pulmonology Progress Note ---
Subjective ROS Limited/Unobtainable: No Interval Events: none major reported per nursing Constitutional: Reports: no symptoms HEENT: Repors: no symptoms Respiratory: Reports: no symptoms Cardiovascular: Reports: no symptoms Gastrointestinal/Abdominal: Reports: no symptoms Allergies: Coded Allergies: No Known Allergies (Unverified , 10/10/17) All Systems: reviewed and negative except above Objective Last 24 Hour Vital Signs Date Time Temp Pulse Resp B/P (MAP) Pulse Ox O2 Delivery O2 Flow Rate FiO2 02/18/20 10:38 70 21 40 02/18/20 10:08 98.2 02/18/20 09:38 64 162/76 02/18/20 09:37 64 162/76 02/18/20 09:37 162/76 02/18/20 08:00 40 02/18/20 08:00 98.8 62 21 162/76 (104) 100 02/18/20 08:00 64 02/18/20 08:00 Mechanical Ventilator Mechanical Ventilator 02/18/20 07:12 55 22 40 02/18/20 05:05 151/87 02/18/20 04:00 58 02/18/20 04:00 98.2 62 22 148/83 (104) 100 02/18/20 04:00 Mechanical Ventilator Mechanical Ventilator 02/18/20 04:00 40 02/18/20 02:53 57 21 40 02/18/20 00:09 160/61 02/18/20 00:00 Mechanical Ventilator Mechanical Ventilator 02/18/20 00:00 40 02/18/20 00:00 97.8 67 22 161/61 (94) 97 02/18/20 00:00 61 02/17/20 22:50 57 26 40 02/17/20 20:23 89 143/82 02/17/20 20:00 40 02/17/20 20:00 Mechanical Ventilator Mechanical Ventilator 02/17/20 20:00 60 02/17/20 20:00 97.7 60 21 148/92 (110) 100 02/17/20 19:00 57 14 40 02/17/20 17:43 128/80 02/17/20 17:43 128/80 02/17/20 17:43 49 128/80 02/17/20 16:00 97.7 68 14 128/80 (96) 99 02/17/20 16:00 40 02/17/20 16:00 Mechanical Ventilator Mechanical Ventilator 02/17/20 16:00 49 02/17/20 15:15 54 15 40 Intake and Output 02/17/20 02/18/20 19:00 07:00 Intake Total 670 ml 485 ml Output Total 600 ml 400 ml Balance 70 ml 85 ml Free Water 250 ml 100 ml Tube Feeding 420 ml 385 ml Output Urine Total 600 ml 400 ml # Bowel Movements 2 Objective saturating well on current vent setting General Appearance: no acute distress HEENT: normocephalic, other - trach Respiratory: chest wall non-tender, other - coarse lung sounds Cardiovascular: normal rate, regular rhythm, other - s/p pacemaker, October 2018 Abdomen: soft, non tender Genitourinary: other - [place] Extremities: other - trace edema Laboratory Tests 02/18/20 02:45: Sodium Level 136, Potassium Level 3.7, Chloride Level 100, Carbon Dioxide Level 28, Anion Gap 8, Blood Urea Nitrogen 98H, Creatinine 4.0H, Estimat Glomerular Filtration Rate 12.0, Glucose Level 104, Calcium Level 10.2H, Phosphorus Level 3.9, Magnesium Level 3.2H, Total Bilirubin 0.4, Aspartate Amino Transf (AST/SGOT) 19, Alanine Aminotransferase (ALT/SGPT) < 6L, Alkaline Phosphatase 159H, Total Protein 7.0, Albumin 1.9L, Globulin 5.1, Albumin/Globulin Ratio 0.4L Current Medications Medications (Trade) Dose Ordered Sig/Penny Route PRN Reason Start Time Stop Time Status Last Admin Dose Admin Acetaminophen (Tylenol) 500 mg Q6H PRN GT FEVER 01/21/20 20:45 02/20/20 20:44 02/12/20 00:42 Acetaminophen (Tylenol) 650 mg Q6H PRN GT Mild Pain (Pain Scale 1-3) 02/09/20 17:15 03/10/20 17:14 02/09/20 17:39 Acetaminophen/ Hydrocodone Bitart (Pony 5/325) 1 tab Q6H PRN GT moderate-severe pain (7-10) 02/14/20 15:30 02/21/20 15:29 02/18/20 09:38 Amantadine HCl (Symmetrel) 100 mg TWICE A DAY GT 01/31/20 18:00 03/01/20 17:59 02/18/20 09:37 Amlodipine Besylate (Norvasc) 5 mg BID GT 01/22/20 18:00 02/20/20 15:44 02/18/20 09:38 Aspirin (ASA) 81 mg DAILY GT 01/20/20 09:00 03/05/20 08:59 02/18/20 09:37 Atorvastatin Calcium (Lipitor) 10 mg BEDTIME GT 01/17/20 21:00 04/16/20 20:59 02/17/20 20:23 Chlorhexidine Gluconate (Ling-Hex 2%) 1 applic DAILY@1999 TOPIC 02/17/20 20:00 05/17/20 19:59 02/17/20 20:22 Dextrose (Dextrose 50%) 25 ml Q30M PRN IV Hypoglycemia 01/15/20 22:15 04/14/20 22:14 Dextrose (Dextrose 50%) 50 ml Q30M PRN IV Hypoglycemia 01/15/20 22:15 04/14/20 22:14 01/22/20 17:54 Docusate Sodium (Colace) 200 mg BIDPRN PRN GT Constipation 01/31/20 07:45 03/01/20 07:44 02/15/20 22:40 Epoetin Gelacio (Epoetin Gelacio(ESRD on dialysis)) 2,000 unit MON-MON-MON SUBQ 02/14/20 21:00 05/14/20 20:59 02/17/20 20:59 Epoetin Gelacio (Epoetin Gelacio(ESRD on dialysis)) 8,000 unit MON-MON-MON SUBQ 02/14/20 21:00 05/14/20 20:59 02/17/20 20:59 Hydralazine HCl (Apresoline) 25 mg Q6HR GT 01/26/20 18:15 04/25/20 18:14 02/18/20 05:05 Isosorbide Dinitrate (Isordil) 20 mg TID GT 01/25/20 09:00 02/19/20 08:59 02/18/20 09:37 Lactulose (Cephulac) 20 gm THREE TIMES A DAY GT 02/04/20 13:00 03/05/20 12:59 02/18/20 09:38 Lansoprazole (Prevacid) 30 mg BID GT 12/6/20 18:00 02/18/20 17:59 02/18/20 09:38 Metoclopramide HCl (Reglan) 5 mg EVERY 6 HOURS GT 02/15/20 18:00 03/16/20 17:59 02/18/20 05:05 Metoprolol Tartrate (Lopressor) 25 mg Q12HR ORAL 01/27/20 21:00 04/22/20 20:59 02/18/20 09:37 Polyethylene Glycol (Miralax) 17 gm BEDTIME GT 02/04/20 21:00 03/05/20 20:59 02/17/20 20:22 Sodium Hypochlorite (Dakin's Quarter Strength) 1 applic DAILY TOPIC 01/30/20 09:00 02/29/20 08:59 02/18/20 09:39 Zinc Oxide (Zinc Oxide) 1 applic TIDPRN PRN TOPIC diogenes GT 01/16/20 13:15 04/15/20 13:14 01/16/20 14:55 Assessment/Plan Assessment/Plan 1. Large left effusion. - S/p thoracentesis; CXR better - pleural fluid pathology report: negative for malignant cell 2. Chronic respiratory failure. - Continue trach care - Cont AC mode - Currently saturating at 99% 3. Sepsis; improving 4. Anemia - s/p transfusion - s/p Epogen Hyponatremia, hypokalemia - Dr. Houston following s/p HD on broad-spectrum antibiotics. Pulmonary hygiene. DVT and GI prophylaxes. Dc planning in place FiO2 increased previously to 60%; now decreased to 40%; will wean further as tolerated Medically stable for discharge on oxygen from pulmonary stand point The care for this patient was discussed with my supervising physician Time spent for this case was approximately 31 minutes Cruz Wilson Feb 18, 2020 12:08
--- NOTE | 2020-02-18 12:29 | NUR ---
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
--- NOTE | 2020-02-18 13:51 | Nephrology Progress Note ---
Assessment/Plan Problem List: (1) ARF (acute renal failure) (2) Pacemaker (3) Sepsis (4) Hyponatremia Assessment (1) JAVIER (acute kidney injury) (2) Renal failure (ARF), acute on chronic (3) Feeding by G-tube (4) Tracheostomy in place (5) Electrolyte imbalance, hyponatremia (6) Anemia, severe (7) Respiratory failure, acute and chronic (8) Elevated lipase, pancreatitis (9) Elevated troponin I (10) Sepsis Plan February 17: Labs reviewed. Serum creatinine 4. Serum calcium high especially compared to low albumin. 60 mg pamidronate ordered. We can hold on dialysis at this time. However the permacath should not be discontinued as I believe the patient will require hemodialysis soon. February 16: No labs drawn today. Will check lab tomorrow. Patient has not required dialysis for sometimes. February 15: Labs reviewed. Abnormal electrolytes addressed. Continue to be stable from renal standpoint of view off dialysis. February 14: Labs reviewed. Abnormal electrolytes addressed. Patient has not been dialyzed since February 07. Continue to monitor renal parameters. February 13: Hemoglobin up to 9.2. Low potassium and low sodium addressed. Continue to monitor renal parameters. Hemodialysis as needed. February 12: Labs reviewed. Hemoglobin 6.8. Creatinine 3.7 and stable. Transfusion will defer to Dr. Radford. Continue to monitor CBC and CHEM panel. February 11: Labs reviewed. Serum creatinine 3.6. Low potassium addressed. Dialysis as needed. Will monitor renal parameters. February 10: Labs reviewed. Potassium replaced. Serum sodium 132. Check labs tomorrow. Dialysis as needed. February 09: No labs drawn today. Last dialysis February 07. Will check lab tomorrow. Hemodialysis as needed. February 08: Labs reviewed. Dialyzed yesterday. Stable from renal standpoint of view. Continue to monitor electrolytes and order dialysis as needed. February 07: Labs reviewed. Due for dialysis today. Continue per consultants. February 06: Labs reviewed. Last dialysis February 03. Will postpone today's dialysis to tomorrow. Continue per current treatment plan. February 05: Labs reviewed. Last dialysis February 03. Will order dialysis to [facility]. Waiting for tunneled catheter placement. February 04: Labs reviewed. Dialyzed yesterday. With a plan for insertion of a tunneled dialysis catheter and discontinue left groin dialysis catheter afterwards. Check labs in a.m. Discussed with Dr. Dong. February 03: Labs reviewed. Due for dialysis today. Continue per consultants. February 02: Labs reviewed. Will order dialysis tomorrow. Continue per consultants. February 01: Labs reviewed. Creatinine gradually rising. Will dialyze as needed. Continue to monitor renal parameters. January 31: Last dialysis January 29. Labs reviewed. No need for dialysis today. Continue per current management. Hemodialysis as needed. Will check renal parameters and chemistries tomorrow. January 30: Patient was dialyzed yesterday. No labs drawn today. Continue to monitor renal parameters and dialyze as needed. Continue per consultants and PMD. January 29: Patient due for dialysis today. Today's can panel reviewed. Continue to monitor renal parameters and dialysis as needed. January 28: Patient last dialyzed January 26. No labs drawn today. Will order dialysis tomorrow. Check chemistry panel tomorrow. Continue per consultants. January 27: Patient was dialyzed yesterday . Labs were reviewed. Electrolytes within normal limit. Blood pressure stable. January 26: When visited the patient earlier today the patient was on dialysis. Tolerating well. Labs reviewed. Blood pressure stable. January 25: Dialysis for tomorrow. Labs reviewed. Hemoglobin remains low. Will adjust blood pressure medication. Hydralazine added to the regimen January 24: Last dialyzed January 22. Labs reviewed. Status quo. Will dialyze as needed. Low hemoglobin noted. Transfusion per PMD decision. Epogen started. \January 23: Dialyzed yesterday. Today's labs reviewed. Continue to monitor renal parameters and arrange for dialysis as needed. Continue per PMD. January 22: Seen earlier during dialysis. Labs reviewed. Medication list reviewed. Continue current management. January 21: Labs reviewed. Medication list reviewed. Next hemodialysis tomorrow. Blood pressure medication adjusted. January 20: Dialyzed yesterday. Labs reviewed. Continue per current management. Dialysis as needed. Add Norvasc to blood pressure regimen January 19: Due for dialysis today. Labs reviewed. Continue her current management. Continue to monitor renal parameters and electrolytes. January 18: Dialyzed yesterday. Labs reviewed. Renal parameters electrolytes much improved. Dialysis again tomorrow. Continue rest. January 17: Dialyzed this morning. Labs reviewed. Renal parameters and electrolyte abnormalities improved. Discussed with RN. Continue per consultants. January 16: Dialyzed yesterday. Labs improved. Next dialysis tomorrow. Continue per consultants. January 15: Patient to have dialysis catheter. Emergency dialysis for correction of uremia and electrolyte imbalances Antibiotics Transfusion Continue to monitor renal parameters Per orders Discussed with RN Subjective ROS Limited/Unobtainable: Yes Objective Objective Last 24 Hour Vital Signs Date Time Temp Pulse Resp B/P (MAP) Pulse Ox O2 Delivery O2 Flow Rate FiO2 02/18/20 13:33 146/86 02/18/20 13:32 146/86 02/18/20 12:35 69 02/18/20 12:00 40 02/18/20 12:00 98.4 71 26 146/86 (106) 100 02/18/20 12:00 Mechanical Ventilator Mechanical Ventilator 02/18/20 10:38 70 21 40 02/18/20 10:08 98.2 02/18/20 09:38 64 162/76 02/18/20 09:37 64 162/76 02/18/20 09:37 162/76 02/18/20 08:00 40 02/18/20 08:00 98.8 62 21 162/76 (104) 100 02/18/20 08:00 64 02/18/20 08:00 Mechanical Ventilator Mechanical Ventilator 02/18/20 07:12 55 22 40 02/18/20 05:05 151/87 02/18/20 04:00 58 02/18/20 04:00 98.2 62 22 148/83 (104) 100 02/18/20 04:00 Mechanical Ventilator Mechanical Ventilator 02/18/20 04:00 40 02/18/20 02:53 57 21 40 02/18/20 00:09 160/61 02/18/20 00:00 Mechanical Ventilator Mechanical Ventilator 02/18/20 00:00 40 02/18/20 00:00 97.8 67 22 161/61 (94) 97 02/18/20 00:00 61 02/17/20 22:50 57 26 40 02/17/20 20:23 89 143/82 02/17/20 20:00 40 02/17/20 20:00 Mechanical Ventilator Mechanical Ventilator 02/17/20 20:00 60 02/17/20 20:00 97.7 60 21 148/92 (110) 100 02/17/20 19:00 57 14 40 02/17/20 17:43 128/80 02/17/20 17:43 128/80 1/4/21 17:43 49 128/80 02/17/20 16:00 97.7 68 14 128/80 (96) 99 02/17/20 16:00 40 02/17/20 16:00 Mechanical Ventilator Mechanical Ventilator 02/17/20 16:00 49 02/17/20 15:15 54 15 40 Intake and Output 02/17/20 02/18/20 19:00 07:00 Intake Total 670 ml 485 ml Output Total 600 ml 400 ml Balance 70 ml 85 ml Free Water 250 ml 100 ml Tube Feeding 420 ml 385 ml Output Urine Total 600 ml 400 ml # Bowel Movements 2 Laboratory Tests 02/18/20 02:45: Sodium Level 136, Potassium Level 3.7, Chloride Level 100, Carbon Dioxide Level 28, Anion Gap 8, Blood Urea Nitrogen 98H, Creatinine 4.0H, Estimat Glomerular Filtration Rate 12.0, Glucose Level 104, Calcium Level 10.2H, Phosphorus Level 3.9, Magnesium Level 3.2H, Total Bilirubin 0.4, Aspartate Amino Transf (AST/SGOT) 19, Alanine Aminotransferase (ALT/SGPT) < 6L, Alkaline Phosphatase 159H, Total Protein 7.0, Albumin 1.9L, Globulin 5.1, Albumin/Globulin Ratio 0.4L Height (Feet): 5 Height (Inches): 6.00 Weight (Pounds): 150 General Appearance: no apparent distress EENT: other - Trach to vent Cardiovascular: normal rate Respiratory/Chest: decreased breath sounds Abdomen: soft Objective No change Johnny Houston MD Feb 18, 2020 13:51
[2020-02-18] MEDS ORDERED: Pamidronate Disodium Inj 60 MG in Sodium Chloride 550 ML IVPB ONE ×2 (14:00→15:00)
--- NOTE | 2020-02-18 15:01 | Surgery Progress Note ---
Surgery Progress Note Subjective Procedure Performed Left femoral temporary hemodialysis catheter insertion Additional Comments d/c planning labs noted exam stable comfortable appearing Objective Last 24 Hour Vital Signs Date Time Temp Pulse Resp B/P (MAP) Pulse Ox O2 Delivery O2 Flow Rate FiO2 02/18/20 14:32 72 24 40 02/18/20 13:33 146/86 02/18/20 13:32 146/86 02/18/20 12:35 69 02/18/20 12:00 40 02/18/20 12:00 98.4 71 26 146/86 (106) 100 02/18/20 12:00 Mechanical Ventilator Mechanical Ventilator 02/18/20 10:38 70 21 40 02/18/20 10:08 98.2 02/18/20 09:38 64 162/76 02/18/20 09:37 64 162/76 02/18/20 09:37 162/76 02/18/20 08:00 40 02/18/20 08:00 98.8 62 21 162/76 (104) 100 02/18/20 08:00 64 02/18/20 08:00 Mechanical Ventilator Mechanical Ventilator 02/18/20 07:12 55 22 40 02/18/20 05:05 151/87 02/18/20 04:00 58 02/18/20 04:00 98.2 62 22 148/83 (104) 100 02/18/20 04:00 Mechanical Ventilator Mechanical Ventilator 02/18/20 04:00 40 02/18/20 02:53 57 21 40 02/18/20 00:09 160/61 02/18/20 00:00 Mechanical Ventilator Mechanical Ventilator 02/18/20 00:00 40 02/18/20 00:00 97.8 67 22 161/61 (94) 97 02/18/20 00:00 61 02/17/20 22:50 57 26 40 02/17/20 20:23 89 143/82 02/17/20 20:00 40 02/17/20 20:00 Mechanical Ventilator Mechanical Ventilator 02/17/20 20:00 60 02/17/20 20:00 97.7 60 21 148/92 (110) 100 02/17/20 19:00 57 14 40 02/17/20 17:43 128/80 02/17/20 17:43 128/80 02/17/20 17:43 49 128/80 02/17/20 16:00 97.7 68 14 128/80 (96) 99 02/17/20 16:00 40 02/17/20 16:00 Mechanical Ventilator Mechanical Ventilator 02/17/20 16:00 49 02/17/20 15:15 54 15 40 I&O Intake and Output 02/17/20 02/18/20 19:00 07:00 Intake Total 670 ml 485 ml Output Total 600 ml 400 ml Balance 70 ml 85 ml Free Water 250 ml 100 ml Tube Feeding 420 ml 385 ml Output Urine Total 600 ml 400 ml # Bowel Movements 2 Cardiovascular: RSR Respiratory: decreased breath sounds Abdomen: soft, non-tender, present bowel sounds, non-distended Extremities: no edema, no tenderness, no cyanosis Laboratory Tests Test 02/18/20 02:45 Sodium Level 136 MMOL/L (136-145) Potassium Level 3.7 MMOL/L (3.5-5.1) Chloride Level 100 MMOL/L (98-107) Carbon Dioxide Level 28 MMOL/L (21-32) Anion Gap 8 mmol/L (5-15) Blood Urea Nitrogen 98 mg/dL (7-18) H Creatinine 4.0 MG/DL (0.55-1.30) H Estimat Glomerular Filtration Rate 12.0 mL/min (>60) Glucose Level 104 MG/DL (74-106) Calcium Level 10.2 MG/DL (8.5-10.1) H Phosphorus Level 3.9 MG/DL (2.5-4.9) Magnesium Level 3.2 MG/DL (1.8-2.4) H Total Bilirubin 0.4 MG/DL (0.2-1.0) Aspartate Amino Transf (AST/SGOT) 19 U/L (15-37) Alanine Aminotransferase (ALT/SGPT) < 6 U/L (12-78) L Alkaline Phosphatase 159 U/L (46-116) H Total Protein 7.0 G/DL (6.4-8.2) Albumin 1.9 G/DL (3.4-5.0) L Globulin 5.1 g/dL Albumin/Globulin Ratio 0.4 (1.0-2.7) L Plan Problems: (1) Dehydration (2) Acidosis (3) Depression (4) Pleural effusion (5) Respiratory failure (6) Schizophrenia (7) Hypoxia (8) UTI (urinary tract infection) (9) Pneumonia (10) NSTEMI (non-ST elevated myocardial infarction) (11) Tracheostomy in place (12) Feeding by G-tube (13) JAVIER (acute kidney injury) (14) Acute encephalopathy (15) Sacral decubitus ulcer, stage IV (16) Chronic respiratory failure (17) Ascites (18) Bacteremia (19) Hypernatremia (20) Proteinuria (21) Electrolyte imbalance (22) ACS (acute coronary syndrome) (23) Aortic dissection, thoracic (24) Respiratory failure, acute and chronic (25) JAVIER (acute kidney injury) (26) Abrasion of lip, initial encounter (27) COPD with exacerbation (28) Elevated alkaline phosphatase level (29) Renal failure (ARF), acute on chronic (30) HCAP (healthcare-associated pneumonia) (31) GT CLOGGED (32) Elevated lipase (33) Pancreatitis (34) Elevated troponin (35) Hypokalemia (36) Hyponatremia (37) Anemia (38) Renal failure (39) ARF (acute renal failure) (40) Pacemaker (41) Sepsis Assessment & Plan: leukocytosis anemia on HD renal insufficiency wounds addressed pancreatitis cont diet as tolerating trend labs lf'ts okay bleeding from permacath site suture used and hemostasis obtained plan removal of fem line if stable tomorrow pt presented on admission with Tracheostomy ,GT and Multiple Pressure Injuries. Skin assessment of skin under tracheal collar without evidence of skin breakdown. Peristomal GT site excoriated.Moderate amt of dark red sanguineous exudate. Full Thickness Sacral Pressure Injury with undermined borders (L)9 cm x (W)12cm x (D)1.8cm,Undermining clockwise8-9 by 2.2cm @1o'clock,undermining clockwise 1-4 by 1.9 @ 9'oclock Scattered necrotic tissue within wound bed. Borders are loose and necrotic with marginal erythema to outer perimeter of wound. NO elevation in skin temp noted periwound. Wound is malodorous. Small amt Brown exudate noted. Resolving Pressure Injury L Ischium(L)1.5cm x (W)1.5cm. Base of wound is 80% pink epithelial with an area that is moist and pink. NO odor or exudate noted. Bilat foot-drop noted. L Heel is boggy with non-blanchable erythema(L)4cm x (W)4cm. R heel is boggy with non-Blanchable erythema(L)5cm x (W)6cm. Tx.Plan: Cleanse sacral wound with Dakin's 0.125% annie. Loosely pack with Dakin's moistened Kerlix(Attention to undermined borders). Apply Moisture Barrier Paste periwound. Cover with Optifoam drsg. Change Daily and PRN. Apply Cavilon Skin Barrier to R and L Hels. Cover each heel with Optifoam drsg. Change every 7 days and prn. Reposition at least every 2hours or as tolerated. Off-load heels with Pillow. APM/JENNIFER MAttress overlay DAILY ESTIMATED NEEDS: Needs based on Critical care, wound, renal dysfunction 56 kg abw 28-33 kcals/kg 1036-7002 total kcals W/ HD (1.5-2.0) g protein/kg 84-112 g total protein Fluid per MD NUTRITION DIAGNOSIS: * Swallowing difficulty R/T dysphagia, respiratory status as evidenced by vent dep via trach, GT Dep. * Increase kcal and pro needs r/t wound healing, renal dysfunction as evidenced by admitted w/ stage 4 sacral wound, admitted w/ JAVIER, now on HD. CURRENT TF: Nepro @ 40ml/hr x 24 hrs-> now @35ml/hr ENTERAL NUTRITION RECOMMENDATIONS: Nepro @ 40ml/hr x 24 hrs + Prosource 1pkt QD to provide 960ml, 1728kcal, 78g+11g prot, 698ml free water * As medically appropriate, increase TF goal rate to 40ml/hr x 24 hrs * Add Prosource 1pkt QD to better meet increased protein needs (additional 11g prot) * Water flush per MD/ HOB over 30 degrees ADDITIONAL RECOMMENDATIONS: * Per SNF in NOV 2019: HT=63"/ Rec daily calibrated bedscale wt * Monitor for continuity of HD, last HD 02/07 * Rec phos binders- consistently elevated phos level -> now wnl * Wound care: add Nephrovite x 1, ZnSO4 220mg QD x 10 days Reynaldo BID via PEG (mix w/ 2-4 oz water); vit C per nephro * Monitor TF tolerance: TF lowered for GT leak, increase as able * Add bowel regimen: now added, last BM 02/09 (42) Hyponatremia Lane Saavedra Feb 18, 2020 15:01
[2020-02-18 16:00] VITALS: BP 153/84
--- NOTE | 2020-02-18 16:15 | NUR ---
*-*DISCHARGE PLANNED*-* PATIENT HAS BEEN ACCEPTED AND WILL BE DISCHARGED BACK TO: [facility] P: [phone] ROOM# 18 [facility] SET FOR 5:45pm [id number]. S/W PATIENTS FAMILY FRANCISCO, WHO IS IN AGREEMENT WITH DISCHARGE PLAN.
[2020-02-18 17:22] VITALS: BP 153/84
--- NOTE | 2020-02-18 18:25 | General Progress Note ---
Subjective Constitutional: Reports: no symptoms HEENT: Reports: no symptoms Cardiovascular: Reports: no symptoms Respiratory: Reports: no symptoms Genitourinary: Reports: no symptoms Neurologic/Psychiatric: Reports: no symptoms Endocrine: Reports: no symptoms Hematologic/Lymphatic: Reports: no symptoms Allergies: Coded Allergies: No Known Allergies (Unverified , 10/10/17) Objective Last 24 Hour Vital Signs Date Time Temp Pulse Resp B/P (MAP) Pulse Ox O2 Delivery O2 Flow Rate FiO2 02/18/20 17:22 71 153/84 02/18/20 17:21 153/84 02/18/20 17:21 153/84 02/18/20 16:00 40 02/18/20 16:00 71 02/18/20 16:00 Mechanical Ventilator Mechanical Ventilator 02/18/20 16:00 98.2 70 22 153/84 (107) 100 02/18/20 14:32 72 24 40 02/18/20 13:33 146/86 02/18/20 13:32 146/86 02/18/20 12:35 69 02/18/20 12:00 40 02/18/20 12:00 98.4 71 26 146/86 (106) 100 02/18/20 12:00 Mechanical Ventilator Mechanical Ventilator 02/18/20 10:38 70 21 40 02/18/20 10:08 98.2 02/18/20 09:38 64 162/76 02/18/20 09:37 64 162/76 02/18/20 09:37 162/76 02/18/20 08:00 40 02/18/20 08:00 98.8 62 21 162/76 (104) 100 02/18/20 08:00 64 02/18/20 08:00 Mechanical Ventilator Mechanical Ventilator 02/18/20 07:12 55 22 40 02/18/20 05:05 151/87 02/18/20 04:00 58 02/18/20 04:00 98.2 62 22 148/83 (104) 100 02/18/20 04:00 Mechanical Ventilator Mechanical Ventilator 02/18/20 04:00 40 02/18/20 02:53 57 21 40 02/18/20 00:09 160/61 02/18/20 00:00 Mechanical Ventilator Mechanical Ventilator 02/18/20 00:00 40 02/18/20 00:00 97.8 67 22 161/61 (94) 97 02/18/20 00:00 61 02/17/20 22:50 57 26 40 02/17/20 20:23 89 143/82 02/17/20 20:00 40 02/17/20 20:00 Mechanical Ventilator Mechanical Ventilator 02/17/20 20:00 60 02/17/20 20:00 97.7 60 21 148/92 (110) 100 02/17/20 19:00 57 14 40 Intake and Output 02/17/20 02/18/20 19:00 07:00 Intake Total 670 ml 520 ml Output Total 600 ml 400 ml Balance 70 ml 120 ml Free Water 250 ml 100 ml Tube Feeding 420 ml 420 ml Output Urine Total 600 ml 400 ml # Bowel Movements 2 Laboratory Tests 02/18/20 02:45: Sodium Level 136, Potassium Level 3.7, Chloride Level 100, Carbon Dioxide Level 28, Anion Gap 8, Blood Urea Nitrogen 98H, Creatinine 4.0H, Estimat Glomerular Filtration Rate 12.0, Glucose Level 104, Calcium Level 10.2H, Phosphorus Level 3.9, Magnesium Level 3.2H, Total Bilirubin 0.4, Aspartate Amino Transf (AST/SGOT) 19, Alanine Aminotransferase (ALT/SGPT) < 6L, Alkaline Phosphatase 159H, Total Protein 7.0, Albumin 1.9L, Globulin 5.1, Albumin/Globulin Ratio 0.4L 02/18/20 17:56: POC Whole Blood Glucose 90 Height (Feet): 5 Height (Inches): 6.00 Weight (Pounds): 150 General Appearance: WD/WN, alert EENT: normal ENT inspection Neck: supple Cardiovascular: normal rate, regular rhythm, no gallop/murmur, no JVD Respiratory/Chest: lungs clear, normal breath sounds, no respiratory distress, no accessory muscle use Abdomen: normal bowel sounds, non tender, soft, no organomegaly, no mass Extremities: non-tender Skin: warm/dry Assessment/Plan Status Narrative Patient is awake alert afebrile hemodynamically stable but develop moderate hypercalcemia today and received pamidronate 60 mg IV is now cleared by the infectious disease heading repairer and by the insurance marketing specialist she will be discharged today back to the extended care facility she will still keep her hemodialysis catheter for the next several weeks to ascertain the patient can survive without need for dialysis and BMP will be done twice a week on a regular basis to make sure the patient does not develop prerenal azotemia or progressive renal failure the case has been discussed with the insurance marketing specialist as a Lucas Paul MD, MD Feb 18, 2020 18:25
--- NOTE | 2020-02-18 19:25 | NUR ---
NURSE NOTES: Received patient from [facility] Nino. Patient is in bed without any acute distress noted. sinus rhythm on the monitor. trach to vent at prescribed settings, tolerating well. Gtube in place, flushed, feeding stopped. Norman in place and draining well to gravity. Patient is ready for discharged. waiting for [facility] to picker patient. bed to lowest position and locked, call light within easy reach. will continue to monitor patient.
[2020-02-18] MEDS ORDERED: NS 275ml ONE (20:19)
--- NOTE | 2020-02-18 20:20 | NUR ---
NURSE NOTES: [facility] transport team arrived and picked up patient. vital signs stable. Winger was given due to patient complaining of pain. telemonitor off. IV access discontinued.
--- NOTE | 2020-02-19 00:26 | Cardiology Progress Note ---
Subjective DATE OF SERVICE: Feb 18, 2020 Continues with HD schedule per renal Remains in sinus rhythm. Occasional PVC's - non-sustained BP range stable Full vent support via trach s/p left thorocentesis 01/22/20 Objective Last 24 Hour Vital Signs Date Time Temp Pulse Resp B/P (MAP) Pulse Ox O2 Delivery O2 Flow Rate FiO2 02/18/20 18:30 76 21 40 02/18/20 17:22 71 153/84 02/18/20 17:21 153/84 02/18/20 17:21 153/84 02/18/20 16:00 40 02/18/20 16:00 71 02/18/20 16:00 Mechanical Ventilator Mechanical Ventilator 02/18/20 16:00 98.2 70 22 153/84 (107) 100 02/18/20 14:32 72 24 40 02/18/20 13:33 146/86 02/18/20 13:32 146/86 02/18/20 12:35 69 02/18/20 12:00 40 02/18/20 12:00 98.4 71 26 146/86 (106) 100 02/18/20 12:00 Mechanical Ventilator Mechanical Ventilator 02/18/20 10:38 70 21 40 02/18/20 10:08 98.2 02/18/20 09:38 64 162/76 02/18/20 09:37 64 162/76 02/18/20 09:37 162/76 02/18/20 08:00 40 02/18/20 08:00 98.8 62 21 162/76 (104) 100 02/18/20 08:00 64 02/18/20 08:00 Mechanical Ventilator Mechanical Ventilator 02/18/20 07:12 55 22 40 02/18/20 05:05 151/87 02/18/20 04:00 58 02/18/20 04:00 98.2 62 22 148/83 (104) 100 02/18/20 04:00 Mechanical Ventilator Mechanical Ventilator 02/18/20 04:00 40 02/18/20 02:53 57 21 40 ROS: unchanged for 01/17/20 HEENT: Mechanically Ventilated, Thick Trach secretions RHYTHM: Afib LUNGS: bilateral rhonchi, trach site clean CARDIAC: normal S1 and S2, irregularly irregular, other - no rub ABDOMEN: normal bowel sounds, non tender, soft, G-Tube intact, other - left groin- no bleeding at old cath site EXTREMITIES: normal inspection, trace edema Laboratory Tests Test 02/18/20 02:45 02/18/20 17:56 Sodium Level 136 MMOL/L (136-145) Potassium Level 3.7 MMOL/L (3.5-5.1) Chloride Level 100 MMOL/L (98-107) Carbon Dioxide Level 28 MMOL/L (21-32) Anion Gap 8 mmol/L (5-15) Blood Urea Nitrogen 98 mg/dL (7-18) H Creatinine 4.0 MG/DL (0.55-1.30) H Estimat Glomerular Filtration Rate 12.0 mL/min (>60) Glucose Level 104 MG/DL (74-106) Calcium Level 10.2 MG/DL (8.5-10.1) H Phosphorus Level 3.9 MG/DL (2.5-4.9) Magnesium Level 3.2 MG/DL (1.8-2.4) H Total Bilirubin 0.4 MG/DL (0.2-1.0) Aspartate Amino Transf (AST/SGOT) 19 U/L (15-37) Alanine Aminotransferase (ALT/SGPT) < 6 U/L (12-78) L Alkaline Phosphatase 159 U/L (46-116) H Total Protein 7.0 G/DL (6.4-8.2) Albumin 1.9 G/DL (3.4-5.0) L Globulin 5.1 g/dL Albumin/Globulin Ratio 0.4 (1.0-2.7) L POC Whole Blood Glucose 90 MG/DL (74-106) Assessment/Plan Assessment/Plan Chronic respiratory failure with trach Severe sepsis PAFib now in sinus rhythm Ischemic cardiomyopathy - hx CABG and s/p NSTEMI in Dec 2019. Conduction system disease of the heart Hx of permanent pacemaker explant Acute on chronic systolic and diastolic CHF Pleural effusion Anemia Hypertension/HHD now with controlled BP. ESRD Hypokalemia Avoid beta flori therapy based on historic risk of bradycardia. Anti-failure and anti-anginal regimen with titration Vent support Abx per ID Continuous cardiac monitoring Anti-HTN regimen being titrated as needed. Transfuse PRBC as needed Replace potassium; check Mg++ levels periodicaly. Stable for subacute facility from Cardiovascular standpoint Deni Willams MD Feb 19, 2020 00:26
--- NOTE | 2020-02-19 02:25 | Cardiology Report ---
APPROVED REPORT EKG Measurement Heart [id number] <Conclusion> Normal sinus rhythm Rightward axis Borderline ECG
--- NOTE | 2020-02-20 09:31 | Discharge Summary ---
Discharge Summary Discharge Summary _ DATE OF ADMISSION: 01/15/2020 DATE OF DISCHARGE:02/18/2020 DISCHARGED BY: Dr. Dong REASON FOR ADMISSION: 49 years old female with past medical history of chronic respiratory failure, tracheostomy status, COPD, CABG, thoracic aneurysm dissection, s/p repair, renal failure, decubitus ulcer, dysphagia , feeding by G-tube, was sent from the intermediate [facility] for evaluation. Patient apparently had increased oxygen requirements throughout the day to maintain saturation above 90% . In ED patient was found to be hypoxic . Laboratory work-up revealed leukocytosis WBC 23.8, hemoglobin 7.3,hematocrit 21.7. D-dimer 14.28 Sodium 103 ,potassium 5.4. BUN to 23 ,creatinine 6.7. Lactic acid 0.7. Ferritin 1132, LDH 140 and CRP 21.8. Troponin 0.299, proBNP above 35,000. EKG revealed sinus rhythm, no acute ischemic changes. Chest X-ray revealed tracheostomy in place, no pneumothorax ,sternotomy wires ,atelectasis. Rapid COVID-19 was negative. Stable LFT, but lipase above 2000. Septic work-up initiated. Patient pancultured, started on empiric antibiotic and admitted for further management. CONSULTANTS: procurement clerk Dr. Willams pulmonary Dr. Stephen ID specialist Dr. Pack GI specialist Dr Dutta burlap man Dr. Houston helmet coverer/oncologist Dr. Muhammad surgery [facility] COURSE: Patient admitted direct observational unit. Ventilator support and tracheostomy care provided. Pulmonary toilet initiated. Chest x-ray revealed large left pleural effusion. Patient subsequently undergone ultrasound-guided thoracentesis yielding 1050 mL of bloody pleural fluid. Patient tolerated procedure well. Follow-up sonogram demonstrated marked decrease in pleural fluid with small residual pleural effusion. Thoracic fluid cultutre revealed no evidence of growth. Pathology report revealed no evidence of malignant cells. Venous duplex bilateral lower extremity revealed no evidence of acute DVT. Antibiotic provided as per infectious disease specialist recommendation. Initial blood culture revealed Staph epidermidis. Repeated blood culture showed staph Auricularis. Sputum culture revealed Pseudomonas MDR. Stool for C. difficile was negative. Patient completed antibiotic as per ID specialist recommendation Patient initially was not stable for GI procedures. Patient was transfused during the stay total of 8 units of packed red blood cells. Patient was continued with Epogen. GI specialist closely followed. Stool for occult blood was positive. Hemoglobin and hematocrit were stabilized. Prior to discharge hemoglobin 8.4 hematocrit 25.8. Elevator Installer Apprentice closely followed . Initially temporal left femoral hemodialysis catheter was inserted by surgeon , and patient started on emergent dialysis. Dialysis provided per burlap man recommendations with close monitoring of volumes , renal parameters and electrolytes. Electrolytes corrected as needed. Patient noted to have a high calcium. Patient received Aredia. Patient undergone placement of Perma-catheter on 02/05. Prior to discharge BUN 98 , creatinine 4.0. Sodium 136, Elevator Installer Apprentice recommended hold off dialysis at this time , however Perma-cath should not be discontinued , as patient will most likely require hemodialysis soon . Aspiration precaution maintained. G-tube feeding continued. Noted some G-tube leak. Topical zinc oxide provided. Antiemetic were on board as needed . Patient was able to tolerate tube feedings. Bowel regimen instituted. CT scan of the abdomen and pelvis revealed ascites ,bilateral pleural effusion, basilar pulmonary atelectatic changes and consolidation. Gastrostomy. Atrophic left kidney with nephroureteral stent. Possible retrococcygeal decubitus changes. Right hip intertrochanteric fracture, previously described. Left femoral dialysis. Nonspecific right lobe liver lesion unchanged. Lipase was followed and remained persistently elevated , prior to discharge 1440 , no abdominal pain. Hepatitis panel negative. LFT remained stable. Tube feeding formula and protein supplements provided as per registered dietitian recommendation. GI specialist recommended to hold on GI procedure at this time, given that hemoglobin and hematocrit stabilized. Repeat stool for OB at the facility and monitor closely. Supportive care provided . Troponin minimally elevated, likely due to acute renal failure on presentation. EKG was nonischemic. Patient did not complain of any chest pain. Patient continued on beta blockage. Patient demonstrated paroxysmal atrial fibrillation, spontaneously converted to sinus rhythm. Patient with ischemic cardiomyopathy, history of CABG , status post NSTEMI , December 2019. Psychiatric Technician closely followed. Anti-failure, antianginal and antihypertensive regimen titrated and optimized. Patient was on continuous cardiac monitoring . Patient had a history of pacemaker pocket infection and abscess secondary to staph epidermidis , and prior undergone removal of permanent pacemaker and treatment of IV vancomycin x 6 weeks. Prior echocardiogram revealed no evidence of vegetation. Wound care for present on admission decubitus ulcer provided as per surgeon recommendation . Continue wound care at the facility. Patient clinically stabilized and was ready for transfer to intermediate facility for continuation of care. FINAL DIAGNOSES: Sepsis Bacteremia, possible contamination Pneumonia Acute on chronic renal failure, requiring dialysis Hyponatremia Elevated lipase, possible pancreatitis Elevated troponin Severe acute anemia, requiring multiple blood transfusion Chronic respiratory failure, ventilator dependent with tracheostomy status Large left pleural effusion Status post thoracentesis Anemia of chronic disease Acute on chronic systolic and diastolic CHF Conduction system disease of the heart History of permanent pacemaker explantation History of CABG and NSTEMI Ischemic cardiomyopathy Paroxysmal atrial fibrillation Hypertensive heart disease Dysphagia, feeding by G-tube History of thoracic aortic dissection status post repair 2018 DISCHARGE MEDICATIONS: See Medication Reconciliation list. DISCHARGE INSTRUCTIONS: Patient was discharged to the intermediate facility. Follow up with medical doctor at the facility. I have been assigned to dictate discharge summary for this account. I was not involved in the patient's management. Yara Castro NP Feb 20, 2020 09:31
--- NOTE | 2020-02-20 10:21 | NUR ---
INSURANCE DC INSTRUCTIONS/DC SUMMARY FAXEDTO [facility] [phone]
== END 2020-02-18 20:20 | DRG 720 ==
LOC: EDBD 17:38 → EMR 17:57 → ICU 18:08 → EDBEDREQ 20:22 → 2W 01-18 10:22
DX: A41.9 Sepsis, unspecified organism (principal); K85.90 Acute pancreatitis without necrosis or infection, unspecified; E87.1 Hypo-osmolality and hyponatremia; E87.6 Hypokalemia; N17.9 Acute kidney failure, unspecified; I50.43 Acute on chronic combined systolic (congestive) and diastolic (congestive) heart failure; R65.20 Severe sepsis without septic shock; I25.5 Ischemic cardiomyopathy; I13.2 Hypertensive heart and chronic kidney disease with heart failure and with stage 5 chronic kidney disease, or end stage renal disease; N18.6 End stage renal disease; Z99.2 Dependence on renal dialysis; J96.11 Chronic respiratory failure with hypoxia; Z99.11 Dependence on respirator [ventilator] status; J44.0 Chronic obstructive pulmonary disease with (acute) lower respiratory infection; J18.9 Pneumonia, unspecified organism; Z93.0 Tracheostomy status; Z93.1 Gastrostomy status; I25.10 Atherosclerotic heart disease of native coronary artery without angina pectoris; Z95.1 Presence of aortocoronary bypass graft; D68.9 Coagulation defect, unspecified; R13.10 Dysphagia, unspecified; D63.1 Anemia in chronic kidney disease; I48.0 Paroxysmal atrial fibrillation; I48.92 Unspecified atrial flutter; G20 Parkinson's disease; F41.9 Anxiety disorder, unspecified; F20.9 Schizophrenia, unspecified; K29.70 Gastritis, unspecified, without bleeding; Z20.822 Contact with and (suspected) exposure to COVID-19
CPT/HCPCS: 36415; 36558; 71045; 74176; 76000; 76942; 80048; 80053; 80061; 80076; 80202; 82150; 82270; 82306; 82550; 82553; 82607; 82728; 82746; 82803; 82962; 83540; 83550; 83605; 83615; 83690; 83735; 83880; 83930; 83935; 84100; 84300; 84443; 84484; 84550; 85007; 85025; 85379; 85610; 85730; 86140; 86706; 86707; 86710; 86803; 86850; 86900; 86901; 86920; 87040; 87070; 87081; 87181; 87205; 87324; 88104; 93005; 93970; 94002; 94003; 96361; 96365; 96367; 96375; 99285; J0282; J2430; J2765; J3430; J7030; J8499

== ENCOUNTER 2020-03-02 09:23 | Inpatient (IN) | payer MEDICAID ==
[~2020-03-02] VITALS: Ht 160 cm; Wt 58.1 kg
[~2020-03-02 09:23] MED LIST changes: +CHLORHEXIDINE473 ML MM; +DOCUSATE SODIU100 MG GT; +LISINOPRIL20 MG GT; +METOCLOPRAMIDE H5 M1 ORAL; +NOVOLIN R100 UNIT/1 SUBQ; -PROVENTIL HFA6.7 G1 IH; +PROVENTIL HFA6.7 G1 TRANSTR092; +RETACRIT10000 UNIT SQ; +SILVADENE20 GM TP; +TRAMADOL HCL GT; +TRAMADOL HCL50 MG GT; +UTI-STAT L3875 MG/31 GT; +VITAMIN D3125 MCG GT
--- NOTE | 2020-03-02 09:32 | Emergency Room Report ---
History of Present Illness General Chief Complaint: Altered Mental Status Source: EMS Present Illness HPI Patient is a 49-year-old female sent in from [facility] after increased altered mental status. Patient recent hospitalization at this hospital. She was noted to be hypotensive by EMS. She is noted to have some diarrheal stool. History is markedly limited by patient's mental status and poor historian. She is chronically trach and G-tube dependent. Primary care physician is Dr. Lucas Dong. 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 - COVID-19 Screening: Negative COVID-19 COVID-19 Testing Source: SNF Patient History Past Medical History: see triage record Reviewed Nursing Documentation: PMH: Agreed; PSxH: Agreed Nursing Documentation-PMH Hx Hypertension: Yes Hx Pacemaker: Yes - Left upper chest Hx Diabetes: Yes Hx Cancer: No Hx Gastrointestinal Problems: Yes - gerd, gastrostomy Hx Neurological Problems: Yes - dysphagia, Hx Cerebrovascular Accident: No Hx Transient Ischemic Attacks: No Hx Dementia: No Hx Alzheimer's Disease: No Hx Parkinson's Disease: Yes Hx Meningitis: No Hx Encephalitis: No Hx Dysphasia: Yes Review of Systems All Other Systems: negative except mentioned in HPI Physical Exam Vital Signs Date Time Temp Pulse Resp B/P (MAP) Pulse Ox O2 Delivery O2 Flow Rate FiO2 03/02/20 09:25 98.8 76 19 80/4 (29) 100 Mechanical Ventilator Sp02 EP Interpretation: reviewed General Appearance: alert, Chronically Ill Head: atraumatic ENT: normal ENT inspection Neck: normal inspection, no bony tend, limited range of motion, tracheotomy Respiratory: no respiratory distress, no retraction Cardiovascular #1: tachycardia, edema Gastrointestinal: non tender, soft, no guarding, tenderness Genitourinary: no CVA tenderness Musculoskeletal: other - Slight contractions to lower extremities. Neurologic: other - Nonverbal, tracheotomy dependent, minimal response Procedures Critical Care Time Critical Care Time Patient had a critical medical condition which untreated could potentially result in life or limb threatening injury. Total critical care time excluding procedures approximately 45 minutes. Medical Decision Making Diagnostic Impression: Primary Impression: Severe anemia Additional Impressions: Ventilator dependence Feeding by G-tube Sepsis ER Course Present for increased altered mental status. Differential diagnosis include was not limited to anemia, uremia, sepsis among others. Because of complexity of patient's case laboratory tests and imaging studies were ordered. Patient had diarrheal stools with some recent hospitalization. She had recent blood transfusion. Patient was typed and crossed for blood. Patient did have significant anemia and hemoglobin less than 2. Patient will be transfused blood. She was started on IV fluids. Patient empirically given IV antibiotics. EKG interpreted by me showed sinus tachycardia without evidence of acute ischemic changes. Patient's laboratory testing Showed significantly diminished hemoglobin without significant ischemic findings or hypotension. Dr. Lucas Dong was contacted for inpatient management due to primary physician. Labs Test 03/02/20 10:00 03/02/20 10:40 Urine Color Pale yellow Urine Appearance Cloudy Urine pH 8 (4.5-8.0) Urine Specific [place] 1.010 (1.005-1.035) Urine Protein 3+ (NEGATIVE) Urine Glucose (UA) Negative (NEGATIVE) Urine Ketones 1+ (NEGATIVE) Urine Blood 5+ (NEGATIVE) Urine Nitrite Negative (NEGATIVE) Urine Bilirubin Negative (NEGATIVE) Urine Urobilinogen Normal MG/DL (0.0-1.0) Urine Leukocyte Esterase 3+ (NEGATIVE) Urine RBC 15-20 /HPF (0 - 2) Urine WBC 40-60 /HPF (0 - 2) Urine Squamous Epithelial Cells Few /LPF (NONE/OCC) Urine Calcium Oxalate Crystals Occasional /LPF (NONE) Urine Amorphous Sediment Many /LPF (NONE) Urine Bacteria Many /HPF (NONE) Stool Occult Blood Positive (NEGATIVE) Arterial Blood pH 7.119 (7.350-7.450) Arterial Blood Partial Pressure CO2 44.4 mmHg (35.0-45.0) Arterial Blood Partial Pressure O2 37.7 mmHg (75.0-100.0) Arterial Blood HCO3 14.1 mmol/L (22.0-26.0) Arterial Blood Oxygen Saturation 49.9 % (95-100) Arterial Blood Base Excess -13.4 (-2-2) Rojas Test Positive White Blood Count 30.6 K/UL (4.8-10.8) Red Blood Count 0.69 M/UL (4.20-5.40) Hemoglobin 1.9 G/DL (12.0-16.0) Hematocrit 6.3 % (37.0-47.0) Mean Corpuscular Volume 91 FL (80-99) Mean Corpuscular Hemoglobin 28.0 PG (27.0-31.0) Mean Corpuscular Hemoglobin Concent 30.7 G/DL (32.0-36.0) Red Cell Distribution Width 18.0 % (11.6-14.8) Platelet Count 252 K/UL (150-450) Mean Platelet Volume 6.1 FL (6.5-10.1) Neutrophils (%) (Auto) % (45.0-75.0) Lymphocytes (%) (Auto) % (20.0-45.0) Monocytes (%) (Auto) % (1.0-10.0) Eosinophils (%) (Auto) % (0.0-3.0) Basophils (%) (Auto) % (0.0-2.0) Last Vital Signs Date Time Temp Pulse Resp B/P (MAP) Pulse Ox O2 Delivery O2 Flow Rate FiO2 03/02/20 09:25 98.8 76 19 80/4 (29) 100 Mechanical Ventilator Status: unchanged Disposition: ADMITTED INPATIENT Condition: Critical Torito Park MD Mar 02, 2020 09:32
--- NOTE | 2020-03-02 09:50 | NUR ---
ED Nurse Note:pt. was BIBA from SNF with ALOC and hypotension, pt. was placed on isolation and lens edger, blood and stool/urine /blood cultures sent covid swab done, pt. was cleaned from [facility] and given IV fluids and meds, she came with sacral and right heel ulcers
--- NOTE | 2020-03-02 09:51 | NUR ---
ED Nurse Note:pt. has only sacral ulcer, no wounds on her heels, correction note
[2020-03-02 10:08] LABS: APPEARANCE,URINE CLOUDY; BILIRUBIN, URINE NEGATIVE (NEGATIVE); GLUCOSE, URINE (UA) NEGATIVE (NEGATIVE); KETONES,URINE 1+ (NEGATIVE); LEUKOCYTE ESTERASE ,URINE 3+ (NEGATIVE); NITRITE,URINE NEGATIVE (NEGATIVE); PH,URINE 8 (4.5-8.0); PROTEIN,URINE 3+ (NEGATIVE); UROBILINOGEN,URINE NORMAL MG/DL (0.0-1.0)
[2020-03-02 10:11] VITALS: BP 90/61
[2020-03-02] MEDS ORDERED: AMANTADINE100 M2 GT (10:13)
[2020-03-02] MEDS ORDERED: AMANTADINE100 MG ORAL (10:13)
[2020-03-02] MEDS ORDERED: HYDRALAZINE HCL25 M1 GT (10:13)
[2020-03-02] MEDS ORDERED: ISOSORBIDE DINIT5 MG GT (10:13)
[2020-03-02] MEDS ORDERED: AMLODIPINE BESYL5 MG GT (10:13)
[2020-03-02 10:19] LABS: COLOR,URINE PALE YELLOW
[2020-03-02 10:43] LABS: HEMATOCRIT 6.3 % (37.0-47.0); MEAN CORPUSCULAR VOLUME 91 FL (80-99); PLATELET COUNT 252 K/UL (150-450); RED BLOOD COUNT 0.69 M/UL (4.20-5.40)
[2020-03-02 11:00] LABS: HEMOGLOBIN 1.9 G/DL (12.0-16.0); WHITE BLOOD COUNT 30.6 K/UL (4.8-10.8)
--- NOTE | 2020-03-02 11:09 | NUR ---
ED Nurse Note: CALLED ALAN CULLEN FOR TELEPHONE CONSENT FOR BLOOD TRANSFUSION. EXPLAINED THE RISKS AND BENEFITS OF THE TRANSFUSION. WITNESSED BY ERASMO BAIN
[2020-03-02 11:11] LABS: ALANINE AMINOTRANSFERASE 23 U/L (12-78); ALBUMIN 1.6 G/DL (3.4-5.0); ALBUMIN/GLOBULIN RATIO 0.4 (1.0-2.7); ALKALINE PHOSPHATASE 105 U/L (46-116); ANION GAP 20 mmol/L (5-15); ASPARTATE AMINO TRANSFERASE 56 U/L (15-37); BILIRUBIN,TOTAL 0.3 MG/DL (0.2-1.0); CALCIUM 8.8 MG/DL (8.5-10.1); CARBON DIOXIDE 13 MMOL/L (21-32); CHLORIDE 83 MMOL/L (98-107); CKMB 5.2 NG/ML (0.0-3.6); CREATINE KINASE 86 U/L (26-308); CREATININE 4.6 MG/DL (0.55-1.30); POTASSIUM 5.5 MMOL/L (3.5-5.1)
[2020-03-02 11:15] LABS: SODIUM 116 MMOL/L (136-145)
[2020-03-02 11:20] LABS: BLOOD UREA NITROGEN 217 mg/dL (7-18)
--- NOTE | 2020-03-02 11:24 | NUR ---
ED Nurse Note:blood was resend, consent for blood trtansfusion signed
[2020-03-02 11:28] VITALS: BP 80/34
[2020-03-02 11:38] LABS: INR 1.4 (0.9-1.1)
--- NOTE | 2020-03-02 11:45 | NUR ---
ED Nurse Note:blood tarnsfusion started, pt. tolerasting well
[2020-03-02] MEDS ORDERED: Meropenem 1 GM in NS 55 ML IVPB ONE (12:15)
[2020-03-02] MEDS ORDERED: Vancomycin 1 GM in NS 275 ML IVPB ONE (12:15)
--- NOTE | 2020-03-02 12:30 | Consultation ---
History of Present Illness General Date patient seen: Mar 02, 2020 Reason for Hospitalization: Altered Mental Status Present Illness HPI This a 49 year-old female well known to me, with a history of schizophrenia, COPD, respiratory failure status post tracheostomy. She presents with chief complaint of shortness of breath and ams. I have seen her multiple times in the past, here from [facility]. She then complained of feeling short of breath and chest pain. assisted called 911. [employer] gave her aspirin and nitroglycerin. No relief. Patient denies any trauma. No seizure history. Nothing made it better. Nothing made it worse. Denies any other complaint. History limited because patient has tracheostomy. Hgb 1.5 this am, transfused 2 units prbc with rn. elevated lipase. ?pna. trach stable. surgery called to evaluate Allergies: Coded Allergies: No Known Allergies (Unverified , 10/10/17) COVID-19 Screening Contact w/high risk pt: No Experienced COVID-19 symptoms?: No Medication History Scheduled Albuterol Sulfate (Proventil Hfa), 2 PUFF [id number] Q6HR, (Reported) Amino Acids/Protein Hydrolys (Pro-Stat Liquid), 30 ML GT DAILY, (Reported) Ascorbic Acid* (Vitamin C*), 500 MG GT DAILY, (Reported) Atorvastatin Calcium* (Lipitor*), 10 MG GT BEDTIME, (Reported) Chlorhexidine Gluconate (Chlorhexidine Gluconate), 15 ML MM BID, (Reported) Cholecalciferol (Vitamin D3) (Vitamin D3), 125 MCG GT DAILY, (Reported) Clonazepam* (Klonopin*), 1 MG GT Q8HR, (Reported) Collagenase Clostridium Hist. (Collagenase), Unknown Dose TP DAILY, (Reported) Cran/Vitc/Mannose/Inulin/Brom (Uti-Stat Liquid), 30 ML GT DAILY, (Reported) Dextrose (Dextrose 5%-Water IV Soln), 1,000 ML IV Q10HR, (Reported) Diltiazem Hcl* (Cardizem*), 30 MG GT EVERY 8 HOURS, (Reported) Docusate Sodium* (Docusate Sodium*), 100 MG GT DAILY, (Reported) Epoetin Gelacio-Epbx (Retacrit), 10,000 UNIT SQ 3XW, (Reported) Gemfibrozil* (Lopid*), 600 MG GT TWICE A DAY, (Reported) Insulin Aspart (Novolog Flexpen), 0 SUBQ Q6HR, (Reported) Lisinopril (Lisinopril*), 20 MG GT DAILY, (Reported) Metoclopramide Hcl* (Metoclopramide Hcl*), 5 ML GT EVERY 6 HOURS, (Reported) Minoxidil* (Loniten*), 2.5 MG GT EVERY 8 HOURS, (Reported) Polyethylene Glycol 3350* (Miralax*), 17 GM GT QHS, (Reported) Triamcinolone Acetonide (Triamcinolone Acetonide 0.5% Cream*), GM TP DAILY, (Reported) Vitamin B Cmplx/Vit C/Folic AC (Nephro-Cyril Tablet), 1 TAB GT DAILY, (Reported) Zinc Sulfate (Zinc Sulfate*), 220 MG GT DAILY, (Reported) Scheduled PRN Acetaminophen (Tylenol), 650 MG GT Q4HR PRN for MILD PAIN/TEMP>101, (Reported) Ibuprofen* (Motrin*), 600 MG GT Q6HR PRN for Moderate Pain (Pain Scale 4-6), (Reported) Ipratropium [place] (Atrovent Hfa), 2 PUFFS IH Q6HR PRN for SOB/WHEEZING, (Reported) Magnesium Hydroxide* (Milk Of Magnesia*), 30 ML GT QHS PRN for Constipation, (Reported) Tramadol HCl (Tramadol HCl), 100 MG GT Q8HR PRN for Severe Pain (Pain Scale 7- 10), (Reported) Discontinued Medications Amantadine Hcl* (Symmetrel*), 100 MG ORAL TWICE A DAY, (Reported) Discontinued Reason: Therapy completed Amantadine Hcl* (Amantadine*), 100 MG GT TWICE A DAY, (Reported) Discontinued Reason: Therapy completed Amlodipine Besylate* (Amlodipine Besylate*), 5 MG GT BID, (Reported) Discontinued Reason: Therapy completed Hydralazine Hcl* (Hydralazine Hcl*), 25 MG GT EVERY 6 HOURS, (Reported) Discontinued Reason: Therapy completed Isosorbide Dinitrate (Isosorbide Dinitrate*), 5 MG GT, (Reported) Discontinued Reason: Therapy completed Metolazone (Metolazone), 2.5 MG GT BID, (Reported) Discontinued Reason: Therapy completed Silver Sulfadiazine (Silvadene), 20 GM TP DAILY, (Reported) Discontinued Reason: Therapy completed Patient History Limited by: medical condition History Provided By: Medical Record, PMD Healthcare decision maker Resuscitation status Advanced Directive on File Past Medical/Surgical History Past Medical/Surgical History: (1) Ventilator dependence (2) Severe anemia (3) Feeding by G-tube (4) Chronic respiratory failure (5) Dehydration (6) Hypokalemia (7) Acidosis (8) Anemia (9) Ascites (10) Bacteremia (11) Depression (12) Hypernatremia (13) Hyponatremia (14) Hyponatremia (15) Pancreatitis (16) Pleural effusion (17) Proteinuria (18) Renal failure (19) Respiratory failure (20) Schizophrenia (21) Electrolyte imbalance (22) Hypoxia (23) Sepsis (24) UTI (urinary tract infection) (25) Pneumonia (26) ARF (acute renal failure) (27) Pacemaker (28) ACS (acute coronary syndrome) (29) Elevated troponin (30) NSTEMI (non-ST elevated myocardial infarction) (31) Aortic dissection, thoracic (32) Tracheostomy in place (33) Respiratory failure, acute and chronic (34) JAVIER (acute kidney injury) (35) JAVIER (acute kidney injury) (36) Abrasion of lip, initial encounter (37) COPD with exacerbation (38) Elevated alkaline phosphatase level (39) Renal failure (ARF), acute on chronic (40) Acute encephalopathy (41) HCAP (healthcare-associated pneumonia) (42) Elevated lipase (43) Sacral decubitus ulcer, stage IV (44) GT CLOGGED Review of Systems Review of Symptoms General ROS: no weight loss or fever Psychological ROS: no depression or mood changes, no memory loss Ophthalmic ROS: no visual changes or eye irritation ENT ROS: no nasal congestion, hearing loss, dizziness Allergy and Immunology ROS: no allergic symptoms or urticaria Hematological and Lymphatic ROS: no swollen glands, unusual bleeding or bruising Endocrine ROS: no polyuria, polydipsia, weight changes, temperature intolerance Respiratory ROS: no cough, shortness of breath, or wheezing Cardiovascular ROS: no chest pain or dyspnea on exertion Gastrointestinal ROS: denies abdominal pain, bright red blood in stool. Musculoskeletal ROS: no myalgias or arthralgias Neurological ROS: no TIA or stroke symptoms Dermatological ROS: no new or changing skin lesions, rashes or pruritis Physical Exam Physical Exam General appearance: alert, mild distress, appears stated age Head: Normocephalic, without obvious abnormality, atraumatic Eyes: conjunctivae/corneas clear. PERRL, EOM's intact. Fundi benign Throat: Lips, mucosa, and tongue normal. Teeth and gums normal Neck: supple, symmetrical, trachea midline, no adenopathy, thyroid: not enlarged, symmetric, no tenderness/mass/nodules, no carotid bruit and no JVD trach Lungs: dec to auscultation bilaterally Heart: regular rate and rhythm, S1, S2 normal, no murmur, click, rub or gallop Abdomen: soft, non-tender. Bowel sounds normal. No masses, no organomegaly Extremities: extremities normal, atraumatic, no cyanosis or edema Pulses: 2+ and symmetric Skin: Skin color, texture, turgor normal. No rashes or lesions Neurologic: Grossly normal Last 24 Hour Vital Signs Date Time Temp Pulse Resp B/P (MAP) Pulse Ox O2 Delivery O2 Flow Rate FiO2 03/02/20 11:28 98.8 73 19 80/34 100 Mechanical Ventilator 03/02/20 11:04 71 19 100 03/02/20 10:15 71 19 Mechanical Ventilator 03/02/20 10:11 98.8 71 19 90/61 100 Mechanical Ventilator 03/02/20 09:25 98.8 76 19 80/4 (29) 100 Mechanical Ventilator Laboratory Tests Test 03/02/20 10:00 03/02/20 10:40 03/02/20 10:50 Urine Color Pale yellow Urine Appearance Cloudy Urine pH 8 (4.5-8.0) Urine Specific [place] 1.010 (1.005-1.035) Urine Protein 3+ (NEGATIVE) H Urine Glucose (UA) Negative (NEGATIVE) Urine Ketones 1+ (NEGATIVE) H Urine Blood 5+ (NEGATIVE) H Urine Nitrite Negative (NEGATIVE) Urine Bilirubin Negative (NEGATIVE) Urine Urobilinogen Normal MG/DL (0.0-1.0) Urine Leukocyte Esterase 3+ (NEGATIVE) H Urine RBC 15-20 /HPF (0 - 2) H Urine WBC 40-60 /HPF (0 - 2) H Urine Squamous Epithelial Cells Few /LPF (NONE/OCC) Urine Calcium Oxalate Crystals Occasional /LPF (NONE) Urine Amorphous Sediment Many /LPF (NONE) H Urine Bacteria Many /HPF (NONE) H Stool Occult Blood Positive (NEGATIVE) Arterial Blood pH 7.119 (7.350-7.450) Arterial Blood Partial Pressure CO2 44.4 mmHg (35.0-45.0) Arterial Blood Partial Pressure O2 37.7 mmHg (75.0-100.0) Arterial Blood HCO3 14.1 mmol/L (22.0-26.0) *L Arterial Blood Oxygen Saturation 49.9 % (95-100) *L Arterial Blood Base Excess -13.4 (-2-2) *L Rojas Test Positive White Blood Count 30.6 K/UL (4.8-10.8) *H Red Blood Count 0.69 M/UL (4.20-5.40) L Hemoglobin 1.9 G/DL (12.0-16.0) *L Hematocrit 6.3 % (37.0-47.0) L Mean Corpuscular Volume 91 FL (80-99) Mean Corpuscular Hemoglobin 28.0 PG (27.0-31.0) Mean Corpuscular Hemoglobin Concent 30.7 G/DL (32.0-36.0) L Red Cell Distribution Width 18.0 % (11.6-14.8) H Platelet Count 252 K/UL (150-450) Mean Platelet Volume 6.1 FL (6.5-10.1) L Neutrophils (%) (Auto) % (45.0-75.0) Lymphocytes (%) (Auto) % (20.0-45.0) Monocytes (%) (Auto) % (1.0-10.0) Eosinophils (%) (Auto) % (0.0-3.0) Basophils (%) (Auto) % (0.0-2.0) Differential Total Cells Counted 100 Neutrophils % (Manual) 88 % (45-75) H Lymphocytes % (Manual) 6 % (20-45) L Monocytes % (Manual) 6 % (1-10) Eosinophils % (Manual) 0 % (0-3) Basophils % (Manual) 0 % (0-2) Band Neutrophils 0 % (0-8) Platelet Estimate Adequate Platelet Morphology Normal Hypochromasia 3+ Anisocytosis 1+ Sodium Level 116 MMOL/L (136-145) *L Potassium Level 5.5 MMOL/L (3.5-5.1) H Chloride Level 83 MMOL/L (98-107) L Carbon Dioxide Level 13 MMOL/L (21-32) L Anion Gap 20 mmol/L (5-15) H Blood Urea Nitrogen 217 mg/dL (7-18) H Creatinine 4.6 MG/DL (0.55-1.30) H Estimat Glomerular Filtration Rate 10.2 mL/min (>60) Glucose Level 107 MG/DL (74-106) H Calcium Level 8.8 MG/DL (8.5-10.1) Phosphorus Level 5.0 MG/DL (2.5-4.9) H Magnesium Level 3.3 MG/DL (1.8-2.4) H Total Bilirubin 0.3 MG/DL (0.2-1.0) Aspartate Amino Transf (AST/SGOT) 56 U/L (15-37) H Alanine Aminotransferase (ALT/SGPT) 23 U/L (12-78) Alkaline Phosphatase 105 U/L (46-116) Total Creatine Kinase 86 U/L (26-308) Creatine Kinase MB 5.2 NG/ML (0.0-3.6) H Creatine Kinase MB Relative Index 6.0 Troponin I 0.086 ng/mL (0.000-0.056) Pro-B-Type Natriuretic Peptide > 19699 pg/mL (0-125) H Total Protein 5.4 G/DL (6.4-8.2) L Albumin 1.6 G/DL (3.4-5.0) L Globulin 3.8 g/dL Albumin/Globulin Ratio 0.4 (1.0-2.7) L Lipase 266 U/L (73-393) Prothrombin Time 15.0 SEC (9.30-11.50) H Prothromb Time International Ratio 1.4 (0.9-1.1) H Activated Partial Thromboplast Time 26 SEC (23-33) Lactic Acid Level 4.50 mmol/L (0.4-2.0) H Microbiology Date/Time Source Procedure Growth Status 03/02/20 10:00 Nasopharynx SARS-CoV-2 RdRp Gene Assay - Final Complete Height (Feet): 5 Height (Inches): 3.00 Weight (Pounds): 140 Medications Current Medications Medications (Trade) Dose Ordered Sig/Penny Route PRN Reason Start Time Stop Time Status Last Admin Dose Admin Meropenem 1 gm/ Sodium Chloride 55 ml @ 110 mls/hr ONCE ONCE IVPB 03/02/20 12:15 03/02/20 12:44 Vancomycin HCl 1 gm/Sodium Chloride 275 ml @ 183.708 mls/hr ONCE ONCE IVPB 03/02/20 12:15 03/02/20 13:44 Assessment/Plan Problem List: (1) Pancreatitis ICD Codes: K85.90 - Acute pancreatitis without necrosis or infection, unspecified SNOMED: 32199789 (2) Elevated troponin ICD Codes: R77.8 - Other specified abnormalities of plasma proteins SNOMED: 714185322, 297329071, 971151468 (3) Anemia ICD Codes: D64.9 - Anemia, unspecified SNOMED: 139903097 (4) Renal failure ICD Codes: N19 - Unspecified kidney failure SNOMED: 91733495, 554946166 (5) ARF (acute renal failure) ICD Codes: N17.9 - Acute kidney failure, unspecified SNOMED: 30204746, 162871744 (6) Pacemaker ICD Codes: Z95.0 - Presence of cardiac pacemaker SNOMED: 780122997 (7) Sepsis ICD Codes: A41.9 - Sepsis, unspecified organism SNOMED: 47852272 (8) Hyponatremia ICD Codes: E87.1 - Hypo-osmolality and hyponatremia SNOMED: 52852129 (9) Chronic respiratory failure ICD Codes: J96.10 - Chronic respiratory failure, unspecified whether with hypoxia or hypercapnia SNOMED: 20479171 (10) Dehydration ICD Codes: E86.0 - Dehydration SNOMED: 49064873 (11) Hypokalemia ICD Codes: E87.6 - Hypokalemia SNOMED: 54012549 (12) Acidosis ICD Codes: E87.2 - Acidosis SNOMED: 09585723, 287482109 (13) Ascites ICD Codes: R18.8 - Other ascites SNOMED: 010146665 (14) Bacteremia ICD Codes: R78.81 - Bacteremia SNOMED: 0884335 (15) Depression ICD Codes: F32.9 - Major depressive disorder, single episode, unspecified SNOMED: 90488353, 490299181 (16) Hypernatremia ICD Codes: E87.0 - Hyperosmolality and hypernatremia SNOMED: 568472930 (17) Hyponatremia ICD Codes: E87.1 - Hypo-osmolality and hyponatremia SNOMED: 35773070 (18) Pleural effusion ICD Codes: J90 - Pleural effusion, not elsewhere classified SNOMED: 58543607 (19) Proteinuria ICD Codes: R80.9 - Proteinuria, unspecified SNOMED: 18803427, 919940844 (20) Respiratory failure ICD Codes: J96.90 - Respiratory failure, unspecified, unspecified whether with hypoxia or hypercapnia SNOMED: 443956552, 136772172 (21) Schizophrenia ICD Codes: F20.9 - Schizophrenia, unspecified SNOMED: 69415442, 269845982 (22) Electrolyte imbalance ICD Codes: E87.8 - Other disorders of electrolyte and fluid balance, not elsewhere classified SNOMED: 449248760 (23) Hypoxia ICD Codes: R09.02 - Hypoxemia SNOMED: 642234501, 927919850 (24) UTI (urinary tract infection) ICD Codes: N39.0 - Urinary tract infection, site not specified SNOMED: 04382815, 902043823 (25) Pneumonia ICD Codes: J18.9 - Pneumonia, unspecified organism SNOMED: 998258390, 900606429 (26) ACS (acute coronary syndrome) ICD Codes: I24.9 - Acute ischemic heart disease, unspecified SNOMED: 385310874, 474077767 (27) NSTEMI (non-ST elevated myocardial infarction) ICD Codes: I21.4 - Non-ST elevation (NSTEMI) myocardial infarction SNOMED: 08942472 (28) Aortic dissection, thoracic ICD Codes: I71.01 - Dissection of thoracic aorta SNOMED: 023517327 (29) Tracheostomy in place ICD Codes: Z93.0 - Tracheostomy status SNOMED: 870261459 (30) Respiratory failure, acute and chronic ICD Codes: J96.20 - Acute and chronic respiratory failure, unspecified whether with hypoxia or hypercapnia SNOMED: 82164106, 721029086 (31) JAVIER (acute kidney injury) ICD Codes: N17.9 - Acute kidney failure, unspecified SNOMED: 55263559 (32) JAVIER (acute kidney injury) ICD Codes: N17.9 - Acute kidney failure, unspecified SNOMED: 8332085, 07869759 (33) Abrasion of lip, initial encounter ICD Codes: S00.511A - Abrasion of lip, initial encounter SNOMED: 935038748, 53610816 (34) COPD with exacerbation ICD Codes: J44.1 - Chronic obstructive pulmonary disease with (acute) exacerbation SNOMED: 133659098, 44670166 (35) Elevated alkaline phosphatase level ICD Codes: R74.8 - Abnormal levels of other serum enzymes SNOMED: 230991479 (36) Renal failure (ARF), acute on chronic ICD Codes: N17.9 - Acute kidney failure, unspecified; N18.9 - Chronic kidney disease, unspecified SNOMED: 034189428 (37) Acute encephalopathy ICD Codes: G93.40 - Encephalopathy, unspecified SNOMED: 73264114, 772035605 (38) HCAP (healthcare-associated pneumonia) ICD Codes: J18.9 - Pneumonia, unspecified organism SNOMED: 435510471, 714444722 (39) Elevated lipase ICD Codes: R74.8 - Abnormal levels of other serum enzymes SNOMED: 126832904 (40) Sacral decubitus ulcer, stage IV ICD Codes: L89.154 - Pressure ulcer of sacral region, stage 4 SNOMED: 967195543, 307392445 (41) GT CLOGGED (42) Ventilator dependence ICD Codes: Z99.11 - Dependence on respirator [ventilator] status SNOMED: 946368519 (43) Severe anemia ICD Codes: D64.9 - Anemia, unspecified SNOMED: 923944044 (44) Feeding by G-tube ICD Codes: Z93.1 - Gastrostomy status SNOMED: 017246378, 921272252 Assessment/Plan: leukocytosis anemia on HD renal insufficiency wounds addressed pancreatitis cont diet as tolerating trend labs lf'ts okay bleeding from permacath site suture used and hemostasis obtained plan removal of fem line if stable tomorrow pt presented on admission with Tracheostomy ,GT and Multiple Pressure Injuries. Skin assessment of skin under tracheal collar without evidence of skin breakdown. Peristomal GT site excoriated.Moderate amt of dark red sanguineous exudate. Full Thickness Sacral Pressure Injury with undermined borders (L)9 cm x (W)12cm x (D)1.8cm,Undermining clockwise8-9 by 2.2cm @1o'clock,undermining clockwise 1-4 by 1.9 @ 9'oclock Scattered necrotic tissue within wound bed. Borders are loose and necrotic with marginal erythema to outer perimeter of wound. NO elevation in skin temp noted periwound. Wound is malodorous. Small amt Brown exudate noted. Resolving Pressure Injury L Ischium(L)1.5cm x (W)1.5cm. Base of wound is 80% pink epithelial with an area that is moist and pink. NO odor or exudate noted. Bilat foot-drop noted. L Heel is boggy with non-blanchable erythema(L)4cm x (W)4cm. R heel is boggy with non-Blanchable erythema(L)5cm x (W)6cm. Tx.Plan: Cleanse sacral wound with Dakin's 0.125% annie. Loosely pack with Dakin's moistened Kerlix(Attention to undermined borders). Apply Moisture Barrier Paste periwound. Cover with Optifoam drsg. Change Daily and PRN. Apply Cavilon Skin Barrier to R and L Hels. Cover each heel with Optifoam drsg. Change every 7 days and prn. Reposition at least every 2hours or as tolerated. Off-load heels with Pillow. APM/JENNIFER MAttress overlay Lane Saavedra Mar 02, 2020 12:29
--- NOTE | 2020-03-02 12:38 | Consultation ---
Consult Note Consult Note I am asked to evaluate the patient at the request of Dr. Dong for renal failure Patient seen in emergency room Initial blood work appears to be an error Discussed with the ER physician Central line to be put in for the purpose of fluid management and antibiotics and blood draw Reeval when the blood work is repeated Full note to follow ER note Patient is a 49-year-old female sent in from [facility] after increased altered mental status. Patient recent hospitalization at this hospital. She was noted to be hypotensive by EMS. She is noted to have some diarrheal stool. History is markedly limited by patient's mental status and poor historian. She is chronically trach and G-tube dependent. Primary care physician is Dr. Lucas Dong. 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 - COVID-19 Screening: Negative COVID-19 COVID-19 Testing Source: [facility] Hx Hypertension: Yes Hx Pacemaker: Yes - Left upper chest Hx Diabetes: Yes Hx Gastrointestinal Problems: Yes - gerd, gastrostomy Hx Neurological Problems: Yes - dysphagia, Hx Parkinson's Disease: Yes Hx Dysphasia: Yes Vital Signs Date Time Temp Pulse Resp B/P (MAP) Pulse Ox O2 Delivery O2 Flow Rate FiO2 03/02/20 09:25 98.8 76 19 80/4 (29) 100 Mechanical Ventilator Previous conditions: (1) JAVIER (acute kidney injury) (2) Renal failure (ARF), acute on chronic (3) Feeding by G-tube (4) Tracheostomy in place (5) Electrolyte imbalance, hyponatremia (6) Anemia, severe (7) Respiratory failure, acute and chronic (8) Elevated lipase, pancreatitis (9) Elevated troponin I (10) Sepsis Physical Exam Gen: NAD HEENT: NCAT, trach Pulm: BL chest rise on vent Abd: Soft, NTND Ext: No c/c/e Skin: No visible rashes Neuro: Awake but not interactive, doesn't follow commands Lines: R chest Permacath dressing c/d/i Last 24 Hour Vital Signs Date Time Temp Pulse Resp B/P (MAP) Pulse Ox O2 Delivery O2 Flow Rate FiO2 03/03/20 08:38 92 03/03/20 07:15 100 25 40 03/03/20 04:00 99.5 100 16 102/48 (66) 100 03/03/20 04:00 Mechanical Ventilator 03/03/20 04:00 40 03/03/20 03:53 99 03/03/20 03:35 98 19 40 03/03/20 00:00 Mechanical Ventilator 03/03/20 00:00 40 03/03/20 00:00 98.2 101 16 106/45 (65) 100 03/02/20 23:13 100 03/02/20 22:58 98 14 40 03/02/20 22:24 88 03/02/20 20:38 Mechanical Ventilator 03/02/20 20:24 60 03/02/20 19:36 85 20 100 03/02/20 18:56 98.8 87 19 98/41 100 Mechanical Ventilator 100 03/02/20 18:40 98.8 87 19 98/41 100 Mechanical Ventilator 03/02/20 15:26 98.8 78 19 98/35 100 Mechanical Ventilator 03/02/20 14:16 78 19 100 03/02/20 13:30 98.8 75 18 99/37 100 Mechanical Ventilator 03/02/20 11:28 98.8 73 19 80/34 100 Mechanical Ventilator 03/02/20 11:04 71 19 100 03/02/20 10:15 71 19 Mechanical Ventilator 03/02/20 10:11 98.8 71 19 90/61 100 Mechanical Ventilator 03/02/20 09:25 98.8 76 19 80/4 (29) 100 Mechanical Ventilator Intake and Output 03/02/20 03/03/20 19:00 07:00 Intake Total 543 ml Output Total 103 ml 300 ml Balance -103 ml 243 ml Intake IV Total 403 ml Tube Feeding 140 ml Output Urine Total 100 ml 300 ml Stool Total 3 ml # Bowel Movements 3 Assessment/Plan Current conditions: Severe anemia Worsening renal failure Severe electrolyte abnormalities Chronic vent dependent PEG Sepsis Aim to correct abnormal electrolytes Dialysis as needed Transfusion as needed Adjust medications for low blood pressure Per orders Johnny Houston MD Mar 02, 2020 12:38
[2020-03-02] MEDS ORDERED: Lidocaine 1% MPF 10mg/ml 5ml ONE (13:02)
[2020-03-02 13:30] VITALS: BP 99/37
--- NOTE | 2020-03-02 14:02 | Diagnostic Imaging Report ---
Indication: Shortness of breath Technique: One view of the chest Comparison: 01/22/2020 Findings: Tracheostomy again demonstrated. Interim placement of a right jugular tunneled dialysis catheter. There is infiltrate and volume loss in the left lung, particularly in the perihilar region, suprahilar region, and base. Consolidation at the lung base is similar. The perihilar and suprahilar region consolidation is new. The right lung pleural space are clear. Impression: Left lung atelectasis and consolidation, as described
--- NOTE | 2020-03-02 14:45 | NUR ---
ED Nurse Note:started second unit of blood transfusion, pt. tolerating well
--- NOTE | 2020-03-02 15:20 | NUR ---
ED Nurse Note:called labs to come and draw lactic reflax due to pt. difficult blood access
[2020-03-02 15:26] VITALS: BP 98/35
[2020-03-02 16:41] LABS: HEMATOCRIT 16.3 % (37.0-47.0); MEAN CORPUSCULAR VOLUME 89 FL (80-99); PLATELET COUNT 246 K/UL (150-450); RED BLOOD COUNT 1.82 M/UL (4.20-5.40); RED CELL DISTRIBUTION WIDTH 14.5 % (11.6-14.8)
--- NOTE | 2020-03-02 16:45 | NUR ---
ED Nurse Note:second unit blood transfusion is finished, VSS,
[2020-03-02 16:57] LABS: WHITE BLOOD COUNT 40.2 K/UL (4.8-10.8)
[2020-03-02 16:59] LABS: HEMOGLOBIN 5.1 G/DL (12.0-16.0)
[2020-03-02 18:40] VITALS: BP 98/41
--- NOTE | 2020-03-02 19:00 | NUR ---
ED Nurse Note:called report to SDU, given to Marvin ZIMMERMAN, pt. taken to the room
--- NOTE | 2020-03-02 19:40 | NUR ---
NURSE NOTES: Received report from ERASMO Benito. Pt asleep in bed, afebrile and no respiratory distress noted. trache to vent Shiley XLT, AC 14, TV 500, Fio2 100%, Peep of 5 saturating at 100%. With Gtube in place, flushed, with residual of 100cc. MD was made aware. With left AC 22G and right foot 24 g IV lines intact, patent and asymptomatic. With FC to urine bag drain light yellow urine. HOB elevated. Call light within reach. Bed rails are up and wheels are locked. Call light within reach. Continue plan of care Addendum: 03/02/20 at 2345 by SHEBA Alicia RN with right upper chest dialysis catheter intact, no bleeding noted. Dry dressing and clean.
--- NOTE | 2020-03-02 20:15 | NUR ---
NURSE NOTES: blood transfusion is done. VS WNL. No adverse reaction noted to patient. Continue to monitor
[2020-03-02] MEDS ORDERED: HYDROcodone/Acetamin 5/325 tab GT PRN (22:00)
[2020-03-02] MEDS ORDERED: Miralax 17gm pkt GT PRN (22:00)
[2020-03-02] MEDS ORDERED: Lactulose 20gm/30ml UDC GT PRN (22:00)
[2020-03-02] MEDS ORDERED: Acetaminophen 650mg/20.3ml NG PRN (22:30)
[2020-03-03] VITALS (7 sets, daily range): BP systolic 76–116; BP diastolic 44–70
[2020-03-03] MEDS ORDERED: Acetaminophen 650mg/20.3ml GT PRN (03:00)
--- NOTE | 2020-03-03 06:20 | NUR ---
NURSE NOTES: Pt asleep in bed. Suction prn done. VS wnl. no respiratory distress noted. Pt saturating at 100%. Continue plan of care.
[2020-03-03 07:04] LABS: HEMATOCRIT 20.6 % (37.0-47.0); HEMOGLOBIN 7.1 G/DL (12.0-16.0); MEAN CORPUSCULAR VOLUME 85 FL (80-99); PLATELET COUNT 265 K/UL (150-450); RED BLOOD COUNT 2.42 M/UL (4.20-5.40); RED CELL DISTRIBUTION WIDTH 14.2 % (11.6-14.8)
--- NOTE | 2020-03-03 07:21 | NUR ---
NURSE HAND-OFF REPORT: Important Events on Shift: new admission/ Blodo transfusion Patient Status: stable but close monitoring Diet: nephro at 45cc/hr Pending Orders: n Pending Results/Labs:y Pending MD notification:n Latest Vital Signs: Temperature 99.5 , Pulse 100 , B/P 102 /48 , Respiratory Rate 16 , O2 SAT 100 , Mechanical Ventilator, O2 Flow Rate . Vital Sign Comment: n EKG Rhythm: Sinus Rhythm Rhythm change?: N MD Notified?: - MD Response: Latest Chavarria Fall Score: 35 Fall Risk: Medium Risk Safety Measures: Call light Within Reach, Bed Alarm Zone 1, Side Rails Side Rails x2, Bed position Low and Locked. Fall Precautions: Yellow Socks Report given to ERASMO Herrera.
[2020-03-03 07:24] LABS: WHITE BLOOD COUNT 27.4 K/UL (4.8-10.8)
--- NOTE | 2020-03-03 07:30 | NUR ---
NURSE NOTES:Handoff received from ERASMO SCRUGGS. Patient received sleeping in bed, no acute signs of distress noted, patient is on trach to vent with Shiley XLT 7, AC14, TV500, PEEP 5 and FI02 70% tolerating well with o2 saturation of 100%. G tube is running Nepro@ 20ML with goal of 45ML/HR. Norman is patent and draining to gravity. Placed on fall and aspiration precautions with bed in the low and locked position, call light at bedside, bed alarm on and HOB elevated to 30'.pvc monitor is on, showing SR with HR of 97. Patient has R upper chest dialysis catheter, clean dry and intact, IV site is LAC 22G and R foot 24G, with L AC running NS@50Ml/HR. Will follow plan of care.
[2020-03-03 07:36] LABS: CALCIUM 8.7 MG/DL (8.5-10.1); CREATININE 4.4 MG/DL (0.55-1.30); POTASSIUM 4.4 MMOL/L (3.5-5.1)
[2020-03-03] MEDS: Heparin 5000 units/ml inj SUBQ SCH ×2 (09:00→20:35)
--- NOTE | 2020-03-03 09:11 | NUR ---
RD ASSESSMENT & RECOMMENDATIONS SEE CARE ACTIVITY FOR COMPLETE ASSESSMENT DAILY ESTIMATED NEEDS: Needs based on Critical care, wound, renal dysfunction 59.5 kg 27-22 kcals/kg 7201-0886 total kcals W/ HD (1.5-2.0) g protein/kg 89-119 g total protein Fluid per MD NUTRITION DIAGNOSIS: * Swallowing difficulty R/T dysphagia, respiratory status as evidenced by vent dep via trach, GT Dep. * Increase kcal and pro needs r/t wound healing, renal dysfunction as evidenced by h/o stage 4 sacral wound, and HD. CURRENT TF: Nepro @ 45ml/hr x 24 hrs ENTERAL NUTRITION RECOMMENDATIONS: Nepro @ 45ml/hr x 24 hrs + Prosource 1pkt QD to provide 1080ml, 1944 kcal, 87g + 11g pro, 785ml free H2O * Advance as tolerated to goal. * Add Prosource 1pkt QD to better meet increased protein needs (additional 11g prot) * Water flush per MD/ HOB over 30 degrees ADDITIONAL RECOMMENDATIONS: * Maintain calibrated bed scale * Monitor for HD continuity * F/up w/ WC eval-> add FRANKLIN in 4oz H2O BID via GT * On lactulose, monitor for BM * Monitor BG (hypoglycemic this morning), rec bed side BG checks . .
--- NOTE | 2020-03-03 09:18 | Consultation ---
History of Present Illness General Date patient seen: Mar 03, 2020 Time patient seen: 11:04 Chief Complaint: Altered Mental Status Referring physician: PCP Reason for Consultation: Bacteremia Present Illness HPI 49yo F who was recently admitted to this hospital for infection, now readmitted for AMS, found to have anemia to the 1s, leukocytosis to 40 and GPC bacteremia. ID c/s to treat infection. Pt is nonverbal on vent, history obtained from chart review and d/w rn staff. No clear source of bleeding per RN, but still hypotensive, just got 1L bolus Stable on vent 40% PEEP 5 R chest Permacath w/ some dried blood around insertion site Allergies: Coded Allergies: No Known Allergies (Unverified , 10/10/17) Medication History Scheduled Albuterol Sulfate (Proventil Hfa), 2 PUFF IH Q6HR, (Reported) Amantadine Hcl* (Symmetrel*), 100 MG ORAL TWICE A DAY, (Reported) Amantadine Hcl* (Amantadine*), 100 MG GT TWICE A DAY, (Reported) Amino Acids/Protein Hydrolys (Pro-Stat Liquid), 30 ML GT DAILY, (Reported) Amlodipine Besylate* (Amlodipine Besylate*), 5 MG GT BID, (Reported) Ascorbic Acid* (Vitamin C*), 500 MG GT DAILY, (Reported) Atorvastatin Calcium* (Lipitor*), 10 MG GT DAILY, (Reported) Chlorhexidine Gluconate (Chlorhexidine Gluconate), 15 ML MM BID, (Reported) Cholecalciferol (Vitamin D3) (Vitamin D3), 125 MCG GT DAILY, (Reported) Clonazepam* (Klonopin*), 1 MG GT Q8HR, (Reported) Cran/Vitc/Mannose/Inulin/Brom (Uti-Stat Liquid), 30 ML GT DAILY, (Reported) Diltiazem Hcl* (Cardizem*), 30 MG GT EVERY 8 HOURS, (Reported) Docusate Sodium* (Docusate Sodium*), 100 MG GT DAILY, (Reported) Epoetin Gelacio-Epbx (Retacrit), 10,000 UNIT SQ 3XW, (Reported) Gemfibrozil* (Lopid*), 600 MG GT TWICE A DAY, (Reported) Hydralazine Hcl* (Hydralazine Hcl*), 25 MG GT EVERY 6 HOURS, (Reported) Insulin Aspart (Novolog Flexpen), 0 SUBQ Q6HR, (Reported) Ipratropium Cheyenne (Atrovent Hfa), 2 PUFFS IH Q6HR, (Reported) Lisinopril (Lisinopril*), 20 MG GT DAILY, (Reported) Metoclopramide Hcl* (Metoclopramide Hcl*), 5 ML GT EVERY 6 HOURS, (Reported) Metolazone (Metolazone), 2.5 MG GT BID, (Reported) Minoxidil* (Loniten*), 2.5 MG GT EVERY 8 HOURS, (Reported) Polyethylene Glycol 3350* (Miralax*), 17 GM GT QHS, (Reported) Silver Sulfadiazine (Silvadene), 20 GM TP DAILY, (Reported) Vitamin B Cmplx/Vit C/Folic AC (Nephro-Cyril Tablet), 1 TAB GT DAILY, (Reported) Scheduled PRN Acetaminophen (Tylenol), 2 TAB GT Q4HR PRN for Prn Pain/Headache/Temp > 101, (Reported) Magnesium Hydroxide* (Milk Of Magnesia*), 30 ML GT QHS PRN for Constipation, (Reported) Tramadol HCl (Tramadol HCl), 100 MG GT Q8HR PRN for Moderate Pain (Pain Scale 4- 6), (Reported) Miscellaneous Medications Isosorbide Dinitrate (Isosorbide Dinitrate*), 5 MG GT, (Reported) Patient History Limited by: medical condition Healthcare decision maker Resuscitation status Advanced Directive on File Review of Systems ROS Narrative Unable to assess 2/2 pt condition Physical Exam Physical Exam Narrative Gen: NAD HEENT: NCAT, trach Pulm: BL chest rise on vent Abd: Soft, NTND Ext: No c/c/e Skin: No visible rashes Neuro: Awake but not interactive, doesn't follow commands Lines: R chest Permacath dressing c/d/i Last 24 Hour Vital Signs Date Time Temp Pulse Resp B/P (MAP) Pulse Ox O2 Delivery O2 Flow Rate FiO2 03/03/20 08:38 92 03/03/20 07:15 100 25 40 03/03/20 04:00 99.5 100 16 102/48 (66) 100 03/03/20 04:00 Mechanical Ventilator 03/03/20 04:00 40 03/03/20 03:53 99 03/03/20 03:35 98 19 40 03/03/20 00:00 Mechanical Ventilator 03/03/20 00:00 40 03/03/20 00:00 98.2 101 16 106/45 (65) 100 03/02/20 23:13 100 03/02/20 22:58 98 14 40 03/02/20 22:24 88 03/02/20 20:38 Mechanical Ventilator 03/02/20 20:24 60 03/02/20 19:36 85 20 100 03/02/20 18:56 98.8 87 19 98/41 100 Mechanical Ventilator 100 03/02/20 18:40 98.8 87 19 98/41 100 Mechanical Ventilator 03/02/20 15:26 98.8 78 19 98/35 100 Mechanical Ventilator 03/02/20 14:16 78 19 100 03/02/20 13:30 98.8 75 18 99/37 100 Mechanical Ventilator 03/02/20 11:28 98.8 73 19 80/34 100 Mechanical Ventilator 03/02/20 11:04 71 19 100 03/02/20 10:15 71 19 Mechanical Ventilator 03/02/20 10:11 98.8 71 19 90/61 100 Mechanical Ventilator 03/02/20 09:25 98.8 76 19 80/4 (29) 100 Mechanical Ventilator Intake and Output 03/02/20 03/03/20 19:00 07:00 Intake Total 543 ml Output Total 103 ml 300 ml Balance -103 ml 243 ml Intake IV Total 403 ml Tube Feeding 140 ml Output Urine Total 100 ml 300 ml Stool Total 3 ml # Bowel Movements 3 Laboratory Tests Test 03/02/20 10:00 03/02/20 10:40 03/02/20 10:50 03/02/20 16:30 Urine Color Pale yellow Urine Appearance Cloudy Urine pH 8 (4.5-8.0) Urine Specific [place] 1.010 (1.005-1.035) Urine Protein 3+ (NEGATIVE) H Urine Glucose (UA) Negative (NEGATIVE) Urine Ketones 1+ (NEGATIVE) H Urine Blood 5+ (NEGATIVE) H Urine Nitrite Negative (NEGATIVE) Urine Bilirubin Negative (NEGATIVE) Urine Urobilinogen Normal MG/DL (0.0-1.0) Urine Leukocyte Esterase 3+ (NEGATIVE) H Urine RBC 15-20 /HPF (0 - 2) H Urine WBC 40-60 /HPF (0 - 2) H Urine Squamous Epithelial Cells Few /LPF (NONE/OCC) Urine Calcium Oxalate Crystals Occasional /LPF (NONE) Urine Amorphous Sediment Many /LPF (NONE) H Urine Bacteria Many /HPF (NONE) H Stool Occult Blood Positive (NEGATIVE) Arterial Blood pH 7.119 (7.350-7.450) Arterial Blood Partial Pressure CO2 44.4 mmHg (35.0-45.0) Arterial Blood Partial Pressure O2 37.7 mmHg (75.0-100.0) Arterial Blood HCO3 14.1 mmol/L (22.0-26.0) *L Arterial Blood Oxygen Saturation 49.9 % (95-100) *L Arterial Blood Base Excess -13.4 (-2-2) *L Rojas Test Positive White Blood Count 30.6 K/UL (4.8-10.8) *H 40.2 K/UL (4.8-10.8) *H Red Blood Count 0.69 M/UL (4.20-5.40) L 1.82 M/UL (4.20-5.40) L Hemoglobin 1.9 G/DL (12.0-16.0) *L 5.1 G/DL (12.0-16.0) Hematocrit 6.3 % (37.0-47.0) L 16.3 % (37.0-47.0) #L Mean Corpuscular Volume 91 FL (80-99) 89 FL (80-99) Mean Corpuscular Hemoglobin 28.0 PG (27.0-31.0) 28.2 PG (27.0-31.0) Mean Corpuscular Hemoglobin Concent 30.7 G/DL (32.0-36.0) L 31.5 G/DL (32.0-36.0) L Red Cell Distribution Width 18.0 % (11.6-14.8) H 14.5 % (11.6-14.8) Platelet Count 252 K/UL (150-450) 246 K/UL (150-450) Mean Platelet Volume 6.1 FL (6.5-10.1) L 5.8 FL (6.5-10.1) L Neutrophils (%) (Auto) % (45.0-75.0) % (45.0-75.0) Lymphocytes (%) (Auto) % (20.0-45.0) % (20.0-45.0) Monocytes (%) (Auto) % (1.0-10.0) % (1.0-10.0) Eosinophils (%) (Auto) % (0.0-3.0) % (0.0-3.0) Basophils (%) (Auto) % (0.0-2.0) % (0.0-2.0) Differential Total Cells Counted 100 100 Neutrophils % (Manual) 88 % (45-75) H 69 % (45-75) Lymphocytes % (Manual) 6 % (20-45) L 5 % (20-45) L Monocytes % (Manual) 6 % (1-10) 4 % (1-10) Eosinophils % (Manual) 0 % (0-3) 0 % (0-3) Basophils % (Manual) 0 % (0-2) 0 % (0-2) Band Neutrophils 0 % (0-8) 20 % (0-8) H Platelet Estimate Adequate Adequate Platelet Morphology Normal Normal Hypochromasia 3+ 3+ Anisocytosis 1+ 1+ Sodium Level 116 MMOL/L (136-145) *L Potassium Level 5.5 MMOL/L (3.5-5.1) H Chloride Level 83 MMOL/L (98-107) L Carbon Dioxide Level 13 MMOL/L (21-32) L Anion Gap 20 mmol/L (5-15) H Blood Urea Nitrogen 217 mg/dL (7-18) H Creatinine 4.6 MG/DL (0.55-1.30) H Estimat Glomerular Filtration Rate 10.2 mL/min (>60) Glucose Level 107 MG/DL (74-106) H Calcium Level 8.8 MG/DL (8.5-10.1) Phosphorus Level 5.0 MG/DL (2.5-4.9) H Magnesium Level 3.3 MG/DL (1.8-2.4) H Total Bilirubin 0.3 MG/DL (0.2-1.0) Aspartate Amino Transf (AST/SGOT) 56 U/L (15-37) H Alanine Aminotransferase (ALT/SGPT) 23 U/L (12-78) Alkaline Phosphatase 105 U/L (46-116) Total Creatine Kinase 86 U/L (26-308) Creatine Kinase MB 5.2 NG/ML (0.0-3.6) H Creatine Kinase MB Relative Index 6.0 Troponin I 0.086 ng/mL (0.000-0.056) Pro-B-Type Natriuretic Peptide > 00552 pg/mL (0-125) H Total Protein 5.4 G/DL (6.4-8.2) L Albumin 1.6 G/DL (3.4-5.0) L Globulin 3.8 g/dL Albumin/Globulin Ratio 0.4 (1.0-2.7) L Lipase 266 U/L (73-393) Prothrombin Time 15.0 SEC (9.30-11.50) H Prothromb Time International Ratio 1.4 (0.9-1.1) H Activated Partial Thromboplast Time 26 SEC (23-33) Lactic Acid Level 4.50 mmol/L (0.4-2.0) H 3.00 mmol/L (0.66-2.22) H Metamyelocytes % 1 % (0-0) H Myelocytes % 1 % (0-0) H Geovanna Cells 1+ Test 03/03/20 04:24 03/03/20 04:30 White Blood Count 27.4 K/UL (4.8-10.8) *H Red Blood Count 2.42 M/UL (4.20-5.40) L Hemoglobin 7.1 G/DL (12.0-16.0) #L Hematocrit 20.6 % (37.0-47.0) L Mean Corpuscular Volume 85 FL (80-99) Mean Corpuscular Hemoglobin 29.2 PG (27.0-31.0) Mean Corpuscular Hemoglobin Concent 34.4 G/DL (32.0-36.0) Red Cell Distribution Width 14.2 % (11.6-14.8) Platelet Count 265 K/UL (150-450) Mean Platelet Volume 5.7 FL (6.5-10.1) L Neutrophils (%) (Auto) % (45.0-75.0) Lymphocytes (%) (Auto) % (20.0-45.0) Monocytes (%) (Auto) % (1.0-10.0) Eosinophils (%) (Auto) % (0.0-3.0) Basophils (%) (Auto) % (0.0-2.0) Neutrophils % (Manual) Pending Lymphocytes % (Manual) Pending Platelet Estimate Pending Platelet Morphology Pending Sodium Level 122 MMOL/L (136-145) L Potassium Level 4.4 MMOL/L (3.5-5.1) Chloride Level 87 MMOL/L (98-107) L Carbon Dioxide Level 16 MMOL/L (21-32) L Anion Gap 19 mmol/L (5-15) H Blood Urea Nitrogen 224 mg/dL (7-18) H Creatinine 4.4 MG/DL (0.55-1.30) H Estimat Glomerular Filtration Rate 10.8 mL/min (>60) Glucose Level 67 MG/DL (74-106) L Hemoglobin A1c 5.4 % (4.3-6.0) Calcium Level 8.7 MG/DL (8.5-10.1) Urine Random Sodium 36 mmol/L (20-110) Microbiology Date/Time Source Procedure Growth Status 03/02/20 10:00 Urine,Clean Catch Urine Culture - Preliminary Gram Negative Arnaud Resulted 03/02/20 10:00 Stool Clostridium difficile Toxin Assay - Final Complete 03/02/20 10:00 Nasopharynx SARS-CoV-2 RdRp Gene Assay - Final Complete 03/02/20 10:00 Blood Blood Culture - Preliminary Gram Positive Cocci Resulted Height (Feet): 5 Height (Inches): 3.00 Weight (Pounds): 128 Medications Current Medications Medications (Trade) Dose Ordered Sig/Penny Route PRN Reason Start Time Stop Time Status Last Admin Dose Admin Acetaminophen (Tylenol) 650 mg Q6H PRN GT Mild Pain (Pain Scale 1-3) 03/02/20 22:30 04/01/20 22:29 Acetaminophen (Tylenol) 650 mg Q6H PRN GT Temp >100.5 03/03/20 03:00 04/01/20 22:29 Acetaminophen/ Hydrocodone Bitart ([place] 5/325) 1 tab Q6H PRN GT Severe Pain (Pain Scale 7-10) 03/02/20 22:00 03/09/20 21:59 Amlodipine Besylate (Norvasc) 5 mg BID GT 03/03/20 09:00 04/02/20 08:59 Aspirin (ASA) 81 mg DAILY GT 03/03/20 09:00 04/17/20 08:59 Atorvastatin Calcium (Lipitor) 10 mg BEDTIME GT 03/03/20 21:00 06/01/20 20:59 Chlorhexidine Gluconate (Ling-Hex 2%) 1 applic DAILY@2000 TOPIC 03/03/20 20:00 06/01/20 19:59 Heparin Sodium (Porcine) (Heparin 5000 units/ml) 5,000 units EVERY 12 HOURS SUBQ 03/03/20 09:00 04/17/20 08:59 Hydralazine HCl (Apresoline) 25 mg Q6H PRN GT For High Blood Pressure 03/02/20 22:00 05/31/20 21:59 Isosorbide Dinitrate (Isordil) 20 mg TID GT 03/03/20 09:00 04/02/20 08:59 Lactulose (Cephulac) 20 gm THREE TIMES A DAY PRN GT Constipation 03/02/20 22:00 04/01/20 21:59 Lansoprazole (Prevacid) 30 mg Q12HR GT 03/03/20 09:00 04/02/20 08:59 Metoprolol Tartrate (Lopressor) 25 mg Q12HR GT 03/03/20 09:00 06/01/20 08:59 Polyethylene Glycol (Miralax) 17 gm BEDTIME PRN GT Constipation 03/02/20 22:00 04/01/20 21:59 Sodium Chloride 1,000 ml @ 50 mls/hr Q20H IV 03/02/20 23:00 04/01/20 22:59 03/02/20 23:28 Assessment/Plan Assessment/Plan: 49yo F with: AMS Anemia to 1.9 on admission 03/02 Leukocytosis to 40 GPC bacteremia Possible UTI Possible pna Hypotension 03/02 BCx +GPC UA+, UCx p COVID rapid neg, PCR p CXR: Tracheostomy again demonstrated. Interim placement of a right jugular tunneled dialysis catheter. There is infiltrate and volume loss in the left lung, particularly in the perihilar region, suprahilar region, and base. Consolidation at the lung base is similar. The perihilar and suprahilar region consolidation is new. The right lung pleural space are clear. C.dif neg 03/03 BCx ordered AF Sepsis Leukocytosis Hypoxia on vent Pneumonia c/b L pleural effusion (recurrent, prior determined to be transudative) - s/p thora 01/21, 1050cc removed Volume overload, BNP >35,0000, likely 2/2 progressive CKD --> ESRD ?Pancreatitis, Lipase >2000 Acute anemia to 5s CONS bacteremia, ?contaminant Aflutter w/ RVR 01/13 BCx 2/2 +S. epi COVID PCR neg Flu neg CXR: Large left pleural effusion. Bilateral interstitial and airspace infiltrates versus edema MRSA nares neg 01/16 BCx NTD 01/17 BCx / +Staph auricularis (skin colonizer) 01/18 Resp cx +MDR CRE PsA (S-gent, I-colistin, R-polyB) 01/18 C.dif neg 01/18 CXR: Similar opacification of the left hemithorax likely representing combination of pleural effusion with atelectasis versus pneumonia/edema. Decreased but persistent hazy opacity throughout the right lung may represent edema versus infectious/inflammatory process. 01/20 BCx NTD 01/21 L thora 1050 cc removed, cx NTD 01/25 Wound cx from Gtube site +CRE Kleb pna (arnett-R) and MDR PsA (colonizers) 01/26 CT A/P: Limited exam, due to severe diffuse anasarca. Ascites. Bilateral pleural effusions. Basilar pulmonary atelectatic changes and consolidation. Gastrostomy. Atrophic left kidney with a nephroureteral stents again demonstrated. Possible retrococcygeal decubitus changes. Correlate with clinical findings, consider MRI if there is concern for sacral osteomyelitis. Right hip intertrochanteric fracture, also previously demonstrated. Left femoral dialysis catheter. Nonspecific right lobe liver lesion is unchanged, not well- demonstrated. ctasia bordering on aneurysmal dilatation and possible chronic dissection of the distal thoracic aorta, also previously described. JAVIER on CKD On previous admission Sep-Oct 2019 required HD for short period Going to start HD this admission again R/o COVID / COVID PCR neg 12/29 neg at [facility] per report H/o UTI 10/15 u/a wbc 30-40, nit neg, leuk +3; ucx ESBL P. mirablis, ESBL M. morganii /2/20 u/a wbc tnct, nit neg, leuk +3; ucx >100k MDR P. stuarti (S Ceftriaxone, Meropenem) 10/07 u/a wbc tnct, nit neg, leuk ; ucx >100k VRE 10/15/19 u/a wbc tnct; ucx >100k ESBL P. stuarti (S ertapenem, aztreonam) H/o transudative pleural effusion 11/28 Sp Thora (w: 169, PMN: 2%, L: 49% , LDH: 57, prot 2.5); cx Neg H/o PNA 10/15/19 Resp cx ESBL P. mirabilis, MDR P.a. (S only to Gent) 09/22 Resp cx + MDR PsA (S-gent; I-colistin; R-levofloxacin, Zosyn, angelo) 09/16/19 Sp cx ESBL P. mirablis H/o PPM site (pocket) infection and pocket abscess 2ry to S. epi-11/2018, sp >6weeks IV vancomycin 11/27 SP ABBIE: no evidence for vegetation on any of the valves 11/26/18 SP PPM removal: OR findings:The fibrous capsule enclosing the generator was then opened and there was a [id number] amount of yellowish fluid drainage. The generator was then removed.Atrial and ventricular leads were detached. The necrotic tissue of the pocket was then removed and the pocket was flushed with an antibiotic solution. Capsule, wound tissue and lead tip cx: Neg 2d echo: no vegetation seen US chest: 4.6 x 3.4 x 0.9 cm hypoechoic/anechoic area overlying left chest pacemaker power pack. This could represent either a discrete fluid collection or a focal area of very edematous tissue. Infected fluid pocket also possible. 11/18 Bcx 3/4 S. epi; 11/20 Bcx neg; 11/24 Bcx Neg; 11/27 Bcx Neg CAD s/p CABG GERD/gastritis Afib HTN Dysphagia sp GT Aortic dissection s/p repair 2017 S/p PPM Parkinson's Disease Schizophrenia Anxiety COPD Chronic resp failure s/p trach Hx of tracheal bleeding [place] resident ([facility]) VRE and MRSA colonized Plan: Start vanco IV #2 given GPC bacteremia Start meropenem #2 given possible UTI, pna, hypotension Repeat BCx COVID PCR Trend Hg, GIB? Trend BP, WBC F/u BCx 03/02 +GPCs 01/31 SP angelo/inh tobra #10 for pna 01/23 SP vanco IV #10 given CONS/GPC bacteremia 01/16 SP Zosyn #2 01/14 SP dex 10mg in ED 12/10 SP IV Gentamycin #10 12/07 SP Meropenem #10 12/01 SP IV Vancomycin #5 11/28 Sp Cefepime #2 and IV Gentamycin x1 Monitor CBC/CMP Monitor temp curve, hemodynamics Monitor resp status D/w RN Thank you for this consult. [facility] will continue to follow. Ro Pack M.D. Mar 03, 2020 09:18
--- NOTE | 2020-03-03 09:18 | NUR ---
NURSE NOTES:Paged Dr Urban as patient sodium level if 122 and BP is low 70s/50s awaiting MD response.
[2020-03-03] MEDS: Aspirin Baby 81mg GT SCH (09:31)
--- NOTE | 2020-03-03 09:56 | Consultation ---
History of Present Illness General Chief Complaint: Altered Mental Status Referring physician: PCP Reason for Consultation: Bacteremia Present Illness Allergies: Coded Allergies: No Known Allergies (Unverified , 10/10/17) Medication History Scheduled Albuterol Sulfate (Proventil Hfa), 2 PUFF IH Q6HR, (Reported) Amantadine Hcl* (Symmetrel*), 100 MG ORAL TWICE A DAY, (Reported) Amantadine Hcl* (Amantadine*), 100 MG GT TWICE A DAY, (Reported) Amino Acids/Protein Hydrolys (Pro-Stat Liquid), 30 ML GT DAILY, (Reported) Amlodipine Besylate* (Amlodipine Besylate*), 5 MG GT BID, (Reported) Ascorbic Acid* (Vitamin C*), 500 MG GT DAILY, (Reported) Atorvastatin Calcium* (Lipitor*), 10 MG GT DAILY, (Reported) Chlorhexidine Gluconate (Chlorhexidine Gluconate), 15 ML MM BID, (Reported) Cholecalciferol (Vitamin D3) (Vitamin D3), 125 MCG GT DAILY, (Reported) Clonazepam* (Klonopin*), 1 MG GT Q8HR, (Reported) Cran/Vitc/Mannose/Inulin/Brom (Uti-Stat Liquid), 30 ML GT DAILY, (Reported) Diltiazem Hcl* (Cardizem*), 30 MG GT EVERY 8 HOURS, (Reported) Docusate Sodium* (Docusate Sodium*), 100 MG GT DAILY, (Reported) Epoetin Gleacio-Epbx (Retacrit), 10,000 UNIT SQ 3XW, (Reported) Gemfibrozil* (Lopid*), 600 MG GT TWICE A DAY, (Reported) Hydralazine Hcl* (Hydralazine Hcl*), 25 MG GT EVERY 6 HOURS, (Reported) Insulin Aspart (Novolog Flexpen), 0 SUBQ Q6HR, (Reported) Ipratropium Scotts (Atrovent Hfa), 2 PUFFS IH Q6HR, (Reported) Lisinopril (Lisinopril*), 20 MG GT DAILY, (Reported) Metoclopramide Hcl* (Metoclopramide Hcl*), 5 ML GT EVERY 6 HOURS, (Reported) Metolazone (Metolazone), 2.5 MG GT BID, (Reported) Minoxidil* (Loniten*), 2.5 MG GT EVERY 8 HOURS, (Reported) Polyethylene Glycol 3350* (Miralax*), 17 GM GT QHS, (Reported) Silver Sulfadiazine (Silvadene), 20 GM TP DAILY, (Reported) Vitamin B Cmplx/Vit C/Folic AC (Nephro-Cyril Tablet), 1 TAB GT DAILY, (Reported) Scheduled PRN Acetaminophen (Tylenol), 2 TAB GT Q4HR PRN for Prn Pain/Headache/Temp > 101, (Reported) Magnesium Hydroxide* (Milk Of Magnesia*), 30 ML GT QHS PRN for Constipation, ( Reported) Tramadol HCl (Tramadol HCl), 100 MG GT Q8HR PRN for Moderate Pain (Pain Scale 4- 6), (Reported) Miscellaneous Medications Isosorbide Dinitrate (Isosorbide Dinitrate*), 5 MG GT, (Reported) Patient History Healthcare decision maker Resuscitation status Advanced Directive on File Physical Exam Last 24 Hour Vital Signs Date Time Temp Pulse Resp B/P (MAP) Pulse Ox O2 Delivery O2 Flow Rate FiO2 03/03/20 09:00 92 76/56 03/03/20 09:00 76/56 03/03/20 09:00 92 76/56 03/03/20 08:38 92 03/03/20 08:00 40 03/03/20 08:00 99.5 96 18 76/56 (63) 100 03/03/20 08:00 Mechanical Ventilator 03/03/20 07:15 100 25 40 03/03/20 04:00 99.5 100 16 102/48 (66) 100 03/03/20 04:00 Mechanical Ventilator 03/03/20 04:00 40 03/03/20 03:53 99 03/03/20 03:35 98 19 40 03/03/20 00:00 Mechanical Ventilator 03/03/20 00:00 40 03/03/20 00:00 98.2 101 16 106/45 (65) 100 03/02/20 23:13 100 03/02/20 22:58 98 14 40 03/02/20 22:24 88 03/02/20 20:38 Mechanical Ventilator 03/02/20 20:24 60 03/02/20 19:36 85 20 100 03/02/20 18:56 98.8 87 19 98/41 100 Mechanical Ventilator 100 03/02/20 18:40 98.8 87 19 98/41 100 Mechanical Ventilator 03/02/20 15:26 98.8 78 19 98/35 100 Mechanical Ventilator 03/02/20 14:16 78 19 100 03/02/20 13:30 98.8 75 18 99/37 100 Mechanical Ventilator 03/02/20 11:28 98.8 73 19 80/34 100 Mechanical Ventilator 03/02/20 11:04 71 19 100 03/02/20 10:15 71 19 Mechanical Ventilator 03/02/20 10:11 98.8 71 19 90/61 100 Mechanical Ventilator Intake and Output 03/02/20 03/03/20 19:00 07:00 Intake Total 543 ml Output Total 103 ml 300 ml Balance -103 ml 243 ml Intake IV Total 403 ml Tube Feeding 140 ml Output Urine Total 100 ml 300 ml Stool Total 3 ml # Bowel Movements 3 Laboratory Tests Test 03/02/20 10:00 03/02/20 10:40 03/02/20 10:50 03/02/20 16:30 Urine Color Pale yellow Urine Appearance Cloudy Urine pH 8 (4.5-8.0) Urine Specific [place] 1.010 (1.005-1.035) Urine Protein 3+ (NEGATIVE) H Urine Glucose (UA) Negative (NEGATIVE) Urine Ketones 1+ (NEGATIVE) H Urine Blood 5+ (NEGATIVE) H Urine Nitrite Negative (NEGATIVE) Urine Bilirubin Negative (NEGATIVE) Urine Urobilinogen Normal MG/DL (0.0-1.0) Urine Leukocyte Esterase 3+ (NEGATIVE) H Urine RBC 15-20 /HPF (0 - 2) H Urine WBC 40-60 /HPF (0 - 2) H Urine Squamous Epithelial Cells Few /LPF (NONE/OCC) Urine Calcium Oxalate Crystals Occasional /LPF (NONE) Urine Amorphous Sediment Many /LPF (NONE) H Urine Bacteria Many /HPF (NONE) H Stool Occult Blood Positive (NEGATIVE) Arterial Blood pH 7.119 (7.350-7.450) Arterial Blood Partial Pressure CO2 44.4 mmHg (35.0-45.0) Arterial Blood Partial Pressure O2 37.7 mmHg (75.0-100.0) Arterial Blood HCO3 14.1 mmol/L (22.0-26.0) *L Arterial Blood Oxygen Saturation 49.9 % (95-100) *L Arterial Blood Base Excess -13.4 (-2-2) *L Rojas Test Positive White Blood Count 30.6 K/UL (4.8-10.8) *H 40.2 K/UL (4.8-10.8) *H Red Blood Count 0.69 M/UL (4.20-5.40) L 1.82 M/UL (4.20-5.40) L Hemoglobin 1.9 G/DL (12.0-16.0) *L 5.1 G/DL (12.0-16.0) Hematocrit 6.3 % (37.0-47.0) L 16.3 % (37.0-47.0) #L Mean Corpuscular Volume 91 FL (80-99) 89 FL (80-99) Mean Corpuscular Hemoglobin 28.0 PG (27.0-31.0) 28.2 PG (27.0-31.0) Mean Corpuscular Hemoglobin Concent 30.7 G/DL (32.0-36.0) L 31.5 G/DL (32.0-36.0) L Red Cell Distribution Width 18.0 % (11.6-14.8) H 14.5 % (11.6-14.8) Platelet Count 252 K/UL (150-450) 246 K/UL (150-450) Mean Platelet Volume 6.1 FL (6.5-10.1) L 5.8 FL (6.5-10.1) L Neutrophils (%) (Auto) % (45.0-75.0) % (45.0-75.0) Lymphocytes (%) (Auto) % (20.0-45.0) % (20.0-45.0) Monocytes (%) (Auto) % (1.0-10.0) % (1.0-10.0) Eosinophils (%) (Auto) % (0.0-3.0) % (0.0-3.0) Basophils (%) (Auto) % (0.0-2.0) % (0.0-2.0) Differential Total Cells Counted 100 100 Neutrophils % (Manual) 88 % (45-75) H 69 % (45-75) Lymphocytes % (Manual) 6 % (20-45) L 5 % (20-45) L Monocytes % (Manual) 6 % (1-10) 4 % (1-10) Eosinophils % (Manual) 0 % (0-3) 0 % (0-3) Basophils % (Manual) 0 % (0-2) 0 % (0-2) Band Neutrophils 0 % (0-8) 20 % (0-8) H Platelet Estimate Adequate Adequate Platelet Morphology Normal Normal Hypochromasia 3+ 3+ Anisocytosis 1+ 1+ Sodium Level 116 MMOL/L (136-145) *L Potassium Level 5.5 MMOL/L (3.5-5.1) H Chloride Level 83 MMOL/L (98-107) L Carbon Dioxide Level 13 MMOL/L (21-32) L Anion Gap 20 mmol/L (5-15) H Blood Urea Nitrogen 217 mg/dL (7-18) H Creatinine 4.6 MG/DL (0.55-1.30) H Estimat Glomerular Filtration Rate 10.2 mL/min (>60) Glucose Level 107 MG/DL (74-106) H Calcium Level 8.8 MG/DL (8.5-10.1) Phosphorus Level 5.0 MG/DL (2.5-4.9) H Magnesium Level 3.3 MG/DL (1.8-2.4) H Total Bilirubin 0.3 MG/DL (0.2-1.0) Aspartate Amino Transf (AST/SGOT) 56 U/L (15-37) H Alanine Aminotransferase (ALT/SGPT) 23 U/L (12-78) Alkaline Phosphatase 105 U/L (46-116) Total Creatine Kinase 86 U/L (26-308) Creatine Kinase MB 5.2 NG/ML (0.0-3.6) H Creatine Kinase MB Relative Index 6.0 Troponin I 0.086 ng/mL (0.000-0.056) Pro-B-Type Natriuretic Peptide > 75159 pg/mL (0-125) H Total Protein 5.4 G/DL (6.4-8.2) L Albumin 1.6 G/DL (3.4-5.0) L Globulin 3.8 g/dL Albumin/Globulin Ratio 0.4 (1.0-2.7) L Lipase 266 U/L (73-393) Prothrombin Time 15.0 SEC (9.30-11.50) H Prothromb Time International Ratio 1.4 (0.9-1.1) H Activated Partial Thromboplast Time 26 SEC (23-33) Lactic Acid Level 4.50 mmol/L (0.4-2.0) H 3.00 mmol/L (0.66-2.22) H Metamyelocytes % 1 % (0-0) H Myelocytes % 1 % (0-0) H Elcho Cells 1+ Test 03/03/20 04:24 03/03/20 04:30 White Blood Count 27.4 K/UL (4.8-10.8) *H Red Blood Count 2.42 M/UL (4.20-5.40) L Hemoglobin 7.1 G/DL (12.0-16.0) #L Hematocrit 20.6 % (37.0-47.0) L Mean Corpuscular Volume 85 FL (80-99) Mean Corpuscular Hemoglobin 29.2 PG (27.0-31.0) Mean Corpuscular Hemoglobin Concent 34.4 G/DL (32.0-36.0) Red Cell Distribution Width 14.2 % (11.6-14.8) Platelet Count 265 K/UL (150-450) Mean Platelet Volume 5.7 FL (6.5-10.1) L Neutrophils (%) (Auto) % (45.0-75.0) Lymphocytes (%) (Auto) % (20.0-45.0) Monocytes (%) (Auto) % (1.0-10.0) Eosinophils (%) (Auto) % (0.0-3.0) Basophils (%) (Auto) % (0.0-2.0) Neutrophils % (Manual) Pending Lymphocytes % (Manual) Pending Platelet Estimate Pending Platelet Morphology Pending Sodium Level 122 MMOL/L (136-145) L Potassium Level 4.4 MMOL/L (3.5-5.1) Chloride Level 87 MMOL/L (98-107) L Carbon Dioxide Level 16 MMOL/L (21-32) L Anion Gap 19 mmol/L (5-15) H Blood Urea Nitrogen 224 mg/dL (7-18) H Creatinine 4.4 MG/DL (0.55-1.30) H Estimat Glomerular Filtration Rate 10.8 mL/min (>60) Glucose Level 67 MG/DL (74-106) L Hemoglobin A1c 5.4 % (4.3-6.0) Calcium Level 8.7 MG/DL (8.5-10.1) Urine Random Sodium 36 mmol/L (20-110) Microbiology Date/Time Source Procedure Growth Status 03/02/20 10:00 Urine,Clean Catch Urine Culture - Preliminary Gram Negative Arnaud Resulted 03/02/20 10:00 Stool Clostridium difficile Toxin Assay - Final Complete 03/02/20 10:00 Nasopharynx SARS-CoV-2 RdRp Gene Assay - Final Complete 03/02/20 10:00 Blood Blood Culture - Preliminary Gram Positive Cocci Resulted Height (Feet): 5 Height (Inches): 3.00 Weight (Pounds): 128 Medications Current Medications Medications (Trade) Dose Ordered Sig/Penny Route PRN Reason Start Time Stop Time Status Last Admin Dose Admin Acetaminophen (Tylenol) 650 mg Q6H PRN GT Mild Pain (Pain Scale 1-3) 03/02/20 22:30 04/01/20 22:29 Acetaminophen (Tylenol) 650 mg Q6H PRN GT Temp >100.5 03/03/20 03:00 04/01/20 22:29 Acetaminophen/ Hydrocodone Bitart ([place]ley 5/325) 1 tab Q6H PRN GT Severe Pain (Pain Scale 7-10) 03/02/20 22:00 03/09/20 21:59 Amlodipine Besylate (Norvasc) 5 mg BID GT 03/03/20 09:00 04/02/20 08:59 Aspirin (ASA) 81 mg DAILY GT 03/03/20 09:00 04/17/20 08:59 03/03/20 09:31 Atorvastatin Calcium (Lipitor) 10 mg BEDTIME GT 03/03/20 21:00 06/01/20 20:59 Chlorhexidine Gluconate (Ling-Hex 2%) 1 applic DAILY@1999 TOPIC 03/03/20 20:00 06/01/20 19:59 Heparin Sodium (Porcine) (Heparin 5000 units/ml) 5,000 units EVERY 12 HOURS SUBQ 03/03/20 09:00 04/17/20 08:59 Hydralazine HCl (Apresoline) 25 mg Q6H PRN GT For High Blood Pressure 03/02/20 22:00 05/31/20 21:59 Isosorbide Dinitrate (Isordil) 20 mg TID GT 03/03/20 09:00 04/02/20 08:59 Lactulose (Cephulac) 20 gm THREE TIMES A DAY PRN GT Constipation 03/02/20 22:00 04/01/20 21:59 Lansoprazole (Prevacid) 30 mg Q12HR GT 03/03/20 09:00 04/02/20 08:59 03/03/20 09:32 Meropenem 500 mg/ Sodium Chloride 55 ml @ 110 mls/hr Q12H IVPB 03/03/20 10:00 03/08/20 09:59 Metoprolol Tartrate (Lopressor) 25 mg Q12HR GT 03/03/20 09:00 06/01/20 08:59 Polyethylene Glycol (Miralax) 17 gm BEDTIME PRN GT Constipation 03/02/20 22:00 04/01/20 21:59 Sodium Chloride 500 ml @ 999 mls/hr Q31M ONCE IV 03/03/20 09:30 03/03/20 10:00 03/03/20 09:32 Sodium Chloride 1,000 ml @ 50 mls/hr Q20H IV 03/02/20 23:00 04/01/20 22:59 03/02/20 23:28 Vancomycin HCl ([facility] pharmacy to dose) 1 ea DAILY PRN MISC Per rx protocol 03/03/20 09:15 04/02/20 09:14 Assessment/Plan Assessment/Plan: Consultation Note Hematology REQ : Lucas Dong DOS 03/03/2020 RFC: severe anemia, high wbc HPI This a 49 year-old female well known to me, with a history of schizophrenia, COPD, respiratory failure status post tracheostomy. She presents with chief complaint of shortness of breath and ams. I have seen her multiple times in the past, here from [facility]. She then complained of feeling short of breath and chest pain. detention called 911. Shredding Machine Operator gave her aspirin and nitroglycerin. No relief. Patient denies any trauma. No seizure history. Nothing made it better. Nothing made it worse. Denies any other complaint. History limited because patient has tracheostomy. Hgb 1.5 this am, transfused 2 units prbc with rn. 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 COVID-19 Screening: Negative COVID-19 COVID-19 Testing Source: earlier in August from SNF Patient History Past Medical History: see triage record, old chart reviewed, AFib, COPD Past Surgical History: other Pertinent Family History: none Social History: Denies: smoking Now: No Immunizations: other Reviewed Nursing Documentation: PMH: Agreed; PSxH: Agreed Nursing Documentation-PMH Hx Cardiac Problems: Yes Hx Hypertension: Yes Hx Pacemaker: Yes - Left upper chest Hx Cancer: No Hx Gastrointestinal Problems: No Hx Neurological Problems: Yes Hx Cerebrovascular Accident: No Hx Transient Ischemic Attacks: No Hx Dementia: No Hx Alzheimer's Disease: No Hx Parkinson's Disease: Yes Hx Meningitis: No Hx Encephalitis: No Hx Dysphasia: Yes Review of Systems nonverbal Physical Exam: Vitals: reviewed General: NAD HEENT: nc, at Neck: supple ++trach/vent Chest: clear breath sounds bilaterally Cardiovascular: RRR, no s3, s4 Abdomen: soft, nontender, nd +gtube Extremities: no cce, normal range of motion Neuro: alert Labs reviewed Imaging: noted Assessment and Recs # Leukocytosis, now with likely bacteremia, as per ID care --> Cxr: : Large left abiola consolidation/effusion --> wbc 30-->40-->27 --> ABX angelo/vanc --> ID recs are noted # Anemia of chronic disease due to underlying chronic medical issues, multifactorial --> Anemia workup has been reviewed, cw acd --> No evidence of hemolysis is noted, peripheral smear has been reviewed. --> Hgb goal >7. Transfuse prn. --> Epogen required in prior --> Medications have been reviewed --> low threshold for gi evaluation in case has occult + --> hgb 1.9-->5-->7.1 --> 1 unit prbc10/17, 2 units 12/3, 03/02 --> gi eval as needed # Coagulopathy with inr 1.5 --> consider vit k/ffp as needed preprocedure --> labs noted # JAVIER initially >2 --> on ivfs --> per renal # Elevated d-dimer, likely infection related --> venous duplex prior neg --> in prior neg # Dysphagia s/p peg --> as per gi # Thoracic aortic dissection --> s/p repair early 2017 # Chronic Resp failure -> s/p trach/vent # Psychiatric history on ativan/haldol # [place] resident # Dvt ppx --> scds The timing of this note does not necessarily reflect the time of the patient was seen. Greatly appreciate consultation. Evan Muhammad MD Mar 03, 2020 09:56
[2020-03-03] MEDS: Meropenem 500 MG in NS 55 ML IVPB SCH ×2 (10:32→21:25)
[2020-03-03 10:37] LABS: ALANINE AMINOTRANSFERASE 27 U/L (12-78); ALBUMIN 1.9 G/DL (3.4-5.0); ALKALINE PHOSPHATASE 127 U/L (46-116); ASPARTATE AMINO TRANSFERASE 65 U/L (15-37); BILIRUBIN,DIRECT 0.2 MG/DL (0.0-0.3); BILIRUBIN,TOTAL 0.3 MG/DL (0.2-1.0); PHOSPHORUS 3.6 MG/DL (2.5-4.9)
--- NOTE | 2020-03-03 10:59 | NUR ---
NURSE NOTES:Dr Urban spoke to scrap charger Greta and Gave orders for NS bolus. Patient BP now 107/45
[2020-03-03] MEDS ORDERED: NaCl 3% 500ml 500 ML IV SCH (11:30)
--- NOTE | 2020-03-03 11:54 | Nephrology Progress Note ---
Assessment/Plan Problem List: (1) Renal failure (ARF), acute on chronic (2) Anemia (3) Hyponatremia (4) Respiratory failure Assessment (1) JAVIER (acute kidney injury) (2) Renal failure (ARF), acute on chronic (3) Feeding by G-tube (4) Tracheostomy in place (5) Electrolyte imbalance, hyponatremia (6) Anemia, severe (7) Respiratory failure, acute and chronic (8) history of elevated lipase, pancreatitis (9) Elevated troponin I (10) Sepsis Plan March 03: Labs reviewed. Dialysis ordered. Blood pressure medication all discontinued due to hypotensive state. Albumin bolus given. Continue to monitor renal parameters. Medication list reviewed. Midodrin for low blood pressure ordered Subjective ROS Limited/Unobtainable: Yes Objective Objective Last 24 Hour Vital Signs Date Time Temp Pulse Resp B/P (MAP) Pulse Ox O2 Delivery O2 Flow Rate FiO2 03/03/20 11:41 98.1 86 18 116/70 (85) 100 03/03/20 11:15 86 24 40 03/03/20 11:00 107/45 (65) 03/03/20 09:00 92 76/56 03/03/20 09:00 76/56 03/03/20 09:00 92 76/56 03/03/20 08:38 92 03/03/20 08:00 40 03/03/20 08:00 99.5 96 18 76/56 (63) 100 03/03/20 08:00 Mechanical Ventilator 03/03/20 07:15 100 25 40 03/03/20 04:00 99.5 100 16 102/48 (66) 100 03/03/20 04:00 Mechanical Ventilator 03/03/20 04:00 40 03/03/20 03:53 99 03/03/20 03:35 98 19 40 03/03/20 00:00 Mechanical Ventilator 03/03/20 00:00 40 03/03/20 00:00 98.2 101 16 106/45 (65) 100 03/02/20 23:13 100 03/02/20 22:58 98 14 40 03/02/20 22:24 88 03/02/20 20:38 Mechanical Ventilator 03/02/20 20:24 60 03/02/20 19:36 85 20 100 03/02/20 18:56 98.8 87 19 98/41 100 Mechanical Ventilator 100 03/02/20 18:40 98.8 87 19 98/41 100 Mechanical Ventilator 03/02/20 15:26 98.8 78 19 98/35 100 Mechanical Ventilator 03/02/20 14:16 78 19 100 03/02/20 13:30 98.8 75 18 99/37 100 Mechanical Ventilator Intake and Output 03/02/20 03/03/20 19:00 07:00 Intake Total 543 ml Output Total 103 ml 300 ml Balance -103 ml 243 ml Intake IV Total 403 ml Tube Feeding 140 ml Output Urine Total 100 ml 300 ml Stool Total 3 ml # Bowel Movements 3 Current Medications Medications (Trade) Dose Ordered Sig/Penny Route PRN Reason Start Time Stop Time Status Last Admin Dose Admin Acetaminophen (Tylenol) 650 mg Q6H PRN GT Mild Pain (Pain Scale 1-3) 03/02/20 22:30 04/01/20 22:29 Acetaminophen (Tylenol) 650 mg Q6H PRN GT Temp >100.5 03/03/20 03:00 04/01/20 22:29 Acetaminophen/ Hydrocodone Bitart ([place]ley 5/325) 1 tab Q6H PRN GT Severe Pain (Pain Scale 7-10) 03/02/20 22:00 03/09/20 21:59 Albumin Human 100 ml @ 100 mls/hr ONCE IV 03/03/20 11:00 03/03/20 13:00 03/03/20 11:23 Aspirin (ASA) 81 mg DAILY GT 03/03/20 09:00 04/17/20 08:59 03/03/20 09:31 Atorvastatin Calcium (Lipitor) 10 mg BEDTIME GT 03/03/20 21:00 06/01/20 20:59 Chlorhexidine Gluconate (Ling-Hex 2%) 1 applic DAILY@2000 TOPIC 03/03/20 20:00 06/01/20 19:59 Heparin Sodium (Porcine) (Heparin 5000 units/ml) 5,000 units EVERY 12 HOURS SUBQ 03/03/20 09:00 04/17/20 08:59 Hydralazine HCl (Apresoline) 25 mg Q6H PRN GT For High Blood Pressure 03/02/20 22:00 05/31/20 21:59 Lactulose (Cephulac) 20 gm THREE TIMES A DAY PRN GT Constipation 03/02/20 22:00 04/01/20 21:59 Lansoprazole (Prevacid) 30 mg Q12HR GT 03/03/20 09:00 04/02/20 08:59 03/03/20 09:32 Meropenem 500 mg/ Sodium Chloride 55 ml @ 110 mls/hr Q12H IVPB 03/03/20 10:00 03/08/20 09:59 03/03/20 10:32 Midodrine (Pro-Amatine) 10 mg THREE TIMES A DAY GT 03/03/20 13:00 06/01/20 12:59 Polyethylene Glycol (Miralax) 17 gm BEDTIME PRN GT Constipation 03/02/20 22:00 04/01/20 21:59 Sodium Chloride 500 ml @ 30 mls/hr ONCE IV 03/03/20 11:30 03/04/20 04:09 03/03/20 11:33 Vancomycin HCl ([facility] pharmacy to dose) 1 ea DAILY PRN MISC Per rx protocol 03/03/20 09:15 04/02/20 09:14 Laboratory Tests 03/02/20 16:30: White Blood Count 40.2*H, Red Blood Count 1.82L, Hemoglobin 5.1#*L, Hematocrit 16.3#L, Mean Corpuscular Volume 89, Mean Corpuscular Hemoglobin 28.2, Mean Corpuscular Hemoglobin Concent 31.5L, Red Cell Distribution Width 14.5, Platelet Count 246, Mean Platelet Volume 5.8L, Neutrophils (%) (Auto) , Lymphocytes (%) (Auto) , Monocytes (%) (Auto) , Eosinophils (%) (Auto) , Basophils (%) (Auto) , Differential Total Cells Counted 100, Neutrophils % (Manual) 69, Lymphocytes % (Manual) 5L, Monocytes % (Manual) 4, Eosinophils % (Manual) 0, Basophils % (Manual) 0, Metamyelocytes % 1H, Myelocytes % 1H, Band Neutrophils 20H, Platelet Estimate Adequate, Platelet Morphology Normal, Hypochromasia 3+, Anisocytosis 1+, [place] Cells 1+, Lactic Acid Level 3.00H 03/03/20 04:24: White Blood Count 27.4*H, Red Blood Count 2.42L, Hemoglobin 7.1#L, Hematocrit 20.6L, Mean Corpuscular Volume 85, Mean Corpuscular Hemoglobin 29.2, Mean Corpuscular Hemoglobin Concent 34.4, Red Cell Distribution Width 14.2, Platelet Count 265, Mean Platelet Volume 5.7L, Neutrophils (%) (Auto) , Lymphocytes (%) (Auto) , Monocytes (%) (Auto) , Eosinophils (%) (Auto) , Basophils (%) (Auto) , Differential Total Cells Counted 100, Neutrophils % (Manual) 85H, Lymphocytes % (Manual) 3L, Monocytes % (Manual) 4, Eosinophils % (Manual) 0, Basophils % (Manual) 0, Myelocytes % 1H, Band Neutrophils 7, Platelet Estimate Adequate, Platelet Morphology Normal, Hypochromasia 1+, Anisocytosis 1+, Red Blood Cell Morphology Normal, Polychromasia 1+, Sodium Level 122L, Potassium Level 4.4, Chloride Level 87L, Carbon Dioxide Level 16L, Anion Gap 19H, Blood Urea Nitrogen 224H, Creatinine 4.4H, Estimat Glomerular Filtration Rate 10.8, Glucose Level 67L, Hemoglobin A1c 5.4, Uric Acid 8.4H, Calcium Level 8.7, Phosphorus Level 3.6, Magnesium Level 3.0H, Total Bilirubin 0.3, Direct Bilirubin 0.2, Aspartate Amino Transf (AST/SGOT) 65H, Alanine Aminotransferase (ALT/SGPT) 27, Alkaline Ph osphatase 127H, Total Protein 6.4, Albumin 1.9L 03/03/20 04:30: Urine Random Sodium 36 Height (Feet): 5 Height (Inches): 3.00 Weight (Pounds): 128 General Appearance: no apparent distress EENT: other - On mechanical ventilator Cardiovascular: normal rate Respiratory/Chest: decreased breath sounds Abdomen: distended Johnny Houston MD Mar 03, 2020 11:54
[2020-03-03] MEDS ORDERED: Midodrine 10mg tab GT SCH (13:00)
--- NOTE | 2020-03-03 13:07 | NUR ---
NURSE NOTES:WOUND CARE NOTES:Pt presented on admission with Full Thickness Sacral Pressure Injury (L)11cm x (W)13.5cm x (D)1.6cm, Undermining clockwise 7-3 by 3cm @7o'clock. Base of wound is 90% necrotic,10% mixed pink and slough.Epibole and maceration noted along borders. Periwound ,along borders is indurated with darker skin tone . No elevation in skin temp ,or erythema noted. Wound is malodorous. Small amt brown exudate noted. MASD noted to perineum, Bilat ischial tuberosities and medial aspects of both upper thighs. Affected areas are erythematous and denuded. R Heel is boggy with non-blanchable erythema. L Heel is boggy with non-blanchable erythema. Tx.Plan:Cleanse Sacral Wound with Dakin's 0.125% Tawanna. Loosely Pack Wound with Dakin's moistened Kerlix. Apply Moisture Barrier Paste periwound. Cover with Optifoam drsg Daily and prn. Apply Moisture Barrier Paste to Perineum and Medial aspects of both upper thighs with each Incontinence care. Apply Cavilon Skin Barrier to both heels. Cover each Heel with Optifoam drsg. Change every 7 days and prn. Reposition at least every 2hours or as tolerated. Off-load heels with Pillow. APM/JENNIFER Mattress overlay
--- NOTE | 2020-03-03 14:35 | NUR ---
NURSE NOTES:Bed bath given and new linens provided.
--- NOTE | 2020-03-03 15:48 | NUR ---
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 49 y/o female BIBGil from [facility] CC: Altered LOC and Hypotension, trach/vent dependent SI: Anemia, Trach/vent dependent, hyponatremia T-98.8, HR 76, RR 19, BP 80/40 ABG PH 7.119, PO2 37.7, Hco3 14.1, O2 saturation 49.9, ABC base excess -13.4 AC 14, PEEP 5, TV 500, FiO2 100, O2 sat 100% WBC 30.6, HGB 1.9, HCT 6.3, NA+ 116, K+ 5.5, BUN 217, Creatinine 4.6, Magnesium 3.3,troponin 0.086 U/A Leukocyte esterase 3+, WBC 40-60 cxray-left lung atelectasis and consolidation IS: NACL bolus metronidazole IV Packed Red Blood Cells- 2 units Admit to Step Down Unit Step Down Status DCP: pending hospitalization, from [facility]
[2020-03-03 18:54] LABS: HEMATOCRIT 15.8 % (37.0-47.0); MEAN CORPUSCULAR VOLUME 85 FL (80-99); PLATELET COUNT 244 K/UL (150-450); RED BLOOD COUNT 1.86 M/UL (4.20-5.40); RED CELL DISTRIBUTION WIDTH 14.9 % (11.6-14.8)
[2020-03-03 18:57] LABS: HEMOGLOBIN 5.2 G/DL (12.0-16.0); WHITE BLOOD COUNT 32.6 K/UL (4.8-10.8)
[2020-03-03 19:12] LABS: CALCIUM 8.2 MG/DL (8.5-10.1); CREATININE 4.6 MG/DL (0.55-1.30)
--- NOTE | 2020-03-03 19:21 | NUR ---
NURSE NOTES: Received report from ERASMO Herrera. Pt asleep in bed, afebrile. In no apparent cardiac and respiratory distress noted. On trach to vent Shiley 7 ,AC 14, TV 500, Fio2 100%, Peep of 5 saturating at 100%. With Gtube in place, intact patent and flushed well, with residual of 20 ml. With left AC #22G running hypotonic soln @ 30cc/hr , right foot #24g and R hand #22.IV lines intact, patent and asymptomatic. With FC to urine bag drain light yellow urine. HOB elevated. Safety measures in place , Call light within reach. Bed rails are up and wheels are locked. Will continue plan of care
--- NOTE | 2020-03-03 19:24 | NUR ---
NURSE HAND-OFF REPORT: Important Events on Shift:Patient BP low, new orders received for Midodrine, patient also received 1L bolus and 100ML of Albumin earlier in the shift. Patient hemoglobin also dropped from 7.1 to 5.1. Patient Status:Guarded Diet: Nepro@ 30ML/HR with goal of 45ML/HR Pending Orders: Stool OB pending. Pending Results/Labs:hemoglobin dropped. Awaiting MD response. Pending MD notification: Latest Vital Signs: Temperature 97.8 , Pulse 86 , B/P 95 /44 , Respiratory Rate 14 , O2 SAT 100 , Mechanical Ventilator, O2 Flow Rate . Vital Sign Comment: EKG Rhythm: Sinus Rhythm Rhythm change?: N MD Notified?: - MD Response: Latest [place] Fall Score: 35 Fall Risk: Medium Risk Safety Measures: Call light Within Reach, Bed Alarm Zone 1, Side Rails Side Rails x2, Bed position Low and Locked. Fall Precautions: Yellow Socks Report given to ERASMO Girard.
--- NOTE | 2020-03-03 19:31 | NUR ---
NURSE NOTES: Called and left a message to Gil Olivares regarding the critical lab result of wbc 32.6 and hgb of 5.2. Waiting for call back.
--- NOTE | 2020-03-03 19:57 | NUR ---
NURSE NOTES: Dr Dong called back and order to transfuse 2 units of Prbc, consult with Dr Mccauley, and give protonix 20mg q12h. Will carry orders
--- NOTE | 2020-03-03 19:59 | NUR ---
NURSE NOTES: Per Dr Dong to DC feeding and consult with Dr Mccauley. Will carry the order.
--- NOTE | 2020-03-03 20:55 | NUR ---
NURSE NOTES: Per Hd nurse she will come tomorrow to the dialysis. Refused to do it tonight as the blood pressure is low and pt is due for blood transfusion.
--- NOTE | 2020-03-03 21:00 | History and Physical Report ---
DATE OF ADMISSION: 03/02/2020 This is one of multiple admissions to [facility] of this 49 years old lady because of septic shock, severe anemia with hemoglobin of 1.9, and Gram-positive cocci bacteremia. HISTORY OF PRESENT ILLNESS: The patient was discharged less than 2 weeks ago to [facility] and has been in relatively stable condition for the last 12 days. She underwent twice a week BMP that she does not get dehydrated. However, 4 days prior to the present admission, she was found to have a BUN of 87, creatinine is 2.2. She was placed on D5W at 80 mL/hour. Repeat BMP revealed that the BUN and creatinine increased while her hemoglobin and hematocrit remained relatively stable without leukocytosis. The D5W was increased to 125 mL/hour. Within 24 hours, the patient's mental status changed. She developed fever, tachycardia, and transferred by channel opener to [facility] ER. Assessment in the ER revealed that the patient now is altered. Her CBC revealed a hemoglobin of 1.9 and hematocrit of 6.3. She received 3 units of packed RBC and was placed on broad-spectrum IV antibiotics, received IV fluids of normal saline and the patient was admitted. PAST MEDICAL HISTORY: Surgery, the patient underwent coronary artery bypass, tracheostomy, and gastrostomy more than 3 years ago after an episode of coronary artery disease. She became shortly after that respirator dependent, was intubated and placed on mechanical ventilation. She was unable to be weaned and had tracheostomy, gastrostomy, and referred to subacute unit. 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 She continued to be a subacute unit patient. She had a prolonged admission to [facility] within July to September last year, which was due to multiorgan failure and tracheal bleeding. Again, she was successfully resuscitated, regained conscious, her pneumonia resolved. She underwent tracheostomy repair at [facility] and has been relatively stable until January 2020 when she was admitted here last time and discharged less than 2 weeks ago. ALLERGIES: No known allergy. MEDICATIONS: The patient is on atorvastatin 10 mg daily, vitamin D 5000 units daily. She is on chlorhexidine gluconate for oral cleansing. She is on 10 mg 3 times daily for blood pressure below 95. She is on sodium chloride 500 mL. She is on meropenem 500 mg q.12h., vancomycin 1 g with dosage of as needed. She is on heparin 5000 units subcutaneously q.12h. She is on omeprazole 20 mg q.12h. She was on metoprolol and isosorbide, however, those medications are now discontinued. She is on aspirin 81 mg daily, acetaminophen, multiple medications for motility disorder on a p.r.n. basis. She is on hydralazine 25 mg q.6h., hydrocodone 5/325 q.8h. p.r.n. for pain. FAMILY HISTORY: Noncontributory. SOCIAL HISTORY: She is single. She was born in [place]. She has been on SSI for many years because of chronic psychosis. Prior to the appearance of her total disability, she was unemployed as well. HABITS: The patient did smoke one pack a day for more than 20 years. She denied drinking. Denies the use of illicit drugs. She was on a high dose of narcotic analgesic for many years that include Dilaudid and morphine alternatively. All these medications have been stopped in the last admission. She is now only on [place]. REVIEW OF SYSTEMS: The patient is unable to give any information regarding her state of health. PHYSICAL EXAMINATION: VITAL SIGNS: Blood pressure is 95/44, pulse is 96, respirations are 14, temperature 97.8. HEENT: Eyes were normal. Pupils were round, equal, and reactive to light. Sclerae was white. Conjunctiva was pale. Extraocular movements were normal. Temporal arteries were palpable bilaterally. There was bilateral temporal wasting. Visual cervantes to confrontation and neglect sign could not be assessed. ENT, mucous membranes were dehydrated. Auditory canals were clear and tympanic membranes could not be visualized. Nasal cavity was not congested. Nasal septum was intact. Soft palate. Pharynx and uvula could not be visualized. Tongue was dry, midline, and normally papillated. NECK: Supple. There was no goiter, no mass, no lymphadenopathy. There was no JVD. No bruits. Carotid upstroke was 1+. LUNGS: Clear with decreased breath sounds in both bases. HEART: PMI was fifth left intercostal space midclavicular line. There was normal S1 and normal S2. There was no murmur. No arrhythmia. No S3. No S4. No pericardial rub. Surprisingly, in spite of the low hemoglobin and hematocrit, her heart rate was not tachycardic. ABDOMEN: Soft, nontender without organomegaly. There were no masses palpable. Normal bowel sounds without bruit. There was no guarding. No rebound tenderness. No ascites. No hernia. No CVA tenderness. Liver span was 8 cm, mostly nontender. EXTREMITIES: No cyanosis, no clubbing, and no edema. Extremities were warm. NEUROLOGICAL: Reflexes in biceps, triceps, and brachioradialis were present. Patellar retinaculum was difficult to obtain. Plantar were in flexion. Cranial nerves II through XII were symmetric and equal. Cerebellar function, there was no tremor. No nystagmus. No extrapyramidal rigidity. Sensory exam to pinprick, cotton touch, position, and motor strength could not be assessed because of the patient's clinical status. LABORATORY AND DIAGNOSTIC DATA: Hemoglobin was 1.9, hematocrit was 6.3 with MCV of 91, WBC of 13.6, and platelets of 252. After few hours in the ER, her hemoglobin was 5.1 and hematocrit was 16.3, WBC of 14.2, and platelets were 246. Since then, the patient received 3 units of packed RBC. Her hemoglobin now is 7.1, hematocrit is 20.6 with MCV of 85, WBC of 27.4, and platelets of 265. Her BUN and creatinine is 224 and 4.4 respectively. Her sodium is 122, potassium 4.4, chloride 97, CO2 is 67. IMPRESSION: 1. The patient has multiple medical issues and multiple consultants were called to assist in the management of this case. 2. The patient has severe anemia due to secondary to gastrointestinal bleed. Hematology network consultant was called to assist in the management of this case. Infectious Disease network consultant was called to assist in management of this case. Nephrology network consultant was called to assist in the management of this case, and general surgeon was called as well to deal with the patient's sacral ischemic ulcer. Filter Helper was called to assist in the management of this case today. Repeat laboratory tests will be done in the a.m. The patient now was found to have rectal bleeding with black and tarry stool color. CBC, BMP will be done stat. If necessary, the patient will be transfused again. An order for laboratory tests in the a.m. was already done. Lucas Dong M.D. DR: RENETTA JOB#: [id number] CC:
[2020-03-03] MEDS: Dyna-Hex 2% Top Sol 2oz TOPIC SCH (21:23)
[2020-03-03] MEDS: Pantoprazole Inj IVP SCH (21:23)
[2020-03-03] MEDS ORDERED: [UNRECOGNIZED DRUG - OTHER] IV (21:26)
[2020-03-03] MEDS ORDERED: COLLAGENASE1 EACH TP (21:26)
[2020-03-03] MEDS ORDERED: IBUPROFEN600 M1 GT (21:26)
[2020-03-03] MEDS ORDERED: TRIAMCINOLONE A15 G1 TP (21:26)
[2020-03-03] MEDS ORDERED: ZINC SULFATE220 M1 GT (21:26)
--- NOTE | 2020-03-03 21:35 | NUR ---
NURSE NOTES: Hang 1st bag of PRBC, vital signs checked, wnl. Will continue to monitor
--- NOTE | 2020-03-03 21:55 | NUR ---
NURSE NOTES: No signs of Allergic reactions noted 15 mins after start. Vital signs check bp 107/41, temp 98.4, HR 79, RR 21 , O2 sat 100%. Will continue to monitor.
--- NOTE | 2020-03-03 23:45 | NUR ---
NURSE NOTES: 1st bag of PRBC transfused. Vital signs check, wnl. No signs of allergic reaction noted.
--- NOTE | 2020-03-03 23:47 | NUR ---
NURSE NOTES: started 2nd bag of PRBC. Vital signs checked, wnl. No fever noted. Will continue to monitor
[2020-03-04] VITALS: BP 107/51
--- NOTE | 2020-03-04 02:45 | NUR ---
NURSE NOTES: Transfused 2nd bag of prbc. Vital signs post trasfusion as follows bp 101/44, temp 98.4, hr 80, rr 19, O2 sat 100%. NO allergic reaction noted. Pt in stable condition. Will continue to monitor.
[2020-03-04 04:00] VITALS: BP 125/55
[2020-03-04 06:02] LABS: HEMATOCRIT 21.1 % (37.0-47.0); HEMOGLOBIN 7.1 G/DL (12.0-16.0); MEAN CORPUSCULAR VOLUME 87 FL (80-99); PLATELET COUNT 245 K/UL (150-450); RED BLOOD COUNT 2.43 M/UL (4.20-5.40); RED CELL DISTRIBUTION WIDTH 14.2 % (11.6-14.8)
[2020-03-04 06:12] LABS: INR 1.5 (0.9-1.1)
[2020-03-04 06:19] LABS: WHITE BLOOD COUNT 30.1 K/UL (4.8-10.8)
--- NOTE | 2020-03-04 06:23 | NUR ---
NURSE NOTES: Notified Dr Dong regarding WBC of 30.1 this am and hgb of 7.1. Awaiting response.
[2020-03-04 06:27] LABS: ALBUMIN 1.9 G/DL (3.4-5.0); ALBUMIN/GLOBULIN RATIO 0.5 (1.0-2.7); BILIRUBIN,TOTAL 0.4 MG/DL (0.2-1.0); CALCIUM 7.6 MG/DL (8.5-10.1); CREATININE 4.6 MG/DL (0.55-1.30)
[2020-03-04 06:32] LABS: PHOSPHORUS 5.1 MG/DL (2.5-4.9)
--- NOTE | 2020-03-04 06:55 | NUR ---
NURSE NOTES: Dr Muhammad came by and informed recent lab result of the pt. Md ordered to transfuse 1 more PRBC. Will carry the order and endorse to am shift.
--- NOTE | 2020-03-04 07:20 | NUR ---
NURSE NOTES: Received report from ERASMO Ross. Pt is lying on bed, obtunded but communicates via facial expression and body movement. Trach to vent on the following setting AC 14, TV 500, PEEP 5, FiO2 40 with O2 sat 96-100%. Perma cath in R upper chest is intact and patent. No bleeding noted. G-Tube is intact and patent. Pt in NPO. Sacral st IV is noted and dressing intact. Peripheral IVs are intact and patent. Recent labs, medications and MD orders reviewed. Bed is locked and in lowest position, bed alarm on, call light is with the pt. Will continue to monitor the pt. Will continue with the plan of care.
--- NOTE | 2020-03-04 07:34 | NUR ---
NURSE HAND-OFF REPORT: Important Events on Shift: Stable. Transfuse 1 more PRBC. Patient Status: Fair Diet: NPO Pending Orders: Pending Results/Labs: Pending MD notification: Latest Vital Signs: Temperature 98.8 , Pulse 82 , B/P 125 /55 , Respiratory Rate 21 , O2 SAT 98 , Mechanical Ventilator, O2 Flow Rate . Vital Sign Comment: Stable EKG Rhythm: Sinus Rhythm Rhythm change?: N MD Notified?: - MD Response: Latest [place] Fall Score: 35 Fall Risk: Medium Risk Safety Measures: Call light Within Reach, Bed Alarm Zone 1, Side Rails Side Rails x2, Bed position Low and Locked. Fall Precautions: Yellow Socks Report given to ERASMO Mcgovern .
--- NOTE | 2020-03-04 07:36 | Hematology/Onc Progress Note ---
Assessment/Plan Assessment/Plan Imaging: noted Assessment and Recs # Leukocytosis, now with likely bacteremia, as per ID care --> Cxr: : Large left abiola consolidation/effusion --> wbc 30-->40-->27->30 --> ABX angelo/vanc --> ID recs are noted # Anemia of chronic disease due to underlying chronic medical issues, multifactorial --> Anemia workup has been reviewed, cw acd --> No evidence of hemolysis is noted, peripheral smear has been reviewed. --> Hgb goal >7. Transfuse prn. --> Epogen required in prior --> Medications have been reviewed --> low threshold for gi evaluation in case has occult + --> hgb 1.9-->5-->7.1 --> 1 unit prbc1/, 2 units 01/15, 03/02 --> gi eval as needed # Coagulopathy with inr 1.5 --> consider vit k/ffp as needed preprocedure --> labs noted # JAVIER initially >2 --> on ivfs --> per renal # Elevated d-dimer, likely infection related --> venous duplex prior neg --> in prior neg # Dysphagia s/p peg --> as per gi # Thoracic aortic dissection --> s/p repair early 2017 # Chronic Resp failure -> s/p trach/vent # Psychiatric history on ativan/haldol # [place] resident # Dvt ppx --> scds The timing of this note does not necessarily reflect the time of the patient was seen. Greatly appreciate consultation. Subjective Constitutional: Denies: no symptoms, chills, fever, malaise, weakness, other HEENT: Denies: no symptoms, eye pain, blurred vision, tearing, double vision, ear pain, ear discharge, nose pain, nose congestion, throat pain, throat swelling, mouth pain, mouth swelling, other Cardiovascular: Denies: no symptoms, chest pain, edema, irregular heart rate, lightheadedness, palpitations, syncope, other Respiratory: Denies: no symptoms, cough, shortness of breath, SOB with excertion, SOB at rest, sputum, wheezing, other Neurologic/Psychiatric: Denies: no symptoms, anxiety, depressed, emotional problems, headache, numbness, paresthesia, pre-existing deficit, seizure, tingling, tremors, weakness, other Endocrine: Denies: no symptoms, excessive sweating, flushing, intolerance to cold, intolerance to heat, increased hunger, increased thirst, increased urine, unexplained weight gain, unexplained weight loss, other Hematologic/Lymphatic: Denies: no symptoms, anemia, easy bleeding, easy bruising, adenopathy, other Allergies: Coded Allergies: No Known Allergies (Unverified , 10/10/17) Subjective 03/04 for 1 unit transfusion this am as hgb remains low, wbc better Objective Objective Current Medications Medications (Trade) Dose Ordered Sig/Penny Route PRN Reason Start Time Stop Time Status Last Admin Dose Admin Acetaminophen (Tylenol) 650 mg Q6H PRN GT Mild Pain (Pain Scale 1-3) 03/02/20 22:30 04/01/20 22:29 Acetaminophen (Tylenol) 650 mg Q6H PRN GT Temp >100.5 03/03/20 03:00 04/01/20 22:29 Acetaminophen/ Hydrocodone Bitart (Spicer 5/325) 1 tab Q6H PRN GT Severe Pain (Pain Scale 7-10) 03/02/20 22:00 03/09/20 21:59 Aspirin (ASA) 81 mg DAILY GT 03/03/20 09:00 04/17/20 08:59 03/03/20 09:31 Atorvastatin Calcium (Lipitor) 10 mg BEDTIME GT 03/03/20 21:00 06/01/20 20:59 03/03/20 21:23 Chlorhexidine Gluconate (Ling-Hex 2%) 1 applic DAILY@1999 TOPIC 03/03/20 20:00 06/01/20 19:59 03/03/20 21:23 Heparin Sodium (Porcine) (Heparin 5000 units/ml) 5,000 units EVERY 12 HOURS SUBQ 03/03/20 09:00 04/17/20 08:59 Hydralazine HCl (Apresoline) 25 mg Q6H PRN GT For High Blood Pressure 03/02/20 22:00 05/31/20 21:59 Lactulose (Cephulac) 20 gm THREE TIMES A DAY PRN GT Constipation 03/02/20 22:00 04/01/20 21:59 Meropenem 500 mg/ Sodium Chloride 55 ml @ 110 mls/hr Q12H IVPB 03/03/20 10:00 03/08/20 09:59 03/03/20 21:25 Midodrine (Pro-Amatine) 10 mg THREE TIMES A DAY GT 03/03/20 13:09 06/01/20 12:59 03/03/20 17:10 Pantoprazole (Protonix) 20 mg EVERY 12 HOURS IVP 03/03/20 21:00 04/02/20 20:59 03/03/20 21:23 Polyethylene Glycol (Miralax) 17 gm BEDTIME PRN GT Constipation 03/02/20 22:00 04/01/20 21:59 Sodium Hypochlorite (Dakin's Quarter Strength) 1 applic DAILY TOPIC 03/04/20 09:00 04/03/20 08:59 Vancomycin HCl ([facility] pharmacy to dose) 1 ea DAILY PRN MISC Per rx protocol 03/03/20 09:15 04/02/20 09:14 Last 24 Hour Vital Signs Date Time Temp Pulse Resp B/P (MAP) Pulse Ox O2 Delivery O2 Flow Rate FiO2 03/04/20 04:00 98.8 82 21 125/55 (78) 98 03/04/20 04:00 Mechanical Ventilator 03/04/20 04:00 40 03/04/20 03:40 79 28 40 03/04/20 03:11 78 03/04/20 00:00 Mechanical Ventilator 03/04/20 00:00 98.8 81 16 107/51 (69) 100 03/03/20 23:29 77 24 40 03/03/20 23:07 78 03/03/20 20:00 99.0 80 18 97/55 (69) 100 03/03/20 20:00 40 03/03/20 20:00 Mechanical Ventilator 03/03/20 19:56 83 25 40 03/03/20 19:33 83 03/03/20 16:00 97.8 86 14 95/44 (61) 100 03/03/20 16:00 40 03/03/20 16:00 Mechanical Ventilator 03/03/20 15:54 86 03/03/20 15:15 87 25 40 03/03/20 12:00 88 03/03/20 12:00 40 03/03/20 12:00 Mechanical Ventilator 03/03/20 11:41 98.1 86 18 116/70 (85) 100 03/03/20 11:15 86 24 40 03/03/20 11:00 107/45 (65) 03/03/20 09:00 92 76/56 03/03/20 09:00 76/56 03/03/20 09:00 92 76/56 03/03/20 08:38 92 03/03/20 08:00 40 03/03/20 08:00 99.5 96 18 76/56 (63) 100 03/03/20 08:00 Mechanical Ventilator 03/03/20 07:15 100 25 40 03/03/20 04:00 99.5 100 16 102/48 (66) 100 03/03/20 04:00 Mechanical Ventilator 03/03/20 04:00 40 03/03/20 03:53 99 03/03/20 03:35 98 19 40 03/03/20 00:00 Mechanical Ventilator 03/03/20 00:00 40 03/03/20 00:00 98.2 101 16 106/45 (65) 100 03/02/20 23:13 100 03/02/20 22:58 98 14 40 03/02/20 22:24 88 03/02/20 20:38 Mechanical Ventilator 03/02/20 20:24 60 03/02/20 19:36 85 20 100 03/02/20 18:56 98.8 87 19 98/41 100 Mechanical Ventilator 100 03/02/20 18:40 98.8 87 19 98/41 100 Mechanical Ventilator 03/02/20 15:26 98.8 78 19 98/35 100 Mechanical Ventilator 03/02/20 14:16 78 19 100 03/02/20 13:30 98.8 75 18 99/37 100 Mechanical Ventilator 03/02/20 11:28 98.8 73 19 80/34 100 Mechanical Ventilator 03/02/20 11:04 71 19 100 03/02/20 10:15 71 19 Mechanical Ventilator 03/02/20 10:11 98.8 71 19 90/61 100 Mechanical Ventilator 03/02/20 09:25 98.8 76 19 80/4 (29) 100 Mechanical Ventilator Intake and Output 03/03/20 03/04/20 19:00 07:00 Intake Total 683.5 ml 240 ml Output Total 150 ml 100 ml Balance 533.5 ml 140 ml Intake Free Water 200 ml IV Total 193.5 ml 240 ml Tube Feeding 290 ml Output Urine Total 150 ml 100 ml # Bowel Movements 2 4 Labs Test 03/02/20 10:00 03/02/20 10:40 03/02/20 10:50 03/02/20 16:30 Urine Color Pale yellow Urine Appearance Cloudy Urine pH 8 (4.5-8.0) Urine Specific [place] 1.010 (1.005-1.035) Urine Protein 3+ (NEGATIVE) Urine Glucose (UA) Negative (NEGATIVE) Urine Ketones 1+ (NEGATIVE) Urine Blood 5+ (NEGATIVE) Urine Nitrite Negative (NEGATIVE) Urine Bilirubin Negative (NEGATIVE) Urine Urobilinogen Normal MG/DL (0.0-1.0) Urine Leukocyte Esterase 3+ (NEGATIVE) Urine RBC 15-20 /HPF (0 - 2) Urine WBC 40-60 /HPF (0 - 2) Urine Squamous Epithelial Cells Few /LPF (NONE/OCC) Urine Calcium Oxalate Crystals Occasional /LPF (NONE) Urine Amorphous Sediment Many /LPF (NONE) Urine Bacteria Many /HPF (NONE) Stool Occult Blood Positive (NEGATIVE) Arterial Blood pH 7.119 (7.350-7.450) Arterial Blood Partial Pressure CO2 44.4 mmHg (35.0-45.0) Arterial Blood Partial Pressure O2 37.7 mmHg (75.0-100.0) Arterial Blood HCO3 14.1 mmol/L (22.0-26.0) Arterial Blood Oxygen Saturation 49.9 % (95-100) Arterial Blood Base Excess -13.4 (-2-2) Rojas Test Positive White Blood Count 30.6 K/UL (4.8-10.8) 40.2 K/UL (4.8-10.8) Red Blood Count 0.69 M/UL (4.20-5.40) 1.82 M/UL (4.20-5.40) Hemoglobin 1.9 G/DL (12.0-16.0) 5.1 G/DL (12.0-16.0) Hematocrit 6.3 % (37.0-47.0) 16.3 % (37.0-47.0) Mean Corpuscular Volume 91 FL (80-99) 89 FL (80-99) Mean Corpuscular Hemoglobin 28.0 PG (27.0-31.0) 28.2 PG (27.0-31.0) Mean Corpuscular Hemoglobin Concent 30.7 G/DL (32.0-36.0) 31.5 G/DL (32.0-36.0) Red Cell Distribution Width 18.0 % (11.6-14.8) 14.5 % (11.6-14.8) Platelet Count 252 K/UL (150-450) 246 K/UL (150-450) Mean Platelet Volume 6.1 FL (6.5-10.1) 5.8 FL (6.5-10.1) Neutrophils (%) (Auto) % (45.0-75.0) % (45.0-75.0) Lymphocytes (%) (Auto) % (20.0-45.0) % (20.0-45.0) Monocytes (%) (Auto) % (1.0-10.0) % (1.0-10.0) Eosinophils (%) (Auto) % (0.0-3.0) % (0.0-3.0) Basophils (%) (Auto) % (0.0-2.0) % (0.0-2.0) Differential Total Cells Counted 100 100 Neutrophils % (Manual) 88 % (45-75) 69 % (45-75) Lymphocytes % (Manual) 6 % (20-45) 5 % (20-45) Monocytes % (Manual) 6 % (1-10) 4 % (1-10) Eosinophils % (Manual) 0 % (0-3) 0 % (0-3) Basophils % (Manual) 0 % (0-2) 0 % (0-2) Band Neutrophils 0 % (0-8) 20 % (0-8) Platelet Estimate Adequate Adequate Platelet Morphology Normal Normal Hypochromasia 3+ 3+ Anisocytosis 1+ 1+ Sodium Level 116 MMOL/L (136-145) Potassium Level 5.5 MMOL/L (3.5-5.1) Chloride Level 83 MMOL/L (98-107) Carbon Dioxide Level 13 MMOL/L (21-32) Anion Gap 20 mmol/L (5-15) Blood Urea Nitrogen 217 mg/dL (7-18) Creatinine 4.6 MG/DL (0.55-1.30) Estimat Glomerular Filtration Rate 10.2 mL/min (>60) Glucose Level 107 MG/DL (74-106) Calcium Level 8.8 MG/DL (8.5-10.1) Phosphorus Level 5.0 MG/DL (2.5-4.9) Magnesium Level 3.3 MG/DL (1.8-2.4) Total Bilirubin 0.3 MG/DL (0.2-1.0) Aspartate Amino Transf (AST/SGOT) 56 U/L (15-37) Alanine Aminotransferase (ALT/SGPT) 23 U/L (12-78) Alkaline Phosphatase 105 U/L (46-116) Total Creatine Kinase 86 U/L (26-308) Creatine Kinase MB 5.2 NG/ML (0.0-3.6) Creatine Kinase MB Relative Index 6.0 Troponin I 0.086 ng/mL (0.000-0.056) Pro-B-Type Natriuretic Peptide > 79196 pg/mL (0-125) Total Protein 5.4 G/DL (6.4-8.2) Albumin 1.6 G/DL (3.4-5.0) Globulin 3.8 g/dL Albumin/Globulin Ratio 0.4 (1.0-2.7) Lipase 266 U/L (73-393) Prothrombin Time 15.0 SEC (9.30-11.50) Prothromb Time International Ratio 1.4 (0.9-1.1) Activated Partial Thromboplast Time 26 SEC (23-33) Lactic Acid Level 4.50 mmol/L (0.4-2.0) 3.00 mmol/L (0.66-2.22) Metamyelocytes % 1 % (0-0) Myelocytes % 1 % (0-0) [place] Cells 1+ Test 03/03/20 04:24 03/03/20 04:30 03/03/20 17:50 03/03/20 18:45 White Blood Count 27.4 K/UL (4.8-10.8) 32.6 K/UL (4.8-10.8) Red Blood Count 2.42 M/UL (4.20-5.40) 1.86 M/UL (4.20-5.40) Hemoglobin 7.1 G/DL (12.0-16.0) 5.2 G/DL (12.0-16.0) Hematocrit 20.6 % (37.0-47.0) 15.8 % (37.0-47.0) Mean Corpuscular Volume 85 FL (80-99) 85 FL (80-99) Mean Corpuscular Hemoglobin 29.2 PG (27.0-31.0) 27.9 PG (27.0-31.0) Mean Corpuscular Hemoglobin Concent 34.4 G/DL (32.0-36.0) 32.8 G/DL (32.0-36.0) Red Cell Distribution Width 14.2 % (11.6-14.8) 14.9 % (11.6-14.8) Platelet Count 265 K/UL (150-450) 244 K/UL (150-450) Mean Platelet Volume 5.7 FL (6.5-10.1) 4.9 FL (6.5-10.1) Neutrophils (%) (Auto) % (45.0-75.0) % (45.0-75.0) Lymphocytes (%) (Auto) % (20.0-45.0) % (20.0-45.0) Monocytes (%) (Auto) % (1.0-10.0) % (1.0-10.0) Eosinophils (%) (Auto) % (0.0-3.0) % (0.0-3.0) Basophils (%) (Auto) % (0.0-2.0) % (0.0-2.0) Differential Total Cells Counted 100 100 Neutrophils % (Manual) 85 % (45-75) 73 % (45-75) Lymphocytes % (Manual) 3 % (20-45) 6 % (20-45) Monocytes % (Manual) 4 % (1-10) 2 % (1-10) Eosinophils % (Manual) 0 % (0-3) 0 % (0-3) Basophils % (Manual) 0 % (0-2) 0 % (0-2) Myelocytes % 1 % (0-0) Band Neutrophils 7 % (0-8) 19 % (0-8) Platelet Estimate Adequate Adequate Platelet Morphology Normal Normal Red Blood Cell Morphology Normal Polychromasia 1+ 1+ Hypochromasia 1+ Anisocytosis 1+ 2+ Sodium Level 122 MMOL/L (136-145) 129 MMOL/L (136-145) Potassium Level 4.4 MMOL/L (3.5-5.1) 4.0 MMOL/L (3.5-5.1) Chloride Level 87 MMOL/L (98-107) 95 MMOL/L (98-107) Carbon Dioxide Level 16 MMOL/L (21-32) 14 MMOL/L (21-32) Anion Gap 19 mmol/L (5-15) 20 mmol/L (5-15) Blood Urea Nitrogen 224 mg/dL (7-18) 246 mg/dL (7-18) Creatinine 4.4 MG/DL (0.55-1.30) 4.6 MG/DL (0.55-1.30) Estimat Glomerular Filtration Rate 10.8 mL/min (>60) 10.2 mL/min (>60) Glucose Level 67 MG/DL (74-106) 89 MG/DL (74-106) Hemoglobin A1c 5.4 % (4.3-6.0) Uric Acid 8.4 MG/DL (2.6-7.2) Calcium Level 8.7 MG/DL (8.5-10.1) 8.2 MG/DL (8.5-10.1) Phosphorus Level 3.6 MG/DL (2.5-4.9) Magnesium Level 3.0 MG/DL (1.8-2.4) Total Bilirubin 0.3 MG/DL (0.2-1.0) Direct Bilirubin 0.2 MG/DL (0.0-0.3) Aspartate Amino Transf (AST/SGOT) 65 U/L (15-37) Alanine Aminotransferase (ALT/SGPT) 27 U/L (12-78) Alkaline Phosphatase 127 U/L (46-116) Total Protein 6.4 G/DL (6.4-8.2) Albumin 1.9 G/DL (3.4-5.0) Urine Random Sodium 36 mmol/L (20-110) Poikilocytosis 1+ [place] Cells 2+ Test 03/04/20 05:00 White Blood Count 30.1 K/UL (4.8-10.8) Red Blood Count 2.43 M/UL (4.20-5.40) Hemoglobin 7.1 G/DL (12.0-16.0) Hematocrit 21.1 % (37.0-47.0) Mean Corpuscular Volume 87 FL (80-99) Mean Corpuscular Hemoglobin 29.2 PG (27.0-31.0) Mean Corpuscular Hemoglobin Concent 33.7 G/DL (32.0-36.0) Red Cell Distribution Width 14.2 % (11.6-14.8) Platelet Count 245 K/UL (150-450) Mean Platelet Volume 5.5 FL (6.5-10.1) Neutrophils (%) (Auto) % (45.0-75.0) Lymphocytes (%) (Auto) % (20.0-45.0) Monocytes (%) (Auto) % (1.0-10.0) Eosinophils (%) (Auto) % (0.0-3.0) Basophils (%) (Auto) % (0.0-2.0) Prothrombin Time 15.8 SEC (9.30-11.50) Prothromb Time International Ratio 1.5 (0.9-1.1) Activated Partial Thromboplast Time 31 SEC (23-33) Sodium Level 132 MMOL/L (136-145) Potassium Level 4.0 MMOL/L (3.5-5.1) Chloride Level 97 MMOL/L (98-107) Carbon Dioxide Level 12 MMOL/L (21-32) Anion Gap 23 mmol/L (5-15) Blood Urea Nitrogen 244 mg/dL (7-18) Creatinine 4.6 MG/DL (0.55-1.30) Estimat Glomerular Filtration Rate 10.2 mL/min (>60) Glucose Level 71 MG/DL (74-106) Lactic Acid Level 0.40 mmol/L (0.4-2.0) Uric Acid 10.0 MG/DL (2.6-7.2) Calcium Level 7.6 MG/DL (8.5-10.1) Phosphorus Level 5.1 MG/DL (2.5-4.9) Magnesium Level 2.8 MG/DL (1.8-2.4) Total Bilirubin 0.4 MG/DL (0.2-1.0) Gamma Glutamyl Transpeptidase 13 U/L (5-85) Aspartate Amino Transf (AST/SGOT) 40 U/L (15-37) Alanine Aminotransferase (ALT/SGPT) 20 U/L (12-78) Alkaline Phosphatase 116 U/L (46-116) Lactate Dehydrogenase 209 U/L (81-234) C-Reactive Protein, Quantitative 18.6 mg/dL (0.00-0.90) Pro-B-Type Natriuretic Peptide > 78554 pg/mL (0-125) Total Protein 5.7 G/DL (6.4-8.2) Albumin 1.9 G/DL (3.4-5.0) Globulin 3.8 g/dL Albumin/Globulin Ratio 0.5 (1.0-2.7) Amylase Level 141 U/L (25-115) Lipase 660 U/L (73-393) Height (Feet): 5 Height (Inches): 3.00 Weight (Pounds): 128 Objective Physical Exam: Vitals: reviewed General: NAD HEENT: nc, at Neck: supple ++trach/vent Chest: clear breath sounds bilaterally Cardiovascular: RRR, no s3, s4 Abdomen: soft, nontender, nd +gtube Extremities: no cce, normal range of motion Neuro: alert Evan Muhammad MD Mar 04, 2020 07:36
[2020-03-04 08:00] VITALS: BP 104/51
[2020-03-04] MEDS: Heparin 5000 units/ml inj SUBQ SCH (08:51)
[2020-03-04] MEDS: Aspirin Baby 81mg GT SCH ×3 (08:56→09:05)
[2020-03-04] MEDS: Pantoprazole Inj IVP SCH ×2 (09:00→20:46)
[2020-03-04] MEDS: Dakin's 0.125% Soln (Quarter Strength) 16oz TOPIC SCH (09:00)
--- NOTE | 2020-03-04 09:27 | Infectious Diseases Prog Note ---
Assessment/Plan 49yo F with: AMS Anemia to 1.9 on admission 03/02 Leukocytosis to 40 GPC bacteremia Possible UTI Possible pna Hypotension 03/02 BCx +GPC UA+, UCx >100k GNRs COVID rapid neg, PCR p CXR: Tracheostomy again demonstrated. Interim placement of a right jugular tunneled dialysis catheter. There is infiltrate and volume loss in the left lung, particularly in the perihilar region, suprahilar region, and base. Consolidation at the lung base is similar. The perihilar and suprahilar region consolidation is new. The right lung pleural space are clear. C.dif neg 03/03 BCx p AF Sepsis Leukocytosis Hypoxia on vent Pneumonia c/b L pleural effusion (recurrent, prior determined to be transudative) - s/p thora 01/21, 1050cc removed Volume overload, BNP >35,0000, likely 2/2 progressive CKD --> ESRD ?Pancreatitis, Lipase >2000 Acute anemia to 5s CONS bacteremia, ?contaminant Aflutter w/ RVR 01/13 BCx 2/2 +S. epi COVID PCR neg Flu neg CXR: Large left pleural effusion. Bilateral interstitial and airspace infiltrates versus edema MRSA nares neg 01/16 BCx NTD 01/17 BCx /2 +Staph auricularis (skin colonizer) 01/18 Resp cx +MDR CRE PsA (S-gent, I-colistin, R-polyB) 01/18 C.dif neg 01/18 CXR: Similar opacification of the left hemithorax likely representing combination of pleural effusion with atelectasis versus pneumonia/edema. Decreased but persistent hazy opacity throughout the right lung may represent edema versus infectious/inflammatory process. 01/20 BCx NTD 01/21 L thora 1050 cc removed, cx NTD 01/25 Wound cx from Gtube site +CRE Kleb pna (arnett-R) and MDR PsA (colonizers) 01/26 CT A/P: Limited exam, due to severe diffuse anasarca. Ascites. Bilateral pleural effusions. Basilar pulmonary atelectatic changes and consolidation. Gastrostomy. Atrophic left kidney with a nephroureteral stents again demonstrated. Possible retrococcygeal decubitus changes. Correlate with clinical findings, consider MRI if there is concern for sacral osteomyelitis. Right hip intertrochanteric fracture, also previously demonstrated. Left femoral dialysis catheter. Nonspecific right lobe liver lesion is unchanged, not well- demonstrated. ctasia bordering on aneurysmal dilatation and possible chronic dissection of the distal thoracic aorta, also previously described. JAVIER on CKD On previous admission Oct 2019 required HD for short period Going to start HD this admission again R/o COVID 01/14 COVID PCR neg 12/29 neg at [facility] per report H/o UTI 11/27 u/a wbc 30-40, nit neg, leuk +3; ucx ESBL P. mirablis, ESBL M. morganii 09/15/19 u/a wbc tnct, nit neg, leuk +3; ucx >100k MDR P. stuarti (S Ceftriaxone, Meropenem) 10/07 u/a wbc tnct, nit neg, leuk ; ucx >100k VRE 10/15/19 u/a wbc tnct; ucx >100k ESBL P. stuarti (S ertapenem, aztreonam) H/o transudative pleural effusion 11/28 Sp Thora (w: 169, PMN: 2%, L: 49% , LDH: 57, prot 2.5); cx Neg H/o PNA 10/15/19 Resp cx ESBL P. mirabilis, MDR P.a. (S only to Gent) 09/22 Resp cx + MDR PsA (S-gent; I-colistin; R-levofloxacin, Zosyn, angelo) 09/16/19 Sp cx ESBL P. mirablis H/o PPM site (pocket) infection and pocket abscess 2ry to S. epi-11/2018, sp >6weeks IV vancomycin 11/27 SP ABBIE: no evidence for vegetation on any of the valves 11/26/18 SP PPM removal: OR findings:The fibrous capsule enclosing the generator was then opened and there was a [id number] amount of yellowish fluid drainage. The generator was then removed.Atrial and ventricular leads were detached. The necrotic tissue of the pocket was then removed and the pocket was flushed with an antibiotic solution. Capsule, wound tissue and lead tip cx: Neg 2d echo: no vegetation seen US chest: 4.6 x 3.4 x 0.9 cm hypoechoic/anechoic area overlying left chest pacemaker power pack. This could represent either a discrete fluid collection or a focal area of very edematous tissue. Infected fluid pocket also possible. 11/18 Bcx 3/4 S. epi; 11/20 Bcx neg; 11/24 Bcx Neg; 11/27 Bcx Neg CAD s/p CABG GERD/gastritis Afib HTN Dysphagia sp GT Aortic dissection s/p repair 2018 S/p PPM Parkinson's Disease Schizophrenia Anxiety COPD Chronic resp failure s/p trach Hx of tracheal bleeding NH resident ([facility]) VRE and MRSA colonized Plan: Cont vanco IV #3 given GPC bacteremia Cont meropenem #3 given possible UTI, pna, hypotension F/u 03/03 repeat BCx F/u BCx 03/02 +GPCs F/u COVID PCR Trend Hg, GIB Trend BP, WBC 01/31 SP angelo/inh tobra #10 for pna 01/23 SP vanco IV #10 given CONS/GPC bacteremia 01/16 SP Zosyn #2 01/14 SP dex 10mg in ED 12/10 SP IV Gentamycin #10 12/07 SP Meropenem #10 12/01 SP IV Vancomycin #5 11/28 Sp Cefepime #2 and IV Gentamycin x1 Monitor CBC/CMP Monitor temp curve, hemodynamics Monitor resp status D/w RN Thank you for this consult. [facility] will continue to follow. Subjective Allergies: Coded Allergies: No Known Allergies (Unverified , 10/10/17) AF WBC stable at 30, overall improved from admission Ongoing dropping Hg, dark stools, +FOBT Still soft BPs Remains on vent Objective Last 24 Hour Vital Signs Date Time Temp Pulse Resp B/P (MAP) Pulse Ox O2 Delivery O2 Flow Rate FiO2 03/04/20 07:44 94 03/04/20 07:05 87 22 40 03/04/20 04:00 98.8 82 21 125/55 (78) 98 03/04/20 04:00 Mechanical Ventilator 03/04/20 04:00 40 03/04/20 03:40 79 28 40 03/04/20 03:11 78 03/04/20 00:00 Mechanical Ventilator 03/04/20 00:00 98.8 81 16 107/51 (69) 100 03/03/20 23:29 77 24 40 03/03/20 23:07 78 03/03/20 20:00 99.0 80 18 97/55 (69) 100 03/03/20 20:00 40 03/03/20 20:00 Mechanical Ventilator 03/03/20 19:56 83 25 40 03/03/20 19:33 83 03/03/20 16:00 97.8 86 14 95/44 (61) 100 03/03/20 16:00 40 03/03/20 16:00 Mechanical Ventilator 03/03/20 15:54 86 03/03/20 15:15 87 25 40 03/03/20 12:00 88 03/03/20 12:00 40 03/03/20 12:00 Mechanical Ventilator 03/03/20 11:41 98.1 86 18 116/70 (85) 100 03/03/20 11:15 86 24 40 03/03/20 11:00 107/45 (65) Height (Feet): 5 Height (Inches): 3.00 Weight (Pounds): 128 Cardiovascular: normal peripheral pulses Gen: NAD HEENT: NCAT, trach Pulm: BL chest rise on vent Abd: Soft, NTND, +PEG Ext: No c/c/e Skin: No visible rashes Neuro: Awake, minimally interactive Microbiology Date/Time Source Procedure Growth Status 03/02/20 10:00 Urine,Clean Catch Urine Culture - Preliminary Gram Negative Arnaud Resulted 03/02/20 10:00 Stool Clostridium difficile Toxin Assay - Final Complete 03/02/20 10:00 Nasopharynx SARS-CoV-2 RdRp Gene Assay - Final Complete 03/02/20 10:00 Blood Blood Culture - Preliminary Resulted 03/02/20 10:00 Blood Blood Culture - Preliminary Gram Positive Cocci Resulted Laboratory Tests Test 03/03/20 17:50 03/03/20 18:45 03/04/20 05:00 Stool Occult Blood Pending White Blood Count 32.6 K/UL (4.8-10.8) *H 30.1 K/UL (4.8-10.8) *H Red Blood Count 1.86 M/UL (4.20-5.40) L 2.43 M/UL (4.20-5.40) L Hemoglobin 5.2 G/DL (12.0-16.0) *L 7.1 G/DL (12.0-16.0) #L Hematocrit 15.8 % (37.0-47.0) L 21.1 % (37.0-47.0) #L Mean Corpuscular Volume 85 FL (80-99) 87 FL (80-99) Mean Corpuscular Hemoglobin 27.9 PG (27.0-31.0) 29.2 PG (27.0-31.0) Mean Corpuscular Hemoglobin Concent 32.8 G/DL (32.0-36.0) 33.7 G/DL (32.0-36.0) Red Cell Distribution Width 14.9 % (11.6-14.8) H 14.2 % (11.6-14.8) Platelet Count 244 K/UL (150-450) 245 K/UL (150-450) Mean Platelet Volume 4.9 FL (6.5-10.1) L 5.5 FL (6.5-10.1) L Neutrophils (%) (Auto) % (45.0-75.0) % (45.0-75.0) Lymphocytes (%) (Auto) % (20.0-45.0) % (20.0-45.0) Monocytes (%) (Auto) % (1.0-10.0) % (1.0-10.0) Eosinophils (%) (Auto) % (0.0-3.0) % (0.0-3.0) Basophils (%) (Auto) % (0.0-2.0) % (0.0-2.0) Differential Total Cells Counted 100 Neutrophils % (Manual) 73 % (45-75) Pending Lymphocytes % (Manual) 6 % (20-45) L Pending Monocytes % (Manual) 2 % (1-10) Eosinophils % (Manual) 0 % (0-3) Basophils % (Manual) 0 % (0-2) Band Neutrophils 19 % (0-8) H Platelet Estimate Adequate Pending Platelet Morphology Normal Pending Polychromasia 1+ Poikilocytosis 1+ Anisocytosis 2+ Geovanna Cells 2+ Sodium Level 129 MMOL/L (136-145) L 132 MMOL/L (136-145) L Potassium Level 4.0 MMOL/L (3.5-5.1) 4.0 MMOL/L (3.5-5.1) Chloride Level 95 MMOL/L (98-107) L 97 MMOL/L (98-107) L Carbon Dioxide Level 14 MMOL/L (21-32) L 12 MMOL/L (21-32) L Anion Gap 20 mmol/L (5-15) H 23 mmol/L (5-15) H Blood Urea Nitrogen 246 mg/dL (7-18) H 244 mg/dL (7-18) H Creatinine 4.6 MG/DL (0.55-1.30) H 4.6 MG/DL (0.55-1.30) H Estimat Glomerular Filtration Rate 10.2 mL/min (>60) 10.2 mL/min (>60) Glucose Level 89 MG/DL (74-106) 71 MG/DL (74-106) L Calcium Level 8.2 MG/DL (8.5-10.1) L 7.6 MG/DL (8.5-10.1) L Erythrocyte Sedimentation Rate 55 MM/HR (0-20) H Prothrombin Time 15.8 SEC (9.30-11.50) H Prothromb Time International Ratio 1.5 (0.9-1.1) H Activated Partial Thromboplast Time 31 SEC (23-33) Lactic Acid Level 0.40 mmol/L (0.4-2.0) Uric Acid 10.0 MG/DL (2.6-7.2) H Phosphorus Level 5.1 MG/DL (2.5-4.9) H Magnesium Level 2.8 MG/DL (1.8-2.4) H Total Bilirubin 0.4 MG/DL (0.2-1.0) Gamma Glutamyl Transpeptidase 13 U/L (5-85) Aspartate Amino Transf (AST/SGOT) 40 U/L (15-37) H Alanine Aminotransferase (ALT/SGPT) 20 U/L (12-78) Alkaline Phosphatase 116 U/L (46-116) Lactate Dehydrogenase 209 U/L (81-234) C-Reactive Protein, Quantitative 18.6 mg/dL (0.00-0.90) H Pro-B-Type Natriuretic Peptide > 39425 pg/mL (0-125) H Total Protein 5.7 G/DL (6.4-8.2) L Albumin 1.9 G/DL (3.4-5.0) L Globulin 3.8 g/dL Albumin/Globulin Ratio 0.5 (1.0-2.7) L Amylase Level 141 U/L (25-115) H Lipase 660 U/L (73-393) H Vitamin B12 Level > 2000 PG/ML (193-986) H Vitamin D 25-Hydroxy Pending 25-Hydroxy Vitamin D2 Pending 25-Hydroxy Vitamin D3 Pending Folate 37.2 NG/ML (8.6-58.9) Vancomycin Level Trough 11.8 ug/mL (5.0-12.0) Current Medications Medications (Trade) Dose Ordered Sig/Penny Route PRN Reason Start Time Stop Time Status Last Admin Dose Admin Acetaminophen (Tylenol) 650 mg Q6H PRN GT Mild Pain (Pain Scale 1-3) 03/02/20 22:30 04/01/20 22:29 Acetaminophen (Tylenol) 650 mg Q6H PRN GT Temp >100.5 03/03/20 03:00 04/01/20 22:29 Acetaminophen/ Hydrocodone Bitart ([place] 5/325) 1 tab Q6H PRN GT Severe Pain (Pain Scale 7-10) 03/02/20 22:00 03/09/20 21:59 Atorvastatin Calcium (Lipitor) 10 mg BEDTIME GT 03/03/20 21:00 06/01/20 20:59 03/03/20 21:23 Chlorhexidine Gluconate (Ling-Hex 2%) 1 applic DAILY@2000 TOPIC 03/03/20 20:00 06/01/20 19:59 03/03/20 21:23 Hydralazine HCl (Apresoline) 25 mg Q6H PRN GT For High Blood Pressure 03/02/20 22:00 05/31/20 21:59 Meropenem 500 mg/ Sodium Chloride 55 ml @ 110 mls/hr Q12H IVPB 03/03/20 10:00 03/08/20 09:59 03/03/20 21:25 Midodrine (Pro-Amatine) 10 mg THREE TIMES A DAY GT 03/03/20 13:09 06/01/20 12:59 03/04/20 08:56 Pantoprazole (Protonix) 40 mg EVERY 12 HOURS IVP 03/04/20 21:00 04/02/20 20:59 Polyethylene Glycol (Miralax) 17 gm BEDTIME PRN GT Constipation 03/02/20 22:00 04/01/20 21:59 Sodium Hypochlorite (Dakin's Quarter Strength) 1 applic DAILY TOPIC 03/04/20 09:00 04/03/20 08:59 03/04/20 09:00 Vancomycin HCl (Vanco pharmacy to dose) 1 ea DAILY PRN MISC Per rx protocol 03/03/20 09:15 04/02/20 09:14 Vancomycin HCl 1 gm/Dextrose 275 ml @ 183.708 mls/hr ONCE ONCE IVPB 03/04/20 18:00 03/04/20 19:29 Ro Pack M.D. Mar 04, 2020 09:27
--- NOTE | 2020-03-04 10:00 | NUR ---
NURSE NOTES: Blood transfusion with PRBC started. Pt is tolerating, Pretransfusion BP 83/34m HR 83, Temp. 97.9, O2 sat 100%. Will continue to closely monitor pt. Will continue with the plan of care.
[2020-03-04] MEDS: Meropenem 500 MG in NS 55 ML IVPB SCH ×2 (10:21→20:48)
--- NOTE | 2020-03-04 11:06 | Pre-Procedure Note/Attestation ---
Pre-Procedure Note/Attestation Complete Prior to Procedure Planned Procedure: not applicable Procedure Narrative: egd Indications for Procedure Pre-Operative Diagnosis: gib Attestation I attest that I discussed the nature of the procedure; its benefits; risks and complications; and alternatives (and the risks and benefits of such alternatives), prior to the procedure, with the patient (or the patient's legal residential sales representative). I attest that, if there was a reasonable possibility of needing a blood transfusion, the patient (or the patient's legal residential sales representative) was given the [facility] standardized written summary, pursuant to the Deo Cash Blood Safety Act ([place] Health and Safety Code # 1645, as amended). I attest that I re-evaluated the patient just prior to the surgery and that there has been no change in the patient's H&P, except as documented below: Inder Mccauley MD Mar 04, 2020 11:06
--- NOTE | 2020-03-04 11:28 | NUR ---
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
--- NOTE | 2020-03-04 11:40 | NUR ---
NURSE NOTES: Pt had EGD. Large gastric ulcer and esophagitis found. Ulcer not actively bleeding. Will continue to closely monitor pt.
--- NOTE | 2020-03-04 11:45 | Endoscopy Procedure Note ---
Endoscopy Procedure Note General Indication for Procedure: gib Procedures Performed: EGD Operative Findings/Diagnosis: gu Specimen: yes Pt Tolerated Procedure Well: Yes Estimated Blood Loss: none Anesthesia Anesthesiologist: jennyfer Anesthesia: MAC Inserted Devices Implant(s) used?: No GI Core Measures 50 yrs or older w/o bx or poly: Not Applicable 10yrs. F/U recommended: Not Applicable Inder Mccauley MD Mar 04, 2020 11:45
[2020-03-04] MEDS ORDERED: NS 500ML IVPB ONE (11:50)
--- NOTE | 2020-03-04 11:51 | Immediate Post-Op Evaluation ---
Immediate Post-Op Evalulation Immediate Post-Op Evalulation Procedure: EGD Date of Evaluation: Mar 04, 2020 Time of Evaluation: 11:51 IV Fluids: 100 Blood Pressure Systolic: 95 Blood Pressure Diastolic: 60 Pulse Rate: 77 Respiratory Rate: 14 O2 Sat by Pulse Oximetry: 98 Nausea: No Vomiting: No Complications none Patient Status: patent, ventilated - AC 40% Rate 14 pee5 TV 500 Hydration Status: other - receiving PRBC Drug: none Kianna Chaparro CRNA Mar 04, 2020 11:51
--- NOTE | 2020-03-04 11:55 | Anethesia Preoperative Eval ---
Anesthesia Pre-op PMH/ROS General Date of Evaluation: Mar 04, 2020 Time of Evaluation: 11:30 Anesthesiologist: filemon ASA Score: ASA 4 Mallampati Score Class I : Soft palate, uvula, fauces, pillars visible Class II: Soft palate, uvula, fauces visible Class III: Soft palate, base of uvula visible Class IV: Only hard plate visible Mallampati Classification: Class III Surgeon: ifeoma Diagnosis: GI Bleed Surgical Procedure: EGD Anesthesia History: none Family History: no anesthesia problems Allergies: Coded Allergies: No Known Allergies (Unverified , 10/10/17) Medications: see eMAR Patient NPO?: Yes NPO Date: Mar 04, 2020 NPO Time: 00:01 Past Medical History Cardiovascular: Reports: HTN, CAD, NH, other Pulmonary: Reports: other - Resp failure s/p trach; Denies: asthma, COPD, SANTHOSH Gastrointestinal/Genitourinary: Reports: GERD, CRI Neurologic/Psychiatric: Reports: dementia; Denies: CVA, depression/anxiety, TIA, other HEENT: Denies: cataract (L), cataract (R), glaucoma, [place] (L), [place] (R), other Hematology/Immune: Reports: anemia; Denies: DVT, bleeding disorder, other Musculoskeletal/Integumentary: Reports: other - GI bleed; Denies: OA, RA, DJD, DDD, edema Other: other - septic shock PSxH Narrative: trach; CABG Anesthesia Pre-op Phys. Exam Physician Exam Last Vital Signs Date Time Temp Pulse Resp B/P (MAP) Pulse Ox O2 Delivery O2 Flow Rate FiO2 03/04/20 08:00 40 03/04/20 08:00 98.2 85 26 104/51 (68) 96 03/04/20 08:00 Mechanical Ventilator Constitutional: other - weakness; demential Neurologic: other - none responsive; only to pain Cardiovascular: RRR Respiratory: CTA Gastrointestinal: S/NT/ND Airway Exam Mallampati Classification 3 Mallampati Score: Class III MO: limited ROM: limited Teeth: other - tracheostomy and mech ventilated Dentures: no upper, no lower Anesthesia Pre-op A/P Labs Hematology Test 03/03/20 18:45 03/04/20 05:00 White Blood Count 32.6 K/UL (4.8-10.8) *H 30.1 K/UL (4.8-10.8) *H Red Blood Count 1.86 M/UL (4.20-5.40) L 2.43 M/UL (4.20-5.40) L Hemoglobin 5.2 G/DL (12.0-16.0) *L 7.1 G/DL (12.0-16.0) #L Hematocrit 15.8 % (37.0-47.0) L 21.1 % (37.0-47.0) #L Mean Corpuscular Volume 85 FL (80-99) 87 FL (80-99) Mean Corpuscular Hemoglobin 27.9 PG (27.0-31.0) 29.2 PG (27.0-31.0) Mean Corpuscular Hemoglobin Concent 32.8 G/DL (32.0-36.0) 33.7 G/DL (32.0-36.0) Red Cell Distribution Width 14.9 % (11.6-14.8) H 14.2 % (11.6-14.8) Platelet Count 244 K/UL (150-450) 245 K/UL (150-450) Mean Platelet Volume 4.9 FL (6.5-10.1) L 5.5 FL (6.5-10.1) L Neutrophils (%) (Auto) % (45.0-75.0) % (45.0-75.0) Lymphocytes (%) (Auto) % (20.0-45.0) % (20.0-45.0) Monocytes (%) (Auto) % (1.0-10.0) % (1.0-10.0) Eosinophils (%) (Auto) % (0.0-3.0) % (0.0-3.0) Basophils (%) (Auto) % (0.0-2.0) % (0.0-2.0) Differential Total Cells Counted 100 100 Neutrophils % (Manual) 73 % (45-75) 89 % (45-75) H Lymphocytes % (Manual) 6 % (20-45) L 5 % (20-45) L Monocytes % (Manual) 2 % (1-10) 4 % (1-10) Eosinophils % (Manual) 0 % (0-3) 0 % (0-3) Basophils % (Manual) 0 % (0-2) 0 % (0-2) Band Neutrophils 19 % (0-8) H 2 % (0-8) Platelet Estimate Adequate Adequate Platelet Morphology Normal Normal Polychromasia 1+ 1+ Poikilocytosis 1+ Anisocytosis 2+ Geovanna Cells 2+ Red Blood Cell Morphology Normal Hypochromasia 1+ Erythrocyte Sedimentation Rate 55 MM/HR (0-20) H Coagulation Test 03/04/20 05:00 Prothrombin Time 15.8 SEC (9.30-11.50) H Prothromb Time International Ratio 1.5 (0.9-1.1) H Activated Partial Thromboplast Time 31 SEC (23-33) Chemistry Test 03/03/20 18:45 03/04/20 05:00 Sodium Level 129 MMOL/L (136-145) L 132 MMOL/L (136-145) L Potassium Level 4.0 MMOL/L (3.5-5.1) 4.0 MMOL/L (3.5-5.1) Chloride Level 95 MMOL/L (98-107) L 97 MMOL/L (98-107) L Carbon Dioxide Level 14 MMOL/L (21-32) L 12 MMOL/L (21-32) L Anion Gap 20 mmol/L (5-15) H 23 mmol/L (5-15) H Blood Urea Nitrogen 246 mg/dL (7-18) H 244 mg/dL (7-18) H Creatinine 4.6 MG/DL (0.55-1.30) H 4.6 MG/DL (0.55-1.30) H Estimat Glomerular Filtration Rate 10.2 mL/min (>60) 10.2 mL/min (>60) Glucose Level 89 MG/DL (74-106) 71 MG/DL (74-106) L Calcium Level 8.2 MG/DL (8.5-10.1) L 7.6 MG/DL (8.5-10.1) L Lactic Acid Level 0.40 mmol/L (0.4-2.0) Uric Acid 10.0 MG/DL (2.6-7.2) H Phosphorus Level 5.1 MG/DL (2.5-4.9) H Magnesium Level 2.8 MG/DL (1.8-2.4) H Total Bilirubin 0.4 MG/DL (0.2-1.0) Gamma Glutamyl Transpeptidase 13 U/L (5-85) Aspartate Amino Transf (AST/SGOT) 40 U/L (15-37) H Alanine Aminotransferase (ALT/SGPT) 20 U/L (12-78) Alkaline Phosphatase 116 U/L (46-116) Lactate Dehydrogenase 209 U/L (81-234) C-Reactive Protein, Quantitative 18.6 mg/dL (0.00-0.90) H Pro-B-Type Natriuretic Peptide > 89282 pg/mL (0-125) H Total Protein 5.7 G/DL (6.4-8.2) L Albumin 1.9 G/DL (3.4-5.0) L Globulin 3.8 g/dL Albumin/Globulin Ratio 0.5 (1.0-2.7) L Amylase Level 141 U/L (25-115) H Lipase 660 U/L (73-393) H Vitamin B12 Level > 2000 PG/ML (193-986) H Vitamin D 25-Hydroxy Pending 25-Hydroxy Vitamin D2 Pending 25-Hydroxy Vitamin D3 Pending Folate 37.2 NG/ML (8.6-58.9) Studies Pre-op Studies: EKG - SR Risk Assessment & Plan Assessment: covid? Plan: mac Status Change Before Surgery: No Pre-Antibiotics Drug: none Kianna Chaparro CRNA Mar 04, 2020 11:55
[2020-03-04 12:00] VITALS: BP 97/34
[2020-03-04] MEDS: Metoclopramide 10mg/2ml Inj IVP SCH ×2 (12:12→20:47)
[2020-03-04] MEDS: Midodrine 10mg tab GT SCH ×2 (12:13→18:01)
--- NOTE | 2020-03-04 12:38 | Surgery Progress Note ---
Surgery Progress Note Subjective Additional Comments dominic cute events labs noted exam stable Objective Last 24 Hour Vital Signs Date Time Temp Pulse Resp B/P (MAP) Pulse Ox O2 Delivery O2 Flow Rate FiO2 03/04/20 11:51 77 14 98 03/04/20 08:00 40 03/04/20 08:00 98.2 85 26 104/51 (68) 96 03/04/20 08:00 Mechanical Ventilator 03/04/20 07:44 94 03/04/20 07:05 87 22 40 03/04/20 04:00 98.8 82 21 125/55 (78) 98 03/04/20 04:00 Mechanical Ventilator 03/04/20 04:00 40 03/04/20 03:40 79 28 40 03/04/20 03:11 78 03/04/20 00:00 Mechanical Ventilator 03/04/20 00:00 98.8 81 16 107/51 (69) 100 03/03/20 23:29 77 24 40 03/03/20 23:07 78 03/03/20 20:00 99.0 80 18 97/55 (69) 100 03/03/20 20:00 40 03/03/20 20:00 Mechanical Ventilator 03/03/20 19:56 83 25 40 03/03/20 19:33 83 03/03/20 16:00 97.8 86 14 95/44 (61) 100 03/03/20 16:00 40 03/03/20 16:00 Mechanical Ventilator 03/03/20 15:54 86 03/03/20 15:15 87 25 40 I&O Intake and Output 03/03/20 03/04/20 19:00 07:00 Intake Total 683.5 ml 240 ml Output Total 150 ml 100 ml Balance 533.5 ml 140 ml Intake Free Water 200 ml IV Total 193.5 ml 240 ml Tube Feeding 290 ml Output Urine Total 150 ml 100 ml # Bowel Movements 2 4 Dressing: saturated Cardiovascular: RSR Respiratory: decreased breath sounds Abdomen: soft, non-tender, present bowel sounds, non-distended Extremities: no tenderness, no cyanosis, other Laboratory Tests Test 03/03/20 17:50 03/03/20 18:45 03/04/20 05:00 Stool Occult Blood Positive (NEGATIVE) White Blood Count 32.6 K/UL (4.8-10.8) *H 30.1 K/UL (4.8-10.8) *H Red Blood Count 1.86 M/UL (4.20-5.40) L 2.43 M/UL (4.20-5.40) L Hemoglobin 5.2 G/DL (12.0-16.0) *L 7.1 G/DL (12.0-16.0) #L Hematocrit 15.8 % (37.0-47.0) L 21.1 % (37.0-47.0) #L Mean Corpuscular Volume 85 FL (80-99) 87 FL (80-99) Mean Corpuscular Hemoglobin 27.9 PG (27.0-31.0) 29.2 PG (27.0-31.0) Mean Corpuscular Hemoglobin Concent 32.8 G/DL (32.0-36.0) 33.7 G/DL (32.0-36.0) Red Cell Distribution Width 14.9 % (11.6-14.8) H 14.2 % (11.6-14.8) Platelet Count 244 K/UL (150-450) 245 K/UL (150-450) Mean Platelet Volume 4.9 FL (6.5-10.1) L 5.5 FL (6.5-10.1) L Neutrophils (%) (Auto) % (45.0-75.0) % (45.0-75.0) Lymphocytes (%) (Auto) % (20.0-45.0) % (20.0-45.0) Monocytes (%) (Auto) % (1.0-10.0) % (1.0-10.0) Eosinophils (%) (Auto) % (0.0-3.0) % (0.0-3.0) Basophils (%) (Auto) % (0.0-2.0) % (0.0-2.0) Differential Total Cells Counted 100 100 Neutrophils % (Manual) 73 % (45-75) 89 % (45-75) H Lymphocytes % (Manual) 6 % (20-45) L 5 % (20-45) L Monocytes % (Manual) 2 % (1-10) 4 % (1-10) Eosinophils % (Manual) 0 % (0-3) 0 % (0-3) Basophils % (Manual) 0 % (0-2) 0 % (0-2) Band Neutrophils 19 % (0-8) H 2 % (0-8) Platelet Estimate Adequate Adequate Platelet Morphology Normal Normal Polychromasia 1+ 1+ Poikilocytosis 1+ Anisocytosis 2+ Geovanna Cells 2+ Sodium Level 129 MMOL/L (136-145) L 132 MMOL/L (136-145) L Potassium Level 4.0 MMOL/L (3.5-5.1) 4.0 MMOL/L (3.5-5.1) Chloride Level 95 MMOL/L (98-107) L 97 MMOL/L (98-107) L Carbon Dioxide Level 14 MMOL/L (21-32) L 12 MMOL/L (21-32) L Anion Gap 20 mmol/L (5-15) H 23 mmol/L (5-15) H Blood Urea Nitrogen 246 mg/dL (7-18) H 244 mg/dL (7-18) H Creatinine 4.6 MG/DL (0.55-1.30) H 4.6 MG/DL (0.55-1.30) H Estimat Glomerular Filtration Rate 10.2 mL/min (>60) 10.2 mL/min (>60) Glucose Level 89 MG/DL (74-106) 71 MG/DL (74-106) L Calcium Level 8.2 MG/DL (8.5-10.1) L 7.6 MG/DL (8.5-10.1) L Red Blood Cell Morphology Normal Hypochromasia 1+ Erythrocyte Sedimentation Rate 55 MM/HR (0-20) H Prothrombin Time 15.8 SEC (9.30-11.50) H Prothromb Time International Ratio 1.5 (0.9-1.1) H Activated Partial Thromboplast Time 31 SEC (23-33) Lactic Acid Level 0.40 mmol/L (0.4-2.0) Uric Acid 10.0 MG/DL (2.6-7.2) H Phosphorus Level 5.1 MG/DL (2.5-4.9) H Magnesium Level 2.8 MG/DL (1.8-2.4) H Total Bilirubin 0.4 MG/DL (0.2-1.0) Gamma Glutamyl Transpeptidase 13 U/L (5-85) Aspartate Amino Transf (AST/SGOT) 40 U/L (15-37) H Alanine Aminotransferase (ALT/SGPT) 20 U/L (12-78) Alkaline Phosphatase 116 U/L (46-116) Lactate Dehydrogenase 209 U/L (81-234) C-Reactive Protein, Quantitative 18.6 mg/dL (0.00-0.90) H Pro-B-Type Natriuretic Peptide > 85253 pg/mL (0-125) H Total Protein 5.7 G/DL (6.4-8.2) L Albumin 1.9 G/DL (3.4-5.0) L Globulin 3.8 g/dL Albumin/Globulin Ratio 0.5 (1.0-2.7) L Amylase Level 141 U/L (25-115) H Lipase 660 U/L (73-393) H Vitamin B12 Level > 2000 PG/ML (193-986) H Vitamin D 25-Hydroxy Pending 25-Hydroxy Vitamin D2 Pending 25-Hydroxy Vitamin D3 Pending Folate 37.2 NG/ML (8.6-58.9) Vancomycin Level Trough 11.8 ug/mL (5.0-12.0) Plan Problems: (1) Pancreatitis Assessment & Plan: 49-year-old female well-known to me presents with pancreatitis lipase elevated greater than 2000 history of this in the past. Tolerating tube feeds. Okay for diet. Continue to trend labs. Abdominal e xamination otherwise benign. Will obtain imaging as necessary. Currently leukocytosis significant anemia. Heme input appreciated. Thank you will follow with recommendations (2) Elevated troponin (3) Anemia (4) Renal failure (5) ARF (acute renal failure) (6) Pacemaker (7) Sepsis Assessment & Plan: Leukocytosis anemia abnormal labs elevated LFTs elevated lipase acute pancreatitis along with potential pneumonia UTI Covid negative C. difficile negative. Continue antibiotics. Trend labs. DAILY ESTIMATED NEEDS: Needs based on Critical care, wound, renal dysfunction 59.5 kg 27-22 kcals/kg 2016-0221 total kcals W/ HD (1.5-2.0) g protein/kg 89-119 g total protein Fluid per MD NUTRITION DIAGNOSIS: * Swallowing difficulty R/T dysphagia, respiratory status as evidenced by vent dep via trach, GT Dep. * Increase kcal and pro needs r/t wound healing, renal dysfunction as evidenced by h/o stage 4 sacral wound, and HD. CURRENT TF: Nepro @ 45ml/hr x 24 hrs ENTERAL NUTRITION RECOMMENDATIONS: Nepro @ 45ml/hr x 24 hrs + Prosource 1pkt QD to provide 1080ml, 1944 kcal, 87g + 11g pro, 785ml free H2O * Advance as tolerated to goal. * Add Prosource 1pkt QD to better meet increased protein needs (additional 11g prot) * Water flush per MD/ HOB over 30 degrees ADDITIONAL RECOMMENDATIONS: * Maintain calibrated bed scale * Monitor for HD continuity * F/up w/ WC eval-> add FRANKLIN in 4oz H2O BID via GT * On lactulose, monitor for BM * Monitor BG (hypoglycemic this morning), rec bed side BG checks . (8) Hyponatremia (9) Chronic respiratory failure (10) Dehydration (11) Hypokalemia (12) Acidosis (13) Ascites (14) Bacteremia (15) Depression (16) Hypernatremia (17) Hyponatremia (18) Pleural effusion (19) Proteinuria (20) Respiratory failure (21) Schizophrenia (22) Electrolyte imbalance (23) Hypoxia (24) UTI (urinary tract infection) (25) Pneumonia (26) ACS (acute coronary syndrome) (27) NSTEMI (non-ST elevated myocardial infarction) (28) Aortic dissection, thoracic (29) Tracheostomy in place (30) Respiratory failure, acute and chronic (31) JAVIER (acute kidney injury) (32) JAVIER (acute kidney injury) (33) Abrasion of lip, initial encounter (34) COPD with exacerbation (35) Elevated alkaline phosphatase level (36) Renal failure (ARF), acute on chronic (37) Acute encephalopathy (38) HCAP (healthcare-associated pneumonia) (39) Elevated lipase (40) Sacral decubitus ulcer, stage IV Assessment & Plan: Pt presented on admission with Full Thickness Sacral Pressure Injury (L)11cm x (W)13.5cm x (D)1.6cm, Undermining clockwise 7-3 by 3cm @7o'clock. Base of wound is 90% necrotic,10% mixed pink and slough.Epibole and maceration noted along borders. Periwound ,along borders is indurated with darke r skin tone . No elevation in skin temp ,or erythema noted. Wound is malodorous. Small amt brown exudate noted. MASD noted to perineum, Bilat ischial tuberosities and medial aspects of both upper thighs. Affected areas are erythematous and denuded. R Heel is boggy with non-blanchable erythema. L Heel is boggy with non-blanchable erythema. Tx.Plan:Cleanse Sacral Wound with Dakin's 0.125% Tawanna. Loosely Pack Wound with Dakin's moistened Kerlix. Apply Moisture Barrier Paste periwound. Cover with Optifoam drsg Daily and prn. Apply Moisture Barrier Paste to Perineum and Medial aspects of both upper thighs with each Incontinence care. Apply Cavilon Skin Barrier to both heels. Cover each Heel with Optifoam drsg. Change every 7 days and prn. Reposition at least every 2hours or as tolerated. Off-load heels with Pillow. APM/JENNIFER Mattress overlay (41) GT CLOGGED (42) Ventilator dependence (43) Severe anemia (44) Feeding by G-tube Lane Saavedra Mar 04, 2020 12:38
--- NOTE | 2020-03-04 12:57 | 48 Hour Post Anesthesia Eval ---
Post Anesthesia Evaluation Procedure: EGD Date of Evaluation: Mar 04, 2020 Time of Evaluation: 12:56 Blood Pressure Systolic: 106 0: 70 Pulse Rate: 77 Respiratory Rate: 14 O2 Sat by Pulse Oximetry: 98 Airway: patent Nausea: No Vomiting: No Hydration Status: adequate Cardiopulmonary Status: stable Mental Status/LOC: patient returned to baseline Follow-up Care/Observations: na Post-Anesthesia Complications: none Follow-up care needed: N/A Kianna Chaparro [facility] Mar 04, 2020 12:57
--- NOTE | 2020-03-04 13:05 | Diagnostic Imaging Report ---
Indication: Shortness of breath Technique: One view of the chest Comparison: 03/02/2020 Findings: There is blunting of the left costophrenic sulcus, likely new or increased pleural fluid. There is some retrocardiac consolidation again demonstrated. The left upper lung, right lung and pleural space are clear. Tracheostomy, right jugular tunneled dialysis catheter remain Impression: New or increased left pleural effusion, over 2 days
--- NOTE | 2020-03-04 13:07 | NUR ---
RADIOLOGY DEPT., CHEST AND ABDOMEN X-RAY DONE.-P.DYE
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
--- NOTE | 2020-03-04 13:54 | Nephrology Progress Note ---
Assessment/Plan Problem List: (1) Renal failure (ARF), acute on chronic (2) Anemia (3) Hyponatremia (4) Respiratory failure Assessment (1) JAVIER (acute kidney injury) (2) Renal failure (ARF), acute on chronic (3) Feeding by G-tube (4) Tracheostomy in place (5) Electrolyte imbalance, hyponatremia (6) Anemia, severe (7) Respiratory failure, acute and chronic (8) history of elevated lipase, pancreatitis (9) Elevated troponin I (10) Sepsis Plan March 04: Labs reviewed. Hemoglobin lower. Patient actively bleeding. Was not dialyzed yesterday. Due for GI endoscopy. Continue fluid challenge. Transfusion as needed. Dialysis today. March 03: Labs reviewed. Dialysis ordered. Blood pressure medication all discontinued due to hypotensive state. Albumin bolus given. Continue to monitor renal parameters. Medication list reviewed. Midodrin for low blood pressure ordered Subjective ROS Limited/Unobtainable: Yes Objective Objective Last 24 Hour Vital Signs Date Time Temp Pulse Resp B/P (MAP) Pulse Ox O2 Delivery O2 Flow Rate FiO2 03/04/20 12:57 77 14 98 03/04/20 12:00 97.7 74 24 97/34 (55) 100 03/04/20 12:00 Mechanical Ventilator 03/04/20 12:00 40 03/04/20 11:51 77 14 98 03/04/20 11:38 77 03/04/20 11:30 88 25 40 03/04/20 08:00 40 03/04/20 08:00 98.2 85 26 104/51 (68) 96 03/04/20 08:00 Mechanical Ventilator 03/04/20 07:44 94 03/04/20 07:05 87 22 40 03/04/20 04:00 98.8 82 21 125/55 (78) 98 03/04/20 04:00 Mechanical Ventilator 03/04/20 04:00 40 03/04/20 03:40 79 28 40 03/04/20 03:11 78 03/04/20 00:00 Mechanical Ventilator 03/04/20 00:00 98.8 81 16 107/51 (69) 100 03/03/20 23:29 77 24 40 03/03/20 23:07 78 03/03/20 20:00 99.0 80 18 97/55 (69) 100 03/03/20 20:00 40 03/03/20 20:00 Mechanical Ventilator 03/03/20 19:56 83 25 40 03/03/20 19:33 83 03/03/20 16:00 97.8 86 14 95/44 (61) 100 03/03/20 16:00 40 03/03/20 16:00 Mechanical Ventilator 03/03/20 15:54 86 03/03/20 15:15 87 25 40 Intake and Output 03/03/20 03/04/20 19:00 07:00 Intake Total 683.5 ml 240 ml Output Total 150 ml 100 ml Balance 533.5 ml 140 ml Intake Free Water 200 ml IV Total 193.5 ml 240 ml Tube Feeding 290 ml Output Urine Total 150 ml 100 ml # Bowel Movements 2 4 Current Medications Medications (Trade) Dose Ordered Sig/Penny Route PRN Reason Start Time Stop Time Status Last Admin Dose Admin Acetaminophen (Tylenol) 650 mg Q6H PRN GT Mild Pain (Pain Scale 1-3) 03/02/20 22:30 04/01/20 22:29 Acetaminophen (Tylenol) 650 mg Q6H PRN GT Temp >100.5 03/03/20 03:00 04/01/20 22:29 Acetaminophen/ Hydrocodone Bitart ([place] 5/325) 1 tab Q6H PRN GT Severe Pain (Pain Scale 7-10) 03/02/20 22:00 03/09/20 21:59 Atorvastatin Calcium (Lipitor) 10 mg BEDTIME GT 03/03/20 21:00 06/01/20 20:59 03/03/20 21:23 Chlorhexidine Gluconate (Ling-Hex 2%) 1 applic DAILY@2000 TOPIC 03/03/20 20:00 06/01/20 19:59 03/03/20 21:23 Hydralazine HCl (Apresoline) 25 mg Q6H PRN GT For High Blood Pressure 03/02/20 22:00 05/31/20 21:59 Meropenem 500 mg/ Sodium Chloride 55 ml @ 110 mls/hr Q12H IVPB 03/03/20 10:00 03/08/20 09:59 03/04/20 10:21 Metoclopramide HCl (Reglan) 5 mg Q8HR IVP 03/04/20 11:45 04/03/20 11:44 03/04/20 12:12 Midodrine (Pro-Amatine) 10 mg THREE TIMES A DAY GT 03/04/20 13:00 06/01/20 12:59 03/04/20 12:13 Pantoprazole (Protonix) 40 mg EVERY 12 HOURS IVP 03/04/20 21:00 04/02/20 20:59 Phytonadione 1 mg/ Dextrose 55.5 ml @ 222 mls/hr ONCE IVPB 03/04/20 14:00 03/04/20 18:00 Polyethylene Glycol (Miralax) 17 gm BEDTIME PRN GT Constipation 03/02/20 22:00 04/01/20 21:59 Sodium Hypochlorite (Dakin's Quarter Strength) 1 applic DAILY TOPIC 03/04/20 09:00 04/03/20 08:59 03/04/20 09:00 Vancomycin HCl ([facility] pharmacy to dose) 1 ea DAILY PRN MISC Per rx protocol 03/03/20 09:15 04/02/20 09:14 Vancomycin HCl 1 gm/Dextrose 275 ml @ 183.708 mls/hr ONCE ONCE IVPB 03/04/20 18:00 03/04/20 19:29 Laboratory Tests 03/03/20 17:50: Stool Occult Blood Positive 03/03/20 18:45: White Blood Count 32.6*H, Red Blood Count 1.86L, Hemoglobin 5.2*L, Hematocrit 15.8L, Mean Corpuscular Volume 85, Mean Corpuscular Hemoglobin 27.9, Mean Corpuscular Hemoglobin Concent 32.8, Red Cell Distribution Width 14.9H, Platelet Count 244, Mean Platelet Volume 4.9L, Neutrophils (%) (Auto) , Lymphocytes (%) (Auto) , Monocytes (%) (Auto) , Eosinophils (%) (Auto) , Basophils (%) (Auto) , Differential Total Cells Counted 100, Neutrophils % (Manual) 73, Lymphocytes % (Manual) 6L, Monocytes % (Manual) 2, Eosinophils % (Manual) 0, Basophils % (Manual) 0, Band Neutrophils 19H, Platelet Estimate Adequate, Platelet Morphology Normal, Polychromasia 1+, Poikilocytosis 1+, Anisocytosis 2+, Coyote Cells 2+, Sodium Level 129L, Potassium Level 4.0, Chloride Level 95L, Carbon Dioxide Level 14L, Anion Gap 20H, Blood Urea Nitrogen 246H, Creatinine 4.6H, Estimat Glomerular Filtration Rate 10.2, Glucose Level 89, Calcium Level 8.2L 03/04/20 05:00: White Blood Count 30.1*H, Red Blood Count 2.43L, Hemoglobin 7.1#L, Hematocrit 21.1#L, Mean Corpuscular Volume 87, Mean Corpuscular Hemoglobin 29.2, Mean Corpuscular Hemoglobin Concent 33.7, Red Cell Distribution Width 14.2, Platelet Count 245, Mean Platelet Volume 5.5L, Neutrophils (%) (Auto) , Lymphocytes (%) (Auto) , Monocytes (%) (Auto) , Eosinophils (%) (Auto) , Basophils (%) (Auto) , Differential Total Cells Counted 100, Neutrophils % (Manual) 89H, Lymphocytes % (Manual) 5L, Monocytes % (Manual) 4, Eosinophils % (Manual) 0, Basophils % (Manual) 0, Band Neutrophils 2, Platelet Estimate Adequate, Platelet Morphology Normal, Polychromasia 1+, Sodium Level 132L, Potassium Level 4.0, Chloride Level 97L, Carbon Dioxide Level 12L, Anion Gap 23H, Blood Urea Nitrogen 244H, Creatinine 4.6H, Estimat Glomerular Filtration Rate 10.2, Glucose Level 71L, Calcium Level 7.6L, Red Blood Cell Morphology Normal, Hypochromasia 1+, E rythrocyte Sedimentation Rate 55H, Prothrombin Time 15.8H, Prothromb Time International Ratio 1.5H, Activated Partial Thromboplast Time 31, Lactic Acid Level 0.40, Uric Acid 10.0H, Phosphorus Level 5.1H, Magnesium Level 2.8H, Total Bilirubin 0.4, Gamma Glutamyl Transpeptidase 13, Aspartate Amino Transf (AST/SGOT) 40H, Alanine Aminotransferase (ALT/SGPT) 20, Alkaline Phosphatase 116, Lactate Dehydrogenase 209, C-Reactive Protein, Quantitative 18.6H, Pro-B-Type Natriuretic Peptide > 03681A, Total Protein 5.7L, Albumin 1.9L, Globulin 3.8, Albumin/Globulin Ratio 0.5L, Amylase Level 141H, Lipase 660H, Vitamin B12 Level > 2000H, Vitamin D 25-Hydroxy [Pending], 25-Hydroxy Vitamin D2 [Pending], 25-Hydroxy Vitamin D3 [Pending], Folate 37.2, Vancomycin Level Trough 11.8 Height (Feet): 5 Height (Inches): 3.00 Weight (Pounds): 128 General Appearance: no apparent distress EENT: other - Trach to vent Cardiovascular: normal rate Respiratory/Chest: decreased breath sounds Abdomen: distended Johnny Houston MD Mar 04, 2020 13:54
[2020-03-04] MEDS ORDERED: Phytonadione 1 MG in D5W 55 ML IVPB SCH (14:00)
[2020-03-04] MEDS ORDERED: NaCl 3% 500ml 500 ML IV ONE (15:00)
--- NOTE | 2020-03-04 15:30 | Procedure Note ---
DATE OF PROCEDURE: 03/04/2020 SURGEON: Inder Mccauley MD. PROCEDURE: Upper endoscopy with biopsy. ANESTHESIA: Per ELECTRIC ORGAN CHECKER, Kianna Chaparro. INSTRUMENT: Olympus adult flexible upper endoscope. INDICATION: Upper GI bleeding. REASON FOR PROCEDURE: The procedure, risks, benefits, and possible consequences, including hemorrhage, aspiration, perforation and infection, and alternative treatments, were explained to the patient/legal guardian by Dr. Inder Mccauley and the patient/legal guardian understood and accepted these risks. PROCEDURE IN DETAIL: After informed consent was obtained and the patient was adequately sedated, Olympus upper endoscope was advanced from mouth into the second portion of duodenum and retroflexion was performed in the stomach. The patient has lots of fluids retained in the stomach suspicious for gastroparesis. There was an ulcer in the prepyloric region right across from the G-tube, possibility of the G-tube tip is causing this ulceration. No evidence of an active bleeding at this time. The patient had evidence of abnormal esophagus, it seems to be maybe dark and maybe esophagus causing esophagitis. At this time, biopsies from antrum was obtained and procedure was terminated. SUMMARY OF FINDINGS: 1. Abnormal esophagus, suspicious for ischemic esophagus. 2. Gastroparesis with retaining lots of fluid in the stomach. 3. G-tube in place rubbing against antrum causing ulceration without any active bleeding at this time. RECOMMENDATIONS: 1. Followup biopsy results. 2. Keep NPO for today. 3. Transfuse to keep hemoglobin above 7. 4. Consider changing the G-tube may be tomorrow. 5. Reflux measures, PPI twice a day, add Reglan. Inder Mccauley M.D. DR: Elaine JOB#: [id number] CC:
[2020-03-04 16:00] VITALS: BP 101/39
--- NOTE | 2020-03-04 16:30 | NUR ---
NURSE NOTES: Sponge bath done, linens and gown changed. Sacral ulcer cleaned and dressing done. Pt is turned and repositioned. Oral care done. Pt had large black tarry stool. Pt vomits black gastric content. Frequent suctioning oral and trach done. Will continue to monitor pt. Will continue with the plan of care.
[2020-03-04] MEDS ORDERED: Vancomycin 1gm/D5W 275ml IVPB ONE ×2 (18:00)
--- NOTE | 2020-03-04 18:32 | General Progress Note ---
Subjective Constitutional: Reports: no symptoms, weakness HEENT: Reports: no symptoms Cardiovascular: Reports: no symptoms Respiratory: Reports: shortness of breath, SOB at rest Gastrointestinal/Abdominal: Reports: black stools, tarry stools Genitourinary: Reports: no symptoms Neurologic/Psychiatric: Reports: weakness Endocrine: Reports: no symptoms Hematologic/Lymphatic: Reports: anemia Allergies: Coded Allergies: No Known Allergies (Unverified , 10/10/17) Objective Last 24 Hour Vital Signs Date Time Temp Pulse Resp B/P (MAP) Pulse Ox O2 Delivery O2 Flow Rate FiO2 03/04/20 16:00 74 03/04/20 15:10 75 28 40 03/04/20 12:57 77 14 98 03/04/20 12:00 97.7 74 24 97/34 (55) 100 03/04/20 12:00 Mechanical Ventilator 03/04/20 12:00 40 03/04/20 11:51 77 14 98 03/04/20 11:38 77 03/04/20 11:30 88 25 40 03/04/20 08:00 40 03/04/20 08:00 98.2 85 26 104/51 (68) 96 03/04/20 08:00 Mechanical Ventilator 03/04/20 07:44 94 03/04/20 07:05 87 22 40 03/04/20 04:00 98.8 82 21 125/55 (78) 98 03/04/20 04:00 Mechanical Ventilator 03/04/20 04:00 40 03/04/20 03:40 79 28 40 03/04/20 03:11 78 03/04/20 00:00 Mechanical Ventilator 03/04/20 00:00 98.8 81 16 107/51 (69) 100 03/03/20 23:29 77 24 40 03/03/20 23:07 78 03/03/20 20:00 99.0 80 18 97/55 (69) 100 03/03/20 20:00 40 03/03/20 20:00 Mechanical Ventilator 03/03/20 19:56 83 25 40 03/03/20 19:33 83 Intake and Output 03/03/20 03/04/20 19:00 07:00 Intake Total 683.5 ml 240 ml Output Total 150 ml 100 ml Balance 533.5 ml 140 ml Intake Free Water 200 ml IV Total 193.5 ml 240 ml Tube Feeding 290 ml Output Urine Total 150 ml 100 ml # Bowel Movements 2 4 Laboratory Tests 03/03/20 18:45: White Blood Count 32.6*H, Red Blood Count 1.86L, Hemoglobin 5.2*L, Hematocrit 15.8L, Mean Corpuscular Volume 85, Mean Corpuscular Hemoglobin 27.9, Mean Corpuscular Hemoglobin Concent 32.8, Red Cell Distribution Width 14.9H, Platelet Count 244, Mean Platelet Volume 4.9L, Neutrophils (%) (Auto) , Lymphocytes (%) (Auto) , Monocytes (%) (Auto) , Eosinophils (%) (Auto) , Basophils (%) (Auto) , Differential Total Cells Counted 100, Neutrophils % (Manual) 73, Lymphocytes % (Manual) 6L, Monocytes % (Manual) 2, Eosinophils % (Manual) 0, Basophils % (Manual) 0, Band Neutrophils 19H, Platelet Estimate Adequate, Platelet Morphology Normal, Polychromasia 1+, Poikilocytosis 1+, Anisocytosis 2+, Geovanna Cells 2+, Sodium Level 129L, Potassium Level 4.0, Chloride Level 95L, Carbon Dioxide Level 14L, Anion Gap 20H, Blood Urea Nitrogen 246H, Creatinine 4.6H, Estimat Glomerular Filtration Rate 10.2, Glucose Level 89, Calcium Level 8.2L 03/04/20 05:00: White Blood Count 30.1*H, Red Blood Count 2.43L, Hemoglobin 7.1#L, Hematocrit 21.1#L, Mean Corpuscular Volume 87, Mean Corpuscular Hemoglobin 29.2, Mean Corpuscular Hemoglobin Concent 33.7, Red Cell Distribution Width 14.2, Platelet Count 245, Mean Platelet Volume 5.5L, Neutrophils (%) (Auto) , Lymphocytes (%) (Auto) , Monocytes (%) (Auto) , Eosinophils (%) (Auto) , Basophils (%) (Auto) , Differential Total Cells Counted 100, Neutrophils % (Manual) 89H, Lymphocytes % (Manual) 5L, Monocytes % (Manual) 4, Eosinophils % (Manual) 0, Basophils % (Manual) 0, Band Neutrophils 2, Platelet Estimate Adequate, Platelet Morphology Normal, Polychromasia 1+, Sodium Level 132L, Potassium Level 4.0, Chloride Level 97L, Carbon Dioxide Level 12L, Anion Gap 23H, Blood Urea Nitrogen 244H, Creatinine 4.6H, Estimat Glomerular Filtration Rate 10.2, Glucose Level 71L, Calcium Level 7.6L, Red Blood Cell Morphology Normal, Hypochromasia 1+, Erythrocyte Sedimentation Rate 55H, Prothrombin Time 15.8H, Prothromb Time International Ratio 1.5H, Activated Partial Thromboplast Time 31, Lactic Acid Level 0.40, Uric Acid 10.0H, Phosphorus Level 5.1H, Magnesium Level 2.8H, Total Bilirubin 0.4, Gamma Glutamyl Transpeptidase 13, Aspartate Amino Transf (AST/SGOT) 40H, Alanine Aminotransferase (ALT/SGPT) 20, Alkaline Phosphatase 116, Lactate Dehydrogenase 209, C-Reactive Protein, Quantitative 18.6H, Pro-B-Type Natriuretic Peptide > 25834B, Total Protein 5.7L, Albumin 1.9L, Globulin 3.8, Albumin/Globulin Ratio 0.5L, Amylase Level 141H, Lipase 660H, Vitamin B12 Level > 2000H, Vitamin D 25-Hydroxy [Pending], 25-Hydroxy Vitamin D2 [Pending], 25-Hydroxy Vitamin D3 [Pending], Folate 37.2, Vancomycin Level Trough 11.8 Height (Feet): 5 Height (Inches): 3.00 Weight (Pounds): 128 General Appearance: lethargic EENT: normal ENT inspection Neck: supple Cardiovascular: normal rate, regular rhythm Respiratory/Chest: no respiratory distress, no accessory muscle use, decreased breath sounds, rhonchi - bilaterally Abdomen: normal bowel sounds, non tender, soft, no organomegaly, no mass Extremities: non-tender Edema: mild edema Neurologic: motor weakness, unresponsive Assessment/Plan Status Narrative Patient condition remain critical she develop tarry stool in indicating GI bleed repeat CBC revealed that her hemoglobin dropped from 7-5 transfused 2 unit packed RBC in addition to this a unit that she received in the emergency room her chest x-ray reveal appearance of new large pleural effusion laboratory data reveal that her renal failure involved hypophosphatemia hypo-García anemia and hyperuricemia appropriately BNP is 35,000 CRP is 18 a GI consult was called and patient underwent colonoscopy today results are still pending patient will undergo chest wall ultrasound in order to assess the volume seen on chest x-ray and need for pleural tap WBC remains 30,000 now for the last 3 days she is on vancomycin meropenem clinically she is borderline hypotensive metaphases did not look toxic she is now being seen by infectious disease meter repairer 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 the Lucas Paul MD, MD Mar 04, 2020 18:32
--- NOTE | 2020-03-04 19:10 | NUR ---
NURSE HAND-OFF REPORT: Important Events on Shift:Bleeding from GI, EGD done, gastric ulcer and gastritis Patient Status: Full code Diet: NPO Pending Orders: N Pending Results/Labs:CBC, PT & PTT Pending MD notification:lab results Latest Vital Signs: Temperature 97.7 , Pulse 78 , B/P 101 /39 , Respiratory Rate 24 , O2 SAT 100 , Mechanical Ventilator, O2 Flow Rate . Vital Sign Comment: low BP EKG Rhythm: Sinus Rhythm Rhythm change?: N MD Notified?: - MD Response: Latest Chavarria Fall Score: 35 Fall Risk: Medium Risk Safety Measures: Call light Within Reach, Bed Alarm Zone 1, Side Rails Side Rails x2, Bed position Low and Locked. Fall Precautions: Yellow Socks Report given to patricia Wen RN.
--- NOTE | 2020-03-04 19:20 | NUR ---
NURSE NOTES: Received report from ERASMO Mcgovern. Pt asleep in bed A/O x1 and can track with eyes. No SOB or acute distress. On trach to vent Shiley 7 ,AC 14, TV 500, Fio2 100%, Peep of 5 saturating at 100%. With Gtube in place, intact patent and flushed but is turned off for NPO status. With left AC #22G running hypotonic @ 30cc/hr and right foot #24g and R hand #22 which are all intact and flushed. Pt has a FC that is draining dark yellow urine. HOB elevated. Bed rails are up x2 and wheels are locked in lowest position. Will continue plan of care
[2020-03-04 19:49] LABS: HEMATOCRIT 17.1 % (37.0-47.0); MEAN CORPUSCULAR VOLUME 88 FL (80-99); PLATELET COUNT 165 K/UL (150-450); RED BLOOD COUNT 1.94 M/UL (4.20-5.40); RED CELL DISTRIBUTION WIDTH 13.8 % (11.6-14.8)
[2020-03-04 19:51] LABS: WHITE BLOOD COUNT 30.1 K/UL (4.8-10.8)
[2020-03-04 19:52] LABS: HEMOGLOBIN 5.6 G/DL (12.0-16.0)
[2020-03-04 20:00] VITALS: BP 108/50
[2020-03-04 20:08] LABS: INR 1.5 (0.9-1.1)
--- NOTE | 2020-03-04 20:36 | NUR ---
NURSE NOTES: Dr Dong notified of H/H 5.6/01/03 and PT/PTT 16.3. Dr Dong called back and order to transfuse 2 units of Prbc and 1 unit FFP. Will carry orders.
[2020-03-04] MEDS: Dyna-Hex 2% Top Sol 2oz TOPIC SCH (20:45)
--- NOTE | 2020-03-04 21:00 | NUR ---
NURSE NOTES: CHG bath given and p200 mattress placed on bed. All linens changed and oral care provided.
--- NOTE | 2020-03-04 22:25 | NUR ---
NURSE NOTES: No signs of Allergic reactions noted 15 mins after start of FFP. Vital signs check bp 99/43, temp 97.7, HR 64, RR 24 , O2 sat 100%. Will continue to monitor.
[2020-03-05] VITALS: BP 102/47
--- NOTE | 2020-03-05 00:40 | NUR ---
NURSE NOTES: First unit of PRBC started with vitals as fiollows 97.5 temp, pulse 63, b/p 106/41. Will continue to monitor for first 15 minutes.
--- NOTE | 2020-03-05 01:00 | NUR ---
NURSE NOTES: No ASE from PRBC will continue to monitor.
--- NOTE | 2020-03-05 02:45 | NUR ---
NURSE NOTES: Finished first unit of PRBC with No ASE noted. Vitals as follows 97.2 temp, pulse 63, b/p 101/46. Will return adn get next unit of blood.
[2020-03-05 04:00] VITALS: BP 103/58
[2020-03-05] MEDS: Metoclopramide 10mg/2ml Inj IVP SCH ×3 (06:03→22:15)
--- NOTE | 2020-03-05 07:14 | NUR ---
NURSE HAND-OFF REPORT: Important Events on Shift: Still active bleeding. 2 units Prbc and 1 unit FFP given. Patient Status: Guarded Diet: NPO Pending Orders: Pending Results/Labs: Pending MD notification: Latest Vital Signs: Temperature 97.9 , Pulse 56 , B/P 103 /58 , Respiratory Rate 20 , O2 SAT 100 , Mechanical Ventilator, O2 Flow Rate . Vital Sign Comment: EKG Rhythm: Sinus Rhythm Rhythm change?: N MD Notified?: - MD Response: Latest Chavarria Fall Score: 35 Fall Risk: Medium Risk Safety Measures: Call light Within Reach, Bed Alarm Zone 1, Side Rails Side Rails x2, Bed position Low and Locked. Fall Precautions: Yellow Socks Report given to Shaniqua.
--- NOTE | 2020-03-05 07:20 | NUR ---
NURSE NOTES: Received report from patricia Wen RN. Pt is lying in bed, obtunded, but communicates via facial expression. Trach to vent tolerating setting of AC14, TV500, PEEP 5, FiO2 40% saturating 100%. G-tube is intact and patent. Pt is NPO. Norman catheter is intact and patent draining light raul urine. Peripheral IV in L forearm 22 G and R wrist 22G are intact and patent. Perma catheter in R upper chest is intact and patent. Bed is locked and in lowest position, bed alarm on, call light is with the pt. Recent labs, medications and MD orders reviewed. Will continue to monitor the pt. Will continue with the plan care.
[2020-03-05 07:41] LABS: HEMATOCRIT 25.3 % (37.0-47.0); HEMOGLOBIN 8.8 G/DL (12.0-16.0); MEAN CORPUSCULAR VOLUME 88 FL (80-99); PLATELET COUNT 134 K/UL (150-450); RED BLOOD COUNT 2.88 M/UL (4.20-5.40); RED CELL DISTRIBUTION WIDTH 13.2 % (11.6-14.8)
[2020-03-05 07:46] LABS: NEUTROPHILS % (AUTO) 87.6 % (45.0-75.0)
[2020-03-05 07:47] LABS: BASOPHILS % (AUTO) 0.5 % (0.0-2.0); LYMPHOCYTES % (AUTO) 8.3 % (20.0-45.0); MONOCYTES % (AUTO) 3.5 % (1.0-10.0)
[2020-03-05 07:56] LABS: ALBUMIN 2.1 G/DL (3.4-5.0); ALBUMIN/GLOBULIN RATIO 0.6 (1.0-2.7); BILIRUBIN,TOTAL 0.4 MG/DL (0.2-1.0); CREATININE 4.7 MG/DL (0.55-1.30); POTASSIUM 4.6 MMOL/L (3.5-5.1)
[2020-03-05 07:59] LABS: PHOSPHORUS 8.1 MG/DL (2.5-4.9)
[2020-03-05 08:00] VITALS: BP 94/47
[2020-03-05] MEDS: Midodrine 10mg tab GT SCH ×3 (09:13→17:18)
[2020-03-05] MEDS: Pantoprazole Inj IVP SCH ×2 (09:13→20:14)
[2020-03-05] MEDS: Dakin's 0.125% Soln (Quarter Strength) 16oz TOPIC SCH (09:13)
[2020-03-05] MEDS: Meropenem 500 MG in NS 55 ML IVPB SCH ×2 (09:14→22:15)
--- NOTE | 2020-03-05 09:30 | NUR ---
NURSE NOTES: Initial assessment done. Morning medications administered per order. VSS. Tolerating vent setting with O2 sat at 100%. Dr Dong informed of critical labs of hgb 8.8 and WBC 29. Values are improving. Will continue to closely monitor pt. Will continue with the plan of care.
--- NOTE | 2020-03-05 09:35 | Infectious Diseases Prog Note ---
Assessment/Plan 49yo F with: AMS Anemia to 1.9 on admission 03/02 Leukocytosis to 40 GPC bacteremia Possible UTI Possible pna Hypotension 03/02 BCx +GPC (prelim from lab is 2 different CONS) UA+, UCx >100k GNRs COVID rapid neg, PCR neg CXR: Tracheostomy again demonstrated. Interim placement of a right jugular tunneled dialysis catheter. There is infiltrate and volume loss in the left lung, particularly in the perihilar region, suprahilar region, and base. Conso lidation at the lung base is similar. The perihilar and suprahilar region consolidation is new. The right lung pleural space are clear. C.dif neg 03/03 BCx NTD AF Sepsis Leukocytosis Hypoxia on vent Pneumonia c/b L pleural effusion (recurrent, prior determined to be transudative) - s/p thora 01/21, 1050cc removed Volume overload, BNP >35,0000, likely 2/2 progressive CKD --> ESRD ?Pancreatitis, Lipase >2000 Acute anemia to 5s CONS bacteremia, ?contaminant Aflutter w/ RVR 01/13 BCx 2/2 +S. epi COVID PCR neg Flu neg CXR: Large left pleural effusion. Bilateral interstitial and airspace infiltrates versus edema MRSA nares neg 01/16 BCx NTD 01/17 BCx / +Staph auricularis (skin colonizer) 01/18 Resp cx +MDR CRE PsA (S-gent, I-colistin, R-polyB) 01/18 C.dif neg 01/18 CXR: Similar opacification of the left hemithorax likely representing combination of pleural effusion with atelectasis versus pneumonia/edema. Decreased but persistent hazy opacity throughout the right lung may represent edema versus infectious/inflammatory process. 01/20 BCx NTD 01/21 L thora 1050 cc removed, cx NTD 01/25 Wound cx from Gtube site +CRE Kleb pna (arnett-R) and MDR PsA (colonizers) 01/26 CT A/P: Limited exam, due to severe diffuse anasarca. Ascites. Bilateral pleural effusions. Basilar pulmonary atelectatic changes and consolidation. Gastrostomy. Atrophic left kidney with a nephroureteral stents again demonstrated. Possible retrococcygeal decubitus changes. Correlate with clinical findings, consider MRI if there is concern for sacral osteomyelitis. Right hip intertrochanteric fracture, also previously demonstrated. Left femoral dialysis catheter. Nonspecific right lobe liver lesion is unchanged, not well- demonstrated. ctasia bordering on aneurysmal dilatation and possible chronic dissection of the distal thoracic aorta, also previously described. JAVIER on CKD On previous admission Sep-Oct 2019 required HD for short period Going to start HD this admission again R/o COVID 01/14 COVID PCR neg 12/29 neg at [facility] per report H/o UTI 11/27 u/a wbc 30-40, nit neg, leuk +3; ucx ESBL P. mirablis, ESBL M. morganii 09/15/19 u/a wbc tnct, nit neg, leuk +3; ucx >100k MDR P. stuarti (S Ceftriaxo ne, Meropenem) 10/07 u/a wbc tnct, nit neg, leuk ; ucx >100k VRE 10/15/19 u/a wbc tnct; ucx >100k ESBL P. stuarti (S ertapenem, aztreonam) H/o transudative pleural effusion 11/28 Sp Thora (w: 169, PMN: 2%, L: 49% , LDH: 57, prot 2.5); cx Neg H/o PNA 10/15/19 Resp cx ESBL P. mirabilis, MDR P.a. (S only to Gent) 09/22 Resp cx + MDR PsA (S-gent; I-colistin; R-levofloxacin, Zosyn, angelo) 09/16/19 Sp cx ESBL P. mirablis H/o PPM site (pocket) infection and pocket abscess 2ry to S. epi-11/2018, sp >6weeks IV vancomycin 11/27 SP ABBIE: no evidence for vegetation on any of the valves 11/26/18 SP PPM removal: OR findings:The fibrous capsule enclosing the generator was then opened and there was a [id number] amount of yellowish fluid drainage. The generator was then removed.Atrial and ventricular leads were detached. The necrotic tissue of the pocket was then removed and the pocket was flushed with an antibiotic solution. Capsule, wound tissue and lead tip cx: Neg 2d echo: no vegetation seen US chest: 4.6 x 3.4 x 0.9 cm hypoechoic/anechoic area overlying left chest pacemaker power pack. This could represent either a discrete fluid collection or a focal area of very edematous tissue. Infected fluid pocket also possible. 11/18 Bcx 3/4 S. epi; 11/20 Bcx neg; 11/24 Bcx Neg; 11/27 Bcx Neg CAD s/p CABG GERD/gastritis Afib HTN Dysphagia sp GT Aortic dissection s/p repair 2018 S/p PPM Parkinson's Disease Schizophrenia Anxiety COPD Chronic resp failure s/p trach Hx of tracheal bleeding [place] resident ([facility]) VRE and MRSA colonized Plan: Cont vanco IV #4 given GPC bacteremia (prelim is CONS) Cont meropenem #4 given possible UTI, pna, hypotension F/u 03/03 repeat BCx - NTD F/u BCx 03/02 +GPCs Trend Hg, GIB Trend BP, WBC 01/31 SP angelo/inh tobra #10 for pna 01/23 SP vanco IV #10 given CONS/GPC bacteremia 01/16 SP Zosyn #2 01/14 SP dex 10mg in ED 12/10 SP IV Gentamycin #10 12/07 SP Meropenem #10 12/01 SP IV Vancomycin #5 11/28 Sp Cefepime #2 and IV Gentamycin x1 Monitor CBC/CMP Monitor temp curve, hemodynamics Monitor resp status D/w RN and micro lab and GI MD Thank you for this consult. [facility] will continue to follow. Subjective Allergies: Coded Allergies: No Known Allergies (Unverified , 10/10/17) AF WBC stable at 29 Still soft BPs Remains on vent EGD yesterday w/ stomach ulcer, no active bleeding BCx prelim w/ CONS, not VRE Objective Last 24 Hour Vital Signs Date Time Temp Pulse Resp B/P (MAP) Pulse Ox O2 Delivery O2 Flow Rate FiO2 03/05/20 08:00 Mechanical Ventilator 03/05/20 08:00 96.3 57 22 94/47 (63) 100 03/05/20 08:00 40 03/05/20 07:43 54 03/05/20 04:00 97.9 56 20 103/58 (73) 100 03/05/20 04:00 40 03/05/20 04:00 Mechanical Ventilator 03/05/20 04:00 92 03/05/20 03:05 66 22 40 03/05/20 00:00 64 03/05/20 00:00 Mechanical Ventilator 03/05/20 00:00 97.9 65 21 102/47 (65) 99 03/04/20 23:15 66 27 40 03/04/20 20:16 71 03/04/20 20:00 97.9 72 29 108/50 (69) 96 03/04/20 20:00 40 03/04/20 20:00 Mechanical Ventilator 03/04/20 19:20 73 29 40 03/04/20 16:00 40 03/04/20 16:00 Mechanical Ventilator 03/04/20 16:00 97.7 78 24 101/39 (59) 100 03/04/20 16:00 74 03/04/20 15:10 75 28 40 03/04/20 12:57 77 14 98 03/04/20 12:00 97.7 74 24 97/34 (55) 100 03/04/20 12:00 Mechanical Ventilator 03/04/20 12:00 40 03/04/20 11:51 77 14 98 03/04/20 11:38 77 03/04/20 11:30 88 25 40 Height (Feet): 5 Height (Inches): 3.00 Weight (Pounds): 128 Gen: NAD HEENT: NCAT, trach Pulm: BL chest rise on vent Abd: Soft, NTND, +PEG Ext: No c/c/e Skin: No visible rashes Neuro: Awake, minimally interactive Microbiology Date/Time Source Procedure Growth Status 03/03/20 13:25 Nasopharynx Coronavirus COVID-19 PCR (ROSITA) - Final Complete 03/03/20 11:16 Blood Blood Culture - Preliminary NO GROWTH AFTER 24 HOURS Resulted 03/03/20 11:06 Blood Blood Culture - Preliminary NO GROWTH AFTER 24 HOURS Resulted 03/02/20 10:00 Urine,Clean Catch Urine Culture - Preliminary Gram Negative Arnaud Resulted 03/02/20 10:00 Stool Clostridium difficile Toxin Assay - Final Complete 03/02/20 10:00 Nasopharynx SARS-CoV-2 RdRp Gene Assay - Final Complete 03/02/20 10:00 Blood Blood Culture - Preliminary Gram Positive Cocci Resulted 03/02/20 10:00 Blood Blood Culture - Preliminary Gram Positive Cocci Resulted Laboratory Tests Test 03/04/20 19:45 03/05/20 07:05 White Blood Count 30.1 K/UL (4.8-10.8) *H 29.0 K/UL (4.8-10.8) *H Red Blood Count 1.94 M/UL (4.20-5.40) L 2.88 M/UL (4.20-5.40) L Hemoglobin 5.6 G/DL (12.0-16.0) *L 8.8 G/DL (12.0-16.0) #L Hematocrit 17.1 % (37.0-47.0) L 25.3 % (37.0-47.0) #L Mean Corpuscular Volume 88 FL (80-99) 88 FL (80-99) Mean Corpuscular Hemoglobin 28.9 PG (27.0-31.0) 30.7 PG (27.0-31.0) Mean Corpuscular Hemoglobin Concent 32.8 G/DL (32.0-36.0) 34.9 G/DL (32.0-36.0) Red Cell Distribution Width 13.8 % (11.6-14.8) 13.2 % (11.6-14.8) Platelet Count 165 K/UL (150-450) 134 K/UL (150-450) L Mean Platelet Volume 4.8 FL (6.5-10.1) L 5.7 FL (6.5-10.1) L Neutrophils (%) (Auto) % (45.0-75.0) 87.6 % (45.0-75.0) H Lymphocytes (%) (Auto) % (20.0-45.0) 8.3 % (20.0-45.0) L Monocytes (%) (Auto) % (1.0-10.0) 3.5 % (1.0-10.0) Eosinophils (%) (Auto) % (0.0-3.0) 0.0 % (0.0-3.0) Basophils (%) (Auto) % (0.0-2.0) 0.5 % (0.0-2.0) Differential Total Cells Counted 100 Neutrophils % (Manual) 81 % (45-75) H Lymphocytes % (Manual) 17 % (20-45) L Monocytes % (Manual) 0 % (1-10) L Eosinophils % (Manual) 0 % (0-3) Basophils % (Manual) 0 % (0-2) Band Neutrophils 2 % (0-8) Platelet Estimate Adequate Platelet Morphology Normal Hypochromasia 3+ Anisocytosis 1+ Prothrombin Time 16.3 SEC (9.30-11.50) H Prothromb Time International Ratio 1.5 (0.9-1.1) H Activated Partial Thromboplast Time 31 SEC (23-33) Sodium Level 136 MMOL/L (136-145) Potassium Level 4.6 MMOL/L (3.5-5.1) Chloride Level 103 MMOL/L (98-107) Carbon Dioxide Level 10 MMOL/L (21-32) L Anion Gap 23 mmol/L (5-15) H Blood Urea Nitrogen 265 mg/dL (7-18) H Creatinine 4.7 MG/DL (0.55-1.30) H Estimat Glomerular Filtration Rate 9.9 mL/min (>60) Glucose Level 66 MG/DL (74-106) L Calcium Level 7.0 MG/DL (8.5-10.1) L Phosphorus Level 8.1 MG/DL (2.5-4.9) H Magnesium Level 2.9 MG/DL (1.8-2.4) H Total Bilirubin 0.4 MG/DL (0.2-1.0) Aspartate Amino Transf (AST/SGOT) 31 U/L (15-37) Alanine Aminotransferase (ALT/SGPT) 19 U/L (12-78) Alkaline Phosphatase 90 U/L (46-116) C-Reactive Protein, Quantitative 8.9 mg/dL (0.00-0.90) H Pro-B-Type Natriuretic Peptide > 78216 pg/mL (0-125) H Total Protein 5.4 G/DL (6.4-8.2) L Albumin 2.1 G/DL (3.4-5.0) L Globulin 3.3 g/dL Albumin/Globulin Ratio 0.6 (1.0-2.7) L Current Medications Medications (Trade) Dose Ordered Sig/Penny Route PRN Reason Start Time Stop Time Status Last Admin Dose Admin Acetaminophen (Tylenol) 650 mg Q6H PRN GT Mild Pain (Pain Scale 1-3) 03/02/20 22:30 04/01/20 22:29 Acetaminophen (Tylenol) 650 mg Q6H PRN GT Temp >100.5 03/03/20 03:00 04/01/20 22:29 Acetaminophen/ Hydrocodone Bitart ([place] 5/325) 1 tab Q6H PRN GT Severe Pain (Pain Scale 7-10) 03/02/20 22:00 03/09/20 21:59 Atorvastatin Calcium (Lipitor) 10 mg BEDTIME GT 03/03/20 21:00 06/01/20 20:59 03/03/20 21:23 Chlorhexidine Gluconate (Ling-Hex 2%) 1 applic DAILY@1999 TOPIC 03/03/20 20:00 06/01/20 19:59 03/04/20 20:45 Hydralazine HCl (Apresoline) 25 mg Q6H PRN GT For High Blood Pressure 03/02/20 22:00 05/31/20 21:59 Meropenem 500 mg/ Sodium Chloride 55 ml @ 110 mls/hr Q12H IVPB 03/03/20 10:00 03/08/20 09:59 03/05/20 09:14 Metoclopramide HCl (Reglan) 5 mg Q8HR IVP 03/04/20 11:45 04/03/20 11:44 03/05/20 06:03 Midodrine (Pro-Amatine) 10 mg THREE TIMES A DAY GT 03/04/20 13:00 06/01/20 12:59 03/05/20 09:13 Pantoprazole (Protonix) 40 mg EVERY 12 HOURS IVP 03/04/20 21:00 04/02/20 20:59 03/05/20 09:13 Polyethylene Glycol (Miralax) 17 gm BEDTIME PRN GT Constipation 03/02/20 22:00 04/01/20 21:59 Sodium Hypochlorite (Dakin's Quarter Strength) 1 applic DAILY TOPIC 03/04/20 09:00 04/03/20 08:59 03/05/20 09:13 Vancomycin HCl ([facility] pharmacy to dose) 1 ea DAILY PRN MISC Per rx protocol 03/03/20 09:15 04/02/20 09:14 Ro Pack M.D. Mar 05, 2020 09:35
--- NOTE | 2020-03-05 10:44 | Hematology/Onc Progress Note ---
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 --> Hgb goal >7. Transfuse prn. --> Epogen required in prior --> Medications have been reviewed --> low threshold for gi evaluation in case has occult + --> hgb 1.9-->5-->7.1-->8.8 --> 1 unit prbc1, 2 units 01/15, 03/02 --> gi eval as needed # Coagulopathy with inr 1.5 --> consider vit k/ffp as needed preprocedure --> labs noted # Thrombocytopenia likely reactive --> plt 200-->129 --> r/o dic # JAVIER initially >2 --> on ivfs --> per renal # Elevated d-dimer, likely infection related --> venous duplex prior neg --> in prior neg # Dysphagia s/p peg --> as per gi # Thoracic aortic dissection --> s/p repair early 2017 # Chronic Resp failure -> s/p trach/vent # Psychiatric history on ativan/haldol # [place] resident # Dvt ppx --> scds The timing of this note does not necessarily reflect the time of the patient was seen. Greatly appreciate consultation. Subjective Cardiovascular: Denies: no symptoms, chest pain, edema, irregular heart rate, lightheadedness, palpitations, syncope, other Allergies: Coded Allergies: No Known Allergies (Unverified , 10/10/17) All Systems: reviewed and negative except above Subjective 03/04 for 1 unit transfusion this am as hgb remains low, wbc better 03/05 egd was done did show large nonbleeding gastric ulcer, high tumor markers Objective Objective Current Medications Medications (Trade) Dose Ordered Sig/Penny Route PRN Reason Start Time Stop Time Status Last Admin Dose Admin Acetaminophen (Tylenol) 650 mg Q6H PRN GT Mild Pain (Pain Scale 1-3) 03/02/20 22:30 04/01/20 22:29 Acetaminophen (Tylenol) 650 mg Q6H PRN GT Temp >100.5 03/03/20 03:00 04/01/20 22:29 Acetaminophen/ Hydrocodone Bitart ([place] 5/325) 1 tab Q6H PRN GT Severe Pain (Pain Scale 7-10) 03/02/20 22:00 03/09/20 21:59 Albumin Human 100 ml @ 100 mls/hr ONCE ONCE IV 03/05/20 10:15 03/05/20 11:14 03/05/20 10:32 Atorvastatin Calcium (Lipitor) 10 mg BEDTIME GT 03/03/20 21:00 06/01/20 20:59 03/03/20 21:23 Chlorhexidine Gluconate (Ling-Hex 2%) 1 applic DAILY@2000 TOPIC 03/03/20 20:00 06/01/20 19:59 03/04/20 20:45 Hydralazine HCl (Apresoline) 25 mg Q6H PRN GT For High Blood Pressure 03/02/20 22:00 05/31/20 21:59 Meropenem 500 mg/ Sodium Chloride 55 ml @ 110 mls/hr Q12H IVPB 03/03/20 10:00 03/08/20 09:59 03/05/20 09:14 Metoclopramide HCl (Reglan) 5 mg Q8HR IVP 03/04/20 11:45 04/03/20 11:44 03/05/20 06:03 Midodrine (Pro-Amatine) 10 mg THREE TIMES A DAY GT 03/04/20 13:00 06/01/20 12:59 03/05/20 09:13 Pantoprazole (Protonix) 40 mg EVERY 12 HOURS IVP 03/04/20 21:00 04/02/20 20:59 03/05/20 09:13 Polyethylene Glycol (Miralax) 17 gm BEDTIME PRN GT Constipation 03/02/20 22:00 04/01/20 21:59 Sodium Hypochlorite (Dakin's Quarter Strength) 1 applic DAILY TOPIC 03/04/20 09:00 04/03/20 08:59 03/05/20 09:13 Vancomycin HCl (Vanco pharmacy to dose) 1 ea DAILY PRN MISC Per rx protocol 03/03/20 09:15 04/02/20 09:14 Last 24 Hour Vital Signs Date Time Temp Pulse Resp B/P (MAP) Pulse Ox O2 Delivery O2 Flow Rate FiO2 03/05/20 08:00 Mechanical Ventilator 03/05/20 08:00 96.3 57 22 94/47 (63) 100 03/05/20 08:00 40 03/05/20 07:43 54 03/05/20 04:00 97.9 56 20 103/58 (73) 100 03/05/20 04:00 40 03/05/20 04:00 Mechanical Ventilator 03/05/20 04:00 92 03/05/20 03:05 66 22 40 03/05/20 00:00 64 03/05/20 00:00 Mechanical Ventilator 03/05/20 00:00 97.9 65 21 102/47 (65) 99 03/04/20 23:15 66 27 40 03/04/20 20:16 71 03/04/20 20:00 97.9 72 29 108/50 (69) 96 03/04/20 20:00 40 03/04/20 20:00 Mechanical Ventilator 03/04/20 19:20 73 29 40 03/04/20 16:00 40 03/04/20 16:00 Mechanical Ventilator 03/04/20 16:00 97.7 78 24 101/39 (59) 100 03/04/20 16:00 74 03/04/20 15:10 75 28 40 03/04/20 12:57 77 14 98 03/04/20 12:00 97.7 74 24 97/34 (55) 100 03/04/20 12:00 Mechanical Ventilator 03/04/20 12:00 40 03/04/20 11:51 77 14 98 03/04/20 11:38 77 03/04/20 11:30 88 25 40 03/04/20 08:00 40 03/04/20 08:00 98.2 85 26 104/51 (68) 96 03/04/20 08:00 Mechanical Ventilator 03/04/20 07:44 94 03/04/20 07:05 87 22 40 03/04/20 04:00 98.8 82 21 125/55 (78) 98 03/04/20 04:00 Mechanical Ventilator 03/04/20 04:00 40 03/04/20 03:40 79 28 40 03/04/20 03:11 78 03/04/20 00:00 Mechanical Ventilator 03/04/20 00:00 98.8 81 16 107/51 (69) 100 03/03/20 23:29 77 24 40 03/03/20 23:07 78 03/03/20 20:00 99.0 80 18 97/55 (69) 100 03/03/20 20:00 40 03/03/20 20:00 Mechanical Ventilator 03/03/20 19:56 83 25 40 03/03/20 19:33 83 03/03/20 16:00 97.8 86 14 95/44 (61) 100 03/03/20 16:00 40 03/03/20 16:00 Mechanical Ventilator 03/03/20 15:54 86 03/03/20 15:15 87 25 40 03/03/20 12:00 88 03/03/20 12:00 40 03/03/20 12:00 Mechanical Ventilator 03/03/20 11:41 98.1 86 18 116/70 (85) 100 03/03/20 11:15 86 24 40 03/03/20 11:00 107/45 (65) Intake and Output 03/04/20 03/05/20 19:00 07:00 Intake Total 60 ml Output Total 50 ml 150 ml Balance 10 ml -150 ml Intake Free Water 60 ml Output Urine Total 50 ml 150 ml # Bowel Movements 2 2 Labs Test 03/02/20 10:50 03/02/20 16:30 03/03/20 04:24 03/03/20 04:30 Prothrombin Time 15.0 SEC (9.30-11.50) Prothromb Time International Ratio 1.4 (0.9-1.1) Activated Partial Thromboplast Time 26 SEC (23-33) Lactic Acid Level 4.50 mmol/L (0.4-2.0) 3.00 mmol/L (0.66-2.22) White Blood Count 40.2 K/UL (4.8-10.8) 27.4 K/UL (4.8-10.8) Red Blood Count 1.82 M/UL (4.20-5.40) 2.42 M/UL (4.20-5.40) Hemoglobin 5.1 G/DL (12.0-16.0) 7.1 G/DL (12.0-16.0) Hematocrit 16.3 % (37.0-47.0) 20.6 % (37.0-47.0) Mean Corpuscular Volume 89 FL (80-99) 85 FL (80-99) Mean Corpuscular Hemoglobin 28.2 PG (27.0-31.0) 29.2 PG (27.0-31.0) Mean Corpuscular Hemoglobin Concent 31.5 G/DL (32.0-36.0) 34.4 G/DL (32.0-36.0) Red Cell Distribution Width 14.5 % (11.6-14.8) 14.2 % (11.6-14.8) Platelet Count 246 K/UL (150-450) 265 K/UL (150-450) Mean Platelet Volume 5.8 FL (6.5-10.1) 5.7 FL (6.5-10.1) Neutrophils (%) (Auto) % (45.0-75.0) % (45.0-75.0) Lymphocytes (%) (Auto) % (20.0-45.0) % (20.0-45.0) Monocytes (%) (Auto) % (1.0-10.0) % (1.0-10.0) Eosinophils (%) (Auto) % (0.0-3.0) % (0.0-3.0) Basophils (%) (Auto) % (0.0-2.0) % (0.0-2.0) Differential Total Cells Counted 100 100 Neutrophils % (Manual) 69 % (45-75) 85 % (45-75) Lymphocytes % (Manual) 5 % (20-45) 3 % (20-45) Monocytes % (Manual) 4 % (1-10) 4 % (1-10) Eosinophils % (Manual) 0 % (0-3) 0 % (0-3) Basophils % (Manual) 0 % (0-2) 0 % (0-2) Metamyelocytes % 1 % (0-0) Myelocytes % 1 % (0-0) 1 % (0-0) Band Neutrophils 20 % (0-8) 7 % (0-8) Platelet Estimate Adequate Adequate Platelet Morphology Normal Normal Hypochromasia 3+ 1+ Anisocytosis 1+ 1+ Geovanna Cells 1+ Red Blood Cell Morphology Normal Polychromasia 1+ Sodium Level 122 MMOL/L (136-145) Potassium Level 4.4 MMOL/L (3.5-5.1) Chloride Level 87 MMOL/L (98-107) Carbon Dioxide Level 16 MMOL/L (21-32) Anion Gap 19 mmol/L (5-15) Blood Urea Nitrogen 224 mg/dL (7-18) Creatinine 4.4 MG/DL (0.55-1.30) Estimat Glomerular Filtration Rate 10.8 mL/min (>60) Glucose Level 67 MG/DL (74-106) Hemoglobin A1c 5.4 % (4.3-6.0) Uric Acid 8.4 MG/DL (2.6-7.2) Calcium Level 8.7 MG/DL (8.5-10.1) Phosphorus Level 3.6 MG/DL (2.5-4.9) Magnesium Level 3.0 MG/DL (1.8-2.4) Total Bilirubin 0.3 MG/DL (0.2-1.0) Direct Bilirubin 0.2 MG/DL (0.0-0.3) Aspartate Amino Transf (AST/SGOT) 65 U/L (15-37) Alanine Aminotransferase (ALT/SGPT) 27 U/L (12-78) Alkaline Phosphatase 127 U/L (46-116) Total Protein 6.4 G/DL (6.4-8.2) Albumin 1.9 G/DL (3.4-5.0) Urine Random Sodium 36 mmol/L (20-110) Test 03/03/20 17:50 03/03/20 18:45 03/04/20 05:00 03/04/20 19:45 Stool Occult Blood Positive (NEGATIVE) White Blood Count 32.6 K/UL (4.8-10.8) 30.1 K/UL (4.8-10.8) 30.1 K/UL (4.8-10.8) Red Blood Count 1.86 M/UL (4.20-5.40) 2.43 M/UL (4.20-5.40) 1.94 M/UL (4.20-5.40) Hemoglobin 5.2 G/DL (12.0-16.0) 7.1 G/DL (12.0-16.0) 5.6 G/DL (12.0-16.0) Hematocrit 15.8 % (37.0-47.0) 21.1 % (37.0-47.0) 17.1 % (37.0-47.0) Mean Corpuscular Volume 85 FL (80-99) 87 FL (80-99) 88 FL (80-99) Mean Corpuscular Hemoglobin 27.9 PG (27.0-31.0) 29.2 PG (27.0-31.0) 28.9 PG (27.0-31.0) Mean Corpuscular Hemoglobin Concent 32.8 G/DL (32.0-36.0) 33.7 G/DL (32.0-36.0) 32.8 G/DL (32.0-36.0) Red Cell Distribution Width 14.9 % (11.6-14.8) 14.2 % (11.6-14.8) 13.8 % (11.6-14.8) Platelet Count 244 K/UL (150-450) 245 K/UL (150-450) 165 K/UL (150-450) Mean Platelet Volume 4.9 FL (6.5-10.1) 5.5 FL (6.5-10.1) 4.8 FL (6.5-10.1) Neutrophils (%) (Auto) % (45.0-75.0) % (45.0-75.0) % (45.0-75.0) Lymphocytes (%) (Auto) % (20.0-45.0) % (20.0-45.0) % (20.0-45.0) Monocytes (%) (Auto) % (1.0-10.0) % (1.0-10.0) % (1.0-10.0) Eosinophils (%) (Auto) % (0.0-3.0) % (0.0-3.0) % (0.0-3.0) Basophils (%) (Auto) % (0.0-2.0) % (0.0-2.0) % (0.0-2.0) Differential Total Cells Counted 100 100 100 Neutrophils % (Manual) 73 % (45-75) 89 % (45-75) 81 % (45-75) Lymphocytes % (Manual) 6 % (20-45) 5 % (20-45) 17 % (20-45) Monocytes % (Manual) 2 % (1-10) 4 % (1-10) 0 % (1-10) Eosinophils % (Manual) 0 % (0-3) 0 % (0-3) 0 % (0-3) Basophils % (Manual) 0 % (0-2) 0 % (0-2) 0 % (0-2) Band Neutrophils 19 % (0-8) 2 % (0-8) 2 % (0-8) Platelet Estimate Adequate Adequate Adequate Platelet Morphology Normal Normal Normal Polychromasia 1+ 1+ Poikilocytosis 1+ Anisocytosis 2+ 1+ Geovanna Cells 2+ Sodium Level 129 MMOL/L (136-145) 132 MMOL/L (136-145) Potassium Level 4.0 MMOL/L (3.5-5.1) 4.0 MMOL/L (3.5-5.1) Chloride Level 95 MMOL/L (98-107) 97 MMOL/L (98-107) Carbon Dioxide Level 14 MMOL/L (21-32) 12 MMOL/L (21-32) Anion Gap 20 mmol/L (5-15) 23 mmol/L (5-15) Blood Urea Nitrogen 246 mg/dL (7-18) 244 mg/dL (7-18) Creatinine 4.6 MG/DL (0.55-1.30) 4.6 MG/DL (0.55-1.30) Estimat Glomerular Filtration Rate 10.2 mL/min (>60) 10.2 mL/min (>60) Glucose Level 89 MG/DL (74-106) 71 MG/DL (74-106) Calcium Level 8.2 MG/DL (8.5-10.1) 7.6 MG/DL (8.5-10.1) Red Blood Cell Morphology Normal Hypochromasia 1+ 3+ Erythrocyte Sedimentation Rate 55 MM/HR (0-20) Prothrombin Time 15.8 SEC (9.30-11.50) 16.3 SEC (9.30-11.50) Prothromb Time International Ratio 1.5 (0.9-1.1) 1.5 (0.9-1.1) Activated Partial Thromboplast Time 31 SEC (23-33) 31 SEC (23-33) Lactic Acid Level 0.40 mmol/L (0.4-2.0) Uric Acid 10.0 MG/DL (2.6-7.2) Phosphorus Level 5.1 MG/DL (2.5-4.9) Magnesium Level 2.8 MG/DL (1.8-2.4) Total Bilirubin 0.4 MG/DL (0.2-1.0) Gamma Glutamyl Transpeptidase 13 U/L (5-85) Aspartate Amino Transf (AST/SGOT) 40 U/L (15-37) Alanine Aminotransferase (ALT/SGPT) 20 U/L (12-78) Alkaline Phosphatase 116 U/L (46-116) Lactate Dehydrogenase 209 U/L (81-234) C-Reactive Protein, Quantitative 18.6 mg/dL (0.00-0.90) Pro-B-Type Natriuretic Peptide > 08750 pg/mL (0-125) Total Protein 5.7 G/DL (6.4-8.2) Albumin 1.9 G/DL (3.4-5.0) Globulin 3.8 g/dL Albumin/Globulin Ratio 0.5 (1.0-2.7) Amylase Level 141 U/L (25-115) Lipase 660 U/L (73-393) Vitamin B12 Level > 2000 PG/ML (193-986) Folate 37.2 NG/ML (8.6-58.9) Vancomycin Level Trough 11.8 ug/mL (5.0-12.0) Test 03/05/20 07:05 White Blood Count 29.0 K/UL (4.8-10.8) Red Blood Count 2.88 M/UL (4.20-5.40) Hemoglobin 8.8 G/DL (12.0-16.0) Hematocrit 25.3 % (37.0-47.0) Mean Corpuscular Volume 88 FL (80-99) Mean Corpuscular Hemoglobin 30.7 PG (27.0-31.0) Mean Corpuscular Hemoglobin Concent 34.9 G/DL (32.0-36.0) Red Cell Distribution Width 13.2 % (11.6-14.8) Platelet Count 134 K/UL (150-450) Mean Platelet Volume 5.7 FL (6.5-10.1) Neutrophils (%) (Auto) 87.6 % (45.0-75.0) Lymphocytes (%) (Auto) 8.3 % (20.0-45.0) Monocytes (%) (Auto) 3.5 % (1.0-10.0) Eosinophils (%) (Auto) 0.0 % (0.0-3.0) Basophils (%) (Auto) 0.5 % (0.0-2.0) Sodium Level 136 MMOL/L (136-145) Potassium Level 4.6 MMOL/L (3.5-5.1) Chloride Level 103 MMOL/L (98-107) Carbon Dioxide Level 10 MMOL/L (21-32) Anion Gap 23 mmol/L (5-15) Blood Urea Nitrogen 265 mg/dL (7-18) Creatinine 4.7 MG/DL (0.55-1.30) Estimat Glomerular Filtration Rate 9.9 mL/min (>60) Glucose Level 66 MG/DL (74-106) Calcium Level 7.0 MG/DL (8.5-10.1) Phosphorus Level 8.1 MG/DL (2.5-4.9) Magnesium Level 2.9 MG/DL (1.8-2.4) Total Bilirubin 0.4 MG/DL (0.2-1.0) Aspartate Amino Transf (AST/SGOT) 31 U/L (15-37) Alanine Aminotransferase (ALT/SGPT) 19 U/L (12-78) Alkaline Phosphatase 90 U/L (46-116) C-Reactive Protein, Quantitative 8.9 mg/dL (0.00-0.90) Pro-B-Type Natriuretic Peptide > 66457 pg/mL (0-125) Total Protein 5.4 G/DL (6.4-8.2) Albumin 2.1 G/DL (3.4-5.0) Globulin 3.3 g/dL Albumin/Globulin Ratio 0.6 (1.0-2.7) Height (Feet): 5 Height (Inches): 3.00 Weight (Pounds): 128 Objective Physical Exam: Vitals: reviewed General: NAD HEENT: nc, at Neck: supple ++trach/vent Chest: clear breath sounds bilaterally Cardiovascular: RRR, no s3, s4 Abdomen: soft, nontender, nd +gtube Extremities: no cce, normal range of motion Neuro: alert Evan Muhammad MD Mar 05, 2020 10:44
--- NOTE | 2020-03-05 11:00 | NUR ---
NURSE NOTES: Pt is having dialysis. BP is stable. Will continue to monitor pt.
--- NOTE | 2020-03-05 11:30 | NUR ---
NURSE NOTES: Tube feeding of Nepro restarted at 10cc/hr with goal of 30cc/hr per Dr. Ibrahim. Will continue to closely monitor pt.
--- NOTE | 2020-03-05 11:39 | General Progress Note ---
Subjective ROS Limited/Unobtainable: No Allergies: Coded Allergies: No Known Allergies (Unverified , 10/10/17) Objective Last 24 Hour Vital Signs Date Time Temp Pulse Resp B/P (MAP) Pulse Ox O2 Delivery O2 Flow Rate FiO2 03/05/20 08:00 Mechanical Ventilator 03/05/20 08:00 96.3 57 22 94/47 (63) 100 03/05/20 08:00 40 03/05/20 07:43 54 03/05/20 04:00 97.9 56 20 103/58 (73) 100 03/05/20 04:00 40 03/05/20 04:00 Mechanical Ventilator 03/05/20 04:00 92 03/05/20 03:05 66 22 40 03/05/20 00:00 64 03/05/20 00:00 Mechanical Ventilator 03/05/20 00:00 97.9 65 21 102/47 (65) 99 03/04/20 23:15 66 27 40 03/04/20 20:16 71 03/04/20 20:00 97.9 72 29 108/50 (69) 96 03/04/20 20:00 40 03/04/20 20:00 Mechanical Ventilator 03/04/20 19:20 73 29 40 03/04/20 16:00 40 03/04/20 16:00 Mechanical Ventilator 03/04/20 16:00 97.7 78 24 101/39 (59) 100 03/04/20 16:00 74 03/04/20 15:10 75 28 40 03/04/20 12:57 77 14 98 03/04/20 12:00 97.7 74 24 97/34 (55) 100 03/04/20 12:00 Mechanical Ventilator 03/04/20 12:00 40 03/04/20 11:51 77 14 98 Intake and Output 03/04/20 03/05/20 19:00 07:00 Intake Total 60 ml Output Total 50 ml 150 ml Balance 10 ml -150 ml Intake Free Water 60 ml Output Urine Total 50 ml 150 ml # Bowel Movements 2 2 Laboratory Tests 03/04/20 19:45: White Blood Count 30.1*H, Red Blood Count 1.94L, Hemoglobin 5.6*L, Hematocrit 17.1L, Mean Corpuscular Volume 88, Mean Corpuscular Hemoglobin 28.9, Mean Corpuscular Hemoglobin Concent 32.8, Red Cell Distribution Width 13.8, Platelet Count 165, Mean Platelet Volume 4.8L, Neutrophils (%) (Auto) , Lymphocytes (%) (Auto) , Monocytes (%) (Auto) , Eosinophils (%) (Auto) , Basophils (%) (Auto) , Differential Total Cells Counted 100, Neutrophils % (Manual) 81H, Lymphocytes % (Manual) 17L, Monocytes % (Manual) 0L, Eosinophils % (Manual) 0, Basophils % (Manual) 0, Band Neutrophils 2, Platelet Estimate Adequate, Platelet Morphology Normal, Hypochromasia 3+, Anisocytosis 1+, Prothrombin Time 16.3H, Prothromb Time International Ratio 1.5H, Activated Partial Thromboplast Time 31 03/05/20 07:05: White Blood Count 29.0*H, Red Blood Count 2.88L, Hemoglobin 8.8#L, Hematocrit 25.3#L, Mean Corpuscular Volume 88, Mean Corpuscular Hemoglobin 30.7, Mean Corpuscular Hemoglobin Concent 34.9, Red Cell Distribution Width 13.2, Platelet Count 134L, Mean Platelet Volume 5.7L, Neutrophils (%) (Auto) 87.6H, Lymphocytes (%) (Auto) 8.3L, Monocytes (%) (Auto) 3.5, Eosinophils (%) (Auto) 0.0, Basophils (%) (Auto) 0.5, Sodium Level 136, Potassium Level 4.6, Chloride Level 103, Carbon Dioxide Level 10L, Anion Gap 23H, Blood Urea Nitrogen 265H, Creatinine 4.7H, Estimat Glomerular Filtration Rate 9.9, Glucose Level 66L, Calcium Level 7.0L, Phosphorus Level 8.1H, Magnesium Level 2.9H, Total Bilirubin 0.4, Aspartate Amino Transf (AST/SGOT) 31, Alanine Aminotransferase (ALT/SGPT) 19, Alkaline Phosphatase 90, C-Reactive Protein, Quantitative 8.9H, Pro-B-Type Natriuretic Peptide > 64091G, Total Protein 5.4L, Albumin 2.1L, Globulin 3.3, Albumin/Globulin Ratio 0.6L Height (Feet): 5 Height (Inches): 3.00 Weight (Pounds): 128 General Appearance: no apparent distress EENT: normal ENT inspection Neck: supple Cardiovascular: normal rate Respiratory/Chest: decreased breath sounds Abdomen: normal bowel sounds, non tender, soft Extremities: non-tender Assessment/Plan Problem List: (1) Hx of CABG ICD Codes: Z95.1 - Presence of aortocoronary bypass graft SNOMED: 862063224, 463103054 (2) History of tracheostomy ICD Codes: Z98.890 - Other specified postprocedural states SNOMED: 460390750, 422086515 (3) PEG (percutaneous endoscopic gastrostomy) status ICD Codes: Z93.1 - Gastrostomy status SNOMED: 672995484, 692638287 (4) Renal failure ICD Codes: N19 - Unspecified kidney failure SNOMED: 87648927, 958136553 (5) Severe anemia ICD Codes: D64.9 - Anemia, unspecified SNOMED: 771817361 Assessment/Plan: s/p EGD gastric ulcer on ppi resume GTF fu H&H Inder Mccauley MD Mar 05, 2020 11:39
[2020-03-05 12:00] VITALS: BP 122/74
--- NOTE | 2020-03-05 12:35 | Nephrology Progress Note ---
Assessment/Plan Problem List: (1) Renal failure (ARF), acute on chronic (2) Anemia (3) Hyponatremia (4) Respiratory failure Assessment (1) JAVIER (acute kidney injury) (2) Renal failure (ARF), acute on chronic (3) Feeding by G-tube (4) Tracheostomy in place (5) Electrolyte imbalance, hyponatremia (6) Anemia, severe (7) Respiratory failure, acute and chronic (8) history of elevated lipase, pancreatitis (9) Elevated troponin I (10) Sepsis Plan March 05: Labs reviewed. Patient did not receive dialysis until this morning. Proceed with dialysis. Continue to monitor renal parameters and hemoglobin and hematocrit. March 04: Labs reviewed. Hemoglobin lower. Patient actively bleeding. Was not dialyzed yesterday. Due for GI endoscopy. Continue fluid challenge. Transfusion as needed. Dialysis today. March 03: Labs reviewed. Dialysis ordered. Blood pressure medication all discontinued due to hypotensive state. Albumin bolus given. Continue to monitor renal parameters. Medication list reviewed. Midodrin for low blood pressure ordered Subjective ROS Limited/Unobtainable: Yes Objective Objective Last 24 Hour Vital Signs Date Time Temp Pulse Resp B/P (MAP) Pulse Ox O2 Delivery O2 Flow Rate FiO2 03/05/20 12:00 Mechanical Ventilator 03/05/20 12:00 62 03/05/20 12:00 40 03/05/20 12:00 96.5 70 20 122/74 (90) 100 03/05/20 08:00 Mechanical Ventilator 03/05/20 08:00 96.3 57 22 94/47 (63) 100 03/05/20 08:00 40 03/05/20 07:43 54 03/05/20 04:00 97.9 56 20 103/58 (73) 100 03/05/20 04:00 40 03/05/20 04:00 Mechanical Ventilator 03/05/20 04:00 92 03/05/20 03:05 66 22 40 03/05/20 00:00 64 03/05/20 00:00 Mechanical Ventilator 03/05/20 00:00 97.9 65 21 102/47 (65) 99 03/04/20 23:15 66 27 40 03/04/20 20:16 71 03/04/20 20:00 97.9 72 29 108/50 (69) 96 03/04/20 20:00 40 03/04/20 20:00 Mechanical Ventilator 03/04/20 19:20 73 29 40 03/04/20 16:00 40 03/04/20 16:00 Mechanical Ventilator 03/04/20 16:00 97.7 78 24 101/39 (59) 100 03/04/20 16:00 74 03/04/20 15:10 75 28 40 03/04/20 12:57 77 14 98 Intake and Output 03/04/20 03/05/20 19:00 07:00 Intake Total 60 ml Output Total 50 ml 150 ml Balance 10 ml -150 ml Intake Free Water 60 ml Output Urine Total 50 ml 150 ml # Bowel Movements 2 2 Laboratory Tests 03/04/20 19:45: White Blood Count 30.1*H, Red Blood Count 1.94L, Hemoglobin 5.6*L, Hematocrit 17.1L, Mean Corpuscular Volume 88, Mean Corpuscular Hemoglobin 28.9, Mean Corpuscular Hemoglobin Concent 32.8, Red Cell Distribution Width 13.8, Platelet Count 165, Mean Platelet Volume 4.8L, Neutrophils (%) (Auto) , Lymphocytes (%) (Auto) , Monocytes (%) (Auto) , Eosinophils (%) (Auto) , Basophils (%) (Auto) , Differential Total Cells Counted 100, Neutrophils % (Manual) 81H, Lymphocytes % (Manual) 17L, Monocytes % (Manual) 0L, Eosinophils % (Manual) 0, Basophils % (Manual) 0, Band Neutrophils 2, Platelet Estimate Adequate, Platelet Morphology Normal, Hypochromasia 3+, Anisocytosis 1+, Prothrombin Time 16.3H, Prothromb Time International Ratio 1.5H, Activated Partial Thromboplast Time 31 03/05/20 07:05: White Blood Count 29.0*H, Red Blood Count 2.88L, Hemoglobin 8.8#L, Hematocrit 25.3#L, Mean Corpuscular Volume 88, Mean Corpuscular Hemoglobin 30.7, Mean Corpuscular Hemoglobin Concent 34.9, Red Cell Distribution Width 13.2, Platelet Count 134L, Mean Platelet Volume 5.7L, Neutrophils (%) (Auto) 87.6H, Lymphocytes (%) (Auto) 8.3L, Monocytes (%) (Auto) 3.5, Eosinophils (%) (Auto) 0.0, Basophils (%) (Auto) 0.5, Sodium Level 136, Potassium Level 4.6, Chloride Level 103, Carbon Dioxide Level 10L, Anion Gap 23H, Blood Urea Nitrogen 265H, Creatinine 4.7H, Estimat Glomerular Filtration Rate 9.9, Glucose Level 66L, Calcium Level 7.0L, Phosphorus Level 8.1H, Magnesium Level 2.9H, Total Bilirubin 0.4, Aspartate Amino Transf (AST/SGOT) 31, Alanine Aminotransferase (ALT/SGPT) 19, Alkaline Phosphatase 90, C-Reactive Protein, Quantitative 8.9H, Pro-B-Type Natriuretic Peptide > 14763G, Total Protein 5.4L, Albumin 2.1L, Globulin 3.3, Albumin/Globulin Ratio 0.6L Height (Feet): 5 Height (Inches): 3.00 Weight (Pounds): 128 General Appearance: no apparent distress, lethargic EENT: other - Trached and vent Cardiovascular: normal rate, bradycardia Respiratory/Chest: decreased breath sounds Abdomen: distended Johnny Houston MD Mar 05, 2020 12:35
--- NOTE | 2020-03-05 12:57 | Diagnostic Imaging Report ---
EXAM: US Chest CLINICAL HISTORY: Shortness of breath. COMPARISON: None FINDINGS: Targeted ultrasound examination of the left posterior chest performed. Only a small left effusion is noted. IMPRESSION: SMALL LEFT EFFUSION.
--- NOTE | 2020-03-05 13:30 | Consultation ---
DATE OF CONSULTATION: 03/05/2020 PULMONARY CONSULTATION CONSULTING PHYSICIAN: Elijah Stephen MD. HISTORY OF PRESENT ILLNESS: This is a 49-year-old female, who has a chronic tracheostomy and ventilator. She is admitted to the hospital with renal dysfunction and dehydration. The patient was also altered in the emergency room and had a low hemoglobin requiring transfusions. She also received broad-spectrum antibiotics. At my evaluation, the patient is not verbal and unable to answer questions. PAST MEDICAL HISTORY: Notable for CABG, previous tracheostomy and gastrostomy, chronic respiratory dependence, permanent pacemaker, previous tracheostomy repair. MEDICATIONS: Her current list of medication includes Lipitor, hydralazine, meropenem, Reglan, midodrine, Protonix, vancomycin, vitamin K. REVIEW OF SYSTEMS: Not obtainable. PHYSICAL EXAMINATION: GENERAL: Reveals a 49-year-old female. Tracheostomy site is clean. CHEST: Clear breath sounds bilaterally. ABDOMEN: Soft. EXTREMITIES: There is no edema. G-tube is clean. VITAL SIGNS: Blood pressure 94/40, heart rate 58, respirations 20. She is on mechanical respirator, FiO2 40%, pulse oximetry 100%. LABORATORY DATA: Lab testing shows initial hemoglobin of 1.9, subsequently 5.1 and now hemoglobin is 8.8, white count , platelet count is 134,000. Chemistries show creatinine of 4.7. ABG shows pH 7.11, pCO2 of 44, pO2 of 37. Toxicology is negative. Stool occult blood is positive. Urinalysis shows multiple pus cells. IMAGING STUDIES: X-ray chest obtained, which shows a small left effusion. IMPRESSION: 1. Chronic respiratory failure. 2. Mechanical ventilation. 3. Chronic tracheostomy. 4. Chronic G-tube. 5. Anemia. 6. Renal failure. 7. Leukocytosis and sepsis. DISCUSSION: Agree with admission and care. Her urine culture is growing out gram-negative rods. Therefore, I suspect she has UTI with sepsis. She is also bacteremic gram-positive cocci. Her COVID testing is at this time negative. We will continue assist-control mechanical ventilation, FiO2 40%. We will follow carefully. ID and Hematology following. Elijah Tirmizi, M.D. DR: ERNIE JOB#: [id number] CC:
--- NOTE | 2020-03-05 14:15 | NUR ---
NURSE NOTES: Pt given sponge bath, gown and linens changed. Sacral ulcer cleaned and dressing changed. Pt had large bowel movement of black tarry stool and some fresh blood. Dr. Arreguin is informed, awaiting response. Dialysis done. VSS. Tolerating vent setting saturating 98-100%. Will continue to closely monitor pt.
--- NOTE | 2020-03-05 14:41 | NUR ---
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
[2020-03-05 16:00] VITALS: BP 103/42
--- NOTE | 2020-03-05 17:45 | NUR ---
NURSE NOTES: Informed Dr. Mccauley of pt's bowel movement that is black tarry mixed with fresh blood, and the blood gastric content that comes through G-tube, blocking the feeding. Dr. Mccauley ordered to stop the feeding and put pt NPO, stat CBC, and if Hgb is < 7 to transfuse 1 unit of PRBC. Will continue to monitor pt. Will continue with the plan of care.
--- NOTE | 2020-03-05 18:03 | Surgery Progress Note ---
Surgery Progress Note Subjective Additional Comments transfused prbc h/h improved ill appearing on support Objective Last 24 Hour Vital Signs Date Time Temp Pulse Resp B/P (MAP) Pulse Ox O2 Delivery O2 Flow Rate FiO2 03/05/20 16:00 40 03/05/20 16:00 58 03/05/20 16:00 Mechanical Ventilator 03/05/20 16:00 40 03/05/20 16:00 96.4 58 20 103/42 (62) 100 03/05/20 14:50 69 30 40 03/05/20 12:00 Mechanical Ventilator 03/05/20 12:00 62 03/05/20 12:00 40 03/05/20 12:00 96.5 70 20 122/74 (90) 100 03/05/20 11:21 66 33 40 03/05/20 08:00 Mechanical Ventilator 03/05/20 08:00 96.3 57 22 94/47 (63) 100 03/05/20 08:00 40 03/05/20 07:43 54 03/05/20 07:16 59 23 40 03/05/20 04:00 97.9 56 20 103/58 (73) 100 03/05/20 04:00 40 03/05/20 04:00 Mechanical Ventilator 03/05/20 04:00 92 03/05/20 03:05 66 22 40 03/05/20 00:00 64 03/05/20 00:00 Mechanical Ventilator 03/05/20 00:00 97.9 65 21 102/47 (65) 99 03/04/20 23:15 66 27 40 03/04/20 20:16 71 03/04/20 20:00 97.9 72 29 108/50 (69) 96 03/04/20 20:00 40 03/04/20 20:00 Mechanical Ventilator 03/04/20 19:20 73 29 40 I&O Intake and Output 03/04/20 03/05/20 18:59 06:59 Intake Total 115 ml Output Total 50 ml 150 ml Balance 65 ml -150 ml Intake Free Water 60 ml IV Total 55 ml Output Urine Total 50 ml 150 ml # Bowel Movements 2 2 Dressing: saturated Cardiovascular: RSR Respiratory: decreased breath sounds Abdomen: non-tender, present bowel sounds Extremities: no tenderness, no cyanosis Laboratory Tests Test 03/04/20 19:45 1/21/21 07:05 White Blood Count 30.1 K/UL (4.8-10.8) *H 29.0 K/UL (4.8-10.8) *H Red Blood Count 1.94 M/UL (4.20-5.40) L 2.88 M/UL (4.20-5.40) L Hemoglobin 5.6 G/DL (12.0-16.0) *L 8.8 G/DL (12.0-16.0) #L Hematocrit 17.1 % (37.0-47.0) L 25.3 % (37.0-47.0) #L Mean Corpuscular Volume 88 FL (80-99) 88 FL (80-99) Mean Corpuscular Hemoglobin 28.9 PG (27.0-31.0) 30.7 PG (27.0-31.0) Mean Corpuscular Hemoglobin Concent 32.8 G/DL (32.0-36.0) 34.9 G/DL (32.0-36.0) Red Cell Distribution Width 13.8 % (11.6-14.8) 13.2 % (11.6-14.8) Platelet Count 165 K/UL (150-450) 134 K/UL (150-450) L Mean Platelet Volume 4.8 FL (6.5-10.1) L 5.7 FL (6.5-10.1) L Neutrophils (%) (Auto) % (45.0-75.0) 87.6 % (45.0-75.0) H Lymphocytes (%) (Auto) % (20.0-45.0) 8.3 % (20.0-45.0) L Monocytes (%) (Auto) % (1.0-10.0) 3.5 % (1.0-10.0) Eosinophils (%) (Auto) % (0.0-3.0) 0.0 % (0.0-3.0) Basophils (%) (Auto) % (0.0-2.0) 0.5 % (0.0-2.0) Differential Total Cells Counted 100 Neutrophils % (Manual) 81 % (45-75) H Lymphocytes % (Manual) 17 % (20-45) L Monocytes % (Manual) 0 % (1-10) L Eosinophils % (Manual) 0 % (0-3) Basophils % (Manual) 0 % (0-2) Band Neutrophils 2 % (0-8) Platelet Estimate Adequate Platelet Morphology Normal Hypochromasia 3+ Anisocytosis 1+ Prothrombin Time 16.3 SEC (9.30-11.50) H Prothromb Time International Ratio 1.5 (0.9-1.1) H Activated Partial Thromboplast Time 31 SEC (23-33) Sodium Level 136 MMOL/L (136-145) Potassium Level 4.6 MMOL/L (3.5-5.1) Chloride Level 103 MMOL/L (98-107) Carbon Dioxide Level 10 MMOL/L (21-32) L Anion Gap 23 mmol/L (5-15) H Blood Urea Nitrogen 265 mg/dL (7-18) H Creatinine 4.7 MG/DL (0.55-1.30) H Estimat Glomerular Filtration Rate 9.9 mL/min (>60) Glucose Level 66 MG/DL (74-106) L Calcium Level 7.0 MG/DL (8.5-10.1) L Phosphorus Level 8.1 MG/DL (2.5-4.9) H Magnesium Level 2.9 MG/DL (1.8-2.4) H Total Bilirubin 0.4 MG/DL (0.2-1.0) Aspartate Amino Transf (AST/SGOT) 31 U/L (15-37) Alanine Aminotransferase (ALT/SGPT) 19 U/L (12-78) Alkaline Phosphatase 90 U/L (46-116) C-Reactive Protein, Quantitative 8.9 mg/dL (0.00-0.90) H Pro-B-Type Natriuretic Peptide > 02896 pg/mL (0-125) H Total Protein 5.4 G/DL (6.4-8.2) L Albumin 2.1 G/DL (3.4-5.0) L Globulin 3.3 g/dL Albumin/Globulin Ratio 0.6 (1.0-2.7) L Plan Problems: (1) Pancreatitis Assessment & Plan: (1) Pancreatitis Assessment & Plan: 49-year-old female well-known to me presents with pancreatitis lipase elevated greater than 2000 history of this in the past. Tolerating tube feeds. Okay for diet. Continue to trend labs. Abdominal examination otherwise benign. Will obtain imaging as necessary. Currently leukocytosis significant anemia. Heme input appreciated. Thank you will follow with recommendations Assessment & Plan: Leukocytosis anemia abnormal labs elevated LFTs elevated lipase acute pancreatitis along with potential pneumonia UTI Covid negative C. difficile negative. Continue antibiotics. Trend labs. DAILY ESTIMATED NEEDS: Needs based on Critical care, wound, renal dysfunction 59.5 kg 27-22 kcals/kg 3159-0905 total kcals W/ HD (1.5-2.0) g protein/kg 89-119 g total protein Fluid per MD NUTRITION DIAGNOSIS: * Swallowing difficulty R/T dysphagia, respiratory status as evidenced by vent dep via trach, GT Dep. * Increase kcal and pro needs r/t wound healing, renal dysfunction as evidenced by h/o stage 4 sacral wound, and HD. CURRENT TF: Nepro @ 45ml/hr x 24 hrs ENTERAL NUTRITION RECOMMENDATIONS: Nepro @ 45ml/hr x 24 hrs + Prosource 1pkt QD to provide 1080ml, 1944 kcal, 87g + 11g pro, 785ml free H2O * Advance as tolerated to goal. * Add Prosource 1pkt QD to better meet increased protein needs (additional 11g prot) * Water flush per MD/ HOB over 30 degrees ADDITIONAL RECOMMENDATIONS: * Maintain calibrated bed scale * Monitor for HD continuity * F/up w/ WC eval-> add FRANKLIN in 4oz H2O BID via GT * On lactulose, monitor for BM * Monitor BG (hypoglycemic this morning), rec bed side BG checks . Assessment & Plan: Pt presented on admission with Full Thickness Sacral Pressure Injury (L)11cm x (W)13.5cm x (D)1.6cm, Undermining clockwise 7-3 by 3cm @7o'clock. Base of wound is 90% necrotic,10% mixed pink and slough.Epibole and maceration noted along borders. Periwound ,along borders is indurated with darker skin tone . No elevation in skin temp ,or erythema noted. Wound is malodorous. Small amt brown exudate noted. MASD noted to perineum, Bilat ischial tuberosities and medial aspects of both upper thighs. Affected areas are erythematous and denuded. R Heel is boggy with non-blanchable erythema. L Heel is boggy with non-blanchable erythema. Tx.Plan:Cleanse Sacral Wound with Dakin's 0.125% Tawanna. Loosely Pack Wound with Dakin's moistened Kerlix. Apply Moisture Barrier Paste periwound. Cover with Optifoam drsg Daily and prn. Apply Moisture Barrier Paste to Perineum and Medial aspects of both upper thighs with each Incontinence care. Apply Cavilon Skin Barrier to both heels. Cover each Heel with Optifoam drsg. Change every 7 days and prn. Reposition at least every 2hours or as tolerated. Off-load heels with Pillow. APM/JENNIFER Mattress overlay (2) Elevated troponin (3) Anemia (4) Renal failure (5) ARF (acute renal failure) (6) Pacemaker (7) Sepsis (8) Hyponatremia (9) Chronic respiratory failure (10) Dehydration (11) Hypokalemia (12) Acidosis (13) Ascites (14) Bacteremia (15) Depression (16) Hypernatremia (17) Hyponatremia (18) Pleural effusion (19) Proteinuria (20) Respiratory failure (21) Schizophrenia (22) Electrolyte imbalance (23) Hypoxia (24) UTI (urinary tract infection) (25) Pneumonia (26) ACS (acute coronary syndrome) (27) NSTEMI (non-ST elevated myocardial infarction) (28) Aortic dissection, thoracic (29) Tracheostomy in place (30) Respiratory failure, acute and chronic (31) JAVIER (acute kidney injury) (32) JAVIER (acute kidney injury) (33) Abrasion of lip, initial encounter (34) COPD with exacerbation (35) Elevated alkaline phosphatase level (36) Renal failure (ARF), acute on chronic (37) Acute encephalopathy (38) HCAP (healthcare-associated pneumonia) (39) Elevated lipase (40) Sacral decubitus ulcer, stage IV (41) GT CLOGGED (42) Ventilator dependence (43) Severe anemia (44) Feeding by G-tube Lane Saavedra Mar 05, 2020 18:03
[2020-03-05 18:27] LABS: HEMATOCRIT 22.5 % (37.0-47.0); HEMOGLOBIN 7.8 G/DL (12.0-16.0); MEAN CORPUSCULAR VOLUME 85 FL (80-99); PLATELET COUNT 133 K/UL (150-450); RED BLOOD COUNT 2.65 M/UL (4.20-5.40); RED CELL DISTRIBUTION WIDTH 13.2 % (11.6-14.8)
[2020-03-05 18:46] LABS: WHITE BLOOD COUNT 31.6 K/UL (4.8-10.8)
--- NOTE | 2020-03-05 18:55 | NUR ---
NURSE HAND-OFF REPORT: Important Events on Shift:Black tarry stool with fresh blood Patient Status: Full code Diet: NPO Pending Orders: N Pending Results/Labs:N Pending MD notification:N Latest Vital Signs: Temperature 96.4 , Pulse 58 , B/P 103 /42 , Respiratory Rate 20 , O2 SAT 100 , Mechanical Ventilator, O2 Flow Rate . Vital Sign Comment: stable EKG Rhythm: Sinus Bradycardia Rhythm change?: N MD Notified?: - MD Response: Latest Chavarria Fall Score: 35 Fall Risk: Medium Risk Safety Measures: Call light Within Reach, Bed Alarm Zone 1, Side Rails Side Rails x2, Bed position Low and Locked. Fall Precautions: Yellow Socks Report given to ERASMO Forte.
--- NOTE | 2020-03-05 19:10 | NUR ---
NURSE NOTES: Received report from ERASMO Mcgovern. Pt is lying in bed in semi- crisostomo's position. Pt is alert to name and stimulated by voice. Pt has trach to vent with settings as ordered fio2- 40% tolerating well, o2 sat- 100%. Pt has no signs of pain, pt is sleeping in bed in comfortable position. Pt has raymond, anuric. Dialysis done today per Dialysis nurses no output noted. Right hand g22 intact and patent and LFA g22 intact and paent. Right upper chest with permacath no bleeding noted, dressing applied and changed today. Noted residual with red-brown per AM shift. No residual noted right now. Hgb goal is >7. Right now 7.8 for hgb. No blood thinner noted. Bed in lowest position, call light within reach. Continue to plan of care.
[2020-03-05 20:00] VITALS: BP 91/51
[2020-03-05] MEDS: Dyna-Hex 2% Top Sol 2oz TOPIC SCH (20:14)
[2020-03-05] MEDS ORDERED: Tubing IV Secondary IV ONE (20:34)
[2020-03-05] MEDS ORDERED: NS 500ML ONE (20:34)
[2020-03-05] MEDS ORDERED: NS 275ml ONE ×2 (20:34→20:45)
[2020-03-05] MEDS ORDERED: Tubing Blood Filter IV ONE ×2 (20:34→20:45)
[2020-03-05] MEDS ORDERED: Sterile Water Irrig 1000ml IRRIG ONE (20:46)
[2020-03-05] MEDS: D5NS 1,000 ML IV SCH (21:42)
--- NOTE | 2020-03-05 21:42 | NUR ---
NURSE NOTES: Informed Dr. Dong that feeding is held due to residual with reddish to brownish discoloration, started d5ns at 100ml/hr. Informed Pt has BP low 90's, made him aware that pt has SB to 40's and low systolic BP. NNO orders at this time. Made him aware WBC- is trending up, Informed ABG was las done 03/02 and pt is acidotic, ordered repeat ABG but is improving but still acidotic, awaiting for response.
--- NOTE | 2020-03-05 21:45 | General Progress Note ---
Subjective Constitutional: Reports: no symptoms HEENT: Reports: no symptoms Cardiovascular: Reports: no symptoms Respiratory: Reports: no symptoms Gastrointestinal/Abdominal: Reports: no symptoms, black stools Genitourinary: Reports: no symptoms Neurologic/Psychiatric: Reports: no symptoms Endocrine: Reports: no symptoms Hematologic/Lymphatic: Reports: no symptoms Allergies: Coded Allergies: No Known Allergies (Unverified , 10/10/17) Objective Last 24 Hour Vital Signs Date Time Temp Pulse Resp B/P (MAP) Pulse Ox O2 Delivery O2 Flow Rate FiO2 03/05/20 19:05 54 21 40 03/05/20 16:00 40 03/05/20 16:00 58 03/05/20 16:00 Mechanical Ventilator 03/05/20 16:00 40 03/05/20 16:00 96.4 58 20 103/42 (62) 100 03/05/20 14:50 69 30 40 03/05/20 12:00 Mechanical Ventilator 03/05/20 12:00 62 03/05/20 12:00 40 03/05/20 12:00 96.5 70 20 122/74 (90) 100 03/05/20 11:21 66 33 40 03/05/20 08:00 Mechanical Ventilator 03/05/20 08:00 96.3 57 22 94/47 (63) 100 03/05/20 08:00 40 03/05/20 07:43 54 03/05/20 07:16 59 23 40 03/05/20 04:00 97.9 56 20 103/58 (73) 100 03/05/20 04:00 40 03/05/20 04:00 Mechanical Ventilator 03/05/20 04:00 92 03/05/20 03:05 66 22 40 03/05/20 00:00 64 03/05/20 00:00 Mechanical Ventilator 03/05/20 00:00 97.9 65 21 102/47 (65) 99 03/04/20 23:15 66 27 40 Intake and Output 03/04/20 03/05/20 19:00 07:00 Intake Total 115 ml Output Total 50 ml 150 ml Balance 65 ml -150 ml Intake Free Water 60 ml IV Total 55 ml Output Urine Total 50 ml 150 ml # Bowel Movements 2 2 Laboratory Tests 03/05/20 07:05: White Blood Count 29.0*H, Red Blood Count 2.88L, Hemoglobin 8.8#L, Hematocrit 25.3#L, Mean Corpuscular Volume 88, Mean Corpuscular Hemoglobin 30.7, Mean Corpuscular Hemoglobin Concent 34.9, Red Cell Distribution Width 13.2, Platelet Count 134L, Mean Platelet Volume 5.7L, Neutrophils (%) (Auto) 87.6H, Lymphocytes (%) (Auto) 8.3L, Monocytes (%) (Auto) 3.5, Eosinophils (%) (Auto) 0.0, Basophils (%) (Auto) 0.5, Sodium Level 136, Potassium Level 4.6, Chloride Level 103, Carbon Dioxide Level 10L, Anion Gap 23H, Blood Urea Nitrogen 265H, Creatinine 4.7H, Estimat Glomerular Filtration Rate 9.9, Glucose Level 66L, Calcium Level 7.0L, Phosphorus Level 8.1H, Magnesium Level 2.9H, Total Bilirubin 0.4, Aspartate Amino Transf (AST/SGOT) 31, Alanine Aminotransferase (ALT/SGPT) 19, Alkaline Phosphatase 90, C-Reactive Protein, Quantitative 8.9H, Pro-B-Type Natriuretic Peptide > 07043K, Total Protein 5.4L, Albumin 2.1L, Globulin 3.3, Albumin/Globulin Ratio 0.6L 03/05/20 18:20: White Blood Count 31.6*H, Red Blood Count 2.65L, Hemoglobin 7.8L, Hematocrit 22.5L, Mean Corpuscular Volume 85, Mean Corpuscular Hemoglobin 29.2, Mean Corpuscular Hemoglobin Concent 34.5, Red Cell Distribution Width 13.2, Platelet Count 133L, Mean Platelet Volume 5.7L, Neutrophils (%) (Auto) , Lymphocytes (%) (Auto) , Monocytes (%) (Auto) , Eosinophils (%) (Auto) , Basophils (%) (Auto) , Differential Total Cells Counted 100, Neutrophils % (Manual) 84H, Lymphocytes % (Manual) 5L, Monocytes % (Manual) 6, Eosinophils % (Manual) 0, Basophils % (Manual) 0, Band Neutrophils 5, Nucleated Red Blood Cells 1, Platelet Estimate DecreasedL, Platelet Morphology Normal, Polychromasia 2+, Poikilocytosis 1+, Anisocytosis 1+, Geovanna Cells 1+ 03/05/20 20:00: Random Vancomycin Level 19.6 Height (Feet): 5 Height (Inches): 3.00 Weight (Pounds): 128 General Appearance: WD/WN, alert EENT: normal ENT inspection Neck: supple Cardiovascular: normal rate, no gallop/murmur, no JVD, bradycardia Respiratory/Chest: lungs clear, no respiratory distress, no accessory muscle use, decreased breath sounds Abdomen: normal bowel sounds, non tender, soft, no mass, other - Gastric residual was more than 200 cc Extremities: non-tender Neurologic: alert, responsive Assessment/Plan Status Narrative Patient is awake alert febrile borderline hypotensive with normal eye contact and normal attention span she required last night and repeat transfusion of 2 units of packed RBC after her H&H dropped again to hemoglobin of 5 and hematocrit of 18 her feeding was resumed today by the 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 goods 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 but feeding was DC'd when the gastric residuals which more than 200 cc at the present time she is a borderline hypotensive have episode of bradycardia this morning not repeated self blood cultures and urine cultures from March 02 grew Staphylococcus epidermidis and Staphylococcus hematogenous urine grew Serratia migrans which was sensitive to meropenem and the gram-positive cocci was sensitive to vancomycin last several days recommendation of vancomycin meropenem did not generate significant reduction in WBCs chest wall ultrasound revealed the patient have only minimal pleural effusion indicating the patient pulmonary condition is better than the x-ray led to believe the complete recovery of her mental status is another factor that indicates that patient is responding to the current therapy will continue to hold feeding Protonix IV will be given order to infuse albumin if blood pressure drop below 90 was giving again her IV will be D5W normal saline patient does not appear to be in pain or under any specific distress buys off her serious and severe condition repeat laboratory tests will be done in a.m. as a Lucas Paul MD, MD Mar 05, 2020 21:45
[2020-03-05] MEDS ORDERED: Vancomycin 500mg/D5W 110ml IVPB SCH ×2 (23:00)
--- NOTE | 2020-03-05 23:38 | NUR ---
NURSE NOTES: Pt is awake, VS WNL, no pain noted. No hypotension noted. temp 96.4, warm blanket applied. O2 sat- 100%. No signs of respiratory distress. oral swab done. Will continue to monitor pt.
[2020-03-06] VITALS: BP 120/70
--- NOTE | 2020-03-06 02:42 | NUR ---
NURSE NOTES: Cleaned pt, sponge bath given. Not in distress. Noted bright red bleeding in the anal area, and dark tarry stool in large amount, had this episode this morning, Dr. Dong aware and Dr. Mccauley aware. No tachycardia noted. BP is 128/70. Held feeding. Continue to monitor pt for hypotension.
[2020-03-06 04:00] VITALS: BP 102/36
--- NOTE | 2020-03-06 04:27 | NUR ---
NURSE NOTES: No hypotension noted. No pain noted. No distress noted. bed in lowest position, call light within reach. Continue to plan of care.
[2020-03-06] MEDS: Metoclopramide 10mg/2ml Inj IVP SCH ×3 (05:33→22:32)
[2020-03-06 05:38] LABS: HEMATOCRIT 23.9 % (37.0-47.0); HEMOGLOBIN 8.3 G/DL (12.0-16.0); MEAN CORPUSCULAR VOLUME 87 FL (80-99); PLATELET COUNT 122 K/UL (150-450); RED BLOOD COUNT 2.75 M/UL (4.20-5.40); RED CELL DISTRIBUTION WIDTH 13.1 % (11.6-14.8)
[2020-03-06 06:03] LABS: WHITE BLOOD COUNT 34.7 K/UL (4.8-10.8)
[2020-03-06 06:08] LABS: ALANINE AMINOTRANSFERASE 12 U/L (12-78); ALBUMIN 2.1 G/DL (3.4-5.0); ALBUMIN/GLOBULIN RATIO 0.7 (1.0-2.7); ALKALINE PHOSPHATASE 96 U/L (46-116); ANION GAP 20 mmol/L (5-15); ASPARTATE AMINO TRANSFERASE 33 U/L (15-37); BILIRUBIN,TOTAL 0.3 MG/DL (0.2-1.0); BLOOD UREA NITROGEN 171 mg/dL (7-18); CALCIUM 7.3 MG/DL (8.5-10.1); CARBON DIOXIDE 15 MMOL/L (21-32); CHLORIDE 107 MMOL/L (98-107); CREATINE KINASE 186 U/L (26-308); CREATININE 3.5 MG/DL (0.55-1.30); POTASSIUM 3.8 MMOL/L (3.5-5.1); SODIUM 142 MMOL/L (136-145)
--- NOTE | 2020-03-06 06:19 | NUR ---
NURSE NOTES: LVM to Dr. Willams/ Dr. Dunlap for episode of SB to low 40's. Pt already on IVF. Will Continue to monitor pt.
[2020-03-06] MEDS: D5NS 1,000 ML IV SCH ×2 (06:31→17:44)
--- NOTE | 2020-03-06 06:42 | NUR ---
NURSE NOTES: Seen by Dr. Muhammad, informed about the episode of rectal bleeding and dark tarry stool, informed that HR can go down to low 40's. Per . Refer to Екатерина.
--- NOTE | 2020-03-06 07:00 | NUR ---
NURSE HAND-OFF REPORT: Important Events on Shift: davis- 40's, Dr. worthington in the case, Dr. Dong aware, low diastolic BP, low BP-given IVF at 100ml/hr, noted 1x large bm in reddish in color. Occult blood positive. WBC is trending up Dr. Dong aware. Patient Status: Criticial and guarded Diet: NPO Pending Orders: None Pending Results/Labs none Pending MD notification: None Latest Vital Signs: Temperature 98.7 , Pulse 56 , B/P 102 /36 , Respiratory Rate 17 , O2 SAT 97 , Mechanical Ventilator, O2 Flow Rate . Vital Sign Comment: [] EKG Rhythm: Sinus Bradycardia Rhythm change?: N MD Notified?: - MD Response: Latest Chavarria Fall Score: 45 Fall Risk: High Risk Safety Measures: Call light Within Reach, Bed Alarm Zone 1, Side Rails Side Rails x2, Bed position Low and Locked. Fall Precautions: Yellow Socks Report given to [ERASMO Lu].
--- NOTE | 2020-03-06 07:20 | Hematology/Onc Progress Note ---
Assessment/Plan Assessment/Plan Imaging: noted Assessment and Recs # Leukocytosis, now with likely bacteremia, as per ID care --> Cxr: : Large left abiola consolidation/effusion --> wbc 30-->40-->27->30->29-->35 --> ABX angelo/vanc --> smear reviewed --> ID recs are noted # Elevated tumor markers, cea and ca 19.9 --> reviewed prior 01/27/20 cat scan a/p --> no masses noted, hold off further extensive w/u # Anemia of chronic disease due to underlying chronic medical issues, multi factorial --> Anemia workup has been reviewed, cw acd --> No evidence of hemolysis is noted, peripheral smear has been reviewed. --> Hgb goal >7. Transfuse prn. --> Epogen required in prior --> Medications have been reviewed --> low threshold for gi evaluation in case has occult + --> hgb 1.9-->5-->7.1-->8.8 --> 1 unit prbc1, 2 units 01/15, 03/02 --> gi eval as needed # Coagulopathy with inr 1.5 --> consider vit k/ffp as needed preprocedure --> labs noted # Thrombocytopenia likely reactive --> plt 200-->129 --> r/o dic # JAVIER initially >2 --> on ivfs --> per renal # Elevated d-dimer, likely infection related --> venous duplex prior neg --> in prior neg # Dysphagia s/p peg --> as per gi # Thoracic aortic dissection --> s/p repair early 2017 # Chronic Resp failure -> s/p trach/vent # Psychiatric history on ativan/haldol # [place] resident # Dvt ppx --> scds The timing of this note does not necessarily reflect the time of the patient was seen. Greatly appreciate consultation. Subjective Neurologic/Psychiatric: Denies: no symptoms, anxiety, depressed, emotional problems, headache, numbness, paresthesia, pre-existing deficit, seizure, tingling, tremors, weakness, other Endocrine: Denies: no symptoms, excessive sweating, flushing, intolerance to cold, intolerance to heat, increased hunger, increased thirst, increased urine, unexplained weight gain, unexplained weight loss, other Allergies: Coded Allergies: No Known Allergies (Unverified , 10/10/17) All Systems: reviewed and negative except above Subjective 03/04 for 1 unit transfusion this am as hgb remains low, wbc better 03/05 egd was done did show large nonbleeding gastric ulcer, high tumor markers 03/06 nv, with davis overnight, bp remains stable, with occult + stool, dw Rn Objective Objective Current Medications Medications (Trade) Dose Ordered Sig/Penny Route PRN Reason Start Time Stop Time Status Last Admin Dose Admin Acetaminophen (Tylenol) 650 mg Q6H PRN GT Mild Pain (Pain Scale 1-3) 03/02/20 22:30 04/01/20 22:29 Acetaminophen (Tylenol) 650 mg Q6H PRN GT Temp >100.5 03/03/20 03:00 04/01/20 22:29 Albumin Human 50 ml @ 50 mls/hr NEEDED PRN IV For hypotension 03/05/20 22:30 Chlorhexidine Gluconate (Ling-Hex 2%) 1 applic DAILY@2000 TOPIC 03/03/20 20:00 06/01/20 19:59 03/05/20 20:14 Dextrose/Sodium Chloride 1,000 ml @ 100 mls/hr Q10H IV 03/05/20 21:30 04/04/20 21:29 03/06/20 06:31 Hydralazine HCl (Apresoline) 25 mg Q6H PRN GT For High Blood Pressure 03/02/20 22:00 05/31/20 21:59 Meropenem 500 mg/ Sodium Chloride 55 ml @ 110 mls/hr Q12H IVPB 03/03/20 10:00 03/08/20 09:59 03/05/20 22:15 Metoclopramide HCl (Reglan) 5 mg Q8HR IVP 03/04/20 11:45 04/03/20 11:44 03/06/20 05:33 Midodrine (Pro-Amatine) 10 mg THREE TIMES A DAY GT 03/04/20 13:00 06/01/20 12:59 03/05/20 17:18 Pantoprazole (Protonix) 40 mg EVERY 12 HOURS IVP 03/04/20 21:00 04/02/20 20:59 03/05/20 20:14 Polyethylene Glycol (Miralax) 17 gm BEDTIME PRN GT Constipation 03/02/20 22:00 04/01/20 21:59 Sodium Hypochlorite (Dakin's Quarter Strength) 1 applic DAILY TOPIC 03/04/20 09:00 04/03/20 08:59 03/05/20 09:13 Vancomycin HCl (Vanco pharmacy to dose) 1 ea DAILY PRN MISC Per rx protocol 03/03/20 09:15 04/02/20 09:14 Last 24 Hour Vital Signs Date Time Temp Pulse Resp B/P (MAP) Pulse Ox O2 Delivery O2 Flow Rate FiO2 03/06/20 04:00 Mechanical Ventilator 03/06/20 04:00 40 03/06/20 04:00 98.7 56 17 102/36 (58) 97 03/06/20 03:44 42 03/06/20 00:00 56 03/06/20 00:00 96.5 55 19 120/70 (87) 100 03/06/20 00:00 Mechanical Ventilator 03/05/20 23:30 70 21 40 03/05/20 20:00 Mechanical Ventilator 03/05/20 20:00 40 03/05/20 20:00 96.5 51 20 91/51 (64) 100 03/05/20 20:00 60 03/05/20 19:05 54 21 40 03/05/20 16:00 40 03/05/20 16:00 58 03/05/20 16:00 Mechanical Ventilator 03/05/20 16:00 40 03/05/20 16:00 96.4 58 20 103/42 (62) 100 03/05/20 14:50 69 30 40 03/05/20 12:00 Mechanical Ventilator 03/05/20 12:00 62 03/05/20 12:00 40 03/05/20 12:00 96.5 70 20 122/74 (90) 100 03/05/20 11:21 66 33 40 03/05/20 08:00 Mechanical Ventilator 03/05/20 08:00 96.3 57 22 94/47 (63) 100 03/05/20 08:00 40 03/05/20 07:43 54 03/05/20 07:16 59 23 40 03/05/20 04:00 97.9 56 20 103/58 (73) 100 03/05/20 04:00 40 03/05/20 04:00 Mechanical Ventilator 03/05/20 04:00 92 03/05/20 03:05 66 22 40 03/05/20 00:00 64 03/05/20 00:00 Mechanical Ventilator 03/05/20 00:00 97.9 65 21 102/47 (65) 99 03/04/20 23:15 66 27 40 03/04/20 20:16 71 03/04/20 20:00 97.9 72 29 108/50 (69) 96 03/04/20 20:00 40 03/04/20 20:00 Mechanical Ventilator 03/04/20 19:20 73 29 40 03/04/20 16:00 40 03/04/20 16:00 Mechanical Ventilator 03/04/20 16:00 97.7 78 24 101/39 (59) 100 03/04/20 16:00 74 03/04/20 15:10 75 28 40 03/04/20 12:57 77 14 98 03/04/20 12:00 97.7 74 24 97/34 (55) 100 03/04/20 12:00 Mechanical Ventilator 03/04/20 12:00 40 03/04/20 11:51 77 14 98 03/04/20 11:38 77 03/04/20 11:30 88 25 40 03/04/20 08:00 40 03/04/20 08:00 98.2 85 26 104/51 (68) 96 03/04/20 08:00 Mechanical Ventilator 03/04/20 07:44 94 Intake and Output 03/05/20 03/06/20 19:00 07:00 Intake Total 165 ml 910 ml Output Total 100 ml 15 ml Balance 65 ml 895 ml Intake Free Water 60 ml IV Total 55 ml 910 ml Tube Feeding 50 ml Output Urine Total 100 ml 15 ml # Bowel Movements 5 1 Labs Test 03/03/20 17:50 03/03/20 18:45 03/04/20 05:00 03/04/20 19:45 Stool Occult Blood Positive (NEGATIVE) White Blood Count 32.6 K/UL (4.8-10.8) 30.1 K/UL (4.8-10.8) 30.1 K/UL (4.8-10.8) Red Blood Count 1.86 M/UL (4.20-5.40) 2.43 M/UL (4.20-5.40) 1.94 M/UL (4.20-5.40) Hemoglobin 5.2 G/DL (12.0-16.0) 7.1 G/DL (12.0-16.0) 5.6 G/DL (12.0-16.0) Hematocrit 15.8 % (37.0-47.0) 21.1 % (37.0-47.0) 17.1 % (37.0-47.0) Mean Corpuscular Volume 85 FL (80-99) 87 FL (80-99) 88 FL (80-99) Mean Corpuscular Hemoglobin 27.9 PG (27.0-31.0) 29.2 PG (27.0-31.0) 28.9 PG (27.0-31.0) Mean Corpuscular Hemoglobin Concent 32.8 G/DL (32.0-36.0) 33.7 G/DL (32.0-36.0) 32.8 G/DL (32.0-36.0) Red Cell Distribution Width 14.9 % (11.6-14.8) 14.2 % (11.6-14.8) 13.8 % (11.6-14.8) Platelet Count 244 K/UL (150-450) 245 K/UL (150-450) 165 K/UL (150-450) Mean Platelet Volume 4.9 FL (6.5-10.1) 5.5 FL (6.5-10.1) 4.8 FL (6.5-10.1) Neutrophils (%) (Auto) % (45.0-75.0) % (45.0-75.0) % (45.0-75.0) Lymphocytes (%) (Auto) % (20.0-45.0) % (20.0-45.0) % (20.0-45.0) Monocytes (%) (Auto) % (1.0-10.0) % (1.0-10.0) % (1.0-10.0) Eosinophils (%) (Auto) % (0.0-3.0) % (0.0-3.0) % (0.0-3.0) Basophils (%) (Auto) % (0.0-2.0) % (0.0-2.0) % (0.0-2.0) Differential Total Cells Counted 100 100 100 Neutrophils % (Manual) 73 % (45-75) 89 % (45-75) 81 % (45-75) Lymphocytes % (Manual) 6 % (20-45) 5 % (20-45) 17 % (20-45) Monocytes % (Manual) 2 % (1-10) 4 % (1-10) 0 % (1-10) Eosinophils % (Manual) 0 % (0-3) 0 % (0-3) 0 % (0-3) Basophils % (Manual) 0 % (0-2) 0 % (0-2) 0 % (0-2) Band Neutrophils 19 % (0-8) 2 % (0-8) 2 % (0-8) Platelet Estimate Adequate Adequate Adequate Platelet Morphology Normal Normal Normal Polychromasia 1+ 1+ Poikilocytosis 1+ Anisocytosis 2+ 1+ Geovanna Cells 2+ Sodium Level 129 MMOL/L (136-145) 132 MMOL/L (136-145) Potassium Level 4.0 MMOL/L (3.5-5.1) 4.0 MMOL/L (3.5-5.1) Chloride Level 95 MMOL/L (98-107) 97 MMOL/L (98-107) Carbon Dioxide Level 14 MMOL/L (21-32) 12 MMOL/L (21-32) Anion Gap 20 mmol/L (5-15) 23 mmol/L (5-15) Blood Urea Nitrogen 246 mg/dL (7-18) 244 mg/dL (7-18) Creatinine 4.6 MG/DL (0.55-1.30) 4.6 MG/DL (0.55-1.30) Estimat Glomerular Filtration Rate 10.2 mL/min (>60) 10.2 mL/min (>60) Glucose Level 89 MG/DL (74-106) 71 MG/DL (74-106) Calcium Level 8.2 MG/DL (8.5-10.1) 7.6 MG/DL (8.5-10.1) Red Blood Cell Morphology Normal Hypochromasia 1+ 3+ Erythrocyte Sedimentation Rate 55 MM/HR (0-20) Prothrombin Time 15.8 SEC (9.30-11.50) 16.3 SEC (9.30-11.50) Prothromb Time International Ratio 1.5 (0.9-1.1) 1.5 (0.9-1.1) Activated Partial Thromboplast Time 31 SEC (23-33) 31 SEC (23-33) Lactic Acid Level 0.40 mmol/L (0.4-2.0) Uric Acid 10.0 MG/DL (2.6-7.2) Phosphorus Level 5.1 MG/DL (2.5-4.9) Magnesium Level 2.8 MG/DL (1.8-2.4) Total Bilirubin 0.4 MG/DL (0.2-1.0) Gamma Glutamyl Transpeptidase 13 U/L (5-85) Aspartate Amino Transf (AST/SGOT) 40 U/L (15-37) Alanine Aminotransferase (ALT/SGPT) 20 U/L (12-78) Alkaline Phosphatase 116 U/L (46-116) Lactate Dehydrogenase 209 U/L (81-234) C-Reactive Protein, Quantitative 18.6 mg/dL (0.00-0.90) Pro-B-Type Natriuretic Peptide > 15557 pg/mL (0-125) Total Protein 5.7 G/DL (6.4-8.2) Albumin 1.9 G/DL (3.4-5.0) Globulin 3.8 g/dL Albumin/Globulin Ratio 0.5 (1.0-2.7) Amylase Level 141 U/L (25-115) Lipase 660 U/L (73-393) Vitamin B12 Level > 2000 PG/ML (193-986) Folate 37.2 NG/ML (8.6-58.9) Vancomycin Level Trough 11.8 ug/mL (5.0-12.0) Test 03/05/20 07:05 03/05/20 18:20 03/05/20 20:00 03/05/20 21:36 White Blood Count 29.0 K/UL (4.8-10.8) 31.6 K/UL (4.8-10.8) Red Blood Count 2.88 M/UL (4.20-5.40) 2.65 M/UL (4.20-5.40) Hemoglobin 8.8 G/DL (12.0-16.0) 7.8 G/DL (12.0-16.0) Hematocrit 25.3 % (37.0-47.0) 22.5 % (37.0-47.0) Mean Corpuscular Volume 88 FL (80-99) 85 FL (80-99) Mean Corpuscular Hemoglobin 30.7 PG (27.0-31.0) 29.2 PG (27.0-31.0) Mean Corpuscular Hemoglobin Concent 34.9 G/DL (32.0-36.0) 34.5 G/DL (32.0-36.0) Red Cell Distribution Width 13.2 % (11.6-14.8) 13.2 % (11.6-14.8) Platelet Count 134 K/UL (150-450) 133 K/UL (150-450) Mean Platelet Volume 5.7 FL (6.5-10.1) 5.7 FL (6.5-10.1) Neutrophils (%) (Auto) 87.6 % (45.0-75.0) % (45.0-75.0) Lymphocytes (%) (Auto) 8.3 % (20.0-45.0) % (20.0-45.0) Monocytes (%) (Auto) 3.5 % (1.0-10.0) % (1.0-10.0) Eosinophils (%) (Auto) 0.0 % (0.0-3.0) % (0.0-3.0) Basophils (%) (Auto) 0.5 % (0.0-2.0) % (0.0-2.0) Sodium Level 136 MMOL/L (136-145) Potassium Level 4.6 MMOL/L (3.5-5.1) Chloride Level 103 MMOL/L (98-107) Carbon Dioxide Level 10 MMOL/L (21-32) Anion Gap 23 mmol/L (5-15) Blood Urea Nitrogen 265 mg/dL (7-18) Creatinine 4.7 MG/DL (0.55-1.30) Estimat Glomerular Filtration Rate 9.9 mL/min (>60) Glucose Level 66 MG/DL (74-106) Calcium Level 7.0 MG/DL (8.5-10.1) Phosphorus Level 8.1 MG/DL (2.5-4.9) Magnesium Level 2.9 MG/DL (1.8-2.4) Total Bilirubin 0.4 MG/DL (0.2-1.0) Aspartate Amino Transf (AST/SGOT) 31 U/L (15-37) Alanine Aminotransferase (ALT/SGPT) 19 U/L (12-78) Alkaline Phosphatase 90 U/L (46-116) C-Reactive Protein, Quantitative 8.9 mg/dL (0.00-0.90) Pro-B-Type Natriuretic Peptide > 29661 pg/mL (0-125) Total Protein 5.4 G/DL (6.4-8.2) Albumin 2.1 G/DL (3.4-5.0) Globulin 3.3 g/dL Albumin/Globulin Ratio 0.6 (1.0-2.7) Differential Total Cells Counted 100 Neutrophils % (Manual) 84 % (45-75) Lymphocytes % (Manual) 5 % (20-45) Monocytes % (Manual) 6 % (1-10) Eosinophils % (Manual) 0 % (0-3) Basophils % (Manual) 0 % (0-2) Band Neutrophils 5 % (0-8) Nucleated Red Blood Cells 1 /100 WBC Platelet Estimate Decreased Platelet Morphology Normal Polychromasia 2+ Poikilocytosis 1+ Anisocytosis 1+ Geovanna Cells 1+ Random Vancomycin Level 19.6 ug/mL Arterial Blood pH 7.389 (7.350-7.450) Arterial Blood Partial Pressure CO2 22.5 mmHg (35.0-45.0) Arterial Blood Partial Pressure O2 114.5 mmHg (75.0-100.0) Arterial Blood HCO3 13.3 mmol/L (22.0-26.0) Arterial Blood Oxygen Saturation 97.4 % (95-100) Arterial Blood Base Excess -10.4 (-2-2) Rojas Test Positive Test 03/06/20 04:30 White Blood Count 34.7 K/UL (4.8-10.8) Red Blood Count 2.75 M/UL (4.20-5.40) Hemoglobin 8.3 G/DL (12.0-16.0) Hematocrit 23.9 % (37.0-47.0) Mean Corpuscular Volume 87 FL (80-99) Mean Corpuscular Hemoglobin 30.3 PG (27.0-31.0) Mean Corpuscular Hemoglobin Concent 34.9 G/DL (32.0-36.0) Red Cell Distribution Width 13.1 % (11.6-14.8) Platelet Count 122 K/UL (150-450) Mean Platelet Volume 6.3 FL (6.5-10.1) Neutrophils (%) (Auto) % (45.0-75.0) Lymphocytes (%) (Auto) % (20.0-45.0) Monocytes (%) (Auto) % (1.0-10.0) Eosinophils (%) (Auto) % (0.0-3.0) Basophils (%) (Auto) % (0.0-2.0) Sodium Level 142 MMOL/L (136-145) Potassium Level 3.8 MMOL/L (3.5-5.1) Chloride Level 107 MMOL/L (98-107) Carbon Dioxide Level 15 MMOL/L (21-32) Anion Gap 20 mmol/L (5-15) Blood Urea Nitrogen 171 mg/dL (7-18) Creatinine 3.5 MG/DL (0.55-1.30) Estimat Glomerular Filtration Rate 14.0 mL/min (>60) Glucose Level 75 MG/DL (74-106) Uric Acid 9.6 MG/DL (2.6-7.2) Calcium Level 7.3 MG/DL (8.5-10.1) Phosphorus Level 7.0 MG/DL (2.5-4.9) Magnesium Level 2.5 MG/DL (1.8-2.4) Total Bilirubin 0.3 MG/DL (0.2-1.0) Aspartate Amino Transf (AST/SGOT) 33 U/L (15-37) Alanine Aminotransferase (ALT/SGPT) 12 U/L (12-78) Alkaline Phosphatase 96 U/L (46-116) Total Creatine Kinase 186 U/L (26-308) C-Reactive Protein, Quantitative 5.8 mg/dL (0.00-0.90) Pro-B-Type Natriuretic Peptide > 49460 pg/mL (0-125) Total Protein 5.0 G/DL (6.4-8.2) Albumin 2.1 G/DL (3.4-5.0) Globulin 2.9 g/dL Albumin/Globulin Ratio 0.7 (1.0-2.7) Height (Feet): 5 Height (Inches): 3.00 Weight (Pounds): 128 Objective Physical Exam: Vitals: reviewed General: NAD HEENT: nc, at Neck: supple ++trach/vent Chest: clear breath sounds bilaterally Cardiovascular: RRR, no s3, s4 Abdomen: soft, nontender, nd +gtube Extremities: no cce, normal range of motion Neuro: alert Evan Muhammad MD Mar 06, 2020 07:20
--- NOTE | 2020-03-06 07:30 | NUR ---
COBY NOTES: Received pt from [facility], pt is sleeping and obtunded, pt has trach to ventilator AC 14 TV 500 PEEP 5 FIO2 40%, Pt is on continues heart monitoring. pt has g tube in place is patent. pt is NPO due to GI bleed per overnight babysitter nurse, no feeding running. pt has Norman cath in place is working, pt has intact iv access LFA 22G is running well and RH 22G SL. All needs attended, bed is locked and is in the lowest position, call light within easy reach. will continue to monitor.
[2020-03-06 07:49] VITALS: BP 104/45
--- NOTE | 2020-03-06 09:05 | NUR ---
RD ASSESSMENT & RECOMMENDATIONS SEE CARE ACTIVITY FOR COMPLETE ASSESSMENT DAILY ESTIMATED NEEDS: Needs based on Critical care, wound, renal dysfunction 59.5 kg 27-22 kcals/kg 9689-3214 total kcals W/ HD (1.5-2.0) g protein/kg 89-119 g total protein Fluid per MD NUTRITION DIAGNOSIS: * Swallowing difficulty R/T dysphagia, respiratory status as evidenced by vent dep via trach, GT Dep. * Increase kcal and pro needs r/t wound healing, renal dysfunction as evidenced by h/o stage 4 sacral wound, and HD. CURRENT TF: Nepro @ 45ml/hr x 24 hrs- NOW HELD FOR GIB ENTERAL NUTRITION RECOMMENDATIONS: Nepro @45ml/hr x 24 hrs + Prosource 1pkt QD to provide 1080ml, 1944 kcal, 87g + 11g pro, 785ml free H2O * Advance as tolerated to goal. * Add Prosource 1pkt QD to better meet increased protein needs (additional 11g prot) * Water flush per MD/ HOB over 30 degrees ADDITIONAL RECOMMENDATIONS: * Maintain calibrated bed scale * Monitor for HD continuity * WC eval-> w/ TF orders add FRANKLIN in 4oz H2O BID via GT Vit C per nephrology, Nephrovite 1 tab daily. * Monitor BG (hypoglycemic BG 66 03/05), rec bed side BG checks -> On D5, rec accuchceks .
[2020-03-06] MEDS: Pantoprazole Inj IVP SCH ×2 (09:08→20:29)
[2020-03-06] MEDS: Midodrine 10mg tab GT SCH ×3 (09:08→17:44)
[2020-03-06] MEDS: Dakin's 0.125% Soln (Quarter Strength) 16oz TOPIC SCH (09:09)
[2020-03-06] MEDS: Meropenem 500 MG in NS 55 ML IVPB SCH (09:10)
[2020-03-06] MEDS ORDERED: Tobramyicin Rx to dose MISC PRN (09:15)
--- NOTE | 2020-03-06 09:17 | Infectious Diseases Prog Note ---
Assessment/Plan 49yo F with: AMS Anemia to 1.9 on admission 03/02 Leukocytosis to 40 GPC bacteremia \UTI Possible pna Hypotension 03/02 BCx 1/2 +Staph epi, 1 +Staph haemolyticus (m/l skin colonizers) UA+, UCx >100k P.stuartii (S-angelo) & CRE P.mirablis (R-polyB/colistin, S- tobramycin) COVID rapid neg, PCR neg CXR: Tracheostomy again demonstrated. Interim placement of a right jugular tunneled dialysis catheter. There is infiltrate and volume loss in the left jenn ng, particularly in the perihilar region, suprahilar region, and base. Consolidation at the lung base is similar. The perihilar and suprahilar region consolidation is new. The right lung pleural space are clear. C.dif neg 03/03 BCx NTD 03/06 BCx ordered AF Sepsis Leukocytosis Hypoxia on vent Pneumonia c/b L pleural effusion (recurrent, prior determined to be transudative) - s/p thora 01/21, 1050cc removed Volume overload, BNP >35,0000, likely 2/2 progressive CKD --> ESRD ?Pancreatitis, Lipase >2000 Acute anemia to 5s CONS bacteremia, ?contaminant Aflutter w/ RVR 01/13 BCx 2/2 +S. epi COVID PCR neg Flu neg CXR: Large left pleural effusion. Bilateral interstitial and airspace infiltrates versus edema MRSA nares neg 01/16 BCx NTD 01/17 BCx / +Staph auricularis (skin colonizer) 01/18 Resp cx +MDR CRE PsA (S-gent, I-colistin, R-polyB) 01/18 C.dif neg 01/18 CXR: Similar opacification of the left hemithorax likely representing combination of pleural effusion with atelectasis versus pneumonia/edema. Decreased but persistent hazy opacity throughout the right lung may represent edema versus infectious/inflammatory process. 01/20 BCx NTD 01/21 L thora 1050 cc removed, cx NTD 01/25 Wound cx from Gtube site +CRE Kleb pna (arnett-R) and MDR PsA (colonizers) 01/26 CT A/P: Limited exam, due to severe diffuse anasarca. Ascites. Bilateral pleural effusions. Basilar pulmonary atelectatic changes and consolidation. Gastrostomy. Atrophic left kidney with a nephroureteral stents again demonstrated. Possible retrococcygeal decubitus changes. Correlate with clinical findings, consider MRI if there is concern for sacral osteomyelitis. Right hip intertrochanteric fracture, also previously demonstrated. Left femoral dialysis catheter. Nonspecific right lobe liver lesion is unchanged, not well-demonstrated. ctasia bordering on aneurysmal dilatation and possible chronic dissection of the distal thoracic aorta, also previously described. JAVIER on CKD On previous admission Sep-Oct 2019 required HD for short period Going to start HD this admission again R/o COVID 01/14 COVID PCR neg 12/29 neg at SN[facility] per report H/o UTI 11/27 u/a wbc 30-40, nit neg, leuk +3; ucx ESBL P. mirablis, ESBL M. morganii 09/15/19 u/a wbc tnct, nit neg, leuk +3; ucx >100k MDR P. stuarti (S Ceftriaxone, Meropenem) 10/07 u/a wbc tnct, nit neg, leuk ; ucx >100k VRE 10/15/19 u/a wbc tnct; ucx >100k ESBL P. stuarti (S ertapenem, aztreonam) H/o transudative pleural effusion 11/28 Sp Thora (w: 169, PMN: 2%, L: 49% , LDH: 57, prot 2.5); cx Neg H/o PNA 10/15/19 Resp cx ESBL P. mirabilis, MDR P.a. (S only to Gent) 09/22 Resp cx + MDR PsA (S-gent; I-colistin; R-levofloxacin, Zosyn, angelo) 09/16/19 Sp cx ESBL P. mirablis H/o PPM site (pocket) infection and pocket abscess 2ry to S. epi-11/2018, sp >6weeks IV vancomycin 11/27 SP ABBIE: no evidence for vegetation on any of the valves 11/26/18 SP PPM removal: OR findings:The fibrous capsule enclosing the generator was then opened and there was a ivral-re-aquviptj amount of yellowish fluid drainage. The generator was then removed.Atrial and ventricular leads were detached. The necrotic tissue of the pocket was then removed and the pocket was flushed with an antibiotic solution. Capsule, wound tissue and lead tip cx: Neg 2d echo: no vegetation seen US chest: 4.6 x 3.4 x 0.9 cm hypoechoic/anechoic area overlying left chest pacemaker power pack. This could represent either a discrete fluid collection or a focal area of very edematous tissue. Infected fluid pocket also possible. 11/18 Bcx 3/4 S. epi; 11/20 Bcx neg; 11/24 Bcx Neg; 11/27 Bcx Neg CAD s/p CABG GERD/gastritis Afib HTN Dysphagia sp GT Aortic dissection s/p repair 2018 S/p PPM Parkinson's Disease Schizophrenia Anxiety COPD Chronic resp failure s/p trach Hx of tracheal bleeding NH resident ([facility]) VRE and MRSA colonized Plan: Cont vanco IV #5/7 given CONS bacteremia/sepsis Stop meropenem #5 given possible UTI, pna, hypotension - will stop when Avyvaz started Start tobramycin #1 per Pharmacy given UCx results Start Avycaz given worsening sepsis, arnett-R organism in UCx. D/w Pharmacy, approved Start micafungin #1 empiric for possible fungal sepsis given GIB, could have fungal translocation, takes some time to grow on BCx Repeat BCx given worsening WBC Remove raymond, daily bladder scans (d/w Nephro) D/w Micro lab about obtaining UCx sensi to Avycaz/Zerbaxa Trend Hg, GIB Trend BP, WBC 01/31 SP angelo/inh tobra #10 for pna 01/23 SP vanco IV #10 given CONS/GPC bacteremia 01/16 SP Zosyn #2 01/14 SP dex 10mg in ED 12/10 SP IV Gentamycin #10 12/07 SP Meropenem #10 12/01 SP IV Vancomycin #5 11/28 Sp Cefepime #2 and IV Gentamycin x1 Monitor CBC/CMP Monitor temp curve, hemodynamics Monitor resp status D/w RN and micro lab and Dr. Houston Thank you for this consult. [facility] will continue to follow. Subjective Allergies: Coded Allergies: No Known Allergies (Unverified , 10/10/17) AF WBC increasing to 34 UCx w/ arnett-resistant CRE/ESBL P.mirabilis, R-polyB, only sensitive to tobramycin Hg stable in 8s now Objective Last 24 Hour Vital Signs Date Time Temp Pulse Resp B/P (MAP) Pulse Ox O2 Delivery O2 Flow Rate FiO2 03/06/20 07:49 96.3 57 20 104/45 (64) 97 03/06/20 07:24 52 14 40 03/06/20 04:00 Mechanical Ventilator 03/06/20 04:00 40 03/06/20 04:00 98.7 56 17 102/36 (58) 97 03/06/20 03:44 42 03/06/20 00:00 56 03/06/20 00:00 96.5 55 19 120/70 (87) 100 03/06/20 00:00 Mechanical Ventilator 03/05/20 23:30 70 21 40 03/05/20 20:00 Mechanical Ventilator 03/05/20 20:00 40 03/05/20 20:00 96.5 51 20 91/51 (64) 100 03/05/20 20:00 60 03/05/20 19:05 54 21 40 03/05/20 16:00 40 03/05/20 16:00 58 03/05/20 16:00 Mechanical Ventilator 03/05/20 16:00 40 03/05/20 16:00 96.4 58 20 103/42 (62) 100 03/05/20 14:50 69 30 40 03/05/20 12:00 Mechanical Ventilator 03/05/20 12:00 62 03/05/20 12:00 40 03/05/20 12:00 96.5 70 20 122/74 (90) 100 03/05/20 11:21 66 33 40 Height (Feet): 5 Height (Inches): 3.00 Weight (Pounds): 128 Gen: NAD HEENT: NCAT, trach Pulm: BL chest rise on vent Abd: Soft, NTND, +PEG Ext: No c/c/e Skin: No visible rashes Neuro: Awake, minimally interactive Microbiology Date/Time Source Procedure Growth Status 03/03/20 13:25 Nasopharynx Coronavirus COVID-19 PCR (ROSITA) - Final Complete 03/03/20 11:16 Blood Blood Culture - Preliminary NO GROWTH AFTER 48 HOURS Resulted 03/03/20 11:06 Blood Blood Culture - Preliminary NO GROWTH AFTER 48 HOURS Resulted Laboratory Tests Test 03/05/20 18:20 03/05/20 20:00 03/05/20 21:36 03/06/20 04:30 White Blood Count 31.6 K/UL (4.8-10.8) *H 34.7 K/UL (4.8-10.8) *H Red Blood Count 2.65 M/UL (4.20-5.40) L 2.75 M/UL (4.20-5.40) L Hemoglobin 7.8 G/DL (12.0-16.0) L 8.3 G/DL (12.0-16.0) L Hematocrit 22.5 % (37.0-47.0) L 23.9 % (37.0-47.0) L Mean Corpuscular Volume 85 FL (80-99) 87 FL (80-99) Mean Corpuscular Hemoglobin 29.2 PG (27.0-31.0) 30.3 PG (27.0-31.0) Mean Corpuscular Hemoglobin Concent 34.5 G/DL (32.0-36.0) 34.9 G/DL (32.0-36.0) Red Cell Distribution Width 13.2 % (11.6-14.8) 13.1 % (11.6-14.8) Platelet Count 133 K/UL (150-450) L 122 K/UL (150-450) L Mean Platelet Volume 5.7 FL (6.5-10.1) L 6.3 FL (6.5-10.1) L Neutrophils (%) (Auto) % (45.0-75.0) % (45.0-75.0) Lymphocytes (%) (Auto) % (20.0-45.0) % (20.0-45.0) Monocytes (%) (Auto) % (1.0-10.0) % (1.0-10.0) Eosinophils (%) (Auto) % (0.0-3.0) % (0.0-3.0) Basophils (%) (Auto) % (0.0-2.0) % (0.0-2.0) Differential Total Cells Counted 100 100 Neutrophils % (Manual) 84 % (45-75) H 86 % (45-75) H Lymphocytes % (Manual) 5 % (20-45) L 7 % (20-45) L Monocytes % (Manual) 6 % (1-10) 6 % (1-10) Eosinophils % (Manual) 0 % (0-3) 1 % (0-3) Basophils % (Manual) 0 % (0-2) 0 % (0-2) Band Neutrophils 5 % (0-8) 0 % (0-8) Nucleated Red Blood Cells 1 /100 WBC 1 /100 WBC Platelet Estimate Decreased L Decreased L Platelet Morphology Normal Normal Polychromasia 2+ 1+ Poikilocytosis 1+ Anisocytosis 1+ Geovanna Cells 1+ Random Vancomycin Level 19.6 ug/mL Arterial Blood pH 7.389 (7.350-7.450) Arterial Blood Partial Pressure CO2 22.5 mmHg (35.0-45.0) *L Arterial Blood Partial Pressure O2 114.5 mmHg (75.0-100.0) H Arterial Blood HCO3 13.3 mmol/L (22.0-26.0) *L Arterial Blood Oxygen Saturation 97.4 % (95-100) Arterial Blood Base Excess -10.4 (-2-2) *L Rojas Test Positive Hypochromasia 1+ Sodium Level 142 MMOL/L (136-145) Potassium Level 3.8 MMOL/L (3.5-5.1) Chloride Level 107 MMOL/L (98-107) Carbon Dioxide Level 15 MMOL/L (21-32) L Anion Gap 20 mmol/L (5-15) H Blood Urea Nitrogen 171 mg/dL (7-18) #H Creatinine 3.5 MG/DL (0.55-1.30) H Estimat Glomerular Filtration Rate 14.0 mL/min (>60) Glucose Level 75 MG/DL (74-106) Uric Acid 9.6 MG/DL (2.6-7.2) H Calcium Level 7.3 MG/DL (8.5-10.1) L Phosphorus Level 7.0 MG/DL (2.5-4.9) H Magnesium Level 2.5 MG/DL (1.8-2.4) H Total Bilirubin 0.3 MG/DL (0.2-1.0) Aspartate Amino Transf (AST/SGOT) 33 U/L (15-37) Alanine Aminotransferase (ALT/SGPT) 12 U/L (12-78) Alkaline Phosphatase 96 U/L (46-116) Total Creatine Kinase 186 U/L (26-308) C-Reactive Protein, Quantitative 5.8 mg/dL (0.00-0.90) H Pro-B-Type Natriuretic Peptide > 27323 pg/mL (0-125) H Total Protein 5.0 G/DL (6.4-8.2) L Albumin 2.1 G/DL (3.4-5.0) L Globulin 2.9 g/dL Albumin/Globulin Ratio 0.7 (1.0-2.7) L Current Medications Medications (Trade) Dose Ordered Sig/Penny Route PRN Reason Start Time Stop Time Status Last Admin Dose Admin Acetaminophen (Tylenol) 650 mg Q6H PRN GT Mild Pain (Pain Scale 1-3) 03/02/20 22:30 04/01/20 22:29 Acetaminophen (Tylenol) 650 mg Q6H PRN GT Temp >100.5 03/03/20 03:00 04/01/20 22:29 Albumin Human 50 ml @ 50 mls/hr NEEDED PRN IV For hypotension 03/05/20 22:30 Chlorhexidine Gluconate (Ling-Hex 2%) 1 applic DAILY@2000 TOPIC 03/03/20 20:00 06/01/20 19:59 03/05/20 20:14 Dextrose/Sodium Chloride 1,000 ml @ 100 mls/hr Q10H IV 03/05/20 21:30 04/04/20 21:29 03/06/20 06:31 Hydralazine HCl (Apresoline) 25 mg Q6H PRN GT For High Blood Pressure 03/02/20 22:00 05/31/20 21:59 Meropenem 500 mg/ Sodium Chloride 55 ml @ 110 mls/hr Q12H IVPB 03/03/20 10:00 03/08/20 09:59 03/05/20 22:15 Metoclopramide HCl (Reglan) 5 mg Q8HR IVP 03/04/20 11:45 04/03/20 11:44 03/06/20 05:33 Midodrine (Pro-Amatine) 10 mg THREE TIMES A DAY GT 03/04/20 13:00 06/01/20 12:59 03/05/20 17:18 Pantoprazole (Protonix) 40 mg EVERY 12 HOURS IVP 1/20/21 21:00 04/02/20 20:59 03/05/20 20:14 Polyethylene Glycol (Miralax) 17 gm BEDTIME PRN GT Constipation 03/02/20 22:00 04/01/20 21:59 Sodium Hypochlorite (Dakin's Quarter Strength) 1 applic DAILY TOPIC 03/04/20 09:00 04/03/20 08:59 03/05/20 09:13 Vancomycin HCl ([facility] pharmacy to dose) 1 ea DAILY PRN MISC Per rx protocol 03/03/20 09:15 04/02/20 09:14 Ro Pack M.D. Mar 06, 2020 09:17
[2020-03-06] MEDS: Micafungin 100 MG in NS 110 ML IVPB SCH (10:18)
--- NOTE | 2020-03-06 10:34 | Surgery Progress Note ---
Surgery Progress Note Subjective Additional Comments leukocytosis anemia heme input noted no n/v 40% peep 5 sat high 80-'s Objective Last 24 Hour Vital Signs Date Time Temp Pulse Resp B/P (MAP) Pulse Ox O2 Delivery O2 Flow Rate FiO2 03/06/20 07:49 96.3 57 20 104/45 (64) 97 03/06/20 07:24 52 14 40 03/06/20 04:00 Mechanical Ventilator 03/06/20 04:00 40 03/06/20 04:00 98.7 56 17 102/36 (58) 97 03/06/20 03:44 42 03/06/20 00:00 56 03/06/20 00:00 96.5 55 19 120/70 (87) 100 03/06/20 00:00 Mechanical Ventilator 03/05/20 23:30 70 21 40 03/05/20 20:00 Mechanical Ventilator 03/05/20 20:00 40 03/05/20 20:00 96.5 51 20 91/51 (64) 100 03/05/20 20:00 60 03/05/20 19:05 54 21 40 03/05/20 16:00 40 03/05/20 16:00 58 03/05/20 16:00 Mechanical Ventilator 03/05/20 16:00 40 03/05/20 16:00 96.4 58 20 103/42 (62) 100 03/05/20 14:50 69 30 40 03/05/20 12:00 Mechanical Ventilator 03/05/20 12:00 62 03/05/20 12:00 40 03/05/20 12:00 96.5 70 20 122/74 (90) 100 03/05/20 11:21 66 33 40 I&O Intake and Output 03/05/20 03/06/20 19:00 07:00 Intake Total 165 ml 910 ml Output Total 100 ml 15 ml Balance 65 ml 895 ml Intake Free Water 60 ml IV Total 55 ml 910 ml Tube Feeding 50 ml Output Urine Total 100 ml 15 ml # Bowel Movements 5 1 Dressing: saturated Cardiovascular: RSR Respiratory: decreased breath sounds Abdomen: non-tender, present bowel sounds, non-distended Extremities: edema, no tenderness, no cyanosis Laboratory Tests Test 03/05/20 18:20 03/05/20 20:00 03/05/20 21:36 03/06/20 04:30 White Blood Count 31.6 K/UL (4.8-10.8) *H 34.7 K/UL (4.8-10.8) *H Red Blood Count 2.65 M/UL (4.20-5.40) L 2.75 M/UL (4.20-5.40) L Hemoglobin 7.8 G/DL (12.0-16.0) L 8.3 G/DL (12.0-16.0) L Hematocrit 22.5 % (37.0-47.0) L 23.9 % (37.0-47.0) L Mean Corpuscular Volume 85 FL (80-99) 87 FL (80-99) Mean Corpuscular Hemoglobin 29.2 PG (27.0-31.0) 30.3 PG (27.0-31.0) Mean Corpuscular Hemoglobin Concent 34.5 G/DL (32.0-36.0) 34.9 G/DL (32.0-36.0) Red Cell Distribution Width 13.2 % (11.6-14.8) 13.1 % (11.6-14.8) Platelet Count 133 K/UL (150-450) L 122 K/UL (150-450) L Mean Platelet Volume 5.7 FL (6.5-10.1) L 6.3 FL (6.5-10.1) L Neutrophils (%) (Auto) % (45.0-75.0) % (45.0-75.0) Lymphocytes (%) (Auto) % (20.0-45.0) % (20.0-45.0) Monocytes (%) (Auto) % (1.0-10.0) % (1.0-10.0) Eosinophils (%) (Auto) % (0.0-3.0) % (0.0-3.0) Basophils (%) (Auto) % (0.0-2.0) % (0.0-2.0) Differential Total Cells Counted 100 100 Neutrophils % (Manual) 84 % (45-75) H 86 % (45-75) H Lymphocytes % (Manual) 5 % (20-45) L 7 % (20-45) L Monocytes % (Manual) 6 % (1-10) 6 % (1-10) Eosinophils % (Manual) 0 % (0-3) 1 % (0-3) Basophils % (Manual) 0 % (0-2) 0 % (0-2) Band Neutrophils 5 % (0-8) 0 % (0-8) Nucleated Red Blood Cells 1 /100 WBC 1 /100 WBC Platelet Estimate Decreased L Decreased L Platelet Morphology Normal Normal Polychromasia 2+ 1+ Poikilocytosis 1+ Anisocytosis 1+ Geovanna Cells 1+ Random Vancomycin Level 19.6 ug/mL Arterial Blood pH 7.389 (7.350-7.450) Arterial Blood Partial Pressure CO2 22.5 mmHg (35.0-45.0) *L Arterial Blood Partial Pressure O2 114.5 mmHg (75.0-100.0) H Arterial Blood HCO3 13.3 mmol/L (22.0-26.0) *L Arterial Blood Oxygen Saturation 97.4 % (95-100) Arterial Blood Base Excess -10.4 (-2-2) *L Rojas Test Positive Hypochromasia 1+ Sodium Level 142 MMOL/L (136-145) Potassium Level 3.8 MMOL/L (3.5-5.1) Chloride Level 107 MMOL/L (98-107) Carbon Dioxide Level 15 MMOL/L (21-32) L Anion Gap 20 mmol/L (5-15) H Blood Urea Nitrogen 171 mg/dL (7-18) #H Creatinine 3.5 MG/DL (0.55-1.30) H Estimat Glomerular Filtration Rate 14.0 mL/min (>60) Glucose Level 75 MG/DL (74-106) Uric Acid 9.6 MG/DL (2.6-7.2) H Calcium Level 7.3 MG/DL (8.5-10.1) L Phosphorus Level 7.0 MG/DL (2.5-4.9) H Magnesium Level 2.5 MG/DL (1.8-2.4) H Total Bilirubin 0.3 MG/DL (0.2-1.0) Aspartate Amino Transf (AST/SGOT) 33 U/L (15-37) Alanine Aminotransferase (ALT/SGPT) 12 U/L (12-78) Alkaline Phosphatase 96 U/L (46-116) Total Creatine Kinase 186 U/L (26-308) C-Reactive Protein, Quantitative 5.8 mg/dL (0.00-0.90) H Pro-B-Type Natriuretic Peptide > 68607 pg/mL (0-125) H Total Protein 5.0 G/DL (6.4-8.2) L Albumin 2.1 G/DL (3.4-5.0) L Globulin 2.9 g/dL Albumin/Globulin Ratio 0.7 (1.0-2.7) L Plan Problems: (1) Pancreatitis Assessment & Plan: (1) Pancreatitis Assessment & Plan: 49-year-old female well-known to me presents with pancreatitis lipase elevated greater than 2000 history of this in the past. Tolerating tube feeds. Okay for diet. Continue to trend labs. Abdominal examination otherwise benign. Will obtain imaging as necessary. Currently leukocytosis significant anemia. Heme input appreciated. Thank you will follow with recommendations Assessment & Plan: Leukocytosis anemia abnormal labs elevated LFTs elevated lipase acute pancreatitis along with potential pneumonia UTI Covid negative C. difficile negative. Continue antibiotics. Trend labs. DAILY ESTIMATED NEEDS: Needs based on Critical care, wound, renal dysfunction 59.5 kg 27-22 kcals/kg 1509-8098 total kcals W/ HD (1.5-2.0) g protein/kg 89-119 g total protein Fluid per MD NUTRITION DIAGNOSIS: * Swallowing difficulty R/T dysphagia, respiratory status as evidenced by vent dep via trach, GT Dep. * Increase kcal and pro needs r/t wound healing, renal dysfunction as evidenced by h/o stage 4 sacral wound, and HD. CURRENT TF: Nepro @ 45ml/hr x 24 hrs ENTERAL NUTRITION RECOMMENDATIONS: Nepro @ 45ml/hr x 24 hrs + Prosource 1pkt QD to provide 1080ml, 1944 kcal, 87g + 11g pro, 785ml free H2O * Advance as tolerated to goal. * Add Prosource 1pkt QD to better meet increased protein needs (additional 11g prot) * Water flush per MD/ HOB over 30 degrees ADDITIONAL RECOMMENDATIONS: * Maintain calibrated bed scale * Monitor for HD continuity * F/up w/ WC eval-> add FRANKLIN in 4oz H2O BID via GT * On lactulose, monitor for BM * Monitor BG (hypoglycemic this morning), rec bed side BG checks . Assessment & Plan: Pt presented on admission with Full Thickness Sacral Pressure Injury (L)11cm x (W)13.5cm x (D)1.6cm, Undermining clockwise 7-3 by 3cm @7o'clock. Base of wound is 90% necrotic,10% mixed pink and slough.Epibole and maceration noted along borders. Periwound ,along borders is indurated with darker skin tone . No elevation in skin temp ,or erythema noted. Wound is malodorous. Small amt brown exudate noted. MASD noted to perineum, Bilat ischial tuberosities and medial aspects of both upper thighs. Affected areas are erythematous and denuded. R Heel is boggy with non-blanchable erythema. L Heel is boggy with non-blanchable erythema. Tx.Plan:Cleanse Sacral Wound with Dakin's 0.125% Tawanna. Loosely Pack Wound with Dakin's moistened Kerlix. Apply Moisture Barrier Paste periwound. Cover with Optifoam drsg Daily and prn. Apply Moisture Barrier Paste to Perineum and Medial aspects of both upper thighs with each Incontinence care. Apply Cavilon Skin Barrier to both heels. Cover each Heel with Optifoam drsg. Change every 7 days and prn. Reposition at least every 2hours or as tolerated. Off-load heels with Pillow. APM/JENNIFER Mattress overlay (2) Elevated troponin (3) Anemia (4) Renal failure (5) ARF (acute renal failure) (6) Pacemaker (7) Sepsis (8) Hyponatremia (9) Chronic respiratory failure (10) Dehydration (11) Hypokalemia (12) Acidosis (13) Ascites (14) Bacteremia (15) Depression (16) Hypernatremia (17) Hyponatremia (18) Pleural effusion (19) Proteinuria (20) Respiratory failure (21) Schizophrenia (22) Electrolyte imbalance (23) Hypoxia (24) UTI (urinary tract infection) (25) Pneumonia (26) ACS (acute coronary syndrome) (27) NSTEMI (non-ST elevated myocardial infarction) (28) Aortic dissection, thoracic (29) Tracheostomy in place (30) Respiratory failure, acute and chronic (31) JAVIER (acute kidney injury) (32) JAVIER (acute kidney injury) (33) Abrasion of lip, initial encounter (34) COPD with exacerbation (35) Elevated alkaline phosphatase level (36) Renal failure (ARF), acute on chronic (37) Acute encephalopathy (38) HCAP (healthcare-associated pneumonia) (39) Elevated lipase (40) Sacral decubitus ulcer, stage IV (41) GT CLOGGED (42) Ventilator dependence (43) Severe anemia (44) Feeding by G-tube Lane Saavedra Mar 06, 2020 10:34
--- NOTE | 2020-03-06 11:08 | NUR ---
CASE MANAGEMENT:REVIEW 03/06/20 SI: SEPSIS. AC/CHR RENAL FAILURE(WORSENING RENAL FXN) TRACH/VENT/GT 96.3 57 20 104/45 97% ON VENT SUPPORT W/40% FIO2 WBC+34.7 H/H-8.3/23.9 PLT-122 BUN+171 CR+3.5 IS: IV CEFTAZIDIME Q12 IV TOBRAMYCIN IV POST HD IV MICAFUNGIN Q24 IVF@100/HR IV PROTONIX Q12 IV REGLAN Q8HRS : STEP DOWN UNIT [facility]
--- NOTE | 2020-03-06 11:10 | Pulmonology Progress Note ---
Subjective ROS Limited/Unobtainable: Yes Interval Events: none major reported per nursing HEENT: Repors: no symptoms Respiratory: Reports: no symptoms Cardiovascular: Reports: no symptoms Gastrointestinal/Abdominal: Reports: diarrhea Allergies: Coded Allergies: No Known Allergies (Unverified , 10/10/17) All Systems: reviewed and negative except above Objective Last 24 Hour Vital Signs Date Time Temp Pulse Resp B/P (MAP) Pulse Ox O2 Delivery O2 Flow Rate FiO2 03/06/20 07:49 96.3 57 20 104/45 (64) 97 03/06/20 07:24 52 14 40 03/06/20 04:00 Mechanical Ventilator 03/06/20 04:00 40 03/06/20 04:00 98.7 56 17 102/36 (58) 97 03/06/20 03:44 42 03/06/20 00:00 56 03/06/20 00:00 96.5 55 19 120/70 (87) 100 03/06/20 00:00 Mechanical Ventilator 03/05/20 23:30 70 21 40 03/05/20 20:00 Mechanical Ventilator 03/05/20 20:00 40 03/05/20 20:00 96.5 51 20 91/51 (64) 100 03/05/20 20:00 60 03/05/20 19:05 54 21 40 03/05/20 16:00 40 03/05/20 16:00 58 03/05/20 16:00 Mechanical Ventilator 03/05/20 16:00 40 03/05/20 16:00 96.4 58 20 103/42 (62) 100 03/05/20 14:50 69 30 40 03/05/20 12:00 Mechanical Ventilator 03/05/20 12:00 62 03/05/20 12:00 40 03/05/20 12:00 96.5 70 20 122/74 (90) 100 03/05/20 11:21 66 33 40 Intake and Output 03/05/20 03/06/20 19:00 07:00 Intake Total 165 ml 910 ml Output Total 100 ml 15 ml Balance 65 ml 895 ml Intake Free Water 60 ml IV Total 55 ml 910 ml Tube Feeding 50 ml Output Urine Total 100 ml 15 ml # Bowel Movements 5 1 General Appearance: no acute distress HEENT: atraumatic Respiratory: lungs clear Cardiovascular: regular rhythm, bradycardia Microbiology Date/Time Source Procedure Growth Status 1/19/21 13:25 Nasopharynx Coronavirus COVID-19 PCR ([facility]) - Final Complete 03/03/20 11:16 Blood Blood Culture - Preliminary NO GROWTH AFTER 48 HOURS Resulted Laboratory Tests 03/05/20 18:20: White Blood Count 31.6*H, Red Blood Count 2.65L, Hemoglobin 7.8L, Hematocrit 22.5L, Mean Corpuscular Volume 85, Mean Corpuscular Hemoglobin 29.2, Mean Corpuscular Hemoglobin Concent 34.5, Red Cell Distribution Width 13.2, Platelet Count 133L, Mean Platelet Volume 5.7L, Neutrophils (%) (Auto) , Lymphocytes (%) (Auto) , Monocytes (%) (Auto) , Eosinophils (%) (Auto) , Basophils (%) (Auto) , Differential Total Cells Counted 100, Neutrophils % (Manual) 84H, Lymphocytes % (Manual) 5L, Monocytes % (Manual) 6, Eosinophils % (Manual) 0, Basophils % (Manual) 0, Band Neutrophils 5, Nucleated Red Blood Cells 1, Platelet Estimate DecreasedL, Platelet Morphology Normal, Polychromasia 2+, Poikilocytosis 1+, Anisocytosis 1+, Harwood Cells 1+ 03/05/20 20:00: Random Vancomycin Level 19.6 03/05/20 21:36: Arterial Blood pH 7.389, Arterial Blood Partial Pressure CO2 22.5*L, Arterial Blood Partial Pressure O2 114.5H, Arterial Blood HCO3 13.3*L, Arterial Blood Oxygen Saturation 97.4, Arterial Blood Base Excess -10.4*L, Rojas Test Positive 03/06/20 04:30: White Blood Count 34.7*H, Red Blood Count 2.75L, Hemoglobin 8.3L, Hematocrit 23.9L, Mean Corpuscular Volume 87, Mean Corpuscular Hemoglobin 30.3, Mean Corpuscular Hemoglobin Concent 34.9, Red Cell Distribution Width 13.1, Platelet Count 122L, Mean Platelet Volume 6.3L, Neutrophils (%) (Auto) , Lymphocytes (%) (Auto) , Monocytes (%) (Auto) , Eosinophils (%) (Auto) , Basophils (%) (Auto) , Differential Total Cells Counted 100, Neutrophils % (Manual) 86H, Lymphocytes % (Manual) 7L, Monocytes % (Manual) 6, Eosinophils % (Manual) 1, Basophils % (Manual) 0, Band Neutrophils 0, Nucleated Red Blood Cells 1, Platelet Estimate DecreasedL, Platelet Morphology Normal, Polychromasia 1+, Hypochromasia 1+, Sodium Level 142, Potassium Level 3.8, Chloride Level 107, Carbon Dioxide Level 15L, Anion Gap 20H, Blood Urea Nitrogen 171#H, Creatinine 3.5H, Estimat Glomerular Filtration Rate 14.0, Glucose Level 75, Uric Acid 9.6H, Calcium Level 7.3L, Phosphorus Level 7.0H, Magnesium Level 2.5H, Total Bilirubin 0.3, Aspartate Amino Transf (AST/SGOT) 33, Alanine Aminotransferase (ALT/SGPT) 12, Alkaline Phosphatase 96, Total Creatine Kinase 186, C-Reactive Protein, Quantitative 5.8H, Pro-B-Type Natriuretic Peptide > 89817K, Total Protein 5.0L, Albumin 2.1L, Globulin 2.9, Albumin/Globulin Ratio 0.7L Current Medications Medications (Trade) Dose Ordered Sig/Penny Route PRN Reason Start Time Stop Time Status Last Admin Dose Admin Acetaminophen (Tylenol) 650 mg Q6H PRN GT Mild Pain (Pain Scale 1-3) 03/02/20 22:30 04/01/20 22:29 Acetaminophen (Tylenol) 650 mg Q6H PRN GT Temp >100.5 03/03/20 03:00 04/01/20 22:29 Albumin Human 50 ml @ 50 mls/hr NEEDED PRN IV For hypotension 03/05/20 22:30 Ceftazidime/ Avibactam 0.94 gm/ Dextrose 110 ml @ 110 mls/hr Q12HR IV 03/06/20 13:00 03/13/20 12:59 Chlorhexidine Gluconate (Ling-Hex 2%) 1 applic DAILY@2000 TOPIC 03/03/20 20:00 06/01/20 19:59 03/05/20 20:14 Dextrose/Sodium Chloride 1,000 ml @ 100 mls/hr Q10H IV 03/05/20 21:30 04/04/20 21:29 03/06/20 06:31 Hydralazine HCl (Apresoline) 25 mg Q6H PRN GT For High Blood Pressure 03/02/20 22:00 05/31/20 21:59 Metoclopramide HCl (Reglan) 5 mg Q8HR IVP 03/04/20 11:45 04/03/20 11:44 03/06/20 05:33 Micafungin Sodium 100 mg/Sodium Chloride 110 ml @ 110 mls/hr Q24H IVPB 03/06/20 11:00 03/13/20 10:59 03/06/20 10:18 Midodrine (Pro-Amatine) 10 mg THREE TIMES A DAY GT 03/04/20 13:00 06/01/20 12:59 03/06/20 09:08 Pantoprazole (Protonix) 40 mg EVERY 12 HOURS IVP 03/04/20 21:00 04/02/20 20:59 03/06/20 09:08 Polyethylene Glycol (Miralax) 17 gm BEDTIME PRN GT Constipation 03/02/20 22:00 04/01/20 21:59 Sodium Hypochlorite (Dakin's Quarter Strength) 1 applic DAILY TOPIC 03/04/20 09:00 04/03/20 08:59 03/06/20 09:09 Tobramycin Protocol (Tobramycin pharmacy to dose) 1 ea DAILY PRN MISC Per rx protocol 03/06/20 09:15 04/05/20 09:14 Tobramycin Sulfate 80 mg/ Sodium Chloride 55 ml @ 110 mls/hr POSTHD IV 03/06/20 12:00 03/13/20 11:59 Vancomycin HCl (Vanco pharmacy to dose) 1 ea DAILY PRN MISC Per rx protocol 03/03/20 09:15 04/02/20 09:14 Assessment/Plan Assessment/Plan 1. Chronic respiratory failure. 2. Mechanical ventilation. - current setting at AC 14, Vt 500, FiO2 40%, PEEP 5 saturating at 92-93% - continue current setting - suction secretions as needed 3. Chronic tracheostomy. 4. Chronic G-tube. - now NPO 5. Anemia. - s/p transfusion - stool OB positive 6. Renal failure. 7. Leukocytosis and sepsis. 8. Sepsis UTI 9. Gram positive cocci bacteremia 10. COVID-19 negative 11. Diarrhea - C. diff neg We will follow carefully. ID and Hematology following. The care for this patient was discussed with my supervising physician Time spent for this case was approximately 31 minutes Cruz Wilson Mar 06, 2020 11:10
--- NOTE | 2020-03-06 11:38 | NUR ---
NURSE NOTES: Dr Pack visited pt and is aware about ESBL and WBC 34.7, and other lab results and V/S , ordered to D/C Ester, and will F/U with Dr Houston regarding Norman. noted and carried out. will continue to monitor.
[2020-03-06 12:00] VITALS: BP 105/47
--- NOTE | 2020-03-06 12:34 | NUR ---
NURSE NOTES: Dr Mccauley visited pt and is aware about NPO due to gi bleeding, no new order received, will F/U with Dr Aranda. And due to diarrhea Dr Mccauley ordered Imodium PRN, noted and carried out. will continue to monitor. Addendum: 03/06/20 at 1328 by Aly Mart RN ERROR will F/U with Dr Dong.
--- NOTE | 2020-03-06 12:38 | General Progress Note ---
Subjective ROS Limited/Unobtainable: No Allergies: Coded Allergies: No Known Allergies (Unverified , 10/10/17) Objective Last 24 Hour Vital Signs Date Time Temp Pulse Resp B/P (MAP) Pulse Ox O2 Delivery O2 Flow Rate FiO2 03/06/20 12:00 40 03/06/20 12:00 96.9 56 19 105/47 (66) 97 03/06/20 11:48 Mechanical Ventilator 03/06/20 08:00 Mechanical Ventilator 03/06/20 08:00 40 03/06/20 07:49 96.3 57 20 104/45 (64) 97 03/06/20 07:48 56 03/06/20 07:24 52 14 40 03/06/20 04:00 Mechanical Ventilator 03/06/20 04:00 40 03/06/20 04:00 98.7 56 17 102/36 (58) 97 03/06/20 03:44 42 03/06/20 00:00 56 03/06/20 00:00 96.5 55 19 120/70 (87) 100 03/06/20 00:00 Mechanical Ventilator 03/05/20 23:30 70 21 40 03/05/20 20:00 Mechanical Ventilator 03/05/20 20:00 40 03/05/20 20:00 96.5 51 20 91/51 (64) 100 03/05/20 20:00 60 03/05/20 19:05 54 21 40 03/05/20 16:00 40 03/05/20 16:00 58 03/05/20 16:00 Mechanical Ventilator 03/05/20 16:00 40 03/05/20 16:00 96.4 58 20 103/42 (62) 100 03/05/20 14:50 69 30 40 Intake and Output 03/05/20 03/06/20 19:00 07:00 Intake Total 165 ml 910 ml Output Total 100 ml 15 ml Balance 65 ml 895 ml Intake Free Water 60 ml IV Total 55 ml 910 ml Tube Feeding 50 ml Output Urine Total 100 ml 15 ml # Bowel Movements 5 1 Laboratory Tests 03/05/20 18:20: White Blood Count 31.6*H, Red Blood Count 2.65L, Hemoglobin 7.8L, Hematocrit 22.5L, Mean Corpuscular Volume 85, Mean Corpuscular Hemoglobin 29.2, Mean Corpuscular Hemoglobin Concent 34.5, Red Cell Distribution Width 13.2, Platelet Count 133L, Mean Platelet Volume 5.7L, Neutrophils (%) (Auto) , Lymphocytes (%) (Auto) , Monocytes (%) (Auto) , Eosinophils (%) (Auto) , Basophils (%) (Auto) , Differential Total Cells Counted 100, Neutrophils % (Manual) 84H, Lymphocytes % (Manual) 5L, Monocytes % (Manual) 6, Eosinophils % (Manual) 0, Basophils % (Manual) 0, Band Neutrophils 5, Nucleated Red Blood Cells 1, Platelet Estimate DecreasedL, Platelet Morphology Normal, Polychromasia 2+, Poikilocytosis 1+, Anisocytosis 1+, Geovanna Cells 1+ 03/05/20 20:00: Random Vancomycin Level 19.6 03/05/20 21:36: Arterial Blood pH 7.389, Arterial Blood Partial Pressure CO2 22.5*L, Arterial Blood Partial Pressure O2 114.5H, Arterial Blood HCO3 13.3*L, Arterial Blood Oxygen Saturation 97.4, Arterial Blood Base Excess -10.4*L, Rojas Test Positive 03/06/20 04:30: White Blood Count 34.7*H, Red Blood Count 2.75L, Hemoglobin 8.3L, Hematocrit 23.9L, Mean Corpuscular Volume 87, Mean Corpuscular Hemoglobin 30.3, Mean Corpuscular Hemoglobin Concent 34.9, Red Cell Distribution Width 13.1, Platelet Count 122L, Mean Platelet Volume 6.3L, Neutrophils (%) (Auto) , Lymphocytes (%) (Auto) , Monocytes (%) (Auto) , Eosinophils (%) (Auto) , Basophils (%) (Auto) , Differential Total Cells Counted 100, Neutrophils % (Manual) 86H, Lymphocytes % (Manual) 7L, Monocytes % (Manual) 6, Eosinophils % (Manual) 1, Basophils % (Manual) 0, Band Neutrophils 0, Nucleated Red Blood Cells 1, Platelet Estimate DecreasedL, Platelet Morphology Normal, Polychromasia 1+, Hypochromasia 1+, Sodium Level 142, Potassium Level 3.8, Chloride Level 107, Carbon Dioxide Level 15L, Anion Gap 20H, Blood Urea Nitrogen 171#H, Creatinine 3.5H, Estimat Glomerular Filtration Rate 14.0, Glucose Level 75, Uric Acid 9.6H, Calcium Level 7.3L, Phosphorus Level 7.0H, Magnesium Level 2.5H, Total Bilirubin 0.3, Aspartate Amino Transf (AST/SGOT) 33, Alanine Aminotransferase (ALT/SGPT) 12, Alkaline Phosphatase 96, Total Creatine Kinase 186, C-Reactive Protein, Quantitative 5.8H, Pro-B-Type Natriuretic Peptide > 07502O, Total Protein 5.0L, Albumin 2.1L, Globulin 2.9, Albumin/Globulin Ratio 0.7L Height (Feet): 5 Height (Inches): 3.00 Weight (Pounds): 128 General Appearance: no apparent distress EENT: normal ENT inspection Neck: normal alignment Cardiovascular: normal rate Respiratory/Chest: decreased breath sounds Abdomen: normal bowel sounds, non tender, soft Extremities: non-tender Assessment/Plan Problem List: (1) Hx of CABG ICD Codes: Z95.1 - Presence of aortocoronary bypass graft SNOMED: 516765664, 123235300 (2) History of tracheostomy ICD Codes: Z98.890 - Other specified postprocedural states SNOMED: 372896584, 159667330 (3) PEG (percutaneous endoscopic gastrostomy) status ICD Codes: Z93.1 - Gastrostomy status SNOMED: 027260566, 315381746 (4) Renal failure ICD Codes: N19 - Unspecified kidney failure SNOMED: 18953957, 495714954 (5) Severe anemia ICD Codes: D64.9 - Anemia, unspecified SNOMED: 480649557 Assessment/Plan: s/p EGD gastric ulcer on ppi npo fu H&H TF for tomorrow if stable Inder Mccauley MD Mar 06, 2020 12:38
[2020-03-06] MEDS: AVIBACTAM IV SCH ×2 (13:01→21:32)
[2020-03-06] MEDS: D5W IV SCH ×2 (13:01→21:32)
[2020-03-06] MEDS: CEFTAZIDIME IV SCH ×2 (13:01→21:32)
--- NOTE | 2020-03-06 13:02 | NUR ---
NURSE NOTES: Reglan 5mg wasted in med room.
--- NOTE | 2020-03-06 13:42 | Nephrology Progress Note ---
Assessment/Plan Problem List: (1) Renal failure (ARF), acute on chronic (2) Anemia (3) Hyponatremia (4) Respiratory failure Assessment (1) JAVIER (acute kidney injury) (2) Renal failure (ARF), acute on chronic (3) Feeding by G-tube (4) Tracheostomy in place (5) Electrolyte imbalance, hyponatremia (6) Anemia, severe (7) Respiratory failure, acute and chronic (8) history of elevated lipase, pancreatitis (9) Elevated troponin I (10) Sepsis Plan March 06: Labs reviewed. Dialyzed yesterday. Will reorde dialysis for today. Continue to monitor renal parameters. Hemoglobin 8.4. Patient full code. March 05: Labs reviewed. Patient did not receive dialysis until this morning. Proceed with dialysis. Continue to monitor renal parameters and hemoglobin and hematocrit. March 04: Labs reviewed. Hemoglobin lower. Patient actively bleeding. Was not dialyzed yesterday. Due for GI endoscopy. Continue fluid challenge. Transfusion as needed. Dialysis today. March 03: Labs reviewed. Dialysis ordered. Blood pressure medication all discontinued due to hypotensive state. Albumin bolus given. Continue to monitor renal parameters. Medication list reviewed. Midodrin for low blood pressure ordered Subjective ROS Limited/Unobtainable: Yes Objective Objective Last 24 Hour Vital Signs Date Time Temp Pulse Resp B/P (MAP) Pulse Ox O2 Delivery O2 Flow Rate FiO2 03/06/20 12:00 40 03/06/20 12:00 96.9 56 19 105/47 (66) 97 03/06/20 11:48 Mechanical Ventilator 03/06/20 11:31 57 03/06/20 11:08 55 20 40 03/06/20 08:00 Mechanical Ventilator 03/06/20 08:00 40 03/06/20 07:49 96.3 57 20 104/45 (64) 97 03/06/20 07:48 56 03/06/20 07:24 52 14 40 03/06/20 04:00 Mechanical Ventilator 03/06/20 04:00 40 03/06/20 04:00 98.7 56 17 102/36 (58) 97 03/06/20 03:44 42 03/06/20 00:00 56 03/06/20 00:00 96.5 55 19 120/70 (87) 100 03/06/20 00:00 Mechanical Ventilator 03/05/20 23:30 70 21 40 03/05/20 20:00 Mechanical Ventilator 03/05/20 20:00 40 03/05/20 20:00 96.5 51 20 91/51 (64) 100 03/05/20 20:00 60 03/05/20 19:05 54 21 40 03/05/20 16:00 40 03/05/20 16:00 58 03/05/20 16:00 Mechanical Ventilator 03/05/20 16:00 40 03/05/20 16:00 96.4 58 20 103/42 (62) 100 03/05/20 14:50 69 30 40 Intake and Output 03/05/20 03/06/20 19:00 07:00 Intake Total 165 ml 1010 ml Output Total 100 ml 15 ml Balance 65 ml 995 ml Intake Free Water 60 ml IV Total 55 ml 1010 ml Tube Feeding 50 ml Output Urine Total 100 ml 15 ml # Bowel Movements 5 1 Current Medications Medications (Trade) Dose Ordered Sig/Penny Route PRN Reason Start Time Stop Time Status Last Admin Dose Admin Acetaminophen (Tylenol) 650 mg Q6H PRN GT Mild Pain (Pain Scale 1-3) 03/02/20 22:30 04/01/20 22:29 Acetaminophen (Tylenol) 650 mg Q6H PRN GT Temp >100.5 03/03/20 03:00 04/01/20 22:29 Albumin Human 50 ml @ 50 mls/hr NEEDED PRN IV For hypotension 03/05/20 22:30 03/06/20 22:29 Ceftazidime/ Avibactam 0.94 gm/ Dextrose 110 ml @ 110 mls/hr Q12HR IV 03/06/20 13:00 03/13/20 12:59 03/06/20 13:01 Chlorhexidine Gluconate (Ling-Hex 2%) 1 applic DAILY@2000 TOPIC 03/03/20 20:00 06/01/20 19:59 03/05/20 20:14 Dextrose/Sodium Chloride 1,000 ml @ 100 mls/hr Q10H IV 03/05/20 21:30 04/04/20 21:29 03/06/20 06:31 Hydralazine HCl (Apresoline) 25 mg Q6H PRN GT For High Blood Pressure 03/02/20 22:00 05/31/20 21:59 Loperamide HCl (Imodium) 2 mg Q6H PRN GT Diarrhea 03/06/20 12:45 04/05/20 12:44 03/06/20 13:01 Metoclopramide HCl (Reglan) 5 mg Q8HR IVP 03/04/20 11:45 04/03/20 11:44 03/06/20 13:02 Micafungin Sodium 100 mg/Sodium Chloride 110 ml @ 110 mls/hr Q24H IVPB 03/06/20 11:00 03/13/20 10:59 03/06/20 10:18 Midodrine (Pro-Amatine) 10 mg THREE TIMES A DAY GT 03/04/20 13:00 06/01/20 12:59 03/06/20 13:01 Pantoprazole (Protonix) 40 mg EVERY 12 HOURS IVP 03/04/20 21:00 04/02/20 20:59 03/06/20 09:08 Polyethylene Glycol (Miralax) 17 gm BEDTIME PRN GT Constipation 03/02/20 22:00 04/01/20 21:59 Sodium Hypochlorite (Dakin's Quarter Strength) 1 applic DAILY TOPIC 03/04/20 09:00 04/03/20 08:59 03/06/20 09:09 Tobramycin Protocol (Tobramycin pharmacy to dose) 1 ea DAILY PRN MISC Per rx protocol 03/06/20 09:15 04/05/20 09:14 Tobramycin Sulfate 80 mg/ Sodium Chloride 55 ml @ 110 mls/hr POSTHD IV 03/06/20 12:00 03/13/20 11:59 Vancomycin HCl (Vanco pharmacy to dose) 1 ea DAILY PRN MISC Per rx protocol 03/03/20 09:15 04/02/20 09:14 Laboratory Tests 03/05/20 18:20: White Blood Count 31.6*H, Red Blood Count 2.65L, Hemoglobin 7.8L, Hematocrit 22.5L, Mean Corpuscular Volume 85, Mean Corpuscular Hemoglobin 29.2, Mean Corpuscular Hemoglobin Concent 34.5, Red Cell Distribution Width 13.2, Platelet Count 133L, Mean Platelet Volume 5.7L, Neutrophils (%) (Auto) , Lymphocytes (%) (Auto) , Monocytes (%) (Auto) , Eosinophils (%) (Auto) , Basophils (%) (Auto) , Differential Total Cells Counted 100, Neutrophils % (Manual) 84H, Lymphocytes % (Manual) 5L, Monocytes % (Manual) 6, Eosinophils % (Manual) 0, Basophils % (Manual) 0, Band Neutrophils 5, Nucleated Red Blood Cells 1, Platelet Estimate DecreasedL, Platelet Morphology Normal, Polychromasia 2+, Poikilocytosis 1+, Anisocytosis 1+, Geovanna Cells 1+ 03/05/20 20:00: Random Vancomycin Level 19.6 03/05/20 21:36: Arterial Blood pH 7.389, Arterial Blood Partial Pressure CO2 22.5*L, Arterial Blood Partial Pressure O2 114.5H, Arterial Blood HCO3 13.3*L, Arterial Blood Oxygen Saturation 97.4, Arterial Blood Base Excess -10.4*L, Rojas Test Positive 03/06/20 04:30: White Blood Count 34.7*H, Red Blood Count 2.75L, Hemoglobin 8.3L, Hematocrit 23.9L, Mean Corpuscular Volume 87, Mean Corpuscular Hemoglobin 30.3, Mean Corpuscular Hemoglobin Concent 34.9, Red Cell Distribution Width 13.1, Platelet Count 122L, Mean Platelet Volume 6.3L, Neutrophils (%) (Auto) , Lymphocytes (%) (Auto) , Monocytes (%) (Auto) , Eosinophils (%) (Auto) , Basophils (%) (Auto) , Differential Total Cells Counted 100, Neutrophils % (Manual) 86H, Lymphocytes % (Manual) 7L, Monocytes % (Manual) 6, Eosinophils % (Manual) 1, Basophils % (Manual) 0, Band Neutrophils 0, Nucleated Red Blood Cells 1, Platelet Estimate DecreasedL, Platelet Morphology Normal, Polychromasia 1+, Hypochromasia 1+, Sodium Level 142, Potassium Level 3.8, Chloride Level 107, Carbon Dioxide Level 15L, Anion Gap 20H, Blood Urea Nitrogen 171#H, Creatinine 3.5H, Estimat Glomerular Filtration Rate 14.0, Glucose Level 75, Uric Acid 9.6H, Calcium Level 7.3L, Phosphorus Level 7.0H, Magnesium Level 2.5H, Total Bilirubin 0.3, Aspartate Amino Transf (AST/SGOT) 33, Alanine Aminotransferase (ALT/SGPT) 12, Alkaline Phosphatase 96, Total Creatine Kinase 186, C-Reactive Protein, Quantitative 5.8H, Pro-B-Type Natriuretic Peptide > 82477P, Total Protein 5.0L, Albumin 2.1L, Globulin 2.9, Albumin/Globulin Ratio 0.7L Height (Feet): 5 Height (Inches): 3.00 Weight (Pounds): 128 General Appearance: no apparent distress EENT: other - Trach to vent Cardiovascular: bradycardia Respiratory/Chest: decreased breath sounds Abdomen: distended Johnny Houston MD Mar 06, 2020 13:42
--- NOTE | 2020-03-06 14:40 | NUR ---
NURSE NOTES: Dr Willams visited pt and is aware about bradycardia 38-39, ordered to monitor pt. will continue to close monitoring.
--- NOTE | 2020-03-06 15:00 | NUR ---
NURSE NOTES: GT dressing changed and wound treatment done as order and pt tolerated well. will continue to monitor.
[2020-03-06 16:00] VITALS: BP 114/49
--- NOTE | 2020-03-06 18:38 | General Progress Note ---
Subjective Constitutional: Reports: no symptoms HEENT: Reports: no symptoms Cardiovascular: Reports: no symptoms Respiratory: Reports: no symptoms Gastrointestinal/Abdominal: Reports: no symptoms Genitourinary: Reports: no symptoms Neurologic/Psychiatric: Reports: no symptoms Endocrine: Reports: no symptoms Hematologic/Lymphatic: Reports: no symptoms Allergies: Coded Allergies: No Known Allergies (Unverified , 10/10/17) Objective Last 24 Hour Vital Signs Date Time Temp Pulse Resp B/P (MAP) Pulse Ox O2 Delivery O2 Flow Rate FiO2 03/06/20 16:00 Mechanical Ventilator 03/06/20 16:00 40 03/06/20 16:00 96.1 59 19 114/49 (70) 96 03/06/20 15:52 51 22 40 03/06/20 15:48 55 03/06/20 12:00 40 03/06/20 12:00 96.9 56 19 105/47 (66) 97 03/06/20 11:48 Mechanical Ventilator 03/06/20 11:31 57 03/06/20 11:08 55 20 40 03/06/20 08:00 Mechanical Ventilator 03/06/20 08:00 40 03/06/20 07:49 96.3 57 20 104/45 (64) 97 03/06/20 07:48 56 03/06/20 07:24 52 14 40 03/06/20 04:00 Mechanical Ventilator 03/06/20 04:00 40 03/06/20 04:00 98.7 56 17 102/36 (58) 97 03/06/20 03:44 42 03/06/20 00:00 56 03/06/20 00:00 96.5 55 19 120/70 (87) 100 03/06/20 00:00 Mechanical Ventilator 03/05/20 23:30 70 21 40 03/05/20 20:00 Mechanical Ventilator 03/05/20 20:00 40 03/05/20 20:00 96.5 51 20 91/51 (64) 100 03/05/20 20:00 60 03/05/20 19:05 54 21 40 Intake and Output 03/05/20 03/06/20 19:00 07:00 Intake Total 165 ml 1010 ml Output Total 100 ml 15 ml Balance 65 ml 995 ml Intake Free Water 60 ml IV Total 55 ml 1010 ml Tube Feeding 50 ml Output Urine Total 100 ml 15 ml # Bowel Movements 5 1 Laboratory Tests 03/05/20 20:00: Random Vancomycin Level 19.6 03/05/20 21:36: Arterial Blood pH 7.389, Arterial Blood Partial Pressure CO2 22.5*L, Arterial Blood Partial Pressure O2 114.5H, Arterial Blood HCO3 13.3*L, Arterial Blood Oxygen Saturation 97.4, Arterial Blood Base Excess -10.4*L, Rojas Test Positive 03/06/20 04:30: White Blood Count 34.7*H, Red Blood Count 2.75L, Hemoglobin 8.3L, Hematocrit 23.9L, Mean Corpuscular Volume 87, Mean Corpuscular Hemoglobin 30.3, Mean Corpuscular Hemoglobin Concent 34.9, Red Cell Distribution Width 13.1, Platelet Count 122L, Mean Platelet Volume 6.3L, Neutrophils (%) (Auto) , Lymphocytes (%) (Auto) , Monocytes (%) (Auto) , Eosinophils (%) (Auto) , Basophils (%) (Auto) , Differential Total Cells Counted 100, Neutrophils % (Manual) 86H, Lymphocytes % (Manual) 7L, Monocytes % (Manual) 6, Eosinophils % (Manual) 1, Basophils % (Manual) 0, Band Neutrophils 0, Nucleated Red Blood Cells 1, Platelet Estimate DecreasedL, Platelet Morphology Normal, Polychromasia 1+, Hypochromasia 1+, Sodium Level 142, Potassium Level 3.8, Chloride Level 107, Carbon Dioxide Level 15L, Anion Gap 20H, Blood Urea Nitrogen 171#H, Creatinine 3.5H, Estimat Glomerular Filtration Rate 14.0, Glucose Level 75, Uric Acid 9.6H, Calcium Level 7.3L, Phosphorus Level 7.0H, Magnesium Level 2.5H, Total Bilirubin 0.3, Aspartate Amino Transf (AST/SGOT) 33, Alanine Aminotransferase (ALT/SGPT) 12, Alkaline Phosphatase 96, Total Creatine Kinase 186, C-Reactive Protein, Quantitative 5.8H, Pro-B-Type Natriuretic Peptide > 54415C, Total Protein 5.0L, Albumin 2.1L, Globulin 2.9, Albumin/Globulin Ratio 0.7L Height (Feet): 5 Height (Inches): 3.00 Weight (Pounds): 128 General Appearance: WD/WN, alert EENT: normal ENT inspection Neck: supple Cardiovascular: regular rhythm, no gallop/murmur, no JVD, bradycardia Respiratory/Chest: decreased breath sounds, rhonchi - bilaterally Abdomen: normal bowel sounds, non tender, soft, no organomegaly, no mass Extremities: non-tender Neurologic: alert, responsive Assessment/Plan Status Narrative Patient appears more alert and more focused than yesterday is normal eye contact and has normal attention span blood pressure now is normal however she has borderline bradycardia and had developed bradycardia during the night with a pulse rate declined to 39 patient used to have a pacemaker but 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 [facility] 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 a new pacemaker was not inserted her laboratory tests indicate stability of H&H since yesterday we will BC increased from 30-34 and urine culture grew Proteus mirabilis and Providencia stuartii sensitive to IV case and tobramycin laboratory tests show the impact of 2 days dialysis on the patient her uric acid decline from 11-9 phosphorus decline from 9-7 is in today is 2.5 no bleeding is now visible from the trachea oral cavity or rectum the previous antibiotic meropenem and Vanco has been DC'd patient also started on micafungin because of suspicious of fungal infection during the GI bleed laboratory tests will be done in a.yordy. Lucas Canales MD, MD Mar 06, 2020 18:38
--- NOTE | 2020-03-06 19:05 | NUR ---
NURSE NOTES: Received report from ERASMO Lu. Pt in bed awake, with on going HD. In no apparent cardiac and respiratory distress noted. On trach to vent Shiley 7 ,AC 14, TV 500, Fio2 40%, Peep of 5 saturating at 95%. With Gtube in place, intact patent and flushed well, with residual of 10 ml brownish fluid. With R hand #22 running D5NS running @ 100cc/hr and L forearm #22. IV lines intact, patent and asymptomatic. With Perm-a-cath for hd on r upper chest. No bleeding noted. HOB elevated. Safety measures in place , Call light within reach. Bed rails are up and wheels are locked. Will continue plan of care
--- NOTE | 2020-03-06 19:16 | NUR ---
NURSE HAND-OFF REPORT: Important Events on Shift:HD started 1700, pt is stable HR 64 BP 120/55 now.D/C Norman cath, F/U b;adder scan daily. Patient Status: Diet: Pending Orders: Pending Results/Labs: Pending MD notification: Latest Vital Signs: Temperature 96.1 , Pulse 59 , B/P 114 /49 , Respiratory Rate 19 , O2 SAT 96 , Mechanical Ventilator, O2 Flow Rate . Vital Sign Comment: EKG Rhythm: Sinus Bradycardia Rhythm change?: N MD Notified?: Y -Dr Екатерина HATFIELD Response: No New Orders Received Latest Chavarria Fall Score: 50 Fall Risk: High Risk Safety Measures: Call light Within Reach, Bed Alarm Zone 1, Side Rails Side Rails x2, Bed position Low and Locked. Fall Precautions: Yellow Socks Report given to . Pt is awake and stable, no stress noted, endorsed plan of care, endorsed to F/U bladder scan daily.
[2020-03-06 20:21] VITALS: BP 115/48
[2020-03-06] MEDS: Dyna-Hex 2% Top Sol 2oz TOPIC SCH (20:29)
[2020-03-06] MEDS ORDERED: Tubing IV Blood Pump IV ONE (20:35)
[2020-03-06] MEDS ORDERED: D5NS 1000ml IV ONE (20:35)
[2020-03-06] MEDS ORDERED: NS 275ml ONE (20:35)
[2020-03-06] MEDS ORDERED: Tubing IV Secondary IV ONE (20:35)
--- NOTE | 2020-03-06 20:45 | NUR ---
NURSE NOTES: HD done with no output. Pt in stable condition. Tolerated well with hd.
--- NOTE | 2020-03-06 22:19 | NUR ---
NURSE NOTES: Turned and repositioned pt. Oral care provided.
--- NOTE | 2020-03-06 22:58 | Cardiology Progress Note ---
Subjective DATE OF SERVICE: Mar 06, 2020 Episodes of sinus bradycardia mostly during sleep; asymptomatic BP parameters stabilizing. Objective Last 24 Hour Vital Signs Date Time Temp Pulse Resp B/P (MAP) Pulse Ox O2 Delivery O2 Flow Rate FiO2 03/06/20 20: 96.8 62 24 115/48 (70) 100 03/06/20 20:00 40 03/06/20 20:00 Mechanical Ventilator 03/06/20 20:00 67 03/06/20 19:00 62 13 40 03/06/20 16:00 Mechanical Ventilator 03/06/20 16:00 40 03/06/20 16:00 96.1 59 19 114/49 (70) 96 03/06/20 15:52 51 22 40 03/06/20 15:48 55 03/06/20 12:00 40 03/06/20 12:00 96.9 56 19 105/47 (66) 97 03/06/20 11:48 Mechanical Ventilator 03/06/20 11:31 57 03/06/20 11:08 55 20 40 03/06/20 08:00 Mechanical Ventilator 03/06/20 08:00 40 03/06/20 07:49 96.3 57 20 104/45 (64) 97 03/06/20 07:48 56 03/06/20 07:24 52 14 40 03/06/20 04:00 Mechanical Ventilator 03/06/20 04:00 40 03/06/20 04:00 98.7 56 17 102/36 (58) 97 03/06/20 03:44 42 03/06/20 00:00 56 03/06/20 00:00 96.5 55 19 120/70 (87) 100 03/06/20 00:00 Mechanical Ventilator 03/05/20 23:30 70 21 40 HEENT: Thin Trach secretions RHYTHM: NSR, SB LUNGS: bilateral rhonchi - few, trach site clean CARDIAC: normal rate, regular rhythm, normal S1 and S2 ABDOMEN: normal bowel sounds, non tender, soft, G-Tube intact EXTREMITIES: normal range of motion, non-tender, normal inspection Laboratory Tests Test 03/06/20 04:30 White Blood Count 34.7 K/UL (4.8-10.8) *H Red Blood Count 2.75 M/UL (4.20-5.40) L Hemoglobin 8.3 G/DL (12.0-16.0) L Hematocrit 23.9 % (37.0-47.0) L Mean Corpuscular Volume 87 FL (80-99) Mean Corpuscular Hemoglobin 30.3 PG (27.0-31.0) Mean Corpuscular Hemoglobin Concent 34.9 G/DL (32.0-36.0) Red Cell Distribution Width 13.1 % (11.6-14.8) Platelet Count 122 K/UL (150-450) L Mean Platelet Volume 6.3 FL (6.5-10.1) L Neutrophils (%) (Auto) % (45.0-75.0) Lymphocytes (%) (Auto) % (20.0-45.0) Monocytes (%) (Auto) % (1.0-10.0) Eosinophils (%) (Auto) % (0.0-3.0) Basophils (%) (Auto) % (0.0-2.0) Differential Total Cells Counted 100 Neutrophils % (Manual) 86 % (45-75) H Lymphocytes % (Manual) 7 % (20-45) L Monocytes % (Manual) 6 % (1-10) Eosinophils % (Manual) 1 % (0-3) Basophils % (Manual) 0 % (0-2) Band Neutrophils 0 % (0-8) Nucleated Red Blood Cells 1 /100 WBC Platelet Estimate Decreased L Platelet Morphology Normal Polychromasia 1+ Hypochromasia 1+ Sodium Level 142 MMOL/L (136-145) Potassium Level 3.8 MMOL/L (3.5-5.1) Chloride Level 107 MMOL/L (98-107) Carbon Dioxide Level 15 MMOL/L (21-32) L Anion Gap 20 mmol/L (5-15) H Blood Urea Nitrogen 171 mg/dL (7-18) #H Creatinine 3.5 MG/DL (0.55-1.30) H Estimat Glomerular Filtration Rate 14.0 mL/min (>60) Glucose Level 75 MG/DL (74-106) Uric Acid 9.6 MG/DL (2.6-7.2) H Calcium Level 7.3 MG/DL (8.5-10.1) L Phosphorus Level 7.0 MG/DL (2.5-4.9) H Magnesium Level 2.5 MG/DL (1.8-2.4) H Total Bilirubin 0.3 MG/DL (0.2-1.0) Aspartate Amino Transf (AST/SGOT) 33 U/L (15-37) Alanine Aminotransferase (ALT/SGPT) 12 U/L (12-78) Alkaline Phosphatase 96 U/L (46-116) Total Creatine Kinase 186 U/L (26-308) C-Reactive Protein, Quantitative 5.8 mg/dL (0.00-0.90) H Pro-B-Type Natriuretic Peptide > 14168 pg/mL (0-125) H Total Protein 5.0 G/DL (6.4-8.2) L Albumin 2.1 G/DL (3.4-5.0) L Globulin 2.9 g/dL Albumin/Globulin Ratio 0.7 (1.0-2.7) L Assessment/Plan Assessment/Plan Sepsis with recovered shock Sinus node disease with bradycardia Hx pacemaker explant Ischemic cardiomyopathy - hx CABG Paroxysmal Atrial Fib Respiratory failure with trach secured entrance monitor Vent support Monitor and replace lytes Antimicrobials DVT prophyl Avoiding all meds with negative chronotropic potential No urgent indication for pacemaker Deni Willams MD Mar 06, 2020 22:58
--- NOTE | 2020-03-06 23:59 | Consultation ---
DATE OF CONSULTATION: 03/05/2020 CARDIOLOGY CONSULTATION CONSULTING PHYSICIAN: Deni Willams M.D. REASON FOR CONSULTATION: Bradycardia in the setting of ischemic heart disease. HISTORY OF PRESENT ILLNESS: This is a 49-year-old female with tracheostomy. She has a history of ischemic heart disease and prior CABG. She also had a pacemaker at some point that was explanted last year. She was admitted to the hospital on 03/02/2020 with sepsis, anemia, and shock. She has positive blood cultures for Gram-positive cocci. She has had bradycardic episodes prompting this consultation. She has had previous hospitalizations here with similar episodes, they have all been asymptomatic and usually during sleep. PAST MEDICAL HISTORY: Coronary artery disease, CABG, dysphagia with gastrostomy tube, respiratory failure with tracheostomy, sinus node disease with bradycardia, pacemaker explantation, chronic psychosis. ALLERGIES: None. MEDICATIONS: Reviewed. FAMILY HISTORY: Not known. SOCIAL HISTORY: There is a prior history of smoking 20 pack years. No alcohol or substance abuse. She has a chronic narcotic analgesic dependence. PHYSICAL EXAMINATION: VITAL SIGNS: Blood pressure 94/40, pulse 58, respirations 20. NECK: Thin trach secretions. LUNGS: Bilateral breath sounds with few rhonchi. CARDIAC: Regular rhythm. Slow rate. Normal S1, S2 with no murmur. Median sternotomy scar. ABDOMEN: Soft. No edema. G-tube intact. LABORATORY DATA: Labs noted. IMPRESSION: 1. Sinus node disease with asymptomatic bradycardia. 2. Prior history of pacemaker. 3. Ischemic cardiomyopathy with stable angina. 4. Chronic respiratory failure with trach. 5. Dysphagia with G-tube. 6. Bacteremia with risk for endocarditis. 7. Sepsis with recovering shock. PLAN: 1. Antimicrobials. 2. Follow up blood cultures. 3. Cardiac monitoring. 4. No indication for urgent pacemaker. 5. Atropine at bedside. 6. Anti-platelet and anti-lipid therapy. 7. Adjust ventilator settings to optimize acid-base parameters. 8. We will follow closely with you during this hospital course. Deni Willams M.D. : DEANDRA JOB#: [id number] CC:
[2020-03-07] VITALS: BP 111/54
--- NOTE | 2020-03-07 02:10 | NUR ---
NURSE NOTES: Bed bath given, oral care provided. Changed gown and linens. Will continue to monitor and plan of care.No bm noted
[2020-03-07] MEDS: D5NS 1,000 ML IV SCH ×2 (03:48→13:36)
[2020-03-07 04:00] VITALS: BP 118/49
[2020-03-07 04:43] LABS: CALCIUM 7.3 MG/DL (8.5-10.1); CREATININE 2.5 MG/DL (0.55-1.30); POTASSIUM 3.2 MMOL/L (3.5-5.1)
[2020-03-07 05:10] LABS: HEMATOCRIT 22.2 % (37.0-47.0); MEAN CORPUSCULAR VOLUME 85 FL (80-99); PLATELET COUNT 123 K/UL (150-450); RED BLOOD COUNT 2.63 M/UL (4.20-5.40); RED CELL DISTRIBUTION WIDTH 13.3 % (11.6-14.8)
[2020-03-07 05:11] LABS: WHITE BLOOD COUNT 32.6 K/UL (4.8-10.8)
[2020-03-07] MEDS: Metoclopramide 10mg/2ml Inj IVP SCH ×3 (05:17→21:29)
--- NOTE | 2020-03-07 07:04 | NUR ---
NURSE NOTES: Notified Dr lewis regarding the wbc today of 32.6 and blood cx came back seen with gram positive cocci and gram neg rods. Awaiting response. Will endorse am shift.
--- NOTE | 2020-03-07 07:30 | NUR ---
received pt. on vent tolerate well no resp distress ,vs stable ,eyes open does not follow comandes , , suction done moderate amount of secreation came out
--- NOTE | 2020-03-07 07:37 | NUR ---
NURSE HAND-OFF REPORT: Important Events on Shift: Notified Dr Dong regarding critical result of WBC and blood cx. Awaiting response. ENodrsed to Annabel. Informed kennedy also to give the avycaz @0800 per pharmacy instruction. Patient Status: Stable Diet: NPO Pending Orders: Pending Results/Labs: Pending MD notification: Latest Vital Signs: Temperature 96.8 , Pulse 55 , B/P 118 /49 , Respiratory Rate 15 , O2 SAT 95 , Mechanical Ventilator, O2 Flow Rate . Vital Sign Comment: Stable EKG Rhythm: Sinus Bradycardia Rhythm change?: Y MD Notified?: MD Response: Latest Chavarria Fall Score: 50 Fall Risk: High Risk Safety Measures: Call light Within Reach, Bed Alarm Zone 1, Side Rails Side Rails x2, Bed position Low and Locked. Fall Precautions: Yellow Socks Report given to ERASMO Robles.
[2020-03-07 08:00] VITALS: BP 126/55
[2020-03-07] MEDS ORDERED: Vancomycin 500mg/D5W 110ml IVPB SCH ×2 (08:00)
[2020-03-07] MEDS: AVIBACTAM IV SCH ×2 (08:15→21:53)
[2020-03-07] MEDS: D5W IV SCH ×2 (08:15→21:53)
[2020-03-07] MEDS: CEFTAZIDIME IV SCH ×2 (08:15→21:53)
[2020-03-07] MEDS: Midodrine 10mg tab GT SCH ×3 (08:22→17:37)
[2020-03-07] MEDS: Pantoprazole Inj IVP SCH ×2 (08:22→21:28)
[2020-03-07] MEDS: Aspirin Baby 81mg GT SCH (08:22)
--- NOTE | 2020-03-07 09:16 | Pulmonology Progress Note ---
Subjective ROS Limited/Unobtainable: Yes Interval Events: none major reported per nursing HEENT: Repors: no symptoms Respiratory: Reports: no symptoms Cardiovascular: Reports: no symptoms Gastrointestinal/Abdominal: Reports: diarrhea Allergies: Coded Allergies: No Known Allergies (Unverified , 10/10/17) All Systems: reviewed and negative except above Objective Last 24 Hour Vital Signs Date Time Temp Pulse Resp B/P (MAP) Pulse Ox O2 Delivery O2 Flow Rate FiO2 03/07/20 04:00 96.8 53 15 118/49 (72) 95 03/07/20 04:00 Mechanical Ventilator 03/07/20 04:00 55 03/07/20 04:00 40 03/07/20 03:10 60 19 40 03/07/20 00:00 Mechanical Ventilator 03/07/20 00:00 97.2 55 24 111/54 (73) 100 03/06/20 23:52 56 03/06/20 23:00 58 16 40 03/06/20 20:21 96.8 62 24 115/48 (70) 100 03/06/20 20:00 40 03/06/20 20:00 Mechanical Ventilator 03/06/20 20:00 67 03/06/20 19:00 62 13 40 03/06/20 16:00 Mechanical Ventilator 03/06/20 16:00 40 03/06/20 16:00 96.1 59 19 114/49 (70) 96 03/06/20 15:52 51 22 40 03/06/20 15:48 55 03/06/20 12:00 40 03/06/20 12:00 96.9 56 19 105/47 (66) 97 03/06/20 11:48 Mechanical Ventilator 03/06/20 11:31 57 03/06/20 11:08 55 20 40 Intake and Output 03/06/20 03/07/20 19:00 07:00 Intake Total 1375 ml 1110 ml Balance 1375 ml 1110 ml IV Total 1375 ml 1110 ml # Voids 1 General Appearance: no acute distress HEENT: atraumatic Respiratory: lungs clear Cardiovascular: regular rhythm, bradycardia Microbiology Date/Time Source Procedure Growth Status 03/06/20 09:55 Blood Blood Culture - Preliminary Resulted 03/06/20 09:45 Blood Blood Culture - Preliminary Resulted Laboratory Tests 03/07/20 03:20: White Blood Count 32.6*H, Red Blood Count 2.63L, Hemoglobin 8.0L, Hematocrit 22.2L, Mean Corpuscular Volume 85, Mean Corpuscular Hemoglobin 30.3, Mean Corpuscular Hemoglobin Concent 35.9, Red Cell Distribution Width 13.3, Platelet Count 123L, Mean Platelet Volume 6.0L, Neutrophils (%) (Auto) , Lymphocytes (%) (Auto) , Monocytes (%) (Auto) , Eosinophils (%) (Auto) , Basophils (%) (Auto) , Differential Total Cells Counted 100, Neutrophils % (Manual) 94H, Lymphocytes % (Manual) 5L, Monocytes % (Manual) 1, Eosinophils % (Manual) 0, Basophils % (Manual) 0, Band Neutrophils 0, Platelet Estimate DecreasedL, Platelet Morphology Normal, Polychromasia 1+, Hypochromasia 1+, Sodium Level 142, P otassium Level 3.2L, Chloride Level 106, Carbon Dioxide Level 23, Anion Gap 13, Blood Urea Nitrogen 101H, Creatinine 2.5H, Estimat Glomerular Filtration Rate 20.6, Glucose Level 78, Calcium Level 7.3L, Random Vancomycin Level 18.9 Current Medications Medications (Trade) Dose Ordered Sig/Penny Route PRN Reason Start Time Stop Time Status Last Admin Dose Admin Acetaminophen (Tylenol) 650 mg Q6H PRN GT Mild Pain (Pain Scale 1-3) 03/02/20 22:30 04/01/20 22:29 Acetaminophen (Tylenol) 650 mg Q6H PRN GT Temp >100.5 03/03/20 03:00 04/01/20 22:29 Aspirin (ASA) 81 mg DAILY GT 03/07/20 09:00 04/21/20 08:59 03/07/20 08:22 Ceftazidime/ Avibactam 0.94 gm/ Dextrose 110 ml @ 110 mls/hr Q12HR IV 03/06/20 13:00 03/13/20 12:59 03/07/20 08:15 Chlorhexidine Gluconate (Ling-Hex 2%) 1 applic DAILY@2000 TOPIC 03/03/20 20:00 06/01/20 19:59 03/06/20 20:29 Dextrose/Sodium Chloride 1,000 ml @ 100 mls/hr Q10H IV 03/05/20 21:30 04/04/20 21:29 03/07/20 03:48 Hydralazine HCl (Apresoline) 25 mg Q6H PRN GT For High Blood Pressure 03/02/20 22:00 05/31/20 21:59 Loperamide HCl (Imodium) 2 mg Q6H PRN GT Diarrhea 03/06/20 12:45 04/05/20 12:44 03/06/20 13:01 Metoclopramide HCl (Reglan) 5 mg Q8HR IVP 03/04/20 11:45 04/03/20 11:44 03/07/20 05:17 Micafungin Sodium 100 mg/Sodium Chloride 110 ml @ 110 mls/hr Q24H IVPB 03/06/20 11:00 03/13/20 10:59 03/06/20 10:18 Midodrine (Pro-Amatine) 10 mg THREE TIMES A DAY GT 03/04/20 13:00 06/01/20 12:59 03/07/20 08:22 Pantoprazole (Protonix) 40 mg EVERY 12 HOURS IVP 03/04/20 21:00 04/02/20 20:59 03/07/20 08:22 Polyethylene Glycol (Miralax) 17 gm BEDTIME PRN GT Constipation 03/02/20 22:00 04/01/20 21:59 Pravastatin Sodium (Pravachol) 20 mg BEDTIME GT 03/07/20 21:00 04/06/20 20:59 Sodium Hypochlorite (Dakin's Quarter Strength) 1 applic DAILY TOPIC 03/04/20 09:00 04/03/20 08:59 03/06/20 09:09 Tobramycin Protocol (Tobramycin pharmacy to dose) 1 ea DAILY PRN MISC Per rx protocol 03/06/20 09:15 04/05/20 09:14 Tobramycin Sulfate 80 mg/ Sodium Chloride 55 ml @ 110 mls/hr POSTHD IV 03/06/20 12:00 03/13/20 11:59 Vancomycin HCl (Vanco pharmacy to dose) 1 ea DAILY PRN MISC Per rx protocol 03/03/20 09:15 04/02/20 09:14 Vancomycin HCl 500 mg/Dextrose 110 ml @ 110 mls/hr ONCE IVPB 03/07/20 08:00 03/07/20 10:00 03/07/20 08:16 Assessment/Plan Assessment/Plan 1. Chronic respiratory failure. 2. Mechanical ventilation. - current setting at AC 14, Vt 500, FiO2 40%, PEEP 5 saturating at 92-93% - continue current setting - suction secretions as needed 3. Chronic tracheostomy. 4. Chronic G-tube. - now NPO 5. Anemia. - s/p transfusion - stool OB positive 6. Renal failure. 7. Leukocytosis and sepsis. 8. Sepsis UTI 9. Gram positive cocci bacteremia 10. COVID-19 negative 11. Diarrhea - C. diff neg Eljiah Stephen MD Mar 07, 2020 09:16
[2020-03-07] MEDS: Dakin's 0.125% Soln (Quarter Strength) 16oz TOPIC SCH (11:16)
[2020-03-07] MEDS: Micafungin 100 MG in NS 110 ML IVPB SCH (11:16)
[2020-03-07 12:00] VITALS: BP 93/49
--- NOTE | 2020-03-07 12:21 | General Progress Note ---
Subjective ROS Limited/Unobtainable: No Allergies: Coded Allergies: No Known Allergies (Unverified , 10/10/17) Objective Last 24 Hour Vital Signs Date Time Temp Pulse Resp B/P (MAP) Pulse Ox O2 Delivery O2 Flow Rate FiO2 03/07/20 08:00 97.7 53 15 126/55 (78) 95 03/07/20 08:00 40 03/07/20 08:00 59 03/07/20 04:00 96.8 53 15 118/49 (72) 95 03/07/20 04:00 Mechanical Ventilator 03/07/20 04:00 55 03/07/20 04:00 40 03/07/20 03:10 60 19 40 03/07/20 00:00 Mechanical Ventilator 03/07/20 00:00 97.2 55 24 111/54 (73) 100 03/06/20 23:52 56 03/06/20 23:00 58 16 40 03/06/20 20:21 96.8 62 24 115/48 (70) 100 03/06/20 20:00 40 03/06/20 20:00 Mechanical Ventilator 03/06/20 20:00 67 03/06/20 19:00 62 13 40 03/06/20 16:00 Mechanical Ventilator 03/06/20 16:00 40 03/06/20 16:00 96.1 59 19 114/49 (70) 96 03/06/20 15:52 51 22 40 03/06/20 15:48 55 Intake and Output 03/06/20 03/07/20 19:00 07:00 Intake Total 1375 ml 1110 ml Balance 1375 ml 1110 ml IV Total 1375 ml 1110 ml # Voids 1 Laboratory Tests 03/07/20 03:20: White Blood Count 32.6*H, Red Blood Count 2.63L, Hemoglobin 8.0L, Hematocrit 22.2L, Mean Corpuscular Volume 85, Mean Corpuscular Hemoglobin 30.3, Mean Corpuscular Hemoglobin Concent 35.9, Red Cell Distribution Width 13.3, Platelet Count 123L, Mean Platelet Volume 6.0L, Neutrophils (%) (Auto) , Lymphocytes (%) (Auto) , Monocytes (%) (Auto) , Eosinophils (%) (Auto) , Basophils (%) (Auto) , Differential Total Cells Counted 100, Neutrophils % (Manual) 94H, Lymphocytes % (Manual) 5L, Monocytes % (Manual) 1, Eosinophils % (Manual) 0, Basophils % (Manual) 0, Band Neutrophils 0, Platelet Estimate DecreasedL, Platelet Morphology Normal, Polychromasia 1+, Hypochromasia 1+, Sodium Level 142, Potassium Level 3.2L, Chloride Level 106, Carbon Dioxide Level 23, Anion Gap 13, Blood Urea Nitrogen 101H, Creatinine 2.5H, Estimat Glomerular Filtration Rate 20.6, Glucose Level 78, Calcium Level 7.3L, Random Vancomycin Level 18.9 Height (Feet): 5 Height (Inches): 3.00 Weight (Pounds): 128 General Appearance: no apparent distress EENT: normal ENT inspection Neck: supple Cardiovascular: normal rate Respiratory/Chest: decreased breath sounds Abdomen: normal bowel sounds, non tender, soft Extremities: non-tender Assessment/Plan Problem List: (1) Hx of CABG ICD Codes: Z95.1 - Presence of aortocoronary bypass graft SNOMED: 887948139, 978179408 (2) History of tracheostomy ICD Codes: Z98.890 - Other specified postprocedural states SNOMED: 210209452, 999847801 (3) PEG (percutaneous endoscopic gastrostomy) status ICD Codes: Z93.1 - Gastrostomy status SNOMED: 685830522, 152625915 (4) Renal failure ICD Codes: N19 - Unspecified kidney failure SNOMED: 37147400, 422286572 (5) Severe anemia ICD Codes: D64.9 - Anemia, unspecified SNOMED: 755905828 Assessment/Plan: s/p EGD gastric ulcer on ppi npo fu H&H TF will resume Inder Mccauley MD Mar 07, 2020 12:21
[2020-03-07] MEDS ORDERED: TOBRAMYCIN IV ONE (14:00)
[2020-03-07] MEDS ORDERED: NS IV ONE (14:00)
--- NOTE | 2020-03-07 15:35 | Nephrology Progress Note ---
Assessment/Plan Problem List: (1) Renal failure (ARF), acute on chronic (2) Anemia (3) Hyponatremia (4) Respiratory failure Assessment (1) JAVIER (acute kidney injury) (2) Renal failure (ARF), acute on chronic (3) Feeding by G-tube (4) Tracheostomy in place (5) Electrolyte imbalance, hyponatremia (6) Anemia, severe (7) Respiratory failure, acute and chronic (8) history of elevated lipase, pancreatitis (9) Elevated troponin I (10) Sepsis Plan March 07: Labs reviewed. Dialyzed March 05 and March 06. Continue to monitor renal parameters and hemoglobin. Abnormal electrolytes addressed. IV fluids stopped. Per orders. March 06: Labs reviewed. Dialyzed yesterday. Will reorder dialysis for today. Continue to monitor renal parameters. Hemoglobin 8.4. Patient full code. March 05: Labs reviewed. Patient did not receive dialysis until this morning. Proceed with dialysis. Continue to monitor renal parameters and hemoglobin and hematocrit. March 04: Labs reviewed. Hemoglobin lower. Patient actively bleeding. Was not dialyzed yesterday. Due for GI endoscopy. Continue fluid challenge. Transfusion as needed. Dialysis today. March 03: Labs reviewed. Dialysis ordered. Blood pressure medication all discontinued due to hypotensive state. Albumin bolus given. Continue to monitor renal parameters. Medication list reviewed. Midodrin for low blood pressure ordered Subjective ROS Limited/Unobtainable: Yes Objective Objective Last 24 Hour Vital Signs Date Time Temp Pulse Resp B/P (MAP) Pulse Ox O2 Delivery O2 Flow Rate FiO2 03/07/20 08:00 97.7 53 15 126/55 (78) 95 03/07/20 08:00 40 03/07/20 08:00 59 03/07/20 04:00 96.8 53 15 118/49 (72) 95 03/07/20 04:00 Mechanical Ventilator 03/07/20 04:00 55 03/07/20 04:00 40 03/07/20 03:10 60 19 40 03/07/20 00:00 Mechanical Ventilator 03/07/20 00:00 97.2 55 24 111/54 (73) 100 03/06/20 23:52 56 03/06/20 23:00 58 16 40 03/06/20 20:21 96.8 62 24 115/48 (70) 100 03/06/20 20:00 40 03/06/20 20:00 Mechanical Ventilator 03/06/20 20:00 67 03/06/20 19:00 62 13 40 03/06/20 16:00 Mechanical Ventilator 03/06/20 16:00 40 03/06/20 16:00 96.1 59 19 114/49 (70) 96 03/06/20 15:52 51 22 40 03/06/20 15:48 55 Intake and Output 03/06/20 03/07/20 19:00 07:00 Intake Total 1375 ml 1110 ml Balance 1375 ml 1110 ml IV Total 1375 ml 1110 ml # Voids 1 Current Medications Medications (Trade) Dose Ordered Sig/Penny Route PRN Reason Start Time Stop Time Status Last Admin Dose Admin Acetaminophen (Tylenol) 650 mg Q6H PRN GT Mild Pain (Pain Scale 1-3) 03/02/20 22:30 04/01/20 22:29 Acetaminophen (Tylenol) 650 mg Q6H PRN GT Temp >100.5 03/03/20 03:00 04/01/20 22:29 Albumin Human 100 ml @ 100 mls/hr ONCE ONCE IV 03/07/20 15:45 03/07/20 16:44 UNV Aspirin (ASA) 81 mg DAILY GT 03/07/20 09:00 04/21/20 08:59 03/07/20 08:22 Ceftazidime/ Avibactam 0.94 gm/ Dextrose 110 ml @ 110 mls/hr Q12HR IV 03/06/20 13:00 03/13/20 12:59 03/07/20 08:15 Chlorhexidine Gluconate (Ling-Hex 2%) 1 applic DAILY@2000 TOPIC 03/03/20 20:00 06/01/20 19:59 03/06/20 20:29 Hydralazine HCl (Apresoline) 25 mg Q6H PRN GT For High Blood Pressure 03/02/20 22:00 05/31/20 21:59 Loperamide HCl (Imodium) 2 mg Q6H PRN GT Diarrhea 03/06/20 12:45 04/05/20 12:44 03/06/20 13:01 Metoclopramide HCl (Reglan) 5 mg Q8HR IVP 03/04/20 11:45 04/03/20 11:44 03/07/20 13:38 Micafungin Sodium 100 mg/Sodium Chloride 110 ml @ 110 mls/hr Q24H IVPB 03/06/20 11:00 03/13/20 10:59 03/07/20 11:16 Midodrine (Pro-Amatine) 10 mg THREE TIMES A DAY GT 03/04/20 13:00 06/01/20 12:59 03/07/20 13:36 Pantoprazole (Protonix) 40 mg EVERY 12 HOURS IVP 03/04/20 21:00 04/02/20 20:59 03/07/20 08:22 Polyethylene Glycol (Miralax) 17 gm BEDTIME PRN GT Constipation 03/02/20 22:00 04/01/20 21:59 Pravastatin Sodium (Pravachol) 20 mg BEDTIME GT 03/07/20 21:00 04/06/20 20:59 Sodium Hypochlorite (Dakin's Quarter Strength) 1 applic DAILY TOPIC 03/04/20 09:00 04/03/20 08:59 03/07/20 11:16 Tobramycin Protocol (Tobramycin pharmacy to dose) 1 ea DAILY PRN MISC Per rx protocol 03/06/20 09:15 04/05/20 09:14 Tobramycin Sulfate 80 mg/ Sodium Chloride 55 ml @ 110 mls/hr POSTHD IV 03/06/20 12:00 03/13/20 11:59 Vancomycin HCl (Vanco pharmacy to dose) 1 ea DAILY PRN MISC Per rx protocol 03/03/20 09:15 04/02/20 09:14 Laboratory Tests 03/07/20 03:20: White Blood Count 32.6*H, Red Blood Count 2.63L, Hemoglobin 8.0L, Hematocrit 22.2L, Mean Corpuscular Volume 85, Mean Corpuscular Hemoglobin 30.3, Mean Corpus cular Hemoglobin Concent 35.9, Red Cell Distribution Width 13.3, Platelet Count 123L, Mean Platelet Volume 6.0L, Neutrophils (%) (Auto) , Lymphocytes (%) (Auto) , Monocytes (%) (Auto) , Eosinophils (%) (Auto) , Basophils (%) (Auto) , Differential Total Cells Counted 100, Neutrophils % (Manual) 94H, Lymphocytes % (Manual) 5L, Monocytes % (Manual) 1, Eosinophils % (Manual) 0, Basophils % (Manual) 0, Band Neutrophils 0, Platelet Estimate DecreasedL, Platelet Morphology Normal, Polychromasia 1+, Hypochromasia 1+, Sodium Level 142, Potassium Level 3.2L, Chloride Level 106, Carbon Dioxide Level 23, Anion Gap 13, Blood Urea Nitrogen 101H, Creatinine 2.5H, Estimat Glomerular Filtration Rate 20.6, Glucose Level 78, Calcium Level 7.3L, Random Vancomycin Level 18.9 Height (Feet): 5 Height (Inches): 3.00 Weight (Pounds): 128 General Appearance: no apparent distress EENT: other - Trach to vent Cardiovascular: bradycardia Respiratory/Chest: decreased breath sounds Abdomen: distended Johnny Houtson MD Mar 07, 2020 15:35
[2020-03-07] MEDS ORDERED: Tubing IV Secondary IV ONE (15:58)
[2020-03-07] MEDS ORDERED: NS 275ml ONE (15:58)
[2020-03-07 16:00] VITALS: BP 111/47
--- NOTE | 2020-03-07 16:09 | NUR ---
CASE MANAGEMENT:REVIEW 03/07/20 SI: SEPSIS. AC/CHR RENAL FAILURE(WORSENING RENAL FXN) TRACH/VENT/GT 97.7 59 15 126/55 95% ON VENT SUPPORT W/40% FIO2 WBC+32.6 H/H-8.0/22.2 PLT-123 PLT-122 BUN+101 CR+2.5 IS: IV CEFTAZIDIME Q12 IV TOBRAMYCIN IV POST HD IV MICAFUNGIN Q24 IV ALBUMIN X1 IV PROTONIX Q12 IV REGLAN Q8HRS : STEP DOWN UNIT DCP: FROM [facility]
--- NOTE | 2020-03-07 16:49 | Surgery Progress Note ---
Surgery Progress Note Subjective Symptoms: worse Objective Last 24 Hour Vital Signs Date Time Temp Pulse Resp B/P (MAP) Pulse Ox O2 Delivery O2 Flow Rate FiO2 03/07/20 08:00 97.7 53 15 126/55 (78) 95 03/07/20 08:00 40 03/07/20 08:00 59 03/07/20 04:00 96.8 53 15 118/49 (72) 95 03/07/20 04:00 Mechanical Ventilator 03/07/20 04:00 55 03/07/20 04:00 40 03/07/20 03:10 60 19 40 03/07/20 00:00 Mechanical Ventilator 03/07/20 00:00 97.2 55 24 111/54 (73) 100 03/06/20 23:52 56 03/06/20 23:00 58 16 40 03/06/20 20:21 96.8 62 24 115/48 (70) 100 03/06/20 20:00 40 03/06/20 20:00 Mechanical Ventilator 03/06/20 20:00 67 03/06/20 19:00 62 13 40 I&O Intake and Output 03/06/20 03/07/20 19:00 07:00 Intake Total 1375 ml 1110 ml Balance 1375 ml 1110 ml IV Total 1375 ml 1110 ml # Voids 1 Dressing: saturated Cardiovascular: RSR Respiratory: decreased breath sounds Abdomen: non-tender, present bowel sounds, non-distended Extremities: edema, no tenderness, no cyanosis Laboratory Tests Test 03/07/20 03:20 White Blood Count 32.6 K/UL (4.8-10.8) *H Red Blood Count 2.63 M/UL (4.20-5.40) L Hemoglobin 8.0 G/DL (12.0-16.0) L Hematocrit 22.2 % (37.0-47.0) L Mean Corpuscular Volume 85 FL (80-99) Mean Corpuscular Hemoglobin 30.3 PG (27.0-31.0) Mean Corpuscular Hemoglobin Concent 35.9 G/DL (32.0-36.0) Red Cell Distribution Width 13.3 % (11.6-14.8) Platelet Count 123 K/UL (150-450) L Mean Platelet Volume 6.0 FL (6.5-10.1) L Neutrophils (%) (Auto) % (45.0-75.0) Lymphocytes (%) (Auto) % (20.0-45.0) Monocytes (%) (Auto) % (1.0-10.0) Eosinophils (%) (Auto) % (0.0-3.0) Basophils (%) (Auto) % (0.0-2.0) Differential Total Cells Counted 100 Neutrophils % (Manual) 94 % (45-75) H Lymphocytes % (Manual) 5 % (20-45) L Monocytes % (Manual) 1 % (1-10) Eosinophils % (Manual) 0 % (0-3) Basophils % (Manual) 0 % (0-2) Band Neutrophils 0 % (0-8) Platelet Estimate Decreased L Platelet Morphology Normal Polychromasia 1+ Hypochromasia 1+ Sodium Level 142 MMOL/L (136-145) Potassium Level 3.2 MMOL/L (3.5-5.1) L Chloride Level 106 MMOL/L (98-107) Carbon Dioxide Level 23 MMOL/L (21-32) Anion Gap 13 mmol/L (5-15) Blood Urea Nitrogen 101 mg/dL (7-18) H Creatinine 2.5 MG/DL (0.55-1.30) H Estimat Glomerular Filtration Rate 20.6 mL/min (>60) Glucose Level 78 MG/DL (74-106) Calcium Level 7.3 MG/DL (8.5-10.1) L Random Vancomycin Level 18.9 ug/mL Plan Problems: (1) Pancreatitis Assessment & Plan: (1) Pancreatitis Assessment & Plan: 49-year-old female well-known to me presents with pancreatitis lipase elevated greater than 2000 history of this in the past. Tolerating tube feeds. Okay for diet. Continue to trend labs. Abdominal examination otherwise benign. Will obtain imaging as necessary. Currently leukocytosis significant anemia. Heme input appreciated. Thank you will follow with recommendations Assessment & Plan: Leukocytosis anemia abnormal labs elevated LFTs elevated lipase acute pancreatitis along with potential pneumonia UTI Covid negative C. difficile negative. Continue antibiotics. Trend labs. DAILY ESTIMATED NEEDS: Needs based on Critical care, wound, renal dysfunction 59.5 kg 27-22 kcals/kg [id number] total kcals W/ HD (1.5-2.0) g protein/kg 89-119 g total protein Fluid per MD NUTRITION DIAGNOSIS: * Swallowing difficulty R/T dysphagia, respiratory status as evidenced by vent dep via trach, GT Dep. * Increase kcal and pro needs r/t wound healing, renal dysfunction as evidenced by h/o stage 4 sacral wound, and HD. CURRENT TF: Nepro @ 45ml/hr x 24 hrs ENTERAL NUTRITION RECOMMENDATIONS: Nepro @ 45ml/hr x 24 hrs + Prosource 1pkt QD to provide 1080ml, 1944 kcal, 87g + 11g pro, 785ml free H2O * Advance as tolerated to goal. * Add Prosource 1pkt QD to better meet increased protein needs (additional 11g prot) * Water flush per MD/ HOB over 30 degrees ADDITIONAL RECOMMENDATIONS: * Maintain calibrated bed scale * Monitor for HD continuity * F/up w/ WC eval-> add FRANKLIN in 4oz H2O BID via GT * On lactulose, monitor for BM * Monitor BG (hypoglycemic this morning), rec bed side BG checks . Assessment & Plan: Pt presented on admission with Full Thickness Sacral Pressure Injury (L)11cm x (W)13.5cm x (D)1.6cm, Undermining clockwise 7-3 by 3cm @7o'clock. Base of wound is 90% necrotic,10% mixed pink and slough.Epibole and maceration noted along borders. Periwound ,along borders is indurated with darker skin tone . No elevation in skin temp ,or erythema noted. Wound is malodorous. Small amt brown exudate noted. MASD noted to perineum, Bilat ischial tuberosities and medial aspects of both up per thighs. Affected areas are erythematous and denuded. R Heel is boggy with non-blanchable erythema. L Heel is boggy with non-blanchable erythema. Tx.Plan:Cleanse Sacral Wound with Dakin's 0.125% Tawanna. Loosely Pack Wound with Dakin's moistened Kerlix. Apply Moisture Barrier Paste periwound. Cover with Optifoam drsg Daily and prn. Apply Moisture Barrier Paste to Perineum and Medial aspects of both upper thighs with each Incontinence care. Apply Cavilon Skin Barrier to both heels. Cover each Heel with Optifoam drsg. Change every 7 days and prn. Reposition at least every 2hours or as tolerated. Off-load heels with Pillow. APM/JENNIFER Mattress overlay (2) Elevated troponin (3) Anemia (4) Renal failure (5) ARF (acute renal failure) (6) Pacemaker (7) Sepsis (8) Hyponatremia (9) Chronic respiratory failure (10) Dehydration (11) Hypokalemia (12) Acidosis (13) Ascites (14) Bacteremia (15) Depression (16) Hypernatremia (17) Hyponatremia (18) Pleural effusion (19) Proteinuria (20) Respiratory failure (21) Schizophrenia (22) Electrolyte imbalance (23) Hypoxia (24) UTI (urinary tract infection) (25) Pneumonia (26) ACS (acute coronary syndrome) (27) NSTEMI (non-ST elevated myocardial infarction) (28) Aortic dissection, thoracic (29) Tracheostomy in place (30) Respiratory failure, acute and chronic (31) JAVIER (acute kidney injury) (32) JAVIER (acute kidney injury) (33) Abrasion of lip, initial encounter (34) COPD with exacerbation (35) Elevated alkaline phosphatase level (36) Renal failure (ARF), acute on chronic (37) Acute encephalopathy (38) HCAP (healthcare-associated pneumonia) (39) Elevated lipase (40) Sacral decubitus ulcer, stage IV (41) GT CLOGGED (42) Ventilator dependence (43) Severe anemia (44) Feeding by G-tube Lane Saavedra Mar 07, 2020 16:49
--- NOTE | 2020-03-07 18:52 | General Progress Note ---
Subjective Constitutional: Reports: no symptoms HEENT: Reports: no symptoms Cardiovascular: Reports: no symptoms Respiratory: Reports: no symptoms Gastrointestinal/Abdominal: Reports: no symptoms Genitourinary: Reports: no symptoms Neurologic/Psychiatric: Reports: no symptoms Endocrine: Reports: no symptoms Hematologic/Lymphatic: Reports: no symptoms Allergies: Coded Allergies: No Known Allergies (Unverified , 10/10/17) Objective Last 24 Hour Vital Signs Date Time Temp Pulse Resp B/P (MAP) Pulse Ox O2 Delivery O2 Flow Rate FiO2 03/07/20 15:40 49 14 40 03/07/20 11:50 51 16 40 03/07/20 08:00 97.7 53 15 126/55 (78) 95 03/07/20 08:00 40 03/07/20 08:00 59 03/07/20 07:40 54 20 40 03/07/20 04:00 96.8 53 15 118/49 (72) 95 03/07/20 04:00 Mechanical Ventilator 03/07/20 04:00 55 03/07/20 04:00 40 03/07/20 03:10 60 19 40 03/07/20 00:00 Mechanical Ventilator 03/07/20 00:00 97.2 55 24 111/54 (73) 100 03/06/20 23:52 56 03/06/20 23:00 58 16 40 03/06/20 20:21 96.8 62 24 115/48 (70) 100 03/06/20 20:00 40 03/06/20 20:00 Mechanical Ventilator 03/06/20 20:00 67 03/06/20 19:00 62 13 40 Intake and Output 03/06/20 03/07/20 19:00 07:00 Intake Total 1375 ml 1110 ml Balance 1375 ml 1110 ml IV Total 1375 ml 1110 ml # Voids 1 Laboratory Tests 03/07/20 03:20: White Blood Count 32.6*H, Red Blood Count 2.63L, Hemoglobin 8.0L, Hematocrit 22.2L, Mean Corpuscular Volume 85, Mean Corpuscular Hemoglobin 30.3, Mean Corpuscular Hemoglobin Concent 35.9, Red Cell Distribution Width 13.3, Platelet Count 123L, Mean Platelet Volume 6.0L, Neutrophils (%) (Auto) , Lymphocytes (%) (Auto) , Monocytes (%) (Auto) , Eosinophils (%) (Auto) , Basophils (%) (Auto) , Differential Total Cells Counted 100, Neutrophils % (Manual) 94H, Lymphocytes % (Manual) 5L, Monocytes % (Manual) 1, Eosinophils % (Manual) 0, Basophils % (Manual) 0, Band Neutrophils 0, Platelet Estimate DecreasedL, Platelet Morphology Normal, Polychromasia 1+, Hypochromasia 1+, Sodium Level 142, Potassium Level 3.2L, Chloride Level 106, Carbon Dioxide Level 23, Anion Gap 13, Blood Urea Nitrogen 101H, Creatinine 2.5H, Estimat Glomerular Filtration Rate 20.6, Glucose Level 78, Calcium Level 7.3L, Random Vancomycin Level 18.9 Height (Feet): 5 Height (Inches): 3.00 Weight (Pounds): 128 General Appearance: WD/WN, no apparent distress, alert EENT: normal ENT inspection Neck: supple Cardiovascular: normal rate, regular rhythm, bradycardia Respiratory/Chest: lungs clear, normal breath sounds, no respiratory distress, no accessory muscle use Abdomen: normal bowel sounds, non tender, soft, no organomegaly, no mass Extremities: non-tender Edema: mild edema Neurologic: alert, responsive, aphasia Skin: warm/dry Assessment/Plan Status Narrative Patient is awake alert febrile hemodynamically stable and mostly bradycardic between 55-60 she has eye contact normal attention span and smiles improved as compared to the last several days her blood culture grew gram-positive cocci's in pairs and gram-negative rods in both bottles currently is on avicase 500 mg every 12and tobramycin . her WBC declined from 34-32 she was not dialyzed today but her electrolytes were corrected she tolerated feeding without rectal bleeding repeat laboratory tests will be done in a.m. as a Lucas Paul MD, MD Mar 07, 2020 18:52
--- NOTE | 2020-03-07 19:30 | NUR ---
NURSE NOTES: RECEIVED PATIENT IN BED WITH TRACH TO VENT TV500 AC 14 FIO2 40% PEEP 5 WELL TOLERATED . GT FEEDING NEPRO AT 35 CC/HR,NO RESIDUALS NOTED.KEPT HOB AT 35 DEGREES.VITAL SIGNS TAKEN WITH BP 110/56 SB 44/MIN. TEMP 96.1 KEPT PT WARM WITH ADDITIONAL BLANKET ,REPOSITIONED FOR COMFORT,HAD DARK TARRY STOOL GOOD PERICARE RENDERED,WOUND DRESSING TO SACRAL AREA DRY AND INTACT.JAMES CONTINUE PLAN OF CARE.
[2020-03-07 20:15] VITALS: BP 110/44
[2020-03-07] MEDS: Dyna-Hex 2% Top Sol 2oz TOPIC SCH (21:28)
[2020-03-08] VITALS: BP 110/60
--- NOTE | 2020-03-08 02:16 | Cardiology Progress Note ---
Subjective DATE OF SERVICE: Mar 07, 2020 Still with episodes of sinus bradycardia mostly during sleep; asymptomatic BP parameters stable. Objective Last 24 Hour Vital Signs Date Time Temp Pulse Resp B/P (MAP) Pulse Ox O2 Delivery O2 Flow Rate FiO2 03/08/20 00:00 57 03/08/20 00:00 96.3 52 22 110/60 (77) 99 03/08/20 00:00 Mechanical Ventilator 03/07/20 23:18 52 15 40 03/07/20 20:15 96.5 44 14 110/44 (66) 99 03/07/20 20:00 Mechanical Ventilator 03/07/20 20:00 43 03/07/20 20:00 40 03/07/20 19:43 41 14 40 03/07/20 16:00 Mechanical Ventilator 03/07/20 16:00 40 03/07/20 16:00 65 03/07/20 16:00 96.1 47 18 111/47 (68) 99 03/07/20 15:40 49 14 40 03/07/20 12:00 97.2 73 18 93/49 (64) 95 03/07/20 12:00 Mechanical Ventilator 03/07/20 12:00 65 03/07/20 12:00 40 03/07/20 11:50 51 16 40 03/07/20 08:00 97.7 53 15 126/55 (78) 95 03/07/20 08:00 Mechanical Ventilator 03/07/20 08:00 40 03/07/20 08:00 59 03/07/20 07:40 54 20 40 03/07/20 04:00 96.8 53 15 118/49 (72) 95 03/07/20 04:00 Mechanical Ventilator 03/07/20 04:00 55 03/07/20 04:00 40 03/07/20 03:10 60 19 40 HEENT: Thin Trach secretions RHYTHM: NSR, SB LUNGS: bilateral rhonchi - few, trach site clean CARDIAC: normal rate, regular rhythm, normal S1 and S2 ABDOMEN: normal bowel sounds, non tender, soft, G-Tube intact EXTREMITIES: normal range of motion, non-tender, normal inspection Laboratory Tests Test 03/07/20 03:20 White Blood Count 32.6 K/UL (4.8-10.8) *H Red Blood Count 2.63 M/UL (4.20-5.40) L Hemoglobin 8.0 G/DL (12.0-16.0) L Hematocrit 22.2 % (37.0-47.0) L Mean Corpuscular Volume 85 FL (80-99) Mean Corpuscular Hemoglobin 30.3 PG (27.0-31.0) Mean Corpuscular Hemoglobin Concent 35.9 G/DL (32.0-36.0) Red Cell Distribution Width 13.3 % (11.6-14.8) Platelet Count 123 K/UL (150-450) L Mean Platelet Volume 6.0 FL (6.5-10.1) L Neutrophils (%) (Auto) % (45.0-75.0) Lymphocytes (%) (Auto) % (20.0-45.0) Monocytes (%) (Auto) % (1.0-10.0) Eosinophils (%) (Auto) % (0.0-3.0) Basophils (%) (Auto) % (0.0-2.0) Differential Total Cells Counted 100 Neutrophils % (Manual) 94 % (45-75) H Lymphocytes % (Manual) 5 % (20-45) L Monocytes % (Manual) 1 % (1-10) Eosinophils % (Manual) 0 % (0-3) Basophils % (Manual) 0 % (0-2) Band Neutrophils 0 % (0-8) Platelet Estimate Decreased L Platelet Morphology Normal Polychromasia 1+ Hypochromasia 1+ Sodium Level 142 MMOL/L (136-145) Potassium Level 3.2 MMOL/L (3.5-5.1) L Chloride Level 106 MMOL/L (98-107) Carbon Dioxide Level 23 MMOL/L (21-32) Anion Gap 13 mmol/L (5-15) Blood Urea Nitrogen 101 mg/dL (7-18) H Creatinine 2.5 MG/DL (0.55-1.30) H Estimat Glomerular Filtration Rate 20.6 mL/min (>60) Glucose Level 78 MG/DL (74-106) Calcium Level 7.3 MG/DL (8.5-10.1) L Random Vancomycin Level 18.9 ug/mL Microbiology Date/Time Source Procedure Growth Status 03/06/20 09:55 Blood Blood Culture - Preliminary Resulted 03/06/20 09:45 Blood Blood Culture - Preliminary Resulted Assessment/Plan Assessment/Plan Sepsis with recovered shock Sinus node disease with bradycardia Hx pacemaker explant Ischemic cardiomyopathy - hx CABG Paroxysmal Atrial Fib 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
[2020-03-08 04:00] VITALS: BP 153/58
[2020-03-08] MEDS: Metoclopramide 10mg/2ml Inj IVP SCH ×3 (05:08→22:00)
--- NOTE | 2020-03-08 07:26 | NUR ---
NURSE HAND-OFF REPORT: Important Events on Shift:yes Patient Status: stable Diet:GT Nepro at 35cc/hr Pending Orders: none Pending Results/Labs:cbc, bmp Pending MD notification:paged md for bloody stool Latest Vital Signs: Temperature 96.4 , Pulse 66 , B/P 153 /58 , Respiratory Rate 24 , O2 SAT 99 , Mechanical Ventilator, O2 Flow Rate . Vital Sign Comment: EKG Rhythm: Sinus Rhythm Rhythm change?: Y Notified?: N -Dr Екатерина HATFIELD Response: No New Orders Received Latest Chavarria Fall Score: 50 Fall Risk: High Risk Safety Measures: Call light Within Reach, Bed Alarm Zone 1, Side Rails Side Rails x2, Bed position Low and Locked. Fall Precautions: Yellow Socks Report given to ERASMO Valencia.
--- NOTE | 2020-03-08 07:29 | NUR ---
NURSE NOTES: Received report from Claudy ZIMMERMAN.
[2020-03-08 07:58] LABS: HEMATOCRIT 22.9 % (37.0-47.0); HEMOGLOBIN 8.1 G/DL (12.0-16.0); MEAN CORPUSCULAR VOLUME 87 FL (80-99); PLATELET COUNT 112 K/UL (150-450); RED BLOOD COUNT 2.65 M/UL (4.20-5.40); RED CELL DISTRIBUTION WIDTH 14.5 % (11.6-14.8)
[2020-03-08 08:00] VITALS: BP 150/64
[2020-03-08 08:00] LABS: WHITE BLOOD COUNT 36.8 K/UL (4.8-10.8)
[2020-03-08] MEDS: D5W IV SCH ×2 (08:30→22:19)
[2020-03-08] MEDS: CEFTAZIDIME IV SCH ×2 (08:30→22:19)
[2020-03-08] MEDS: Pantoprazole Inj IVP SCH ×2 (08:30→22:01)
[2020-03-08] MEDS: AVIBACTAM IV SCH ×2 (08:30→22:19)
[2020-03-08 08:31] LABS: ALANINE AMINOTRANSFERASE 18 U/L (12-78); ALBUMIN 2.5 G/DL (3.4-5.0); ALBUMIN/GLOBULIN RATIO 0.7 (1.0-2.7); ALKALINE PHOSPHATASE 169 U/L (46-116); ANION GAP 17 mmol/L (5-15); ASPARTATE AMINO TRANSFERASE 40 U/L (15-37); BILIRUBIN,TOTAL 0.4 MG/DL (0.2-1.0); BLOOD UREA NITROGEN 123 mg/dL (7-18); CALCIUM 6.9 MG/DL (8.5-10.1); CARBON DIOXIDE 21 MMOL/L (21-32); CHLORIDE 106 MMOL/L (98-107); CREATININE 2.8 MG/DL (0.55-1.30); PHOSPHORUS 7.6 MG/DL (2.5-4.9); POTASSIUM 3.8 MMOL/L (3.5-5.1); SODIUM 143 MMOL/L (136-145)
[2020-03-08] MEDS: Aspirin Baby 81mg GT SCH (08:31)
[2020-03-08] MEDS: Midodrine 10mg tab GT SCH ×3 (08:31→18:00)
--- NOTE | 2020-03-08 08:45 | NUR ---
NURSE NOTES: Pt. in bed, awake, alert, smiling at the nurse. Nod when ask question. No s/sx of distress. Mech. vent dependent AC14/VT500/Fi O2 of 40%/P5. No grimacing noted. HOB elevated at all times. On GTF Nepro at 35cc/hr. No n/v noted. Tolerating well at present. IV site at left FA 22g. and right hand 22g. Bed in low position, locked. Call light within reach. Will cont. to monitor.
[2020-03-08] MEDS: Dakin's 0.125% Soln (Quarter Strength) 16oz TOPIC SCH (09:08)
--- NOTE | 2020-03-08 09:53 | Pulmonology Progress Note ---
Subjective ROS Limited/Unobtainable: Yes Interval Events: none major reported per nursing HEENT: Repors: no symptoms Respiratory: Reports: no symptoms Cardiovascular: Reports: no symptoms Gastrointestinal/Abdominal: Reports: diarrhea Allergies: Coded Allergies: No Known Allergies (Unverified , 10/10/17) All Systems: reviewed and negative except above Objective Last 24 Hour Vital Signs Date Time Temp Pulse Resp B/P (MAP) Pulse Ox O2 Delivery O2 Flow Rate FiO2 03/08/20 04:03 Mechanical Ventilator 03/08/20 04:02 40 03/08/20 04:00 96.4 66 24 153/58 (89) 99 03/08/20 04:00 56 03/08/20 03:56 59 20 40 03/08/20 00:00 57 03/08/20 00:00 96.3 52 22 110/60 (77) 99 03/08/20 00:00 Mechanical Ventilator 03/07/20 23:18 52 15 40 03/07/20 20:15 96.5 44 14 110/44 (66) 99 03/07/20 20:00 Mechanical Ventilator 03/07/20 20:00 43 03/07/20 20:00 40 03/07/20 19:43 41 14 40 03/07/20 16:00 Mechanical Ventilator 03/07/20 16:00 40 03/07/20 16:00 65 03/07/20 16:00 96.1 47 18 111/47 (68) 99 03/07/20 15:40 49 14 40 03/07/20 12:00 97.2 73 18 93/49 (64) 95 03/07/20 12:00 Mechanical Ventilator 03/07/20 12:00 65 03/07/20 12:00 40 03/07/20 11:50 51 16 40 Intake and Output 03/07/20 03/08/20 19:00 07:00 Intake Total 520 ml Balance 520 ml Intake Free Water 60 ml IV Total 110 ml Tube Feeding 350 ml # Bowel Movements 1 General Appearance: no acute distress HEENT: atraumatic Respiratory: lungs clear Cardiovascular: regular rhythm, bradycardia Extremities: other - oedema bilateral Microbiology Date/Time Source Procedure Growth Status 03/06/20 09:55 Blood Blood Culture - Preliminary Gram Negative Arnaud Gram Positive Cocci Resulted 03/06/20 09:45 Blood Blood Culture - Preliminary Gram Negative Arnaud Resulted Laboratory Tests 03/08/20 06:05: White Blood Count 36.8*H, Red Blood Count 2.65L, Hemoglobin 8.1L, Hematocrit 22.9L, Mean Corpuscular Volume 87, Mean Corpuscular Hemoglobin 30.5, Mean Corpuscular Hemoglobin Concent 35.3, Red Cell Distribution Width 14.5, Platelet Count 112L, Mean Platelet Volume 7.2, Neutrophils (%) (Auto) , Lymphocytes (%) (Auto) , Monocytes (%) (Auto) , Eosinophils (%) (Auto) , Basophils (%) (Auto) , Differential Total Cells Counted 100, Neutrophils % (Manual) 91H, Lymphocytes % (Manual) 6L, Monocytes % (Manual) 3, Eosinophils % (Manual) 0, Basophils % (Manual) 0, Band Neutrophils 0, Platelet Estimate DecreasedL, Platelet Morphology Normal, Polychromasia 1+, Hypochromasia 1+, Anisocytosis 1+, Sodium Level 143, Potassium Level 3.8, Chloride Level 106, Carbon Dioxide Level 21, Anion Gap 17H, Blood Urea Nitrogen 123H, Creatinine 2.8H, Estimat Glomerular Filtration Rate 18.1, Glucose Level 26*L, Calcium Level 6.9L, Phosphorus Level 7.6H, Magnesium Level 2.2, Total Bilirubin 0.4, Aspartate Amino Transf (AST/SGOT) 40H, Alanine Aminotransferase (ALT/SGPT) 18, Alkaline Phosphatase 169H, C-Reactive Protein, Quantitative 4.8H, Pro-B-Type Natriuretic Peptide > 03295F, Total Protein 5.9L, Albumin 2.5L, Globulin 3.4, Albumin/Globulin Ratio 0.7L Current Medications Medications (Trade) Dose Ordered Sig/Penny Route PRN Reason Start Time Stop Time Status Last Admin Dose Admin Acetaminophen (Tylenol) 650 mg Q6H PRN GT Mild Pain (Pain Scale 1-3) 03/02/20 22:30 04/01/20 22:29 Acetaminophen (Tylenol) 650 mg Q6H PRN GT Temp >100.5 03/03/20 03:00 04/01/20 22:29 Aspirin (ASA) 81 mg DAILY GT 03/07/20 09:00 04/21/20 08:59 03/08/20 08:31 Ceftazidime/ Avibactam 0.94 gm/ Dextrose 110 ml @ 110 mls/hr Q12HR IV 03/06/20 13:00 03/13/20 12:59 03/08/20 08:30 Chlorhexidine Gluconate (Ling-Hex 2%) 1 applic DAILY@1999 TOPIC 03/03/20 20:00 06/01/20 19:59 03/07/20 21:28 Hydralazine HCl (Apresoline) 25 mg Q6H PRN GT For High Blood Pressure 03/02/20 22:00 05/31/20 21:59 Loperamide HCl (Imodium) 2 mg Q6H PRN GT Diarrhea 03/06/20 12:45 04/05/20 12:44 03/06/20 13:01 Metoclopramide HCl (Reglan) 5 mg Q8HR IVP 03/04/20 11:45 04/03/20 11:44 03/08/20 05:08 Micafungin Sodium 100 mg/Sodium Chloride 110 ml @ 110 mls/hr Q24H IVPB 03/06/20 11:00 03/13/20 10:59 03/07/20 11:16 Midodrine (Pro-Amatine) 10 mg THREE TIMES A DAY GT 03/04/20 13:00 06/01/20 12:59 03/08/20 08:31 Pantoprazole (Protonix) 40 mg EVERY 12 HOURS IVP 03/04/20 21:00 04/02/20 20:59 03/08/20 08:30 Polyethylene Glycol (Miralax) 17 gm BEDTIME PRN GT Constipation 03/02/20 22:00 04/01/20 21:59 Pravastatin Sodium (Pravachol) 20 mg BEDTIME GT 03/07/20 21:00 04/06/20 20:59 03/07/20 21:28 Sodium Hypochlorite (Dakin's Quarter Strength) 1 applic DAILY TOPIC 03/04/20 09:00 04/03/20 08:59 03/08/20 09:08 Tobramycin Protocol (Tobramycin pharmacy to dose) 1 ea DAILY PRN MISC Per rx protocol 03/06/20 09:15 04/05/20 09:14 Tobramycin Sulfate 80 mg/ Sodium Chloride 55 ml @ 110 mls/hr POSTHD IV 03/06/20 12:00 03/13/20 11:59 Vancomycin HCl (Vanco pharmacy to dose) 1 ea DAILY PRN MISC Per rx protocol 03/03/20 09:15 04/02/20 09:14 Assessment/Plan Assessment/Plan Assessment/Plan 1. Chronic respiratory failure. 2. Mechanical ventilation. - current setting at AC 14, Vt 500, FiO2 40%, PEEP 5 saturating at 92-93% - continue current setting - suction secretions as needed 3. Chronic tracheostomy. 4. Chronic G-tube. - now NPO 5. Anemia. - s/p transfusion - stool OB positive 6. Renal failure. 7. Leukocytosis and sepsis wbc 36.8 defer to ID 8. Sepsis UTI 9. Gram positive cocci bacteremia 10. COVID-19 negative 11. Diarrhea - C. diff neg 12.Hypoglycemia Moshe Villalobos [employer] MACHINE ATTEND[employer] Mar 08, 2020 09:53
--- NOTE | 2020-03-08 10:01 | Infectious Diseases Prog Note ---
Assessment/Plan 49yo F with: AMS Anemia to 1.9 on admission 03/02 Leukocytosis to 40 GPC bacteremia UTI Possible pna Hypotension 03/02 BCx 1/2 +Staph epi, 1/ +Staph haemolyticus (m/l skin colonizers) UA+, UCx >100k P.stuartii (S-angelo) & CRE P.mirablis (R-polyB/colistin, S- tobramycin) COVID rapid neg, PCR neg CXR: Tracheostomy again demonstrated. Interim placement of a right jugular tunneled dialysis catheter. There is infiltrate and volume loss in the left claire g, particularly in the perihilar region, suprahilar region, and base. Consolidation at the lung base is similar. The perihilar and suprahilar region consolidation is new. The right lung pleural space are clear. C.dif neg 03/03 BCx NTD 03/06 BCx /2 + GNR, 2 +GNR & GPC 03/08 BCx ordered AF Sepsis Leukocytosis Hypoxia on vent Pneumonia c/b L pleural effusion (recurrent, prior determined to be transudative) - s/p thora 01/21, 1050cc removed Volume overload, BNP >35,0000, likely 2/2 progressive CKD --> ESRD ?Pancreatitis, Lipase >2000 Acute anemia to 5s CONS bacteremia, ?contaminant Aflutter w/ RVR 01/13 BCx 2/2 +S. epi COVID PCR neg Flu neg CXR: Large left pleural effusion. Bilateral interstitial and airspace infiltrates versus edema MRSA nares neg 01/16 BCx NTD 01/17 BCx 1/2 +Staph auricularis (skin colonizer) 01/18 Resp cx +MDR CRE PsA (S-gent, I-colistin, R-polyB) 01/18 C.dif neg 01/18 CXR: Similar opacification of the left hemithorax likely representing combination of pleural effusion with atelectasis versus pneumonia/edema. Decreased but persistent hazy opacity throughout the right lung may represent edema versus infectious/inflammatory process. 01/20 BCx NTD 01/21 L thora 1050 cc removed, cx NTD 01/25 Wound cx from Gtube site +CRE Kleb pna (arnett-R) and MDR PsA (colonizers) 01/26 CT A/P: Limited exam, due to severe diffuse anasarca. Ascites. Bilateral pleural effusions. Basilar pulmonary atelectatic changes and consolidation. Gastrostomy. Atrophic left kidney with a nephroureteral stents again demonstrated. Possible retrococcygeal decubitus changes. Correlate with clinical findings, consider MRI if there is concern for sacral osteomyelitis. Right hip intertrochanteric fracture, also previously demonstrated. Left femoral dialysis catheter. Nonspecific right lobe liver lesion is unchanged, not well- demonstrated. ctasia bordering on aneurysmal dilatation and possible chronic dissection of the distal thoracic aorta, also previously described. JAVIER on CKD On previous admission Sep-Oct 2019 required HD for short period Going to start HD this admission again R/o COVID 01/14 COVID PCR neg 12/29 neg at SN[facility] per report H/o UTI 11/27 u/a wbc 30-40, nit neg, leuk +3; ucx ESBL P. mirablis, ESBL M. morganii 09/15/19 u/a wbc tnct, nit neg, leuk +3; ucx >100k MDR P. stuarti (S Ceftriax one, Meropenem) 10/07 u/a wbc tnct, nit neg, leuk ; ucx >100k VRE 10/15/19 u/a wbc tnct; ucx >100k ESBL P. stuarti (S ertapenem, aztreonam) H/o transudative pleural effusion 11/28 Sp Thora (w: 169, PMN: 2%, L: 49% , LDH: 57, prot 2.5); cx Neg H/o PNA 10/15/19 Resp cx ESBL P. mirabilis, MDR P.a. (S only to Gent) 09/22 Resp cx + MDR PsA (S-gent; I-colistin; R-levofloxacin, Zosyn, angelo) 09/16/19 Sp cx ESBL P. mirablis H/o PPM site (pocket) infection and pocket abscess 2ry to S. epi-11/2018, sp >6weeks IV vancomycin 11/27 SP ABBIE: no evidence for vegetation on any of the valves 11/26/18 SP PPM removal: OR findings:The fibrous capsule enclosing the generator was then opened and there was a [id number] amount of yellowish fluid drainage. The generator was then removed.Atrial and ventricular leads were detached. The necrotic tissue of the pocket was then removed and the pocket was flushed with an antibiotic solution. Capsule, wound tissue and lead tip cx: Neg 2d echo: no vegetation seen US chest: 4.6 x 3.4 x 0.9 cm hypoechoic/anechoic area overlying left chest pacemaker power pack. This could represent either a discrete fluid collection or a focal area of very edematous tissue. Infected fluid pocket also possible. 11/18 Bcx 3/4 S. epi; 11/20 Bcx neg; 11/24 Bcx Neg; 11/27 Bcx Neg CAD s/p CABG GERD/gastritis Afib HTN Dysphagia sp GT Aortic dissection s/p repair 2018 S/p PPM Parkinson's Disease Schizophrenia Anxiety COPD Chronic resp failure s/p trach Hx of tracheal bleeding [place] resident ([facility]) VRE and MRSA colonized Plan: Cont vanco IV #7 given CONS bacteremia/sepsis Cont tobramycin #3 per Pharmacy given UCx results Cont Avycaz #3 given worsening sepsis, arnett-R organism in UCx Cont micafungin #3 empiric for possible fungal sepsis given GIB, could have fungal translocation, takes some time to grow on BCx Repeat BCx CT chest/Abd/Pelvis given ongoing sepsis, unclear source If imaging without clear source for infection, then will need line re moval/holiday D/w Micro lab about obtaining UCx sensi to Avycaz/Zerbaxa, f/u results Trend Hg, GIB Trend BP, WBC 01/31 SP angelo/inh tobra #10 for pna 01/23 SP vanco IV #10 given CONS/GPC bacteremia 01/16 SP Zosyn #2 01/14 SP dex 10mg in ED 12/10 SP IV Gentamycin #10 12/07 SP Meropenem #10 12/01 SP IV Vancomycin #5 11/28 Sp Cefepime #2 and IV Gentamycin x1 Monitor CBC/CMP Monitor temp curve, hemodynamics Monitor resp status D/w RN Thank you for this consult. [facility] will continue to follow. Subjective Allergies: Coded Allergies: No Known Allergies (Unverified , 10/10/17) AF WBC increasing to 36 Bcx from 03/06 positive despite broad-spectrum abx BP improved, high Improved awakeness Dark BM last night, not yet today Objective Last 24 Hour Vital Signs Date Time Temp Pulse Resp B/P (MAP) Pulse Ox O2 Delivery O2 Flow Rate FiO2 03/08/20 04:03 Mechanical Ventilator 03/08/20 04:02 40 03/08/20 04:00 96.4 66 24 153/58 (89) 99 03/08/20 04:00 56 03/08/20 03:56 59 20 40 03/08/20 00:00 57 03/08/20 00:00 96.3 52 22 110/60 (77) 99 03/08/20 00:00 Mechanical Ventilator 03/07/20 23:18 52 15 40 03/07/20 20:15 96.5 44 14 110/44 (66) 99 03/07/20 20:00 Mechanical Ventilator 03/07/20 20:00 43 03/07/20 20:00 40 03/07/20 19:43 41 14 40 03/07/20 16:00 Mechanical Ventilator 03/07/20 16:00 40 03/07/20 16:00 65 03/07/20 16:00 96.1 47 18 111/47 (68) 99 03/07/20 15:40 49 14 40 03/07/20 12:00 97.2 73 18 93/49 (64) 95 03/07/20 12:00 Mechanical Ventilator 03/07/20 12:00 65 03/07/20 12:00 40 03/07/20 11:50 51 16 40 Height (Feet): 5 Height (Inches): 3.00 Weight (Pounds): 128 Gen: NAD HEENT: NCAT, trach Pulm: BL chest rise on vent Abd: Soft, NTND, +PEG Ext: No c/c/e Skin: No visible rashes Neuro: Awake, minimally interactive Lines: R chest Permacath dressing c/d/i Microbiology Date/Time Source Procedure Growth Status 03/06/20 09:55 Blood Blood Culture - Preliminary Gram Negative Arnaud Gram Positive Cocci Resulted 03/06/20 09:45 Blood Blood Culture - Preliminary Gram Negative Arnaud Resulted Laboratory Tests Test 03/08/20 06:05 White Blood Count 36.8 K/UL (4.8-10.8) *H Red Blood Count 2.65 M/UL (4.20-5.40) L Hemoglobin 8.1 G/DL (12.0-16.0) L Hematocrit 22.9 % (37.0-47.0) L Mean Corpuscular Volume 87 FL (80-99) Mean Corpuscular Hemoglobin 30.5 PG (27.0-31.0) Mean Corpuscular Hemoglobin Concent 35.3 G/DL (32.0-36.0) Red Cell Distribution Width 14.5 % (11.6-14.8) Platelet Count 112 K/UL (150-450) L Mean Platelet Volume 7.2 FL (6.5-10.1) Neutrophils (%) (Auto) % (45.0-75.0) Lymphocytes (%) (Auto) % (20.0-45.0) Monocytes (%) (Auto) % (1.0-10.0) Eosinophils (%) (Auto) % (0.0-3.0) Basophils (%) (Auto) % (0.0-2.0) Differential Total Cells Counted 100 Neutrophils % (Manual) 91 % (45-75) H Lymphocytes % (Manual) 6 % (20-45) L Monocytes % (Manual) 3 % (1-10) Eosinophils % (Manual) 0 % (0-3) Basophils % (Manual) 0 % (0-2) Band Neutrophils 0 % (0-8) Platelet Estimate Decreased L Platelet Morphology Normal Polychromasia 1+ Hypochromasia 1+ Anisocytosis 1+ Sodium Level 143 MMOL/L (136-145) Potassium Level 3.8 MMOL/L (3.5-5.1) Chloride Level 106 MMOL/L (98-107) Carbon Dioxide Level 21 MMOL/L (21-32) Anion Gap 17 mmol/L (5-15) H Blood Urea Nitrogen 123 mg/dL (7-18) H Creatinine 2.8 MG/DL (0.55-1.30) H Estimat Glomerular Filtration Rate 18.1 mL/min (>60) Glucose Level 26 MG/DL (74-106) *L Calcium Level 6.9 MG/DL (8.5-10.1) L Phosphorus Level 7.6 MG/DL (2.5-4.9) H Magnesium Level 2.2 MG/DL (1.8-2.4) Total Bilirubin 0.4 MG/DL (0.2-1.0) Aspartate Amino Transf (AST/SGOT) 40 U/L (15-37) H Alanine Aminotransferase (ALT/SGPT) 18 U/L (12-78) Alkaline Phosphatase 169 U/L (46-116) H C-Reactive Protein, Quantitative 4.8 mg/dL (0.00-0.90) H Pro-B-Type Natriuretic Peptide > 16345 pg/mL (0-125) H Total Protein 5.9 G/DL (6.4-8.2) L Albumin 2.5 G/DL (3.4-5.0) L Globulin 3.4 g/dL Albumin/Globulin Ratio 0.7 (1.0-2.7) L Current Medications Medications (Trade) Dose Ordered Sig/Penny Route PRN Reason Start Time Stop Time Status Last Admin Dose Admin Acetaminophen (Tylenol) 650 mg Q6H PRN GT Mild Pain (Pain Scale 1-3) 03/02/20 22:30 04/01/20 22:29 Acetaminophen (Tylenol) 650 mg Q6H PRN GT Temp >100.5 03/03/20 03:00 04/01/20 22:29 Aspirin (ASA) 81 mg DAILY GT 03/07/20 09:00 04/21/20 08:59 03/08/20 08:31 Ceftazidime/ Avibactam 0.94 gm/ Dextrose 110 ml @ 110 mls/hr Q12HR IV 03/06/20 13:00 03/13/20 12:59 03/08/20 08:30 Chlorhexidine Gluconate (Ling-Hex 2%) 1 applic DAILY@2000 TOPIC 03/03/20 20:00 06/01/20 19:59 03/07/20 21:28 Hydralazine HCl (Apresoline) 25 mg Q6H PRN GT For High Blood Pressure 03/02/20 22:00 05/31/20 21:59 Loperamide HCl (Imodium) 2 mg Q6H PRN GT Diarrhea 03/06/20 12:45 04/05/20 12:44 03/06/20 13:01 Metoclopramide HCl (Reglan) 5 mg Q8HR IVP 03/04/20 11:45 04/03/20 11:44 03/08/20 05:08 Micafungin Sodium 100 mg/Sodium Chloride 110 ml @ 110 mls/hr Q24H IVPB 03/06/20 11:00 03/13/20 10:59 03/07/20 11:16 Midodrine (Pro-Amatine) 10 mg THREE TIMES A DAY GT 03/04/20 13:00 06/01/20 12:59 03/08/20 08:31 Pantoprazole (Protonix) 40 mg EVERY 12 HOURS IVP 03/04/20 21:00 04/02/20 20:59 03/08/20 08:30 Polyethylene Glycol (Miralax) 17 gm BEDTIME PRN GT Constipation 03/02/20 22:00 04/01/20 21:59 Pravastatin Sodium (Pravachol) 20 mg BEDTIME GT 03/07/20 21:00 04/06/20 20:59 03/07/20 21:28 Sodium Hypochlorite (Dakin's Quarter Strength) 1 applic DAILY TOPIC 03/04/20 09:00 04/03/20 08:59 03/08/20 09:08 Tobramycin Protocol (Tobramycin pharmacy to dose) 1 ea DAILY PRN MISC Per rx protocol 03/06/20 09:15 04/05/20 09:14 Tobramycin Sulfate 80 mg/ Sodium Chloride 55 ml @ 110 mls/hr POSTHD IV 03/06/20 12:00 03/13/20 11:59 Vancomycin HCl (Vanco pharmacy to dose) 1 ea DAILY PRN MISC Per rx protocol 03/03/20 09:15 04/02/20 09:14 Ro Pack M.D. Mar 08, 2020 10:01
[2020-03-08] MEDS ORDERED: Omnipaque-300 100ml vial INJ PRN (10:15)
--- NOTE | 2020-03-08 10:47 | Surgery Progress Note ---
Surgery Progress Note Subjective Additional Comments leukocytosis anemia plt low no n/v iill appearing Objective Last 24 Hour Vital Signs Date Time Temp Pulse Resp B/P (MAP) Pulse Ox O2 Delivery O2 Flow Rate FiO2 03/08/20 08:00 Mechanical Ventilator 03/08/20 08:00 40 03/08/20 08:00 97.0 63 22 150/64 (92) 100 03/08/20 04:03 Mechanical Ventilator 03/08/20 04:02 40 03/08/20 04:00 96.4 66 24 153/58 (89) 99 03/08/20 04:00 56 03/08/20 03:56 59 20 40 03/08/20 00:00 57 03/08/20 00:00 96.3 52 22 110/60 (77) 99 03/08/20 00:00 Mechanical Ventilator 03/07/20 23:18 52 15 40 03/07/20 20:15 96.5 44 14 110/44 (66) 99 03/07/20 20:00 Mechanical Ventilator 03/07/20 20:00 43 03/07/20 20:00 40 03/07/20 19:43 41 14 40 03/07/20 16:00 Mechanical Ventilator 03/07/20 16:00 40 03/07/20 16:00 65 03/07/20 16:00 96.1 47 18 111/47 (68) 99 03/07/20 15:40 49 14 40 03/07/20 12:00 97.2 73 18 93/49 (64) 95 03/07/20 12:00 Mechanical Ventilator 03/07/20 12:00 65 03/07/20 12:00 40 03/07/20 11:50 51 16 40 I&O Intake and Output 03/07/20 03/08/20 19:00 07:00 Intake Total 520 ml Balance 520 ml Intake Free Water 60 ml IV Total 110 ml Tube Feeding 350 ml # Bowel Movements 1 Dressing: saturated Cardiovascular: RSR Respiratory: decreased breath sounds Abdomen: soft, flat, non-tender, present bowel sounds Extremities: no tenderness, no cyanosis Laboratory Tests Test 03/08/20 06:05 White Blood Count 36.8 K/UL (4.8-10.8) *H Red Blood Count 2.65 M/UL (4.20-5.40) L Hemoglobin 8.1 G/DL (12.0-16.0) L Hematocrit 22.9 % (37.0-47.0) L Mean Corpuscular Volume 87 FL (80-99) Mean Corpuscular Hemoglobin 30.5 PG (27.0-31.0) Mean Corpuscular Hemoglobin Concent 35.3 G/DL (32.0-36.0) Red Cell Distribution Width 14.5 % (11.6-14.8) Platelet Count 112 K/UL (150-450) L Mean Platelet Volume 7.2 FL (6.5-10.1) Neutrophils (%) (Auto) % (45.0-75.0) Lymphocytes (%) (Auto) % (20.0-45.0) Monocytes (%) (Auto) % (1.0-10.0) Eosinophils (%) (Auto) % (0.0-3.0) Basophils (%) (Auto) % (0.0-2.0) Differential Total Cells Counted 100 Neutrophils % (Manual) 91 % (45-75) H Lymphocytes % (Manual) 6 % (20-45) L Monocytes % (Manual) 3 % (1-10) Eosinophils % (Manual) 0 % (0-3) Basophils % (Manual) 0 % (0-2) Band Neutrophils 0 % (0-8) Platelet Estimate Decreased L Platelet Morphology Normal Polychromasia 1+ Hypochromasia 1+ Anisocytosis 1+ Sodium Level 143 MMOL/L (136-145) Potassium Level 3.8 MMOL/L (3.5-5.1) Chloride Level 106 MMOL/L (98-107) Carbon Dioxide Level 21 MMOL/L (21-32) Anion Gap 17 mmol/L (5-15) H Blood Urea Nitrogen 123 mg/dL (7-18) H Creatinine 2.8 MG/DL (0.55-1.30) H Estimat Glomerular Filtration Rate 18.1 mL/min (>60) Glucose Level 26 MG/DL (74-106) *L Calcium Level 6.9 MG/DL (8.5-10.1) L Phosphorus Level 7.6 MG/DL (2.5-4.9) H Magnesium Level 2.2 MG/DL (1.8-2.4) Total Bilirubin 0.4 MG/DL (0.2-1.0) Aspartate Amino Transf (AST/SGOT) 40 U/L (15-37) H Alanine Aminotransferase (ALT/SGPT) 18 U/L (12-78) Alkaline Phosphatase 169 U/L (46-116) H C-Reactive Protein, Quantitative 4.8 mg/dL (0.00-0.90) H Pro-B-Type Natriuretic Peptide > 31637 pg/mL (0-125) H Total Protein 5.9 G/DL (6.4-8.2) L Albumin 2.5 G/DL (3.4-5.0) L Globulin 3.4 g/dL Albumin/Globulin Ratio 0.7 (1.0-2.7) L Plan Problems: (1) Pancreatitis Assessment & Plan: (1) Pancreatitis Assessment & Plan: 49-year-old female well-known to me presents with pancreatitis lipase elevated greater than 2000 history of this in the past. Tolerating tube feeds. Okay for diet. Continue to trend labs. Abdominal examination otherwise benign. Will obtain imaging as necessary. Currently leukocytosis significant anemia. Heme input appreciated. Thank you will follow with recommendations Assessment & Plan: Leukocytosis anemia abnormal labs elevated LFTs elevated lip ase acute pancreatitis along with potential pneumonia UTI Covid negative C. difficile negative. Continue antibiotics. Trend labs. DAILY ESTIMATED NEEDS: Needs based on Critical care, wound, renal dysfunction 59.5 kg 27-22 kcals/kg 7323-6135 total kcals W/ HD (1.5-2.0) g protein/kg 89-119 g total protein Fluid per MD NUTRITION DIAGNOSIS: * Swallowing difficulty R/T dysphagia, respiratory status as evidenced by vent dep via trach, GT Dep. * Increase kcal and pro needs r/t wound healing, renal dysfunction as evidenced by h/o stage 4 sacral wound, and HD. CURRENT TF: Nepro @ 45ml/hr x 24 hrs ENTERAL NUTRITION RECOMMENDATIONS: Nepro @ 45ml/hr x 24 hrs + Prosource 1pkt QD to provide 1080ml, 1944 kcal, 87g + 11g pro, 785ml free H2O * Advance as tolerated to goal. * Add Prosource 1pkt QD to better meet increased protein needs (additional 11g prot) * Water flush per MD/ HOB over 30 degrees ADDITIONAL RECOMMENDATIONS: * Maintain calibrated bed scale * Monitor for HD continuity * F/up w/ WC eval-> add FRANKLIN in 4oz H2O BID via GT * On lactulose, monitor for BM * Monitor BG (hypoglycemic this morning), rec bed side BG checks . Assessment & Plan: Pt presented on admission with Full Thickness Sacral Pressure Injury (L)11cm x (W)13.5cm x (D)1.6cm, Undermining clockwise 7-3 by 3cm @7o'clock. Base of wound is 90% necrotic,10% mixed pink and slough.Epibole and maceration noted along borders. Periwound ,along borders is indurated with darker skin tone . No elevation in skin temp ,or erythema noted. Wound is malodorous. Small amt brown exudate noted. MASD noted to perineum, Bilat ischial tuberosities and medial aspects of both upper thighs. Affected areas are erythematous and denuded. R Heel is boggy with non-blanchable erythema. L Heel is boggy with non-blanchable erythema. Tx.Plan:Cleanse Sacral Wound with Dakin's 0.125% Tawanna. Loosely Pack Wound with Dakin's moistened Kerlix. Apply Moisture Barrier Paste periwound. Cover with Optifoam drsg Daily and prn. Apply Moisture Barrier Paste to Perineum and Medial aspects of both upper thighs with each Incontinence care. Apply Cavilon Skin Barrier to both heels. Cover each Heel with Optifoam drsg. Change every 7 days and prn. Reposition at least every 2hours or as tolerated. Off-load heels with Pillow. APM/JENNIFER Mattress overlay (2) Elevated troponin (3) Anemia (4) Renal failure (5) ARF (acute renal failure) (6) Pacemaker (7) Sepsis (8) Hyponatremia (9) Chronic respiratory failure (10) Dehydration (11) Hypokalemia (12) Acidosis (13) Ascites (14) Bacteremia (15) Depression (16) Hypernatremia (17) Hyponatremia (18) Pleural effusion (19) Proteinuria (20) Respiratory failure (21) Schizophrenia (22) Electrolyte imbalance (23) Hypoxia (24) UTI (urinary tract infection) (25) Pneumonia (26) ACS (acute coronary syndrome) (27) NSTEMI (non-ST elevated myocardial infarction) (28) Aortic dissection, thoracic (29) Tracheostomy in place (30) Respiratory failure, acute and chronic (31) JAVIER (acute kidney injury) (32) JAVIER (acute kidney injury) (33) Abrasion of lip, initial encounter (34) COPD with exacerbation (35) Elevated alkaline phosphatase level (36) Renal failure (ARF), acute on chronic (37) Acute encephalopathy (38) HCAP (healthcare-associated pneumonia) (39) Elevated lipase (40) Sacral decubitus ulcer, stage IV (41) GT CLOGGED (42) Ventilator dependence (43) Severe anemia (44) Feeding by G-tube Lane Saavedra Mar 08, 2020 10:47
--- NOTE | 2020-03-08 11:01 | General Progress Note ---
Subjective ROS Limited/Unobtainable: No Allergies: Coded Allergies: No Known Allergies (Unverified , 10/10/17) Objective Last 24 Hour Vital Signs Date Time Temp Pulse Resp B/P (MAP) Pulse Ox O2 Delivery O2 Flow Rate FiO2 03/08/20 08:00 Mechanical Ventilator 03/08/20 08:00 40 03/08/20 08:00 97.0 63 22 150/64 (92) 100 03/08/20 07:39 65 03/08/20 04:03 Mechanical Ventilator 03/08/20 04:02 40 03/08/20 04:00 96.4 66 24 153/58 (89) 99 03/08/20 04:00 56 03/08/20 03:56 59 20 40 03/08/20 00:00 57 03/08/20 00:00 96.3 52 22 110/60 (77) 99 03/08/20 00:00 Mechanical Ventilator 03/07/20 23:18 52 15 40 03/07/20 20:15 96.5 44 14 110/44 (66) 99 03/07/20 20:00 Mechanical Ventilator 03/07/20 20:00 43 03/07/20 20:00 40 03/07/20 19:43 41 14 40 03/07/20 16:00 Mechanical Ventilator 03/07/20 16:00 40 03/07/20 16:00 65 03/07/20 16:00 96.1 47 18 111/47 (68) 99 03/07/20 15:40 49 14 40 03/07/20 12:00 97.2 73 18 93/49 (64) 95 03/07/20 12:00 Mechanical Ventilator 03/07/20 12:00 65 03/07/20 12:00 40 03/07/20 11:50 51 16 40 Intake and Output 03/07/20 03/08/20 19:00 07:00 Intake Total 520 ml Balance 520 ml Intake Free Water 60 ml IV Total 110 ml Tube Feeding 350 ml # Bowel Movements 1 Laboratory Tests 03/08/20 06:05: White Blood Count 36.8*H, Red Blood Count 2.65L, Hemoglobin 8.1L, Hematocrit 22.9L, Mean Corpuscular Volume 87, Mean Corpuscular Hemoglobin 30.5, Mean Corpuscular Hemoglobin Concent 35.3, Red Cell Distribution Width 14.5, Platelet Count 112L, Mean Platelet Volume 7.2, Neutrophils (%) (Auto) , Lymphocytes (%) (Auto) , Monocytes (%) (Auto) , Eosinophils (%) (Auto) , Basophils (%) (Auto) , Differential Total Cells Counted 100, Neutrophils % (Manual) 91H, Lymphocytes % (Manual) 6L, Monocytes % (Manual) 3, Eosinophils % (Manual) 0, Basophils % (Manual) 0, Band Neutrophils 0, Platelet Estimate DecreasedL, Platelet Morphology Normal, Polychromasia 1+, Hypochromasia 1+, Anisocytosis 1+, Sodium L evel 143, Potassium Level 3.8, Chloride Level 106, Carbon Dioxide Level 21, Anion Gap 17H, Blood Urea Nitrogen 123H, Creatinine 2.8H, Estimat Glomerular Filtration Rate 18.1, Glucose Level 26*L, Calcium Level 6.9L, Phosphorus Level 7.6H, Magnesium Level 2.2, Total Bilirubin 0.4, Aspartate Amino Transf (AST/SGOT) 40H, Alanine Aminotransferase (ALT/SGPT) 18, Alkaline Phosphatase 169H, C-Reactive Protein, Quantitative 4.8H, Pro-B-Type Natriuretic Peptide > 31224H, Total Protein 5.9L, Albumin 2.5L, Globulin 3.4, Albumin/Globulin Ratio 0.7L Height (Feet): 5 Height (Inches): 3.00 Weight (Pounds): 128 General Appearance: no apparent distress EENT: normal ENT inspection Neck: supple Cardiovascular: normal rate Respiratory/Chest: decreased breath sounds Abdomen: normal bowel sounds, non tender, soft Extremities: non-tender Assessment/Plan Problem List: (1) Hx of CABG ICD Codes: Z95.1 - Presence of aortocoronary bypass graft SNOMED: 195273878, 857990315 (2) History of tracheostomy ICD Codes: Z98.890 - Other specified postprocedural states SNOMED: 418551083, 510143749 (3) PEG (percutaneous endoscopic gastrostomy) status ICD Codes: Z93.1 - Gastrostomy status SNOMED: 012665238, 880850818 (4) Renal failure ICD Codes: N19 - Unspecified kidney failure SNOMED: 93512154, 666019903 (5) Severe anemia ICD Codes: D64.9 - Anemia, unspecified SNOMED: 895820533 Assessment/Plan: s/p EGD gastric ulcer on ppi npo fu H&H TF Inder Mccauley MD Mar 08, 2020 11:01
--- NOTE | 2020-03-08 11:27 | Nephrology Progress Note ---
Assessment/Plan Problem List: (1) Renal failure (ARF), acute on chronic (2) Anemia (3) Hyponatremia (4) Respiratory failure Assessment (1) JAVIER (acute kidney injury) (2) Renal failure (ARF), acute on chronic (3) Feeding by G-tube (4) Tracheostomy in place (5) Electrolyte imbalance, hyponatremia (6) Anemia, severe (7) Respiratory failure, acute and chronic (8) history of elevated lipase, pancreatitis (9) Elevated troponin I (10) Sepsis Plan March 08: Labs reviewed. Will order dialysis today. Blood sugar low. D10 50 cc an hour started. Continue as is. March 07: Labs reviewed. Dialyzed March 05 and March 06. Continue to monitor renal parameters and hemoglobin. Abnormal electrolytes addressed. IV fluids stopped. Per orders. March 06: Labs reviewed. Dialyzed yesterday. Will reorder dialysis for today. Continue to monitor renal parameters. Hemoglobin 8.4. Patient full code. March 05: Labs reviewed. Patient did not receive dialysis until this morning. Proceed with dialysis. Continue to monitor renal parameters and hemoglobin and hematocrit. March 04: Labs reviewed. Hemoglobin lower. Patient actively bleeding. Was not dialyzed yesterday. Due for GI endoscopy. Continue fluid challenge. Transfusion as needed. Dialysis today. March 03: Labs reviewed. Dialysis ordered. Blood pressure medication all discontinued due to hypotensive state. Albumin bolus given. Continue to monitor renal parameters. Medication list reviewed. Midodrin for low blood pressure ordered Subjective ROS Limited/Unobtainable: Yes Objective Objective Last 24 Hour Vital Signs Date Time Temp Pulse Resp B/P (MAP) Pulse Ox O2 Delivery O2 Flow Rate FiO2 03/08/20 08:00 Mechanical Ventilator 03/08/20 08:00 40 03/08/20 08:00 97.0 63 22 150/64 (92) 100 03/08/20 07:39 65 03/08/20 04:03 Mechanical Ventilator 03/08/20 04:02 40 03/08/20 04:00 96.4 66 24 153/58 (89) 99 03/08/20 04:00 56 03/08/20 03:56 59 20 40 03/08/20 00:00 57 03/08/20 00:00 96.3 52 22 110/60 (77) 99 03/08/20 00:00 Mechanical Ventilator 03/07/20 23:18 52 15 40 03/07/20 20:15 96.5 44 14 110/44 (66) 99 03/07/20 20:00 Mechanical Ventilator 03/07/20 20:00 43 03/07/20 20:00 40 03/07/20 19:43 41 14 40 03/07/20 16:00 Mechanical Ventilator 03/07/20 16:00 40 03/07/20 16:00 65 03/07/20 16:00 96.1 47 18 111/47 (68) 99 03/07/20 15:40 49 14 40 03/07/20 12:00 97.2 73 18 93/49 (64) 95 03/07/20 12:00 Mechanical Ventilator 03/07/20 12:00 65 03/07/20 12:00 40 03/07/20 11:50 51 16 40 Intake and Output 03/07/20 03/08/20 19:00 07:00 Intake Total 520 ml Balance 520 ml Intake Free Water 60 ml IV Total 110 ml Tube Feeding 350 ml # Bowel Movements 1 Current Medications Medications (Trade) Dose Ordered Sig/Penny Route PRN Reason Start Time Stop Time Status Last Admin Dose Admin Acetaminophen (Tylenol) 650 mg Q6H PRN GT Mild Pain (Pain Scale 1-3) 03/02/20 22:30 04/01/20 22:29 Acetaminophen (Tylenol) 650 mg Q6H PRN GT Temp >100.5 03/03/20 03:00 04/01/20 22:29 Aspirin (ASA) 81 mg DAILY GT 03/07/20 09:00 04/21/20 08:59 03/08/20 08:31 Barium Sulfate (Readi-Cat 2) 450 ml NOW PRN ORAL Radiology Procedure 03/08/20 10:15 03/10/20 10:14 Ceftazidime/ Avibactam 0.94 gm/ Dextrose 110 ml @ 110 mls/hr Q12HR IV 03/06/20 13:00 03/13/20 12:59 03/08/20 08:30 Chlorhexidine Gluconate (Ling-Hex 2%) 1 applic DAILY@2000 TOPIC 03/03/20 20:00 06/01/20 19:59 03/07/20 21:28 Hydralazine HCl (Apresoline) 25 mg Q6H PRN GT For High Blood Pressure 03/02/20 22:00 05/31/20 21:59 Iohexol (OMNIPAQUE-300 100ml) 100 ml NOW PRN INJ Radiology Procedure 03/08/20 10:15 03/10/20 10:14 Loperamide HCl (Imodium) 2 mg Q6H PRN GT Diarrhea 03/06/20 12:45 04/05/20 12:44 03/06/20 13:01 Metoclopramide HCl (Reglan) 5 mg Q8HR IVP 03/04/20 11:45 04/03/20 11:44 03/08/20 05:08 Micafungin Sodium 100 mg/Sodium Chloride 110 ml @ 110 mls/hr Q24H IVPB 03/06/20 11:00 03/13/20 10:59 03/07/20 11:16 Midodrine (Pro-Amatine) 10 mg THREE TIMES A DAY GT 03/04/20 13:00 06/01/20 12:59 03/08/20 08:31 Pantoprazole (Protonix) 40 mg EVERY 12 HOURS IVP 03/04/20 21:00 04/02/20 20:59 03/08/20 08:30 Polyethylene Glycol (Miralax) 17 gm BEDTIME PRN GT Constipation 03/02/20 22:00 04/01/20 21:59 Pravastatin Sodium (Pravachol) 20 mg BEDTIME GT 03/07/20 21:00 04/06/20 20:59 03/07/20 21:28 Sodium Hypochlorite (Dakin's Quarter Strength) 1 applic DAILY TOPIC 03/04/20 09:00 04/03/20 08:59 03/08/20 09:08 Tobramycin Protocol (Tobramycin pharmacy to dose) 1 ea DAILY PRN MISC Per rx protocol 03/06/20 09:15 04/05/20 09:14 Tobramycin Sulfate 80 mg/ Sodium Chloride 55 ml @ 110 mls/hr POSTHD IV 03/06/20 12:00 03/13/20 11:59 Vancomycin HCl (Vanco pharmacy to dose) 1 ea DAILY PRN MISC Per rx protocol 03/03/20 09:15 04/02/20 09:14 Laboratory Tests 03/08/20 06:05: White Blood Count 36.8*H, Red Blood Count 2.65L, Hemoglobin 8.1L, Hematocrit 22.9L, Mean Corpuscular Volume 87, Mean Corpuscular Hemoglobin 30.5, Mean Corpu scular Hemoglobin Concent 35.3, Red Cell Distribution Width 14.5, Platelet Count 112L, Mean Platelet Volume 7.2, Neutrophils (%) (Auto) , Lymphocytes (%) (Auto) , Monocytes (%) (Auto) , Eosinophils (%) (Auto) , Basophils (%) (Auto) , D ifferential Total Cells Counted 100, Neutrophils % (Manual) 91H, Lymphocytes % (Manual) 6L, Monocytes % (Manual) 3, Eosinophils % (Manual) 0, Basophils % (Manual) 0, Band Neutrophils 0, Platelet Estimate DecreasedL, Platelet Morphology Normal, Polychromasia 1+, Hypochromasia 1+, Anisocytosis 1+, Sodium Level 143, Potassium Level 3.8, Chloride Level 106, Carbon Dioxide Level 21, Anion Gap 17H, Blood Urea Nitrogen 123H, Creatinine 2.8H, Estimat Glomerular Filtration Rate 18.1, Glucose Level 26*L, Calcium Level 6.9L, Phosphorus Level 7.6H, Magnesium Level 2.2, Total Bilirubin 0.4, Aspartate Amino Transf (AST/SGOT) 40H, Alanine Aminotransferase (ALT/SGPT) 18, Alkaline Phosphatase 169H, C-Reactive Protein, Quantitative 4.8H, Pro-B-Type Natriuretic Peptide > 68554I, Total Protein 5.9L, Albumin 2.5L, Globulin 3.4, Albumin/Globulin Ratio 0.7L Height (Feet): 5 Height (Inches): 3.00 Weight (Pounds): 128 General Appearance: no apparent distress EENT: other - Trach to vent Cardiovascular: normal rate Respiratory/Chest: decreased breath sounds Abdomen: distended Johnny Houston MD Mar 08, 2020 11:27
--- NOTE | 2020-03-08 11:36 | NUR ---
NURSE NOTES: Seen by Dr. Pack. She told RN if CT abd/pelvis cannot be done today to make sure tomorrow morning, MD doesn't want STAT. Orders noted.
[2020-03-08] MEDS: Micafungin 100 MG in NS 110 ML IVPB SCH (11:44)
[2020-03-08 12:00] VITALS: BP 132/92
--- NOTE | 2020-03-08 12:10 | NUR ---
NURSE NOTES: Seen by Dr. Houston and ordered D10W due to low glucose and also pt. will have HD today. Spoke to Young RN that she will do her in the evening. Will cont. to monitor.
[2020-03-08] MEDS: Dextrose 10% 1,000 ML IV SCH (13:26)
[2020-03-08 16:00] VITALS: BP 134/79
--- NOTE | 2020-03-08 17:05 | Cardiology Progress Note ---
Subjective DATE OF SERVICE: Mar 08, 2020 Occasional episodes of sinus bradycardia mostly during sleep; asymptomatic. Heart rates 65-81 during day. BP parameters stable. Objective Last 24 Hour Vital Signs Date Time Temp Pulse Resp B/P (MAP) Pulse Ox O2 Delivery O2 Flow Rate FiO2 03/08/20 16:00 96.6 81 22 134/79 (97) 95 03/08/20 16:00 Mechanical Ventilator 03/08/20 16:00 40 03/08/20 15:27 87 03/08/20 12:00 Mechanical Ventilator 03/08/20 12:00 40 03/08/20 12:00 97.7 72 21 132/92 (105) 95 03/08/20 11:51 84 03/08/20 08:00 Mechanical Ventilator 03/08/20 08:00 40 03/08/20 08:00 97.0 63 22 150/64 (92) 100 03/08/20 07:39 65 03/08/20 04:03 Mechanical Ventilator 03/08/20 04:02 40 03/08/20 04:00 96.4 66 24 153/58 (89) 99 03/08/20 04:00 56 03/08/20 03:56 59 20 40 03/08/20 00:00 57 03/08/20 00:00 96.3 52 22 110/60 (77) 99 03/08/20 00:00 Mechanical Ventilator 03/07/20 23:18 52 15 40 03/07/20 20:15 96.5 44 14 110/44 (66) 99 03/07/20 20:00 Mechanical Ventilator 03/07/20 20:00 43 03/07/20 20:00 40 03/07/20 19:43 41 14 40 HEENT: Thin Trach secretions RHYTHM: NSR, SB LUNGS: bilateral rhonchi - few, trach site clean CARDIAC: normal rate, regular rhythm, normal S1 and S2 ABDOMEN: normal bowel sounds, non tender, soft, G-Tube intact EXTREMITIES: normal range of motion, non-tender, normal inspection Laboratory Tests Test 03/08/20 06:05 White Blood Count 36.8 K/UL (4.8-10.8) *H Red Blood Count 2.65 M/UL (4.20-5.40) L Hemoglobin 8.1 G/DL (12.0-16.0) L Hematocrit 22.9 % (37.0-47.0) L Mean Corpuscular Volume 87 FL (80-99) Mean Corpuscular Hemoglobin 30.5 PG (27.0-31.0) Mean Corpuscular Hemoglobin Concent 35.3 G/DL (32.0-36.0) Red Cell Distribution Width 14.5 % (11.6-14.8) Platelet Count 112 K/UL (150-450) L Mean Platelet Volume 7.2 FL (6.5-10.1) Neutrophils (%) (Auto) % (45.0-75.0) Lymphocytes (%) (Auto) % (20.0-45.0) Monocytes (%) (Auto) % (1.0-10.0) Eosinophils (%) (Auto) % (0.0-3.0) Basophils (%) (Auto) % (0.0-2.0) Differential Total Cells Counted 100 Neutrophils % (Manual) 91 % (45-75) H Lymphocytes % (Manual) 6 % (20-45) L Monocytes % (Manual) 3 % (1-10) Eosinophils % (Manual) 0 % (0-3) Basophils % (Manual) 0 % (0-2) Band Neutrophils 0 % (0-8) Platelet Estimate Decreased L Platelet Morphology Normal Polychromasia 1+ Hypochromasia 1+ Anisocytosis 1+ Sodium Level 143 MMOL/L (136-145) Potassium Level 3.8 MMOL/L (3.5-5.1) Chloride Level 106 MMOL/L (98-107) Carbon Dioxide Level 21 MMOL/L (21-32) Anion Gap 17 mmol/L (5-15) H Blood Urea Nitrogen 123 mg/dL (7-18) H Creatinine 2.8 MG/DL (0.55-1.30) H Estimat Glomerular Filtration Rate 18.1 mL/min (>60) Glucose Level 26 MG/DL (74-106) *L Calcium Level 6.9 MG/DL (8.5-10.1) L Phosphorus Level 7.6 MG/DL (2.5-4.9) H Magnesium Level 2.2 MG/DL (1.8-2.4) Total Bilirubin 0.4 MG/DL (0.2-1.0) Aspartate Amino Transf (AST/SGOT) 40 U/L (15-37) H Alanine Aminotransferase (ALT/SGPT) 18 U/L (12-78) Alkaline Phosphatase 169 U/L (46-116) H C-Reactive Protein, Quantitative 4.8 mg/dL (0.00-0.90) H Pro-B-Type Natriuretic Peptide > 03492 pg/mL (0-125) H Total Protein 5.9 G/DL (6.4-8.2) L Albumin 2.5 G/DL (3.4-5.0) L Globulin 3.4 g/dL Albumin/Globulin Ratio 0.7 (1.0-2.7) L Microbiology Date/Time Source Procedure Growth Status 03/06/20 09:55 Blood Blood Culture - Preliminary Gram Negative Arnaud Gram Positive Cocci Resulted 03/06/20 09:45 Blood Blood Culture - Preliminary Gram Negative Arnaud Resulted Assessment/Plan Assessment/Plan Sepsis with recovered shock Sinus node disease with bradycardia Hx pacemaker explant Ischemic cardiomyopathy - hx CABG Paroxysmal Atrial Fib Respiratory failure with trach alarm security or surveillance monitor Vent support Monitor and replace lytes Antimicrobials DVT prophyl Avoiding all meds with negative chronotropic potential No urgent indication for pacemaker in bedbound patient Deni Willams MD Mar 08, 2020 17:05
--- NOTE | 2020-03-08 17:55 | NUR ---
NURSE NOTES: Pt. starting HD. V/S WNL.
--- NOTE | 2020-03-08 18:36 | NUR ---
NURSE NOTES: Called and left message to Fely (mother) at . Awaiting for response.
--- NOTE | 2020-03-08 19:25 | General Progress Note ---
Subjective Constitutional: Reports: no symptoms HEENT: Reports: no symptoms Cardiovascular: Reports: no symptoms Respiratory: Reports: no symptoms Gastrointestinal/Abdominal: Reports: no symptoms Genitourinary: Reports: no symptoms Neurologic/Psychiatric: Reports: no symptoms Endocrine: Reports: no symptoms Hematologic/Lymphatic: Reports: no symptoms Allergies: Coded Allergies: No Known Allergies (Unverified , 10/10/17) Objective Last 24 Hour Vital Signs Date Time Temp Pulse Resp B/P (MAP) Pulse Ox O2 Delivery O2 Flow Rate FiO2 03/08/20 16:00 96.6 81 22 134/79 (97) 95 03/08/20 16:00 Mechanical Ventilator 03/08/20 16:00 40 03/08/20 15:27 87 03/08/20 13:40 50 29 40 03/08/20 12:00 Mechanical Ventilator 03/08/20 12:00 40 03/08/20 12:00 97.7 72 21 132/92 (105) 95 03/08/20 11:51 84 03/08/20 08:00 Mechanical Ventilator 03/08/20 08:00 40 03/08/20 08:00 97.0 63 22 150/64 (92) 100 03/08/20 07:40 66 28 40 03/08/20 07:39 65 03/08/20 04:03 Mechanical Ventilator 03/08/20 04:02 40 03/08/20 04:00 96.4 66 24 153/58 (89) 99 03/08/20 04:00 56 03/08/20 03:56 59 20 40 03/08/20 00:00 57 03/08/20 00:00 96.3 52 22 110/60 (77) 99 03/08/20 00:00 Mechanical Ventilator 03/07/20 23:18 52 15 40 03/07/20 20:15 96.5 44 14 110/44 (66) 99 03/07/20 20:00 Mechanical Ventilator 03/07/20 20:00 43 03/07/20 20:00 40 03/07/20 19:43 41 14 40 Intake and Output 03/07/20 03/08/20 19:00 07:00 Intake Total 555 ml Balance 555 ml Intake Free Water 60 ml IV Total 110 ml Tube Feeding 385 ml # Bowel Movements 1 Laboratory Tests 03/08/20 06:05: White Blood Count 36.8*H, Red Blood Count 2.65L, Hemoglobin 8.1L, Hematocrit 22.9L, Mean Corpuscular Volume 87, Mean Corpuscular Hemoglobin 30.5, Mean Corpuscular Hemoglobin Concent 35.3, Red Cell Distribution Width 14.5, Platelet Count 112L, Mean Platelet Volume 7.2, Neutrophils (%) (Auto) , Lymphocytes (%) (Auto) , Monocytes (%) (Auto) , Eosinophils (%) (Auto) , Basophils (%) (Auto) , Differential Total Cells Counted 100, Neutrophils % (Manual) 91H, Lymphocytes % (Manual) 6L, Monocytes % (Manual) 3, Eosinophils % (Manual) 0, Basophils % (Manual) 0, Band Neutrophils 0, Platelet Estimate DecreasedL, Platelet Morphology Normal, Polychromasia 1+, Hypochromasia 1+, Anisocytosis 1+, Sodium Level 143, Potassium Level 3.8, Chloride Level 106, Carbon Dioxide Level 21, Anion Gap 17H, Blood Urea Nitrogen 123H, Creatinine 2.8H, Estimat Glomerular Filtration Rate 18.1, Glucose Level 26*L, Calcium Level 6.9L, Phosphorus Level 7.6H, Magnesium Level 2.2, Total Bilirubin 0.4, Aspartate Amino Transf (AST/SGOT) 40H, Alanine Aminotransferase (ALT/SGPT) 18, Alkaline Phosphatase 169H, C-Reactive Protein, Quantitative 4.8H, Pro-B-Type Natriuretic Peptide > 21652B, Total Protein 5.9L, Albumin 2.5L, Globulin 3.4, Albumin/Globulin Ratio 0.7L Height (Feet): 5 Height (Inches): 3.00 Weight (Pounds): 128 General Appearance: WD/WN, no apparent distress, alert EENT: normal ENT inspection Neck: supple Cardiovascular: normal rate, regular rhythm, no gallop/murmur, no JVD Respiratory/Chest: no respiratory distress, no accessory muscle use, decreased breath sounds, rhonchi - left Abdomen: normal bowel sounds, non tender, soft, no organomegaly, no mass Extremities: non-tender Edema: 2+ Leg (L), 2+ Leg (R), 2+ Pedal (L), 2+ Pedal (R) Edema: mild edema Neurologic: alert, responsive, aphasia Assessment/Plan Status Narrative Patient is awake alert febrile hemodynamically stable bradycardia noted with a problem for the last 2 days resolved her heart rate now is being 80-90 she is undergoing dialysis today she is attentive with normal attention span but no verbal response to blood culture became positive yesterday 1 grew gram-negative juan carlos days ago, gram-negative rods plus gram-positive cocci each of them 1 out of 2 days tubes new blood culture will be ordered today continue to be on IV case 500 every 12 and tobramycin potassium level and micafungin 1 mg IV piggyback every 24 hours mentally in the last 2 days she is very clear she does not have cardiac arrhythmia and does not complain of shortness of breath of volume overload and BNP marker of more than 35,000 Basil laboratory tests will be done in a.m. Lucas Vera MD, MD Mar 08, 2020 19:25
--- NOTE | 2020-03-08 19:26 | NUR ---
NURSE HAND-OFF REPORT: Important Events on Shift:Pt currently having HD. Patient Status: stable Diet: Nephro GT Pending Orders: x Pending Results/Labs:x Pending MD notification: Latest Vital Signs: Temperature 96.6 , Pulse 81 , B/P 134 /79 , Respiratory Rate 22 , O2 SAT 95 , Mechanical Ventilator, O2 Flow Rate . Vital Sign Comment: wnl EKG Rhythm: Sinus Rhythm Rhythm change?: N MD Notified?: N -Dr Екатерина HATFIELD Response: No New Orders Received Latest Chavarria Fall Score: 50 Fall Risk: High Risk Safety Measures: Call light Within Reach, Bed Alarm Zone 1, Side Rails Side Rails x2, Bed position Low and Locked. Fall Precautions: Yellow Socks Report given to Swathi ZIMMERMAN.
--- NOTE | 2020-03-08 19:27 | NUR ---
NURSE NOTES: Received report from ERASMO Valencia. Upon assessment pt is smiling, alert, pleasant mood. Vent dependent. Undergoing HD at the moment. Vitals stable, afebrile. Saturating 100% on prescribed settings. 5-lead EKG shows SR. Nepro running at 35 via g-tube with 0 residual. Made aware of plan of care for CT abdomen with contrast; pending consent. Bed kept in lowest and locked position. Side rails up x3. Call light within reach. Will monitor.
[2020-03-08 20:00] VITALS: BP 145/69
--- NOTE | 2020-03-08 20:00 | NUR ---
NURSE NOTES: HD compete with 0L out. Dr. Dong at bedside. No new orders endorsed.
--- NOTE | 2020-03-08 21:00 | NUR ---
NURSE NOTES: Mother, Fely, not responding to calls/messages. Consent for CT Ab with contrast by Sister FRANCISCO with 2nd RN, , to witness. No distress noted. Will monitor.
[2020-03-08] MEDS: Dyna-Hex 2% Top Sol 2oz TOPIC SCH (22:00)
[2020-03-09] VITALS: BP 141/74
--- NOTE | 2020-03-09 03:39 | NUR ---
NURSE NOTES: Placed patient on NPO for CT in AM. Bed bath and oral care provided. Will monitor.
[2020-03-09 04:00] VITALS: BP 130/67
[2020-03-09] MEDS: Metoclopramide 10mg/2ml Inj IVP SCH ×3 (05:27→21:30)
[2020-03-09 06:29] LABS: HEMOGLOBIN 8.1 G/DL (12.0-16.0); MEAN CORPUSCULAR VOLUME 89 FL (80-99); PLATELET COUNT 91 K/UL (150-450); RED CELL DISTRIBUTION WIDTH 15.6 % (11.6-14.8)
[2020-03-09 06:50] LABS: WHITE BLOOD COUNT 31.6 K/UL (4.8-10.8)
--- NOTE | 2020-03-09 07:00 | NUR ---
NURSE NOTES: Received patient report from ERASMO Mancilla. Patient is AO x3, in bed asleep. Patient with GT, patent and intact. Patient on trach to vent Shiley 7 AC 14 VT 500 FiO2 40% PEEP 5. Breathing is even and unlabored with no signs of respiratory distress. No pain or discomfort noted at this time. Bed in lowest position, locked with side rails x2 up. Call light within reach at all times.
--- NOTE | 2020-03-09 07:30 | NUR ---
NURSE NOTES: Large amount of bloody stool noted. Bed bath provided.
--- NOTE | 2020-03-09 07:38 | NUR ---
NURSE HAND-OFF REPORT: Important Events on Shift: Bloody Stool; CT ABD TODAY Patient Status: Diet: NPO for CT Pending Orders: Pending Results/Labs: Pending MD notification: Latest Vital Signs: Temperature 98.1 , Pulse 87 , B/P 130 /67 , Respiratory Rate 18 , O2 SAT 100 , Mechanical Ventilator, O2 Flow Rate . Vital Sign Comment: WNL EKG Rhythm: Sinus Rhythm Rhythm change?: N MD Notified?: N -Dr Екатерина HATFIELD Response: No New Orders Received Latest Chavarria Fall Score: 50 Fall Risk: High Risk Safety Measures: Call light Within Reach, Bed Alarm Zone 1, Side Rails Side Rails x3, Bed position Low and Locked. Fall Precautions: Yellow Socks Report given to ERASMO Ang.
[2020-03-09 08:00] VITALS: BP 138/80
--- NOTE | 2020-03-09 08:24 | Infectious Diseases Prog Note ---
Assessment/Plan 49yo F with: AMS Anemia to 1.9 on admission 03/02 Leukocytosis to 40 GPC bacteremia UTI Possible pna Hypotension 03/02 BCx 1/2 +Staph epi, 1/ +Staph haemolyticus (m/l skin colonizers) UA+, UCx >100k P.stuartii (S-angelo) & CRE P.mirablis (R-polyB/colistin, S- tobramycin) COVID rapid neg, PCR neg CXR: Tracheostomy again demonstrated. Interim placement of a right jugular tunneled dialysis catheter. There is infiltrate and volume loss in the left claire g, particularly in the perihilar region, suprahilar region, and base. Consolidation at the lung base is similar. The perihilar and suprahilar region consolidation is new. The right lung pleural space are clear. C.dif neg 03/03 BCx NTD 03/06 BCx /2 + GNR, 2 +GNR & GPC 03/08 BCx ordered AF Sepsis Leukocytosis Hypoxia on vent Pneumonia c/b L pleural effusion (recurrent, prior determined to be transudative) - s/p thora 01/21, 1050cc removed Volume overload, BNP >35,0000, likely 2/2 progressive CKD --> ESRD ?Pancreatitis, Lipase >2000 Acute anemia to 5s CONS bacteremia, ?contaminant Aflutter w/ RVR 01/13 BCx 2/2 +S. epi COVID PCR neg Flu neg CXR: Large left pleural effusion. Bilateral interstitial and airspace infiltrates versus edema MRSA nares neg 01/16 BCx NTD 01/17 BCx 1/2 +Staph auricularis (skin colonizer) 01/18 Resp cx +MDR CRE PsA (S-gent, I-colistin, R-polyB) 01/18 C.dif neg 01/18 CXR: Similar opacification of the left hemithorax likely representing combination of pleural effusion with atelectasis versus pneumonia/edema. Decreased but persistent hazy opacity throughout the right lung may represent edema versus infectious/inflammatory process. 01/20 BCx NTD 01/21 L thora 1050 cc removed, cx NTD 01/25 Wound cx from Gtube site +CRE Kleb pna (arnett-R) and MDR PsA (colonizers) 01/26 CT A/P: Limited exam, due to severe diffuse anasarca. Ascites. Bilateral pleural effusions. Basilar pulmonary atelectatic changes and consolidation. Gastrostomy. Atrophic left kidney with a nephroureteral stents again demonstrated. Possible retrococcygeal decubitus changes. Correlate with clinical findings, consider MRI if there is concern for sacral osteomyelitis. Right hip intertrochanteric fracture, also previously demonstrated. Left femoral dialysis catheter. Nonspecific right lobe liver lesion is unchanged, not well- demonstrated. ctasia bordering on aneurysmal dilatation and possible chronic dissection of the distal thoracic aorta, also previously described. JAVIER on CKD On previous admission Sep-Oct 2019 required HD for short period Going to start HD this admission again R/o COVID 01/14 COVID PCR neg 12/29 neg at SN[facility] per report H/o UTI 11/27 u/a wbc 30-40, nit neg, leuk +3; ucx ESBL P. mirablis, ESBL M. morganii 09/15/19 u/a wbc tnct, nit neg, leuk +3; ucx >100k MDR P. stuarti (S Ceftriax one, Meropenem) 10/07 u/a wbc tnct, nit neg, leuk ; ucx >100k VRE 10/15/19 u/a wbc tnct; ucx >100k ESBL P. stuarti (S ertapenem, aztreonam) H/o transudative pleural effusion 11/28 Sp Thora (w: 169, PMN: 2%, L: 49% , LDH: 57, prot 2.5); cx Neg H/o PNA 10/15/19 Resp cx ESBL P. mirabilis, MDR P.a. (S only to Gent) 09/22 Resp cx + MDR PsA (S-gent; I-colistin; R-levofloxacin, Zosyn, angelo) 09/16/19 Sp cx ESBL P. mirablis H/o PPM site (pocket) infection and pocket abscess 2ry to S. epi-11/2018, sp >6weeks IV vancomycin 11/27 SP ABBIE: no evidence for vegetation on any of the valves 11/26/18 SP PPM removal: OR findings:The fibrous capsule enclosing the generator was then opened and there was a [id number] amount of yellowish fluid drainage. The generator was then removed.Atrial and ventricular leads were detached. The necrotic tissue of the pocket was then removed and the pocket was flushed with an antibiotic solution. Capsule, wound tissue and lead tip cx: Neg 2d echo: no vegetation seen US chest: 4.6 x 3.4 x 0.9 cm hypoechoic/anechoic area overlying left chest pacemaker power pack. This could represent either a discrete fluid collection or a focal area of very edematous tissue. Infected fluid pocket also possible. 11/18 Bcx 3/4 S. epi; 11/20 Bcx neg; 11/24 Bcx Neg; 11/27 Bcx Neg CAD s/p CABG GERD/gastritis Afib HTN Dysphagia sp GT Aortic dissection s/p repair 2018 S/p PPM Parkinson's Disease Schizophrenia Anxiety COPD Chronic resp failure s/p trach Hx of tracheal bleeding OR resident ([facility]) VRE and MRSA colonized Plan: Cont vanco IV #8 given CONS bacteremia/sepsis Cont tobramycin #4 per Pharmacy given UCx results Cont Avycaz #4 given worsening sepsis, arnett-R organism in UCx Cont micafungin #4 empiric for possible fungal sepsis given GIB, could have fungal translocation, takes some time to grow on BCx F/u CT chest/Abd/Pelvis given ongoing sepsis, unclear source If imaging without clear source for infection, then will need line removal/h oliday F/u 03/08 repeat BCx F/u 03/06 BCx +GNRs, GPCs D/w Micro lab about obtaining UCx sensi to Avycaz/Zerbaxa, f/u results Trend Hg, GIB Trend BP, WBC 01/31 SP angelo/inh tobra #10 for pna 01/23 SP vanco IV #10 given CONS/GPC bacteremia 01/16 SP Zosyn #2 01/14 SP dex 10mg in ED 12/10 SP IV Gentamycin #10 12/07 SP Meropenem #10 12/01 SP IV Vancomycin #5 11/28 Sp Cefepime #2 and IV Gentamycin x1 Monitor CBC/CMP Monitor temp curve, hemodynamics Monitor resp status D/w RN Thank you for this consult. [facility] will continue to follow. Subjective Allergies: Coded Allergies: No Known Allergies (Unverified , 10/10/17) AF WBC slightly improved to 31 Remains on vent, not interactive Hg stable Objective Last 24 Hour Vital Signs Date Time Temp Pulse Resp B/P (MAP) Pulse Ox O2 Delivery O2 Flow Rate FiO2 03/09/20 08:00 97.4 90 20 138/80 (99) 95 03/09/20 04:00 98.1 87 18 130/67 (88) 100 03/09/20 04:00 Mechanical Ventilator 03/09/20 04:00 40 03/09/20 04:00 83 03/09/20 03:27 84 24 40 03/09/20 00:00 97.7 82 19 141/74 (96) 100 03/09/20 00:00 40 03/09/20 00:00 Mechanical Ventilator 03/08/20 23:34 86 28 40 03/08/20 20:00 Mechanical Ventilator 03/08/20 20:00 97.9 87 18 145/69 (94) 100 03/08/20 20:00 92 03/08/20 19:44 91 29 40 03/08/20 16:00 96.6 81 22 134/79 (97) 95 03/08/20 16:00 Mechanical Ventilator 03/08/20 16:00 40 03/08/20 15:27 87 03/08/20 13:40 50 29 40 03/08/20 12:00 Mechanical Ventilator 03/08/20 12:00 40 03/08/20 12:00 97.7 72 21 132/92 (105) 95 03/08/20 11:51 84 Height (Feet): 5 Height (Inches): 3.00 Weight (Pounds): 128 Gen: NAD HEENT: NCAT, trach Pulm: BL chest rise on vent Abd: Soft, NTND, +PEG Ext: No c/c/e Skin: No visible rashes Neuro: Awake, minimally interactive Lines: R chest Permacath dressing c/d/i Microbiology Date/Time Source Procedure Growth Status 03/06/20 09:55 Blood Blood Culture - Preliminary Gram Negative Arnaud Gram Positive Cocci Resulted 03/06/20 09:45 Blood Blood Culture - Preliminary Gram Negative Arnaud Resulted Laboratory Tests Test 03/09/20 04:31 03/09/20 05:53 White Blood Count 31.6 K/UL (4.8-10.8) *H Red Blood Count 2.70 M/UL (4.20-5.40) L Hemoglobin 8.1 G/DL (12.0-16.0) L Hematocrit 24.0 % (37.0-47.0) L Mean Corpuscular Volume 89 FL (80-99) Mean Corpuscular Hemoglobin 30.2 PG (27.0-31.0) Mean Corpuscular Hemoglobin Concent 33.9 G/DL (32.0-36.0) Red Cell Distribution Width 15.6 % (11.6-14.8) H Platelet Count 91 K/UL (150-450) L Mean Platelet Volume 7.2 FL (6.5-10.1) Neutrophils (%) (Auto) % (45.0-75.0) Lymphocytes (%) (Auto) % (20.0-45.0) Monocytes (%) (Auto) % (1.0-10.0) Eosinophils (%) (Auto) % (0.0-3.0) Basophils (%) (Auto) % (0.0-2.0) Differential Total Cells Counted 100 Neutrophils % (Manual) 88 % (45-75) H Lymphocytes % (Manual) 10 % (20-45) L Monocytes % (Manual) 2 % (1-10) Eosinophils % (Manual) 0 % (0-3) Basophils % (Manual) 0 % (0-2) Band Neutrophils 0 % (0-8) Platelet Estimate Decreased L Platelet Morphology Normal Hypochromasia 1+ Random Vancomycin Level 17.3 ug/mL POC Whole Blood Glucose 94 MG/DL (74-106) Current Medications Medications (Trade) Dose Ordered Sig/Penny Route PRN Reason Start Time Stop Time Status Last Admin Dose Admin Acetaminophen (Tylenol) 650 mg Q6H PRN GT Mild Pain (Pain Scale 1-3) 03/02/20 22:30 04/01/20 22:29 Acetaminophen (Tylenol) 650 mg Q6H PRN GT Temp >100.5 03/03/20 03:00 04/01/20 22:29 Aspirin (ASA) 81 mg DAILY GT 03/07/20 09:00 04/21/20 08:59 03/08/20 08:31 Barium Sulfate (Readi-Cat 2) 450 ml NOW PRN ORAL Radiology Procedure 03/08/20 10:15 03/10/20 10:14 Ceftazidime/ Avibactam 0.94 gm/ Dextrose 110 ml @ 110 mls/hr Q12HR IV 03/06/20 13:00 03/13/20 12:59 03/08/20 22:19 Chlorhexidine Gluconate (Ling-Hex 2%) 1 applic DAILY@1999 TOPIC 03/03/20 20:00 06/01/20 19:59 03/08/20 22:00 Dextrose 1,000 ml @ 50 mls/hr Q20H IV 03/08/20 13:00 04/07/20 12:59 03/08/20 13:26 Hydralazine HCl (Apresoline) 25 mg Q6H PRN GT For High Blood Pressure 03/02/20 22:00 05/31/20 21:59 Iohexol (OMNIPAQUE-300 100ml) 100 ml NOW PRN INJ Radiology Procedure 03/08/20 10:15 03/10/20 10:14 Loperamide HCl (Imodium) 2 mg Q6H PRN GT Diarrhea 03/06/20 12:45 04/05/20 12:44 03/06/20 13:01 Metoclopramide HCl (Reglan) 5 mg Q8HR IVP 03/04/20 11:45 04/03/20 11:44 03/09/20 05:27 Micafungin Sodium 100 mg/Sodium Chloride 110 ml @ 110 mls/hr Q24H IVPB 03/06/20 11:00 03/13/20 10:59 03/08/20 11:44 Midodrine (Pro-Amatine) 10 mg THREE TIMES A DAY GT 03/04/20 13:00 06/01/20 12:59 03/08/20 13:25 Pantoprazole (Protonix) 40 mg EVERY 12 HOURS IVP 03/04/20 21:00 04/02/20 20:59 03/08/20 22:01 Polyethylene Glycol (Miralax) 17 gm BEDTIME PRN GT Constipation 03/02/20 22:00 04/01/20 21:59 Pravastatin Sodium (Pravachol) 20 mg BEDTIME GT 03/07/20 21:00 04/06/20 20:59 03/08/20 22:00 Sodium Hypochlorite (Dakin's Quarter Strength) 1 applic DAILY TOPIC 03/04/20 09:00 04/03/20 08:59 03/08/20 09:08 Tobramycin Protocol (Tobramycin pharmacy to dose) 1 ea DAILY PRN MISC Per rx protocol 03/06/20 09:15 04/05/20 09:14 Tobramycin Sulfate 80 mg/ Sodium Chloride 55 ml @ 110 mls/hr POSTHD IV 03/06/20 12:00 03/13/20 11:59 Vancomycin HCl (Vanco pharmacy to dose) 1 ea DAILY PRN MISC Per rx protocol 03/03/20 09:15 04/02/20 09:14 Vancomycin HCl 500 mg/Dextrose 110 ml @ 110 mls/hr ONCE ONCE IVPB 03/09/20 12:00 03/09/20 12:59 Ro Pack M.D. Mar 09, 2020 08:24
--- NOTE | 2020-03-09 08:40 | NUR ---
CASE MANAGEMENT:REVIEW 03/09/20 SI: SEPSIS. AC/CHR RENAL FAILURE(WORSENING RENAL FXN) TRACH/VENT/GT 97.4 90 20 138/80 95% ON VENT SUPPORT W/40% FIO2 WBC+31.6 H/H-8.1/24.0 PLT-91 PLT-122 BUN+123 CR+2.8 GLUCOSE-26 IS: IV VANCOMYCIN X1 IV CEFTAZIDIME Q12 IV TOBRAMYCIN IV POST HD IV MICAFUNGIN Q24 IV PROTONIX Q12 IV REGLAN Q8HRS : STEP DOWN UNIT DCP: FROM [facility]
[2020-03-09] MEDS: Dakin's 0.125% Soln (Quarter Strength) 16oz TOPIC SCH (08:43)
[2020-03-09] MEDS: Dextrose 10% 1,000 ML IV SCH (08:43)
[2020-03-09] MEDS: Pantoprazole Inj IVP SCH ×2 (08:43→20:06)
[2020-03-09] MEDS: Aspirin Baby 81mg GT SCH (08:43)
[2020-03-09] MEDS: Midodrine 10mg tab GT SCH ×3 (08:43→17:21)
--- NOTE | 2020-03-09 08:49 | General Progress Note ---
Subjective ROS Limited/Unobtainable: No Allergies: Coded Allergies: No Known Allergies (Unverified , 10/10/17) Objective Last 24 Hour Vital Signs Date Time Temp Pulse Resp B/P (MAP) Pulse Ox O2 Delivery O2 Flow Rate FiO2 03/09/20 08:00 97.4 90 20 138/80 (99) 95 03/09/20 04:00 98.1 87 18 130/67 (88) 100 03/09/20 04:00 Mechanical Ventilator 03/09/20 04:00 40 03/09/20 04:00 83 03/09/20 03:27 84 24 40 03/09/20 00:00 97.7 82 19 141/74 (96) 100 03/09/20 00:00 40 03/09/20 00:00 Mechanical Ventilator 03/08/20 23:34 86 28 40 03/08/20 20:00 Mechanical Ventilator 03/08/20 20:00 97.9 87 18 145/69 (94) 100 03/08/20 20:00 92 03/08/20 19:44 91 29 40 03/08/20 16:00 96.6 81 22 134/79 (97) 95 03/08/20 16:00 Mechanical Ventilator 03/08/20 16:00 40 03/08/20 15:27 87 03/08/20 13:40 50 29 40 03/08/20 12:00 Mechanical Ventilator 03/08/20 12:00 40 03/08/20 12:00 97.7 72 21 132/92 (105) 95 03/08/20 11:51 84 Intake and Output 03/08/20 03/09/20 19:00 07:00 Intake Total 675 ml 1200.1 ml Balance 675 ml 1200.1 ml Intake Free Water 160 ml 180 ml IV Total 200 ml 635.1 ml Tube Feeding 315 ml 385 ml # Bowel Movements 1 2 Laboratory Tests 03/09/20 04:31: White Blood Count 31.6*H, Red Blood Count 2.70L, Hemoglobin 8.1L, Hematocrit 24.0L, Mean Corpuscular Volume 89, Mean Corpuscular Hemoglobin 30.2, Mean Corpuscular Hemoglobin Concent 33.9, Red Cell Distribution Width 15.6H, Platelet Count 91L, Mean Platelet Volume 7.2, Neutrophils (%) (Auto) , Lymphocytes (%) (Auto) , Monocytes (%) (Auto) , Eosinophils (%) (Auto) , Basophils (%) (Auto) , Differential Total Cells Counted 100, Neutrophils % (Manual) 88H, Lymphocytes % (Manual) 10L, Monocytes % (Manual) 2, Eosinophils % (Manual) 0, Basophils % (Ma nual) 0, Band Neutrophils 0, Platelet Estimate DecreasedL, Platelet Morphology Normal, Hypochromasia 1+, Random Vancomycin Level 17.3 03/09/20 05:53: POC Whole Blood Glucose 94 Height (Feet): 5 Height (Inches): 3.00 Weight (Pounds): 128 General Appearance: no apparent distress EENT: normal ENT inspection Neck: supple Cardiovascular: normal rate Respiratory/Chest: decreased breath sounds Abdomen: normal bowel sounds, non tender, soft Extremities: non-tender Assessment/Plan Problem List: (1) Hx of CABG ICD Codes: Z95.1 - Presence of aortocoronary bypass graft SNOMED: 575078288, 279456804 (2) History of tracheostomy ICD Codes: Z98.890 - Other specified postprocedural states SNOMED: 306098139, 690634408 (3) PEG (percutaneous endoscopic gastrostomy) status ICD Codes: Z93.1 - Gastrostomy status SNOMED: 808210183, 848939045 (4) Renal failure ICD Codes: N19 - Unspecified kidney failure SNOMED: 26788078, 105014966 (5) Severe anemia ICD Codes: D64.9 - Anemia, unspecified SNOMED: 888352493 Assessment/Plan: s/p EGD gastric ulcer on ppi fu H&H>>>stable TF Inder Mccauley MD Mar 09, 2020 08:49
--- NOTE | 2020-03-09 09:12 | Nephrology Progress Note ---
Assessment/Plan Problem List: (1) Renal failure (ARF), acute on chronic (2) Anemia (3) Hyponatremia (4) Respiratory failure Assessment (1) JAVIER (acute kidney injury) (2) Renal failure (ARF), acute on chronic (3) Feeding by G-tube (4) Tracheostomy in place (5) Electrolyte imbalance, hyponatremia (6) Anemia, severe (7) Respiratory failure, acute and chronic (8) history of elevated lipase, pancreatitis (9) Elevated troponin I (10) Sepsis Plan March 09: No chemistry panel done today. Patient dialyzed yesterday. On dextrose 10% for hypoglycemia. We will check labs tomorrow. Dialysis as needed. March 08: Labs reviewed. Will order dialysis today. Blood sugar low. D10 50 cc an hour started. Continue as is. March 07: Labs reviewed. Dialyzed March 05 and March 06. Continue to monitor renal parameters and hemoglobin. Abnormal electrolytes addressed. IV fluids stopped. Per orders. March 06: Labs reviewed. Dialyzed yesterday. Will reorder dialysis for today. Continue to monitor renal parameters. Hemoglobin 8.4. Patient full code. March 05: Labs reviewed. Patient did not receive dialysis until this morning. Proceed with dialysis. Continue to monitor renal parameters and hemoglobin and hematocrit. March 04: Labs reviewed. Hemoglobin lower. Patient actively bleeding. Was not dialyzed yesterday. Due for GI endoscopy. Continue fluid challenge. Transfusion as needed. Dialysis today. March 03: Labs reviewed. Dialysis ordered. Blood pressure medication all discontinued due to hypotensive state. Albumin bolus given. Continue to mon itor renal parameters. Medication list reviewed. Midodrin for low blood pressure ordered Subjective ROS Limited/Unobtainable: Yes Objective Objective Last 24 Hour Vital Signs Date Time Temp Pulse Resp B/P (MAP) Pulse Ox O2 Delivery O2 Flow Rate FiO2 03/09/20 08:00 97.4 90 20 138/80 (99) 95 03/09/20 04:00 98.1 87 18 130/67 (88) 100 03/09/20 04:00 Mechanical Ventilator 03/09/20 04:00 40 03/09/20 04:00 83 03/09/20 03:27 84 24 40 03/09/20 00:00 97.7 82 19 141/74 (96) 100 03/09/20 00:00 40 03/09/20 00:00 Mechanical Ventilator 03/08/20 23:34 86 28 40 03/08/20 20:00 Mechanical Ventilator 03/08/20 20:00 97.9 87 18 145/69 (94) 100 03/08/20 20:00 92 03/08/20 19:44 91 29 40 03/08/20 16:00 96.6 81 22 134/79 (97) 95 03/08/20 16:00 Mechanical Ventilator 03/08/20 16:00 40 03/08/20 15:27 87 03/08/20 13:40 50 29 40 03/08/20 12:00 Mechanical Ventilator 03/08/20 12:00 40 03/08/20 12:00 97.7 72 21 132/92 (105) 95 03/08/20 11:51 84 Intake and Output 03/08/20 03/09/20 19:00 07:00 Intake Total 675 ml 1200.1 ml Balance 675 ml 1200.1 ml Intake Free Water 160 ml 180 ml IV Total 200 ml 635.1 ml Tube Feeding 315 ml 385 ml # Bowel Movements 1 2 Current Medications Medications (Trade) Dose Ordered Sig/Penny Route PRN Reason Start Time Stop Time Status Last Admin Dose Admin Acetaminophen (Tylenol) 650 mg Q6H PRN GT Mild Pain (Pain Scale 1-3) 03/02/20 22:30 04/01/20 22:29 Acetaminophen (Tylenol) 650 mg Q6H PRN GT Temp >100.5 03/03/20 03:00 04/01/20 22:29 Aspirin (ASA) 81 mg DAILY GT 03/07/20 09:00 04/21/20 08:59 03/09/20 08:43 Barium Sulfate (Readi-Cat 2) 450 ml NOW PRN ORAL Radiology Procedure 03/08/20 10:15 03/10/20 10:14 Ceftazidime/ Avibactam 0.94 gm/ Dextrose 110 ml @ 110 mls/hr Q12HR IV 03/06/20 13:00 03/13/20 12:59 03/08/20 22:19 Chlorhexidine Gluconate (Ling-Hex 2%) 1 applic DAILY@2000 TOPIC 03/03/20 20:00 06/01/20 19:59 03/08/20 22:00 Dextrose 1,000 ml @ 50 mls/hr Q20H IV 03/08/20 13:00 04/07/20 12:59 03/09/20 08:43 Hydralazine HCl (Apresoline) 25 mg Q6H PRN GT For High Blood Pressure 03/02/20 22:00 05/31/20 21:59 Iohexol (OMNIPAQUE-300 100ml) 100 ml NOW PRN INJ Radiology Procedure 03/08/20 10:15 03/10/20 10:14 Loperamide HCl (Imodium) 2 mg Q6H PRN GT Diarrhea 03/06/20 12:45 04/05/20 12:44 03/06/20 13:01 Metoclopramide HCl (Reglan) 5 mg Q8HR IVP 03/04/20 11:45 04/03/20 11:44 03/09/20 05:27 Micafungin Sodium 100 mg/Sodium Chloride 110 ml @ 110 mls/hr Q24H IVPB 03/06/20 11:00 03/13/20 10:59 03/08/20 11:44 Midodrine (Pro-Amatine) 10 mg THREE TIMES A DAY GT 03/04/20 13:00 06/01/20 12:59 03/09/20 08:43 Pantoprazole (Protonix) 40 mg EVERY 12 HOURS IVP 03/04/20 21:00 04/02/20 20:59 03/09/20 08:43 Polyethylene Glycol (Miralax) 17 gm BEDTIME PRN GT Constipation 03/02/20 22:00 04/01/20 21:59 Pravastatin Sodium (Pravachol) 20 mg BEDTIME GT 03/07/20 21:00 04/06/20 20:59 03/08/20 22:00 Sodium Hypochlorite (Dakin's Quarter Strength) 1 applic DAILY TOPIC 03/04/20 09:00 04/03/20 08:59 03/09/20 08:43 Tobramycin Protocol (Tobramycin pharmacy to dose) 1 ea DAILY PRN MISC Per rx protocol 03/06/20 09:15 04/05/20 09:14 Tobramycin Sulfate 80 mg/ Sodium Chloride 55 ml @ 110 mls/hr POSTHD IV 03/06/20 12:00 03/13/20 11:59 Vancomycin HCl (Vanco pharmacy to dose) 1 ea DAILY PRN MISC Per rx protocol 03/03/20 09:15 04/02/20 09:14 Vancomycin HCl 500 mg/Dextrose 110 ml @ 110 mls/hr ONCE ONCE IVPB 03/09/20 12:00 03/09/20 12:59 Laboratory Tests 03/09/20 04:31: White Blood Count 31.6*H, Red Blood Count 2.70L, Hemoglobin 8.1L, Hematocrit 24.0L, Mean Corpuscular Volume 89, Mean Corpuscular Hemoglobin 30.2, Mean Corpus cular Hemoglobin Concent 33.9, Red Cell Distribution Width 15.6H, Platelet Count 91L, Mean Platelet Volume 7.2, Neutrophils (%) (Auto) , Lymphocytes (%) (Auto) , Monocytes (%) (Auto) , Eosinophils (%) (Auto) , Basophils (%) (Auto) , Differential Total Cells Counted 100, Neutrophils % (Manual) 88H, Lymphocytes % (Manual) 10L, Monocytes % (Manual) 2, Eosinophils % (Manual) 0, Basophils % (Manual) 0, Band Neutrophils 0, Platelet Estimate DecreasedL, Platelet Morphology Normal, Hypochromasia 1+, Random Vancomycin Level 17.3 03/09/20 05:53: POC Whole Blood Glucose 94 Height (Feet): 5 Height (Inches): 3.00 Weight (Pounds): 128 General Appearance: no apparent distress Cardiovascular: normal rate Respiratory/Chest: decreased breath sounds Abdomen: distended Johnny Houston MD Mar 09, 2020 09:12
[2020-03-09] MEDS: AVIBACTAM IV SCH ×3 (10:04→21:00)
[2020-03-09] MEDS: CEFTAZIDIME IV SCH ×3 (10:04→21:00)
[2020-03-09] MEDS: D5W IV SCH ×3 (10:04→21:00)
--- NOTE | 2020-03-09 11:24 | Hematology/Onc Progress Note ---
Assessment/Plan Assessment/Plan Imaging: noted Assessment and Recs # Leukocytosis, now with likely bacteremia, as per ID care --> Cxr: : Large left abiola consolidation/effusion --> wbc 30-->40-->27->30->29-->35->32 --> ABX angelo/vanc --> smear reviewed --> ID recs are noted # Elevated tumor markers, cea and ca 19.9 --> reviewed prior 01/27/20 cat scan a/p --> no masses noted, hold off further extensive w/u # Anemia of chronic disease due to underlying chronic medical issues, m ultifactorial --> Anemia workup has been reviewed, cw acd --> No evidence of hemolysis is noted, peripheral smear has been reviewed. --> Hgb goal >7. Transfuse prn. --> Epogen required in prior --> Medications have been reviewed --> low threshold for gi evaluation in case has occult + --> hgb 1.9-->5-->7.1-->8.8-->8.1 --> 1 unit prbc1, 2 units 01/15, 03/02 --> gi eval as needed # Coagulopathy with inr 1.5 --> consider vit k/ffp as needed preprocedure --> labs noted # Thrombocytopenia likely reactive v medication indcued --> plt 200-->129->91 --> r/o dic # JAVIER initially >2 --> on ivfs --> per renal # Elevated d-dimer, likely infection related --> venous duplex prior neg --> in prior neg # Dysphagia s/p peg --> as per gi # Thoracic aortic dissection --> s/p repair early 2017 # Chronic Resp failure -> s/p trach/vent # Psychiatric history on ativan/haldol # [place] resident # Dvt ppx --> scds The timing of this note does not necessarily reflect the time of the patient was seen. Greatly appreciate consultation. Subjective Allergies: Coded Allergies: No Known Allergies (Unverified , 10/10/17) All Systems: reviewed and negative except above Subjective 03/04 for 1 unit transfusion this am as hgb remains low, wbc better 03/05 egd was done did show large nonbleeding gastric ulcer, high tumor markers 03/06 nv, with davis overnight, bp remains stable, with occult + stool, dw Rn 03/09 nv, remains stable, on vanc/tobra/edson, meds reviewed, no bleeding Objective Objective Current Medications Medications (Trade) Dose Ordered Sig/Penny Route PRN Reason Start Time Stop Time Status Last Admin Dose Admin Acetaminophen (Tylenol) 650 mg Q6H PRN GT Mild Pain (Pain Scale 1-3) 03/02/20 22:30 04/01/20 22:29 Acetaminophen (Tylenol) 650 mg Q6H PRN GT Temp >100.5 03/03/20 03:00 04/01/20 22:29 Aspirin (ASA) 81 mg DAILY GT 03/07/20 09:00 04/21/20 08:59 03/09/20 08:43 Barium Sulfate (Readi-Cat 2) 450 ml NOW PRN ORAL Radiology Procedure 03/08/20 10:15 03/10/20 10:14 Ceftazidime/ Avibactam 0.94 gm/ Dextrose 110 ml @ 110 mls/hr Q12HR IV 03/06/20 13:00 03/13/20 12:59 03/09/20 10:04 Chlorhexidine Gluconate (Ling-Hex 2%) 1 applic DAILY@2000 TOPIC 03/03/20 20:00 06/01/20 19:59 03/08/20 22:00 Dextrose 1,000 ml @ 50 mls/hr Q20H IV 03/08/20 13:00 04/07/20 12:59 03/09/20 08:43 Hydralazine HCl (Apresoline) 25 mg Q6H PRN GT For High Blood Pressure 03/02/20 22:00 05/31/20 21:59 Iohexol (OMNIPAQUE-300 100ml) 100 ml NOW PRN INJ Radiology Procedure 03/08/20 10:15 03/10/20 10:14 Loperamide HCl (Imodium) 2 mg Q6H PRN GT Diarrhea 03/06/20 12:45 04/05/20 12:44 03/06/20 13:01 Metoclopramide HCl (Reglan) 5 mg Q8HR IVP 03/04/20 11:45 04/03/20 11:44 03/09/20 05:27 Micafungin Sodium 100 mg/Sodium Chloride 110 ml @ 110 mls/hr Q24H IVPB 03/06/20 11:00 03/13/20 10:59 03/08/20 11:44 Midodrine (Pro-Amatine) 10 mg THREE TIMES A DAY GT 03/04/20 13:00 06/01/20 12:59 03/09/20 08:43 Pantoprazole (Protonix) 40 mg EVERY 12 HOURS IVP 03/04/20 21:00 04/02/20 20:59 03/09/20 08:43 Polyethylene Glycol (Miralax) 17 gm BEDTIME PRN GT Constipation 03/02/20 22:00 04/01/20 21:59 Pravastatin Sodium (Pravachol) 20 mg BEDTIME GT 03/07/20 21:00 04/06/20 20:59 03/08/20 22:00 Sodium Hypochlorite (Dakin's Quarter Strength) 1 applic DAILY TOPIC 03/04/20 09:00 04/03/20 08:59 03/09/20 08:43 Tobramycin Protocol (Tobramycin pharmacy to dose) 1 ea DAILY PRN MISC Per rx protocol 03/06/20 09:15 04/05/20 09:14 Tobramycin Sulfate 80 mg/ Sodium Chloride 55 ml @ 110 mls/hr POSTHD IV 03/06/20 12:00 03/13/20 11:59 Vancomycin HCl (Vanco pharmacy to dose) 1 ea DAILY PRN MISC Per rx protocol 03/03/20 09:15 04/02/20 09:14 Vancomycin HCl 500 mg/Dextrose 110 ml @ 110 mls/hr ONCE ONCE IVPB 03/09/20 12:00 03/09/20 12:59 Last 24 Hour Vital Signs Date Time Temp Pulse Resp B/P (MAP) Pulse Ox O2 Delivery O2 Flow Rate FiO2 03/09/20 08:00 97.4 90 20 138/80 (99) 95 03/09/20 08:00 84 03/09/20 04:00 98.1 87 18 130/67 (88) 100 03/09/20 04:00 Mechanical Ventilator 03/09/20 04:00 40 03/09/20 04:00 83 03/09/20 03:27 84 24 40 03/09/20 00:00 97.7 82 19 141/74 (96) 100 03/09/20 00:00 40 03/09/20 00:00 Mechanical Ventilator 03/08/20 23:34 86 28 40 03/08/20 20:00 Mechanical Ventilator 03/08/20 20:00 97.9 87 18 145/69 (94) 100 03/08/20 20:00 92 03/08/20 19:44 91 29 40 03/08/20 16:00 96.6 81 22 134/79 (97) 95 03/08/20 16:00 Mechanical Ventilator 03/08/20 16:00 40 03/08/20 15:27 87 03/08/20 13:40 50 29 40 03/08/20 12:00 Mechanical Ventilator 03/08/20 12:00 40 03/08/20 12:00 97.7 72 21 132/92 (105) 95 03/08/20 11:51 84 03/08/20 08:00 Mechanical Ventilator 03/08/20 08:00 40 03/08/20 08:00 97.0 63 22 150/64 (92) 100 03/08/20 07:40 66 28 40 03/08/20 07:39 65 03/08/20 04:03 Mechanical Ventilator 03/08/20 04:02 40 03/08/20 04:00 96.4 66 24 153/58 (89) 99 03/08/20 04:00 56 03/08/20 03:56 59 20 40 03/08/20 00:00 57 03/08/20 00:00 96.3 52 22 110/60 (77) 99 03/08/20 00:00 Mechanical Ventilator 03/07/20 23:18 52 15 40 03/07/20 20:15 96.5 44 14 110/44 (66) 99 03/07/20 20:00 Mechanical Ventilator 03/07/20 20:00 43 03/07/20 20:00 40 03/07/20 19:43 41 14 40 03/07/20 16:00 Mechanical Ventilator 03/07/20 16:00 40 03/07/20 16:00 65 03/07/20 16:00 96.1 47 18 111/47 (68) 99 03/07/20 15:40 49 14 40 03/07/20 12:00 97.2 73 18 93/49 (64) 95 03/07/20 12:00 Mechanical Ventilator 03/07/20 12:00 65 03/07/20 12:00 40 03/07/20 11:50 51 16 40 Intake and Output 03/08/20 03/09/20 19:00 07:00 Intake Total 675 ml 1200.1 ml Balance 675 ml 1200.1 ml Intake Free Water 160 ml 180 ml IV Total 200 ml 635.1 ml Tube Feeding 315 ml 385 ml # Bowel Movements 1 2 Labs Test 03/07/20 03:20 03/08/20 06:05 03/09/20 04:31 03/09/20 05:53 White Blood Count 32.6 K/UL (4.8-10.8) 36.8 K/UL (4.8-10.8) 31.6 K/UL (4.8-10.8) Red Blood Count 2.63 M/UL (4.20-5.40) 2.65 M/UL (4.20-5.40) 2.70 M/UL (4.20-5.40) Hemoglobin 8.0 G/DL (12.0-16.0) 8.1 G/DL (12.0-16.0) 8.1 G/DL (12.0-16.0) Hematocrit 22.2 % (37.0-47.0) 22.9 % (37.0-47.0) 24.0 % (37.0-47.0) Mean Corpuscular Volume 85 FL (80-99) 87 FL (80-99) 89 FL (80-99) Mean Corpuscular Hemoglobin 30.3 PG (27.0-31.0) 30.5 PG (27.0-31.0) 30.2 PG (27.0-31.0) Mean Corpuscular Hemoglobin Concent 35.9 G/DL (32.0-36.0) 35.3 G/DL (32.0-36.0) 33.9 G/DL (32.0-36.0) Red Cell Distribution Width 13.3 % (11.6-14.8) 14.5 % (11.6-14.8) 15.6 % (11.6-14.8) Platelet Count 123 K/UL (150-450) 112 K/UL (150-450) 91 K/UL (150-450) Mean Platelet Volume 6.0 FL (6.5-10.1) 7.2 FL (6.5-10.1) 7.2 FL (6.5-10.1) Neutrophils (%) (Auto) % (45.0-75.0) % (45.0-75.0) % (45.0-75.0) Lymphocytes (%) (Auto) % (20.0-45.0) % (20.0-45.0) % (20.0-45.0) Monocytes (%) (Auto) % (1.0-10.0) % (1.0-10.0) % (1.0-10.0) Eosinophils (%) (Auto) % (0.0-3.0) % (0.0-3.0) % (0.0-3.0) Basophils (%) (Auto) % (0.0-2.0) % (0.0-2.0) % (0.0-2.0) Differential Total Cells Counted 100 100 100 Neutrophils % (Manual) 94 % (45-75) 91 % (45-75) 88 % (45-75) Lymphocytes % (Manual) 5 % (20-45) 6 % (20-45) 10 % (20-45) Monocytes % (Manual) 1 % (1-10) 3 % (1-10) 2 % (1-10) Eosinophils % (Manual) 0 % (0-3) 0 % (0-3) 0 % (0-3) Basophils % (Manual) 0 % (0-2) 0 % (0-2) 0 % (0-2) Band Neutrophils 0 % (0-8) 0 % (0-8) 0 % (0-8) Platelet Estimate Decreased Decreased Decreased Platelet Morphology Normal Normal Normal Polychromasia 1+ 1+ Hypochromasia 1+ 1+ 1+ Sodium Level 142 MMOL/L (136-145) 143 MMOL/L (136-145) Potassium Level 3.2 MMOL/L (3.5-5.1) 3.8 MMOL/L (3.5-5.1) Chloride Level 106 MMOL/L (98-107) 106 MMOL/L (98-107) Carbon Dioxide Level 23 MMOL/L (21-32) 21 MMOL/L (21-32) Anion Gap 13 mmol/L (5-15) 17 mmol/L (5-15) Blood Urea Nitrogen 101 mg/dL (7-18) 123 mg/dL (7-18) Creatinine 2.5 MG/DL (0.55-1.30) 2.8 MG/DL (0.55-1.30) Estimat Glomerular Filtration Rate 20.6 mL/min (>60) 18.1 mL/min (>60) Glucose Level 78 MG/DL (74-106) 26 MG/DL (74-106) Calcium Level 7.3 MG/DL (8.5-10.1) 6.9 MG/DL (8.5-10.1) Random Vancomycin Level 18.9 ug/mL 17.3 ug/mL Anisocytosis 1+ Phosphorus Level 7.6 MG/DL (2.5-4.9) Magnesium Level 2.2 MG/DL (1.8-2.4) Total Bilirubin 0.4 MG/DL (0.2-1.0) Aspartate Amino Transf (AST/SGOT) 40 U/L (15-37) Alanine Aminotransferase (ALT/SGPT) 18 U/L (12-78) Alkaline Phosphatase 169 U/L (46-116) C-Reactive Protein, Quantitative 4.8 mg/dL (0.00-0.90) Pro-B-Type Natriuretic Peptide > 77870 pg/mL (0-125) Total Protein 5.9 G/DL (6.4-8.2) Albumin 2.5 G/DL (3.4-5.0) Globulin 3.4 g/dL Albumin/Globulin Ratio 0.7 (1.0-2.7) POC Whole Blood Glucose 94 MG/DL (74-106) Height (Feet): 5 Height (Inches): 3.00 Weight (Pounds): 128 Objective Physical Exam: Vitals: reviewed General: NAD HEENT: nc, at Neck: supple ++trach/vent Chest: clear breath sounds bilaterally Cardiovascular: RRR, no s3, s4 Abdomen: soft, nontender, nd +gtube Extremities: no cce, normal range of motion Neuro: alert Evan Muhammad MD Mar 09, 2020 11:24
[2020-03-09] MEDS: Micafungin 100 MG in NS 110 ML IVPB SCH (11:41)
[2020-03-09 12:00] VITALS: BP 134/90
[2020-03-09] MEDS ORDERED: Vancomycin 500mg/D5W 110ml IVPB ONE ×2 (12:00)
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
--- NOTE | 2020-03-09 13:59 | Pulmonology Progress Note ---
Subjective ROS Limited/Unobtainable: Yes Interval Events: none major reported per nursing HEENT: Repors: no symptoms Respiratory: Reports: no symptoms Cardiovascular: Reports: no symptoms Gastrointestinal/Abdominal: Reports: diarrhea Allergies: Coded Allergies: No Known Allergies (Unverified , 10/10/17) All Systems: reviewed and negative except above Objective Last 24 Hour Vital Signs Date Time Temp Pulse Resp B/P (MAP) Pulse Ox O2 Delivery O2 Flow Rate FiO2 03/09/20 12:00 82 03/09/20 12:00 40 03/09/20 12:00 Mechanical Ventilator 03/09/20 12:00 97.9 74 20 134/90 (105) 95 03/09/20 08:00 Mechanical Ventilator 03/09/20 08:00 97.4 90 20 138/80 (99) 95 03/09/20 08:00 40 03/09/20 08:00 84 03/09/20 04:00 98.1 87 18 130/67 (88) 100 03/09/20 04:00 Mechanical Ventilator 03/09/20 04:00 40 03/09/20 04:00 83 03/09/20 03:27 84 24 40 03/09/20 00:00 97.7 82 19 141/74 (96) 100 03/09/20 00:00 40 03/09/20 00:00 Mechanical Ventilator 03/08/20 23:34 86 28 40 03/08/20 20:00 Mechanical Ventilator 03/08/20 20:00 97.9 87 18 145/69 (94) 100 03/08/20 20:00 92 03/08/20 19:44 91 29 40 03/08/20 16:00 96.6 81 22 134/79 (97) 95 03/08/20 16:00 Mechanical Ventilator 03/08/20 16:00 40 03/08/20 15:27 87 Intake and Output 03/08/20 03/09/20 19:00 07:00 Intake Total 675 ml 1200.1 ml Balance 675 ml 1200.1 ml Intake Free Water 160 ml 180 ml IV Total 200 ml 635.1 ml Tube Feeding 315 ml 385 ml # Bowel Movements 1 2 General Appearance: no acute distress HEENT: atraumatic Respiratory: lungs clear Cardiovascular: regular rhythm, bradycardia Extremities: other - edema bilateral Laboratory Tests 03/09/20 04:31: White Blood Count 31.6*H, Red Blood Count 2.70L, Hemoglobin 8.1L, Hematocrit 24.0L, Mean Corpuscular Volume 89, Mean Corpuscular Hemoglobin 30.2, Mean Corpuscular Hemoglobin Concent 33.9, Red Cell Distribution Width 15.6H, Platelet Count 91L, Mean Platelet Volume 7.2, Neutrophils (%) (Auto) , Lymphocytes (%) (Auto) , Monocytes (%) (Auto) , Eosinophils (%) (Auto) , Basophils (%) (Auto) , Differential Total Cells Counted 100, Neutrophils % (Manual) 88H, Lymphocytes % (Manual) 10L, Monocytes % (Manual) 2, Eosinophils % (Manual) 0, Basophils % (Manual) 0, Band Neutrophils 0, Platelet Estimate DecreasedL, Platelet Morphology Normal, Hypochromasia 1+, Random Vancomycin Level 17.3 03/09/20 05:53: POC Whole Blood Glucose 94 Current Medications Medications (Trade) Dose Ordered Sig/Penny Route PRN Reason Start Time Stop Time Status Last Admin Dose Admin Acetaminophen (Tylenol) 650 mg Q6H PRN GT Mild Pain (Pain Scale 1-3) 03/02/20 22:30 04/01/20 22:29 Acetaminophen (Tylenol) 650 mg Q6H PRN GT Temp >100.5 03/03/20 03:00 04/01/20 22:29 Aspirin (ASA) 81 mg DAILY GT 03/07/20 09:00 04/21/20 08:59 03/09/20 08:43 Barium Sulfate (Readi-Cat 2) 450 ml NOW PRN ORAL Radiology Procedure 03/08/20 10:15 03/10/20 10:14 Ceftazidime/ Avibactam 0.94 gm/ Dextrose 110 ml @ 110 mls/hr Q12HR IV 03/06/20 13:00 03/13/20 12:59 03/09/20 10:04 Chlorhexidine Gluconate (Ling-Hex 2%) 1 applic DAILY@2000 TOPIC 03/03/20 20:00 06/01/20 19:59 03/08/20 22:00 Dextrose 1,000 ml @ 50 mls/hr Q20H IV 03/08/20 13:00 04/07/20 12:59 03/09/20 08:43 Hydralazine HCl (Apresoline) 25 mg Q6H PRN GT For High Blood Pressure 03/02/20 22:00 05/31/20 21:59 Iohexol (OMNIPAQUE-300 100ml) 100 ml NOW PRN INJ Radiology Procedure 03/08/20 10:15 03/10/20 10:14 Loperamide HCl (Imodium) 2 mg Q6H PRN GT Diarrhea 03/06/20 12:45 04/05/20 12:44 03/06/20 13:01 Metoclopramide HCl (Reglan) 5 mg Q8HR IVP 03/04/20 11:45 04/03/20 11:44 03/09/20 05:27 Micafungin Sodium 100 mg/Sodium Chloride 110 ml @ 110 mls/hr Q24H IVPB 03/06/20 11:00 03/13/20 10:59 03/09/20 11:41 Midodrine (Pro-Amatine) 10 mg THREE TIMES A DAY GT 03/04/20 13:00 06/01/20 12:59 03/09/20 08:43 Pantoprazole (Protonix) 40 mg EVERY 12 HOURS IVP 03/04/20 21:00 04/02/20 20:59 03/09/20 08:43 Polyethylene Glycol (Miralax) 17 gm BEDTIME PRN GT Constipation 03/02/20 22:00 04/01/20 21:59 Pravastatin Sodium (Pravachol) 20 mg BEDTIME GT 03/07/20 21:00 04/06/20 20:59 03/08/20 22:00 Sodium Hypochlorite (Dakin's Quarter Strength) 1 applic DAILY TOPIC 03/04/20 09:00 04/03/20 08:59 03/09/20 08:43 Tobramycin Protocol (Tobramycin pharmacy to dose) 1 ea DAILY PRN MISC Per rx protocol 03/06/20 09:15 04/05/20 09:14 Tobramycin Sulfate 80 mg/ Sodium Chloride 55 ml @ 110 mls/hr POSTHD IV 03/06/20 12:00 03/13/20 11:59 Vancomycin HCl (Vanco pharmacy to dose) 1 ea DAILY PRN MISC Per rx protocol 03/03/20 09:15 04/02/20 09:14 Assessment/Plan Assessment/Plan 1. Chronic respiratory failure. - CT chest/abd/pelv: improving pleural effusion 2. Mechanical ventilation. - current setting at AC 14, Vt 500, FiO2 40%, PEEP 5 saturating at 97-98% - continue current setting - suction secretions as needed 3. Chronic tracheostomy. 4. Chronic G-tube. 5. Anemia. - s/p transfusion - stool OB positive 6. Renal failure. 7. Leukocytosis and sepsis. 8. Sepsis UTI 9. Gram positive cocci bacteremia 10. COVID-19 negative 11. Diarrhea - C. diff neg 12. Hypoglycemia We will follow carefully. ID and Hematology following. The care for this patient was discussed with my supervising physician Time spent for this case was approximately 31 minutes Cruz Wilson Mar 09, 2020 13:59
[2020-03-09] MEDS: TOBRAMYCIN IV SCH (14:03)
[2020-03-09] MEDS: NS IV SCH (14:03)
--- NOTE | 2020-03-09 14:23 | NUR ---
INSURANCE CLINCALS AND REVIEW FAXED TO [facility] T: [phone] F: [phone]
[2020-03-09 16:00] VITALS: BP 122/67
--- NOTE | 2020-03-09 18:58 | NUR ---
NURSE HAND-OFF REPORT: Important Events on Shift:Ct ABD Patient Status: Stable Diet: Gtube Nepro @35ml/hr Pending Orders: NA Pending Results/Labs:NA Pending notification:NA Latest Vital Signs: Temperature 98.2 , Pulse 86 , B/P 122 /67 , Respiratory Rate 22 , O2 SAT 99 , Mechanical Ventilator, O2 Flow Rate . Vital Sign Comment: Stable EKG Rhythm: Sinus Rhythm Rhythm change?: N Notified?: N -Dr Екатерина HATFIELD Response: No New Orders Received Latest [place] Fall Score: 50 Fall Risk: High Risk Safety Measures: Call light Within Reach, Bed Alarm Zone 1, Side Rails Side Rails x2, Bed position Low and Locked. Fall Precautions: Yellow Socks Report given to ERASMO Tsai.
--- NOTE | 2020-03-09 19:30 | NUR ---
NURSE NOTES: Received patient awake in bed, no s/s of acute distress, able to answer questions with head nod and/or eye blink. 2 IV access patent, flushed with normal saline, patient tolerating well. Patient tolerating current Vent settings, 02 sat 99-100% at this time. Will continue to monitor H/H closely.
[2020-03-09 20:00] VITALS: BP 139/74
[2020-03-09] MEDS: Dyna-Hex 2% Top Sol 2oz TOPIC SCH (20:06)
[2020-03-10] VITALS: BP 144/64
--- NOTE | 2020-03-10 00:30 | NUR ---
NURSE NOTES: Patient awake in bed, no s/s of acute distress. Patient able to respond to simple questions with head nod and/or eye blink. Tolerating current Vent settings, O2 sat 99-100% at this time. VSS.
--- NOTE | 2020-03-10 01:43 | Cardiology Progress Note ---
Subjective DATE OF SERVICE: Mar 09, 2020 Occasional episodes of sinus bradycardia mostly during sleep; asymptomatic. Heart rates mostly 70's during day. BP parameters stable. Objective Last 24 Hour Vital Signs Date Time Temp Pulse Resp B/P (MAP) Pulse Ox O2 Delivery O2 Flow Rate FiO2 03/10/20 00:32 Mechanical Ventilator 03/10/20 00:05 40 03/10/20 00:04 78 03/10/20 00:00 98.2 79 25 144/64 (90) 100 03/09/20 23:00 76 25 40 03/09/20 20:00 40 03/09/20 20:00 Mechanical Ventilator 03/09/20 20:00 Mechanical Ventilator 03/09/20 20:00 98.1 75 20 139/74 (95) 98 03/09/20 20:00 76 03/09/20 19:10 77 24 40 03/09/20 16:00 Mechanical Ventilator 03/09/20 16:00 40 03/09/20 16:00 86 03/09/20 16:00 98.2 76 22 122/67 (85) 99 03/09/20 15:15 78 25 40 03/09/20 12:00 82 03/09/20 12:00 40 03/09/20 12:00 Mechanical Ventilator 03/09/20 12:00 97.9 74 20 134/90 (105) 95 03/09/20 11:22 70 25 40 03/09/20 08:00 Mechanical Ventilator 03/09/20 08:00 97.4 90 20 138/80 (99) 95 03/09/20 08:00 40 03/09/20 08:00 84 03/09/20 07:08 80 25 40 03/09/20 04:00 98.1 87 18 130/67 (88) 100 03/09/20 04:00 Mechanical Ventilator 03/09/20 04:00 40 03/09/20 04:00 83 03/09/20 03:27 84 24 40 HEENT: Thin Trach secretions RHYTHM: NSR, SB LUNGS: bilateral rhonchi - few, trach site clean CARDIAC: normal rate, regular rhythm, normal S1 and S2 ABDOMEN: normal bowel sounds, non tender, soft, G-Tube intact EXTREMITIES: normal range of motion, non-tender, normal inspection Laboratory Tests Test 03/09/20 04:31 03/09/20 05:53 03/09/20 20:13 White Blood Count 31.6 K/UL (4.8-10.8) *H Red Blood Count 2.70 M/UL (4.20-5.40) L Hemoglobin 8.1 G/DL (12.0-16.0) L Hematocrit 24.0 % (37.0-47.0) L Mean Corpuscular Volume 89 FL (80-99) Mean Corpuscular Hemoglobin 30.2 PG (27.0-31.0) Mean Corpuscular Hemoglobin Concent 33.9 G/DL (32.0-36.0) Red Cell Distribution Width 15.6 % (11.6-14.8) H Platelet Count 91 K/UL (150-450) L Mean Platelet Volume 7.2 FL (6.5-10.1) Neutrophils (%) (Auto) % (45.0-75.0) Lymphocytes (%) (Auto) % (20.0-45.0) Monocytes (%) (Auto) % (1.0-10.0) Eosinophils (%) (Auto) % (0.0-3.0) Basophils (%) (Auto) % (0.0-2.0) Differential Total Cells Counted 100 Neutrophils % (Manual) 88 % (45-75) H Lymphocytes % (Manual) 10 % (20-45) L Monocytes % (Manual) 2 % (1-10) Eosinophils % (Manual) 0 % (0-3) Basophils % (Manual) 0 % (0-2) Band Neutrophils 0 % (0-8) Platelet Estimate Decreased L Platelet Morphology Normal Hypochromasia 1+ Random Vancomycin Level 17.3 ug/mL POC Whole Blood Glucose 94 MG/DL (74-106) Pending Microbiology Date/Time Source Procedure Growth Status 03/08/20 10:43 Blood Blood Culture - Preliminary NO GROWTH AFTER 24 HOURS Resulted 03/08/20 10:33 Blood Blood Culture - Preliminary NO GROWTH AFTER 24 HOURS Resulted Assessment/Plan Assessment/Plan Sepsis with recovered shock Sinus node disease with bradycardia Hx pacemaker explant Ischemic cardiomyopathy - hx CABG Paroxysmal Atrial Fib Respiratory failure with trach Hx thoracic aortic aneurysm repair cardiac monitor Vent support Monitor and replace lytes Antimicrobials DVT prophyl Avoiding all meds with negative chronotropic potential No urgent indication for pacemaker in bedbound patient Deni Willams MD Mar 10, 2020 01:43
[2020-03-10 04:00] VITALS: BP 114/66
--- NOTE | 2020-03-10 04:43 | NUR ---
NURSE NOTES: Patient awake in bed, no s/s of acute distress. VSS. Patient tolerating g-tube feeding. Patient tolerating current Vent settings, no changes made. Bed low and locked.
[2020-03-10] MEDS: Dextrose 10% 1,000 ML IV SCH (04:54)
[2020-03-10 05:04] LABS: ALBUMIN 1.9 G/DL (3.4-5.0); ALBUMIN/GLOBULIN RATIO 0.6 (1.0-2.7); BILIRUBIN,TOTAL 0.4 MG/DL (0.2-1.0); CALCIUM 6.3 MG/DL (8.5-10.1); CREATININE 2.8 MG/DL (0.55-1.30); POTASSIUM 4.2 MMOL/L (3.5-5.1)
[2020-03-10 05:27] LABS: HEMATOCRIT 24.1 % (37.0-47.0); HEMOGLOBIN 8.2 G/DL (12.0-16.0); MEAN CORPUSCULAR VOLUME 90 FL (80-99); PLATELET COUNT 93 K/UL (150-450); RED BLOOD COUNT 2.68 M/UL (4.20-5.40); RED CELL DISTRIBUTION WIDTH 15.6 % (11.6-14.8)
[2020-03-10] MEDS: Metoclopramide 10mg/2ml Inj IVP SCH ×3 (05:58→21:47)
--- NOTE | 2020-03-10 06:27 | Hematology/Onc Progress Note ---
Assessment/Plan Assessment/Plan # Leukocytosis, now with likely bacteremia, as per ID care --> Cxr: : Large left abiola consolidation/effusion --> wbc 30-->40-->27->30->29-->35->32-->28 --> ABX angelo/vanc-->tobra/edson/vanc --> smear reviewed --> ID recs are noted # Elevated tumor markers, cea and ca 19.9 --> reviewed prior 01/27/20 cat scan a/p --> no masses noted, hold off further extensive w/u # Anemia of chronic disease due to underlying chronic medical issues, multifactorial --> Anemia workup has been reviewed, cw acd --> No evidence of hemolysis is noted, peripheral smear has been reviewed. --> Hgb goal >7. Transfuse prn. --> Epogen required in prior --> Medications have been reviewed --> low threshold for gi evaluation in case has occult + --> hgb 1.9-->5-->7.1-->8.8-->8.1 --> 1 unit prbc1, 2 units 01/15, 03/02 --> gi eval as needed # Coagulopathy with inr 1.5 --> consider vit k/ffp as needed preprocedure --> labs noted # Thrombocytopenia likely reactive v medication indcued --> plt 200-->129->91 --> r/o dic # JAVIER initially >2 --> on ivfs --> per renal # Elevated d-dimer, likely infection related --> venous duplex prior neg --> in prior neg # Dysphagia s/p peg --> as per gi # Thoracic aortic dissection --> s/p repair early 2017 # Chronic Resp failure -> s/p trach/vent # Psychiatric history on ativan/haldol # [place] resident # Dvt ppx --> scds The timing of this note does not necessarily reflect the time of the patient was seen. Greatly appreciate consultation. Subjective Allergies: Coded Allergies: No Known Allergies (Unverified , 10/10/17) All Systems: reviewed and negative except above Subjective 03/04 for 1 unit transfusion this am as hgb remains low, wbc better 03/05 egd was done did show large nonbleeding gastric ulcer, high tumor markers 03/06 nv, with davis overnight, bp remains stable, with occult + stool, dw Rn 03/09 nv, remains stable, on vanc/tobra/edson, meds reviewed, no bleeding 03/10 nv, on vent, no bleeding, receiving abx, no night sweats Objective Objective Current Medications Medications (Trade) Dose Ordered Sig/Penny Route PRN Reason Start Time Stop Time Status Last Admin Dose Admin Acetaminophen (Tylenol) 650 mg Q6H PRN GT Mild Pain (Pain Scale 1-3) 03/02/20 22:30 04/01/20 22:29 Acetaminophen (Tylenol) 650 mg Q6H PRN GT Temp >100.5 03/03/20 03:00 04/01/20 22:29 Aspirin (ASA) 81 mg DAILY GT 03/07/20 09:00 04/21/20 08:59 03/09/20 08:43 Barium Sulfate (Readi-Cat 2) 450 ml NOW PRN ORAL Radiology Procedure 03/08/20 10:15 03/10/20 10:14 Ceftazidime/ Avibactam 0.94 gm/ Dextrose 110 ml @ 110 mls/hr Q12HR IV 03/06/20 13:00 03/13/20 12:59 03/09/20 21:00 Chlorhexidine Gluconate (Ling-Hex 2%) 1 applic DAILY@2000 TOPIC 03/03/20 20:00 06/01/20 19:59 03/09/20 20:06 Dextrose 1,000 ml @ 50 mls/hr Q20H IV 03/08/20 13:00 04/07/20 12:59 03/10/20 04:54 Hydralazine HCl (Apresoline) 25 mg Q6H PRN GT For High Blood Pressure 03/02/20 22:00 05/31/20 21:59 Iohexol (OMNIPAQUE-300 100ml) 100 ml NOW PRN INJ Radiology Procedure 03/08/20 10:15 03/10/20 10:14 Loperamide HCl (Imodium) 2 mg Q6H PRN GT Diarrhea 03/06/20 12:45 04/05/20 12:44 03/06/20 13:01 Metoclopramide HCl (Reglan) 5 mg Q8HR IVP 03/04/20 11:45 04/03/20 11:44 03/10/20 05:58 Micafungin Sodium 100 mg/Sodium Chloride 110 ml @ 110 mls/hr Q24H IVPB 03/06/20 11:00 03/13/20 10:59 03/09/20 11:41 Midodrine (Pro-Amatine) 10 mg THREE TIMES A DAY GT 03/04/20 13:00 06/01/20 12:59 03/09/20 17:21 Pantoprazole (Protonix) 40 mg EVERY 12 HOURS IVP 03/04/20 21:00 04/02/20 20:59 03/09/20 20:06 Polyethylene Glycol (Miralax) 17 gm BEDTIME PRN GT Constipation 03/02/20 22:00 04/01/20 21:59 Pravastatin Sodium (Pravachol) 20 mg BEDTIME GT 03/07/20 21:00 04/06/20 20:59 03/09/20 20:06 Sodium Hypochlorite (Dakin's Quarter Strength) 1 applic DAILY TOPIC 03/04/20 09:00 04/03/20 08:59 03/09/20 08:43 Tobramycin Protocol (Tobramycin pharmacy to dose) 1 ea DAILY PRN MISC Per rx protocol 03/06/20 09:15 04/05/20 09:14 Tobramycin Sulfate 80 mg/ Sodium Chloride 55 ml @ 110 mls/hr POSTHD IV 03/06/20 12:00 03/13/20 11:59 03/09/20 14:03 Vancomycin HCl (Vanco pharmacy to dose) 1 ea DAILY PRN MISC Per rx protocol 03/03/20 09:15 04/02/20 09:14 Last 24 Hour Vital Signs Date Time Temp Pulse Resp B/P (MAP) Pulse Ox O2 Delivery O2 Flow Rate FiO2 03/10/20 04:00 73 03/10/20 04:00 Mechanical Ventilator 03/10/20 04:00 98.1 72 26 114/66 (82) 99 03/10/20 03:00 73 20 40 03/10/20 00:32 Mechanical Ventilator 03/10/20 00:05 40 03/10/20 00:04 78 03/10/20 00:00 98.2 79 25 144/64 (90) 100 03/09/20 23:00 76 25 40 1/25/21 20:00 40 03/09/20 20:00 Mechanical Ventilator 03/09/20 20:00 Mechanical Ventilator 03/09/20 20:00 98.1 75 20 139/74 (95) 98 03/09/20 20:00 76 03/09/20 19:10 77 24 40 03/09/20 16:00 Mechanical Ventilator 03/09/20 16:00 40 03/09/20 16:00 86 03/09/20 16:00 98.2 76 22 122/67 (85) 99 03/09/20 15:15 78 25 40 03/09/20 12:00 82 03/09/20 12:00 40 03/09/20 12:00 Mechanical Ventilator 03/09/20 12:00 97.9 74 20 134/90 (105) 95 03/09/20 11:22 70 25 40 03/09/20 08:00 Mechanical Ventilator 03/09/20 08:00 97.4 90 20 138/80 (99) 95 03/09/20 08:00 40 03/09/20 08:00 84 03/09/20 07:08 80 25 40 03/09/20 04:00 98.1 87 18 130/67 (88) 100 03/09/20 04:00 Mechanical Ventilator 03/09/20 04:00 40 03/09/20 04:00 83 03/09/20 03:27 84 24 40 03/09/20 00:00 97.7 82 19 141/74 (96) 100 03/09/20 00:00 40 03/09/20 00:00 Mechanical Ventilator 03/08/20 23:34 86 28 40 03/08/20 20:00 Mechanical Ventilator 03/08/20 20:00 97.9 87 18 145/69 (94) 100 03/08/20 20:00 92 03/08/20 19:44 91 29 40 03/08/20 16:00 96.6 81 22 134/79 (97) 95 03/08/20 16:00 Mechanical Ventilator 03/08/20 16:00 40 03/08/20 15:27 87 03/08/20 13:40 50 29 40 03/08/20 12:00 Mechanical Ventilator 03/08/20 12:00 40 03/08/20 12:00 97.7 72 21 132/92 (105) 95 03/08/20 11:51 84 03/08/20 08:00 Mechanical Ventilator 03/08/20 08:00 40 03/08/20 08:00 97.0 63 22 150/64 (92) 100 03/08/20 07:40 66 28 40 03/08/20 07:39 65 Intake and Output 03/09/20 03/10/20 19:00 07:00 Intake Total 545 ml 935 ml Balance 545 ml 935 ml Intake Free Water 180 ml 60 ml IV Total 50 ml 560 ml Tube Feeding 315 ml 315 ml # Voids 1 Labs Test 03/08/20 06:05 03/09/20 04:31 03/09/20 05:53 03/09/20 20:13 White Blood Count 36.8 K/UL (4.8-10.8) 31.6 K/UL (4.8-10.8) Red Blood Count 2.65 M/UL (4.20-5.40) 2.70 M/UL (4.20-5.40) Hemoglobin 8.1 G/DL (12.0-16.0) 8.1 G/DL (12.0-16.0) Hematocrit 22.9 % (37.0-47.0) 24.0 % (37.0-47.0) Mean Corpuscular Volume 87 FL (80-99) 89 FL (80-99) Mean Corpuscular Hemoglobin 30.5 PG (27.0-31.0) 30.2 PG (27.0-31.0) Mean Corpuscular Hemoglobin Concent 35.3 G/DL (32.0-36.0) 33.9 G/DL (32.0-36.0) Red Cell Distribution Width 14.5 % (11.6-14.8) 15.6 % (11.6-14.8) Platelet Count 112 K/UL (150-450) 91 K/UL (150-450) Mean Platelet Volume 7.2 FL (6.5-10.1) 7.2 FL (6.5-10.1) Neutrophils (%) (Auto) % (45.0-75.0) % (45.0-75.0) Lymphocytes (%) (Auto) % (20.0-45.0) % (20.0-45.0) Monocytes (%) (Auto) % (1.0-10.0) % (1.0-10.0) Eosinophils (%) (Auto) % (0.0-3.0) % (0.0-3.0) Basophils (%) (Auto) % (0.0-2.0) % (0.0-2.0) Differential Total Cells Counted 100 100 Neutrophils % (Manual) 91 % (45-75) 88 % (45-75) Lymphocytes % (Manual) 6 % (20-45) 10 % (20-45) Monocytes % (Manual) 3 % (1-10) 2 % (1-10) Eosinophils % (Manual) 0 % (0-3) 0 % (0-3) Basophils % (Manual) 0 % (0-2) 0 % (0-2) Band Neutrophils 0 % (0-8) 0 % (0-8) Platelet Estimate Decreased Decreased Platelet Morphology Normal Normal Polychromasia 1+ Hypochromasia 1+ 1+ Anisocytosis 1+ Sodium Level 143 MMOL/L (136-145) Potassium Level 3.8 MMOL/L (3.5-5.1) Chloride Level 106 MMOL/L (98-107) Carbon Dioxide Level 21 MMOL/L (21-32) Anion Gap 17 mmol/L (5-15) Blood Urea Nitrogen 123 mg/dL (7-18) Creatinine 2.8 MG/DL (0.55-1.30) Estimat Glomerular Filtration Rate 18.1 mL/min (>60) Glucose Level 26 MG/DL (74-106) Calcium Level 6.9 MG/DL (8.5-10.1) Phosphorus Level 7.6 MG/DL (2.5-4.9) Magnesium Level 2.2 MG/DL (1.8-2.4) Total Bilirubin 0.4 MG/DL (0.2-1.0) Aspartate Amino Transf (AST/SGOT) 40 U/L (15-37) Alanine Aminotransferase (ALT/SGPT) 18 U/L (12-78) Alkaline Phosphatase 169 U/L (46-116) C-Reactive Protein, Quantitative 4.8 mg/dL (0.00-0.90) Pro-B-Type Natriuretic Peptide > 60148 pg/mL (0-125) Total Protein 5.9 G/DL (6.4-8.2) Albumin 2.5 G/DL (3.4-5.0) Globulin 3.4 g/dL Albumin/Globulin Ratio 0.7 (1.0-2.7) Random Vancomycin Level 17.3 ug/mL POC Whole Blood Glucose 94 MG/DL (74-106) Test 03/10/20 03:45 03/10/20 05:48 White Blood Count 26.0 K/UL (4.8-10.8) Red Blood Count 2.68 M/UL (4.20-5.40) Hemoglobin 8.2 G/DL (12.0-16.0) Hematocrit 24.1 % (37.0-47.0) Mean Corpuscular Volume 90 FL (80-99) Mean Corpuscular Hemoglobin 30.6 PG (27.0-31.0) Mean Corpuscular Hemoglobin Concent 34.0 G/DL (32.0-36.0) Red Cell Distribution Width 15.6 % (11.6-14.8) Platelet Count 93 K/UL (150-450) Mean Platelet Volume 11.0 FL (6.5-10.1) Neutrophils (%) (Auto) % (45.0-75.0) Lymphocytes (%) (Auto) % (20.0-45.0) Monocytes (%) (Auto) % (1.0-10.0) Eosinophils (%) (Auto) % (0.0-3.0) Basophils (%) (Auto) % (0.0-2.0) Sodium Level 135 MMOL/L (136-145) Potassium Level 4.2 MMOL/L (3.5-5.1) Chloride Level 99 MMOL/L (98-107) Carbon Dioxide Level 19 MMOL/L (21-32) Anion Gap 17 mmol/L (5-15) Blood Urea Nitrogen 110 mg/dL (7-18) Creatinine 2.8 MG/DL (0.55-1.30) Estimat Glomerular Filtration Rate 18.1 mL/min (>60) Glucose Level 115 MG/DL (74-106) Calcium Level 6.3 MG/DL (8.5-10.1) Phosphorus Level 8.0 MG/DL (2.5-4.9) Magnesium Level 2.1 MG/DL (1.8-2.4) Total Bilirubin 0.4 MG/DL (0.2-1.0) Aspartate Amino Transf (AST/SGOT) 58 U/L (15-37) Alanine Aminotransferase (ALT/SGPT) 17 U/L (12-78) Alkaline Phosphatase 171 U/L (46-116) C-Reactive Protein, Quantitative 6.7 mg/dL (0.00-0.90) Total Protein 4.9 G/DL (6.4-8.2) Albumin 1.9 G/DL (3.4-5.0) Globulin 3.0 g/dL Albumin/Globulin Ratio 0.6 (1.0-2.7) POC Whole Blood Glucose 123 MG/DL (74-106) Height (Feet): 5 Height (Inches): 3.00 Weight (Pounds): 128 Objective Physical Exam: Vitals: reviewed General: NAD HEENT: nc, at Neck: supple ++trach/vent Chest: clear breath sounds bilaterally Cardiovascular: RRR, no s3, s4 Abdomen: soft, nontender, nd +gtube Extremities: no cce, normal range of motion Neuro: alert Evan Muhammad MD Mar 10, 2020 06:27
--- NOTE | 2020-03-10 06:45 | NUR ---
NURSE HAND-OFF REPORT: Important Events on Shift: n/a Patient Status: stable Diet: Nepro 1.5 @35cc Pending Orders: Pending Results/Labs: Mag, Phos, CBC, CMP, CRP Pending MD notification: Latest Vital Signs: Temperature 98.1 , Pulse 73 , B/P 114 /66 , Respiratory Rate 26 , O2 SAT 99 , Mechanical Ventilator, O2 Flow Rate . Vital Sign Comment: EKG Rhythm: Sinus Rhythm Rhythm change?: N MD Notified?: N - MD Response: No New Orders Received Latest Chavarria Fall Score: 50 Fall Risk: High Risk Safety Measures: Call light Within Reach, Bed Alarm Zone 1, Side Rails Side Rails x2, Bed position Low and Locked. Fall Precautions: Yellow Socks Report given to . Addendum: 03/10/20 at 0716 by Quin Morales RN Report given to ERASMO Ang
--- NOTE | 2020-03-10 07:00 | NUR ---
NURSE NOTES: Received patient report from ERASMO Tsai. Patient is AO x3, in bed asleep at this time. Patient on trach to vent Shiley 7 AC 14 VT 500 FiO2 40% PEEP 5, breathing is even and unlabored with no signs of respiratory distress. No pain or discomfort noted at this time. Bed in lowest position, locked with side rails x2 up. Call light within reach.
--- NOTE | 2020-03-10 07:04 | NUR ---
RESPIRATORY NOTE: PT received on ACVC 14, 500, 40%, +5. Alarms are on and audible. Vent circuit is secure and out of the way. Airway is secure and patent. No s/s of respiratory distress noted. Will continue to monitor.
[2020-03-10 08:00] VITALS: BP 126/70
--- NOTE | 2020-03-10 08:11 | General Progress Note ---
Subjective ROS Limited/Unobtainable: No Allergies: Coded Allergies: No Known Allergies (Unverified , 10/10/17) Objective Last 24 Hour Vital Signs Date Time Temp Pulse Resp B/P (MAP) Pulse Ox O2 Delivery O2 Flow Rate FiO2 03/10/20 08:00 97.9 76 21 126/70 (88) 99 03/10/20 08:00 Mechanical Ventilator 03/10/20 08:00 40 03/10/20 04:00 73 03/10/20 04:00 Mechanical Ventilator 03/10/20 04:00 98.1 72 26 114/66 (82) 99 03/10/20 03:00 73 20 40 03/10/20 00:32 Mechanical Ventilator 03/10/20 00:05 40 03/10/20 00:04 78 03/10/20 00:00 98.2 79 25 144/64 (90) 100 03/09/20 23:00 76 25 40 03/09/20 20:00 40 03/09/20 20:00 Mechanical Ventilator 03/09/20 20:00 Mechanical Ventilator 03/09/20 20:00 98.1 75 20 139/74 (95) 98 03/09/20 20:00 76 03/09/20 19:10 77 24 40 03/09/20 16:00 Mechanical Ventilator 03/09/20 16:00 40 03/09/20 16:00 86 03/09/20 16:00 98.2 76 22 122/67 (85) 99 03/09/20 15:15 78 25 40 03/09/20 12:00 82 03/09/20 12:00 40 03/09/20 12:00 Mechanical Ventilator 03/09/20 12:00 97.9 74 20 134/90 (105) 95 03/09/20 11:22 70 25 40 Intake and Output 03/09/20 03/10/20 19:00 07:00 Intake Total 545 ml 935 ml Balance 545 ml 935 ml Intake Free Water 180 ml 60 ml IV Total 50 ml 560 ml Tube Feeding 315 ml 315 ml # Voids 1 Laboratory Tests 03/09/20 20:13: POC Whole Blood Glucose [Pending] 03/10/20 03:45: White Blood Count 26.0*H, Red Blood Count 2.68L, Hemoglobin 8.2L, Hematocrit 24.1L, Mean Corpuscular Volume 90, Mean Corpuscular Hemoglobin 30.6, Mean Corpuscular Hemoglobin Concent 34.0, Red Cell Distribution Width 15.6H, Platelet Count 93L, Mean Platelet Volume 11.0H, Neutrophils (%) (Auto) , Lymphocytes (%) (Auto) , Monocytes (%) (Auto) , Eosinophils (%) (Auto) , Basophils (%) (Auto) , Differential Total Cells Counted 100, Neutrophils % (Manual) 85H, Lymphocytes % (Manual) 12L, Monocytes % (Manual) 3, Eosinophils % (Manual) 0, Basophils % (Manual) 0, Band Neutrophils 0, Platelet Estimate DecreasedL, Platelet Morphology Normal, Hypochromasia 2+, Sodium Level 135L, Potassium Level 4.2, Chloride Level 99, Carbon Dioxide Level 19L, Anion Gap 17H, Blood Urea Nitrogen 110H, Creatinine 2.8H, Estimat Glomerular Filtration Rate 18.1, Glucose Level 115H, Calcium Level 6.3L, Phosphorus Level 8.0H, Magnesium Level 2.1, Total Bilirubin 0.4, Aspartate Amino Transf (AST/SGOT) 58H, Alanine Aminotransferase (ALT/SGPT) 17, Alkaline Phosphatase 171H, C-Reactive Protein, Quantitative 6.7H, Total Protein 4.9L, Albumin 1.9L, Globulin 3.0, Albumin/Globulin Ratio 0.6L 03/10/20 05:48: POC Whole Blood Glucose 123H Height (Feet): 5 Height (Inches): 3.00 Weight (Pounds): 128 General Appearance: no apparent distress EENT: normal ENT inspection Neck: supple Cardiovascular: normal rate Respiratory/Chest: decreased breath sounds Abdomen: normal bowel sounds, non tender, soft Extremities: non-tender Assessment/Plan Problem List: (1) Hx of CABG ICD Codes: Z95.1 - Presence of aortocoronary bypass graft SNOMED: 316079847, 114051175 (2) History of tracheostomy ICD Codes: Z98.890 - Other specified postprocedural states SNOMED: 043429486, 166585361 (3) PEG (percutaneous endoscopic gastrostomy) status ICD Codes: Z93.1 - Gastrostomy status SNOMED: 879961702, 487382589 (4) Renal failure ICD Codes: N19 - Unspecified kidney failure SNOMED: 72678186, 726551112 (5) Severe anemia ICD Codes: D64.9 - Anemia, unspecified SNOMED: 978876703 Assessment/Plan: s/p EGD gastric ulcer on ppi fu H&H>>>stable TF Inder Mccauley MD Mar 10, 2020 08:11
[2020-03-10] MEDS: AVIBACTAM IV SCH ×2 (08:20→20:54)
[2020-03-10] MEDS: Pantoprazole Inj IVP SCH ×2 (08:20→20:42)
[2020-03-10] MEDS: Dakin's 0.125% Soln (Quarter Strength) 16oz TOPIC SCH (08:20)
[2020-03-10] MEDS: D5W IV SCH ×2 (08:20→20:54)
[2020-03-10] MEDS: Midodrine 10mg tab GT SCH ×3 (08:20→18:02)
[2020-03-10] MEDS: Aspirin Baby 81mg GT SCH (08:20)
[2020-03-10] MEDS: CEFTAZIDIME IV SCH ×2 (08:20→20:54)
--- NOTE | 2020-03-10 08:33 | Pulmonology Progress Note ---
Subjective ROS Limited/Unobtainable: No Interval Events: none major reported per nursing HEENT: Repors: no symptoms Respiratory: Reports: no symptoms Cardiovascular: Reports: no symptoms Gastrointestinal/Abdominal: Reports: diarrhea Allergies: Coded Allergies: No Known Allergies (Unverified , 10/10/17) All Systems: reviewed and negative except above Objective Last 24 Hour Vital Signs Date Time Temp Pulse Resp B/P (MAP) Pulse Ox O2 Delivery O2 Flow Rate FiO2 03/10/20 08:18 73 03/10/20 08:00 97.9 76 21 126/70 (88) 99 03/10/20 08:00 Mechanical Ventilator 03/10/20 08:00 40 03/10/20 04:00 73 03/10/20 04:00 Mechanical Ventilator 03/10/20 04:00 98.1 72 26 114/66 (82) 99 03/10/20 03:00 73 20 40 03/10/20 00:32 Mechanical Ventilator 03/10/20 00:05 40 03/10/20 00:04 78 03/10/20 00:00 98.2 79 25 144/64 (90) 100 03/09/20 23:00 76 25 40 03/09/20 20:00 40 03/09/20 20:00 Mechanical Ventilator 03/09/20 20:00 Mechanical Ventilator 03/09/20 20:00 98.1 75 20 139/74 (95) 98 03/09/20 20:00 76 03/09/20 19:10 77 24 40 03/09/20 16:00 Mechanical Ventilator 03/09/20 16:00 40 03/09/20 16:00 86 03/09/20 16:00 98.2 76 22 122/67 (85) 99 03/09/20 15:15 78 25 40 03/09/20 12:00 82 03/09/20 12:00 40 03/09/20 12:00 Mechanical Ventilator 03/09/20 12:00 97.9 74 20 134/90 (105) 95 03/09/20 11:22 70 25 40 Intake and Output 03/09/20 03/10/20 19:00 07:00 Intake Total 545 ml 935 ml Balance 545 ml 935 ml Intake Free Water 180 ml 60 ml IV Total 50 ml 560 ml Tube Feeding 315 ml 315 ml # Voids 1 General Appearance: no acute distress HEENT: atraumatic Respiratory: lungs clear Cardiovascular: regular rhythm, bradycardia Extremities: other - edema bilateral Microbiology Date/Time Source Procedure Growth Status 03/08/20 10:43 Blood Blood Culture - Preliminary NO GROWTH AFTER 24 HOURS Resulted 03/08/20 10:33 Blood Blood Culture - Preliminary NO GROWTH AFTER 24 HOURS Resulted Laboratory Tests 03/09/20 20:13: POC Whole Blood Glucose [Pending] 03/10/20 03:45: White Blood Count 26.0*H, Red Blood Count 2.68L, Hemoglobin 8.2L, Hematocrit 24.1L, Mean Corpuscular Volume 90, Mean Corpuscular Hemoglobin 30.6, Mean Corpuscular Hemoglobin Concent 34.0, Red Cell Distribution Width 15.6H, Platelet Count 93L, Mean Platelet Volume 11.0H, Neutrophils (%) (Auto) , Lymphocytes (%) (Auto) , Monocytes (%) (Auto) , Eosinophils (%) (Auto) , Basophils (%) (Auto) , Differential Total Cells Counted 100, Neutrophils % (Manual) 85H, Lymphocytes % (Manual) 12L, Monocytes % (Manual) 3, Eosinophils % (Manual) 0, Basophils % (Manual) 0, Band Neutrophils 0, Platelet Estimate DecreasedL, Platelet Morphology Normal, Hypochromasia 2+, Sodium Level 135L, Potassium Level 4.2, Chloride Level 99, Carbon Dioxide Level 19L, Anion Gap 17H, Blood Urea Nitrogen 110H, Creatinine 2.8H, Estimat Glomerular Filtration Rate 18.1, Glucose Level 115H, Calcium Level 6.3L, Phosphorus Level 8.0H, Magnesium Level 2.1, Total Bilirubin 0.4, Aspartate Amino Transf (AST/SGOT) 58H, Alanine Aminotransferase (ALT/SGPT) 17, Alkaline Phosphatase 171H, C-Reactive Protein, Quantitative 6.7H, Total Protein 4.9L, Albumin 1.9L, Globulin 3.0, Albumin/Globulin Ratio 0.6L 03/10/20 05:48: POC Whole Blood Glucose 123H Current Medications Medications (Trade) Dose Ordered Sig/Penny Route PRN Reason Start Time Stop Time Status Last Admin Dose Admin Acetaminophen (Tylenol) 650 mg Q6H PRN GT Mild Pain (Pain Scale 1-3) 03/02/20 22:30 04/01/20 22:29 Acetaminophen (Tylenol) 650 mg Q6H PRN GT Temp >100.5 03/03/20 03:00 04/01/20 22:29 Aspirin (ASA) 81 mg DAILY GT 03/07/20 09:00 04/21/20 08:59 03/10/20 08:20 Barium Sulfate (Readi-Cat 2) 450 ml NOW PRN ORAL Radiology Procedure 03/08/20 10:15 03/10/20 10:14 Ceftazidime/ Avibactam 0.94 gm/ Dextrose 110 ml @ 110 mls/hr Q12HR IV 03/06/20 13:00 03/13/20 12:59 03/10/20 08:20 Chlorhexidine Gluconate (Ling-Hex 2%) 1 applic DAILY@2000 TOPIC 03/03/20 20:00 06/01/20 19:59 03/09/20 20:06 Dextrose 1,000 ml @ 50 mls/hr Q20H IV 03/08/20 13:00 04/07/20 12:59 03/10/20 04:54 Hydralazine HCl (Apresoline) 25 mg Q6H PRN GT For High Blood Pressure 03/02/20 22:00 05/31/20 21:59 Iohexol (OMNIPAQUE-300 100ml) 100 ml NOW PRN INJ Radiology Procedure 03/08/20 10:15 03/10/20 10:14 Loperamide HCl (Imodium) 2 mg Q6H PRN GT Diarrhea 03/06/20 12:45 04/05/20 12:44 03/06/20 13:01 Metoclopramide HCl (Reglan) 5 mg Q8HR IVP 03/04/20 11:45 04/03/20 11:44 03/10/20 05:58 Micafungin Sodium 100 mg/Sodium Chloride 110 ml @ 110 mls/hr Q24H IVPB 03/06/20 11:00 03/13/20 10:59 03/09/20 11:41 Midodrine (Pro-Amatine) 10 mg THREE TIMES A DAY GT 03/04/20 13:00 06/01/20 12:59 03/10/20 08:20 Pantoprazole (Protonix) 40 mg EVERY 12 HOURS IVP 03/04/20 21:00 04/02/20 20:59 03/10/20 08:20 Polyethylene Glycol (Miralax) 17 gm BEDTIME PRN GT Constipation 03/02/20 22:00 04/01/20 21:59 Pravastatin Sodium (Pravachol) 20 mg BEDTIME GT 03/07/20 21:00 04/06/20 20:59 03/09/20 20:06 Sodium Hypochlorite (Dakin's Quarter Strength) 1 applic DAILY TOPIC 03/04/20 09:00 04/03/20 08:59 03/10/20 08:20 Tobramycin Protocol (Tobramycin pharmacy to dose) 1 ea DAILY PRN MISC Per rx protocol 03/06/20 09:15 04/05/20 09:14 Tobramycin Sulfate 80 mg/ Sodium Chloride 55 ml @ 110 mls/hr POSTHD IV 03/06/20 12:00 03/13/20 11:59 03/09/20 14:03 Vancomycin HCl (Vanco pharmacy to dose) 1 ea DAILY PRN MISC Per rx protocol 03/03/20 09:15 04/02/20 09:14 Assessment/Plan Assessment/Plan 1. Chronic respiratory failure. - CT chest/abd/pelv: improving pleural effusion 2. Mechanical ventilation. - current setting at AC 14, Vt 500, FiO2 40%, PEEP 5 saturating at 97-98% - continue current setting - suction secretions as needed 3. Chronic tracheostomy. 4. Chronic G-tube. 5. Anemia. - s/p transfusion - stool OB positive 6. Renal failure. 7. Leukocytosis and sepsis. 8. Sepsis UTI 9. Gram positive cocci bacteremia 10. COVID-19 negative 11. Diarrhea - C. diff neg 12. Hypoglycemia - resolved 13. Bradycardia - no urgent indication for pacemaker per cardio 14. Gastric ulcer - on PPI - GI following We will follow carefully. ID and Hematology following. The care for this patient was discussed with my supervising physician Time spent for this case was approximately 31 minutes Cruz Wilson Mar 10, 2020 08:33
--- NOTE | 2020-03-10 09:00 | Infectious Diseases Prog Note ---
Assessment/Plan 49yo F with: MDR Kleb pna bacteremia AMS Anemia to 1.9 on admission 03/02 Leukocytosis to 40 GPC bacteremia UTI Pneumonia c/b mod-large R pleural effusion and small L pleural effusion - compressive atelectasis Hypotension 03/02 BCx 1/2 +Staph epi, 1 +Staph haemolyticus (m/l skin colonizers) UA+, UCx >100k P.stuartii (S-angelo) & CRE P.mirablis (R-polyB/colistin, S- tobramycin) COVID rapid neg, PCR neg CXR: Tracheostomy again demonstrated. Interim placement of a right jugular tunneled dialysis catheter. There is infiltrate and volume loss in the left lung, particularly in the perihilar region, suprahilar region, and base. Consolidation at the lung base is similar. The perihilar and suprahilar region consolidation is new. The right lung pleural space are clear. C.dif neg 03/03 BCx NTD 03/06 BCx 03/17 +MDR Kleb pna (arnett-R), 02/14 +E.faecium VRE 03/08 BCx NTD 03/09 CT CAP: Very limited exam, as described, due to massive anasarca. This could limit visualization of the discrete fluid collection such as an abscess. Extensive thoracoabdominal aortic dissection, as described above. Current flap begins just distal to the left subclavian artery origin; per report, there is history of surgical repair so there may have been surgical repair of the ascending thoracic aorta. Bilateral pleural effusions, slightly smaller than on earlier exams. Extensive atelectasis as a result. Extensive pulmonary parenchymal disease as detailed above. This may reflect pneumonia or pulmonary edema or both. Evidence of pulmonary arterial hypertension, with dilatation of the pulmonary artery. Considerable ascites fluid. AF Sepsis Leukocytosis Hypoxia on vent Pneumonia c/b L pleural effusion (recurrent, prior determined to be transudative) - s/p thora 01/21, 1050cc removed Volume overload, BNP >35,0000, likely 2/2 progressive CKD --> ESRD ?Pancreatitis, Lipase >2000 Acute anemia to 5s CONS bacteremia, ?contaminant Aflutter w/ RVR 01/13 BCx 2/2 +S. epi COVID PCR neg Flu neg CXR: Large left pleural effusion. Bilateral interstitial and airspace infiltrates versus edema MRSA nares neg 01/16 BCx NTD 01/17 BCx /2 +Staph auricularis (skin colonizer) 01/18 Resp cx +MDR CRE PsA (S-gent, I-colistin, R-polyB) 01/18 C.dif neg 01/18 CXR: Similar opacification of the left hemithorax likely representing combination of pleural effusion with atelectasis versus pneumonia/edema. Decreased but persistent hazy opacity throughout the right lung may represent edema versus infectious/inflammatory process. 01/20 BCx NTD 01/21 L thora 1050 cc removed, cx NTD 01/25 Wound cx from Gtube site +CRE Kleb pna (arnett-R) and MDR PsA (colonizers) 01/26 CT A/P: Limited exam, due to severe diffuse anasarca. Ascites. Bilateral pleural effusions. Basilar pulmonary atelectatic changes and consolidation. Gastrostomy. Atrophic left kidney with a nephroureteral stents again demonstrated. Possible retrococcygeal decubitus changes. Correlate with clinical findings, consider MRI if there is concern for sacral osteomyelitis. Right hip intertrochanteric fracture, also previously demonstrated. Left femoral dialysis catheter. Nonspecific right lobe liver lesion is unchanged, not well- demonstrated. ctasia bordering on aneurysmal dilatation and possible chronic dissection of the distal thoracic aorta, also previously described. JAVIER on CKD On previous admission Sep-Oct 2019 required HD for short period Going to start HD this admission again R/o COVID 01/14 COVID PCR neg 12/29 neg at [facility] per report H/o UTI 11/27 u/a wbc 30-40, nit neg, leuk +3; ucx ESBL P. mirablis, ESBL M. morganii 09/15/19 u/a wbc tnct, nit neg, leuk +3; ucx >100k MDR P. stuarti (S Ceftriaxone, Meropenem) 10/07 u/a wbc tnct, nit neg, leuk ; ucx >100k VRE 10/15/19 u/a wbc tnct; ucx >100k ESBL P. stuarti (S ertapenem, aztreonam) H/o transudative pleural effusion 11/28 Sp Thora (w: 169, PMN: 2%, L: 49% , LDH: 57, prot 2.5); cx Neg H/o PNA 10/15/19 Resp cx ESBL P. mirabilis, MDR P.a. (S only to Gent) 09/22 Resp cx + MDR PsA (S-gent; I-colistin; R-levofloxacin, Zosyn, angelo) 09/16/19 Sp cx ESBL P. mirablis H/o PPM site (pocket) infection and pocket abscess 2ry to S. epi-11/2018, sp >6weeks IV vancomycin 11/27 SP ABBIE: no evidence for vegetation on any of the valves 11/26/18 SP PPM removal: OR findings:The fibrous capsule enclosing the generator was then opened and there was a [id number] amount of yellowish fluid drainage. The generator was then removed.Atrial and ventricular leads were detached. The necrotic tissue of the pocket was then removed and the pocket was flushed with an antibiotic solution. Capsule, wound tissue and lead tip cx: Neg 2d echo: no vegetation seen US chest: 4.6 x 3.4 x 0.9 cm hypoechoic/anechoic area overlying left chest pacemaker power pack. This could represent either a discrete fluid collection or a focal area of very edematous tissue. Infected fluid pocket also possible. 11/18 Bcx 3/4 S. epi; 11/20 Bcx neg; 11/24 Bcx Neg; 11/27 Bcx Neg CAD s/p CABG GERD/gastritis Afib HTN Dysphagia sp GT Aortic dissection s/p repair 2017 S/p PPM Parkinson's Disease Schizophrenia Anxiety COPD Chronic resp failure s/p trach Hx of tracheal bleeding [place] resident ([facility]) VRE and MRSA colonized Plan: Stop edson #4 given no e/o fungal infection Stop vanco IV #9 given CONS bacteremia/sepsis Start daptomycin #1 given transient VRE bacteremia, sepsis Check CK Cont tobramycin #5 per Pharmacy given UCx results Cont Avycaz #5 given MDR Kleb pna bacteremia Appreciate Pulm input on large R pleural effusion - recommend thoracentesis to r/o empyema given ongoing leukocytosis Appreciate Surgery input on thoracic aortic aneurysm noted on CT imaging - d/w Dr. Saavedra, pt needs emergent transfer out for CT surgery evaluation Given somewhat transient MDR Kleb pna bacteremia (was not on admission BCx and cleared rapidly after positive BCx), no current indication to remove Permacath a s less likely 2/2 line infection and more likely 2/2 gut translocation in setting of GIB, though if leukocytosis persists despite appropriate abx, then will have to reconsider. F/u 03/06 BCx +MDR Kleb pna - need sensi to Avycaz/Zerbaxa, colistin/polyB (d/w lab, will perform) F/u 03/06 BCx +GPCs (prelim from lab is VRE) D/w Micro lab about obtaining UCx sensi to Avycaz/Zerbaxa, f/u results Trend Hg, GIB Trend BP, WBC 03/10/20 SP edson #4 empiric 01/31 SP angelo/inh tobra #10 for pna 01/23 SP vanco IV #10 given CONS/GPC bacteremia 01/16 SP Zosyn #2 01/14 SP dex 10mg in ED 12/10 SP IV Gentamycin #10 12/07 SP Meropenem #10 12/01 SP IV Vancomycin #5 11/28 Sp Cefepime #2 and IV Gentamycin x1 Monitor CBC/CMP Monitor temp curve, hemodynamics Monitor resp status D/w RN and Surgery Dr. Saavedra Thank you for this consult. [facility] will continue to follow. Subjective Allergies: Coded Allergies: No Known Allergies (Unverified , 10/10/17) AF WBC improving to 26 BCx +MDR Kleb pna CT chest w/ large R pleural effusion, thoracic aortic aneurysm w/ false lumen BP ok Objective Last 24 Hour Vital Signs Date Time Temp Pulse Resp B/P (MAP) Pulse Ox O2 Delivery O2 Flow Rate FiO2 03/10/20 08:18 73 03/10/20 08:00 97.9 76 21 126/70 (88) 99 03/10/20 08:00 Mechanical Ventilator 03/10/20 08:00 40 03/10/20 04:00 73 03/10/20 04:00 Mechanical Ventilator 03/10/20 04:00 98.1 72 26 114/66 (82) 99 03/10/20 03:00 73 20 40 03/10/20 00:32 Mechanical Ventilator 03/10/20 00:05 40 03/10/20 00:04 78 03/10/20 00:00 98.2 79 25 144/64 (90) 100 1/25/21 23:00 76 25 40 03/09/20 20:00 40 03/09/20 20:00 Mechanical Ventilator 03/09/20 20:00 Mechanical Ventilator 03/09/20 20:00 98.1 75 20 139/74 (95) 98 03/09/20 20:00 76 03/09/20 19:10 77 24 40 03/09/20 16:00 Mechanical Ventilator 03/09/20 16:00 40 03/09/20 16:00 86 03/09/20 16:00 98.2 76 22 122/67 (85) 99 03/09/20 15:15 78 25 40 03/09/20 12:00 82 03/09/20 12:00 40 03/09/20 12:00 Mechanical Ventilator 03/09/20 12:00 97.9 74 20 134/90 (105) 95 03/09/20 11:22 70 25 40 Height (Feet): 5 Height (Inches): 3.00 Weight (Pounds): 128 Gen: NAD HEENT: NCAT, trach Pulm: BL chest rise on vent Abd: Soft, NTND, +PEG Ext: No c/c/e Skin: No visible rashes Neuro: Awake, minimally interactive Lines: R chest Permacath dressing c/d/i Microbiology Date/Time Source Procedure Growth Status 03/08/20 10:43 Blood Blood Culture - Preliminary NO GROWTH AFTER 24 HOURS Resulted 03/08/20 10:33 Blood Blood Culture - Preliminary NO GROWTH AFTER 24 HOURS Resulted Laboratory Tests Test 03/09/20 20:13 03/10/20 03:45 03/10/20 05:48 POC Whole Blood Glucose Pending 123 MG/DL (74-106) H White Blood Count 26.0 K/UL (4.8-10.8) *H Red Blood Count 2.68 M/UL (4.20-5.40) L Hemoglobin 8.2 G/DL (12.0-16.0) L Hematocrit 24.1 % (37.0-47.0) L Mean Corpuscular Volume 90 FL (80-99) Mean Corpuscular Hemoglobin 30.6 PG (27.0-31.0) Mean Corpuscular Hemoglobin Concent 34.0 G/DL (32.0-36.0) Red Cell Distribution Width 15.6 % (11.6-14.8) H Platelet Count 93 K/UL (150-450) L Mean Platelet Volume 11.0 FL (6.5-10.1) H Neutrophils (%) (Auto) % (45.0-75.0) Lymphocytes (%) (Auto) % (20.0-45.0) Monocytes (%) (Auto) % (1.0-10.0) Eosinophils (%) (Auto) % (0.0-3.0) Basophils (%) (Auto) % (0.0-2.0) Differential Total Cells Counted 100 Neutrophils % (Manual) 85 % (45-75) H Lymphocytes % (Manual) 12 % (20-45) L Monocytes % (Manual) 3 % (1-10) Eosinophils % (Manual) 0 % (0-3) Basophils % (Manual) 0 % (0-2) Band Neutrophils 0 % (0-8) Platelet Estimate Decreased L Platelet Morphology Normal Hypochromasia 2+ Sodium Level 135 MMOL/L (136-145) L Potassium Level 4.2 MMOL/L (3.5-5.1) Chloride Level 99 MMOL/L (98-107) Carbon Dioxide Level 19 MMOL/L (21-32) L Anion Gap 17 mmol/L (5-15) H Blood Urea Nitrogen 110 mg/dL (7-18) H Creatinine 2.8 MG/DL (0.55-1.30) H Estimat Glomerular Filtration Rate 18.1 mL/min (>60) Glucose Level 115 MG/DL (74-106) H Calcium Level 6.3 MG/DL (8.5-10.1) L Phosphorus Level 8.0 MG/DL (2.5-4.9) H Magnesium Level 2.1 MG/DL (1.8-2.4) Total Bilirubin 0.4 MG/DL (0.2-1.0) Aspartate Amino Transf (AST/SGOT) 58 U/L (15-37) H Alanine Aminotransferase (ALT/SGPT) 17 U/L (12-78) Alkaline Phosphatase 171 U/L (46-116) H C-Reactive Protein, Quantitative 6.7 mg/dL (0.00-0.90) H Total Protein 4.9 G/DL (6.4-8.2) L Albumin 1.9 G/DL (3.4-5.0) L Globulin 3.0 g/dL Albumin/Globulin Ratio 0.6 (1.0-2.7) L Current Medications Medications (Trade) Dose Ordered Sig/Penny Route PRN Reason Start Time Stop Time Status Last Admin Dose Admin Acetaminophen (Tylenol) 650 mg Q6H PRN GT Mild Pain (Pain Scale 1-3) 03/02/20 22:30 04/01/20 22:29 Acetaminophen (Tylenol) 650 mg Q6H PRN GT Temp >100.5 03/03/20 03:00 04/01/20 22:29 Aspirin (ASA) 81 mg DAILY GT 03/07/20 09:00 04/21/20 08:59 03/10/20 08:20 Barium Sulfate (Readi-Cat 2) 450 ml NOW PRN ORAL Radiology Procedure 03/08/20 10:15 03/10/20 10:14 Ceftazidime/ Avibactam 0.94 gm/ Dextrose 110 ml @ 110 mls/hr Q12HR IV 03/06/20 13:00 03/13/20 12:59 03/10/20 08:20 Chlorhexidine Gluconate (Ling-Hex 2%) 1 applic DAILY@2000 TOPIC 03/03/20 20:00 06/01/20 19:59 03/09/20 20:06 Dextrose 1,000 ml @ 50 mls/hr Q20H IV 03/08/20 13:00 04/07/20 12:59 03/10/20 04:54 Hydralazine HCl (Apresoline) 25 mg Q6H PRN GT For High Blood Pressure 03/02/20 22:00 05/31/20 21:59 Iohexol (OMNIPAQUE-300 100ml) 100 ml NOW PRN INJ Radiology Procedure 03/08/20 10:15 03/10/20 10:14 Loperamide HCl (Imodium) 2 mg Q6H PRN GT Diarrhea 03/06/20 12:45 04/05/20 12:44 03/06/20 13:01 Metoclopramide HCl (Reglan) 5 mg Q8HR IVP 03/04/20 11:45 04/03/20 11:44 03/10/20 05:58 Micafungin Sodium 100 mg/Sodium Chloride 110 ml @ 110 mls/hr Q24H IVPB 03/06/20 11:00 03/13/20 10:59 03/09/20 11:41 Midodrine (Pro-Amatine) 10 mg THREE TIMES A DAY GT 03/04/20 13:00 06/01/20 12:59 03/10/20 08:20 Pantoprazole (Protonix) 40 mg EVERY 12 HOURS IVP 03/04/20 21:00 04/02/20 20:59 03/10/20 08:20 Polyethylene Glycol (Miralax) 17 gm BEDTIME PRN GT Constipation 03/02/20 22:00 04/01/20 21:59 Pravastatin Sodium (Pravachol) 20 mg BEDTIME GT 03/07/20 21:00 04/06/20 20:59 03/09/20 20:06 Sodium Hypochlorite (Dakin's Quarter Strength) 1 applic DAILY TOPIC 03/04/20 09:00 04/03/20 08:59 03/10/20 08:20 Tobramycin Protocol (Tobramycin pharmacy to dose) 1 ea DAILY PRN MISC Per rx protocol 03/06/20 09:15 04/05/20 09:14 Tobramycin Sulfate 80 mg/ Sodium Chloride 55 ml @ 110 mls/hr POSTHD IV 03/06/20 12:00 03/13/20 11:59 03/09/20 14:03 Vancomycin HCl (Vanco pharmacy to dose) 1 ea DAILY PRN MISC Per rx protocol 03/03/20 09:15 04/02/20 09:14 Ro Pack M.D. Mar 10, 2020 09:00
--- NOTE | 2020-03-10 10:05 | Nephrology Progress Note ---
Assessment/Plan Problem List: (1) Renal failure (ARF), acute on chronic (2) Anemia (3) Hyponatremia (4) Respiratory failure Assessment (1) JAVIER (acute kidney injury) (2) Renal failure (ARF), acute on chronic (3) Feeding by G-tube (4) Tracheostomy in place (5) Electrolyte imbalance, hyponatremia (6) Anemia, severe (7) Respiratory failure, acute and chronic (8) history of elevated lipase, pancreatitis (9) Elevated troponin I (10) Sepsis Plan March 10: Labs reviewed. Will order dialysis tomorrow. Phosphorus binders added. Continue per consultants. March 09: No chemistry panel done today. Patient dialyzed yesterday. On dextrose 10% for hypoglycemia. We will check labs tomorrow. Dialysis as needed. March 08: Labs reviewed. Will order dialysis today. Blood sugar low. D10 50 cc an hour started. Continue as is. March 07: Labs reviewed. Dialyzed March 05 and March 06. Continue to monitor renal parameters and hemoglobin. Abnormal electrolytes addressed. IV fluids stopped. Per orders. March 06: Labs reviewed. Dialyzed yesterday. Will reorder dialysis for today. Continue to monitor renal parameters. Hemoglobin 8.4. Patient full code. March 05: Labs reviewed. Patient did not receive dialysis until this morning. Proceed with dialysis. Continue to monitor renal parameters and hemoglobin and hematocrit. March 04: Labs reviewed. Hemoglobin lower. Patient actively bleeding. Was not dialyzed yesterday. Due for GI endoscopy. Continue fluid challenge. Transfusion as needed. Dialysis today. March 03: Labs reviewed. Dialysis ordered. Blood pressure medication all discontinued due to hypotensive state. Albumin bolus given. Continue to monitor renal parameters. Medication list reviewed. Midodrin for low blood pressure ordered Subjective ROS Limited/Unobtainable: Yes Objective Objective Last 24 Hour Vital Signs Date Time Temp Pulse Resp B/P (MAP) Pulse Ox O2 Delivery O2 Flow Rate FiO2 03/10/20 08:18 73 03/10/20 08:00 97.9 76 21 126/70 (88) 99 03/10/20 08:00 Mechanical Ventilator 03/10/20 08:00 40 03/10/20 04:00 73 03/10/20 04:00 Mechanical Ventilator 03/10/20 04:00 98.1 72 26 114/66 (82) 99 03/10/20 03:00 73 20 40 03/10/20 00:32 Mechanical Ventilator 03/10/20 00:05 40 03/10/20 00:04 78 03/10/20 00:00 98.2 79 25 144/64 (90) 100 03/09/20 23:00 76 25 40 03/09/20 20:00 40 03/09/20 20:00 Mechanical Ventilator 03/09/20 20:00 Mechanical Ventilator 03/09/20 20:00 98.1 75 20 139/74 (95) 98 03/09/20 20:00 76 03/09/20 19:10 77 24 40 03/09/20 16:00 Mechanical Ventilator 03/09/20 16:00 40 03/09/20 16:00 86 03/09/20 16:00 98.2 76 22 122/67 (85) 99 03/09/20 15:15 78 25 40 03/09/20 12:00 82 03/09/20 12:00 40 03/09/20 12:00 Mechanical Ventilator 03/09/20 12:00 97.9 74 20 134/90 (105) 95 03/09/20 11:22 70 25 40 Intake and Output 03/09/20 03/10/20 19:00 07:00 Intake Total 545 ml 935 ml Balance 545 ml 935 ml Intake Free Water 180 ml 60 ml IV Total 50 ml 560 ml Tube Feeding 315 ml 315 ml # Voids 1 Current Medications Medications (Trade) Dose Ordered Sig/Penny Route PRN Reason Start Time Stop Time Status Last Admin Dose Admin Acetaminophen (Tylenol) 650 mg Q6H PRN GT Mild Pain (Pain Scale 1-3) 03/02/20 22:30 04/01/20 22:29 Acetaminophen (Tylenol) 650 mg Q6H PRN GT Temp >100.5 03/03/20 03:00 04/01/20 22:29 Aspirin (ASA) 81 mg DAILY GT 03/07/20 09:00 04/21/20 08:59 03/10/20 08:20 Barium Sulfate (Readi-Cat 2) 450 ml NOW PRN ORAL Radiology Procedure 03/08/20 10:15 03/10/20 10:14 Ceftazidime/ Avibactam 0.94 gm/ Dextrose 110 ml @ 110 mls/hr Q12HR IV 03/06/20 13:00 03/20/20 23:59 03/10/20 08:20 Chlorhexidine Gluconate (Ling-Hex 2%) 1 applic DAILY@2000 TOPIC 03/03/20 20:00 06/01/20 19:59 03/09/20 20:06 Dextrose 1,000 ml @ 50 mls/hr Q20H IV 03/08/20 13:00 04/07/20 12:59 03/10/20 04:54 Hydralazine HCl (Apresoline) 25 mg Q6H PRN GT For High Blood Pressure 03/02/20 22:00 05/31/20 21:59 Iohexol (OMNIPAQUE-300 100ml) 100 ml NOW PRN INJ Radiology Procedure 03/08/20 10:15 03/10/20 10:14 Loperamide HCl (Imodium) 2 mg Q6H PRN GT Diarrhea 03/06/20 12:45 04/05/20 12:44 03/06/20 13:01 Metoclopramide HCl (Reglan) 5 mg Q8HR IVP 03/04/20 11:45 04/03/20 11:44 03/10/20 05:58 Midodrine (Pro-Amatine) 10 mg THREE TIMES A DAY GT 03/04/20 13:00 06/01/20 12:59 03/10/20 08:20 Pantoprazole (Protonix) 40 mg EVERY 12 HOURS IVP 03/04/20 21:00 04/02/20 20:59 03/10/20 08:20 Polyethylene Glycol (Miralax) 17 gm BEDTIME PRN GT Constipation 03/02/20 22:00 04/01/20 21:59 Pravastatin Sodium (Pravachol) 20 mg BEDTIME GT 03/07/20 21:00 04/06/20 20:59 03/09/20 20:06 Sodium Hypochlorite (Dakin's Quarter Strength) 1 applic DAILY TOPIC 03/04/20 09:00 04/03/20 08:59 03/10/20 08:20 Tobramycin Protocol (Tobramycin pharmacy to dose) 1 ea DAILY PRN MISC Per rx protocol 03/06/20 09:15 04/05/20 09:14 Tobramycin Sulfate 80 mg/ Sodium Chloride 55 ml @ 110 mls/hr POSTHD IV 03/06/20 12:00 03/13/20 11:59 03/09/20 14:03 Vancomycin HCl ([facility] pharmacy to dose) 1 ea DAILY PRN MISC Per rx protocol 03/03/20 09:15 04/02/20 09:14 Laboratory Tests 03/09/20 20:13: POC Whole Blood Glucose [Pending] 03/10/20 03:45: White Blood Count 26.0*H, Red Blood Count 2.68L, Hemoglobin 8.2L, Hematocrit 24.1L, Mean Corpuscular Volume 90, Mean Corpuscular Hemoglobin 30.6, Mean Corpuscular Hemoglobin Concent 34.0, Red Cell Distribution Width 15.6H, Platelet Count 93L, Mean Platelet Volume 11.0H, Neutrophils (%) (Auto) , Lymphocytes (%) (Auto) , Monocytes (%) (Auto) , Eosinophils (%) (Auto) , Basophils (%) (Auto) , Differential Total Cells Counted 100, Neutrophils % (Manual) 85H, Lymphocytes % (Manual) 12L, Monocytes % (Manual) 3, Eosinophils % (Manual) 0, Basophils % (Manual) 0, Band Neutrophils 0, Platelet Estimate DecreasedL, Platelet Morphology Normal, Hypochromasia 2+, Sodium Level 135L, Potassium Level 4.2, Chloride Level 99, Carbon Dioxide Level 19L, Anion Gap 17H, Blood Urea Nitrogen 110H, Creatinine 2.8H, Estimat Glomerular Filtration Rate 18.1, Glucose Level 115H, Calcium Level 6.3L, Phosphorus Level 8.0H, Magnesium Level 2.1, Total Bilirubin 0.4, Aspartate Amino Transf (AST/SGOT) 58H, Alanine Aminotransferase (ALT/SGPT) 17, Alkaline Phosphatase 171H, C-Reactive Protein, Quantitative 6.7H, Total Protein 4.9L, Albumin 1.9L, Globulin 3.0, Albumin/Globulin Ratio 0.6L 03/10/20 05:48: POC Whole Blood Glucose 123H Height (Feet): 5 Height (Inches): 3.00 Weight (Pounds): 128 General Appearance: no apparent distress, lethargic Cardiovascular: normal rate Respiratory/Chest: decreased breath sounds Abdomen: distended Johnny Houston MD Mar 10, 2020 10:05
--- NOTE | 2020-03-10 10:34 | NUR ---
NURSE NOTES: Called [facility] dialysis to set up Hd for tomorrow 03/11/20. Spoke with
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
--- NOTE | 2020-03-10 10:56 | NUR ---
RD ASSESSMENT & RECOMMENDATIONS SEE CARE ACTIVITY FOR COMPLETE ASSESSMENT DAILY ESTIMATED NEEDS: Needs based on Critical care, wound, renal dysfunction 59.5 kg 27-22 kcals/kg 5927-7174 total kcals W/ HD (1.5-2.0) g protein/kg 89-119 g total protein Fluid per MD NUTRITION DIAGNOSIS: * Swallowing difficulty R/T dysphagia, respiratory status as evidenced by vent dep via trach, GT Dep. * Increase kcal and pro needs r/t wound healing, renal dysfunction as evidenced by h/o stage 4 sacral wound, and HD. CURRENT TF: Nepro @ 35ml/hr x 24 hrs ENTERAL NUTRITION RECOMMENDATIONS: Nepro @40ml/hr x 24 hrs + Prosource 1pkt BID to provide 960ml, 1728kcal,, 78g+22g prot, 779ml free water * Advance as tolerated to goal. * Add Prosource 1pkt QD to better meet increased protein needs (additional 11g prot) * Water flush per MD/ HOB over 30 degrees ADDITIONAL RECOMMENDATIONS: * Maintain calibrated bed scale * Monitor for HD continuity * WC eval-> w/ TF orders add FRANKLIN in 4oz H2O BID via GT Vit C per nephrology, Nephrovite 1 tab daily. * Rec accuchecks, monitor BGs closely for hypoglycemia (BG 24 03/08) : now on D10@ 50 (additional 120g dextrose) .
[2020-03-10 11:19] LABS: CREATINE KINASE 352 U/L (26-308)
[2020-03-10] MEDS: Renvela 800mg Pkt NG SCH ×2 (11:42→18:02)
[2020-03-10 12:00] VITALS: BP 122/70
--- NOTE | 2020-03-10 12:32 | NUR ---
CASE MANAGEMENT:REVIEW 03/10/20 SI: SEPSIS. AC/CHR RENAL FAILURE(WORSENING RENAL FXN) TRACH/VENT/GT 98.2 72 19 122/70 99% ON VENT SUPPORT W/40% FIO2 WBC+26.0 PLT-93 BUN+110 CR+2.8 IS: IV DAPTOMYCIN Q48HRS IV CEFTAZIDIME Q12 IV TOBRAMYCIN POST HD IVF@50/HR ASA GT QD IV PROTONIX Q12 IV REGLAN Q8HR : STEP DOWN UNIT DCP: FROM [facility] PINEDA
[2020-03-10] MEDS: SODIUM CHLORIDE IV SCH (13:11)
[2020-03-10] MEDS: DAPTOMYCIN 500 MG IV SCH (13:11)
--- NOTE | 2020-03-10 13:46 | NUR ---
INSURANCE CLINCALS AND REVIEW FAXED TO [facility] T: [phone] F: [phone]
[2020-03-10 16:00] VITALS: BP 133/73
--- NOTE | 2020-03-10 17:32 | General Progress Note ---
Subjective Constitutional: Reports: no symptoms HEENT: Reports: no symptoms Cardiovascular: Reports: no symptoms Respiratory: Reports: no symptoms Gastrointestinal/Abdominal: Reports: no symptoms Genitourinary: Reports: no symptoms Neurologic/Psychiatric: Reports: no symptoms Endocrine: Reports: no symptoms Hematologic/Lymphatic: Reports: no symptoms Allergies: Coded Allergies: No Known Allergies (Unverified , 10/10/17) Objective Last 24 Hour Vital Signs Date Time Temp Pulse Resp B/P (MAP) Pulse Ox O2 Delivery O2 Flow Rate FiO2 03/10/20 16:00 68 03/10/20 16:00 40 03/10/20 16:00 98.1 66 21 133/73 (93) 99 03/10/20 16:00 Mechanical Ventilator 03/10/20 12:00 66 03/10/20 12:00 Mechanical Ventilator 03/10/20 12:00 98.2 72 19 122/70 (87) 99 03/10/20 12:00 40 03/10/20 08:18 73 03/10/20 08:00 97.9 76 21 126/70 (88) 99 03/10/20 08:00 Mechanical Ventilator 03/10/20 08:00 40 03/10/20 04:00 73 03/10/20 04:00 Mechanical Ventilator 03/10/20 04:00 98.1 72 26 114/66 (82) 99 03/10/20 03:00 73 20 40 03/10/20 00:32 Mechanical Ventilator 03/10/20 00:05 40 03/10/20 00:04 78 03/10/20 00:00 98.2 79 25 144/64 (90) 100 03/09/20 23:00 76 25 40 03/09/20 20:00 40 03/09/20 20:00 Mechanical Ventilator 03/09/20 20:00 Mechanical Ventilator 03/09/20 20:00 98.1 75 20 139/74 (95) 98 03/09/20 20:00 76 03/09/20 19:10 77 24 40 Intake and Output 03/09/20 03/10/20 19:00 07:00 Intake Total 545 ml 935 ml Balance 545 ml 935 ml Intake Free Water 180 ml 60 ml IV Total 50 ml 560 ml Tube Feeding 315 ml 315 ml # Voids 1 Laboratory Tests 03/09/20 20:13: POC Whole Blood Glucose [Pending] 1/26/21 03:45: White Blood Count 26.0*H, Red Blood Count 2.68L, Hemoglobin 8.2L, Hematocrit 24.1L, Mean Corpuscular Volume 90, Mean Corpuscular Hemoglobin 30.6, Mean Corpuscular Hemoglobin Concent 34.0, Red Cell Distribution Width 15.6H, Platelet Count 93L, Mean Platelet Volume 11.0H, Neutrophils (%) (Auto) , Lymphocytes (%) (Auto) , Monocytes (%) (Auto) , Eosinophils (%) (Auto) , Basophils (%) (Auto) , Differential Total Cells Counted 100, Neutrophils % (Manual) 85H, Lymphocytes % (Manual) 12L, Monocytes % (Manual) 3, Eosinophils % (Manual) 0, Basophils % (Manual) 0, Band Neutrophils 0, Platelet Estimate DecreasedL, Platelet Morphology Normal, Hypochromasia 2+, Sodium Level 135L, Potassium Level 4.2, Chloride Level 99, Carbon Dioxide Level 19L, Anion Gap 17H, Blood Urea Nitrogen 110H, Creatinine 2.8H, Estimat Glomerular Filtration Rate 18.1, Glucose Level 115H, Calcium Level 6.3L, Phosphorus Level 8.0H, Magnesium Level 2.1, Total Bilirubin 0.4, Aspartate Amino Transf (AST/SGOT) 58H, Alanine Aminotransferase (ALT/SGPT) 17, Alkaline Phosphatase 171H, Total Creatine Kinase 352H, C-Reactive Protein, Quantitative 6.7H, Total Protein 4.9L, Albumin 1.9L, Globulin 3.0, Albumin/Globulin Ratio 0.6L 03/10/20 05:48: POC Whole Blood Glucose 123H Height (Feet): 5 Height (Inches): 3.00 Weight (Pounds): 128 General Appearance: WD/WN, no apparent distress, alert, lethargic EENT: normal ENT inspection Neck: supple Cardiovascular: normal rate, regular rhythm, no gallop/murmur, no JVD Respiratory/Chest: decreased breath sounds, rhonchi - left Abdomen: normal bowel sounds, non tender, soft, no organomegaly, no mass Extremities: non-tender Edema: 2+ Leg (R), 2+ Pedal (L) Edema: mild edema Neurologic: alert, responsive Assessment/Plan Status Narrative Patient is awake with eye contact but no verbal response and no attempt to communicate he appears more lethargic than yesterday still able to smile she still have 2+ edema in both lower extremities signs are normal and she does not have any bradycardia leukocytosis decline currently on IV case tobramycin vancomycin was DC'd micafungin was DC'd and she is now on daptomycin for significant finding in the last [address] scan of the chest of the abdomen that shows a aortic dissection dissection in the thoracic and in the abdominal area believe the patient had already in the past repair of a dissection this was never obtained by history from her for history that she gave was coronary artery disease clearly patient is to be transferred to higher level of care location of the surgical complexity of the dissection in 2 different territories patient will be transferred to an academic institution for assessment and decision for repair she is completely asymptomatic in regard to and pancreatitis of abdominal pain nausea vomiting or diarrhea repeat laboratory tests will be done in a.m. we will repeat the chest ultrasound bilaterally Lucas Canales MD, MD Mar 10, 2020 17:32
--- NOTE | 2020-03-10 18:16 | NUR ---
[employer]ISING [employer] NOTES RECEIVED A CALL FROM ,REQUESTING A TRANSFER TO A HIGHER LEVEL OF CARE. LEFT MESSAGE FOR [facility] FOR ASSISTANCE IN CONTRACTED FACILITY. REFERRAL FAXED TO [facility] FOR ACCEPTANCE. WILL FOLLOW UP. [facility] IS AT CAPACITY AT THIS TIME. WILL FOLLOW UP IN AM FOR VACANCIES.
--- NOTE | 2020-03-10 19:00 | NUR ---
NURSE HAND-OFF REPORT: Important Events on Shift:NA Patient Status: Stable Diet: Nepro @35 Pending Orders: NA Pending Results/Labs:NA Pending notification:NA Latest Vital Signs: Temperature 98.1 , Pulse 68 , B/P 133 /73 , Respiratory Rate 21 , O2 SAT 99 , Mechanical Ventilator, O2 Flow Rate . Vital Sign Comment: Stable EKG Rhythm: Sinus Rhythm Rhythm change?: N MD Notified?: N -Dr Екатерина HATFIELD Response: No New Orders Received Latest Chavarria Fall Score: 50 Fall Risk: High Risk Safety Measures: Call light Within Reach, Bed Alarm Zone 1, Side Rails Side Rails x2, Bed position Low and Locked. Fall Precautions: Yellow Socks Report given to ERASMO Irving.
--- NOTE | 2020-03-10 19:43 | NUR ---
NURSE NOTES: Received patient from ERASMO Ang. Patient is asleep at the moment. Patient shows no signs of distress or pain at the time. Patient is on Ventilator Shiley 7, AC 14, TV 500, FIO2 40, PIP 5. Patient shows no signs of respiratory distress at the time. IV sites are patent and flushed. There are no signs of erythema, infiltration, or bleeding at the time. Patient running D10 @ 50 cc/hr. G tube running Nepro @ 35 cc/hr. Bed is in the lowest position, call light is within reach, side rails up x3. Will continue to monitor.
[2020-03-10 20:00] VITALS: BP 122/57
[2020-03-10] MEDS: Dyna-Hex 2% Top Sol 2oz TOPIC SCH (20:41)
[2020-03-11] VITALS: BP 127/58
[2020-03-11] MEDS: Renvela 800mg Pkt NG SCH ×5 (00:20→23:14)
[2020-03-11] MEDS: Dextrose 10% 1,000 ML IV SCH (00:30)
--- NOTE | 2020-03-11 01:31 | Cardiology Progress Note ---
Subjective DATE OF SERVICE: Mar 10, 2020 Occasional episodes of sinus bradycardia mostly during sleep; asymptomatic. Heart rates mostly 70's during day. BP parameters stable. CT scan now reveals two areas of aortic dissection. Objective Last 24 Hour Vital Signs Date Time Temp Pulse Resp B/P (MAP) Pulse Ox O2 Delivery O2 Flow Rate FiO2 03/11/20 00:00 97.7 65 22 127/58 (81) 100 03/11/20 00:00 40 03/11/20 00:00 Mechanical Ventilator 03/10/20 23:56 62 16 40 03/10/20 20:09 40 03/10/20 20:00 Mechanical Ventilator 03/10/20 20:00 66 03/10/20 20:00 98.5 67 20 122/57 (78) 98 03/10/20 19:48 67 18 40 03/10/20 16:00 68 03/10/20 16:00 40 03/10/20 16:00 98.1 66 21 133/73 (93) 99 03/10/20 16:00 Mechanical Ventilator 03/10/20 15:18 67 19 40 03/10/20 12:00 66 03/10/20 12:00 Mechanical Ventilator 03/10/20 12:00 98.2 72 19 122/70 (87) 99 03/10/20 12:00 40 03/10/20 10:40 66 22 40 03/10/20 08:18 73 03/10/20 08:00 97.9 76 21 126/70 (88) 99 03/10/20 08:00 Mechanical Ventilator 03/10/20 08:00 40 03/10/20 07:04 71 18 40 03/10/20 04:00 73 03/10/20 04:00 Mechanical Ventilator 03/10/20 04:00 98.1 72 26 114/66 (82) 99 03/10/20 03:00 73 20 40 HEENT: Thin Trach secretions RHYTHM: NSR, SB LUNGS: bilateral rhonchi - few, trach site clean CARDIAC: normal rate, regular rhythm, normal S1 and S2 ABDOMEN: normal bowel sounds, non tender, soft, G-Tube intact EXTREMITIES: normal range of motion, non-tender, normal inspection Laboratory Tests Test 03/10/20 03:45 03/10/20 05:48 03/11/20 00:51 White Blood Count 26.0 K/UL (4.8-10.8) *H Red Blood Count 2.68 M/UL (4.20-5.40) L Hemoglobin 8.2 G/DL (12.0-16.0) L Hematocrit 24.1 % (37.0-47.0) L Mean Corpuscular Volume 90 FL (80-99) Mean Corpuscular Hemoglobin 30.6 PG (27.0-31.0) Mean Corpuscular Hemoglobin Concent 34.0 G/DL (32.0-36.0) Red Cell Distribution Width 15.6 % (11.6-14.8) H Platelet Count 93 K/UL (150-450) L Mean Platelet Volume 11.0 FL (6.5-10.1) H Neutrophils (%) (Auto) % (45.0-75.0) Lymphocytes (%) (Auto) % (20.0-45.0) Monocytes (%) (Auto) % (1.0-10.0) Eosinophils (%) (Auto) % (0.0-3.0) Basophils (%) (Auto) % (0.0-2.0) Differential Total Cells Counted 100 Neutrophils % (Manual) 85 % (45-75) H Lymphocytes % (Manual) 12 % (20-45) L Monocytes % (Manual) 3 % (1-10) Eosinophils % (Manual) 0 % (0-3) Basophils % (Manual) 0 % (0-2) Band Neutrophils 0 % (0-8) Platelet Estimate Decreased L Platelet Morphology Normal Hypochromasia 2+ Sodium Level 135 MMOL/L (136-145) L Potassium Level 4.2 MMOL/L (3.5-5.1) Chloride Level 99 MMOL/L (98-107) Carbon Dioxide Level 19 MMOL/L (21-32) L Anion Gap 17 mmol/L (5-15) H Blood Urea Nitrogen 110 mg/dL (7-18) H Creatinine 2.8 MG/DL (0.55-1.30) H Estimat Glomerular Filtration Rate 18.1 mL/min (>60) Glucose Level 115 MG/DL (74-106) H Calcium Level 6.3 MG/DL (8.5-10.1) L Phosphorus Level 8.0 MG/DL (2.5-4.9) H Magnesium Level 2.1 MG/DL (1.8-2.4) Total Bilirubin 0.4 MG/DL (0.2-1.0) Aspartate Amino Transf (AST/SGOT) 58 U/L (15-37) H Alanine Aminotransferase (ALT/SGPT) 17 U/L (12-78) Alkaline Phosphatase 171 U/L (46-116) H Total Creatine Kinase 352 U/L (26-308) H C-Reactive Protein, Quantitative 6.7 mg/dL (0.00-0.90) H Total Protein 4.9 G/DL (6.4-8.2) L Albumin 1.9 G/DL (3.4-5.0) L Globulin 3.0 g/dL Albumin/Globulin Ratio 0.6 (1.0-2.7) L POC Whole Blood Glucose 123 MG/DL (74-106) H 149 MG/DL (74-106) H Microbiology Date/Time Source Procedure Growth Status 03/08/20 10:43 Blood Blood Culture - Preliminary NO GROWTH AFTER 48 HOURS Resulted 03/08/20 10:33 Blood Blood Culture - Preliminary NO GROWTH AFTER 48 HOURS Resulted Assessment/Plan Assessment/Plan Aortic dissections Sepsis with recovered shock Sinus node disease with bradycardia Hx pacemaker explant Ischemic cardiomyopathy - hx CABG? 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 Deni Willams MD Mar 11, 2020 01:31
--- NOTE | 2020-03-11 03:05 | NUR ---
NURSE NOTES: Patient cleaned and repositioned. Oral care done.
[2020-03-11 04:00] VITALS: BP 122/59
[2020-03-11 05:56] LABS: HEMATOCRIT 22.8 % (37.0-47.0); HEMOGLOBIN 7.5 G/DL (12.0-16.0); MEAN CORPUSCULAR VOLUME 91 FL (80-99); PLATELET COUNT 82 K/UL (150-450); RED BLOOD COUNT 2.52 M/UL (4.20-5.40); RED CELL DISTRIBUTION WIDTH 15.2 % (11.6-14.8); WHITE BLOOD COUNT 21.4 K/UL (4.8-10.8)
[2020-03-11] MEDS: Metoclopramide 10mg/2ml Inj IVP SCH ×3 (05:59→20:59)
[2020-03-11 06:12] LABS: ALBUMIN 1.8 G/DL (3.4-5.0); ALBUMIN/GLOBULIN RATIO 0.5 (1.0-2.7); BILIRUBIN,TOTAL 0.3 MG/DL (0.2-1.0); CALCIUM 6.2 MG/DL (8.5-10.1); POTASSIUM 3.8 MMOL/L (3.5-5.1)
--- NOTE | 2020-03-11 06:17 | Hematology/Onc Progress Note ---
Assessment/Plan Assessment/Plan # Leukocytosis, now with likely bacteremia, as per ID care --> Cxr: : Large left abiola consolidation/effusion --> wbc 30-->40-->27->30->29-->35->32-->28 --> ABX angelo/vanc-->tobra/edson/vanc --> smear reviewed --> ID recs are noted # Elevated tumor markers, cea and ca 19.9 --> reviewed prior 01/27/20 cat scan a/p --> no masses noted, hold off further extensive w/u # Anemia of chronic disease due to underlying chronic medical issues, multifactorial --> Anemia workup has been reviewed, cw acd --> No evidence of hemolysis is noted, peripheral smear has been reviewed. --> Hgb goal >7. Transfuse prn. --> Epogen required in prior --> Medications have been reviewed --> low threshold for gi evaluation in case has occult + --> hgb 1.9-->5-->7.1-->8.8-->8.1 --> 1 unit prbc1, 2 units 01/15, 03/02 --> gi eval as needed # Coagulopathy with inr 1.5 --> consider vit k/ffp as needed preprocedure --> labs noted # Thrombocytopenia likely reactive v medication indcued --> plt 200-->129->91 --> r/o dic # Aortic dissection as seen on Ct ==> when stable, consider transfer hloc # JAVIER initially >2 --> on ivfs --> per renal # Elevated d-dimer, likely infection related --> venous duplex prior neg --> in prior neg # Dysphagia s/p peg --> as per gi # Thoracic aortic dissection --> s/p repair early 2017 # Chronic Resp failure -> s/p trach/vent # Psychiatric history on ativan/haldol # [place] resident # Dvt ppx --> scds The timing of this note does not necessarily reflect the time of the patient was seen. Greatly appreciate consultation. Subjective Neurologic/Psychiatric: Denies: no symptoms, anxiety, depressed, emotional problems, headache, numbness, paresthesia, pre-existing deficit, seizure, tingling, tremors, weakness, other Endocrine: Denies: no symptoms, excessive sweating, flushing, intolerance to cold, intolerance to heat, increased hunger, increased thirst, increased urine, unexplained weight gain, unexplained weight loss, other Allergies: Coded Allergies: No Known Allergies (Unverified , 10/10/17) All Systems: reviewed and negative except above Subjective 03/04 for 1 unit transfusion this am as hgb remains low, wbc better 03/05 egd was done did show large nonbleeding gastric ulcer, high tumor markers 03/06 nv, with davis overnight, bp remains stable, with occult + stool, dw Rn 03/09 nv, remains stable, on vanc/tobra/edson, meds reviewed, no bleeding 03/10 nv, on vent, no bleeding, receiving abx, no night sweats 03/11 nv, dw surgeon and pcp, with aortic dissection to transfer [facility] when stable Objective Objective Current Medications Medications (Trade) Dose Ordered Sig/Penny Route PRN Reason Start Time Stop Time Status Last Admin Dose Admin Acetaminophen (Tylenol) 650 mg Q6H PRN GT Mild Pain (Pain Scale 1-3) 03/02/20 22:30 04/01/20 22:29 Acetaminophen (Tylenol) 650 mg Q6H PRN GT Temp >100.5 03/03/20 03:00 04/01/20 22:29 Aspirin (ASA) 81 mg DAILY GT 03/07/20 09:00 04/21/20 08:59 03/10/20 08:20 Ceftazidime/ Avibactam 0.94 gm/ Dextrose 110 ml @ 110 mls/hr Q12HR IV 03/06/20 13:00 03/20/20 23:59 03/10/20 20:54 Chlorhexidine Gluconate (Ling-Hex 2%) 1 applic DAILY@2000 TOPIC 03/03/20 20:00 06/01/20 19:59 03/10/20 20:41 Daptomycin 500 mg/ Sodium Chloride 50 ml @ 100 mls/hr Q48H IV 03/10/20 13:00 03/17/20 12:59 03/10/20 13:11 Dextrose 1,000 ml @ 50 mls/hr Q20H IV 03/08/20 13:00 04/07/20 12:59 03/11/20 00:30 Hydralazine HCl (Apresoline) 25 mg Q6H PRN GT For High Blood Pressure 03/02/20 22:00 05/31/20 21:59 Loperamide HCl (Imodium) 2 mg Q6H PRN GT Diarrhea 03/06/20 12:45 04/05/20 12:44 03/06/20 13:01 Metoclopramide HCl (Reglan) 5 mg Q8HR IVP 03/04/20 11:45 04/03/20 11:44 03/11/20 05:59 Midodrine (Pro-Amatine) 10 mg THREE TIMES A DAY GT 03/04/20 13:00 06/01/20 12:59 03/10/20 18:02 Pantoprazole (Protonix) 40 mg EVERY 12 HOURS IVP 03/04/20 21:00 04/02/20 20:59 03/10/20 20:42 Polyethylene Glycol (Miralax) 17 gm BEDTIME PRN GT Constipation 03/02/20 22:00 04/01/20 21:59 Sevelamer Carbonate (Renvela) 800 mg Q6HR NG 03/10/20 12:00 06/08/20 11:59 03/11/20 05:59 Sodium Hypochlorite (Dakin's Quarter Strength) 1 applic DAILY TOPIC 03/04/20 09:00 04/03/20 08:59 03/10/20 08:20 Tobramycin Protocol (Tobramycin pharmacy to dose) 1 ea DAILY PRN MISC Per rx protocol 03/06/20 09:15 04/05/20 09:14 Tobramycin Sulfate 80 mg/ Sodium Chloride 55 ml @ 110 mls/hr POSTHD IV 03/06/20 12:00 03/13/20 11:59 03/09/20 14:03 Last 24 Hour Vital Signs Date Time Temp Pulse Resp B/P (MAP) Pulse Ox O2 Delivery O2 Flow Rate FiO2 03/11/20 04:00 Mechanical Ventilator 03/11/20 04:00 97.2 65 22 122/59 (80) 100 03/11/20 04:00 64 03/11/20 04:00 40 03/11/20 03:45 65 20 40 03/11/20 00:00 97.7 65 22 127/58 (81) 100 03/11/20 00:00 40 03/11/20 00:00 Mechanical Ventilator 03/11/20 00:00 62 03/10/20 23:56 62 16 40 03/10/20 20:09 40 03/10/20 20:00 Mechanical Ventilator 03/10/20 20:00 66 03/10/20 20:00 98.5 67 20 122/57 (78) 98 03/10/20 19:48 67 18 40 03/10/20 16:00 68 03/10/20 16:00 40 03/10/20 16:00 98.1 66 21 133/73 (93) 99 03/10/20 16:00 Mechanical Ventilator 03/10/20 15:18 67 19 40 03/10/20 12:00 66 03/10/20 12:00 Mechanical Ventilator 03/10/20 12:00 98.2 72 19 122/70 (87) 99 03/10/20 12:00 40 03/10/20 10:40 66 22 40 03/10/20 08:18 73 03/10/20 08:00 97.9 76 21 126/70 (88) 99 03/10/20 08:00 Mechanical Ventilator 03/10/20 08:00 40 03/10/20 07:04 71 18 40 03/10/20 04:00 73 03/10/20 04:00 Mechanical Ventilator 03/10/20 04:00 98.1 72 26 114/66 (82) 99 03/10/20 03:00 73 20 40 03/10/20 00:32 Mechanical Ventilator 03/10/20 00:05 40 03/10/20 00:04 78 03/10/20 00:00 98.2 79 25 144/64 (90) 100 03/09/20 23:00 76 25 40 03/09/20 20:00 40 03/09/20 20:00 Mechanical Ventilator 03/09/20 20:00 Mechanical Ventilator 03/09/20 20:00 98.1 75 20 139/74 (95) 98 03/09/20 20:00 76 03/09/20 19:10 77 24 40 03/09/20 16:00 Mechanical Ventilator 03/09/20 16:00 40 03/09/20 16:00 86 03/09/20 16:00 98.2 76 22 122/67 (85) 99 03/09/20 15:15 78 25 40 03/09/20 12:00 82 03/09/20 12:00 40 03/09/20 12:00 Mechanical Ventilator 03/09/20 12:00 97.9 74 20 134/90 (105) 95 03/09/20 11:22 70 25 40 03/09/20 08:00 Mechanical Ventilator 03/09/20 08:00 97.4 90 20 138/80 (99) 95 03/09/20 08:00 40 03/09/20 08:00 84 03/09/20 07:08 80 25 40 Intake and Output 03/10/20 03/11/20 19:00 07:00 Intake Total 720 ml 485 ml Balance 720 ml 485 ml Intake Free Water 300 ml 100 ml Tube Feeding 420 ml 385 ml # Voids 1 # Bowel Movements 1 2 Labs Test 03/09/20 04:31 03/09/20 05:53 03/09/20 20:13 03/10/20 03:45 White Blood Count 31.6 K/UL (4.8-10.8) 26.0 K/UL (4.8-10.8) Red Blood Count 2.70 M/UL (4.20-5.40) 2.68 M/UL (4.20-5.40) Hemoglobin 8.1 G/DL (12.0-16.0) 8.2 G/DL (12.0-16.0) Hematocrit 24.0 % (37.0-47.0) 24.1 % (37.0-47.0) Mean Corpuscular Volume 89 FL (80-99) 90 FL (80-99) Mean Corpuscular Hemoglobin 30.2 PG (27.0-31.0) 30.6 PG (27.0-31.0) Mean Corpuscular Hemoglobin Concent 33.9 G/DL (32.0-36.0) 34.0 G/DL (32.0-36.0) Red Cell Distribution Width 15.6 % (11.6-14.8) 15.6 % (11.6-14.8) Platelet Count 91 K/UL (150-450) 93 K/UL (150-450) Mean Platelet Volume 7.2 FL (6.5-10.1) 11.0 FL (6.5-10.1) Neutrophils (%) (Auto) % (45.0-75.0) % (45.0-75.0) Lymphocytes (%) (Auto) % (20.0-45.0) % (20.0-45.0) Monocytes (%) (Auto) % (1.0-10.0) % (1.0-10.0) Eosinophils (%) (Auto) % (0.0-3.0) % (0.0-3.0) Basophils (%) (Auto) % (0.0-2.0) % (0.0-2.0) Differential Total Cells Counted 100 100 Neutrophils % (Manual) 88 % (45-75) 85 % (45-75) Lymphocytes % (Manual) 10 % (20-45) 12 % (20-45) Monocytes % (Manual) 2 % (1-10) 3 % (1-10) Eosinophils % (Manual) 0 % (0-3) 0 % (0-3) Basophils % (Manual) 0 % (0-2) 0 % (0-2) Band Neutrophils 0 % (0-8) 0 % (0-8) Platelet Estimate Decreased Decreased Platelet Morphology Normal Normal Hypochromasia 1+ 2+ Random Vancomycin Level 17.3 ug/mL POC Whole Blood Glucose 94 MG/DL (74-106) Sodium Level 135 MMOL/L (136-145) Potassium Level 4.2 MMOL/L (3.5-5.1) Chloride Level 99 MMOL/L (98-107) Carbon Dioxide Level 19 MMOL/L (21-32) Anion Gap 17 mmol/L (5-15) Blood Urea Nitrogen 110 mg/dL (7-18) Creatinine 2.8 MG/DL (0.55-1.30) Estimat Glomerular Filtration Rate 18.1 mL/min (>60) Glucose Level 115 MG/DL (74-106) Calcium Level 6.3 MG/DL (8.5-10.1) Phosphorus Level 8.0 MG/DL (2.5-4.9) Magnesium Level 2.1 MG/DL (1.8-2.4) Total Bilirubin 0.4 MG/DL (0.2-1.0) Aspartate Amino Transf (AST/SGOT) 58 U/L (15-37) Alanine Aminotransferase (ALT/SGPT) 17 U/L (12-78) Alkaline Phosphatase 171 U/L (46-116) Total Creatine Kinase 352 U/L (26-308) C-Reactive Protein, Quantitative 6.7 mg/dL (0.00-0.90) Total Protein 4.9 G/DL (6.4-8.2) Albumin 1.9 G/DL (3.4-5.0) Globulin 3.0 g/dL Albumin/Globulin Ratio 0.6 (1.0-2.7) Test 03/10/20 05:48 03/11/20 00:51 03/11/20 05:24 03/11/20 05:42 POC Whole Blood Glucose 123 MG/DL (74-106) 149 MG/DL (74-106) 145 MG/DL (74-106) Height (Feet): 5 Height (Inches): 3.00 Weight (Pounds): 128 Objective Physical Exam: Vitals: reviewed General: NAD HEENT: nc, at Neck: supple ++trach/vent Chest: clear breath sounds bilaterally Cardiovascular: RRR, no s3, s4 Abdomen: soft, nontender, nd +gtube Extremities: no cce, normal range of motion Neuro: alert Evan Muhammad MD Mar 11, 2020 06:17
[2020-03-11 06:21] LABS: AMYLASE 539 U/L (25-115)
--- NOTE | 2020-03-11 06:38 | NUR ---
NURSE NOTES: Informed Dr. Dong of critical amylase level of 539. Awaiting response.
--- NOTE | 2020-03-11 07:10 | NUR ---
NURSE NOTES:Handoff received from ERASMO Irving. Patient received resting in bed, no signs of distress noted, patient is on trach to vent with settings: Shiley 8, AC14, TV500, FI02 40% and PEEP 5 tolerating well with saturation 99%. Patient is receiving dialysis with Dialysis nurse at bedside. Patient is placed on fall and aspiration precautions with bed in the low and locked position, HOB elevated to 30' and call light at bedside. bed alarm is on. Patient is also placed on contact precautions. compliance monitor is on. Patient has right upper chest dialysis catheter, IV site is LFA running [email or web address]@50ML/HR. G tube is patent and running [email or web address]@35ML/HR. will follow plan of care.
--- NOTE | 2020-03-11 07:19 | NUR ---
NURSE HAND-OFF: Important Events on Shift:[Critical lab value Amylase 539, Dr. Dong informed. Patient getting dialysis ] Patient Status: [full code] Diet: [Nepro @35] Pending Orders: [] Pending Results/Labs:[] Pending MD notification:[] Latest Vital Signs: Temperature 97.2 , Pulse 64 , B/P 122 /59 , Respiratory Rate 22 , O2 SAT 100 , Mechanical Ventilator, O2 Flow Rate . Vital Sign Comment: [] Latest Chavarria Fall Score: 50 Fall Risk: High Risk Safety Measures: Call light Within Reach, Bed Alarm Zone 1, Side Rails Side Rails x2, Bed position Low and Locked. Fall Precautions: Yellow Socks Report given to [ERASMO Herrera].
[2020-03-11 08:00] VITALS: BP 130/65
--- NOTE | 2020-03-11 08:02 | NUR ---
NURSE NOTES:Dr Mccauley called to check up on patient, informed him that lpn medical assistant endorsed that patient had a large black bowel movement. gave TO/RB order for 1 unit PRBC to be administered.
--- NOTE | 2020-03-11 08:36 | General Progress Note ---
Subjective ROS Limited/Unobtainable: No Allergies: Coded Allergies: No Known Allergies (Unverified , 10/10/17) Objective Last 24 Hour Vital Signs Date Time Temp Pulse Resp B/P (MAP) Pulse Ox O2 Delivery O2 Flow Rate FiO2 03/11/20 07:15 63 20 40 03/11/20 04:00 Mechanical Ventilator 03/11/20 04:00 97.2 65 22 122/59 (80) 100 03/11/20 04:00 64 03/11/20 04:00 40 03/11/20 03:45 65 20 40 03/11/20 00:00 97.7 65 22 127/58 (81) 100 03/11/20 00:00 40 03/11/20 00:00 Mechanical Ventilator 03/11/20 00:00 62 03/10/20 23:56 62 16 40 03/10/20 20:09 40 03/10/20 20:00 Mechanical Ventilator 03/10/20 20:00 66 03/10/20 20:00 98.5 67 20 122/57 (78) 98 03/10/20 19:48 67 18 40 03/10/20 16:00 68 03/10/20 16:00 40 03/10/20 16:00 98.1 66 21 133/73 (93) 99 03/10/20 16:00 Mechanical Ventilator 03/10/20 15:18 67 19 40 03/10/20 12:00 66 03/10/20 12:00 Mechanical Ventilator 03/10/20 12:00 98.2 72 19 122/70 (87) 99 03/10/20 12:00 40 03/10/20 10:40 66 22 40 Intake and Output 03/10/20 03/11/20 19:00 07:00 Intake Total 720 ml 485 ml Balance 720 ml 485 ml Intake Free Water 300 ml 100 ml Tube Feeding 420 ml 385 ml # Voids 1 # Bowel Movements 1 2 Laboratory Tests 03/11/20 00:51: POC Whole Blood Glucose 149H 03/11/20 05:24: White Blood Count 21.4H, Red Blood Count 2.52L, Hemoglobin 7.5L, Hematocrit 22.8L, Mean Corpuscular Volume 91, Mean Corpuscular Hemoglobin 29.8, Mean Corpuscular Hemoglobin Concent 32.9, Red Cell Distribution Width 15.2H, Platelet Count 82L, Mean Platelet Volume 11.3H, Neutrophils (%) (Auto) , Lymphocytes (%) (Auto) , Monocytes (%) (Auto) , Eosinophils (%) (Auto) , Basophils (%) (Auto) , Neutrophils % (Manual) [Pending], Lymphocytes % (Manual) [Pending], Platelet Estimate [Pending], Platelet Morphology [Pending], Sodium Level 133L, Potassium Level 3.8, Chloride Level 97L, Carbon Dioxide Level 18L, Anion Gap 18H, Blood Urea Nitrogen 119H, Creatinine 3.0H, Estimat Glomerular Filtration Rate 16.7, Glucose Level 148H, Uric Acid 7.9H, Calcium Level 6.2L, Phosphorus Level 8.0H, Total Bilirubin 0.3, Aspartate Amino Transf (AST/SGOT) 71H, Alanine Aminotransferase (ALT/SGPT) 23, Alkaline Phosphatase 136H, C-Reactive Protein, Quantitative 7.0H, Pro-B-Type Natriuretic Peptide > 01846A, Total Protein 5.1L, Albumin 1.8L, Globulin 3.3, Albumin/Globulin Ratio 0.5L, Amylase Level 539*H, Lipase > 2000H 03/11/20 05:42: POC Whole Blood Glucose 145H Height (Feet): 5 Height (Inches): 3.00 Weight (Pounds): 128 General Appearance: no apparent distress EENT: normal ENT inspection Neck: supple Cardiovascular: normal rate Respiratory/Chest: decreased breath sounds Abdomen: normal bowel sounds, non tender, soft Extremities: non-tender Assessment/Plan Problem List: (1) Hx of CABG ICD Codes: Z95.1 - Presence of aortocoronary bypass graft SNOMED: 357442554, 818698445 (2) History of tracheostomy ICD Codes: Z98.890 - Other specified postprocedural states SNOMED: 195222534, 788696098 (3) PEG (percutaneous endoscopic gastrostomy) status ICD Codes: Z93.1 - Gastrostomy status SNOMED: 609336215, 249247843 (4) Renal failure ICD Codes: N19 - Unspecified kidney failure SNOMED: 87278065, 975162238 (5) Severe anemia ICD Codes: D64.9 - Anemia, unspecified SNOMED: 805623128 Assessment/Plan: s/p EGD gastric ulcer on ppi fu H&H transfuse one unit today add carafate TF Inder Mccauley MD Mar 11, 2020 08:36
[2020-03-11] MEDS: Dakin's 0.125% Soln (Quarter Strength) 16oz TOPIC SCH (09:00)
--- NOTE | 2020-03-11 09:21 | Infectious Diseases Prog Note ---
Assessment/Plan 49yo F with: MDR Kleb pna bacteremia AMS Anemia to 1.9 on admission 03/02 Leukocytosis to 40, improving GPC bacteremia UTI Pneumonia c/b mod-large R pleural effusion and small L pleural effusion - compressive atelectasis Hypotension 03/02 BCx 1/2 +Staph epi, 1 +Staph haemolyticus (m/l skin colonizers) UA+, UCx >100k P.stuartii (S-angelo) & CRE P.mirablis (R-polyB/colistin, S- tobramycin, per [facility] is "intrinsically resistant to Avycaz/Zerbaxa" not clear why to me and they are unable to elaborate more) COVID rapid neg, PCR neg CXR: Tracheostomy again demonstrated. Interim placement of a right jugular tunneled dialysis catheter. There is infiltrate and volume loss in the left lung, particularly in the perihilar region, suprahilar region, and base. Consolidation at the lung base is similar. The perihilar and suprahilar region consolidation is new. The right lung pleural space are clear. C.dif neg 03/03 BCx NTD 03/06 BCx 2/2 +MDR Kleb pna (arnett-R, including R-polyB, colistin), 02/14 +E.faecium VRE (R-amp, S-linezolid) 03/08 BCx NTD 03/09 CT CAP: Very limited exam, as described, due to massive anasarca. This could limit visualization of the discrete fluid collection such as an abscess. Extensive thoracoabdominal aortic dissection, as described above. Current flap begins just distal to the left subclavian artery origin; per report, there is history of surgical repair so there may have been surgical repair of the ascending thoracic aorta. Bilateral pleural effusions, slightly smaller than on earlier exams. Extensive atelectasis as a result. Extensive pulmonary par enchymal disease as detailed above. This may reflect pneumonia or pulmonary edema or both. Evidence of pulmonary arterial hypertension, with dilatation of the pulmonary artery. Considerable ascites fluid. AF Sepsis Leukocytosis Hypoxia on vent Pneumonia c/b L pleural effusion (recurrent, prior determined to be transudative) - s/p thora 01/21, 1050cc removed Volume overload, BNP >35,0000, likely 2/2 progressive CKD --> ESRD ?Pancreatitis, Lipase >2000 Acute anemia to 5s CONS bacteremia, ?contaminant Aflutter w/ RVR 01/13 BCx 2/2 +S. epi COVID PCR neg Flu neg CXR: Large left pleural effusion. Bilateral interstitial and airspace infiltrates versus edema MRSA nares neg 01/16 BCx NTD 01/17 BCx 1/2 +Staph auricularis (skin colonizer) 01/18 Resp cx +MDR CRE PsA (S-gent, I-colistin, R-polyB) 01/18 C.dif neg 01/18 CXR: Similar opacification of the left hemithorax likely representing combination of pleural effusion with atelectasis versus pneumonia/edema. Decreased but persistent hazy opacity throughout the right lung may represent e javi versus infectious/inflammatory process. 01/20 BCx NTD 01/21 L thora 1050 cc removed, cx NTD 01/25 Wound cx from Gtube site +CRE Kleb pna (arnett-R) and MDR PsA (colonizers) 01/26 CT A/P: Limited exam, due to severe diffuse anasarca. Ascites. Bilateral pleural effusions. Basilar pulmonary atelectatic changes and consolidation. Gastrostomy. Atrophic left kidney with a nephroureteral stents again demonstrated. Possible retrococcygeal decubitus changes. Correlate with clinical findings, consider MRI if there is concern for sacral osteomyelitis. Right hip intertrochanteric fracture, also previously demonstrated. Left femoral dialysis catheter. Nonspecific right lobe liver lesion is unchanged, not well- demonstrated. ctasia bordering on aneurysmal dilatation and possible chronic dissection of the distal thoracic aorta, also previously described. JAVIER on CKD On previous admission Sep-Oct 2019 required HD for short period Going to start HD this admission again R/o COVID 01/14 COVID PCR neg 12/29 neg at [facility] per report H/o UTI 11/27 u/a wbc 30-40, nit neg, leuk +3; ucx ESBL P. mirablis, ESBL M. morganii 09/15/19 u/a wbc tnct, nit neg, leuk +3; ucx >100k MDR P. stuarti (S Ceftriaxone, Meropenem) 10/07 u/a wbc tnct, nit neg, leuk ; ucx >100k VRE 10/15/19 u/a wbc tnct; ucx >100k ESBL P. stuarti (S ertapenem, aztreonam) H/o transudative pleural effusion 11/28 Sp Thora (w: 169, PMN: 2%, L: 49% , LDH: 57, prot 2.5); cx Neg H/o PNA 10/15/19 Resp cx ESBL P. mirabilis, MDR P.a. (S only to Gent) 09/22 Resp cx + MDR PsA (S-gent; I-colistin; R-levofloxacin, Zosyn, angelo) 09/16/19 Sp cx ESBL P. mirablis H/o PPM site (pocket) infection and pocket abscess 2ry to S. epi-11/2018, sp >6weeks IV vancomycin 11/27 SP ABBIE: no evidence for vegetation on any of the valves 11/26/18 SP PPM removal: OR findings:The fibrous capsule enclosing the generator was then opened and there was a [id number] amount of yellowish fluid drainage. The generator was then removed.Atrial and ventricular leads were detached. The necrotic tissue of the pocket was then removed and the pocket was flushed with an antibiotic solution. Capsule, wound tissue and lead tip cx: Neg 2d echo: no vegetation seen US chest: 4.6 x 3.4 x 0.9 cm hypoechoic/anechoic area overlying left chest pacemaker power pack. This could represent either a discrete fluid collection or a focal area of very edematous tissue. Infected fluid pocket also possible. 11/18 Bcx 3/4 S. epi; 11/20 Bcx neg; 11/24 Bcx Neg; 11/27 Bcx Neg CAD s/p CABG GERD/gastritis Afib HTN Dysphagia sp GT Aortic dissection s/p repair 2017 S/p PPM Parkinson's Disease Schizophrenia Anxiety COPD Chronic resp failure s/p trach Hx of tracheal bleeding NH resident ([facility]) VRE and MRSA colonized Plan: Cont daptomycin #2 given transient VRE bacteremia, sepsis CK on 03/1024=512, repeating 03/11 Cont Avycaz #6 given MDR Kleb pna bacteremia Cont tobramycin #6 per Pharmacy given +UCx results Appreciate Pulm input on large R pleural effusion - recommend thoracentesis to r/o empyema given ongoing leukocytosis, d/w Pulm ESTRELLITA Wilson Appreciate Surgery input on thoracic aortic aneurysm noted on CT imaging - d/w Dr. Saavedra, pt needs emergent transfer out to [facility] for CT surgery evaluation, primary MD aware Given somewhat transient MDR Kleb pna bacteremia (was not on admission BCx and cleared rapidly after positive BCx), no current indication to remove Permacath as less likely 2/2 line infection and more likely 2/2 gut translocation in setting of GIB, though if leukocytosis persists despite appropriate abx, then will have to reconsider. F/u 03/06 BCx +MDR Kleb pna - need sensi to Avycaz/Zerbaxa (d/w lab, will perform) Trend Hg, GIB Trend BP, WBC 03/10/20 SP edson #4 empiric, vanco #9 01/31 SP angelo/inh tobra #10 for pna 01/23 SP vanco IV #10 given CONS/GPC bacteremia 01/16 SP Zosyn #2 01/14 SP dex 10mg in ED 12/10 SP IV Gentamycin #10 12/07 SP Meropenem #10 12/01 SP IV Vancomycin #5 11/28 Sp Cefepime #2 and IV Gentamycin x1 Monitor CBC/CMP Monitor temp curve, hemodynamics Monitor resp status D/w RN Thank you for this consult. [facility] will continue to follow. Subjective Allergies: Coded Allergies: No Known Allergies (Unverified , 10/10/17) AF WBC improving to 21 BP stable NAD on vent Another dark BM overnight, likely ongoing bleeding Going to get 1u PRBC Objective Last 24 Hour Vital Signs Date Time Temp Pulse Resp B/P (MAP) Pulse Ox O2 Delivery O2 Flow Rate FiO2 03/11/20 07:36 72 03/11/20 07:15 63 20 40 03/11/20 04:00 Mechanical Ventilator 03/11/20 04:00 97.2 65 22 122/59 (80) 100 03/11/20 04:00 64 03/11/20 04:00 40 03/11/20 03:45 65 20 40 03/11/20 00:00 97.7 65 22 127/58 (81) 100 03/11/20 00:00 40 03/11/20 00:00 Mechanical Ventilator 03/11/20 00:00 62 03/10/20 23:56 62 16 40 03/10/20 20:09 40 03/10/20 20:00 Mechanical Ventilator 03/10/20 20:00 66 03/10/20 20:00 98.5 67 20 122/57 (78) 98 03/10/20 19:48 67 18 40 03/10/20 16:00 68 03/10/20 16:00 40 03/10/20 16:00 98.1 66 21 133/73 (93) 99 03/10/20 16:00 Mechanical Ventilator 03/10/20 15:18 67 19 40 03/10/20 12:00 66 03/10/20 12:00 Mechanical Ventilator 03/10/20 12:00 98.2 72 19 122/70 (87) 99 03/10/20 12:00 40 03/10/20 10:40 66 22 40 Height (Feet): 5 Height (Inches): 3.00 Weight (Pounds): 128 Gen: NAD HEENT: NCAT, trach Pulm: BL chest rise on vent Abd: Soft, NTND, +PEG Ext: No c/c/e Skin: No visible rashes Neuro: Awake, minimally interactive Lines: R chest Permacath dressing c/d/i Microbiology Date/Time Source Procedure Growth Status 03/08/20 10:43 Blood Blood Culture - Preliminary NO GROWTH AFTER 48 HOURS Resulted 03/08/20 10:33 Blood Blood Culture - Preliminary NO GROWTH AFTER 48 HOURS Resulted Laboratory Tests Test 03/11/20 00:51 03/11/20 05:24 03/11/20 05:42 POC Whole Blood Glucose 149 MG/DL (74-106) H 145 MG/DL (74-106) H White Blood Count 21.4 K/UL (4.8-10.8) H Red Blood Count 2.52 M/UL (4.20-5.40) L Hemoglobin 7.5 G/DL (12.0-16.0) L Hematocrit 22.8 % (37.0-47.0) L Mean Corpuscular Volume 91 FL (80-99) Mean Corpuscular Hemoglobin 29.8 PG (27.0-31.0) Mean Corpuscular Hemoglobin Concent 32.9 G/DL (32.0-36.0) Red Cell Distribution Width 15.2 % (11.6-14.8) H Platelet Count 82 K/UL (150-450) L Mean Platelet Volume 11.3 FL (6.5-10.1) H Neutrophils (%) (Auto) % (45.0-75.0) Lymphocytes (%) (Auto) % (20.0-45.0) Monocytes (%) (Auto) % (1.0-10.0) Eosinophils (%) (Auto) % (0.0-3.0) Basophils (%) (Auto) % (0.0-2.0) Neutrophils % (Manual) Pending Lymphocytes % (Manual) Pending Platelet Estimate Pending Platelet Morphology Pending Sodium Level 133 MMOL/L (136-145) L Potassium Level 3.8 MMOL/L (3.5-5.1) Chloride Level 97 MMOL/L (98-107) L Carbon Dioxide Level 18 MMOL/L (21-32) L Anion Gap 18 mmol/L (5-15) H Blood Urea Nitrogen 119 mg/dL (7-18) H Creatinine 3.0 MG/DL (0.55-1.30) H Estimat Glomerular Filtration Rate 16.7 mL/min (>60) Glucose Level 148 MG/DL (74-106) H Uric Acid 7.9 MG/DL (2.6-7.2) H Calcium Level 6.2 MG/DL (8.5-10.1) L Phosphorus Level 8.0 MG/DL (2.5-4.9) H Total Bilirubin 0.3 MG/DL (0.2-1.0) Aspartate Amino Transf (AST/SGOT) 71 U/L (15-37) H Alanine Aminotransferase (ALT/SGPT) 23 U/L (12-78) Alkaline Phosphatase 136 U/L (46-116) H C-Reactive Protein, Quantitative 7.0 mg/dL (0.00-0.90) H Pro-B-Type Natriuretic Peptide > 58435 pg/mL (0-125) H Total Protein 5.1 G/DL (6.4-8.2) L Albumin 1.8 G/DL (3.4-5.0) L Globulin 3.3 g/dL Albumin/Globulin Ratio 0.5 (1.0-2.7) L Amylase Level 539 U/L (25-115) *H Lipase > 2000 U/L (73-393) H Current Medications Medications (Trade) Dose Ordered Sig/Penny Route PRN Reason Start Time Stop Time Status Last Admin Dose Admin Acetaminophen (Tylenol) 650 mg Q6H PRN GT Mild Pain (Pain Scale 1-3) 03/02/20 22:30 04/01/20 22:29 Acetaminophen (Tylenol) 650 mg Q6H PRN GT Temp >100.5 03/03/20 03:00 04/01/20 22:29 Aspirin (ASA) 81 mg DAILY GT 03/07/20 09:00 04/21/20 08:59 03/10/20 08:20 Ceftazidime/ Avibactam 0.94 gm/ Dextrose 110 ml @ 110 mls/hr Q12HR IV 03/06/20 13:00 03/20/20 23:59 03/10/20 20:54 Chlorhexidine Gluconate (Ling-Hex 2%) 1 applic DAILY@2000 TOPIC 03/03/20 20:00 06/01/20 19:59 03/10/20 20:41 Daptomycin 500 mg/ Sodium Chloride 50 ml @ 100 mls/hr Q48H IV 03/10/20 13:00 03/17/20 12:59 03/10/20 13:11 Dextrose 1,000 ml @ 50 mls/hr Q20H IV 03/08/20 13:00 04/07/20 12:59 03/11/20 00:30 Hydralazine HCl (Apresoline) 25 mg Q6H PRN GT For High Blood Pressure 03/02/20 22:00 05/31/20 21:59 Loperamide HCl (Imodium) 2 mg Q6H PRN GT Diarrhea 03/06/20 12:45 04/05/20 12:44 03/06/20 13:01 Metoclopramide HCl (Reglan) 5 mg Q8HR IVP 03/04/20 11:45 04/03/20 11:44 03/11/20 05:59 Midodrine (Pro-Amatine) 10 mg THREE TIMES A DAY GT 03/04/20 13:00 06/01/20 12:59 03/10/20 18:02 Pantoprazole (Protonix) 40 mg EVERY 12 HOURS IVP 03/04/20 21:00 04/02/20 20:59 03/10/20 20:42 Polyethylene Glycol (Miralax) 17 gm BEDTIME PRN GT Constipation 03/02/20 22:00 04/01/20 21:59 Sevelamer Carbonate (Renvela) 800 mg Q6HR NG 03/10/20 12:00 06/08/20 11:59 03/11/20 05:59 Sodium Hypochlorite (Dakin's Quarter Strength) 1 applic DAILY TOPIC 03/04/20 09:00 04/03/20 08:59 03/10/20 08:20 Sucralfate (Carafate) 1 gm FOUR TIMES A DAY GT 03/11/20 09:00 06/09/20 08:59 Tobramycin Protocol (Tobramycin pharmacy to dose) 1 ea DAILY PRN MISC Per rx protocol 03/06/20 09:15 04/05/20 09:14 Tobramycin Sulfate 80 mg/ Sodium Chloride 55 ml @ 110 mls/hr POSTHD IV 03/06/20 12:00 03/13/20 11:59 03/09/20 14:03 Ro Pack M.D. Mar 11, 2020 09:21
[2020-03-11] MEDS: Sucralfate 1gm tab GT SCH ×4 (09:48→20:17)
[2020-03-11] MEDS: Pantoprazole Inj IVP SCH ×2 (09:49→20:18)
[2020-03-11] MEDS: Midodrine 10mg tab GT SCH ×3 (09:49→18:00)
[2020-03-11] MEDS: D5W IV SCH ×2 (09:49→20:58)
[2020-03-11] MEDS: CEFTAZIDIME IV SCH ×2 (09:49→20:58)
[2020-03-11] MEDS: AVIBACTAM IV SCH ×2 (09:49→20:58)
[2020-03-11] MEDS: Aspirin Baby 81mg GT SCH (09:49)
--- NOTE | 2020-03-11 09:57 | NUR ---
CASE MANAGEMENT:REVIEW 03/11/20 SI: SEPSIS. AC/CHR RENAL FAILURE. TRACH.VENT.GT EXTENSIVE THORACOABDOMINAL AORTIC DISSECTION 98.2 72 19 122/70 99% ON VENT SUPPORT W/40% FIO2 WBC+26.0 PLT-93 BUN+110 CR+2.8 IS: IV DAPTOMYCIN Q48HRS IV CEFTAZIDIME Q12 IV TOBRAMYCIN POST HD IVF@50/HR ASA GT QD IV PROTONIX Q12 IV REGLAN Q8HR : STEP DOWN UNIT DCP: FROM [facility] PLAN: NEEDS TO BE TRANSFERRED TO HIGHER LEVEL OF CARE URGENTLY DUE TO EXTENSIVE AORTIC THORACIC AND ABDOMINAL DISSECTION
[2020-03-11 10:01] LABS: CREATINE KINASE 286 U/L (26-308)
--- NOTE | 2020-03-11 10:08 | NUR ---
CASE MANAGEMENT:REVIEW 03/11/20 SI: SEPSIS. AC/CHR RENAL FAILURE. TRACH.VENT.GT EXTENSIVE THORACOABDOMINAL AORTIC DISSECTION 97.2 70 21 130/65 100% ON VENT SUPPORT W/40% FIO2 WBC+21.4 H/H-7.5/22.8 PLT-82 BUN+119 CR+3.0 AMYLASE+539 LIPASE>2000 IS: IV DAPTOMYCIN Q48HRS IV CEFTAZIDIME Q12 IV TOBRAMYCIN POST HD IVF@50/HR ASA GT QD IV PROTONIX Q12 IV REGLAN Q8HR : STEP DOWN UNIT DCP: FROM [facility] PLAN: NEEDS TO BE TRANSFERRED TO HIGHER LEVEL OF CARE URGENTLY DUE TO EXTENSIVE AORTIC THORACIC AND ABDOMINAL DISSECTION Addendum: 03/11/20 at 1044 by GERARD SOLORION CALLED [facility] MAIN LINE [phone]. WAS PROVIDED CALL REFERENCE NUMBER [id number]. WAS ALSO GIVEN SECOND BAKERTIPPING MACHINE OPERATOR AUTOMATIC NUMBER T: [phone] CALLED CASE MGMT DEPARTMENT AND RECEIVED A RECORDING WITH INSTRUCTIONS CALLED [phone] AND RECEIVED VOICE MESSAGE GIVING INSTRUCTIONS TO FAX REQUEST TO F: [phone].....FAXED REQUEST FOR HIGHER LEVEL OF CARE IT HAS BEEN IMPOSSIBLE TO SPEAK WITH A SECOND BAKER AT [facility], WHICH IS UNACCEPTABLE IN THIS CASE WHERE PATIENT NEEDS TO BE TRANSFERRED URGENTLY TO A HIGHER LEVEL OF CARE
--- NOTE | 2020-03-11 10:24 | NUR ---
[place]SFER UPDATE [place] [facility] [place] TO BE [place] TO A HIGHER LEVEL OF CARE CALLED AND LEFT [facility] T: [phone] REQUESTED RETURN CALL FOR URGENT TRANSFER Addendum: 03/11/20 at 1044 by TRINY BOYLE LVN LVN CALLED [facility] MAIN LINE [phone]. WAS PROVIDED CALL REFERENCE NUMBER [id number]. WAS ALSO GIVEN DIRECTOR OF SURGERYAUTOMOTIVE SERVICE MANAGEMENT TEACHER NUMBER T: [phone] CALLED CASE MGMT DEPARTMENT AND RECEIVED A RECORDING WITH INSTRUCTIONS CALLED [phone] AND RECEIVED VOICE MESSAGE GIVING INSTRUCTIONS TO FAX REQUEST TO F: [phone].....FAXED REQUEST FOR HIGHER LEVEL OF CARE IT HAS BEEN IMPOSSIBLE TO SPEAK WITH A DIRECTOR OF SURGERY AT [facility], WHICH IS UNACCEPTABLE IN THIS CASE WHERE PATIENT NEEDS TO BE TRANSFERRED URGENTLY TO A HIGHER LEVEL OF CARE Addendum: 03/12/20 at 1300 by TRINY BOYLE LVN LVN DIRECTOR OF CASE MANAGEMENT IS WORKING ON THIS TRANSFER
--- NOTE | 2020-03-11 10:27 | Nephrology Progress Note ---
Assessment/Plan Problem List: (1) Renal failure (ARF), acute on chronic (2) Anemia (3) Hyponatremia (4) Respiratory failure Assessment (1) JAVIER (acute kidney injury) (2) Renal failure (ARF), acute on chronic (3) Feeding by G-tube (4) Tracheostomy in place (5) Electrolyte imbalance, hyponatremia (6) Anemia, severe (7) Respiratory failure, acute and chronic (8) history of elevated lipase, pancreatitis (9) Elevated troponin I (10) Sepsis Plan March 11: Labs reviewed. Dialyzed this morning. Phosphorus binders dose adjusted. Continue per consultants. Continue to monitor renal parameters. CT: Extensive thoracoabdominal aortic dissection March 10: Labs reviewed. Will order dialysis tomorrow. Phosphorus binders added. Continue per consultants. March 09: No chemistry panel done today. Patient dialyzed yesterday. On dextrose 10% for hypoglycemia. We will check labs tomorrow. Dialysis as needed. March 08: Labs reviewed. Will order dialysis today. Blood sugar low. D10 50 cc an hour started. Continue as is. March 07: Labs reviewed. Dialyzed March 05 and March 06. Continue to monitor renal parameters and hemoglobin. Abnormal electrolytes addressed. IV fluids stopped. Per orders. March 06: Labs reviewed. Dialyzed yesterday. Will reorder dialysis for today. Continue to monitor renal parameters. Hemoglobin 8.4. Patient full code. March 05: Labs reviewed. Patient did not receive dialysis until this morning. Proceed with dialysis. Continue to monitor renal parameters and hemoglobin and hematocrit. March 04: Labs reviewed. Hemoglobin lower. Patient actively bleeding. Was not dialyzed yesterday. Due for GI endoscopy. Continue fluid challenge. Transfusion as needed. Dialysis today. March 03: Labs reviewed. Dialysis ordered. Blood pressure medication all discontinued due to hypotensive state. Albumin bolus given. Continue to monitor renal parameters. Medication list reviewed. Midodrin for low blood pressure ordered Subjective ROS Limited/Unobtainable: Yes Objective Objective Last 24 Hour Vital Signs Date Time Temp Pulse Resp B/P (MAP) Pulse Ox O2 Delivery O2 Flow Rate FiO2 03/11/20 08:00 40 03/11/20 08:00 Mechanical Ventilator 03/11/20 08:00 97.2 70 21 130/65 (86) 100 03/11/20 07:36 72 03/11/20 07:15 63 20 40 03/11/20 04:00 Mechanical Ventilator 03/11/20 04:00 97.2 65 22 122/59 (80) 100 03/11/20 04:00 64 03/11/20 04:00 40 03/11/20 03:45 65 20 40 03/11/20 00:00 97.7 65 22 127/58 (81) 100 03/11/20 00:00 40 03/11/20 00:00 Mechanical Ventilator 03/11/20 00:00 62 03/10/20 23:56 62 16 40 03/10/20 20:09 40 03/10/20 20:00 Mechanical Ventilator 03/10/20 20:00 66 03/10/20 20:00 98.5 67 20 122/57 (78) 98 03/10/20 19:48 67 18 40 03/10/20 16:00 68 03/10/20 16:00 40 03/10/20 16:00 98.1 66 21 133/73 (93) 99 03/10/20 16:00 Mechanical Ventilator 03/10/20 15:18 67 19 40 03/10/20 12:00 66 03/10/20 12:00 Mechanical Ventilator 03/10/20 12:00 98.2 72 19 122/70 (87) 99 03/10/20 12:00 40 03/10/20 10:40 66 22 40 Intake and Output 03/10/20 03/11/20 19:00 07:00 Intake Total 720 ml 485 ml Balance 720 ml 485 ml Intake Free Water 300 ml 100 ml Tube Feeding 420 ml 385 ml # Voids 1 # Bowel Movements 1 2 Current Medications Medications (Trade) Dose Ordered Sig/Penny Route PRN Reason Start Time Stop Time Status Last Admin Dose Admin Acetaminophen (Tylenol) 650 mg Q6H PRN GT Mild Pain (Pain Scale 1-3) 03/02/20 22:30 04/01/20 22:29 Acetaminophen (Tylenol) 650 mg Q6H PRN GT Temp >100.5 03/03/20 03:00 04/01/20 22:29 Aspirin (ASA) 81 mg DAILY GT 03/07/20 09:00 04/21/20 08:59 03/11/20 09:49 Ceftazidime/ Avibactam 0.94 gm/ Dextrose 110 ml @ 110 mls/hr Q12HR IV 03/06/20 13:00 03/20/20 23:59 03/11/20 09:49 Chlorhexidine Gluconate (Ling-Hex 2%) 1 applic DAILY@2000 TOPIC 03/03/20 20:00 06/01/20 19:59 03/10/20 20:41 Daptomycin 500 mg/ Sodium Chloride 50 ml @ 100 mls/hr Q48H IV 03/10/20 13:00 03/17/20 12:59 03/10/20 13:11 Hydralazine HCl (Apresoline) 25 mg Q6H PRN GT For High Blood Pressure 03/02/20 22:00 05/31/20 21:59 Loperamide HCl (Imodium) 2 mg Q6H PRN GT Diarrhea 03/06/20 12:45 04/05/20 12:44 03/06/20 13:01 Metoclopramide HCl (Reglan) 5 mg Q8HR IVP 03/04/20 11:45 04/03/20 11:44 03/11/20 05:59 Midodrine (Pro-Amatine) 10 mg THREE TIMES A DAY GT 03/04/20 13:00 06/01/20 12:59 03/11/20 09:49 Pantoprazole (Protonix) 40 mg EVERY 12 HOURS IVP 03/04/20 21:00 04/02/20 20:59 03/11/20 09:49 Polyethylene Glycol (Miralax) 17 gm BEDTIME PRN GT Constipation 03/02/20 22:00 04/01/20 21:59 Sevelamer Carbonate (Renvela) 800 mg Q6HR NG 03/10/20 12:00 06/08/20 11:59 03/11/20 05:59 Sodium Hypochlorite (Dakin's Quarter Strength) 1 applic DAILY TOPIC 03/04/20 09:00 04/03/20 08:59 03/11/20 09:00 Sucralfate (Carafate) 1 gm FOUR TIMES A DAY GT 03/11/20 09:00 06/09/20 08:59 03/11/20 09:48 Tobramycin Protocol (Tobramycin pharmacy to dose) 1 ea DAILY PRN MISC Per rx protocol 03/06/20 09:15 04/05/20 09:14 Tobramycin Sulfate 80 mg/ Sodium Chloride 55 ml @ 110 mls/hr POSTHD IV 03/06/20 12:00 03/13/20 11:59 03/09/20 14:03 Laboratory Tests 03/11/20 00:51: POC Whole Blood Glucose 149H 03/11/20 05:24: White Blood Count 21.4H, Red Blood Count 2.52L, Hemoglobin 7.5L, Hematocrit 22.8L, Mean Corpuscular Volume 91, Mean Corpuscular Hemoglobin 29.8, Mean Corpuscular Hemoglobin Concent 32.9, Red Cell Distribution Width 15.2H, Platelet Count 82L, Mean Platelet Volume 11.3H, Neutrophils (%) (Auto) , Lymphocytes (%) (Auto) , Monocytes (%) (Auto) , Eosinophils (%) (Auto) , Basophils (%) (Auto) , Differential Total Cells Counted 100, Neutrophils % (Manual) 91H, Lymphocytes % (Manual) 8L, Monocytes % (Manual) 1, Eosinophils % (Manual) 0, Basophils % (Manual) 0, Band Neutrophils 0, Platelet Estimate DecreasedL, Platelet Morphology Normal, Hypochromasia 1+, Anisocytosis 1+, Sodium Level 133L, Potassium Level 3.8, Chloride Level 97L, Carbon Dioxide Level 18L, Anion Gap 18H , Blood Urea Nitrogen 119H, Creatinine 3.0H, Estimat Glomerular Filtration Rate 16.7, Glucose Level 148H, Uric Acid 7.9H, Calcium Level 6.2L, Phosphorus Level 8.0H, Total Bilirubin 0.3, Aspartate Amino Transf (AST/SGOT) 71H, Alanine Aminotransferase (ALT/SGPT) 23, Alkaline Phosphatase 136H, Total Creatine Kinase 286, C-Reactive Protein, Quantitative 7.0H, Pro-B-Type Natriuretic Peptide > 65644Q, Total Protein 5.1L, Albumin 1.8L, Globulin 3.3, Albumin/Globulin Ratio 0.5L, Amylase Level 539*H, Lipase > 2000H 03/11/20 05:42: POC Whole Blood Glucose 145H Height (Feet): 5 Height (Inches): 3.00 Weight (Pounds): 128 General Appearance: no apparent distress EENT: other - Trach and vent Cardiovascular: normal rate Respiratory/Chest: decreased breath sounds Abdomen: distended Johnny Houston MD Mar 11, 2020 10:27
--- NOTE | 2020-03-11 11:44 | Pulmonology Progress Note ---
Subjective ROS Limited/Unobtainable: Yes Interval Events: none major reported per nursing HEENT: Repors: no symptoms Respiratory: Reports: no symptoms Cardiovascular: Reports: no symptoms Gastrointestinal/Abdominal: Reports: diarrhea Allergies: Coded Allergies: No Known Allergies (Unverified , 10/10/17) All Systems: reviewed and negative except above Objective Last 24 Hour Vital Signs Date Time Temp Pulse Resp B/P (MAP) Pulse Ox O2 Delivery O2 Flow Rate FiO2 03/11/20 11:16 Mechanical Ventilator 03/11/20 11:16 40 03/11/20 08:00 40 03/11/20 08:00 Mechanical Ventilator 03/11/20 08:00 97.2 70 21 130/65 (86) 100 03/11/20 07:36 72 03/11/20 07:15 63 20 40 03/11/20 04:00 Mechanical Ventilator 03/11/20 04:00 97.2 65 22 122/59 (80) 100 03/11/20 04:00 64 03/11/20 04:00 40 03/11/20 03:45 65 20 40 03/11/20 00:00 97.7 65 22 127/58 (81) 100 03/11/20 00:00 40 03/11/20 00:00 Mechanical Ventilator 03/11/20 00:00 62 03/10/20 23:56 62 16 40 03/10/20 20:09 40 03/10/20 20:00 Mechanical Ventilator 03/10/20 20:00 66 03/10/20 20:00 98.5 67 20 122/57 (78) 98 03/10/20 19:48 67 18 40 03/10/20 16:00 68 03/10/20 16:00 40 03/10/20 16:00 98.1 66 21 133/73 (93) 99 03/10/20 16:00 Mechanical Ventilator 03/10/20 15:18 67 19 40 03/10/20 12:00 66 03/10/20 12:00 Mechanical Ventilator 03/10/20 12:00 98.2 72 19 122/70 (87) 99 03/10/20 12:00 40 Intake and Output 03/10/20 03/11/20 19:00 07:00 Intake Total 720 ml 485 ml Balance 720 ml 485 ml Intake Free Water 300 ml 100 ml Tube Feeding 420 ml 385 ml # Voids 1 # Bowel Movements 1 2 General Appearance: no acute distress HEENT: atraumatic Respiratory: lungs clear Cardiovascular: regular rhythm, bradycardia Extremities: other - edema bilateral Laboratory Tests 03/11/20 00:51: POC Whole Blood Glucose 149H 03/11/20 05:24: White Blood Count 21.4H, Red Blood Count 2.52L, Hemoglobin 7.5L, Hematocrit 22.8L, Mean Corpuscular Volume 91, Mean Corpuscular Hemoglobin 29.8, Mean Corpuscular Hemoglobin Concent 32.9, Red Cell Distribution Width 15.2H, Platelet Count 82L, Mean Platelet Volume 11.3H, Neutrophils (%) (Auto) , Lymphocytes (%) (Auto) , Monocytes (%) (Auto) , Eosinophils (%) (Auto) , Basophils (%) (Auto) , Differential Total Cells Counted 100, Neutrophils % (Manual) 91H, Lymphocytes % (Manual) 8L, Monocytes % (Manual) 1, Eosinophils % (Manual) 0, Basophils % (Manual) 0, Band Neutrophils 0, Platelet Estimate DecreasedL, Platelet Morphology Normal, Hypochromasia 1+, Anisocytosis 1+, Sodium Level 133L, Potassium Level 3.8, Chloride Level 97L, Carbon Dioxide Level 18L, Anion Gap 18H , Blood Urea Nitrogen 119H, Creatinine 3.0H, Estimat Glomerular Filtration Rate 16.7, Glucose Level 148H, Uric Acid 7.9H, Calcium Level 6.2L, Phosphorus Level 8.0H, Total Bilirubin 0.3, Aspartate Amino Transf (AST/SGOT) 71H, Alanine Aminotransferase (ALT/SGPT) 23, Alkaline Phosphatase 136H, Total Creatine Kinase 286, C-Reactive Protein, Quantitative 7.0H, Pro-B-Type Natriuretic Peptide > 11044J, Total Protein 5.1L, Albumin 1.8L, Globulin 3.3, Albumin/Globulin Ratio 0.5L, Amylase Level 539*H, Lipase > 2000H 03/11/20 05:42: POC Whole Blood Glucose 145H Current Medications Medications (Trade) Dose Ordered Sig/Penny Route PRN Reason Start Time Stop Time Status Last Admin Dose Admin Acetaminophen (Tylenol) 650 mg Q6H PRN GT Mild Pain (Pain Scale 1-3) 03/02/20 22:30 04/01/20 22:29 Acetaminophen (Tylenol) 650 mg Q6H PRN GT Temp >100.5 03/03/20 03:00 04/01/20 22:29 Aspirin (ASA) 81 mg DAILY GT 03/07/20 09:00 04/21/20 08:59 03/11/20 09:49 Ceftazidime/ Avibactam 0.94 gm/ Dextrose 110 ml @ 110 mls/hr Q12HR IV 03/06/20 13:00 03/20/20 23:59 03/11/20 09:49 Chlorhexidine Gluconate (Ling-Hex 2%) 1 applic DAILY@1999 TOPIC 03/03/20 20:00 06/01/20 19:59 03/10/20 20:41 Daptomycin 500 mg/ Sodium Chloride 50 ml @ 100 mls/hr Q48H IV 03/10/20 13:00 03/17/20 12:59 03/10/20 13:11 Hydralazine HCl (Apresoline) 25 mg Q6H PRN GT For High Blood Pressure 03/02/20 22:00 05/31/20 21:59 Loperamide HCl (Imodium) 2 mg Q6H PRN GT Diarrhea 03/06/20 12:45 04/05/20 12:44 03/06/20 13:01 Metoclopramide HCl (Reglan) 5 mg Q8HR IVP 03/04/20 11:45 04/03/20 11:44 03/11/20 05:59 Midodrine (Pro-Amatine) 10 mg THREE TIMES A DAY GT 03/04/20 13:00 06/01/20 12:59 03/11/20 09:49 Pantoprazole (Protonix) 40 mg EVERY 12 HOURS IVP 03/04/20 21:00 04/02/20 20:59 03/11/20 09:49 Polyethylene Glycol (Miralax) 17 gm BEDTIME PRN GT Constipation 03/02/20 22:00 04/01/20 21:59 Sevelamer Carbonate (Renvela) 1,600 mg Q6HR NG 03/11/20 12:00 06/08/20 11:59 Sodium Hypochlorite (Dakin's Quarter Strength) 1 applic DAILY TOPIC 03/04/20 09:00 04/03/20 08:59 03/11/20 09:00 Sucralfate (Carafate) 1 gm FOUR TIMES A DAY GT 03/11/20 09:00 06/09/20 08:59 03/11/20 09:48 Tobramycin Protocol (Tobramycin pharmacy to dose) 1 ea DAILY PRN MISC Per rx protocol 03/06/20 09:15 04/05/20 09:14 Tobramycin Sulfate 80 mg/ Sodium Chloride 55 ml @ 110 mls/hr POSTHD IV 03/06/20 12:00 03/13/20 11:59 03/09/20 14:03 Assessment/Plan Assessment/Plan 1. Chronic respiratory failure. - CT chest/abd/pelv: improving pleural effusion - will order thoracentesis 2. Mechanical ventilation. - current setting at AC 14, Vt 500, FiO2 40%, PEEP 5 saturating at 97-98% - continue current setting - suction secretions as needed 3. Chronic tracheostomy. 4. Chronic G-tube. 5. Anemia. - s/p transfusion - stool OB positive - off anticoags 6. Renal failure. 7. Leukocytosis and sepsis. 8. Sepsis UTI 9. Gram positive cocci bacteremia 10. COVID-19 negative 11. Diarrhea - C. diff neg 12. Hypoglycemia - resolved 13. Bradycardia - no urgent indication for pacemaker per cardio 14. Gastric ulcer - on PPI - GI following 15. Pleural effusion - will order thoracentesis per ID recs - ordered albumin, cell count w/ diff, Cx w/ gram stain, cytology, glucose, LDH, and pH - Dw mother Fely, and she gave consent We will follow carefully. ID and Hematology following. The care for this patient was discussed with my supervising physician Time spent for this case was approximately 31 minutes Cruz Wilson Mar 11, 2020 11:44
--- NOTE | 2020-03-11 11:59 | NUR ---
NURSE NOTES:Blood collected from blood bank and verified against patient using patient ID bracelet as patient non-verbal. Patient identified using 2 identifiers of name, and date, verified against blood product and paperwork with second RN Aly. Blood transfusion started.
[2020-03-11 12:00] VITALS: BP 139/67
--- NOTE | 2020-03-11 12:14 | NUR ---
NURSE NOTES:15 minutes after starting tranfusion, patient vitals are stable and in range, no spike in temperature noted. Patient tolerating well, increased rate from 75ML/HR to 120ML/HR.
[2020-03-11 13:10] LABS: INR 1.4 (0.9-1.1)
--- NOTE | 2020-03-11 14:29 | Pre-Procedure Note/Attestation ---
Pre-Procedure Note/Attestation Complete Prior to Procedure Planned Procedure: not applicable Procedure Narrative: thoracentesis Indications for Procedure Pre-Operative Diagnosis: pleural effusion Attestation I attest that I discussed the nature of the procedure; its benefits; risks and complications; and alternatives (and the risks and benefits of such alternatives), prior to the procedure, with the patient (or the patient's legal billing representative). I attest that, if there was a reasonable possibility of needing a blood transfusion, the patient (or the patient's legal billing representative) was given the [facility] standardized written summary, pursuant to the Deo [place] Blood Safety Act ([place] Health and Safety Code # 1645, as amended). I attest that I re-evaluated the patient just prior to the surgery and that there has been no change in the patient's H&P, except as documented below: Discussed by phone with pt's. mother Felyoren RiosArmen Houston MD Mar 11, 2020 14:29
--- NOTE | 2020-03-11 15:17 | NUR ---
NURSE NOTES:Thoracentesis unable to be carried out at bedside. Khloe stated that there is not enough fluid to perform the procedure.
--- NOTE | 2020-03-11 15:21 | NUR ---
NURSE NOTES: Noticed patient is grimacing when being repositioned, asked patient to blink if she is having pain, patient blinked 3 times, pain medication administered.
[2020-03-11] MEDS: Acetaminophen 650mg/20.3ml GT PRN (15:24)
--- NOTE | 2020-03-11 15:28 | Diagnostic Imaging Report ---
Indication: Pleural effusions demonstrated on prior imaging Technique: Grayscale images of the chest in anticipation of thoracentesis Comparison: Left chest sonogram dated 03/05/2020; also CT scan 03/09/2020 Findings: Only small right pleural effusion could be demonstrated, pleural effusion smaller than expected based on prior CT findings. Amount insufficient for safe thoracentesis Real-time scanning of the left chest by me (not archived) shows only trace left pleural fluid, likewise insufficient for safe thoracentesis Impression: Small right, trace left pleural effusions, insufficient for safe thoracentesis
--- NOTE | 2020-03-11 15:45 | NUR ---
NURSE NOTES:Bed bath given, linens changed and sacral wound cleansed and redressed after BM.
[2020-03-11 16:00] VITALS: BP 150/73
[2020-03-11] MEDS: NS IV SCH (16:26)
[2020-03-11] MEDS: TOBRAMYCIN IV SCH (16:26)
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
--- NOTE | 2020-03-11 17:59 | NUR ---
INSURANCE CLINCALS AND REVIEW FAXED TO [facility] T: [phone] F: [phone]
--- NOTE | 2020-03-11 19:10 | NUR ---
NURSE NOTES: Received report from Javier. Pt sleeping in bed, on trach to vent S7, AC14, TV 500, Fio2 40, Peep 5 and tolerating well with 100% O2sat. Suction provided. Tube feeding running and no residual noted. HOB elevated. IV sites intact and running IVF. Permacath for HD on R chest noted, dressing d/c/i. Bed locked, lowest position, alarm on, side rails up, call light within reach. Will continue to monitor.
--- NOTE | 2020-03-11 19:17 | Cardiology Progress Note ---
Subjective DATE OF SERVICE: Mar 11, 2020 Heart rates mostly 60-70's now. BP parameters stable. CT scan now reveals two areas of aortic dissection. Objective Last 24 Hour Vital Signs Date Time Temp Pulse Resp B/P (MAP) Pulse Ox O2 Delivery O2 Flow Rate FiO2 03/11/20 16:00 71 03/11/20 16:00 97.9 74 21 150/73 (98) 99 03/11/20 16:00 40 03/11/20 16:00 Mechanical Ventilator 03/11/20 15:04 62 18 40 03/11/20 12:00 97.7 71 21 139/67 (91) 100 03/11/20 11:50 70 03/11/20 11:16 Mechanical Ventilator 03/11/20 11:16 40 03/11/20 11:02 64 20 40 03/11/20 08:00 40 03/11/20 08:00 Mechanical Ventilator 03/11/20 08:00 97.2 70 21 130/65 (86) 100 03/11/20 07:36 72 03/11/20 07:15 63 20 40 03/11/20 04:00 Mechanical Ventilator 03/11/20 04:00 97.2 65 22 122/59 (80) 100 03/11/20 04:00 64 03/11/20 04:00 40 03/11/20 03:45 65 20 40 03/11/20 00:00 97.7 65 22 127/58 (81) 100 03/11/20 00:00 40 03/11/20 00:00 Mechanical Ventilator 03/11/20 00:00 62 03/10/20 23:56 62 16 40 03/10/20 20:09 40 03/10/20 20:00 Mechanical Ventilator 03/10/20 20:00 66 03/10/20 20:00 98.5 67 20 122/57 (78) 98 03/10/20 19:48 67 18 40 HEENT: Thin Trach secretions RHYTHM: NSR, SB LUNGS: bilateral rhonchi - few, trach site clean CARDIAC: normal rate, regular rhythm, normal S1 and S2 ABDOMEN: normal bowel sounds, non tender, soft, G-Tube intact EXTREMITIES: normal range of motion, non-tender, normal inspection Laboratory Tests Test 03/11/20 00:51 03/11/20 05:24 03/11/20 05:42 03/11/20 12:09 POC Whole Blood Glucose 149 MG/DL (74-106) H 145 MG/DL (74-106) H 132 MG/DL (74-106) H White Blood Count 21.4 K/UL (4.8-10.8) H Red Blood Count 2.52 M/UL (4.20-5.40) L Hemoglobin 7.5 G/DL (12.0-16.0) L Hematocrit 22.8 % (37.0-47.0) L Mean Corpuscular Volume 91 FL (80-99) Mean Corpuscular Hemoglobin 29.8 PG (27.0-31.0) Mean Corpuscular Hemoglobin Concent 32.9 G/DL (32.0-36.0) Red Cell Distribution Width 15.2 % (11.6-14.8) H Platelet Count 82 K/UL (150-450) L Mean Platelet Volume 11.3 FL (6.5-10.1) H Neutrophils (%) (Auto) % (45.0-75.0) Lymphocytes (%) (Auto) % (20.0-45.0) Monocytes (%) (Auto) % (1.0-10.0) Eosinophils (%) (Auto) % (0.0-3.0) Basophils (%) (Auto) % (0.0-2.0) Differential Total Cells Counted 100 Neutrophils % (Manual) 91 % (45-75) H Lymphocytes % (Manual) 8 % (20-45) L Monocytes % (Manual) 1 % (1-10) Eosinophils % (Manual) 0 % (0-3) Basophils % (Manual) 0 % (0-2) Band Neutrophils 0 % (0-8) Platelet Estimate Decreased L Platelet Morphology Normal Hypochromasia 1+ Anisocytosis 1+ Sodium Level 133 MMOL/L (136-145) L Potassium Level 3.8 MMOL/L (3.5-5.1) Chloride Level 97 MMOL/L (98-107) L Carbon Dioxide Level 18 MMOL/L (21-32) L Anion Gap 18 mmol/L (5-15) H Blood Urea Nitrogen 119 mg/dL (7-18) H Creatinine 3.0 MG/DL (0.55-1.30) H Estimat Glomerular Filtration Rate 16.7 mL/min (>60) Glucose Level 148 MG/DL (74-106) H Uric Acid 7.9 MG/DL (2.6-7.2) H Calcium Level 6.2 MG/DL (8.5-10.1) L Phosphorus Level 8.0 MG/DL (2.5-4.9) H Total Bilirubin 0.3 MG/DL (0.2-1.0) Aspartate Amino Transf (AST/SGOT) 71 U/L (15-37) H Alanine Aminotransferase (ALT/SGPT) 23 U/L (12-78) Alkaline Phosphatase 136 U/L (46-116) H Total Creatine Kinase 286 U/L (26-308) C-Reactive Protein, Quantitative 7.0 mg/dL (0.00-0.90) H Pro-B-Type Natriuretic Peptide > 27231 pg/mL (0-125) H Total Protein 5.1 G/DL (6.4-8.2) L Albumin 1.8 G/DL (3.4-5.0) L Globulin 3.3 g/dL Albumin/Globulin Ratio 0.5 (1.0-2.7) L Amylase Level 539 U/L (25-115) *H Lipase > 2000 U/L (73-393) H Test 03/11/20 12:50 03/11/20 18:55 Prothrombin Time 15.1 SEC (9.30-11.50) H Prothromb Time International Ratio 1.4 (0.9-1.1) H Activated Partial Thromboplast Time 29 SEC (23-33) POC Whole Blood Glucose 123 MG/DL (74-106) H Assessment/Plan Assessment/Plan Aortic dissections Sepsis with recovered shock Sinus node disease with bradycardia Hx pacemaker explant Ischemic cardiomyopathy - hx CABG? Paroxysmal Atrial Fib Respiratory failure with trach Hx thoracic aortic aneurysm repair Will try low dose beta flori (with hold parameter) - as tolerated by sinus node disease rodeo rider Vent support Monitor and replace lytes Antimicrobials DVT prophyl No urgent indication for pacemaker in bedbound patient Needs higher level of care ultimately for repair of aortic dissection. Deni Willams MD Mar 11, 2020 19:17
--- NOTE | 2020-03-11 19:37 | NUR ---
NURSE HAND-OFF REPORT: Important Events on Shift:Thoracentesis cancelled as not enough fluid for safe procedure. 1 Unit PRBC's given today. Patient Status: stable Diet: Nepro@35ML/HR Pending Orders: Pending Results/Labs: Pending MD notification: Latest Vital Signs: Temperature 97.9 , Pulse 71 , B/P 150 /73 , Respiratory Rate 21 , O2 SAT 99 , Mechanical Ventilator, O2 Flow Rate . Vital Sign Comment: EKG Rhythm: Sinus Rhythm Rhythm change?: N Notified?: N -Dr Екатерина HATFIELD Response: No New Orders Received Latest Chavarria Fall Score: 50 Fall Risk: High Risk Safety Measures: Call light Within Reach, Bed Alarm Zone 1, Side Rails Side Rails x2, Bed position Low and Locked. Fall Precautions: Yellow Socks Report given to Amina RN.
[2020-03-11 20:00] VITALS: BP 135/60
[2020-03-11] MEDS: Dyna-Hex 2% Top Sol 2oz TOPIC SCH (20:17)
--- NOTE | 2020-03-11 22:00 | General Progress Note ---
Subjective Constitutional: Reports: no symptoms HEENT: Reports: no symptoms Cardiovascular: Reports: no symptoms Respiratory: Reports: no symptoms Gastrointestinal/Abdominal: Reports: no symptoms Genitourinary: Reports: no symptoms Neurologic/Psychiatric: Reports: no symptoms Endocrine: Reports: no symptoms Hematologic/Lymphatic: Reports: no symptoms Allergies: Coded Allergies: No Known Allergies (Unverified , 10/10/17) Objective Last 24 Hour Vital Signs Date Time Temp Pulse Resp B/P (MAP) Pulse Ox O2 Delivery O2 Flow Rate FiO2 03/11/20 20:18 72 135/60 03/11/20 20:00 97.3 72 16 135/60 (85) 100 03/11/20 20:00 40 03/11/20 20:00 Mechanical Ventilator 03/11/20 16:00 71 03/11/20 16:00 97.9 74 21 150/73 (98) 99 03/11/20 16:00 40 03/11/20 16:00 Mechanical Ventilator 03/11/20 15:04 62 18 40 03/11/20 12:00 97.7 71 21 139/67 (91) 100 03/11/20 11:50 70 03/11/20 11:16 Mechanical Ventilator 03/11/20 11:16 40 03/11/20 11:02 64 20 40 03/11/20 08:00 40 03/11/20 08:00 Mechanical Ventilator 03/11/20 08:00 97.2 70 21 130/65 (86) 100 03/11/20 07:36 72 03/11/20 07:15 63 20 40 03/11/20 04:00 Mechanical Ventilator 03/11/20 04:00 97.2 65 22 122/59 (80) 100 03/11/20 04:00 64 03/11/20 04:00 40 03/11/20 03:45 65 20 40 03/11/20 00:00 97.7 65 22 127/58 (81) 100 03/11/20 00:00 40 03/11/20 00:00 Mechanical Ventilator 03/11/20 00:00 62 03/10/20 23:56 62 16 40 Intake and Output 03/10/20 03/11/20 19:00 07:00 Intake Total 720 ml 520 ml Balance 720 ml 520 ml Intake Free Water 300 ml 100 ml Tube Feeding 420 ml 420 ml # Voids 1 # Bowel Movements 1 2 Laboratory Tests 03/11/20 00:51: POC Whole Blood Glucose 149H 03/11/20 05:24: White Blood Count 21.4H, Red Blood Count 2.52L, Hemoglobin 7.5L, Hematocrit 22.8L, Mean Corpuscular Volume 91, Mean Corpuscular Hemoglobin 29.8, Mean Corpuscular Hemoglobin Concent 32.9, Red Cell Distribution Width 15.2H, Platelet Count 82L, Mean Platelet Volume 11.3H, Neutrophils (%) (Auto) , Lymphocytes (%) (Auto) , Monocytes (%) (Auto) , Eosinophils (%) (Auto) , Basophils (%) (Auto) , Differential Total Cells Counted 100, Neutrophils % (Manual) 91H, Lymphocytes % (Manual) 8L, Monocytes % (Manual) 1, Eosinophils % (Manual) 0, Basophils % (Manual) 0, Band Neutrophils 0, Platelet Estimate DecreasedL, Platelet Morphology Normal, Hypochromasia 1+, Anisocytosis 1+, Sodium Level 133L, Potassium Level 3.8, Chloride Level 97L, Carbon Dioxide Level 18L, Anion Gap 18H , Blood Urea Nitrogen 119H, Creatinine 3.0H, Estimat Glomerular Filtration Rate 16.7, Glucose Level 148H, Uric Acid 7.9H, Calcium Level 6.2L, Phosphorus Level 8.0H, Total Bilirubin 0.3, Aspartate Amino Transf (AST/SGOT) 71H, Alanine Aminotransferase (ALT/SGPT) 23, Alkaline Phosphatase 136H, Total Creatine Kinase 286, C-Reactive Protein, Quantitative 7.0H, Pro-B-Type Natriuretic Peptide > 37438Q, Total Protein 5.1L, Albumin 1.8L, Globulin 3.3, Albumin/Globulin Ratio 0.5L, Amylase Level 539*H, Lipase > 2000H 03/11/20 05:42: POC Whole Blood Glucose 145H 03/11/20 12:09: POC Whole Blood Glucose 132H 03/11/20 12:50: Prothrombin Time 15.1H, Prothromb Time International Ratio 1.4H, Activated Partial Thromboplast Time 29 03/11/20 18:55: POC Whole Blood Glucose 123H Height (Feet): 5 Height (Inches): 3.00 Weight (Pounds): 128 General Appearance: WD/WN, no apparent distress, alert, lethargic EENT: normal ENT inspection Neck: supple Cardiovascular: normal rate, regular rhythm, no gallop/murmur, no JVD Respiratory/Chest: no respiratory distress, no accessory muscle use, decreased breath sounds, rhonchi - left Abdomen: normal bowel sounds, non tender, soft, no organomegaly, no mass Extremities: non-tender Edema: 2+ Leg (R), 2+ Pedal (L) Edema: mild edema Neurologic: alert, responsive, aphasia Assessment/Plan Status Narrative Awake alert afebrile hemodynamically stable without bradycardia with eye contact and near normal attention span but no attempt to communicate and laboratory test finally responding to the current antibiotic of daptomycin IV case and tobramycin BC decline now from 26-21 as it and high proBNP chest wall ultrasound was ordered yesterday that revealed that the large pleural effusion seen on chest CT had contained only a small amount of fluid that does not need to be tapped however for the overwhelming finding in this patient in the last several days he is 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 Lucas Vera MD, MD Mar 11, 2020 22:00
[2020-03-12] VITALS: BP 134/64
--- NOTE | 2020-03-12 | NUR ---
NURSE NOTES: Pt sleeping and tolerating well on non rebreather mask 15l. No acute distress noted at this time
[2020-03-12 04:00] VITALS: BP 134/66
[2020-03-12] MEDS: Renvela 800mg Pkt NG SCH ×4 (05:26→23:46)
[2020-03-12] MEDS: Metoclopramide 10mg/2ml Inj IVP SCH ×3 (05:26→21:19)
--- NOTE | 2020-03-12 05:52 | NUR ---
NURSE NOTES: Provided incontinent care and wound dressing changed as order. Oral care given and suction for trache and oral provided, tolerating well.
[2020-03-12 06:03] LABS: HEMATOCRIT 25.3 % (37.0-47.0); HEMOGLOBIN 8.4 G/DL (12.0-16.0); MEAN CORPUSCULAR VOLUME 89 FL (80-99); PLATELET COUNT 80 K/UL (150-450); RED BLOOD COUNT 2.84 M/UL (4.20-5.40); RED CELL DISTRIBUTION WIDTH 15.6 % (11.6-14.8); WHITE BLOOD COUNT 14.4 K/UL (4.8-10.8)
--- NOTE | 2020-03-12 06:32 | Hematology/Onc Progress Note ---
Assessment/Plan Assessment/Plan # Leukocytosis, now with likely bacteremia, as per ID care --> Cxr: : Large left abiola consolidation/effusion --> wbc 30-->40-->27->30->29-->35->32-->28-->21 --> ABX angelo/vanc-->tobra/edson/vanc --> smear reviewed --> ID recs are noted # Elevated tumor markers, cea and ca 19.9 --> reviewed prior 01/27/20 cat scan a/p --> no masses noted, hold off further extensive w/u # Anemia of chronic disease due to underlying chronic medical issues, multifac torial --> Anemia workup has been reviewed, cw acd --> No evidence of hemolysis is noted, peripheral smear has been reviewed. --> Hgb goal >7. Transfuse prn. --> Epogen required in prior --> Medications have been reviewed --> low threshold for gi evaluation in case has occult + --> hgb 1.9-->5-->7.1-->8.8-->8.1->7.5 --> 1 unit prbc10/17, 2 units 01/15, 03/02 --> gi eval as needed # Coagulopathy with inr 1.5 --> consider vit k/ffp as needed preprocedure --> labs noted # Thrombocytopenia likely reactive v medication indcued --> plt 200-->129->91 --> r/o dic # Aortic dissection as seen on Ct ==> when stable, consider transfer hloc # JAVIER initially >2 --> on ivfs --> per renal # Elevated d-dimer, likely infection related --> venous duplex prior neg --> in prior neg # Dysphagia s/p peg --> as per gi # Thoracic aortic dissection --> s/p repair early 2017 # Chronic Resp failure -> s/p trach/vent # Psychiatric history on ativan/haldol # DC resident # Dvt ppx --> scds The timing of this note does not necessarily reflect the time of the patient was seen. Greatly appreciate consultation. Subjective Constitutional: Denies: no symptoms, chills, fever, malaise, weakness, other HEENT: Denies: no symptoms, eye pain, blurred vision, tearing, double vision, ear pain, ear discharge, nose pain, nose congestion, throat pain, throat swelling, mouth pain, mouth swelling, other Cardiovascular: Denies: no symptoms, chest pain, edema, irregular heart rate, lightheadedness, palpitations, syncope, other Gastrointestinal/Abdominal: Denies: no symptoms, abdomen distended, abdominal pain, black stools, tarry stools, blood in stool, constipated, diarrhea, difficulty swallowing, nausea, poor appetite, poor fluid intake, rectal bleeding, vomiting, other Genitourinary: Denies: no symptoms, burning, discharge, frequency, flank pain, hematuria, incontinence, pain, urgency, other Neurologic/Psychiatric: Denies: no symptoms, anxiety, depressed, emotional problems, headache, numbness, paresthesia, pre-existing deficit, seizure, tingling, tremors, weakness, other Endocrine: Denies: no symptoms, excessive sweating, flushing, intolerance to cold, intolerance to heat, increased hunger, increased thirst, increased urine, unexplained weight gain, unexplained weight loss, other Allergies: Coded Allergies: No Known Allergies (Unverified , 10/10/17) Subjective 03/04 for 1 unit transfusion this am as hgb remains low, wbc better 03/05 egd was done did show large nonbleeding gastric ulcer, high tumor markers 03/06 nv, with davis overnight, bp remains stable, with occult + stool, dw Rn 03/09 nv, remains stable, on vanc/tobra/edson, meds reviewed, no bleeding 03/10 nv, on vent, no bleeding, receiving abx, no night sweats 03/11 nv, roman surgeon and pcp, with aortic dissection to transfer [facility] when stable 03/12 nv, labs reviewed, wbc 21, hgb 7.5, otherwise is comfortable Objective Objective Current Medications Medications (Trade) Dose Ordered Sig/Penny Route PRN Reason Start Time Stop Time Status Last Admin Dose Admin Acetaminophen (Tylenol) 650 mg Q6H PRN GT Mild Pain (Pain Scale 1-3) 03/02/20 22:30 04/01/20 22:29 03/11/20 15:24 Acetaminophen (Tylenol) 650 mg Q6H PRN GT Temp >100.5 03/03/20 03:00 04/01/20 22:29 Aspirin (ASA) 81 mg DAILY GT 03/07/20 09:00 04/21/20 08:59 03/11/20 09:49 Carvedilol (Coreg) 3.125 mg EVERY 12 HOURS GT 03/11/20 21:00 04/10/20 20:59 03/11/20 20:18 Ceftazidime/ Avibactam 0.94 gm/ Dextrose 110 ml @ 110 mls/hr Q12HR IV 03/06/20 13:00 03/20/20 23:59 03/11/20 20:58 Chlorhexidine Gluconate (Ling-Hex 2%) 1 applic DAILY@2000 TOPIC 03/03/20 20:00 06/01/20 19:59 03/11/20 20:17 Daptomycin 500 mg/ Sodium Chloride 50 ml @ 100 mls/hr Q48H IV 03/10/20 13:00 03/17/20 12:59 03/10/20 13:11 Hydralazine HCl (Apresoline) 25 mg Q6H PRN GT For High Blood Pressure 03/02/20 22:00 05/31/20 21:59 Loperamide HCl (Imodium) 2 mg Q6H PRN GT Diarrhea 03/06/20 12:45 04/05/20 12:44 03/06/20 13:01 Metoclopramide HCl (Reglan) 5 mg Q8HR IVP 03/04/20 11:45 04/03/20 11:44 03/12/20 05:26 Midodrine (Pro-Amatine) 10 mg THREE TIMES A DAY GT 03/04/20 13:00 06/01/20 12:59 03/11/20 09:49 Pantoprazole (Protonix) 40 mg EVERY 12 HOURS IVP 03/04/20 21:00 04/02/20 20:59 03/11/20 20:18 Polyethylene Glycol (Miralax) 17 gm BEDTIME PRN GT Constipation 03/02/20 22:00 04/01/20 21:59 Sevelamer Carbonate (Renvela) 1,600 mg Q6HR NG 03/11/20 12:00 06/08/20 11:59 03/12/20 05:26 Sodium Hypochlorite (Dakin's Quarter Strength) 1 applic DAILY TOPIC 03/04/20 09:00 04/03/20 08:59 03/11/20 09:00 Sucralfate (Carafate) 1 gm FOUR TIMES A DAY GT 03/11/20 09:00 06/09/20 08:59 03/11/20 20:17 Tobramycin Protocol (Tobramycin pharmacy to dose) 1 ea DAILY PRN MISC Per rx protocol 03/06/20 09:15 04/05/20 09:14 Tobramycin Sulfate 80 mg/ Sodium Chloride 55 ml @ 110 mls/hr POSTHD IV 03/06/20 12:00 03/13/20 11:59 03/11/20 16:26 Last 24 Hour Vital Signs Date Time Temp Pulse Resp B/P (MAP) Pulse Ox O2 Delivery O2 Flow Rate FiO2 03/12/20 04:00 40 03/12/20 04:00 72 03/12/20 04:00 97.3 72 23 134/66 (88) 100 03/12/20 04:00 40 03/12/20 04:00 Mechanical Ventilator 03/12/20 01:00 75 24 40 03/12/20 00:00 98.1 69 17 134/64 (87) 99 03/12/20 00:00 40 03/12/20 00:00 Mechanical Ventilator 03/11/20 23:17 70 03/11/20 20:18 72 135/60 03/11/20 20:00 97.3 72 16 135/60 (85) 100 03/11/20 20:00 40 03/11/20 20:00 Mechanical Ventilator 03/11/20 19:01 68 03/11/20 19:00 67 18 40 03/11/20 16:00 71 03/11/20 16:00 97.9 74 21 150/73 (98) 99 03/11/20 16:00 40 03/11/20 16:00 Mechanical Ventilator 03/11/20 15:04 62 18 40 03/11/20 12:00 97.7 71 21 139/67 (91) 100 03/11/20 11:50 70 03/11/20 11:16 Mechanical Ventilator 03/11/20 11:16 40 03/11/20 11:02 64 20 40 03/11/20 08:00 40 03/11/20 08:00 Mechanical Ventilator 03/11/20 08:00 97.2 70 21 130/65 (86) 100 03/11/20 07:36 72 03/11/20 07:15 63 20 40 03/11/20 04:00 Mechanical Ventilator 03/11/20 04:00 97.2 65 22 122/59 (80) 100 03/11/20 04:00 64 03/11/20 04:00 40 03/11/20 03:45 65 20 40 03/11/20 00:00 97.7 65 22 127/58 (81) 100 03/11/20 00:00 40 03/11/20 00:00 Mechanical Ventilator 03/11/20 00:00 62 03/10/20 23:56 62 16 40 03/10/20 20:09 40 03/10/20 20:00 Mechanical Ventilator 03/10/20 20:00 66 03/10/20 20:00 98.5 67 20 122/57 (78) 98 03/10/20 19:48 67 18 40 03/10/20 16:00 68 03/10/20 16:00 40 03/10/20 16:00 98.1 66 21 133/73 (93) 99 03/10/20 16:00 Mechanical Ventilator 03/10/20 15:18 67 19 40 03/10/20 12:00 66 03/10/20 12:00 Mechanical Ventilator 03/10/20 12:00 98.2 72 19 122/70 (87) 99 03/10/20 12:00 40 03/10/20 10:40 66 22 40 03/10/20 08:18 73 03/10/20 08:00 97.9 76 21 126/70 (88) 99 03/10/20 08:00 Mechanical Ventilator 03/10/20 08:00 40 03/10/20 07:04 71 18 40 Intake and Output 03/11/20 03/12/20 19:00 07:00 Intake Total 870 ml Balance 870 ml Intake Free Water 200 ml Tube Feeding 420 ml Blood Product 250 ml # Voids 2 # Bowel Movements 2 3 Labs Test 03/09/20 20:13 03/10/20 03:45 03/10/20 05:48 03/11/20 00:51 White Blood Count 26.0 K/UL (4.8-10.8) Red Blood Count 2.68 M/UL (4.20-5.40) Hemoglobin 8.2 G/DL (12.0-16.0) Hematocrit 24.1 % (37.0-47.0) Mean Corpuscular Volume 90 FL (80-99) Mean Corpuscular Hemoglobin 30.6 PG (27.0-31.0) Mean Corpuscular Hemoglobin Concent 34.0 G/DL (32.0-36.0) Red Cell Distribution Width 15.6 % (11.6-14.8) Platelet Count 93 K/UL (150-450) Mean Platelet Volume 11.0 FL (6.5-10.1) Neutrophils (%) (Auto) % (45.0-75.0) Lymphocytes (%) (Auto) % (20.0-45.0) Monocytes (%) (Auto) % (1.0-10.0) Eosinophils (%) (Auto) % (0.0-3.0) Basophils (%) (Auto) % (0.0-2.0) Differential Total Cells Counted 100 Neutrophils % (Manual) 85 % (45-75) Lymphocytes % (Manual) 12 % (20-45) Monocytes % (Manual) 3 % (1-10) Eosinophils % (Manual) 0 % (0-3) Basophils % (Manual) 0 % (0-2) Band Neutrophils 0 % (0-8) Platelet Estimate Decreased Platelet Morphology Normal Hypochromasia 2+ Sodium Level 135 MMOL/L (136-145) Potassium Level 4.2 MMOL/L (3.5-5.1) Chloride Level 99 MMOL/L (98-107) Carbon Dioxide Level 19 MMOL/L (21-32) Anion Gap 17 mmol/L (5-15) Blood Urea Nitrogen 110 mg/dL (7-18) Creatinine 2.8 MG/DL (0.55-1.30) Estimat Glomerular Filtration Rate 18.1 mL/min (>60) Glucose Level 115 MG/DL (74-106) Calcium Level 6.3 MG/DL (8.5-10.1) Phosphorus Level 8.0 MG/DL (2.5-4.9) Magnesium Level 2.1 MG/DL (1.8-2.4) Total Bilirubin 0.4 MG/DL (0.2-1.0) Aspartate Amino Transf (AST/SGOT) 58 U/L (15-37) Alanine Aminotransferase (ALT/SGPT) 17 U/L (12-78) Alkaline Phosphatase 171 U/L (46-116) Total Creatine Kinase 352 U/L (26-308) C-Reactive Protein, Quantitative 6.7 mg/dL (0.00-0.90) Total Protein 4.9 G/DL (6.4-8.2) Albumin 1.9 G/DL (3.4-5.0) Globulin 3.0 g/dL Albumin/Globulin Ratio 0.6 (1.0-2.7) POC Whole Blood Glucose 123 MG/DL (74-106) 149 MG/DL (74-106) Test 03/11/20 05:24 03/11/20 05:42 03/11/20 12:09 03/11/20 12:50 White Blood Count 21.4 K/UL (4.8-10.8) Red Blood Count 2.52 M/UL (4.20-5.40) Hemoglobin 7.5 G/DL (12.0-16.0) Hematocrit 22.8 % (37.0-47.0) Mean Corpuscular Volume 91 FL (80-99) Mean Corpuscular Hemoglobin 29.8 PG (27.0-31.0) Mean Corpuscular Hemoglobin Concent 32.9 G/DL (32.0-36.0) Red Cell Distribution Width 15.2 % (11.6-14.8) Platelet Count 82 K/UL (150-450) Mean Platelet Volume 11.3 FL (6.5-10.1) Neutrophils (%) (Auto) % (45.0-75.0) Lymphocytes (%) (Auto) % (20.0-45.0) Monocytes (%) (Auto) % (1.0-10.0) Eosinophils (%) (Auto) % (0.0-3.0) Basophils (%) (Auto) % (0.0-2.0) Differential Total Cells Counted 100 Neutrophils % (Manual) 91 % (45-75) Lymphocytes % (Manual) 8 % (20-45) Monocytes % (Manual) 1 % (1-10) Eosinophils % (Manual) 0 % (0-3) Basophils % (Manual) 0 % (0-2) Band Neutrophils 0 % (0-8) Platelet Estimate Decreased Platelet Morphology Normal Hypochromasia 1+ Anisocytosis 1+ Sodium Level 133 MMOL/L (136-145) Potassium Level 3.8 MMOL/L (3.5-5.1) Chloride Level 97 MMOL/L (98-107) Carbon Dioxide Level 18 MMOL/L (21-32) Anion Gap 18 mmol/L (5-15) Blood Urea Nitrogen 119 mg/dL (7-18) Creatinine 3.0 MG/DL (0.55-1.30) Estimat Glomerular Filtration Rate 16.7 mL/min (>60) Glucose Level 148 MG/DL (74-106) Uric Acid 7.9 MG/DL (2.6-7.2) Calcium Level 6.2 MG/DL (8.5-10.1) Phosphorus Level 8.0 MG/DL (2.5-4.9) Total Bilirubin 0.3 MG/DL (0.2-1.0) Aspartate Amino Transf (AST/SGOT) 71 U/L (15-37) Alanine Aminotransferase (ALT/SGPT) 23 U/L (12-78) Alkaline Phosphatase 136 U/L (46-116) Total Creatine Kinase 286 U/L (26-308) C-Reactive Protein, Quantitative 7.0 mg/dL (0.00-0.90) Pro-B-Type Natriuretic Peptide > 35297 pg/mL (0-125) Total Protein 5.1 G/DL (6.4-8.2) Albumin 1.8 G/DL (3.4-5.0) Globulin 3.3 g/dL Albumin/Globulin Ratio 0.5 (1.0-2.7) Amylase Level 539 U/L (25-115) Lipase > 2000 U/L (73-393) POC Whole Blood Glucose 145 MG/DL (74-106) 132 MG/DL (74-106) Prothrombin Time 15.1 SEC (9.30-11.50) Prothromb Time International Ratio 1.4 (0.9-1.1) Activated Partial Thromboplast Time 29 SEC (23-33) Test 03/11/20 18:55 03/12/20 00:36 03/12/20 04:54 03/12/20 05:43 POC Whole Blood Glucose 123 MG/DL (74-106) 112 MG/DL (74-106) 94 MG/DL (74-106) Height (Feet): 5 Height (Inches): 3.00 Weight (Pounds): 128 Objective Physical Exam: Vitals: reviewed General: NAD HEENT: nc, at Neck: supple ++trach/vent Chest: clear breath sounds bilaterally Cardiovascular: RRR, no s3, s4 Abdomen: soft, nontender, nd +gtube Extremities: no cce, normal range of motion Neuro: alert Evan Muhammad MD Mar 12, 2020 06:32
[2020-03-12 06:45] LABS: PHOSPHORUS 5.2 MG/DL (2.5-4.9)
[2020-03-12 06:56] LABS: ALBUMIN 1.7 G/DL (3.4-5.0); ALBUMIN/GLOBULIN RATIO 0.5 (1.0-2.7); BILIRUBIN,TOTAL 0.3 MG/DL (0.2-1.0); CALCIUM 6.6 MG/DL (8.5-10.1); CREATININE 2.4 MG/DL (0.55-1.30); POTASSIUM 3.5 MMOL/L (3.5-5.1)
--- NOTE | 2020-03-12 07:30 | NUR ---
NURSE NOTES: Received report from Simona (4E RN), and ERASMO Nix. Pt is lying in bed, not sign of facial grimacing, not in acute distress, non-verbal but communicates via facial expression. Trach to vent tolerating the following setting: AC14, TV 500, FiO2 40%, PEEP 5 saturating 98%. VSS. G-tube is intact and patent running Nepro @ 35cc/hr with no residua. Peripheral IV in R forearm 20G, and L forearm 22 G is intact and patent. Perma cath. in R upper chest is intact and patent with no bleeding noted. Recent labs, medication and MD orders reviewed. Bed is locked and in lowest position, bed alarm on, call light is within reach. Will continue to monitor pt
--- NOTE | 2020-03-12 07:30 | NUR ---
NURSE HAND-OFF REPORT: Important Events on Shift:Dr. Dong Patient Status: Stable Diet: GT Pending Orders: Pending Results/Labs: Pending MD notification: Latest Vital Signs: Temperature 97.3 , Pulse 72 , B/P 134 /66 , Respiratory Rate 23 , O2 SAT 100 , Mechanical Ventilator, O2 Flow Rate . Vital Sign Comment: EKG Rhythm: Sinus Rhythm Rhythm change?: N MD Notified?: N -Dr Екатерина HATFIELD Response: No New Orders Received Latest [place] Fall Score: 50 Fall Risk: High Risk Safety Measures: Call light Within Reach, Bed Alarm Zone 1, Side Rails Side Rails x2, Bed position Low and Locked. Fall Precautions: Yellow Socks Report given to ERASMO Mcgovern.
[2020-03-12 08:00] VITALS: BP 128/62
[2020-03-12] MEDS: Aspirin Baby 81mg GT SCH (08:31)
[2020-03-12] MEDS: CEFTAZIDIME IV SCH ×2 (08:32→21:19)
[2020-03-12] MEDS: Pantoprazole Inj IVP SCH ×2 (08:32→20:21)
[2020-03-12] MEDS: D5W IV SCH ×2 (08:32→21:19)
[2020-03-12] MEDS: AVIBACTAM IV SCH ×2 (08:32→21:19)
[2020-03-12] MEDS: Midodrine 10mg tab GT SCH ×3 (08:33→17:03)
[2020-03-12] MEDS: Sucralfate 1gm tab GT SCH ×4 (08:33→20:21)
[2020-03-12] MEDS: Dakin's 0.125% Soln (Quarter Strength) 16oz TOPIC SCH (08:34)
--- NOTE | 2020-03-12 08:44 | Infectious Diseases Prog Note ---
Assessment/Plan 49yo F with: MDR Kleb pna bacteremia AMS Anemia to 1.9 on admission 03/02 Leukocytosis to 40, improving GPC bacteremia UTI Pneumonia c/b mod-large R pleural effusion and small L pleural effusion - compressive atelectasis Hypotension 03/02 BCx 1/2 +Staph epi, 12 +Staph haemolyticus (m/l skin colonizers) UA+, UCx >100k P.stuartii (S-angelo) & CRE P.mirablis (R-polyB/colistin, S- tobramycin, per [facility] is "intrinsically resistant to Avycaz/Zerbaxa" not clear why to me and they are unable to elaborate more) COVID rapid neg, PCR neg CXR: Tracheostomy again demonstrated. Interim placement of a right jugular tunneled dialysis catheter. There is infiltrate and volume loss in the left lung, particularly in the perihilar region, suprahilar region, and base. Consolidation at the lung base is similar. The perihilar and suprahilar region consolidation is new. The right lung pleural space are clear. C.dif neg 03/03 BCx NTD 03/06 BCx 2/2 +MDR Kleb pna (arnett-R, including R-polyB, colistin), 02/14 +E.faecium VRE (R-amp, S-linezolid) 03/08 BCx NTD 03/09 CT CAP: Very limited exam, as described, due to massive anasarca. This could limit visualization of the discrete fluid collection such as an abscess. Extensive thoracoabdominal aortic dissection, as described above. Current flap begins just distal to the left subclavian artery origin; per report, there is history of surgical repair so there may have been surgical repair of the ascending thoracic aorta. Bilateral pleural effusions, slightly smaller than on earlier exams. Extensive atelectasis as a result. Extensive pulmonary par enchymal disease as detailed above. This may reflect pneumonia or pulmonary edema or both. Evidence of pulmonary arterial hypertension, with dilatation of the pulmonary artery. Considerable ascites fluid. 03/11 Chest US: Small right, trace left pleural effusions, insufficient for safe thoracentesis AF Sepsis Leukocytosis Hypoxia on vent Pneumonia c/b L pleural effusion (recurrent, prior determined to be transudative) - s/p thora 01/21, 1050cc removed Volume overload, BNP >35,0000, likely 2/2 progressive CKD --> ESRD ?Pancreatitis, Lipase >2000 Acute anemia to 5s CONS bacteremia, ?contaminant Aflutter w/ RVR 01/13 BCx 2/2 +S. epi COVID PCR neg Flu neg CXR: Large left pleural effusion. Bilateral interstitial and airspace infiltrates versus edema MRSA nares neg 01/16 BCx NTD 01/17 BCx / +Staph auricularis (skin colonizer) 01/18 Resp cx +MDR CRE PsA (S-gent, I-colistin, R-polyB) 01/18 C.dif neg 01/18 CXR: Similar opacification of the left hemithorax likely representing combination of pleural effusion with atelectasis versus pneumonia/edema. Decreased but persistent hazy opacity throughout the right lung may represent edema versus infectious/inflammatory process. 01/20 BCx NTD 01/21 L thora 1050 cc removed, cx NTD 01/25 Wound cx from Gtube site +CRE Kleb pna (arnett-R) and MDR PsA (colonizers) 01/26 CT A/P: Limited exam, due to severe diffuse anasarca. Ascites. Bilateral pleural effusions. Basilar pulmonary atelectatic changes and consolidation. Gastrostomy. Atrophic left kidney with a nephroureteral stents again demonstrated. Possible retrococcygeal decubitus changes. Correlate with clinical findings, consider MRI if there is concern for sacral osteomyelitis. Right hip intertrochanteric fracture, also previously demonstrated. Left femoral dialysis catheter. Nonspecific right lobe liver lesion is unchanged, not well- demonstrated. ctasia bordering on aneurysmal dilatation and possible chronic dissection of the distal thoracic aorta, also previously described. JAVIER on CKD On previous admission Sep-Oct 2019 required HD for short period Going to start HD this admission again R/o COVID 01/14 COVID PCR neg 12/29 neg at [facility] per report H/o UTI 11/27 u/a wbc 30-40, nit neg, leuk +3; ucx ESBL P. mirablis, ESBL M. morganii 09/14/ u/a wbc tnct, nit neg, leuk +3; ucx >100k MDR P. stuarti (S Ceftriaxone, Meropenem) 10/07 u/a wbc tnct, nit neg, leuk ; ucx >100k VRE 10/15/19 u/a wbc tnct; ucx >100k ESBL P. stuarti (S ertapenem, aztreonam) H/o transudative pleural effusion 11/28 Sp Thora (w: 169, PMN: 2%, L: 49% , LDH: 57, prot 2.5); cx Neg H/o PNA 10/15/19 Resp cx ESBL P. mirabilis, MDR P.a. (S only to Gent) 09/22 Resp cx + MDR PsA (S-gent; I-colistin; R-levofloxacin, Zosyn, angelo) 09/16/19 Sp cx ESBL P. mirablis H/o PPM site (pocket) infection and pocket abscess 2ry to S. epi-11/2018, sp >6weeks IV vancomycin 11/27 SP ABBIE: no evidence for vegetation on any of the valves 11/26/18 SP PPM removal: OR findings:The fibrous capsule enclosing the generator was then opened and there was a [id number] amount of yellowish fluid drainage. The generator was then removed.Atrial and ventricular leads were detached. The necrotic tissue of the pocket was then removed and the pocket was flushed with an antibiotic solution. Capsule, wound tissue and lead tip cx: Neg 2d echo: no vegetation seen US chest: 4.6 x 3.4 x 0.9 cm hypoechoic/anechoic area overlying left chest pacemaker power pack. This could represent either a discrete fluid collection or a focal area of very edematous tissue. Infected fluid pocket also possible. 11/18 Bcx 3/4 S. epi; 11/20 Bcx neg; 11/24 Bcx Neg; 11/27 Bcx Neg CAD s/p CABG GERD/gastritis Afib HTN Dysphagia sp GT Aortic dissection s/p repair 2017 S/p PPM Parkinson's Disease Schizophrenia Anxiety COPD Chronic resp failure s/p trach Hx of tracheal bleeding [place] resident ([facility]) VRE and MRSA colonized Plan: Cont daptomycin #3 given transient VRE bacteremia, sepsis - will need 14 day course from neg BCx 03/08, end date 03/21 CK on 03/1145=738, decreasing, ordered for tomorrow AM to trend Cont Avycaz #7 given MDR Kleb pna bacteremia - will need 14 day course from neg BCx 03/08, end date 03/21 Cont tobramycin #7/10 per Pharmacy given +UCx results Appreciate Surgery input on thoracic aortic aneurysm noted on CT imaging - d/w Dr. Saavedra, pt needs emergent transfer out to [facility] for CT surgery evaluation, primary MD aware Given somewhat transient MDR Kleb pna bacteremia (was not on admission BCx and cleared rapidly after positive BCx), no current indication to remove Permacath as less likely 2/2 line infection and more likely 2/2 gut translocation in setting of GIB, though if leukocytosis persists despite appropriate abx, then will have to reconsider. F/u 03/06 BCx +MDR Kleb pna - need sensi to Avycaz/Zerbaxa (d/w lab, will perform) Trend Hg, GIB Trend BP, WBC 03/10/20 SP edson #4 empiric, vanco #9 01/31 SP angelo/inh tobra #10 for pna 01/23 SP vanco IV #10 given CONS/GPC bacteremia 01/16 SP Zosyn #2 01/14 SP dex 10mg in ED 12/10 SP IV Gentamycin #10 12/07 SP Meropenem #10 12/01 SP IV Vancomycin #5 11/28 Sp Cefepime #2 and IV Gentamycin x1 Monitor CBC/CMP Monitor temp curve, hemodynamics Monitor resp status D/w RN Thank you for this consult. [facility] will continue to follow. Subjective Allergies: Coded Allergies: No Known Allergies (Unverified , 10/10/17) AF WBC improving to 14 Chest US w/ too little pleural effusions for safe thora Waiting on transfer to [facility] Comfortable on vent 40% PEEP 5 Objective Last 24 Hour Vital Signs Date Time Temp Pulse Resp B/P (MAP) Pulse Ox O2 Delivery O2 Flow Rate FiO2 03/12/20 08:33 69 128/62 03/12/20 08:00 Mechanical Ventilator 03/12/20 08:00 97.0 69 20 128/62 (84) 99 03/12/20 08:00 40 03/12/20 07:20 69 17 40 03/12/20 04:00 40 03/12/20 04:00 72 03/12/20 04:00 97.3 72 23 134/66 (88) 100 03/12/20 04:00 40 03/12/20 04:00 Mechanical Ventilator 03/12/20 01:00 75 24 40 03/12/20 00:00 98.1 69 17 134/64 (87) 99 03/12/20 00:00 40 03/12/20 00:00 Mechanical Ventilator 03/11/20 23:17 70 03/11/20 20:18 72 135/60 03/11/20 20:00 97.3 72 16 135/60 (85) 100 03/11/20 20:00 40 03/11/20 20:00 Mechanical Ventilator 03/11/20 19:01 68 03/11/20 19:00 67 18 40 03/11/20 16:00 71 03/11/20 16:00 97.9 74 21 150/73 (98) 99 03/11/20 16:00 40 03/11/20 16:00 Mechanical Ventilator 03/11/20 15:04 62 18 40 03/11/20 12:00 97.7 71 21 139/67 (91) 100 03/11/20 11:50 70 03/11/20 11:16 Mechanical Ventilator 03/11/20 11:16 40 03/11/20 11:02 64 20 40 Height (Feet): 5 Height (Inches): 3.00 Weight (Pounds): 128 Gen: NAD HEENT: NCAT, trach Pulm: BL chest rise on vent Abd: Soft, NTND, +PEG Ext: No c/c/e Skin: No visible rashes Neuro: Awake, minimally interactive Lines: R chest Permacath dressing c/d/i Laboratory Tests Test 03/11/20 12:09 03/11/20 12:50 03/11/20 18:55 03/12/20 00:36 POC Whole Blood Glucose 132 MG/DL (74-106) H 123 MG/DL (74-106) H 112 MG/DL (74-106) H Prothrombin Time 15.1 SEC (9.30-11.50) H Prothromb Time International Ratio 1.4 (0.9-1.1) H Activated Partial Thromboplast Time 29 SEC (23-33) Test 03/12/20 04:54 03/12/20 05:43 03/12/20 07:18 White Blood Count 14.4 K/UL (4.8-10.8) H Red Blood Count 2.84 M/UL (4.20-5.40) L Hemoglobin 8.4 G/DL (12.0-16.0) L Hematocrit 25.3 % (37.0-47.0) L Mean Corpuscular Volume 89 FL (80-99) Mean Corpuscular Hemoglobin 29.6 PG (27.0-31.0) Mean Corpuscular Hemoglobin Concent 33.3 G/DL (32.0-36.0) Red Cell Distribution Width 15.6 % (11.6-14.8) H Platelet Count 80 K/UL (150-450) L Mean Platelet Volume 11.3 FL (6.5-10.1) H Neutrophils (%) (Auto) % (45.0-75.0) Lymphocytes (%) (Auto) % (20.0-45.0) Monocytes (%) (Auto) % (1.0-10.0) Eosinophils (%) (Auto) % (0.0-3.0) Basophils (%) (Auto) % (0.0-2.0) Differential Total Cells Counted 100 Neutrophils % (Manual) 88 % (45-75) H Lymphocytes % (Manual) 7 % (20-45) L Monocytes % (Manual) 3 % (1-10) Eosinophils % (Manual) 2 % (0-3) Basophils % (Manual) 0 % (0-2) Band Neutrophils 0 % (0-8) Platelet Estimate Decreased L Platelet Morphology Normal Hypochromasia 1+ Sodium Level 135 MMOL/L (136-145) L Potassium Level 3.5 MMOL/L (3.5-5.1) Chloride Level 98 MMOL/L (98-107) Carbon Dioxide Level 21 MMOL/L (21-32) Anion Gap 16 mmol/L (5-15) H Blood Urea Nitrogen 82 mg/dL (7-18) H Creatinine 2.4 MG/DL (0.55-1.30) H Estimat Glomerular Filtration Rate 21.7 mL/min (>60) Glucose Level 99 MG/DL (74-106) Uric Acid 5.7 MG/DL (2.6-7.2) Calcium Level 6.6 MG/DL (8.5-10.1) L Phosphorus Level 5.2 MG/DL (2.5-4.9) H Total Bilirubin 0.3 MG/DL (0.2-1.0) Aspartate Amino Transf (AST/SGOT) 62 U/L (15-37) H Alanine Aminotransferase (ALT/SGPT) 29 U/L (12-78) Alkaline Phosphatase 118 U/L (46-116) H C-Reactive Protein, Quantitative 8.7 mg/dL (0.00-0.90) H Pro-B-Type Natriuretic Peptide > 77309 pg/mL (0-125) H Total Protein 5.0 G/DL (6.4-8.2) L Albumin 1.7 G/DL (3.4-5.0) L Globulin 3.3 g/dL Albumin/Globulin Ratio 0.5 (1.0-2.7) L Random Vancomycin Level 16.0 ug/mL POC Whole Blood Glucose 94 MG/DL (74-106) Miscellaneous Test Pending Current Medications Medications (Trade) Dose Ordered Sig/Penny Route PRN Reason Start Time Stop Time Status Last Admin Dose Admin Acetaminophen (Tylenol) 650 mg Q6H PRN GT Mild Pain (Pain Scale 1-3) 03/02/20 22:30 04/01/20 22:29 03/11/20 15:24 Acetaminophen (Tylenol) 650 mg Q6H PRN GT Temp >100.5 03/03/20 03:00 04/01/20 22:29 Aspirin (ASA) 81 mg DAILY GT 03/07/20 09:00 04/21/20 08:59 03/11/20 09:49 Carvedilol (Coreg) 3.125 mg EVERY 12 HOURS GT 03/11/20 21:00 04/10/20 20:59 03/12/20 08:33 Ceftazidime/ Avibactam 0.94 gm/ Dextrose 110 ml @ 110 mls/hr Q12HR IV 03/06/20 13:00 03/20/20 23:59 03/12/20 08:32 Chlorhexidine Gluconate (Ling-Hex 2%) 1 applic DAILY@2000 TOPIC 03/03/20 20:00 06/01/20 19:59 03/11/20 20:17 Daptomycin 500 mg/ Sodium Chloride 50 ml @ 100 mls/hr Q48H IV 03/10/20 13:00 03/17/20 12:59 03/10/20 13:11 Hydralazine HCl (Apresoline) 25 mg Q6H PRN GT For High Blood Pressure 03/02/20 22:00 05/31/20 21:59 Loperamide HCl (Imodium) 2 mg Q6H PRN GT Diarrhea 03/06/20 12:45 04/05/20 12:44 03/06/20 13:01 Metoclopramide HCl (Reglan) 5 mg Q8HR IVP 03/04/20 11:45 04/03/20 11:44 03/12/20 05:26 Midodrine (Pro-Amatine) 10 mg THREE TIMES A DAY GT 03/04/20 13:00 06/01/20 12:59 03/12/20 08:33 Pantoprazole (Protonix) 40 mg EVERY 12 HOURS IVP 03/04/20 21:00 04/02/20 20:59 03/12/20 08:32 Polyethylene Glycol (Miralax) 17 gm BEDTIME PRN GT Constipation 03/02/20 22:00 04/01/20 21:59 Sevelamer Carbonate (Renvela) 1,600 mg Q6HR NG 03/11/20 12:00 06/08/20 11:59 03/12/20 05:26 Sodium Hypochlorite (Dakin's Quarter Strength) 1 applic DAILY TOPIC 03/04/20 09:00 04/03/20 08:59 03/12/20 08:34 Sucralfate (Carafate) 1 gm FOUR TIMES A DAY GT 03/11/20 09:00 06/09/20 08:59 03/12/20 08:33 Tobramycin Protocol (Tobramycin pharmacy to dose) 1 ea DAILY PRN MISC Per rx protocol 03/06/20 09:15 04/05/20 09:14 Tobramycin Sulfate 80 mg/ Sodium Chloride 55 ml @ 110 mls/hr POSTHD IV 03/06/20 12:00 03/13/20 11:59 03/11/20 16:26 Ro Pack M.D. Mar 12, 2020 08:44
--- NOTE | 2020-03-12 10:00 | NUR ---
NURSE NOTES: Initial assessment done, morning medications administered per order. Pt is tolerating vent setting. Vital signs stable, Will continue to monitor pt. Will continue with plan of care.
--- NOTE | 2020-03-12 11:22 | NUR ---
Dr. Houston did bedside rounds informed him of Ca 6.6 and Albumin 1.7. Will continue to monitor pt.
--- NOTE | 2020-03-12 11:36 | General Progress Note ---
Subjective ROS Limited/Unobtainable: No Allergies: Coded Allergies: No Known Allergies (Unverified , 10/10/17) Objective Last 24 Hour Vital Signs Date Time Temp Pulse Resp B/P (MAP) Pulse Ox O2 Delivery O2 Flow Rate FiO2 03/12/20 08:33 69 128/62 03/12/20 08:00 Mechanical Ventilator 03/12/20 08:00 97.0 69 20 128/62 (84) 99 03/12/20 08:00 40 03/12/20 07:46 73 03/12/20 07:20 69 17 40 03/12/20 04:00 40 03/12/20 04:00 72 03/12/20 04:00 97.3 72 23 134/66 (88) 100 03/12/20 04:00 40 03/12/20 04:00 Mechanical Ventilator 03/12/20 01:00 75 24 40 03/12/20 00:00 98.1 69 17 134/64 (87) 99 03/12/20 00:00 40 03/12/20 00:00 Mechanical Ventilator 03/11/20 23:17 70 03/11/20 20:18 72 135/60 03/11/20 20:00 97.3 72 16 135/60 (85) 100 03/11/20 20:00 40 03/11/20 20:00 Mechanical Ventilator 03/11/20 19:01 68 03/11/20 19:00 67 18 40 03/11/20 16:00 71 03/11/20 16:00 97.9 74 21 150/73 (98) 99 03/11/20 16:00 40 03/11/20 16:00 Mechanical Ventilator 03/11/20 15:04 62 18 40 03/11/20 12:00 97.7 71 21 139/67 (91) 100 03/11/20 11:50 70 Intake and Output 03/11/20 03/12/20 19:00 07:00 Intake Total 870 ml 625 ml Balance 870 ml 625 ml Intake Free Water 200 ml 240 ml Tube Feeding 420 ml 385 ml Blood Product 250 ml # Voids 2 # Bowel Movements 2 3 Laboratory Tests 03/11/20 12:09: POC Whole Blood Glucose 132H 03/11/20 12:50: Prothrombin Time 15.1H, Prothromb Time International Ratio 1.4H, Activated P artial Thromboplast Time 29 03/11/20 18:55: POC Whole Blood Glucose 123H 03/12/20 00:36: POC Whole Blood Glucose 112H 03/12/20 04:54: White Blood Count 14.4H, Red Blood Count 2.84L, Hemoglobin 8.4L, Hematocrit 25.3L, Mean Corpuscular Volume 89, Mean Corpuscular Hemoglobin 29.6, Mean Corpuscular Hemoglobin Concent 33.3, Red Cell Distribution Width 15.6H, Platelet Count 80L, Mean Platelet Volume 11.3H, Neutrophils (%) (Auto) , Lymphocytes (%) (Auto) , Monocytes (%) (Auto) , Eosinophils (%) (Auto) , Basophils (%) (Auto) , Differential Total Cells Counted 100, Neutrophils % (Manual) 88H, Lymphocytes % (Manual) 7L, Monocytes % (Manual) 3, Eosinophils % (Manual) 2, Basophils % (Manual) 0, Band Neutrophils 0, Platelet Estimate DecreasedL, Platelet Morphology Normal, Hypochromasia 1+, Sodium Level 135L, Potassium Level 3.5, Chloride Level 98, Carbon Dioxide Level 21, Anion Gap 16H, Blood Urea Nitrogen 82H, Creatinine 2.4H, Estimat Glomerular Filtration Rate 21.7, Glucose Level 99, Uric Acid 5.7, Calcium Level 6.6L, Phosphorus Level 5.2H, Total Bilirubin 0.3, Aspartate Amino Transf (AST/SGOT) 62H, Alanine Aminotransferase (ALT/SGPT) 29, Alkaline Phosphatase 118H, C-Reactive Protein, Quantitative 8.7H, Pro-B-Type Natriuretic Peptide > 88536H, Total Protein 5.0L, Albumin 1.7L, Globulin 3.3, Albumin/Globulin Ratio 0.5L, Random Vancomycin Level 16.0 03/12/20 05:43: POC Whole Blood Glucose 94 03/12/20 07:18: Miscellaneous Test [Pending] Height (Feet): 5 Height (Inches): 3.00 Weight (Pounds): 128 General Appearance: no apparent distress EENT: normal ENT inspection Neck: supple Cardiovascular: normal rate Respiratory/Chest: decreased breath sounds Abdomen: normal bowel sounds, non tender, soft Extremities: non-tender Assessment/Plan Problem List: (1) Hx of CABG ICD Codes: Z95.1 - Presence of aortocoronary bypass graft SNOMED: 738322828, 268033366 (2) History of tracheostomy ICD Codes: Z98.890 - Other specified postprocedural states SNOMED: 809419393, 068696435 (3) PEG (percutaneous endoscopic gastrostomy) status ICD Codes: Z93.1 - Gastrostomy status SNOMED: 660129845, 770691229 (4) Renal failure ICD Codes: N19 - Unspecified kidney failure SNOMED: 01651376, 364247903 (5) Severe anemia ICD Codes: D64.9 - Anemia, unspecified SNOMED: 717386095 Assessment/Plan: s/p EGD gastric ulcer on ppi fu H&H s/p one unit PRBC 03/11/20 on carafate TF Inder Mccauley MD Mar 12, 2020 11:35
[2020-03-12 12:00] VITALS: BP 112/56
--- NOTE | 2020-03-12 12:00 | NUR ---
NURSE NOTES: Wound care nurse cleaned and dressed all of pt's wounds. Pt tolerated well. VSS. Will continue to closely monitor pt.
--- NOTE | 2020-03-12 12:56 | Nephrology Progress Note ---
Assessment/Plan Problem List: (1) Renal failure (ARF), acute on chronic (2) Anemia (3) Hyponatremia (4) Respiratory failure Assessment (1) JAVIER (acute kidney injury) (2) Renal failure (ARF), acute on chronic (3) Feeding by G-tube (4) Tracheostomy in place (5) Electrolyte imbalance, hyponatremia (6) Anemia, severe (7) Respiratory failure, acute and chronic (8) history of elevated lipase, pancreatitis (9) Elevated troponin I (10) Sepsis Plan March 12: Labs reviewed. Dialyzed yesterday. Due for dialysis tomorrow. Discussed with RN. Patient full code. Continue per current management. March 11: Labs reviewed. Dialyzed this morning. Phosphorus binders dose adjusted. Continue per consultants. Continue to monitor renal parameters. CT: Extensive thoracoabdominal aortic dissection March 10: Labs reviewed. Will order dialysis tomorrow. Phosphorus binders added. Continue per consultants. March 09: No chemistry panel done today. Patient dialyzed yesterday. On dextrose 10% for hypoglycemia. We will check labs tomorrow. Dialysis as needed. March 08: Labs reviewed. Will order dialysis today. Blood sugar low. D10 50 cc an hour started. Continue as is. March 07: Labs reviewed. Dialyzed March 05 and March 06. Continue to monitor renal parameters and hemoglobin. Abnormal electrolytes addressed. IV fluids stopped. Per orders. March 06: Labs reviewed. Dialyzed yesterday. Will reorder dialysis for today. Continue to monitor renal parameters. Hemoglobin 8.4. Patient full code. March 05: Labs reviewed. Patient did not receive dialysis until this morning. Proceed with dialysis. Continue to monitor renal parameters and hemoglobin and hematocrit. March 04: Labs reviewed. Hemoglobin lower. Patient actively bleeding. Was not dialyzed yesterday. Due for GI endoscopy. Continue fluid challenge. Transfusion as needed. Dialysis today. March 03: Labs reviewed. Dialysis ordered. Blood pressure medication all discontinued due to hypotensive state. Albumin bolus given. Continue to monitor renal parameters. Medication list reviewed. Midodrin for low blood pressure ordered Subjective ROS Limited/Unobtainable: Yes Objective Objective Last 24 Hour Vital Signs Date Time Temp Pulse Resp B/P (MAP) Pulse Ox O2 Delivery O2 Flow Rate FiO2 03/12/20 12:00 40 03/12/20 12:00 Mechanical Ventilator 03/12/20 12:00 97.7 66 22 112/56 (74) 98 03/12/20 11:10 66 19 40 03/12/20 08:33 69 128/62 03/12/20 08:00 Mechanical Ventilator 03/12/20 08:00 97.0 69 20 128/62 (84) 99 03/12/20 08:00 40 03/12/20 07:46 73 03/12/20 07:20 69 17 40 03/12/20 04:00 40 03/12/20 04:00 72 03/12/20 04:00 97.3 72 23 134/66 (88) 100 03/12/20 04:00 40 03/12/20 04:00 Mechanical Ventilator 03/12/20 01:00 75 24 40 03/12/20 00:00 98.1 69 17 134/64 (87) 99 03/12/20 00:00 40 03/12/20 00:00 Mechanical Ventilator 03/11/20 23:17 70 03/11/20 20:18 72 135/60 03/11/20 20:00 97.3 72 16 135/60 (85) 100 03/11/20 20:00 40 03/11/20 20:00 Mechanical Ventilator 03/11/20 19:01 68 03/11/20 19:00 67 18 40 03/11/20 16:00 71 03/11/20 16:00 97.9 74 21 150/73 (98) 99 03/11/20 16:00 40 03/11/20 16:00 Mechanical Ventilator 03/11/20 15:04 62 18 40 Intake and Output 03/11/20 03/12/20 19:00 07:00 Intake Total 870 ml 625 ml Balance 870 ml 625 ml Intake Free Water 200 ml 240 ml Tube Feeding 420 ml 385 ml Blood Product 250 ml # Voids 2 # Bowel Movements 2 3 Current Medications Medications (Trade) Dose Ordered Sig/Penny Route PRN Reason Start Time Stop Time Status Last Admin Dose Admin Acetaminophen (Tylenol) 650 mg Q6H PRN GT Mild Pain (Pain Scale 1-3) 03/02/20 22:30 04/01/20 22:29 03/11/20 15:24 Acetaminophen (Tylenol) 650 mg Q6H PRN GT Temp >100.5 03/03/20 03:00 04/01/20 22:29 Aspirin (ASA) 81 mg DAILY GT 1/23/21 09:00 04/21/20 08:59 03/11/20 09:49 Carvedilol (Coreg) 3.125 mg EVERY 12 HOURS GT 03/11/20 21:00 04/10/20 20:59 03/12/20 08:33 Ceftazidime/ Avibactam 0.94 gm/ Dextrose 110 ml @ 110 mls/hr Q12HR IV 03/06/20 13:00 03/20/20 23:59 03/12/20 08:32 Chlorhexidine Gluconate (Ling-Hex 2%) 1 applic DAILY@2000 TOPIC 03/03/20 20:00 06/01/20 19:59 03/11/20 20:17 Daptomycin 500 mg/ Sodium Chloride 50 ml @ 100 mls/hr Q48H IV 03/10/20 13:00 03/17/20 12:59 03/10/20 13:11 Hydralazine HCl (Apresoline) 25 mg Q6H PRN GT For High Blood Pressure 03/02/20 22:00 05/31/20 21:59 Loperamide HCl (Imodium) 2 mg Q6H PRN GT Diarrhea 03/06/20 12:45 04/05/20 12:44 03/06/20 13:01 Metoclopramide HCl (Reglan) 5 mg Q8HR IVP 03/04/20 11:45 04/03/20 11:44 03/12/20 05:26 Midodrine (Pro-Amatine) 10 mg THREE TIMES A DAY GT 03/04/20 13:00 06/01/20 12:59 03/12/20 12:26 Pantoprazole (Protonix) 40 mg EVERY 12 HOURS IVP 03/04/20 21:00 04/02/20 20:59 03/12/20 08:32 Polyethylene Glycol (Miralax) 17 gm BEDTIME PRN GT Constipation 03/02/20 22:00 04/01/20 21:59 Sevelamer Carbonate (Renvela) 1,600 mg Q6HR NG 03/11/20 12:00 06/08/20 11:59 03/12/20 12:23 Sodium Hypochlorite (Dakin's Quarter Strength) 1 applic DAILY TOPIC 03/04/20 09:00 04/03/20 08:59 03/12/20 08:34 Sucralfate (Carafate) 1 gm FOUR TIMES A DAY GT 03/11/20 09:00 06/09/20 08:59 03/12/20 12:26 Tobramycin Protocol (Tobramycin pharmacy to dose) 1 ea DAILY PRN MISC Per rx protocol 03/06/20 09:15 04/05/20 09:14 Tobramycin Sulfate 80 mg/ Sodium Chloride 55 ml @ 110 mls/hr POSTHD IV 03/06/20 12:00 03/13/20 11:59 03/11/20 16:26 Laboratory Tests 03/11/20 18:55: POC Whole Blood Glucose 123H 03/12/20 00:36: POC Whole Blood Glucose 112H 03/12/20 04:54: White Blood Count 14.4H, Red Blood Count 2.84L, Hemoglobin 8.4L, Hematocrit 25.3L, Mean Corpuscular Volume 89, Mean Corpuscular Hemoglobin 29.6, Mean Corpuscular Hemoglobin Concent 33.3, Red Cell Distribution Width 15.6H, Platelet Count 80L, Mean Platelet Volume 11.3H, Neutrophils (%) (Auto) , Lymphocytes (%) (Auto) , Monocytes (%) (Auto) , Eosinophils (%) (Auto) , Basophils (%) (Auto) , Differential Total Cells Counted 100, Neutrophils % (Manual) 88H, Lymphocytes % (Manual) 7L, Monocytes % (Manual) 3, Eosinophils % (Manual) 2, Basophils % (Manual) 0, Band Neutrophils 0, Platelet Estimate DecreasedL, Platelet Morphology Normal, Hypochromasia 1+, Sodium Level 135L, Potassium Level 3.5, Chloride Level 98, Carbon Dioxide Level 21, Anion Gap 16H, Blood Urea Nitrogen 82H, Creatinine 2.4H, Estimat Glomerular Filtration Rate 21.7, Glucose Level 99, Uric Acid 5.7, Calcium Level 6.6L, Phosphorus Level 5.2H, Total Bilirubin 0.3, Aspartate Amino Transf (AST/SGOT) 62H, Alanine Aminotransferase (ALT/SGPT) 29, Alkaline Phosphatase 118H, C-Reactive Protein, Quantitative 8.7H, Pro-B-Type Natriuretic Peptide > 06516O, Total Protein 5.0L, Albumin 1.7L, Globulin 3.3, Albumin/Globulin Ratio 0.5L, Random Vancomycin Level 16.0 03/12/20 05:43: POC Whole Blood Glucose 94 03/12/20 07:18: Miscellaneous Test [Pending] 03/12/20 12:36: POC Whole Blood Glucose 83 Height (Feet): 5 Height (Inches): 3.00 Weight (Pounds): 128 General Appearance: no apparent distress Cardiovascular: normal rate Respiratory/Chest: decreased breath sounds Abdomen: distended Johnny Houston MD Mar 12, 2020 12:56
[2020-03-12] MEDS: DAPTOMYCIN 500 MG IV SCH (13:19)
[2020-03-12] MEDS: SODIUM CHLORIDE IV SCH (13:19)
--- NOTE | 2020-03-12 13:29 | Pulmonology Progress Note ---
Subjective ROS Limited/Unobtainable: Yes Interval Events: none major reported per nursing HEENT: Repors: no symptoms Respiratory: Reports: no symptoms Cardiovascular: Reports: no symptoms Gastrointestinal/Abdominal: Reports: diarrhea Allergies: Coded Allergies: No Known Allergies (Unverified , 10/10/17) All Systems: reviewed and negative except above Objective Last 24 Hour Vital Signs Date Time Temp Pulse Resp B/P (MAP) Pulse Ox O2 Delivery O2 Flow Rate FiO2 03/12/20 12:00 40 03/12/20 12:00 Mechanical Ventilator 03/12/20 12:00 97.7 66 22 112/56 (74) 98 03/12/20 11:34 73 03/12/20 11:10 66 19 40 03/12/20 08:33 69 128/62 03/12/20 08:00 Mechanical Ventilator 03/12/20 08:00 97.0 69 20 128/62 (84) 99 03/12/20 08:00 40 03/12/20 07:46 73 03/12/20 07:20 69 17 40 03/12/20 04:00 40 03/12/20 04:00 72 03/12/20 04:00 97.3 72 23 134/66 (88) 100 03/12/20 04:00 40 03/12/20 04:00 Mechanical Ventilator 03/12/20 01:00 75 24 40 03/12/20 00:00 98.1 69 17 134/64 (87) 99 03/12/20 00:00 40 03/12/20 00:00 Mechanical Ventilator 03/11/20 23:17 70 03/11/20 20:18 72 135/60 03/11/20 20:00 97.3 72 16 135/60 (85) 100 03/11/20 20:00 40 03/11/20 20:00 Mechanical Ventilator 03/11/20 19:01 68 03/11/20 19:00 67 18 40 03/11/20 16:00 71 03/11/20 16:00 97.9 74 21 150/73 (98) 99 03/11/20 16:00 40 03/11/20 16:00 Mechanical Ventilator 03/11/20 15:04 62 18 40 Intake and Output 03/11/20 03/12/20 19:00 07:00 Intake Total 870 ml 625 ml Balance 870 ml 625 ml Intake Free Water 200 ml 240 ml Tube Feeding 420 ml 385 ml Blood Product 250 ml # Voids 2 # Bowel Movements 2 3 General Appearance: no acute distress HEENT: atraumatic Respiratory: lungs clear Cardiovascular: regular rhythm, bradycardia Extremities: other - edema bilateral Laboratory Tests 03/11/20 18:55: POC Whole Blood Glucose 123H 03/12/20 00:36: POC Whole Blood Glucose 112H 03/12/20 04:54: White Blood Count 14.4H, Red Blood Count 2.84L, Hemoglobin 8.4L, Hematocrit 25.3L, Mean Corpuscular Volume 89, Mean Corpuscular Hemoglobin 29.6, Mean Corpuscular Hemoglobin Concent 33.3, Red Cell Distribution Width 15.6H, Platelet Count 80L, Mean Platelet Volume 11.3H, Neutrophils (%) (Auto) , Lymphocytes (%) (Auto) , Monocytes (%) (Auto) , Eosinophils (%) (Auto) , Basophils (%) (Auto) , Differential Total Cells Counted 100, Neutrophils % (Manual) 88H, Lymphocytes % (Manual) 7L, Monocytes % (Manual) 3, Eosinophils % (Manual) 2, Basophils % ( Manual) 0, Band Neutrophils 0, Platelet Estimate DecreasedL, Platelet Morphology Normal, Hypochromasia 1+, Sodium Level 135L, Potassium Level 3.5, Chloride Level 98, Carbon Dioxide Level 21, Anion Gap 16H, Blood Urea Nitrogen 82H, Creatinine 2.4H, Estimat Glomerular Filtration Rate 21.7, Glucose Level 99, Uric Acid 5.7, Calcium Level 6.6L, Phosphorus Level 5.2H, Total Bilirubin 0.3, Aspartate Amino Transf (AST/SGOT) 62H, Alanine Aminotransferase (ALT/SGPT) 29, Alkaline Phosphatase 118H, C-Reactive Protein, Quantitative 8.7H, Pro-B-Type Natriuretic Peptide > 34359E, Total Protein 5.0L, Albumin 1.7L, Globulin 3.3, Albumin/Globulin Ratio 0.5L, Random Vancomycin Level 16.0 03/12/20 05:43: POC Whole Blood Glucose 94 03/12/20 07:18: Miscellaneous Test [Pending] 03/12/20 12:36: POC Whole Blood Glucose 83 Current Medications Medications (Trade) Dose Ordered Sig/Penny Route PRN Reason Start Time Stop Time Status Last Admin Dose Admin Acetaminophen (Tylenol) 650 mg Q6H PRN GT Mild Pain (Pain Scale 1-3) 03/02/20 22:30 04/01/20 22:29 03/11/20 15:24 Acetaminophen (Tylenol) 650 mg Q6H PRN GT Temp >100.5 03/03/20 03:00 04/01/20 22:29 Aspirin (ASA) 81 mg DAILY GT 03/07/20 09:00 04/21/20 08:59 03/11/20 09:49 Carvedilol (Coreg) 3.125 mg EVERY 12 HOURS GT 03/11/20 21:00 04/10/20 20:59 03/12/20 08:33 Ceftazidime/ Avibactam 0.94 gm/ Dextrose 110 ml @ 110 mls/hr Q12HR IV 03/06/20 13:00 03/20/20 23:59 03/12/20 08:32 Chlorhexidine Gluconate (Ling-Hex 2%) 1 applic DAILY@2000 TOPIC 03/03/20 20:00 06/01/20 19:59 03/11/20 20:17 Daptomycin 500 mg/ Sodium Chloride 50 ml @ 100 mls/hr Q48H IV 03/10/20 13:00 03/17/20 12:59 03/12/20 13:19 Hydralazine HCl (Apresoline) 25 mg Q6H PRN GT For High Blood Pressure 03/02/20 22:00 05/31/20 21:59 Loperamide HCl (Imodium) 2 mg Q6H PRN GT Diarrhea 03/06/20 12:45 04/05/20 12:44 03/06/20 13:01 Metoclopramide HCl (Reglan) 5 mg Q8HR IVP 03/04/20 11:45 04/03/20 11:44 03/12/20 13:19 Midodrine (Pro-Amatine) 10 mg THREE TIMES A DAY GT 03/04/20 13:00 06/01/20 12:59 03/12/20 12:26 Pantoprazole (Protonix) 40 mg EVERY 12 HOURS IVP 03/04/20 21:00 04/02/20 20:59 03/12/20 08:32 Polyethylene Glycol (Miralax) 17 gm BEDTIME PRN GT Constipation 03/02/20 22:00 04/01/20 21:59 Sevelamer Carbonate (Renvela) 1,600 mg Q6HR NG 03/11/20 12:00 06/08/20 11:59 03/12/20 12:23 Sodium Hypochlorite (Dakin's Quarter Strength) 1 applic DAILY TOPIC 03/04/20 09:00 04/03/20 08:59 03/12/20 08:34 Sucralfate (Carafate) 1 gm FOUR TIMES A DAY GT 03/11/20 09:00 06/09/20 08:59 03/12/20 12:26 Tobramycin Protocol (Tobramycin pharmacy to dose) 1 ea DAILY PRN MISC Per rx protocol 03/06/20 09:15 04/05/20 09:14 Tobramycin Sulfate 80 mg/ Sodium Chloride 55 ml @ 110 mls/hr POSTHD IV 03/06/20 12:00 03/13/20 11:59 03/11/20 16:26 Assessment/Plan Assessment/Plan 1. Chronic respiratory failure. - CT chest/abd/pelv: improving pleural effusion - will order thoracentesis 2. Mechanical ventilation. - current setting at AC 14, Vt 500, FiO2 40%, PEEP 5 saturating at 97-98% - continue current setting - suction secretions as needed 3. Chronic tracheostomy. 4. Chronic G-tube. 5. Anemia. - s/p transfusion - stool OB positive - off anticoags 6. Renal failure. 7. Leukocytosis and sepsis. 8. Sepsis UTI 9. Gram positive cocci bacteremia 10. COVID-19 negative 11. Diarrhea - C. diff neg 12. Hypoglycemia - resolved 13. Bradycardia - no urgent indication for pacemaker per cardio 14. Gastric ulcer - on PPI - GI following 15. Pleural effusion - thoracentesis per ID recs; NOT performed given US chest finding of too small amount of pleural fluid for safe thoracentesis 16. thoracic aortic aneurysm - noted on CT imaging - pt needs emergent transfer out to [facility] for CT surgery evaluation, primary MD aware We will follow carefully. ID and Hematology following. The care for this patient was discussed with my supervising physician Time spent for this case was approximately 31 minutes Cruz Wilson Mar 12, 2020 13:29
--- NOTE | 2020-03-12 13:34 | NUR ---
CASE MANAGEMENT:REVIEW 03/12/20 SI: SEPSIS. AC/CHR RENAL FAILURE. TRACH.VENT.GT EXTENSIVE THORACOABDOMINAL AORTIC DISSECTION 97.7 66 22 112/56 98% ON VENT SUPPORT W/40% FIO2 WBC+14.4 H/H-8.4/25.3 PLT-80 BUN+82 CR+2.4 CA-6.6 IS: IV DAPTOMYCIN Q48HRS IV CEFTAZIDIME Q12 IV TOBRAMYCIN POST HD IVF@50/HR ASA GT QD IV PROTONIX Q12 IV REGLAN Q8HR COREG GT Q12 CARAFATE GT QID : STEP DOWN UNIT [facility] NEEDS TO BE TRANSFERRED TO HIGHER LEVEL OF CARE URGENTLY DUE TO EXTENSIVE AORTIC THORACIC AND ABDOMINAL DISSECTION
--- NOTE | 2020-03-12 13:53 | NUR ---
NURSE NOTES:WOUND CARE FOLLOW-UP NOTES:Full Thickness Sacral Pressure Injury is malodorous.(L)11.5cm x (W)12cm x (D)1.1cm,undermining clockwise 7-5 by 3.2cm @2o'clock. Base of wound is 75% necrotic with detached necrotic cap along borders. Loose non-viable tissue removed by . Small amt brown exudate noted. Periwound is Non-Blanchable erythema without induration or elevation in skin temp. Incontinence associated dermatitis medial aspects of both upper thighs ;erythema with scattered satellite lesions noted. Moisture Barrier Paste applied to affected areas. Small necrotic lesion noted to medial upper R thigh. NO erythema or changes in skin temp to surrounding area of lesion. Gt site is red and excoriated. Small amt formula noted to be leaking from Ostomy. Moisture Barrier Paste applied around GT and covered with Optifoam drsg. R and L heels are boggy but each heel easily blanches. Wound Care orders for Dakin's continued as ordered. All wound prevention protocols continued as care-planned.
--- NOTE | 2020-03-12 14:00 | NUR ---
NURSE NOTES: Bed bath given, linens and gown changed. Pt turned and repositioned. Oral care done. Oral and trach suctioning done. Tolerated well. VSS. Tolerated vent setting with O2 98-100% Will continue to closely monitor pt.
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
--- NOTE | 2020-03-12 15:59 | NUR ---
INSURANCE CLINCALS AND REVIEW FAXED TO [facility] T: [phone] F: [phone]
[2020-03-12 16:00] VITALS: BP 123/63
--- NOTE | 2020-03-12 18:01 | General Progress Note ---
Subjective Constitutional: Reports: no symptoms HEENT: Reports: no symptoms Cardiovascular: Reports: no symptoms Respiratory: Reports: no symptoms Gastrointestinal/Abdominal: Reports: no symptoms Genitourinary: Reports: no symptoms Neurologic/Psychiatric: Reports: no symptoms Endocrine: Reports: no symptoms Hematologic/Lymphatic: Reports: no symptoms Allergies: Coded Allergies: No Known Allergies (Unverified , 10/10/17) Objective Last 24 Hour Vital Signs Date Time Temp Pulse Resp B/P (MAP) Pulse Ox O2 Delivery O2 Flow Rate FiO2 03/12/20 16:00 97.2 68 22 123/63 (83) 100 03/12/20 16:00 62 03/12/20 16:00 Mechanical Ventilator 03/12/20 16:00 40 03/12/20 14:55 68 14 40 03/12/20 12:00 40 03/12/20 12:00 Mechanical Ventilator 03/12/20 12:00 97.7 66 22 112/56 (74) 98 03/12/20 11:34 73 03/12/20 11:10 66 19 40 03/12/20 08:33 69 128/62 03/12/20 08:00 Mechanical Ventilator 03/12/20 08:00 97.0 69 20 128/62 (84) 99 03/12/20 08:00 40 03/12/20 07:46 73 03/12/20 07:20 69 17 40 03/12/20 04:00 40 03/12/20 04:00 72 03/12/20 04:00 97.3 72 23 134/66 (88) 100 03/12/20 04:00 40 03/12/20 04:00 Mechanical Ventilator 03/12/20 01:00 75 24 40 03/12/20 00:00 98.1 69 17 134/64 (87) 99 03/12/20 00:00 40 03/12/20 00:00 Mechanical Ventilator 03/11/20 23:17 70 03/11/20 20:18 72 135/60 03/11/20 20:00 97.3 72 16 135/60 (85) 100 03/11/20 20:00 40 03/11/20 20:00 Mechanical Ventilator 03/11/20 19:01 68 03/11/20 19:00 67 18 40 Intake and Output 03/11/20 03/12/20 19:00 07:00 Intake Total 870 ml 660 ml Balance 870 ml 660 ml Intake Free Water 200 ml 240 ml Tube Feeding 420 ml 420 ml Blood Product 250 ml # Voids 2 # Bowel Movements 2 3 Laboratory Tests 03/11/20 18:55: POC Whole Blood Glucose 123H 03/12/20 00:36: POC Whole Blood Glucose 112H 03/12/20 04:54: White Blood Count 14.4H, Red Blood Count 2.84L, Hemoglobin 8.4L, Hematocrit 25.3L, Mean Corpuscular Volume 89, Mean Corpuscular Hemoglobin 29.6, Mean Corpuscular Hemoglobin Concent 33.3, Red Cell Distribution Width 15.6H, Platelet Count 80L, Mean Platelet Volume 11.3H, Neutrophils (%) (Auto) , Lymphocytes (%) (Auto) , Monocytes (%) (Auto) , Eosinophils (%) (Auto) , Basophils (%) (Auto) , Differential Total Cells Counted 100, Neutrophils % (Manual) 88H, Lymphocytes % (Manual) 7L, Monocytes % (Manual) 3, Eosinophils % (Manual) 2, Basophils % (Manual) 0, Band Neutrophils 0, Platelet Estimate DecreasedL, Platelet Morphology Normal, Hypochromasia 1+, Sodium Level 135L, Potassium Level 3.5, Chloride Level 98, Carbon Dioxide Level 21, Anion Gap 16H, Blood Urea Nitrogen 82H, Creatinine 2.4H, Estimat Glomerular Filtration Rate 21.7, Glucose Level 99, Uric Acid 5.7, Calcium Level 6.6L, Phosphorus Level 5.2H, Total Bilirubin 0.3, Aspartate Amino Transf (AST/SGOT) 62H, Alanine Aminotransferase (ALT/SGPT) 29, Alkaline Phosphatase 118H, C-Reactive Protein, Quantitative 8.7H, Pro-B-Type Natriuretic Peptide > 58262F, Total Protein 5.0L, Albumin 1.7L, Globulin 3.3, Albumin/Globulin Ratio 0.5L, Random Vancomycin Level 16.0 03/12/20 05:43: POC Whole Blood Glucose 94 03/12/20 07:18: Miscellaneous Test [Pending] 03/12/20 12:36: POC Whole Blood Glucose 83 Height (Feet): 5 Height (Inches): 3.00 Weight (Pounds): 128 General Appearance: WD/WN, no apparent distress, alert, lethargic EENT: normal ENT inspection Neck: supple Cardiovascular: normal rate, regular rhythm, no gallop/murmur, no JVD Respiratory/Chest: no respiratory distress, no accessory muscle use, decreased breath sounds, rhonchi - left Abdomen: normal bowel sounds, non tender, soft, no organomegaly, no mass Extremities: non-tender Edema: 2+ Leg (L), 2+ Leg (R) Neurologic: alert, responsive Assessment/Plan Status Narrative Patient is awake alert afebrile hemodynamically stable without bradycardia with eye contact normal attention span but no attempt to communicate a physical exam is unchanged she still have 2+ edema in lower extremities yesterday dialysis was uneventful currently on daptomycin tobramycin and IV case C dropped today to 14 and it appears that this formulation resolved with difficult problem is poor hemoglobin gross and it seemed the daptomycin was the drug that made the difference work-up continuing to transfer the patient to a higher level of care because of aortic dissection is now issue remain open Basil laboratory tests will be done in a.Lucas Churchill MD, MD Mar 12, 2020 18:01
--- NOTE | 2020-03-12 19:10 | NUR ---
NURSE HAND-OFF REPORT: Important Events on Shift:N Patient Status: Full Code Diet: Nepro 35cc/hr Pending Orders: N Pending Results/Labs:N Pending notification:N Latest Vital Signs: Temperature 97.2 , Pulse 71 , B/P 123 /63 , Respiratory Rate 18 , O2 SAT 100 , Mechanical Ventilator, O2 Flow Rate . Vital Sign Comment: stable EKG Rhythm: Sinus Rhythm Rhythm change?: N MD Notified?: N -Dr Екатерина HATFIELD Response: No New Orders Received Latest Stout Fall Score: 50 Fall Risk: High Risk Safety Measures: Call light Within Reach, Bed Alarm Zone 1, Side Rails Side Rails x2, Bed position Low and Locked. Fall Precautions: Yellow Socks Report given to ERASMO Malhotra. Addendum: 03/12/20 at 1920 by Shaniqua Krishnan RN RN Report given to Brandon Irving RN
--- NOTE | 2020-03-12 19:54 | NUR ---
NURSE NOTES: Received patient report from ERASMO Puga. Patient is AO x1. Patient was asleep but easily aroused. Patient shows no signs of distress or pain at the time. Patient is on Trach vent Shiley 7, AC 14, TV 500, FIO2 40, PEEP 5. There are no signs of respiratory distress at the time. Patient is on G tube feeding running Nepro at 35 cc/hr. IV sites are patent and flushed. There are no signs of erythema, infiltration, or bleeding. Bed is in the lowest position, call light is within reach, side rails up x3. Will continue plan of care.
[2020-03-12 20:00] VITALS: BP 130/64
[2020-03-12] MEDS: Dyna-Hex 2% Top Sol 2oz TOPIC SCH (20:21)
[2020-03-12] MEDS ORDERED: NS 275ml ONE (22:44)
--- NOTE | 2020-03-12 23:59 | Cardiology Progress Note ---
Subjective DATE OF SERVICE: Mar 12, 2020 Heart rates mostly 60-70's now. BP parameters stable. CT scan now reveals two areas of aortic dissection. Dialysis per renal Objective Last 24 Hour Vital Signs Date Time Temp Pulse Resp B/P (MAP) Pulse Ox O2 Delivery O2 Flow Rate FiO2 03/12/20 23:07 73 19 40 03/12/20 20:21 71 130/64 03/12/20 20:00 73 03/12/20 20:00 40 03/12/20 20:00 Mechanical Ventilator 03/12/20 20:00 97.3 71 25 130/64 (86) 100 03/12/20 19:11 71 18 40 03/12/20 16:00 97.2 68 22 123/63 (83) 100 03/12/20 16:00 62 03/12/20 16:00 Mechanical Ventilator 03/12/20 16:00 40 03/12/20 14:55 68 14 40 03/12/20 12:00 40 03/12/20 12:00 Mechanical Ventilator 03/12/20 12:00 97.7 66 22 112/56 (74) 98 03/12/20 11:34 73 03/12/20 11:10 66 19 40 03/12/20 08:33 69 128/62 03/12/20 08:00 Mechanical Ventilator 03/12/20 08:00 97.0 69 20 128/62 (84) 99 03/12/20 08:00 40 03/12/20 07:46 73 03/12/20 07:20 69 17 40 03/12/20 04:00 40 03/12/20 04:00 72 03/12/20 04:00 97.3 72 23 134/66 (88) 100 03/12/20 04:00 40 03/12/20 04:00 Mechanical Ventilator 03/12/20 01:00 75 24 40 03/12/20 00:00 98.1 69 17 134/64 (87) 99 03/12/20 00:00 40 03/12/20 00:00 Mechanical Ventilator HEENT: Thin Trach secretions RHYTHM: NSR, SB LUNGS: bilateral rhonchi - few, trach site clean CARDIAC: normal rate, regular rhythm, normal S1 and S2 ABDOMEN: normal bowel sounds, non tender, soft, G-Tube intact EXTREMITIES: normal range of motion, non-tender, normal inspection Laboratory Tests Test 03/12/20 00:36 03/12/20 04:54 03/12/20 05:43 03/12/20 07:18 POC Whole Blood Glucose 112 MG/DL (74-106) H 94 MG/DL (74-106) White Blood Count 14.4 K/UL (4.8-10.8) H Red Blood Count 2.84 M/UL (4.20-5.40) L Hemoglobin 8.4 G/DL (12.0-16.0) L Hematocrit 25.3 % (37.0-47.0) L Mean Corpuscular Volume 89 FL (80-99) Mean Corpuscular Hemoglobin 29.6 PG (27.0-31.0) Mean Corpuscular Hemoglobin Concent 33.3 G/DL (32.0-36.0) Red Cell Distribution Width 15.6 % (11.6-14.8) H Platelet Count 80 K/UL (150-450) L Mean Platelet Volume 11.3 FL (6.5-10.1) H Neutrophils (%) (Auto) % (45.0-75.0) Lymphocytes (%) (Auto) % (20.0-45.0) Monocytes (%) (Auto) % (1.0-10.0) Eosinophils (%) (Auto) % (0.0-3.0) Basophils (%) (Auto) % (0.0-2.0) Differential Total Cells Counted 100 Neutrophils % (Manual) 88 % (45-75) H Lymphocytes % (Manual) 7 % (20-45) L Monocytes % (Manual) 3 % (1-10) Eosinophils % (Manual) 2 % (0-3) Basophils % (Manual) 0 % (0-2) Band Neutrophils 0 % (0-8) Platelet Estimate Decreased L Platelet Morphology Normal Hypochromasia 1+ Sodium Level 135 MMOL/L (136-145) L Potassium Level 3.5 MMOL/L (3.5-5.1) Chloride Level 98 MMOL/L (98-107) Carbon Dioxide Level 21 MMOL/L (21-32) Anion Gap 16 mmol/L (5-15) H Blood Urea Nitrogen 82 mg/dL (7-18) H Creatinine 2.4 MG/DL (0.55-1.30) H Estimat Glomerular Filtration Rate 21.7 mL/min (>60) Glucose Level 99 MG/DL (74-106) Uric Acid 5.7 MG/DL (2.6-7.2) Calcium Level 6.6 MG/DL (8.5-10.1) L Phosphorus Level 5.2 MG/DL (2.5-4.9) H Total Bilirubin 0.3 MG/DL (0.2-1.0) Aspartate Amino Transf (AST/SGOT) 62 U/L (15-37) H Alanine Aminotransferase (ALT/SGPT) 29 U/L (12-78) Alkaline Phosphatase 118 U/L (46-116) H C-Reactive Protein, Quantitative 8.7 mg/dL (0.00-0.90) H Pro-B-Type Natriuretic Peptide > 35160 pg/mL (0-125) H Total Protein 5.0 G/DL (6.4-8.2) L Albumin 1.7 G/DL (3.4-5.0) L Globulin 3.3 g/dL Albumin/Globulin Ratio 0.5 (1.0-2.7) L Random Vancomycin Level 16.0 ug/mL Miscellaneous Test Pending Test 03/12/20 12:36 03/12/20 18:05 03/12/20 23:53 POC Whole Blood Glucose 83 MG/DL (74-106) 86 MG/DL (74-106) 88 MG/DL (74-106) Assessment/Plan Assessment/Plan Aortic dissections Sepsis with recovered shock Sinus node disease with bradycardia Hx pacemaker explant Ischemic cardiomyopathy - hx CABG? 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
[2020-03-13] VITALS: BP 126/59
--- NOTE | 2020-03-13 02:11 | NUR ---
NURSE NOTES: Mouth care done on patient. Patient constantly suctioned due to secretions coming out. Patient shows no signs of distress or pain. Will continue to monitor.
[2020-03-13 04:00] VITALS: BP 135/79
[2020-03-13] MEDS: Metoclopramide 10mg/2ml Inj IVP SCH ×3 (05:53→21:43)
[2020-03-13] MEDS: Renvela 800mg Pkt NG SCH ×4 (05:53→23:42)
[2020-03-13 07:00] LABS: HEMATOCRIT 23.9 % (37.0-47.0); HEMOGLOBIN 8.2 G/DL (12.0-16.0); MEAN CORPUSCULAR VOLUME 88 FL (80-99); PLATELET COUNT 68 K/UL (150-450); RED BLOOD COUNT 2.72 M/UL (4.20-5.40); RED CELL DISTRIBUTION WIDTH 14.9 % (11.6-14.8); WHITE BLOOD COUNT 13.4 K/UL (4.8-10.8)
--- NOTE | 2020-03-13 07:06 | NUR ---
NURSE HAND-OFF REPORT: Important Events on Shift:[Mouth care and suctioning done. No bowel movement] Patient Status: [Full code] Diet: [Nepro @ 35] Pending Orders: [] Pending Results/Labs:[] Pending MD notification:[] Latest Vital Signs: Temperature 97.6 , Pulse 71 , B/P 135 /79 , Respiratory Rate 22 , O2 SAT 100 , Mechanical Ventilator, O2 Flow Rate . Vital Sign Comment: [] EKG Rhythm: Sinus Rhythm Rhythm change?: N Notified?: N -Dr Екатерина HATFIELD Response: No New Orders Received Latest Chavarria Fall Score: 50 Fall Risk: High Risk Safety Measures: Call light Within Reach, Bed Alarm Zone 1, Side Rails Side Rails x2, Bed position Low and Locked. Fall Precautions: Yellow Socks Report given to [ERASMO Mcgovern].
--- NOTE | 2020-03-13 07:10 | NUR ---
NURSE NOTES: Received report from ERASMO Irving. Pt is lying in bed, not in acute distress, no facial grimacing noted. Tolerating vent setting of AC 14, TV 500, FiO2 40%, PEEP 5 with O2 sat 98%. Perma catheter in right upper chest intact and patent, R forearm 20G, and L forearm 22G intact and patent. G-tube is intact and patent running Nepro @ 35cc/hr. Skin issues noted and dressing intact. Latest labs, medication and MD orders reviewed. Bed is locked and in lowest position, bed alarm on, call light is within reach. Will continue to monitor pt. Will continue with the plan of care.
[2020-03-13 07:25] LABS: PHOSPHORUS 5.7 MG/DL (2.5-4.9)
--- NOTE | 2020-03-13 07:25 | Hematology/Onc Progress Note ---
Assessment/Plan Assessment/Plan # Leukocytosis, now with likely bacteremia, as per ID care --> Cxr: : Large left abiola consolidation/effusion --> wbc 30-->40-->27->30->29-->35->32-->28-->21 --> ABX angelo/vanc-->tobra/edson/vanc --> smear reviewed --> ID recs are noted # Elevated tumor markers, cea and ca 19.9 --> reviewed prior 01/27/20 cat scan a/p --> no masses noted, hold off further extensive w/u # Anemia of chronic disease due to underlying chronic medical issues, multifac torial --> Anemia workup has been reviewed, cw acd --> No evidence of hemolysis is noted, peripheral smear has been reviewed. --> Hgb goal >7. Transfuse prn. --> Epogen required in prior --> Medications have been reviewed --> low threshold for gi evaluation in case has occult + --> hgb 1.9-->5-->7.1-->8.8-->8.1->7.5-> 8.2 --> 1 unit prbc1/, 2 units 01/15, 03/02 --> gi eval as needed # Coagulopathy with inr 1.5 --> consider vit k/ffp as needed preprocedure --> labs noted # Thrombocytopenia likely reactive v medication indcued --> plt 200-->129->91 --> r/o dic # Aortic dissection as seen on Ct ==> when stable, consider transfer hloc # JAVIER initially >2 --> on ivfs --> per renal # Elevated d-dimer, likely infection related --> venous duplex prior neg --> in prior neg # Dysphagia s/p peg --> as per gi # Thoracic aortic dissection --> s/p repair early 2017 # Chronic Resp failure -> s/p trach/vent # Psychiatric history on ativan/haldol # [place] resident # Dvt ppx --> scds The timing of this note does not necessarily reflect the time of the patient was seen. Greatly appreciate consultation. Subjective HEENT: Denies: no symptoms, eye pain, blurred vision, tearing, double vision, ear pain, ear discharge, nose pain, nose congestion, throat pain, throat swelling, mouth pain, mouth swelling, other Cardiovascular: Denies: no symptoms, chest pain, edema, irregular heart rate, lightheadedness, palpitations, syncope, other Gastrointestinal/Abdominal: Denies: no symptoms, abdomen distended, abdominal pain, black stools, tarry stools, blood in stool, constipated, diarrhea, difficulty swallowing, nausea, poor appetite, poor fluid intake, rectal bleeding, vomiting, other Genitourinary: Denies: no symptoms, burning, discharge, frequency, flank pain, hematuria, incontinence, pain, urgency, other Neurologic/Psychiatric: Denies: no symptoms, anxiety, depressed, emotional problems, headache, numbness, paresthesia, pre-existing deficit, seizure, tingling, tremors, weakness, other Endocrine: Denies: no symptoms, excessive sweating, flushing, intolerance to cold, intolerance to heat, increased hunger, increased thirst, increased urine, unexplained weight gain, unexplained weight loss, other Hematologic/Lymphatic: Denies: no symptoms, anemia, easy bleeding, easy bruising, adenopathy, other Allergies: Coded Allergies: No Known Allergies (Unverified , 10/10/17) Subjective 03/04 for 1 unit transfusion this am as hgb remains low, wbc better 03/05 egd was done did show large nonbleeding gastric ulcer, high tumor markers 03/06 nv, with davis overnight, bp remains stable, with occult + stool, roman Rn 03/09 nv, remains stable, on vanc/tobra/edosn, meds reviewed, no bleeding 03/10 nv, on vent, no bleeding, receiving abx, no night sweats 03/11 nv, roman surgeon and pcp, with aortic dissection to transfer hloc when stable 03/12 nv, labs reviewed, wbc 21, hgb 7.5, otherwise is comfortable 03/13 nv, labs noted, no bleeding, wbc 13, hgb improved, meds reviewed 03/14: plan for HLOC for CT Sx Objective Objective Current Medications Medications (Trade) Dose Ordered Sig/Penny Route PRN Reason Start Time Stop Time Status Last Admin Dose Admin Acetaminophen (Tylenol) 650 mg Q6H PRN GT Mild Pain (Pain Scale 1-3) 03/02/20 22:30 04/01/20 22:29 03/11/20 15:24 Acetaminophen (Tylenol) 650 mg Q6H PRN GT Temp >100.5 03/03/20 03:00 04/01/20 22:29 Aspirin (ASA) 81 mg DAILY GT 03/07/20 09:00 04/21/20 08:59 03/11/20 09:49 Carvedilol (Coreg) 3.125 mg EVERY 12 HOURS GT 03/11/20 21:00 04/10/20 20:59 03/12/20 20:21 Ceftazidime/ Avibactam 0.94 gm/ Dextrose 110 ml @ 110 mls/hr Q12HR IV 03/06/20 13:00 03/20/20 23:59 03/12/20 21:19 Chlorhexidine Gluconate (Ling-Hex 2%) 1 applic DAILY@2000 TOPIC 03/03/20 20:00 06/01/20 19:59 03/12/20 20:21 Daptomycin 500 mg/ Sodium Chloride 50 ml @ 100 mls/hr Q48H IV 03/10/20 13:00 03/17/20 12:59 03/12/20 13:19 Hydralazine HCl (Apresoline) 25 mg Q6H PRN GT For High Blood Pressure 03/02/20 22:00 05/31/20 21:59 Loperamide HCl (Imodium) 2 mg Q6H PRN GT Diarrhea 03/06/20 12:45 04/05/20 12:44 03/06/20 13:01 Metoclopramide HCl (Reglan) 5 mg Q8HR IVP 03/04/20 11:45 04/03/20 11:44 03/13/20 05:53 Midodrine (Pro-Amatine) 10 mg THREE TIMES A DAY GT 03/04/20 13:00 06/01/20 12:59 03/12/20 17:03 Pantoprazole (Protonix) 40 mg EVERY 12 HOURS IVP 03/04/20 21:00 04/02/20 20:59 03/12/20 20:21 Polyethylene Glycol (Miralax) 17 gm BEDTIME PRN GT Constipation 03/02/20 22:00 04/01/20 21:59 Sevelamer Carbonate (Renvela) 1,600 mg Q6HR NG 03/11/20 12:00 06/08/20 11:59 03/13/20 05:53 Sodium Hypochlorite (Dakin's Quarter Strength) 1 applic DAILY TOPIC 03/04/20 09:00 04/03/20 08:59 03/12/20 08:34 Sucralfate (Carafate) 1 gm FOUR TIMES A DAY GT 03/11/20 09:00 06/09/20 08:59 03/12/20 20:21 Tobramycin Protocol (Tobramycin pharmacy to dose) 1 ea DAILY PRN MISC Per rx protocol 03/06/20 09:15 04/05/20 09:14 Tobramycin Sulfate 80 mg/ Sodium Chloride 55 ml @ 110 mls/hr POSTHD IV 03/06/20 12:00 03/13/20 11:59 03/11/20 16:26 Last 24 Hour Vital Signs Date Time Temp Pulse Resp B/P (MAP) Pulse Ox O2 Delivery O2 Flow Rate FiO2 03/13/20 04:00 Mechanical Ventilator 03/13/20 04:00 97.6 75 22 135/79 (97) 100 03/13/20 04:00 71 03/13/20 04:00 40 03/13/20 03:16 67 21 40 03/13/20 00:00 67 03/13/20 00:00 96.6 67 20 126/59 (81) 100 03/13/20 00:00 Mechanical Ventilator 03/13/20 00:00 40 03/12/20 23:07 73 19 40 03/12/20 20:21 71 130/64 03/12/20 20:00 73 03/12/20 20:00 40 03/12/20 20:00 Mechanical Ventilator 03/12/20 20:00 97.3 71 25 130/64 (86) 100 03/12/20 19:11 71 18 40 03/12/20 16:00 97.2 68 22 123/63 (83) 100 03/12/20 16:00 62 03/12/20 16:00 Mechanical Ventilator 03/12/20 16:00 40 03/12/20 14:55 68 14 40 03/12/20 12:00 40 03/12/20 12:00 Mechanical Ventilator 03/12/20 12:00 97.7 66 22 112/56 (74) 98 03/12/20 11:34 73 03/12/20 11:10 66 19 40 03/12/20 08:33 69 128/62 03/12/20 08:00 Mechanical Ventilator 03/12/20 08:00 97.0 69 20 128/62 (84) 99 03/12/20 08:00 40 03/12/20 07:46 73 03/12/20 07:20 69 17 40 03/12/20 04:00 40 03/12/20 04:00 72 03/12/20 04:00 97.3 72 23 134/66 (88) 100 03/12/20 04:00 40 03/12/20 04:00 Mechanical Ventilator 03/12/20 01:00 75 24 40 03/12/20 00:00 98.1 69 17 134/64 (87) 99 03/12/20 00:00 40 03/12/20 00:00 Mechanical Ventilator 03/11/20 23:17 70 03/11/20 20:18 72 135/60 03/11/20 20:00 97.3 72 16 135/60 (85) 100 03/11/20 20:00 40 03/11/20 20:00 Mechanical Ventilator 03/11/20 19:01 68 03/11/20 19:00 67 18 40 03/11/20 16:00 71 03/11/20 16:00 97.9 74 21 150/73 (98) 99 03/11/20 16:00 40 03/11/20 16:00 Mechanical Ventilator 03/11/20 15:04 62 18 40 03/11/20 12:00 97.7 71 21 139/67 (91) 100 03/11/20 11:50 70 03/11/20 11:16 Mechanical Ventilator 03/11/20 11:16 40 03/11/20 11:02 64 20 40 03/11/20 08:00 40 03/11/20 08:00 Mechanical Ventilator 03/11/20 08:00 97.2 70 21 130/65 (86) 100 03/11/20 07:36 72 Intake and Output 03/12/20 03/13/20 19:00 07:00 Intake Total 760 ml 485 ml Balance 760 ml 485 ml Intake Free Water 180 ml 100 ml IV Total 160 ml Tube Feeding 420 ml 385 ml # Voids 2 Labs Test 03/11/20 00:51 03/11/20 05:24 03/11/20 05:42 03/11/20 12:09 POC Whole Blood Glucose 149 MG/DL (74-106) 145 MG/DL (74-106) 132 MG/DL (74-106) White Blood Count 21.4 K/UL (4.8-10.8) Red Blood Count 2.52 M/UL (4.20-5.40) Hemoglobin 7.5 G/DL (12.0-16.0) Hematocrit 22.8 % (37.0-47.0) Mean Corpuscular Volume 91 FL (80-99) Mean Corpuscular Hemoglobin 29.8 PG (27.0-31.0) Mean Corpuscular Hemoglobin Concent 32.9 G/DL (32.0-36.0) Red Cell Distribution Width 15.2 % (11.6-14.8) Platelet Count 82 K/UL (150-450) Mean Platelet Volume 11.3 FL (6.5-10.1) Neutrophils (%) (Auto) % (45.0-75.0) Lymphocytes (%) (Auto) % (20.0-45.0) Monocytes (%) (Auto) % (1.0-10.0) Eosinophils (%) (Auto) % (0.0-3.0) Basophils (%) (Auto) % (0.0-2.0) Differential Total Cells Counted 100 Neutrophils % (Manual) 91 % (45-75) Lymphocytes % (Manual) 8 % (20-45) Monocytes % (Manual) 1 % (1-10) Eosinophils % (Manual) 0 % (0-3) Basophils % (Manual) 0 % (0-2) Band Neutrophils 0 % (0-8) Platelet Estimate Decreased Platelet Morphology Normal Hypochromasia 1+ Anisocytosis 1+ Sodium Level 133 MMOL/L (136-145) Potassium Level 3.8 MMOL/L (3.5-5.1) Chloride Level 97 MMOL/L (98-107) Carbon Dioxide Level 18 MMOL/L (21-32) Anion Gap 18 mmol/L (5-15) Blood Urea Nitrogen 119 mg/dL (7-18) Creatinine 3.0 MG/DL (0.55-1.30) Estimat Glomerular Filtration Rate 16.7 mL/min (>60) Glucose Level 148 MG/DL (74-106) Uric Acid 7.9 MG/DL (2.6-7.2) Calcium Level 6.2 MG/DL (8.5-10.1) Phosphorus Level 8.0 MG/DL (2.5-4.9) Total Bilirubin 0.3 MG/DL (0.2-1.0) Aspartate Amino Transf (AST/SGOT) 71 U/L (15-37) Alanine Aminotransferase (ALT/SGPT) 23 U/L (12-78) Alkaline Phosphatase 136 U/L (46-116) Total Creatine Kinase 286 U/L (26-308) C-Reactive Protein, Quantitative 7.0 mg/dL (0.00-0.90) Pro-B-Type Natriuretic Peptide > 22177 pg/mL (0-125) Total Protein 5.1 G/DL (6.4-8.2) Albumin 1.8 G/DL (3.4-5.0) Globulin 3.3 g/dL Albumin/Globulin Ratio 0.5 (1.0-2.7) Amylase Level 539 U/L (25-115) Lipase > 2000 U/L (73-393) Test 03/11/20 12:50 03/11/20 18:55 03/12/20 00:36 03/12/20 04:54 Prothrombin Time 15.1 SEC (9.30-11.50) Prothromb Time International Ratio 1.4 (0.9-1.1) Activated Partial Thromboplast Time 29 SEC (23-33) POC Whole Blood Glucose 123 MG/DL (74-106) 112 MG/DL (74-106) White Blood Count 14.4 K/UL (4.8-10.8) Red Blood Count 2.84 M/UL (4.20-5.40) Hemoglobin 8.4 G/DL (12.0-16.0) Hematocrit 25.3 % (37.0-47.0) Mean Corpuscular Volume 89 FL (80-99) Mean Corpuscular Hemoglobin 29.6 PG (27.0-31.0) Mean Corpuscular Hemoglobin Concent 33.3 G/DL (32.0-36.0) Red Cell Distribution Width 15.6 % (11.6-14.8) Platelet Count 80 K/UL (150-450) Mean Platelet Volume 11.3 FL (6.5-10.1) Neutrophils (%) (Auto) % (45.0-75.0) Lymphocytes (%) (Auto) % (20.0-45.0) Monocytes (%) (Auto) % (1.0-10.0) Eosinophils (%) (Auto) % (0.0-3.0) Basophils (%) (Auto) % (0.0-2.0) Differential Total Cells Counted 100 Neutrophils % (Manual) 88 % (45-75) Lymphocytes % (Manual) 7 % (20-45) Monocytes % (Manual) 3 % (1-10) Eosinophils % (Manual) 2 % (0-3) Basophils % (Manual) 0 % (0-2) Band Neutrophils 0 % (0-8) Platelet Estimate Decreased Platelet Morphology Normal Hypochromasia 1+ Sodium Level 135 MMOL/L (136-145) Potassium Level 3.5 MMOL/L (3.5-5.1) Chloride Level 98 MMOL/L (98-107) Carbon Dioxide Level 21 MMOL/L (21-32) Anion Gap 16 mmol/L (5-15) Blood Urea Nitrogen 82 mg/dL (7-18) Creatinine 2.4 MG/DL (0.55-1.30) Estimat Glomerular Filtration Rate 21.7 mL/min (>60) Glucose Level 99 MG/DL (74-106) Uric Acid 5.7 MG/DL (2.6-7.2) Calcium Level 6.6 MG/DL (8.5-10.1) Phosphorus Level 5.2 MG/DL (2.5-4.9) Total Bilirubin 0.3 MG/DL (0.2-1.0) Aspartate Amino Transf (AST/SGOT) 62 U/L (15-37) Alanine Aminotransferase (ALT/SGPT) 29 U/L (12-78) Alkaline Phosphatase 118 U/L (46-116) C-Reactive Protein, Quantitative 8.7 mg/dL (0.00-0.90) Pro-B-Type Natriuretic Peptide > 28534 pg/mL (0-125) Total Protein 5.0 G/DL (6.4-8.2) Albumin 1.7 G/DL (3.4-5.0) Globulin 3.3 g/dL Albumin/Globulin Ratio 0.5 (1.0-2.7) Random Vancomycin Level 16.0 ug/mL Test 03/12/20 05:43 03/12/20 07:18 03/12/20 12:36 03/12/20 18:05 POC Whole Blood Glucose 94 MG/DL (74-106) 83 MG/DL (74-106) 86 MG/DL (74-106) Test 03/12/20 23:53 03/13/20 05:27 03/13/20 06:13 POC Whole Blood Glucose 88 MG/DL (74-106) 78 MG/DL (74-106) White Blood Count 13.4 K/UL (4.8-10.8) Red Blood Count 2.72 M/UL (4.20-5.40) Hemoglobin 8.2 G/DL (12.0-16.0) Hematocrit 23.9 % (37.0-47.0) Mean Corpuscular Volume 88 FL (80-99) Mean Corpuscular Hemoglobin 30.3 PG (27.0-31.0) Mean Corpuscular Hemoglobin Concent 34.4 G/DL (32.0-36.0) Red Cell Distribution Width 14.9 % (11.6-14.8) Platelet Count 68 K/UL (150-450) Mean Platelet Volume 11.2 FL (6.5-10.1) Neutrophils (%) (Auto) % (45.0-75.0) Lymphocytes (%) (Auto) % (20.0-45.0) Monocytes (%) (Auto) % (1.0-10.0) Eosinophils (%) (Auto) % (0.0-3.0) Basophils (%) (Auto) % (0.0-2.0) Height (Feet): 5 Height (Inches): 3.00 Weight (Pounds): 128 Objective Physical Exam: Vitals: reviewed General: NAD HEENT: nc, at Neck: supple ++trach/vent Chest: clear breath sounds bilaterally Cardiovascular: RRR, no s3, s4 Abdomen: soft, nontender, nd +gtube Extremities: no cce, normal range of motion Neuro: alert Evan Muhammad MD Mar 13, 2020 07:25 Nena Mota NP Mar 14, 2020 11:21
[2020-03-13 07:30] LABS: ALANINE AMINOTRANSFERASE 28 U/L (12-78); ALBUMIN 1.6 G/DL (3.4-5.0); ALBUMIN/GLOBULIN RATIO 0.4 (1.0-2.7); ALKALINE PHOSPHATASE 113 U/L (46-116); ANION GAP 14 mmol/L (5-15); ASPARTATE AMINO TRANSFERASE 48 U/L (15-37); BILIRUBIN,TOTAL 0.3 MG/DL (0.2-1.0); BLOOD UREA NITROGEN 90 mg/dL (7-18); CALCIUM 6.5 MG/DL (8.5-10.1); CARBON DIOXIDE 22 MMOL/L (21-32); CHLORIDE 97 MMOL/L (98-107); CREATINE KINASE 173 U/L (26-308); CREATININE 2.6 MG/DL (0.55-1.30); POTASSIUM 3.5 MMOL/L (3.5-5.1); SODIUM 133 MMOL/L (136-145)
[2020-03-13 08:00] VITALS: BP 129/66
[2020-03-13] MEDS: Aspirin Baby 81mg GT SCH (08:15)
[2020-03-13] MEDS: Sucralfate 1gm tab GT SCH ×4 (08:16→20:15)
[2020-03-13] MEDS: Midodrine 10mg tab GT SCH ×3 (08:17→17:15)
[2020-03-13] MEDS: AVIBACTAM IV SCH ×2 (08:18→21:38)
[2020-03-13] MEDS: D5W IV SCH ×2 (08:18→21:38)
[2020-03-13] MEDS: CEFTAZIDIME IV SCH ×2 (08:18→21:38)
[2020-03-13] MEDS: Pantoprazole Inj IVP SCH ×2 (08:29→20:15)
[2020-03-13] MEDS: Dakin's 0.125% Soln (Quarter Strength) 16oz TOPIC SCH (08:30)
--- NOTE | 2020-03-13 09:23 | Infectious Diseases Prog Note ---
Assessment/Plan 49yo F with: MDR Kleb pna bacteremia AMS Anemia to 1.9 on admission 03/02 Leukocytosis to 40, improving GPC bacteremia UTI Pneumonia c/b mod-large R pleural effusion and small L pleural effusion - compressive atelectasis Hypotension 03/02 BCx 1/2 +Staph epi, 12 +Staph haemolyticus (m/l skin colonizers) UA+, UCx >100k P.stuartii (S-angelo) & CRE P.mirablis (R-polyB/colistin, S- tobramycin, per [facility] is "intrinsically resistant to Avycaz/Zerbaxa" not clear why to me and they are unable to elaborate more) COVID rapid neg, PCR neg CXR: Tracheostomy again demonstrated. Interim placement of a right jugular tunneled dialysis catheter. There is infiltrate and volume loss in the left lung, particularly in the perihilar region, suprahilar region, and base. Consolidation at the lung base is similar. The perihilar and suprahilar region consolidation is new. The right lung pleural space are clear. C.dif neg 03/03 BCx NTD 03/06 BCx 2/2 +MDR Kleb pna (arnett-R, including R-polyB, colistin), 02/14 +E.faecium VRE (R-amp, S-linezolid) 03/08 BCx NTD 03/09 CT CAP: Very limited exam, as described, due to massive anasarca. This could limit visualization of the discrete fluid collection such as an abscess. Extensive thoracoabdominal aortic dissection, as described above. Current flap begins just distal to the left subclavian artery origin; per report, there is history of surgical repair so there may have been surgical repair of the ascending thoracic aorta. Bilateral pleural effusions, slightly smaller than on earlier exams. Extensive atelectasis as a result. Extensive pulmonary par enchymal disease as detailed above. This may reflect pneumonia or pulmonary edema or both. Evidence of pulmonary arterial hypertension, with dilatation of the pulmonary artery. Considerable ascites fluid. 03/11 Chest US: Small right, trace left pleural effusions, insufficient for safe thoracentesis AF Sepsis Leukocytosis Hypoxia on vent Pneumonia c/b L pleural effusion (recurrent, prior determined to be transudative) - s/p thora 01/21, 1050cc removed Volume overload, BNP >35,0000, likely 2/2 progressive CKD --> ESRD ?Pancreatitis, Lipase >2000 Acute anemia to 5s CONS bacteremia, ?contaminant Aflutter w/ RVR 01/13 BCx 2/2 +S. epi COVID PCR neg Flu neg CXR: Large left pleural effusion. Bilateral interstitial and airspace infiltrates versus edema MRSA nares neg 01/16 BCx NTD 01/17 BCx / +Staph auricularis (skin colonizer) 01/18 Resp cx +MDR CRE PsA (S-gent, I-colistin, R-polyB) 01/18 C.dif neg 01/18 CXR: Similar opacification of the left hemithorax likely representing combination of pleural effusion with atelectasis versus pneumonia/edema. Decreased but persistent hazy opacity throughout the right lung may represent edema versus infectious/inflammatory process. 01/20 BCx NTD 01/21 L thora 1050 cc removed, cx NTD 01/25 Wound cx from Gtube site +CRE Kleb pna (arnett-R) and MDR PsA (colonizers) 01/26 CT A/P: Limited exam, due to severe diffuse anasarca. Ascites. Bilateral pleural effusions. Basilar pulmonary atelectatic changes and consolidation. Gastrostomy. Atrophic left kidney with a nephroureteral stents again demonstrated. Possible retrococcygeal decubitus changes. Correlate with clinical findings, consider MRI if there is concern for sacral osteomyelitis. Right hip intertrochanteric fracture, also previously demonstrated. Left femoral dialysis catheter. Nonspecific right lobe liver lesion is unchanged, not well- demonstrated. ctasia bordering on aneurysmal dilatation and possible chronic dissection of the distal thoracic aorta, also previously described. JAVIER on CKD On previous admission Sep-Oct 2019 required HD for short period Going to start HD this admission again R/o COVID 01/14 COVID PCR neg 12/[address] [facility] per report H/o UTI 11/27 u/a wbc 30-40, nit neg, leuk +3; ucx ESBL P. mirablis, ESBL M. morganii 09/14/ u/a wbc tnct, nit neg, leuk +3; ucx >100k MDR P. stuarti (S Ceftriaxone, Meropenem) 10/07 u/a wbc tnct, nit neg, leuk ; ucx >100k VRE 10/15/19 u/a wbc tnct; ucx >100k ESBL P. stuarti (S ertapenem, aztreonam) H/o transudative pleural effusion 11/28 Sp Thora (w: 169, PMN: 2%, L: 49% , LDH: 57, prot 2.5); cx Neg H/o PNA 10/15/19 Resp cx ESBL P. mirabilis, MDR P.a. (S only to Gent) 09/22 Resp cx + MDR PsA (S-gent; I-colistin; R-levofloxacin, Zosyn, angelo) 09/16/19 Sp cx ESBL P. mirablis H/o PPM site (pocket) infection and pocket abscess 2ry to S. epi-11/2018, sp >6weeks IV vancomycin 11/27 SP ABBIE: no evidence for vegetation on any of the valves 11/26/18 SP PPM removal: OR findings:The fibrous capsule enclosing the generator was then opened and there was a [id number] amount of yellowish fluid drainage. The generator was then removed.Atrial and ventricular leads were detached. The necrotic tissue of the pocket was then removed and the pocket was flushed with an antibiotic solution. Capsule, wound tissue and lead tip cx: Neg 2d echo: no vegetation seen US chest: 4.6 x 3.4 x 0.9 cm hypoechoic/anechoic area overlying left chest pacemaker power pack. This could represent either a discrete fluid collection or a focal area of very edematous tissue. Infected fluid pocket also possible. 11/18 Bcx 3/4 S. epi; 11/20 Bcx neg; 11/24 Bcx Neg; 11/27 Bcx Neg CAD s/p CABG GERD/gastritis Afib HTN Dysphagia sp GT Aortic dissection s/p repair 2017 S/p PPM Parkinson's Disease Schizophrenia Anxiety COPD Chronic resp failure s/p trach Hx of tracheal bleeding [place] resident ([facility]) VRE and MRSA colonized Plan: Cont daptomycin #4 given transient VRE bacteremia, sepsis - will need 14 day course from neg BCx 03/08, end date 03/21 CK on 03/13 = 173 (decreasing), next check 03/20 Cont Avycaz #8 given MDR Kleb pna bacteremia - will need 14 day course from neg BCx 03/08, end date 03/21 Cont tobramycin #8/10 per Pharmacy given +UCx results Appreciate Surgery input on thoracic aortic aneurysm noted on CT imaging - d/w Dr. Saavedra, pt needs emergent transfer out to [facility] for CT surgery evaluation, primary MD aware Given somewhat transient MDR Kleb pna bacteremia (was not on admission BCx and cleared rapidly after positive BCx), no current indication to remove Permacath as less likely 2/2 line infection and more likely 2/2 gut translocation in setting of GIB, though if leukocytosis persists despite appropriate abx, then will have to reconsider. F/u 03/06 BCx +MDR Kleb pna - need sensi to Avycaz/Zerbaxa (d/w lab, will perf orm) Trend Hg, GIB Trend BP, WBC 03/10/20 SP edson #4 empiric, vanco #9 01/31 SP angelo/inh tobra #10 for pna 01/23 SP vanco IV #10 given CONS/GPC bacteremia 01/16 SP Zosyn #2 01/14 SP dex 10mg in ED 12/10 SP IV Gentamycin #10 12/07 SP Meropenem #10 12/01 SP IV Vancomycin #5 11/28 Sp Cefepime #2 and IV Gentamycin x1 Monitor CBC/CMP Monitor temp curve, hemodynamics Monitor resp status D/w RN Thank you for this consult. [facility] will continue to follow. Subjective Allergies: Coded Allergies: No Known Allergies (Unverified , 10/10/17) AF WBC improving to 13 No changes Remains on vent 40% PEEP 5 Still waiting on transfer to [facility] Objective Last 24 Hour Vital Signs Date Time Temp Pulse Resp B/P (MAP) Pulse Ox O2 Delivery O2 Flow Rate FiO2 03/13/20 08:17 65 129/66 03/13/20 04:00 Mechanical Ventilator 03/13/20 04:00 97.6 75 22 135/79 (97) 100 03/13/20 04:00 71 03/13/20 04:00 40 03/13/20 03:16 67 21 40 03/13/20 00:00 67 03/13/20 00:00 96.6 67 20 126/59 (81) 100 03/13/20 00:00 Mechanical Ventilator 03/13/20 00:00 40 03/12/20 23:07 73 19 40 03/12/20 20:21 71 130/64 03/12/20 20:00 73 03/12/20 20:00 40 03/12/20 20:00 Mechanical Ventilator 03/12/20 20:00 97.3 71 25 130/64 (86) 100 03/12/20 19:11 71 18 40 03/12/20 16:00 97.2 68 22 123/63 (83) 100 03/12/20 16:00 62 03/12/20 16:00 Mechanical Ventilator 03/12/20 16:00 40 03/12/20 14:55 68 14 40 03/12/20 12:00 40 03/12/20 12:00 Mechanical Ventilator 03/12/20 12:00 97.7 66 22 112/56 (74) 98 03/12/20 11:34 73 03/12/20 11:10 66 19 40 Height (Feet): 5 Height (Inches): 3.00 Weight (Pounds): 128 Gen: NAD HEENT: NCAT, trach Pulm: BL chest rise on vent Abd: Soft, NTND, +PEG Ext: No c/c/e Skin: No visible rashes Neuro: Awake, minimally interactive Lines: R chest Permacath dressing c/d/i Laboratory Tests Test 03/12/20 12:36 03/12/20 18:05 03/12/20 23:53 03/13/20 05:27 POC Whole Blood Glucose 83 MG/DL (74-106) 86 MG/DL (74-106) 88 MG/DL (74-106) White Blood Count 13.4 K/UL (4.8-10.8) H Red Blood Count 2.72 M/UL (4.20-5.40) L Hemoglobin 8.2 G/DL (12.0-16.0) L Hematocrit 23.9 % (37.0-47.0) L Mean Corpuscular Volume 88 FL (80-99) Mean Corpuscular Hemoglobin 30.3 PG (27.0-31.0) Mean Corpuscular Hemoglobin Concent 34.4 G/DL (32.0-36.0) Red Cell Distribution Width 14.9 % (11.6-14.8) H Platelet Count 68 K/UL (150-450) L Mean Platelet Volume 11.2 FL (6.5-10.1) H Neutrophils (%) (Auto) % (45.0-75.0) Lymphocytes (%) (Auto) % (20.0-45.0) Monocytes (%) (Auto) % (1.0-10.0) Eosinophils (%) (Auto) % (0.0-3.0) Basophils (%) (Auto) % (0.0-2.0) Neutrophils % (Manual) Pending Lymphocytes % (Manual) Pending Platelet Estimate Pending Platelet Morphology Pending Sodium Level 133 MMOL/L (136-145) L Potassium Level 3.5 MMOL/L (3.5-5.1) Chloride Level 97 MMOL/L (98-107) L Carbon Dioxide Level 22 MMOL/L (21-32) Anion Gap 14 mmol/L (5-15) Blood Urea Nitrogen 90 mg/dL (7-18) H Creatinine 2.6 MG/DL (0.55-1.30) H Estimat Glomerular Filtration Rate 19.7 mL/min (>60) Glucose Level 80 MG/DL (74-106) Calcium Level 6.5 MG/DL (8.5-10.1) L Phosphorus Level 5.7 MG/DL (2.5-4.9) H Magnesium Level 2.2 MG/DL (1.8-2.4) Total Bilirubin 0.3 MG/DL (0.2-1.0) Aspartate Amino Transf (AST/SGOT) 48 U/L (15-37) H Alanine Aminotransferase (ALT/SGPT) 28 U/L (12-78) Alkaline Phosphatase 113 U/L (46-116) Total Creatine Kinase 173 U/L (26-308) C-Reactive Protein, Quantitative 9.1 mg/dL (0.00-0.90) H Pro-B-Type Natriuretic Peptide > 60253 pg/mL (0-125) H Total Protein 5.2 G/DL (6.4-8.2) L Albumin 1.6 G/DL (3.4-5.0) L Globulin 3.6 g/dL Albumin/Globulin Ratio 0.4 (1.0-2.7) L Test 03/13/20 06:13 POC Whole Blood Glucose 78 MG/DL (74-106) Current Medications Medications (Trade) Dose Ordered Sig/Penny Route PRN Reason Start Time Stop Time Status Last Admin Dose Admin Acetaminophen (Tylenol) 650 mg Q6H PRN GT Mild Pain (Pain Scale 1-3) 03/02/20 22:30 04/01/20 22:29 03/11/20 15:24 Acetaminophen (Tylenol) 650 mg Q6H PRN GT Temp >100.5 03/03/20 03:00 04/01/20 22:29 Aspirin (ASA) 81 mg DAILY GT 03/07/20 09:00 04/21/20 08:59 03/11/20 09:49 Carvedilol (Coreg) 3.125 mg EVERY 12 HOURS GT 03/11/20 21:00 04/10/20 20:59 03/13/20 08:17 Ceftazidime/ Avibactam 0.94 gm/ Dextrose 110 ml @ 110 mls/hr Q12HR IV 03/06/20 13:00 03/20/20 23:59 03/13/20 08:18 Chlorhexidine Gluconate (Ling-Hex 2%) 1 applic DAILY@2000 TOPIC 03/03/20 20:00 06/01/20 19:59 03/12/20 20:21 Daptomycin 500 mg/ Sodium Chloride 50 ml @ 100 mls/hr Q48H IV 03/10/20 13:00 03/17/20 12:59 03/12/20 13:19 Hydralazine HCl (Apresoline) 25 mg Q6H PRN GT For High Blood Pressure 03/02/20 22:00 05/31/20 21:59 Loperamide HCl (Imodium) 2 mg Q6H PRN GT Diarrhea 03/06/20 12:45 04/05/20 12:44 03/06/20 13:01 Metoclopramide HCl (Reglan) 5 mg Q8HR IVP 03/04/20 11:45 04/03/20 11:44 03/13/20 05:53 Midodrine (Pro-Amatine) 10 mg THREE TIMES A DAY GT 03/04/20 13:00 06/01/20 12:59 03/12/20 17:03 Pantoprazole (Protonix) 40 mg EVERY 12 HOURS IVP 03/04/20 21:00 04/02/20 20:59 03/13/20 08:29 Polyethylene Glycol (Miralax) 17 gm BEDTIME PRN GT Constipation 03/02/20 22:00 04/01/20 21:59 Sevelamer Carbonate (Renvela) 1,600 mg Q6HR NG 03/11/20 12:00 06/08/20 11:59 03/13/20 05:53 Sodium Hypochlorite (Dakin's Quarter Strength) 1 applic DAILY TOPIC 03/04/20 09:00 04/03/20 08:59 03/13/20 08:30 Sucralfate (Carafate) 1 gm FOUR TIMES A DAY GT 03/11/20 09:00 06/09/20 08:59 03/13/20 08:16 Tobramycin Protocol (Tobramycin pharmacy to dose) 1 ea DAILY PRN MISC Per rx protocol 03/06/20 09:15 04/05/20 09:14 Tobramycin Sulfate 80 mg/ Sodium Chloride 55 ml @ 110 mls/hr POSTHD IV 03/06/20 12:00 03/13/20 11:59 03/11/20 16:26 Ro Pack M.D. Mar 13, 2020 09:23
--- NOTE | 2020-03-13 09:36 | NUR ---
ASE MANAGEMENT:REVIEW 03/13/20 SI: SEPSIS. AC/CHR RENAL FAILURE. TRACH.VENT.GT THORACIC/ABDOMINAL AORTIC DISSECTION 97.6 75 22 135/79 100% ON VENT SUPPORT W/40% FIO2 WBC+13.4 H/H-8.2/23.9 PLT-68 BUN+90 CR+2.6 BNP>35690 IS: IV DAPTOMYCIN Q48HRS IV CEFTAZIDIME Q12 IV TOBRAMYCIN POST HD IVF@50/HR ASA GT QD IV PROTONIX Q12 IV REGLAN Q8HR COREG GT Q12 CARAFATE GT QID : STEP DOWN UNIT DCP: [facility]: NEEDS TO BE TRANSFERRED TO HIGHER LEVEL OF CARE ~ EXTENSIVE AORTIC THORACIC AND ABDOMINAL DISSECTION DIFFICULT TO FIND BED DURING PANDEMIC DIRECTOR OF CASE MANAGEMENT IS SEEKING A ACCEPTING HIGHER LEVEL OF CARE
--- NOTE | 2020-03-13 11:00 | NUR ---
NURSE NOTES: Initial assessment done. Morning medications given. Pt tolerated well. VSS. O2 saturation 98-100%. Tolerating G-tube feeding with no residual. Oral care done. Oral and tracheal suctioning done. Will continue to monitor pt.
--- NOTE | 2020-03-13 11:14 | General Progress Note ---
Subjective ROS Limited/Unobtainable: No Allergies: Coded Allergies: No Known Allergies (Unverified , 10/10/17) Objective Last 24 Hour Vital Signs Date Time Temp Pulse Resp B/P (MAP) Pulse Ox O2 Delivery O2 Flow Rate FiO2 03/13/20 08:17 65 129/66 03/13/20 08:00 Mechanical Ventilator 03/13/20 08:00 40 03/13/20 08:00 97.0 65 18 129/66 (87) 100 03/13/20 07:50 67 03/13/20 04:00 Mechanical Ventilator 03/13/20 04:00 97.6 75 22 135/79 (97) 100 03/13/20 04:00 71 03/13/20 04:00 40 03/13/20 03:16 67 21 40 03/13/20 00:00 67 03/13/20 00:00 96.6 67 20 126/59 (81) 100 03/13/20 00:00 Mechanical Ventilator 03/13/20 00:00 40 03/12/20 23:07 73 19 40 03/12/20 20:21 71 130/64 03/12/20 20:00 73 03/12/20 20:00 40 03/12/20 20:00 Mechanical Ventilator 03/12/20 20:00 97.3 71 25 130/64 (86) 100 03/12/20 19:11 71 18 40 03/12/20 16:00 97.2 68 22 123/63 (83) 100 03/12/20 16:00 62 03/12/20 16:00 Mechanical Ventilator 03/12/20 16:00 40 03/12/20 14:55 68 14 40 03/12/20 12:00 40 03/12/20 12:00 Mechanical Ventilator 03/12/20 12:00 97.7 66 22 112/56 (74) 98 03/12/20 11:34 73 Intake and Output 03/12/20 03/13/20 19:00 07:00 Intake Total 760 ml 485 ml Balance 760 ml 485 ml Intake Free Water 180 ml 100 ml IV Total 160 ml Tube Feeding 420 ml 385 ml # Voids 2 Laboratory Tests 03/12/20 12:36: POC Whole Blood Glucose 83 03/12/20 18:05: POC Whole Blood Glucose 86 03/12/20 23:53: POC Whole Blood Glucose 88 03/13/20 05:27: White Blood Count 13.4H, Red Blood Count 2.72L, Hemoglobin 8.2L, Hematocrit 23.9L, Mean Corpuscular Volume 88, Mean Corpuscular Hemoglobin 30.3, Mean Corpuscular Hemoglobin Concent 34.4, Red Cell Distribution Width 14.9H, Platelet Count 68L, Mean Platelet Volume 11.2H, Neutrophils (%) (Auto) , Lymphocytes (%) (Auto) , Monocytes (%) (Auto) , Eosinophils (%) (Auto) , Basophils (%) (Auto) , Differential Total Cells Counted 100, Neutrophils % (Manual) 84H, Lymphocytes % (Manual) 10L, Monocytes % (Manual) 4, Eosinophils % (Manual) 2, Basophils % (Manual) 0, Band Neutrophils 0, Platelet Estimate DecreasedL, Platelet Morphology Normal, Hypochromasia 1+, Anisocytosis 1+, Sodium Level 133L, Potassium Level 3.5, Chloride Level 97L, Carbon Dioxide Level 22, Anion Gap 14, Blood Urea Nitrogen 90H, Creatinine 2.6H, Estimat Glomerular Filtration Rate 19.7, Glucose Level 80, Calcium Level 6.5L, Phosphorus Level 5.7H, Magnesium Level 2.2, Total Bilirubin 0.3, Aspartate Amino Transf (AST/SGOT) 48H, Alanine Aminotransferase (ALT/SGPT) 28, Alkaline Phosphatase 113, Total Creatine Kinase 173, C-Reactive Protein, Quantitative 9.1H, Pro-B-Type Natriuretic Peptide > 21569I, Total Protein 5.2L, Albumin 1.6L, Globulin 3.6, Albumin/Globulin Ratio 0.4L 03/13/20 06:13: POC Whole Blood Glucose 78 Height (Feet): 5 Height (Inches): 3.00 Weight (Pounds): 128 General Appearance: no apparent distress EENT: PERRL/EOMI Neck: supple Cardiovascular: normal rate Respiratory/Chest: decreased breath sounds Abdomen: normal bowel sounds, non tender, soft Extremities: non-tender Assessment/Plan Problem List: (1) Hx of CABG ICD Codes: Z95.1 - Presence of aortocoronary bypass graft SNOMED: 582124769, 185279374 (2) History of tracheostomy ICD Codes: Z98.890 - Other specified postprocedural states SNOMED: 564482462, 908866389 (3) PEG (percutaneous endoscopic gastrostomy) status ICD Codes: Z93.1 - Gastrostomy status SNOMED: 127327686, 322145600 (4) Renal failure ICD Codes: N19 - Unspecified kidney failure SNOMED: 66563059, 195131250 (5) Severe anemia ICD Codes: D64.9 - Anemia, unspecified SNOMED: 992491266 Assessment/Plan: s/p EGD gastric ulcer on ppi fu H&H s/p one unit PRBC 03/11/20 on carafate TF Inder Mccauley MD Mar 13, 2020 11:14
[2020-03-13 12:00] VITALS: BP 123/68
[2020-03-13] MEDS ORDERED: Tubing IV Secondary IV ONE ×2 (12:14→12:18)
[2020-03-13] MEDS ORDERED: NS 275ml ONE (12:18)
--- NOTE | 2020-03-13 12:18 | NUR ---
RD ASSESSMENT & RECOMMENDATIONS SEE CARE ACTIVITY FOR COMPLETE ASSESSMENT DAILY ESTIMATED NEEDS: Needs based on Critical care, wound, renal dysfunction 59.5 kg 27-22 kcals/kg 4884-0047 total kcals W/ HD (1.5-2.0) g protein/kg 89-119 g total protein Fluid per MD mL/kg . total fluid mLs NUTRITION DIAGNOSIS: * Swallowing difficulty R/T dysphagia, respiratory status as evidenced by vent dep via trach, GT Dep. * Increase kcal and pro needs r/t wound healing, renal dysfunction as evidenced by h/o stage 4 sacral wound, and HD. CURRENT TF: Nepro @ 35ml/hr x 24 hrs ENTERAL NUTRITION RECOMMENDATIONS: Nepro @40ml/hr x 24 hrs + Prosource 1pkt BID to provide 960ml, 1728kcal,, 78g+22g prot, 779ml free water * Advance as tolerated to goal. * Add Prosource 1pkt QD to better meet increased protein needs (additional 11g prot) * Water flush per MD/ HOB over 30 degrees ADDITIONAL RECOMMENDATIONS: * Maintain calibrated bed scale * Monitor for HD continuity * WC eval-> w/ TF orders add FRANKLIN in 4oz H2O BID via GT Vit C per nephrology, Nephrovite 1 tab daily. * Monitor BGs closely for hypoglycemia- D10 now dc'ed. . .
--- NOTE | 2020-03-13 13:45 | Nephrology Progress Note ---
Assessment/Plan Problem List: (1) Renal failure (ARF), acute on chronic (2) Anemia (3) Hyponatremia (4) Respiratory failure Assessment (1) JAVIER (acute kidney injury) (2) Renal failure (ARF), acute on chronic (3) Feeding by G-tube (4) Tracheostomy in place (5) Electrolyte imbalance, hyponatremia (6) Anemia, severe (7) Respiratory failure, acute and chronic (8) history of elevated lipase, pancreatitis (9) Elevated troponin I (10) Sepsis Plan March 13: Labs reviewed. Due for dialysis today. Patient remains full code. Continue per current management. March 12: Labs reviewed. Dialyzed yesterday. Due for dialysis tomorrow. Discussed with RN. Patient full code. Continue per current management. March 11: Labs reviewed. Dialyzed this morning. Phosphorus binders dose adjusted. Continue per consultants. Continue to monitor renal parameters. CT: Extensive thoracoabdominal aortic dissection March 10: Labs reviewed. Will order dialysis tomorrow. Phosphorus binders added. Continue per consultants. March 09: No chemistry panel done today. Patient dialyzed yesterday. On dextrose 10% for hypoglycemia. We will check labs tomorrow. Dialysis as needed. March 08: Labs reviewed. Will order dialysis today. Blood sugar low. D10 50 cc an hour started. Continue as is. March 07: Labs reviewed. Dialyzed March 05 and March 06. Continue to monitor renal parameters and hemoglobin. Abnormal electrolytes addressed. IV fluids stopped. Per orders. March 06: Labs reviewed. Dialyzed yesterday. Will reorder dialysis for today. Continue to monitor renal parameters. Hemoglobin 8.4. Patient full code. March 05: Labs reviewed. Patient did not receive dialysis until this morning. Proceed with dialysis. Continue to monitor renal parameters and hemoglobin and hematocrit. March 04: Labs reviewed. Hemoglobin lower. Patient actively bleeding. Was not dialyzed yesterday. Due for GI endoscopy. Continue fluid challenge. Transfusion as needed. Dialysis today. March 03: Labs reviewed. Dialysis ordered. Blood pressure medication all discontinued due to hypotensive state. Albumin bolus given. Continue to monitor renal parameters. Medication list reviewed. Midodrin for low blood pressure ordered Subjective ROS Limited/Unobtainable: Yes Objective Objective Last 24 Hour Vital Signs Date Time Temp Pulse Resp B/P (MAP) Pulse Ox O2 Delivery O2 Flow Rate FiO2 03/13/20 12:00 Mechanical Ventilator 03/13/20 12:00 40 03/13/20 10:40 66 19 40 03/13/20 08:17 65 129/66 03/13/20 08:00 Mechanical Ventilator 03/13/20 08:00 40 03/13/20 08:00 97.0 65 18 129/66 (87) 100 03/13/20 07:50 67 03/13/20 06:40 65 18 40 03/13/20 04:00 Mechanical Ventilator 03/13/20 04:00 97.6 75 22 135/79 (97) 100 03/13/20 04:00 71 03/13/20 04:00 40 03/13/20 03:16 67 21 40 03/13/20 00:00 67 03/13/20 00:00 96.6 67 20 126/59 (81) 100 03/13/20 00:00 Mechanical Ventilator 03/13/20 00:00 40 03/12/20 23:07 73 19 40 03/12/20 20:21 71 130/64 03/12/20 20:00 73 03/12/20 20:00 40 03/12/20 20:00 Mechanical Ventilator 03/12/20 20:00 97.3 71 25 130/64 (86) 100 03/12/20 19:11 71 18 40 03/12/20 16:00 97.2 68 22 123/63 (83) 100 03/12/20 16:00 62 03/12/20 16:00 Mechanical Ventilator 03/12/20 16:00 40 03/12/20 14:55 68 14 40 Intake and Output 03/12/20 03/13/20 19:00 07:00 Intake Total 760 ml 485 ml Balance 760 ml 485 ml Intake Free Water 180 ml 100 ml IV Total 160 ml Tube Feeding 420 ml 385 ml # Voids 2 Current Medications Medications (Trade) Dose Ordered Sig/Penny Route PRN Reason Start Time Stop Time Status Last Admin Dose Admin Acetaminophen (Tylenol) 650 mg Q6H PRN GT Mild Pain (Pain Scale 1-3) 03/02/20 22:30 04/01/20 22:29 03/11/20 15:24 Acetaminophen (Tylenol) 650 mg Q6H PRN GT Temp >100.5 03/03/20 03:00 04/01/20 22:29 Aspirin (ASA) 81 mg DAILY GT 03/07/20 09:00 04/21/20 08:59 03/11/20 09:49 Carvedilol (Coreg) 3.125 mg EVERY 12 HOURS GT 03/11/20 21:00 04/10/20 20:59 03/13/20 08:17 Ceftazidime/ Avibactam 0.94 gm/ Dextrose 110 ml @ 110 mls/hr Q12HR IV 03/06/20 13:00 03/20/20 23:59 03/13/20 08:18 Chlorhexidine Gluconate (Ling-Hex 2%) 1 applic DAILY@1999 TOPIC 03/03/20 20:00 06/01/20 19:59 03/12/20 20:21 Daptomycin 500 mg/ Sodium Chloride 50 ml @ 100 mls/hr Q48H IV 03/10/20 13:00 03/17/20 12:59 03/12/20 13:19 Hydralazine HCl (Apresoline) 25 mg Q6H PRN GT For High Blood Pressure 03/02/20 22:00 05/31/20 21:59 Loperamide HCl (Imodium) 2 mg Q6H PRN GT Diarrhea 03/06/20 12:45 04/05/20 12:44 03/06/20 13:01 Metoclopramide HCl (Reglan) 5 mg Q8HR IVP 03/04/20 11:45 04/03/20 11:44 03/13/20 05:53 Midodrine (Pro-Amatine) 10 mg THREE TIMES A DAY GT 03/04/20 13:00 06/01/20 12:59 03/12/20 17:03 Pantoprazole (Protonix) 40 mg EVERY 12 HOURS IVP 03/04/20 21:00 04/02/20 20:59 03/13/20 08:29 Polyethylene Glycol (Miralax) 17 gm BEDTIME PRN GT Constipation 03/02/20 22:00 04/01/20 21:59 Sevelamer Carbonate (Renvela) 1,600 mg Q6HR NG 03/11/20 12:00 06/08/20 11:59 03/13/20 12:07 Sodium Hypochlorite (Dakin's Quarter Strength) 1 applic DAILY TOPIC 03/04/20 09:00 04/03/20 08:59 03/13/20 08:30 Sucralfate (Carafate) 1 gm FOUR TIMES A DAY GT 03/11/20 09:00 06/09/20 08:59 03/13/20 12:08 Tobramycin Protocol (Tobramycin pharmacy to dose) 1 ea DAILY PRN MISC Per rx protocol 03/06/20 09:15 04/05/20 09:14 Laboratory Tests 03/12/20 18:05: POC Whole Blood Glucose 86 03/12/20 23:53: POC Whole Blood Glucose 88 03/13/20 05:27: White Blood Count 13.4H, Red Blood Count 2.72L, Hemoglobin 8.2L, Hematocrit 23.9L, Mean Corpuscular Volume 88, Mean Corpuscular Hemoglobin 30.3, Mean Corpuscular Hemoglobin Concent 34.4, Red Cell Distribution Width 14.9H, Platelet Count 68L, Mean Platelet Volume 11.2H, Neutrophils (%) (Auto) , Lymphocytes (%) (Auto) , Monocytes (%) (Auto) , Eosinophils (%) (Auto) , Basophils (%) (Auto) , Differential Total Cells Counted 100, Neutrophils % (Manual) 84H, Lymphocytes % (Manual) 10L, Monocytes % (Manual) 4, Eosinophils % (Manual) 2, Basophils % (Manual) 0, Band Neutrophils 0, Platelet Estimate DecreasedL, Platelet Morphology Normal, Hypochromasia 1+, Anisocytosis 1+, Sodium Level 133L, Potassium Level 3.5, Chloride Level 97L, Carbon Dioxide Level 22, Anion Gap 14, Blood Urea Nitrogen 90H, Creatinine 2.6H, Estimat Glomerular Filtration Rate 19.7, Glucose Level 80, Calcium Level 6.5L, Phosphorus Level 5.7H, Magnesium Level 2.2, Total Bilirubin 0.3, Aspartate Amino Transf (AST/SGOT) 48H, Alanine Aminotransferase (ALT/SGPT) 28, Alkaline Phosphatase 113, Total Creatine Kinase 173, C-Reactive Protein, Quantitative 9.1H, Pro-B-Type Natriuretic Peptide > 44791C, Total Protein 5.2L, Albumin 1.6L, Globulin 3.6, Albumin/Globulin Ratio 0.4L 03/13/20 06:13: POC Whole Blood Glucose 78 03/13/20 12:36: POC Whole Blood Glucose 82 Height (Feet): 5 Height (Inches): 3.00 Weight (Pounds): 128 General Appearance: no apparent distress EENT: other - Trach to vent Cardiovascular: normal rate Respiratory/Chest: decreased breath sounds Abdomen: distended Johnny Houston MD Mar 13, 2020 13:45
--- NOTE | 2020-03-13 14:09 | Pulmonology Progress Note ---
Subjective ROS Limited/Unobtainable: Yes Interval Events: none major reported per nursing HEENT: Repors: no symptoms Respiratory: Reports: no symptoms Cardiovascular: Reports: no symptoms Gastrointestinal/Abdominal: Reports: diarrhea Allergies: Coded Allergies: No Known Allergies (Unverified , 10/10/17) All Systems: reviewed and negative except above Objective Last 24 Hour Vital Signs Date Time Temp Pulse Resp B/P (MAP) Pulse Ox O2 Delivery O2 Flow Rate FiO2 03/13/20 12:00 Mechanical Ventilator 03/13/20 12:00 40 03/13/20 10:40 66 19 40 03/13/20 08:17 65 129/66 03/13/20 08:00 Mechanical Ventilator 03/13/20 08:00 40 03/13/20 08:00 97.0 65 18 129/66 (87) 100 03/13/20 07:50 67 03/13/20 06:40 65 18 40 03/13/20 04:00 Mechanical Ventilator 03/13/20 04:00 97.6 75 22 135/79 (97) 100 03/13/20 04:00 71 03/13/20 04:00 40 03/13/20 03:16 67 21 40 03/13/20 00:00 67 03/13/20 00:00 96.6 67 20 126/59 (81) 100 03/13/20 00:00 Mechanical Ventilator 03/13/20 00:00 40 03/12/20 23:07 73 19 40 03/12/20 20:21 71 130/64 03/12/20 20:00 73 03/12/20 20:00 40 03/12/20 20:00 Mechanical Ventilator 03/12/20 20:00 97.3 71 25 130/64 (86) 100 03/12/20 19:11 71 18 40 03/12/20 16:00 97.2 68 22 123/63 (83) 100 03/12/20 16:00 62 03/12/20 16:00 Mechanical Ventilator 03/12/20 16:00 40 03/12/20 14:55 68 14 40 Intake and Output 03/12/20 03/13/20 19:00 07:00 Intake Total 760 ml 485 ml Balance 760 ml 485 ml Intake Free Water 180 ml 100 ml IV Total 160 ml Tube Feeding 420 ml 385 ml # Voids 2 General Appearance: no acute distress HEENT: atraumatic Respiratory: lungs clear Cardiovascular: regular rhythm, bradycardia Extremities: other - edema bilateral Laboratory Tests 03/12/20 18:05: POC Whole Blood Glucose 86 03/12/20 23:53: POC Whole Blood Glucose 88 03/13/20 05:27: White Blood Count 13.4H, Red Blood Count 2.72L, Hemoglobin 8.2L, Hematocrit 2 3.9L, Mean Corpuscular Volume 88, Mean Corpuscular Hemoglobin 30.3, Mean Corpuscular Hemoglobin Concent 34.4, Red Cell Distribution Width 14.9H, Platelet Count 68L, Mean Platelet Volume 11.2H, Neutrophils (%) (Auto) , Lymphocytes (%) (Auto) , Monocytes (%) (Auto) , Eosinophils (%) (Auto) , Basophils (%) (Auto) , Differential Total Cells Counted 100, Neutrophils % (Manual) 84H, Lymphocytes % (Manual) 10L, Monocytes % (Manual) 4, Eosinophils % (Manual) 2, Basophils % (Manual) 0, Band Neutrophils 0, Platelet Estimate DecreasedL, Platelet Morphology Normal, Hypochromasia 1+, Anisocytosis 1+, Sodium Level 133L, Potassium Level 3.5, Chloride Level 97L, Carbon Dioxide Level 22, Anion Gap 14, Blood Urea Nitrogen 90H, Creatinine 2.6H, Estimat Glomerular Filtration Rate 19.7, Glucose Level 80, Calcium Level 6.5L, Phosphorus Level 5.7H, Magnesium Level 2.2, Total Bilirubin 0.3, Aspartate Amino Transf (AST/SGOT) 48H, Alanine Aminotransferase (ALT/SGPT) 28, Alkaline Phosphatase 113, Total Creatine Kinase 173, C-Reactive Protein, Quantitative 9.1H, Pro-B-Type Natriuretic Peptide > 10771A, Total Protein 5.2L, Albumin 1.6L, Globulin 3.6, Albumin/Globulin Ratio 0.4L 03/13/20 06:13: POC Whole Blood Glucose 78 03/13/20 12:36: POC Whole Blood Glucose 82 Current Medications Medications (Trade) Dose Ordered Sig/Penny Route PRN Reason Start Time Stop Time Status Last Admin Dose Admin Acetaminophen (Tylenol) 650 mg Q6H PRN GT Mild Pain (Pain Scale 1-3) 03/02/20 22:30 04/01/20 22:29 03/11/20 15:24 Acetaminophen (Tylenol) 650 mg Q6H PRN GT Temp >100.5 03/03/20 03:00 04/01/20 22:29 Aspirin (ASA) 81 mg DAILY GT 03/07/20 09:00 04/21/20 08:59 03/11/20 09:49 Carvedilol (Coreg) 3.125 mg EVERY 12 HOURS GT 03/11/20 21:00 04/10/20 20:59 03/13/20 08:17 Ceftazidime/ Avibactam 0.94 gm/ Dextrose 110 ml @ 110 mls/hr Q12HR IV 03/06/20 13:00 03/20/20 23:59 03/13/20 08:18 Chlorhexidine Gluconate (Ling-Hex 2%) 1 applic DAILY@2000 TOPIC 03/03/20 20:00 06/01/20 19:59 03/12/20 20:21 Daptomycin 500 mg/ Sodium Chloride 50 ml @ 100 mls/hr Q48H IV 03/10/20 13:00 03/17/20 12:59 03/12/20 13:19 Hydralazine HCl (Apresoline) 25 mg Q6H PRN GT For High Blood Pressure 03/02/20 22:00 05/31/20 21:59 Loperamide HCl (Imodium) 2 mg Q6H PRN GT Diarrhea 03/06/20 12:45 04/05/20 12:44 03/06/20 13:01 Metoclopramide HCl (Reglan) 5 mg Q8HR IVP 03/04/20 11:45 04/03/20 11:44 03/13/20 05:53 Midodrine (Pro-Amatine) 10 mg THREE TIMES A DAY GT 03/04/20 13:00 06/01/20 12:59 03/12/20 17:03 Pantoprazole (Protonix) 40 mg EVERY 12 HOURS IVP 03/04/20 21:00 04/02/20 20:59 03/13/20 08:29 Polyethylene Glycol (Miralax) 17 gm BEDTIME PRN GT Constipation 03/02/20 22:00 04/01/20 21:59 Sevelamer Carbonate (Renvela) 1,600 mg Q6HR NG 03/11/20 12:00 06/08/20 11:59 03/13/20 12:07 Sodium Hypochlorite (Dakin's Quarter Strength) 1 applic DAILY TOPIC 03/04/20 09:00 04/03/20 08:59 03/13/20 08:30 Sucralfate (Carafate) 1 gm FOUR TIMES A DAY GT 03/11/20 09:00 06/09/20 08:59 03/13/20 12:08 Tobramycin Protocol (Tobramycin pharmacy to dose) 1 ea DAILY PRN MISC Per rx protocol 03/06/20 09:15 04/05/20 09:14 Assessment/Plan Assessment/Plan 1. Chronic respiratory failure. - CT chest/abd/pelv: improving pleural effusion - will order thoracentesis 2. Mechanical ventilation. - current setting at AC 14, Vt 500, FiO2 40%, PEEP 5 saturating at 97-98% - continue current setting - suction secretions as needed 3. Chronic tracheostomy. 4. Chronic G-tube. 5. Anemia. - s/p transfusion - stool OB positive - off anticoags 6. Renal failure. 7. Leukocytosis and sepsis. 8. Sepsis UTI 9. Gram positive cocci bacteremia 10. COVID-19 negative 11. Diarrhea - C. diff neg 12. Hypoglycemia - resolved 13. Bradycardia - no urgent indication for pacemaker per cardio 14. Gastric ulcer - on PPI - GI following 15. Pleural effusion - thoracentesis per ID recs; NOT performed given US chest finding of too small amount of pleural fluid for safe thoracentesis 16. thoracic aortic aneurysm - noted on CT imaging - pt needs emergent transfer out to [facility] for CT surgery evaluation, primary MD aware We will follow carefully. ID and Hematology following. The care for this patient was discussed with my supervising physician Time spent for this case was approximately 31 minutes Cruz Wilson Mar 13, 2020 14:09
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
--- NOTE | 2020-03-13 15:32 | NUR ---
INSURANCE CLINCALS AND REVIEW FAXED TO [facility] T: [phone] F: [phone]
[2020-03-13] MEDS: Acetaminophen 650mg/20.3ml GT PRN (15:48)
[2020-03-13 16:00] VITALS: BP 134/76
--- NOTE | 2020-03-13 18:48 | General Progress Note ---
Subjective Constitutional: Reports: no symptoms HEENT: Reports: no symptoms Cardiovascular: Reports: no symptoms Respiratory: Reports: no symptoms Gastrointestinal/Abdominal: Reports: no symptoms Genitourinary: Reports: no symptoms Neurologic/Psychiatric: Reports: no symptoms Endocrine: Reports: no symptoms Hematologic/Lymphatic: Reports: no symptoms Allergies: Coded Allergies: No Known Allergies (Unverified , 10/10/17) Objective Last 24 Hour Vital Signs Date Time Temp Pulse Resp B/P (MAP) Pulse Ox O2 Delivery O2 Flow Rate FiO2 03/13/20 16:00 Mechanical Ventilator 03/13/20 16:00 40 03/13/20 16:00 96.0 75 20 134/76 (95) 96 03/13/20 16:00 73 03/13/20 14:30 71 20 40 03/13/20 12:00 65 03/13/20 12:00 Mechanical Ventilator 03/13/20 12:00 40 03/13/20 12:00 96.5 65 20 123/68 (86) 100 03/13/20 10:40 66 19 40 03/13/20 08:17 65 129/66 03/13/20 08:00 Mechanical Ventilator 03/13/20 08:00 40 03/13/20 08:00 97.0 65 18 129/66 (87) 100 03/13/20 07:50 67 03/13/20 06:40 65 18 40 03/13/20 04:00 Mechanical Ventilator 03/13/20 04:00 97.6 75 22 135/79 (97) 100 03/13/20 04:00 71 03/13/20 04:00 40 03/13/20 03:16 67 21 40 03/13/20 00:00 67 03/13/20 00:00 96.6 67 20 126/59 (81) 100 03/13/20 00:00 Mechanical Ventilator 03/13/20 00:00 40 03/12/20 23:07 73 19 40 03/12/20 20:21 71 130/64 03/12/20 20:00 73 03/12/20 20:00 40 03/12/20 20:00 Mechanical Ventilator 03/12/20 20:00 97.3 71 25 130/64 (86) 100 03/12/20 19:11 71 18 40 Intake and Output 03/12/20 03/13/20 19:00 07:00 Intake Total 760 ml 520 ml Balance 760 ml 520 ml Intake Free Water 180 ml 100 ml IV Total 160 ml Tube Feeding 420 ml 420 ml # Voids 2 Laboratory Tests 03/12/20 23:53: POC Whole Blood Glucose 88 03/13/20 05:27: White Blood Count 13.4H, Red Blood Count 2.72L, Hemoglobin 8.2L, Hematocrit 23.9L, Mean Corpuscular Volume 88, Mean Corpuscular Hemoglobin 30.3, Mean Corpuscular Hemoglobin Concent 34.4, Red Cell Distribution Width 14.9H, Platelet Count 68L, Mean Platelet Volume 11.2H, Neutrophils (%) (Auto) , Lymphocytes (%) (Auto) , Monocytes (%) (Auto) , Eosinophils (%) (Auto) , Basophils (%) (Auto) , Differential Total Cells Counted 100, Neutrophils % (Manual) 84H, Lymphocytes % (Manual) 10L, Monocytes % (Manual) 4, Eosinophils % (Manual) 2, Basophils % (Manual) 0, Band Neutrophils 0, Platelet Estimate DecreasedL, Platelet Morphology Normal, Hypochromasia 1+, Anisocytosis 1+, Sodium Level 133L, Potassium Level 3.5, Chloride Level 97L, Carbon Dioxide Level 22, Anion Gap 14, Blood Urea Nitrogen 90H, Creatinine 2.6H, Estimat Glomerular Filtration Rate 19.7, Glucose Level 80, Calcium Level 6.5L, Phosphorus Level 5.7H, Magnesium Level 2.2, Total Bilirubin 0.3, Aspartate Amino Transf (AST/SGOT) 48H, Alanine Aminotransferase (ALT/SGPT) 28, Alkaline Phosphatase 113, Total Creatine Kinase 173, C-Reactive Protein, Quantitative 9.1H, Pro-B-Type Natriuretic Peptide > 33944N, Total Protein 5.2L, Albumin 1.6L, Globulin 3.6, Albumin/Globulin Ratio 0.4L 03/13/20 06:13: POC Whole Blood Glucose 78 03/13/20 12:36: POC Whole Blood Glucose 82 Height (Feet): 5 Height (Inches): 3.00 Weight (Pounds): 128 General Appearance: no apparent distress, alert EENT: normal ENT inspection Neck: supple Cardiovascular: normal rate, regular rhythm, no gallop/murmur, no JVD Respiratory/Chest: decreased breath sounds, rhonchi - bilaterally Abdomen: normal bowel sounds, non tender, soft, no organomegaly, no mass Extremities: non-tender Edema: 2+ Leg (L), 2+ Leg (R) Neurologic: alert, oriented x 3, responsive Assessment/Plan Status Narrative Patient is awake alert afebrile hemodynamically stable and oriented I have discussed today her case with the patient was not completely aware of the seriousness of her condition he did not complain of pain and was slightly tearful she did not understand the issue is aortic aneurysm and I will attempt to explain tomorrow again she is still on tobramycin IV case and vancomycin WBC WBC continue to decline to 13 today lower extremity edema remain unchanged 2+ blood pressure mental status is clear even though depressed repeat laboratory tests will be done in a.m. a Lucas Paul MD, MD Mar 13, 2020 18:48
--- NOTE | 2020-03-13 18:55 | NUR ---
NURSE NOTES: Blood sugar 68, recheck 66. Called and left a message with Dr. Dong. Awaiting reply. Will continue to closely monitor Pt.
--- NOTE | 2020-03-13 19:30 | NUR ---
NURSE NOTES: Received report from ERASMO Mcgovern. Pt awake in bed, afebrile, tracks and follow simple commands and no respiratory distress noted. trache to vent Shiley XLT, AC 14, TV 500, Fio2 100%, Peep of 5 saturating at 40%. With Gtube in place running nephro at 35 cc/hr intact, infusing and no residual amount noted. with right upper chest dialysis catheter intact, no bleeding noted. Dry dressing and clean. Hemodialysis done and 0 ml output. With left Fa 22G and right FA 20 g IV lines intact, patent and asymptomatic. Endorsed blood sugar 66 and awaiting for Md response by AM nurse. Assessed pt and no s/sx of hypoglycemia noted. Continue to monitor the patient.With FC to urine bag drain light yellow urine. HOB elevated. Call light within reach. Bed rails are up and wheels are locked. Call light within reach. Continue plan of care
--- NOTE | 2020-03-13 19:45 | NUR ---
NURSE HAND-OFF REPORT: Important Events on Shift:Hemodialysis done, Blood sugar 66 Patient Status: stable Diet: Nepro @ 35cc/hr Pending Orders: Glucose for Blood sugar Pending Results/Labs:N Pending notification:Low blood sugar Latest Vital Signs: Temperature 96.0 , Pulse 67 , B/P 134 /76 , Respiratory Rate 20 , O2 SAT 96 , Mechanical Ventilator, O2 Flow Rate . Vital Sign Comment: stable EKG Rhythm: Sinus Rhythm Rhythm change?: N Notified?: N -Dr Екатерина HATFIELD Response: No New Orders Received Latest [place] Fall Score: 50 Fall Risk: High Risk Safety Measures: Call light Within Reach, Bed Alarm Zone 1, Side Rails Side Rails x2, Bed position Low and Locked. Fall Precautions: Yellow Socks Report given to ERASMO SCRUGGS.
[2020-03-13 20:00] VITALS: BP 118/59
[2020-03-13] MEDS ORDERED: Glucagon 1mg Inj IM SCH (20:00)
[2020-03-13] MEDS: Dyna-Hex 2% Top Sol 2oz TOPIC SCH (20:16)
[2020-03-13] MEDS ORDERED: TOBRAMYCIN IV SCH (21:00)
[2020-03-13] MEDS ORDERED: NS IV SCH (21:00)
--- NOTE | 2020-03-13 21:10 | NUR ---
NURSE NOTES: Blood sugar was rechecked and resulted to 133. Continue to monitor the patient.
[2020-03-14] VITALS: BP 127/64
--- NOTE | 2020-03-14 02:38 | Cardiology Progress Note ---
Subjective DATE OF SERVICE: Mar 13, 2020 Heart rates mostly 60-70's now; tolerating low doses of carvedilol. BP parameters stable. CT scan now reveals two areas of aortic dissection. Dialysis per renal Objective Last 24 Hour Vital Signs Date Time Temp Pulse Resp B/P (MAP) Pulse Ox O2 Delivery O2 Flow Rate FiO2 03/14/20 00:00 Mechanical Ventilator 03/14/20 00:00 40 03/14/20 00:00 96.3 63 20 127/64 (85) 96 03/13/20 23:44 65 20 40 03/13/20 23:34 66 03/13/20 20:15 61 118/59 03/13/20 20:00 40 03/13/20 20:00 Mechanical Ventilator 03/13/20 20:00 96.6 64 20 118/59 (78) 96 03/13/20 19:42 65 03/13/20 19:09 67 20 40 03/13/20 16:00 Mechanical Ventilator 03/13/20 16:00 40 03/13/20 16:00 96.0 75 20 134/76 (95) 96 03/13/20 16:00 73 03/13/20 14:30 71 20 40 03/13/20 12:00 65 03/13/20 12:00 Mechanical Ventilator 03/13/20 12:00 40 03/13/20 12:00 96.5 65 20 123/68 (86) 100 03/13/20 10:40 66 19 40 03/13/20 08:17 65 129/66 03/13/20 08:00 Mechanical Ventilator 03/13/20 08:00 40 03/13/20 08:00 97.0 65 18 129/66 (87) 100 03/13/20 07:50 67 03/13/20 06:40 65 18 40 03/13/20 04:00 Mechanical Ventilator 03/13/20 04:00 97.6 75 22 135/79 (97) 100 03/13/20 04:00 71 03/13/20 04:00 40 03/13/20 03:16 67 21 40 HEENT: Thin Trach secretions RHYTHM: NSR, SB LUNGS: bilateral rhonchi - few, trach site clean CARDIAC: normal rate, regular rhythm, normal S1 and S2 ABDOMEN: normal bowel sounds, non tender, soft, G-Tube intact EXTREMITIES: normal range of motion, non-tender, normal inspection Laboratory Tests Test 03/13/20 05:27 03/13/20 06:13 03/13/20 12:36 03/13/20 19:07 White Blood Count 13.4 K/UL (4.8-10.8) H Red Blood Count 2.72 M/UL (4.20-5.40) L Hemoglobin 8.2 G/DL (12.0-16.0) L Hematocrit 23.9 % (37.0-47.0) L Mean Corpuscular Volume 88 FL (80-99) Mean Corpuscular Hemoglobin 30.3 PG (27.0-31.0) Mean Corpuscular Hemoglobin Concent 34.4 G/DL (32.0-36.0) Red Cell Distribution Width 14.9 % (11.6-14.8) H Platelet Count 68 K/UL (150-450) L Mean Platelet Volume 11.2 FL (6.5-10.1) H Neutrophils (%) (Auto) % (45.0-75.0) Lymphocytes (%) (Auto) % (20.0-45.0) Monocytes (%) (Auto) % (1.0-10.0) Eosinophils (%) (Auto) % (0.0-3.0) Basophils (%) (Auto) % (0.0-2.0) Differential Total Cells Counted 100 Neutrophils % (Manual) 84 % (45-75) H Lymphocytes % (Manual) 10 % (20-45) L Monocytes % (Manual) 4 % (1-10) Eosinophils % (Manual) 2 % (0-3) Basophils % (Manual) 0 % (0-2) Band Neutrophils 0 % (0-8) Platelet Estimate Decreased L Platelet Morphology Normal Hypochromasia 1+ Anisocytosis 1+ Sodium Level 133 MMOL/L (136-145) L Potassium Level 3.5 MMOL/L (3.5-5.1) Chloride Level 97 MMOL/L (98-107) L Carbon Dioxide Level 22 MMOL/L (21-32) Anion Gap 14 mmol/L (5-15) Blood Urea Nitrogen 90 mg/dL (7-18) H Creatinine 2.6 MG/DL (0.55-1.30) H Estimat Glomerular Filtration Rate 19.7 mL/min (>60) Glucose Level 80 MG/DL (74-106) Calcium Level 6.5 MG/DL (8.5-10.1) L Phosphorus Level 5.7 MG/DL (2.5-4.9) H Magnesium Level 2.2 MG/DL (1.8-2.4) Total Bilirubin 0.3 MG/DL (0.2-1.0) Aspartate Amino Transf (AST/SGOT) 48 U/L (15-37) H Alanine Aminotransferase (ALT/SGPT) 28 U/L (12-78) Alkaline Phosphatase 113 U/L (46-116) Total Creatine Kinase 173 U/L (26-308) C-Reactive Protein, Quantitative 9.1 mg/dL (0.00-0.90) H Pro-B-Type Natriuretic Peptide > 23467 pg/mL (0-125) H Total Protein 5.2 G/DL (6.4-8.2) L Albumin 1.6 G/DL (3.4-5.0) L Globulin 3.6 g/dL Albumin/Globulin Ratio 0.4 (1.0-2.7) L POC Whole Blood Glucose 78 MG/DL (74-106) 82 MG/DL (74-106) 66 MG/DL (74-106) L Test 03/13/20 19:38 03/13/20 21:11 03/13/20 23:44 POC Whole Blood Glucose 65 MG/DL (74-106) L 133 MG/DL (74-106) H 122 MG/DL (74-106) H Assessment/Plan Assessment/Plan Aortic dissections Sepsis with recovered shock Sinus node disease with bradycardia Hx pacemaker explant Ischemic cardiomyopathy - hx CABG? 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
[2020-03-14 04:00] VITALS: BP 136/79
[2020-03-14] MEDS: Renvela 800mg Pkt NG SCH ×4 (06:19→23:10)
[2020-03-14] MEDS: Metoclopramide 10mg/2ml Inj IVP SCH ×3 (06:19→22:16)
--- NOTE | 2020-03-14 07:10 | NUR ---
NURSE NOTES: Received report from ERASMO SCRUGGS. Pt is lying in bed, not in acute distress, tolerating vent setting: AC 14, TV 500, FiO2 40%, PEEP 5 with O2 saturation 96%. Sinus Rhythm on the monitor worker. Perma catheter in R upper chest intact and patent. G-tube is intact and patent running Nepro @ 35cc/hr. IV line on R forearm is intact and patent. Skin issues noted and dressing intact. Bed is locked and in lowest position, bed alarm on, call light within reach. Recent labs, medication and MD orders reviewed. Will continue to monitor pt. Will continue with the plan of care.
--- NOTE | 2020-03-14 07:10 | NUR ---
NURSE HAND-OFF REPORT: Important Events on Shift: stable Patient Status: stable Diet: Nephro Pending Orders: n Pending Results/Labs:n Pending notification:n Latest Vital Signs: Temperature 98.2 , Pulse 77 , B/P 136 /79 , Respiratory Rate 20 , O2 SAT 100 , Mechanical Ventilator, O2 Flow Rate . Vital Sign Comment: n EKG Rhythm: Sinus Rhythm Rhythm change?: N MD Notified?: N -Dr Екатерина HATFIELD Response: No New Orders Received Latest [place] Fall Score: 50 Fall Risk: High Risk Safety Measures: Call light Within Reach, Bed Alarm Zone 1, Side Rails Side Rails x2, Bed position Low and Locked. Fall Precautions: Yellow Socks Report given to ERASMO Mcgovern.
[2020-03-14 08:00] VITALS: BP 132/68
--- NOTE | 2020-03-14 08:46 | Pulmonology Progress Note ---
Subjective ROS Limited/Unobtainable: Yes Interval Events: s/p dialysis HEENT: Repors: no symptoms Respiratory: Reports: no symptoms Cardiovascular: Reports: no symptoms Gastrointestinal/Abdominal: Reports: diarrhea Allergies: Coded Allergies: No Known Allergies (Unverified , 10/10/17) All Systems: reviewed and negative except above Objective Last 24 Hour Vital Signs Date Time Temp Pulse Resp B/P (MAP) Pulse Ox O2 Delivery O2 Flow Rate FiO2 03/14/20 04:00 98.2 77 20 136/79 (98) 100 03/14/20 04:00 Mechanical Ventilator 03/14/20 04:00 40 03/14/20 03:56 69 03/14/20 03:48 76 23 40 03/14/20 00:00 Mechanical Ventilator 03/14/20 00:00 40 03/14/20 00:00 96.3 63 20 127/64 (85) 96 03/13/20 23:44 65 20 40 03/13/20 23:34 66 03/13/20 20:15 61 118/59 03/13/20 20:00 40 03/13/20 20:00 Mechanical Ventilator 03/13/20 20:00 96.6 64 20 118/59 (78) 96 03/13/20 19:42 65 03/13/20 19:09 67 20 40 03/13/20 16:00 Mechanical Ventilator 03/13/20 16:00 40 03/13/20 16:00 96.0 75 20 134/76 (95) 96 03/13/20 16:00 73 03/13/20 14:30 71 20 40 03/13/20 12:00 65 03/13/20 12:00 Mechanical Ventilator 03/13/20 12:00 40 03/13/20 12:00 96.5 65 20 123/68 (86) 100 03/13/20 10:40 66 19 40 Intake and Output 03/13/20 03/14/20 19:00 07:00 Intake Total 530 ml 635 ml Output Total 600 ml Balance 530 ml 35 ml Intake Free Water 140 ml 50 ml IV Total 110 ml 165 ml Tube Feeding 280 ml 420 ml Output Urine Total 600 ml # Bowel Movements 1 General Appearance: no acute distress HEENT: atraumatic Respiratory: lungs clear Cardiovascular: normal rate, regular rhythm Extremities: other - edema bilateral Laboratory Tests 03/13/20 12:36: POC Whole Blood Glucose 82 03/13/20 19:07: POC Whole Blood Glucose 66L 03/13/20 19:38: POC Whole Blood Glucose 65L 03/13/20 21:11: POC Whole Blood Glucose 133H 03/13/20 23:44: POC Whole Blood Glucose 122H 03/14/20 05:47: POC Whole Blood Glucose [Pending] Current Medications Medications (Trade) Dose Ordered Sig/Penny Route PRN Reason Start Time Stop Time Status Last Admin Dose Admin Acetaminophen (Tylenol) 650 mg Q6H PRN GT Mild Pain (Pain Scale 1-3) 03/02/20 22:30 04/01/20 22:29 03/13/20 15:48 Acetaminophen (Tylenol) 650 mg Q6H PRN GT Temp >100.5 03/03/20 03:00 04/01/20 22:29 Aspirin (ASA) 81 mg DAILY GT 03/07/20 09:00 04/21/20 08:59 03/11/20 09:49 Carvedilol (Coreg) 3.125 mg EVERY 12 HOURS GT 03/11/20 21:00 04/10/20 20:59 03/13/20 20:15 Ceftazidime/ Avibactam 0.94 gm/ Dextrose 110 ml @ 110 mls/hr Q12HR IV 03/06/20 13:00 03/20/20 23:59 03/13/20 21:38 Chlorhexidine Gluconate (Ling-Hex 2%) 1 applic DAILY@2000 TOPIC 03/03/20 20:00 06/01/20 19:59 03/13/20 20:16 Daptomycin 500 mg/ Sodium Chloride 50 ml @ 100 mls/hr Q48H IV 03/10/20 13:00 03/17/20 12:59 03/12/20 13:19 Hydralazine HCl (Apresoline) 25 mg Q6H PRN GT For High Blood Pressure 03/02/20 22:00 05/31/20 21:59 Loperamide HCl (Imodium) 2 mg Q6H PRN GT Diarrhea 03/06/20 12:45 04/05/20 12:44 03/06/20 13:01 Metoclopramide HCl (Reglan) 5 mg Q8HR IVP 03/04/20 11:45 04/03/20 11:44 03/14/20 06:19 Midodrine (Pro-Amatine) 10 mg THREE TIMES A DAY GT 03/04/20 13:00 06/01/20 12:59 03/12/20 17:03 Pantoprazole (Protonix) 40 mg EVERY 12 HOURS IVP 03/04/20 21:00 04/02/20 20:59 03/13/20 20:15 Polyethylene Glycol (Miralax) 17 gm BEDTIME PRN GT Constipation 03/02/20 22:00 04/01/20 21:59 Sevelamer Carbonate (Renvela) 1,600 mg Q6HR NG 03/11/20 12:00 06/08/20 11:59 03/14/20 06:19 Sodium Hypochlorite (Dakin's Quarter Strength) 1 applic DAILY TOPIC 03/04/20 09:00 04/03/20 08:59 03/13/20 08:30 Sucralfate (Carafate) 1 gm FOUR TIMES A DAY GT 03/11/20 09:00 06/09/20 08:59 03/13/20 20:15 Tobramycin Protocol (Tobramycin pharmacy to dose) 1 ea DAILY PRN MISC Per rx protocol 03/06/20 09:15 04/05/20 09:14 Assessment/Plan Assessment/Plan 1. Chronic respiratory failure. - CT chest/abd/pelv: improving pleural effusion 2. Mechanical ventilation. - current setting at AC 14, Vt 500, FiO2 40%, PEEP 5 saturating at 96% - continue current setting - suction secretions as needed 3. Chronic tracheostomy. 4. Chronic G-tube. 5. Anemia. - s/p transfusion - stool OB positive - off anticoags 6. Renal failure. 7. Leukocytosis and sepsis. 8. Sepsis UTI 9. Gram positive cocci bacteremia - f/u BCx negative for growth 10. COVID-19 negative 11. Diarrhea - C. diff neg 12. Hypoglycemia - resolved 13. Bradycardia - no urgent indication for pacemaker per cardio 14. Gastric ulcer - on PPI - GI following 15. Pleural effusion - thoracentesis per ID recs; NOT performed given US chest finding of too small amount of pleural fluid for safe thoracentesis 16. thoracic aortic aneurysm - noted on CT imaging - pt needs emergent transfer out to [facility] for CT surgery evaluation, primary MD aware - Pt might not be a candidate for TAA repair We will follow carefully. ID and Hematology following. The care for this patient was discussed with my supervising physician Time spent for this case was approximately 31 minutes Cruz Wilson Mar 14, 2020 08:46
[2020-03-14] MEDS: Midodrine 10mg tab GT SCH ×3 (09:00→17:10)
[2020-03-14] MEDS: Aspirin Baby 81mg GT SCH (09:08)
[2020-03-14] MEDS: Sucralfate 1gm tab GT SCH ×4 (09:08→20:20)
[2020-03-14] MEDS: Dakin's 0.125% Soln (Quarter Strength) 16oz TOPIC SCH (09:09)
[2020-03-14] MEDS: CEFTAZIDIME IV SCH ×2 (09:10→22:15)
[2020-03-14] MEDS: D5W IV SCH ×2 (09:10→22:15)
[2020-03-14] MEDS: AVIBACTAM IV SCH ×2 (09:10→22:15)
[2020-03-14] MEDS: Pantoprazole Inj IVP SCH ×2 (09:11→20:20)
--- NOTE | 2020-03-14 09:18 | Infectious Diseases Prog Note ---
Assessment/Plan 49yo F with: MDR Kleb pna bacteremia AMS Anemia to 1.9 on admission 03/02 Leukocytosis to 40, improving GPC bacteremia UTI Pneumonia c/b mod-large R pleural effusion and small L pleural effusion - compressive atelectasis Hypotension 03/02 BCx 1/2 +Staph epi, 12 +Staph haemolyticus (m/l skin colonizers) UA+, UCx >100k P.stuartii (S-angelo) & CRE P.mirablis (R-polyB/colistin, S- tobramycin, per [facility] is "intrinsically resistant to Avycaz/Zerbaxa" not clear why to me and they are unable to elaborate more) COVID rapid neg, PCR neg CXR: Tracheostomy again demonstrated. Interim placement of a right jugular tunneled dialysis catheter. There is infiltrate and volume loss in the left lung, particularly in the perihilar region, suprahilar region, and base. Consolidation at the lung base is similar. The perihilar and suprahilar region consolidation is new. The right lung pleural space are clear. C.dif neg 03/03 BCx NTD 03/06 BCx 2/2 +MDR Kleb pna (arnett-R, including R-polyB, colistin), 02/14 +E.faecium VRE (R-amp, S-linezolid) 03/08 BCx NTD 03/09 CT CAP: Very limited exam, as described, due to massive anasarca. This could limit visualization of the discrete fluid collection such as an abscess. Extensive thoracoabdominal aortic dissection, as described above. Current flap begins just distal to the left subclavian artery origin; per report, there is history of surgical repair so there may have been surgical repair of the ascending thoracic aorta. Bilateral pleural effusions, slightly smaller than on earlier exams. Extensive atelectasis as a result. Extensive pulmonary par enchymal disease as detailed above. This may reflect pneumonia or pulmonary edema or both. Evidence of pulmonary arterial hypertension, with dilatation of the pulmonary artery. Considerable ascites fluid. 03/11 Chest US: Small right, trace left pleural effusions, insufficient for safe thoracentesis AF Sepsis Leukocytosis Hypoxia on vent Pneumonia c/b L pleural effusion (recurrent, prior determined to be transudative) - s/p thora 01/21, 1050cc removed Volume overload, BNP >35,0000, likely 2/2 progressive CKD --> ESRD ?Pancreatitis, Lipase >2000 Acute anemia to 5s CONS bacteremia, ?contaminant Aflutter w/ RVR 01/13 BCx 2/2 +S. epi COVID PCR neg Flu neg CXR: Large left pleural effusion. Bilateral interstitial and airspace infiltrates versus edema MRSA nares neg 01/16 BCx NTD 01/17 BCx / +Staph auricularis (skin colonizer) 01/18 Resp cx +MDR CRE PsA (S-gent, I-colistin, R-polyB) 01/18 C.dif neg 01/18 CXR: Similar opacification of the left hemithorax likely representing combination of pleural effusion with atelectasis versus pneumonia/edema. Decreased but persistent hazy opacity throughout the right lung may represent edema versus infectious/inflammatory process. 01/20 BCx NTD 01/21 L thora 1050 cc removed, cx NTD 01/25 Wound cx from Gtube site +CRE Kleb pna (arnett-R) and MDR PsA (colonizers) 01/26 CT A/P: Limited exam, due to severe diffuse anasarca. Ascites. Bilateral pleural effusions. Basilar pulmonary atelectatic changes and consolidation. Gastrostomy. Atrophic left kidney with a nephroureteral stents again demonstrated. Possible retrococcygeal decubitus changes. Correlate with clinical findings, consider MRI if there is concern for sacral osteomyelitis. Right hip intertrochanteric fracture, also previously demonstrated. Left femoral dialysis catheter. Nonspecific right lobe liver lesion is unchanged, not well- demonstrated. ctasia bordering on aneurysmal dilatation and possible chronic dissection of the distal thoracic aorta, also previously described. JAVIER on CKD On previous admission Sep-Oct 2019 required HD for short period Going to start HD this admission again R/o COVID 01/14 COVID PCR neg 12/29 neg at [facility] per report H/o UTI 11/27 u/a wbc 30-40, nit neg, leuk +3; ucx ESBL P. mirablis, ESBL M. morganii 09/14/ u/a wbc tnct, nit neg, leuk +3; ucx >100k MDR P. stuarti (S Ceftriaxone, Meropenem) 10/07 u/a wbc tnct, nit neg, leuk ; ucx >100k VRE 10/15/19 u/a wbc tnct; ucx >100k ESBL P. stuarti (S ertapenem, aztreonam) H/o transudative pleural effusion 11/28 Sp Thora (w: 169, PMN: 2%, L: 49% , LDH: 57, prot 2.5); cx Neg H/o PNA 10/15/19 Resp cx ESBL P. mirabilis, MDR P.a. (S only to Gent) 09/22 Resp cx + MDR PsA (S-gent; I-colistin; R-levofloxacin, Zosyn, angelo) 09/16/19 Sp cx ESBL P. mirablis H/o PPM site (pocket) infection and pocket abscess 2ry to S. epi-11/2018, sp >6weeks IV vancomycin 11/27 SP ABBIE: no evidence for vegetation on any of the valves 11/26/18 SP PPM removal: OR findings:The fibrous capsule enclosing the generator was then opened and there was a [id number] amount of yellowish fluid drainage. The generator was then removed.Atrial and ventricular leads were detached. The necrotic tissue of the pocket was then removed and the pocket was flushed with an antibiotic solution. Capsule, wound tissue and lead tip cx: Neg 2d echo: no vegetation seen US chest: 4.6 x 3.4 x 0.9 cm hypoechoic/anechoic area overlying left chest pacemaker power pack. This could represent either a discrete fluid collection or a focal area of very edematous tissue. Infected fluid pocket also possible. 11/18 Bcx 3/4 S. epi; 11/20 Bcx neg; 11/24 Bcx Neg; 11/27 Bcx Neg CAD s/p CABG GERD/gastritis Afib HTN Dysphagia sp GT Aortic dissection s/p repair 2017 S/p PPM Parkinson's Disease Schizophrenia Anxiety COPD Chronic resp failure s/p trach Hx of tracheal bleeding OR resident ([facility]) VRE and MRSA colonized Plan: Cont daptomycin #5 given transient VRE bacteremia, sepsis - will need 14 day course from neg BCx 03/08, end date 03/21 CK on 03/13 = 173 (decreasing), next check 03/20 Cont Avycaz #9 given MDR Kleb pna bacteremia - will need 14 day course from neg BCx 03/08, end date 03/21 Cont tobramycin #9/10 per Pharmacy given +UCx results Appreciate Surgery input on thoracic aortic aneurysm noted on CT imaging - d/w Dr. Saavedra, pt needs emergent transfer out to [facility] for CT surgery evaluation, primary MD aware Given somewhat transient MDR Kleb pna bacteremia (was not on admission BCx and cleared rapidly after positive BCx), no current indication to remove Permacath as less likely 2/2 line infection and more likely 2/2 gut translocation in setting of GIB, though if leukocytosis persists despite appropriate abx, then will have to reconsider. F/u 03/06 BCx +MDR Kleb pna - need sensi to Avycaz/Zerbaxa (d/w lab, will perf orm) Trend Hg, GIB Trend BP, WBC 03/10/20 SP edson #4 empiric, vanco #9 01/31 SP angelo/inh tobra #10 for pna 01/23 SP vanco IV #10 given CONS/GPC bacteremia 01/16 SP Zosyn #2 01/14 SP dex 10mg in ED 12/10 SP IV Gentamycin #10 12/07 SP Meropenem #10 12/01 SP IV Vancomycin #5 11/28 Sp Cefepime #2 and IV Gentamycin x1 Monitor CBC/CMP Monitor temp curve, hemodynamics Monitor resp status D/w RN Thank you for this consult. [facility] will continue to follow. Subjective Allergies: Coded Allergies: No Known Allergies (Unverified , 10/10/17) AF Remains stable on vent 40% PEEP 5 Awaiting transfer to [facility] Improving on abx Objective Last 24 Hour Vital Signs Date Time Temp Pulse Resp B/P (MAP) Pulse Ox O2 Delivery O2 Flow Rate FiO2 03/14/20 09:08 70 132/68 03/14/20 08:00 70 03/14/20 04:00 98.2 77 20 136/79 (98) 100 03/14/20 04:00 Mechanical Ventilator 03/14/20 04:00 40 03/14/20 03:56 69 03/14/20 03:48 76 23 40 03/14/20 00:00 Mechanical Ventilator 03/14/20 00:00 40 03/14/20 00:00 96.3 63 20 127/64 (85) 96 03/13/20 23:44 65 20 40 03/13/20 23:34 66 03/13/20 20:15 61 118/59 03/13/20 20:00 40 03/13/20 20:00 Mechanical Ventilator 03/13/20 20:00 96.6 64 20 118/59 (78) 96 03/13/20 19:42 65 03/13/20 19:09 67 20 40 03/13/20 16:00 Mechanical Ventilator 03/13/20 16:00 40 03/13/20 16:00 96.0 75 20 134/76 (95) 96 03/13/20 16:00 73 03/13/20 14:30 71 20 40 03/13/20 12:00 65 03/13/20 12:00 Mechanical Ventilator 03/13/20 12:00 40 03/13/20 12:00 96.5 65 20 123/68 (86) 100 03/13/20 10:40 66 19 40 Height (Feet): 5 Height (Inches): 3.00 Weight (Pounds): 128 Gen: NAD HEENT: NCAT, trach Pulm: BL chest rise on vent Abd: Soft, NTND, +PEG Ext: No c/c/e Skin: No visible rashes Neuro: Awake, minimally interactive Lines: R chest Permacath dressing c/d/i Laboratory Tests Test 03/13/20 12:36 03/13/20 19:07 03/13/20 19:38 03/13/20 21:11 POC Whole Blood Glucose 82 MG/DL (74-106) 66 MG/DL (74-106) L 65 MG/DL (74-106) L 133 MG/DL (74-106) H Test 03/13/20 23:44 03/14/20 05:47 POC Whole Blood Glucose 122 MG/DL (74-106) H Pending Current Medications Medications (Trade) Dose Ordered Sig/Penny Route PRN Reason Start Time Stop Time Status Last Admin Dose Admin Acetaminophen (Tylenol) 650 mg Q6H PRN GT Mild Pain (Pain Scale 1-3) 03/02/20 22:30 04/01/20 22:29 03/13/20 15:48 Acetaminophen (Tylenol) 650 mg Q6H PRN GT Temp >100.5 03/03/20 03:00 04/01/20 22:29 Aspirin (ASA) 81 mg DAILY GT 03/07/20 09:00 04/21/20 08:59 03/14/20 09:08 Carvedilol (Coreg) 3.125 mg EVERY 12 HOURS GT 03/11/20 21:00 04/10/20 20:59 03/14/20 09:08 Ceftazidime/ Avibactam 0.94 gm/ Dextrose 110 ml @ 110 mls/hr Q12HR IV 03/06/20 13:00 03/20/20 23:59 03/14/20 09:10 Chlorhexidine Gluconate (Ling-Hex 2%) 1 applic DAILY@2000 TOPIC 03/03/20 20:00 06/01/20 19:59 03/13/20 20:16 Daptomycin 500 mg/ Sodium Chloride 50 ml @ 100 mls/hr Q48H IV 03/10/20 13:00 03/17/20 12:59 03/12/20 13:19 Hydralazine HCl (Apresoline) 25 mg Q6H PRN GT For High Blood Pressure 03/02/20 22:00 05/31/20 21:59 Loperamide HCl (Imodium) 2 mg Q6H PRN GT Diarrhea 03/06/20 12:45 04/05/20 12:44 03/06/20 13:01 Metoclopramide HCl (Reglan) 5 mg Q8HR IVP 03/04/20 11:45 04/03/20 11:44 03/14/20 06:19 Midodrine (Pro-Amatine) 10 mg THREE TIMES A DAY GT 03/04/20 13:00 06/01/20 12:59 03/12/20 17:03 Pantoprazole (Protonix) 40 mg EVERY 12 HOURS IVP 03/04/20 21:00 04/02/20 20:59 03/14/20 09:11 Polyethylene Glycol (Miralax) 17 gm BEDTIME PRN GT Constipation 03/02/20 22:00 04/01/20 21:59 Sevelamer Carbonate (Renvela) 1,600 mg Q6HR NG 03/11/20 12:00 06/08/20 11:59 03/14/20 06:19 Sodium Hypochlorite (Dakin's Quarter Strength) 1 applic DAILY TOPIC 03/04/20 09:00 04/03/20 08:59 03/14/20 09:09 Sucralfate (Carafate) 1 gm FOUR TIMES A DAY GT 03/11/20 09:00 06/09/20 08:59 03/14/20 09:08 Tobramycin Protocol (Tobramycin pharmacy to dose) 1 ea DAILY PRN MISC Per rx protocol 03/06/20 09:15 04/05/20 09:14 Ro Pack M.D. Mar 14, 2020 09:18
--- NOTE | 2020-03-14 10:00 | NUR ---
NURSE NOTES: Initial assessment done. Pt is awake. Morning medications administered per order. Pt tolerating vent setting. VSS. Sinus Rhythm on the nuclear monitoring technician. Not in acute distress. Oral suctioning done. G-tube patent and intact. Will continue to monitor pt. Will continue with the plan of care.
--- NOTE | 2020-03-14 11:18 | Hematology/Onc Progress Note ---
Assessment/Plan Assessment/Plan # Leukocytosis, now with likely bacteremia, as per ID care --> Cxr: : Large left abiola consolidation/effusion --> wbc 30-->40-->27->30->29-->35->32-->28-->21 --> ABX angelo/vanc-->tobra/edson/vanc --> smear reviewed --> ID recs are noted # Elevated tumor markers, cea and ca 19.9 --> reviewed prior 01/27/20 cat scan a/p --> no masses noted, hold off further extensive w/u # Anemia of chronic disease due to underlying chronic medical issues, multifact orial --> Anemia workup has been reviewed, cw acd --> No evidence of hemolysis is noted, peripheral smear has been reviewed. --> Hgb goal >7. Transfuse prn. --> Epogen required in prior --> Medications have been reviewed --> low threshold for gi evaluation in case has occult + --> hgb 1.9-->5-->7.1-->8.8-->8.1->7.5-> 8.2 --> 1 unit prbc1, 2 units 01/15, 03/02 --> gi eval as needed # Coagulopathy with inr 1.5 --> consider vit k/ffp as needed preprocedure --> labs noted # Thrombocytopenia likely reactive v medication indcued --> plt 200-->129->91 --> r/o dic # Aortic dissection as seen on Ct ==> when stable, consider transfer hloc # JAVIER initially >2 --> on ivfs --> per renal # Elevated d-dimer, likely infection related --> venous duplex prior neg --> in prior neg # Dysphagia s/p peg --> as per gi # Thoracic aortic dissection --> s/p repair early 2017 # Chronic Resp failure -> s/p trach/vent # Psychiatric history on ativan/haldol # CT resident # Dvt ppx --> scds The timing of this note does not necessarily reflect the time of the patient was seen. Greatly appreciate consultation. Subjective Allergies: Coded Allergies: No Known Allergies (Unverified , 10/10/17) Subjective 03/04 for 1 unit transfusion this am as hgb remains low, wbc better 03/05 egd was done did show large nonbleeding gastric ulcer, high tumor markers 03/06 nv, with davis overnight, bp remains stable, with occult + stool, dw Rn 03/09 nv, remains stable, on vanc/tobra/edson, meds reviewed, no bleeding 03/10 nv, on vent, no bleeding, receiving abx, no night sweats 03/11 nv, dw surgeon and pcp, with aortic dissection to transfer [facility] when stable 03/12 nv, labs reviewed, wbc 21, hgb 7.5, otherwise is comfortable 03/13 nv, labs noted, no bleeding, wbc 13, hgb improved, meds reviewed 03/14: Objective Objective Current Medications Medications (Trade) Dose Ordered Sig/Penny Route PRN Reason Start Time Stop Time Status Last Admin Dose Admin Acetaminophen (Tylenol) 650 mg Q6H PRN GT Mild Pain (Pain Scale 1-3) 03/02/20 22:30 04/01/20 22:29 03/13/20 15:48 Acetaminophen (Tylenol) 650 mg Q6H PRN GT Temp >100.5 03/03/20 03:00 04/01/20 22:29 Aspirin (ASA) 81 mg DAILY GT 03/07/20 09:00 04/21/20 08:59 03/14/20 09:08 Carvedilol (Coreg) 3.125 mg EVERY 12 HOURS GT 03/11/20 21:00 04/10/20 20:59 03/14/20 09:08 Ceftazidime/ Avibactam 0.94 gm/ Dextrose 110 ml @ 110 mls/hr Q12HR IV 03/06/20 13:00 03/20/20 23:59 03/14/20 09:10 Chlorhexidine Gluconate (Ling-Hex 2%) 1 applic DAILY@2000 TOPIC 03/03/20 20:00 06/01/20 19:59 03/13/20 20:16 Daptomycin 500 mg/ Sodium Chloride 50 ml @ 100 mls/hr Q48H IV 03/10/20 13:00 03/17/20 12:59 03/12/20 13:19 Hydralazine HCl (Apresoline) 25 mg Q6H PRN GT For High Blood Pressure 03/02/20 22:00 05/31/20 21:59 Loperamide HCl (Imodium) 2 mg Q6H PRN GT Diarrhea 03/06/20 12:45 04/05/20 12:44 03/06/20 13:01 Metoclopramide HCl (Reglan) 5 mg Q8HR IVP 03/04/20 11:45 04/03/20 11:44 03/14/20 06:19 Midodrine (Pro-Amatine) 10 mg THREE TIMES A DAY GT 03/04/20 13:00 06/01/20 12:59 03/12/20 17:03 Pantoprazole (Protonix) 40 mg EVERY 12 HOURS IVP 03/04/20 21:00 04/02/20 20:59 03/14/20 09:11 Polyethylene Glycol (Miralax) 17 gm BEDTIME PRN GT Constipation 03/02/20 22:00 04/01/20 21:59 Sevelamer Carbonate (Renvela) 1,600 mg Q6HR NG 03/11/20 12:00 06/08/20 11:59 03/14/20 06:19 Sodium Hypochlorite (Dakin's Quarter Strength) 1 applic DAILY TOPIC 03/04/20 09:00 04/03/20 08:59 03/14/20 09:09 Sucralfate (Carafate) 1 gm FOUR TIMES A DAY GT 03/11/20 09:00 06/09/20 08:59 03/14/20 09:08 Tobramycin Protocol (Tobramycin pharmacy to dose) 1 ea DAILY PRN MISC Per rx protocol 03/06/20 09:15 04/05/20 09:14 Last 24 Hour Vital Signs Date Time Temp Pulse Resp B/P (MAP) Pulse Ox O2 Delivery O2 Flow Rate FiO2 03/14/20 09:08 70 132/68 03/14/20 08:00 97.7 72 23 132/68 (89) 96 03/14/20 08:00 70 03/14/20 08:00 40 03/14/20 08:00 Mechanical Ventilator 03/14/20 04:00 98.2 77 20 136/79 (98) 100 03/14/20 04:00 Mechanical Ventilator 03/14/20 04:00 40 03/14/20 03:56 69 03/14/20 03:48 76 23 40 1/30/21 00:00 Mechanical Ventilator 03/14/20 00:00 40 03/14/20 00:00 96.3 63 20 127/64 (85) 96 03/13/20 23:44 65 20 40 03/13/20 23:34 66 03/13/20 20:15 61 118/59 03/13/20 20:00 40 03/13/20 20:00 Mechanical Ventilator 03/13/20 20:00 96.6 64 20 118/59 (78) 96 03/13/20 19:42 65 03/13/20 19:09 67 20 40 03/13/20 16:00 Mechanical Ventilator 03/13/20 16:00 40 03/13/20 16:00 96.0 75 20 134/76 (95) 96 03/13/20 16:00 73 03/13/20 14:30 71 20 40 03/13/20 12:00 65 03/13/20 12:00 Mechanical Ventilator 03/13/20 12:00 40 03/13/20 12:00 96.5 65 20 123/68 (86) 100 03/13/20 10:40 66 19 40 03/13/20 08:17 65 129/66 03/13/20 08:00 Mechanical Ventilator 03/13/20 08:00 40 03/13/20 08:00 97.0 65 18 129/66 (87) 100 03/13/20 07:50 67 03/13/20 06:40 65 18 40 03/13/20 04:00 Mechanical Ventilator 03/13/20 04:00 97.6 75 22 135/79 (97) 100 03/13/20 04:00 71 03/13/20 04:00 40 03/13/20 03:16 67 21 40 03/13/20 00:00 67 03/13/20 00:00 96.6 67 20 126/59 (81) 100 03/13/20 00:00 Mechanical Ventilator 03/13/20 00:00 40 03/12/20 23:07 73 19 40 03/12/20 20:21 71 130/64 03/12/20 20:00 73 03/12/20 20:00 40 03/12/20 20:00 Mechanical Ventilator 03/12/20 20:00 97.3 71 25 130/64 (86) 100 03/12/20 19:11 71 18 40 03/12/20 16:00 97.2 68 22 123/63 (83) 100 03/12/20 16:00 62 03/12/20 16:00 Mechanical Ventilator 03/12/20 16:00 40 03/12/20 14:55 68 14 40 03/12/20 12:00 40 03/12/20 12:00 Mechanical Ventilator 03/12/20 12:00 97.7 66 22 112/56 (74) 98 03/12/20 11:34 73 Intake and Output 03/13/20 03/14/20 19:00 07:00 Intake Total 530 ml 635 ml Output Total 600 ml Balance 530 ml 35 ml Intake Free Water 140 ml 50 ml IV Total 110 ml 165 ml Tube Feeding 280 ml 420 ml Output Urine Total 600 ml # Bowel Movements 1 Labs Test 03/11/20 12:09 03/11/20 12:50 03/11/20 18:55 03/12/20 00:36 POC Whole Blood Glucose 132 MG/DL (74-106) 123 MG/DL (74-106) 112 MG/DL (74-106) Prothrombin Time 15.1 SEC (9.30-11.50) Prothromb Time International Ratio 1.4 (0.9-1.1) Activated Partial Thromboplast Time 29 SEC (23-33) Test 03/12/20 04:54 03/12/20 05:43 03/12/20 07:18 03/12/20 12:36 White Blood Count 14.4 K/UL (4.8-10.8) Red Blood Count 2.84 M/UL (4.20-5.40) Hemoglobin 8.4 G/DL (12.0-16.0) Hematocrit 25.3 % (37.0-47.0) Mean Corpuscular Volume 89 FL (80-99) Mean Corpuscular Hemoglobin 29.6 PG (27.0-31.0) Mean Corpuscular Hemoglobin Concent 33.3 G/DL (32.0-36.0) Red Cell Distribution Width 15.6 % (11.6-14.8) Platelet Count 80 K/UL (150-450) Mean Platelet Volume 11.3 FL (6.5-10.1) Neutrophils (%) (Auto) % (45.0-75.0) Lymphocytes (%) (Auto) % (20.0-45.0) Monocytes (%) (Auto) % (1.0-10.0) Eosinophils (%) (Auto) % (0.0-3.0) Basophils (%) (Auto) % (0.0-2.0) Differential Total Cells Counted 100 Neutrophils % (Manual) 88 % (45-75) Lymphocytes % (Manual) 7 % (20-45) Monocytes % (Manual) 3 % (1-10) Eosinophils % (Manual) 2 % (0-3) Basophils % (Manual) 0 % (0-2) Band Neutrophils 0 % (0-8) Platelet Estimate Decreased Platelet Morphology Normal Hypochromasia 1+ Sodium Level 135 MMOL/L (136-145) Potassium Level 3.5 MMOL/L (3.5-5.1) Chloride Level 98 MMOL/L (98-107) Carbon Dioxide Level 21 MMOL/L (21-32) Anion Gap 16 mmol/L (5-15) Blood Urea Nitrogen 82 mg/dL (7-18) Creatinine 2.4 MG/DL (0.55-1.30) Estimat Glomerular Filtration Rate 21.7 mL/min (>60) Glucose Level 99 MG/DL (74-106) Uric Acid 5.7 MG/DL (2.6-7.2) Calcium Level 6.6 MG/DL (8.5-10.1) Phosphorus Level 5.2 MG/DL (2.5-4.9) Total Bilirubin 0.3 MG/DL (0.2-1.0) Aspartate Amino Transf (AST/SGOT) 62 U/L (15-37) Alanine Aminotransferase (ALT/SGPT) 29 U/L (12-78) Alkaline Phosphatase 118 U/L (46-116) C-Reactive Protein, Quantitative 8.7 mg/dL (0.00-0.90) Pro-B-Type Natriuretic Peptide > 44425 pg/mL (0-125) Total Protein 5.0 G/DL (6.4-8.2) Albumin 1.7 G/DL (3.4-5.0) Globulin 3.3 g/dL Albumin/Globulin Ratio 0.5 (1.0-2.7) Random Vancomycin Level 16.0 ug/mL POC Whole Blood Glucose 94 MG/DL (74-106) 83 MG/DL (74-106) Test 03/12/20 18:05 03/12/20 23:53 03/13/20 05:27 03/13/20 06:13 POC Whole Blood Glucose 86 MG/DL (74-106) 88 MG/DL (74-106) 78 MG/DL (74-106) White Blood Count 13.4 K/UL (4.8-10.8) Red Blood Count 2.72 M/UL (4.20-5.40) Hemoglobin 8.2 G/DL (12.0-16.0) Hematocrit 23.9 % (37.0-47.0) Mean Corpuscular Volume 88 FL (80-99) Mean Corpuscular Hemoglobin 30.3 PG (27.0-31.0) Mean Corpuscular Hemoglobin Concent 34.4 G/DL (32.0-36.0) Red Cell Distribution Width 14.9 % (11.6-14.8) Platelet Count 68 K/UL (150-450) Mean Platelet Volume 11.2 FL (6.5-10.1) Neutrophils (%) (Auto) % (45.0-75.0) Lymphocytes (%) (Auto) % (20.0-45.0) Monocytes (%) (Auto) % (1.0-10.0) Eosinophils (%) (Auto) % (0.0-3.0) Basophils (%) (Auto) % (0.0-2.0) Differential Total Cells Counted 100 Neutrophils % (Manual) 84 % (45-75) Lymphocytes % (Manual) 10 % (20-45) Monocytes % (Manual) 4 % (1-10) Eosinophils % (Manual) 2 % (0-3) Basophils % (Manual) 0 % (0-2) Band Neutrophils 0 % (0-8) Platelet Estimate Decreased Platelet Morphology Normal Hypochromasia 1+ Anisocytosis 1+ Sodium Level 133 MMOL/L (136-145) Potassium Level 3.5 MMOL/L (3.5-5.1) Chloride Level 97 MMOL/L (98-107) Carbon Dioxide Level 22 MMOL/L (21-32) Anion Gap 14 mmol/L (5-15) Blood Urea Nitrogen 90 mg/dL (7-18) Creatinine 2.6 MG/DL (0.55-1.30) Estimat Glomerular Filtration Rate 19.7 mL/min (>60) Glucose Level 80 MG/DL (74-106) Calcium Level 6.5 MG/DL (8.5-10.1) Phosphorus Level 5.7 MG/DL (2.5-4.9) Magnesium Level 2.2 MG/DL (1.8-2.4) Total Bilirubin 0.3 MG/DL (0.2-1.0) Aspartate Amino Transf (AST/SGOT) 48 U/L (15-37) Alanine Aminotransferase (ALT/SGPT) 28 U/L (12-78) Alkaline Phosphatase 113 U/L (46-116) Total Creatine Kinase 173 U/L (26-308) C-Reactive Protein, Quantitative 9.1 mg/dL (0.00-0.90) Pro-B-Type Natriuretic Peptide > 61373 pg/mL (0-125) Total Protein 5.2 G/DL (6.4-8.2) Albumin 1.6 G/DL (3.4-5.0) Globulin 3.6 g/dL Albumin/Globulin Ratio 0.4 (1.0-2.7) Test 03/13/20 12:36 03/13/20 19:07 03/13/20 19:38 03/13/20 21:11 POC Whole Blood Glucose 82 MG/DL (74-106) 66 MG/DL (74-106) 65 MG/DL (74-106) 133 MG/DL (74-106) Test 03/13/20 23:44 03/14/20 05:47 POC Whole Blood Glucose 122 MG/DL (74-106) Height (Feet): 5 Height (Inches): 3.00 Weight (Pounds): 128 Objective Physical Exam: Vitals: reviewed General: NAD HEENT: nc, at Neck: supple ++trach/vent Chest: clear breath sounds bilaterally Cardiovascular: RRR, no s3, s4 Abdomen: soft, nontender, nd +gtube Extremities: no cce, normal range of motion Neuro: alert Nena Mota NP Mar 14, 2020 11:18
[2020-03-14 12:00] VITALS: BP 131/72
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
[2020-03-14] MEDS: SODIUM CHLORIDE IV SCH (12:52)
[2020-03-14] MEDS: DAPTOMYCIN 500 MG IV SCH (12:52)
--- NOTE | 2020-03-14 13:09 | NUR ---
INSURANCE CLINCALS FAXED TO [facility] T: [phone] F: [phone]
--- NOTE | 2020-03-14 14:16 | Nephrology Progress Note ---
Assessment/Plan Problem List: (1) Renal failure (ARF), acute on chronic (2) Anemia (3) Hyponatremia (4) Respiratory failure Assessment (1) JAVIER (acute kidney injury) (2) Renal failure (ARF), acute on chronic (3) Feeding by G-tube (4) Tracheostomy in place (5) Electrolyte imbalance, hyponatremia (6) Anemia, severe (7) Respiratory failure, acute and chronic (8) history of elevated lipase, pancreatitis (9) Elevated troponin I (10) Sepsis Plan March 14: No labs drawn today. Dialyzed yesterday. Full code. Will check lab tomorrow. Dialysis as needed. March 13: Labs reviewed. Due for dialysis today. Patient remains full code. Continue per current management. March 12: Labs reviewed. Dialyzed yesterday. Due for dialysis tomorrow. Discussed with RN. Patient full code. Continue per current management. March 11: Labs reviewed. Dialyzed this morning. Phosphorus binders dose adjusted. Continue per consultants. Continue to monitor renal parameters. CT: Extensive thoracoabdominal aortic dissection March 10: Labs reviewed. Will order dialysis tomorrow. Phosphorus binders added. Continue per consultants. March 09: No chemistry panel done today. Patient dialyzed yesterday. On dextrose 10% for hypoglycemia. We will check labs tomorrow. Dialysis as n eeded. March 08: Labs reviewed. Will order dialysis today. Blood sugar low. D10 50 cc an hour started. Continue as is. March 07: Labs reviewed. Dialyzed March 05 and March 06. Continue to monitor renal parameters and hemoglobin. Abnormal electrolytes addressed. IV fluids stopped. Per orders. March 06: Labs reviewed. Dialyzed yesterday. Will reorder dialysis for today. Continue to monitor renal parameters. Hemoglobin 8.4. Patient full code. March 05: Labs reviewed. Patient did not receive dialysis until this morning. Proceed with dialysis. Continue to monitor renal parameters and hemoglobin and hematocrit. March 04: Labs reviewed. Hemoglobin lower. Patient actively bleeding. Was not dialyzed yesterday. Due for GI endoscopy. Continue fluid challenge. Transfusion as needed. Dialysis today. March 03: Labs reviewed. Dialysis ordered. Blood pressure medication all discontinued due to hypotensive state. Albumin bolus given. Continue to monitor renal parameters. Medication list reviewed. Midodrin for low blood pressure ordered Subjective ROS Limited/Unobtainable: Yes Objective Objective Last 24 Hour Vital Signs Date Time Temp Pulse Resp B/P (MAP) Pulse Ox O2 Delivery O2 Flow Rate FiO2 03/14/20 12:00 40 03/14/20 12:00 97.5 70 20 131/72 (91) 96 03/14/20 12:00 Mechanical Ventilator 03/14/20 12:00 71 03/14/20 11:30 75 21 40 03/14/20 09:08 70 132/68 03/14/20 08:00 97.7 72 23 132/68 (89) 96 03/14/20 08:00 70 03/14/20 08:00 40 03/14/20 08:00 Mechanical Ventilator 03/14/20 07:12 72 23 40 03/14/20 04:00 98.2 77 20 136/79 (98) 100 03/14/20 04:00 Mechanical Ventilator 03/14/20 04:00 40 03/14/20 03:56 69 03/14/20 03:48 76 23 40 03/14/20 00:00 Mechanical Ventilator 03/14/20 00:00 40 03/14/20 00:00 96.3 63 20 127/64 (85) 96 03/13/20 23:44 65 20 40 03/13/20 23:34 66 03/13/20 20:15 61 118/59 03/13/20 20:00 40 03/13/20 20:00 Mechanical Ventilator 03/13/20 20:00 96.6 64 20 118/59 (78) 96 03/13/20 19:42 65 03/13/20 19:09 67 20 40 03/13/20 16:00 Mechanical Ventilator 03/13/20 16:00 40 03/13/20 16:00 96.0 75 20 134/76 (95) 96 03/13/20 16:00 73 03/13/20 14:30 71 20 40 Intake and Output 03/13/20 03/14/20 19:00 07:00 Intake Total 530 ml 635 ml Output Total 600 ml Balance 530 ml 35 ml Intake Free Water 140 ml 50 ml IV Total 110 ml 165 ml Tube Feeding 280 ml 420 ml Output Urine Total 600 ml # Bowel Movements 1 Laboratory Tests 03/13/20 19:07: POC Whole Blood Glucose 66L 03/13/20 19:38: POC Whole Blood Glucose 65L 03/13/20 21:11: POC Whole Blood Glucose 133H 03/13/20 23:44: POC Whole Blood Glucose 122H 03/14/20 05:47: POC Whole Blood Glucose [Pending] 03/14/20 12:31: POC Whole Blood Glucose 89 Height (Feet): 5 Height (Inches): 3.00 Weight (Pounds): 128 General Appearance: no apparent distress EENT: other - Intubated on ventilator Cardiovascular: normal rate Respiratory/Chest: decreased breath sounds Abdomen: distended Johnny Houston MD Mar 14, 2020 14:16
[2020-03-14 16:00] VITALS: BP 115/54
--- NOTE | 2020-03-14 16:26 | Cardiology Progress Note ---
Subjective DATE OF SERVICE: Mar 14, 2020 Heart rates mostly 60-70's now; tolerating low doses of carvedilol. BP parameters stable. CT scan now reveals extensive thoracoabd aortic dissection. Dialysis per renal; last session was 03/13/20 Objective Last 24 Hour Vital Signs Date Time Temp Pulse Resp B/P (MAP) Pulse Ox O2 Delivery O2 Flow Rate FiO2 03/14/20 16:00 Mechanical Ventilator 03/14/20 16:00 40 03/14/20 12:00 40 03/14/20 12:00 97.5 70 20 131/72 (91) 96 03/14/20 12:00 Mechanical Ventilator 03/14/20 12:00 71 03/14/20 11:30 75 21 40 03/14/20 09:08 70 132/68 03/14/20 08:00 97.7 72 23 132/68 (89) 96 03/14/20 08:00 70 03/14/20 08:00 40 03/14/20 08:00 Mechanical Ventilator 03/14/20 07:12 72 23 40 03/14/20 04:00 98.2 77 20 136/79 (98) 100 03/14/20 04:00 Mechanical Ventilator 03/14/20 04:00 40 03/14/20 03:56 69 03/14/20 03:48 76 23 40 03/14/20 00:00 Mechanical Ventilator 03/14/20 00:00 40 03/14/20 00:00 96.3 63 20 127/64 (85) 96 03/13/20 23:44 65 20 40 03/13/20 23:34 66 03/13/20 20:15 61 118/59 03/13/20 20:00 40 03/13/20 20:00 Mechanical Ventilator 03/13/20 20:00 96.6 64 20 118/59 (78) 96 03/13/20 19:42 65 03/13/20 19:09 67 20 40 HEENT: Thin Trach secretions RHYTHM: NSR, SB LUNGS: bilateral rhonchi - few, trach site clean CARDIAC: normal rate, regular rhythm, normal S1 and S2 ABDOMEN: normal bowel sounds, non tender, soft, G-Tube intact EXTREMITIES: normal range of motion, non-tender, normal inspection Laboratory Tests Test 03/13/20 19:07 1/29/21 19:38 03/13/20 21:11 03/13/20 23:44 POC Whole Blood Glucose 66 MG/DL (74-106) L 65 MG/DL (74-106) L 133 MG/DL (74-106) H 122 MG/DL (74-106) H Test 03/14/20 05:47 03/14/20 12:31 POC Whole Blood Glucose Pending 89 MG/DL (74-106) Assessment/Plan Assessment/Plan Aortic dissections Sepsis with recovered shock Sinus node disease with bradycardia Hx pacemaker explant Ischemic cardiomyopathy - hx CABG? 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
--- NOTE | 2020-03-14 19:00 | NUR ---
NURSE NOTES: Received patient from ERASMO Mcgovern. patient is non verbal, awake, and tracks. sinus rhythm on the monitor. trach to vent AC 14 TV 500 FiO2 40% PEEP 5, tolerating well. Gtube in place and tube feeding running Nepro @35, tolerating well. Permacath in place, clean dry and intact. bed to lowest position and locked, call light within easy reach, side rails up x2. will continue plan of care.
--- NOTE | 2020-03-14 19:05 | General Progress Note ---
Subjective Constitutional: Reports: no symptoms HEENT: Reports: no symptoms Cardiovascular: Reports: no symptoms Respiratory: Reports: no symptoms Gastrointestinal/Abdominal: Reports: no symptoms Genitourinary: Reports: no symptoms Neurologic/Psychiatric: Reports: no symptoms Endocrine: Reports: no symptoms Allergies: Coded Allergies: No Known Allergies (Unverified , 10/10/17) Objective Last 24 Hour Vital Signs Date Time Temp Pulse Resp B/P (MAP) Pulse Ox O2 Delivery O2 Flow Rate FiO2 03/14/20 17:25 76 23 40 03/14/20 16:00 Mechanical Ventilator 03/14/20 16:00 40 03/14/20 16:00 97.0 74 22 115/54 (74) 96 03/14/20 16:00 77 03/14/20 15:30 74 24 40 03/14/20 13:26 70 21 40 03/14/20 12:00 40 03/14/20 12:00 97.5 70 20 131/72 (91) 96 03/14/20 12:00 Mechanical Ventilator 03/14/20 12:00 71 03/14/20 11:30 75 21 40 03/14/20 09:27 72 24 40 03/14/20 09:08 70 132/68 03/14/20 08:00 97.7 72 23 132/68 (89) 96 03/14/20 08:00 70 03/14/20 08:00 40 03/14/20 08:00 Mechanical Ventilator 03/14/20 07:12 72 23 40 03/14/20 04:00 98.2 77 20 136/79 (98) 100 03/14/20 04:00 Mechanical Ventilator 03/14/20 04:00 40 03/14/20 03:56 69 03/14/20 03:48 76 23 40 03/14/20 00:00 Mechanical Ventilator 03/14/20 00:00 40 03/14/20 00:00 96.3 63 20 127/64 (85) 96 03/13/20 23:44 65 20 40 03/13/20 23:34 66 03/13/20 20:15 61 118/59 03/13/20 20:00 40 03/13/20 20:00 Mechanical Ventilator 03/13/20 20:00 96.6 64 20 118/59 (78) 96 03/13/20 19:42 65 03/13/20 19:09 67 20 40 Intake and Output 03/13/20 03/14/20 19:00 07:00 Intake Total 530 ml 635 ml Output Total 600 ml Balance 530 ml 35 ml Intake Free Water 140 ml 50 ml IV Total 110 ml 165 ml Tube Feeding 280 ml 420 ml Output Urine Total 600 ml # Bowel Movements 1 Laboratory Tests 03/13/20 19:07: POC Whole Blood Glucose 66L 03/13/20 19:38: POC Whole Blood Glucose 65L 03/13/20 21:11: POC Whole Blood Glucose 133H 03/13/20 23:44: POC Whole Blood Glucose 122H 03/14/20 05:47: POC Whole Blood Glucose [Pending] 03/14/20 12:31: POC Whole Blood Glucose 89 03/14/20 18:55: POC Whole Blood Glucose 80 Height (Feet): 5 Height (Inches): 3.00 Weight (Pounds): 128 General Appearance: WD/WN, alert, lethargic EENT: normal ENT inspection Neck: supple Cardiovascular: normal rate, regular rhythm, no gallop/murmur, no JVD Respiratory/Chest: no respiratory distress, no accessory muscle use, decreased breath sounds, rhonchi - left Abdomen: normal bowel sounds, non tender, soft, no organomegaly, no mass Neurologic: alert Assessment/Plan Status Narrative Patient is alert eye contact normal attention span as opposed to yesterday no communication could be obtained today she remained afebrile hemodynamically stable without tachycardia with decreased breath sounds in both bases there were no blood test performed today cause is unclear and her previous blood tests are progressively declined change in antibiotic therapy took place today tobramycin was DC'd and patient is currently purely on daptomycin and IV case no new place was found for the management of aortic aneurysm repeat laboratory tests will be done in a.m. Lucas Canales MD, MD Mar 14, 2020 19:05
--- NOTE | 2020-03-14 19:20 | NUR ---
NURSE HAND-OFF REPORT: Important Events on Shift:N Patient Status: Full code Diet: Nepro @ 35cc/hr Pending Orders: N Pending Results/Labs:N Pending MD notification:N Latest Vital Signs: Temperature 97.0 , Pulse 66 , B/P 115 /54 , Respiratory Rate 25 , O2 SAT 96 , Mechanical Ventilator, O2 Flow Rate . Vital Sign Comment: stable EKG Rhythm: Sinus Rhythm Rhythm change?: N MD Notified?: N -Dr Екатерина HATFIELD Response: No New Orders Received Latest [place] Fall Score: 50 Fall Risk: High Risk Safety Measures: Call light Within Reach, Bed Alarm Zone 1, Side Rails Side Rails x2, Bed position Low and Locked. Fall Precautions: Yellow Socks Report given to ERASMO Abdul.
[2020-03-14 20:00] VITALS: BP 112/69
[2020-03-14] MEDS: Dyna-Hex 2% Top Sol 2oz TOPIC SCH (20:20)
[2020-03-14] MEDS: Carvedilol 6.25mg Tab GT SCH (20:21)
[2020-03-14] MEDS: Acetaminophen 650mg/20.3ml GT PRN (20:22)
--- NOTE | 2020-03-14 22:00 | NUR ---
NURSE NOTES: medications given. vital signs stable. oral suction performed.
[2020-03-15] VITALS: BP 118/58
--- NOTE | 2020-03-15 00:14 | NUR ---
NURSE NOTES: blood glucose 82. no insulin given. oral suction performed. vital signs stable
--- NOTE | 2020-03-15 01:33 | NUR ---
NURSE NOTES: bed bath performed. no BM. vital signs stable.
[2020-03-15 04:00] VITALS: BP 113/58
[2020-03-15] MEDS: Metoclopramide 10mg/2ml Inj IVP SCH ×3 (05:27→21:03)
[2020-03-15] MEDS: Renvela 800mg Pkt NG SCH ×4 (05:27→23:34)
--- NOTE | 2020-03-15 06:03 | NUR ---
NURSE NOTES: blood glucose 79. no insulin needed
--- NOTE | 2020-03-15 06:37 | Hematology/Onc Progress Note ---
Assessment/Plan Assessment/Plan # Leukocytosis, now with likely bacteremia, as per ID care --> Cxr: : Large left abiola consolidation/effusion --> wbc 30-->40-->27->30->29-->35->32-->28-->21 --> ABX angelo/vanc-->tobra/edson/vanc-->dapto/ceftazadine --> smear reviewed --> ID recs are noted # Elevated tumor markers, cea and ca 19.9 --> reviewed prior 01/27/20 cat scan a/p --> no masses noted, hold off further extensive w/u # Anemia of chronic disease due to underlying chronic medical issues, multifactorial --> Anemia workup has been reviewed, cw acd --> No evidence of hemolysis is noted, peripheral smear has been reviewed. --> Hgb goal >7. Transfuse prn. --> Epogen required in prior --> Medications have been reviewed --> low threshold for gi evaluation in case has occult + --> hgb 1.9-->5-->7.1-->8.8-->8.1->7.5-> 8.2 --> 1 unit prbc10/17, 2 units 01/15, 03/02 --> gi eval as needed # Coagulopathy with inr 1.5 --> consider vit k/ffp as needed preprocedure --> labs noted # Thrombocytopenia likely reactive v medication indcued --> plt 200-->129->91 --> r/o dic # Aortic dissection as seen on Ct ==> when stable, consider transfer hloc # JAVIER initially >2 --> on ivfs --> per renal # Elevated d-dimer, likely infection related --> venous duplex prior neg --> in prior neg # Dysphagia s/p peg --> as per gi # Thoracic aortic dissection --> s/p repair early 2017 # Chronic Resp failure -> s/p trach/vent # Psychiatric history on ativan/haldol # [place] resident # Dvt ppx --> scds The timing of this note does not necessarily reflect the time of the patient was seen. Greatly appreciate consultation. Subjective Constitutional: Denies: no symptoms, chills, fever, malaise, weakness, other Cardiovascular: Denies: no symptoms, chest pain, edema, irregular heart rate, lightheadedness, palpitations, syncope, other Respiratory: Denies: no symptoms, cough, shortness of breath, SOB with excertion, SOB at rest, sputum, wheezing, other Genitourinary: Denies: no symptoms, burning, discharge, frequency, flank pain, hematuria, incontinence, pain, urgency, other Neurologic/Psychiatric: Denies: no symptoms, anxiety, depressed, emotional problems, headache, numbness, paresthesia, pre-existing deficit, seizure, tingling, tremors, weakness, other Allergies: Coded Allergies: No Known Allergies (Unverified , 10/10/17) Subjective 03/04 for 1 unit transfusion this am as hgb remains low, wbc better 03/05 egd was done did show large nonbleeding gastric ulcer, high tumor markers 03/06 nv, with davis overnight, bp remains stable, with occult + stool, dw Rn 03/09 nv, remains stable, on vanc/tobra/edson, meds reviewed, no bleeding 03/10 nv, on vent, no bleeding, receiving abx, no night sweats 03/11 nv, dw surgeon and pcp, with aortic dissection to transfer [facility] when stable 03/12 nv, labs reviewed, wbc 21, hgb 7.5, otherwise is comfortable 03/13 nv, labs noted, no bleeding, wbc 13, hgb improved, meds reviewed 03/15 nv, meds reviewed, labs noted, no bleeding, on vent Objective Objective Current Medications Medications (Trade) Dose Ordered Sig/Penny Route PRN Reason Start Time Stop Time Status Last Admin Dose Admin Acetaminophen (Tylenol) 650 mg Q6H PRN GT Mild Pain (Pain Scale 1-3) 03/02/20 22:30 04/01/20 22:29 03/14/20 20:22 Acetaminophen (Tylenol) 650 mg Q6H PRN GT Temp >100.5 03/03/20 03:00 04/01/20 22:29 Aspirin (ASA) 81 mg DAILY GT 03/07/20 09:00 04/21/20 08:59 03/14/20 09:08 Carvedilol (Coreg) 6.25 mg EVERY 12 HOURS GT 03/14/20 21:00 04/13/20 20:59 03/14/20 20:21 Ceftazidime/ Avibactam 0.94 gm/ Dextrose 110 ml @ 110 mls/hr Q12HR IV 03/06/20 13:00 03/20/20 23:59 03/14/20 22:15 Chlorhexidine Gluconate (Ling-Hex 2%) 1 applic DAILY@2000 TOPIC 03/03/20 20:00 06/01/20 19:59 03/14/20 20:20 Daptomycin 500 mg/ Sodium Chloride 50 ml @ 100 mls/hr Q48H IV 03/10/20 13:00 03/17/20 12:59 03/14/20 12:52 Hydralazine HCl (Apresoline) 25 mg Q6H PRN GT For High Blood Pressure 03/02/20 22:00 05/31/20 21:59 Loperamide HCl (Imodium) 2 mg Q6H PRN GT Diarrhea 03/06/20 12:45 04/05/20 12:44 03/06/20 13:01 Metoclopramide HCl (Reglan) 5 mg Q8HR IVP 03/04/20 11:45 04/03/20 11:44 03/15/20 05:27 Midodrine (Pro-Amatine) 10 mg THREE TIMES A DAY GT 03/04/20 13:00 06/01/20 12:59 03/12/20 17:03 Pantoprazole (Protonix) 40 mg EVERY 12 HOURS IVP 03/04/20 21:00 04/02/20 20:59 03/14/20 20:20 Polyethylene Glycol (Miralax) 17 gm BEDTIME PRN GT Constipation 03/02/20 22:00 04/01/20 21:59 Sevelamer Carbonate (Renvela) 1,600 mg Q6HR NG 03/11/20 12:00 06/08/20 11:59 03/15/20 05:27 Sodium Hypochlorite (Dakin's Quarter Strength) 1 applic DAILY TOPIC 03/04/20 09:00 04/03/20 08:59 03/14/20 09:09 Sucralfate (Carafate) 1 gm FOUR TIMES A DAY GT 03/11/20 09:00 06/09/20 08:59 03/14/20 20:20 Tobramycin Protocol (Tobramycin pharmacy to dose) 1 ea DAILY PRN MISC Per rx protocol 03/06/20 09:15 04/05/20 09:14 Last 24 Hour Vital Signs Date Time Temp Pulse Resp B/P (MAP) Pulse Ox O2 Delivery O2 Flow Rate FiO2 03/15/20 05:24 60 16 40 03/15/20 04:00 40 03/15/20 04:00 97.0 60 17 113/58 (76) 96 03/15/20 04:00 Mechanical Ventilator 03/15/20 04:00 63 03/15/20 03:00 65 20 40 03/15/20 01:40 64 19 40 03/15/20 00:00 Mechanical Ventilator 03/15/20 00:00 97.5 60 18 118/58 (78) 96 03/15/20 00:00 40 03/15/20 00:00 66 03/14/20 23:25 64 16 40 03/14/20 21:20 68 20 40 03/14/20 20:21 66 112/69 03/14/20 20:00 Mechanical Ventilator 03/14/20 20:00 40 03/14/20 20:00 64 03/14/20 20:00 97.3 66 19 112/69 (83) 100 03/14/20 19:20 66 25 40 03/14/20 17:25 76 23 40 03/14/20 16:00 Mechanical Ventilator 03/14/20 16:00 40 03/14/20 16:00 97.0 74 22 115/54 (74) 96 03/14/20 16:00 77 03/14/20 15:30 74 24 40 03/14/20 13:26 70 21 40 03/14/20 12:00 40 03/14/20 12:00 97.5 70 20 131/72 (91) 96 03/14/20 12:00 Mechanical Ventilator 03/14/20 12:00 71 03/14/20 11:30 75 21 40 03/14/20 09:27 72 24 40 03/14/20 09:08 70 132/68 03/14/20 08:00 97.7 72 23 132/68 (89) 96 03/14/20 08:00 70 03/14/20 08:00 40 03/14/20 08:00 Mechanical Ventilator 03/14/20 07:12 72 23 40 03/14/20 04:00 98.2 77 20 136/79 (98) 100 03/14/20 04:00 Mechanical Ventilator 03/14/20 04:00 40 03/14/20 03:56 69 03/14/20 03:48 76 23 40 03/14/20 00:00 Mechanical Ventilator 03/14/20 00:00 40 03/14/20 00:00 96.3 63 20 127/64 (85) 96 03/13/20 23:44 65 20 40 03/13/20 23:34 66 03/13/20 20:15 61 118/59 03/13/20 20:00 40 03/13/20 20:00 Mechanical Ventilator 03/13/20 20:00 96.6 64 20 118/59 (78) 96 03/13/20 19:42 65 03/13/20 19:09 67 20 40 03/13/20 16:00 Mechanical Ventilator 03/13/20 16:00 40 03/13/20 16:00 96.0 75 20 134/76 (95) 96 03/13/20 16:00 73 03/13/20 14:30 71 20 40 03/13/20 12:00 65 03/13/20 12:00 Mechanical Ventilator 03/13/20 12:00 40 03/13/20 12:00 96.5 65 20 123/68 (86) 100 03/13/20 10:40 66 19 40 03/13/20 08:17 65 129/66 03/13/20 08:00 Mechanical Ventilator 03/13/20 08:00 40 03/13/20 08:00 97.0 65 18 129/66 (87) 100 03/13/20 07:50 67 03/13/20 06:40 65 18 40 Intake and Output 03/14/20 03/15/20 19:00 07:00 Intake Total 720 ml 385 ml Balance 720 ml 385 ml Intake Free Water 140 ml IV Total 160 ml Tube Feeding 420 ml 385 ml Labs Test 03/12/20 07:18 03/12/20 12:36 03/12/20 18:05 03/12/20 23:53 POC Whole Blood Glucose 83 MG/DL (74-106) 86 MG/DL (74-106) 88 MG/DL (74-106) Test 03/13/20 05:27 03/13/20 06:13 03/13/20 12:36 03/13/20 19:07 White Blood Count 13.4 K/UL (4.8-10.8) Red Blood Count 2.72 M/UL (4.20-5.40) Hemoglobin 8.2 G/DL (12.0-16.0) Hematocrit 23.9 % (37.0-47.0) Mean Corpuscular Volume 88 FL (80-99) Mean Corpuscular Hemoglobin 30.3 PG (27.0-31.0) Mean Corpuscular Hemoglobin Concent 34.4 G/DL (32.0-36.0) Red Cell Distribution Width 14.9 % (11.6-14.8) Platelet Count 68 K/UL (150-450) Mean Platelet Volume 11.2 FL (6.5-10.1) Neutrophils (%) (Auto) % (45.0-75.0) Lymphocytes (%) (Auto) % (20.0-45.0) Monocytes (%) (Auto) % (1.0-10.0) Eosinophils (%) (Auto) % (0.0-3.0) Basophils (%) (Auto) % (0.0-2.0) Differential Total Cells Counted 100 Neutrophils % (Manual) 84 % (45-75) Lymphocytes % (Manual) 10 % (20-45) Monocytes % (Manual) 4 % (1-10) Eosinophils % (Manual) 2 % (0-3) Basophils % (Manual) 0 % (0-2) Band Neutrophils 0 % (0-8) Platelet Estimate Decreased Platelet Morphology Normal Hypochromasia 1+ Anisocytosis 1+ Sodium Level 133 MMOL/L (136-145) Potassium Level 3.5 MMOL/L (3.5-5.1) Chloride Level 97 MMOL/L (98-107) Carbon Dioxide Level 22 MMOL/L (21-32) Anion Gap 14 mmol/L (5-15) Blood Urea Nitrogen 90 mg/dL (7-18) Creatinine 2.6 MG/DL (0.55-1.30) Estimat Glomerular Filtration Rate 19.7 mL/min (>60) Glucose Level 80 MG/DL (74-106) Calcium Level 6.5 MG/DL (8.5-10.1) Phosphorus Level 5.7 MG/DL (2.5-4.9) Magnesium Level 2.2 MG/DL (1.8-2.4) Total Bilirubin 0.3 MG/DL (0.2-1.0) Aspartate Amino Transf (AST/SGOT) 48 U/L (15-37) Alanine Aminotransferase (ALT/SGPT) 28 U/L (12-78) Alkaline Phosphatase 113 U/L (46-116) Total Creatine Kinase 173 U/L (26-308) C-Reactive Protein, Quantitative 9.1 mg/dL (0.00-0.90) Pro-B-Type Natriuretic Peptide > 04899 pg/mL (0-125) Total Protein 5.2 G/DL (6.4-8.2) Albumin 1.6 G/DL (3.4-5.0) Globulin 3.6 g/dL Albumin/Globulin Ratio 0.4 (1.0-2.7) POC Whole Blood Glucose 78 MG/DL (74-106) 82 MG/DL (74-106) 66 MG/DL (74-106) Test 03/13/20 19:38 03/13/20 21:11 03/13/20 23:44 03/14/20 05:47 POC Whole Blood Glucose 65 MG/DL (74-106) 133 MG/DL (74-106) 122 MG/DL (74-106) Test 03/14/20 12:31 03/14/20 18:55 03/15/20 00:06 03/15/20 04:02 POC Whole Blood Glucose 89 MG/DL (74-106) 80 MG/DL (74-106) 82 MG/DL (74-106) Test 03/15/20 05:57 POC Whole Blood Glucose 79 MG/DL (74-106) Height (Feet): 5 Height (Inches): 3.00 Weight (Pounds): 128 Objective Physical Exam: Vitals: reviewed General: NAD HEENT: nc, at Neck: supple ++trach/vent Chest: clear breath sounds bilaterally Cardiovascular: RRR, no s3, s4 Abdomen: soft, nontender, nd +gtube Extremities: no cce, normal range of motion Neuro: alert Evan Muhammad MD Mar 15, 2020 06:37
[2020-03-15 06:49] LABS: HEMATOCRIT 21.9 % (37.0-47.0); HEMOGLOBIN 7.4 G/DL (12.0-16.0); MEAN CORPUSCULAR VOLUME 88 FL (80-99); PLATELET COUNT 82 K/UL (150-450); RED BLOOD COUNT 2.49 M/UL (4.20-5.40); WHITE BLOOD COUNT 9.4 K/UL (4.8-10.8)
--- NOTE | 2020-03-15 07:00 | NUR ---
NURSE HAND-OFF REPORT: Important Events on Shift: patient remains stable Patient Status: FULL CODE Diet: Nepro @35 Pending Orders: [] Pending Results/Labs:[] Pending MD notification:[] Latest Vital Signs: Temperature 97.0 , Pulse 60 , B/P 113 /58 , Respiratory Rate 16 , O2 SAT 96 , Mechanical Ventilator, O2 Flow Rate . Vital Sign Comment: [] EKG Rhythm: Sinus Rhythm Rhythm change?: N MD Notified?: N -Dr Екатерина HATFIELD Response: No New Orders Received Latest [place] Fall Score: 50 Fall Risk: High Risk Safety Measures: Call light Within Reach, Bed Alarm Zone 1, Side Rails Side Rails x2, Bed position Low and Locked. Fall Precautions: Yellow Socks Report given to ERASMO Locke.
[2020-03-15 07:18] LABS: ALANINE AMINOTRANSFERASE 20 U/L (12-78); ALBUMIN 1.5 G/DL (3.4-5.0); ALBUMIN/GLOBULIN RATIO 0.4 (1.0-2.7); ALKALINE PHOSPHATASE 101 U/L (46-116); ANION GAP 14 mmol/L (5-15); ASPARTATE AMINO TRANSFERASE 35 U/L (15-37); BILIRUBIN,TOTAL 0.5 MG/DL (0.2-1.0); BLOOD UREA NITROGEN 79 mg/dL (7-18); CALCIUM 6.1 MG/DL (8.5-10.1); CARBON DIOXIDE 23 MMOL/L (21-32); CHLORIDE 94 MMOL/L (98-107); CREATININE 2.3 MG/DL (0.55-1.30); POTASSIUM 3.5 MMOL/L (3.5-5.1); SODIUM 131 MMOL/L (136-145)
--- NOTE | 2020-03-15 07:37 | NUR ---
NURSE NOTES: received patient report from amanuel ramesh. patient is on bed asleep, not in acute distress, trache to vent noted. on nepro at 35ml per no acute events reported last night, wound care per order. will follow plan of care.
[2020-03-15 08:00] VITALS: BP 111/56
[2020-03-15] MEDS: Carvedilol 6.25mg Tab GT SCH ×2 (08:27→21:02)
[2020-03-15] MEDS: Aspirin Baby 81mg GT SCH (08:28)
[2020-03-15] MEDS: Pantoprazole Inj IVP SCH ×2 (08:28→21:03)
[2020-03-15] MEDS: Sucralfate 1gm tab GT SCH ×4 (08:28→21:02)
[2020-03-15] MEDS: Midodrine 10mg tab GT SCH ×3 (08:28→16:40)
[2020-03-15] MEDS: D5W IV SCH ×2 (08:29→22:23)
[2020-03-15] MEDS: CEFTAZIDIME IV SCH ×2 (08:29→22:23)
[2020-03-15] MEDS: Dakin's 0.125% Soln (Quarter Strength) 16oz TOPIC SCH (08:29)
[2020-03-15] MEDS: AVIBACTAM IV SCH ×2 (08:29→22:23)
--- NOTE | 2020-03-15 09:25 | Pulmonology Progress Note ---
Subjective ROS Limited/Unobtainable: Yes Interval Events: due for dialysis today, s/p transfusion HEENT: Repors: no symptoms Respiratory: Reports: no symptoms Cardiovascular: Reports: no symptoms Gastrointestinal/Abdominal: Reports: diarrhea Allergies: Coded Allergies: No Known Allergies (Unverified , 10/10/17) All Systems: reviewed and negative except above Objective Last 24 Hour Vital Signs Date Time Temp Pulse Resp B/P (MAP) Pulse Ox O2 Delivery O2 Flow Rate FiO2 03/15/20 08:27 61 111/56 03/15/20 08:00 60 03/15/20 08:00 97.5 61 18 111/56 (74) 97 03/15/20 08:00 Mechanical Ventilator 03/15/20 08:00 40 03/15/20 05:24 60 16 40 03/15/20 04:00 40 03/15/20 04:00 97.0 60 17 113/58 (76) 96 03/15/20 04:00 Mechanical Ventilator 03/15/20 04:00 63 03/15/20 03:00 65 20 40 03/15/20 01:40 64 19 40 03/15/20 00:00 Mechanical Ventilator 03/15/20 00:00 97.5 60 18 118/58 (78) 96 03/15/20 00:00 40 03/15/20 00:00 66 03/14/20 23:25 64 16 40 03/14/20 21:20 68 20 40 03/14/20 20:21 66 112/69 03/14/20 20:00 Mechanical Ventilator 03/14/20 20:00 40 03/14/20 20:00 64 03/14/20 20:00 97.3 66 19 112/69 (83) 100 03/14/20 19:20 66 25 40 03/14/20 17:25 76 23 40 03/14/20 16:00 Mechanical Ventilator 03/14/20 16:00 40 03/14/20 16:00 97.0 74 22 115/54 (74) 96 03/14/20 16:00 77 03/14/20 15:30 74 24 40 03/14/20 13:26 70 21 40 03/14/20 12:00 40 03/14/20 12:00 97.5 70 20 131/72 (91) 96 03/14/20 12:00 Mechanical Ventilator 03/14/20 12:00 71 03/14/20 11:30 75 21 40 03/14/20 09:27 72 24 40 Intake and Output 03/14/20 03/15/20 19:00 07:00 Intake Total 720 ml 385 ml Balance 720 ml 385 ml Intake Free Water 140 ml IV Total 160 ml Tube Feeding 420 ml 385 ml General Appearance: no acute distress HEENT: atraumatic Respiratory: lungs clear Cardiovascular: normal rate, regular rhythm Extremities: other - edema bilateral Laboratory Tests 03/14/20 12:31: POC Whole Blood Glucose 89 03/14/20 18:55: POC Whole Blood Glucose 80 03/15/20 00:06: POC Whole Blood Glucose 82 03/15/20 04:02: White Blood Count 9.4, Red Blood Count 2.49L, Hemoglobin 7.4L, Hematocrit 21.9L, Mean Corpuscular Volume 88, Mean Corpuscular Hemoglobin 29.8, Mean Corpuscular Hemoglobin Concent 33.9, Red Cell Distribution Width 15.0H, Platelet Count 82L, Mean Platelet Volume 10.8H, Neutrophils (%) (Auto) , Lymphocytes (%) (Auto) , Monocytes (%) (Auto) , Eosinophils (%) (Auto) , Basophils (%) (Auto) , Differential Total Cells Counted 100, Neutrophils % (Manual) 85H, Lymphocytes % (Manual) 10L, Monocytes % (Manual) 2, Eosinophils % (Manual) 3, Basophils % (Manual) 0, Band Neutrophils 0, Platelet Estimate DecreasedL, Platelet Morphology Normal, Hypochromasia 1+, Anisocytosis 1+, Sodium Level 131L, Potassium Level 3.5, Chloride Level 94L, Carbon Dioxide Level 23, Anion Gap 14, Blood Urea Nitrogen 79H, Creatinine 2.3H, Estimat Glomerular Filtration Rate 22.7, Glucose Level 75, Calcium Level 6.1L, Phosphorus Level 4.0, Magnesium Level 1.8, Total Bilirubin 0.5, Aspartate Amino Transf (AST/SGOT) 35, Alanine Aminotransferase (ALT/SGPT) 20, Alkaline Phosphatase 101, C-Reactive Protein, Quantitative 8.3H, Pro-B-Type Natriuretic Peptide > 62915G, Total Protein 4.9L, Albumin 1.5L, Globulin 3.4, Albumin/Globulin Ratio 0.4L 03/15/20 05:57: POC Whole Blood Glucose 79 Current Medications Medications (Trade) Dose Ordered Sig/Penny Route PRN Reason Start Time Stop Time Status Last Admin Dose Admin Acetaminophen (Tylenol) 650 mg Q6H PRN GT Mild Pain (Pain Scale 1-3) 03/02/20 22:30 04/01/20 22:29 03/14/20 20:22 Acetaminophen (Tylenol) 650 mg Q6H PRN GT Temp >100.5 03/03/20 03:00 04/01/20 22:29 Aspirin (ASA) 81 mg DAILY GT 03/07/20 09:00 04/21/20 08:59 03/14/20 09:08 Carvedilol (Coreg) 6.25 mg EVERY 12 HOURS GT 03/14/20 21:00 04/13/20 20:59 03/15/20 08:27 Ceftazidime/ Avibactam 0.94 gm/ Dextrose 110 ml @ 110 mls/hr Q12HR IV 03/06/20 13:00 03/20/20 23:59 03/15/20 08:29 Chlorhexidine Gluconate (Ling-Hex 2%) 1 applic DAILY@2000 TOPIC 03/03/20 20:00 06/01/20 19:59 03/14/20 20:20 Daptomycin 500 mg/ Sodium Chloride 50 ml @ 100 mls/hr Q48H IV 03/10/20 13:00 03/17/20 12:59 03/14/20 12:52 Dextrose (Dextrose 50%) 25 ml Q30M PRN IV Hypoglycemia 03/15/20 07:30 06/13/20 07:29 Dextrose (Dextrose 50%) 50 ml Q30M PRN IV Hypoglycemia 03/15/20 07:30 06/13/20 07:29 Hydralazine HCl (Apresoline) 25 mg Q6H PRN GT For High Blood Pressure 03/02/20 22:00 05/31/20 21:59 Loperamide HCl (Imodium) 2 mg Q6H PRN GT Diarrhea 03/06/20 12:45 04/05/20 12:44 03/06/20 13:01 Metoclopramide HCl (Reglan) 5 mg Q8HR IVP 03/04/20 11:45 04/03/20 11:44 03/15/20 05:27 Midodrine (Pro-Amatine) 10 mg THREE TIMES A DAY GT 03/04/20 13:00 06/01/20 12:59 03/15/20 08:28 Pantoprazole (Protonix) 40 mg EVERY 12 HOURS IVP 03/04/20 21:00 04/02/20 20:59 03/15/20 08:28 Polyethylene Glycol (Miralax) 17 gm BEDTIME PRN GT Constipation 03/02/20 22:00 04/01/20 21:59 Sevelamer Carbonate (Renvela) 1,600 mg Q6HR NG 03/11/20 12:00 06/08/20 11:59 03/15/20 05:27 Sodium Hypochlorite (Dakin's Quarter Strength) 1 applic DAILY TOPIC 03/04/20 09:00 04/03/20 08:59 03/15/20 08:29 Sucralfate (Carafate) 1 gm FOUR TIMES A DAY GT 03/11/20 09:00 06/09/20 08:59 03/15/20 08:28 Tobramycin Protocol (Tobramycin pharmacy to dose) 1 ea DAILY PRN MISC Per rx protocol 03/06/20 09:15 04/05/20 09:14 Assessment/Plan Assessment/Plan 1. Chronic respiratory failure. - CT chest/abd/pelv: improving pleural effusion 2. Mechanical ventilation. - current setting at AC 14, Vt 500, FiO2 40%, PEEP 5 saturating at 96% - continue current setting - suction secretions as needed 3. Chronic tracheostomy. 4. Chronic G-tube. 5. Anemia. - s/p transfusion - stool OB positive - off anticoags 6. Renal failure. 7. Leukocytosis and sepsis. - WBC now resolved 8. Sepsis UTI 9. Gram positive cocci bacteremia - f/u BCx negative for growth 10. COVID-19 negative 11. Diarrhea - C. diff neg 12. Hypoglycemia - resolved 13. Bradycardia - no urgent indication for pacemaker per cardio 14. Gastric ulcer - on PPI - GI following 15. Pleural effusion - small; insufficient volume for safe thoracentesis 16. thoracic aortic aneurysm - noted on CT imaging - pt needs emergent transfer out to [facility] for CT surgery evaluation, primary MD aware - Pt might not be a candidate for TAA repair We will follow carefully. ID and Hematology following. The care for this patient was discussed with my supervising physician Time spent for this case was approximately 31 minutes Cruz Wilson Mar 15, 2020 09:25
--- NOTE | 2020-03-15 11:00 | NUR ---
INSURANCE CLINCALS FAXED TO [facility] T: [phone] F: [phone]
[2020-03-15 12:00] VITALS: BP 127/76
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
--- NOTE | 2020-03-15 14:07 | Nephrology Progress Note ---
Assessment/Plan Problem List: (1) Renal failure (ARF), acute on chronic (2) Anemia (3) Hyponatremia (4) Respiratory failure Assessment (1) JAVIER (acute kidney injury) (2) Renal failure (ARF), acute on chronic (3) Feeding by G-tube (4) Tracheostomy in place (5) Electrolyte imbalance, hyponatremia (6) Anemia, severe (7) Respiratory failure, acute and chronic (8) history of elevated lipase, pancreatitis (9) Elevated troponin I (10) Sepsis Plan March 15: Labs reviewed. Dialyzed March 13. Due for dialysis March 16. Hemoglobin lower. 1 unit of packed RBCs ordered. Per orders. March 14: No labs drawn today. Dialyzed yesterday. Full code. Will check lab tomorrow. Dialysis as needed. March 13: Labs reviewed. Due for dialysis today. Patient remains full code. Continue per current management. March 12: Labs reviewed. Dialyzed yesterday. Due for dialysis tomorrow. Discussed with RN. Patient full code. Continue per current management. March 11: Labs reviewed. Dialyzed this morning. Phosphorus binders dose adjusted. Continue per consultants. Continue to monitor renal parameters. CT: Extensive thoracoabdominal aortic dissection March 10: Labs reviewed. Will order dialysis tomorrow. Phosphorus binders added. Continue per consultants. March 09: No chemistry panel done today. Patient dialyzed yesterday. On dextrose 10% for hypoglycemia. We will check labs tomorrow. Dialysis as needed. March 08: Labs reviewed. Will order dialysis today. Blood sugar low. D10 50 cc an hour started. Continue as is. March 07: Labs reviewed. Dialyzed March 05 and March 06. Continue to monitor renal parameters and hemoglobin. Abnormal electrolytes addressed. IV fluids stopped. Per orders. March 06: Labs reviewed. Dialyzed yesterday. Will reorder dialysis for today. Continue to monitor renal parameters. Hemoglobin 8.4. Patient full code. March 05: Labs reviewed. Patient did not receive dialysis until this morning. Proceed with dialysis. Continue to monitor renal parameters and hemoglobin and hematocrit. March 04: Labs reviewed. Hemoglobin lower. Patient actively bleeding. Was not dialyzed yesterday. Due for GI endoscopy. Continue fluid challenge. Transfusion as needed. Dialysis today. March 03: Labs reviewed. Dialysis ordered. Blood pressure medication all discontinued due to hypotensive state. Albumin bolus given. Continue to monitor renal parameters. Medication list reviewed. Midodrin for low blood pressure ordered Subjective ROS Limited/Unobtainable: Yes Objective Objective Last 24 Hour Vital Signs Date Time Temp Pulse Resp B/P (MAP) Pulse Ox O2 Delivery O2 Flow Rate FiO2 03/15/20 12:00 63 03/15/20 12:00 97.0 55 20 127/76 (93) 94 03/15/20 12:00 Mechanical Ventilator 03/15/20 12:00 40 03/15/20 08:27 61 111/56 03/15/20 08:00 60 03/15/20 08:00 97.5 61 18 111/56 (74) 97 03/15/20 08:00 Mechanical Ventilator 03/15/20 08:00 40 03/15/20 05:24 60 16 40 03/15/20 04:00 40 03/15/20 04:00 97.0 60 17 113/58 (76) 96 03/15/20 04:00 Mechanical Ventilator 03/15/20 04:00 63 03/15/20 03:00 65 20 40 03/15/20 01:40 64 19 40 03/15/20 00:00 Mechanical Ventilator 03/15/20 00:00 97.5 60 18 118/58 (78) 96 03/15/20 00:00 40 03/15/20 00:00 66 03/14/20 23:25 64 16 40 03/14/20 21:20 68 20 40 03/14/20 20:21 66 112/69 03/14/20 20:00 Mechanical Ventilator 03/14/20 20:00 40 03/14/20 20:00 64 03/14/20 20:00 97.3 66 19 112/69 (83) 100 03/14/20 19:20 66 25 40 03/14/20 17:25 76 23 40 03/14/20 16:00 Mechanical Ventilator 03/14/20 16:00 40 03/14/20 16:00 97.0 74 22 115/54 (74) 96 03/14/20 16:00 77 03/14/20 15:30 74 24 40 Intake and Output 03/14/20 03/15/20 19:00 07:00 Intake Total 720 ml 385 ml Balance 720 ml 385 ml Intake Free Water 140 ml IV Total 160 ml Tube Feeding 420 ml 385 ml Current Medications Medications (Trade) Dose Ordered Sig/Penny Route PRN Reason Start Time Stop Time Status Last Admin Dose Admin Acetaminophen (Tylenol) 650 mg Q6H PRN GT Mild Pain (Pain Scale 1-3) 03/02/20 22:30 04/01/20 22:29 03/14/20 20:22 Acetaminophen (Tylenol) 650 mg Q6H PRN GT Temp >100.5 03/03/20 03:00 04/01/20 22:29 Aspirin (ASA) 81 mg DAILY GT 03/07/20 09:00 04/21/20 08:59 03/14/20 09:08 Carvedilol (Coreg) 6.25 mg EVERY 12 HOURS GT 03/14/20 21:00 04/13/20 20:59 03/15/20 08:27 Ceftazidime/ Avibactam 0.94 gm/ Dextrose 110 ml @ 110 mls/hr Q12HR IV 03/06/20 13:00 03/20/20 23:59 03/15/20 08:29 Chlorhexidine Gluconate (Ling-Hex 2%) 1 applic DAILY@2000 TOPIC 03/03/20 20:00 06/01/20 19:59 03/14/20 20:20 Daptomycin 500 mg/ Sodium Chloride 50 ml @ 100 mls/hr Q48H IV 03/10/20 13:00 03/17/20 12:59 03/14/20 12:52 Dextrose (Dextrose 50%) 25 ml Q30M PRN IV Hypoglycemia 03/15/20 07:30 06/13/20 07:29 Dextrose (Dextrose 50%) 50 ml Q30M PRN IV Hypoglycemia 03/15/20 07:30 06/13/20 07:29 Hydralazine HCl (Apresoline) 25 mg Q6H PRN GT For High Blood Pressure 03/02/20 22:00 05/31/20 21:59 Loperamide HCl (Imodium) 2 mg Q6H PRN GT Diarrhea 03/06/20 12:45 04/05/20 12:44 03/06/20 13:01 Metoclopramide HCl (Reglan) 5 mg Q8HR IVP 03/04/20 11:45 04/03/20 11:44 03/15/20 13:09 Midodrine (Pro-Amatine) 10 mg THREE TIMES A DAY GT 03/04/20 13:00 06/01/20 12:59 03/15/20 08:28 Pantoprazole (Protonix) 40 mg EVERY 12 HOURS IVP 03/04/20 21:00 04/02/20 20:59 03/15/20 08:28 Polyethylene Glycol (Miralax) 17 gm BEDTIME PRN GT Constipation 03/02/20 22:00 04/01/20 21:59 Sevelamer Carbonate (Renvela) 1,600 mg Q6HR NG 03/11/20 12:00 06/08/20 11:59 03/15/20 11:08 Sodium Hypochlorite (Dakin's Quarter Strength) 1 applic DAILY TOPIC 03/04/20 09:00 04/03/20 08:59 03/15/20 08:29 Sucralfate (Carafate) 1 gm FOUR TIMES A DAY GT 03/11/20 09:00 06/09/20 08:59 03/15/20 12:20 Tobramycin Protocol (Tobramycin pharmacy to dose) 1 ea DAILY PRN MISC Per rx protocol 03/06/20 09:15 04/05/20 09:14 Laboratory Tests 03/14/20 18:55: POC Whole Blood Glucose 80 03/15/20 00:06: POC Whole Blood Glucose 82 03/15/20 04:02: White Blood Count 9.4, Red Blood Count 2.49L, Hemoglobin 7.4L, Hematocrit 21.9L, Mean Corpuscular Volume 88, Mean Corpuscular Hemoglobin 29.8, Mean Corpuscular Hemoglobin Concent 33.9, Red Cell Distribution Width 15.0H, Platelet Count 82L, Mean Platelet Volume 10.8H, Neutrophils (%) (Auto) , Lymphocytes (%) (Auto) , Monocytes (%) (Auto) , Eosinophils (%) (Auto) , Basophils (%) (Auto) , Differential Total Cells Counted 100, Neutrophils % (Manual) 85H, Lymphocytes % (Manual) 10L, Monocytes % (Manual) 2, Eosinophils % (Manual) 3, Basophils % (Manual) 0, Band Neutrophils 0, Platelet Estimate DecreasedL, Platelet Morphology Normal, Hypochromasia 1+, Anisocytosis 1+, Sodium Level 131L, Potassium Level 3.5, Chloride Level 94L, Carbon Dioxide Level 23, Anion Gap 14, Blood Urea Nitrogen 79H, Creatinine 2.3H, Estimat Glomerular Filtration Rate 22 .7, Glucose Level 75, Calcium Level 6.1L, Phosphorus Level 4.0, Magnesium Level 1.8, Total Bilirubin 0.5, Aspartate Amino Transf (AST/SGOT) 35, Alanine Aminotransferase (ALT/SGPT) 20, Alkaline Phosphatase 101, C-Reactive Protein, Quantitative 8.3H, Pro-B-Type Natriuretic Peptide > 57075U, Total Protein 4.9L, Albumin 1.5L, Globulin 3.4, Albumin/Globulin Ratio 0.4L 03/15/20 05:57: POC Whole Blood Glucose 79 03/15/20 11:55: POC Whole Blood Glucose 85 Height (Feet): 5 Height (Inches): 3.00 Weight (Pounds): 128 General Appearance: no apparent distress EENT: other - Trach to vent Cardiovascular: normal rate Respiratory/Chest: decreased breath sounds Abdomen: distended Johnny Houston MD Mar 15, 2020 14:07
--- NOTE | 2020-03-15 15:43 | Cardiology Progress Note ---
Subjective DATE OF SERVICE: Mar 15, 2020 Heart rates remain in stable range; carvedilol dose advanced slightly yesterday in view of aortic dissection. BP parameters stable. CT scan now reveals extensive thoracoabd aortic dissection. Dialysis per renal; last session was 03/13/20 Objective Last 24 Hour Vital Signs Date Time Temp Pulse Resp B/P (MAP) Pulse Ox O2 Delivery O2 Flow Rate FiO2 03/15/20 13:28 61 16 40 03/15/20 12:00 63 03/15/20 12:00 97.0 55 20 127/76 (93) 94 03/15/20 12:00 Mechanical Ventilator 03/15/20 12:00 40 03/15/20 11:03 62 18 40 03/15/20 08:54 60 17 40 03/15/20 08:27 61 111/56 03/15/20 08:00 60 03/15/20 08:00 97.5 61 18 111/56 (74) 97 03/15/20 08:00 Mechanical Ventilator 03/15/20 08:00 40 03/15/20 07:10 61 17 40 03/15/20 05:24 60 16 40 03/15/20 04:00 40 03/15/20 04:00 97.0 60 17 113/58 (76) 96 03/15/20 04:00 Mechanical Ventilator 03/15/20 04:00 63 03/15/20 03:00 65 20 40 03/15/20 01:40 64 19 40 03/15/20 00:00 Mechanical Ventilator 03/15/20 00:00 97.5 60 18 118/58 (78) 96 03/15/20 00:00 40 03/15/20 00:00 66 03/14/20 23:25 64 16 40 03/14/20 21:20 68 20 40 03/14/20 20:21 66 112/69 03/14/20 20:00 Mechanical Ventilator 03/14/20 20:00 40 03/14/20 20:00 64 03/14/20 20:00 97.3 66 19 112/69 (83) 100 03/14/20 19:20 66 25 40 03/14/20 17:25 76 23 40 03/14/20 16:00 Mechanical Ventilator 03/14/20 16:00 40 03/14/20 16:00 97.0 74 22 115/54 (74) 96 03/14/20 16:00 77 HEENT: Thin Trach secretions RHYTHM: NSR, SB LUNGS: bilateral rhonchi - few, trach site clean CARDIAC: normal rate, regular rhythm, normal S1 and S2 ABDOMEN: normal bowel sounds, non tender, soft, G-Tube intact EXTREMITIES: normal range of motion, non-tender, normal inspection Laboratory Tests Test 03/14/20 18:55 03/15/20 00:06 03/15/20 04:02 03/15/20 05:57 POC Whole Blood Glucose 80 MG/DL (74-106) 82 MG/DL (74-106) 79 MG/DL (74-106) White Blood Count 9.4 K/UL (4.8-10.8) Red Blood Count 2.49 M/UL (4.20-5.40) L Hemoglobin 7.4 G/DL (12.0-16.0) L Hematocrit 21.9 % (37.0-47.0) L Mean Corpuscular Volume 88 FL (80-99) Mean Corpuscular Hemoglobin 29.8 PG (27.0-31.0) Mean Corpuscular Hemoglobin Concent 33.9 G/DL (32.0-36.0) Red Cell Distribution Width 15.0 % (11.6-14.8) H Platelet Count 82 K/UL (150-450) L Mean Platelet Volume 10.8 FL (6.5-10.1) H Neutrophils (%) (Auto) % (45.0-75.0) Lymphocytes (%) (Auto) % (20.0-45.0) Monocytes (%) (Auto) % (1.0-10.0) Eosinophils (%) (Auto) % (0.0-3.0) Basophils (%) (Auto) % (0.0-2.0) Differential Total Cells Counted 100 Neutrophils % (Manual) 85 % (45-75) H Lymphocytes % (Manual) 10 % (20-45) L Monocytes % (Manual) 2 % (1-10) Eosinophils % (Manual) 3 % (0-3) Basophils % (Manual) 0 % (0-2) Band Neutrophils 0 % (0-8) Platelet Estimate Decreased L Platelet Morphology Normal Hypochromasia 1+ Anisocytosis 1+ Sodium Level 131 MMOL/L (136-145) L Potassium Level 3.5 MMOL/L (3.5-5.1) Chloride Level 94 MMOL/L (98-107) L Carbon Dioxide Level 23 MMOL/L (21-32) Anion Gap 14 mmol/L (5-15) Blood Urea Nitrogen 79 mg/dL (7-18) H Creatinine 2.3 MG/DL (0.55-1.30) H Estimat Glomerular Filtration Rate 22.7 mL/min (>60) Glucose Level 75 MG/DL (74-106) Calcium Level 6.1 MG/DL (8.5-10.1) L Phosphorus Level 4.0 MG/DL (2.5-4.9) Magnesium Level 1.8 MG/DL (1.8-2.4) Total Bilirubin 0.5 MG/DL (0.2-1.0) Aspartate Amino Transf (AST/SGOT) 35 U/L (15-37) Alanine Aminotransferase (ALT/SGPT) 20 U/L (12-78) Alkaline Phosphatase 101 U/L (46-116) C-Reactive Protein, Quantitative 8.3 mg/dL (0.00-0.90) H Pro-B-Type Natriuretic Peptide > 27169 pg/mL (0-125) H Total Protein 4.9 G/DL (6.4-8.2) L Albumin 1.5 G/DL (3.4-5.0) L Globulin 3.4 g/dL Albumin/Globulin Ratio 0.4 (1.0-2.7) L Test 03/15/20 11:55 POC Whole Blood Glucose 85 MG/DL (74-106) Assessment/Plan Assessment/Plan Aortic dissections Sepsis with recovered shock Sinus node disease with bradycardia Hx pacemaker explant Ischemic cardiomyopathy - hx CABG? 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 HD/UF per renal Needs higher level of care ultimately for repair of aortic dissection, although may not be a surgical candidate Deni Willams MD Mar 15, 2020 15:43
[2020-03-15 16:00] VITALS: BP 115/66
--- NOTE | 2020-03-15 17:32 | General Progress Note ---
Subjective Constitutional: Reports: no symptoms HEENT: Reports: no symptoms Cardiovascular: Reports: no symptoms Respiratory: Reports: no symptoms Gastrointestinal/Abdominal: Reports: no symptoms Neurologic/Psychiatric: Reports: emotional problems, other - Depressed and tearful Endocrine: Reports: no symptoms Hematologic/Lymphatic: Reports: no symptoms Allergies: Coded Allergies: No Known Allergies (Unverified , 10/10/17) Objective Last 24 Hour Vital Signs Date Time Temp Pulse Resp B/P (MAP) Pulse Ox O2 Delivery O2 Flow Rate FiO2 03/15/20 16:00 Mechanical Ventilator 03/15/20 16:00 40 03/15/20 16:00 97.2 58 21 115/66 (82) 98 03/15/20 15:53 58 03/15/20 13:28 61 16 40 03/15/20 12:00 63 03/15/20 12:00 97.0 55 20 127/76 (93) 94 03/15/20 12:00 Mechanical Ventilator 03/15/20 12:00 40 03/15/20 11:03 62 18 40 03/15/20 08:54 60 17 40 03/15/20 08:27 61 111/56 03/15/20 08:00 60 03/15/20 08:00 97.5 61 18 111/56 (74) 97 03/15/20 08:00 Mechanical Ventilator 03/15/20 08:00 40 03/15/20 07:10 61 17 40 03/15/20 05:24 60 16 40 03/15/20 04:00 40 03/15/20 04:00 97.0 60 17 113/58 (76) 96 03/15/20 04:00 Mechanical Ventilator 03/15/20 04:00 63 03/15/20 03:00 65 20 40 03/15/20 01:40 64 19 40 03/15/20 00:00 Mechanical Ventilator 03/15/20 00:00 97.5 60 18 118/58 (78) 96 03/15/20 00:00 40 03/15/20 00:00 66 03/14/20 23:25 64 16 40 03/14/20 21:20 68 20 40 03/14/20 20:21 66 112/69 03/14/20 20:00 Mechanical Ventilator 03/14/20 20:00 40 03/14/20 20:00 64 03/14/20 20:00 97.3 66 19 112/69 (83) 100 03/14/20 19:20 66 25 40 Intake and Output 03/14/20 03/15/20 19:00 07:00 Intake Total 720 ml 385 ml Balance 720 ml 385 ml Intake Free Water 140 ml IV Total 160 ml Tube Feeding 420 ml 385 ml Laboratory Tests 03/14/20 18:55: POC Whole Blood Glucose 80 03/15/20 00:06: POC Whole Blood Glucose 82 03/15/20 04:02: White Blood Count 9.4, Red Blood Count 2.49L, Hemoglobin 7.4L, Hematocrit 21.9L, Mean Corpuscular Volume 88, Mean Corpuscular Hemoglobin 29.8, Mean Corpuscular Hemoglobin Concent 33.9, Red Cell Distribution Width 15.0H, Platelet Count 82L, Mean Platelet Volume 10.8H, Neutrophils (%) (Auto) , Lymphocytes (%) (Auto) , Monocytes (%) (Auto) , Eosinophils (%) (Auto) , Basophils (%) (Auto) , Differential Total Cells Counted 100, Neutrophils % (Manual) 85H, Lymphocytes % (Manual) 10L, Monocytes % (Manual) 2, Eosinophils % (Manual) 3, Basophils % (Manual) 0, Band Neutrophils 0, Platelet Estimate DecreasedL, Platelet Morphology Normal, Hypochromasia 1+, Anisocytosis 1+, Sodium Level 131L, Potassium Level 3.5, Chloride Level 94L, Carbon Dioxide Level 23, Anion Gap 14, Blood Urea Nitrogen 79H, Creatinine 2.3H, Estimat Glomerular Filtration Rate 22 .7, Glucose Level 75, Calcium Level 6.1L, Phosphorus Level 4.0, Magnesium Level 1.8, Total Bilirubin 0.5, Aspartate Amino Transf (AST/SGOT) 35, Alanine Aminotransferase (ALT/SGPT) 20, Alkaline Phosphatase 101, C-Reactive Protein, Quantitative 8.3H, Pro-B-Type Natriuretic Peptide > 90120H, Total Protein 4.9L, Albumin 1.5L, Globulin 3.4, Albumin/Globulin Ratio 0.4L 03/15/20 05:57: POC Whole Blood Glucose 79 03/15/20 11:55: POC Whole Blood Glucose 85 03/15/20 16:57: POC Whole Blood Glucose 86 Height (Feet): 5 Height (Inches): 3.00 Weight (Pounds): 128 General Appearance: WD/WN, no apparent distress, alert EENT: normal ENT inspection Neck: supple Cardiovascular: normal rate, regular rhythm, no gallop/murmur, no JVD Respiratory/Chest: decreased breath sounds, rhonchi - bilaterally Abdomen: normal bowel sounds, non tender, soft, no organomegaly, no mass Extremities: non-tender Edema: 2+ Leg (L), 2+ Leg (R) Edema: mild edema Neurologic: alert, responsive, other - Tearful and does not answer any questions Assessment/Plan Status Narrative Patient is alert awake afebrile hemodynamically stable and tearful there is eye contact there is normal attention span but patient deliberately did not want to answer any question for the reason of her depression physical examination is unchanged she is stable and laboratory tests revealed the patient WBC now normal her H&H remained stable she continues to be on daptomycin and IV case for Klebsiella pneumonia Carbapenem MDR and Enterococcus for Cialis sensitive to Vanco as a result of blood tests on March 06 repeat laboratory tests and chest x-ray will be done in a.m. Lucas Sumner MD, MD Mar 15, 2020 17:32
--- NOTE | 2020-03-15 19:00 | NUR ---
NURSE NOTES: Received report from ERASMO Locke. patient is in bed without any acute distress noted. sinus rhythm on the monitor. trach to vent AC 14 TV 500 FiO2 40% PEEP 5. Gtube and tube feeding running Nepro @35, tolerating well. x1 PRBC infusing from AM shift. bed to lowest position and locked. side rails up x2. call light within easy reach. will continue plan of care.
--- NOTE | 2020-03-15 19:04 | NUR ---
NURSE HAND-OFF REPORT: Important Events on Shift:stable, hgb 7.4 transfuse 1 prbc Patient Status: full code Diet: tube feeds Pending Orders: [] Pending Results/Labs:[] Pending MD notification:[] Latest Vital Signs: Temperature 97.2 , Pulse 60 , B/P 115 /66 , Respiratory Rate 23 , O2 SAT 98 , Mechanical Ventilator, O2 Flow Rate . Vital Sign Comment: stable EKG Rhythm: Sinus Rhythm Rhythm change?: N Notified?: N -Dr Екатерина HATFIELD Response: No New Orders Received Latest Chavarria Fall Score: 50 Fall Risk: High Risk Safety Measures: Call light Within Reach, Bed Alarm Zone 2, Side Rails Side Rails x2, Bed position Low and Locked. Fall Precautions: Yellow Socks Report given to amanuel ramesh.
[2020-03-15 20:00] VITALS: BP 119/66
[2020-03-15] MEDS: Dyna-Hex 2% Top Sol 2oz TOPIC SCH (21:02)
[2020-03-16] VITALS: BP 110/60
[2020-03-16 04:00] VITALS: BP 124/72
--- NOTE | 2020-03-16 04:29 | NUR ---
NURSE NOTES: bed bath performed. vital signs stable. no BM. wound care performed.
[2020-03-16] MEDS: Metoclopramide 10mg/2ml Inj IVP SCH ×3 (05:30→22:11)
[2020-03-16] MEDS: Renvela 800mg Pkt NG SCH ×4 (05:30→23:13)
[2020-03-16 06:48] LABS: HEMATOCRIT 30.2 % (37.0-47.0); HEMOGLOBIN 10.2 G/DL (12.0-16.0); MEAN CORPUSCULAR VOLUME 89 FL (80-99); PLATELET COUNT 86 K/UL (150-450); RED BLOOD COUNT 3.41 M/UL (4.20-5.40); RED CELL DISTRIBUTION WIDTH 14.4 % (11.6-14.8); WHITE BLOOD COUNT 8.7 K/UL (4.8-10.8)
--- NOTE | 2020-03-16 07:00 | NUR ---
NURSE HAND-OFF REPORT: Important Events on Shift: raymond inserted Patient Status: full code Diet: nepro @35 Pending Orders: [] Pending Results/Labs:[] Pending MD notification:[] Latest Vital Signs: Temperature 97.0 , Pulse 67 , B/P 124 /72 , Respiratory Rate 21 , O2 SAT 95 , Mechanical Ventilator, O2 Flow Rate . Vital Sign Comment: stable EKG Rhythm: Sinus Rhythm Rhythm change?: N MD Notified?: N -Dr Екатерина HATFIELD Response: No New Orders Received Latest Chavarria Fall Score: 50 Fall Risk: High Risk Safety Measures: Call light Within Reach, Bed Alarm Zone 2, Side Rails Side Rails x2, Bed position Low and Locked. Fall Precautions: Yellow Socks Report given to ERASMO Lindsay.
--- NOTE | 2020-03-16 07:20 | NUR ---
NURSE NOTES: Received report from ERASMO Abdul. Patient in bed resting, no active s/s cardiac, respiratory distress noticed at this time. Patient awake and alert, trach to vent, non-verbal, able to follow simple command, open eyes spontaneously. Patient SR with HR 67, Trach to Vent Shiley 7 AC 14 TV 500 Fio2 40% PEEP 5. GT patent, intact, Nephro @ 40ml/h. IV on left FA 22G, right hand 22G, asymptomatic, patent, intact. HD access on right upper chest asymptomatic, patent, intact. Endorsed patient scheduled HD today, VIP called, 1 unit PRBC given yesterday. Bed in lowest position, side rails upx3, call light within reach, bed alarm on, Will continue to monitor.
--- NOTE | 2020-03-16 07:28 | Hematology/Onc Progress Note ---
Assessment/Plan Assessment/Plan # Leukocytosis, now with likely bacteremia, as per ID care --> Cxr: : Large left abiola consolidation/effusion --> wbc 30-->40-->27->30->29-->35->32-->28-->21->10.2 --> ABX angelo/vanc-->tobra/edson/vanc-->dapto/ceftazadine --> smear reviewed --> ID recs are noted # Elevated tumor markers, cea and ca 19.9 --> reviewed prior 01/27/20 cat scan a/p --> no masses noted, hold off further extensive w/u # Thrombocytopenia likely reactive v medication indcued --> plt 200-->129->91-->86 --> r/o dic --> anticoag as needed # Anemia of chronic disease due to underlying chronic medical issues, multifactorial --> Anemia workup has been reviewed, cw acd --> No evidence of hemolysis is noted, peripheral smear has been reviewed. --> Hgb goal >7. Transfuse prn. --> Epogen required in prior --> Medications have been reviewed --> low threshold for gi evaluation in case has occult + --> hgb 1.9-->5-->7.1-->8.8-->8.1->7.5-> 8.2 --> 1 unit prbc10/17, 2 units /, 03/02 --> gi eval as needed # Coagulopathy with inr 1.5 --> consider vit k/ffp as needed preprocedure --> labs noted # Aortic dissection as seen on Ct ==> when stable, consider transfer hloc # JAVIER initially >2 --> on ivfs --> per renal # Elevated d-dimer, likely infection related --> venous duplex prior neg --> in prior neg # Dysphagia s/p peg --> as per gi # Thoracic aortic dissection --> s/p repair early 2017 # Chronic Resp failure -> s/p trach/vent # Psychiatric history on ativan/haldol # [place] # Dvt ppx --> scds The timing of this note does not necessarily reflect the time of the patient was seen. Greatly appreciate consultation. Subjective Allergies: Coded Allergies: No Known Allergies (Unverified , 10/10/17) All Systems: reviewed and negative except above Subjective 03/04 for 1 unit transfusion this am as hgb remains low, wbc better 03/05 egd was done did show large nonbleeding gastric ulcer, high tumor markers 03/06 nv, with davis overnight, bp remains stable, with occult + stool, dw Rn 03/09 nv, remains stable, on vanc/tobra/edson, meds reviewed, no bleeding 03/10 nv, on vent, no bleeding, receiving abx, no night sweats 03/11 nv, dw surgeon and pcp, with aortic dissection to transfer [facility] when stable 03/12 nv, labs reviewed, wbc 21, hgb 7.5, otherwise is comfortable 03/13 nv, labs noted, no bleeding, wbc 13, hgb improved, meds reviewed 03/15 nv, meds reviewed, labs noted, no bleeding, on vent 03/16 nv/tv, peg, meds noted, hgb remains stable, improved to 10 Objective Objective Current Medications Medications (Trade) Dose Ordered Sig/Penny Route PRN Reason Start Time Stop Time Status Last Admin Dose Admin Acetaminophen (Tylenol) 650 mg Q6H PRN GT Mild Pain (Pain Scale 1-3) 03/02/20 22:30 04/01/20 22:29 03/14/20 20:22 Acetaminophen (Tylenol) 650 mg Q6H PRN GT Temp >100.5 03/03/20 03:00 04/01/20 22:29 Aspirin (ASA) 81 mg DAILY GT 03/07/20 09:00 04/21/20 08:59 03/14/20 09:08 Carvedilol (Coreg) 6.25 mg EVERY 12 HOURS GT 03/14/20 21:00 04/13/20 20:59 03/15/20 21:02 Ceftazidime/ Avibactam 0.94 gm/ Dextrose 110 ml @ 110 mls/hr Q12HR IV 03/06/20 13:00 03/20/20 23:59 03/15/20 22:23 Chlorhexidine Gluconate (Ling-Hex 2%) 1 applic DAILY@2000 TOPIC 03/03/20 20:00 06/01/20 19:59 03/15/20 21:02 Daptomycin 500 mg/ Sodium Chloride 50 ml @ 100 mls/hr Q48H IV 03/10/20 13:00 03/21/20 23:59 03/14/20 12:52 Dextrose (Dextrose 50%) 25 ml Q30M PRN IV Hypoglycemia 03/15/20 07:30 06/13/20 07:29 Dextrose (Dextrose 50%) 50 ml Q30M PRN IV Hypoglycemia 03/15/20 07:30 06/13/20 07:29 Hydralazine HCl (Apresoline) 25 mg Q6H PRN GT For High Blood Pressure 03/02/20 22:00 05/31/20 21:59 Loperamide HCl (Imodium) 2 mg Q6H PRN GT Diarrhea 03/06/20 12:45 04/05/20 12:44 03/06/20 13:01 Metoclopramide HCl (Reglan) 5 mg Q8HR IVP 03/04/20 11:45 04/03/20 11:44 03/16/20 05:30 Midodrine (Pro-Amatine) 10 mg THREE TIMES A DAY GT 03/04/20 13:00 06/01/20 12:59 03/15/20 08:28 Pantoprazole (Protonix) 40 mg EVERY 12 HOURS IVP 03/04/20 21:00 04/02/20 20:59 03/15/20 21:03 Polyethylene Glycol (Miralax) 17 gm BEDTIME PRN GT Constipation 03/02/20 22:00 04/01/20 21:59 Sevelamer Carbonate (Renvela) 1,600 mg Q6HR NG 03/11/20 12:00 06/08/20 11:59 03/16/20 05:30 Sodium Hypochlorite (Dakin's Quarter Strength) 1 applic DAILY TOPIC 03/04/20 09:00 04/03/20 08:59 03/15/20 08:29 Sucralfate (Carafate) 1 gm FOUR TIMES A DAY GT 03/11/20 09:00 06/09/20 08:59 03/15/20 21:02 Tobramycin Protocol (Tobramycin pharmacy to dose) 1 ea DAILY PRN MISC Per rx protocol 03/06/20 09:15 04/05/20 09:14 Last 24 Hour Vital Signs Date Time Temp Pulse Resp B/P (MAP) Pulse Ox O2 Delivery O2 Flow Rate FiO2 03/16/20 04:00 Mechanical Ventilator 03/16/20 04:00 97.0 67 21 124/72 (89) 95 03/16/20 04:00 40 03/16/20 04:00 67 03/16/20 03:08 76 28 40 03/16/20 00:00 Mechanical Ventilator 03/16/20 00:00 65 03/16/20 00:00 97.0 60 15 110/60 (77) 96 03/15/20 23:32 64 20 40 03/15/20 21:02 60 119/66 03/15/20 20:00 Mechanical Ventilator 03/15/20 20:00 97.9 60 18 119/66 (83) 100 03/15/20 20:00 40 03/15/20 20:00 60 03/15/20 19:22 62 20 40 03/15/20 17:05 60 23 40 03/15/20 16:00 Mechanical Ventilator 03/15/20 16:00 40 03/15/20 16:00 97.2 58 21 115/66 (82) 98 03/15/20 15:53 58 03/15/20 15:15 61 23 40 03/15/20 13:28 61 16 40 03/15/20 12:00 63 03/15/20 12:00 97.0 55 20 127/76 (93) 94 03/15/20 12:00 Mechanical Ventilator 03/15/20 12:00 40 03/15/20 11:03 62 18 40 03/15/20 08:54 60 17 40 03/15/20 08:27 61 111/56 03/15/20 08:00 60 03/15/20 08:00 97.5 61 18 111/56 (74) 97 03/15/20 08:00 Mechanical Ventilator 03/15/20 08:00 40 03/15/20 07:10 61 17 40 03/15/20 05:24 60 16 40 03/15/20 04:00 40 03/15/20 04:00 97.0 60 17 113/58 (76) 96 03/15/20 04:00 Mechanical Ventilator 03/15/20 04:00 63 03/15/20 03:00 65 20 40 03/15/20 01:40 64 19 40 03/15/20 00:00 Mechanical Ventilator 03/15/20 00:00 97.5 60 18 118/58 (78) 96 03/15/20 00:00 40 03/15/20 00:00 66 03/14/20 23:25 64 16 40 03/14/20 21:20 68 20 40 03/14/20 20:21 66 112/69 03/14/20 20:00 Mechanical Ventilator 03/14/20 20:00 40 03/14/20 20:00 64 03/14/20 20:00 97.3 66 19 112/69 (83) 100 03/14/20 19:20 66 25 40 03/14/20 17:25 76 23 40 03/14/20 16:00 Mechanical Ventilator 03/14/20 16:00 40 03/14/20 16:00 97.0 74 22 115/54 (74) 96 03/14/20 16:00 77 03/14/20 15:30 74 24 40 03/14/20 13:26 70 21 40 03/14/20 12:00 40 03/14/20 12:00 97.5 70 20 131/72 (91) 96 03/14/20 12:00 Mechanical Ventilator 03/14/20 12:00 71 03/14/20 11:30 75 21 40 03/14/20 09:27 72 24 40 03/14/20 09:08 70 132/68 03/14/20 08:00 97.7 72 23 132/68 (89) 96 03/14/20 08:00 70 03/14/20 08:00 40 03/14/20 08:00 Mechanical Ventilator Intake and Output 03/15/20 03/16/20 19:00 07:00 Intake Total 590 ml 505 ml Balance 590 ml 505 ml Intake Free Water 60 ml 120 ml IV Total 110 ml Tube Feeding 420 ml 385 ml Labs Test 03/13/20 12:36 03/13/20 19:07 03/13/20 19:38 03/13/20 21:11 POC Whole Blood Glucose 82 MG/DL (74-106) 66 MG/DL (74-106) 65 MG/DL (74-106) 133 MG/DL (74-106) Test 03/13/20 23:44 03/14/20 05:47 03/14/20 12:31 03/14/20 18:55 POC Whole Blood Glucose 122 MG/DL (74-106) 89 MG/DL (74-106) 80 MG/DL (74-106) Test 03/15/20 00:06 03/15/20 04:02 03/15/20 05:57 03/15/20 11:55 POC Whole Blood Glucose 82 MG/DL (74-106) 79 MG/DL (74-106) 85 MG/DL (74-106) White Blood Count 9.4 K/UL (4.8-10.8) Red Blood Count 2.49 M/UL (4.20-5.40) Hemoglobin 7.4 G/DL (12.0-16.0) Hematocrit 21.9 % (37.0-47.0) Mean Corpuscular Volume 88 FL (80-99) Mean Corpuscular Hemoglobin 29.8 PG (27.0-31.0) Mean Corpuscular Hemoglobin Concent 33.9 G/DL (32.0-36.0) Red Cell Distribution Width 15.0 % (11.6-14.8) Platelet Count 82 K/UL (150-450) Mean Platelet Volume 10.8 FL (6.5-10.1) Neutrophils (%) (Auto) % (45.0-75.0) Lymphocytes (%) (Auto) % (20.0-45.0) Monocytes (%) (Auto) % (1.0-10.0) Eosinophils (%) (Auto) % (0.0-3.0) Basophils (%) (Auto) % (0.0-2.0) Differential Total Cells Counted 100 Neutrophils % (Manual) 85 % (45-75) Lymphocytes % (Manual) 10 % (20-45) Monocytes % (Manual) 2 % (1-10) Eosinophils % (Manual) 3 % (0-3) Basophils % (Manual) 0 % (0-2) Band Neutrophils 0 % (0-8) Platelet Estimate Decreased Platelet Morphology Normal Hypochromasia 1+ Anisocytosis 1+ Sodium Level 131 MMOL/L (136-145) Potassium Level 3.5 MMOL/L (3.5-5.1) Chloride Level 94 MMOL/L (98-107) Carbon Dioxide Level 23 MMOL/L (21-32) Anion Gap 14 mmol/L (5-15) Blood Urea Nitrogen 79 mg/dL (7-18) Creatinine 2.3 MG/DL (0.55-1.30) Estimat Glomerular Filtration Rate 22.7 mL/min (>60) Glucose Level 75 MG/DL (74-106) Calcium Level 6.1 MG/DL (8.5-10.1) Phosphorus Level 4.0 MG/DL (2.5-4.9) Magnesium Level 1.8 MG/DL (1.8-2.4) Total Bilirubin 0.5 MG/DL (0.2-1.0) Aspartate Amino Transf (AST/SGOT) 35 U/L (15-37) Alanine Aminotransferase (ALT/SGPT) 20 U/L (12-78) Alkaline Phosphatase 101 U/L (46-116) C-Reactive Protein, Quantitative 8.3 mg/dL (0.00-0.90) Pro-B-Type Natriuretic Peptide > 59924 pg/mL (0-125) Total Protein 4.9 G/DL (6.4-8.2) Albumin 1.5 G/DL (3.4-5.0) Globulin 3.4 g/dL Albumin/Globulin Ratio 0.4 (1.0-2.7) Test 03/15/20 16:57 03/15/20 23:27 03/16/20 03:23 03/16/20 06:04 POC Whole Blood Glucose 86 MG/DL (74-106) 92 MG/DL (74-106) 84 MG/DL (74-106) White Blood Count 8.7 K/UL (4.8-10.8) Red Blood Count 3.41 M/UL (4.20-5.40) Hemoglobin 10.2 G/DL (12.0-16.0) Hematocrit 30.2 % (37.0-47.0) Mean Corpuscular Volume 89 FL (80-99) Mean Corpuscular Hemoglobin 30.0 PG (27.0-31.0) Mean Corpuscular Hemoglobin Concent 33.8 G/DL (32.0-36.0) Red Cell Distribution Width 14.4 % (11.6-14.8) Platelet Count 86 K/UL (150-450) Mean Platelet Volume 9.7 FL (6.5-10.1) Neutrophils (%) (Auto) % (45.0-75.0) Lymphocytes (%) (Auto) % (20.0-45.0) Monocytes (%) (Auto) % (1.0-10.0) Eosinophils (%) (Auto) % (0.0-3.0) Basophils (%) (Auto) % (0.0-2.0) Height (Feet): 5 Height (Inches): 3.00 Weight (Pounds): 128 Objective Physical Exam: Vitals: reviewed General: NAD HEENT: nc, at Neck: supple ++trach/vent Chest: clear breath sounds bilaterally Cardiovascular: RRR, no s3, s4 Abdomen: soft, nontender, nd +gtube Extremities: no cce, normal range of motion Neuro: alert Evan Muhammad MD Mar 16, 2020 07:28
[2020-03-16 07:40] LABS: ALBUMIN 1.6 G/DL (3.4-5.0); ALBUMIN/GLOBULIN RATIO 0.4 (1.0-2.7); BILIRUBIN,TOTAL 0.5 MG/DL (0.2-1.0); CALCIUM 6.2 MG/DL (8.5-10.1); CREATININE 2.4 MG/DL (0.55-1.30); POTASSIUM 3.7 MMOL/L (3.5-5.1)
[2020-03-16 08:00] VITALS: BP 128/68
[2020-03-16] MEDS: D5W IV SCH ×2 (08:05→22:11)
[2020-03-16] MEDS: Midodrine 10mg tab GT SCH ×3 (08:05→17:27)
[2020-03-16] MEDS: CEFTAZIDIME IV SCH ×2 (08:05→22:11)
[2020-03-16] MEDS: AVIBACTAM IV SCH ×2 (08:05→22:11)
[2020-03-16] MEDS: Aspirin Baby 81mg GT SCH (08:05)
[2020-03-16] MEDS: Sucralfate 1gm tab GT SCH ×4 (08:05→20:30)
[2020-03-16] MEDS: Carvedilol 6.25mg Tab GT SCH ×2 (08:06→20:31)
[2020-03-16] MEDS: Pantoprazole Inj IVP SCH ×2 (08:06→20:31)
[2020-03-16] MEDS: Dakin's 0.125% Soln (Quarter Strength) 16oz TOPIC SCH (08:06)
--- NOTE | 2020-03-16 08:13 | NUR ---
RADIOLOGY DEPT., CHEST X-RAY DONE.-P.DYE
--- NOTE | 2020-03-16 09:59 | NUR ---
RD ASSESSMENT & RECOMMENDATIONS SEE CARE ACTIVITY FOR COMPLETE ASSESSMENT DAILY ESTIMATED NEEDS: Needs based on Critical care, wound, renal dysfunction 59.5 kg 27-22 kcals/kg 8502-2906 total kcals W/ HD (1.5-2.0) g protein/kg 89-119 g total protein Fluid per MD NUTRITION DIAGNOSIS: * Swallowing difficulty R/T dysphagia, respiratory status as evidenced by vent dep via trach, GT Dep. * Increase kcal and pro needs r/t wound healing, renal dysfunction as evidenced by h/o stage 4 sacral wound, and HD. CURRENT TF: Nepro @ 40ml/hr x 24 hrs ENTERAL NUTRITION RECOMMENDATIONS: Nepro @40ml/hr x 24 hrs + Prosource 1pkt BID to provide 960ml, 1728kcal, 78g+22g prot, 779ml free water * Maintain goal of 40ml/hr. * Add Prosource 1pkt BID to better meet increased protein needs (additional 11g prot/each) * Water flush per MD/ HOB over 30 degrees ADDITIONAL RECOMMENDATIONS: * Maintain calibrated bed scale: 58kg-> 68kg now * Monitor for HD continuity * WC eval-> w/ TF orders add FRANKLIN in 4oz H2O BID via GT Vit C per nephrology, Nephrovite 1 tab daily. * Monitor BGs closely for hypoglycemia- D10 now dc'ed. On Bedside BG checks .
--- NOTE | 2020-03-16 10:29 | Infectious Diseases Prog Note ---
Assessment/Plan 49yo F with: MDR Kleb pna bacteremia AMS Anemia to 1.9 on admission 03/02 Leukocytosis to 40, improving GPC bacteremia UTI Pneumonia c/b mod-large R pleural effusion and small L pleural effusion - compressive atelectasis Hypotension 03/02 BCx 1/2 +Staph epi, 12 +Staph haemolyticus (m/l skin colonizers) UA+, UCx >100k P.stuartii (S-angelo) & CRE P.mirablis (R-polyB/colistin, S- tobramycin, per [facility] is "intrinsically resistant to Avycaz/Zerbaxa" not clear why to me and they are unable to elaborate more) COVID rapid neg, PCR neg CXR: Tracheostomy again demonstrated. Interim placement of a right jugular tunneled dialysis catheter. There is infiltrate and volume loss in the left lung, particularly in the perihilar region, suprahilar region, and base. Consolidation at the lung base is similar. The perihilar and suprahilar region consolidation is new. The right lung pleural space are clear. C.dif neg 03/03 BCx NTD 03/06 BCx 2/2 +MDR Kleb pna (arnett-R, including R-polyB, colistin), 02/14 +E.faecium VRE (R-amp, S-linezolid) 03/08 BCx NTD 03/09 CT CAP: Very limited exam, as described, due to massive anasarca. This could limit visualization of the discrete fluid collection such as an abscess. Extensive thoracoabdominal aortic dissection, as described above. Current flap begins just distal to the left subclavian artery origin; per report, there is history of surgical repair so there may have been surgical repair of the ascending thoracic aorta. Bilateral pleural effusions, slightly smaller than on earlier exams. Extensive atelectasis as a result. Extensive pulmonary par enchymal disease as detailed above. This may reflect pneumonia or pulmonary edema or both. Evidence of pulmonary arterial hypertension, with dilatation of the pulmonary artery. Considerable ascites fluid. 03/11 Chest US: Small right, trace left pleural effusions, insufficient for safe thoracentesis AF Sepsis Leukocytosis Hypoxia on vent Pneumonia c/b L pleural effusion (recurrent, prior determined to be transudative) - s/p thora 01/21, 1050cc removed Volume overload, BNP >35,0000, likely 2/2 progressive CKD --> ESRD ?Pancreatitis, Lipase >2000 Acute anemia to 5s CONS bacteremia, ?contaminant Aflutter w/ RVR 01/13 BCx 2/2 +S. epi COVID PCR neg Flu neg CXR: Large left pleural effusion. Bilateral interstitial and airspace infiltrates versus edema MRSA nares neg 01/16 BCx NTD 01/17 BCx /2 +Staph auricularis (skin colonizer) 01/18 Resp cx +MDR CRE PsA (S-gent, I-colistin, R-polyB) (Intermediate to Zerbaxa, Resistant to Avycaz) 01/18 C.dif neg 01/18 CXR: Similar opacification of the left hemithorax likely representing combination of pleural effusion with atelectasis versus pneumonia/edema. Decreased but persistent hazy opacity throughout the right lung may represent edema versus infectious/inflammatory process. 01/20 BCx NTD 01/21 L thora 1050 cc removed, cx NTD 01/25 Wound cx from Gtube site +CRE Kleb pna (arnett-R) and MDR PsA (colonizers) 01/26 CT A/P: Limited exam, due to severe diffuse anasarca. Ascites. Bilateral pleural effusions. Basilar pulmonary atelectatic changes and consolidation. Gastrostomy. Atrophic left kidney with a nephroureteral stents again demonstrated. Possible retrococcygeal decubitus changes. Correlate with clinical findings, consider MRI if there is concern for sacral osteomyelitis. Right hip intertrochanteric fracture, also previously demonstrated. Left femoral dialysis catheter. Nonspecific right lobe liver lesion is unchanged, not well- demonstrated. ctasia bordering on aneurysmal dilatation and possible chronic dissection of the distal thoracic aorta, also previously described. JAVIER on CKD On previous admission Sep-Oct 2019 required HD for short period Going to start HD this admission again R/o COVID 01/14 COVID PCR neg 12/29 neg at [facility] per report H/o UTI 10/15 u/a wbc 30-40, nit neg, leuk +3; ucx ESBL P. mirablis, ESBL M. morganii //20 u/a wbc tnct, nit neg, leuk +3; ucx >100k MDR P. stuarti (S Ceftriaxone, Meropenem) 8/25 u/a wbc tnct, nit neg, leuk ; ucx >100k VRE 10/15/19 u/a wbc tnct; ucx >100k ESBL P. stuarti (S ertapenem, aztreonam) H/o transudative pleural effusion 11/28 Sp Thora (w: 169, PMN: 2%, L: 49% , LDH: 57, prot 2.5); cx Neg H/o PNA 10/15/19 Resp cx ESBL P. mirabilis, MDR P.a. (S only to Gent) 09/22 Resp cx + MDR PsA (S-gent; I-colistin; R-levofloxacin, Zosyn, angelo) 09/16/19 Sp cx ESBL P. mirablis H/o PPM site (pocket) infection and pocket abscess 2ry to S. epi-11/2018, sp >6weeks IV vancomycin 11/27 SP ABBIE: no evidence for vegetation on any of the valves 11/26/18 SP PPM removal: OR findings:The fibrous capsule enclosing the generator was then opened and there was a [id number] amount of yellowish fluid drainage. The generator was then removed.Atrial and ventricular leads were detached. The necrotic tissue of the pocket was then removed and the pocket was flushed with an antibiotic solution. Capsule, wound tissue and lead tip cx: Neg 2d echo: no vegetation seen US chest: 4.6 x 3.4 x 0.9 cm hypoechoic/anechoic area overlying left chest pacemaker power pack. This could represent either a discrete fluid collection or a focal area of very edematous tissue. Infected fluid pocket also possible. 11/18 Bcx 3/4 S. epi; 11/20 Bcx neg; 11/24 Bcx Neg; 11/27 Bcx Neg CAD s/p CABG GERD/gastritis Afib HTN Dysphagia sp GT Aortic dissection s/p repair 2017 S/p PPM Parkinson's Disease Schizophrenia Anxiety COPD Chronic resp failure s/p trach Hx of tracheal bleeding [place] resident ([facility]) VRE and MRSA colonized Plan: Cont daptomycin #7 given transient VRE bacteremia, sepsis - will need 14 day course from neg BCx 03/08, end date 03/21 CK on 03/13 = 173 (decreasing), next check 03/20 Cont Avycaz #11 given MDR Kleb pna bacteremia - will need 14 day course from neg BCx 03/08, end date 03/21 Stop tobramycin #10/10 per Pharmacy given +UCx results Appreciate Surgery input on thoracic aortic aneurysm noted on CT imaging - d/w Dr. Saavedra, pt needs emergent transfer out to [facility] for CT surgery evaluation, primary MD aware Given somewhat transient MDR Kleb pna bacteremia (was not on admission BCx and cleared rapidly after positive BCx), no current indication to remove Permacath as less likely 2/2 line infection and more likely 2/2 gut translocation in sett ing of GIB, though if leukocytosis persists despite appropriate abx, then will have to reconsider. F/u 03/06 BCx +MDR Kleb pna - need sensi to Avycaz/Zerbaxa (d/w lab, will perform) Trend Hg, GIB Trend BP, WBC 03/16 SP tobramycin IV #10 for resistant UTI 03/10/20 SP edson #4 empiric, vanco #9 01/31 SP angelo/inh tobra #10 for pna 01/23 SP vanco IV #10 given CONS/GPC bacteremia 01/16 SP Zosyn #2 01/14 SP dex 10mg in ED 12/10 SP IV Gentamycin #10 12/07 SP Meropenem #10 12/01 SP IV Vancomycin #5 11/28 Sp Cefepime #2 and IV Gentamycin x1 Monitor CBC/CMP Monitor temp curve, hemodynamics Monitor resp status D/w RN Thank you for this consult. [facility] will continue to follow. Subjective Allergies: Coded Allergies: No Known Allergies (Unverified , 10/10/17) AF Remains stable on vent 40% PEEP 5 Awaiting transfer to [facility] WBC improved to 8.7 Objective Last 24 Hour Vital Signs Date Time Temp Pulse Resp B/P (MAP) Pulse Ox O2 Delivery O2 Flow Rate FiO2 03/16/20 08:06 73 128/68 03/16/20 08:00 98.0 73 23 128/68 (88) 97 03/16/20 08:00 70 03/16/20 08:00 40 03/16/20 08:00 Mechanical Ventilator 03/16/20 07:05 68 22 40 03/16/20 04:00 Mechanical Ventilator 03/16/20 04:00 97.0 67 21 124/72 (89) 95 03/16/20 04:00 40 03/16/20 04:00 67 03/16/20 03:08 76 28 40 03/16/20 00:00 Mechanical Ventilator 03/16/20 00:00 65 03/16/20 00:00 97.0 60 15 110/60 (77) 96 03/15/20 23:32 64 20 40 03/15/20 21:02 60 119/66 03/15/20 20:00 Mechanical Ventilator 03/15/20 20:00 97.9 60 18 119/66 (83) 100 03/15/20 20:00 40 03/15/20 20:00 60 03/15/20 19:22 62 20 40 03/15/20 17:05 60 23 40 03/15/20 16:00 Mechanical Ventilator 03/15/20 16:00 40 03/15/20 16:00 97.2 58 21 115/66 (82) 98 03/15/20 15:53 58 03/15/20 15:15 61 23 40 03/15/20 13:28 61 16 40 03/15/20 12:00 63 03/15/20 12:00 97.0 55 20 127/76 (93) 94 03/15/20 12:00 Mechanical Ventilator 03/15/20 12:00 40 03/15/20 11:03 62 18 40 Height (Feet): 5 Height (Inches): 3.00 Weight (Pounds): 128 Gen: NAD HEENT: NCAT, trach Pulm: BL chest rise on vent Abd: Soft, NTND, +PEG Ext: No c/c/e Skin: No visible rashes Neuro: Awake, minimally interactive Lines: R chest Permacath dressing c/d/i Laboratory Tests Test 03/15/20 11:55 03/15/20 16:57 03/15/20 23:27 03/16/20 03:23 POC Whole Blood Glucose 85 MG/DL (74-106) 86 MG/DL (74-106) 92 MG/DL (74-106) White Blood Count 8.7 K/UL (4.8-10.8) Red Blood Count 3.41 M/UL (4.20-5.40) L Hemoglobin 10.2 G/DL (12.0-16.0) #L Hematocrit 30.2 % (37.0-47.0) #L Mean Corpuscular Volume 89 FL (80-99) Mean Corpuscular Hemoglobin 30.0 PG (27.0-31.0) Mean Corpuscular Hemoglobin Concent 33.8 G/DL (32.0-36.0) Red Cell Distribution Width 14.4 % (11.6-14.8) Platelet Count 86 K/UL (150-450) L Mean Platelet Volume 9.7 FL (6.5-10.1) Neutrophils (%) (Auto) % (45.0-75.0) Lymphocytes (%) (Auto) % (20.0-45.0) Monocytes (%) (Auto) % (1.0-10.0) Eosinophils (%) (Auto) % (0.0-3.0) Basophils (%) (Auto) % (0.0-2.0) Differential Total Cells Counted 100 Neutrophils % (Manual) 85 % (45-75) H Lymphocytes % (Manual) 11 % (20-45) L Monocytes % (Manual) 3 % (1-10) Eosinophils % (Manual) 1 % (0-3) Basophils % (Manual) 0 % (0-2) Band Neutrophils 0 % (0-8) Platelet Estimate Decreased L Platelet Morphology Normal Hypochromasia 1+ Anisocytosis 1+ Sodium Level 128 MMOL/L (136-145) L Potassium Level 3.7 MMOL/L (3.5-5.1) Chloride Level 91 MMOL/L (98-107) L Carbon Dioxide Level 22 MMOL/L (21-32) Anion Gap 15 mmol/L (5-15) Blood Urea Nitrogen 86 mg/dL (7-18) H Creatinine 2.4 MG/DL (0.55-1.30) H Estimat Glomerular Filtration Rate 21.7 mL/min (>60) Glucose Level 74 MG/DL (74-106) Calcium Level 6.2 MG/DL (8.5-10.1) L Phosphorus Level 4.0 MG/DL (2.5-4.9) Magnesium Level 2.0 MG/DL (1.8-2.4) Total Bilirubin 0.5 MG/DL (0.2-1.0) Aspartate Amino Transf (AST/SGOT) 37 U/L (15-37) Alanine Aminotransferase (ALT/SGPT) 23 U/L (12-78) Alkaline Phosphatase 107 U/L (46-116) Total Protein 5.4 G/DL (6.4-8.2) L Albumin 1.6 G/DL (3.4-5.0) L Globulin 3.8 g/dL Albumin/Globulin Ratio 0.4 (1.0-2.7) L Test 03/16/20 06:04 POC Whole Blood Glucose 84 MG/DL (74-106) Current Medications Medications (Trade) Dose Ordered Sig/Penny Route PRN Reason Start Time Stop Time Status Last Admin Dose Admin Acetaminophen (Tylenol) 650 mg Q6H PRN GT Mild Pain (Pain Scale 1-3) 03/02/20 22:30 04/01/20 22:29 03/14/20 20:22 Acetaminophen (Tylenol) 650 mg Q6H PRN GT Temp >100.5 03/03/20 03:00 04/01/20 22:29 Aspirin (ASA) 81 mg DAILY GT 03/07/20 09:00 04/21/20 08:59 03/16/20 08:05 Carvedilol (Coreg) 6.25 mg EVERY 12 HOURS GT 03/14/20 21:00 04/13/20 20:59 03/15/20 21:02 Ceftazidime/ Avibactam 0.94 gm/ Dextrose 110 ml @ 110 mls/hr Q12HR IV 03/06/20 13:00 03/20/20 23:59 03/16/20 08:05 Chlorhexidine Gluconate (Ling-Hex 2%) 1 applic DAILY@2000 TOPIC 03/03/20 20:00 06/01/20 19:59 03/15/20 21:02 Daptomycin 500 mg/ Sodium Chloride 50 ml @ 100 mls/hr Q48H IV 03/10/20 13:00 03/21/20 23:59 03/14/20 12:52 Dextrose (Dextrose 50%) 25 ml Q30M PRN IV Hypoglycemia 03/15/20 07:30 06/13/20 07:29 Dextrose (Dextrose 50%) 50 ml Q30M PRN IV Hypoglycemia 03/15/20 07:30 06/13/20 07:29 Hydralazine HCl (Apresoline) 25 mg Q6H PRN GT For High Blood Pressure 03/02/20 22:00 05/31/20 21:59 Loperamide HCl (Imodium) 2 mg Q6H PRN GT Diarrhea 03/06/20 12:45 04/05/20 12:44 03/06/20 13:01 Metoclopramide HCl (Reglan) 5 mg Q8HR IVP 03/04/20 11:45 04/03/20 11:44 03/16/20 05:30 Midodrine (Pro-Amatine) 10 mg THREE TIMES A DAY GT 03/04/20 13:00 06/01/20 12:59 03/16/20 08:05 Pantoprazole (Protonix) 40 mg EVERY 12 HOURS IVP 03/04/20 21:00 04/02/20 20:59 03/16/20 08:06 Polyethylene Glycol (Miralax) 17 gm BEDTIME PRN GT Constipation 03/02/20 22:00 04/01/20 21:59 Sevelamer Carbonate (Renvela) 1,600 mg Q6HR NG 03/11/20 12:00 06/08/20 11:59 03/16/20 05:30 Sodium Hypochlorite (Dakin's Quarter Strength) 1 applic DAILY TOPIC 03/04/20 09:00 04/03/20 08:59 03/16/20 08:06 Sucralfate (Carafate) 1 gm FOUR TIMES A DAY GT 03/11/20 09:00 06/09/20 08:59 03/16/20 08:05 Tobramycin Protocol (Tobramycin pharmacy to dose) 1 ea DAILY PRN MISC Per rx protocol 03/06/20 09:15 04/05/20 09:14 Ro Pack M.D. Mar 16, 2020 10:29
--- NOTE | 2020-03-16 11:12 | General Progress Note ---
Subjective ROS Limited/Unobtainable: No Allergies: Coded Allergies: No Known Allergies (Unverified , 10/10/17) Objective Last 24 Hour Vital Signs Date Time Temp Pulse Resp B/P (MAP) Pulse Ox O2 Delivery O2 Flow Rate FiO2 03/16/20 10:40 66 20 40 03/16/20 08:06 73 128/68 03/16/20 08:00 98.0 73 23 128/68 (88) 97 03/16/20 08:00 70 03/16/20 08:00 40 03/16/20 08:00 Mechanical Ventilator 03/16/20 07:05 68 22 40 03/16/20 04:00 Mechanical Ventilator 03/16/20 04:00 97.0 67 21 124/72 (89) 95 03/16/20 04:00 40 03/16/20 04:00 67 03/16/20 03:08 76 28 40 03/16/20 00:00 Mechanical Ventilator 03/16/20 00:00 65 03/16/20 00:00 97.0 60 15 110/60 (77) 96 03/15/20 23:32 64 20 40 03/15/20 21:02 60 119/66 03/15/20 20:00 Mechanical Ventilator 03/15/20 20:00 97.9 60 18 119/66 (83) 100 03/15/20 20:00 40 03/15/20 20:00 60 03/15/20 19:22 62 20 40 03/15/20 17:05 60 23 40 03/15/20 16:00 Mechanical Ventilator 03/15/20 16:00 40 03/15/20 16:00 97.2 58 21 115/66 (82) 98 03/15/20 15:53 58 03/15/20 15:15 61 23 40 03/15/20 13:28 61 16 40 03/15/20 12:00 63 03/15/20 12:00 97.0 55 20 127/76 (93) 94 03/15/20 12:00 Mechanical Ventilator 03/15/20 12:00 40 Intake and Output 03/15/20 03/16/20 19:00 07:00 Intake Total 590 ml 505 ml Balance 590 ml 505 ml Intake Free Water 60 ml 120 ml IV Total 110 ml Tube Feeding 420 ml 385 ml Laboratory Tests 03/15/20 11:55: POC Whole Blood Glucose 85 1/31/21 16:57: POC Whole Blood Glucose 86 03/15/20 23:27: POC Whole Blood Glucose 92 03/16/20 03:23: White Blood Count 8.7, Red Blood Count 3.41L, Hemoglobin 10.2#L, Hematocrit 30 .2#L, Mean Corpuscular Volume 89, Mean Corpuscular Hemoglobin 30.0, Mean Corpuscular Hemoglobin Concent 33.8, Red Cell Distribution Width 14.4, Platelet Count 86L, Mean Platelet Volume 9.7, Neutrophils (%) (Auto) , Lymphocytes (%) (Auto) , Monocytes (%) (Auto) , Eosinophils (%) (Auto) , Basophils (%) (Auto) , Differential Total Cells Counted 100, Neutrophils % (Manual) 85H, Lymphocytes % (Manual) 11L, Monocytes % (Manual) 3, Eosinophils % (Manual) 1, Basophils % (Manual) 0, Band Neutrophils 0, Platelet Estimate DecreasedL, Platelet Morpholo gy Normal, Hypochromasia 1+, Anisocytosis 1+, Sodium Level 128L, Potassium Level 3.7, Chloride Level 91L, Carbon Dioxide Level 22, Anion Gap 15, Blood Urea Nitrogen 86H, Creatinine 2.4H, Estimat Glomerular Filtration Rate 21.7, Glucose Level 74, Calcium Level 6.2L, Phosphorus Level 4.0, Magnesium Level 2.0, Total Bilirubin 0.5, Aspartate Amino Transf (AST/SGOT) 37, Alanine Aminotransferase (ALT/SGPT) 23, Alkaline Phosphatase 107, Total Protein 5.4L, Albumin 1.6L, Globulin 3.8, Albumin/Globulin Ratio 0.4L 03/16/20 06:04: POC Whole Blood Glucose 84 Height (Feet): 5 Height (Inches): 3.00 Weight (Pounds): 128 General Appearance: no apparent distress EENT: normal ENT inspection Neck: supple Cardiovascular: normal rate Respiratory/Chest: decreased breath sounds Abdomen: normal bowel sounds, non tender, soft Extremities: non-tender Assessment/Plan Problem List: (1) Hx of CABG ICD Codes: Z95.1 - Presence of aortocoronary bypass graft SNOMED: 881559688, 575636266 (2) History of tracheostomy ICD Codes: Z98.890 - Other specified postprocedural states SNOMED: 816601494, 060497053 (3) PEG (percutaneous endoscopic gastrostomy) status ICD Codes: Z93.1 - Gastrostomy status SNOMED: 008279714, 764627653 (4) Renal failure ICD Codes: N19 - Unspecified kidney failure SNOMED: 06552772, 134523315 (5) Severe anemia ICD Codes: D64.9 - Anemia, unspecified SNOMED: 781725600 Assessment/Plan: s/p EGD gastric ulcer on ppi fu H&H s/p one unit PRBC 03/11/20, 03/15 on carafate TF Inder Mccauley MD Mar 16, 2020 11:12
--- NOTE | 2020-03-16 11:16 | General Progress Note ---
Subjective ROS Limited/Unobtainable: No Allergies: Coded Allergies: No Known Allergies (Unverified , 10/10/17) Objective Last 24 Hour Vital Signs Date Time Temp Pulse Resp B/P (MAP) Pulse Ox O2 Delivery O2 Flow Rate FiO2 03/16/20 10:40 66 20 40 03/16/20 08:06 73 128/68 03/16/20 08:00 98.0 73 23 128/68 (88) 97 03/16/20 08:00 70 03/16/20 08:00 40 03/16/20 08:00 Mechanical Ventilator 03/16/20 07:05 68 22 40 03/16/20 04:00 Mechanical Ventilator 03/16/20 04:00 97.0 67 21 124/72 (89) 95 03/16/20 04:00 40 03/16/20 04:00 67 03/16/20 03:08 76 28 40 03/16/20 00:00 Mechanical Ventilator 03/16/20 00:00 65 03/16/20 00:00 97.0 60 15 110/60 (77) 96 03/15/20 23:32 64 20 40 03/15/20 21:02 60 119/66 03/15/20 20:00 Mechanical Ventilator 03/15/20 20:00 97.9 60 18 119/66 (83) 100 03/15/20 20:00 40 03/15/20 20:00 60 03/15/20 19:22 62 20 40 03/15/20 17:05 60 23 40 03/15/20 16:00 Mechanical Ventilator 03/15/20 16:00 40 03/15/20 16:00 97.2 58 21 115/66 (82) 98 03/15/20 15:53 58 03/15/20 15:15 61 23 40 03/15/20 13:28 61 16 40 03/15/20 12:00 63 03/15/20 12:00 97.0 55 20 127/76 (93) 94 03/15/20 12:00 Mechanical Ventilator 03/15/20 12:00 40 Intake and Output 03/15/20 03/16/20 19:00 07:00 Intake Total 590 ml 505 ml Balance 590 ml 505 ml Intake Free Water 60 ml 120 ml IV Total 110 ml Tube Feeding 420 ml 385 ml Laboratory Tests 03/15/20 11:55: POC Whole Blood Glucose 85 1/31/21 16:57: POC Whole Blood Glucose 86 03/15/20 23:27: POC Whole Blood Glucose 92 03/16/20 03:23: White Blood Count 8.7, Red Blood Count 3.41L, Hemoglobin 10.2#L, Hematocrit 30 .2#L, Mean Corpuscular Volume 89, Mean Corpuscular Hemoglobin 30.0, Mean Corpuscular Hemoglobin Concent 33.8, Red Cell Distribution Width 14.4, Platelet Count 86L, Mean Platelet Volume 9.7, Neutrophils (%) (Auto) , Lymphocytes (%) (Auto) , Monocytes (%) (Auto) , Eosinophils (%) (Auto) , Basophils (%) (Auto) , Differential Total Cells Counted 100, Neutrophils % (Manual) 85H, Lymphocytes % (Manual) 11L, Monocytes % (Manual) 3, Eosinophils % (Manual) 1, Basophils % (Manual) 0, Band Neutrophils 0, Platelet Estimate DecreasedL, Platelet Morpholo gy Normal, Hypochromasia 1+, Anisocytosis 1+, Sodium Level 128L, Potassium Level 3.7, Chloride Level 91L, Carbon Dioxide Level 22, Anion Gap 15, Blood Urea Nitrogen 86H, Creatinine 2.4H, Estimat Glomerular Filtration Rate 21.7, Glucose Level 74, Calcium Level 6.2L, Phosphorus Level 4.0, Magnesium Level 2.0, Total Bilirubin 0.5, Aspartate Amino Transf (AST/SGOT) 37, Alanine Aminotransferase (ALT/SGPT) 23, Alkaline Phosphatase 107, Total Protein 5.4L, Albumin 1.6L, Globulin 3.8, Albumin/Globulin Ratio 0.4L 03/16/20 06:04: POC Whole Blood Glucose 84 Height (Feet): 5 Height (Inches): 3.00 Weight (Pounds): 128 General Appearance: no apparent distress EENT: normal ENT inspection Neck: supple Cardiovascular: normal rate Respiratory/Chest: decreased breath sounds Abdomen: normal bowel sounds, non tender, soft Extremities: non-tender Assessment/Plan Problem List: (1) Hx of CABG ICD Codes: Z95.1 - Presence of aortocoronary bypass graft SNOMED: 281422733, 543673480 (2) History of tracheostomy ICD Codes: Z98.890 - Other specified postprocedural states SNOMED: 600804543, 888769674 (3) PEG (percutaneous endoscopic gastrostomy) status ICD Codes: Z93.1 - Gastrostomy status SNOMED: 118255156, 186132269 (4) Renal failure ICD Codes: N19 - Unspecified kidney failure SNOMED: 32595859, 363486133 (5) Severe anemia ICD Codes: D64.9 - Anemia, unspecified SNOMED: 137968638 Assessment/Plan: s/p EGD gastric ulcer on ppi fu H&H s/p one unit PRBC 03/11/20, 03/15 on carafate TF Inder Mccauley MD Mar 16, 2020 11:16
[2020-03-16 12:00] VITALS: BP 114/56
[2020-03-16] MEDS: DAPTOMYCIN 500 MG IV SCH (13:08)
[2020-03-16] MEDS: SODIUM CHLORIDE IV SCH (13:08)
--- NOTE | 2020-03-16 13:09 | Diagnostic Imaging Report ---
Indication: Shortness of breath Technique: One view of the chest Comparison: 03/04/2020 Findings: Inspiration is suboptimal. Right jugular tunneled dialysis catheter is again demonstrated. Hazy right basilar opacity, may in part represent atelectatic lung related to the poor inspiration but infiltrate and/or pleural fluid also likely. There is retrocardiac consolidation, stable to slightly increased. Small left pleural effusion persists Impression: Right basilar hazy opacity, likely atelectasis, infiltrate, effusion, or combination of such Stable to increased retrocardiac consolidation and left pleural fluid
--- NOTE | 2020-03-16 13:11 | NUR ---
CASE MANAGEMENT:REVIEW 03/16/20 SI: SEPSIS. AC/CHR RENAL FAILURE. TRACH.VENT.GT THORACIC/ABDOMINAL AORTIC DISSECTION 98.0 70 23 128/68 97% ON 40% FIO2 H/H-10.2/30.2 PLT-86 NA-128 BUN+86 CR+2.4 ALB-1.6 IS: IV DAPTOMYCIN Q48HRS IV CEFTAZIDIME Q12 IVF@50/HR ASA GT QD IV PROTONIX Q12 IV REGLAN Q8HR COREG GT Q12 CARAFATE GT QID : STEP DOWN UNIT DCP: FROM [facility]
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
--- NOTE | 2020-03-16 13:24 | Nephrology Progress Note ---
Assessment/Plan Problem List: (1) Renal failure (ARF), acute on chronic (2) Anemia (3) Hyponatremia (4) Respiratory failure Assessment (1) JAVIER (acute kidney injury) (2) Renal failure (ARF), acute on chronic (3) Feeding by G-tube (4) Tracheostomy in place (5) Electrolyte imbalance, hyponatremia (6) Anemia, severe (7) Respiratory failure, acute and chronic (8) history of elevated lipase, pancreatitis (9) Elevated troponin I (10) Sepsis Plan March 16: Labs reviewed. Due for dialysis today. Hemoglobin 10.2 today. Continue to monitor renal parameters. March 15: Labs reviewed. Dialyzed March 13. Due for dialysis March 16. Hemoglobin lower. 1 unit of packed RBCs ordered. Per orders. March 14: No labs drawn today. Dialyzed yesterday. Full code. Will check lab tomorrow. Dialysis as needed. March 13: Labs reviewed. Due for dialysis today. Patient remains full code. Continue per current management. March 12: Labs reviewed. Dialyzed yesterday. Due for dialysis tomorrow. Discussed with RN. Patient full code. Continue per current management. March 11: Labs reviewed. Dialyzed this morning. Phosphorus binders dose adjusted. Continue per consultants. Continue to monitor renal parameters. CT: Extensive thoracoabdominal aortic dissection March 10: Labs reviewed. Will order dialysis tomorrow. Phosphorus binders added. Continue per consultants. March 09: No chemistry panel done today. Patient dialyzed yesterday. On dextrose 10% for hypoglycemia. We will check labs tomorrow. Dialysis as needed. March 08: Labs reviewed. Will order dialysis today. Blood sugar low. D10 50 cc an hour started. Continue as is. March 07: Labs reviewed. Dialyzed March 05 and March 06. Continue to monitor renal parameters and hemoglobin. Abnormal electrolytes addressed. IV fluids stopped. Per orders. March 06: Labs reviewed. Dialyzed yesterday. Will reorder dialysis for today. Continue to monitor renal parameters. Hemoglobin 8.4. Patient full code. March 05: Labs reviewed. Patient did not receive dialysis until this morning. Proceed with dialysis. Continue to monitor renal parameters and hemoglobin and hematocrit. March 04: Labs reviewed. Hemoglobin lower. Patient actively bleeding. Was not dialyzed yesterday. Due for GI endoscopy. Continue fluid challenge. Transfusion as needed. Dialysis today. March 03: Labs reviewed. Dialysis ordered. Blood pressure medication all discontinued due to hypotensive state. Albumin bolus given. Continue to monitor renal parameters. Medication list reviewed. Midodrin for low blood pressure ordered Subjective ROS Limited/Unobtainable: Yes Objective Objective Last 24 Hour Vital Signs Date Time Temp Pulse Resp B/P (MAP) Pulse Ox O2 Delivery O2 Flow Rate FiO2 03/16/20 12:00 63 03/16/20 12:00 97.9 60 18 114/56 (75) 100 03/16/20 10:40 66 20 40 03/16/20 08:06 73 128/68 03/16/20 08:00 98.0 73 23 128/68 (88) 97 03/16/20 08:00 70 03/16/20 08:00 40 03/16/20 08:00 Mechanical Ventilator 03/16/20 07:05 68 22 40 03/16/20 04:00 Mechanical Ventilator 03/16/20 04:00 97.0 67 21 124/72 (89) 95 03/16/20 04:00 40 03/16/20 04:00 67 03/16/20 03:08 76 28 40 03/16/20 00:00 Mechanical Ventilator 03/16/20 00:00 65 03/16/20 00:00 97.0 60 15 110/60 (77) 96 03/15/20 23:32 64 20 40 03/15/20 21:02 60 119/66 03/15/20 20:00 Mechanical Ventilator 03/15/20 20:00 97.9 60 18 119/66 (83) 100 03/15/20 20:00 40 03/15/20 20:00 60 03/15/20 19:22 62 20 40 03/15/20 17:05 60 23 40 03/15/20 16:00 Mechanical Ventilator 03/15/20 16:00 40 03/15/20 16:00 97.2 58 21 115/66 (82) 98 03/15/20 15:53 58 03/15/20 15:15 61 23 40 03/15/20 13:28 61 16 40 Intake and Output 03/15/20 03/16/20 19:00 07:00 Intake Total 590 ml 505 ml Balance 590 ml 505 ml Intake Free Water 60 ml 120 ml IV Total 110 ml Tube Feeding 420 ml 385 ml Current Medications Medications (Trade) Dose Ordered Sig/Penny Route PRN Reason Start Time Stop Time Status Last Admin Dose Admin Acetaminophen (Tylenol) 650 mg Q6H PRN GT Mild Pain (Pain Scale 1-3) 03/02/20 22:30 04/01/20 22:29 03/14/20 20:22 Acetaminophen (Tylenol) 650 mg Q6H PRN GT Temp >100.5 03/03/20 03:00 04/01/20 22:29 Aspirin (ASA) 81 mg DAILY GT 03/07/20 09:00 04/21/20 08:59 03/16/20 08:05 Carvedilol (Coreg) 6.25 mg EVERY 12 HOURS GT 03/14/20 21:00 04/13/20 20:59 03/15/20 21:02 Ceftazidime/ Avibactam 0.94 gm/ Dextrose 110 ml @ 110 mls/hr Q12HR IV 03/06/20 13:00 03/20/20 23:59 03/16/20 08:05 Chlorhexidine Gluconate (Ling-Hex 2%) 1 applic DAILY@2000 TOPIC 03/03/20 20:00 06/01/20 19:59 03/15/20 21:02 Daptomycin 500 mg/ Sodium Chloride 50 ml @ 100 mls/hr Q48H IV 03/10/20 13:00 03/21/20 23:59 03/16/20 13:08 Dextrose (Dextrose 50%) 25 ml Q30M PRN IV Hypoglycemia 03/15/20 07:30 06/13/20 07:29 Dextrose (Dextrose 50%) 50 ml Q30M PRN IV Hypoglycemia 03/15/20 07:30 06/13/20 07:29 Hydralazine HCl (Apresoline) 25 mg Q6H PRN GT For High Blood Pressure 03/02/20 22:00 05/31/20 21:59 Loperamide HCl (Imodium) 2 mg Q6H PRN GT Diarrhea 03/06/20 12:45 04/05/20 12:44 03/06/20 13:01 Metoclopramide HCl (Reglan) 5 mg Q8HR IVP 03/04/20 11:45 04/03/20 11:44 03/16/20 13:10 Midodrine (Pro-Amatine) 10 mg THREE TIMES A DAY GT 03/04/20 13:00 06/01/20 12:59 03/16/20 12:58 Pantoprazole (Protonix) 40 mg EVERY 12 HOURS IVP 03/04/20 21:00 04/02/20 20:59 03/16/20 08:06 Polyethylene Glycol (Miralax) 17 gm BEDTIME PRN GT Constipation 03/02/20 22:00 04/01/20 21:59 Sevelamer Carbonate (Renvela) 1,600 mg Q6HR NG 03/11/20 12:00 06/08/20 11:59 03/16/20 12:58 Sodium Hypochlorite (Dakin's Quarter Strength) 1 applic DAILY TOPIC 03/04/20 09:00 04/03/20 08:59 03/16/20 08:06 Sucralfate (Carafate) 1 gm FOUR TIMES A DAY GT 03/11/20 09:00 06/09/20 08:59 03/16/20 12:58 Laboratory Tests 03/15/20 16:57: POC Whole Blood Glucose 86 03/15/20 23:27: POC Whole Blood Glucose 92 03/16/20 03:23: White Blood Count 8.7, Red Blood Count 3.41L, Hemoglobin 10.2#L, Hematocrit 30.2#L, Mean Corpuscular Volume 89, Mean Corpuscular Hemoglobin 30.0, Mean Corpuscular Hemoglobin Concent 33.8, Red Cell Distribution Width 14.4, Platelet Count 86L, Mean Platelet Volume 9.7, Neutrophils (%) (Auto) , Lymphocytes (%) (Auto) , Monocytes (%) (Auto) , Eosinophils (%) (Auto) , Basophils (%) (Auto) , Differential Total Cells Counted 100, Neutrophils % (Manual) 85H, Lymphocytes % (Manual) 11L, Monocytes % (Manual) 3, Eosinophils % (Manual) 1, Basophils % (Manual) 0, Band Neutrophils 0, Platelet Estimate DecreasedL, Platelet Morphology Normal, Hypochromasia 1+, Anisocytosis 1+, Sodium Level 128L, Potassium Level 3.7, Chloride Level 91L, Carbon Dioxide Level 22, Anion Gap 15, Blood Urea Nitrogen 86H, Creatinine 2.4H, Estimat Glomerular Filtration Rate 21.7, Glucose Level 74, Calcium Level 6.2L, Phosphorus Level 4.0, Magnesium Level 2.0, Total Bilirubin 0.5, Aspartate Amino Transf (AST/SGOT) 37, Alanine Aminotransferase (ALT/SGPT) 23, Alkaline Phosphatase 107, Total Protein 5.4L, Albumin 1.6L, Globulin 3.8, Albumin/Globulin Ratio 0.4L 03/16/20 06:04: POC Whole Blood Glucose 84 Height (Feet): 5 Height (Inches): 3.00 Weight (Pounds): 128 General Appearance: no apparent distress, lethargic Cardiovascular: normal rate Respiratory/Chest: decreased breath sounds Abdomen: distended Johnny Houston MD Mar 16, 2020 13:24
--- NOTE | 2020-03-16 14:59 | NUR ---
INSURANCE CLINICALS/REVIEW FAXED TO [facility] T: [phone] F: [phone]
[2020-03-16 16:00] VITALS: BP 103/53
--- NOTE | 2020-03-16 18:30 | NUR ---
NURSE NOTES: Patient received HD , 2L out, no s/s hemodynamic noted. Will continue to monitor.
--- NOTE | 2020-03-16 19:07 | NUR ---
NURSE HAND-OFF REPORT: Important Events on Shift: HD 2L out Patient Status: stable/guarded Diet: Nephro @ 35 Pending Orders: na Pending Results/Labs:na Pending notification:na Latest Vital Signs: Temperature 97.9 , Pulse 71 , B/P 103 /53 , Respiratory Rate 21 , O2 SAT 97 , Mechanical Ventilator, O2 Flow Rate . Vital Sign Comment: stable EKG Rhythm: Sinus Rhythm Rhythm change?: N Notified?: N -Dr Екатерина HATFIELD Response: No New Orders Received Latest Chavarria Fall Score: 50 Fall Risk: High Risk Safety Measures: Call light Within Reach, Bed Alarm Zone 2, Side Rails Side Rails x2, Bed position Low and Locked. Fall Precautions: Yellow Socks Report given to ERASMO Bowden. Addendum: 03/16/20 at 1909 by ARNOLDO HARTMANN RN Report given to ERASMO Givens.
--- NOTE | 2020-03-16 19:46 | NUR ---
NURSE NOTES: Received report from ERASMO Lindsay. Pt resting in bed, open eyes spontaneously, on trach to vent S7, AC14, TV 500, Fio2 40, Peep 5 and tolerating well with 97% O2sat. Tube feeding running and no residual noted. HOB elevated. IV sites intact and running IVF. Permacath for HD on R chest noted, dressing d/c/i. HD done today and 2L output noted. No respiratory distress noted. IV sites intact and patent. Bed locked, lowest position, alarm on, side rails up, call light within reach. Will continue to monitor.
[2020-03-16 20:00] VITALS: BP 121/59
[2020-03-16] MEDS: Dyna-Hex 2% Top Sol 2oz TOPIC SCH (20:30)
--- NOTE | 2020-03-16 23:31 | NUR ---
NURSE NOTES: Pt sleeping and tolerating current vent setting, 97% O2sat noted. No s/s distress noted. Changed position.
--- NOTE | 2020-03-16 23:39 | General Progress Note ---
Subjective Constitutional: Reports: no symptoms HEENT: Reports: no symptoms Cardiovascular: Reports: no symptoms Respiratory: Reports: no symptoms Gastrointestinal/Abdominal: Reports: no symptoms Genitourinary: Reports: no symptoms Neurologic/Psychiatric: Reports: no symptoms Endocrine: Reports: no symptoms Hematologic/Lymphatic: Reports: no symptoms Allergies: Coded Allergies: No Known Allergies (Unverified , 10/10/17) Objective Last 24 Hour Vital Signs Date Time Temp Pulse Resp B/P (MAP) Pulse Ox O2 Delivery O2 Flow Rate FiO2 03/16/20 21:15 61 21 40 03/16/20 20:31 64 121/59 03/16/20 20:00 97.3 64 17 121/59 (79) 97 03/16/20 20:00 40 03/16/20 20:00 Mechanical Ventilator 03/16/20 20:00 71 03/16/20 19:05 71 21 40 03/16/20 16:00 Mechanical Ventilator 03/16/20 16:00 97.9 60 14 103/53 (70) 97 03/16/20 16:00 40 03/16/20 16:00 60 03/16/20 14:42 70 24 40 03/16/20 12:00 63 03/16/20 12:00 40 03/16/20 12:00 97.9 60 18 114/56 (75) 100 03/16/20 12:00 Mechanical Ventilator 03/16/20 10:40 66 20 40 03/16/20 08:06 73 128/68 03/16/20 08:00 98.0 73 23 128/68 (88) 97 03/16/20 08:00 70 03/16/20 08:00 40 03/16/20 08:00 Mechanical Ventilator 03/16/20 07:05 68 22 40 03/16/20 04:00 Mechanical Ventilator 03/16/20 04:00 97.0 67 21 124/72 (89) 95 03/16/20 04:00 40 03/16/20 04:00 67 03/16/20 03:08 76 28 40 03/16/20 00:00 Mechanical Ventilator 03/16/20 00:00 65 03/16/20 00:00 97.0 60 15 110/60 (77) 96 03/15/20 23:32 64 20 40 Intake and Output 03/15/20 03/16/20 19:00 07:00 Intake Total 590 ml 570 ml Balance 590 ml 570 ml Intake Free Water 60 ml 150 ml IV Total 110 ml Tube Feeding 420 ml 420 ml Laboratory Tests 03/16/20 03:23: White Blood Count 8.7, Red Blood Count 3.41L, Hemoglobin 10.2#L, Hematocrit 30.2 #L, Mean Corpuscular Volume 89, Mean Corpuscular Hemoglobin 30.0, Mean Corpuscular Hemoglobin Concent 33.8, Red Cell Distribution Width 14.4, Platelet Count 86L, Mean Platelet Volume 9.7, Neutrophils (%) (Auto) , Lymphocytes (%) (Auto) , Monocytes (%) (Auto) , Eosinophils (%) (Auto) , Basophils (%) (Auto) , Differential Total Cells Counted 100, Neutrophils % (Manual) 85H, Lymphocytes % (Manual) 11L, Monocytes % (Manual) 3, Eosinophils % (Manual) 1, Basophils % (Manual) 0, Band Neutrophils 0, Platelet Estimate DecreasedL, Platelet Morphology Normal, Hypochromasia 1+, Anisocytosis 1+, Sodium Level 128L, Potassium Level 3.7, Chloride Level 91L, Carbon Dioxide Level 22, Anion Gap 15, Blood Urea Nitrogen 86H, Creatinine 2.4H, Estimat Glomerular Filtration Rate 21.7, Glucose Level 74, Calcium Level 6.2L, Phosphorus Level 4.0, Magnesium Level 2.0, Total Bilirubin 0.5, Aspartate Amino Transf (AST/SGOT) 37, Alanine Aminotransferase (ALT/SGPT) 23, Alkaline Phosphatase 107, Total Protein 5.4L, Albumin 1.6L, Globulin 3.8, Albumin/Globulin Ratio 0.4L 03/16/20 06:04: POC Whole Blood Glucose 84 03/16/20 13:47: POC Whole Blood Glucose 86 03/16/20 18:23: POC Whole Blood Glucose [Pending] Height (Feet): 5 Height (Inches): 3.00 Weight (Pounds): 128 General Appearance: WD/WN, no apparent distress, alert, lethargic EENT: normal ENT inspection Neck: supple Cardiovascular: normal rate, regular rhythm, no gallop/murmur, no JVD Respiratory/Chest: normal breath sounds, no respiratory distress, no accessory muscle use, decreased breath sounds Abdomen: normal bowel sounds, non tender, soft, no organomegaly, no mass Extremities: non-tender Edema: 2+ Leg (R), 2+ Pedal (L) Neurologic: alert, responsive Skin: warm/dry Assessment/Plan Status Narrative Patient is awake alert quiet eye contact no verbal response in the PSA he does not respond to any question with physical exam and review laboratory and imaging study revealed the patient achieve a stable state that resolved the issue for which she was admitted she is hemodynamically stable her lungs are clear her edema is stable or erythematous her H&H are stable leukocytosis resolved renal function improved visible she still need dialysis and the permacath the issue of higher level of care was not resolved still wait for unit that can handle her dissecting aortic aneurysm we will continue with the daptomycin and IV case repeat laboratory tests will be done in a.m. the Lucas Paul MD, MD Mar 16, 2020 23:39
[2020-03-17] VITALS: BP 105/57
--- NOTE | 2020-03-17 00:01 | Cardiology Progress Note ---
Subjective DATE OF SERVICE: Mar 16, 2020 Heart rates remain in stable range; carvedilol dose advanced slightly in view of aortic dissection. BP parameters stable. CT scan now reveals extensive thoracoabd aortic dissection. Dialysis per renal; last session was 03/13/20 Objective Last 24 Hour Vital Signs Date Time Temp Pulse Resp B/P (MAP) Pulse Ox O2 Delivery O2 Flow Rate FiO2 03/16/20 21:15 61 21 40 03/16/20 20:31 64 121/59 03/16/20 20:00 97.3 64 17 121/59 (79) 97 03/16/20 20:00 40 03/16/20 20:00 Mechanical Ventilator 03/16/20 20:00 71 03/16/20 19:05 71 21 40 03/16/20 16:00 Mechanical Ventilator 03/16/20 16:00 97.9 60 14 103/53 (70) 97 03/16/20 16:00 40 03/16/20 16:00 60 03/16/20 14:42 70 24 40 03/16/20 12:00 63 03/16/20 12:00 40 03/16/20 12:00 97.9 60 18 114/56 (75) 100 03/16/20 12:00 Mechanical Ventilator 03/16/20 10:40 66 20 40 03/16/20 08:06 73 128/68 03/16/20 08:00 98.0 73 23 128/68 (88) 97 03/16/20 08:00 70 03/16/20 08:00 40 03/16/20 08:00 Mechanical Ventilator 03/16/20 07:05 68 22 40 03/16/20 04:00 Mechanical Ventilator 03/16/20 04:00 97.0 67 21 124/72 (89) 95 03/16/20 04:00 40 03/16/20 04:00 67 03/16/20 03:08 76 28 40 03/16/20 00:00 Mechanical Ventilator 03/16/20 00:00 65 03/16/20 00:00 97.0 60 15 110/60 (77) 96 HEENT: Thin Trach secretions RHYTHM: NSR, SB LUNGS: bilateral rhonchi - few, trach site clean CARDIAC: normal rate, regular rhythm, normal S1 and S2 ABDOMEN: normal bowel sounds, non tender, soft, G-Tube intact EXTREMITIES: normal range of motion, non-tender, normal inspection Laboratory Tests Test 03/16/20 03:23 03/16/20 06:04 03/16/20 13:47 03/16/20 18:23 White Blood Count 8.7 K/UL (4.8-10.8) Red Blood Count 3.41 M/UL (4.20-5.40) L Hemoglobin 10.2 G/DL (12.0-16.0) #L Hematocrit 30.2 % (37.0-47.0) #L Mean Corpuscular Volume 89 FL (80-99) Mean Corpuscular Hemoglobin 30.0 PG (27.0-31.0) Mean Corpuscular Hemoglobin Concent 33.8 G/DL (32.0-36.0) Red Cell Distribution Width 14.4 % (11.6-14.8) Platelet Count 86 K/UL (150-450) L Mean Platelet Volume 9.7 FL (6.5-10.1) Neutrophils (%) (Auto) % (45.0-75.0) Lymphocytes (%) (Auto) % (20.0-45.0) Monocytes (%) (Auto) % (1.0-10.0) Eosinophils (%) (Auto) % (0.0-3.0) Basophils (%) (Auto) % (0.0-2.0) Differential Total Cells Counted 100 Neutrophils % (Manual) 85 % (45-75) H Lymphocytes % (Manual) 11 % (20-45) L Monocytes % (Manual) 3 % (1-10) Eosinophils % (Manual) 1 % (0-3) Basophils % (Manual) 0 % (0-2) Band Neutrophils 0 % (0-8) Platelet Estimate Decreased L Platelet Morphology Normal Hypochromasia 1+ Anisocytosis 1+ Sodium Level 128 MMOL/L (136-145) L Potassium Level 3.7 MMOL/L (3.5-5.1) Chloride Level 91 MMOL/L (98-107) L Carbon Dioxide Level 22 MMOL/L (21-32) Anion Gap 15 mmol/L (5-15) Blood Urea Nitrogen 86 mg/dL (7-18) H Creatinine 2.4 MG/DL (0.55-1.30) H Estimat Glomerular Filtration Rate 21.7 mL/min (>60) Glucose Level 74 MG/DL (74-106) Calcium Level 6.2 MG/DL (8.5-10.1) L Phosphorus Level 4.0 MG/DL (2.5-4.9) Magnesium Level 2.0 MG/DL (1.8-2.4) Total Bilirubin 0.5 MG/DL (0.2-1.0) Aspartate Amino Transf (AST/SGOT) 37 U/L (15-37) Alanine Aminotransferase (ALT/SGPT) 23 U/L (12-78) Alkaline Phosphatase 107 U/L (46-116) Total Protein 5.4 G/DL (6.4-8.2) L Albumin 1.6 G/DL (3.4-5.0) L Globulin 3.8 g/dL Albumin/Globulin Ratio 0.4 (1.0-2.7) L POC Whole Blood Glucose 84 MG/DL (74-106) 86 MG/DL (74-106) Pending Test 03/16/20 23:45 POC Whole Blood Glucose 73 MG/DL (74-106) L Assessment/Plan Assessment/Plan Aortic dissections Sepsis with recovered shock Sinus node disease with bradycardia Hx pacemaker explant Ischemic cardiomyopathy - hx CABG? 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 HD/UF per renal Needs higher level of care ultimately for repair of aortic dissection, although may not be a surgical candidate Deni Willams MD Mar 17, 2020 00:01
--- NOTE | 2020-03-17 03:30 | NUR ---
NURSE NOTES: Incontinent care provided, wound dressing changed and repositioned. Oral care done and Pt tolerating well vent setting with O2 sat 97%.
[2020-03-17 04:00] VITALS: BP 97/57
[2020-03-17] MEDS: Metoclopramide 10mg/2ml Inj IVP SCH ×3 (05:21→21:44)
[2020-03-17] MEDS: Renvela 800mg Pkt NG SCH ×2 (05:21→12:50)
[2020-03-17 05:22] LABS: HEMATOCRIT 22.2 % (37.0-47.0); HEMOGLOBIN 7.5 G/DL (12.0-16.0); MEAN CORPUSCULAR VOLUME 88 FL (80-99); PLATELET COUNT 100 K/UL (150-450); RED BLOOD COUNT 2.52 M/UL (4.20-5.40); RED CELL DISTRIBUTION WIDTH 14.4 % (11.6-14.8); WHITE BLOOD COUNT 6.6 K/UL (4.8-10.8)
[2020-03-17] MEDS: Acetaminophen 650mg/20.3ml GT PRN ×2 (06:06→20:09)
--- NOTE | 2020-03-17 06:35 | NUR ---
NURSE HAND-OFF: Important Events on Shift:tolerating vent setting, wound care Patient Status: Diet: Nepro 35cc/hr Pending Orders: Pending Results/Labs: Pending MD notification: Latest Vital Signs: Temperature 97.0 , Pulse 61 , B/P 97 /57 , Respiratory Rate 15 , O2 SAT 96 , Mechanical Ventilator, O2 Flow Rate . Vital Sign Comment: Latest Chavarria Fall Score: 50 Fall Risk: High Risk Safety Measures: Call light Within Reach, Bed Alarm Zone 2, Side Rails Side Rails x2, Bed position Low and Locked. Fall Precautions: Yellow Socks Addendum: 03/17/20 at 0706 by CASPER PARSONS RN RN NURSE NOTES: Report given to ERASMO Lindsay
--- NOTE | 2020-03-17 06:45 | NUR ---
NURSE NOTES: Dr. Mccauley ordered another cbc due to low hgb 7.5 today. Order entered
--- NOTE | 2020-03-17 06:46 | General Progress Note ---
Subjective ROS Limited/Unobtainable: No Allergies: Coded Allergies: No Known Allergies (Unverified , 10/10/17) Objective Last 24 Hour Vital Signs Date Time Temp Pulse Resp B/P (MAP) Pulse Ox O2 Delivery O2 Flow Rate FiO2 03/17/20 05:22 61 15 40 03/17/20 04:00 97.0 57 15 97/57 (70) 96 03/17/20 04:00 40 03/17/20 04:00 54 03/17/20 04:00 Mechanical Ventilator 03/17/20 03:30 64 22 40 03/17/20 01:45 62 23 40 03/17/20 00:00 55 03/17/20 00:00 97.2 57 14 105/57 (73) 99 03/17/20 00:00 40 03/17/20 00:00 Mechanical Ventilator 03/16/20 23:49 59 19 40 03/16/20 21:15 61 21 40 03/16/20 20:31 64 121/59 03/16/20 20:00 97.3 64 17 121/59 (79) 97 03/16/20 20:00 40 03/16/20 20:00 Mechanical Ventilator 03/16/20 20:00 71 03/16/20 19:05 71 21 40 03/16/20 16:00 Mechanical Ventilator 03/16/20 16:00 97.9 60 14 103/53 (70) 97 03/16/20 16:00 40 03/16/20 16:00 60 03/16/20 14:42 70 24 40 03/16/20 12:00 63 03/16/20 12:00 40 03/16/20 12:00 97.9 60 18 114/56 (75) 100 03/16/20 12:00 Mechanical Ventilator 03/16/20 10:40 66 20 40 03/16/20 08:06 73 128/68 03/16/20 08:00 98.0 73 23 128/68 (88) 97 03/16/20 08:00 70 03/16/20 08:00 40 03/16/20 08:00 Mechanical Ventilator 03/16/20 07:05 68 22 40 Intake and Output 03/16/20 03/17/20 19:00 07:00 Intake Total 640 ml 695 ml Output Total 2100 ml 5 ml Balance -1460 ml 690 ml Intake Free Water 60 ml 200 ml IV Total 160 ml 110 ml Tube Feeding 420 ml 385 ml Output Urine Total 100 ml 5 ml Hemodialysis UF 2000 ml Laboratory Tests 03/16/20 13:47: POC Whole Blood Glucose 86 03/16/20 18:23: POC Whole Blood Glucose [Pending] 03/16/20 23:45: POC Whole Blood Glucose 73L 03/17/20 03:30: White Blood Count 6.6, Red Blood Count 2.52L, Hemoglobin 7.5L, Hematocrit 22.2L, Mean Corpuscular Volume 88, Mean Corpuscular Hemoglobin 29.6, Mean Corpuscular Hemoglobin Concent 33.6, Red Cell Distribution Width 14.4, Platelet Count 100L, Mean Platelet Volume 9.7, Neutrophils (%) (Auto) , Lymphocytes (%) (Auto) , M onocytes (%) (Auto) , Eosinophils (%) (Auto) , Basophils (%) (Auto) , Hepatitis B Surface Antigen [Pending] 03/17/20 06:08: POC Whole Blood Glucose 83 Height (Feet): 5 Height (Inches): 3.00 Weight (Pounds): 128 General Appearance: lethargic EENT: normal ENT inspection Neck: supple Cardiovascular: normal rate Respiratory/Chest: decreased breath sounds Abdomen: hypoactive bowel sounds Extremities: non-tender Assessment/Plan Problem List: (1) Hx of CABG ICD Codes: Z95.1 - Presence of aortocoronary bypass graft SNOMED: 463796696, 250426872 (2) History of tracheostomy ICD Codes: Z98.890 - Other specified postprocedural states SNOMED: 182425229, 272185458 (3) PEG (percutaneous endoscopic gastrostomy) status ICD Codes: Z93.1 - Gastrostomy status SNOMED: 653757998, 461137146 (4) Renal failure ICD Codes: N19 - Unspecified kidney failure SNOMED: 98879947, 133907831 (5) Severe anemia ICD Codes: D64.9 - Anemia, unspecified SNOMED: 292968557 Assessment/Plan: s/p EGD gastric ulcer on ppi and carafate fu H&H s/p one unit PRBC 03/11/20, 03/15 GTF drop in H&H again without obvious bleeding per nurses no BM plan repeat cbc today and treat accordingly Inder Mccauley MD Mar 17, 2020 06:46
--- NOTE | 2020-03-17 06:51 | Hematology/Onc Progress Note ---
Assessment/Plan Assessment/Plan # Leukocytosis, now with likely bacteremia, as per ID care --> Cxr: : Large left abiola consolidation/effusion --> wbc 30-->40-->27->30->29-->35->32-->28-->21->10.2-->6.6 --> ABX angelo/vanc-->tobra/edson/vanc-->dapto/ceftazadine --> smear reviewed --> ID recs are noted # Elevated tumor markers, cea and ca 19.9 --> reviewed prior 01/27/20 cat scan a/p --> no masses noted, hold off further extensive w/u # Thrombocytopenia likely reactive v medication indcued --> plt 200-->129->91-->86->100 --> r/o dic --> anticoag as needed # Anemia of chronic disease due to underlying chronic medical issues, multifactorial --> Anemia workup has been reviewed, cw acd --> No evidence of hemolysis is noted, peripheral smear has been reviewed. --> Hgb goal >7. Transfuse prn. --> Epogen required in prior --> Medications have been reviewed --> low threshold for gi evaluation in case has occult + --> hgb 1.9-->5-->7.1-->8.8-->8.1->7.5-> 8.2 --> 1 unit prbc10/17, 2 units 12/, 03/02 --> gi eval as needed # Coagulopathy with inr 1.5 --> consider vit k/ffp as needed preprocedure --> labs noted # Aortic dissection as seen on Ct ==> when stable, consider transfer hloc # JAVIER initially >2 --> on ivfs --> per renal # Elevated d-dimer, likely infection related --> venous duplex prior neg --> in prior neg # Dysphagia s/p peg --> as per gi # Thoracic aortic dissection --> s/p repair early 2017 # Chronic Resp failure -> s/p trach/vent # Psychiatric history on ativan/haldol # [place] resident # Dvt ppx --> scds The timing of this note does not necessarily reflect the time of the patient was seen. Greatly appreciate consultation. Subjective HEENT: Denies: no symptoms, eye pain, blurred vision, tearing, double vision, ear pain, ear discharge, nose pain, nose congestion, throat pain, throat swelling, mouth pain, mouth swelling, other Cardiovascular: Denies: no symptoms, chest pain, edema, irregular heart rate, lightheadedness, palpitations, syncope, other Gastrointestinal/Abdominal: Denies: no symptoms, abdomen distended, abdominal pain, black stools, tarry stools, blood in stool, constipated, diarrhea, difficulty swallowing, nausea, poor appetite, poor fluid intake, rectal bleeding, vomiting, other Genitourinary: Denies: no symptoms, burning, discharge, frequency, flank pain, hematuria, incontinence, pain, urgency, other Neurologic/Psychiatric: Denies: no symptoms, anxiety, depressed, emotional problems, headache, numbness, paresthesia, pre-existing deficit, seizure, tingling, tremors, weakness, other Endocrine: Denies: no symptoms, excessive sweating, flushing, intolerance to cold, intolerance to heat, increased hunger, increased thirst, increased urine, unexplained weight gain, unexplained weight loss, other Hematologic/Lymphatic: Denies: no symptoms, anemia, easy bleeding, easy bruising, adenopathy, other Allergies: Coded Allergies: No Known Allergies (Unverified , 10/10/17) Subjective 03/04 for 1 unit transfusion this am as hgb remains low, wbc better 03/05 egd was done did show large nonbleeding gastric ulcer, high tumor markers 03/06 nv, with davis overnight, bp remains stable, with occult + stool, roman Rn 03/09 nv, remains stable, on vanc/tobra/edson, meds reviewed, no bleeding 03/10 nv, on vent, no bleeding, receiving abx, no night sweats 03/11 nv, rom[facility] surgeon and pcp, with [facility] 03/12 nv, labs reviewed, wbc 21, hgb 7.5, otherwise is comfortable 03/13 nv, labs noted, no bleeding, wbc 13, hgb improved, meds reviewed 03/15 nv, meds reviewed, labs noted, no bleeding, on vent 03/16 nv/tv, peg, meds noted, hgb remains stable, improved to 10 03/17 s/p egd, with gastric ulceration noted, hgb stable Objective Objective Current Medications Medications (Trade) Dose Ordered Sig/Penny Route PRN Reason Start Time Stop Time Status Last Admin Dose Admin Acetaminophen (Tylenol) 650 mg Q6H PRN GT Mild Pain (Pain Scale 1-3) 03/02/20 22:30 04/01/20 22:29 03/17/20 06:06 Acetaminophen (Tylenol) 650 mg Q6H PRN GT Temp >100.5 03/03/20 03:00 04/01/20 22:29 Aspirin (ASA) 81 mg DAILY GT 03/07/20 09:00 04/21/20 08:59 03/16/20 08:05 Carvedilol (Coreg) 6.25 mg EVERY 12 HOURS GT 03/14/20 21:00 04/13/20 20:59 03/16/20 20:31 Ceftazidime/ Avibactam 0.94 gm/ Dextrose 110 ml @ 110 mls/hr Q12HR IV 03/06/20 13:00 03/20/20 23:59 03/16/20 22:11 Chlorhexidine Gluconate (Ling-Hex 2%) 1 applic DAILY@2000 TOPIC 03/03/20 20:00 06/01/20 19:59 03/16/20 20:30 Daptomycin 500 mg/ Sodium Chloride 50 ml @ 100 mls/hr Q48H IV 03/10/20 13:00 03/21/20 23:59 03/16/20 13:08 Dextrose (Dextrose 50%) 25 ml Q30M PRN IV Hypoglycemia 03/15/20 07:30 06/13/20 07:29 Dextrose (Dextrose 50%) 50 ml Q30M PRN IV Hypoglycemia 03/15/20 07:30 06/13/20 07:29 Hydralazine HCl (Apresoline) 25 mg Q6H PRN GT For High Blood Pressure 03/02/20 22:00 05/31/20 21:59 Loperamide HCl (Imodium) 2 mg Q6H PRN GT Diarrhea 03/06/20 12:45 04/05/20 12:44 03/06/20 13:01 Metoclopramide HCl (Reglan) 5 mg Q8HR IVP 03/04/20 11:45 04/03/20 11:44 03/17/20 05:21 Midodrine (Pro-Amatine) 10 mg THREE TIMES A DAY GT 03/04/20 13:00 06/01/20 12:59 03/16/20 17:27 Pantoprazole (Protonix) 40 mg EVERY 12 HOURS IVP 03/04/20 21:00 04/02/20 20:59 03/16/20 20:31 Polyethylene Glycol (Miralax) 17 gm BEDTIME PRN GT Constipation 03/02/20 22:00 04/01/20 21:59 Sevelamer Carbonate (Renvela) 1,600 mg Q6HR NG 03/11/20 12:00 06/08/20 11:59 03/17/20 05:21 Sodium Hypochlorite (Dakin's Quarter Strength) 1 applic DAILY TOPIC 03/04/20 09:00 04/03/20 08:59 03/16/20 08:06 Sucralfate (Carafate) 1 gm FOUR TIMES A DAY GT 03/11/20 09:00 06/09/20 08:59 03/16/20 20:30 Last 24 Hour Vital Signs Date Time Temp Pulse Resp B/P (MAP) Pulse Ox O2 Delivery O2 Flow Rate FiO2 03/17/20 05:22 61 15 40 03/17/20 04:00 97.0 57 15 97/57 (70) 96 03/17/20 04:00 40 03/17/20 04:00 54 03/17/20 04:00 Mechanical Ventilator 03/17/20 03:30 64 22 40 03/17/20 01:45 62 23 40 03/17/20 00:00 55 03/17/20 00:00 97.2 57 14 105/57 (73) 99 03/17/20 00:00 40 03/17/20 00:00 Mechanical Ventilator 03/16/20 23:49 59 19 40 03/16/20 21:15 61 21 40 03/16/20 20:31 64 121/59 03/16/20 20:00 97.3 64 17 121/59 (79) 97 03/16/20 20:00 40 03/16/20 20:00 Mechanical Ventilator 03/16/20 20:00 71 03/16/20 19:05 71 21 40 03/16/20 16:00 Mechanical Ventilator 03/16/20 16:00 97.9 60 14 103/53 (70) 97 03/16/20 16:00 40 03/16/20 16:00 60 03/16/20 14:42 70 24 40 03/16/20 12:00 63 03/16/20 12:00 40 03/16/20 12:00 97.9 60 18 114/56 (75) 100 03/16/20 12:00 Mechanical Ventilator 03/16/20 10:40 66 20 40 03/16/20 08:06 73 128/68 03/16/20 08:00 98.0 73 23 128/68 (88) 97 03/16/20 08:00 70 03/16/20 08:00 40 03/16/20 08:00 Mechanical Ventilator 03/16/20 07:05 68 22 40 03/16/20 04:00 Mechanical Ventilator 03/16/20 04:00 97.0 67 21 124/72 (89) 95 03/16/20 04:00 40 03/16/20 04:00 67 03/16/20 03:08 76 28 40 03/16/20 00:00 Mechanical Ventilator 03/16/20 00:00 65 03/16/20 00:00 97.0 60 15 110/60 (77) 96 03/15/20 23:32 64 20 40 03/15/20 21:02 60 119/66 03/15/20 20:00 Mechanical Ventilator 03/15/20 20:00 97.9 60 18 119/66 (83) 100 03/15/20 20:00 40 03/15/20 20:00 60 03/15/20 19:22 62 20 40 03/15/20 17:05 60 23 40 03/15/20 16:00 Mechanical Ventilator 03/15/20 16:00 40 03/15/20 16:00 97.2 58 21 115/66 (82) 98 03/15/20 15:53 58 03/15/20 15:15 61 23 40 03/15/20 13:28 61 16 40 03/15/20 12:00 63 03/15/20 12:00 97.0 55 20 127/76 (93) 94 03/15/20 12:00 Mechanical Ventilator 03/15/20 12:00 40 03/15/20 11:03 62 18 40 03/15/20 08:54 60 17 40 03/15/20 08:27 61 111/56 03/15/20 08:00 60 03/15/20 08:00 97.5 61 18 111/56 (74) 97 03/15/20 08:00 Mechanical Ventilator 03/15/20 08:00 40 03/15/20 07:10 61 17 40 Intake and Output 03/16/20 03/17/20 19:00 07:00 Intake Total 640 ml 695 ml Output Total 2100 ml 5 ml Balance -1460 ml 690 ml Intake Free Water 60 ml 200 ml IV Total 160 ml 110 ml Tube Feeding 420 ml 385 ml Output Urine Total 100 ml 5 ml Hemodialysis UF 2000 ml Labs Test 03/14/20 12:31 03/14/20 18:55 03/15/20 00:06 03/15/20 04:02 POC Whole Blood Glucose 89 MG/DL (74-106) 80 MG/DL (74-106) 82 MG/DL (74-106) White Blood Count 9.4 K/UL (4.8-10.8) Red Blood Count 2.49 M/UL (4.20-5.40) Hemoglobin 7.4 G/DL (12.0-16.0) Hematocrit 21.9 % (37.0-47.0) Mean Corpuscular Volume 88 FL (80-99) Mean Corpuscular Hemoglobin 29.8 PG (27.0-31.0) Mean Corpuscular Hemoglobin Concent 33.9 G/DL (32.0-36.0) Red Cell Distribution Width 15.0 % (11.6-14.8) Platelet Count 82 K/UL (150-450) Mean Platelet Volume 10.8 FL (6.5-10.1) Neutrophils (%) (Auto) % (45.0-75.0) Lymphocytes (%) (Auto) % (20.0-45.0) Monocytes (%) (Auto) % (1.0-10.0) Eosinophils (%) (Auto) % (0.0-3.0) Basophils (%) (Auto) % (0.0-2.0) Differential Total Cells Counted 100 Neutrophils % (Manual) 85 % (45-75) Lymphocytes % (Manual) 10 % (20-45) Monocytes % (Manual) 2 % (1-10) Eosinophils % (Manual) 3 % (0-3) Basophils % (Manual) 0 % (0-2) Band Neutrophils 0 % (0-8) Platelet Estimate Decreased Platelet Morphology Normal Hypochromasia 1+ Anisocytosis 1+ Sodium Level 131 MMOL/L (136-145) Potassium Level 3.5 MMOL/L (3.5-5.1) Chloride Level 94 MMOL/L (98-107) Carbon Dioxide Level 23 MMOL/L (21-32) Anion Gap 14 mmol/L (5-15) Blood Urea Nitrogen 79 mg/dL (7-18) Creatinine 2.3 MG/DL (0.55-1.30) Estimat Glomerular Filtration Rate 22.7 mL/min (>60) Glucose Level 75 MG/DL (74-106) Calcium Level 6.1 MG/DL (8.5-10.1) Phosphorus Level 4.0 MG/DL (2.5-4.9) Magnesium Level 1.8 MG/DL (1.8-2.4) Total Bilirubin 0.5 MG/DL (0.2-1.0) Aspartate Amino Transf (AST/SGOT) 35 U/L (15-37) Alanine Aminotransferase (ALT/SGPT) 20 U/L (12-78) Alkaline Phosphatase 101 U/L (46-116) C-Reactive Protein, Quantitative 8.3 mg/dL (0.00-0.90) Pro-B-Type Natriuretic Peptide > 61628 pg/mL (0-125) Total Protein 4.9 G/DL (6.4-8.2) Albumin 1.5 G/DL (3.4-5.0) Globulin 3.4 g/dL Albumin/Globulin Ratio 0.4 (1.0-2.7) Test 03/15/20 05:57 03/15/20 11:55 03/15/20 16:57 03/15/20 23:27 POC Whole Blood Glucose 79 MG/DL (74-106) 85 MG/DL (74-106) 86 MG/DL (74-106) 92 MG/DL (74-106) Test 03/16/20 03:23 03/16/20 06:04 03/16/20 13:47 03/16/20 18:23 White Blood Count 8.7 K/UL (4.8-10.8) Red Blood Count 3.41 M/UL (4.20-5.40) Hemoglobin 10.2 G/DL (12.0-16.0) Hematocrit 30.2 % (37.0-47.0) Mean Corpuscular Volume 89 FL (80-99) Mean Corpuscular Hemoglobin 30.0 PG (27.0-31.0) Mean Corpuscular Hemoglobin Concent 33.8 G/DL (32.0-36.0) Red Cell Distribution Width 14.4 % (11.6-14.8) Platelet Count 86 K/UL (150-450) Mean Platelet Volume 9.7 FL (6.5-10.1) Neutrophils (%) (Auto) % (45.0-75.0) Lymphocytes (%) (Auto) % (20.0-45.0) Monocytes (%) (Auto) % (1.0-10.0) Eosinophils (%) (Auto) % (0.0-3.0) Basophils (%) (Auto) % (0.0-2.0) Differential Total Cells Counted 100 Neutrophils % (Manual) 85 % (45-75) Lymphocytes % (Manual) 11 % (20-45) Monocytes % (Manual) 3 % (1-10) Eosinophils % (Manual) 1 % (0-3) Basophils % (Manual) 0 % (0-2) Band Neutrophils 0 % (0-8) Platelet Estimate Decreased Platelet Morphology Normal Hypochromasia 1+ Anisocytosis 1+ Sodium Level 128 MMOL/L (136-145) Potassium Level 3.7 MMOL/L (3.5-5.1) Chloride Level 91 MMOL/L (98-107) Carbon Dioxide Level 22 MMOL/L (21-32) Anion Gap 15 mmol/L (5-15) Blood Urea Nitrogen 86 mg/dL (7-18) Creatinine 2.4 MG/DL (0.55-1.30) Estimat Glomerular Filtration Rate 21.7 mL/min (>60) Glucose Level 74 MG/DL (74-106) Calcium Level 6.2 MG/DL (8.5-10.1) Phosphorus Level 4.0 MG/DL (2.5-4.9) Magnesium Level 2.0 MG/DL (1.8-2.4) Total Bilirubin 0.5 MG/DL (0.2-1.0) Aspartate Amino Transf (AST/SGOT) 37 U/L (15-37) Alanine Aminotransferase (ALT/SGPT) 23 U/L (12-78) Alkaline Phosphatase 107 U/L (46-116) Total Protein 5.4 G/DL (6.4-8.2) Albumin 1.6 G/DL (3.4-5.0) Globulin 3.8 g/dL Albumin/Globulin Ratio 0.4 (1.0-2.7) POC Whole Blood Glucose 84 MG/DL (74-106) 86 MG/DL (74-106) Test 03/16/20 23:45 03/17/20 03:30 03/17/20 06:08 POC Whole Blood Glucose 73 MG/DL (74-106) 83 MG/DL (74-106) White Blood Count 6.6 K/UL (4.8-10.8) Red Blood Count 2.52 M/UL (4.20-5.40) Hemoglobin 7.5 G/DL (12.0-16.0) Hematocrit 22.2 % (37.0-47.0) Mean Corpuscular Volume 88 FL (80-99) Mean Corpuscular Hemoglobin 29.6 PG (27.0-31.0) Mean Corpuscular Hemoglobin Concent 33.6 G/DL (32.0-36.0) Red Cell Distribution Width 14.4 % (11.6-14.8) Platelet Count 100 K/UL (150-450) Mean Platelet Volume 9.7 FL (6.5-10.1) Neutrophils (%) (Auto) % (45.0-75.0) Lymphocytes (%) (Auto) % (20.0-45.0) Monocytes (%) (Auto) % (1.0-10.0) Eosinophils (%) (Auto) % (0.0-3.0) Basophils (%) (Auto) % (0.0-2.0) Height (Feet): 5 Height (Inches): 3.00 Weight (Pounds): 128 Objective Physical Exam: Vitals: reviewed General: NAD HEENT: nc, at Neck: supple ++trach/vent Chest: clear breath sounds bilaterally Cardiovascular: RRR, no s3, s4 Abdomen: soft, nontender, nd +gtube Extremities: no cce, normal range of motion Neuro: alert Evan Muhammad MD Mar 17, 2020 06:51
--- NOTE | 2020-03-17 07:15 | NUR ---
NURSE NOTES: Received report from ERASMO Jarvis. Patient in bed resting, no active s/s cardiac, respiratory distress noticed at this time. Patient SR with HR 62. Trach to vent, Shiley 7 AC 14 TV 500 Fio2 40%, O2 sat 94% at this time. Endorsed HD done yesterday 2L out. Per DR. Mccauley, another CBC, made aware no BM, no s/s bleeding noted at this time. HD access on PermaCath right upper chest, asymptomatic, patent, intact. IV on left FA 22G, right hand 22G, asymptomatic, patent, intact. GT feeding on Nephro @ 35ml/h, patent, intact. Bed in lowest position, side rails upx3, call light within reach, bed alarm on ,Will continue to monitor.
[2020-03-17 08:00] VITALS: BP 118/49
[2020-03-17 08:05] LABS: HEMATOCRIT 21.1 % (37.0-47.0); HEMOGLOBIN 7.2 G/DL (12.0-16.0); MEAN CORPUSCULAR VOLUME 87 FL (80-99); PLATELET COUNT 90 K/UL (150-450); RED BLOOD COUNT 2.41 M/UL (4.20-5.40); RED CELL DISTRIBUTION WIDTH 14.2 % (11.6-14.8); WHITE BLOOD COUNT 6.8 K/UL (4.8-10.8)
[2020-03-17] MEDS: CEFTAZIDIME IV SCH ×2 (08:50→21:00)
[2020-03-17] MEDS: AVIBACTAM IV SCH ×2 (08:50→21:00)
[2020-03-17] MEDS: D5W IV SCH ×2 (08:50→21:00)
[2020-03-17] MEDS: Midodrine 10mg tab GT SCH ×3 (08:51→21:44)
[2020-03-17] MEDS: Sucralfate 1gm tab GT SCH ×3 (08:51→17:16)
[2020-03-17] MEDS: Aspirin Baby 81mg GT SCH (08:52)
[2020-03-17] MEDS: Dakin's 0.125% Soln (Quarter Strength) 16oz TOPIC SCH (08:52)
[2020-03-17] MEDS: Pantoprazole Inj IVP SCH ×2 (08:52→21:44)
[2020-03-17] MEDS: Carvedilol 6.25mg Tab GT SCH ×2 (08:52→21:45)
--- NOTE | 2020-03-17 09:05 | Infectious Diseases Prog Note ---
Assessment/Plan 49yo F with: MDR Kleb pna bacteremia AMS Anemia to 1.9 on admission 03/02 Leukocytosis to 40, improving GPC bacteremia UTI Pneumonia c/b mod-large R pleural effusion and small L pleural effusion - compressive atelectasis Hypotension 03/02 BCx 1/2 +Staph epi, 12 +Staph haemolyticus (m/l skin colonizers) UA+, UCx >100k P.stuartii (S-angelo) & CRE P.mirablis (R-polyB/colistin, S- tobramycin, per [facility] is "intrinsically resistant to Avycaz/Zerbaxa" not clear why to me and they are unable to elaborate more) COVID rapid neg, PCR neg CXR: Tracheostomy again demonstrated. Interim placement of a right jugular tunneled dialysis catheter. There is infiltrate and volume loss in the left lung, particularly in the perihilar region, suprahilar region, and base. Consolidation at the lung base is similar. The perihilar and suprahilar region consolidation is new. The right lung pleural space are clear. C.dif neg 03/03 BCx NTD 03/06 BCx 2/2 +MDR Kleb pna (arnett-R, including R-polyB, colistin), 02/14 +E.faecium VRE (R-amp, S-linezolid) 03/08 BCx NTD 03/09 CT CAP: Very limited exam, as described, due to massive anasarca. This could limit visualization of the discrete fluid collection such as an abscess. Extensive thoracoabdominal aortic dissection, as described above. Current flap begins just distal to the left subclavian artery origin; per report, there is history of surgical repair so there may have been surgical repair of the ascending thoracic aorta. Bilateral pleural effusions, slightly smaller than on earlier exams. Extensive atelectasis as a result. Extensive pulmonary par enchymal disease as detailed above. This may reflect pneumonia or pulmonary edema or both. Evidence of pulmonary arterial hypertension, with dilatation of the pulmonary artery. Considerable ascites fluid. 03/11 Chest US: Small right, trace left pleural effusions, insufficient for safe thoracentesis AF Sepsis Leukocytosis Hypoxia on vent Pneumonia c/b L pleural effusion (recurrent, prior determined to be transudative) - s/p thora 01/21, 1050cc removed Volume overload, BNP >35,0000, likely 2/2 progressive CKD --> ESRD ?Pancreatitis, Lipase >2000 Acute anemia to 5s CONS bacteremia, ?contaminant Aflutter w/ RVR 01/13 BCx 2/2 +S. epi COVID PCR neg Flu neg CXR: Large left pleural effusion. Bilateral interstitial and airspace infiltrates versus edema MRSA nares neg 01/16 BCx NTD 01/17 BCx /2 +Staph auricularis (skin colonizer) 01/18 Resp cx +MDR CRE PsA (S-gent, I-colistin, R-polyB) (Intermediate to Zerbaxa, Resistant to Avycaz) 01/18 C.dif neg 01/18 CXR: Similar opacification of the left hemithorax likely representing combination of pleural effusion with atelectasis versus pneumonia/edema. Decreased but persistent hazy opacity throughout the right lung may represent edema versus infectious/inflammatory process. 01/20 BCx NTD 01/21 L thora 1050 cc removed, cx NTD 01/25 Wound cx from Gtube site +CRE Kleb pna (arnett-R) and MDR PsA (colonizers) 01/26 CT A/P: Limited exam, due to severe diffuse anasarca. Ascites. Bilateral pleural effusions. Basilar pulmonary atelectatic changes and consolidation. Gastrostomy. Atrophic left kidney with a nephroureteral stents again demonstrated. Possible retrococcygeal decubitus changes. Correlate with clinical findings, consider MRI if there is concern for sacral osteomyelitis. Right hip intertrochanteric fracture, also previously demonstrated. Left femoral dialysis catheter. Nonspecific right lobe liver lesion is unchanged, not well- demonstrated. ctasia bordering on aneurysmal dilatation and possible chronic dissection of the distal thoracic aorta, also previously described. JAVIER on CKD On previous admission Sep-Oct 2019 required HD for short period Going to start HD this admission again R/o COVID 01/14 COVID PCR neg 12/29 neg at [facility] per report H/o UTI 10/15 u/a wbc 30-40, nit neg, leuk +3; ucx ESBL P. mirablis, ESBL M. morganii //20 u/a wbc tnct, nit neg, leuk +3; ucx >100k MDR P. stuarti (S Ceftriaxone, Meropenem) 8/25 u/a wbc tnct, nit neg, leuk ; ucx >100k VRE 10/15/19 u/a wbc tnct; ucx >100k ESBL P. stuarti (S ertapenem, aztreonam) H/o transudative pleural effusion 11/28 Sp Thora (w: 169, PMN: 2%, L: 49% , LDH: 57, prot 2.5); cx Neg H/o PNA 10/15/19 Resp cx ESBL P. mirabilis, MDR P.a. (S only to Gent) 09/22 Resp cx + MDR PsA (S-gent; I-colistin; R-levofloxacin, Zosyn, angelo) 09/16/19 Sp cx ESBL P. mirablis H/o PPM site (pocket) infection and pocket abscess 2ry to S. epi-11/2018, sp >6weeks IV vancomycin 11/27 SP ABBIE: no evidence for vegetation on any of the valves 11/26/18 SP PPM removal: OR findings:The fibrous capsule enclosing the generator was then opened and there was a [id number] amount of yellowish fluid drainage. The generator was then removed.Atrial and ventricular leads were detached. The necrotic tissue of the pocket was then removed and the pocket was flushed with an antibiotic solution. Capsule, wound tissue and lead tip cx: Neg 2d echo: no vegetation seen US chest: 4.6 x 3.4 x 0.9 cm hypoechoic/anechoic area overlying left chest pacemaker power pack. This could represent either a discrete fluid collection or a focal area of very edematous tissue. Infected fluid pocket also possible. 11/18 Bcx 3/4 S. epi; 11/20 Bcx neg; 11/24 Bcx Neg; 11/27 Bcx Neg CAD s/p CABG GERD/gastritis Afib HTN Dysphagia sp GT Aortic dissection s/p repair 2017 S/p PPM Parkinson's Disease Schizophrenia Anxiety COPD Chronic resp failure s/p trach Hx of tracheal bleeding [place] resident ([facility]) VRE and MRSA colonized Plan: Cont daptomycin #8 given transient VRE bacteremia, sepsis - will need 14 day course from neg BCx 03/08, end date 03/21 CK on 03/13 = 173 (decreasing), next check 03/20 Cont Avycaz #12 given MDR Kleb pna bacteremia - will need 14 day course from neg BCx 03/08, end date 03/21 Appreciate Surgery input on thoracic aortic aneurysm noted on CT imaging - d/w Dr. Saavedra, pt needs emergent transfer out to [facility] for CT surgery evaluation, primary MD aware Given somewhat transient MDR Kleb pna bacteremia (was not on admission BCx and cleared rapidly after positive BCx), no current indication to remove Permacath as less likely 2/2 line infection and more likely 2/2 gut translocation in setting of GIB, though if leukocytosis persists despite appropriate abx, then will have to reconsider. F/u 03/06 BCx +MDR Kleb pna - need sensi to Avycaz/Zerbaxa (d/w lab, will perform) Trend Hg, GIB Trend BP, WBC 03/16 SP tobramycin IV #10 for resistant UTI 03/10/20 SP edson #4 empiric, vanco #9 01/31 SP angelo/inh tobra #10 for pna 01/23 SP vanco IV #10 given CONS/GPC bacteremia 01/16 SP Zosyn #2 01/14 SP dex 10mg in ED 12/10 SP IV Gentamycin #10 12/07 SP Meropenem #10 12/01 SP IV Vancomycin #5 11/28 Sp Cefepime #2 and IV Gentamycin x1 Monitor CBC/CMP Monitor temp curve, hemodynamics Monitor resp status D/w RN Thank you for this consult. [facility] will continue to follow. Subjective Allergies: Coded Allergies: No Known Allergies (Unverified , 10/10/17) AF Remains stable on vent 40% PEEP 5 Awaiting transfer to [facility] WBC 6.8 Objective Last 24 Hour Vital Signs Date Time Temp Pulse Resp B/P (MAP) Pulse Ox O2 Delivery O2 Flow Rate FiO2 03/17/20 08:52 56 110/49 03/17/20 05:22 61 15 40 03/17/20 04:00 97.0 57 15 97/57 (70) 96 03/17/20 04:00 40 03/17/20 04:00 54 03/17/20 04:00 Mechanical Ventilator 03/17/20 03:30 64 22 40 03/17/20 01:45 62 23 40 03/17/20 00:00 55 03/17/20 00:00 97.2 57 14 105/57 (73) 99 2/2/21 00:00 40 03/17/20 00:00 Mechanical Ventilator 03/16/20 23:49 59 19 40 03/16/20 21:15 61 21 40 03/16/20 20:31 64 121/59 03/16/20 20:00 97.3 64 17 121/59 (79) 97 03/16/20 20:00 40 03/16/20 20:00 Mechanical Ventilator 03/16/20 20:00 71 03/16/20 19:05 71 21 40 03/16/20 16:00 Mechanical Ventilator 03/16/20 16:00 97.9 60 14 103/53 (70) 97 03/16/20 16:00 40 03/16/20 16:00 60 03/16/20 14:42 70 24 40 03/16/20 12:00 63 03/16/20 12:00 40 03/16/20 12:00 97.9 60 18 114/56 (75) 100 03/16/20 12:00 Mechanical Ventilator 03/16/20 10:40 66 20 40 Height (Feet): 5 Height (Inches): 3.00 Weight (Pounds): 128 Gen: NAD HEENT: NCAT, trach Pulm: BL chest rise on vent Abd: Soft, NTND, +PEG Ext: No c/c/e Skin: No visible rashes Neuro: Awake, minimally interactive Lines: R chest Permacath dressing c/d/i Laboratory Tests Test 03/16/20 13:47 03/16/20 18:23 03/16/20 23:45 03/17/20 03:30 POC Whole Blood Glucose 86 MG/DL (74-106) Pending 73 MG/DL (74-106) L White Blood Count 6.6 K/UL (4.8-10.8) Red Blood Count 2.52 M/UL (4.20-5.40) L Hemoglobin 7.5 G/DL (12.0-16.0) L Hematocrit 22.2 % (37.0-47.0) L Mean Corpuscular Volume 88 FL (80-99) Mean Corpuscular Hemoglobin 29.6 PG (27.0-31.0) Mean Corpuscular Hemoglobin Concent 33.6 G/DL (32.0-36.0) Red Cell Distribution Width 14.4 % (11.6-14.8) Platelet Count 100 K/UL (150-450) L Mean Platelet Volume 9.7 FL (6.5-10.1) Neutrophils (%) (Auto) % (45.0-75.0) Lymphocytes (%) (Auto) % (20.0-45.0) Monocytes (%) (Auto) % (1.0-10.0) Eosinophils (%) (Auto) % (0.0-3.0) Basophils (%) (Auto) % (0.0-2.0) Hepatitis B Surface Antigen Pending Test 03/17/20 06:08 03/17/20 07:50 POC Whole Blood Glucose 83 MG/DL (74-106) White Blood Count 6.8 K/UL (4.8-10.8) Red Blood Count 2.41 M/UL (4.20-5.40) L Hemoglobin 7.2 G/DL (12.0-16.0) L Hematocrit 21.1 % (37.0-47.0) L Mean Corpuscular Volume 87 FL (80-99) Mean Corpuscular Hemoglobin 30.0 PG (27.0-31.0) Mean Corpuscular Hemoglobin Concent 34.4 G/DL (32.0-36.0) Red Cell Distribution Width 14.2 % (11.6-14.8) Platelet Count 90 K/UL (150-450) L Mean Platelet Volume 10.5 FL (6.5-10.1) H Neutrophils (%) (Auto) % (45.0-75.0) Lymphocytes (%) (Auto) % (20.0-45.0) Monocytes (%) (Auto) % (1.0-10.0) Eosinophils (%) (Auto) % (0.0-3.0) Basophils (%) (Auto) % (0.0-2.0) Neutrophils % (Manual) Pending Lymphocytes % (Manual) Pending Platelet Estimate Pending Platelet Morphology Pending Current Medications Medications (Trade) Dose Ordered Sig/Penny Route PRN Reason Start Time Stop Time Status Last Admin Dose Admin Acetaminophen (Tylenol) 650 mg Q6H PRN GT Mild Pain (Pain Scale 1-3) 03/02/20 22:30 04/01/20 22:29 03/17/20 06:06 Acetaminophen (Tylenol) 650 mg Q6H PRN GT Temp >100.5 03/03/20 03:00 04/01/20 22:29 Aspirin (ASA) 81 mg DAILY GT 03/07/20 09:00 04/21/20 08:59 03/16/20 08:05 Carvedilol (Coreg) 6.25 mg EVERY 12 HOURS GT 03/14/20 21:00 04/13/20 20:59 03/16/20 20:31 Ceftazidime/ Avibactam 0.94 gm/ Dextrose 110 ml @ 110 mls/hr Q12HR IV 03/06/20 13:00 03/20/20 23:59 03/17/20 08:50 Chlorhexidine Gluconate (Ling-Hex 2%) 1 applic DAILY@2000 TOPIC 03/03/20 20:00 06/01/20 19:59 03/16/20 20:30 Daptomycin 500 mg/ Sodium Chloride 50 ml @ 100 mls/hr Q48H IV 03/10/20 13:00 03/21/20 23:59 03/16/20 13:08 Dextrose (Dextrose 50%) 25 ml Q30M PRN IV Hypoglycemia 03/15/20 07:30 06/13/20 07:29 Dextrose (Dextrose 50%) 50 ml Q30M PRN IV Hypoglycemia 03/15/20 07:30 06/13/20 07:29 Hydralazine HCl (Apresoline) 25 mg Q6H PRN GT For High Blood Pressure 03/02/20 22:00 05/31/20 21:59 Loperamide HCl (Imodium) 2 mg Q6H PRN GT Diarrhea 03/06/20 12:45 04/05/20 12:44 03/06/20 13:01 Metoclopramide HCl (Reglan) 5 mg Q8HR IVP 03/04/20 11:45 04/03/20 11:44 03/17/20 05:21 Midodrine (Pro-Amatine) 10 mg THREE TIMES A DAY GT 03/04/20 13:00 06/01/20 12:59 03/17/20 08:51 Pantoprazole (Protonix) 40 mg EVERY 12 HOURS IVP 03/04/20 21:00 04/02/20 20:59 03/17/20 08:52 Polyethylene Glycol (Miralax) 17 gm BEDTIME PRN GT Constipation 03/02/20 22:00 04/01/20 21:59 Sevelamer Carbonate (Renvela) 1,600 mg Q6HR NG 03/11/20 12:00 06/08/20 11:59 03/17/20 05:21 Sodium Hypochlorite (Dakin's Quarter Strength) 1 applic DAILY TOPIC 03/04/20 09:00 04/03/20 08:59 03/17/20 08:52 Sucralfate (Carafate) 1 gm FOUR TIMES A DAY GT 03/11/20 09:00 06/09/20 08:59 03/17/20 08:51 Ro Pack M.D. Mar 17, 2020 09:05
--- NOTE | 2020-03-17 09:46 | NUR ---
NURSE NOTES: Per Dr. Mccauley transfuse 1 unit for low Hgb. Order noted, entered, carried out.
--- NOTE | 2020-03-17 09:49 | Pulmonology Progress Note ---
Subjective ROS Limited/Unobtainable: No Interval Events: s/p dialysis, 2L fluid removed; Low Hgb HEENT: Repors: no symptoms Respiratory: Reports: no symptoms Cardiovascular: Reports: no symptoms Gastrointestinal/Abdominal: Reports: diarrhea Allergies: Coded Allergies: No Known Allergies (Unverified , 10/10/17) All Systems: reviewed and negative except above Objective Last 24 Hour Vital Signs Date Time Temp Pulse Resp B/P (MAP) Pulse Ox O2 Delivery O2 Flow Rate FiO2 03/17/20 08:52 56 110/49 03/17/20 08:00 55 03/17/20 08:00 40 03/17/20 08:00 96.4 62 16 118/49 (72) 94 03/17/20 08:00 Mechanical Ventilator 03/17/20 05:22 61 15 40 03/17/20 04:00 97.0 57 15 97/57 (70) 96 03/17/20 04:00 40 03/17/20 04:00 54 03/17/20 04:00 Mechanical Ventilator 03/17/20 03:30 64 22 40 03/17/20 01:45 62 23 40 03/17/20 00:00 55 03/17/20 00:00 97.2 57 14 105/57 (73) 99 03/17/20 00:00 40 03/17/20 00:00 Mechanical Ventilator 03/16/20 23:49 59 19 40 03/16/20 21:15 61 21 40 03/16/20 20:31 64 121/59 03/16/20 20:00 97.3 64 17 121/59 (79) 97 03/16/20 20:00 40 03/16/20 20:00 Mechanical Ventilator 03/16/20 20:00 71 03/16/20 19:05 71 21 40 03/16/20 16:00 Mechanical Ventilator 03/16/20 16:00 97.9 60 14 103/53 (70) 97 03/16/20 16:00 40 03/16/20 16:00 60 03/16/20 14:42 70 24 40 03/16/20 12:00 63 03/16/20 12:00 40 03/16/20 12:00 97.9 60 18 114/56 (75) 100 03/16/20 12:00 Mechanical Ventilator 03/16/20 10:40 66 20 40 Intake and Output 03/16/20 03/17/20 19:00 07:00 Intake Total 640 ml 695 ml Output Total 2100 ml 5 ml Balance -1460 ml 690 ml Intake Free Water 60 ml 200 ml IV Total 160 ml 110 ml Tube Feeding 420 ml 385 ml Output Urine Total 100 ml 5 ml Hemodialysis UF 2000 ml General Appearance: no acute distress HEENT: atraumatic Respiratory: lungs clear Cardiovascular: normal rate, regular rhythm Extremities: other - edema bilateral Laboratory Tests 03/16/20 13:47: POC Whole Blood Glucose 86 03/16/20 18:23: POC Whole Blood Glucose [Pending] 03/16/20 23:45: POC Whole Blood Glucose 73L 03/17/20 03:30: White Blood Count 6.6, Red Blood Count 2.52L, Hemoglobin 7.5L, Hematocrit 22.2L, Mean Corpuscular Volume 88, Mean Corpuscular Hemoglobin 29.6, Mean Corpuscular Hemoglobin Concent 33.6, Red Cell Distribution Width 14.4, Platelet Count 100L, Mean Platelet Volume 9.7, Neutrophils (%) (Auto) , Lymphocytes (%) (Auto) , Monocytes (%) (Auto) , Eosinophils (%) (Auto) , Basophils (%) (Auto) , Hepatitis B Surface Antigen [Pending] 03/17/20 06:08: POC Whole Blood Glucose 83 03/17/20 07:50: White Blood Count 6.8, Red Blood Count 2.41L, Hemoglobin 7.2L, Hematocrit 21.1L, Mean Corpuscular Volume 87, Mean Corpuscular Hemoglobin 30.0, Mean Corpuscular Hemoglobin Concent 34.4, Red Cell Distribution Width 14.2, Platelet Count 90L, Mean Platelet Volume 10.5H, Neutrophils (%) (Auto) , Lymphocytes (%) (Auto) , Monocytes (%) (Auto) , Eosinophils (%) (Auto) , Basophils (%) (Auto) , Neutrophils % (Manual) [Pending], Lymphocytes % (Manual) [Pending], Platelet Estimate [Pending], Platelet Morphology [Pending] Current Medications Medications (Trade) Dose Ordered Sig/Penny Route PRN Reason Start Time Stop Time Status Last Admin Dose Admin Acetaminophen (Tylenol) 650 mg Q6H PRN GT Mild Pain (Pain Scale 1-3) 03/02/20 22:30 2/17/21 22:29 03/17/20 06:06 Acetaminophen (Tylenol) 650 mg Q6H PRN GT Temp >100.5 03/03/20 03:00 04/01/20 22:29 Aspirin (ASA) 81 mg DAILY GT 03/07/20 09:00 04/21/20 08:59 03/16/20 08:05 Carvedilol (Coreg) 6.25 mg EVERY 12 HOURS GT 03/14/20 21:00 04/13/20 20:59 03/16/20 20:31 Ceftazidime/ Avibactam 0.94 gm/ Dextrose 110 ml @ 110 mls/hr Q12HR IV 03/06/20 13:00 03/20/20 23:59 03/17/20 08:50 Chlorhexidine Gluconate (Ling-Hex 2%) 1 applic DAILY@2000 TOPIC 03/03/20 20:00 06/01/20 19:59 03/16/20 20:30 Daptomycin 500 mg/ Sodium Chloride 50 ml @ 100 mls/hr Q48H IV 03/10/20 13:00 03/21/20 23:59 03/16/20 13:08 Dextrose (Dextrose 50%) 25 ml Q30M PRN IV Hypoglycemia 03/15/20 07:30 06/13/20 07:29 Dextrose (Dextrose 50%) 50 ml Q30M PRN IV Hypoglycemia 03/15/20 07:30 06/13/20 07:29 Hydralazine HCl (Apresoline) 25 mg Q6H PRN GT For High Blood Pressure 03/02/20 22:00 05/31/20 21:59 Loperamide HCl (Imodium) 2 mg Q6H PRN GT Diarrhea 03/06/20 12:45 04/05/20 12:44 03/06/20 13:01 Metoclopramide HCl (Reglan) 5 mg Q8HR IVP 03/04/20 11:45 04/03/20 11:44 03/17/20 05:21 Midodrine (Pro-Amatine) 10 mg THREE TIMES A DAY GT 03/04/20 13:00 06/01/20 12:59 03/17/20 08:51 Pantoprazole (Protonix) 40 mg EVERY 12 HOURS IVP 03/04/20 21:00 04/02/20 20:59 03/17/20 08:52 Polyethylene Glycol (Miralax) 17 gm BEDTIME PRN GT Constipation 03/02/20 22:00 04/01/20 21:59 Sevelamer Carbonate (Renvela) 1,600 mg Q6HR NG 03/11/20 12:00 06/08/20 11:59 03/17/20 05:21 Sodium Hypochlorite (Dakin's Quarter Strength) 1 applic DAILY TOPIC 03/04/20 09:00 04/03/20 08:59 03/17/20 08:52 Sucralfate (Carafate) 1 gm FOUR TIMES A DAY GT 03/11/20 09:00 06/09/20 08:59 03/17/20 08:51 Assessment/Plan Assessment/Plan 1. Chronic respiratory failure. - CT chest/abd/pelv: improving pleural effusion 2. Mechanical ventilation. - current setting at AC 14, Vt 500, FiO2 40%, PEEP 5 saturating at 96% - continue current setting - suction secretions as needed 3. Chronic tracheostomy. 4. Chronic G-tube. 5. Anemia. - s/p transfusion - stool OB positive - off anticoags - will be transfused again 6. Renal failure. 7. Leukocytosis and sepsis. - WBC now resolved 8. Sepsis UTI 9. Gram positive cocci bacteremia - f/u BCx negative for growth 10. COVID-19 negative 11. Diarrhea - C. diff neg 12. Hypoglycemia - resolved 13. Bradycardia - no urgent indication for pacemaker per cardio 14. Gastric ulcer - on PPI - GI following 15. Pleural effusion - small; insufficient volume for safe thoracentesis 16. thoracic aortic aneurysm - noted on CT imaging - pt needs emergent transfer out to [facility] for CT surgery evaluation, primary MD aware - Pt might not be a candidate for TAA repair We will follow carefully. ID and Hematology following. The care for this patient was discussed with my supervising physician Time spent for this case was approximately 31 minutes Cruz Wilson Mar 17, 2020 09:49
--- NOTE | 2020-03-17 11:04 | NUR ---
NURSE NOTES: 1 Unit PRBC transfusion initiated, no s/s transfusion reaction noted. Will continue to monitor.
--- NOTE | 2020-03-17 11:28 | NUR ---
CASE MANAGEMENT:REVIEW 03/17/20 SI: SEPSIS. AC/CHR RENAL FAILURE. TRACH.VENT.GT THORACIC/ABDOMINAL AORTIC DISSECTION 96.4 55 16 118/49 94% ON VENT SUPPORT W/40% FIO2 H/H-7.04/05.1 PLT-90 IS: TRANSFUSE 1 UNIT PRBC'S IV DAPTOMYCIN Q48HRS IV CEFTAZIDIME Q12 IVF@50/HR ASA GT QD IV PROTONIX Q12 IV REGLAN Q8HR COREG GT Q12 CARAFATE GT QID : STEP DOWN UNIT DCP: FROM [facility]
--- NOTE | 2020-03-17 11:30 | Nephrology Progress Note ---
Assessment/Plan Problem List: (1) Renal failure (ARF), acute on chronic (2) Anemia (3) Hyponatremia (4) Respiratory failure Assessment (1) JAVIER (acute kidney injury) (2) Renal failure (ARF), acute on chronic (3) Feeding by G-tube (4) Tracheostomy in place (5) Electrolyte imbalance, hyponatremia (6) Anemia, severe (7) Respiratory failure, acute and chronic (8) history of elevated lipase, pancreatitis (9) Elevated troponin I (10) Sepsis Plan March 17: No CHEM panel done today. CBC reviewed. Hemoglobin is lowering. Dialyzed yesterday. Will check lab tomorrow. Continue per consultants. March 16: Labs reviewed. Due for dialysis today. Hemoglobin 10.2 today. Continue to monitor renal parameters. March 15: Labs reviewed. Dialyzed March 13. Due for dialysis March 16. Hemoglobin lower. 1 unit of packed RBCs ordered. Per orders. March 14: No labs drawn today. Dialyzed yesterday. Full code. Will check lab tomorrow. Dialysis as needed. March 13: Labs reviewed. Due for dialysis today. Patient remains full code. Continue per current management. March 12: Labs reviewed. Dialyzed yesterday. Due for dialysis tomorrow. Discussed with RN. Patient full code. Continue per current management. March 11: Labs reviewed. Dialyzed this morning. Phosphorus binders dose adjusted. Continue per consultants. Continue to monitor renal parameters. CT: Extensive thoracoabdominal aortic dissection March 10: Labs reviewed. Will order dialysis tomorrow. Phosphorus binders added. Continue per consultants. March 09: No chemistry panel done today. Patient dialyzed yesterday. On dextrose 10% for hypoglycemia. We will check labs tomorrow. Dialysis as needed. March 08: Labs reviewed. Will order dialysis today. Blood sugar low. D10 50 cc an hour started. Continue as is. March 07: Labs reviewed. Dialyzed March 05 and March 06. Continue to monitor renal parameters and hemoglobin. Abnormal electrolytes addressed. IV fluids stopped. Per orders. March 06: Labs reviewed. Dialyzed yesterday. Will reorder dialysis for today. Continue to monitor renal parameters. Hemoglobin 8.4. Patient full code. March 05: Labs reviewed. Patient did not receive dialysis until this morning. Proceed with dialysis. Continue to monitor renal parameters and hemoglobin and hematocrit. March 04: Labs reviewed. Hemoglobin lower. Patient actively bleeding. Was not dialyzed yesterday. Due for GI endoscopy. Continue fluid challenge. Transfusion as needed. Dialysis today. March 03: Labs reviewed. Dialysis ordered. Blood pressure medication all discontinued due to hypotensive state. Albumin bolus given. Continue to monitor renal parameters. Medication list reviewed. Midodrin for low blood pressure ordered Subjective ROS Limited/Unobtainable: Yes Objective Objective Last 24 Hour Vital Signs Date Time Temp Pulse Resp B/P (MAP) Pulse Ox O2 Delivery O2 Flow Rate FiO2 03/17/20 08:52 56 110/49 03/17/20 08:00 55 03/17/20 08:00 40 03/17/20 08:00 96.4 62 16 118/49 (72) 94 03/17/20 08:00 Mechanical Ventilator 03/17/20 05:22 61 15 40 03/17/20 04:00 97.0 57 15 97/57 (70) 96 03/17/20 04:00 40 03/17/20 04:00 54 03/17/20 04:00 Mechanical Ventilator 03/17/20 03:30 64 22 40 03/17/20 01:45 62 23 40 03/17/20 00:00 55 03/17/20 00:00 97.2 57 14 105/57 (73) 99 03/17/20 00:00 40 03/17/20 00:00 Mechanical Ventilator 03/16/20 23:49 59 19 40 03/16/20 21:15 61 21 40 03/16/20 20:31 64 121/59 03/16/20 20:00 97.3 64 17 121/59 (79) 97 03/16/20 20:00 40 03/16/20 20:00 Mechanical Ventilator 03/16/20 20:00 71 03/16/20 19:05 71 21 40 03/16/20 16:00 Mechanical Ventilator 03/16/20 16:00 97.9 60 14 103/53 (70) 97 03/16/20 16:00 40 03/16/20 16:00 60 03/16/20 14:42 70 24 40 03/16/20 12:00 63 03/16/20 12:00 40 03/16/20 12:00 97.9 60 18 114/56 (75) 100 03/16/20 12:00 Mechanical Ventilator Intake and Output 03/16/20 03/17/20 19:00 07:00 Intake Total 640 ml 695 ml Output Total 2100 ml 5 ml Balance -1460 ml 690 ml Intake Free Water 60 ml 200 ml IV Total 160 ml 110 ml Tube Feeding 420 ml 385 ml Output Urine Total 100 ml 5 ml Hemodialysis UF 2000 ml Current Medications Medications (Trade) Dose Ordered Sig/Penny Route PRN Reason Start Time Stop Time Status Last Admin Dose Admin Acetaminophen (Tylenol) 650 mg Q6H PRN GT Mild Pain (Pain Scale 1-3) 03/02/20 22:30 04/01/20 22:29 03/17/20 06:06 Acetaminophen (Tylenol) 650 mg Q6H PRN GT Temp >100.5 03/03/20 03:00 04/01/20 22:29 Aspirin (ASA) 81 mg DAILY GT 03/07/20 09:00 04/21/20 08:59 03/16/20 08:05 Carvedilol (Coreg) 6.25 mg EVERY 12 HOURS GT 03/14/20 21:00 04/13/20 20:59 03/16/20 20:31 Ceftazidime/ Avibactam 0.94 gm/ Dextrose 110 ml @ 110 mls/hr Q12HR IV 03/06/20 13:00 03/20/20 23:59 03/17/20 08:50 Chlorhexidine Gluconate (Ling-Hex 2%) 1 applic DAILY@2000 TOPIC 03/03/20 20:00 06/01/20 19:59 03/16/20 20:30 Daptomycin 500 mg/ Sodium Chloride 50 ml @ 100 mls/hr Q48H IV 03/10/20 13:00 03/21/20 23:59 03/16/20 13:08 Dextrose (Dextrose 50%) 25 ml Q30M PRN IV Hypoglycemia 03/15/20 07:30 06/13/20 07:29 Dextrose (Dextrose 50%) 50 ml Q30M PRN IV Hypoglycemia 03/15/20 07:30 06/13/20 07:29 Hydralazine HCl (Apresoline) 25 mg Q6H PRN GT For High Blood Pressure 03/02/20 22:00 05/31/20 21:59 Loperamide HCl (Imodium) 2 mg Q6H PRN GT Diarrhea 03/06/20 12:45 04/05/20 12:44 03/06/20 13:01 Metoclopramide HCl (Reglan) 5 mg Q8HR IVP 03/04/20 11:45 04/03/20 11:44 03/17/20 05:21 Midodrine (Pro-Amatine) 10 mg THREE TIMES A DAY GT 03/04/20 13:00 06/01/20 12:59 03/17/20 08:51 Pantoprazole (Protonix) 40 mg EVERY 12 HOURS IVP 03/04/20 21:00 04/02/20 20:59 03/17/20 08:52 Polyethylene Glycol (Miralax) 17 gm BEDTIME PRN GT Constipation 03/02/20 22:00 04/01/20 21:59 Sevelamer Carbonate (Renvela) 1,600 mg Q6HR NG 03/11/20 12:00 06/08/20 11:59 03/17/20 05:21 Sodium Hypochlorite (Dakin's Quarter Strength) 1 applic DAILY TOPIC 03/04/20 09:00 04/03/20 08:59 03/17/20 08:52 Sucralfate (Carafate) 1 gm FOUR TIMES A DAY GT 03/11/20 09:00 06/09/20 08:59 03/17/20 08:51 Laboratory Tests 03/16/20 13:47: POC Whole Blood Glucose 86 03/16/20 18:23: POC Whole Blood Glucose [Pending] 03/16/20 23:45: POC Whole Blood Glucose 73L 03/17/20 03:30: White Blood Count 6.6, Red Blood Count 2.52L, Hemoglobin 7.5L, Hematocrit 22.2L, Mean Corpuscular Volume 88, Mean Corpuscular Hemoglobin 29.6, Mean Corpuscular Hemoglobin Concent 33.6, Red Cell Distribution Width 14.4, Platelet Count 100L, Mean Platelet Volume 9.7, Neutrophils (%) (Auto) , Lymphocytes (%) (Auto) , Monocytes (%) (Auto) , Eosinophils (%) (Auto) , Basophils (%) (Auto) , Hepatitis B Surface Antigen [Pending] 03/17/20 06:08: POC Whole Blood Glucose 83 03/17/20 07:50: White Blood Count 6.8, Red Blood Count 2.41L, Hemoglobin 7.2L, Hematocrit 21.1L, Mean Corpuscular Volume 87, Mean Corpuscular Hemoglobin 30.0, Mean Corpuscular Hemoglobin Concent 34.4, Red Cell Distribution Width 14.2, Platelet Count 90L, Mean Platelet Volume 10.5H, Neutrophils (%) (Auto) , Lymphocytes (%) (Auto) , Monocytes (%) (Auto) , Eosinophils (%) (Auto) , Basophils (%) (Auto) , Differential Total Cells Counted 100, Neutrophils % (Manual) 79H, Lymphocytes % (Manual) 15L, Monocytes % (Manual) 5, Eosinophils % (Manual) 1, Basophils % (Ma nual) 0, Band Neutrophils 0, Platelet Estimate DecreasedL, Platelet Morphology Normal, Hypochromasia 1+, Anisocytosis 1+ Height (Feet): 5 Height (Inches): 3.00 Weight (Pounds): 128 General Appearance: no apparent distress EENT: other - Trach on vent Cardiovascular: normal rate Respiratory/Chest: decreased breath sounds Abdomen: distended Johnny Houston MD Mar 17, 2020 11:30
[2020-03-17 12:00] VITALS: BP 111/56
--- NOTE | 2020-03-17 13:16 | NUR ---
INSURANCE CLINCALS/REVIEW FAXED TO [facility] T: [phone] F: [phone]
--- NOTE | 2020-03-17 14:00 | NUR ---
NURSE NOTES: 1 unit of PRBC given, no s/s transfusion reaction noted. Will continue to monitor.
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
[2020-03-17 16:00] VITALS: BP 136/67
[2020-03-17] MEDS: Renvela 800mg Pkt GT SCH (17:16)
--- NOTE | 2020-03-17 19:24 | NUR ---
Assumed care of patient from ERASMO Lindsay.
--- NOTE | 2020-03-17 19:27 | NUR ---
NURSE HAND-OFF REPORT: Important Events on Shift: 1PRBC given, paracentesis scheduled tomorrow 2/3 Patient Status: stable/guarded Diet: Nephro GT Pending Orders: NA Pending Results/Labs:NA Pending notification:NA Latest Vital Signs: Temperature 97.7 , Pulse 72 , B/P 136 /67 , Respiratory Rate 26 , O2 SAT 99 , Mechanical Ventilator, O2 Flow Rate . Vital Sign Comment: stable EKG Rhythm: Sinus Rhythm Rhythm change?: N MD Notified?: N -Dr Екатерина HATFIELD Response: No New Orders Received Latest Chavarria Fall Score: 50 Fall Risk: High Risk Safety Measures: Call light Within Reach, Bed Alarm Zone 2, Side Rails Side Rails x2, Bed position Low and Locked. Fall Precautions: Yellow Socks Report given to ERASMO Vasquez.
--- NOTE | 2020-03-17 19:40 | General Progress Note ---
Subjective Constitutional: Reports: no symptoms HEENT: Reports: no symptoms Cardiovascular: Reports: no symptoms Respiratory: Reports: no symptoms Gastrointestinal/Abdominal: Reports: no symptoms Genitourinary: Reports: no symptoms Neurologic/Psychiatric: Reports: anxiety, depressed Endocrine: Reports: no symptoms Hematologic/Lymphatic: Reports: no symptoms Allergies: Coded Allergies: No Known Allergies (Unverified , 10/10/17) Objective Last 24 Hour Vital Signs Date Time Temp Pulse Resp B/P (MAP) Pulse Ox O2 Delivery O2 Flow Rate FiO2 03/17/20 16:00 97.7 72 26 136/67 (90) 99 03/17/20 16:00 Mechanical Ventilator 03/17/20 16:00 40 03/17/20 15:48 66 03/17/20 15:10 70 25 40 03/17/20 13:25 60 20 40 03/17/20 12:00 40 03/17/20 12:00 Mechanical Ventilator 03/17/20 12:00 97.2 60 16 111/56 (74) 98 03/17/20 11:51 66 03/17/20 11:10 62 19 40 03/17/20 08:52 56 110/49 03/17/20 08:00 55 03/17/20 08:00 40 03/17/20 08:00 96.4 62 16 118/49 (72) 94 03/17/20 08:00 Mechanical Ventilator 03/17/20 07:10 60 25 40 03/17/20 05:22 61 15 40 03/17/20 04:00 97.0 57 15 97/57 (70) 96 03/17/20 04:00 40 03/17/20 04:00 54 03/17/20 04:00 Mechanical Ventilator 03/17/20 03:30 64 22 40 03/17/20 01:45 62 23 40 03/17/20 00:00 55 03/17/20 00:00 97.2 57 14 105/57 (73) 99 03/17/20 00:00 40 03/17/20 00:00 Mechanical Ventilator 03/16/20 23:49 59 19 40 03/16/20 21:15 61 21 40 03/16/20 20:31 64 121/59 03/16/20 20:00 97.3 64 17 121/59 (79) 97 03/16/20 20:00 40 03/16/20 20:00 Mechanical Ventilator 03/16/20 20:00 71 Intake and Output 03/16/20 03/17/20 19:00 07:00 Intake Total 640 ml 730 ml Output Total 2100 ml 5 ml Balance -1460 ml 725 ml Intake Free Water 60 ml 200 ml IV Total 160 ml 110 ml Tube Feeding 420 ml 420 ml Output Urine Total 100 ml 5 ml Hemodialysis UF 2000 ml Laboratory Tests 03/16/20 23:45: POC Whole Blood Glucose 73L 03/17/20 03:30: White Blood Count 6.6, Red Blood Count 2.52L, Hemoglobin 7.5L, Hematocrit 22.2L, Mean Corpuscular Volume 88, Mean Corpuscular Hemoglobin 29.6, Mean Corpuscular Hemoglobin Concent 33.6, Red Cell Distribution Width 14.4, Platelet Count 100L, Mean Platelet Volume 9.7, Neutrophils (%) (Auto) , Lymphocytes (%) (Auto) , Monocytes (%) (Auto) , Eosinophils (%) (Auto) , Basophils (%) (Auto) , Hepatitis B Surface Antigen [Pending] 03/17/20 06:08: POC Whole Blood Glucose 83 03/17/20 07:50: White Blood Count 6.8, Red Blood Count 2.41L, Hemoglobin 7.2L, Hematocrit 21.1L, Mean Corpuscular Volume 87, Mean Corpuscular Hemoglobin 30.0, Mean Corpuscular Hemoglobin Concent 34.4, Red Cell Distribution Width 14.2, Platelet Count 90L, Mean Platelet Volume 10.5H, Neutrophils (%) (Auto) , Lymphocytes (%) (Auto) , Monocytes (%) (Auto) , Eosinophils (%) (Auto) , Basophils (%) (Auto) , Differential Total Cells Counted 100, Neutrophils % (Manual) 79H, Lymphocytes % (Manual) 15L, Monocytes % (Manual) 5, Eosinophils % (Manual) 1, Basophils % (Manual) 0, Band Neutrophils 0, Platelet Estimate DecreasedL, Platelet Morphology Normal, Hypochromasia 1+, Anisocytosis 1+ 03/17/20 11:32: POC Whole Blood Glucose 89 03/17/20 17:18: POC Whole Blood Glucose 93 Height (Feet): 5 Height (Inches): 3.00 Weight (Pounds): 128 General Appearance: WD/WN, alert, lethargic EENT: normal ENT inspection Neck: supple Cardiovascular: normal rate, regular rhythm, no gallop/murmur, no JVD Respiratory/Chest: decreased breath sounds, rhonchi - bilaterally Abdomen: normal bowel sounds, non tender, soft, no organomegaly, no mass Extremities: non-tender Edema: 2+ Leg (L), 2+ Leg (R) Neurologic: alert, motor weakness, depressed affect Assessment/Plan Status Narrative Patient is awake alert afebrile depressed does not respond to any question but on the same time his continue to conserve eye contact and normal attention span laboratory tests are stable episode for stains hospital now and not being discharged with a search for cardiovascular asked surgery unit 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 Lucas Vera MD, MD Mar 17, 2020 19:40
[2020-03-17 20:00] VITALS: BP 134/61
--- NOTE | 2020-03-17 20:00 | NUR ---
Lab called to see if they were to come and draw CBC now post transfusion or in the am. housekeeping lead, Zelda, said for them draw in am not now. Lab will be by in am to redraw.
[2020-03-17] MEDS: Dyna-Hex 2% Top Sol 2oz TOPIC SCH (20:07)
--- NOTE | 2020-03-17 20:47 | NUR ---
Tylenol administered due to pain and fever of 100.6. Texted provider at 2029 to notify that patient is crying through vent in pain and setting it off in Peak pressures and volumes. REEL WINDER called to bedside at 2039 due to desaturation into the70's while continuing to fight the vent and crying. Placed patient on 100% FiO2 prior to REEL WINDER arrival. Patient sats between 87-94%. Tried to calm patient down. Re Messaged MD to notify of changes and that patient is on 100% FiO2. Awaiting return message/call on pain meds. Will continue to monitor.
[2020-03-18] VITALS: BP 121/64
[2020-03-18] MEDS: Sucralfate 1gm tab GT SCH ×4 (00:04→17:32)
[2020-03-18] MEDS: Renvela 800mg Pkt GT SCH ×4 (00:04→17:32)
--- NOTE | 2020-03-18 02:07 | Cardiology Progress Note ---
Subjective DATE OF SERVICE: Mar 17, 2020 Heart rates remain in stable range; carvedilol dose advanced slightly over past few days, in view of aortic dissection. BP parameters stable. CT scan now reveals extensive thoracoabd aortic dissection. Dialysis per renal; last session was 03/13/20 Objective Last 24 Hour Vital Signs Date Time Temp Pulse Resp B/P (MAP) Pulse Ox O2 Delivery O2 Flow Rate FiO2 03/18/20 00:00 Mechanical Ventilator 03/18/20 00:00 100.4 73 22 121/64 (83) 98 03/17/20 23:10 75 20 40 03/17/20 21:45 77 134/61 03/17/20 20:55 100 03/17/20 20:54 40 03/17/20 20:00 100.6 77 28 134/61 (85) 97 03/17/20 20:00 Mechanical Ventilator 03/17/20 19:43 81 03/17/20 19:09 74 31 40 03/17/20 16:00 97.7 72 26 136/67 (90) 99 03/17/20 16:00 Mechanical Ventilator 03/17/20 16:00 40 03/17/20 15:48 66 03/17/20 15:10 70 25 40 03/17/20 13:25 60 20 40 03/17/20 12:00 40 03/17/20 12:00 Mechanical Ventilator 03/17/20 12:00 97.2 60 16 111/56 (74) 98 03/17/20 11:51 66 03/17/20 11:10 62 19 40 03/17/20 08:52 56 110/49 03/17/20 08:00 55 03/17/20 08:00 40 03/17/20 08:00 96.4 62 16 118/49 (72) 94 03/17/20 08:00 Mechanical Ventilator 03/17/20 07:10 60 25 40 03/17/20 05:22 61 15 40 03/17/20 04:00 97.0 57 15 97/57 (70) 96 03/17/20 04:00 40 03/17/20 04:00 54 03/17/20 04:00 Mechanical Ventilator 03/17/20 03:30 64 22 40 HEENT: Thin Trach secretions RHYTHM: NSR, SB LUNGS: bilateral rhonchi - few, trach site clean CARDIAC: normal rate, regular rhythm, normal S1 and S2 ABDOMEN: normal bowel sounds, non tender, soft, G-Tube intact EXTREMITIES: normal range of motion, non-tender, normal inspection Laboratory Tests Test 03/17/20 03:30 03/17/20 06:08 03/17/20 07:50 03/17/20 11:32 White Blood Count 6.6 K/UL (4.8-10.8) 6.8 K/UL (4.8-10.8) Red Blood Count 2.52 M/UL (4.20-5.40) L 2.41 M/UL (4.20-5.40) L Hemoglobin 7.5 G/DL (12.0-16.0) L 7.2 G/DL (12.0-16.0) L Hematocrit 22.2 % (37.0-47.0) L 21.1 % (37.0-47.0) L Mean Corpuscular Volume 88 FL (80-99) 87 FL (80-99) Mean Corpuscular Hemoglobin 29.6 PG (27.0-31.0) 30.0 PG (27.0-31.0) Mean Corpuscular Hemoglobin Concent 33.6 G/DL (32.0-36.0) 34.4 G/DL (32.0-36.0) Red Cell Distribution Width 14.4 % (11.6-14.8) 14.2 % (11.6-14.8) Platelet Count 100 K/UL (150-450) L 90 K/UL (150-450) L Mean Platelet Volume 9.7 FL (6.5-10.1) 10.5 FL (6.5-10.1) H Neutrophils (%) (Auto) % (45.0-75.0) % (45.0-75.0) Lymphocytes (%) (Auto) % (20.0-45.0) % (20.0-45.0) Monocytes (%) (Auto) % (1.0-10.0) % (1.0-10.0) Eosinophils (%) (Auto) % (0.0-3.0) % (0.0-3.0) Basophils (%) (Auto) % (0.0-2.0) % (0.0-2.0) Hepatitis B Surface Antigen Pending POC Whole Blood Glucose 83 MG/DL (74-106) 89 MG/DL (74-106) Differential Total Cells Counted 100 Neutrophils % (Manual) 79 % (45-75) H Lymphocytes % (Manual) 15 % (20-45) L Monocytes % (Manual) 5 % (1-10) Eosinophils % (Manual) 1 % (0-3) Basophils % (Manual) 0 % (0-2) Band Neutrophils 0 % (0-8) Platelet Estimate Decreased L Platelet Morphology Normal Hypochromasia 1+ Anisocytosis 1+ Test 03/17/20 17:18 POC Whole Blood Glucose 93 MG/DL (74-106) Assessment/Plan Assessment/Plan Aortic dissections Sepsis with recovered shock Sinus node disease with bradycardia Hx pacemaker explant Ischemic cardiomyopathy - hx CABG? Paroxysmal Atrial Fib Respiratory failure with trach Hx thoracic aortic aneurysm repair ESRD Anemia - worse today Will continue current dose of beta flori (with hold parameter) and advance as tolerated by underlying sinus node disease panel monitor Vent support Antimicrobials DVT prophyl No urgent indication for pacemaker at present. HD/UF per renal Needs higher level of care ultimately for repair of aortic dissection, although may not be a surgical candidate Deni Willams MD Mar 18, 2020 02:07
--- NOTE | 2020-03-18 03:10 | NUR ---
Patient relaxed and sleeping at this time. FiO2 has been able to be weaned back to 40% without issue. Sats remain in the 90's. Patient remains febrile at 100.4. Will continue to monitor.
[2020-03-18 04:00] VITALS: BP 113/60
[2020-03-18 05:10] LABS: HEMATOCRIT 20.5 % (37.0-47.0); MEAN CORPUSCULAR VOLUME 87 FL (80-99); PLATELET COUNT 80 K/UL (150-450); RED BLOOD COUNT 2.37 M/UL (4.20-5.40); RED CELL DISTRIBUTION WIDTH 14.4 % (11.6-14.8); WHITE BLOOD COUNT 5.3 K/UL (4.8-10.8)
[2020-03-18 05:30] LABS: HEMOGLOBIN 6.8 G/DL (12.0-16.0)
--- NOTE | 2020-03-18 05:32 | NUR ---
Critical lab result called to me at [address] Dong and left unit # [id number] for him to call back to report this value to him.
[2020-03-18 05:37] LABS: ALBUMIN 1.3 G/DL (3.4-5.0); ALBUMIN/GLOBULIN RATIO 0.4 (1.0-2.7); BILIRUBIN,TOTAL 0.4 MG/DL (0.2-1.0); CREATININE 2.6 MG/DL (0.55-1.30); PHOSPHORUS 3.3 MG/DL (2.5-4.9); POTASSIUM 3.6 MMOL/L (3.5-5.1)
[2020-03-18 05:38] LABS: CALCIUM 5.6 MG/DL (8.5-10.1)
[2020-03-18 05:52] LABS: INR 1.4 (0.9-1.1)
[2020-03-18] MEDS: Metoclopramide 10mg/2ml Inj IVP SCH ×3 (06:14→21:04)
[2020-03-18] MEDS: Midodrine 10mg tab GT SCH ×3 (06:14→22:00)
--- NOTE | 2020-03-18 06:49 | NUR ---
CASE MANAGEMENT:REVIEW 03/18/20 SI: SEPSIS. AC/CHR RENAL FAILURE. TRACH.VENT.GT THORACIC/ABDOMINAL AORTIC DISSECTION 100.4 73 22 121/64 97% ON VENT SUPPORT W/35% FIO2 H/H-6.8/20.5 PLT-80 NA-129 BUN+90 CR+2.6 GLUCOSE-72 CA-5.6 PT+15.1 INR-1.4 IS: TRANSFUSE PRBC'S IV DAPTOMYCIN Q48HRS IV CEFTAZIDIME Q12 IVF@50/HR ASA GT QD IV PROTONIX Q12 IV REGLAN Q8HR COREG GT Q12 CARAFATE GT QID MIDODRINE GT Q8HR : STEP DOWN UNIT DCP: FROM [facility]: MONITOR H/H AND PLT ~ S/P 1 UNIT FFP AND 11 UNITS PRBC'S
--- NOTE | 2020-03-18 06:49 | NUR ---
Blood glucose was 72 this am. I administered some orange juice with sugar packets in it. Patient asymptomatic. Will report to Day Shift RN to reasess BG around 0730 to determine if juice was successful at bringing this value up.
--- NOTE | 2020-03-18 06:49 | Hematology/Onc Progress Note ---
Assessment/Plan Assessment/Plan # Leukocytosis, now with likely bacteremia, as per ID care --> Cxr: : Large left abiola consolidation/effusion --> wbc 30-->40-->27->30->29-->35->32-->28-->21->10.2-->6.6 --> ABX angelo/vanc-->tobra/edson/vanc-->dapto/ceftazadine --> smear reviewed --> ID recs are noted # Anemia of chronic disease due to underlying chronic medical issues, multifactorial --> Anemia workup has been reviewed, cw acd --> No evidence of hemolysis is noted, peripheral smear has been reviewed. --> Hgb goal >7. Transfuse prn. --> Epogen required in prior --> Medications have been reviewed --> low threshold for gi evaluation in case has occult + --> hgb 1.9-->5-->7.1-->8.8-->8.1->7.5-> 8.2-->6.8 --> 1 unit prbc1/17, 2 units 01/15, 03/02, 2/3 --> gi eval as needed # Elevated tumor markers, cea and ca 19.9 --> reviewed prior 01/27/20 cat scan a/p --> no masses noted, hold off further extensive w/u # Thrombocytopenia likely reactive v medication indcued --> plt 200-->129->91-->86->100 --> r/o dic --> anticoag as needed # Coagulopathy with inr 1.5 --> consider vit k/ffp as needed preprocedure --> labs noted # Aortic dissection as seen on Ct ==> when stable, consider transfer hloc # JAVIER initially >2 --> on ivfs --> per renal # Elevated d-dimer, likely infection related --> venous duplex prior neg --> in prior neg # Dysphagia s/p peg --> as per gi # Thoracic aortic dissection --> s/p repair early 2017 # Chronic Resp failure -> s/p trach/vent # Psychiatric history on ativan/haldol # [place] resident # Dvt ppx --> scds The timing of this note does not necessarily reflect the time of the patient was seen. Greatly appreciate consultation. Subjective Constitutional: Denies: no symptoms, chills, fever, malaise, weakness, other Cardiovascular: Denies: no symptoms, chest pain, edema, irregular heart rate, lightheadedness, palpitations, syncope, other Respiratory: Denies: no symptoms, cough, shortness of breath, SOB with excertion, SOB at rest, sputum, wheezing, other Gastrointestinal/Abdominal: Denies: no symptoms, abdomen distended, abdominal pain, black stools, tarry stools, blood in stool, constipated, diarrhea, difficulty swallowing, nausea, poor appetite, poor fluid intake, rectal bleeding, vomiting, other Genitourinary: Denies: no symptoms, burning, discharge, frequency, flank pain, hematuria, incontinence, pain, urgency, other Neurologic/Psychiatric: Denies: no symptoms, anxiety, depressed, emotional problems, headache, numbness, paresthesia, pre-existing deficit, seizure, tingling, tremors, weakness, other Endocrine: Denies: no symptoms, excessive sweating, flushing, intolerance to cold, intolerance to heat, increased hunger, increased thirst, increased urine, unexplained weight gain, unexplained weight loss, other Allergies: Coded Allergies: No Known Allergies (Unverified , 10/10/17) Subjective 03/04 for 1 unit transfusion this am as hgb remains low, wbc better 03/05 egd was done did show large nonbleeding gastric ulcer, high tumor markers 03/06 nv, with davis overnight, bp remains stable, with occult + stool, dw Rn 03/09 nv, remains stable, on vanc/tobra/edson, meds reviewed, no bleeding 03/10 nv, on vent, no bleeding, receiving abx, no night sweats 03/11 nv, dw surgeon and pcp, with aortic dissection to transfer [facility] when stable 03/12 nv, labs reviewed, wbc 21, hgb 7.5, otherwise is comfortable 03/13 nv, labs noted, no bleeding, wbc 13, hgb improved, meds reviewed 03/15 nv, meds reviewed, labs noted, no bleeding, on vent / nv/tv, peg, meds noted, hgb remains stable, improved to 10 2/2 s/p egd, with gastric ulceration noted, hgb stable 2/3 labs noted, hgb 6.8, to get 1 unit prbc, meds reviewed Objective Objective Current Medications Medications (Trade) Dose Ordered Sig/Penny Route PRN Reason Start Time Stop Time Status Last Admin Dose Admin Acetaminophen (Tylenol) 650 mg Q6H PRN GT Mild Pain (Pain Scale 1-3) 03/02/20 22:30 04/01/20 22:29 03/17/20 20:09 Acetaminophen (Tylenol) 650 mg Q6H PRN GT Temp >100.5 03/03/20 03:00 04/01/20 22:29 Aspirin (ASA) 81 mg DAILY GT 03/07/20 09:00 04/21/20 08:59 03/16/20 08:05 Carvedilol (Coreg) 6.25 mg EVERY 12 HOURS GT 03/14/20 21:00 04/13/20 20:59 03/17/20 21:45 Ceftazidime/ Avibactam 0.94 gm/ Dextrose 110 ml @ 110 mls/hr Q12HR IV 03/06/20 13:00 03/20/20 23:59 03/17/20 08:50 Chlorhexidine Gluconate (Ling-Hex 2%) 1 applic DAILY@2000 TOPIC 03/03/20 20:00 06/01/20 19:59 03/17/20 20:07 Daptomycin 500 mg/ Sodium Chloride 50 ml @ 100 mls/hr Q48H IV 03/10/20 13:00 03/21/20 23:59 03/16/20 13:08 Dextrose (Dextrose 50%) 25 ml Q30M PRN IV Hypoglycemia 03/15/20 07:30 06/13/20 07:29 Dextrose (Dextrose 50%) 50 ml Q30M PRN IV Hypoglycemia 03/15/20 07:30 06/13/20 07:29 Hydralazine HCl (Apresoline) 25 mg Q6H PRN GT For High Blood Pressure 03/02/20 22:00 05/31/20 21:59 Loperamide HCl (Imodium) 2 mg Q6H PRN GT Diarrhea 03/06/20 12:45 04/05/20 12:44 03/06/20 13:01 Metoclopramide HCl (Reglan) 5 mg Q8HR IVP 03/04/20 11:45 04/03/20 11:44 03/18/20 06:14 Midodrine (Pro-Amatine) 10 mg EVERY 8 HOURS GT 03/17/20 22:00 06/01/20 12:59 03/18/20 06:14 Pantoprazole (Protonix) 40 mg EVERY 12 HOURS IVP 03/04/20 21:00 04/02/20 20:59 03/17/20 21:44 Polyethylene Glycol (Miralax) 17 gm BEDTIME PRN GT Constipation 03/02/20 22:00 04/01/20 21:59 Sevelamer Carbonate (Renvela) 1,600 mg Q6HR GT 03/17/20 18:00 06/08/20 11:59 03/18/20 00:04 Sodium Hypochlorite (Dakin's Quarter Strength) 1 applic DAILY TOPIC 03/04/20 09:00 04/03/20 08:59 03/17/20 08:52 Sucralfate (Carafate) 1 gm EVERY 6 HOURS GT 03/17/20 18:00 06/09/20 08:59 03/18/20 06:14 Last 24 Hour Vital Signs Date Time Temp Pulse Resp B/P (MAP) Pulse Ox O2 Delivery O2 Flow Rate FiO2 03/18/20 04:00 62 03/18/20 04:00 98.6 76 21 113/60 (77) 97 03/18/20 04:00 Mechanical Ventilator 03/18/20 04:00 35 03/18/20 03:13 62 14 40 03/18/20 00:00 Mechanical Ventilator 03/18/20 00:00 74 03/18/20 00:00 70 03/18/20 00:00 100.4 73 22 121/64 (83) 98 03/17/20 23:10 75 20 40 03/17/20 21:45 77 134/61 03/17/20 20:55 100 03/17/20 20:54 40 03/17/20 20:00 100.6 77 28 134/61 (85) 97 03/17/20 20:00 Mechanical Ventilator 03/17/20 19:43 81 03/17/20 19:09 74 31 40 03/17/20 16:00 97.7 72 26 136/67 (90) 99 03/17/20 16:00 Mechanical Ventilator 03/17/20 16:00 40 03/17/20 15:48 66 03/17/20 15:10 70 25 40 03/17/20 13:25 60 20 40 03/17/20 12:00 40 03/17/20 12:00 Mechanical Ventilator 03/17/20 12:00 97.2 60 16 111/56 (74) 98 03/17/20 11:51 66 03/17/20 11:10 62 19 40 03/17/20 08:52 56 110/49 03/17/20 08:00 55 03/17/20 08:00 40 03/17/20 08:00 96.4 62 16 118/49 (72) 94 03/17/20 08:00 Mechanical Ventilator 03/17/20 07:10 60 25 40 03/17/20 05:22 61 15 40 03/17/20 04:00 97.0 57 15 97/57 (70) 96 03/17/20 04:00 40 03/17/20 04:00 54 03/17/20 04:00 Mechanical Ventilator 03/17/20 03:30 64 22 40 03/17/20 01:45 62 23 40 03/17/20 00:00 55 03/17/20 00:00 97.2 57 14 105/57 (73) 99 03/17/20 00:00 40 03/17/20 00:00 Mechanical Ventilator 03/16/20 23:49 59 19 40 03/16/20 21:15 61 21 40 03/16/20 20:31 64 121/59 03/16/20 20:00 97.3 64 17 121/59 (79) 97 03/16/20 20:00 40 03/16/20 20:00 Mechanical Ventilator 03/16/20 20:00 71 03/16/20 19:05 71 21 40 03/16/20 16:00 Mechanical Ventilator 03/16/20 16:00 97.9 60 14 103/53 (70) 97 03/16/20 16:00 40 03/16/20 16:00 60 03/16/20 14:42 70 24 40 03/16/20 12:00 63 03/16/20 12:00 40 03/16/20 12:00 97.9 60 18 114/56 (75) 100 03/16/20 12:00 Mechanical Ventilator 03/16/20 10:40 66 20 40 03/16/20 08:06 73 128/68 03/16/20 08:00 98.0 73 23 128/68 (88) 97 03/16/20 08:00 70 03/16/20 08:00 40 03/16/20 08:00 Mechanical Ventilator 03/16/20 07:05 68 22 40 Intake and Output 03/17/20 03/18/20 19:00 07:00 Intake Total 770 ml Output Total 50 ml 1050 ml Balance 720 ml -1050 ml Intake Free Water 60 ml IV Total 110 ml Tube Feeding 350 ml Blood Product 250 ml Output Urine Total 50 ml 1050 ml # Bowel Movements 2 Labs Test 03/15/20 11:55 03/15/20 16:57 03/15/20 23:27 03/16/20 03:23 POC Whole Blood Glucose 85 MG/DL (74-106) 86 MG/DL (74-106) 92 MG/DL (74-106) White Blood Count 8.7 K/UL (4.8-10.8) Red Blood Count 3.41 M/UL (4.20-5.40) Hemoglobin 10.2 G/DL (12.0-16.0) Hematocrit 30.2 % (37.0-47.0) Mean Corpuscular Volume 89 FL (80-99) Mean Corpuscular Hemoglobin 30.0 PG (27.0-31.0) Mean Corpuscular Hemoglobin Concent 33.8 G/DL (32.0-36.0) Red Cell Distribution Width 14.4 % (11.6-14.8) Platelet Count 86 K/UL (150-450) Mean Platelet Volume 9.7 FL (6.5-10.1) Neutrophils (%) (Auto) % (45.0-75.0) Lymphocytes (%) (Auto) % (20.0-45.0) Monocytes (%) (Auto) % (1.0-10.0) Eosinophils (%) (Auto) % (0.0-3.0) Basophils (%) (Auto) % (0.0-2.0) Differential Total Cells Counted 100 Neutrophils % (Manual) 85 % (45-75) Lymphocytes % (Manual) 11 % (20-45) Monocytes % (Manual) 3 % (1-10) Eosinophils % (Manual) 1 % (0-3) Basophils % (Manual) 0 % (0-2) Band Neutrophils 0 % (0-8) Platelet Estimate Decreased Platelet Morphology Normal Hypochromasia 1+ Anisocytosis 1+ Sodium Level 128 MMOL/L (136-145) Potassium Level 3.7 MMOL/L (3.5-5.1) Chloride Level 91 MMOL/L (98-107) Carbon Dioxide Level 22 MMOL/L (21-32) Anion Gap 15 mmol/L (5-15) Blood Urea Nitrogen 86 mg/dL (7-18) Creatinine 2.4 MG/DL (0.55-1.30) Estimat Glomerular Filtration Rate 21.7 mL/min (>60) Glucose Level 74 MG/DL (74-106) Calcium Level 6.2 MG/DL (8.5-10.1) Phosphorus Level 4.0 MG/DL (2.5-4.9) Magnesium Level 2.0 MG/DL (1.8-2.4) Total Bilirubin 0.5 MG/DL (0.2-1.0) Aspartate Amino Transf (AST/SGOT) 37 U/L (15-37) Alanine Aminotransferase (ALT/SGPT) 23 U/L (12-78) Alkaline Phosphatase 107 U/L (46-116) Total Protein 5.4 G/DL (6.4-8.2) Albumin 1.6 G/DL (3.4-5.0) Globulin 3.8 g/dL Albumin/Globulin Ratio 0.4 (1.0-2.7) Test 03/16/20 06:04 03/16/20 13:47 03/16/20 18:23 03/16/20 23:45 POC Whole Blood Glucose 84 MG/DL (74-106) 86 MG/DL (74-106) 73 MG/DL (74-106) Test 03/17/20 03:30 03/17/20 06:08 03/17/20 07:50 03/17/20 11:32 White Blood Count 6.6 K/UL (4.8-10.8) 6.8 K/UL (4.8-10.8) Red Blood Count 2.52 M/UL (4.20-5.40) 2.41 M/UL (4.20-5.40) Hemoglobin 7.5 G/DL (12.0-16.0) 7.2 G/DL (12.0-16.0) Hematocrit 22.2 % (37.0-47.0) 21.1 % (37.0-47.0) Mean Corpuscular Volume 88 FL (80-99) 87 FL (80-99) Mean Corpuscular Hemoglobin 29.6 PG (27.0-31.0) 30.0 PG (27.0-31.0) Mean Corpuscular Hemoglobin Concent 33.6 G/DL (32.0-36.0) 34.4 G/DL (32.0-36.0) Red Cell Distribution Width 14.4 % (11.6-14.8) 14.2 % (11.6-14.8) Platelet Count 100 K/UL (150-450) 90 K/UL (150-450) Mean Platelet Volume 9.7 FL (6.5-10.1) 10.5 FL (6.5-10.1) Neutrophils (%) (Auto) % (45.0-75.0) % (45.0-75.0) Lymphocytes (%) (Auto) % (20.0-45.0) % (20.0-45.0) Monocytes (%) (Auto) % (1.0-10.0) % (1.0-10.0) Eosinophils (%) (Auto) % (0.0-3.0) % (0.0-3.0) Basophils (%) (Auto) % (0.0-2.0) % (0.0-2.0) POC Whole Blood Glucose 83 MG/DL (74-106) 89 MG/DL (74-106) Differential Total Cells Counted 100 Neutrophils % (Manual) 79 % (45-75) Lymphocytes % (Manual) 15 % (20-45) Monocytes % (Manual) 5 % (1-10) Eosinophils % (Manual) 1 % (0-3) Basophils % (Manual) 0 % (0-2) Band Neutrophils 0 % (0-8) Platelet Estimate Decreased Platelet Morphology Normal Hypochromasia 1+ Anisocytosis 1+ Test 03/17/20 17:18 03/18/20 02:26 03/18/20 03:55 03/18/20 06:40 POC Whole Blood Glucose 93 MG/DL (74-106) 80 MG/DL (74-106) 72 MG/DL (74-106) White Blood Count 5.3 K/UL (4.8-10.8) Red Blood Count 2.37 M/UL (4.20-5.40) Hemoglobin 6.8 G/DL (12.0-16.0) Hematocrit 20.5 % (37.0-47.0) Mean Corpuscular Volume 87 FL (80-99) Mean Corpuscular Hemoglobin 28.5 PG (27.0-31.0) Mean Corpuscular Hemoglobin Concent 33.0 G/DL (32.0-36.0) Red Cell Distribution Width 14.4 % (11.6-14.8) Platelet Count 80 K/UL (150-450) Mean Platelet Volume 8.3 FL (6.5-10.1) Neutrophils (%) (Auto) % (45.0-75.0) Lymphocytes (%) (Auto) % (20.0-45.0) Monocytes (%) (Auto) % (1.0-10.0) Eosinophils (%) (Auto) % (0.0-3.0) Basophils (%) (Auto) % (0.0-2.0) Prothrombin Time 15.1 SEC (9.30-11.50) Prothromb Time International Ratio 1.4 (0.9-1.1) Sodium Level 129 MMOL/L (136-145) Potassium Level 3.6 MMOL/L (3.5-5.1) Chloride Level 94 MMOL/L (98-107) Carbon Dioxide Level 25 MMOL/L (21-32) Anion Gap 10 mmol/L (5-15) Blood Urea Nitrogen 90 mg/dL (7-18) Creatinine 2.6 MG/DL (0.55-1.30) Estimat Glomerular Filtration Rate 19.7 mL/min (>60) Glucose Level 78 MG/DL (74-106) Calcium Level 5.6 MG/DL (8.5-10.1) Phosphorus Level 3.3 MG/DL (2.5-4.9) Magnesium Level 1.8 MG/DL (1.8-2.4) Total Bilirubin 0.4 MG/DL (0.2-1.0) Aspartate Amino Transf (AST/SGOT) 33 U/L (15-37) Alanine Aminotransferase (ALT/SGPT) 19 U/L (12-78) Alkaline Phosphatase 81 U/L (46-116) Total Protein 4.5 G/DL (6.4-8.2) Albumin 1.3 G/DL (3.4-5.0) Globulin 3.2 g/dL Albumin/Globulin Ratio 0.4 (1.0-2.7) Height (Feet): 5 Height (Inches): 3.00 Weight (Pounds): 128 Objective Physical Exam: Vitals: reviewed General: NAD HEENT: nc, at Neck: supple ++trach/vent Chest: clear breath sounds bilaterally Cardiovascular: RRR, no s3, s4 Abdomen: soft, nontender, nd +gtube Extremities: no cce, normal range of motion Neuro: alert Evan Muhammad MD Mar 18, 2020 06:49
--- NOTE | 2020-03-18 07:20 | NUR ---
NURSE NOTES: Received report from laura Vasquez RN. Pt is lying in bed, asleep, not in acute distress, nonverbal but communicates via facial expression. Trach to vent tolerating vent setting of AC 14, TV 500, FiO2 40%, PEEP 5 saturating 98%. G-Tube is intact and patent running Nepro @ 35cc/hr. Peripheral IV in L forearm 22G and R hand 22G are intact and patent. Permacath in R upper chest are intact and patent with no bleeding. Recent labs reviewed. Pt has a transfusion order of 1 PRBC. MD orders reviewed. Will continue to monitor pt. Will continue with the plan of care.
--- NOTE | 2020-03-18 07:22 | NUR ---
Gave report to ERASMO Mcgovern, handed off care of patient.
[2020-03-18 08:00] VITALS: BP 118/48
[2020-03-18] MEDS: Aspirin Baby 81mg GT SCH (08:17)
[2020-03-18] MEDS: Carvedilol 6.25mg Tab GT SCH ×2 (08:18→21:06)
[2020-03-18] MEDS: Dakin's 0.125% Soln (Quarter Strength) 16oz TOPIC SCH (08:19)
[2020-03-18] MEDS: Pantoprazole Inj IVP SCH ×2 (08:19→21:05)
[2020-03-18] MEDS: D5W IV SCH ×2 (08:31→21:05)
[2020-03-18] MEDS: AVIBACTAM IV SCH ×2 (08:31→21:05)
[2020-03-18] MEDS: CEFTAZIDIME IV SCH ×2 (08:31→21:05)
--- NOTE | 2020-03-18 08:45 | Infectious Diseases Prog Note ---
Assessment/Plan 49yo F with: MDR Kleb pna bacteremia AMS Anemia to 1.9 on admission 03/02 Leukocytosis to 40, improving GPC bacteremia UTI Pneumonia c/b mod-large R pleural effusion and small L pleural effusion - compressive atelectasis Hypotension 03/02 BCx 1/2 +Staph epi, 12 +Staph haemolyticus (m/l skin colonizers) UA+, UCx >100k P.stuartii (S-angelo) & CRE P.mirablis (R-polyB/colistin, S- tobramycin, per [facility] is "intrinsically resistant to Avycaz/Zerbaxa" not clear why to me and they are unable to elaborate more) COVID rapid neg, PCR neg CXR: Tracheostomy again demonstrated. Interim placement of a right jugular tunneled dialysis catheter. There is infiltrate and volume loss in the left lung, particularly in the perihilar region, suprahilar region, and base. Consolidation at the lung base is similar. The perihilar and suprahilar region consolidation is new. The right lung pleural space are clear. C.dif neg 03/03 BCx NTD 03/06 BCx 2/2 +MDR Kleb pna (arnett-R, including R-polyB, colistin), 02/14 +E.faecium VRE (R-amp, S-linezolid) 03/08 BCx NTD 03/09 CT CAP: Very limited exam, as described, due to massive anasarca. This could limit visualization of the discrete fluid collection such as an abscess. Extensive thoracoabdominal aortic dissection, as described above. Current flap begins just distal to the left subclavian artery origin; per report, there is history of surgical repair so there may have been surgical repair of the ascending thoracic aorta. Bilateral pleural effusions, slightly smaller than on earlier exams. Extensive atelectasis as a result. Extensive pulmonary par enchymal disease as detailed above. This may reflect pneumonia or pulmonary edema or both. Evidence of pulmonary arterial hypertension, with dilatation of the pulmonary artery. Considerable ascites fluid. 03/11 Chest US: Small right, trace left pleural effusions, insufficient for safe thoracentesis AF Sepsis Leukocytosis Hypoxia on vent Pneumonia c/b L pleural effusion (recurrent, prior determined to be transudative) - s/p thora 01/21, 1050cc removed Volume overload, BNP >35,0000, likely 2/2 progressive CKD --> ESRD ?Pancreatitis, Lipase >2000 Acute anemia to 5s CONS bacteremia, ?contaminant Aflutter w/ RVR 01/13 BCx 2/2 +S. epi COVID PCR neg Flu neg CXR: Large left pleural effusion. Bilateral interstitial and airspace infiltrates versus edema MRSA nares neg 01/16 BCx NTD 01/17 BCx /2 +Staph auricularis (skin colonizer) 01/18 Resp cx +MDR CRE PsA (S-gent, I-colistin, R-polyB) (Intermediate to Zerbaxa, Resistant to Avycaz) 01/18 C.dif neg 01/18 CXR: Similar opacification of the left hemithorax likely representing combination of pleural effusion with atelectasis versus pneumonia/edema. Decreased but persistent hazy opacity throughout the right lung may represent edema versus infectious/inflammatory process. 01/20 BCx NTD 01/21 L thora 1050 cc removed, cx NTD 01/25 Wound cx from Gtube site +CRE Kleb pna (arnett-R) and MDR PsA (colonizers) 01/26 CT A/P: Limited exam, due to severe diffuse anasarca. Ascites. Bilateral pleural effusions. Basilar pulmonary atelectatic changes and consolidation. Gastrostomy. Atrophic left kidney with a nephroureteral stents again demonstrated. Possible retrococcygeal decubitus changes. Correlate with clinical findings, consider MRI if there is concern for sacral osteomyelitis. Right hip intertrochanteric fracture, also previously demonstrated. Left femoral dialysis catheter. Nonspecific right lobe liver lesion is unchanged, not well- demonstrated. ctasia bordering on aneurysmal dilatation and possible chronic dissection of the distal thoracic aorta, also previously described. JAVIER on CKD On previous admission Sep-Oct 2019 required HD for short period Going to start HD this admission again R/o COVID 01/14 COVID PCR neg 12/29 neg at [facility] per report H/o UTI 10/15 u/a wbc 30-40, nit neg, leuk +3; ucx ESBL P. mirablis, ESBL M. morganii //20 u/a wbc tnct, nit neg, leuk +3; ucx >100k MDR P. stuarti (S Ceftriaxone, Meropenem) 8/25 u/a wbc tnct, nit neg, leuk ; ucx >100k VRE 10/15/19 u/a wbc tnct; ucx >100k ESBL P. stuarti (S ertapenem, aztreonam) H/o transudative pleural effusion 11/28 Sp Thora (w: 169, PMN: 2%, L: 49% , LDH: 57, prot 2.5); cx Neg H/o PNA 10/15/19 Resp cx ESBL P. mirabilis, MDR P.a. (S only to Gent) 09/22 Resp cx + MDR PsA (S-gent; I-colistin; R-levofloxacin, Zosyn, angelo) 09/16/19 Sp cx ESBL P. mirablis H/o PPM site (pocket) infection and pocket abscess 2ry to S. epi-11/2018, sp >6weeks IV vancomycin 11/27 SP ABBIE: no evidence for vegetation on any of the valves 11/26/18 SP PPM removal: OR findings:The fibrous capsule enclosing the generator was then opened and there was a [id number] amount of yellowish fluid drainage. The generator was then removed.Atrial and ventricular leads were detached. The necrotic tissue of the pocket was then removed and the pocket was flushed with an antibiotic solution. Capsule, wound tissue and lead tip cx: Neg 2d echo: no vegetation seen US chest: 4.6 x 3.4 x 0.9 cm hypoechoic/anechoic area overlying left chest pacemaker power pack. This could represent either a discrete fluid collection or a focal area of very edematous tissue. Infected fluid pocket also possible. 11/18 Bcx 3/4 S. epi; 11/20 Bcx neg; 11/24 Bcx Neg; 11/27 Bcx Neg CAD s/p CABG GERD/gastritis Afib HTN Dysphagia sp GT Aortic dissection s/p repair 2017 S/p PPM Parkinson's Disease Schizophrenia Anxiety COPD Chronic resp failure s/p trach Hx of tracheal bleeding [place] resident ([facility]) VRE and MRSA colonized Plan: Cont daptomycin #9 given transient VRE bacteremia, sepsis - will need 14 day course from neg BCx 03/08, end date 03/21 CK on 03/13 = 173 (decreasing), next check 03/20 Cont Avycaz #13 given MDR Kleb pna bacteremia - will need 14 day course from neg BCx 03/08, end date 03/21 Remove Stitches in R upper chest, old, need removal Appreciate Surgery input on thoracic aortic aneurysm noted on CT imaging - d/w Dr. Saavedra, pt needs emergent transfer out to [facility] for CT surgery evaluation, primary MD aware Given somewhat transient MDR Kleb pna bacteremia (was not on admission BCx and cleared rapidly after positive BCx), no current indication to remove Permacath as less likely 2/2 line infection and more likely 2/2 gut translocation in setting of GIB, though if leukocytosis persists despite appropriate abx, then will have to reconsider. F/u 03/06 BCx +MDR Kleb pna - need sensi to Avycaz/Zerbaxa (d/w lab, will perform) Trend Hg, GIB Trend BP, WBC 03/16 SP tobramycin IV #10 for resistant UTI 03/10/20 SP edson #4 empiric, vanco #9 01/31 SP angelo/inh tobra #10 for pna 01/23 SP vanco IV #10 given CONS/GPC bacteremia 01/16 SP Zosyn #2 01/14 SP dex 10mg in ED 12/10 SP IV Gentamycin #10 12/07 SP Meropenem #10 12/01 SP IV Vancomycin #5 11/28 Sp Cefepime #2 and IV Gentamycin x1 Monitor CBC/CMP Monitor temp curve, hemodynamics Monitor resp status D/w RN Thank you for this consult. [facility] will continue to follow. Subjective Allergies: Coded Allergies: No Known Allergies (Unverified , 10/10/17) Tmax 100.6 NAD on vent WBC wnl at 5 Hg dropping again to 6s Objective Last 24 Hour Vital Signs Date Time Temp Pulse Resp B/P (MAP) Pulse Ox O2 Delivery O2 Flow Rate FiO2 03/18/20 08:18 69 115/60 03/18/20 04:00 62 03/18/20 04:00 98.6 76 21 113/60 (77) 97 03/18/20 04:00 Mechanical Ventilator 03/18/20 04:00 35 03/18/20 03:13 62 14 40 03/18/20 00:00 Mechanical Ventilator 03/18/20 00:00 74 03/18/20 00:00 70 03/18/20 00:00 100.4 73 22 121/64 (83) 98 03/17/20 23:10 75 20 40 03/17/20 21:45 77 134/61 03/17/20 20:55 100 03/17/20 20:54 40 03/17/20 20:00 100.6 77 28 134/61 (85) 97 03/17/20 20:00 Mechanical Ventilator 03/17/20 19:43 81 03/17/20 19:09 74 31 40 03/17/20 16:00 97.7 72 26 136/67 (90) 99 03/17/20 16:00 Mechanical Ventilator 03/17/20 16:00 40 03/17/20 15:48 66 03/17/20 15:10 70 25 40 03/17/20 13:25 60 20 40 03/17/20 12:00 40 03/17/20 12:00 Mechanical Ventilator 03/17/20 12:00 97.2 60 16 111/56 (74) 98 03/17/20 11:51 66 03/17/20 11:10 62 19 40 03/17/20 08:52 56 110/49 Height (Feet): 5 Height (Inches): 3.00 Weight (Pounds): 128 Gen: NAD HEENT: NCAT, trach Pulm: BL chest rise on vent Abd: Soft, NTND, +PEG Ext: No c/c/e Skin: No visible rashes Neuro: Awake, minimally interactive Lines: R chest Permacath dressing c/d/i Laboratory Tests Test 03/17/20 11:32 03/17/20 17:18 03/18/20 02:26 03/18/20 03:55 POC Whole Blood Glucose 89 MG/DL (74-106) 93 MG/DL (74-106) 80 MG/DL (74-106) White Blood Count 5.3 K/UL (4.8-10.8) Red Blood Count 2.37 M/UL (4.20-5.40) L Hemoglobin 6.8 G/DL (12.0-16.0) *L Hematocrit 20.5 % (37.0-47.0) L Mean Corpuscular Volume 87 FL (80-99) Mean Corpuscular Hemoglobin 28.5 PG (27.0-31.0) Mean Corpuscular Hemoglobin Concent 33.0 G/DL (32.0-36.0) Red Cell Distribution Width 14.4 % (11.6-14.8) Platelet Count 80 K/UL (150-450) L Mean Platelet Volume 8.3 FL (6.5-10.1) Neutrophils (%) (Auto) % (45.0-75.0) Lymphocytes (%) (Auto) % (20.0-45.0) Monocytes (%) (Auto) % (1.0-10.0) Eosinophils (%) (Auto) % (0.0-3.0) Basophils (%) (Auto) % (0.0-2.0) Neutrophils % (Manual) Pending Lymphocytes % (Manual) Pending Platelet Estimate Pending Platelet Morphology Pending Prothrombin Time 15.1 SEC (9.30-11.50) H Prothromb Time International Ratio 1.4 (0.9-1.1) H Sodium Level 129 MMOL/L (136-145) L Potassium Level 3.6 MMOL/L (3.5-5.1) Chloride Level 94 MMOL/L (98-107) L Carbon Dioxide Level 25 MMOL/L (21-32) Anion Gap 10 mmol/L (5-15) Blood Urea Nitrogen 90 mg/dL (7-18) H Creatinine 2.6 MG/DL (0.55-1.30) H Estimat Glomerular Filtration Rate 19.7 mL/min (>60) Glucose Level 78 MG/DL (74-106) Calcium Level 5.6 MG/DL (8.5-10.1) *L Phosphorus Level 3.3 MG/DL (2.5-4.9) Magnesium Level 1.8 MG/DL (1.8-2.4) Total Bilirubin 0.4 MG/DL (0.2-1.0) Aspartate Amino Transf (AST/SGOT) 33 U/L (15-37) Alanine Aminotransferase (ALT/SGPT) 19 U/L (12-78) Alkaline Phosphatase 81 U/L (46-116) Total Protein 4.5 G/DL (6.4-8.2) L Albumin 1.3 G/DL (3.4-5.0) L Globulin 3.2 g/dL Albumin/Globulin Ratio 0.4 (1.0-2.7) L Test 2/3/21 06:40 POC Whole Blood Glucose 72 MG/DL (74-106) L Current Medications Medications (Trade) Dose Ordered Sig/Penny Route PRN Reason Start Time Stop Time Status Last Admin Dose Admin Acetaminophen (Tylenol) 650 mg Q6H PRN GT Mild Pain (Pain Scale 1-3) 03/02/20 22:30 04/01/20 22:29 03/17/20 20:09 Acetaminophen (Tylenol) 650 mg Q6H PRN GT Temp >100.5 03/03/20 03:00 04/01/20 22:29 Aspirin (ASA) 81 mg DAILY GT 03/07/20 09:00 04/21/20 08:59 03/18/20 08:17 Carvedilol (Coreg) 6.25 mg EVERY 12 HOURS GT 03/14/20 21:00 04/13/20 20:59 03/18/20 08:18 Ceftazidime/ Avibactam 0.94 gm/ Dextrose 110 ml @ 110 mls/hr Q12HR IV 03/06/20 13:00 03/20/20 23:59 03/18/20 08:31 Chlorhexidine Gluconate (Ling-Hex 2%) 1 applic DAILY@2000 TOPIC 03/03/20 20:00 06/01/20 19:59 03/17/20 20:07 Daptomycin 500 mg/ Sodium Chloride 50 ml @ 100 mls/hr Q48H IV 03/10/20 13:00 03/21/20 23:59 03/16/20 13:08 Dextrose (Dextrose 50%) 25 ml Q30M PRN IV Hypoglycemia 03/15/20 07:30 06/13/20 07:29 Dextrose (Dextrose 50%) 50 ml Q30M PRN IV Hypoglycemia 03/15/20 07:30 06/13/20 07:29 Hydralazine HCl (Apresoline) 25 mg Q6H PRN GT For High Blood Pressure 03/02/20 22:00 05/31/20 21:59 Loperamide HCl (Imodium) 2 mg Q6H PRN GT Diarrhea 03/06/20 12:45 04/05/20 12:44 03/06/20 13:01 Metoclopramide HCl (Reglan) 5 mg Q8HR IVP 03/04/20 11:45 04/03/20 11:44 03/18/20 06:14 Midodrine (Pro-Amatine) 10 mg EVERY 8 HOURS GT 03/17/20 22:00 06/01/20 12:59 03/18/20 06:14 Pantoprazole (Protonix) 40 mg EVERY 12 HOURS IVP 03/04/20 21:00 04/02/20 20:59 03/18/20 08:19 Polyethylene Glycol (Miralax) 17 gm BEDTIME PRN GT Constipation 03/02/20 22:00 04/01/20 21:59 Sevelamer Carbonate (Renvela) 1,600 mg Q6HR GT 03/17/20 18:00 06/08/20 11:59 03/18/20 08:17 Sodium Hypochlorite (Dakin's Quarter Strength) 1 applic DAILY TOPIC 03/04/20 09:00 04/03/20 08:59 03/18/20 08:19 Sucralfate (Carafate) 1 gm EVERY 6 HOURS GT 03/17/20 18:00 06/09/20 08:59 03/18/20 06:14 Ro Pack M.D. Mar 18, 2020 08:45
--- NOTE | 2020-03-18 10:11 | NUR ---
INSURANCE CLINCALS/REVIEW FAXED TO [facility] T: [phone] F: [phone]
--- NOTE | 2020-03-18 10:30 | NUR ---
NURSE NOTES: Initial assessment done. Pt is not in acute distress. Tolerating vent setting with O2 sat 96-99%. VSS. Transfusion of PRBC started. Pt tolerating well. NPO @ 10am, awaiting paracenthesis. Will continue to closely monitor pt. Will continue with the plan of care.
--- NOTE | 2020-03-18 10:37 | General Progress Note ---
Subjective ROS Limited/Unobtainable: No Allergies: Coded Allergies: No Known Allergies (Unverified , 10/10/17) Objective Last 24 Hour Vital Signs Date Time Temp Pulse Resp B/P (MAP) Pulse Ox O2 Delivery O2 Flow Rate FiO2 03/18/20 08:18 69 115/60 03/18/20 08:00 Mechanical Ventilator 03/18/20 08:00 40 03/18/20 08:00 68 03/18/20 08:00 97.2 64 18 118/48 (71) 99 03/18/20 04:00 62 03/18/20 04:00 98.6 76 21 113/60 (77) 97 03/18/20 04:00 Mechanical Ventilator 03/18/20 04:00 35 03/18/20 03:13 62 14 40 03/18/20 00:00 Mechanical Ventilator 03/18/20 00:00 74 03/18/20 00:00 70 03/18/20 00:00 100.4 73 22 121/64 (83) 98 03/17/20 23:10 75 20 40 03/17/20 21:45 77 134/61 03/17/20 20:55 100 03/17/20 20:54 40 03/17/20 20:00 100.6 77 28 134/61 (85) 97 03/17/20 20:00 Mechanical Ventilator 03/17/20 19:43 81 03/17/20 19:09 74 31 40 03/17/20 16:00 97.7 72 26 136/67 (90) 99 03/17/20 16:00 Mechanical Ventilator 03/17/20 16:00 40 03/17/20 15:48 66 03/17/20 15:10 70 25 40 03/17/20 13:25 60 20 40 03/17/20 12:00 40 03/17/20 12:00 Mechanical Ventilator 03/17/20 12:00 97.2 60 16 111/56 (74) 98 03/17/20 11:51 66 03/17/20 11:10 62 19 40 Intake and Output 03/17/20 03/18/20 19:00 07:00 Intake Total 770 ml Output Total 50 ml 1050 ml Balance 720 ml -1050 ml Intake Free Water 60 ml IV Total 110 ml Tube Feeding 350 ml Blood Product 250 ml Output Urine Total 50 ml 1050 ml # Bowel Movements 2 Laboratory Tests 03/17/20 11:32: POC Whole Blood Glucose 89 03/17/20 17:18: POC Whole Blood Glucose 93 03/18/20 02:26: POC Whole Blood Glucose 80 03/18/20 03:55: White Blood Count 5.3, Red Blood Count 2.37L, Hemoglobin 6.8*L, Hematocrit 20.5L , Mean Corpuscular Volume 87, Mean Corpuscular Hemoglobin 28.5, Mean Corpuscular Hemoglobin Concent 33.0, Red Cell Distribution Width 14.4, Platelet Count 80L, Mean Platelet Volume 8.3, Neutrophils (%) (Auto) , Lymphocytes (%) (Auto) , Monocytes (%) (Auto) , Eosinophils (%) (Auto) , Basophils (%) (Auto) , Differential Total Cells Counted 100, Neutrophils % (Manual) 78H, Lymphocytes % (Manual) 15L, Monocytes % (Manual) 7, Eosinophils % (Manual) 0, Basophils % (Manual) 0, Band Neutrophils 0, Platelet Estimate DecreasedL, Platelet Morphology Normal, Hypochromasia 1+, Prothrombin Time 15.1H, Prothromb Time International Ratio 1.4H, Sodium Level 129L, Potassium Level 3.6, Chloride Level 94L, Carbon Dioxide Level 25, Anion Gap 10, Blood Urea Nitrogen 90H, Creatinine 2.6H, Estimat Glomerular Filtration Rate 19.7, Glucose Level 78, Calcium Level 5.6*L, Phosphorus Level 3.3, Magnesium Level 1.8, Total Bilirubin 0.4, Aspartate Amino Transf (AST/SGOT) 33, Alanine Aminotransferase (ALT/SGPT) 19, Alkaline Phosphatase 81, Total Protein 4.5L, Albumin 1.3L, Globulin 3.2, Albumin/Globulin Ratio 0.4L 03/18/20 06:40: POC Whole Blood Glucose 72L 03/18/20 09:38: POC Whole Blood Glucose 104 Height (Feet): 5 Height (Inches): 3.00 Weight (Pounds): 128 General Appearance: no apparent distress EENT: normal ENT inspection Neck: supple Cardiovascular: normal rate Respiratory/Chest: decreased breath sounds Abdomen: hypoactive bowel sounds Extremities: non-tender Assessment/Plan Problem List: (1) Hx of CABG ICD Codes: Z95.1 - Presence of aortocoronary bypass graft SNOMED: 770967448, 830812088 (2) History of tracheostomy ICD Codes: Z98.890 - Other specified postprocedural states SNOMED: 467964713, 256291312 (3) PEG (percutaneous endoscopic gastrostomy) status ICD Codes: Z93.1 - Gastrostomy status SNOMED: 474846699, 892440361 (4) Renal failure ICD Codes: N19 - Unspecified kidney failure SNOMED: 26587995, 408302244 (5) Severe anemia ICD Codes: D64.9 - Anemia, unspecified SNOMED: 085183002 Assessment/Plan: s/p EGD gastric ulcer on ppi and carafate fu H&H s/p one unit PRBC 03/11/20, 03/15, 03/18/20 GTF drop in H&H again without obvious bleeding per nurses no melena or hematochezia plan repeat cbc tomorow one unit prbc stool ob Inder Mccauley MD Mar 18, 2020 10:37
--- NOTE | 2020-03-18 10:39 | NUR ---
NURSE NOTES: Notified Dr. Muhammad H/H today with orders 2 units PRBC-
[2020-03-18] MEDS: Acetaminophen 650mg/20.3ml GT PRN (11:14)
[2020-03-18 12:00] VITALS: BP 126/62
--- NOTE | 2020-03-18 13:20 | Nephrology Progress Note ---
Assessment/Plan Problem List: (1) Renal failure (ARF), acute on chronic (2) Anemia (3) Hyponatremia (4) Respiratory failure Assessment (1) JAVIER (acute kidney injury) (2) Renal failure (ARF), acute on chronic (3) Feeding by G-tube (4) Tracheostomy in place (5) Electrolyte imbalance, hyponatremia (6) Anemia, severe (7) Respiratory failure, acute and chronic (8) history of elevated lipase, pancreatitis (9) Elevated troponin I (10) Sepsis Plan March 18: Labs reviewed. Will dialyze tomorrow. Patient being transfused today. Patient due for abdominal paracentesis. We will keep the Norman in. Continue to monitor renal parameters and dialyze as needed. March 17: No CHEM panel done today. CBC reviewed. Hemoglobin is lowering. Dialyzed yesterday. Will check lab tomorrow. Continue per consultants. March 16: Labs reviewed. Due for dialysis today. Hemoglobin 10.2 today. Continue to monitor renal parameters. March 15: Labs reviewed. Dialyzed March 13. Due for dialysis March 16. Hemoglobin lower. 1 unit of packed RBCs ordered. Per orders. March 14: No labs drawn today. Dialyzed yesterday. Full code. Will check lab tomorrow. Dialysis as needed. March 13: Labs reviewed. Due for dialysis today. Patient remains full code. Continue per current management. March 12: Labs reviewed. Dialyzed yesterday. Due for dialysis tomorrow. Discussed with RN. Patient full code. Continue per current management. March 11: Labs reviewed. Dialyzed this morning. Phosphorus binders dose adjusted. Continue per consultants. Continue to monitor renal parameters. CT: Extensive thoracoabdominal aortic dissection March 10: Labs reviewed. Will order dialysis tomorrow. Phosphorus binders added. Continue per consultants. March 09: No chemistry panel done today. Patient dialyzed yesterday. On dextrose 10% for hypoglycemia. We will check labs tomorrow. Dialysis as needed. March 08: Labs reviewed. Will order dialysis today. Blood sugar low. D10 50 cc an hour started. Continue as is. March 07: Labs reviewed. Dialyzed March 05 and March 06. Continue to monitor renal parameters and hemoglobin. Abnormal electrolytes addressed. IV fluids stopped. Per orders. March 06: Labs reviewed. Dialyzed yesterday. Will reorder dialysis for today. Continue to monitor renal parameters. Hemoglobin 8.4. Patient full code. March 05: Labs reviewed. Patient did not receive dialysis until this morning. Proceed with dialysis. Continue to monitor renal parameters and hemoglobin and hematocrit. March 04: Labs reviewed. Hemoglobin lower. Patient actively bleeding. Was not dialyzed yesterday. Due for GI endoscopy. Continue fluid challenge. Transfusion as needed. Dialysis today. March 03: Labs reviewed. Dialysis ordered. Blood pressure medication all discontinued due to hypotensive state. Albumin bolus given. Continue to monitor renal parameters. Medication list reviewed. Midodrin for low blood pressure ordered Subjective ROS Limited/Unobtainable: Yes Objective Objective Last 24 Hour Vital Signs Date Time Temp Pulse Resp B/P (MAP) Pulse Ox O2 Delivery O2 Flow Rate FiO2 03/18/20 12:00 Mechanical Ventilator 03/18/20 12:00 67 03/18/20 12:00 97.2 73 22 126/62 (83) 100 03/18/20 12:00 40 03/18/20 08:18 69 115/60 03/18/20 08:00 Mechanical Ventilator 03/18/20 08:00 40 03/18/20 08:00 68 03/18/20 08:00 97.2 64 18 118/48 (71) 99 03/18/20 04:00 62 03/18/20 04:00 98.6 76 21 113/60 (77) 97 03/18/20 04:00 Mechanical Ventilator 03/18/20 04:00 35 03/18/20 03:13 62 14 40 03/18/20 00:00 Mechanical Ventilator 03/18/20 00:00 74 03/18/20 00:00 70 03/18/20 00:00 100.4 73 22 121/64 (83) 98 03/17/20 23:10 75 20 40 03/17/20 21:45 77 134/61 03/17/20 20:55 100 03/17/20 20:54 40 03/17/20 20:00 100.6 77 28 134/61 (85) 97 03/17/20 20:00 Mechanical Ventilator 03/17/20 19:43 81 03/17/20 19:09 74 31 40 03/17/20 16:00 97.7 72 26 136/67 (90) 99 03/17/20 16:00 Mechanical Ventilator 03/17/20 16:00 40 03/17/20 15:48 66 03/17/20 15:10 70 25 40 03/17/20 13:25 60 20 40 Intake and Output 03/17/20 03/18/20 19:00 07:00 Intake Total 770 ml 35 ml Output Total 50 ml 1050 ml Balance 720 ml -1015 ml Intake Free Water 60 ml IV Total 110 ml Tube Feeding 350 ml 35 ml Blood Product 250 ml Output Urine Total 50 ml 1050 ml # Bowel Movements 2 Current Medications Medications (Trade) Dose Ordered Sig/Penny Route PRN Reason Start Time Stop Time Status Last Admin Dose Admin Acetaminophen (Tylenol) 650 mg Q6H PRN GT Mild Pain (Pain Scale 1-3) 03/02/20 22:30 04/01/20 22:29 03/18/20 11:14 Acetaminophen (Tylenol) 650 mg Q6H PRN GT Temp >100.5 03/03/20 03:00 04/01/20 22:29 Aspirin (ASA) 81 mg DAILY GT 03/07/20 09:00 04/21/20 08:59 03/18/20 08:17 Carvedilol (Coreg) 6.25 mg EVERY 12 HOURS GT 03/14/20 21:00 04/13/20 20:59 03/18/20 08:18 Ceftazidime/ Avibactam 0.94 gm/ Dextrose 110 ml @ 110 mls/hr Q12HR IV 03/06/20 13:00 03/20/20 23:59 03/18/20 08:31 Chlorhexidine Gluconate (Ling-Hex 2%) 1 applic DAILY@2000 TOPIC 03/03/20 20:00 06/01/20 19:59 03/17/20 20:07 Daptomycin 500 mg/ Sodium Chloride 50 ml @ 100 mls/hr Q48H IV 03/10/20 13:00 03/21/20 23:59 03/16/20 13:08 Dextrose (Dextrose 50%) 25 ml Q30M PRN IV Hypoglycemia 03/15/20 07:30 06/13/20 07:29 Dextrose (Dextrose 50%) 50 ml Q30M PRN IV Hypoglycemia 03/15/20 07:30 06/13/20 07:29 Hydralazine HCl (Apresoline) 25 mg Q6H PRN GT For High Blood Pressure 03/02/20 22:00 05/31/20 21:59 Loperamide HCl (Imodium) 2 mg Q6H PRN GT Diarrhea 03/06/20 12:45 04/05/20 12:44 03/06/20 13:01 Metoclopramide HCl (Reglan) 5 mg Q8HR IVP 03/04/20 11:45 04/03/20 11:44 03/18/20 06:14 Midodrine (Pro-Amatine) 10 mg EVERY 8 HOURS GT 03/17/20 22:00 06/01/20 12:59 03/18/20 06:14 Pantoprazole (Protonix) 40 mg EVERY 12 HOURS IVP 03/04/20 21:00 04/02/20 20:59 03/18/20 08:19 Polyethylene Glycol (Miralax) 17 gm BEDTIME PRN GT Constipation 03/02/20 22:00 04/01/20 21:59 Sevelamer Carbonate (Renvela) 1,600 mg Q6HR GT 03/17/20 18:00 06/08/20 11:59 03/18/20 12:30 Sodium Hypochlorite (Dakin's Quarter Strength) 1 applic DAILY TOPIC 03/04/20 09:00 04/03/20 08:59 03/18/20 08:19 Sucralfate (Carafate) 1 gm EVERY 6 HOURS GT 03/17/20 18:00 06/09/20 08:59 03/18/20 12:30 Laboratory Tests 03/17/20 17:18: POC Whole Blood Glucose 93 03/18/20 02:26: POC Whole Blood Glucose 80 03/18/20 03:55: White Blood Count 5.3, Red Blood Count 2.37L, Hemoglobin 6.8*L, Hematocrit 20.5L , Mean Corpuscular Volume 87, Mean Corpuscular Hemoglobin 28.5, Mean Corpuscular Hemoglobin Concent 33.0, Red Cell Distribution Width 14.4, Platelet Count 80L, Mean Platelet Volume 8.3, Neutrophils (%) (Auto) , Lymphocytes (%) (Auto) , Monocytes (%) (Auto) , Eosinophils (%) (Auto) , Basophils (%) (Auto) , Differential Total Cells Counted 100, Neutrophils % (Manual) 78H, Lymphocytes % (Manual) 15L, Monocytes % (Manual) 7, Eosinophils % (Manual) 0, Basophils % (Manual) 0, Band Neutrophils 0, Platelet Estimate DecreasedL, Platelet Morphology Normal, Hypochromasia 1+, Prothrombin Time 15.1H, Prothromb Time International Ratio 1.4H, Sodium Level 129L, Potassium Level 3.6, Chloride Level 94L, Carbon Dioxide Level 25, Anion Gap 10, Blood Urea Nitrogen 90H, Creatinine 2.6H, Estimat Glomerular Filtration Rate 19.7, Glucose Level 78, Calcium Level 5.6*L, Phosphorus Level 3.3, Magnesium Level 1.8, Total Bilirubin 0.4, Aspartate Amino Transf (AST/SGOT) 33, Alanine Aminotransferase (ALT/SGPT) 19, Alkaline Phosphatase 81, Total Protein 4.5L, Albumin 1.3L, Globulin 3.2, Albumin/Globulin Ratio 0.4L 03/18/20 06:40: POC Whole Blood Glucose 72L 03/18/20 09:38: POC Whole Blood Glucose 104 03/18/20 12:16: POC Whole Blood Glucose 82 Height (Feet): 5 Height (Inches): 3.00 Weight (Pounds): 128 General Appearance: no apparent distress EENT: other - Trach to vent Cardiovascular: normal rate Respiratory/Chest: decreased breath sounds Abdomen: distended Johnny Houston MD Mar 18, 2020 13:20
[2020-03-18] MEDS: SODIUM CHLORIDE IV SCH (13:21)
[2020-03-18] MEDS: DAPTOMYCIN 500 MG IV SCH (13:21)
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
--- NOTE | 2020-03-18 13:33 | Pre-Procedure Note/Attestation ---
Pre-Procedure Note/Attestation Complete Prior to Procedure Planned Procedure: not applicable Procedure Narrative: paracentesis Indications for Procedure Pre-Operative Diagnosis: ascites Attestation I attest that I discussed the nature of the procedure; its benefits; risks and complications; and alternatives (and the risks and benefits of such alternatives), prior to the procedure, with the patient (or the patient's legal credit resolution representative). I attest that, if there was a reasonable possibility of needing a blood mendoza sfusion, the patient (or the patient's legal credit resolution representative) was given the [facility] standardized written summary, pursuant to the Deo Cash Blood Safety Act ([place] Health and Safety Code # 1645, as amended). I attest that I re-evaluated the patient just prior to the surgery and that there has been no change in the patient's H&P, except as documented below: Discussed by phone with pt's. mother at 1330 Armen Cantu MD Mar 18, 2020 13:33
--- NOTE | 2020-03-18 14:00 | NUR ---
NURSE NOTES: Blood transfusion done. No adverse reaction. Awaiting another bag of PRBC for transfusion. Awaiting paracentesis. VSS. Will continue to closely monitor pt.
--- NOTE | 2020-03-18 14:10 | Pulmonology Progress Note ---
Subjective ROS Limited/Unobtainable: Yes Interval Events: due for paracentesis HEENT: Repors: no symptoms Respiratory: Reports: no symptoms Cardiovascular: Reports: no symptoms Gastrointestinal/Abdominal: Reports: diarrhea Allergies: Coded Allergies: No Known Allergies (Unverified , 10/10/17) All Systems: reviewed and negative except above Objective Last 24 Hour Vital Signs Date Time Temp Pulse Resp B/P (MAP) Pulse Ox O2 Delivery O2 Flow Rate FiO2 03/18/20 12:00 Mechanical Ventilator 03/18/20 12:00 67 03/18/20 12:00 97.2 73 22 126/62 (83) 100 03/18/20 12:00 40 03/18/20 08:18 69 115/60 03/18/20 08:00 Mechanical Ventilator 03/18/20 08:00 40 03/18/20 08:00 68 03/18/20 08:00 97.2 64 18 118/48 (71) 99 03/18/20 04:00 62 03/18/20 04:00 98.6 76 21 113/60 (77) 97 03/18/20 04:00 Mechanical Ventilator 03/18/20 04:00 35 03/18/20 03:13 62 14 40 03/18/20 00:00 Mechanical Ventilator 03/18/20 00:00 74 03/18/20 00:00 70 03/18/20 00:00 100.4 73 22 121/64 (83) 98 03/17/20 23:10 75 20 40 03/17/20 21:45 77 134/61 03/17/20 20:55 100 03/17/20 20:54 40 03/17/20 20:00 100.6 77 28 134/61 (85) 97 03/17/20 20:00 Mechanical Ventilator 03/17/20 19:43 81 03/17/20 19:09 74 31 40 03/17/20 16:00 97.7 72 26 136/67 (90) 99 03/17/20 16:00 Mechanical Ventilator 03/17/20 16:00 40 03/17/20 15:48 66 03/17/20 15:10 70 25 40 Intake and Output 03/17/20 03/18/20 19:00 07:00 Intake Total 770 ml 35 ml Output Total 50 ml 1050 ml Balance 720 ml -1015 ml Intake Free Water 60 ml IV Total 110 ml Tube Feeding 350 ml 35 ml Blood Product 250 ml Output Urine Total 50 ml 1050 ml # Bowel Movements 2 General Appearance: no acute distress HEENT: atraumatic Respiratory: lungs clear Cardiovascular: normal rate, regular rhythm Extremities: other - edema bilateral Laboratory Tests 03/17/20 17:18: POC Whole Blood Glucose 93 03/18/20 02:26: POC Whole Blood Glucose 80 03/18/20 03:55: White Blood Count 5.3, Red Blood Count 2.37L, Hemoglobin 6.8*L, Hematocrit 20.5L , Mean Corpuscular Volume 87, Mean Corpuscular Hemoglobin 28.5, Mean Corpuscular Hemoglobin Concent 33.0, Red Cell Distribution Width 14.4, Platelet Count 80L, Mean Platelet Volume 8.3, Neutrophils (%) (Auto) , Lymphocytes (%) (Auto) , Monocytes (%) (Auto) , Eosinophils (%) (Auto) , Basophils (%) (Auto) , Differential Total Cells Counted 100, Neutrophils % (Manual) 78H, Lymphocytes % (Manual) 15L, Monocytes % (Manual) 7, Eosinophils % (Manual) 0, Basophils % (Manual) 0, Band Neutrophils 0, Platelet Estimate DecreasedL, Platelet Morphology Normal, Hypochromasia 1+, Prothrombin Time 15.1H, Prothromb Time International Ratio 1.4H, Sodium Level 129L, Potassium Level 3.6, Chloride Level 94L, Carbon Dioxide Level 25, Anion Gap 10, Blood Urea Nitrogen 90H, Creatinine 2.6H, Estimat Glomerular Filtration Rate 19.7, Glucose Level 78, Calcium Level 5.6*L, Phosphorus Level 3.3, Magnesium Level 1.8, Total Bilirubin 0.4, Aspartate Amino Transf (AST/SGOT) 33, Alanine Aminotransferase (ALT/SGPT) 19, Alkaline Phosphatase 81, Total Protein 4.5L, Albumin 1.3L, Globulin 3.2, Albumin/Globulin Ratio 0.4L 03/18/20 06:40: POC Whole Blood Glucose 72L 03/18/20 09:38: POC Whole Blood Glucose 104 03/18/20 12:16: POC Whole Blood Glucose 82 Current Medications Medications (Trade) Dose Ordered Sig/Penny Route PRN Reason Start Time Stop Time Status Last Admin Dose Admin Acetaminophen (Tylenol) 650 mg Q6H PRN GT Mild Pain (Pain Scale 1-3) 03/02/20 22:30 04/01/20 22:29 03/18/20 11:14 Acetaminophen (Tylenol) 650 mg Q6H PRN GT Temp >100.5 03/03/20 03:00 04/01/20 22:29 Aspirin (ASA) 81 mg DAILY GT 03/07/20 09:00 04/21/20 08:59 03/18/20 08:17 Carvedilol (Coreg) 6.25 mg EVERY 12 HOURS GT 03/14/20 21:00 04/13/20 20:59 03/18/20 08:18 Ceftazidime/ Avibactam 0.94 gm/ Dextrose 110 ml @ 110 mls/hr Q12HR IV 03/06/20 13:00 03/20/20 23:59 03/18/20 08:31 Chlorhexidine Gluconate (Ling-Hex 2%) 1 applic DAILY@2000 TOPIC 03/03/20 20:00 06/01/20 19:59 03/17/20 20:07 Daptomycin 500 mg/ Sodium Chloride 50 ml @ 100 mls/hr Q48H IV 03/10/20 13:00 03/21/20 23:59 03/18/20 13:21 Dextrose (Dextrose 50%) 25 ml Q30M PRN IV Hypoglycemia 03/15/20 07:30 06/13/20 07:29 Dextrose (Dextrose 50%) 50 ml Q30M PRN IV Hypoglycemia 03/15/20 07:30 06/13/20 07:29 Hydralazine HCl (Apresoline) 25 mg Q6H PRN GT For High Blood Pressure 03/02/20 22:00 05/31/20 21:59 Loperamide HCl (Imodium) 2 mg Q6H PRN GT Diarrhea 03/06/20 12:45 04/05/20 12:44 03/06/20 13:01 Metoclopramide HCl (Reglan) 5 mg Q8HR IVP 03/04/20 11:45 04/03/20 11:44 03/18/20 13:22 Midodrine (Pro-Amatine) 10 mg EVERY 8 HOURS GT 03/17/20 22:00 06/01/20 12:59 03/18/20 06:14 Pantoprazole (Protonix) 40 mg EVERY 12 HOURS IVP 03/04/20 21:00 04/02/20 20:59 03/18/20 08:19 Polyethylene Glycol (Miralax) 17 gm BEDTIME PRN GT Constipation 03/02/20 22:00 04/01/20 21:59 Sevelamer Carbonate (Renvela) 1,600 mg Q6HR GT 03/17/20 18:00 06/08/20 11:59 03/18/20 12:30 Sodium Hypochlorite (Dakin's Quarter Strength) 1 applic DAILY TOPIC 03/04/20 09:00 04/03/20 08:59 03/18/20 08:19 Sucralfate (Carafate) 1 gm EVERY 6 HOURS GT 03/17/20 18:00 06/09/20 08:59 03/18/20 12:30 Assessment/Plan Assessment/Plan 1. Chronic respiratory failure. - CT chest/abd/pelv: improving pleural effusion 2. Mechanical ventilation. - current setting at AC 14, Vt 500, FiO2 40%, PEEP 5 saturating at 96% - continue current setting - suction secretions as needed 3. Chronic tracheostomy. 4. Chronic G-tube. 5. Anemia. - s/p transfusion - stool OB positive - off anticoags - will be transfused again 6. Renal failure. 7. Leukocytosis and sepsis. - WBC now resolved 8. Sepsis UTI 9. Gram positive cocci bacteremia - f/u BCx negative for growth 10. COVID-19 negative 11. Diarrhea - C. diff neg 12. Hypoglycemia - resolved 13. Bradycardia - no urgent indication for pacemaker per cardio 14. Gastric ulcer - on PPI - GI following 15. Pleural effusion - small; insufficient volume for safe thoracentesis 16. thoracic aortic aneurysm - noted on CT imaging - pt needs emergent transfer out to [facility] for CT surgery evaluation, primary MD aware - Pt might not be a candidate for TAA repair We will follow carefully. ID and Hematology following. The care for this patient was discussed with my supervising physician Time spent for this case was approximately 31 minutes Cruz Wilson Mar 18, 2020 14:10
--- NOTE | 2020-03-18 15:20 | NUR ---
NURSE NOTES: Paracentesis done. 3 L of fluid out. VSS. Tube feeding resumed. Will continue to closely monitor pt.
--- NOTE | 2020-03-18 15:40 | Brief Operative Note ---
Immediate Post Operative Note Operative Note Pre-op Diagnosis: ascites Procedure: paracentesis Post-op Diagnosis: same as pre-op Surgeon: Eli David Anesthesia: local Specimen: yes - 50 ml fluid sent to lab Complications: none Fluids: none Implant(s) used?: No Armen David MD Mar 18, 2020 15:40
--- NOTE | 2020-03-18 15:49 | Diagnostic Imaging Report ---
Indications: Ascites Technique: Ultrasound used to localize optimal puncture site. Sterile prepping and draping right lower quadrant. Local anesthesia with 1% lidocaine. Under real-time ultrasound guidance, puncture peritoneal space using paracentesis needle. Stylet removed. Catheter placed to vacuum bottle suction. Total 2.3 liters of fluid aspirated. Patient tolerated procedure well, without immediate complication.. A specimen was sent to the lab Findings: Followup sonography demonstrates complete resolution of peritoneal fluid. Impression: Successful ultrasound-guided paracentesis, yielding 2.3 liters of fluid
[2020-03-18 16:00] VITALS: BP 126/66
--- NOTE | 2020-03-18 18:55 | NUR ---
NURSE NOTES: 2nd unit of PRBC transfused. Pt tolerated well. No adverse reaction. VSS. Will continue to monitor pt.
--- NOTE | 2020-03-18 19:30 | NUR ---
NURSE HAND-OFF REPORT: Important Events on Shift:2 units PRBC transfused Patient Status: full code Diet: Nepro @ 35 cc/hr Pending Orders: N Pending Results/Labs:N Pending MD notification:N Latest Vital Signs: Temperature 97.2 , Pulse 70 , B/P 126 /66 , Respiratory Rate 23 , O2 SAT 100 , Mechanical Ventilator, O2 Flow Rate . Vital Sign Comment: stable EKG Rhythm: Sinus Rhythm Rhythm change?: N MD Notified?: N -Dr Екатерина HATFIELD Response: No New Orders Received Latest [place] Fall Score: 50 Fall Risk: High Risk Safety Measures: Call light Within Reach, Bed Alarm Zone 2, Side Rails Side Rails x2, Bed position Low and Locked. Fall Precautions: Yellow Socks Report given to ERASMO Nix.
--- NOTE | 2020-03-18 19:31 | NUR ---
NURSE NOTES: Received report from ERASMO Mcgovern. Pt is lying in bed in semi- crisostomo's position. Pt is alert to name and stimulated by voice. Pt has trach to vent with settings as ordered fio2- 40% tolerating well, o2 sat- 100%. Pt has no signs of pain, pt is sleeping in bed in comfortable position. Pt has raymond, anuric. Current IVs intact and patent. Right upper chest with permacath no bleeding noted, dressing applied and changed today. No residual noted right now. Bed in lowest position, call light within reach. Continue to plan of care.
[2020-03-18 20:00] VITALS: BP 121/69
[2020-03-18] MEDS: Dyna-Hex 2% Top Sol 2oz TOPIC SCH (20:00)
--- NOTE | 2020-03-18 21:00 | NUR ---
NURSE NOTES: Patient tolerated all due meds well. No acute distress noted. Will continue to monitor.
[2020-03-18] MEDS: Hydromorphone 0.5mg/0.5ml inj IVP PRN (21:07)
--- NOTE | 2020-03-18 22:21 | Cardiology Progress Note ---
Subjective DATE OF SERVICE: Mar 18, 2020 Heart rates remain in stable range; carvedilol dose advanced over past few days, in setting of aortic dissection. BP parameters stable. CT scan now reveals extensive thoracoabd aortic dissection. Dialysis per renal; last session was 03/17/20 Pt is s/p paracentesis today (50cc) Objective Last 24 Hour Vital Signs Date Time Temp Pulse Resp B/P (MAP) Pulse Ox O2 Delivery O2 Flow Rate FiO2 03/18/20 21:06 66 121/69 03/18/20 20:00 Mechanical Ventilator 03/18/20 20:00 97.0 66 23 121/69 (86) 100 03/18/20 20:00 40 03/18/20 19:19 58 17 40 03/18/20 19:02 61 03/18/20 16:00 40 03/18/20 16:00 70 03/18/20 16:00 Mechanical Ventilator 03/18/20 16:00 97.2 70 23 126/66 (86) 100 03/18/20 15:10 67 23 40 03/18/20 12:00 Mechanical Ventilator 03/18/20 12:00 67 03/18/20 12:00 97.2 73 22 126/62 (83) 100 03/18/20 12:00 40 03/18/20 11:00 73 18 40 03/18/20 08:18 69 115/60 03/18/20 08:00 Mechanical Ventilator 03/18/20 08:00 40 03/18/20 08:00 68 03/18/20 08:00 97.2 64 18 118/48 (71) 99 03/18/20 07:16 64 18 40 03/18/20 04:00 62 03/18/20 04:00 98.6 76 21 113/60 (77) 97 03/18/20 04:00 Mechanical Ventilator 03/18/20 04:00 35 03/18/20 03:13 62 14 40 03/18/20 00:00 Mechanical Ventilator 03/18/20 00:00 74 03/18/20 00:00 70 03/18/20 00:00 100.4 73 22 121/64 (83) 98 03/17/20 23:10 75 20 40 HEENT: Thin Trach secretions RHYTHM: NSR, SB LUNGS: bilateral rhonchi - few, trach site clean CARDIAC: normal rate, regular rhythm, normal S1 and S2 ABDOMEN: normal bowel sounds, non tender, soft, G-Tube intact EXTREMITIES: normal range of motion, non-tender, normal inspection Laboratory Tests Test 03/18/20 02:26 03/18/20 03:55 03/18/20 06:40 03/18/20 09:38 POC Whole Blood Glucose 80 MG/DL (74-106) 72 MG/DL (74-106) L 104 MG/DL (74-106) White Blood Count 5.3 K/UL (4.8-10.8) Red Blood Count 2.37 M/UL (4.20-5.40) L Hemoglobin 6.8 G/DL (12.0-16.0) *L Hematocrit 20.5 % (37.0-47.0) L Mean Corpuscular Volume 87 FL (80-99) Mean Corpuscular Hemoglobin 28.5 PG (27.0-31.0) Mean Corpuscular Hemoglobin Concent 33.0 G/DL (32.0-36.0) Red Cell Distribution Width 14.4 % (11.6-14.8) Platelet Count 80 K/UL (150-450) L Mean Platelet Volume 8.3 FL (6.5-10.1) Neutrophils (%) (Auto) % (45.0-75.0) Lymphocytes (%) (Auto) % (20.0-45.0) Monocytes (%) (Auto) % (1.0-10.0) Eosinophils (%) (Auto) % (0.0-3.0) Basophils (%) (Auto) % (0.0-2.0) Differential Total Cells Counted 100 Neutrophils % (Manual) 78 % (45-75) H Lymphocytes % (Manual) 15 % (20-45) L Monocytes % (Manual) 7 % (1-10) Eosinophils % (Manual) 0 % (0-3) Basophils % (Manual) 0 % (0-2) Band Neutrophils 0 % (0-8) Platelet Estimate Decreased L Platelet Morphology Normal Hypochromasia 1+ Prothrombin Time 15.1 SEC (9.30-11.50) H Prothromb Time International Ratio 1.4 (0.9-1.1) H Sodium Level 129 MMOL/L (136-145) L Potassium Level 3.6 MMOL/L (3.5-5.1) Chloride Level 94 MMOL/L (98-107) L Carbon Dioxide Level 25 MMOL/L (21-32) Anion Gap 10 mmol/L (5-15) Blood Urea Nitrogen 90 mg/dL (7-18) H Creatinine 2.6 MG/DL (0.55-1.30) H Estimat Glomerular Filtration Rate 19.7 mL/min (>60) Glucose Level 78 MG/DL (74-106) Calcium Level 5.6 MG/DL (8.5-10.1) *L Phosphorus Level 3.3 MG/DL (2.5-4.9) Magnesium Level 1.8 MG/DL (1.8-2.4) Total Bilirubin 0.4 MG/DL (0.2-1.0) Aspartate Amino Transf (AST/SGOT) 33 U/L (15-37) Alanine Aminotransferase (ALT/SGPT) 19 U/L (12-78) Alkaline Phosphatase 81 U/L (46-116) Total Protein 4.5 G/DL (6.4-8.2) L Albumin 1.3 G/DL (3.4-5.0) L Globulin 3.2 g/dL Albumin/Globulin Ratio 0.4 (1.0-2.7) L Test 03/18/20 12:16 03/18/20 17:51 POC Whole Blood Glucose 82 MG/DL (74-106) 76 MG/DL (74-106) Assessment/Plan Assessment/Plan Aortic dissections Sepsis with recovered shock Sinus node disease with bradycardia Hx pacemaker explant Ischemic cardiomyopathy - hx CABG? Paroxysmal Atrial Fib Respiratory failure with trach Hx thoracic aortic aneurysm repair ESRD Anemia - worse today Will continue current dose of beta flori (with hold parameter) and advance as tolerated by underlying sinus node disease site monitor Vent support Antimicrobials DVT prophyl No urgent indication for pacemaker at present. HD/UF per renal F/U paracentesis fluid results Needs higher level of care ultimately for repair of aortic dissection, although may not be a surgical candidate Deni Willams MD Mar 18, 2020 22:21
--- NOTE | 2020-03-18 23:05 | NUR ---
NURSE NOTES: Seen and examined by KEKE Wu at this time. Continue with current plan of care.
--- NOTE | 2020-03-18 23:38 | General Progress Note ---
Subjective Constitutional: Reports: no symptoms HEENT: Reports: no symptoms Cardiovascular: Reports: no symptoms Respiratory: Reports: no symptoms Gastrointestinal/Abdominal: Reports: no symptoms Genitourinary: Reports: no symptoms Neurologic/Psychiatric: Reports: no symptoms Endocrine: Reports: no symptoms Hematologic/Lymphatic: Reports: no symptoms Allergies: Coded Allergies: No Known Allergies (Unverified , 10/10/17) Objective Last 24 Hour Vital Signs Date Time Temp Pulse Resp B/P (MAP) Pulse Ox O2 Delivery O2 Flow Rate FiO2 03/18/20 21:37 97.0 03/18/20 21:06 66 121/69 03/18/20 20:00 Mechanical Ventilator 03/18/20 20:00 97.0 66 23 121/69 (86) 100 03/18/20 20:00 40 03/18/20 19:19 58 17 40 03/18/20 19:02 61 03/18/20 16:00 40 03/18/20 16:00 70 03/18/20 16:00 Mechanical Ventilator 03/18/20 16:00 97.2 70 23 126/66 (86) 100 03/18/20 15:10 67 23 40 03/18/20 12:00 Mechanical Ventilator 03/18/20 12:00 67 03/18/20 12:00 97.2 73 22 126/62 (83) 100 03/18/20 12:00 40 03/18/20 11:00 73 18 40 03/18/20 08:18 69 115/60 03/18/20 08:00 Mechanical Ventilator 03/18/20 08:00 40 03/18/20 08:00 68 03/18/20 08:00 97.2 64 18 118/48 (71) 99 03/18/20 07:16 64 18 40 03/18/20 04:00 62 03/18/20 04:00 98.6 76 21 113/60 (77) 97 03/18/20 04:00 Mechanical Ventilator 03/18/20 04:00 35 03/18/20 03:13 62 14 40 03/18/20 00:00 Mechanical Ventilator 03/18/20 00:00 74 03/18/20 00:00 70 03/18/20 00:00 100.4 73 22 121/64 (83) 98 Intake and Output 03/17/20 03/18/20 19:00 07:00 Intake Total 770 ml 35 ml Output Total 50 ml 1050 ml Balance 720 ml -1015 ml Intake Free Water 60 ml IV Total 110 ml Tube Feeding 350 ml 35 ml Blood Product 250 ml Output Urine Total 50 ml 1050 ml # Bowel Movements 2 Laboratory Tests 03/18/20 02:26: POC Whole Blood Glucose 80 03/18/20 03:55: White Blood Count 5.3, Red Blood Count 2.37L, Hemoglobin 6.8*L, Hematocrit 20.5L , Mean Corpuscular Volume 87, Mean Corpuscular Hemoglobin 28.5, Mean Corpuscular Hemoglobin Concent 33.0, Red Cell Distribution Width 14.4, Platelet Count 80L, Mean Platelet Volume 8.3, Neutrophils (%) (Auto) , Lymphocytes (%) (Auto) , Monocytes (%) (Auto) , Eosinophils (%) (Auto) , Basophils (%) (Auto) , Differential Total Cells Counted 100, Neutrophils % (Manual) 78H, Lymphocytes % (Manual) 15L, Monocytes % (Manual) 7, Eosinophils % (Manual) 0, Basophils % (Manual) 0, Band Neutrophils 0, Platelet Estimate DecreasedL, Platelet Morphology Normal, Hypochromasia 1+, Prothrombin Time 15.1H, Prothromb Time International Ratio 1.4H, Sodium Level 129L, Potassium Level 3.6, Chloride Level 94L, Carbon Dioxide Level 25, Anion Gap 10, Blood Urea Nitrogen 90H, Creatinine 2.6H, Estimat Glomerular Filtration Rate 19.7, Glucose Level 78, Calcium Level 5.6*L, Phosphorus Level 3.3, Magnesium Level 1.8, Total Bilirubin 0.4, Aspartate Amino Transf (AST/SGOT) 33, Alanine Aminotransferase (ALT/SGPT) 19, Alkaline Phosphatase 81, Total Protein 4.5L, Albumin 1.3L, Globulin 3.2, Albumin/Globulin Ratio 0.4L 03/18/20 06:40: POC Whole Blood Glucose 72L 03/18/20 09:38: POC Whole Blood Glucose 104 03/18/20 12:16: POC Whole Blood Glucose 82 03/18/20 17:51: POC Whole Blood Glucose 76 Height (Feet): 5 Height (Inches): 3.00 Weight (Pounds): 128 General Appearance: alert, lethargic EENT: normal ENT inspection Neck: normal alignment Cardiovascular: normal rate, regular rhythm, regularly irregular Respiratory/Chest: chest wall non-tender, normal breath sounds, no accessory muscle use, decreased breath sounds Extremities: non-tender Neurologic: alert, responsive, depressed affect Assessment/Plan Status Narrative Patient is somnolent easily arousable to the level of awake vital signs are stable there is no bradycardiachycardia yesterday patient was again tearful therefore was successfully attributed to pain with Dilaudid 0.5 mg IV push every 4 hours as needed basis and facial expression change MiraLAX from clinical point review patient could have been discharged since yesterday however patient is on a waiting list to get into thoracic surgery unit who also operated on aortogram dissecting aneurysm Basil laboratory tests will be done in a.m. is a Lucas Paul MD, MD Mar 18, 2020 23:38
[2020-03-19] VITALS: BP 111/57
[2020-03-19] MEDS: Sucralfate 1gm tab GT SCH ×4 (01:15→17:08)
[2020-03-19] MEDS: Renvela 800mg Pkt GT SCH ×3 (01:15→17:08)
--- NOTE | 2020-03-19 03:00 | NUR ---
NURSE NOTES: Patient asleep. tolerating vent settings well. Will continue to monitor.
[2020-03-19] MEDS: Hydromorphone 0.5mg/0.5ml inj IVP PRN ×2 (03:39→16:30)
[2020-03-19 04:00] VITALS: BP 114/56
[2020-03-19 05:12] LABS: HEMATOCRIT 26.6 % (37.0-47.0); HEMOGLOBIN 9.2 G/DL (12.0-16.0); MEAN CORPUSCULAR VOLUME 85 FL (80-99); PLATELET COUNT 78 K/UL (150-450); RED BLOOD COUNT 3.12 M/UL (4.20-5.40); RED CELL DISTRIBUTION WIDTH 13.4 % (11.6-14.8); WHITE BLOOD COUNT 4.5 K/UL (4.8-10.8)
[2020-03-19 05:35] LABS: ALBUMIN 1.2 G/DL (3.4-5.0); ALBUMIN/GLOBULIN RATIO 0.4 (1.0-2.7); BILIRUBIN,TOTAL 0.4 MG/DL (0.2-1.0); CREATININE 2.8 MG/DL (0.55-1.30); POTASSIUM 3.6 MMOL/L (3.5-5.1)
[2020-03-19 05:43] LABS: PHOSPHORUS 4.1 MG/DL (2.5-4.9)
[2020-03-19] MEDS: Midodrine 10mg tab GT SCH ×3 (06:00→21:46)
--- NOTE | 2020-03-19 06:00 | NUR ---
NURSE NOTES: Patient noted with pain during shift. Non-pharmacological interventions ineffective. PRN pain medication provided and noted effective post administration. Will continue to monitor.
[2020-03-19] MEDS: Metoclopramide 10mg/2ml Inj IVP SCH ×3 (06:12→21:46)
--- NOTE | 2020-03-19 06:32 | Hematology/Onc Progress Note ---
Assessment/Plan Assessment/Plan # Leukocytosis, now with likely bacteremia, as per ID care --> Cxr: : Large left abiola consolidation/effusion --> wbc 30-->40-->27->30->29-->35->32-->28-->21->10.2-->6.6 --> ABX angelo/vanc-->tobra/edson/vanc-->dapto/ceftazadine --> smear reviewed --> ID recs are noted # Anemia of chronic disease due to underlying chronic medical issues, multifactorial --> Anemia workup has been reviewed, cw acd --> No evidence of hemolysis is noted, peripheral smear has been reviewed. --> Hgb goal >7. Transfuse prn. --> Epogen required in prior --> Medications have been reviewed --> low threshold for gi evaluation in case has occult + --> hgb 1.9-->5-->7.1-->8.8-->8.1->7.5-> 8.2-->6.8-->9.2 --> 1 unit prbc10/17, 2 units /, 03/02, 2/3 --> gi eval as needed # Elevated tumor markers, cea and ca 19.9 --> reviewed prior 01/27/20 cat scan a/p --> no masses noted, hold off further extensive w/u # Thrombocytopenia likely reactive v medication indcued --> plt 200-->129->91-->86->100->78 --> transfuse as needed --> r/o dic --> anticoag as needed # Coagulopathy with inr 1.5 --> consider vit k/ffp as needed preprocedure --> labs noted # Aortic dissection as seen on Ct ==> when stable, consider transfer hloc # JAVIER initially >2 --> on ivfs --> per renal # Elevated d-dimer, likely infection related --> venous duplex prior neg --> in prior neg # Dysphagia s/p peg --> as per gi # Thoracic aortic dissection --> s/p repair early 2017 # Chronic Resp failure -> s/p trach/vent # Psychiatric history on ativan/haldol # [place] resident # Dvt ppx --> scds The timing of this note does not necessarily reflect the time of the patient was seen. Greatly appreciate consultation. Subjective HEENT: Denies: no symptoms, eye pain, blurred vision, tearing, double vision, ear pain, ear discharge, nose pain, nose congestion, throat pain, throat swelling, mouth pain, mouth swelling, other Cardiovascular: Denies: no symptoms, chest pain, edema, irregular heart rate, lightheadedness, palpitations, syncope, other Respiratory: Denies: no symptoms, cough, shortness of breath, SOB with excertion, SOB at rest, sputum, wheezing, other Gastrointestinal/Abdominal: Denies: no symptoms, abdomen distended, abdominal pain, black stools, tarry stools, blood in stool, constipated, diarrhea, difficulty swallowing, nausea, poor appetite, poor fluid intake, rectal bleeding, vomiting, other Neurologic/Psychiatric: Denies: no symptoms, anxiety, depressed, emotional problems, headache, numbness, paresthesia, pre-existing deficit, seizure, tingling, tremors, weakness, other Endocrine: Denies: no symptoms, excessive sweating, flushing, intolerance to cold, intolerance to heat, increased hunger, increased thirst, increased urine, unexplained weight gain, unexplained weight loss, other Allergies: Coded Allergies: No Known Allergies (Unverified , 10/10/17) Subjective 03/04 for 1 unit transfusion this am as hgb remains low, wbc better 03/05 egd was done did show large nonbleeding gastric ulcer, high tumor markers 03/06 nv, with davis overnight, bp remains stable, with occult + stool, roman Rn 03/09 nv, remains stable, on vanc/tobra/edson, meds reviewed, no bleeding 03/10 nv, on vent, no bleeding, receiving abx, no night sweats 03/11 nv, roman surgeon and pcp, with aortic dissection to transfer [facility] when stable 03/12 nv, labs reviewed, wbc 21, hgb 7.5, otherwise is comfortable 03/13 nv, labs noted, no bleeding, wbc 13, hgb improved, meds reviewed 03/15 nv, meds reviewed, labs noted, no bleeding, on vent 03/16 nv/tv, peg, meds noted, hgb remains stable, improved to 10 2/ s/p egd, with gastric ulceration noted, hgb stable 2/3 labs noted, hgb 6.8, to get 1 unit prbc, meds reviewed 03/19 hgb 9.2, plt 78, no hemoptysis, is comfortable Objective Objective Current Medications Medications (Trade) Dose Ordered Sig/Penny Route PRN Reason Start Time Stop Time Status Last Admin Dose Admin Acetaminophen (Tylenol) 650 mg Q6H PRN GT Mild Pain (Pain Scale 1-3) 03/02/20 22:30 04/01/20 22:29 03/18/20 11:14 Acetaminophen (Tylenol) 650 mg Q6H PRN GT Temp >100.5 03/03/20 03:00 04/01/20 22:29 Aspirin (ASA) 81 mg DAILY GT 03/07/20 09:00 04/21/20 08:59 03/18/20 08:17 Carvedilol (Coreg) 6.25 mg EVERY 12 HOURS GT 03/14/20 21:00 04/13/20 20:59 03/18/20 21:06 Ceftazidime/ Avibactam 0.94 gm/ Dextrose 110 ml @ 110 mls/hr Q12HR IV 03/06/20 13:00 03/21/20 22:00 03/18/20 21:05 Chlorhexidine Gluconate (Ling-Hex 2%) 1 applic DAILY@2000 TOPIC 03/03/20 20:00 06/01/20 19:59 03/18/20 20:00 Daptomycin 500 mg/ Sodium Chloride 50 ml @ 100 mls/hr Q48H IV 03/10/20 13:00 03/21/20 23:59 03/18/20 13:21 Dextrose (Dextrose 50%) 25 ml Q30M PRN IV Hypoglycemia 03/15/20 07:30 06/13/20 07:29 Dextrose (Dextrose 50%) 50 ml Q30M PRN IV Hypoglycemia 03/15/20 07:30 06/13/20 07:29 Hydralazine HCl (Apresoline) 25 mg Q6H PRN GT For High Blood Pressure 03/02/20 22:00 05/31/20 21:59 Hydromorphone HCl (Dilaudid) 0.5 mg Q4H PRN IVP For Pain 03/18/20 18:30 03/25/20 18:29 2/4/21 03:39 Loperamide HCl (Imodium) 2 mg Q6H PRN GT Diarrhea 03/06/20 12:45 04/05/20 12:44 03/06/20 13:01 Metoclopramide HCl (Reglan) 5 mg Q8HR IVP 03/04/20 11:45 04/03/20 11:44 03/19/20 06:12 Midodrine (Pro-Amatine) 10 mg EVERY 8 HOURS GT 03/17/20 22:00 06/01/20 12:59 03/18/20 06:14 Pantoprazole (Protonix) 40 mg EVERY 12 HOURS IVP 03/04/20 21:00 04/02/20 20:59 03/18/20 21:05 Polyethylene Glycol (Miralax) 17 gm BEDTIME PRN GT Constipation 03/02/20 22:00 04/01/20 21:59 Sevelamer Carbonate (Renvela) 1,600 mg Q6HR GT 03/17/20 18:00 06/08/20 11:59 03/19/20 01:15 Sodium Hypochlorite (Dakin's Quarter Strength) 1 applic DAILY TOPIC 03/04/20 09:00 04/03/20 08:59 03/18/20 08:19 Sucralfate (Carafate) 1 gm EVERY 6 HOURS GT 03/17/20 18:00 06/09/20 08:59 03/19/20 06:11 Last 24 Hour Vital Signs Date Time Temp Pulse Resp B/P (MAP) Pulse Ox O2 Delivery O2 Flow Rate FiO2 03/19/20 04:09 97.5 03/19/20 04:00 97.7 64 23 114/56 (75) 100 03/19/20 04:00 40 03/19/20 04:00 60 03/19/20 04:00 Mechanical Ventilator 03/19/20 03:30 66 20 40 03/19/20 01:00 60 16 40 03/19/20 00:00 Mechanical Ventilator 03/19/20 00:00 57 03/19/20 00:00 97.5 59 23 111/57 (75) 100 03/18/20 21:37 97.0 03/18/20 21:06 66 121/69 03/18/20 20:00 Mechanical Ventilator 03/18/20 20:00 97.0 66 23 121/69 (86) 100 03/18/20 20:00 40 03/18/20 19:19 58 17 40 03/18/20 19:02 61 03/18/20 16:00 40 03/18/20 16:00 70 03/18/20 16:00 Mechanical Ventilator 03/18/20 16:00 97.2 70 23 126/66 (86) 100 03/18/20 15:10 67 23 40 03/18/20 12:00 Mechanical Ventilator 03/18/20 12:00 67 03/18/20 12:00 97.2 73 22 126/62 (83) 100 03/18/20 12:00 40 03/18/20 11:00 73 18 40 03/18/20 08:18 69 115/60 03/18/20 08:00 Mechanical Ventilator 03/18/20 08:00 40 03/18/20 08:00 68 03/18/20 08:00 97.2 64 18 118/48 (71) 99 03/18/20 07:16 64 18 40 03/18/20 04:00 62 03/18/20 04:00 98.6 76 21 113/60 (77) 97 03/18/20 04:00 Mechanical Ventilator 03/18/20 04:00 35 03/18/20 03:13 62 14 40 03/18/20 00:00 Mechanical Ventilator 03/18/20 00:00 74 03/18/20 00:00 70 03/18/20 00:00 100.4 73 22 121/64 (83) 98 03/17/20 23:10 75 20 40 03/17/20 21:45 77 134/61 03/17/20 20:55 100 03/17/20 20:54 40 03/17/20 20:00 100.6 77 28 134/61 (85) 97 03/17/20 20:00 Mechanical Ventilator 03/17/20 19:43 81 03/17/20 19:09 74 31 40 03/17/20 16:00 97.7 72 26 136/67 (90) 99 03/17/20 16:00 Mechanical Ventilator 03/17/20 16:00 40 03/17/20 15:48 66 03/17/20 15:10 70 25 40 03/17/20 13:25 60 20 40 03/17/20 12:00 40 03/17/20 12:00 Mechanical Ventilator 03/17/20 12:00 97.2 60 16 111/56 (74) 98 03/17/20 11:51 66 03/17/20 11:10 62 19 40 03/17/20 08:52 56 110/49 03/17/20 08:00 55 03/17/20 08:00 40 03/17/20 08:00 96.4 62 16 118/49 (72) 94 03/17/20 08:00 Mechanical Ventilator 03/17/20 07:10 60 25 40 Intake and Output 03/18/20 03/19/20 19:00 07:00 Intake Total 630 ml 450 ml Output Total 40 ml Balance 590 ml 450 ml Intake Free Water 120 ml 100 ml IV Total 160 ml Tube Feeding 350 ml 350 ml Output Urine Total 40 ml Labs Test 03/16/20 13:47 03/16/20 18:23 03/16/20 23:45 03/17/20 03:30 POC Whole Blood Glucose 86 MG/DL (74-106) 73 MG/DL (74-106) White Blood Count 6.6 K/UL (4.8-10.8) Red Blood Count 2.52 M/UL (4.20-5.40) Hemoglobin 7.5 G/DL (12.0-16.0) Hematocrit 22.2 % (37.0-47.0) Mean Corpuscular Volume 88 FL (80-99) Mean Corpuscular Hemoglobin 29.6 PG (27.0-31.0) Mean Corpuscular Hemoglobin Concent 33.6 G/DL (32.0-36.0) Red Cell Distribution Width 14.4 % (11.6-14.8) Platelet Count 100 K/UL (150-450) Mean Platelet Volume 9.7 FL (6.5-10.1) Neutrophils (%) (Auto) % (45.0-75.0) Lymphocytes (%) (Auto) % (20.0-45.0) Monocytes (%) (Auto) % (1.0-10.0) Eosinophils (%) (Auto) % (0.0-3.0) Basophils (%) (Auto) % (0.0-2.0) Test 03/17/20 06:08 03/17/20 07:50 03/17/20 11:32 03/17/20 17:18 POC Whole Blood Glucose 83 MG/DL (74-106) 89 MG/DL (74-106) 93 MG/DL (74-106) White Blood Count 6.8 K/UL (4.8-10.8) Red Blood Count 2.41 M/UL (4.20-5.40) Hemoglobin 7.2 G/DL (12.0-16.0) Hematocrit 21.1 % (37.0-47.0) Mean Corpuscular Volume 87 FL (80-99) Mean Corpuscular Hemoglobin 30.0 PG (27.0-31.0) Mean Corpuscular Hemoglobin Concent 34.4 G/DL (32.0-36.0) Red Cell Distribution Width 14.2 % (11.6-14.8) Platelet Count 90 K/UL (150-450) Mean Platelet Volume 10.5 FL (6.5-10.1) Neutrophils (%) (Auto) % (45.0-75.0) Lymphocytes (%) (Auto) % (20.0-45.0) Monocytes (%) (Auto) % (1.0-10.0) Eosinophils (%) (Auto) % (0.0-3.0) Basophils (%) (Auto) % (0.0-2.0) Differential Total Cells Counted 100 Neutrophils % (Manual) 79 % (45-75) Lymphocytes % (Manual) 15 % (20-45) Monocytes % (Manual) 5 % (1-10) Eosinophils % (Manual) 1 % (0-3) Basophils % (Manual) 0 % (0-2) Band Neutrophils 0 % (0-8) Platelet Estimate Decreased Platelet Morphology Normal Hypochromasia 1+ Anisocytosis 1+ Test 03/18/20 02:26 03/18/20 03:55 03/18/20 06:40 03/18/20 09:38 POC Whole Blood Glucose 80 MG/DL (74-106) 72 MG/DL (74-106) 104 MG/DL (74-106) White Blood Count 5.3 K/UL (4.8-10.8) Red Blood Count 2.37 M/UL (4.20-5.40) Hemoglobin 6.8 G/DL (12.0-16.0) Hematocrit 20.5 % (37.0-47.0) Mean Corpuscular Volume 87 FL (80-99) Mean Corpuscular Hemoglobin 28.5 PG (27.0-31.0) Mean Corpuscular Hemoglobin Concent 33.0 G/DL (32.0-36.0) Red Cell Distribution Width 14.4 % (11.6-14.8) Platelet Count 80 K/UL (150-450) Mean Platelet Volume 8.3 FL (6.5-10.1) Neutrophils (%) (Auto) % (45.0-75.0) Lymphocytes (%) (Auto) % (20.0-45.0) Monocytes (%) (Auto) % (1.0-10.0) Eosinophils (%) (Auto) % (0.0-3.0) Basophils (%) (Auto) % (0.0-2.0) Differential Total Cells Counted 100 Neutrophils % (Manual) 78 % (45-75) Lymphocytes % (Manual) 15 % (20-45) Monocytes % (Manual) 7 % (1-10) Eosinophils % (Manual) 0 % (0-3) Basophils % (Manual) 0 % (0-2) Band Neutrophils 0 % (0-8) Platelet Estimate Decreased Platelet Morphology Normal Hypochromasia 1+ Prothrombin Time 15.1 SEC (9.30-11.50) Prothromb Time International Ratio 1.4 (0.9-1.1) Sodium Level 129 MMOL/L (136-145) Potassium Level 3.6 MMOL/L (3.5-5.1) Chloride Level 94 MMOL/L (98-107) Carbon Dioxide Level 25 MMOL/L (21-32) Anion Gap 10 mmol/L (5-15) Blood Urea Nitrogen 90 mg/dL (7-18) Creatinine 2.6 MG/DL (0.55-1.30) Estimat Glomerular Filtration Rate 19.7 mL/min (>60) Glucose Level 78 MG/DL (74-106) Calcium Level 5.6 MG/DL (8.5-10.1) Phosphorus Level 3.3 MG/DL (2.5-4.9) Magnesium Level 1.8 MG/DL (1.8-2.4) Total Bilirubin 0.4 MG/DL (0.2-1.0) Aspartate Amino Transf (AST/SGOT) 33 U/L (15-37) Alanine Aminotransferase (ALT/SGPT) 19 U/L (12-78) Alkaline Phosphatase 81 U/L (46-116) Total Protein 4.5 G/DL (6.4-8.2) Albumin 1.3 G/DL (3.4-5.0) Globulin 3.2 g/dL Albumin/Globulin Ratio 0.4 (1.0-2.7) Test 03/18/20 12:16 03/18/20 17:51 03/18/20 23:52 03/19/20 04:00 POC Whole Blood Glucose 82 MG/DL (74-106) 76 MG/DL (74-106) 71 MG/DL (74-106) White Blood Count 4.5 K/UL (4.8-10.8) Red Blood Count 3.12 M/UL (4.20-5.40) Hemoglobin 9.2 G/DL (12.0-16.0) Hematocrit 26.6 % (37.0-47.0) Mean Corpuscular Volume 85 FL (80-99) Mean Corpuscular Hemoglobin 29.6 PG (27.0-31.0) Mean Corpuscular Hemoglobin Concent 34.8 G/DL (32.0-36.0) Red Cell Distribution Width 13.4 % (11.6-14.8) Platelet Count 78 K/UL (150-450) Mean Platelet Volume 10.2 FL (6.5-10.1) Neutrophils (%) (Auto) % (45.0-75.0) Lymphocytes (%) (Auto) % (20.0-45.0) Monocytes (%) (Auto) % (1.0-10.0) Eosinophils (%) (Auto) % (0.0-3.0) Basophils (%) (Auto) % (0.0-2.0) Sodium Level 125 MMOL/L (136-145) Potassium Level 3.6 MMOL/L (3.5-5.1) Chloride Level 91 MMOL/L (98-107) Carbon Dioxide Level 20 MMOL/L (21-32) Anion Gap 14 mmol/L (5-15) Blood Urea Nitrogen 97 mg/dL (7-18) Creatinine 2.8 MG/DL (0.55-1.30) Estimat Glomerular Filtration Rate 18.1 mL/min (>60) Glucose Level 96 MG/DL (74-106) Uric Acid 5.2 MG/DL (2.6-7.2) Calcium Level 6.0 MG/DL (8.5-10.1) Phosphorus Level 4.1 MG/DL (2.5-4.9) Magnesium Level 1.9 MG/DL (1.8-2.4) Total Bilirubin 0.4 MG/DL (0.2-1.0) Aspartate Amino Transf (AST/SGOT) 35 U/L (15-37) Alanine Aminotransferase (ALT/SGPT) 19 U/L (12-78) Alkaline Phosphatase 82 U/L (46-116) C-Reactive Protein, Quantitative 11.7 mg/dL (0.00-0.90) Pro-B-Type Natriuretic Peptide > 72809 pg/mL (0-125) Total Protein 4.6 G/DL (6.4-8.2) Albumin 1.2 G/DL (3.4-5.0) Globulin 3.4 g/dL Albumin/Globulin Ratio 0.4 (1.0-2.7) Test 03/19/20 05:37 POC Whole Blood Glucose 102 MG/DL (74-106) Height (Feet): 5 Height (Inches): 3.00 Weight (Pounds): 128 Objective Physical Exam: Vitals: reviewed General: NAD HEENT: nc, at Neck: supple ++trach/vent Chest: clear breath sounds bilaterally Cardiovascular: RRR, no s3, s4 Abdomen: soft, nontender, nd +gtube Extremities: no cce, normal range of motion Neuro: alert Evan Muhammad MD Mar 19, 2020 06:32
--- NOTE | 2020-03-19 07:15 | NUR ---
NURSE HAND-OFF REPORT: Important Events on Shift: - Patient Status: Stable Diet: GT Pending Orders: Pending Results/Labs: Pending MD notification: Latest Vital Signs: Temperature 97.5 , Pulse 60 , B/P 114 /56 , Respiratory Rate 23 , O2 SAT 100 , Mechanical Ventilator, O2 Flow Rate . Vital Sign Comment: WNL EKG Rhythm: Sinus Rhythm Rhythm change?: N MD Notified?: N -Dr Екатерина HATFIELD Response: No New Orders Received Latest [place] Fall Score: 50 Fall Risk: High Risk Safety Measures: Call light Within Reach, Bed Alarm Zone 2, Side Rails Side Rails x2, Bed position Low and Locked. Fall Precautions: Yellow Socks Report given to ERASMO Roman.
--- NOTE | 2020-03-19 07:33 | NUR ---
NURSE NOTES: LATE ENTRY: RECEIVED REPORT FROM SHERIDAN. PT IN BED. HOB 30. A/OX1. OPENS EYES TO STIMULI. NON VERBAL. PUPILS 3MM SLUGGISH. SENSATION IN TACT. SR ON MONITOR. BP AZFEOW11.4, 66, 17, 115/57, 99%. TRACH TO VENT SHILEY 7. VENT SETTINGS: AC 14, VT 500, FI02 40%, PEEP 5. SECRETIONS DRAINING FROM ORAL CAVITY, WHITE. MODERATE. TRACH DRESSING INTACT. GT PATENT. CONNECTED TO FEEDING NEPRO AT 35ML/HR. NO RESIDUAL NOTED. BOWEL SOUNDS ACTIVE. ABDOMEN ROUND, LARGE. NO BM AT THIS TIME. OLIGURIC DIAZ IN PLACE. WILL ASK MD REGARDING REMOVAL. NO OUTPUT NOTED. RT UPPER CHEST PERMA CATH, NOTED. SKIN- WOUNDS NOTED ON ASSESSMENT. IV ACCESS RT HAND AND LT FA 22G. PATENT. BILATERAL RADIAL PULSES WEAK. PT CONTRACTED UPPER AND LOWER EXTREMITIES. CONTACT ISOLATION IN PLACE. BED LOCKED, IN LOW POSITION. SIDE RAIL X3. WILL CONTINUE TO MONITOR.
[2020-03-19 08:00] VITALS: BP 115/57
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
--- NOTE | 2020-03-19 08:43 | NUR ---
RD ASSESSMENT & RECOMMENDATIONS SEE CARE ACTIVITY FOR COMPLETE ASSESSMENT DAILY ESTIMATED NEEDS: Needs based on Critical care, wound, renal dysfunction 59.5 kg 27-22 kcals/kg 4731-4304 total kcals W/ HD (1.5-2.0) g protein/kg 89-119 g total protein Fluid per MD NUTRITION DIAGNOSIS: * Swallowing difficulty R/T dysphagia, respiratory status as evidenced by vent dep via trach, GT Dep. * Increase kcal and pro needs r/t wound healing, renal dysfunction as evidenced by h/o stage 4 sacral wound, and HD. CURRENT TF: Nepro @ 35ml/hr x 24 hrs ENTERAL NUTRITION RECOMMENDATIONS: Nepro @40ml/hr x 24 hrs + Prosource 1pkt BID to provide 960ml, 1728kcal, 78g+22g prot, 779ml free water * Maintain goal of 40ml/hr. * Add Prosource 1pkt BID to better meet increased protein needs (additional 11g prot/each) * Water flush per MD/ HOB over 30 degrees ADDITIONAL RECOMMENDATIONS: * Maintain calibrated bed scale: 58kg-> 68kg now * Monitor for HD continuity * WC eval-> w/ TF orders add FRANKLIN in 4oz H2O BID via GT Vit C per nephrology, Nephrovite 1 tab daily. * Monitor BGs closely for hypoglycemia- D10 now dc'ed. On Bedside BG checks .
[2020-03-19] MEDS: Aspirin Baby 81mg GT SCH (08:44)
--- NOTE | 2020-03-19 08:48 | Infectious Diseases Prog Note ---
Assessment/Plan 49yo F with: MDR Kleb pna bacteremia AMS Anemia to 1.9 on admission 03/02 Leukocytosis to 40, improving GPC bacteremia UTI Pneumonia c/b mod-large R pleural effusion and small L pleural effusion - compressive atelectasis Hypotension 03/02 BCx 1/2 +Staph epi, 12 +Staph haemolyticus (m/l skin colonizers) UA+, UCx >100k P.stuartii (S-angelo) & CRE P.mirablis (R-polyB/colistin, S- tobramycin, per [facility] is "intrinsically resistant to Avycaz/Zerbaxa" not clear why to me and they are unable to elaborate more) COVID rapid neg, PCR neg CXR: Tracheostomy again demonstrated. Interim placement of a right jugular tunneled dialysis catheter. There is infiltrate and volume loss in the left lung, particularly in the perihilar region, suprahilar region, and base. Consolidation at the lung base is similar. The perihilar and suprahilar region consolidation is new. The right lung pleural space are clear. C.dif neg 03/03 BCx NTD 03/06 BCx 2/2 +MDR Kleb pna (arnett-R, including R-polyB, colistin), 02/14 +E.faecium VRE (R-amp, S-linezolid) 03/08 BCx NTD 03/09 CT CAP: Very limited exam, as described, due to massive anasarca. This could limit visualization of the discrete fluid collection such as an abscess. Extensive thoracoabdominal aortic dissection, as described above. Current flap begins just distal to the left subclavian artery origin; per report, there is history of surgical repair so there may have been surgical repair of the ascending thoracic aorta. Bilateral pleural effusions, slightly smaller than on earlier exams. Extensive atelectasis as a result. Extensive pulmonary par enchymal disease as detailed above. This may reflect pneumonia or pulmonary edema or both. Evidence of pulmonary arterial hypertension, with dilatation of the pulmonary artery. Considerable ascites fluid. 03/11 Chest US: Small right, trace left pleural effusions, insufficient for safe thoracentesis AF Sepsis Leukocytosis Hypoxia on vent Pneumonia c/b L pleural effusion (recurrent, prior determined to be transudative) - s/p thora 01/21, 1050cc removed Volume overload, BNP >35,0000, likely 2/2 progressive CKD --> ESRD ?Pancreatitis, Lipase >2000 Acute anemia to 5s CONS bacteremia, ?contaminant Aflutter w/ RVR 01/13 BCx 2/2 +S. epi COVID PCR neg Flu neg CXR: Large left pleural effusion. Bilateral interstitial and airspace infiltrates versus edema MRSA nares neg 01/16 BCx NTD 01/17 BCx /2 +Staph auricularis (skin colonizer) 01/18 Resp cx +MDR CRE PsA (S-gent, I-colistin, R-polyB) (Intermediate to Zerbaxa, Resistant to Avycaz) 01/18 C.dif neg 01/18 CXR: Similar opacification of the left hemithorax likely representing combination of pleural effusion with atelectasis versus pneumonia/edema. Decreased but persistent hazy opacity throughout the right lung may represent edema versus infectious/inflammatory process. 01/20 BCx NTD 01/21 L thora 1050 cc removed, cx NTD 01/25 Wound cx from Gtube site +CRE Kleb pna (arnett-R) and MDR PsA (colonizers) 01/26 CT A/P: Limited exam, due to severe diffuse anasarca. Ascites. Bilateral pleural effusions. Basilar pulmonary atelectatic changes and consolidation. Gastrostomy. Atrophic left kidney with a nephroureteral stents again demonstrated. Possible retrococcygeal decubitus changes. Correlate with clinical findings, consider MRI if there is concern for sacral osteomyelitis. Right hip intertrochanteric fracture, also previously demonstrated. Left femoral dialysis catheter. Nonspecific right lobe liver lesion is unchanged, not well- demonstrated. ctasia bordering on aneurysmal dilatation and possible chronic dissection of the distal thoracic aorta, also previously described. JAVIER on CKD On previous admission Sep-Oct 2019 required HD for short period Going to start HD this admission again R/o COVID 01/14 COVID PCR neg 12/29 neg at [facility] per report H/o UTI 10/15 u/a wbc 30-40, nit neg, leuk +3; ucx ESBL P. mirablis, ESBL M. morganii //20 u/a wbc tnct, nit neg, leuk +3; ucx >100k MDR P. stuarti (S Ceftriaxone, Meropenem) 8/25 u/a wbc tnct, nit neg, leuk ; ucx >100k VRE 10/15/19 u/a wbc tnct; ucx >100k ESBL P. stuarti (S ertapenem, aztreonam) H/o transudative pleural effusion 11/28 Sp Thora (w: 169, PMN: 2%, L: 49% , LDH: 57, prot 2.5); cx Neg H/o PNA 10/15/19 Resp cx ESBL P. mirabilis, MDR P.a. (S only to Gent) 09/22 Resp cx + MDR PsA (S-gent; I-colistin; R-levofloxacin, Zosyn, angelo) 09/16/19 Sp cx ESBL P. mirablis H/o PPM site (pocket) infection and pocket abscess 2ry to S. epi-11/2018, sp >6weeks IV vancomycin 11/27 SP ABBIE: no evidence for vegetation on any of the valves 11/26/18 SP PPM removal: OR findings:The fibrous capsule enclosing the generator was then opened and there was a oxblh-uh-edkvyiqi amount of yellowish fluid drainage. The generator was then removed.Atrial and ventricular leads were detached. The necrotic tissue of the pocket was then removed and the pocket was flushed with an antibiotic solution. Capsule, wound tissue and lead tip cx: Neg 2d echo: no vegetation seen US chest: 4.6 x 3.4 x 0.9 cm hypoechoic/anechoic area overlying left chest pacemaker power pack. This could represent either a discrete fluid collection or a focal area of very edematous tissue. Infected fluid pocket also possible. 11/18 Bcx 3/4 S. epi; 11/20 Bcx neg; 11/24 Bcx Neg; 11/27 Bcx Neg CAD s/p CABG GERD/gastritis Afib HTN Dysphagia sp GT Aortic dissection s/p repair 2017 S/p PPM Parkinson's Disease Schizophrenia Anxiety COPD Chronic resp failure s/p trach Hx of tracheal bleeding [place] resident ([facility]) VRE and MRSA colonized Plan: Cont daptomycin #10 given transient VRE bacteremia, sepsis - will need 14 day course from neg BCx 03/08, end date 03/21 CK on 03/13 = 173 (decreasing), next check 03/20 (ordered) Cont Avycaz #14 given MDR Kleb pna bacteremia - will need 14 day course from neg BCx 03/08, end date 03/21 Appreciate Surgery input on thoracic aortic aneurysm noted on CT imaging - d/w Dr. Saavedra Pt needs emergent transfer out to [facility] for CT surgery evaluation, primary MD aware Given somewhat transient MDR Kleb pna bacteremia (was not on admission BCx and cleared rapidly after positive BCx), no current indication to remove Permacath as less likely 2/2 line infection and more likely 2/2 gut translocation in setting of GIB, though if leukocytosis persists despite appropriate abx, then will have to reconsider. F/u 03/06 BCx +MDR Kleb pna - need sensi to Avycaz/Zerbaxa (d/w lab, will perform) Trend Hg, GIB Trend BP, WBC 03/16 SP tobramycin IV #10 for resistant UTI 03/10/20 SP edson #4 empiric, vanco #9 01/31 SP angelo/inh tobra #10 for pna 01/23 SP vanco IV #10 given CONS/GPC bacteremia 01/16 SP Zosyn #2 01/14 SP dex 10mg in ED 12/10 SP IV Gentamycin #10 12/07 SP Meropenem #10 12/01 SP IV Vancomycin #5 11/28 Sp Cefepime #2 and IV Gentamycin x1 Monitor CBC/CMP Monitor temp curve, hemodynamics Monitor resp status D/w RN Thank you for this consult. [facility] will continue to follow. Subjective Allergies: Coded Allergies: No Known Allergies (Unverified , 10/10/17) AF NAD on vent S/p 2.3L paracentesis yesterday WBC 4.5 Objective Last 24 Hour Vital Signs Date Time Temp Pulse Resp B/P (MAP) Pulse Ox O2 Delivery O2 Flow Rate FiO2 03/19/20 08:00 40 03/19/20 08:00 96.4 64 17 115/57 (76) 99 03/19/20 06:50 60 16 40 03/19/20 04:09 97.5 03/19/20 04:00 97.7 64 23 114/56 (75) 100 03/19/20 04:00 40 03/19/20 04:00 60 03/19/20 04:00 Mechanical Ventilator 03/19/20 03:30 66 20 40 03/19/20 01:00 60 16 40 03/19/20 00:00 Mechanical Ventilator 03/19/20 00:00 57 03/19/20 00:00 97.5 59 23 111/57 (75) 100 03/18/20 21:37 97.0 03/18/20 21:06 66 121/69 03/18/20 20:00 Mechanical Ventilator 03/18/20 20:00 97.0 66 23 121/69 (86) 100 03/18/20 20:00 40 03/18/20 19:19 58 17 40 03/18/20 19:02 61 03/18/20 16:00 40 03/18/20 16:00 70 03/18/20 16:00 Mechanical Ventilator 03/18/20 16:00 97.2 70 23 126/66 (86) 100 03/18/20 15:10 67 23 40 03/18/20 12:00 Mechanical Ventilator 03/18/20 12:00 67 03/18/20 12:00 97.2 73 22 126/62 (83) 100 03/18/20 12:00 40 03/18/20 11:00 73 18 40 Height (Feet): 5 Height (Inches): 3.00 Weight (Pounds): 128 Gen: NAD HEENT: NCAT, trach Pulm: BL chest rise on vent Abd: Soft, NTND, +PEG Ext: No c/c/e Skin: No visible rashes Neuro: Awake, minimally interactive Lines: R chest Permacath dressing c/d/i Laboratory Tests Test 03/18/20 09:38 03/18/20 12:16 03/18/20 17:51 03/18/20 23:52 POC Whole Blood Glucose 104 MG/DL (74-106) 82 MG/DL (74-106) 76 MG/DL (74-106) 71 MG/DL (74-106) L Test 03/19/20 04:00 03/19/20 05:37 White Blood Count 4.5 K/UL (4.8-10.8) L Red Blood Count 3.12 M/UL (4.20-5.40) L Hemoglobin 9.2 G/DL (12.0-16.0) #L Hematocrit 26.6 % (37.0-47.0) L Mean Corpuscular Volume 85 FL (80-99) Mean Corpuscular Hemoglobin 29.6 PG (27.0-31.0) Mean Corpuscular Hemoglobin Concent 34.8 G/DL (32.0-36.0) Red Cell Distribution Width 13.4 % (11.6-14.8) Platelet Count 78 K/UL (150-450) L Mean Platelet Volume 10.2 FL (6.5-10.1) H Neutrophils (%) (Auto) % (45.0-75.0) Lymphocytes (%) (Auto) % (20.0-45.0) Monocytes (%) (Auto) % (1.0-10.0) Eosinophils (%) (Auto) % (0.0-3.0) Basophils (%) (Auto) % (0.0-2.0) Sodium Level 125 MMOL/L (136-145) L Potassium Level 3.6 MMOL/L (3.5-5.1) Chloride Level 91 MMOL/L (98-107) L Carbon Dioxide Level 20 MMOL/L (21-32) L Anion Gap 14 mmol/L (5-15) Blood Urea Nitrogen 97 mg/dL (7-18) H Creatinine 2.8 MG/DL (0.55-1.30) H Estimat Glomerular Filtration Rate 18.1 mL/min (>60) Glucose Level 96 MG/DL (74-106) Uric Acid 5.2 MG/DL (2.6-7.2) Calcium Level 6.0 MG/DL (8.5-10.1) L Phosphorus Level 4.1 MG/DL (2.5-4.9) Magnesium Level 1.9 MG/DL (1.8-2.4) Total Bilirubin 0.4 MG/DL (0.2-1.0) Aspartate Amino Transf (AST/SGOT) 35 U/L (15-37) Alanine Aminotransferase (ALT/SGPT) 19 U/L (12-78) Alkaline Phosphatase 82 U/L (46-116) C-Reactive Protein, Quantitative 11.7 mg/dL (0.00-0.90) H Pro-B-Type Natriuretic Peptide > 94524 pg/mL (0-125) H Total Protein 4.6 G/DL (6.4-8.2) L Albumin 1.2 G/DL (3.4-5.0) L Globulin 3.4 g/dL Albumin/Globulin Ratio 0.4 (1.0-2.7) L POC Whole Blood Glucose 102 MG/DL (74-106) Current Medications Medications (Trade) Dose Ordered Sig/Penny Route PRN Reason Start Time Stop Time Status Last Admin Dose Admin Acetaminophen (Tylenol) 650 mg Q6H PRN GT Mild Pain (Pain Scale 1-3) 03/02/20 22:30 04/01/20 22:29 03/18/20 11:14 Acetaminophen (Tylenol) 650 mg Q6H PRN GT Temp >100.5 03/03/20 03:00 04/01/20 22:29 Aspirin (ASA) 81 mg DAILY GT 03/07/20 09:00 04/21/20 08:59 03/18/20 08:17 Carvedilol (Coreg) 6.25 mg EVERY 12 HOURS GT 03/14/20 21:00 04/13/20 20:59 03/18/20 21:06 Ceftazidime/ Avibactam 0.94 gm/ Dextrose 110 ml @ 110 mls/hr Q12HR IV 03/06/20 13:00 03/21/20 22:00 03/18/20 21:05 Chlorhexidine Gluconate (Ling-Hex 2%) 1 applic DAILY@2000 TOPIC 03/03/20 20:00 06/01/20 19:59 03/18/20 20:00 Daptomycin 500 mg/ Sodium Chloride 50 ml @ 100 mls/hr Q48H IV 03/10/20 13:00 03/21/20 23:59 03/18/20 13:21 Dextrose (Dextrose 50%) 25 ml Q30M PRN IV Hypoglycemia 03/15/20 07:30 06/13/20 07:29 Dextrose (Dextrose 50%) 50 ml Q30M PRN IV Hypoglycemia 03/15/20 07:30 06/13/20 07:29 Hydralazine HCl (Apresoline) 25 mg Q6H PRN GT For High Blood Pressure 03/02/20 22:00 05/31/20 21:59 Hydromorphone HCl (Dilaudid) 0.5 mg Q4H PRN IVP For Pain 03/18/20 18:30 03/25/20 18:29 03/19/20 03:39 Loperamide HCl (Imodium) 2 mg Q6H PRN GT Diarrhea 03/06/20 12:45 04/05/20 12:44 03/06/20 13:01 Metoclopramide HCl (Reglan) 5 mg Q8HR IVP 03/04/20 11:45 04/03/20 11:44 03/19/20 06:12 Midodrine (Pro-Amatine) 10 mg EVERY 8 HOURS GT 03/17/20 22:00 06/01/20 12:59 03/18/20 06:14 Pantoprazole (Protonix) 40 mg EVERY 12 HOURS IVP 03/04/20 21:00 04/02/20 20:59 03/18/20 21:05 Polyethylene Glycol (Miralax) 17 gm BEDTIME PRN GT Constipation 03/02/20 22:00 04/01/20 21:59 Sevelamer Carbonate (Renvela) 1,600 mg Q6HR GT 03/19/20 12:00 06/17/20 11:59 Sevelamer Carbonate (Renvela) 1,600 mg Q6HR ORAL 03/19/20 07:05 03/19/20 09:00 03/19/20 08:43 Sodium Hypochlorite (Dakin's Quarter Strength) 1 applic DAILY TOPIC 03/04/20 09:00 04/03/20 08:59 03/18/20 08:19 Sucralfate (Carafate) 1 gm EVERY 6 HOURS GT 03/17/20 18:00 06/09/20 08:59 03/19/20 06:11 Tramadol HCl (Ultram) 50 mg EVERY 8 HOURS GT 03/19/20 14:00 03/26/20 13:59 Ro Pack M.D.b 4, 2021 08:48
[2020-03-19] MEDS: CEFTAZIDIME IV SCH ×2 (08:54→21:34)
[2020-03-19] MEDS: D5W IV SCH ×2 (08:54→21:34)
[2020-03-19] MEDS: AVIBACTAM IV SCH ×2 (08:54→21:34)
[2020-03-19] MEDS: Pantoprazole Inj IVP SCH ×2 (08:54→20:49)
[2020-03-19] MEDS: Dakin's 0.125% Soln (Quarter Strength) 16oz TOPIC SCH (08:55)
[2020-03-19] MEDS: Carvedilol 6.25mg Tab GT SCH ×2 (08:56→20:49)
--- NOTE | 2020-03-19 09:31 | NUR ---
CASE MANAGEMENT:REVIEW 03/19/20 SI: SEPSIS. AC/CHR RENAL FAILURE. TRACH.VENT.GT THORACIC/ABDOMINAL AORTIC DISSECTION. ANEMIA..S/P 13 U PRBC'S 96.4 64 17 115/57 99% ON VENT SUPPORT W/40% FIO2 H/H-9.2/26.6 PLT-78 NA-125 BUN+97 CR+2.8 BNP>[id number] IS: IV DAPTOMYCIN Q48HRS IV CEFTAZIDIME Q12 IVF@50/HR ASA GT QD IV PROTONIX Q12 IV REGLAN Q8HR COREG GT Q12 CARAFATE GT QID MIDODRINE GT Q8HR : STEP DOWN UNIT DCP: FROM [employer] [employer] PL[employer]: MONITOR H/H AND PLT ~ S/P 1 UNIT FFP AND 13 UNITS PRBC'S
--- NOTE | 2020-03-19 09:54 | Pulmonology Progress Note ---
Subjective ROS Limited/Unobtainable: Yes Interval Events: s/p paracentesis, 2.3L out; s/p 2 uniuts PRBC; due for dialysis today HEENT: Repors: no symptoms Respiratory: Reports: no symptoms Cardiovascular: Reports: no symptoms Gastrointestinal/Abdominal: Reports: diarrhea Allergies: Coded Allergies: No Known Allergies (Unverified , 10/10/17) All Systems: reviewed and negative except above Objective Last 24 Hour Vital Signs Date Time Temp Pulse Resp B/P (MAP) Pulse Ox O2 Delivery O2 Flow Rate FiO2 03/19/20 08:56 66 115/57 03/19/20 08:00 40 03/19/20 08:00 96.4 64 17 115/57 (76) 99 03/19/20 07:43 64 03/19/20 06:50 60 16 40 03/19/20 04:09 97.5 03/19/20 04:00 97.7 64 23 114/56 (75) 100 03/19/20 04:00 40 03/19/20 04:00 60 03/19/20 04:00 Mechanical Ventilator 03/19/20 03:30 66 20 40 03/19/20 01:00 60 16 40 03/19/20 00:00 Mechanical Ventilator 03/19/20 00:00 57 03/19/20 00:00 97.5 59 23 111/57 (75) 100 03/18/20 21:37 97.0 03/18/20 21:06 66 121/69 03/18/20 20:00 Mechanical Ventilator 03/18/20 20:00 97.0 66 23 121/69 (86) 100 03/18/20 20:00 40 03/18/20 19:19 58 17 40 03/18/20 19:02 61 03/18/20 16:00 40 03/18/20 16:00 70 03/18/20 16:00 Mechanical Ventilator 03/18/20 16:00 97.2 70 23 126/66 (86) 100 03/18/20 15:10 67 23 40 03/18/20 12:00 Mechanical Ventilator 03/18/20 12:00 67 03/18/20 12:00 97.2 73 22 126/62 (83) 100 03/18/20 12:00 40 03/18/20 11:00 73 18 40 Intake and Output 03/18/20 03/19/20 19:00 07:00 Intake Total 630 ml 535 ml Output Total 40 ml 100 ml Balance 590 ml 435 ml Intake Free Water 120 ml 150 ml IV Total 160 ml Tube Feeding 350 ml 385 ml Output Urine Total 40 ml 100 ml General Appearance: no acute distress HEENT: atraumatic Respiratory: lungs clear Cardiovascular: normal rate, regular rhythm Extremities: other - edema bilateral Laboratory Tests 03/18/20 12:16: POC Whole Blood Glucose 82 03/18/20 17:51: POC Whole Blood Glucose 76 03/18/20 23:52: POC Whole Blood Glucose 71L 03/19/20 04:00: White Blood Count 4.5L, Red Blood Count 3.12L, Hemoglobin 9.2#L, Hematocrit 26.6L, Mean Corpuscular Volume 85, Mean Corpuscular Hemoglobin 29.6, Mean Corpuscular Hemoglobin Concent 34.8, Red Cell Distribution Width 13.4, Platelet Count 78L, Mean Platelet Volume 10.2H, Neutrophils (%) (Auto) , Lymphocytes (%) (Auto) , Monocytes (%) (Auto) , Eosinophils (%) (Auto) , Basophils (%) (Auto) , Sodium Level 125L, Potassium Level 3.6, Chloride Level 91L, Carbon Dioxide Level 20L, Anion Gap 14, Blood Urea Nitrogen 97H, Creatinine 2.8H, Estimat Glomerular Filtration Rate 18.1, Glucose Level 96, Uric Acid 5.2, Calcium Level 6.0L, Phosphorus Level 4.1, Magnesium Level 1.9, Total Bilirubin 0.4, Aspartate Amino Transf (AST/SGOT) 35, Alanine Aminotransferase (ALT/SGPT) 19, Alkaline Phosphatase 82, C-Reactive Protein, Quantitative 11.7H, Pro-B-Type Natriuretic Peptide > 45524V, Total Protein 4.6L, Albumin 1.2L, Globulin 3.4, Albumin/Globul in Ratio 0.4L 03/19/20 05:37: POC Whole Blood Glucose 102 Current Medications Medications (Trade) Dose Ordered Sig/Penny Route PRN Reason Start Time Stop Time Status Last Admin Dose Admin Acetaminophen (Tylenol) 650 mg Q6H PRN GT Mild Pain (Pain Scale 1-3) 03/02/20 22:30 04/01/20 22:29 03/18/20 11:14 Acetaminophen (Tylenol) 650 mg Q6H PRN GT Temp >100.5 03/03/20 03:00 04/01/20 22:29 Aspirin (ASA) 81 mg DAILY GT 03/07/20 09:00 04/21/20 08:59 03/18/20 08:17 Carvedilol (Coreg) 6.25 mg EVERY 12 HOURS GT 03/14/20 21:00 04/13/20 20:59 03/19/20 08:56 Ceftazidime/ Avibactam 0.94 gm/ Dextrose 110 ml @ 110 mls/hr Q12HR IV 03/06/20 13:00 03/21/20 22:00 03/19/20 08:54 Chlorhexidine Gluconate (Ling-Hex 2%) 1 applic DAILY@2000 TOPIC 03/03/20 20:00 06/01/20 19:59 03/18/20 20:00 Daptomycin 500 mg/ Sodium Chloride 50 ml @ 100 mls/hr Q48H IV 03/10/20 13:00 03/21/20 23:59 03/18/20 13:21 Dextrose (Dextrose 50%) 25 ml Q30M PRN IV Hypoglycemia 03/15/20 07:30 06/13/20 07:29 Dextrose (Dextrose 50%) 50 ml Q30M PRN IV Hypoglycemia 03/15/20 07:30 06/13/20 07:29 Hydralazine HCl (Apresoline) 25 mg Q6H PRN GT For High Blood Pressure 03/02/20 22:00 05/31/20 21:59 Hydromorphone HCl (Dilaudid) 0.5 mg Q4H PRN IVP For Pain 03/18/20 18:30 03/25/20 18:29 03/19/20 03:39 Loperamide HCl (Imodium) 2 mg Q6H PRN GT Diarrhea 03/06/20 12:45 04/05/20 12:44 03/06/20 13:01 Metoclopramide HCl (Reglan) 5 mg Q8HR IVP 03/04/20 11:45 04/03/20 11:44 03/19/20 06:12 Midodrine (Pro-Amatine) 10 mg EVERY 8 HOURS GT 03/17/20 22:00 06/01/20 12:59 03/18/20 06:14 Pantoprazole (Protonix) 40 mg EVERY 12 HOURS IVP 03/04/20 21:00 04/02/20 20:59 03/19/20 08:54 Polyethylene Glycol (Miralax) 17 gm BEDTIME PRN GT Constipation 03/02/20 22:00 04/01/20 21:59 Sevelamer Carbonate (Renvela) 1,600 mg Q6HR GT 03/19/20 12:00 06/17/20 11:59 Sodium Hypochlorite (Dakin's Quarter Strength) 1 applic DAILY TOPIC 03/04/20 09:00 04/03/20 08:59 03/19/20 08:55 Sucralfate (Carafate) 1 gm EVERY 6 HOURS GT 03/17/20 18:00 06/09/20 08:59 03/19/20 06:11 Tramadol HCl (Ultram) 50 mg EVERY 8 HOURS GT 03/19/20 14:00 03/26/20 13:59 Assessment/Plan Assessment/Plan 1. Chronic respiratory failure. - CT chest/abd/pelv: improving pleural effusion 2. Mechanical ventilation. - current setting at AC 14, Vt 500, FiO2 40%, PEEP 5 saturating well - continue current setting - suction secretions as needed 3. Chronic tracheostomy. 4. Chronic G-tube. 5. Anemia. - s/p transfusion - stool OB positive (03/02, 03/03) - off anticoags 6. Renal failure. 7. Leukocytosis and sepsis. - WBC now resolved 8. Sepsis UTI 9. Gram positive cocci bacteremia - f/u BCx negative for growth 10. COVID-19 negative 11. Diarrhea - C. diff neg 12. Hypoglycemia - resolved 13. Bradycardia - no urgent indication for pacemaker per cardio 14. Gastric ulcer - on PPI - GI following 15. Pleural effusion - small; insufficient volume for safe thoracentesis 16. thoracic aortic aneurysm - noted on CT imaging - pt needs emergent transfer out to [facility] for CT surgery evaluation, primary MD aware - Pt might not be a candidate for TAA repair 17. Ascites - s/p paracentesis (03/18), 2.3L out We will follow carefully. ID and Hematology following. The care for this patient was discussed with my supervising physician Time spent for this case was approximately 31 minutes Cruz Wilson Mar 19, 2020 09:54
[2020-03-19 12:00] VITALS: BP 113/58
--- NOTE | 2020-03-19 12:00 | NUR ---
NURSE NOTES: MEDICATIONS GIVEN PER EMAR. PT TEMP 97.5, 65, 20, 113/58, 95%. PT CLEANED AND REPOSITIONED. PT IN NO ACUTE DISTRESS
--- NOTE | 2020-03-19 12:46 | General Progress Note ---
Subjective ROS Limited/Unobtainable: No Allergies: Coded Allergies: No Known Allergies (Unverified , 10/10/17) Objective Last 24 Hour Vital Signs Date Time Temp Pulse Resp B/P (MAP) Pulse Ox O2 Delivery O2 Flow Rate FiO2 03/19/20 11:15 62 14 40 03/19/20 08:56 66 115/57 03/19/20 08:00 40 03/19/20 08:00 96.4 64 17 115/57 (76) 99 03/19/20 08:00 Mechanical Ventilator 03/19/20 07:43 64 03/19/20 06:50 60 16 40 03/19/20 04:09 97.5 03/19/20 04:00 97.7 64 23 114/56 (75) 100 03/19/20 04:00 40 03/19/20 04:00 60 03/19/20 04:00 Mechanical Ventilator 03/19/20 03:30 66 20 40 03/19/20 01:00 60 16 40 03/19/20 00:00 Mechanical Ventilator 03/19/20 00:00 57 03/19/20 00:00 97.5 59 23 111/57 (75) 100 03/18/20 21:37 97.0 03/18/20 21:06 66 121/69 03/18/20 20:00 Mechanical Ventilator 03/18/20 20:00 97.0 66 23 121/69 (86) 100 03/18/20 20:00 40 03/18/20 19:19 58 17 40 03/18/20 19:02 61 03/18/20 16:00 40 03/18/20 16:00 70 03/18/20 16:00 Mechanical Ventilator 03/18/20 16:00 97.2 70 23 126/66 (86) 100 03/18/20 15:10 67 23 40 Intake and Output 03/18/20 03/19/20 19:00 07:00 Intake Total 630 ml 535 ml Output Total 40 ml 100 ml Balance 590 ml 435 ml Intake Free Water 120 ml 150 ml IV Total 160 ml Tube Feeding 350 ml 385 ml Output Urine Total 40 ml 100 ml Laboratory Tests 03/18/20 17:51: POC Whole Blood Glucose 76 03/18/20 23:52: POC Whole Blood Glucose 71L 03/19/20 04:00: White Blood Count 4.5L, Red Blood Count 3.12L, Hemoglobin 9.2#L, Hematocrit 26.6L, Mean Corpuscular Volume 85, Mean Corpuscular Hemoglobin 29.6, Mean Corpuscular Hemoglobin Concent 34.8, Red Cell Distribution Width 13.4, Platelet Count 78L, Mean Platelet Volume 10.2H, Neutrophils (%) (Auto) , Lymphocytes (%) (Auto) , Monocytes (%) (Auto) , Eosinophils (%) (Auto) , Basophils (%) (Auto) , Sodium Level 125L, Potassium Level 3.6, Chloride Level 91L, Carbon Dioxide Level 20L, Anion Gap 14, Blood Urea Nitrogen 97H, Creatinine 2.8H, Estimat Glomerular Filtration Rate 18.1, Glucose Level 96, Uric Acid 5.2, Calcium Level 6.0L, Phosphorus Level 4.1, Magnesium Level 1.9, Total Bilirubin 0.4, Aspartate Amino Transf (AST/SGOT) 35, Alanine Aminotransferase (ALT/SGPT) 19, Alkaline Phosphatase 82, C-Reactive Protein, Quantitative 11.7H, Pro-B-Type Natriuretic Peptide > 55393X, Total Protein 4.6L, Albumin 1.2L, Globulin 3.4, Albumin/Globulin Ratio 0.4L 03/19/20 05:37: POC Whole Blood Glucose 102 Height (Feet): 5 Height (Inches): 3.00 Weight (Pounds): 128 General Appearance: no apparent distress EENT: normal ENT inspection Neck: supple Cardiovascular: normal rate Respiratory/Chest: decreased breath sounds Abdomen: normal bowel sounds, non tender, soft Extremities: non-tender Assessment/Plan Problem List: (1) Hx of CABG ICD Codes: Z95.1 - Presence of aortocoronary bypass graft SNOMED: 521494180, 111587636 (2) History of tracheostomy ICD Codes: Z98.890 - Other specified postprocedural states SNOMED: 134522223, 755965535 (3) PEG (percutaneous endoscopic gastrostomy) status ICD Codes: Z93.1 - Gastrostomy status SNOMED: 554479373, 497200427 (4) Renal failure ICD Codes: N19 - Unspecified kidney failure SNOMED: 51450501, 081355783 (5) Severe anemia ICD Codes: D64.9 - Anemia, unspecified SNOMED: 241933803 Assessment/Plan: s/p EGD gastric ulcer on ppi and carafate fu H&H s/p one unit PRBC 03/11/20, 03/15, 03/18/20 GTF per nurses no melena or hematochezia plan repeat cbc tomorow stool ob Inder Mccauley MD Mar 19, 2020 12:46
--- NOTE | 2020-03-19 13:57 | NUR ---
INSURANCE CLINCALS/REVIEW FAXED TO [facility] T: [phone] F: [phone]
[2020-03-19] MEDS: traMADol 50mg tab GT SCH ×2 (14:00→21:40)
--- NOTE | 2020-03-19 14:14 | NUR ---
NURSE NOTES: LATE ENTRY: A/OX1. NON VERBAL. PUPILS 3MM BRISK SENSATION INTACT. TRACH TO VENT SHILEY 8. VENT SETTINGS: AC 12, VT 500, FI02 30%, PEEP 5. SECRETIONS DRAINING FROM ORAL CAVITY, WHITE. MODERATE. TRACH DRESSING INTACT. GT PATENT, FEEDING VITAL A.F. NO RESIDUAL NOTED. BOWEL SOUNDS ACTIVE. ABDOMEN ROUND, LARGE, TENDER. BIV ACCESS RIJ TLC, PATENT. BILATERAL RADIAL PULSES WEAK. PT CONTRACTED UPPER AND LOWER EXTREMITIES. CONTACT ISOLATION IN PLACE. BED LOCKED, IN LOW POSITION. SIDE RAIL X3. WILL CONTINUE TO MONITOR.
[2020-03-19] MEDS ORDERED: Tubing IV Blood Pump IV ONE (14:15)
[2020-03-19] MEDS ORDERED: NS 275ml ONE (14:15)
--- NOTE | 2020-03-19 15:19 | NUR ---
NURSE NOTES: Received report form Jessie DRAWER LINER. Pt is lying in bed awake, not in distress. Vital signs stable. Tolerating vent setting of AC 14, TV 500, FiO2 40%, PEEP 5. Norman catheter on draining yellowish urine. G tube is intact and patent running Nepro @ 35cc/hr. Bed is locked and in lowest position, bed alarm on. Will continue to monitor pt. Will continue with the plan of care.
--- NOTE | 2020-03-19 15:45 | NUR ---
NURSE NOTES: Dr. Houston notified abnormal electrolytes today,patient will start dialysis soon,no new orders
[2020-03-19 16:00] VITALS: BP 150/73
--- NOTE | 2020-03-19 16:50 | NUR ---
NURSE NOTES: Hemodialysis is being done. VSS. G-Tube intact. Oral care and suctioning done. Will continue to monitor pt.
--- NOTE | 2020-03-19 19:10 | NUR ---
NURSE HAND-OFF REPORT: Important Events on Shift:Dialysis done Patient Status: Full code Diet: Nepro @ 35cc/hr Pending Orders: N Pending Results/Labs:N Pending MD notification:N Latest Vital Signs: Temperature 97.2 , Pulse 80 , B/P 150 /73 , Respiratory Rate 26 , O2 SAT 94 , Mechanical Ventilator, O2 Flow Rate . Vital Sign Comment: stable EKG Rhythm: Sinus Rhythm Rhythm change?: N MD Notified?: N -Dr Екатерина HATFIELD Response: No New Orders Received Latest [place] Fall Score: 50 Fall Risk: High Risk Safety Measures: Call light Within Reach, Bed Alarm Zone 2, Side Rails Side Rails x3, Bed position Low and Locked. Fall Precautions: Yellow Socks Report given to ERASMO Sen.
--- NOTE | 2020-03-19 19:30 | NUR ---
NURSE NOTES: Received report & pt from Shaniqua Poon RN. Pt calm in bed, a&ox0, non-verbal, able to open eyes, on GT feeding with Nepro 35cc/hr. Pt is trach vented saurating 95%. Norman intact & draining output to gravity. Per report last HD ([facility]) 2/ with 2L out. Right upper chest permacath intact. LFA 22g intact & S/L'd. OB stool needed. Bed in lowest position, call light within reach. Will continue to monitor.
--- NOTE | 2020-03-19 19:36 | General Progress Note ---
Subjective Constitutional: Reports: no symptoms HEENT: Reports: no symptoms Cardiovascular: Reports: no symptoms Respiratory: Reports: no symptoms Gastrointestinal/Abdominal: Reports: no symptoms Genitourinary: Reports: no symptoms Neurologic/Psychiatric: Reports: anxiety, depressed Endocrine: Reports: no symptoms Hematologic/Lymphatic: Reports: no symptoms Allergies: Coded Allergies: No Known Allergies (Unverified , 10/10/17) Objective Last 24 Hour Vital Signs Date Time Temp Pulse Resp B/P (MAP) Pulse Ox O2 Delivery O2 Flow Rate FiO2 03/19/20 16:00 Mechanical Ventilator 03/19/20 16:00 97.2 93 26 150/73 (98) 94 03/19/20 16:00 40 03/19/20 16:00 80 03/19/20 14:50 80 23 40 03/19/20 12:00 97.5 65 20 113/58 (76) 95 03/19/20 12:00 Mechanical Ventilator 03/19/20 12:00 63 03/19/20 12:00 40 03/19/20 11:15 62 14 40 03/19/20 08:56 66 115/57 03/19/20 08:00 40 03/19/20 08:00 96.4 64 17 115/57 (76) 99 03/19/20 08:00 Mechanical Ventilator 03/19/20 07:43 64 03/19/20 06:50 60 16 40 03/19/20 04:09 97.5 03/19/20 04:00 97.7 64 23 114/56 (75) 100 03/19/20 04:00 40 03/19/20 04:00 60 03/19/20 04:00 Mechanical Ventilator 03/19/20 03:30 66 20 40 03/19/20 01:00 60 16 40 03/19/20 00:00 Mechanical Ventilator 03/19/20 00:00 57 03/19/20 00:00 97.5 59 23 111/57 (75) 100 03/18/20 21:37 97.0 03/18/20 21:06 66 121/69 03/18/20 20:00 Mechanical Ventilator 03/18/20 20:00 97.0 66 23 121/69 (86) 100 03/18/20 20:00 40 Intake and Output 03/18/20 03/19/20 19:00 07:00 Intake Total 630 ml 535 ml Output Total 40 ml 100 ml Balance 590 ml 435 ml Intake Free Water 120 ml 150 ml IV Total 160 ml Tube Feeding 350 ml 385 ml Output Urine Total 40 ml 100 ml Laboratory Tests 03/18/20 23:52: POC Whole Blood Glucose 71L 03/19/20 04:00: White Blood Count 4.5L, Red Blood Count 3.12L, Hemoglobin 9.2#L, Hematocrit 26.6L, Mean Corpuscular Volume 85, Mean Corpuscular Hemoglobin 29.6, Mean Corpuscular Hemoglobin Concent 34.8, Red Cell Distribution Width 13.4, Platelet Count 78L, Mean Platelet Volume 10.2H, Neutrophils (%) (Auto) , Lymphocytes (%) (Auto) , Monocytes (%) (Auto) , Eosinophils (%) (Auto) , Basophils (%) (Auto) , Sodium Level 125L, Potassium Level 3.6, Chloride Level 91L, Carbon Dioxide Level 20L, Anion Gap 14, Blood Urea Nitrogen 97H, Creatinine 2.8H, Estimat Glomerular Filtration Rate 18.1, Glucose Level 96, Uric Acid 5.2, Calcium Level 6.0L, Phosphorus Level 4.1, Magnesium Level 1.9, Total Bilirubin 0.4, Aspartate Amino Transf (AST/SGOT) 35, Alanine Aminotransferase (ALT/SGPT) 19, Alkaline Phosphatase 82, C-Reactive Protein, Quantitative 11.7H, Pro-B-Type Natriuretic Peptide > 17311L, Total Protein 4.6L, Albumin 1.2L, Globulin 3.4, Albumin/Globulin Ratio 0.4L 03/19/20 05:37: POC Whole Blood Glucose 102 03/19/20 13:26: POC Whole Blood Glucose 98 03/19/20 18:08: POC Whole Blood Glucose 78 Height (Feet): 5 Height (Inches): 3.00 Weight (Pounds): 128 General Appearance: WD/WN, lethargic EENT: normal ENT inspection Neck: supple Cardiovascular: normal rate, regular rhythm, no gallop/murmur, no JVD Respiratory/Chest: no respiratory distress, no accessory muscle use, decreased breath sounds, rhonchi - bilaterally Abdomen: normal bowel sounds, non tender, soft, no organomegaly, no mass Edema: 2+ Leg (L), 2+ Leg (R) Neurologic: oriented x 3, responsive Assessment/Plan Status Narrative Over the last 24 hours patient underwent paracentesis and transfusion of 2 unit packed RBCs her pain syndrome increase and she requires a daily administration of Dilaudid drug that she was off for 2 months after discussion with the patient she does not really does not want to go to any cardiovascular unit I will talk to her again about the risk of not going to cardiovascular unit in a.m. she continued to do to be on daptomycin and ceftazidime IV Bactrim with good clinical results fluid paracentesis after 24 hours did not grow any organism she is now on tramadol 50 mg 3 times daily on a regular basis and Dilaudid 0.5 mg every 4 hours as needed on a as needed basis repeat laboratory tests will be done in a.. Lucas Vera MD, MD Mar 19, 2020 19:36
[2020-03-19 20:00] VITALS: BP 135/64
[2020-03-19] MEDS: Dyna-Hex 2% Top Sol 2oz TOPIC SCH (20:49)
--- NOTE | 2020-03-19 21:30 | NUR ---
NURSE NOTES: Pt's 2100 meds passed. No acute events noted. Secretion noted in pt's mouth. Pt orally suctioned. Pt saturating 98-99% O2. VSS.
--- NOTE | 2020-03-19 23:30 | NUR ---
NURSE NOTES: Pt blood sugar assessed, noted to be 89. No change in condition.
[2020-03-20] VITALS: BP 165/75
[2020-03-20] MEDS: Sucralfate 1gm tab GT SCH ×4 (00:01→18:45)
[2020-03-20] MEDS: Renvela 800mg Pkt GT SCH ×4 (00:01→18:45)
--- NOTE | 2020-03-20 01:30 | NUR ---
NURSE NOTES: Pt sleeping. In no acute distress.
--- NOTE | 2020-03-20 03:30 | NUR ---
NURSE NOTES: Pt repositioned. Vital signs WNL.
[2020-03-20 04:00] VITALS: BP 148/78
[2020-03-20 04:43] LABS: HEMATOCRIT 27.6 % (37.0-47.0); HEMOGLOBIN 9.2 G/DL (12.0-16.0); MEAN CORPUSCULAR VOLUME 87 FL (80-99); PLATELET COUNT 86 K/UL (150-450); RED BLOOD COUNT 3.16 M/UL (4.20-5.40); RED CELL DISTRIBUTION WIDTH 14.6 % (11.6-14.8)
[2020-03-20 05:11] LABS: ALANINE AMINOTRANSFERASE 20 U/L (12-78); ALBUMIN 1.3 G/DL (3.4-5.0); ALBUMIN/GLOBULIN RATIO 0.4 (1.0-2.7); ALKALINE PHOSPHATASE 92 U/L (46-116); ANION GAP 10 mmol/L (5-15); ASPARTATE AMINO TRANSFERASE 35 U/L (15-37); BILIRUBIN,TOTAL 0.5 MG/DL (0.2-1.0); BLOOD UREA NITROGEN 77 mg/dL (7-18); CALCIUM 6.6 MG/DL (8.5-10.1); CARBON DIOXIDE 26 MMOL/L (21-32); CHLORIDE 97 MMOL/L (98-107); CREATINE KINASE 216 U/L (26-308); CREATININE 2.2 MG/DL (0.55-1.30); POTASSIUM 3.8 MMOL/L (3.5-5.1); SODIUM 133 MMOL/L (136-145)
[2020-03-20 05:16] LABS: PHOSPHORUS 2.7 MG/DL (2.5-4.9)
[2020-03-20] MEDS: Midodrine 10mg tab GT SCH ×3 (05:29→21:19)
[2020-03-20] MEDS: Metoclopramide 10mg/2ml Inj IVP SCH ×3 (05:29→21:21)
[2020-03-20] MEDS: traMADol 50mg tab GT SCH ×3 (05:30→21:20)
--- NOTE | 2020-03-20 05:30 | NUR ---
NURSE NOTES: Passed pt's AM meds. No changes noted.
--- NOTE | 2020-03-20 06:36 | Hematology/Onc Progress Note ---
Assessment/Plan Assessment/Plan # Leukocytosis, now with likely bacteremia, as per ID care --> Cxr: : Large left abiola consolidation/effusion --> wbc 30-->40-->27->30->29-->35->32-->28-->21->10.2-->6.6 --> ABX angelo/vanc-->tobra/edson/vanc-->dapto/ceftazadine --> smear reviewed --> ID recs are noted # Anemia of chronic disease due to underlying chronic medical issues, multifactorial --> Anemia workup has been reviewed, cw acd --> No evidence of hemolysis is noted, peripheral smear has been reviewed. --> Hgb goal >7. Transfuse prn. --> Epogen required in prior --> Medications have been reviewed --> low threshold for gi evaluation in case has occult + --> hgb 1.9-->5-->7.1-->8.8-->8.1->7.5-> 8.2-->6.8-->9.2 --> 1 unit prbc10/17, 2 units /, 03/02, 2/3 --> gi eval as needed # Elevated tumor markers, cea and ca 19.9 --> reviewed prior 01/27/20 cat scan a/p --> no masses noted, hold off further extensive w/u # Thrombocytopenia likely reactive v medication induced --> plt 200-->129->91-->86->100->78-->86 --> transfuse as needed --> r/o dic, has been ruled out --> anticoag as needed # Coagulopathy with inr 1.5 --> consider vit k/ffp as needed preprocedure --> labs noted # Aortic dissection as seen on Ct ==> when stable, consider transfer hloc # JAVIER initially >2 --> on ivfs --> per renal # Elevated d-dimer, likely infection related --> venous duplex prior neg --> in prior neg # Dysphagia s/p peg --> as per gi # Thoracic aortic dissection --> s/p repair early 2017 # Chronic Resp failure -> s/p trach/vent # Psychiatric history on ativan/haldol # MD resident # Dvt ppx --> scds The timing of this note does not necessarily reflect the time of the patient was seen. Greatly appreciate consultation. Subjective Constitutional: Denies: no symptoms, chills, fever, malaise, weakness, other HEENT: Denies: no symptoms, eye pain, blurred vision, tearing, double vision, ear pain, ear discharge, nose pain, nose congestion, throat pain, throat swelling, mouth pain, mouth swelling, other Cardiovascular: Denies: no symptoms, chest pain, edema, irregular heart rate, lightheadedness, palpitations, syncope, other Genitourinary: Denies: no symptoms, burning, discharge, frequency, flank pain, hematuria, incontinence, pain, urgency, other Neurologic/Psychiatric: Denies: no symptoms, anxiety, depressed, emotional problems, headache, numbness, paresthesia, pre-existing deficit, seizure, tingling, tremors, weakness, other Hematologic/Lymphatic: Denies: no symptoms, anemia, easy bleeding, easy bruising, adenopathy, other Allergies: Coded Allergies: No Known Allergies (Unverified , 10/10/17) Subjective 03/04 for 1 unit transfusion this am as hgb remains low, wbc better 03/05 egd was done did show large nonbleeding gastric ulcer, high tumor markers 03/06 nv, with davis overnight, bp remains stable, with occult + stool, roman Rn 03/09 nv, remains stable, on vanc/tobra/edson, meds reviewed, no bleeding 03/10 nv, on vent, no bleeding, receiving abx, no night sweats 03/11 nv, roman surgeon and pcp, with aortic dissection to transfer [facility] when stable 03/12 nv, labs reviewed, wbc 21, hgb 7.5, otherwise is comfortable 03/13 nv, labs noted, no bleeding, wbc 13, hgb improved, meds reviewed 03/15 nv, meds reviewed, labs noted, no bleeding, on vent 03/16 nv/tv, peg, meds noted, hgb remains stable, improved to 10 2/2 s/p egd, with gastric ulceration noted, hgb stable / labs noted, hgb 6.8, to get 1 unit prbc, meds reviewed 03/19 hgb 9.2, plt 78, no hemoptysis, is comfortable 2/5 labs reviewed, meds noted, no bleeding, dw rn Objective Objective Current Medications Medications (Trade) Dose Ordered Sig/Penny Route PRN Reason Start Time Stop Time Status Last Admin Dose Admin Acetaminophen (Tylenol) 650 mg Q6H PRN GT Mild Pain (Pain Scale 1-3) 03/02/20 22:30 04/01/20 22:29 03/18/20 11:14 Acetaminophen (Tylenol) 650 mg Q6H PRN GT Temp >100.5 03/03/20 03:00 04/01/20 22:29 Aspirin (ASA) 81 mg DAILY GT 03/07/20 09:00 04/21/20 08:59 03/18/20 08:17 Carvedilol (Coreg) 6.25 mg EVERY 12 HOURS GT 03/14/20 21:00 04/13/20 20:59 03/19/20 20:49 Ceftazidime/ Avibactam 0.94 gm/ Dextrose 110 ml @ 110 mls/hr Q12HR IV 03/06/20 13:00 03/21/20 22:00 03/19/20 21:34 Chlorhexidine Gluconate (Ling-Hex 2%) 1 applic DAILY@2000 TOPIC 03/03/20 20:00 06/01/20 19:59 03/19/20 20:49 Daptomycin 500 mg/ Sodium Chloride 50 ml @ 100 mls/hr Q48H IV 03/10/20 13:00 03/21/20 23:59 03/18/20 13:21 Dextrose (Dextrose 50%) 25 ml Q30M PRN IV Hypoglycemia 03/15/20 07:30 06/13/20 07:29 Dextrose (Dextrose 50%) 50 ml Q30M PRN IV Hypoglycemia 03/15/20 07:30 06/13/20 07:29 Hydralazine HCl (Apresoline) 25 mg Q6H PRN GT For High Blood Pressure 03/02/20 22:00 05/31/20 21:59 Hydromorphone HCl (Dilaudid) 0.5 mg Q4H PRN IVP For Pain 03/18/20 18:30 03/25/20 18:29 03/19/20 16:30 Loperamide HCl (Imodium) 2 mg Q6H PRN GT Diarrhea 03/06/20 12:45 04/05/20 12:44 03/06/20 13:01 Metoclopramide HCl (Reglan) 5 mg Q8HR IVP 03/04/20 11:45 04/03/20 11:44 03/20/20 05:29 Midodrine (Pro-Amatine) 10 mg EVERY 8 HOURS GT 03/17/20 22:00 06/01/20 12:59 03/20/20 05:29 Pantoprazole (Protonix) 40 mg EVERY 12 HOURS IVP 03/04/20 21:00 04/02/20 20:59 03/19/20 20:49 Polyethylene Glycol (Miralax) 17 gm BEDTIME PRN GT Constipation 03/02/20 22:00 04/01/20 21:59 Sevelamer Carbonate (Renvela) 1,600 mg Q6HR GT 03/19/20 12:00 06/17/20 11:59 03/20/20 05:31 Sodium Hypochlorite (Dakin's Quarter Strength) 1 applic DAILY TOPIC 03/04/20 09:00 04/03/20 08:59 03/19/20 08:55 Sucralfate (Carafate) 1 gm EVERY 6 HOURS GT 03/17/20 18:00 06/09/20 08:59 03/20/20 05:29 Tramadol HCl (Ultram) 50 mg EVERY 8 HOURS GT 03/19/20 14:00 03/26/20 13:59 03/20/20 05:30 Last 24 Hour Vital Signs Date Time Temp Pulse Resp B/P (MAP) Pulse Ox O2 Delivery O2 Flow Rate FiO2 03/20/20 04:00 76 03/20/20 04:00 98.2 81 20 148/78 (101) 99 03/20/20 04:00 40 03/20/20 04:00 Mechanical Ventilator 03/20/20 03:30 77 19 40 03/20/20 00:00 97.7 78 18 165/75 (105) 98 03/20/20 00:00 40 03/20/20 00:00 76 03/20/20 00:00 Mechanical Ventilator 03/19/20 23:22 70 15 40 03/19/20 20:49 86 147/81 03/19/20 20:00 70 03/19/20 20:00 97.2 86 20 135/64 (87) 95 03/19/20 20:00 40 03/19/20 20:00 Mechanical Ventilator 03/19/20 19:45 75 23 40 03/19/20 16:00 Mechanical Ventilator 03/19/20 16:00 97.2 93 26 150/73 (98) 94 03/19/20 16:00 40 03/19/20 16:00 80 03/19/20 14:50 80 23 40 03/19/20 12:00 97.5 65 20 113/58 (76) 95 03/19/20 12:00 Mechanical Ventilator 03/19/20 12:00 63 03/19/20 12:00 40 03/19/20 11:15 62 14 40 03/19/20 08:56 66 115/57 03/19/20 08:00 40 03/19/20 08:00 96.4 64 17 115/57 (76) 99 03/19/20 08:00 Mechanical Ventilator 03/19/20 07:43 64 03/19/20 06:50 60 16 40 03/19/20 04:09 97.5 03/19/20 04:00 97.7 64 23 114/56 (75) 100 03/19/20 04:00 40 03/19/20 04:00 60 03/19/20 04:00 Mechanical Ventilator 03/19/20 03:30 66 20 40 03/19/20 01:00 60 16 40 03/19/20 00:00 Mechanical Ventilator 03/19/20 00:00 57 03/19/20 00:00 97.5 59 23 111/57 (75) 100 03/18/20 21:37 97.0 03/18/20 21:06 66 121/69 03/18/20 20:00 Mechanical Ventilator 03/18/20 20:00 97.0 66 23 121/69 (86) 100 03/18/20 20:00 40 03/18/20 19:19 58 17 40 03/18/20 19:02 61 03/18/20 16:00 40 03/18/20 16:00 70 03/18/20 16:00 Mechanical Ventilator 03/18/20 16:00 97.2 70 23 126/66 (86) 100 03/18/20 15:10 67 23 40 03/18/20 12:00 Mechanical Ventilator 03/18/20 12:00 67 03/18/20 12:00 97.2 73 22 126/62 (83) 100 03/18/20 12:00 40 03/18/20 11:00 73 18 40 03/18/20 08:18 69 115/60 03/18/20 08:00 Mechanical Ventilator 03/18/20 08:00 40 03/18/20 08:00 68 03/18/20 08:00 97.2 64 18 118/48 (71) 99 03/18/20 07:16 64 18 40 Intake and Output 03/19/20 03/20/20 19:00 07:00 Intake Total 300 ml 625 ml Output Total 2060 ml 80 ml Balance -1760 ml 545 ml Intake Free Water 50 ml 130 ml IV Total 110 ml 110 ml Tube Feeding 140 ml 385 ml Output Urine Total 60 ml 80 ml Hemodialysis UF 2000 ml # Voids 8 Labs Test 03/17/20 07:50 03/17/20 11:32 03/17/20 17:18 03/18/20 02:26 White Blood Count 6.8 K/UL (4.8-10.8) Red Blood Count 2.41 M/UL (4.20-5.40) Hemoglobin 7.2 G/DL (12.0-16.0) Hematocrit 21.1 % (37.0-47.0) Mean Corpuscular Volume 87 FL (80-99) Mean Corpuscular Hemoglobin 30.0 PG (27.0-31.0) Mean Corpuscular Hemoglobin Concent 34.4 G/DL (32.0-36.0) Red Cell Distribution Width 14.2 % (11.6-14.8) Platelet Count 90 K/UL (150-450) Mean Platelet Volume 10.5 FL (6.5-10.1) Neutrophils (%) (Auto) % (45.0-75.0) Lymphocytes (%) (Auto) % (20.0-45.0) Monocytes (%) (Auto) % (1.0-10.0) Eosinophils (%) (Auto) % (0.0-3.0) Basophils (%) (Auto) % (0.0-2.0) Differential Total Cells Counted 100 Neutrophils % (Manual) 79 % (45-75) Lymphocytes % (Manual) 15 % (20-45) Monocytes % (Manual) 5 % (1-10) Eosinophils % (Manual) 1 % (0-3) Basophils % (Manual) 0 % (0-2) Band Neutrophils 0 % (0-8) Platelet Estimate Decreased Platelet Morphology Normal Hypochromasia 1+ Anisocytosis 1+ POC Whole Blood Glucose 89 MG/DL (74-106) 93 MG/DL (74-106) 80 MG/DL (74-106) Test 03/18/20 03:55 03/18/20 06:40 03/18/20 09:38 03/18/20 12:16 White Blood Count 5.3 K/UL (4.8-10.8) Red Blood Count 2.37 M/UL (4.20-5.40) Hemoglobin 6.8 G/DL (12.0-16.0) Hematocrit 20.5 % (37.0-47.0) Mean Corpuscular Volume 87 FL (80-99) Mean Corpuscular Hemoglobin 28.5 PG (27.0-31.0) Mean Corpuscular Hemoglobin Concent 33.0 G/DL (32.0-36.0) Red Cell Distribution Width 14.4 % (11.6-14.8) Platelet Count 80 K/UL (150-450) Mean Platelet Volume 8.3 FL (6.5-10.1) Neutrophils (%) (Auto) % (45.0-75.0) Lymphocytes (%) (Auto) % (20.0-45.0) Monocytes (%) (Auto) % (1.0-10.0) Eosinophils (%) (Auto) % (0.0-3.0) Basophils (%) (Auto) % (0.0-2.0) Differential Total Cells Counted 100 Neutrophils % (Manual) 78 % (45-75) Lymphocytes % (Manual) 15 % (20-45) Monocytes % (Manual) 7 % (1-10) Eosinophils % (Manual) 0 % (0-3) Basophils % (Manual) 0 % (0-2) Band Neutrophils 0 % (0-8) Platelet Estimate Decreased Platelet Morphology Normal Hypochromasia 1+ Prothrombin Time 15.1 SEC (9.30-11.50) Prothromb Time International Ratio 1.4 (0.9-1.1) Sodium Level 129 MMOL/L (136-145) Potassium Level 3.6 MMOL/L (3.5-5.1) Chloride Level 94 MMOL/L (98-107) Carbon Dioxide Level 25 MMOL/L (21-32) Anion Gap 10 mmol/L (5-15) Blood Urea Nitrogen 90 mg/dL (7-18) Creatinine 2.6 MG/DL (0.55-1.30) Estimat Glomerular Filtration Rate 19.7 mL/min (>60) Glucose Level 78 MG/DL (74-106) Calcium Level 5.6 MG/DL (8.5-10.1) Phosphorus Level 3.3 MG/DL (2.5-4.9) Magnesium Level 1.8 MG/DL (1.8-2.4) Total Bilirubin 0.4 MG/DL (0.2-1.0) Aspartate Amino Transf (AST/SGOT) 33 U/L (15-37) Alanine Aminotransferase (ALT/SGPT) 19 U/L (12-78) Alkaline Phosphatase 81 U/L (46-116) Total Protein 4.5 G/DL (6.4-8.2) Albumin 1.3 G/DL (3.4-5.0) Globulin 3.2 g/dL Albumin/Globulin Ratio 0.4 (1.0-2.7) POC Whole Blood Glucose 72 MG/DL (74-106) 104 MG/DL (74-106) 82 MG/DL (74-106) Test 03/18/20 17:51 03/18/20 23:52 03/19/20 04:00 03/19/20 05:37 POC Whole Blood Glucose 76 MG/DL (74-106) 71 MG/DL (74-106) 102 MG/DL (74-106) White Blood Count 4.5 K/UL (4.8-10.8) Red Blood Count 3.12 M/UL (4.20-5.40) Hemoglobin 9.2 G/DL (12.0-16.0) Hematocrit 26.6 % (37.0-47.0) Mean Corpuscular Volume 85 FL (80-99) Mean Corpuscular Hemoglobin 29.6 PG (27.0-31.0) Mean Corpuscular Hemoglobin Concent 34.8 G/DL (32.0-36.0) Red Cell Distribution Width 13.4 % (11.6-14.8) Platelet Count 78 K/UL (150-450) Mean Platelet Volume 10.2 FL (6.5-10.1) Neutrophils (%) (Auto) % (45.0-75.0) Lymphocytes (%) (Auto) % (20.0-45.0) Monocytes (%) (Auto) % (1.0-10.0) Eosinophils (%) (Auto) % (0.0-3.0) Basophils (%) (Auto) % (0.0-2.0) Sodium Level 125 MMOL/L (136-145) Potassium Level 3.6 MMOL/L (3.5-5.1) Chloride Level 91 MMOL/L (98-107) Carbon Dioxide Level 20 MMOL/L (21-32) Anion Gap 14 mmol/L (5-15) Blood Urea Nitrogen 97 mg/dL (7-18) Creatinine 2.8 MG/DL (0.55-1.30) Estimat Glomerular Filtration Rate 18.1 mL/min (>60) Glucose Level 96 MG/DL (74-106) Uric Acid 5.2 MG/DL (2.6-7.2) Calcium Level 6.0 MG/DL (8.5-10.1) Phosphorus Level 4.1 MG/DL (2.5-4.9) Magnesium Level 1.9 MG/DL (1.8-2.4) Total Bilirubin 0.4 MG/DL (0.2-1.0) Aspartate Amino Transf (AST/SGOT) 35 U/L (15-37) Alanine Aminotransferase (ALT/SGPT) 19 U/L (12-78) Alkaline Phosphatase 82 U/L (46-116) C-Reactive Protein, Quantitative 11.7 mg/dL (0.00-0.90) Pro-B-Type Natriuretic Peptide > 21670 pg/mL (0-125) Total Protein 4.6 G/DL (6.4-8.2) Albumin 1.2 G/DL (3.4-5.0) Globulin 3.4 g/dL Albumin/Globulin Ratio 0.4 (1.0-2.7) Test 03/19/20 13:26 03/19/20 18:08 03/20/20 00:02 03/20/20 04:07 POC Whole Blood Glucose 98 MG/DL (74-106) 78 MG/DL (74-106) 89 MG/DL (74-106) White Blood Count 5.0 K/UL (4.8-10.8) Red Blood Count 3.16 M/UL (4.20-5.40) Hemoglobin 9.2 G/DL (12.0-16.0) Hematocrit 27.6 % (37.0-47.0) Mean Corpuscular Volume 87 FL (80-99) Mean Corpuscular Hemoglobin 29.1 PG (27.0-31.0) Mean Corpuscular Hemoglobin Concent 33.4 G/DL (32.0-36.0) Red Cell Distribution Width 14.6 % (11.6-14.8) Platelet Count 86 K/UL (150-450) Mean Platelet Volume 10.1 FL (6.5-10.1) Neutrophils (%) (Auto) % (45.0-75.0) Lymphocytes (%) (Auto) % (20.0-45.0) Monocytes (%) (Auto) % (1.0-10.0) Eosinophils (%) (Auto) % (0.0-3.0) Basophils (%) (Auto) % (0.0-2.0) Sodium Level 133 MMOL/L (136-145) Potassium Level 3.8 MMOL/L (3.5-5.1) Chloride Level 97 MMOL/L (98-107) Carbon Dioxide Level 26 MMOL/L (21-32) Anion Gap 10 mmol/L (5-15) Blood Urea Nitrogen 77 mg/dL (7-18) Creatinine 2.2 MG/DL (0.55-1.30) Estimat Glomerular Filtration Rate 23.9 mL/min (>60) Glucose Level 84 MG/DL (74-106) Calcium Level 6.6 MG/DL (8.5-10.1) Phosphorus Level 2.7 MG/DL (2.5-4.9) Magnesium Level 1.9 MG/DL (1.8-2.4) Total Bilirubin 0.5 MG/DL (0.2-1.0) Aspartate Amino Transf (AST/SGOT) 35 U/L (15-37) Alanine Aminotransferase (ALT/SGPT) 20 U/L (12-78) Alkaline Phosphatase 92 U/L (46-116) Total Creatine Kinase 216 U/L (26-308) Total Protein 5.0 G/DL (6.4-8.2) Albumin 1.3 G/DL (3.4-5.0) Globulin 3.7 g/dL Albumin/Globulin Ratio 0.4 (1.0-2.7) Test 03/20/20 05:38 POC Whole Blood Glucose 78 MG/DL (74-106) Height (Feet): 5 Height (Inches): 3.00 Weight (Pounds): 128 Objective Physical Exam: Vitals: reviewed General: NAD HEENT: nc, at Neck: supple ++trach/vent Chest: clear breath sounds bilaterally Cardiovascular: RRR, no s3, s4 Abdomen: soft, nontender, nd +gtube Extremities: no cce, normal range of motion Neuro: alert Evan Muhammad MD Mar 20, 2020 06:35
--- NOTE | 2020-03-20 06:58 | NUR ---
NURSE HAND-OFF: Important Events on Shift: none Patient Status: stable Diet: Tube feeding Pending Orders: pending OB stool Pending Results/Labs:none Pending MD notification:none Latest Vital Signs: Temperature 98.2 , Pulse 81 , B/P 148 /78 , Respiratory Rate 20 , O2 SAT 99 , Mechanical Ventilator, O2 Flow Rate . Vital Sign Comment: none Latest Chavarria Fall Score: 50 Fall Risk: High Risk Safety Measures: Call light Within Reach, Bed Alarm Zone 2, Side Rails Side Rails x3, Bed position Low and Locked. Fall Precautions: Yellow Socks Report given to Shaniqua Poon RN.
--- NOTE | 2020-03-20 07:00 | NUR ---
NURSE NOTES: Received report from ERASMO Sen. Pt is lying in bed, awake, a lot of oral secretions, oral suctioning done. Pt is not in distress. VSS, Sinus Rhythm on the quality assurance monitor body. Tolerating vent setting of AC14, TV 500, FiO2 40%, PEEP 5 saturating 94%. GTube is intact and patent running Nepro @ 35cc/hr. Perma catheter in R upper chest intact and patent with no sign of infection and bleeding. Peripheral IV in L forearm is intact and patent. Norman catheter is intact and patent draining yellow urine. Recent labs, medication and MD orders reviewed. Bed is locked and in lowest position, bed alarm on, call light is within reach. Will continue to monitor pt. Will continue with the plan of care.
--- NOTE | 2020-03-20 07:18 | NUR ---
RESPIRATORY NOTE: PT received stable on mechanical ventilation with current settings: AC/VC 14, 500,40%, +5. Airway is midline, secure and patent. Vent circuit is secure and out of the way. Alarms are on and audible. No s/s of respiratory distress noted at this time. Will continue to closely monitor.
--- NOTE | 2020-03-20 07:24 | Infectious Diseases Prog Note ---
Assessment/Plan 49yo F with: MDR Kleb pna bacteremia AMS Anemia to 1.9 on admission 03/02 Leukocytosis to 40, improving GPC bacteremia UTI Pneumonia c/b mod-large R pleural effusion and small L pleural effusion - compressive atelectasis Hypotension 03/02 BCx 1/2 +Staph epi, 12 +Staph haemolyticus (m/l skin colonizers) UA+, UCx >100k P.stuartii (S-angelo) & CRE P.mirablis (R-polyB/colistin, S- tobramycin, per [facility] is "intrinsically resistant to Avycaz/Zerbaxa" not clear why to me and they are unable to elaborate more) COVID rapid neg, PCR neg CXR: Tracheostomy again demonstrated. Interim placement of a right jugular tunneled dialysis catheter. There is infiltrate and volume loss in the left lung, particularly in the perihilar region, suprahilar region, and base. Consolidation at the lung base is similar. The perihilar and suprahilar region consolidation is new. The right lung pleural space are clear. C.dif neg 03/03 BCx NTD 03/06 BCx 2/2 +MDR Kleb pna (arnett-R, including R-polyB, colistin), 02/14 +E.faecium VRE (R-amp, S-linezolid) 03/08 BCx NTD 03/09 CT CAP: Very limited exam, as described, due to massive anasarca. This could limit visualization of the discrete fluid collection such as an abscess. Extensive thoracoabdominal aortic dissection, as described above. Current flap begins just distal to the left subclavian artery origin; per report, there is history of surgical repair so there may have been surgical repair of the ascending thoracic aorta. Bilateral pleural effusions, slightly smaller than on earlier exams. Extensive atelectasis as a result. Extensive pulmonary par enchymal disease as detailed above. This may reflect pneumonia or pulmonary edema or both. Evidence of pulmonary arterial hypertension, with dilatation of the pulmonary artery. Considerable ascites fluid. 03/11 Chest US: Small right, trace left pleural effusions, insufficient for safe thoracentesis AF Sepsis Leukocytosis Hypoxia on vent Pneumonia c/b L pleural effusion (recurrent, prior determined to be transudative) - s/p thora 01/21, 1050cc removed Volume overload, BNP >35,0000, likely 2/2 progressive CKD --> ESRD ?Pancreatitis, Lipase >2000 Acute anemia to 5s CONS bacteremia, ?contaminant Aflutter w/ RVR 01/13 BCx 2/2 +S. epi COVID PCR neg Flu neg CXR: Large left pleural effusion. Bilateral interstitial and airspace infiltrates versus edema MRSA nares neg 01/16 BCx NTD 01/17 BCx /2 +Staph auricularis (skin colonizer) 01/18 Resp cx +MDR CRE PsA (S-gent, I-colistin, R-polyB) (Intermediate to Zerbaxa, Resistant to Avycaz) 01/18 C.dif neg 01/18 CXR: Similar opacification of the left hemithorax likely representing combination of pleural effusion with atelectasis versus pneumonia/edema. Decreased but persistent hazy opacity throughout the right lung may represent edema versus infectious/inflammatory process. 01/20 BCx NTD 01/21 L thora 1050 cc removed, cx NTD 01/25 Wound cx from Gtube site +CRE Kleb pna (arnett-R) and MDR PsA (colonizers) 01/26 CT A/P: Limited exam, due to severe diffuse anasarca. Ascites. Bilateral pleural effusions. Basilar pulmonary atelectatic changes and consolidation. Gastrostomy. Atrophic left kidney with a nephroureteral stents again demonstrated. Possible retrococcygeal decubitus changes. Correlate with clinical findings, consider MRI if there is concern for sacral osteomyelitis. Right hip intertrochanteric fracture, also previously demonstrated. Left femoral dialysis catheter. Nonspecific right lobe liver lesion is unchanged, not well- demonstrated. ctasia bordering on aneurysmal dilatation and possible chronic dissection of the distal thoracic aorta, also previously described. JAVIER on CKD On previous admission Sep-Oct 2019 required HD for short period Going to start HD this admission again R/o COVID 01/14 COVID PCR neg 12/29 neg at [facility] per report H/o UTI 10/15 u/a wbc 30-40, nit neg, leuk +3; ucx ESBL P. mirablis, ESBL M. morganii //20 u/a wbc tnct, nit neg, leuk +3; ucx >100k MDR P. stuarti (S Ceftriaxone, Meropenem) 8/25 u/a wbc tnct, nit neg, leuk ; ucx >100k VRE 10/15/19 u/a wbc tnct; ucx >100k ESBL P. stuarti (S ertapenem, aztreonam) H/o transudative pleural effusion 11/28 Sp Thora (w: 169, PMN: 2%, L: 49% , LDH: 57, prot 2.5); cx Neg H/o PNA 10/15/19 Resp cx ESBL P. mirabilis, MDR P.a. (S only to Gent) 09/22 Resp cx + MDR PsA (S-gent; I-colistin; R-levofloxacin, Zosyn, angelo) 09/16/19 Sp cx ESBL P. mirablis H/o PPM site (pocket) infection and pocket abscess 2ry to S. epi-11/2018, sp >6weeks IV vancomycin 11/27 SP ABBIE: no evidence for vegetation on any of the valves 11/26/18 SP PPM removal: OR findings:The fibrous capsule enclosing the generator was then opened and there was a [id number] amount of yellowish fluid drainage. The generator was then removed.Atrial and ventricular leads were detached. The necrotic tissue of the pocket was then removed and the pocket was flushed with an antibiotic solution. Capsule, wound tissue and lead tip cx: Neg 2d echo: no vegetation seen US chest: 4.6 x 3.4 x 0.9 cm hypoechoic/anechoic area overlying left chest pacemaker power pack. This could represent either a discrete fluid collection or a focal area of very edematous tissue. Infected fluid pocket also possible. 11/18 Bcx 3/ S. epi; 11/20 Bcx neg; 11/24 Bcx Neg; 11/27 Bcx Neg CAD s/p CABG GERD/gastritis Afib HTN Dysphagia sp GT Aortic dissection s/p repair 2017 S/p PPM Parkinson's Disease Schizophrenia Anxiety COPD Chronic resp failure s/p trach Hx of tracheal bleeding [place] resident ([facility]) VRE and MRSA colonized Plan: Cont daptomycin #11 given transient VRE bacteremia, sepsis - will need 14 day course from neg BCx 03/08, end date 03/21 CK on 03/20 = 216 Cont Avycaz #15 given MDR Kleb pna bacteremia - will need 14 day course from neg BCx 03/08, end date 03/21 Appreciate Surgery input on thoracic aortic aneurysm noted on CT imaging - d/w Dr. Saavedra Pt needs emergent transfer out to [facility] for CT surgery evaluation, primary MD aware Given somewhat transient MDR Kleb pna bacteremia (was not on admission BCx and cleared rapidly after positive BCx), no current indication to remove Permacath as less likely 2/2 line infection and more likely 2/2 gut translocation in setting of GIB, though if leukocytosis persists despite appropriate abx, then will have to reconsider. F/u 03/06 BCx +MDR Kleb pna - need sensi to Avycaz/Zerbaxa (d/w lab, will perform) Trend Hg, GIB Trend BP, WBC 03/16 SP tobramycin IV #10 for resistant UTI 03/10/20 SP edson #4 empiric, vanco #9 01/31 SP angelo/inh tobra #10 for pna 01/23 SP vanco IV #10 given CONS/GPC bacteremia 01/16 SP Zosyn #2 01/14 SP dex 10mg in ED 12/10 SP IV Gentamycin #10 12/07 SP Meropenem #10 12/01 SP IV Vancomycin #5 11/28 Sp Cefepime #2 and IV Gentamycin x1 Monitor CBC/CMP Monitor temp curve, hemodynamics Monitor resp status D/w RN Thank you for this consult. [facility] will continue to follow. Subjective Allergies: Coded Allergies: No Known Allergies (Unverified , 10/10/17) AF NAD on vent 40% PEEP 5 WBC 5.0 Objective Last 24 Hour Vital Signs Date Time Temp Pulse Resp B/P (MAP) Pulse Ox O2 Delivery O2 Flow Rate FiO2 03/20/20 04:00 76 03/20/20 04:00 98.2 81 20 148/78 (101) 99 03/20/20 04:00 40 03/20/20 04:00 Mechanical Ventilator 03/20/20 03:30 77 19 40 03/20/20 00:00 97.7 78 18 165/75 (105) 98 03/20/20 00:00 40 03/20/20 00:00 76 03/20/20 00:00 Mechanical Ventilator 03/19/20 23:22 70 15 40 03/19/20 20:49 86 147/81 03/19/20 20:00 70 2/4/21 20:00 97.2 86 20 135/64 (87) 95 03/19/20 20:00 40 03/19/20 20:00 Mechanical Ventilator 03/19/20 19:45 75 23 40 03/19/20 16:00 Mechanical Ventilator 03/19/20 16:00 97.2 93 26 150/73 (98) 94 03/19/20 16:00 40 03/19/20 16:00 80 03/19/20 14:50 80 23 40 03/19/20 12:00 97.5 65 20 113/58 (76) 95 03/19/20 12:00 Mechanical Ventilator 03/19/20 12:00 63 03/19/20 12:00 40 03/19/20 11:15 62 14 40 03/19/20 08:56 66 115/57 03/19/20 08:00 40 03/19/20 08:00 96.4 64 17 115/57 (76) 99 03/19/20 08:00 Mechanical Ventilator 03/19/20 07:43 64 Height (Feet): 5 Height (Inches): 3.00 Weight (Pounds): 128 Gen: NAD HEENT: NCAT, trach Pulm: BL chest rise on vent Abd: Soft, NTND, +PEG Ext: No c/c/e Skin: No visible rashes Neuro: Awake, minimally interactive Lines: R chest Permacath dressing c/d/i Microbiology Date/Time Source Procedure Growth Status 03/18/20 15:00 Abdominal Fluid Gram Stain Pending Resulted 03/18/20 15:00 Abdominal Fluid Body Fluid Culture - Preliminary NO GROWTH AFTER 24 HOURS Resulted Laboratory Tests Test 03/19/20 13:26 03/19/20 18:08 03/20/20 00:02 03/20/20 04:07 POC Whole Blood Glucose 98 MG/DL (74-106) 78 MG/DL (74-106) 89 MG/DL (74-106) White Blood Count 5.0 K/UL (4.8-10.8) Red Blood Count 3.16 M/UL (4.20-5.40) L Hemoglobin 9.2 G/DL (12.0-16.0) L Hematocrit 27.6 % (37.0-47.0) L Mean Corpuscular Volume 87 FL (80-99) Mean Corpuscular Hemoglobin 29.1 PG (27.0-31.0) Mean Corpuscular Hemoglobin Concent 33.4 G/DL (32.0-36.0) Red Cell Distribution Width 14.6 % (11.6-14.8) Platelet Count 86 K/UL (150-450) L Mean Platelet Volume 10.1 FL (6.5-10.1) Neutrophils (%) (Auto) % (45.0-75.0) Lymphocytes (%) (Auto) % (20.0-45.0) Monocytes (%) (Auto) % (1.0-10.0) Eosinophils (%) (Auto) % (0.0-3.0) Basophils (%) (Auto) % (0.0-2.0) Neutrophils % (Manual) Pending Lymphocytes % (Manual) Pending Platelet Estimate Pending Platelet Morphology Pending Sodium Level 133 MMOL/L (136-145) L Potassium Level 3.8 MMOL/L (3.5-5.1) Chloride Level 97 MMOL/L (98-107) L Carbon Dioxide Level 26 MMOL/L (21-32) Anion Gap 10 mmol/L (5-15) Blood Urea Nitrogen 77 mg/dL (7-18) H Creatinine 2.2 MG/DL (0.55-1.30) H Estimat Glomerular Filtration Rate 23.9 mL/min (>60) Glucose Level 84 MG/DL (74-106) Calcium Level 6.6 MG/DL (8.5-10.1) L Phosphorus Level 2.7 MG/DL (2.5-4.9) Magnesium Level 1.9 MG/DL (1.8-2.4) Total Bilirubin 0.5 MG/DL (0.2-1.0) Aspartate Amino Transf (AST/SGOT) 35 U/L (15-37) Alanine Aminotransferase (ALT/SGPT) 20 U/L (12-78) Alkaline Phosphatase 92 U/L (46-116) Total Creatine Kinase 216 U/L (26-308) Total Protein 5.0 G/DL (6.4-8.2) L Albumin 1.3 G/DL (3.4-5.0) L Globulin 3.7 g/dL Albumin/Globulin Ratio 0.4 (1.0-2.7) L Test 03/20/20 05:38 POC Whole Blood Glucose 78 MG/DL (74-106) Current Medications Medications (Trade) Dose Ordered Sig/Penny Route PRN Reason Start Time Stop Time Status Last Admin Dose Admin Acetaminophen (Tylenol) 650 mg Q6H PRN GT Mild Pain (Pain Scale 1-3) 03/02/20 22:30 04/01/20 22:29 03/18/20 11:14 Acetaminophen (Tylenol) 650 mg Q6H PRN GT Temp >100.5 03/03/20 03:00 04/01/20 22:29 Aspirin (ASA) 81 mg DAILY GT 03/07/20 09:00 04/21/20 08:59 03/18/20 08:17 Carvedilol (Coreg) 6.25 mg EVERY 12 HOURS GT 03/14/20 21:00 04/13/20 20:59 03/19/20 20:49 Ceftazidime/ Avibactam 0.94 gm/ Dextrose 110 ml @ 110 mls/hr Q12HR IV 03/06/20 13:00 03/21/20 22:00 03/19/20 21:34 Chlorhexidine Gluconate (Ling-Hex 2%) 1 applic DAILY@2000 TOPIC 03/03/20 20:00 06/01/20 19:59 03/19/20 20:49 Daptomycin 500 mg/ Sodium Chloride 50 ml @ 100 mls/hr Q48H IV 03/10/20 13:00 03/21/20 23:59 03/18/20 13:21 Dextrose (Dextrose 50%) 25 ml Q30M PRN IV Hypoglycemia 03/15/20 07:30 06/13/20 07:29 Dextrose (Dextrose 50%) 50 ml Q30M PRN IV Hypoglycemia 03/15/20 07:30 06/13/20 07:29 Hydralazine HCl (Apresoline) 25 mg Q6H PRN GT For High Blood Pressure 03/02/20 22:00 05/31/20 21:59 Hydromorphone HCl (Dilaudid) 0.5 mg Q4H PRN IVP For Pain 03/18/20 18:30 03/25/20 18:29 03/19/20 16:30 Loperamide HCl (Imodium) 2 mg Q6H PRN GT Diarrhea 03/06/20 12:45 04/05/20 12:44 03/06/20 13:01 Metoclopramide HCl (Reglan) 5 mg Q8HR IVP 03/04/20 11:45 04/03/20 11:44 03/20/20 05:29 Midodrine (Pro-Amatine) 10 mg EVERY 8 HOURS GT 03/17/20 22:00 06/01/20 12:59 03/20/20 05:29 Pantoprazole (Protonix) 40 mg EVERY 12 HOURS IVP 03/04/20 21:00 04/02/20 20:59 03/19/20 20:49 Polyethylene Glycol (Miralax) 17 gm BEDTIME PRN GT Constipation 03/02/20 22:00 04/01/20 21:59 Sevelamer Carbonate (Renvela) 1,600 mg Q6HR GT 03/19/20 12:00 06/17/20 11:59 03/20/20 05:31 Sodium Hypochlorite (Dakin's Quarter Strength) 1 applic DAILY TOPIC 03/04/20 09:00 04/03/20 08:59 03/19/20 08:55 Sucralfate (Carafate) 1 gm EVERY 6 HOURS GT 03/17/20 18:00 06/09/20 08:59 03/20/20 05:29 Tramadol HCl (Ultram) 50 mg EVERY 8 HOURS GT 03/19/20 14:00 03/26/20 13:59 03/20/20 05:30 Ro Pack M.D. Mar 20, 2020 07:24
[2020-03-20 08:00] VITALS: BP 150/64
[2020-03-20] MEDS: CEFTAZIDIME IV SCH ×2 (08:08→21:21)
[2020-03-20] MEDS: Pantoprazole Inj IVP SCH ×2 (08:08→21:22)
[2020-03-20] MEDS: D5W IV SCH ×2 (08:08→21:21)
[2020-03-20] MEDS: AVIBACTAM IV SCH ×2 (08:08→21:21)
[2020-03-20] MEDS: Carvedilol 6.25mg Tab GT SCH ×3 (08:09→22:00)
[2020-03-20] MEDS: Aspirin Baby 81mg GT SCH (08:09)
[2020-03-20] MEDS: Dakin's 0.125% Soln (Quarter Strength) 16oz TOPIC SCH (08:09)
--- NOTE | 2020-03-20 09:09 | Nephrology Progress Note ---
Assessment/Plan Problem List: (1) Renal failure (ARF), acute on chronic (2) Anemia (3) Hyponatremia (4) Respiratory failure Assessment (1) JAVIER (acute kidney injury) (2) Renal failure (ARF), acute on chronic (3) Feeding by G-tube (4) Tracheostomy in place (5) Electrolyte imbalance, hyponatremia (6) Anemia, severe (7) Respiratory failure, acute and chronic (8) history of elevated lipase, pancreatitis (9) Elevated troponin I (10) Sepsis Plan March 20: Labs reviewed. Patient was dialyzed yesterday. Electrolyte abnormalities corrected. Continue per current management. March 19: Due for dialysis today. Abnormal labs noted. All will be corrected after dialysis. March 18: Labs reviewed. Will dialyze tomorrow. Patient being transfused today. Patient due for abdominal paracentesis. We will keep the [place] in. Continue to monitor renal parameters and dialyze as needed. March 17: No CHEM panel done today. CBC reviewed. Hemoglobin is lowering. Dialyzed yesterday. Will check lab tomorrow. Continue per consultants. March 16: Labs reviewed. Due for dialysis today. Hemoglobin 10.2 today. Continue to monitor renal parameters. March 15: Labs reviewed. Dialyzed March 13. Due for dialysis March 16. Hemoglobin lower. 1 unit of packed RBCs ordered. Per orders. March 14: No labs drawn today. Dialyzed yesterday. Full code. Will check lab tomorrow. Dialysis as needed. March 13: Labs reviewed. Due for dialysis today. Patient remains full code. Continue per current management. March 12: Labs reviewed. Dialyzed yesterday. Due for dialysis tomorrow. Discussed with RN. Patient full code. Continue per current management. March 11: Labs reviewed. Dialyzed this morning. Phosphorus binders dose adjusted. Continue per consultants. Continue to monitor renal parameters. CT: Extensive thoracoabdominal aortic dissection March 10: Labs reviewed. Will order dialysis tomorrow. Phosphorus binders added. Continue per consultants. March 09: No chemistry panel done today. Patient dialyzed yesterday. On dextrose 10% for hypoglycemia. We will check labs tomorrow. Dialysis as needed. March 08: Labs reviewed. Will order dialysis today. Blood sugar low. D10 50 cc an hour started. Continue as is. March 07: Labs reviewed. Dialyzed March 05 and March 06. Continue to monitor renal parameters and hemoglobin. Abnormal electrolytes addressed. IV fluids stopped. Per orders. March 06: Labs reviewed. Dialyzed yesterday. Will reorder dialysis for today. Continue to monitor renal parameters. Hemoglobin 8.4. Patient full code. March 05: Labs reviewed. Patient did not receive dialysis until this morning. Proceed with dialysis. Continue to monitor renal parameters and hemoglobin and hematocrit. March 04: Labs reviewed. Hemoglobin lower. Patient actively bleeding. Was not dialyzed yesterday. Due for GI endoscopy. Continue fluid challenge. Transfusion as needed. Dialysis today. March 03: Labs reviewed. Dialysis ordered. Blood pressure medication all discontinued due to hypotensive state. Albumin bolus given. Continue to monitor renal parameters. Medication list reviewed. Midodrin for low blood pre ssure ordered Subjective ROS Limited/Unobtainable: Yes Objective Objective Last 24 Hour Vital Signs Date Time Temp Pulse Resp B/P (MAP) Pulse Ox O2 Delivery O2 Flow Rate FiO2 03/20/20 08:09 73 143/70 03/20/20 04:00 76 03/20/20 04:00 98.2 81 20 148/78 (101) 99 03/20/20 04:00 40 03/20/20 04:00 Mechanical Ventilator 03/20/20 03:30 77 19 40 03/20/20 00:00 97.7 78 18 165/75 (105) 98 03/20/20 00:00 40 03/20/20 00:00 76 03/20/20 00:00 Mechanical Ventilator 03/19/20 23:22 70 15 40 03/19/20 20:49 86 147/81 03/19/20 20:00 70 03/19/20 20:00 97.2 86 20 135/64 (87) 95 03/19/20 20:00 40 03/19/20 20:00 Mechanical Ventilator 03/19/20 19:45 75 23 40 03/19/20 16:00 Mechanical Ventilator 03/19/20 16:00 97.2 93 26 150/73 (98) 94 03/19/20 16:00 40 03/19/20 16:00 80 03/19/20 14:50 80 23 40 03/19/20 12:00 97.5 65 20 113/58 (76) 95 03/19/20 12:00 Mechanical Ventilator 03/19/20 12:00 63 03/19/20 12:00 40 03/19/20 11:15 62 14 40 Intake and Output 03/19/20 03/20/20 19:00 07:00 Intake Total 300 ml 660 ml Output Total 2060 ml 80 ml Balance -1760 ml 580 ml Intake Free Water 50 ml 130 ml IV Total 110 ml 110 ml Tube Feeding 140 ml 420 ml Output Urine Total 60 ml 80 ml Hemodialysis UF 2000 ml # Voids 8 Current Medications Medications (Trade) Dose Ordered Sig/Penny Route PRN Reason Start Time Stop Time Status Last Admin Dose Admin Acetaminophen (Tylenol) 650 mg Q6H PRN GT Mild Pain (Pain Scale 1-3) 03/02/20 22:30 04/01/20 22:29 03/18/20 11:14 Acetaminophen (Tylenol) 650 mg Q6H PRN GT Temp >100.5 03/03/20 03:00 04/01/20 22:29 Aspirin (ASA) 81 mg DAILY GT 03/07/20 09:00 04/21/20 08:59 03/20/20 08:09 Carvedilol (Coreg) 6.25 mg EVERY 12 HOURS GT 03/14/20 21:00 04/13/20 20:59 03/20/20 08:09 Ceftazidime/ Avibactam 0.94 gm/ Dextrose 110 ml @ 110 mls/hr Q12HR IV 03/06/20 13:00 03/21/20 22:00 03/20/20 08:08 Chlorhexidine Gluconate (Ling-Hex 2%) 1 applic DAILY@2000 TOPIC 03/03/20 20:00 06/01/20 19:59 03/19/20 20:49 Daptomycin 500 mg/ Sodium Chloride 50 ml @ 100 mls/hr Q48H IV 03/10/20 13:00 03/21/20 23:59 03/18/20 13:21 Dextrose (Dextrose 50%) 25 ml Q30M PRN IV Hypoglycemia 03/15/20 07:30 06/13/20 07:29 Dextrose (Dextrose 50%) 50 ml Q30M PRN IV Hypoglycemia 03/15/20 07:30 06/13/20 07:29 Hydralazine HCl (Apresoline) 25 mg Q6H PRN GT For High Blood Pressure 03/02/20 22:00 05/31/20 21:59 Hydromorphone HCl (Dilaudid) 0.5 mg Q4H PRN IVP For Pain 03/18/20 18:30 03/25/20 18:29 03/19/20 16:30 Loperamide HCl (Imodium) 2 mg Q6H PRN GT Diarrhea 03/06/20 12:45 04/05/20 12:44 03/06/20 13:01 Metoclopramide HCl (Reglan) 5 mg Q8HR IVP 03/04/20 11:45 04/03/20 11:44 03/20/20 05:29 Midodrine (Pro-Amatine) 10 mg EVERY 8 HOURS GT 03/17/20 22:00 06/01/20 12:59 03/20/20 05:29 Pantoprazole (Protonix) 40 mg EVERY 12 HOURS IVP 03/04/20 21:00 04/02/20 20:59 03/20/20 08:08 Polyethylene Glycol (Miralax) 17 gm BEDTIME PRN GT Constipation 03/02/20 22:00 04/01/20 21:59 Sevelamer Carbonate (Renvela) 1,600 mg Q6HR GT 03/19/20 12:00 06/17/20 11:59 03/20/20 05:31 Sodium Hypochlorite (Dakin's Quarter Strength) 1 applic DAILY TOPIC 03/04/20 09:00 04/03/20 08:59 03/20/20 08:09 Sucralfate (Carafate) 1 gm EVERY 6 HOURS GT 03/17/20 18:00 06/09/20 08:59 03/20/20 05:29 Tramadol HCl (Ultram) 50 mg EVERY 8 HOURS GT 03/19/20 14:00 03/26/20 13:59 03/20/20 05:30 Laboratory Tests 03/19/20 13:26: POC Whole Blood Glucose 98 03/19/20 18:08: POC Whole Blood Glucose 78 03/20/20 00:02: POC Whole Blood Glucose 89 03/20/20 04:07: White Blood Count 5.0, Red Blood Count 3.16L, Hemoglobin 9.2L, Hematocrit 27.6L, Mean Corpuscular Volume 87, Mean Corpuscular Hemoglobin 29.1, Mean Corpuscular Hemoglobin Concent 33.4, Red Cell Distribution Width 14.6, Platelet Count 86L, Mean Platelet Volume 10.1, Neutrophils (%) (Auto) , Lymphocytes (%) (Auto) , Monocytes (%) (Auto) , Eosinophils (%) (Auto) , Basophils (%) (Auto) , Neutrophils % (Manual) [Pending], Lymphocytes % (Manual) [Pending], Platelet Estimate [Pending], Platelet Morphology [Pending], Sodium Level 133L, Potassium Level 3.8, Chloride Level 97L, Carbon Dioxide Level 26, Anion Gap 10, Blood Urea Nitrogen 77H, Creatinine 2.2H, Estimat Glomerular Filtration Rate 23.9, Glucose Level 84, Calcium Level 6.6L, Phosphorus Level 2.7, Magnesium Level 1.9, Total Bilirubin 0.5, Aspartate Amino Transf (AST/SGOT) 35, Alanine Aminotransferase (ALT/SGPT) 20, Alkaline Phosphatase 92, Total Creatine Kinase 216, Total Protein 5.0L, Albumin 1.3L, Globulin 3.7, Albumin/Globulin Ratio 0.4L 03/20/20 05:38: POC Whole Blood Glucose 78 Height (Feet): 5 Height (Inches): 3.00 Weight (Pounds): 128 General Appearance: no apparent distress EENT: other - Trached on ventilator Cardiovascular: normal rate Respiratory/Chest: decreased breath sounds Abdomen: distended Johnny Houston MD Mar 20, 2020 09:09
--- NOTE | 2020-03-20 10:30 | NUR ---
NURSE NOTES: Initial assessment done. Morning medications administered per order. VSS. Tolerating vent setting with O2 saturation 97%. Oral care and suctioning done. Pt turned and repositioned. Will continue to monitor pt. Will continue with the plan of care.
--- NOTE | 2020-03-20 11:58 | NUR ---
CASE MANAGEMENT:REVIEW 03/20/20 SI: SEPSIS. AC/CHR RENAL FAILURE ANEMIA...S/P 13 UNITS PRBC'S. TRACH/VENT/GTUBE 97.2 74 20 150/64 96% ON VENT SUPPORT W/40% FIO2 H/H-9.2/27.6 PLT-86 NA-133 BUN+77 CR+2.2 IS: IV DAPTOMYCIN Q48 IV CEFTAZIDIME Q12 IV PROTONIX Q12 ASA GT QD COREG GT Q12 CARAFATE GT Q6HRS : STEP DOWN UNIT DCP: FROM [facility]
[2020-03-20 12:00] VITALS: BP 134/56
[2020-03-20] MEDS: DAPTOMYCIN 500 MG IV SCH (12:38)
[2020-03-20] MEDS: SODIUM CHLORIDE IV SCH (12:38)
--- NOTE | 2020-03-20 12:39 | General Progress Note ---
Subjective ROS Limited/Unobtainable: No Allergies: Coded Allergies: No Known Allergies (Unverified , 10/10/17) Objective Last 24 Hour Vital Signs Date Time Temp Pulse Resp B/P (MAP) Pulse Ox O2 Delivery O2 Flow Rate FiO2 03/20/20 08:09 73 143/70 03/20/20 08:00 70 03/20/20 08:00 97.2 74 20 150/64 (92) 96 03/20/20 08:00 40 03/20/20 08:00 Mechanical Ventilator 03/20/20 04:00 76 03/20/20 04:00 98.2 81 20 148/78 (101) 99 03/20/20 04:00 40 03/20/20 04:00 Mechanical Ventilator 03/20/20 03:30 77 19 40 03/20/20 00:00 97.7 78 18 165/75 (105) 98 03/20/20 00:00 40 03/20/20 00:00 76 03/20/20 00:00 Mechanical Ventilator 03/19/20 23:22 70 15 40 03/19/20 20:49 86 147/81 03/19/20 20:00 70 03/19/20 20:00 97.2 86 20 135/64 (87) 95 03/19/20 20:00 40 03/19/20 20:00 Mechanical Ventilator 03/19/20 19:45 75 23 40 03/19/20 16:00 Mechanical Ventilator 03/19/20 16:00 97.2 93 26 150/73 (98) 94 03/19/20 16:00 40 03/19/20 16:00 80 03/19/20 14:50 80 23 40 Intake and Output 03/19/20 03/20/20 19:00 07:00 Intake Total 300 ml 660 ml Output Total 2060 ml 80 ml Balance -1760 ml 580 ml Intake Free Water 50 ml 130 ml IV Total 110 ml 110 ml Tube Feeding 140 ml 420 ml Output Urine Total 60 ml 80 ml Hemodialysis UF 2000 ml # Voids 8 Laboratory Tests 03/19/20 13:26: POC Whole Blood Glucose 98 03/19/20 18:08: POC Whole Blood Glucose 78 03/20/20 00:02: POC Whole Blood Glucose 89 03/20/20 04:07: White Blood Count 5.0, Red Blood Count 3.16L, Hemoglobin 9.2L, Hematocrit 27.6L, Mean Corpuscular Volume 87, Mean Corpuscular Hemoglobin 29.1, Mean Corpuscular Hemoglobin Concent 33.4, Red Cell Distribution Width 14.6, Platelet Count 86L, Mean Platelet Volume 10.1, Neutrophils (%) (Auto) , Lymphocytes (%) (Auto) , Monocytes (%) (Auto) , Eosinophils (%) (Auto) , Basophils (%) (Auto) , Differential Total Cells Counted 100, Neutrophils % (Manual) 73, Lymphocytes % (Manual) 19L, Monocytes % (Manual) 6, Eosinophils % (Manual) 0, Basophils % (Manual) 0, Band Neutrophils 2, Platelet Estimate DecreasedL, Platelet Morphology Normal, Anisocytosis 1+, Sodium Level 133L, Potassium Level 3.8, Chloride Level 97L, Carbon Dioxide Level 26, Anion Gap 10, Blood Urea Nitrogen 77H, Creatinine 2.2H, Estimat Glomerular Filtration Rate 23.9, Glucose Level 84, Calcium Level 6.6L, Phosphorus Level 2.7, Magnesium Level 1.9, Total Bilirubin 0.5, Aspartate Amino Transf (AST/SGOT) 35, Alanine Aminotransferase (ALT/SGPT) 20, Alkaline Phosphatase 92, Total Creatine Kinase 216, Total Protein 5.0L, Albumin 1.3L, Globulin 3.7, Albumin/Globulin Ratio 0.4L 03/20/20 05:38: POC Whole Blood Glucose 78 03/20/20 11:50: POC Whole Blood Glucose 86 Height (Feet): 5 Height (Inches): 3.00 Weight (Pounds): 128 General Appearance: no apparent distress EENT: normal ENT inspection Neck: supple Cardiovascular: normal rate Respiratory/Chest: decreased breath sounds Abdomen: normal bowel sounds, non tender, soft Extremities: non-tender Assessment/Plan Problem List: (1) Hx of CABG ICD Codes: Z95.1 - Presence of aortocoronary bypass graft SNOMED: 838601473, 475795150 (2) History of tracheostomy ICD Codes: Z98.890 - Other specified postprocedural states SNOMED: 463619891, 296461530 (3) PEG (percutaneous endoscopic gastrostomy) status ICD Codes: Z93.1 - Gastrostomy status SNOMED: 347471353, 047885004 (4) Renal failure ICD Codes: N19 - Unspecified kidney failure SNOMED: 61469777, 397028993 (5) Severe anemia ICD Codes: D64.9 - Anemia, unspecified SNOMED: 209262483 Assessment/Plan: s/p EGD gastric ulcer on ppi and carafate fu H&H s/p one unit PRBC 03/11/20, 03/15, 03/18/20 GTF per nurses no melena or hematochezia plan repeat cbc tomorow stool ob Inder Mccauley MD Mar 20, 2020 12:39
--- NOTE | 2020-03-20 14:00 | NUR ---
NURSE NOTES: Afternoon medications administered per order. Pt lying comfortably. No facial grimacing noted. Oral suctioning done. VSS. Will continue with the plan of care.
--- NOTE | 2020-03-20 15:00 | Pulmonology Progress Note ---
Subjective ROS Limited/Unobtainable: No Interval Events: s/p paracentesis, 2.3L out; s/p 2 uniuts PRBC HEENT: Repors: no symptoms Respiratory: Reports: no symptoms Cardiovascular: Reports: no symptoms Gastrointestinal/Abdominal: Reports: diarrhea Allergies: Coded Allergies: No Known Allergies (Unverified , 10/10/17) All Systems: reviewed and negative except above Objective Last 24 Hour Vital Signs Date Time Temp Pulse Resp B/P (MAP) Pulse Ox O2 Delivery O2 Flow Rate FiO2 03/20/20 12:00 Mechanical Ventilator 03/20/20 12:00 40 03/20/20 12:00 97.0 70 18 134/56 (82) 97 03/20/20 11:44 67 03/20/20 11:13 65 18 40 03/20/20 08:09 73 143/70 03/20/20 08:00 70 03/20/20 08:00 97.2 74 20 150/64 (92) 96 03/20/20 08:00 40 03/20/20 08:00 Mechanical Ventilator 03/20/20 07:18 75 19 40 03/20/20 04:00 76 03/20/20 04:00 98.2 81 20 148/78 (101) 99 03/20/20 04:00 40 03/20/20 04:00 Mechanical Ventilator 03/20/20 03:30 77 19 40 03/20/20 00:00 97.7 78 18 165/75 (105) 98 03/20/20 00:00 40 03/20/20 00:00 76 03/20/20 00:00 Mechanical Ventilator 03/19/20 23:22 70 15 40 03/19/20 20:49 86 147/81 03/19/20 20:00 70 03/19/20 20:00 97.2 86 20 135/64 (87) 95 03/19/20 20:00 40 03/19/20 20:00 Mechanical Ventilator 03/19/20 19:45 75 23 40 03/19/20 16:00 Mechanical Ventilator 03/19/20 16:00 97.2 93 26 150/73 (98) 94 03/19/20 16:00 40 03/19/20 16:00 80 Intake and Output 03/19/20 03/20/20 19:00 07:00 Intake Total 300 ml 660 ml Output Total 2060 ml 80 ml Balance -1760 ml 580 ml Intake Free Water 50 ml 130 ml IV Total 110 ml 110 ml Tube Feeding 140 ml 420 ml Output Urine Total 60 ml 80 ml Hemodialysis UF 2000 ml # Voids 8 General Appearance: no acute distress HEENT: atraumatic Respiratory: lungs clear Cardiovascular: normal rate, regular rhythm Extremities: other - edema bilateral Microbiology Date/Time Source Procedure Growth Status 03/18/20 15:00 Abdominal Fluid Gram Stain - Final Resulted 03/18/20 15:00 Abdominal Fluid Body Fluid Culture - Preliminary NO GROWTH AFTER 48 HOURS Resulted Laboratory Tests 03/19/20 18:08: POC Whole Blood Glucose 78 03/20/20 00:02: POC Whole Blood Glucose 89 03/20/20 04:07: White Blood Count 5.0, Red Blood Count 3.16L, Hemoglobin 9.2L, Hematocrit 27.6L, Mean Corpuscular Volume 87, Mean Corpuscular Hemoglobin 29.1, Mean Corpuscular Hemoglobin Concent 33.4, Red Cell Distribution Width 14.6, Platelet Count 86L, Mean Platelet Volume 10.1, Neutrophils (%) (Auto) , Lymphocytes (%) (Auto) , Monocytes (%) (Auto) , Eosinophils (%) (Auto) , Basophils (%) (Auto) , Differential Total Cells Counted 100, Neutrophils % (Manual) 73, Lymphocytes % (Manual) 19L, Monocytes % (Manual) 6, Eosinophils % (Manual) 0, Basophils % (Manual) 0, Band Neutrophils 2, Platelet Estimate DecreasedL, Platelet Morphology Normal, Anisocytosis 1+, Sodium Level 133L, Potassium Level 3.8, Chloride Level 97L, Carbon Dioxide Level 26, Anion Gap 10, Blood Urea Nitrogen 77H, Creatinine 2.2H, Estimat Glomerular Filtration Rate 23.9, Glucose Level 84, Calcium Level 6.6L, Phosphorus Level 2.7, Magnesium Level 1.9, Total Bilirubin 0.5, Aspartate Amino Transf (AST/SGOT) 35, Alanine Aminotransferase (ALT/SGPT) 20, Alkaline Phosphatase 92, Total Creatine Kinase 216, Total Protein 5.0L, Albumin 1.3L, Globulin 3.7, Albumin/Globulin Ratio 0.4L 03/20/20 05:38: POC Whole Blood Glucose 78 03/20/20 11:50: POC Whole Blood Glucose 86 Current Medications Medications (Trade) Dose Ordered Sig/Penny Route PRN Reason Start Time Stop Time Status Last Admin Dose Admin Acetaminophen (Tylenol) 650 mg Q6H PRN GT Mild Pain (Pain Scale 1-3) 03/02/20 22:30 04/01/20 22:29 03/18/20 11:14 Acetaminophen (Tylenol) 650 mg Q6H PRN GT Temp >100.5 03/03/20 03:00 04/01/20 22:29 Aspirin (ASA) 81 mg DAILY GT 03/07/20 09:00 04/21/20 08:59 03/20/20 08:09 Carvedilol (Coreg) 6.25 mg EVERY 12 HOURS GT 03/14/20 21:00 04/13/20 20:59 03/20/20 08:09 Ceftazidime/ Avibactam 0.94 gm/ Dextrose 110 ml @ 110 mls/hr Q12HR IV 03/06/20 13:00 03/21/20 22:00 03/20/20 08:08 Chlorhexidine Gluconate (Ling-Hex 2%) 1 applic DAILY@2000 TOPIC 03/03/20 20:00 06/01/20 19:59 03/19/20 20:49 Daptomycin 500 mg/ Sodium Chloride 50 ml @ 100 mls/hr Q48H IV 03/10/20 13:00 03/21/20 23:59 03/20/20 12:38 Dextrose (Dextrose 50%) 25 ml Q30M PRN IV Hypoglycemia 03/15/20 07:30 06/13/20 07:29 Dextrose (Dextrose 50%) 50 ml Q30M PRN IV Hypoglycemia 03/15/20 07:30 06/13/20 07:29 Hydralazine HCl (Apresoline) 25 mg Q6H PRN GT For High Blood Pressure 03/02/20 22:00 05/31/20 21:59 Hydromorphone HCl (Dilaudid) 0.5 mg Q4H PRN IVP For Pain 03/18/20 18:30 03/25/20 18:29 03/19/20 16:30 Loperamide HCl (Imodium) 2 mg Q6H PRN GT Diarrhea 03/06/20 12:45 04/05/20 12:44 03/06/20 13:01 Metoclopramide HCl (Reglan) 5 mg Q8HR IVP 03/04/20 11:45 04/03/20 11:44 03/20/20 14:24 Midodrine (Pro-Amatine) 10 mg EVERY 8 HOURS GT 03/17/20 22:00 06/01/20 12:59 03/20/20 05:29 Pantoprazole (Protonix) 40 mg EVERY 12 HOURS IVP 03/04/20 21:00 04/02/20 20:59 03/20/20 08:08 Polyethylene Glycol (Miralax) 17 gm BEDTIME PRN GT Constipation 03/02/20 22:00 04/01/20 21:59 Sevelamer Carbonate (Renvela) 1,600 mg Q6HR GT 03/19/20 12:00 06/17/20 11:59 03/20/20 12:38 Sodium Hypochlorite (Dakin's Quarter Strength) 1 applic DAILY TOPIC 03/04/20 09:00 04/03/20 08:59 03/20/20 08:09 Sucralfate (Carafate) 1 gm EVERY 6 HOURS GT 03/17/20 18:00 06/09/20 08:59 03/20/20 12:38 Tramadol HCl (Ultram) 50 mg EVERY 8 HOURS GT 03/19/20 14:00 03/26/20 13:59 03/20/20 14:25 Assessment/Plan Assessment/Plan 1. Chronic respiratory failure. - CT chest/abd/pelv: improving pleural effusion 2. Mechanical ventilation. - current setting at AC 14, Vt 500, FiO2 40%, PEEP 5 saturating well - continue current setting - suction secretions as needed 3. Chronic tracheostomy. 4. Chronic G-tube. 5. Anemia. - s/p transfusion - stool OB positive (03/02, 03/03) - off anticoags 6. Renal failure. 7. Leukocytosis and sepsis. - WBC now resolved 8. Sepsis UTI 9. Gram positive cocci bacteremia - f/u BCx negative for growth 10. COVID-19 negative 11. Diarrhea - C. diff neg 12. Hypoglycemia - resolved 13. Bradycardia - no urgent indication for pacemaker per cardio 14. Gastric ulcer - on PPI - GI following 15. Pleural effusion - small; insufficient volume for safe thoracentesis 16. thoracic aortic aneurysm - noted on CT imaging - pt needs emergent transfer out to [facility] for CT surgery evaluation, primary MD aware - Pt might not be a candidate for TAA repair 17. Ascites - s/p paracentesis (2/3), 2.3L out We will follow carefully. ID and Hematology following. The care for this patient was discussed with my supervising physician Time spent for this case was approximately 31 minutes Cruz Wilson Mar 20, 2020 15:00
--- NOTE | 2020-03-20 15:10 | NUR ---
NURSE NOTES: Sponge bath done, gown and linens changed. Wounds cleaned and dressing changed. Oral care and suctioning done. Pt is turned and repositioned. Pt tolerated well. VSS, tolerating vent setting with O2 96%. Will continue to closely monitor pt.
[2020-03-20 16:00] VITALS: BP 130/60
--- NOTE | 2020-03-20 16:51 | NUR ---
INSURANCE CLINCALS/REVIEW FAXED TO [facility] T: [phone] F: [phone]
--- NOTE | 2020-03-20 17:00 | NUR ---
NURSE NOTES: Afternoon medications given. Pt is turned and repositioned. No facial grimacing noted. VSS. Tolerating vent setting with O2 sat 97%. Will continue with plan of care.
--- NOTE | 2020-03-20 18:32 | General Progress Note ---
Subjective Constitutional: Reports: no symptoms HEENT: Reports: no symptoms Cardiovascular: Reports: no symptoms Respiratory: Reports: no symptoms Gastrointestinal/Abdominal: Reports: no symptoms Genitourinary: Reports: no symptoms Neurologic/Psychiatric: Reports: depressed Endocrine: Reports: no symptoms Hematologic/Lymphatic: Reports: no symptoms Allergies: Coded Allergies: No Known Allergies (Unverified , 10/10/17) Objective Last 24 Hour Vital Signs Date Time Temp Pulse Resp B/P (MAP) Pulse Ox O2 Delivery O2 Flow Rate FiO2 03/20/20 16:00 73 03/20/20 16:00 40 03/20/20 16:00 98.0 68 20 130/60 (83) 98 03/20/20 16:00 Mechanical Ventilator 03/20/20 15:15 69 25 40 03/20/20 12:00 Mechanical Ventilator 03/20/20 12:00 40 03/20/20 12:00 97.0 70 18 134/56 (82) 97 03/20/20 11:44 67 03/20/20 11:13 65 18 40 03/20/20 08:09 73 143/70 03/20/20 08:00 70 03/20/20 08:00 97.2 74 20 150/64 (92) 96 03/20/20 08:00 40 03/20/20 08:00 Mechanical Ventilator 03/20/20 07:18 75 19 40 03/20/20 04:00 76 03/20/20 04:00 98.2 81 20 148/78 (101) 99 03/20/20 04:00 40 03/20/20 04:00 Mechanical Ventilator 03/20/20 03:30 77 19 40 03/20/20 00:00 97.7 78 18 165/75 (105) 98 03/20/20 00:00 40 03/20/20 00:00 76 03/20/20 00:00 Mechanical Ventilator 03/19/20 23:22 70 15 40 03/19/20 20:49 86 147/81 03/19/20 20:00 70 03/19/20 20:00 97.2 86 20 135/64 (87) 95 03/19/20 20:00 40 03/19/20 20:00 Mechanical Ventilator 03/19/20 19:45 75 23 40 Intake and Output 03/19/20 03/20/20 19:00 07:00 Intake Total 300 ml 660 ml Output Total 2060 ml 80 ml Balance -1760 ml 580 ml Intake Free Water 50 ml 130 ml IV Total 110 ml 110 ml Tube Feeding 140 ml 420 ml Output Urine Total 60 ml 80 ml Hemodialysis UF 2000 ml # Voids 8 Laboratory Tests 03/20/20 00:02: POC Whole Blood Glucose 89 03/20/20 04:07: White Blood Count 5.0, Red Blood Count 3.16L, Hemoglobin 9.2L, Hematocrit 27.6L, Mean Corpuscular Volume 87, Mean Corpuscular Hemoglobin 29.1, Mean Corpuscular H emoglobin Concent 33.4, Red Cell Distribution Width 14.6, Platelet Count 86L, Mean Platelet Volume 10.1, Neutrophils (%) (Auto) , Lymphocytes (%) (Auto) , Monocytes (%) (Auto) , Eosinophils (%) (Auto) , Basophils (%) (Auto) , Different ial Total Cells Counted 100, Neutrophils % (Manual) 73, Lymphocytes % (Manual) 19L, Monocytes % (Manual) 6, Eosinophils % (Manual) 0, Basophils % (Manual) 0, Band Neutrophils 2, Platelet Estimate DecreasedL, Platelet Morphology Normal, Anisocytosis 1+, Sodium Level 133L, Potassium Level 3.8, Chloride Level 97L, Carbon Dioxide Level 26, Anion Gap 10, Blood Urea Nitrogen 77H, Creatinine 2.2H, Estimat Glomerular Filtration Rate 23.9, Glucose Level 84, Calcium Level 6.6L, Phosphorus Level 2.7, Magnesium Level 1.9, Total Bilirubin 0.5, Aspartate Amino Transf (AST/SGOT) 35, Alanine Aminotransferase (ALT/SGPT) 20, Alkaline Phosphatase 92, Total Creatine Kinase 216, Total Protein 5.0L, Albumin 1.3L, Globulin 3.7, Albumin/Globulin Ratio 0.4L 03/20/20 05:38: POC Whole Blood Glucose 78 03/20/20 11:50: POC Whole Blood Glucose 86 03/20/20 18:08: POC Whole Blood Glucose 80 Height (Feet): 5 Height (Inches): 3.00 Weight (Pounds): 128 General Appearance: lethargic EENT: normal ENT inspection Neck: supple Cardiovascular: normal rate, regular rhythm, no gallop/murmur, no JVD Respiratory/Chest: normal breath sounds, no respiratory distress, no accessory muscle use, decreased breath sounds Abdomen: normal bowel sounds, non tender, soft, no organomegaly, no mass Extremities: non-tender Edema: 2+ Leg (L), 2+ Leg (R) Neurologic: alert, other - Normally interacting with examiner Skin: warm/dry Assessment/Plan Status Narrative Patient is awake but mostly somnolent afebrile hemodynamically stable without pain behavior and appears moderately depressed continue to be on daptomycin and IV case laboratory tests are stable in regard to WBC H&H and platelet and physical exam is unchanged abdominal tap done 2 days ago did not yield any new organism thoracic aortic aneurysm and dissection in her abdominal out aortic aneurysm in the section appears stable repeat laboratory tests will be done in a.m. Lucas Vera MD, MD Mar 20, 2020 18:32
--- NOTE | 2020-03-20 19:16 | NUR ---
NURSE HAND-OFF REPORT: Important Events on Shift:None Patient Status: full code Diet: Nepro @ 35CC/hr Pending Orders: N Pending Results/Labs:N Pending notification:N Latest Vital Signs: Temperature 98.0 , Pulse 68 , B/P 130 /60 , Respiratory Rate 20 , O2 SAT 98 , Mechanical Ventilator, O2 Flow Rate . Vital Sign Comment: stable EKG Rhythm: Sinus Rhythm Rhythm change?: N MD Notified?: N -Dr Екатерина HATFIELD Response: No New Orders Received Latest [place] Fall Score: 50 Fall Risk: High Risk Safety Measures: Call light Within Reach, Bed Alarm Zone 2, Side Rails Side Rails x3, Bed position Low and Locked. Fall Precautions: Yellow Socks Report given to colin Terrell RN.
--- NOTE | 2020-03-20 19:45 | NUR ---
NURSE NOTES: RN received report from day nurse. Patient resting. Patient on trach to mechanical ventilator settings are assist control 14 tidal volume 500 fio2 40% o2 sats are 98%. Patient vitals are stable at this time. Patient is saline locked with no fluids infusing at this time. Patient has patent raymond in place. RN will continue to monitor.
[2020-03-20 20:00] VITALS: BP 129/63
[2020-03-20] MEDS: Dyna-Hex 2% Top Sol 2oz TOPIC SCH (20:00)
--- NOTE | 2020-03-20 21:57 | Cardiology Progress Note ---
Subjective DATE OF SERVICE: Mar 19, 2020 (late entry) Heart rates remain in stable range; carvedilol dose advanced and tolerated, in setting of aortic dissection. BP parameters stable. CT scan now reveals extensive thoracoabd aortic dissection. Dialysis per renal; last session was today Pt is s/p paracentesis (50cc) Objective Last 24 Hour Vital Signs Date Time Temp Pulse Resp B/P (MAP) Pulse Ox O2 Delivery O2 Flow Rate FiO2 03/20/20 21:30 68 18 40 03/20/20 21:19 72 129/63 03/20/20 20:00 Mechanical Ventilator 03/20/20 20:00 68 03/20/20 20:00 40 03/20/20 20:00 98.1 72 20 129/63 (85) 97 03/20/20 19:30 67 16 40 03/20/20 16:00 73 03/20/20 16:00 40 03/20/20 16:00 98.0 68 20 130/60 (83) 98 03/20/20 16:00 Mechanical Ventilator 03/20/20 15:15 69 25 40 03/20/20 12:00 Mechanical Ventilator 03/20/20 12:00 40 03/20/20 12:00 97.0 70 18 134/56 (82) 97 03/20/20 11:44 67 03/20/20 11:13 65 18 40 03/20/20 08:09 73 143/70 03/20/20 08:00 70 03/20/20 08:00 97.2 74 20 150/64 (92) 96 03/20/20 08:00 40 03/20/20 08:00 Mechanical Ventilator 03/20/20 07:18 75 19 40 03/20/20 04:00 76 03/20/20 04:00 98.2 81 20 148/78 (101) 99 03/20/20 04:00 40 03/20/20 04:00 Mechanical Ventilator 03/20/20 03:30 77 19 40 03/20/20 00:00 97.7 78 18 165/75 (105) 98 03/20/20 00:00 40 03/20/20 00:00 76 03/20/20 00:00 Mechanical Ventilator 03/19/20 23:22 70 15 40 HEENT: Thin Trach secretions RHYTHM: NSR, SB LUNGS: bilateral rhonchi - few, trach site clean CARDIAC: normal rate, regular rhythm, normal S1 and S2 ABDOMEN: normal bowel sounds, non tender, soft, G-Tube intact EXTREMITIES: normal range of motion, non-tender, normal inspection Laboratory Tests Test 03/20/20 00:02 03/20/20 04:07 03/20/20 05:38 03/20/20 11:50 POC Whole Blood Glucose 89 MG/DL (74-106) 78 MG/DL (74-106) 86 MG/DL (74-106) White Blood Count 5.0 K/UL (4.8-10.8) Red Blood Count 3.16 M/UL (4.20-5.40) L Hemoglobin 9.2 G/DL (12.0-16.0) L Hematocrit 27.6 % (37.0-47.0) L Mean Corpuscular Volume 87 FL (80-99) Mean Corpuscular Hemoglobin 29.1 PG (27.0-31.0) Mean Corpuscular Hemoglobin Concent 33.4 G/DL (32.0-36.0) Red Cell Distribution Width 14.6 % (11.6-14.8) Platelet Count 86 K/UL (150-450) L Mean Platelet Volume 10.1 FL (6.5-10.1) Neutrophils (%) (Auto) % (45.0-75.0) Lymphocytes (%) (Auto) % (20.0-45.0) Monocytes (%) (Auto) % (1.0-10.0) Eosinophils (%) (Auto) % (0.0-3.0) Basophils (%) (Auto) % (0.0-2.0) Differential Total Cells Counted 100 Neutrophils % (Manual) 73 % (45-75) Lymphocytes % (Manual) 19 % (20-45) L Monocytes % (Manual) 6 % (1-10) Eosinophils % (Manual) 0 % (0-3) Basophils % (Manual) 0 % (0-2) Band Neutrophils 2 % (0-8) Platelet Estimate Decreased L Platelet Morphology Normal Anisocytosis 1+ Sodium Level 133 MMOL/L (136-145) L Potassium Level 3.8 MMOL/L (3.5-5.1) Chloride Level 97 MMOL/L (98-107) L Carbon Dioxide Level 26 MMOL/L (21-32) Anion Gap 10 mmol/L (5-15) Blood Urea Nitrogen 77 mg/dL (7-18) H Creatinine 2.2 MG/DL (0.55-1.30) H Estimat Glomerular Filtration Rate 23.9 mL/min (>60) Glucose Level 84 MG/DL (74-106) Calcium Level 6.6 MG/DL (8.5-10.1) L Phosphorus Level 2.7 MG/DL (2.5-4.9) Magnesium Level 1.9 MG/DL (1.8-2.4) Total Bilirubin 0.5 MG/DL (0.2-1.0) Aspartate Amino Transf (AST/SGOT) 35 U/L (15-37) Alanine Aminotransferase (ALT/SGPT) 20 U/L (12-78) Alkaline Phosphatase 92 U/L (46-116) Total Creatine Kinase 216 U/L (26-308) Total Protein 5.0 G/DL (6.4-8.2) L Albumin 1.3 G/DL (3.4-5.0) L Globulin 3.7 g/dL Albumin/Globulin Ratio 0.4 (1.0-2.7) L Test 03/20/20 18:08 POC Whole Blood Glucose 80 MG/DL (74-106) Microbiology Date/Time Source Procedure Growth Status 03/18/20 15:00 Abdominal Fluid Gram Stain - Final Resulted 03/18/20 15:00 Abdominal Fluid Body Fluid Culture - Preliminary NO GROWTH AFTER 48 HOURS Resulted Assessment/Plan Assessment/Plan Aortic dissections Sepsis with recovered shock Sinus node disease with bradycardia Hx pacemaker explant Ischemic cardiomyopathy - hx CABG? Paroxysmal Atrial Fib Respiratory failure with trach Hx thoracic aortic aneurysm repair ESRD Anemia - worse today Will continue current dose of beta flori (with hold parameter) and advance as tolerated by underlying sinus node disease playground monitor Vent support Antimicrobials DVT prophyl No urgent indication for pacemaker at present. HD/UF per renal Needs higher level of care ultimately for repair of aortic dissection, although may not be a surgical candidate Deni Willams MD Mar 20, 2020 21:56
--- NOTE | 2020-03-20 21:58 | Cardiology Progress Note ---
Subjective DATE OF SERVICE: Mar 20, 2020 Heart rates remain in stable range; carvedilol dose advanced and tolerated, in setting of aortic dissection. BP parameters stable. CT scan now reveals extensive thoracoabd aortic dissection. Dialysis per renal; last session was 03/19/20 Pt is s/p paracentesis (50cc) Objective Last 24 Hour Vital Signs Date Time Temp Pulse Resp B/P (MAP) Pulse Ox O2 Delivery O2 Flow Rate FiO2 03/20/20 21:30 68 18 40 03/20/20 21:19 72 129/63 03/20/20 20:00 Mechanical Ventilator 03/20/20 20:00 68 03/20/20 20:00 40 03/20/20 20:00 98.1 72 20 129/63 (85) 97 03/20/20 19:30 67 16 40 03/20/20 16:00 73 03/20/20 16:00 40 03/20/20 16:00 98.0 68 20 130/60 (83) 98 03/20/20 16:00 Mechanical Ventilator 03/20/20 15:15 69 25 40 03/20/20 12:00 Mechanical Ventilator 03/20/20 12:00 40 03/20/20 12:00 97.0 70 18 134/56 (82) 97 03/20/20 11:44 67 03/20/20 11:13 65 18 40 03/20/20 08:09 73 143/70 03/20/20 08:00 70 03/20/20 08:00 97.2 74 20 150/64 (92) 96 03/20/20 08:00 40 03/20/20 08:00 Mechanical Ventilator 03/20/20 07:18 75 19 40 03/20/20 04:00 76 03/20/20 04:00 98.2 81 20 148/78 (101) 99 03/20/20 04:00 40 03/20/20 04:00 Mechanical Ventilator 03/20/20 03:30 77 19 40 03/20/20 00:00 97.7 78 18 165/75 (105) 98 03/20/20 00:00 40 03/20/20 00:00 76 03/20/20 00:00 Mechanical Ventilator 03/19/20 23:22 70 15 40 HEENT: Thin Trach secretions RHYTHM: NSR, SB LUNGS: bilateral rhonchi - few, trach site clean CARDIAC: normal rate, regular rhythm, normal S1 and S2 ABDOMEN: normal bowel sounds, non tender, soft, G-Tube intact EXTREMITIES: normal range of motion, non-tender, normal inspection Laboratory Tests Test 03/20/20 00:02 03/20/20 04:07 03/20/20 05:38 03/20/20 11:50 POC Whole Blood Glucose 89 MG/DL (74-106) 78 MG/DL (74-106) 86 MG/DL (74-106) White Blood Count 5.0 K/UL (4.8-10.8) Red Blood Count 3.16 M/UL (4.20-5.40) L Hemoglobin 9.2 G/DL (12.0-16.0) L Hematocrit 27.6 % (37.0-47.0) L Mean Corpuscular Volume 87 FL (80-99) Mean Corpuscular Hemoglobin 29.1 PG (27.0-31.0) Mean Corpuscular Hemoglobin Concent 33.4 G/DL (32.0-36.0) Red Cell Distribution Width 14.6 % (11.6-14.8) Platelet Count 86 K/UL (150-450) L Mean Platelet Volume 10.1 FL (6.5-10.1) Neutrophils (%) (Auto) % (45.0-75.0) Lymphocytes (%) (Auto) % (20.0-45.0) Monocytes (%) (Auto) % (1.0-10.0) Eosinophils (%) (Auto) % (0.0-3.0) Basophils (%) (Auto) % (0.0-2.0) Differential Total Cells Counted 100 Neutrophils % (Manual) 73 % (45-75) Lymphocytes % (Manual) 19 % (20-45) L Monocytes % (Manual) 6 % (1-10) Eosinophils % (Manual) 0 % (0-3) Basophils % (Manual) 0 % (0-2) Band Neutrophils 2 % (0-8) Platelet Estimate Decreased L Platelet Morphology Normal Anisocytosis 1+ Sodium Level 133 MMOL/L (136-145) L Potassium Level 3.8 MMOL/L (3.5-5.1) Chloride Level 97 MMOL/L (98-107) L Carbon Dioxide Level 26 MMOL/L (21-32) Anion Gap 10 mmol/L (5-15) Blood Urea Nitrogen 77 mg/dL (7-18) H Creatinine 2.2 MG/DL (0.55-1.30) H Estimat Glomerular Filtration Rate 23.9 mL/min (>60) Glucose Level 84 MG/DL (74-106) Calcium Level 6.6 MG/DL (8.5-10.1) L Phosphorus Level 2.7 MG/DL (2.5-4.9) Magnesium Level 1.9 MG/DL (1.8-2.4) Total Bilirubin 0.5 MG/DL (0.2-1.0) Aspartate Amino Transf (AST/SGOT) 35 U/L (15-37) Alanine Aminotransferase (ALT/SGPT) 20 U/L (12-78) Alkaline Phosphatase 92 U/L (46-116) Total Creatine Kinase 216 U/L (26-308) Total Protein 5.0 G/DL (6.4-8.2) L Albumin 1.3 G/DL (3.4-5.0) L Globulin 3.7 g/dL Albumin/Globulin Ratio 0.4 (1.0-2.7) L Test 03/20/20 18:08 POC Whole Blood Glucose 80 MG/DL (74-106) Microbiology Date/Time Source Procedure Growth Status 03/18/20 15:00 Abdominal Fluid Gram Stain - Final Resulted 03/18/20 15:00 Abdominal Fluid Body Fluid Culture - Preliminary NO GROWTH AFTER 48 HOURS Resulted Assessment/Plan Assessment/Plan Aortic dissections Sepsis with recovered shock Sinus node disease with bradycardia Hx pacemaker explant Ischemic cardiomyopathy - hx CABG? Paroxysmal Atrial Fib Respiratory failure with trach Hx thoracic aortic aneurysm repair ESRD Anemia - worse today Will advance current dose of beta flori (with hold parameter). 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 HD/UF per renal Needs higher level of care ultimately for repair of aortic dissection, although may not be a surgical candidate Deni Willams MD Mar 20, 2020 21:58
[2020-03-21] VITALS (7 sets, daily range): BP systolic 120–148; BP diastolic 55–76
--- NOTE | 2020-03-21 | NUR ---
NURSE NOTES: Patient resting at this time. Patient vitals stable. Patient repositioned for comfort. Patient blood glucose 78 and juice given via gtube. RN will continue to monitor.
[2020-03-21] MEDS: Sucralfate 1gm tab GT SCH ×5 (00:20→23:01)
[2020-03-21] MEDS: Renvela 800mg Pkt GT SCH ×4 (00:20→16:59)
[2020-03-21 05:44] LABS: HEMATOCRIT 25.6 % (37.0-47.0); HEMOGLOBIN 8.4 G/DL (12.0-16.0); MEAN CORPUSCULAR VOLUME 88 FL (80-99); PLATELET COUNT 87 K/UL (150-450); RED CELL DISTRIBUTION WIDTH 14.4 % (11.6-14.8); WHITE BLOOD COUNT 5.2 K/UL (4.8-10.8)
[2020-03-21] MEDS: traMADol 50mg tab GT SCH ×3 (06:10→21:18)
[2020-03-21] MEDS: Carvedilol 6.25mg Tab GT SCH ×3 (06:10→21:19)
[2020-03-21] MEDS: Metoclopramide 10mg/2ml Inj IVP SCH ×3 (06:10→21:19)
[2020-03-21] MEDS: Midodrine 10mg tab GT SCH ×3 (06:10→21:19)
[2020-03-21 06:26] LABS: ALBUMIN 1.2 G/DL (3.4-5.0); ALBUMIN/GLOBULIN RATIO 0.3 (1.0-2.7); BILIRUBIN,TOTAL 0.5 MG/DL (0.2-1.0); CALCIUM 6.3 MG/DL (8.5-10.1); CREATININE 2.5 MG/DL (0.55-1.30); PHOSPHORUS 2.3 MG/DL (2.5-4.9); POTASSIUM 3.8 MMOL/L (3.5-5.1)
--- NOTE | 2020-03-21 07:00 | NUR ---
NURSE NOTES: Received patient report from ERASMO Torres. Patient is AOx1 in bed asleep at this time. Patient on trach to vent AC 14 TV 500 FiO2 40% PEEP 5 Shiley 7. Patient with RFA 22G Patent and intact. No pain or discomfort noted at this time. Bed in lowest position, locked with side rails x2 up. Call light within reach.
--- NOTE | 2020-03-21 07:04 | NUR ---
RESPIRATORY NOTE: PT received on mechanical ventilation with current settings: AC/VC 14, 500,40%, +5. FiO2 was increased to 50% due to saturation dropping to 86%. Jigna ZIMMERMAN was made aware. Airway is midline, secure and patent. Vent circuit is secure and out of the way. Alarms are on and audible. No s/s of respiratory distress noted at this time. Will continue to closely monitor.
--- NOTE | 2020-03-21 07:16 | NUR ---
NURSE HAND-OFF REPORT: Important Events on Shift: Patient Status: Diet: Nephro @35ml/hr Pending Orders: Pending Results/Labs: Pending notification: Latest Vital Signs: Temperature 97.2 , Pulse 74 , B/P 124 /78 , Respiratory Rate 20 , O2 SAT 96 , Mechanical Ventilator, O2 Flow Rate . Vital Sign Comment: EKG Rhythm: Sinus Rhythm Rhythm change?: N Notified?: N -Dr Екатерина HATFIELD Response: No New Orders Received Latest Chavarria Fall Score: 50 Fall Risk: High Risk Safety Measures: Call light Within Reach, Bed Alarm Zone 2, Side Rails Side Rails x3, Bed position Low and Locked. Fall Precautions: Yellow Socks Report given to Sav .
[2020-03-21] MEDS: Aspirin Baby 81mg GT SCH (08:00)
[2020-03-21] MEDS: CEFTAZIDIME IV SCH ×2 (08:00→20:42)
[2020-03-21] MEDS: D5W IV SCH ×2 (08:00→20:42)
[2020-03-21] MEDS: AVIBACTAM IV SCH ×2 (08:00→20:42)
[2020-03-21] MEDS: Dakin's 0.125% Soln (Quarter Strength) 16oz TOPIC SCH (08:00)
[2020-03-21] MEDS: Pantoprazole Inj IVP SCH ×2 (08:00→20:21)
--- NOTE | 2020-03-21 08:39 | General Progress Note ---
Subjective ROS Limited/Unobtainable: No Allergies: Coded Allergies: No Known Allergies (Unverified , 10/10/17) Objective Last 24 Hour Vital Signs Date Time Temp Pulse Resp B/P (MAP) Pulse Ox O2 Delivery O2 Flow Rate FiO2 03/21/20 06:40 97.2 03/21/20 06:10 74 124/78 03/21/20 05:30 75 20 40 03/21/20 04:00 69 03/21/20 04:00 Mechanical Ventilator 03/21/20 04:00 98.4 73 18 120/63 (82) 96 03/21/20 04:00 40 03/21/20 03:30 65 18 40 03/21/20 01:30 66 18 40 03/21/20 00:00 40 03/21/20 00:00 97.9 70 18 125/64 (84) 98 03/21/20 00:00 Mechanical Ventilator 03/21/20 00:00 63 03/20/20 23:26 62 15 40 03/20/20 22:00 72 129/63 03/20/20 21:50 98.1 03/20/20 21:30 68 18 40 03/20/20 21:19 72 129/63 03/20/20 20:00 Mechanical Ventilator 03/20/20 20:00 68 03/20/20 20:00 40 03/20/20 20:00 98.1 72 20 129/63 (85) 97 03/20/20 19:30 67 16 40 03/20/20 16:00 73 03/20/20 16:00 40 03/20/20 16:00 98.0 68 20 130/60 (83) 98 03/20/20 16:00 Mechanical Ventilator 03/20/20 15:15 69 25 40 03/20/20 12:00 Mechanical Ventilator 03/20/20 12:00 40 03/20/20 12:00 97.0 70 18 134/56 (82) 97 03/20/20 11:44 67 03/20/20 11:13 65 18 40 l Intake and Output 03/20/20 03/21/20 19:00 07:00 Intake Total 690 ml 495 ml Output Total 200 ml Balance 490 ml 495 ml Intake Free Water 110 ml IV Total 160 ml 110 ml Tube Feeding 420 ml 385 ml Output Urine Total 200 ml Laboratory Tests 03/20/20 11:50: POC Whole Blood Glucose 86 03/20/20 18:08: POC Whole Blood Glucose 80 03/21/20 00:00: POC Whole Blood Glucose 78 03/21/20 05:20: White Blood Count 5.2, Red Blood Count 2.90L, Hemoglobin 8.4L, Hematocrit 25.6L, Mean Corpuscular Volume 88, Mean Corpuscular Hemoglobin 29.2, Mean Corpuscular Hemoglobin Concent 33.0, Red Cell Distribution Width 14.4, Platelet Count 87L, Mean Platelet Volume 9.0, Neutrophils (%) (Auto) , Lymphocytes (%) (Auto) , Monocytes (%) (Auto) , Eosinophils (%) (Auto) , Basophils (%) (Auto) , Sodium Level 130L, Potassium Level 3.8, Chloride Level 95L, Carbon Dioxide Level 24, Anion Gap 11, Blood Urea Nitrogen 85H, Creatinine 2.5H, Estimat Glomerular Filtration Rate 20.6, Glucose Level 88, Calcium Level 6.3L, Phosphorus Level 2.3L, Magnesium Level 1.9, Total Bilirubin 0.5, Aspartate Amino Transf (AST/SGOT) 35, Alanine Aminotransferase (ALT/SGPT) 23, Alkaline Phosphatase 88, Total Protein 4.9L, Albumin 1.2L, Globulin 3.7, Albumin/Globulin Ratio 0.3L 03/21/20 05:51: POC Whole Blood Glucose 81 Height (Feet): 5 Height (Inches): 3.00 Weight (Pounds): 128 General Appearance: lethargic EENT: normal ENT inspection Neck: supple Cardiovascular: normal rate Respiratory/Chest: decreased breath sounds Abdomen: hypoactive bowel sounds Extremities: non-tender Assessment/Plan Problem List: (1) Hx of CABG ICD Codes: Z95.1 - Presence of aortocoronary bypass graft SNOMED: 179330695, 556731065 (2) History of tracheostomy ICD Codes: Z98.890 - Other specified postprocedural states SNOMED: 819740744, 028522223 (3) PEG (percutaneous endoscopic gastrostomy) status ICD Codes: Z93.1 - Gastrostomy status SNOMED: 386570171, 842858702 (4) Renal failure ICD Codes: N19 - Unspecified kidney failure SNOMED: 27086435, 367220769 (5) Severe anemia ICD Codes: D64.9 - Anemia, unspecified SNOMED: 585101304 Assessment/Plan: s/p EGD gastric ulcer on ppi and carafate fu H&H s/p one unit PRBC 03/11/20, 03/15, 03/18/20 GTF per nurses no melena or hematochezia plan repeat cbc tomorow stool ob Inder Mccauley MD Mar 21, 2020 08:39
--- NOTE | 2020-03-21 14:07 | NUR ---
CASE MANAGEMENT:REVIEW 03/21/20 SI: SEPSIS. AC/CHR RENAL FAILURE VS: T 97.2 HR 72 RR 19 B/P 136/66 SATS 97% ON MECH VENT FIO2 50 LABS: NA 130 CL 95 BUN 85 CR 2.5 CA 6.3 PHOS 2.3 IS: IV DAPTOMYCIN Q48 IV CEFTAZIDIME Q12 IV PROTONIX Q12 ASA GT QD COREG GT Q12 CARAFATE GT Q6HRS : STEP DOWN UNIT DCP: FROM [facility]
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
--- NOTE | 2020-03-21 15:22 | Pulmonology Progress Note ---
Subjective ROS Limited/Unobtainable: No Interval Events: s/p paracentesis, 2.3L out; s/p 2 uniuts PRBC HEENT: Repors: no symptoms Respiratory: Reports: no symptoms Cardiovascular: Reports: no symptoms Gastrointestinal/Abdominal: Reports: diarrhea Allergies: Coded Allergies: No Known Allergies (Unverified , 10/10/17) All Systems: reviewed and negative except above Objective Last 24 Hour Vital Signs Date Time Temp Pulse Resp B/P (MAP) Pulse Ox O2 Delivery O2 Flow Rate FiO2 03/21/20 15:03 74 22 40 03/21/20 13:55 69 132/62 03/21/20 13:22 70 17 40 03/21/20 12:00 Mechanical Ventilator 03/21/20 12:00 50 03/21/20 12:00 67 03/21/20 12:00 97.2 72 19 136/66 (89) 97 03/21/20 10:36 94 21 40 03/21/20 08:35 67 15 50 03/21/20 08:00 50 03/21/20 08:00 97.4 76 20 148/66 (93) 95 03/21/20 08:00 68 03/21/20 08:00 Mechanical Ventilator 03/21/20 07:04 65 15 50 03/21/20 06:40 97.2 03/21/20 06:10 74 124/78 03/21/20 05:30 75 20 40 03/21/20 04:00 69 03/21/20 04:00 Mechanical Ventilator 03/21/20 04:00 98.4 73 18 120/63 (82) 96 03/21/20 04:00 40 03/21/20 03:30 65 18 40 03/21/20 01:30 66 18 40 03/21/20 00:00 40 03/21/20 00:00 97.9 70 18 125/64 (84) 98 03/21/20 00:00 Mechanical Ventilator 03/21/20 00:00 63 03/20/20 23:26 62 15 40 03/20/20 22:00 72 129/63 03/20/20 21:50 98.1 03/20/20 21:30 68 18 40 03/20/20 21:19 72 129/63 03/20/20 20:00 Mechanical Ventilator 2/5/21 20:00 68 03/20/20 20:00 40 03/20/20 20:00 98.1 72 20 129/63 (85) 97 03/20/20 19:30 67 16 40 03/20/20 16:00 73 03/20/20 16:00 40 03/20/20 16:00 98.0 68 20 130/60 (83) 98 03/20/20 16:00 Mechanical Ventilator Intake and Output 03/20/20 03/21/20 19:00 07:00 Intake Total 690 ml 495 ml Output Total 200 ml Balance 490 ml 495 ml Intake Free Water 110 ml IV Total 160 ml 110 ml Tube Feeding 420 ml 385 ml Output Urine Total 200 ml General Appearance: no acute distress HEENT: atraumatic Respiratory: lungs clear Cardiovascular: normal rate, regular rhythm Extremities: other - edema bilateral Laboratory Tests 03/20/20 18:08: POC Whole Blood Glucose 80 03/21/20 00:00: POC Whole Blood Glucose 78 03/21/20 05:20: White Blood Count 5.2, Red Blood Count 2.90L, Hemoglobin 8.4L, Hematocrit 25.6L, Mean Corpuscular Volume 88, Mean Corpuscular Hemoglobin 29.2, Mean Corpuscular Hemoglobin Concent 33.0, Red Cell Distribution Width 14.4, Platelet Count 87L, Mean Platelet Volume 9.0, Neutrophils (%) (Auto) , Lymphocytes (%) (Auto) , Monocytes (%) (Auto) , Eosinophils (%) (Auto) , Basophils (%) (Auto) , Sodium Level 130L, Potassium Level 3.8, Chloride Level 95L, Carbon Dioxide Level 24, Anion Gap 11, Blood Urea Nitrogen 85H, Creatinine 2.5H, Estimat Glomerular Filtration Rate 20.6, Glucose Level 88, Calcium Level 6.3L, Phosphorus Level 2.3L, Magnesium Level 1.9, Total Bilirubin 0.5, Aspartate Amino Transf (AST/SGOT) 35, Alanine Aminotransferase (ALT/SGPT) 23, Alkaline Phosphatase 88, Total Protein 4.9L, Albumin 1.2L, Globulin 3.7, Albumin/Globulin Ratio 0.3L 03/21/20 05:51: POC Whole Blood Glucose 81 Current Medications Medications (Trade) Dose Ordered Sig/Penny Route PRN Reason Start Time Stop Time Status Last Admin Dose Admin Acetaminophen (Tylenol) 650 mg Q6H PRN GT Mild Pain (Pain Scale 1-3) 03/02/20 22:30 04/01/20 22:29 03/18/20 11:14 Acetaminophen (Tylenol) 650 mg Q6H PRN GT Temp >100.5 03/03/20 03:00 04/01/20 22:29 Aspirin (ASA) 81 mg DAILY GT 03/07/20 09:00 04/21/20 08:59 03/21/20 08:00 Carvedilol (Coreg) 6.25 mg EVERY 8 HOURS GT 03/20/20 22:00 04/13/20 20:59 03/21/20 13:55 Ceftazidime/ Avibactam 0.94 gm/ Dextrose 110 ml @ 110 mls/hr Q12HR IV 03/06/20 13:00 03/21/20 22:00 03/21/20 08:00 Chlorhexidine Gluconate (Ling-Hex 2%) 1 applic DAILY@2000 TOPIC 03/03/20 20:00 06/01/20 19:59 03/20/20 20:00 Daptomycin 500 mg/ Sodium Chloride 50 ml @ 100 mls/hr Q48H IV 03/10/20 13:00 03/21/20 23:59 03/20/20 12:38 Dextrose (Dextrose 50%) 25 ml Q30M PRN IV Hypoglycemia 03/15/20 07:30 06/13/20 07:29 Dextrose (Dextrose 50%) 50 ml Q30M PRN IV Hypoglycemia 03/15/20 07:30 06/13/20 07:29 Hydralazine HCl (Apresoline) 25 mg Q6H PRN GT For High Blood Pressure 03/02/20 22:00 05/31/20 21:59 Hydromorphone HCl (Dilaudid) 0.5 mg Q4H PRN IVP For Pain 03/18/20 18:30 03/25/20 18:29 03/19/20 16:30 Loperamide HCl (Imodium) 2 mg Q6H PRN GT Diarrhea 03/06/20 12:45 04/05/20 12:44 03/06/20 13:01 Metoclopramide HCl (Reglan) 5 mg Q8HR IVP 03/04/20 11:45 04/03/20 11:44 03/21/20 13:55 Midodrine (Pro-Amatine) 10 mg EVERY 8 HOURS GT 03/17/20 22:00 06/01/20 12:59 03/21/20 13:56 Pantoprazole (Protonix) 40 mg EVERY 12 HOURS IVP 03/04/20 21:00 04/02/20 20:59 03/21/20 08:00 Polyethylene Glycol (Miralax) 17 gm BEDTIME PRN GT Constipation 03/02/20 22:00 04/01/20 21:59 Sevelamer Carbonate (Renvela) 1,600 mg Q6HR GT 03/19/20 12:00 06/17/20 11:59 03/21/20 12:25 Sodium Hypochlorite (Dakin's Quarter Strength) 1 applic DAILY TOPIC 03/04/20 09:00 04/03/20 08:59 03/21/20 08:00 Sucralfate (Carafate) 1 gm EVERY 6 HOURS GT 03/17/20 18:00 06/09/20 08:59 03/21/20 12:25 Tramadol HCl (Ultram) 50 mg EVERY 8 HOURS GT 03/19/20 14:00 03/26/20 13:59 03/21/20 13:56 Assessment/Plan Assessment/Plan 1. Chronic respiratory failure. - CT chest/abd/pelv: improving pleural effusion 2. Mechanical ventilation. - current setting at AC 14, Vt 500, FiO2 40%, PEEP 5 saturating well - continue current setting - suction secretions as needed 3. Chronic tracheostomy. 4. Chronic G-tube. 5. Anemia. - s/p transfusion - stool OB positive (03/02, 03/03) - off anticoags 6. Renal failure. 7. Leukocytosis and sepsis. - WBC now resolved 8. Sepsis UTI 9. Gram positive cocci bacteremia - f/u BCx negative for growth 10. COVID-19 negative 11. Diarrhea - C. diff neg 12. Hypoglycemia - resolved 13. Bradycardia - no urgent indication for pacemaker per cardio 14. Gastric ulcer - on PPI - GI following 15. Pleural effusion - small; insufficient volume for safe thoracentesis 16. thoracic aortic aneurysm - noted on CT imaging - pt needs emergent transfer out to [facility] for CT surgery evaluation, primary MD aware - Pt might not be a candidate for TAA repair 17. Ascites - s/p paracentesis (2/3), 2.3L out Elijah Stephen MD Mar 21, 2020 15:22
--- NOTE | 2020-03-21 18:18 | Nephrology Progress Note ---
Assessment/Plan Problem List: (1) Renal failure (ARF), acute on chronic (2) Anemia (3) Hyponatremia (4) Respiratory failure Assessment (1) JAVIER (acute kidney injury) (2) Renal failure (ARF), acute on chronic (3) Feeding by G-tube (4) Tracheostomy in place (5) Electrolyte imbalance, hyponatremia (6) Anemia, severe (7) Respiratory failure, acute and chronic (8) history of elevated lipase, pancreatitis (9) Elevated troponin I (10) Sepsis Plan March 21: Labs reviewed. Will arrange for dialysis tomorrow. Continue per consultants. Will hold phosphorus binders at this time. March 20: Labs reviewed. Patient was dialyzed yesterday. Electrolyte abnormalities corrected. Continue per current management. March 19: Due for dialysis today. Abnormal labs noted. All will be corrected after dialysis. March 18: Labs reviewed. Will dialyze tomorrow. Patient being transfused today. Patient due for abdominal paracentesis. We will keep the Norman in. Continue to monitor renal parameters and dialyze as needed. March 17: No CHEM panel done today. CBC reviewed. Hemoglobin is lowering. Dialyzed yesterday. Will check lab tomorrow. Continue per consultants. March 16: Labs reviewed. Due for dialysis today. Hemoglobin 10.2 today. Continue to monitor renal parameters. March 15: Labs reviewed. Dialyzed March 13. Due for dialysis March 16. Hemoglobin lower. 1 unit of packed RBCs ordered. Per orders. March 14: No labs drawn today. Dialyzed yesterday. Full code. Will check lab tomorrow. Dialysis as needed. March 13: Labs reviewed. Due for dialysis today. Patient remains full code. Continue per current management. March 12: Labs reviewed. Dialyzed yesterday. Due for dialysis tomorrow. Discussed with RN. Patient full code. Continue per current management. March 11: Labs reviewed. Dialyzed this morning. Phosphorus binders dose adjusted. Continue per consultants. Continue to monitor renal parameters. CT: Extensive thoracoabdominal aortic dissection March 10: Labs reviewed. Will order dialysis tomorrow. Phosphorus binders added. Continue per consultants. March 09: No chemistry panel done today. Patient dialyzed yesterday. On dextrose 10% for hypoglycemia. We will check labs tomorrow. Dialysis as needed. March 08: Labs reviewed. Will order dialysis today. Blood sugar low. D10 50 cc an hour started. Continue as is. March 07: Labs reviewed. Dialyzed March 05 and March 06. Continue to monitor renal parameters and hemoglobin. Abnormal electrolytes addressed. IV fluids stopped. Per orders. March 06: Labs reviewed. Dialyzed yesterday. Will reorder dialysis for today. Continue to monitor renal parameters. Hemoglobin 8.4. Patient full code. March 05: Labs reviewed. Patient did not receive dialysis until this morning. Proceed with dialysis. Continue to monitor renal parameters and hemoglobin and hematocrit. March 04: Labs reviewed. Hemoglobin lower. Patient actively bleeding. Was not dialyzed yesterday. Due for GI endoscopy. Continue fluid challenge. Transfusion as needed. Dialysis today. March 03: Labs reviewed. Dialysis ordered. Blood pressure medication all discontinued due to hypotensive state. Albumin bolus given. Continue to monitor renal parameters. Medication list reviewed. Midodrin for low blood pressure ordered Subjective ROS Limited/Unobtainable: Yes Objective Objective Last 24 Hour Vital Signs Date Time Temp Pulse Resp B/P (MAP) Pulse Ox O2 Delivery O2 Flow Rate FiO2 03/21/20 17:10 76 25 40 03/21/20 16:00 70 03/21/20 16:00 50 03/21/20 16:00 97.7 74 23 147/72 (97) 97 03/21/20 16:00 Mechanical Ventilator 03/21/20 15:03 74 22 40 03/21/20 13:55 69 132/62 03/21/20 13:22 70 17 40 03/21/20 12:00 Mechanical Ventilator 03/21/20 12:00 50 03/21/20 12:00 67 03/21/20 12:00 97.2 72 19 136/66 (89) 97 03/21/20 10:36 94 21 40 03/21/20 08:35 67 15 50 03/21/20 08:00 50 03/21/20 08:00 97.4 76 20 148/66 (93) 95 03/21/20 08:00 68 03/21/20 08:00 Mechanical Ventilator 03/21/20 07:04 65 15 50 03/21/20 06:40 97.2 03/21/20 06:10 74 124/78 03/21/20 05:30 75 20 40 03/21/20 04:00 69 03/21/20 04:00 Mechanical Ventilator 03/21/20 04:00 98.4 73 18 120/63 (82) 96 03/21/20 04:00 40 03/21/20 03:30 65 18 40 03/21/20 01:30 66 18 40 03/21/20 00:00 40 03/21/20 00:00 97.9 70 18 125/64 (84) 98 03/21/20 00:00 Mechanical Ventilator 03/21/20 00:00 63 03/20/20 23:26 62 15 40 03/20/20 22:00 72 129/63 03/20/20 21:50 98.1 03/20/20 21:30 68 18 40 03/20/20 21:19 72 129/63 03/20/20 20:00 Mechanical Ventilator 03/20/20 20:00 68 03/20/20 20:00 40 03/20/20 20:00 98.1 72 20 129/63 (85) 97 03/20/20 19:30 67 16 40 Intake and Output 03/20/20 03/21/20 19:00 07:00 Intake Total 690 ml 495 ml Output Total 200 ml Balance 490 ml 495 ml Intake Free Water 110 ml IV Total 160 ml 110 ml Tube Feeding 420 ml 385 ml Output Urine Total 200 ml Current Medications Medications (Trade) Dose Ordered Sig/Penny Route PRN Reason Start Time Stop Time Status Last Admin Dose Admin Acetaminophen (Tylenol) 650 mg Q6H PRN GT Mild Pain (Pain Scale 1-3) 03/02/20 22:30 04/01/20 22:29 03/18/20 11:14 Acetaminophen (Tylenol) 650 mg Q6H PRN GT Temp >100.5 03/03/20 03:00 04/01/20 22:29 Aspirin (ASA) 81 mg DAILY GT 03/07/20 09:00 04/21/20 08:59 03/21/20 08:00 Carvedilol (Coreg) 6.25 mg EVERY 8 HOURS GT 03/20/20 22:00 04/13/20 20:59 03/21/20 13:55 Ceftazidime/ Avibactam 0.94 gm/ Dextrose 110 ml @ 110 mls/hr Q12HR IV 03/06/20 13:00 03/21/20 22:00 03/21/20 08:00 Chlorhexidine Gluconate (Ling-Hex 2%) 1 applic DAILY@1999 TOPIC 03/03/20 20:00 06/01/20 19:59 03/20/20 20:00 Daptomycin 500 mg/ Sodium Chloride 50 ml @ 100 mls/hr Q48H IV 03/10/20 13:00 03/21/20 23:59 03/20/20 12:38 Dextrose (Dextrose 50%) 25 ml Q30M PRN IV Hypoglycemia 03/15/20 07:30 06/13/20 07:29 Dextrose (Dextrose 50%) 50 ml Q30M PRN IV Hypoglycemia 03/15/20 07:30 06/13/20 07:29 Hydralazine HCl (Apresoline) 25 mg Q6H PRN GT For High Blood Pressure 03/02/20 22:00 05/31/20 21:59 Hydromorphone HCl (Dilaudid) 0.5 mg Q4H PRN IVP For Pain 03/18/20 18:30 03/25/20 18:29 03/19/20 16:30 Loperamide HCl (Imodium) 2 mg Q6H PRN GT Diarrhea 03/06/20 12:45 04/05/20 12:44 03/06/20 13:01 Metoclopramide HCl (Reglan) 5 mg Q8HR IVP 03/04/20 11:45 04/03/20 11:44 03/21/20 13:55 Midodrine (Pro-Amatine) 10 mg EVERY 8 HOURS GT 03/17/20 22:00 06/01/20 12:59 03/21/20 13:56 Pantoprazole (Protonix) 40 mg EVERY 12 HOURS IVP 03/04/20 21:00 04/02/20 20:59 03/21/20 08:00 Polyethylene Glycol (Miralax) 17 gm BEDTIME PRN GT Constipation 03/02/20 22:00 04/01/20 21:59 Sevelamer Carbonate (Renvela) 1,600 mg Q6HR GT 03/19/20 12:00 06/17/20 11:59 03/21/20 16:59 Sodium Hypochlorite (Dakin's Quarter Strength) 1 applic DAILY TOPIC 03/04/20 09:00 04/03/20 08:59 03/21/20 08:00 Sucralfate (Carafate) 1 gm EVERY 6 HOURS GT 03/17/20 18:00 06/09/20 08:59 03/21/20 16:59 Tramadol HCl (Ultram) 50 mg EVERY 8 HOURS GT 03/19/20 14:00 03/26/20 13:59 03/21/20 13:56 Laboratory Tests 03/21/20 00:00: POC Whole Blood Glucose 78 03/21/20 05:20: White Blood Count 5.2, Red Blood Count 2.90L, Hemoglobin 8.4L, Hematocrit 25.6L, Mean Corpuscular Volume 88, Mean Corpuscular Hemoglobin 29.2, Mean Corpuscular Hemoglobin Concent 33.0, Red Cell Distribution Width 14.4, Platelet Count 87L, Mean Platelet Volume 9.0, Neutrophils (%) (Auto) , Lymphocytes (%) (Auto) , Monocytes (%) (Auto) , Eosinophils (%) (Auto) , Basophils (%) (Auto) , Sodium Level 130L, Potassium Level 3.8, Chloride Level 95L, Carbon Dioxide Level 24, Anion Gap 11, Blood Urea Nitrogen 85H, Creatinine 2.5H, Estimat Glomerular Filtration Rate 20.6, Glucose Level 88, Calcium Level 6.3L, Phosphorus Level 2.3L, Magnesium Level 1.9, Total Bilirubin 0.5, Aspartate Amino Transf (AST/SGOT) 35, Alanine Aminotransferase (ALT/SGPT) 23, Alkaline Phosphatase 88, Total Protein 4.9L, Albumin 1.2L, Globulin 3.7, Albumin/Globulin Ratio 0.3L 03/21/20 05:51: POC Whole Blood Glucose 81 Height (Feet): 5 Height (Inches): 3.00 Weight (Pounds): 128 General Appearance: no apparent distress EENT: other - Trach to vent Cardiovascular: normal rate Respiratory/Chest: decreased breath sounds Abdomen: distended Johnny Houston MD Mar 21, 2020 18:18
--- NOTE | 2020-03-21 18:43 | Cardiology Progress Note ---
Subjective DATE OF SERVICE: Mar 21, 2020 Heart rates remain in stable range; carvedilol dose advanced and tolerated, in setting of aortic dissection. BP parameters stable. CT scan now reveals extensive thoracoabd aortic dissection. Dialysis per renal; last session was 03/19/20 Pt is s/p paracentesis (50cc) Objective Last 24 Hour Vital Signs Date Time Temp Pulse Resp B/P (MAP) Pulse Ox O2 Delivery O2 Flow Rate FiO2 03/21/20 17:10 76 25 40 03/21/20 16:00 70 03/21/20 16:00 50 03/21/20 16:00 97.7 74 23 147/72 (97) 97 03/21/20 16:00 Mechanical Ventilator 03/21/20 15:03 74 22 40 03/21/20 13:55 69 132/62 03/21/20 13:22 70 17 40 03/21/20 12:00 Mechanical Ventilator 03/21/20 12:00 50 03/21/20 12:00 67 03/21/20 12:00 97.2 72 19 136/66 (89) 97 03/21/20 10:36 94 21 40 03/21/20 08:35 67 15 50 03/21/20 08:00 50 03/21/20 08:00 97.4 76 20 148/66 (93) 95 03/21/20 08:00 68 03/21/20 08:00 Mechanical Ventilator 03/21/20 07:04 65 15 50 03/21/20 06:40 97.2 03/21/20 06:10 74 124/78 03/21/20 05:30 75 20 40 03/21/20 04:00 69 03/21/20 04:00 Mechanical Ventilator 03/21/20 04:00 98.4 73 18 120/63 (82) 96 03/21/20 04:00 40 03/21/20 03:30 65 18 40 03/21/20 01:30 66 18 40 03/21/20 00:00 40 03/21/20 00:00 97.9 70 18 125/64 (84) 98 03/21/20 00:00 Mechanical Ventilator 03/21/20 00:00 63 03/20/20 23:26 62 15 40 03/20/20 22:00 72 129/63 03/20/20 21:50 98.1 03/20/20 21:30 68 18 40 03/20/20 21:19 72 129/63 03/20/20 20:00 Mechanical Ventilator 03/20/20 20:00 68 03/20/20 20:00 40 03/20/20 20:00 98.1 72 20 129/63 (85) 97 03/20/20 19:30 67 16 40 HEENT: Thin Trach secretions RHYTHM: NSR, SB LUNGS: bilateral rhonchi - few, trach site clean CARDIAC: normal rate, regular rhythm, normal S1 and S2 ABDOMEN: normal bowel sounds, non tender, soft, G-Tube intact EXTREMITIES: normal range of motion, non-tender, normal inspection Laboratory Tests Test 03/21/20 00:00 03/21/20 05:20 03/21/20 05:51 POC Whole Blood Glucose 78 MG/DL (74-106) 81 MG/DL (74-106) White Blood Count 5.2 K/UL (4.8-10.8) Red Blood Count 2.90 M/UL (4.20-5.40) L Hemoglobin 8.4 G/DL (12.0-16.0) L Hematocrit 25.6 % (37.0-47.0) L Mean Corpuscular Volume 88 FL (80-99) Mean Corpuscular Hemoglobin 29.2 PG (27.0-31.0) Mean Corpuscular Hemoglobin Concent 33.0 G/DL (32.0-36.0) Red Cell Distribution Width 14.4 % (11.6-14.8) Platelet Count 87 K/UL (150-450) L Mean Platelet Volume 9.0 FL (6.5-10.1) Neutrophils (%) (Auto) % (45.0-75.0) Lymphocytes (%) (Auto) % (20.0-45.0) Monocytes (%) (Auto) % (1.0-10.0) Eosinophils (%) (Auto) % (0.0-3.0) Basophils (%) (Auto) % (0.0-2.0) Sodium Level 130 MMOL/L (136-145) L Potassium Level 3.8 MMOL/L (3.5-5.1) Chloride Level 95 MMOL/L (98-107) L Carbon Dioxide Level 24 MMOL/L (21-32) Anion Gap 11 mmol/L (5-15) Blood Urea Nitrogen 85 mg/dL (7-18) H Creatinine 2.5 MG/DL (0.55-1.30) H Estimat Glomerular Filtration Rate 20.6 mL/min (>60) Glucose Level 88 MG/DL (74-106) Calcium Level 6.3 MG/DL (8.5-10.1) L Phosphorus Level 2.3 MG/DL (2.5-4.9) L Magnesium Level 1.9 MG/DL (1.8-2.4) Total Bilirubin 0.5 MG/DL (0.2-1.0) Aspartate Amino Transf (AST/SGOT) 35 U/L (15-37) Alanine Aminotransferase (ALT/SGPT) 23 U/L (12-78) Alkaline Phosphatase 88 U/L (46-116) Total Protein 4.9 G/DL (6.4-8.2) L Albumin 1.2 G/DL (3.4-5.0) L Globulin 3.7 g/dL Albumin/Globulin Ratio 0.3 (1.0-2.7) L Assessment/Plan Assessment/Plan Aortic dissections Sepsis with recovered shock Sinus node disease with bradycardia Hx pacemaker explant Ischemic cardiomyopathy - hx CABG? Paroxysmal Atrial Fib Respiratory failure with trach Hx thoracic aortic aneurysm repair ESRD Anemia HypoPO4 Will maintain current dose of beta flori (with hold parameter). 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 HD/UF per renal Needs higher level of care ultimately for repair of aortic dissection, although may not be a surgical candidate Deni Willams MD Mar 21, 2020 18:43
--- NOTE | 2020-03-21 19:18 | NUR ---
NURSE HAND-OFF REPORT: Important Events on Shift:NA Patient Status: Stable/Full Code Diet: Kathryn Vieraro @ 35ml/hr Pending Orders: NA Pending Results/Labs:NA Pending notification:NA Latest Vital Signs: Temperature 97.7 , Pulse 76 , B/P 147 /72 , Respiratory Rate 25 , O2 SAT 97 , Mechanical Ventilator, O2 Flow Rate . Vital Sign Comment: Stable EKG Rhythm: Sinus Rhythm Rhythm change?: N Notified?: N -Dr Екатерина HATFIELD Response: No New Orders Received Latest [place]av[place] Fall Score: 50 Fall Risk: High Risk Safety Measures: Call light Within Reach, Bed Alarm Zone 2, Side Rails Side Rails x3, Bed position Low and Locked. Fall Precautions: Yellow Socks Report given to ERASMO Lu.
--- NOTE | 2020-03-21 19:30 | NUR ---
COBY NOTES: Received pt from ERASMO Forte, pt is sleeping, pt has trach to ventilator AC 14 TV 500 PEEP 5 FIO2 45%, Pt is on continues heart monitoring. pt has g tube in place is working well. pt has Norman cath in place is working, pt has intact iv access LFA 22G SL. All needs attended, bed is locked and is in the lowest position, call light within easy reach. will continue to monitor.
[2020-03-21] MEDS: Dyna-Hex 2% Top Sol 2oz TOPIC SCH (20:25)
[2020-03-22 04:00] VITALS: BP 145/59
--- NOTE | 2020-03-22 05:00 | NUR ---
NURSE NOTES: wound treatment done as order and pt tolerated well. g tube dressing changed. will continue close monitoring.
[2020-03-22] MEDS: Carvedilol 6.25mg Tab GT SCH ×3 (05:08→22:07)
[2020-03-22] MEDS: traMADol 50mg tab GT SCH ×3 (05:08→22:08)
[2020-03-22] MEDS: Midodrine 10mg tab GT SCH ×3 (05:09→22:00)
[2020-03-22] MEDS: Metoclopramide 10mg/2ml Inj IVP SCH ×3 (05:09→22:12)
[2020-03-22] MEDS: Sucralfate 1gm tab GT SCH ×4 (05:09→23:10)
--- NOTE | 2020-03-22 06:18 | Hematology/Onc Progress Note ---
Assessment/Plan Assessment/Plan # Leukocytosis, now with likely bacteremia, as per ID care --> Cxr: : Large left abiola consolidation/effusion --> wbc 30-->40-->27->30->29-->35->32-->28-->21->10.2-->6.6 --> ABX angelo/vanc-->tobra/edson/vanc-->dapto/ceftazadine --> smear reviewed --> ID recs are noted # Anemia of chronic disease due to underlying chronic medical issues, multifactorial --> Anemia workup has been reviewed, cw acd --> No evidence of hemolysis is noted, peripheral smear has been reviewed. --> Hgb goal >7. Transfuse prn. --> Epogen required in prior --> Medications have been reviewed --> low threshold for gi evaluation in case has occult + --> hgb 1.9-->5-->7.1-->8.8-->8.1->7.5-> 8.2-->6.8-->9.2-->8.4 --> 1 unit prbc10/17, 2 units /, 03/02, 2/3 --> gi eval as needed # Elevated tumor markers, cea and ca 19.9 --> reviewed prior 01/27/20 cat scan a/p --> no masses noted, hold off further extensive w/u # Thrombocytopenia likely reactive v medication induced --> plt 200-->129->91-->86->100->78-->86-->87 --> transfuse as needed --> r/o dic, has been ruled out --> anticoag as needed # Coagulopathy with inr 1.5 --> consider vit k/ffp as needed preprocedure --> labs noted # Aortic dissection as seen on Ct ==> when stable, consider transfer hloc # JAVIER initially >2 --> on ivfs --> per renal # Elevated d-dimer, likely infection related --> venous duplex prior neg --> in prior neg # Dysphagia s/p peg --> as per gi # Thoracic aortic dissection --> s/p repair early 2017 # Chronic Resp failure -> s/p trach/vent # Psychiatric history on ativan/haldol # [place] # Dvt ppx --> scds The timing of this note does not necessarily reflect the time of the patient was seen. Greatly appreciate consultation. Subjective Constitutional: Denies: no symptoms, chills, fever, malaise, weakness, other HEENT: Denies: no symptoms, eye pain, blurred vision, tearing, double vision, ear pain, ear discharge, nose pain, nose congestion, throat pain, throat swelling, mouth pain, mouth swelling, other Cardiovascular: Denies: no symptoms, chest pain, edema, irregular heart rate, lightheadedness, palpitations, syncope, other Respiratory: Denies: no symptoms, cough, shortness of breath, SOB with excertion, SOB at rest, sputum, wheezing, other Genitourinary: Denies: no symptoms, burning, discharge, frequency, flank pain, hematuria, incontinence, pain, urgency, other Neurologic/Psychiatric: Denies: no symptoms, anxiety, depressed, emotional problems, headache, numbness, paresthesia, pre-existing deficit, seizure, tingling, tremors, weakness, other Endocrine: Denies: no symptoms, excessive sweating, flushing, intolerance to cold, intolerance to heat, increased hunger, increased thirst, increased urine, unexplained weight gain, unexplained weight loss, other Allergies: Coded Allergies: No Known Allergies (Unverified , 10/10/17) Subjective 03/04 for 1 unit transfusion this am as hgb remains low, wbc better 03/05 egd was done did show large nonbleeding gastric ulcer, high tumor markers 03/06 nv, with davis overnight, bp remains stable, with occult + stool, roman Rn 03/09 nv, remains stable, on vanc/tobra/edson, meds reviewed, no bleeding 03/10 nv, on vent, no bleeding, receiving abx, no night sweats 03/11 nv, roman surgeon and pcp, with aortic dissection to transfer [facility][1] when stable 03/12 nv, labs reviewed, wbc 21, hgb 7.5, otherwise is comfortable 03/13 nv, labs noted, no bleeding, wbc 13, hgb improved, meds reviewed 03/15 nv, meds reviewed, labs noted, no bleeding, on vent 03/16 nv/tv, peg, meds noted, hgb remains stable, improved to 10 2/2 s/p egd, with gastric ulceration noted, hgb stable 2/ labs noted, hgb 6.8, to get 1 unit prbc, meds reviewed 03/19 hgb 9.2, plt 78, no hemoptysis, is comfortable 03/20 labs reviewed, meds noted, no bleeding, dw rn 03/22 wound treatment, vent, with gtube, labs reviewed, roman rn Objective Objective Current Medications Medications (Trade) Dose Ordered Sig/Penny Route PRN Reason Start Time Stop Time Status Last Admin Dose Admin Acetaminophen (Tylenol) 650 mg Q6H PRN GT Mild Pain (Pain Scale 1-3) 03/02/20 22:30 04/01/20 22:29 03/18/20 11:14 Acetaminophen (Tylenol) 650 mg Q6H PRN GT Temp >100.5 03/03/20 03:00 04/01/20 22:29 Aspirin (ASA) 81 mg DAILY GT 03/07/20 09:00 04/21/20 08:59 03/21/20 08:00 Carvedilol (Coreg) 6.25 mg EVERY 8 HOURS GT 03/20/20 22:00 04/13/20 20:59 03/22/20 05:08 Chlorhexidine Gluconate (Ling-Hex 2%) 1 applic DAILY@1999 TOPIC 03/03/20 20:00 06/01/20 19:59 03/21/20 20:25 Dextrose (Dextrose 50%) 25 ml Q30M PRN IV Hypoglycemia 03/15/20 07:30 06/13/20 07:29 Dextrose (Dextrose 50%) 50 ml Q30M PRN IV Hypoglycemia 03/15/20 07:30 06/13/20 07:29 Hydralazine HCl (Apresoline) 25 mg Q6H PRN GT For High Blood Pressure 03/02/20 22:00 05/31/20 21:59 Hydromorphone HCl (Dilaudid) 0.5 mg Q4H PRN IVP For Pain 03/18/20 18:30 03/25/20 18:29 03/19/20 16:30 Loperamide HCl (Imodium) 2 mg Q6H PRN GT Diarrhea 03/06/20 12:45 04/05/20 12:44 03/06/20 13:01 Metoclopramide HCl (Reglan) 5 mg Q8HR IVP 03/04/20 11:45 04/03/20 11:44 03/22/20 05:09 Midodrine (Pro-Amatine) 10 mg EVERY 8 HOURS GT 03/17/20 22:00 06/01/20 12:59 03/22/20 05:09 Pantoprazole (Protonix) 40 mg EVERY 12 HOURS IVP 03/04/20 21:00 04/02/20 20:59 03/21/20 20:21 Polyethylene Glycol (Miralax) 17 gm BEDTIME PRN GT Constipation 03/02/20 22:00 04/01/20 21:59 Sodium Hypochlorite (Dakin's Quarter Strength) 1 applic DAILY TOPIC 03/04/20 09:00 04/03/20 08:59 03/21/20 08:00 Sucralfate (Carafate) 1 gm EVERY 6 HOURS GT 03/17/20 18:00 06/09/20 08:59 03/22/20 05:09 Tramadol HCl (Ultram) 50 mg EVERY 8 HOURS GT 03/19/20 14:00 03/26/20 13:59 03/22/20 05:08 Last 24 Hour Vital Signs Date Time Temp Pulse Resp B/P (MAP) Pulse Ox O2 Delivery O2 Flow Rate FiO2 03/22/20 05:08 71 145/59 03/22/20 04:00 97.7 71 22 145/59 (87) 98 03/22/20 04:00 Mechanical Ventilator 03/22/20 04:00 45 03/22/20 03:31 67 03/22/20 01:23 71 18 40 03/22/20 00:00 45 03/21/20 23:50 Mechanical Ventilator 03/21/20 23:46 97.9 69 23 127/55 (79) 97 03/21/20 23:43 67 03/21/20 21:19 74 134/76 03/21/20 20:00 97.9 79 23 134/76 (95) 96 03/21/20 20:00 79 03/21/20 19:44 45 03/21/20 19:40 Mechanical Ventilator 03/21/20 19:18 71 14 40 03/21/20 17:10 76 25 40 03/21/20 16:00 70 03/21/20 16:00 50 03/21/20 16:00 97.7 74 23 147/72 (97) 97 03/21/20 16:00 Mechanical Ventilator 03/21/20 15:03 74 22 40 03/21/20 13:55 69 132/62 03/21/20 13:22 70 17 40 03/21/20 12:00 Mechanical Ventilator 03/21/20 12:00 50 03/21/20 12:00 67 03/21/20 12:00 97.2 72 19 136/66 (89) 97 03/21/20 10:36 94 21 40 03/21/20 08:35 67 15 50 03/21/20 08:00 50 03/21/20 08:00 97.4 76 20 148/66 (93) 95 03/21/20 08:00 68 03/21/20 08:00 Mechanical Ventilator 03/21/20 07:04 65 15 50 03/21/20 06:40 97.2 03/21/20 06:10 74 124/78 03/21/20 05:30 75 20 40 03/21/20 04:00 69 03/21/20 04:00 Mechanical Ventilator 03/21/20 04:00 98.4 73 18 120/63 (82) 96 03/21/20 04:00 40 03/21/20 03:30 65 18 40 03/21/20 01:30 66 18 40 03/21/20 00:00 40 03/21/20 00:00 97.9 70 18 125/64 (84) 98 03/21/20 00:00 Mechanical Ventilator 03/21/20 00:00 63 03/20/20 23:26 62 15 40 03/20/20 22:00 72 129/63 03/20/20 21:50 98.1 03/20/20 21:30 68 18 40 03/20/20 21:19 72 129/63 03/20/20 20:00 Mechanical Ventilator 03/20/20 20:00 68 03/20/20 20:00 40 03/20/20 20:00 98.1 72 20 129/63 (85) 97 03/20/20 19:30 67 16 40 03/20/20 16:00 73 03/20/20 16:00 40 03/20/20 16:00 98.0 68 20 130/60 (83) 98 03/20/20 16:00 Mechanical Ventilator 03/20/20 15:15 69 25 40 03/20/20 12:00 Mechanical Ventilator 03/20/20 12:00 40 03/20/20 12:00 97.0 70 18 134/56 (82) 97 03/20/20 11:44 67 03/20/20 11:13 65 18 40 03/20/20 08:09 73 143/70 03/20/20 08:00 70 03/20/20 08:00 97.2 74 20 150/64 (92) 96 03/20/20 08:00 40 03/20/20 08:00 Mechanical Ventilator 03/20/20 07:18 75 19 40 Intake and Output 03/21/20 03/22/20 19:00 07:00 Intake Total 530 ml 595 ml Output Total 300 ml Balance 530 ml 295 ml Intake Free Water 100 ml IV Total 110 ml 110 ml Tube Feeding 420 ml 385 ml Output Urine Total 300 ml # Bowel Movements 1 Labs Test 03/19/20 13:26 03/19/20 18:08 03/20/20 00:02 03/20/20 04:07 POC Whole Blood Glucose 98 MG/DL (74-106) 78 MG/DL (74-106) 89 MG/DL (74-106) White Blood Count 5.0 K/UL (4.8-10.8) Red Blood Count 3.16 M/UL (4.20-5.40) Hemoglobin 9.2 G/DL (12.0-16.0) Hematocrit 27.6 % (37.0-47.0) Mean Corpuscular Volume 87 FL (80-99) Mean Corpuscular Hemoglobin 29.1 PG (27.0-31.0) Mean Corpuscular Hemoglobin Concent 33.4 G/DL (32.0-36.0) Red Cell Distribution Width 14.6 % (11.6-14.8) Platelet Count 86 K/UL (150-450) Mean Platelet Volume 10.1 FL (6.5-10.1) Neutrophils (%) (Auto) % (45.0-75.0) Lymphocytes (%) (Auto) % (20.0-45.0) Monocytes (%) (Auto) % (1.0-10.0) Eosinophils (%) (Auto) % (0.0-3.0) Basophils (%) (Auto) % (0.0-2.0) Differential Total Cells Counted 100 Neutrophils % (Manual) 73 % (45-75) Lymphocytes % (Manual) 19 % (20-45) Monocytes % (Manual) 6 % (1-10) Eosinophils % (Manual) 0 % (0-3) Basophils % (Manual) 0 % (0-2) Band Neutrophils 2 % (0-8) Platelet Estimate Decreased Platelet Morphology Normal Anisocytosis 1+ Sodium Level 133 MMOL/L (136-145) Potassium Level 3.8 MMOL/L (3.5-5.1) Chloride Level 97 MMOL/L (98-107) Carbon Dioxide Level 26 MMOL/L (21-32) Anion Gap 10 mmol/L (5-15) Blood Urea Nitrogen 77 mg/dL (7-18) Creatinine 2.2 MG/DL (0.55-1.30) Estimat Glomerular Filtration Rate 23.9 mL/min (>60) Glucose Level 84 MG/DL (74-106) Calcium Level 6.6 MG/DL (8.5-10.1) Phosphorus Level 2.7 MG/DL (2.5-4.9) Magnesium Level 1.9 MG/DL (1.8-2.4) Total Bilirubin 0.5 MG/DL (0.2-1.0) Aspartate Amino Transf (AST/SGOT) 35 U/L (15-37) Alanine Aminotransferase (ALT/SGPT) 20 U/L (12-78) Alkaline Phosphatase 92 U/L (46-116) Total Creatine Kinase 216 U/L (26-308) Total Protein 5.0 G/DL (6.4-8.2) Albumin 1.3 G/DL (3.4-5.0) Globulin 3.7 g/dL Albumin/Globulin Ratio 0.4 (1.0-2.7) Test 03/20/20 05:38 03/20/20 11:50 03/20/20 18:08 03/21/20 00:00 POC Whole Blood Glucose 78 MG/DL (74-106) 86 MG/DL (74-106) 80 MG/DL (74-106) 78 MG/DL (74-106) Test 03/21/20 05:20 2/6/21 05:51 03/21/20 23:22 03/22/20 05:14 White Blood Count 5.2 K/UL (4.8-10.8) Red Blood Count 2.90 M/UL (4.20-5.40) Hemoglobin 8.4 G/DL (12.0-16.0) Hematocrit 25.6 % (37.0-47.0) Mean Corpuscular Volume 88 FL (80-99) Mean Corpuscular Hemoglobin 29.2 PG (27.0-31.0) Mean Corpuscular Hemoglobin Concent 33.0 G/DL (32.0-36.0) Red Cell Distribution Width 14.4 % (11.6-14.8) Platelet Count 87 K/UL (150-450) Mean Platelet Volume 9.0 FL (6.5-10.1) Neutrophils (%) (Auto) % (45.0-75.0) Lymphocytes (%) (Auto) % (20.0-45.0) Monocytes (%) (Auto) % (1.0-10.0) Eosinophils (%) (Auto) % (0.0-3.0) Basophils (%) (Auto) % (0.0-2.0) Sodium Level 130 MMOL/L (136-145) Potassium Level 3.8 MMOL/L (3.5-5.1) Chloride Level 95 MMOL/L (98-107) Carbon Dioxide Level 24 MMOL/L (21-32) Anion Gap 11 mmol/L (5-15) Blood Urea Nitrogen 85 mg/dL (7-18) Creatinine 2.5 MG/DL (0.55-1.30) Estimat Glomerular Filtration Rate 20.6 mL/min (>60) Glucose Level 88 MG/DL (74-106) Calcium Level 6.3 MG/DL (8.5-10.1) Phosphorus Level 2.3 MG/DL (2.5-4.9) Magnesium Level 1.9 MG/DL (1.8-2.4) Total Bilirubin 0.5 MG/DL (0.2-1.0) Aspartate Amino Transf (AST/SGOT) 35 U/L (15-37) Alanine Aminotransferase (ALT/SGPT) 23 U/L (12-78) Alkaline Phosphatase 88 U/L (46-116) Total Protein 4.9 G/DL (6.4-8.2) Albumin 1.2 G/DL (3.4-5.0) Globulin 3.7 g/dL Albumin/Globulin Ratio 0.3 (1.0-2.7) POC Whole Blood Glucose 81 MG/DL (74-106) Height (Feet): 5 Height (Inches): 3.00 Weight (Pounds): 128 Objective Physical Exam: Vitals: reviewed General: NAD HEENT: nc, at Neck: supple ++trach/vent Chest: clear breath sounds bilaterally Cardiovascular: RRR, no s3, s4 Abdomen: soft, nontender, nd +gtube Extremities: no cce, normal range of motion Neuro: alert Evan Muhammad MD Mar 22, 2020 06:18
[2020-03-22 06:43] LABS: HEMATOCRIT 23.1 % (37.0-47.0); HEMOGLOBIN 7.7 G/DL (12.0-16.0); MEAN CORPUSCULAR VOLUME 88 FL (80-99); PLATELET COUNT 82 K/UL (150-450); RED BLOOD COUNT 2.63 M/UL (4.20-5.40); RED CELL DISTRIBUTION WIDTH 13.9 % (11.6-14.8); WHITE BLOOD COUNT 5.3 K/UL (4.8-10.8)
--- NOTE | 2020-03-22 06:56 | NUR ---
NURSE HAND-OFF REPORT: Important Events on Shift:pt has schedule for HD today. Patient Status: Diet: Pending Orders: Pending Results/Labs: Pending MD notification: Latest Vital Signs: Temperature 97.7 , Pulse 71 , B/P 145 /59 , Respiratory Rate 22 , O2 SAT 98 , Mechanical Ventilator, O2 Flow Rate . Vital Sign Comment: EKG Rhythm: Sinus Rhythm Rhythm change?: N MD Notified?: N -Dr Екатерина HATFIELD Response: No New Orders Received Latest [place] Fall Score: 50 Fall Risk: High Risk Safety Measures: Call light Within Reach, Bed Alarm Zone 2, Side Rails Side Rails x3, Bed position Low and Locked. Fall Precautions: Yellow Socks Report given to . pt is awake and stable, no stress noted. endorsed plan of care. endorsed to F/U HD.
--- NOTE | 2020-03-22 07:13 | General Progress Note ---
Subjective ROS Limited/Unobtainable: No Allergies: Coded Allergies: No Known Allergies (Unverified , 10/10/17) Objective Last 24 Hour Vital Signs Date Time Temp Pulse Resp B/P (MAP) Pulse Ox O2 Delivery O2 Flow Rate FiO2 03/22/20 05:08 71 145/59 03/22/20 04:00 97.7 71 22 145/59 (87) 98 03/22/20 04:00 Mechanical Ventilator 03/22/20 04:00 45 03/22/20 03:31 67 03/22/20 01:23 71 18 40 03/22/20 00:00 45 03/21/20 23:50 Mechanical Ventilator 03/21/20 23:46 97.9 69 23 127/55 (79) 97 03/21/20 23:43 67 03/21/20 21:19 74 134/76 03/21/20 20:00 97.9 79 23 134/76 (95) 96 03/21/20 20:00 79 03/21/20 19:44 45 03/21/20 19:40 Mechanical Ventilator 03/21/20 19:18 71 14 40 03/21/20 17:10 76 25 40 03/21/20 16:00 70 03/21/20 16:00 50 03/21/20 16:00 97.7 74 23 147/72 (97) 97 03/21/20 16:00 Mechanical Ventilator 03/21/20 15:03 74 22 40 03/21/20 13:55 69 132/62 03/21/20 13:22 70 17 40 03/21/20 12:00 Mechanical Ventilator 03/21/20 12:00 50 03/21/20 12:00 67 03/21/20 12:00 97.2 72 19 136/66 (89) 97 03/21/20 10:36 94 21 40 03/21/20 08:35 67 15 50 03/21/20 08:00 50 03/21/20 08:00 97.4 76 20 148/66 (93) 95 03/21/20 08:00 68 03/21/20 08:00 Mechanical Ventilator Intake and Output 03/21/20 03/22/20 19:00 07:00 Intake Total 530 ml 595 ml Output Total 300 ml Balance 530 ml 295 ml Intake Free Water 100 ml IV Total 110 ml 110 ml Tube Feeding 420 ml 385 ml Output Urine Total 300 ml # Bowel Movements 1 Laboratory Tests 03/21/20 23:22: POC Whole Blood Glucose [Pending] 03/22/20 05:14: POC Whole Blood Glucose [Pending] 03/22/20 06:15: White Blood Count 5.3, Red Blood Count 2.63L, Hemoglobin 7.7L, Hematocrit 23.1L, Mean Corpuscular Volume 88, Mean Corpuscular Hemoglobin 29.2, Mean Corpuscular Hemoglobin Concent 33.4, Red Cell Distribution Width 13.9, Platelet Count 82L, Mean Platelet Volume 8.8, Neutrophils (%) (Auto) , Lymphocytes (%) (Auto) , Monocytes (%) (Auto) , Eosinophils (%) (Auto) , Basophils (%) (Auto) , Neutrophils % (Manual) [Pending], Lymphocytes % (Manual) [Pending], Platelet Estimate [Pending], Platelet Morphology [Pending] Height (Feet): 5 Height (Inches): 3.00 Weight (Pounds): 128 General Appearance: no apparent distress EENT: normal ENT inspection Neck: supple Cardiovascular: normal rate Respiratory/Chest: decreased breath sounds Abdomen: normal bowel sounds, non tender, soft Extremities: non-tender Assessment/Plan Problem List: (1) Hx of CABG ICD Codes: Z95.1 - Presence of aortocoronary bypass graft SNOMED: 620554648, 554996268 (2) History of tracheostomy ICD Codes: Z98.890 - Other specified postprocedural states SNOMED: 029794162, 519832763 (3) PEG (percutaneous endoscopic gastrostomy) status ICD Codes: Z93.1 - Gastrostomy status SNOMED: 619336910, 453415460 (4) Renal failure ICD Codes: N19 - Unspecified kidney failure SNOMED: 17540347, 066590429 (5) Severe anemia ICD Codes: D64.9 - Anemia, unspecified SNOMED: 711519394 Assessment/Plan: s/p EGD gastric ulcer on ppi and carafate fu H&H s/p one unit PRBC 03/11/20, 03/15, 03/18/20 GTF repeat drop in H&H plan repeat EGD tomorrow cbc in am Inder Mccauley MD Mar 22, 2020 07:13
--- NOTE | 2020-03-22 07:36 | NUR ---
NURSE NOTES: Received report from ERASMO Lu. Patient in bed resting, no active s/s cardiac, respiratory distress noticed at this time. Patient Aox0-1, open eyes spontaneously, unable to follow command. SR with HR 71. Patient Trach to vent Shiley 7 AC 14 TV 500 Fio2 45% PEEP 5 O2 sat 99%. GT feeding on Nephro @ 35ml/h. IV on left FA 22G, asymptomatic, patent, intact. HD cath Permacath on right upper chest, patent, intact. Dr. Mccauley made aware of Hgb level today, per MD order accordingly. Endorsed patient schedule for HD today. Bed in lowest position, side rails upx3, call light within reach, bed alarm on, Will continue to monitor.
[2020-03-22 08:00] VITALS: BP 129/63
[2020-03-22] MEDS: Pantoprazole Inj IVP SCH ×2 (08:13→20:11)
[2020-03-22] MEDS: Dakin's 0.125% Soln (Quarter Strength) 16oz TOPIC SCH (08:14)
[2020-03-22] MEDS: Aspirin Baby 81mg GT SCH (08:14)
--- NOTE | 2020-03-22 10:11 | Infectious Diseases Prog Note ---
Assessment/Plan 49yo F with: MDR Kleb pna bacteremia AMS Anemia to 1.9 on admission 03/02 Leukocytosis to 40, improving GPC bacteremia UTI Pneumonia c/b mod-large R pleural effusion and small L pleural effusion - compressive atelectasis Hypotension 03/02 BCx 1/2 +Staph epi, 12 +Staph haemolyticus (m/l skin colonizers) UA+, UCx >100k P.stuartii (S-angelo) & CRE P.mirablis (R-polyB/colistin, S- tobramycin, per [facility] is "intrinsically resistant to Avycaz/Zerbaxa" not clear why to me and they are unable to elaborate more) COVID rapid neg, PCR neg CXR: Tracheostomy again demonstrated. Interim placement of a right jugular tunneled dialysis catheter. There is infiltrate and volume loss in the left lung, particularly in the perihilar region, suprahilar region, and base. Consolidation at the lung base is similar. The perihilar and suprahilar region consolidation is new. The right lung pleural space are clear. C.dif neg 03/03 BCx NTD 03/06 BCx 2/2 +MDR Kleb pna (arnett-R, including R-polyB, colistin), 02/14 +E.faecium VRE (R-amp, S-linezolid) 03/08 BCx NTD 03/09 CT CAP: Very limited exam, as described, due to massive anasarca. This could limit visualization of the discrete fluid collection such as an abscess. Extensive thoracoabdominal aortic dissection, as described above. Current flap begins just distal to the left subclavian artery origin; per report, there is history of surgical repair so there may have been surgical repair of the ascending thoracic aorta. Bilateral pleural effusions, slightly smaller than on earlier exams. Extensive atelectasis as a result. Extensive pulmonary par enchymal disease as detailed above. This may reflect pneumonia or pulmonary edema or both. Evidence of pulmonary arterial hypertension, with dilatation of the pulmonary artery. Considerable ascites fluid. 03/11 Chest US: Small right, trace left pleural effusions, insufficient for safe thoracentesis AF Sepsis Leukocytosis Hypoxia on vent Pneumonia c/b L pleural effusion (recurrent, prior determined to be transudative) - s/p thora 01/21, 1050cc removed Volume overload, BNP >35,0000, likely 2/2 progressive CKD --> ESRD ?Pancreatitis, Lipase >2000 Acute anemia to 5s CONS bacteremia, ?contaminant Aflutter w/ RVR 01/13 BCx 2/2 +S. epi COVID PCR neg Flu neg CXR: Large left pleural effusion. Bilateral interstitial and airspace infiltrates versus edema MRSA nares neg 01/16 BCx NTD 01/17 BCx /2 +Staph auricularis (skin colonizer) 01/18 Resp cx +MDR CRE PsA (S-gent, I-colistin, R-polyB) (Intermediate to Zerbaxa, Resistant to Avycaz) 01/18 C.dif neg 01/18 CXR: Similar opacification of the left hemithorax likely representing combination of pleural effusion with atelectasis versus pneumonia/edema. Decreased but persistent hazy opacity throughout the right lung may represent edema versus infectious/inflammatory process. 01/20 BCx NTD 01/21 L thora 1050 cc removed, cx NTD 01/25 Wound cx from Gtube site +CRE Kleb pna (arnett-R) and MDR PsA (colonizers) 01/26 CT A/P: Limited exam, due to severe diffuse anasarca. Ascites. Bilateral pleural effusions. Basilar pulmonary atelectatic changes and consolidation. Gastrostomy. Atrophic left kidney with a nephroureteral stents again demonstrated. Possible retrococcygeal decubitus changes. Correlate with clinical findings, consider MRI if there is concern for sacral osteomyelitis. Right hip intertrochanteric fracture, also previously demonstrated. Left femoral dialysis catheter. Nonspecific right lobe liver lesion is unchanged, not well- demonstrated. ctasia bordering on aneurysmal dilatation and possible chronic dissection of the distal thoracic aorta, also previously described. JAVIER on CKD On previous admission Sep-Oct 2019 required HD for short period Going to start HD this admission again R/o COVID 01/14 COVID PCR neg 12/29 neg at [facility] per report H/o UTI 10/15 u/a wbc 30-40, nit neg, leuk +3; ucx ESBL P. mirablis, ESBL M. morganii //20 u/a wbc tnct, nit neg, leuk +3; ucx >100k MDR P. stuarti (S Ceftriaxone, Meropenem) 8/25 u/a wbc tnct, nit neg, leuk ; ucx >100k VRE 10/15/19 u/a wbc tnct; ucx >100k ESBL P. stuarti (S ertapenem, aztreonam) H/o transudative pleural effusion 11/28 Sp Thora (w: 169, PMN: 2%, L: 49% , LDH: 57, prot 2.5); cx Neg H/o PNA 10/15/19 Resp cx ESBL P. mirabilis, MDR P.a. (S only to Gent) 09/22 Resp cx + MDR PsA (S-gent; I-colistin; R-levofloxacin, Zosyn, angelo) 09/16/19 Sp cx ESBL P. mirablis H/o PPM site (pocket) infection and pocket abscess 2ry to S. epi-11/2018, sp >6weeks IV vancomycin 11/27 SP ABBIE: no evidence for vegetation on any of the valves 11/26/18 SP PPM removal: OR findings:The fibrous capsule enclosing the generator was then opened and there was a [id number] amount of yellowish fluid drainage. The generator was then removed.Atrial and ventricular leads were detached. The necrotic tissue of the pocket was then removed and the pocket was flushed with an antibiotic solution. Capsule, wound tissue and lead tip cx: Neg 2d echo: no vegetation seen US chest: 4.6 x 3.4 x 0.9 cm hypoechoic/anechoic area overlying left chest pacemaker power pack. This could represent either a discrete fluid collection or a focal area of very edematous tissue. Infected fluid pocket also possible. 11/18 Bcx 3/4 S. epi; 11/20 Bcx neg; 11/24 Bcx Neg; 11/27 Bcx Neg CAD s/p CABG GERD/gastritis Afib HTN Dysphagia sp GT Aortic dissection s/p repair 2017 S/p PPM Parkinson's Disease Schizophrenia Anxiety COPD Chronic resp failure s/p trach Hx of tracheal bleeding [place] resident ([facility]) VRE and MRSA colonized Plan: Stop daptomycin #12 given transient VRE bacteremia, sepsis - will need 14 day course from neg BCx 03/08, end date 03/21 CK on 03/20 = 216 Stop Avycaz #16 given MDR Kleb pna bacteremia - will need 14 day course from neg BCx 03/08, end date 03/21 Monitor off abx Appreciate Surgery input on thoracic aortic aneurysm noted on CT imaging - d/w Dr. Saavedra Pt needs emergent transfer out to [facility] for CT surgery evaluation, primary MD aware Given somewhat transient MDR Kleb pna bacteremia (was not on admission BCx and cleared rapidly after positive BCx), no current indication to remove Permacath as less likely 2/2 line infection and more likely 2/2 gut translocation in setting of GIB, though if leukocytosis persists despite appropriate abx, then will have to reconsider. F/u 03/06 BCx +MDR Kleb pna - need sensi to Avycaz/Zerbaxa (d/w lab, will perform) Trend Hg, GIB Trend BP, WBC 03/16 SP tobramycin IV #10 for resistant UTI 03/10/20 SP edson #4 empiric, vanco #9 01/31 SP angelo/inh tobra #10 for pna 01/23 SP vanco IV #10 given CONS/GPC bacteremia 01/16 SP Zosyn #2 01/14 SP dex 10mg in ED 12/10 SP IV Gentamycin #10 12/07 SP Meropenem #10 12/01 SP IV Vancomycin #5 11/28 Sp Cefepime #2 and IV Gentamycin x1 Monitor CBC/CMP Monitor temp curve, hemodynamics Monitor resp status D/w RN Thank you for this consult. [facility] will continue to follow. Subjective Allergies: Coded Allergies: No Known Allergies (Unverified , 10/10/17) AF NAD on vent 40% PEEP 5 WBC 5.3 Objective Last 24 Hour Vital Signs Date Time Temp Pulse Resp B/P (MAP) Pulse Ox O2 Delivery O2 Flow Rate FiO2 03/22/20 08:00 40 03/22/20 08:00 97.7 65 18 129/63 (85) 99 03/22/20 08:00 Mechanical Ventilator 03/22/20 05:08 71 145/59 03/22/20 04:00 97.7 71 22 145/59 (87) 98 03/22/20 04:00 Mechanical Ventilator 03/22/20 04:00 45 03/22/20 03:31 67 03/22/20 01:23 71 18 40 03/22/20 00:00 45 03/21/20 23:50 Mechanical Ventilator 03/21/20 23:46 97.9 69 23 127/55 (79) 97 03/21/20 23:43 67 03/21/20 21:19 74 134/76 03/21/20 20:00 97.9 79 23 134/76 (95) 96 03/21/20 20:00 79 03/21/20 19:44 45 03/21/20 19:40 Mechanical Ventilator 03/21/20 19:18 71 14 40 03/21/20 17:10 76 25 40 03/21/20 16:00 70 03/21/20 16:00 50 03/21/20 16:00 97.7 74 23 147/72 (97) 97 03/21/20 16:00 Mechanical Ventilator 03/21/20 15:03 74 22 40 03/21/20 13:55 69 132/62 03/21/20 13:22 70 17 40 03/21/20 12:00 Mechanical Ventilator 03/21/20 12:00 50 03/21/20 12:00 67 03/21/20 12:00 97.2 72 19 136/66 (89) 97 03/21/20 10:36 94 21 40 Height (Feet): 5 Height (Inches): 3.00 Weight (Pounds): 128 Gen: NAD HEENT: NCAT, trach Pulm: BL chest rise on vent Abd: Soft, NTND, +PEG Ext: No c/c/e Skin: No visible rashes Neuro: Awake, minimally interactive Lines: R chest Permacath dressing c/d/i Laboratory Tests Test 03/21/20 23:22 03/22/20 04:30 03/22/20 05:14 03/22/20 06:15 POC Whole Blood Glucose Pending Pending Stool Occult Blood Pending White Blood Count 5.3 K/UL (4.8-10.8) Red Blood Count 2.63 M/UL (4.20-5.40) L Hemoglobin 7.7 G/DL (12.0-16.0) L Hematocrit 23.1 % (37.0-47.0) L Mean Corpuscular Volume 88 FL (80-99) Mean Corpuscular Hemoglobin 29.2 PG (27.0-31.0) Mean Corpuscular Hemoglobin Concent 33.4 G/DL (32.0-36.0) Red Cell Distribution Width 13.9 % (11.6-14.8) Platelet Count 82 K/UL (150-450) L Mean Platelet Volume 8.8 FL (6.5-10.1) Neutrophils (%) (Auto) % (45.0-75.0) Lymphocytes (%) (Auto) % (20.0-45.0) Monocytes (%) (Auto) % (1.0-10.0) Eosinophils (%) (Auto) % (0.0-3.0) Basophils (%) (Auto) % (0.0-2.0) Differential Total Cells Counted 100 Neutrophils % (Manual) 87 % (45-75) H Lymphocytes % (Manual) 10 % (20-45) L Monocytes % (Manual) 2 % (1-10) Eosinophils % (Manual) 1 % (0-3) Basophils % (Manual) 0 % (0-2) Band Neutrophils 0 % (0-8) Platelet Estimate Decreased L Platelet Morphology Normal Hypochromasia 1+ Current Medications Medications (Trade) Dose Ordered Sig/Penny Route PRN Reason Start Time Stop Time Status Last Admin Dose Admin Acetaminophen (Tylenol) 650 mg Q6H PRN GT Mild Pain (Pain Scale 1-3) 03/02/20 22:30 04/01/20 22:29 03/18/20 11:14 Acetaminophen (Tylenol) 650 mg Q6H PRN GT Temp >100.5 03/03/20 03:00 04/01/20 22:29 Aspirin (ASA) 81 mg DAILY GT 03/07/20 09:00 04/21/20 08:59 03/21/20 08:00 Carvedilol (Coreg) 6.25 mg EVERY 8 HOURS GT 03/20/20 22:00 04/13/20 20:59 03/22/20 05:08 Chlorhexidine Gluconate (Ling-Hex 2%) 1 applic DAILY@1999 TOPIC 03/03/20 20:00 06/01/20 19:59 03/21/20 20:25 Dextrose (Dextrose 50%) 25 ml Q30M PRN IV Hypoglycemia 03/15/20 07:30 06/13/20 07:29 Dextrose (Dextrose 50%) 50 ml Q30M PRN IV Hypoglycemia 03/15/20 07:30 06/13/20 07:29 Hydralazine HCl (Apresoline) 25 mg Q6H PRN GT For High Blood Pressure 03/02/20 22:00 05/31/20 21:59 Hydromorphone HCl (Dilaudid) 0.5 mg Q4H PRN IVP For Pain 03/18/20 18:30 03/25/20 18:29 03/19/20 16:30 Loperamide HCl (Imodium) 2 mg Q6H PRN GT Diarrhea 03/06/20 12:45 04/05/20 12:44 03/06/20 13:01 Metoclopramide HCl (Reglan) 5 mg Q8HR IVP 03/04/20 11:45 04/03/20 11:44 03/22/20 05:09 Midodrine (Pro-Amatine) 10 mg EVERY 8 HOURS GT 03/17/20 22:00 06/01/20 12:59 03/22/20 05:09 Pantoprazole (Protonix) 40 mg EVERY 12 HOURS IVP 03/04/20 21:00 04/02/20 20:59 03/22/20 08:13 Polyethylene Glycol (Miralax) 17 gm BEDTIME PRN GT Constipation 03/02/20 22:00 04/01/20 21:59 Sodium Hypochlorite (Dakin's Quarter Strength) 1 applic DAILY TOPIC 03/04/20 09:00 04/03/20 08:59 03/22/20 08:14 Sucralfate (Carafate) 1 gm EVERY 6 HOURS GT 03/17/20 18:00 06/09/20 08:59 03/22/20 05:09 Tramadol HCl (Ultram) 50 mg EVERY 8 HOURS GT 03/19/20 14:00 03/26/20 13:59 03/22/20 05:08 Ro Pack M.D. Mar 22, 2020 10:11
--- NOTE | 2020-03-22 10:16 | Nephrology Progress Note ---
Assessment/Plan Problem List: (1) Renal failure (ARF), acute on chronic (2) Anemia (3) Hyponatremia (4) Respiratory failure Assessment (1) JAVIER (acute kidney injury) (2) Renal failure (ARF), acute on chronic (3) Feeding by G-tube (4) Tracheostomy in place (5) Electrolyte imbalance, hyponatremia (6) Anemia, severe (7) Respiratory failure, acute and chronic (8) history of elevated lipase, pancreatitis (9) Elevated troponin I (10) Sepsis Plan March 22: Labs reviewed. Due for dialysis today. Discussed with RN. Agree with discontinuation of the Norman catheter. Hemoglobin lower. Transfusion per printing worker supervisor. March 21: Labs reviewed. Will arrange for dialysis tomorrow. Continue per consultants. Will hold phosphorus binders at this time. March 20: Labs reviewed. Patient was dialyzed yesterday. Electrolyte abnormalities corrected. Continue per current management. March 19: Due for dialysis today. Abnormal labs noted. All will be corrected after dialysis. March 18: Labs reviewed. Will dialyze tomorrow. Patient being transfused today. Patient due for abdominal paracentesis. We will keep the Norman in. Continue to monitor renal parameters and dialyze as needed. March 17: No CHEM panel done today. CBC reviewed. Hemoglobin is lowering. Dialyzed yesterday. Will check lab tomorrow. Continue per consultants. March 16: Labs reviewed. Due for dialysis today. Hemoglobin 10.2 today. Continue to monitor renal parameters. March 15: Labs reviewed. Dialyzed March 13. Due for dialysis March 16. Hemoglobin lower. 1 unit of packed RBCs ordered. Per orders. March 14: No labs drawn today. Dialyzed yesterday. Full code. Will check lab tomorrow. Dialysis as needed. March 13: Labs reviewed. Due for dialysis today. Patient remains full code. Continue per current management. March 12: Labs reviewed. Dialyzed yesterday. Due for dialysis tomorrow. Discussed with RN. Patient full code. Continue per current management. March 11: Labs reviewed. Dialyzed this morning. Phosphorus binders dose adjusted. Continue per consultants. Continue to monitor renal parameters. CT: Extensive thoracoabdominal aortic dissection March 10: Labs reviewed. Will order dialysis tomorrow. Phosphorus binders added. Continue per consultants. March 09: No chemistry panel done today. Patient dialyzed yesterday. On dextrose 10% for hypoglycemia. We will check labs tomorrow. Dialysis as needed. March 08: Labs reviewed. Will order dialysis today. Blood sugar low. D10 50 cc an hour started. Continue as is. March 07: Labs reviewed. Dialyzed March 05 and March 06. Continue to monitor renal parameters and hemoglobin. Abnormal electrolytes addressed. IV fluids stopped. Per orders. March 06: Labs reviewed. Dialyzed yesterday. Will reorder dialysis for today. Continue to monitor renal parameters. Hemoglobin 8.4. Patient full code. March 05: Labs reviewed. Patient did not receive dialysis until this morning. Proceed with dialysis. Continue to monitor renal parameters and hemoglobin and hematocrit. March 04: Labs reviewed. Hemoglobin lower. Patient actively bleeding. Was not dialyzed yesterday. Due for GI endoscopy. Continue fluid challenge. Transfusion as needed. Dialysis today. March 03: Labs reviewed. Dialysis ordered. Blood pressure medication all discontinued due to hypotensive state. Albumin bolus given. Continue to monitor renal parameters. Medication list reviewed. Midodrin for low blood pressure ordered Subjective ROS Limited/Unobtainable: Yes Objective Objective Last 24 Hour Vital Signs Date Time Temp Pulse Resp B/P (MAP) Pulse Ox O2 Delivery O2 Flow Rate FiO2 03/22/20 08:00 40 03/22/20 08:00 97.7 65 18 129/63 (85) 99 03/22/20 08:00 63 03/22/20 08:00 Mechanical Ventilator 03/22/20 05:08 71 145/59 03/22/20 04:00 97.7 71 22 145/59 (87) 98 03/22/20 04:00 Mechanical Ventilator 03/22/20 04:00 45 03/22/20 03:31 67 03/22/20 01:23 71 18 40 03/22/20 00:00 45 03/21/20 23:50 Mechanical Ventilator 03/21/20 23:46 97.9 69 23 127/55 (79) 97 03/21/20 23:43 67 03/21/20 21:19 74 134/76 03/21/20 20:00 97.9 79 23 134/76 (95) 96 03/21/20 20:00 79 03/21/20 19:44 45 03/21/20 19:40 Mechanical Ventilator 03/21/20 19:18 71 14 40 03/21/20 17:10 76 25 40 03/21/20 16:00 70 03/21/20 16:00 50 03/21/20 16:00 97.7 74 23 147/72 (97) 97 03/21/20 16:00 Mechanical Ventilator 03/21/20 15:03 74 22 40 03/21/20 13:55 69 132/62 03/21/20 13:22 70 17 40 03/21/20 12:00 Mechanical Ventilator 03/21/20 12:00 50 03/21/20 12:00 67 03/21/20 12:00 97.2 72 19 136/66 (89) 97 03/21/20 10:36 94 21 40 Intake and Output 03/21/20 03/22/20 19:00 07:00 Intake Total 530 ml 595 ml Output Total 300 ml Balance 530 ml 295 ml Intake Free Water 100 ml IV Total 110 ml 110 ml Tube Feeding 420 ml 385 ml Output Urine Total 300 ml # Bowel Movements 1 Current Medications Medications (Trade) Dose Ordered Sig/Penny Route PRN Reason Start Time Stop Time Status Last Admin Dose Admin Acetaminophen (Tylenol) 650 mg Q6H PRN GT Mild Pain (Pain Scale 1-3) 03/02/20 22:30 04/01/20 22:29 03/18/20 11:14 Acetaminophen (Tylenol) 650 mg Q6H PRN GT Temp >100.5 03/03/20 03:00 04/01/20 22:29 Aspirin (ASA) 81 mg DAILY GT 03/07/20 09:00 04/21/20 08:59 03/21/20 08:00 Carvedilol (Coreg) 6.25 mg EVERY 8 HOURS GT 03/20/20 22:00 04/13/20 20:59 03/22/20 05:08 Chlorhexidine Gluconate (Ling-Hex 2%) 1 applic DAILY@1999 TOPIC 03/03/20 20:00 06/01/20 19:59 03/21/20 20:25 Dextrose (Dextrose 50%) 25 ml Q30M PRN IV Hypoglycemia 03/15/20 07:30 06/13/20 07:29 Dextrose (Dextrose 50%) 50 ml Q30M PRN IV Hypoglycemia 03/15/20 07:30 06/13/20 07:29 Hydralazine HCl (Apresoline) 25 mg Q6H PRN GT For High Blood Pressure 03/02/20 22:00 05/31/20 21:59 Hydromorphone HCl (Dilaudid) 0.5 mg Q4H PRN IVP For Pain 03/18/20 18:30 03/25/20 18:29 03/19/20 16:30 Loperamide HCl (Imodium) 2 mg Q6H PRN GT Diarrhea 03/06/20 12:45 04/05/20 12:44 03/06/20 13:01 Metoclopramide HCl (Reglan) 5 mg Q8HR IVP 03/04/20 11:45 04/03/20 11:44 03/22/20 05:09 Midodrine (Pro-Amatine) 10 mg EVERY 8 HOURS GT 03/17/20 22:00 06/01/20 12:59 03/22/20 05:09 Pantoprazole (Protonix) 40 mg EVERY 12 HOURS IVP 03/04/20 21:00 04/02/20 20:59 03/22/20 08:13 Polyethylene Glycol (Miralax) 17 gm BEDTIME PRN GT Constipation 03/02/20 22:00 04/01/20 21:59 Sodium Hypochlorite (Dakin's Quarter Strength) 1 applic DAILY TOPIC 03/04/20 09:00 04/03/20 08:59 03/22/20 08:14 Sucralfate (Carafate) 1 gm EVERY 6 HOURS GT 03/17/20 18:00 06/09/20 08:59 03/22/20 11:20 Tramadol HCl (Ultram) 50 mg EVERY 8 HOURS GT 03/19/20 14:00 03/26/20 13:59 03/22/20 05:08 Laboratory Tests 03/21/20 23:22: POC Whole Blood Glucose [Pending] 03/22/20 04:30: Stool Occult Blood [Pending] 03/22/20 05:14: POC Whole Blood Glucose [Pending] 03/22/20 06:15: White Blood Count 5.3, Red Blood Count 2.63L, Hemoglobin 7.7L, Hematocrit 23.1L, Mean Corpuscular Volume 88, Mean Corpuscular Hemoglobin 29.2, Mean Corpuscular Hemoglobin Concent 33.4, Red Cell Distribution Width 13.9, Platelet Count 82L, Mean Platelet Volume 8.8, Neutrophils (%) (Auto) , Lymphocytes (%) (Auto) , Monocytes (%) (Auto) , Eosinophils (%) (Auto) , Basophils (%) (Auto) , Differential Total Cells Counted 100, Neutrophils % (Manual) 87H, Lymphocytes % (Manual) 10L, Monocytes % (Manual) 2, Eosinophils % (Manual) 1, Basophils % (Manual) 0, Band Neutrophils 0, Platelet Estimate DecreasedL, Platelet Morphology Normal, Hypochromasia 1+ Height (Feet): 5 Height (Inches): 3.00 Weight (Pounds): 128 General Appearance: no apparent distress EENT: other - Trach to vent Cardiovascular: normal rate Respiratory/Chest: decreased breath sounds Abdomen: distended Johnny Houston MD Mar 22, 2020 10:16
--- NOTE | 2020-03-22 11:02 | NUR ---
NURSE NOTES: Called [facility] Nephrology tele : [phone], spoke with Ramo and informed patient scheduled HD today per Dr. Rojo.
--- NOTE | 2020-03-22 11:15 | Pulmonology Progress Note ---
Subjective ROS Limited/Unobtainable: No Interval Events: s/p paracentesis, 2.3L out; s/p 2 uniuts PRBC HEENT: Repors: no symptoms Respiratory: Reports: no symptoms Cardiovascular: Reports: no symptoms Gastrointestinal/Abdominal: Reports: diarrhea Allergies: Coded Allergies: No Known Allergies (Unverified , 10/10/17) All Systems: reviewed and negative except above Objective Last 24 Hour Vital Signs Date Time Temp Pulse Resp B/P (MAP) Pulse Ox O2 Delivery O2 Flow Rate FiO2 03/22/20 08:00 40 03/22/20 08:00 97.7 65 18 129/63 (85) 99 03/22/20 08:00 63 03/22/20 08:00 Mechanical Ventilator 03/22/20 07:10 62 17 40 03/22/20 05:08 71 145/59 03/22/20 04:00 97.7 71 22 145/59 (87) 98 03/22/20 04:00 Mechanical Ventilator 03/22/20 04:00 45 03/22/20 03:31 67 03/22/20 01:23 71 18 40 03/22/20 00:00 45 03/21/20 23:50 Mechanical Ventilator 03/21/20 23:46 97.9 69 23 127/55 (79) 97 03/21/20 23:43 67 03/21/20 21:19 74 134/76 03/21/20 20:00 97.9 79 23 134/76 (95) 96 03/21/20 20:00 79 03/21/20 19:44 45 03/21/20 19:40 Mechanical Ventilator 03/21/20 19:18 71 14 40 03/21/20 17:10 76 25 40 03/21/20 16:00 70 03/21/20 16:00 50 03/21/20 16:00 97.7 74 23 147/72 (97) 97 03/21/20 16:00 Mechanical Ventilator 03/21/20 15:03 74 22 40 03/21/20 13:55 69 132/62 03/21/20 13:22 70 17 40 03/21/20 12:00 Mechanical Ventilator 03/21/20 12:00 50 03/21/20 12:00 67 03/21/20 12:00 97.2 72 19 136/66 (89) 97 Intake and Output 03/21/20 03/22/20 19:00 07:00 Intake Total 530 ml 595 ml Output Total 300 ml Balance 530 ml 295 ml Intake Free Water 100 ml IV Total 110 ml 110 ml Tube Feeding 420 ml 385 ml Output Urine Total 300 ml # Bowel Movements 1 General Appearance: no acute distress HEENT: atraumatic Respiratory: lungs clear Cardiovascular: normal rate, regular rhythm Extremities: other - edema bilateral Laboratory Tests 03/21/20 23:22: POC Whole Blood Glucose [Pending] 03/22/20 04:30: Stool Occult Blood [Pending] 03/22/20 05:14: POC Whole Blood Glucose [Pending] 03/22/20 06:15: White Blood Count 5.3, Red Blood Count 2.63L, Hemoglobin 7.7L, Hematocrit 23.1L, Mean Corpuscular Volume 88, Mean Corpuscular Hemoglobin 29.2, Mean Corpuscular Hemoglobin Concent 33.4, Red Cell Distribution Width 13.9, Platelet Count 82L, Mean Platelet Volume 8.8, Neutrophils (%) (Auto) , Lymphocytes (%) (Auto) , Monocytes (%) (Auto) , Eosinophils (%) (Auto) , Basophils (%) (Auto) , Differential Total Cells Counted 100, Neutrophils % (Manual) 87H, Lymphocytes % (Manual) 10L, Monocytes % (Manual) 2, Eosinophils % (Manual) 1, Basophils % (Manual) 0, Band Neutrophils 0, Platelet Estimate DecreasedL, Platelet Morphology Normal, Hypochromasia 1+ Current Medications Medications (Trade) Dose Ordered Sig/Penny Route PRN Reason Start Time Stop Time Status Last Admin Dose Admin Acetaminophen (Tylenol) 650 mg Q6H PRN GT Mild Pain (Pain Scale 1-3) 03/02/20 22:30 04/01/20 22:29 03/18/20 11:14 Acetaminophen (Tylenol) 650 mg Q6H PRN GT Temp >100.5 03/03/20 03:00 04/01/20 22:29 Aspirin (ASA) 81 mg DAILY GT 03/07/20 09:00 04/21/20 08:59 03/21/20 08:00 Carvedilol (Coreg) 6.25 mg EVERY 8 HOURS GT 03/20/20 22:00 04/13/20 20:59 03/22/20 05:08 Chlorhexidine Gluconate (Ling-Hex 2%) 1 applic DAILY@2000 TOPIC 03/03/20 20:00 06/01/20 19:59 03/21/20 20:25 Dextrose (Dextrose 50%) 25 ml Q30M PRN IV Hypoglycemia 03/15/20 07:30 06/13/20 07:29 Dextrose (Dextrose 50%) 50 ml Q30M PRN IV Hypoglycemia 03/15/20 07:30 06/13/20 07:29 Hydralazine HCl (Apresoline) 25 mg Q6H PRN GT For High Blood Pressure 03/02/20 22:00 05/31/20 21:59 Hydromorphone HCl (Dilaudid) 0.5 mg Q4H PRN IVP For Pain 03/18/20 18:30 03/25/20 18:29 03/19/20 16:30 Loperamide HCl (Imodium) 2 mg Q6H PRN GT Diarrhea 03/06/20 12:45 04/05/20 12:44 03/06/20 13:01 Metoclopramide HCl (Reglan) 5 mg Q8HR IVP 03/04/20 11:45 04/03/20 11:44 03/22/20 05:09 Midodrine (Pro-Amatine) 10 mg EVERY 8 HOURS GT 03/17/20 22:00 06/01/20 12:59 03/22/20 05:09 Pantoprazole (Protonix) 40 mg EVERY 12 HOURS IVP 03/04/20 21:00 04/02/20 20:59 03/22/20 08:13 Polyethylene Glycol (Miralax) 17 gm BEDTIME PRN GT Constipation 03/02/20 22:00 04/01/20 21:59 Sodium Hypochlorite (Dakin's Quarter Strength) 1 applic DAILY TOPIC 03/04/20 09:00 04/03/20 08:59 03/22/20 08:14 Sucralfate (Carafate) 1 gm EVERY 6 HOURS GT 03/17/20 18:00 06/09/20 08:59 03/22/20 05:09 Tramadol HCl (Ultram) 50 mg EVERY 8 HOURS GT 03/19/20 14:00 03/26/20 13:59 03/22/20 05:08 Assessment/Plan Assessment/Plan 1. Chronic respiratory failure. - CT chest/abd/pelv: improving pleural effusion 2. Mechanical ventilation. - current setting at AC 14, Vt 500, FiO2 40%, PEEP 5 saturating well - continue current setting - suction secretions as needed 3. Chronic tracheostomy. 4. Chronic G-tube. 5. Anemia. - s/p transfusion - stool OB positive (03/02, 03/03) - off anticoags 6. Renal failure. 7. Leukocytosis and sepsis. - WBC now resolved 8. Sepsis UTI 9. Gram positive cocci bacteremia - f/u BCx negative for growth 10. COVID-19 negative 11. Diarrhea - C. diff neg 12. Hypoglycemia - resolved 13. Bradycardia - no urgent indication for pacemaker per cardio 14. Gastric ulcer - on PPI - GI following 15. Pleural effusion - small; insufficient volume for safe thoracentesis 16. thoracic aortic aneurysm - noted on CT imaging - pt needs emergent transfer out to [facility] for CT surgery evaluation, primary MD aware - Pt might not be a candidate for TAA repair 17. Ascites - s/p paracentesis (2/3), 2.3L out Elijah Stephen MD Mar 22, 2020 11:15
[2020-03-22 12:00] VITALS: BP 129/64
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
--- NOTE | 2020-03-22 15:30 | NUR ---
NURSE NOTES: HD nurse at the bedside, HD initiated, no s/s hemodynamic noted at this time, will continue to follow up.
[2020-03-22 16:00] VITALS: BP 133/50
--- NOTE | 2020-03-22 19:00 | NUR ---
NURSE NOTES: Received report from ERASMO Lindsay. Pt is alert by name, oriented x 1. Pt non- verbal,. No pain noted. no facial grimace noted. Trach to vent with settings as ordered,fio2- 40%. Per Am nurse hgb 7.7- no order for transfusion , but for EGD for german, consent signed per AM Nurse. NPO MN. Dialysis done today. No hypotension noted. No bleeding noted at this time. Oral care done. Bed in lowest position, call light within reach. Continue to plan of care.
--- NOTE | 2020-03-22 19:16 | NUR ---
NURSE HAND-OFF REPORT: Important Events on Shift: HD 2L out Patient Status: stable/guarded Diet: Nephro, NPO at midnight Pending Orders: na Pending Results/Labs:na Pending notification:na Latest Vital Signs: Temperature 94.6 , Pulse 67 , B/P 133 /50 , Respiratory Rate 18 , O2 SAT 100 , Mechanical Ventilator, O2 Flow Rate . Vital Sign Comment: stable EKG Rhythm: Sinus Rhythm Rhythm change?: N Notified?: N -Dr Екатерина HATFIELD Response: No New Orders Received Latest Chavarria Fall Score: 50 Fall Risk: High Risk Safety Measures: Call light Within Reach, Bed Alarm Zone 2, Side Rails Side Rails x3, Bed position Low and Locked. Fall Precautions: Yellow Socks Report given to ERASMO Forte.
--- NOTE | 2020-03-22 19:57 | NUR ---
NURSE NOTES: Per Am nurse and MD notes. pt has ct result of Thoracic aortic dissection but per MD notes, pt is not candidate for repair, but may need a transfer to higher acuity hosp. Phosporus if 2.3 and Sodium 130- MD aware. (Dr. Houston).
[2020-03-22 20:00] VITALS: BP 136/63
[2020-03-22] MEDS: Dyna-Hex 2% Top Sol 2oz TOPIC SCH (20:11)
--- NOTE | 2020-03-22 23:43 | NUR ---
NURSE NOTES: pT bP 145/70. No pain noted. O2 sat -98%. Continue to plan of care.
[2020-03-23] VITALS: BP 142/67
--- NOTE | 2020-03-23 01:27 | NUR ---
NURSE NOTES: Noted BS- 65 mg/dl, treatment per protocol. Dr. Muhammad made aware, waiting for IVF order, Pt NPO MN. Awaiting for response.
--- NOTE | 2020-03-23 01:38 | NUR ---
NURSE NOTES: Rechecked BS- 100mg/dl.
--- NOTE | 2020-03-23 01:42 | NUR ---
NURSE NOTES: No available rapid test for covid per lab.
--- NOTE | 2020-03-23 02:30 | NUR ---
NURSE NOTES: LVM to Dr. Mccauley and Dr. Muhammad. Awaiting for response.
[2020-03-23 04:00] VITALS: BP 130/70
--- NOTE | 2020-03-23 04:14 | NUR ---
NURSE NOTES: Cleaned pt, sponge bath given. Noted hemorroids will refer in AM. Noted excoriation in Gtube site. No hypotensive episodes noted, no hypoglycemic symptoms noted. Still awaiting for response from Dr. Mccauley and Dr. Muhammad.
[2020-03-23] MEDS: Sucralfate 1gm tab GT SCH ×3 (05:11→17:34)
[2020-03-23] MEDS: Carvedilol 6.25mg Tab GT SCH ×3 (05:11→21:48)
[2020-03-23] MEDS: traMADol 50mg tab GT SCH ×3 (05:12→21:49)
[2020-03-23] MEDS: Metoclopramide 10mg/2ml Inj IVP SCH ×3 (05:12→21:49)
[2020-03-23] MEDS: Midodrine 10mg tab GT SCH ×3 (05:12→21:48)
[2020-03-23] MEDS ORDERED: D5 1/2NS 1,000 ML IV SCH (05:30)
--- NOTE | 2020-03-23 06:25 | Pre-Procedure Note/Attestation ---
Pre-Procedure Note/Attestation Complete Prior to Procedure Planned Procedure: not applicable Procedure Narrative: egd Indications for Procedure Pre-Operative Diagnosis: gib Attestation I attest that I discussed the nature of the procedure; its benefits; risks and complications; and alternatives (and the risks and benefits of such alternatives), prior to the procedure, with the patient (or the patient's legal outbound call center representative). I attest that, if there was a reasonable possibility of needing a blood transfusion, the patient (or the patient's legal outbound call center representative) was given the [facility] standardized written summary, pursuant to the Deo Cash Blood Safety Act ([place] Health and Safety Code # 1645, as amended). I attest that I re-evaluated the patient just prior to the surgery and that there has been no change in the patient's H&P, except as documented below: Inder Mccauley MD Mar 23, 2020 06:25
--- NOTE | 2020-03-23 06:31 | Hematology/Onc Progress Note ---
Assessment/Plan Assessment/Plan # Leukocytosis, now with likely bacteremia, as per ID care --> Cxr: : Large left abiola consolidation/effusion --> wbc 30-->40-->27->30->29-->35->32-->28-->21->10.2-->6.6 --> ABX angelo/vanc-->tobra/edson/vanc-->dapto/ceftazadine --> smear reviewed --> ID recs are noted # Anemia of chronic disease due to underlying chronic medical issues, multifactorial --> Anemia workup has been reviewed, cw acd --> No evidence of hemolysis is noted, peripheral smear has been reviewed. --> Hgb goal >7. Transfuse prn. --> Epogen required in prior --> Medications have been reviewed --> low threshold for gi evaluation in case has occult + --> hgb 1.9-->5-->7.1-->8.8-->8.1->7.5-> 8.2-->6.8-->9.2-->8.4->7.7 --> 1 unit prbc10/17, 2 units /, /, 2/3 --> gi eval as needed # Elevated tumor markers, cea and ca 19.9 --> reviewed prior 01/27/20 cat scan a/p --> no masses noted, hold off further extensive w/u # Thrombocytopenia likely reactive v medication induced --> plt 200-->129->91-->86->100->78-->86-->87 --> transfuse as needed --> r/o dic, has been ruled out --> anticoag as needed # Coagulopathy with inr 1.5 --> consider vit k/ffp as needed preprocedure --> labs noted # Aortic dissection as seen on Ct ==> when stable, consider transfer hloc # JAVIER initially >2 --> on ivfs --> per renal # Elevated d-dimer, likely infection related --> venous duplex prior neg --> in prior neg # Dysphagia s/p peg --> as per gi # Thoracic aortic dissection --> s/p repair early 2017 # Chronic Resp failure -> s/p trach/vent # Psychiatric history on ativan/haldol # [place] resident # Dvt ppx --> scds The timing of this note does not necessarily reflect the time of the patient was seen. Greatly appreciate consultation. Subjective HEENT: Denies: no symptoms, eye pain, blurred vision, tearing, double vision, ear pain, ear discharge, nose pain, nose congestion, throat pain, throat swelling, mouth pain, mouth swelling, other Cardiovascular: Denies: no symptoms, chest pain, edema, irregular heart rate, lightheadedness, palpitations, syncope, other Respiratory: Denies: no symptoms, cough, shortness of breath, SOB with excertion, SOB at rest, sputum, wheezing, other Gastrointestinal/Abdominal: Denies: no symptoms, abdomen distended, abdominal pain, black stools, tarry stools, blood in stool, constipated, diarrhea, difficulty swallowing, nausea, poor appetite, poor fluid intake, rectal b leeding, vomiting, other Genitourinary: Denies: no symptoms, burning, discharge, frequency, flank pain, hematuria, incontinence, pain, urgency, other Neurologic/Psychiatric: Denies: no symptoms, anxiety, depressed, emotional problems, headache, numbness, paresthesia, pre-existing deficit, seizure, tingling, tremors, weakness, other Endocrine: Denies: no symptoms, excessive sweating, flushing, intolerance to cold, intolerance to heat, increased hunger, increased thirst, increased urine, unexplained weight gain, unexplained weight loss, other Hematologic/Lymphatic: Denies: no symptoms, anemia, easy bleeding, easy bruising, adenopathy, other Allergies: Coded Allergies: No Known Allergies (Unverified , 10/10/17) Subjective 03/04 for 1 unit transfusion this am as hgb remains low, wbc better 03/05 egd was done did show large nonbleeding gastric ulcer, high tumor markers 03/06 nv, with davis overnight, bp remains stable, with occult + stool, roman Rn 03/09 nv, remains stable, on vanc/tobra/edson, meds reviewed, no bleeding 03/10 nv, on vent, no bleeding, receiving abx, no night sweats 03/11 nv, dw surgeon and pcp, with aortic dissection to transfer [facility] when stable 03/12 nv, labs reviewed, wbc 21, hgb 7.5, otherwise is comfortable 03/13 nv, labs noted, no bleeding, wbc 13, hgb improved, meds reviewed 03/15 nv, meds reviewed, labs noted, no bleeding, on vent 03/16 nv/tv, peg, meds noted, hgb remains stable, improved to 10 2/ s/p egd, with gastric ulceration noted, hgb stable 03/18 labs noted, hgb 6.8, to get 1 unit prbc, meds reviewed 03/19 hgb 9.2, plt 78, no hemoptysis, is comfortable 03/20 labs reviewed, meds noted, no bleeding, dw rn 03/22 wound treatment, vent, with gtube, labs reviewed, dw rn 03/23 labs reviewed, meds noted, no bleeding, with gt Objective Objective Current Medications Medications (Trade) Dose Ordered Sig/Penny Route PRN Reason Start Time Stop Time Status Last Admin Dose Admin Acetaminophen (Tylenol) 650 mg Q6H PRN GT Mild Pain (Pain Scale 1-3) 03/02/20 22:30 04/01/20 22:29 03/18/20 11:14 Acetaminophen (Tylenol) 650 mg Q6H PRN GT Temp >100.5 03/03/20 03:00 04/01/20 22:29 Aspirin (ASA) 81 mg DAILY GT 03/07/20 09:00 04/21/20 08:59 03/21/20 08:00 Carvedilol (Coreg) 6.25 mg EVERY 8 HOURS GT 03/20/20 22:00 04/13/20 20:59 03/22/20 22:07 Chlorhexidine Gluconate (Ling-Hex 2%) 1 applic DAILY@1999 TOPIC 03/03/20 20:00 06/01/20 19:59 03/22/20 20:11 Dextrose (Dextrose 50%) 25 ml Q30M PRN IV Hypoglycemia 03/15/20 07:30 06/13/20 07:29 Dextrose (Dextrose 50%) 50 ml Q30M PRN IV Hypoglycemia 03/15/20 07:30 06/13/20 07:29 Dextrose/Sodium Chloride 1,000 ml @ 75 mls/hr [id number] IV 03/23/20 05:30 04/22/20 05:29 03/23/20 05:48 Hydralazine HCl (Apresoline) 25 mg Q6H PRN GT For High Blood Pressure 03/02/20 22:00 05/31/20 21:59 Hydromorphone HCl (Dilaudid) 0.5 mg Q4H PRN IVP For Pain 03/18/20 18:30 03/25/20 18:29 03/19/20 16:30 Loperamide HCl (Imodium) 2 mg Q6H PRN GT Diarrhea 03/06/20 12:45 04/05/20 12:44 03/06/20 13:01 Metoclopramide HCl (Reglan) 5 mg Q8HR IVP 03/04/20 11:45 04/03/20 11:44 03/23/20 05:12 Midodrine (Pro-Amatine) 10 mg EVERY 8 HOURS GT 03/17/20 22:00 06/01/20 12:59 03/23/20 05:12 Pantoprazole (Protonix) 40 mg EVERY 12 HOURS IVP 03/04/20 21:00 04/02/20 20:59 03/22/20 20:11 Polyethylene Glycol (Miralax) 17 gm BEDTIME PRN GT Constipation 03/02/20 22:00 04/01/20 21:59 Sodium Hypochlorite (Dakin's Quarter Strength) 1 applic DAILY TOPIC 03/04/20 09:00 04/03/20 08:59 03/22/20 08:14 Sucralfate (Carafate) 1 gm EVERY 6 HOURS GT 03/17/20 18:00 06/09/20 08:59 03/23/20 05:11 Tramadol HCl (Ultram) 50 mg EVERY 8 HOURS GT 03/19/20 14:00 03/26/20 13:59 03/23/20 05:12 Last 24 Hour Vital Signs Date Time Temp Pulse Resp B/P (MAP) Pulse Ox O2 Delivery O2 Flow Rate FiO2 03/23/20 05:11 61 107/61 03/23/20 04:00 Mechanical Ventilator 03/23/20 04:00 97.2 71 16 130/70 (90) 100 03/23/20 04:00 40 03/23/20 03:33 61 03/23/20 02:03 65 16 40 03/23/20 00:00 40 03/23/20 00:00 Mechanical Ventilator 03/23/20 00:00 71 03/23/20 00:00 97.9 69 17 142/67 (92) 100 03/22/20 22:07 71 135/61 03/22/20 20:00 73 03/22/20 20:00 97.7 72 20 136/63 (87) 100 03/22/20 20:00 Mechanical Ventilator 03/22/20 20:00 40 03/22/20 19:15 75 24 40 03/22/20 16:00 67 03/22/20 16:00 94.6 76 18 133/50 (77) 100 03/22/20 16:00 Mechanical Ventilator 03/22/20 16:00 40 03/22/20 14:52 71 21 40 03/22/20 12:00 40 03/22/20 12:00 Mechanical Ventilator 03/22/20 12:00 73 03/22/20 12:00 98.1 68 18 129/64 (85) 98 03/22/20 11:30 63 15 40 03/22/20 08:00 40 03/22/20 08:00 97.7 65 18 129/63 (85) 99 03/22/20 08:00 63 03/22/20 08:00 Mechanical Ventilator 03/22/20 07:10 62 17 40 03/22/20 05:08 71 145/59 03/22/20 04:00 97.7 71 22 145/59 (87) 98 03/22/20 04:00 Mechanical Ventilator 03/22/20 04:00 45 03/22/20 03:31 67 03/22/20 01:23 71 18 40 03/22/20 00:00 45 03/21/20 23:50 Mechanical Ventilator 03/21/20 23:46 97.9 69 23 127/55 (79) 97 03/21/20 23:43 67 03/21/20 21:19 74 134/76 03/21/20 20:00 97.9 79 23 134/76 (95) 96 03/21/20 20:00 79 03/21/20 19:44 45 03/21/20 19:40 Mechanical Ventilator 03/21/20 19:18 71 14 40 03/21/20 17:10 76 25 40 03/21/20 16:00 70 03/21/20 16:00 50 03/21/20 16:00 97.7 74 23 147/72 (97) 97 03/21/20 16:00 Mechanical Ventilator 03/21/20 15:03 74 22 40 03/21/20 13:55 69 132/62 03/21/20 13:22 70 17 40 03/21/20 12:00 Mechanical Ventilator 03/21/20 12:00 50 03/21/20 12:00 67 03/21/20 12:00 97.2 72 19 136/66 (89) 97 03/21/20 10:36 94 21 40 03/21/20 08:35 67 15 50 03/21/20 08:00 50 03/21/20 08:00 97.4 76 20 148/66 (93) 95 03/21/20 08:00 68 03/21/20 08:00 Mechanical Ventilator 03/21/20 07:04 65 15 50 03/21/20 06:40 97.2 Intake and Output 03/22/20 03/23/20 19:00 07:00 Intake Total 510 ml 225 ml Output Total 2150 ml Balance -1640 ml 225 ml Intake Free Water 90 ml 50 ml Tube Feeding 420 ml 175 ml Output Urine Total 150 ml Hemodialysis UF 2000 ml # Bowel Movements 1 2 Labs Test 03/20/20 11:50 03/20/20 18:08 03/21/20 00:00 03/21/20 05:20 POC Whole Blood Glucose 86 MG/DL (74-106) 80 MG/DL (74-106) 78 MG/DL (74-106) White Blood Count 5.2 K/UL (4.8-10.8) Red Blood Count 2.90 M/UL (4.20-5.40) Hemoglobin 8.4 G/DL (12.0-16.0) Hematocrit 25.6 % (37.0-47.0) Mean Corpuscular Volume 88 FL (80-99) Mean Corpuscular Hemoglobin 29.2 PG (27.0-31.0) Mean Corpuscular Hemoglobin Concent 33.0 G/DL (32.0-36.0) Red Cell Distribution Width 14.4 % (11.6-14.8) Platelet Count 87 K/UL (150-450) Mean Platelet Volume 9.0 FL (6.5-10.1) Neutrophils (%) (Auto) % (45.0-75.0) Lymphocytes (%) (Auto) % (20.0-45.0) Monocytes (%) (Auto) % (1.0-10.0) Eosinophils (%) (Auto) % (0.0-3.0) Basophils (%) (Auto) % (0.0-2.0) Sodium Level 130 MMOL/L (136-145) Potassium Level 3.8 MMOL/L (3.5-5.1) Chloride Level 95 MMOL/L (98-107) Carbon Dioxide Level 24 MMOL/L (21-32) Anion Gap 11 mmol/L (5-15) Blood Urea Nitrogen 85 mg/dL (7-18) Creatinine 2.5 MG/DL (0.55-1.30) Estimat Glomerular Filtration Rate 20.6 mL/min (>60) Glucose Level 88 MG/DL (74-106) Calcium Level 6.3 MG/DL (8.5-10.1) Phosphorus Level 2.3 MG/DL (2.5-4.9) Magnesium Level 1.9 MG/DL (1.8-2.4) Total Bilirubin 0.5 MG/DL (0.2-1.0) Aspartate Amino Transf (AST/SGOT) 35 U/L (15-37) Alanine Aminotransferase (ALT/SGPT) 23 U/L (12-78) Alkaline Phosphatase 88 U/L (46-116) Total Protein 4.9 G/DL (6.4-8.2) Albumin 1.2 G/DL (3.4-5.0) Globulin 3.7 g/dL Albumin/Globulin Ratio 0.3 (1.0-2.7) Test 03/21/20 05:51 03/21/20 23:22 03/22/20 04:30 03/22/20 05:14 POC Whole Blood Glucose 81 MG/DL (74-106) Test 03/22/20 06:15 03/22/20 11:21 03/23/20 01:13 03/23/20 03:50 White Blood Count 5.3 K/UL (4.8-10.8) Red Blood Count 2.63 M/UL (4.20-5.40) Hemoglobin 7.7 G/DL (12.0-16.0) Hematocrit 23.1 % (37.0-47.0) Mean Corpuscular Volume 88 FL (80-99) Mean Corpuscular Hemoglobin 29.2 PG (27.0-31.0) Mean Corpuscular Hemoglobin Concent 33.4 G/DL (32.0-36.0) Red Cell Distribution Width 13.9 % (11.6-14.8) Platelet Count 82 K/UL (150-450) Mean Platelet Volume 8.8 FL (6.5-10.1) Neutrophils (%) (Auto) % (45.0-75.0) Lymphocytes (%) (Auto) % (20.0-45.0) Monocytes (%) (Auto) % (1.0-10.0) Eosinophils (%) (Auto) % (0.0-3.0) Basophils (%) (Auto) % (0.0-2.0) Differential Total Cells Counted 100 Neutrophils % (Manual) 87 % (45-75) Lymphocytes % (Manual) 10 % (20-45) Monocytes % (Manual) 2 % (1-10) Eosinophils % (Manual) 1 % (0-3) Basophils % (Manual) 0 % (0-2) Band Neutrophils 0 % (0-8) Other Cell Type Platelet Estimate Decreased Platelet Morphology Normal Hypochromasia 1+ POC Whole Blood Glucose 98 MG/DL (74-106) 65 MG/DL (74-106) Height (Feet): 5 Height (Inches): 3.00 Weight (Pounds): 128 Objective Physical Exam: Vitals: reviewed General: NAD HEENT: nc, at Neck: supple ++trach/vent Chest: clear breath sounds bilaterally Cardiovascular: RRR, no s3, s4 Abdomen: soft, nontender, nd +gtube Extremities: no cce, normal range of motion Neuro: alert Evan Muhammad MD Mar 23, 2020 06:31
[2020-03-23 06:36] LABS: HEMATOCRIT 22.9 % (37.0-47.0); HEMOGLOBIN 7.6 G/DL (12.0-16.0); MEAN CORPUSCULAR VOLUME 88 FL (80-99); PLATELET COUNT 97 K/UL (150-450); RED BLOOD COUNT 2.59 M/UL (4.20-5.40); WHITE BLOOD COUNT 4.9 K/UL (4.8-10.8)
--- NOTE | 2020-03-23 06:52 | Anethesia Preoperative Eval ---
Anesthesia Pre-op PMH/ROS General Date of Evaluation: Mar 23, 2020 Time of Evaluation: 06:48 Anesthesiologist: Emily ASA Score: ASA 4 Mallampati Score Class I : Soft palate, uvula, fauces, pillars visible Class II: Soft palate, uvula, fauces visible Class III: Soft palate, base of uvula visible Class IV: Only hard plate visible Mallampati Classification: Class III Surgeon: Parisa Diagnosis: GI bleed Surgical Procedure: EGD Family History: no anesthesia problems Allergies: Coded Allergies: No Known Allergies (Unverified , 10/10/17) Patient NPO?: Yes NPO Date: Mar 04, 2020 NPO Time: 00:01 Past Medical History Cardiovascular: Reports: HTN, CAD, arrhythmia; Denies: CA, valve dz, other Pulmonary: Reports: COPD, other - respiratory failure; Denies: asthma, SANTHOSH Gastrointestinal/Genitourinary: Reports: GERD, CRI - on HD, other - Dysphagia PEG; Denies: ESRD Neurologic/Psychiatric: Reports: dementia, CVA; Denies: depression/anxiety, TIA, other Endocrine: Reports: DM, hypothyroidism; Denies: steroids, other HEENT: Denies: cataract (L), cataract (R), glaucoma, TANGIRNAQ (L), TANGIRNAQ (R), other Hematology/Immune: Reports: anemia; Denies: DVT, bleeding disorder, other Musculoskeletal/Integumentary: Reports: other - contructed; Denies: OA, RA, DJD, DDD, edema Other: other - malnourished PMH Narrative: as above PSxH Narrative: see chart Anesthesia Pre-op Phys. Exam Physician Exam Last Vital Signs Date Time Temp Pulse Resp B/P (MAP) Pulse Ox O2 Delivery O2 Flow Rate FiO2 03/23/20 05:11 61 107/61 03/23/20 04:00 Mechanical Ventilator 03/23/20 04:00 97.2 16 100 03/23/20 04:00 40 Constitutional: NAD Neurologic: other - unable to obtaine Cardiovascular: RRR, no M/R/G Respiratory: other - dimini shed Gastrointestinal: S/NT/ND - trach in place Airway Exam Mallampati Score: Class III MO: limited Neck: stiff Teeth: missing Dentures: no upper, no lower Anesthesia Pre-op A/P Labs Hematology Test 03/23/20 03:50 White Blood Count 4.9 K/UL (4.8-10.8) Red Blood Count 2.59 M/UL (4.20-5.40) L Hemoglobin 7.6 G/DL (12.0-16.0) L Hematocrit 22.9 % (37.0-47.0) L Mean Corpuscular Volume 88 FL (80-99) Mean Corpuscular Hemoglobin 29.3 PG (27.0-31.0) Mean Corpuscular Hemoglobin Concent 33.2 G/DL (32.0-36.0) Red Cell Distribution Width 14.0 % (11.6-14.8) Platelet Count 97 K/UL (150-450) L Mean Platelet Volume 8.3 FL (6.5-10.1) Neutrophils (%) (Auto) % (45.0-75.0) Lymphocytes (%) (Auto) % (20.0-45.0) Monocytes (%) (Auto) % (1.0-10.0) Eosinophils (%) (Auto) % (0.0-3.0) Basophils (%) (Auto) % (0.0-2.0) Chemistry Test 03/22/20 11:21 03/23/20 01:13 03/23/20 03:50 POC Whole Blood Glucose 98 MG/DL (74-106) 65 MG/DL (74-106) L Sodium Level Pending Potassium Level Pending Chloride Level Pending Carbon Dioxide Level Pending Blood Urea Nitrogen Pending Creatinine Pending Estimat Glomerular Filtration Rate Pending Glucose Level Pending Calcium Level Pending Phosphorus Level Pending Magnesium Level Pending Total Bilirubin Pending Aspartate Amino Transf (AST/SGOT) Pending Alanine Aminotransferase (ALT/SGPT) Pending Alkaline Phosphatase Pending C-Reactive Protein, Quantitative Pending Pro-B-Type Natriuretic Peptide Pending Total Protein Pending Albumin Pending Globulin Pending Risk Assessment & Plan Assessment: ASA 4 Plan: Osman Lang MD Mar 23, 2020 06:52
[2020-03-23 06:56] LABS: ALBUMIN 1.1 G/DL (3.4-5.0); ALBUMIN/GLOBULIN RATIO 0.3 (1.0-2.7); BILIRUBIN,TOTAL 0.5 MG/DL (0.2-1.0); CALCIUM 7.4 MG/DL (8.5-10.1); CREATININE 2.1 MG/DL (0.55-1.30); POTASSIUM 3.9 MMOL/L (3.5-5.1)
[2020-03-23] MEDS ORDERED: fentaNYL 100 mcg/2 mL IV ONE (07:00)
--- NOTE | 2020-03-23 07:00 | NUR ---
NURSE HAND-OFF REPORT: Important Events on Shift: Hypoglycemia episode- 65mg/dl, Hemorroids bleeding, NPO MN, For EGD, hgb 7.7- Dr. Mccauley aware. Patient Status: Guarded Diet: NPO MN Pending Orders: None Pending Results/Labs: none Pending MD notification: None Latest Vital Signs: Temperature 97.2 , Pulse 61 , B/P 107 /61 , Respiratory Rate 16 , O2 SAT 100 , Mechanical Ventilator, O2 Flow Rate . Vital Sign Comment: WNL EKG Rhythm: Sinus Rhythm Rhythm change?: N MD Notified?: N -Dr Екатерина HATFIELD Response: No New Orders Received Latest Chavarria Fall Score: 60 Fall Risk: High Risk Safety Measures: Call light Within Reach, Bed Alarm Zone 2, Side Rails Side Rails x3, Bed position Low and Locked. Fall Precautions: Yellow Socks Report given to [ERASMO Lindsay].
[2020-03-23 07:22] LABS: PHOSPHORUS 1.6 MG/DL (2.5-4.9)
--- NOTE | 2020-03-23 07:30 | NUR ---
NURSE NOTES: Received report from ERASMO Forte. Patient in bed resting, no active s/s cardiac, respiratory distress noticed at this time. Patient open eyes spontaneously, withdraw to pain, SR with HR 71. Patient trach to vent, Shiley 7 AC 14 TV 500 Fio2 40% PEEP 5 O2 sat 97%. Patient GT on hold prior to EGD. IV on left FA 22G, asymptomatic, patent, intact. IVF D5 1/2 NS @ 75ml/h at this time due to hypoglycemic during NPO. Bed in lowest position, side rails upx3, call light within reach, bed alarm on, Will continue to monitor.
--- NOTE | 2020-03-23 07:30 | Endoscopy Procedure Note ---
Endoscopy Procedure Note General Indication for Procedure: gib Procedures Performed: EGD Operative Findings/Diagnosis: gu Specimen: none Pt Tolerated Procedure Well: Yes Estimated Blood Loss: none Anesthesia Anesthesiologist: demi Anesthesia: MAC Inserted Devices Implant(s) used?: No GI Core Measures 50 yrs or older w/o bx or poly: Not Applicable 10yrs. F/U recommended: Not Applicable Inder Mccauley MD Mar 23, 2020 07:30
--- NOTE | 2020-03-23 07:35 | NUR ---
NURSE NOTES: EGD done at the bedside, Dr. Mccauley made aware of Hgb 7.6 today. No transfusion needed at this time, will order accordingly. Will continue to follow up.
--- NOTE | 2020-03-23 07:55 | NUR ---
RD ASSESSMENT & RECOMMENDATIONS SEE CARE ACTIVITY FOR COMPLETE ASSESSMENT DAILY ESTIMATED NEEDS: Needs based on Critical care, wound, renal dysfunction 59.5 kg 27-22 kcals/kg 3808-5350 total kcals W/ HD (1.5-2.0) g protein/kg 89-119 g total protein Fluid per MD NUTRITION DIAGNOSIS: * Swallowing difficulty R/T dysphagia, respiratory status as evidenced by vent dep via trach, GT Dep. * Increase kcal and pro needs r/t wound healing, renal dysfunction as evidenced by h/o stage 4 sacral wound, and HD. CURRENT TF: Nepro @ 35ml/hr x 24 hrs ENTERAL NUTRITION RECOMMENDATIONS: Nepro @40ml/hr x 24 hrs + Prosource 1pkt BID to provide 960ml, 1728kcal, 78g+22g prot, 779ml free water * INCREASE goal rate to 40ml/hr. * Add Prosource 1pkt BID to better meet increased protein needs (additional 11g prot/each) * Water flush per MD/ HOB over 30 degrees ADDITIONAL RECOMMENDATIONS: * Calibrated bed scale, wts fluctuatinkg-> 68kg->76.5kg now * Monitor for HD continuity * WC eval-> w/ TF orders add FRANKLIN in 4oz H2O BID via GT Vit C per nephrology, add Nephrovite 1 tab daily. * Monitor BGs closely for hypoglycemia- now on D5 IVF On Bedside BG checks * Monitor lytes: phos low now, rec repletion
[2020-03-23 08:00] VITALS: BP 119/49
[2020-03-23] MEDS: Aspirin Baby 81mg GT SCH (08:07)
[2020-03-23] MEDS: Pantoprazole Inj IVP SCH ×2 (08:08→20:53)
[2020-03-23] MEDS: Dakin's 0.125% Soln (Quarter Strength) 16oz TOPIC SCH (08:09)
--- NOTE | 2020-03-23 08:14 | Procedure Note ---
DATE OF PROCEDURE: 03/23/2020 SURGEON: Inder Mccauley MD. PROCEDURE: Upper endoscopy G-tube placement. ANESTHESIA: Per Dr. Diaz. INSTRUMENT: Olympus adult flexible upper endoscope. INDICATION: Upper GI bleeding. REASON FOR PROCEDURE: The procedure, risks, benefits, and possible consequences, including hemorrhage, aspiration, perforation and infection, and alternative treatments, were explained to the patient/legal guardian by Dr. Inder Mccauley and the patient/legal guardian understood and accepted these risks. PROCEDURE IN DETAIL: After informed consent was obtained and the patient was adequately sedated, Olympus upper endoscope was advanced from mouth into the second portion of the duodenum and retroflexion was performed in the stomach. Going in, the esophagus was grossly within normal limits, while coming out there was a lot of submucosal telangiectasias, not sure exactly why the patient got that, possibly from low platelet count, but we are not sure. In the stomach, there was a large ulcer, same ulcer we saw last time in the pre-pyloric region. This ulcer is over a centimeter in size, looks with a clear borders and no obvious visible vessel, no adherent clot. We thought may be the G-tube is touching it and causing a bleeding, so we changed the G-tube. A 20-Kazakh balloon-type was replaced, which looked better. Since there is no active bleeding at this time, there is no visible vessel and there was no adherent clot, we could not find the active visible site to cauterize it, so we did not do cauterization. At this time, the upper endoscope was retrieved and procedure was terminated. SUMMARY OF FINDINGS: 1. Large gastric ulcer. See above for detail without any stigmata of active bleeding. 2. Status post G-tube change. 3. Submucosal bleeding in the esophagus on the way out, most probably procedure induced, but I am not sure why. RECOMMENDATIONS: At this time, we recommend to continue on Protonix and Carafate. If the patient has evidence of upper GI bleeding again, we recommend the G-tube to be changed to the GJ to say avoiding touching the tip of the tube of the ulceration area, although I doubt that this is the only cause for this gastric ulcer. We also recommend treating for the hemorrhoids with Anusol-HC, resume tube feeding for now. Inder Mccauley M.D. DR: MILLI JOB#: [id number] CC:
[2020-03-23] MEDS ORDERED: Hydrocortisone 25mg supp RECTAL SCH (09:00)
[2020-03-23] MEDS ORDERED: Sodium Phosphate 10 MM in NS 275 ML IVPB ONE (10:00)
--- NOTE | 2020-03-23 10:08 | NUR ---
CASE MANAGEMENT:REVIEW 03/23/20 SI: SEPSIS. [facility] BACTEREMIA ANEMIA...S/P 13 UNITS PRBC'S. TRACH/VENT/GTUBE 97.4 61 18 119/49 100% ON VENT SUPPORT W/40% FIO2 H/H-7.6/22.9 PLT-97 BUN+67 CR+2.1 CRP+22.1 BNP>[id number] IS: IV NA PHOS X1 COREG GT Q8HRS ULTRAM GT Q8HRS MIDODRINE GT Q8HRS CARAFATE GT Q6HRS ASA GT QD IV REGLAN Q8HRS : STEP DOWN UNIT DCP: FROM [facility]
--- NOTE | 2020-03-23 10:32 | Nephrology Progress Note ---
Assessment/Plan Problem List: (1) Renal failure (ARF), acute on chronic (2) Anemia (3) Hyponatremia (4) Respiratory failure Assessment (1) JAVIER (acute kidney injury) (2) Renal failure (ARF), acute on chronic (3) Feeding by G-tube (4) Tracheostomy in place (5) Electrolyte imbalance, hyponatremia (6) Anemia, severe (7) Respiratory failure, acute and chronic (8) history of elevated lipase, pancreatitis (9) Elevated troponin I (10) Sepsis Plan March 23: Labs reviewed. Dialyzed yesterday. Next dialysis tomorrow. Anemia management per conservation planner. March 22: Labs reviewed. Due for dialysis today. Discussed with RN. Agree with discontinuation of the Norman catheter. Hemoglobin lower. Transfusion per conservation planner. March 21: Labs reviewed. Will arrange for dialysis tomorrow. Continue per consultants. Will hold phosphorus binders at this time. March 20: Labs reviewed. Patient was dialyzed yesterday. Electrolyte abnormalities corrected. Continue per current management. March 19: Due for dialysis today. Abnormal labs noted. All will be corrected after dialysis. March 18: Labs reviewed. Will dialyze tomorrow. Patient being transfused today. Patient due for abdominal paracentesis. We will keep the Norman in. Continue to monitor renal parameters and dialyze as needed. March 17: No CHEM panel done today. CBC reviewed. Hemoglobin is lowering. Dialyzed yesterday. Will check lab tomorrow. Continue per consultants. March 16: Labs reviewed. Due for dialysis today. Hemoglobin 10.2 today. Continue to monitor renal parameters. March 15: Labs reviewed. Dialyzed March 13. Due for dialysis March 16. Hemoglobin lower. 1 unit of packed RBCs ordered. Per orders. March 14: No labs drawn today. Dialyzed yesterday. Full code. Will check lab tomorrow. Dialysis as needed. March 13: Labs reviewed. Due for dialysis today. Patient remains full code. Continue per current management. March 12: Labs reviewed. Dialyzed yesterday. Due for dialysis tomorrow. Discussed with RN. Patient full code. Continue per current management. March 11: Labs reviewed. Dialyzed this morning. Phosphorus binders dose adjusted. Continue per consultants. Continue to monitor renal parameters. CT: Extensive thoracoabdominal aortic dissection March 10: Labs reviewed. Will order dialysis tomorrow. Phosphorus binders added. Continue per consultants. March 09: No chemistry panel done today. Patient dialyzed yesterday. On dextrose 10% for hypoglycemia. We will check labs tomorrow. Dialysis as needed. March 08: Labs reviewed. Will order dialysis today. Blood sugar low. D10 50 cc an hour started. Continue as is. March 07: Labs reviewed. Dialyzed March 05 and March 06. Continue to monitor renal parameters and hemoglobin. Abnormal electrolytes addressed. IV fluids stopped. Per orders. March 06: Labs reviewed. Dialyzed yesterday. Will reorder dialysis for today. Continue to monitor renal parameters. Hemoglobin 8.4. Patient full code. March 05: Labs reviewed. Patient did not receive dialysis until this morning. Proceed with dialysis. Continue to monitor renal parameters and hemoglobin and hematocrit. March 04: Labs reviewed. Hemoglobin lower. Patient actively bleeding. Was not dialyzed yesterday. Due for GI endoscopy. Continue fluid challenge. Transfusion as needed. Dialysis today. March 03: Labs reviewed. Dialysis ordered. Blood pressure medication all discontinued due to hypotensive state. Albumin bolus given. Continue to monitor renal parameters. Medication list reviewed. Midodrin for low blood pressure ordered Subjective ROS Limited/Unobtainable: Yes Objective Objective Last 24 Hour Vital Signs Date Time Temp Pulse Resp B/P (MAP) Pulse Ox O2 Delivery O2 Flow Rate FiO2 03/23/20 08:00 57 03/23/20 08:00 Mechanical Ventilator 03/23/20 08:00 40 03/23/20 08:00 Mechanical Ventilator 03/23/20 08:00 97.4 61 18 119/49 (72) 100 03/23/20 07:14 53 14 40 03/23/20 05:11 61 107/61 03/23/20 04:00 Mechanical Ventilator 03/23/20 04:00 97.2 71 16 130/70 (90) 100 03/23/20 04:00 40 03/23/20 03:33 61 03/23/20 02:03 65 16 40 03/23/20 00:00 40 03/23/20 00:00 Mechanical Ventilator 03/23/20 00:00 71 03/23/20 00:00 97.9 69 17 142/67 (92) 100 03/22/20 22:07 71 135/61 03/22/20 20:00 73 03/22/20 20:00 97.7 72 20 136/63 (87) 100 03/22/20 20:00 Mechanical Ventilator 03/22/20 20:00 40 03/22/20 19:15 75 24 40 03/22/20 16:00 67 03/22/20 16:00 94.6 76 18 133/50 (77) 100 03/22/20 16:00 Mechanical Ventilator 03/22/20 16:00 40 03/22/20 14:52 71 21 40 03/22/20 12:00 40 03/22/20 12:00 Mechanical Ventilator 03/22/20 12:00 73 03/22/20 12:00 98.1 68 18 129/64 (85) 98 03/22/20 11:30 63 15 40 Intake and Output 03/22/20 03/23/20 19:00 07:00 Intake Total 510 ml 300 ml Output Total 2150 ml Balance -1640 ml 300 ml Intake Free Water 90 ml 50 ml IV Total 75 ml Tube Feeding 420 ml 175 ml Output Urine Total 150 ml Hemodialysis UF 2000 ml # Bowel Movements 1 2 Current Medications Medications (Trade) Dose Ordered Sig/Penny Route PRN Reason Start Time Stop Time Status Last Admin Dose Admin Acetaminophen (Tylenol) 650 mg Q6H PRN GT Mild Pain (Pain Scale 1-3) 03/02/20 22:30 04/01/20 22:29 03/18/20 11:14 Acetaminophen (Tylenol) 650 mg Q6H PRN GT Temp >100.5 03/03/20 03:00 04/01/20 22:29 Aspirin (ASA) 81 mg DAILY GT 03/07/20 09:00 04/21/20 08:59 03/21/20 08:00 Carvedilol (Coreg) 6.25 mg EVERY 8 HOURS GT 03/20/20 22:00 04/13/20 20:59 03/22/20 22:07 Chlorhexidine Gluconate (Ling-Hex 2%) 1 applic DAILY@1999 TOPIC 03/03/20 20:00 06/01/20 19:59 03/22/20 20:11 Dextrose (Dextrose 50%) 25 ml Q30M PRN IV Hypoglycemia 03/15/20 07:30 06/13/20 07:29 Dextrose (Dextrose 50%) 50 ml Q30M PRN IV Hypoglycemia 03/15/20 07:30 06/13/20 07:29 Hydralazine HCl (Apresoline) 25 mg Q6H PRN GT For High Blood Pressure 03/02/20 22:00 05/31/20 21:59 Hydrocortisone (Anusol HC) 25 mg Q12HR RECTAL 03/23/20 21:00 06/21/20 08:59 Hydromorphone HCl (Dilaudid) 0.5 mg Q4H PRN IVP For Pain 03/18/20 18:30 03/25/20 18:29 03/19/20 16:30 Loperamide HCl (Imodium) 2 mg Q6H PRN GT Diarrhea 03/06/20 12:45 04/05/20 12:44 03/06/20 13:01 Metoclopramide HCl (Reglan) 5 mg Q8HR IVP 03/04/20 11:45 04/03/20 11:44 03/23/20 05:12 Midodrine (Pro-Amatine) 10 mg EVERY 8 HOURS GT 03/17/20 22:00 06/01/20 12:59 03/23/20 05:12 Pantoprazole (Protonix) 40 mg EVERY 12 HOURS IVP 03/04/20 21:00 04/02/20 20:59 03/23/20 08:08 Polyethylene Glycol (Miralax) 17 gm BEDTIME PRN GT Constipation 03/02/20 22:00 04/01/20 21:59 Sodium Hypochlorite (Dakin's Quarter Strength) 1 applic DAILY TOPIC 03/04/20 09:00 04/03/20 08:59 03/23/20 08:09 Sodium Phosphate 10 mm/Sodium Chloride 278.3333 ml @ 92.778 m... ONCE ONCE IVPB 03/23/20 10:00 03/23/20 12:59 03/23/20 10:16 Sucralfate (Carafate) 1 gm EVERY 6 HOURS GT 03/17/20 18:00 06/09/20 08:59 03/23/20 05:11 Tramadol HCl (Ultram) 50 mg EVERY 8 HOURS GT 03/19/20 14:00 03/26/20 13:59 03/23/20 05:12 Laboratory Tests 03/22/20 11:21: POC Whole Blood Glucose 98 03/23/20 01:13: POC Whole Blood Glucose 65L 03/23/20 03:50: White Blood Count 4.9, Red Blood Count 2.59L, Hemoglobin 7.6L, Hematocrit 22.9L, Mean Corpuscular Volume 88, Mean Corpuscular Hemoglobin 29.3, Mean Corpuscular Hemoglobin Concent 33.2, Red Cell Distribution Width 14.0, Platelet Count 97L, Mean Platelet Volume 8.3, Neutrophils (%) (Auto) , Lymphocytes (%) (Auto) , Monocytes (%) (Auto) , Eosinophils (%) (Auto) , Basophils (%) (Auto) , Sodium Level 134L, Potassium Level 3.9, Chloride Level 98, Carbon Dioxide Level 28, Anion Gap 8, Blood Urea Nitrogen 67H, Creatinine 2.1H, Estimat Glomerular Filtration Rate 25.2, Glucose Level 79, Calcium Level 7.4L, Phosphorus Level 1.6L, Magnesium Level 1.9, Total Bilirubin 0.5, Aspartate Amino Transf (AST/SGOT) 41H, Alanine Aminotransferase (ALT/SGPT) 18, Alkaline Phosphatase 97, C-Reactive Protein, Quantitative 22.1H, Pro-B-Type Natriuretic Peptide > 39482A, Total Protein 5.0L, Albumin 1.1L, Globulin 3.9, Albumin/Globulin Ratio 0.3L Height (Feet): 5 Height (Inches): 3.00 Weight (Pounds): 128 General Appearance: no apparent distress EENT: other - Intubated via trach on ventilator Cardiovascular: normal rate Respiratory/Chest: decreased breath sounds Abdomen: distended Johnny Houston MD Mar 23, 2020 10:32
--- NOTE | 2020-03-23 10:34 | NUR ---
NURSE NOTES: Called [facility] Nephrology tele :[phone] spoke with Asmita and informed patient schedule for HD tomorrow 03/24/[address] Houston.
--- NOTE | 2020-03-23 10:47 | Pulmonology Progress Note ---
Subjective ROS Limited/Unobtainable: Yes Interval Events: s/p paracentesis, 2.3L out; s/p 2 uniuts PRBC HEENT: Repors: no symptoms Respiratory: Reports: no symptoms Cardiovascular: Reports: no symptoms Gastrointestinal/Abdominal: Reports: diarrhea Allergies: Coded Allergies: No Known Allergies (Unverified , 10/10/17) All Systems: reviewed and negative except above Objective Last 24 Hour Vital Signs Date Time Temp Pulse Resp B/P (MAP) Pulse Ox O2 Delivery O2 Flow Rate FiO2 03/23/20 08:00 57 03/23/20 08:00 Mechanical Ventilator 03/23/20 08:00 40 03/23/20 08:00 Mechanical Ventilator 03/23/20 08:00 97.4 61 18 119/49 (72) 100 03/23/20 07:14 53 14 40 03/23/20 05:11 61 107/61 03/23/20 04:00 Mechanical Ventilator 03/23/20 04:00 97.2 71 16 130/70 (90) 100 03/23/20 04:00 40 03/23/20 03:33 61 03/23/20 02:03 65 16 40 03/23/20 00:00 40 03/23/20 00:00 Mechanical Ventilator 03/23/20 00:00 71 03/23/20 00:00 97.9 69 17 142/67 (92) 100 03/22/20 22:07 71 135/61 03/22/20 20:00 73 03/22/20 20:00 97.7 72 20 136/63 (87) 100 03/22/20 20:00 Mechanical Ventilator 03/22/20 20:00 40 03/22/20 19:15 75 24 40 03/22/20 16:00 67 03/22/20 16:00 94.6 76 18 133/50 (77) 100 03/22/20 16:00 Mechanical Ventilator 03/22/20 16:00 40 03/22/20 14:52 71 21 40 03/22/20 12:00 40 03/22/20 12:00 Mechanical Ventilator 03/22/20 12:00 73 03/22/20 12:00 98.1 68 18 129/64 (85) 98 03/22/20 11:30 63 15 40 Intake and Output 03/22/20 03/23/20 19:00 07:00 Intake Total 510 ml 300 ml Output Total 2150 ml Balance -1640 ml 300 ml Intake Free Water 90 ml 50 ml IV Total 75 ml Tube Feeding 420 ml 175 ml Output Urine Total 150 ml Hemodialysis UF 2000 ml # Bowel Movements 1 2 General Appearance: no acute distress HEENT: atraumatic Respiratory: lungs clear Cardiovascular: normal rate, regular rhythm Extremities: other - edema bilateral Laboratory Tests 03/22/20 11:21: POC Whole Blood Glucose 98 03/23/20 01:13: POC Whole Blood Glucose 65L 03/23/20 03:50: White Blood Count 4.9, Red Blood Count 2.59L, Hemoglobin 7.6L, Hematocrit 22.9L, Mean Corpuscular Volume 88, Mean Corpuscular Hemoglobin 29.3, Mean Corpuscular Hemoglobin Concent 33.2, Red Cell Distribution Width 14.0, Platelet Count 97L, Mean Platelet Volume 8.3, Neutrophils (%) (Auto) , Lymphocytes (%) (Auto) , Monocytes (%) (Auto) , Eosinophils (%) (Auto) , Basophils (%) (Auto) , Sodium Level 134L, Potassium Level 3.9, Chloride Level 98, Carbon Dioxide Level 28, Anion Gap 8, Blood Urea Nitrogen 67H, Creatinine 2.1H, Estimat Glomerular Filtration Rate 25.2, Glucose Level 79, Calcium Level 7.4L, Phosphorus Level 1.6L, Magnesium Level 1.9, Total Bilirubin 0.5, Aspartate Amino Transf ( AST/SGOT) 41H, Alanine Aminotransferase (ALT/SGPT) 18, Alkaline Phosphatase 97, C-Reactive Protein, Quantitative 22.1H, Pro-B-Type Natriuretic Peptide > 84616M, Total Protein 5.0L, Albumin 1.1L, Globulin 3.9, Albumin/Globulin Ratio 0.3L Current Medications Medications (Trade) Dose Ordered Sig/Penny Route PRN Reason Start Time Stop Time Status Last Admin Dose Admin Acetaminophen (Tylenol) 650 mg Q6H PRN GT Mild Pain (Pain Scale 1-3) 03/02/20 22:30 04/01/20 22:29 03/18/20 11:14 Acetaminophen (Tylenol) 650 mg Q6H PRN GT Temp >100.5 03/03/20 03:00 04/01/20 22:29 Aspirin (ASA) 81 mg DAILY GT 03/07/20 09:00 04/21/20 08:59 03/21/20 08:00 Carvedilol (Coreg) 6.25 mg EVERY 8 HOURS GT 03/20/20 22:00 04/13/20 20:59 03/22/20 22:07 Chlorhexidine Gluconate (Ling-Hex 2%) 1 applic DAILY@1999 TOPIC 03/03/20 20:00 06/01/20 19:59 03/22/20 20:11 Dextrose (Dextrose 50%) 25 ml Q30M PRN IV Hypoglycemia 03/15/20 07:30 06/13/20 07:29 Dextrose (Dextrose 50%) 50 ml Q30M PRN IV Hypoglycemia 03/15/20 07:30 06/13/20 07:29 Hydralazine HCl (Apresoline) 25 mg Q6H PRN GT For High Blood Pressure 03/02/20 22:00 05/31/20 21:59 Hydrocortisone (Anusol HC) 25 mg Q12HR RECTAL 03/23/20 21:00 06/21/20 08:59 Hydromorphone HCl (Dilaudid) 0.5 mg Q4H PRN IVP For Pain 03/18/20 18:30 03/25/20 18:29 03/19/20 16:30 Loperamide HCl (Imodium) 2 mg Q6H PRN GT Diarrhea 03/06/20 12:45 04/05/20 12:44 03/06/20 13:01 Metoclopramide HCl (Reglan) 5 mg Q8HR IVP 03/04/20 11:45 04/03/20 11:44 03/23/20 05:12 Midodrine (Pro-Amatine) 10 mg EVERY 8 HOURS GT 03/17/20 22:00 06/01/20 12:59 03/23/20 05:12 Pantoprazole (Protonix) 40 mg EVERY 12 HOURS IVP 03/04/20 21:00 04/02/20 20:59 03/23/20 08:08 Polyethylene Glycol (Miralax) 17 gm BEDTIME PRN GT Constipation 03/02/20 22:00 04/01/20 21:59 Sodium Hypochlorite (Dakin's Quarter Strength) 1 applic DAILY TOPIC 03/04/20 09:00 04/03/20 08:59 2/8/21 08:09 Sodium Phosphate 10 mm/Sodium Chloride 278.3333 ml @ 92.778 m... ONCE ONCE IVPB 03/23/20 10:00 03/23/20 12:59 03/23/20 10:16 Sucralfate (Carafate) 1 gm EVERY 6 HOURS GT 03/17/20 18:00 06/09/20 08:59 03/23/20 05:11 Tramadol HCl (Ultram) 50 mg EVERY 8 HOURS GT 03/19/20 14:00 03/26/20 13:59 03/23/20 05:12 Assessment/Plan Assessment/Plan 1. Chronic respiratory failure. - CT chest/abd/pelv: improving pleural effusion 2. Mechanical ventilation. - current setting at AC 14, Vt 500, FiO2 40%, PEEP 5 saturating well - continue current setting - suction secretions as needed 3. Chronic tracheostomy. 4. Chronic G-tube. 5. Anemia. - s/p transfusion - stool OB positive (03/02, 03/03) - off anticoags 6. Renal failure. 7. Leukocytosis and sepsis. - WBC now resolved 8. Sepsis UTI 9. Gram positive cocci bacteremia - f/u BCx negative for growth 10. COVID-19 negative 11. Diarrhea - C. diff neg 12. Hypoglycemia - resolved 13. Bradycardia - no urgent indication for pacemaker per cardio 14. Gastric ulcer - on PPI - GI following 15. Pleural effusion - small; insufficient volume for safe thoracentesis 16. thoracic aortic aneurysm - noted on CT imaging - pt needs emergent transfer out to [facility] for CT surgery evaluation, primary MD aware - Pt might not be a candidate for TAA repair 17. Ascites - s/p paracentesis (2/), 2.3L out The care of this patient was discussed with my supervising physician Time spent for this encounter was approximately 31 minutes Cruz Wilson Mar 23, 2020 10:47
--- NOTE | 2020-03-23 11:16 | Immediate Post-Op Evaluation ---
Immediate Post-Op Evalulation Immediate Post-Op Evalulation Procedure: EGD feeding tube exchange Date of Evaluation: Mar 23, 2020 Time of Evaluation: 07:40 IV Fluids: 150 Blood Products: none Estimated Blood Loss: none Urinary Output: none Blood Pressure Systolic: 116 Blood Pressure Diastolic: 74 Pulse Rate: 68 Respiratory Rate: 20 O2 Sat by Pulse Oximetry: 98 Temperature (Fahrenheit): 97.4 Pain Score (1-10): 1 Nausea: No Vomiting: No Complications none Patient Status: no response, ventilated, none Hydration Status: adequate Osman Diaz MD Mar 23, 2020 11:16
--- NOTE | 2020-03-23 11:17 | 48 Hour Post Anesthesia Eval ---
Post Anesthesia Evaluation Procedure: EGD feeding tube exchange Date of Evaluation: Mar 23, 2020 Time of Evaluation: 11:16 Blood Pressure Systolic: 114 0: 72 Pulse Rate: 82 Respiratory Rate: 22 Temperature (Fahrenheit): 97.6 O2 Sat by Pulse Oximetry: 98 Airway: other - trach in place Nausea: No Vomiting: No Pain Intensity: 1 Hydration Status: adequate Cardiopulmonary Status: stable Mental Status/LOC: patient returned to baseline Follow-up Care/Observations: n/a Post-Anesthesia Complications: none Follow-up care needed: N/A Osman Diaz MD Mar 23, 2020 11:17
[2020-03-23 12:00] VITALS: BP 111/60
[2020-03-23 16:00] VITALS: BP 124/57
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
--- NOTE | 2020-03-23 19:30 | NUR ---
NURSE HAND-OFF REPORT: Important Events on Shift: EGD Patient Status: stable/guarded Diet: Nephro @ 35 Pending Orders: na Pending Results/Labs:na Pending notification:na Latest Vital Signs: Temperature 97.4 , Pulse 62 , B/P 124 /57 , Respiratory Rate 18 , O2 SAT 100 , Mechanical Ventilator, O2 Flow Rate . Vital Sign Comment: stable EKG Rhythm: Sinus Rhythm Rhythm change?: N MD Notified?: N -Dr Екатерина HATFIELD Response: No New Orders Received Latest Chavarria Fall Score: 60 Fall Risk: High Risk Safety Measures: Call light Within Reach, Bed Alarm Zone 2, Side Rails Side Rails x3, Bed position Low and Locked. Fall Precautions: Yellow Socks Report given to ERASMO Vasquez.
--- NOTE | 2020-03-23 19:36 | NUR ---
Received report from ERASMO Lindsay. Assumed care of patient.
[2020-03-23 20:00] VITALS: BP 143/69
[2020-03-23] MEDS: Dyna-Hex 2% Top Sol 2oz TOPIC SCH (20:00)
[2020-03-23] MEDS: Hydrocortisone 25mg supp RECTAL SCH (20:53)
[2020-03-23] MEDS: Hydromorphone 0.5mg/0.5ml inj IVP PRN (20:54)
--- NOTE | 2020-03-23 20:55 | NUR ---
Scanner in the room is not working, so could not scan any meds this shift. Will have to administer manually.
--- NOTE | 2020-03-23 22:00 | NUR ---
Patient treated with tylenol fo fever 101.5 orally. Pt c/o severe pain this evening. Administered Dialudid earlier in shift, and then administered scheduled tramadol. Will continue to monitor and reassess for fever reduction. patient also repositioned.
--- NOTE | 2020-03-23 22:40 | General Progress Note ---
Subjective Constitutional: Reports: no symptoms HEENT: Reports: no symptoms Cardiovascular: Reports: no symptoms Respiratory: Reports: no symptoms Gastrointestinal/Abdominal: Reports: no symptoms Genitourinary: Reports: no symptoms Neurologic/Psychiatric: Reports: no symptoms Endocrine: Reports: no symptoms Hematologic/Lymphatic: Reports: no symptoms Allergies: Coded Allergies: No Known Allergies (Unverified , 10/10/17) Objective Last 24 Hour Vital Signs Date Time Temp Pulse Resp B/P (MAP) Pulse Ox O2 Delivery O2 Flow Rate FiO2 03/23/20 21:48 80 145/65 03/23/20 20:00 101.5 76 18 143/69 (93) 100 03/23/20 20:00 40 03/23/20 20:00 Mechanical Ventilator 03/23/20 19:39 70 21 40 03/23/20 19:06 61 03/23/20 16:00 97.4 62 18 124/57 (79) 100 03/23/20 16:00 71 03/23/20 16:00 Mechanical Ventilator 03/23/20 16:00 40 03/23/20 15:08 66 14 40 03/23/20 14:00 56 111/60 03/23/20 12:00 56 03/23/20 12:00 97.2 58 18 111/60 (77) 98 03/23/20 12:00 Mechanical Ventilator 03/23/20 12:00 40 03/23/20 11:17 82 22 98 03/23/20 11:16 68 20 98 03/23/20 11:03 57 15 40 03/23/20 08:00 57 03/23/20 08:00 Mechanical Ventilator 03/23/20 08:00 40 03/23/20 08:00 Mechanical Ventilator 03/23/20 08:00 97.4 61 18 119/49 (72) 100 03/23/20 07:14 53 14 40 03/23/20 05:11 61 107/61 03/23/20 04:00 Mechanical Ventilator 03/23/20 04:00 97.2 71 16 130/70 (90) 100 03/23/20 04:00 40 03/23/20 03:33 61 03/23/20 02:03 65 16 40 03/23/20 00:00 40 03/23/20 00:00 Mechanical Ventilator 03/23/20 00:00 71 03/23/20 00:00 97.9 69 17 142/67 (92) 100 Intake and Output 03/22/20 03/23/20 19:00 07:00 Intake Total 510 ml 300 ml Output Total 2150 ml Balance -1640 ml 300 ml Intake Free Water 90 ml 50 ml IV Total 75 ml Tube Feeding 420 ml 175 ml Output Urine Total 150 ml Hemodialysis UF 2000 ml # Bowel Movements 1 2 Laboratory Tests 03/23/20 01:13: POC Whole Blood Glucose 65L 03/23/20 03:50: White Blood Count 4.9, Red Blood Count 2.59L, Hemoglobin 7.6L, Hematocrit 22.9L, Mean Corpuscular Volume 88, Mean Corpuscular Hemoglobin 29.3, Mean Corpuscular Hemoglobin Concent 33.2, Red Cell Distribution Width 14.0, Platelet Count 97L, Mean Platelet Volume 8.3, Neutrophils (%) (Auto) , Lymphocytes (%) (Auto) , Monocytes (%) (Auto) , Eosinophils (%) (Auto) , Basophils (%) (Auto) , Sodium Level 134L, Potassium Level 3.9, Chloride Level 98, Carbon Dioxide Level 28, Anion Gap 8, Blood Urea Nitrogen 67H, Creatinine 2.1H, Estimat Glomerular Filtration Rate 25.2, Glucose Level 79, Calcium Level 7.4L, Phosphorus Level 1.6L, Magnesium Level 1.9, Total Bilirubin 0.5, Aspartate Amino Transf (AST/SGOT) 41H, Alanine Aminotransferase (ALT/SGPT) 18, Alkaline Phosphatase 97, C-Reactive Protein, Quantitative 22.1H, Pro-B-Type Natriuretic Peptide > 04891R, Total Protein 5.0L, Albumin 1.1L, Globulin 3.9, Albumin/Globulin Ratio 0.3L 03/23/20 11:36: POC Whole Blood Glucose 86 03/23/20 17:19: POC Whole Blood Glucose 67L 03/23/20 20:48: POC Whole Blood Glucose 80 Height (Feet): 5 Height (Inches): 3.00 Weight (Pounds): 128 General Appearance: WD/WN, no apparent distress, lethargic EENT: normal ENT inspection Neck: supple Cardiovascular: normal rate, regular rhythm, no gallop/murmur, no JVD Respiratory/Chest: decreased breath sounds, rhonchi - left Abdomen: normal bowel sounds, non tender, soft, no organomegaly, no mass Edema: 2+ Leg (L), 2+ Leg (R) Neurologic: alert, other - Eye contact normal verbal response Assessment/Plan Status Narrative Patient is awake spiked fever tachycardia after IV case and daptomycin has been DC'd he is alert eye contact normal attention span but no verbal response on physical examination blood vital signs are normal except fever and tachycardia see increased in episode have been immediately or nearly immediately after the antibiotic has been DC'd continue to have dialysis Monday and Monday Niccoli regardless of the laboratory tests she appears stable repeat laboratory tests will be done in a.m. Lucas Vera MD, MD Mar 23, 2020 22:40
--- NOTE | 2020-03-23 23:00 | NUR ---
Patient relaxing comfortably and sleeping with no outward appearance of pain.
[2020-03-24] VITALS: BP 139/67
[2020-03-24] MEDS: Sucralfate 1gm tab GT SCH ×4 (00:09→18:20)
[2020-03-24] MEDS: Hydromorphone 0.5mg/0.5ml inj IVP PRN ×2 (00:24→06:03)
--- NOTE | 2020-03-24 00:30 | NUR ---
Patient grimacing non-stop, restless/anxious, nods that she is in severe pain. Administered Dilaudid IV as scheduled PRN for severe pain. Patient nods appropriately when asked if she would like pain medication and also nods appropriately after given to let this RN know the pain medication is effective. This RN asks about location of pain and begins to name locations. Patient nods "no" until "bottom/Butt" is mentioned. Patient then nods yes that is where it hurts. VSS will continue to monitor.
[2020-03-24 04:00] VITALS: BP 139/73
--- NOTE | 2020-03-24 04:00 | NUR ---
Patient assessed and in severe pain. Administered pain medications per eMAR Will continue to monitor. No BM, clean and dry
[2020-03-24 05:34] LABS: HEMATOCRIT 20.4 % (37.0-47.0); HEMOGLOBIN 7.1 G/DL (12.0-16.0); MEAN CORPUSCULAR VOLUME 88 FL (80-99); PLATELET COUNT 90 K/UL (150-450); RED BLOOD COUNT 2.32 M/UL (4.20-5.40); RED CELL DISTRIBUTION WIDTH 15.6 % (11.6-14.8)
[2020-03-24 05:45] LABS: CALCIUM 6.9 MG/DL (8.5-10.1); CREATININE 2.3 MG/DL (0.55-1.30); POTASSIUM 3.9 MMOL/L (3.5-5.1)
--- NOTE | 2020-03-24 05:45 | NUR ---
Large BM and bleeding rectum bright red appears to be due to hemorrhoids. Repositioned and cleaned patient. VSS
[2020-03-24] MEDS: traMADol 50mg tab GT SCH ×3 (06:02→22:44)
[2020-03-24] MEDS: Carvedilol 6.25mg Tab GT SCH ×3 (06:02→22:44)
[2020-03-24] MEDS: Midodrine 10mg tab GT SCH ×3 (06:02→22:00)
[2020-03-24] MEDS: Metoclopramide 10mg/2ml Inj IVP SCH ×3 (06:02→22:44)
[2020-03-24 06:12] LABS: ALANINE AMINOTRANSFERASE 21 U/L (12-78); ALBUMIN 1.1 G/DL (3.4-5.0); ALKALINE PHOSPHATASE 131 U/L (46-116); ASPARTATE AMINO TRANSFERASE 41 U/L (15-37); BILIRUBIN,DIRECT 0.2 MG/DL (0.0-0.3); PHOSPHORUS 2.3 MG/DL (2.5-4.9)
--- NOTE | 2020-03-24 06:17 | Hematology/Onc Progress Note ---
Assessment/Plan Assessment/Plan # Leukocytosis, now with likely bacteremia, as per ID care --> Cxr: : Large left abiola consolidation/effusion --> wbc 30-->40-->27->30->29-->35->32-->28-->21->10.2-->6.6 --> ABX angelo/vanc-->tobra/edson/vanc-->dapto/ceftazadine --> smear reviewed --> ID recs are noted # Anemia of chronic disease due to underlying chronic medical issues, multifactorial --> Anemia workup has been reviewed, cw acd --> No evidence of hemolysis is noted, peripheral smear has been reviewed. --> Hgb goal >7. Transfuse prn. --> Epogen required in prior --> Medications have been reviewed --> low threshold for gi evaluation in case has occult + --> hgb 1.9-->5-->7.1-->8.8-->8.1->7.5-> 8.2-->6.8-->9.2-->8.4->7.7-->7.1 --> 1 unit prbc10/17, 2 units 01/15, 03/02, 2/, 03/24 --> gi eval as needed # Elevated tumor markers, cea and ca 19.9 --> reviewed prior 01/27/20 cat scan a/p --> no masses noted, hold off further extensive w/u # Thrombocytopenia likely reactive v medication induced --> plt 200-->129->91-->86->100->78-->86-->87 --> transfuse as needed --> r/o dic, has been ruled out --> anticoag as needed # Coagulopathy with inr 1.5 --> consider vit k/ffp as needed preprocedure --> labs noted # Aortic dissection as seen on Ct ==> when stable, consider transfer hloc # JAVIER initially >2 --> on ivfs --> per renal # Elevated d-dimer, likely infection related --> venous duplex prior neg --> in prior neg # Dysphagia s/p peg --> as per gi # Thoracic aortic dissection --> s/p repair early 2017 # Chronic Resp failure -> s/p trach/vent # Psychiatric history on ativan/haldol # [place] resident # Dvt ppx --> scds The timing of this note does not necessarily reflect the time of the patient was seen. Greatly appreciate consultation. Subjective Constitutional: Denies: no symptoms, chills, fever, malaise, weakness, other HEENT: Denies: no symptoms, eye pain, blurred vision, tearing, double vision, ear pain, ear discharge, nose pain, nose congestion, throat pain, throat swelling, mouth pain, mouth swelling, other Cardiovascular: Denies: no symptoms, chest pain, edema, irregular heart rate, lightheadedness, palpitations, syncope, other Gastrointestinal/Abdominal: Denies: no symptoms, abdomen distended, abdominal pain, black stools, tarry stools, blood in stool, constipated, diarrhea, difficulty swallowing, nausea, poor appetite, poor fluid intake, rectal bleeding, vomiting, other Neurologic/Psychiatric: Denies: no symptoms, anxiety, depressed, emotional problems, headache, numbness, paresthesia, pre-existing deficit, seizure, tingling, tremors, weakness, other Hematologic/Lymphatic: Denies: no symptoms, anemia, easy bleeding, easy bruising, adenopathy, other Allergies: Coded Allergies: No Known Allergies (Unverified , 10/10/17) Subjective 03/04 for 1 unit transfusion this am as hgb remains low, wbc better 03/05 egd was done did show large nonbleeding gastric ulcer, high tumor markers 03/06 nv, with davis overnight, bp remains stable, with occult + stool, roman Rn 03/09 nv, remains stable, on vanc/tobra/edson, meds reviewed, no bleeding 03/10 nv, on vent, no bleeding, receiving abx, no night sweats 03/11 nv, roman surgeon and pcp, with aortic dissection to transfer [facility] when stable 03/12 nv, labs reviewed, wbc 21, hgb 7.5, otherwise is comfortable 03/13 nv, labs noted, no bleeding, wbc 13, hgb improved, meds reviewed 03/15 nv, meds reviewed, labs noted, no bleeding, on vent 03/16 nv/tv, peg, meds noted, hgb remains stable, improved to 10 03/17 s/p egd, with gastric ulceration noted, hgb stable 2/3 labs noted, hgb 6.8, to get 1 unit prbc, meds reviewed 03/19 hgb 9.2, plt 78, no hemoptysis, is comfortable / labs reviewed, meds noted, no bleeding, roman rn 03/22 wound treatment, vent, with gtube, labs reviewed, roman rn 03/23 labs reviewed, meds noted, no bleeding, with gt 03/24 large bm overnight that was bloody, hgb 7.1, roman rn Objective Objective Current Medications Medications (Trade) Dose Ordered Sig/Penny Route PRN Reason Start Time Stop Time Status Last Admin Dose Admin Acetaminophen (Tylenol) 650 mg Q6H PRN GT Mild Pain (Pain Scale 1-3) 03/02/20 22:30 04/01/20 22:29 03/18/20 11:14 Acetaminophen (Tylenol) 650 mg Q6H PRN GT Temp >100.5 03/03/20 03:00 04/01/20 22:29 03/23/20 21:49 Aspirin (ASA) 81 mg DAILY GT 03/07/20 09:00 04/21/20 08:59 03/21/20 08:00 Carvedilol (Coreg) 6.25 mg EVERY 8 HOURS GT 03/20/20 22:00 04/13/20 20:59 03/24/20 06:02 Chlorhexidine Gluconate (Ling-Hex 2%) 1 applic DAILY@2000 TOPIC 03/03/20 20:00 06/01/20 19:59 03/23/20 20:00 Dextrose (Dextrose 50%) 25 ml Q30M PRN IV Hypoglycemia 03/15/20 07:30 06/13/20 07:29 Dextrose (Dextrose 50%) 50 ml Q30M PRN IV Hypoglycemia 03/15/20 07:30 06/13/20 07:29 Hydralazine HCl (Apresoline) 25 mg Q6H PRN GT For High Blood Pressure 03/02/20 22:00 05/31/20 21:59 Hydrocortisone (Anusol HC) 25 mg Q12HR RECTAL 03/23/20 21:00 06/21/20 08:59 03/23/20 20:53 Hydromorphone HCl (Dilaudid) 0.5 mg Q4H PRN IVP For Pain 03/18/20 18:30 03/25/20 18:29 03/24/20 06:03 Loperamide HCl (Imodium) 2 mg Q6H PRN GT Diarrhea 03/06/20 12:45 04/05/20 12:44 03/06/20 13:01 Metoclopramide HCl (Reglan) 5 mg Q8HR IVP 03/04/20 11:45 04/03/20 11:44 03/24/20 06:02 Midodrine (Pro-Amatine) 10 mg EVERY 8 HOURS GT 03/17/20 22:00 06/01/20 12:59 03/24/20 06:02 Pantoprazole (Protonix) 40 mg EVERY 12 HOURS IVP 03/04/20 21:00 04/02/20 20:59 03/23/20 20:53 Polyethylene Glycol (Miralax) 17 gm BEDTIME PRN GT Constipation 03/02/20 22:00 04/01/20 21:59 Sodium Hypochlorite (Dakin's Quarter Strength) 1 applic DAILY TOPIC 03/04/20 09:00 04/03/20 08:59 03/23/20 08:09 Sucralfate (Carafate) 1 gm EVERY 6 HOURS GT 03/17/20 18:00 06/09/20 08:59 03/24/20 06:02 Tramadol HCl (Ultram) 50 mg EVERY 8 HOURS GT 03/19/20 14:00 03/26/20 13:59 03/24/20 06:02 Last 24 Hour Vital Signs Date Time Temp Pulse Resp B/P (MAP) Pulse Ox O2 Delivery O2 Flow Rate FiO2 03/24/20 06:02 88 139/73 03/24/20 04:00 99.5 88 21 139/73 (95) 98 03/24/20 04:00 Mechanical Ventilator 03/24/20 04:00 40 03/24/20 03:55 58 14 40 03/24/20 03:17 58 03/24/20 00:00 Mechanical Ventilator 03/24/20 00:00 40 03/24/20 00:00 97.5 63 17 139/67 (91) 97 03/23/20 23:55 60 20 40 03/23/20 23:15 59 03/23/20 22:41 97.5 03/23/20 21:48 80 145/65 03/23/20 20:00 101.5 76 18 143/69 (93) 100 03/23/20 20:00 40 03/23/20 20:00 Mechanical Ventilator 03/23/20 19:39 70 21 40 03/23/20 19:06 61 03/23/20 16:00 97.4 62 18 124/57 (79) 100 03/23/20 16:00 71 03/23/20 16:00 Mechanical Ventilator 03/23/20 16:00 40 03/23/20 15:08 66 14 40 03/23/20 14:00 56 111/60 03/23/20 12:00 56 03/23/20 12:00 97.2 58 18 111/60 (77) 98 03/23/20 12:00 Mechanical Ventilator 03/23/20 12:00 40 03/23/20 11:17 82 22 98 03/23/20 11:16 68 20 98 03/23/20 11:03 57 15 40 03/23/20 08:00 57 03/23/20 08:00 Mechanical Ventilator 03/23/20 08:00 40 03/23/20 08:00 Mechanical Ventilator 03/23/20 08:00 97.4 61 18 119/49 (72) 100 03/23/20 07:14 53 14 40 03/23/20 05:11 61 107/61 03/23/20 04:00 Mechanical Ventilator 03/23/20 04:00 97.2 71 16 130/70 (90) 100 03/23/20 04:00 40 03/23/20 03:33 61 03/23/20 02:03 65 16 40 03/23/20 00:00 40 03/23/20 00:00 Mechanical Ventilator 03/23/20 00:00 71 03/23/20 00:00 97.9 69 17 142/67 (92) 100 03/22/20 22:07 71 135/61 03/22/20 20:00 73 03/22/20 20:00 97.7 72 20 136/63 (87) 100 03/22/20 20:00 Mechanical Ventilator 03/22/20 20:00 40 03/22/20 19:15 75 24 40 03/22/20 16:00 67 03/22/20 16:00 94.6 76 18 133/50 (77) 100 03/22/20 16:00 Mechanical Ventilator 03/22/20 16:00 40 03/22/20 14:52 71 21 40 03/22/20 12:00 40 03/22/20 12:00 Mechanical Ventilator 03/22/20 12:00 73 03/22/20 12:00 98.1 68 18 129/64 (85) 98 03/22/20 11:30 63 15 40 03/22/20 08:00 40 03/22/20 08:00 97.7 65 18 129/63 (85) 99 03/22/20 08:00 63 03/22/20 08:00 Mechanical Ventilator 03/22/20 07:10 62 17 40 Intake and Output 03/23/20 03/24/20 19:00 07:00 Intake Total 630.556 ml 485 ml Balance 630.556 ml 485 ml Intake Free Water 90 ml 100 ml IV Total 185.556 ml Tube Feeding 355 ml 385 ml # Voids 1 # Bowel Movements 3 2 Labs Test 03/21/20 23:22 03/22/20 04:30 03/22/20 05:14 03/22/20 06:15 Stool Occult Blood Positive (NEGATIVE) White Blood Count 5.3 K/UL (4.8-10.8) Red Blood Count 2.63 M/UL (4.20-5.40) Hemoglobin 7.7 G/DL (12.0-16.0) Hematocrit 23.1 % (37.0-47.0) Mean Corpuscular Volume 88 FL (80-99) Mean Corpuscular Hemoglobin 29.2 PG (27.0-31.0) Mean Corpuscular Hemoglobin Concent 33.4 G/DL (32.0-36.0) Red Cell Distribution Width 13.9 % (11.6-14.8) Platelet Count 82 K/UL (150-450) Mean Platelet Volume 8.8 FL (6.5-10.1) Neutrophils (%) (Auto) % (45.0-75.0) Lymphocytes (%) (Auto) % (20.0-45.0) Monocytes (%) (Auto) % (1.0-10.0) Eosinophils (%) (Auto) % (0.0-3.0) Basophils (%) (Auto) % (0.0-2.0) Differential Total Cells Counted 100 Neutrophils % (Manual) 87 % (45-75) Lymphocytes % (Manual) 10 % (20-45) Monocytes % (Manual) 2 % (1-10) Eosinophils % (Manual) 1 % (0-3) Basophils % (Manual) 0 % (0-2) Band Neutrophils 0 % (0-8) Other Cell Type Platelet Estimate Decreased Platelet Morphology Normal Hypochromasia 1+ Test 03/22/20 11:21 03/23/20 01:13 03/23/20 03:50 03/23/20 11:36 POC Whole Blood Glucose 98 MG/DL (74-106) 65 MG/DL (74-106) 86 MG/DL (74-106) White Blood Count 4.9 K/UL (4.8-10.8) Red Blood Count 2.59 M/UL (4.20-5.40) Hemoglobin 7.6 G/DL (12.0-16.0) Hematocrit 22.9 % (37.0-47.0) Mean Corpuscular Volume 88 FL (80-99) Mean Corpuscular Hemoglobin 29.3 PG (27.0-31.0) Mean Corpuscular Hemoglobin Concent 33.2 G/DL (32.0-36.0) Red Cell Distribution Width 14.0 % (11.6-14.8) Platelet Count 97 K/UL (150-450) Mean Platelet Volume 8.3 FL (6.5-10.1) Neutrophils (%) (Auto) % (45.0-75.0) Lymphocytes (%) (Auto) % (20.0-45.0) Monocytes (%) (Auto) % (1.0-10.0) Eosinophils (%) (Auto) % (0.0-3.0) Basophils (%) (Auto) % (0.0-2.0) Sodium Level 134 MMOL/L (136-145) Potassium Level 3.9 MMOL/L (3.5-5.1) Chloride Level 98 MMOL/L (98-107) Carbon Dioxide Level 28 MMOL/L (21-32) Anion Gap 8 mmol/L (5-15) Blood Urea Nitrogen 67 mg/dL (7-18) Creatinine 2.1 MG/DL (0.55-1.30) Estimat Glomerular Filtration Rate 25.2 mL/min (>60) Glucose Level 79 MG/DL (74-106) Calcium Level 7.4 MG/DL (8.5-10.1) Phosphorus Level 1.6 MG/DL (2.5-4.9) Magnesium Level 1.9 MG/DL (1.8-2.4) Total Bilirubin 0.5 MG/DL (0.2-1.0) Aspartate Amino Transf (AST/SGOT) 41 U/L (15-37) Alanine Aminotransferase (ALT/SGPT) 18 U/L (12-78) Alkaline Phosphatase 97 U/L (46-116) C-Reactive Protein, Quantitative 22.1 mg/dL (0.00-0.90) Pro-B-Type Natriuretic Peptide > 27839 pg/mL (0-125) Total Protein 5.0 G/DL (6.4-8.2) Albumin 1.1 G/DL (3.4-5.0) Globulin 3.9 g/dL Albumin/Globulin Ratio 0.3 (1.0-2.7) Test 03/23/20 17:19 03/23/20 20:48 03/24/20 03:45 POC Whole Blood Glucose 67 MG/DL (74-106) 80 MG/DL (74-106) White Blood Count 5.0 K/UL (4.8-10.8) Red Blood Count 2.32 M/UL (4.20-5.40) Hemoglobin 7.1 G/DL (12.0-16.0) Hematocrit 20.4 % (37.0-47.0) Mean Corpuscular Volume 88 FL (80-99) Mean Corpuscular Hemoglobin 30.7 PG (27.0-31.0) Mean Corpuscular Hemoglobin Concent 35.0 G/DL (32.0-36.0) Red Cell Distribution Width 15.6 % (11.6-14.8) Platelet Count 90 K/UL (150-450) Mean Platelet Volume 8.2 FL (6.5-10.1) Neutrophils (%) (Auto) % (45.0-75.0) Lymphocytes (%) (Auto) % (20.0-45.0) Monocytes (%) (Auto) % (1.0-10.0) Eosinophils (%) (Auto) % (0.0-3.0) Basophils (%) (Auto) % (0.0-2.0) Sodium Level 132 MMOL/L (136-145) Potassium Level 3.9 MMOL/L (3.5-5.1) Chloride Level 96 MMOL/L (98-107) Carbon Dioxide Level 27 MMOL/L (21-32) Anion Gap 9 mmol/L (5-15) Blood Urea Nitrogen 78 mg/dL (7-18) Creatinine 2.3 MG/DL (0.55-1.30) Estimat Glomerular Filtration Rate 22.7 mL/min (>60) Glucose Level 86 MG/DL (74-106) Calcium Level 6.9 MG/DL (8.5-10.1) Height (Feet): 5 Height (Inches): 3.00 Weight (Pounds): 128 Objective Physical Exam: Vitals: reviewed General: NAD HEENT: nc, at Neck: supple ++trach/vent Chest: clear breath sounds bilaterally Cardiovascular: RRR, no s3, s4 Abdomen: soft, nontender, nd +gtube Extremities: no cce, normal range of motion Neuro: alert Evan Muhammad MD Mar 24, 2020 06:17
[2020-03-24 06:28] LABS: INR 1.3 (0.9-1.1)
[2020-03-24 07:17] LABS: BILIRUBIN,TOTAL 0.4 MG/DL (0.2-1.0)
--- NOTE | 2020-03-24 07:21 | NUR ---
Report given to Day RN who assumed care of patient.
--- NOTE | 2020-03-24 07:51 | NUR ---
NURSE NOTES: Received pt from ERASMO Vasquez, pt is sleeping, pt has trach to ventilator AC 14 TV 500 PEEP 5 FIO2 40%, Pt is on continues heart monitoring. pt has g tube in place is working well. pt has plan to HD today. pt has intact iv access LFA 22G SL. All needs attended, bed is locked and is in the lowest position, call light within easy reach. will continue to monitor.
--- NOTE | 2020-03-24 07:57 | NUR ---
NURSE NOTES: HD nurse Jack is aware about HD, She stated Oozy will do. will continue to monitor.
[2020-03-24 08:00] VITALS: BP 124/61
[2020-03-24] MEDS: Pantoprazole Inj IVP SCH ×2 (08:24→20:06)
[2020-03-24] MEDS: Hydrocortisone 25mg supp RECTAL SCH ×2 (08:24→20:06)
[2020-03-24] MEDS: Aspirin Baby 81mg GT SCH (08:24)
[2020-03-24] MEDS: Dakin's 0.125% Soln (Quarter Strength) 16oz TOPIC SCH (08:25)
--- NOTE | 2020-03-24 08:35 | Infectious Diseases Prog Note ---
Assessment/Plan 49yo F with: MDR Kleb pna bacteremia AMS Anemia to 1.9 on admission 03/02 Leukocytosis to 40, improving GPC bacteremia UTI Pneumonia c/b mod-large R pleural effusion and small L pleural effusion - compressive atelectasis Hypotension 03/02 BCx 1/2 +Staph epi, 12 +Staph haemolyticus (m/l skin colonizers) UA+, UCx >100k P.stuartii (S-angelo) & CRE P.mirablis (R-polyB/colistin, S- tobramycin, per [facility] is "intrinsically resistant to Avycaz/Zerbaxa" not clear why to me and they are unable to elaborate more) COVID rapid neg, PCR neg CXR: Tracheostomy again demonstrated. Interim placement of a right jugular tunneled dialysis catheter. There is infiltrate and volume loss in the left lung, particularly in the perihilar region, suprahilar region, and base. Consolidation at the lung base is similar. The perihilar and suprahilar region consolidation is new. The right lung pleural space are clear. C.dif neg 03/03 BCx NTD 03/06 BCx 2/2 +MDR Kleb pna (arnett-R, including R-polyB, colistin), 02/14 +E.faecium VRE (R-amp, S-linezolid) 03/08 BCx NTD 03/09 CT CAP: Very limited exam, as described, due to massive anasarca. This could limit visualization of the discrete fluid collection such as an abscess. Extensive thoracoabdominal aortic dissection, as described above. Current flap begins just distal to the left subclavian artery origin; per report, there is history of surgical repair so there may have been surgical repair of the ascending thoracic aorta. Bilateral pleural effusions, slightly smaller than on earlier exams. Extensive atelectasis as a result. Extensive pulmonary par enchymal disease as detailed above. This may reflect pneumonia or pulmonary edema or both. Evidence of pulmonary arterial hypertension, with dilatation of the pulmonary artery. Considerable ascites fluid. 03/11 Chest US: Small right, trace left pleural effusions, insufficient for safe thoracentesis AF Sepsis Leukocytosis Hypoxia on vent Pneumonia c/b L pleural effusion (recurrent, prior determined to be transudative) - s/p thora 01/21, 1050cc removed Volume overload, BNP >35,0000, likely 2/2 progressive CKD --> ESRD ?Pancreatitis, Lipase >2000 Acute anemia to 5s CONS bacteremia, ?contaminant Aflutter w/ RVR 01/13 BCx 2/2 +S. epi COVID PCR neg Flu neg CXR: Large left pleural effusion. Bilateral interstitial and airspace infiltrates versus edema MRSA nares neg 01/16 BCx NTD 01/17 BCx /2 +Staph auricularis (skin colonizer) 01/18 Resp cx +MDR CRE PsA (S-gent, I-colistin, R-polyB) (Intermediate to Zerbaxa, Resistant to Avycaz) 01/18 C.dif neg 01/18 CXR: Similar opacification of the left hemithorax likely representing combination of pleural effusion with atelectasis versus pneumonia/edema. Decreased but persistent hazy opacity throughout the right lung may represent edema versus infectious/inflammatory process. 01/20 BCx NTD 01/21 L thora 1050 cc removed, cx NTD 01/25 Wound cx from Gtube site +CRE Kleb pna (arnett-R) and MDR PsA (colonizers) 01/26 CT A/P: Limited exam, due to severe diffuse anasarca. Ascites. Bilateral pleural effusions. Basilar pulmonary atelectatic changes and consolidation. Gastrostomy. Atrophic left kidney with a nephroureteral stents again demonstrated. Possible retrococcygeal decubitus changes. Correlate with clinical findings, consider MRI if there is concern for sacral osteomyelitis. Right hip intertrochanteric fracture, also previously demonstrated. Left femoral dialysis catheter. Nonspecific right lobe liver lesion is unchanged, not well- demonstrated. ctasia bordering on aneurysmal dilatation and possible chronic dissection of the distal thoracic aorta, also previously described. JAVIER on CKD On previous admission Sep-Oct 2019 required HD for short period Going to start HD this admission again R/o COVID 01/14 COVID PCR neg 12/[address] [facility] per report H/o UTI 10/15 u/a wbc 30-40, nit neg, leuk +3; ucx ESBL P. mirablis, ESBL M. morganii //20 u/a wbc tnct, nit neg, leuk +3; ucx >100k MDR P. stuarti (S Ceftriaxone, Meropenem) 8/25 u/a wbc tnct, nit neg, leuk ; ucx >100k VRE 10/15/19 u/a wbc tnct; ucx >100k ESBL P. stuarti (S ertapenem, aztreonam) H/o transudative pleural effusion 11/28 Sp Thora (w: 169, PMN: 2%, L: 49% , LDH: 57, prot 2.5); cx Neg H/o PNA 10/15/19 Resp cx ESBL P. mirabilis, MDR P.a. (S only to Gent) 09/22 Resp cx + MDR PsA (S-gent; I-colistin; R-levofloxacin, Zosyn, angelo) 09/16/19 Sp cx ESBL P. mirablis H/o PPM site (pocket) infection and pocket abscess 2ry to S. epi-11/2018, sp >6weeks IV vancomycin 11/27 SP ABBIE: no evidence for vegetation on any of the valves 11/26/18 SP PPM removal: OR findings:The fibrous capsule enclosing the generator was then opened and there was a [id number] amount of yellowish fluid drainage. The generator was then removed.Atrial and ventricular leads were detached. The necrotic tissue of the pocket was then removed and the pocket was flushed with an antibiotic solution. Capsule, wound tissue and lead tip cx: Neg 2d echo: no vegetation seen US chest: 4.6 x 3.4 x 0.9 cm hypoechoic/anechoic area overlying left chest pacemaker power pack. This could represent either a discrete fluid collection or a focal area of very edematous tissue. Infected fluid pocket also possible. 11/18 Bcx 3/4 S. epi; 11/20 Bcx neg; 11/24 Bcx Neg; 11/27 Bcx Neg CAD s/p CABG GERD/gastritis Afib HTN Dysphagia sp GT Aortic dissection s/p repair 2017 S/p PPM Parkinson's Disease Schizophrenia Anxiety COPD Chronic resp failure s/p trach Hx of tracheal bleeding [place] resident ([facility]) VRE and MRSA colonized Plan: Cont to monitor off abx Trend temp curve closely Appreciate Surgery input on thoracic aortic aneurysm noted on CT imaging - d/w Dr. Saavedra Pt needs emergent transfer out to [facility] for CT surgery evaluation, primary MD aware Trend Hg, GIB 03/21 SP daptomycin #12, Avycaz #16 for VRE and MDR Kleb bacteremia 03/16 SP tobramycin IV #10 for resistant UTI 03/10/20 SP edson #4 empiric, vanco #9 01/31 SP angelo/inh tobra #10 for pna 01/23 SP vanco IV #10 given CONS/GPC bacteremia 01/16 SP Zosyn #2 01/14 SP dex 10mg in ED 12/10 SP IV Gentamycin #10 12/07 SP Meropenem #10 12/01 SP IV Vancomycin #5 11/28 Sp Cefepime #2 and IV Gentamycin x1 Monitor CBC/CMP Monitor temp curve, hemodynamics Monitor resp status D/w RN Thank you for this consult. [facility] will continue to follow. Subjective Allergies: Coded Allergies: No Known Allergies (Unverified , 10/10/17) Tmax 101.5 NAD on vent 40% PEEP 5 WBC 5.0 Objective Last 24 Hour Vital Signs Date Time Temp Pulse Resp B/P (MAP) Pulse Ox O2 Delivery O2 Flow Rate FiO2 03/24/20 08:00 Mechanical Ventilator 03/24/20 08:00 40 03/24/20 06:02 88 139/73 03/24/20 04:00 99.5 88 21 139/73 (95) 98 03/24/20 04:00 Mechanical Ventilator 03/24/20 04:00 40 03/24/20 03:55 58 14 40 03/24/20 03:17 58 03/24/20 00:00 Mechanical Ventilator 03/24/20 00:00 40 03/24/20 00:00 97.5 63 17 139/67 (91) 97 03/23/20 23:55 60 20 40 03/23/20 23:15 59 03/23/20 22:41 97.5 03/23/20 21:48 80 145/65 03/23/20 20:00 101.5 76 18 143/69 (93) 100 03/23/20 20:00 40 03/23/20 20:00 Mechanical Ventilator 03/23/20 19:39 70 21 40 03/23/20 19:06 61 03/23/20 16:00 97.4 62 18 124/57 (79) 100 03/23/20 16:00 71 03/23/20 16:00 Mechanical Ventilator 03/23/20 16:00 40 03/23/20 15:08 66 14 40 03/23/20 14:00 56 111/60 03/23/20 12:00 56 03/23/20 12:00 97.2 58 18 111/60 (77) 98 03/23/20 12:00 Mechanical Ventilator 03/23/20 12:00 40 03/23/20 11:17 82 22 98 03/23/20 11:16 68 20 98 03/23/20 11:03 57 15 40 Height (Feet): 5 Height (Inches): 3.00 Weight (Pounds): 128 Gen: NAD HEENT: NCAT, trach Pulm: BL chest rise on vent Abd: Soft, NTND, +PEG Ext: No c/c/e Skin: No visible rashes Neuro: Awake, minimally interactive Lines: R chest Permacath dressing c/d/i Laboratory Tests Test 03/23/20 11:36 03/23/20 17:19 03/23/20 20:48 03/24/20 03:45 POC Whole Blood Glucose 86 MG/DL (74-106) 67 MG/DL (74-106) L 80 MG/DL (74-106) White Blood Count 5.0 K/UL (4.8-10.8) Red Blood Count 2.32 M/UL (4.20-5.40) L Hemoglobin 7.1 G/DL (12.0-16.0) L Hematocrit 20.4 % (37.0-47.0) L Mean Corpuscular Volume 88 FL (80-99) Mean Corpuscular Hemoglobin 30.7 PG (27.0-31.0) Mean Corpuscular Hemoglobin Concent 35.0 G/DL (32.0-36.0) Red Cell Distribution Width 15.6 % (11.6-14.8) H Platelet Count 90 K/UL (150-450) L Mean Platelet Volume 8.2 FL (6.5-10.1) Neutrophils (%) (Auto) % (45.0-75.0) Lymphocytes (%) (Auto) % (20.0-45.0) Monocytes (%) (Auto) % (1.0-10.0) Eosinophils (%) (Auto) % (0.0-3.0) Basophils (%) (Auto) % (0.0-2.0) Prothrombin Time 14.1 SEC (9.30-11.50) H Prothromb Time International Ratio 1.3 (0.9-1.1) H Activated Partial Thromboplast Time 30 SEC (23-33) Sodium Level 132 MMOL/L (136-145) L Potassium Level 3.9 MMOL/L (3.5-5.1) Chloride Level 96 MMOL/L (98-107) L Carbon Dioxide Level 27 MMOL/L (21-32) Anion Gap 9 mmol/L (5-15) Blood Urea Nitrogen 78 mg/dL (7-18) H Creatinine 2.3 MG/DL (0.55-1.30) H Estimat Glomerular Filtration Rate 22.7 mL/min (>60) Glucose Level 86 MG/DL (74-106) Calcium Level 6.9 MG/DL (8.5-10.1) L Phosphorus Level 2.3 MG/DL (2.5-4.9) L Magnesium Level 2.0 MG/DL (1.8-2.4) Total Bilirubin 0.4 MG/DL (0.2-1.0) Direct Bilirubin 0.2 MG/DL (0.0-0.3) Aspartate Amino Transf (AST/SGOT) 41 U/L (15-37) H Alanine Aminotransferase (ALT/SGPT) 21 U/L (12-78) Alkaline Phosphatase 131 U/L (46-116) H C-Reactive Protein, Quantitative 18.1 mg/dL (0.00-0.90) H Pro-B-Type Natriuretic Peptide > 03773 pg/mL (0-125) H Total Protein 4.6 G/DL (6.4-8.2) L Albumin 1.1 G/DL (3.4-5.0) L Current Medications Medications (Trade) Dose Ordered Sig/Penny Route PRN Reason Start Time Stop Time Status Last Admin Dose Admin Acetaminophen (Tylenol) 650 mg Q6H PRN GT Mild Pain (Pain Scale 1-3) 03/02/20 22:30 04/01/20 22:29 03/18/20 11:14 Acetaminophen (Tylenol) 650 mg Q6H PRN GT Temp >100.5 03/03/20 03:00 04/01/20 22:29 03/23/20 21:49 Aspirin (ASA) 81 mg DAILY GT 03/07/20 09:00 04/21/20 08:59 03/24/20 08:24 Carvedilol (Coreg) 6.25 mg EVERY 8 HOURS GT 03/20/20 22:00 04/13/20 20:59 03/24/20 06:02 Chlorhexidine Gluconate (Ling-Hex 2%) 1 applic DAILY@2000 TOPIC 03/03/20 20:00 06/01/20 19:59 03/23/20 20:00 Dextrose (Dextrose 50%) 25 ml Q30M PRN IV Hypoglycemia 03/15/20 07:30 06/13/20 07:29 Dextrose (Dextrose 50%) 50 ml Q30M PRN IV Hypoglycemia 03/15/20 07:30 06/13/20 07:29 Hydralazine HCl (Apresoline) 25 mg Q6H PRN GT For High Blood Pressure 03/02/20 22:00 05/31/20 21:59 Hydrocortisone (Anusol HC) 25 mg Q12HR RECTAL 03/23/20 21:00 06/21/20 08:59 03/24/20 08:24 Hydromorphone HCl (Dilaudid) 0.5 mg Q4H PRN IVP For Pain 03/18/20 18:30 03/25/20 18:29 03/24/20 06:03 Loperamide HCl (Imodium) 2 mg Q6H PRN GT Diarrhea 03/06/20 12:45 04/05/20 12:44 03/06/20 13:01 Metoclopramide HCl (Reglan) 5 mg Q8HR IVP 03/04/20 11:45 04/03/20 11:44 03/24/20 06:02 Midodrine (Pro-Amatine) 10 mg EVERY 8 HOURS GT 03/17/20 22:00 06/01/20 12:59 03/24/20 06:02 Pantoprazole (Protonix) 40 mg EVERY 12 HOURS IVP 03/04/20 21:00 04/02/20 20:59 03/24/20 08:24 Polyethylene Glycol (Miralax) 17 gm BEDTIME PRN GT Constipation 03/02/20 22:00 04/01/20 21:59 Sodium Hypochlorite (Dakin's Quarter Strength) 1 applic DAILY TOPIC 03/04/20 09:00 04/03/20 08:59 03/24/20 08:25 Sucralfate (Carafate) 1 gm EVERY 6 HOURS GT 03/17/20 18:00 06/09/20 08:59 03/24/20 06:02 Tramadol HCl (Ultram) 50 mg EVERY 8 HOURS GT 03/19/20 14:00 03/26/20 13:59 03/24/20 06:02 Ro Pack M.D. Mar 24, 2020 08:35
--- NOTE | 2020-03-24 08:50 | General Progress Note ---
Subjective ROS Limited/Unobtainable: No Allergies: Coded Allergies: No Known Allergies (Unverified , 10/10/17) Objective Last 24 Hour Vital Signs Date Time Temp Pulse Resp B/P (MAP) Pulse Ox O2 Delivery O2 Flow Rate FiO2 03/24/20 08:00 Mechanical Ventilator 03/24/20 08:00 40 03/24/20 08:00 96.6 60 21 124/61 (82) 98 03/24/20 06:02 88 139/73 03/24/20 04:00 99.5 88 21 139/73 (95) 98 03/24/20 04:00 Mechanical Ventilator 03/24/20 04:00 40 03/24/20 03:55 58 14 40 03/24/20 03:17 58 03/24/20 00:00 Mechanical Ventilator 03/24/20 00:00 40 03/24/20 00:00 97.5 63 17 139/67 (91) 97 03/23/20 23:55 60 20 40 03/23/20 23:15 59 03/23/20 22:41 97.5 03/23/20 21:48 80 145/65 03/23/20 20:00 101.5 76 18 143/69 (93) 100 03/23/20 20:00 40 03/23/20 20:00 Mechanical Ventilator 03/23/20 19:39 70 21 40 03/23/20 19:06 61 03/23/20 16:00 97.4 62 18 124/57 (79) 100 03/23/20 16:00 71 03/23/20 16:00 Mechanical Ventilator 03/23/20 16:00 40 03/23/20 15:08 66 14 40 03/23/20 14:00 56 111/60 03/23/20 12:00 56 03/23/20 12:00 97.2 58 18 111/60 (77) 98 03/23/20 12:00 Mechanical Ventilator 03/23/20 12:00 40 03/23/20 11:17 82 22 98 03/23/20 11:16 68 20 98 03/23/20 11:03 57 15 40 Intake and Output 03/23/20 03/24/20 19:00 07:00 Intake Total 630.556 ml 485 ml Balance 630.556 ml 485 ml Intake Free Water 90 ml 100 ml IV Total 185.556 ml Tube Feeding 355 ml 385 ml # Voids 1 # Bowel Movements 3 2 Laboratory Tests 03/23/20 11:36: POC Whole Blood Glucose 86 03/23/20 17:19: POC Whole Blood Glucose 67L 03/23/20 20:48: POC Whole Blood Glucose 80 03/24/20 03:45: White Blood Count 5.0, Red Blood Count 2.32L, Hemoglobin 7.1L, Hematocrit 20.4L, Mean Corpuscular Volume 88, Mean Corpuscular Hemoglobin 30.7, Mean Corpuscular Hemoglobin Concent 35.0, Red Cell Distribution Width 15.6H, Platelet Count 90L, Mean Platelet Volume 8.2, Neutrophils (%) (Auto) , Lymphocytes (%) (Auto) , Monocytes (%) (Auto) , Eosinophils (%) (Auto) , Basophils (%) (Auto) , Prothrombin Time 14.1H, Prothromb Time International Ratio 1.3H, Activated Partial Thromboplast Time 30, Sodium Level 132L, Potassium Level 3.9, Chloride Level 96L, Carbon Dioxide Level 27, Anion Gap 9, Blood Urea Nitrogen 78H, Creatinine 2.3H, Estimat Glomerular Filtration Rate 22.7, Glucose Level 86, Calcium Level 6.9L, Phosphorus Level 2.3L, Magnesium Level 2.0, Total Bilirubin 0.4, Direct Bilirubin 0.2, Aspartate Amino Transf (AST/SGOT) 41H, Alanine Aminotransferase (ALT/SGPT) 21, Alkaline Phosphatase 131H, C-Reactive Protein, Quantitative 18.1H, Pro-B-Type Natriuretic Peptide > 62564P, Total Protein 4.6L, Albumin 1.1L Height (Feet): 5 Height (Inches): 3.00 Weight (Pounds): 128 General Appearance: no apparent distress EENT: normal ENT inspection Neck: supple Cardiovascular: normal rate Respiratory/Chest: decreased breath sounds Abdomen: normal bowel sounds, non tender, soft Extremities: non-tender Assessment/Plan Problem List: (1) Hx of CABG ICD Codes: Z95.1 - Presence of aortocoronary bypass graft SNOMED: 351502062, 374432106 (2) History of tracheostomy ICD Codes: Z98.890 - Other specified postprocedural states SNOMED: 651321026, 664997719 (3) PEG (percutaneous endoscopic gastrostomy) status ICD Codes: Z93.1 - Gastrostomy status SNOMED: 136846207, 604912144 (4) Renal failure ICD Codes: N19 - Unspecified kidney failure SNOMED: 63802307, 934190780 (5) Severe anemia ICD Codes: D64.9 - Anemia, unspecified SNOMED: 075452106 Assessment/Plan: s/p EGD gastric ulcer on ppi and carafate fu H&H GTF s/p EGD pending HD today repeat labs will fu Inder Mccauley MD Mar 24, 2020 08:50
--- NOTE | 2020-03-24 09:02 | Pulmonology Progress Note ---
Subjective ROS Limited/Unobtainable: No Interval Events: fever overnight; Eeck=686.5 Constitutional: Reports: fever HEENT: Repors: no symptoms Respiratory: Reports: no symptoms Cardiovascular: Reports: no symptoms Gastrointestinal/Abdominal: Reports: diarrhea Allergies: Coded Allergies: No Known Allergies (Unverified , 10/10/17) All Systems: reviewed and negative except above Objective Last 24 Hour Vital Signs Date Time Temp Pulse Resp B/P (MAP) Pulse Ox O2 Delivery O2 Flow Rate FiO2 03/24/20 08:00 Mechanical Ventilator 03/24/20 08:00 40 03/24/20 08:00 96.6 60 21 124/61 (82) 98 03/24/20 06:02 88 139/73 03/24/20 04:00 99.5 88 21 139/73 (95) 98 03/24/20 04:00 Mechanical Ventilator 03/24/20 04:00 40 03/24/20 03:55 58 14 40 03/24/20 03:17 58 03/24/20 00:00 Mechanical Ventilator 03/24/20 00:00 40 03/24/20 00:00 97.5 63 17 139/67 (91) 97 03/23/20 23:55 60 20 40 03/23/20 23:15 59 03/23/20 22:41 97.5 03/23/20 21:48 80 145/65 03/23/20 20:00 101.5 76 18 143/69 (93) 100 03/23/20 20:00 40 03/23/20 20:00 Mechanical Ventilator 03/23/20 19:39 70 21 40 03/23/20 19:06 61 03/23/20 16:00 97.4 62 18 124/57 (79) 100 03/23/20 16:00 71 03/23/20 16:00 Mechanical Ventilator 03/23/20 16:00 40 03/23/20 15:08 66 14 40 03/23/20 14:00 56 111/60 03/23/20 12:00 56 03/23/20 12:00 97.2 58 18 111/60 (77) 98 03/23/20 12:00 Mechanical Ventilator 03/23/20 12:00 40 03/23/20 11:17 82 22 98 03/23/20 11:16 68 20 98 03/23/20 11:03 57 15 40 Intake and Output 03/23/20 03/24/20 19:00 07:00 Intake Total 630.556 ml 485 ml Balance 630.556 ml 485 ml Intake Free Water 90 ml 100 ml IV Total 185.556 ml Tube Feeding 355 ml 385 ml # Voids 1 # Bowel Movements 3 2 General Appearance: no acute distress HEENT: atraumatic Respiratory: lungs clear Cardiovascular: normal rate, regular rhythm Extremities: other - edema bilateral Laboratory Tests 03/23/20 11:36: POC Whole Blood Glucose 86 03/23/20 17:19: POC Whole Blood Glucose 67L 03/23/20 20:48: POC Whole Blood Glucose 80 03/24/20 03:45: White Blood Count 5.0, Red Blood Count 2.32L, Hemoglobin 7.1L, Hematocrit 20.4L, Mean Corpuscular Volume 88, Mean Corpuscular Hemoglobin 30.7, Mean Corpuscular Hemoglobin Concent 35.0, Red Cell Distribution Width 15.6H, Platelet Count 90L, Mean Platelet Volume 8.2, Neutrophils (%) (Auto) , Lymphocytes (%) (Auto) , Mo nocytes (%) (Auto) , Eosinophils (%) (Auto) , Basophils (%) (Auto) , Prothrombin Time 14.1H, Prothromb Time International Ratio 1.3H, Activated Partial Thromboplast Time 30, Sodium Level 132L, Potassium Level 3.9, Chloride Level 96L , Carbon Dioxide Level 27, Anion Gap 9, Blood Urea Nitrogen 78H, Creatinine 2.3H , Estimat Glomerular Filtration Rate 22.7, Glucose Level 86, Calcium Level 6.9L, Phosphorus Level 2.3L, Magnesium Level 2.0, Total Bilirubin 0.4, Direct Bilirub in 0.2, Aspartate Amino Transf (AST/SGOT) 41H, Alanine Aminotransferase (ALT/SGPT) 21, Alkaline Phosphatase 131H, C-Reactive Protein, Quantitative 18.1H , Pro-B-Type Natriuretic Peptide > 84477X, Total Protein 4.6L, Albumin 1.1L Current Medications Medications (Trade) Dose Ordered Sig/Penny Route PRN Reason Start Time Stop Time Status Last Admin Dose Admin Acetaminophen (Tylenol) 650 mg Q6H PRN GT Mild Pain (Pain Scale 1-3) 03/02/20 22:30 04/01/20 22:29 03/18/20 11:14 Acetaminophen (Tylenol) 650 mg Q6H PRN GT Temp >100.5 03/03/20 03:00 04/01/20 22:29 03/23/20 21:49 Aspirin (ASA) 81 mg DAILY GT 03/07/20 09:00 04/21/20 08:59 03/24/20 08:24 Carvedilol (Coreg) 6.25 mg EVERY 8 HOURS GT 03/20/20 22:00 04/13/20 20:59 03/24/20 06:02 Chlorhexidine Gluconate (Ling-Hex 2%) 1 applic DAILY@1999 TOPIC 03/03/20 20:00 06/01/20 19:59 03/23/20 20:00 Dextrose (Dextrose 50%) 25 ml Q30M PRN IV Hypoglycemia 03/15/20 07:30 06/13/20 07:29 Dextrose (Dextrose 50%) 50 ml Q30M PRN IV Hypoglycemia 03/15/20 07:30 06/13/20 07:29 Hydralazine HCl (Apresoline) 25 mg Q6H PRN GT For High Blood Pressure 03/02/20 22:00 05/31/20 21:59 Hydrocortisone (Anusol HC) 25 mg Q12HR RECTAL 03/23/20 21:00 06/21/20 08:59 03/24/20 08:24 Hydromorphone HCl (Dilaudid) 0.5 mg Q4H PRN IVP For Pain 03/18/20 18:30 03/25/20 18:29 03/24/20 06:03 Loperamide HCl (Imodium) 2 mg Q6H PRN GT Diarrhea 03/06/20 12:45 04/05/20 12:44 03/06/20 13:01 Metoclopramide HCl (Reglan) 5 mg Q8HR IVP 03/04/20 11:45 04/03/20 11:44 03/24/20 06:02 Midodrine (Pro-Amatine) 10 mg EVERY 8 HOURS GT 03/17/20 22:00 06/01/20 12:59 03/24/20 06:02 Pantoprazole (Protonix) 40 mg EVERY 12 HOURS IVP 03/04/20 21:00 04/02/20 20:59 03/24/20 08:24 Polyethylene Glycol (Miralax) 17 gm BEDTIME PRN GT Constipation 03/02/20 22:00 04/01/20 21:59 Sodium Hypochlorite (Dakin's Quarter Strength) 1 applic DAILY TOPIC 03/04/20 09:00 04/03/20 08:59 03/24/20 08:25 Sucralfate (Carafate) 1 gm EVERY 6 HOURS GT 03/17/20 18:00 06/09/20 08:59 03/24/20 06:02 Tramadol HCl (Ultram) 50 mg EVERY 8 HOURS GT 03/19/20 14:00 03/26/20 13:59 03/24/20 06:02 Assessment/Plan Assessment/Plan 1. Chronic respiratory failure. - CT chest/abd/pelv: improving pleural effusion 2. Mechanical ventilation. - current setting at AC 14, Vt 500, FiO2 40%, PEEP 5 saturating well - continue current setting - suction secretions as needed 3. Chronic tracheostomy. 4. Chronic G-tube. 5. Anemia. - s/p transfusion - stool OB positive (03/02, 03/03, 03/22) - off anticoags 6. Renal failure. 7. Leukocytosis and sepsis. - WBC now resolved 8. Sepsis UTI 9. Gram positive cocci bacteremia - f/u BCx negative for growth 10. COVID-19 negative 11. Diarrhea - C. diff neg 12. Hypoglycemia - resolved 13. Bradycardia - no urgent indication for pacemaker per cardio 14. Gastric ulcer - on PPI - GI following 15. Pleural effusion - small; insufficient volume for safe thoracentesis 16. thoracic aortic aneurysm - noted on CT imaging - pt needs emergent transfer out to [facility] for CT surgery evaluation, primary MD aware - Pt might not be a candidate for TAA repair 17. Ascites - s/p paracentesis (2/), 2.3L out The care of this patient was discussed with my supervising physician Time spent for this encounter was approximately 31 minutes Cruz Wilson Mar 24, 2020 09:02
--- NOTE | 2020-03-24 09:10 | NUR ---
CASE MANAGEMENT:REVIEW 03/23/20 SI: SEPSIS. [facility] BACTEREMIA. AORTIC DISSECTION ANEMIA...S/P 13 UNITS PRBC'S. TRACH/VENT/GTUBE 99.5 60 21 124/61 98% ON VENT SUPPORT W/40% FIO2 H/H-7.1/20.4 PLT-90 BUN+78 CR+2.3 IS: ANUSOL UT Q12 COREG GT Q8HRS ULTRAM GT Q8HRS MIDODRINE GT Q8HRS CARAFATE GT Q6HRS ASA GT QD IV PROTONIX Q12 IV REGLAN Q8HRS : STEP DOWN UNIT DCP: FROM [facility] PL[facility]: OBSERVE.....ACTIVELY BLEEDING FROM HEMORRHOIDS
--- NOTE | 2020-03-24 10:02 | NUR ---
NURSE NOTES: Dr Muhammad is aware about HB 7.1, ordered 1 bag PRBC during HD, noted and carried out.
--- NOTE | 2020-03-24 11:22 | Nephrology Progress Note ---
Assessment/Plan Problem List: (1) Renal failure (ARF), acute on chronic (2) Anemia (3) Hyponatremia (4) Respiratory failure Assessment (1) JAVIER (acute kidney injury) (2) Renal failure (ARF), acute on chronic (3) Feeding by G-tube (4) Tracheostomy in place (5) Electrolyte imbalance, hyponatremia (6) Anemia, severe (7) Respiratory failure, acute and chronic (8) history of elevated lipase, pancreatitis (9) Elevated troponin I (10) Sepsis Plan March 24: Labs reviewed. Due for dialysis today. Continue per current management. Hemoglobin lower. Transfusion per vp treasurer. March 23: Labs reviewed. Dialyzed yesterday. Next dialysis tomorrow. Anemia management per vp treasurer. March 22: Labs reviewed. Due for dialysis today. Discussed with RN. Agree with discontinuation of the Norman catheter. Hemoglobin lower. Transfusion per vp treasurer. March 21: Labs reviewed. Will arrange for dialysis tomorrow. Continue per consultants. Will hold phosphorus binders at this time. March 20: Labs reviewed. Patient was dialyzed yesterday. Electrolyte ab normalities corrected. Continue per current management. March 19: Due for dialysis today. Abnormal labs noted. All will be corrected after dialysis. March 18: Labs reviewed. Will dialyze tomorrow. Patient being transfused today. Patient due for abdominal paracentesis. We will keep the Norman in. Continue to monitor renal parameters and dialyze as needed. March 17: No CHEM panel done today. CBC reviewed. Hemoglobin is lowering. Dialyzed yesterday. Will check lab tomorrow. Continue per consultants. March 16: Labs reviewed. Due for dialysis today. Hemoglobin 10.2 today. Continue to monitor renal parameters. March 15: Labs reviewed. Dialyzed March 13. Due for dialysis March 16. Hemoglobin lower. 1 unit of packed RBCs ordered. Per orders. March 14: No labs drawn today. Dialyzed yesterday. Full code. Will check lab tomorrow. Dialysis as needed. March 13: Labs reviewed. Due for dialysis today. Patient remains full code. Continue per current management. March 12: Labs reviewed. Dialyzed yesterday. Due for dialysis tomorrow. Discussed with RN. Patient full code. Continue per current management. March 11: Labs reviewed. Dialyzed this morning. Phosphorus binders dose adjusted. Continue per consultants. Continue to monitor renal parameters. CT: Extensive thoracoabdominal aortic dissection March 10: Labs reviewed. Will order dialysis tomorrow. Phosphorus binders added. Continue per consultants. March 09: No chemistry panel done today. Patient dialyzed yesterday. On dextrose 10% for hypoglycemia. We will check labs tomorrow. Dialysis as ne eded. March 08: Labs reviewed. Will order dialysis today. Blood sugar low. D10 50 cc an hour started. Continue as is. March 07: Labs reviewed. Dialyzed March 05 and March 06. Continue to monitor renal parameters and hemoglobin. Abnormal electrolytes addressed. IV fluids stopped. Per orders. March 06: Labs reviewed. Dialyzed yesterday. Will reorder dialysis for today. Continue to monitor renal parameters. Hemoglobin 8.4. Patient full code. March 05: Labs reviewed. Patient did not receive dialysis until this morning. Proceed with dialysis. Continue to monitor renal parameters and hemoglobin and hematocrit. March 04: Labs reviewed. Hemoglobin lower. Patient actively bleeding. Was not dialyzed yesterday. Due for GI endoscopy. Continue fluid challenge. Transfusion as needed. Dialysis today. March 03: Labs reviewed. Dialysis ordered. Blood pressure medication all discontinued due to hypotensive state. Albumin bolus given. Continue to monitor renal parameters. Medication list reviewed. Midodrin for low blood pressure ordered Subjective ROS Limited/Unobtainable: Yes Objective Objective Last 24 Hour Vital Signs Date Time Temp Pulse Resp B/P (MAP) Pulse Ox O2 Delivery O2 Flow Rate FiO2 03/24/20 08:00 Mechanical Ventilator 03/24/20 08:00 40 03/24/20 08:00 59 03/24/20 08:00 96.6 60 21 124/61 (82) 98 03/24/20 06:45 58 14 40 03/24/20 06:02 88 139/73 03/24/20 04:00 99.5 88 21 139/73 (95) 98 03/24/20 04:00 Mechanical Ventilator 03/24/20 04:00 40 03/24/20 03:55 58 14 40 03/24/20 03:17 58 03/24/20 00:00 Mechanical Ventilator 03/24/20 00:00 40 03/24/20 00:00 97.5 63 17 139/67 (91) 97 03/23/20 23:55 60 20 40 03/23/20 23:15 59 03/23/20 22:41 97.5 03/23/20 21:48 80 145/65 03/23/20 20:00 101.5 76 18 143/69 (93) 100 03/23/20 20:00 40 03/23/20 20:00 Mechanical Ventilator 03/23/20 19:39 70 21 40 03/23/20 19:06 61 03/23/20 16:00 97.4 62 18 124/57 (79) 100 03/23/20 16:00 71 03/23/20 16:00 Mechanical Ventilator 03/23/20 16:00 40 03/23/20 15:08 66 14 40 03/23/20 14:00 56 111/60 03/23/20 12:00 56 03/23/20 12:00 97.2 58 18 111/60 (77) 98 03/23/20 12:00 Mechanical Ventilator 03/23/20 12:00 40 Intake and Output 03/23/20 03/24/20 19:00 07:00 Intake Total 630.556 ml 485 ml Balance 630.556 ml 485 ml Intake Free Water 90 ml 100 ml IV Total 185.556 ml Tube Feeding 355 ml 385 ml # Voids 1 # Bowel Movements 3 2 Current Medications Medications (Trade) Dose Ordered Sig/Penny Route PRN Reason Start Time Stop Time Status Last Admin Dose Admin Acetaminophen (Tylenol) 650 mg Q6H PRN GT Mild Pain (Pain Scale 1-3) 03/02/20 22:30 04/01/20 22:29 03/18/20 11:14 Acetaminophen (Tylenol) 650 mg Q6H PRN GT Temp >100.5 03/03/20 03:00 04/01/20 22:29 03/23/20 21:49 Aspirin (ASA) 81 mg DAILY GT 03/07/20 09:00 04/21/20 08:59 03/24/20 08:24 Carvedilol (Coreg) 6.25 mg EVERY 8 HOURS GT 03/20/20 22:00 04/13/20 20:59 03/24/20 06:02 Chlorhexidine Gluconate (Ling-Hex 2%) 1 applic DAILY@1999 TOPIC 03/03/20 20:00 06/01/20 19:59 03/23/20 20:00 Dextrose (Dextrose 50%) 25 ml Q30M PRN IV Hypoglycemia 03/15/20 07:30 51/21 07:29 Dextrose (Dextrose 50%) 50 ml Q30M PRN IV Hypoglycemia 03/15/20 07:30 06/13/20 07:29 Hydralazine HCl (Apresoline) 25 mg Q6H PRN GT For High Blood Pressure 03/02/20 22:00 05/31/20 21:59 Hydrocortisone (Anusol HC) 25 mg Q12HR RECTAL 03/23/20 21:00 06/21/20 08:59 03/24/20 08:24 Hydromorphone HCl (Dilaudid) 0.5 mg Q4H PRN IVP For Pain 03/18/20 18:30 03/25/20 18:29 03/24/20 06:03 Loperamide HCl (Imodium) 2 mg Q6H PRN GT Diarrhea 03/06/20 12:45 04/05/20 12:44 03/06/20 13:01 Metoclopramide HCl (Reglan) 5 mg Q8HR IVP 03/04/20 11:45 04/03/20 11:44 03/24/20 06:02 Midodrine (Pro-Amatine) 10 mg EVERY 8 HOURS GT 03/17/20 22:00 06/01/20 12:59 03/24/20 06:02 Pantoprazole (Protonix) 40 mg EVERY 12 HOURS IVP 03/04/20 21:00 04/02/20 20:59 03/24/20 08:24 Polyethylene Glycol (Miralax) 17 gm BEDTIME PRN GT Constipation 03/02/20 22:00 04/01/20 21:59 Sodium Hypochlorite (Dakin's Quarter Strength) 1 applic DAILY TOPIC 03/04/20 09:00 04/03/20 08:59 03/24/20 08:25 Sucralfate (Carafate) 1 gm EVERY 6 HOURS GT 03/17/20 18:00 06/09/20 08:59 03/24/20 06:02 Tramadol HCl (Ultram) 50 mg EVERY 8 HOURS GT 03/19/20 14:00 03/26/20 13:59 03/24/20 06:02 Laboratory Tests 03/23/20 11:36: POC Whole Blood Glucose 86 03/23/20 17:19: POC Whole Blood Glucose 67L 03/23/20 20:48: POC Whole Blood Glucose 80 03/24/20 03:45: White Blood Count 5.0, Red Blood Count 2.32L, Hemoglobin 7.1L, Hematocrit 20.4L, Mean Corpuscular Volume 88, Mean Corpuscular Hemoglobin 30.7, Mean Corpuscular Hemoglobin Concent 35.0, Red Cell Distribution Width 15.6H, Platelet Count 90L, Mean Platelet Volume 8.2, Neutrophils (%) (Auto) , Lymphocytes (%) (Auto) , Monocytes (%) (Auto) , Eosinophils (%) (Auto) , Basophils (%) (Auto) , Prothrombin Time 14.1H, Prothromb Time International Ratio 1.3H, Activated Partial Thromboplast Time 30, Sodium Level 132L, Potassium Level 3.9, Chloride Level 96L, Carbon Dioxide Level 27, Anion Gap 9, Blood Urea Nitrogen 78H, Creatinine 2.3H, Estimat Glomerular Filtration Rate 22.7, Glucose Level 86, Calcium Level 6.9L, Phosphorus Level 2.3L, Magnesium Level 2.0, Total Bilirubin 0.4, Direct Bilirubin 0.2, Aspartate Amino Transf (AST/SGOT) 41H, Alanine Aminotransferase (ALT/SGPT) 21, Alkaline Phosphatase 131H, C-Reactive Protein, Quantitative 18.1H, Pro-B-Type Natriuretic Peptide > [id number], Total Protein 4.6L, Albumin 1.1L Height (Feet): 5 Height (Inches): 3.00 Weight (Pounds): 128 General Appearance: no apparent distress EENT: other - On vent, trach Cardiovascular: bradycardia Respiratory/Chest: decreased breath sounds Abdomen: distended Johnny Houston MD Mar 24, 2020 11:22
--- NOTE | 2020-03-24 11:25 | NUR ---
NURSE NOTES: Received pt from ER at 0900, pt is awake and confused, Pt tries to get out of bed and take off bipap, pt has bipap 16/4 fio2 30%, Pt is on continues heart monitoring. pt has plan to HD today. pt has R chest perm cath and pt has intact iv access RAC 20G and L wrist 22G SL. Dr low ordered to change attending to Dr Dunlap, noted and carried out. Dr Dunlap notified about admission, V/S , lab results contain WBC 16.6 HB 9.2 PLT 133 K 6.9 CREA 6 TROPONIN 0.743, gigoxin 3.3, all orders noted and carried out. HD nurse Jack is aware about HD today and she stated Oozy will do in the afternoon. All needs attended, bed is locked and is in the lowest position, call light within easy reach. will continue to monitor. Addendum: 03/24/20 at 1133 by Aly Mart RN ERRO WRONG PT.
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
[2020-03-24 12:00] VITALS: BP 140/74
--- NOTE | 2020-03-24 13:22 | NUR ---
INSURANCE CLINCALS/REVIEW FAXED TO (03/21-03/24) [facility] T: [phone] F: [phone]
--- NOTE | 2020-03-24 13:30 | NUR ---
NURSE NOTES: HD started by nurse Almas, pt is stable now. will continue to close monitoring.
--- NOTE | 2020-03-24 13:57 | NUR ---
NURSE NOTES:WOUND CARE FOLLOW-UP NOTES:Pt presented on admission with Tracheostomy, GT with Peristomal dermatitis, Full Thickness Sacral Pressure Injury. No evidence of Skin breakdown noted under tracheal collar. Peristomal GT grossly erythematous with large amt formula oozing from insertion site.drsg noted to be saturated. Full thickness Sacral Pressure Injury (L)8.5cm x (W)12cm x (D)1.5cm, undermining clockwise 12-3 by 3cm @2o'clock. Base of wound is 75% noni with scattered slough,25% necrotic. Bone is palpable at base of wound. Wound is less malodorous,mild odor noted. Non-Blanchable erythema periwound along borders of wound. No elevation in skin temp noted. MASD perineum,Perianal, and medial/posterior aspects of both upper thighs. Affected areas are erythematous and macerated. Dry necrotic lesion noted to medial upper R thigh. Edges adherent to base of wound. No erythema,induration,or fluctuance periwound L Heel is boggy with non-blanchable erythema. R Heel is boggy but easily blanchable. Tx.Plan:Wash GT site daily with soap and water. Pat dry. Apply Zinc Oxide Paste to peristomal Gt. Cover with Maxsorb Extra drsg. Cover with Optifoam drsg Daily and prn. Cleanse Sacral Wound with Dakin's o.25% Tawanna. Loosely pack with Dakin's moistened Kerlix. Apply Moisture Barrier Paste periwound. Cover with Optifoam drsg Daily and prn. Apply Moisture Barrier Paste to Perineum. Buttocks and medial/posterior aspects of both upper thighs with each incontinence care. Apply Cavilon Skin Barrier to both heels. Cover each heel with Optifoam drsg. Change every 7 days and prn. Reposition at least every 2hours or as tolerated. Off-load heels with pillow. APM/JENNIFER Mattress overlay.
--- NOTE | 2020-03-24 14:04 | NUR ---
NURSE NOTES: blood received from blood bank and double checked with HD RN Oozy, and HD RN is starting blood transfusion now. will continue to close monitoring.
[2020-03-24 16:00] VITALS: BP 133/64
--- NOTE | 2020-03-24 16:43 | NUR ---
NURSE NOTES: HD finished with 2lit out put, pt is stable, V/S stable, blood bag sent to lab. will continue close monitoring.
[2020-03-24] MEDS: Zinc Oxide Oint 2oz TOPIC SCH (18:20)
--- NOTE | 2020-03-24 19:00 | NUR ---
NURSE NOTES: Received report from ERASMO Lu. pt is in semi- crisostomo's position, alert oriented x 1 by name, non verbal. Pt on trach to vent with settings as ordered. Fio2- 40% o2 sat- 100%. Pt is sleeping comfortably in bed. No pain noted. Not in respiratory distress. With LFA g22 intact and patent. Pt has gtube with no residual, intact and patent. pt has minimal discharge around the gtube site brown in color, with dressing as ordered.S/p PRBC by AM shift. Dialysis done in the AM shift 2L out. No hypotensive episodes noted. SR in environmental monitoring technician. Bed in lowest position, call light within reach. Continue to plan of care.
--- NOTE | 2020-03-24 19:52 | NUR ---
NURSE HAND-OFF REPORT: Important Events on Shift:HD DONE WITH 2LIT OUT PUT. 1 bag PRBC given to pt. Patient Status: Diet: Pending Orders: Pending Results/Labs: Pending MD notification: Latest Vital Signs: Temperature 96.8 , Pulse 66 , B/P 133 /64 , Respiratory Rate 15 , O2 SAT 99 , Mechanical Ventilator, O2 Flow Rate . Vital Sign Comment: EKG Rhythm: Sinus Rhythm Rhythm change?: N MD Notified?: N -Dr Екатерина HATFIELD Response: No New Orders Received Latest Chavarria Fall Score: 60 Fall Risk: High Risk Safety Measures: Call light Within Reach, Bed Alarm Zone 2, Side Rails Side Rails x3, Bed position Low and Locked. Fall Precautions: Yellow Socks Report given to . Pt is awake and stable, no stress noted. endorsed plan of care, endorsed to F/U g tube dressing.
[2020-03-24 20:00] VITALS: BP 148/70
[2020-03-24] MEDS: Dyna-Hex 2% Top Sol 2oz TOPIC SCH (20:06)
--- NOTE | 2020-03-24 20:22 | General Progress Note ---
Subjective Constitutional: Reports: no symptoms HEENT: Reports: no symptoms Cardiovascular: Reports: no symptoms Respiratory: Reports: no symptoms Gastrointestinal/Abdominal: Reports: no symptoms Genitourinary: Reports: no symptoms Neurologic/Psychiatric: Reports: no symptoms Endocrine: Reports: no symptoms Hematologic/Lymphatic: Reports: no symptoms Allergies: Coded Allergies: No Known Allergies (Unverified , 10/10/17) Objective Last 24 Hour Vital Signs Date Time Temp Pulse Resp B/P (MAP) Pulse Ox O2 Delivery O2 Flow Rate FiO2 03/24/20 19:05 66 15 40 03/24/20 16:00 Mechanical Ventilator 03/24/20 16:00 40 03/24/20 16:00 96.8 61 14 133/64 (87) 99 03/24/20 15:56 63 19 40 03/24/20 15:49 68 03/24/20 14:00 69 145/70 03/24/20 12:32 67 03/24/20 12:00 40 03/24/20 12:00 Mechanical Ventilator 03/24/20 12:00 96.4 67 21 140/74 (96) 96 03/24/20 11:16 72 22 40 03/24/20 08:00 Mechanical Ventilator 03/24/20 08:00 40 03/24/20 08:00 59 03/24/20 08:00 96.6 60 21 124/61 (82) 98 03/24/20 06:45 58 14 40 03/24/20 06:02 88 139/73 03/24/20 04:00 99.5 88 21 139/73 (95) 98 03/24/20 04:00 Mechanical Ventilator 03/24/20 04:00 40 03/24/20 03:55 58 14 40 03/24/20 03:17 58 03/24/20 00:00 Mechanical Ventilator 03/24/20 00:00 40 03/24/20 00:00 97.5 63 17 139/67 (91) 97 03/23/20 23:55 60 20 40 03/23/20 23:15 59 03/23/20 22:41 97.5 03/23/20 21:48 80 145/65 Intake and Output 03/23/20 03/24/20 19:00 07:00 Intake Total 630.556 ml 520 ml Balance 630.556 ml 520 ml Intake Free Water 90 ml 100 ml IV Total 185.556 ml Tube Feeding 355 ml 420 ml # Voids 1 # Bowel Movements 3 2 Laboratory Tests 03/23/20 20:48: POC Whole Blood Glucose 80 03/24/20 03:45: White Blood Count 5.0, Red Blood Count 2.32L, Hemoglobin 7.1L, Hematocrit 20.4L, Mean Corpuscular Volume 88, Mean Corpuscular Hemoglobin 30.7, Mean Corpuscular Hemoglobin Concent 35.0, Red Cell Distribution Width 15.6H, Platelet Count 90L, Mean Platelet Volume 8.2, Neutrophils (%) (Auto) , Lymphocytes (%) (Auto) , Monocytes (%) (Auto) , Eosinophils (%) (Auto) , Basophils (%) (Auto) , Prothrombin Time 14.1H, Prothromb Time International Ratio 1.3H, Activated Partial Thromboplast Time 30, Sodium Level 132L, Potassium Level 3.9, Chloride Level 96L, Carbon Dioxide Level 27, Anion Gap 9, Blood Urea Nitrogen 78H, Creatinine 2.3H, Estimat Glomerular Filtration Rate 22.7, Glucose Level 86, Calcium Level 6.9L, Phosphorus Level 2.3L, Magnesium Level 2.0, Total Bilirubin 0.4, Direct Bilirubin 0.2, Aspartate Amino Transf (AST/SGOT) 41H, Alanine Aminotransferase (ALT/SGPT) 21, Alkaline Phosphatase 131H, C-Reactive Protein, Quantitative 18.1H, Pro-B-Type Natriuretic Peptide > 49381A, Total Protein 4.6L, Albumin 1.1L Height (Feet): 5 Height (Inches): 3.00 Weight (Pounds): 128 General Appearance: no apparent distress, lethargic EENT: normal ENT inspection Neck: supple Cardiovascular: normal rate, regular rhythm, no gallop/murmur, no JVD Respiratory/Chest: lungs clear, no respiratory distress, no accessory muscle use, decreased breath sounds Abdomen: normal bowel sounds, non tender, soft, no organomegaly, no mass Extremities: non-tender Neurologic: alert Skin: warm/dry Assessment/Plan Status Narrative Patient is awake alert afebrile hemodynamically stable no fever and leukocytosis from previous day completely resolved patient on look and does not engage in any verbal response she is now off daptomycin Avycaze present time low solution was found and willing to accept this lady will dissecting aortic aneurysm if no such residual will be found sooner with discharge the patient back to the extended care facility the patient is undergoing no distress while she is here repeat lab oratory tests will be done in Lucas Vera MD, MD Mar 24, 2020 20:22
[2020-03-25] VITALS: BP 152/78
--- NOTE | 2020-03-25 | NUR ---
NURSE NOTES: Pt is lying comfortably in bed with no distress, oral secretions suctioned. No pain noted. o2 sat- 100%. NSR in the monitor.
--- NOTE | 2020-03-25 01:46 | Cardiology Progress Note ---
Subjective DATE OF SERVICE: Mar 22, 2020 (late entry) Heart rates remain in stable range; carvedilol dose advanced and tolerated, in setting of aortic dissection. BP parameters stable. CT scan now reveals extensive thoracoabd aortic dissection. Dialysis per renal; last session was today Pt is s/p paracentesis (50cc) Objective Last 24 Hour Vital Signs Date Time Temp Pulse Resp B/P (MAP) Pulse Ox O2 Delivery O2 Flow Rate FiO2 03/25/20 00:00 Mechanical Ventilator 03/25/20 00:00 77 03/25/20 00:00 98.1 75 15 152/78 (102) 100 03/24/20 23:27 74 14 40 03/24/20 22:44 72 150/78 03/24/20 20:00 Mechanical Ventilator 03/24/20 20:00 97.5 64 15 148/70 (96) 97 03/24/20 20:00 40 03/24/20 20:00 66 03/24/20 19:05 66 15 40 03/24/20 16:00 Mechanical Ventilator 03/24/20 16:00 40 03/24/20 16:00 96.8 61 14 133/64 (87) 99 03/24/20 15:56 63 19 40 03/24/20 15:49 68 03/24/20 14:00 69 145/70 03/24/20 12:32 67 03/24/20 12:00 40 03/24/20 12:00 Mechanical Ventilator 03/24/20 12:00 96.4 67 21 140/74 (96) 96 03/24/20 11:16 72 22 40 03/24/20 08:00 Mechanical Ventilator 03/24/20 08:00 40 03/24/20 08:00 59 03/24/20 08:00 96.6 60 21 124/61 (82) 98 03/24/20 06:45 58 14 40 03/24/20 06:02 88 139/73 03/24/20 04:00 99.5 88 21 139/73 (95) 98 03/24/20 04:00 Mechanical Ventilator 03/24/20 04:00 40 03/24/20 03:55 58 14 40 03/24/20 03:17 58 HEENT: Thin Trach secretions RHYTHM: NSR, SB LUNGS: bilateral rhonchi - few, trach site clean CARDIAC: normal rate, regular rhythm, normal S1 and S2 ABDOMEN: normal bowel sounds, non tender, soft, G-Tube intact EXTREMITIES: normal range of motion, non-tender, normal inspection Laboratory Tests Test 03/24/20 03:45 White Blood Count 5.0 K/UL (4.8-10.8) Red Blood Count 2.32 M/UL (4.20-5.40) L Hemoglobin 7.1 G/DL (12.0-16.0) L Hematocrit 20.4 % (37.0-47.0) L Mean Corpuscular Volume 88 FL (80-99) Mean Corpuscular Hemoglobin 30.7 PG (27.0-31.0) Mean Corpuscular Hemoglobin Concent 35.0 G/DL (32.0-36.0) Red Cell Distribution Width 15.6 % (11.6-14.8) H Platelet Count 90 K/UL (150-450) L Mean Platelet Volume 8.2 FL (6.5-10.1) Neutrophils (%) (Auto) % (45.0-75.0) Lymphocytes (%) (Auto) % (20.0-45.0) Monocytes (%) (Auto) % (1.0-10.0) Eosinophils (%) (Auto) % (0.0-3.0) Basophils (%) (Auto) % (0.0-2.0) Prothrombin Time 14.1 SEC (9.30-11.50) H Prothromb Time International Ratio 1.3 (0.9-1.1) H Activated Partial Thromboplast Time 30 SEC (23-33) Sodium Level 132 MMOL/L (136-145) L Potassium Level 3.9 MMOL/L (3.5-5.1) Chloride Level 96 MMOL/L (98-107) L Carbon Dioxide Level 27 MMOL/L (21-32) Anion Gap 9 mmol/L (5-15) Blood Urea Nitrogen 78 mg/dL (7-18) H Creatinine 2.3 MG/DL (0.55-1.30) H Estimat Glomerular Filtration Rate 22.7 mL/min (>60) Glucose Level 86 MG/DL (74-106) Calcium Level 6.9 MG/DL (8.5-10.1) L Phosphorus Level 2.3 MG/DL (2.5-4.9) L Magnesium Level 2.0 MG/DL (1.8-2.4) Total Bilirubin 0.4 MG/DL (0.2-1.0) Direct Bilirubin 0.2 MG/DL (0.0-0.3) Aspartate Amino Transf (AST/SGOT) 41 U/L (15-37) H Alanine Aminotransferase (ALT/SGPT) 21 U/L (12-78) Alkaline Phosphatase 131 U/L (46-116) H C-Reactive Protein, Quantitative 18.1 mg/dL (0.00-0.90) H Pro-B-Type Natriuretic Peptide > 15057 pg/mL (0-125) H Total Protein 4.6 G/DL (6.4-8.2) L Albumin 1.1 G/DL (3.4-5.0) L Assessment/Plan Assessment/Plan Aortic dissections Sepsis with recovered shock Sinus node disease with bradycardia Hx pacemaker explant Ischemic cardiomyopathy - hx CABG? Paroxysmal Atrial Fib Respiratory failure with trach Hx thoracic aortic aneurysm repair ESRD Anemia HypoPO4 Will maintain current dose of beta flori (with hold parameter). athletic monitor Vent support Off phosphorus binder Antimicrobials DVT prophyl No urgent indication for pacemaker at present. HD/UF per renal Needs higher level of care ultimately for repair of aortic dissection, although may not be a surgical candidate Deni Willams MD Mar 25, 2020 01:46
--- NOTE | 2020-03-25 01:47 | Cardiology Progress Note ---
Subjective DATE OF SERVICE: Mar 23, 2020 (late entry) Heart rates remain in stable range; carvedilol dose advanced and tolerated, in setting of aortic dissection. BP parameters stable. CT scan now reveals extensive thoracoabd aortic dissection. Dialysis per renal; last session was today Pt is s/p paracentesis (50cc) Objective Last 24 Hour Vital Signs reviewed HEENT: Thin Trach secretions RHYTHM: NSR, SB LUNGS: bilateral rhonchi - few, trach site clean CARDIAC: normal rate, regular rhythm, normal S1 and S2 ABDOMEN: normal bowel sounds, non tender, soft, G-Tube intact EXTREMITIES: normal range of motion, non-tender, normal inspection Laboratory Tests Test 03/24/20 03:45 White Blood Count 5.0 K/UL (4.8-10.8) Red Blood Count 2.32 M/UL (4.20-5.40) L Hemoglobin 7.1 G/DL (12.0-16.0) L Hematocrit 20.4 % (37.0-47.0) L Mean Corpuscular Volume 88 FL (80-99) Mean Corpuscular Hemoglobin 30.7 PG (27.0-31.0) Mean Corpuscular Hemoglobin Concent 35.0 G/DL (32.0-36.0) Red Cell Distribution Width 15.6 % (11.6-14.8) H Platelet Count 90 K/UL (150-450) L Mean Platelet Volume 8.2 FL (6.5-10.1) Neutrophils (%) (Auto) % (45.0-75.0) Lymphocytes (%) (Auto) % (20.0-45.0) Monocytes (%) (Auto) % (1.0-10.0) Eosinophils (%) (Auto) % (0.0-3.0) Basophils (%) (Auto) % (0.0-2.0) Prothrombin Time 14.1 SEC (9.30-11.50) H Prothromb Time International Ratio 1.3 (0.9-1.1) H Activated Partial Thromboplast Time 30 SEC (23-33) Sodium Level 132 MMOL/L (136-145) L Potassium Level 3.9 MMOL/L (3.5-5.1) Chloride Level 96 MMOL/L (98-107) L Carbon Dioxide Level 27 MMOL/L (21-32) Anion Gap 9 mmol/L (5-15) Blood Urea Nitrogen 78 mg/dL (7-18) H Creatinine 2.3 MG/DL (0.55-1.30) H Estimat Glomerular Filtration Rate 22.7 mL/min (>60) Glucose Level 86 MG/DL (74-106) Calcium Level 6.9 MG/DL (8.5-10.1) L Phosphorus Level 2.3 MG/DL (2.5-4.9) L Magnesium Level 2.0 MG/DL (1.8-2.4) Total Bilirubin 0.4 MG/DL (0.2-1.0) Direct Bilirubin 0.2 MG/DL (0.0-0.3) Aspartate Amino Transf (AST/SGOT) 41 U/L (15-37) H Alanine Aminotransferase (ALT/SGPT) 21 U/L (12-78) Alkaline Phosphatase 131 U/L (46-116) H C-Reactive Protein, Quantitative 18.1 mg/dL (0.00-0.90) H Pro-B-Type Natriuretic Peptide > 54045 pg/mL (0-125) H Total Protein 4.6 G/DL (6.4-8.2) L Albumin 1.1 G/DL (3.4-5.0) L Assessment/Plan Assessment/Plan Aortic dissections Sepsis with recovered shock Sinus node disease with bradycardia Hx pacemaker explant Ischemic cardiomyopathy - hx CABG? Paroxysmal Atrial Fib Respiratory failure with trach Hx thoracic aortic aneurysm repair ESRD Anemia HypoPO4 Will maintain current dose of beta flori (with hold parameter). color television console monitor Vent support Off phosphorus binder Antimicrobials DVT prophyl No urgent indication for pacemaker at present. HD/UF per renal Needs higher level of care ultimately for repair of aortic dissection, although may not be a surgical candidate Deni Willams MD Mar 25, 2020 01:47
--- NOTE | 2020-03-25 01:49 | Cardiology Progress Note ---
Subjective DATE OF SERVICE: Mar 24, 2020 Heart rates remain in stable range; carvedilol therapy tolerated without significant bradycardia, in setting of aortic dissection. BP parameters stable. CT scan now reveals extensive thoracoabd aortic dissection. Dialysis per renal; last session was today Pt is s/p paracentesis (50cc) Objective Last 24 Hour Vital Signs Date Time Temp Pulse Resp B/P (MAP) Pulse Ox O2 Delivery O2 Flow Rate FiO2 03/25/20 00:00 Mechanical Ventilator 03/25/20 00:00 77 03/25/20 00:00 98.1 75 15 152/78 (102) 100 03/24/20 23:27 74 14 40 03/24/20 22:44 72 150/78 03/24/20 20:00 Mechanical Ventilator 03/24/20 20:00 97.5 64 15 148/70 (96) 97 03/24/20 20:00 40 03/24/20 20:00 66 03/24/20 19:05 66 15 40 03/24/20 16:00 Mechanical Ventilator 03/24/20 16:00 40 03/24/20 16:00 96.8 61 14 133/64 (87) 99 03/24/20 15:56 63 19 40 03/24/20 15:49 68 03/24/20 14:00 69 145/70 03/24/20 12:32 67 03/24/20 12:00 40 03/24/20 12:00 Mechanical Ventilator 03/24/20 12:00 96.4 67 21 140/74 (96) 96 03/24/20 11:16 72 22 40 03/24/20 08:00 Mechanical Ventilator 03/24/20 08:00 40 03/24/20 08:00 59 03/24/20 08:00 96.6 60 21 124/61 (82) 98 03/24/20 06:45 58 14 40 03/24/20 06:02 88 139/73 03/24/20 04:00 99.5 88 21 139/73 (95) 98 03/24/20 04:00 Mechanical Ventilator 03/24/20 04:00 40 03/24/20 03:55 58 14 40 03/24/20 03:17 58 HEENT: Thin Trach secretions RHYTHM: NSR, SB LUNGS: bilateral rhonchi - few, trach site clean CARDIAC: normal rate, regular rhythm, normal S1 and S2 ABDOMEN: normal bowel sounds, non tender, soft, G-Tube intact EXTREMITIES: normal range of motion, non-tender, normal inspection Laboratory Tests Test 03/24/20 03:45 White Blood Count 5.0 K/UL (4.8-10.8) Red Blood Count 2.32 M/UL (4.20-5.40) L Hemoglobin 7.1 G/DL (12.0-16.0) L Hematocrit 20.4 % (37.0-47.0) L Mean Corpuscular Volume 88 FL (80-99) Mean Corpuscular Hemoglobin 30.7 PG (27.0-31.0) Mean Corpuscular Hemoglobin Concent 35.0 G/DL (32.0-36.0) Red Cell Distribution Width 15.6 % (11.6-14.8) H Platelet Count 90 K/UL (150-450) L Mean Platelet Volume 8.2 FL (6.5-10.1) Neutrophils (%) (Auto) % (45.0-75.0) Lymphocytes (%) (Auto) % (20.0-45.0) Monocytes (%) (Auto) % (1.0-10.0) Eosinophils (%) (Auto) % (0.0-3.0) Basophils (%) (Auto) % (0.0-2.0) Prothrombin Time 14.1 SEC (9.30-11.50) H Prothromb Time International Ratio 1.3 (0.9-1.1) H Activated Partial Thromboplast Time 30 SEC (23-33) Sodium Level 132 MMOL/L (136-145) L Potassium Level 3.9 MMOL/L (3.5-5.1) Chloride Level 96 MMOL/L (98-107) L Carbon Dioxide Level 27 MMOL/L (21-32) Anion Gap 9 mmol/L (5-15) Blood Urea Nitrogen 78 mg/dL (7-18) H Creatinine 2.3 MG/DL (0.55-1.30) H Estimat Glomerular Filtration Rate 22.7 mL/min (>60) Glucose Level 86 MG/DL (74-106) Calcium Level 6.9 MG/DL (8.5-10.1) L Phosphorus Level 2.3 MG/DL (2.5-4.9) L Magnesium Level 2.0 MG/DL (1.8-2.4) Total Bilirubin 0.4 MG/DL (0.2-1.0) Direct Bilirubin 0.2 MG/DL (0.0-0.3) Aspartate Amino Transf (AST/SGOT) 41 U/L (15-37) H Alanine Aminotransferase (ALT/SGPT) 21 U/L (12-78) Alkaline Phosphatase 131 U/L (46-116) H C-Reactive Protein, Quantitative 18.1 mg/dL (0.00-0.90) H Pro-B-Type Natriuretic Peptide > 47585 pg/mL (0-125) H Total Protein 4.6 G/DL (6.4-8.2) L Albumin 1.1 G/DL (3.4-5.0) L Assessment/Plan Assessment/Plan Aortic dissections Sepsis with recovered shock Sinus node disease with bradycardia Hx pacemaker explant Ischemic cardiomyopathy - hx CABG? Paroxysmal Atrial Fib Respiratory failure with trach Hx thoracic aortic aneurysm repair ESRD Anemia HypoPO4 Will maintain maximize dose of beta flori (with hold parameter). shelter monitor Vent support Antimicrobials DVT prophyl No urgent indication for pacemaker at present. HD/UF per renal Needs higher level of care ultimately for repair of aortic dissection, although may not be a surgical candidate Deni Willams MD Mar 25, 2020 01:49
[2020-03-25 04:00] VITALS: BP 140/72
--- NOTE | 2020-03-25 04:00 | NUR ---
NURSE NOTES: Sponge bath given, dressing change around gtube site minimal leaking noted in gtube site velasco color discharged, MD aware. Noted 1x BM in soft yellow in color,. No active bleeding noted. Noted swelling on both groin area, will inform and refer to MD in am and nurse in next shift.
[2020-03-25] MEDS: Metoclopramide 10mg/2ml Inj IVP SCH ×3 (05:15→21:25)
[2020-03-25] MEDS: Carvedilol 6.25mg Tab GT SCH ×3 (05:15→21:23)
[2020-03-25] MEDS: Sucralfate 1gm tab GT SCH ×5 (05:15→23:49)
[2020-03-25] MEDS: traMADol 50mg tab GT SCH ×3 (05:15→21:24)
[2020-03-25] MEDS: Midodrine 10mg tab GT SCH ×3 (05:16→21:23)
--- NOTE | 2020-03-25 06:00 | NUR ---
NURSE NOTES: Seen pt sleeping comfortably in bed. O2 sat- 100%. No signs of bradycardia. NSR in cardiac catheterization technician. Will continue to currrent management.
--- NOTE | 2020-03-25 06:30 | Hematology/Onc Progress Note ---
Assessment/Plan Assessment/Plan # Leukocytosis, now with likely bacteremia, as per ID care --> Cxr: : Large left abiola consolidation/effusion --> wbc 30-->40-->27->30->29-->35->32-->28-->21->10.2-->6.6 --> ABX angelo/vanc-->tobra/edson/vanc-->dapto/ceftazadine --> smear reviewed --> ID recs are noted # Anemia of chronic disease due to underlying chronic medical issues, multifactorial --> Anemia workup has been reviewed, cw acd --> No evidence of hemolysis is noted, peripheral smear has been reviewed. --> Hgb goal >7. Transfuse prn. --> Epogen required in prior --> Medications have been reviewed --> low threshold for gi evaluation in case has occult + --> hgb 1.9-->5-->7.1-->8.8-->8.1->7.5-> 8.2-->6.8-->9.2-->8.4->7.7-->7.1 --> 1 unit prbc10/17, 2 units 01/15, 03/02, 2/, 03/24 --> gi eval as needed # Elevated tumor markers, cea and ca 19.9 --> reviewed prior 01/27/20 cat scan a/p --> no masses noted, hold off further extensive w/u # Thrombocytopenia likely reactive v medication induced --> plt 200-->129->91-->86->100->78-->86-->87 --> transfuse as needed --> r/o dic, has been ruled out --> anticoag as needed # Coagulopathy with inr 1.5 --> consider vit k/ffp as needed preprocedure --> labs noted # Aortic dissection as seen on Ct ==> when stable, consider transfer hloc # JAVIER initially >2 --> on ivfs --> per renal # Elevated d-dimer, likely infection related --> venous duplex prior neg --> in prior neg # Dysphagia s/p peg --> as per gi # Thoracic aortic dissection --> s/p repair early 2017 # Chronic Resp failure -> s/p trach/vent # Psychiatric history on ativan/haldol # [place] resident # Dvt ppx --> scds The timing of this note does not necessarily reflect the time of the patient was seen. Greatly appreciate consultation. Subjective Cardiovascular: Denies: no symptoms, chest pain, edema, irregular heart rate, lightheadedness, palpitations, syncope, other Gastrointestinal/Abdominal: Denies: no symptoms, abdomen distended, abdominal pain, black stools, tarry stools, blood in stool, constipated, diarrhea, difficulty swallowing, nausea, poor appetite, poor fluid intake, rectal bleeding, vomiting, other Genitourinary: Denies: no symptoms, burning, discharge, frequency, flank pain, hematuria, incontinence, pain, urgency, other Neurologic/Psychiatric: Denies: no symptoms, anxiety, depressed, emotional problems, headache, numbness, paresthesia, pre-existing deficit, seizure, ting ling, tremors, weakness, other Endocrine: Denies: no symptoms, excessive sweating, flushing, intolerance to cold, intolerance to heat, increased hunger, increased thirst, increased urine, unexplained weight gain, unexplained weight loss, other Allergies: Coded Allergies: No Known Allergies (Unverified , 10/10/17) Subjective 03/04 for 1 unit transfusion this am as hgb remains low, wbc better 03/05 egd was done did show large nonbleeding gastric ulcer, high tumor markers 03/06 nv, with davis overnight, bp remains stable, with occult + stool, dw Rn 03/09 nv, remains stable, on vanc/tobra/edson, meds reviewed, no bleeding 03/10 nv, on vent, no bleeding, receiving abx, no night sweats 03/11 nv, dw surgeon and pcp, with [facility] 03/12 nv, labs reviewed, wbc 21, hgb 7.5, otherwise is comfortable 03/13 nv, labs noted, no bleeding, wbc 13, hgb improved, meds reviewed 03/15 nv, meds reviewed, labs noted, no bleeding, on vent 03/16 nv/tv, peg, meds noted, hgb remains stable, improved to 10 2/ s/p egd, with gastric ulceration noted, hgb stable 2/3 labs noted, hgb 6.8, to get 1 unit prbc, meds reviewed 03/19 hgb 9.2, plt 78, no hemoptysis, is comfortable 03/20 labs reviewed, meds noted, no bleeding, roman rn 03/22 wound treatment, vent, with gtube, labs reviewed, roman rn 03/23 labs reviewed, meds noted, no bleeding, with gt 03/24 large bm overnight that was bloody, hgb 7.1, roman rn 03/25 labs pending this am, comfortable, nsr, meds noted Objective Objective Current Medications Medications (Trade) Dose Ordered Sig/Penny Route PRN Reason Start Time Stop Time Status Last Admin Dose Admin Acetaminophen (Tylenol) 650 mg Q6H PRN GT Mild Pain (Pain Scale 1-3) 03/02/20 22:30 04/01/20 22:29 03/18/20 11:14 Acetaminophen (Tylenol) 650 mg Q6H PRN GT Temp >100.5 03/03/20 03:00 04/01/20 22:29 03/23/20 21:49 Aspirin (ASA) 81 mg DAILY GT 03/07/20 09:00 04/21/20 08:59 03/24/20 08:24 Carvedilol (Coreg) 6.25 mg EVERY 8 HOURS GT 03/20/20 22:00 04/13/20 20:59 03/25/20 05:15 Chlorhexidine Gluconate (Ling-Hex 2%) 1 applic DAILY@2000 TOPIC 03/03/20 20:00 06/01/20 19:59 03/24/20 20:06 Dextrose (Dextrose 50%) 25 ml Q30M PRN IV Hypoglycemia 03/15/20 07:30 06/13/20 07:29 Dextrose (Dextrose 50%) 50 ml Q30M PRN IV Hypoglycemia 03/15/20 07:30 06/13/20 07:29 Hydralazine HCl (Apresoline) 25 mg Q6H PRN GT For High Blood Pressure 03/02/20 22:00 05/31/20 21:59 Hydrocortisone (Anusol HC) 25 mg Q12HR RECTAL 03/23/20 21:00 06/21/20 08:59 03/24/20 20:06 Hydromorphone HCl (Dilaudid) 0.5 mg Q4H PRN IVP For Pain 03/18/20 18:30 03/25/20 18:29 03/24/20 06:03 Loperamide HCl (Imodium) 2 mg Q6H PRN GT Diarrhea 03/06/20 12:45 04/05/20 12:44 03/06/20 13:01 Metoclopramide HCl (Reglan) 5 mg Q8HR IVP 03/04/20 11:45 04/03/20 11:44 03/25/20 05:15 Midodrine (Pro-Amatine) 10 mg EVERY 8 HOURS GT 03/17/20 22:00 06/01/20 12:59 03/24/20 13:02 Pantoprazole (Protonix) 40 mg EVERY 12 HOURS IVP 03/04/20 21:00 04/02/20 20:59 03/24/20 20:06 Polyethylene Glycol (Miralax) 17 gm BEDTIME PRN GT Constipation 03/02/20 22:00 04/01/20 21:59 Sodium Hypochlorite (Dakin's Quarter Strength) 1 applic DAILY TOPIC 03/04/20 09:00 04/03/20 08:59 03/24/20 08:25 Sucralfate (Carafate) 1 gm EVERY 6 HOURS GT 03/17/20 18:00 06/09/20 08:59 03/25/20 05:15 Tramadol HCl (Ultram) 50 mg EVERY 8 HOURS GT 03/19/20 14:00 03/26/20 13:59 03/25/20 05:15 Zinc Oxide (Zinc Oxide) 1 applic BID TOPIC 03/24/20 18:00 06/22/20 17:59 03/24/20 18:20 Last 24 Hour Vital Signs Date Time Temp Pulse Resp B/P (MAP) Pulse Ox O2 Delivery O2 Flow Rate FiO2 03/25/20 05:15 81 136/81 03/25/20 04:00 Mechanical Ventilator 03/25/20 04:00 97.7 72 16 140/72 (94) 100 03/25/20 04:00 74 03/25/20 04:00 40 03/25/20 03:18 74 17 40 03/25/20 00:00 Mechanical Ventilator 03/25/20 00:00 77 03/25/20 00:00 98.1 75 15 152/78 (102) 100 03/24/20 23:27 74 14 40 03/24/20 22:44 72 150/78 03/24/20 20:00 Mechanical Ventilator 03/24/20 20:00 97.5 64 15 148/70 (96) 97 03/24/20 20:00 40 03/24/20 20:00 66 03/24/20 19:05 66 15 40 03/24/20 16:00 Mechanical Ventilator 03/24/20 16:00 40 03/24/20 16:00 96.8 61 14 133/64 (87) 99 03/24/20 15:56 63 19 40 03/24/20 15:49 68 03/24/20 14:00 69 145/70 03/24/20 12:32 67 03/24/20 12:00 40 03/24/20 12:00 Mechanical Ventilator 03/24/20 12:00 96.4 67 21 140/74 (96) 96 03/24/20 11:16 72 22 40 03/24/20 08:00 Mechanical Ventilator 03/24/20 08:00 40 03/24/20 08:00 59 03/24/20 08:00 96.6 60 21 124/61 (82) 98 03/24/20 06:45 58 14 40 03/24/20 06:02 88 139/73 03/24/20 04:00 99.5 88 21 139/73 (95) 98 03/24/20 04:00 Mechanical Ventilator 03/24/20 04:00 40 03/24/20 03:55 58 14 40 03/24/20 03:17 58 03/24/20 00:00 Mechanical Ventilator 03/24/20 00:00 40 03/24/20 00:00 97.5 63 17 139/67 (91) 97 03/23/20 23:55 60 20 40 03/23/20 23:15 59 03/23/20 22:41 97.5 03/23/20 21:48 80 145/65 03/23/20 20:00 101.5 76 18 143/69 (93) 100 03/23/20 20:00 40 03/23/20 20:00 Mechanical Ventilator 03/23/20 19:39 70 21 40 03/23/20 19:06 61 03/23/20 16:00 97.4 62 18 124/57 (79) 100 03/23/20 16:00 71 03/23/20 16:00 Mechanical Ventilator 03/23/20 16:00 40 03/23/20 15:08 66 14 40 03/23/20 14:00 56 111/60 03/23/20 12:00 56 03/23/20 12:00 97.2 58 18 111/60 (77) 98 03/23/20 12:00 Mechanical Ventilator 03/23/20 12:00 40 03/23/20 11:17 82 22 98 03/23/20 11:16 68 20 98 03/23/20 11:03 57 15 40 03/23/20 08:00 57 03/23/20 08:00 Mechanical Ventilator 03/23/20 08:00 40 03/23/20 08:00 Mechanical Ventilator 03/23/20 08:00 97.4 61 18 119/49 (72) 100 03/23/20 07:14 53 14 40 Intake and Output 03/24/20 03/25/20 19:00 07:00 Intake Total 520 ml 485 ml Balance 520 ml 485 ml Intake Free Water 100 ml 100 ml Tube Feeding 420 ml 385 ml # Voids 1 1 # Bowel Movements 1 2 Labs Test 03/22/20 11:21 03/23/20 01:13 03/23/20 03:50 03/23/20 11:36 POC Whole Blood Glucose 98 MG/DL (74-106) 65 MG/DL (74-106) 86 MG/DL (74-106) White Blood Count 4.9 K/UL (4.8-10.8) Red Blood Count 2.59 M/UL (4.20-5.40) Hemoglobin 7.6 G/DL (12.0-16.0) Hematocrit 22.9 % (37.0-47.0) Mean Corpuscular Volume 88 FL (80-99) Mean Corpuscular Hemoglobin 29.3 PG (27.0-31.0) Mean Corpuscular Hemoglobin Concent 33.2 G/DL (32.0-36.0) Red Cell Distribution Width 14.0 % (11.6-14.8) Platelet Count 97 K/UL (150-450) Mean Platelet Volume 8.3 FL (6.5-10.1) Neutrophils (%) (Auto) % (45.0-75.0) Lymphocytes (%) (Auto) % (20.0-45.0) Monocytes (%) (Auto) % (1.0-10.0) Eosinophils (%) (Auto) % (0.0-3.0) Basophils (%) (Auto) % (0.0-2.0) Sodium Level 134 MMOL/L (136-145) Potassium Level 3.9 MMOL/L (3.5-5.1) Chloride Level 98 MMOL/L (98-107) Carbon Dioxide Level 28 MMOL/L (21-32) Anion Gap 8 mmol/L (5-15) Blood Urea Nitrogen 67 mg/dL (7-18) Creatinine 2.1 MG/DL (0.55-1.30) Estimat Glomerular Filtration Rate 25.2 mL/min (>60) Glucose Level 79 MG/DL (74-106) Calcium Level 7.4 MG/DL (8.5-10.1) Phosphorus Level 1.6 MG/DL (2.5-4.9) Magnesium Level 1.9 MG/DL (1.8-2.4) Total Bilirubin 0.5 MG/DL (0.2-1.0) Aspartate Amino Transf (AST/SGOT) 41 U/L (15-37) Alanine Aminotransferase (ALT/SGPT) 18 U/L (12-78) Alkaline Phosphatase 97 U/L (46-116) C-Reactive Protein, Quantitative 22.1 mg/dL (0.00-0.90) Pro-B-Type Natriuretic Peptide > 36124 pg/mL (0-125) Total Protein 5.0 G/DL (6.4-8.2) Albumin 1.1 G/DL (3.4-5.0) Globulin 3.9 g/dL Albumin/Globulin Ratio 0.3 (1.0-2.7) Test 03/23/20 17:19 03/23/20 20:48 03/24/20 03:45 POC Whole Blood Glucose 67 MG/DL (74-106) 80 MG/DL (74-106) White Blood Count 5.0 K/UL (4.8-10.8) Red Blood Count 2.32 M/UL (4.20-5.40) Hemoglobin 7.1 G/DL (12.0-16.0) Hematocrit 20.4 % (37.0-47.0) Mean Corpuscular Volume 88 FL (80-99) Mean Corpuscular Hemoglobin 30.7 PG (27.0-31.0) Mean Corpuscular Hemoglobin Concent 35.0 G/DL (32.0-36.0) Red Cell Distribution Width 15.6 % (11.6-14.8) Platelet Count 90 K/UL (150-450) Mean Platelet Volume 8.2 FL (6.5-10.1) Neutrophils (%) (Auto) % (45.0-75.0) Lymphocytes (%) (Auto) % (20.0-45.0) Monocytes (%) (Auto) % (1.0-10.0) Eosinophils (%) (Auto) % (0.0-3.0) Basophils (%) (Auto) % (0.0-2.0) Prothrombin Time 14.1 SEC (9.30-11.50) Prothromb Time International Ratio 1.3 (0.9-1.1) Activated Partial Thromboplast Time 30 SEC (23-33) Sodium Level 132 MMOL/L (136-145) Potassium Level 3.9 MMOL/L (3.5-5.1) Chloride Level 96 MMOL/L (98-107) Carbon Dioxide Level 27 MMOL/L (21-32) Anion Gap 9 mmol/L (5-15) Blood Urea Nitrogen 78 mg/dL (7-18) Creatinine 2.3 MG/DL (0.55-1.30) Estimat Glomerular Filtration Rate 22.7 mL/min (>60) Glucose Level 86 MG/DL (74-106) Calcium Level 6.9 MG/DL (8.5-10.1) Phosphorus Level 2.3 MG/DL (2.5-4.9) Magnesium Level 2.0 MG/DL (1.8-2.4) Total Bilirubin 0.4 MG/DL (0.2-1.0) Direct Bilirubin 0.2 MG/DL (0.0-0.3) Aspartate Amino Transf (AST/SGOT) 41 U/L (15-37) Alanine Aminotransferase (ALT/SGPT) 21 U/L (12-78) Alkaline Phosphatase 131 U/L (46-116) C-Reactive Protein, Quantitative 18.1 mg/dL (0.00-0.90) Pro-B-Type Natriuretic Peptide > 10685 pg/mL (0-125) Total Protein 4.6 G/DL (6.4-8.2) Albumin 1.1 G/DL (3.4-5.0) Height (Feet): 5 Height (Inches): 3.00 Weight (Pounds): 128 Objective Physical Exam: Vitals: reviewed General: NAD HEENT: nc, at Neck: supple ++trach/vent Chest: clear breath sounds bilaterally Cardiovascular: RRR, no s3, s4 Abdomen: soft, nontender, nd +gtube Extremities: no cce, normal range of motion Neuro: alert Evan Muhammad MD Mar 25, 2020 06:30
[2020-03-25 07:10] LABS: BASOPHILS % (AUTO) 0.3 % (0.0-2.0); HEMATOCRIT 27.5 % (37.0-47.0); HEMOGLOBIN 9.3 G/DL (12.0-16.0); LYMPHOCYTES % (AUTO) 17.8 % (20.0-45.0); MEAN CORPUSCULAR VOLUME 89 FL (80-99); MONOCYTES % (AUTO) 5.5 % (1.0-10.0); NEUTROPHILS % (AUTO) 76.3 % (45.0-75.0); PLATELET COUNT 129 K/UL (150-450); RED BLOOD COUNT 3.08 M/UL (4.20-5.40); RED CELL DISTRIBUTION WIDTH 14.4 % (11.6-14.8); WHITE BLOOD COUNT 5.8 K/UL (4.8-10.8)
--- NOTE | 2020-03-25 07:10 | NUR ---
NURSE NOTES: Seen by Dr. Muhammad informed about the swollen bilateral groin. ordered for venous duplex. carried out
--- NOTE | 2020-03-25 07:15 | NUR ---
NURSE HAND-OFF REPORT: Important Events on Shift: swollen bilateral legs, pt still guarded. still plan of care to transfer higher acuity hosp for thoracic aoarta dissection, but per MD notes she is not candidate. S/P prbc x 1 Patient Status: guarded Diet: GTF Pending Orders: none Pending Results/Labs:none Pending MD notification:none Latest Vital Signs: Temperature 97.7 , Pulse 81 , B/P 136 /81 , Respiratory Rate 16 , O2 SAT 100 , Mechanical Ventilator, O2 Flow Rate . Vital Sign Comment: WNL EKG Rhythm: Sinus Rhythm Rhythm change?: N MD Notified?: N -Dr Екатерина HATFIELD Response: No New Orders Received Latest [place] Fall Score: 60 Fall Risk: High Risk Safety Measures: Call light Within Reach, Bed Alarm Zone 2, Side Rails Side Rails x3, Bed position Low and Locked. Fall Precautions: Yellow Socks Report given to [mindy Myers RN].
--- NOTE | 2020-03-25 07:15 | NUR ---
NURSE NOTES: Received patient from [facility]. Patient is on bed, no signs of grimacing or distress noted. On T-V S7 with settings AC 14, TV 500, FiO2 40%, PEEP 5, tolerating well. Has a GT feeding patent, intact, running nepro at 35 cc/hr, patent, and intact. Patient has R U chest subclavian perma cath, patent and intact, and a L FA 22 g, patent, intact, saline locked. HOB elevated, bed on lowest position, side rails up, locked, call light within reach. Will continue to be monitored. Will continue plan of care.
[2020-03-25 07:45] LABS: ALBUMIN 1.2 G/DL (3.4-5.0); ALBUMIN/GLOBULIN RATIO 0.3 (1.0-2.7); BILIRUBIN,TOTAL 0.7 MG/DL (0.2-1.0); CALCIUM 7.2 MG/DL (8.5-10.1)
[2020-03-25 08:00] VITALS: BP 136/53
--- NOTE | 2020-03-25 08:47 | NUR ---
CASE MANAGEMENT:REVIEW 03/25/20 SI: SEPSIS. KPC BACTEREMIA. AORTIC DISSECTION ANEMIA...S/P 14 UNITS PRBC'S. TRACH/VENT/GTUBE. ESRD/HD 97.7 72 16 140/72 100% ON VENT SUPPORT W/40% FIO2 H/H-9.3/27.5 PLT-129 BUN+63 CR+2.0 IS: ANUSOL SD Q12 COREG GT Q8HRS ULTRAM GT Q8HRS MIDODRINE GT Q8HRS CARAFATE GT Q6HRS ASA GT QD IV PROTONIX Q12 IV REGLAN Q8HRS : STEP DOWN UNIT DCP: FROM [facility] PLAN: S/P EGD (+) LARGE GASTRIC ULCER NOT ACTIVELY BLEEDING
--- NOTE | 2020-03-25 09:12 | General Progress Note ---
Subjective ROS Limited/Unobtainable: No Allergies: Coded Allergies: No Known Allergies (Unverified , 10/10/17) Objective Last 24 Hour Vital Signs Date Time Temp Pulse Resp B/P (MAP) Pulse Ox O2 Delivery O2 Flow Rate FiO2 03/25/20 06:40 72 20 40 03/25/20 05:15 81 136/81 03/25/20 04:00 Mechanical Ventilator 03/25/20 04:00 97.7 72 16 140/72 (94) 100 03/25/20 04:00 74 03/25/20 04:00 40 03/25/20 03:18 74 17 40 03/25/20 00:00 Mechanical Ventilator 03/25/20 00:00 77 03/25/20 00:00 98.1 75 15 152/78 (102) 100 03/24/20 23:27 74 14 40 03/24/20 22:44 72 150/78 03/24/20 20:00 Mechanical Ventilator 03/24/20 20:00 97.5 64 15 148/70 (96) 97 03/24/20 20:00 40 03/24/20 20:00 66 03/24/20 19:05 66 15 40 03/24/20 16:00 Mechanical Ventilator 03/24/20 16:00 40 03/24/20 16:00 96.8 61 14 133/64 (87) 99 03/24/20 15:56 63 19 40 03/24/20 15:49 68 03/24/20 14:00 69 145/70 03/24/20 12:32 67 03/24/20 12:00 40 03/24/20 12:00 Mechanical Ventilator 03/24/20 12:00 96.4 67 21 140/74 (96) 96 03/24/20 11:16 72 22 40 Intake and Output 03/24/20 03/25/20 19:00 07:00 Intake Total 520 ml 485 ml Balance 520 ml 485 ml Intake Free Water 100 ml 100 ml Tube Feeding 420 ml 385 ml # Voids 1 1 # Bowel Movements 1 2 Laboratory Tests 03/25/20 03:03: White Blood Count 5.8, Red Blood Count 3.08L, Hemoglobin 9.3#L, Hematocrit 27.5#L, Mean Corpuscular Volume 89, Mean Corpuscular Hemoglobin 30.3, Mean C orpuscular Hemoglobin Concent 33.9, Red Cell Distribution Width 14.4, Platelet Count 129L, Mean Platelet Volume 7.7, Neutrophils (%) (Auto) 76.3H, Lymphocytes (%) (Auto) 17.8L, Monocytes (%) (Auto) 5.5, Eosinophils (%) (Auto) 0.0, Basophils (%) (Auto) 0.3, Sodium Level 135L, Potassium Level 4.0, Chloride Level 97L, Carbon Dioxide Level 29, Anion Gap 9, Blood Urea Nitrogen 63H, Creatinine 2.0H, Estimat Glomerular Filtration Rate 26.7, Glucose Level 76, Calcium Level 7.2L, Total Bilirubin 0.7, Aspartate Amino Transf (AST/SGOT) 49H, Alanine Aminotransferase (ALT/SGPT) 23, Alkaline Phosphatase 191H, Total Protein 5.3L, Albumin 1.2L, Globulin 4.1, Albumin/Globulin Ratio 0.3L, Amylase Level 79, Lipase 418H Height (Feet): 5 Height (Inches): 3.00 Weight (Pounds): 128 General Appearance: no apparent distress EENT: normal ENT inspection Neck: supple Cardiovascular: normal rate Respiratory/Chest: decreased breath sounds Abdomen: hypoactive bowel sounds Extremities: non-tender Assessment/Plan Problem List: (1) Hx of CABG ICD Codes: Z95.1 - Presence of aortocoronary bypass graft SNOMED: 600255156, 366365634 (2) History of tracheostomy ICD Codes: Z98.890 - Other specified postprocedural states SNOMED: 703919323, 411931285 (3) PEG (percutaneous endoscopic gastrostomy) status ICD Codes: Z93.1 - Gastrostomy status SNOMED: 873741098, 107218247 (4) Renal failure ICD Codes: N19 - Unspecified kidney failure SNOMED: 35397252, 254755828 (5) Severe anemia ICD Codes: D64.9 - Anemia, unspecified SNOMED: 401596603 Assessment/Plan: s/p EGD gastric ulcer on ppi and carafate fu H&H GTF s/p EGD GT tightened at the bedside repeat labs will fu Inder Mccauley MD Mar 25, 2020 09:12
[2020-03-25] MEDS: Pantoprazole Inj IVP SCH ×2 (09:28→20:08)
[2020-03-25] MEDS: Hydrocortisone 25mg supp RECTAL SCH ×2 (09:28→20:08)
[2020-03-25] MEDS: Aspirin Baby 81mg GT SCH (09:28)
[2020-03-25] MEDS: Zinc Oxide Oint 2oz TOPIC SCH ×2 (09:29→21:25)
[2020-03-25] MEDS: Dakin's 0.125% Soln (Quarter Strength) 16oz TOPIC SCH (09:29)
--- NOTE | 2020-03-25 09:30 | NUR ---
NURSE NOTES: Morning medication done successfully. Tolerated well. No GT residual. Oral are done. Will continue to be monitored.
--- NOTE | 2020-03-25 10:51 | Nephrology Progress Note ---
Assessment/Plan Problem List: (1) Renal failure (ARF), acute on chronic (2) Anemia (3) Hyponatremia (4) Respiratory failure Assessment (1) JAVIER (acute kidney injury) (2) Renal failure (ARF), acute on chronic (3) Feeding by G-tube (4) Tracheostomy in place (5) Electrolyte imbalance, hyponatremia (6) Anemia, severe (7) Respiratory failure, acute and chronic (8) history of elevated lipase, pancreatitis (9) Elevated troponin I (10) Sepsis Plan March 25: Dialyzed yesterday. Labs reviewed. Low phosphorus replaced. Continue per current management. Hemoglobin higher. March 24: Labs reviewed. Due for dialysis today. Continue per current management. Hemoglobin lower. Transfusion per emissions inspector. March 23: Labs reviewed. Dialyzed yesterday. Next dialysis tomorrow. Anemia management per emissions inspector. March 22: Labs reviewed. Due for dialysis today. Discussed with RN. Agree with discontinuation of the Norman catheter. Hemoglobin lower. Transfusion per emissions inspector. March 21: Labs reviewed. Will arrange for dialysis tomorrow. Continue per consultants. Will hold phosphorus binders at this time. March 20: Labs reviewed. Patient was dialyzed yesterday. Electrolyte a bnormalities corrected. Continue per current management. March 19: Due for dialysis today. Abnormal labs noted. All will be corrected after dialysis. March 18: Labs reviewed. Will dialyze tomorrow. Patient being transfused today. Patient due for abdominal paracentesis. We will keep the Norman in. Continue to monitor renal parameters and dialyze as needed. March 17: No CHEM panel done today. CBC reviewed. Hemoglobin is lowering. Dialyzed yesterday. Will check lab tomorrow. Continue per consultants. March 16: Labs reviewed. Due for dialysis today. Hemoglobin 10.2 today. Continue to monitor renal parameters. March 15: Labs reviewed. Dialyzed March 13. Due for dialysis March 16. Hemoglobin lower. 1 unit of packed RBCs ordered. Per orders. March 14: No labs drawn today. Dialyzed yesterday. Full code. Will check lab tomorrow. Dialysis as needed. March 13: Labs reviewed. Due for dialysis today. Patient remains full code. Continue per current management. March 12: Labs reviewed. Dialyzed yesterday. Due for dialysis tomorrow. Discussed with RN. Patient full code. Continue per current management. March 11: Labs reviewed. Dialyzed this morning. Phosphorus binders dose adjusted. Continue per consultants. Continue to monitor renal parameters. CT: Extensive thoracoabdominal aortic dissection March 10: Labs reviewed. Will order dialysis tomorrow. Phosphorus binders added. Continue per consultants. March 09: No chemistry panel done today. Patient dialyzed yesterday. On dextrose 10% for hypoglycemia. We will check labs tomorrow. Dialysis as n eeded. March 08: Labs reviewed. Will order dialysis today. Blood sugar low. D10 50 cc an hour started. Continue as is. March 07: Labs reviewed. Dialyzed March 05 and March 06. Continue to monitor renal parameters and hemoglobin. Abnormal electrolytes addressed. IV fluids stopped. Per orders. March 06: Labs reviewed. Dialyzed yesterday. Will reorder dialysis for today. Continue to monitor renal parameters. Hemoglobin 8.4. Patient full code. March 05: Labs reviewed. Patient did not receive dialysis until this morning. Proceed with dialysis. Continue to monitor renal parameters and hemoglobin and hematocrit. March 04: Labs reviewed. Hemoglobin lower. Patient actively bleeding. Was not dialyzed yesterday. Due for GI endoscopy. Continue fluid challenge. Transfusion as needed. Dialysis today. March 03: Labs reviewed. Dialysis ordered. Blood pressure medication all discontinued due to hypotensive state. Albumin bolus given. Continue to monitor renal parameters. Medication list reviewed. Midodrin for low blood pressure ordered Subjective ROS Limited/Unobtainable: Yes Objective Objective Last 24 Hour Vital Signs Date Time Temp Pulse Resp B/P (MAP) Pulse Ox O2 Delivery O2 Flow Rate FiO2 03/25/20 08:35 70 18 40 03/25/20 08:00 Mechanical Ventilator 03/25/20 08:00 40 03/25/20 08:00 97.3 61 16 136/53 (80) 100 03/25/20 07:25 58 03/25/20 06:40 72 20 40 03/25/20 05:15 81 136/81 03/25/20 04:00 Mechanical Ventilator 03/25/20 04:00 97.7 72 16 140/72 (94) 100 03/25/20 04:00 74 03/25/20 04:00 40 03/25/20 03:18 74 17 40 03/25/20 00:00 Mechanical Ventilator 03/25/20 00:00 77 03/25/20 00:00 98.1 75 15 152/78 (102) 100 03/24/20 23:27 74 14 40 03/24/20 22:44 72 150/78 03/24/20 20:00 Mechanical Ventilator 03/24/20 20:00 97.5 64 15 148/70 (96) 97 03/24/20 20:00 40 03/24/20 20:00 66 03/24/20 19:05 66 15 40 03/24/20 16:00 Mechanical Ventilator 03/24/20 16:00 40 03/24/20 16:00 96.8 61 14 133/64 (87) 99 03/24/20 15:56 63 19 40 03/24/20 15:49 68 03/24/20 14:00 69 145/70 03/24/20 12:32 67 03/24/20 12:00 40 03/24/20 12:00 Mechanical Ventilator 03/24/20 12:00 96.4 67 21 140/74 (96) 96 03/24/20 11:16 72 22 40 Intake and Output 03/24/20 03/25/20 19:00 07:00 Intake Total 520 ml 485 ml Balance 520 ml 485 ml Intake Free Water 100 ml 100 ml Tube Feeding 420 ml 385 ml # Voids 1 1 # Bowel Movements 1 2 Current Medications Medications (Trade) Dose Ordered Sig/Penny Route PRN Reason Start Time Stop Time Status Last Admin Dose Admin Acetaminophen (Tylenol) 650 mg Q6H PRN GT Mild Pain (Pain Scale 1-3) 03/02/20 22:30 04/01/20 22:29 03/18/20 11:14 Acetaminophen (Tylenol) 650 mg Q6H PRN GT Temp >100.5 03/03/20 03:00 04/01/20 22:29 03/23/20 21:49 Aspirin (ASA) 81 mg DAILY GT 03/07/20 09:00 04/21/20 08:59 03/25/20 09:28 Carvedilol (Coreg) 6.25 mg EVERY 8 HOURS GT 03/20/20 22:00 04/13/20 20:59 03/25/20 05:15 Chlorhexidine Gluconate (Ling-Hex 2%) 1 applic DAILY@1999 TOPIC 03/03/20 20:00 06/01/20 19:59 03/24/20 20:06 Dextrose (Dextrose 50%) 25 ml Q30M PRN IV Hypoglycemia 03/15/20 07:30 06/13/20 07:29 Dextrose (Dextrose 50%) 50 ml Q30M PRN IV Hypoglycemia 03/15/20 07:30 06/13/20 07:29 Hydralazine HCl (Apresoline) 25 mg Q6H PRN GT For High Blood Pressure 03/02/20 22:00 05/31/20 21:59 Hydrocortisone (Anusol HC) 25 mg Q12HR RECTAL 03/23/20 21:00 06/21/20 08:59 03/25/20 09:28 Hydromorphone HCl (Dilaudid) 0.5 mg Q4H PRN IVP For Pain 03/18/20 18:30 03/25/20 18:29 03/24/20 06:03 Loperamide HCl (Imodium) 2 mg Q6H PRN GT Diarrhea 03/06/20 12:45 04/05/20 12:44 03/06/20 13:01 Metoclopramide HCl (Reglan) 5 mg Q8HR IVP 03/04/20 11:45 04/03/20 11:44 03/25/20 05:15 Midodrine (Pro-Amatine) 10 mg EVERY 8 HOURS GT 03/17/20 22:00 06/01/20 12:59 03/24/20 13:02 Pantoprazole (Protonix) 40 mg EVERY 12 HOURS IVP 03/04/20 21:00 04/02/20 20:59 03/25/20 09:28 Polyethylene Glycol (Miralax) 17 gm BEDTIME PRN GT Constipation 03/02/20 22:00 04/01/20 21:59 Sodium Hypochlorite (Dakin's Quarter Strength) 1 applic DAILY TOPIC 03/04/20 09:00 04/03/20 08:59 03/25/20 09:29 Sucralfate (Carafate) 1 gm EVERY 6 HOURS GT 03/17/20 18:00 06/09/20 08:59 03/25/20 05:15 Tramadol HCl (Ultram) 50 mg EVERY 8 HOURS GT 03/19/20 14:00 03/26/20 13:59 03/25/20 05:15 Zinc Oxide (Zinc Oxide) 1 applic BID TOPIC 03/24/20 18:00 06/22/20 17:59 03/25/20 09:29 Laboratory Tests 03/25/20 03:03: White Blood Count 5.8, Red Blood Count 3.08L, Hemoglobin 9.3#L, Hematocrit 27.5#L, Mean Corpuscular Volume 89, Mean Corpuscular Hemoglobin 30.3, Mean Corpuscular Hemoglobin Concent 33.9, Red Cell Distribution Width 14.4, Platelet Count 129L, Mean Platelet Volume 7.7, Neutrophils (%) (Auto) 76.3H, Lymphocytes (%) (Auto) 17.8L, Monocytes (%) (Auto) 5.5, Eosinophils (%) (Auto) 0.0, Basophils (%) (Auto) 0.3, Sodium Level 135L, Potassium Level 4.0, Chloride Level 97L, Carbon Dioxide Level 29, Anion Gap 9, Blood Urea Nitrogen 63H, Creatinine 2.0H, Estimat Glomerular Filtration Rate 26.7, Glucose Level 76, Calcium Level 7.2L, Phosphorus Level 1.3L, Total Bilirubin 0.7, Aspartate Amino Transf (AST/SGOT) 49H, Alanine Aminotransferase (ALT/SGPT) 23, Alkaline Phosphatase 191H, Total Protein 5.3L, Albumin 1.2L, Globulin 4.1, Albumin/Globulin Ratio 0.3L, Amylase Level 79, Lipase 418H Height (Feet): 5 Height (Inches): 3.00 Weight (Pounds): 128 General Appearance: no apparent distress EENT: other - Trach and vent Cardiovascular: normal rate Respiratory/Chest: decreased breath sounds Abdomen: distended Johnny Houston MD Mar 25, 2020 10:50
--- NOTE | 2020-03-25 11:57 | NUR ---
INSURANCE CLINCALS/REVIEW FAXED TO [facility] T: [phone] F: [phone]
[2020-03-25 12:00] VITALS: BP 141/62
[2020-03-25] MEDS ORDERED: Sodium Phosphate 30 MM in NS 275 ML IVPB SCH (12:00)
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
--- NOTE | 2020-03-25 13:17 | Pulmonology Progress Note ---
Subjective ROS Limited/Unobtainable: Yes Interval Events: none major reported per nursing Constitutional: Reports: fever, other - resolved HEENT: Repors: no symptoms Respiratory: Reports: no symptoms Cardiovascular: Reports: no symptoms Gastrointestinal/Abdominal: Reports: diarrhea Allergies: Coded Allergies: No Known Allergies (Unverified , 10/10/17) All Systems: reviewed and negative except above Objective Last 24 Hour Vital Signs Date Time Temp Pulse Resp B/P (MAP) Pulse Ox O2 Delivery O2 Flow Rate FiO2 03/25/20 12:00 97.9 70 22 141/62 (88) 95 03/25/20 12:00 40 03/25/20 12:00 Mechanical Ventilator 03/25/20 10:36 71 18 40 03/25/20 08:35 70 18 40 03/25/20 08:00 Mechanical Ventilator 03/25/20 08:00 40 03/25/20 08:00 97.3 61 16 136/53 (80) 100 03/25/20 07:25 58 03/25/20 06:40 72 20 40 03/25/20 05:15 81 136/81 03/25/20 04:00 Mechanical Ventilator 03/25/20 04:00 97.7 72 16 140/72 (94) 100 03/25/20 04:00 74 03/25/20 04:00 40 03/25/20 03:18 74 17 40 03/25/20 00:00 Mechanical Ventilator 03/25/20 00:00 77 03/25/20 00:00 98.1 75 15 152/78 (102) 100 03/24/20 23:27 74 14 40 03/24/20 22:44 72 150/78 03/24/20 20:00 Mechanical Ventilator 03/24/20 20:00 97.5 64 15 148/70 (96) 97 03/24/20 20:00 40 03/24/20 20:00 66 03/24/20 19:05 66 15 40 03/24/20 16:00 Mechanical Ventilator 03/24/20 16:00 40 03/24/20 16:00 96.8 61 14 133/64 (87) 99 03/24/20 15:56 63 19 40 03/24/20 15:49 68 03/24/20 14:00 69 145/70 Intake and Output 03/24/20 03/25/20 19:00 07:00 Intake Total 520 ml 485 ml Balance 520 ml 485 ml Intake Free Water 100 ml 100 ml Tube Feeding 420 ml 385 ml # Voids 1 1 # Bowel Movements 1 2 General Appearance: no acute distress HEENT: atraumatic Respiratory: lungs clear Cardiovascular: normal rate, regular rhythm Extremities: other - edema bilateral Laboratory Tests 03/25/20 03:03: White Blood Count 5.8, Red Blood Count 3.08L, Hemoglobin 9.3#L, Hematocrit 27.5#L, Mean Corpuscular Volume 89, Mean Corpuscular Hemoglobin 30.3, Mean Corpuscular Hemoglobin Concent 33.9, Red Cell Distribution Width 14.4, Platelet Count 129L, Mean Platelet Volume 7.7, Neutrophils (%) (Auto) 76.3H, Lymphocytes (%) (Auto) 17.8L, Monocytes (%) (Auto) 5.5, Eosinophils (%) (Auto) 0.0, Basophils (%) (Auto) 0.3, Sodium Level 135L, Potassium Level 4.0, Chloride Level 97L, Carbon Dioxide Level 29, Anion Gap 9, Blood Urea Nitrogen 63H, Creatinine 2.0H, Estimat Glomerular Filtration Rate 26.7, Glucose Level 76, Calcium Level 7.2L, Phosphorus Level 1.3L, Total Bilirubin 0.7, Aspartate Amino Transf (AST/SGOT) 49H, Alanine Aminotransferase (ALT/SGPT) 23, Alkaline Phosphatase 191H, Total Protein 5.3L, Albumin 1.2L, Globulin 4.1, Albumin/Globulin Ratio 0.3L, Amylase Level 79, Lipase 418H Current Medications Medications (Trade) Dose Ordered Sig/Penny Route PRN Reason Start Time Stop Time Status Last Admin Dose Admin Acetaminophen (Tylenol) 650 mg Q6H PRN GT Mild Pain (Pain Scale 1-3) 03/02/20 22:30 04/01/20 22:29 03/18/20 11:14 Acetaminophen (Tylenol) 650 mg Q6H PRN GT Temp >100.5 03/03/20 03:00 04/01/20 22:29 03/23/20 21:49 Aspirin (ASA) 81 mg DAILY GT 03/07/20 09:00 04/21/20 08:59 03/25/20 09:28 Carvedilol (Coreg) 6.25 mg EVERY 8 HOURS GT 03/20/20 22:00 04/13/20 20:59 03/25/20 05:15 Chlorhexidine Gluconate (Ling-Hex 2%) 1 applic DAILY@1999 TOPIC 03/03/20 20:00 06/01/20 19:59 03/24/20 20:06 Dextrose (Dextrose 50%) 25 ml Q30M PRN IV Hypoglycemia 03/15/20 07:30 06/13/20 07:29 Dextrose (Dextrose 50%) 50 ml Q30M PRN IV Hypoglycemia 03/15/20 07:30 06/13/20 07:29 Hydralazine HCl (Apresoline) 25 mg Q6H PRN GT For High Blood Pressure 03/02/20 22:00 05/31/20 21:59 Hydrocortisone (Anusol HC) 25 mg Q12HR RECTAL 03/23/20 21:00 06/21/20 08:59 03/25/20 09:28 Hydromorphone HCl (Dilaudid) 0.5 mg Q4H PRN IVP For Pain 03/18/20 18:30 03/25/20 18:29 03/24/20 06:03 Loperamide HCl (Imodium) 2 mg Q6H PRN GT Diarrhea 03/06/20 12:45 04/05/20 12:44 03/06/20 13:01 Metoclopramide HCl (Reglan) 5 mg Q8HR IVP 03/04/20 11:45 04/03/20 11:44 03/25/20 05:15 Midodrine (Pro-Amatine) 10 mg EVERY 8 HOURS GT 03/17/20 22:00 06/01/20 12:59 03/24/20 13:02 Pantoprazole (Protonix) 40 mg EVERY 12 HOURS IVP 03/04/20 21:00 04/02/20 20:59 03/25/20 09:28 Polyethylene Glycol (Miralax) 17 gm BEDTIME PRN GT Constipation 03/02/20 22:00 04/01/20 21:59 Sodium Hypochlorite (Dakin's Quarter Strength) 1 applic DAILY TOPIC 03/04/20 09:00 04/03/20 08:59 03/25/20 09:29 Sucralfate (Carafate) 1 gm EVERY 6 HOURS GT 03/17/20 18:00 06/09/20 08:59 03/25/20 12:44 Tramadol HCl (Ultram) 50 mg EVERY 8 HOURS GT 03/19/20 14:00 03/26/20 13:59 03/25/20 05:15 Zinc Oxide (Zinc Oxide) 1 applic BID TOPIC 03/24/20 18:00 06/22/20 17:59 03/25/20 09:29 Assessment/Plan Assessment/Plan 1. Chronic respiratory failure. - CT chest/abd/pelv: improving pleural effusion 2. Mechanical ventilation. - current setting at AC 14, Vt 500, FiO2 40%, PEEP 5 saturating well - continue current setting - suction secretions as needed 3. Chronic tracheostomy. 4. Chronic G-tube. 5. Anemia. - s/p transfusion - stool OB positive (03/02, 03/03, 03/22) - off anticoags 6. Renal failure. 7. Leukocytosis and sepsis. - WBC now resolved 8. Sepsis UTI 9. Gram positive cocci bacteremia - f/u BCx negative for growth 10. COVID-19 negative 11. Diarrhea - C. diff neg 12. Hypoglycemia - resolved 13. Bradycardia - no urgent indication for pacemaker per cardio 14. Gastric ulcer - on PPI -No active bleeding - GI following 15. Pleural effusion - small; insufficient volume for safe thoracentesis 16. thoracic aortic aneurysm - noted on CT imaging - pt needs emergent transfer out to [facility] for CT surgery evaluation, primary MD aware - Pt might not be a candidate for TAA repair 17. Ascites - s/p paracentesis (03/18), 2.3L out 18. DVT ppx - on SCD -Venous duplex ultrasound of legs ordered 03/25 The care of this patient was discussed with my supervising physician Time spent for this encounter was approximately 31 minutes Cruz Wilson Mar 25, 2020 13:17
--- NOTE | 2020-03-25 14:16 | NUR ---
NURSE NOTES: Midodrine not administered because patient's BP is 146/62. Per eMAR, hold medication if SBP <110.
--- NOTE | 2020-03-25 15:00 | Diagnostic Imaging Report ---
Indication: Left leg edema Technique: Grayscale and duplex images of the left lower extremity veins Comparison: 01/16/2020 Findings: On the left, grayscale and duplex images demonstrate no evidence of intraluminal thrombus. Normal phasic Doppler waveforms, demonstrating normal augmentation response and no evidence of valvular insufficiency. Greater saphenous vein(s) and tibial veins are patent. Normal compressibility. No significant change Impression: Negative for evidence of lower extremity deep venous thrombosis on the left
--- NOTE | 2020-03-25 15:45 | NUR ---
NURSE NOTES: Bed bath given. patient tolerated well. wound dressing on sacral done. patient still has residual from the mouth. occasional suctioning done.
[2020-03-25 16:00] VITALS: BP 141/68
--- NOTE | 2020-03-25 19:30 | NUR ---
NURSE HAND-OFF REPORT: Important Events on Shift: stable Patient Status: Diet: Pending Orders: Pending Results/Labs: Pending MD notification: Latest Vital Signs: Temperature 97.9 , Pulse 66 , B/P 141 /68 , Respiratory Rate 16 , O2 SAT 98 , Mechanical Ventilator, O2 Flow Rate . Vital Sign Comment: EKG Rhythm: Sinus Rhythm Rhythm change?: N Notified?: N -Dr Екатерина HATFIELD Response: No New Orders Received Latest Chavarria Fall Score: 60 Fall Risk: High Risk Safety Measures: Call light Within Reach, Bed Alarm Zone 2, Side Rails Side Rails x3, Bed position Low and Locked. Fall Precautions: Yellow Socks Report given to ERASMO Sen.
--- NOTE | 2020-03-25 19:31 | NUR ---
NURSE NOTES: Received report & pt from ERASMO Kaba. Pt in bed, non-verbal, trach to vent with current setting saturating 99%. Gtube intact with Nepro 35ml/hr running. Right subclavian catheter with dressing C/D/I. IV site intact & S/L'd. Bed low & locked, call light within reach. Will continue to monitor.
[2020-03-25 20:00] VITALS: BP 127/87
[2020-03-25] MEDS: Dyna-Hex 2% Top Sol 2oz TOPIC SCH (20:08)
--- NOTE | 2020-03-25 21:30 | NUR ---
NURSE NOTES: Due PM meds given. Gtube 0ml residual. Pt in no acute distress. Will continue to monitor for any changes.
--- NOTE | 2020-03-25 23:30 | NUR ---
NURSE NOTES: Midnight meds given. Turned & repositioned. Oral care given. Addendum: 03/25/20 at 2359 by Corie Perdue RN Blood sugar checked 112mg/dL; WNL. No insulin needed.
--- NOTE | 2020-03-25 23:56 | General Progress Note ---
Subjective Constitutional: Reports: no symptoms HEENT: Reports: no symptoms Cardiovascular: Reports: no symptoms Respiratory: Reports: no symptoms Gastrointestinal/Abdominal: Reports: no symptoms Genitourinary: Reports: no symptoms Neurologic/Psychiatric: Reports: anxiety, depressed Endocrine: Reports: no symptoms Allergies: Coded Allergies: No Known Allergies (Unverified , 10/10/17) Objective Last 24 Hour Vital Signs Date Time Temp Pulse Resp B/P (MAP) Pulse Ox O2 Delivery O2 Flow Rate FiO2 03/25/20 21:23 62 127/87 03/25/20 20:00 Mechanical Ventilator 03/25/20 20:00 98.2 62 16 127/87 (100) 99 03/25/20 20:00 98.2 62 20 127/87 (100) 99 03/25/20 20:00 Mechanical Ventilator 03/25/20 20:00 40 03/25/20 20:00 60 03/25/20 18:58 66 16 40 03/25/20 16:00 97.9 65 20 141/68 (92) 98 03/25/20 16:00 Mechanical Ventilator 03/25/20 16:00 40 03/25/20 16:00 63 03/25/20 15:38 62 17 40 03/25/20 14:15 61 146/62 03/25/20 12:00 97.9 70 22 141/62 (88) 95 03/25/20 12:00 40 03/25/20 12:00 Mechanical Ventilator 03/25/20 11:30 57 03/25/20 10:36 71 18 40 03/25/20 08:35 70 18 40 03/25/20 08:00 Mechanical Ventilator 03/25/20 08:00 40 03/25/20 08:00 97.3 61 16 136/53 (80) 100 03/25/20 07:25 58 03/25/20 06:40 72 20 40 03/25/20 05:15 81 136/81 03/25/20 04:00 Mechanical Ventilator 03/25/20 04:00 97.7 72 16 140/72 (94) 100 03/25/20 04:00 74 03/25/20 04:00 40 03/25/20 03:18 74 17 40 03/25/20 00:00 Mechanical Ventilator 03/25/20 00:00 77 03/25/20 00:00 98.1 75 15 152/78 (102) 100 Intake and Output 03/24/20 03/25/20 19:00 07:00 Intake Total 520 ml 520 ml Balance 520 ml 520 ml Intake Free Water 100 ml 100 ml Tube Feeding 420 ml 420 ml # Voids 1 1 # Bowel Movements 1 2 Laboratory Tests 03/25/20 03:03: White Blood Count 5.8, Red Blood Count 3.08L, Hemoglobin 9.3#L, Hematocrit 27.5#L, Mean Corpuscular Volume 89, Mean Corpuscular Hemoglobin 30.3, Mean Corpuscular Hemoglobin Concent 33.9, Red Cell Distribution Width 14.4, Platelet Count 129L, Mean Platelet Volume 7.7, Neutrophils (%) (Auto) 76.3H, Lymphocytes (%) (Auto) 17.8L, Monocytes (%) (Auto) 5.5, Eosinophils (%) (Auto) 0.0, Basophils (%) (Auto) 0.3, Sodium Level 135L, Potassium Level 4.0, Chloride Level 97L, Carbon Dioxide Level 29, Anion Gap 9, Blood Urea Nitrogen 63H, Creatinine 2.0H, Estimat Glomerular Filtration Rate 26.7, Glucose Level 76, Calcium Level 7.2L, Phosphorus Level 1.3L, Total Bilirubin 0.7, Aspartate Amino Transf (AST/SGOT) 49H, Alanine Aminotransferase (ALT/SGPT) 23, Alkaline Phosphatase 191H, Total Protein 5.3L, Albumin 1.2L, Globulin 4.1, Albumin/Globulin Ratio 0.3L, Amylase Level 79, Lipase 418H Height (Feet): 5 Height (Inches): 3.00 Weight (Pounds): 128 General Appearance: no apparent distress, alert EENT: normal ENT inspection Neck: non-tender, normal alignment, supple Cardiovascular: normal rate, regular rhythm, no gallop/murmur, no JVD Respiratory/Chest: lungs clear, normal breath sounds, no respiratory distress, no accessory muscle use Abdomen: normal bowel sounds, non tender, soft, no organomegaly, no mass Extremities: non-tender Neurologic: alert, responsive Skin: warm/dry Assessment/Plan Status Narrative Patient is awake alert afebrile quiet with eye contact and no verbal response in blood pressure been stable now for several days) is in the normal range is stable as well still waiting for department of vascular surgery to accept the patient because of 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
[2020-03-26] VITALS: BP 160/77
--- NOTE | 2020-03-26 01:30 | NUR ---
NURSE NOTES: Pt saturating 98% with current vent settings. No active bleeding noted. Turned & repositioned for comfort. Will monitor for any changes.
--- NOTE | 2020-03-26 03:30 | NUR ---
NURSE NOTES: Pt turned & repositioned. In no acute distress, saturating 97% in current vent settings.
[2020-03-26 04:00] VITALS: BP 155/73
[2020-03-26 04:49] LABS: BASOPHILS % (AUTO) 0.4 % (0.0-2.0); EOSINOPHILS % (AUTO) 0.2 % (0.0-3.0); HEMOGLOBIN 8.8 G/DL (12.0-16.0); MEAN CORPUSCULAR VOLUME 89 FL (80-99); MONOCYTES % (AUTO) 4.1 % (1.0-10.0); NEUTROPHILS % (AUTO) 78.3 % (45.0-75.0); PLATELET COUNT 125 K/UL (150-450); RED BLOOD COUNT 2.91 M/UL (4.20-5.40); RED CELL DISTRIBUTION WIDTH 14.3 % (11.6-14.8)
[2020-03-26 05:02] LABS: ALBUMIN 1.2 G/DL (3.4-5.0); ALBUMIN/GLOBULIN RATIO 0.3 (1.0-2.7); BILIRUBIN,TOTAL 0.6 MG/DL (0.2-1.0); CALCIUM 7.1 MG/DL (8.5-10.1); CREATININE 2.2 MG/DL (0.55-1.30); PHOSPHORUS 2.3 MG/DL (2.5-4.9); POTASSIUM 3.9 MMOL/L (3.5-5.1)
--- NOTE | 2020-03-26 05:30 | NUR ---
NURSE NOTES: Pt cleaned. oral care given. Blood sugar checked & noted to be 89 mg/dL. Morning meds given. Will continue to monitor for any acute changes.
[2020-03-26] MEDS: Sucralfate 1gm tab GT SCH ×3 (05:33→17:18)
[2020-03-26] MEDS: traMADol 50mg tab GT SCH (05:34)
[2020-03-26] MEDS: Midodrine 10mg tab GT SCH ×3 (05:34→22:00)
[2020-03-26] MEDS: Metoclopramide 10mg/2ml Inj IVP SCH ×3 (05:34→22:11)
[2020-03-26] MEDS: Carvedilol 6.25mg Tab GT SCH ×3 (05:34→22:11)
[2020-03-26] MEDS: Zinc Oxide Oint 2oz TOPIC SCH ×3 (05:35→22:11)
--- NOTE | 2020-03-26 06:28 | Hematology/Onc Progress Note ---
Assessment/Plan Assessment/Plan # Leukocytosis, now with likely bacteremia, as per ID care --> Cxr: : Large left abiola consolidation/effusion --> wbc 30-->40-->27->30->29-->35->32-->28-->21->10.2-->6.6 --> ABX angelo/vanc-->tobra/edson/vanc-->dapto/ceftazadine --> smear reviewed --> ID recs are noted # Anemia of chronic disease due to underlying chronic medical issues, multifactorial --> Anemia workup has been reviewed, cw acd --> No evidence of hemolysis is noted, peripheral smear has been reviewed. --> Hgb goal >7. Transfuse prn. --> Epogen required in prior --> Medications have been reviewed --> low threshold for gi evaluation in case has occult + --> hgb 1.9-->5-->7.1-->8.8-->8.1->7.5-> 8.2-->6.8-->9.2-->8.4->7.7-->7.1-->8.8 --> 1 unit prbc1/, 2 units 01/15, 03/02, 2, 03/24 --> gi eval as needed # Elevated tumor markers, cea and ca 19.9 --> reviewed prior 01/27/20 cat scan a/p --> no masses noted, hold off further extensive w/u # Thrombocytopenia likely reactive v medication induced --> plt 200-->129->91-->86->100->78-->86-->87-->125 --> transfuse as needed --> r/o dic, has been ruled out --> anticoag as needed # Coagulopathy with inr 1.5 --> consider vit k/ffp as needed preprocedure --> labs noted # Aortic dissection as seen on Ct ==> when stable, consider transfer hloc # JAVIER initially >2 --> on ivfs --> per renal # Elevated d-dimer, likely infection related --> venous duplex prior neg --> in prior neg # Dysphagia s/p peg --> as per gi # Thoracic aortic dissection --> s/p repair early 2017 # Chronic Resp failure -> s/p trach/vent # Psychiatric history on ativan/haldol # [place] resident # Dvt ppx --> scds The timing of this note does not necessarily reflect the time of the patient was seen. Greatly appreciate consultation. Subjective Allergies: Coded Allergies: No Known Allergies (Unverified , 10/10/17) All Systems: reviewed and negative except above Subjective 03/04 for 1 unit transfusion this am as hgb remains low, wbc better 03/05 egd was done did show large nonbleeding gastric ulcer, high tumor markers 03/06 nv, with davis overnight, bp remains stable, with occult + stool, roman Rn 03/09 nv, remains stable, on vanc/tobra/edson, meds reviewed, no bleeding 03/10 nv, on vent, no bleeding, receiving abx, no night sweats 03/11 nv, dw surgeon and pcp, with aortic dissection to transfer [facility] when stable 03/12 nv, labs reviewed, wbc 21, hgb 7.5, otherwise is comfortable 03/13 nv, labs noted, no bleeding, wbc 13, hgb improved, meds reviewed 03/15 nv, meds reviewed, labs noted, no bleeding, on vent 03/16 nv/tv, peg, meds noted, hgb remains stable, improved to 10 03/17 s/p egd, with gastric ulceration noted, hgb stable / labs noted, hgb 6.8, to get 1 unit prbc, meds reviewed 03/19 hgb 9.2, plt 78, no hemoptysis, is comfortable 03/20 labs reviewed, meds noted, no bleeding, roman rn 03/22 wound treatment, vent, with gtube, labs reviewed, roman rn 03/23 labs reviewed, meds noted, no bleeding, with gt 03/24 large bm overnight that was bloody, hgb 7.1, roman rn 03/25 labs pending this am, comfortable, nsr, meds noted 03/26 nv, vent, with gt, labs reviewed, hgb 8.8 Objective Objective Current Medications Medications (Trade) Dose Ordered Sig/Penny Route PRN Reason Start Time Stop Time Status Last Admin Dose Admin Acetaminophen (Tylenol) 650 mg Q6H PRN GT Mild Pain (Pain Scale 1-3) 03/02/20 22:30 04/01/20 22:29 03/18/20 11:14 Acetaminophen (Tylenol) 650 mg Q6H PRN GT Temp >100.5 03/03/20 03:00 04/01/20 22:29 03/23/20 21:49 Aspirin (ASA) 81 mg DAILY GT 03/07/20 09:00 04/21/20 08:59 03/25/20 09:28 Carvedilol (Coreg) 6.25 mg EVERY 8 HOURS GT 03/20/20 22:00 04/13/20 20:59 03/26/20 05:34 Chlorhexidine Gluconate (Ling-Hex 2%) 1 applic DAILY@1999 TOPIC 03/03/20 20:00 06/01/20 19:59 03/25/20 20:08 Dextrose (Dextrose 50%) 25 ml Q30M PRN IV Hypoglycemia 03/15/20 07:30 06/13/20 07:29 Dextrose (Dextrose 50%) 50 ml Q30M PRN IV Hypoglycemia 03/15/20 07:30 06/13/20 07:29 Hydralazine HCl (Apresoline) 25 mg Q6H PRN GT For High Blood Pressure 03/02/20 22:00 05/31/20 21:59 Hydrocortisone (Anusol HC) 25 mg Q12HR RECTAL 03/23/20 21:00 06/21/20 08:59 03/25/20 20:08 Loperamide HCl (Imodium) 2 mg Q6H PRN GT Diarrhea 03/06/20 12:45 04/05/20 12:44 03/06/20 13:01 Metoclopramide HCl (Reglan) 5 mg Q8HR IVP 03/04/20 11:45 04/03/20 11:44 03/26/20 05:34 Midodrine (Pro-Amatine) 10 mg EVERY 8 HOURS GT 03/17/20 22:00 06/01/20 12:59 03/24/20 13:02 Pantoprazole (Protonix) 40 mg EVERY 12 HOURS IVP 03/04/20 21:00 04/02/20 20:59 03/25/20 20:08 Polyethylene Glycol (Miralax) 17 gm BEDTIME PRN GT Constipation 03/02/20 22:00 2/17/21 21:59 Sodium Hypochlorite (Dakin's Quarter Strength) 1 applic DAILY TOPIC 03/04/20 09:00 04/03/20 08:59 03/25/20 09:29 Sucralfate (Carafate) 1 gm EVERY 6 HOURS GT 03/17/20 18:00 06/09/20 08:59 03/26/20 05:33 Tramadol HCl (Ultram) 50 mg EVERY 8 HOURS GT 03/19/20 14:00 03/26/20 13:59 03/26/20 05:34 Zinc Oxide (Zinc Oxide) 1 applic Q8HR TOPIC 03/25/20 22:00 06/22/20 17:59 03/26/20 05:35 Last 24 Hour Vital Signs Date Time Temp Pulse Resp B/P (MAP) Pulse Ox O2 Delivery O2 Flow Rate FiO2 03/26/20 05:34 67 155/73 03/26/20 04:00 40 03/26/20 04:00 67 03/26/20 04:00 98.1 68 19 155/73 (100) 97 03/26/20 04:00 Mechanical Ventilator 03/26/20 01:29 76 19 40 03/26/20 00:00 97.9 64 18 160/77 (104) 100 03/26/20 00:00 40 03/26/20 00:00 63 03/26/20 00:00 Mechanical Ventilator 03/25/20 21:23 62 127/87 03/25/20 20:00 Mechanical Ventilator 03/25/20 20:00 98.2 62 16 127/87 (100) 99 03/25/20 20:00 98.2 62 20 127/87 (100) 99 03/25/20 20:00 Mechanical Ventilator 03/25/20 20:00 40 03/25/20 20:00 60 03/25/20 18:58 66 16 40 03/25/20 16:00 97.9 65 20 141/68 (92) 98 03/25/20 16:00 Mechanical Ventilator 03/25/20 16:00 40 03/25/20 16:00 63 03/25/20 15:38 62 17 40 03/25/20 14:15 61 146/62 03/25/20 12:00 97.9 70 22 141/62 (88) 95 03/25/20 12:00 40 03/25/20 12:00 Mechanical Ventilator 03/25/20 11:30 57 03/25/20 10:36 71 18 40 03/25/20 08:35 70 18 40 03/25/20 08:00 Mechanical Ventilator 03/25/20 08:00 40 03/25/20 08:00 97.3 61 16 136/53 (80) 100 03/25/20 07:25 58 03/25/20 06:40 72 20 40 03/25/20 05:15 81 136/81 03/25/20 04:00 Mechanical Ventilator 03/25/20 04:00 97.7 72 16 140/72 (94) 100 03/25/20 04:00 74 03/25/20 04:00 40 03/25/20 03:18 74 17 40 03/25/20 00:00 Mechanical Ventilator 03/25/20 00:00 77 03/25/20 00:00 98.1 75 15 152/78 (102) 100 03/24/20 23:27 74 14 40 03/24/20 22:44 72 150/78 03/24/20 20:00 Mechanical Ventilator 03/24/20 20:00 97.5 64 15 148/70 (96) 97 03/24/20 20:00 40 03/24/20 20:00 66 03/24/20 19:05 66 15 40 03/24/20 16:00 Mechanical Ventilator 03/24/20 16:00 40 03/24/20 16:00 96.8 61 14 133/64 (87) 99 03/24/20 15:56 63 19 40 03/24/20 15:49 68 03/24/20 14:00 69 145/70 03/24/20 12:32 67 03/24/20 12:00 40 03/24/20 12:00 Mechanical Ventilator 03/24/20 12:00 96.4 67 21 140/74 (96) 96 03/24/20 11:16 72 22 40 03/24/20 08:00 Mechanical Ventilator 03/24/20 08:00 40 03/24/20 08:00 59 03/24/20 08:00 96.6 60 21 124/61 (82) 98 03/24/20 06:45 58 14 40 Intake and Output 03/25/20 03/26/20 19:00 07:00 Intake Total 540 ml 410 ml Balance 540 ml 410 ml Intake Free Water 120 ml 60 ml Tube Feeding 420 ml 350 ml # Voids 1 1 Labs Test 03/23/20 11:36 03/23/20 17:19 03/23/20 20:48 03/24/20 03:45 POC Whole Blood Glucose 86 MG/DL (74-106) 67 MG/DL (74-106) 80 MG/DL (74-106) White Blood Count 5.0 K/UL (4.8-10.8) Red Blood Count 2.32 M/UL (4.20-5.40) Hemoglobin 7.1 G/DL (12.0-16.0) Hematocrit 20.4 % (37.0-47.0) Mean Corpuscular Volume 88 FL (80-99) Mean Corpuscular Hemoglobin 30.7 PG (27.0-31.0) Mean Corpuscular Hemoglobin Concent 35.0 G/DL (32.0-36.0) Red Cell Distribution Width 15.6 % (11.6-14.8) Platelet Count 90 K/UL (150-450) Mean Platelet Volume 8.2 FL (6.5-10.1) Neutrophils (%) (Auto) % (45.0-75.0) Lymphocytes (%) (Auto) % (20.0-45.0) Monocytes (%) (Auto) % (1.0-10.0) Eosinophils (%) (Auto) % (0.0-3.0) Basophils (%) (Auto) % (0.0-2.0) Prothrombin Time 14.1 SEC (9.30-11.50) Prothromb Time International Ratio 1.3 (0.9-1.1) Activated Partial Thromboplast Time 30 SEC (23-33) Sodium Level 132 MMOL/L (136-145) Potassium Level 3.9 MMOL/L (3.5-5.1) Chloride Level 96 MMOL/L (98-107) Carbon Dioxide Level 27 MMOL/L (21-32) Anion Gap 9 mmol/L (5-15) Blood Urea Nitrogen 78 mg/dL (7-18) Creatinine 2.3 MG/DL (0.55-1.30) Estimat Glomerular Filtration Rate 22.7 mL/min (>60) Glucose Level 86 MG/DL (74-106) Calcium Level 6.9 MG/DL (8.5-10.1) Phosphorus Level 2.3 MG/DL (2.5-4.9) Magnesium Level 2.0 MG/DL (1.8-2.4) Total Bilirubin 0.4 MG/DL (0.2-1.0) Direct Bilirubin 0.2 MG/DL (0.0-0.3) Aspartate Amino Transf (AST/SGOT) 41 U/L (15-37) Alanine Aminotransferase (ALT/SGPT) 21 U/L (12-78) Alkaline Phosphatase 131 U/L (46-116) C-Reactive Protein, Quantitative 18.1 mg/dL (0.00-0.90) Pro-B-Type Natriuretic Peptide > 96634 pg/mL (0-125) Total Protein 4.6 G/DL (6.4-8.2) Albumin 1.1 G/DL (3.4-5.0) Test 03/25/20 03:03 03/26/20 03:20 White Blood Count 5.8 K/UL (4.8-10.8) 6.0 K/UL (4.8-10.8) Red Blood Count 3.08 M/UL (4.20-5.40) 2.91 M/UL (4.20-5.40) Hemoglobin 9.3 G/DL (12.0-16.0) 8.8 G/DL (12.0-16.0) Hematocrit 27.5 % (37.0-47.0) 26.0 % (37.0-47.0) Mean Corpuscular Volume 89 FL (80-99) 89 FL (80-99) Mean Corpuscular Hemoglobin 30.3 PG (27.0-31.0) 30.2 PG (27.0-31.0) Mean Corpuscular Hemoglobin Concent 33.9 G/DL (32.0-36.0) 33.8 G/DL (32.0-36.0) Red Cell Distribution Width 14.4 % (11.6-14.8) 14.3 % (11.6-14.8) Platelet Count 129 K/UL (150-450) 125 K/UL (150-450) Mean Platelet Volume 7.7 FL (6.5-10.1) 8.1 FL (6.5-10.1) Neutrophils (%) (Auto) 76.3 % (45.0-75.0) 78.3 % (45.0-75.0) Lymphocytes (%) (Auto) 17.8 % (20.0-45.0) 17.0 % (20.0-45.0) Monocytes (%) (Auto) 5.5 % (1.0-10.0) 4.1 % (1.0-10.0) Eosinophils (%) (Auto) 0.0 % (0.0-3.0) 0.2 % (0.0-3.0) Basophils (%) (Auto) 0.3 % (0.0-2.0) 0.4 % (0.0-2.0) Sodium Level 135 MMOL/L (136-145) 137 MMOL/L (136-145) Potassium Level 4.0 MMOL/L (3.5-5.1) 3.9 MMOL/L (3.5-5.1) Chloride Level 97 MMOL/L (98-107) 99 MMOL/L (98-107) Carbon Dioxide Level 29 MMOL/L (21-32) 30 MMOL/L (21-32) Anion Gap 9 mmol/L (5-15) 8 mmol/L (5-15) Blood Urea Nitrogen 63 mg/dL (7-18) 73 mg/dL (7-18) Creatinine 2.0 MG/DL (0.55-1.30) 2.2 MG/DL (0.55-1.30) Estimat Glomerular Filtration Rate 26.7 mL/min (>60) 23.9 mL/min (>60) Glucose Level 76 MG/DL (74-106) 110 MG/DL (74-106) Calcium Level 7.2 MG/DL (8.5-10.1) 7.1 MG/DL (8.5-10.1) Phosphorus Level 1.3 MG/DL (2.5-4.9) 2.3 MG/DL (2.5-4.9) Total Bilirubin 0.7 MG/DL (0.2-1.0) 0.6 MG/DL (0.2-1.0) Aspartate Amino Transf (AST/SGOT) 49 U/L (15-37) 41 U/L (15-37) Alanine Aminotransferase (ALT/SGPT) 23 U/L (12-78) 21 U/L (12-78) Alkaline Phosphatase 191 U/L (46-116) 184 U/L (46-116) Total Protein 5.3 G/DL (6.4-8.2) 5.1 G/DL (6.4-8.2) Albumin 1.2 G/DL (3.4-5.0) 1.2 G/DL (3.4-5.0) Globulin 4.1 g/dL 3.9 g/dL Albumin/Globulin Ratio 0.3 (1.0-2.7) 0.3 (1.0-2.7) Amylase Level 79 U/L (25-115) Lipase 418 U/L (73-393) Magnesium Level 2.0 MG/DL (1.8-2.4) C-Reactive Protein, Quantitative 13.8 mg/dL (0.00-0.90) Pro-B-Type Natriuretic Peptide > 44179 pg/mL (0-125) Height (Feet): 5 Height (Inches): 3.00 Weight (Pounds): 128 Objective Physical Exam: Vitals: reviewed General: NAD HEENT: nc, at Neck: supple ++trach/vent Chest: clear breath sounds bilaterally Cardiovascular: RRR, no s3, s4 Abdomen: soft, nontender, nd +gtube Extremities: no cce, normal range of motion Neuro: alert Evan Muhammad MD Mar 26, 2020 06:28
--- NOTE | 2020-03-26 07:20 | NUR ---
NURSE NOTES: Received report from ERASMO Sen. Pt is lying in bed, not in acute distress. Sinus Rhythm on the manager provider relations. Trach to vent tolerating vent setting of AC 14, TV 500, 40% FiO2, PEEP 5, saturating 98%. Pt has a lot of oral secretions, oral and trach suctioning done. G-Tube is intact and patent running Nepro 35cc/hr. Pt is oliguric. Perma catheter in Right upper chest is intact and patent. IV saline lock in Left forearm 22G is intact and patent. Bed is locked and in lowest position, bed alarm gleason operator light is with the pt. Head of bed is elevated at all times. Recent labs, isolation, medications and MD orders are reviewed. Will continue to monitor pt. Will continue with the plan of care.
--- NOTE | 2020-03-26 07:34 | NUR ---
NURSE HAND-OFF REPORT: Important Events on Shift:[NA] Patient Status: [unchanged] Diet: [per doctor order] Pending Orders: [na] Pending Results/Labs:[na] Pending MD notification:[na] Latest Vital Signs: Temperature 98.1 , Pulse 67 , B/P 155 /73 , Respiratory Rate 19 , O2 SAT 97 , Mechanical Ventilator, O2 Flow Rate . Vital Sign Comment: [stable] EKG Rhythm: Sinus Rhythm Rhythm change?: N MD Notified?: N -Dr Екатерина HATFIELD Response: No New Orders Received Latest Chavarria Fall Score: 60 Fall Risk: High Risk Safety Measures: Call light Within Reach, Bed Alarm Zone 2, Side Rails Side Rails x3, Bed position Low and Locked. Fall Precautions: Yellow Socks Report given to [Shaniqua Rosen RN].
[2020-03-26 08:00] VITALS: BP 165/83
--- NOTE | 2020-03-26 08:04 | Infectious Diseases Prog Note ---
Assessment/Plan 49yo F with: MDR Kleb pna bacteremia AMS Anemia to 1.9 on admission 03/02 Leukocytosis to 40, improving GPC bacteremia UTI Pneumonia c/b mod-large R pleural effusion and small L pleural effusion - compressive atelectasis Hypotension 03/02 BCx 1/2 +Staph epi, 12 +Staph haemolyticus (m/l skin colonizers) UA+, UCx >100k P.stuartii (S-angelo) & CRE P.mirablis (R-polyB/colistin, S- tobramycin, per [facility] is "intrinsically resistant to Avycaz/Zerbaxa" not clear why to me and they are unable to elaborate more) COVID rapid neg, PCR neg CXR: Tracheostomy again demonstrated. Interim placement of a right jugular tunneled dialysis catheter. There is infiltrate and volume loss in the left lung, particularly in the perihilar region, suprahilar region, and base. Consolidation at the lung base is similar. The perihilar and suprahilar region consolidation is new. The right lung pleural space are clear. C.dif neg 03/03 BCx NTD 03/06 BCx 2/2 +MDR Kleb pna (arnett-R, including R-polyB, colistin), 02/14 +E.faecium VRE (R-amp, S-linezolid) 03/08 BCx NTD 03/09 CT CAP: Very limited exam, as described, due to massive anasarca. This could limit visualization of the discrete fluid collection such as an abscess. Extensive thoracoabdominal aortic dissection, as described above. Current flap begins just distal to the left subclavian artery origin; per report, there is history of surgical repair so there may have been surgical repair of the ascending thoracic aorta. Bilateral pleural effusions, slightly smaller than on earlier exams. Extensive atelectasis as a result. Extensive pulmonary par enchymal disease as detailed above. This may reflect pneumonia or pulmonary edema or both. Evidence of pulmonary arterial hypertension, with dilatation of the pulmonary artery. Considerable ascites fluid. 03/11 Chest US: Small right, trace left pleural effusions, insufficient for safe thoracentesis AF Sepsis Leukocytosis Hypoxia on vent Pneumonia c/b L pleural effusion (recurrent, prior determined to be transudative) - s/p thora 01/21, 1050cc removed Volume overload, BNP >35,0000, likely 2/2 progressive CKD --> ESRD ?Pancreatitis, Lipase >2000 Acute anemia to 5s CONS bacteremia, ?contaminant Aflutter w/ RVR 01/13 BCx 2/2 +S. epi COVID PCR neg Flu neg CXR: Large left pleural effusion. Bilateral interstitial and airspace infiltrates versus edema MRSA nares neg 01/16 BCx NTD 01/17 BCx /2 +Staph auricularis (skin colonizer) 01/18 Resp cx +MDR CRE PsA (S-gent, I-colistin, R-polyB) (Intermediate to Zerbaxa, Resistant to Avycaz) 01/18 C.dif neg 01/18 CXR: Similar opacification of the left hemithorax likely representing combination of pleural effusion with atelectasis versus pneumonia/edema. Decreased but persistent hazy opacity throughout the right lung may represent edema versus infectious/inflammatory process. 01/20 BCx NTD 01/21 L thora 1050 cc removed, cx NTD 01/25 Wound cx from Gtube site +CRE Kleb pna (arnett-R) and MDR PsA (colonizers) 01/26 CT A/P: Limited exam, due to severe diffuse anasarca. Ascites. Bilateral pleural effusions. Basilar pulmonary atelectatic changes and consolidation. Gastrostomy. Atrophic left kidney with a nephroureteral stents again demonstrated. Possible retrococcygeal decubitus changes. Correlate with clinical findings, consider MRI if there is concern for sacral osteomyelitis. Right hip intertrochanteric fracture, also previously demonstrated. Left femoral dialysis catheter. Nonspecific right lobe liver lesion is unchanged, not well- demonstrated. ctasia bordering on aneurysmal dilatation and possible chronic dissection of the distal thoracic aorta, also previously described. JAVIER on CKD On previous admission Sep-Oct 2019 required HD for short period Going to start HD this admission again R/o COVID 01/14 COVID PCR neg 12/29 neg at [facility] per report H/o UTI 10/15 u/a wbc 30-40, nit neg, leuk +3; ucx ESBL P. mirablis, ESBL M. morganii //20 u/a wbc tnct, nit neg, leuk +3; ucx >100k MDR P. stuarti (S Ceftriaxone, Meropenem) 8/25 u/a wbc tnct, nit neg, leuk ; ucx >100k VRE 10/15/19 u/a wbc tnct; ucx >100k ESBL P. stuarti (S ertapenem, aztreonam) H/o transudative pleural effusion 11/28 Sp Thora (w: 169, PMN: 2%, L: 49% , LDH: 57, prot 2.5); cx Neg H/o PNA 10/15/19 Resp cx ESBL P. mirabilis, MDR P.a. (S only to Gent) 09/22 Resp cx + MDR PsA (S-gent; I-colistin; R-levofloxacin, Zosyn, angelo) 09/16/19 Sp cx ESBL P. mirablis H/o PPM site (pocket) infection and pocket abscess 2ry to S. epi-11/2018, sp >6weeks IV vancomycin 11/27 SP ABBIE: no evidence for vegetation on any of the valves 11/26/18 SP PPM removal: OR findings:The fibrous capsule enclosing the generator was then opened and there was a [id number] amount of yellowish fluid drainage. The generator was then removed.Atrial and ventricular leads were detached. The necrotic tissue of the pocket was then removed and the pocket was flushed with an antibiotic solution. Capsule, wound tissue and lead tip cx: Neg 2d echo: no vegetation seen US chest: 4.6 x 3.4 x 0.9 cm hypoechoic/anechoic area overlying left chest pacemaker power pack. This could represent either a discrete fluid collection or a focal area of very edematous tissue. Infected fluid pocket also possible. 11/18 Bcx 3/4 S. epi; 11/20 Bcx neg; 11/24 Bcx Neg; 11/27 Bcx Neg CAD s/p CABG GERD/gastritis Afib HTN Dysphagia sp GT Aortic dissection s/p repair 2017 S/p PPM Parkinson's Disease Schizophrenia Anxiety COPD Chronic resp failure s/p trach Hx of tracheal bleeding [place] resident ([facility]) VRE and MRSA colonized Plan: Cont to monitor off abx Pt needs emergent transfer out to [facility] for CT surgery evaluation given thoracic aortic aneurysm noted on CT imaging per Surgery recs, primary MD aware Trend Hg, GIB 03/21 SP daptomycin #12, Avycaz #16 for VRE and MDR Kleb bacteremia 2/1 SP tobramycin IV #10 for resistant UTI 03/10/20 SP edson #4 empiric, vanco #9 01/31 SP angelo/inh tobra #10 for pna 01/23 SP vanco IV #10 given CONS/GPC bacteremia 01/16 SP Zosyn #2 01/14 SP dex 10mg in ED 12/10 SP IV Gentamycin #10 12/07 SP Meropenem #10 12/01 SP IV Vancomycin #5 11/28 Sp Cefepime #2 and IV Gentamycin x1 Monitor CBC/CMP Monitor temp curve, hemodynamics Monitor resp status D/w RN Thank you for this consult. [facility] will continue to follow. Subjective Allergies: Coded Allergies: No Known Allergies (Unverified , 10/10/17) AF NAD on vent 40% PEEP 5 WBC 6.0 Objective Last 24 Hour Vital Signs Date Time Temp Pulse Resp B/P (MAP) Pulse Ox O2 Delivery O2 Flow Rate FiO2 03/26/20 05:34 67 155/73 03/26/20 04:00 40 03/26/20 04:00 67 03/26/20 04:00 98.1 68 19 155/73 (100) 97 03/26/20 04:00 Mechanical Ventilator 03/26/20 01:29 76 19 40 03/26/20 00:00 97.9 64 18 160/77 (104) 100 03/26/20 00:00 40 03/26/20 00:00 63 03/26/20 00:00 Mechanical Ventilator 03/25/20 21:23 62 127/87 03/25/20 20:00 Mechanical Ventilator 03/25/20 20:00 98.2 62 16 127/87 (100) 99 03/25/20 20:00 98.2 62 20 127/87 (100) 99 03/25/20 20:00 Mechanical Ventilator 03/25/20 20:00 40 03/25/20 20:00 60 03/25/20 18:58 66 16 40 03/25/20 16:00 97.9 65 20 141/68 (92) 98 03/25/20 16:00 Mechanical Ventilator 03/25/20 16:00 40 03/25/20 16:00 63 03/25/20 15:38 62 17 40 03/25/20 14:15 61 146/62 03/25/20 12:00 97.9 70 22 141/62 (88) 95 03/25/20 12:00 40 03/25/20 12:00 Mechanical Ventilator 03/25/20 11:30 57 03/25/20 10:36 71 18 40 03/25/20 08:35 70 18 40 Height (Feet): 5 Height (Inches): 3.00 Weight (Pounds): 128 Gen: NAD HEENT: NCAT, trach Pulm: BL chest rise on vent Abd: Soft, NTND, +PEG Ext: No c/c/e Skin: No visible rashes Neuro: Awake, minimally interactive Lines: R chest Permacath dressing c/d/i Laboratory Tests Test 03/26/20 03:20 White Blood Count 6.0 K/UL (4.8-10.8) Red Blood Count 2.91 M/UL (4.20-5.40) L Hemoglobin 8.8 G/DL (12.0-16.0) L Hematocrit 26.0 % (37.0-47.0) L Mean Corpuscular Volume 89 FL (80-99) Mean Corpuscular Hemoglobin 30.2 PG (27.0-31.0) Mean Corpuscular Hemoglobin Concent 33.8 G/DL (32.0-36.0) Red Cell Distribution Width 14.3 % (11.6-14.8) Platelet Count 125 K/UL (150-450) L Mean Platelet Volume 8.1 FL (6.5-10.1) Neutrophils (%) (Auto) 78.3 % (45.0-75.0) H Lymphocytes (%) (Auto) 17.0 % (20.0-45.0) L Monocytes (%) (Auto) 4.1 % (1.0-10.0) Eosinophils (%) (Auto) 0.2 % (0.0-3.0) Basophils (%) (Auto) 0.4 % (0.0-2.0) Sodium Level 137 MMOL/L (136-145) Potassium Level 3.9 MMOL/L (3.5-5.1) Chloride Level 99 MMOL/L (98-107) Carbon Dioxide Level 30 MMOL/L (21-32) Anion Gap 8 mmol/L (5-15) Blood Urea Nitrogen 73 mg/dL (7-18) H Creatinine 2.2 MG/DL (0.55-1.30) H Estimat Glomerular Filtration Rate 23.9 mL/min (>60) Glucose Level 110 MG/DL (74-106) H Calcium Level 7.1 MG/DL (8.5-10.1) L Phosphorus Level 2.3 MG/DL (2.5-4.9) L Magnesium Level 2.0 MG/DL (1.8-2.4) Total Bilirubin 0.6 MG/DL (0.2-1.0) Aspartate Amino Transf (AST/SGOT) 41 U/L (15-37) H Alanine Aminotransferase (ALT/SGPT) 21 U/L (12-78) Alkaline Phosphatase 184 U/L (46-116) H C-Reactive Protein, Quantitative 13.8 mg/dL (0.00-0.90) H Pro-B-Type Natriuretic Peptide > 68106 pg/mL (0-125) H Total Protein 5.1 G/DL (6.4-8.2) L Albumin 1.2 G/DL (3.4-5.0) L Globulin 3.9 g/dL Albumin/Globulin Ratio 0.3 (1.0-2.7) L Current Medications Medications (Trade) Dose Ordered Sig/Penny Route PRN Reason Start Time Stop Time Status Last Admin Dose Admin Acetaminophen (Tylenol) 650 mg Q6H PRN GT Mild Pain (Pain Scale 1-3) 03/02/20 22:30 04/01/20 22:29 03/18/20 11:14 Acetaminophen (Tylenol) 650 mg Q6H PRN GT Temp >100.5 03/03/20 03:00 04/01/20 22:29 03/23/20 21:49 Aspirin (ASA) 81 mg DAILY GT 03/07/20 09:00 04/21/20 08:59 03/25/20 09:28 Carvedilol (Coreg) 6.25 mg EVERY 8 HOURS GT 03/20/20 22:00 04/13/20 20:59 03/26/20 05:34 Chlorhexidine Gluconate (Ling-Hex 2%) 1 applic DAILY@1999 TOPIC 03/03/20 20:00 06/01/20 19:59 03/25/20 20:08 Dextrose (Dextrose 50%) 25 ml Q30M PRN IV Hypoglycemia 03/15/20 07:30 06/13/20 07:29 Dextrose (Dextrose 50%) 50 ml Q30M PRN IV Hypoglycemia 03/15/20 07:30 06/13/20 07:29 Hydralazine HCl (Apresoline) 25 mg Q6H PRN GT For High Blood Pressure 03/02/20 22:00 05/31/20 21:59 Hydrocortisone (Anusol HC) 25 mg Q12HR RECTAL 03/23/20 21:00 06/21/20 08:59 03/25/20 20:08 Loperamide HCl (Imodium) 2 mg Q6H PRN GT Diarrhea 03/06/20 12:45 04/05/20 12:44 03/06/20 13:01 Metoclopramide HCl (Reglan) 5 mg Q8HR IVP 03/04/20 11:45 04/03/20 11:44 03/26/20 05:34 Midodrine (Pro-Amatine) 10 mg EVERY 8 HOURS GT 03/17/20 22:00 06/01/20 12:59 03/24/20 13:02 Pantoprazole (Protonix) 40 mg EVERY 12 HOURS IVP 03/04/20 21:00 04/02/20 20:59 03/25/20 20:08 Polyethylene Glycol (Miralax) 17 gm BEDTIME PRN GT Constipation 03/02/20 22:00 04/01/20 21:59 Sodium Hypochlorite (Dakin's Quarter Strength) 1 applic DAILY TOPIC 03/04/20 09:00 04/03/20 08:59 03/25/20 09:29 Sucralfate (Carafate) 1 gm EVERY 6 HOURS GT 03/17/20 18:00 06/09/20 08:59 03/26/20 05:33 Tramadol HCl (Ultram) 50 mg EVERY 8 HOURS GT 03/19/20 14:00 03/26/20 13:59 03/26/20 05:34 Zinc Oxide (Zinc Oxide) 1 applic Q8HR TOPIC 03/25/20 22:00 06/22/20 17:59 03/26/20 05:35 Ro Pack M.D. Mar 26, 2020 08:04
[2020-03-26] MEDS: Pantoprazole Inj IVP SCH ×2 (08:38→20:04)
[2020-03-26] MEDS: Aspirin Baby 81mg GT SCH (08:38)
[2020-03-26] MEDS: Dakin's 0.125% Soln (Quarter Strength) 16oz TOPIC SCH (08:38)
[2020-03-26] MEDS: Hydrocortisone 25mg supp RECTAL SCH ×2 (08:38→20:04)
--- NOTE | 2020-03-26 11:00 | NUR ---
NURSE NOTES: Initial assessment done. Morning medications administer per order. Not in acute distress. G-Tube is acute and patent, with small leakage. Oral care and suctioning done. Will continue to monitor pt. Will continue with the plan of care.
--- NOTE | 2020-03-26 11:08 | Pulmonology Progress Note ---
Subjective ROS Limited/Unobtainable: Yes Interval Events: none major reported per nursing Constitutional: Reports: fever, other - resolved HEENT: Repors: no symptoms Respiratory: Reports: no symptoms Cardiovascular: Reports: no symptoms Gastrointestinal/Abdominal: Reports: diarrhea Allergies: Coded Allergies: No Known Allergies (Unverified , 10/10/17) All Systems: reviewed and negative except above Objective Last 24 Hour Vital Signs Date Time Temp Pulse Resp B/P (MAP) Pulse Ox O2 Delivery O2 Flow Rate FiO2 03/26/20 08:00 40 03/26/20 08:00 Mechanical Ventilator 03/26/20 08:00 98.1 77 18 165/83 (110) 98 03/26/20 07:33 75 03/26/20 05:34 67 155/73 03/26/20 04:00 40 03/26/20 04:00 67 03/26/20 04:00 98.1 68 19 155/73 (100) 97 03/26/20 04:00 Mechanical Ventilator 03/26/20 01:29 76 19 40 03/26/20 00:00 97.9 64 18 160/77 (104) 100 03/26/20 00:00 40 03/26/20 00:00 63 03/26/20 00:00 Mechanical Ventilator 03/25/20 21:23 62 127/87 03/25/20 20:00 Mechanical Ventilator 03/25/20 20:00 98.2 62 16 127/87 (100) 99 03/25/20 20:00 98.2 62 20 127/87 (100) 99 03/25/20 20:00 Mechanical Ventilator 03/25/20 20:00 40 03/25/20 20:00 60 03/25/20 18:58 66 16 40 03/25/20 16:00 97.9 65 20 141/68 (92) 98 03/25/20 16:00 Mechanical Ventilator 03/25/20 16:00 40 03/25/20 16:00 63 03/25/20 15:38 62 17 40 03/25/20 14:15 61 146/62 03/25/20 12:00 97.9 70 22 141/62 (88) 95 03/25/20 12:00 40 03/25/20 12:00 Mechanical Ventilator 03/25/20 11:30 57 Intake and Output 03/25/20 03/26/20 19:00 07:00 Intake Total 540 ml 475 ml Balance 540 ml 475 ml Intake Free Water 120 ml 90 ml Tube Feeding 420 ml 385 ml # Voids 1 1 General Appearance: no acute distress HEENT: atraumatic Respiratory: lungs clear Cardiovascular: normal rate, regular rhythm Extremities: other - edema bilateral Laboratory Tests 03/26/20 03:20: White Blood Count 6.0, Red Blood Count 2.91L, Hemoglobin 8.8L, Hematocrit 26.0L, Mean Corpuscular Volume 89, Mean Corpuscular Hemoglobin 30.2, Mean Corpuscular Hemoglobin Concent 33.8, Red Cell Distribution Width 14.3, Platelet Count 125L, Mean Platelet Volume 8.1, Neutrophils (%) (Auto) 78.3H, Lymphocytes (%) (Auto) 17.0L, Monocytes (%) (Auto) 4.1, Eosinophils (%) (Auto) 0.2, Basophils (%) (Auto) 0.4, Sodium Level 137, Potassium Level 3.9, Chloride Level 99, Carbon Dioxide Level 30, Anion Gap 8, Blood Urea Nitrogen 73H, Creatinine 2.2H, Estimat Glomerular Filtration Rate 23.9, Glucose Level 110H, Calcium Level 7.1L, Phosphorus Level 2.3L, Magnesium Level 2.0, Total Bilirubin 0.6, Aspartate Amino Transf (AST/SGOT) 41H, Alanine Aminotransferase (ALT/SGPT) 21, Alkaline Phosphatase 184H, C-Reactive Protein, Quantitative 13.8H, Pro-B-Type Natriuretic Peptide > 84102U, Total Protein 5.1L, Albumin 1.2L, Globulin 3.9, Albumin/Globulin Ratio 0.3L Current Medications Medications (Trade) Dose Ordered Sig/Penny Route PRN Reason Start Time Stop Time Status Last Admin Dose Admin Acetaminophen (Tylenol) 650 mg Q6H PRN GT Mild Pain (Pain Scale 1-3) 03/02/20 22:30 04/01/20 22:29 03/18/20 11:14 Acetaminophen (Tylenol) 650 mg Q6H PRN GT Temp >100.5 03/03/20 03:00 04/01/20 22:29 03/23/20 21:49 Aspirin (ASA) 81 mg DAILY GT 03/07/20 09:00 04/21/20 08:59 03/26/20 08:38 Carvedilol (Coreg) 6.25 mg EVERY 8 HOURS GT 03/20/20 22:00 04/13/20 20:59 03/26/20 05:34 Chlorhexidine Gluconate (Ling-Hex 2%) 1 applic DAILY@1999 TOPIC 03/03/20 20:00 06/01/20 19:59 03/25/20 20:08 Dextrose (Dextrose 50%) 25 ml Q30M PRN IV Hypoglycemia 03/15/20 07:30 06/13/20 07:29 Dextrose (Dextrose 50%) 50 ml Q30M PRN IV Hypoglycemia 03/15/20 07:30 06/13/20 07:29 Hydralazine HCl (Apresoline) 25 mg Q6H PRN GT For High Blood Pressure 03/02/20 22:00 05/31/20 21:59 Hydrocortisone (Anusol HC) 25 mg Q12HR RECTAL 03/23/20 21:00 06/21/20 08:59 03/26/20 08:38 Loperamide HCl (Imodium) 2 mg Q6H PRN GT Diarrhea 03/06/20 12:45 04/05/20 12:44 03/06/20 13:01 Metoclopramide HCl (Reglan) 5 mg Q8HR IVP 03/04/20 11:45 04/03/20 11:44 03/26/20 05:34 Midodrine (Pro-Amatine) 10 mg EVERY 8 HOURS GT 03/17/20 22:00 06/01/20 12:59 03/24/20 13:02 Pantoprazole (Protonix) 40 mg EVERY 12 HOURS IVP 03/04/20 21:00 04/02/20 20:59 03/26/20 08:38 Polyethylene Glycol (Miralax) 17 gm BEDTIME PRN GT Constipation 03/02/20 22:00 04/01/20 21:59 Sodium Hypochlorite (Dakin's Quarter Strength) 1 applic DAILY TOPIC 03/04/20 09:00 04/03/20 08:59 03/26/20 08:38 Sucralfate (Carafate) 1 gm EVERY 6 HOURS GT 03/17/20 18:00 06/09/20 08:59 03/26/20 05:33 Tramadol HCl (Ultram) 50 mg EVERY 8 HOURS GT 03/19/20 14:00 03/26/20 13:59 03/26/20 05:34 Zinc Oxide (Zinc Oxide) 1 applic Q8HR TOPIC 03/25/20 22:00 06/22/20 17:59 03/26/20 05:35 Assessment/Plan Assessment/Plan 1. Chronic respiratory failure. - CT chest/abd/pelv: improving pleural effusion 2. Mechanical ventilation. - current setting at AC 14, Vt 500, FiO2 40%, PEEP 5 saturating well - continue current setting - suction secretions as needed 3. Chronic tracheostomy. 4. Chronic G-tube. 5. Anemia. - s/p transfusion - stool OB positive (03/02, 03/03, 03/22) - off anticoags 6. Renal failure. 7. Leukocytosis and sepsis. - WBC now resolved 8. Sepsis UTI 9. Gram positive cocci bacteremia - f/u BCx negative for growth 10. COVID-19 negative 11. Diarrhea - C. diff neg 12. Hypoglycemia - resolved 13. Bradycardia - no urgent indication for pacemaker per cardio 14. Gastric ulcer - on PPI -No active bleeding - GI following 15. Pleural effusion - small; insufficient volume for safe thoracentesis 16. thoracic aortic aneurysm - noted on CT imaging - pt needs emergent transfer out to [facility][1] for CT surgery evaluation, primary MD aware - Pt might not be a candidate for TAA repair 17. Ascites - s/p paracentesis (03/18), 2.3L out 18. DVT ppx - on SCD -Venous duplex ultrasound of legs negative for DVT (03/25) The care of this patient was discussed with my supervising physician Time spent for this encounter was approximately 31 minutes Cruz Wilson Mar 26, 2020 11:08
[2020-03-26 12:00] VITALS: BP_SYST 150; BP_SYST 163; BP_DIAS 66; BP_DIAS 80
--- NOTE | 2020-03-26 12:22 | Nephrology Progress Note ---
Assessment/Plan Problem List: (1) Renal failure (ARF), acute on chronic (2) Anemia (3) Hyponatremia (4) Respiratory failure Assessment (1) JAVIER (acute kidney injury) (2) Renal failure (ARF), acute on chronic (3) Feeding by G-tube (4) Tracheostomy in place (5) Electrolyte imbalance, hyponatremia (6) Anemia, severe (7) Respiratory failure, acute and chronic (8) history of elevated lipase, pancreatitis (9) Elevated troponin I (10) Sepsis Plan March 26: Last dialyzed March 24. Labs reviewed. Low phosphorus replaced. Continue to monitor renal parameters. Dialysis as needed. March 25: Dialyzed yesterday. Labs reviewed. Low phosphorus replaced. Continue per current management. Hemoglobin higher. March 24: Labs reviewed. Due for dialysis today. Continue per current management. Hemoglobin lower. Transfusion per wet plant operator. March 23: Labs reviewed. Dialyzed yesterday. Next dialysis tomorrow. Anemia management per wet plant operator. March 22: Labs reviewed. Due for dialysis today. Discussed with RN. Agree with discontinuation of the Norman catheter. Hemoglobin lower. Transfusion per wet plant operator. March 21: Labs reviewed. Will arrange for dialysis tomorrow. Continue per consultants. Will hold phosphorus binders at this time. March 20: Labs reviewed. Patient was dialyzed yesterday. Electrolyte abnormalities corrected. Continue per current management. March 19: Due for dialysis today. Abnormal labs noted. All will be corrected after dialysis. March 18: Labs reviewed. Will dialyze tomorrow. Patient being transfused today. Patient due for abdominal paracentesis. We will keep the Norman in. Continue to monitor renal parameters and dialyze as needed. March 17: No CHEM panel done today. CBC reviewed. Hemoglobin is lowering. Dialyzed yesterday. Will check lab tomorrow. Continue per consultants. March 16: Labs reviewed. Due for dialysis today. Hemoglobin 10.2 today. Continue to monitor renal parameters. March 15: Labs reviewed. Dialyzed March 13. Due for dialysis March 16. Hemoglobin lower. 1 unit of packed RBCs ordered. Per orders. March 14: No labs drawn today. Dialyzed yesterday. Full code. Will check lab tomorrow. Dialysis as needed. March 13: Labs reviewed. Due for dialysis today. Patient remains full code. Continue per current management. March 12: Labs reviewed. Dialyzed yesterday. Due for dialysis tomorrow. Discussed with RN. Patient full code. Continue per current management. March 11: Labs reviewed. Dialyzed this morning. Phosphorus binders dose adjusted. Continue per consultants. Continue to monitor renal parameters. CT: Extensive thoracoabdominal aortic dissection March 10: Labs reviewed. Will order dialysis tomorrow. Phosphorus binders added. Continue per consultants. March 09: No chemistry panel done today. Patient dialyzed yesterday. On dextrose 10% for hypoglycemia. We will check labs tomorrow. Dialysis as needed. March 08: Labs reviewed. Will order dialysis today. Blood sugar low. D10 50 cc an hour started. Continue as is. March 07: Labs reviewed. Dialyzed March 05 and March 06. Continue to monitor renal parameters and hemoglobin. Abnormal electrolytes addressed. IV fluids stopped. Per orders. March 06: Labs reviewed. Dialyzed yesterday. Will reorder dialysis for today. Continue to monitor renal parameters. Hemoglobin 8.4. Patient full code. March 05: Labs reviewed. Patient did not receive dialysis until this morning. Proceed with dialysis. Continue to monitor renal parameters and hemoglobin and hematocrit. March 04: Labs reviewed. Hemoglobin lower. Patient actively bleeding. Was not dialyzed yesterday. Due for GI endoscopy. Continue fluid challenge. Transfusion as needed. Dialysis today. March 03: Labs reviewed. Dialysis ordered. Blood pressure medication all discontinued due to hypotensive state. Albumin bolus given. Continue to monitor renal parameters. Medication list reviewed. Midodrin for low blood pressure ordered Subjective ROS Limited/Unobtainable: Yes Objective Objective Last 24 Hour Vital Signs Date Time Temp Pulse Resp B/P (MAP) Pulse Ox O2 Delivery O2 Flow Rate FiO2 03/26/20 11:00 74 23 40 03/26/20 08:00 40 03/26/20 08:00 Mechanical Ventilator 03/26/20 08:00 98.1 77 18 165/83 (110) 98 03/26/20 07:33 75 03/26/20 07:20 72 21 40 03/26/20 05:34 67 155/73 03/26/20 04:00 40 03/26/20 04:00 67 03/26/20 04:00 98.1 68 19 155/73 (100) 97 03/26/20 04:00 Mechanical Ventilator 03/26/20 01:29 76 19 40 03/26/20 00:00 97.9 64 18 160/77 (104) 100 03/26/20 00:00 40 03/26/20 00:00 63 03/26/20 00:00 Mechanical Ventilator 03/25/20 21:23 62 127/87 03/25/20 20:00 Mechanical Ventilator 03/25/20 20:00 98.2 62 16 127/87 (100) 99 03/25/20 20:00 98.2 62 20 127/87 (100) 99 03/25/20 20:00 Mechanical Ventilator 03/25/20 20:00 40 03/25/20 20:00 60 03/25/20 18:58 66 16 40 03/25/20 16:00 97.9 65 20 141/68 (92) 98 03/25/20 16:00 Mechanical Ventilator 03/25/20 16:00 40 03/25/20 16:00 63 03/25/20 15:38 62 17 40 03/25/20 14:15 61 146/62 Intake and Output 03/25/20 03/26/20 19:00 07:00 Intake Total 540 ml 475 ml Balance 540 ml 475 ml Intake Free Water 120 ml 90 ml Tube Feeding 420 ml 385 ml # Voids 1 1 Current Medications Medications (Trade) Dose Ordered Sig/Penny Route PRN Reason Start Time Stop Time Status Last Admin Dose Admin Acetaminophen (Tylenol) 650 mg Q6H PRN GT Mild Pain (Pain Scale 1-3) 03/02/20 22:30 04/01/20 22:29 03/18/20 11:14 Acetaminophen (Tylenol) 650 mg Q6H PRN GT Temp >100.5 03/03/20 03:00 04/01/20 22:29 03/23/20 21:49 Aspirin (ASA) 81 mg DAILY GT 03/07/20 09:00 04/21/20 08:59 03/26/20 08:38 Carvedilol (Coreg) 6.25 mg EVERY 8 HOURS GT 03/20/20 22:00 04/13/20 20:59 03/26/20 13:33 Chlorhexidine Gluconate (Ling-Hex 2%) 1 applic DAILY@1999 TOPIC 03/03/20 20:00 06/01/20 19:59 03/25/20 20:08 Dextrose (Dextrose 50%) 25 ml Q30M PRN IV Hypoglycemia 03/15/20 07:30 06/13/20 07:29 Dextrose (Dextrose 50%) 50 ml Q30M PRN IV Hypoglycemia 03/15/20 07:30 06/13/20 07:29 Hydralazine HCl (Apresoline) 25 mg Q6H PRN GT For High Blood Pressure 03/02/20 22:00 05/31/20 21:59 Hydrocortisone (Anusol HC) 25 mg Q12HR RECTAL 03/23/20 21:00 06/21/20 08:59 03/26/20 08:38 Loperamide HCl (Imodium) 2 mg Q6H PRN GT Diarrhea 03/06/20 12:45 04/05/20 12:44 03/06/20 13:01 Metoclopramide HCl (Reglan) 5 mg Q8HR IVP 03/04/20 11:45 04/03/20 11:44 03/26/20 13:34 Midodrine (Pro-Amatine) 10 mg EVERY 8 HOURS GT 03/17/20 22:00 06/01/20 12:59 03/24/20 13:02 Pantoprazole (Protonix) 40 mg EVERY 12 HOURS IVP 03/04/20 21:00 04/02/20 20:59 03/26/20 08:38 Polyethylene Glycol (Miralax) 17 gm BEDTIME PRN GT Constipation 03/02/20 22:00 04/01/20 21:59 Sodium Hypochlorite (Dakin's Quarter Strength) 1 applic DAILY TOPIC 03/04/20 09:00 04/03/20 08:59 03/26/20 08:38 Sucralfate (Carafate) 1 gm EVERY 6 HOURS GT 03/17/20 18:00 06/09/20 08:59 03/26/20 11:53 Zinc Oxide (Zinc Oxide) 1 applic Q8HR TOPIC 03/25/20 22:00 06/22/20 17:59 03/26/20 13:36 Laboratory Tests 03/26/20 03:20: White Blood Count 6.0, Red Blood Count 2.91L, Hemoglobin 8.8L, Hematocrit 26.0L, Mean Corpuscular Volume 89, Mean Corpuscular Hemoglobin 30.2, Mean Corpuscular Hemoglobin Concent 33.8, Red Cell Distribution Width 14.3, Platelet Count 125L, Mean Platelet Volume 8.1, Neutrophils (%) (Auto) 78.3H, Lymphocytes (%) (Auto) 17.0L, Monocytes (%) (Auto) 4.1, Eosinophils (%) (Auto) 0.2, Basophils (%) (Auto) 0.4, Sodium Level 137, Potassium Level 3.9, Chloride Level 99, Carbon Dioxide Level 30, Anion Gap 8, Blood Urea Nitrogen 73H, Creatinine 2.2H, Estimat Glomerular Filtration Rate 23.9, Glucose Level 110H, Calcium Level 7.1L, Phosphorus Level 2.3L, Magnesium Level 2.0, Total Bilirubin 0.6, Aspartate Amino Transf (AST/SGOT) 41H, Alanine Aminotransferase (ALT/SGPT) 21, Alkaline Phosphatase 184H, C-Reactive Protein, Quantitative 13.8H, Pro-B-Type Natriuretic Peptide > 10784G, Total Protein 5.1L, Albumin 1.2L, Globulin 3.9, Albumin/Globulin Ratio 0.3L Height (Feet): 5 Height (Inches): 3.00 Weight (Pounds): 128 General Appearance: no apparent distress Cardiovascular: normal rate Respiratory/Chest: decreased breath sounds Abdomen: soft Johnny Houston MD Mar 26, 2020 12:22
--- NOTE | 2020-03-26 12:34 | General Progress Note ---
Subjective ROS Limited/Unobtainable: No Allergies: Coded Allergies: No Known Allergies (Unverified , 10/10/17) Objective Last 24 Hour Vital Signs Date Time Temp Pulse Resp B/P (MAP) Pulse Ox O2 Delivery O2 Flow Rate FiO2 03/26/20 11:00 74 23 40 03/26/20 08:00 40 03/26/20 08:00 Mechanical Ventilator 03/26/20 08:00 98.1 77 18 165/83 (110) 98 03/26/20 07:33 75 03/26/20 07:20 72 21 40 03/26/20 05:34 67 155/73 03/26/20 04:00 40 03/26/20 04:00 67 03/26/20 04:00 98.1 68 19 155/73 (100) 97 03/26/20 04:00 Mechanical Ventilator 03/26/20 01:29 76 19 40 03/26/20 00:00 97.9 64 18 160/77 (104) 100 03/26/20 00:00 40 03/26/20 00:00 63 03/26/20 00:00 Mechanical Ventilator 03/25/20 21:23 62 127/87 03/25/20 20:00 Mechanical Ventilator 03/25/20 20:00 98.2 62 16 127/87 (100) 99 03/25/20 20:00 98.2 62 20 127/87 (100) 99 03/25/20 20:00 Mechanical Ventilator 03/25/20 20:00 40 03/25/20 20:00 60 03/25/20 18:58 66 16 40 03/25/20 16:00 97.9 65 20 141/68 (92) 98 03/25/20 16:00 Mechanical Ventilator 03/25/20 16:00 40 03/25/20 16:00 63 03/25/20 15:38 62 17 40 03/25/20 14:15 61 146/62 Intake and Output 03/25/20 03/26/20 19:00 07:00 Intake Total 540 ml 475 ml Balance 540 ml 475 ml Intake Free Water 120 ml 90 ml Tube Feeding 420 ml 385 ml # Voids 1 1 Laboratory Tests 03/26/20 03:20: White Blood Count 6.0, Red Blood Count 2.91L, Hemoglobin 8.8L, Hematocrit 26.0L, Mean Corpuscular Volume 89, Mean Corpuscular Hemoglobin 30.2, Mean Corpuscular Hemoglobin Concent 33.8, Red Cell Distribution Width 14.3, Platelet Count 125L, Mean Platelet Volume 8.1, Neutrophils (%) (Auto) 78.3H, Lymphocytes (%) (Auto) 17.0L, Monocytes (%) (Auto) 4.1, Eosinophils (%) (Auto) 0.2, Basophils (%) (Auto) 0.4, Sodium Level 137, Potassium Level 3.9, Chloride Level 99, Carbon Dioxide Level 30, Anion Gap 8, Blood Urea Nitrogen 73H, Creatinine 2.2H, Estimat Glomerular Filtration Rate 23.9, Glucose Level 110H, Calcium Level 7.1L, Phosphorus Level 2.3L, Magnesium Level 2.0, Total Bilirubin 0.6, Aspartate Amino Transf (AST/SGOT) 41H, Alanine Aminotransferase (ALT/SGPT) 21, Alkaline Phosphatase 184H, C-Reactive Protein, Quantitative 13.8H, Pro-B-Type Natriuretic Peptide > 96860L, Total Protein 5.1L, Albumin 1.2L, Globulin 3.9, Albumin/Globulin Ratio 0.3L Height (Feet): 5 Height (Inches): 3.00 Weight (Pounds): 128 General Appearance: no apparent distress EENT: normal ENT inspection Neck: supple Cardiovascular: normal rate Respiratory/Chest: decreased breath sounds Abdomen: hypoactive bowel sounds Extremities: non-tender Assessment/Plan Problem List: (1) Hx of CABG ICD Codes: Z95.1 - Presence of aortocoronary bypass graft SNOMED: 906628309, 682527110 (2) History of tracheostomy ICD Codes: Z98.890 - Other specified postprocedural states SNOMED: 389815357, 893298874 (3) PEG (percutaneous endoscopic gastrostomy) status ICD Codes: Z93.1 - Gastrostomy status SNOMED: 084494608, 120062783 (4) Renal failure ICD Codes: N19 - Unspecified kidney failure SNOMED: 92002571, 354104785 (5) Severe anemia ICD Codes: D64.9 - Anemia, unspecified SNOMED: 235764813 Assessment/Plan: s/p EGD gastric ulcer on ppi and carafate fu H&H GTF s/p EGD GT tightened at the bedside repeat labs will Inder Madrid MD Mar 26, 2020 12:34
--- NOTE | 2020-03-26 12:49 | NUR ---
CASE MANAGEMENT:REVIEW 03/26/20 SI: SEPSIS. [facility]PC BACTEREMIA. AORTIC DISSECTION ANEMIA...S/P 14 UNITS PRBC'S. TRACH/VENT/GTUBE. ESRD/HD 97.6 73 21 163/80 98% ON VENT SUPPORT W/40% FIO2 H/H-8.8/26.0 PLT-125 BUN+73 CR+2.2 crp+13.8 [id number] IS: ANUSOL CO Q12 COREG GT Q8HRS ULTRAM GT Q8HRS MIDODRINE GT Q8HRS CARAFATE GT Q6HRS ASA GT QD IV PROTONIX Q12 IV REGLAN Q8HRS : STEP DOWN UNIT DCP: FROM [place] [facility]: CARAFATE FOR GASTRIC ULCER MONITOR H/H
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
--- NOTE | 2020-03-26 13:21 | NUR ---
RD ASSESSMENT & RECOMMENDATIONS SEE CARE ACTIVITY FOR COMPLETE ASSESSMENT DAILY ESTIMATED NEEDS: Needs based on Critical care, wound, renal dysfunction 59.5 kg 27-22 kcals/kg 7357-7275 total kcals W/ HD (1.5-2.0) g protein/kg 89-119 g total protein Fluid per MD NUTRITION DIAGNOSIS: * Swallowing difficulty R/T dysphagia, respiratory status as evidenced by vent dep via trach, GT Dep. * Increase kcal and pro needs r/t wound healing, renal dysfunction as evidenced by h/o stage 4 sacral wound, and HD. CURRENT TF: Nepro @ 35ml/hr x 24 hrs ENTERAL NUTRITION RECOMMENDATIONS: Nepro @40ml/hr x 24 hrs + Prosource 1pkt BID to provide 960ml, 1728kcal, 78g+22g prot, 779ml free water * INCREASE goal rate to 40ml/hr. * Add Prosource 1pkt BID to better meet increased protein needs (additional 11g prot/each) * Water flush per MD/ HOB over 30 degrees ADDITIONAL RECOMMENDATIONS: * Calibrated bed scale, wts fluctuatinkg-> 68kg->76.5kg now * Monitor for HD continuity * WC eval-> w/ TF orders add FRANKLIN in 4oz H2O BID via GT Vit C per nephrology, add Nephrovite 1 tab daily. * Monitor BGs closely for hypoglycemia On Bedside BG checks * Monitor lytes: phos low now, rec repletion
[2020-03-26 16:00] VITALS: BP 150/83
[2020-03-26] MEDS ORDERED: Sodium Phosphate 15 MM in NS 275 ML IVPB ONE (16:00)
--- NOTE | 2020-03-26 16:50 | NUR ---
INSURANCE CLINICALS/REVIEW FAXED TO [facility] T: [phone] F: [phone]
--- NOTE | 2020-03-26 17:00 | NUR ---
NURSE NOTES: Pt is given complete sponge bath, gown and linens change. Wounds cleaned and dressing changed. Turned and repositioned. Oral care and suctioning done. Pt. tolerated well. VSS. Tolerating vent setting. Will continue to monitor pt. Will continue with the plan of care.
--- NOTE | 2020-03-26 19:00 | NUR ---
NURSE HAND-OFF REPORT: Important Events on Shift:None Patient Status: full code Diet: Nepro @ 35cc/hr Pending Orders: N Pending Results/Labs:N Pending MD notification:N Latest Vital Signs: Temperature 97.9 , Pulse 85 , B/P 150 /83 , Respiratory Rate 23 , O2 SAT 96 , Mechanical Ventilator, O2 Flow Rate . Vital Sign Comment: stable EKG Rhythm: Sinus Rhythm Rhythm change?: N MD Notified?: N -Dr Екатерина HATFIELD Response: No New Orders Received Latest [place] Fall Score: 60 Fall Risk: High Risk Safety Measures: Call light Within Reach, Bed Alarm Zone 2, Side Rails Side Rails x3, Bed position Low and Locked. Fall Precautions: Yellow Socks Report given to ERASMO Ruiz.
--- NOTE | 2020-03-26 19:17 | NUR ---
RESPIRATORY NOTE: Received pt on current settings from previous RT. Pt on AC 14, 500VT, 40%, PEEP +5 w/ a cuffed Shiley 7 XLT tube, secured by trach ties. Pt is awake/disoriented. B/S sara rhonchi, sxn moderate to large amounts of thick/thin/frothy, velasco-yellow secretions. Vent plugged into red outlet, alarms on & audible. Ambubag at bedside. Pt in no apparent distress at this time. Will continue plan of care.
--- NOTE | 2020-03-26 19:26 | NUR ---
NURSE NOTES: Report received from ERASMO Mcgovern. Observed pt lying in the bed, awake, able to answer with nodding. SR noted. Trach to vent, AC 14, 500, 40%,PEEP 5. GT intact, small amount of leaking around stoma noted, covered with dressing, running Nepro at 35cc/hr. IV on L FA 22G, SL. R U subclavian perma cath noted. Bed in the lowest position. Side rails up x3. Bed alarm on. Will continue to monitor.
--- NOTE | 2020-03-26 19:29 | NUR ---
NURSE NOTES: at the bedside, okay to renew prn pain meds.
--- NOTE | 2020-03-26 19:30 | General Progress Note ---
Subjective Constitutional: Reports: no symptoms HEENT: Reports: no symptoms Cardiovascular: Reports: no symptoms Respiratory: Reports: no symptoms Gastrointestinal/Abdominal: Reports: no symptoms Genitourinary: Reports: no symptoms Neurologic/Psychiatric: Reports: depressed, other - Tearful would like to go home Endocrine: Reports: no symptoms Hematologic/Lymphatic: Reports: no symptoms Allergies: Coded Allergies: No Known Allergies (Unverified , 10/10/17) Objective Last 24 Hour Vital Signs Date Time Temp Pulse Resp B/P (MAP) Pulse Ox O2 Delivery O2 Flow Rate FiO2 03/26/20 19:13 96 23 40 03/26/20 16:00 97.9 85 23 150/83 (105) 96 03/26/20 16:00 40 03/26/20 16:00 Mechanical Ventilator 03/26/20 16:00 70 03/26/20 15:10 75 22 40 03/26/20 13:33 76 152/66 03/26/20 12:00 40 03/26/20 12:00 86 03/26/20 12:00 Mechanical Ventilator 03/26/20 12:00 97.6 73 21 150/66 (94) 98 03/26/20 11:00 74 23 40 03/26/20 08:00 40 03/26/20 08:00 Mechanical Ventilator 03/26/20 08:00 98.1 77 18 165/83 (110) 98 03/26/20 07:33 75 03/26/20 07:20 72 21 40 03/26/20 05:34 67 155/73 03/26/20 04:00 40 03/26/20 04:00 67 03/26/20 04:00 98.1 68 19 155/73 (100) 97 03/26/20 04:00 Mechanical Ventilator 03/26/20 01:29 76 19 40 03/26/20 00:00 97.9 64 18 160/77 (104) 100 03/26/20 00:00 40 03/26/20 00:00 63 03/26/20 00:00 Mechanical Ventilator 03/25/20 21:23 62 127/87 03/25/20 20:00 Mechanical Ventilator 03/25/20 20:00 98.2 62 16 127/87 (100) 99 03/25/20 20:00 98.2 62 20 127/87 (100) 99 03/25/20 20:00 Mechanical Ventilator 03/25/20 20:00 40 03/25/20 20:00 60 Intake and Output 03/25/20 03/26/20 19:00 07:00 Intake Total 540 ml 510 ml Balance 540 ml 510 ml Intake Free Water 120 ml 90 ml Tube Feeding 420 ml 420 ml # Voids 1 1 Laboratory Tests 03/26/20 03:20: White Blood Count 6.0, Red Blood Count 2.91L, Hemoglobin 8.8L, Hematocrit 26.0L, Mean Corpuscular Volume 89, Mean Corpuscular Hemoglobin 30.2, Mean Corpuscular Hemoglobin Concent 33.8, Red Cell Distribution Width 14.3, Platelet Count 125L, Mean Platelet Volume 8.1, Neutrophils (%) (Auto) 78.3H, Lymphocytes (%) (Auto) 17.0L, Monocytes (%) (Auto) 4.1, Eosinophils (%) (Auto) 0.2, Basophils (%) (Auto) 0.4, Sodium Level 137, Potassium Level 3.9, Chloride Level 99, Carbon Dioxide Level 30, Anion Gap 8, Blood Urea Nitrogen 73H, Creatinine 2.2H, Estimat Glomerular Filtration Rate 23.9, Glucose Level 110H, Calcium Level 7.1L, Phosphorus Level 2.3L, Magnesium Level 2.0, Total Bilirubin 0.6, Aspartate Amino Transf (AST/SGOT) 41H, Alanine Aminotransferase (ALT/SGPT) 21, Alkaline Phosphatase 184H, C-Reactive Protein, Quantitative 13.8H, Pro-B-Type Natriuretic Peptide > 60941F, Total Protein 5.1L, Albumin 1.2L, Globulin 3.9, Albumin/Globulin Ratio 0.3L Height (Feet): 5 Height (Inches): 3.00 Weight (Pounds): 128 General Appearance: alert, severe distress, thin EENT: normal ENT inspection Neck: non-tender, normal alignment, supple, normal inspection Cardiovascular: normal rate, regular rhythm, no gallop/murmur, no JVD Respiratory/Chest: lungs clear, normal breath sounds, no respiratory distress, no accessory muscle use Abdomen: normal bowel sounds, non tender, soft, no organomegaly, no mass Extremities: non-tender Skin: warm/dry Assessment/Plan Status Narrative Patient is awake alert afebrile hemodynamically stable but tearful and cannot control healthy is she wished to go home mood in which she cannot explain to her the plan of treatment as patient needs frequent dialysis she will not be she would not be able to go back to [facility] and for the time being she has been refused by multiple cardiovascular unit. Laboratory tests will be done in Lucas Dong,Lucas HATFIELD Mar 26, 2020 19:30
[2020-03-26 20:00] VITALS: BP 155/74
[2020-03-26] MEDS: Dyna-Hex 2% Top Sol 2oz TOPIC SCH (20:04)
[2020-03-26] MEDS: traMADol 50mg tab ORAL PRN (22:10)
--- NOTE | 2020-03-26 23:30 | NUR ---
NURSE NOTES: No acute change noted. SR noted. Tolerating current vent setting. Tolerating feeding, no residual. Reposition done. Oral care given. Will continue to monitor.
[2020-03-27] VITALS: BP 151/77
[2020-03-27] MEDS: Sucralfate 1gm tab GT SCH ×4 (00:15→17:27)
[2020-03-27] MEDS: Hydromorphone 0.5mg/0.5ml inj IVP PRN ×4 (01:25→22:25)
[2020-03-27 04:00] VITALS: BP 152/72
--- NOTE | 2020-03-27 04:46 | NUR ---
NURSE NOTES: No acute change noted. Bed bath given. Reposition done. Oral care given. Sacral dressing changed. BM x1 noted, brown soft stool noted. Will continue to monitor.
[2020-03-27 05:05] LABS: BASOPHILS % (AUTO) 0.5 % (0.0-2.0); HEMATOCRIT 25.7 % (37.0-47.0); HEMOGLOBIN 8.7 G/DL (12.0-16.0); LYMPHOCYTES % (AUTO) 15.7 % (20.0-45.0); MEAN CORPUSCULAR VOLUME 90 FL (80-99); MONOCYTES % (AUTO) 5.1 % (1.0-10.0); NEUTROPHILS % (AUTO) 78.7 % (45.0-75.0); PLATELET COUNT 135 K/UL (150-450); RED BLOOD COUNT 2.85 M/UL (4.20-5.40); RED CELL DISTRIBUTION WIDTH 14.2 % (11.6-14.8); WHITE BLOOD COUNT 6.1 K/UL (4.8-10.8)
[2020-03-27] MEDS: Midodrine 10mg tab GT SCH ×3 (05:12→21:21)
[2020-03-27 05:16] LABS: ALBUMIN 1.2 G/DL (3.4-5.0); ALBUMIN/GLOBULIN RATIO 0.3 (1.0-2.7); BILIRUBIN,TOTAL 0.6 MG/DL (0.2-1.0); CALCIUM 7.1 MG/DL (8.5-10.1); CREATININE 2.5 MG/DL (0.55-1.30); POTASSIUM 3.8 MMOL/L (3.5-5.1)
[2020-03-27] MEDS: Carvedilol 6.25mg Tab GT SCH ×3 (05:27→21:21)
[2020-03-27] MEDS: Metoclopramide 10mg/2ml Inj IVP SCH ×3 (05:27→21:18)
[2020-03-27] MEDS: traMADol 50mg tab ORAL PRN ×3 (05:28→22:37)
[2020-03-27 05:29] LABS: PHOSPHORUS 2.6 MG/DL (2.5-4.9)
[2020-03-27] MEDS: Zinc Oxide Oint 2oz TOPIC SCH ×3 (05:29→21:23)
--- NOTE | 2020-03-27 06:11 | General Progress Note ---
Subjective ROS Limited/Unobtainable: No Allergies: Coded Allergies: No Known Allergies (Unverified , 10/10/17) Objective Last 24 Hour Vital Signs Date Time Temp Pulse Resp B/P (MAP) Pulse Ox O2 Delivery O2 Flow Rate FiO2 03/27/20 05:27 74 152/72 03/27/20 05:23 74 15 40 03/27/20 04:00 98.1 74 22 152/72 (98) 98 03/27/20 04:00 73 03/27/20 04:00 Mechanical Ventilator 03/27/20 04:00 40 03/27/20 03:15 80 18 40 03/27/20 01:28 81 30 40 03/27/20 00:00 40 03/27/20 00:00 74 03/27/20 00:00 97.9 74 24 151/77 (101) 100 03/27/20 00:00 Mechanical Ventilator 03/26/20 23:17 76 19 40 03/26/20 22:11 77 155/74 03/26/20 21:06 77 16 40 03/26/20 20:00 97.7 85 24 155/74 (101) 97 03/26/20 20:00 Mechanical Ventilator 03/26/20 20:00 40 03/26/20 19:48 88 03/26/20 19:13 96 23 40 03/26/20 16:00 97.9 85 23 150/83 (105) 96 03/26/20 16:00 40 03/26/20 16:00 Mechanical Ventilator 03/26/20 16:00 70 03/26/20 15:10 75 22 40 03/26/20 13:33 76 152/66 03/26/20 12:00 40 03/26/20 12:00 86 03/26/20 12:00 Mechanical Ventilator 03/26/20 12:00 97.6 73 21 150/66 (94) 98 03/26/20 11:00 74 23 40 03/26/20 08:00 40 03/26/20 08:00 Mechanical Ventilator 03/26/20 08:00 98.1 77 18 165/83 (110) 98 03/26/20 07:33 75 03/26/20 07:20 72 21 40 Intake and Output 03/26/20 03/27/20 19:00 07:00 Intake Total 690.546 ml 375.273 ml Balance 690.546 ml 375.273 ml Intake Free Water 130 ml 60 ml IV Total 140.546 ml 70.273 ml Tube Feeding 420 ml 245 ml # Bowel Movements 1 Laboratory Tests 03/27/20 04:05: White Blood Count 6.1, Red Blood Count 2.85L, Hemoglobin 8.7L, Hematocrit 25.7L, Mean Corpuscular Volume 90, Mean Corpuscular Hemoglobin 30.6, Mean Corpuscular Hemoglobin Concent 33.9, Red Cell Distribution Width 14.2, Platelet Count 135L, Mean Platelet Volume 7.4, Neutrophils (%) (Auto) 78.7H, Lymphocytes (%) (Auto) 15.7L, Monocytes (%) (Auto) 5.1, Eosinophils (%) (Auto) 0.0, Basophils (%) (Auto) 0.5, Sodium Level 137, Potassium Level 3.8, Chloride Level 100, Carbon Dioxide Level 30, Anion Gap 7, Blood Urea Nitrogen 83H, Creatinine 2.5H, Estimat Glomerular Filtration Rate 20.6, Glucose Level 100, Calcium Level 7.1L, Phosphorus Level 2.6, Magnesium Level 1.9, Total Bilirubin 0.6, Aspartate Amino Transf (AST/SGOT) 35, Alanine Aminotransferase (ALT/SGPT) 19, Alkaline Phosphatase 167H, Total Protein 5.2L, Albumin 1.2L, Globulin 4.0, Albumin/Globulin Ratio 0.3L Height (Feet): 5 Height (Inches): 3.00 Weight (Pounds): 128 General Appearance: no apparent distress EENT: normal ENT inspection Neck: supple Respiratory/Chest: decreased breath sounds Abdomen: hypoactive bowel sounds Extremities: non-tender Assessment/Plan Problem List: (1) Hx of CABG ICD Codes: Z95.1 - Presence of aortocoronary bypass graft SNOMED: 614351170, 222021794 (2) History of tracheostomy ICD Codes: Z98.890 - Other specified postprocedural states SNOMED: 104640778, 853626943 (3) PEG (percutaneous endoscopic gastrostomy) status ICD Codes: Z93.1 - Gastrostomy status SNOMED: 900908593, 956449977 (4) Renal failure ICD Codes: N19 - Unspecified kidney failure SNOMED: 37651762, 981645052 (5) Severe anemia ICD Codes: D64.9 - Anemia, unspecified SNOMED: 576668486 Assessment/Plan: s/p EGD gastric ulcer on ppi and carafate fu H&H GTF s/p EGD GT tightened at the bedside repeat labs will fu Inder Mccauley MD Mar 27, 2020 06:11
--- NOTE | 2020-03-27 06:17 | Hematology/Onc Progress Note ---
Assessment/Plan Assessment/Plan # Leukocytosis, now with likely bacteremia, as per ID care --> Cxr: : Large left abiola consolidation/effusion --> wbc 30-->40-->27->30->29-->35->32-->28-->21->10.2-->6.6 --> ABX angelo/vanc-->tobra/edson/vanc-->dapto/ceftazadine --> smear reviewed --> ID recs are noted # Anemia of chronic disease due to underlying chronic medical issues, multifactorial --> Anemia workup has been reviewed, cw acd --> No evidence of hemolysis is noted, peripheral smear has been reviewed. --> Hgb goal >7. Transfuse prn. --> Epogen required in prior --> Medications have been reviewed --> low threshold for gi evaluation in case has occult + --> hgb 1.9-->5-->7.1-->8.8-->8.1->7.5-> 8.2-->6.8-->9.2--> 8.4->7.7-->7.1-->8.8->8.7 --> 1 unit prbc1/, 2 units 01/15, 03/02, 03/18, 03/24 --> gi eval as needed # Elevated tumor markers, cea and ca 19.9 --> reviewed prior 01/27/20 cat scan a/p --> no masses noted, hold off further extensive w/u # Thrombocytopenia likely reactive v medication induced --> plt 200-->129->91-->86->100->78-->86-->87-->125->135 --> transfuse as needed --> r/o dic, has been ruled out --> anticoag as needed # Coagulopathy with inr 1.5 --> consider vit k/ffp as needed preprocedure --> labs noted # Aortic dissection as seen on Ct ==> when stable, consider transfer hloc # JAVIER initially >2 --> on ivfs --> per renal # Elevated d-dimer, likely infection related --> venous duplex prior neg --> in prior neg # Dysphagia s/p peg --> as per gi # Thoracic aortic dissection --> s/p repair early 2017 # Chronic Resp failure -> s/p trach/vent # Psychiatric history on ativan/haldol # [place] # Dvt ppx --> scds The timing of this note does not necessarily reflect the time of the patient was seen. Greatly appreciate consultation. Subjective HEENT: Denies: no symptoms, eye pain, blurred vision, tearing, double vision, ear pain, ear discharge, nose pain, nose congestion, throat pain, throat swelling, mouth pain, mouth swelling, other Respiratory: Denies: no symptoms, cough, shortness of breath, SOB with excertion, SOB at rest, sputum, wheezing, other Gastrointestinal/Abdominal: Denies: no symptoms, abdomen distended, abdominal pain, black stools, tarry stools, blood in stool, constipated, diarrhea, difficulty swallowing, nausea, poor appetite, poor fluid intake, rectal bleeding, vomiting, other Genitourinary: Denies: no symptoms, burning, discharge, frequency, flank pain, hematuria, incontinence, pain, urgency, other Neurologic/Psychiatric: Denies: no symptoms, anxiety, depressed, emotional problems, headache, numbness, paresthesia, pre-existing deficit, seizure, tingling, tremors, weakness, other Endocrine: Denies: no symptoms, excessive sweating, flushing, intolerance to cold, intolerance to heat, increased hunger, increased thirst, increased urine, unexplained weight gain, unexplained weight loss, other Hematologic/Lymphatic: Denies: no symptoms, anemia, easy bleeding, easy bruising, adenopathy, other Allergies: Coded Allergies: No Known Allergies (Unverified , 10/10/17) Subjective 03/04 for 1 unit transfusion this am as hgb remains low, wbc better 03/05 egd was done did show large nonbleeding gastric ulcer, high tumor markers 03/06 nv, with davis overnight, bp remains stable, with occult + stool, roman Rn 03/09 nv, remains stable, on vanc/tobra/edson, meds reviewed, no bleeding 03/10 nv, on vent, no bleeding, receiving abx, no night sweats 03/11 nv, dw surgeon and pcp, with aortic dissection to transfer [facility] when stable 03/12 nv, labs reviewed, wbc 21, hgb 7.5, otherwise is comfortable 03/13 nv, labs noted, no bleeding, wbc 13, hgb improved, meds reviewed 03/15 nv, meds reviewed, labs noted, no bleeding, on vent 03/16 nv/tv, peg, meds noted, hgb remains stable, improved to 10 2/ s/p egd, with gastric ulceration noted, hgb stable 03/18 labs noted, hgb 6.8, to get 1 unit prbc, meds reviewed 03/19 hgb 9.2, plt 78, no hemoptysis, is comfortable 03/20 labs reviewed, meds noted, no bleeding, dw rn 03/22 wound treatment, vent, with gtube, labs reviewed, dw rn 03/23 labs reviewed, meds noted, no bleeding, with gt 03/24 large bm overnight that was bloody, hgb 7.1, dw rn 03/25 labs pending this am, comfortable, nsr, meds noted 03/26 nv, vent, with gt, labs reviewed, hgb 8.8 03/27 nv, vent, labs reviewed, with gt, hgb stable Objective Objective Current Medications Medications (Trade) Dose Ordered Sig/Penny Route PRN Reason Start Time Stop Time Status Last Admin Dose Admin Acetaminophen (Tylenol) 650 mg Q6H PRN GT Mild Pain (Pain Scale 1-3) 03/02/20 22:30 04/01/20 22:29 03/18/20 11:14 Acetaminophen (Tylenol) 650 mg Q6H PRN GT Temp >100.5 03/03/20 03:00 04/01/20 22:29 03/23/20 21:49 Aspirin (ASA) 81 mg DAILY GT 03/07/20 09:00 04/21/20 08:59 03/26/20 08:38 Carvedilol (Coreg) 6.25 mg EVERY 8 HOURS GT 03/20/20 22:00 04/13/20 20:59 03/27/20 05:27 Chlorhexidine Gluconate (Ling-Hex 2%) 1 applic DAILY@1999 TOPIC 03/03/20 20:00 06/01/20 19:59 03/26/20 20:04 Dextrose (Dextrose 50%) 25 ml Q30M PRN IV Hypoglycemia 03/15/20 07:30 06/13/20 07:29 Dextrose (Dextrose 50%) 50 ml Q30M PRN IV Hypoglycemia 03/15/20 07:30 06/13/20 07:29 Hydralazine HCl (Apresoline) 25 mg Q6H PRN GT For High Blood Pressure 03/02/20 22:00 05/31/20 21:59 Hydrocortisone (Anusol HC) 25 mg Q12HR RECTAL 03/23/20 21:00 06/21/20 08:59 03/26/20 20:04 Hydromorphone HCl (Dilaudid) 0.5 mg Q4H PRN IVP For Pain 03/26/20 19:30 04/02/20 19:29 03/27/20 01:25 Loperamide HCl (Imodium) 2 mg Q6H PRN GT Diarrhea 03/06/20 12:45 04/05/20 12:44 03/06/20 13:01 Metoclopramide HCl (Reglan) 5 mg Q8HR IVP 03/04/20 11:45 04/03/20 11:44 03/27/20 05:27 Midodrine (Pro-Amatine) 10 mg EVERY 8 HOURS GT 03/17/20 22:00 06/01/20 12:59 03/24/20 13:02 Pantoprazole (Protonix) 40 mg EVERY 12 HOURS IVP 03/04/20 21:00 04/02/20 20:59 03/26/20 20:04 Polyethylene Glycol (Miralax) 17 gm BEDTIME PRN GT Constipation 03/02/20 22:00 04/01/20 21:59 Sodium Hypochlorite (Dakin's Quarter Strength) 1 applic DAILY TOPIC 03/04/20 09:00 04/03/20 08:59 03/26/20 08:38 Sucralfate (Carafate) 1 gm EVERY 6 HOURS GT 03/17/20 18:00 06/09/20 08:59 03/27/20 05:28 Tramadol HCl (Ultram) 50 mg Q6H PRN ORAL Moderate Pain (Pain Scale 4-6) 03/26/20 19:30 04/02/20 19:29 03/27/20 05:28 Zinc Oxide (Zinc Oxide) 1 applic Q8HR TOPIC 03/25/20 22:00 06/22/20 17:59 03/27/20 05:29 Last 24 Hour Vital Signs Date Time Temp Pulse Resp B/P (MAP) Pulse Ox O2 Delivery O2 Flow Rate FiO2 03/27/20 05:27 74 152/72 03/27/20 05:23 74 15 40 03/27/20 04:00 98.1 74 22 152/72 (98) 98 03/27/20 04:00 73 03/27/20 04:00 Mechanical Ventilator 03/27/20 04:00 40 03/27/20 03:15 80 18 40 03/27/20 01:28 81 30 40 03/27/20 00:00 40 03/27/20 00:00 74 03/27/20 00:00 97.9 74 24 151/77 (101) 100 03/27/20 00:00 Mechanical Ventilator 03/26/20 23:17 76 19 40 03/26/20 22:11 77 155/74 03/26/20 21:06 77 16 40 03/26/20 20:00 97.7 85 24 155/74 (101) 97 03/26/20 20:00 Mechanical Ventilator 03/26/20 20:00 40 03/26/20 19:48 88 03/26/20 19:13 96 23 40 03/26/20 16:00 97.9 85 23 150/83 (105) 96 03/26/20 16:00 40 03/26/20 16:00 Mechanical Ventilator 03/26/20 16:00 70 03/26/20 15:10 75 22 40 03/26/20 13:33 76 152/66 03/26/20 12:00 40 03/26/20 12:00 86 03/26/20 12:00 Mechanical Ventilator 03/26/20 12:00 97.6 73 21 150/66 (94) 98 03/26/20 11:00 74 23 40 03/26/20 08:00 40 03/26/20 08:00 Mechanical Ventilator 03/26/20 08:00 98.1 77 18 165/83 (110) 98 03/26/20 07:33 75 03/26/20 07:20 72 21 40 03/26/20 05:34 67 155/73 03/26/20 04:00 40 03/26/20 04:00 67 03/26/20 04:00 98.1 68 19 155/73 (100) 97 03/26/20 04:00 Mechanical Ventilator 03/26/20 01:29 76 19 40 03/26/20 00:00 97.9 64 18 160/77 (104) 100 03/26/20 00:00 40 03/26/20 00:00 63 03/26/20 00:00 Mechanical Ventilator 03/25/20 21:23 62 127/87 03/25/20 20:00 Mechanical Ventilator 03/25/20 20:00 98.2 62 16 127/87 (100) 99 03/25/20 20:00 98.2 62 20 127/87 (100) 99 03/25/20 20:00 Mechanical Ventilator 03/25/20 20:00 40 03/25/20 20:00 60 03/25/20 18:58 66 16 40 03/25/20 16:00 97.9 65 20 141/68 (92) 98 03/25/20 16:00 Mechanical Ventilator 03/25/20 16:00 40 03/25/20 16:00 63 03/25/20 15:38 62 17 40 03/25/20 14:15 61 146/62 03/25/20 12:00 97.9 70 22 141/62 (88) 95 03/25/20 12:00 40 03/25/20 12:00 Mechanical Ventilator 03/25/20 11:30 57 03/25/20 10:36 71 18 40 03/25/20 08:35 70 18 40 03/25/20 08:00 Mechanical Ventilator 03/25/20 08:00 40 03/25/20 08:00 97.3 61 16 136/53 (80) 100 03/25/20 07:25 58 03/25/20 06:40 72 20 40 Intake and Output 03/26/20 03/27/20 19:00 07:00 Intake Total 690.546 ml 545.273 ml Balance 690.546 ml 545.273 ml Intake Free Water 130 ml 90 ml IV Total 140.546 ml 70.273 ml Tube Feeding 420 ml 385 ml # Bowel Movements 1 1 Labs Test 03/25/20 03:03 03/26/20 03:20 03/27/20 04:05 White Blood Count 5.8 K/UL (4.8-10.8) 6.0 K/UL (4.8-10.8) 6.1 K/UL (4.8-10.8) Red Blood Count 3.08 M/UL (4.20-5.40) 2.91 M/UL (4.20-5.40) 2.85 M/UL (4.20-5.40) Hemoglobin 9.3 G/DL (12.0-16.0) 8.8 G/DL (12.0-16.0) 8.7 G/DL (12.0-16.0) Hematocrit 27.5 % (37.0-47.0) 26.0 % (37.0-47.0) 25.7 % (37.0-47.0) Mean Corpuscular Volume 89 FL (80-99) 89 FL (80-99) 90 FL (80-99) Mean Corpuscular Hemoglobin 30.3 PG (27.0-31.0) 30.2 PG (27.0-31.0) 30.6 PG (27.0-31.0) Mean Corpuscular Hemoglobin Concent 33.9 G/DL (32.0-36.0) 33.8 G/DL (32.0-36.0) 33.9 G/DL (32.0-36.0) Red Cell Distribution Width 14.4 % (11.6-14.8) 14.3 % (11.6-14.8) 14.2 % (11.6-14.8) Platelet Count 129 K/UL (150-450) 125 K/UL (150-450) 135 K/UL (150-450) Mean Platelet Volume 7.7 FL (6.5-10.1) 8.1 FL (6.5-10.1) 7.4 FL (6.5-10.1) Neutrophils (%) (Auto) 76.3 % (45.0-75.0) 78.3 % (45.0-75.0) 78.7 % (45.0-75.0) Lymphocytes (%) (Auto) 17.8 % (20.0-45.0) 17.0 % (20.0-45.0) 15.7 % (20.0-45.0) Monocytes (%) (Auto) 5.5 % (1.0-10.0) 4.1 % (1.0-10.0) 5.1 % (1.0-10.0) Eosinophils (%) (Auto) 0.0 % (0.0-3.0) 0.2 % (0.0-3.0) 0.0 % (0.0-3.0) Basophils (%) (Auto) 0.3 % (0.0-2.0) 0.4 % (0.0-2.0) 0.5 % (0.0-2.0) Sodium Level 135 MMOL/L (136-145) 137 MMOL/L (136-145) 137 MMOL/L (136-145) Potassium Level 4.0 MMOL/L (3.5-5.1) 3.9 MMOL/L (3.5-5.1) 3.8 MMOL/L (3.5-5.1) Chloride Level 97 MMOL/L (98-107) 99 MMOL/L (98-107) 100 MMOL/L (98-107) Carbon Dioxide Level 29 MMOL/L (21-32) 30 MMOL/L (21-32) 30 MMOL/L (21-32) Anion Gap 9 mmol/L (5-15) 8 mmol/L (5-15) 7 mmol/L (5-15) Blood Urea Nitrogen 63 mg/dL (7-18) 73 mg/dL (7-18) 83 mg/dL (7-18) Creatinine 2.0 MG/DL (0.55-1.30) 2.2 MG/DL (0.55-1.30) 2.5 MG/DL (0.55-1.30) Estimat Glomerular Filtration Rate 26.7 mL/min (>60) 23.9 mL/min (>60) 20.6 mL/min (>60) Glucose Level 76 MG/DL (74-106) 110 MG/DL (74-106) 100 MG/DL (74-106) Calcium Level 7.2 MG/DL (8.5-10.1) 7.1 MG/DL (8.5-10.1) 7.1 MG/DL (8.5-10.1) Phosphorus Level 1.3 MG/DL (2.5-4.9) 2.3 MG/DL (2.5-4.9) 2.6 MG/DL (2.5-4.9) Total Bilirubin 0.7 MG/DL (0.2-1.0) 0.6 MG/DL (0.2-1.0) 0.6 MG/DL (0.2-1.0) Aspartate Amino Transf (AST/SGOT) 49 U/L (15-37) 41 U/L (15-37) 35 U/L (15-37) Alanine Aminotransferase (ALT/SGPT) 23 U/L (12-78) 21 U/L (12-78) 19 U/L (12-78) Alkaline Phosphatase 191 U/L (46-116) 184 U/L (46-116) 167 U/L (46-116) Total Protein 5.3 G/DL (6.4-8.2) 5.1 G/DL (6.4-8.2) 5.2 G/DL (6.4-8.2) Albumin 1.2 G/DL (3.4-5.0) 1.2 G/DL (3.4-5.0) 1.2 G/DL (3.4-5.0) Globulin 4.1 g/dL 3.9 g/dL 4.0 g/dL Albumin/Globulin Ratio 0.3 (1.0-2.7) 0.3 (1.0-2.7) 0.3 (1.0-2.7) Amylase Level 79 U/L (25-115) Lipase 418 U/L (73-393) Magnesium Level 2.0 MG/DL (1.8-2.4) 1.9 MG/DL (1.8-2.4) C-Reactive Protein, Quantitative 13.8 mg/dL (0.00-0.90) Pro-B-Type Natriuretic Peptide > 69875 pg/mL (0-125) Height (Feet): 5 Height (Inches): 3.00 Weight (Pounds): 128 Objective Physical Exam: Vitals: reviewed General: NAD HEENT: nc, at Neck: supple ++trach/vent Chest: clear breath sounds bilaterally Cardiovascular: RRR, no s3, s4 Abdomen: soft, nontender, nd +gtube Extremities: no cce, normal range of motion Neuro: alert Evan Muhammad MD Mar 27, 2020 06:17
--- NOTE | 2020-03-27 07:16 | NUR ---
NURSE HAND-OFF REPORT: Important Events on Shift: No acute change noted. Patient Status: Tolerating vent. Tolerating feeding. Diet: Nepro at 35cc/hr. Pending Orders: [] Pending Results/Labs:[] Pending MD notification:[] Latest Vital Signs: Temperature 98.1 , Pulse 74 , B/P 152 /72 , Respiratory Rate 15 , O2 SAT 98 , Mechanical Ventilator, O2 Flow Rate . Vital Sign Comment: [] EKG Rhythm: Sinus Rhythm Rhythm change?: N Notified?: N -Dr Екатерина HATFIELD Response: No New Orders Received Latest [place] Fall Score: 60 Fall Risk: High Risk Safety Measures: Call light Within Reach, Bed Alarm Zone 2, Side Rails Side Rails x3, Bed position Low and Locked. Fall Precautions: Yellow Socks Report given to ERASMO Lu.
--- NOTE | 2020-03-27 07:30 | NUR ---
NURSE NOTES: Received pt from RN Joseph, pt is awake and confused, pt has trach to ventilator AC 14 TV 500 PEEP 5 FIO2 40%, Pt is on continues heart monitoring. pt has g tube in place is working well. pt has intact iv access LFA 22G SL. All needs attended, bed is locked and is in the lowest position, call light within easy reach. will continue to monitor.
--- NOTE | 2020-03-27 07:41 | Infectious Diseases Prog Note ---
Assessment/Plan 49yo F with: MDR Kleb pna bacteremia AMS Anemia to 1.9 on admission 03/02 Leukocytosis to 40, improving GPC bacteremia UTI Pneumonia c/b mod-large R pleural effusion and small L pleural effusion - compressive atelectasis Hypotension 03/02 BCx 1/2 +Staph epi, 12 +Staph haemolyticus (m/l skin colonizers) UA+, UCx >100k P.stuartii (S-angelo) & CRE P.mirablis (R-polyB/colistin, S- tobramycin, per [facility] is "intrinsically resistant to Avycaz/Zerbaxa" not clear why to me and they are unable to elaborate more) COVID rapid neg, PCR neg CXR: Tracheostomy again demonstrated. Interim placement of a right jugular tunneled dialysis catheter. There is infiltrate and volume loss in the left lung, particularly in the perihilar region, suprahilar region, and base. Consolidation at the lung base is similar. The perihilar and suprahilar region consolidation is new. The right lung pleural space are clear. C.dif neg 03/03 BCx NTD 03/06 BCx 2/2 +MDR Kleb pna (arnett-R, including R-polyB, colistin), 02/14 +E.faecium VRE (R-amp, S-linezolid) 03/08 BCx NTD 03/09 CT CAP: Very limited exam, as described, due to massive anasarca. This could limit visualization of the discrete fluid collection such as an abscess. Extensive thoracoabdominal aortic dissection, as described above. Current flap begins just distal to the left subclavian artery origin; per report, there is history of surgical repair so there may have been surgical repair of the ascending thoracic aorta. Bilateral pleural effusions, slightly smaller than on earlier exams. Extensive atelectasis as a result. Extensive pulmonary par enchymal disease as detailed above. This may reflect pneumonia or pulmonary edema or both. Evidence of pulmonary arterial hypertension, with dilatation of the pulmonary artery. Considerable ascites fluid. 03/11 Chest US: Small right, trace left pleural effusions, insufficient for safe thoracentesis AF Sepsis Leukocytosis Hypoxia on vent Pneumonia c/b L pleural effusion (recurrent, prior determined to be transudative) - s/p thora 01/21, 1050cc removed Volume overload, BNP >35,0000, likely 2/2 progressive CKD --> ESRD ?Pancreatitis, Lipase >2000 Acute anemia to 5s CONS bacteremia, ?contaminant Aflutter w/ RVR 01/13 BCx 2/2 +S. epi COVID PCR neg Flu neg CXR: Large left pleural effusion. Bilateral interstitial and airspace infiltrates versus edema MRSA nares neg 01/16 BCx NTD 01/17 BCx /2 +Staph auricularis (skin colonizer) 01/18 Resp cx +MDR CRE PsA (S-gent, I-colistin, R-polyB) (Intermediate to Zerbaxa, Resistant to Avycaz) 01/18 C.dif neg 01/18 CXR: Similar opacification of the left hemithorax likely representing combination of pleural effusion with atelectasis versus pneumonia/edema. Decreased but persistent hazy opacity throughout the right lung may represent edema versus infectious/inflammatory process. 01/20 BCx NTD 01/21 L thora 1050 cc removed, cx NTD 01/25 Wound cx from Gtube site +CRE Kleb pna (arnett-R) and MDR PsA (colonizers) 01/26 CT A/P: Limited exam, due to severe diffuse anasarca. Ascites. Bilateral pleural effusions. Basilar pulmonary atelectatic changes and consolidation. Gastrostomy. Atrophic left kidney with a nephroureteral stents again demonstrated. Possible retrococcygeal decubitus changes. Correlate with clinical findings, consider MRI if there is concern for sacral osteomyelitis. Right hip intertrochanteric fracture, also previously demonstrated. Left femoral dialysis catheter. Nonspecific right lobe liver lesion is unchanged, not well- demonstrated. ctasia bordering on aneurysmal dilatation and possible chronic dissection of the distal thoracic aorta, also previously described. JAVIER on CKD On previous admission Sep-Oct 2019 required HD for short period Going to start HD this admission again R/o COVID 01/14 COVID PCR neg 12/29 neg at [facility] per report H/o UTI 10/15 u/a wbc 30-40, nit neg, leuk +3; ucx ESBL P. mirablis, ESBL M. morganii //20 u/a wbc tnct, nit neg, leuk +3; ucx >100k MDR P. stuarti (S Ceftriaxone, Meropenem) 8/25 u/a wbc tnct, nit neg, leuk ; ucx >100k VRE 10/15/19 u/a wbc tnct; ucx >100k ESBL P. stuarti (S ertapenem, aztreonam) H/o transudative pleural effusion 11/28 Sp Thora (w: 169, PMN: 2%, L: 49% , LDH: 57, prot 2.5); cx Neg H/o PNA 10/15/19 Resp cx ESBL P. mirabilis, MDR P.a. (S only to Gent) 09/22 Resp cx + MDR PsA (S-gent; I-colistin; R-levofloxacin, Zosyn, angelo) 09/16/19 Sp cx ESBL P. mirablis H/o PPM site (pocket) infection and pocket abscess 2ry to S. epi-11/2018, sp >6weeks IV vancomycin 11/27 SP ABBIE: no evidence for vegetation on any of the valves 11/26/18 SP PPM removal: OR findings:The fibrous capsule enclosing the generator was then opened and there was a [id number] amount of yellowish fluid drainage. The generator was then removed.Atrial and ventricular leads were detached. The necrotic tissue of the pocket was then removed and the pocket was flushed with an antibiotic solution. Capsule, wound tissue and lead tip cx: Neg 2d echo: no vegetation seen US chest: 4.6 x 3.4 x 0.9 cm hypoechoic/anechoic area overlying left chest pacemaker power pack. This could represent either a discrete fluid collection or a focal area of very edematous tissue. Infected fluid pocket also possible. 11/18 Bcx 3/4 S. epi; 11/20 Bcx neg; 11/24 Bcx Neg; 11/27 Bcx Neg CAD s/p CABG GERD/gastritis Afib HTN Dysphagia sp GT Aortic dissection s/p repair 2017 S/p PPM Parkinson's Disease Schizophrenia Anxiety COPD Chronic resp failure s/p trach Hx of tracheal bleeding [place] resident ([facility]) VRE and MRSA colonized Plan: Cont to monitor off abx Pt needs emergent transfer out to [facility] for CT surgery evaluation given thoracic aortic aneurysm noted on CT imaging per Surgery recs, primary MD aware Trend Hg, GIB 03/21 SP daptomycin #12, Avycaz #16 for VRE and MDR Kleb bacteremia 2/1 SP tobramycin IV #10 for resistant UTI 03/10/20 SP edson #4 empiric, vanco #9 01/31 SP angelo/inh tobra #10 for pna 01/23 SP vanco IV #10 given CONS/GPC bacteremia 01/16 SP Zosyn #2 01/14 SP dex 10mg in ED 12/10 SP IV Gentamycin #10 12/07 SP Meropenem #10 12/01 SP IV Vancomycin #5 11/28 Sp Cefepime #2 and IV Gentamycin x1 Monitor CBC/CMP Monitor temp curve, hemodynamics Monitor resp status D/w RN Thank you for this consult. [facility] will continue to follow. Subjective Allergies: Coded Allergies: No Known Allergies (Unverified , 10/10/17) AF NAD on vent 40% PEEP 5 WBC 6.1 Objective Last 24 Hour Vital Signs Date Time Temp Pulse Resp B/P (MAP) Pulse Ox O2 Delivery O2 Flow Rate FiO2 03/27/20 05:27 74 152/72 03/27/20 05:23 74 15 40 03/27/20 04:00 98.1 74 22 152/72 (98) 98 03/27/20 04:00 73 03/27/20 04:00 Mechanical Ventilator 03/27/20 04:00 40 03/27/20 03:15 80 18 40 03/27/20 01:28 81 30 40 03/27/20 00:00 40 03/27/20 00:00 74 03/27/20 00:00 97.9 74 24 151/77 (101) 100 03/27/20 00:00 Mechanical Ventilator 03/26/20 23:17 76 19 40 03/26/20 22:11 77 155/74 03/26/20 21:06 77 16 40 03/26/20 20:00 97.7 85 24 155/74 (101) 97 03/26/20 20:00 Mechanical Ventilator 03/26/20 20:00 40 03/26/20 19:48 88 03/26/20 19:13 96 23 40 03/26/20 16:00 97.9 85 23 150/83 (105) 96 03/26/20 16:00 40 03/26/20 16:00 Mechanical Ventilator 03/26/20 16:00 70 03/26/20 15:10 75 22 40 03/26/20 13:33 76 152/66 03/26/20 12:00 40 03/26/20 12:00 86 03/26/20 12:00 Mechanical Ventilator 03/26/20 12:00 97.6 73 21 150/66 (94) 98 03/26/20 11:00 74 23 40 03/26/20 08:00 40 03/26/20 08:00 Mechanical Ventilator 03/26/20 08:00 98.1 77 18 165/83 (110) 98 Height (Feet): 5 Height (Inches): 3.00 Weight (Pounds): 128 Gen: NAD HEENT: NCAT, trach Pulm: BL chest rise on vent Abd: Soft, NTND, +PEG Ext: No c/c/e Skin: No visible rashes Neuro: Awake, minimally interactive Lines: R chest Permacath dressing c/d/i Laboratory Tests Test 03/27/20 04:05 White Blood Count 6.1 K/UL (4.8-10.8) Red Blood Count 2.85 M/UL (4.20-5.40) L Hemoglobin 8.7 G/DL (12.0-16.0) L Hematocrit 25.7 % (37.0-47.0) L Mean Corpuscular Volume 90 FL (80-99) Mean Corpuscular Hemoglobin 30.6 PG (27.0-31.0) Mean Corpuscular Hemoglobin Concent 33.9 G/DL (32.0-36.0) Red Cell Distribution Width 14.2 % (11.6-14.8) Platelet Count 135 K/UL (150-450) L Mean Platelet Volume 7.4 FL (6.5-10.1) Neutrophils (%) (Auto) 78.7 % (45.0-75.0) H Lymphocytes (%) (Auto) 15.7 % (20.0-45.0) L Monocytes (%) (Auto) 5.1 % (1.0-10.0) Eosinophils (%) (Auto) 0.0 % (0.0-3.0) Basophils (%) (Auto) 0.5 % (0.0-2.0) Sodium Level 137 MMOL/L (136-145) Potassium Level 3.8 MMOL/L (3.5-5.1) Chloride Level 100 MMOL/L (98-107) Carbon Dioxide Level 30 MMOL/L (21-32) Anion Gap 7 mmol/L (5-15) Blood Urea Nitrogen 83 mg/dL (7-18) H Creatinine 2.5 MG/DL (0.55-1.30) H Estimat Glomerular Filtration Rate 20.6 mL/min (>60) Glucose Level 100 MG/DL (74-106) Calcium Level 7.1 MG/DL (8.5-10.1) L Phosphorus Level 2.6 MG/DL (2.5-4.9) Magnesium Level 1.9 MG/DL (1.8-2.4) Total Bilirubin 0.6 MG/DL (0.2-1.0) Aspartate Amino Transf (AST/SGOT) 35 U/L (15-37) Alanine Aminotransferase (ALT/SGPT) 19 U/L (12-78) Alkaline Phosphatase 167 U/L (46-116) H Total Protein 5.2 G/DL (6.4-8.2) L Albumin 1.2 G/DL (3.4-5.0) L Globulin 4.0 g/dL Albumin/Globulin Ratio 0.3 (1.0-2.7) L Current Medications Medications (Trade) Dose Ordered Sig/Penny Route PRN Reason Start Time Stop Time Status Last Admin Dose Admin Acetaminophen (Tylenol) 650 mg Q6H PRN GT Mild Pain (Pain Scale 1-3) 03/02/20 22:30 04/01/20 22:29 03/18/20 11:14 Acetaminophen (Tylenol) 650 mg Q6H PRN GT Temp >100.5 03/03/20 03:00 04/01/20 22:29 03/23/20 21:49 Aspirin (ASA) 81 mg DAILY GT 03/07/20 09:00 04/21/20 08:59 03/26/20 08:38 Carvedilol (Coreg) 6.25 mg EVERY 8 HOURS GT 03/20/20 22:00 04/13/20 20:59 03/27/20 05:27 Chlorhexidine Gluconate (Ling-Hex 2%) 1 applic DAILY@1999 TOPIC 03/03/20 20:00 06/01/20 19:59 03/26/20 20:04 Dextrose (Dextrose 50%) 25 ml Q30M PRN IV Hypoglycemia 03/15/20 07:30 06/13/20 07:29 Dextrose (Dextrose 50%) 50 ml Q30M PRN IV Hypoglycemia 03/15/20 07:30 06/13/20 07:29 Hydralazine HCl (Apresoline) 25 mg Q6H PRN GT For High Blood Pressure 03/02/20 22:00 05/31/20 21:59 Hydrocortisone (Anusol HC) 25 mg Q12HR RECTAL 03/23/20 21:00 06/21/20 08:59 03/26/20 20:04 Hydromorphone HCl (Dilaudid) 0.5 mg Q4H PRN IVP For Pain 03/26/20 19:30 04/02/20 19:29 03/27/20 01:25 Loperamide HCl (Imodium) 2 mg Q6H PRN GT Diarrhea 03/06/20 12:45 04/05/20 12:44 03/06/20 13:01 Metoclopramide HCl (Reglan) 5 mg Q8HR IVP 03/04/20 11:45 04/03/20 11:44 03/27/20 05:27 Midodrine (Pro-Amatine) 10 mg EVERY 8 HOURS GT 03/17/20 22:00 06/01/20 12:59 03/24/20 13:02 Pantoprazole (Protonix) 40 mg EVERY 12 HOURS IVP 03/04/20 21:00 04/02/20 20:59 03/26/20 20:04 Polyethylene Glycol (Miralax) 17 gm BEDTIME PRN GT Constipation 03/02/20 22:00 04/01/20 21:59 Sodium Hypochlorite (Dakin's Quarter Strength) 1 applic DAILY TOPIC 03/04/20 09:00 04/03/20 08:59 03/26/20 08:38 Sucralfate (Carafate) 1 gm EVERY 6 HOURS GT 03/17/20 18:00 06/09/20 08:59 03/27/20 05:28 Tramadol HCl (Ultram) 50 mg Q6H PRN ORAL Moderate Pain (Pain Scale 4-6) 03/26/20 19:30 04/02/20 19:29 03/27/20 05:28 Zinc Oxide (Zinc Oxide) 1 applic Q8HR TOPIC 03/25/20 22:00 06/22/20 17:59 03/27/20 05:29 Ro Pack M.D. Mar 27, 2020 07:41
[2020-03-27 08:00] VITALS: BP 156/60
--- NOTE | 2020-03-27 09:18 | NUR ---
CASE MANAGEMENT:REVIEW 03/27/20 SI: SEPSIS. KPC BACTEREMIA. AORTIC DISSECTION ANEMIA...S/P 14 UNITS PRBC'S. TRACH/VENT/GTUBE. ESRD/HD 96.0 63 25 156/60 98% ON VENT SUPPORT W/40% FIO2 H/H-8.7/25.7 PLT-135 BUN+83 CR+2.5 IS: COREG GT Q8HRS ULTRAM GT Q6HRS PRN MIDODRINE GT Q8HRS CARAFATE GT Q6HRS ASA GT QD IV PROTONIX Q12 IV REGLAN Q8HRS ANUSOL VA Q12 : STEP DOWN UNIT DCP: FROM [facility] PLAN: CARAFATE FOR GASTRIC ULCER MONITOR H/H
[2020-03-27] MEDS: Pantoprazole Inj IVP SCH ×2 (09:27→21:18)
[2020-03-27] MEDS: Dakin's 0.125% Soln (Quarter Strength) 16oz TOPIC SCH (09:27)
[2020-03-27] MEDS: Hydrocortisone 25mg supp RECTAL SCH ×2 (09:27→21:18)
[2020-03-27] MEDS: Aspirin Baby 81mg GT SCH (09:27)
--- NOTE | 2020-03-27 09:44 | Pulmonology Progress Note ---
Subjective ROS Limited/Unobtainable: No Interval Events: none major reported per nursing Constitutional: Reports: fever, other - resolved HEENT: Repors: no symptoms Respiratory: Reports: no symptoms Cardiovascular: Reports: no symptoms Gastrointestinal/Abdominal: Reports: diarrhea Allergies: Coded Allergies: No Known Allergies (Unverified , 10/10/17) All Systems: reviewed and negative except above Objective Last 24 Hour Vital Signs Date Time Temp Pulse Resp B/P (MAP) Pulse Ox O2 Delivery O2 Flow Rate FiO2 03/27/20 08:00 96.0 63 25 156/60 (92) 98 03/27/20 08:00 40 03/27/20 08:00 Mechanical Ventilator 03/27/20 07:10 67 15 40 03/27/20 05:27 74 152/72 03/27/20 05:23 74 15 40 03/27/20 04:00 98.1 74 22 152/72 (98) 98 03/27/20 04:00 73 03/27/20 04:00 Mechanical Ventilator 03/27/20 04:00 40 03/27/20 03:15 80 18 40 03/27/20 01:28 81 30 40 03/27/20 00:00 40 03/27/20 00:00 74 03/27/20 00:00 97.9 74 24 151/77 (101) 100 03/27/20 00:00 Mechanical Ventilator 03/26/20 23:17 76 19 40 03/26/20 22:11 77 155/74 03/26/20 21:06 77 16 40 03/26/20 20:00 97.7 85 24 155/74 (101) 97 03/26/20 20:00 Mechanical Ventilator 03/26/20 20:00 40 03/26/20 19:48 88 03/26/20 19:13 96 23 40 03/26/20 16:00 97.9 85 23 150/83 (105) 96 03/26/20 16:00 40 03/26/20 16:00 Mechanical Ventilator 03/26/20 16:00 70 03/26/20 15:10 75 22 40 03/26/20 13:33 76 152/66 03/26/20 12:00 40 03/26/20 12:00 86 03/26/20 12:00 Mechanical Ventilator 03/26/20 12:00 97.6 73 21 150/66 (94) 98 03/26/20 11:00 74 23 40 Intake and Output 03/26/20 03/27/20 19:00 07:00 Intake Total 690.546 ml 545.273 ml Balance 690.546 ml 545.273 ml Intake Free Water 130 ml 90 ml IV Total 140.546 ml 70.273 ml Tube Feeding 420 ml 385 ml # Bowel Movements 1 1 General Appearance: no acute distress HEENT: atraumatic Respiratory: lungs clear Cardiovascular: normal rate, regular rhythm Extremities: other - edema bilateral Laboratory Tests 03/27/20 04:05: White Blood Count 6.1, Red Blood Count 2.85L, Hemoglobin 8.7L, Hematocrit 25.7L, Mean Corpuscular Volume 90, Mean Corpuscular Hemoglobin 30.6, Mean Corpuscular Hemoglobin Concent 33.9, Red Cell Distribution Width 14.2, Platelet Count 135L, Mean Platelet Volume 7.4, Neutrophils (%) (Auto) 78.7H, Lymphocytes (%) (Auto) 15.7L, Monocytes (%) (Auto) 5.1, Eosinophils (%) (Auto) 0.0, Basophils (%) (Auto) 0.5, Sodium Level 137, Potassium Level 3.8, Chloride Level 100, Carbon Dioxide Level 30, Anion Gap 7, Blood Urea Nitrogen 83H, Creatinine 2.5H, Estimat Glomerular Filtration Rate 20.6, Glucose Level 100, Calcium Level 7.1L, Phosphorus Level 2.6, Magnesium Level 1.9, Total Bilirubin 0.6, Aspartate Amino Transf (AST/SGOT) 35, Alanine Aminotransferase (ALT/SGPT) 19, Alkaline Phosphatase 167H, Total Protein 5.2L, Albumin 1.2L, Globulin 4.0, Albumin/Globulin Ratio 0.3L Current Medications Medications (Trade) Dose Ordered Sig/Penny Route PRN Reason Start Time Stop Time Status Last Admin Dose Admin Acetaminophen (Tylenol) 650 mg Q6H PRN GT Mild Pain (Pain Scale 1-3) 03/02/20 22:30 04/01/20 22:29 03/18/20 11:14 Acetaminophen (Tylenol) 650 mg Q6H PRN GT Temp >100.5 03/03/20 03:00 04/01/20 22:29 03/23/20 21:49 Aspirin (ASA) 81 mg DAILY GT 03/07/20 09:00 04/21/20 08:59 03/27/20 09:27 Carvedilol (Coreg) 6.25 mg EVERY 8 HOURS GT 03/20/20 22:00 04/13/20 20:59 03/27/20 05:27 Chlorhexidine Gluconate (Ling-Hex 2%) 1 applic DAILY@1999 TOPIC 03/03/20 20:00 06/01/20 19:59 03/26/20 20:04 Dextrose (Dextrose 50%) 25 ml Q30M PRN IV Hypoglycemia 03/15/20 07:30 06/13/20 07:29 Dextrose (Dextrose 50%) 50 ml Q30M PRN IV Hypoglycemia 03/15/20 07:30 06/13/20 07:29 Hydralazine HCl (Apresoline) 25 mg Q6H PRN GT For High Blood Pressure 03/02/20 22:00 05/31/20 21:59 Hydrocortisone (Anusol HC) 25 mg Q12HR RECTAL 03/23/20 21:00 06/21/20 08:59 03/27/20 09:27 Hydromorphone HCl (Dilaudid) 0.5 mg Q4H PRN IVP For Pain 03/26/20 19:30 04/02/20 19:29 03/27/20 01:25 Loperamide HCl (Imodium) 2 mg Q6H PRN GT Diarrhea 03/06/20 12:45 04/05/20 12:44 03/06/20 13:01 Metoclopramide HCl (Reglan) 5 mg Q8HR IVP 03/04/20 11:45 04/03/20 11:44 03/27/20 05:27 Midodrine (Pro-Amatine) 10 mg EVERY 8 HOURS GT 03/17/20 22:00 06/01/20 12:59 03/24/20 13:02 Pantoprazole (Protonix) 40 mg EVERY 12 HOURS IVP 03/04/20 21:00 04/02/20 20:59 03/27/20 09:27 Polyethylene Glycol (Miralax) 17 gm BEDTIME PRN GT Constipation 03/02/20 22:00 04/01/20 21:59 Sodium Hypochlorite (Dakin's Quarter Strength) 1 applic DAILY TOPIC 03/04/20 09:00 04/03/20 08:59 03/27/20 09:27 Sucralfate (Carafate) 1 gm EVERY 6 HOURS GT 03/17/20 18:00 06/09/20 08:59 03/27/20 05:28 Tramadol HCl (Ultram) 50 mg Q6H PRN ORAL Moderate Pain (Pain Scale 4-6) 03/26/20 19:30 04/02/20 19:29 03/27/20 05:28 Zinc Oxide (Zinc Oxide) 1 applic Q8HR TOPIC 03/25/20 22:00 06/22/20 17:59 03/27/20 05:29 Assessment/Plan Assessment/Plan 1. Chronic respiratory failure. - CT chest/abd/pelv: improving pleural effusion 2. Mechanical ventilation. - current setting at AC 14, Vt 500, FiO2 40%, PEEP 5 saturating well - continue current setting - suction secretions as needed 3. Chronic tracheostomy. 4. Chronic G-tube. 5. Anemia. - s/p transfusion - stool OB positive (03/02, 03/03, 03/22) - off anticoags 6. Renal failure. 7. Leukocytosis and sepsis. - WBC now wnl 8. Sepsis UTI 9. Gram positive cocci bacteremia - f/u BCx negative for growth 10. COVID-19 negative 11. Diarrhea - C. diff neg 12. Hypoglycemia - resolved 13. Bradycardia - no urgent indication for pacemaker per cardio 14. Gastric ulcer - on PPI -No active bleeding - GI following 15. Pleural effusion - small; insufficient volume for safe thoracentesis 16. thoracic aortic aneurysm - noted on CT imaging - pt needs emergent transfer out to [facility] for CT surgery evaluation, primary MD aware - Pt might not be a candidate for TAA repair 17. Ascites - s/p paracentesis (2/3), 2.3L out 18. DVT ppx - on SCD -Venous duplex ultrasound of legs negative for DVT (03/25) The care of this patient was discussed with my supervising physician Time spent for this encounter was approximately 31 minutes Cruz Wilson Mar 27, 2020 09:44
[2020-03-27 12:00] VITALS: BP 159/67
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
--- NOTE | 2020-03-27 13:25 | Nephrology Progress Note ---
Assessment/Plan Problem List: (1) Renal failure (ARF), acute on chronic (2) Anemia (3) Hyponatremia (4) Respiratory failure Assessment (1) JAVIER (acute kidney injury) (2) Renal failure (ARF), acute on chronic (3) Feeding by G-tube (4) Tracheostomy in place (5) Electrolyte imbalance, hyponatremia (6) Anemia, severe (7) Respiratory failure, acute and chronic (8) history of elevated lipase, pancreatitis (9) Elevated troponin I (10) Sepsis Plan March 27: Due for dialysis tomorrow. Labs reviewed. Medication list reviewed. Continue per current management. March 26: Last dialyzed March 24. Labs reviewed. Low phosphorus replaced. Continue to monitor renal parameters. Dialysis as needed. March 25: Dialyzed yesterday. Labs reviewed. Low phosphorus replaced. Continue per current management. Hemoglobin higher. March 24: Labs reviewed. Due for dialysis today. Continue per current management. Hemoglobin lower. Transfusion per moving picture operator. March 23: Labs reviewed. Dialyzed yesterday. Next dialysis tomorrow. Anemia management per moving picture operator. March 22: Labs reviewed. Due for dialysis today. Discussed with RN. Agree with discontinuation of the Norman catheter. Hemoglobin lower. Transfusion per moving picture operator. March 21: Labs reviewed. Will arrange for dialysis tomorrow. Continue per c onsultants. Will hold phosphorus binders at this time. March 20: Labs reviewed. Patient was dialyzed yesterday. Electrolyte abnormalities corrected. Continue per current management. March 19: Due for dialysis today. Abnormal labs noted. All will be corrected after dialysis. March 18: Labs reviewed. Will dialyze tomorrow. Patient being transfused today. Patient due for abdominal paracentesis. We will keep the Norman in. Continue to monitor renal parameters and dialyze as needed. March 17: No CHEM panel done today. CBC reviewed. Hemoglobin is lowering. Dialyzed yesterday. Will check lab tomorrow. Continue per consultants. March 16: Labs reviewed. Due for dialysis today. Hemoglobin 10.2 today. Continue to monitor renal parameters. March 15: Labs reviewed. Dialyzed March 13. Due for dialysis March 16. Hemoglobin lower. 1 unit of packed RBCs ordered. Per orders. March 14: No labs drawn today. Dialyzed yesterday. Full code. Will check lab tomorrow. Dialysis as needed. March 13: Labs reviewed. Due for dialysis today. Patient remains full code. Continue per current management. March 12: Labs reviewed. Dialyzed yesterday. Due for dialysis tomorrow. Discussed with RN. Patient full code. Continue per current management. March 11: Labs reviewed. Dialyzed this morning. Phosphorus binders dose adjusted. Continue per consultants. Continue to monitor renal parameters. CT: Extensive thoracoabdominal aortic dissection March 10: Labs reviewed. Will order dialysis tomorrow. Phosphorus binders added. Continue per consultants. March 09: No chemistry panel done today. Patient dialyzed yesterday. On dextrose 10% for hypoglycemia. We will check labs tomorrow. Dialysis as needed. March 08: Labs reviewed. Will order dialysis today. Blood sugar low. D10 50 cc an hour started. Continue as is. March 07: Labs reviewed. Dialyzed March 05 and March 06. Continue to monitor renal parameters and hemoglobin. Abnormal electrolytes addressed. IV fluids stopped. Per orders. March 06: Labs reviewed. Dialyzed yesterday. Will reorder dialysis for today. Continue to monitor renal parameters. Hemoglobin 8.4. Patient full code. March 05: Labs reviewed. Patient did not receive dialysis until this morning. Proceed with dialysis. Continue to monitor renal parameters and hemoglobin and hematocrit. March 04: Labs reviewed. Hemoglobin lower. Patient actively bleeding. Was not dialyzed yesterday. Due for GI endoscopy. Continue fluid challenge. Transfusion as needed. Dialysis today. March 03: Labs reviewed. Dialysis ordered. Blood pressure medication all discontinued due to hypotensive state. Albumin bolus given. Continue to monitor renal parameters. Medication list reviewed. Midodrin for low blood pressure ordered Subjective ROS Limited/Unobtainable: Yes Objective Objective Last 24 Hour Vital Signs Date Time Temp Pulse Resp B/P (MAP) Pulse Ox O2 Delivery O2 Flow Rate FiO2 03/27/20 12:00 Mechanical Ventilator 03/27/20 12:00 98.1 67 24 159/67 (97) 98 03/27/20 12:00 40 03/27/20 08:05 67 03/27/20 08:00 96.0 63 25 156/60 (92) 98 03/27/20 08:00 40 03/27/20 08:00 Mechanical Ventilator 03/27/20 07:10 67 15 40 03/27/20 05:27 74 152/72 03/27/20 05:23 74 15 40 03/27/20 04:00 98.1 74 22 152/72 (98) 98 03/27/20 04:00 73 03/27/20 04:00 Mechanical Ventilator 03/27/20 04:00 40 03/27/20 03:15 80 18 40 03/27/20 01:28 81 30 40 03/27/20 00:00 40 03/27/20 00:00 74 03/27/20 00:00 97.9 74 24 151/77 (101) 100 03/27/20 00:00 Mechanical Ventilator 03/26/20 23:17 76 19 40 03/26/20 22:11 77 155/74 03/26/20 21:06 77 16 40 03/26/20 20:00 97.7 85 24 155/74 (101) 97 03/26/20 20:00 Mechanical Ventilator 03/26/20 20:00 40 03/26/20 19:48 88 03/26/20 19:13 96 23 40 03/26/20 16:00 97.9 85 23 150/83 (105) 96 03/26/20 16:00 40 03/26/20 16:00 Mechanical Ventilator 03/26/20 16:00 70 03/26/20 15:10 75 22 40 03/26/20 13:33 76 152/66 Intake and Output 03/26/20 03/27/20 19:00 07:00 Intake Total 690.546 ml 545.273 ml Balance 690.546 ml 545.273 ml Intake Free Water 130 ml 90 ml IV Total 140.546 ml 70.273 ml Tube Feeding 420 ml 385 ml # Bowel Movements 1 1 Current Medications Medications (Trade) Dose Ordered Sig/Penny Route PRN Reason Start Time Stop Time Status Last Admin Dose Admin Acetaminophen (Tylenol) 650 mg Q6H PRN GT Mild Pain (Pain Scale 1-3) 03/02/20 22:30 04/01/20 22:29 03/18/20 11:14 Acetaminophen (Tylenol) 650 mg Q6H PRN GT Temp >100.5 03/03/20 03:00 04/01/20 22:29 03/23/20 21:49 Aspirin (ASA) 81 mg DAILY GT 03/07/20 09:00 04/21/20 08:59 03/27/20 09:27 Carvedilol (Coreg) 6.25 mg EVERY 8 HOURS GT 03/20/20 22:00 04/13/20 20:59 03/27/20 05:27 Chlorhexidine Gluconate (Ling-Hex 2%) 1 applic DAILY@1999 TOPIC 03/03/20 20:00 06/01/20 19:59 03/26/20 20:04 Dextrose (Dextrose 50%) 25 ml Q30M PRN IV Hypoglycemia 03/15/20 07:30 06/13/20 07:29 Dextrose (Dextrose 50%) 50 ml Q30M PRN IV Hypoglycemia 03/15/20 07:30 06/13/20 07:29 Hydralazine HCl (Apresoline) 25 mg Q6H PRN GT For High Blood Pressure 03/02/20 22:00 05/31/20 21:59 Hydrocortisone (Anusol HC) 25 mg Q12HR RECTAL 03/23/20 21:00 06/21/20 08:59 03/27/20 09:27 Hydromorphone HCl (Dilaudid) 0.5 mg Q4H PRN IVP For Pain 03/26/20 19:30 04/02/20 19:29 03/27/20 09:41 Loperamide HCl (Imodium) 2 mg Q6H PRN GT Diarrhea 03/06/20 12:45 04/05/20 12:44 03/06/20 13:01 Metoclopramide HCl (Reglan) 5 mg Q8HR IVP 03/04/20 11:45 04/03/20 11:44 03/27/20 05:27 Midodrine (Pro-Amatine) 10 mg EVERY 8 HOURS GT 03/17/20 22:00 06/01/20 12:59 03/24/20 13:02 Pantoprazole (Protonix) 40 mg EVERY 12 HOURS IVP 03/04/20 21:00 04/02/20 20:59 03/27/20 09:27 Polyethylene Glycol (Miralax) 17 gm BEDTIME PRN GT Constipation 03/02/20 22:00 04/01/20 21:59 Sodium Hypochlorite (Dakin's Quarter Strength) 1 applic DAILY TOPIC 03/04/20 09:00 04/03/20 08:59 03/27/20 09:27 Sucralfate (Carafate) 1 gm EVERY 6 HOURS GT 03/17/20 18:00 06/09/20 08:59 03/27/20 11:50 Tramadol HCl (Ultram) 50 mg Q6H PRN ORAL Moderate Pain (Pain Scale 4-6) 03/26/20 19:30 04/02/20 19:29 03/27/20 05:28 Zinc Oxide (Zinc Oxide) 1 applic Q8HR TOPIC 03/25/20 22:00 06/22/20 17:59 03/27/20 05:29 Laboratory Tests 03/27/20 04:05: White Blood Count 6.1, Red Blood Count 2.85L, Hemoglobin 8.7L, Hematocrit 25.7L, Mean Corpuscular Volume 90, Mean Corpuscular Hemoglobin 30.6, Mean Corpuscular Hemoglobin Concent 33.9, Red Cell Distribution Width 14.2, Platelet Count 135L, Mean Platelet Volume 7.4, Neutrophils (%) (Auto) 78.7H, Lymphocytes (%) (Auto) 15.7L, Monocytes (%) (Auto) 5.1, Eosinophils (%) (Auto) 0.0, Basophils (%) (Auto) 0.5, Sodium Level 137, Potassium Level 3.8, Chloride Level 100, Carbon Dioxide Level 30, Anion Gap 7, Blood Urea Nitrogen 83H, Creatinine 2.5H, Estimat Glomerular Filtration Rate 20.6, Glucose Level 100, Calcium Level 7.1L, Phosphorus Level 2.6, Magnesium Level 1.9, Total Bilirubin 0.6, Aspartate Amino Transf (AST/SGOT) 35, Alanine Aminotransferase (ALT/SGPT) 19, Alkaline Bartolome sphatase 167H, Total Protein 5.2L, Albumin 1.2L, Globulin 4.0, Albumin/Globulin Ratio 0.3L Height (Feet): 5 Height (Inches): 3.00 Weight (Pounds): 128 General Appearance: no apparent distress EENT: other - Trach to vent Cardiovascular: normal rate Respiratory/Chest: decreased breath sounds Abdomen: distended Johnny Houston MD Mar 27, 2020 13:25
--- NOTE | 2020-03-27 14:23 | NUR ---
NURSE NOTES: Dr Houston called and changed HD to tomorrow, noted and carried out. HD nurse Jack IS AWARE AND STATED OOZY WILL DO TOMORROW.
--- NOTE | 2020-03-27 15:28 | NUR ---
INSURANCE CLINICALS/REVIEW FAXED TO [facility] T: [phone] F: [phone]
[2020-03-27 16:00] VITALS: BP 131/71
--- NOTE | 2020-03-27 16:00 | NUR ---
NURSE NOTES: wound treatment and g tube dressing changed as order and pt tolerated well. will continue to monitor.
--- NOTE | 2020-03-27 18:13 | General Progress Note ---
Subjective Constitutional: Reports: no symptoms HEENT: Reports: no symptoms Cardiovascular: Reports: no symptoms Respiratory: Reports: no symptoms Gastrointestinal/Abdominal: Reports: no symptoms Genitourinary: Reports: no symptoms Neurologic/Psychiatric: Reports: no symptoms Endocrine: Reports: no symptoms Hematologic/Lymphatic: Reports: no symptoms Allergies: Coded Allergies: No Known Allergies (Unverified , 10/10/17) Objective Last 24 Hour Vital Signs Date Time Temp Pulse Resp B/P (MAP) Pulse Ox O2 Delivery O2 Flow Rate FiO2 03/27/20 16:00 98.2 70 16 131/71 (91) 99 03/27/20 16:00 40 03/27/20 15:57 66 16 40 03/27/20 15:55 Mechanical Ventilator 03/27/20 14:39 67 159/67 03/27/20 12:00 Mechanical Ventilator 03/27/20 12:00 98.1 67 24 159/67 (97) 98 03/27/20 12:00 40 03/27/20 11:25 67 15 40 03/27/20 08:05 67 03/27/20 08:00 96.0 63 25 156/60 (92) 98 03/27/20 08:00 40 03/27/20 08:00 Mechanical Ventilator 03/27/20 07:10 67 15 40 03/27/20 05:27 74 152/72 03/27/20 05:23 74 15 40 03/27/20 04:00 98.1 74 22 152/72 (98) 98 03/27/20 04:00 73 03/27/20 04:00 Mechanical Ventilator 03/27/20 04:00 40 03/27/20 03:15 80 18 40 03/27/20 01:28 81 30 40 03/27/20 00:00 40 03/27/20 00:00 74 03/27/20 00:00 97.9 74 24 151/77 (101) 100 03/27/20 00:00 Mechanical Ventilator 03/26/20 23:17 76 19 40 03/26/20 22:11 77 155/74 03/26/20 21:06 77 16 40 03/26/20 20:00 97.7 85 24 155/74 (101) 97 03/26/20 20:00 Mechanical Ventilator 03/26/20 20:00 40 03/26/20 19:48 88 03/26/20 19:13 96 23 40 Intake and Output 03/26/20 03/27/20 19:00 07:00 Intake Total 690.546 ml 580.273 ml Balance 690.546 ml 580.273 ml Intake Free Water 130 ml 90 ml IV Total 140.546 ml 70.273 ml Tube Feeding 420 ml 420 ml # Bowel Movements 1 1 Laboratory Tests 03/27/20 04:05: White Blood Count 6.1, Red Blood Count 2.85L, Hemoglobin 8.7L, Hematocrit 25.7L, Mean Corpuscular Volume 90, Mean Corpuscular Hemoglobin 30.6, Mean Corpuscular Hemoglobin Concent 33.9, Red Cell Distribution Width 14.2, Platelet Count 135L, Mean Platelet Volume 7.4, Neutrophils (%) (Auto) 78.7H, Lymphocytes (%) (Auto) 15.7L, Monocytes (%) (Auto) 5.1, Eosinophils (%) (Auto) 0.0, Basophils (%) (Auto) 0.5, Sodium Level 137, Potassium Level 3.8, Chloride Level 100, Carbon Dioxide Level 30, Anion Gap 7, Blood Urea Nitrogen 83H, Creatinine 2.5H, Estimat Glomerular Filtration Rate 20.6, Glucose Level 100, Calcium Level 7.1L, Phosphorus Level 2.6, Magnesium Level 1.9, Total Bilirubin 0.6, Aspartate Amino Transf (AST/SGOT) 35, Alanine Aminotransferase (ALT/SGPT) 19, Alkaline Phosphatase 167H, Total Protein 5.2L, Albumin 1.2L, Globulin 4.0, Albumin/Globulin Ratio 0.3L Height (Feet): 5 Height (Inches): 3.00 Weight (Pounds): 128 General Appearance: no apparent distress, alert EENT: normal ENT inspection Neck: supple Cardiovascular: normal rate, regular rhythm, no gallop/murmur, no JVD Respiratory/Chest: lungs clear, normal breath sounds, no respiratory distress, no accessory muscle use Abdomen: normal bowel sounds, non tender, soft, no organomegaly, no mass Extremities: non-tender Neurologic: abnormal gait, responsive Skin: warm/dry Assessment/Plan Status Narrative She is awake alert afebrile hemodynamically stable she establishes eye contact she is attentive during the visit and only answer by head node she attempt to talk but most of the talk is not understood insists on returning home her condition was explained to her again she nodded her head states she understood understood that she is now dialysis dependent which will remain that she will have to be transferred to a different facility physical exam is unchanged she does not have any leukocytosis she is off antibiotic laboratory tests will be done in a..Lucas Vera MD, MD Mar 27, 2020 18:13
--- NOTE | 2020-03-27 19:27 | NUR ---
NURSE HAND-OFF REPORT: Important Events on Shift: Patient Status: Diet: Pending Orders: Pending Results/Labs: Pending MD notification: Latest Vital Signs: Temperature 98.2 , Pulse 63 , B/P 131 /71 , Respiratory Rate 16 , O2 SAT 99 , Mechanical Ventilator, O2 Flow Rate . Vital Sign Comment: EKG Rhythm: Sinus Rhythm Rhythm change?: N Notified?: N -Dr Екатерина HATFIELD Response: No New Orders Received Latest Chavarria Fall Score: 60 Fall Risk: High Risk Safety Measures: Call light Within Reach, Bed Alarm Zone 2, Side Rails Side Rails x3, Bed position Low and Locked. Fall Precautions: Yellow Socks Report given to . Pt is sleeping and stable, no pain noted. Endorsed plan of care, endorsed to monitor pain.
[2020-03-27 20:00] VITALS: BP 112/51
[2020-03-27] MEDS: Dyna-Hex 2% Top Sol 2oz TOPIC SCH (21:18)
[2020-03-28] VITALS (8 sets, daily range): BP systolic 119–141; BP diastolic 52–76
[2020-03-28] MEDS: Sucralfate 1gm tab GT SCH ×5 (00:13→23:29)
[2020-03-28 05:15] LABS: BASOPHILS % (AUTO) 0.5 % (0.0-2.0); EOSINOPHILS % (AUTO) 0.1 % (0.0-3.0); HEMATOCRIT 24.5 % (37.0-47.0); HEMOGLOBIN 8.3 G/DL (12.0-16.0); LYMPHOCYTES % (AUTO) 18.3 % (20.0-45.0); MEAN CORPUSCULAR VOLUME 90 FL (80-99); MONOCYTES % (AUTO) 3.7 % (1.0-10.0); NEUTROPHILS % (AUTO) 77.3 % (45.0-75.0); PLATELET COUNT 132 K/UL (150-450); RED BLOOD COUNT 2.73 M/UL (4.20-5.40); RED CELL DISTRIBUTION WIDTH 13.5 % (11.6-14.8); WHITE BLOOD COUNT 5.8 K/UL (4.8-10.8)
[2020-03-28] MEDS: Metoclopramide 10mg/2ml Inj IVP SCH ×3 (05:17→21:16)
[2020-03-28] MEDS: Carvedilol 6.25mg Tab GT SCH ×3 (05:17→21:16)
[2020-03-28] MEDS: Midodrine 10mg tab GT SCH ×3 (05:18→20:40)
[2020-03-28] MEDS: Zinc Oxide Oint 2oz TOPIC SCH ×3 (05:18→21:18)
[2020-03-28] MEDS: Hydromorphone 0.5mg/0.5ml inj IVP PRN ×3 (05:18→21:17)
--- NOTE | 2020-03-28 07:10 | NUR ---
NURSE NOTES: Report received from ERASMO Lambert. Patient is on bed, no signs of grimacing or distress noted. Has a GT feeding running nephro at 35cc/hr, patent, intact, and tolerating well. T-V S7 with settings of AC 14, TV 500, FiO2 40%, PEEP 5, tolerating well. Has a pure wick but patient is still oliguric. Has a R U chest subclavian perma cath for dialysis, and a L FA 20 gabo peripheral IV, patent, intact, and saline locked. HOB elevated, bed on lowest position, locked, side rails up, call light within reach. Will continue to be monitored. Will continue plan of care.
--- NOTE | 2020-03-28 07:17 | NUR ---
RD ASSESSMENT & RECOMMENDATIONS SEE CARE ACTIVITY FOR COMPLETE ASSESSMENT DAILY ESTIMATED NEEDS: Needs based on Critical care, wound, renal dysfunction 59.5 kg 27-22 kcals/kg 8108-4813 total kcals W/ HD (1.5-2.0) g protein/kg 89-119 g total protein Fluid per MD NUTRITION DIAGNOSIS: * Swallowing difficulty R/T dysphagia, respiratory status as evidenced by vent dep via trach, GT Dep. * Increase kcal and pro needs r/t wound healing, renal dysfunction as evidenced by h/o stage 4 sacral wound, and HD. CURRENT TF: Nepro @ 35ml/hr x 24 hrs ENTERAL NUTRITION RECOMMENDATIONS: Nepro @40ml/hr x 24 hrs + Prosource 1pkt BID to provide 960ml, 1728kcal, 78g+22g prot, 779ml free water * INCREASE goal rate to 40ml/hr. * Add Prosource 1pkt BID to better meet increased protein needs (additional 11g prot/each) * Water flush per MD/ HOB over 30 degrees ADDITIONAL RECOMMENDATIONS: * Calibrated bed scale, wts fluctuatinkg-> 68kg->76.5kg now * Monitor for HD continuity * WC eval-> w/ TF orders add FRANKLIN in 4oz H2O BID via GT Vit C per nephrology, add Nephrovite 1 tab daily. * Monitor BGs closely for hypoglycemia On Bedside BG checks * Monitor lytes, replete as needed- phos now wnl.
[2020-03-28 07:59] LABS: CALCIUM 7.3 MG/DL (8.5-10.1); CREATININE 2.6 MG/DL (0.55-1.30)
[2020-03-28 08:04] LABS: ALBUMIN 1.1 G/DL (3.4-5.0); ALBUMIN/GLOBULIN RATIO 0.3 (1.0-2.7); BILIRUBIN,TOTAL 0.6 MG/DL (0.2-1.0)
--- NOTE | 2020-03-28 08:30 | NUR ---
NURSE NOTES: Patient will be having dialysis today. It will be done in the afternoon per customer support specialist.
[2020-03-28] MEDS: Pantoprazole Inj IVP SCH ×2 (08:44→20:32)
[2020-03-28] MEDS: Aspirin Baby 81mg GT SCH (08:44)
[2020-03-28] MEDS: Hydrocortisone 25mg supp RECTAL SCH ×2 (08:44→20:32)
[2020-03-28] MEDS: Dakin's 0.125% Soln (Quarter Strength) 16oz TOPIC SCH (08:45)
--- NOTE | 2020-03-28 11:02 | Pulmonology Progress Note ---
Subjective ROS Limited/Unobtainable: Yes Interval Events: none major reported per nursing Constitutional: Reports: fever, other - resolved HEENT: Repors: no symptoms Respiratory: Reports: no symptoms Cardiovascular: Reports: no symptoms Gastrointestinal/Abdominal: Reports: diarrhea Allergies: Coded Allergies: No Known Allergies (Unverified , 10/10/17) All Systems: reviewed and negative except above Objective Last 24 Hour Vital Signs Date Time Temp Pulse Resp B/P (MAP) Pulse Ox O2 Delivery O2 Flow Rate FiO2 03/28/20 08:25 63 03/28/20 08:00 Mechanical Ventilator 03/28/20 08:00 40 03/28/20 08:00 98.2 63 16 140/76 (97) 97 63 03/28/20 05:17 74 157/84 03/28/20 04:00 92 03/28/20 04:00 40 03/28/20 04:00 98.1 92 24 119/52 (74) 96 03/28/20 04:00 Mechanical Ventilator 03/28/20 03:26 70 15 40 03/28/20 00:00 99.0 69 20 141/61 (87) 97 03/28/20 00:00 Mechanical Ventilator 03/27/20 23:01 77 15 40 03/27/20 21:21 66 139/80 03/27/20 20:00 Mechanical Ventilator 03/27/20 20:00 77 03/27/20 20:00 40 03/27/20 20:00 100.6 77 20 112/51 (71) 97 03/27/20 19:00 63 16 40 03/27/20 16:00 98.2 70 16 131/71 (91) 99 03/27/20 16:00 40 03/27/20 15:57 66 16 40 03/27/20 15:55 Mechanical Ventilator 03/27/20 15:46 63 03/27/20 14:39 67 159/67 03/27/20 12:00 Mechanical Ventilator 03/27/20 12:00 98.1 67 24 159/67 (97) 98 03/27/20 12:00 64 03/27/20 12:00 40 03/27/20 11:25 67 15 40 Intake and Output 03/27/20 03/28/20 19:00 07:00 Intake Total 480 ml 535 ml Balance 480 ml 535 ml Intake Free Water 60 ml 150 ml Tube Feeding 420 ml 385 ml # Voids 1 2 # Bowel Movements 1 General Appearance: no acute distress HEENT: atraumatic Respiratory: lungs clear Cardiovascular: normal rate, regular rhythm Extremities: other - edema bilateral Laboratory Tests 03/28/20 04:20: Sodium Level 137, Potassium Level 4.0, Chloride Level 100, Carbon Dioxide Level 30, Anion Gap 7, Blood Urea Nitrogen 88H, Creatinine 2.6H, Estimat Glomerular Filtration Rate 19.7, Glucose Level 98, Calcium Level 7.3L, Total Bilirubin 0.6, Aspartate Amino Transf (AST/SGOT) 34, Alanine Aminotransferase (ALT/SGPT) 21, Alkaline Phosphatase 143H, Total Protein 5.0L, Albumin 1.1L, Globulin 3.9, Albumin/Globulin Ratio 0.3L 03/28/20 04:25: White Blood Count 5.8, Red Blood Count 2.73L, Hemoglobin 8.3L, Hematocrit 24.5L, Mean Corpuscular Volume 90, Mean Corpuscular Hemoglobin 30.3, Mean Corpuscular Hemoglobin Concent 33.8, Red Cell Distribution Width 13.5, Platelet Count 132L, Mean Platelet Volume 7.9, Neutrophils (%) (Auto) 77.3H, Lymphocytes (%) (Auto) 18.3L, Monocytes (%) (Auto) 3.7, Eosinophils (%) (Auto) 0.1, Basophils (%) (Auto) 0.5 Current Medications Medications (Trade) Dose Ordered Sig/Penny Route PRN Reason Start Time Stop Time Status Last Admin Dose Admin Acetaminophen (Tylenol) 650 mg Q6H PRN GT Mild Pain (Pain Scale 1-3) 03/02/20 22:30 04/01/20 22:29 03/18/20 11:14 Acetaminophen (Tylenol) 650 mg Q6H PRN GT Temp >100.5 03/03/20 03:00 04/01/20 22:29 03/23/20 21:49 Aspirin (ASA) 81 mg DAILY GT 03/07/20 09:00 04/21/20 08:59 03/28/20 08:44 Carvedilol (Coreg) 6.25 mg EVERY 8 HOURS GT 03/20/20 22:00 04/13/20 20:59 03/28/20 05:17 Chlorhexidine Gluconate (Ling-Hex 2%) 1 applic DAILY@2000 TOPIC 03/03/20 20:00 06/01/20 19:59 03/27/20 21:18 Dextrose (Dextrose 50%) 25 ml Q30M PRN IV Hypoglycemia 03/15/20 07:30 06/13/20 07:29 Dextrose (Dextrose 50%) 50 ml Q30M PRN IV Hypoglycemia 03/15/20 07:30 06/13/20 07:29 Hydralazine HCl (Apresoline) 25 mg Q6H PRN GT For High Blood Pressure 03/02/20 22:00 05/31/20 21:59 Hydrocortisone (Anusol HC) 25 mg Q12HR RECTAL 03/23/20 21:00 06/21/20 08:59 03/28/20 08:44 Hydromorphone HCl (Dilaudid) 0.5 mg Q4H PRN IVP For Pain 03/26/20 19:30 04/02/20 19:29 03/28/20 05:18 Loperamide HCl (Imodium) 2 mg Q6H PRN GT Diarrhea 03/06/20 12:45 04/05/20 12:44 03/06/20 13:01 Metoclopramide HCl (Reglan) 5 mg Q8HR IVP 03/04/20 11:45 04/03/20 11:44 03/28/20 05:17 Midodrine (Pro-Amatine) 10 mg EVERY 8 HOURS GT 03/17/20 22:00 06/01/20 12:59 03/24/20 13:02 Pantoprazole (Protonix) 40 mg EVERY 12 HOURS IVP 03/04/20 21:00 04/02/20 20:59 03/28/20 08:44 Polyethylene Glycol (Miralax) 17 gm BEDTIME PRN GT Constipation 03/02/20 22:00 04/01/20 21:59 Sodium Hypochlorite (Dakin's Quarter Strength) 1 applic DAILY TOPIC 03/04/20 09:00 04/03/20 08:59 03/28/20 08:45 Sucralfate (Carafate) 1 gm EVERY 6 HOURS GT 03/17/20 18:00 06/09/20 08:59 03/28/20 05:16 Tramadol HCl (Ultram) 50 mg Q6H PRN ORAL Moderate Pain (Pain Scale 4-6) 03/26/20 19:30 04/02/20 19:29 03/27/20 21:21 Zinc Oxide (Zinc Oxide) 1 applic Q8HR TOPIC 03/25/20 22:00 06/22/20 17:59 03/28/20 05:18 Assessment/Plan Assessment/Plan 1. Chronic respiratory failure. - CT chest/abd/pelv: improving pleural effusion 2. Mechanical ventilation. - current setting at AC 14, Vt 500, FiO2 40%, PEEP 5 saturating well - continue current setting - suction secretions as needed 3. Chronic tracheostomy. 4. Chronic G-tube. 5. Anemia. - s/p transfusion - stool OB positive (03/02, 03/03, 03/22) - off anticoags 6. Renal failure. 7. Leukocytosis and sepsis. - WBC now wnl 8. Sepsis UTI 9. Gram positive cocci bacteremia - f/u BCx negative for growth 10. COVID-19 negative 11. Diarrhea - C. diff neg 12. Hypoglycemia - resolved 13. Bradycardia - no urgent indication for pacemaker per cardio 14. Gastric ulcer - on PPI -No active bleeding - GI following 15. Pleural effusion - small; insufficient volume for safe thoracentesis 16. thoracic aortic aneurysm - noted on CT imaging - pt needs emergent transfer out to [facility] for CT surgery evaluation, primary MD aware - Pt might not be a candidate for TAA repair 17. Ascites - s/p paracentesis (2), 2.3L out 18. DVT ppx - on SCD -Venous duplex ultrasound of legs negative for DVT (03/25) The care of this patient was discussed with my supervising physician Time spent for this encounter was approximately 31 minutes Cruz Wilson Mar 28, 2020 11:02
--- NOTE | 2020-03-28 11:32 | Nephrology Progress Note ---
Assessment/Plan Problem List: (1) Renal failure (ARF), acute on chronic (2) Anemia (3) Hyponatremia (4) Respiratory failure Assessment (1) JAVIER (acute kidney injury) (2) Renal failure (ARF), acute on chronic (3) Feeding by G-tube (4) Tracheostomy in place (5) Electrolyte imbalance, hyponatremia (6) Anemia, severe (7) Respiratory failure, acute and chronic (8) history of elevated lipase, pancreatitis (9) Elevated troponin I (10) Sepsis Plan March 28: Due for dialysis today. Labs reviewed. Stable from renal standpoint of view. March 27: Due for dialysis tomorrow. Labs reviewed. Medication list reviewed. Continue per current management. March 26: Last dialyzed March 24. Labs reviewed. Low phosphorus replaced. Continue to monitor renal parameters. Dialysis as needed. March 25: Dialyzed yesterday. Labs reviewed. Low phosphorus replaced. Continue per current management. Hemoglobin higher. March 24: Labs reviewed. Due for dialysis today. Continue per current management. Hemoglobin lower. Transfusion per system software programmer. March 23: Labs reviewed. Dialyzed yesterday. Next dialysis tomorrow. Anemia management per system software programmer. March 22: Labs reviewed. Due for dialysis today. Discussed with RN. Agree with discontinuation of the Norman catheter. Hemoglobin lower. Transfusion per system software programmer. March 21: Labs reviewed. Will arrange for dialysis tomorrow. Continue per consultants. Will hold phosphorus binders at this time. March 20: Labs reviewed. Patient was dialyzed yesterday. Electrolyte abnormalities corrected. Continue per current management. March 19: Due for dialysis today. Abnormal labs noted. All will be corrected after dialysis. March 18: Labs reviewed. Will dialyze tomorrow. Patient being transfused today. Patient due for abdominal paracentesis. We will keep the Norman in. Continue to monitor renal parameters and dialyze as needed. March 17: No CHEM panel done today. CBC reviewed. Hemoglobin is lowering. Dialyzed yesterday. Will check lab tomorrow. Continue per consultants. March 16: Labs reviewed. Due for dialysis today. Hemoglobin 10.2 today. Continue to monitor renal parameters. March 15: Labs reviewed. Dialyzed March 13. Due for dialysis March 16. Hemoglobin lower. 1 unit of packed RBCs ordered. Per orders. March 14: No labs drawn today. Dialyzed yesterday. Full code. Will check lab tomorrow. Dialysis as needed. March 13: Labs reviewed. Due for dialysis today. Patient remains full code. Continue per current management. March 12: Labs reviewed. Dialyzed yesterday. Due for dialysis tomorrow. Discussed with RN. Patient full code. Continue per current management. March 11: Labs reviewed. Dialyzed this morning. Phosphorus binders dose adjusted. Continue per consultants. Continue to monitor renal parameters. CT: Extensive thoracoabdominal aortic dissection March 10: Labs reviewed. Will order dialysis tomorrow. Phosphorus binders added. Continue per consultants. March 09: No chemistry panel done today. Patient dialyzed yesterday. On dextrose 10% for hypoglycemia. We will check labs tomorrow. Dialysis as needed. March 08: Labs reviewed. Will order dialysis today. Blood sugar low. D10 50 cc an hour started. Continue as is. March 07: Labs reviewed. Dialyzed March 05 and March 06. Continue to monitor renal parameters and hemoglobin. Abnormal electrolytes addressed. IV fluids stopped. Per orders. March 06: Labs reviewed. Dialyzed yesterday. Will reorder dialysis for today. Continue to monitor renal parameters. Hemoglobin 8.4. Patient full code. March 05: Labs reviewed. Patient did not receive dialysis until this morning. Proceed with dialysis. Continue to monitor renal parameters and hemoglobin and hematocrit. March 04: Labs reviewed. Hemoglobin lower. Patient actively bleeding. Was not dialyzed yesterday. Due for GI endoscopy. Continue fluid challenge. Transfusion as needed. Dialysis today. March 03: Labs reviewed. Dialysis ordered. Blood pressure medication all discontinued due to hypotensive state. Albumin bolus given. Continue to monitor renal parameters. Medication list reviewed. Midodrin for low blood pressure ordered Subjective ROS Limited/Unobtainable: Yes Objective Objective Last 24 Hour Vital Signs Date Time Temp Pulse Resp B/P (MAP) Pulse Ox O2 Delivery O2 Flow Rate FiO2 03/28/20 08:25 63 03/28/20 08:00 Mechanical Ventilator 03/28/20 08:00 40 03/28/20 08:00 98.2 63 16 140/76 (97) 97 63 03/28/20 07:15 62 14 40 03/28/20 05:17 74 157/84 03/28/20 04:00 92 03/28/20 04:00 40 03/28/20 04:00 98.1 92 24 119/52 (74) 96 03/28/20 04:00 Mechanical Ventilator 03/28/20 03:26 70 15 40 03/28/20 00:00 99.0 69 20 141/61 (87) 97 03/28/20 00:00 Mechanical Ventilator 03/27/20 23:01 77 15 40 03/27/20 21:21 66 139/80 03/27/20 20:00 Mechanical Ventilator 03/27/20 20:00 77 03/27/20 20:00 40 03/27/20 20:00 100.6 77 20 112/51 (71) 97 03/27/20 19:00 63 16 40 03/27/20 16:00 98.2 70 16 131/71 (91) 99 03/27/20 16:00 40 03/27/20 15:57 66 16 40 03/27/20 15:55 Mechanical Ventilator 03/27/20 15:46 63 03/27/20 14:39 67 159/67 03/27/20 12:00 Mechanical Ventilator 03/27/20 12:00 98.1 67 24 159/67 (97) 98 03/27/20 12:00 64 03/27/20 12:00 40 Intake and Output 03/27/20 03/28/20 19:00 07:00 Intake Total 480 ml 535 ml Balance 480 ml 535 ml Intake Free Water 60 ml 150 ml Tube Feeding 420 ml 385 ml # Voids 1 2 # Bowel Movements 1 Current Medications Medications (Trade) Dose Ordered Sig/Penny Route PRN Reason Start Time Stop Time Status Last Admin Dose Admin Acetaminophen (Tylenol) 650 mg Q6H PRN GT Mild Pain (Pain Scale 1-3) 03/02/20 22:30 04/01/20 22:29 03/18/20 11:14 Acetaminophen (Tylenol) 650 mg Q6H PRN GT Temp >100.5 03/03/20 03:00 04/01/20 22:29 03/23/20 21:49 Aspirin (ASA) 81 mg DAILY GT 03/07/20 09:00 04/21/20 08:59 03/28/20 08:44 Carvedilol (Coreg) 6.25 mg EVERY 8 HOURS GT 03/20/20 22:00 04/13/20 20:59 03/28/20 05:17 Chlorhexidine Gluconate (Ling-Hex 2%) 1 applic DAILY@1999 TOPIC 03/03/20 20:00 06/01/20 19:59 03/27/20 21:18 Dextrose (Dextrose 50%) 25 ml Q30M PRN IV Hypoglycemia 03/15/20 07:30 06/13/20 07:29 Dextrose (Dextrose 50%) 50 ml Q30M PRN IV Hypoglycemia 03/15/20 07:30 06/13/20 07:29 Hydralazine HCl (Apresoline) 25 mg Q6H PRN GT For High Blood Pressure 03/02/20 22:00 05/31/20 21:59 Hydrocortisone (Anusol HC) 25 mg Q12HR RECTAL 03/23/20 21:00 06/21/20 08:59 03/28/20 08:44 Hydromorphone HCl (Dilaudid) 0.5 mg Q4H PRN IVP For Pain 03/26/20 19:30 04/02/20 19:29 03/28/20 05:18 Loperamide HCl (Imodium) 2 mg Q6H PRN GT Diarrhea 03/06/20 12:45 04/05/20 12:44 03/06/20 13:01 Metoclopramide HCl (Reglan) 5 mg Q8HR IVP 03/04/20 11:45 04/03/20 11:44 03/28/20 05:17 Midodrine (Pro-Amatine) 10 mg EVERY 8 HOURS GT 03/17/20 22:00 06/01/20 12:59 03/24/20 13:02 Pantoprazole (Protonix) 40 mg EVERY 12 HOURS IVP 03/04/20 21:00 04/02/20 20:59 03/28/20 08:44 Polyethylene Glycol (Miralax) 17 gm BEDTIME PRN GT Constipation 03/02/20 22:00 04/01/20 21:59 Sodium Hypochlorite (Dakin's Quarter Strength) 1 applic DAILY TOPIC 03/04/20 09:00 04/03/20 08:59 03/28/20 08:45 Sucralfate (Carafate) 1 gm EVERY 6 HOURS GT 03/17/20 18:00 06/09/20 08:59 03/28/20 05:16 Tramadol HCl (Ultram) 50 mg Q6H PRN ORAL Moderate Pain (Pain Scale 4-6) 03/26/20 19:30 04/02/20 19:29 03/27/20 21:21 Zinc Oxide (Zinc Oxide) 1 applic Q8HR TOPIC 03/25/20 22:00 06/22/20 17:59 03/28/20 05:18 Laboratory Tests 03/28/20 04:20: Sodium Level 137, Potassium Level 4.0, Chloride Level 100, Carbon Dioxide Level 30, Anion Gap 7, Blood Urea Nitrogen 88H, Creatinine 2.6H, Estimat Glomerular Filtration Rate 19.7, Glucose Level 98, Calcium Level 7.3L, Total Bilirubin 0.6, Aspartate Amino Transf (AST/SGOT) 34, Alanine Aminotransferase (ALT/SGPT) 21, Alkaline Phosphatase 143H, Total Protein 5.0L, Albumin 1.1L, Globulin 3.9, Albumin/Globulin Ratio 0.3L 03/28/20 04:25: White Blood Count 5.8, Red Blood Count 2.73L, Hemoglobin 8.3L, Hematocrit 24.5L, Mean Corpuscular Volume 90, Mean Corpuscular Hemoglobin 30.3, Mean Corpuscular Hemoglobin Concent 33.8, Red Cell Distribution Width 13.5, Platelet Count 132L, Mean Platelet Volume 7.9, Neutrophils (%) (Auto) 77.3H, Lymphocytes (%) (Auto) 18.3L, Monocytes (%) (Auto) 3.7, Eosinophils (%) (Auto) 0.1, Basophils (%) (Auto) 0.5 Height (Feet): 5 Height (Inches): 3.00 Weight (Pounds): 128 General Appearance: no apparent distress Cardiovascular: normal rate Respiratory/Chest: decreased breath sounds Abdomen: soft Johnny Houston MD Mar 28, 2020 11:32
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
--- NOTE | 2020-03-28 12:26 | NUR ---
NURSE NOTES: FiO2 changed to 100% by RT because patient is saturating on mid 80s. Patient is currently on HD and will titrate FiO2 down after.
--- NOTE | 2020-03-28 14:49 | NUR ---
NURSE NOTES: Midodrine non-administered because blood pressure is139/55 (hold med if SBP <110 per eMAR).
--- NOTE | 2020-03-28 14:55 | NUR ---
NURSE NOTES: Administered Dilaudid to patient bec of complaints of pain (9 on the pain scale based on FLACC). Will be re-assessing patient.
--- NOTE | 2020-03-28 15:03 | NUR ---
NURSE NOTES: Hemodialysis done. 2 L output per revenue accounting manager.
--- NOTE | 2020-03-28 19:15 | NUR ---
NURSE HAND-OFF REPORT: Important Events on Shift: hemodialysis Patient Status: Diet: Pending Orders: Pending Results/Labs: Pending MD notification: Latest Vital Signs: Temperature 97.1 , Pulse 76 , B/P 139 /55 , Respiratory Rate 19 , O2 SAT 96 , Mechanical Ventilator, O2 Flow Rate . Vital Sign Comment: EKG Rhythm: Sinus Rhythm Rhythm change?: N Notified?: N -Dr Екатерина HATFIELD Response: No New Orders Received Latest Chavarria Fall Score: 60 Fall Risk: High Risk Safety Measures: Call light Within Reach, Bed Alarm Zone 2, Side Rails Side Rails x3, Bed position Low and Locked. Fall Precautions: Yellow Socks Report given to ERASMO Bowden.
--- NOTE | 2020-03-28 19:28 | NUR ---
NURSE NOTES: Received report from ERASMO Kaba. Pt is awake, non-verbal, follows commands. No signs of acute distress noted. SR on night monitor, SpO2 95% on AC14, TV 500, FiOw 70%, PEEP 5. Grimacing noted, will give PRN pain meds when due. GT dressing dry and intact, running Nepro 35cc/hr. Purewick on, suctioning well. R UA permacath dressing dry and intact. L FA 20g asymptomatic, flushing well. HOb elevated, side rails x3, call light within reach, bed alarmed, locked, and in lowest position. Will continue plan of care. Will continue to monitor.
[2020-03-28] MEDS: Dyna-Hex 2% Top Sol 2oz TOPIC SCH (20:32)
--- NOTE | 2020-03-29 00:29 | NUR ---
NURSE NOTES: Pt is asleep, no acute distress noted. Vital signs are stable. Will continue to monitor.
[2020-03-29] MEDS: Hydromorphone 0.5mg/0.5ml inj IVP PRN ×3 (02:05→21:53)
--- NOTE | 2020-03-29 03:42 | NUR ---
NURSE NOTES: Bed bath given. Linens and gown changed. Sacral wound dressing redressed. GT dressing redressed. Oral care performed. Will continue plan of care. Will continue to monitor.
[2020-03-29] MEDS: Acetaminophen 650mg/20.3ml GT PRN (03:43)
[2020-03-29 04:00] VITALS: BP 143/75
[2020-03-29] MEDS: Midodrine 10mg tab GT SCH ×3 (05:07→21:44)
[2020-03-29] MEDS: Carvedilol 6.25mg Tab GT SCH ×3 (05:07→21:43)
[2020-03-29] MEDS: Sucralfate 1gm tab GT SCH ×3 (05:07→18:22)
[2020-03-29] MEDS: Metoclopramide 10mg/2ml Inj IVP SCH ×3 (05:07→21:43)
[2020-03-29] MEDS: Zinc Oxide Oint 2oz TOPIC SCH ×3 (05:08→21:43)
--- NOTE | 2020-03-29 07:17 | NUR ---
NURSE NOTES: Report received from ERASMO Bowden. Patient is on the bed, sleeping, no signs of grimacing or distress noted. Opened eyes when greeted in the room. Trache-vented S7 AC 14, TV 500, FiO2 70%, PEEP 5, tolerating well, current saturation is the mid 90s and high 90s. Has a GT feeding running nephro at 35 cc/hr, tolerating well, no residuals. On pure wick. Has a R UA chest subclavian perma cath for HD, and L FA 20 g IV site, patent, intact, and saline locked. HOB elevated, bed on lowest position, locked, side rails up. Will continue to be monitored. Will continue plan of care.
--- NOTE | 2020-03-29 07:19 | NUR ---
NURSE HAND-OFF REPORT: Important Events on Shift:[No acute events] Patient Status: [Tolerating] Diet: [Glucerna 35ml/c] Pending Orders: [] Pending Results/Labs:[] Pending notification:[] Latest Vital Signs: Temperature 97.7 , Pulse 85 , B/P 143 /75 , Respiratory Rate 17 , O2 SAT 100 , Mechanical Ventilator, O2 Flow Rate . Vital Sign Comment: [] EKG Rhythm: Sinus Rhythm Rhythm change?: Milena HATFIELD Notified?: Milena Willams MD Response: No New Orders Received Latest Chavarria Fall Score: 60 Fall Risk: High Risk Safety Measures: Call light Within Reach, Bed Alarm Zone 2, Side Rails Side Rails x3, Bed position Low and Locked. Fall Precautions: Yellow Socks Report given to []. Addendum: 03/29/20 at 0720 by Dennise Moore RN Important Events on Shift:[No acute events] Patient Status: [Tolerating] Diet: [Glucerna 35ml/c] Pending Orders: [NA] Pending Results/Labs:[NA] Pending notification:[NA] Latest Vital Signs: Temperature 97.7 , Pulse 85 , B/P 143 /75 , Respiratory Rate 17 , O2 SAT 100 , Mechanical Ventilator, O2 Flow Rate . Vital Sign Comment: [Stable] EKG Rhythm: Sinus Rhythm Rhythm change?: Milena HATFIELD Notified?: Milena Willams MD Response: No New Orders Received Latest Chavarria Fall Score: 60 Fall Risk: High Risk Safety Measures: Call light Within Reach, Bed Alarm Zone 2, Side Rails Side Rails x3, Bed position Low and Locked. Fall Precautions: Yellow Socks Report given to [ERASMO Kaba].
[2020-03-29 08:00] VITALS: BP 115/57
[2020-03-29] MEDS: Hydrocortisone 25mg supp RECTAL SCH ×2 (08:36→21:42)
[2020-03-29] MEDS: Pantoprazole Inj IVP SCH ×2 (08:38→21:42)
[2020-03-29] MEDS: Aspirin Baby 81mg GT SCH (08:38)
--- NOTE | 2020-03-29 08:38 | NUR ---
NURSE NOTES: Aspirin non-administered because of gastritis.
[2020-03-29] MEDS: Dakin's 0.125% Soln (Quarter Strength) 16oz TOPIC SCH (08:39)
--- NOTE | 2020-03-29 08:44 | NUR ---
NURSE NOTES: Dilaudid administered because patient has facial grimacing and she says she has pain by mouthing the words. FiO2 also titrated down from 70% to 50% and currently saturating in the mid 90s. Will titrate down to 40% (original order) according to how patient tolerates it.
--- NOTE | 2020-03-29 09:00 | Infectious Diseases Prog Note ---
Assessment/Plan 49yo F with: MDR Kleb pna bacteremia AMS Anemia to 1.9 on admission 03/02 Leukocytosis to 40, improving GPC bacteremia UTI Pneumonia c/b mod-large R pleural effusion and small L pleural effusion - compressive atelectasis Hypotension 03/02 BCx 1/2 +Staph epi, 12 +Staph haemolyticus (m/l skin colonizers) UA+, UCx >100k P.stuartii (S-angelo) & CRE P.mirablis (R-polyB/colistin, S- tobramycin, per [facility] is "intrinsically resistant to Avycaz/Zerbaxa" not clear why to me and they are unable to elaborate more) COVID rapid neg, PCR neg CXR: Tracheostomy again demonstrated. Interim placement of a right jugular tunneled dialysis catheter. There is infiltrate and volume loss in the left lung, particularly in the perihilar region, suprahilar region, and base. Consolidation at the lung base is similar. The perihilar and suprahilar region consolidation is new. The right lung pleural space are clear. C.dif neg 03/03 BCx NTD 03/06 BCx 2/2 +MDR Kleb pna (arnett-R, including R-polyB, colistin), 02/14 +E.faecium VRE (R-amp, S-linezolid) 03/08 BCx NTD 03/09 CT CAP: Very limited exam, as described, due to massive anasarca. This could limit visualization of the discrete fluid collection such as an abscess. Extensive thoracoabdominal aortic dissection, as described above. Current flap begins just distal to the left subclavian artery origin; per report, there is history of surgical repair so there may have been surgical repair of the ascending thoracic aorta. Bilateral pleural effusions, slightly smaller than on earlier exams. Extensive atelectasis as a result. Extensive pulmonary par enchymal disease as detailed above. This may reflect pneumonia or pulmonary edema or both. Evidence of pulmonary arterial hypertension, with dilatation of the pulmonary artery. Considerable ascites fluid. 03/11 Chest US: Small right, trace left pleural effusions, insufficient for safe thoracentesis AF Sepsis Leukocytosis Hypoxia on vent Pneumonia c/b L pleural effusion (recurrent, prior determined to be transudative) - s/p thora 01/21, 1050cc removed Volume overload, BNP >35,0000, likely 2/2 progressive CKD --> ESRD ?Pancreatitis, Lipase >2000 Acute anemia to 5s CONS bacteremia, ?contaminant Aflutter w/ RVR 01/13 BCx 2/2 +S. epi COVID PCR neg Flu neg CXR: Large left pleural effusion. Bilateral interstitial and airspace infiltrates versus edema MRSA nares neg 01/16 BCx NTD 01/17 BCx /2 +Staph auricularis (skin colonizer) 01/18 Resp cx +MDR CRE PsA (S-gent, I-colistin, R-polyB) (Intermediate to Zerbaxa, Resistant to Avycaz) 01/18 C.dif neg 01/18 CXR: Similar opacification of the left hemithorax likely representing combination of pleural effusion with atelectasis versus pneumonia/edema. Decreased but persistent hazy opacity throughout the right lung may represent edema versus infectious/inflammatory process. 01/20 BCx NTD 01/21 L thora 1050 cc removed, cx NTD 01/25 Wound cx from Gtube site +CRE Kleb pna (arnett-R) and MDR PsA (colonizers) 01/26 CT A/P: Limited exam, due to severe diffuse anasarca. Ascites. Bilateral pleural effusions. Basilar pulmonary atelectatic changes and consolidation. Gastrostomy. Atrophic left kidney with a nephroureteral stents again demonstrated. Possible retrococcygeal decubitus changes. Correlate with clinical findings, consider MRI if there is concern for sacral osteomyelitis. Right hip intertrochanteric fracture, also previously demonstrated. Left femoral dialysis catheter. Nonspecific right lobe liver lesion is unchanged, not well- demonstrated. ctasia bordering on aneurysmal dilatation and possible chronic dissection of the distal thoracic aorta, also previously described. JAVIER on CKD On previous admission Sep-Oct 2019 required HD for short period Going to start HD this admission again R/o COVID 01/14 COVID PCR neg 12/[address] [facility] per report H/o UTI 10/15 u/a wbc 30-40, nit neg, leuk +3; ucx ESBL P. mirablis, ESBL M. morganii //20 u/a wbc tnct, nit neg, leuk +3; ucx >100k MDR P. stuarti (S Ceftriaxone, Meropenem) 8/25 u/a wbc tnct, nit neg, leuk ; ucx >100k VRE 10/15/19 u/a wbc tnct; ucx >100k ESBL P. stuarti (S ertapenem, aztreonam) H/o transudative pleural effusion 11/28 Sp Thora (w: 169, PMN: 2%, L: 49% , LDH: 57, prot 2.5); cx Neg H/o PNA 10/15/19 Resp cx ESBL P. mirabilis, MDR P.a. (S only to Gent) 09/22 Resp cx + MDR PsA (S-gent; I-colistin; R-levofloxacin, Zosyn, angelo) 09/16/19 Sp cx ESBL P. mirablis H/o PPM site (pocket) infection and pocket abscess 2ry to S. epi-11/2018, sp >6weeks IV vancomycin 11/27 SP ABBIE: no evidence for vegetation on any of the valves 11/26/18 SP PPM removal: OR findings:The fibrous capsule enclosing the generator was then opened and there was a [id number] amount of yellowish fluid drainage. The generator was then removed.Atrial and ventricular leads were detached. The necrotic tissue of the pocket was then removed and the pocket was flushed with an antibiotic solution. Capsule, wound tissue and lead tip cx: Neg 2d echo: no vegetation seen US chest: 4.6 x 3.4 x 0.9 cm hypoechoic/anechoic area overlying left chest pacemaker power pack. This could represent either a discrete fluid collection or a focal area of very edematous tissue. Infected fluid pocket also possible. 11/18 Bcx 3/4 S. epi; 11/20 Bcx neg; 11/24 Bcx Neg; 11/27 Bcx Neg CAD s/p CABG GERD/gastritis Afib HTN Dysphagia sp GT Aortic dissection s/p repair 2017 S/p PPM Parkinson's Disease Schizophrenia Anxiety COPD Chronic resp failure s/p trach Hx of tracheal bleeding [place] resident ([facility]) VRE and MRSA colonized Plan: Cont to monitor off abx Pt needs emergent transfer out to [facility] for CT surgery evaluation given thoracic aortic aneurysm noted on CT imaging per Surgery recs, primary MD aware Trend Hg, GIB 03/21 SP daptomycin #12, Avycaz #16 for VRE and MDR Kleb bacteremia 2/1 SP tobramycin IV #10 for resistant UTI 03/10/20 SP edson #4 empiric, vanco #9 01/31 SP angelo/inh tobra #10 for pna 01/23 SP vanco IV #10 given CONS/GPC bacteremia 01/16 SP Zosyn #2 01/14 SP dex 10mg in ED 12/10 SP IV Gentamycin #10 12/07 SP Meropenem #10 12/01 SP IV Vancomycin #5 11/28 Sp Cefepime #2 and IV Gentamycin x1 Monitor CBC/CMP Monitor temp curve, hemodynamics Monitor resp status D/w RN Thank you for this consult. [facility] will continue to follow. Subjective Allergies: Coded Allergies: No Known Allergies (Unverified , 10/10/17) AF NAD on vent 50% PEEP 5 WBC 5.8 yesterday Objective Last 24 Hour Vital Signs Date Time Temp Pulse Resp B/P (MAP) Pulse Ox O2 Delivery O2 Flow Rate FiO2 03/29/20 07:28 61 16 100 03/29/20 05:07 85 143/75 03/29/20 04:00 81 03/29/20 04:00 85 03/29/20 04:00 Mechanical Ventilator 03/29/20 04:00 70 03/29/20 04:00 97.7 72 17 143/75 (97) 100 72 03/29/20 03:42 72 17 100 03/29/20 00:00 70 03/29/20 00:00 67 03/29/20 00:00 Mechanical Ventilator 03/28/20 23:59 98.4 68 16 132/59 (83) 97 68 03/28/20 23:21 70 15 100 03/28/20 21:16 72 135/65 03/28/20 20:00 72 03/28/20 20:00 70 03/28/20 20:00 98.6 72 17 135/65 (88) 95 72 03/28/20 20:00 Mechanical Ventilator 03/28/20 19:37 67 17 100 03/28/20 16:00 97.1 76 19 139/55 (83) 96 76 03/28/20 16:00 Mechanical Ventilator 03/28/20 16:00 100 03/28/20 15:41 62 03/28/20 15:03 67 17 100 03/28/20 14:51 64 139/55 03/28/20 12:00 98.1 67 17 138/61 (86) 92 67 03/28/20 12:00 100 03/28/20 12:00 Mechanical Ventilator 03/28/20 11:41 70 03/28/20 11:18 71 19 100 Height (Feet): 5 Height (Inches): 3.00 Weight (Pounds): 128 Gen: NAD HEENT: NCAT, trach Pulm: BL chest rise on vent Abd: Soft, NTND, +PEG Ext: No c/c/e Skin: No visible rashes Neuro: Awake, minimally interactive Lines: R chest Permacath dressing c/d/i Current Medications Medications (Trade) Dose Ordered Sig/Penny Route PRN Reason Start Time Stop Time Status Last Admin Dose Admin Acetaminophen (Tylenol) 650 mg Q6H PRN GT Mild Pain (Pain Scale 1-3) 03/02/20 22:30 04/01/20 22:29 03/29/20 03:43 Acetaminophen (Tylenol) 650 mg Q6H PRN GT Temp >100.5 03/03/20 03:00 04/01/20 22:29 03/23/20 21:49 Aspirin (ASA) 81 mg DAILY GT 03/07/20 09:00 04/21/20 08:59 03/28/20 08:44 Carvedilol (Coreg) 6.25 mg EVERY 8 HOURS GT 03/20/20 22:00 04/13/20 20:59 03/29/20 05:07 Chlorhexidine Gluconate (Ling-Hex 2%) 1 applic DAILY@1999 TOPIC 03/03/20 20:00 06/01/20 19:59 03/28/20 20:32 Dextrose (Dextrose 50%) 25 ml Q30M PRN IV Hypoglycemia 03/15/20 07:30 06/13/20 07:29 Dextrose (Dextrose 50%) 50 ml Q30M PRN IV Hypoglycemia 03/15/20 07:30 06/13/20 07:29 Hydralazine HCl (Apresoline) 25 mg Q6H PRN GT For High Blood Pressure 03/02/20 22:00 05/31/20 21:59 Hydrocortisone (Anusol HC) 25 mg Q12HR RECTAL 03/23/20 21:00 06/21/20 08:59 03/29/20 08:36 Hydromorphone HCl (Dilaudid) 0.5 mg Q4H PRN IVP For Pain 03/26/20 19:30 04/02/20 19:29 03/29/20 08:37 Loperamide HCl (Imodium) 2 mg Q6H PRN GT Diarrhea 03/06/20 12:45 04/05/20 12:44 03/06/20 13:01 Metoclopramide HCl (Reglan) 5 mg Q8HR IVP 03/04/20 11:45 04/03/20 11:44 03/29/20 05:07 Midodrine (Pro-Amatine) 10 mg EVERY 8 HOURS GT 03/17/20 22:00 06/01/20 12:59 03/24/20 13:02 Pantoprazole (Protonix) 40 mg EVERY 12 HOURS IVP 03/04/20 21:00 04/02/20 20:59 03/29/20 08:38 Polyethylene Glycol (Miralax) 17 gm BEDTIME PRN GT Constipation 03/02/20 22:00 04/01/20 21:59 Sodium Hypochlorite (Dakin's Quarter Strength) 1 applic DAILY TOPIC 03/04/20 09:00 04/03/20 08:59 03/29/20 08:39 Sucralfate (Carafate) 1 gm EVERY 6 HOURS GT 03/17/20 18:00 06/09/20 08:59 03/29/20 05:07 Tramadol HCl (Ultram) 50 mg Q6H PRN ORAL Moderate Pain (Pain Scale 4-6) 03/26/20 19:30 04/02/20 19:29 03/27/20 21:21 Zinc Oxide (Zinc Oxide) 1 applic Q8HR TOPIC 03/25/20 22:00 06/22/20 17:59 03/29/20 05:08 Ro Pack M.D. Mar 29, 2020 09:00
--- NOTE | 2020-03-29 09:28 | General Progress Note ---
Subjective Constitutional: Denies: no symptoms, chills, diaphoresis, fever, malaise, weakness, other HEENT: Denies: no symptoms, eye pain, blurred vision, tearing, double vision, ear pain, ear discharge, nose pain, nose congestion, throat pain, throat swelling, mouth pain, mouth swelling, other Respiratory: Denies: no symptoms, cough, orthopnea, shortness of breath, SOB with excertion, SOB at rest, sputum, stridor, wheezing, other Genitourinary: Denies: no symptoms, burning, discharge, frequency, flank pain, hematuria, incontinence, pain, urgency, other Neurologic/Psychiatric: Denies: no symptoms, anxiety, depressed, emotional problems, headache, numbness, paresthesia, pre-existing deficit, seizure, tingling, tremors, weakness, other Endocrine: Denies: no symptoms, excessive sweating, flushing, intolerance to cold, intolerance to heat, increased hunger, increased thirst, increased urine, unexplained weight gain, unexplained weight loss, other Hematologic/Lymphatic: Denies: no symptoms, anemia, easy bleeding, easy bruising, other Allergies: Coded Allergies: No Known Allergies (Unverified , 10/10/17) Subjective 03/04 for 1 unit transfusion this am as hgb remains low, wbc better 03/05 egd was done did show large nonbleeding gastric ulcer, high tumor markers 03/06 nv, with davis overnight, bp remains stable, with occult + stool, roman Rn 03/09 nv, remains stable, on vanc/tobra/edson, meds reviewed, no bleeding 03/10 nv, on vent, no bleeding, receiving abx, no night sweats 03/11 nv, roman surgeon and pcp, with aortic dissection to transfer [facility] when stable 03/12 nv, labs reviewed, wbc 21, hgb 7.5, otherwise is comfortable 03/13 nv, labs noted, no bleeding, wbc 13, hgb improved, meds reviewed 03/15 nv, meds reviewed, labs noted, no bleeding, on vent 03/16 nv/tv, peg, meds noted, hgb remains stable, improved to 10 2/2 s/p egd, with gastric ulceration noted, hgb stable / labs noted, hgb 6.8, to get 1 unit prbc, meds reviewed 2/4 hgb 9.2, plt 78, no hemoptysis, is comfortable 03/20 labs reviewed, meds noted, no bleeding, dw rn 03/22 wound treatment, vent, with gtube, labs reviewed, dw rn 03/23 labs reviewed, meds noted, no bleeding, with gt 03/24 large bm overnight that was bloody, hgb 7.1, dw rn 03/25 labs pending this am, comfortable, nsr, meds noted 03/26 nv, vent, with gt, labs reviewed, hgb 8.8 03/27 nv, vent, labs reviewed, with gt, hgb stable 03/29 nv, vent, labs pending, meds reviewed, no bleeding Objective Last 24 Hour Vital Signs Date Time Temp Pulse Resp B/P (MAP) Pulse Ox O2 Delivery O2 Flow Rate FiO2 03/29/20 07:28 61 16 100 03/29/20 05:07 85 143/75 03/29/20 04:00 81 03/29/20 04:00 85 03/29/20 04:00 Mechanical Ventilator 03/29/20 04:00 70 03/29/20 04:00 97.7 72 17 143/75 (97) 100 72 03/29/20 03:42 72 17 100 03/29/20 00:00 70 03/29/20 00:00 67 03/29/20 00:00 Mechanical Ventilator 03/28/20 23:59 98.4 68 16 132/59 (83) 97 68 03/28/20 23:21 70 15 100 03/28/20 21:16 72 135/65 03/28/20 20:00 72 03/28/20 20:00 70 03/28/20 20:00 98.6 72 17 135/65 (88) 95 72 03/28/20 20:00 Mechanical Ventilator 03/28/20 19:37 67 17 100 03/28/20 16:00 97.1 76 19 139/55 (83) 96 76 03/28/20 16:00 Mechanical Ventilator 03/28/20 16:00 100 03/28/20 15:41 62 03/28/20 15:03 67 17 100 03/28/20 14:51 64 139/55 03/28/20 12:00 98.1 67 17 138/61 (86) 92 67 03/28/20 12:00 100 03/28/20 12:00 Mechanical Ventilator 03/28/20 11:41 70 03/28/20 11:18 71 19 100 Intake and Output 03/28/20 03/29/20 19:00 07:00 Intake Total 640 ml 545 ml Output Total 2000 ml 100 ml Balance -1360 ml 445 ml Intake Free Water 220 ml 160 ml Tube Feeding 420 ml 385 ml Output Urine Total 100 ml Other 2000 ml Height (Feet): 5 Height (Inches): 3.00 Weight (Pounds): 128 Objective Physical Exam: Vitals: reviewed General: NAD HEENT: nc, at Neck: supple ++trach/vent Chest: clear breath sounds bilaterally Cardiovascular: RRR, no s3, s4 Abdomen: soft, nontender, nd +gtube Extremities: no cce, normal range of motion Neuro: alert Assessment/Plan Assessment/Plan: Im covering # Leukocytosis, now with likely bacteremia, as per ID care --> Cxr: : Large left abiola consolidation/effusion --> wbc 30-->40-->27->30->29-->35->32-->28-->21->10.2-->6.6 --> ABX angelo/vanc-->tobra/edson/vanc-->dapto/ceftazadine->off abx --> smear reviewed --> ID recs are noted # Anemia of chronic disease due to underlying chronic medical issues, mul tifactorial --> Anemia workup has been reviewed, cw acd --> No evidence of hemolysis is noted, peripheral smear has been reviewed. --> Hgb goal >7. Transfuse prn. --> Epogen required in prior --> Medications have been reviewed --> low threshold for gi evaluation in case has occult + --> hgb 1.9-->5-->7.1-->8.8-->8.1->7.5-> 8.2-->6.8-->9.2-->8.4->7.7-->7.1-->8.8- >8.7 --> 1 unit prbc10/17, 2 units 01/15, 03/02, 03/18, 03/24 --> gi eval as needed # Elevated tumor markers, cea and ca 19.9 --> reviewed prior 01/27/20 cat scan a/p --> no masses noted, hold off further extensive w/u # Thrombocytopenia likely reactive v medication induced --> plt 200-->129->91-->86->100->78-->86-->87-->125->135 --> transfuse as needed --> r/o dic, has been ruled out --> anticoag as needed # Coagulopathy with inr 1.5 --> consider vit k/ffp as needed preprocedure --> labs noted # Aortic dissection as seen on Ct ==> when stable, consider transfer hloc # JAVIER initially >2 --> on ivfs --> per renal # Elevated d-dimer, likely infection related --> venous duplex prior neg --> in prior neg # Dysphagia s/p peg --> as per gi # Thoracic aortic dissection --> s/p repair early 2017 # Chronic Resp failure -> s/p trach/vent # Psychiatric history on ativan/haldol # [place] resident # Dvt ppx --> scds The timing of this note does not necessarily reflect the time of the patient was seen. Greatly appreciate consultation. Evan Muhammad MD Mar 29, 2020 09:28
--- NOTE | 2020-03-29 09:51 | Pulmonology Progress Note ---
Subjective ROS Limited/Unobtainable: Yes Interval Events: none major reported per nursing Constitutional: Reports: fever, other - resolved HEENT: Repors: no symptoms Respiratory: Reports: no symptoms Cardiovascular: Reports: no symptoms Gastrointestinal/Abdominal: Reports: diarrhea Allergies: Coded Allergies: No Known Allergies (Unverified , 10/10/17) All Systems: reviewed and negative except above Objective Last 24 Hour Vital Signs Date Time Temp Pulse Resp B/P (MAP) Pulse Ox O2 Delivery O2 Flow Rate FiO2 03/29/20 07:28 61 16 100 03/29/20 05:07 85 143/75 03/29/20 04:00 81 03/29/20 04:00 85 03/29/20 04:00 Mechanical Ventilator 03/29/20 04:00 70 03/29/20 04:00 97.7 72 17 143/75 (97) 100 72 03/29/20 03:42 72 17 100 03/29/20 00:00 70 03/29/20 00:00 67 03/29/20 00:00 Mechanical Ventilator 03/28/20 23:59 98.4 68 16 132/59 (83) 97 68 03/28/20 23:21 70 15 100 03/28/20 21:16 72 135/65 03/28/20 20:00 72 03/28/20 20:00 70 03/28/20 20:00 98.6 72 17 135/65 (88) 95 72 03/28/20 20:00 Mechanical Ventilator 03/28/20 19:37 67 17 100 03/28/20 16:00 97.1 76 19 139/55 (83) 96 76 03/28/20 16:00 Mechanical Ventilator 03/28/20 16:00 100 03/28/20 15:41 62 03/28/20 15:03 67 17 100 03/28/20 14:51 64 139/55 03/28/20 12:00 98.1 67 17 138/61 (86) 92 67 03/28/20 12:00 100 03/28/20 12:00 Mechanical Ventilator 03/28/20 11:41 70 03/28/20 11:18 71 19 100 Intake and Output 03/28/20 03/29/20 19:00 07:00 Intake Total 640 ml 545 ml Output Total 2000 ml 100 ml Balance -1360 ml 445 ml Intake Free Water 220 ml 160 ml Tube Feeding 420 ml 385 ml Output Urine Total 100 ml Other 2000 ml General Appearance: no acute distress HEENT: atraumatic Respiratory: lungs clear Cardiovascular: normal rate, regular rhythm Extremities: other - edema bilateral Current Medications Medications (Trade) Dose Ordered Sig/Penny Route PRN Reason Start Time Stop Time Status Last Admin Dose Admin Acetaminophen (Tylenol) 650 mg Q6H PRN GT Mild Pain (Pain Scale 1-3) 03/02/20 22:30 04/01/20 22:29 03/29/20 03:43 Acetaminophen (Tylenol) 650 mg Q6H PRN GT Temp >100.5 03/03/20 03:00 04/01/20 22:29 03/23/20 21:49 Aspirin (ASA) 81 mg DAILY GT 03/07/20 09:00 04/21/20 08:59 03/28/20 08:44 Carvedilol (Coreg) 6.25 mg EVERY 8 HOURS GT 03/20/20 22:00 04/13/20 20:59 03/29/20 05:07 Chlorhexidine Gluconate (Ling-Hex 2%) 1 applic DAILY@2000 TOPIC 03/03/20 20:00 06/01/20 19:59 03/28/20 20:32 Dextrose (Dextrose 50%) 25 ml Q30M PRN IV Hypoglycemia 03/15/20 07:30 06/13/20 07:29 Dextrose (Dextrose 50%) 50 ml Q30M PRN IV Hypoglycemia 03/15/20 07:30 06/13/20 07:29 Hydralazine HCl (Apresoline) 25 mg Q6H PRN GT For High Blood Pressure 03/02/20 22:00 05/31/20 21:59 Hydrocortisone (Anusol HC) 25 mg Q12HR RECTAL 03/23/20 21:00 06/21/20 08:59 03/29/20 08:36 Hydromorphone HCl (Dilaudid) 0.5 mg Q4H PRN IVP For Pain 03/26/20 19:30 04/02/20 19:29 03/29/20 08:37 Loperamide HCl (Imodium) 2 mg Q6H PRN GT Diarrhea 03/06/20 12:45 04/05/20 12:44 03/06/20 13:01 Metoclopramide HCl (Reglan) 5 mg Q8HR IVP 03/04/20 11:45 04/03/20 11:44 03/29/20 05:07 Midodrine (Pro-Amatine) 10 mg EVERY 8 HOURS GT 03/17/20 22:00 06/01/20 12:59 03/24/20 13:02 Pantoprazole (Protonix) 40 mg EVERY 12 HOURS IVP 03/04/20 21:00 04/02/20 20:59 03/29/20 08:38 Polyethylene Glycol (Miralax) 17 gm BEDTIME PRN GT Constipation 03/02/20 22:00 04/01/20 21:59 Sodium Hypochlorite (Dakin's Quarter Strength) 1 applic DAILY TOPIC 03/04/20 09:00 04/03/20 08:59 03/29/20 08:39 Sucralfate (Carafate) 1 gm EVERY 6 HOURS GT 03/17/20 18:00 06/09/20 08:59 03/29/20 05:07 Tramadol HCl (Ultram) 50 mg Q6H PRN ORAL Moderate Pain (Pain Scale 4-6) 03/26/20 19:30 04/02/20 19:29 03/27/20 21:21 Zinc Oxide (Zinc Oxide) 1 applic Q8HR TOPIC 03/25/20 22:00 06/22/20 17:59 03/29/20 05:08 Assessment/Plan Assessment/Plan 1. Chronic respiratory failure. - CT chest/abd/pelv: improving pleural effusion 2. Mechanical ventilation. - desaturated overnight and now FiO2 70% -> titrate FiO2 down slowly - suction secretions as needed 3. Chronic tracheostomy. 4. Chronic G-tube. 5. Anemia. - s/p transfusion - stool OB positive (03/02, 03/03, 03/22) - off anticoags 6. Renal failure. 7. Leukocytosis and sepsis. - WBC now wnl 8. Sepsis UTI 9. Gram positive cocci bacteremia - f/u BCx negative for growth 10. COVID-19 negative 11. Diarrhea - C. diff neg 12. Hypoglycemia - resolved 13. Bradycardia - no urgent indication for pacemaker per cardio 14. Gastric ulcer - on PPI -No active bleeding - GI following 15. Pleural effusion - small; insufficient volume for safe thoracentesis 16. thoracic aortic aneurysm - noted on CT imaging - pt needs emergent transfer out to [facility] for CT surgery evaluation, primary MD aware - Pt might not be a candidate for TAA repair 17. Ascites - s/p paracentesis (2/3), 2.3L out 18. DVT ppx - on SCD -Venous duplex ultrasound of legs negative for DVT (03/25) The care of this patient was discussed with my supervising physician Time spent for this encounter was approximately 31 minutes Cruz Wilson Mar 29, 2020 09:51
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
[2020-03-29] MEDS: traMADol 50mg tab ORAL PRN (11:48)
[2020-03-29 12:00] VITALS: BP 122/57
--- NOTE | 2020-03-29 13:49 | NUR ---
NURSE NOTES: Midodrine nonadministered because BP is 135/63 (hold med if SBP >110 per eMAR).
--- NOTE | 2020-03-29 15:15 | Nephrology Progress Note ---
Assessment/Plan Problem List: (1) Renal failure (ARF), acute on chronic (2) Anemia (3) Hyponatremia (4) Respiratory failure Assessment (1) JAVIER (acute kidney injury) (2) Renal failure (ARF), acute on chronic (3) Feeding by G-tube (4) Tracheostomy in place (5) Electrolyte imbalance, hyponatremia (6) Anemia, severe (7) Respiratory failure, acute and chronic (8) history of elevated lipase, pancreatitis (9) Elevated troponin I (10) Sepsis Plan March 29: Dialyzed yesterday. No CHEM panel drawn today. We will continue to monitor renal parameters. Continue per consultants. March 28: Due for dialysis today. Labs reviewed. Stable from renal standpoint of view. March 27: Due for dialysis tomorrow. Labs reviewed. Medication list reviewed. Continue per current management. March 26: Last dialyzed March 24. Labs reviewed. Low phosphorus replaced. Continue to monitor renal parameters. Dialysis as needed. March 25: Dialyzed yesterday. Labs reviewed. Low phosphorus replaced. Continue per current management. Hemoglobin higher. March 24: Labs reviewed. Due for dialysis today. Continue per current management. Hemoglobin lower. Transfusion per document imaging specialist. March 23: Labs reviewed. Dialyzed yesterday. Next dialysis tomorrow. Anemia management per document imaging specialist. March 22: Labs reviewed. Due for dialysis today. Discussed with RN. Agree with discontinuation of the Norman catheter. Hemoglobin lower. Transfusion per document imaging specialist. March 21: Labs reviewed. Will arrange for dialysis tomorrow. Continue per consultants. Will hold phosphorus binders at this time. March 20: Labs reviewed. Patient was dialyzed yesterday. Electrolyte abnormalities corrected. Continue per current management. March 19: Due for dialysis today. Abnormal labs noted. All will be corrected after dialysis. March 18: Labs reviewed. Will dialyze tomorrow. Patient being transfused today. Patient due for abdominal paracentesis. We will keep the Norman in. Continue to monitor renal parameters and dialyze as needed. March 17: No CHEM panel done today. CBC reviewed. Hemoglobin is lowering. Dialyzed yesterday. Will check lab tomorrow. Continue per consultants. March 16: Labs reviewed. Due for dialysis today. Hemoglobin 10.2 today. Continue to monitor renal parameters. March 15: Labs reviewed. Dialyzed March 13. Due for dialysis March 16. Hemoglobin lower. 1 unit of packed RBCs ordered. Per orders. March 14: No labs drawn today. Dialyzed yesterday. Full code. Will check lab tomorrow. Dialysis as needed. March 13: Labs reviewed. Due for dialysis today. Patient remains full code. Continue per current management. March 12: Labs reviewed. Dialyzed yesterday. Due for dialysis tomorrow. Discussed with RN. Patient full code. Continue per current management. March 11: Labs reviewed. Dialyzed this morning. Phosphorus binders dose adjusted. Continue per consultants. Continue to monitor renal parameters. CT: Extensive thoracoabdominal aortic dissection March 10: Labs reviewed. Will order dialysis tomorrow. Phosphorus binders added. Continue per consultants. March 09: No chemistry panel done today. Patient dialyzed yesterday. On dextrose 10% for hypoglycemia. We will check labs tomorrow. Dialysis as needed. March 08: Labs reviewed. Will order dialysis today. Blood sugar low. D10 50 cc an hour started. Continue as is. March 07: Labs reviewed. Dialyzed March 05 and March 06. Continue to monitor renal parameters and hemoglobin. Abnormal electrolytes addressed. IV fluids stopped. Per orders. March 06: Labs reviewed. Dialyzed yesterday. Will reorder dialysis for today. Continue to monitor renal parameters. Hemoglobin 8.4. Patient full code. March 05: Labs reviewed. Patient did not receive dialysis until this morning. Proceed with dialysis. Continue to monitor renal parameters and hemoglobin and hematocrit. March 04: Labs reviewed. Hemoglobin lower. Patient actively bleeding. Was not dialyzed yesterday. Due for GI endoscopy. Continue fluid challenge. Transfusion as needed. Dialysis today. March 03: Labs reviewed. Dialysis ordered. Blood pressure medication all discontinued due to hypotensive state. Albumin bolus given. Continue to monitor renal parameters. Medication list reviewed. Midodrin for low blood pressure ordered Subjective ROS Limited/Unobtainable: Yes Objective Objective Last 24 Hour Vital Signs Date Time Temp Pulse Resp B/P (MAP) Pulse Ox O2 Delivery O2 Flow Rate FiO2 03/29/20 13:49 68 135/63 03/29/20 12:00 64 03/29/20 12:00 97.7 66 27 122/57 (78) 96 66 03/29/20 12:00 50 03/29/20 12:00 Mechanical Ventilator 03/29/20 11:06 58 14 100 03/29/20 08:00 97.7 57 14 115/57 (76) 99 57 2/14/21 08:00 50 03/29/20 08:00 Mechanical Ventilator 03/29/20 07:43 58 03/29/20 07:28 61 16 100 03/29/20 05:07 85 143/75 03/29/20 04:00 81 03/29/20 04:00 85 03/29/20 04:00 Mechanical Ventilator 03/29/20 04:00 70 03/29/20 04:00 97.7 72 17 143/75 (97) 100 72 03/29/20 03:42 72 17 100 03/29/20 00:00 70 03/29/20 00:00 67 03/29/20 00:00 Mechanical Ventilator 03/28/20 23:59 98.4 68 16 132/59 (83) 97 68 03/28/20 23:21 70 15 100 03/28/20 21:16 72 135/65 03/28/20 20:00 72 03/28/20 20:00 70 03/28/20 20:00 98.6 72 17 135/65 (88) 95 72 03/28/20 20:00 Mechanical Ventilator 03/28/20 19:37 67 17 100 03/28/20 16:00 97.1 76 19 139/55 (83) 96 76 03/28/20 16:00 Mechanical Ventilator 03/28/20 16:00 100 03/28/20 15:41 62 Intake and Output 03/28/20 03/29/20 19:00 07:00 Intake Total 640 ml 545 ml Output Total 2000 ml 100 ml Balance -1360 ml 445 ml Intake Free Water 220 ml 160 ml Tube Feeding 420 ml 385 ml Output Urine Total 100 ml Other 2000 ml Current Medications Medications (Trade) Dose Ordered Sig/Penny Route PRN Reason Start Time Stop Time Status Last Admin Dose Admin Acetaminophen (Tylenol) 650 mg Q6H PRN GT Mild Pain (Pain Scale 1-3) 03/02/20 22:30 04/01/20 22:29 03/29/20 03:43 Acetaminophen (Tylenol) 650 mg Q6H PRN GT Temp >100.5 03/03/20 03:00 04/01/20 22:29 03/23/20 21:49 Aspirin (ASA) 81 mg DAILY GT 03/07/20 09:00 04/21/20 08:59 03/28/20 08:44 Carvedilol (Coreg) 6.25 mg EVERY 8 HOURS GT 03/20/20 22:00 04/13/20 20:59 03/29/20 13:49 Chlorhexidine Gluconate (Ling-Hex 2%) 1 applic DAILY@1999 TOPIC 03/03/20 20:00 06/01/20 19:59 03/28/20 20:32 Dextrose (Dextrose 50%) 25 ml Q30M PRN IV Hypoglycemia 03/15/20 07:30 06/13/20 07:29 Dextrose (Dextrose 50%) 50 ml Q30M PRN IV Hypoglycemia 03/15/20 07:30 06/13/20 07:29 Hydralazine HCl (Apresoline) 25 mg Q6H PRN GT For High Blood Pressure 03/02/20 22:00 05/31/20 21:59 Hydrocortisone (Anusol HC) 25 mg Q12HR RECTAL 03/23/20 21:00 06/21/20 08:59 03/29/20 08:36 Hydromorphone HCl (Dilaudid) 0.5 mg Q4H PRN IVP For Pain 03/26/20 19:30 04/02/20 19:29 03/29/20 08:37 Loperamide HCl (Imodium) 2 mg Q6H PRN GT Diarrhea 03/06/20 12:45 04/05/20 12:44 03/06/20 13:01 Metoclopramide HCl (Reglan) 5 mg Q8HR IVP 03/04/20 11:45 04/03/20 11:44 03/29/20 13:49 Midodrine (Pro-Amatine) 10 mg EVERY 8 HOURS GT 03/17/20 22:00 06/01/20 12:59 03/24/20 13:02 Pantoprazole (Protonix) 40 mg EVERY 12 HOURS IVP 03/04/20 21:00 04/02/20 20:59 03/29/20 08:38 Polyethylene Glycol (Miralax) 17 gm BEDTIME PRN GT Constipation 03/02/20 22:00 04/01/20 21:59 Sodium Hypochlorite (Dakin's Quarter Strength) 1 applic DAILY TOPIC 03/04/20 09:00 04/03/20 08:59 03/29/20 08:39 Sucralfate (Carafate) 1 gm EVERY 6 HOURS GT 03/17/20 18:00 06/09/20 08:59 03/29/20 11:43 Tramadol HCl (Ultram) 50 mg Q6H PRN ORAL Moderate Pain (Pain Scale 4-6) 03/26/20 19:30 04/02/20 19:29 03/29/20 11:48 Zinc Oxide (Zinc Oxide) 1 applic Q8HR TOPIC 03/25/20 22:00 06/22/20 17:59 03/29/20 13:49 Height (Feet): 5 Height (Inches): 3.00 Weight (Pounds): 128 General Appearance: no apparent distress EENT: other - Trach to vent Cardiovascular: normal rate, arrhythmia Respiratory/Chest: decreased breath sounds Abdomen: distended Johnny Houston MD Mar 29, 2020 15:15
[2020-03-29 16:00] VITALS: BP 124/58
--- NOTE | 2020-03-29 19:28 | NUR ---
NURSE HAND-OFF REPORT: Important Events on Shift: stable Patient Status: Diet: Pending Orders: Pending Results/Labs: Pending MD notification: Latest Vital Signs: Temperature 97.7 , Pulse 58 , B/P 124 /58 , Respiratory Rate 16 , O2 SAT 94 , Mechanical Ventilator, O2 Flow Rate . Vital Sign Comment: EKG Rhythm: Sinus Rhythm Rhythm change?: N Notified?: N -Dr Екатерина HATFIELD Response: No New Orders Received Latest Chavarria Fall Score: 60 Fall Risk: High Risk Safety Measures: Call light Within Reach, Bed Alarm Zone 2, Side Rails Side Rails x3, Bed position Low and Locked. Fall Precautions: Yellow Socks Report given to ERASMO Abdul.
--- NOTE | 2020-03-29 19:40 | NUR ---
NURSE NOTES: Receive patient from ERASMO Kaba. patient is in bed AO x1-2. sinus rhythm on the monitor. trach to vent AC 14 TV 500 FiO2 65% PEEP 5. Gtube in place and tube feeding running Nepro @35ml/hr. purewick in place. bed to lowest position and locked. call light within easy reach. side rails up x2. will continue plan of care.
[2020-03-29 20:00] VITALS: BP 129/66
[2020-03-29] MEDS: Dyna-Hex 2% Top Sol 2oz TOPIC SCH (21:42)
[2020-03-30] VITALS: BP 120/58
--- NOTE | 2020-03-30 | NUR ---
NURSE NOTES: bed bath performed. wound dressing changed. performed oral care. vital signs stable
[2020-03-30] MEDS: Sucralfate 1gm tab GT SCH ×5 (00:22→23:21)
[2020-03-30 04:00] VITALS: BP 125/63
[2020-03-30] MEDS: Metoclopramide 10mg/2ml Inj IVP SCH ×3 (05:47→21:49)
[2020-03-30] MEDS: Zinc Oxide Oint 2oz TOPIC SCH ×3 (05:49→21:50)
[2020-03-30] MEDS: Carvedilol 6.25mg Tab GT SCH ×3 (05:49→21:49)
[2020-03-30] MEDS: Midodrine 10mg tab GT SCH ×3 (05:49→21:49)
[2020-03-30] MEDS: Hydromorphone 0.5mg/0.5ml inj IVP PRN ×4 (05:59→22:56)
--- NOTE | 2020-03-30 06:14 | Hematology/Onc Progress Note ---
Assessment/Plan Assessment/Plan Im covering # Leukocytosis, now with likely bacteremia, as per ID care --> Cxr: : Large left abiola consolidation/effusion --> wbc 30-->40-->27->30->29-->35->32-->28-->21->10.2-->6.6 --> ABX angelo/vanc-->tobra/edson/vanc-->dapto/ceftazadine->off abx --> smear reviewed --> ID recs are noted # Anemia of chronic disease due to underlying chronic medical issues, multifactorial --> Anemia workup has been reviewed, cw acd --> No evidence of hemolysis is noted, peripheral smear has been reviewed. --> Hgb goal >7. Transfuse prn. --> Epogen required in prior --> Medications have been reviewed --> low threshold for gi evaluation in case has occult + --> hgb 1.9-->5-->7.1-->8.8-->8.1->7.5-> 8.2-->6.8-->9.2-->8.4->7.7-->7.1-->8.8->8.7 --> 1 unit prbc1/, 2 units 01/15, 03/02, 03/18, 03/24 --> gi eval as needed # Elevated tumor markers, cea and ca 19.9 --> reviewed prior 01/27/20 cat scan a/p --> no masses noted, hold off further extensive w/u # Thrombocytopenia likely reactive v medication induced --> plt 200-->129->91-->86->100->78-->86-->87-->125->135 --> transfuse as needed --> r/o dic, has been ruled out --> anticoag as needed # Coagulopathy with inr 1.5 --> consider vit k/ffp as needed preprocedure --> labs noted # Aortic dissection as seen on Ct ==> when stable, consider transfer hloc # JAVIER initially >2 --> on ivfs --> per renal # Elevated d-dimer, likely infection related --> venous duplex prior neg --> in prior neg # Dysphagia s/p peg --> as per gi # Thoracic aortic dissection --> s/p repair early 2017 # Chronic Resp failure -> s/p trach/vent # Psychiatric history on ativan/haldol # [place] resident # Dvt ppx --> scds The timing of this note does not necessarily reflect the time of the patient was seen. Greatly appreciate consultation. Subjective Allergies: Coded Allergies: No Known Allergies (Unverified , 10/10/17) All Systems: reviewed and negative except above Subjective 03/04 for 1 unit transfusion this am as hgb remains low, wbc better 03/05 egd was done did show large nonbleeding gastric ulcer, high tumor markers 03/06 nv, with davis overnight, bp remains stable, with occult + stool, roman Rn 03/09 nv, remains stable, on vanc/tobra/edson, meds reviewed, no bleeding 03/10 nv, on vent, no bleeding, receiving abx, no night sweats 03/11 nv, dw surgeon and pcp, with aortic dissection to transfer [facility] when stable 03/12 nv, labs reviewed, wbc 21, hgb 7.5, otherwise is comfortable 03/13 nv, labs noted, no bleeding, wbc 13, hgb improved, meds reviewed 03/15 nv, meds reviewed, labs noted, no bleeding, on vent 03/16 nv/tv, peg, meds noted, hgb remains stable, improved to 10 / s/p egd, with gastric ulceration noted, hgb stable 03/18 labs noted, hgb 6.8, to get 1 unit prbc, meds reviewed 03/19 hgb 9.2, plt 78, no hemoptysis, is comfortable 03/20 labs reviewed, meds noted, no bleeding, roman rn 03/22 wound treatment, vent, with gtube, labs reviewed, roman rn 03/23 labs reviewed, meds noted, no bleeding, with gt 03/24 large bm overnight that was bloody, hgb 7.1, roman rn 03/25 labs pending this am, comfortable, nsr, meds noted 03/26 nv, vent, with gt, labs reviewed, hgb 8.8 03/27 nv, vent, labs reviewed, with gt, hgb stable 03/29 nv, vent, labs pending, meds reviewed, no bleeding 03/30 nv, t/v, with gt feeds, labs reviewed, meds noted Objective Objective Current Medications Medications (Trade) Dose Ordered Sig/Penny Route PRN Reason Start Time Stop Time Status Last Admin Dose Admin Acetaminophen (Tylenol) 650 mg Q6H PRN GT Mild Pain (Pain Scale 1-3) 03/02/20 22:30 04/01/20 22:29 03/29/20 03:43 Acetaminophen (Tylenol) 650 mg Q6H PRN GT Temp >100.5 03/03/20 03:00 04/01/20 22:29 03/23/20 21:49 Aspirin (ASA) 81 mg DAILY GT 03/07/20 09:00 04/21/20 08:59 03/28/20 08:44 Carvedilol (Coreg) 6.25 mg EVERY 8 HOURS GT 03/20/20 22:00 04/13/20 20:59 03/30/20 05:49 Chlorhexidine Gluconate (Ling-Hex 2%) 1 applic DAILY@2000 TOPIC 03/03/20 20:00 06/01/20 19:59 03/29/20 21:42 Dextrose (Dextrose 50%) 25 ml Q30M PRN IV Hypoglycemia 03/15/20 07:30 06/13/20 07:29 Dextrose (Dextrose 50%) 50 ml Q30M PRN IV Hypoglycemia 03/15/20 07:30 06/13/20 07:29 Hydralazine HCl (Apresoline) 25 mg Q6H PRN GT For High Blood Pressure 03/02/20 22:00 05/31/20 21:59 Hydrocortisone (Anusol HC) 25 mg Q12HR RECTAL 03/23/20 21:00 06/21/20 08:59 03/29/20 21:42 Hydromorphone HCl (Dilaudid) 0.5 mg Q4H PRN IVP For Pain 03/26/20 19:30 04/02/20 19:29 03/30/20 05:59 Loperamide HCl (Imodium) 2 mg Q6H PRN GT Diarrhea 03/06/20 12:45 04/05/20 12:44 03/06/20 13:01 Metoclopramide HCl (Reglan) 5 mg Q8HR IVP 03/04/20 11:45 04/03/20 11:44 03/30/20 05:47 Midodrine (Pro-Amatine) 10 mg EVERY 8 HOURS GT 03/17/20 22:00 06/01/20 12:59 03/24/20 13:02 Pantoprazole (Protonix) 40 mg EVERY 12 HOURS IVP 03/04/20 21:00 04/02/20 20:59 03/29/20 21:42 Polyethylene Glycol (Miralax) 17 gm BEDTIME PRN GT Constipation 03/02/20 22:00 04/01/20 21:59 Sodium Hypochlorite (Dakin's Quarter Strength) 1 applic DAILY TOPIC 03/04/20 09:00 04/03/20 08:59 03/29/20 08:39 Sucralfate (Carafate) 1 gm EVERY 6 HOURS GT 03/17/20 18:00 06/09/20 08:59 03/30/20 05:47 Tramadol HCl (Ultram) 50 mg Q6H PRN ORAL Moderate Pain (Pain Scale 4-6) 03/26/20 19:30 04/02/20 19:29 03/29/20 11:48 Zinc Oxide (Zinc Oxide) 1 applic Q8HR TOPIC 03/25/20 22:00 06/22/20 17:59 03/30/20 05:49 Last 24 Hour Vital Signs Date Time Temp Pulse Resp B/P (MAP) Pulse Ox O2 Delivery O2 Flow Rate FiO2 03/30/20 05:49 64 125/63 03/30/20 05:00 60 16 100 03/30/20 04:00 65 03/30/20 04:00 64 03/30/20 04:00 Mechanical Ventilator 03/30/20 04:00 98.1 61 14 125/63 (83) 100 61 03/30/20 03:00 65 18 100 03/30/20 00:10 50 03/30/20 00:00 97.9 58 14 120/58 (78) 100 58 03/30/20 00:00 59 03/30/20 00:00 Mechanical Ventilator 03/29/20 23:25 64 14 100 03/29/20 21:43 65 129/66 03/29/20 21:00 64 14 100 03/29/20 20:00 65 03/29/20 20:00 50 03/29/20 20:00 97.5 60 14 129/66 (87) 100 60 03/29/20 20:00 Mechanical Ventilator 03/29/20 19:00 61 15 100 03/29/20 16:18 58 03/29/20 16:00 Mechanical Ventilator 03/29/20 16:00 50 03/29/20 16:00 97.7 60 16 124/58 (80) 94 60 03/29/20 15:20 66 19 100 03/29/20 13:49 68 135/63 03/29/20 12:00 64 03/29/20 12:00 97.7 66 27 122/57 (78) 96 66 03/29/20 12:00 50 03/29/20 12:00 Mechanical Ventilator 03/29/20 11:06 58 14 100 03/29/20 08:00 97.7 57 14 115/57 (76) 99 57 03/29/20 08:00 50 03/29/20 08:00 Mechanical Ventilator 03/29/20 07:43 58 03/29/20 07:28 61 16 100 03/29/20 05:07 85 143/75 03/29/20 04:00 81 03/29/20 04:00 85 03/29/20 04:00 Mechanical Ventilator 03/29/20 04:00 70 03/29/20 04:00 97.7 72 17 143/75 (97) 100 72 03/29/20 03:42 72 17 100 03/29/20 00:00 70 03/29/20 00:00 67 03/29/20 00:00 Mechanical Ventilator 03/28/20 23:59 98.4 68 16 132/59 (83) 97 68 03/28/20 23:21 70 15 100 03/28/20 21:16 72 135/65 03/28/20 20:00 72 03/28/20 20:00 70 03/28/20 20:00 98.6 72 17 135/65 (88) 95 72 03/28/20 20:00 Mechanical Ventilator 03/28/20 19:37 67 17 100 03/28/20 16:00 97.1 76 19 139/55 (83) 96 76 03/28/20 16:00 Mechanical Ventilator 03/28/20 16:00 100 03/28/20 15:41 62 03/28/20 15:03 67 17 100 03/28/20 14:51 64 139/55 03/28/20 12:00 98.1 67 17 138/61 (86) 92 67 03/28/20 12:00 100 03/28/20 12:00 Mechanical Ventilator 03/28/20 11:41 70 03/28/20 11:18 71 19 100 03/28/20 08:25 63 03/28/20 08:00 Mechanical Ventilator 03/28/20 08:00 40 03/28/20 08:00 98.2 63 16 140/76 (97) 97 63 03/28/20 07:15 62 14 40 Intake and Output 03/29/20 03/30/20 19:00 07:00 Intake Total 470 ml 350 ml Balance 470 ml 350 ml Intake Free Water 120 ml Tube Feeding 350 ml 350 ml Labs Test 03/28/20 04:20 03/28/20 04:25 Sodium Level 137 MMOL/L (136-145) Potassium Level 4.0 MMOL/L (3.5-5.1) Chloride Level 100 MMOL/L (98-107) Carbon Dioxide Level 30 MMOL/L (21-32) Anion Gap 7 mmol/L (5-15) Blood Urea Nitrogen 88 mg/dL (7-18) Creatinine 2.6 MG/DL (0.55-1.30) Estimat Glomerular Filtration Rate 19.7 mL/min (>60) Glucose Level 98 MG/DL (74-106) Calcium Level 7.3 MG/DL (8.5-10.1) Total Bilirubin 0.6 MG/DL (0.2-1.0) Aspartate Amino Transf (AST/SGOT) 34 U/L (15-37) Alanine Aminotransferase (ALT/SGPT) 21 U/L (12-78) Alkaline Phosphatase 143 U/L (46-116) Total Protein 5.0 G/DL (6.4-8.2) Albumin 1.1 G/DL (3.4-5.0) Globulin 3.9 g/dL Albumin/Globulin Ratio 0.3 (1.0-2.7) White Blood Count 5.8 K/UL (4.8-10.8) Red Blood Count 2.73 M/UL (4.20-5.40) Hemoglobin 8.3 G/DL (12.0-16.0) Hematocrit 24.5 % (37.0-47.0) Mean Corpuscular Volume 90 FL (80-99) Mean Corpuscular Hemoglobin 30.3 PG (27.0-31.0) Mean Corpuscular Hemoglobin Concent 33.8 G/DL (32.0-36.0) Red Cell Distribution Width 13.5 % (11.6-14.8) Platelet Count 132 K/UL (150-450) Mean Platelet Volume 7.9 FL (6.5-10.1) Neutrophils (%) (Auto) 77.3 % (45.0-75.0) Lymphocytes (%) (Auto) 18.3 % (20.0-45.0) Monocytes (%) (Auto) 3.7 % (1.0-10.0) Eosinophils (%) (Auto) 0.1 % (0.0-3.0) Basophils (%) (Auto) 0.5 % (0.0-2.0) Height (Feet): 5 Height (Inches): 3.00 Weight (Pounds): 128 Objective Physical Exam: Vitals: reviewed General: NAD HEENT: nc, at Neck: supple ++trach/vent Chest: clear breath sounds bilaterally Cardiovascular: RRR, no s3, s4 Abdomen: soft, nontender, nd +gtube Extremities: no cce, normal range of motion Neuro: alert Evan Muhammad MD Mar 30, 2020 06:14
[2020-03-30 06:46] LABS: BASOPHILS % (AUTO) 0.4 % (0.0-2.0); EOSINOPHILS % (AUTO) 0.1 % (0.0-3.0); HEMATOCRIT 23.9 % (37.0-47.0); LYMPHOCYTES % (AUTO) 15.3 % (20.0-45.0); MEAN CORPUSCULAR VOLUME 90 FL (80-99); MONOCYTES % (AUTO) 4.4 % (1.0-10.0); NEUTROPHILS % (AUTO) 79.8 % (45.0-75.0); PLATELET COUNT 172 K/UL (150-450); RED BLOOD COUNT 2.66 M/UL (4.20-5.40); WHITE BLOOD COUNT 7.1 K/UL (4.8-10.8)
[2020-03-30 07:08] LABS: ALANINE AMINOTRANSFERASE 14 U/L (12-78); ALBUMIN 1.1 G/DL (3.4-5.0); ALBUMIN/GLOBULIN RATIO 0.3 (1.0-2.7); ALKALINE PHOSPHATASE 135 U/L (46-116); ANION GAP 7 mmol/L (5-15); ASPARTATE AMINO TRANSFERASE 31 U/L (15-37); BILIRUBIN,TOTAL 0.6 MG/DL (0.2-1.0); BLOOD UREA NITROGEN 78 mg/dL (7-18); CALCIUM 7.7 MG/DL (8.5-10.1); CARBON DIOXIDE 31 MMOL/L (21-32); CHLORIDE 102 MMOL/L (98-107); CREATININE 2.4 MG/DL (0.55-1.30); PHOSPHORUS 2.1 MG/DL (2.5-4.9); POTASSIUM 3.7 MMOL/L (3.5-5.1); SODIUM 140 MMOL/L (136-145)
--- NOTE | 2020-03-30 07:09 | NUR ---
NURSE HAND-OFF REPORT: Important Events on Shift: wound care performed Patient Status: FULL CODE Diet: Nepro @35 Pending Orders: [] Pending Results/Labs:[] Pending MD notification:[] Latest Vital Signs: Temperature 98.1 , Pulse 64 , B/P 125 /63 , Respiratory Rate 16 , O2 SAT 100 , Mechanical Ventilator, O2 Flow Rate . Vital Sign Comment: stable EKG Rhythm: Sinus Rhythm Rhythm change?: N MD Notified?: N -Dr Екатерина HATFIELD Response: No New Orders Received Latest Chavarria Fall Score: 60 Fall Risk: High Risk Safety Measures: Call light Within Reach, Bed Alarm Zone 2, Side Rails Side Rails x3, Bed position Low and Locked. Fall Precautions: Yellow Socks Report given to ERASMO Back.
--- NOTE | 2020-03-30 07:46 | NUR ---
NURSE NOTES: Received patient from ERASMO Abdul. Patient is AO x1 . Patient is nonverbal, but responds to touch. Patient shows no signs of distress or pain at the time. IV is intact and patent. There are no signs of erythema, infiltration, or bleeding. Patient is on Trach vent shiley 7, AC 14, TV 500, FIO2 65%. Patient shows no signs of respiratory distress at the time. G tube feeding is running Nepro @35cc/hr. No residual noted. Bed is in the lowest position, call light is within reach, side rails up x3. Will continue to monitor.
[2020-03-30 08:00] VITALS: BP 128/65
[2020-03-30] MEDS: Hydrocortisone 25mg supp RECTAL SCH ×2 (08:59→20:11)
[2020-03-30] MEDS: Pantoprazole Inj IVP SCH ×2 (08:59→20:11)
[2020-03-30] MEDS: Aspirin Baby 81mg GT SCH (08:59)
--- NOTE | 2020-03-30 08:59 | Infectious Diseases Prog Note ---
Assessment/Plan 49yo F with: MDR Kleb pna bacteremia AMS Anemia to 1.9 on admission 03/02 Leukocytosis to 40, improving GPC bacteremia UTI Pneumonia c/b mod-large R pleural effusion and small L pleural effusion - compressive atelectasis Hypotension 03/02 BCx 1/2 +Staph epi, 12 +Staph haemolyticus (m/l skin colonizers) UA+, UCx >100k P.stuartii (S-angelo) & CRE P.mirablis (R-polyB/colistin, S- tobramycin, per [facility] is "intrinsically resistant to Avycaz/Zerbaxa" not clear why to me and they are unable to elaborate more) COVID rapid neg, PCR neg CXR: Tracheostomy again demonstrated. Interim placement of a right jugular tunneled dialysis catheter. There is infiltrate and volume loss in the left lung, particularly in the perihilar region, suprahilar region, and base. Consolidation at the lung base is similar. The perihilar and suprahilar region consolidation is new. The right lung pleural space are clear. C.dif neg 03/03 BCx NTD 03/06 BCx 2/2 +MDR Kleb pna (arnett-R, including R-polyB, colistin), 02/14 +E.faecium VRE (R-amp, S-linezolid) 03/08 BCx NTD 03/09 CT CAP: Very limited exam, as described, due to massive anasarca. This could limit visualization of the discrete fluid collection such as an abscess. Extensive thoracoabdominal aortic dissection, as described above. Current flap begins just distal to the left subclavian artery origin; per report, there is history of surgical repair so there may have been surgical repair of the ascending thoracic aorta. Bilateral pleural effusions, slightly smaller than on earlier exams. Extensive atelectasis as a result. Extensive pulmonary par enchymal disease as detailed above. This may reflect pneumonia or pulmonary edema or both. Evidence of pulmonary arterial hypertension, with dilatation of the pulmonary artery. Considerable ascites fluid. 03/11 Chest US: Small right, trace left pleural effusions, insufficient for safe thoracentesis AF Sepsis Leukocytosis Hypoxia on vent Pneumonia c/b L pleural effusion (recurrent, prior determined to be transudative) - s/p thora 01/21, 1050cc removed Volume overload, BNP >35,0000, likely 2/2 progressive CKD --> ESRD ?Pancreatitis, Lipase >2000 Acute anemia to 5s CONS bacteremia, ?contaminant Aflutter w/ RVR 01/13 BCx 2/2 +S. epi COVID PCR neg Flu neg CXR: Large left pleural effusion. Bilateral interstitial and airspace infiltrates versus edema MRSA nares neg 01/16 BCx NTD 01/17 BCx /2 +Staph auricularis (skin colonizer) 01/18 Resp cx +MDR CRE PsA (S-gent, I-colistin, R-polyB) (Intermediate to Zerbaxa, Resistant to Avycaz) 01/18 C.dif neg 01/18 CXR: Similar opacification of the left hemithorax likely representing combination of pleural effusion with atelectasis versus pneumonia/edema. Decreased but persistent hazy opacity throughout the right lung may represent edema versus infectious/inflammatory process. 01/20 BCx NTD 01/21 L thora 1050 cc removed, cx NTD 01/25 Wound cx from Gtube site +CRE Kleb pna (arnett-R) and MDR PsA (colonizers) 01/26 CT A/P: Limited exam, due to severe diffuse anasarca. Ascites. Bilateral pleural effusions. Basilar pulmonary atelectatic changes and consolidation. Gastrostomy. Atrophic left kidney with a nephroureteral stents again demonstrated. Possible retrococcygeal decubitus changes. Correlate with clinical findings, consider MRI if there is concern for sacral osteomyelitis. Right hip intertrochanteric fracture, also previously demonstrated. Left femoral dialysis catheter. Nonspecific right lobe liver lesion is unchanged, not well- demonstrated. ctasia bordering on aneurysmal dilatation and possible chronic dissection of the distal thoracic aorta, also previously described. JAVIER on CKD On previous admission Sep-Oct 2019 required HD for short period Going to start HD this admission again R/o COVID 01/14 COVID PCR neg 12/29 neg at [facility] per report H/o UTI 10/15 u/a wbc 30-40, nit neg, leuk +3; ucx ESBL P. mirablis, ESBL M. morganii //20 u/a wbc tnct, nit neg, leuk +3; ucx >100k MDR P. stuarti (S Ceftriaxone, Meropenem) 8/25 u/a wbc tnct, nit neg, leuk ; ucx >100k VRE 10/15/19 u/a wbc tnct; ucx >100k ESBL P. stuarti (S ertapenem, aztreonam) H/o transudative pleural effusion 11/28 Sp Thora (w: 169, PMN: 2%, L: 49% , LDH: 57, prot 2.5); cx Neg H/o PNA 10/15/19 Resp cx ESBL P. mirabilis, MDR P.a. (S only to Gent) 09/22 Resp cx + MDR PsA (S-gent; I-colistin; R-levofloxacin, Zosyn, angelo) 09/16/19 Sp cx ESBL P. mirablis H/o PPM site (pocket) infection and pocket abscess 2ry to S. epi-11/2018, sp >6weeks IV vancomycin 11/27 SP ABBIE: no evidence for vegetation on any of the valves 11/26/18 SP PPM removal: OR findings:The fibrous capsule enclosing the generator was then opened and there was a [id number] amount of yellowish fluid drainage. The generator was then removed.Atrial and ventricular leads were detached. The necrotic tissue of the pocket was then removed and the pocket was flushed with an antibiotic solution. Capsule, wound tissue and lead tip cx: Neg 2d echo: no vegetation seen US chest: 4.6 x 3.4 x 0.9 cm hypoechoic/anechoic area overlying left chest pacemaker power pack. This could represent either a discrete fluid collection or a focal area of very edematous tissue. Infected fluid pocket also possible. 11/18 Bcx 3/4 S. epi; 11/20 Bcx neg; 11/24 Bcx Neg; 11/27 Bcx Neg CAD s/p CABG GERD/gastritis Afib HTN Dysphagia sp GT Aortic dissection s/p repair 2017 S/p PPM Parkinson's Disease Schizophrenia Anxiety COPD Chronic resp failure s/p trach Hx of tracheal bleeding [place] resident ([facility]) VRE and MRSA colonized Plan: Cont to monitor off abx Pt needs emergent transfer out to [facility] for CT surgery evaluation given thoracic aortic aneurysm noted on CT imaging per Surgery recs, primary MD aware Trend Hg, GIB 03/21 SP daptomycin #12, Avycaz #16 for VRE and MDR Kleb bacteremia 2/1 SP tobramycin IV #10 for resistant UTI 03/10/20 SP edson #4 empiric, vanco #9 01/31 SP angelo/inh tobra #10 for pna 01/23 SP vanco IV #10 given CONS/GPC bacteremia 01/16 SP Zosyn #2 01/14 SP dex 10mg in ED 12/10 SP IV Gentamycin #10 12/07 SP Meropenem #10 12/01 SP IV Vancomycin #5 11/28 Sp Cefepime #2 and IV Gentamycin x1 Monitor CBC/CMP Monitor temp curve, hemodynamics Monitor resp status D/w RN Thank you for this consult. [facility] will continue to follow. Subjective Allergies: Coded Allergies: No Known Allergies (Unverified , 10/10/17) AF NAD on vent 65% PEEP 5 WBC 7.1 Objective Last 24 Hour Vital Signs Date Time Temp Pulse Resp B/P (MAP) Pulse Ox O2 Delivery O2 Flow Rate FiO2 03/30/20 08:00 97.2 55 14 128/65 (86) 100 55 03/30/20 07:16 56 14 100 03/30/20 05:49 64 125/63 03/30/20 05:00 60 16 100 03/30/20 04:00 65 03/30/20 04:00 64 03/30/20 04:00 Mechanical Ventilator 03/30/20 04:00 98.1 61 14 125/63 (83) 100 61 03/30/20 03:00 65 18 100 03/30/20 00:10 50 03/30/20 00:00 97.9 58 14 120/58 (78) 100 58 03/30/20 00:00 59 03/30/20 00:00 Mechanical Ventilator 03/29/20 23:25 64 14 100 03/29/20 21:43 65 129/66 03/29/20 21:00 64 14 100 03/29/20 20:00 65 03/29/20 20:00 50 03/29/20 20:00 97.5 60 14 129/66 (87) 100 60 03/29/20 20:00 Mechanical Ventilator 03/29/20 19:00 61 15 100 03/29/20 16:18 58 03/29/20 16:00 Mechanical Ventilator 03/29/20 16:00 50 03/29/20 16:00 97.7 60 16 124/58 (80) 94 60 03/29/20 15:20 66 19 100 03/29/20 13:49 68 135/63 03/29/20 12:00 64 03/29/20 12:00 97.7 66 27 122/57 (78) 96 66 03/29/20 12:00 50 03/29/20 12:00 Mechanical Ventilator 03/29/20 11:06 58 14 100 Height (Feet): 5 Height (Inches): 3.00 Weight (Pounds): 128 Gen: NAD HEENT: NCAT, trach Pulm: BL chest rise on vent Abd: Soft, NTND, +PEG Ext: No c/c/e Skin: No visible rashes Neuro: Awake, minimally interactive Lines: R chest Permacath dressing c/d/i Laboratory Tests Test 03/30/20 03:50 03/30/20 07:48 White Blood Count 7.1 K/UL (4.8-10.8) Red Blood Count 2.66 M/UL (4.20-5.40) L Hemoglobin 8.0 G/DL (12.0-16.0) L Hematocrit 23.9 % (37.0-47.0) L Mean Corpuscular Volume 90 FL (80-99) Mean Corpuscular Hemoglobin 30.2 PG (27.0-31.0) Mean Corpuscular Hemoglobin Concent 33.6 G/DL (32.0-36.0) Red Cell Distribution Width 14.0 % (11.6-14.8) Platelet Count 172 K/UL (150-450) Mean Platelet Volume 7.3 FL (6.5-10.1) Neutrophils (%) (Auto) 79.8 % (45.0-75.0) H Lymphocytes (%) (Auto) 15.3 % (20.0-45.0) L Monocytes (%) (Auto) 4.4 % (1.0-10.0) Eosinophils (%) (Auto) 0.1 % (0.0-3.0) Basophils (%) (Auto) 0.4 % (0.0-2.0) Sodium Level 140 MMOL/L (136-145) Potassium Level 3.7 MMOL/L (3.5-5.1) Chloride Level 102 MMOL/L (98-107) Carbon Dioxide Level 31 MMOL/L (21-32) Anion Gap 7 mmol/L (5-15) Blood Urea Nitrogen 78 mg/dL (7-18) H Creatinine 2.4 MG/DL (0.55-1.30) H Estimat Glomerular Filtration Rate 21.7 mL/min (>60) Glucose Level 89 MG/DL (74-106) Calcium Level 7.7 MG/DL (8.5-10.1) L Phosphorus Level 2.1 MG/DL (2.5-4.9) L Magnesium Level 2.1 MG/DL (1.8-2.4) Total Bilirubin 0.6 MG/DL (0.2-1.0) Aspartate Amino Transf (AST/SGOT) 31 U/L (15-37) Alanine Aminotransferase (ALT/SGPT) 14 U/L (12-78) Alkaline Phosphatase 135 U/L (46-116) H C-Reactive Protein, Quantitative 19.8 mg/dL (0.00-0.90) H Pro-B-Type Natriuretic Peptide > 77156 pg/mL (0-125) H Total Protein 5.2 G/DL (6.4-8.2) L Albumin 1.1 G/DL (3.4-5.0) L Globulin 4.1 g/dL Albumin/Globulin Ratio 0.3 (1.0-2.7) L HIV (1&2) Antibody Rapid Pending Current Medications Medications (Trade) Dose Ordered Sig/Penny Route PRN Reason Start Time Stop Time Status Last Admin Dose Admin Acetaminophen (Tylenol) 650 mg Q6H PRN GT Mild Pain (Pain Scale 1-3) 03/02/20 22:30 04/01/20 22:29 03/29/20 03:43 Acetaminophen (Tylenol) 650 mg Q6H PRN GT Temp >100.5 03/03/20 03:00 04/01/20 22:29 03/23/20 21:49 Aspirin (ASA) 81 mg DAILY GT 03/07/20 09:00 04/21/20 08:59 03/28/20 08:44 Carvedilol (Coreg) 6.25 mg EVERY 8 HOURS GT 03/20/20 22:00 04/13/20 20:59 03/30/20 05:49 Chlorhexidine Gluconate (Ling-Hex 2%) 1 applic DAILY@1999 TOPIC 03/03/20 20:00 06/01/20 19:59 03/29/20 21:42 Dextrose (Dextrose 50%) 25 ml Q30M PRN IV Hypoglycemia 03/15/20 07:30 06/13/20 07:29 Dextrose (Dextrose 50%) 50 ml Q30M PRN IV Hypoglycemia 03/15/20 07:30 06/13/20 07:29 Hydralazine HCl (Apresoline) 25 mg Q6H PRN GT For High Blood Pressure 03/02/20 22:00 05/31/20 21:59 Hydrocortisone (Anusol HC) 25 mg Q12HR RECTAL 03/23/20 21:00 06/21/20 08:59 03/29/20 21:42 Hydromorphone HCl (Dilaudid) 0.5 mg Q4H PRN IVP For Pain 03/26/20 19:30 04/02/20 19:29 03/30/20 05:59 Loperamide HCl (Imodium) 2 mg Q6H PRN GT Diarrhea 03/06/20 12:45 04/05/20 12:44 03/06/20 13:01 Metoclopramide HCl (Reglan) 5 mg Q8HR IVP 03/04/20 11:45 04/03/20 11:44 03/30/20 05:47 Midodrine (Pro-Amatine) 10 mg EVERY 8 HOURS GT 03/17/20 22:00 06/01/20 12:59 03/24/20 13:02 Pantoprazole (Protonix) 40 mg EVERY 12 HOURS IVP 03/04/20 21:00 04/02/20 20:59 03/29/20 21:42 Polyethylene Glycol (Miralax) 17 gm BEDTIME PRN GT Constipation 03/02/20 22:00 04/01/20 21:59 Sodium Hypochlorite (Dakin's Quarter Strength) 1 applic DAILY TOPIC 03/04/20 09:00 04/03/20 08:59 03/29/20 08:39 Sucralfate (Carafate) 1 gm EVERY 6 HOURS GT 03/17/20 18:00 06/09/20 08:59 03/30/20 05:47 Tramadol HCl (Ultram) 50 mg Q6H PRN ORAL Moderate Pain (Pain Scale 4-6) 03/26/20 19:30 04/02/20 19:29 03/29/20 11:48 Zinc Oxide (Zinc Oxide) 1 applic Q8HR TOPIC 03/25/20 22:00 06/22/20 17:59 03/30/20 05:49 Ro Pack M.D. Mar 30, 2020 08:59
--- NOTE | 2020-03-30 09:41 | NUR ---
CASE MANAGEMENT:REVIEW 03/30/20 SI: SEPSIS. BACTEREMIA. AORTIC DISSECTION ANEMIA...S/P 14 UNITS PRBC'S. TRACH/VENT/GTUBE. 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
[2020-03-30] MEDS: Dakin's 0.125% Soln (Quarter Strength) 16oz TOPIC SCH (10:17)
--- NOTE | 2020-03-30 10:19 | Pulmonology Progress Note ---
Subjective ROS Limited/Unobtainable: Yes Interval Events: none major reported per nursing Constitutional: Reports: fever, other - resolved HEENT: Repors: no symptoms Respiratory: Reports: no symptoms Cardiovascular: Reports: no symptoms Gastrointestinal/Abdominal: Reports: diarrhea Allergies: Coded Allergies: No Known Allergies (Unverified , 10/10/17) All Systems: reviewed and negative except above Objective Last 24 Hour Vital Signs Date Time Temp Pulse Resp B/P (MAP) Pulse Ox O2 Delivery O2 Flow Rate FiO2 03/30/20 08:00 97.2 55 14 128/65 (86) 100 55 03/30/20 07:16 56 14 100 03/30/20 05:49 64 125/63 03/30/20 05:00 60 16 100 03/30/20 04:00 65 03/30/20 04:00 64 03/30/20 04:00 Mechanical Ventilator 03/30/20 04:00 98.1 61 14 125/63 (83) 100 61 03/30/20 03:00 65 18 100 03/30/20 00:10 50 03/30/20 00:00 97.9 58 14 120/58 (78) 100 58 03/30/20 00:00 59 03/30/20 00:00 Mechanical Ventilator 03/29/20 23:25 64 14 100 03/29/20 21:43 65 129/66 03/29/20 21:00 64 14 100 03/29/20 20:00 65 03/29/20 20:00 50 03/29/20 20:00 97.5 60 14 129/66 (87) 100 60 03/29/20 20:00 Mechanical Ventilator 03/29/20 19:00 61 15 100 03/29/20 16:18 58 03/29/20 16:00 Mechanical Ventilator 03/29/20 16:00 50 03/29/20 16:00 97.7 60 16 124/58 (80) 94 60 03/29/20 15:20 66 19 100 03/29/20 13:49 68 135/63 03/29/20 12:00 64 03/29/20 12:00 97.7 66 27 122/57 (78) 96 66 03/29/20 12:00 50 03/29/20 12:00 Mechanical Ventilator 03/29/20 11:06 58 14 100 Intake and Output 03/29/20 03/30/20 19:00 07:00 Intake Total 470 ml 350 ml Balance 470 ml 350 ml Intake Free Water 120 ml Tube Feeding 350 ml 350 ml General Appearance: no acute distress HEENT: atraumatic Respiratory: lungs clear Cardiovascular: normal rate, regular rhythm Extremities: other - edema bilateral Laboratory Tests 03/30/20 03:50: White Blood Count 7.1, Red Blood Count 2.66L, Hemoglobin 8.0L, Hematocrit 23.9L, Mean Corpuscular Volume 90, Mean Corpuscular Hemoglobin 30.2, Mean Corpuscular Hemoglobin Concent 33.6, Red Cell Distribution Width 14.0, Platelet Count 172, Mean Platelet Volume 7.3, Neutrophils (%) (Auto) 79.8H, Lymphocytes (%) (Auto) 15.3L, Monocytes (%) (Auto) 4.4, Eosinophils (%) (Auto) 0.1, Basophils (%) (Auto) 0.4, Sodium Level 140, Potassium Level 3.7, Chloride Level 102, Carbon Dioxide Level 31, Anion Gap 7, Blood Urea Nitrogen 78H, Creatinine 2.4H, Estimat Glomerular Filtration Rate 21.7, Glucose Level 89, Calcium Level 7.7L, Ph osphorus Level 2.1L, Magnesium Level 2.1, Total Bilirubin 0.6, Aspartate Amino Transf (AST/SGOT) 31, Alanine Aminotransferase (ALT/SGPT) 14, Alkaline Phosphatase 135H, C-Reactive Protein, Quantitative 19.8H, Pro-B-Type Natriuretic Peptide > 59217Q, Total Protein 5.2L, Albumin 1.1L, Globulin 4.1, Albumin/Globulin Ratio 0.3L 03/30/20 07:48: HIV (1&2) Antibody Rapid [Pending] Current Medications Medications (Trade) Dose Ordered Sig/Penny Route PRN Reason Start Time Stop Time Status Last Admin Dose Admin Acetaminophen (Tylenol) 650 mg Q6H PRN GT Mild Pain (Pain Scale 1-3) 03/02/20 22:30 04/01/20 22:29 03/29/20 03:43 Acetaminophen (Tylenol) 650 mg Q6H PRN GT Temp >100.5 03/03/20 03:00 04/01/20 22:29 03/23/20 21:49 Aspirin (ASA) 81 mg DAILY GT 03/07/20 09:00 3/9/21 08:59 03/30/20 08:59 Carvedilol (Coreg) 6.25 mg EVERY 8 HOURS GT 03/20/20 22:00 04/13/20 20:59 03/30/20 05:49 Chlorhexidine Gluconate (Ling-Hex 2%) 1 applic DAILY@1999 TOPIC 03/03/20 20:00 06/01/20 19:59 03/29/20 21:42 Dextrose (Dextrose 50%) 25 ml Q30M PRN IV Hypoglycemia 03/15/20 07:30 06/13/20 07:29 Dextrose (Dextrose 50%) 50 ml Q30M PRN IV Hypoglycemia 03/15/20 07:30 06/13/20 07:29 Hydralazine HCl (Apresoline) 25 mg Q6H PRN GT For High Blood Pressure 03/02/20 22:00 05/31/20 21:59 Hydrocortisone (Anusol HC) 25 mg Q12HR RECTAL 03/23/20 21:00 06/21/20 08:59 03/30/20 08:59 Hydromorphone HCl (Dilaudid) 0.5 mg Q4H PRN IVP For Pain 03/26/20 19:30 04/02/20 19:29 03/30/20 05:59 Loperamide HCl (Imodium) 2 mg Q6H PRN GT Diarrhea 03/06/20 12:45 04/05/20 12:44 03/06/20 13:01 Metoclopramide HCl (Reglan) 5 mg Q8HR IVP 03/04/20 11:45 04/03/20 11:44 03/30/20 05:47 Midodrine (Pro-Amatine) 10 mg EVERY 8 HOURS GT 03/17/20 22:00 06/01/20 12:59 03/24/20 13:02 Pantoprazole (Protonix) 40 mg EVERY 12 HOURS IVP 03/04/20 21:00 04/02/20 20:59 03/30/20 08:59 Polyethylene Glycol (Miralax) 17 gm BEDTIME PRN GT Constipation 03/02/20 22:00 04/01/20 21:59 Sodium Hypochlorite (Dakin's Quarter Strength) 1 applic DAILY TOPIC 03/04/20 09:00 04/03/20 08:59 03/29/20 08:39 Sucralfate (Carafate) 1 gm EVERY 6 HOURS GT 03/17/20 18:00 06/09/20 08:59 03/30/20 05:47 Tramadol HCl (Ultram) 50 mg Q6H PRN ORAL Moderate Pain (Pain Scale 4-6) 03/26/20 19:30 04/02/20 19:29 03/29/20 11:48 Zinc Oxide (Zinc Oxide) 1 applic Q8HR TOPIC 03/25/20 22:00 06/22/20 17:59 03/30/20 05:49 Assessment/Plan Assessment/Plan 1. Chronic respiratory failure. - CT chest/abd/pelv: improving pleural effusion 2. Mechanical ventilation. - Now FiO2 50% -> wean slowly; she is reported to be at 40% FiO2 at baseline - suction secretions as needed 3. Chronic tracheostomy. 4. Chronic G-tube. 5. Anemia. - s/p transfusion - stool OB positive (03/02, 03/03, 03/22) - off anticoags 6. Renal failure. 7. Leukocytosis and sepsis. - WBC now wnl 8. Sepsis UTI 9. Gram positive cocci bacteremia - f/u BCx negative for growth 10. COVID-19 negative 11. Diarrhea - C. diff neg 12. Hypoglycemia - resolved 13. Bradycardia - no urgent indication for pacemaker per cardio 14. Gastric ulcer - on PPI -No active bleeding - GI following 15. Pleural effusion - small; insufficient volume for safe thoracentesis 16. thoracic aortic aneurysm - noted on CT imaging - pt needs emergent transfer out to [facility] for CT surgery evaluation, primary MD aware - Pt might not be a candidate for TAA repair 17. Ascites - s/p paracentesis (2), 2.3L out 18. DVT ppx - on SCD -Venous duplex ultrasound of legs negative for DVT (03/25) The care of this patient was discussed with my supervising physician Time spent for this encounter was approximately 31 minutes Cruz Wilson Mar 30, 2020 10:19
[2020-03-30 12:00] VITALS: BP 139/70
[2020-03-30] MEDS ORDERED: Phospha 250 Neutral tab GT SCH (12:30)
--- NOTE | 2020-03-30 12:31 | Nephrology Progress Note ---
Assessment/Plan Problem List: (1) Renal failure (ARF), acute on chronic (2) Anemia (3) Hyponatremia (4) Respiratory failure Assessment (1) JAVIER (acute kidney injury) (2) Renal failure (ARF), acute on chronic (3) Feeding by G-tube (4) Tracheostomy in place (5) Electrolyte imbalance, hyponatremia (6) Anemia, severe (7) Respiratory failure, acute and chronic (8) history of elevated lipase, pancreatitis (9) Elevated troponin I (10) Sepsis Plan March 30: Labs reviewed. Low phosphorus addressed. Continue per PMD and consultants. Dialysis as needed. March 29: Dialyzed yesterday. No CHEM panel drawn today. We will continue to monitor renal parameters. Continue per consultants. March 28: Due for dialysis today. Labs reviewed. Stable from renal standpoint of view. March 27: Due for dialysis tomorrow. Labs reviewed. Medication list reviewed. Continue per current management. March 26: Last dialyzed March 24. Labs reviewed. Low phosphorus replaced. Continue to monitor renal parameters. Dialysis as needed. March 25: Dialyzed yesterday. Labs reviewed. Low phosphorus replaced. Continue per current management. Hemoglobin higher. March 24: Labs reviewed. Due for dialysis today. Continue per current management. Hemoglobin lower. Transfusion per rn l and d. March 23: Labs reviewed. Dialyzed yesterday. Next dialysis tomorrow. Anemia management per rn l and d. March 22: Labs reviewed. Due for dialysis today. Discussed with RN. Agree with discontinuation of the Norman catheter. Hemoglobin lower. Transfusion per rn l and d. March 21: Labs reviewed. Will arrange for dialysis tomorrow. Continue per consultants. Will hold phosphorus binders at this time. March 20: Labs reviewed. Patient was dialyzed yesterday. Electrolyte abnormalities corrected. Continue per current management. March 19: Due for dialysis today. Abnormal labs noted. All will be corrected after dialysis. March 18: Labs reviewed. Will dialyze tomorrow. Patient being transfused today. Patient due for abdominal paracentesis. We will keep the Norman in. Continue to monitor renal parameters and dialyze as needed. March 17: No CHEM panel done today. CBC reviewed. Hemoglobin is lowering. Dialyzed yesterday. Will check lab tomorrow. Continue per consultants. March 16: Labs reviewed. Due for dialysis today. Hemoglobin 10.2 today. Continue to monitor renal parameters. March 15: Labs reviewed. Dialyzed March 13. Due for dialysis March 16. Hemoglobin lower. 1 unit of packed RBCs ordered. Per orders. March 14: No labs drawn today. Dialyzed yesterday. Full code. Will check lab tomorrow. Dialysis as needed. March 13: Labs reviewed. Due for dialysis today. Patient remains full code. Continue per current management. March 12: Labs reviewed. Dialyzed yesterday. Due for dialysis tomorrow. Discussed with RN. Patient full code. Continue per current management. March 11: Labs reviewed. Dialyzed this morning. Phosphorus binders dose adjusted. Continue per consultants. Continue to monitor renal parameters. CT: Extensive thoracoabdominal aortic dissection March 10: Labs reviewed. Will order dialysis tomorrow. Phosphorus binders added. Continue per consultants. March 09: No chemistry panel done today. Patient dialyzed yesterday. On dextrose 10% for hypoglycemia. We will check labs tomorrow. Dialysis as needed. March 08: Labs reviewed. Will order dialysis today. Blood sugar low. D10 50 cc an hour started. Continue as is. March 07: Labs reviewed. Dialyzed March 05 and March 06. Continue to monitor renal parameters and hemoglobin. Abnormal electrolytes addressed. IV fluids stopped. Per orders. March 06: Labs reviewed. Dialyzed yesterday. Will reorder dialysis for today. Continue to monitor renal parameters. Hemoglobin 8.4. Patient full code. March 05: Labs reviewed. Patient did not receive dialysis until this morning. Proceed with dialysis. Continue to monitor renal parameters and hemoglobin and hematocrit. March 04: Labs reviewed. Hemoglobin lower. Patient actively bleeding. Was not dialyzed yesterday. Due for GI endoscopy. Continue fluid challenge. Transfusion as needed. Dialysis today. March 03: Labs reviewed. Dialysis ordered. Blood pressure medication all discontinued due to hypotensive state. Albumin bolus given. Continue to monitor renal parameters. Medication list reviewed. Midodrin for low blood pressure ordered Subjective ROS Limited/Unobtainable: Yes Objective Objective Last 24 Hour Vital Signs Date Time Temp Pulse Resp B/P (MAP) Pulse Ox O2 Delivery O2 Flow Rate FiO2 03/30/20 08:00 97.2 55 14 128/65 (86) 100 55 03/30/20 08:00 Mechanical Ventilator 03/30/20 08:00 65 03/30/20 07:16 56 14 100 03/30/20 05:49 64 125/63 03/30/20 05:00 60 16 100 03/30/20 04:00 65 03/30/20 04:00 64 03/30/20 04:00 Mechanical Ventilator 03/30/20 04:00 98.1 61 14 125/63 (83) 100 61 03/30/20 03:00 65 18 100 03/30/20 00:10 50 03/30/20 00:00 97.9 58 14 120/58 (78) 100 58 03/30/20 00:00 59 03/30/20 00:00 Mechanical Ventilator 03/29/20 23:25 64 14 100 03/29/20 21:43 65 129/66 03/29/20 21:00 64 14 100 03/29/20 20:00 65 03/29/20 20:00 50 03/29/20 20:00 97.5 60 14 129/66 (87) 100 60 03/29/20 20:00 Mechanical Ventilator 03/29/20 19:00 61 15 100 03/29/20 16:18 58 03/29/20 16:00 Mechanical Ventilator 03/29/20 16:00 50 03/29/20 16:00 97.7 60 16 124/58 (80) 94 60 03/29/20 15:20 66 19 100 03/29/20 13:49 68 135/63 Intake and Output 03/29/20 03/30/20 19:00 07:00 Intake Total 470 ml 350 ml Balance 470 ml 350 ml Intake Free Water 120 ml Tube Feeding 350 ml 350 ml Current Medications Medications (Trade) Dose Ordered Sig/Penny Route PRN Reason Start Time Stop Time Status Last Admin Dose Admin Acetaminophen (Tylenol) 650 mg Q6H PRN GT Mild Pain (Pain Scale 1-3) 03/02/20 22:30 04/01/20 22:29 03/29/20 03:43 Acetaminophen (Tylenol) 650 mg Q6H PRN GT Temp >100.5 03/03/20 03:00 04/01/20 22:29 03/23/20 21:49 Aspirin (ASA) 81 mg DAILY GT 03/07/20 09:00 04/21/20 08:59 03/30/20 08:59 Carvedilol (Coreg) 6.25 mg EVERY 8 HOURS GT 03/20/20 22:00 04/13/20 20:59 03/30/20 05:49 Chlorhexidine Gluconate (Ling-Hex 2%) 1 applic DAILY@1999 TOPIC 03/03/20 20:00 06/01/20 19:59 03/29/20 21:42 Dextrose (Dextrose 50%) 25 ml Q30M PRN IV Hypoglycemia 03/15/20 07:30 06/13/20 07:29 Dextrose (Dextrose 50%) 50 ml Q30M PRN IV Hypoglycemia 03/15/20 07:30 06/13/20 07:29 Hydralazine HCl (Apresoline) 25 mg Q6H PRN GT For High Blood Pressure 03/02/20 22:00 05/31/20 21:59 Hydrocortisone (Anusol HC) 25 mg Q12HR RECTAL 03/23/20 21:00 06/21/20 08:59 03/30/20 08:59 Hydromorphone HCl (Dilaudid) 0.5 mg Q4H PRN IVP For Pain 03/26/20 19:30 04/02/20 19:29 03/30/20 05:59 Loperamide HCl (Imodium) 2 mg Q6H PRN GT Diarrhea 03/06/20 12:45 04/05/20 12:44 03/06/20 13:01 Metoclopramide HCl (Reglan) 5 mg Q8HR IVP 03/04/20 11:45 04/03/20 11:44 03/30/20 05:47 Midodrine (Pro-Amatine) 10 mg EVERY 8 HOURS GT 03/17/20 22:00 06/01/20 12:59 03/24/20 13:02 Pantoprazole (Protonix) 40 mg EVERY 12 HOURS IVP 03/04/20 21:00 04/02/20 20:59 03/30/20 08:59 Polyethylene Glycol (Miralax) 17 gm BEDTIME PRN GT Constipation 03/02/20 22:00 04/01/20 21:59 Sodium Hypochlorite (Dakin's Quarter Strength) 1 applic DAILY TOPIC 03/04/20 09:00 04/03/20 08:59 03/30/20 10:17 Sucralfate (Carafate) 1 gm EVERY 6 HOURS GT 03/17/20 18:00 06/09/20 08:59 03/30/20 05:47 Tramadol HCl (Ultram) 50 mg Q6H PRN ORAL Moderate Pain (Pain Scale 4-6) 03/26/20 19:30 04/02/20 19:29 03/29/20 11:48 Zinc Oxide (Zinc Oxide) 1 applic Q8HR TOPIC 03/25/20 22:00 06/22/20 17:59 03/30/20 05:49 Laboratory Tests 03/30/20 03:50: White Blood Count 7.1, Red Blood Count 2.66L, Hemoglobin 8.0L, Hematocrit 23.9L, Mean Corpuscular Volume 90, Mean Corpuscular Hemoglobin 30.2, Mean Corpuscular Hemoglobin Concent 33.6, Red Cell Distribution Width 14.0, Platelet Count 172, Mean Platelet Volume 7.3, Neutrophils (%) (Auto) 79.8H, Lymphocytes (%) (Auto) 15.3L, Monocytes (%) (Auto) 4.4, Eosinophils (%) (Auto) 0.1, Basophils (%) (Auto) 0.4, Sodium Level 140, Potassium Level 3.7, Chloride Level 102, Carbon Dioxide Level 31, Anion Gap 7, Blood Urea Nitrogen 78H, Creatinine 2.4H, Estimat Glomerular Filtration Rate 21.7, Glucose Level 89, Calcium Level 7.7L, Phosphorus Level 2.1L, Magnesium Level 2.1, Total Bilirubin 0.6, Aspartate Amino Transf (AST/SGOT) 31, Alanine Aminotransferase (ALT/SGPT) 14, Alkaline Phosphatase 135H, C-Reactive Protein, Quantitative 19.8H, Pro-B-Type Natriuretic Peptide > 08069D, Total Protein 5.2L, Albumin 1.1L, Globulin 4.1, Albumin/Globulin Ratio 0.3L 03/30/20 07:48: HIV (1&2) Antibody Rapid [Pending] Height (Feet): 5 Height (Inches): 3.00 Weight (Pounds): 128 General Appearance: no apparent distress Cardiovascular: bradycardia Respiratory/Chest: decreased breath sounds Abdomen: distended Johnny Houston MD Mar 30, 2020 12:31
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
--- NOTE | 2020-03-30 14:58 | NUR ---
INSURANCE CLINICALS/REVIEW FAXED TO [facility] T: [phone] F: [phone]
--- NOTE | 2020-03-30 15:27 | General Progress Note ---
Subjective ROS Limited/Unobtainable: No Allergies: Coded Allergies: No Known Allergies (Unverified , 10/10/17) Objective Last 24 Hour Vital Signs Date Time Temp Pulse Resp B/P (MAP) Pulse Ox O2 Delivery O2 Flow Rate FiO2 03/30/20 14:41 97.9 03/30/20 14:11 60 139/70 03/30/20 13:00 63 23 100 03/30/20 12:00 64 03/30/20 12:00 97.9 60 24 139/70 (93) 100 60 03/30/20 12:00 65 03/30/20 12:00 Mechanical Ventilator 03/30/20 08:00 97.2 55 14 128/65 (86) 100 55 03/30/20 08:00 60 03/30/20 08:00 Mechanical Ventilator 03/30/20 08:00 65 03/30/20 07:16 56 14 100 03/30/20 05:49 64 125/63 03/30/20 05:00 60 16 100 03/30/20 04:00 65 03/30/20 04:00 64 03/30/20 04:00 Mechanical Ventilator 03/30/20 04:00 98.1 61 14 125/63 (83) 100 61 03/30/20 03:00 65 18 100 03/30/20 00:10 50 03/30/20 00:00 97.9 58 14 120/58 (78) 100 58 03/30/20 00:00 59 03/30/20 00:00 Mechanical Ventilator 03/29/20 23:25 64 14 100 03/29/20 21:43 65 129/66 03/29/20 21:00 64 14 100 03/29/20 20:00 65 03/29/20 20:00 50 03/29/20 20:00 97.5 60 14 129/66 (87) 100 60 03/29/20 20:00 Mechanical Ventilator 03/29/20 19:00 61 15 100 03/29/20 16:18 58 03/29/20 16:00 Mechanical Ventilator 03/29/20 16:00 50 03/29/20 16:00 97.7 60 16 124/58 (80) 94 60 Intake and Output 03/29/20 03/30/20 19:00 07:00 Intake Total 470 ml 350 ml Balance 470 ml 350 ml Intake Free Water 120 ml Tube Feeding 350 ml 350 ml Laboratory Tests 03/30/20 03:50: White Blood Count 7.1, Red Blood Count 2.66L, Hemoglobin 8.0L, Hematocrit 23.9L, Mean Corpuscular Volume 90, Mean Corpuscular Hemoglobin 30.2, Mean Corpuscular Hemoglobin Concent 33.6, Red Cell Distribution Width 14.0, Platelet Count 172, Mean Platelet Volume 7.3, Neutrophils (%) (Auto) 79.8H, Lymphocytes (%) (Auto) 15.3L, Monocytes (%) (Auto) 4.4, Eosinophils (%) (Auto) 0.1, Basophils (%) (Auto) 0.4, Sodium Level 140, Potassium Level 3.7, Chloride Level 102, Carbon Dioxide Level 31, Anion Gap 7, Blood Urea Nitrogen 78H, Creatinine 2.4H, Estimat Glomerular Filtration Rate 21.7, Glucose Level 89, Calcium Level 7.7L, Phosphorus Level 2.1L, Magnesium Level 2.1, Total Bilirubin 0.6, Aspartate Amino Transf (AST/SGOT) 31, Alanine Aminotransferase (ALT/SGPT) 14, Alkaline Phosphatase 135H, C-Reactive Protein, Quantitative 19.8H, Pro-B-Type Natriuretic Peptide > 52015W, Total Protein 5.2L, Albumin 1.1L, Globulin 4.1, Albumin/Globulin Ratio 0.3L 03/30/20 07:48: HIV (1&2) Antibody Rapid [Pending] Height (Feet): 5 Height (Inches): 3.00 Weight (Pounds): 128 General Appearance: no apparent distress EENT: normal ENT inspection Neck: supple Cardiovascular: normal rate Respiratory/Chest: decreased breath sounds Abdomen: normal bowel sounds, non tender, soft Extremities: non-tender Assessment/Plan Problem List: (1) Hx of CABG ICD Codes: Z95.1 - Presence of aortocoronary bypass graft SNOMED: 986472248, 299861155 (2) History of tracheostomy ICD Codes: Z98.890 - Other specified postprocedural states SNOMED: 949401832, 619703152 (3) PEG (percutaneous endoscopic gastrostomy) status ICD Codes: Z93.1 - Gastrostomy status SNOMED: 088096337, 867135575 (4) Renal failure ICD Codes: N19 - Unspecified kidney failure SNOMED: 10187459, 184295987 (5) Severe anemia ICD Codes: D64.9 - Anemia, unspecified SNOMED: 535795482 Assessment/Plan: s/p EGD gastric ulcer on ppi and carafate fu H&H GTF s/p EGD GT tightened at the bedside repeat labs will fu Inder Mccauley MD Mar 30, 2020 15:27
[2020-03-30 16:00] VITALS: BP 142/65
--- NOTE | 2020-03-30 16:29 | NUR ---
NURSE NOTES: RT titrated patient FIO2 from 65% to 40% per Katie Arroyo request. Patient tolerating well, saturating at 96%.
--- NOTE | 2020-03-30 18:55 | NUR ---
NURSE NOTES: Received report from ERASMO Irving.Pt is awake lying in bed in semi- crisostomo's position, Notice dependent edema in left face. Reposition patient, kept Left side elevated. Alert oriented x 2. Pt is alert to name and place. Pt has LFA g22 intact and patent. Connected to trach to vent with fio2- 40% o2 sat- 100%. No discharge noted in gtube site, optifoam still intact. Not in respiratory distress, denies pain. Bed in lowest position. Call light within reach. Continue to plan of care.
--- NOTE | 2020-03-30 19:09 | NUR ---
NURSE HAND-OFF REPORT: Important Events on Shift:[Patient was cleaned and changed. FIO2 40%] Patient Status: [Full code] Diet: [Nepro @35] Pending Orders: [] Pending Results/Labs:[] Pending MD notification:[] Latest Vital Signs: Temperature 97.0 , Pulse 59 , B/P 142 /65 , Respiratory Rate 22 , O2 SAT 100 , Mechanical Ventilator, O2 Flow Rate . Vital Sign Comment: [] EKG Rhythm: Sinus Bradycardia Rhythm change?: N Notified?: N -Dr Екатерина HATFIELD Response: No New Orders Received Latest Chavarria Fall Score: 60 Fall Risk: High Risk Safety Measures: Call light Within Reach, Bed Alarm Zone 2, Side Rails Side Rails x3, Bed position Low and Locked. Fall Precautions: Yellow Socks Report given to [ERASMO Forte].
--- NOTE | 2020-03-30 19:31 | General Progress Note ---
Subjective Constitutional: Reports: no symptoms HEENT: Reports: no symptoms Cardiovascular: Reports: no symptoms Respiratory: Reports: no symptoms Gastrointestinal/Abdominal: Reports: no symptoms Genitourinary: Reports: no symptoms Neurologic/Psychiatric: Reports: no symptoms Endocrine: Reports: no symptoms Hematologic/Lymphatic: Reports: no symptoms Allergies: Coded Allergies: No Known Allergies (Unverified , 10/10/17) Objective Last 24 Hour Vital Signs Date Time Temp Pulse Resp B/P (MAP) Pulse Ox O2 Delivery O2 Flow Rate FiO2 03/30/20 18:56 97.0 03/30/20 16:14 40 03/30/20 16:00 40 03/30/20 16:00 57 03/30/20 16:00 Mechanical Ventilator 03/30/20 16:00 97.0 59 22 142/65 (90) 100 59 03/30/20 14:41 97.9 03/30/20 14:11 60 139/70 03/30/20 13:00 63 23 65 03/30/20 12:00 64 03/30/20 12:00 97.9 60 24 139/70 (93) 100 60 03/30/20 12:00 65 03/30/20 12:00 Mechanical Ventilator 03/30/20 08:00 97.2 55 14 128/65 (86) 100 55 03/30/20 08:00 60 03/30/20 08:00 Mechanical Ventilator 03/30/20 08:00 65 03/30/20 07:16 56 14 100 03/30/20 05:49 64 125/63 03/30/20 05:00 60 16 100 03/30/20 04:00 65 03/30/20 04:00 64 03/30/20 04:00 Mechanical Ventilator 03/30/20 04:00 98.1 61 14 125/63 (83) 100 61 03/30/20 03:00 65 18 100 03/30/20 00:10 50 03/30/20 00:00 97.9 58 14 120/58 (78) 100 58 03/30/20 00:00 59 03/30/20 00:00 Mechanical Ventilator 03/29/20 23:25 64 14 100 03/29/20 21:43 65 129/66 03/29/20 21:00 64 14 100 03/29/20 20:00 65 03/29/20 20:00 50 03/29/20 20:00 97.5 60 14 129/66 (87) 100 60 03/29/20 20:00 Mechanical Ventilator Intake and Output 03/29/20 03/30/20 19:00 07:00 Intake Total 470 ml 350 ml Balance 470 ml 350 ml Intake Free Water 120 ml Tube Feeding 350 ml 350 ml Laboratory Tests 03/30/20 03:50: White Blood Count 7.1, Red Blood Count 2.66L, Hemoglobin 8.0L, Hematocrit 23.9L, Mean Corpuscular Volume 90, Mean Corpuscular Hemoglobin 30.2, Mean Corpuscular Hemoglobin Concent 33.6, Red Cell Distribution Width 14.0, Platelet Count 172, Mean Platelet Volume 7.3, Neutrophils (%) (Auto) 79.8H, Lymphocytes (%) (Auto) 15.3L, Monocytes (%) (Auto) 4.4, Eosinophils (%) (Auto) 0.1, Basophils (%) (Auto) 0.4, Sodium Level 140, Potassium Level 3.7, Chloride Level 102, Carbon Dioxide Level 31, Anion Gap 7, Blood Urea Nitrogen 78H, Creatinine 2.4H, Estimat Glomerular Filtration Rate 21.7, Glucose Level 89, Calcium Level 7.7L, Phosphorus Level 2.1L, Magnesium Level 2.1, Total Bilirubin 0.6, Aspartate Amino Transf (AST/SGOT) 31, Alanine Aminotransferase (ALT/SGPT) 14, Alkaline Phosphatase 135H, C-Reactive Protein, Quantitative 19.8H, Pro-B-Type Natriuretic Peptide > 85541M, Total Protein 5.2L, Albumin 1.1L, Globulin 4.1, Albumin/Globulin Ratio 0.3L 03/30/20 07:48: HIV (1&2) Antibody Rapid [Pending] Height (Feet): 5 Height (Inches): 3.00 Weight (Pounds): 128 General Appearance: WD/WN, lethargic EENT: normal ENT inspection Neck: supple Cardiovascular: normal rate, regular rhythm, no gallop/murmur, no JVD Respiratory/Chest: no respiratory distress, no accessory muscle use, decreased breath sounds Abdomen: normal bowel sounds, non tender, soft, no organomegaly, no mass Extremities: non-tender Neurologic: alert, responsive, other - Patient is attentive with eye contact with normal attention span but no verbal response Assessment/Plan Status Narrative Patient is awake alert afebrile hemodynamically stable with eye contact normal attention span no verbal response but plenty of facial expression today patient was not accepted by any cardiovascular unit due to off aortic dissection literature reveals the patient is Chase type B he is low risk for bleeding risk location age and smoking patient is type B was reading is substantially less than type a that include the aortic arch age is less than 67 more than 100 cigarettes in her life however in spite of the 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 other arteries especially lower extremity are not involved her blood pressure is controlled she is on statin patient is not a candidate for surgery risk for bleeding after surgery according to the literature is 3 years the main issue currently with the patient is her need for dialysis even though the dialysis now is on as needed basis she did need dialysis every few days if she will need in the future dialysis on a as needed basis but interval will be every few days she will not be able to return back to the extended care facility she came from the case will be discussed with the barrel roller repeat laboratory tests will be done in a.m Lucas Vera MD, MD Mar 30, 2020 19:31
[2020-03-30 20:00] VITALS: BP 150/82
[2020-03-30] MEDS: Dyna-Hex 2% Top Sol 2oz TOPIC SCH (20:11)
[2020-03-30] MEDS: traMADol 50mg tab ORAL PRN (20:47)
[2020-03-31] VITALS: BP 148/78
--- NOTE | 2020-03-31 | NUR ---
NURSE NOTES: VS WNL, no any distress noted. O2 sat- 100%. Repositioned pt per protocol.
--- NOTE | 2020-03-31 00:46 | Cardiology Progress Note ---
Subjective DATE OF SERVICE: Mar 25, 2020 (late entry) Heart rates remain in stable range; carvedilol therapy tolerated without significant bradycardia, in setting of aortic dissection. BP parameters stable. CT scan revealed extensive thoracoabd aortic dissection. Dialysis per renal Pt is s/p paracentesis (50cc) Objective Last 24 Hour Vital Signs reviewed HEENT: Thin Trach secretions RHYTHM: NSR, SB LUNGS: bilateral rhonchi - few, trach site clean CARDIAC: normal rate, regular rhythm, normal S1 and S2 ABDOMEN: normal bowel sounds, non tender, soft, G-Tube intact EXTREMITIES: normal range of motion, non-tender, normal inspection Laboratory Tests Test 03/30/20 03:50 03/30/20 07:48 White Blood Count 7.1 K/UL (4.8-10.8) Red Blood Count 2.66 M/UL (4.20-5.40) L Hemoglobin 8.0 G/DL (12.0-16.0) L Hematocrit 23.9 % (37.0-47.0) L Mean Corpuscular Volume 90 FL (80-99) Mean Corpuscular Hemoglobin 30.2 PG (27.0-31.0) Mean Corpuscular Hemoglobin Concent 33.6 G/DL (32.0-36.0) Red Cell Distribution Width 14.0 % (11.6-14.8) Platelet Count 172 K/UL (150-450) Mean Platelet Volume 7.3 FL (6.5-10.1) Neutrophils (%) (Auto) 79.8 % (45.0-75.0) H Lymphocytes (%) (Auto) 15.3 % (20.0-45.0) L Monocytes (%) (Auto) 4.4 % (1.0-10.0) Eosinophils (%) (Auto) 0.1 % (0.0-3.0) Basophils (%) (Auto) 0.4 % (0.0-2.0) Sodium Level 140 MMOL/L (136-145) Potassium Level 3.7 MMOL/L (3.5-5.1) Chloride Level 102 MMOL/L (98-107) Carbon Dioxide Level 31 MMOL/L (21-32) Anion Gap 7 mmol/L (5-15) Blood Urea Nitrogen 78 mg/dL (7-18) H Creatinine 2.4 MG/DL (0.55-1.30) H Estimat Glomerular Filtration Rate 21.7 mL/min (>60) Glucose Level 89 MG/DL (74-106) Calcium Level 7.7 MG/DL (8.5-10.1) L Phosphorus Level 2.1 MG/DL (2.5-4.9) L Magnesium Level 2.1 MG/DL (1.8-2.4) Total Bilirubin 0.6 MG/DL (0.2-1.0) Aspartate Amino Transf (AST/SGOT) 31 U/L (15-37) Alanine Aminotransferase (ALT/SGPT) 14 U/L (12-78) Alkaline Phosphatase 135 U/L (46-116) H C-Reactive Protein, Quantitative 19.8 mg/dL (0.00-0.90) H Pro-B-Type Natriuretic Peptide > 59487 pg/mL (0-125) H Total Protein 5.2 G/DL (6.4-8.2) L Albumin 1.1 G/DL (3.4-5.0) L Globulin 4.1 g/dL Albumin/Globulin Ratio 0.3 (1.0-2.7) L HIV (1&2) Antibody Rapid Pending Assessment/Plan Assessment/Plan Aortic dissections Sepsis with recovered shock Sinus node disease with bradycardia Hx pacemaker explant Ischemic cardiomyopathy - hx CABG? Paroxysmal Atrial Fib Respiratory failure with trach Hx thoracic aortic aneurysm repair ESRD Anemia HypoPO4 Will maintain current dose of beta flori (with hold parameter). clinical research monitor Vent support Antimicrobials DVT prophyl No urgent indication for pacemaker at present. HD/UF per renal Needs higher level of care ultimately for repair of aortic dissection, although may not be a surgical candidate Deni Willams MD Mar 31, 2020 00:46
--- NOTE | 2020-03-31 00:49 | Cardiology Progress Note ---
Subjective DATE OF SERVICE: Mar 30, 2020 Heart rates remain in stable range; carvedilol therapy tolerated without significant bradycardia, in setting of aortic dissection. BP parameters stable. CT scan revealed extensive thoracoabd aortic dissection- Nevis Type B Dialysis per renal Pt is s/p paracentesis (50cc) Objective Last 24 Hour Vital Signs Date Time Temp Pulse Resp B/P (MAP) Pulse Ox O2 Delivery O2 Flow Rate FiO2 03/31/20 00:00 98.4 69 21 148/78 (101) 96 69 03/31/20 00:00 Mechanical Ventilator 03/31/20 00:00 66 03/30/20 23:48 60 14 40 03/30/20 21:49 70 142/78 03/30/20 20:00 40 03/30/20 20:00 Mechanical Ventilator 03/30/20 20:00 97.9 72 22 150/82 (104) 99 72 03/30/20 20:00 72 03/30/20 19:51 68 19 40 03/30/20 18:56 97.0 03/30/20 16:14 40 03/30/20 16:00 40 03/30/20 16:00 57 03/30/20 16:00 Mechanical Ventilator 03/30/20 16:00 97.0 59 22 142/65 (90) 100 59 03/30/20 14:41 97.9 03/30/20 14:11 60 139/70 03/30/20 13:00 63 23 65 03/30/20 12:00 64 03/30/20 12:00 97.9 60 24 139/70 (93) 100 60 03/30/20 12:00 65 03/30/20 12:00 Mechanical Ventilator 03/30/20 08:00 97.2 55 14 128/65 (86) 100 55 03/30/20 08:00 60 03/30/20 08:00 Mechanical Ventilator 03/30/20 08:00 65 03/30/20 07:16 56 14 100 03/30/20 05:49 64 125/63 03/30/20 05:00 60 16 100 03/30/20 04:00 65 03/30/20 04:00 64 03/30/20 04:00 Mechanical Ventilator 03/30/20 04:00 98.1 61 14 125/63 (83) 100 61 03/30/20 03:00 65 18 100 HEENT: Thin Trach secretions RHYTHM: NSR, SB LUNGS: bilateral rhonchi - few, trach site clean CARDIAC: normal rate, regular rhythm, normal S1 and S2 ABDOMEN: normal bowel sounds, non tender, soft, G-Tube intact EXTREMITIES: normal range of motion, non-tender, normal inspection Laboratory Tests Test 03/30/20 03:50 03/30/20 07:48 White Blood Count 7.1 K/UL (4.8-10.8) Red Blood Count 2.66 M/UL (4.20-5.40) L Hemoglobin 8.0 G/DL (12.0-16.0) L Hematocrit 23.9 % (37.0-47.0) L Mean Corpuscular Volume 90 FL (80-99) Mean Corpuscular Hemoglobin 30.2 PG (27.0-31.0) Mean Corpuscular Hemoglobin Concent 33.6 G/DL (32.0-36.0) Red Cell Distribution Width 14.0 % (11.6-14.8) Platelet Count 172 K/UL (150-450) Mean Platelet Volume 7.3 FL (6.5-10.1) Neutrophils (%) (Auto) 79.8 % (45.0-75.0) H Lymphocytes (%) (Auto) 15.3 % (20.0-45.0) L Monocytes (%) (Auto) 4.4 % (1.0-10.0) Eosinophils (%) (Auto) 0.1 % (0.0-3.0) Basophils (%) (Auto) 0.4 % (0.0-2.0) Sodium Level 140 MMOL/L (136-145) Potassium Level 3.7 MMOL/L (3.5-5.1) Chloride Level 102 MMOL/L (98-107) Carbon Dioxide Level 31 MMOL/L (21-32) Anion Gap 7 mmol/L (5-15) Blood Urea Nitrogen 78 mg/dL (7-18) H Creatinine 2.4 MG/DL (0.55-1.30) H Estimat Glomerular Filtration Rate 21.7 mL/min (>60) Glucose Level 89 MG/DL (74-106) Calcium Level 7.7 MG/DL (8.5-10.1) L Phosphorus Level 2.1 MG/DL (2.5-4.9) L Magnesium Level 2.1 MG/DL (1.8-2.4) Total Bilirubin 0.6 MG/DL (0.2-1.0) Aspartate Amino Transf (AST/SGOT) 31 U/L (15-37) Alanine Aminotransferase (ALT/SGPT) 14 U/L (12-78) Alkaline Phosphatase 135 U/L (46-116) H C-Reactive Protein, Quantitative 19.8 mg/dL (0.00-0.90) H Pro-B-Type Natriuretic Peptide > 09448 pg/mL (0-125) H Total Protein 5.2 G/DL (6.4-8.2) L Albumin 1.1 G/DL (3.4-5.0) L Globulin 4.1 g/dL Albumin/Globulin Ratio 0.3 (1.0-2.7) L HIV (1&2) Antibody Rapid Pending Assessment/Plan Assessment/Plan Aortic dissection - Chase Type B Sepsis with recovered shock Sinus node disease with bradycardia Hx pacemaker explant Ischemic cardiomyopathy - hx CABG? Paroxysmal Atrial Fib Respiratory failure with trach Hx thoracic aortic aneurysm repair ESRD Anemia HypoPO4 Will maintain current dose of beta flori (with hold parameter). teletypesetter monitor Vent support Antimicrobials DVT prophyl No indication for pacemaker at present. HD/UF per renal Not a candidate for cardiothoracic surgery in this setting. Deni Willams MD Mar 31, 2020 00:49
--- NOTE | 2020-03-31 01:11 | NUR ---
NURSE NOTES: Cleaned pt, sponge bath given. Dressing changed for RUC permacath. Oral secretions suctioned.
[2020-03-31 04:00] VITALS: BP 120/62
[2020-03-31] MEDS: Sucralfate 1gm tab GT SCH ×4 (05:10→23:33)
[2020-03-31] MEDS: Metoclopramide 10mg/2ml Inj IVP SCH ×3 (05:11→21:41)
[2020-03-31] MEDS: Midodrine 10mg tab GT SCH ×3 (05:11→21:29)
[2020-03-31] MEDS: Zinc Oxide Oint 2oz TOPIC SCH ×3 (05:11→21:42)
[2020-03-31] MEDS: Carvedilol 6.25mg Tab GT SCH ×3 (05:11→21:41)
--- NOTE | 2020-03-31 05:46 | NUR ---
NURSE NOTES: Suctioned oral secretions. No hypoglycemic episodes noted.
--- NOTE | 2020-03-31 06:24 | Hematology/Onc Progress Note ---
Assessment/Plan Assessment/Plan # Leukocytosis, now with likely bacteremia, as per ID care --> Cxr: : Large left abiola consolidation/effusion --> wbc 30-->40-->27->30->29-->35->32-->28-->21->10.2-->6.6 --> ABX angelo/vanc-->tobra/edson/vanc-->dapto/ceftazadine->off abx --> smear reviewed --> ID recs are noted # Anemia of chronic disease due to underlying chronic medical issues, multifactorial --> Anemia workup has been reviewed, cw acd --> No evidence of hemolysis is noted, peripheral smear has been reviewed. --> Hgb goal >7. Transfuse prn. --> Epogen required in prior --> Medications have been reviewed --> low threshold for gi evaluation in case has occult + --> hgb 1.9-->5-->7.1-->8.8-->8.1->7.5-> 8.2-->6. 8-->9.2-->8.4->7.7-->7.1-->8.8->8.7 --> 1 unit prbc1/, 2 units 01/15, 03/02, 03/18, 03/24 --> gi eval as needed # Elevated tumor markers, cea and ca 19.9 --> reviewed prior 01/27/20 cat scan a/p --> no masses noted, hold off further extensive w/u # Thrombocytopenia likely reactive v medication induced --> plt 200-->129->91-->86->100->78-->86-->87-->125->135 --> transfuse as needed --> r/o dic, has been ruled out --> anticoag as needed # Coagulopathy with inr 1.5 --> consider vit k/ffp as needed preprocedure --> labs noted # Aortic dissection as seen on Ct ==> when stable, consider transfer hloc # JAVIER initially >2 --> on ivfs --> per renal # Elevated d-dimer, likely infection related --> venous duplex prior neg --> in prior neg # Dysphagia s/p peg --> as per gi # Thoracic aortic dissection --> s/p repair early 2017 # Chronic Resp failure -> s/p trach/vent # Psychiatric history on ativan/haldol # [place] resident # Dvt ppx --> scds The timing of this note does not necessarily reflect the time of the patient was seen. Greatly appreciate consultation. Subjective HEENT: Denies: no symptoms, eye pain, blurred vision, tearing, double vision, ear pain, ear discharge, nose pain, nose congestion, throat pain, throat swelling, mouth pain, mouth swelling, other Cardiovascular: Denies: no symptoms, chest pain, edema, irregular heart rate, lightheadedness, palpitations, syncope, other Respiratory: Denies: no symptoms, cough, shortness of breath, SOB with excertion, SOB at rest, sputum, wheezing, other Gastrointestinal/Abdominal: Denies: no symptoms, abdomen distended, abdominal pain, black stools, tarry stools, blood in stool, constipated, diarrhea, difficulty swallowing, nausea, poor appetite, poor fluid intake, rectal bleeding, vomiting, other Genitourinary: Denies: no symptoms, burning, discharge, frequency, flank pain, hematuria, incontinence, pain, urgency, other Neurologic/Psychiatric: Denies: no symptoms, anxiety, depressed, emotional problems, headache, numbness, paresthesia, pre-existing deficit, seizure, tingling, tremors, weakness, other Hematologic/Lymphatic: Denies: no symptoms, anemia, easy bleeding, easy bruising, adenopathy, other Allergies: Coded Allergies: No Known Allergies (Unverified , 10/10/17) Subjective 03/04 for 1 unit transfusion this am as hgb remains low, wbc better 03/05 egd was done did show large nonbleeding gastric ulcer, high tumor markers 03/06 nv, with davis overnight, bp remains stable, with occult + stool, roman Rn 03/09 nv, remains stable, on vanc/tobra/edson, meds reviewed, no bleeding 03/10 nv, on vent, no bleeding, receiving abx, no night sweats 03/11 nv, dw surgeon and pcp, with aortic dissection to transfer [facility] when stable 03/12 nv, labs reviewed, wbc 21, hgb 7.5, otherwise is comfortable 03/13 nv, labs noted, no bleeding, wbc 13, hgb improved, meds reviewed 03/15 nv, meds reviewed, labs noted, no bleeding, on vent 03/16 nv/tv, peg, meds noted, hgb remains stable, improved to 10 2/ s/p egd, with gastric ulceration noted, hgb stable 03/18 labs noted, hgb 6.8, to get 1 unit prbc, meds reviewed 03/19 hgb 9.2, plt 78, no hemoptysis, is comfortable 03/20 labs reviewed, meds noted, no bleeding, dw rn 03/22 wound treatment, vent, with gtube, labs reviewed, dw rn 03/23 labs reviewed, meds noted, no bleeding, with gt 03/24 large bm overnight that was bloody, hgb 7.1, dw rn 03/25 labs pending this am, comfortable, nsr, meds noted 03/26 nv, vent, with gt, labs reviewed, hgb 8.8 03/27 nv, vent, labs reviewed, with gt, hgb stable 03/29 nv, vent, labs pending, meds reviewed, no bleeding 03/30 nv, t/v, with gt feeds, labs reviewed, meds noted 03/31 nv, t/v, oral secretions were suctioned, meds reviewed Objective Objective Current Medications Medications (Trade) Dose Ordered Sig/Penny Route PRN Reason Start Time Stop Time Status Last Admin Dose Admin Acetaminophen (Tylenol) 650 mg Q6H PRN GT Mild Pain (Pain Scale 1-3) 03/02/20 22:30 04/01/20 22:29 03/29/20 03:43 Acetaminophen (Tylenol) 650 mg Q6H PRN GT Temp >100.5 03/03/20 03:00 04/01/20 22:29 03/23/20 21:49 Aspirin (ASA) 81 mg DAILY GT 03/07/20 09:00 04/21/20 08:59 03/30/20 08:59 Carvedilol (Coreg) 6.25 mg EVERY 8 HOURS GT 03/20/20 22:00 04/13/20 20:59 03/31/20 05:11 Chlorhexidine Gluconate (Ling-Hex 2%) 1 applic DAILY@1999 TOPIC 03/03/20 20:00 06/01/20 19:59 03/30/20 20:11 Dextrose (Dextrose 50%) 25 ml Q30M PRN IV Hypoglycemia 03/15/20 07:30 06/13/20 07:29 Dextrose (Dextrose 50%) 50 ml Q30M PRN IV Hypoglycemia 03/15/20 07:30 06/13/20 07:29 Hydralazine HCl (Apresoline) 25 mg Q6H PRN GT For High Blood Pressure 03/02/20 22:00 05/31/20 21:59 Hydrocortisone (Anusol HC) 25 mg Q12HR RECTAL 03/23/20 21:00 06/21/20 08:59 03/30/20 20:11 Hydromorphone HCl (Dilaudid) 0.5 mg Q4H PRN IVP For Pain 03/26/20 19:30 04/02/20 19:29 03/30/20 22:56 Loperamide HCl (Imodium) 2 mg Q6H PRN GT Diarrhea 03/06/20 12:45 04/05/20 12:44 03/06/20 13:01 Metoclopramide HCl (Reglan) 5 mg Q8HR IVP 03/04/20 11:45 04/03/20 11:44 03/31/20 05:11 Midodrine (Pro-Amatine) 10 mg EVERY 8 HOURS GT 03/17/20 22:00 06/01/20 12:59 03/24/20 13:02 Pantoprazole (Protonix) 40 mg EVERY 12 HOURS IVP 03/04/20 21:00 04/02/20 20:59 03/30/20 20:11 Polyethylene Glycol (Miralax) 17 gm BEDTIME PRN GT Constipation 03/02/20 22:00 04/01/20 21:59 Sodium Hypochlorite (Dakin's Quarter Strength) 1 applic DAILY TOPIC 03/04/20 09:00 04/03/20 08:59 03/30/20 10:17 Sucralfate (Carafate) 1 gm EVERY 6 HOURS GT 03/17/20 18:00 06/09/20 08:59 03/31/20 05:10 Tramadol HCl (Ultram) 50 mg Q6H PRN ORAL Moderate Pain (Pain Scale 4-6) 03/26/20 19:30 04/02/20 19:29 03/30/20 20:47 Zinc Oxide (Zinc Oxide) 1 applic Q8HR TOPIC 03/25/20 22:00 06/22/20 17:59 03/31/20 05:11 Last 24 Hour Vital Signs Date Time Temp Pulse Resp B/P (MAP) Pulse Ox O2 Delivery O2 Flow Rate FiO2 03/31/20 05:11 63 136/58 03/31/20 04:00 64 03/31/20 04:00 40 03/31/20 04:00 97.5 68 16 120/62 (81) 99 68 03/31/20 04:00 Mechanical Ventilator 03/31/20 03:37 60 14 40 03/31/20 00:00 98.4 69 21 148/78 (101) 96 69 03/31/20 00:00 Mechanical Ventilator 03/31/20 00:00 66 03/30/20 23:48 60 14 40 03/30/20 21:49 70 142/78 03/30/20 20:00 40 03/30/20 20:00 Mechanical Ventilator 03/30/20 20:00 97.9 72 22 150/82 (104) 99 72 03/30/20 20:00 72 03/30/20 19:51 68 19 40 03/30/20 18:56 97.0 03/30/20 16:14 40 03/30/20 16:00 40 03/30/20 16:00 57 03/30/20 16:00 Mechanical Ventilator 03/30/20 16:00 97.0 59 22 142/65 (90) 100 59 03/30/20 14:41 97.9 03/30/20 14:11 60 139/70 03/30/20 13:00 63 23 65 03/30/20 12:00 64 03/30/20 12:00 97.9 60 24 139/70 (93) 100 60 03/30/20 12:00 65 03/30/20 12:00 Mechanical Ventilator 03/30/20 08:00 97.2 55 14 128/65 (86) 100 55 03/30/20 08:00 60 03/30/20 08:00 Mechanical Ventilator 03/30/20 08:00 65 03/30/20 07:16 56 14 100 03/30/20 05:49 64 125/63 03/30/20 05:00 60 16 100 03/30/20 04:00 65 03/30/20 04:00 64 03/30/20 04:00 Mechanical Ventilator 03/30/20 04:00 98.1 61 14 125/63 (83) 100 61 03/30/20 03:00 65 18 100 03/30/20 00:10 50 03/30/20 00:00 97.9 58 14 120/58 (78) 100 58 03/30/20 00:00 59 03/30/20 00:00 Mechanical Ventilator 03/29/20 23:25 64 14 100 03/29/20 21:43 65 129/66 03/29/20 21:00 64 14 100 03/29/20 20:00 65 03/29/20 20:00 50 03/29/20 20:00 97.5 60 14 129/66 (87) 100 60 03/29/20 20:00 Mechanical Ventilator 03/29/20 19:00 61 15 100 03/29/20 16:18 58 03/29/20 16:00 Mechanical Ventilator 03/29/20 16:00 50 03/29/20 16:00 97.7 60 16 124/58 (80) 94 60 03/29/20 15:20 66 19 100 03/29/20 13:49 68 135/63 03/29/20 12:00 64 03/29/20 12:00 97.7 66 27 122/57 (78) 96 66 03/29/20 12:00 50 03/29/20 12:00 Mechanical Ventilator 03/29/20 11:06 58 14 100 03/29/20 08:00 97.7 57 14 115/57 (76) 99 57 03/29/20 08:00 50 03/29/20 08:00 Mechanical Ventilator 03/29/20 07:43 58 03/29/20 07:28 61 16 100 Intake and Output 03/30/20 03/31/20 19:00 07:00 Intake Total 310 ml 485 ml Balance 310 ml 485 ml Intake Free Water 100 ml 100 ml Tube Feeding 210 ml 385 ml # Voids 1 Labs Test 03/30/20 03:50 03/30/20 07:48 White Blood Count 7.1 K/UL (4.8-10.8) Red Blood Count 2.66 M/UL (4.20-5.40) Hemoglobin 8.0 G/DL (12.0-16.0) Hematocrit 23.9 % (37.0-47.0) Mean Corpuscular Volume 90 FL (80-99) Mean Corpuscular Hemoglobin 30.2 PG (27.0-31.0) Mean Corpuscular Hemoglobin Concent 33.6 G/DL (32.0-36.0) Red Cell Distribution Width 14.0 % (11.6-14.8) Platelet Count 172 K/UL (150-450) Mean Platelet Volume 7.3 FL (6.5-10.1) Neutrophils (%) (Auto) 79.8 % (45.0-75.0) Lymphocytes (%) (Auto) 15.3 % (20.0-45.0) Monocytes (%) (Auto) 4.4 % (1.0-10.0) Eosinophils (%) (Auto) 0.1 % (0.0-3.0) Basophils (%) (Auto) 0.4 % (0.0-2.0) Sodium Level 140 MMOL/L (136-145) Potassium Level 3.7 MMOL/L (3.5-5.1) Chloride Level 102 MMOL/L (98-107) Carbon Dioxide Level 31 MMOL/L (21-32) Anion Gap 7 mmol/L (5-15) Blood Urea Nitrogen 78 mg/dL (7-18) Creatinine 2.4 MG/DL (0.55-1.30) Estimat Glomerular Filtration Rate 21.7 mL/min (>60) Glucose Level 89 MG/DL (74-106) Calcium Level 7.7 MG/DL (8.5-10.1) Phosphorus Level 2.1 MG/DL (2.5-4.9) Magnesium Level 2.1 MG/DL (1.8-2.4) Total Bilirubin 0.6 MG/DL (0.2-1.0) Aspartate Amino Transf (AST/SGOT) 31 U/L (15-37) Alanine Aminotransferase (ALT/SGPT) 14 U/L (12-78) Alkaline Phosphatase 135 U/L (46-116) C-Reactive Protein, Quantitative 19.8 mg/dL (0.00-0.90) Pro-B-Type Natriuretic Peptide > 02169 pg/mL (0-125) Total Protein 5.2 G/DL (6.4-8.2) Albumin 1.1 G/DL (3.4-5.0) Globulin 4.1 g/dL Albumin/Globulin Ratio 0.3 (1.0-2.7) HIV (1&2) Antibody Rapid Negative (NEGATIVE) Height (Feet): 5 Height (Inches): 3.00 Weight (Pounds): 128 Objective Physical Exam: Vitals: reviewed General: NAD HEENT: nc, at Neck: supple ++trach/vent Chest: clear breath sounds bilaterally Cardiovascular: RRR, no s3, s4 Abdomen: soft, nontender, nd +gtube Extremities: no cce, normal range of motion Neuro: alert Evan Muhammad MD Mar 31, 2020 06:24
--- NOTE | 2020-03-31 06:55 | General Progress Note ---
Subjective ROS Limited/Unobtainable: No Allergies: Coded Allergies: No Known Allergies (Unverified , 10/10/17) Objective Last 24 Hour Vital Signs Date Time Temp Pulse Resp B/P (MAP) Pulse Ox O2 Delivery O2 Flow Rate FiO2 03/31/20 05:11 63 136/58 03/31/20 04:00 64 03/31/20 04:00 40 03/31/20 04:00 97.5 68 16 120/62 (81) 99 68 03/31/20 04:00 Mechanical Ventilator 03/31/20 03:37 60 14 40 03/31/20 00:00 98.4 69 21 148/78 (101) 96 69 03/31/20 00:00 Mechanical Ventilator 03/31/20 00:00 66 03/30/20 23:48 60 14 40 03/30/20 21:49 70 142/78 03/30/20 20:00 40 03/30/20 20:00 Mechanical Ventilator 03/30/20 20:00 97.9 72 22 150/82 (104) 99 72 03/30/20 20:00 72 03/30/20 19:51 68 19 40 03/30/20 18:56 97.0 03/30/20 16:14 40 03/30/20 16:00 40 03/30/20 16:00 57 03/30/20 16:00 Mechanical Ventilator 03/30/20 16:00 97.0 59 22 142/65 (90) 100 59 03/30/20 14:41 97.9 03/30/20 14:11 60 139/70 03/30/20 13:00 63 23 65 03/30/20 12:00 64 03/30/20 12:00 97.9 60 24 139/70 (93) 100 60 03/30/20 12:00 65 03/30/20 12:00 Mechanical Ventilator 03/30/20 08:00 97.2 55 14 128/65 (86) 100 55 03/30/20 08:00 60 03/30/20 08:00 Mechanical Ventilator 03/30/20 08:00 65 03/30/20 07:16 56 14 100 Intake and Output 03/30/20 03/31/20 19:00 07:00 Intake Total 310 ml 485 ml Balance 310 ml 485 ml Intake Free Water 100 ml 100 ml Tube Feeding 210 ml 385 ml # Voids 1 Laboratory Tests 03/30/20 07:48: HIV (1&2) Antibody Rapid Negative Height (Feet): 5 Height (Inches): 3.00 Weight (Pounds): 128 General Appearance: no apparent distress EENT: normal ENT inspection Neck: supple Cardiovascular: normal rate Respiratory/Chest: decreased breath sounds Abdomen: normal bowel sounds, non tender, soft Extremities: non-tender Assessment/Plan Problem List: (1) Hx of CABG ICD Codes: Z95.1 - Presence of aortocoronary bypass graft SNOMED: 070984716, 623182112 (2) History of tracheostomy ICD Codes: Z98.890 - Other specified postprocedural states SNOMED: 318310103, 202964480 (3) PEG (percutaneous endoscopic gastrostomy) status ICD Codes: Z93.1 - Gastrostomy status SNOMED: 202366561, 094484224 (4) Renal failure ICD Codes: N19 - Unspecified kidney failure SNOMED: 44030372, 437157817 (5) Severe anemia ICD Codes: D64.9 - Anemia, unspecified SNOMED: 809689806 Assessment/Plan: s/p EGD gastric ulcer on ppi and carafate fu H&H GTF s/p EGD GT tightened at the bedside repeat labs will fu Inder Mccauley MD Mar 31, 2020 06:55
--- NOTE | 2020-03-31 07:00 | NUR ---
NURSE NOTES: Received patient report from Jose C Forte. Patient is AO x1, in bed asleep at this time. No pain or discomfort noted at this time. Patient on trach to vent Shiley 7 AC 14 TV500 FiO2 40% PEEP 5. Breathing is even and unlabored with no signs of respiratory distress. Patient with LFA 20G and L hand 22 G, patent and intact. Bed in lowest position, locked with side rails x2 up. Call light within reach.
--- NOTE | 2020-03-31 07:15 | NUR ---
NURSE HAND-OFF REPORT: Important Events on Shift: No acute changes noted, Pt o2 sat- 100% fio2-40%. Still with yellow discharge on Gtube site, not candidate for thoracic aqortic dissection per Raven Dong Patient Status: Stable and guarded Diet: GTF Pending Orders: None Pending Results/Labs: None Pending MD notification: None Latest Vital Signs: Temperature 97.5 , Pulse 63 , B/P 136 /58 , Respiratory Rate 16 , O2 SAT 99 , Mechanical Ventilator, O2 Flow Rate . Vital Sign Comment: WNL EKG Rhythm: Sinus Rhythm Rhythm change?: N Notified?: N -Dr Екатерина HATFIELD Response: No New Orders Received Latest [place] Fall Score: 60 Fall Risk: High Risk Safety Measures: Call light Within Reach, Bed Alarm Zone 2, Side Rails Side Rails x3, Bed position Low and Locked. Fall Precautions: Yellow Socks Report given to [Esteban Ang RN].
[2020-03-31 08:00] VITALS: BP 128/61
--- NOTE | 2020-03-31 08:04 | NUR ---
RD ASSESSMENT & RECOMMENDATIONS SEE CARE ACTIVITY FOR COMPLETE ASSESSMENT DAILY ESTIMATED NEEDS: Needs based on Critical care, wound, renal dysfunction 59.5 kg 27-22 kcals/kg 9747-6725 total kcals W/ HD (1.5-2.0) g protein/kg 89-119 g total protein Fluid per MD NUTRITION DIAGNOSIS: * Swallowing difficulty R/T dysphagia, respiratory status as evidenced by vent dep via trach, GT Dep. * Increase kcal and pro needs r/t wound healing, renal dysfunction as evidenced by h/o stage 4 sacral wound, and HD. CURRENT TF: Nepro @ 35ml/hr x 24 hrs ENTERAL NUTRITION RECOMMENDATIONS: Nepro @40ml/hr x 24 hrs + Prosource 1pkt BID to provide 960ml, 1728kcal, 78g+22g prot, 779ml free water * INCREASE goal rate to 40ml/hr. * Add Prosource 1pkt BID to better meet increased protein needs (additional 11g prot/each) * Water flush per MD/ HOB over 30 degrees ADDITIONAL RECOMMENDATIONS: * Calibrated bed scale, wts fluctuatinkg-> 68kg->76.5kg now * Monitor for HD continuity * WC eval-> w/ TF orders add FRANKLIN in 4oz H2O BID via GT Vit C per nephrology, add Nephrovite 1 tab daily. * Monitor BGs closely for hypoglycemia On Bedside BG checks * Monitor lytes, replete as needed- phos low
[2020-03-31] MEDS: Aspirin Baby 81mg GT SCH (08:14)
[2020-03-31] MEDS: Pantoprazole Inj IVP SCH (08:14)
[2020-03-31] MEDS: Hydrocortisone 25mg supp RECTAL SCH ×2 (08:14→20:13)
[2020-03-31] MEDS: Dakin's 0.125% Soln (Quarter Strength) 16oz TOPIC SCH (08:14)
--- NOTE | 2020-03-31 08:15 | Infectious Diseases Prog Note ---
Assessment/Plan 49yo F with: MDR Kleb pna bacteremia AMS Anemia to 1.9 on admission 03/02 Leukocytosis to 40, improving GPC bacteremia UTI Pneumonia c/b mod-large R pleural effusion and small L pleural effusion - compressive atelectasis Hypotension 03/02 BCx 1/2 +Staph epi, 12 +Staph haemolyticus (m/l skin colonizers) UA+, UCx >100k P.stuartii (S-angelo) & CRE P.mirablis (R-polyB/colistin, S- tobramycin, per [facility] is "intrinsically resistant to Avycaz/Zerbaxa" not clear why to me and they are unable to elaborate more) COVID rapid neg, PCR neg CXR: Tracheostomy again demonstrated. Interim placement of a right jugular tunneled dialysis catheter. There is infiltrate and volume loss in the left lung, particularly in the perihilar region, suprahilar region, and base. Consolidation at the lung base is similar. The perihilar and suprahilar region consolidation is new. The right lung pleural space are clear. C.dif neg 03/03 BCx NTD 03/06 BCx 2/2 +MDR Kleb pna (arnett-R, including R-polyB, colistin), 02/14 +E.faecium VRE (R-amp, S-linezolid) 03/08 BCx NTD 03/09 CT CAP: Very limited exam, as described, due to massive anasarca. This could limit visualization of the discrete fluid collection such as an abscess. Extensive thoracoabdominal aortic dissection, as described above. Current flap begins just distal to the left subclavian artery origin; per report, there is history of surgical repair so there may have been surgical repair of the ascending thoracic aorta. Bilateral pleural effusions, slightly smaller than on earlier exams. Extensive atelectasis as a result. Extensive pulmonary par enchymal disease as detailed above. This may reflect pneumonia or pulmonary edema or both. Evidence of pulmonary arterial hypertension, with dilatation of the pulmonary artery. Considerable ascites fluid. 03/11 Chest US: Small right, trace left pleural effusions, insufficient for safe thoracentesis AF Sepsis Leukocytosis Hypoxia on vent Pneumonia c/b L pleural effusion (recurrent, prior determined to be transudative) - s/p thora 01/21, 1050cc removed Volume overload, BNP >35,0000, likely 2/2 progressive CKD --> ESRD ?Pancreatitis, Lipase >2000 Acute anemia to 5s CONS bacteremia, ?contaminant Aflutter w/ RVR 01/13 BCx 2/2 +S. epi COVID PCR neg Flu neg CXR: Large left pleural effusion. Bilateral interstitial and airspace infiltrates versus edema MRSA nares neg 01/16 BCx NTD 01/17 BCx /2 +Staph auricularis (skin colonizer) 01/18 Resp cx +MDR CRE PsA (S-gent, I-colistin, R-polyB) (Intermediate to Zerbaxa, Resistant to Avycaz) 01/18 C.dif neg 01/18 CXR: Similar opacification of the left hemithorax likely representing combination of pleural effusion with atelectasis versus pneumonia/edema. Decreased but persistent hazy opacity throughout the right lung may represent edema versus infectious/inflammatory process. 01/20 BCx NTD 01/21 L thora 1050 cc removed, cx NTD 01/25 Wound cx from Gtube site +CRE Kleb pna (arnett-R) and MDR PsA (colonizers) 01/26 CT A/P: Limited exam, due to severe diffuse anasarca. Ascites. Bilateral pleural effusions. Basilar pulmonary atelectatic changes and consolidation. Gastrostomy. Atrophic left kidney with a nephroureteral stents again demonstrated. Possible retrococcygeal decubitus changes. Correlate with clinical findings, consider MRI if there is concern for sacral osteomyelitis. Right hip intertrochanteric fracture, also previously demonstrated. Left femoral dialysis catheter. Nonspecific right lobe liver lesion is unchanged, not well- demonstrated. ctasia bordering on aneurysmal dilatation and possible chronic dissection of the distal thoracic aorta, also previously described. JAVIER on CKD On previous admission Sep-Oct 2019 required HD for short period Going to start HD this admission again R/o COVID 01/14 COVID PCR neg 12/29 neg at [facility] per report H/o UTI 10/15 u/a wbc 30-40, nit neg, leuk +3; ucx ESBL P. mirablis, ESBL M. morganii //20 u/a wbc tnct, nit neg, leuk +3; ucx >100k MDR P. stuarti (S Ceftriaxone, Meropenem) 8/25 u/a wbc tnct, nit neg, leuk ; ucx >100k VRE 10/15/19 u/a wbc tnct; ucx >100k ESBL P. stuarti (S ertapenem, aztreonam) H/o transudative pleural effusion 11/28 Sp Thora (w: 169, PMN: 2%, L: 49% , LDH: 57, prot 2.5); cx Neg H/o PNA 10/15/19 Resp cx ESBL P. mirabilis, MDR P.a. (S only to Gent) 09/22 Resp cx + MDR PsA (S-gent; I-colistin; R-levofloxacin, Zosyn, angelo) 09/16/19 Sp cx ESBL P. mirablis H/o PPM site (pocket) infection and pocket abscess 2ry to S. epi-11/2018, sp >6weeks IV vancomycin 11/27 SP ABBIE: no evidence for vegetation on any of the valves 11/26/18 SP PPM removal: OR findings:The fibrous capsule enclosing the generator was then opened and there was a [id number] amount of yellowish fluid drainage. The generator was then removed.Atrial and ventricular leads were detached. The necrotic tissue of the pocket was then removed and the pocket was flushed with an antibiotic solution. Capsule, wound tissue and lead tip cx: Neg 2d echo: no vegetation seen US chest: 4.6 x 3.4 x 0.9 cm hypoechoic/anechoic area overlying left chest pacemaker power pack. This could represent either a discrete fluid collection or a focal area of very edematous tissue. Infected fluid pocket also possible. 11/18 Bcx 3/4 S. epi; 11/20 Bcx neg; 11/24 Bcx Neg; 11/27 Bcx Neg CAD s/p CABG GERD/gastritis Afib HTN Dysphagia sp GT Aortic dissection s/p repair 2017 S/p PPM Parkinson's Disease Schizophrenia Anxiety COPD Chronic resp failure s/p trach Hx of tracheal bleeding [place] resident ([facility]) VRE and MRSA colonized Plan: Cont to monitor off abx 03/21 SP daptomycin #12, Avycaz #16 for VRE and MDR Kleb bacteremia 03/16 SP tobramycin IV #10 for resistant UTI 03/10/20 SP edson #4 empiric, vanco #9 01/31 SP angelo/inh tobra #10 for pna 01/23 SP vanco IV #10 given CONS/GPC bacteremia 01/16 SP Zosyn #2 01/14 SP dex 10mg in ED 12/10 SP IV Gentamycin #10 12/07 SP Meropenem #10 12/01 SP IV Vancomycin #5 11/28 Sp Cefepime #2 and IV Gentamycin x1 Monitor CBC/CMP Monitor temp curve, hemodynamics Monitor resp status D/w RN Thank you for this consult. [facility] will continue to follow. Subjective Allergies: Coded Allergies: No Known Allergies (Unverified , 10/10/17) AF NAD on vent % PEEP 5 Objective Last 24 Hour Vital Signs Date Time Temp Pulse Resp B/P (MAP) Pulse Ox O2 Delivery O2 Flow Rate FiO2 03/31/20 05:11 63 136/58 03/31/20 04:00 64 03/31/20 04:00 40 03/31/20 04:00 97.5 68 16 120/62 (81) 99 68 03/31/20 04:00 Mechanical Ventilator 03/31/20 03:37 60 14 40 03/31/20 00:00 98.4 69 21 148/78 (101) 96 69 03/31/20 00:00 Mechanical Ventilator 03/31/20 00:00 66 03/30/20 23:48 60 14 40 03/30/20 21:49 70 142/78 03/30/20 20:00 40 03/30/20 20:00 Mechanical Ventilator 03/30/20 20:00 97.9 72 22 150/82 (104) 99 72 03/30/20 20:00 72 03/30/20 19:51 68 19 40 03/30/20 18:56 97.0 03/30/20 16:14 40 03/30/20 16:00 40 03/30/20 16:00 57 03/30/20 16:00 Mechanical Ventilator 03/30/20 16:00 97.0 59 22 142/65 (90) 100 59 03/30/20 14:41 97.9 03/30/20 14:11 60 139/70 03/30/20 13:00 63 23 65 03/30/20 12:00 64 03/30/20 12:00 97.9 60 24 139/70 (93) 100 60 03/30/20 12:00 65 03/30/20 12:00 Mechanical Ventilator Height (Feet): 5 Height (Inches): 3.00 Weight (Pounds): 128 Gen: NAD HEENT: NCAT, trach Pulm: BL chest rise on vent Abd: Soft, NTND, +PEG Ext: No c/c/e Skin: No visible rashes Neuro: Awake, minimally interactive Lines: R chest Permacath dressing c/d/i Current Medications Medications (Trade) Dose Ordered Sig/Penny Route PRN Reason Start Time Stop Time Status Last Admin Dose Admin Acetaminophen (Tylenol) 650 mg Q6H PRN GT Mild Pain (Pain Scale 1-3) 03/02/20 22:30 04/01/20 22:29 03/29/20 03:43 Acetaminophen (Tylenol) 650 mg Q6H PRN GT Temp >100.5 03/03/20 03:00 04/01/20 22:29 03/23/20 21:49 Aspirin (ASA) 81 mg DAILY GT 03/07/20 09:00 04/21/20 08:59 03/30/20 08:59 Carvedilol (Coreg) 6.25 mg EVERY 8 HOURS GT 03/20/20 22:00 04/13/20 20:59 03/31/20 05:11 Chlorhexidine Gluconate (Ling-Hex 2%) 1 applic DAILY@1999 TOPIC 03/03/20 20:00 06/01/20 19:59 03/30/20 20:11 Dextrose (Dextrose 50%) 25 ml Q30M PRN IV Hypoglycemia 03/15/20 07:30 06/13/20 07:29 Dextrose (Dextrose 50%) 50 ml Q30M PRN IV Hypoglycemia 03/15/20 07:30 06/13/20 07:29 Hydralazine HCl (Apresoline) 25 mg Q6H PRN GT For High Blood Pressure 03/02/20 22:00 05/31/20 21:59 Hydrocortisone (Anusol HC) 25 mg Q12HR RECTAL 03/23/20 21:00 06/21/20 08:59 03/30/20 20:11 Hydromorphone HCl (Dilaudid) 0.5 mg Q4H PRN IVP For Pain 03/26/20 19:30 04/02/20 19:29 03/30/20 22:56 Loperamide HCl (Imodium) 2 mg Q6H PRN GT Diarrhea 03/06/20 12:45 04/05/20 12:44 03/06/20 13:01 Metoclopramide HCl (Reglan) 5 mg Q8HR IVP 03/04/20 11:45 04/03/20 11:44 03/31/20 05:11 Midodrine (Pro-Amatine) 10 mg EVERY 8 HOURS GT 03/17/20 22:00 06/01/20 12:59 03/24/20 13:02 Pantoprazole (Protonix) 40 mg EVERY 12 HOURS IVP 03/04/20 21:00 04/02/20 20:59 03/30/20 20:11 Polyethylene Glycol (Miralax) 17 gm BEDTIME PRN GT Constipation 03/02/20 22:00 04/01/20 21:59 Sodium Hypochlorite (Dakin's Quarter Strength) 1 applic DAILY TOPIC 03/04/20 09:00 04/03/20 08:59 03/30/20 10:17 Sucralfate (Carafate) 1 gm EVERY 6 HOURS GT 03/17/20 18:00 06/09/20 08:59 03/31/20 05:10 Tramadol HCl (Ultram) 50 mg Q6H PRN ORAL Moderate Pain (Pain Scale 4-6) 03/26/20 19:30 04/02/20 19:29 03/30/20 20:47 Zinc Oxide (Zinc Oxide) 1 applic Q8HR TOPIC 03/25/20 22:00 06/22/20 17:59 03/31/20 05:11 Ro Pack M.D. Mar 31, 2020 08:15
[2020-03-31] MEDS: Hydromorphone 0.5mg/0.5ml inj IVP PRN ×3 (08:19→23:34)
--- NOTE | 2020-03-31 10:44 | NUR ---
CASE MANAGEMENT:REVIEW 03/31/20 SI: SEPSIS. BACTEREMIA. AORTIC DISSECTION ANEMIA...S/P 14 UNITS PRBC'S. TRACH/VENT/GTUBE. ESRD/HD 97.9 54 16 128/61 100% ON VENT SUPPORT W/40% FIO2 IS: COREG GT Q8HRS ULTRAM GT Q6HRS PRN MIDODRINE GT Q8HRS CARAFATE GT Q6HRS ASA GT QD IV PROTONIX Q12 IV REGLAN Q8HRS ANUSOL MA Q12 : STEP DOWN UNIT DCP: FROM [facility] PLAN: CARAFATE FOR GASTRIC ULCER MONITOR H/H
--- NOTE | 2020-03-31 11:12 | Pulmonology Progress Note ---
Subjective ROS Limited/Unobtainable: No Interval Events: none major reported per nursing Constitutional: Reports: fever, other - resolved HEENT: Repors: no symptoms Respiratory: Reports: no symptoms Cardiovascular: Reports: no symptoms Gastrointestinal/Abdominal: Reports: diarrhea Allergies: Coded Allergies: No Known Allergies (Unverified , 10/10/17) All Systems: reviewed and negative except above Objective Last 24 Hour Vital Signs Date Time Temp Pulse Resp B/P (MAP) Pulse Ox O2 Delivery O2 Flow Rate FiO2 03/31/20 08:24 54 03/31/20 08:00 Mechanical Ventilator 03/31/20 08:00 40 03/31/20 08:00 97.9 59 16 128/61 (83) 100 59 03/31/20 05:11 63 136/58 03/31/20 04:00 64 03/31/20 04:00 40 03/31/20 04:00 97.5 68 16 120/62 (81) 99 68 03/31/20 04:00 Mechanical Ventilator 03/31/20 03:37 60 14 40 03/31/20 00:00 98.4 69 21 148/78 (101) 96 69 03/31/20 00:00 Mechanical Ventilator 03/31/20 00:00 66 03/30/20 23:48 60 14 40 03/30/20 21:49 70 142/78 03/30/20 20:00 40 03/30/20 20:00 Mechanical Ventilator 03/30/20 20:00 97.9 72 22 150/82 (104) 99 72 03/30/20 20:00 72 03/30/20 19:51 68 19 40 03/30/20 18:56 97.0 03/30/20 16:14 40 03/30/20 16:00 40 03/30/20 16:00 57 03/30/20 16:00 Mechanical Ventilator 03/30/20 16:00 97.0 59 22 142/65 (90) 100 59 03/30/20 14:41 97.9 03/30/20 14:11 60 139/70 03/30/20 13:00 63 23 65 03/30/20 12:00 64 03/30/20 12:00 97.9 60 24 139/70 (93) 100 60 03/30/20 12:00 65 03/30/20 12:00 Mechanical Ventilator Intake and Output 03/30/20 03/31/20 19:00 07:00 Intake Total 310 ml 485 ml Balance 310 ml 485 ml Intake Free Water 100 ml 100 ml Tube Feeding 210 ml 385 ml # Voids 1 General Appearance: no acute distress HEENT: atraumatic Respiratory: lungs clear Cardiovascular: normal rate, regular rhythm Extremities: other - edema bilateral Current Medications Medications (Trade) Dose Ordered Sig/Penny Route PRN Reason Start Time Stop Time Status Last Admin Dose Admin Acetaminophen (Tylenol) 650 mg Q6H PRN GT Mild Pain (Pain Scale 1-3) 03/02/20 22:30 04/01/20 22:29 03/29/20 03:43 Acetaminophen (Tylenol) 650 mg Q6H PRN GT Temp >100.5 03/03/20 03:00 04/01/20 22:29 03/23/20 21:49 Aspirin (ASA) 81 mg DAILY GT 03/07/20 09:00 04/21/20 08:59 03/31/20 08:14 Carvedilol (Coreg) 6.25 mg EVERY 8 HOURS GT 03/20/20 22:00 04/13/20 20:59 03/31/20 05:11 Chlorhexidine Gluconate (Ling-Hex 2%) 1 applic DAILY@2000 TOPIC 03/03/20 20:00 06/01/20 19:59 03/30/20 20:11 Dextrose (Dextrose 50%) 25 ml Q30M PRN IV Hypoglycemia 03/15/20 07:30 06/13/20 07:29 Dextrose (Dextrose 50%) 50 ml Q30M PRN IV Hypoglycemia 03/15/20 07:30 06/13/20 07:29 Hydralazine HCl (Apresoline) 25 mg Q6H PRN GT For High Blood Pressure 03/02/20 22:00 05/31/20 21:59 Hydrocortisone (Anusol HC) 25 mg Q12HR RECTAL 03/23/20 21:00 06/21/20 08:59 03/31/20 08:14 Hydromorphone HCl (Dilaudid) 0.5 mg Q4H PRN IVP For Pain 03/26/20 19:30 04/02/20 19:29 03/31/20 08:19 Loperamide HCl (Imodium) 2 mg Q6H PRN GT Diarrhea 03/06/20 12:45 04/05/20 12:44 03/06/20 13:01 Metoclopramide HCl (Reglan) 5 mg Q8HR IVP 03/04/20 11:45 04/03/20 11:44 03/31/20 05:11 Midodrine (Pro-Amatine) 10 mg EVERY 8 HOURS GT 03/17/20 22:00 06/01/20 12:59 03/24/20 13:02 Pantoprazole (Protonix) 40 mg EVERY 12 HOURS IVP 03/04/20 21:00 04/02/20 20:59 03/31/20 08:14 Polyethylene Glycol (Miralax) 17 gm BEDTIME PRN GT Constipation 03/02/20 22:00 04/01/20 21:59 Sodium Hypochlorite (Dakin's Quarter Strength) 1 applic DAILY TOPIC 03/04/20 09:00 04/03/20 08:59 03/31/20 08:14 Sucralfate (Carafate) 1 gm EVERY 6 HOURS GT 03/17/20 18:00 06/09/20 08:59 03/31/20 05:10 Tramadol HCl (Ultram) 50 mg Q6H PRN ORAL Moderate Pain (Pain Scale 4-6) 03/26/20 19:30 04/02/20 19:29 03/30/20 20:47 Zinc Oxide (Zinc Oxide) 1 applic Q8HR TOPIC 03/25/20 22:00 06/22/20 17:59 03/31/20 05:11 Assessment/Plan Assessment/Plan 1. Chronic respiratory failure. - CT chest/abd/pelv: improving pleural effusion 2. Mechanical ventilation. - Now back to 40% FiO2 saturating well - suction secretions as needed 3. Chronic tracheostomy. 4. Chronic G-tube. 5. Anemia. - s/p transfusion - stool OB positive (03/02, 03/03, 03/22) - off anticoags 6. Renal failure. 7. Leukocytosis and sepsis. - WBC now wnl 8. Sepsis UTI 9. Gram positive cocci bacteremia - f/u BCx negative for growth 10. COVID-19 negative 11. Diarrhea - C. diff neg 12. Hypoglycemia - resolved 13. Bradycardia - no urgent indication for pacemaker per cardio 14. Gastric ulcer - on PPI -No active bleeding - GI following 15. Pleural effusion - small; insufficient volume for safe thoracentesis 16. thoracic aortic aneurysm - noted on CT imaging - pt needs emergent transfer out to [facility] for CT surgery evaluation, primary MD aware - Pt might not be a candidate for TAA repair 17. Ascites - s/p paracentesis (2/3), 2.3L out 18. DVT ppx - on SCD -Venous duplex ultrasound of legs negative for DVT (03/25) The care of this patient was discussed with my supervising physician Time spent for this encounter was approximately 31 minutes Cruz Wilson Mar 31, 2020 11:12
[2020-03-31 12:00] VITALS: BP 147/67
--- NOTE | 2020-03-31 12:13 | Nephrology Progress Note ---
Assessment/Plan Problem List: (1) Renal failure (ARF), acute on chronic (2) Anemia (3) Hyponatremia (4) Respiratory failure Assessment (1) JAVIER (acute kidney injury) (2) Renal failure (ARF), acute on chronic (3) Feeding by G-tube (4) Tracheostomy in place (5) Electrolyte imbalance, hyponatremia (6) Anemia, severe (7) Respiratory failure, acute and chronic (8) history of elevated lipase, pancreatitis (9) Elevated troponin I (10) Sepsis Plan March 31: No labs drawn today. Renal parameters stable as of yesterday. Will check lab tomorrow. Dialysis as needed. March 30: Labs reviewed. Low phosphorus addressed. Continue per PMD and consultants. Dialysis as needed. March 29: Dialyzed yesterday. No CHEM panel drawn today. We will continue to monitor renal parameters. Continue per consultants. March 28: Due for dialysis today. Labs reviewed. Stable from renal standpoint of view. March 27: Due for dialysis tomorrow. Labs reviewed. Medication list reviewed. Continue per current management. March 26: Last dialyzed March 24. Labs reviewed. Low phosphorus replaced. Continue to monitor renal parameters. Dialysis as needed. March 25: Dialyzed yesterday. Labs reviewed. Low phosphorus replaced. Continue per current management. Hemoglobin higher. March 24: Labs reviewed. Due for dialysis today. Continue per current management. Hemoglobin lower. Transfusion per wire mesh gate assembler. March 23: Labs reviewed. Dialyzed yesterday. Next dialysis tomorrow. Anemia management per wire mesh gate assembler. March 22: Labs reviewed. Due for dialysis today. Discussed with RN. Agree with discontinuation of the Norman catheter. Hemoglobin lower. Transfusion per wire mesh gate assembler. March 21: Labs reviewed. Will arrange for dialysis tomorrow. Continue per consultants. Will hold phosphorus binders at this time. March 20: Labs reviewed. Patient was dialyzed yesterday. Electrolyte abnormalities corrected. Continue per current management. March 19: Due for dialysis today. Abnormal labs noted. All will be corrected after dialysis. March 18: Labs reviewed. Will dialyze tomorrow. Patient being transfused today. Patient due for abdominal paracentesis. We will keep the Norman in. Continue to monitor renal parameters and dialyze as needed. March 17: No CHEM panel done today. CBC reviewed. Hemoglobin is lowering. Dialyzed yesterday. Will check lab tomorrow. Continue per consultants. March 16: Labs reviewed. Due for dialysis today. Hemoglobin 10.2 today. Continue to monitor renal parameters. March 15: Labs reviewed. Dialyzed March 13. Due for dialysis March 16. Hemoglobin lower. 1 unit of packed RBCs ordered. Per orders. March 14: No labs drawn today. Dialyzed yesterday. Full code. Will check lab tomorrow. Dialysis as needed. March 13: Labs reviewed. Due for dialysis today. Patient remains full code. Continue per current management. March 12: Labs reviewed. Dialyzed yesterday. Due for dialysis tomorrow. Discussed with RN. Patient full code. Continue per current management. March 11: Labs reviewed. Dialyzed this morning. Phosphorus binders dose adjusted. Continue per consultants. Continue to monitor renal parameters. CT: Extensive thoracoabdominal aortic dissection March 10: Labs reviewed. Will order dialysis tomorrow. Phosphorus binders added. Continue per consultants. March 09: No chemistry panel done today. Patient dialyzed yesterday. On dextrose 10% for hypoglycemia. We will check labs tomorrow. Dialysis as needed. March 08: Labs reviewed. Will order dialysis today. Blood sugar low. D10 50 cc an hour started. Continue as is. March 07: Labs reviewed. Dialyzed March 05 and March 06. Continue to monitor renal parameters and hemoglobin. Abnormal electrolytes addressed. IV fluids stopped. Per orders. March 06: Labs reviewed. Dialyzed yesterday. Will reorder dialysis for today. Continue to monitor renal parameters. Hemoglobin 8.4. Patient full code. March 05: Labs reviewed. Patient did not receive dialysis until this morning. Proceed with dialysis. Continue to monitor renal parameters and hemoglobin and hematocrit. March 04: Labs reviewed. Hemoglobin lower. Patient actively bleeding. Was not dialyzed yesterday. Due for GI endoscopy. Continue fluid challenge. Transfusion as needed. Dialysis today. March 03: Labs reviewed. Dialysis ordered. Blood pressure medication all discontinued due to hypotensive state. Albumin bolus given. Continue to monitor renal parameters. Medication list reviewed. Midodrin for low blood pressure ordered Subjective ROS Limited/Unobtainable: Yes Objective Objective Last 24 Hour Vital Signs Date Time Temp Pulse Resp B/P (MAP) Pulse Ox O2 Delivery O2 Flow Rate FiO2 03/31/20 08:24 54 03/31/20 08:00 Mechanical Ventilator 03/31/20 08:00 40 03/31/20 08:00 97.9 59 16 128/61 (83) 100 59 03/31/20 05:11 63 136/58 03/31/20 04:00 64 03/31/20 04:00 40 03/31/20 04:00 97.5 68 16 120/62 (81) 99 68 03/31/20 04:00 Mechanical Ventilator 03/31/20 03:37 60 14 40 03/31/20 00:00 98.4 69 21 148/78 (101) 96 69 03/31/20 00:00 Mechanical Ventilator 03/31/20 00:00 66 03/30/20 23:48 60 14 40 03/30/20 21:49 70 142/78 03/30/20 20:00 40 03/30/20 20:00 Mechanical Ventilator 03/30/20 20:00 97.9 72 22 150/82 (104) 99 72 03/30/20 20:00 72 03/30/20 19:51 68 19 40 03/30/20 18:56 97.0 03/30/20 16:14 40 03/30/20 16:00 40 03/30/20 16:00 57 03/30/20 16:00 Mechanical Ventilator 03/30/20 16:00 97.0 59 22 142/65 (90) 100 59 03/30/20 14:41 97.9 03/30/20 14:11 60 139/70 03/30/20 13:00 63 23 65 Intake and Output 03/30/20 03/31/20 19:00 07:00 Intake Total 310 ml 485 ml Balance 310 ml 485 ml Intake Free Water 100 ml 100 ml Tube Feeding 210 ml 385 ml # Voids 1 Current Medications Medications (Trade) Dose Ordered Sig/Penny Route PRN Reason Start Time Stop Time Status Last Admin Dose Admin Acetaminophen (Tylenol) 650 mg Q6H PRN GT Mild Pain (Pain Scale 1-3) 03/02/20 22:30 04/01/20 22:29 03/29/20 03:43 Acetaminophen (Tylenol) 650 mg Q6H PRN GT Temp >100.5 03/03/20 03:00 04/01/20 22:29 03/23/20 21:49 Aspirin (ASA) 81 mg DAILY GT 03/07/20 09:00 04/21/20 08:59 03/31/20 08:14 Carvedilol (Coreg) 6.25 mg EVERY 8 HOURS GT 03/20/20 22:00 04/13/20 20:59 03/31/20 05:11 Chlorhexidine Gluconate (Ling-Hex 2%) 1 applic DAILY@1999 TOPIC 03/03/20 20:00 06/01/20 19:59 03/30/20 20:11 Dextrose (Dextrose 50%) 25 ml Q30M PRN IV Hypoglycemia 03/15/20 07:30 06/13/20 07:29 Dextrose (Dextrose 50%) 50 ml Q30M PRN IV Hypoglycemia 03/15/20 07:30 06/13/20 07:29 Hydralazine HCl (Apresoline) 25 mg Q6H PRN GT For High Blood Pressure 03/02/20 22:00 05/31/20 21:59 Hydrocortisone (Anusol HC) 25 mg Q12HR RECTAL 03/23/20 21:00 06/21/20 08:59 03/31/20 08:14 Hydromorphone HCl (Dilaudid) 0.5 mg Q4H PRN IVP For Pain 03/26/20 19:30 04/02/20 19:29 03/31/20 08:19 Loperamide HCl (Imodium) 2 mg Q6H PRN GT Diarrhea 03/06/20 12:45 04/05/20 12:44 03/06/20 13:01 Metoclopramide HCl (Reglan) 5 mg Q8HR IVP 03/04/20 11:45 04/03/20 11:44 03/31/20 05:11 Midodrine (Pro-Amatine) 10 mg EVERY 8 HOURS GT 03/17/20 22:00 06/01/20 12:59 03/24/20 13:02 Pantoprazole (Protonix) 40 mg EVERY 12 HOURS IVP 03/04/20 21:00 04/02/20 20:59 03/31/20 08:14 Polyethylene Glycol (Miralax) 17 gm BEDTIME PRN GT Constipation 03/02/20 22:00 04/01/20 21:59 Sodium Hypochlorite (Dakin's Quarter Strength) 1 applic DAILY TOPIC 03/04/20 09:00 04/03/20 08:59 03/31/20 08:14 Sucralfate (Carafate) 1 gm EVERY 6 HOURS GT 03/17/20 18:00 06/09/20 08:59 03/31/20 05:10 Tramadol HCl (Ultram) 50 mg Q6H PRN ORAL Moderate Pain (Pain Scale 4-6) 03/26/20 19:30 04/02/20 19:29 03/30/20 20:47 Zinc Oxide (Zinc Oxide) 1 applic Q8HR TOPIC 03/25/20 22:00 06/22/20 17:59 03/31/20 05:11 Height (Feet): 5 Height (Inches): 3.00 Weight (Pounds): 128 General Appearance: no apparent distress EENT: other - Trach to vent Cardiovascular: normal rate Respiratory/Chest: decreased breath sounds Abdomen: distended Johnny Houston MD Mar 31, 2020 12:13
--- NOTE | 2020-03-31 13:50 | NUR ---
INSURANCE CLINICALS/REVIEW FAXED TO [facility] T: [phone] F: [phone]
[2020-03-31 16:00] VITALS: BP 128/64
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
--- NOTE | 2020-03-31 19:05 | NUR ---
NURSE HAND-OFF REPORT: Important Events on Shift:NA Patient Status: Stable Diet: Gtube Pending Orders: NA Pending Results/Labs:NA Pending notification:NA Latest Vital Signs: Temperature 97.0 , Pulse 64 , B/P 128 /64 , Respiratory Rate 19 , O2 SAT 100 , Mechanical Ventilator, O2 Flow Rate . Vital Sign Comment: Stable EKG Rhythm: Sinus Rhythm Rhythm change?: N Notified?: N -Dr Екатерина HATFIELD Response: No New Orders Received Latest Chav[place]ria Fall Score: 60 Fall Risk: High Risk Safety Measures: Call light Within Reach, Bed Alarm Zone 2, Side Rails Side Rails x3, Bed position Low and Locked. Fall Precautions: Yellow Socks Report given to ERASMO Landry.
[2020-03-31] MEDS ORDERED: Hydromorphone 0.5mg/0.5ml inj IVP SCH (19:15)
--- NOTE | 2020-03-31 19:24 | NUR ---
NURSE NOTES: Report received from ERASMO Wong. Observed pt lying in the bed, awake, trach-vent, able to answer questions by nodding head. SR noted at this time. Trach to vent, Shiley 7, AC14/500/40%/PEEP5, tolerating, saturating at 96%. GT intact, redness around the stoma, running Nepro at 35cc/hr. Sacral s4 noted. R trochanger s2 noted. IV on L H 22, intact. L FA 24G, intact. Bed in the lowest position. Side rails up x3. Will continue to monitor.
--- NOTE | 2020-03-31 19:37 | General Progress Note ---
Subjective Constitutional: Reports: no symptoms HEENT: Reports: no symptoms Cardiovascular: Reports: no symptoms Respiratory: Reports: no symptoms Gastrointestinal/Abdominal: Reports: no symptoms Genitourinary: Reports: no symptoms Neurologic/Psychiatric: Reports: depressed, other - Progressively increases in pain complaints similar to the one that she had more than 6 months ago Dilaudid given Dilaudid in moderate to higher dose Endocrine: Reports: no symptoms Hematologic/Lymphatic: Reports: no symptoms Allergies: Coded Allergies: No Known Allergies (Unverified , 10/10/17) Objective Last 24 Hour Vital Signs Date Time Temp Pulse Resp B/P (MAP) Pulse Ox O2 Delivery O2 Flow Rate FiO2 03/31/20 19:21 64 19 40 03/31/20 16:00 97.0 61 16 128/64 (85) 100 61 03/31/20 13:08 60 147/67 03/31/20 13:05 57 14 40 03/31/20 12:19 60 03/31/20 12:00 40 03/31/20 12:00 97.5 54 16 147/67 (93) 97 54 03/31/20 12:00 Mechanical Ventilator 03/31/20 08:24 54 03/31/20 08:00 Mechanical Ventilator 03/31/20 08:00 40 03/31/20 08:00 97.9 59 16 128/61 (83) 100 59 03/31/20 07:00 53 14 40 03/31/20 05:11 63 136/58 03/31/20 04:00 64 03/31/20 04:00 40 03/31/20 04:00 97.5 68 16 120/62 (81) 99 68 03/31/20 04:00 Mechanical Ventilator 03/31/20 03:37 60 14 40 03/31/20 00:00 98.4 69 21 148/78 (101) 96 69 03/31/20 00:00 Mechanical Ventilator 03/31/20 00:00 66 03/30/20 23:48 60 14 40 03/30/20 21:49 70 142/78 03/30/20 20:00 40 03/30/20 20:00 Mechanical Ventilator 03/30/20 20:00 97.9 72 22 150/82 (104) 99 72 03/30/20 20:00 72 03/30/20 19:51 68 19 40 Intake and Output 03/30/20 03/31/20 19:00 07:00 Intake Total 310 ml 485 ml Balance 310 ml 485 ml Intake Free Water 100 ml 100 ml Tube Feeding 210 ml 385 ml # Voids 1 Height (Feet): 5 Height (Inches): 3.00 Weight (Pounds): 128 General Appearance: WD/WN, alert, mild distress EENT: normal ENT inspection Neck: supple Cardiovascular: normal rate, regular rhythm, no gallop/murmur, no JVD Respiratory/Chest: no respiratory distress, no accessory muscle use, decreased breath sounds Abdomen: normal bowel sounds, non tender, soft, no organomegaly, no mass Extremities: non-tender Neurologic: alert, responsive, depressed affect Assessment/Plan Status Narrative Patient is awake alert febrile but tearful when asked why she is in pain she is noted to yes and ask when she whether she is in mild pain she noted to now when asked when she is in severe pain she nodded yes she denies any other symptom regular shortness of breath she is unable to localize the pain for which she is crying every dissecting aortic aneurysm [place] type B this type of dissecting aneurysm does not require immediate surgery especially in movement below the age of 60 he does not appear to me that the patient will be able to maintain long time without dialysis therefore L and correction with dialysis services should be found rather than higher level of care L that was thought in vein for the last 2 weeks Lucas Dong,Lucas HATFIELD Mar 31, 2020 19:37
[2020-03-31 20:00] VITALS: BP 142/72
[2020-03-31] MEDS: Dyna-Hex 2% Top Sol 2oz TOPIC SCH (20:13)
[2020-03-31] MEDS: traMADol 50mg tab ORAL PRN (21:41)
[2020-03-31] MEDS ORDERED: NS 275ml ONE (21:51)
[2020-03-31] MEDS ORDERED: Tubing IV Secondary IV ONE (21:51)
--- NOTE | 2020-03-31 21:53 | NUR ---
NURSE NOTES: pt c/o pain by moaning and pointing right side, prn med given. Will continue to monitor. VS stable. SR noted. Tolerating current vent setting.
[2020-04-01] VITALS: BP 133/70
--- NOTE | 2020-04-01 00:44 | NUR ---
NURSE NOTES: Pt awake, moaning and crying. Pain meds given. Reposition done. Oral care given. Vital stable. Will continue to monitor.
--- NOTE | 2020-04-01 01:44 | NUR ---
NURSE NOTES: Pt lying in the bed. SB and SR noted. Tolerating current vent setting. Reposition done. Oral care given. Bed bath given. GT site intact, redness around stoma noted. Sacral dressing changed. Will continue to monitor.
--- NOTE | 2020-04-01 02:11 | Cardiology Progress Note ---
Subjective DATE OF SERVICE: Mar 31, 2020 Heart rates remain in stable range; carvedilol therapy tolerated without significant bradycardia, in setting of aortic dissection. BP parameters stable. CT scan revealed extensive thoracoabd aortic dissection- [place] Type B Dialysis per renal Pt is s/p paracentesis (50cc) Objective Last 24 Hour Vital Signs Date Time Temp Pulse Resp B/P (MAP) Pulse Ox O2 Delivery O2 Flow Rate FiO2 04/01/20 00:00 97.9 65 22 133/70 (91) 96 61 04/01/20 00:00 55 04/01/20 00:00 Mechanical Ventilator 04/01/20 00:00 40 03/31/20 23:15 55 14 40 03/31/20 21:41 71 142/72 03/31/20 20:00 59 03/31/20 20:00 Mechanical Ventilator 03/31/20 20:00 97.7 63 17 142/72 (95) 93 61 03/31/20 20:00 40 03/31/20 19:21 64 19 40 03/31/20 16:00 Mechanical Ventilator 03/31/20 16:00 40 03/31/20 16:00 97.0 61 16 128/64 (85) 100 61 03/31/20 16:00 57 03/31/20 13:08 60 147/67 03/31/20 13:05 57 14 40 03/31/20 12:19 60 03/31/20 12:00 40 03/31/20 12:00 97.5 54 16 147/67 (93) 97 54 03/31/20 12:00 Mechanical Ventilator 03/31/20 08:24 54 03/31/20 08:00 Mechanical Ventilator 03/31/20 08:00 40 03/31/20 08:00 97.9 59 16 128/61 (83) 100 59 03/31/20 07:00 53 14 40 03/31/20 05:11 63 136/58 03/31/20 04:00 64 03/31/20 04:00 40 03/31/20 04:00 97.5 68 16 120/62 (81) 99 68 03/31/20 04:00 Mechanical Ventilator 03/31/20 03:37 60 14 40 HEENT: Thin Trach secretions RHYTHM: NSR, SB LUNGS: bilateral rhonchi - few, trach site clean CARDIAC: normal rate, regular rhythm, normal S1 and S2 ABDOMEN: normal bowel sounds, non tender, soft, G-Tube intact EXTREMITIES: normal range of motion, non-tender, normal inspection Assessment/Plan Assessment/Plan Aortic dissection - [place] Type B Sepsis with recovered shock Sinus node disease with bradycardia Hx pacemaker explant Ischemic cardiomyopathy - hx CABG? Paroxysmal Atrial Fib Respiratory failure with trach Hx thoracic aortic aneurysm repair ESRD Anemia HypoPO4 Will maintain current dose of beta flori (with hold parameter). non destructive tester Vent support Antimicrobials DVT prophyl No indication for pacemaker at present. HD/UF per renal Not a candidate for cardiothoracic surgery in this setting. Deni Willams MD Apr 01, 2020 02:11
[2020-04-01 04:00] VITALS: BP 158/75
[2020-04-01] MEDS: Midodrine 10mg tab GT SCH ×3 (05:02→21:59)
[2020-04-01] MEDS: Metoclopramide 10mg/2ml Inj IVP SCH ×3 (05:02→22:04)
[2020-04-01] MEDS: Carvedilol 6.25mg Tab GT SCH ×3 (05:03→22:00)
[2020-04-01] MEDS: Hydromorphone 0.5mg/0.5ml inj IVP PRN (05:03)
[2020-04-01] MEDS: Sucralfate 1gm tab GT SCH ×4 (05:05→23:28)
[2020-04-01] MEDS: Zinc Oxide Oint 2oz TOPIC SCH ×3 (05:25→22:04)
[2020-04-01 05:32] LABS: HEMATOCRIT 22.6 % (37.0-47.0); HEMOGLOBIN 7.4 G/DL (12.0-16.0); MEAN CORPUSCULAR VOLUME 91 FL (80-99); PLATELET COUNT 180 K/UL (150-450); RED BLOOD COUNT 2.48 M/UL (4.20-5.40); WHITE BLOOD COUNT 6.6 K/UL (4.8-10.8)
[2020-04-01 06:03] LABS: ALANINE AMINOTRANSFERASE 11 U/L (12-78); ALBUMIN 1.1 G/DL (3.4-5.0); ALBUMIN/GLOBULIN RATIO 0.3 (1.0-2.7); ALKALINE PHOSPHATASE 127 U/L (46-116); ANION GAP 7 mmol/L (5-15); ASPARTATE AMINO TRANSFERASE 29 U/L (15-37); BILIRUBIN,TOTAL 0.6 MG/DL (0.2-1.0); BLOOD UREA NITROGEN 96 mg/dL (7-18); CALCIUM 7.8 MG/DL (8.5-10.1); CARBON DIOXIDE 29 MMOL/L (21-32); CHLORIDE 102 MMOL/L (98-107); CREATININE 2.7 MG/DL (0.55-1.30); PHOSPHORUS 2.8 MG/DL (2.5-4.9); POTASSIUM 3.7 MMOL/L (3.5-5.1); SODIUM 138 MMOL/L (136-145)
--- NOTE | 2020-04-01 06:49 | Hematology/Onc Progress Note ---
Assessment/Plan Assessment/Plan # Leukocytosis, now with likely bacteremia, as per ID care --> Cxr: : Large left abiola consolidation/effusion --> wbc 30-->40-->27->30->29-->35->32-->28-->21->10.2-->6.6 --> ABX angelo/vanc-->tobra/edson/vanc-->dapto/ceftazadine->off abx --> smear reviewed --> ID recs are noted # Anemia of chronic disease due to underlying chronic medical issues, multifactorial --> Anemia workup has been reviewed, cw acd --> No evidence of hemolysis is noted, peripheral smear has been reviewed. --> Hgb goal >7. Transfuse prn. --> Epogen required in prior --> Medications have been reviewed --> low threshold for gi evaluation in case has occult + --> hgb 1.9-->5-->7.1-->8.8-->8.1->7.5-> 8.2-->6. 8-->9.2-->8.4->7.7-->7.1-->8.8->8.7 --> 1 unit prbc1/, 2 units 01/15, 03/02, 03/18, 03/24 --> gi eval as needed # Elevated tumor markers, cea and ca 19.9 --> reviewed prior 01/27/20 cat scan a/p --> no masses noted, hold off further extensive w/u # Thrombocytopenia likely reactive v medication induced --> plt 200-->129->91-->86->100->78-->86-->87-->125->135 --> transfuse as needed --> r/o dic, has been ruled out --> anticoag as needed # Coagulopathy with inr 1.5 --> consider vit k/ffp as needed preprocedure --> labs noted # Aortic dissection as seen on Ct ==> when stable, consider transfer hloc # JAVIER initially >2 --> on ivfs --> per renal # Elevated d-dimer, likely infection related --> venous duplex prior neg --> in prior neg # Dysphagia s/p peg --> as per gi # Thoracic aortic dissection --> s/p repair early 2017 # Chronic Resp failure -> s/p trach/vent # Psychiatric history on ativan/haldol # [place] resident # Dvt ppx --> scds The timing of this note does not necessarily reflect the time of the patient was seen. Greatly appreciate consultation. Subjective Constitutional: Denies: no symptoms, chills, fever, malaise, weakness, other HEENT: Denies: no symptoms, eye pain, blurred vision, tearing, double vision, ear pain, ear discharge, nose pain, nose congestion, throat pain, throat swelling, mouth pain, mouth swelling, other Cardiovascular: Denies: no symptoms, chest pain, edema, irregular heart rate, lightheadedness, palpitations, syncope, other Respiratory: Denies: no symptoms, cough, shortness of breath, SOB with excertion, SOB at rest, sputum, wheezing, other Gastrointestinal/Abdominal: Denies: no symptoms, abdomen distended, abdominal pain, black stools, tarry stools, blood in stool, constipated, diarrhea, difficulty swallowing, nausea, poor appetite, poor fluid intake, rectal bleeding, vomiting, other Genitourinary: Denies: no symptoms, burning, discharge, frequency, flank pain, hematuria, incontinence, pain, urgency, other Neurologic/Psychiatric: Denies: no symptoms, anxiety, depressed, emotional problems, headache, numbness, paresthesia, pre-existing deficit, seizure, tingling, tremors, weakness, other Endocrine: Denies: no symptoms, excessive sweating, flushing, intolerance to cold, intolerance to heat, increased hunger, increased thirst, increased urine, unexplained weight gain, unexplained weight loss, other Allergies: Coded Allergies: No Known Allergies (Unverified , 10/10/17) Subjective 03/04 for 1 unit transfusion this am as hgb remains low, wbc better 03/05 egd was done did show large nonbleeding gastric ulcer, high tumor markers 03/06 nv, with davis overnight, bp remains stable, with occult + stool, dw Rn 03/09 nv, remains stable, on vanc/tobra/edson, meds reviewed, no bleeding 03/10 nv, on vent, no bleeding, receiving abx, no night sweats 03/11 nv, dw surgeon and pcp, with aortic dissection to transfer [facility] when stable 03/12 nv, labs reviewed, wbc 21, hgb 7.5, otherwise is comfortable 03/13 nv, labs noted, no bleeding, wbc 13, hgb improved, meds reviewed 03/15 nv, meds reviewed, labs noted, no bleeding, on vent 03/16 nv/tv, peg, meds noted, hgb remains stable, improved to 10 2/ s/p egd, with gastric ulceration noted, hgb stable 03/18 labs noted, hgb 6.8, to get 1 unit prbc, meds reviewed 03/19 hgb 9.2, plt 78, no hemoptysis, is comfortable 03/20 labs reviewed, meds noted, no bleeding, dw rn 03/22 wound treatment, vent, with gtube, labs reviewed, dw rn 03/23 labs reviewed, meds noted, no bleeding, with gt 03/24 large bm overnight that was bloody, hgb 7.1, dw rn 03/25 labs pending this am, comfortable, nsr, meds noted 03/26 nv, vent, with gt, labs reviewed, hgb 8.8 03/27 nv, vent, labs reviewed, with gt, hgb stable 03/29 nv, vent, labs pending, meds reviewed, no bleeding 03/30 nv, t/v, with gt feeds, labs reviewed, meds noted 03/31 nv, t/v, oral secretions were suctioned, meds reviewed 04/01 nv, t/v, labs are reviewed, meds noted, hgb 7.4 Objective Objective Current Medications Medications (Trade) Dose Ordered Sig/Penny Route PRN Reason Start Time Stop Time Status Last Admin Dose Admin Acetaminophen (Tylenol) 650 mg Q6H PRN GT Mild Pain (Pain Scale 1-3) 03/02/20 22:30 04/01/20 22:29 03/29/20 03:43 Acetaminophen (Tylenol) 650 mg Q6H PRN GT Temp >100.5 03/03/20 03:00 04/01/20 22:29 03/23/20 21:49 Aspirin (ASA) 81 mg DAILY GT 03/07/20 09:00 04/21/20 08:59 03/31/20 08:14 Carvedilol (Coreg) 6.25 mg EVERY 8 HOURS GT 03/20/20 22:00 04/13/20 20:59 04/01/20 05:03 Chlorhexidine Gluconate (Ling-Hex 2%) 1 applic DAILY@1999 TOPIC 03/03/20 20:00 06/01/20 19:59 03/31/20 20:13 Dextrose (Dextrose 50%) 25 ml Q30M PRN IV Hypoglycemia 03/15/20 07:30 06/13/20 07:29 Dextrose (Dextrose 50%) 50 ml Q30M PRN IV Hypoglycemia 03/15/20 07:30 06/13/20 07:29 Famotidine (Pepcid I.v.) 20 mg Q12HR IVP 03/31/20 21:00 04/30/20 20:59 03/31/20 20:13 Hydralazine HCl (Apresoline) 25 mg Q6H PRN GT For High Blood Pressure 03/02/20 22:00 05/31/20 21:59 Hydrocortisone (Anusol HC) 25 mg Q12HR RECTAL 03/23/20 21:00 06/21/20 08:59 03/31/20 20:13 Hydromorphone HCl (Dilaudid) 0.5 mg Q4H PRN IVP For Pain 03/26/20 19:30 04/02/20 19:29 04/01/20 05:03 Loperamide HCl (Imodium) 2 mg Q6H PRN GT Diarrhea 03/06/20 12:45 04/05/20 12:44 03/06/20 13:01 Metoclopramide HCl (Reglan) 5 mg Q8HR IVP 03/04/20 11:45 04/03/20 11:44 04/01/20 05:02 Midodrine (Pro-Amatine) 10 mg EVERY 8 HOURS GT 03/17/20 22:00 06/01/20 12:59 03/31/20 13:08 Polyethylene Glycol (Miralax) 17 gm BEDTIME PRN GT Constipation 03/02/20 22:00 04/01/20 21:59 Sodium Hypochlorite (Dakin's Quarter Strength) 1 applic DAILY TOPIC 03/04/20 09:00 04/03/20 08:59 03/31/20 08:14 Sucralfate (Carafate) 1 gm EVERY 6 HOURS GT 03/17/20 18:00 06/09/20 08:59 04/01/20 05:05 Tramadol HCl (Ultram) 50 mg Q6H PRN ORAL Moderate Pain (Pain Scale 4-6) 03/26/20 19:30 04/02/20 19:29 03/31/20 21:41 Zinc Oxide (Zinc Oxide) 1 applic Q8HR TOPIC 03/25/20 22:00 06/22/20 17:59 04/01/20 05:25 Last 24 Hour Vital Signs Date Time Temp Pulse Resp B/P (MAP) Pulse Ox O2 Delivery O2 Flow Rate FiO2 04/01/20 05:03 63 158/75 04/01/20 04:00 63 04/01/20 04:00 98.3 63 18 158/75 (102) 98 61 04/01/20 04:00 40 04/01/20 04:00 Mechanical Ventilator 04/01/20 02:19 66 20 40 04/01/20 00:00 97.9 65 22 133/70 (91) 96 61 04/01/20 00:00 55 04/01/20 00:00 Mechanical Ventilator 04/01/20 00:00 40 03/31/20 23:15 55 14 40 03/31/20 21:41 71 142/72 03/31/20 20:00 59 03/31/20 20:00 Mechanical Ventilator 03/31/20 20:00 97.7 63 17 142/72 (95) 93 61 03/31/20 20:00 40 03/31/20 19:21 64 19 40 03/31/20 16:00 Mechanical Ventilator 03/31/20 16:00 40 03/31/20 16:00 97.0 61 16 128/64 (85) 100 61 03/31/20 16:00 57 03/31/20 13:08 60 147/67 03/31/20 13:05 57 14 40 03/31/20 12:19 60 03/31/20 12:00 40 03/31/20 12:00 97.5 54 16 147/67 (93) 97 54 03/31/20 12:00 Mechanical Ventilator 03/31/20 08:24 54 03/31/20 08:00 Mechanical Ventilator 03/31/20 08:00 40 03/31/20 08:00 97.9 59 16 128/61 (83) 100 59 03/31/20 07:00 53 14 40 03/31/20 05:11 63 136/58 03/31/20 04:00 64 03/31/20 04:00 40 03/31/20 04:00 97.5 68 16 120/62 (81) 99 68 03/31/20 04:00 Mechanical Ventilator 03/31/20 03:37 60 14 40 03/31/20 00:00 98.4 69 21 148/78 (101) 96 69 03/31/20 00:00 Mechanical Ventilator 03/31/20 00:00 66 03/30/20 23:48 60 14 40 03/30/20 21:49 70 142/78 03/30/20 20:00 40 03/30/20 20:00 Mechanical Ventilator 03/30/20 20:00 97.9 72 22 150/82 (104) 99 72 03/30/20 20:00 72 03/30/20 19:51 68 19 40 03/30/20 18:56 97.0 03/30/20 16:14 40 03/30/20 16:00 40 03/30/20 16:00 57 03/30/20 16:00 Mechanical Ventilator 03/30/20 16:00 97.0 59 22 142/65 (90) 100 59 03/30/20 14:41 97.9 03/30/20 14:11 60 139/70 03/30/20 13:00 63 23 65 03/30/20 12:00 64 03/30/20 12:00 97.9 60 24 139/70 (93) 100 60 03/30/20 12:00 65 03/30/20 12:00 Mechanical Ventilator 03/30/20 08:00 97.2 55 14 128/65 (86) 100 55 03/30/20 08:00 60 03/30/20 08:00 Mechanical Ventilator 03/30/20 08:00 65 03/30/20 07:16 56 14 100 Intake and Output 03/31/20 04/01/20 19:00 07:00 Intake Total 455 ml 415 ml Balance 455 ml 415 ml Intake Free Water 100 ml Tube Feeding 455 ml 315 ml # Bowel Movements 1 Labs Test 03/30/20 03:50 03/30/20 07:48 04/01/20 04:50 White Blood Count 7.1 K/UL (4.8-10.8) 6.6 K/UL (4.8-10.8) Red Blood Count 2.66 M/UL (4.20-5.40) 2.48 M/UL (4.20-5.40) Hemoglobin 8.0 G/DL (12.0-16.0) 7.4 G/DL (12.0-16.0) Hematocrit 23.9 % (37.0-47.0) 22.6 % (37.0-47.0) Mean Corpuscular Volume 90 FL (80-99) 91 FL (80-99) Mean Corpuscular Hemoglobin 30.2 PG (27.0-31.0) 30.0 PG (27.0-31.0) Mean Corpuscular Hemoglobin Concent 33.6 G/DL (32.0-36.0) 33.0 G/DL (32.0-36.0) Red Cell Distribution Width 14.0 % (11.6-14.8) 14.0 % (11.6-14.8) Platelet Count 172 K/UL (150-450) 180 K/UL (150-450) Mean Platelet Volume 7.3 FL (6.5-10.1) 6.3 FL (6.5-10.1) Neutrophils (%) (Auto) 79.8 % (45.0-75.0) % (45.0-75.0) Lymphocytes (%) (Auto) 15.3 % (20.0-45.0) % (20.0-45.0) Monocytes (%) (Auto) 4.4 % (1.0-10.0) % (1.0-10.0) Eosinophils (%) (Auto) 0.1 % (0.0-3.0) % (0.0-3.0) Basophils (%) (Auto) 0.4 % (0.0-2.0) % (0.0-2.0) Sodium Level 140 MMOL/L (136-145) 138 MMOL/L (136-145) Potassium Level 3.7 MMOL/L (3.5-5.1) 3.7 MMOL/L (3.5-5.1) Chloride Level 102 MMOL/L (98-107) 102 MMOL/L (98-107) Carbon Dioxide Level 31 MMOL/L (21-32) 29 MMOL/L (21-32) Anion Gap 7 mmol/L (5-15) 7 mmol/L (5-15) Blood Urea Nitrogen 78 mg/dL (7-18) 96 mg/dL (7-18) Creatinine 2.4 MG/DL (0.55-1.30) 2.7 MG/DL (0.55-1.30) Estimat Glomerular Filtration Rate 21.7 mL/min (>60) 18.9 mL/min (>60) Glucose Level 89 MG/DL (74-106) 105 MG/DL (74-106) Calcium Level 7.7 MG/DL (8.5-10.1) 7.8 MG/DL (8.5-10.1) Phosphorus Level 2.1 MG/DL (2.5-4.9) 2.8 MG/DL (2.5-4.9) Magnesium Level 2.1 MG/DL (1.8-2.4) 2.3 MG/DL (1.8-2.4) Total Bilirubin 0.6 MG/DL (0.2-1.0) 0.6 MG/DL (0.2-1.0) Aspartate Amino Transf (AST/SGOT) 31 U/L (15-37) 29 U/L (15-37) Alanine Aminotransferase (ALT/SGPT) 14 U/L (12-78) 11 U/L (12-78) Alkaline Phosphatase 135 U/L (46-116) 127 U/L (46-116) C-Reactive Protein, Quantitative 19.8 mg/dL (0.00-0.90) 12.6 mg/dL (0.00-0.90) Pro-B-Type Natriuretic Peptide > 20701 pg/mL (0-125) > 96986 pg/mL (0-125) Total Protein 5.2 G/DL (6.4-8.2) 5.2 G/DL (6.4-8.2) Albumin 1.1 G/DL (3.4-5.0) 1.1 G/DL (3.4-5.0) Globulin 4.1 g/dL 4.1 g/dL Albumin/Globulin Ratio 0.3 (1.0-2.7) 0.3 (1.0-2.7) HIV (1&2) Antibody Rapid Negative (NEGATIVE) Height (Feet): 5 Height (Inches): 3.00 Weight (Pounds): 128 Objective Physical Exam: Vitals: reviewed General: NAD HEENT: nc, at Neck: supple ++trach/vent Chest: clear breath sounds bilaterally Cardiovascular: RRR, no s3, s4 Abdomen: soft, nontender, nd +gtube Extremities: no cce, normal range of motion Neuro: alert Evan Muhammad MD Apr 01, 2020 06:49
--- NOTE | 2020-04-01 06:57 | NUR ---
NURSE NOTES: Notified regarding hgb 7.4 and 1 prbc received, will be carried out.
--- NOTE | 2020-04-01 07:28 | NUR ---
NURSE HAND-OFF REPORT: Important Events on Shift: c/o pain on sacral. hgb 7.4, blood transfusion prbc will be given. Patient Status: vs stable. Diet: Nepro 35cc Pending Orders: prbc Pending Results/Labs:[] Pending MD notification:[] Latest Vital Signs: Temperature 98.3 , Pulse 63 , B/P 158 /75 , Respiratory Rate 18 , O2 SAT 98 , Mechanical Ventilator, O2 Flow Rate . Vital Sign Comment: [] EKG Rhythm: Sinus Rhythm Rhythm change?: N Notified?: N -Dr Екатерина HATFIELD Response: No New Orders Received Latest [place] Fall Score: 60 Fall Risk: High Risk Safety Measures: Call light Within Reach, Bed Alarm Zone 2, Side Rails Side Rails x3, Bed position Low and Locked. Fall Precautions: Yellow Socks Report given to ERASMO Nix.
--- NOTE | 2020-04-01 07:49 | General Progress Note ---
Subjective ROS Limited/Unobtainable: No Allergies: Coded Allergies: No Known Allergies (Unverified , 10/10/17) Objective Last 24 Hour Vital Signs Date Time Temp Pulse Resp B/P (MAP) Pulse Ox O2 Delivery O2 Flow Rate FiO2 04/01/20 05:03 63 158/75 04/01/20 04:00 63 04/01/20 04:00 98.3 63 18 158/75 (102) 98 61 04/01/20 04:00 40 04/01/20 04:00 Mechanical Ventilator 04/01/20 02:19 66 20 40 04/01/20 00:00 97.9 65 22 133/70 (91) 96 61 04/01/20 00:00 55 04/01/20 00:00 Mechanical Ventilator 04/01/20 00:00 40 03/31/20 23:15 55 14 40 03/31/20 21:41 71 142/72 03/31/20 20:00 59 03/31/20 20:00 Mechanical Ventilator 03/31/20 20:00 97.7 63 17 142/72 (95) 93 61 03/31/20 20:00 40 03/31/20 19:21 64 19 40 03/31/20 16:00 Mechanical Ventilator 03/31/20 16:00 40 03/31/20 16:00 97.0 61 16 128/64 (85) 100 61 03/31/20 16:00 57 03/31/20 13:08 60 147/67 03/31/20 13:05 57 14 40 03/31/20 12:19 60 03/31/20 12:00 40 03/31/20 12:00 97.5 54 16 147/67 (93) 97 54 03/31/20 12:00 Mechanical Ventilator 03/31/20 08:24 54 03/31/20 08:00 Mechanical Ventilator 03/31/20 08:00 40 03/31/20 08:00 97.9 59 16 128/61 (83) 100 59 Intake and Output 03/31/20 04/01/20 19:00 07:00 Intake Total 455 ml 415 ml Balance 455 ml 415 ml Intake Free Water 100 ml Tube Feeding 455 ml 315 ml # Bowel Movements 1 Laboratory Tests 04/01/20 04:50: White Blood Count 6.6, Red Blood Count 2.48L, Hemoglobin 7.4L, Hematocrit 22.6L, Mean Corpuscular Volume 91, Mean Corpuscular Hemoglobin 30.0, Mean Corpuscular Hemoglobin Concent 33.0, Red Cell Distribution Width 14.0, Platelet Count 180, Mean Platelet Volume 6.3L, Neutrophils (%) (Auto) , Lymphocytes (%) (Auto) , Monocytes (%) (Auto) , Eosinophils (%) (Auto) , Basophils (%) (Auto) , Neutrophils % (Manual) [Pending], Lymphocytes % (Manual) [Pending], Platelet Estimate [Pending], Platelet Morphology [Pending], Sodium Level 138, Potassium Level 3.7, Chloride Level 102, Carbon Dioxide Level 29, Anion Gap 7, Blood Urea Nitrogen 96H, Creatinine 2.7H, Estimat Glomerular Filtration Rate 18.9, Glucose Level 105, Calcium Level 7.8L, Phosphorus Level 2.8, Magnesium Level 2.3, Total Bilirubin 0.6, Aspartate Amino Transf (AST/SGOT) 29, Alanine Aminotransferase (ALT/SGPT) 11L, Alkaline Phosphatase 127H, C-Reactive Protein, Quantitative 12.6H, Pro-B-Type Natriuretic Peptide > 84049C, Total Protein 5.2L, Albumin 1.1L , Globulin 4.1, Albumin/Globulin Ratio 0.3L Height (Feet): 5 Height (Inches): 3.00 Weight (Pounds): 128 General Appearance: no apparent distress EENT: normal ENT inspection Neck: supple Cardiovascular: normal rate Respiratory/Chest: decreased breath sounds Extremities: non-tender Assessment/Plan Problem List: (1) Hx of CABG ICD Codes: Z95.1 - Presence of aortocoronary bypass graft SNOMED: 984480432, 293890351 (2) History of tracheostomy ICD Codes: Z98.890 - Other specified postprocedural states SNOMED: 816966582, 681137167 (3) PEG (percutaneous endoscopic gastrostomy) status ICD Codes: Z93.1 - Gastrostomy status SNOMED: 930912584, 932387742 (4) Renal failure ICD Codes: N19 - Unspecified kidney failure SNOMED: 19784746, 981531430 (5) Severe anemia ICD Codes: D64.9 - Anemia, unspecified SNOMED: 502722085 Assessment/Plan: s/p EGD gastric ulcer on ppi and carafate fu H&H GTF s/p EGD GT tightened at the bedside repeat labs will fu Inder Mccauley MD Apr 01, 2020 07:49
[2020-04-01 08:00] VITALS: BP 114/58
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
[2020-04-01] MEDS: Hydrocortisone 25mg supp RECTAL SCH ×2 (09:00→20:08)
[2020-04-01] MEDS: Dakin's 0.125% Soln (Quarter Strength) 16oz TOPIC SCH (09:00)
[2020-04-01] MEDS: Aspirin Baby 81mg GT SCH (09:00)
--- NOTE | 2020-04-01 11:48 | NUR ---
CASE MANAGEMENT:REVIEW 04/01/20 SI: SEPSIS. BACTEREMIA. AORTIC DISSECTION ANEMIA...S/P 14 UNITS PRBC'S. TRACH/VENT/GTUBE. ESRD/HD 98.4 59 29 114/58 99% ON VENT SUPPORT W/40% FIO2 H/H-7.4/22.6 BUN+96 CR+2.7 IS: COREG GT Q8HRS ULTRAM GT Q6HRS PRN MIDODRINE GT Q8HRS CARAFATE GT Q6HRS ASA GT QD IV PROTONIX Q12 IV REGLAN Q8HRS ANUSOL NV Q12 : STEP DOWN UNIT DCP: FROM [facility] PLAN: CARAFATE FOR GASTRIC ULCER MONITOR H/H
[2020-04-01 12:00] VITALS: BP 143/63
--- NOTE | 2020-04-01 12:24 | NUR ---
NURSE NOTES: Received patient in bed awake. Trache intact connected to vent. IV lines intact and patent. Gtube intact, feeding off, no residual. Gtube feeding turned on. FC intact. For transfusion 1 unit PRBC. HOB elevated. Bed locked in low position. Call light within reach. Will continue plan of care.
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
--- NOTE | 2020-04-01 12:49 | NUR ---
INSURANCE CLINICALS/REVIEW FAXED TO [facility] T: [phone] F: [phone]
--- NOTE | 2020-04-01 14:28 | Nephrology Progress Note ---
Assessment/Plan Problem List: (1) Renal failure (ARF), acute on chronic (2) Anemia (3) Hyponatremia (4) Respiratory failure Assessment (1) JAVIER (acute kidney injury) (2) Renal failure (ARF), acute on chronic (3) Feeding by G-tube (4) Tracheostomy in place (5) Electrolyte imbalance, hyponatremia (6) Anemia, severe (7) Respiratory failure, acute and chronic (8) history of elevated lipase, pancreatitis (9) Elevated troponin I (10) Sepsis Plan April 01: Labs reviewed. Renal parameters stable. No dialysis today. Continue per consultants. March 31: No labs drawn today. Renal parameters stable as of yesterday. Will check lab tomorrow. Dialysis as needed. March 30: Labs reviewed. Low phosphorus addressed. Continue per PMD and consultants. Dialysis as needed. March 29: Dialyzed yesterday. No CHEM panel drawn today. We will continue to monitor renal parameters. Continue per consultants. March 28: Due for dialysis today. Labs reviewed. Stable from renal standpoint of view. March 27: Due for dialysis tomorrow. Labs reviewed. Medication list reviewed. Continue per current management. March 26: Last dialyzed March 24. Labs reviewed. Low phosphorus replaced. Continue to monitor renal parameters. Dialysis as needed. March 25: Dialyzed yesterday. Labs reviewed. Low phosphorus replaced. Continue per current management. Hemoglobin higher. March 24: Labs reviewed. Due for dialysis today. Continue per current management. Hemoglobin lower. Transfusion per product applications engineer. March 23: Labs reviewed. Dialyzed yesterday. Next dialysis tomorrow. Anemia management per product applications engineer. March 22: Labs reviewed. Due for dialysis today. Discussed with RN. Agree with discontinuation of the Norman catheter. Hemoglobin lower. Transfusion per product applications engineer. March 21: Labs reviewed. Will arrange for dialysis tomorrow. Continue per consultants. Will hold phosphorus binders at this time. March 20: Labs reviewed. Patient was dialyzed yesterday. Electrolyte abnormalities corrected. Continue per current management. March 19: Due for dialysis today. Abnormal labs noted. All will be corrected after dialysis. March 18: Labs reviewed. Will dialyze tomorrow. Patient being transfused today. Patient due for abdominal paracentesis. We will keep the Norman in. Continue to monitor renal parameters and dialyze as needed. March 17: No CHEM panel done today. CBC reviewed. Hemoglobin is lowering. Dialyzed yesterday. Will check lab tomorrow. Continue per consultants. March 16: Labs reviewed. Due for dialysis today. Hemoglobin 10.2 today. Continue to monitor renal parameters. March 15: Labs reviewed. Dialyzed March 13. Due for dialysis March 16. Hemoglobin lower. 1 unit of packed RBCs ordered. Per orders. March 14: No labs drawn today. Dialyzed yesterday. Full code. Will check lab tomorrow. Dialysis as needed. March 13: Labs reviewed. Due for dialysis today. Patient remains full code. Continue per current management. March 12: Labs reviewed. Dialyzed yesterday. Due for dialysis tomorrow. Discussed with RN. Patient full code. Continue per current management. March 11: Labs reviewed. Dialyzed this morning. Phosphorus binders dose adjusted. Continue per consultants. Continue to monitor renal parameters. CT: Extensive thoracoabdominal aortic dissection March 10: Labs reviewed. Will order dialysis tomorrow. Phosphorus binders added. Continue per consultants. March 09: No chemistry panel done today. Patient dialyzed yesterday. On dextrose 10% for hypoglycemia. We will check labs tomorrow. Dialysis as needed. March 08: Labs reviewed. Will order dialysis today. Blood sugar low. D10 50 cc an hour started. Continue as is. March 07: Labs reviewed. Dialyzed March 05 and March 06. Continue to mo nitor renal parameters and hemoglobin. Abnormal electrolytes addressed. IV fluids stopped. Per orders. March 06: Labs reviewed. Dialyzed yesterday. Will reorder dialysis for today. Continue to monitor renal parameters. Hemoglobin 8.4. Patient full code. March 05: Labs reviewed. Patient did not receive dialysis until this morning. Proceed with dialysis. Continue to monitor renal parameters and hemoglobin and hematocrit. March 04: Labs reviewed. Hemoglobin lower. Patient actively bleeding. Was not dialyzed yesterday. Due for GI endoscopy. Continue fluid challenge. Transfusion as needed. Dialysis today. March 03: Labs reviewed. Dialysis ordered. Blood pressure medication all discontinued due to hypotensive state. Albumin bolus given. Continue to monitor renal parameters. Medication list reviewed. Midodrin for low blood pressure ordered Subjective ROS Limited/Unobtainable: Yes Objective Objective Last 24 Hour Vital Signs Date Time Temp Pulse Resp B/P (MAP) Pulse Ox O2 Delivery O2 Flow Rate FiO2 04/01/20 12:00 97.9 64 14 143/63 (89) 100 64 04/01/20 11:52 64 04/01/20 10:45 63 22 40 04/01/20 08:00 59 04/01/20 08:00 98.4 88 29 114/58 (76) 99 84 04/01/20 08:00 40 04/01/20 08:00 Mechanical Ventilator 04/01/20 07:05 63 22 40 04/01/20 05:03 63 158/75 04/01/20 04:00 63 04/01/20 04:00 98.3 63 18 158/75 (102) 98 61 04/01/20 04:00 40 04/01/20 04:00 Mechanical Ventilator 04/01/20 02:19 66 20 40 04/01/20 00:00 97.9 65 22 133/70 (91) 96 61 04/01/20 00:00 55 04/01/20 00:00 Mechanical Ventilator 04/01/20 00:00 40 03/31/20 23:15 55 14 40 03/31/20 21:41 71 142/72 03/31/20 20:00 59 03/31/20 20:00 Mechanical Ventilator 03/31/20 20:00 97.7 63 17 142/72 (95) 93 61 03/31/20 20:00 40 03/31/20 19:21 64 19 40 03/31/20 16:00 Mechanical Ventilator 03/31/20 16:00 40 03/31/20 16:00 97.0 61 16 128/64 (85) 100 61 03/31/20 16:00 57 Intake and Output 03/31/20 04/01/20 19:00 07:00 Intake Total 455 ml 415 ml Balance 455 ml 415 ml Intake Free Water 100 ml Tube Feeding 455 ml 315 ml # Bowel Movements 1 Current Medications Medications (Trade) Dose Ordered Sig/Penny Route PRN Reason Start Time Stop Time Status Last Admin Dose Admin Acetaminophen (Tylenol) 650 mg Q6H PRN GT Mild Pain (Pain Scale 1-3) 03/02/20 22:30 04/01/20 22:29 03/29/20 03:43 Acetaminophen (Tylenol) 650 mg Q6H PRN GT Temp >100.5 03/03/20 03:00 04/01/20 22:29 03/23/20 21:49 Aspirin (ASA) 81 mg DAILY GT 03/07/20 09:00 04/21/20 08:59 04/01/20 09:00 Carvedilol (Coreg) 6.25 mg EVERY 8 HOURS GT 03/20/20 22:00 04/13/20 20:59 04/01/20 05:03 Chlorhexidine Gluconate (Ling-Hex 2%) 1 applic DAILY@1999 TOPIC 03/03/20 20:00 06/01/20 19:59 03/31/20 20:13 Dextrose (Dextrose 50%) 25 ml Q30M PRN IV Hypoglycemia 03/15/20 07:30 06/13/20 07:29 Dextrose (Dextrose 50%) 50 ml Q30M PRN IV Hypoglycemia 03/15/20 07:30 06/13/20 07:29 Famotidine (Pepcid I.v.) 20 mg Q12HR IVP 03/31/20 21:00 04/30/20 20:59 04/01/20 09:00 Hydralazine HCl (Apresoline) 25 mg Q6H PRN GT For High Blood Pressure 03/02/20 22:00 05/31/20 21:59 Hydrocortisone (Anusol HC) 25 mg Q12HR RECTAL 03/23/20 21:00 06/21/20 08:59 04/01/20 09:00 Hydromorphone HCl (Dilaudid) 0.5 mg Q4H PRN IVP For Pain 04/01/20 11:30 04/02/20 19:29 Loperamide HCl (Imodium) 2 mg Q6H PRN GT Diarrhea 03/06/20 12:45 04/05/20 12:44 03/06/20 13:01 Metoclopramide HCl (Reglan) 5 mg Q8HR IVP 03/04/20 11:45 04/03/20 11:44 04/01/20 05:02 Midodrine (Pro-Amatine) 10 mg EVERY 8 HOURS GT 03/17/20 22:00 06/01/20 12:59 03/31/20 13:08 Polyethylene Glycol (Miralax) 17 gm BEDTIME PRN GT Constipation 03/02/20 22:00 04/01/20 21:59 Sodium Hypochlorite (Dakin's Quarter Strength) 1 applic DAILY TOPIC 03/04/20 09:00 04/03/20 08:59 04/01/20 09:00 Sucralfate (Carafate) 1 gm EVERY 6 HOURS GT 03/17/20 18:00 06/09/20 08:59 04/01/20 11:52 Tramadol HCl (Ultram) 50 mg Q6H PRN ORAL Moderate Pain (Pain Scale 4-6) 03/26/20 19:30 04/02/20 19:29 03/31/20 21:41 Zinc Oxide (Zinc Oxide) 1 applic Q8HR TOPIC 03/25/20 22:00 06/22/20 17:59 04/01/20 05:25 Laboratory Tests 04/01/20 04:50: White Blood Count 6.6, Red Blood Count 2.48L, Hemoglobin 7.4L, Hematocrit 22.6L, Mean Corpuscular Volume 91, Mean Corpuscular Hemoglobin 30.0, Mean Corpuscular Hemoglobin Concent 33.0, Red Cell Distribution Width 14.0, Platelet Count 180, Mean Platelet Volume 6.3L, Neutrophils (%) (Auto) , Lymphocytes (%) (Auto) , Monocytes (%) (Auto) , Eosinophils (%) (Auto) , Basophils (%) (Auto) , Differential Total Cells Counted 100, Neutrophils % (Manual) 83H, Lymphocytes % (Manual) 15L, Monocytes % (Manual) 2, Eosinophils % (Manual) 0, Basophils % (Manual) 0, Band Neutrophils 0, Platelet Estimate Adequate, Platelet Morphology Normal, Hypochromasia 1+, Sodium Level 138, Potassium Level 3.7, Chloride Level 102, Carbon Dioxide Level 29, Anion Gap 7, Blood Urea Nitrogen 96H, Creatinine 2.7H, Estimat Glomerular Filtration Rate 18.9, Glucose Level 105, Calcium Level 7.8L, Phosphorus Level 2.8, Magnesium Level 2.3, Total Bilirubin 0.6, Aspartate Amino Transf (AST/SGOT) 29, Alanine Aminotransferase (ALT/SGPT) 11L, Alkaline Phosphatase 127H, C-Reactive Protein, Quantitative 12.6H, Pro-B-Type Natriuretic Peptide > 87509C, Total Protein 5.2L, Albumin 1.1L, Globulin 4.1, Albumin/Globulin Ratio 0.3L Height (Feet): 5 Height (Inches): 3.00 Weight (Pounds): 128 General Appearance: no apparent distress, lethargic EENT: other - Intubated on ventilator Cardiovascular: normal rate Respiratory/Chest: decreased breath sounds Abdomen: distended Johnny Houston MD Apr 01, 2020 14:28
--- NOTE | 2020-04-01 15:15 | Pulmonology Progress Note ---
Subjective ROS Limited/Unobtainable: Yes Interval Events: s/p transfusion Constitutional: Reports: fever, other - resolved HEENT: Repors: no symptoms Respiratory: Reports: no symptoms Cardiovascular: Reports: no symptoms Gastrointestinal/Abdominal: Reports: diarrhea Allergies: Coded Allergies: No Known Allergies (Unverified , 10/10/17) All Systems: reviewed and negative except above Objective Last 24 Hour Vital Signs Date Time Temp Pulse Resp B/P (MAP) Pulse Ox O2 Delivery O2 Flow Rate FiO2 04/01/20 12:00 97.9 64 14 143/63 (89) 100 64 04/01/20 11:52 64 04/01/20 10:45 63 22 40 04/01/20 08:00 59 04/01/20 08:00 98.4 88 29 114/58 (76) 99 84 04/01/20 08:00 40 04/01/20 08:00 Mechanical Ventilator 04/01/20 07:05 63 22 40 04/01/20 05:03 63 158/75 04/01/20 04:00 63 04/01/20 04:00 98.3 63 18 158/75 (102) 98 61 04/01/20 04:00 40 04/01/20 04:00 Mechanical Ventilator 04/01/20 02:19 66 20 40 04/01/20 00:00 97.9 65 22 133/70 (91) 96 61 04/01/20 00:00 55 04/01/20 00:00 Mechanical Ventilator 04/01/20 00:00 40 03/31/20 23:15 55 14 40 03/31/20 21:41 71 142/72 03/31/20 20:00 59 03/31/20 20:00 Mechanical Ventilator 03/31/20 20:00 97.7 63 17 142/72 (95) 93 61 03/31/20 20:00 40 03/31/20 19:21 64 19 40 03/31/20 16:00 Mechanical Ventilator 03/31/20 16:00 40 03/31/20 16:00 97.0 61 16 128/64 (85) 100 61 03/31/20 16:00 57 Intake and Output 03/31/20 04/01/20 19:00 07:00 Intake Total 455 ml 415 ml Balance 455 ml 415 ml Intake Free Water 100 ml Tube Feeding 455 ml 315 ml # Bowel Movements 1 General Appearance: no acute distress HEENT: atraumatic Respiratory: lungs clear Cardiovascular: normal rate, regular rhythm Extremities: other - edema bilateral Laboratory Tests 04/01/20 04:50: White Blood Count 6.6, Red Blood Count 2.48L, Hemoglobin 7.4L, Hematocrit 22.6L, Mean Corpuscular Volume 91, Mean Corpuscular Hemoglobin 30.0, Mean Corpuscular Hemoglobin Concent 33.0, Red Cell Distribution Width 14.0, Platelet Count 180, Mean Platelet Volume 6.3L, Neutrophils (%) (Auto) , Lymphocytes (%) (Auto) , Monocytes (%) (Auto) , Eosinophils (%) (Auto) , Basophils (%) (Auto) , Differential Total Cells Counted 100, Neutrophils % (Manual) 83H, Lymphocytes % (Manual) 15L, Monocytes % (Manual) 2, Eosinophils % (Manual) 0, Basophils % (Manual) 0, Band Neutrophils 0, Platelet Estimate Adequate, Platelet Morphology Normal, Hypochromasia 1+, Sodium Level 138, Potassium Level 3.7, Chloride Level 102, Carbon Dioxide Level 29, Anion Gap 7, Blood Urea Nitrogen 96H, Creatinine 2.7H, Estimat Glomerular Filtration Rate 18.9, Glucose Level 105, Calcium Level 7.8L, Phosphorus Level 2.8, Magnesium Level 2.3, Total Bilirubin 0.6, Aspartate Amino Transf (AST/SGOT) 29, Alanine Aminotransferase (ALT/SGPT) 11L, Alkaline Phosphatase 127H, C-Reactive Protein, Quantitative 12.6H, Pro-B-Type Natriuretic Peptide > 48300Z, Total Protein 5.2L, Albumin 1.1L, Globulin 4.1, Albumin/Globulin Ratio 0.3L Current Medications Medications (Trade) Dose Ordered Sig/Penny Route PRN Reason Start Time Stop Time Status Last Admin Dose Admin Acetaminophen (Tylenol) 650 mg Q6H PRN GT Mild Pain (Pain Scale 1-3) 03/02/20 22:30 04/01/20 22:29 03/29/20 03:43 Acetaminophen (Tylenol) 650 mg Q6H PRN GT Temp >100.5 03/03/20 03:00 04/01/20 22:29 03/23/20 21:49 Aspirin (ASA) 81 mg DAILY GT 03/07/20 09:00 04/21/20 08:59 04/01/20 09:00 Carvedilol (Coreg) 6.25 mg EVERY 8 HOURS GT 03/20/20 22:00 04/13/20 20:59 04/01/20 05:03 Chlorhexidine Gluconate (Ling-Hex 2%) 1 applic DAILY@1999 TOPIC 03/03/20 20:00 06/01/20 19:59 03/31/20 20:13 Dextrose (Dextrose 50%) 25 ml Q30M PRN IV Hypoglycemia 03/15/20 07:30 06/13/20 07:29 Dextrose (Dextrose 50%) 50 ml Q30M PRN IV Hypoglycemia 03/15/20 07:30 06/13/20 07:29 Famotidine (Pepcid I.v.) 20 mg Q12HR IVP 03/31/20 21:00 04/30/20 20:59 04/01/20 09:00 Hydralazine HCl (Apresoline) 25 mg Q6H PRN GT For High Blood Pressure 03/02/20 22:00 05/31/20 21:59 Hydrocortisone (Anusol HC) 25 mg Q12HR RECTAL 03/23/20 21:00 06/21/20 08:59 04/01/20 09:00 Hydromorphone HCl (Dilaudid) 0.5 mg Q4H PRN IVP For Pain 04/01/20 11:30 04/02/20 19:29 Loperamide HCl (Imodium) 2 mg Q6H PRN GT Diarrhea 03/06/20 12:45 04/05/20 12:44 03/06/20 13:01 Metoclopramide HCl (Reglan) 5 mg Q8HR IVP 03/04/20 11:45 04/03/20 11:44 04/01/20 05:02 Midodrine (Pro-Amatine) 10 mg EVERY 8 HOURS GT 03/17/20 22:00 06/01/20 12:59 03/31/20 13:08 Polyethylene Glycol (Miralax) 17 gm BEDTIME PRN GT Constipation 03/02/20 22:00 04/01/20 21:59 Sodium Hypochlorite (Dakin's Quarter Strength) 1 applic DAILY TOPIC 03/04/20 09:00 04/03/20 08:59 04/01/20 09:00 Sucralfate (Carafate) 1 gm EVERY 6 HOURS GT 03/17/20 18:00 06/09/20 08:59 04/01/20 11:52 Tramadol HCl (Ultram) 50 mg Q6H PRN ORAL Moderate Pain (Pain Scale 4-6) 03/26/20 19:30 04/02/20 19:29 03/31/20 21:41 Zinc Oxide (Zinc Oxide) 1 applic Q8HR TOPIC 03/25/20 22:00 06/22/20 17:59 04/01/20 05:25 Assessment/Plan Assessment/Plan 1. Chronic respiratory failure. - CT chest/abd/pelv: improving pleural effusion 2. Mechanical ventilation. - Now back to 40% FiO2 saturating well - suction secretions as needed 3. Chronic tracheostomy. 4. Chronic G-tube. 5. Anemia. - s/p transfusion - stool OB positive (03/02, 03/03, 03/22) - off anticoags 6. Renal failure. 7. Leukocytosis and sepsis. - WBC now wnl 8. Sepsis UTI 9. Gram positive cocci bacteremia - f/u BCx negative for growth 10. COVID-19 negative 11. Diarrhea - C. diff neg 12. Hypoglycemia - resolved 13. Bradycardia - no urgent indication for pacemaker per cardio 14. Gastric ulcer - on PPI -No active bleeding - GI following 15. Pleural effusion - small; insufficient volume for safe thoracentesis 16. thoracic aortic aneurysm - noted on CT imaging - pt needs emergent transfer out to [facility] for CT surgery evaluation, primary MD aware - Pt might not be a candidate for TAA repair 17. Ascites - s/p paracentesis (03/18), 2.3L out 18. DVT ppx - on SCD -Venous duplex ultrasound of legs negative for DVT (03/25) The care of this patient was discussed with my supervising physician Time spent for this encounter was approximately 31 minutes Cruz Wilson Apr 01, 2020 15:15
[2020-04-01 16:00] VITALS: BP 163/77
[2020-04-01] MEDS: traMADol 50mg tab ORAL PRN (18:13)
--- NOTE | 2020-04-01 19:29 | NUR ---
NURSE HAND-OFF REPORT: Important Events on Shift: Transfused 1 unit PRBC Patient Status: alert, able to communicate pain Diet: Nepro x 35 cc/hr Pending Orders: Pending Results/Labs: Pending MD notification: Latest Vital Signs: Temperature 97.7 , Pulse 67 , B/P 163 /77 , Respiratory Rate 21 , O2 SAT 96 , Mechanical Ventilator, O2 Flow Rate . Vital Sign Comment: EKG Rhythm: Sinus Rhythm Rhythm change?: N MD Notified?: N -Dr Екатерина HATFIELD Response: No New Orders Received Latest [place] Fall Score: 60 Fall Risk: High Risk Safety Measures: Call light Within Reach, Bed Alarm Zone 2, Side Rails Side Rails x3, Bed position Low and Locked. Fall Precautions: Yellow Socks Report given to Vaughn ZIMMERMAN.
--- NOTE | 2020-04-01 19:34 | NUR ---
NURSE NOTES: Report received from ERASMO Valencia. Observed pt lying in the bed, awake, trach-vent, able to answer questions by nodding head. SR noted at this time. Trach to vent, Shiley 7, AC14/500/40%/PEEP5, tolerating, saturating at 96%. GT intact, redness around the stoma, running Nepro at 35cc/hr. Sacral s4 noted. R trochanger s2 noted. IV on L FA 18G, intact. R H 22G, intact. Bed in the lowest position. Side rails up x3. Will continue to monitor.
[2020-04-01 20:00] VITALS: BP 146/83
[2020-04-01] MEDS: Dyna-Hex 2% Top Sol 2oz TOPIC SCH (20:08)
[2020-04-01] MEDS: HYDROmorphone 1mg/ml Carpuject IVP PRN (20:08)
[2020-04-01] MEDS ORDERED: NS 275ml ONE (20:09)
[2020-04-01] MEDS ORDERED: D5 1/2NS 1000ml IV ONE (20:09)
--- NOTE | 2020-04-01 22:56 | Cardiology Progress Note ---
Subjective Heart rates remain in stable range; carvedilol therapy tolerated without significant bradycardia, in setting of aortic dissection. BP parameters continue trending upward. CT scan revealed extensive thoracoabd aortic dissection- Chase Type B Dialysis per renal Pt is s/p paracentesis (50cc) Objective Last 24 Hour Vital Signs Date Time Temp Pulse Resp B/P (MAP) Pulse Ox O2 Delivery O2 Flow Rate FiO2 04/01/20 22:00 55 141/82 04/01/20 20:00 Mechanical Ventilator 04/01/20 20:00 40 04/01/20 20:00 98.5 62 18 146/83 (104) 99 71 04/01/20 20:00 65 04/01/20 19:52 68 24 40 04/01/20 16:00 Mechanical Ventilator 04/01/20 16:00 40 04/01/20 16:00 97.7 71 21 163/77 (105) 96 71 04/01/20 16:00 67 04/01/20 15:34 63 163/77 04/01/20 15:26 63 14 40 04/01/20 12:00 97.9 64 14 143/63 (89) 100 64 04/01/20 12:00 40 04/01/20 12:00 Mechanical Ventilator 04/01/20 11:52 64 04/01/20 10:45 63 22 40 04/01/20 08:00 59 04/01/20 08:00 98.4 88 29 114/58 (76) 99 84 04/01/20 08:00 40 04/01/20 08:00 Mechanical Ventilator 04/01/20 07:05 63 22 40 04/01/20 05:03 63 158/75 04/01/20 04:00 63 04/01/20 04:00 98.3 63 18 158/75 (102) 98 61 04/01/20 04:00 40 04/01/20 04:00 Mechanical Ventilator 04/01/20 02:19 66 20 40 04/01/20 00:00 97.9 65 22 133/70 (91) 96 61 04/01/20 00:00 55 04/01/20 00:00 Mechanical Ventilator 04/01/20 00:00 40 03/31/20 23:15 55 14 40 HEENT: Thin Trach secretions RHYTHM: NSR, SB LUNGS: bilateral rhonchi - few, trach site clean CARDIAC: normal rate, regular rhythm, normal S1 and S2 ABDOMEN: normal bowel sounds, non tender, soft, G-Tube intact EXTREMITIES: normal range of motion, non-tender, normal inspection Laboratory Tests Test 04/01/20 04:50 White Blood Count 6.6 K/UL (4.8-10.8) Red Blood Count 2.48 M/UL (4.20-5.40) L Hemoglobin 7.4 G/DL (12.0-16.0) L Hematocrit 22.6 % (37.0-47.0) L Mean Corpuscular Volume 91 FL (80-99) Mean Corpuscular Hemoglobin 30.0 PG (27.0-31.0) Mean Corpuscular Hemoglobin Concent 33.0 G/DL (32.0-36.0) Red Cell Distribution Width 14.0 % (11.6-14.8) Platelet Count 180 K/UL (150-450) Mean Platelet Volume 6.3 FL (6.5-10.1) L Neutrophils (%) (Auto) % (45.0-75.0) Lymphocytes (%) (Auto) % (20.0-45.0) Monocytes (%) (Auto) % (1.0-10.0) Eosinophils (%) (Auto) % (0.0-3.0) Basophils (%) (Auto) % (0.0-2.0) Differential Total Cells Counted 100 Neutrophils % (Manual) 83 % (45-75) H Lymphocytes % (Manual) 15 % (20-45) L Monocytes % (Manual) 2 % (1-10) Eosinophils % (Manual) 0 % (0-3) Basophils % (Manual) 0 % (0-2) Band Neutrophils 0 % (0-8) Platelet Estimate Adequate Platelet Morphology Normal Hypochromasia 1+ Sodium Level 138 MMOL/L (136-145) Potassium Level 3.7 MMOL/L (3.5-5.1) Chloride Level 102 MMOL/L (98-107) Carbon Dioxide Level 29 MMOL/L (21-32) Anion Gap 7 mmol/L (5-15) Blood Urea Nitrogen 96 mg/dL (7-18) H Creatinine 2.7 MG/DL (0.55-1.30) H Estimat Glomerular Filtration Rate 18.9 mL/min (>60) Glucose Level 105 MG/DL (74-106) Calcium Level 7.8 MG/DL (8.5-10.1) L Phosphorus Level 2.8 MG/DL (2.5-4.9) Magnesium Level 2.3 MG/DL (1.8-2.4) Total Bilirubin 0.6 MG/DL (0.2-1.0) Aspartate Amino Transf (AST/SGOT) 29 U/L (15-37) Alanine Aminotransferase (ALT/SGPT) 11 U/L (12-78) L Alkaline Phosphatase 127 U/L (46-116) H C-Reactive Protein, Quantitative 12.6 mg/dL (0.00-0.90) H Pro-B-Type Natriuretic Peptide > 77838 pg/mL (0-125) H Total Protein 5.2 G/DL (6.4-8.2) L Albumin 1.1 G/DL (3.4-5.0) L Globulin 4.1 g/dL Albumin/Globulin Ratio 0.3 (1.0-2.7) L Assessment/Plan Assessment/Plan Aortic dissection - Chase Type B Sepsis with recovered shock Sinus node disease with bradycardia Hx pacemaker explant Ischemic cardiomyopathy - hx CABG? Paroxysmal Atrial Fib Respiratory failure with trach Hx thoracic aortic aneurysm repair ESRD Anemia HypoPO4 Will advance dose of beta flori further (with hold parameter). pvc monitor Vent support Antimicrobials DVT prophyl No indication for pacemaker at present. HD/UF per renal Not a candidate for cardiothoracic surgery in this setting. Deni Willams MD Apr 01, 2020 22:56
--- NOTE | 2020-04-01 23:57 | General Progress Note ---
Subjective Constitutional: Reports: no symptoms HEENT: Reports: no symptoms Cardiovascular: Reports: no symptoms Respiratory: Reports: no symptoms Gastrointestinal/Abdominal: Reports: no symptoms Genitourinary: Reports: no symptoms Neurologic/Psychiatric: Reports: no symptoms Endocrine: Reports: no symptoms Hematologic/Lymphatic: Reports: no symptoms Allergies: Coded Allergies: No Known Allergies (Unverified , 10/10/17) Objective Last 24 Hour Vital Signs Date Time Temp Pulse Resp B/P (MAP) Pulse Ox O2 Delivery O2 Flow Rate FiO2 04/01/20 23:21 66 18 40 04/01/20 22:00 55 141/82 04/01/20 20:00 Mechanical Ventilator 04/01/20 20:00 40 04/01/20 20:00 98.5 62 18 146/83 (104) 99 71 04/01/20 20:00 65 04/01/20 19:52 68 24 40 04/01/20 16:00 Mechanical Ventilator 04/01/20 16:00 40 04/01/20 16:00 97.7 71 21 163/77 (105) 96 71 04/01/20 16:00 67 04/01/20 15:34 63 163/77 04/01/20 15:26 63 14 40 04/01/20 12:00 97.9 64 14 143/63 (89) 100 64 04/01/20 12:00 40 04/01/20 12:00 Mechanical Ventilator 04/01/20 11:52 64 04/01/20 10:45 63 22 40 04/01/20 08:00 59 04/01/20 08:00 98.4 88 29 114/58 (76) 99 84 04/01/20 08:00 40 04/01/20 08:00 Mechanical Ventilator 04/01/20 07:05 63 22 40 04/01/20 05:03 63 158/75 04/01/20 04:00 63 04/01/20 04:00 98.3 63 18 158/75 (102) 98 61 04/01/20 04:00 40 04/01/20 04:00 Mechanical Ventilator 04/01/20 02:19 66 20 40 04/01/20 00:00 97.9 65 22 133/70 (91) 96 61 04/01/20 00:00 55 04/01/20 00:00 Mechanical Ventilator 04/01/20 00:00 40 Intake and Output 03/31/20 04/01/20 19:00 07:00 Intake Total 455 ml 535 ml Balance 455 ml 535 ml Intake Free Water 150 ml Tube Feeding 455 ml 385 ml # Bowel Movements 1 Laboratory Tests 04/01/20 04:50: White Blood Count 6.6, Red Blood Count 2.48L, Hemoglobin 7.4L, Hematocrit 22.6L, Mean Corpuscular Volume 91, Mean Corpuscular Hemoglobin 30.0, Mean Corpuscular Hemoglobin Concent 33.0, Red Cell Distribution Width 14.0, Platelet Count 180, Mean Platelet Volume 6.3L, Neutrophils (%) (Auto) , Lymphocytes (%) (Auto) , Monocytes (%) (Auto) , Eosinophils (%) (Auto) , Basophils (%) (Auto) , Differential Total Cells Counted 100, Neutrophils % (Manual) 83H, Lymphocytes % (Manual) 15L, Monocytes % (Manual) 2, Eosinophils % (Manual) 0, Basophils % (Manual) 0, Band Neutrophils 0, Platelet Estimate Adequate, Platelet Morphology Normal, Hypochromasia 1+, Sodium Level 138, Potassium Level 3.7, Chloride Level 102, Carbon Dioxide Level 29, Anion Gap 7, Blood Urea Nitrogen 96H, Creatinine 2.7H, Estimat Glomerular Filtration Rate 18.9, Glucose Level 105, Calcium Level 7.8L, Phosphorus Level 2.8, Magnesium Level 2.3, Total Bilirubin 0.6, Aspartate Amino Transf (AST/SGOT) 29, Alanine Aminotransferase (ALT/SGPT) 11L, Alkaline Phosphatase 127H, C-Reactive Protein, Quantitative 12.6H, Pro-B-Type Natriuretic Peptide > 99046X, Total Protein 5.2L, Albumin 1.1L, Globulin 4.1, Albumin/Globulin Ratio 0.3L Height (Feet): 5 Height (Inches): 3.00 Weight (Pounds): 128 General Appearance: no apparent distress, lethargic EENT: normal ENT inspection Neck: supple Cardiovascular: normal rate, regular rhythm, no gallop/murmur, no JVD Respiratory/Chest: decreased breath sounds, rhonchi - left Abdomen: normal bowel sounds, no organomegaly, no mass Extremities: non-tender Neurologic: alert, responsive Skin: warm/dry Assessment/Plan Status Narrative Awake alert afebrile hemodynamically stable eye contact normal attention span not no verbal response patient blood pressure and laboratory tests are stable for the last several days 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 Lucas Canales MD, MD Apr 01, 2020 23:57
[2020-04-02] VITALS: BP 156/85
[2020-04-02] MEDS: HYDROmorphone 1mg/ml Carpuject IVP PRN ×4 (00:29→20:56)
--- NOTE | 2020-04-02 00:33 | NUR ---
NURSE NOTES: patient c/o pain, sobbing, facial grimacing, FLACC of 8 noted. Pain prn given. Reposition done. Oral care given. Will continue to monitor.
[2020-04-02 04:00] VITALS: BP 151/80
--- NOTE | 2020-04-02 04:00 | NUR ---
NURSE NOTES: GT site leaking noted. No other distress noted. Bed bath given. Sacral dressing changed. Reposition done. Oral care given. Will continue to monitor.
[2020-04-02 04:18] LABS: BASOPHILS % (AUTO) 1.1 % (0.0-2.0); EOSINOPHILS % (AUTO) 0.1 % (0.0-3.0); HEMATOCRIT 27.2 % (37.0-47.0); HEMOGLOBIN 9.1 G/DL (12.0-16.0); LYMPHOCYTES % (AUTO) 20.2 % (20.0-45.0); MEAN CORPUSCULAR VOLUME 91 FL (80-99); MONOCYTES % (AUTO) 5.3 % (1.0-10.0); NEUTROPHILS % (AUTO) 73.3 % (45.0-75.0); PLATELET COUNT 201 K/UL (150-450); RED CELL DISTRIBUTION WIDTH 13.6 % (11.6-14.8); WHITE BLOOD COUNT 7.7 K/UL (4.8-10.8)
[2020-04-02 04:37] LABS: CALCIUM 8.2 MG/DL (8.5-10.1); CREATININE 2.8 MG/DL (0.55-1.30); POTASSIUM 3.8 MMOL/L (3.5-5.1)
[2020-04-02] MEDS: Sucralfate 1gm tab GT SCH ×4 (05:18→23:19)
[2020-04-02] MEDS: Zinc Oxide Oint 2oz TOPIC SCH ×3 (05:19→22:12)
[2020-04-02] MEDS: Midodrine 10mg tab GT SCH ×3 (05:19→21:29)
[2020-04-02] MEDS: Metoclopramide 10mg/2ml Inj IVP SCH ×3 (05:19→22:12)
--- NOTE | 2020-04-02 06:43 | Hematology/Onc Progress Note ---
Assessment/Plan Assessment/Plan # Leukocytosis, now with likely bacteremia, as per ID care --> Cxr: : Large left abiola consolidation/effusion --> wbc 30-->40-->27->30->29-->35->32-->28-->21->10.2-->6.6 --> ABX angelo/vanc-->tobra/edson/vanc-->dapto/ceftazadine->off abx --> smear reviewed --> ID recs are noted # Anemia of chronic disease due to underlying chronic medical issues, multifactorial --> Anemia workup has been reviewed, cw acd --> No evidence of hemolysis is noted, peripheral smear has been reviewed. --> Hgb goal >7. Transfuse prn. --> Epogen required in prior --> Medications have been reviewed --> low threshold for gi evaluation in case has occult + --> hgb 1.9-->5-->7.1-->8.8-->8.1->7.5-> 8.2-->6. 8-->9.2-->8.4->7.7-->7.1-->8.8->8.7 --> 1 unit prbc1/, 2 units 01/15, 03/02, 03/18, 03/24 --> gi eval as needed # Elevated tumor markers, cea and ca 19.9 --> reviewed prior 01/27/20 cat scan a/p --> no masses noted, hold off further extensive w/u # Thrombocytopenia likely reactive v medication induced --> plt 200-->129->91-->86->100->78-->86-->87-->125->135 --> transfuse as needed --> r/o dic, has been ruled out --> anticoag as needed # Coagulopathy with inr 1.5 --> consider vit k/ffp as needed preprocedure --> labs noted # Aortic dissection as seen on Ct ==> when stable, consider transfer hloc # JAVIER initially >2 --> on ivfs --> per renal # Elevated d-dimer, likely infection related --> venous duplex prior neg --> in prior neg # Dysphagia s/p peg --> as per gi # Thoracic aortic dissection --> s/p repair early 2017 # Chronic Resp failure -> s/p trach/vent # Psychiatric history on ativan/haldol # [place] resident # Dvt ppx --> scds The timing of this note does not necessarily reflect the time of the patient was seen. Greatly appreciate consultation. Subjective Allergies: Coded Allergies: No Known Allergies (Unverified , 10/10/17) All Systems: reviewed and negative except above Subjective 03/04 for 1 unit transfusion this am as hgb remains low, wbc better 03/05 egd was done did show large nonbleeding gastric ulcer, high tumor markers 03/06 nv, with davis overnight, bp remains stable, with occult + stool, roman Rn 03/09 nv, remains stable, on vanc/tobra/edson, meds reviewed, no bleeding 03/10 nv, on vent, no bleeding, receiving abx, no night sweats 03/11 nv, dw surgeon and pcp, with aortic dissection to transfer [facility] when stable 03/12 nv, labs reviewed, wbc 21, hgb 7.5, otherwise is comfortable 03/13 nv, labs noted, no bleeding, wbc 13, hgb improved, meds reviewed 03/15 nv, meds reviewed, labs noted, no bleeding, on vent 03/16 nv/tv, peg, meds noted, hgb remains stable, improved to 10 03/17 s/p egd, with gastric ulceration noted, hgb stable 03/18 labs noted, hgb 6.8, to get 1 unit prbc, meds reviewed 03/19 hgb 9.2, plt 78, no hemoptysis, is comfortable 03/20 labs reviewed, meds noted, no bleeding, roman rn 03/22 wound treatment, vent, with gtube, labs reviewed, roman rn 03/23 labs reviewed, meds noted, no bleeding, with gt 03/24 large bm overnight that was bloody, hgb 7.1, roman rn 03/25 labs pending this am, comfortable, nsr, meds noted 03/26 nv, vent, with gt, labs reviewed, hgb 8.8 03/27 nv, vent, labs reviewed, with gt, hgb stable 03/29 nv, vent, labs pending, meds reviewed, no bleeding 03/30 nv, t/v, with gt feeds, labs reviewed, meds noted 03/31 nv, t/v, oral secretions were suctioned, meds reviewed 04/01 nv, t/v, labs are reviewed, meds noted, hgb 7.4 04/02 gt leaking, facial grimacing, labs noted, no bleeding, dw rn Objective Objective Current Medications Medications (Trade) Dose Ordered Sig/Penny Route PRN Reason Start Time Stop Time Status Last Admin Dose Admin Aspirin (ASA) 81 mg DAILY GT 03/07/20 09:00 04/21/20 08:59 04/01/20 09:00 Carvedilol (Coreg) 12.5 mg EVERY 12 HOURS GT 04/02/20 09:00 05/02/20 08:59 Chlorhexidine Gluconate (Ling-Hex 2%) 1 applic DAILY@1999 TOPIC 03/03/20 20:00 06/01/20 19:59 04/01/20 20:08 Dextrose (Dextrose 50%) 25 ml Q30M PRN IV Hypoglycemia 03/15/20 07:30 06/13/20 07:29 Dextrose (Dextrose 50%) 50 ml Q30M PRN IV Hypoglycemia 03/15/20 07:30 06/13/20 07:29 Famotidine (Pepcid I.v.) 20 mg Q12HR IVP 03/31/20 21:00 04/30/20 20:59 04/01/20 20:08 Hydralazine HCl (Apresoline) 25 mg Q6H PRN GT For High Blood Pressure 03/02/20 22:00 05/31/20 21:59 Hydrocortisone (Anusol HC) 25 mg Q12HR RECTAL 03/23/20 21:00 06/21/20 08:59 04/01/20 20:08 Hydromorphone HCl (Dilaudid) 0.5 mg Q4H PRN IVP For Pain 04/01/20 11:30 04/02/20 19:29 04/02/20 05:20 Loperamide HCl (Imodium) 2 mg Q6H PRN GT Diarrhea 03/06/20 12:45 04/05/20 12:44 03/06/20 13:01 Metoclopramide HCl (Reglan) 5 mg Q8HR IVP 03/04/20 11:45 04/03/20 11:44 04/02/20 05:19 Midodrine (Pro-Amatine) 10 mg EVERY 8 HOURS GT 03/17/20 22:00 06/01/20 12:59 03/31/20 13:08 Sodium Hypochlorite (Dakin's Quarter Strength) 1 applic DAILY TOPIC 03/04/20 09:00 04/03/20 08:59 04/01/20 09:00 Sucralfate (Carafate) 1 gm EVERY 6 HOURS GT 03/17/20 18:00 06/09/20 08:59 04/02/20 05:18 Tramadol HCl (Ultram) 50 mg Q6H PRN ORAL Moderate Pain (Pain Scale 4-6) 03/26/20 19:30 04/02/20 19:29 04/01/20 18:13 Zinc Oxide (Zinc Oxide) 1 applic Q8HR TOPIC 03/25/20 22:00 06/22/20 17:59 04/02/20 05:19 Last 24 Hour Vital Signs Date Time Temp Pulse Resp B/P (MAP) Pulse Ox O2 Delivery O2 Flow Rate FiO2 04/02/20 04:00 Mechanical Ventilator 04/02/20 04:00 98.9 70 18 151/80 (103) 100 71 04/02/20 04:00 40 04/02/20 04:00 81 04/02/20 03:42 70 22 40 04/02/20 00:00 68 04/02/20 00:00 40 04/02/20 00:00 98.7 69 16 156/85 (108) 99 71 04/02/20 00:00 Mechanical Ventilator 04/01/20 23:21 66 18 40 04/01/20 22:00 55 141/82 04/01/20 20:00 Mechanical Ventilator 04/01/20 20:00 40 04/01/20 20:00 98.5 62 18 146/83 (104) 99 71 04/01/20 20:00 65 04/01/20 19:52 68 24 40 04/01/20 16:00 Mechanical Ventilator 04/01/20 16:00 40 04/01/20 16:00 97.7 71 21 163/77 (105) 96 71 04/01/20 16:00 67 04/01/20 15:34 63 163/77 2/17/21 15:26 63 14 40 04/01/20 12:00 97.9 64 14 143/63 (89) 100 64 04/01/20 12:00 40 04/01/20 12:00 Mechanical Ventilator 04/01/20 11:52 64 04/01/20 10:45 63 22 40 04/01/20 08:00 59 04/01/20 08:00 98.4 88 29 114/58 (76) 99 84 04/01/20 08:00 40 04/01/20 08:00 Mechanical Ventilator 04/01/20 07:05 63 22 40 04/01/20 05:03 63 158/75 04/01/20 04:00 63 04/01/20 04:00 98.3 63 18 158/75 (102) 98 61 04/01/20 04:00 40 04/01/20 04:00 Mechanical Ventilator 04/01/20 02:19 66 20 40 04/01/20 00:00 97.9 65 22 133/70 (91) 96 61 04/01/20 00:00 55 04/01/20 00:00 Mechanical Ventilator 04/01/20 00:00 40 03/31/20 23:15 55 14 40 03/31/20 21:41 71 142/72 03/31/20 20:00 59 03/31/20 20:00 Mechanical Ventilator 03/31/20 20:00 97.7 63 17 142/72 (95) 93 61 03/31/20 20:00 40 03/31/20 19:21 64 19 40 03/31/20 16:00 Mechanical Ventilator 03/31/20 16:00 40 03/31/20 16:00 97.0 61 16 128/64 (85) 100 61 03/31/20 16:00 57 03/31/20 13:08 60 147/67 03/31/20 13:05 57 14 40 03/31/20 12:19 60 03/31/20 12:00 40 03/31/20 12:00 97.5 54 16 147/67 (93) 97 54 03/31/20 12:00 Mechanical Ventilator 03/31/20 08:24 54 03/31/20 08:00 Mechanical Ventilator 03/31/20 08:00 40 03/31/20 08:00 97.9 59 16 128/61 (83) 100 59 03/31/20 07:00 53 14 40 Intake and Output 04/01/20 04/02/20 19:00 07:00 Intake Total 70 ml 535 ml Balance 70 ml 535 ml Intake Free Water 150 ml Tube Feeding 70 ml 385 ml # Bowel Movements 3 1 Labs Test 03/30/20 07:48 04/01/20 04:50 04/02/20 03:17 HIV (1&2) Antibody Rapid Negative (NEGATIVE) White Blood Count 6.6 K/UL (4.8-10.8) 7.7 K/UL (4.8-10.8) Red Blood Count 2.48 M/UL (4.20-5.40) 3.00 M/UL (4.20-5.40) Hemoglobin 7.4 G/DL (12.0-16.0) 9.1 G/DL (12.0-16.0) Hematocrit 22.6 % (37.0-47.0) 27.2 % (37.0-47.0) Mean Corpuscular Volume 91 FL (80-99) 91 FL (80-99) Mean Corpuscular Hemoglobin 30.0 PG (27.0-31.0) 30.4 PG (27.0-31.0) Mean Corpuscular Hemoglobin Concent 33.0 G/DL (32.0-36.0) 33.5 G/DL (32.0-36.0) Red Cell Distribution Width 14.0 % (11.6-14.8) 13.6 % (11.6-14.8) Platelet Count 180 K/UL (150-450) 201 K/UL (150-450) Mean Platelet Volume 6.3 FL (6.5-10.1) 6.5 FL (6.5-10.1) Neutrophils (%) (Auto) % (45.0-75.0) 73.3 % (45.0-75.0) Lymphocytes (%) (Auto) % (20.0-45.0) 20.2 % (20.0-45.0) Monocytes (%) (Auto) % (1.0-10.0) 5.3 % (1.0-10.0) Eosinophils (%) (Auto) % (0.0-3.0) 0.1 % (0.0-3.0) Basophils (%) (Auto) % (0.0-2.0) 1.1 % (0.0-2.0) Differential Total Cells Counted 100 Neutrophils % (Manual) 83 % (45-75) Lymphocytes % (Manual) 15 % (20-45) Monocytes % (Manual) 2 % (1-10) Eosinophils % (Manual) 0 % (0-3) Basophils % (Manual) 0 % (0-2) Band Neutrophils 0 % (0-8) Platelet Estimate Adequate Platelet Morphology Normal Hypochromasia 1+ Sodium Level 138 MMOL/L (136-145) 140 MMOL/L (136-145) Potassium Level 3.7 MMOL/L (3.5-5.1) 3.8 MMOL/L (3.5-5.1) Chloride Level 102 MMOL/L (98-107) 103 MMOL/L (98-107) Carbon Dioxide Level 29 MMOL/L (21-32) 29 MMOL/L (21-32) Anion Gap 7 mmol/L (5-15) 8 mmol/L (5-15) Blood Urea Nitrogen 96 mg/dL (7-18) 108 mg/dL (7-18) Creatinine 2.7 MG/DL (0.55-1.30) 2.8 MG/DL (0.55-1.30) Estimat Glomerular Filtration Rate 18.9 mL/min (>60) 18.1 mL/min (>60) Glucose Level 105 MG/DL (74-106) 88 MG/DL (74-106) Calcium Level 7.8 MG/DL (8.5-10.1) 8.2 MG/DL (8.5-10.1) Phosphorus Level 2.8 MG/DL (2.5-4.9) Magnesium Level 2.3 MG/DL (1.8-2.4) Total Bilirubin 0.6 MG/DL (0.2-1.0) Aspartate Amino Transf (AST/SGOT) 29 U/L (15-37) Alanine Aminotransferase (ALT/SGPT) 11 U/L (12-78) Alkaline Phosphatase 127 U/L (46-116) C-Reactive Protein, Quantitative 12.6 mg/dL (0.00-0.90) Pro-B-Type Natriuretic Peptide > 53875 pg/mL (0-125) Total Protein 5.2 G/DL (6.4-8.2) Albumin 1.1 G/DL (3.4-5.0) Globulin 4.1 g/dL Albumin/Globulin Ratio 0.3 (1.0-2.7) Height (Feet): 5 Height (Inches): 3.00 Weight (Pounds): 128 Objective Physical Exam: Vitals: reviewed General: NAD HEENT: nc, at Neck: supple ++trach/vent Chest: clear breath sounds bilaterally Cardiovascular: RRR, no s3, s4 Abdomen: soft, nontender, nd +gtube Extremities: no cce, normal range of motion Neuro: alert Evan Muhammad MD Apr 02, 2020 06:43
--- NOTE | 2020-04-02 07:05 | NUR ---
NURSE NOTES: Report received from ERASMO Landry. patient is on bed, sleeping, opens eyes when greeted, no signs of grimacing or distress noted. T-V S7 with settings of AC 14, TV 500, FiO2 40%, PEEP 5, tolerating well. On GT feeding, patent, intact, running nephro at 35 cc/hr, tolerating well. Patient has a purewick. RU chest subclavian perma cath for HD, and a L FA 20 g, patent, intact, saline locked. HOB elevated, bed is on lowest position, side rails up, call light within reach. Will continue to be monitored. Will continue plan of care.
--- NOTE | 2020-04-02 07:05 | NUR ---
NURSE HAND-OFF REPORT: Important Events on Shift: No acute distress noted. GT leaking noted. Patient Status: SR and SB. Vital stable. Diet: Nepro at 35cc Pending Orders: [] Pending Results/Labs:[] Pending MD notification:[] Latest Vital Signs: Temperature 98.9 , Pulse 71 , B/P 151 /80 , Respiratory Rate 18 , O2 SAT 100 , Mechanical Ventilator, O2 Flow Rate . Vital Sign Comment: [] EKG Rhythm: Sinus Rhythm Rhythm change?: N Notified?: N -Dr Екатерина HATFIELD Response: No New Orders Received Latest [place] Fall Score: 60 Fall Risk: High Risk Safety Measures: Call light Within Reach, Bed Alarm Zone 2, Side Rails Side Rails x3, Bed position Low and Locked. Fall Precautions: Yellow Socks Report given to ERASMO Myers.
[2020-04-02 08:00] VITALS: BP 171/85
[2020-04-02] MEDS: Hydrocortisone 25mg supp RECTAL SCH ×2 (08:23→20:10)
[2020-04-02] MEDS: Aspirin Baby 81mg GT SCH (08:24)
[2020-04-02] MEDS: Dakin's 0.125% Soln (Quarter Strength) 16oz TOPIC SCH (08:24)
[2020-04-02] MEDS: Carvedilol 12.5mg tab GT SCH ×2 (08:26→20:10)
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
--- NOTE | 2020-04-02 09:00 | NUR ---
NURSE NOTES: Aspirin non-administered because patient has gastritis. Will continue to be monitored.
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
--- NOTE | 2020-04-02 10:23 | NUR ---
CASE MANAGEMENT:REVIEW 04/02/20 SI: SEPSIS. BACTEREMIA. AORTIC DISSECTION ANEMIA...S/P 15 UNITS PRBC'S. TRACH/VENT/GTUBE. ESRD/HD 98.2 71 16 171/85 99% ON VENT SUPPORT W/40% FIO2 H/H-9.1/27.2 BUN+108 CR+2.8 IS: COREG GT Q8HRS IV DILAUDID Q4HRS PRN ULTRAM GT Q6HRS PRN MIDODRINE GT Q8HRS CARAFATE GT Q6HRS ASA GT QD IV PEPCID Q12 IV REGLAN Q8HRS ANUSOL CA Q12 : STEP DOWN UNIT DCP: FROM [place] [facility] PLAN: CARAFATE FOR GASTRIC ULCER MONITOR H/H
--- NOTE | 2020-04-02 10:57 | Pulmonology Progress Note ---
Subjective ROS Limited/Unobtainable: Yes Interval Events: s/p transfusion Constitutional: Reports: fever, other - resolved HEENT: Repors: no symptoms Respiratory: Reports: no symptoms Cardiovascular: Reports: no symptoms Gastrointestinal/Abdominal: Reports: diarrhea Allergies: Coded Allergies: No Known Allergies (Unverified , 10/10/17) All Systems: reviewed and negative except above Objective Last 24 Hour Vital Signs Date Time Temp Pulse Resp B/P (MAP) Pulse Ox O2 Delivery O2 Flow Rate FiO2 04/02/20 08:26 69 160/72 04/02/20 08:00 40 04/02/20 08:00 Mechanical Ventilator 04/02/20 08:00 98.2 71 16 171/85 (113) 99 71 04/02/20 07:25 68 04/02/20 04:00 Mechanical Ventilator 04/02/20 04:00 98.9 70 18 151/80 (103) 100 71 04/02/20 04:00 40 04/02/20 04:00 81 04/02/20 03:42 70 22 40 04/02/20 00:00 68 04/02/20 00:00 40 04/02/20 00:00 98.7 69 16 156/85 (108) 99 71 04/02/20 00:00 Mechanical Ventilator 04/01/20 23:21 66 18 40 04/01/20 22:00 55 141/82 04/01/20 20:00 Mechanical Ventilator 04/01/20 20:00 40 04/01/20 20:00 98.5 62 18 146/83 (104) 99 71 04/01/20 20:00 65 04/01/20 19:52 68 24 40 04/01/20 16:00 Mechanical Ventilator 04/01/20 16:00 40 04/01/20 16:00 97.7 71 21 163/77 (105) 96 71 04/01/20 16:00 67 04/01/20 15:34 63 163/77 04/01/20 15:26 63 14 40 04/01/20 12:00 97.9 64 14 143/63 (89) 100 64 04/01/20 12:00 40 04/01/20 12:00 Mechanical Ventilator 04/01/20 11:52 64 Intake and Output 04/01/20 04/02/20 19:00 07:00 Intake Total 70 ml 535 ml Balance 70 ml 535 ml Intake Free Water 150 ml Tube Feeding 70 ml 385 ml # Bowel Movements 3 1 General Appearance: no acute distress HEENT: atraumatic Respiratory: lungs clear Cardiovascular: normal rate, regular rhythm Extremities: other - edema bilateral Laboratory Tests 04/01/20 12:49: POC Whole Blood Glucose [Pending] 04/01/20 17:57: POC Whole Blood Glucose 95 04/01/20 23:16: POC Whole Blood Glucose [Pending] 04/02/20 03:17: White Blood Count 7.7, Red Blood Count 3.00L, Hemoglobin 9.1L, Hematocrit 27.2L, Mean Corpuscular Volume 91, Mean Corpuscular Hemoglobin 30.4, Mean Corpuscular Hemoglobin Concent 33.5, Red Cell Distribution Width 13.6, Platelet Count 201, Mean Platelet Volume 6.5, Neutrophils (%) (Auto) 73.3, Lymphocytes (%) (Auto) 20.2, Monocytes (%) (Auto) 5.3, Eosinophils (%) (Auto) 0.1, Basophils (%) (Auto) 1.1, Sodium Level 140, Potassium Level 3.8, Chloride Level 103, Carbon Dioxide Level 29, Anion Gap 8, Blood Urea Nitrogen 108H, Creatinine 2.8H, Estimat Glomerular Filtration Rate 18.1, Glucose Level 88, Calcium Level 8.2L 04/02/20 05:14: POC Whole Blood Glucose [Pending] Current Medications Medications (Trade) Dose Ordered Sig/Penny Route PRN Reason Start Time Stop Time Status Last Admin Dose Admin Aspirin (ASA) 81 mg DAILY GT 03/07/20 09:00 04/21/20 08:59 04/01/20 09:00 Carvedilol (Coreg) 12.5 mg EVERY 12 HOURS GT 04/02/20 09:00 05/02/20 08:59 04/02/20 08:26 Chlorhexidine Gluconate (Ling-Hex 2%) 1 applic DAILY@1999 TOPIC 03/03/20 20:00 06/01/20 19:59 04/01/20 20:08 Dextrose (Dextrose 50%) 25 ml Q30M PRN IV Hypoglycemia 03/15/20 07:30 06/13/20 07:29 Dextrose (Dextrose 50%) 50 ml Q30M PRN IV Hypoglycemia 03/15/20 07:30 06/13/20 07:29 Famotidine (Pepcid I.v.) 20 mg Q12HR IVP 03/31/20 21:00 04/30/20 20:59 04/02/20 08:21 Hydralazine HCl (Apresoline) 25 mg Q6H PRN GT For High Blood Pressure 03/02/20 22:00 05/31/20 21:59 Hydrocortisone (Anusol HC) 25 mg Q12HR RECTAL 03/23/20 21:00 06/21/20 08:59 04/02/20 08:23 Hydromorphone HCl (Dilaudid) 0.5 mg Q4H PRN IVP For Pain 04/01/20 11:30 04/02/20 19:29 04/02/20 05:20 Loperamide HCl (Imodium) 2 mg Q6H PRN GT Diarrhea 03/06/20 12:45 04/05/20 12:44 03/06/20 13:01 Metoclopramide HCl (Reglan) 5 mg Q8HR IVP 03/04/20 11:45 05/02/20 11:44 04/02/20 05:19 Midodrine (Pro-Amatine) 10 mg EVERY 8 HOURS GT 03/17/20 22:00 06/01/20 12:59 03/31/20 13:08 Sodium Hypochlorite (Dakin's Quarter Strength) 1 applic DAILY TOPIC 03/04/20 09:00 05/02/20 08:59 04/02/20 08:24 Sucralfate (Carafate) 1 gm EVERY 6 HOURS GT 03/17/20 18:00 06/09/20 08:59 04/02/20 05:18 Tramadol HCl (Ultram) 50 mg Q6H PRN ORAL Moderate Pain (Pain Scale 4-6) 03/26/20 19:30 04/09/20 19:29 04/01/20 18:13 Zinc Oxide (Zinc Oxide) 1 applic Q8HR TOPIC 03/25/20 22:00 06/22/20 17:59 04/02/20 05:19 Assessment/Plan Assessment/Plan 1. Chronic respiratory failure. - CT chest/abd/pelv: improving pleural effusion 2. Mechanical ventilation. - Now back to 40% FiO2 saturating well - suction secretions as needed 3. Chronic tracheostomy. 4. Chronic G-tube. 5. Anemia. - s/p transfusion - stool OB positive (03/02, 03/03, 2/) - off anticoags 6. Renal failure. 7. Leukocytosis and sepsis. - WBC now wnl 8. Sepsis UTI 9. Gram positive cocci bacteremia - f/u BCx negative for growth 10. COVID-19 negative 11. Diarrhea - C. diff neg 12. Hypoglycemia - resolved 13. Bradycardia - no urgent indication for pacemaker per cardio 14. Gastric ulcer - on PPI -No active bleeding - GI following 15. Pleural effusion - small; insufficient volume for safe thoracentesis 16. thoracic aortic aneurysm - noted on CT imaging - pt needs emergent transfer out to [facility] for CT surgery evaluation, primary MD aware - Pt might not be a candidate for TAA repair 17. Ascites - s/p paracentesis (2/3), 2.3L out 18. DVT ppx - on SCD -Venous duplex ultrasound of legs negative for DVT (03/25) The care of this patient was discussed with my supervising physician Time spent for this encounter was approximately 31 minutes Cruz Wilson Apr 02, 2020 10:57
[2020-04-02 12:00] VITALS: BP 135/78
--- NOTE | 2020-04-02 12:10 | General Progress Note ---
Subjective ROS Limited/Unobtainable: No Allergies: Coded Allergies: No Known Allergies (Unverified , 10/10/17) Objective Last 24 Hour Vital Signs Date Time Temp Pulse Resp B/P (MAP) Pulse Ox O2 Delivery O2 Flow Rate FiO2 04/02/20 08:26 69 160/72 04/02/20 08:00 40 04/02/20 08:00 Mechanical Ventilator 04/02/20 08:00 98.2 71 16 171/85 (113) 99 71 04/02/20 07:25 68 04/02/20 07:23 71 18 40 04/02/20 04:00 Mechanical Ventilator 04/02/20 04:00 98.9 70 18 151/80 (103) 100 71 04/02/20 04:00 40 04/02/20 04:00 81 04/02/20 03:42 70 22 40 04/02/20 00:00 68 04/02/20 00:00 40 04/02/20 00:00 98.7 69 16 156/85 (108) 99 71 04/02/20 00:00 Mechanical Ventilator 04/01/20 23:21 66 18 40 04/01/20 22:00 55 141/82 04/01/20 20:00 Mechanical Ventilator 04/01/20 20:00 40 04/01/20 20:00 98.5 62 18 146/83 (104) 99 71 04/01/20 20:00 65 04/01/20 19:52 68 24 40 04/01/20 16:00 Mechanical Ventilator 04/01/20 16:00 40 04/01/20 16:00 97.7 71 21 163/77 (105) 96 71 04/01/20 16:00 67 04/01/20 15:34 63 163/77 04/01/20 15:26 63 14 40 Intake and Output 04/01/20 04/02/20 19:00 07:00 Intake Total 70 ml 535 ml Balance 70 ml 535 ml Intake Free Water 150 ml Tube Feeding 70 ml 385 ml # Bowel Movements 3 1 Laboratory Tests 04/01/20 12:49: POC Whole Blood Glucose [Pending] 04/01/20 17:57: POC Whole Blood Glucose 95 04/01/20 23:16: POC Whole Blood Glucose [Pending] 04/02/20 03:17: White Blood Count 7.7, Red Blood Count 3.00L, Hemoglobin 9.1L, Hematocrit 27.2L, Mean Corpuscular Volume 91, Mean Corpuscular Hemoglobin 30.4, Mean Corpuscular Hemoglobin Concent 33.5, Red Cell Distribution Width 13.6, Platelet Count 201, Mean Platelet Volume 6.5, Neutrophils (%) (Auto) 73.3, Lymphocytes (%) (Auto) 20.2, Monocytes (%) (Auto) 5.3, Eosinophils (%) (Auto) 0.1, Basophils (%) (Auto) 1.1, Sodium Level 140, Potassium Level 3.8, Chloride Level 103, Carbon Dioxide Level 29, Anion Gap 8, Blood Urea Nitrogen 108H, Creatinine 2.8H, Estimat Glomerular Filtration Rate 18.1, Glucose Level 88, Calcium Level 8.2L 04/02/20 05:14: POC Whole Blood Glucose [Pending] 04/02/20 11:53: POC Whole Blood Glucose 91 Height (Feet): 5 Height (Inches): 3.00 Weight (Pounds): 128 General Appearance: no apparent distress EENT: normal ENT inspection Neck: supple Cardiovascular: normal rate Respiratory/Chest: decreased breath sounds Abdomen: hypoactive bowel sounds Extremities: non-tender Assessment/Plan Problem List: (1) Hx of CABG ICD Codes: Z95.1 - Presence of aortocoronary bypass graft SNOMED: 801217409, 351818279 (2) History of tracheostomy ICD Codes: Z98.890 - Other specified postprocedural states SNOMED: 378833391, 419263151 (3) PEG (percutaneous endoscopic gastrostomy) status ICD Codes: Z93.1 - Gastrostomy status SNOMED: 609082364, 419167043 (4) Renal failure ICD Codes: N19 - Unspecified kidney failure SNOMED: 78488028, 798677532 (5) Severe anemia ICD Codes: D64.9 - Anemia, unspecified SNOMED: 241811229 Assessment/Plan: s/p EGD gastric ulcer on ppi and carafate fu H&H GTF s/p EGD GT tightened at the bedside repeat labs will fu Inder Mccauley MD Apr 02, 2020 12:09
--- NOTE | 2020-04-02 13:25 | Nephrology Progress Note ---
Assessment/Plan Problem List: (1) Renal failure (ARF), acute on chronic (2) Anemia (3) Hyponatremia (4) Respiratory failure Assessment (1) JAVIER (acute kidney injury) (2) Renal failure (ARF), acute on chronic (3) Feeding by G-tube (4) Tracheostomy in place (5) Electrolyte imbalance, hyponatremia (6) Anemia, severe (7) Respiratory failure, acute and chronic (8) history of elevated lipase, pancreatitis (9) Elevated troponin I (10) Sepsis Plan April 02: Labs reviewed. No need for dialysis today. Continue to monitor renal parameters. April 01: Labs reviewed. Renal parameters stable. No dialysis today. Continue per consultants. March 31: No labs drawn today. Renal parameters stable as of yesterday. Will check lab tomorrow. Dialysis as needed. March 30: Labs reviewed. Low phosphorus addressed. Continue per PMD and consultants. Dialysis as needed. March 29: Dialyzed yesterday. No CHEM panel drawn today. We will continue to monitor renal parameters. Continue per consultants. March 28: Due for dialysis today. Labs reviewed. Stable from renal standpoint of view. March 27: Due for dialysis tomorrow. Labs reviewed. Medication list reviewed. Continue per current management. March 26: Last dialyzed March 24. Labs reviewed. Low phosphorus replaced. Continue to monitor renal parameters. Dialysis as needed. March 25: Dialyzed yesterday. Labs reviewed. Low phosphorus replaced. Continue per current management. Hemoglobin higher. March 24: Labs reviewed. Due for dialysis today. Continue per current management. Hemoglobin lower. Transfusion per host/hostess head. March 23: Labs reviewed. Dialyzed yesterday. Next dialysis tomorrow. Anemia management per host/hostess head. March 22: Labs reviewed. Due for dialysis today. Discussed with RN. Agree with discontinuation of the Norman catheter. Hemoglobin lower. Transfusion per host/hostess head. March 21: Labs reviewed. Will arrange for dialysis tomorrow. Continue per consultants. Will hold phosphorus binders at this time. March 20: Labs reviewed. Patient was dialyzed yesterday. Electrolyte abnormalities corrected. Continue per current management. March 19: Due for dialysis today. Abnormal labs noted. All will be corrected after dialysis. March 18: Labs reviewed. Will dialyze tomorrow. Patient being transfused today. Patient due for abdominal paracentesis. We will keep the Norman in. Continue to monitor renal parameters and dialyze as needed. March 17: No CHEM panel done today. CBC reviewed. Hemoglobin is lowering. Dialyzed yesterday. Will check lab tomorrow. Continue per consultants. March 16: Labs reviewed. Due for dialysis today. Hemoglobin 10.2 today. Continue to monitor renal parameters. March 15: Labs reviewed. Dialyzed March 13. Due for dialysis March 16. Hemoglobin lower. 1 unit of packed RBCs ordered. Per orders. March 14: No labs drawn today. Dialyzed yesterday. Full code. Will check lab tomorrow. Dialysis as needed. March 13: Labs reviewed. Due for dialysis today. Patient remains full code. Continue per current management. March 12: Labs reviewed. Dialyzed yesterday. Due for dialysis tomorrow. Discussed with RN. Patient full code. Continue per current management. March 11: Labs reviewed. Dialyzed this morning. Phosphorus binders dose adjusted. Continue per consultants. Continue to monitor renal parameters. CT: Extensive thoracoabdominal aortic dissection March 10: Labs reviewed. Will order dialysis tomorrow. Phosphorus binders added. Continue per consultants. March 09: No chemistry panel done today. Patient dialyzed yesterday. On dextrose 10% for hypoglycemia. We will check labs tomorrow. Dialysis as needed. March 08: Labs reviewed. Will order dialysis today. Blood sugar low. D10 50 cc an hour started. Continue as is. March 07: Labs reviewed. Dialyzed March 05 and March 06. Continue to monitor renal parameters and hemoglobin. Abnormal electrolytes addressed. IV fluids stopped. Per orders. March 06: Labs reviewed. Dialyzed yesterday. Will reorder dialysis for today. Continue to monitor renal parameters. Hemoglobin 8.4. Patient full code. March 05: Labs reviewed. Patient did not receive dialysis until this morning. Proceed with dialysis. Continue to monitor renal parameters and hemoglobin and hematocrit. March 04: Labs reviewed. Hemoglobin lower. Patient actively bleeding. Was not dialyzed yesterday. Due for GI endoscopy. Continue fluid challenge. Transfusion as needed. Dialysis today. March 03: Labs reviewed. Dialysis ordered. Blood pressure medication all discontinued due to hypotensive state. Albumin bolus given. Continue to monitor renal parameters. Medication list reviewed. Midodrin for low blood pressure ordered Subjective ROS Limited/Unobtainable: Yes Objective Objective Last 24 Hour Vital Signs Date Time Temp Pulse Resp B/P (MAP) Pulse Ox O2 Delivery O2 Flow Rate FiO2 04/02/20 08:26 69 160/72 04/02/20 08:00 40 04/02/20 08:00 Mechanical Ventilator 04/02/20 08:00 98.2 71 16 171/85 (113) 99 71 04/02/20 07:25 68 04/02/20 07:23 71 18 40 04/02/20 04:00 Mechanical Ventilator 04/02/20 04:00 98.9 70 18 151/80 (103) 100 71 04/02/20 04:00 40 04/02/20 04:00 81 04/02/20 03:42 70 22 40 04/02/20 00:00 68 04/02/20 00:00 40 04/02/20 00:00 98.7 69 16 156/85 (108) 99 71 04/02/20 00:00 Mechanical Ventilator 04/01/20 23:21 66 18 40 04/01/20 22:00 55 141/82 04/01/20 20:00 Mechanical Ventilator 04/01/20 20:00 40 04/01/20 20:00 98.5 62 18 146/83 (104) 99 71 04/01/20 20:00 65 04/01/20 19:52 68 24 40 04/01/20 16:00 Mechanical Ventilator 04/01/20 16:00 40 04/01/20 16:00 97.7 71 21 163/77 (105) 96 71 04/01/20 16:00 67 04/01/20 15:34 63 163/77 04/01/20 15:26 63 14 40 Intake and Output 04/01/20 04/02/20 19:00 07:00 Intake Total 70 ml 535 ml Balance 70 ml 535 ml Intake Free Water 150 ml Tube Feeding 70 ml 385 ml # Bowel Movements 3 1 Current Medications Medications (Trade) Dose Ordered Sig/Penny Route PRN Reason Start Time Stop Time Status Last Admin Dose Admin Aspirin (ASA) 81 mg DAILY GT 03/07/20 09:00 04/21/20 08:59 04/01/20 09:00 Carvedilol (Coreg) 12.5 mg EVERY 12 HOURS GT 04/02/20 09:00 05/02/20 08:59 04/02/20 08:26 Chlorhexidine Gluconate (Ling-Hex 2%) 1 applic DAILY@1999 TOPIC 03/03/20 20:00 06/01/20 19:59 04/01/20 20:08 Dextrose (Dextrose 50%) 25 ml Q30M PRN IV Hypoglycemia 03/15/20 07:30 06/13/20 07:29 Dextrose (Dextrose 50%) 50 ml Q30M PRN IV Hypoglycemia 03/15/20 07:30 06/13/20 07:29 Famotidine (Pepcid I.v.) 20 mg Q12HR IVP 03/31/20 21:00 04/30/20 20:59 04/02/20 08:21 Hydralazine HCl (Apresoline) 25 mg Q6H PRN GT For High Blood Pressure 03/02/20 22:00 05/31/20 21:59 Hydrocortisone (Anusol HC) 25 mg Q12HR RECTAL 03/23/20 21:00 06/21/20 08:59 04/02/20 08:23 Hydromorphone HCl (Dilaudid) 0.5 mg Q4H PRN IVP For Pain 04/01/20 11:30 04/02/20 19:29 04/02/20 11:45 Loperamide HCl (Imodium) 2 mg Q6H PRN GT Diarrhea 03/06/20 12:45 04/05/20 12:44 03/06/20 13:01 Metoclopramide HCl (Reglan) 5 mg Q8HR IVP 03/04/20 11:45 05/02/20 11:44 04/02/20 05:19 Midodrine (Pro-Amatine) 10 mg EVERY 8 HOURS GT 03/17/20 22:00 06/01/20 12:59 03/31/20 13:08 Sodium Hypochlorite (Dakin's Quarter Strength) 1 applic DAILY TOPIC 03/04/20 09:00 05/02/20 08:59 04/02/20 08:24 Sucralfate (Carafate) 1 gm EVERY 6 HOURS GT 03/17/20 18:00 06/09/20 08:59 04/02/20 11:45 Tramadol HCl (Ultram) 50 mg Q6H PRN ORAL Moderate Pain (Pain Scale 4-6) 03/26/20 19:30 04/09/20 19:29 04/01/20 18:13 Zinc Oxide (Zinc Oxide) 1 applic Q8HR TOPIC 03/25/20 22:00 06/22/20 17:59 04/02/20 05:19 Laboratory Tests 04/01/20 17:57: POC Whole Blood Glucose 95 04/01/20 23:16: POC Whole Blood Glucose [Pending] 04/02/20 03:17: White Blood Count 7.7, Red Blood Count 3.00L, Hemoglobin 9.1L, Hematocrit 27.2L, Mean Corpuscular Volume 91, Mean Corpuscular Hemoglobin 30.4, Mean Corpuscular Hemoglobin Concent 33.5, Red Cell Distribution Width 13.6, Platelet Count 201, Mean Platelet Volume 6.5, Neutrophils (%) (Auto) 73.3, Lymphocytes (%) (Auto) 20.2, Monocytes (%) (Auto) 5.3, Eosinophils (%) (Auto) 0.1, Basophils (%) (Auto) 1.1, Sodium Level 140, Potassium Level 3.8, Chloride Level 103, Carbon Dioxide Level 29, Anion Gap 8, Blood Urea Nitrogen 108H, Creatinine 2.8H, Estimat Glomerular Filtration Rate 18.1, Glucose Level 88, Calcium Level 8.2L 04/02/20 05:14: POC Whole Blood Glucose [Pending] 04/02/20 11:53: POC Whole Blood Glucose 91 Height (Feet): 5 Height (Inches): 3.00 Weight (Pounds): 128 General Appearance: no apparent distress EENT: other - Trach to vent Cardiovascular: normal rate Respiratory/Chest: decreased breath sounds Abdomen: distended Johnny Huoston MD Apr 02, 2020 13:25
[2020-04-02] MEDS: traMADol 50mg tab ORAL PRN ×2 (15:13→22:31)
[2020-04-02 16:00] VITALS: BP 171/82
--- NOTE | 2020-04-02 16:08 | NUR ---
INSURANCE CLINICALS/REVIEW FAXED TO [facility] T: [phone] F: [phone]
[2020-04-02] MEDS ORDERED: Tubing Blood Filter IV ONE (18:20)
[2020-04-02] MEDS ORDERED: NS 500ML ONE (18:20)
--- NOTE | 2020-04-02 18:23 | General Progress Note ---
Subjective Constitutional: Reports: no symptoms HEENT: Reports: no symptoms Cardiovascular: Reports: no symptoms Respiratory: Reports: no symptoms Gastrointestinal/Abdominal: Reports: no symptoms Genitourinary: Reports: no symptoms Neurologic/Psychiatric: Reports: no symptoms Endocrine: Reports: no symptoms Hematologic/Lymphatic: Reports: no symptoms Allergies: Coded Allergies: No Known Allergies (Unverified , 10/10/17) Objective Last 24 Hour Vital Signs Date Time Temp Pulse Resp B/P (MAP) Pulse Ox O2 Delivery O2 Flow Rate FiO2 04/02/20 16:00 Mechanical Ventilator 04/02/20 16:00 40 04/02/20 15:36 70 04/02/20 15:03 89 24 40 04/02/20 12:00 40 04/02/20 12:00 Mechanical Ventilator 04/02/20 12:00 98.2 65 25 135/78 (97) 100 65 04/02/20 11:32 65 04/02/20 11:08 70 20 40 04/02/20 08:26 69 160/72 04/02/20 08:00 40 04/02/20 08:00 Mechanical Ventilator 04/02/20 08:00 98.2 71 16 171/85 (113) 99 71 04/02/20 07:25 68 04/02/20 07:23 71 18 40 04/02/20 04:00 Mechanical Ventilator 04/02/20 04:00 98.9 70 18 151/80 (103) 100 71 04/02/20 04:00 40 04/02/20 04:00 81 04/02/20 03:42 70 22 40 04/02/20 00:00 68 04/02/20 00:00 40 04/02/20 00:00 98.7 69 16 156/85 (108) 99 71 04/02/20 00:00 Mechanical Ventilator 04/01/20 23:21 66 18 40 04/01/20 22:00 55 141/82 04/01/20 20:00 Mechanical Ventilator 04/01/20 20:00 40 04/01/20 20:00 98.5 62 18 146/83 (104) 99 71 04/01/20 20:00 65 04/01/20 19:52 68 24 40 Intake and Output 04/01/20 04/02/20 19:00 07:00 Intake Total 70 ml 535 ml Balance 70 ml 535 ml Intake Free Water 150 ml Tube Feeding 70 ml 385 ml # Bowel Movements 3 1 Laboratory Tests 04/01/20 23:16: POC Whole Blood Glucose [Pending] 04/02/20 03:17: White Blood Count 7.7, Red Blood Count 3.00L, Hemoglobin 9.1L, Hematocrit 27.2L, Mean Corpuscular Volume 91, Mean Corpuscular Hemoglobin 30.4, Mean Corpuscular Hemoglobin Concent 33.5, Red Cell Distribution Width 13.6, Platelet Count 201, Mean Platelet Volume 6.5, Neutrophils (%) (Auto) 73.3, Lymphocytes (%) (Auto) 20.2, Monocytes (%) (Auto) 5.3, Eosinophils (%) (Auto) 0.1, Basophils (%) (Auto) 1.1, Sodium Level 140, Potassium Level 3.8, Chloride Level 103, Carbon Dioxide Level 29, Anion Gap 8, Blood Urea Nitrogen 108H, Creatinine 2.8H, Estimat G lomerular Filtration Rate 18.1, Glucose Level 88, Calcium Level 8.2L 04/02/20 05:14: POC Whole Blood Glucose [Pending] 04/02/20 11:53: POC Whole Blood Glucose 91 Height (Feet): 5 Height (Inches): 3.00 Weight (Pounds): 128 General Appearance: alert, lethargic EENT: normal ENT inspection Neck: supple Cardiovascular: normal rate, regular rhythm, no gallop/murmur, no JVD Respiratory/Chest: no respiratory distress, no accessory muscle use, decreased breath sounds, rhonchi - left Abdomen: normal bowel sounds, non tender, soft, no organomegaly, no mass Extremities: non-tender Neurologic: alert Skin: warm/dry, other - Eye contact normal attention span no verbal response Assessment/Plan Status Narrative Patient is awake alert afebrile hemodynamically stable she is in depressed mood she does continue to give eye contact but no verbal response was head node of yes or no clinically she appears to be stable in regard to hemodynamic and inf ection she does not have thoracic and abdominal aortic dissecting aortic aneurysm is stable at the time in the facility here proved been now 6 days without dialysis appointment patient will be able to return to nondialysis extended care facility as Lucas Dong,Lucas HATFIELD Apr 02, 2020 18:23
[2020-04-02] MEDS ORDERED: D5 1/2NS 1000ml IV ONE (18:26)
[2020-04-02] MEDS ORDERED: NS 275ml ONE (18:26)
--- NOTE | 2020-04-02 19:15 | NUR ---
NURSE NOTES: RN received report from Louis ZIMMERMAN. Patient currently on mechanical ventilator. Patient vent setting are AC 14 TV 500 PEEP 5 and FIO2 40%. Patient bp elevated. Patient appears to be in pain. RN will review orders and give pain meds prn. Patient repositioned. RN will continue to monitor.
--- NOTE | 2020-04-02 19:34 | NUR ---
NURSE HAND-OFF REPORT: Important Events on Shift: stable Patient Status: Diet: Pending Orders: Pending Results/Labs: Pending MD notification: Latest Vital Signs: Temperature 98.1 , Pulse 75 , B/P 171 /82 , Respiratory Rate 26 , O2 SAT 90 , Mechanical Ventilator, O2 Flow Rate . Vital Sign Comment: EKG Rhythm: Sinus Rhythm Rhythm change?: N Notified?: N -Dr Екатерина HATFIELD Response: No New Orders Received Latest [place] Fall Score: 60 Fall Risk: High Risk Safety Measures: Call light Within Reach, Bed Alarm Zone 2, Side Rails Side Rails x3, Bed position Low and Locked. Fall Precautions: Yellow Socks Report given to ERASMO Terrell.
[2020-04-02 20:00] VITALS: BP 160/86
[2020-04-02] MEDS: Dyna-Hex 2% Top Sol 2oz TOPIC SCH (20:09)
[2020-04-03] VITALS: BP 148/97
--- NOTE | 2020-04-03 02:20 | NUR ---
NURSE NOTES: patient in bed. Patient vitals stable. patient grimacing and appears to be in pain. she is nonverbal. Patient bathed and given IVP pain meds to help alleviate some discomfort. RN changed patients dressing on coccyx. Patient draining copious amounts of serosaingonous bloody drainage. Pad. Patient cleaned. Repositioned and oral care completed. RN will continue to monitor.
--- NOTE | 2020-04-03 02:42 | Cardiology Progress Note ---
Subjective DATE OF SERVICE: Apr 02, 2020 Heart rates remain in stable range; carvedilol therapy tolerated without significant bradycardia, in setting of aortic dissection. BP parameters continue trending upward. CT scan revealed extensive thoracoabd aortic dissection- Elida Type B Dialysis per renal Pt is s/p paracentesis (50cc) Objective Last 24 Hour Vital Signs Date Time Temp Pulse Resp B/P (MAP) Pulse Ox O2 Delivery O2 Flow Rate FiO2 04/03/20 00:00 Mechanical Ventilator 04/03/20 00:00 99.1 74 17 148/97 (114) 74 04/02/20 23:01 97.8 04/02/20 23:00 75 22 40 04/02/20 21:26 97.7 04/02/20 20:10 73 161/81 04/02/20 20:00 Mechanical Ventilator 04/02/20 20:00 77 04/02/20 20:00 97.7 74 16 160/86 (110) 98 74 04/02/20 20:00 40 04/02/20 19:15 75 26 40 04/02/20 16:00 Mechanical Ventilator 04/02/20 16:00 98.1 68 21 171/82 (111) 90 68 04/02/20 16:00 40 04/02/20 15:36 70 04/02/20 15:03 89 24 40 04/02/20 12:00 40 04/02/20 12:00 Mechanical Ventilator 04/02/20 12:00 98.2 65 25 135/78 (97) 100 65 04/02/20 11:32 65 04/02/20 11:08 70 20 40 04/02/20 08:26 69 160/72 04/02/20 08:00 40 04/02/20 08:00 Mechanical Ventilator 04/02/20 08:00 98.2 71 16 171/85 (113) 99 71 04/02/20 07:25 68 04/02/20 07:23 71 18 40 04/02/20 04:00 Mechanical Ventilator 04/02/20 04:00 98.9 70 18 151/80 (103) 100 71 04/02/20 04:00 40 04/02/20 04:00 81 04/02/20 03:42 70 22 40 HEENT: Thin Trach secretions RHYTHM: NSR, SB LUNGS: bilateral rhonchi - few, trach site clean CARDIAC: normal rate, regular rhythm, normal S1 and S2 ABDOMEN: normal bowel sounds, non tender, soft, G-Tube intact EXTREMITIES: normal range of motion, non-tender, normal inspection Laboratory Tests Test 04/02/20 03:17 04/02/20 05:14 04/02/20 11:53 White Blood Count 7.7 K/UL (4.8-10.8) Red Blood Count 3.00 M/UL (4.20-5.40) L Hemoglobin 9.1 G/DL (12.0-16.0) L Hematocrit 27.2 % (37.0-47.0) L Mean Corpuscular Volume 91 FL (80-99) Mean Corpuscular Hemoglobin 30.4 PG (27.0-31.0) Mean Corpuscular Hemoglobin Concent 33.5 G/DL (32.0-36.0) Red Cell Distribution Width 13.6 % (11.6-14.8) Platelet Count 201 K/UL (150-450) Mean Platelet Volume 6.5 FL (6.5-10.1) Neutrophils (%) (Auto) 73.3 % (45.0-75.0) Lymphocytes (%) (Auto) 20.2 % (20.0-45.0) Monocytes (%) (Auto) 5.3 % (1.0-10.0) Eosinophils (%) (Auto) 0.1 % (0.0-3.0) Basophils (%) (Auto) 1.1 % (0.0-2.0) Sodium Level 140 MMOL/L (136-145) Potassium Level 3.8 MMOL/L (3.5-5.1) Chloride Level 103 MMOL/L (98-107) Carbon Dioxide Level 29 MMOL/L (21-32) Anion Gap 8 mmol/L (5-15) Blood Urea Nitrogen 108 mg/dL (7-18) H Creatinine 2.8 MG/DL (0.55-1.30) H Estimat Glomerular Filtration Rate 18.1 mL/min (>60) Glucose Level 88 MG/DL (74-106) Calcium Level 8.2 MG/DL (8.5-10.1) L POC Whole Blood Glucose Pending 91 MG/DL (74-106) Assessment/Plan Assessment/Plan Aortic dissections - Elida B Sepsis with recovered shock Sinus node disease with bradycardia Hx pacemaker explant Ischemic cardiomyopathy - hx CABG? Paroxysmal Atrial Fib Respiratory failure with trach Hx thoracic aortic aneurysm repair ESRD Anemia HypoPO4 Hypertension/HHD with rising BP range Will maintain current dose of beta flori (with hold parameter). 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
[2020-04-03] MEDS: HYDROmorphone 1mg/ml Carpuject IVP PRN ×2 (03:03→20:36)
[2020-04-03 04:00] VITALS: BP 144/86
[2020-04-03 05:29] LABS: BASOPHILS % (AUTO) 0.9 % (0.0-2.0); EOSINOPHILS % (AUTO) 0.1 % (0.0-3.0); HEMATOCRIT 24.9 % (37.0-47.0); HEMOGLOBIN 8.2 G/DL (12.0-16.0); LYMPHOCYTES % (AUTO) 22.2 % (20.0-45.0); MEAN CORPUSCULAR VOLUME 91 FL (80-99); NEUTROPHILS % (AUTO) 71.9 % (45.0-75.0); PLATELET COUNT 201 K/UL (150-450); RED BLOOD COUNT 2.74 M/UL (4.20-5.40); RED CELL DISTRIBUTION WIDTH 13.6 % (11.6-14.8); WHITE BLOOD COUNT 7.2 K/UL (4.8-10.8)
[2020-04-03] MEDS: Sucralfate 1gm tab GT SCH ×5 (05:52→23:33)
[2020-04-03] MEDS: Zinc Oxide Oint 2oz TOPIC SCH ×3 (05:52→21:42)
[2020-04-03] MEDS: Metoclopramide 10mg/2ml Inj IVP SCH ×3 (05:52→21:42)
[2020-04-03 06:01] LABS: ALANINE AMINOTRANSFERASE 14 U/L (12-78); ALBUMIN 1.2 G/DL (3.4-5.0); ALBUMIN/GLOBULIN RATIO 0.3 (1.0-2.7); ALKALINE PHOSPHATASE 133 U/L (46-116); ANION GAP 9 mmol/L (5-15); ASPARTATE AMINO TRANSFERASE 33 U/L (15-37); BILIRUBIN,TOTAL 0.6 MG/DL (0.2-1.0); BLOOD UREA NITROGEN 116 mg/dL (7-18); CALCIUM 8.1 MG/DL (8.5-10.1); CARBON DIOXIDE 28 MMOL/L (21-32); CHLORIDE 102 MMOL/L (98-107); PHOSPHORUS 3.4 MG/DL (2.5-4.9); POTASSIUM 3.5 MMOL/L (3.5-5.1); SODIUM 139 MMOL/L (136-145)
--- NOTE | 2020-04-03 07:05 | NUR ---
RESPIRATORY NOTE: PT received stable on mechanical ventilation with current settings: AC/VC 14,500,40%,+5. Airway is midline, secure and patent. Vent circuit is secure and out of the way. Alarms are on and audible. No s/s of respiratory distress noted at this time. Will continue to closely monitor.
--- NOTE | 2020-04-03 07:10 | NUR ---
NURSE NOTES: Report received from Nidhi Araujo RN.Pt awake,alert,noted no resp distress,with trach tube to mech Vent,ordered vent settings tolerated,no signs of discomfort or pain,,cries when touched or moved,S- R on the moitor,GTF Nepro at 35 ml/hr,gt site red and excoriated,Norman cath draining yellow urine,skin warm and dry with IV SL to LT Hand intact ,SR up x2 HOB elevated bed lock in lowest position will continue with plans of care.
--- NOTE | 2020-04-03 07:26 | NUR ---
RD ASSESSMENT & RECOMMENDATIONS SEE CARE ACTIVITY FOR COMPLETE ASSESSMENT DAILY ESTIMATED NEEDS: Needs based on Critical care, wound, renal dysfunction 59.5 kg 27-22 kcals/kg 1068-9911 total kcals W/ HD (1.5-2.0) g protein/kg 89-119 g total protein Fluid per MD NUTRITION DIAGNOSIS: * Swallowing difficulty R/T dysphagia, respiratory status as evidenced by vent dep via trach, GT Dep. * Increase kcal and pro needs r/t wound healing, renal dysfunction as evidenced by h/o stage 4 sacral wound, and HD. CURRENT TF: Nepro @ 35ml/hr x 24 hrs ENTERAL NUTRITION RECOMMENDATIONS: Nepro @40ml/hr x 24 hrs + Prosource 1pkt BID to provide 960ml, 1728kcal, 78g+22g prot, 779ml free water * INCREASE goal rate to 40ml/hr. * Add Prosource 1pkt BID to better meet increased protein needs (additional 11g prot/each) * Water flush per MD/ HOB over 30 degrees ADDITIONAL RECOMMENDATIONS: * Calibrated bed scale, wts fluctuatinkg-> 68kg->76.5kg now * Monitor for HD continuity * WC eval-> w/ TF orders add FRANKLIN in 4oz H2O BID via GT Vit C per nephrology, add Nephrovite 1 tab daily. * Monitor BGs closely for hypoglycemia On Bedside BG checks * Monitor lytes, replete as needed
[2020-04-03 08:00] VITALS: BP 157/72
[2020-04-03] MEDS: Aspirin Baby 81mg GT SCH (08:21)
[2020-04-03] MEDS: Hydrocortisone 25mg supp RECTAL SCH ×2 (08:21→20:35)
[2020-04-03] MEDS: Dakin's 0.125% Soln (Quarter Strength) 16oz TOPIC SCH (08:22)
[2020-04-03] MEDS: Carvedilol 12.5mg tab GT SCH ×2 (08:22→20:35)
--- NOTE | 2020-04-03 08:36 | NUR ---
CASE MANAGEMENT:REVIEW 04/03/20 SI: SEPSIS. BACTEREMIA. AORTIC DISSECTION ANEMIA...S/P 15 UNITS PRBC'S. TRACH/VENT/GTUBE. 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
--- NOTE | 2020-04-03 09:07 | Hematology/Onc Progress Note ---
Assessment/Plan Assessment/Plan # Leukocytosis, now with likely bacteremia, as per ID care --> Cxr: : Large left abiola consolidation/effusion --> wbc 30-->40-->27->30->29-->35->32-->28-->21->10.2-->6.6 --> ABX angelo/vanc-->tobra/edson/vanc-->dapto/ceftazadine->off abx --> smear reviewed --> ID recs are noted # Anemia of chronic disease due to underlying chronic medical issues, multifactorial --> Anemia workup has been reviewed, cw acd --> No evidence of hemolysis is noted, peripheral smear has been reviewed. --> Hgb goal >7. Transfuse prn. --> Epogen required in prior --> Medications have been reviewed --> low threshold for gi evaluation in case has occult + --> hgb 1.9-->5-->7.1-->8.8-->8.1->7.5-> 8.2-->6. 8-->9.2-->8.4->7.7-->7.1-->8.8->8.7-->8.2 --> 1 unit prbc1/17, 2 units 01/15, 03/02, 03/18, 03/24 --> gi eval as needed # Elevated tumor markers, cea and ca 19.9 --> reviewed prior 01/27/20 cat scan a/p --> no masses noted, hold off further extensive w/u # Thrombocytopenia likely reactive v medication induced --> plt 200-->129->91-->86->100->78-->86-->87-->125->135 --> transfuse as needed --> r/o dic, has been ruled out --> anticoag as needed # Coagulopathy with inr 1.5 --> consider vit k/ffp as needed preprocedure --> labs noted # Aortic dissection as seen on Ct ==> when stable, consider transfer hloc # JAVIER initially >2 --> on ivfs --> per renal # Elevated d-dimer, likely infection related --> venous duplex prior neg --> in prior neg # Dysphagia s/p peg --> as per gi # Thoracic aortic dissection --> s/p repair early 2017 # Chronic Resp failure -> s/p trach/vent # Psychiatric history on ativan/haldol # [place] resident # Dvt ppx --> scds The timing of this note does not necessarily reflect the time of the patient was seen. Greatly appreciate consultation. Subjective HEENT: Denies: no symptoms, eye pain, blurred vision, tearing, double vision, ear pain, ear discharge, nose pain, nose congestion, throat pain, throat swelling, mouth pain, mouth swelling, other Cardiovascular: Denies: no symptoms, chest pain, edema, irregular heart rate, lightheadedness, palpitations, syncope, other Respiratory: Denies: no symptoms, cough, shortness of breath, SOB with excertion, SOB at rest, sputum, wheezing, other Gastrointestinal/Abdominal: Denies: no symptoms, abdomen distended, abdominal pain, black stools, tarry stools, blood in stool, constipated, diarrhea, difficulty swallowing, nausea, poor appetite, poor fluid intake, rectal bleeding, vomiting, other Genitourinary: Denies: no symptoms, burning, discharge, frequency, flank pain, hematuria, incontinence, pain, urgency, other Neurologic/Psychiatric: Denies: no symptoms, anxiety, depressed, emotional problems, headache, numbness, paresthesia, pre-existing deficit, seizure, tingling, tremors, weakness, other Endocrine: Denies: no symptoms, excessive sweating, flushing, intolerance to cold, intolerance to heat, increased hunger, increased thirst, increased urine, unexplained weight gain, unexplained weight loss, other Allergies: Coded Allergies: No Known Allergies (Unverified , 10/10/17) Subjective 03/04 for 1 unit transfusion this am as hgb remains low, wbc better 03/05 egd was done did show large nonbleeding gastric ulcer, high tumor markers 03/06 nv, with davis overnight, bp remains stable, with occult + stool, roman Rn 03/09 nv, remains stable, on vanc/tobra/edson, meds reviewed, no bleeding 03/10 nv, on vent, no bleeding, receiving abx, no night sweats 03/11 nv, roman surgeon and pcp, with aortic dissection to transfer [facility] when stable 03/12 nv, labs reviewed, wbc 21, hgb 7.5, otherwise is comfortable 03/13 nv, labs noted, no bleeding, wbc 13, hgb improved, meds reviewed 03/15 nv, meds reviewed, labs noted, no bleeding, on vent 03/16 nv/tv, peg, meds noted, hgb remains stable, improved to 10 2/ s/p egd, with gastric ulceration noted, hgb stable 03/18 labs noted, hgb 6.8, to get 1 unit prbc, meds reviewed 03/19 hgb 9.2, plt 78, no hemoptysis, is comfortable 03/20 labs reviewed, meds noted, no bleeding, roman rn 03/22 wound treatment, vent, with gtube, labs reviewed, roman rn 03/23 labs reviewed, meds noted, no bleeding, with gt 03/24 large bm overnight that was bloody, hgb 7.1, roman rn 03/25 labs pending this am, comfortable, nsr, meds noted 03/26 nv, vent, with gt, labs reviewed, hgb 8.8 03/27 nv, vent, labs reviewed, with gt, hgb stable 03/29 nv, vent, labs pending, meds reviewed, no bleeding 03/30 nv, t/v, with gt feeds, labs reviewed, meds noted 03/31 nv, t/v, oral secretions were suctioned, meds reviewed 04/01 nv, t/v, labs are reviewed, meds noted, hgb 7.4 04/02 gt leaking, facial grimacing, labs noted, no bleeding, roman rn 04/03 nv, labs noted, no bleeding, roman rn, h/h stable Objective Objective Current Medications Medications (Trade) Dose Ordered Sig/Penny Route PRN Reason Start Time Stop Time Status Last Admin Dose Admin Aspirin (ASA) 81 mg DAILY GT 03/07/20 09:00 04/21/20 08:59 04/03/20 08:21 Carvedilol (Coreg) 12.5 mg EVERY 12 HOURS GT 04/02/20 09:00 05/02/20 08:59 04/03/20 08:22 Chlorhexidine Gluconate (Ling-Hex 2%) 1 applic DAILY@1999 TOPIC 03/03/20 20:00 06/01/20 19:59 04/02/20 20:09 Dextrose (Dextrose 50%) 25 ml Q30M PRN IV Hypoglycemia 03/15/20 07:30 06/13/20 07:29 Dextrose (Dextrose 50%) 50 ml Q30M PRN IV Hypoglycemia 03/15/20 07:30 06/13/20 07:29 Famotidine (Pepcid I.v.) 20 mg Q12HR IVP 03/31/20 21:00 04/30/20 20:59 04/03/20 08:22 Hydralazine HCl (Apresoline) 25 mg Q6H PRN GT For High Blood Pressure 03/02/20 22:00 05/31/20 21:59 Hydrocortisone (Anusol HC) 25 mg Q12HR RECTAL 03/23/20 21:00 06/21/20 08:59 04/03/20 08:21 Hydromorphone HCl (Dilaudid) 0.5 mg Q4H PRN IVP For Pain 04/02/20 20:30 04/09/20 20:29 04/03/20 03:03 Loperamide HCl (Imodium) 2 mg Q6H PRN GT Diarrhea 03/06/20 12:45 04/05/20 12:44 03/06/20 13:01 Metoclopramide HCl (Reglan) 5 mg Q8HR IVP 03/04/20 11:45 05/02/20 11:44 04/03/20 05:52 Sodium Hypochlorite (Dakin's Quarter Strength) 1 applic DAILY TOPIC 03/04/20 09:00 05/02/20 08:59 04/03/20 08:22 Sucralfate (Carafate) 1 gm EVERY 6 HOURS GT 03/17/20 18:00 06/09/20 08:59 04/03/20 05:52 Tramadol HCl (Ultram) 50 mg Q6H PRN ORAL Moderate Pain (Pain Scale 4-6) 03/26/20 19:30 04/09/20 19:29 04/02/20 22:31 Zinc Oxide (Zinc Oxide) 1 applic Q8HR TOPIC 03/25/20 22:00 06/22/20 17:59 04/03/20 05:52 Last 24 Hour Vital Signs Date Time Temp Pulse Resp B/P (MAP) Pulse Ox O2 Delivery O2 Flow Rate FiO2 04/03/20 08:22 78 157/72 04/03/20 04:00 98.2 74 15 144/86 (105) 94 74 04/03/20 04:00 71 04/03/20 04:00 40 04/03/20 04:00 Mechanical Ventilator 04/03/20 03:33 99.4 04/03/20 03:00 73 14 40 04/03/20 00:00 76 04/03/20 00:00 Mechanical Ventilator 04/03/20 00:00 99.1 74 17 148/97 (114) 74 04/02/20 23:01 97.8 04/02/20 23:00 75 22 40 04/02/20 21:26 97.7 04/02/20 20:10 73 161/81 04/02/20 20:00 Mechanical Ventilator 04/02/20 20:00 77 04/02/20 20:00 97.7 74 16 160/86 (110) 98 74 04/02/20 20:00 40 04/02/20 19:15 75 26 40 04/02/20 16:00 Mechanical Ventilator 04/02/20 16:00 98.1 68 21 171/82 (111) 90 68 04/02/20 16:00 40 04/02/20 15:36 70 04/02/20 15:03 89 24 40 04/02/20 12:00 40 04/02/20 12:00 Mechanical Ventilator 04/02/20 12:00 98.2 65 25 135/78 (97) 100 65 04/02/20 11:32 65 04/02/20 11:08 70 20 40 04/02/20 08:26 69 160/72 04/02/20 08:00 40 04/02/20 08:00 Mechanical Ventilator 04/02/20 08:00 98.2 71 16 171/85 (113) 99 71 04/02/20 07:25 68 04/02/20 07:23 71 18 40 04/02/20 04:00 Mechanical Ventilator 04/02/20 04:00 98.9 70 18 151/80 (103) 100 71 04/02/20 04:00 40 04/02/20 04:00 81 04/02/20 03:42 70 22 40 04/02/20 00:00 68 04/02/20 00:00 40 04/02/20 00:00 98.7 69 16 156/85 (108) 99 71 04/02/20 00:00 Mechanical Ventilator 04/01/20 23:21 66 18 40 04/01/20 22:00 55 141/82 04/01/20 20:00 Mechanical Ventilator 04/01/20 20:00 40 04/01/20 20:00 98.5 62 18 146/83 (104) 99 71 04/01/20 20:00 65 04/01/20 19:52 68 24 40 04/01/20 16:00 Mechanical Ventilator 04/01/20 16:00 40 04/01/20 16:00 97.7 71 21 163/77 (105) 96 71 04/01/20 16:00 67 04/01/20 15:34 63 163/77 04/01/20 15:26 63 14 40 04/01/20 12:00 97.9 64 14 143/63 (89) 100 64 04/01/20 12:00 40 04/01/20 12:00 Mechanical Ventilator 04/01/20 11:52 64 04/01/20 10:45 63 22 40 Intake and Output 04/02/20 04/03/20 19:00 07:00 Intake Total 640 ml 585 ml Balance 640 ml 585 ml Intake Free Water 220 ml Tube Feeding 420 ml 385 ml Other 200 ml Labs Test 03/31/20 23:31 04/01/20 04:50 04/01/20 04:59 04/01/20 12:49 White Blood Count 6.6 K/UL (4.8-10.8) Red Blood Count 2.48 M/UL (4.20-5.40) Hemoglobin 7.4 G/DL (12.0-16.0) Hematocrit 22.6 % (37.0-47.0) Mean Corpuscular Volume 91 FL (80-99) Mean Corpuscular Hemoglobin 30.0 PG (27.0-31.0) Mean Corpuscular Hemoglobin Concent 33.0 G/DL (32.0-36.0) Red Cell Distribution Width 14.0 % (11.6-14.8) Platelet Count 180 K/UL (150-450) Mean Platelet Volume 6.3 FL (6.5-10.1) Neutrophils (%) (Auto) % (45.0-75.0) Lymphocytes (%) (Auto) % (20.0-45.0) Monocytes (%) (Auto) % (1.0-10.0) Eosinophils (%) (Auto) % (0.0-3.0) Basophils (%) (Auto) % (0.0-2.0) Differential Total Cells Counted 100 Neutrophils % (Manual) 83 % (45-75) Lymphocytes % (Manual) 15 % (20-45) Monocytes % (Manual) 2 % (1-10) Eosinophils % (Manual) 0 % (0-3) Basophils % (Manual) 0 % (0-2) Band Neutrophils 0 % (0-8) Platelet Estimate Adequate Platelet Morphology Normal Hypochromasia 1+ Sodium Level 138 MMOL/L (136-145) Potassium Level 3.7 MMOL/L (3.5-5.1) Chloride Level 102 MMOL/L (98-107) Carbon Dioxide Level 29 MMOL/L (21-32) Anion Gap 7 mmol/L (5-15) Blood Urea Nitrogen 96 mg/dL (7-18) Creatinine 2.7 MG/DL (0.55-1.30) Estimat Glomerular Filtration Rate 18.9 mL/min (>60) Glucose Level 105 MG/DL (74-106) Calcium Level 7.8 MG/DL (8.5-10.1) Phosphorus Level 2.8 MG/DL (2.5-4.9) Magnesium Level 2.3 MG/DL (1.8-2.4) Total Bilirubin 0.6 MG/DL (0.2-1.0) Aspartate Amino Transf (AST/SGOT) 29 U/L (15-37) Alanine Aminotransferase (ALT/SGPT) 11 U/L (12-78) Alkaline Phosphatase 127 U/L (46-116) C-Reactive Protein, Quantitative 12.6 mg/dL (0.00-0.90) Pro-B-Type Natriuretic Peptide > 89005 pg/mL (0-125) Total Protein 5.2 G/DL (6.4-8.2) Albumin 1.1 G/DL (3.4-5.0) Globulin 4.1 g/dL Albumin/Globulin Ratio 0.3 (1.0-2.7) Test 04/01/20 17:57 04/01/20 23:16 04/02/20 03:17 04/02/20 05:14 POC Whole Blood Glucose 95 MG/DL (74-106) White Blood Count 7.7 K/UL (4.8-10.8) Red Blood Count 3.00 M/UL (4.20-5.40) Hemoglobin 9.1 G/DL (12.0-16.0) Hematocrit 27.2 % (37.0-47.0) Mean Corpuscular Volume 91 FL (80-99) Mean Corpuscular Hemoglobin 30.4 PG (27.0-31.0) Mean Corpuscular Hemoglobin Concent 33.5 G/DL (32.0-36.0) Red Cell Distribution Width 13.6 % (11.6-14.8) Platelet Count 201 K/UL (150-450) Mean Platelet Volume 6.5 FL (6.5-10.1) Neutrophils (%) (Auto) 73.3 % (45.0-75.0) Lymphocytes (%) (Auto) 20.2 % (20.0-45.0) Monocytes (%) (Auto) 5.3 % (1.0-10.0) Eosinophils (%) (Auto) 0.1 % (0.0-3.0) Basophils (%) (Auto) 1.1 % (0.0-2.0) Sodium Level 140 MMOL/L (136-145) Potassium Level 3.8 MMOL/L (3.5-5.1) Chloride Level 103 MMOL/L (98-107) Carbon Dioxide Level 29 MMOL/L (21-32) Anion Gap 8 mmol/L (5-15) Blood Urea Nitrogen 108 mg/dL (7-18) Creatinine 2.8 MG/DL (0.55-1.30) Estimat Glomerular Filtration Rate 18.1 mL/min (>60) Glucose Level 88 MG/DL (74-106) Calcium Level 8.2 MG/DL (8.5-10.1) Test 04/02/20 11:53 04/03/20 04:50 04/03/20 06:19 POC Whole Blood Glucose 91 MG/DL (74-106) White Blood Count 7.2 K/UL (4.8-10.8) Red Blood Count 2.74 M/UL (4.20-5.40) Hemoglobin 8.2 G/DL (12.0-16.0) Hematocrit 24.9 % (37.0-47.0) Mean Corpuscular Volume 91 FL (80-99) Mean Corpuscular Hemoglobin 29.8 PG (27.0-31.0) Mean Corpuscular Hemoglobin Concent 32.8 G/DL (32.0-36.0) Red Cell Distribution Width 13.6 % (11.6-14.8) Platelet Count 201 K/UL (150-450) Mean Platelet Volume 6.0 FL (6.5-10.1) Neutrophils (%) (Auto) 71.9 % (45.0-75.0) Lymphocytes (%) (Auto) 22.2 % (20.0-45.0) Monocytes (%) (Auto) 5.0 % (1.0-10.0) Eosinophils (%) (Auto) 0.1 % (0.0-3.0) Basophils (%) (Auto) 0.9 % (0.0-2.0) Sodium Level 139 MMOL/L (136-145) Potassium Level 3.5 MMOL/L (3.5-5.1) Chloride Level 102 MMOL/L (98-107) Carbon Dioxide Level 28 MMOL/L (21-32) Anion Gap 9 mmol/L (5-15) Blood Urea Nitrogen 116 mg/dL (7-18) Creatinine 3.0 MG/DL (0.55-1.30) Estimat Glomerular Filtration Rate 16.7 mL/min (>60) Glucose Level 93 MG/DL (74-106) Uric Acid 5.7 MG/DL (2.6-7.2) Calcium Level 8.1 MG/DL (8.5-10.1) Phosphorus Level 3.4 MG/DL (2.5-4.9) Magnesium Level 2.5 MG/DL (1.8-2.4) Total Bilirubin 0.6 MG/DL (0.2-1.0) Aspartate Amino Transf (AST/SGOT) 33 U/L (15-37) Alanine Aminotransferase (ALT/SGPT) 14 U/L (12-78) Alkaline Phosphatase 133 U/L (46-116) C-Reactive Protein, Quantitative 12.5 mg/dL (0.00-0.90) Pro-B-Type Natriuretic Peptide > 51895 pg/mL (0-125) Total Protein 5.4 G/DL (6.4-8.2) Albumin 1.2 G/DL (3.4-5.0) Globulin 4.2 g/dL Albumin/Globulin Ratio 0.3 (1.0-2.7) Height (Feet): 5 Height (Inches): 3.00 Weight (Pounds): 128 Objective Physical Exam: Vitals: reviewed General: NAD HEENT: nc, at Neck: supple ++trach/vent Chest: clear breath sounds bilaterally Cardiovascular: RRR, no s3, s4 Abdomen: soft, nontender, nd +gtube Extremities: no cce, normal range of motion Neuro: alert Evan Muhammad MD Apr 03, 2020 09:07
--- NOTE | 2020-04-03 10:00 | NUR ---
NURSE NOTES: Pt incontinent of large liquid brown stools,bed bath given, kept dry and clean, pulled up ,turned and repositioned for comfort.
--- NOTE | 2020-04-03 10:02 | Infectious Diseases Prog Note ---
Assessment/Plan 49yo F with: MDR Kleb pna bacteremia AMS Anemia to 1.9 on admission 03/02 Leukocytosis to 40, improving GPC bacteremia UTI Pneumonia c/b mod-large R pleural effusion and small L pleural effusion - compressive atelectasis Hypotension 03/02 BCx 1/2 +Staph epi, 12 +Staph haemolyticus (m/l skin colonizers) UA+, UCx >100k P.stuartii (S-angelo) & CRE P.mirablis (R-polyB/colistin, S- tobramycin, per [facility] is "intrinsically resistant to Avycaz/Zerbaxa" not clear why to me and they are unable to elaborate more) COVID rapid neg, PCR neg CXR: Tracheostomy again demonstrated. Interim placement of a right jugular tunneled dialysis catheter. There is infiltrate and volume loss in the left lung, particularly in the perihilar region, suprahilar region, and base. Consolidation at the lung base is similar. The perihilar and suprahilar region consolidation is new. The right lung pleural space are clear. C.dif neg 03/03 BCx NTD 03/06 BCx 2/2 +MDR Kleb pna (arnett-R, including R-polyB, colistin), 02/14 +E.faecium VRE (R-amp, S-linezolid) 03/08 BCx NTD 03/09 CT CAP: Very limited exam, as described, due to massive anasarca. This could limit visualization of the discrete fluid collection such as an abscess. Extensive thoracoabdominal aortic dissection, as described above. Current flap begins just distal to the left subclavian artery origin; per report, there is history of surgical repair so there may have been surgical repair of the ascending thoracic aorta. Bilateral pleural effusions, slightly smaller than on earlier exams. Extensive atelectasis as a result. Extensive pulmonary par enchymal disease as detailed above. This may reflect pneumonia or pulmonary edema or both. Evidence of pulmonary arterial hypertension, with dilatation of the pulmonary artery. Considerable ascites fluid. 03/11 Chest US: Small right, trace left pleural effusions, insufficient for safe thoracentesis AF Sepsis Leukocytosis Hypoxia on vent Pneumonia c/b L pleural effusion (recurrent, prior determined to be transudative) - s/p thora 01/21, 1050cc removed Volume overload, BNP >35,0000, likely 2/2 progressive CKD --> ESRD ?Pancreatitis, Lipase >2000 Acute anemia to 5s CONS bacteremia, ?contaminant Aflutter w/ RVR 01/13 BCx 2/2 +S. epi COVID PCR neg Flu neg CXR: Large left pleural effusion. Bilateral interstitial and airspace infiltrates versus edema MRSA nares neg 01/16 BCx NTD 01/17 BCx /2 +Staph auricularis (skin colonizer) 01/18 Resp cx +MDR CRE PsA (S-gent, I-colistin, R-polyB) (Intermediate to Zerbaxa, Resistant to Avycaz) 01/18 C.dif neg 01/18 CXR: Similar opacification of the left hemithorax likely representing combination of pleural effusion with atelectasis versus pneumonia/edema. Decreased but persistent hazy opacity throughout the right lung may represent edema versus infectious/inflammatory process. 01/20 BCx NTD 01/21 L thora 1050 cc removed, cx NTD 01/25 Wound cx from Gtube site +CRE Kleb pna (arnett-R) and MDR PsA (colonizers) 01/26 CT A/P: Limited exam, due to severe diffuse anasarca. Ascites. Bilateral pleural effusions. Basilar pulmonary atelectatic changes and consolidation. Gastrostomy. Atrophic left kidney with a nephroureteral stents again demonstrated. Possible retrococcygeal decubitus changes. Correlate with clinical findings, consider MRI if there is concern for sacral osteomyelitis. Right hip intertrochanteric fracture, also previously demonstrated. Left femoral dialysis catheter. Nonspecific right lobe liver lesion is unchanged, not well- demonstrated. ctasia bordering on aneurysmal dilatation and possible chronic dissection of the distal thoracic aorta, also previously described. JAVIER on CKD On previous admission Sep-Oct 2019 required HD for short period Going to start HD this admission again R/o COVID 01/14 COVID PCR neg 12/29 neg at [facility] per report H/o UTI 10/15 u/a wbc 30-40, nit neg, leuk +3; ucx ESBL P. mirablis, ESBL M. morganii //20 u/a wbc tnct, nit neg, leuk +3; ucx >100k MDR P. stuarti (S Ceftriaxone, Meropenem) 8/25 u/a wbc tnct, nit neg, leuk ; ucx >100k VRE 10/15/19 u/a wbc tnct; ucx >100k ESBL P. stuarti (S ertapenem, aztreonam) H/o transudative pleural effusion 11/28 Sp Thora (w: 169, PMN: 2%, L: 49% , LDH: 57, prot 2.5); cx Neg H/o PNA 10/15/19 Resp cx ESBL P. mirabilis, MDR P.a. (S only to Gent) 09/22 Resp cx + MDR PsA (S-gent; I-colistin; R-levofloxacin, Zosyn, angelo) 09/16/19 Sp cx ESBL P. mirablis H/o PPM site (pocket) infection and pocket abscess 2ry to S. epi-11/2018, sp >6weeks IV vancomycin 11/27 SP ABBIE: no evidence for vegetation on any of the valves 11/26/18 SP PPM removal: OR findings:The fibrous capsule enclosing the generator was then opened and there was a [id number] amount of yellowish fluid drainage. The generator was then removed.Atrial and ventricular leads were detached. The necrotic tissue of the pocket was then removed and the pocket was flushed with an antibiotic solution. Capsule, wound tissue and lead tip cx: Neg 2d echo: no vegetation seen US chest: 4.6 x 3.4 x 0.9 cm hypoechoic/anechoic area overlying left chest pacemaker power pack. This could represent either a discrete fluid collection or a focal area of very edematous tissue. Infected fluid pocket also possible. 11/18 Bcx 3/4 S. epi; 11/20 Bcx neg; 11/24 Bcx Neg; 11/27 Bcx Neg CAD s/p CABG GERD/gastritis Afib HTN Dysphagia sp GT Aortic dissection s/p repair 2017 S/p PPM Parkinson's Disease Schizophrenia Anxiety COPD Chronic resp failure s/p trach Hx of tracheal bleeding [place] resident ([facility]) VRE and MRSA colonized Plan: Cont to monitor off abx 03/21 SP daptomycin #12, Avycaz #16 for VRE and MDR Kleb bacteremia 03/16 SP tobramycin IV #10 for resistant UTI 03/10/20 SP edson #4 empiric, vanco #9 01/31 SP angelo/inh tobra #10 for pna 01/23 SP vanco IV #10 given CONS/GPC bacteremia 01/16 SP Zosyn #2 01/14 SP dex 10mg in ED 12/10 SP IV Gentamycin #10 12/07 SP Meropenem #10 12/01 SP IV Vancomycin #5 11/28 Sp Cefepime #2 and IV Gentamycin x1 Monitor CBC/CMP Monitor temp curve, hemodynamics Monitor resp status D/w RN Thank you for this consult. [facility] will continue to follow. Subjective Allergies: Coded Allergies: No Known Allergies (Unverified , 10/10/17) AF NAD on vent 40% PEEP 5 WBC 7.2 Objective Last 24 Hour Vital Signs Date Time Temp Pulse Resp B/P (MAP) Pulse Ox O2 Delivery O2 Flow Rate FiO2 04/03/20 08:22 78 157/72 04/03/20 08:00 74 04/03/20 08:00 98.2 72 14 157/72 (100) 92 72 04/03/20 08:00 40 04/03/20 04:00 98.2 74 15 144/86 (105) 94 74 04/03/20 04:00 71 04/03/20 04:00 40 04/03/20 04:00 Mechanical Ventilator 04/03/20 03:33 99.4 04/03/20 03:00 73 14 40 04/03/20 00:00 76 04/03/20 00:00 Mechanical Ventilator 04/03/20 00:00 99.1 74 17 148/97 (114) 74 04/02/20 23:01 97.8 04/02/20 23:00 75 22 40 04/02/20 21:26 97.7 04/02/20 20:10 73 161/81 04/02/20 20:00 Mechanical Ventilator 04/02/20 20:00 77 04/02/20 20:00 97.7 74 16 160/86 (110) 98 74 04/02/20 20:00 40 04/02/20 19:15 75 26 40 04/02/20 16:00 Mechanical Ventilator 04/02/20 16:00 98.1 68 21 171/82 (111) 90 68 04/02/20 16:00 40 04/02/20 15:36 70 04/02/20 15:03 89 24 40 04/02/20 12:00 40 04/02/20 12:00 Mechanical Ventilator 04/02/20 12:00 98.2 65 25 135/78 (97) 100 65 04/02/20 11:32 65 04/02/20 11:08 70 20 40 Height (Feet): 5 Height (Inches): 3.00 Weight (Pounds): 128 Gen: NAD HEENT: NCAT, trach Pulm: BL chest rise on vent Abd: Soft, NTND, +PEG Ext: No c/c/e Skin: No visible rashes Neuro: Awake, minimally interactive Lines: R chest Permacath dressing c/d/i Laboratory Tests Test 04/02/20 11:53 04/03/20 04:50 04/03/20 06:19 POC Whole Blood Glucose 91 MG/DL (74-106) Pending White Blood Count 7.2 K/UL (4.8-10.8) Red Blood Count 2.74 M/UL (4.20-5.40) L Hemoglobin 8.2 G/DL (12.0-16.0) L Hematocrit 24.9 % (37.0-47.0) L Mean Corpuscular Volume 91 FL (80-99) Mean Corpuscular Hemoglobin 29.8 PG (27.0-31.0) Mean Corpuscular Hemoglobin Concent 32.8 G/DL (32.0-36.0) Red Cell Distribution Width 13.6 % (11.6-14.8) Platelet Count 201 K/UL (150-450) Mean Platelet Volume 6.0 FL (6.5-10.1) L Neutrophils (%) (Auto) 71.9 % (45.0-75.0) Lymphocytes (%) (Auto) 22.2 % (20.0-45.0) Monocytes (%) (Auto) 5.0 % (1.0-10.0) Eosinophils (%) (Auto) 0.1 % (0.0-3.0) Basophils (%) (Auto) 0.9 % (0.0-2.0) Sodium Level 139 MMOL/L (136-145) Potassium Level 3.5 MMOL/L (3.5-5.1) Chloride Level 102 MMOL/L (98-107) Carbon Dioxide Level 28 MMOL/L (21-32) Anion Gap 9 mmol/L (5-15) Blood Urea Nitrogen 116 mg/dL (7-18) H Creatinine 3.0 MG/DL (0.55-1.30) H Estimat Glomerular Filtration Rate 16.7 mL/min (>60) Glucose Level 93 MG/DL (74-106) Uric Acid 5.7 MG/DL (2.6-7.2) Calcium Level 8.1 MG/DL (8.5-10.1) L Phosphorus Level 3.4 MG/DL (2.5-4.9) Magnesium Level 2.5 MG/DL (1.8-2.4) H Total Bilirubin 0.6 MG/DL (0.2-1.0) Aspartate Amino Transf (AST/SGOT) 33 U/L (15-37) Alanine Aminotransferase (ALT/SGPT) 14 U/L (12-78) Alkaline Phosphatase 133 U/L (46-116) H C-Reactive Protein, Quantitative 12.5 mg/dL (0.00-0.90) H Pro-B-Type Natriuretic Peptide > 74966 pg/mL (0-125) H Total Protein 5.4 G/DL (6.4-8.2) L Albumin 1.2 G/DL (3.4-5.0) L Globulin 4.2 g/dL Albumin/Globulin Ratio 0.3 (1.0-2.7) L Current Medications Medications (Trade) Dose Ordered Sig/Penny Route PRN Reason Start Time Stop Time Status Last Admin Dose Admin Aspirin (ASA) 81 mg DAILY GT 03/07/20 09:00 04/21/20 08:59 04/03/20 08:21 Carvedilol (Coreg) 12.5 mg EVERY 12 HOURS GT 04/02/20 09:00 05/02/20 08:59 04/03/20 08:22 Chlorhexidine Gluconate (Ling-Hex 2%) 1 applic DAILY@1999 TOPIC 03/03/20 20:00 06/01/20 19:59 04/02/20 20:09 Dextrose (Dextrose 50%) 25 ml Q30M PRN IV Hypoglycemia 03/15/20 07:30 06/13/20 07:29 Dextrose (Dextrose 50%) 50 ml Q30M PRN IV Hypoglycemia 03/15/20 07:30 06/13/20 07:29 Famotidine (Pepcid I.v.) 20 mg Q12HR IVP 03/31/20 21:00 04/30/20 20:59 04/03/20 08:22 Hydralazine HCl (Apresoline) 25 mg Q6H PRN GT For High Blood Pressure 03/02/20 22:00 05/31/20 21:59 Hydrocortisone (Anusol HC) 25 mg Q12HR RECTAL 03/23/20 21:00 06/21/20 08:59 04/03/20 08:21 Hydromorphone HCl (Dilaudid) 0.5 mg Q4H PRN IVP For Pain 04/02/20 20:30 04/09/20 20:29 04/03/20 03:03 Loperamide HCl (Imodium) 2 mg Q6H PRN GT Diarrhea 03/06/20 12:45 04/05/20 12:44 03/06/20 13:01 Metoclopramide HCl (Reglan) 5 mg Q8HR IVP 03/04/20 11:45 05/02/20 11:44 04/03/20 05:52 Sodium Hypochlorite (Dakin's Quarter Strength) 1 applic DAILY TOPIC 03/04/20 09:00 05/02/20 08:59 04/03/20 08:22 Sucralfate (Carafate) 1 gm EVERY 6 HOURS GT 03/17/20 18:00 06/09/20 08:59 04/03/20 05:52 Tramadol HCl (Ultram) 50 mg Q6H PRN ORAL Moderate Pain (Pain Scale 4-6) 03/26/20 19:30 04/09/20 19:29 04/02/20 22:31 Zinc Oxide (Zinc Oxide) 1 applic Q8HR TOPIC 03/25/20 22:00 06/22/20 17:59 04/03/20 05:52 Ro Pack M.D. Apr 03, 2020 10:02
--- NOTE | 2020-04-03 11:14 | Pulmonology Progress Note ---
Subjective ROS Limited/Unobtainable: Yes Interval Events: s/p transfusion Constitutional: Reports: fever, other - resolved HEENT: Repors: no symptoms Respiratory: Reports: no symptoms Cardiovascular: Reports: no symptoms Gastrointestinal/Abdominal: Reports: diarrhea Allergies: Coded Allergies: No Known Allergies (Unverified , 10/10/17) All Systems: reviewed and negative except above Objective Last 24 Hour Vital Signs Date Time Temp Pulse Resp B/P (MAP) Pulse Ox O2 Delivery O2 Flow Rate FiO2 04/03/20 11:08 60 14 40 04/03/20 08:22 78 157/72 04/03/20 08:00 74 04/03/20 08:00 98.2 72 14 157/72 (100) 92 72 04/03/20 08:00 40 04/03/20 07:05 50 14 40 04/03/20 04:00 98.2 74 15 144/86 (105) 94 74 04/03/20 04:00 71 04/03/20 04:00 40 04/03/20 04:00 Mechanical Ventilator 04/03/20 03:33 99.4 04/03/20 03:00 73 14 40 04/03/20 00:00 76 04/03/20 00:00 Mechanical Ventilator 04/03/20 00:00 99.1 74 17 148/97 (114) 74 04/02/20 23:01 97.8 04/02/20 23:00 75 22 40 04/02/20 21:26 97.7 04/02/20 20:10 73 161/81 04/02/20 20:00 Mechanical Ventilator 04/02/20 20:00 77 04/02/20 20:00 97.7 74 16 160/86 (110) 98 74 04/02/20 20:00 40 04/02/20 19:15 75 26 40 04/02/20 16:00 Mechanical Ventilator 04/02/20 16:00 98.1 68 21 171/82 (111) 90 68 04/02/20 16:00 40 04/02/20 15:36 70 04/02/20 15:03 89 24 40 04/02/20 12:00 40 04/02/20 12:00 Mechanical Ventilator 04/02/20 12:00 98.2 65 25 135/78 (97) 100 65 04/02/20 11:32 65 Intake and Output 04/02/20 04/03/20 19:00 07:00 Intake Total 640 ml 585 ml Balance 640 ml 585 ml Intake Free Water 220 ml Tube Feeding 420 ml 385 ml Other 200 ml General Appearance: no acute distress HEENT: atraumatic Respiratory: lungs clear Cardiovascular: normal rate, regular rhythm Extremities: other - edema bilateral Laboratory Tests 04/02/20 11:53: POC Whole Blood Glucose 91 04/03/20 04:50: White Blood Count 7.2, Red Blood Count 2.74L, Hemoglobin 8.2L, Hematocrit 24.9L, Mean Corpuscular Volume 91, Mean Corpuscular Hemoglobin 29.8, Mean Corpuscular Hemoglobin Concent 32.8, Red Cell Distribution Width 13.6, Platelet Count 201, Mean Platelet Volume 6.0L, Neutrophils (%) (Auto) 71.9, Lymphocytes (%) (Auto) 22.2, Monocytes (%) (Auto) 5.0, Eosinophils (%) (Auto) 0.1, Basophils (%) (Auto) 0.9, Sodium Level 139, Potassium Level 3.5, Chloride Level 102, Carbon Dioxide Level 28, Anion Gap 9, Blood Urea Nitrogen 116H, Creatinine 3.0H, Estimat Glomerular Filtration Rate 16.7, Glucose Level 93, Uric Acid 5.7, Calcium Level 8.1L, Phosphorus Level 3.4, Magnesium Level 2.5H, Total Bilirubin 0.6, Aspartate Amino Transf (AST/SGOT) 33, Alanine Aminotransferase (ALT/SGPT) 14, Alkaline Phosphatase 133H, C-Reactive Protein, Quantitative 12.5H, Pro-B-Type Natriuretic Peptide > 06372O, Total Protein 5.4L, Albumin 1.2L, Globulin 4.2, Albumin/Globulin Ratio 0.3L 04/03/20 06:19: POC Whole Blood Glucose [Pending] Current Medications Medications (Trade) Dose Ordered Sig/Penny Route PRN Reason Start Time Stop Time Status Last Admin Dose Admin Aspirin (ASA) 81 mg DAILY GT 03/07/20 09:00 04/21/20 08:59 04/03/20 08:21 Carvedilol (Coreg) 12.5 mg EVERY 12 HOURS GT 04/02/20 09:00 05/02/20 08:59 04/03/20 08:22 Chlorhexidine Gluconate (Ling-Hex 2%) 1 applic DAILY@1999 TOPIC 03/03/20 20:00 06/01/20 19:59 04/02/20 20:09 Dextrose (Dextrose 50%) 25 ml Q30M PRN IV Hypoglycemia 03/15/20 07:30 06/13/20 07:29 Dextrose (Dextrose 50%) 50 ml Q30M PRN IV Hypoglycemia 03/15/20 07:30 06/13/20 07:29 Famotidine (Pepcid I.v.) 20 mg Q12HR IVP 03/31/20 21:00 04/30/20 20:59 04/03/20 08:22 Hydralazine HCl (Apresoline) 25 mg Q6H PRN GT For High Blood Pressure 03/02/20 22:00 05/31/20 21:59 Hydrocortisone (Anusol HC) 25 mg Q12HR RECTAL 03/23/20 21:00 06/21/20 08:59 04/03/20 08:21 Hydromorphone HCl (Dilaudid) 0.5 mg Q4H PRN IVP For Pain 04/02/20 20:30 04/09/20 20:29 04/03/20 03:03 Loperamide HCl (Imodium) 2 mg Q6H PRN GT Diarrhea 03/06/20 12:45 04/05/20 12:44 03/06/20 13:01 Metoclopramide HCl (Reglan) 5 mg Q8HR IVP 03/04/20 11:45 05/02/20 11:44 04/03/20 05:52 Sodium Hypochlorite (Dakin's Quarter Strength) 1 applic DAILY TOPIC 03/04/20 09:00 05/02/20 08:59 04/03/20 08:22 Sucralfate (Carafate) 1 gm EVERY 6 HOURS GT 03/17/20 18:00 06/09/20 08:59 04/03/20 05:52 Tramadol HCl (Ultram) 50 mg Q6H PRN ORAL Moderate Pain (Pain Scale 4-6) 03/26/20 19:30 04/09/20 19:29 04/02/20 22:31 Zinc Oxide (Zinc Oxide) 1 applic Q8HR TOPIC 03/25/20 22:00 06/22/20 17:59 04/03/20 05:52 Assessment/Plan Assessment/Plan 1. Chronic respiratory failure. - CT chest/abd/pelv: improving pleural effusion 2. Mechanical ventilation. - Now back to 40% FiO2 saturating well - suction secretions as needed 3. Chronic tracheostomy. 4. Chronic G-tube. 5. Anemia. - s/p transfusion - stool OB positive (03/02, 03/03, 03/22) - off anticoags 6. Renal failure. 7. Leukocytosis and sepsis. - WBC now wnl 8. Sepsis UTI 9. Gram positive cocci bacteremia - f/u BCx negative for growth 10. COVID-19 negative 11. Diarrhea - C. diff neg 12. Hypoglycemia - resolved 13. Bradycardia - no urgent indication for pacemaker per cardio 14. Gastric ulcer - on PPI -No active bleeding - GI following 15. Pleural effusion - small; insufficient volume for safe thoracentesis 16. thoracic aortic aneurysm - noted on CT imaging - pt needs emergent transfer out to [facility] for CT surgery evaluation, primary MD aware - Pt might not be a candidate for TAA repair 17. Ascites - s/p paracentesis (2/3), 2.3L out 18. DVT ppx - on SCD -Venous duplex ultrasound of legs negative for DVT (03/25) The care of this patient was discussed with my supervising physician Time spent for this encounter was approximately 31 minutes Cruz Wilson Apr 03, 2020 11:14
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
[2020-04-03 12:00] VITALS: BP 141/72
--- NOTE | 2020-04-03 12:00 | NUR ---
NURSE NOTES: pt with ongoing Hemodialysis at bedside,GT medic hold.
--- NOTE | 2020-04-03 12:56 | Nephrology Progress Note ---
Assessment/Plan Problem List: (1) Renal failure (ARF), acute on chronic (2) Anemia (3) Hyponatremia (4) Respiratory failure Assessment (1) JAVIER (acute kidney injury) (2) Renal failure (ARF), acute on chronic (3) Feeding by G-tube (4) Tracheostomy in place (5) Electrolyte imbalance, hyponatremia (6) Anemia, severe (7) Respiratory failure, acute and chronic (8) history of elevated lipase, pancreatitis (9) Elevated troponin I (10) Sepsis Plan April 03: Labs reviewed. We will order dialysis today. Continue per consultants. April 02: Labs reviewed. No need for dialysis today. Continue to monitor renal parameters. April 01: Labs reviewed. Renal parameters stable. No dialysis today. Continue per consultants. March 31: No labs drawn today. Renal parameters stable as of yesterday. Will check lab tomorrow. Dialysis as needed. March 30: Labs reviewed. Low phosphorus addressed. Continue per PMD and consultants. Dialysis as needed. March 29: Dialyzed yesterday. No CHEM panel drawn today. We will continue to monitor renal parameters. Continue per consultants. March 28: Due for dialysis today. Labs reviewed. Stable from renal standpoint of view. March 27: Due for dialysis tomorrow. Labs reviewed. Medication list reviewed. Continue per current management. March 26: Last dialyzed March 24. Labs reviewed. Low phosphorus replaced. Continue to monitor renal parameters. Dialysis as needed. March 25: Dialyzed yesterday. Labs reviewed. Low phosphorus replaced. Continue per current management. Hemoglobin higher. March 24: Labs reviewed. Due for dialysis today. Continue per current management. Hemoglobin lower. Transfusion per log brander. March 23: Labs reviewed. Dialyzed yesterday. Next dialysis tomorrow. Anemia management per log brander. March 22: Labs reviewed. Due for dialysis today. Discussed with RN. Agree with discontinuation of the Norman catheter. Hemoglobin lower. Transfusion per log brander. March 21: Labs reviewed. Will arrange for dialysis tomorrow. Continue per consultants. Will hold phosphorus binders at this time. March 20: Labs reviewed. Patient was dialyzed yesterday. Electrolyte abnormalities corrected. Continue per current management. March 19: Due for dialysis today. Abnormal labs noted. All will be corrected after dialysis. March 18: Labs reviewed. Will dialyze tomorrow. Patient being transfused today. Patient due for abdominal paracentesis. We will keep the Norman in. Continue to monitor renal parameters and dialyze as needed. March 17: No CHEM panel done today. CBC reviewed. Hemoglobin is lowering. Dialyzed yesterday. Will check lab tomorrow. Continue per consultants. March 16: Labs reviewed. Due for dialysis today. Hemoglobin 10.2 today. Continue to monitor renal parameters. March 15: Labs reviewed. Dialyzed March 13. Due for dialysis March 16. Hemoglobin lower. 1 unit of packed RBCs ordered. Per orders. March 14: No labs drawn today. Dialyzed yesterday. Full code. Will check lab tomorrow. Dialysis as needed. March 13: Labs reviewed. Due for dialysis today. Patient remains full code. Continue per current management. March 12: Labs reviewed. Dialyzed yesterday. Due for dialysis tomorrow. Discussed with RN. Patient full code. Continue per current management. March 11: Labs reviewed. Dialyzed this morning. Phosphorus binders dose adjusted. Continue per consultants. Continue to monitor renal parameters. CT: Extensive thoracoabdominal aortic dissection March 10: Labs reviewed. Will order dialysis tomorrow. Phosphorus binders added. Continue per consultants. March 09: No chemistry panel done today. Patient dialyzed yesterday. On dextrose 10% for hypoglycemia. We will check labs tomorrow. Dialysis as needed. March 08: Labs reviewed. Will order dialysis today. Blood sugar low. D10 50 cc an hour started. Continue as is. March 07: Labs reviewed. Dialyzed March 05 and March 06. Continue to monitor renal parameters and hemoglobin. Abnormal electrolytes addressed. IV fluids stopped. Per orders. March 06: Labs reviewed. Dialyzed yesterday. Will reorder dialysis for today. Continue to monitor renal parameters. Hemoglobin 8.4. Patient full code. March 05: Labs reviewed. Patient did not receive dialysis until this morning. Proceed with dialysis. Continue to monitor renal parameters and hemoglobin and hematocrit. March 04: Labs reviewed. Hemoglobin lower. Patient actively bleeding. Was not dialyzed yesterday. Due for GI endoscopy. Continue fluid challenge. Transfusion as needed. Dialysis today. March 03: Labs reviewed. Dialysis ordered. Blood pressure medication all discontinued due to hypotensive state. Albumin bolus given. Continue to monitor renal parameters. Medication list reviewed. Midodrin for low blood pressure ordered Subjective ROS Limited/Unobtainable: Yes Objective Objective Last 24 Hour Vital Signs Date Time Temp Pulse Resp B/P (MAP) Pulse Ox O2 Delivery O2 Flow Rate FiO2 04/03/20 11:08 60 14 40 04/03/20 08:22 78 157/72 04/03/20 08:00 74 04/03/20 08:00 98.2 72 14 157/72 (100) 92 72 04/03/20 08:00 40 04/03/20 07:05 50 14 40 04/03/20 04:00 98.2 74 15 144/86 (105) 94 74 04/03/20 04:00 71 04/03/20 04:00 40 04/03/20 04:00 Mechanical Ventilator 04/03/20 03:33 99.4 04/03/20 03:00 73 14 40 04/03/20 00:00 76 04/03/20 00:00 Mechanical Ventilator 04/03/20 00:00 99.1 74 17 148/97 (114) 74 04/02/20 23:01 97.8 04/02/20 23:00 75 22 40 04/02/20 21:26 97.7 04/02/20 20:10 73 161/81 04/02/20 20:00 Mechanical Ventilator 04/02/20 20:00 77 04/02/20 20:00 97.7 74 16 160/86 (110) 98 74 04/02/20 20:00 40 04/02/20 19:15 75 26 40 04/02/20 16:00 Mechanical Ventilator 04/02/20 16:00 98.1 68 21 171/82 (111) 90 68 04/02/20 16:00 40 04/02/20 15:36 70 04/02/20 15:03 89 24 40 Intake and Output 04/02/20 04/03/20 19:00 07:00 Intake Total 640 ml 585 ml Balance 640 ml 585 ml Intake Free Water 220 ml Tube Feeding 420 ml 385 ml Other 200 ml Current Medications Medications (Trade) Dose Ordered Sig/Penny Route PRN Reason Start Time Stop Time Status Last Admin Dose Admin Aspirin (ASA) 81 mg DAILY GT 03/07/20 09:00 04/21/20 08:59 04/03/20 08:21 Carvedilol (Coreg) 12.5 mg EVERY 12 HOURS GT 04/02/20 09:00 05/02/20 08:59 04/03/20 08:22 Chlorhexidine Gluconate (Ling-Hex 2%) 1 applic DAILY@2000 TOPIC 03/03/20 20:00 06/01/20 19:59 04/02/20 20:09 Dextrose (Dextrose 50%) 25 ml Q30M PRN IV Hypoglycemia 03/15/20 07:30 06/13/20 07:29 Dextrose (Dextrose 50%) 50 ml Q30M PRN IV Hypoglycemia 03/15/20 07:30 06/13/20 07:29 Famotidine (Pepcid I.v.) 20 mg Q12HR IVP 03/31/20 21:00 04/30/20 20:59 04/03/20 08:22 Hydralazine HCl (Apresoline) 25 mg Q6H PRN GT For High Blood Pressure 03/02/20 22:00 05/31/20 21:59 Hydrocortisone (Anusol HC) 25 mg Q12HR RECTAL 03/23/20 21:00 06/21/20 08:59 04/03/20 08:21 Hydromorphone HCl (Dilaudid) 0.5 mg Q4H PRN IVP For Pain 04/02/20 20:30 04/09/20 20:29 04/03/20 03:03 Loperamide HCl (Imodium) 2 mg Q6H PRN GT Diarrhea 03/06/20 12:45 04/05/20 12:44 03/06/20 13:01 Metoclopramide HCl (Reglan) 5 mg Q8HR IVP 03/04/20 11:45 05/02/20 11:44 04/03/20 05:52 Sodium Hypochlorite (Dakin's Quarter Strength) 1 applic DAILY TOPIC 03/04/20 09:00 05/02/20 08:59 04/03/20 08:22 Sucralfate (Carafate) 1 gm EVERY 6 HOURS GT 03/17/20 18:00 06/09/20 08:59 04/03/20 05:52 Tramadol HCl (Ultram) 50 mg Q6H PRN ORAL Moderate Pain (Pain Scale 4-6) 03/26/20 19:30 04/09/20 19:29 04/02/20 22:31 Zinc Oxide (Zinc Oxide) 1 applic Q8HR TOPIC 03/25/20 22:00 06/22/20 17:59 04/03/20 05:52 Laboratory Tests 04/03/20 04:50: White Blood Count 7.2, Red Blood Count 2.74L, Hemoglobin 8.2L, Hematocrit 24.9L, Mean Corpuscular Volume 91, Mean Corpuscular Hemoglobin 29.8, Mean Corpuscular Hemoglobin Concent 32.8, Red Cell Distribution Width 13.6, Platelet Count 201, Mean Platelet Volume 6.0L, Neutrophils (%) (Auto) 71.9, Lymphocytes (%) (Auto) 22.2, Monocytes (%) (Auto) 5.0, Eosinophils (%) (Auto) 0.1, Basophils (%) (Auto) 0.9, Sodium Level 139, Potassium Level 3.5, Chloride Level 102, Carbon Dioxide Level 28, Anion Gap 9, Blood Urea Nitrogen 116H, Creatinine 3.0H, Estimat Glomerular Filtration Rate 16.7, Glucose Level 93, Uric Acid 5.7, Calcium Level 8.1L, Phosphorus Level 3.4, Magnesium Level 2.5H, Total Bilirubin 0.6, Aspartate Amino Transf (AST/SGOT) 33, Alanine Aminotransferase (ALT/SGPT) 14, Alkaline Phosphatase 133H, C-Reactive Protein, Quantitative 12.5H, Pro-B-Type Natriuretic Peptide > 83852J, Total Protein 5.4L, Albumin 1.2L, Globulin 4.2, Albumin/Globulin Ratio 0.3L 04/03/20 06:19: POC Whole Blood Glucose [Pending] 04/03/20 11:22: POC Whole Blood Glucose [Pending] Height (Feet): 5 Height (Inches): 3.00 Weight (Pounds): 128 General Appearance: no apparent distress, lethargic EENT: other - Trach to vent Neck: limited range of motion Cardiovascular: normal rate Respiratory/Chest: decreased breath sounds Abdomen: distended Johnny Houston MD Apr 03, 2020 12:56
--- NOTE | 2020-04-03 13:00 | General Progress Note ---
Subjective ROS Limited/Unobtainable: No Allergies: Coded Allergies: No Known Allergies (Unverified , 10/10/17) Objective Last 24 Hour Vital Signs Date Time Temp Pulse Resp B/P (MAP) Pulse Ox O2 Delivery O2 Flow Rate FiO2 04/03/20 11:08 60 14 40 04/03/20 08:22 78 157/72 04/03/20 08:00 74 04/03/20 08:00 98.2 72 14 157/72 (100) 92 72 04/03/20 08:00 40 04/03/20 07:05 50 14 40 04/03/20 04:00 98.2 74 15 144/86 (105) 94 74 04/03/20 04:00 71 04/03/20 04:00 40 04/03/20 04:00 Mechanical Ventilator 04/03/20 03:33 99.4 04/03/20 03:00 73 14 40 04/03/20 00:00 76 04/03/20 00:00 Mechanical Ventilator 04/03/20 00:00 99.1 74 17 148/97 (114) 74 04/02/20 23:01 97.8 04/02/20 23:00 75 22 40 04/02/20 21:26 97.7 04/02/20 20:10 73 161/81 04/02/20 20:00 Mechanical Ventilator 04/02/20 20:00 77 04/02/20 20:00 97.7 74 16 160/86 (110) 98 74 04/02/20 20:00 40 04/02/20 19:15 75 26 40 04/02/20 16:00 Mechanical Ventilator 04/02/20 16:00 98.1 68 21 171/82 (111) 90 68 04/02/20 16:00 40 04/02/20 15:36 70 04/02/20 15:03 89 24 40 Intake and Output 04/02/20 04/03/20 19:00 07:00 Intake Total 640 ml 585 ml Balance 640 ml 585 ml Intake Free Water 220 ml Tube Feeding 420 ml 385 ml Other 200 ml Laboratory Tests 04/03/20 04:50: White Blood Count 7.2, Red Blood Count 2.74L, Hemoglobin 8.2L, Hematocrit 24.9L, Mean Corpuscular Volume 91, Mean Corpuscular Hemoglobin 29.8, Mean Corpuscular Hemoglobin Concent 32.8, Red Cell Distribution Width 13.6, Platelet Count 201, Mean Platelet Volume 6.0L, Neutrophils (%) (Auto) 71.9, Lymphocytes (%) (Auto) 22.2, Monocytes (%) (Auto) 5.0, Eosinophils (%) (Auto) 0.1, Basophils (%) (Auto) 0.9, Sodium Level 139, Potassium Level 3.5, Chloride Level 102, Carbon Dioxide Level 28, Anion Gap 9, Blood Urea Nitrogen 116H, Creatinine 3.0H, Estimat Glomerular Filtration Rate 16.7, Glucose Level 93, Uric Acid 5.7, Calcium Level 8.1L, Phosphorus Level 3.4, Magnesium Level 2.5H, Total Bilirubin 0.6, Aspartate Amino Transf (AST/SGOT) 33, Alanine Aminotransferase (ALT/SGPT) 14, Alkaline Phosphatase 133H, C-Reactive Protein, Quantitative 12.5H, Pro-B-Type Natriuretic Peptide > 87154Q, Total Protein 5.4L, Albumin 1.2L, Globulin 4.2, Albumin/Globulin Ratio 0.3L 04/03/20 06:19: POC Whole Blood Glucose [Pending] 04/03/20 11:22: POC Whole Blood Glucose [Pending] Height (Feet): 5 Height (Inches): 3.00 Weight (Pounds): 128 General Appearance: no apparent distress EENT: normal ENT inspection Neck: supple Cardiovascular: normal rate Respiratory/Chest: decreased breath sounds Abdomen: normal bowel sounds, non tender, soft Extremities: non-tender Assessment/Plan Problem List: (1) Hx of CABG ICD Codes: Z95.1 - Presence of aortocoronary bypass graft SNOMED: 587732023, 030143669 (2) History of tracheostomy ICD Codes: Z98.890 - Other specified postprocedural states SNOMED: 673660569, 274613304 (3) PEG (percutaneous endoscopic gastrostomy) status ICD Codes: Z93.1 - Gastrostomy status SNOMED: 239376136, 229183019 (4) Renal failure ICD Codes: N19 - Unspecified kidney failure SNOMED: 30162450, 098392436 (5) Severe anemia ICD Codes: D64.9 - Anemia, unspecified SNOMED: 228205254 Assessment/Plan: s/p EGD gastric ulcer on ppi and carafate fu H&H GTF s/p EGD GT tightened at the bedside repeat labs will fu Inder Mccauley MD Apr 03, 2020 13:00
--- NOTE | 2020-04-03 15:35 | NUR ---
INSURANCE CLINICALS/REVIEW FAXED TO [facility] T: [phone] F: [phone]
[2020-04-03 16:00] VITALS: BP 139/59
--- NOTE | 2020-04-03 18:00 | NUR ---
NURSE NOTES: Dr lewis at bed side,informwed re pt's excoriated skin at GT site due leaking of gastric secretions,GT loose .
--- NOTE | 2020-04-03 18:07 | Cardiology Progress Note ---
Subjective DATE OF SERVICE: Apr 03, 2020 Heart rates remain in stable range; carvedilol therapy tolerated without significant bradycardia, in setting of aortic dissection. BP parameterg were trending upward, but improved with discontinuation of midodrine. CT scan revealed extensive thoracoabd aortic dissection- [place] Type B Dialysis per renal Pt is s/p paracentesis (50cc) Objective Last 24 Hour Vital Signs Date Time Temp Pulse Resp B/P (MAP) Pulse Ox O2 Delivery O2 Flow Rate FiO2 04/03/20 16:00 97.9 58 14 139/59 (85) 100 58 04/03/20 16:00 Mechanical Ventilator 04/03/20 16:00 40 04/03/20 14:53 60 14 40 04/03/20 13:19 59 04/03/20 12:00 97.9 62 14 141/72 (95) 97 62 04/03/20 12:00 40 04/03/20 12:00 Mechanical Ventilator 04/03/20 11:08 60 14 40 04/03/20 08:22 78 157/72 04/03/20 08:00 74 04/03/20 08:00 98.2 72 14 157/72 (100) 92 72 04/03/20 08:00 40 04/03/20 08:00 Mechanical Ventilator 04/03/20 07:05 50 14 40 04/03/20 04:00 98.2 74 15 144/86 (105) 94 74 04/03/20 04:00 71 04/03/20 04:00 40 04/03/20 04:00 Mechanical Ventilator 04/03/20 03:33 99.4 04/03/20 03:00 73 14 40 04/03/20 00:00 76 04/03/20 00:00 Mechanical Ventilator 04/03/20 00:00 99.1 74 17 148/97 (114) 74 04/02/20 23:01 97.8 04/02/20 23:00 75 22 40 04/02/20 21:26 97.7 04/02/20 20:10 73 161/81 04/02/20 20:00 Mechanical Ventilator 04/02/20 20:00 77 04/02/20 20:00 97.7 74 16 160/86 (110) 98 74 04/02/20 20:00 40 04/02/20 19:15 75 26 40 HEENT: Thin Trach secretions RHYTHM: NSR, SB LUNGS: bilateral rhonchi - few, trach site clean CARDIAC: normal rate, regular rhythm, normal S1 and S2 ABDOMEN: normal bowel sounds, non tender, soft, G-Tube intact EXTREMITIES: normal range of motion, non-tender, normal inspection Laboratory Tests Test 04/03/20 04:50 04/03/20 06:19 04/03/20 11:22 04/03/20 17:34 White Blood Count 7.2 K/UL (4.8-10.8) Red Blood Count 2.74 M/UL (4.20-5.40) L Hemoglobin 8.2 G/DL (12.0-16.0) L Hematocrit 24.9 % (37.0-47.0) L Mean Corpuscular Volume 91 FL (80-99) Mean Corpuscular Hemoglobin 29.8 PG (27.0-31.0) Mean Corpuscular Hemoglobin Concent 32.8 G/DL (32.0-36.0) Red Cell Distribution Width 13.6 % (11.6-14.8) Platelet Count 201 K/UL (150-450) Mean Platelet Volume 6.0 FL (6.5-10.1) L Neutrophils (%) (Auto) 71.9 % (45.0-75.0) Lymphocytes (%) (Auto) 22.2 % (20.0-45.0) Monocytes (%) (Auto) 5.0 % (1.0-10.0) Eosinophils (%) (Auto) 0.1 % (0.0-3.0) Basophils (%) (Auto) 0.9 % (0.0-2.0) Sodium Level 139 MMOL/L (136-145) Potassium Level 3.5 MMOL/L (3.5-5.1) Chloride Level 102 MMOL/L (98-107) Carbon Dioxide Level 28 MMOL/L (21-32) Anion Gap 9 mmol/L (5-15) Blood Urea Nitrogen 116 mg/dL (7-18) H Creatinine 3.0 MG/DL (0.55-1.30) H Estimat Glomerular Filtration Rate 16.7 mL/min (>60) Glucose Level 93 MG/DL (74-106) Uric Acid 5.7 MG/DL (2.6-7.2) Calcium Level 8.1 MG/DL (8.5-10.1) L Phosphorus Level 3.4 MG/DL (2.5-4.9) Magnesium Level 2.5 MG/DL (1.8-2.4) H Total Bilirubin 0.6 MG/DL (0.2-1.0) Aspartate Amino Transf (AST/SGOT) 33 U/L (15-37) Alanine Aminotransferase (ALT/SGPT) 14 U/L (12-78) Alkaline Phosphatase 133 U/L (46-116) H C-Reactive Protein, Quantitative 12.5 mg/dL (0.00-0.90) H Pro-B-Type Natriuretic Peptide > 58666 pg/mL (0-125) H Total Protein 5.4 G/DL (6.4-8.2) L Albumin 1.2 G/DL (3.4-5.0) L Globulin 4.2 g/dL Albumin/Globulin Ratio 0.3 (1.0-2.7) L POC Whole Blood Glucose Pending Pending 91 MG/DL (74-106) Assessment/Plan Assessment/Plan Aortic dissections - Chase B Sepsis with recovered shock Sinus node disease with bradycardia Hx pacemaker explant Ischemic cardiomyopathy - hx CABG? Paroxysmal Atrial Fib Respiratory failure with trach Hx thoracic aortic aneurysm repair ESRD Anemia HypoPO4 Hypertension/HHD with rising BP range Will maintain current dose of beta flori (with hold parameter). 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 Non-surgical mngmt Deni Willams MD Apr 03, 2020 18:07
--- NOTE | 2020-04-03 18:30 | NUR ---
NURSE NOTES: called Dr Mccauley per instructions of Dr Dong to inform him of loose GT site,awaiting return of call.
--- NOTE | 2020-04-03 18:47 | General Progress Note ---
Subjective Constitutional: Reports: no symptoms HEENT: Reports: no symptoms Cardiovascular: Reports: no symptoms Respiratory: Reports: no symptoms Gastrointestinal/Abdominal: Reports: no symptoms Genitourinary: Reports: no symptoms Neurologic/Psychiatric: Reports: depressed, other - Is again tearful alert responsive Endocrine: Reports: no symptoms Hematologic/Lymphatic: Reports: no symptoms Allergies: Coded Allergies: No Known Allergies (Unverified , 10/10/17) Objective Last 24 Hour Vital Signs Date Time Temp Pulse Resp B/P (MAP) Pulse Ox O2 Delivery O2 Flow Rate FiO2 04/03/20 16:00 97.9 58 14 139/59 (85) 100 58 04/03/20 16:00 Mechanical Ventilator 04/03/20 16:00 40 04/03/20 14:53 60 14 40 04/03/20 13:19 59 04/03/20 12:00 97.9 62 14 141/72 (95) 97 62 04/03/20 12:00 40 04/03/20 12:00 Mechanical Ventilator 04/03/20 11:08 60 14 40 04/03/20 08:22 78 157/72 04/03/20 08:00 74 04/03/20 08:00 98.2 72 14 157/72 (100) 92 72 04/03/20 08:00 40 04/03/20 08:00 Mechanical Ventilator 04/03/20 07:05 50 14 40 04/03/20 04:00 98.2 74 15 144/86 (105) 94 74 04/03/20 04:00 71 04/03/20 04:00 40 04/03/20 04:00 Mechanical Ventilator 04/03/20 03:33 99.4 04/03/20 03:00 73 14 40 04/03/20 00:00 76 04/03/20 00:00 Mechanical Ventilator 04/03/20 00:00 99.1 74 17 148/97 (114) 74 04/02/20 23:01 97.8 04/02/20 23:00 75 22 40 04/02/20 21:26 97.7 04/02/20 20:10 73 161/81 04/02/20 20:00 Mechanical Ventilator 04/02/20 20:00 77 04/02/20 20:00 97.7 74 16 160/86 (110) 98 74 04/02/20 20:00 40 04/02/20 19:15 75 26 40 Intake and Output 04/02/20 04/03/20 19:00 07:00 Intake Total 640 ml 620 ml Balance 640 ml 620 ml Intake Free Water 220 ml Tube Feeding 420 ml 420 ml Other 200 ml Laboratory Tests 04/03/20 04:50: White Blood Count 7.2, Red Blood Count 2.74L, Hemoglobin 8.2L, Hematocrit 24.9L, Mean Corpuscular Volume 91, Mean Corpuscular Hemoglobin 29.8, Mean Corpuscular Hemoglobin Concent 32.8, Red Cell Distribution Width 13.6, Platelet Count 201, Mean Platelet Volume 6.0L, Neutrophils (%) (Auto) 71.9, Lymphocytes (%) (Auto) 22.2, Monocytes (%) (Auto) 5.0, Eosinophils (%) (Auto) 0.1, Basophils (%) (Auto) 0.9, Sodium Level 139, Potassium Level 3.5, Chloride Level 102, Carbon Dioxide L evel 28, Anion Gap 9, Blood Urea Nitrogen 116H, Creatinine 3.0H, Estimat Glomerular Filtration Rate 16.7, Glucose Level 93, Uric Acid 5.7, Calcium Level 8.1L, Phosphorus Level 3.4, Magnesium Level 2.5H, Total Bilirubin 0.6, Aspartate Amino Transf (AST/SGOT) 33, Alanine Aminotransferase (ALT/SGPT) 14, Alkaline Phosphatase 133H, C-Reactive Protein, Quantitative 12.5H, Pro-B-Type Natriuretic Peptide > 11459M, Total Protein 5.4L, Albumin 1.2L, Globulin 4.2, Albumin/Globulin Ratio 0.3L 04/03/20 06:19: POC Whole Blood Glucose [Pending] 04/03/20 11:22: POC Whole Blood Glucose [Pending] 04/03/20 17:34: POC Whole Blood Glucose 91 Height (Feet): 5 Height (Inches): 3.00 Weight (Pounds): 128 General Appearance: no apparent distress, confused EENT: normal ENT inspection Neck: supple Cardiovascular: normal rate, regular rhythm, no gallop/murmur, no JVD Respiratory/Chest: no respiratory distress, no accessory muscle use, decreased breath sounds Abdomen: normal bowel sounds, non tender, soft, no organomegaly, no mass - She did develop erythema around the gastrostomy tube and some of the food administered is leaking out on the abdominal wall Neurologic: alert, depressed affect Skin: warm/dry Assessment/Plan Status Narrative Patient is a febrile alert hemodynamically stable and tearful today when unable to express why she is in the state normal attention span hypersalivation suction of the tracheostomy generate a copious amount of bronchial liquid gastrostomy site show an inflamed abdomen and food is leaking out from his normal laboratory tests are normal without leukocytosis now for more than a week was called to assist in management of this case once the G-tube is fixed patient can be transferred to the previous extended care facility as the patient did not use a [place] dialysis now for the last 5 days for the time being repeat laboratory tests will be done in a.. Lucas Vera MD, MD Apr 03, 2020 18:47
--- NOTE | 2020-04-03 19:02 | NUR ---
NURSE HAND-OFF REPORT: Important Events on Shift:GT site loose,and excoriated,Dr Dong informed ,called DR Arreguin Patient Status: stable Diet: Nepro at 35 ml/hr/GT Pending Orders: Pending Results/Labs: Pending MD notification: Latest Vital Signs: Temperature 97.9 , Pulse 58 , B/P 139 /59 , Respiratory Rate 14 , O2 SAT 100 , Mechanical Ventilator, O2 Flow Rate . Vital Sign Comment: EKG Rhythm: Sinus Rhythm Rhythm change?: N Notified?: N -Dr Екатерина HATFIELD Response: No New Orders Received Latest [place] Fall Score: 60 Fall Risk: High Risk Safety Measures: Call light Within Reach, Bed Alarm Zone 2, Side Rails Side Rails x3, Bed position Low and Locked. Fall Precautions: Yellow Socks Report given to Nidhi Araujo RN.
--- NOTE | 2020-04-03 19:10 | NUR ---
NURSE NOTES: RN received report from ERASMO Medel. Rn advised that tube feeding is hold due to the excoriation and copious draining around gtube. RN advised that Dr. Dong saw patient and advised to hold TF until Dr. Smith gave orders. Rn advised she paged Dr. Smith. This RN also paged again for further orders. Awaiting return call. Patient on mechanical ventilator ac 14 tidal volume 500 fio2 40% and PEEP of 5 with 02 sats at 100%. Patient was repositioned. RN will continue to monitor.
[2020-04-03 20:00] VITALS: BP 142/65
[2020-04-03] MEDS: Dyna-Hex 2% Top Sol 2oz TOPIC SCH (20:35)
[2020-04-04] VITALS (21 sets, daily range): BP systolic 121–143; BP diastolic 48–91
--- NOTE | 2020-04-04 00:30 | NUR ---
Patient heart rate trending low. Patient had dialysis today and 2L was removed. Patient bp stable 136/73. Patient sleeping. Patient blood glucose 88. Patient bathed and repoisitoned. TF still off due to the copios draining RN changed dressing to gtube site and applied oinment. RN will continue to monitor.
--- NOTE | 2020-04-04 03:30 | NUR ---
NURSE NOTES: Patient found to clammy and diaphoretic. RN checked bp and it was 136/52. RN checked blood glucose and was found to 41. RN gave an amp of D50 and rechecked blood glucose after 215 minutes and was found to be 220. Patient heart rate continue to sustain in the 30s RN notified Dr. Dong and an order was given got x1 dose of Atropine and transfer to the ICU. also advised to notify Dr. Macario. RN paged Dr. Macario and awaiting callback.
[2020-04-04] MEDS ORDERED: Atropine Inj 1mg/10ml Syr IVP SCH (04:15)
[2020-04-04] MEDS ORDERED: Atropine Sulfate 0.4mg/ml inj ONE (04:23)
[2020-04-04 05:47] LABS: EOSINOPHILS % (AUTO) 0.1 % (0.0-3.0); HEMATOCRIT 26.1 % (37.0-47.0); HEMOGLOBIN 8.7 G/DL (12.0-16.0); LYMPHOCYTES % (AUTO) 21.7 % (20.0-45.0); MEAN CORPUSCULAR VOLUME 92 FL (80-99); MONOCYTES % (AUTO) 5.1 % (1.0-10.0); NEUTROPHILS % (AUTO) 72.1 % (45.0-75.0); PLATELET COUNT 217 K/UL (150-450); RED BLOOD COUNT 2.83 M/UL (4.20-5.40); RED CELL DISTRIBUTION WIDTH 13.7 % (11.6-14.8); WHITE BLOOD COUNT 6.1 K/UL (4.8-10.8)
[2020-04-04 06:13] LABS: ALANINE AMINOTRANSFERASE 15 U/L (12-78); ALBUMIN 1.2 G/DL (3.4-5.0); ALBUMIN/GLOBULIN RATIO 0.3 (1.0-2.7); ALKALINE PHOSPHATASE 128 U/L (46-116); ANION GAP 6 mmol/L (5-15); ASPARTATE AMINO TRANSFERASE 42 U/L (15-37); BILIRUBIN,TOTAL 0.7 MG/DL (0.2-1.0); BLOOD UREA NITROGEN 95 mg/dL (7-18); CALCIUM 8.4 MG/DL (8.5-10.1); CARBON DIOXIDE 30 MMOL/L (21-32); CHLORIDE 105 MMOL/L (98-107); CREATININE 2.5 MG/DL (0.55-1.30); PHOSPHORUS 3.6 MG/DL (2.5-4.9); POTASSIUM 3.9 MMOL/L (3.5-5.1); SODIUM 141 MMOL/L (136-145)
[2020-04-04] MEDS: Metoclopramide 10mg/2ml Inj IVP SCH ×3 (06:14→22:06)
[2020-04-04] MEDS: Sucralfate 1gm tab GT SCH ×4 (06:14→22:29)
[2020-04-04] MEDS: Zinc Oxide Oint 2oz TOPIC SCH ×3 (06:14→22:06)
--- NOTE | 2020-04-04 07:25 | NUR ---
RESPIRATORY NOTE: Received pt on AC 14-500ml-40%FiO2- peep of 5. Pt has trach Shiley 7.0, secured by trach tie/trach guard. Pt has low HR 43bpm, but no respiratory distress noted. Suctioned moderate amt of thick velasco yellow secretions without incidents. Alarms are on and audible, ambu bag and spare trach at bedside, vent is plugged into the red outlet, vent circuits are patent and out of the way. Will continue to monitor patient.
--- NOTE | 2020-04-04 07:30 | NUR ---
NURSE NOTES: Received bedside report from ERASMO Terrell. Pt AAOX1, opens eyes spontaneously, nonverbal. Pt SB on the threat monitoring analyst, HR between 30-40, MD Willams aware per prior RN. Pt trached to vent, Shiley 7, vent settings: A/C 14, T/V 500, FiO2 40%, Peep 5, O2 sat between 95-100%. Pt has G-tube, yellow green drainage noted leaking from site, will notify MD. Pt kept NPO at this time due to G-tube leak and excoriation noted around G-tube site. Pt oliguric. Skin alteration noted in chart and covered with optifoam. Pt has left FA 20g and Right hand 22g PIV, no signs of infection or complication noted from sites. Pt has Right Chest Permacath for hemodialysis, no signs of infection or complication noted, dressing clean dry and intact. HOB at 30 degrees. Bed rails up, bed locked and in lowest position. Safety precautions maintained. Will continue to monitor.
--- NOTE | 2020-04-04 07:40 | NUR ---
NURSE NOTES: Spoke with MD Mccauley and made MD aware regarding pt's G-tube site leaking with yellow green drainage, pt kept NPO. Received order from MD Mccauley to put pt on low-intermittent suction via G-tube. Per MD, he will come later in the afternoon and change pt's GTube to 22 fr. Safety precautions maintained. Will continue to monitor pt.
--- NOTE | 2020-04-04 07:41 | General Progress Note ---
Subjective ROS Limited/Unobtainable: No Allergies: Coded Allergies: No Known Allergies (Unverified , 10/10/17) Objective Last 24 Hour Vital Signs Date Time Temp Pulse Resp B/P (MAP) Pulse Ox O2 Delivery O2 Flow Rate FiO2 04/04/20 07:00 45 14 140/57 (84) 100 04/04/20 06:00 46 14 138/57 (84) 97 04/04/20 05:00 49 14 143/57 (85) 95 04/04/20 04:45 51 14 97 04/04/20 04:30 56 14 99 04/04/20 04:27 42 14 137/64 (88) 99 04/04/20 04:00 32 04/04/20 04:00 40 04/04/20 04:00 Mechanical Ventilator 04/04/20 03:35 56 14 40 04/04/20 00:00 97.7 53 14 140/62 (88) 100 53 04/04/20 00:00 Mechanical Ventilator 04/04/20 00:00 40 04/04/20 00:00 47 04/03/20 23:00 57 14 40 04/03/20 21:06 98.2 04/03/20 20:35 63 142/65 04/03/20 20:00 Mechanical Ventilator 04/03/20 20:00 98.2 63 14 142/65 (90) 100 63 04/03/20 20:00 40 04/03/20 20:00 56 04/03/20 19:26 56 14 40 04/03/20 16:00 97.9 58 14 139/59 (85) 100 58 04/03/20 16:00 Mechanical Ventilator 04/03/20 16:00 40 04/03/20 14:53 60 14 40 04/03/20 13:19 59 04/03/20 12:00 97.9 62 14 141/72 (95) 97 62 04/03/20 12:00 40 04/03/20 12:00 Mechanical Ventilator 04/03/20 11:08 60 14 40 04/03/20 08:22 78 157/72 04/03/20 08:00 74 04/03/20 08:00 98.2 72 14 157/72 (100) 92 72 04/03/20 08:00 40 04/03/20 08:00 Mechanical Ventilator Intake and Output 04/03/20 04/04/20 19:00 07:00 Intake Total 2705 ml 0 ml Output Total 1 ml Balance 2704 ml 0 ml Intake Free Water 200 ml Tube Feeding 385 ml 0 ml Hemodialysis 2000 ml Other 120 ml Stool Total 1 ml # Bowel Movements 3 3 Laboratory Tests 04/03/20 11:22: POC Whole Blood Glucose [Pending] 04/03/20 17:34: POC Whole Blood Glucose 91 04/04/20 04:30: White Blood Count 6.1, Red Blood Count 2.83L, Hemoglobin 8.7L, Hematocrit 26.1L, Mean Corpuscular Volume 92, Mean Corpuscular Hemoglobin 30.7, Mean Corpuscular Hemoglobin Concent 33.4, Red Cell Distribution Width 13.7, Platelet Count 217, Mean Platelet Volume 6.4L, Neutrophils (%) (Auto) 72.1, Lymphocytes (%) (Auto) 21.7, Monocytes (%) (Auto) 5.1, Eosinophils (%) (Auto) 0.1, Basophils (%) (Auto) 1.0, Sodium Level 141, Potassium Level 3.9, Chloride Level 105, Carbon Dioxide Level 30, Anion Gap 6, Blood Urea Nitrogen 95H, Creatinine 2.5H, Estimat Ruthy merular Filtration Rate 20.6, Glucose Level 150H, Calcium Level 8.4L, Phosphorus Level 3.6, Magnesium Level 2.5H, Total Bilirubin 0.7, Aspartate Amino Transf (AST/SGOT) 42H, Alanine Aminotransferase (ALT/SGPT) 15, Alkaline Phosphatase 128H, C-Reactive Protein, Quantitative 13.1H, Pro-B-Type Natriuretic Peptide > 92235J, Total Protein 5.5L, Albumin 1.2L, Globulin 4.3, Albumin/Globulin Ratio 0.3L Height (Feet): 5 Height (Inches): 3.00 Weight (Pounds): 128 General Appearance: no apparent distress EENT: normal ENT inspection Neck: supple Cardiovascular: normal rate Respiratory/Chest: decreased breath sounds Abdomen: normal bowel sounds, non tender, soft Extremities: non-tender Assessment/Plan Problem List: (1) Hx of CABG ICD Codes: Z95.1 - Presence of aortocoronary bypass graft SNOMED: 947761724, 818644617 (2) History of tracheostomy ICD Codes: Z98.890 - Other specified postprocedural states SNOMED: 507559300, 421970889 (3) PEG (percutaneous endoscopic gastrostomy) status ICD Codes: Z93.1 - Gastrostomy status SNOMED: 582076434, 466485941 (4) Renal failure ICD Codes: N19 - Unspecified kidney failure SNOMED: 69668994, 437389158 (5) Severe anemia ICD Codes: D64.9 - Anemia, unspecified SNOMED: 949422976 Assessment/Plan: s/p EGD gastric ulcer on ppi and carafate fu H&H GTF transferred to icu for abnormal HR GT leak and GTF on hold no GIB plan to change the GT fu labs supportive care Inder Mccauley MD Apr 04, 2020 07:41
--- NOTE | 2020-04-04 08:40 | Infectious Diseases Prog Note ---
Assessment/Plan 49yo F with: MDR Kleb pna bacteremia AMS Anemia to 1.9 on admission 03/02 Leukocytosis to 40, improving GPC bacteremia UTI Pneumonia c/b mod-large R pleural effusion and small L pleural effusion - compressive atelectasis Hypotension 03/02 BCx 1/2 +Staph epi, 12 +Staph haemolyticus (m/l skin colonizers) UA+, UCx >100k P.stuartii (S-angelo) & CRE P.mirablis (R-polyB/colistin, S- tobramycin, per [facility] is "intrinsically resistant to Avycaz/Zerbaxa" not clear why to me and they are unable to elaborate more) COVID rapid neg, PCR neg CXR: Tracheostomy again demonstrated. Interim placement of a right jugular tunneled dialysis catheter. There is infiltrate and volume loss in the left lung, particularly in the perihilar region, suprahilar region, and base. Consolidation at the lung base is similar. The perihilar and suprahilar region consolidation is new. The right lung pleural space are clear. C.dif neg 03/03 BCx NTD 03/06 BCx 2/2 +MDR Kleb pna (arnett-R, including R-polyB, colistin), 02/14 +E.faecium VRE (R-amp, S-linezolid) 03/08 BCx NTD 03/09 CT CAP: Very limited exam, as described, due to massive anasarca. This could limit visualization of the discrete fluid collection such as an abscess. Extensive thoracoabdominal aortic dissection, as described above. Current flap begins just distal to the left subclavian artery origin; per report, there is history of surgical repair so there may have been surgical repair of the ascending thoracic aorta. Bilateral pleural effusions, slightly smaller than on earlier exams. Extensive atelectasis as a result. Extensive pulmonary par enchymal disease as detailed above. This may reflect pneumonia or pulmonary edema or both. Evidence of pulmonary arterial hypertension, with dilatation of the pulmonary artery. Considerable ascites fluid. 03/11 Chest US: Small right, trace left pleural effusions, insufficient for safe thoracentesis AF Sepsis Leukocytosis Hypoxia on vent Pneumonia c/b L pleural effusion (recurrent, prior determined to be transudative) - s/p thora 01/21, 1050cc removed Volume overload, BNP >35,0000, likely 2/2 progressive CKD --> ESRD ?Pancreatitis, Lipase >2000 Acute anemia to 5s CONS bacteremia, ?contaminant Aflutter w/ RVR 01/13 BCx 2/2 +S. epi COVID PCR neg Flu neg CXR: Large left pleural effusion. Bilateral interstitial and airspace infiltrates versus edema MRSA nares neg 01/16 BCx NTD 01/17 BCx /2 +Staph auricularis (skin colonizer) 01/18 Resp cx +MDR CRE PsA (S-gent, I-colistin, R-polyB) (Intermediate to Zerbaxa, Resistant to Avycaz) 01/18 C.dif neg 01/18 CXR: Similar opacification of the left hemithorax likely representing combination of pleural effusion with atelectasis versus pneumonia/edema. Decreased but persistent hazy opacity throughout the right lung may represent edema versus infectious/inflammatory process. 01/20 BCx NTD 01/21 L thora 1050 cc removed, cx NTD 01/25 Wound cx from Gtube site +CRE Kleb pna (arnett-R) and MDR PsA (colonizers) 01/26 CT A/P: Limited exam, due to severe diffuse anasarca. Ascites. Bilateral pleural effusions. Basilar pulmonary atelectatic changes and consolidation. Gastrostomy. Atrophic left kidney with a nephroureteral stents again demonstrated. Possible retrococcygeal decubitus changes. Correlate with clinical findings, consider MRI if there is concern for sacral osteomyelitis. Right hip intertrochanteric fracture, also previously demonstrated. Left femoral dialysis catheter. Nonspecific right lobe liver lesion is unchanged, not well- demonstrated. ctasia bordering on aneurysmal dilatation and possible chronic dissection of the distal thoracic aorta, also previously described. JAVIER on CKD On previous admission Sep-Oct 2019 required HD for short period Going to start HD this admission again R/o COVID 01/14 COVID PCR neg 12/29 neg at [facility] per report H/o UTI 10/15 u/a wbc 30-40, nit neg, leuk +3; ucx ESBL P. mirablis, ESBL M. morganii //20 u/a wbc tnct, nit neg, leuk +3; ucx >100k MDR P. stuarti (S Ceftriaxone, Meropenem) 8/25 u/a wbc tnct, nit neg, leuk ; ucx >100k VRE 10/15/19 u/a wbc tnct; ucx >100k ESBL P. stuarti (S ertapenem, aztreonam) H/o transudative pleural effusion 11/28 Sp Thora (w: 169, PMN: 2%, L: 49% , LDH: 57, prot 2.5); cx Neg H/o PNA 10/15/19 Resp cx ESBL P. mirabilis, MDR P.a. (S only to Gent) 09/22 Resp cx + MDR PsA (S-gent; I-colistin; R-levofloxacin, Zosyn, angelo) 09/16/19 Sp cx ESBL P. mirablis H/o PPM site (pocket) infection and pocket abscess 2ry to S. epi-11/2018, sp >6weeks IV vancomycin 11/27 SP ABBIE: no evidence for vegetation on any of the valves 11/26/18 SP PPM removal: OR findings:The fibrous capsule enclosing the generator was then opened and there was a [id number] amount of yellowish fluid drainage. The generator was then removed.Atrial and ventricular leads were detached. The necrotic tissue of the pocket was then removed and the pocket was flushed with an antibiotic solution. Capsule, wound tissue and lead tip cx: Neg 2d echo: no vegetation seen US chest: 4.6 x 3.4 x 0.9 cm hypoechoic/anechoic area overlying left chest pacemaker power pack. This could represent either a discrete fluid collection or a focal area of very edematous tissue. Infected fluid pocket also possible. 11/18 Bcx 3/4 S. epi; 11/20 Bcx neg; 11/24 Bcx Neg; 11/27 Bcx Neg CAD s/p CABG GERD/gastritis Afib HTN Dysphagia sp GT Aortic dissection s/p repair 2017 S/p PPM Parkinson's Disease Schizophrenia Anxiety COPD Chronic resp failure s/p trach Hx of tracheal bleeding [place] resident ([facility]) VRE and MRSA colonized Plan: Monitor off abx 03/21 SP daptomycin #12, Avycaz #16 for VRE and MDR Kleb bacteremia 03/16 SP tobramycin IV #10 for resistant UTI 03/10/20 SP edson #4 empiric, vanco #9 01/31 SP angelo/inh tobra #10 for pna 01/23 SP vanco IV #10 given CONS/GPC bacteremia 01/16 SP Zosyn #2 01/14 SP dex 10mg in ED 12/10 SP IV Gentamycin #10 12/07 SP Meropenem #10 12/01 SP IV Vancomycin #5 11/28 Sp Cefepime #2 and IV Gentamycin x1 Monitor CBC/CMP Monitor temp curve, hemodynamics Monitor resp status D/w RN Thank you for this consult. [facility] will continue to follow. Subjective Allergies: Coded Allergies: No Known Allergies (Unverified , 10/10/17) Afebrile No Leukocytosis VALENTIN Objective Last 24 Hour Vital Signs Date Time Temp Pulse Resp B/P (MAP) Pulse Ox O2 Delivery O2 Flow Rate FiO2 04/04/20 07:25 43 14 40 04/04/20 07:00 45 14 140/57 (84) 100 04/04/20 06:00 46 14 138/57 (84) 97 04/04/20 05:00 49 14 143/57 (85) 95 04/04/20 04:45 51 14 97 04/04/20 04:30 56 14 99 04/04/20 04:27 42 14 137/64 (88) 99 04/04/20 04:00 32 04/04/20 04:00 40 04/04/20 04:00 Mechanical Ventilator 04/04/20 03:35 56 14 40 04/04/20 00:00 97.7 53 14 140/62 (88) 100 53 04/04/20 00:00 Mechanical Ventilator 04/04/20 00:00 40 04/04/20 00:00 47 04/03/20 23:00 57 14 40 04/03/20 21:06 98.2 04/03/20 20:35 63 142/65 04/03/20 20:00 Mechanical Ventilator 04/03/20 20:00 98.2 63 14 142/65 (90) 100 63 04/03/20 20:00 40 04/03/20 20:00 56 04/03/20 19:26 56 14 40 04/03/20 16:00 97.9 58 14 139/59 (85) 100 58 04/03/20 16:00 Mechanical Ventilator 04/03/20 16:00 40 04/03/20 14:53 60 14 40 2/19/21 13:19 59 04/03/20 12:00 97.9 62 14 141/72 (95) 97 62 04/03/20 12:00 40 04/03/20 12:00 Mechanical Ventilator 04/03/20 11:08 60 14 40 Height (Feet): 5 Height (Inches): 3.00 Weight (Pounds): 128 Gen: NAD HEENT: NCAT, trach Pulm: BL chest rise on vent Abd: Soft, ND, +PEG Ext: No c/c/e Skin: No visible rashes Neuro: Awake, minimally interactive Lines: R chest Permacath dressing c/d/i Laboratory Tests Test 04/03/20 11:22 04/03/20 17:34 04/04/20 04:30 POC Whole Blood Glucose Pending 91 MG/DL (74-106) White Blood Count 6.1 K/UL (4.8-10.8) Red Blood Count 2.83 M/UL (4.20-5.40) L Hemoglobin 8.7 G/DL (12.0-16.0) L Hematocrit 26.1 % (37.0-47.0) L Mean Corpuscular Volume 92 FL (80-99) Mean Corpuscular Hemoglobin 30.7 PG (27.0-31.0) Mean Corpuscular Hemoglobin Concent 33.4 G/DL (32.0-36.0) Red Cell Distribution Width 13.7 % (11.6-14.8) Platelet Count 217 K/UL (150-450) Mean Platelet Volume 6.4 FL (6.5-10.1) L Neutrophils (%) (Auto) 72.1 % (45.0-75.0) Lymphocytes (%) (Auto) 21.7 % (20.0-45.0) Monocytes (%) (Auto) 5.1 % (1.0-10.0) Eosinophils (%) (Auto) 0.1 % (0.0-3.0) Basophils (%) (Auto) 1.0 % (0.0-2.0) Sodium Level 141 MMOL/L (136-145) Potassium Level 3.9 MMOL/L (3.5-5.1) Chloride Level 105 MMOL/L (98-107) Carbon Dioxide Level 30 MMOL/L (21-32) Anion Gap 6 mmol/L (5-15) Blood Urea Nitrogen 95 mg/dL (7-18) H Creatinine 2.5 MG/DL (0.55-1.30) H Estimat Glomerular Filtration Rate 20.6 mL/min (>60) Glucose Level 150 MG/DL (74-106) H Calcium Level 8.4 MG/DL (8.5-10.1) L Phosphorus Level 3.6 MG/DL (2.5-4.9) Magnesium Level 2.5 MG/DL (1.8-2.4) H Total Bilirubin 0.7 MG/DL (0.2-1.0) Aspartate Amino Transf (AST/SGOT) 42 U/L (15-37) H Alanine Aminotransferase (ALT/SGPT) 15 U/L (12-78) Alkaline Phosphatase 128 U/L (46-116) H C-Reactive Protein, Quantitative 13.1 mg/dL (0.00-0.90) H Pro-B-Type Natriuretic Peptide > 74112 pg/mL (0-125) H Total Protein 5.5 G/DL (6.4-8.2) L Albumin 1.2 G/DL (3.4-5.0) L Globulin 4.3 g/dL Albumin/Globulin Ratio 0.3 (1.0-2.7) L Current Medications Medications (Trade) Dose Ordered Sig/Penny Route PRN Reason Start Time Stop Time Status Last Admin Dose Admin Aspirin (ASA) 81 mg DAILY GT 03/07/20 09:00 04/21/20 08:59 04/03/20 08:21 Chlorhexidine Gluconate (Ling-Hex 2%) 1 applic DAILY@1999 TOPIC 03/03/20 20:00 06/01/20 19:59 04/03/20 20:35 Dextrose (Dextrose 50%) 25 ml Q30M PRN IV Hypoglycemia 03/15/20 07:30 06/13/20 07:29 04/04/20 03:43 Dextrose (Dextrose 50%) 50 ml Q30M PRN IV Hypoglycemia 03/15/20 07:30 06/13/20 07:29 Famotidine (Pepcid I.v.) 20 mg Q12HR IVP 03/31/20 21:00 04/30/20 20:59 04/03/20 20:35 Hydralazine HCl (Apresoline) 25 mg Q6H PRN GT For High Blood Pressure 03/02/20 22:00 05/31/20 21:59 Hydrocortisone (Anusol HC) 25 mg Q12HR RECTAL 03/23/20 21:00 06/21/20 08:59 04/03/20 20:35 Hydromorphone HCl (Dilaudid) 0.5 mg Q4H PRN IVP For Pain 04/02/20 20:30 04/09/20 20:29 04/03/20 20:36 Loperamide HCl (Imodium) 2 mg Q6H PRN GT Diarrhea 03/06/20 12:45 04/05/20 12:44 03/06/20 13:01 Metoclopramide HCl (Reglan) 5 mg Q8HR IVP 03/04/20 11:45 05/02/20 11:44 04/04/20 06:14 Sodium Hypochlorite (Dakin's Quarter Strength) 1 applic BEDTIME TOPIC 04/04/20 21:00 05/02/20 08:59 UNV Sucralfate (Carafate) 1 gm EVERY 6 HOURS GT 03/17/20 18:00 06/09/20 08:59 04/04/20 06:14 Tramadol HCl (Ultram) 50 mg Q6H PRN ORAL Moderate Pain (Pain Scale 4-6) 03/26/20 19:30 04/09/20 19:29 04/02/20 22:31 Zinc Oxide (Zinc Oxide) 1 applic Q8HR TOPIC 03/25/20 22:00 06/22/20 17:59 04/04/20 06:14 Deni Gilbert MD Apr 04, 2020 08:40
[2020-04-04] MEDS: Aspirin Baby 81mg GT SCH (09:00)
[2020-04-04] MEDS: Hydrocortisone 25mg supp RECTAL SCH ×2 (09:02→20:52)
--- NOTE | 2020-04-04 09:20 | NUR ---
NURSE NOTES: Pt's BG Checked, 76. Pt does not have IVF running due to history of CKD and on dialysis, also NPO at this time due to G-tube leaking. Pt given D50 via PIV to prevent hypoglycemia, will re-check BG. Pt put on low-intermittent suction via G-tube per MD Mccauley's order. Scheduled aspirin not given due to pt noted to have leaking G-tube site, other scheduled medications given per MD order, pt tolerated well. Will continue to monitor.
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
--- NOTE | 2020-04-04 11:01 | NUR ---
CASE MANAGEMENT:REVIEW 04/04/20 SI: SEPSIS. BACTEREMIA. AORTIC DISSECTION ANEMIA...S/P 15 UNITS PRBC'S. TRACH/VENT/GTUBE. ESRD/HD 97.0 44 13 142/48 98% ON VENT SUPPORT W/40% FIO2 H/H-8.7/26.1 BUN+95 CR+2.5 IS: COREG GT Q8HRS IV DILAUDID Q4HRS PRN ULTRAM GT Q6HRS PRN CARAFATE GT Q6HRS ASA GT QD IV PEPCID Q12 IV REGLAN Q8HRS : NOW IN ICU DCP: FROM [facility] PLAN: CARAFATE FOR GASTRIC ULCER MONITOR H/H
--- NOTE | 2020-04-04 11:38 | NUR ---
NURSE NOTES: Pt's HR still in the 40s, other VS remain stable, afebrile. Safety precautions maintained. Will continue to monitor.
--- NOTE | 2020-04-04 11:56 | Nephrology Progress Note ---
Assessment/Plan Problem List: (1) Renal failure (ARF), acute on chronic (2) Anemia (3) Hyponatremia (4) Respiratory failure Assessment (1) JAVIER (acute kidney injury) (2) Renal failure (ARF), acute on chronic (3) Feeding by G-tube (4) Tracheostomy in place (5) Electrolyte imbalance, hyponatremia (6) Anemia, severe (7) Respiratory failure, acute and chronic (8) history of elevated lipase, pancreatitis (9) Elevated troponin I (10) Sepsis Plan April 04: Patient currently in ICU due to low heart rate. Blood pressure is stable. Dialyzed yesterday. Labs reviewed. Renal parameters and electrolytes stable. Medication list reviewed. Continue per cardiology with regard to bradycardia. April 03: Labs reviewed. We will order dialysis today. Continue per consultants. April 02: Labs reviewed. No need for dialysis today. Continue to monitor renal parameters. April 01: Labs reviewed. Renal parameters stable. No dialysis today. Continue per consultants. March 31: No labs drawn today. Renal parameters stable as of yesterday. Will check lab tomorrow. Dialysis as needed. March 30: Labs reviewed. Low phosphorus addressed. Continue per PMD and consultants. Dialysis as needed. March 29: Dialyzed yesterday. No CHEM panel drawn today. We will continue to monitor renal parameters. Continue per consultants. March 28: Due for dialysis today. Labs reviewed. Stable from renal standpoint of view. March 27: Due for dialysis tomorrow. Labs reviewed. Medication list reviewed. Continue per current management. March 26: Last dialyzed March 24. Labs reviewed. Low phosphorus replaced. Continue to monitor renal parameters. Dialysis as needed. March 25: Dialyzed yesterday. Labs reviewed. Low phosphorus replaced. Continue per current management. Hemoglobin higher. March 24: Labs reviewed. Due for dialysis today. Continue per current management. Hemoglobin lower. Transfusion per sustainability analyst. March 23: Labs reviewed. Dialyzed yesterday. Next dialysis tomorrow. Anemia management per sustainability analyst. March 22: Labs reviewed. Due for dialysis today. Discussed with RN. Agree with discontinuation of the Norman catheter. Hemoglobin lower. Transfusion per sustainability analyst. March 21: Labs reviewed. Will arrange for dialysis tomorrow. Continue per consultants. Will hold phosphorus binders at this time. March 20: Labs reviewed. Patient was dialyzed yesterday. Electrolyte abnormalities corrected. Continue per current management. March 19: Due for dialysis today. Abnormal labs noted. All will be corrected after dialysis. March 18: Labs reviewed. Will dialyze tomorrow. Patient being transfused today. Patient due for abdominal paracentesis. We will keep the Norman in. Continue to monitor renal parameters and dialyze as needed. March 17: No CHEM panel done today. CBC reviewed. Hemoglobin is lowering. Dialyzed yesterday. Will check lab tomorrow. Continue per consultants. March 16: Labs reviewed. Due for dialysis today. Hemoglobin 10.2 today. Continue to monitor renal parameters. March 15: Labs reviewed. Dialyzed March 13. Due for dialysis March 16. Hemoglobin lower. 1 unit of packed RBCs ordered. Per orders. March 14: No labs drawn today. Dialyzed yesterday. Full code. Will check lab tomorrow. Dialysis as needed. March 13: Labs reviewed. Due for dialysis today. Patient remains full code. Continue per current management. March 12: Labs reviewed. Dialyzed yesterday. Due for dialysis tomorrow. Discussed with RN. Patient full code. Continue per current management. March 11: Labs reviewed. Dialyzed this morning. Phosphorus binders dose adjusted. Continue per consultants. Continue to monitor renal parameters. CT: Extensive thoracoabdominal aortic dissection March 10: Labs reviewed. Will order dialysis tomorrow. Phosphorus binders added. Continue per consultants. March 09: No chemistry panel done today. Patient dialyzed yesterday. On dextrose 10% for hypoglycemia. We will check labs tomorrow. Dialysis as needed. March 08: Labs reviewed. Will order dialysis today. Blood sugar low. D10 50 cc an hour started. Continue as is. March 07: Labs reviewed. Dialyzed March 05 and March 06. Continue to monitor renal parameters and hemoglobin. Abnormal electrolytes addressed. IV fluids stopped. Per orders. March 06: Labs reviewed. Dialyzed yesterday. Will reorder dialysis for today. Continue to monitor renal parameters. Hemoglobin 8.4. Patient full code. March 05: Labs reviewed. Patient did not receive dialysis until this morning. Proceed with dialysis. Continue to monitor renal parameters and hemoglobin and hematocrit. March 04: Labs reviewed. Hemoglobin lower. Patient actively bleeding. Was not dialyzed yesterday. Due for GI endoscopy. Continue fluid challenge. Tr ansfusion as needed. Dialysis today. March 03: Labs reviewed. Dialysis ordered. Blood pressure medication all discontinued due to hypotensive state. Albumin bolus given. Continue to monitor renal parameters. Medication list reviewed. Midodrin for low blood pressure ordered Subjective ROS Limited/Unobtainable: Yes Objective Objective Last 24 Hour Vital Signs Date Time Temp Pulse Resp B/P (MAP) Pulse Ox O2 Delivery O2 Flow Rate FiO2 04/04/20 11:00 46 17 130/57 (81) 98 04/04/20 10:52 40 14 40 04/04/20 10:00 41 14 138/50 (79) 98 04/04/20 09:00 44 14 136/55 (82) 99 04/04/20 08:00 97.0 44 13 142/48 (79) 98 04/04/20 08:00 Mechanical Ventilator 04/04/20 08:00 40 04/04/20 07:49 41 04/04/20 07:25 43 14 40 04/04/20 07:00 45 14 140/57 (84) 100 04/04/20 06:00 46 14 138/57 (84) 97 04/04/20 05:00 49 14 143/57 (85) 95 04/04/20 04:45 51 14 97 04/04/20 04:30 56 14 99 04/04/20 04:27 42 14 137/64 (88) 99 04/04/20 04:00 32 04/04/20 04:00 40 04/04/20 04:00 Mechanical Ventilator 04/04/20 03:35 56 14 40 04/04/20 00:00 97.7 53 14 140/62 (88) 100 53 04/04/20 00:00 Mechanical Ventilator 04/04/20 00:00 40 04/04/20 00:00 47 04/03/20 23:00 57 14 40 04/03/20 21:06 98.2 04/03/20 20:35 63 142/65 04/03/20 20:00 Mechanical Ventilator 04/03/20 20:00 98.2 63 14 142/65 (90) 100 63 04/03/20 20:00 40 04/03/20 20:00 56 04/03/20 19:26 56 14 40 04/03/20 16:00 97.9 58 14 139/59 (85) 100 58 04/03/20 16:00 Mechanical Ventilator 04/03/20 16:00 40 04/03/20 14:53 60 14 40 2/19/21 13:19 59 04/03/20 12:00 97.9 62 14 141/72 (95) 97 62 04/03/20 12:00 40 04/03/20 12:00 Mechanical Ventilator Intake and Output 04/03/20 04/04/20 19:00 07:00 Intake Total 2705 ml 0 ml Output Total 1 ml Balance 2704 ml 0 ml Intake Free Water 200 ml Tube Feeding 385 ml 0 ml Hemodialysis 2000 ml Other 120 ml Stool Total 1 ml # Bowel Movements 3 3 Current Medications Medications (Trade) Dose Ordered Sig/Penny Route PRN Reason Start Time Stop Time Status Last Admin Dose Admin Aspirin (ASA) 81 mg DAILY GT 03/07/20 09:00 04/21/20 08:59 04/03/20 08:21 Chlorhexidine Gluconate (Ling-Hex 2%) 1 applic DAILY@1999 TOPIC 03/03/20 20:00 06/01/20 19:59 04/03/20 20:35 Dextrose (Dextrose 50%) 25 ml Q30M PRN IV Hypoglycemia 03/15/20 07:30 06/13/20 07:29 04/04/20 09:35 Dextrose (Dextrose 50%) 50 ml Q30M PRN IV Hypoglycemia 03/15/20 07:30 06/13/20 07:29 Famotidine (Pepcid I.v.) 20 mg Q12HR IVP 03/31/20 21:00 04/30/20 20:59 04/04/20 09:02 Hydralazine HCl (Apresoline) 25 mg Q6H PRN GT For High Blood Pressure 03/02/20 22:00 05/31/20 21:59 Hydrocortisone (Anusol HC) 25 mg Q12HR RECTAL 03/23/20 21:00 06/21/20 08:59 04/04/20 09:02 Hydromorphone HCl (Dilaudid) 0.5 mg Q4H PRN IVP For Pain 04/02/20 20:30 04/09/20 20:29 04/03/20 20:36 Loperamide HCl (Imodium) 2 mg Q6H PRN GT Diarrhea 03/06/20 12:45 04/05/20 12:44 03/06/20 13:01 Metoclopramide HCl (Reglan) 5 mg Q8HR IVP 03/04/20 11:45 05/02/20 11:44 04/04/20 06:14 Sodium Hypochlorite (Dakin's Quarter Strength) 1 applic BEDTIME TOPIC 04/04/20 21:00 05/02/20 08:59 Sucralfate (Carafate) 1 gm EVERY 6 HOURS GT 03/17/20 18:00 06/09/20 08:59 04/04/20 06:14 Tramadol HCl (Ultram) 50 mg Q6H PRN ORAL Moderate Pain (Pain Scale 4-6) 03/26/20 19:30 04/09/20 19:29 04/02/20 22:31 Zinc Oxide (Zinc Oxide) 1 applic Q8HR TOPIC 03/25/20 22:00 06/22/20 17:59 04/04/20 06:14 Laboratory Tests 04/03/20 17:34: POC Whole Blood Glucose 91 04/04/20 04:30: White Blood Count 6.1, Red Blood Count 2.83L, Hemoglobin 8.7L, Hematocrit 26.1L, Mean Corpuscular Volume 92, Mean Corpuscular Hemoglobin 30.7, Mean Corpuscular Hemoglobin Concent 33.4, Red Cell Distribution Width 13.7, Platelet Count 217, Mean Platelet Volume 6.4L, Neutrophils (%) (Auto) 72.1, Lymphocytes (%) (Auto) 21.7, Monocytes (%) (Auto) 5.1, Eosinophils (%) (Auto) 0.1, Basophils (%) (Auto) 1.0, Sodium Level 141, Potassium Level 3.9, Chloride Level 105, Carbon Dioxide Level 30, Anion Gap 6, Blood Urea Nitrogen 95H, Creatinine 2.5H, Estimat Glomerular Filtration Rate 20.6, Glucose Level 150H, Calcium Level 8.4L, Phosphorus Level 3.6, Magnesium Level 2.5H, Total Bilirubin 0.7, Aspartate Amino Transf (AST/SGOT) 42H, Alanine Aminotransferase (ALT/SGPT) 15, Alkaline Phosphatase 128H, C-Reactive Protein, Quantitative 13.1H, Pro-B-Type Natriuretic Peptide > 26672K, Total Protein 5.5L, Albumin 1.2L, Globulin 4.3, Albumin/Globulin Ratio 0.3L Height (Feet): 5 Height (Inches): 3.00 Weight (Pounds): 128 General Appearance: no apparent distress EENT: other - Trach to vent Cardiovascular: bradycardia Respiratory/Chest: decreased breath sounds Abdomen: distended Johnny Houston MD Apr 04, 2020 11:56
--- NOTE | 2020-04-04 11:56 | Pulmonology Progress Note ---
Subjective ROS Limited/Unobtainable: No Interval Events: transferred to ICU for bradycardia Constitutional: Reports: other - resolved HEENT: Repors: no symptoms Respiratory: Reports: no symptoms Cardiovascular: Reports: no symptoms Gastrointestinal/Abdominal: Reports: diarrhea Allergies: Coded Allergies: No Known Allergies (Unverified , 10/10/17) All Systems: reviewed and negative except above Objective Last 24 Hour Vital Signs Date Time Temp Pulse Resp B/P (MAP) Pulse Ox O2 Delivery O2 Flow Rate FiO2 04/04/20 11:00 46 17 130/57 (81) 98 04/04/20 10:52 40 14 40 04/04/20 10:00 41 14 138/50 (79) 98 04/04/20 09:00 44 14 136/55 (82) 99 04/04/20 08:00 97.0 44 13 142/48 (79) 98 04/04/20 08:00 Mechanical Ventilator 04/04/20 08:00 40 04/04/20 07:49 41 04/04/20 07:25 43 14 40 04/04/20 07:00 45 14 140/57 (84) 100 04/04/20 06:00 46 14 138/57 (84) 97 04/04/20 05:00 49 14 143/57 (85) 95 04/04/20 04:45 51 14 97 04/04/20 04:30 56 14 99 04/04/20 04:27 42 14 137/64 (88) 99 04/04/20 04:00 32 04/04/20 04:00 40 04/04/20 04:00 Mechanical Ventilator 04/04/20 03:35 56 14 40 04/04/20 00:00 97.7 53 14 140/62 (88) 100 53 04/04/20 00:00 Mechanical Ventilator 04/04/20 00:00 40 04/04/20 00:00 47 04/03/20 23:00 57 14 40 04/03/20 21:06 98.2 04/03/20 20:35 63 142/65 04/03/20 20:00 Mechanical Ventilator 04/03/20 20:00 98.2 63 14 142/65 (90) 100 63 04/03/20 20:00 40 04/03/20 20:00 56 04/03/20 19:26 56 14 40 04/03/20 16:00 97.9 58 14 139/59 (85) 100 58 04/03/20 16:00 Mechanical Ventilator 04/03/20 16:00 40 04/03/20 14:53 60 14 40 04/03/20 13:19 59 04/03/20 12:00 97.9 62 14 141/72 (95) 97 62 04/03/20 12:00 40 04/03/20 12:00 Mechanical Ventilator Intake and Output 04/03/20 04/04/20 19:00 07:00 Intake Total 2705 ml 0 ml Output Total 1 ml Balance 2704 ml 0 ml Intake Free Water 200 ml Tube Feeding 385 ml 0 ml Hemodialysis 2000 ml Other 120 ml Stool Total 1 ml # Bowel Movements 3 3 General Appearance: no acute distress HEENT: atraumatic Respiratory: lungs clear Cardiovascular: normal rate, regular rhythm Extremities: other - edema bilateral Laboratory Tests 04/03/20 17:34: POC Whole Blood Glucose 91 04/04/20 04:30: White Blood Count 6.1, Red Blood Count 2.83L, Hemoglobin 8.7L, Hematocrit 26.1L, Mean Corpuscular Volume 92, Mean Corpuscular Hemoglobin 30.7, Mean Corpuscular Hemoglobin Concent 33.4, Red Cell Distribution Width 13.7, Platelet Count 217, Mean Platelet Volume 6.4L, Neutrophils (%) (Auto) 72.1, Lymphocytes (%) (Auto) 21.7, Monocytes (%) (Auto) 5.1, Eosinophils (%) (Auto) 0.1, Basophils (%) (Auto) 1.0, Sodium Level 141, Potassium Level 3.9, Chloride Level 105, Carbon Dioxide Level 30, Anion Gap 6, Blood Urea Nitrogen 95H, Creatinine 2.5H, Estimat Glomerular Filtration Rate 20.6, Glucose Level 150H, Calcium Level 8.4L, Phosphorus Level 3.6, Magnesium Level 2.5H, Total Bilirubin 0.7, Aspartate Amino Transf (AST/SGOT) 42H, Alanine Aminotransferase (ALT/SGPT) 15, Alkaline Phosphatase 128H, C-Reactive Protein, Quantitative 13.1H, Pro-B-Type Natriuretic Peptide > 99379X, Total Protein 5.5L, Albumin 1.2L, Globulin 4.3, Albumin/Globulin Ratio 0.3L Current Medications Medications (Trade) Dose Ordered Sig/Penny Route PRN Reason Start Time Stop Time Status Last Admin Dose Admin Aspirin (ASA) 81 mg DAILY GT 03/07/20 09:00 04/21/20 08:59 04/03/20 08:21 Chlorhexidine Gluconate (Ling-Hex 2%) 1 applic DAILY@1999 TOPIC 03/03/20 20:00 06/01/20 19:59 04/03/20 20:35 Dextrose (Dextrose 50%) 25 ml Q30M PRN IV Hypoglycemia 03/15/20 07:30 06/13/20 07:29 04/04/20 09:35 Dextrose (Dextrose 50%) 50 ml Q30M PRN IV Hypoglycemia 03/15/20 07:30 06/13/20 07:29 Famotidine (Pepcid I.v.) 20 mg Q12HR IVP 03/31/20 21:00 04/30/20 20:59 04/04/20 09:02 Hydralazine HCl (Apresoline) 25 mg Q6H PRN GT For High Blood Pressure 03/02/20 22:00 05/31/20 21:59 Hydrocortisone (Anusol HC) 25 mg Q12HR RECTAL 03/23/20 21:00 06/21/20 08:59 04/04/20 09:02 Hydromorphone HCl (Dilaudid) 0.5 mg Q4H PRN IVP For Pain 04/02/20 20:30 04/09/20 20:29 04/03/20 20:36 Loperamide HCl (Imodium) 2 mg Q6H PRN GT Diarrhea 03/06/20 12:45 04/05/20 12:44 03/06/20 13:01 Metoclopramide HCl (Reglan) 5 mg Q8HR IVP 03/04/20 11:45 05/02/20 11:44 04/04/20 06:14 Sodium Hypochlorite (Dakin's Quarter Strength) 1 applic BEDTIME TOPIC 04/04/20 21:00 05/02/20 08:59 Sucralfate (Carafate) 1 gm EVERY 6 HOURS GT 03/17/20 18:00 06/09/20 08:59 04/04/20 06:14 Tramadol HCl (Ultram) 50 mg Q6H PRN ORAL Moderate Pain (Pain Scale 4-6) 03/26/20 19:30 04/09/20 19:29 04/02/20 22:31 Zinc Oxide (Zinc Oxide) 1 applic Q8HR TOPIC 03/25/20 22:00 06/22/20 17:59 04/04/20 06:14 Assessment/Plan Assessment/Plan 1. Chronic respiratory failure. 2. Mechanical ventilation. Continue AC mode; 40% FiO2 saturating well 3. Chronic tracheostomy. 4. Chronic G-tube. 5. Anemia. 6. Renal failure. On HD 7. Leukocytosis and sepsis. Resolved; ID following 8. Sepsis UTI 9. COVID-19 negative 10. Bradycardia; now in ICU 11. Gastric ulcer - on PPI 12. Pleural effusion; on HD 13. Ascites s/p paracentesis (2/3), 2.3L out 14. DVT ppx Elijah Stephen MD Apr 04, 2020 11:56
--- NOTE | 2020-04-04 12:21 | NUR ---
NURSE NOTES: Scheduled sucralfate not given due to pt is still NPO at this time pending G-tube replacement by MD Mccauley today for leaking G-tube site. Pt's BG re-checked, 106. No signs of distress noted. Will continue to monitor.
--- NOTE | 2020-04-04 13:37 | NUR ---
NURSE NOTES: Made MD Houston aware of pt's BG in the low 100s and that pt is still NPO at this time due to pending G-tube replacement. Received order for D10W at 30 mL/hr. Will put in order.
[2020-04-04] MEDS: Dextrose 10% 1,000 ML IV SCH (14:20)
--- NOTE | 2020-04-04 15:41 | NUR ---
INSURANCE CLINICALS/REVIEW FAXED TO [facility] T: [phone] F: [phone]
--- NOTE | 2020-04-04 15:44 | NUR ---
NURSE NOTES: Pt's HR remains in the 40s, other VS stable, afebrile. Safety precautions maintained. will continue to monitor.
--- NOTE | 2020-04-04 17:00 | NUR ---
NURSE NOTES: Pt's wound pictures taken on the sacral area, left buttock, and G-tube site. Wounds cleansed and dressings changed. Oral care provided, bed linens and gown changed. Pt's VS remain stable, no signs of distress noted. Will continue to monitor pt.
--- NOTE | 2020-04-04 19:05 | NUR ---
NURSE HAND-OFF REPORT: Latest Vital Signs: Temperature 97.5 , Pulse 50 , B/P 137 /70 , Respiratory Rate 17 , O2 SAT 99 , Mechanical Ventilator, 30% FiO2. Vital Sign Comment: EKG Rhythm: Sinus Bradycardia Rhythm change?: N MD Notified?: MD Response: Latest [place] Fall Score: 60 Fall Risk: High Risk Safety Measures: Call light Within Reach, Bed Alarm Zone 2, Side Rails Side Rails x3, Bed position Low and Locked. Fall Precautions: Yellow Socks Report given to ERASMO Terrell for continuity of care. Endorsed to awake overnight counselor RN that wound pictures need to be uploaded. Pt stable at this time.
--- NOTE | 2020-04-04 19:30 | NUR ---
NURSE NOTES: RN received report from Nubia Morales. patient resting in bed. patient heart rate 41 but patient is asymptomatic at this time. Patient bp stable. Patient is afebrile. Patient on mechanical vent. with setting of AC 14 tidal volume 500 PEEP 5 anf FIO2 30%. Patient current 02 sats 100%. Patient has gtube at low suction. RN repositioned patient and completed assessment . RN will continue to monitor.
[2020-04-04] MEDS: Dyna-Hex 2% Top Sol 2oz TOPIC SCH (20:14)
[2020-04-04] MEDS: Dakin's 0.125% Soln (Quarter Strength) 16oz TOPIC SCH (20:52)
--- NOTE | 2020-04-04 21:07 | Hematology/Onc Progress Note ---
Assessment/Plan Assessment/Plan IM COVERING # Leukocytosis, now with likely bacteremia, as per ID care --> Cxr: : Large left abiola consolidation/effusion --> wbc 30-->40-->27->30->29-->35->32-->28-->21->10.2-->6.6 --> ABX angelo/vanc-->tobra/edson/vanc-->dapto/ceftazadine->off abx --> smear reviewed --> ID recs are noted # Anemia of chronic disease due to underlying chronic medical issues, multifactorial --> Anemia workup has been reviewed, cw acd --> No evidence of hemolysis is noted, peripheral smear has been reviewed. --> Hgb goal >7. Transfuse prn. --> Epogen required in prior --> Medications have been reviewed --> low threshold for gi evaluation in case has occult + --> hgb 1.9-->5-->7.1-->8.8-->8.1->7.5-> 8.2-->6.8-->9.2-->8.4->7.7-->7.1-->8.8->8.7-->8.2 --> 1 unit prbc1, 2 units 01/15, 03/02, 03/18, 03/24 --> gi eval as needed # Elevated tumor markers, cea and ca 19.9 --> reviewed prior 01/27/20 cat scan a/p --> no masses noted, hold off further extensive w/u # Thrombocytopenia likely reactive v medication induced --> plt 200-->129->91-->86->100->78-->86-->87-->125->135 --> transfuse as needed --> r/o dic, has been ruled out --> anticoag as needed # Coagulopathy with inr 1.5 --> consider vit k/ffp as needed preprocedure --> labs noted # Aortic dissection as seen on Ct ==> when stable, consider transfer hloc # JAVIER initially >2 --> on ivfs --> per renal # Elevated d-dimer, likely infection related --> venous duplex prior neg --> in prior neg # Dysphagia s/p peg --> as per gi # Thoracic aortic dissection --> s/p repair early 2017 # Chronic Resp failure -> s/p trach/vent # Psychiatric history on ativan/haldol # [place] resident # Dvt ppx --> scds The timing of this note does not necessarily reflect the time of the patient was seen. Greatly appreciate consultation. Subjective Allergies: Coded Allergies: No Known Allergies (Unverified , 10/10/17) All Systems: reviewed and negative except above Subjective 03/04 for 1 unit transfusion this am as hgb remains low, wbc better 03/05 egd was done did show large nonbleeding gastric ulcer, high tumor markers 03/06 nv, with davis overnight, bp remains stable, with occult + stool, roman Rn 03/09 nv, remains stable, on vanc/tobra/edson, meds reviewed, no bleeding 03/10 nv, on vent, no bleeding, receiving abx, no night sweats 03/11 nv, dw surgeon and pcp, with aortic dissection to transfer [facility] when stable 03/12 nv, labs reviewed, wbc 21, hgb 7.5, otherwise is comfortable 03/13 nv, labs noted, no bleeding, wbc 13, hgb improved, meds reviewed 03/15 nv, meds reviewed, labs noted, no bleeding, on vent 03/16 nv/tv, peg, meds noted, hgb remains stable, improved to 10 / s/p egd, with gastric ulceration noted, hgb stable / labs noted, hgb 6.8, to get 1 unit prbc, meds reviewed 03/19 hgb 9.2, plt 78, no hemoptysis, is comfortable 03/20 labs reviewed, meds noted, no bleeding, roman rn 03/22 wound treatment, vent, with gtube, labs reviewed, roman rn 03/23 labs reviewed, meds noted, no bleeding, with gt 03/24 large bm overnight that was bloody, hgb 7.1, roman rn 03/25 labs pending this am, comfortable, nsr, meds noted 03/26 nv, vent, with gt, labs reviewed, hgb 8.8 03/27 nv, vent, labs reviewed, with gt, hgb stable 03/29 nv, vent, labs pending, meds reviewed, no bleeding 03/30 nv, t/v, with gt feeds, labs reviewed, meds noted 03/31 nv, t/v, oral secretions were suctioned, meds reviewed 04/01 nv, t/v, labs are reviewed, meds noted, hgb 7.4 04/02 gt leaking, facial grimacing, labs noted, no bleeding, dw rn 04/03 nv, labs noted, no bleeding, roman rn, h/h stable 04/04 nv, labs reviewed, gtube replacement as per Dr. Mccauley Objective Objective Current Medications Medications (Trade) Dose Ordered Sig/Penny Route PRN Reason Start Time Stop Time Status Last Admin Dose Admin Aspirin (ASA) 81 mg DAILY GT 03/07/20 09:00 04/21/20 08:59 04/03/20 08:21 Chlorhexidine Gluconate (Ling-Hex 2%) 1 applic DAILY@2000 TOPIC 03/03/20 20:00 06/01/20 19:59 04/04/20 20:14 Dextrose 1,000 ml @ 30 mls/hr Q24H IV 04/04/20 14:30 05/04/20 14:29 04/04/20 14:20 Dextrose (Dextrose 50%) 25 ml Q30M PRN IV Hypoglycemia 03/15/20 07:30 06/13/20 07:29 04/04/20 09:35 Dextrose (Dextrose 50%) 50 ml Q30M PRN IV Hypoglycemia 03/15/20 07:30 06/13/20 07:29 Famotidine (Pepcid I.v.) 20 mg Q12HR IVP 03/31/20 21:00 04/30/20 20:59 04/04/20 20:52 Hydralazine HCl (Apresoline) 25 mg Q6H PRN GT For High Blood Pressure 03/02/20 22:00 05/31/20 21:59 Hydrocortisone (Anusol HC) 25 mg Q12HR RECTAL 03/23/20 21:00 06/21/20 08:59 04/04/20 20:52 Hydromorphone HCl (Dilaudid) 0.5 mg Q4H PRN IVP For Pain 04/02/20 20:30 04/09/20 20:29 04/03/20 20:36 Loperamide HCl (Imodium) 2 mg Q6H PRN GT Diarrhea 03/06/20 12:45 04/05/20 12:44 03/06/20 13:01 Metoclopramide HCl (Reglan) 5 mg Q8HR IVP 03/04/20 11:45 05/02/20 11:44 04/04/20 14:20 Sodium Hypochlorite (Dakin's Quarter Strength) 1 applic BEDTIME TOPIC 04/04/20 21:00 05/02/20 08:59 04/04/20 20:52 Sucralfate (Carafate) 1 gm EVERY 6 HOURS GT 03/17/20 18:00 06/09/20 08:59 04/04/20 06:14 Tramadol HCl (Ultram) 50 mg Q6H PRN ORAL Moderate Pain (Pain Scale 4-6) 03/26/20 19:30 04/09/20 19:29 04/02/20 22:31 Zinc Oxide (Zinc Oxide) 1 applic Q8HR TOPIC 03/25/20 22:00 06/22/20 17:59 04/04/20 14:20 Last 24 Hour Vital Signs Date Time Temp Pulse Resp B/P (MAP) Pulse Ox O2 Delivery O2 Flow Rate FiO2 04/04/20 20:00 46 17 133/62 (85) 95 04/04/20 20:00 Mechanical Ventilator 04/04/20 20:00 40 04/04/20 19:33 42 14 30 04/04/20 19:00 50 17 137/70 (92) 99 04/04/20 18:39 50 14 30 04/04/20 18:00 44 14 132/57 (82) 100 04/04/20 17:00 46 15 130/91 (104) 97 04/04/20 16:00 46 04/04/20 16:00 40 04/04/20 16:00 Mechanical Ventilator 04/04/20 16:00 97.5 42 14 121/60 (80) 98 04/04/20 15:04 43 04/04/20 15:00 45 15 137/52 (80) 99 04/04/20 14:50 40 14 40 04/04/20 14:00 44 15 134/60 (84) 91 04/04/20 13:00 42 14 126/56 (79) 97 04/04/20 12:00 40 04/04/20 12:00 97.0 40 14 133/60 (84) 100 04/04/20 12:00 Mechanical Ventilator 04/04/20 11:39 40 04/04/20 11:00 46 17 130/57 (81) 98 04/04/20 10:52 40 14 40 04/04/20 10:00 41 14 138/50 (79) 98 04/04/20 09:00 44 14 136/55 (82) 99 04/04/20 08:00 97.0 44 13 142/48 (79) 98 04/04/20 08:00 Mechanical Ventilator 04/04/20 08:00 40 04/04/20 07:49 41 04/04/20 07:25 43 14 40 04/04/20 07:00 45 14 140/57 (84) 100 04/04/20 06:00 46 14 138/57 (84) 97 04/04/20 05:00 49 14 143/57 (85) 95 04/04/20 04:45 51 14 97 04/04/20 04:30 56 14 99 04/04/20 04:27 42 14 137/64 (88) 99 04/04/20 04:00 32 04/04/20 04:00 40 04/04/20 04:00 Mechanical Ventilator 04/04/20 03:35 56 14 40 04/04/20 00:00 97.7 53 14 140/62 (88) 100 53 04/04/20 00:00 Mechanical Ventilator 04/04/20 00:00 40 04/04/20 00:00 47 04/03/20 23:00 57 14 40 04/03/20 21:06 98.2 04/03/20 20:35 63 142/65 04/03/20 20:00 Mechanical Ventilator 04/03/20 20:00 98.2 63 14 142/65 (90) 100 63 04/03/20 20:00 40 04/03/20 20:00 56 04/03/20 19:26 56 14 40 04/03/20 16:00 97.9 58 14 139/59 (85) 100 58 04/03/20 16:00 Mechanical Ventilator 04/03/20 16:00 40 04/03/20 14:53 60 14 40 04/03/20 13:19 59 2/19/21 12:00 97.9 62 14 141/72 (95) 97 62 04/03/20 12:00 40 04/03/20 12:00 Mechanical Ventilator 04/03/20 11:08 60 14 40 04/03/20 08:22 78 157/72 04/03/20 08:00 74 04/03/20 08:00 98.2 72 14 157/72 (100) 92 72 04/03/20 08:00 40 04/03/20 08:00 Mechanical Ventilator 04/03/20 07:05 50 14 40 04/03/20 04:00 98.2 74 15 144/86 (105) 94 74 04/03/20 04:00 71 04/03/20 04:00 40 04/03/20 04:00 Mechanical Ventilator 04/03/20 03:33 99.4 04/03/20 03:00 73 14 40 04/03/20 00:00 76 04/03/20 00:00 Mechanical Ventilator 04/03/20 00:00 99.1 74 17 148/97 (114) 74 04/02/20 23:01 97.8 04/02/20 23:00 75 22 40 04/02/20 21:26 97.7 Intake and Output 04/03/20 04/04/20 19:00 07:00 Intake Total 2705 ml 0 ml Output Total 1 ml Balance 2704 ml 0 ml Intake Free Water 200 ml Tube Feeding 385 ml 0 ml Hemodialysis 2000 ml Other 120 ml Stool Total 1 ml # Bowel Movements 3 3 Labs Test 04/01/20 23:16 04/02/20 03:17 04/02/20 05:14 04/02/20 11:53 White Blood Count 7.7 K/UL (4.8-10.8) Red Blood Count 3.00 M/UL (4.20-5.40) Hemoglobin 9.1 G/DL (12.0-16.0) Hematocrit 27.2 % (37.0-47.0) Mean Corpuscular Volume 91 FL (80-99) Mean Corpuscular Hemoglobin 30.4 PG (27.0-31.0) Mean Corpuscular Hemoglobin Concent 33.5 G/DL (32.0-36.0) Red Cell Distribution Width 13.6 % (11.6-14.8) Platelet Count 201 K/UL (150-450) Mean Platelet Volume 6.5 FL (6.5-10.1) Neutrophils (%) (Auto) 73.3 % (45.0-75.0) Lymphocytes (%) (Auto) 20.2 % (20.0-45.0) Monocytes (%) (Auto) 5.3 % (1.0-10.0) Eosinophils (%) (Auto) 0.1 % (0.0-3.0) Basophils (%) (Auto) 1.1 % (0.0-2.0) Sodium Level 140 MMOL/L (136-145) Potassium Level 3.8 MMOL/L (3.5-5.1) Chloride Level 103 MMOL/L (98-107) Carbon Dioxide Level 29 MMOL/L (21-32) Anion Gap 8 mmol/L (5-15) Blood Urea Nitrogen 108 mg/dL (7-18) Creatinine 2.8 MG/DL (0.55-1.30) Estimat Glomerular Filtration Rate 18.1 mL/min (>60) Glucose Level 88 MG/DL (74-106) Calcium Level 8.2 MG/DL (8.5-10.1) POC Whole Blood Glucose 91 MG/DL (74-106) Test 04/03/20 04:50 04/03/20 06:19 04/03/20 11:22 04/03/20 17:34 White Blood Count 7.2 K/UL (4.8-10.8) Red Blood Count 2.74 M/UL (4.20-5.40) Hemoglobin 8.2 G/DL (12.0-16.0) Hematocrit 24.9 % (37.0-47.0) Mean Corpuscular Volume 91 FL (80-99) Mean Corpuscular Hemoglobin 29.8 PG (27.0-31.0) Mean Corpuscular Hemoglobin Concent 32.8 G/DL (32.0-36.0) Red Cell Distribution Width 13.6 % (11.6-14.8) Platelet Count 201 K/UL (150-450) Mean Platelet Volume 6.0 FL (6.5-10.1) Neutrophils (%) (Auto) 71.9 % (45.0-75.0) Lymphocytes (%) (Auto) 22.2 % (20.0-45.0) Monocytes (%) (Auto) 5.0 % (1.0-10.0) Eosinophils (%) (Auto) 0.1 % (0.0-3.0) Basophils (%) (Auto) 0.9 % (0.0-2.0) Sodium Level 139 MMOL/L (136-145) Potassium Level 3.5 MMOL/L (3.5-5.1) Chloride Level 102 MMOL/L (98-107) Carbon Dioxide Level 28 MMOL/L (21-32) Anion Gap 9 mmol/L (5-15) Blood Urea Nitrogen 116 mg/dL (7-18) Creatinine 3.0 MG/DL (0.55-1.30) Estimat Glomerular Filtration Rate 16.7 mL/min (>60) Glucose Level 93 MG/DL (74-106) Uric Acid 5.7 MG/DL (2.6-7.2) Calcium Level 8.1 MG/DL (8.5-10.1) Phosphorus Level 3.4 MG/DL (2.5-4.9) Magnesium Level 2.5 MG/DL (1.8-2.4) Total Bilirubin 0.6 MG/DL (0.2-1.0) Aspartate Amino Transf (AST/SGOT) 33 U/L (15-37) Alanine Aminotransferase (ALT/SGPT) 14 U/L (12-78) Alkaline Phosphatase 133 U/L (46-116) C-Reactive Protein, Quantitative 12.5 mg/dL (0.00-0.90) Pro-B-Type Natriuretic Peptide > 33052 pg/mL (0-125) Total Protein 5.4 G/DL (6.4-8.2) Albumin 1.2 G/DL (3.4-5.0) Globulin 4.2 g/dL Albumin/Globulin Ratio 0.3 (1.0-2.7) POC Whole Blood Glucose 91 MG/DL (74-106) Test 04/04/20 04:30 04/04/20 17:19 White Blood Count 6.1 K/UL (4.8-10.8) Red Blood Count 2.83 M/UL (4.20-5.40) Hemoglobin 8.7 G/DL (12.0-16.0) Hematocrit 26.1 % (37.0-47.0) Mean Corpuscular Volume 92 FL (80-99) Mean Corpuscular Hemoglobin 30.7 PG (27.0-31.0) Mean Corpuscular Hemoglobin Concent 33.4 G/DL (32.0-36.0) Red Cell Distribution Width 13.7 % (11.6-14.8) Platelet Count 217 K/UL (150-450) Mean Platelet Volume 6.4 FL (6.5-10.1) Neutrophils (%) (Auto) 72.1 % (45.0-75.0) Lymphocytes (%) (Auto) 21.7 % (20.0-45.0) Monocytes (%) (Auto) 5.1 % (1.0-10.0) Eosinophils (%) (Auto) 0.1 % (0.0-3.0) Basophils (%) (Auto) 1.0 % (0.0-2.0) Sodium Level 141 MMOL/L (136-145) Potassium Level 3.9 MMOL/L (3.5-5.1) Chloride Level 105 MMOL/L (98-107) Carbon Dioxide Level 30 MMOL/L (21-32) Anion Gap 6 mmol/L (5-15) Blood Urea Nitrogen 95 mg/dL (7-18) Creatinine 2.5 MG/DL (0.55-1.30) Estimat Glomerular Filtration Rate 20.6 mL/min (>60) Glucose Level 150 MG/DL (74-106) Calcium Level 8.4 MG/DL (8.5-10.1) Phosphorus Level 3.6 MG/DL (2.5-4.9) Magnesium Level 2.5 MG/DL (1.8-2.4) Total Bilirubin 0.7 MG/DL (0.2-1.0) Aspartate Amino Transf (AST/SGOT) 42 U/L (15-37) Alanine Aminotransferase (ALT/SGPT) 15 U/L (12-78) Alkaline Phosphatase 128 U/L (46-116) C-Reactive Protein, Quantitative 13.1 mg/dL (0.00-0.90) Pro-B-Type Natriuretic Peptide > 59673 pg/mL (0-125) Total Protein 5.5 G/DL (6.4-8.2) Albumin 1.2 G/DL (3.4-5.0) Globulin 4.3 g/dL Albumin/Globulin Ratio 0.3 (1.0-2.7) Arterial Blood pH 7.609 (7.350-7.450) Arterial Blood Partial Pressure CO2 28.9 mmHg (35.0-45.0) Arterial Blood Partial Pressure O2 216.3 mmHg (75.0-100.0) Arterial Blood HCO3 28.3 mmol/L (22.0-26.0) Arterial Blood Oxygen Saturation 98.4 % (95-100) Arterial Blood Base Excess 6.9 (-2-2) Rojas Test Positive Height (Feet): 5 Height (Inches): 3.00 Weight (Pounds): 128 Objective Physical Exam: Vitals: reviewed General: NAD HEENT: nc, at Neck: supple ++trach/vent Chest: clear breath sounds bilaterally Cardiovascular: RRR, no s3, s4 Abdomen: soft, nontender, nd +gtube Extremities: no cce, normal range of motion Neuro: alert Evan Muhammad MD Apr 04, 2020 21:07
--- NOTE | 2020-04-04 22:00 | NUR ---
Patient vitals stable. but HR still in the 40s. Patient sleeping. Patient repositioned. RN will continue to monitor.
[2020-04-04] MEDS: HYDROmorphone 1mg/ml Carpuject IVP PRN (23:30)
[2020-04-05] VITALS (23 sets, daily range): BP systolic 116–140; BP diastolic 48–74
--- NOTE | 2020-04-05 | NUR ---
Patient vitals stable. Patient showing s/s of pain. Dialudid 0.5 given PRN. Patient repositioned for comfort. Blood glucose 76. Patient asymptomatic. D10 infusing @30ml/hr. RN will continue to monitor.
--- NOTE | 2020-04-05 02:00 | NUR ---
NURSE NOTES: Patient sleeping. Patient repositioned. Oral care completed. RN will continue to monitor.
--- NOTE | 2020-04-05 04:30 | NUR ---
NURSE NOTES: Patient vitals stable. RN completed bath. RN changed dressing to wounds and gtube sites. Patient repositioned for comfort. RN will continue to monitor.
[2020-04-05] MEDS: Sucralfate 1gm tab GT SCH ×4 (04:53→23:06)
[2020-04-05] MEDS: Zinc Oxide Oint 2oz TOPIC SCH ×3 (04:53→21:27)
[2020-04-05] MEDS: Metoclopramide 10mg/2ml Inj IVP SCH ×3 (05:55→21:00)
--- NOTE | 2020-04-05 06:49 | Hematology/Onc Progress Note ---
Assessment/Plan Assessment/Plan IM COVERING # Leukocytosis, now with likely bacteremia, as per ID care --> Cxr: : Large left abiola consolidation/effusion --> wbc 30-->40-->27->30->29-->35->32-->28-->21->10.2-->6.6 --> ABX angelo/vanc-->tobra/edson/vanc-->dapto/ceftazadine->off abx --> smear reviewed --> ID recs are noted # Anemia of chronic disease due to underlying chronic medical issues, multifactorial --> Anemia workup has been reviewed, cw acd --> No evidence of hemolysis is noted, peripheral smear has been reviewed. --> Hgb goal >7. Transfuse prn. --> Epogen required in prior --> Medications have been reviewed --> low threshold for gi evaluation in case has occult + --> hgb 1.9-->5-->7.1-->8.8-->8.1->7.5-> 8.2-->6.8-->9.2-->8.4->7.7-->7.1-->8.8->8.7-->8.2 --> 1 unit prbc1, 2 units 01/15, 03/02, 03/18, 03/24 --> gi eval as needed # Elevated tumor markers, cea and ca 19.9 --> reviewed prior 01/27/20 cat scan a/p --> no masses noted, hold off further extensive w/u # Thrombocytopenia likely reactive v medication induced --> plt 200-->129->91-->86->100->78-->86-->87-->125->135 --> transfuse as needed --> r/o dic, has been ruled out --> anticoag as needed # Coagulopathy with inr 1.5 --> consider vit k/ffp as needed preprocedure --> labs noted # Aortic dissection as seen on Ct ==> when stable, consider transfer hloc # JAVIER initially >2 --> on ivfs --> per renal # Elevated d-dimer, likely infection related --> venous duplex prior neg --> in prior neg # Dysphagia s/p peg --> as per gi # Thoracic aortic dissection --> s/p repair early 2017 # Chronic Resp failure -> s/p trach/vent # Psychiatric history on ativan/haldol # [place] resident # Dvt ppx --> scds The timing of this note does not necessarily reflect the time of the patient was seen. Greatly appreciate consultation. Subjective Allergies: Coded Allergies: No Known Allergies (Unverified , 10/10/17) All Systems: reviewed and negative except above Subjective 03/04 for 1 unit transfusion this am as hgb remains low, wbc better 03/05 egd was done did show large nonbleeding gastric ulcer, high tumor markers 03/06 nv, with davis overnight, bp remains stable, with occult + stool, roman Rn 03/09 nv, remains stable, on vanc/tobra/edson, meds reviewed, no bleeding 03/10 nv, on vent, no bleeding, receiving abx, no night sweats 03/11 nv, dw surgeon and pcp, with aortic dissection to transfer [facility] when stable 03/12 nv, labs reviewed, wbc 21, hgb 7.5, otherwise is comfortable 03/13 nv, labs noted, no bleeding, wbc 13, hgb improved, meds reviewed 03/15 nv, meds reviewed, labs noted, no bleeding, on vent 03/16 nv/tv, peg, meds noted, hgb remains stable, improved to 10 / s/p egd, with gastric ulceration noted, hgb stable / labs noted, hgb 6.8, to get 1 unit prbc, meds reviewed 03/19 hgb 9.2, plt 78, no hemoptysis, is comfortable 03/20 labs reviewed, meds noted, no bleeding, roman rn 03/22 wound treatment, vent, with gtube, labs reviewed, roman rn 03/23 labs reviewed, meds noted, no bleeding, with gt 03/24 large bm overnight that was bloody, hgb 7.1, roman rn 03/25 labs pending this am, comfortable, nsr, meds noted 03/26 nv, vent, with gt, labs reviewed, hgb 8.8 03/27 nv, vent, labs reviewed, with gt, hgb stable 03/29 nv, vent, labs pending, meds reviewed, no bleeding 03/30 nv, t/v, with gt feeds, labs reviewed, meds noted 03/31 nv, t/v, oral secretions were suctioned, meds reviewed 04/01 nv, t/v, labs are reviewed, meds noted, hgb 7.4 04/02 gt leaking, facial grimacing, labs noted, no bleeding, dw rn 04/03 nv, labs noted, no bleeding, roman rn, h/h stable 04/04 nv, labs reviewed, gtube replacement as per Dr. Mccauley 04/05 nv, labs reviewed, meds noted no bleeding, roman rn Objective Objective Current Medications Medications (Trade) Dose Ordered Sig/Penny Route PRN Reason Start Time Stop Time Status Last Admin Dose Admin Aspirin (ASA) 81 mg DAILY GT 03/07/20 09:00 04/21/20 08:59 04/03/20 08:21 Chlorhexidine Gluconate (Ling-Hex 2%) 1 applic DAILY@2000 TOPIC 03/03/20 20:00 06/01/20 19:59 04/04/20 20:14 Dextrose 1,000 ml @ 30 mls/hr Q24H IV 04/04/20 14:30 05/04/20 14:29 04/04/20 14:20 Dextrose (Dextrose 50%) 25 ml Q30M PRN IV Hypoglycemia 03/15/20 07:30 06/13/20 07:29 04/04/20 09:35 Dextrose (Dextrose 50%) 50 ml Q30M PRN IV Hypoglycemia 03/15/20 07:30 06/13/20 07:29 Famotidine (Pepcid I.v.) 20 mg Q12HR IVP 03/31/20 21:00 04/30/20 20:59 04/04/20 20:52 Hydralazine HCl (Apresoline) 25 mg Q6H PRN GT For High Blood Pressure 03/02/20 22:00 05/31/20 21:59 Hydrocortisone (Anusol HC) 25 mg Q12HR RECTAL 03/23/20 21:00 06/21/20 08:59 04/04/20 20:52 Hydromorphone HCl (Dilaudid) 0.5 mg Q4H PRN IVP For Pain 04/02/20 20:30 04/09/20 20:29 04/04/20 23:30 Loperamide HCl (Imodium) 2 mg Q6H PRN GT Diarrhea 03/06/20 12:45 04/05/20 12:44 03/06/20 13:01 Metoclopramide HCl (Reglan) 5 mg Q8HR IVP 03/04/20 11:45 05/02/20 11:44 04/05/20 05:55 Sodium Hypochlorite (Dakin's Quarter Strength) 1 applic BEDTIME TOPIC 04/04/20 21:00 05/02/20 08:59 04/04/20 20:52 Sucralfate (Carafate) 1 gm EVERY 6 HOURS GT 03/17/20 18:00 06/09/20 08:59 04/04/20 06:14 Tramadol HCl (Ultram) 50 mg Q6H PRN ORAL Moderate Pain (Pain Scale 4-6) 03/26/20 19:30 04/09/20 19:29 04/02/20 22:31 Zinc Oxide (Zinc Oxide) 1 applic Q8HR TOPIC 03/25/20 22:00 06/22/20 17:59 04/05/20 04:53 Last 24 Hour Vital Signs Date Time Temp Pulse Resp B/P (MAP) Pulse Ox O2 Delivery O2 Flow Rate FiO2 04/05/20 06:00 48 14 99 04/05/20 05:00 50 17 133/60 (84) 100 04/05/20 04:00 43 14 124/55 (78) 100 04/05/20 04:00 44 04/05/20 04:00 40 04/05/20 04:00 Mechanical Ventilator 04/05/20 03:00 40 14 125/54 (77) 100 04/05/20 02:00 40 14 117/54 (75) 100 04/05/20 01:44 40 14 30 04/05/20 01:00 39 14 124/55 (78) 100 04/05/20 00:00 40 04/05/20 00:00 97.9 04/05/20 00:00 39 14 116/57 (76) 100 04/05/20 00:00 39 04/05/20 00:00 Mechanical Ventilator 04/04/20 23:00 48 14 132/57 (82) 100 04/04/20 22:00 44 14 124/61 (82) 100 04/04/20 21:00 41 14 135/59 (84) 90 04/04/20 20:00 46 17 133/62 (85) 95 04/04/20 20:00 44 04/04/20 20:00 Mechanical Ventilator 04/04/20 20:00 40 04/04/20 19:33 42 14 30 04/04/20 19:00 50 17 137/70 (92) 99 04/04/20 18:39 50 14 30 04/04/20 18:00 44 14 132/57 (82) 100 04/04/20 17:00 46 15 130/91 (104) 97 04/04/20 16:00 46 04/04/20 16:00 40 04/04/20 16:00 Mechanical Ventilator 04/04/20 16:00 97.5 42 14 121/60 (80) 98 04/04/20 15:04 43 04/04/20 15:00 45 15 137/52 (80) 99 04/04/20 14:50 40 14 40 04/04/20 14:00 44 15 134/60 (84) 91 04/04/20 13:00 42 14 126/56 (79) 97 04/04/20 12:00 40 04/04/20 12:00 97.0 40 14 133/60 (84) 100 04/04/20 12:00 Mechanical Ventilator 04/04/20 11:39 40 04/04/20 11:00 46 17 130/57 (81) 98 04/04/20 10:52 40 14 40 04/04/20 10:00 41 14 138/50 (79) 98 04/04/20 09:00 44 14 136/55 (82) 99 04/04/20 08:00 97.0 44 13 142/48 (79) 98 04/04/20 08:00 Mechanical Ventilator 04/04/20 08:00 40 04/04/20 07:49 41 04/04/20 07:25 43 14 40 04/04/20 07:00 45 14 140/57 (84) 100 04/04/20 06:00 46 14 138/57 (84) 97 04/04/20 05:00 49 14 143/57 (85) 95 04/04/20 04:45 51 14 97 04/04/20 04:30 56 14 99 04/04/20 04:27 42 14 137/64 (88) 99 04/04/20 04:00 32 04/04/20 04:00 40 04/04/20 04:00 Mechanical Ventilator 04/04/20 03:35 56 14 40 04/04/20 00:00 97.7 53 14 140/62 (88) 100 53 04/04/20 00:00 Mechanical Ventilator 04/04/20 00:00 40 04/04/20 00:00 47 04/03/20 23:00 57 14 40 04/03/20 21:06 98.2 04/03/20 20:35 63 142/65 04/03/20 20:00 Mechanical Ventilator 04/03/20 20:00 98.2 63 14 142/65 (90) 100 63 04/03/20 20:00 40 04/03/20 20:00 56 04/03/20 19:26 56 14 40 04/03/20 16:00 97.9 58 14 139/59 (85) 100 58 04/03/20 16:00 Mechanical Ventilator 04/03/20 16:00 40 04/03/20 14:53 60 14 40 04/03/20 13:19 59 04/03/20 12:00 97.9 62 14 141/72 (95) 97 62 04/03/20 12:00 40 04/03/20 12:00 Mechanical Ventilator 04/03/20 11:08 60 14 40 04/03/20 08:22 78 157/72 04/03/20 08:00 74 04/03/20 08:00 98.2 72 14 157/72 (100) 92 72 04/03/20 08:00 40 04/03/20 08:00 Mechanical Ventilator 04/03/20 07:05 50 14 40 Intake and Output 04/04/20 04/05/20 19:00 07:00 Intake Total 140 ml 0 ml Output Total 10 ml 0 ml Balance 130 ml 0 ml IV Total 140 ml Tube Feeding 0 ml 0 ml Output Urine Total 0 ml 0 ml Gastric Drainage Total 10 ml # Bowel Movements 3 3 Labs Test 04/02/20 11:53 04/03/20 04:50 04/03/20 06:19 04/03/20 11:22 POC Whole Blood Glucose 91 MG/DL (74-106) White Blood Count 7.2 K/UL (4.8-10.8) Red Blood Count 2.74 M/UL (4.20-5.40) Hemoglobin 8.2 G/DL (12.0-16.0) Hematocrit 24.9 % (37.0-47.0) Mean Corpuscular Volume 91 FL (80-99) Mean Corpuscular Hemoglobin 29.8 PG (27.0-31.0) Mean Corpuscular Hemoglobin Concent 32.8 G/DL (32.0-36.0) Red Cell Distribution Width 13.6 % (11.6-14.8) Platelet Count 201 K/UL (150-450) Mean Platelet Volume 6.0 FL (6.5-10.1) Neutrophils (%) (Auto) 71.9 % (45.0-75.0) Lymphocytes (%) (Auto) 22.2 % (20.0-45.0) Monocytes (%) (Auto) 5.0 % (1.0-10.0) Eosinophils (%) (Auto) 0.1 % (0.0-3.0) Basophils (%) (Auto) 0.9 % (0.0-2.0) Sodium Level 139 MMOL/L (136-145) Potassium Level 3.5 MMOL/L (3.5-5.1) Chloride Level 102 MMOL/L (98-107) Carbon Dioxide Level 28 MMOL/L (21-32) Anion Gap 9 mmol/L (5-15) Blood Urea Nitrogen 116 mg/dL (7-18) Creatinine 3.0 MG/DL (0.55-1.30) Estimat Glomerular Filtration Rate 16.7 mL/min (>60) Glucose Level 93 MG/DL (74-106) Uric Acid 5.7 MG/DL (2.6-7.2) Calcium Level 8.1 MG/DL (8.5-10.1) Phosphorus Level 3.4 MG/DL (2.5-4.9) Magnesium Level 2.5 MG/DL (1.8-2.4) Total Bilirubin 0.6 MG/DL (0.2-1.0) Aspartate Amino Transf (AST/SGOT) 33 U/L (15-37) Alanine Aminotransferase (ALT/SGPT) 14 U/L (12-78) Alkaline Phosphatase 133 U/L (46-116) C-Reactive Protein, Quantitative 12.5 mg/dL (0.00-0.90) Pro-B-Type Natriuretic Peptide > 87233 pg/mL (0-125) Total Protein 5.4 G/DL (6.4-8.2) Albumin 1.2 G/DL (3.4-5.0) Globulin 4.2 g/dL Albumin/Globulin Ratio 0.3 (1.0-2.7) Test 04/03/20 17:34 04/04/20 04:30 04/04/20 17:19 POC Whole Blood Glucose 91 MG/DL (74-106) White Blood Count 6.1 K/UL (4.8-10.8) Red Blood Count 2.83 M/UL (4.20-5.40) Hemoglobin 8.7 G/DL (12.0-16.0) Hematocrit 26.1 % (37.0-47.0) Mean Corpuscular Volume 92 FL (80-99) Mean Corpuscular Hemoglobin 30.7 PG (27.0-31.0) Mean Corpuscular Hemoglobin Concent 33.4 G/DL (32.0-36.0) Red Cell Distribution Width 13.7 % (11.6-14.8) Platelet Count 217 K/UL (150-450) Mean Platelet Volume 6.4 FL (6.5-10.1) Neutrophils (%) (Auto) 72.1 % (45.0-75.0) Lymphocytes (%) (Auto) 21.7 % (20.0-45.0) Monocytes (%) (Auto) 5.1 % (1.0-10.0) Eosinophils (%) (Auto) 0.1 % (0.0-3.0) Basophils (%) (Auto) 1.0 % (0.0-2.0) Sodium Level 141 MMOL/L (136-145) Potassium Level 3.9 MMOL/L (3.5-5.1) Chloride Level 105 MMOL/L (98-107) Carbon Dioxide Level 30 MMOL/L (21-32) Anion Gap 6 mmol/L (5-15) Blood Urea Nitrogen 95 mg/dL (7-18) Creatinine 2.5 MG/DL (0.55-1.30) Estimat Glomerular Filtration Rate 20.6 mL/min (>60) Glucose Level 150 MG/DL (74-106) Calcium Level 8.4 MG/DL (8.5-10.1) Phosphorus Level 3.6 MG/DL (2.5-4.9) Magnesium Level 2.5 MG/DL (1.8-2.4) Total Bilirubin 0.7 MG/DL (0.2-1.0) Aspartate Amino Transf (AST/SGOT) 42 U/L (15-37) Alanine Aminotransferase (ALT/SGPT) 15 U/L (12-78) Alkaline Phosphatase 128 U/L (46-116) C-Reactive Protein, Quantitative 13.1 mg/dL (0.00-0.90) Pro-B-Type Natriuretic Peptide > 85938 pg/mL (0-125) Total Protein 5.5 G/DL (6.4-8.2) Albumin 1.2 G/DL (3.4-5.0) Globulin 4.3 g/dL Albumin/Globulin Ratio 0.3 (1.0-2.7) Arterial Blood pH 7.609 (7.350-7.450) Arterial Blood Partial Pressure CO2 28.9 mmHg (35.0-45.0) Arterial Blood Partial Pressure O2 216.3 mmHg (75.0-100.0) Arterial Blood HCO3 28.3 mmol/L (22.0-26.0) Arterial Blood Oxygen Saturation 98.4 % (95-100) Arterial Blood Base Excess 6.9 (-2-2) Rojas Test Positive Height (Feet): 5 Height (Inches): 3.00 Weight (Pounds): 128 Objective Physical Exam: Vitals: reviewed General: NAD HEENT: nc, at Neck: supple ++trach/vent Chest: clear breath sounds bilaterally Cardiovascular: RRR, no s3, s4 Abdomen: soft, nontender, nd +gtube Extremities: no cce, normal range of motion Neuro: alert Evan Muhammad MD Apr 05, 2020 06:49
--- NOTE | 2020-04-05 07:28 | NUR ---
NURSE NOTES: updated report given to Sergio PonceRN
--- NOTE | 2020-04-05 07:29 | NUR ---
NURSE NOTES: Received bedside report from HIEU Livingston. Pt AAOX1, opens eyes spontaneously, nonverbal. Pt SB on the varnish melter, HR between 30-45, MD Willams aware per prior RN. Pt trached to vent, Vidya 7, vent settings: A/C 14, T/V 500, FiO2 30%, Peep 5, O2 sat between 95-100%. Pt has G-tube, yellow green drainage noted leaking from site, MD Mccauley already aware. Pt kept NPO at this time due to G-tube leak and excoriation noted around G-tube site. Pt oliguric. Skin alteration noted in chart and covered with optifoam. Pt has left FA 20g and Right hand 22g PIV, no signs of infection or complication noted from sites. Pt has Right Chest Permacath for hemodialysis, no signs of infection or complication noted, dressing clean dry and intact. HOB at 30 degrees. Bed rails up, bed locked and in lowest position. Safety precautions maintained. Will continue to monitor.
[2020-04-05] MEDS: Hydrocortisone 25mg supp RECTAL SCH ×2 (08:20→20:27)
[2020-04-05] MEDS: Aspirin Baby 81mg GT SCH (08:20)
--- NOTE | 2020-04-05 08:20 | Pulmonology Progress Note ---
Subjective ROS Limited/Unobtainable: Yes Interval Events: Now in ICU for bradycardia Constitutional: Reports: other - resolved HEENT: Repors: no symptoms Respiratory: Reports: no symptoms Cardiovascular: Reports: no symptoms Gastrointestinal/Abdominal: Reports: diarrhea Allergies: Coded Allergies: No Known Allergies (Unverified , 10/10/17) All Systems: reviewed and negative except above Objective Last 24 Hour Vital Signs Date Time Temp Pulse Resp B/P (MAP) Pulse Ox O2 Delivery O2 Flow Rate FiO2 04/05/20 07:15 49 14 30 04/05/20 07:00 40 14 119/72 (88) 100 04/05/20 06:00 48 14 99 04/05/20 05:00 50 17 133/60 (84) 100 04/05/20 04:00 43 14 124/55 (78) 100 04/05/20 04:00 44 04/05/20 04:00 40 04/05/20 04:00 Mechanical Ventilator 04/05/20 03:00 40 14 125/54 (77) 100 04/05/20 02:00 40 14 117/54 (75) 100 04/05/20 01:44 40 14 30 04/05/20 01:00 39 14 124/55 (78) 100 04/05/20 00:00 40 04/05/20 00:00 97.9 04/05/20 00:00 39 14 116/57 (76) 100 04/05/20 00:00 39 04/05/20 00:00 Mechanical Ventilator 04/04/20 23:00 48 14 132/57 (82) 100 04/04/20 22:00 44 14 124/61 (82) 100 04/04/20 21:00 41 14 135/59 (84) 90 04/04/20 20:00 46 17 133/62 (85) 95 04/04/20 20:00 44 04/04/20 20:00 Mechanical Ventilator 04/04/20 20:00 40 04/04/20 19:33 42 14 30 04/04/20 19:00 50 17 137/70 (92) 99 04/04/20 18:39 50 14 30 04/04/20 18:00 44 14 132/57 (82) 100 04/04/20 17:00 46 15 130/91 (104) 97 04/04/20 16:00 46 04/04/20 16:00 40 04/04/20 16:00 Mechanical Ventilator 04/04/20 16:00 97.5 42 14 121/60 (80) 98 04/04/20 15:04 43 04/04/20 15:00 45 15 137/52 (80) 99 04/04/20 14:50 40 14 40 04/04/20 14:00 44 15 134/60 (84) 91 04/04/20 13:00 42 14 126/56 (79) 97 04/04/20 12:00 40 04/04/20 12:00 97.0 40 14 133/60 (84) 100 04/04/20 12:00 Mechanical Ventilator 04/04/20 11:39 40 04/04/20 11:00 46 17 130/57 (81) 98 04/04/20 10:52 40 14 40 04/04/20 10:00 41 14 138/50 (79) 98 04/04/20 09:00 44 14 136/55 (82) 99 Intake and Output 04/04/20 04/05/20 19:00 07:00 Intake Total 140 ml 30 ml Output Total 10 ml 0 ml Balance 130 ml 30 ml IV Total 140 ml 30 ml Tube Feeding 0 ml 0 ml Output Urine Total 0 ml 0 ml Gastric Drainage Total 10 ml # Bowel Movements 3 3 General Appearance: no acute distress HEENT: atraumatic, status post trach Respiratory: lungs clear Cardiovascular: normal rate, regular rhythm Extremities: other - edema bilateral Laboratory Tests 04/04/20 17:19: Arterial Blood pH 7.609*H, Arterial Blood Partial Pressure CO2 28.9L, Arterial Blood Partial Pressure O2 216.3H, Arterial Blood HCO3 28.3H, Arterial Blood O xygen Saturation 98.4, Arterial Blood Base Excess 6.9H, Rojas Test Positive Current Medications Medications (Trade) Dose Ordered Sig/Penny Route PRN Reason Start Time Stop Time Status Last Admin Dose Admin Aspirin (ASA) 81 mg DAILY GT 03/07/20 09:00 04/21/20 08:59 04/03/20 08:21 Chlorhexidine Gluconate (Ling-Hex 2%) 1 applic DAILY@2000 TOPIC 03/03/20 20:00 06/01/20 19:59 04/04/20 20:14 Dextrose 1,000 ml @ 30 mls/hr Q24H IV 04/04/20 14:30 05/04/20 14:29 04/04/20 14:20 Dextrose (Dextrose 50%) 25 ml Q30M PRN IV Hypoglycemia 03/15/20 07:30 06/13/20 07:29 04/04/20 09:35 Dextrose (Dextrose 50%) 50 ml Q30M PRN IV Hypoglycemia 03/15/20 07:30 06/13/20 07:29 Famotidine (Pepcid I.v.) 20 mg Q12HR IVP 03/31/20 21:00 04/30/20 20:59 04/04/20 20:52 Hydralazine HCl (Apresoline) 25 mg Q6H PRN GT For High Blood Pressure 03/02/20 22:00 05/31/20 21:59 Hydrocortisone (Anusol HC) 25 mg Q12HR RECTAL 03/23/20 21:00 06/21/20 08:59 04/04/20 20:52 Hydromorphone HCl (Dilaudid) 0.5 mg Q4H PRN IVP For Pain 04/02/20 20:30 04/09/20 20:29 04/04/20 23:30 Loperamide HCl (Imodium) 2 mg Q6H PRN GT Diarrhea 03/06/20 12:45 04/05/20 12:44 03/06/20 13:01 Metoclopramide HCl (Reglan) 5 mg Q8HR IVP 03/04/20 11:45 05/02/20 11:44 04/05/20 05:55 Sodium Hypochlorite (Dakin's Quarter Strength) 1 applic BEDTIME TOPIC 04/04/20 21:00 05/02/20 08:59 04/04/20 20:52 Sucralfate (Carafate) 1 gm EVERY 6 HOURS GT 03/17/20 18:00 06/09/20 08:59 04/04/20 06:14 Tramadol HCl (Ultram) 50 mg Q6H PRN ORAL Moderate Pain (Pain Scale 4-6) 03/26/20 19:30 04/09/20 19:29 04/02/20 22:31 Zinc Oxide (Zinc Oxide) 1 applic Q8HR TOPIC 03/25/20 22:00 06/22/20 17:59 04/05/20 04:53 Assessment/Plan Assessment/Plan 1. Chronic respiratory failure. 2. Mechanical ventilation. Continue AC mode; 40% FiO2 saturating well 3. Chronic tracheostomy. 4. Chronic G-tube. 5. Anemia. 6. Renal failure. On HD 7. Leukocytosis and sepsis. Resolved; ID following 8. Sepsis UTI 9. COVID-19 negative 10. Bradycardia; now in ICU 11. Gastric ulcer - on PPI 12. Pleural effusion; on HD 13. Ascites s/p paracentesis (2/3), 2.3L out 14. DVT ppx Elijah Stephen MD Apr 05, 2020 08:20
--- NOTE | 2020-04-05 08:45 | NUR ---
NURSE NOTES: Scheduled aspirin not given due to planned G-tube replacement by MD Mccauley today. Other scheduled medications given per MD order, pt tolerated well. Pt's VSS, afebrile. Will continue to monitor.
--- NOTE | 2020-04-05 09:10 | NUR ---
NURSE NOTES: Pt's BG checked, 60, pt asymptomatic. Pt given D50 IVP per MD order. Will recheck BG.
--- NOTE | 2020-04-05 09:24 | General Progress Note ---
Subjective ROS Limited/Unobtainable: No Allergies: Coded Allergies: No Known Allergies (Unverified , 10/10/17) Objective Last 24 Hour Vital Signs Date Time Temp Pulse Resp B/P (MAP) Pulse Ox O2 Delivery O2 Flow Rate FiO2 04/05/20 07:15 49 14 30 04/05/20 07:00 40 14 119/72 (88) 100 04/05/20 06:00 48 14 99 04/05/20 05:00 50 17 133/60 (84) 100 04/05/20 04:00 43 14 124/55 (78) 100 04/05/20 04:00 44 04/05/20 04:00 40 04/05/20 04:00 Mechanical Ventilator 04/05/20 03:00 40 14 125/54 (77) 100 04/05/20 02:00 40 14 117/54 (75) 100 04/05/20 01:44 40 14 30 04/05/20 01:00 39 14 124/55 (78) 100 04/05/20 00:00 40 04/05/20 00:00 97.9 04/05/20 00:00 39 14 116/57 (76) 100 04/05/20 00:00 39 04/05/20 00:00 Mechanical Ventilator 04/04/20 23:00 48 14 132/57 (82) 100 04/04/20 22:00 44 14 124/61 (82) 100 04/04/20 21:00 41 14 135/59 (84) 90 04/04/20 20:00 46 17 133/62 (85) 95 04/04/20 20:00 44 04/04/20 20:00 Mechanical Ventilator 04/04/20 20:00 40 04/04/20 19:33 42 14 30 04/04/20 19:00 50 17 137/70 (92) 99 04/04/20 18:39 50 14 30 04/04/20 18:00 44 14 132/57 (82) 100 04/04/20 17:00 46 15 130/91 (104) 97 04/04/20 16:00 46 04/04/20 16:00 40 04/04/20 16:00 Mechanical Ventilator 04/04/20 16:00 97.5 42 14 121/60 (80) 98 04/04/20 15:04 43 04/04/20 15:00 45 15 137/52 (80) 99 04/04/20 14:50 40 14 40 04/04/20 14:00 44 15 134/60 (84) 91 04/04/20 13:00 42 14 126/56 (79) 97 04/04/20 12:00 40 04/04/20 12:00 97.0 40 14 133/60 (84) 100 04/04/20 12:00 Mechanical Ventilator 04/04/20 11:39 40 04/04/20 11:00 46 17 130/57 (81) 98 04/04/20 10:52 40 14 40 04/04/20 10:00 41 14 138/50 (79) 98 Intake and Output 04/04/20 04/05/20 19:00 07:00 Intake Total 140 ml 30 ml Output Total 10 ml 0 ml Balance 130 ml 30 ml IV Total 140 ml 30 ml Tube Feeding 0 ml 0 ml Output Urine Total 0 ml 0 ml Gastric Drainage Total 10 ml # Bowel Movements 3 3 Laboratory Tests 04/04/20 17:19: Arterial Blood pH 7.609*H, Arterial Blood Partial Pressure CO2 28.9L, Arterial Blood Partial Pressure O2 216.3H, Arterial Blood HCO3 28.3H, Arterial Blood Oxygen Saturation 98.4, Arterial Blood Base Excess 6.9H, Rojas Test Positive 04/05/20 09:06: Arterial Blood pH 7.554*H, Arterial Blood Partial Pressure CO2 27.7L, Arterial Blood Partial Pressure O2 89.7, Arterial Blood HCO3 23.9, Arterial Blood Oxygen Saturation 95.9, Arterial Blood Base Excess 1.8, Rojas Test Positive Height (Feet): 5 Height (Inches): 3.00 Weight (Pounds): 128 General Appearance: no apparent distress EENT: normal ENT inspection Neck: supple Cardiovascular: normal rate Respiratory/Chest: decreased breath sounds Abdomen: hypoactive bowel sounds Extremities: non-tender Assessment/Plan Problem List: (1) Hx of CABG ICD Codes: Z95.1 - Presence of aortocoronary bypass graft SNOMED: 046642675, 540994802 (2) History of tracheostomy ICD Codes: Z98.890 - Other specified postprocedural states SNOMED: 304146658, 318006725 (3) PEG (percutaneous endoscopic gastrostomy) status ICD Codes: Z93.1 - Gastrostomy status SNOMED: 091778726, 973855305 (4) Renal failure ICD Codes: N19 - Unspecified kidney failure SNOMED: 56576158, 250459225 (5) Severe anemia ICD Codes: D64.9 - Anemia, unspecified SNOMED: 459143240 Assessment/Plan: s/p EGD gastric ulcer on ppi and carafate fu H&H GTF transferred to icu for abnormal HR GT leak and GTF on hold no GIB GT changed at the bedside today fu labs supportive care Inder Mccauley MD Apr 05, 2020 09:24
--- NOTE | 2020-04-05 09:25 | NUR ---
NURSE NOTES: MD Mccauley at bedside and changed pt's G-tube to 22 fr. Per MD Mccauley, no need to order KUB, OK to use G-tube immediately for medications and tube feeding. Intermittent low-suction via G-tube discontinued by MD Mccauley. Will continue to monitor.
--- NOTE | 2020-04-05 09:25 | NUR ---
NURSE NOTES: Pt's BG re-checked, 156. Will continue to monitor pt.
--- NOTE | 2020-04-05 10:00 | NUR ---
NURSE NOTES: G-tube placement checked, auscultated, tube in proper place. Nepro started at 10mL/hr per MD order, pt tolerating well. Safety precautions maintained. Will continue to monitor.
[2020-04-05 11:27] LABS: HEMATOCRIT 23.8 % (37.0-47.0); HEMOGLOBIN 7.8 G/DL (12.0-16.0); MEAN CORPUSCULAR VOLUME 90 FL (80-99); PLATELET COUNT 234 K/UL (150-450); RED BLOOD COUNT 2.64 M/UL (4.20-5.40); RED CELL DISTRIBUTION WIDTH 13.7 % (11.6-14.8); WHITE BLOOD COUNT 5.5 K/UL (4.8-10.8)
[2020-04-05 11:35] LABS: CALCIUM 8.1 MG/DL (8.5-10.1); CREATININE 2.8 MG/DL (0.55-1.30); POTASSIUM 4.1 MMOL/L (3.5-5.1)
--- NOTE | 2020-04-05 11:50 | NUR ---
NURSE NOTES: Tube feeding residual checked, no residual noted. Scheduled medication given per MD order, pt tolerated well. Pt's HR still in the 40s but asymptomatic, other VSS, no signs of distress noted. Safety precautions maintained. Will continue to monitor.
--- NOTE | 2020-04-05 13:07 | Nephrology Progress Note ---
Assessment/Plan Problem List: (1) Renal failure (ARF), acute on chronic (2) Anemia (3) Hyponatremia (4) Respiratory failure Assessment (1) JAVIER (acute kidney injury) (2) Renal failure (ARF), acute on chronic (3) Feeding by G-tube (4) Tracheostomy in place (5) Electrolyte imbalance, hyponatremia (6) Anemia, severe (7) Respiratory failure, acute and chronic (8) history of elevated lipase, pancreatitis (9) Elevated troponin I (10) Sepsis Plan April 05: Remains in ICU. Low heart rate persists. Will initiate low-dose hydralazine with blood pressure parameters. Last dialysis April 03. Blood sugar stable on 30 mL of D10 hourly. GT feeding started. Continue to monitor electrolytes renal parameters and arrange for dialysis as needed. April 04: Patient currently in ICU due to low heart rate. Blood pressure is stable. Dialyzed yesterday. Labs reviewed. Renal parameters and electrolytes stable. Medication list reviewed. Continue per cardiology with regard to bradycardia. April 03: Labs reviewed. We will order dialysis today. Continue per consu ltants. April 02: Labs reviewed. No need for dialysis today. Continue to monitor renal parameters. April 01: Labs reviewed. Renal parameters stable. No dialysis today. Continue per consultants. March 31: No labs drawn today. Renal parameters stable as of yesterday. Will check lab tomorrow. Dialysis as needed. March 30: Labs reviewed. Low phosphorus addressed. Continue per PMD and consultants. Dialysis as needed. March 29: Dialyzed yesterday. No CHEM panel drawn today. We will continue to monitor renal parameters. Continue per consultants. March 28: Due for dialysis today. Labs reviewed. Stable from renal standpoint of view. March 27: Due for dialysis tomorrow. Labs reviewed. Medication list reviewed. Continue per current management. March 26: Last dialyzed March 24. Labs reviewed. Low phosphorus replaced. Continue to monitor renal parameters. Dialysis as needed. March 25: Dialyzed yesterday. Labs reviewed. Low phosphorus replaced. Continue per current management. Hemoglobin higher. March 24: Labs reviewed. Due for dialysis today. Continue per current management. Hemoglobin lower. Transfusion per solar thermal installer. March 23: Labs reviewed. Dialyzed yesterday. Next dialysis tomorrow. Anemia management per solar thermal installer. March 22: Labs reviewed. Due for dialysis today. Discussed with RN. Agree with discontinuation of the Norman catheter. Hemoglobin lower. Transfusion per solar thermal installer. March 21: Labs reviewed. Will arrange for dialysis tomorrow. Continue per consultants. Will hold phosphorus binders at this time. March 20: Labs reviewed. Patient was dialyzed yesterday. Electrolyte abnormalities corrected. Continue per current management. March 19: Due for dialysis today. Abnormal labs noted. All will be corrected after dialysis. March 18: Labs reviewed. Will dialyze tomorrow. Patient being transfused today. Patient due for abdominal paracentesis. We will keep the Norman in. Continue to monitor renal parameters and dialyze as needed. March 17: No CHEM panel done today. CBC reviewed. Hemoglobin is lowering. Dialyzed yesterday. Will check lab tomorrow. Continue per consultants. March 16: Labs reviewed. Due for dialysis today. Hemoglobin 10.2 today. Continue to monitor renal parameters. March 15: Labs reviewed. Dialyzed March 13. Due for dialysis March 16. Hemoglobin lower. 1 unit of packed RBCs ordered. Per orders. March 14: No labs drawn today. Dialyzed yesterday. Full code. Will check lab tomorrow. Dialysis as needed. March 13: Labs reviewed. Due for dialysis today. Patient remains full code. Continue per current management. March 12: Labs reviewed. Dialyzed yesterday. Due for dialysis tomorrow. Discussed with RN. Patient full code. Continue per current management. March 11: Labs reviewed. Dialyzed this morning. Phosphorus binders dose adjusted. Continue per consultants. Continue to monitor renal parameters. CT: Extensive thoracoabdominal aortic dissection March 10: Labs reviewed. Will order dialysis tomorrow. Phosphorus binders added. Continue per consultants. March 09: No chemistry panel done today. Patient dialyzed yesterday. On dextrose 10% for hypoglycemia. We will check labs tomorrow. Dialysis as needed. March 08: Labs reviewed. Will order dialysis today. Blood sugar low. D10 50 cc an hour started. Continue as is. March 07: Labs reviewed. Dialyzed March 05 and March 06. Continue to monitor renal parameters and hemoglobin. Abnormal electrolytes addressed. IV fluids stopped. Per orders. March 06: Labs reviewed. Dialyzed yesterday. Will reorder dialysis for today. Continue to monitor renal parameters. Hemoglobin 8.4. Patient full code. March 05: Labs reviewed. Patient did not receive dialysis until this morning. Proceed with dialysis. Continue to monitor renal parameters and hemoglobin and hematocrit. March 04: Labs reviewed. Hemoglobin lower. Patient actively bleeding. Was not dialyzed yesterday. Due for GI endoscopy. Continue fluid challenge. Transfusion as needed. Dialysis today. March 03: Labs reviewed. Dialysis ordered. Blood pressure medication all discontinued due to hypotensive state. Albumin bolus given. Continue to monitor renal parameters. Medication list reviewed. Midodrin for low blood pressure ordered Subjective ROS Limited/Unobtainable: Yes Objective Objective Last 24 Hour Vital Signs Date Time Temp Pulse Resp B/P (MAP) Pulse Ox O2 Delivery O2 Flow Rate FiO2 04/05/20 12:00 97.4 51 14 133/55 (81) 100 04/05/20 12:00 Mechanical Ventilator 04/05/20 12:00 30 04/05/20 11:23 49 04/05/20 11:00 43 14 136/53 (80) 100 04/05/20 10:45 38 14 30 04/05/20 10:00 43 15 131/53 (79) 100 04/05/20 09:00 47 18 131/54 (79) 100 04/05/20 08:11 46 04/05/20 08:00 Mechanical Ventilator 04/05/20 08:00 97.3 43 14 127/60 (82) 100 04/05/20 08:00 30 04/05/20 07:15 49 14 30 04/05/20 07:00 40 14 119/72 (88) 100 04/05/20 06:00 48 14 99 04/05/20 05:00 50 17 133/60 (84) 100 04/05/20 04:00 43 14 124/55 (78) 100 04/05/20 04:00 44 04/05/20 04:00 40 04/05/20 04:00 Mechanical Ventilator 04/05/20 03:00 40 14 125/54 (77) 100 04/05/20 02:00 40 14 117/54 (75) 100 04/05/20 01:44 40 14 30 04/05/20 01:00 39 14 124/55 (78) 100 04/05/20 00:00 40 04/05/20 00:00 97.9 04/05/20 00:00 39 14 116/57 (76) 100 04/05/20 00:00 39 04/05/20 00:00 Mechanical Ventilator 04/04/20 23:00 48 14 132/57 (82) 100 04/04/20 22:00 44 14 124/61 (82) 100 04/04/20 21:00 41 14 135/59 (84) 90 04/04/20 20:00 46 17 133/62 (85) 95 04/04/20 20:00 44 04/04/20 20:00 Mechanical Ventilator 04/04/20 20:00 40 04/04/20 19:33 42 14 30 04/04/20 19:00 50 17 137/70 (92) 99 04/04/20 18:39 50 14 30 04/04/20 18:00 44 14 132/57 (82) 100 04/04/20 17:00 46 15 130/91 (104) 97 04/04/20 16:00 46 04/04/20 16:00 40 04/04/20 16:00 Mechanical Ventilator 04/04/20 16:00 97.5 42 14 121/60 (80) 98 04/04/20 15:04 43 04/04/20 15:00 45 15 137/52 (80) 99 04/04/20 14:50 40 14 40 04/04/20 14:00 44 15 134/60 (84) 91 Intake and Output 04/04/20 04/05/20 19:00 07:00 Intake Total 140 ml 30 ml Output Total 10 ml 0 ml Balance 130 ml 30 ml IV Total 140 ml 30 ml Tube Feeding 0 ml 0 ml Output Urine Total 0 ml 0 ml Gastric Drainage Total 10 ml # Bowel Movements 3 3 Current Medications Medications (Trade) Dose Ordered Sig/Penny Route PRN Reason Start Time Stop Time Status Last Admin Dose Admin Aspirin (ASA) 81 mg DAILY GT 03/07/20 09:00 04/21/20 08:59 04/03/20 08:21 Chlorhexidine Gluconate (Ling-Hex 2%) 1 applic DAILY@2000 TOPIC 03/03/20 20:00 06/01/20 19:59 04/04/20 20:14 Dextrose 1,000 ml @ 30 mls/hr Q24H IV 04/04/20 14:30 05/04/20 14:29 04/04/20 14:20 Dextrose (Dextrose 50%) 25 ml Q30M PRN IV Hypoglycemia 03/15/20 07:30 06/13/20 07:29 04/05/20 09:08 Dextrose (Dextrose 50%) 50 ml Q30M PRN IV Hypoglycemia 03/15/20 07:30 06/13/20 07:29 Famotidine (Pepcid I.v.) 20 mg Q12HR IVP 03/31/20 21:00 04/30/20 20:59 04/05/20 08:19 Hydralazine HCl (Apresoline) 25 mg Q6H PRN GT For High Blood Pressure 03/02/20 22:00 05/31/20 21:59 Hydrocortisone (Anusol HC) 25 mg Q12HR RECTAL 03/23/20 21:00 06/21/20 08:59 04/05/20 08:20 Hydromorphone HCl (Dilaudid) 0.5 mg Q4H PRN IVP For Pain 04/02/20 20:30 04/09/20 20:29 04/04/20 23:30 Metoclopramide HCl (Reglan) 5 mg Q8HR IVP 03/04/20 11:45 05/02/20 11:44 04/05/20 05:55 Sodium Hypochlorite (Dakin's Quarter Strength) 1 applic BEDTIME TOPIC 04/04/20 21:00 05/02/20 08:59 04/04/20 20:52 Sucralfate (Carafate) 1 gm EVERY 6 HOURS GT 03/17/20 18:00 06/09/20 08:59 04/05/20 11:41 Tramadol HCl (Ultram) 50 mg Q6H PRN ORAL Moderate Pain (Pain Scale 4-6) 03/26/20 19:30 04/09/20 19:29 04/02/20 22:31 Zinc Oxide (Zinc Oxide) 1 applic Q8HR TOPIC 03/25/20 22:00 06/22/20 17:59 04/05/20 04:53 Laboratory Tests 04/04/20 17:19: Arterial Blood pH 7.609*H, Arterial Blood Partial Pressure CO2 28.9L, Arterial Blood Partial Pressure O2 216.3H, Arterial Blood HCO3 28.3H, Arterial Blood Oxygen Saturation 98.4, Arterial Blood Base Excess 6.9H, Rojas Test Positive 04/05/20 09:06: Arterial Blood pH 7.554*H, Arterial Blood Partial Pressure CO2 27.7L, Arterial Blood Partial Pressure O2 89.7, Arterial Blood HCO3 23.9, Arterial Blood Oxygen Saturation 95.9, Arterial Blood Base Excess 1.8, Rojas Test Positive 04/05/20 11:10: White Blood Count 5.5, Red Blood Count 2.64L, Hemoglobin 7.8L, Hematocrit 23.8L, Mean Corpuscular Volume 90, Mean Corpuscular Hemoglobin 29.6, Mean Corpuscular Hemoglobin Concent 32.9, Red Cell Distribution Width 13.7, Platelet Count 234, Mean Platelet Volume 6.1L, Neutrophils (%) (Auto) , Lymphocytes (%) (Auto) , Monocytes (%) (Auto) , Eosinophils (%) (Auto) , Basophils (%) (Auto) , Differential Total Cells Counted 100, Neutrophils % (Manual) 64, Lymphocytes % (Manual) 26, Monocytes % (Manual) 9, Eosinophils % (Manual) 1, Basophils % (Manual) 0, Band Neutrophils 0, Platelet Estimate Adequate, Platelet Morphology Normal, Hypochromasia 1+, Sodium Level 141, Potassium Level 4.1, Chloride Level 104, Carbon Dioxide Level 25, Anion Gap 12, Blood Urea Nitrogen 114H, Creatinine 2.8H, Estimat Glomerular Filtration Rate 18.1, Glucose Level 95, Calcium Level 8.1L Height (Feet): 5 Height (Inches): 3.00 Weight (Pounds): 128 General Appearance: no apparent distress Cardiovascular: bradycardia Respiratory/Chest: decreased breath sounds Abdomen: distended Johnny Houston MD Apr 05, 2020 13:07
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
--- NOTE | 2020-04-05 13:53 | NUR ---
NURSE NOTES: Pt's VSS, afebrile, no signs of distress noted. Safety precautions maintained. Will continue to monitor.
[2020-04-05] MEDS: HydrALAZINE 10mg Tab GT SCH ×3 (14:15→23:06)
[2020-04-05] MEDS: HYDROmorphone 1mg/ml Carpuject IVP PRN (14:16)
[2020-04-05] MEDS: Dextrose 10% 1,000 ML IV SCH (14:18)
--- NOTE | 2020-04-05 15:35 | NUR ---
NURSE NOTES: Pt's VS remain stable, no signs of distress noted. Pt calm and sleeping at this time, chest rise and fall visibly noted. Safety precautions maintained. Will continue to monitor.
--- NOTE | 2020-04-05 17:00 | NUR ---
NURSE NOTES: Pt given bed bath, linens and gown changed, oral care provided. Pt's VS remain stable, no signs of distress noted. Safety precautions maintained. Will continue to monitor.
--- NOTE | 2020-04-05 19:05 | NUR ---
NURSE HAND-OFF REPORT: Latest Vital Signs: Temperature 97.8 , Pulse 52 , B/P 139 /54 , Respiratory Rate 18 , O2 SAT 100 , Mechanical Ventilator, FiO2 30%. Vital Sign Comment: EKG Rhythm: Sinus Bradycardia Rhythm change?: N MD Notified?: MD Response: Latest Chavarria Fall Score: 60 Fall Risk: High Risk Safety Measures: Call light Within Reach, Bed Alarm Zone 2, Side Rails Side Rails x3, Bed position Low and Locked. Fall Precautions: Yellow Socks Report given to Zena Harmon RN for continuity of care. Pt stable. .
--- NOTE | 2020-04-05 19:06 | NUR ---
NURSE NOTES: received pt from Nubia Hawk RN., pt is resting on the bed, AOx1. SB at this time HR ranges from 40-50s. vent is marquise 7. AC 14, TV 500, Fiow 30% Peep 5. no s/s of respiratory distress at this time. Gtube site is new, gauge in place, no residual noted at this time. Nephro is running at 30ml/hr. PermCath on right chest noted, left FA 20g right hand 20G IV sites are intact, clean, and patent as well. D10W is running at 30ml/hr. call light within reach. will continue to monitor pt with plan of care. bed at the lowest position, alarmed, and locked.
[2020-04-05] MEDS: Dyna-Hex 2% Top Sol 2oz TOPIC SCH (20:26)
[2020-04-05] MEDS: Dakin's 0.125% Soln (Quarter Strength) 16oz TOPIC SCH (20:27)
--- NOTE | 2020-04-05 20:31 | Cardiology Report ---
APPROVED REPORT EKG Measurement Heart [id number] <Conclusion> Normal sinus rhythm Rightward axis Anterior infarct, age undetermined T wave abnormality, consider inferior ischemia Abnormal ECG
--- NOTE | 2020-04-05 21:00 | NUR ---
NURSE NOTES: oral suctioned, pt is resting on the bed. SB noted.
--- NOTE | 2020-04-05 22:10 | NUR ---
NURSE NOTES: repositioned pt, oral suctioned. pt is stable at this time. call light within reach.
--- NOTE | 2020-04-05 22:29 | Cardiology Progress Note ---
Subjective DATE OF SERVICE: Apr 04, 2020 (Late entry) Transferred to ICU early this morning with low heart rates. No associated hypotension. BP parameterg were trending upward, but improved with discontinuation of midodrine. CT scan revealed extensive thoracoabd aortic dissection- Chase Type B Dialysis per renal Pt is s/p paracentesis (50cc) Objective Last 24 Hour Vital Signs Date Time Temp Pulse Resp B/P (MAP) Pulse Ox O2 Delivery O2 Flow Rate FiO2 04/05/20 21:00 47 14 131/65 (87) 100 04/05/20 20:36 45 14 30 04/05/20 20:00 Mechanical Ventilator 04/05/20 20:00 30 04/05/20 20:00 97.8 50 14 140/58 (85) 100 04/05/20 19:30 40 14 30 04/05/20 19:00 52 18 139/54 (82) 100 04/05/20 18:00 42 14 124/57 (79) 100 04/05/20 17:55 129/55 04/05/20 17:00 41 14 129/55 (79) 100 04/05/20 16:00 Mechanical Ventilator 04/05/20 16:00 43 04/05/20 16:00 97.8 42 14 123/57 (79) 100 04/05/20 16:00 30 04/05/20 15:00 42 15 131/68 (89) 100 04/05/20 14:52 41 14 30 04/05/20 14:15 127/56 04/05/20 14:00 42 14 127/56 (79) 100 04/05/20 13:00 42 14 135/48 (77) 100 04/05/20 12:00 97.4 51 14 133/55 (81) 100 04/05/20 12:00 Mechanical Ventilator 04/05/20 12:00 30 04/05/20 11:23 49 04/05/20 11:00 43 14 136/53 (80) 100 04/05/20 10:45 38 14 30 04/05/20 10:00 43 15 131/53 (79) 100 04/05/20 09:00 47 18 131/54 (79) 100 04/05/20 08:11 46 04/05/20 08:00 Mechanical Ventilator 04/05/20 08:00 97.3 43 14 127/60 (82) 100 04/05/20 08:00 30 04/05/20 07:15 49 14 30 04/05/20 07:00 40 14 119/72 (88) 100 04/05/20 06:00 48 14 99 04/05/20 05:00 50 17 133/60 (84) 100 04/05/20 04:00 43 14 124/55 (78) 100 04/05/20 04:00 44 04/05/20 04:00 40 04/05/20 04:00 Mechanical Ventilator 04/05/20 03:00 40 14 125/54 (77) 100 04/05/20 02:00 40 14 117/54 (75) 100 04/05/20 01:44 40 14 30 04/05/20 01:00 39 14 124/55 (78) 100 04/05/20 00:00 40 04/05/20 00:00 97.9 04/05/20 00:00 39 14 116/57 (76) 100 04/05/20 00:00 39 04/05/20 00:00 Mechanical Ventilator 04/04/20 23:00 48 14 132/57 (82) 100 HEENT: Thin Trach secretions RHYTHM: NSR, SB LUNGS: bilateral rhonchi - few, trach site clean CARDIAC: normal rate, regular rhythm, normal S1 and S2 ABDOMEN: normal bowel sounds, non tender, soft, G-Tube intact EXTREMITIES: normal range of motion, non-tender, normal inspection Laboratory Tests Test 04/05/20 09:06 04/05/20 11:10 Arterial Blood pH 7.554 (7.350-7.450) Arterial Blood Partial Pressure CO2 27.7 mmHg (35.0-45.0) L Arterial Blood Partial Pressure O2 89.7 mmHg (75.0-100.0) Arterial Blood HCO3 23.9 mmol/L (22.0-26.0) Arterial Blood Oxygen Saturation 95.9 % (95-100) Arterial Blood Base Excess 1.8 (-2-2) Rojas Test Positive White Blood Count 5.5 K/UL (4.8-10.8) Red Blood Count 2.64 M/UL (4.20-5.40) L Hemoglobin 7.8 G/DL (12.0-16.0) L Hematocrit 23.8 % (37.0-47.0) L Mean Corpuscular Volume 90 FL (80-99) Mean Corpuscular Hemoglobin 29.6 PG (27.0-31.0) Mean Corpuscular Hemoglobin Concent 32.9 G/DL (32.0-36.0) Red Cell Distribution Width 13.7 % (11.6-14.8) Platelet Count 234 K/UL (150-450) Mean Platelet Volume 6.1 FL (6.5-10.1) L Neutrophils (%) (Auto) % (45.0-75.0) Lymphocytes (%) (Auto) % (20.0-45.0) Monocytes (%) (Auto) % (1.0-10.0) Eosinophils (%) (Auto) % (0.0-3.0) Basophils (%) (Auto) % (0.0-2.0) Differential Total Cells Counted 100 Neutrophils % (Manual) 64 % (45-75) Lymphocytes % (Manual) 26 % (20-45) Monocytes % (Manual) 9 % (1-10) Eosinophils % (Manual) 1 % (0-3) Basophils % (Manual) 0 % (0-2) Band Neutrophils 0 % (0-8) Platelet Estimate Adequate Platelet Morphology Normal Hypochromasia 1+ Sodium Level 141 MMOL/L (136-145) Potassium Level 4.1 MMOL/L (3.5-5.1) Chloride Level 104 MMOL/L (98-107) Carbon Dioxide Level 25 MMOL/L (21-32) Anion Gap 12 mmol/L (5-15) Blood Urea Nitrogen 114 mg/dL (7-18) H Creatinine 2.8 MG/DL (0.55-1.30) H Estimat Glomerular Filtration Rate 18.1 mL/min (>60) Glucose Level 95 MG/DL (74-106) Calcium Level 8.1 MG/DL (8.5-10.1) L Assessment/Plan Assessment/Plan Aortic dissections - [place] B Sepsis with recovered shock Sinus node disease with bradycardia Hx pacemaker explant Ischemic cardiomyopathy - hx CABG? Paroxysmal Atrial Fib Respiratory failure with trach Hx thoracic aortic aneurysm repair ESRD Anemia HypoPO4 Hypertension/HHD with rising BP range Remains off beta blockers, which were discontinued early this morning. No need for emergent pacemaker at present. health lead Vent support Antimicrobials DVT prophyl No resumption of midodrine at this time; monitor for persistent BP elevations. Non-surgical mngmt Deni Willams MD Apr 05, 2020 22:29
[2020-04-05] MEDS: traMADol 50mg tab ORAL PRN (23:30)
[2020-04-06] VITALS (24 sets, daily range): BP systolic 135–162; BP diastolic 60–85
--- NOTE | 2020-04-06 00:10 | NUR ---
NURSE NOTES: repositioned pt, oral care given. oral suctioned. call light within reach. no bleeding noted at this time.
--- NOTE | 2020-04-06 02:00 | NUR ---
NURSE NOTES: repositioned pt, oral suctioned. pt is resting at this time. no S/s of pain. no bleeding noted at this time. call light within reach.
--- NOTE | 2020-04-06 04:10 | NUR ---
NURSE NOTES: cleaned pt, repositioned pt. oral care given. provided new gown, new chucks, new blanket. and changed wound dressing with aseptic technique. call light within reach.
[2020-04-06] MEDS: Zinc Oxide Oint 2oz TOPIC SCH ×3 (05:28→21:08)
[2020-04-06] MEDS: Metoclopramide 10mg/2ml Inj IVP SCH (05:32)
[2020-04-06] MEDS: HydrALAZINE 10mg Tab GT SCH ×3 (05:32→17:34)
[2020-04-06] MEDS: Sucralfate 1gm tab GT SCH ×4 (05:32→23:05)
[2020-04-06] MEDS: traMADol 50mg tab ORAL PRN ×2 (05:36→19:11)
--- NOTE | 2020-04-06 06:00 | NUR ---
NURSE NOTES: decreased Versed due to low HR. Addendum: 04/06/20 at 0645 by JOSEP VILLANUEVA RN wrong pt
--- NOTE | 2020-04-06 06:00 | NUR ---
NURSE NOTES: pt is resting comfortably. no s/s of respiratory distress at this time. repositioned pt.
--- NOTE | 2020-04-06 06:30 | NUR ---
NURSE NOTES: held Fentanyl due to low HR 49-52s. will closely monitor pt. Addendum: 04/06/20 at 0645 by JOSEP VILLANUEVA RN wrong pt
[2020-04-06 06:31] LABS: HEMATOCRIT 22.7 % (37.0-47.0); HEMOGLOBIN 7.6 G/DL (12.0-16.0); MEAN CORPUSCULAR VOLUME 90 FL (80-99); PLATELET COUNT 254 K/UL (150-450); RED BLOOD COUNT 2.51 M/UL (4.20-5.40); WHITE BLOOD COUNT 7.9 K/UL (4.8-10.8)
--- NOTE | 2020-04-06 06:41 | Hematology/Onc Progress Note ---
Assessment/Plan Assessment/Plan # Leukocytosis, now with likely bacteremia, as per ID care --> Cxr: : Large left abiola consolidation/effusion --> wbc 30-->40-->27->30->29-->35->32-->28-->21->10.2-->6.6 --> ABX angelo/vanc-->tobra/edson/vanc-->dapto/ceftazadine->off abx --> smear reviewed --> ID recs are noted # Anemia of chronic disease due to underlying chronic medical issues, multifactorial --> Anemia workup has been reviewed, cw acd --> No evidence of hemolysis is noted, peripheral smear has been reviewed. --> Hgb goal >7. Transfuse prn. --> Epogen required in prior --> Medications have been reviewed --> low threshold for gi evaluation in case has occult + --> hgb 1.9-->5-->7.1-->8.8-->8.1->7.5-> 8.2-->6. 8-->9.2-->8.4->7.7-->7.1-->8.8->8.7-->8.2 --> 1 unit prbc1/17, 2 units 01/15, 03/02, 03/18, 03/24 --> gi eval as needed # Elevated tumor markers, cea and ca 19.9 --> reviewed prior 01/27/20 cat scan a/p --> no masses noted, hold off further extensive w/u # Thrombocytopenia likely reactive v medication induced --> plt 200-->129->91-->86->100->78-->86-->87-->125->135 --> transfuse as needed --> r/o dic, has been ruled out --> anticoag as needed # Coagulopathy with inr 1.5 --> consider vit k/ffp as needed preprocedure --> labs noted # Aortic dissection as seen on Ct ==> when stable, consider transfer hloc # JAVIER initially >2 --> on ivfs --> per renal # Elevated d-dimer, likely infection related --> venous duplex prior neg --> in prior neg # Dysphagia s/p peg --> as per gi # Thoracic aortic dissection --> s/p repair early 2017 # Chronic Resp failure -> s/p trach/vent # Psychiatric history on ativan/haldol # CT resident # Dvt ppx --> scds The timing of this note does not necessarily reflect the time of the patient was seen. Greatly appreciate consultation. Subjective Allergies: Coded Allergies: No Known Allergies (Unverified , 10/10/17) All Systems: reviewed and negative except above Subjective 03/04 for 1 unit transfusion this am as hgb remains low, wbc better 03/05 egd was done did show large nonbleeding gastric ulcer, high tumor markers 03/06 nv, with davis overnight, bp remains stable, with occult + stool, roman Rn 03/09 nv, remains stable, on vanc/tobra/edson, meds reviewed, no bleeding 03/10 nv, on vent, no bleeding, receiving abx, no night sweats 03/11 nv, dw surgeon and pcp, with aortic dissection to transfer [facility] when stable 03/12 nv, labs reviewed, wbc 21, hgb 7.5, otherwise is comfortable 03/13 nv, labs noted, no bleeding, wbc 13, hgb improved, meds reviewed 03/15 nv, meds reviewed, labs noted, no bleeding, on vent 03/16 nv/tv, peg, meds noted, hgb remains stable, improved to 10 / s/p egd, with gastric ulceration noted, hgb stable 03/18 labs noted, hgb 6.8, to get 1 unit prbc, meds reviewed 03/19 hgb 9.2, plt 78, no hemoptysis, is comfortable 03/20 labs reviewed, meds noted, no bleeding, roman rn 03/22 wound treatment, vent, with gtube, labs reviewed, roman rn 03/23 labs reviewed, meds noted, no bleeding, with gt 03/24 large bm overnight that was bloody, hgb 7.1, roman rn 03/25 labs pending this am, comfortable, nsr, meds noted 03/26 nv, vent, with gt, labs reviewed, hgb 8.8 03/27 nv, vent, labs reviewed, with gt, hgb stable 03/29 nv, vent, labs pending, meds reviewed, no bleeding 03/30 nv, t/v, with gt feeds, labs reviewed, meds noted 03/31 nv, t/v, oral secretions were suctioned, meds reviewed 04/01 nv, t/v, labs are reviewed, meds noted, hgb 7.4 04/02 gt leaking, facial grimacing, labs noted, no bleeding, dw rn 04/03 nv, labs noted, no bleeding, roman rn, h/h stable 04/04 nv, labs reviewed, gtube replacement as per Dr. Mccauley 04/05 nv, labs reviewed, meds noted no bleeding, roman rn 04/06 nv, labs, meds noted, no bleeding, on vt, no new changes Objective Objective Current Medications Medications (Trade) Dose Ordered Sig/Penny Route PRN Reason Start Time Stop Time Status Last Admin Dose Admin Aspirin (ASA) 81 mg DAILY GT 03/07/20 09:00 04/21/20 08:59 04/03/20 08:21 Chlorhexidine Gluconate (Ling-Hex 2%) 1 applic DAILY@1999 TOPIC 03/03/20 20:00 06/01/20 19:59 04/05/20 20:26 Dextrose 1,000 ml @ 30 mls/hr Q24H IV 04/04/20 14:30 05/04/20 14:29 04/05/20 14:18 Dextrose (Dextrose 50%) 25 ml Q30M PRN IV Hypoglycemia 03/15/20 07:30 06/13/20 07:29 04/05/20 09:08 Dextrose (Dextrose 50%) 50 ml Q30M PRN IV Hypoglycemia 03/15/20 07:30 06/13/20 07:29 Famotidine (Pepcid I.v.) 20 mg Q12HR IVP 03/31/20 21:00 04/30/20 20:59 04/05/20 20:26 Hydralazine HCl (Apresoline) 10 mg Q6HR GT 04/05/20 13:15 07/04/20 13:14 04/06/20 05:32 Hydralazine HCl (Apresoline) 25 mg Q6H PRN GT For High Blood Pressure 03/02/20 22:00 05/31/20 21:59 Hydrocortisone (Anusol HC) 25 mg Q12HR RECTAL 03/23/20 21:00 06/21/20 08:59 04/05/20 20:27 Hydromorphone HCl (Dilaudid) 0.5 mg Q4H PRN IVP For Pain 04/02/20 20:30 04/09/20 20:29 04/05/20 14:16 Metoclopramide HCl (Reglan) 5 mg Q8HR IVP 03/04/20 11:45 05/02/20 11:44 04/06/20 05:32 Sodium Hypochlorite (Dakin's Quarter Strength) 1 applic BEDTIME TOPIC 04/04/20 21:00 05/02/20 08:59 04/05/20 20:27 Sucralfate (Carafate) 1 gm EVERY 6 HOURS GT 03/17/20 18:00 06/09/20 08:59 04/06/20 05:32 Tramadol HCl (Ultram) 50 mg Q6H PRN ORAL Moderate Pain (Pain Scale 4-6) 03/26/20 19:30 04/09/20 19:29 04/06/20 05:36 Zinc Oxide (Zinc Oxide) 1 applic Q8HR TOPIC 03/25/20 22:00 06/22/20 17:59 04/06/20 05:28 Last 24 Hour Vital Signs Date Time Temp Pulse Resp B/P (MAP) Pulse Ox O2 Delivery O2 Flow Rate FiO2 04/06/20 06:00 57 14 148/63 (91) 100 04/06/20 05:32 151/59 04/06/20 05:00 57 14 143/65 (91) 99 04/06/20 04:58 55 14 30 04/06/20 04:00 98.0 56 14 151/61 (91) 99 04/06/20 04:00 30 04/06/20 04:00 Mechanical Ventilator 04/06/20 03:37 57 15 30 04/06/20 03:12 56 04/06/20 03:00 55 4 146/62 (90) 100 04/06/20 02:00 53 14 135/74 (94) 100 04/06/20 01:30 58 19 30 04/06/20 01:00 56 14 141/64 (89) 99 04/06/20 00:00 Mechanical Ventilator 04/06/20 00:00 98.0 52 14 144/64 (90) 100 04/05/20 23:06 131/69 04/05/20 23:05 51 04/05/20 23:02 46 14 30 04/05/20 23:00 49 14 131/69 (89) 100 04/05/20 22:00 54 20 137/74 (95) 100 04/05/20 21:00 47 14 131/65 (87) 100 04/05/20 20:36 45 14 30 04/05/20 20:00 Mechanical Ventilator 04/05/20 20:00 30 04/05/20 20:00 97.8 50 14 140/58 (85) 100 04/05/20 19:30 40 14 30 04/05/20 19:23 44 04/05/20 19:00 52 18 139/54 (82) 100 04/05/20 18:00 42 14 124/57 (79) 100 04/05/20 17:55 129/55 04/05/20 17:00 41 14 129/55 (79) 100 04/05/20 16:00 Mechanical Ventilator 04/05/20 16:00 43 04/05/20 16:00 97.8 42 14 123/57 (79) 100 04/05/20 16:00 30 04/05/20 15:00 42 15 131/68 (89) 100 04/05/20 14:52 41 14 30 04/05/20 14:15 127/56 04/05/20 14:00 42 14 127/56 (79) 100 04/05/20 13:00 42 14 135/48 (77) 100 04/05/20 12:00 97.4 51 14 133/55 (81) 100 04/05/20 12:00 Mechanical Ventilator 04/05/20 12:00 30 04/05/20 11:23 49 04/05/20 11:00 43 14 136/53 (80) 100 04/05/20 10:45 38 14 30 04/05/20 10:00 43 15 131/53 (79) 100 04/05/20 09:00 47 18 131/54 (79) 100 04/05/20 08:11 46 04/05/20 08:00 Mechanical Ventilator 04/05/20 08:00 97.3 43 14 127/60 (82) 100 04/05/20 08:00 30 04/05/20 07:15 49 14 30 04/05/20 07:00 40 14 119/72 (88) 100 04/05/20 06:00 48 14 99 04/05/20 05:00 50 17 133/60 (84) 100 04/05/20 04:00 43 14 124/55 (78) 100 04/05/20 04:00 44 04/05/20 04:00 40 04/05/20 04:00 Mechanical Ventilator 04/05/20 03:00 40 14 125/54 (77) 100 04/05/20 02:00 40 14 117/54 (75) 100 04/05/20 01:44 40 14 30 04/05/20 01:00 39 14 124/55 (78) 100 04/05/20 00:00 40 04/05/20 00:00 97.9 04/05/20 00:00 39 14 116/57 (76) 100 04/05/20 00:00 39 04/05/20 00:00 Mechanical Ventilator 04/04/20 23:00 48 14 132/57 (82) 100 04/04/20 22:00 44 14 124/61 (82) 100 04/04/20 21:00 41 14 135/59 (84) 90 04/04/20 20:00 46 17 133/62 (85) 95 04/04/20 20:00 44 04/04/20 20:00 Mechanical Ventilator 04/04/20 20:00 40 04/04/20 19:33 42 14 30 04/04/20 19:00 50 17 137/70 (92) 99 04/04/20 18:39 50 14 30 04/04/20 18:00 44 14 132/57 (82) 100 04/04/20 17:00 46 15 130/91 (104) 97 04/04/20 16:00 46 04/04/20 16:00 40 04/04/20 16:00 Mechanical Ventilator 04/04/20 16:00 97.5 42 14 121/60 (80) 98 04/04/20 15:04 43 04/04/20 15:00 45 15 137/52 (80) 99 04/04/20 14:50 40 14 40 04/04/20 14:00 44 15 134/60 (84) 91 04/04/20 13:00 42 14 126/56 (79) 97 04/04/20 12:00 40 04/04/20 12:00 97.0 40 14 133/60 (84) 100 04/04/20 12:00 Mechanical Ventilator 04/04/20 11:39 40 04/04/20 11:00 46 17 130/57 (81) 98 04/04/20 10:52 40 14 40 04/04/20 10:00 41 14 138/50 (79) 98 04/04/20 09:00 44 14 136/55 (82) 99 04/04/20 08:00 97.0 44 13 142/48 (79) 98 04/04/20 08:00 Mechanical Ventilator 04/04/20 08:00 40 04/04/20 07:49 41 04/04/20 07:25 43 14 40 04/04/20 07:00 45 14 140/57 (84) 100 Intake and Output 04/05/20 04/06/20 19:00 07:00 Intake Total 620 ml 705 ml Output Total 5 ml 0 ml Balance 615 ml 705 ml Intake Free Water 80 ml 40 ml IV Total 360 ml 300 ml Tube Feeding 180 ml 365 ml Output Urine Total 0 ml 0 ml Gastric Drainage Total 5 ml # Bowel Movements 4 2 Labs Test 04/03/20 11:22 04/03/20 17:34 04/04/20 04:30 04/04/20 17:19 POC Whole Blood Glucose 91 MG/DL (74-106) White Blood Count 6.1 K/UL (4.8-10.8) Red Blood Count 2.83 M/UL (4.20-5.40) Hemoglobin 8.7 G/DL (12.0-16.0) Hematocrit 26.1 % (37.0-47.0) Mean Corpuscular Volume 92 FL (80-99) Mean Corpuscular Hemoglobin 30.7 PG (27.0-31.0) Mean Corpuscular Hemoglobin Concent 33.4 G/DL (32.0-36.0) Red Cell Distribution Width 13.7 % (11.6-14.8) Platelet Count 217 K/UL (150-450) Mean Platelet Volume 6.4 FL (6.5-10.1) Neutrophils (%) (Auto) 72.1 % (45.0-75.0) Lymphocytes (%) (Auto) 21.7 % (20.0-45.0) Monocytes (%) (Auto) 5.1 % (1.0-10.0) Eosinophils (%) (Auto) 0.1 % (0.0-3.0) Basophils (%) (Auto) 1.0 % (0.0-2.0) Sodium Level 141 MMOL/L (136-145) Potassium Level 3.9 MMOL/L (3.5-5.1) Chloride Level 105 MMOL/L (98-107) Carbon Dioxide Level 30 MMOL/L (21-32) Anion Gap 6 mmol/L (5-15) Blood Urea Nitrogen 95 mg/dL (7-18) Creatinine 2.5 MG/DL (0.55-1.30) Estimat Glomerular Filtration Rate 20.6 mL/min (>60) Glucose Level 150 MG/DL (74-106) Calcium Level 8.4 MG/DL (8.5-10.1) Phosphorus Level 3.6 MG/DL (2.5-4.9) Magnesium Level 2.5 MG/DL (1.8-2.4) Total Bilirubin 0.7 MG/DL (0.2-1.0) Aspartate Amino Transf (AST/SGOT) 42 U/L (15-37) Alanine Aminotransferase (ALT/SGPT) 15 U/L (12-78) Alkaline Phosphatase 128 U/L (46-116) C-Reactive Protein, Quantitative 13.1 mg/dL (0.00-0.90) Pro-B-Type Natriuretic Peptide > 03784 pg/mL (0-125) Total Protein 5.5 G/DL (6.4-8.2) Albumin 1.2 G/DL (3.4-5.0) Globulin 4.3 g/dL Albumin/Globulin Ratio 0.3 (1.0-2.7) Arterial Blood pH 7.609 (7.350-7.450) Arterial Blood Partial Pressure CO2 28.9 mmHg (35.0-45.0) Arterial Blood Partial Pressure O2 216.3 mmHg (75.0-100.0) Arterial Blood HCO3 28.3 mmol/L (22.0-26.0) Arterial Blood Oxygen Saturation 98.4 % (95-100) Arterial Blood Base Excess 6.9 (-2-2) Rojas Test Positive Test 04/05/20 09:06 04/05/20 11:10 04/06/20 05:49 Arterial Blood pH 7.554 (7.350-7.450) Arterial Blood Partial Pressure CO2 27.7 mmHg (35.0-45.0) Arterial Blood Partial Pressure O2 89.7 mmHg (75.0-100.0) Arterial Blood HCO3 23.9 mmol/L (22.0-26.0) Arterial Blood Oxygen Saturation 95.9 % (95-100) Arterial Blood Base Excess 1.8 (-2-2) Rojas Test Positive White Blood Count 5.5 K/UL (4.8-10.8) Red Blood Count 2.64 M/UL (4.20-5.40) Hemoglobin 7.8 G/DL (12.0-16.0) Hematocrit 23.8 % (37.0-47.0) Mean Corpuscular Volume 90 FL (80-99) Mean Corpuscular Hemoglobin 29.6 PG (27.0-31.0) Mean Corpuscular Hemoglobin Concent 32.9 G/DL (32.0-36.0) Red Cell Distribution Width 13.7 % (11.6-14.8) Platelet Count 234 K/UL (150-450) Mean Platelet Volume 6.1 FL (6.5-10.1) Neutrophils (%) (Auto) % (45.0-75.0) Lymphocytes (%) (Auto) % (20.0-45.0) Monocytes (%) (Auto) % (1.0-10.0) Eosinophils (%) (Auto) % (0.0-3.0) Basophils (%) (Auto) % (0.0-2.0) Differential Total Cells Counted 100 Neutrophils % (Manual) 64 % (45-75) Lymphocytes % (Manual) 26 % (20-45) Monocytes % (Manual) 9 % (1-10) Eosinophils % (Manual) 1 % (0-3) Basophils % (Manual) 0 % (0-2) Band Neutrophils 0 % (0-8) Platelet Estimate Adequate Platelet Morphology Normal Hypochromasia 1+ Sodium Level 141 MMOL/L (136-145) Potassium Level 4.1 MMOL/L (3.5-5.1) Chloride Level 104 MMOL/L (98-107) Carbon Dioxide Level 25 MMOL/L (21-32) Anion Gap 12 mmol/L (5-15) Blood Urea Nitrogen 114 mg/dL (7-18) Creatinine 2.8 MG/DL (0.55-1.30) Estimat Glomerular Filtration Rate 18.1 mL/min (>60) Glucose Level 95 MG/DL (74-106) Calcium Level 8.1 MG/DL (8.5-10.1) Height (Feet): 5 Height (Inches): 3.00 Weight (Pounds): 128 Objective Physical Exam: Vitals: reviewed General: NAD HEENT: nc, at Neck: supple ++trach/vent Chest: clear breath sounds bilaterally Cardiovascular: RRR, no s3, s4 Abdomen: soft, nontender, nd +gtube Extremities: no cce, normal range of motion Neuro: alert Evan Muhammad MD Apr 06, 2020 06:41
--- NOTE | 2020-04-06 06:43 | General Progress Note ---
Subjective ROS Limited/Unobtainable: No Allergies: Coded Allergies: No Known Allergies (Unverified , 10/10/17) Objective Last 24 Hour Vital Signs Date Time Temp Pulse Resp B/P (MAP) Pulse Ox O2 Delivery O2 Flow Rate FiO2 04/06/20 06:00 57 14 148/63 (91) 100 04/06/20 05:32 151/59 04/06/20 05:00 57 14 143/65 (91) 99 04/06/20 04:58 55 14 30 04/06/20 04:00 98.0 56 14 151/61 (91) 99 04/06/20 04:00 30 04/06/20 04:00 Mechanical Ventilator 04/06/20 03:37 57 15 30 04/06/20 03:12 56 04/06/20 03:00 55 4 146/62 (90) 100 04/06/20 02:00 53 14 135/74 (94) 100 04/06/20 01:30 58 19 30 04/06/20 01:00 56 14 141/64 (89) 99 04/06/20 00:00 Mechanical Ventilator 04/06/20 00:00 98.0 52 14 144/64 (90) 100 04/05/20 23:06 131/69 04/05/20 23:05 51 04/05/20 23:02 46 14 30 04/05/20 23:00 49 14 131/69 (89) 100 04/05/20 22:00 54 20 137/74 (95) 100 04/05/20 21:00 47 14 131/65 (87) 100 04/05/20 20:36 45 14 30 04/05/20 20:00 Mechanical Ventilator 04/05/20 20:00 30 04/05/20 20:00 97.8 50 14 140/58 (85) 100 04/05/20 19:30 40 14 30 04/05/20 19:23 44 04/05/20 19:00 52 18 139/54 (82) 100 04/05/20 18:00 42 14 124/57 (79) 100 04/05/20 17:55 129/55 04/05/20 17:00 41 14 129/55 (79) 100 04/05/20 16:00 Mechanical Ventilator 04/05/20 16:00 43 04/05/20 16:00 97.8 42 14 123/57 (79) 100 04/05/20 16:00 30 04/05/20 15:00 42 15 131/68 (89) 100 04/05/20 14:52 41 14 30 04/05/20 14:15 127/56 04/05/20 14:00 42 14 127/56 (79) 100 04/05/20 13:00 42 14 135/48 (77) 100 04/05/20 12:00 97.4 51 14 133/55 (81) 100 04/05/20 12:00 Mechanical Ventilator 04/05/20 12:00 30 04/05/20 11:23 49 04/05/20 11:00 43 14 136/53 (80) 100 04/05/20 10:45 38 14 30 04/05/20 10:00 43 15 131/53 (79) 100 04/05/20 09:00 47 18 131/54 (79) 100 04/05/20 08:11 46 04/05/20 08:00 Mechanical Ventilator 04/05/20 08:00 97.3 43 14 127/60 (82) 100 04/05/20 08:00 30 04/05/20 07:15 49 14 30 04/05/20 07:00 40 14 119/72 (88) 100 Intake and Output 04/05/20 04/06/20 19:00 07:00 Intake Total 620 ml 705 ml Output Total 5 ml 0 ml Balance 615 ml 705 ml Intake Free Water 80 ml 40 ml IV Total 360 ml 300 ml Tube Feeding 180 ml 365 ml Output Urine Total 0 ml 0 ml Gastric Drainage Total 5 ml # Bowel Movements 4 2 Laboratory Tests 04/05/20 09:06: Arterial Blood pH 7.554*H, Arterial Blood Partial Pressure CO2 27.7L, Arterial Blood Partial Pressure O2 89.7, Arterial Blood HCO3 23.9, Arterial Blood Oxygen Saturation 95.9, Arterial Blood Base Excess 1.8, Rojas Test Positive 04/05/20 11:10: White Blood Count 5.5, Red Blood Count 2.64L, Hemoglobin 7.8L, Hematocrit 23.8L, Mean Corpuscular Volume 90, Mean Corpuscular Hemoglobin 29.6, Mean Corpuscular Hemoglobin Concent 32.9, Red Cell Distribution Width 13.7, Platelet Count 234, Mean Platelet Volume 6.1L, Neutrophils (%) (Auto) , Lymphocytes (%) (Auto) , Monocytes (%) (Auto) , Eosinophils (%) (Auto) , Basophils (%) (Auto) , Differential Total Cells Counted 100, Neutrophils % (Manual) 64, Lymphocytes % (Manual) 26, Monocytes % (Manual) 9, Eosinophils % (Manual) 1, Basophils % (Manual) 0, Band Neutrophils 0, Platelet Estimate Adequate, Platelet Morphology Normal, Hypochromasia 1+, Sodium Level 141, Potassium Level 4.1, Chloride Level 104, Carbon Dioxide Level 25, Anion Gap 12, Blood Urea Nitrogen 114H, Creatinine 2.8H, Estimat Glomerular Filtration Rate 18.1, Glucose Level 95, Calcium Level 8.1L 04/06/20 05:49: White Blood Count [Pending], Red Blood Count [Pending], Hemoglobin [Pending], Hematocrit [Pending], Mean Corpuscular Volume [Pending], Mean Corpuscular Hemoglobin [Pending], Mean Corpuscular Hemoglobin Concent [Pending], Red Cell Distribution Width [Pending], Platelet Count [Pending], Mean Platelet Volume [Pending], Neutrophils (%) (Auto) [Pending], Lymphocytes (%) (Auto) [Pending], Monocytes (%) (Auto) [Pending], Eosinophils (%) (Auto) [Pending], Basophils (%) (Auto) [Pending], Sodium Level [Pending], Potassium Level [Pending], Chloride Level [Pending], Carbon Dioxide Level [Pending], Blood Urea Nitrogen [Pending], Creatinine [Pending], Estimat Glomerular Filtration Rate [Pending], Glucose Level [Pending], Calcium Level [Pending], Phosphorus Level [Pending], Magnesium Level [Pending], Total Bilirubin [Pending], Aspartate Amino Transf (AST/SGOT) [Pending], Alanine Aminotransferase (ALT/SGPT) [Pending], Alkaline Phosphatase [Pending], Total Protein [Pending], Albumin [Pending], Globulin [Pending] Height (Feet): 5 Height (Inches): 3.00 Weight (Pounds): 128 General Appearance: no apparent distress EENT: normal ENT inspection Neck: supple Cardiovascular: normal rate Respiratory/Chest: decreased breath sounds Abdomen: hypoactive bowel sounds Extremities: non-tender Assessment/Plan Problem List: (1) Hx of CABG ICD Codes: Z95.1 - Presence of aortocoronary bypass graft SNOMED: 127314783, 769837266 (2) History of tracheostomy ICD Codes: Z98.890 - Other specified postprocedural states SNOMED: 750501306, 259081929 (3) PEG (percutaneous endoscopic gastrostomy) status ICD Codes: Z93.1 - Gastrostomy status SNOMED: 482240676, 895263975 (4) Renal failure ICD Codes: N19 - Unspecified kidney failure SNOMED: 24295096, 587560826 (5) Severe anemia ICD Codes: D64.9 - Anemia, unspecified SNOMED: 462193943 Assessment/Plan: s/p EGD gastric ulcer on ppi and carafate fu H&H GTF transferred to icu for abnormal HR GT leak and GTF on hold no GIB GT was replace yesterday fu labs supportive care Inder Mccauley MD Apr 06, 2020 06:43
[2020-04-06 07:15] LABS: ALBUMIN 1.3 G/DL (3.4-5.0); ALBUMIN/GLOBULIN RATIO 0.3 (1.0-2.7); BILIRUBIN,TOTAL 0.6 MG/DL (0.2-1.0); PHOSPHORUS 5.8 MG/DL (2.5-4.9); POTASSIUM 4.4 MMOL/L (3.5-5.1)
--- NOTE | 2020-04-06 07:22 | NUR ---
NURSE HAND-OFF REPORT: Latest Vital Signs: Temperature 98.0 , Pulse 57 , B/P 148 /63 , Respiratory Rate 14 , O2 SAT 100 , Mechanical Ventilator, O2 Flow Rate . Vital Sign Comment: [stable, davis cardia] EKG Rhythm: Sinus Bradycardia Rhythm change?: N Notified?: N -Dr Екатерина HATFIELD Response: Latest Chavarria Fall Score: 60 Fall Risk: High Risk Safety Measures: Call light Within Reach, Bed Alarm Zone 2, Side Rails Side Rails x3, Bed position Low and Locked. Fall Precautions: Yellow Socks Report given to [Alina Washington RN].
--- NOTE | 2020-04-06 07:30 | NUR ---
NURSE NOTES: Received pt and report from ERASMO Manley. Pt is resting on the bed, AOx1. SB at this time, 50bpm on the monitoring manager. Trache to vent; Shiley 7. AC 14, TV 500, Fiow 30% Peep 5. No s/s of respiratory distress. Gtube site is new, gauge in place, Nephro is running at 35ml/hr; no residual noted at this time. PermCath on right chest noted, left FA 20g right hand 20G IV sites are intact, clean, and patent. D10W is running at 30ml/hr; will D/C once TF goal of 40mL/hr has been reached. Bed locked and in lowest position, alarmed. Call light within reach. will continue to monitor pt with plan of care.
--- NOTE | 2020-04-06 08:30 | NUR ---
NURSE NOTES: Dr Houston on the unit making his rounds. Updated him on pt's current condition.
[2020-04-06] MEDS: Hydrocortisone 25mg supp RECTAL SCH ×2 (08:42→21:07)
[2020-04-06] MEDS: Aspirin Baby 81mg GT SCH (08:43)
--- NOTE | 2020-04-06 08:46 | Nephrology Progress Note ---
Assessment/Plan Problem List: (1) Renal failure (ARF), acute on chronic (2) Anemia (3) Hyponatremia (4) Respiratory failure Assessment (1) JAVIER (acute kidney injury) (2) Renal failure (ARF), acute on chronic (3) Feeding by G-tube (4) Tracheostomy in place (5) Electrolyte imbalance, hyponatremia (6) Anemia, severe (7) Respiratory failure, acute and chronic (8) history of elevated lipase, pancreatitis (9) Elevated troponin I (10) Sepsis Plan April 06: Full code. Intubated via trach on ventilator. FiO2 30%. Blood sugar stable. D50 will be discontinued. Continue feeding. Dialysis as needed. April 05: Remains in ICU. Low heart rate persists. Will initiate low-dose hydralazine with blood pressure parameters. Last dialysis April 03. Blood sugar stable on 30 mL of D10 hourly. GT feeding started. Continue to monitor electrolytes renal parameters and arrange for dialysis as needed. April 04: Patient currently in ICU due to low heart rate. Blood pressure is stable. Dialyzed yesterday. Labs reviewed. Renal parameters and electrolytes stable. Medication list reviewed. Continue per cardiology with regard to bradycardia. April 03: Labs reviewed. We will order dialysis today. Continue per consultants. April 02: Labs reviewed. No need for dialysis today. Continue to monitor renal parameters. April 01: Labs reviewed. Renal parameters stable. No dialysis today. Continue per consultants. March 31: No labs drawn today. Renal parameters stable as of yesterday. Will check lab tomorrow. Dialysis as needed. March 30: Labs reviewed. Low phosphorus addressed. Continue per PMD and consultants. Dialysis as needed. March 29: Dialyzed yesterday. No CHEM panel drawn today. We will continue to monitor renal parameters. Continue per consultants. March 28: Due for dialysis today. Labs reviewed. Stable from renal standpoint of view. March 27: Due for dialysis tomorrow. Labs reviewed. Medication list reviewed. Continue per current management. March 26: Last dialyzed March 24. Labs reviewed. Low phosphorus replaced. Continue to monitor renal parameters. Dialysis as needed. March 25: Dialyzed yesterday. Labs reviewed. Low phosphorus replaced. Continue per current management. Hemoglobin higher. March 24: Labs reviewed. Due for dialysis today. Continue per current management. Hemoglobin lower. Transfusion per mail teller. March 23: Labs reviewed. Dialyzed yesterday. Next dialysis tomorrow. Anemia management per mail teller. March 22: Labs reviewed. Due for dialysis today. Discussed with RN. Agree with discontinuation of the Norman catheter. Hemoglobin lower. Transfusion per mail teller. March 21: Labs reviewed. Will arrange for dialysis tomorrow. Continue per consultants. Will hold phosphorus binders at this time. March 20: Labs reviewed. Patient was dialyzed yesterday. Electrolyte abnormalities corrected. Continue per current management. March 19: Due for dialysis today. Abnormal labs noted. All will be corrected after dialysis. March 18: Labs reviewed. Will dialyze tomorrow. Patient being transfused today. Patient due for abdominal paracentesis. We will keep the Norman in. Continue to monitor renal parameters and dialyze as needed. March 17: No CHEM panel done today. CBC reviewed. Hemoglobin is lowering. Dialyzed yesterday. Will check lab tomorrow. Continue per consultants. March 16: Labs reviewed. Due for dialysis today. Hemoglobin 10.2 today. Continue to monitor renal parameters. March 15: Labs reviewed. Dialyzed March 13. Due for dialysis March 16. Hemoglobin lower. 1 unit of packed RBCs ordered. Per orders. March 14: No labs drawn today. Dialyzed yesterday. Full code. Will check lab tomorrow. Dialysis as needed. March 13: Labs reviewed. Due for dialysis today. Patient remains full code. Continue per current management. March 12: Labs reviewed. Dialyzed yesterday. Due for dialysis tomorrow. Discussed with RN. Patient full code. Continue per current management. March 11: Labs reviewed. Dialyzed this morning. Phosphorus binders dose adjusted. Continue per consultants. Continue to monitor renal parameters. CT: Extensive thoracoabdominal aortic dissection March 10: Labs reviewed. Will order dialysis tomorrow. Phosphorus binders added. Continue per consultants. March 09: No chemistry panel done today. Patient dialyzed yesterday. On dextrose 10% for hypoglycemia. We will check labs tomorrow. Dialysis as needed. March 08: Labs reviewed. Will order dialysis today. Blood sugar low. D10 50 cc an hour started. Continue as is. March 07: Labs reviewed. Dialyzed March 05 and March 06. Continue to monitor renal parameters and hemoglobin. Abnormal electrolytes addressed. IV fluids stopped. Per orders. March 06: Labs reviewed. Dialyzed yesterday. Will reorder dialysis for today. Continue to monitor renal parameters. Hemoglobin 8.4. Patient full co de. March 05: Labs reviewed. Patient did not receive dialysis until this morning. Proceed with dialysis. Continue to monitor renal parameters and hemoglobin and hematocrit. March 04: Labs reviewed. Hemoglobin lower. Patient actively bleeding. Was not dialyzed yesterday. Due for GI endoscopy. Continue fluid challenge. Transfusion as needed. Dialysis today. March 03: Labs reviewed. Dialysis ordered. Blood pressure medication all discontinued due to hypotensive state. Albumin bolus given. Continue to monitor renal parameters. Medication list reviewed. Midodrin for low blood pressure ordered Subjective ROS Limited/Unobtainable: Yes Objective Objective Last 24 Hour Vital Signs Date Time Temp Pulse Resp B/P (MAP) Pulse Ox O2 Delivery O2 Flow Rate FiO2 04/06/20 08:00 Mechanical Ventilator 04/06/20 08:00 30 04/06/20 07:00 56 14 147/65 (92) 100 04/06/20 06:00 57 14 148/63 (91) 100 04/06/20 05:32 151/59 04/06/20 05:00 57 14 143/65 (91) 99 04/06/20 04:58 55 14 30 04/06/20 04:00 98.0 56 14 151/61 (91) 99 04/06/20 04:00 30 04/06/20 04:00 Mechanical Ventilator 04/06/20 03:37 57 15 30 04/06/20 03:12 56 04/06/20 03:00 55 4 146/62 (90) 100 04/06/20 02:00 53 14 135/74 (94) 100 04/06/20 01:30 58 19 30 04/06/20 01:00 56 14 141/64 (89) 99 04/06/20 00:00 Mechanical Ventilator 04/06/20 00:00 98.0 52 14 144/64 (90) 100 04/05/20 23:06 131/69 04/05/20 23:05 51 04/05/20 23:02 46 14 30 04/05/20 23:00 49 14 131/69 (89) 100 04/05/20 22:00 54 20 137/74 (95) 100 04/05/20 21:00 47 14 131/65 (87) 100 04/05/20 20:36 45 14 30 04/05/20 20:00 Mechanical Ventilator 04/05/20 20:00 30 04/05/20 20:00 97.8 50 14 140/58 (85) 100 04/05/20 19:30 40 14 30 04/05/20 19:23 44 04/05/20 19:00 52 18 139/54 (82) 100 04/05/20 18:00 42 14 124/57 (79) 100 04/05/20 17:55 129/55 04/05/20 17:00 41 14 129/55 (79) 100 04/05/20 16:00 Mechanical Ventilator 04/05/20 16:00 43 04/05/20 16:00 97.8 42 14 123/57 (79) 100 04/05/20 16:00 30 04/05/20 15:00 42 15 131/68 (89) 100 04/05/20 14:52 41 14 30 04/05/20 14:15 127/56 04/05/20 14:00 42 14 127/56 (79) 100 04/05/20 13:00 42 14 135/48 (77) 100 04/05/20 12:00 97.4 51 14 133/55 (81) 100 04/05/20 12:00 Mechanical Ventilator 04/05/20 12:00 30 04/05/20 11:23 49 04/05/20 11:00 43 14 136/53 (80) 100 04/05/20 10:45 38 14 30 04/05/20 10:00 43 15 131/53 (79) 100 04/05/20 09:00 47 18 131/54 (79) 100 Intake and Output 04/05/20 04/06/20 19:00 07:00 Intake Total 620 ml 800 ml Output Total 5 ml 0 ml Balance 615 ml 800 ml Intake Free Water 80 ml 40 ml IV Total 360 ml 360 ml Tube Feeding 180 ml 400 ml Output Urine Total 0 ml 0 ml Gastric Drainage Total 5 ml # Bowel Movements 4 2 Current Medications Medications (Trade) Dose Ordered Sig/Penny Route PRN Reason Start Time Stop Time Status Last Admin Dose Admin Aspirin (ASA) 81 mg DAILY GT 03/07/20 09:00 04/21/20 08:59 04/06/20 08:43 Chlorhexidine Gluconate (Ling-Hex 2%) 1 applic DAILY@1999 TOPIC 03/03/20 20:00 06/01/20 19:59 04/05/20 20:26 Dextrose 1,000 ml @ 30 mls/hr Q24H IV 04/04/20 14:30 05/04/20 14:29 04/05/20 14:18 Dextrose (Dextrose 50%) 25 ml Q30M PRN IV Hypoglycemia 03/15/20 07:30 06/13/20 07:29 04/05/20 09:08 Dextrose (Dextrose 50%) 50 ml Q30M PRN IV Hypoglycemia 03/15/20 07:30 06/13/20 07:29 Famotidine (Pepcid I.v.) 20 mg Q12HR IVP 03/31/20 21:00 04/30/20 20:59 04/06/20 08:42 Hydralazine HCl (Apresoline) 10 mg Q6HR GT 04/05/20 13:15 07/04/20 13:14 04/06/20 05:32 Hydralazine HCl (Apresoline) 25 mg Q6H PRN GT For High Blood Pressure 03/02/20 22:00 05/31/20 21:59 Hydrocortisone (Anusol HC) 25 mg Q12HR RECTAL 03/23/20 21:00 06/21/20 08:59 04/06/20 08:42 Hydromorphone HCl (Dilaudid) 0.5 mg Q4H PRN IVP For Pain 04/02/20 20:30 04/09/20 20:29 04/05/20 14:16 Metoclopramide HCl (Reglan) 5 mg Q8HR IVP 03/04/20 11:45 05/02/20 11:44 04/06/20 05:32 Sodium Hypochlorite (Dakin's Quarter Strength) 1 applic BEDTIME TOPIC 04/04/20 21:00 05/02/20 08:59 04/05/20 20:27 Sucralfate (Carafate) 1 gm EVERY 6 HOURS GT 03/17/20 18:00 06/09/20 08:59 04/06/20 05:32 Tramadol HCl (Ultram) 50 mg Q6H PRN ORAL Moderate Pain (Pain Scale 4-6) 03/26/20 19:30 04/09/20 19:29 04/06/20 05:36 Zinc Oxide (Zinc Oxide) 1 applic Q8HR TOPIC 03/25/20 22:00 06/22/20 17:59 04/06/20 05:28 Laboratory Tests 04/05/20 09:06: Arterial Blood pH 7.554*H, Arterial Blood Partial Pressure CO2 27.7L, Arterial Blood Partial Pressure O2 89.7, Arterial Blood HCO3 23.9, Arterial Blood Oxygen Saturation 95.9, Arterial Blood Base Excess 1.8, Rojas Test Positive 04/05/20 11:10: White Blood Count 5.5, Red Blood Count 2.64L, Hemoglobin 7.8L, Hematocrit 23.8L, Mean Corpuscular Volume 90, Mean Corpuscular Hemoglobin 29.6, Mean Corpuscular Hemoglobin Concent 32.9, Red Cell Distribution Width 13.7, Platelet Count 234, Mean Platelet Volume 6.1L, Neutrophils (%) (Auto) , Lymphocytes (%) (Auto) , Monocytes (%) (Auto) , Eosinophils (%) (Auto) , Basophils (%) (Auto) , Differential Total Cells Counted 100, Neutrophils % (Manual) 64, Lymphocytes % (Manual) 26, Monocytes % (Manual) 9, Eosinophils % (Manual) 1, Basophils % (Manual) 0, Band Neutrophils 0, Platelet Estimate Adequate, Platelet Morphology Normal, Hypochromasia 1+, Sodium Level 141, Potassium Level 4.1, Chloride Level 104, Carbon Dioxide Level 25, Anion Gap 12, Blood Urea Nitrogen 114H, Creatinine 2.8H, Estimat Glomerular Filtration Rate 18.1, Glucose Level 95, Calcium Level 8.1L 04/06/20 05:49: White Blood Count 7.9, Red Blood Count 2.51L, Hemoglobin 7.6L, Hematocrit 22.7L, Mean Corpuscular Volume 90, Mean Corpuscular Hemoglobin 30.4, Mean Corpuscular Hemoglobin Concent 33.6, Red Cell Distribution Width 14.0, Platelet Count 254, Mean Platelet Volume 5.8L, Neutrophils (%) (Auto) , Lymphocytes (%) (Auto) , Monocytes (%) (Auto) , Eosinophils (%) (Auto) , Basophils (%) (Auto) , Sodium Level 138, Potassium Level 4.4, Chloride Level 102, Carbon Dioxide Level 27, Anion Gap 9, Blood Urea Nitrogen 125H, Creatinine 3.0H, Estimat Glomerular Filtration Rate 16.7, Glucose Level 124H, Calcium Level 8.0L, Phosphorus Level 5.8H, Magnesium Level 2.5H, Total Bilirubin 0.6, Aspartate Amino Transf (AST/SGOT) 38H, Alanine Aminotransferase (ALT/SGPT) 19, Alkaline Phosphatase 145H, Total Protein 5.5L, Albumin 1.3L, Globulin 4.2, Albumin/Globulin Ratio 0.3L Height (Feet): 5 Height (Inches): 3.00 Weight (Pounds): 128 General Appearance: no apparent distress EENT: other - Intubated on ventilator Neck: limited range of motion Cardiovascular: bradycardia Respiratory/Chest: decreased breath sounds Abdomen: distended Johnny Houston MD Apr 06, 2020 08:46
[2020-04-06] MEDS: HYDROmorphone 1mg/ml Carpuject IVP PRN ×3 (08:55→21:43)
--- NOTE | 2020-04-06 09:21 | Infectious Diseases Prog Note ---
Assessment/Plan 49yo F with: MDR Kleb pna bacteremia AMS Anemia to 1.9 on admission 03/02 Leukocytosis to 40, improving GPC bacteremia UTI Pneumonia c/b mod-large R pleural effusion and small L pleural effusion - compressive atelectasis Hypotension 03/02 BCx 1/2 +Staph epi, 12 +Staph haemolyticus (m/l skin colonizers) UA+, UCx >100k P.stuartii (S-angelo) & CRE P.mirablis (R-polyB/colistin, S- tobramycin, per [facility] is "intrinsically resistant to Avycaz/Zerbaxa" not clear why to me and they are unable to elaborate more) COVID rapid neg, PCR neg CXR: Tracheostomy again demonstrated. Interim placement of a right jugular tunneled dialysis catheter. There is infiltrate and volume loss in the left lung, particularly in the perihilar region, suprahilar region, and base. Consolidation at the lung base is similar. The perihilar and suprahilar region consolidation is new. The right lung pleural space are clear. C.dif neg 03/03 BCx NTD 03/06 BCx 2/2 +MDR Kleb pna (arnett-R, including R-polyB, colistin), 02/14 +E.faecium VRE (R-amp, S-linezolid) 03/08 BCx NTD 03/09 CT CAP: Very limited exam, as described, due to massive anasarca. This could limit visualization of the discrete fluid collection such as an abscess. Extensive thoracoabdominal aortic dissection, as described above. Current flap begins just distal to the left subclavian artery origin; per report, there is history of surgical repair so there may have been surgical repair of the ascending thoracic aorta. Bilateral pleural effusions, slightly smaller than on earlier exams. Extensive atelectasis as a result. Extensive pulmonary par enchymal disease as detailed above. This may reflect pneumonia or pulmonary edema or both. Evidence of pulmonary arterial hypertension, with dilatation of the pulmonary artery. Considerable ascites fluid. 03/11 Chest US: Small right, trace left pleural effusions, insufficient for safe thoracentesis AF Sepsis Leukocytosis Hypoxia on vent Pneumonia c/b L pleural effusion (recurrent, prior determined to be transudative) - s/p thora 01/21, 1050cc removed Volume overload, BNP >35,0000, likely 2/2 progressive CKD --> ESRD ?Pancreatitis, Lipase >2000 Acute anemia to 5s CONS bacteremia, ?contaminant Aflutter w/ RVR 01/13 BCx 2/2 +S. epi COVID PCR neg Flu neg CXR: Large left pleural effusion. Bilateral interstitial and airspace infiltrates versus edema MRSA nares neg 01/16 BCx NTD 01/17 BCx /2 +Staph auricularis (skin colonizer) 01/18 Resp cx +MDR CRE PsA (S-gent, I-colistin, R-polyB) (Intermediate to Zerbaxa, Resistant to Avycaz) 01/18 C.dif neg 01/18 CXR: Similar opacification of the left hemithorax likely representing combination of pleural effusion with atelectasis versus pneumonia/edema. Decreased but persistent hazy opacity throughout the right lung may represent edema versus infectious/inflammatory process. 01/20 BCx NTD 01/21 L thora 1050 cc removed, cx NTD 01/25 Wound cx from Gtube site +CRE Kleb pna (arnett-R) and MDR PsA (colonizers) 01/26 CT A/P: Limited exam, due to severe diffuse anasarca. Ascites. Bilateral pleural effusions. Basilar pulmonary atelectatic changes and consolidation. Gastrostomy. Atrophic left kidney with a nephroureteral stents again demonstrated. Possible retrococcygeal decubitus changes. Correlate with clinical findings, consider MRI if there is concern for sacral osteomyelitis. Right hip intertrochanteric fracture, also previously demonstrated. Left femoral dialysis catheter. Nonspecific right lobe liver lesion is unchanged, not well- demonstrated. ctasia bordering on aneurysmal dilatation and possible chronic dissection of the distal thoracic aorta, also previously described. JAVIER on CKD On previous admission Sep-Oct 2019 required HD for short period Going to start HD this admission again R/o COVID 01/14 COVID PCR neg 12/29 neg at [facility] per report H/o UTI 10/15 u/a wbc 30-40, nit neg, leuk +3; ucx ESBL P. mirablis, ESBL M. morganii //20 u/a wbc tnct, nit neg, leuk +3; ucx >100k MDR P. stuarti (S Ceftriaxone, Meropenem) 8/25 u/a wbc tnct, nit neg, leuk ; ucx >100k VRE 10/15/19 u/a wbc tnct; ucx >100k ESBL P. stuarti (S ertapenem, aztreonam) H/o transudative pleural effusion 11/28 Sp Thora (w: 169, PMN: 2%, L: 49% , LDH: 57, prot 2.5); cx Neg H/o PNA 10/15/19 Resp cx ESBL P. mirabilis, MDR P.a. (S only to Gent) 09/22 Resp cx + MDR PsA (S-gent; I-colistin; R-levofloxacin, Zosyn, angelo) 09/16/19 Sp cx ESBL P. mirablis H/o PPM site (pocket) infection and pocket abscess 2ry to S. epi-11/2018, sp >6weeks IV vancomycin 11/27 SP ABBIE: no evidence for vegetation on any of the valves 11/26/18 SP PPM removal: OR findings:The fibrous capsule enclosing the generator was then opened and there was a [id number] amount of yellowish fluid drainage. The generator was then removed.Atrial and ventricular leads were detached. The necrotic tissue of the pocket was then removed and the pocket was flushed with an antibiotic solution. Capsule, wound tissue and lead tip cx: Neg 2d echo: no vegetation seen US chest: 4.6 x 3.4 x 0.9 cm hypoechoic/anechoic area overlying left chest pacemaker power pack. This could represent either a discrete fluid collection or a focal area of very edematous tissue. Infected fluid pocket also possible. 11/18 Bcx 3/ S. epi; 11/20 Bcx neg; 11/24 Bcx Neg; 11/27 Bcx Neg CAD s/p CABG GERD/gastritis Afib HTN Dysphagia sp GT Aortic dissection s/p repair 2017 S/p PPM Parkinson's Disease Schizophrenia Anxiety COPD Chronic resp failure s/p trach Hx of tracheal bleeding MD resident ([facility]) VRE and MRSA colonized Plan: Monitor off abx as she is stable 03/21 SP daptomycin #12, Avycaz #16 for VRE and MDR Kleb bacteremia 03/16 SP tobramycin IV #10 for resistant UTI 03/10/20 SP edson #4 empiric, vanco #9 01/31 SP angelo/inh tobra #10 for pna 01/23 SP vanco IV #10 given CONS/GPC bacteremia 01/16 SP Zosyn #2 01/14 SP dex 10mg in ED 12/10 SP IV Gentamycin #10 12/07 SP Meropenem #10 12/01 SP IV Vancomycin #5 11/28 Sp Cefepime #2 and IV Gentamycin x1 Monitor CBC/CMP Monitor temp curve, hemodynamics Monitor resp status D/w RN Thank you for this consult. [facility] will continue to follow. Subjective Allergies: Coded Allergies: No Known Allergies (Unverified , 10/10/17) Afebrile No Leukocytosis Satting well Objective Last 24 Hour Vital Signs Date Time Temp Pulse Resp B/P (MAP) Pulse Ox O2 Delivery O2 Flow Rate FiO2 04/06/20 09:00 61 14 149/61 (90) 98 04/06/20 08:00 98.0 57 13 140/60 (86) 99 04/06/20 08:00 Mechanical Ventilator 04/06/20 08:00 30 04/06/20 07:00 56 14 147/65 (92) 100 04/06/20 06:00 57 14 148/63 (91) 100 04/06/20 05:32 151/59 04/06/20 05:00 57 14 143/65 (91) 99 04/06/20 04:58 55 14 30 04/06/20 04:00 98.0 56 14 151/61 (91) 99 04/06/20 04:00 30 04/06/20 04:00 Mechanical Ventilator 04/06/20 03:37 57 15 30 04/06/20 03:12 56 04/06/20 03:00 55 4 146/62 (90) 100 04/06/20 02:00 53 14 135/74 (94) 100 04/06/20 01:30 58 19 30 04/06/20 01:00 56 14 141/64 (89) 99 04/06/20 00:00 Mechanical Ventilator 04/06/20 00:00 98.0 52 14 144/64 (90) 100 04/05/20 23:06 131/69 04/05/20 23:05 51 04/05/20 23:02 46 14 30 04/05/20 23:00 49 14 131/69 (89) 100 04/05/20 22:00 54 20 137/74 (95) 100 04/05/20 21:00 47 14 131/65 (87) 100 04/05/20 20:36 45 14 30 04/05/20 20:00 Mechanical Ventilator 04/05/20 20:00 30 04/05/20 20:00 97.8 50 14 140/58 (85) 100 04/05/20 19:30 40 14 30 04/05/20 19:23 44 04/05/20 19:00 52 18 139/54 (82) 100 04/05/20 18:00 42 14 124/57 (79) 100 04/05/20 17:55 129/55 04/05/20 17:00 41 14 129/55 (79) 100 04/05/20 16:00 Mechanical Ventilator 04/05/20 16:00 43 04/05/20 16:00 97.8 42 14 123/57 (79) 100 04/05/20 16:00 30 04/05/20 15:00 42 15 131/68 (89) 100 04/05/20 14:52 41 14 30 04/05/20 14:15 127/56 04/05/20 14:00 42 14 127/56 (79) 100 04/05/20 13:00 42 14 135/48 (77) 100 04/05/20 12:00 97.4 51 14 133/55 (81) 100 04/05/20 12:00 Mechanical Ventilator 04/05/20 12:00 30 04/05/20 11:23 49 04/05/20 11:00 43 14 136/53 (80) 100 04/05/20 10:45 38 14 30 04/05/20 10:00 43 15 131/53 (79) 100 Height (Feet): 5 Height (Inches): 3.00 Weight (Pounds): 128 Gen: NAD HEENT: NCAT, trach Pulm: BL chest rise on vent Abd: Soft, ND, +PEG Skin: No visible rashes Neuro: Awake, minimally interactive Lines: R chest Permacath dressing c/d/i Laboratory Tests Test 04/05/20 11:10 04/06/20 05:49 White Blood Count 5.5 K/UL (4.8-10.8) 7.9 K/UL (4.8-10.8) Red Blood Count 2.64 M/UL (4.20-5.40) L 2.51 M/UL (4.20-5.40) L Hemoglobin 7.8 G/DL (12.0-16.0) L 7.6 G/DL (12.0-16.0) L Hematocrit 23.8 % (37.0-47.0) L 22.7 % (37.0-47.0) L Mean Corpuscular Volume 90 FL (80-99) 90 FL (80-99) Mean Corpuscular Hemoglobin 29.6 PG (27.0-31.0) 30.4 PG (27.0-31.0) Mean Corpuscular Hemoglobin Concent 32.9 G/DL (32.0-36.0) 33.6 G/DL (32.0-36.0) Red Cell Distribution Width 13.7 % (11.6-14.8) 14.0 % (11.6-14.8) Platelet Count 234 K/UL (150-450) 254 K/UL (150-450) Mean Platelet Volume 6.1 FL (6.5-10.1) L 5.8 FL (6.5-10.1) L Neutrophils (%) (Auto) % (45.0-75.0) % (45.0-75.0) Lymphocytes (%) (Auto) % (20.0-45.0) % (20.0-45.0) Monocytes (%) (Auto) % (1.0-10.0) % (1.0-10.0) Eosinophils (%) (Auto) % (0.0-3.0) % (0.0-3.0) Basophils (%) (Auto) % (0.0-2.0) % (0.0-2.0) Differential Total Cells Counted 100 Neutrophils % (Manual) 64 % (45-75) Lymphocytes % (Manual) 26 % (20-45) Monocytes % (Manual) 9 % (1-10) Eosinophils % (Manual) 1 % (0-3) Basophils % (Manual) 0 % (0-2) Band Neutrophils 0 % (0-8) Platelet Estimate Adequate Platelet Morphology Normal Hypochromasia 1+ Sodium Level 141 MMOL/L (136-145) 138 MMOL/L (136-145) Potassium Level 4.1 MMOL/L (3.5-5.1) 4.4 MMOL/L (3.5-5.1) Chloride Level 104 MMOL/L (98-107) 102 MMOL/L (98-107) Carbon Dioxide Level 25 MMOL/L (21-32) 27 MMOL/L (21-32) Anion Gap 12 mmol/L (5-15) 9 mmol/L (5-15) Blood Urea Nitrogen 114 mg/dL (7-18) H 125 mg/dL (7-18) H Creatinine 2.8 MG/DL (0.55-1.30) H 3.0 MG/DL (0.55-1.30) H Estimat Glomerular Filtration Rate 18.1 mL/min (>60) 16.7 mL/min (>60) Glucose Level 95 MG/DL (74-106) 124 MG/DL (74-106) H Calcium Level 8.1 MG/DL (8.5-10.1) L 8.0 MG/DL (8.5-10.1) L Phosphorus Level 5.8 MG/DL (2.5-4.9) H Magnesium Level 2.5 MG/DL (1.8-2.4) H Total Bilirubin 0.6 MG/DL (0.2-1.0) Aspartate Amino Transf (AST/SGOT) 38 U/L (15-37) H Alanine Aminotransferase (ALT/SGPT) 19 U/L (12-78) Alkaline Phosphatase 145 U/L (46-116) H Total Protein 5.5 G/DL (6.4-8.2) L Albumin 1.3 G/DL (3.4-5.0) L Globulin 4.2 g/dL Albumin/Globulin Ratio 0.3 (1.0-2.7) L Current Medications Medications (Trade) Dose Ordered Sig/Penny Route PRN Reason Start Time Stop Time Status Last Admin Dose Admin Aspirin (ASA) 81 mg DAILY GT 03/07/20 09:00 04/21/20 08:59 04/06/20 08:43 Chlorhexidine Gluconate (Ling-Hex 2%) 1 applic DAILY@1999 TOPIC 03/03/20 20:00 06/01/20 19:59 04/05/20 20:26 Dextrose (Dextrose 50%) 25 ml Q30M PRN IV Hypoglycemia 03/15/20 07:30 06/13/20 07:29 04/05/20 09:08 Dextrose (Dextrose 50%) 50 ml Q30M PRN IV Hypoglycemia 03/15/20 07:30 06/13/20 07:29 Famotidine (Pepcid) 20 mg BID GT 04/06/20 18:00 07/05/20 17:59 Hydralazine HCl (Apresoline) 20 mg Q6HR GT 04/06/20 12:00 07/04/20 13:14 Hydralazine HCl (Apresoline) 25 mg Q6H PRN GT For High Blood Pressure 03/02/20 22:00 05/31/20 21:59 Hydrocortisone (Anusol HC) 25 mg Q12HR RECTAL 03/23/20 21:00 06/21/20 08:59 04/06/20 08:42 Hydromorphone HCl (Dilaudid) 0.5 mg Q4H PRN IVP For Pain 04/02/20 20:30 04/09/20 20:29 04/06/20 08:55 Metoclopramide HCl (Reglan) 5 mg EVERY 6 HOURS NG 04/06/20 12:00 05/06/20 11:59 Sodium Hypochlorite (Dakin's Quarter Strength) 1 applic BEDTIME TOPIC 04/04/20 21:00 05/02/20 08:59 04/05/20 20:27 Sucralfate (Carafate) 1 gm EVERY 6 HOURS GT 03/17/20 18:00 06/09/20 08:59 04/06/20 05:32 Tramadol HCl (Ultram) 50 mg Q6H PRN ORAL Moderate Pain (Pain Scale 4-6) 03/26/20 19:30 04/09/20 19:29 04/06/20 05:36 Zinc Oxide (Zinc Oxide) 1 applic Q8HR TOPIC 03/25/20 22:00 06/22/20 17:59 04/06/20 05:28 Deni Gilbert MD Apr 06, 2020 09:20
--- NOTE | 2020-04-06 09:47 | NUR ---
RD ASSESSMENT & RECOMMENDATIONS SEE CARE ACTIVITY FOR COMPLETE ASSESSMENT DAILY ESTIMATED NEEDS: Needs based on Critical care, wound, renal dysfunction 59.5 kg 27-22 kcals/kg 0069-8455 total kcals W/ HD (1.5-2.0) g protein/kg 89-119 g total protein Fluid per MD NUTRITION DIAGNOSIS: * Swallowing difficulty R/T dysphagia, respiratory status as evidenced by vent dep via trach, GT Dep. * Increase kcal and pro needs r/t wound healing, renal dysfunction as evidenced by h/o stage 4 sacral wound, and HD. CURRENT TF: Nepro @ 35ml/hr x 24 hrs-> now 40ml/hr ENTERAL NUTRITION RECOMMENDATIONS: Nepro @40ml/hr x 24 hrs + Prosource 1pkt BID to provide 960ml, 1728kcal, 78g+22g prot, 779ml free water * Maintain goal rate of 40ml/hr. * When tolerating at goal, add Prosource 1pkt BID to better meet increased protein needs (additional 11g prot/each) * Water flush per MD/ HOB over 30 degrees ADDITIONAL RECOMMENDATIONS: * Calibrated bed scale, wts fluctuatinkg-> 68kg->76.5kg now * Monitor for HD continuity * WC eval-> w/ TF orders add FRANKLIN in 4oz H2O BID via GT Vit C per nephrology, add Nephrovite 1 tab daily. * Monitor BGs closely for hypoglycemia On Bedside BG checks * Monitor lytes, replete as needed
--- NOTE | 2020-04-06 09:50 | NUR ---
NURSE NOTES: Dr. Jerome called the unit regarding result of chest X-Ray- stated that Aneurym is getting bigger and suggesting CT of chest.
--- NOTE | 2020-04-06 09:56 | Diagnostic Imaging Report ---
Indication: Shortness of breath Technique: XRAY Chest 1v. Comparison: 03/16/2020 Findings: Tracheostomy remains. Right jugular permacath remains. Increased density is again noted in the right lung base with blunting of the right cost phrenic angle. There is also blunting of left costophrenic angle. The aortic arch and distal descending thoracic aorta appear enlarged compared to previous study. However, the patient is rotated. Is unchanged. There is now some infiltrate in the right suprahilar region. Impression: Possible enlargement of the aortic arch and descending thoracic aorta. The possibility of enlarging aortic aneurysm might be considered. Further evaluation with CT of the chest suggested. Right suprahilar infiltrate now present. Bilateral pleural effusions. Haziness in the right base, likely secondary to the pleural effusion. Report called to charge nurse on Hemalatha in ICU at 09 50 04/06/2020. She stated she would notify Dr. Dong.
--- NOTE | 2020-04-06 10:16 | Pulmonology Progress Note ---
Subjective ROS Limited/Unobtainable: Yes Interval Events: Now in ICU for bradycardia Constitutional: Reports: other HEENT: Repors: no symptoms Respiratory: Reports: no symptoms Cardiovascular: Reports: no symptoms Gastrointestinal/Abdominal: Reports: diarrhea Allergies: Coded Allergies: No Known Allergies (Unverified , 10/10/17) All Systems: reviewed and negative except above Objective Last 24 Hour Vital Signs Date Time Temp Pulse Resp B/P (MAP) Pulse Ox O2 Delivery O2 Flow Rate FiO2 04/06/20 09:00 61 14 149/61 (90) 98 04/06/20 08:00 98.0 57 13 140/60 (86) 99 04/06/20 08:00 Mechanical Ventilator 04/06/20 08:00 30 04/06/20 07:34 56 14 30 04/06/20 07:00 56 14 147/65 (92) 100 04/06/20 06:00 57 14 148/63 (91) 100 04/06/20 05:32 151/59 04/06/20 05:00 57 14 143/65 (91) 99 04/06/20 04:58 55 14 30 04/06/20 04:00 98.0 56 14 151/61 (91) 99 04/06/20 04:00 30 04/06/20 04:00 Mechanical Ventilator 04/06/20 03:37 57 15 30 04/06/20 03:12 56 04/06/20 03:00 55 4 146/62 (90) 100 04/06/20 02:00 53 14 135/74 (94) 100 04/06/20 01:30 58 19 30 04/06/20 01:00 56 14 141/64 (89) 99 04/06/20 00:00 Mechanical Ventilator 04/06/20 00:00 98.0 52 14 144/64 (90) 100 04/05/20 23:06 131/69 04/05/20 23:05 51 04/05/20 23:02 46 14 30 04/05/20 23:00 49 14 131/69 (89) 100 04/05/20 22:00 54 20 137/74 (95) 100 04/05/20 21:00 47 14 131/65 (87) 100 04/05/20 20:36 45 14 30 04/05/20 20:00 Mechanical Ventilator 04/05/20 20:00 30 04/05/20 20:00 97.8 50 14 140/58 (85) 100 04/05/20 19:30 40 14 30 04/05/20 19:23 44 04/05/20 19:00 52 18 139/54 (82) 100 04/05/20 18:00 42 14 124/57 (79) 100 04/05/20 17:55 129/55 04/05/20 17:00 41 14 129/55 (79) 100 04/05/20 16:00 Mechanical Ventilator 04/05/20 16:00 43 04/05/20 16:00 97.8 42 14 123/57 (79) 100 04/05/20 16:00 30 04/05/20 15:00 42 15 131/68 (89) 100 04/05/20 14:52 41 14 30 04/05/20 14:15 127/56 04/05/20 14:00 42 14 127/56 (79) 100 04/05/20 13:00 42 14 135/48 (77) 100 04/05/20 12:00 97.4 51 14 133/55 (81) 100 04/05/20 12:00 Mechanical Ventilator 04/05/20 12:00 30 04/05/20 11:23 49 04/05/20 11:00 43 14 136/53 (80) 100 04/05/20 10:45 38 14 30 Intake and Output 04/05/20 04/06/20 19:00 07:00 Intake Total 620 ml 800 ml Output Total 5 ml 0 ml Balance 615 ml 800 ml Intake Free Water 80 ml 40 ml IV Total 360 ml 360 ml Tube Feeding 180 ml 400 ml Output Urine Total 0 ml 0 ml Gastric Drainage Total 5 ml # Bowel Movements 4 2 General Appearance: no acute distress HEENT: atraumatic, status post trach Respiratory: lungs clear Cardiovascular: normal rate, regular rhythm Extremities: other - edema bilateral Laboratory Tests 04/05/20 11:10: White Blood Count 5.5, Red Blood Count 2.64L, Hemoglobin 7.8L, Hematocrit 23.8L, Mean Corpuscular Volume 90, Mean Corpuscular Hemoglobin 29.6, Mean Corpuscular Hemoglobin Concent 32.9, Red Cell Distribution Width 13.7, Platelet Count 234, Mean Platelet Volume 6.1L, Neutrophils (%) (Auto) , Lymphocytes (%) (Auto) , Monocytes (%) (Auto) , Eosinophils (%) (Auto) , Basophils (%) (Auto) , Differential Total Cells Counted 100, Neutrophils % (Manual) 64, Lymphocytes % (Manual) 26, Monocytes % (Manual) 9, Eosinophils % (Manual) 1, Basophils % (Manual) 0, Band Neutrophils 0, Platelet Estimate Adequate, Platelet Morphology Normal, Hypochromasia 1+, Sodium Level 141, Potassium Level 4.1, Chloride Level 104, Carbon Dioxide Level 25, Anion Gap 12, Blood Urea Nitrogen 114H, Creatinine 2.8H, Estimat Glomerular Filtration Rate 18.1, Glucose Level 95, Calcium Level 8.1L 04/06/20 05:49: White Blood Count 7.9, Red Blood Count 2.51L, Hemoglobin 7.6L, Hematocrit 22.7L, Mean Corpuscular Volume 90, Mean Corpuscular Hemoglobin 30.4, Mean Corpuscular Hemoglobin Concent 33.6, Red Cell Distribution Width 14.0, Platelet Count 254, Mean Platelet Volume 5.8L, Neutrophils (%) (Auto) , Lymphocytes (%) (Auto) , Monocytes (%) (Auto) , Eosinophils (%) (Auto) , Basophils (%) (Auto) , Sodium Level 138, Potassium Level 4.4, Chloride Level 102, Carbon Dioxide Level 27, Anion Gap 9, Blood Urea Nitrogen 125H, Creatinine 3.0H, Estimat Glomerular Filtration Rate 16.7, Glucose Level 124H, Calcium Level 8.0L, Phosphorus Level 5.8H, Magnesium Level 2.5H, Total Bilirubin 0.6, Aspartate Amino Transf (AST/SGOT) 38H, Alanine Aminotransferase (ALT/SGPT) 19, Alkaline Phosphatase 145H, Total Protein 5.5L, Albumin 1.3L, Globulin 4.2, Albumin/Globulin Ratio 0.3L 04/06/20 09:51: Arterial Blood pH 7.494H, Arterial Blood Partial Pressure CO2 33.7L, Arterial Blood Partial Pressure O2 66.1L, Arterial Blood HCO3 25.3, Arterial Blood Oxygen Saturation 92.2L, Arterial Blood Base Excess 2.1H, Rojas Test N/a Current Medications Medications (Trade) Dose Ordered Sig/Penny Route PRN Reason Start Time Stop Time Status Last Admin Dose Admin Aspirin (ASA) 81 mg DAILY GT 03/07/20 09:00 04/21/20 08:59 04/06/20 08:43 Chlorhexidine Gluconate (Ling-Hex 2%) 1 applic DAILY@2000 TOPIC 03/03/20 20:00 06/01/20 19:59 04/05/20 20:26 Dextrose (Dextrose 50%) 25 ml Q30M PRN IV Hypoglycemia 03/15/20 07:30 06/13/20 07:29 04/05/20 09:08 Dextrose (Dextrose 50%) 50 ml Q30M PRN IV Hypoglycemia 03/15/20 07:30 06/13/20 07:29 Famotidine (Pepcid) 20 mg BID GT 04/06/20 18:00 07/05/20 17:59 Hydralazine HCl (Apresoline) 20 mg Q6HR GT 04/06/20 12:00 07/04/20 13:14 Hydralazine HCl (Apresoline) 25 mg Q6H PRN GT For High Blood Pressure 03/02/20 22:00 05/31/20 21:59 Hydrocortisone (Anusol HC) 25 mg Q12HR RECTAL 03/23/20 21:00 06/21/20 08:59 04/06/20 08:42 Hydromorphone HCl (Dilaudid) 0.5 mg Q4H PRN IVP For Pain 04/02/20 20:30 04/09/20 20:29 04/06/20 08:55 Metoclopramide HCl (Reglan) 5 mg EVERY 6 HOURS NG 04/06/20 12:00 05/06/20 11:59 Sodium Hypochlorite (Dakin's Quarter Strength) 1 applic BEDTIME TOPIC 04/04/20 21:00 05/02/20 08:59 04/05/20 20:27 Sucralfate (Carafate) 1 gm EVERY 6 HOURS GT 03/17/20 18:00 06/09/20 08:59 04/06/20 05:32 Tramadol HCl (Ultram) 50 mg Q6H PRN ORAL Moderate Pain (Pain Scale 4-6) 03/26/20 19:30 04/09/20 19:29 04/06/20 05:36 Zinc Oxide (Zinc Oxide) 1 applic Q8HR TOPIC 03/25/20 22:00 06/22/20 17:59 04/06/20 05:28 Assessment/Plan Assessment/Plan 1. Chronic respiratory failure. 2. Mechanical ventilation. Continue AC mode; 40% FiO2 saturating well 3. Chronic tracheostomy. 4. Chronic G-tube. 5. Anemia. 6. Renal failure. On HD 7. Leukocytosis and sepsis. Resolved; ID following 8. Sepsis UTI 9. COVID-19 negative 10. Bradycardia; now in ICU 11. Gastric ulcer - on PPI 12. Pleural effusion; on HD 13. Ascites s/p paracentesis (2/3), 2.3L out 14. DVT ppx Elijah Stephen MD Apr 06, 2020 10:16
--- NOTE | 2020-04-06 10:30 | NUR ---
NURSE NOTES: Pt turned and repositioned. Tube feeds increased to 40mL/hr.
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
--- NOTE | 2020-04-06 11:30 | NUR ---
NURSE NOTES: Dr Dong informed of cxray results, as reported by Dr Jerome, Radiologist.
--- NOTE | 2020-04-06 11:38 | NUR ---
RADIOLOGY DEPT., CHEST X-RAY DONE.-P.DYE
[2020-04-06] MEDS: Metoclopramide 10mg/10ml Liq NG SCH ×3 (12:09→23:19)
--- NOTE | 2020-04-06 12:53 | NUR ---
NURSE NOTES: Leakage noted around the Gtube site. Dressing changed and Gtube secured
--- NOTE | 2020-04-06 13:47 | NUR ---
SENIOR OCCUPATIONAL THERAPISTINSULATION CUPOLA OPERATOR SI: RESP FAILURE TRACH/VENT DEPENDENT, ACUTE RENAL FAILURE T. 98.3 HR 54 RR 14 B/P 144/62 AC 14 TV 500 FIO2 30% PEEP 5 BUN 125 CR. 3.0 IS: PEPCID REGLAN TRANSFER OUT TO A HIGHER LEVEL OF CARE ICU STATUS
--- NOTE | 2020-04-06 13:50 | NUR ---
CONCERT PROMOTER NOTES MESSAGE LEFT FOR GEMMA BOONE FROM [facility]; NET FOR TRANSFER TO A HIGHER LEVEL OF CARE. GEMMA [phone] Addendum: 04/06/20 at 1613 by KATERIN CARRILLO RN CM RECEIVED A CALL BACK FROM GEMMA. GEMMA WILL EMAIL THE CONTRACTED LIST OF HOSPITALS FOR A HIGHER LEVEL OF CARE. INQUIRY FAXED TO [facility].
--- NOTE | 2020-04-06 14:00 | NUR ---
NURSE NOTES: Report given to ERASMO Penny
[2020-04-06] MEDS ORDERED: Tubing IV Secondary IV ONE (14:02)
[2020-04-06] MEDS ORDERED: NS Irrig 1000ml ONE (14:02)
--- NOTE | 2020-04-06 14:30 | NUR ---
NURSE NOTES: Received report from Alina ZIMMERMAN. Patient received awake - unable to speak due to Trach to vent.- able to mouth some words and able to follow simple commands. Able to wiggle both lower ext, able to move both arms when asked. Both arms contracted. PIV IV sites patent. GT in place - receiving Patient on P200 mattress with Stage IV @ sacral area and stage II @ left ischial area
--- NOTE | 2020-04-06 16:00 | NUR ---
Patient resting comfortably. V/S stable . PM care rendered - kept clean and dry.Placed comfortably in bed-
--- NOTE | 2020-04-06 16:24 | NUR ---
INSURANCE CLINICALS/REVIEW FAXED TO [facility] T: [phone] F: [phone]
--- NOTE | 2020-04-06 17:50 | NUR ---
NURSE NOTES: SL @ right hand came out accidentally - new SL started @ RH with #20 without difficulty
--- NOTE | 2020-04-06 19:00 | NUR ---
NURSE NOTES: Report given to Cindy Gurrola RN. Endorsed
--- NOTE | 2020-04-06 19:05 | NUR ---
NURSE NOTES: received pt from Hemalatha Banks RN., pt is resting on the bed, AOx1 at this time. SB at this time HR ranges from 55-62s. vent is marquise 7. AC 14, TV 500, Fio2 30% Peep 5. no s/s of respiratory distress at this time. Gtube site is clean, patent, and dry. gauge in place, no residual noted at this time. Nephro is running at 40ml/hr at this time. PermCath on right chest noted, left FA 20g right hand 20G IV sites are intact, clean, and patent as well. no active bleeding is noted at this time. call light within reach. will continue to monitor pt with plan of care. bed at the lowest position, alarmed, and locked.
[2020-04-06] MEDS: Dyna-Hex 2% Top Sol 2oz TOPIC SCH (19:09)
[2020-04-06] MEDS: HydrALAZINE 25mg tab GT PRN (19:10)
--- NOTE | 2020-04-06 19:10 | NUR ---
NURSE NOTES: pt has SBP greater than 160. so PRN hydralazine 25mg given. will continue to monitor pt.
--- NOTE | 2020-04-06 20:30 | NUR ---
NURSE NOTES: pt BP is 153/85 at this time, pt is sleeping. no s/s of pain or SOB. will closely monitor pt.
[2020-04-06] MEDS: Dakin's 0.125% Soln (Quarter Strength) 16oz TOPIC SCH (21:07)
--- NOTE | 2020-04-06 22:02 | NUR ---
NURSE NOTES: pt's SBP is lower than 160 at this time. pt is resting comfortably. call light within reach. will continue to monitor pt. no active bleeding noted.
[2020-04-06] MEDS: HydrALAZINE 50mg tab GT SCH (23:18)
[2020-04-07] VITALS (10 sets, daily range): BP systolic 127–158; BP diastolic 51–137
--- NOTE | 2020-04-07 | NUR ---
NURSE NOTES: Dr. Dong at the bedside talking to the pt. Made Dr. Dong aware regarding pt's consistent high bp, that SBP ranges from 150-163 with PRN hydralazine. per Dr. Dong, increase scheduled hydralazine to 50mg. noted. and Der. Dong will let Dr. Willams know regarding high BP. noted.
[2020-04-07] MEDS: traMADol 50mg tab ORAL PRN ×2 (01:32→15:38)
--- NOTE | 2020-04-07 01:37 | Cardiology Progress Note ---
Subjective DATE OF SERVICE: Apr 06, 2020 S/p HD/UF Heart rates improved. BP parameterg stable CT scan revealed extensive thoracoabd aortic dissection- Chase Type B Dialysis per renal Pt is s/p paracentesis (50cc) Objective Last 24 Hour Vital Signs Date Time Temp Pulse Resp B/P (MAP) Pulse Ox O2 Delivery O2 Flow Rate FiO2 04/07/20 01:00 65 15 146/51 (82) 98 04/07/20 00:00 Mechanical Ventilator Mechanical Ventilator 04/07/20 00:00 98.8 65 17 141/58 (85) 97 04/07/20 00:00 30 04/06/20 23:36 66 18 30 04/06/20 23:18 158/77 04/06/20 23:00 67 17 155/68 (97) 98 04/06/20 22:00 66 17 158/77 (104) 99 04/06/20 21:00 62 14 155/76 (102) 97 04/06/20 20:00 Mechanical Ventilator Mechanical Ventilator 04/06/20 20:00 98.0 65 18 153/85 (107) 98 04/06/20 20:00 30 04/06/20 19:48 64 04/06/20 19:41 61 16 30 04/06/20 19:10 162/69 04/06/20 19:00 60 14 162/69 (100) 97 04/06/20 18:00 58 14 152/65 (94) 97 04/06/20 17:34 155/71 04/06/20 17:00 56 14 155/71 (99) 96 04/06/20 16:00 Mechanical Ventilator Mechanical Ventilator 04/06/20 16:00 97.8 66 14 151/74 (99) 97 04/06/20 16:00 30 04/06/20 16:00 58 04/06/20 15:37 61 15 30 04/06/20 15:00 65 14 153/61 (91) 98 04/06/20 14:00 61 14 150/64 (92) 97 04/06/20 13:00 56 14 149/65 (93) 94 04/06/20 12:08 149/62 04/06/20 12:00 54 04/06/20 12:00 30 04/06/20 12:00 98.3 54 14 149/62 (91) 97 04/06/20 12:00 Mechanical Ventilator 04/06/20 11:24 54 14 30 04/06/20 11:00 52 14 144/61 (88) 97 04/06/20 10:00 53 14 149/61 (90) 97 04/06/20 09:00 61 14 149/61 (90) 98 04/06/20 08:00 98.0 57 13 140/60 (86) 99 04/06/20 08:00 Mechanical Ventilator 04/06/20 08:00 30 04/06/20 08:00 54 04/06/20 07:34 56 14 30 04/06/20 07:00 56 14 147/65 (92) 100 04/06/20 06:00 57 14 148/63 (91) 100 04/06/20 05:32 151/59 04/06/20 05:00 57 14 143/65 (91) 99 04/06/20 04:58 55 14 30 04/06/20 04:00 98.0 56 14 151/61 (91) 99 04/06/20 04:00 30 04/06/20 04:00 Mechanical Ventilator 04/06/20 03:37 57 15 30 04/06/20 03:12 56 04/06/20 03:00 55 4 146/62 (90) 100 04/06/20 02:00 53 14 135/74 (94) 100 HEENT: Thin Trach secretions RHYTHM: NSR, SB LUNGS: bilateral rhonchi - few, trach site clean CARDIAC: normal rate, regular rhythm, normal S1 and S2 ABDOMEN: normal bowel sounds, non tender, soft, G-Tube intact EXTREMITIES: normal range of motion, non-tender, normal inspection Laboratory Tests Test 04/06/20 05:49 04/06/20 09:51 White Blood Count 7.9 K/UL (4.8-10.8) Red Blood Count 2.51 M/UL (4.20-5.40) L Hemoglobin 7.6 G/DL (12.0-16.0) L Hematocrit 22.7 % (37.0-47.0) L Mean Corpuscular Volume 90 FL (80-99) Mean Corpuscular Hemoglobin 30.4 PG (27.0-31.0) Mean Corpuscular Hemoglobin Concent 33.6 G/DL (32.0-36.0) Red Cell Distribution Width 14.0 % (11.6-14.8) Platelet Count 254 K/UL (150-450) Mean Platelet Volume 5.8 FL (6.5-10.1) L Neutrophils (%) (Auto) % (45.0-75.0) Lymphocytes (%) (Auto) % (20.0-45.0) Monocytes (%) (Auto) % (1.0-10.0) Eosinophils (%) (Auto) % (0.0-3.0) Basophils (%) (Auto) % (0.0-2.0) Sodium Level 138 MMOL/L (136-145) Potassium Level 4.4 MMOL/L (3.5-5.1) Chloride Level 102 MMOL/L (98-107) Carbon Dioxide Level 27 MMOL/L (21-32) Anion Gap 9 mmol/L (5-15) Blood Urea Nitrogen 125 mg/dL (7-18) H Creatinine 3.0 MG/DL (0.55-1.30) H Estimat Glomerular Filtration Rate 16.7 mL/min (>60) Glucose Level 124 MG/DL (74-106) H Calcium Level 8.0 MG/DL (8.5-10.1) L Phosphorus Level 5.8 MG/DL (2.5-4.9) H Magnesium Level 2.5 MG/DL (1.8-2.4) H Total Bilirubin 0.6 MG/DL (0.2-1.0) Aspartate Amino Transf (AST/SGOT) 38 U/L (15-37) H Alanine Aminotransferase (ALT/SGPT) 19 U/L (12-78) Alkaline Phosphatase 145 U/L (46-116) H Total Protein 5.5 G/DL (6.4-8.2) L Albumin 1.3 G/DL (3.4-5.0) L Globulin 4.2 g/dL Albumin/Globulin Ratio 0.3 (1.0-2.7) L Arterial Blood pH 7.494 (7.350-7.450) Arterial Blood Partial Pressure CO2 33.7 mmHg (35.0-45.0) L Arterial Blood Partial Pressure O2 66.1 mmHg (75.0-100.0) L Arterial Blood HCO3 25.3 mmol/L (22.0-26.0) Arterial Blood Oxygen Saturation 92.2 % (95-100) L Arterial Blood Base Excess 2.1 (-2-2) H Rojas Test N/a Assessment/Plan Assessment/Plan Aortic dissections - Acosta B Sepsis with recovered shock Sinus node disease with bradycardia Hx pacemaker explant Ischemic cardiomyopathy - hx CABG? Paroxysmal Atrial Fib Respiratory failure with trach Hx thoracic aortic aneurysm repair ESRD Anemia HypoPO4 Hypertension/HHD with rising BP range Remains off beta blockers. DC metoclopramide, which can aggravate bradycardia. No need for emergent pacemaker at present. 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 Non-surgical mngmt Deni Willams MD Apr 07, 2020 01:37
--- NOTE | 2020-04-07 02:00 | NUR ---
NURSE NOTES: cleaned pt, oral care given, oral suctioned. provided new gown, new blankets. changed wound dressing per protocol. call light within reach. will continue to monitor pt. small BM noted. no active bleeding noted at this time.
[2020-04-07] MEDS: HydrALAZINE 25mg tab GT PRN (03:36)
[2020-04-07] MEDS: HYDROmorphone 1mg/ml Carpuject IVP PRN ×3 (03:37→15:37)
--- NOTE | 2020-04-07 03:52 | NUR ---
NURSE NOTES: left voice mail to Dr. Willams to question regarding transferring pt to [facility]/SDU, because pt is still high SBP ranges [id number] to 163. already given PRN hydralazine with pain medicines, and already gave all scheduled hydralazine (that are increased dose to 50mg) to keep SBP low as possible. However, pt's SBP still ranges high. will wait for call back.
[2020-04-07 04:21] LABS: BASOPHILS % (AUTO) 0.5 % (0.0-2.0); EOSINOPHILS % (AUTO) 2.6 % (0.0-3.0); HEMATOCRIT 24.8 % (37.0-47.0); HEMOGLOBIN 8.1 G/DL (12.0-16.0); LYMPHOCYTES % (AUTO) 26.2 % (20.0-45.0); MEAN CORPUSCULAR VOLUME 92 FL (80-99); MONOCYTES % (AUTO) 5.9 % (1.0-10.0); NEUTROPHILS % (AUTO) 64.7 % (45.0-75.0); PLATELET COUNT 253 K/UL (150-450); RED BLOOD COUNT 2.69 M/UL (4.20-5.40); RED CELL DISTRIBUTION WIDTH 14.1 % (11.6-14.8); WHITE BLOOD COUNT 8.1 K/UL (4.8-10.8)
[2020-04-07 04:56] LABS: ALBUMIN 1.4 G/DL (3.4-5.0); ALBUMIN/GLOBULIN RATIO 0.3 (1.0-2.7); BILIRUBIN,TOTAL 0.6 MG/DL (0.2-1.0); CALCIUM 8.2 MG/DL (8.5-10.1); CREATININE 3.1 MG/DL (0.55-1.30)
--- NOTE | 2020-04-07 05:00 | NUR ---
NURSE NOTES: per pleating supervisor Luisana, we have to transfer the pt to [facility]. made pleating supervisor aware regarding pt's high bp with diagnosis. will carry on.
[2020-04-07] MEDS: HydrALAZINE 50mg tab GT SCH ×3 (05:21→17:55)
[2020-04-07] MEDS: Metoclopramide 10mg/10ml Liq NG SCH ×3 (05:21→17:55)
[2020-04-07] MEDS: Sucralfate 1gm tab GT SCH ×3 (05:21→17:55)
[2020-04-07] MEDS: Zinc Oxide Oint 2oz TOPIC SCH ×3 (05:21→22:25)
--- NOTE | 2020-04-07 05:40 | NUR ---
TRANSFER TO FLOOR: Patient transferred to [SDU], per [Dr. Willams]. Belongings and medications given to brought with me to the SDU. Family and or S/O informed of transfer.
--- NOTE | 2020-04-07 06:53 | Hematology/Onc Progress Note ---
Assessment/Plan Assessment/Plan # Leukocytosis, now with likely bacteremia, as per ID care --> Cxr: : Large left abiola consolidation/effusion --> wbc 30-->40-->27->30->29-->35->32-->28-->21->10.2-->6.6 --> ABX angelo/vanc-->tobra/edson/vanc-->dapto/ceftazadine->off abx --> smear reviewed --> ID recs are noted # Anemia of chronic disease due to underlying chronic medical issues, multifactorial --> Anemia workup has been reviewed, cw acd --> No evidence of hemolysis is noted, peripheral smear has been reviewed. --> Hgb goal >7. Transfuse prn. --> Epogen required in prior --> Medications have been reviewed --> low threshold for gi evaluation in case has occult + --> hgb 1.9-->5-->7.1-->8.8-->8.1->7.5-> 8.2-->6. 8-->9.2-->8.4->7.7-->7.1-->8.8->8.7-->8.2 --> 1 unit prbc1/17, 2 units 01/15, 03/02, 03/18, 03/24 --> gi eval as needed # Elevated tumor markers, cea and ca 19.9 --> reviewed prior 01/27/20 cat scan a/p --> no masses noted, hold off further extensive w/u # Thrombocytopenia likely reactive v medication induced --> plt 200-->129->91-->86->100->78-->86-->87-->125->135 --> transfuse as needed --> r/o dic, has been ruled out --> anticoag as needed # Coagulopathy with inr 1.5 --> consider vit k/ffp as needed preprocedure --> labs noted # Aortic dissection as seen on Ct ==> when stable, consider transfer hloc # JAVIER initially >2 --> on ivfs --> per renal # Elevated d-dimer, likely infection related --> venous duplex prior neg --> in prior neg # Dysphagia s/p peg --> as per gi # Thoracic aortic dissection --> s/p repair early 2017 # Chronic Resp failure -> s/p trach/vent # Psychiatric history on ativan/haldol # [place] resident # Dvt ppx --> scds The timing of this note does not necessarily reflect the time of the patient was seen. Greatly appreciate consultation. Subjective Allergies: Coded Allergies: No Known Allergies (Unverified , 10/10/17) Subjective 03/04 for 1 unit transfusion this am as hgb remains low, wbc better 03/05 egd was done did show large nonbleeding gastric ulcer, high tumor markers 03/06 nv, with davis overnight, bp remains stable, with occult + stool, roman Rn 03/09 nv, remains stable, on vanc/tobra/edson, meds reviewed, no bleeding 03/10 nv, on vent, no bleeding, receiving abx, no night sweats 03/11 nv, dw surgeon and pcp, with aortic dissection to transfer [facility] when stable 03/12 nv, labs reviewed, wbc 21, hgb 7.5, otherwise is comfortable 03/13 nv, labs noted, no bleeding, wbc 13, hgb improved, meds reviewed 03/15 nv, meds reviewed, labs noted, no bleeding, on vent 03/16 nv/tv, peg, meds noted, hgb remains stable, improved to 10 03/17 s/p egd, with gastric ulceration noted, hgb stable 03/18 labs noted, hgb 6.8, to get 1 unit prbc, meds reviewed 03/19 hgb 9.2, plt 78, no hemoptysis, is comfortable 03/20 labs reviewed, meds noted, no bleeding, dw rn 03/22 wound treatment, vent, with gtube, labs reviewed, roman rn 03/23 labs reviewed, meds noted, no bleeding, with gt 03/24 large bm overnight that was bloody, hgb 7.1, roman rn 03/25 labs pending this am, comfortable, nsr, meds noted 03/26 nv, vent, with gt, labs reviewed, hgb 8.8 03/27 nv, vent, labs reviewed, with gt, hgb stable 03/29 nv, vent, labs pending, meds reviewed, no bleeding 03/30 nv, t/v, with gt feeds, labs reviewed, meds noted 03/31 nv, t/v, oral secretions were suctioned, meds reviewed 04/01 nv, t/v, labs are reviewed, meds noted, hgb 7.4 04/02 gt leaking, facial grimacing, labs noted, no bleeding, dw rn 04/03 nv, labs noted, no bleeding, dw rn, h/h stable 04/04 nv, labs reviewed, gtube replacement as per Dr. Mccauley 04/05 nv, labs reviewed, meds noted no bleeding, dw rn 04/06 nv, labs, meds noted, no bleeding, on vt, no new changes 04/07 nv, meds reviewed, labs noted, no bleeding, bp was high on, transferred to icu Objective Objective Current Medications Medications (Trade) Dose Ordered Sig/Penny Route PRN Reason Start Time Stop Time Status Last Admin Dose Admin Aspirin (ASA) 81 mg DAILY GT 03/07/20 09:00 04/21/20 08:59 04/06/20 08:43 Chlorhexidine Gluconate (Ling-Hex 2%) 1 applic DAILY@1999 TOPIC 03/03/20 20:00 06/01/20 19:59 04/06/20 19:09 Dextrose (Dextrose 50%) 25 ml Q30M PRN IV Hypoglycemia 03/15/20 07:30 06/13/20 07:29 04/05/20 09:08 Dextrose (Dextrose 50%) 50 ml Q30M PRN IV Hypoglycemia 03/15/20 07:30 06/13/20 07:29 Famotidine (Pepcid) 20 mg BID GT 04/06/20 18:00 07/05/20 17:59 04/06/20 17:34 Hydralazine HCl (Apresoline) 25 mg Q6H PRN GT For High Blood Pressure 03/02/20 22:00 05/31/20 21:59 04/07/20 03:36 Hydralazine HCl (Apresoline) 50 mg Q6HR GT 04/07/20 00:00 07/06/20 00:00 04/07/20 05:21 Hydrocortisone (Anusol HC) 25 mg Q12HR RECTAL 03/23/20 21:00 06/21/20 08:59 04/06/20 21:07 Hydromorphone HCl (Dilaudid) 0.5 mg Q4H PRN IVP For Pain 04/02/20 20:30 04/09/20 20:29 04/07/20 03:37 Metoclopramide HCl (Reglan) 5 mg EVERY 6 HOURS NG 04/06/20 12:00 05/06/20 11:59 04/07/20 05:21 Sodium Hypochlorite (Dakin's Quarter Strength) 1 applic BEDTIME TOPIC 04/04/20 21:00 05/02/20 08:59 04/06/20 21:07 Sucralfate (Carafate) 1 gm EVERY 6 HOURS GT 03/17/20 18:00 06/09/20 08:59 04/07/20 05:21 Tramadol HCl (Ultram) 50 mg Q6H PRN ORAL Moderate Pain (Pain Scale 4-6) 03/26/20 19:30 04/09/20 19:29 04/07/20 01:32 Zinc Oxide (Zinc Oxide) 1 applic Q8HR TOPIC 03/25/20 22:00 06/22/20 17:59 04/07/20 05:21 Last 24 Hour Vital Signs Date Time Temp Pulse Resp B/P (MAP) Pulse Ox O2 Delivery O2 Flow Rate FiO2 04/07/20 05:21 155/77 04/07/20 05:00 72 15 158/65 (96) 98 04/07/20 04:00 30 04/07/20 04:00 Mechanical Ventilator Mechanical Ventilator 04/07/20 04:00 98.5 70 14 157/137 (144) 96 04/07/20 03:42 66 04/07/20 03:36 160/77 04/07/20 03:31 66 14 30 04/07/20 03:00 67 17 153/85 (107) 98 04/07/20 02:00 68 22 148/65 (92) 98 04/07/20 01:00 65 15 146/51 (82) 98 04/07/20 00:20 68 04/07/20 00:00 Mechanical Ventilator Mechanical Ventilator 04/07/20 00:00 98.8 65 17 141/58 (85) 97 04/07/20 00:00 30 04/06/20 23:36 66 18 30 04/06/20 23:18 158/77 04/06/20 23:00 67 17 155/68 (97) 98 04/06/20 22:00 66 17 158/77 (104) 99 04/06/20 21:00 62 14 155/76 (102) 97 04/06/20 20:00 Mechanical Ventilator Mechanical Ventilator 04/06/20 20:00 98.0 65 18 153/85 (107) 98 04/06/20 20:00 30 04/06/20 19:48 64 04/06/20 19:41 61 16 30 04/06/20 19:10 162/69 04/06/20 19:00 60 14 162/69 (100) 97 04/06/20 18:00 58 14 152/65 (94) 97 04/06/20 17:34 155/71 04/06/20 17:00 56 14 155/71 (99) 96 04/06/20 16:00 Mechanical Ventilator Mechanical Ventilator 04/06/20 16:00 97.8 66 14 151/74 (99) 97 04/06/20 16:00 30 04/06/20 16:00 58 04/06/20 15:37 61 15 30 04/06/20 15:00 65 14 153/61 (91) 98 04/06/20 14:00 61 14 150/64 (92) 97 04/06/20 13:00 56 14 149/65 (93) 94 04/06/20 12:08 149/62 04/06/20 12:00 54 04/06/20 12:00 30 04/06/20 12:00 98.3 54 14 149/62 (91) 97 04/06/20 12:00 Mechanical Ventilator 04/06/20 11:24 54 14 30 04/06/20 11:00 52 14 144/61 (88) 97 04/06/20 10:00 53 14 149/61 (90) 97 04/06/20 09:00 61 14 149/61 (90) 98 04/06/20 08:00 98.0 57 13 140/60 (86) 99 04/06/20 08:00 Mechanical Ventilator 04/06/20 08:00 30 04/06/20 08:00 54 04/06/20 07:34 56 14 30 04/06/20 07:00 56 14 147/65 (92) 100 04/06/20 06:00 57 14 148/63 (91) 100 04/06/20 05:32 151/59 04/06/20 05:00 57 14 143/65 (91) 99 04/06/20 04:58 55 14 30 04/06/20 04:00 98.0 56 14 151/61 (91) 99 04/06/20 04:00 30 04/06/20 04:00 Mechanical Ventilator 04/06/20 03:37 57 15 30 04/06/20 03:12 56 04/06/20 03:00 55 4 146/62 (90) 100 04/06/20 02:00 53 14 135/74 (94) 100 04/06/20 01:30 58 19 30 04/06/20 01:00 56 14 141/64 (89) 99 04/06/20 00:00 Mechanical Ventilator 04/06/20 00:00 98.0 52 14 144/64 (90) 100 04/05/20 23:06 131/69 04/05/20 23:05 51 04/05/20 23:02 46 14 30 04/05/20 23:00 49 14 131/69 (89) 100 04/05/20 22:00 54 20 137/74 (95) 100 04/05/20 21:00 47 14 131/65 (87) 100 04/05/20 20:36 45 14 30 04/05/20 20:00 Mechanical Ventilator 04/05/20 20:00 30 04/05/20 20:00 97.8 50 14 140/58 (85) 100 04/05/20 19:30 40 14 30 04/05/20 19:23 44 04/05/20 19:00 52 18 139/54 (82) 100 04/05/20 18:00 42 14 124/57 (79) 100 04/05/20 17:55 129/55 04/05/20 17:00 41 14 129/55 (79) 100 04/05/20 16:00 Mechanical Ventilator 04/05/20 16:00 43 04/05/20 16:00 97.8 42 14 123/57 (79) 100 04/05/20 16:00 30 04/05/20 15:00 42 15 131/68 (89) 100 04/05/20 14:52 41 14 30 04/05/20 14:15 127/56 04/05/20 14:00 42 14 127/56 (79) 100 04/05/20 13:00 42 14 135/48 (77) 100 04/05/20 12:00 97.4 51 14 133/55 (81) 100 04/05/20 12:00 Mechanical Ventilator 04/05/20 12:00 30 04/05/20 11:23 49 04/05/20 11:00 43 14 136/53 (80) 100 04/05/20 10:45 38 14 30 04/05/20 10:00 43 15 131/53 (79) 100 04/05/20 09:00 47 18 131/54 (79) 100 04/05/20 08:11 46 04/05/20 08:00 Mechanical Ventilator 04/05/20 08:00 97.3 43 14 127/60 (82) 100 04/05/20 08:00 30 04/05/20 07:15 49 14 30 04/05/20 07:00 40 14 119/72 (88) 100 Intake and Output 04/06/20 04/07/20 19:00 07:00 Intake Total 885 ml 480 ml Output Total 0 ml 0 ml Balance 885 ml 480 ml Intake Free Water 80 ml 40 ml IV Total 60 ml Tube Feeding 475 ml 440 ml Other 270 ml Output Urine Total 0 ml 0 ml # Bowel Movements 1 Labs Test 04/04/20 17:19 04/05/20 09:06 04/05/20 11:10 04/06/20 05:49 Arterial Blood pH 7.609 (7.350-7.450) 7.554 (7.350-7.450) Arterial Blood Partial Pressure CO2 28.9 mmHg (35.0-45.0) 27.7 mmHg (35.0-45.0) Arterial Blood Partial Pressure O2 216.3 mmHg (75.0-100.0) 89.7 mmHg (75.0-100.0) Arterial Blood HCO3 28.3 mmol/L (22.0-26.0) 23.9 mmol/L (22.0-26.0) Arterial Blood Oxygen Saturation 98.4 % (95-100) 95.9 % (95-100) Arterial Blood Base Excess 6.9 (-2-2) 1.8 (-2-2) Rojas Test Positive Positive White Blood Count 5.5 K/UL (4.8-10.8) 7.9 K/UL (4.8-10.8) Red Blood Count 2.64 M/UL (4.20-5.40) 2.51 M/UL (4.20-5.40) Hemoglobin 7.8 G/DL (12.0-16.0) 7.6 G/DL (12.0-16.0) Hematocrit 23.8 % (37.0-47.0) 22.7 % (37.0-47.0) Mean Corpuscular Volume 90 FL (80-99) 90 FL (80-99) Mean Corpuscular Hemoglobin 29.6 PG (27.0-31.0) 30.4 PG (27.0-31.0) Mean Corpuscular Hemoglobin Concent 32.9 G/DL (32.0-36.0) 33.6 G/DL (32.0-36.0) Red Cell Distribution Width 13.7 % (11.6-14.8) 14.0 % (11.6-14.8) Platelet Count 234 K/UL (150-450) 254 K/UL (150-450) Mean Platelet Volume 6.1 FL (6.5-10.1) 5.8 FL (6.5-10.1) Neutrophils (%) (Auto) % (45.0-75.0) % (45.0-75.0) Lymphocytes (%) (Auto) % (20.0-45.0) % (20.0-45.0) Monocytes (%) (Auto) % (1.0-10.0) % (1.0-10.0) Eosinophils (%) (Auto) % (0.0-3.0) % (0.0-3.0) Basophils (%) (Auto) % (0.0-2.0) % (0.0-2.0) Differential Total Cells Counted 100 Neutrophils % (Manual) 64 % (45-75) Lymphocytes % (Manual) 26 % (20-45) Monocytes % (Manual) 9 % (1-10) Eosinophils % (Manual) 1 % (0-3) Basophils % (Manual) 0 % (0-2) Band Neutrophils 0 % (0-8) Platelet Estimate Adequate Platelet Morphology Normal Hypochromasia 1+ Sodium Level 141 MMOL/L (136-145) 138 MMOL/L (136-145) Potassium Level 4.1 MMOL/L (3.5-5.1) 4.4 MMOL/L (3.5-5.1) Chloride Level 104 MMOL/L (98-107) 102 MMOL/L (98-107) Carbon Dioxide Level 25 MMOL/L (21-32) 27 MMOL/L (21-32) Anion Gap 12 mmol/L (5-15) 9 mmol/L (5-15) Blood Urea Nitrogen 114 mg/dL (7-18) 125 mg/dL (7-18) Creatinine 2.8 MG/DL (0.55-1.30) 3.0 MG/DL (0.55-1.30) Estimat Glomerular Filtration Rate 18.1 mL/min (>60) 16.7 mL/min (>60) Glucose Level 95 MG/DL (74-106) 124 MG/DL (74-106) Calcium Level 8.1 MG/DL (8.5-10.1) 8.0 MG/DL (8.5-10.1) Phosphorus Level 5.8 MG/DL (2.5-4.9) Magnesium Level 2.5 MG/DL (1.8-2.4) Total Bilirubin 0.6 MG/DL (0.2-1.0) Aspartate Amino Transf (AST/SGOT) 38 U/L (15-37) Alanine Aminotransferase (ALT/SGPT) 19 U/L (12-78) Alkaline Phosphatase 145 U/L (46-116) Total Protein 5.5 G/DL (6.4-8.2) Albumin 1.3 G/DL (3.4-5.0) Globulin 4.2 g/dL Albumin/Globulin Ratio 0.3 (1.0-2.7) Test 04/06/20 09:51 04/07/20 03:30 Arterial Blood pH 7.494 (7.350-7.450) Arterial Blood Partial Pressure CO2 33.7 mmHg (35.0-45.0) Arterial Blood Partial Pressure O2 66.1 mmHg (75.0-100.0) Arterial Blood HCO3 25.3 mmol/L (22.0-26.0) Arterial Blood Oxygen Saturation 92.2 % (95-100) Arterial Blood Base Excess 2.1 (-2-2) Rojas Test N/a White Blood Count 8.1 K/UL (4.8-10.8) Red Blood Count 2.69 M/UL (4.20-5.40) Hemoglobin 8.1 G/DL (12.0-16.0) Hematocrit 24.8 % (37.0-47.0) Mean Corpuscular Volume 92 FL (80-99) Mean Corpuscular Hemoglobin 30.2 PG (27.0-31.0) Mean Corpuscular Hemoglobin Concent 32.8 G/DL (32.0-36.0) Red Cell Distribution Width 14.1 % (11.6-14.8) Platelet Count 253 K/UL (150-450) Mean Platelet Volume 5.4 FL (6.5-10.1) Neutrophils (%) (Auto) 64.7 % (45.0-75.0) Lymphocytes (%) (Auto) 26.2 % (20.0-45.0) Monocytes (%) (Auto) 5.9 % (1.0-10.0) Eosinophils (%) (Auto) 2.6 % (0.0-3.0) Basophils (%) (Auto) 0.5 % (0.0-2.0) Sodium Level 140 MMOL/L (136-145) Potassium Level 4.0 MMOL/L (3.5-5.1) Chloride Level 102 MMOL/L (98-107) Carbon Dioxide Level 26 MMOL/L (21-32) Anion Gap 12 mmol/L (5-15) Blood Urea Nitrogen 128 mg/dL (7-18) Creatinine 3.1 MG/DL (0.55-1.30) Estimat Glomerular Filtration Rate 16.1 mL/min (>60) Glucose Level 95 MG/DL (74-106) Calcium Level 8.2 MG/DL (8.5-10.1) Total Bilirubin 0.6 MG/DL (0.2-1.0) Aspartate Amino Transf (AST/SGOT) 38 U/L (15-37) Alanine Aminotransferase (ALT/SGPT) 21 U/L (12-78) Alkaline Phosphatase 164 U/L (46-116) Total Protein 5.9 G/DL (6.4-8.2) Albumin 1.4 G/DL (3.4-5.0) Globulin 4.5 g/dL Albumin/Globulin Ratio 0.3 (1.0-2.7) Height (Feet): 5 Height (Inches): 3.00 Weight (Pounds): 128 Objective Physical Exam: Vitals: reviewed General: NAD HEENT: nc, at Neck: supple ++trach/vent Chest: clear breath sounds bilaterally Cardiovascular: RRR, no s3, s4 Abdomen: soft, nontender, nd +gtube Extremities: no cce, normal range of motion Neuro: alert Evan Muhammad MD Apr 07, 2020 06:53
--- NOTE | 2020-04-07 06:57 | NUR ---
NURSE NOTES: per plastering supervisor Luisana, we have to transfer the pt to [facility]. made plastering supervisor aware regarding pt's high bp with diagnosis. will carry on. Addendum: 04/07/20 at 0658 by JOSEP VILLANUEVA RN wrong time
--- NOTE | 2020-04-07 07:10 | NUR ---
NURSE HAND-OFF REPORT: Important Events on Shift:[stable, but high BP] Patient Status: [stable] Diet: [feeding per order] Pending Orders: [transfer to higher acuity,] Pending Results/Labs:[] Pending MD notification:[Dr. Willams high BP] Latest Vital Signs: Temperature 98.5 , Pulse 64 , B/P 155 /77 , Respiratory Rate 14 , O2 SAT 98 , Mechanical Ventilator, O2 Flow Rate . Vital Sign Comment: [high BP] EKG Rhythm: Sinus Rhythm Rhythm change?: N Notified?: N -Dr Екатерина HATFIELD Response: Order Received& Read Back Latest Chav[place] Fall Score: 60 Fall Risk: High Risk Safety Measures: Call light Within Reach, Bed Alarm Zone 2, Side Rails Side Rails x3, Bed position Low and Locked. Fall Precautions: Yellow Socks Report given to [Annabelle RN,].
--- NOTE | 2020-04-07 07:31 | General Progress Note ---
Subjective ROS Limited/Unobtainable: No Allergies: Coded Allergies: No Known Allergies (Unverified , 10/10/17) Objective Last 24 Hour Vital Signs Date Time Temp Pulse Resp B/P (MAP) Pulse Ox O2 Delivery O2 Flow Rate FiO2 04/07/20 06:54 64 14 30 04/07/20 05:21 155/77 04/07/20 05:00 72 15 158/65 (96) 98 04/07/20 04:00 30 04/07/20 04:00 Mechanical Ventilator Mechanical Ventilator 04/07/20 04:00 98.5 70 14 157/137 (144) 96 04/07/20 03:42 66 04/07/20 03:36 160/77 04/07/20 03:31 66 14 30 04/07/20 03:00 67 17 153/85 (107) 98 04/07/20 02:00 68 22 148/65 (92) 98 04/07/20 01:00 65 15 146/51 (82) 98 04/07/20 00:20 68 04/07/20 00:00 Mechanical Ventilator Mechanical Ventilator 04/07/20 00:00 98.8 65 17 141/58 (85) 97 04/07/20 00:00 30 04/06/20 23:36 66 18 30 04/06/20 23:18 158/77 04/06/20 23:00 67 17 155/68 (97) 98 04/06/20 22:00 66 17 158/77 (104) 99 04/06/20 21:00 62 14 155/76 (102) 97 04/06/20 20:00 Mechanical Ventilator Mechanical Ventilator 04/06/20 20:00 98.0 65 18 153/85 (107) 98 04/06/20 20:00 30 04/06/20 19:48 64 04/06/20 19:41 61 16 30 04/06/20 19:10 162/69 04/06/20 19:00 60 14 162/69 (100) 97 04/06/20 18:00 58 14 152/65 (94) 97 04/06/20 17:34 155/71 04/06/20 17:00 56 14 155/71 (99) 96 04/06/20 16:00 Mechanical Ventilator Mechanical Ventilator 04/06/20 16:00 97.8 66 14 151/74 (99) 97 04/06/20 16:00 30 04/06/20 16:00 58 04/06/20 15:37 61 15 30 04/06/20 15:00 65 14 153/61 (91) 98 04/06/20 14:00 61 14 150/64 (92) 97 04/06/20 13:00 56 14 149/65 (93) 94 04/06/20 12:08 149/62 04/06/20 12:00 54 04/06/20 12:00 30 04/06/20 12:00 98.3 54 14 149/62 (91) 97 04/06/20 12:00 Mechanical Ventilator 04/06/20 11:24 54 14 30 04/06/20 11:00 52 14 144/61 (88) 97 04/06/20 10:00 53 14 149/61 (90) 97 04/06/20 09:00 61 14 149/61 (90) 98 04/06/20 08:00 98.0 57 13 140/60 (86) 99 04/06/20 08:00 Mechanical Ventilator 04/06/20 08:00 30 04/06/20 08:00 54 04/06/20 07:34 56 14 30 Intake and Output 04/06/20 04/07/20 19:00 07:00 Intake Total 885 ml 480 ml Output Total 0 ml 0 ml Balance 885 ml 480 ml Intake Free Water 80 ml 40 ml IV Total 60 ml Tube Feeding 475 ml 440 ml Other 270 ml Output Urine Total 0 ml 0 ml # Bowel Movements 1 Laboratory Tests 04/06/20 09:51: Arterial Blood pH 7.494H, Arterial Blood Partial Pressure CO2 33.7L, Arterial Blood Partial Pressure O2 66.1L, Arterial Blood HCO3 25.3, Arterial Blood Oxygen Saturation 92.2L, Arterial Blood Base Excess 2.1H, Rojas Test N/a 04/07/20 03:30: White Blood Count 8.1, Red Blood Count 2.69L, Hemoglobin 8.1L, Hematocrit 24.8L, Mean Corpuscular Volume 92, Mean Corpuscular Hemoglobin 30.2, Mean Corpuscular Hemoglobin Concent 32.8, Red Cell Distribution Width 14.1, Platelet Count 253, Mean Platelet Volume 5.4L, Neutrophils (%) (Auto) 64.7, Lymphocytes (%) (Auto) 26.2, Monocytes (%) (Auto) 5.9, Eosinophils (%) (Auto) 2.6, Basophils (%) (Auto) 0.5, Sodium Level 140, Potassium Level 4.0, Chloride Level 102, Carbon Dioxide Level 26, Anion Gap 12, Blood Urea Nitrogen 128H, Creatinine 3.1H, Estimat Glomerular Filtration Rate 16.1, Glucose Level 95, Calcium Level 8.2L, Total Bilirubin 0.6, Aspartate Amino Transf (AST/SGOT) 38H, Alanine Aminotransferase (ALT/SGPT) 21, Alkaline Phosphatase 164H, Total Protein 5.9L, Albumin 1.4L, Globulin 4.5, Albumin/Globulin Ratio 0.3L Height (Feet): 5 Height (Inches): 3.00 Weight (Pounds): 128 General Appearance: no apparent distress EENT: normal ENT inspection Neck: supple Cardiovascular: normal peripheral pulses Respiratory/Chest: decreased breath sounds Abdomen: hypoactive bowel sounds Extremities: non-tender Assessment/Plan Problem List: (1) Hx of CABG ICD Codes: Z95.1 - Presence of aortocoronary bypass graft SNOMED: 579578141, 741331033 (2) History of tracheostomy ICD Codes: Z98.890 - Other specified postprocedural states SNOMED: 663164929, 672124537 (3) PEG (percutaneous endoscopic gastrostomy) status ICD Codes: Z93.1 - Gastrostomy status SNOMED: 757383068, 011637163 (4) Renal failure ICD Codes: N19 - Unspecified kidney failure SNOMED: 08800559, 423913000 (5) Severe anemia ICD Codes: D64.9 - Anemia, unspecified SNOMED: 002070652 Assessment/Plan: s/p EGD gastric ulcer on ppi and carafate fu H&H GTF fu labs supportive care Inder Mccauley MD Apr 07, 2020 07:31
--- NOTE | 2020-04-07 07:48 | NUR ---
NURSE NOTES: spoke with [facility] Pharmacist regarding wrong count number Reglan in ICU, and per [facility] Pharmacist " it is okay, will fix it." noted.
--- NOTE | 2020-04-07 08:35 | Infectious Diseases Prog Note ---
Assessment/Plan 49yo F with: MDR Kleb pna bacteremia AMS Anemia to 1.9 on admission 03/02 Leukocytosis to 40, improving GPC bacteremia UTI Pneumonia c/b mod-large R pleural effusion and small L pleural effusion - compressive atelectasis Hypotension 03/02 BCx 1/2 +Staph epi, 12 +Staph haemolyticus (m/l skin colonizers) UA+, UCx >100k P.stuartii (S-angelo) & CRE P.mirablis (R-polyB/colistin, S- tobramycin, per [facility] is "intrinsically resistant to Avycaz/Zerbaxa" not clear why to me and they are unable to elaborate more) COVID rapid neg, PCR neg CXR: Tracheostomy again demonstrated. Interim placement of a right jugular tunneled dialysis catheter. There is infiltrate and volume loss in the left lung, particularly in the perihilar region, suprahilar region, and base. Consolidation at the lung base is similar. The perihilar and suprahilar region consolidation is new. The right lung pleural space are clear. C.dif neg 03/03 BCx NTD 03/06 BCx 2/2 +MDR Kleb pna (arnett-R, including R-polyB, colistin), 02/14 +E.faecium VRE (R-amp, S-linezolid) 03/08 BCx NTD 03/09 CT CAP: Very limited exam, as described, due to massive anasarca. This could limit visualization of the discrete fluid collection such as an abscess. Extensive thoracoabdominal aortic dissection, as described above. Current flap begins just distal to the left subclavian artery origin; per report, there is history of surgical repair so there may have been surgical repair of the ascending thoracic aorta. Bilateral pleural effusions, slightly smaller than on earlier exams. Extensive atelectasis as a result. Extensive pulmonary par enchymal disease as detailed above. This may reflect pneumonia or pulmonary edema or both. Evidence of pulmonary arterial hypertension, with dilatation of the pulmonary artery. Considerable ascites fluid. 03/11 Chest US: Small right, trace left pleural effusions, insufficient for safe thoracentesis AF Sepsis Leukocytosis Hypoxia on vent Pneumonia c/b L pleural effusion (recurrent, prior determined to be transudative) - s/p thora 01/21, 1050cc removed Volume overload, BNP >35,0000, likely 2/2 progressive CKD --> ESRD ?Pancreatitis, Lipase >2000 Acute anemia to 5s CONS bacteremia, ?contaminant Aflutter w/ RVR 01/13 BCx 2/2 +S. epi COVID PCR neg Flu neg CXR: Large left pleural effusion. Bilateral interstitial and airspace infiltrates versus edema MRSA nares neg 01/16 BCx NTD 01/17 BCx /2 +Staph auricularis (skin colonizer) 01/18 Resp cx +MDR CRE PsA (S-gent, I-colistin, R-polyB) (Intermediate to Zerbaxa, Resistant to Avycaz) 01/18 C.dif neg 01/18 CXR: Similar opacification of the left hemithorax likely representing combination of pleural effusion with atelectasis versus pneumonia/edema. Decreased but persistent hazy opacity throughout the right lung may represent edema versus infectious/inflammatory process. 01/20 BCx NTD 01/21 L thora 1050 cc removed, cx NTD 01/25 Wound cx from Gtube site +CRE Kleb pna (arnett-R) and MDR PsA (colonizers) 01/26 CT A/P: Limited exam, due to severe diffuse anasarca. Ascites. Bilateral pleural effusions. Basilar pulmonary atelectatic changes and consolidation. Gastrostomy. Atrophic left kidney with a nephroureteral stents again demonstrated. Possible retrococcygeal decubitus changes. Correlate with clinical findings, consider MRI if there is concern for sacral osteomyelitis. Right hip intertrochanteric fracture, also previously demonstrated. Left femoral dialysis catheter. Nonspecific right lobe liver lesion is unchanged, not well- demonstrated. ctasia bordering on aneurysmal dilatation and possible chronic dissection of the distal thoracic aorta, also previously described. JAVIER on CKD On previous admission Sep-Oct 2019 required HD for short period Going to start HD this admission again R/o COVID 01/14 COVID PCR neg 12/[address] [facility] per report H/o UTI 10/15 u/a wbc 30-40, nit neg, leuk +3; ucx ESBL P. mirablis, ESBL M. morganii //20 u/a wbc tnct, nit neg, leuk +3; ucx >100k MDR P. stuarti (S Ceftriaxone, Meropenem) 8/25 u/a wbc tnct, nit neg, leuk ; ucx >100k VRE 10/15/19 u/a wbc tnct; ucx >100k ESBL P. stuarti (S ertapenem, aztreonam) H/o transudative pleural effusion 11/28 Sp Thora (w: 169, PMN: 2%, L: 49% , LDH: 57, prot 2.5); cx Neg H/o PNA 10/15/19 Resp cx ESBL P. mirabilis, MDR P.a. (S only to Gent) 09/22 Resp cx + MDR PsA (S-gent; I-colistin; R-levofloxacin, Zosyn, angelo) 09/16/19 Sp cx ESBL P. mirablis H/o PPM site (pocket) infection and pocket abscess 2ry to S. epi-11/2018, sp >6weeks IV vancomycin 11/27 SP ABBIE: no evidence for vegetation on any of the valves 11/26/18 SP PPM removal: OR findings:The fibrous capsule enclosing the generator was then opened and there was a [id number] amount of yellowish fluid drainage. The generator was then removed.Atrial and ventricular leads were detached. The necrotic tissue of the pocket was then removed and the pocket was flushed with an antibiotic solution. Capsule, wound tissue and lead tip cx: Neg 2d echo: no vegetation seen US chest: 4.6 x 3.4 x 0.9 cm hypoechoic/anechoic area overlying left chest pacemaker power pack. This could represent either a discrete fluid collection or a focal area of very edematous tissue. Infected fluid pocket also possible. 11/18 Bcx 3/4 S. epi; 11/20 Bcx neg; 11/24 Bcx Neg; 11/27 Bcx Neg CAD s/p CABG GERD/gastritis Afib HTN Dysphagia sp GT Aortic dissection s/p repair 2017 S/p PPM Parkinson's Disease Schizophrenia Anxiety COPD Chronic resp failure s/p trach Hx of tracheal bleeding [place] resident ([facility]) VRE and MRSA colonized Plan: Monitor off abx 03/21 SP daptomycin #12, Avycaz #16 for VRE and MDR Kleb bacteremia 03/16 SP tobramycin IV #10 for resistant UTI 03/10/20 SP edson #4 empiric, vanco #9 01/31 SP angelo/inh tobra #10 for pna 01/23 SP vanco IV #10 given CONS/GPC bacteremia 01/16 SP Zosyn #2 01/14 SP dex 10mg in ED 12/10 SP IV Gentamycin #10 12/07 SP Meropenem #10 12/01 SP IV Vancomycin #5 11/28 Sp Cefepime #2 and IV Gentamycin x1 Monitor CBC/CMP Monitor temp curve, hemodynamics Monitor resp status D/w RN Thank you for this consult. [facility] will continue to follow. Subjective Allergies: Coded Allergies: No Known Allergies (Unverified , 10/10/17) Afebrile No Leukocytosis Satting well Transferred to tele Objective Last 24 Hour Vital Signs Date Time Temp Pulse Resp B/P (MAP) Pulse Ox O2 Delivery O2 Flow Rate FiO2 04/07/20 06:54 64 14 30 04/07/20 05:21 155/77 04/07/20 05:00 72 15 158/65 (96) 98 04/07/20 04:00 30 04/07/20 04:00 Mechanical Ventilator Mechanical Ventilator 04/07/20 04:00 98.5 70 14 157/137 (144) 96 04/07/20 03:42 66 04/07/20 03:36 160/77 04/07/20 03:31 66 14 30 04/07/20 03:00 67 17 153/85 (107) 98 04/07/20 02:00 68 22 148/65 (92) 98 04/07/20 01:00 65 15 146/51 (82) 98 04/07/20 00:20 68 04/07/20 00:00 Mechanical Ventilator Mechanical Ventilator 04/07/20 00:00 98.8 65 17 141/58 (85) 97 04/07/20 00:00 30 04/06/20 23:36 66 18 30 04/06/20 23:18 158/77 04/06/20 23:00 67 17 155/68 (97) 98 04/06/20 22:00 66 17 158/77 (104) 99 04/06/20 21:00 62 14 155/76 (102) 97 04/06/20 20:00 Mechanical Ventilator Mechanical Ventilator 04/06/20 20:00 98.0 65 18 153/85 (107) 98 04/06/20 20:00 30 04/06/20 19:48 64 04/06/20 19:41 61 16 30 04/06/20 19:10 162/69 04/06/20 19:00 60 14 162/69 (100) 97 04/06/20 18:00 58 14 152/65 (94) 97 04/06/20 17:34 155/71 04/06/20 17:00 56 14 155/71 (99) 96 04/06/20 16:00 Mechanical Ventilator Mechanical Ventilator 04/06/20 16:00 97.8 66 14 151/74 (99) 97 04/06/20 16:00 30 04/06/20 16:00 58 04/06/20 15:37 61 15 30 04/06/20 15:00 65 14 153/61 (91) 98 04/06/20 14:00 61 14 150/64 (92) 97 04/06/20 13:00 56 14 149/65 (93) 94 04/06/20 12:08 149/62 04/06/20 12:00 54 04/06/20 12:00 30 04/06/20 12:00 98.3 54 14 149/62 (91) 97 04/06/20 12:00 Mechanical Ventilator 04/06/20 11:24 54 14 30 04/06/20 11:00 52 14 144/61 (88) 97 04/06/20 10:00 53 14 149/61 (90) 97 04/06/20 09:00 61 14 149/61 (90) 98 Height (Feet): 5 Height (Inches): 3.00 Weight (Pounds): 128 Gen: NAD on Vent HEENT: NCAT, trach Pulm: BL chest rise on vent Abd: Soft, ND, +PEG Skin: No visible rashes Neuro: Awake, minimally interactive Lines: R chest Permacath dressing c/d/i Laboratory Tests Test 04/06/20 09:51 04/07/20 03:30 Arterial Blood pH 7.494 (7.350-7.450) Arterial Blood Partial Pressure CO2 33.7 mmHg (35.0-45.0) L Arterial Blood Partial Pressure O2 66.1 mmHg (75.0-100.0) L Arterial Blood HCO3 25.3 mmol/L (22.0-26.0) Arterial Blood Oxygen Saturation 92.2 % (95-100) L Arterial Blood Base Excess 2.1 (-2-2) H Rojas Test N/a White Blood Count 8.1 K/UL (4.8-10.8) Red Blood Count 2.69 M/UL (4.20-5.40) L Hemoglobin 8.1 G/DL (12.0-16.0) L Hematocrit 24.8 % (37.0-47.0) L Mean Corpuscular Volume 92 FL (80-99) Mean Corpuscular Hemoglobin 30.2 PG (27.0-31.0) Mean Corpuscular Hemoglobin Concent 32.8 G/DL (32.0-36.0) Red Cell Distribution Width 14.1 % (11.6-14.8) Platelet Count 253 K/UL (150-450) Mean Platelet Volume 5.4 FL (6.5-10.1) L Neutrophils (%) (Auto) 64.7 % (45.0-75.0) Lymphocytes (%) (Auto) 26.2 % (20.0-45.0) Monocytes (%) (Auto) 5.9 % (1.0-10.0) Eosinophils (%) (Auto) 2.6 % (0.0-3.0) Basophils (%) (Auto) 0.5 % (0.0-2.0) Sodium Level 140 MMOL/L (136-145) Potassium Level 4.0 MMOL/L (3.5-5.1) Chloride Level 102 MMOL/L (98-107) Carbon Dioxide Level 26 MMOL/L (21-32) Anion Gap 12 mmol/L (5-15) Blood Urea Nitrogen 128 mg/dL (7-18) H Creatinine 3.1 MG/DL (0.55-1.30) H Estimat Glomerular Filtration Rate 16.1 mL/min (>60) Glucose Level 95 MG/DL (74-106) Calcium Level 8.2 MG/DL (8.5-10.1) L Total Bilirubin 0.6 MG/DL (0.2-1.0) Aspartate Amino Transf (AST/SGOT) 38 U/L (15-37) H Alanine Aminotransferase (ALT/SGPT) 21 U/L (12-78) Alkaline Phosphatase 164 U/L (46-116) H Total Protein 5.9 G/DL (6.4-8.2) L Albumin 1.4 G/DL (3.4-5.0) L Globulin 4.5 g/dL Albumin/Globulin Ratio 0.3 (1.0-2.7) L Current Medications Medications (Trade) Dose Ordered Sig/Penny Route PRN Reason Start Time Stop Time Status Last Admin Dose Admin Aspirin (ASA) 81 mg DAILY GT 03/07/20 09:00 04/21/20 08:59 04/06/20 08:43 Chlorhexidine Gluconate (Ling-Hex 2%) 1 applic DAILY@1999 TOPIC 03/03/20 20:00 06/01/20 19:59 04/06/20 19:09 Dextrose (Dextrose 50%) 25 ml Q30M PRN IV Hypoglycemia 03/15/20 07:30 06/13/20 07:29 04/05/20 09:08 Dextrose (Dextrose 50%) 50 ml Q30M PRN IV Hypoglycemia 03/15/20 07:30 06/13/20 07:29 Famotidine (Pepcid) 20 mg BID GT 04/06/20 18:00 07/05/20 17:59 04/06/20 17:34 Hydralazine HCl (Apresoline) 25 mg Q6H PRN GT For High Blood Pressure 03/02/20 22:00 05/31/20 21:59 04/07/20 03:36 Hydralazine HCl (Apresoline) 50 mg Q6HR GT 04/07/20 00:00 07/06/20 00:00 04/07/20 05:21 Hydrocortisone (Anusol HC) 25 mg Q12HR RECTAL 03/23/20 21:00 06/21/20 08:59 04/06/20 21:07 Hydromorphone HCl (Dilaudid) 0.5 mg Q4H PRN IVP For Pain 04/02/20 20:30 04/09/20 20:29 04/07/20 03:37 Metoclopramide HCl (Reglan) 5 mg EVERY 6 HOURS NG 04/06/20 12:00 05/06/20 11:59 04/07/20 05:21 Sodium Hypochlorite (Dakin's Quarter Strength) 1 applic BEDTIME TOPIC 04/04/20 21:00 05/02/20 08:59 04/06/20 21:07 Sucralfate (Carafate) 1 gm EVERY 6 HOURS GT 03/17/20 18:00 06/09/20 08:59 04/07/20 05:21 Tramadol HCl (Ultram) 50 mg Q6H PRN ORAL Moderate Pain (Pain Scale 4-6) 03/26/20 19:30 04/09/20 19:29 04/07/20 01:32 Zinc Oxide (Zinc Oxide) 1 applic Q8HR TOPIC 03/25/20 22:00 06/22/20 17:59 04/07/20 05:21 Deni Gilbert MD Apr 07, 2020 08:35
--- NOTE | 2020-04-07 08:39 | NUR ---
RADIOLOGY DEPT., CHEST X-RAY DONE.-P.DYE
[2020-04-07] MEDS: Aspirin Baby 81mg GT SCH (08:57)
[2020-04-07] MEDS: Hydrocortisone 25mg supp RECTAL SCH ×2 (08:57→20:42)
--- NOTE | 2020-04-07 11:01 | Nephrology Progress Note ---
Assessment/Plan Problem List: (1) Renal failure (ARF), acute on chronic (2) Anemia (3) Hyponatremia (4) Respiratory failure Assessment (1) JAVIER (acute kidney injury) (2) Renal failure (ARF), acute on chronic (3) Feeding by G-tube (4) Tracheostomy in place (5) Electrolyte imbalance, hyponatremia (6) Anemia, severe (7) Respiratory failure, acute and chronic (8) history of elevated lipase, pancreatitis (9) Elevated troponin I (10) Sepsis Plan April 07: Patient remains full code. Heart rate improved. Medication list reviewed. Labs reviewed. Will order dialysis for tomorrow. Continue per consultants. April 06: Full code. Intubated via trach on ventilator. FiO2 30%. Blood sugar stable. D50 will be discontinued. Continue feeding. Dialysis as needed. April 05: Remains in ICU. Low heart rate persists. Will initiate low-dose hydralazine with blood pressure parameters. Last dialysis April 03. Blood sugar stable on 30 mL of D10 hourly. GT feeding started. Continue to monitor electrolytes renal parameters and arrange for dialysis as needed. April 04: Patient currently in ICU due to low heart rate. Blood pressure is stable. Dialyzed yesterday. Labs reviewed. Renal parameters and electrolytes stable. Medication list reviewed. Continue per cardiology with regard to bradycardia. April 03: Labs reviewed. We will order dialysis today. Continue per consultants. April 02: Labs reviewed. No need for dialysis today. Continue to monitor renal parameters. April 01: Labs reviewed. Renal parameters stable. No dialysis today. Continue per consultants. March 31: No labs drawn today. Renal parameters stable as of yesterday. Will check lab tomorrow. Dialysis as needed. March 30: Labs reviewed. Low phosphorus addressed. Continue per PMD and consultants. Dialysis as needed. March 29: Dialyzed yesterday. No CHEM panel drawn today. We will continue to monitor renal parameters. Continue per consultants. March 28: Due for dialysis today. Labs reviewed. Stable from renal standpoint of view. March 27: Due for dialysis tomorrow. Labs reviewed. Medication list reviewed. Continue per current management. March 26: Last dialyzed March 24. Labs reviewed. Low phosphorus replaced. Continue to monitor renal parameters. Dialysis as needed. March 25: Dialyzed yesterday. Labs reviewed. Low phosphorus replaced. Continue per current management. Hemoglobin higher. March 24: Labs reviewed. Due for dialysis today. Continue per current management. Hemoglobin lower. Transfusion per technology analyst. March 23: Labs reviewed. Dialyzed yesterday. Next dialysis tomorrow. Anemia management per technology analyst. March 22: Labs reviewed. Due for dialysis today. Discussed with RN. Agree with discontinuation of the Norman catheter. Hemoglobin lower. Transfusion per technology analyst. March 21: Labs reviewed. Will arrange for dialysis tomorrow. Continue per consultants. Will hold phosphorus binders at this time. March 20: Labs reviewed. Patient was dialyzed yesterday. Electrolyte abnormalities corrected. Continue per current management. March 19: Due for dialysis today. Abnormal labs noted. All will be corrected after dialysis. March 18: Labs reviewed. Will dialyze tomorrow. Patient being transfused today. Patient due for abdominal paracentesis. We will keep the Norman in. Continue to monitor renal parameters and dialyze as needed. March 17: No CHEM panel done today. CBC reviewed. Hemoglobin is lowering. Dialyzed yesterday. Will check lab tomorrow. Continue per consultants. March 16: Labs reviewed. Due for dialysis today. Hemoglobin 10.2 today. Continue to monitor renal parameters. March 15: Labs reviewed. Dialyzed March 13. Due for dialysis March 16. Hemoglobin lower. 1 unit of packed RBCs ordered. Per orders. March 14: No labs drawn today. Dialyzed yesterday. Full code. Will check lab tomorrow. Dialysis as needed. March 13: Labs reviewed. Due for dialysis today. Patient remains full code. Continue per current management. March 12: Labs reviewed. Dialyzed yesterday. Due for dialysis tomorrow. Discussed with RN. Patient full code. Continue per current management. March 11: Labs reviewed. Dialyzed this morning. Phosphorus binders dose adjusted. Continue per consultants. Continue to monitor renal parameters. CT: Extensive thoracoabdominal aortic dissection March 10: Labs reviewed. Will order dialysis tomorrow. Phosphorus binders added. Continue per consultants. March 09: No chemistry panel done today. Patient dialyzed yesterday. On dextrose 10% for hypoglycemia. We will check labs tomorrow. Dialysis as needed. March 08: Labs reviewed. Will order dialysis today. Blood sugar low. D10 50 cc an hour started. Continue as is. March 07: Labs reviewed. Dialyzed March 05 and March 06. Continue to monitor renal parameters and hemoglobin. Abnormal electrolytes addressed. IV fluids stopped. Per orders. March 06: Labs reviewed. Dialyzed yesterday. Will reorder dialysis for today. Continue to monitor renal parameters. Hemoglobin 8.4. Patient full code. March 05: Labs reviewed. Patient did not receive dialysis until this morning. Proceed with dialysis. Continue to monitor renal parameters and hemoglobin and hematocrit. March 04: Labs reviewed. Hemoglobin lower. Patient actively bleeding. Was not dialyzed yesterday. Due for GI endoscopy. Continue fluid challenge. Transfusion as needed. Dialysis today. March 03: Labs reviewed. Dialysis ordered. Blood pressure medication all discontinued due to hypotensive state. Albumin bolus given. Continue to monitor renal parameters. Medication list reviewed. Midodrin for low blood p ressure ordered Subjective ROS Limited/Unobtainable: Yes Objective Objective Last 24 Hour Vital Signs Date Time Temp Pulse Resp B/P (MAP) Pulse Ox O2 Delivery O2 Flow Rate FiO2 04/07/20 08:58 60 04/07/20 06:54 64 14 30 04/07/20 05:21 155/77 04/07/20 05:00 72 15 158/65 (96) 98 04/07/20 04:00 30 04/07/20 04:00 Mechanical Ventilator Mechanical Ventilator 04/07/20 04:00 98.5 70 14 157/137 (144) 96 04/07/20 03:42 66 04/07/20 03:36 160/77 04/07/20 03:31 66 14 30 04/07/20 03:00 67 17 153/85 (107) 98 04/07/20 02:00 68 22 148/65 (92) 98 04/07/20 01:00 65 15 146/51 (82) 98 04/07/20 00:20 68 04/07/20 00:00 Mechanical Ventilator Mechanical Ventilator 04/07/20 00:00 98.8 65 17 141/58 (85) 97 04/07/20 00:00 30 04/06/20 23:36 66 18 30 04/06/20 23:18 158/77 04/06/20 23:00 67 17 155/68 (97) 98 04/06/20 22:00 66 17 158/77 (104) 99 04/06/20 21:00 62 14 155/76 (102) 97 04/06/20 20:00 Mechanical Ventilator Mechanical Ventilator 04/06/20 20:00 98.0 65 18 153/85 (107) 98 04/06/20 20:00 30 04/06/20 19:48 64 04/06/20 19:41 61 16 30 04/06/20 19:10 162/69 04/06/20 19:00 60 14 162/69 (100) 97 04/06/20 18:00 58 14 152/65 (94) 97 04/06/20 17:34 155/71 04/06/20 17:00 56 14 155/71 (99) 96 04/06/20 16:00 Mechanical Ventilator Mechanical Ventilator 04/06/20 16:00 97.8 66 14 151/74 (99) 97 04/06/20 16:00 30 04/06/20 16:00 58 04/06/20 15:37 61 15 30 04/06/20 15:00 65 14 153/61 (91) 98 04/06/20 14:00 61 14 150/64 (92) 97 04/06/20 13:00 56 14 149/65 (93) 94 04/06/20 12:08 149/62 04/06/20 12:00 54 04/06/20 12:00 30 04/06/20 12:00 98.3 54 14 149/62 (91) 97 04/06/20 12:00 Mechanical Ventilator 04/06/20 11:24 54 14 30 04/06/20 11:00 52 14 144/61 (88) 97 Intake and Output 04/06/20 04/07/20 19:00 07:00 Intake Total 885 ml 480 ml Output Total 0 ml 0 ml Balance 885 ml 480 ml Intake Free Water 80 ml 40 ml IV Total 60 ml Tube Feeding 475 ml 440 ml Other 270 ml Output Urine Total 0 ml 0 ml # Bowel Movements 1 Current Medications Medications (Trade) Dose Ordered Sig/Penny Route PRN Reason Start Time Stop Time Status Last Admin Dose Admin Aspirin (ASA) 81 mg DAILY GT 03/07/20 09:00 04/21/20 08:59 04/07/20 08:57 Chlorhexidine Gluconate (Ling-Hex 2%) 1 applic DAILY@1999 TOPIC 03/03/20 20:00 06/01/20 19:59 04/06/20 19:09 Dextrose (Dextrose 50%) 25 ml Q30M PRN IV Hypoglycemia 03/15/20 07:30 06/13/20 07:29 04/05/20 09:08 Dextrose (Dextrose 50%) 50 ml Q30M PRN IV Hypoglycemia 03/15/20 07:30 06/13/20 07:29 Famotidine (Pepcid) 20 mg BID GT 04/06/20 18:00 07/05/20 17:59 04/07/20 08:57 Hydralazine HCl (Apresoline) 25 mg Q6H PRN GT For High Blood Pressure 03/02/20 22:00 05/31/20 21:59 04/07/20 03:36 Hydralazine HCl (Apresoline) 50 mg Q6HR GT 04/07/20 00:00 07/06/20 00:00 04/07/20 05:21 Hydrocortisone (Anusol HC) 25 mg Q12HR RECTAL 03/23/20 21:00 06/21/20 08:59 04/07/20 08:57 Hydromorphone HCl (Dilaudid) 0.5 mg Q4H PRN IVP For Pain 04/02/20 20:30 04/09/20 20:29 04/07/20 10:00 Metoclopramide HCl (Reglan) 5 mg EVERY 6 HOURS NG 04/06/20 12:00 05/06/20 11:59 04/07/20 05:21 Sodium Hypochlorite (Dakin's Quarter Strength) 1 applic BEDTIME TOPIC 04/04/20 21:00 05/02/20 08:59 04/06/20 21:07 Sucralfate (Carafate) 1 gm EVERY 6 HOURS GT 03/17/20 18:00 06/09/20 08:59 04/07/20 05:21 Tramadol HCl (Ultram) 50 mg Q6H PRN ORAL Moderate Pain (Pain Scale 4-6) 03/26/20 19:30 04/09/20 19:29 04/07/20 01:32 Zinc Oxide (Zinc Oxide) 1 applic Q8HR TOPIC 03/25/20 22:00 06/22/20 17:59 04/07/20 05:21 Laboratory Tests 04/07/20 03:30: White Blood Count 8.1, Red Blood Count 2.69L, Hemoglobin 8.1L, Hematocrit 24.8L, Mean Corpuscular Volume 92, Mean Corpuscular Hemoglobin 30.2, Mean Corpuscular Hemoglobin Concent 32.8, Red Cell Distribution Width 14.1, Platelet Count 253, Mean Platelet Volume 5.4L, Neutrophils (%) (Auto) 64.7, Lymphocytes (%) (Auto) 26.2, Monocytes (%) (Auto) 5.9, Eosinophils (%) (Auto) 2.6, Basophils (%) (Auto) 0.5, Sodium Level 140, Potassium Level 4.0, Chloride Level 102, Carbon Dioxide Level 26, Anion Gap 12, Blood Urea Nitrogen 128H, Creatinine 3.1H, Estimat Glomerular Filtration Rate 16.1, Glucose Level 95, Calcium Level 8.2L, Total Bilirubin 0.6, Aspartate Amino Transf (AST/SGOT) 38H, Alanine Aminotransferase (ALT/SGPT) 21, Alkaline Phosphatase 164H, Total Protein 5.9L, Albumin 1.4L, Globulin 4.5, Albumin/Globulin Ratio 0.3L 04/07/20 08:41: Arterial Blood pH 7.493H, Arterial Blood Partial Pressure CO2 34.1L, Arterial Blood Partial Pressure O2 59.7L, Arterial Blood HCO3 25.6, Arterial Blood Oxygen Saturation 90.0L, Arterial Blood Base Excess 2.3H, Rojas Test Positive Height (Feet): 5 Height (Inches): 3.00 Weight (Pounds): 128 General Appearance: no apparent distress EENT: other - Trach to vent Cardiovascular: normal rate Respiratory/Chest: decreased breath sounds Abdomen: distended Johnny Houston MD Apr 07, 2020 11:01
--- NOTE | 2020-04-07 12:01 | Pulmonology Progress Note ---
Subjective ROS Limited/Unobtainable: Yes Interval Events: Now in SDU for bradycardia HEENT: Repors: no symptoms Respiratory: Reports: no symptoms Cardiovascular: Reports: no symptoms Gastrointestinal/Abdominal: Reports: diarrhea Allergies: Coded Allergies: No Known Allergies (Unverified , 10/10/17) All Systems: reviewed and negative except above Objective Last 24 Hour Vital Signs Date Time Temp Pulse Resp B/P (MAP) Pulse Ox O2 Delivery O2 Flow Rate FiO2 04/07/20 08:58 60 04/07/20 08:00 98.1 64 14 144/70 (94) 96 04/07/20 06:54 64 14 30 04/07/20 05:21 155/77 04/07/20 05:00 72 15 158/65 (96) 98 04/07/20 04:00 30 04/07/20 04:00 Mechanical Ventilator Mechanical Ventilator 04/07/20 04:00 98.5 70 14 157/137 (144) 96 04/07/20 03:42 66 04/07/20 03:36 160/77 04/07/20 03:31 66 14 30 04/07/20 03:00 67 17 153/85 (107) 98 04/07/20 02:00 68 22 148/65 (92) 98 04/07/20 01:00 65 15 146/51 (82) 98 04/07/20 00:20 68 04/07/20 00:00 Mechanical Ventilator Mechanical Ventilator 04/07/20 00:00 98.8 65 17 141/58 (85) 97 04/07/20 00:00 30 04/06/20 23:36 66 18 30 04/06/20 23:18 158/77 04/06/20 23:00 67 17 155/68 (97) 98 04/06/20 22:00 66 17 158/77 (104) 99 04/06/20 21:00 62 14 155/76 (102) 97 04/06/20 20:00 Mechanical Ventilator Mechanical Ventilator 04/06/20 20:00 98.0 65 18 153/85 (107) 98 04/06/20 20:00 30 04/06/20 19:48 64 04/06/20 19:41 61 16 30 04/06/20 19:10 162/69 04/06/20 19:00 60 14 162/69 (100) 97 04/06/20 18:00 58 14 152/65 (94) 97 04/06/20 17:34 155/71 04/06/20 17:00 56 14 155/71 (99) 96 04/06/20 16:00 Mechanical Ventilator Mechanical Ventilator 04/06/20 16:00 97.8 66 14 151/74 (99) 97 04/06/20 16:00 30 04/06/20 16:00 58 04/06/20 15:37 61 15 30 04/06/20 15:00 65 14 153/61 (91) 98 04/06/20 14:00 61 14 150/64 (92) 97 04/06/20 13:00 56 14 149/65 (93) 94 04/06/20 12:08 149/62 04/06/20 12:00 54 04/06/20 12:00 30 04/06/20 12:00 98.3 54 14 149/62 (91) 97 04/06/20 12:00 Mechanical Ventilator Intake and Output 04/06/20 04/07/20 19:00 07:00 Intake Total 885 ml 480 ml Output Total 0 ml 0 ml Balance 885 ml 480 ml Intake Free Water 80 ml 40 ml IV Total 60 ml Tube Feeding 475 ml 440 ml Other 270 ml Output Urine Total 0 ml 0 ml # Bowel Movements 1 General Appearance: no acute distress HEENT: atraumatic, status post trach Respiratory: lungs clear Cardiovascular: normal rate, regular rhythm Extremities: other - edema bilateral Laboratory Tests 04/07/20 03:30: White Blood Count 8.1, Red Blood Count 2.69L, Hemoglobin 8.1L, Hematocrit 24.8L, Mean Corpuscular Volume 92, Mean Corpuscular Hemoglobin 30.2, Mean Corpuscular Hemoglobin Concent 32.8, Red Cell Distribution Width 14.1, Platelet Count 253, M candie Platelet Volume 5.4L, Neutrophils (%) (Auto) 64.7, Lymphocytes (%) (Auto) 26.2, Monocytes (%) (Auto) 5.9, Eosinophils (%) (Auto) 2.6, Basophils (%) (Auto) 0.5, Sodium Level 140, Potassium Level 4.0, Chloride Level 102, Carbon Dioxide Level 26, Anion Gap 12, Blood Urea Nitrogen 128H, Creatinine 3.1H, Estimat Glomerular Filtration Rate 16.1, Glucose Level 95, Calcium Level 8.2L, Total Bilirubin 0.6, Aspartate Amino Transf (AST/SGOT) 38H, Alanine Aminotransferase (ALT/SGPT) 21, Alkaline Phosphatase 164H, Total Protein 5.9L, Albumin 1.4L, Globulin 4.5, Albumin/Globulin Ratio 0.3L 04/07/20 08:41: Arterial Blood pH 7.493H, Arterial Blood Partial Pressure CO2 34.1L, Arterial Blood Partial Pressure O2 59.7L, Arterial Blood HCO3 25.6, Arterial Blood Oxygen Saturation 90.0L, Arterial Blood Base Excess 2.3H, Rojas Test Positive Current Medications Medications (Trade) Dose Ordered Sig/Penny Route PRN Reason Start Time Stop Time Status Last Admin Dose Admin Aspirin (ASA) 81 mg DAILY GT 03/07/20 09:00 04/21/20 08:59 04/07/20 08:57 Chlorhexidine Gluconate (Ling-Hex 2%) 1 applic DAILY@1999 TOPIC 03/03/20 20:00 06/01/20 19:59 04/06/20 19:09 Dextrose (Dextrose 50%) 25 ml Q30M PRN IV Hypoglycemia 03/15/20 07:30 06/13/20 07:29 04/05/20 09:08 Dextrose (Dextrose 50%) 50 ml Q30M PRN IV Hypoglycemia 03/15/20 07:30 06/13/20 07:29 Famotidine (Pepcid) 20 mg BID GT 04/06/20 18:00 07/05/20 17:59 04/07/20 08:57 Hydralazine HCl (Apresoline) 25 mg Q6H PRN GT For High Blood Pressure 03/02/20 22:00 05/31/20 21:59 04/07/20 03:36 Hydralazine HCl (Apresoline) 50 mg Q6HR GT 04/07/20 00:00 07/06/20 00:00 04/07/20 05:21 Hydrocortisone (Anusol HC) 25 mg Q12HR RECTAL 03/23/20 21:00 06/21/20 08:59 04/07/20 08:57 Hydromorphone HCl (Dilaudid) 0.5 mg Q4H PRN IVP For Pain 04/02/20 20:30 04/09/20 20:29 04/07/20 10:00 Metoclopramide HCl (Reglan) 5 mg EVERY 6 HOURS NG 04/06/20 12:00 05/06/20 11:59 04/07/20 05:21 Sodium Hypochlorite (Dakin's Quarter Strength) 1 applic BEDTIME TOPIC 04/04/20 21:00 05/02/20 08:59 04/06/20 21:07 Sucralfate (Carafate) 1 gm EVERY 6 HOURS GT 03/17/20 18:00 06/09/20 08:59 04/07/20 05:21 Tramadol HCl (Ultram) 50 mg Q6H PRN ORAL Moderate Pain (Pain Scale 4-6) 03/26/20 19:30 04/09/20 19:29 04/07/20 01:32 Zinc Oxide (Zinc Oxide) 1 applic Q8HR TOPIC 03/25/20 22:00 06/22/20 17:59 04/07/20 05:21 Assessment/Plan Assessment/Plan 1. Chronic respiratory failure. - CT chest/abd/pelv: improving pleural effusion 2. Mechanical ventilation. - Now on 30% FiO2 saturating well - suction secretions as needed 3. Chronic tracheostomy. 4. Chronic G-tube. 5. Anemia. - s/p transfusion - stool OB positive (03/02, 03/03, 03/22) - off anticoags 6. Renal failure. 7. Leukocytosis and sepsis. - WBC now wnl 8. Sepsis UTI 9. Gram positive cocci bacteremia - f/u BCx negative for growth 10. COVID-19 negative 11. Diarrhea - C. diff neg 12. Hypoglycemia - resolved 13. Bradycardia - no urgent indication for pacemaker per cardio 14. Gastric ulcer - on PPI -No active bleeding - GI following 15. Pleural effusion - small; insufficient volume for safe thoracentesis - on HD 16. thoracic aortic aneurysm - noted on CT imaging - pt needs emergent transfer out to [facility] for CT surgery evaluation, primary MD aware - Pt might not be a candidate for TAA repair 17. Ascites - s/p paracentesis (03/18), 2.3L out 18. DVT ppx - on SCD -Venous duplex ultrasound of legs negative for DVT (03/25) The care of this patient was discussed with my supervising physician Time spent for this encounter was approximately 31 minutes Cruz Wilson Apr 07, 2020 12:01
--- NOTE | 2020-04-07 14:20 | Diagnostic Imaging Report ---
Procedure: XRAY Chest 1v Reason for study: Shortness of breath. Comparison films: 04/06/2020. FINDINGS: Endotracheal tube and right central venous catheter remain in place. Bilateral alveolar densities are unchanged. Cardiomegaly with tortuous aorta and small effusions also unchanged. The bony thorax appear unremarkable. IMPRESSION: NO SIGNIFICANT CHANGE COMPARED TO PREVIOUS EXAM.
--- NOTE | 2020-04-07 15:34 | NUR ---
INSURANCE CLINICALS/REVIEW FAXED TO [facility] T: [phone] F: [phone]
--- NOTE | 2020-04-07 16:59 | NUR ---
LAB HEAD NOTES SPOKE WITH PJ FROM [facility] UNABLE TO ACCEPT THE PATIENT AT THIS TIME. INQUIRY FAXED TO OTHER CONTRACTED FACILITIES.
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
--- NOTE | 2020-04-07 19:30 | NUR ---
NURSE NOTES: Received pt in bed, alert but non verbal, on vent via trach not showing any signs of distress at current settings. Rt chest permacath intact. Nepro running at 40cc/hr via PEG. Right hand # 20 leaking. LFA #18 intact and patent. VSS and pt is SR on the monitor.
--- NOTE | 2020-04-07 19:34 | General Progress Note ---
Subjective Constitutional: Reports: no symptoms HEENT: Reports: no symptoms Cardiovascular: Reports: no symptoms Respiratory: Reports: no symptoms Gastrointestinal/Abdominal: Reports: no symptoms Genitourinary: Reports: no symptoms Neurologic/Psychiatric: Reports: depressed Endocrine: Reports: no symptoms Hematologic/Lymphatic: Reports: no symptoms Allergies: Coded Allergies: No Known Allergies (Unverified , 10/10/17) Objective Last 24 Hour Vital Signs Date Time Temp Pulse Resp B/P (MAP) Pulse Ox O2 Delivery O2 Flow Rate FiO2 04/07/20 17:55 143/62 04/07/20 16:07 98.1 04/07/20 16:07 98.1 04/07/20 16:00 65 04/07/20 16:00 30 04/07/20 16:00 Mechanical Ventilator 04/07/20 16:00 97.5 63 15 145/64 (91) 95 04/07/20 15:13 143/62 04/07/20 15:06 74 20 30 04/07/20 12:00 30 04/07/20 12:00 52 04/07/20 12:00 97.5 53 14 143/58 (86) 97 04/07/20 12:00 Mechanical Ventilator 04/07/20 11:17 71 19 30 04/07/20 08:58 60 04/07/20 08:00 30 04/07/20 08:00 98.1 64 14 144/70 (94) 96 04/07/20 08:00 Mechanical Ventilator 04/07/20 06:54 64 14 30 04/07/20 05:21 155/77 04/07/20 05:00 72 15 158/65 (96) 98 04/07/20 04:00 30 04/07/20 04:00 Mechanical Ventilator Mechanical Ventilator 04/07/20 04:00 98.5 70 14 157/137 (144) 96 04/07/20 03:42 66 04/07/20 03:36 160/77 04/07/20 03:31 66 14 30 04/07/20 03:00 67 17 153/85 (107) 98 04/07/20 02:00 68 22 148/65 (92) 98 04/07/20 01:00 65 15 146/51 (82) 98 04/07/20 00:20 68 04/07/20 00:00 Mechanical Ventilator Mechanical Ventilator 04/07/20 00:00 98.8 65 17 141/58 (85) 97 04/07/20 00:00 30 04/06/20 23:36 66 18 30 04/06/20 23:18 158/77 04/06/20 23:00 67 17 155/68 (97) 98 04/06/20 22:00 66 17 158/77 (104) 99 04/06/20 21:00 62 14 155/76 (102) 97 04/06/20 20:00 Mechanical Ventilator Mechanical Ventilator 04/06/20 20:00 98.0 65 18 153/85 (107) 98 04/06/20 20:00 30 04/06/20 19:48 64 04/06/20 19:41 61 16 30 Intake and Output 04/06/20 04/07/20 19:00 07:00 Intake Total 885 ml 480 ml Output Total 0 ml 0 ml Balance 885 ml 480 ml Intake Free Water 80 ml 40 ml IV Total 60 ml Tube Feeding 475 ml 440 ml Other 270 ml Output Urine Total 0 ml 0 ml # Bowel Movements 1 Laboratory Tests 04/07/20 03:30: White Blood Count 8.1, Red Blood Count 2.69L, Hemoglobin 8.1L, Hematocrit 24.8L, Mean Corpuscular Volume 92, Mean Corpuscular Hemoglobin 30.2, Mean Corpuscular Hemoglobin Concent 32.8, Red Cell Distribution Width 14.1, Platelet Count 253, Mean Platelet Volume 5.4L, Neutrophils (%) (Auto) 64.7, Lymphocytes (%) (Auto) 26.2, Monocytes (%) (Auto) 5.9, Eosinophils (%) (Auto) 2.6, Basophils (%) (Auto) 0.5, Sodium Level 140, Potassium Level 4.0, Chloride Level 102, Carbon Dioxide Level 26, Anion Gap 12, Blood Urea Nitrogen 128H, Creatinine 3.1H, Estimat Glomerular Filtration Rate 16.1, Glucose Level 95, Calcium Level 8.2L, Total Bilirubin 0.6, Aspartate Amino Transf (AST/SGOT) 38H, Alanine Aminotransferase (ALT/SGPT) 21, Alkaline Phosphatase 164H, Total Protein 5.9L, Albumin 1.4L, Globulin 4.5, Albumin/Globulin Ratio 0.3L 04/07/20 08:41: Arterial Blood pH 7.493H, Arterial Blood Partial Pressure CO2 34.1L, Arterial Blood Partial Pressure O2 59.7L, Arterial Blood HCO3 25.6, Arterial Blood Oxygen Saturation 90.0L, Arterial Blood Base Excess 2.3H, Rojas Test Positive 04/07/20 14:00: POC Whole Blood Glucose 94 04/07/20 19:12: POC Whole Blood Glucose 98 Height (Feet): 5 Height (Inches): 3.00 Weight (Pounds): 128 General Appearance: WD/WN, alert, mild distress EENT: TMs normal Neck: supple Cardiovascular: normal rate, regular rhythm, no gallop/murmur, no JVD Respiratory/Chest: lungs clear, normal breath sounds, no respiratory distress, no accessory muscle use Abdomen: normal bowel sounds, non tender, soft, no organomegaly, no mass Extremities: non-tender Neurologic: alert, other - Normal attention span to communicate with lips language Assessment/Plan Status Narrative Patient is awake alert afebrile with eye contact normal attention span but appear depressed communicate Language yesterday she was transferred to the ICU because of impression of enlargement of her aortic aneurysm different than the previous one the indication for surgical intervention in aortic dissecting aneurysm now director case management failed to transfer the patient to the surgical unit patient has not been dialyzed now for more than a week which revealed the possibility to transfer the patient back to the extended care facility benefit that she get in this hospital in survival to consider loss in quality of life therefore patient condition condition remains stable as today should be done to transfer the patient back to [facility] laboratory tests will be done in a.m. as a Lucas Paul MD, MD Apr 07, 2020 19:34
[2020-04-07] MEDS: Dakin's 0.125% Soln (Quarter Strength) 16oz TOPIC SCH (20:42)
[2020-04-07] MEDS: Dyna-Hex 2% Top Sol 2oz TOPIC SCH (20:42)
[2020-04-08] VITALS: BP 153/68
--- NOTE | 2020-04-08 | NUR ---
Pt remains stable with stable VS. Pt repositioned for comfort. Accuckeck is 106. Pt remains SR on the monitor.
[2020-04-08] MEDS: Sucralfate 1gm tab GT SCH ×4 (00:10→18:00)
[2020-04-08] MEDS: Metoclopramide 10mg/10ml Liq NG SCH ×4 (00:10→18:00)
[2020-04-08] MEDS: HydrALAZINE 50mg tab GT SCH ×4 (00:11→18:00)
--- NOTE | 2020-04-08 01:40 | Cardiology Progress Note ---
Subjective DATE OF SERVICE: Apr 07, 2020 Heart rates have stabilized again. BP parameterg stable CT scan revealed extensive thoracoabd aortic dissection- Chase Type B Dialysis per renal Pt is s/p paracentesis (50cc) Objective Last 24 Hour Vital Signs Date Time Temp Pulse Resp B/P (MAP) Pulse Ox O2 Delivery O2 Flow Rate FiO2 04/08/20 01:29 71 14 30 04/08/20 00:11 153/68 04/08/20 00:00 Mechanical Ventilator 04/08/20 00:00 97.5 70 15 153/68 (96) 100 04/08/20 00:00 81 04/08/20 00:00 30 04/07/20 22:57 65 14 30 04/07/20 21:33 66 16 30 04/07/20 20:00 30 04/07/20 20:00 68 04/07/20 20:00 Mechanical Ventilator 04/07/20 20:00 97.7 61 14 127/73 (91) 96 04/07/20 19:30 63 14 30 04/07/20 17:55 143/62 04/07/20 16:07 98.1 04/07/20 16:07 98.1 04/07/20 16:00 65 04/07/20 16:00 30 04/07/20 16:00 Mechanical Ventilator 04/07/20 16:00 97.5 63 15 145/64 (91) 95 04/07/20 15:13 143/62 04/07/20 15:06 74 20 30 04/07/20 12:00 30 04/07/20 12:00 52 04/07/20 12:00 97.5 53 14 143/58 (86) 97 04/07/20 12:00 Mechanical Ventilator 04/07/20 11:17 71 19 30 04/07/20 08:58 60 04/07/20 08:00 30 04/07/20 08:00 98.1 64 14 144/70 (94) 96 04/07/20 08:00 Mechanical Ventilator 04/07/20 06:54 64 14 30 04/07/20 05:21 155/77 04/07/20 05:00 72 15 158/65 (96) 98 04/07/20 04:00 30 04/07/20 04:00 Mechanical Ventilator Mechanical Ventilator 2/23/21 04:00 98.5 70 14 157/137 (144) 96 04/07/20 03:42 66 04/07/20 03:36 160/77 04/07/20 03:31 66 14 30 04/07/20 03:00 67 17 153/85 (107) 98 04/07/20 02:00 68 22 148/65 (92) 98 HEENT: Thin Trach secretions RHYTHM: NSR, SB LUNGS: bilateral rhonchi - few, trach site clean CARDIAC: normal rate, regular rhythm, normal S1 and S2 ABDOMEN: normal bowel sounds, non tender, soft, G-Tube intact EXTREMITIES: normal range of motion, non-tender, normal inspection Laboratory Tests Test 04/07/20 03:30 04/07/20 08:41 04/07/20 14:00 04/07/20 19:12 White Blood Count 8.1 K/UL (4.8-10.8) Red Blood Count 2.69 M/UL (4.20-5.40) L Hemoglobin 8.1 G/DL (12.0-16.0) L Hematocrit 24.8 % (37.0-47.0) L Mean Corpuscular Volume 92 FL (80-99) Mean Corpuscular Hemoglobin 30.2 PG (27.0-31.0) Mean Corpuscular Hemoglobin Concent 32.8 G/DL (32.0-36.0) Red Cell Distribution Width 14.1 % (11.6-14.8) Platelet Count 253 K/UL (150-450) Mean Platelet Volume 5.4 FL (6.5-10.1) L Neutrophils (%) (Auto) 64.7 % (45.0-75.0) Lymphocytes (%) (Auto) 26.2 % (20.0-45.0) Monocytes (%) (Auto) 5.9 % (1.0-10.0) Eosinophils (%) (Auto) 2.6 % (0.0-3.0) Basophils (%) (Auto) 0.5 % (0.0-2.0) Sodium Level 140 MMOL/L (136-145) Potassium Level 4.0 MMOL/L (3.5-5.1) Chloride Level 102 MMOL/L (98-107) Carbon Dioxide Level 26 MMOL/L (21-32) Anion Gap 12 mmol/L (5-15) Blood Urea Nitrogen 128 mg/dL (7-18) H Creatinine 3.1 MG/DL (0.55-1.30) H Estimat Glomerular Filtration Rate 16.1 mL/min (>60) Glucose Level 95 MG/DL (74-106) Calcium Level 8.2 MG/DL (8.5-10.1) L Total Bilirubin 0.6 MG/DL (0.2-1.0) Aspartate Amino Transf (AST/SGOT) 38 U/L (15-37) H Alanine Aminotransferase (ALT/SGPT) 21 U/L (12-78) Alkaline Phosphatase 164 U/L (46-116) H Total Protein 5.9 G/DL (6.4-8.2) L Albumin 1.4 G/DL (3.4-5.0) L Globulin 4.5 g/dL Albumin/Globulin Ratio 0.3 (1.0-2.7) L Arterial Blood pH 7.493 (7.350-7.450) Arterial Blood Partial Pressure CO2 34.1 mmHg (35.0-45.0) L Arterial Blood Partial Pressure O2 59.7 mmHg (75.0-100.0) L Arterial Blood HCO3 25.6 mmol/L (22.0-26.0) Arterial Blood Oxygen Saturation 90.0 % (95-100) L Arterial Blood Base Excess 2.3 (-2-2) H Rojas Test Positive POC Whole Blood Glucose 94 MG/DL (74-106) 98 MG/DL (74-106) Test 04/07/20 23:31 POC Whole Blood Glucose 106 MG/DL (74-106) Assessment/Plan Assessment/Plan Aortic dissections - Chase B Sepsis with recovered shock Sinus node disease with bradycardia Hx pacemaker explant Ischemic cardiomyopathy - hx CABG? Paroxysmal Atrial Fib Respiratory failure with trach Hx thoracic aortic aneurysm repair ESRD Anemia HypoPO4 Hypertension/HHD with rising BP range Remains off beta blockers; would not resume despite benefit in setting of AAA with dissection, as she has repeatedly developed significant bradycardia. DC metoclopramide, which can aggravate bradycardia. No need for emergent pacemaker at present. 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 Non-surgical mngmt Deni Willams MD Apr 08, 2020 01:40
[2020-04-08 04:00] VITALS: BP 158/82
--- NOTE | 2020-04-08 04:00 | NUR ---
NURSE NOTES: Pt remains stable with stable VS. AM care given. Dressing on sacral wound changed. Purewick put in place to prevent dressing from getting soaked.
--- NOTE | 2020-04-08 05:00 | NUR ---
NURSE NOTES: Jenn Hernandes in to dialyze pt.
[2020-04-08] MEDS: Zinc Oxide Oint 2oz TOPIC SCH ×3 (05:54→22:01)
--- NOTE | 2020-04-08 06:17 | Hematology/Onc Progress Note ---
Assessment/Plan Assessment/Plan # Leukocytosis, now with likely bacteremia, as per ID care --> Cxr: : Large left abiola consolidation/effusion --> wbc 30-->40-->27->30->29-->35->32-->28-->21->10.2-->6.6 --> ABX angelo/vanc-->tobra/edson/vanc-->dapto/ceftazadine->off abx --> smear reviewed --> ID recs are noted # Anemia of chronic disease due to underlying chronic medical issues, multifactorial --> Anemia workup has been reviewed, cw acd --> No evidence of hemolysis is noted, peripheral smear has been reviewed. --> Hgb goal >7. Transfuse prn. --> Epogen required in prior --> Medications have been reviewed --> low threshold for gi evaluation in case has occult + --> hgb 1.9-->5-->7.1-->8.8-->8.1->7.5-> 8.2-->6. 8-->9.2-->8.4->7.7-->7.1-->8.8->8.7-->8.2 --> 1 unit prbc1/17, 2 units 01/15, 03/02, 03/18, 03/24 --> gi eval as needed # Elevated tumor markers, cea and ca 19.9 --> reviewed prior 01/27/20 cat scan a/p --> no masses noted, hold off further extensive w/u # Thrombocytopenia likely reactive v medication induced --> plt 200-->129->91-->86->100->78-->86-->87-->125->135 --> transfuse as needed --> r/o dic, has been ruled out --> anticoag as needed # Coagulopathy with inr 1.5 --> consider vit k/ffp as needed preprocedure --> labs noted # Aortic dissection as seen on Ct ==> when stable, consider transfer hloc # JAVIER initially >2 --> on ivfs --> per renal is on HD # Elevated d-dimer, likely infection related --> venous duplex prior neg --> in prior neg # Dysphagia s/p peg --> as per gi # Thoracic aortic dissection --> s/p repair early 2017 # Chronic Resp failure -> s/p trach/vent # Psychiatric history on ativan/haldol # OR resident # Dvt ppx --> scds The timing of this note does not necessarily reflect the time of the patient was seen. Greatly appreciate consultation. Subjective HEENT: Denies: no symptoms, eye pain, blurred vision, tearing, double vision, ear pain, ear discharge, nose pain, nose congestion, throat pain, throat swelling, mouth pain, mouth swelling, other Respiratory: Denies: no symptoms, cough, shortness of breath, SOB with excertion, SOB at rest, sputum, wheezing, other Genitourinary: Denies: no symptoms, burning, discharge, frequency, flank pain, hematuria, incontinence, pain, urgency, other Neurologic/Psychiatric: Denies: no symptoms, anxiety, depressed, emotional problems, headache, numbness, paresthesia, pre-existing deficit, seizure, tingling, tremors, weakness, other Endocrine: Denies: no symptoms, excessive sweating, flushing, intolerance to cold, intolerance to heat, increased hunger, increased thirst, increased urine, unexplained weight gain, unexplained weight loss, other Hematologic/Lymphatic: Denies: no symptoms, anemia, easy bleeding, easy bruising, adenopathy, other Allergies: Coded Allergies: No Known Allergies (Unverified , 10/10/17) Subjective 03/04 for 1 unit transfusion this am as hgb remains low, wbc better 03/05 egd was done did show large nonbleeding gastric ulcer, high tumor markers 03/06 nv, with davis overnight, bp remains stable, with occult + stool, dw Rn 03/09 nv, remains stable, on vanc/tobra/edson, meds reviewed, no bleeding 03/10 nv, on vent, no bleeding, receiving abx, no night sweats 03/11 nv, dw surgeon and pcp, with aortic dissection to transfer [facility] when stable 03/12 nv, labs reviewed, wbc 21, hgb 7.5, otherwise is comfortable 03/13 nv, labs noted, no bleeding, wbc 13, hgb improved, meds reviewed 03/15 nv, meds reviewed, labs noted, no bleeding, on vent 03/16 nv/tv, peg, meds noted, hgb remains stable, improved to 10 2/ s/p egd, with gastric ulceration noted, hgb stable 03/18 labs noted, hgb 6.8, to get 1 unit prbc, meds reviewed 03/19 hgb 9.2, plt 78, no hemoptysis, is comfortable 03/20 labs reviewed, meds noted, no bleeding, roman rn 03/22 wound treatment, vent, with gtube, labs reviewed, roman rn 03/23 labs reviewed, meds noted, no bleeding, with gt 03/24 large bm overnight that was bloody, hgb 7.1, roman rn 03/25 labs pending this am, comfortable, nsr, meds noted 03/26 nv, vent, with gt, labs reviewed, hgb 8.8 03/27 nv, vent, labs reviewed, with gt, hgb stable 03/29 nv, vent, labs pending, meds reviewed, no bleeding 03/30 nv, t/v, with gt feeds, labs reviewed, meds noted 03/31 nv, t/v, oral secretions were suctioned, meds reviewed 04/01 nv, t/v, labs are reviewed, meds noted, hgb 7.4 04/02 gt leaking, facial grimacing, labs noted, no bleeding, roman rn 04/03 nv, labs noted, no bleeding, roman rn, h/h stable 04/04 nv, labs reviewed, gtube replacement as per Dr. Mccauley 04/05 nv, labs reviewed, meds noted no bleeding, roman rn 04/06 nv, labs, meds noted, no bleeding, on vt, no new changes 04/07 nv, meds reviewed, labs noted, no bleeding, bp was high on, transferred to icu 04/08 nv, labs noted, no bleeding, evaluated at the bedside Objective Objective Current Medications Medications (Trade) Dose Ordered Sig/Penny Route PRN Reason Start Time Stop Time Status Last Admin Dose Admin Aspirin (ASA) 81 mg DAILY GT 03/07/20 09:00 04/21/20 08:59 04/07/20 08:57 Chlorhexidine Gluconate (Ling-Hex 2%) 1 applic DAILY@1999 TOPIC 03/03/20 20:00 06/01/20 19:59 04/07/20 20:42 Dextrose (Dextrose 50%) 25 ml Q30M PRN IV Hypoglycemia 03/15/20 07:30 06/13/20 07:29 04/05/20 09:08 Dextrose (Dextrose 50%) 50 ml Q30M PRN IV Hypoglycemia 03/15/20 07:30 06/13/20 07:29 Famotidine (Pepcid) 20 mg BID GT 04/06/20 18:00 07/05/20 17:59 04/07/20 17:55 Hydralazine HCl (Apresoline) 25 mg Q6H PRN GT For High Blood Pressure 03/02/20 22:00 05/31/20 21:59 04/07/20 03:36 Hydralazine HCl (Apresoline) 50 mg Q6HR GT 04/07/20 00:00 07/06/20 00:00 04/08/20 00:11 Hydrocortisone (Anusol HC) 25 mg Q12HR RECTAL 03/23/20 21:00 06/21/20 08:59 04/07/20 20:42 Hydromorphone HCl (Dilaudid) 0.5 mg Q4H PRN IVP For Pain 04/02/20 20:30 04/09/20 20:29 04/07/20 15:37 Metoclopramide HCl (Reglan) 5 mg EVERY 6 HOURS NG 04/06/20 12:00 05/06/20 11:59 04/08/20 00:10 Sodium Hypochlorite (Dakin's Quarter Strength) 1 applic BEDTIME TOPIC 04/04/20 21:00 05/02/20 08:59 04/07/20 20:42 Sucralfate (Carafate) 1 gm EVERY 6 HOURS GT 03/17/20 18:00 06/09/20 08:59 04/08/20 00:10 Tramadol HCl (Ultram) 50 mg Q6H PRN ORAL Moderate Pain (Pain Scale 4-6) 03/26/20 19:30 04/09/20 19:29 04/07/20 15:38 Zinc Oxide (Zinc Oxide) 1 applic Q8HR TOPIC 03/25/20 22:00 06/22/20 17:59 04/07/20 22:25 Last 24 Hour Vital Signs Date Time Temp Pulse Resp B/P (MAP) Pulse Ox O2 Delivery O2 Flow Rate FiO2 04/08/20 05:53 158/82 04/08/20 05:30 60 16 30 04/08/20 04:00 30 04/08/20 04:00 73 04/08/20 04:00 Mechanical Ventilator 04/08/20 04:00 97.7 68 15 158/82 (107) 98 04/08/20 03:31 74 15 30 04/08/20 01:29 71 14 30 04/08/20 00:11 153/68 04/08/20 00:00 Mechanical Ventilator 04/08/20 00:00 97.5 70 15 153/68 (96) 100 04/08/20 00:00 81 04/08/20 00:00 30 04/07/20 22:57 65 14 30 04/07/20 21:33 66 16 30 04/07/20 20:00 30 04/07/20 20:00 68 04/07/20 20:00 Mechanical Ventilator 04/07/20 20:00 97.7 61 14 127/73 (91) 96 04/07/20 19:30 63 14 30 04/07/20 17:55 143/62 04/07/20 16:07 98.1 04/07/20 16:07 98.1 04/07/20 16:00 65 04/07/20 16:00 30 04/07/20 16:00 Mechanical Ventilator 04/07/20 16:00 97.5 63 15 145/64 (91) 95 04/07/20 15:13 143/62 04/07/20 15:06 74 20 30 04/07/20 12:00 30 04/07/20 12:00 52 04/07/20 12:00 97.5 53 14 143/58 (86) 97 04/07/20 12:00 Mechanical Ventilator 04/07/20 11:17 71 19 30 04/07/20 08:58 60 04/07/20 08:00 30 04/07/20 08:00 98.1 64 14 144/70 (94) 96 04/07/20 08:00 Mechanical Ventilator 04/07/20 06:54 64 14 30 04/07/20 05:21 155/77 04/07/20 05:00 72 15 158/65 (96) 98 04/07/20 04:00 30 04/07/20 04:00 Mechanical Ventilator Mechanical Ventilator 04/07/20 04:00 98.5 70 14 157/137 (144) 96 04/07/20 03:42 66 04/07/20 03:36 160/77 04/07/20 03:31 66 14 30 04/07/20 03:00 67 17 153/85 (107) 98 04/07/20 02:00 68 22 148/65 (92) 98 04/07/20 01:00 65 15 146/51 (82) 98 04/07/20 00:20 68 04/07/20 00:00 Mechanical Ventilator Mechanical Ventilator 04/07/20 00:00 98.8 65 17 141/58 (85) 97 04/07/20 00:00 30 04/06/20 23:36 66 18 30 04/06/20 23:18 158/77 04/06/20 23:00 67 17 155/68 (97) 98 04/06/20 22:00 66 17 158/77 (104) 99 04/06/20 21:00 62 14 155/76 (102) 97 04/06/20 20:00 Mechanical Ventilator Mechanical Ventilator 04/06/20 20:00 98.0 65 18 153/85 (107) 98 04/06/20 20:00 30 04/06/20 19:48 64 04/06/20 19:41 61 16 30 04/06/20 19:10 162/69 04/06/20 19:00 60 14 162/69 (100) 97 04/06/20 18:00 58 14 152/65 (94) 97 04/06/20 17:34 155/71 04/06/20 17:00 56 14 155/71 (99) 96 04/06/20 16:00 Mechanical Ventilator Mechanical Ventilator 04/06/20 16:00 97.8 66 14 151/74 (99) 97 04/06/20 16:00 30 04/06/20 16:00 58 04/06/20 15:37 61 15 30 04/06/20 15:00 65 14 153/61 (91) 98 04/06/20 14:00 61 14 150/64 (92) 97 04/06/20 13:00 56 14 149/65 (93) 94 04/06/20 12:08 149/62 04/06/20 12:00 54 04/06/20 12:00 30 04/06/20 12:00 98.3 54 14 149/62 (91) 97 04/06/20 12:00 Mechanical Ventilator 04/06/20 11:24 54 14 30 04/06/20 11:00 52 14 144/61 (88) 97 04/06/20 10:00 53 14 149/61 (90) 97 04/06/20 09:00 61 14 149/61 (90) 98 04/06/20 08:00 98.0 57 13 140/60 (86) 99 04/06/20 08:00 Mechanical Ventilator 04/06/20 08:00 30 04/06/20 08:00 54 04/06/20 07:34 56 14 30 04/06/20 07:00 56 14 147/65 (92) 100 Intake and Output 04/07/20 04/08/20 19:00 07:00 Intake Total 770 ml 560 ml Output Total 0 ml Balance 770 ml 560 ml Intake Free Water 250 ml 160 ml Tube Feeding 520 ml 400 ml Output Urine Total 0 ml Labs Test 04/05/20 09:06 04/05/20 11:10 04/06/20 05:49 04/06/20 09:51 Arterial Blood pH 7.554 (7.350-7.450) 7.494 (7.350-7.450) Arterial Blood Partial Pressure CO2 27.7 mmHg (35.0-45.0) 33.7 mmHg (35.0-45.0) Arterial Blood Partial Pressure O2 89.7 mmHg (75.0-100.0) 66.1 mmHg (75.0-100.0) Arterial Blood HCO3 23.9 mmol/L (22.0-26.0) 25.3 mmol/L (22.0-26.0) Arterial Blood Oxygen Saturation 95.9 % (95-100) 92.2 % (95-100) Arterial Blood Base Excess 1.8 (-2-2) 2.1 (-2-2) Rojas Test Positive N/a White Blood Count 5.5 K/UL (4.8-10.8) 7.9 K/UL (4.8-10.8) Red Blood Count 2.64 M/UL (4.20-5.40) 2.51 M/UL (4.20-5.40) Hemoglobin 7.8 G/DL (12.0-16.0) 7.6 G/DL (12.0-16.0) Hematocrit 23.8 % (37.0-47.0) 22.7 % (37.0-47.0) Mean Corpuscular Volume 90 FL (80-99) 90 FL (80-99) Mean Corpuscular Hemoglobin 29.6 PG (27.0-31.0) 30.4 PG (27.0-31.0) Mean Corpuscular Hemoglobin Concent 32.9 G/DL (32.0-36.0) 33.6 G/DL (32.0-36.0) Red Cell Distribution Width 13.7 % (11.6-14.8) 14.0 % (11.6-14.8) Platelet Count 234 K/UL (150-450) 254 K/UL (150-450) Mean Platelet Volume 6.1 FL (6.5-10.1) 5.8 FL (6.5-10.1) Neutrophils (%) (Auto) % (45.0-75.0) % (45.0-75.0) Lymphocytes (%) (Auto) % (20.0-45.0) % (20.0-45.0) Monocytes (%) (Auto) % (1.0-10.0) % (1.0-10.0) Eosinophils (%) (Auto) % (0.0-3.0) % (0.0-3.0) Basophils (%) (Auto) % (0.0-2.0) % (0.0-2.0) Differential Total Cells Counted 100 Neutrophils % (Manual) 64 % (45-75) Lymphocytes % (Manual) 26 % (20-45) Monocytes % (Manual) 9 % (1-10) Eosinophils % (Manual) 1 % (0-3) Basophils % (Manual) 0 % (0-2) Band Neutrophils 0 % (0-8) Platelet Estimate Adequate Platelet Morphology Normal Hypochromasia 1+ Sodium Level 141 MMOL/L (136-145) 138 MMOL/L (136-145) Potassium Level 4.1 MMOL/L (3.5-5.1) 4.4 MMOL/L (3.5-5.1) Chloride Level 104 MMOL/L (98-107) 102 MMOL/L (98-107) Carbon Dioxide Level 25 MMOL/L (21-32) 27 MMOL/L (21-32) Anion Gap 12 mmol/L (5-15) 9 mmol/L (5-15) Blood Urea Nitrogen 114 mg/dL (7-18) 125 mg/dL (7-18) Creatinine 2.8 MG/DL (0.55-1.30) 3.0 MG/DL (0.55-1.30) Estimat Glomerular Filtration Rate 18.1 mL/min (>60) 16.7 mL/min (>60) Glucose Level 95 MG/DL (74-106) 124 MG/DL (74-106) Calcium Level 8.1 MG/DL (8.5-10.1) 8.0 MG/DL (8.5-10.1) Phosphorus Level 5.8 MG/DL (2.5-4.9) Magnesium Level 2.5 MG/DL (1.8-2.4) Total Bilirubin 0.6 MG/DL (0.2-1.0) Aspartate Amino Transf (AST/SGOT) 38 U/L (15-37) Alanine Aminotransferase (ALT/SGPT) 19 U/L (12-78) Alkaline Phosphatase 145 U/L (46-116) Total Protein 5.5 G/DL (6.4-8.2) Albumin 1.3 G/DL (3.4-5.0) Globulin 4.2 g/dL Albumin/Globulin Ratio 0.3 (1.0-2.7) Test 04/07/20 03:30 04/07/20 08:41 04/07/20 14:00 04/07/20 19:12 White Blood Count 8.1 K/UL (4.8-10.8) Red Blood Count 2.69 M/UL (4.20-5.40) Hemoglobin 8.1 G/DL (12.0-16.0) Hematocrit 24.8 % (37.0-47.0) Mean Corpuscular Volume 92 FL (80-99) Mean Corpuscular Hemoglobin 30.2 PG (27.0-31.0) Mean Corpuscular Hemoglobin Concent 32.8 G/DL (32.0-36.0) Red Cell Distribution Width 14.1 % (11.6-14.8) Platelet Count 253 K/UL (150-450) Mean Platelet Volume 5.4 FL (6.5-10.1) Neutrophils (%) (Auto) 64.7 % (45.0-75.0) Lymphocytes (%) (Auto) 26.2 % (20.0-45.0) Monocytes (%) (Auto) 5.9 % (1.0-10.0) Eosinophils (%) (Auto) 2.6 % (0.0-3.0) Basophils (%) (Auto) 0.5 % (0.0-2.0) Sodium Level 140 MMOL/L (136-145) Potassium Level 4.0 MMOL/L (3.5-5.1) Chloride Level 102 MMOL/L (98-107) Carbon Dioxide Level 26 MMOL/L (21-32) Anion Gap 12 mmol/L (5-15) Blood Urea Nitrogen 128 mg/dL (7-18) Creatinine 3.1 MG/DL (0.55-1.30) Estimat Glomerular Filtration Rate 16.1 mL/min (>60) Glucose Level 95 MG/DL (74-106) Calcium Level 8.2 MG/DL (8.5-10.1) Total Bilirubin 0.6 MG/DL (0.2-1.0) Aspartate Amino Transf (AST/SGOT) 38 U/L (15-37) Alanine Aminotransferase (ALT/SGPT) 21 U/L (12-78) Alkaline Phosphatase 164 U/L (46-116) Total Protein 5.9 G/DL (6.4-8.2) Albumin 1.4 G/DL (3.4-5.0) Globulin 4.5 g/dL Albumin/Globulin Ratio 0.3 (1.0-2.7) Arterial Blood pH 7.493 (7.350-7.450) Arterial Blood Partial Pressure CO2 34.1 mmHg (35.0-45.0) Arterial Blood Partial Pressure O2 59.7 mmHg (75.0-100.0) Arterial Blood HCO3 25.6 mmol/L (22.0-26.0) Arterial Blood Oxygen Saturation 90.0 % (95-100) Arterial Blood Base Excess 2.3 (-2-2) Rojas Test Positive POC Whole Blood Glucose 94 MG/DL (74-106) 98 MG/DL (74-106) Test 04/07/20 23:31 04/08/20 05:04 POC Whole Blood Glucose 106 MG/DL (74-106) 95 MG/DL (74-106) Height (Feet): 5 Height (Inches): 3.00 Weight (Pounds): 128 Objective Physical Exam: Vitals: reviewed General: NAD HEENT: nc, at Neck: supple ++trach/vent Chest: clear breath sounds bilaterally Cardiovascular: RRR, no s3, s4 Abdomen: soft, nontender, nd +gtube Extremities: no cce, normal range of motion Neuro: alert Evan Muhammad MD Apr 08, 2020 06:17
--- NOTE | 2020-04-08 07:24 | NUR ---
NURSE HAND-OFF REPORT: Important Events on Shift: Patient Status: Diet: Pending Orders: Pending Results/Labs: Pending MD notification: Latest Vital Signs: Temperature 97.7 , Pulse 60 , B/P 158 /82 , Respiratory Rate 16 , O2 SAT 98 , Mechanical Ventilator, O2 Flow Rate . Vital Sign Comment: EKG Rhythm: Sinus Rhythm Rhythm change?: N Notified?: N -Dr Екатерина HATFIELD Response: Order Received& Read Back Latest [place] Fall Score: 50 Fall Risk: High Risk Safety Measures: Call light Within Reach, Bed Alarm Zone 1, Side Rails Side Rails x3, Bed position Low and Locked. Fall Precautions: Patient Fall Education Report given to ERASMO Griffin.
[2020-04-08 08:00] VITALS: BP 147/73
--- NOTE | 2020-04-08 08:47 | General Progress Note ---
Subjective ROS Limited/Unobtainable: No Allergies: Coded Allergies: No Known Allergies (Unverified , 10/10/17) Objective Last 24 Hour Vital Signs Date Time Temp Pulse Resp B/P (MAP) Pulse Ox O2 Delivery O2 Flow Rate FiO2 04/08/20 06:55 64 16 30 04/08/20 05:53 158/82 04/08/20 05:30 60 16 30 04/08/20 04:00 30 04/08/20 04:00 73 04/08/20 04:00 Mechanical Ventilator 04/08/20 04:00 97.7 68 15 158/82 (107) 98 04/08/20 03:31 74 15 30 04/08/20 01:29 71 14 30 04/08/20 00:11 153/68 04/08/20 00:00 Mechanical Ventilator 04/08/20 00:00 97.5 70 15 153/68 (96) 100 04/08/20 00:00 81 04/08/20 00:00 30 04/07/20 22:57 65 14 30 04/07/20 21:33 66 16 30 04/07/20 20:00 30 04/07/20 20:00 68 04/07/20 20:00 Mechanical Ventilator 04/07/20 20:00 97.7 61 14 127/73 (91) 96 04/07/20 19:30 63 14 30 04/07/20 17:55 143/62 04/07/20 16:07 98.1 04/07/20 16:07 98.1 04/07/20 16:00 65 04/07/20 16:00 30 04/07/20 16:00 Mechanical Ventilator 04/07/20 16:00 97.5 63 15 145/64 (91) 95 04/07/20 15:13 143/62 04/07/20 15:06 74 20 30 04/07/20 12:00 30 04/07/20 12:00 52 04/07/20 12:00 97.5 53 14 143/58 (86) 97 04/07/20 12:00 Mechanical Ventilator 04/07/20 11:17 71 19 30 04/07/20 08:58 60 Intake and Output 04/07/20 04/08/20 19:00 07:00 Intake Total 770 ml 600 ml Output Total 0 ml Balance 770 ml 600 ml Intake Free Water 250 ml 160 ml Tube Feeding 520 ml 440 ml Output Urine Total 0 ml Laboratory Tests 04/07/20 14:00: POC Whole Blood Glucose 94 04/07/20 19:12: POC Whole Blood Glucose 98 04/07/20 23:31: POC Whole Blood Glucose 106 04/08/20 05:04: POC Whole Blood Glucose 95 Height (Feet): 5 Height (Inches): 3.00 Weight (Pounds): 128 General Appearance: no apparent distress EENT: normal ENT inspection Neck: supple Cardiovascular: normal rate Respiratory/Chest: decreased breath sounds Abdomen: normal bowel sounds, non tender, soft Extremities: non-tender Assessment/Plan Problem List: (1) Hx of CABG ICD Codes: Z95.1 - Presence of aortocoronary bypass graft SNOMED: 152595416, [id number] (2) History of tracheostomy ICD Codes: Z98.890 - Other specified postprocedural states SNOMED: 459046088, 370417220 (3) PEG (percutaneous endoscopic gastrostomy) status ICD Codes: Z93.1 - Gastrostomy status SNOMED: 177750804, 389034063 (4) Renal failure ICD Codes: N19 - Unspecified kidney failure SNOMED: 59256708, 674584875 (5) Severe anemia ICD Codes: D64.9 - Anemia, unspecified SNOMED: 973066563 Assessment/Plan: s/p EGD gastric ulcer on ppi and carafate fu H&H GTF fu labs supportive care Inder Mccauley MD Apr 08, 2020 08:47
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
[2020-04-08] MEDS: Hydrocortisone 25mg supp RECTAL SCH ×2 (09:22→21:00)
[2020-04-08] MEDS: Aspirin Baby 81mg GT SCH (09:22)
--- NOTE | 2020-04-08 09:42 | Pulmonology Progress Note ---
Subjective ROS Limited/Unobtainable: No Interval Events: none major reported per nursing HEENT: Repors: no symptoms Respiratory: Reports: no symptoms Cardiovascular: Reports: no symptoms Gastrointestinal/Abdominal: Reports: diarrhea Allergies: Coded Allergies: No Known Allergies (Unverified , 10/10/17) All Systems: reviewed and negative except above Objective Last 24 Hour Vital Signs Date Time Temp Pulse Resp B/P (MAP) Pulse Ox O2 Delivery O2 Flow Rate FiO2 04/08/20 08:00 73 04/08/20 08:00 97.7 75 15 147/73 (97) 98 04/08/20 08:00 Mechanical Ventilator 04/08/20 08:00 30 04/08/20 06:55 64 16 30 04/08/20 05:53 158/82 04/08/20 05:30 60 16 30 04/08/20 04:00 30 04/08/20 04:00 73 04/08/20 04:00 Mechanical Ventilator 04/08/20 04:00 97.7 68 15 158/82 (107) 98 04/08/20 03:31 74 15 30 04/08/20 01:29 71 14 30 04/08/20 00:11 153/68 04/08/20 00:00 Mechanical Ventilator 04/08/20 00:00 97.5 70 15 153/68 (96) 100 04/08/20 00:00 81 04/08/20 00:00 30 04/07/20 22:57 65 14 30 04/07/20 21:33 66 16 30 04/07/20 20:00 30 04/07/20 20:00 68 04/07/20 20:00 Mechanical Ventilator 04/07/20 20:00 97.7 61 14 127/73 (91) 96 04/07/20 19:30 63 14 30 04/07/20 17:55 143/62 04/07/20 16:07 98.1 04/07/20 16:07 98.1 04/07/20 16:00 65 04/07/20 16:00 30 04/07/20 16:00 Mechanical Ventilator 04/07/20 16:00 97.5 63 15 145/64 (91) 95 04/07/20 15:13 143/62 04/07/20 15:06 74 20 30 04/07/20 12:00 30 04/07/20 12:00 52 04/07/20 12:00 97.5 53 14 143/58 (86) 97 04/07/20 12:00 Mechanical Ventilator 04/07/20 11:17 71 19 30 Intake and Output 04/07/20 04/08/20 19:00 07:00 Intake Total 770 ml 600 ml Output Total 0 ml Balance 770 ml 600 ml Intake Free Water 250 ml 160 ml Tube Feeding 520 ml 440 ml Output Urine Total 0 ml General Appearance: no acute distress HEENT: atraumatic, status post trach Respiratory: lungs clear Cardiovascular: normal rate, regular rhythm Extremities: other - edema bilateral Laboratory Tests 04/07/20 14:00: POC Whole Blood Glucose 94 04/07/20 19:12: POC Whole Blood Glucose 98 04/07/20 23:31: POC Whole Blood Glucose 106 04/08/20 05:04: POC Whole Blood Glucose 95 Current Medications Medications (Trade) Dose Ordered Sig/Penny Route PRN Reason Start Time Stop Time Status Last Admin Dose Admin Aspirin (ASA) 81 mg DAILY GT 03/07/20 09:00 04/21/20 08:59 04/08/20 09:22 Chlorhexidine Gluconate (Ling-Hex 2%) 1 applic DAILY@1999 TOPIC 03/03/20 20:00 06/01/20 19:59 04/07/20 20:42 Dextrose (Dextrose 50%) 25 ml Q30M PRN IV Hypoglycemia 03/15/20 07:30 06/13/20 07:29 04/05/20 09:08 Dextrose (Dextrose 50%) 50 ml Q30M PRN IV Hypoglycemia 03/15/20 07:30 06/13/20 07:29 Famotidine (Pepcid) 20 mg BID GT 04/06/20 18:00 07/05/20 17:59 04/08/20 09:22 Hydralazine HCl (Apresoline) 25 mg Q6H PRN GT For High Blood Pressure 03/02/20 22:00 05/31/20 21:59 04/07/20 03:36 Hydralazine HCl (Apresoline) 50 mg Q6HR GT 04/07/20 00:00 07/06/20 00:00 04/08/20 00:11 Hydrocortisone (Anusol HC) 25 mg Q12HR RECTAL 03/23/20 21:00 06/21/20 08:59 04/08/20 09:22 Hydromorphone HCl (Dilaudid) 0.5 mg Q4H PRN IVP For Pain 04/02/20 20:30 04/09/20 20:29 04/07/20 15:37 Metoclopramide HCl (Reglan) 5 mg EVERY 6 HOURS NG 04/06/20 12:00 05/06/20 11:59 04/08/20 00:10 Sodium Hypochlorite (Dakin's Quarter Strength) 1 applic BEDTIME TOPIC 04/04/20 21:00 05/02/20 08:59 04/07/20 20:42 Sucralfate (Carafate) 1 gm EVERY 6 HOURS GT 03/17/20 18:00 06/09/20 08:59 04/08/20 00:10 Tramadol HCl (Ultram) 50 mg Q6H PRN ORAL Moderate Pain (Pain Scale 4-6) 03/26/20 19:30 04/09/20 19:29 04/07/20 15:38 Zinc Oxide (Zinc Oxide) 1 applic Q8HR TOPIC 03/25/20 22:00 06/22/20 17:59 04/07/20 22:25 Assessment/Plan Assessment/Plan 1. Chronic respiratory failure. - CT chest/abd/pelv: improving pleural effusion 2. Mechanical ventilation. - Now on 30% FiO2 saturating well - suction secretions as needed 3. Chronic tracheostomy. 4. Chronic G-tube. 5. Anemia. - s/p transfusion - stool OB positive (03/02, 03/03, 03/22) - off anticoags 6. Renal failure. 7. Leukocytosis and sepsis. - WBC now wnl 8. Sepsis UTI 9. Gram positive cocci bacteremia - f/u BCx negative for growth 10. COVID-19 negative 11. Diarrhea - C. diff neg 12. Hypoglycemia - resolved 13. Bradycardia - no urgent indication for pacemaker per cardio 14. Gastric ulcer - on PPI -No active bleeding - GI following 15. Pleural effusion - small; insufficient volume for safe thoracentesis - on HD 16. thoracic aortic aneurysm - noted on CT imaging - pt needs emergent transfer out to [facility] for CT surgery evaluation, primary MD aware - Pt might not be a candidate for TAA repair 17. Ascites - s/p paracentesis (03/18), 2.3L out 18. DVT ppx - on SCD -Venous duplex ultrasound of legs negative for DVT (03/25) The care of this patient was discussed with my supervising physician Time spent for this encounter was approximately 31 minutes Cruz Wilson Apr 08, 2020 09:42
--- NOTE | 2020-04-08 11:47 | NUR ---
NURSE NOTES:WOUND CARE FOLLOW-UP NOTES: Pt presented on admission with Tracheostomy, GT with peristomal Dermatitis, and multiple Pressure injuries. Peristomal dermatitis is resolving.Affected area of peristomal dermatitis has decreased in size but remains erythematous and excoriated. Small amt sanguineous exudate mixed with formula noted from Gt stoma. Silver Nitrate x1 application applied to stoma per Dr. Saavedra. Zinc Oxide paste applied peristomal skin and covered with Optifoam drsg. Full thickness Sacral Pressure Injury (L)10.3cm x (W)11.5cm x (D)1.1cm, Undermining clockwise 9-4 by 2.8cm @30clock. Base of wound is beefy red with small amt Biofilm,small area of Bone exposure. Mild odor noted. Small amt serous exudate noted. Periwound ,skin is dry, brown without erythema or induration. Perineum and perianal areas are erythematous. Non-Blanchable erythema without induration L ischial tuberosity.(L)9.5cm x (W)7cm. No other areas of skin concerns noted. Wound Tx are effective and continued as ordered. All wound prevention protocols continued as care-planned.
[2020-04-08 12:00] VITALS: BP 153/73
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
[2020-04-08 16:00] VITALS: BP 166/66
[2020-04-08] MEDS: HYDROmorphone 1mg/ml Carpuject IVP PRN ×2 (16:00→22:30)
--- NOTE | 2020-04-08 16:18 | NUR ---
CASE MANAGEMENT:REVIEW 04/08/20 SI: SEPSIS. BACTEREMIA. AORTIC DISSECTION ANEMIA VS: T 97.7 HR 75 RR 15 B/P 153/73 SATS 98% ON MECH VENT FIO2 30 LABS: HGB 8.1 HCT 24.8 IS: COREG GT Q8HRS IV DILAUDID Q4HRS PRN ULTRAM GT Q6HRS PRN CARAFATE GT Q6HRS ASA GT QD IV PEPCID Q12 IV REGLAN Q8HRS :SDU DCP: FROM [facility] PLAN: HD TODAY MONITOR H/H
--- NOTE | 2020-04-08 16:59 | Nephrology Progress Note ---
Assessment/Plan Problem List: (1) Renal failure (ARF), acute on chronic (2) Anemia (3) Hyponatremia (4) Respiratory failure Assessment (1) JAVIER (acute kidney injury) (2) Renal failure (ARF), acute on chronic (3) Feeding by G-tube (4) Tracheostomy in place (5) Electrolyte imbalance, hyponatremia (6) Anemia, severe (7) Respiratory failure, acute and chronic (8) history of elevated lipase, pancreatitis (9) Elevated troponin I (10) Sepsis Plan April 08: Dialysis today. Blood pressure medication adjusted. Check lab tomorrow. Continue per consultants. April 07: Patient remains full code. Heart rate improved. Medication list reviewed. Labs reviewed. Will order dialysis for tomorrow. Continue per consultants. April 06: Full code. Intubated via trach on ventilator. FiO2 30%. Blood sugar stable. D50 will be discontinued. Continue feeding. Dialysis as needed. April 05: Remains in ICU. Low heart rate persists. Will initiate low-dose hydralazine with blood pressure parameters. Last dialysis April 03. Blood sugar stable on 30 mL of D10 hourly. GT feeding started. Continue to monitor electrolytes renal parameters and arrange for dialysis as needed. April 04: Patient currently in ICU due to low heart rate. Blood pressure is stable. Dialyzed yesterday. Labs reviewed. Renal parameters and electrolytes stable. Medication list reviewed. Continue per cardiology with regard to bradycardia. April 03: Labs reviewed. We will order dialysis today. Continue per consultants. April 02: Labs reviewed. No need for dialysis today. Continue to monitor renal parameters. April 01: Labs reviewed. Renal parameters stable. No dialysis today. Continue per consultants. March 31: No labs drawn today. Renal parameters stable as of yesterday. Will check lab tomorrow. Dialysis as needed. March 30: Labs reviewed. Low phosphorus addressed. Continue per PMD and consultants. Dialysis as needed. March 29: Dialyzed yesterday. No CHEM panel drawn today. We will continue to monitor renal parameters. Continue per consultants. March 28: Due for dialysis today. Labs reviewed. Stable from renal standpoint of view. March 27: Due for dialysis tomorrow. Labs reviewed. Medication list reviewed. Continue per current management. March 26: Last dialyzed March 24. Labs reviewed. Low phosphorus replaced. Continue to monitor renal parameters. Dialysis as needed. March 25: Dialyzed yesterday. Labs reviewed. Low phosphorus replaced. Continue per current management. Hemoglobin higher. March 24: Labs reviewed. Due for dialysis today. Continue per current management. Hemoglobin lower. Transfusion per welder manufacture. March 23: Labs reviewed. Dialyzed yesterday. Next dialysis tomorrow. Anemia management per welder manufacture. March 22: Labs reviewed. Due for dialysis today. Discussed with RN. Agree with discontinuation of the Norman catheter. Hemoglobin lower. Transfusion per welder manufacture. March 21: Labs reviewed. Will arrange for dialysis tomorrow. Continue per consultants. Will hold phosphorus binders at this time. March 20: Labs reviewed. Patient was dialyzed yesterday. Electrolyte abnormalities corrected. Continue per current management. March 19: Due for dialysis today. Abnormal labs noted. All will be corrected after dialysis. March 18: Labs reviewed. Will dialyze tomorrow. Patient being transfused today. Patient due for abdominal paracentesis. We will keep the Norman in. Co ntinue to monitor renal parameters and dialyze as needed. March 17: No CHEM panel done today. CBC reviewed. Hemoglobin is lowering. Dialyzed yesterday. Will check lab tomorrow. Continue per consultants. March 16: Labs reviewed. Due for dialysis today. Hemoglobin 10.2 today. Continue to monitor renal parameters. March 15: Labs reviewed. Dialyzed March 13. Due for dialysis March 16. Hemoglobin lower. 1 unit of packed RBCs ordered. Per orders. March 14: No labs drawn today. Dialyzed yesterday. Full code. Will check lab tomorrow. Dialysis as needed. March 13: Labs reviewed. Due for dialysis today. Patient remains full code. Continue per current management. March 12: Labs reviewed. Dialyzed yesterday. Due for dialysis tomorrow. Discussed with RN. Patient full code. Continue per current management. March 11: Labs reviewed. Dialyzed this morning. Phosphorus binders dose adjusted. Continue per consultants. Continue to monitor renal parameters. CT: Extensive thoracoabdominal aortic dissection March 10: Labs reviewed. Will order dialysis tomorrow. Phosphorus binders added. Continue per consultants. March 09: No chemistry panel done today. Patient dialyzed yesterday. On de xtrose 10% for hypoglycemia. We will check labs tomorrow. Dialysis as needed. March 08: Labs reviewed. Will order dialysis today. Blood sugar low. D10 50 cc an hour started. Continue as is. March 07: Labs reviewed. Dialyzed March 05 and March 06. Continue to monitor renal parameters and hemoglobin. Abnormal electrolytes addressed. IV fluids stopped. Per orders. March 06: Labs reviewed. Dialyzed yesterday. Will reorder dialysis for today. Continue to monitor renal parameters. Hemoglobin 8.4. Patient full code. March 05: Labs reviewed. Patient did not receive dialysis until this morning. Proceed with dialysis. Continue to monitor renal parameters and hemoglobin and hematocrit. March 04: Labs reviewed. Hemoglobin lower. Patient actively bleeding. Was not dialyzed yesterday. Due for GI endoscopy. Continue fluid challenge. Transfusion as needed. Dialysis today. March 03: Labs reviewed. Dialysis ordered. Blood pressure medication all discontinued due to hypotensive state. Albumin bolus given. Continue to monitor renal parameters. Medication list reviewed. Midodrin for low blood pressure ordered Subjective ROS Limited/Unobtainable: Yes Objective Objective Last 24 Hour Vital Signs Date Time Temp Pulse Resp B/P (MAP) Pulse Ox O2 Delivery O2 Flow Rate FiO2 04/08/20 16:00 30 04/08/20 16:00 Mechanical Ventilator 04/08/20 16:00 81 04/08/20 16:00 97.5 75 15 166/66 (99) 98 04/08/20 15:05 66 18 30 04/08/20 12:00 97.7 75 15 153/73 (99) 98 04/08/20 12:00 Mechanical Ventilator 04/08/20 12:00 153/73 04/08/20 12:00 30 04/08/20 12:00 75 04/08/20 10:35 67 16 30 04/08/20 08:00 73 04/08/20 08:00 97.7 75 15 147/73 (97) 98 04/08/20 08:00 Mechanical Ventilator 04/08/20 08:00 30 04/08/20 06:55 64 16 30 04/08/20 05:53 158/82 04/08/20 05:30 60 16 30 04/08/20 04:00 30 04/08/20 04:00 73 04/08/20 04:00 Mechanical Ventilator 04/08/20 04:00 97.7 68 15 158/82 (107) 98 04/08/20 03:31 74 15 30 04/08/20 01:29 71 14 30 04/08/20 00:11 153/68 04/08/20 00:00 Mechanical Ventilator 04/08/20 00:00 97.5 70 15 153/68 (96) 100 04/08/20 00:00 81 04/08/20 00:00 30 04/07/20 22:57 65 14 30 04/07/20 21:33 66 16 30 04/07/20 20:00 30 04/07/20 20:00 68 04/07/20 20:00 Mechanical Ventilator 04/07/20 20:00 97.7 61 14 127/73 (91) 96 04/07/20 19:30 63 14 30 04/07/20 17:55 143/62 Intake and Output 04/07/20 04/08/20 19:00 07:00 Intake Total 770 ml 600 ml Output Total 0 ml Balance 770 ml 600 ml Intake Free Water 250 ml 160 ml Tube Feeding 520 ml 440 ml Output Urine Total 0 ml Current Medications Medications (Trade) Dose Ordered Sig/Penny Route PRN Reason Start Time Stop Time Status Last Admin Dose Admin Aspirin (ASA) 81 mg DAILY GT 03/07/20 09:00 04/21/20 08:59 04/08/20 09:22 Chlorhexidine Gluconate (Ling-Hex 2%) 1 applic DAILY@2000 TOPIC 03/03/20 20:00 06/01/20 19:59 04/07/20 20:42 Dextrose (Dextrose 50%) 25 ml Q30M PRN IV Hypoglycemia 03/15/20 07:30 06/13/20 07:29 04/05/20 09:08 Dextrose (Dextrose 50%) 50 ml Q30M PRN IV Hypoglycemia 03/15/20 07:30 06/13/20 07:29 Famotidine (Pepcid) 20 mg BID GT 04/06/20 18:00 07/05/20 17:59 04/08/20 09:22 Hydralazine HCl (Apresoline) 25 mg Q6H PRN GT For High Blood Pressure 03/02/20 22:00 05/31/20 21:59 04/07/20 03:36 Hydralazine HCl (Apresoline) 50 mg Q6HR GT 04/07/20 00:00 07/06/20 00:00 04/08/20 12:00 Hydrocortisone (Anusol HC) 25 mg Q12HR RECTAL 03/23/20 21:00 06/21/20 08:59 04/08/20 09:22 Hydromorphone HCl (Dilaudid) 0.5 mg Q4H PRN IVP For Pain 04/02/20 20:30 04/09/20 20:29 04/07/20 15:37 Metoclopramide HCl (Reglan) 5 mg EVERY 6 HOURS NG 04/06/20 12:00 05/06/20 11:59 04/08/20 12:00 Sodium Hypochlorite (Dakin's Quarter Strength) 1 applic BEDTIME TOPIC 04/04/20 21:00 05/02/20 08:59 04/07/20 20:42 Sucralfate (Carafate) 1 gm EVERY 6 HOURS GT 03/17/20 18:00 06/09/20 08:59 04/08/20 12:00 Tramadol HCl (Ultram) 50 mg Q6H PRN ORAL Moderate Pain (Pain Scale 4-6) 03/26/20 19:30 04/09/20 19:29 04/07/20 15:38 Zinc Oxide (Zinc Oxide) 1 applic Q8HR TOPIC 03/25/20 22:00 06/22/20 17:59 04/08/20 12:59 Laboratory Tests 04/07/20 19:12: POC Whole Blood Glucose 98 04/07/20 23:31: POC Whole Blood Glucose 106 04/08/20 05:04: POC Whole Blood Glucose 95 04/08/20 12:40: POC Whole Blood Glucose 113H Height (Feet): 5 Height (Inches): 3.00 Weight (Pounds): 128 General Appearance: no apparent distress EENT: other - Trach to vent Cardiovascular: normal rate Respiratory/Chest: decreased breath sounds Abdomen: distended Johnny Houston MD Apr 08, 2020 16:59
[2020-04-08] MEDS ORDERED: NS 275ml ONE (18:08)
--- NOTE | 2020-04-08 19:20 | NUR ---
Received report from ERASMO Griffin and assumed care of patient.
[2020-04-08 20:00] VITALS: BP 180/83
--- NOTE | 2020-04-08 20:30 | NUR ---
Assessment completed on patient. Patient smiling and appears comfortable upon entry into room. Had to turn patient to administer hydrocortisone suppository. nailing machine feeder, Mckinley assisted with the turn. Pt immediately began to grimace and c/o pain. Pain medication not due at this time. B/P slightly elevated will monitor as this was taken while patient in pain and crying.
[2020-04-08] MEDS: Dakin's 0.125% Soln (Quarter Strength) 16oz TOPIC SCH (21:00)
--- NOTE | 2020-04-08 21:30 | NUR ---
Dr. Dong on unit assessing his patients. Spoke to this RN about patients pain level. Stated ok to administer Dilaudid every 4 hours to keep her comfortable since she is in so much pain. Also administering tramadol via g-tube when able. Administered pain medications per orders, see eMAR.
--- NOTE | 2020-04-08 21:58 | Cardiology Progress Note ---
Subjective BP has spiked today. Heart rates have stabilized since dialyzed again. CT scan revealed extensive thoracoabd aortic dissection- Chase Type B Dialysis per renal Pt is s/p paracentesis (50cc) Objective Last 24 Hour Vital Signs Date Time Temp Pulse Resp B/P (MAP) Pulse Ox O2 Delivery O2 Flow Rate FiO2 04/08/20 21:07 78 20 30 04/08/20 20:00 30 04/08/20 20:00 98.1 78 20 180/83 (115) 96 04/08/20 20:00 66 04/08/20 20:00 Mechanical Ventilator 04/08/20 19:06 62 15 30 04/08/20 18:00 153/73 04/08/20 16:30 97.5 04/08/20 16:00 30 04/08/20 16:00 Mechanical Ventilator 04/08/20 16:00 81 04/08/20 16:00 97.5 75 15 166/66 (99) 98 04/08/20 15:05 66 18 30 04/08/20 12:00 97.7 75 15 153/73 (99) 98 04/08/20 12:00 Mechanical Ventilator 04/08/20 12:00 153/73 04/08/20 12:00 30 04/08/20 12:00 75 04/08/20 10:35 67 16 30 04/08/20 08:00 73 04/08/20 08:00 97.7 75 15 147/73 (97) 98 04/08/20 08:00 Mechanical Ventilator 04/08/20 08:00 30 04/08/20 06:55 64 16 30 04/08/20 05:53 158/82 04/08/20 05:30 60 16 30 04/08/20 04:00 30 04/08/20 04:00 73 04/08/20 04:00 Mechanical Ventilator 04/08/20 04:00 97.7 68 15 158/82 (107) 98 04/08/20 03:31 74 15 30 04/08/20 01:29 71 14 30 04/08/20 00:11 153/68 04/08/20 00:00 Mechanical Ventilator 04/08/20 00:00 97.5 70 15 153/68 (96) 100 04/08/20 00:00 81 04/08/20 00:00 30 04/07/20 22:57 65 14 30 HEENT: Thin Trach secretions RHYTHM: NSR, SB LUNGS: bilateral rhonchi - few, trach site clean CARDIAC: normal rate, regular rhythm, normal S1 and S2 ABDOMEN: normal bowel sounds, non tender, soft, G-Tube intact EXTREMITIES: normal range of motion, non-tender, normal inspection Laboratory Tests Test 04/07/20 23:31 04/08/20 05:04 04/08/20 12:40 04/08/20 19:04 POC Whole Blood Glucose 106 MG/DL (74-106) 95 MG/DL (74-106) 113 MG/DL (74-106) H 93 MG/DL (74-106) Assessment/Plan Assessment/Plan Aortic dissections - [place] B Sepsis with recovered shock Sinus node disease with bradycardia Hx pacemaker explant Ischemic cardiomyopathy - hx CABG? Paroxysmal Atrial Fib Respiratory failure with trach Hx thoracic aortic aneurysm repair ESRD Anemia HypoPO4 Hypertension/HHD with rising BP range Remains off beta blockers; would not resume despite benefit in setting of AAA with dissection, as she has repeatedly developed significant bradycardia. DC metoclopramide, which can aggravate bradycardia. No need for emergent pacemaker at present. classroom monitor Vent support Antimicrobials DVT prophyl Advance antiHTN meds Non-surgical mngmt Deni Willams MD Apr 08, 2020 21:58
[2020-04-08] MEDS: Dyna-Hex 2% Top Sol 2oz TOPIC SCH (21:59)
[2020-04-08] MEDS: traMADol 50mg tab ORAL PRN (22:29)
--- NOTE | 2020-04-08 22:50 | General Progress Note ---
Subjective Constitutional: Reports: no symptoms HEENT: Reports: no symptoms Cardiovascular: Reports: no symptoms Respiratory: Reports: no symptoms Gastrointestinal/Abdominal: Reports: no symptoms Genitourinary: Reports: no symptoms Neurologic/Psychiatric: Reports: other - Tearful and depressed Endocrine: Reports: no symptoms Hematologic/Lymphatic: Reports: no symptoms Allergies: Coded Allergies: No Known Allergies (Unverified , 10/10/17) Objective Last 24 Hour Vital Signs Date Time Temp Pulse Resp B/P (MAP) Pulse Ox O2 Delivery O2 Flow Rate FiO2 04/08/20 21:07 78 20 30 04/08/20 20:00 30 04/08/20 20:00 98.1 78 20 180/83 (115) 96 04/08/20 20:00 66 04/08/20 20:00 Mechanical Ventilator 04/08/20 19:06 62 15 30 04/08/20 18:00 153/73 04/08/20 16:30 97.5 04/08/20 16:00 30 04/08/20 16:00 Mechanical Ventilator 04/08/20 16:00 81 04/08/20 16:00 97.5 75 15 166/66 (99) 98 04/08/20 15:05 66 18 30 04/08/20 12:00 97.7 75 15 153/73 (99) 98 04/08/20 12:00 Mechanical Ventilator 04/08/20 12:00 153/73 04/08/20 12:00 30 04/08/20 12:00 75 04/08/20 10:35 67 16 30 04/08/20 08:00 73 04/08/20 08:00 97.7 75 15 147/73 (97) 98 04/08/20 08:00 Mechanical Ventilator 04/08/20 08:00 30 04/08/20 06:55 64 16 30 04/08/20 05:53 158/82 04/08/20 05:30 60 16 30 04/08/20 04:00 30 04/08/20 04:00 73 04/08/20 04:00 Mechanical Ventilator 04/08/20 04:00 97.7 68 15 158/82 (107) 98 04/08/20 03:31 74 15 30 04/08/20 01:29 71 14 30 04/08/20 00:11 153/68 04/08/20 00:00 Mechanical Ventilator 04/08/20 00:00 97.5 70 15 153/68 (96) 100 04/08/20 00:00 81 04/08/20 00:00 30 04/07/20 22:57 65 14 30 Intake and Output 04/07/20 04/08/20 19:00 07:00 Intake Total 770 ml 600 ml Output Total 0 ml Balance 770 ml 600 ml Intake Free Water 250 ml 160 ml Tube Feeding 520 ml 440 ml Output Urine Total 0 ml Laboratory Tests 04/07/20 23:31: POC Whole Blood Glucose 106 04/08/20 05:04: POC Whole Blood Glucose 95 04/08/20 12:40: POC Whole Blood Glucose 113H 04/08/20 19:04: POC Whole Blood Glucose 93 Height (Feet): 5 Height (Inches): 3.00 Weight (Pounds): 128 General Appearance: WD/WN, mild distress EENT: TMs normal Neck: supple, normal inspection Cardiovascular: normal rate, regular rhythm, no gallop/murmur, no JVD Respiratory/Chest: lungs clear, normal breath sounds, no respiratory distress, no accessory muscle use Abdomen: non tender, soft, no organomegaly, no mass, abnormal bowel sounds Extremities: non-tender Neurologic: alert, oriented x 3, responsive, depressed affect Assessment/Plan Status Narrative Awake alert afebrile hemodynamically stable and she has been examined now for several days tearful because the quantity of the alert given to her is insufficient and request to go home patient is ready for place entering [facility]CF for either in thoracic surgical unit and the timing of aortic aneurysm Basil laboratory tests will be done in a.m. however replacement have been found to the patient to be assessed at [facility] and I am waiting for them to contact me in regard to this issue oratory tests will be done in a.m. Lucas Vera MD, MD Apr 08, 2020 22:50
[2020-04-09] VITALS: BP 134/96
--- NOTE | 2020-04-09 00:30 | NUR ---
Midnight assessment completed on patient. She is in pain, but too early for pain medications.VSS. Will continue to monitor.
[2020-04-09] MEDS: Sucralfate 1gm tab GT SCH ×5 (00:38→23:20)
[2020-04-09] MEDS: HydrALAZINE 50mg tab GT SCH ×5 (00:38→23:20)
[2020-04-09] MEDS: Metoclopramide 10mg/10ml Liq NG SCH ×5 (00:39→23:20)
[2020-04-09] MEDS: HYDROmorphone 1mg/ml Carpuject IVP PRN ×4 (02:20→22:38)
--- NOTE | 2020-04-09 02:45 | NUR ---
Pain medication given, see eMAR. Complete bath performed on patient with complete linen change. 5 leads for EKG changed on chest and new pulse oximeter placed on R middle finger to allow index finger to air out. Patient resting comfortably upon exiting the room. Will continue to monitor the patient.
[2020-04-09 04:00] VITALS: BP 139/58
--- NOTE | 2020-04-09 04:20 | NUR ---
Assessment completed, patient tolerated well. VSS will continue to monitor. Repositioned.
[2020-04-09] MEDS: Zinc Oxide Oint 2oz TOPIC SCH ×3 (06:22→21:22)
--- NOTE | 2020-04-09 06:25 | NUR ---
Pain medications given see eMAR. Patient repositioned and BG checked. VSS. Will continue to monitor.
[2020-04-09 06:28] LABS: HEMATOCRIT 22.6 % (37.0-47.0); HEMOGLOBIN 7.6 G/DL (12.0-16.0); MEAN CORPUSCULAR VOLUME 91 FL (80-99); PLATELET COUNT 241 K/UL (150-450); RED BLOOD COUNT 2.48 M/UL (4.20-5.40); RED CELL DISTRIBUTION WIDTH 13.4 % (11.6-14.8); WHITE BLOOD COUNT 6.5 K/UL (4.8-10.8)
[2020-04-09 06:49] LABS: ALANINE AMINOTRANSFERASE 17 U/L (12-78); ALBUMIN 1.3 G/DL (3.4-5.0); ALBUMIN/GLOBULIN RATIO 0.3 (1.0-2.7); ALKALINE PHOSPHATASE 134 U/L (46-116); ANION GAP 12 mmol/L (5-15); ASPARTATE AMINO TRANSFERASE 33 U/L (15-37); BILIRUBIN,TOTAL 0.5 MG/DL (0.2-1.0); BLOOD UREA NITROGEN 95 mg/dL (7-18); CALCIUM 8.3 MG/DL (8.5-10.1); CARBON DIOXIDE 27 MMOL/L (21-32); CHLORIDE 101 MMOL/L (98-107); CREATININE 2.5 MG/DL (0.55-1.30); PHOSPHORUS 2.7 MG/DL (2.5-4.9); POTASSIUM 3.4 MMOL/L (3.5-5.1); SODIUM 140 MMOL/L (136-145)
--- NOTE | 2020-04-09 06:53 | Hematology/Onc Progress Note ---
Assessment/Plan Assessment/Plan # Leukocytosis, now with likely bacteremia, as per ID care --> Cxr: : Large left abiola consolidation/effusion --> wbc 30-->40-->27->30->29-->35->32-->28-->21->10.2-->6.6 --> ABX angelo/vanc-->tobra/edson/vanc-->dapto/ceftazadine->off abx --> smear reviewed --> ID recs are noted # Anemia of chronic disease due to underlying chronic medical issues, multifactorial --> Anemia workup has been reviewed, cw acd --> No evidence of hemolysis is noted, peripheral smear has been reviewed. --> Hgb goal >7. Transfuse prn. --> Epogen required in prior --> Medications have been reviewed --> low threshold for gi evaluation in case has occult + --> hgb 1.9-->5-->7.1-->8.8-->8.1->7.5-> 8.2-->6. 8-->9.2-->8.4->7.7-->7.1-->8.8->8.7-->8.2 --> 1 unit prbc1/17, 2 units 01/15, 03/02, 03/18, 03/24 --> gi eval as needed # Elevated tumor markers, cea and ca 19.9 --> reviewed prior 01/27/20 cat scan a/p --> no masses noted, hold off further extensive w/u # Thrombocytopenia likely reactive v medication induced --> plt 200-->129->91-->86->100->78-->86-->87-->125->135 --> transfuse as needed --> r/o dic, has been ruled out --> anticoag as needed # Coagulopathy with inr 1.5 --> consider vit k/ffp as needed preprocedure --> labs noted # Aortic dissection as seen on Ct ==> when stable, consider transfer hloc # JAVIER initially >2 --> on ivfs --> per renal is on HD # Elevated d-dimer, likely infection related --> venous duplex prior neg --> in prior neg # Dysphagia s/p peg --> as per gi # Thoracic aortic dissection --> s/p repair early 2017 # Chronic Resp failure -> s/p trach/vent # Psychiatric history on ativan/haldol # [place] resident # Dvt ppx --> scds The timing of this note does not necessarily reflect the time of the patient was seen. Greatly appreciate consultation. Subjective Constitutional: Denies: no symptoms, chills, fever, malaise, weakness, other HEENT: Denies: no symptoms, eye pain, blurred vision, tearing, double vision, ear pain, ear discharge, nose pain, nose congestion, throat pain, throat swelling, mouth pain, mouth swelling, other Cardiovascular: Denies: no symptoms, chest pain, edema, irregular heart rate, lightheadedness, palpitations, syncope, other Gastrointestinal/Abdominal: Denies: no symptoms, abdomen distended, abdominal pain, black stools, tarry stools, blood in stool, constipated, diarrhea, difficulty swallowing, nausea, poor appetite, poor fluid intake, rectal bleeding, vomiting, other Genitourinary: Denies: no symptoms, burning, discharge, frequency, flank pain, hematuria, incontinence, pain, urgency, other Neurologic/Psychiatric: Denies: no symptoms, anxiety, depressed, emotional problems, headache, numbness, paresthesia, pre-existing deficit, seizure, ti ngling, tremors, weakness, other Endocrine: Denies: no symptoms, excessive sweating, flushing, intolerance to cold, intolerance to heat, increased hunger, increased thirst, increased urine, unexplained weight gain, unexplained weight loss, other Allergies: Coded Allergies: No Known Allergies (Unverified , 10/10/17) Subjective 03/04 nv, for 1 unit transfusion this am as hgb remains low, wbc better 03/05 egd was done did show large nonbleeding gastric ulcer, high tumor markers 03/06 nv, with davis overnight, bp remains stable, with occult + stool, roman Rn 03/09 nv, remains stable, on vanc/tobra/edson, meds reviewed, no bleeding 03/10 nv, on vent, no bleeding, receiving abx, no night sweats 03/11 nv, roman surgeon and pcp, with aortic dissection to transfer hloc when stable 03/12 nv, labs reviewed, wbc 21, hgb 7.5, otherwise is comfortable 03/13 nv, labs noted, no bleeding, wbc 13, hgb improved, meds reviewed 03/15 nv, meds reviewed, labs noted, no bleeding, on vent 03/16 nv/tv, peg, meds noted, hgb remains stable, improved to 10 2/ s/p egd, with gastric ulceration noted, hgb stable 03/18 labs noted, hgb 6.8, to get 1 unit prbc, meds reviewed 03/19 hgb 9.2, plt 78, no hemoptysis, is comfortable 03/20 labs reviewed, meds noted, no bleeding, roman rn 03/22 wound treatment, vent, with gtube, labs reviewed, roman rn 03/23 labs reviewed, meds noted, no bleeding, with gt 03/24 large bm overnight that was bloody, hgb 7.1, roman rn 03/25 labs pending this am, comfortable, nsr, meds noted 03/26 nv, vent, with gt, labs reviewed, hgb 8.8 03/27 nv, vent, labs reviewed, with gt, hgb stable 03/29 nv, vent, labs pending, meds reviewed, no bleeding 03/30 nv, t/v, with gt feeds, labs reviewed, meds noted 03/31 nv, t/v, oral secretions were suctioned, meds reviewed 04/01 nv, t/v, labs are reviewed, meds noted, hgb 7.4 04/02 gt leaking, facial grimacing, labs noted, no bleeding, roman rn 04/03 nv, labs noted, no bleeding, roman rn, h/h stable 04/04 nv, labs reviewed, gtube replacement as per Dr. Mccauley 04/05 nv, labs reviewed, meds noted no bleeding, roman rn 04/06 nv, labs, meds noted, no bleeding, on vt, no new changes 04/07 nv, meds reviewed, labs noted, no bleeding, bp was high on, transferred to icu 04/08 nv, labs noted, no bleeding, evaluated at the bedside 04/09 nv, labs noted, no bleeding, hgb 7.6, repeat pending Objective Objective Current Medications Medications (Trade) Dose Ordered Sig/Penny Route PRN Reason Start Time Stop Time Status Last Admin Dose Admin Aspirin (ASA) 81 mg DAILY GT 03/07/20 09:00 04/21/20 08:59 04/08/20 09:22 Chlorhexidine Gluconate (Ling-Hex 2%) 1 applic DAILY@1999 TOPIC 03/03/20 20:00 06/01/20 19:59 04/08/20 21:59 Dextrose (Dextrose 50%) 25 ml Q30M PRN IV Hypoglycemia 03/15/20 07:30 06/13/20 07:29 04/05/20 09:08 Dextrose (Dextrose 50%) 50 ml Q30M PRN IV Hypoglycemia 03/15/20 07:30 06/13/20 07:29 Famotidine (Pepcid) 20 mg BID GT 04/06/20 18:00 07/05/20 17:59 04/08/20 18:00 Hydralazine HCl (Apresoline) 25 mg Q6H PRN GT For High Blood Pressure 03/02/20 22:00 05/31/20 21:59 04/07/20 03:36 Hydralazine HCl (Apresoline) 50 mg Q6HR GT 04/07/20 00:00 07/06/20 00:00 04/09/20 06:21 Hydrocortisone (Anusol HC) 25 mg Q12HR RECTAL 03/23/20 21:00 06/21/20 08:59 04/08/20 21:00 Hydromorphone HCl (Dilaudid) 0.5 mg Q4H PRN IVP For Pain 04/02/20 20:30 04/09/20 20:29 04/09/20 02:20 Metoclopramide HCl (Reglan) 5 mg EVERY 6 HOURS NG 04/06/20 12:00 05/06/20 11:59 04/09/20 06:22 Sodium Hypochlorite (Dakin's Quarter Strength) 1 applic BEDTIME TOPIC 04/04/20 21:00 05/02/20 08:59 04/08/20 21:00 Sucralfate (Carafate) 1 gm EVERY 6 HOURS GT 03/17/20 18:00 06/09/20 08:59 04/09/20 06:21 Tramadol HCl (Ultram) 50 mg Q6H PRN ORAL Moderate Pain (Pain Scale 4-6) 03/26/20 19:30 04/09/20 19:29 04/08/20 22:29 Zinc Oxide (Zinc Oxide) 1 applic Q8HR TOPIC 03/25/20 22:00 06/22/20 17:59 04/09/20 06:22 Last 24 Hour Vital Signs Date Time Temp Pulse Resp B/P (MAP) Pulse Ox O2 Delivery O2 Flow Rate FiO2 04/09/20 06:21 139/94 04/09/20 04:46 52 15 30 04/09/20 04:00 98.1 59 15 139/58 (85) 97 04/09/20 04:00 Mechanical Ventilator 04/09/20 04:00 30 04/09/20 04:00 58 04/09/20 03:23 54 15 30 04/09/20 01:06 60 14 30 04/09/20 00:38 134/96 04/09/20 00:00 Mechanical Ventilator 04/09/20 00:00 98.1 61 21 134/96 (109) 97 04/08/20 22:52 64 14 30 04/08/20 21:07 78 20 30 04/08/20 20:00 30 04/08/20 20:00 98.1 78 20 180/83 (115) 96 04/08/20 20:00 66 04/08/20 20:00 Mechanical Ventilator 04/08/20 19:06 62 15 30 04/08/20 18:00 153/73 04/08/20 16:30 97.5 04/08/20 16:00 30 04/08/20 16:00 Mechanical Ventilator 04/08/20 16:00 81 04/08/20 16:00 97.5 75 15 166/66 (99) 98 04/08/20 15:05 66 18 30 04/08/20 12:00 97.7 75 15 153/73 (99) 98 04/08/20 12:00 Mechanical Ventilator 04/08/20 12:00 153/73 04/08/20 12:00 30 04/08/20 12:00 75 04/08/20 10:35 67 16 30 04/08/20 08:00 73 04/08/20 08:00 97.7 75 15 147/73 (97) 98 04/08/20 08:00 Mechanical Ventilator 2/24/21 08:00 30 04/08/20 06:55 64 16 30 04/08/20 05:53 158/82 04/08/20 05:30 60 16 30 04/08/20 04:00 30 04/08/20 04:00 73 04/08/20 04:00 Mechanical Ventilator 04/08/20 04:00 97.7 68 15 158/82 (107) 98 04/08/20 03:31 74 15 30 04/08/20 01:29 71 14 30 04/08/20 00:11 153/68 04/08/20 00:00 Mechanical Ventilator 04/08/20 00:00 97.5 70 15 153/68 (96) 100 04/08/20 00:00 81 04/08/20 00:00 30 04/07/20 22:57 65 14 30 04/07/20 21:33 66 16 30 04/07/20 20:00 30 04/07/20 20:00 68 04/07/20 20:00 Mechanical Ventilator 04/07/20 20:00 97.7 61 14 127/73 (91) 96 04/07/20 19:30 63 14 30 04/07/20 17:55 143/62 04/07/20 16:07 98.1 04/07/20 16:07 98.1 04/07/20 16:00 65 04/07/20 16:00 30 04/07/20 16:00 Mechanical Ventilator 04/07/20 16:00 97.5 63 15 145/64 (91) 95 04/07/20 15:13 143/62 04/07/20 15:06 74 20 30 04/07/20 12:00 30 04/07/20 12:00 52 04/07/20 12:00 97.5 53 14 143/58 (86) 97 04/07/20 12:00 Mechanical Ventilator 04/07/20 11:17 71 19 30 04/07/20 08:58 60 04/07/20 08:00 30 04/07/20 08:00 98.1 64 14 144/70 (94) 96 04/07/20 08:00 Mechanical Ventilator 04/07/20 06:54 64 14 30 Intake and Output 04/08/20 04/09/20 19:00 07:00 Intake Total 140 ml 490 ml Balance 140 ml 490 ml Intake Free Water 60 ml 50 ml Tube Feeding 80 ml 440 ml # Voids 1 Labs Test 04/06/20 09:51 04/07/20 03:30 04/07/20 08:41 04/07/20 14:00 Arterial Blood pH 7.494 (7.350-7.450) 7.493 (7.350-7.450) Arterial Blood Partial Pressure CO2 33.7 mmHg (35.0-45.0) 34.1 mmHg (35.0-45.0) Arterial Blood Partial Pressure O2 66.1 mmHg (75.0-100.0) 59.7 mmHg (75.0-100.0) Arterial Blood HCO3 25.3 mmol/L (22.0-26.0) 25.6 mmol/L (22.0-26.0) Arterial Blood Oxygen Saturation 92.2 % (95-100) 90.0 % (95-100) Arterial Blood Base Excess 2.1 (-2-2) 2.3 (-2-2) Rojas Test N/a Positive White Blood Count 8.1 K/UL (4.8-10.8) Red Blood Count 2.69 M/UL (4.20-5.40) Hemoglobin 8.1 G/DL (12.0-16.0) Hematocrit 24.8 % (37.0-47.0) Mean Corpuscular Volume 92 FL (80-99) Mean Corpuscular Hemoglobin 30.2 PG (27.0-31.0) Mean Corpuscular Hemoglobin Concent 32.8 G/DL (32.0-36.0) Red Cell Distribution Width 14.1 % (11.6-14.8) Platelet Count 253 K/UL (150-450) Mean Platelet Volume 5.4 FL (6.5-10.1) Neutrophils (%) (Auto) 64.7 % (45.0-75.0) Lymphocytes (%) (Auto) 26.2 % (20.0-45.0) Monocytes (%) (Auto) 5.9 % (1.0-10.0) Eosinophils (%) (Auto) 2.6 % (0.0-3.0) Basophils (%) (Auto) 0.5 % (0.0-2.0) Sodium Level 140 MMOL/L (136-145) Potassium Level 4.0 MMOL/L (3.5-5.1) Chloride Level 102 MMOL/L (98-107) Carbon Dioxide Level 26 MMOL/L (21-32) Anion Gap 12 mmol/L (5-15) Blood Urea Nitrogen 128 mg/dL (7-18) Creatinine 3.1 MG/DL (0.55-1.30) Estimat Glomerular Filtration Rate 16.1 mL/min (>60) Glucose Level 95 MG/DL (74-106) Calcium Level 8.2 MG/DL (8.5-10.1) Total Bilirubin 0.6 MG/DL (0.2-1.0) Aspartate Amino Transf (AST/SGOT) 38 U/L (15-37) Alanine Aminotransferase (ALT/SGPT) 21 U/L (12-78) Alkaline Phosphatase 164 U/L (46-116) Total Protein 5.9 G/DL (6.4-8.2) Albumin 1.4 G/DL (3.4-5.0) Globulin 4.5 g/dL Albumin/Globulin Ratio 0.3 (1.0-2.7) POC Whole Blood Glucose 94 MG/DL (74-106) Test 04/07/20 19:12 04/07/20 23:31 04/08/20 05:04 04/08/20 12:40 POC Whole Blood Glucose 98 MG/DL (74-106) 106 MG/DL (74-106) 95 MG/DL (74-106) 113 MG/DL (74-106) Test 04/08/20 19:04 04/09/20 02:50 04/09/20 03:31 04/09/20 06:10 POC Whole Blood Glucose 93 MG/DL (74-106) 109 MG/DL (74-106) White Blood Count 6.5 K/UL (4.8-10.8) Red Blood Count 2.48 M/UL (4.20-5.40) Hemoglobin 7.6 G/DL (12.0-16.0) Hematocrit 22.6 % (37.0-47.0) Mean Corpuscular Volume 91 FL (80-99) Mean Corpuscular Hemoglobin 30.6 PG (27.0-31.0) Mean Corpuscular Hemoglobin Concent 33.6 G/DL (32.0-36.0) Red Cell Distribution Width 13.4 % (11.6-14.8) Platelet Count 241 K/UL (150-450) Mean Platelet Volume 5.9 FL (6.5-10.1) Neutrophils (%) (Auto) % (45.0-75.0) Lymphocytes (%) (Auto) % (20.0-45.0) Monocytes (%) (Auto) % (1.0-10.0) Eosinophils (%) (Auto) % (0.0-3.0) Basophils (%) (Auto) % (0.0-2.0) Sodium Level 140 MMOL/L (136-145) Potassium Level 3.4 MMOL/L (3.5-5.1) Chloride Level 101 MMOL/L (98-107) Carbon Dioxide Level 27 MMOL/L (21-32) Anion Gap 12 mmol/L (5-15) Blood Urea Nitrogen 95 mg/dL (7-18) Creatinine 2.5 MG/DL (0.55-1.30) Estimat Glomerular Filtration Rate 20.6 mL/min (>60) Glucose Level 98 MG/DL (74-106) Calcium Level 8.3 MG/DL (8.5-10.1) Phosphorus Level 2.7 MG/DL (2.5-4.9) Magnesium Level 2.4 MG/DL (1.8-2.4) Total Bilirubin 0.5 MG/DL (0.2-1.0) Aspartate Amino Transf (AST/SGOT) 33 U/L (15-37) Alanine Aminotransferase (ALT/SGPT) 17 U/L (12-78) Alkaline Phosphatase 134 U/L (46-116) C-Reactive Protein, Quantitative 9.2 mg/dL (0.00-0.90) Pro-B-Type Natriuretic Peptide > 49315 pg/mL (0-125) Total Protein 5.6 G/DL (6.4-8.2) Albumin 1.3 G/DL (3.4-5.0) Globulin 4.3 g/dL Albumin/Globulin Ratio 0.3 (1.0-2.7) Height (Feet): 5 Height (Inches): 3.00 Weight (Pounds): 128 Objective Physical Exam: Vitals: reviewed General: NAD HEENT: nc, at Neck: supple ++trach/vent Chest: clear breath sounds bilaterally Cardiovascular: RRR, no s3, s4 Abdomen: soft, nontender, nd +gtube Extremities: no cce, normal range of motion Neuro: alert Evan Muhammad MD Apr 09, 2020 06:53
--- NOTE | 2020-04-09 07:15 | NUR ---
This RN continues care of patient. Will continue to monitor.
[2020-04-09 08:00] VITALS: BP 136/85
--- NOTE | 2020-04-09 08:10 | Infectious Diseases Prog Note ---
Assessment/Plan 49yo F with: MDR Kleb pna bacteremia AMS Anemia to 1.9 on admission 03/02 Leukocytosis to 40, improving GPC bacteremia UTI Pneumonia c/b mod-large R pleural effusion and small L pleural effusion - compressive atelectasis Hypotension 03/02 BCx 1/2 +Staph epi, 12 +Staph haemolyticus (m/l skin colonizers) UA+, UCx >100k P.stuartii (S-angelo) & CRE P.mirablis (R-polyB/colistin, S- tobramycin, per [facility] is "intrinsically resistant to Avycaz/Zerbaxa" not clear why to me and they are unable to elaborate more) COVID rapid neg, PCR neg CXR: Tracheostomy again demonstrated. Interim placement of a right jugular tunneled dialysis catheter. There is infiltrate and volume loss in the left lung, particularly in the perihilar region, suprahilar region, and base. Consolidation at the lung base is similar. The perihilar and suprahilar region consolidation is new. The right lung pleural space are clear. C.dif neg 03/03 BCx NTD 03/06 BCx 2/2 +MDR Kleb pna (arnett-R, including R-polyB, colistin), 02/14 +E.faecium VRE (R-amp, S-linezolid) 03/08 BCx NTD 03/09 CT CAP: Very limited exam, as described, due to massive anasarca. This could limit visualization of the discrete fluid collection such as an abscess. Extensive thoracoabdominal aortic dissection, as described above. Current flap begins just distal to the left subclavian artery origin; per report, there is history of surgical repair so there may have been surgical repair of the ascending thoracic aorta. Bilateral pleural effusions, slightly smaller than on earlier exams. Extensive atelectasis as a result. Extensive pulmonary par enchymal disease as detailed above. This may reflect pneumonia or pulmonary edema or both. Evidence of pulmonary arterial hypertension, with dilatation of the pulmonary artery. Considerable ascites fluid. 03/11 Chest US: Small right, trace left pleural effusions, insufficient for safe thoracentesis AF Sepsis Leukocytosis Hypoxia on vent Pneumonia c/b L pleural effusion (recurrent, prior determined to be transudative) - s/p thora 01/21, 1050cc removed Volume overload, BNP >35,0000, likely 2/2 progressive CKD --> ESRD ?Pancreatitis, Lipase >2000 Acute anemia to 5s CONS bacteremia, ?contaminant Aflutter w/ RVR 01/13 BCx 2/2 +S. epi COVID PCR neg Flu neg CXR: Large left pleural effusion. Bilateral interstitial and airspace infiltrates versus edema MRSA nares neg 01/16 BCx NTD 01/17 BCx /2 +Staph auricularis (skin colonizer) 01/18 Resp cx +MDR CRE PsA (S-gent, I-colistin, R-polyB) (Intermediate to Zerbaxa, Resistant to Avycaz) 01/18 C.dif neg 01/18 CXR: Similar opacification of the left hemithorax likely representing combination of pleural effusion with atelectasis versus pneumonia/edema. Decreased but persistent hazy opacity throughout the right lung may represent edema versus infectious/inflammatory process. 01/20 BCx NTD 01/21 L thora 1050 cc removed, cx NTD 01/25 Wound cx from Gtube site +CRE Kleb pna (arnett-R) and MDR PsA (colonizers) 01/26 CT A/P: Limited exam, due to severe diffuse anasarca. Ascites. Bilateral pleural effusions. Basilar pulmonary atelectatic changes and consolidation. Gastrostomy. Atrophic left kidney with a nephroureteral stents again demonstrated. Possible retrococcygeal decubitus changes. Correlate with clinical findings, consider MRI if there is concern for sacral osteomyelitis. Right hip intertrochanteric fracture, also previously demonstrated. Left femoral dialysis catheter. Nonspecific right lobe liver lesion is unchanged, not well- demonstrated. ctasia bordering on aneurysmal dilatation and possible chronic dissection of the distal thoracic aorta, also previously described. JAVIER on CKD On previous admission Sep-Oct 2019 required HD for short period Going to start HD this admission again R/o COVID 01/14 COVID PCR neg 12/29 neg at [facility] per report H/o UTI 10/15 u/a wbc 30-40, nit neg, leuk +3; ucx ESBL P. mirablis, ESBL M. morganii //20 u/a wbc tnct, nit neg, leuk +3; ucx >100k MDR P. stuarti (S Ceftriaxone, Meropenem) 8/25 u/a wbc tnct, nit neg, leuk ; ucx >100k VRE 10/15/19 u/a wbc tnct; ucx >100k ESBL P. stuarti (S ertapenem, aztreonam) H/o transudative pleural effusion 11/28 Sp Thora (w: 169, PMN: 2%, L: 49% , LDH: 57, prot 2.5); cx Neg H/o PNA 10/15/19 Resp cx ESBL P. mirabilis, MDR P.a. (S only to Gent) 09/22 Resp cx + MDR PsA (S-gent; I-colistin; R-levofloxacin, Zosyn, angelo) 09/16/19 Sp cx ESBL P. mirablis H/o PPM site (pocket) infection and pocket abscess 2ry to S. epi-11/2018, sp >6weeks IV vancomycin 11/27 SP ABBIE: no evidence for vegetation on any of the valves 11/26/18 SP PPM removal: OR findings:The fibrous capsule enclosing the generator was then opened and there was a [id number] amount of yellowish fluid drainage. The generator was then removed.Atrial and ventricular leads were detached. The necrotic tissue of the pocket was then removed and the pocket was flushed with an antibiotic solution. Capsule, wound tissue and lead tip cx: Neg 2d echo: no vegetation seen US chest: 4.6 x 3.4 x 0.9 cm hypoechoic/anechoic area overlying left chest pacemaker power pack. This could represent either a discrete fluid collection or a focal area of very edematous tissue. Infected fluid pocket also possible. 11/18 Bcx 3/4 S. epi; 11/20 Bcx neg; 11/24 Bcx Neg; 11/27 Bcx Neg CAD s/p CABG GERD/gastritis Afib HTN Dysphagia sp GT Aortic dissection s/p repair 2017 S/p PPM Parkinson's Disease Schizophrenia Anxiety COPD Chronic resp failure s/p trach Hx of tracheal bleeding [place] resident ([facility]) VRE and MRSA colonized Plan: Monitor off abx 03/21 SP daptomycin #12, Avycaz #16 for VRE and MDR Kleb bacteremia 03/16 SP tobramycin IV #10 for resistant UTI 03/10/20 SP edson #4 empiric, vanco #9 01/31 SP angelo/inh tobra #10 for pna 01/23 SP vanco IV #10 given CONS/GPC bacteremia 01/16 SP Zosyn #2 01/14 SP dex 10mg in ED 12/10 SP IV Gentamycin #10 12/07 SP Meropenem #10 12/01 SP IV Vancomycin #5 11/28 Sp Cefepime #2 and IV Gentamycin x1 Monitor CBC/CMP Monitor temp curve, hemodynamics Monitor resp status D/w RN Thank you for this consult. [facility] will continue to follow. Subjective Allergies: Coded Allergies: No Known Allergies (Unverified , 10/10/17) Afebrile No Leukocytosis On Vent 30% O2 Objective Last 24 Hour Vital Signs Date Time Temp Pulse Resp B/P (MAP) Pulse Ox O2 Delivery O2 Flow Rate FiO2 04/09/20 06:21 139/94 04/09/20 04:46 52 15 30 04/09/20 04:00 98.1 59 15 139/58 (85) 97 04/09/20 04:00 Mechanical Ventilator 04/09/20 04:00 30 04/09/20 04:00 58 04/09/20 03:23 54 15 30 04/09/20 01:06 60 14 30 04/09/20 00:38 134/96 04/09/20 00:00 Mechanical Ventilator 04/09/20 00:00 98.1 61 21 134/96 (109) 97 04/08/20 22:52 64 14 30 04/08/20 21:07 78 20 30 04/08/20 20:00 30 04/08/20 20:00 98.1 78 20 180/83 (115) 96 04/08/20 20:00 66 04/08/20 20:00 Mechanical Ventilator 04/08/20 19:06 62 15 30 04/08/20 18:00 153/73 04/08/20 16:30 97.5 04/08/20 16:00 30 04/08/20 16:00 Mechanical Ventilator 04/08/20 16:00 81 04/08/20 16:00 97.5 75 15 166/66 (99) 98 04/08/20 15:05 66 18 30 04/08/20 12:00 97.7 75 15 153/73 (99) 98 04/08/20 12:00 Mechanical Ventilator 04/08/20 12:00 153/73 04/08/20 12:00 30 04/08/20 12:00 75 04/08/20 10:35 67 16 30 Height (Feet): 5 Height (Inches): 3.00 Weight (Pounds): 128 Gen: NAD on Vent HEENT: NCAT, trach Pulm: BL chest rise on vent Abd: Soft, ND, +PEG Skin: No visible rashes Neuro: Awake, minimally interactive Lines: R chest Permacath dressing c/d/i Laboratory Tests Test 04/08/20 12:40 04/08/20 19:04 04/09/20 02:50 04/09/20 03:31 POC Whole Blood Glucose 113 MG/DL (74-106) H 93 MG/DL (74-106) Pending White Blood Count 6.5 K/UL (4.8-10.8) Red Blood Count 2.48 M/UL (4.20-5.40) L Hemoglobin 7.6 G/DL (12.0-16.0) L Hematocrit 22.6 % (37.0-47.0) L Mean Corpuscular Volume 91 FL (80-99) Mean Corpuscular Hemoglobin 30.6 PG (27.0-31.0) Mean Corpuscular Hemoglobin Concent 33.6 G/DL (32.0-36.0) Red Cell Distribution Width 13.4 % (11.6-14.8) Platelet Count 241 K/UL (150-450) Mean Platelet Volume 5.9 FL (6.5-10.1) L Neutrophils (%) (Auto) % (45.0-75.0) Lymphocytes (%) (Auto) % (20.0-45.0) Monocytes (%) (Auto) % (1.0-10.0) Eosinophils (%) (Auto) % (0.0-3.0) Basophils (%) (Auto) % (0.0-2.0) Sodium Level 140 MMOL/L (136-145) Potassium Level 3.4 MMOL/L (3.5-5.1) L Chloride Level 101 MMOL/L (98-107) Carbon Dioxide Level 27 MMOL/L (21-32) Anion Gap 12 mmol/L (5-15) Blood Urea Nitrogen 95 mg/dL (7-18) H Creatinine 2.5 MG/DL (0.55-1.30) H Estimat Glomerular Filtration Rate 20.6 mL/min (>60) Glucose Level 98 MG/DL (74-106) Calcium Level 8.3 MG/DL (8.5-10.1) L Phosphorus Level 2.7 MG/DL (2.5-4.9) Magnesium Level 2.4 MG/DL (1.8-2.4) Total Bilirubin 0.5 MG/DL (0.2-1.0) Aspartate Amino Transf (AST/SGOT) 33 U/L (15-37) Alanine Aminotransferase (ALT/SGPT) 17 U/L (12-78) Alkaline Phosphatase 134 U/L (46-116) H C-Reactive Protein, Quantitative 9.2 mg/dL (0.00-0.90) H Pro-B-Type Natriuretic Peptide > 95112 pg/mL (0-125) H Total Protein 5.6 G/DL (6.4-8.2) L Albumin 1.3 G/DL (3.4-5.0) L Globulin 4.3 g/dL Albumin/Globulin Ratio 0.3 (1.0-2.7) L Test 04/09/20 06:10 POC Whole Blood Glucose 109 MG/DL (74-106) H Current Medications Medications (Trade) Dose Ordered Sig/Penny Route PRN Reason Start Time Stop Time Status Last Admin Dose Admin Aspirin (ASA) 81 mg DAILY GT 03/07/20 09:00 04/21/20 08:59 04/08/20 09:22 Chlorhexidine Gluconate (Ling-Hex 2%) 1 applic DAILY@1999 TOPIC 03/03/20 20:00 06/01/20 19:59 04/08/20 21:59 Dextrose (Dextrose 50%) 25 ml Q30M PRN IV Hypoglycemia 03/15/20 07:30 06/13/20 07:29 04/05/20 09:08 Dextrose (Dextrose 50%) 50 ml Q30M PRN IV Hypoglycemia 03/15/20 07:30 06/13/20 07:29 Famotidine (Pepcid) 20 mg BID GT 04/06/20 18:00 07/05/20 17:59 04/08/20 18:00 Hydralazine HCl (Apresoline) 25 mg Q6H PRN GT For High Blood Pressure 03/02/20 22:00 05/31/20 21:59 04/07/20 03:36 Hydralazine HCl (Apresoline) 50 mg Q6HR GT 04/07/20 00:00 07/06/20 00:00 04/09/20 06:21 Hydrocortisone (Anusol HC) 25 mg Q12HR RECTAL 03/23/20 21:00 06/21/20 08:59 04/08/20 21:00 Hydromorphone HCl (Dilaudid) 0.5 mg Q4H PRN IVP For Pain 04/02/20 20:30 04/09/20 20:29 04/09/20 02:20 Metoclopramide HCl (Reglan) 5 mg EVERY 6 HOURS NG 04/06/20 12:00 05/06/20 11:59 04/09/20 06:22 Sodium Hypochlorite (Dakin's Quarter Strength) 1 applic BEDTIME TOPIC 04/04/20 21:00 05/02/20 08:59 04/08/20 21:00 Sucralfate (Carafate) 1 gm EVERY 6 HOURS GT 03/17/20 18:00 06/09/20 08:59 04/09/20 06:21 Tramadol HCl (Ultram) 50 mg Q6H PRN ORAL Moderate Pain (Pain Scale 4-6) 03/26/20 19:30 04/09/20 19:29 04/08/20 22:29 Zinc Oxide (Zinc Oxide) 1 applic Q8HR TOPIC 03/25/20 22:00 06/22/20 17:59 04/09/20 06:22 Deni Gilbert MD Apr 09, 2020 08:10
--- NOTE | 2020-04-09 08:30 | NUR ---
Report given to ERASMO Hough who assumed care of patient.
--- NOTE | 2020-04-09 08:32 | NUR ---
NURSE NOTES: Received report ERASMO Romero,on ventilator,head elevated,asleep
[2020-04-09] MEDS: Hydrocortisone 25mg supp RECTAL SCH ×2 (09:00→21:22)
--- NOTE | 2020-04-09 09:34 | Pulmonology Progress Note ---
Subjective ROS Limited/Unobtainable: Yes Interval Events: none major reported per nursing HEENT: Repors: no symptoms Respiratory: Reports: no symptoms Cardiovascular: Reports: no symptoms Gastrointestinal/Abdominal: Reports: diarrhea Allergies: Coded Allergies: No Known Allergies (Unverified , 10/10/17) All Systems: reviewed and negative except above Objective Last 24 Hour Vital Signs Date Time Temp Pulse Resp B/P (MAP) Pulse Ox O2 Delivery O2 Flow Rate FiO2 04/09/20 08:00 98.1 74 21 136/85 (102) 98 04/09/20 08:00 Mechanical Ventilator 04/09/20 08:00 30 04/09/20 07:39 57 14 30 04/09/20 06:21 139/94 04/09/20 04:46 52 15 30 04/09/20 04:00 98.1 59 15 139/58 (85) 97 04/09/20 04:00 Mechanical Ventilator 04/09/20 04:00 30 04/09/20 04:00 58 04/09/20 03:23 54 15 30 04/09/20 01:06 60 14 30 04/09/20 00:38 134/96 04/09/20 00:00 Mechanical Ventilator 04/09/20 00:00 98.1 61 21 134/96 (109) 97 04/08/20 22:52 64 14 30 04/08/20 21:07 78 20 30 04/08/20 20:00 30 04/08/20 20:00 98.1 78 20 180/83 (115) 96 04/08/20 20:00 66 04/08/20 20:00 Mechanical Ventilator 04/08/20 19:06 62 15 30 04/08/20 18:00 153/73 04/08/20 16:30 97.5 04/08/20 16:00 30 04/08/20 16:00 Mechanical Ventilator 04/08/20 16:00 81 04/08/20 16:00 97.5 75 15 166/66 (99) 98 04/08/20 15:05 66 18 30 04/08/20 12:00 97.7 75 15 153/73 (99) 98 04/08/20 12:00 Mechanical Ventilator 04/08/20 12:00 153/73 04/08/20 12:00 30 04/08/20 12:00 75 04/08/20 10:35 67 16 30 Intake and Output 04/08/20 04/09/20 19:00 07:00 Intake Total 140 ml 490 ml Balance 140 ml 490 ml Intake Free Water 60 ml 50 ml Tube Feeding 80 ml 440 ml # Voids 1 General Appearance: no acute distress HEENT: atraumatic, status post trach Respiratory: lungs clear Cardiovascular: normal rate, regular rhythm Extremities: other - edema bilateral Laboratory Tests 04/08/20 12:40: POC Whole Blood Glucose 113H 04/08/20 19:04: POC Whole Blood Glucose 93 04/09/20 02:50: POC Whole Blood Glucose [Pending] 04/09/20 03:31: White Blood Count 6.5, Red Blood Count 2.48L, Hemoglobin 7.6L, Hematocrit 22.6L, Mean Corpuscular Volume 91, Mean Corpuscular Hemoglobin 30.6, Mean Corpuscular Hemoglobin Concent 33.6, Red Cell Distribution Width 13.4, Platelet Count 241, Mean Platelet Volume 5.9L, Neutrophils (%) (Auto) , Lymphocytes (%) (Auto) , Monocytes (%) (Auto) , Eosinophils (%) (Auto) , Basophils (%) (Auto) , Sodium Level 140, Potassium Level 3.4L, Chloride Level 101, Carbon Dioxide Level 27, Anion Gap 12, Blood Urea Nitrogen 95H, Creatinine 2.5H, Estimat Glomerular Filtration Rate 20.6, Glucose Level 98, Calcium Level 8.3L, Phosphorus Level 2.7, Magnesium Level 2.4, Total Bilirubin 0.5, Aspartate Amino Transf (AST/SGOT) 33, Alanine Aminotransferase (ALT/SGPT) 17, Alkaline Phosphatase 134H, C- Reactive Protein, Quantitative 9.2H, Pro-B-Type Natriuretic Peptide > 06567I, Total Protein 5.6L, Albumin 1.3L, Globulin 4.3, Albumin/Globulin Ratio 0.3L 04/09/20 06:10: POC Whole Blood Glucose 109H Current Medications Medications (Trade) Dose Ordered Sig/Penny Route PRN Reason Start Time Stop Time Status Last Admin Dose Admin Aspirin (ASA) 81 mg DAILY GT 03/07/20 09:00 04/21/20 08:59 04/08/20 09:22 Chlorhexidine Gluconate (Ling-Hex 2%) 1 applic DAILY@1999 TOPIC 03/03/20 20:00 06/01/20 19:59 04/08/20 21:59 Dextrose (Dextrose 50%) 25 ml Q30M PRN IV Hypoglycemia 03/15/20 07:30 06/13/20 07:29 04/05/20 09:08 Dextrose (Dextrose 50%) 50 ml Q30M PRN IV Hypoglycemia 03/15/20 07:30 06/13/20 07:29 Famotidine (Pepcid) 20 mg BID GT 04/06/20 18:00 07/05/20 17:59 04/08/20 18:00 Hydralazine HCl (Apresoline) 25 mg Q6H PRN GT For High Blood Pressure 03/02/20 22:00 05/31/20 21:59 04/07/20 03:36 Hydralazine HCl (Apresoline) 50 mg Q6HR GT 04/07/20 00:00 07/06/20 00:00 04/09/20 06:21 Hydrocortisone (Anusol HC) 25 mg Q12HR RECTAL 03/23/20 21:00 06/21/20 08:59 04/08/20 21:00 Hydromorphone HCl (Dilaudid) 0.5 mg Q4H PRN IVP For Pain 04/02/20 20:30 04/09/20 20:29 04/09/20 02:20 Metoclopramide HCl (Reglan) 5 mg EVERY 6 HOURS NG 04/06/20 12:00 05/06/20 11:59 04/09/20 06:22 Sodium Hypochlorite (Dakin's Quarter Strength) 1 applic BEDTIME TOPIC 04/04/20 21:00 05/02/20 08:59 04/08/20 21:00 Sucralfate (Carafate) 1 gm EVERY 6 HOURS GT 03/17/20 18:00 06/09/20 08:59 04/09/20 06:21 Tramadol HCl (Ultram) 50 mg Q6H PRN ORAL Moderate Pain (Pain Scale 4-6) 03/26/20 19:30 04/09/20 19:29 04/08/20 22:29 Zinc Oxide (Zinc Oxide) 1 applic Q8HR TOPIC 03/25/20 22:00 06/22/20 17:59 04/09/20 06:22 Assessment/Plan Assessment/Plan 1. Chronic respiratory failure. - CT chest/abd/pelv: improving pleural effusion 2. Mechanical ventilation. - Now on 30% FiO2 saturating well - suction secretions as needed 3. Chronic tracheostomy. 4. Chronic G-tube. 5. Anemia. - s/p transfusion - stool OB positive (03/02, 03/03, 03/22) - off anticoags 6. Renal failure. 7. Leukocytosis and sepsis. - WBC now wnl 8. Sepsis UTI 9. Gram positive cocci bacteremia - f/u BCx negative for growth 10. COVID-19 negative 11. Diarrhea - C. diff neg 12. Hypoglycemia - resolved 13. Bradycardia - no urgent indication for pacemaker per cardio 14. Gastric ulcer - on PPI -No active bleeding - GI following 15. Pleural effusion - small; insufficient volume for safe thoracentesis - on HD 16. thoracic aortic aneurysm - noted on CT imaging - pt needs emergent transfer out to [facility] for CT surgery evaluation, primary MD aware - Pt might not be a candidate for TAA repair 17. Ascites - s/p paracentesis (2/3), 2.3L out 18. DVT ppx - on SCD -Venous duplex ultrasound of legs negative for DVT (03/25) The care of this patient was discussed with my supervising physician Time spent for this encounter was approximately 31 minutes Cruz Wilson Apr 09, 2020 09:34
[2020-04-09] MEDS: Aspirin Baby 81mg GT SCH (10:43)
[2020-04-09 11:27] VITALS: BP 135/66
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
--- NOTE | 2020-04-09 12:56 | General Progress Note ---
Subjective ROS Limited/Unobtainable: No Allergies: Coded Allergies: No Known Allergies (Unverified , 10/10/17) Objective Last 24 Hour Vital Signs Date Time Temp Pulse Resp B/P (MAP) Pulse Ox O2 Delivery O2 Flow Rate FiO2 04/09/20 11:27 98.2 60 20 135/66 (89) 96 04/09/20 11:26 60 14 30 04/09/20 08:00 98.1 74 21 136/85 (102) 98 04/09/20 08:00 Mechanical Ventilator 04/09/20 08:00 30 04/09/20 07:39 57 14 30 04/09/20 06:21 139/94 04/09/20 04:46 52 15 30 04/09/20 04:00 98.1 59 15 139/58 (85) 97 04/09/20 04:00 Mechanical Ventilator 04/09/20 04:00 30 04/09/20 04:00 58 04/09/20 03:23 54 15 30 04/09/20 01:06 60 14 30 04/09/20 00:38 134/96 04/09/20 00:00 Mechanical Ventilator 04/09/20 00:00 98.1 61 21 134/96 (109) 97 04/08/20 22:52 64 14 30 04/08/20 21:07 78 20 30 04/08/20 20:00 30 04/08/20 20:00 98.1 78 20 180/83 (115) 96 04/08/20 20:00 66 04/08/20 20:00 Mechanical Ventilator 04/08/20 19:06 62 15 30 04/08/20 18:00 153/73 04/08/20 16:30 97.5 04/08/20 16:00 30 04/08/20 16:00 Mechanical Ventilator 04/08/20 16:00 81 04/08/20 16:00 97.5 75 15 166/66 (99) 98 04/08/20 15:05 66 18 30 Intake and Output 04/08/20 04/09/20 19:00 07:00 Intake Total 140 ml 490 ml Balance 140 ml 490 ml Intake Free Water 60 ml 50 ml Tube Feeding 80 ml 440 ml # Voids 1 Laboratory Tests 04/08/20 19:04: POC Whole Blood Glucose 93 04/09/20 02:50: POC Whole Blood Glucose [Pending] 04/09/20 03:31: White Blood Count 6.5, Red Blood Count 2.48L, Hemoglobin 7.6L, Hematocrit 22.6L, Mean Corpuscular Volume 91, Mean Corpuscular Hemoglobin 30.6, Mean Corpuscular Hemoglobin Concent 33.6, Red Cell Distribution Width 13.4, Platelet Count 241, Mean Platelet Volume 5.9L, Neutrophils (%) (Auto) , Lymphocytes (%) (Auto) , Monocytes (%) (Auto) , Eosinophils (%) (Auto) , Basophils (%) (Auto) , Sodium Level 140, Potassium Level 3.4L, Chloride Level 101, Carbon Dioxide Level 27, Anion Gap 12, Blood Urea Nitrogen 95H, Creatinine 2.5H, Estimat Glomerular Filtration Rate 20.6, Glucose Level 98, Calcium Level 8.3L, Phosphorus Level 2.7, Magnesium Level 2.4, Total Bilirubin 0.5, Aspartate Amino Transf (AST/SGOT) 33, Alanine Aminotransferase (ALT/SGPT) 17, Alkaline Phosphatase 134H, C- Reactive Protein, Quantitative 9.2H, Pro-B-Type Natriuretic Peptide > 58422L, Total Protein 5.6L, Albumin 1.3L, Globulin 4.3, Albumin/Globulin Ratio 0.3L 04/09/20 06:10: POC Whole Blood Glucose 109H Height (Feet): 5 Height (Inches): 3.00 Weight (Pounds): 128 General Appearance: no apparent distress EENT: normal ENT inspection Neck: supple Cardiovascular: normal rate Respiratory/Chest: decreased breath sounds Abdomen: normal bowel sounds, non tender, soft Extremities: non-tender Assessment/Plan Problem List: (1) Hx of CABG ICD Codes: Z95.1 - Presence of aortocoronary bypass graft SNOMED: 343972458, 877973736 (2) History of tracheostomy ICD Codes: Z98.890 - Other specified postprocedural states SNOMED: 462759994, 451509775 (3) PEG (percutaneous endoscopic gastrostomy) status ICD Codes: Z93.1 - Gastrostomy status SNOMED: 898038252, 892041968 (4) Renal failure ICD Codes: N19 - Unspecified kidney failure SNOMED: 75403545, 808498226 (5) Severe anemia ICD Codes: D64.9 - Anemia, unspecified SNOMED: 177844044 Assessment/Plan: s/p EGD gastric ulcer on ppi and carafate fu H&H GTF fu labs supportive care Inder Mccauley MD Apr 09, 2020 12:55
--- NOTE | 2020-04-09 13:18 | Nephrology Progress Note ---
Assessment/Plan Problem List: (1) Renal failure (ARF), acute on chronic (2) Anemia (3) Hyponatremia (4) Respiratory failure Assessment (1) JAVIER (acute kidney injury) (2) Renal failure (ARF), acute on chronic (3) Feeding by G-tube (4) Tracheostomy in place (5) Electrolyte imbalance, hyponatremia (6) Anemia, severe (7) Respiratory failure, acute and chronic (8) history of elevated lipase, pancreatitis (9) Elevated troponin I (10) Sepsis Plan April 09: Dialyzed yesterday. Discussed with RN. Hemoglobin low. Suggest transfusion 1 unit of packed RBCs. April 08: Dialysis today. Blood pressure medication adjusted. Check lab tomorrow. Continue per consultants. April 07: Patient remains full code. Heart rate improved. Medication list reviewed. Labs reviewed. Will order dialysis for tomorrow. Continue per consultants. April 06: Full code. Intubated via trach on ventilator. FiO2 30%. Blood sugar stable. D50 will be discontinued. Continue feeding. Dialysis as needed. April 05: Remains in ICU. Low heart rate persists. Will initiate low-dose hydralazine with blood pressure parameters. Last dialysis April 03. Blood sugar stable on 30 mL of D10 hourly. GT feeding started. Continue to monitor electrolytes renal parameters and arrange for dialysis as needed. April 04: Patient currently in ICU due to low heart rate. Blood pressure is stable. Dialyzed yesterday. Labs reviewed. Renal parameters and electrolytes stable. Medication list reviewed. Continue per cardiology with regard to bradycardia. April 03: Labs reviewed. We will order dialysis today. Continue per consultants. April 02: Labs reviewed. No need for dialysis today. Continue to monitor renal parameters. April 01: Labs reviewed. Renal parameters stable. No dialysis today. Continue per consultants. March 31: No labs drawn today. Renal parameters stable as of yesterday. Will check lab tomorrow. Dialysis as needed. March 30: Labs reviewed. Low phosphorus addressed. Continue per PMD and consultants. Dialysis as needed. March 29: Dialyzed yesterday. No CHEM panel drawn today. We will continue to monitor renal parameters. Continue per consultants. March 28: Due for dialysis today. Labs reviewed. Stable from renal standpoint of view. March 27: Due for dialysis tomorrow. Labs reviewed. Medication list reviewed. Continue per current management. March 26: Last dialyzed March 24. Labs reviewed. Low phosphorus replaced. Continue to monitor renal parameters. Dialysis as needed. March 25: Dialyzed yesterday. Labs reviewed. Low phosphorus replaced. Continue per current management. Hemoglobin higher. March 24: Labs reviewed. Due for dialysis today. Continue per current management. Hemoglobin lower. Transfusion per dry wall sprayer. March 23: Labs reviewed. Dialyzed yesterday. Next dialysis tomorrow. Anemia management per dry wall sprayer. March 22: Labs reviewed. Due for dialysis today. Discussed with RN. Agree with discontinuation of the Norman catheter. Hemoglobin lower. Transfusion per dry wall sprayer. March 21: Labs reviewed. Will arrange for dialysis tomorrow. Continue per consultants. Will hold phosphorus binders at this time. March 20: Labs reviewed. Patient was dialyzed yesterday. Electrolyte abnormalities corrected. Continue per current management. March 19: Due for dialysis today. Abnormal labs noted. All will be corrected after dialysis. March 18: Labs reviewed. Will dialyze tomorrow. Patient being transfused today. Patient due for abdominal paracentesis. We will keep the Norman in. Continue to monitor renal parameters and dialyze as needed. March 17: No CHEM panel done today. CBC reviewed. Hemoglobin is lowering. Dialyzed yesterday. Will check lab tomorrow. Continue per consultants. March 16: Labs reviewed. Due for dialysis today. Hemoglobin 10.2 today. Continue to monitor renal parameters. March 15: Labs reviewed. Dialyzed March 13. Due for dialysis March 16. Hemoglobin lower. 1 unit of packed RBCs ordered. Per orders. March 14: No labs drawn today. Dialyzed yesterday. Full code. Will check lab tomorrow. Dialysis as needed. March 13: Labs reviewed. Due for dialysis today. Patient remains full code. Continue per current management. March 12: Labs reviewed. Dialyzed yesterday. Due for dialysis tomorrow. Discussed with RN. Patient full code. Continue per current management. March 11: Labs reviewed. Dialyzed this morning. Phosphorus binders dose adjusted. Continue per consultants. Continue to monitor renal parameters. CT: Extensive thoracoabdominal aortic dissection March 10: Labs reviewed. Will order dialysis tomorrow. Phosphorus binders added. Continue per consultants. March 09: No chemistry panel done today. Patient dialyzed yesterday. On dextrose 10% for hypoglycemia. We will check labs tomorrow. Dialysis as needed. March 08: Labs reviewed. Will order dialysis today. Blood sugar low. D10 50 cc an hour started. Continue as is. March 07: Labs reviewed. Dialyzed March 05 and March 06. Continue to monitor renal parameters and hemoglobin. Abnormal electrolytes addressed. IV fluids stopped. Per orders. March 06: Labs reviewed. Dialyzed yesterday. Will reorder dialysis for today. Continue to monitor renal parameters. Hemoglobin 8.4. Patient full code. March 05: Labs reviewed. Patient did not receive dialysis until this morning. Proceed with dialysis. Continue to monitor renal parameters and hemoglobin and hematocrit. March 04: Labs reviewed. Hemoglobin lower. Patient actively bleeding. Was not dialyzed yesterday. Due for GI endoscopy. Continue fluid challenge. Transfusion as needed. Dialysis today. March 03: Labs reviewed. Dialysis ordered. Blood pressure medication all discontinued due to hypotensive state. Albumin bolus given. Continue to monitor renal parameters. Medication list reviewed. Midodrin for low blood pressure ordered Subjective ROS Limited/Unobtainable: Yes Objective Objective Last 24 Hour Vital Signs Date Time Temp Pulse Resp B/P (MAP) Pulse Ox O2 Delivery O2 Flow Rate FiO2 04/09/20 11:27 98.2 60 20 135/66 (89) 96 04/09/20 11:26 60 14 30 04/09/20 08:00 98.1 74 21 136/85 (102) 98 04/09/20 08:00 Mechanical Ventilator 04/09/20 08:00 30 04/09/20 07:39 57 14 30 04/09/20 06:21 139/94 04/09/20 04:46 52 15 30 04/09/20 04:00 98.1 59 15 139/58 (85) 97 04/09/20 04:00 Mechanical Ventilator 04/09/20 04:00 30 04/09/20 04:00 58 04/09/20 03:23 54 15 30 04/09/20 01:06 60 14 30 04/09/20 00:38 134/96 04/09/20 00:00 Mechanical Ventilator 04/09/20 00:00 98.1 61 21 134/96 (109) 97 04/08/20 22:52 64 14 30 04/08/20 21:07 78 20 30 04/08/20 20:00 30 04/08/20 20:00 98.1 78 20 180/83 (115) 96 04/08/20 20:00 66 2/24/21 20:00 Mechanical Ventilator 04/08/20 19:06 62 15 30 04/08/20 18:00 153/73 04/08/20 16:30 97.5 04/08/20 16:00 30 04/08/20 16:00 Mechanical Ventilator 04/08/20 16:00 81 04/08/20 16:00 97.5 75 15 166/66 (99) 98 04/08/20 15:05 66 18 30 Intake and Output 04/08/20 04/09/20 19:00 07:00 Intake Total 140 ml 490 ml Balance 140 ml 490 ml Intake Free Water 60 ml 50 ml Tube Feeding 80 ml 440 ml # Voids 1 Current Medications Medications (Trade) Dose Ordered Sig/Penny Route PRN Reason Start Time Stop Time Status Last Admin Dose Admin Aspirin (ASA) 81 mg DAILY GT 03/07/20 09:00 04/21/20 08:59 04/09/20 10:43 Chlorhexidine Gluconate (Ling-Hex 2%) 1 applic DAILY@1999 TOPIC 03/03/20 20:00 06/01/20 19:59 04/08/20 21:59 Dextrose (Dextrose 50%) 25 ml Q30M PRN IV Hypoglycemia 03/15/20 07:30 06/13/20 07:29 04/05/20 09:08 Dextrose (Dextrose 50%) 50 ml Q30M PRN IV Hypoglycemia 03/15/20 07:30 06/13/20 07:29 Famotidine (Pepcid) 20 mg BID GT 04/06/20 18:00 07/05/20 17:59 04/09/20 10:43 Hydralazine HCl (Apresoline) 25 mg Q6H PRN GT For High Blood Pressure 03/02/20 22:00 05/31/20 21:59 04/07/20 03:36 Hydralazine HCl (Apresoline) 50 mg Q6HR GT 04/07/20 00:00 07/06/20 00:00 04/09/20 06:21 Hydrocortisone (Anusol HC) 25 mg Q12HR RECTAL 03/23/20 21:00 06/21/20 08:59 04/09/20 09:00 Hydromorphone HCl (Dilaudid) 0.5 mg Q4H PRN IVP For Pain 04/02/20 20:30 04/09/20 20:29 04/09/20 10:46 Metoclopramide HCl (Reglan) 5 mg EVERY 6 HOURS NG 04/06/20 12:00 05/06/20 11:59 04/09/20 06:22 Sodium Hypochlorite (Dakin's Quarter Strength) 1 applic BEDTIME TOPIC 04/04/20 21:00 05/02/20 08:59 04/08/20 21:00 Sucralfate (Carafate) 1 gm EVERY 6 HOURS GT 03/17/20 18:00 06/09/20 08:59 04/09/20 06:21 Tramadol HCl (Ultram) 50 mg Q6H PRN ORAL Moderate Pain (Pain Scale 4-6) 03/26/20 19:30 04/09/20 19:29 04/08/20 22:29 Zinc Oxide (Zinc Oxide) 1 applic Q8HR TOPIC 03/25/20 22:00 06/22/20 17:59 04/09/20 06:22 Laboratory Tests 04/08/20 19:04: POC Whole Blood Glucose 93 04/09/20 02:50: POC Whole Blood Glucose [Pending] 04/09/20 03:31: White Blood Count 6.5, Red Blood Count 2.48L, Hemoglobin 7.6L, Hematocrit 22.6L, Mean Corpuscular Volume 91, Mean Corpuscular Hemoglobin 30.6, Mean Corpuscular Hemoglobin Concent 33.6, Red Cell Distribution Width 13.4, Platelet Count 241, Mean Platelet Volume 5.9L, Neutrophils (%) (Auto) , Lymphocytes (%) (Auto) , Monocytes (%) (Auto) , Eosinophils (%) (Auto) , Basophils (%) (Auto) , Sodium Level 140, Potassium Level 3.4L, Chloride Level 101, Carbon Dioxide Level 27, Anion Gap 12, Blood Urea Nitrogen 95H, Creatinine 2.5H, Estimat Glomerular Filtration Rate 20.6, Glucose Level 98, Calcium Level 8.3L, Phosphorus Level 2.7, Magnesium Level 2.4, Total Bilirubin 0.5, Aspartate Amino Transf (AST/SGOT) 33, Alanine Aminotransferase (ALT/SGPT) 17, Alkaline Phosphatase 134H, C- Reactive Protein, Quantitative 9.2H, Pro-B-Type Natriuretic Peptide > 67167L, Total Protein 5.6L, Albumin 1.3L, Globulin 4.3, Albumin/Globulin Ratio 0.3L 04/09/20 06:10: POC Whole Blood Glucose 109H Height (Feet): 5 Height (Inches): 3.00 Weight (Pounds): 128 General Appearance: no apparent distress EENT: other - Trach to vent Cardiovascular: normal rate Respiratory/Chest: decreased breath sounds Abdomen: distended Johnny Houston MD Apr 09, 2020 13:18
--- NOTE | 2020-04-09 13:51 | NUR ---
PALLET SORTER NOTES SPOKE WITH ARVIN FROM [facility], ADDITIONAL INFRMATION FAXED. ARVIN IS REQUESTING AUTHORIZATION. SPOKE WITH MILTON FROM [employer] MADE AWARE OF [facility] REQUESTING AUTHORIZATION. PER MILTON HE WILL WORK ON IT IRENE. WILL FOLLOW UP. Addendum: 04/09/20 at 1504 by KATERIN CARRILLO RN CM RECIEVED AUTHORIZATION TO TRANSFER FROM MILTON [facility] FROM [facility], FAXED TO [facility]. WILL FOLLOW UP. Addendum: 04/09/20 at 1624 by KATERIN CARRILLO RN CM Received a call from Arvin FROM [facility] TRANSFER IS PENDING MD TO HANDOFF. Addendum: 04/09/20 at 1702 by KATERIN CARRILLO RN RECE[facility]ED [facility] AT [facility]. DECLINED TO ACCEPT PT DUE TO NON URGENT. MADE AWARE.
--- NOTE | 2020-04-09 15:07 | NUR ---
insurance CLINICALS FAXED TO [facility] T: [phone] F: [phone]
[2020-04-09 16:00] VITALS: BP 159/72
[2020-04-09] MEDS: traMADol 50mg tab ORAL PRN (16:07)
--- NOTE | 2020-04-09 17:24 | NUR ---
*-*DISCHARGE PLANNING*-* PATIENT HAS BEEN REFERRED BACK TO: [facility] P: [phone] ROOM# [id number]
--- NOTE | 2020-04-09 19:05 | NUR ---
RESPIRATORY NOTE: received pt on AC VC 14, 500VT, 30%, PEEP +5. Pt is trach-dependent w/ a cuffed, Shiley 7 XLT tube. Pt is arousable/disoriented. B/S sara. rhonchi, sxn small to moderate amounts of thick, velasco-yellow secretions. Vent plugged into red outlet, ambubag at bedside. Pt resting comfortably, in no apparent distress at this time. Will continue plan of care.
--- NOTE | 2020-04-09 19:33 | NUR ---
NURSE NOTES: Received report from ERASMO Hough. Pt is awake, non-verbal, able to communicate through mouthing words. Appears to be in emotional distress. SR on security monitor. O2 saturation 95% on AC 14, TV 500, FiO2 30, PEEP 5. Pt has lots of oral and tracheal secretions requiring frequent suctioning. GT is intact and dry, Nepro running at 40cc/hr. R UA chest permacath clean and dry, L wrist 18g asymptomatic and flushing well. Skin issues and safety issues noted and reinforced. HOB elevated, side rails x3, call light within reach, bed alarmed, locked, and in lowest position. Will continue to monitor. WIll continue plan of care.
--- NOTE | 2020-04-09 19:42 | NUR ---
NURSE NOTES: Dr. Dong at bedside, lowered parameters for hydralazine 25mg GT PRN from SBP 160 to SBP 140. Orders noted and will carry out.
[2020-04-09] MEDS: HydrALAZINE 25mg tab GT PRN (19:50)
[2020-04-09] MEDS: Dyna-Hex 2% Top Sol 2oz TOPIC SCH (19:50)
--- NOTE | 2020-04-09 19:57 | General Progress Note ---
Subjective Constitutional: Reports: no symptoms HEENT: Reports: no symptoms Cardiovascular: Reports: no symptoms Respiratory: Reports: no symptoms Gastrointestinal/Abdominal: Reports: no symptoms Neurologic/Psychiatric: Reports: depressed, other - Easily tearful Endocrine: Reports: no symptoms Hematologic/Lymphatic: Reports: no symptoms Allergies: Coded Allergies: No Known Allergies (Unverified , 10/10/17) Objective Last 24 Hour Vital Signs Date Time Temp Pulse Resp B/P (MAP) Pulse Ox O2 Delivery O2 Flow Rate FiO2 04/09/20 19:03 77 15 30 04/09/20 17:59 159/72 04/09/20 16:00 98.4 73 20 159/72 (101) 96 04/09/20 16:00 73 04/09/20 15:24 78 18 30 04/09/20 14:02 150/70 04/09/20 12:00 68 04/09/20 11:27 98.2 60 20 135/66 (89) 96 04/09/20 11:26 60 14 30 04/09/20 08:00 53 04/09/20 08:00 98.1 74 21 136/85 (102) 98 04/09/20 08:00 Mechanical Ventilator 04/09/20 08:00 30 04/09/20 07:39 57 14 30 04/09/20 06:21 139/94 04/09/20 04:46 52 15 30 04/09/20 04:00 98.1 59 15 139/58 (85) 97 04/09/20 04:00 Mechanical Ventilator 04/09/20 04:00 30 04/09/20 04:00 58 04/09/20 03:23 54 15 30 04/09/20 01:06 60 14 30 04/09/20 00:38 134/96 04/09/20 00:00 Mechanical Ventilator 04/09/20 00:00 98.1 61 21 134/96 (109) 97 04/08/20 22:52 64 14 30 04/08/20 21:07 78 20 30 04/08/20 20:00 30 04/08/20 20:00 98.1 78 20 180/83 (115) 96 04/08/20 20:00 66 04/08/20 20:00 Mechanical Ventilator Intake and Output 0 04/08/20 04/09/20 19:00 07:00 Intake Total 140 ml 490 ml Balance 140 ml 490 ml Intake Free Water 60 ml 50 ml Tube Feeding 80 ml 440 ml # Voids 1 Laboratory Tests 04/09/20 02:50: POC Whole Blood Glucose [Pending] 04/09/20 03:31: White Blood Count 6.5, Red Blood Count 2.48L, Hemoglobin 7.6L, Hematocrit 22.6L, Mean Corpuscular Volume 91, Mean Corpuscular Hemoglobin 30.6, Mean Corpuscular Hemoglobin Concent 33.6, Red Cell Distribution Width 13.4, Platelet Count 241, Mean Platelet Volume 5.9L, Neutrophils (%) (Auto) , Lymphocytes (%) (Auto) , Monocytes (%) (Auto) , Eosinophils (%) (Auto) , Basophils (%) (Auto) , Sodium Level 140, Potassium Level 3.4L, Chloride Level 101, Carbon Dioxide Level 27, Anion Gap 12, Blood Urea Nitrogen 95H, Creatinine 2.5H, Estimat Glomerular Filtration Rate 20.6, Glucose Level 98, Calcium Level 8.3L, Phosphorus Level 2.7, Magnesium Level 2.4, Total Bilirubin 0.5, Aspartate Amino Transf (AST/SGOT) 33, Alanine Aminotransferase (ALT/SGPT) 17, Alkaline Phosphatase 134H, C- Reactive Protein, Quantitative 9.2H, Pro-B-Type Natriuretic Peptide > 98415M, Total Protein 5.6L, Albumin 1.3L, Globulin 4.3, Albumin/Globulin Ratio 0.3L 04/09/20 06:10: POC Whole Blood Glucose 109H 04/09/20 17:17: POC Whole Blood Glucose 102 Height (Feet): 5 Height (Inches): 3.00 Weight (Pounds): 128 General Appearance: WD/WN, no apparent distress, alert EENT: normal ENT inspection Neck: supple Cardiovascular: normal rate, regular rhythm Respiratory/Chest: lungs clear, no respiratory distress, no accessory muscle use, decreased breath sounds Abdomen: normal bowel sounds, non tender, soft, no organomegaly, no mass Extremities: non-tender Neurologic: alert, oriented x 3, responsive Skin: warm/dry Assessment/Plan Status Narrative Patient is awake alert afebrile hemodynamically stable but easily tearful clinical advantages assess patient condition decided the patient does not need to be transferred to cardiovascular surgical unit as patient is stable and will not require surgery or clinical conclusion that has been achieved here by multiple physician patient is now planned to be transferred to [facility] if she needs dialysis repeat laboratory tests will be done in a.m. the case will be discussed with the lighting specialist as a Lucas Paul MD, MD Apr 09, 2020 19:57
[2020-04-09 20:00] VITALS: BP 159/65
[2020-04-09] MEDS: Dakin's 0.125% Soln (Quarter Strength) 16oz TOPIC SCH (21:22)
--- NOTE | 2020-04-09 22:16 | NUR ---
NURSE NOTES: Changed pts sacral wound dressing while giving hydrocortisone suppository. Oral care given. Pt appears to be in pain, will administer PRN pain meds when due.
--- NOTE | 2020-04-09 22:30 | Cardiology Progress Note ---
Subjective DATE OF SERVICE: Apr 09, 2020 BP control improved. Heart rates have stabilized since dialyzed. CT scan revealed extensive thoracoabd aortic dissection- [place] Type B Dialysis per renal Objective Last 24 Hour Vital Signs Date Time Temp Pulse Resp B/P (MAP) Pulse Ox O2 Delivery O2 Flow Rate FiO2 04/09/20 21:36 84 24 30 04/09/20 20:00 98.2 72 15 159/65 (96) 95 04/09/20 20:00 30 04/09/20 20:00 Mechanical Ventilator 04/09/20 20:00 72 04/09/20 19:50 159/72 04/09/20 19:03 77 15 30 04/09/20 17:59 159/72 04/09/20 16:00 Mechanical Ventilator 04/09/20 16:00 30 04/09/20 16:00 98.4 73 20 159/72 (101) 96 04/09/20 16:00 73 04/09/20 15:24 78 18 30 04/09/20 14:02 150/70 04/09/20 12:00 Mechanical Ventilator 04/09/20 12:00 68 04/09/20 12:00 30 04/09/20 11:27 98.2 60 20 135/66 (89) 96 04/09/20 11:26 60 14 30 04/09/20 08:00 53 04/09/20 08:00 98.1 74 21 136/85 (102) 98 04/09/20 08:00 Mechanical Ventilator 04/09/20 08:00 30 04/09/20 07:39 57 14 30 04/09/20 06:21 139/94 04/09/20 04:46 52 15 30 04/09/20 04:00 98.1 59 15 139/58 (85) 97 04/09/20 04:00 Mechanical Ventilator 04/09/20 04:00 30 04/09/20 04:00 58 04/09/20 03:23 54 15 30 04/09/20 01:06 60 14 30 04/09/20 00:38 134/96 04/09/20 00:00 Mechanical Ventilator 04/09/20 00:00 98.1 61 21 134/96 (109) 97 04/08/20 22:52 64 14 30 HEENT: Thin Trach secretions RHYTHM: NSR, SB LUNGS: bilateral rhonchi - few, trach site clean CARDIAC: normal rate, regular rhythm, normal S1 and S2 ABDOMEN: normal bowel sounds, non tender, soft, G-Tube intact EXTREMITIES: normal range of motion, non-tender, normal inspection Laboratory Tests Test 04/09/20 02:50 04/09/20 03:31 04/09/20 06:10 04/09/20 17:17 POC Whole Blood Glucose Pending 109 MG/DL (74-106) H 102 MG/DL (74-106) White Blood Count 6.5 K/UL (4.8-10.8) Red Blood Count 2.48 M/UL (4.20-5.40) L Hemoglobin 7.6 G/DL (12.0-16.0) L Hematocrit 22.6 % (37.0-47.0) L Mean Corpuscular Volume 91 FL (80-99) Mean Corpuscular Hemoglobin 30.6 PG (27.0-31.0) Mean Corpuscular Hemoglobin Concent 33.6 G/DL (32.0-36.0) Red Cell Distribution Width 13.4 % (11.6-14.8) Platelet Count 241 K/UL (150-450) Mean Platelet Volume 5.9 FL (6.5-10.1) L Neutrophils (%) (Auto) % (45.0-75.0) Lymphocytes (%) (Auto) % (20.0-45.0) Monocytes (%) (Auto) % (1.0-10.0) Eosinophils (%) (Auto) % (0.0-3.0) Basophils (%) (Auto) % (0.0-2.0) Sodium Level 140 MMOL/L (136-145) Potassium Level 3.4 MMOL/L (3.5-5.1) L Chloride Level 101 MMOL/L (98-107) Carbon Dioxide Level 27 MMOL/L (21-32) Anion Gap 12 mmol/L (5-15) Blood Urea Nitrogen 95 mg/dL (7-18) H Creatinine 2.5 MG/DL (0.55-1.30) H Estimat Glomerular Filtration Rate 20.6 mL/min (>60) Glucose Level 98 MG/DL (74-106) Calcium Level 8.3 MG/DL (8.5-10.1) L Phosphorus Level 2.7 MG/DL (2.5-4.9) Magnesium Level 2.4 MG/DL (1.8-2.4) Total Bilirubin 0.5 MG/DL (0.2-1.0) Aspartate Amino Transf (AST/SGOT) 33 U/L (15-37) Alanine Aminotransferase (ALT/SGPT) 17 U/L (12-78) Alkaline Phosphatase 134 U/L (46-116) H C-Reactive Protein, Quantitative 9.2 mg/dL (0.00-0.90) H Pro-B-Type Natriuretic Peptide > 30726 pg/mL (0-125) H Total Protein 5.6 G/DL (6.4-8.2) L Albumin 1.3 G/DL (3.4-5.0) L Globulin 4.3 g/dL Albumin/Globulin Ratio 0.3 (1.0-2.7) L Assessment/Plan Assessment/Plan Aortic dissections - [place] B Sepsis with recovered shock Sinus node disease with bradycardia Hx pacemaker explant Ischemic cardiomyopathy - hx CABG? Paroxysmal Atrial Fib Respiratory failure with trach Hx thoracic aortic aneurysm repair ESRD Anemia HypoPO4 Hypertension/HHD with rising BP range Remains off beta blockers; would not resume despite benefit in setting of AAA with dissection, as she has repeatedly developed significant bradycardia. DC metoclopramide, which can aggravate bradycardia. No need for emergent pacemaker at present. bus monitor Vent support Antimicrobials DVT prophyl Advance antiHTN meds until BP optimized Non-surgical mngmt Deni Willams MD Apr 09, 2020 22:30
[2020-04-10] VITALS: BP 139/73
[2020-04-10] MEDS: traMADol 50mg tab GT PRN ×2 (00:40→08:39)
[2020-04-10] MEDS: HydrALAZINE 25mg tab GT PRN (03:40)
[2020-04-10] MEDS: HYDROmorphone 1mg/ml Carpuject IVP PRN ×3 (03:43→20:23)
[2020-04-10 04:00] VITALS: BP 145/73
[2020-04-10] MEDS: Sucralfate 1gm tab GT SCH ×3 (05:24→18:22)
[2020-04-10] MEDS: Metoclopramide 10mg/10ml Liq NG SCH ×3 (05:24→18:22)
[2020-04-10] MEDS: HydrALAZINE 50mg tab GT SCH ×3 (05:24→18:22)
[2020-04-10] MEDS: Zinc Oxide Oint 2oz TOPIC SCH ×3 (05:25→22:36)
--- NOTE | 2020-04-10 05:38 | NUR ---
NURSE NOTES: Cleaned and turned pt, changed linens and gowns. Oral care provided. Pt's pain appears to have lessened due to dilaudid and tramadol prn given around the clock. Status remains unchanged, stable at this time. Will continue to monitor. Will continue plan of care.
[2020-04-10 05:53] LABS: BASOPHILS % (AUTO) 0.6 % (0.0-2.0); EOSINOPHILS % (AUTO) 3.9 % (0.0-3.0); HEMATOCRIT 23.6 % (37.0-47.0); MEAN CORPUSCULAR VOLUME 92 FL (80-99); MONOCYTES % (AUTO) 6.4 % (1.0-10.0); NEUTROPHILS % (AUTO) 67.1 % (45.0-75.0); PLATELET COUNT 283 K/UL (150-450); RED BLOOD COUNT 2.58 M/UL (4.20-5.40); RED CELL DISTRIBUTION WIDTH 13.5 % (11.6-14.8); WHITE BLOOD COUNT 9.5 K/UL (4.8-10.8)
--- NOTE | 2020-04-10 07:05 | NUR ---
NURSE HAND-OFF REPORT: Important Events on Shift:[No acute events] Patient Status: [Stable] Diet: [Nepro 40cc/hr] Pending Orders: [NA] Pending Results/Labs:[NA] Pending MD notification:[NA] Latest Vital Signs: Temperature 97.2 , Pulse 66 , B/P 138 /59 , Respiratory Rate 15 , O2 SAT 98 , Mechanical Ventilator, O2 Flow Rate . Vital Sign Comment: [Stable] EKG Rhythm: Sinus Rhythm Rhythm change?: N Notified?: N -Dr Екатерина HATFIELD Response: Order Received& Read Back Latest [place] Fall Score: 50 Fall Risk: High Risk Safety Measures: Call light Within Reach, Bed Alarm Zone 2, Side Rails Side Rails x3, Bed position Low and Locked. Fall Precautions: Yellow Socks Report given to [ERASMO oHugh].
--- NOTE | 2020-04-10 07:05 | NUR ---
NURSE NOTES: Received patient awake ,head elevated,on G tube feeding,overlay mattress with pressure ulcer,incontinent with external female device,right chest permacath dressing dry intact,,made comfortable
--- NOTE | 2020-04-10 07:22 | NUR ---
RD ASSESSMENT & RECOMMENDATIONS SEE CARE ACTIVITY FOR COMPLETE ASSESSMENT DAILY ESTIMATED NEEDS: Needs based on Critical care, wound, renal dysfunction 59.5 kg 27-22 kcals/kg [id number] total kcals W/ HD (1.5-2.0) g protein/kg 89-119 g total protein Fluid per MD mL/kg . total fluid mLs NUTRITION DIAGNOSIS: * Swallowing difficulty R/T dysphagia, respiratory status as evidenced by vent dep via trach, GT Dep. * Increase kcal and pro needs r/t wound healing, renal dysfunction as evidenced by h/o stage 4 sacral wound, and HD. CURRENT TF: Nepro @ 40ml/hr x 24 hrs ENTERAL NUTRITION RECOMMENDATIONS: Nepro @40ml/hr x 24 hrs + Prosource 1pkt BID to provide 960ml, 1728kcal, 78g+22g prot, 779ml free water * Maintain goal rate of 40ml/hr. * When tolerating at goal, add Prosource 1pkt BID to better meet increased protein needs (additional 11g prot/each) * Water flush per MD/ HOB over 30 degrees ADDITIONAL RECOMMENDATIONS: * Calibrated bed scale, wts fluctuating * Monitor for HD continuity- last HD 04/08 * WC eval-> w/ TF orders add FRANKLIN in 4oz H2O BID via GT Vit C per nephrology, add Nephrovite 1 tab daily. * Monitor BGs closely for hypoglycemia On Bedside BG checks * Monitor lytes, replete as needed (K low)
--- NOTE | 2020-04-10 07:51 | Infectious Diseases Prog Note ---
Assessment/Plan 49yo F with: MDR Kleb pna bacteremia AMS Anemia to 1.9 on admission 03/02 Leukocytosis to 40, improving GPC bacteremia UTI Pneumonia c/b mod-large R pleural effusion and small L pleural effusion - compressive atelectasis Hypotension 03/02 BCx 1/2 +Staph epi, 12 +Staph haemolyticus (m/l skin colonizers) UA+, UCx >100k P.stuartii (S-angelo) & CRE P.mirablis (R-polyB/colistin, S- tobramycin, per [facility] is "intrinsically resistant to Avycaz/Zerbaxa" not clear why to me and they are unable to elaborate more) COVID rapid neg, PCR neg CXR: Tracheostomy again demonstrated. Interim placement of a right jugular tunneled dialysis catheter. There is infiltrate and volume loss in the left lung, particularly in the perihilar region, suprahilar region, and base. Consolidation at the lung base is similar. The perihilar and suprahilar region consolidation is new. The right lung pleural space are clear. C.dif neg 03/03 BCx NTD 03/06 BCx 2/2 +MDR Kleb pna (arnett-R, including R-polyB, colistin), 02/14 +E.faecium VRE (R-amp, S-linezolid) 03/08 BCx NTD 03/09 CT CAP: Very limited exam, as described, due to massive anasarca. This could limit visualization of the discrete fluid collection such as an abscess. Extensive thoracoabdominal aortic dissection, as described above. Current flap begins just distal to the left subclavian artery origin; per report, there is history of surgical repair so there may have been surgical repair of the ascending thoracic aorta. Bilateral pleural effusions, slightly smaller than on earlier exams. Extensive atelectasis as a result. Extensive pulmonary par enchymal disease as detailed above. This may reflect pneumonia or pulmonary edema or both. Evidence of pulmonary arterial hypertension, with dilatation of the pulmonary artery. Considerable ascites fluid. 03/11 Chest US: Small right, trace left pleural effusions, insufficient for safe thoracentesis AF Sepsis Leukocytosis Hypoxia on vent Pneumonia c/b L pleural effusion (recurrent, prior determined to be transudative) - s/p thora 01/21, 1050cc removed Volume overload, BNP >35,0000, likely 2/2 progressive CKD --> ESRD ?Pancreatitis, Lipase >2000 Acute anemia to 5s CONS bacteremia, ?contaminant Aflutter w/ RVR 01/13 BCx 2/2 +S. epi COVID PCR neg Flu neg CXR: Large left pleural effusion. Bilateral interstitial and airspace infiltrates versus edema MRSA nares neg 01/16 BCx NTD 01/17 BCx /2 +Staph auricularis (skin colonizer) 01/18 Resp cx +MDR CRE PsA (S-gent, I-colistin, R-polyB) (Intermediate to Zerbaxa, Resistant to Avycaz) 01/18 C.dif neg 01/18 CXR: Similar opacification of the left hemithorax likely representing combination of pleural effusion with atelectasis versus pneumonia/edema. Decreased but persistent hazy opacity throughout the right lung may represent edema versus infectious/inflammatory process. 01/20 BCx NTD 01/21 L thora 1050 cc removed, cx NTD 01/25 Wound cx from Gtube site +CRE Kleb pna (arnett-R) and MDR PsA (colonizers) 01/26 CT A/P: Limited exam, due to severe diffuse anasarca. Ascites. Bilateral pleural effusions. Basilar pulmonary atelectatic changes and consolidation. Gastrostomy. Atrophic left kidney with a nephroureteral stents again demonstrated. Possible retrococcygeal decubitus changes. Correlate with clinical findings, consider MRI if there is concern for sacral osteomyelitis. Right hip intertrochanteric fracture, also previously demonstrated. Left femoral dialysis catheter. Nonspecific right lobe liver lesion is unchanged, not well- demonstrated. ctasia bordering on aneurysmal dilatation and possible chronic dissection of the distal thoracic aorta, also previously described. JAVIER on CKD On previous admission Sep-Oct 2019 required HD for short period Going to start HD this admission again R/o COVID 01/14 COVID PCR neg 12/29 neg at [facility] per report H/o UTI 10/15 u/a wbc 30-40, nit neg, leuk +3; ucx ESBL P. mirablis, ESBL M. morganii //20 u/a wbc tnct, nit neg, leuk +3; ucx >100k MDR P. stuarti (S Ceftriaxone, Meropenem) 8/25 u/a wbc tnct, nit neg, leuk ; ucx >100k VRE 10/15/19 u/a wbc tnct; ucx >100k ESBL P. stuarti (S ertapenem, aztreonam) H/o transudative pleural effusion 11/28 Sp Thora (w: 169, PMN: 2%, L: 49% , LDH: 57, prot 2.5); cx Neg H/o PNA 10/15/19 Resp cx ESBL P. mirabilis, MDR P.a. (S only to Gent) 09/22 Resp cx + MDR PsA (S-gent; I-colistin; R-levofloxacin, Zosyn, angelo) 09/16/19 Sp cx ESBL P. mirablis H/o PPM site (pocket) infection and pocket abscess 2ry to S. epi-11/2018, sp >6weeks IV vancomycin 11/27 SP ABBIE: no evidence for vegetation on any of the valves 11/26/18 SP PPM removal: OR findings:The fibrous capsule enclosing the generator was then opened and there was a cesjl-ep-jpssrttu amount of yellowish fluid drainage. The generator was then removed.Atrial and ventricular leads were detached. The necrotic tissue of the pocket was then removed and the pocket was flushed with an antibiotic solution. Capsule, wound tissue and lead tip cx: Neg 2d echo: no vegetation seen US chest: 4.6 x 3.4 x 0.9 cm hypoechoic/anechoic area overlying left chest pacemaker power pack. This could represent either a discrete fluid collection or a focal area of very edematous tissue. Infected fluid pocket also possible. 11/18 Bcx 3/ S. epi; 11/20 Bcx neg; 11/24 Bcx Neg; 11/27 Bcx Neg CAD s/p CABG GERD/gastritis Afib HTN Dysphagia sp GT Aortic dissection s/p repair 2017 S/p PPM Parkinson's Disease Schizophrenia Anxiety COPD Chronic resp failure s/p trach Hx of tracheal bleeding [place] resident ([facility]) VRE and MRSA colonized Plan: Monitor off abx as she is stable 03/21 SP daptomycin #12, Avycaz #16 for VRE and MDR Kleb bacteremia 03/16 SP tobramycin IV #10 for resistant UTI 03/10/20 SP edson #4 empiric, vanco #9 01/31 SP angelo/inh tobra #10 for pna 01/23 SP vanco IV #10 given CONS/GPC bacteremia 01/16 SP Zosyn #2 01/14 SP dex 10mg in ED 12/10 SP IV Gentamycin #10 12/07 SP Meropenem #10 12/01 SP IV Vancomycin #5 11/28 Sp Cefepime #2 and IV Gentamycin x1 Monitor CBC/CMP Monitor temp curve, hemodynamics Monitor resp status D/w RN Thank you for this consult. [facility] will continue to follow. Subjective Allergies: Coded Allergies: No Known Allergies (Unverified , 10/10/17) Afebrile No Leukocytosis VALENTIN Objective Last 24 Hour Vital Signs Date Time Temp Pulse Resp B/P (MAP) Pulse Ox O2 Delivery O2 Flow Rate FiO2 04/10/20 05:30 66 15 30 04/10/20 05:24 138/59 04/10/20 04:00 30 04/10/20 04:00 97.2 83 15 145/73 (97) 98 04/10/20 04:00 Mechanical Ventilator 04/10/20 04:00 69 04/10/20 03:40 145/73 04/10/20 03:38 72 14 30 04/10/20 00:55 70 14 30 04/10/20 00:00 30 04/10/20 00:00 69 04/10/20 00:00 97.5 67 16 139/73 (95) 97 04/10/20 00:00 Mechanical Ventilator 04/09/20 23:20 139/60 04/09/20 23:00 82 15 30 04/09/20 21:36 84 24 30 04/09/20 20:00 98.2 72 15 159/65 (96) 95 04/09/20 20:00 30 04/09/20 20:00 Mechanical Ventilator 04/09/20 20:00 72 04/09/20 19:50 159/72 04/09/20 19:03 77 15 30 04/09/20 17:59 159/72 04/09/20 16:00 Mechanical Ventilator 04/09/20 16:00 30 04/09/20 16:00 98.4 73 20 159/72 (101) 96 04/09/20 16:00 73 04/09/20 15:24 78 18 30 04/09/20 14:02 150/70 04/09/20 12:00 Mechanical Ventilator 04/09/20 12:00 68 04/09/20 12:00 30 04/09/20 11:27 98.2 60 20 135/66 (89) 96 04/09/20 11:26 60 14 30 04/09/20 08:00 53 04/09/20 08:00 98.1 74 21 136/85 (102) 98 04/09/20 08:00 Mechanical Ventilator 04/09/20 08:00 30 Height (Feet): 5 Height (Inches): 3.00 Weight (Pounds): 128 Gen: NAD on Vent satting well HEENT: NCAT, trach Pulm: BL chest rise on vent Abd: Soft, ND, +PEG Skin: No visible rashes Neuro: Awake, minimally interactive Lines: R chest Permacath dressing c/d/i Laboratory Tests Test 04/09/20 17:17 04/10/20 03:00 04/10/20 05:24 POC Whole Blood Glucose 102 MG/DL (74-106) 97 MG/DL (74-106) White Blood Count 9.5 K/UL (4.8-10.8) Red Blood Count 2.58 M/UL (4.20-5.40) L Hemoglobin 8.0 G/DL (12.0-16.0) L Hematocrit 23.6 % (37.0-47.0) L Mean Corpuscular Volume 92 FL (80-99) Mean Corpuscular Hemoglobin 31.1 PG (27.0-31.0) H Mean Corpuscular Hemoglobin Concent 34.0 G/DL (32.0-36.0) Red Cell Distribution Width 13.5 % (11.6-14.8) Platelet Count 283 K/UL (150-450) Mean Platelet Volume 6.3 FL (6.5-10.1) L Neutrophils (%) (Auto) 67.1 % (45.0-75.0) Lymphocytes (%) (Auto) 22.0 % (20.0-45.0) Monocytes (%) (Auto) 6.4 % (1.0-10.0) Eosinophils (%) (Auto) 3.9 % (0.0-3.0) H Basophils (%) (Auto) 0.6 % (0.0-2.0) Current Medications Medications (Trade) Dose Ordered Sig/Penny Route PRN Reason Start Time Stop Time Status Last Admin Dose Admin Amlodipine Besylate (Norvasc) 5 mg DAILY ORAL 04/10/20 09:00 05/10/20 08:59 Aspirin (ASA) 81 mg DAILY GT 03/07/20 09:00 04/21/20 08:59 04/09/20 10:43 Chlorhexidine Gluconate (Ling-Hex 2%) 1 applic DAILY@1999 TOPIC 03/03/20 20:00 06/01/20 19:59 04/09/20 19:50 Dextrose (Dextrose 50%) 25 ml Q30M PRN IV Hypoglycemia 03/15/20 07:30 06/13/20 07:29 04/05/20 09:08 Dextrose (Dextrose 50%) 50 ml Q30M PRN IV Hypoglycemia 03/15/20 07:30 06/13/20 07:29 Famotidine (Pepcid) 20 mg BID GT 04/06/20 18:00 07/05/20 17:59 04/09/20 17:59 Hydralazine HCl (Apresoline) 25 mg Q6H PRN GT For High Blood Pressure 03/02/20 22:00 05/31/20 21:59 04/10/20 03:40 Hydralazine HCl (Apresoline) 50 mg Q6HR GT 04/07/20 00:00 07/06/20 00:00 04/10/20 05:24 Hydrocortisone (Anusol HC) 25 mg Q12HR RECTAL 03/23/20 21:00 06/21/20 08:59 04/09/20 21:22 Hydromorphone HCl (Dilaudid) 0.5 mg Q4H PRN IVP For Pain 04/09/20 22:30 04/16/20 22:29 04/10/20 03:43 Metoclopramide HCl (Reglan) 5 mg EVERY 6 HOURS NG 04/06/20 12:00 05/06/20 11:59 04/10/20 05:24 Sodium Hypochlorite (Dakin's Quarter Strength) 1 applic BEDTIME TOPIC 04/04/20 21:00 05/02/20 08:59 04/09/20 21:22 Sucralfate (Carafate) 1 gm EVERY 6 HOURS GT 03/17/20 18:00 06/09/20 08:59 04/10/20 05:24 Tramadol HCl (Ultram) 50 mg Q6H PRN GT Moderate Pain (Pain Scale 4-6) 04/09/20 22:30 04/16/20 22:29 04/10/20 00:40 Zinc Oxide (Zinc Oxide) 1 applic Q8HR TOPIC 03/25/20 22:00 06/22/20 17:59 04/10/20 05:25 Deni Gilbert MD Apr 10, 2020 07:51
[2020-04-10 08:00] VITALS: BP 147/76
[2020-04-10] MEDS: Aspirin Baby 81mg GT SCH (08:30)
[2020-04-10] MEDS: Hydrocortisone 25mg supp RECTAL SCH ×2 (08:30→20:24)
--- NOTE | 2020-04-10 09:01 | Hematology/Onc Progress Note ---
Assessment/Plan Assessment/Plan # Leukocytosis, now with likely bacteremia, as per ID care --> Cxr: : Large left abiola consolidation/effusion --> wbc 30-->40-->27->30->29-->35->32-->28-->21->10.2-->6.6 --> ABX angelo/vanc-->tobra/edson/vanc-->dapto/ceftazadine->off abx --> smear reviewed --> ID recs are noted # Anemia of chronic disease due to underlying chronic medical issues, multifactorial --> Anemia workup has been reviewed, cw acd --> No evidence of hemolysis is noted, peripheral smear has been reviewed. --> Hgb goal >7. Transfuse prn. --> Epogen required in prior --> Medications have been reviewed --> low threshold for gi evaluation in case has occult + --> hgb 1.9-->5-->7.1-->8.8-->8.1->7.5-> 8.2-->6. 8-->9.2-->8.4->7.7-->7.1-->8.8->8.7-->8.2-->8 --> 1 unit prbc1, 2 units 01/15, 03/02, 03/18, 03/24 --> gi eval as needed # Elevated tumor markers, cea and ca 19.9 --> reviewed prior 01/27/20 cat scan a/p --> no masses noted, hold off further extensive w/u # Thrombocytopenia likely reactive v medication induced --> plt 200-->129->91-->86->100->78-->86-->87-->125->135 --> transfuse as needed --> r/o dic, has been ruled out --> anticoag as needed # Coagulopathy with inr 1.5 --> consider vit k/ffp as needed preprocedure --> labs noted # Aortic dissection as seen on Ct ==> when stable, consider transfer hloc # JAVIER initially >2 --> on ivfs --> per renal is on HD # Elevated d-dimer, likely infection related --> venous duplex prior neg --> in prior neg # Dysphagia s/p peg --> as per gi # Thoracic aortic dissection --> s/p repair early 2017 # Chronic Resp failure -> s/p trach/vent # Psychiatric history on ativan/haldol [facility] # Dvt ppx --> scds The timing of this note does not necessarily reflect the time of the patient was seen. Greatly appreciate consultation. Subjective Constitutional: Denies: no symptoms, chills, fever, malaise, weakness, other Gastrointestinal/Abdominal: Denies: no symptoms, abdomen distended, abdominal pain, black stools, tarry stools, blood in stool, constipated, diarrhea, difficulty swallowing, nausea, poor appetite, poor fluid intake, rectal bleeding, vomiting, other Genitourinary: Denies: no symptoms, burning, discharge, frequency, flank pain, hematuria, incontinence, pain, urgency, other Neurologic/Psychiatric: Denies: no symptoms, anxiety, depressed, emotional problems, headache, numbness, paresthesia, pre-existing deficit, seizure, tingling, tremors, weakness, other Endocrine: Denies: no symptoms, excessive sweating, flushing, intolerance to cold, intolerance to heat, increased hunger, increased thirst, increased urine, unexplained weight gain, unexplained weight loss, other Allergies: Coded Allergies: No Known Allergies (Unverified , 10/10/17) Subjective 03/04 nv, for 1 unit transfusion this am as hgb remains low, wbc better 03/05 egd was done did show large nonbleeding gastric ulcer, high tumor markers 03/06 nv, with davis overnight, bp remains stable, with occult + stool, roman Rn 03/09 nv, remains stable, on vanc/tobra/edson, meds reviewed, no bleeding 03/10 nv, on vent, no bleeding, receiving abx, no night sweats 03/11 nv, roman surgeon and pcp, with aortic dissection to transfer [facility] when stable 03/12 nv, labs reviewed, wbc 21, hgb 7.5, otherwise is comfortable 03/13 nv, labs noted, no bleeding, wbc 13, hgb improved, meds reviewed 03/15 nv, meds reviewed, labs noted, no bleeding, on vent 03/16 nv/tv, peg, meds noted, hgb remains stable, improved to 10 2/ s/p egd, with gastric ulceration noted, hgb stable 03/18 labs noted, hgb 6.8, to get 1 unit prbc, meds reviewed 03/19 hgb 9.2, plt 78, no hemoptysis, is comfortable 03/20 labs reviewed, meds noted, no bleeding, roman rn 03/22 wound treatment, vent, with gtube, labs reviewed, roman rn 03/23 labs reviewed, meds noted, no bleeding, with gt 03/24 large bm overnight that was bloody, hgb 7.1, roman rn 03/25 labs pending this am, comfortable, nsr, meds noted 03/26 nv, vent, with gt, labs reviewed, hgb 8.8 03/27 nv, vent, labs reviewed, with gt, hgb stable 03/29 nv, vent, labs pending, meds reviewed, no bleeding 03/30 nv, t/v, with gt feeds, labs reviewed, meds noted 03/31 nv, t/v, oral secretions were suctioned, meds reviewed 04/01 nv, t/v, labs are reviewed, meds noted, hgb 7.4 04/02 gt leaking, facial grimacing, labs noted, no bleeding, roman rn 04/03 nv, labs noted, no bleeding, roman rn, h/h stable 04/04 nv, labs reviewed, gtube replacement as per Dr. Mccauley 04/05 nv, labs reviewed, meds noted no bleeding, roman rn 04/06 nv, labs, meds noted, no bleeding, on vt, no new changes 04/07 nv, meds reviewed, labs noted, no bleeding, bp was high on, transferred to icu 04/08 nv, labs noted, no bleeding, evaluated at the bedside 04/09 nv, labs noted, no bleeding, hgb 7.6, repeat pending 04/10 nv is on gt feeds, labs reviewed, hgb better Objective Objective Current Medications Medications (Trade) Dose Ordered Sig/Penny Route PRN Reason Start Time Stop Time Status Last Admin Dose Admin Amlodipine Besylate (Norvasc) 5 mg DAILY ORAL 04/10/20 09:00 05/10/20 08:59 04/10/20 08:30 Aspirin (ASA) 81 mg DAILY GT 03/07/20 09:00 04/21/20 08:59 04/10/20 08:30 Chlorhexidine Gluconate (Ling-Hex 2%) 1 applic DAILY@1999 TOPIC 03/03/20 20:00 06/01/20 19:59 04/09/20 19:50 Dextrose (Dextrose 50%) 25 ml Q30M PRN IV Hypoglycemia 03/15/20 07:30 06/13/20 07:29 04/05/20 09:08 Dextrose (Dextrose 50%) 50 ml Q30M PRN IV Hypoglycemia 03/15/20 07:30 06/13/20 07:29 Famotidine (Pepcid) 20 mg BID GT 04/06/20 18:00 07/05/20 17:59 04/10/20 08:31 Hydralazine HCl (Apresoline) 25 mg Q6H PRN GT For High Blood Pressure 03/02/20 22:00 05/31/20 21:59 04/10/20 03:40 Hydralazine HCl (Apresoline) 50 mg Q6HR GT 04/07/20 00:00 07/06/20 00:00 04/10/20 05:24 Hydrocortisone (Anusol HC) 25 mg Q12HR RECTAL 03/23/20 21:00 06/21/20 08:59 04/10/20 08:30 Hydromorphone HCl (Dilaudid) 0.5 mg Q4H PRN IVP For Pain 04/09/20 22:30 04/16/20 22:29 04/10/20 03:43 Metoclopramide HCl (Reglan) 5 mg EVERY 6 HOURS NG 04/06/20 12:00 05/06/20 11:59 04/10/20 05:24 Sodium Hypochlorite (Dakin's Quarter Strength) 1 applic BEDTIME TOPIC 04/04/20 21:00 05/02/20 08:59 04/09/20 21:22 Sucralfate (Carafate) 1 gm EVERY 6 HOURS GT 03/17/20 18:00 06/09/20 08:59 04/10/20 05:24 Tramadol HCl (Ultram) 50 mg Q6H PRN GT Moderate Pain (Pain Scale 4-6) 04/09/20 22:30 04/16/20 22:29 04/10/20 08:39 Zinc Oxide (Zinc Oxide) 1 applic Q8HR TOPIC 03/25/20 22:00 06/22/20 17:59 04/10/20 05:25 Last 24 Hour Vital Signs Date Time Temp Pulse Resp B/P (MAP) Pulse Ox O2 Delivery O2 Flow Rate FiO2 04/10/20 08:30 62 147/76 04/10/20 07:03 60 14 30 04/10/20 05:30 66 15 30 04/10/20 05:24 138/59 04/10/20 04:00 30 04/10/20 04:00 97.2 83 15 145/73 (97) 98 04/10/20 04:00 Mechanical Ventilator 04/10/20 04:00 69 04/10/20 03:40 145/73 04/10/20 03:38 72 14 30 04/10/20 00:55 70 14 30 04/10/20 00:00 30 04/10/20 00:00 69 04/10/20 00:00 97.5 67 16 139/73 (95) 97 04/10/20 00:00 Mechanical Ventilator 04/09/20 23:20 139/60 04/09/20 23:00 82 15 30 04/09/20 21:36 84 24 30 04/09/20 20:00 98.2 72 15 159/65 (96) 95 04/09/20 20:00 30 04/09/20 20:00 Mechanical Ventilator 04/09/20 20:00 72 04/09/20 19:50 159/72 04/09/20 19:03 77 15 30 04/09/20 17:59 159/72 04/09/20 16:00 Mechanical Ventilator 04/09/20 16:00 30 04/09/20 16:00 98.4 73 20 159/72 (101) 96 04/09/20 16:00 73 04/09/20 15:24 78 18 30 04/09/20 14:02 150/70 04/09/20 12:00 Mechanical Ventilator 04/09/20 12:00 68 04/09/20 12:00 30 04/09/20 11:27 98.2 60 20 135/66 (89) 96 04/09/20 11:26 60 14 30 04/09/20 08:00 53 04/09/20 08:00 98.1 74 21 136/85 (102) 98 04/09/20 08:00 Mechanical Ventilator 04/09/20 08:00 30 04/09/20 07:39 57 14 30 04/09/20 06:21 139/94 04/09/20 04:46 52 15 30 04/09/20 04:00 98.1 59 15 139/58 (85) 97 04/09/20 04:00 Mechanical Ventilator 04/09/20 04:00 30 04/09/20 04:00 58 04/09/20 03:23 54 15 30 04/09/20 01:06 60 14 30 04/09/20 00:38 134/96 04/09/20 00:00 Mechanical Ventilator 04/09/20 00:00 98.1 61 21 134/96 (109) 97 04/08/20 22:52 64 14 30 04/08/20 21:07 78 20 30 04/08/20 20:00 30 04/08/20 20:00 98.1 78 20 180/83 (115) 96 04/08/20 20:00 66 04/08/20 20:00 Mechanical Ventilator 04/08/20 19:06 62 15 30 04/08/20 18:00 153/73 04/08/20 16:30 97.5 04/08/20 16:00 30 04/08/20 16:00 Mechanical Ventilator 04/08/20 16:00 81 04/08/20 16:00 97.5 75 15 166/66 (99) 98 04/08/20 15:05 66 18 30 04/08/20 12:00 97.7 75 15 153/73 (99) 98 04/08/20 12:00 Mechanical Ventilator 04/08/20 12:00 153/73 04/08/20 12:00 30 04/08/20 12:00 75 04/08/20 10:35 67 16 30 Intake and Output 04/09/20 04/10/20 19:00 07:00 Intake Total 640 ml 490 ml Output Total 0 ml Balance 640 ml 490 ml Intake Free Water 160 ml 50 ml Tube Feeding 480 ml 440 ml Output Urine Total 0 ml Stool Total 0 ml # Voids 1 Labs Test 04/07/20 14:00 04/07/20 19:12 04/07/20 23:31 04/08/20 05:04 POC Whole Blood Glucose 94 MG/DL (74-106) 98 MG/DL (74-106) 106 MG/DL (74-106) 95 MG/DL (74-106) Test 04/08/20 12:40 04/08/20 19:04 04/09/20 02:50 04/09/20 03:31 POC Whole Blood Glucose 113 MG/DL (74-106) 93 MG/DL (74-106) White Blood Count 6.5 K/UL (4.8-10.8) Red Blood Count 2.48 M/UL (4.20-5.40) Hemoglobin 7.6 G/DL (12.0-16.0) Hematocrit 22.6 % (37.0-47.0) Mean Corpuscular Volume 91 FL (80-99) Mean Corpuscular Hemoglobin 30.6 PG (27.0-31.0) Mean Corpuscular Hemoglobin Concent 33.6 G/DL (32.0-36.0) Red Cell Distribution Width 13.4 % (11.6-14.8) Platelet Count 241 K/UL (150-450) Mean Platelet Volume 5.9 FL (6.5-10.1) Neutrophils (%) (Auto) % (45.0-75.0) Lymphocytes (%) (Auto) % (20.0-45.0) Monocytes (%) (Auto) % (1.0-10.0) Eosinophils (%) (Auto) % (0.0-3.0) Basophils (%) (Auto) % (0.0-2.0) Sodium Level 140 MMOL/L (136-145) Potassium Level 3.4 MMOL/L (3.5-5.1) Chloride Level 101 MMOL/L (98-107) Carbon Dioxide Level 27 MMOL/L (21-32) Anion Gap 12 mmol/L (5-15) Blood Urea Nitrogen 95 mg/dL (7-18) Creatinine 2.5 MG/DL (0.55-1.30) Estimat Glomerular Filtration Rate 20.6 mL/min (>60) Glucose Level 98 MG/DL (74-106) Calcium Level 8.3 MG/DL (8.5-10.1) Phosphorus Level 2.7 MG/DL (2.5-4.9) Magnesium Level 2.4 MG/DL (1.8-2.4) Total Bilirubin 0.5 MG/DL (0.2-1.0) Aspartate Amino Transf (AST/SGOT) 33 U/L (15-37) Alanine Aminotransferase (ALT/SGPT) 17 U/L (12-78) Alkaline Phosphatase 134 U/L (46-116) C-Reactive Protein, Quantitative 9.2 mg/dL (0.00-0.90) Pro-B-Type Natriuretic Peptide > 37841 pg/mL (0-125) Total Protein 5.6 G/DL (6.4-8.2) Albumin 1.3 G/DL (3.4-5.0) Globulin 4.3 g/dL Albumin/Globulin Ratio 0.3 (1.0-2.7) Test 04/09/20 06:10 04/09/20 17:17 04/10/20 03:00 04/10/20 05:24 POC Whole Blood Glucose 109 MG/DL (74-106) 102 MG/DL (74-106) 97 MG/DL (74-106) White Blood Count 9.5 K/UL (4.8-10.8) Red Blood Count 2.58 M/UL (4.20-5.40) Hemoglobin 8.0 G/DL (12.0-16.0) Hematocrit 23.6 % (37.0-47.0) Mean Corpuscular Volume 92 FL (80-99) Mean Corpuscular Hemoglobin 31.1 PG (27.0-31.0) Mean Corpuscular Hemoglobin Concent 34.0 G/DL (32.0-36.0) Red Cell Distribution Width 13.5 % (11.6-14.8) Platelet Count 283 K/UL (150-450) Mean Platelet Volume 6.3 FL (6.5-10.1) Neutrophils (%) (Auto) 67.1 % (45.0-75.0) Lymphocytes (%) (Auto) 22.0 % (20.0-45.0) Monocytes (%) (Auto) 6.4 % (1.0-10.0) Eosinophils (%) (Auto) 3.9 % (0.0-3.0) Basophils (%) (Auto) 0.6 % (0.0-2.0) Height (Feet): 5 Height (Inches): 3.00 Weight (Pounds): 128 Objective Physical Exam: Vitals: reviewed General: NAD HEENT: nc, at Neck: supple ++trach/vent Chest: clear breath sounds bilaterally Cardiovascular: RRR, no s3, s4 Abdomen: soft, nontender, nd +gtube Extremities: no cce, normal range of motion Neuro: alert Evan Muhammad MD Apr 10, 2020 09:01
--- NOTE | 2020-04-10 10:20 | Pulmonology Progress Note ---
Subjective ROS Limited/Unobtainable: Yes Interval Events: none major reported per nursing HEENT: Repors: no symptoms Respiratory: Reports: no symptoms Cardiovascular: Reports: no symptoms Gastrointestinal/Abdominal: Reports: diarrhea Allergies: Coded Allergies: No Known Allergies (Unverified , 10/10/17) All Systems: reviewed and negative except above Objective Last 24 Hour Vital Signs Date Time Temp Pulse Resp B/P (MAP) Pulse Ox O2 Delivery O2 Flow Rate FiO2 04/10/20 08:30 62 147/76 04/10/20 07:03 60 14 30 04/10/20 05:30 66 15 30 04/10/20 05:24 138/59 04/10/20 04:00 30 04/10/20 04:00 97.2 83 15 145/73 (97) 98 04/10/20 04:00 Mechanical Ventilator 04/10/20 04:00 69 04/10/20 03:40 145/73 04/10/20 03:38 72 14 30 04/10/20 00:55 70 14 30 04/10/20 00:00 30 04/10/20 00:00 69 04/10/20 00:00 97.5 67 16 139/73 (95) 97 04/10/20 00:00 Mechanical Ventilator 04/09/20 23:20 139/60 04/09/20 23:00 82 15 30 04/09/20 21:36 84 24 30 04/09/20 20:00 98.2 72 15 159/65 (96) 95 04/09/20 20:00 30 04/09/20 20:00 Mechanical Ventilator 04/09/20 20:00 72 04/09/20 19:50 159/72 04/09/20 19:03 77 15 30 04/09/20 17:59 159/72 04/09/20 16:00 Mechanical Ventilator 04/09/20 16:00 30 04/09/20 16:00 98.4 73 20 159/72 (101) 96 04/09/20 16:00 73 04/09/20 15:24 78 18 30 04/09/20 14:02 150/70 04/09/20 12:00 Mechanical Ventilator 04/09/20 12:00 68 04/09/20 12:00 30 04/09/20 11:27 98.2 60 20 135/66 (89) 96 04/09/20 11:26 60 14 30 Intake and Output 04/09/20 04/10/20 19:00 07:00 Intake Total 640 ml 490 ml Output Total 0 ml Balance 640 ml 490 ml Intake Free Water 160 ml 50 ml Tube Feeding 480 ml 440 ml Output Urine Total 0 ml Stool Total 0 ml # Voids 1 General Appearance: no acute distress HEENT: atraumatic, status post trach Respiratory: lungs clear Cardiovascular: normal rate, regular rhythm Extremities: other - edema bilateral Laboratory Tests 04/09/20 17:17: POC Whole Blood Glucose 102 04/10/20 03:00: White Blood Count 9.5, Red Blood Count 2.58L, Hemoglobin 8.0L, Hematocrit 23.6L, Mean Corpuscular Volume 92, Mean Corpuscular Hemoglobin 31.1H, Mean Corpuscular Hemoglobin Concent 34.0, Red Cell Distribution Width 13.5, Platelet Count 283, Mean Platelet Volume 6.3L, Neutrophils (%) (Auto) 67.1, Lymphocytes (%) (Auto) 22.0, Monocytes (%) (Auto) 6.4, Eosinophils (%) (Auto) 3.9H, Basophils (%) (Auto) 0.6 04/10/20 05:24: POC Whole Blood Glucose 97 Current Medications Medications (Trade) Dose Ordered Sig/Penny Route PRN Reason Start Time Stop Time Status Last Admin Dose Admin Amlodipine Besylate (Norvasc) 5 mg DAILY ORAL 04/10/20 09:00 05/10/20 08:59 04/10/20 08:30 Aspirin (ASA) 81 mg DAILY GT 03/07/20 09:00 04/21/20 08:59 04/10/20 08:30 Chlorhexidine Gluconate (Ling-Hex 2%) 1 applic DAILY@1999 TOPIC 03/03/20 20:00 06/01/20 19:59 04/09/20 19:50 Dextrose (Dextrose 50%) 25 ml Q30M PRN IV Hypoglycemia 03/15/20 07:30 06/13/20 07:29 04/05/20 09:08 Dextrose (Dextrose 50%) 50 ml Q30M PRN IV Hypoglycemia 03/15/20 07:30 06/13/20 07:29 Famotidine (Pepcid) 20 mg BID GT 04/06/20 18:00 07/05/20 17:59 04/10/20 08:31 Hydralazine HCl (Apresoline) 25 mg Q6H PRN GT For High Blood Pressure 03/02/20 22:00 05/31/20 21:59 04/10/20 03:40 Hydralazine HCl (Apresoline) 50 mg Q6HR GT 04/07/20 00:00 07/06/20 00:00 04/10/20 05:24 Hydrocortisone (Anusol HC) 25 mg Q12HR RECTAL 03/23/20 21:00 06/21/20 08:59 04/10/20 08:30 Hydromorphone HCl (Dilaudid) 0.5 mg Q4H PRN IVP For Pain 04/09/20 22:30 04/16/20 22:29 04/10/20 03:43 Metoclopramide HCl (Reglan) 5 mg EVERY 6 HOURS NG 04/06/20 12:00 05/06/20 11:59 04/10/20 05:24 Sodium Hypochlorite (Dakin's Quarter Strength) 1 applic BEDTIME TOPIC 04/04/20 21:00 05/02/20 08:59 04/09/20 21:22 Sucralfate (Carafate) 1 gm EVERY 6 HOURS GT 03/17/20 18:00 06/09/20 08:59 04/10/20 05:24 Tramadol HCl (Ultram) 50 mg Q6H PRN GT Moderate Pain (Pain Scale 4-6) 04/09/20 22:30 04/16/20 22:29 04/10/20 08:39 Zinc Oxide (Zinc Oxide) 1 applic Q8HR TOPIC 03/25/20 22:00 06/22/20 17:59 04/10/20 05:25 Assessment/Plan Assessment/Plan 1. Chronic respiratory failure. - CT chest/abd/pelv: improving pleural effusion 2. Mechanical ventilation. - remains on 30% FiO2 saturating well - suction secretions as needed 3. Chronic tracheostomy. 4. Chronic G-tube. 5. Anemia. - s/p transfusion - stool OB positive (03/02, 03/03, 03/22) - off anticoags 6. Renal failure. 7. Leukocytosis and sepsis. - WBC now wnl 8. Sepsis UTI 9. Gram positive cocci bacteremia - f/u BCx negative for growth 10. COVID-19 negative 11. Diarrhea - C. diff neg 12. Hypoglycemia - resolved 13. Bradycardia - no urgent indication for pacemaker per cardio 14. Gastric ulcer - on PPI -No active bleeding - GI following 15. Pleural effusion - small; insufficient volume for safe thoracentesis - on HD 16. thoracic aortic aneurysm - noted on CT imaging - pt needs emergent transfer out to [facility] for CT surgery evaluation, primary MD aware - Pt might not be a candidate for TAA repair 17. Ascites - s/p paracentesis (2/3), 2.3L out 18. DVT ppx - on SCD -Venous duplex ultrasound of legs negative for DVT (03/25) Noted discharge planning Medically stable for discharge from pulmonary standpoint The care of this patient was discussed with my supervising physician Time spent for this encounter was approximately 31 minutes Cruz Wilson Apr 10, 2020 10:20
--- NOTE | 2020-04-10 10:34 | Nephrology Progress Note ---
Assessment/Plan Problem List: (1) Renal failure (ARF), acute on chronic (2) Anemia (3) Hyponatremia (4) Respiratory failure Assessment (1) JAVIER (acute kidney injury) (2) Renal failure (ARF), acute on chronic (3) Feeding by G-tube (4) Tracheostomy in place (5) Electrolyte imbalance, hyponatremia (6) Anemia, severe (7) Respiratory failure, acute and chronic (8) history of elevated lipase, pancreatitis (9) Elevated troponin I (10) Sepsis Plan April 10: Labs reviewed. Renal parameters stable. Hemoglobin higher. Hemodialysis as needed. Low potassium addressed. April 09: Dialyzed yesterday. Discussed with RN. Hemoglobin low. Suggest transfusion 1 unit of packed RBCs. April 08: Dialysis today. Blood pressure medication adjusted. Check lab tomorrow. Continue per consultants. April 07: Patient remains full code. Heart rate improved. Medication list reviewed. Labs reviewed. Will order dialysis for tomorrow. Continue per consultants. April 06: Full code. Intubated via trach on ventilator. FiO2 30%. Blood sugar stable. D50 will be discontinued. Continue feeding. Dialysis as needed. April 05: Remains in ICU. Low heart rate persists. Will initiate low-dose hydralazine with blood pressure parameters. Last dialysis April 03. Blood sugar stable on 30 mL of D10 hourly. GT feeding started. Continue to monitor electrolytes renal parameters and arrange for dialysis as needed. April 04: Patient currently in ICU due to low heart rate. Blood pressure is stable. Dialyzed yesterday. Labs reviewed. Renal parameters and electrolytes stable. Medication list reviewed. Continue per cardiology with regard to bradycardia. April 03: Labs reviewed. We will order dialysis today. Continue per consultants. April 02: Labs reviewed. No need for dialysis today. Continue to monitor renal parameters. April 01: Labs reviewed. Renal parameters stable. No dialysis today. Continue per consultants. March 31: No labs drawn today. Renal parameters stable as of yesterday. Will check lab tomorrow. Dialysis as needed. March 30: Labs reviewed. Low phosphorus addressed. Continue per PMD and consultants. Dialysis as needed. March 29: Dialyzed yesterday. No CHEM panel drawn today. We will continue to monitor renal parameters. Continue per consultants. March 28: Due for dialysis today. Labs reviewed. Stable from renal standpoint of view. March 27: Due for dialysis tomorrow. Labs reviewed. Medication list reviewed. Continue per current management. March 26: Last dialyzed March 24. Labs reviewed. Low phosphorus replaced. Continue to monitor renal parameters. Dialysis as needed. March 25: Dialyzed yesterday. Labs reviewed. Low phosphorus replaced. Continue per current management. Hemoglobin higher. March 24: Labs reviewed. Due for dialysis today. Continue per current management. Hemoglobin lower. Transfusion per photographic plate maker. March 23: Labs reviewed. Dialyzed yesterday. Next dialysis tomorrow. Anemia management per photographic plate maker. March 22: Labs reviewed. Due for dialysis today. Discussed with RN. Agree with discontinuation of the Norman catheter. Hemoglobin lower. Transfusion per photographic plate maker. March 21: Labs reviewed. Will arrange for dialysis tomorrow. Continue per consultants. Will hold phosphorus binders at this time. March 20: Labs reviewed. Patient was dialyzed yesterday. Electrolyte abnormalities corrected. Continue per current management. March 19: Due for dialysis today. Abnormal labs noted. All will be corrected after dialysis. March 18: Labs reviewed. Will dialyze tomorrow. Patient being transfused today. Patient due for abdominal paracentesis. We will keep the Norman in. Continue to monitor renal parameters and dialyze as needed. March 17: No CHEM panel done today. CBC reviewed. Hemoglobin is lowering. Dialyzed yesterday. Will check lab tomorrow. Continue per consultants. March 16: Labs reviewed. Due for dialysis today. Hemoglobin 10.2 today. Continue to monitor renal parameters. March 15: Labs reviewed. Dialyzed March 13. Due for dialysis March 16. Hemoglobin lower. 1 unit of packed RBCs ordered. Per orders. March 14: No labs drawn today. Dialyzed yesterday. Full code. Will check lab tomorrow. Dialysis as needed. March 13: Labs reviewed. Due for dialysis today. Patient remains full code. Continue per current management. March 12: Labs reviewed. Dialyzed yesterday. Due for dialysis tomorrow. Discussed with RN. Patient full code. Continue per current management. March 11: Labs reviewed. Dialyzed this morning. Phosphorus binders dose adjusted. Continue per consultants. Continue to monitor renal parameters. CT: Extensive thoracoabdominal aortic dissection March 10: Labs reviewed. Will order dialysis tomorrow. Phosphorus binders a dded. Continue per consultants. March 09: No chemistry panel done today. Patient dialyzed yesterday. On dextrose 10% for hypoglycemia. We will check labs tomorrow. Dialysis as needed. March 08: Labs reviewed. Will order dialysis today. Blood sugar low. D10 50 cc an hour started. Continue as is. March 07: Labs reviewed. Dialyzed March 05 and March 06. Continue to monitor renal parameters and hemoglobin. Abnormal electrolytes addressed. IV fluids stopped. Per orders. March 06: Labs reviewed. Dialyzed yesterday. Will reorder dialysis for today. Continue to monitor renal parameters. Hemoglobin 8.4. Patient full code. March 05: Labs reviewed. Patient did not receive dialysis until this morning. Proceed with dialysis. Continue to monitor renal parameters and hemoglobin and hematocrit. March 04: Labs reviewed. Hemoglobin lower. Patient actively bleeding. Was not dialyzed yesterday. Due for GI endoscopy. Continue fluid challenge. Transfusion as needed. Dialysis today. March 03: Labs reviewed. Dialysis ordered. Blood pressure medication all discontinued due to hypotensive state. Albumin bolus given. Continue to monitor renal parameters. Medication list reviewed. Midodrin for low blood pressure ordered Subjective ROS Limited/Unobtainable: Yes Objective Objective Last 24 Hour Vital Signs Date Time Temp Pulse Resp B/P (MAP) Pulse Ox O2 Delivery O2 Flow Rate FiO2 04/10/20 08:30 62 147/76 04/10/20 07:03 60 14 30 04/10/20 05:30 66 15 30 04/10/20 05:24 138/59 04/10/20 04:00 30 04/10/20 04:00 97.2 83 15 145/73 (97) 98 04/10/20 04:00 Mechanical Ventilator 04/10/20 04:00 69 04/10/20 03:40 145/73 04/10/20 03:38 72 14 30 04/10/20 00:55 70 14 30 04/10/20 00:00 30 04/10/20 00:00 69 04/10/20 00:00 97.5 67 16 139/73 (95) 97 04/10/20 00:00 Mechanical Ventilator 04/09/20 23:20 139/60 04/09/20 23:00 82 15 30 04/09/20 21:36 84 24 30 04/09/20 20:00 98.2 72 15 159/65 (96) 95 04/09/20 20:00 30 04/09/20 20:00 Mechanical Ventilator 04/09/20 20:00 72 04/09/20 19:50 159/72 04/09/20 19:03 77 15 30 04/09/20 17:59 159/72 04/09/20 16:00 Mechanical Ventilator 04/09/20 16:00 30 04/09/20 16:00 98.4 73 20 159/72 (101) 96 04/09/20 16:00 73 04/09/20 15:24 78 18 30 04/09/20 14:02 150/70 04/09/20 12:00 Mechanical Ventilator 04/09/20 12:00 68 04/09/20 12:00 30 04/09/20 11:27 98.2 60 20 135/66 (89) 96 04/09/20 11:26 60 14 30 Intake and Output 04/09/20 04/10/20 19:00 07:00 Intake Total 640 ml 490 ml Output Total 0 ml Balance 640 ml 490 ml Intake Free Water 160 ml 50 ml Tube Feeding 480 ml 440 ml Output Urine Total 0 ml Stool Total 0 ml # Voids 1 Current Medications Medications (Trade) Dose Ordered Sig/Penny Route PRN Reason Start Time Stop Time Status Last Admin Dose Admin Amlodipine Besylate (Norvasc) 5 mg DAILY ORAL 04/10/20 09:00 05/10/20 08:59 04/10/20 08:30 Aspirin (ASA) 81 mg DAILY GT 03/07/20 09:00 04/21/20 08:59 04/10/20 08:30 Chlorhexidine Gluconate (Ling-Hex 2%) 1 applic DAILY@2000 TOPIC 03/03/20 20:00 06/01/20 19:59 04/09/20 19:50 Dextrose (Dextrose 50%) 25 ml Q30M PRN IV Hypoglycemia 03/15/20 07:30 06/13/20 07:29 04/05/20 09:08 Dextrose (Dextrose 50%) 50 ml Q30M PRN IV Hypoglycemia 03/15/20 07:30 06/13/20 07:29 Famotidine (Pepcid) 20 mg BID GT 04/06/20 18:00 07/05/20 17:59 04/10/20 08:31 Hydralazine HCl (Apresoline) 25 mg Q6H PRN GT For High Blood Pressure 03/02/20 22:00 05/31/20 21:59 04/10/20 03:40 Hydralazine HCl (Apresoline) 50 mg Q6HR GT 04/07/20 00:00 07/06/20 00:00 04/10/20 05:24 Hydrocortisone (Anusol HC) 25 mg Q12HR RECTAL 03/23/20 21:00 06/21/20 08:59 04/10/20 08:30 Hydromorphone HCl (Dilaudid) 0.5 mg Q4H PRN IVP For Pain 04/09/20 22:30 04/16/20 22:29 04/10/20 03:43 Metoclopramide HCl (Reglan) 5 mg EVERY 6 HOURS NG 04/06/20 12:00 05/06/20 11:59 04/10/20 05:24 Sodium Hypochlorite (Dakin's Quarter Strength) 1 applic BEDTIME TOPIC 04/04/20 21:00 05/02/20 08:59 04/09/20 21:22 Sucralfate (Carafate) 1 gm EVERY 6 HOURS GT 03/17/20 18:00 06/09/20 08:59 04/10/20 05:24 Tramadol HCl (Ultram) 50 mg Q6H PRN GT Moderate Pain (Pain Scale 4-6) 04/09/20 22:30 04/16/20 22:29 04/10/20 08:39 Zinc Oxide (Zinc Oxide) 1 applic Q8HR TOPIC 03/25/20 22:00 06/22/20 17:59 04/10/20 05:25 Laboratory Tests 04/09/20 17:17: POC Whole Blood Glucose 102 04/10/20 03:00: White Blood Count 9.5, Red Blood Count 2.58L, Hemoglobin 8.0L, Hematocrit 23.6L, Mean Corpuscular Volume 92, Mean Corpuscular Hemoglobin 31.1H, Mean Corpuscular Hemoglobin Concent 34.0, Red Cell Distribution Width 13.5, Platelet Count 283, Mean Platelet Volume 6.3L, Neutrophils (%) (Auto) 67.1, Lymphocytes (%) (Auto) 22.0, Monocytes (%) (Auto) 6.4, Eosinophils (%) (Auto) 3.9H, Basophils (%) (Auto) 0.6 04/10/20 05:24: POC Whole Blood Glucose 97 Height (Feet): 5 Height (Inches): 3.00 Weight (Pounds): 128 General Appearance: no apparent distress EENT: other - Trach to vent Cardiovascular: normal rate Respiratory/Chest: decreased breath sounds Abdomen: distended Johnny Houston MD Apr 10, 2020 10:34
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
[2020-04-10 12:00] VITALS: BP 139/95
--- NOTE | 2020-04-10 12:13 | General Progress Note ---
Subjective ROS Limited/Unobtainable: No Allergies: Coded Allergies: No Known Allergies (Unverified , 10/10/17) Objective Last 24 Hour Vital Signs Date Time Temp Pulse Resp B/P (MAP) Pulse Ox O2 Delivery O2 Flow Rate FiO2 04/10/20 08:30 62 147/76 04/10/20 07:03 60 14 30 04/10/20 05:30 66 15 30 04/10/20 05:24 138/59 04/10/20 04:00 30 04/10/20 04:00 97.2 83 15 145/73 (97) 98 04/10/20 04:00 Mechanical Ventilator 04/10/20 04:00 69 04/10/20 03:40 145/73 04/10/20 03:38 72 14 30 04/10/20 00:55 70 14 30 04/10/20 00:00 30 04/10/20 00:00 69 04/10/20 00:00 97.5 67 16 139/73 (95) 97 04/10/20 00:00 Mechanical Ventilator 04/09/20 23:20 139/60 04/09/20 23:00 82 15 30 04/09/20 21:36 84 24 30 04/09/20 20:00 98.2 72 15 159/65 (96) 95 04/09/20 20:00 30 04/09/20 20:00 Mechanical Ventilator 04/09/20 20:00 72 04/09/20 19:50 159/72 04/09/20 19:03 77 15 30 04/09/20 17:59 159/72 04/09/20 16:00 Mechanical Ventilator 04/09/20 16:00 30 04/09/20 16:00 98.4 73 20 159/72 (101) 96 04/09/20 16:00 73 04/09/20 15:24 78 18 30 04/09/20 14:02 150/70 Intake and Output 04/09/20 04/10/20 19:00 07:00 Intake Total 640 ml 490 ml Output Total 0 ml Balance 640 ml 490 ml Intake Free Water 160 ml 50 ml Tube Feeding 480 ml 440 ml Output Urine Total 0 ml Stool Total 0 ml # Voids 1 Laboratory Tests 04/09/20 17:17: POC Whole Blood Glucose 102 04/10/20 03:00: White Blood Count 9.5, Red Blood Count 2.58L, Hemoglobin 8.0L, Hematocrit 23.6L, Mean Corpuscular Volume 92, Mean Corpuscular Hemoglobin 31.1H, Mean Corpuscular Hemoglobin Concent 34.0, Red Cell Distribution Width 13.5, Platelet Count 283, Mean Platelet Volume 6.3L, Neutrophils (%) (Auto) 67.1, Lymphocytes (%) (Auto) 22.0, Monocytes (%) (Auto) 6.4, Eosinophils (%) (Auto) 3.9H, Basophils (%) (Auto) 0.6 04/10/20 05:24: POC Whole Blood Glucose 97 Height (Feet): 5 Height (Inches): 3.00 Weight (Pounds): 128 General Appearance: no apparent distress EENT: normal ENT inspection Cardiovascular: normal rate Respiratory/Chest: decreased breath sounds Abdomen: hypoactive bowel sounds Extremities: non-tender Assessment/Plan Problem List: (1) Hx of CABG ICD Codes: Z95.1 - Presence of aortocoronary bypass graft SNOMED: 929009220, 691313433 (2) History of tracheostomy ICD Codes: Z98.890 - Other specified postprocedural states SNOMED: 561645776, 481987304 (3) PEG (percutaneous endoscopic gastrostomy) status ICD Codes: Z93.1 - Gastrostomy status SNOMED: 127386436, 914220426 (4) Renal failure ICD Codes: N19 - Unspecified kidney failure SNOMED: 33636277, 778222190 (5) Severe anemia ICD Codes: D64.9 - Anemia, unspecified SNOMED: 863754758 Assessment/Plan: s/p EGD gastric ulcer on ppi and carafate fu H&H GTF fu labs supportive care Inder Mccauley MD Apr 10, 2020 12:13
--- NOTE | 2020-04-10 13:01 | NUR ---
INSURANCE CLINICALS FAXED TO [facility] T: [phone] F: [phone]
[2020-04-10 16:00] VITALS: BP 138/60
--- NOTE | 2020-04-10 18:00 | NUR ---
NURSE NOTES: G tube dressing changed-with small blood clot from G tube site,cleaned,applied cream ordered dressing change,head elevated,aspiration precaution,frequent suction orally frothy sputum ,tracheostomy suctioned trach care done,dressing changed
--- NOTE | 2020-04-10 18:27 | General Progress Note ---
Subjective Constitutional: Reports: no symptoms HEENT: Reports: no symptoms Cardiovascular: Reports: no symptoms Respiratory: Reports: no symptoms Gastrointestinal/Abdominal: Reports: no symptoms Genitourinary: Reports: no symptoms Neurologic/Psychiatric: Reports: no symptoms Endocrine: Reports: no symptoms Hematologic/Lymphatic: Reports: no symptoms Allergies: Coded Allergies: No Known Allergies (Unverified , 10/10/17) Objective Last 24 Hour Vital Signs Date Time Temp Pulse Resp B/P (MAP) Pulse Ox O2 Delivery O2 Flow Rate FiO2 04/10/20 18:22 138/60 04/10/20 16:00 67 04/10/20 16:00 97.9 73 20 138/60 (86) 94 04/10/20 16:00 30 04/10/20 16:00 Mechanical Ventilator 04/10/20 15:28 69 15 30 04/10/20 13:05 139/95 04/10/20 12:00 Mechanical Ventilator 04/10/20 12:00 30 04/10/20 12:00 97.5 66 18 139/95 (110) 94 04/10/20 11:59 67 04/10/20 11:00 64 14 30 04/10/20 08:30 62 147/76 04/10/20 08:00 30 04/10/20 08:00 Mechanical Ventilator 04/10/20 08:00 97.3 70 20 147/76 (99) 99 04/10/20 07:55 63 04/10/20 07:03 60 14 30 04/10/20 05:30 66 15 30 04/10/20 05:24 138/59 04/10/20 04:00 30 04/10/20 04:00 97.2 83 15 145/73 (97) 98 04/10/20 04:00 Mechanical Ventilator 04/10/20 04:00 69 04/10/20 03:40 145/73 04/10/20 03:38 72 14 30 04/10/20 00:55 70 14 30 04/10/20 00:00 30 04/10/20 00:00 69 04/10/20 00:00 97.5 67 16 139/73 (95) 97 04/10/20 00:00 Mechanical Ventilator 04/09/20 23:20 139/60 04/09/20 23:00 82 15 30 04/09/20 21:36 84 24 30 04/09/20 20:00 98.2 72 15 159/65 (96) 95 04/09/20 20:00 30 04/09/20 20:00 Mechanical Ventilator 04/09/20 20:00 72 04/09/20 19:50 159/72 04/09/20 19:03 77 15 30 Intake and Output 04/09/20 04/10/20 19:00 07:00 Intake Total 640 ml 530 ml Output Total 0 ml Balance 640 ml 530 ml Intake Free Water 160 ml 50 ml Tube Feeding 480 ml 480 ml Output Urine Total 0 ml Stool Total 0 ml # Voids 1 Laboratory Tests 04/10/20 03:00: White Blood Count 9.5, Red Blood Count 2.58L, Hemoglobin 8.0L, Hematocrit 23.6L, Mean Corpuscular Volume 92, Mean Corpuscular Hemoglobin 31.1H, Mean Corpuscular Hemoglobin Concent 34.0, Red Cell Distribution Width 13.5, Platelet Count 283, Mean Platelet Volume 6.3L, Neutrophils (%) (Auto) 67.1, Lymphocytes (%) (Auto) 22.0, Monocytes (%) (Auto) 6.4, Eosinophils (%) (Auto) 3.9H, Basophils (%) (Auto) 0.6, Hepatitis B Surface Antigen [Pending], Hepatitis B Surface Antibody, Quant [Pending], Hepatitis C Antibody [Pending] 04/10/20 05:24: POC Whole Blood Glucose 97 Height (Feet): 5 Height (Inches): 3.00 Weight (Pounds): 128 General Appearance: WD/WN, no apparent distress, alert EENT: normal ENT inspection Neck: supple Cardiovascular: normal rate, regular rhythm, no gallop/murmur, no JVD Respiratory/Chest: lungs clear, normal breath sounds, no respiratory distress, no accessory muscle use Abdomen: normal bowel sounds, non tender, soft, no organomegaly, no mass Extremities: non-tender Neurologic: abnormal gait, oriented x 3, responsive Skin: warm/dry Assessment/Plan Status Narrative Patient is awake alert oriented hemodynamically stable she was supposed to be discharged today to [facility] unit however patient review of patient records revealed the patient like need dialysis at least once a week patient never went below 7 days in dialysis at this condition after discussion with the management and [place] she cannot be accepted information from [facility] also revealed the 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 Lucas Vera MD, MD Apr 10, 2020 18:27
--- NOTE | 2020-04-10 19:00 | NUR ---
Safety measures in place, tubes and lines assessed and secured. Patient is not in acute distress, refer to MR for full assessment and trending vitals.
--- NOTE | 2020-04-10 19:30 | NUR ---
NURSE HAND-OFF REPORT: Important Events on Shift: G tube site with blood clot,small Patient Status: Stable Diet: G tube feeding Pending Orders: N Pending Results/Labs:N Pending notification:N Latest Vital Signs: Temperature 97.9 , Pulse 67 , B/P 138 /60 , Respiratory Rate 20 , O2 SAT 94 , Mechanical Ventilator, O2 Flow Rate . Vital Sign Comment: EKG Rhythm: Sinus Rhythm Rhythm change?: N MD Notified?: N -Dr Екатерина HATFIELD Response: Order Received& Read Back Latest [place] Fall Score: 50 Fall Risk: High Risk Safety Measures: Call light Within Reach, Bed Alarm Zone 2, Side Rails Side Rails x3, Bed position Low and Locked. Fall Precautions: Yellow Socks Report given to .ERASMO Beltran
[2020-04-10 20:00] VITALS: BP 142/71
[2020-04-10] MEDS: Dyna-Hex 2% Top Sol 2oz TOPIC SCH (20:24)
[2020-04-10] MEDS: Dakin's 0.125% Soln (Quarter Strength) 16oz TOPIC SCH (22:37)
[2020-04-11] VITALS (7 sets, daily range): BP systolic 144–166; BP diastolic 66–80
[2020-04-11] MEDS: Metoclopramide 10mg/10ml Liq NG SCH ×4 (00:44→17:32)
[2020-04-11] MEDS: Sucralfate 1gm tab GT SCH ×4 (00:45→17:32)
[2020-04-11] MEDS: HydrALAZINE 50mg tab GT SCH ×4 (00:45→17:32)
--- NOTE | 2020-04-11 01:30 | NUR ---
No acute changes to patient condition.
[2020-04-11] MEDS: HYDROmorphone 1mg/ml Carpuject IVP PRN ×4 (03:37→21:59)
[2020-04-11] MEDS: Zinc Oxide Oint 2oz TOPIC SCH ×3 (05:44→21:40)
--- NOTE | 2020-04-11 07:10 | NUR ---
NURSE NOTES: received patient report from last ramesh. patient is on bed asleep. not in acute distress. no acute events reported last night. afebrile. tube feeding, tolerating. on vent at prescribed rate.wound care per order. will follow plan fo care.
[2020-04-11] MEDS: Aspirin Baby 81mg GT SCH (08:21)
[2020-04-11] MEDS: Hydrocortisone 25mg supp RECTAL SCH ×2 (08:21→21:41)
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
--- NOTE | 2020-04-11 11:17 | NUR ---
CASE MANAGEMENT:REVIEW 04/11/20 SI: SEPSIS. BACTEREMIA. AORTIC DISSECTION ANEMIA...S/P 15 UNITS PRBC'S. TRACH/VENT/GTUBE. ESRD/HD 98.2 77 21 166/74 94% ON VENT SUPPORT W/30% FIO2 NO LABS FOR TODAY IS: IV DILAUDID Q4HRS PRN ULTRAM GT Q6HRS PRN CARAFATE GT Q6HRS ASA GT QD IV PEPCID Q12 REGLAN GT Q6HRS NORVASC GT QD : STEP DOWN UNIT DCP: FROM [facility]
--- NOTE | 2020-04-11 11:22 | Pulmonology Progress Note ---
Subjective ROS Limited/Unobtainable: Yes Interval Events: none major reported per nursing HEENT: Repors: no symptoms Respiratory: Reports: no symptoms Cardiovascular: Reports: no symptoms Gastrointestinal/Abdominal: Reports: diarrhea Allergies: Coded Allergies: No Known Allergies (Unverified , 10/10/17) All Systems: reviewed and negative except above Objective Last 24 Hour Vital Signs Date Time Temp Pulse Resp B/P (MAP) Pulse Ox O2 Delivery O2 Flow Rate FiO2 04/11/20 08:21 77 166/74 04/11/20 08:00 Mechanical Ventilator 04/11/20 08:00 30 04/11/20 08:00 98.2 77 166/74 (104) 04/11/20 07:42 84 04/11/20 07:14 70 21 30 04/11/20 05:45 158/79 04/11/20 04:54 85 22 30 04/11/20 04:07 98.4 04/11/20 04:00 30 04/11/20 04:00 82 04/11/20 04:00 98.4 164/79 (107) 04/11/20 04:00 Mechanical Ventilator 04/11/20 03:13 70 18 30 04/11/20 00:45 145/66 04/11/20 00:18 76 21 30 04/11/20 00:00 Mechanical Ventilator 04/11/20 00:00 30 04/11/20 00:00 99.0 145/66 (92) 04/11/20 00:00 69 04/10/20 23:09 84 25 30 04/10/20 22:00 68 04/10/20 21:11 68 16 30 04/10/20 21:00 30 04/10/20 20:53 98.0 04/10/20 20:00 99.0 142/71 (94) 04/10/20 20:00 Mechanical Ventilator 04/10/20 19:24 75 18 30 04/10/20 18:22 138/60 04/10/20 16:00 67 04/10/20 16:00 97.9 73 20 138/60 (86) 94 04/10/20 16:00 30 04/10/20 16:00 Mechanical Ventilator 04/10/20 15:28 69 15 30 04/10/20 13:05 139/95 04/10/20 12:00 Mechanical Ventilator 04/10/20 12:00 30 04/10/20 12:00 97.5 66 18 139/95 (110) 94 04/10/20 11:59 67 Intake and Output 04/10/20 04/11/20 19:00 07:00 Intake Total 480 ml 440 ml Output Total 200 ml 150 ml Balance 280 ml 290 ml Tube Feeding 480 ml 440 ml Output Urine Total 200 ml 150 ml General Appearance: no acute distress HEENT: atraumatic, status post trach Respiratory: lungs clear Cardiovascular: normal rate, regular rhythm Extremities: other - edema bilateral Laboratory Tests 04/11/20 11:20: POC Whole Blood Glucose 98 Current Medications Medications (Trade) Dose Ordered Sig/Penny Route PRN Reason Start Time Stop Time Status Last Admin Dose Admin Amlodipine Besylate (Norvasc) 5 mg DAILY ORAL 04/10/20 09:00 05/10/20 08:59 04/11/20 08:21 Aspirin (ASA) 81 mg DAILY GT 03/07/20 09:00 04/21/20 08:59 04/11/20 08:21 Chlorhexidine Gluconate (Ling-Hex 2%) 1 applic DAILY@1999 TOPIC 03/03/20 20:00 06/01/20 19:59 04/10/20 20:24 Dextrose (Dextrose 50%) 25 ml Q30M PRN IV Hypoglycemia 03/15/20 07:30 06/13/20 07:29 04/05/20 09:08 Dextrose (Dextrose 50%) 50 ml Q30M PRN IV Hypoglycemia 03/15/20 07:30 06/13/20 07:29 Famotidine (Pepcid) 20 mg BID GT 04/06/20 18:00 07/05/20 17:59 04/11/20 08:20 Hydralazine HCl (Apresoline) 25 mg Q6H PRN GT For High Blood Pressure 03/02/20 22:00 05/31/20 21:59 04/10/20 03:40 Hydralazine HCl (Apresoline) 50 mg Q6HR GT 04/07/20 00:00 07/06/20 00:00 04/11/20 05:45 Hydrocortisone (Anusol HC) 25 mg Q12HR RECTAL 03/23/20 21:00 06/21/20 08:59 04/11/20 08:21 Hydromorphone HCl (Dilaudid) 0.5 mg Q4H PRN IVP For Pain 04/09/20 22:30 04/16/20 22:29 04/11/20 03:37 Metoclopramide HCl (Reglan) 5 mg EVERY 6 HOURS NG 04/06/20 12:00 05/06/20 11:59 04/11/20 05:44 Sodium Hypochlorite (Dakin's Quarter Strength) 1 applic BEDTIME TOPIC 04/04/20 21:00 05/02/20 08:59 04/10/20 22:37 Sucralfate (Carafate) 1 gm EVERY 6 HOURS GT 03/17/20 18:00 06/09/20 08:59 04/11/20 05:45 Tramadol HCl (Ultram) 50 mg Q6H PRN GT Moderate Pain (Pain Scale 4-6) 04/09/20 22:30 04/16/20 22:29 04/10/20 08:39 Zinc Oxide (Zinc Oxide) 1 applic Q8HR TOPIC 03/25/20 22:00 06/22/20 17:59 04/11/20 05:44 Assessment/Plan Assessment/Plan 1. Chronic respiratory failure. - CT chest/abd/pelv: improving pleural effusion 2. Mechanical ventilation. - remains on 30% FiO2 saturating well - suction secretions as needed 3. Chronic tracheostomy. 4. Chronic G-tube. 5. Anemia. - s/p transfusion - stool OB positive (03/02, 03/03, 03/22) - off anticoags 6. Renal failure. 7. Leukocytosis and sepsis. - WBC now wnl 8. Sepsis UTI 9. Gram positive cocci bacteremia - f/u BCx negative for growth 10. COVID-19 negative 11. Diarrhea - C. diff neg 12. Hypoglycemia - resolved 13. Bradycardia - no urgent indication for pacemaker per cardio 14. Gastric ulcer - on PPI -No active bleeding - GI following 15. Pleural effusion - small; insufficient volume for safe thoracentesis - on HD 16. thoracic aortic aneurysm - noted on CT imaging - pt needs emergent transfer out to [facility] for CT surgery evaluation, primary MD aware - Pt might not be a candidate for TAA repair 17. Ascites - s/p paracentesis (2/), 2.3L out 18. DVT ppx - on SCD -Venous duplex ultrasound of legs negative for DVT (03/25) Noted discharge planning Medically stable for discharge from pulmonary standpoint The care of this patient was discussed with my supervising physician Time spent for this encounter was approximately 31 minutes Cruz Wilson Apr 11, 2020 11:22
--- NOTE | 2020-04-11 14:10 | Nephrology Progress Note ---
Assessment/Plan Problem List: (1) Renal failure (ARF), acute on chronic (2) Anemia (3) Hyponatremia (4) Respiratory failure Assessment (1) JAVIER (acute kidney injury) (2) Renal failure (ARF), acute on chronic (3) Feeding by G-tube (4) Tracheostomy in place (5) Electrolyte imbalance, hyponatremia (6) Anemia, severe (7) Respiratory failure, acute and chronic (8) history of elevated lipase, pancreatitis (9) Elevated troponin I (10) Sepsis Plan April 11: No labs drawn today. Will check lab tomorrow. Last dialysis April 08. Continue per consultants. April 10: Labs reviewed. Renal parameters stable. Hemoglobin higher. Hemodialysis as needed. Low potassium addressed. April 09: Dialyzed yesterday. Discussed with RN. Hemoglobin low. Suggest transfusion 1 unit of packed RBCs. April 08: Dialysis today. Blood pressure medication adjusted. Check lab tomorrow. Continue per consultants. April 07: Patient remains full code. Heart rate improved. Medication list reviewed. Labs reviewed. Will order dialysis for tomorrow. Continue per consultants. April 06: Full code. Intubated via trach on ventilator. FiO2 30%. Blood sugar stable. D50 will be discontinued. Continue feeding. Dialysis as needed. April 05: Remains in ICU. Low heart rate persists. Will initiate low-dose hydralazine with blood pressure parameters. Last dialysis April 03. Blood sugar stable on 30 mL of D10 hourly. GT feeding started. Continue to monitor electrolytes renal parameters and arrange for dialysis as needed. April 04: Patient currently in ICU due to low heart rate. Blood pressure is stable. Dialyzed yesterday. Labs reviewed. Renal parameters and electrolytes stable. Medication list reviewed. Continue per cardiology with regard to bradycardia. April 03: Labs reviewed. We will order dialysis today. Continue per consultants. April 02: Labs reviewed. No need for dialysis today. Continue to monitor renal parameters. April 01: Labs reviewed. Renal parameters stable. No dialysis today. Continue per consultants. March 31: No labs drawn today. Renal parameters stable as of yesterday. Will check lab tomorrow. Dialysis as needed. March 30: Labs reviewed. Low phosphorus addressed. Continue per PMD and consultants. Dialysis as needed. March 29: Dialyzed yesterday. No CHEM panel drawn today. We will continue to monitor renal parameters. Continue per consultants. March 28: Due for dialysis today. Labs reviewed. Stable from renal standpoint of view. March 27: Due for dialysis tomorrow. Labs reviewed. Medication list rev iewed. Continue per current management. March 26: Last dialyzed March 24. Labs reviewed. Low phosphorus replaced. Continue to monitor renal parameters. Dialysis as needed. March 25: Dialyzed yesterday. Labs reviewed. Low phosphorus replaced. Continue per current management. Hemoglobin higher. March 24: Labs reviewed. Due for dialysis today. Continue per current management. Hemoglobin lower. Transfusion per employee relation manager. March 23: Labs reviewed. Dialyzed yesterday. Next dialysis tomorrow. Anemia management per employee relation manager. March 22: Labs reviewed. Due for dialysis today. Discussed with RN. Agree with discontinuation of the Norman catheter. Hemoglobin lower. Transfusion per employee relation manager. March 21: Labs reviewed. Will arrange for dialysis tomorrow. Continue per consultants. Will hold phosphorus binders at this time. March 20: Labs reviewed. Patient was dialyzed yesterday. Electrolyte abnormalities corrected. Continue per current management. March 19: Due for dialysis today. Abnormal labs noted. All will be corrected after dialysis. March 18: Labs reviewed. Will dialyze tomorrow. Patient being transfused today. Patient due for abdominal paracentesis. We will keep the Norman in. Continue to monitor renal parameters and dialyze as needed. March 17: No CHEM panel done today. CBC reviewed. Hemoglobin is lowering. Dialyzed yesterday. Will check lab tomorrow. Continue per consultants. March 16: Labs reviewed. Due for dialysis today. Hemoglobin 10.2 today. Continue to monitor renal parameters. March 15: Labs reviewed. Dialyzed March 13. Due for dialysis March 16. Hemoglobin lower. 1 unit of packed RBCs ordered. Per orders. March 14: No labs drawn today. Dialyzed yesterday. Full code. Will check lab tomorrow. Dialysis as needed. March 13: Labs reviewed. Due for dialysis today. Patient remains full code. Continue per current management. March 12: Labs reviewed. Dialyzed yesterday. Due for dialysis tomorrow. Discussed with RN. Patient full code. Continue per current management. March 11: Labs reviewed. Dialyzed this morning. Phosphorus binders dose adjusted. Continue per consultants. Continue to monitor renal parameters. CT: Extensive thoracoabdominal aortic dissection March 10: Labs reviewed. Will order dialysis tomorrow. Phosphorus binders added. Continue per consultants. March 09: No chemistry panel done today. Patient dialyzed yesterday. On dextrose 10% for hypoglycemia. We will check labs tomorrow. Dialysis as needed. March 08: Labs reviewed. Will order dialysis today. Blood sugar low. D10 50 cc an hour started. Continue as is. March 07: Labs reviewed. Dialyzed March 05 and March 06. Continue to monitor renal parameters and hemoglobin. Abnormal electrolytes addressed. IV fluids stopped. Per orders. March 06: Labs reviewed. Dialyzed yesterday. Will reorder dialysis for today. Continue to monitor renal parameters. Hemoglobin 8.4. Patient full code. March 05: Labs reviewed. Patient did not receive dialysis until this morning. Proceed with dialysis. Continue to monitor renal parameters and hemoglobin and hematocrit. March 04: Labs reviewed. Hemoglobin lower. Patient actively bleeding. Was not dialyzed yesterday. Due for GI endoscopy. Continue fluid challenge. Transfusion as needed. Dialysis today. March 03: Labs reviewed. Dialysis ordered. Blood pressure medication all discontinued due to hypotensive state. Albumin bolus given. Continue to monitor renal parameters. Medication list reviewed. Midodrin for low blood pressure ordered Subjective ROS Limited/Unobtainable: Yes Objective Objective Last 24 Hour Vital Signs Date Time Temp Pulse Resp B/P (MAP) Pulse Ox O2 Delivery O2 Flow Rate FiO2 04/11/20 12:06 144/67 04/11/20 12:00 Mechanical Ventilator 04/11/20 12:00 30 04/11/20 11:42 72 04/11/20 11:30 98.2 85 18 144/67 (92) 94 04/11/20 08:21 77 166/74 04/11/20 08:00 Mechanical Ventilator 04/11/20 08:00 30 04/11/20 08:00 98.2 77 166/74 (104) 04/11/20 07:42 84 04/11/20 07:14 70 21 30 04/11/20 05:45 158/79 04/11/20 04:54 85 22 30 04/11/20 04:07 98.4 04/11/20 04:00 30 04/11/20 04:00 82 04/11/20 04:00 98.4 164/79 (107) 04/11/20 04:00 Mechanical Ventilator 04/11/20 03:13 70 18 30 04/11/20 00:45 145/66 04/11/20 00:18 76 21 30 04/11/20 00:00 Mechanical Ventilator 04/11/20 00:00 30 04/11/20 00:00 99.0 145/66 (92) 04/11/20 00:00 69 04/10/20 23:09 84 25 30 04/10/20 22:00 68 04/10/20 21:11 68 16 30 04/10/20 21:00 30 04/10/20 20:53 98.0 04/10/20 20:00 99.0 142/71 (94) 04/10/20 20:00 Mechanical Ventilator 04/10/20 19:24 75 18 30 04/10/20 18:22 138/60 04/10/20 16:00 67 04/10/20 16:00 97.9 73 20 138/60 (86) 94 04/10/20 16:00 30 04/10/20 16:00 Mechanical Ventilator 04/10/20 15:28 69 15 30 Intake and Output 04/10/20 04/11/20 19:00 07:00 Intake Total 480 ml 440 ml Output Total 200 ml 150 ml Balance 280 ml 290 ml Tube Feeding 480 ml 440 ml Output Urine Total 200 ml 150 ml Current Medications Medications (Trade) Dose Ordered Sig/Penny Route PRN Reason Start Time Stop Time Status Last Admin Dose Admin Amlodipine Besylate (Norvasc) 5 mg DAILY ORAL 04/10/20 09:00 05/10/20 08:59 04/11/20 08:21 Aspirin (ASA) 81 mg DAILY GT 03/07/20 09:00 04/21/20 08:59 04/11/20 08:21 Chlorhexidine Gluconate (Ling-Hex 2%) 1 applic DAILY@1999 TOPIC 03/03/20 20:00 06/01/20 19:59 04/10/20 20:24 Dextrose (Dextrose 50%) 25 ml Q30M PRN IV Hypoglycemia 03/15/20 07:30 06/13/20 07:29 04/05/20 09:08 Dextrose (Dextrose 50%) 50 ml Q30M PRN IV Hypoglycemia 03/15/20 07:30 06/13/20 07:29 Famotidine (Pepcid) 20 mg BID GT 04/06/20 18:00 07/05/20 17:59 04/11/20 08:20 Hydralazine HCl (Apresoline) 25 mg Q6H PRN GT For High Blood Pressure 03/02/20 22:00 05/31/20 21:59 04/10/20 03:40 Hydralazine HCl (Apresoline) 50 mg Q6HR GT 04/07/20 00:00 07/06/20 00:00 04/11/20 12:06 Hydrocortisone (Anusol HC) 25 mg Q12HR RECTAL 03/23/20 21:00 06/21/20 08:59 04/11/20 08:21 Hydromorphone HCl (Dilaudid) 0.5 mg Q4H PRN IVP For Pain 04/09/20 22:30 04/16/20 22:29 04/11/20 12:06 Metoclopramide HCl (Reglan) 5 mg EVERY 6 HOURS NG 04/06/20 12:00 05/06/20 11:59 04/11/20 12:06 Sodium Hypochlorite (Dakin's Quarter Strength) 1 applic BEDTIME TOPIC 04/04/20 21:00 05/02/20 08:59 04/10/20 22:37 Sorbitol (sorbitoL) 30 ml Q6HR PRN ORAL Constipation 04/11/20 12:15 05/11/20 12:14 Sucralfate (Carafate) 1 gm EVERY 6 HOURS GT 03/17/20 18:00 06/09/20 08:59 04/11/20 12:06 Tramadol HCl (Ultram) 50 mg Q6H PRN GT Moderate Pain (Pain Scale 4-6) 04/09/20 22:30 04/16/20 22:29 04/10/20 08:39 Zinc Oxide (Zinc Oxide) 1 applic Q8HR TOPIC 03/25/20 22:00 06/22/20 17:59 04/11/20 13:27 Laboratory Tests 04/11/20 11:20: POC Whole Blood Glucose 98 Height (Feet): 5 Height (Inches): 3.00 Weight (Pounds): 128 General Appearance: no apparent distress EENT: other - Trach to vent Cardiovascular: normal rate Respiratory/Chest: decreased breath sounds Abdomen: distended Johnny Houston MD Apr 11, 2020 14:10
[2020-04-11] MEDS: traMADol 50mg tab GT PRN (15:22)
--- NOTE | 2020-04-11 17:30 | Cardiology Progress Note ---
Subjective DATE OF SERVICE: Apr 10, 2020 (late entry due to computer malfxn) BP control improved. Heart rates remain stable since dialyzed, even though potassium wasn't elevated. CT scan revealed extensive thoracoabd aortic dissection- Chase Type B Objective Last 24 Hour Vital Signs reviewed HEENT: Thin Trach secretions RHYTHM: NSR, SB LUNGS: bilateral rhonchi - few, trach site clean CARDIAC: normal rate, regular rhythm, normal S1 and S2 ABDOMEN: normal bowel sounds, non tender, soft, G-Tube intact EXTREMITIES: normal range of motion, non-tender, normal inspection Laboratory Tests Test 04/11/20 11:20 POC Whole Blood Glucose 98 MG/DL (74-106) Assessment/Plan Assessment/Plan Aortic dissections - [place] B Sepsis with recovered shock Sinus node disease with bradycardia Hx pacemaker explant Ischemic cardiomyopathy - hx CABG? Paroxysmal Atrial Fib Respiratory failure with trach Hx thoracic aortic aneurysm repair ESRD Anemia HypoPO4 Hypertension/HHD with rising BP range Remains off beta blockers; would not resume despite benefit in setting of AAA with dissection, as she has repeatedly developed significant bradycardia. Avoid metoclopramide, which can aggravate bradycardia. athletic monitor Vent support Antimicrobials DVT prophyl Advance antiHTN meds until BP optimized Non-surgical mngmt Deni Willams MD Apr 11, 2020 17:30
--- NOTE | 2020-04-11 17:32 | Cardiology Progress Note ---
Subjective BP control remains stable. Heart rates remain stable since dialyzed, even though potassium wasn't elevated. CT scan revealed extensive thoracoabd aortic dissection- Chase Type B Objective Last 24 Hour Vital Signs Date Time Temp Pulse Resp B/P (MAP) Pulse Ox O2 Delivery O2 Flow Rate FiO2 04/11/20 16:51 83 04/11/20 16:00 30 04/11/20 16:00 Mechanical Ventilator 04/11/20 13:07 77 19 30 04/11/20 12:06 144/67 04/11/20 12:00 Mechanical Ventilator 04/11/20 12:00 30 04/11/20 11:42 72 04/11/20 11:30 98.2 85 18 144/67 (92) 94 04/11/20 11:05 78 17 30 04/11/20 09:02 79 20 30 04/11/20 08:21 77 166/74 04/11/20 08:00 Mechanical Ventilator 04/11/20 08:00 30 04/11/20 08:00 98.2 77 166/74 (104) 04/11/20 07:42 84 04/11/20 07:14 70 21 30 04/11/20 05:45 158/79 04/11/20 04:54 85 22 30 04/11/20 04:07 98.4 04/11/20 04:00 30 04/11/20 04:00 82 04/11/20 04:00 98.4 164/79 (107) 04/11/20 04:00 Mechanical Ventilator 04/11/20 03:13 70 18 30 04/11/20 00:45 145/66 04/11/20 00:18 76 21 30 04/11/20 00:00 Mechanical Ventilator 04/11/20 00:00 30 04/11/20 00:00 99.0 145/66 (92) 04/11/20 00:00 69 04/10/20 23:09 84 25 30 04/10/20 22:00 68 04/10/20 21:11 68 16 30 04/10/20 21:00 30 04/10/20 20:53 98.0 04/10/20 20:00 99.0 142/71 (94) 04/10/20 20:00 Mechanical Ventilator 04/10/20 19:24 75 18 30 04/10/20 18:22 138/60 HEENT: Thin Trach secretions RHYTHM: NSR, SB LUNGS: bilateral rhonchi - few, trach site clean CARDIAC: normal rate, regular rhythm, normal S1 and S2 ABDOMEN: normal bowel sounds, non tender, soft, G-Tube intact EXTREMITIES: normal range of motion, non-tender, normal inspection Laboratory Tests Test 04/11/20 11:20 POC Whole Blood Glucose 98 MG/DL (74-106) Assessment/Plan Assessment/Plan Aortic dissections - [place] B Sepsis with recovered shock Sinus node disease with bradycardia Hx pacemaker explant Ischemic cardiomyopathy - hx CABG? Paroxysmal Atrial Fib Respiratory failure with trach Hx thoracic aortic aneurysm repair ESRD Anemia HypoPO4 Hypertension/HHD with rising BP range Remains off beta blockers; would not resume despite benefit in setting of AAA with dissection, as she has repeatedly developed significant bradycardia. Avoid metoclopramide, which can aggravate bradycardia. youth nutritional monitor Vent support Antimicrobials DVT prophyl Advance antiHTN meds until BP optimized Non-surgical mngmt Deni Willams MD Apr 11, 2020 17:32
[2020-04-11] MEDS: Sorbitol Solution UD 30ml ORAL PRN (17:40)
[2020-04-11] MEDS: HydrALAZINE 25mg tab GT PRN (17:48)
--- NOTE | 2020-04-11 19:19 | NUR ---
NURSE HAND-OFF REPORT: Important Events on Shift:stable, awaitng placement Patient Status: full code Diet: tube feedings Pending Orders: [] Pending Results/Labs:[] Pending MD notification:[] Latest Vital Signs: Temperature 98.2 , Pulse 74 , B/P 157 /80 , Respiratory Rate 20 , O2 SAT 94 , Mechanical Ventilator, O2 Flow Rate . Vital Sign Comment: stable EKG Rhythm: Sinus Rhythm Rhythm change?: N MD Notified?: N -Dr Екатерина HATFIELD Response: Order Received& Read Back Latest Chavarria Fall Score: 50 Fall Risk: High Risk Safety Measures: Call light Within Reach, Bed Alarm Zone 2, Side Rails Side Rails x2, Bed position Low and Locked. Fall Precautions: Yellow Socks Report given to seun ramesh.
--- NOTE | 2020-04-11 19:20 | NUR ---
NURSE NOTES: Got report from Cornelia ZIMMERMAN. Pt in stable condition. Pt A+Ox3. Pt running Sinus Rhythm on the monitor. Pt resting in bed comfortably. No s/s of distress or discomfort noted. Pt afebrile. Pt on tube feeding tolerating well Nepro@40. Pt on vent at ordered rate. VSS. Bed in low and locked position, call light within reach, bedside table within reach. Continue to monitor.
--- NOTE | 2020-04-11 19:25 | General Progress Note ---
Subjective Allergies: Coded Allergies: No Known Allergies (Unverified , 10/10/17) Subjective Above noted d/w RN tolerating TF - nephro at 40 last BM on Objective Last 24 Hour Vital Signs Date Time Temp Pulse Resp B/P (MAP) Pulse Ox O2 Delivery O2 Flow Rate FiO2 04/11/20 17:48 157/80 04/11/20 17:32 144/67 04/11/20 17:06 74 20 30 04/11/20 16:51 83 04/11/20 16:00 30 04/11/20 16:00 Mechanical Ventilator 04/11/20 16:00 98.2 85 18 157/80 (105) 94 04/11/20 15:09 87 22 30 04/11/20 13:07 77 19 30 04/11/20 12:06 144/67 04/11/20 12:00 Mechanical Ventilator 04/11/20 12:00 30 04/11/20 11:42 72 04/11/20 11:30 98.2 85 18 144/67 (92) 94 04/11/20 11:05 78 17 30 04/11/20 09:02 79 20 30 04/11/20 08:21 77 166/74 04/11/20 08:00 Mechanical Ventilator 04/11/20 08:00 30 04/11/20 08:00 98.2 77 166/74 (104) 04/11/20 07:42 84 04/11/20 07:14 70 21 30 04/11/20 05:45 158/79 04/11/20 04:54 85 22 30 04/11/20 04:07 98.4 04/11/20 04:00 30 04/11/20 04:00 82 04/11/20 04:00 98.4 164/79 (107) 04/11/20 04:00 Mechanical Ventilator 04/11/20 03:13 70 18 30 04/11/20 00:45 145/66 04/11/20 00:18 76 21 30 04/11/20 00:00 Mechanical Ventilator 04/11/20 00:00 30 04/11/20 00:00 99.0 145/66 (92) 04/11/20 00:00 69 04/10/20 23:09 84 25 30 04/10/20 22:00 68 04/10/20 21:11 68 16 30 04/10/20 21:00 30 04/10/20 20:53 98.0 04/10/20 20:00 99.0 142/71 (94) 04/10/20 20:00 Mechanical Ventilator 04/10/20 19:24 75 18 30 Intake and Output 04/10/20 04/11/20 19:00 07:00 Intake Total 480 ml 440 ml Output Total 200 ml 150 ml Balance 280 ml 290 ml Tube Feeding 480 ml 440 ml Output Urine Total 200 ml 150 ml Laboratory Tests 04/11/20 11:20: POC Whole Blood Glucose 98 Height (Feet): 5 Height (Inches): 3.00 Weight (Pounds): 128 Objective Elderly woman NCAT (+) trach coarse BS RR abd soft NT ND, (+) GT no edema eyes open, looks at MD Assessment/Plan Assessment/Plan: Assessment/Plan Problem List: (1) Hx of CABG ICD Codes: Z95.1 - Presence of aortocoronary bypass graft SNOMED: 003646052, 552398016 (2) History of tracheostomy ICD Codes: Z98.890 - Other specified postprocedural states SNOMED: 812577138, 610315647 (3) Dysphagia, PEG (percutaneous endoscopic gastrostomy) status ICD Codes: Z93.1 - Gastrostomy status SNOMED: 277290459, 525372142 (4) Renal failure ICD Codes: N19 - Unspecified kidney failure SNOMED: 64670790, 347353306 (5) Severe anemia ICD Codes: D64.9 - Anemia, unspecified SNOMED: 406299820 Assessment/Plan: s/p EGD gastric ulcer on ppi and carafate fu H&H GTF Edmund Farris MD Apr 11, 2020 19:25
[2020-04-11] MEDS: Dyna-Hex 2% Top Sol 2oz TOPIC SCH (20:00)
[2020-04-11] MEDS: Dakin's 0.125% Soln (Quarter Strength) 16oz TOPIC SCH (21:00)
[2020-04-12] VITALS: BP 150/84
[2020-04-12] MEDS: Sucralfate 1gm tab GT SCH ×4 (00:41→17:26)
[2020-04-12] MEDS: HydrALAZINE 50mg tab GT SCH ×4 (00:41→17:25)
[2020-04-12] MEDS: Metoclopramide 10mg/10ml Liq NG SCH ×4 (00:41→17:26)
[2020-04-12 03:30] VITALS: BP 147/77
[2020-04-12] MEDS: Zinc Oxide Oint 2oz TOPIC SCH ×3 (05:42→21:31)
[2020-04-12 05:50] LABS: HEMATOCRIT 21.3 % (37.0-47.0); HEMOGLOBIN 7.2 G/DL (12.0-16.0); MEAN CORPUSCULAR VOLUME 91 FL (80-99); PLATELET COUNT 358 K/UL (150-450); RED BLOOD COUNT 2.34 M/UL (4.20-5.40); RED CELL DISTRIBUTION WIDTH 14.1 % (11.6-14.8); WHITE BLOOD COUNT 6.2 K/UL (4.8-10.8)
[2020-04-12] MEDS: HYDROmorphone 1mg/ml Carpuject IVP PRN ×4 (05:51→22:14)
[2020-04-12 06:40] LABS: ALANINE AMINOTRANSFERASE 15 U/L (12-78); ALBUMIN 1.4 G/DL (3.4-5.0); ALBUMIN/GLOBULIN RATIO 0.3 (1.0-2.7); ALKALINE PHOSPHATASE 167 U/L (46-116); ANION GAP 9 mmol/L (5-15); ASPARTATE AMINO TRANSFERASE 33 U/L (15-37); BILIRUBIN,TOTAL 0.4 MG/DL (0.2-1.0); BLOOD UREA NITROGEN 111 mg/dL (7-18); CALCIUM 8.4 MG/DL (8.5-10.1); CARBON DIOXIDE 27 MMOL/L (21-32); CHLORIDE 101 MMOL/L (98-107); PHOSPHORUS 1.9 MG/DL (2.5-4.9); POTASSIUM 3.6 MMOL/L (3.5-5.1); SODIUM 137 MMOL/L (136-145)
--- NOTE | 2020-04-12 07:03 | NUR ---
NURSE HAND-OFF REPORT: Important Events on Shift:[] Patient Status: [STABLE] Diet: [NEPRO@40] Pending Orders: [] Pending Results/Labs:[] Pending MD notification:[] Latest Vital Signs: Temperature 99.0 , Pulse 87 , B/P 147 /77 , Respiratory Rate 20 , O2 SAT 95 , Mechanical Ventilator, O2 Flow Rate . Vital Sign Comment: [] EKG Rhythm: Sinus Rhythm Rhythm change?: N MD Notified?: N -Dr Екатерина HATFIELD Response: Order Received& Read Back Latest Chavarria Fall Score: 50 Fall Risk: High Risk Safety Measures: Call light Within Reach, Bed Alarm Zone 2, Side Rails Side Rails x2, Bed position Low and Locked. Fall Precautions: Yellow Socks Report given to [JAVID ZIMMERMAN].
--- NOTE | 2020-04-12 07:05 | NUR ---
NURSE NOTES: received patient report from seun ramesh. patient is on bed asleep. not in acute distress. on tf running at prescribed rate. aox2-3. pain meds prn. wound care per order. not in acute distress. no acute events reported last night. hd prn. will follow plan of care.
[2020-04-12 08:00] VITALS: BP 141/88
[2020-04-12] MEDS: Aspirin Baby 81mg GT SCH (08:39)
[2020-04-12] MEDS: Hydrocortisone 25mg supp RECTAL SCH ×2 (08:39→20:44)
[2020-04-12] MEDS: traMADol 50mg tab GT PRN (08:48)
[2020-04-12] MEDS: Sorbitol Solution UD 30ml ORAL PRN ×3 (08:48→20:44)
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
--- NOTE | 2020-04-12 11:45 | Hematology/Onc Progress Note ---
Assessment/Plan Assessment/Plan # Leukocytosis, now with likely bacteremia, as per ID care --> Cxr: : Large left abiola consolidation/effusion --> wbc 30-->40-->27->30->29-->35->32-->28-->21->10.2-->6.6-->7,2 --> ABX angelo/vanc-->tobra/edson/vanc-->dapto/ceftazadine->off abx --> smear reviewed --> ID recs are noted # Anemia of chronic disease due to underlying chronic medical issues, multifactorial --> Anemia workup has been reviewed, cw acd --> No evidence of hemolysis is noted, peripheral smear has been reviewed. --> Hgb goal >7. Transfuse prn. --> Epogen required in prior --> Medications have been reviewed --> low threshold for gi evaluation in case has occult + --> hgb 1.9-->5-->7.1-->8.8-->8.1->7.5-> 8. 2-->6.8-->9.2-->8.4->7.7-->7.1-->8.8->8.7-->8.2-->8 --> 1 unit prbc1, 2 units 01/15, 03/02, 03/18, 03/24 --> gi eval as needed # Elevated tumor markers, cea and ca 19.9 --> reviewed prior 01/27/20 cat scan a/p --> no masses noted, hold off further extensive w/u # Thrombocytopenia likely reactive v medication induced --> plt 200-->129->91-->86->100->78-->86-->87-->125->135 --> transfuse as needed --> r/o dic, has been ruled out --> anticoag as needed # Coagulopathy with inr 1.5 --> consider vit k/ffp as needed preprocedure --> labs noted # Aortic dissection as seen on Ct ==> when stable, consider transfer hloc # JAVIER initially >2 --> on ivfs --> per renal is on HD # Elevated d-dimer, likely infection related --> venous duplex prior neg --> in prior neg # Dysphagia s/p peg --> as per gi # Thoracic aortic dissection --> s/p repair early 2017 # Chronic Resp failure -> s/p trach/vent # Psychiatric history on ativan/haldol # [place] resident # Dvt ppx --> scds The timing of this note does not necessarily reflect the time of the patient was seen. Greatly appreciate consultation. Subjective HEENT: Denies: no symptoms, eye pain, blurred vision, tearing, double vision, ear pain, ear discharge, nose pain, nose congestion, throat pain, throat swelling, mouth pain, mouth swelling, other Gastrointestinal/Abdominal: Denies: no symptoms, abdomen distended, abdominal pain, black stools, tarry stools, blood in stool, constipated, diarrhea, difficulty swallowing, nausea, poor appetite, poor fluid intake, rectal bleeding, vomiting, other Genitourinary: Denies: no symptoms, burning, discharge, frequency, flank pain, hematuria, incontinence, pain, urgency, other Neurologic/Psychiatric: Denies: no symptoms, anxiety, depressed, emotional problems, headache, numbness, paresthesia, pre-existing deficit, seizure, tingling, tremors, weakness, other Endocrine: Denies: no symptoms, excessive sweating, flushing, intolerance to cold, intolerance to heat, increased hunger, increased thirst, increased urine, unexplained weight gain, unexplained weight loss, other Hematologic/Lymphatic: Denies: no symptoms, anemia, easy bleeding, easy b ruising, adenopathy, other Allergies: Coded Allergies: No Known Allergies (Unverified , 10/10/17) Subjective 03/04 nv, for 1 unit transfusion this am as hgb remains low, wbc better 03/05 egd was done did show large nonbleeding gastric ulcer, high tumor markers 03/06 nv, with davis overnight, bp remains stable, with occult + stool, roman Rn 03/09 nv, remains stable, on vanc/tobra/edson, meds reviewed, no bleeding 03/10 nv, on vent, no bleeding, receiving abx, no night sweats 03/11 nv, dw surgeon and pcp, with aortic dissection to transfer [facility] when stable 03/12 nv, labs reviewed, wbc 21, hgb 7.5, otherwise is comfortable 03/13 nv, labs noted, no bleeding, wbc 13, hgb improved, meds reviewed 03/15 nv, meds reviewed, labs noted, no bleeding, on vent 03/16 nv/tv, peg, meds noted, hgb remains stable, improved to 10 03/17 s/p egd, with gastric ulceration noted, hgb stable 03/18 labs noted, hgb 6.8, to get 1 unit prbc, meds reviewed 03/19 hgb 9.2, plt 78, no hemoptysis, is comfortable 03/20 labs reviewed, meds noted, no bleeding, roman rn 03/22 wound treatment, vent, with gtube, labs reviewed, roman rn 03/23 labs reviewed, meds noted, no bleeding, with gt 03/24 large bm overnight that was bloody, hgb 7.1, roman rn 03/25 labs pending this am, comfortable, nsr, meds noted 03/26 nv, vent, with gt, labs reviewed, hgb 8.8 03/27 nv, vent, labs reviewed, with gt, hgb stable 03/29 nv, vent, labs pending, meds reviewed, no bleeding 03/30 nv, t/v, with gt feeds, labs reviewed, meds noted 03/31 nv, t/v, oral secretions were suctioned, meds reviewed 04/01 nv, t/v, labs are reviewed, meds noted, hgb 7.4 04/02 gt leaking, facial grimacing, labs noted, no bleeding, roman rn 04/03 nv, labs noted, no bleeding, roman rn, h/h stable 04/04 nv, labs reviewed, gtube replacement as per Dr. Mccauley 04/05 nv, labs reviewed, meds noted no bleeding, roman rn 04/06 nv, labs, meds noted, no bleeding, on vt, no new changes 04/07 nv, meds reviewed, labs noted, no bleeding, bp was high on, transferred to icu 04/08 nv, labs noted, no bleeding, evaluated at the bedside 04/09 nv, labs noted, no bleeding, hgb 7.6, repeat pending 04/10 nv is on gt feeds, labs reviewed, hgb better 04/12 nv, gt feeds, asleep, no night sweats, meds reviewed Objective Objective Current Medications Medications (Trade) Dose Ordered Sig/Penny Route PRN Reason Start Time Stop Time Status Last Admin Dose Admin Amlodipine Besylate (Norvasc) 5 mg DAILY ORAL 04/10/20 09:00 05/10/20 08:59 04/12/20 08:39 Aspirin (ASA) 81 mg DAILY GT 03/07/20 09:00 04/21/20 08:59 04/12/20 08:39 Chlorhexidine Gluconate (Ling-Hex 2%) 1 applic DAILY@1999 TOPIC 03/03/20 20:00 06/01/20 19:59 04/11/20 20:00 Dextrose (Dextrose 50%) 25 ml Q30M PRN IV Hypoglycemia 03/15/20 07:30 06/13/20 07:29 04/05/20 09:08 Dextrose (Dextrose 50%) 50 ml Q30M PRN IV Hypoglycemia 03/15/20 07:30 06/13/20 07:29 Famotidine (Pepcid) 20 mg BID GT 04/06/20 18:00 07/05/20 17:59 04/12/20 08:39 Hydralazine HCl (Apresoline) 25 mg Q6H PRN GT For High Blood Pressure 03/02/20 22:00 05/31/20 21:59 04/11/20 17:48 Hydralazine HCl (Apresoline) 50 mg Q6HR GT 04/07/20 00:00 07/06/20 00:00 04/12/20 05:42 Hydrocortisone (Anusol HC) 25 mg Q12HR RECTAL 03/23/20 21:00 06/21/20 08:59 04/12/20 08:39 Hydromorphone HCl (Dilaudid) 0.5 mg Q4H PRN IVP For Pain 04/09/20 22:30 04/16/20 22:29 04/12/20 05:51 Metoclopramide HCl (Reglan) 5 mg EVERY 6 HOURS NG 04/06/20 12:00 05/06/20 11:59 04/12/20 05:42 Sodium Hypochlorite (Dakin's Quarter Strength) 1 applic BEDTIME TOPIC 04/04/20 21:00 05/02/20 08:59 04/11/20 21:00 Sodium Phosphate 15 mm/Sodium Chloride 280 ml @ 70.273 mls/ hr ONCE IVPB 04/12/20 12:30 04/12/20 13:30 Sorbitol (sorbitoL) 30 ml Q6HR PRN ORAL Constipation 04/11/20 12:15 05/11/20 12:14 04/12/20 08:48 Sucralfate (Carafate) 1 gm EVERY 6 HOURS GT 03/17/20 18:00 06/09/20 08:59 04/12/20 05:42 Tramadol HCl (Ultram) 50 mg Q6H PRN GT Moderate Pain (Pain Scale 4-6) 04/09/20 22:30 04/16/20 22:29 04/12/20 08:48 Zinc Oxide (Zinc Oxide) 1 applic Q8HR TOPIC 03/25/20 22:00 06/22/20 17:59 04/12/20 05:42 Last 24 Hour Vital Signs Date Time Temp Pulse Resp B/P (MAP) Pulse Ox O2 Delivery O2 Flow Rate FiO2 04/12/20 08:39 87 147/77 04/12/20 08:00 Mechanical Ventilator 04/12/20 08:00 98.7 87 18 141/88 (105) 100 04/12/20 07:46 73 04/12/20 07:22 30 04/12/20 06:22 99.0 04/12/20 05:42 147/77 04/12/20 04:00 87 04/12/20 04:00 Mechanical Ventilator 04/12/20 03:54 30 04/12/20 03:30 99.0 92 20 147/77 (100) 95 04/12/20 03:28 91 23 30 04/12/20 00:41 150/84 04/12/20 00:00 98.4 84 19 150/84 (106) 95 04/12/20 00:00 Mechanical Ventilator 04/12/20 00:00 83 04/12/20 00:00 30 04/11/20 23:04 80 30 30 04/11/20 22:29 97.2 04/11/20 20:30 97.9 70 20 147/66 (93) 98 04/11/20 20:00 30 04/11/20 20:00 97.2 77 18 166/74 (104) 95 04/11/20 20:00 77 04/11/20 20:00 Mechanical Ventilator 04/11/20 19:30 71 18 30 04/11/20 17:48 157/80 04/11/20 17:32 144/67 04/11/20 17:06 74 20 30 04/11/20 16:51 83 04/11/20 16:00 30 04/11/20 16:00 Mechanical Ventilator 04/11/20 16:00 98.2 85 18 157/80 (105) 94 04/11/20 15:09 87 22 30 04/11/20 13:07 77 19 30 04/11/20 12:06 144/67 04/11/20 12:00 Mechanical Ventilator 04/11/20 12:00 30 04/11/20 11:42 72 04/11/20 11:30 98.2 85 18 144/67 (92) 94 04/11/20 11:05 78 17 30 04/11/20 09:02 79 20 30 04/11/20 08:21 77 166/74 04/11/20 08:00 Mechanical Ventilator 04/11/20 08:00 30 04/11/20 08:00 98.2 77 166/74 (104) 04/11/20 07:42 84 04/11/20 07:14 70 21 30 04/11/20 05:45 158/79 04/11/20 04:54 85 22 30 04/11/20 04:07 98.4 04/11/20 04:00 30 04/11/20 04:00 82 04/11/20 04:00 98.4 164/79 (107) 04/11/20 04:00 Mechanical Ventilator 04/11/20 03:13 70 18 30 04/11/20 00:45 145/66 04/11/20 00:18 76 21 30 04/11/20 00:00 Mechanical Ventilator 04/11/20 00:00 30 04/11/20 00:00 99.0 145/66 (92) 04/11/20 00:00 69 04/10/20 23:09 84 25 30 04/10/20 22:00 68 04/10/20 21:11 68 16 30 04/10/20 21:00 30 04/10/20 20:53 98.0 04/10/20 20:00 99.0 142/71 (94) 04/10/20 20:00 Mechanical Ventilator 04/10/20 19:24 75 18 30 04/10/20 18:22 138/60 04/10/20 16:00 67 04/10/20 16:00 97.9 73 20 138/60 (86) 94 04/10/20 16:00 30 04/10/20 16:00 Mechanical Ventilator 04/10/20 15:28 69 15 30 04/10/20 13:05 139/95 04/10/20 12:00 Mechanical Ventilator 04/10/20 12:00 30 04/10/20 12:00 97.5 66 18 139/95 (110) 94 04/10/20 11:59 67 Intake and Output 04/11/20 04/12/20 19:00 07:00 Intake Total 560 ml 440 ml Output Total 150 ml 200 ml Balance 410 ml 240 ml Intake Free Water 80 ml Tube Feeding 480 ml 440 ml Output Urine Total 150 ml 200 ml Labs Test 04/09/20 17:17 04/10/20 03:00 04/10/20 05:24 04/11/20 11:20 POC Whole Blood Glucose 102 MG/DL (74-106) 97 MG/DL (74-106) 98 MG/DL (74-106) White Blood Count 9.5 K/UL (4.8-10.8) Red Blood Count 2.58 M/UL (4.20-5.40) Hemoglobin 8.0 G/DL (12.0-16.0) Hematocrit 23.6 % (37.0-47.0) Mean Corpuscular Volume 92 FL (80-99) Mean Corpuscular Hemoglobin 31.1 PG (27.0-31.0) Mean Corpuscular Hemoglobin Concent 34.0 G/DL (32.0-36.0) Red Cell Distribution Width 13.5 % (11.6-14.8) Platelet Count 283 K/UL (150-450) Mean Platelet Volume 6.3 FL (6.5-10.1) Neutrophils (%) (Auto) 67.1 % (45.0-75.0) Lymphocytes (%) (Auto) 22.0 % (20.0-45.0) Monocytes (%) (Auto) 6.4 % (1.0-10.0) Eosinophils (%) (Auto) 3.9 % (0.0-3.0) Basophils (%) (Auto) 0.6 % (0.0-2.0) Test 04/11/20 17:25 04/12/20 04:08 POC Whole Blood Glucose 78 MG/DL (74-106) White Blood Count 6.2 K/UL (4.8-10.8) Red Blood Count 2.34 M/UL (4.20-5.40) Hemoglobin 7.2 G/DL (12.0-16.0) Hematocrit 21.3 % (37.0-47.0) Mean Corpuscular Volume 91 FL (80-99) Mean Corpuscular Hemoglobin 30.6 PG (27.0-31.0) Mean Corpuscular Hemoglobin Concent 33.7 G/DL (32.0-36.0) Red Cell Distribution Width 14.1 % (11.6-14.8) Platelet Count 358 K/UL (150-450) Mean Platelet Volume 5.0 FL (6.5-10.1) Neutrophils (%) (Auto) % (45.0-75.0) Lymphocytes (%) (Auto) % (20.0-45.0) Monocytes (%) (Auto) % (1.0-10.0) Eosinophils (%) (Auto) % (0.0-3.0) Basophils (%) (Auto) % (0.0-2.0) Sodium Level 137 MMOL/L (136-145) Potassium Level 3.6 MMOL/L (3.5-5.1) Chloride Level 101 MMOL/L (98-107) Carbon Dioxide Level 27 MMOL/L (21-32) Anion Gap 9 mmol/L (5-15) Blood Urea Nitrogen 111 mg/dL (7-18) Creatinine 3.0 MG/DL (0.55-1.30) Estimat Glomerular Filtration Rate 16.7 mL/min (>60) Glucose Level 91 MG/DL (74-106) Calcium Level 8.4 MG/DL (8.5-10.1) Phosphorus Level 1.9 MG/DL (2.5-4.9) Magnesium Level 2.5 MG/DL (1.8-2.4) Total Bilirubin 0.4 MG/DL (0.2-1.0) Aspartate Amino Transf (AST/SGOT) 33 U/L (15-37) Alanine Aminotransferase (ALT/SGPT) 15 U/L (12-78) Alkaline Phosphatase 167 U/L (46-116) C-Reactive Protein, Quantitative 10.9 mg/dL (0.00-0.90) Pro-B-Type Natriuretic Peptide > 61731 pg/mL (0-125) Total Protein 6.0 G/DL (6.4-8.2) Albumin 1.4 G/DL (3.4-5.0) Globulin 4.6 g/dL Albumin/Globulin Ratio 0.3 (1.0-2.7) Height (Feet): 5 Height (Inches): 3.00 Weight (Pounds): 128 Objective Physical Exam: Vitals: reviewed General: NAD HEENT: nc, at Neck: supple ++trach/vent Chest: clear breath sounds bilaterally Cardiovascular: RRR, no s3, s4 Abdomen: soft, nontender, nd +gtube Extremities: no cce, normal range of motion Neuro: alert Evan Muhammad MD Apr 12, 2020 11:45
[2020-04-12 12:00] VITALS: BP 140/76
--- NOTE | 2020-04-12 12:07 | Pulmonology Progress Note ---
Subjective ROS Limited/Unobtainable: Yes Interval Events: Hgb 7.2; transfusion today HEENT: Repors: no symptoms Respiratory: Reports: no symptoms Cardiovascular: Reports: no symptoms Gastrointestinal/Abdominal: Reports: diarrhea Allergies: Coded Allergies: No Known Allergies (Unverified , 10/10/17) All Systems: reviewed and negative except above Objective Last 24 Hour Vital Signs Date Time Temp Pulse Resp B/P (MAP) Pulse Ox O2 Delivery O2 Flow Rate FiO2 04/12/20 12:00 97.9 76 14 140/76 (97) 99 04/12/20 11:52 147/77 04/12/20 08:39 87 147/77 04/12/20 08:00 Mechanical Ventilator 04/12/20 08:00 98.7 87 18 141/88 (105) 100 04/12/20 07:46 73 04/12/20 07:22 30 04/12/20 06:22 99.0 04/12/20 05:42 147/77 04/12/20 04:00 87 04/12/20 04:00 Mechanical Ventilator 04/12/20 03:54 30 04/12/20 03:30 99.0 92 20 147/77 (100) 95 04/12/20 03:28 91 23 30 04/12/20 00:41 150/84 04/12/20 00:00 98.4 84 19 150/84 (106) 95 04/12/20 00:00 Mechanical Ventilator 04/12/20 00:00 83 04/12/20 00:00 30 04/11/20 23:04 80 30 30 04/11/20 22:29 97.2 04/11/20 20:30 97.9 70 20 147/66 (93) 98 04/11/20 20:00 30 04/11/20 20:00 97.2 77 18 166/74 (104) 95 04/11/20 20:00 77 04/11/20 20:00 Mechanical Ventilator 04/11/20 19:30 71 18 30 04/11/20 17:48 157/80 04/11/20 17:32 144/67 04/11/20 17:06 74 20 30 04/11/20 16:51 83 04/11/20 16:00 30 04/11/20 16:00 Mechanical Ventilator 04/11/20 16:00 98.2 85 18 157/80 (105) 94 04/11/20 15:09 87 22 30 04/11/20 13:07 77 19 30 Intake and Output 04/11/20 04/12/20 19:00 07:00 Intake Total 560 ml 440 ml Output Total 150 ml 200 ml Balance 410 ml 240 ml Intake Free Water 80 ml Tube Feeding 480 ml 440 ml Output Urine Total 150 ml 200 ml General Appearance: no acute distress HEENT: atraumatic, status post trach Respiratory: lungs clear Cardiovascular: normal rate, regular rhythm Extremities: other - edema bilateral Laboratory Tests 04/11/20 17:25: POC Whole Blood Glucose 78 04/12/20 04:08: White Blood Count 6.2, Red Blood Count 2.34L, Hemoglobin 7.2L, Hematocrit 21.3L, Mean Corpuscular Volume 91, Mean Corpuscular Hemoglobin 30.6, Mean Corpuscular Hemoglobin Concent 33.7, Red Cell Distribution Width 14.1, Platelet Count 358, Mean Platelet Volume 5.0L, Neutrophils (%) (Auto) , Lymphocytes (%) (Auto) , Monocytes (%) (Auto) , Eosinophils (%) (Auto) , Basophils (%) (Auto) , Sodium Level 137, Potassium Level 3.6, Chloride Level 101, Carbon Dioxide Level 27, Anion Gap 9, Blood Urea Nitrogen 111H, Creatinine 3.0H, Estimat Glomerular Filtration Rate 16.7, Glucose Level 91, Calcium Level 8.4L, Phosphorus Level 1.9L, Magnesium Level 2.5H, Total Bilirubin 0.4, Aspartate Amino Transf (AST/SGOT) 33, Alanine Aminotransferase (ALT/SGPT) 15, Alkaline Phosphatase 167H , C-Reactive Protein, Quantitative 10.9H, Pro-B-Type Natriuretic Peptide > 61084K, Total Protein 6.0L, Albumin 1.4L, Globulin 4.6, Albumin/Globulin Ratio 0.3L Current Medications Medications (Trade) Dose Ordered Sig/Penny Route PRN Reason Start Time Stop Time Status Last Admin Dose Admin Amlodipine Besylate (Norvasc) 5 mg DAILY ORAL 04/10/20 09:00 05/10/20 08:59 04/12/20 08:39 Aspirin (ASA) 81 mg DAILY GT 03/07/20 09:00 04/21/20 08:59 04/12/20 08:39 Chlorhexidine Gluconate (Ling-Hex 2%) 1 applic DAILY@2000 TOPIC 03/03/20 20:00 06/01/20 19:59 04/11/20 20:00 Dextrose (Dextrose 50%) 25 ml Q30M PRN IV Hypoglycemia 03/15/20 07:30 06/13/20 07:29 04/05/20 09:08 Dextrose (Dextrose 50%) 50 ml Q30M PRN IV Hypoglycemia 03/15/20 07:30 06/13/20 07:29 Famotidine (Pepcid) 20 mg BID GT 04/06/20 18:00 07/05/20 17:59 04/12/20 08:39 Hydralazine HCl (Apresoline) 25 mg Q6H PRN GT For High Blood Pressure 03/02/20 22:00 05/31/20 21:59 04/11/20 17:48 Hydralazine HCl (Apresoline) 50 mg Q6HR GT 04/07/20 00:00 07/06/20 00:00 04/12/20 11:52 Hydrocortisone (Anusol HC) 25 mg Q12HR RECTAL 03/23/20 21:00 06/21/20 08:59 04/12/20 08:39 Hydromorphone HCl (Dilaudid) 0.5 mg Q4H PRN IVP For Pain 04/09/20 22:30 04/16/20 22:29 04/12/20 11:52 Metoclopramide HCl (Reglan) 5 mg EVERY 6 HOURS NG 04/06/20 12:00 05/06/20 11:59 04/12/20 11:52 Sodium Hypochlorite (Dakin's Quarter Strength) 1 applic BEDTIME TOPIC 04/04/20 21:00 05/02/20 08:59 04/11/20 21:00 Sodium Phosphate 15 mm/Sodium Chloride 280 ml @ 70.273 mls/ hr ONCE IVPB 04/12/20 12:30 04/12/20 13:30 Sorbitol (sorbitoL) 30 ml Q6HR PRN ORAL Constipation 04/11/20 12:15 05/11/20 12:14 04/12/20 08:48 Sucralfate (Carafate) 1 gm EVERY 6 HOURS GT 03/17/20 18:00 06/09/20 08:59 04/12/20 11:52 Tramadol HCl (Ultram) 50 mg Q6H PRN GT Moderate Pain (Pain Scale 4-6) 04/09/20 22:30 04/16/20 22:29 04/12/20 08:48 Zinc Oxide (Zinc Oxide) 1 applic Q8HR TOPIC 03/25/20 22:00 06/22/20 17:59 04/12/20 05:42 Assessment/Plan Assessment/Plan 1. Chronic respiratory failure. - CT chest/abd/pelv: improving pleural effusion 2. Mechanical ventilation. - remains on 30% FiO2 saturating well - suction secretions as needed 3. Chronic tracheostomy. 4. Chronic G-tube. 5. Anemia. - s/p transfusion - stool OB positive (03/02, 03/03, 03/22) - off anticoags 6. Renal failure. 7. Leukocytosis and sepsis. - WBC now wnl 8. Sepsis UTI 9. Gram positive cocci bacteremia - f/u BCx negative for growth 10. COVID-19 negative 11. Diarrhea - C. diff neg 12. Hypoglycemia - resolved 13. Bradycardia - no urgent indication for pacemaker per cardio 14. Gastric ulcer - on PPI -No active bleeding - GI following 15. Pleural effusion - small; insufficient volume for safe thoracentesis - on HD 16. thoracic aortic aneurysm - noted on CT imaging - pt needs emergent transfer out to [facility] for CT surgery evaluation, primary MD aware - Pt might not be a candidate for TAA repair 17. Ascites - s/p paracentesis (2/3), 2.3L out 18. DVT ppx - on SCD -Venous duplex ultrasound of legs negative for DVT (03/25) Noted discharge planning Medically stable for discharge from pulmonary standpoint The care of this patient was discussed with my supervising physician Time spent for this encounter was approximately 31 minutes Cruz Wilson Apr 12, 2020 12:07
[2020-04-12] MEDS ORDERED: Sodium Phosphate 15 MM in NS 275 ML IVPB SCH (12:30)
--- NOTE | 2020-04-12 12:49 | Nephrology Progress Note ---
Assessment/Plan Problem List: (1) Renal failure (ARF), acute on chronic (2) Anemia (3) Hyponatremia (4) Respiratory failure Assessment (1) JAVIER (acute kidney injury) (2) Renal failure (ARF), acute on chronic (3) Feeding by G-tube (4) Tracheostomy in place (5) Electrolyte imbalance, hyponatremia (6) Anemia, severe (7) Respiratory failure, acute and chronic (8) history of elevated lipase, pancreatitis (9) Elevated troponin I (10) Sepsis Plan April 12: Labs reviewed. Low phosphorus replaced. Hemodialysis tomorrow. Continue per consultants. April 11: No labs drawn today. Will check lab tomorrow. Last dialysis April 08. Continue per consultants. April 10: Labs reviewed. Renal parameters stable. Hemoglobin higher. Hemodialysis as needed. Low potassium addressed. April 09: Dialyzed yesterday. Discussed with RN. Hemoglobin low. Suggest transfusion 1 unit of packed RBCs. April 08: Dialysis today. Blood pressure medication adjusted. Check lab tomorrow. Continue per consultants. April 07: Patient remains full code. Heart rate improved. Medication list reviewed. Labs reviewed. Will order dialysis for tomorrow. Continue per consultants. April 06: Full code. Intubated via trach on ventilator. FiO2 30%. Blood sugar stable. D50 will be discontinued. Continue feeding. Dialysis as needed. April 05: Remains in ICU. Low heart rate persists. Will initiate low-dose hydralazine with blood pressure parameters. Last dialysis April 03. Blood sugar stable on 30 mL of D10 hourly. GT feeding started. Continue to monitor electrolytes renal parameters and arrange for dialysis as needed. April 04: Patient currently in ICU due to low heart rate. Blood pressure is stable. Dialyzed yesterday. Labs reviewed. Renal parameters and electrolytes stable. Medication list reviewed. Continue per cardiology with regard to bradycardia. April 03: Labs reviewed. We will order dialysis today. Continue per co nsultants. April 02: Labs reviewed. No need for dialysis today. Continue to monitor renal parameters. April 01: Labs reviewed. Renal parameters stable. No dialysis today. Continue per consultants. March 31: No labs drawn today. Renal parameters stable as of yesterday. Will check lab tomorrow. Dialysis as needed. March 30: Labs reviewed. Low phosphorus addressed. Continue per PMD and consultants. Dialysis as needed. March 29: Dialyzed yesterday. No CHEM panel drawn today. We will continue to monitor renal parameters. Continue per consultants. March 28: Due for dialysis today. Labs reviewed. Stable from renal standpoint of view. March 27: Due for dialysis tomorrow. Labs reviewed. Medication list reviewed. Continue per current management. March 26: Last dialyzed March 24. Labs reviewed. Low phosphorus replaced. Continue to monitor renal parameters. Dialysis as needed. March 25: Dialyzed yesterday. Labs reviewed. Low phosphorus replaced. Continue per current management. Hemoglobin higher. March 24: Labs reviewed. Due for dialysis today. Continue per current management. Hemoglobin lower. Transfusion per percher. March 23: Labs reviewed. Dialyzed yesterday. Next dialysis tomorrow. Anemia management per percher. March 22: Labs reviewed. Due for dialysis today. Discussed with RN. Agree with discontinuation of the Norman catheter. Hemoglobin lower. Transfusion per percher. March 21: Labs reviewed. Will arrange for dialysis tomorrow. Continue per consultants. Will hold phosphorus binders at this time. March 20: Labs reviewed. Patient was dialyzed yesterday. Electrolyte abnormalities corrected. Continue per current management. March 19: Due for dialysis today. Abnormal labs noted. All will be corrected after dialysis. March 18: Labs reviewed. Will dialyze tomorrow. Patient being transfused today. Patient due for abdominal paracentesis. We will keep the Norman in. Continue to monitor renal parameters and dialyze as needed. March 17: No CHEM panel done today. CBC reviewed. Hemoglobin is lowering. Dialyzed yesterday. Will check lab tomorrow. Continue per consultants. March 16: Labs reviewed. Due for dialysis today. Hemoglobin 10.2 today. Continue to monitor renal parameters. March 15: Labs reviewed. Dialyzed March 13. Due for dialysis March 16. Hemoglobin lower. 1 unit of packed RBCs ordered. Per orders. March 14: No labs drawn today. Dialyzed yesterday. Full code. Will check lab tomorrow. Dialysis as needed. March 13: Labs reviewed. Due for dialysis today. Patient remains full code. Continue per current management. March 12: Labs reviewed. Dialyzed yesterday. Due for dialysis tomorrow. Discussed with RN. Patient full code. Continue per current management. March 11: Labs reviewed. Dialyzed this morning. Phosphorus binders dose adjusted. Continue per consultants. Continue to monitor renal parameters. CT: Extensive thoracoabdominal aortic dissection March 10: Labs reviewed. Will order dialysis tomorrow. Phosphorus binders added. Continue per consultants. March 09: No chemistry panel done today. Patient dialyzed yesterday. On dextrose 10% for hypoglycemia. We will check labs tomorrow. Dialysis as needed. March 08: Labs reviewed. Will order dialysis today. Blood sugar low. D10 50 cc an hour started. Continue as is. March 07: Labs reviewed. Dialyzed March 05 and March 06. Continue to monitor renal parameters and hemoglobin. Abnormal electrolytes addressed. IV fluids stopped. Per orders. March 06: Labs reviewed. Dialyzed yesterday. Will reorder dialysis for today. Continue to monitor renal parameters. Hemoglobin 8.4. Patient full code. March 05: Labs reviewed. Patient did not receive dialysis until this morning. Proceed with dialysis. Continue to monitor renal parameters and hemoglobin and hematocrit. March 04: Labs reviewed. Hemoglobin lower. Patient actively bleeding. Was not dialyzed yesterday. Due for GI endoscopy. Continue fluid challenge. Transfusion as needed. Dialysis today. March 03: Labs reviewed. Dialysis ordered. Blood pressure medication all discontinued due to hypotensive state. Albumin bolus given. Continue to monitor renal parameters. Medication list reviewed. Midodrin for low blood pressure ordered Subjective ROS Limited/Unobtainable: Yes Objective Objective Last 24 Hour Vital Signs Date Time Temp Pulse Resp B/P (MAP) Pulse Ox O2 Delivery O2 Flow Rate FiO2 04/12/20 12:00 30 04/12/20 12:00 Mechanical Ventilator 04/12/20 12:00 97.9 76 14 140/76 (97) 99 04/12/20 11:56 78 04/12/20 11:52 147/77 04/12/20 08:39 87 147/77 04/12/20 08:00 Mechanical Ventilator 04/12/20 08:00 98.7 87 18 141/88 (105) 100 04/12/20 07:46 73 04/12/20 07:22 30 04/12/20 06:22 99.0 04/12/20 05:42 147/77 04/12/20 04:00 87 04/12/20 04:00 Mechanical Ventilator 04/12/20 03:54 30 04/12/20 03:30 99.0 92 20 147/77 (100) 95 04/12/20 03:28 91 23 30 04/12/20 00:41 150/84 04/12/20 00:00 98.4 84 19 150/84 (106) 95 04/12/20 00:00 Mechanical Ventilator 04/12/20 00:00 83 04/12/20 00:00 30 04/11/20 23:04 80 30 30 04/11/20 22:29 97.2 04/11/20 20:30 97.9 70 20 147/66 (93) 98 04/11/20 20:00 30 04/11/20 20:00 97.2 77 18 166/74 (104) 95 04/11/20 20:00 77 04/11/20 20:00 Mechanical Ventilator 04/11/20 19:30 71 18 30 04/11/20 17:48 157/80 04/11/20 17:32 144/67 04/11/20 17:06 74 20 30 04/11/20 16:51 83 04/11/20 16:00 30 04/11/20 16:00 Mechanical Ventilator 04/11/20 16:00 98.2 85 18 157/80 (105) 94 04/11/20 15:09 87 22 30 04/11/20 13:07 77 19 30 Intake and Output 04/11/20 04/12/20 19:00 07:00 Intake Total 560 ml 440 ml Output Total 150 ml 200 ml Balance 410 ml 240 ml Intake Free Water 80 ml Tube Feeding 480 ml 440 ml Output Urine Total 150 ml 200 ml Current Medications Medications (Trade) Dose Ordered Sig/Penny Route PRN Reason Start Time Stop Time Status Last Admin Dose Admin Amlodipine Besylate (Norvasc) 5 mg DAILY ORAL 04/10/20 09:00 05/10/20 08:59 04/12/20 08:39 Aspirin (ASA) 81 mg DAILY GT 03/07/20 09:00 04/21/20 08:59 04/12/20 08:39 Chlorhexidine Gluconate (Ling-Hex 2%) 1 applic DAILY@1999 TOPIC 03/03/20 20:00 06/01/20 19:59 04/11/20 20:00 Dextrose (Dextrose 50%) 25 ml Q30M PRN IV Hypoglycemia 03/15/20 07:30 06/13/20 07:29 04/05/20 09:08 Dextrose (Dextrose 50%) 50 ml Q30M PRN IV Hypoglycemia 03/15/20 07:30 06/13/20 07:29 Famotidine (Pepcid) 20 mg BID GT 04/06/20 18:00 07/05/20 17:59 04/12/20 08:39 Hydralazine HCl (Apresoline) 25 mg Q6H PRN GT For High Blood Pressure 03/02/20 22:00 05/31/20 21:59 04/11/20 17:48 Hydralazine HCl (Apresoline) 50 mg Q6HR GT 04/07/20 00:00 07/06/20 00:00 04/12/20 11:52 Hydrocortisone (Anusol HC) 25 mg Q12HR RECTAL 03/23/20 21:00 06/21/20 08:59 04/12/20 08:39 Hydromorphone HCl (Dilaudid) 0.5 mg Q4H PRN IVP For Pain 04/09/20 22:30 04/16/20 22:29 04/12/20 11:52 Metoclopramide HCl (Reglan) 5 mg EVERY 6 HOURS NG 04/06/20 12:00 05/06/20 11:59 04/12/20 11:52 Sodium Hypochlorite (Dakin's Quarter Strength) 1 applic BEDTIME TOPIC 04/04/20 21:00 05/02/20 08:59 04/11/20 21:00 Sodium Phosphate 15 mm/Sodium Chloride 280 ml @ 70.273 mls/ hr ONCE IVPB 04/12/20 12:30 04/12/20 13:30 Sorbitol (sorbitoL) 30 ml Q6HR PRN ORAL Constipation 04/11/20 12:15 05/11/20 12:14 04/12/20 08:48 Sucralfate (Carafate) 1 gm EVERY 6 HOURS GT 03/17/20 18:00 06/09/20 08:59 04/12/20 11:52 Tramadol HCl (Ultram) 50 mg Q6H PRN GT Moderate Pain (Pain Scale 4-6) 04/09/20 22:30 04/16/20 22:29 04/12/20 08:48 Zinc Oxide (Zinc Oxide) 1 applic Q8HR TOPIC 03/25/20 22:00 06/22/20 17:59 04/12/20 05:42 Laboratory Tests 04/11/20 17:25: POC Whole Blood Glucose 78 04/12/20 04:08: White Blood Count 6.2, Red Blood Count 2.34L, Hemoglobin 7.2L, Hematocrit 21.3L, Mean Corpuscular Volume 91, Mean Corpuscular Hemoglobin 30.6, Mean Corpuscular Hemoglobin Concent 33.7, Red Cell Distribution Width 14.1, Platelet Count 358, Mean Platelet Volume 5.0L, Neutrophils (%) (Auto) , Lymphocytes (%) (Auto) , Monocytes (%) (Auto) , Eosinophils (%) (Auto) , Basophils (%) (Auto) , Sodium Level 137, Potassium Level 3.6, Chloride Level 101, Carbon Dioxide Level 27, Anion Gap 9, Blood Urea Nitrogen 111H, Creatinine 3.0H, Estimat Glomerular Filtration Rate 16.7, Glucose Level 91, Calcium Level 8.4L, Phosphorus Level 1.9L, Magnesium Level 2.5H, Total Bilirubin 0.4, Aspartate Amino Transf (AST/SGOT) 33, Alanine Aminotransferase (ALT/SGPT) 15, Alkaline Phosphatase 167H , C-Reactive Protein, Quantitative 10.9H, Pro-B-Type Natriuretic Peptide > 99133U, Total Protein 6.0L, Albumin 1.4L, Globulin 4.6, Albumin/Globulin Ratio 0.3L Height (Feet): 5 Height (Inches): 3.00 Weight (Pounds): 128 General Appearance: no apparent distress Cardiovascular: normal rate Respiratory/Chest: decreased breath sounds Abdomen: distended Johnny Houston MD Apr 12, 2020 12:49
--- NOTE | 2020-04-12 14:03 | Infectious Diseases Prog Note ---
Assessment/Plan 49yo F with: MDR Kleb pna bacteremia AMS Anemia to 1.9 on admission 03/02 Leukocytosis to 40, improving GPC bacteremia UTI Pneumonia c/b mod-large R pleural effusion and small L pleural effusion - compressive atelectasis Hypotension 03/02 BCx 1/2 +Staph epi, 12 +Staph haemolyticus (m/l skin colonizers) UA+, UCx >100k P.stuartii (S-angelo) & CRE P.mirablis (R-polyB/colistin, S- tobramycin, per [facility] is "intrinsically resistant to Avycaz/Zerbaxa" not clear why to me and they are unable to elaborate more) COVID rapid neg, PCR neg CXR: Tracheostomy again demonstrated. Interim placement of a right jugular tunneled dialysis catheter. There is infiltrate and volume loss in the left lung, particularly in the perihilar region, suprahilar region, and base. Consolidation at the lung base is similar. The perihilar and suprahilar region consolidation is new. The right lung pleural space are clear. C.dif neg 03/03 BCx NTD 03/06 BCx 2/2 +MDR Kleb pna (arnett-R, including R-polyB, colistin), 02/14 +E.faecium VRE (R-amp, S-linezolid) 03/08 BCx NTD 03/09 CT CAP: Very limited exam, as described, due to massive anasarca. This could limit visualization of the discrete fluid collection such as an abscess. Extensive thoracoabdominal aortic dissection, as described above. Current flap begins just distal to the left subclavian artery origin; per report, there is history of surgical repair so there may have been surgical repair of the ascending thoracic aorta. Bilateral pleural effusions, slightly smaller than on earlier exams. Extensive atelectasis as a result. Extensive pulmonary par enchymal disease as detailed above. This may reflect pneumonia or pulmonary edema or both. Evidence of pulmonary arterial hypertension, with dilatation of the pulmonary artery. Considerable ascites fluid. 03/11 Chest US: Small right, trace left pleural effusions, insufficient for safe thoracentesis AF Sepsis Leukocytosis Hypoxia on vent Pneumonia c/b L pleural effusion (recurrent, prior determined to be transudative) - s/p thora 01/21, 1050cc removed Volume overload, BNP >35,0000, likely 2/2 progressive CKD --> ESRD ?Pancreatitis, Lipase >2000 Acute anemia to 5s CONS bacteremia, ?contaminant Aflutter w/ RVR 01/13 BCx 2/2 +S. epi COVID PCR neg Flu neg CXR: Large left pleural effusion. Bilateral interstitial and airspace infiltrates versus edema MRSA nares neg 01/16 BCx NTD 01/17 BCx /2 +Staph auricularis (skin colonizer) 01/18 Resp cx +MDR CRE PsA (S-gent, I-colistin, R-polyB) (Intermediate to Zerbaxa, Resistant to Avycaz) 01/18 C.dif neg 01/18 CXR: Similar opacification of the left hemithorax likely representing combination of pleural effusion with atelectasis versus pneumonia/edema. Decreased but persistent hazy opacity throughout the right lung may represent edema versus infectious/inflammatory process. 01/20 BCx NTD 01/21 L thora 1050 cc removed, cx NTD 01/25 Wound cx from Gtube site +CRE Kleb pna (arnett-R) and MDR PsA (colonizers) 01/26 CT A/P: Limited exam, due to severe diffuse anasarca. Ascites. Bilateral pleural effusions. Basilar pulmonary atelectatic changes and consolidation. Gastrostomy. Atrophic left kidney with a nephroureteral stents again demonstrated. Possible retrococcygeal decubitus changes. Correlate with clinical findings, consider MRI if there is concern for sacral osteomyelitis. Right hip intertrochanteric fracture, also previously demonstrated. Left femoral dialysis catheter. Nonspecific right lobe liver lesion is unchanged, not well- demonstrated. ctasia bordering on aneurysmal dilatation and possible chronic dissection of the distal thoracic aorta, also previously described. JAVIER on CKD On previous admission Sep-Oct 2019 required HD for short period Going to start HD this admission again R/o COVID 01/14 COVID PCR neg 12/[address] [facility] per report H/o UTI 10/15 u/a wbc 30-40, nit neg, leuk +3; ucx ESBL P. mirablis, ESBL M. morganii //20 u/a wbc tnct, nit neg, leuk +3; ucx >100k MDR P. stuarti (S Ceftriaxone, Meropenem) 8/25 u/a wbc tnct, nit neg, leuk ; ucx >100k VRE 10/15/19 u/a wbc tnct; ucx >100k ESBL P. stuarti (S ertapenem, aztreonam) H/o transudative pleural effusion 11/28 Sp Thora (w: 169, PMN: 2%, L: 49% , LDH: 57, prot 2.5); cx Neg H/o PNA 10/15/19 Resp cx ESBL P. mirabilis, MDR P.a. (S only to Gent) 09/22 Resp cx + MDR PsA (S-gent; I-colistin; R-levofloxacin, Zosyn, angelo) 09/16/19 Sp cx ESBL P. mirablis H/o PPM site (pocket) infection and pocket abscess 2ry to S. epi-11/2018, sp >6weeks IV vancomycin 11/27 SP ABBIE: no evidence for vegetation on any of the valves 11/26/18 SP PPM removal: OR findings:The fibrous capsule enclosing the generator was then opened and there was a [id number] amount of yellowish fluid drainage. The generator was then removed.Atrial and ventricular leads were detached. The necrotic tissue of the pocket was then removed and the pocket was flushed with an antibiotic solution. Capsule, wound tissue and lead tip cx: Neg 2d echo: no vegetation seen US chest: 4.6 x 3.4 x 0.9 cm hypoechoic/anechoic area overlying left chest pacemaker power pack. This could represent either a discrete fluid collection or a focal area of very edematous tissue. Infected fluid pocket also possible. 11/18 Bcx 3/ S. epi; 11/20 Bcx neg; 11/24 Bcx Neg; 11/27 Bcx Neg CAD s/p CABG GERD/gastritis Afib HTN Dysphagia sp GT Aortic dissection s/p repair 2017 S/p PPM Parkinson's Disease Schizophrenia Anxiety COPD Chronic resp failure s/p trach Hx of tracheal bleeding [place] resident ([facility]) VRE and MRSA colonized Plan: Monitor off abx as she is stable 03/21 SP daptomycin #12, Avycaz #16 for VRE and MDR Kleb bacteremia 03/16 SP tobramycin IV #10 for resistant UTI 03/10/20 SP edson #4 empiric, vanco #9 01/31 SP angelo/inh tobra #10 for pna 01/23 SP vanco IV #10 given CONS/GPC bacteremia 01/16 SP Zosyn #2 01/14 SP dex 10mg in ED 12/10 SP IV Gentamycin #10 12/07 SP Meropenem #10 12/01 SP IV Vancomycin #5 11/28 Sp Cefepime #2 and IV Gentamycin x1 Monitor CBC/CMP Monitor temp curve, hemodynamics Monitor resp status D/w RN Thank you for this consult. [facility] will continue to follow. Subjective Allergies: Coded Allergies: No Known Allergies (Unverified , 10/10/17) afebrile no leukocytosis off abx Objective Last 24 Hour Vital Signs Date Time Temp Pulse Resp B/P (MAP) Pulse Ox O2 Delivery O2 Flow Rate FiO2 04/12/20 12:00 30 04/12/20 12:00 Mechanical Ventilator 04/12/20 12:00 97.9 76 14 140/76 (97) 99 04/12/20 11:56 78 04/12/20 11:52 147/77 04/12/20 08:39 87 147/77 04/12/20 08:00 Mechanical Ventilator 04/12/20 08:00 98.7 87 18 141/88 (105) 100 04/12/20 07:46 73 04/12/20 07:22 30 04/12/20 06:22 99.0 04/12/20 05:42 147/77 04/12/20 04:00 87 04/12/20 04:00 Mechanical Ventilator 04/12/20 03:54 30 04/12/20 03:30 99.0 92 20 147/77 (100) 95 04/12/20 03:28 91 23 30 04/12/20 00:41 150/84 04/12/20 00:00 98.4 84 19 150/84 (106) 95 04/12/20 00:00 Mechanical Ventilator 04/12/20 00:00 83 04/12/20 00:00 30 04/11/20 23:04 80 30 30 04/11/20 22:29 97.2 04/11/20 20:30 97.9 70 20 147/66 (93) 98 04/11/20 20:00 30 04/11/20 20:00 97.2 77 18 166/74 (104) 95 04/11/20 20:00 77 04/11/20 20:00 Mechanical Ventilator 04/11/20 19:30 71 18 30 04/11/20 17:48 157/80 04/11/20 17:32 144/67 04/11/20 17:06 74 20 30 04/11/20 16:51 83 04/11/20 16:00 30 04/11/20 16:00 Mechanical Ventilator 04/11/20 16:00 98.2 85 18 157/80 (105) 94 04/11/20 15:09 87 22 30 Height (Feet): 5 Height (Inches): 3.00 Weight (Pounds): 128 Gen: NAD on Vent satting well HEENT: NCAT, trach Pulm: BL chest rise on vent Abd: Soft, ND, +PEG Skin: No visible rashes Neuro: Awake, minimally interactive Lines: R chest Permacath dressing c/d/i Laboratory Tests Test 04/11/20 17:25 04/12/20 04:08 POC Whole Blood Glucose 78 MG/DL (74-106) White Blood Count 6.2 K/UL (4.8-10.8) Red Blood Count 2.34 M/UL (4.20-5.40) L Hemoglobin 7.2 G/DL (12.0-16.0) L Hematocrit 21.3 % (37.0-47.0) L Mean Corpuscular Volume 91 FL (80-99) Mean Corpuscular Hemoglobin 30.6 PG (27.0-31.0) Mean Corpuscular Hemoglobin Concent 33.7 G/DL (32.0-36.0) Red Cell Distribution Width 14.1 % (11.6-14.8) Platelet Count 358 K/UL (150-450) Mean Platelet Volume 5.0 FL (6.5-10.1) L Neutrophils (%) (Auto) % (45.0-75.0) Lymphocytes (%) (Auto) % (20.0-45.0) Monocytes (%) (Auto) % (1.0-10.0) Eosinophils (%) (Auto) % (0.0-3.0) Basophils (%) (Auto) % (0.0-2.0) Sodium Level 137 MMOL/L (136-145) Potassium Level 3.6 MMOL/L (3.5-5.1) Chloride Level 101 MMOL/L (98-107) Carbon Dioxide Level 27 MMOL/L (21-32) Anion Gap 9 mmol/L (5-15) Blood Urea Nitrogen 111 mg/dL (7-18) H Creatinine 3.0 MG/DL (0.55-1.30) H Estimat Glomerular Filtration Rate 16.7 mL/min (>60) Glucose Level 91 MG/DL (74-106) Calcium Level 8.4 MG/DL (8.5-10.1) L Phosphorus Level 1.9 MG/DL (2.5-4.9) L Magnesium Level 2.5 MG/DL (1.8-2.4) H Total Bilirubin 0.4 MG/DL (0.2-1.0) Aspartate Amino Transf (AST/SGOT) 33 U/L (15-37) Alanine Aminotransferase (ALT/SGPT) 15 U/L (12-78) Alkaline Phosphatase 167 U/L (46-116) H C-Reactive Protein, Quantitative 10.9 mg/dL (0.00-0.90) H Pro-B-Type Natriuretic Peptide > 88685 pg/mL (0-125) H Total Protein 6.0 G/DL (6.4-8.2) L Albumin 1.4 G/DL (3.4-5.0) L Globulin 4.6 g/dL Albumin/Globulin Ratio 0.3 (1.0-2.7) L Current Medications Medications (Trade) Dose Ordered Sig/Penny Route PRN Reason Start Time Stop Time Status Last Admin Dose Admin Amlodipine Besylate (Norvasc) 5 mg DAILY ORAL 04/10/20 09:00 05/10/20 08:59 04/12/20 08:39 Aspirin (ASA) 81 mg DAILY GT 03/07/20 09:00 04/21/20 08:59 04/12/20 08:39 Chlorhexidine Gluconate (Ling-Hex 2%) 1 applic DAILY@1999 TOPIC 03/03/20 20:00 06/01/20 19:59 04/11/20 20:00 Dextrose (Dextrose 50%) 25 ml Q30M PRN IV Hypoglycemia 03/15/20 07:30 06/13/20 07:29 04/05/20 09:08 Dextrose (Dextrose 50%) 50 ml Q30M PRN IV Hypoglycemia 03/15/20 07:30 06/13/20 07:29 Famotidine (Pepcid) 20 mg BID GT 04/06/20 18:00 07/05/20 17:59 04/12/20 08:39 Hydralazine HCl (Apresoline) 25 mg Q6H PRN GT For High Blood Pressure 03/02/20 22:00 05/31/20 21:59 04/11/20 17:48 Hydralazine HCl (Apresoline) 50 mg Q6HR GT 04/07/20 00:00 07/06/20 00:00 04/12/20 11:52 Hydrocortisone (Anusol HC) 25 mg Q12HR RECTAL 03/23/20 21:00 06/21/20 08:59 04/12/20 08:39 Hydromorphone HCl (Dilaudid) 0.5 mg Q4H PRN IVP For Pain 04/09/20 22:30 04/16/20 22:29 04/12/20 11:52 Metoclopramide HCl (Reglan) 5 mg EVERY 6 HOURS NG 04/06/20 12:00 05/06/20 11:59 04/12/20 11:52 Sodium Hypochlorite (Dakin's Quarter Strength) 1 applic BEDTIME TOPIC 04/04/20 21:00 05/02/20 08:59 04/11/20 21:00 Sorbitol (sorbitoL) 30 ml Q6HR PRN ORAL Constipation 04/11/20 12:15 05/11/20 12:14 04/12/20 08:48 Sucralfate (Carafate) 1 gm EVERY 6 HOURS GT 03/17/20 18:00 06/09/20 08:59 04/12/20 11:52 Tramadol HCl (Ultram) 50 mg Q6H PRN GT Moderate Pain (Pain Scale 4-6) 04/09/20 22:30 04/16/20 22:29 04/12/20 08:48 Zinc Oxide (Zinc Oxide) 1 applic Q8HR TOPIC 03/25/20 22:00 06/22/20 17:59 04/12/20 05:42 Doreen Nino M.D. Apr 12, 2020 14:03
[2020-04-12 15:36] VITALS: BP 122/65
--- NOTE | 2020-04-12 17:38 | Cardiology Progress Note ---
Subjective DATE OF SERVICE: Apr 12, 2020 BP control remains stable. Heart rates remain stable since dialysis resumed. CT scan revealed extensive thoracoabd aortic dissection- [place] Type B Objective Last 24 Hour Vital Signs Date Time Temp Pulse Resp B/P (MAP) Pulse Ox O2 Delivery O2 Flow Rate FiO2 04/12/20 17:25 122/65 04/12/20 16:00 30 04/12/20 16:00 Mechanical Ventilator 04/12/20 15:38 64 04/12/20 15:36 97.9 64 14 122/65 (84) 95 04/12/20 12:34 72 22 30 04/12/20 12:00 30 04/12/20 12:00 Mechanical Ventilator 04/12/20 12:00 97.9 76 14 140/76 (97) 99 04/12/20 11:56 78 04/12/20 11:52 147/77 04/12/20 11:12 78 22 30 04/12/20 08:51 71 14 30 04/12/20 08:39 87 147/77 04/12/20 08:00 Mechanical Ventilator 04/12/20 08:00 98.7 87 18 141/88 (105) 100 04/12/20 07:46 73 04/12/20 07:22 30 04/12/20 07:08 75 16 30 04/12/20 06:22 99.0 04/12/20 05:42 147/77 04/12/20 04:00 87 04/12/20 04:00 Mechanical Ventilator 04/12/20 03:54 30 04/12/20 03:30 99.0 92 20 147/77 (100) 95 04/12/20 03:28 91 23 30 04/12/20 00:41 150/84 04/12/20 00:00 98.4 84 19 150/84 (106) 95 04/12/20 00:00 Mechanical Ventilator 04/12/20 00:00 83 04/12/20 00:00 30 04/11/20 23:04 80 30 30 04/11/20 22:29 97.2 04/11/20 20:30 97.9 70 20 147/66 (93) 98 04/11/20 20:00 30 04/11/20 20:00 97.2 77 18 166/74 (104) 95 04/11/20 20:00 77 04/11/20 20:00 Mechanical Ventilator 04/11/20 19:30 71 18 30 04/11/20 17:48 157/80 HEENT: Thin Trach secretions RHYTHM: NSR, SB LUNGS: bilateral rhonchi - few, trach site clean CARDIAC: normal rate, regular rhythm, normal S1 and S2 ABDOMEN: normal bowel sounds, non tender, soft, G-Tube intact EXTREMITIES: normal range of motion, non-tender, normal inspection Laboratory Tests Test 04/12/20 04:08 White Blood Count 6.2 K/UL (4.8-10.8) Red Blood Count 2.34 M/UL (4.20-5.40) L Hemoglobin 7.2 G/DL (12.0-16.0) L Hematocrit 21.3 % (37.0-47.0) L Mean Corpuscular Volume 91 FL (80-99) Mean Corpuscular Hemoglobin 30.6 PG (27.0-31.0) Mean Corpuscular Hemoglobin Concent 33.7 G/DL (32.0-36.0) Red Cell Distribution Width 14.1 % (11.6-14.8) Platelet Count 358 K/UL (150-450) Mean Platelet Volume 5.0 FL (6.5-10.1) L Neutrophils (%) (Auto) % (45.0-75.0) Lymphocytes (%) (Auto) % (20.0-45.0) Monocytes (%) (Auto) % (1.0-10.0) Eosinophils (%) (Auto) % (0.0-3.0) Basophils (%) (Auto) % (0.0-2.0) Sodium Level 137 MMOL/L (136-145) Potassium Level 3.6 MMOL/L (3.5-5.1) Chloride Level 101 MMOL/L (98-107) Carbon Dioxide Level 27 MMOL/L (21-32) Anion Gap 9 mmol/L (5-15) Blood Urea Nitrogen 111 mg/dL (7-18) H Creatinine 3.0 MG/DL (0.55-1.30) H Estimat Glomerular Filtration Rate 16.7 mL/min (>60) Glucose Level 91 MG/DL (74-106) Calcium Level 8.4 MG/DL (8.5-10.1) L Phosphorus Level 1.9 MG/DL (2.5-4.9) L Magnesium Level 2.5 MG/DL (1.8-2.4) H Total Bilirubin 0.4 MG/DL (0.2-1.0) Aspartate Amino Transf (AST/SGOT) 33 U/L (15-37) Alanine Aminotransferase (ALT/SGPT) 15 U/L (12-78) Alkaline Phosphatase 167 U/L (46-116) H C-Reactive Protein, Quantitative 10.9 mg/dL (0.00-0.90) H Pro-B-Type Natriuretic Peptide > 17022 pg/mL (0-125) H Total Protein 6.0 G/DL (6.4-8.2) L Albumin 1.4 G/DL (3.4-5.0) L Globulin 4.6 g/dL Albumin/Globulin Ratio 0.3 (1.0-2.7) L Assessment/Plan Assessment/Plan Aortic dissections - Chase B Sepsis with recovered shock Sinus node disease with bradycardia Hx pacemaker explant Ischemic cardiomyopathy - hx CABG? Paroxysmal Atrial Fib Respiratory failure with trach Hx thoracic aortic aneurysm repair ESRD Anemia HypoPO4 Hypertension/HHD now with controlled BP Remains off beta blockers; would not resume despite benefit in setting of AAA with dissection, as she has repeatedly developed significant bradycardia. Avoid metoclopramide, which can aggravate bradycardia. Favor regular HD/UF in this setting. color television console monitor Vent support Antimicrobials DVT prophyl Advance antiHTN meds until BP optimized Non-surgical mngmt Deni Willams MD Apr 12, 2020 17:38
--- NOTE | 2020-04-12 18:42 | General Progress Note ---
Subjective Allergies: Coded Allergies: No Known Allergies (Unverified , 10/10/17) Subjective Above noted d/w RN tolerating TF - nephro at 40 last BM on Objective Last 24 Hour Vital Signs Date Time Temp Pulse Resp B/P (MAP) Pulse Ox O2 Delivery O2 Flow Rate FiO2 04/12/20 17:25 122/65 04/12/20 16:00 30 04/12/20 16:00 Mechanical Ventilator 04/12/20 15:38 64 04/12/20 15:36 97.9 64 14 122/65 (84) 95 04/12/20 15:16 67 17 30 04/12/20 12:34 72 22 30 04/12/20 12:00 30 04/12/20 12:00 Mechanical Ventilator 04/12/20 12:00 97.9 76 14 140/76 (97) 99 04/12/20 11:56 78 04/12/20 11:52 147/77 04/12/20 11:12 78 22 30 04/12/20 08:51 71 14 30 04/12/20 08:39 87 147/77 04/12/20 08:00 Mechanical Ventilator 04/12/20 08:00 98.7 87 18 141/88 (105) 100 04/12/20 07:46 73 04/12/20 07:22 30 04/12/20 07:08 75 16 30 04/12/20 06:22 99.0 04/12/20 05:42 147/77 04/12/20 04:00 87 04/12/20 04:00 Mechanical Ventilator 04/12/20 03:54 30 04/12/20 03:30 99.0 92 20 147/77 (100) 95 04/12/20 03:28 91 23 30 04/12/20 00:41 150/84 04/12/20 00:00 98.4 84 19 150/84 (106) 95 04/12/20 00:00 Mechanical Ventilator 04/12/20 00:00 83 04/12/20 00:00 30 04/11/20 23:04 80 30 30 04/11/20 22:29 97.2 04/11/20 20:30 97.9 70 20 147/66 (93) 98 04/11/20 20:00 30 04/11/20 20:00 97.2 77 18 166/74 (104) 95 04/11/20 20:00 77 04/11/20 20:00 Mechanical Ventilator 04/11/20 19:30 71 18 30 Intake and Output 04/11/20 04/12/20 19:00 07:00 Intake Total 560 ml 440 ml Output Total 150 ml 200 ml Balance 410 ml 240 ml Intake Free Water 80 ml Tube Feeding 480 ml 440 ml Output Urine Total 150 ml 200 ml Laboratory Tests 04/12/20 04:08: White Blood Count 6.2, Red Blood Count 2.34L, Hemoglobin 7.2L, Hematocrit 21.3L, Mean Corpuscular Volume 91, Mean Corpuscular Hemoglobin 30.6, Mean Corpuscular Hemoglobin Concent 33.7, Red Cell Distribution Width 14.1, Platelet Count 358, Mean Platelet Volume 5.0L, Neutrophils (%) (Auto) , Lymphocytes (%) (Auto) , Monocytes (%) (Auto) , Eosinophils (%) (Auto) , Basophils (%) (Auto) , Sodium Level 137, Potassium Level 3.6, Chloride Level 101, Carbon Dioxide Level 27, Anion Gap 9, Blood Urea Nitrogen 111H, Creatinine 3.0H, Estimat Glomerular Filtration Rate 16.7, Glucose Level 91, Calcium Level 8.4L, Phosphorus Level 1.9L, Magnesium Level 2.5H, Total Bilirubin 0.4, Aspartate Amino Transf (AST/SGOT) 33, Alanine Aminotransferase (ALT/SGPT) 15, Alkaline Phosphatase 167H , C-Reactive Protein, Quantitative 10.9H, Pro-B-Type Natriuretic Peptide > 46666G, Total Protein 6.0L, Albumin 1.4L, Globulin 4.6, Albumin/Globulin Ratio 0.3L Height (Feet): 5 Height (Inches): 3.00 Weight (Pounds): 128 Objective Elderly woman NCAT (+) trach coarse BS RR abd soft NT ND, (+) GT no edema eyes open, looks at MD Assessment/Plan Assessment/Plan: Assessment/Plan Problem List: (1) Hx of CABG ICD Codes: Z95.1 - Presence of aortocoronary bypass graft SNOMED: 235333500, 331898806 (2) History of tracheostomy ICD Codes: Z98.890 - Other specified postprocedural states SNOMED: 422966626, 701178008 (3) Dysphagia, PEG (percutaneous endoscopic gastrostomy) status ICD Codes: Z93.1 - Gastrostomy status SNOMED: 598285649, 709335589 (4) Renal failure ICD Codes: N19 - Unspecified kidney failure SNOMED: 48564617, 600068234 (5) Severe anemia ICD Codes: D64.9 - Anemia, unspecified (6) Constipation Assessment/Plan: s/p EGD gastric ulcer on ppi and carafate fu H&H GTF laxative Edmund Farris MD Apr 12, 2020 18:42
[2020-04-12] MEDS ORDERED: Sorbitol Solution UD 30ml ORAL SCH (18:45)
--- NOTE | 2020-04-12 19:12 | NUR ---
NURSE HAND-OFF REPORT: Important Events on Shift:stable, no bm, endorsed to noc nurse to give sorbitol Q6H RTC until patient pass bm. Patient Status: full code Diet: tube feeds Pending Orders: HD tomorrow 04/13, [facility] called c/o Charlie Pending Results/Labs:[] Pending MD notification:[] Latest Vital Signs: Temperature 97.9 , Pulse 64 , B/P 122 /65 , Respiratory Rate 14 , O2 SAT 95 , Mechanical Ventilator, O2 Flow Rate . Vital Sign Comment: stable EKG Rhythm: Sinus Rhythm Rhythm change?: N MD Notified?: N -Dr Екатерина HATFIELD Response: Order Received& Read Back Latest [place] Fall Score: 50 Fall Risk: High Risk Safety Measures: Call light Within Reach, Bed Alarm Zone 2, Side Rails Side Rails x2, Bed position Low and Locked. Fall Precautions: Yellow Socks Report given to seun ramesh.
--- NOTE | 2020-04-12 19:15 | NUR ---
NURSE NOTES: Got report from Cornelia ZIMMERMAN. Pt in stable condition. Pt A+Ox3. Pt running Sinus Rhythm on the monitor. Pt resting in bed comfortably. No s/s of distress or discomfort noted. Pt afebrile. Pt on tube feeding tolerating well Nepro@40. Pt on vent at ordered rate. Skin issues noted. VSS. Bed in low and locked position, call light within reach, bedside table within reach. Continue to monitor.
[2020-04-12 20:00] VITALS: BP 148/77
[2020-04-12] MEDS: Dyna-Hex 2% Top Sol 2oz TOPIC SCH (20:44)
[2020-04-12] MEDS: Dakin's 0.125% Soln (Quarter Strength) 16oz TOPIC SCH (20:45)
[2020-04-12] MEDS: HydrALAZINE 25mg tab GT PRN (22:05)
[2020-04-13] VITALS (7 sets, daily range): BP systolic 137–157; BP diastolic 67–78
[2020-04-13] MEDS: Sucralfate 1gm tab GT SCH ×5 (00:07→17:05)
[2020-04-13] MEDS: Metoclopramide 10mg/10ml Liq NG SCH ×4 (00:07→17:05)
[2020-04-13] MEDS: HydrALAZINE 50mg tab GT SCH ×4 (00:07→17:06)
[2020-04-13] MEDS: Zinc Oxide Oint 2oz TOPIC SCH ×3 (05:34→21:29)
--- NOTE | 2020-04-13 06:24 | Hematology/Onc Progress Note ---
Assessment/Plan Assessment/Plan # Leukocytosis, now with likely bacteremia, as per ID care --> Cxr: : Large left abiola consolidation/effusion --> wbc 30-->40-->27->30->29-->35->32-->28-->21->10.2-->6.6-->7,2 --> ABX angelo/vanc-->tobra/edson/vanc-->dapto/ceftazadine->off abx --> smear reviewed --> ID recs are noted # Anemia of chronic disease due to underlying chronic medical issues, multifactorial --> Anemia workup has been reviewed, cw acd --> No evidence of hemolysis is noted, peripheral smear has been reviewed. --> Hgb goal >7. Transfuse prn. --> Epogen required in prior --> Medications have been reviewed --> low threshold for gi evaluation in case has occult + --> hgb 1.9-->5-->7.1-->8.8-->8.1->7.5-> 8. 2-->6.8-->9.2-->8.4->7.7-->7.1-->8.8->8.7-->8.2-->8 --> 1 unit prbc1, 2 units 01/15, 03/02, 03/18, 03/24 --> gi eval as needed # Elevated tumor markers, cea and ca 19.9 --> reviewed prior 01/27/20 cat scan a/p --> no masses noted, hold off further extensive w/u # Thrombocytopenia likely reactive v medication induced --> plt 200-->129->91-->86->100->78-->86-->87-->125->135 --> transfuse as needed --> r/o dic, has been ruled out --> anticoag as needed # Coagulopathy with inr 1.5 --> consider vit k/ffp as needed preprocedure --> labs noted # Aortic dissection as seen on Ct ==> when stable, consider transfer hloc # JAVIER initially >2 --> on ivfs --> per renal is on HD # Elevated d-dimer, likely infection related --> venous duplex prior neg --> in prior neg # Dysphagia s/p peg --> as per gi # Thoracic aortic dissection --> s/p repair early 2017 # Chronic Resp failure -> s/p trach/vent # Psychiatric history on ativan/haldol # [facility] resident # Dvt ppx --> scds The timing of this note does not necessarily reflect the time of the patient was seen. Greatly appreciate consultation. Subjective HEENT: Denies: no symptoms, eye pain, blurred vision, tearing, double vision, ear pain, ear discharge, nose pain, nose congestion, throat pain, throat swelling, mouth pain, mouth swelling, other Cardiovascular: Denies: no symptoms, chest pain, edema, irregular heart rate, lightheadedness, palpitations, syncope, other Respiratory: Denies: no symptoms, cough, shortness of breath, SOB with excertion, SOB at rest, sputum, wheezing, other Gastrointestinal/Abdominal: Denies: no symptoms, abdomen distended, abdominal pain, black stools, tarry stools, blood in stool, constipated, diarrhea, difficulty swallowing, nausea, poor appetite, poor fluid intake, rectal bleeding, vomiting, other Genitourinary: Denies: no symptoms, burning, discharge, frequency, flank pain, hematuria, incontinence, pain, urgency, other Neurologic/Psychiatric: Denies: no symptoms, anxiety, depressed, emotional problems, headache, numbness, paresthesia, pre-existing deficit, seizure, tingling, tremors, weakness, other Endocrine: Denies: no symptoms, excessive sweating, flushing, intolerance to cold, intolerance to heat, increased hunger, increased thirst, increased urine, unexplained weight gain, unexplained weight loss, other Allergies: Coded Allergies: No Known Allergies (Unverified , 10/10/17) Subjective 03/04 nv, for 1 unit transfusion this am as hgb remains low, wbc better 03/05 egd was done did show large nonbleeding gastric ulcer, high tumor markers 03/06 nv, with davis overnight, bp remains stable, with occult + stool, dw Rn 03/09 nv, remains stable, on vanc/tobra/edson, meds reviewed, no bleeding 03/10 nv, on vent, no bleeding, receiving abx, no night sweats 03/11 nv, dw surgeon and pcp, with aortic dissection to transfer oc when stable 03/12 nv, labs reviewed, wbc 21, hgb 7.5, otherwise is comfortable 03/13 nv, labs noted, no bleeding, wbc 13, hgb improved, meds reviewed 03/15 nv, meds reviewed, labs noted, no bleeding, on vent 03/16 nv/tv, peg, meds noted, hgb remains stable, improved to 10 03/17 s/p egd, with gastric ulceration noted, hgb stable 03/18 labs noted, hgb 6.8, to get 1 unit prbc, meds reviewed 03/19 hgb 9.2, plt 78, no hemoptysis, is comfortable 03/20 labs reviewed, meds noted, no bleeding, roman rn 03/22 wound treatment, vent, with gtube, labs reviewed, roman rn 03/23 labs reviewed, meds noted, no bleeding, with gt 03/24 large bm overnight that was bloody, hgb 7.1, roman rn 03/25 labs pending this am, comfortable, nsr, meds noted 03/26 nv, vent, with gt, labs reviewed, hgb 8.8 03/27 nv, vent, labs reviewed, with gt, hgb stable 03/29 nv, vent, labs pending, meds reviewed, no bleeding 03/30 nv, t/v, with gt feeds, labs reviewed, meds noted 03/31 nv, t/v, oral secretions were suctioned, meds reviewed 04/01 nv, t/v, labs are reviewed, meds noted, hgb 7.4 04/02 gt leaking, facial grimacing, labs noted, no bleeding, roman rn 04/03 nv, labs noted, no bleeding, roman rn, h/h stable 04/04 nv, labs reviewed, gtube replacement as per Dr. Mccauley 04/05 nv, labs reviewed, meds noted no bleeding, roman rn 04/06 nv, labs, meds noted, no bleeding, on vt, no new changes 04/07 nv, meds reviewed, labs noted, no bleeding, bp was high on, transferred to icu 04/08 nv, labs noted, no bleeding, evaluated at the bedside 04/09 nv, labs noted, no bleeding, hgb 7.6, repeat pending 04/10 nv is on gt feeds, labs reviewed, hgb better 04/12 nv, gt feeds, asleep, no night sweats, meds reviewed 04/13 sr, afebrile, nv, with gt, no bleeding, labs noted, sdu Objective Objective Current Medications Medications (Trade) Dose Ordered Sig/Penny Route PRN Reason Start Time Stop Time Status Last Admin Dose Admin Amlodipine Besylate (Norvasc) 5 mg DAILY ORAL 04/10/20 09:00 05/10/20 08:59 04/12/20 08:39 Aspirin (ASA) 81 mg DAILY GT 03/07/20 09:00 04/21/20 08:59 04/12/20 08:39 Chlorhexidine Gluconate (Ling-Hex 2%) 1 applic DAILY@1999 TOPIC 03/03/20 20:00 06/01/20 19:59 04/12/20 20:44 Dextrose (Dextrose 50%) 25 ml Q30M PRN IV Hypoglycemia 03/15/20 07:30 06/13/20 07:29 04/05/20 09:08 Dextrose (Dextrose 50%) 50 ml Q30M PRN IV Hypoglycemia 03/15/20 07:30 06/13/20 07:29 Famotidine (Pepcid) 20 mg BID GT 04/06/20 18:00 07/05/20 17:59 04/12/20 17:26 Hydralazine HCl (Apresoline) 25 mg Q6H PRN GT For High Blood Pressure 03/02/20 22:00 05/31/20 21:59 04/12/20 22:05 Hydralazine HCl (Apresoline) 50 mg Q6HR GT 04/07/20 00:00 07/06/20 00:00 04/13/20 00:07 Hydrocortisone (Anusol HC) 25 mg Q12HR RECTAL 03/23/20 21:00 06/21/20 08:59 04/12/20 20:44 Hydromorphone HCl (Dilaudid) 0.5 mg Q4H PRN IVP For Pain 04/09/20 22:30 04/16/20 22:29 04/12/20 22:14 Metoclopramide HCl (Reglan) 5 mg EVERY 6 HOURS NG 04/06/20 12:00 05/06/20 11:59 04/13/20 05:34 Sodium Hypochlorite (Dakin's Quarter Strength) 1 applic BEDTIME TOPIC 04/04/20 21:00 05/02/20 08:59 04/12/20 20:45 Sorbitol (sorbitoL) 30 ml Q6HR PRN ORAL Constipation 04/11/20 12:15 05/11/20 12:14 04/12/20 20:44 Sucralfate (Carafate) 1 gm EVERY 6 HOURS GT 03/17/20 18:00 06/09/20 08:59 04/13/20 00:07 Tramadol HCl (Ultram) 50 mg Q6H PRN GT Moderate Pain (Pain Scale 4-6) 04/09/20 22:30 04/16/20 22:29 04/12/20 08:48 Zinc Oxide (Zinc Oxide) 1 applic Q8HR TOPIC 03/25/20 22:00 06/22/20 17:59 04/13/20 05:34 Last 24 Hour Vital Signs Date Time Temp Pulse Resp B/P (MAP) Pulse Ox O2 Delivery O2 Flow Rate FiO2 04/13/20 05:34 140/75 04/13/20 05:22 86 17 30 04/13/20 04:20 Mechanical Ventilator 04/13/20 04:20 30 04/13/20 04:00 91 04/13/20 04:00 98.2 90 18 140/75 (96) 95 04/13/20 03:24 92 18 30 04/13/20 01:30 84 18 30 04/13/20 01:00 137/67 (90) 04/13/20 00:07 154/73 04/13/20 00:00 30 04/13/20 00:00 75 04/13/20 00:00 Mechanical Ventilator 04/13/20 00:00 98.4 75 18 154/73 (100) 95 04/12/20 23:09 76 18 30 04/12/20 22:49 98.6 04/12/20 22:05 148/77 04/12/20 21:34 74 18 30 04/12/20 20:00 80 04/12/20 20:00 30 04/12/20 20:00 98.6 80 18 148/77 (100) 95 04/12/20 20:00 Mechanical Ventilator 04/12/20 19:35 78 19 30 04/12/20 17:25 122/65 04/12/20 16:00 30 04/12/20 16:00 Mechanical Ventilator 04/12/20 15:38 64 04/12/20 15:36 97.9 64 14 122/65 (84) 95 04/12/20 15:16 67 17 30 04/12/20 12:34 72 22 30 04/12/20 12:00 30 04/12/20 12:00 Mechanical Ventilator 04/12/20 12:00 97.9 76 14 140/76 (97) 99 04/12/20 11:56 78 04/12/20 11:52 147/77 04/12/20 11:12 78 22 30 04/12/20 08:51 71 14 30 04/12/20 08:39 87 147/77 04/12/20 08:00 Mechanical Ventilator 04/12/20 08:00 98.7 87 18 141/88 (105) 100 04/12/20 07:46 73 04/12/20 07:22 30 04/12/20 07:08 75 16 30 04/12/20 06:22 99.0 04/12/20 05:42 147/77 04/12/20 04:00 87 04/12/20 04:00 Mechanical Ventilator 04/12/20 03:54 30 04/12/20 03:30 99.0 92 20 147/77 (100) 95 04/12/20 03:28 91 23 30 04/12/20 00:41 150/84 04/12/20 00:00 98.4 84 19 150/84 (106) 95 04/12/20 00:00 Mechanical Ventilator 04/12/20 00:00 83 04/12/20 00:00 30 04/11/20 23:04 80 30 30 04/11/20 22:29 97.2 04/11/20 20:30 97.9 70 20 147/66 (93) 98 04/11/20 20:00 30 04/11/20 20:00 97.2 77 18 166/74 (104) 95 04/11/20 20:00 77 04/11/20 20:00 Mechanical Ventilator 04/11/20 19:30 71 18 30 04/11/20 17:48 157/80 04/11/20 17:32 144/67 04/11/20 17:06 74 20 30 04/11/20 16:51 83 04/11/20 16:00 30 04/11/20 16:00 Mechanical Ventilator 04/11/20 16:00 98.2 85 18 157/80 (105) 94 04/11/20 15:09 87 22 30 04/11/20 13:07 77 19 30 04/11/20 12:06 144/67 04/11/20 12:00 Mechanical Ventilator 04/11/20 12:00 30 04/11/20 11:42 72 04/11/20 11:30 98.2 85 18 144/67 (92) 94 04/11/20 11:05 78 17 30 04/11/20 09:02 79 20 30 04/11/20 08:21 77 166/74 04/11/20 08:00 Mechanical Ventilator 04/11/20 08:00 30 04/11/20 08:00 98.2 77 166/74 (104) 04/11/20 07:42 84 04/11/20 07:14 70 21 30 Intake and Output 04/12/20 04/13/20 19:00 07:00 Intake Total 650.819 ml Output Total 250 ml 300 ml Balance 400.819 ml -300 ml Intake Free Water 80 ml IV Total 210.819 ml Tube Feeding 360 ml Output Urine Total 250 ml 300 ml # Bowel Movements 2 Labs Test 04/11/20 11:20 04/11/20 17:25 04/12/20 04:08 POC Whole Blood Glucose 98 MG/DL (74-106) 78 MG/DL (74-106) White Blood Count 6.2 K/UL (4.8-10.8) Red Blood Count 2.34 M/UL (4.20-5.40) Hemoglobin 7.2 G/DL (12.0-16.0) Hematocrit 21.3 % (37.0-47.0) Mean Corpuscular Volume 91 FL (80-99) Mean Corpuscular Hemoglobin 30.6 PG (27.0-31.0) Mean Corpuscular Hemoglobin Concent 33.7 G/DL (32.0-36.0) Red Cell Distribution Width 14.1 % (11.6-14.8) Platelet Count 358 K/UL (150-450) Mean Platelet Volume 5.0 FL (6.5-10.1) Neutrophils (%) (Auto) % (45.0-75.0) Lymphocytes (%) (Auto) % (20.0-45.0) Monocytes (%) (Auto) % (1.0-10.0) Eosinophils (%) (Auto) % (0.0-3.0) Basophils (%) (Auto) % (0.0-2.0) Sodium Level 137 MMOL/L (136-145) Potassium Level 3.6 MMOL/L (3.5-5.1) Chloride Level 101 MMOL/L (98-107) Carbon Dioxide Level 27 MMOL/L (21-32) Anion Gap 9 mmol/L (5-15) Blood Urea Nitrogen 111 mg/dL (7-18) Creatinine 3.0 MG/DL (0.55-1.30) Estimat Glomerular Filtration Rate 16.7 mL/min (>60) Glucose Level 91 MG/DL (74-106) Calcium Level 8.4 MG/DL (8.5-10.1) Phosphorus Level 1.9 MG/DL (2.5-4.9) Magnesium Level 2.5 MG/DL (1.8-2.4) Total Bilirubin 0.4 MG/DL (0.2-1.0) Aspartate Amino Transf (AST/SGOT) 33 U/L (15-37) Alanine Aminotransferase (ALT/SGPT) 15 U/L (12-78) Alkaline Phosphatase 167 U/L (46-116) C-Reactive Protein, Quantitative 10.9 mg/dL (0.00-0.90) Pro-B-Type Natriuretic Peptide > 35294 pg/mL (0-125) Total Protein 6.0 G/DL (6.4-8.2) Albumin 1.4 G/DL (3.4-5.0) Globulin 4.6 g/dL Albumin/Globulin Ratio 0.3 (1.0-2.7) Height (Feet): 5 Height (Inches): 3.00 Weight (Pounds): 128 Objective Physical Exam: Vitals: reviewed General: NAD HEENT: nc, at Neck: supple ++trach/vent Chest: clear breath sounds bilaterally Cardiovascular: RRR, no s3, s4 Abdomen: soft, nontender, nd +gtube Extremities: no cce, normal range of motion Neuro: alert Evan Muhammad MD Apr 13, 2020 06:24
--- NOTE | 2020-04-13 06:59 | General Progress Note ---
Subjective ROS Limited/Unobtainable: No Allergies: Coded Allergies: No Known Allergies (Unverified , 10/10/17) Objective Last 24 Hour Vital Signs Date Time Temp Pulse Resp B/P (MAP) Pulse Ox O2 Delivery O2 Flow Rate FiO2 04/13/20 05:34 140/75 04/13/20 05:22 86 17 30 04/13/20 04:20 Mechanical Ventilator 04/13/20 04:20 30 04/13/20 04:00 91 04/13/20 04:00 98.2 90 18 140/75 (96) 95 04/13/20 03:24 92 18 30 04/13/20 01:30 84 18 30 04/13/20 01:00 137/67 (90) 04/13/20 00:07 154/73 04/13/20 00:00 30 04/13/20 00:00 75 04/13/20 00:00 Mechanical Ventilator 04/13/20 00:00 98.4 75 18 154/73 (100) 95 04/12/20 23:09 76 18 30 04/12/20 22:49 98.6 04/12/20 22:05 148/77 04/12/20 21:34 74 18 30 04/12/20 20:00 80 04/12/20 20:00 30 04/12/20 20:00 98.6 80 18 148/77 (100) 95 04/12/20 20:00 Mechanical Ventilator 04/12/20 19:35 78 19 30 04/12/20 17:25 122/65 04/12/20 16:00 30 04/12/20 16:00 Mechanical Ventilator 04/12/20 15:38 64 04/12/20 15:36 97.9 64 14 122/65 (84) 95 04/12/20 15:16 67 17 30 04/12/20 12:34 72 22 30 04/12/20 12:00 30 04/12/20 12:00 Mechanical Ventilator 04/12/20 12:00 97.9 76 14 140/76 (97) 99 04/12/20 11:56 78 04/12/20 11:52 147/77 04/12/20 11:12 78 22 30 04/12/20 08:51 71 14 30 04/12/20 08:39 87 147/77 04/12/20 08:00 Mechanical Ventilator 04/12/20 08:00 98.7 87 18 141/88 (105) 100 04/12/20 07:46 73 04/12/20 07:22 30 04/12/20 07:08 75 16 30 Intake and Output 04/12/20 04/13/20 19:00 07:00 Intake Total 650.819 ml Output Total 250 ml 300 ml Balance 400.819 ml -300 ml Intake Free Water 80 ml IV Total 210.819 ml Tube Feeding 360 ml Output Urine Total 250 ml 300 ml # Bowel Movements 2 Height (Feet): 5 Height (Inches): 3.00 Weight (Pounds): 128 General Appearance: no apparent distress EENT: normal ENT inspection Neck: supple Cardiovascular: normal rate Respiratory/Chest: decreased breath sounds Abdomen: hypoactive bowel sounds Extremities: non-tender Assessment/Plan Problem List: (1) Hx of CABG ICD Codes: Z95.1 - Presence of aortocoronary bypass graft SNOMED: 416297681, 154333690 (2) History of tracheostomy ICD Codes: Z98.890 - Other specified postprocedural states SNOMED: 634543900, 847592016 (3) PEG (percutaneous endoscopic gastrostomy) status ICD Codes: Z93.1 - Gastrostomy status SNOMED: 806351211, 066223260 (4) Renal failure ICD Codes: N19 - Unspecified kidney failure SNOMED: 35872691, 174389659 (5) Severe anemia ICD Codes: D64.9 - Anemia, unspecified SNOMED: 453794700 Assessment/Plan: s/p EGD gastric ulcer carafate fu H&H GTF fu labs supportive care had 2 bm, brown stool add prevacid Inder Mccauley MD Apr 13, 2020 06:59
--- NOTE | 2020-04-13 07:00 | NUR ---
NURSE NOTES: Received report from ERASMO Dos Santos. Pt in bed awake and able to follow simple comment. IV site in L wrist 18G SL patent and asymptomatic. Bed in locked and lowest position. Side railsx3 up for safety. On JENNIFER mattress. Pt trach connected to vent setting with [id number] peep 5. Right subclavian perma cath patent and intact. No respiratory distress noted. Will continue to plan care.
--- NOTE | 2020-04-13 07:00 | NUR ---
NURSE HAND-OFF REPORT: Important Events on Shift:[BM X 2] Patient Status: [STABLE] Diet: [NEPRO@40] Pending Orders: [] Pending Results/Labs:[] Pending MD notification:[] Latest Vital Signs: Temperature 98.2 , Pulse 86 , B/P 140 /75 , Respiratory Rate 17 , O2 SAT 95 , Mechanical Ventilator, O2 Flow Rate . Vital Sign Comment: [] EKG Rhythm: Sinus Rhythm Rhythm change?: N MD Notified?: N -Dr Екатерина HATFIELD Response: Order Received& Read Back Latest [place] Fall Score: 50 Fall Risk: High Risk Safety Measures: Call light Within Reach, Bed Alarm Zone 2, Side Rails Side Rails x2, Bed position Low and Locked. Fall Precautions: Yellow Socks Report given to [MIN RN].
--- NOTE | 2020-04-13 08:41 | NUR ---
RD ASSESSMENT & RECOMMENDATIONS SEE CARE ACTIVITY FOR COMPLETE ASSESSMENT DAILY ESTIMATED NEEDS: Needs based on Critical care, wound, renal dysfunction 59.5 kg 27-22 kcals/kg 3672-4344 total kcals W/ HD (1.5-2.0) g protein/kg 89-119 g total protein Fluid per MD NUTRITION DIAGNOSIS: * Swallowing difficulty R/T dysphagia, respiratory status as evidenced by vent dep via trach, GT Dep. * Increase kcal and pro needs r/t wound healing, renal dysfunction as evidenced by h/o stage 4 sacral wound, and HD. CURRENT TF: Nepro @40ml/hr x 24 hrs ENTERAL NUTRITION RECOMMENDATIONS: Nepro @40ml/hr x 24 hrs + Prosource 1pkt BID to provide 960ml, 1728kcal, 78g+22g prot, 779ml free water * Maintain goal rate of 40ml/hr. * When tolerating at goal, add Prosource 1pkt BID to better meet increased protein needs (additional 11g prot/each) * Water flush per MD/ HOB over 30 degrees ADDITIONAL RECOMMENDATIONS: * Calibrated bed scale, wts fluctuating * Monitor for HD continuity- last HD 04/08, pending HD 04/13 * WC eval-> w/ TF orders add FRANKLIN in 4oz H2O BID via GT Vit C per nephrology, add Nephrovite 1 tab daily. * Monitor BGs closely for hypoglycemia On Bedside BG checks * Monitor lytes, replete as needed (K low)
--- NOTE | 2020-04-13 08:56 | Infectious Diseases Prog Note ---
Assessment/Plan 49yo F with: MDR Kleb pna bacteremia AMS Anemia to 1.9 on admission 03/02 Leukocytosis to 40, improving GPC bacteremia UTI Pneumonia c/b mod-large R pleural effusion and small L pleural effusion - compressive atelectasis Hypotension 03/02 BCx 1/2 +Staph epi, 12 +Staph haemolyticus (m/l skin colonizers) UA+, UCx >100k P.stuartii (S-angelo) & CRE P.mirablis (R-polyB/colistin, S- tobramycin, per [facility] is "intrinsically resistant to Avycaz/Zerbaxa" not clear why to me and they are unable to elaborate more) COVID rapid neg, PCR neg CXR: Tracheostomy again demonstrated. Interim placement of a right jugular tunneled dialysis catheter. There is infiltrate and volume loss in the left lung, particularly in the perihilar region, suprahilar region, and base. Consolidation at the lung base is similar. The perihilar and suprahilar region consolidation is new. The right lung pleural space are clear. C.dif neg 03/03 BCx NTD 03/06 BCx 2/2 +MDR Kleb pna (arnett-R, including R-polyB, colistin), 02/14 +E.faecium VRE (R-amp, S-linezolid) 03/08 BCx NTD 03/09 CT CAP: Very limited exam, as described, due to massive anasarca. This could limit visualization of the discrete fluid collection such as an abscess. Extensive thoracoabdominal aortic dissection, as described above. Current flap begins just distal to the left subclavian artery origin; per report, there is history of surgical repair so there may have been surgical repair of the ascending thoracic aorta. Bilateral pleural effusions, slightly smaller than on earlier exams. Extensive atelectasis as a result. Extensive pulmonary par enchymal disease as detailed above. This may reflect pneumonia or pulmonary edema or both. Evidence of pulmonary arterial hypertension, with dilatation of the pulmonary artery. Considerable ascites fluid. 03/11 Chest US: Small right, trace left pleural effusions, insufficient for safe thoracentesis AF Sepsis Leukocytosis Hypoxia on vent Pneumonia c/b L pleural effusion (recurrent, prior determined to be transudative) - s/p thora 01/21, 1050cc removed Volume overload, BNP >35,0000, likely 2/2 progressive CKD --> ESRD ?Pancreatitis, Lipase >2000 Acute anemia to 5s CONS bacteremia, ?contaminant Aflutter w/ RVR 01/13 BCx 2/2 +S. epi COVID PCR neg Flu neg CXR: Large left pleural effusion. Bilateral interstitial and airspace infiltrates versus edema MRSA nares neg 01/16 BCx NTD 01/17 BCx /2 +Staph auricularis (skin colonizer) 01/18 Resp cx +MDR CRE PsA (S-gent, I-colistin, R-polyB) (Intermediate to Zerbaxa, Resistant to Avycaz) 01/18 C.dif neg 01/18 CXR: Similar opacification of the left hemithorax likely representing combination of pleural effusion with atelectasis versus pneumonia/edema. Decreased but persistent hazy opacity throughout the right lung may represent edema versus infectious/inflammatory process. 01/20 BCx NTD 01/21 L thora 1050 cc removed, cx NTD 01/25 Wound cx from Gtube site +CRE Kleb pna (arnett-R) and MDR PsA (colonizers) 01/26 CT A/P: Limited exam, due to severe diffuse anasarca. Ascites. Bilateral pleural effusions. Basilar pulmonary atelectatic changes and consolidation. Gastrostomy. Atrophic left kidney with a nephroureteral stents again demonstrated. Possible retrococcygeal decubitus changes. Correlate with clinical findings, consider MRI if there is concern for sacral osteomyelitis. Right hip intertrochanteric fracture, also previously demonstrated. Left femoral dialysis catheter. Nonspecific right lobe liver lesion is unchanged, not well- demonstrated. ctasia bordering on aneurysmal dilatation and possible chronic dissection of the distal thoracic aorta, also previously described. JAVIER on CKD On previous admission Sep-Oct 2019 required HD for short period Going to start HD this admission again R/o COVID 01/14 COVID PCR neg 12/29 neg at [facility] per report H/o UTI 10/15 u/a wbc 30-40, nit neg, leuk +3; ucx ESBL P. mirablis, ESBL M. morganii //20 u/a wbc tnct, nit neg, leuk +3; ucx >100k MDR P. stuarti (S Ceftriaxone, Meropenem) 8/25 u/a wbc tnct, nit neg, leuk ; ucx >100k VRE 10/15/19 u/a wbc tnct; ucx >100k ESBL P. stuarti (S ertapenem, aztreonam) H/o transudative pleural effusion 11/28 Sp Thora (w: 169, PMN: 2%, L: 49% , LDH: 57, prot 2.5); cx Neg H/o PNA 10/15/19 Resp cx ESBL P. mirabilis, MDR P.a. (S only to Gent) 09/22 Resp cx + MDR PsA (S-gent; I-colistin; R-levofloxacin, Zosyn, angelo) 09/16/19 Sp cx ESBL P. mirablis H/o PPM site (pocket) infection and pocket abscess 2ry to S. epi-11/2018, sp >6weeks IV vancomycin 11/27 SP ABBIE: no evidence for vegetation on any of the valves 11/26/18 SP PPM removal: OR findings:The fibrous capsule enclosing the generator was then opened and there was a [id number] amount of yellowish fluid drainage. The generator was then removed.Atrial and ventricular leads were detached. The necrotic tissue of the pocket was then removed and the pocket was flushed with an antibiotic solution. Capsule, wound tissue and lead tip cx: Neg 2d echo: no vegetation seen US chest: 4.6 x 3.4 x 0.9 cm hypoechoic/anechoic area overlying left chest pacemaker power pack. This could represent either a discrete fluid collection or a focal area of very edematous tissue. Infected fluid pocket also possible. 11/18 Bcx 3/4 S. epi; 11/20 Bcx neg; 11/24 Bcx Neg; 11/27 Bcx Neg CAD s/p CABG GERD/gastritis Afib HTN Dysphagia sp GT Aortic dissection s/p repair 2017 S/p PPM Parkinson's Disease Schizophrenia Anxiety COPD Chronic resp failure s/p trach Hx of tracheal bleeding [place] resident ([facility]) VRE and MRSA colonized Plan: Monitor off abx 03/21 SP daptomycin #12, Avycaz #16 for VRE and MDR Kleb bacteremia 03/16 SP tobramycin IV #10 for resistant UTI 03/10/20 SP edson #4 empiric, vanco #9 01/31 SP angelo/inh tobra #10 for pna 01/23 SP vanco IV #10 given CONS/GPC bacteremia 01/16 SP Zosyn #2 01/14 SP dex 10mg in ED 12/10 SP IV Gentamycin #10 12/07 SP Meropenem #10 12/01 SP IV Vancomycin #5 11/28 Sp Cefepime #2 and IV Gentamycin x1 Monitor CBC/CMP Monitor temp curve, hemodynamics Monitor resp status D/w RN Thank you for this consult. [facility] will continue to follow. Subjective Allergies: Coded Allergies: No Known Allergies (Unverified , 10/10/17) Afebrile No Leukocytosis On vent Objective Last 24 Hour Vital Signs Date Time Temp Pulse Resp B/P (MAP) Pulse Ox O2 Delivery O2 Flow Rate FiO2 04/13/20 08:38 80 18 30 04/13/20 08:00 87 04/13/20 08:00 99.5 92 18 151/71 (97) 94 04/13/20 07:46 78 18 30 04/13/20 05:34 140/75 04/13/20 05:22 86 17 30 04/13/20 04:20 Mechanical Ventilator 04/13/20 04:20 30 04/13/20 04:00 91 04/13/20 04:00 98.2 90 18 140/75 (96) 95 04/13/20 03:24 92 18 30 04/13/20 01:30 84 18 30 04/13/20 01:00 137/67 (90) 04/13/20 00:07 154/73 04/13/20 00:00 30 04/13/20 00:00 75 04/13/20 00:00 Mechanical Ventilator 04/13/20 00:00 98.4 75 18 154/73 (100) 95 04/12/20 23:09 76 18 30 04/12/20 22:49 98.6 04/12/20 22:05 148/77 04/12/20 21:34 74 18 30 04/12/20 20:00 80 04/12/20 20:00 30 04/12/20 20:00 98.6 80 18 148/77 (100) 95 04/12/20 20:00 Mechanical Ventilator 04/12/20 19:35 78 19 30 04/12/20 17:25 122/65 04/12/20 16:00 30 04/12/20 16:00 Mechanical Ventilator 04/12/20 15:38 64 04/12/20 15:36 97.9 64 14 122/65 (84) 95 04/12/20 15:16 67 17 30 04/12/20 12:34 72 22 30 04/12/20 12:00 30 04/12/20 12:00 Mechanical Ventilator 04/12/20 12:00 97.9 76 14 140/76 (97) 99 04/12/20 11:56 78 04/12/20 11:52 147/77 04/12/20 11:12 78 22 30 Height (Feet): 5 Height (Inches): 3.00 Weight (Pounds): 128 Gen: NAD on Vent 30% O2 satting well HEENT: NCAT, trach Pulm: BL chest rise on vent Abd: Soft, ND, +PEG Skin: No visible rashes Neuro: Awake, minimally interactive Lines: R chest Permacath dressing c/d/i Current Medications Medications (Trade) Dose Ordered Sig/Penny Route PRN Reason Start Time Stop Time Status Last Admin Dose Admin Amlodipine Besylate (Norvasc) 5 mg DAILY ORAL 04/10/20 09:00 05/10/20 08:59 04/12/20 08:39 Aspirin (ASA) 81 mg DAILY GT 03/07/20 09:00 04/21/20 08:59 04/12/20 08:39 Chlorhexidine Gluconate (Ling-Hex 2%) 1 applic DAILY@2000 TOPIC 03/03/20 20:00 06/01/20 19:59 04/12/20 20:44 Dextrose (Dextrose 50%) 25 ml Q30M PRN IV Hypoglycemia 03/15/20 07:30 06/13/20 07:29 04/05/20 09:08 Dextrose (Dextrose 50%) 50 ml Q30M PRN IV Hypoglycemia 03/15/20 07:30 06/13/20 07:29 Famotidine (Pepcid) 20 mg BID GT 04/06/20 18:00 07/05/20 17:59 04/12/20 17:26 Hydralazine HCl (Apresoline) 25 mg Q6H PRN GT For High Blood Pressure 03/02/20 22:00 05/31/20 21:59 04/12/20 22:05 Hydralazine HCl (Apresoline) 50 mg Q6HR GT 04/07/20 00:00 07/06/20 00:00 04/13/20 00:07 Hydrocortisone (Anusol HC) 25 mg Q12HR RECTAL 03/23/20 21:00 06/21/20 08:59 04/12/20 20:44 Hydromorphone HCl (Dilaudid) 0.5 mg Q4H PRN IVP For Pain 04/09/20 22:30 04/16/20 22:29 04/12/20 22:14 Lansoprazole (Prevacid) 30 mg BID GT 04/13/20 09:00 05/13/20 08:59 Metoclopramide HCl (Reglan) 5 mg EVERY 6 HOURS NG 04/06/20 12:00 05/06/20 11:59 04/13/20 05:34 Sodium Hypochlorite (Dakin's Quarter Strength) 1 applic BEDTIME TOPIC 04/04/20 21:00 05/02/20 08:59 04/12/20 20:45 Sorbitol (sorbitoL) 30 ml Q6HR PRN ORAL Constipation 04/11/20 12:15 05/11/20 12:14 04/12/20 20:44 Sucralfate (Carafate) 1 gm EVERY 6 HOURS GT 03/17/20 18:00 06/09/20 08:59 04/13/20 00:07 Tramadol HCl (Ultram) 50 mg Q6H PRN GT Moderate Pain (Pain Scale 4-6) 04/09/20 22:30 04/16/20 22:29 04/12/20 08:48 Zinc Oxide (Zinc Oxide) 1 applic Q8HR TOPIC 03/25/20 22:00 06/22/20 17:59 04/13/20 05:34 Deni Gilbert MD Apr 13, 2020 08:56
[2020-04-13] MEDS: Hydrocortisone 25mg supp RECTAL SCH ×2 (09:00→20:40)
[2020-04-13] MEDS: Aspirin Baby 81mg GT SCH (09:00)
--- NOTE | 2020-04-13 09:15 | Pulmonology Progress Note ---
Subjective ROS Limited/Unobtainable: No Interval Events: Hgb 7.2; s/p transfusion Constitutional: Reports: fever, other - Tmax=99.5 HEENT: Repors: no symptoms Respiratory: Reports: no symptoms Cardiovascular: Reports: no symptoms Gastrointestinal/Abdominal: Reports: diarrhea Allergies: Coded Allergies: No Known Allergies (Unverified , 10/10/17) All Systems: reviewed and negative except above Objective Last 24 Hour Vital Signs Date Time Temp Pulse Resp B/P (MAP) Pulse Ox O2 Delivery O2 Flow Rate FiO2 04/13/20 08:38 80 18 30 04/13/20 08:00 87 04/13/20 08:00 99.5 92 18 151/71 (97) 94 04/13/20 07:46 78 18 30 04/13/20 05:34 140/75 04/13/20 05:22 86 17 30 04/13/20 04:20 Mechanical Ventilator 04/13/20 04:20 30 04/13/20 04:00 91 04/13/20 04:00 98.2 90 18 140/75 (96) 95 04/13/20 03:24 92 18 30 04/13/20 01:30 84 18 30 04/13/20 01:00 137/67 (90) 04/13/20 00:07 154/73 04/13/20 00:00 30 04/13/20 00:00 75 04/13/20 00:00 Mechanical Ventilator 04/13/20 00:00 98.4 75 18 154/73 (100) 95 04/12/20 23:09 76 18 30 04/12/20 22:49 98.6 04/12/20 22:05 148/77 04/12/20 21:34 74 18 30 04/12/20 20:00 80 04/12/20 20:00 30 04/12/20 20:00 98.6 80 18 148/77 (100) 95 04/12/20 20:00 Mechanical Ventilator 04/12/20 19:35 78 19 30 04/12/20 17:25 122/65 04/12/20 16:00 30 04/12/20 16:00 Mechanical Ventilator 04/12/20 15:38 64 04/12/20 15:36 97.9 64 14 122/65 (84) 95 04/12/20 15:16 67 17 30 04/12/20 12:34 72 22 30 04/12/20 12:00 30 04/12/20 12:00 Mechanical Ventilator 04/12/20 12:00 97.9 76 14 140/76 (97) 99 04/12/20 11:56 78 04/12/20 11:52 147/77 04/12/20 11:12 78 22 30 Intake and Output 04/12/20 04/13/20 19:00 07:00 Intake Total 650.819 ml Output Total 250 ml 300 ml Balance 400.819 ml -300 ml Intake Free Water 80 ml IV Total 210.819 ml Tube Feeding 360 ml Output Urine Total 250 ml 300 ml # Bowel Movements 2 General Appearance: no acute distress HEENT: atraumatic, status post trach Respiratory: lungs clear Cardiovascular: normal rate, regular rhythm Extremities: other - edema bilateral Current Medications Medications (Trade) Dose Ordered Sig/Penny Route PRN Reason Start Time Stop Time Status Last Admin Dose Admin Amlodipine Besylate (Norvasc) 5 mg DAILY ORAL 04/10/20 09:00 05/10/20 08:59 04/12/20 08:39 Aspirin (ASA) 81 mg DAILY GT 03/07/20 09:00 04/21/20 08:59 04/12/20 08:39 Chlorhexidine Gluconate (Ling-Hex 2%) 1 applic DAILY@1999 TOPIC 03/03/20 20:00 06/01/20 19:59 04/12/20 20:44 Dextrose (Dextrose 50%) 25 ml Q30M PRN IV Hypoglycemia 03/15/20 07:30 06/13/20 07:29 04/05/20 09:08 Dextrose (Dextrose 50%) 50 ml Q30M PRN IV Hypoglycemia 03/15/20 07:30 06/13/20 07:29 Famotidine (Pepcid) 20 mg BID GT 04/06/20 18:00 07/05/20 17:59 04/12/20 17:26 Hydralazine HCl (Apresoline) 25 mg Q6H PRN GT For High Blood Pressure 03/02/20 22:00 05/31/20 21:59 04/12/20 22:05 Hydralazine HCl (Apresoline) 50 mg Q6HR GT 04/07/20 00:00 07/06/20 00:00 04/13/20 00:07 Hydrocortisone (Anusol HC) 25 mg Q12HR RECTAL 03/23/20 21:00 06/21/20 08:59 04/12/20 20:44 Hydromorphone HCl (Dilaudid) 0.5 mg Q4H PRN IVP For Pain 04/09/20 22:30 04/16/20 22:29 04/12/20 22:14 Lansoprazole (Prevacid) 30 mg BID GT 04/13/20 09:00 05/13/20 08:59 Metoclopramide HCl (Reglan) 5 mg EVERY 6 HOURS NG 04/06/20 12:00 05/06/20 11:59 04/13/20 05:34 Sodium Hypochlorite (Dakin's Quarter Strength) 1 applic BEDTIME TOPIC 04/04/20 21:00 05/02/20 08:59 04/12/20 20:45 Sorbitol (sorbitoL) 30 ml Q6HR PRN ORAL Constipation 04/11/20 12:15 05/11/20 12:14 04/12/20 20:44 Sucralfate (Carafate) 1 gm EVERY 6 HOURS GT 03/17/20 18:00 06/09/20 08:59 04/13/20 00:07 Tramadol HCl (Ultram) 50 mg Q6H PRN GT Moderate Pain (Pain Scale 4-6) 04/09/20 22:30 04/16/20 22:29 04/12/20 08:48 Zinc Oxide (Zinc Oxide) 1 applic Q8HR TOPIC 03/25/20 22:00 06/22/20 17:59 04/13/20 05:34 Assessment/Plan Assessment/Plan 1. Chronic respiratory failure. - CT chest/abd/pelv: improving pleural effusion 2. Mechanical ventilation. - remains on 30% FiO2 saturating well - suction secretions as needed 3. Chronic tracheostomy. 4. Chronic G-tube. 5. Anemia. - s/p transfusion - stool OB positive (03/02, 03/03, 03/22) - off anticoags 6. Renal failure. 7. Leukocytosis and sepsis. - WBC now wnl 8. Sepsis UTI 9. Gram positive cocci bacteremia - f/u BCx negative for growth 10. COVID-19 negative 11. Diarrhea - C. diff neg 12. Hypoglycemia - resolved 13. Bradycardia - no urgent indication for pacemaker per cardio 14. Gastric ulcer - on PPI -No active bleeding - GI following 15. Pleural effusion - small; insufficient volume for safe thoracentesis - on HD 16. thoracic aortic aneurysm - noted on CT imaging - pt needs emergent transfer out to [facility] for CT surgery evaluation, primary MD aware - Pt might not be a candidate for TAA repair 17. Ascites - s/p paracentesis (2/3), 2.3L out 18. DVT ppx - on SCD -Venous duplex ultrasound of legs negative for DVT (03/25) Noted discharge planning to [place] Medically stable for discharge from pulmonary standpoint The care of this patient was discussed with my supervising physician Time spent for this encounter was approximately 31 minutes Cruz Wilson Apr 13, 2020 09:15
[2020-04-13] MEDS: traMADol 50mg tab GT PRN (09:33)
--- NOTE | 2020-04-13 11:22 | Nephrology Progress Note ---
Assessment/Plan Problem List: (1) Renal failure (ARF), acute on chronic (2) Anemia (3) Hyponatremia (4) Respiratory failure Assessment (1) JAVIER (acute kidney injury) (2) Renal failure (ARF), acute on chronic (3) Feeding by G-tube (4) Tracheostomy in place (5) Electrolyte imbalance, hyponatremia (6) Anemia, severe (7) Respiratory failure, acute and chronic (8) history of elevated lipase, pancreatitis (9) Elevated troponin I (10) Sepsis Plan April 13: No labs drawn today. Due for hemodialysis today. Will check lab tomorrow. Continue per consultants. April 12: Labs reviewed. Low phosphorus replaced. Hemodialysis tomorrow. Continue per consultants. April 11: No labs drawn today. Will check lab tomorrow. Last dialysis April 08. Continue per consultants. April 10: Labs reviewed. Renal parameters stable. Hemoglobin higher. Hemodialysis as needed. Low potassium addressed. April 09: Dialyzed yesterday. Discussed with RN. Hemoglobin low. Suggest transfusion 1 unit of packed RBCs. April 08: Dialysis today. Blood pressure medication adjusted. Check lab tomorrow. Continue per consultants. April 07: Patient remains full code. Heart rate improved. Medication list reviewed. Labs reviewed. Will order dialysis for tomorrow. Continue per consultants. April 06: Full code. Intubated via trach on ventilator. FiO2 30%. Blood sugar stable. D50 will be discontinued. Continue feeding. Dialysis as needed. April 05: Remains in ICU. Low heart rate persists. Will initiate low-dose hydralazine with blood pressure parameters. Last dialysis April 03. Blood sugar stable on 30 mL of D10 hourly. GT feeding started. Continue to monitor electrolytes renal parameters and arrange for dialysis as needed. April 04: Patient currently in ICU due to low heart rate. Blood pressure is stable. Dialyzed yesterday. Labs reviewed. Renal parameters and electrolytes stable. Medication list reviewed. Continue per cardiology with regard to bradycardia. April 03: Labs reviewed. We will order dialysis today. Continue per consultants. April 02: Labs reviewed. No need for dialysis today. Continue to monitor renal parameters. April 01: Labs reviewed. Renal parameters stable. No dialysis today. Continue per consultants. March 31: No labs drawn today. Renal parameters stable as of yesterday. Will check lab tomorrow. Dialysis as needed. March 30: Labs reviewed. Low phosphorus addressed. Continue per PMD and consultants. Dialysis as needed. March 29: Dialyzed yesterday. No CHEM panel drawn today. We will continue to monitor renal parameters. Continue per consultants. March 28: Due for dialysis today. Labs reviewed. Stable from renal standpo int of view. March 27: Due for dialysis tomorrow. Labs reviewed. Medication list reviewed. Continue per current management. March 26: Last dialyzed March 24. Labs reviewed. Low phosphorus replaced. Continue to monitor renal parameters. Dialysis as needed. March 25: Dialyzed yesterday. Labs reviewed. Low phosphorus replaced. Continue per current management. Hemoglobin higher. March 24: Labs reviewed. Due for dialysis today. Continue per current management. Hemoglobin lower. Transfusion per catalytic converter operator. March 23: Labs reviewed. Dialyzed yesterday. Next dialysis tomorrow. Anemia management per catalytic converter operator. March 22: Labs reviewed. Due for dialysis today. Discussed with RN. Agree with discontinuation of the Norman catheter. Hemoglobin lower. Transfusion per catalytic converter operator. March 21: Labs reviewed. Will arrange for dialysis tomorrow. Continue per consultants. Will hold phosphorus binders at this time. March 20: Labs reviewed. Patient was dialyzed yesterday. Electrolyte abnormalities corrected. Continue per current management. March 19: Due for dialysis today. Abnormal labs noted. All will be corrected after dialysis. March 18: Labs reviewed. Will dialyze tomorrow. Patient being transfused today. Patient due for abdominal paracentesis. We will keep the Norman in. Continue to monitor renal parameters and dialyze as needed. March 17: No CHEM panel done today. CBC reviewed. Hemoglobin is lowering. Dialyzed yesterday. Will check lab tomorrow. Continue per consultants. March 16: Labs reviewed. Due for dialysis today. Hemoglobin 10.2 today. Continue to monitor renal parameters. March 15: Labs reviewed. Dialyzed March 13. Due for dialysis March 16. Hemoglobin lower. 1 unit of packed RBCs ordered. Per orders. March 14: No labs drawn today. Dialyzed yesterday. Full code. Will check lab tomorrow. Dialysis as needed. March 13: Labs reviewed. Due for dialysis today. Patient remains full code. Continue per current management. March 12: Labs reviewed. Dialyzed yesterday. Due for dialysis tomorrow. Discussed with RN. Patient full code. Continue per current management. March 11: Labs reviewed. Dialyzed this morning. Phosphorus binders dose adjusted. Continue per consultants. Continue to monitor renal parameters. CT: Extensive thoracoabdominal aortic dissection March 10: Labs reviewed. Will order dialysis tomorrow. Phosphorus binders added. Continue per consultants. March 09: No chemistry panel done today. Patient dialyzed yesterday. On dextrose 10% for hypoglycemia. We will check labs tomorrow. Dialysis as needed. March 08: Labs reviewed. Will order dialysis today. Blood sugar low. D10 50 cc an hour started. Continue as is. March 07: Labs reviewed. Dialyzed March 05 and March 06. Continue to monitor renal parameters and hemoglobin. Abnormal electrolytes addressed. IV fluids stopped. Per orders. March 06: Labs reviewed. Dialyzed yesterday. Will reorder dialysis for today. Continue to monitor renal parameters. Hemoglobin 8.4. Patient full code. March 05: Labs reviewed. Patient did not receive dialysis until this morning. Proceed with dialysis. Continue to monitor renal parameters and hemoglobin and hematocrit. March 04: Labs reviewed. Hemoglobin lower. Patient actively bleeding. Was not dialyzed yesterday. Due for GI endoscopy. Continue fluid challenge. Transfusion as needed. Dialysis today. March 03: Labs reviewed. Dialysis ordered. Blood pressure medication all discontinued due to hypotensive state. Albumin bolus given. Continue to monitor renal parameters. Medication list reviewed. Midodrin for low blood pressure ordered Subjective ROS Limited/Unobtainable: Yes Objective Objective Last 24 Hour Vital Signs Date Time Temp Pulse Resp B/P (MAP) Pulse Ox O2 Delivery O2 Flow Rate FiO2 04/13/20 09:00 80 151/71 04/13/20 08:38 80 18 30 04/13/20 08:00 87 04/13/20 08:00 99.5 92 18 151/71 (97) 94 04/13/20 07:46 78 18 30 04/13/20 05:34 140/75 04/13/20 05:22 86 17 30 04/13/20 04:20 Mechanical Ventilator 04/13/20 04:20 30 04/13/20 04:00 91 04/13/20 04:00 98.2 90 18 140/75 (96) 95 04/13/20 03:24 92 18 30 04/13/20 01:30 84 18 30 04/13/20 01:00 137/67 (90) 04/13/20 00:07 154/73 04/13/20 00:00 30 04/13/20 00:00 75 04/13/20 00:00 Mechanical Ventilator 04/13/20 00:00 98.4 75 18 154/73 (100) 95 04/12/20 23:09 76 18 30 04/12/20 22:49 98.6 04/12/20 22:05 148/77 04/12/20 21:34 74 18 30 04/12/20 20:00 80 04/12/20 20:00 30 04/12/20 20:00 98.6 80 18 148/77 (100) 95 04/12/20 20:00 Mechanical Ventilator 04/12/20 19:35 78 19 30 04/12/20 17:25 122/65 04/12/20 16:00 30 04/12/20 16:00 Mechanical Ventilator 04/12/20 15:38 64 04/12/20 15:36 97.9 64 14 122/65 (84) 95 04/12/20 15:16 67 17 30 04/12/20 12:34 72 22 30 04/12/20 12:00 30 04/12/20 12:00 Mechanical Ventilator 04/12/20 12:00 97.9 76 14 140/76 (97) 99 04/12/20 11:56 78 04/12/20 11:52 147/77 Intake and Output 04/12/20 04/13/20 19:00 07:00 Intake Total 650.819 ml Output Total 250 ml 300 ml Balance 400.819 ml -300 ml Intake Free Water 80 ml IV Total 210.819 ml Tube Feeding 360 ml Output Urine Total 250 ml 300 ml # Bowel Movements 2 No CHEM panel drawn today Height (Feet): 5 Height (Inches): 3.00 Weight (Pounds): 128 General Appearance: no apparent distress EENT: other - Trach to vent Cardiovascular: tachycardia Respiratory/Chest: decreased breath sounds Abdomen: distended Johnny Houston MD Apr 13, 2020 11:22
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
[2020-04-13] MEDS: HYDROmorphone 1mg/ml Carpuject IVP PRN ×2 (12:27→20:44)
--- NOTE | 2020-04-13 12:56 | NUR ---
NURSE NOTES:WOUND CARE FOLLOW-UP NOTES: PT presented on admission with Peristomal dermatitis of GT site, Full Thickness sacral pressure injury. Peristomal dermatitis resolving. Peristomal skin is pink and is conforming around Gastrostomy tube with only minimal amt formula noted to drsg upon removal. Full Thickness Sacral Pressure Injury with undermined borders.(L)9.3cm x (W)12.5cmx (D)1.4cm, Undermining clockwise 9-3 by 2.5cm @2'oclock. Base of wound is beefy red with areas of bone and fascia exposure. Detached borders at 9-3o'clock that re-epithelialized. Small amt sanguineous exudate noted. No odor noted.Marginal dark skin tone without erythema or induration periwound. Incontinence associated dermatitis has resolved. Perineum and perianal areas are pink and dry. Labia majora and medial /upper R and L thighs are edematous. Scattered small purpuric areas noted to R and L labia majora. Necrotic Lesion medial L upper thigh. No erythema or changes in skin temp noted at site or surrounding areas of lesion. R heel is boggy with non-blanchable erythema. L heel is boggy but blanchable. Tx.Plan: Wash Peristomal GT site with soap and water. Pat dry. Apply Zinc Oxide Paste , Apply Maxsorb Alginate. Cover with Optifoam drsg. Change Daily and PRN. Apply Moisture Barrier Paste to Perineum and perianal areas with each incontinence care. Cleanse Sacral wound with Dakin's 0.25% annie. Loosely pack wound with Dakin's moistened Kerlix(Attention to undermined borders).Apply Moisture Barrier Paste along borders. Cover with Optifoam drsg Daily and prn. Apply Cavilon Skin Barrier to Both heels. Cover each heel with Optifoam drsg. Change every 7 days and prn. Cover Bony prominences as needed with Optifoam drsg. Reposition at least every 2hours or as tolerated. Off-load heels with Pillow. APM/JENNIFER Mattress overlay.
--- NOTE | 2020-04-13 17:27 | NUR ---
*-*DISCHARGE PLANNING*-* PATIENT HAS BEEN REFERRED TO: [facility] P: [phone]
--- NOTE | 2020-04-13 19:20 | NUR ---
NURSE NOTES: Pt report received from Chelsey ZIMMERMAN. pt condition remains unchanged. pt is alert and oriented times 2, able to respond yes or no to simple questions. pt is trach vented, sating 98% O2, no acute resp distress noted. pt bed is low, locked, armed, call light within reach, bed rails up times 3. will follow plan of care.
--- NOTE | 2020-04-13 19:28 | NUR ---
NURSE HAND-OFF REPORT: Important Events on Shift: HD 2L out Patient Status: stable Diet: T-tube feeding as ordered Pending Orders: n/a Pending Results/Labsn/a Pending MD notification:n/a Latest Vital Signs: Temperature 97.7 , Pulse 104 , B/P 149 /71 , Respiratory Rate 35 , O2 SAT 94 , Mechanical Ventilator, O2 Flow Rate . Vital Sign Comment: stable EKG Rhythm: Sinus Rhythm Rhythm change?: N MD Notified?: N -Dr Екатерина HATFIELD Response: Order Received& Read Back Latest [place] Fall Score: 70 Fall Risk: High Risk Safety Measures: Call light Within Reach, Bed Alarm Zone 2, Side Rails Side Rails x3, Bed position Low and Locked. Fall Precautions: Yellow Socks Report given to ERASMO Sen.
--- NOTE | 2020-04-13 19:45 | Cardiology Progress Note ---
Subjective DATE OF SERVICE: Apr 13, 2020 BP control remains stable. Heart rates remain stable since dialysis resumed. CT scan revealed extensive thoracoabd aortic dissection- [place] Type B No overall change in cardiovascular parameters. Objective Last 24 Hour Vital Signs Date Time Temp Pulse Resp B/P (MAP) Pulse Ox O2 Delivery O2 Flow Rate FiO2 04/13/20 19:14 104 35 30 04/13/20 17:06 149/71 04/13/20 16:00 30 04/13/20 16:00 82 04/13/20 16:00 Mechanical Ventilator 04/13/20 16:00 97.7 85 18 149/71 (97) 94 04/13/20 14:40 77 16 30 04/13/20 12:50 79 18 30 04/13/20 12:00 30 04/13/20 12:00 99.1 81 16 145/68 (93) 94 04/13/20 12:00 82 04/13/20 12:00 Mechanical Ventilator 04/13/20 12:00 151/71 04/13/20 10:35 76 18 30 04/13/20 09:00 80 151/71 04/13/20 08:38 80 18 30 04/13/20 08:00 87 04/13/20 08:00 99.5 92 18 151/71 (97) 94 04/13/20 08:00 Mechanical Ventilator 04/13/20 08:00 30 04/13/20 07:46 78 18 30 04/13/20 05:34 140/75 04/13/20 05:22 86 17 30 04/13/20 04:20 Mechanical Ventilator 04/13/20 04:20 30 04/13/20 04:00 91 04/13/20 04:00 98.2 90 18 140/75 (96) 95 04/13/20 03:24 92 18 30 04/13/20 01:30 84 18 30 04/13/20 01:00 137/67 (90) 04/13/20 00:07 154/73 04/13/20 00:00 30 04/13/20 00:00 75 04/13/20 00:00 Mechanical Ventilator 04/13/20 00:00 98.4 75 18 154/73 (100) 95 04/12/20 23:09 76 18 30 04/12/20 22:49 98.6 04/12/20 22:05 148/77 04/12/20 21:34 74 18 30 04/12/20 20:00 80 04/12/20 20:00 30 04/12/20 20:00 98.6 80 18 148/77 (100) 95 04/12/20 20:00 Mechanical Ventilator HEENT: Thin Trach secretions RHYTHM: NSR, SB LUNGS: bilateral rhonchi - few, trach site clean CARDIAC: normal rate, regular rhythm, normal S1 and S2 ABDOMEN: normal bowel sounds, non tender, soft, G-Tube intact EXTREMITIES: normal range of motion, non-tender, normal inspection Laboratory Tests Test 04/13/20 13:11 POC Whole Blood Glucose 97 MG/DL (74-106) Assessment/Plan Assessment/Plan Aortic dissections - [place] B Sepsis with recovered shock Sinus node disease with bradycardia Hx pacemaker explant Ischemic cardiomyopathy - hx CABG? Paroxysmal Atrial Fib Respiratory failure with trach Hx thoracic aortic aneurysm repair ESRD Anemia HypoPO4 Hypertension/HHD now with controlled BP Remains off beta blockers; would not resume despite benefit in setting of AAA with dissection, as she has repeatedly developed significant bradycardia. Avoid metoclopramide, which can aggravate bradycardia. Favor regular HD/UF in this setting. ekg monitor Vent support Antimicrobials DVT prophyl Advance antiHTN meds until BP optimized Non-surgical mngmt Deni Willams MD Apr 13, 2020 19:45
[2020-04-13] MEDS: Dyna-Hex 2% Top Sol 2oz TOPIC SCH (20:40)
[2020-04-13] MEDS: Dakin's 0.125% Soln (Quarter Strength) 16oz TOPIC SCH (20:41)
--- NOTE | 2020-04-13 21:20 | NUR ---
NURSE NOTES: Pt 9PM meds passed.
--- NOTE | 2020-04-13 23:00 | NUR ---
NURSE NOTES: Dr Dong at bedside. pt status remains unchanged.
--- NOTE | 2020-04-13 23:46 | General Progress Note ---
Subjective Constitutional: Reports: no symptoms HEENT: Reports: no symptoms Cardiovascular: Reports: no symptoms Respiratory: Reports: no symptoms Gastrointestinal/Abdominal: Reports: no symptoms Neurologic/Psychiatric: Reports: depressed Endocrine: Reports: no symptoms Hematologic/Lymphatic: Reports: no symptoms Allergies: Coded Allergies: No Known Allergies (Unverified , 10/10/17) Objective Last 24 Hour Vital Signs Date Time Temp Pulse Resp B/P (MAP) Pulse Ox O2 Delivery O2 Flow Rate FiO2 04/13/20 21:32 86 32 30 04/13/20 21:14 97.5 04/13/20 20:00 Mechanical Ventilator 04/13/20 20:00 97.2 85 18 157/78 (104) 96 04/13/20 20:00 96 04/13/20 20:00 30 04/13/20 19:14 104 35 30 04/13/20 17:06 149/71 04/13/20 16:00 30 04/13/20 16:00 82 04/13/20 16:00 Mechanical Ventilator 04/13/20 16:00 97.7 85 18 149/71 (97) 94 04/13/20 14:40 77 16 30 04/13/20 12:50 79 18 30 04/13/20 12:00 30 04/13/20 12:00 99.1 81 16 145/68 (93) 94 04/13/20 12:00 82 04/13/20 12:00 Mechanical Ventilator 04/13/20 12:00 151/71 04/13/20 10:35 76 18 30 04/13/20 09:00 80 151/71 04/13/20 08:38 80 18 30 04/13/20 08:00 87 04/13/20 08:00 99.5 92 18 151/71 (97) 94 04/13/20 08:00 Mechanical Ventilator 04/13/20 08:00 30 04/13/20 07:46 78 18 30 04/13/20 05:34 140/75 04/13/20 05:22 86 17 30 04/13/20 04:20 Mechanical Ventilator 04/13/20 04:20 30 04/13/20 04:00 91 04/13/20 04:00 98.2 90 18 140/75 (96) 95 04/13/20 03:24 92 18 30 04/13/20 01:30 84 18 30 04/13/20 01:00 137/67 (90) 04/13/20 00:07 154/73 04/13/20 00:00 30 04/13/20 00:00 75 04/13/20 00:00 Mechanical Ventilator 04/13/20 00:00 98.4 75 18 154/73 (100) 95 Intake and Output 04/12/20 04/13/20 19:00 07:00 Intake Total 650.819 ml 40 ml Output Total 250 ml 300 ml Balance 400.819 ml -260 ml Intake Free Water 80 ml IV Total 210.819 ml Tube Feeding 360 ml 40 ml Output Urine Total 250 ml 300 ml # Bowel Movements 2 Laboratory Tests 04/13/20 13:11: POC Whole Blood Glucose 97 Height (Feet): 5 Height (Inches): 3.00 Weight (Pounds): 128 General Appearance: WD/WN, no apparent distress, alert, lethargic EENT: normal ENT inspection Neck: supple, normal inspection Cardiovascular: normal rate, regular rhythm, no gallop/murmur, no JVD Respiratory/Chest: lungs clear, normal breath sounds, no respiratory distress, no accessory muscle use Abdomen: normal bowel sounds, non tender, soft Extremities: non-tender Neurologic: alert, responsive Assessment/Plan Status Narrative Patient remains alert oriented febrile hemodynamically stable vital signs are normal laboratory tests are near normal case liner working on finding a subacute unit that has a dialysis unit in stable condition repeat laboratory tests will be done in a.m. Lucas Vera MD, MD Apr 13, 2020 23:46
[2020-04-14] VITALS: BP 151/80
[2020-04-14] MEDS: HydrALAZINE 50mg tab GT SCH ×5 (00:01→23:25)
[2020-04-14 04:00] VITALS: BP 142/76
[2020-04-14] MEDS: Sucralfate 1gm tab GT SCH ×5 (05:20→23:25)
[2020-04-14] MEDS: Metoclopramide 10mg/10ml Liq NG SCH ×2 (05:20)
[2020-04-14] MEDS: Zinc Oxide Oint 2oz TOPIC SCH ×3 (05:21→21:11)
[2020-04-14 05:26] LABS: HEMATOCRIT 23.2 % (37.0-47.0); HEMOGLOBIN 7.9 G/DL (12.0-16.0); MEAN CORPUSCULAR VOLUME 89 FL (80-99); PLATELET COUNT 313 K/UL (150-450); RED BLOOD COUNT 2.62 M/UL (4.20-5.40); RED CELL DISTRIBUTION WIDTH 15.1 % (11.6-14.8); WHITE BLOOD COUNT 6.3 K/UL (4.8-10.8)
[2020-04-14 06:06] LABS: ALBUMIN 1.3 G/DL (3.4-5.0); ALBUMIN/GLOBULIN RATIO 0.3 (1.0-2.7); BILIRUBIN,TOTAL 0.4 MG/DL (0.2-1.0); CALCIUM 8.3 MG/DL (8.5-10.1); CREATININE 2.5 MG/DL (0.55-1.30); PHOSPHORUS 1.7 MG/DL (2.5-4.9); POTASSIUM 3.3 MMOL/L (3.5-5.1)
--- NOTE | 2020-04-14 06:36 | Hematology/Onc Progress Note ---
Assessment/Plan Assessment/Plan # Leukocytosis, now with likely bacteremia, as per ID care --> Cxr: : Large left abiola consolidation/effusion --> wbc 30-->40-->27->30->29-->35->32-->28-->21->10.2-->6.6-->7,2 --> ABX angelo/vanc-->tobra/edson/vanc-->dapto/ceftazadine->off abx --> smear reviewed --> ID recs are noted # Anemia of chronic disease due to underlying chronic medical issues, multifactorial --> Anemia workup has been reviewed, cw acd --> No evidence of hemolysis is noted, peripheral smear has been reviewed. --> Hgb goal >7. Transfuse prn. --> Epogen required in prior --> Medications have been reviewed --> low threshold for gi evaluation in case has occult + --> hgb 1.9-->5-->7.1-->8.8-->8.1->7.5-> 8. 2-->6.8-->9.2-->8.4->7.7-->7.1-->8.8->8.7-->8.2-->8 --> 1 unit prbc1, 2 units 01/15, 03/02, 03/18, 03/24 --> gi eval as needed # Elevated tumor markers, cea and ca 19.9 --> reviewed prior 01/27/20 cat scan a/p --> no masses noted, hold off further extensive w/u # Thrombocytopenia likely reactive v medication induced --> plt 200-->129->91-->86->100->78-->86-->87-->125->135 --> transfuse as needed --> r/o dic, has been ruled out --> anticoag as needed # Coagulopathy with inr 1.5 --> consider vit k/ffp as needed preprocedure --> labs noted # Aortic dissection as seen on Ct ==> when stable, consider transfer hloc # JAVIER initially >2 --> on ivfs --> per renal is on HD # Elevated d-dimer, likely infection related --> venous duplex prior neg --> in prior neg # Dysphagia s/p peg --> as per gi # Thoracic aortic dissection --> s/p repair early 2017 # Chronic Resp failure -> s/p trach/vent # Psychiatric history on ativan/haldol # [facility] resident # Dvt ppx --> scds The timing of this note does not necessarily reflect the time of the patient was seen. Greatly appreciate consultation. Subjective Genitourinary: Denies: no symptoms, burning, discharge, frequency, flank pain, hematuria, incontinence, pain, urgency, other Neurologic/Psychiatric: Denies: no symptoms, anxiety, depressed, emotional problems, headache, numbness, paresthesia, pre-existing deficit, seizure, tingling, tremors, weakness, other Allergies: Coded Allergies: No Known Allergies (Unverified , 10/10/17) All Systems: reviewed and negative except above Subjective 03/04 nv, for 1 unit transfusion this am as hgb remains low, wbc better 03/05 egd was done did show large nonbleeding gastric ulcer, high tumor markers 03/06 nv, with davis overnight, bp remains stable, with occult + stool, roman Rn 03/09 nv, remains stable, on vanc/tobra/edson, meds reviewed, no bleeding 03/10 nv, on vent, no bleeding, receiving abx, no night sweats 03/11 nv, dw surgeon and pcp, with aortic dissection to transfer [facility] when stable 03/12 nv, labs reviewed, wbc 21, hgb 7.5, otherwise is comfortable 03/13 nv, labs noted, no bleeding, wbc 13, hgb improved, meds reviewed 03/15 nv, meds reviewed, labs noted, no bleeding, on vent 03/16 nv/tv, peg, meds noted, hgb remains stable, improved to 10 03/17 s/p egd, with gastric ulceration noted, hgb stable 2/3 labs noted, hgb 6.8, to get 1 unit prbc, meds reviewed 03/19 hgb 9.2, plt 78, no hemoptysis, is comfortable 03/20 labs reviewed, meds noted, no bleeding, roman rn 03/22 wound treatment, vent, with gtube, labs reviewed, roman rn 03/23 labs reviewed, meds noted, no bleeding, with gt 03/24 large bm overnight that was bloody, hgb 7.1, dw rn 03/25 labs pending this am, comfortable, nsr, meds noted 03/26 nv, vent, with gt, labs reviewed, hgb 8.8 03/27 nv, vent, labs reviewed, with gt, hgb stable 03/29 nv, vent, labs pending, meds reviewed, no bleeding 03/30 nv, t/v, with gt feeds, labs reviewed, meds noted 03/31 nv, t/v, oral secretions were suctioned, meds reviewed 04/01 nv, t/v, labs are reviewed, meds noted, hgb 7.4 04/02 gt leaking, facial grimacing, labs noted, no bleeding, dw rn 04/03 nv, labs noted, no bleeding, roman rn, h/h stable 04/04 nv, labs reviewed, gtube replacement as per Dr. Mccauley 04/05 nv, labs reviewed, meds noted no bleeding, roman rn 04/06 nv, labs, meds noted, no bleeding, on vt, no new changes 04/07 nv, meds reviewed, labs noted, no bleeding, bp was high on, transferred to icu 04/08 nv, labs noted, no bleeding, evaluated at the bedside 04/09 nv, labs noted, no bleeding, hgb 7.6, repeat pending 04/10 nv is on gt feeds, labs reviewed, hgb better 04/12 nv, gt feeds, asleep, no night sweats, meds reviewed 04/13 sr, afebrile, nv, with gt, no bleeding, labs noted, sdu 04/14 nv, sr, afebrile, for placement to subacute with hd Objective Objective Current Medications Medications (Trade) Dose Ordered Sig/Penny Route PRN Reason Start Time Stop Time Status Last Admin Dose Admin Amlodipine Besylate (Norvasc) 5 mg DAILY ORAL 04/10/20 09:00 05/10/20 08:59 04/12/20 08:39 Aspirin (ASA) 81 mg DAILY GT 03/07/20 09:00 04/21/20 08:59 04/12/20 08:39 Chlorhexidine Gluconate (Ling-Hex 2%) 1 applic DAILY@1999 TOPIC 03/03/20 20:00 06/01/20 19:59 04/13/20 20:40 Dextrose (Dextrose 50%) 25 ml Q30M PRN IV Hypoglycemia 03/15/20 07:30 06/13/20 07:29 04/05/20 09:08 Dextrose (Dextrose 50%) 50 ml Q30M PRN IV Hypoglycemia 03/15/20 07:30 06/13/20 07:29 Famotidine (Pepcid) 20 mg BID GT 04/06/20 18:00 07/05/20 17:59 04/13/20 17:05 Hydralazine HCl (Apresoline) 25 mg Q6H PRN GT For High Blood Pressure 03/02/20 22:00 05/31/20 21:59 04/12/20 22:05 Hydralazine HCl (Apresoline) 50 mg Q6HR GT 04/07/20 00:00 07/06/20 00:00 04/14/20 05:20 Hydrocortisone (Anusol HC) 25 mg Q12HR RECTAL 03/23/20 21:00 06/21/20 08:59 04/13/20 20:40 Hydromorphone HCl (Dilaudid) 0.5 mg Q4H PRN IVP For Pain 04/09/20 22:30 04/16/20 22:29 04/13/20 20:44 Lansoprazole (Prevacid) 30 mg BID GT 04/13/20 09:00 05/13/20 08:59 04/13/20 17:05 Metoclopramide HCl (Reglan) 5 mg EVERY 6 HOURS NG 04/06/20 12:00 05/06/20 11:59 04/14/20 05:20 Sodium Hypochlorite (Dakin's Quarter Strength) 1 applic BEDTIME TOPIC 04/04/20 21:00 05/02/20 08:59 04/13/20 20:41 Sorbitol (sorbitoL) 30 ml Q6HR PRN ORAL Constipation 04/11/20 12:15 05/11/20 12:14 04/12/20 20:44 Sucralfate (Carafate) 1 gm EVERY 6 HOURS GT 03/17/20 18:00 06/09/20 08:59 04/14/20 05:20 Tramadol HCl (Ultram) 50 mg Q6H PRN GT Moderate Pain (Pain Scale 4-6) 04/09/20 22:30 04/16/20 22:29 04/13/20 09:33 Zinc Oxide (Zinc Oxide) 1 applic Q8HR TOPIC 03/25/20 22:00 06/22/20 17:59 04/14/20 05:21 Last 24 Hour Vital Signs Date Time Temp Pulse Resp B/P (MAP) Pulse Ox O2 Delivery O2 Flow Rate FiO2 04/14/20 05:28 79 18 30 04/14/20 05:20 162/85 04/14/20 04:00 97.4 78 19 142/76 (98) 99 04/14/20 04:00 77 04/14/20 04:00 Mechanical Ventilator 04/14/20 04:00 30 04/14/20 03:16 76 16 30 04/14/20 01:54 88 25 30 04/14/20 00:01 151/88 04/14/20 00:00 Mechanical Ventilator 04/14/20 00:00 97.8 80 19 151/80 (103) 96 04/14/20 00:00 78 04/14/20 00:00 30 04/13/20 23:46 89 20 30 04/13/20 21:32 86 32 30 04/13/20 21:14 97.5 04/13/20 20:00 Mechanical Ventilator 04/13/20 20:00 97.2 85 18 157/78 (104) 96 04/13/20 20:00 96 04/13/20 20:00 30 04/13/20 19:14 104 35 30 04/13/20 17:06 149/71 04/13/20 16:00 30 04/13/20 16:00 82 04/13/20 16:00 Mechanical Ventilator 04/13/20 16:00 97.7 85 18 149/71 (97) 94 04/13/20 14:40 77 16 30 04/13/20 12:50 79 18 30 04/13/20 12:00 30 04/13/20 12:00 99.1 81 16 145/68 (93) 94 04/13/20 12:00 82 04/13/20 12:00 Mechanical Ventilator 04/13/20 12:00 151/71 04/13/20 10:35 76 18 30 04/13/20 09:00 80 151/71 04/13/20 08:38 80 18 30 04/13/20 08:00 87 04/13/20 08:00 99.5 92 18 151/71 (97) 94 04/13/20 08:00 Mechanical Ventilator 04/13/20 08:00 30 04/13/20 07:46 78 18 30 04/13/20 05:34 140/75 04/13/20 05:22 86 17 30 04/13/20 04:20 Mechanical Ventilator 04/13/20 04:20 30 04/13/20 04:00 91 04/13/20 04:00 98.2 90 18 140/75 (96) 95 04/13/20 03:24 92 18 30 04/13/20 01:30 84 18 30 04/13/20 01:00 137/67 (90) 04/13/20 00:07 154/73 04/13/20 00:00 30 04/13/20 00:00 75 04/13/20 00:00 Mechanical Ventilator 04/13/20 00:00 98.4 75 18 154/73 (100) 95 04/12/20 23:09 76 18 30 04/12/20 22:49 98.6 04/12/20 22:05 148/77 04/12/20 21:34 74 18 30 04/12/20 20:00 80 04/12/20 20:00 30 04/12/20 20:00 98.6 80 18 148/77 (100) 95 04/12/20 20:00 Mechanical Ventilator 04/12/20 19:35 78 19 30 04/12/20 17:25 122/65 04/12/20 16:00 30 04/12/20 16:00 Mechanical Ventilator 04/12/20 15:38 64 04/12/20 15:36 97.9 64 14 122/65 (84) 95 04/12/20 15:16 67 17 30 04/12/20 12:34 72 22 30 04/12/20 12:00 30 04/12/20 12:00 Mechanical Ventilator 04/12/20 12:00 97.9 76 14 140/76 (97) 99 04/12/20 11:56 78 04/12/20 11:52 147/77 04/12/20 11:12 78 22 30 04/12/20 08:51 71 14 30 04/12/20 08:39 87 147/77 04/12/20 08:00 Mechanical Ventilator 04/12/20 08:00 98.7 87 18 141/88 (105) 100 04/12/20 07:46 73 04/12/20 07:22 30 04/12/20 07:08 75 16 30 Intake and Output 04/13/20 04/14/20 19:00 07:00 Intake Total 530 ml 440 ml Output Total 2000 ml Balance -1470 ml 440 ml Intake Free Water 50 ml Tube Feeding 480 ml 440 ml Hemodialysis UF 2000 ml # Bowel Movements 2 Labs Test 04/11/20 11:20 04/11/20 17:25 04/12/20 04:08 04/13/20 13:11 POC Whole Blood Glucose 98 MG/DL (74-106) 78 MG/DL (74-106) 97 MG/DL (74-106) White Blood Count 6.2 K/UL (4.8-10.8) Red Blood Count 2.34 M/UL (4.20-5.40) Hemoglobin 7.2 G/DL (12.0-16.0) Hematocrit 21.3 % (37.0-47.0) Mean Corpuscular Volume 91 FL (80-99) Mean Corpuscular Hemoglobin 30.6 PG (27.0-31.0) Mean Corpuscular Hemoglobin Concent 33.7 G/DL (32.0-36.0) Red Cell Distribution Width 14.1 % (11.6-14.8) Platelet Count 358 K/UL (150-450) Mean Platelet Volume 5.0 FL (6.5-10.1) Neutrophils (%) (Auto) % (45.0-75.0) Lymphocytes (%) (Auto) % (20.0-45.0) Monocytes (%) (Auto) % (1.0-10.0) Eosinophils (%) (Auto) % (0.0-3.0) Basophils (%) (Auto) % (0.0-2.0) Sodium Level 137 MMOL/L (136-145) Potassium Level 3.6 MMOL/L (3.5-5.1) Chloride Level 101 MMOL/L (98-107) Carbon Dioxide Level 27 MMOL/L (21-32) Anion Gap 9 mmol/L (5-15) Blood Urea Nitrogen 111 mg/dL (7-18) Creatinine 3.0 MG/DL (0.55-1.30) Estimat Glomerular Filtration Rate 16.7 mL/min (>60) Glucose Level 91 MG/DL (74-106) Calcium Level 8.4 MG/DL (8.5-10.1) Phosphorus Level 1.9 MG/DL (2.5-4.9) Magnesium Level 2.5 MG/DL (1.8-2.4) Total Bilirubin 0.4 MG/DL (0.2-1.0) Aspartate Amino Transf (AST/SGOT) 33 U/L (15-37) Alanine Aminotransferase (ALT/SGPT) 15 U/L (12-78) Alkaline Phosphatase 167 U/L (46-116) C-Reactive Protein, Quantitative 10.9 mg/dL (0.00-0.90) Pro-B-Type Natriuretic Peptide > 30733 pg/mL (0-125) Total Protein 6.0 G/DL (6.4-8.2) Albumin 1.4 G/DL (3.4-5.0) Globulin 4.6 g/dL Albumin/Globulin Ratio 0.3 (1.0-2.7) Test 04/14/20 03:10 White Blood Count 6.3 K/UL (4.8-10.8) Red Blood Count 2.62 M/UL (4.20-5.40) Hemoglobin 7.9 G/DL (12.0-16.0) Hematocrit 23.2 % (37.0-47.0) Mean Corpuscular Volume 89 FL (80-99) Mean Corpuscular Hemoglobin 30.1 PG (27.0-31.0) Mean Corpuscular Hemoglobin Concent 34.0 G/DL (32.0-36.0) Red Cell Distribution Width 15.1 % (11.6-14.8) Platelet Count 313 K/UL (150-450) Mean Platelet Volume 4.9 FL (6.5-10.1) Neutrophils (%) (Auto) % (45.0-75.0) Lymphocytes (%) (Auto) % (20.0-45.0) Monocytes (%) (Auto) % (1.0-10.0) Eosinophils (%) (Auto) % (0.0-3.0) Basophils (%) (Auto) % (0.0-2.0) Sodium Level 141 MMOL/L (136-145) Potassium Level 3.3 MMOL/L (3.5-5.1) Chloride Level 103 MMOL/L (98-107) Carbon Dioxide Level 30 MMOL/L (21-32) Anion Gap 8 mmol/L (5-15) Blood Urea Nitrogen 80 mg/dL (7-18) Creatinine 2.5 MG/DL (0.55-1.30) Estimat Glomerular Filtration Rate 20.6 mL/min (>60) Glucose Level 107 MG/DL (74-106) Calcium Level 8.3 MG/DL (8.5-10.1) Phosphorus Level 1.7 MG/DL (2.5-4.9) Magnesium Level 2.5 MG/DL (1.8-2.4) Total Bilirubin 0.4 MG/DL (0.2-1.0) Aspartate Amino Transf (AST/SGOT) 34 U/L (15-37) Alanine Aminotransferase (ALT/SGPT) 15 U/L (12-78) Alkaline Phosphatase 193 U/L (46-116) Total Protein 5.8 G/DL (6.4-8.2) Albumin 1.3 G/DL (3.4-5.0) Globulin 4.5 g/dL Albumin/Globulin Ratio 0.3 (1.0-2.7) Height (Feet): 5 Height (Inches): 3.00 Weight (Pounds): 128 Objective Physical Exam: Vitals: reviewed General: NAD HEENT: nc, at Neck: supple ++trach/vent Chest: clear breath sounds bilaterally Cardiovascular: RRR, no s3, s4 Abdomen: soft, nontender, nd +gtube Extremities: no cce, normal range of motion Neuro: alert Evan Muhammad MD Apr 14, 2020 06:36
--- NOTE | 2020-04-14 07:11 | NUR ---
NURSE HAND-OFF REPORT: Important Events on Shift:[NA] Patient Status: [unchanged] Diet: [per doctor order] Pending Orders: [na] Pending Results/Labs:[na] Pending MD notification:[na] Latest Vital Signs: Temperature 97.4 , Pulse 79 , B/P 162 /85 , Respiratory Rate 18 , O2 SAT 99 , Mechanical Ventilator, O2 Flow Rate . Vital Sign Comment: [stable] EKG Rhythm: Sinus Rhythm Rhythm change?: N MD Notified?: N -Dr Екатерина HATFIELD Response: Order Received& Read Back Latest [place] Fall Score: 70 Fall Risk: High Risk Safety Measures: Call light Within Reach, Bed Alarm Zone 2, Side Rails Side Rails x3, Bed position Low and Locked. Fall Precautions: Yellow Socks Report given to [Neftali Khoury RN].
--- NOTE | 2020-04-14 07:17 | NUR ---
NURSE NOTES: Received report from ERASMO Sen. Patient in bed resting, no active s/s cardiac, respiratory distress noticed at this time. Patient trach to vent, aphasic, follow simple command, open eyes spontaneously. Trach to vent Shiley 7 AC 14 TV 500 Fio2 30m% PEEP 5. GT patent, intact, Nephro running @ 40ml/h. HD access on right subclavian PermaCath, patent, intact. Last HD yesterday / 2L out. IV on left AC 18G, asymptomatic, patent, intact. Bed in lowest position, side rails upx3, call light within reach, bed alarm on, Will continue to monitor.
--- NOTE | 2020-04-14 07:30 | NUR ---
RESPIRATORY NOTE: Received pt mechanically ventilated on AC/VC 14, 500, +5, 30% FiO2. Spo2 96% on current settings. Pt is trached with a cuffed Shiley #7 XLT distal tracheostomy tube. Bilateral b/s are rhonchi throughout with equal chest rise. SXN small amounts of clear/ white secretions tracheally. Vent is plugged into red outlet. Alarms are on and audible. No s/s of respiratory distress noted at this time. Will continue to closely monitor.
[2020-04-14 08:00] VITALS: BP 149/62
--- NOTE | 2020-04-14 08:03 | Infectious Diseases Prog Note ---
Assessment/Plan 49yo F with: MDR Kleb pna bacteremia AMS Anemia to 1.9 on admission 03/02 Leukocytosis to 40, improving GPC bacteremia UTI Pneumonia c/b mod-large R pleural effusion and small L pleural effusion - compressive atelectasis Hypotension 03/02 BCx 1/2 +Staph epi, 12 +Staph haemolyticus (m/l skin colonizers) UA+, UCx >100k P.stuartii (S-angelo) & CRE P.mirablis (R-polyB/colistin, S- tobramycin, per [facility] is "intrinsically resistant to Avycaz/Zerbaxa" not clear why to me and they are unable to elaborate more) COVID rapid neg, PCR neg CXR: Tracheostomy again demonstrated. Interim placement of a right jugular tunneled dialysis catheter. There is infiltrate and volume loss in the left lung, particularly in the perihilar region, suprahilar region, and base. Consolidation at the lung base is similar. The perihilar and suprahilar region consolidation is new. The right lung pleural space are clear. C.dif neg 03/03 BCx NTD 03/06 BCx 2/2 +MDR Kleb pna (arnett-R, including R-polyB, colistin), 02/14 +E.faecium VRE (R-amp, S-linezolid) 03/08 BCx NTD 03/09 CT CAP: Very limited exam, as described, due to massive anasarca. This could limit visualization of the discrete fluid collection such as an abscess. Extensive thoracoabdominal aortic dissection, as described above. Current flap begins just distal to the left subclavian artery origin; per report, there is history of surgical repair so there may have been surgical repair of the ascending thoracic aorta. Bilateral pleural effusions, slightly smaller than on earlier exams. Extensive atelectasis as a result. Extensive pulmonary par enchymal disease as detailed above. This may reflect pneumonia or pulmonary edema or both. Evidence of pulmonary arterial hypertension, with dilatation of the pulmonary artery. Considerable ascites fluid. 03/11 Chest US: Small right, trace left pleural effusions, insufficient for safe thoracentesis AF Sepsis Leukocytosis Hypoxia on vent Pneumonia c/b L pleural effusion (recurrent, prior determined to be transudative) - s/p thora 01/21, 1050cc removed Volume overload, BNP >35,0000, likely 2/2 progressive CKD --> ESRD ?Pancreatitis, Lipase >2000 Acute anemia to 5s CONS bacteremia, ?contaminant Aflutter w/ RVR 01/13 BCx 2/2 +S. epi COVID PCR neg Flu neg CXR: Large left pleural effusion. Bilateral interstitial and airspace infiltrates versus edema MRSA nares neg 01/16 BCx NTD 01/17 BCx /2 +Staph auricularis (skin colonizer) 01/18 Resp cx +MDR CRE PsA (S-gent, I-colistin, R-polyB) (Intermediate to Zerbaxa, Resistant to Avycaz) 01/18 C.dif neg 01/18 CXR: Similar opacification of the left hemithorax likely representing combination of pleural effusion with atelectasis versus pneumonia/edema. Decreased but persistent hazy opacity throughout the right lung may represent edema versus infectious/inflammatory process. 01/20 BCx NTD 01/21 L thora 1050 cc removed, cx NTD 01/25 Wound cx from Gtube site +CRE Kleb pna (arnett-R) and MDR PsA (colonizers) 01/26 CT A/P: Limited exam, due to severe diffuse anasarca. Ascites. Bilateral pleural effusions. Basilar pulmonary atelectatic changes and consolidation. Gastrostomy. Atrophic left kidney with a nephroureteral stents again demonstrated. Possible retrococcygeal decubitus changes. Correlate with clinical findings, consider MRI if there is concern for sacral osteomyelitis. Right hip intertrochanteric fracture, also previously demonstrated. Left femoral dialysis catheter. Nonspecific right lobe liver lesion is unchanged, not well- demonstrated. ctasia bordering on aneurysmal dilatation and possible chronic dissection of the distal thoracic aorta, also previously described. JAVIER on CKD On previous admission Sep-Oct 2019 required HD for short period Going to start HD this admission again R/o COVID 01/14 COVID PCR neg 12/29 neg at [facility] per report H/o UTI 10/15 u/a wbc 30-40, nit neg, leuk +3; ucx ESBL P. mirablis, ESBL M. morganii //20 u/a wbc tnct, nit neg, leuk +3; ucx >100k MDR P. stuarti (S Ceftriaxone, Meropenem) 8/25 u/a wbc tnct, nit neg, leuk ; ucx >100k VRE 10/15/19 u/a wbc tnct; ucx >100k ESBL P. stuarti (S ertapenem, aztreonam) H/o transudative pleural effusion 11/28 Sp Thora (w: 169, PMN: 2%, L: 49% , LDH: 57, prot 2.5); cx Neg H/o PNA 10/15/19 Resp cx ESBL P. mirabilis, MDR P.a. (S only to Gent) 09/22 Resp cx + MDR PsA (S-gent; I-colistin; R-levofloxacin, Zosyn, angelo) 09/16/19 Sp cx ESBL P. mirablis H/o PPM site (pocket) infection and pocket abscess 2ry to S. epi-11/2018, sp >6weeks IV vancomycin 11/27 SP ABBIE: no evidence for vegetation on any of the valves 11/26/18 SP PPM removal: OR findings:The fibrous capsule enclosing the generator was then opened and there was a [id number] amount of yellowish fluid drainage. The generator was then removed.Atrial and ventricular leads were detached. The necrotic tissue of the pocket was then removed and the pocket was flushed with an antibiotic solution. Capsule, wound tissue and lead tip cx: Neg 2d echo: no vegetation seen US chest: 4.6 x 3.4 x 0.9 cm hypoechoic/anechoic area overlying left chest pacemaker power pack. This could represent either a discrete fluid collection or a focal area of very edematous tissue. Infected fluid pocket also possible. 11/18 Bcx 3/ S. epi; 11/20 Bcx neg; 11/24 Bcx Neg; 11/27 Bcx Neg CAD s/p CABG GERD/gastritis Afib HTN Dysphagia sp GT Aortic dissection s/p repair 2017 S/p PPM Parkinson's Disease Schizophrenia Anxiety COPD Chronic resp failure s/p trach Hx of tracheal bleeding [place] resident ([facility]) VRE and MRSA colonized Plan: Monitor off abx as she is stable 03/21 SP daptomycin #12, Avycaz #16 for VRE and MDR Kleb bacteremia 03/16 SP tobramycin IV #10 for resistant UTI 03/10/20 SP edson #4 empiric, vanco #9 01/31 SP angelo/inh tobra #10 for pna 01/23 SP vanco IV #10 given CONS/GPC bacteremia 01/16 SP Zosyn #2 01/14 SP dex 10mg in ED 12/10 SP IV Gentamycin #10 12/07 SP Meropenem #10 12/01 SP IV Vancomycin #5 11/28 Sp Cefepime #2 and IV Gentamycin x1 Monitor CBC/CMP Monitor temp curve, hemodynamics Monitor resp status D/w RN Thank you for this consult. [facility] will continue to follow. Subjective Allergies: Coded Allergies: No Known Allergies (Unverified , 10/10/17) Afebrile No Leukocytosis On vent satting well Objective Last 24 Hour Vital Signs Date Time Temp Pulse Resp B/P (MAP) Pulse Ox O2 Delivery O2 Flow Rate FiO2 04/14/20 05:28 79 18 30 04/14/20 05:20 162/85 04/14/20 04:00 97.4 78 19 142/76 (98) 99 04/14/20 04:00 77 04/14/20 04:00 Mechanical Ventilator 04/14/20 04:00 30 04/14/20 03:16 76 16 30 04/14/20 01:54 88 25 30 04/14/20 00:01 151/88 04/14/20 00:00 Mechanical Ventilator 04/14/20 00:00 97.8 80 19 151/80 (103) 96 04/14/20 00:00 78 04/14/20 00:00 30 04/13/20 23:46 89 20 30 04/13/20 21:32 86 32 30 04/13/20 21:14 97.5 04/13/20 20:00 Mechanical Ventilator 04/13/20 20:00 97.2 85 18 157/78 (104) 96 04/13/20 20:00 96 04/13/20 20:00 30 04/13/20 19:14 104 35 30 04/13/20 17:06 149/71 04/13/20 16:00 30 04/13/20 16:00 82 04/13/20 16:00 Mechanical Ventilator 04/13/20 16:00 97.7 85 18 149/71 (97) 94 04/13/20 14:40 77 16 30 04/13/20 12:50 79 18 30 04/13/20 12:00 30 04/13/20 12:00 99.1 81 16 145/68 (93) 94 04/13/20 12:00 82 04/13/20 12:00 Mechanical Ventilator 04/13/20 12:00 151/71 04/13/20 10:35 76 18 30 04/13/20 09:00 80 151/71 04/13/20 08:38 80 18 30 Height (Feet): 5 Height (Inches): 3.00 Weight (Pounds): 128 Gen: NAD on Vent HEENT: NCAT, trach Pulm: BL chest rise on vent Abd: Soft, ND, +PEG Skin: No visible rashes Lines: R chest Permacath dressing c/d/i Laboratory Tests Test 04/13/20 13:11 04/14/20 03:10 POC Whole Blood Glucose 97 MG/DL (74-106) White Blood Count 6.3 K/UL (4.8-10.8) Red Blood Count 2.62 M/UL (4.20-5.40) L Hemoglobin 7.9 G/DL (12.0-16.0) L Hematocrit 23.2 % (37.0-47.0) L Mean Corpuscular Volume 89 FL (80-99) Mean Corpuscular Hemoglobin 30.1 PG (27.0-31.0) Mean Corpuscular Hemoglobin Concent 34.0 G/DL (32.0-36.0) Red Cell Distribution Width 15.1 % (11.6-14.8) H Platelet Count 313 K/UL (150-450) Mean Platelet Volume 4.9 FL (6.5-10.1) L Neutrophils (%) (Auto) % (45.0-75.0) Lymphocytes (%) (Auto) % (20.0-45.0) Monocytes (%) (Auto) % (1.0-10.0) Eosinophils (%) (Auto) % (0.0-3.0) Basophils (%) (Auto) % (0.0-2.0) Sodium Level 141 MMOL/L (136-145) Potassium Level 3.3 MMOL/L (3.5-5.1) L Chloride Level 103 MMOL/L (98-107) Carbon Dioxide Level 30 MMOL/L (21-32) Anion Gap 8 mmol/L (5-15) Blood Urea Nitrogen 80 mg/dL (7-18) H Creatinine 2.5 MG/DL (0.55-1.30) H Estimat Glomerular Filtration Rate 20.6 mL/min (>60) Glucose Level 107 MG/DL (74-106) H Calcium Level 8.3 MG/DL (8.5-10.1) L Phosphorus Level 1.7 MG/DL (2.5-4.9) L Magnesium Level 2.5 MG/DL (1.8-2.4) H Total Bilirubin 0.4 MG/DL (0.2-1.0) Aspartate Amino Transf (AST/SGOT) 34 U/L (15-37) Alanine Aminotransferase (ALT/SGPT) 15 U/L (12-78) Alkaline Phosphatase 193 U/L (46-116) H Total Protein 5.8 G/DL (6.4-8.2) L Albumin 1.3 G/DL (3.4-5.0) L Globulin 4.5 g/dL Albumin/Globulin Ratio 0.3 (1.0-2.7) L Current Medications Medications (Trade) Dose Ordered Sig/Penny Route PRN Reason Start Time Stop Time Status Last Admin Dose Admin Amlodipine Besylate (Norvasc) 5 mg DAILY ORAL 04/10/20 09:00 05/10/20 08:59 04/12/20 08:39 Aspirin (ASA) 81 mg DAILY GT 03/07/20 09:00 04/21/20 08:59 04/12/20 08:39 Chlorhexidine Gluconate (Ling-Hex 2%) 1 applic DAILY@1999 TOPIC 03/03/20 20:00 06/01/20 19:59 04/13/20 20:40 Dextrose (Dextrose 50%) 25 ml Q30M PRN IV Hypoglycemia 03/15/20 07:30 06/13/20 07:29 04/05/20 09:08 Dextrose (Dextrose 50%) 50 ml Q30M PRN IV Hypoglycemia 03/15/20 07:30 06/13/20 07:29 Famotidine (Pepcid) 20 mg BID GT 04/06/20 18:00 07/05/20 17:59 04/13/20 17:05 Hydralazine HCl (Apresoline) 25 mg Q6H PRN GT For High Blood Pressure 03/02/20 22:00 05/31/20 21:59 04/12/20 22:05 Hydralazine HCl (Apresoline) 50 mg Q6HR GT 04/07/20 00:00 07/06/20 00:00 04/14/20 05:20 Hydrocortisone (Anusol HC) 25 mg Q12HR RECTAL 03/23/20 21:00 06/21/20 08:59 04/13/20 20:40 Hydromorphone HCl (Dilaudid) 0.5 mg Q4H PRN IVP For Pain 04/09/20 22:30 04/16/20 22:29 04/13/20 20:44 Lansoprazole (Prevacid) 30 mg BID GT 04/13/20 09:00 05/13/20 08:59 04/13/20 17:05 Metoclopramide HCl (Reglan) 5 mg EVERY 6 HOURS NG 04/06/20 12:00 05/06/20 11:59 04/14/20 05:20 Sodium Hypochlorite (Dakin's Quarter Strength) 1 applic BEDTIME TOPIC 04/04/20 21:00 05/02/20 08:59 04/13/20 20:41 Sorbitol (sorbitoL) 30 ml Q6HR PRN ORAL Constipation 04/11/20 12:15 05/11/20 12:14 04/12/20 20:44 Sucralfate (Carafate) 1 gm EVERY 6 HOURS GT 03/17/20 18:00 06/09/20 08:59 04/14/20 05:20 Tramadol HCl (Ultram) 50 mg Q6H PRN GT Moderate Pain (Pain Scale 4-6) 04/09/20 22:30 04/16/20 22:29 04/13/20 09:33 Zinc Oxide (Zinc Oxide) 1 applic Q8HR TOPIC 03/25/20 22:00 06/22/20 17:59 04/14/20 05:21 Deni Gilbert MD Apr 14, 2020 08:03
[2020-04-14] MEDS: Hydrocortisone 25mg supp RECTAL SCH ×2 (08:32→21:10)
[2020-04-14] MEDS: Aspirin Baby 81mg GT SCH (08:33)
--- NOTE | 2020-04-14 09:28 | General Progress Note ---
Subjective ROS Limited/Unobtainable: No Allergies: Coded Allergies: No Known Allergies (Unverified , 10/10/17) Objective Last 24 Hour Vital Signs Date Time Temp Pulse Resp B/P (MAP) Pulse Ox O2 Delivery O2 Flow Rate FiO2 04/14/20 08:33 74 149/62 04/14/20 08:00 98.2 74 16 149/62 (91) 96 04/14/20 08:00 70 04/14/20 07:30 73 16 30 04/14/20 05:28 79 18 30 04/14/20 05:20 162/85 04/14/20 04:00 97.4 78 19 142/76 (98) 99 04/14/20 04:00 77 04/14/20 04:00 Mechanical Ventilator 04/14/20 04:00 30 04/14/20 03:16 76 16 30 04/14/20 01:54 88 25 30 04/14/20 00:01 151/88 04/14/20 00:00 Mechanical Ventilator 04/14/20 00:00 97.8 80 19 151/80 (103) 96 04/14/20 00:00 78 04/14/20 00:00 30 04/13/20 23:46 89 20 30 04/13/20 21:32 86 32 30 04/13/20 21:14 97.5 04/13/20 20:00 Mechanical Ventilator 04/13/20 20:00 97.2 85 18 157/78 (104) 96 04/13/20 20:00 96 04/13/20 20:00 30 04/13/20 19:14 104 35 30 04/13/20 17:06 149/71 04/13/20 16:00 30 04/13/20 16:00 82 04/13/20 16:00 Mechanical Ventilator 04/13/20 16:00 97.7 85 18 149/71 (97) 94 04/13/20 14:40 77 16 30 04/13/20 12:50 79 18 30 04/13/20 12:00 30 04/13/20 12:00 99.1 81 16 145/68 (93) 94 04/13/20 12:00 82 04/13/20 12:00 Mechanical Ventilator 04/13/20 12:00 151/71 04/13/20 10:35 76 18 30 Intake and Output 04/13/20 04/14/20 19:00 07:00 Intake Total 530 ml 440 ml Output Total 2000 ml Balance -1470 ml 440 ml Intake Free Water 50 ml Tube Feeding 480 ml 440 ml Hemodialysis UF 2000 ml # Bowel Movements 2 Laboratory Tests 04/13/20 13:11: POC Whole Blood Glucose 97 04/14/20 03:10: White Blood Count 6.3, Red Blood Count 2.62L, Hemoglobin 7.9L, Hematocrit 23.2L, Mean Corpuscular Volume 89, Mean Corpuscular Hemoglobin 30.1, Mean Corpuscular Hemoglobin Concent 34.0, Red Cell Distribution Width 15.1H, Platelet Count 313, Mean Platelet Volume 4.9L, Neutrophils (%) (Auto) , Lymphocytes (%) (Auto) , Monocytes (%) (Auto) , Eosinophils (%) (Auto) , Basophils (%) (Auto) , Sodium Level 141, Potassium Level 3.3L, Chloride Level 103, Carbon Dioxide Level 30, Anion Gap 8, Blood Urea Nitrogen 80H, Creatinine 2.5H, Estimat Glomerular Filtration Rate 20.6, Glucose Level 107H, Calcium Level 8.3L, Phosphorus Level 1.7L, Magnesium Level 2.5H, Total Bilirubin 0.4, Aspartate Amino Transf (AST/SGOT) 34, Alanine Aminotransferase (ALT/SGPT) 15, Alkaline Phosphatase 193H , Total Protein 5.8L, Albumin 1.3L, Globulin 4.5, Albumin/Globulin Ratio 0.3L Height (Feet): 5 Height (Inches): 3.00 Weight (Pounds): 128 General Appearance: no apparent distress EENT: normal ENT inspection Neck: supple Cardiovascular: normal rate Respiratory/Chest: decreased breath sounds Abdomen: normal bowel sounds, non tender, soft Extremities: non-tender Assessment/Plan Problem List: (1) Hx of CABG ICD Codes: Z95.1 - Presence of aortocoronary bypass graft SNOMED: 362197920, 002513414 (2) History of tracheostomy ICD Codes: Z98.890 - Other specified postprocedural states SNOMED: 746090233, 344714580 (3) PEG (percutaneous endoscopic gastrostomy) status ICD Codes: Z93.1 - Gastrostomy status SNOMED: 314226161, 654311569 (4) Renal failure ICD Codes: N19 - Unspecified kidney failure SNOMED: 31179172, 957049619 (5) Severe anemia ICD Codes: D64.9 - Anemia, unspecified SNOMED: 166842418 Assessment/Plan: s/p EGD gastric ulcer carafate fu H&H GTF fu labs supportive care prevacid Inder Mccauley MD Apr 14, 2020 09:28
--- NOTE | 2020-04-14 09:36 | Pulmonology Progress Note ---
Subjective ROS Limited/Unobtainable: No Interval Events: HD yesterday Constitutional: Reports: fever, other - resolved HEENT: Repors: no symptoms Respiratory: Reports: no symptoms Cardiovascular: Reports: no symptoms Gastrointestinal/Abdominal: Reports: diarrhea Allergies: Coded Allergies: No Known Allergies (Unverified , 10/10/17) All Systems: reviewed and negative except above Objective Last 24 Hour Vital Signs Date Time Temp Pulse Resp B/P (MAP) Pulse Ox O2 Delivery O2 Flow Rate FiO2 04/14/20 08:33 74 149/62 04/14/20 08:00 98.2 74 16 149/62 (91) 96 04/14/20 08:00 70 04/14/20 07:30 73 16 30 04/14/20 05:28 79 18 30 04/14/20 05:20 162/85 04/14/20 04:00 97.4 78 19 142/76 (98) 99 04/14/20 04:00 77 04/14/20 04:00 Mechanical Ventilator 04/14/20 04:00 30 04/14/20 03:16 76 16 30 04/14/20 01:54 88 25 30 04/14/20 00:01 151/88 04/14/20 00:00 Mechanical Ventilator 04/14/20 00:00 97.8 80 19 151/80 (103) 96 04/14/20 00:00 78 04/14/20 00:00 30 04/13/20 23:46 89 20 30 04/13/20 21:32 86 32 30 04/13/20 21:14 97.5 04/13/20 20:00 Mechanical Ventilator 04/13/20 20:00 97.2 85 18 157/78 (104) 96 04/13/20 20:00 96 04/13/20 20:00 30 04/13/20 19:14 104 35 30 04/13/20 17:06 149/71 04/13/20 16:00 30 04/13/20 16:00 82 04/13/20 16:00 Mechanical Ventilator 04/13/20 16:00 97.7 85 18 149/71 (97) 94 04/13/20 14:40 77 16 30 04/13/20 12:50 79 18 30 04/13/20 12:00 30 04/13/20 12:00 99.1 81 16 145/68 (93) 94 04/13/20 12:00 82 04/13/20 12:00 Mechanical Ventilator 04/13/20 12:00 151/71 04/13/20 10:35 76 18 30 Intake and Output 04/13/20 04/14/20 19:00 07:00 Intake Total 530 ml 440 ml Output Total 2000 ml Balance -1470 ml 440 ml Intake Free Water 50 ml Tube Feeding 480 ml 440 ml Hemodialysis UF 2000 ml # Bowel Movements 2 General Appearance: no acute distress HEENT: atraumatic, status post trach Respiratory: rhonchi - bilaterally Cardiovascular: normal rate, regular rhythm Extremities: other - edema bilateral Laboratory Tests 04/13/20 13:11: POC Whole Blood Glucose 97 04/14/20 03:10: White Blood Count 6.3, Red Blood Count 2.62L, Hemoglobin 7.9L, Hematocrit 23.2L, Mean Corpuscular Volume 89, Mean Corpuscular Hemoglobin 30.1, Mean Corpuscular Hemoglobin Concent 34.0, Red Cell Distribution Width 15.1H, Platelet Count 313, Mean Platelet Volume 4.9L, Neutrophils (%) (Auto) , Lymphocytes (%) (Auto) , Monocytes (%) (Auto) , Eosinophils (%) (Auto) , Basophils (%) (Auto) , Sodium Level 141, Potassium Level 3.3L, Chloride Level 103, Carbon Dioxide Level 30, Anion Gap 8, Blood Urea Nitrogen 80H, Creatinine 2.5H, Estimat Glomerular Filtration Rate 20.6, Glucose Level 107H, Calcium Level 8.3L, Phosphorus Level 1.7L, Magnesium Level 2.5H, Total Bilirubin 0.4, Aspartate Amino Transf (AST/SGOT) 34, Alanine Aminotransferase (ALT/SGPT) 15, Alkaline Phosphatase 193H , Total Protein 5.8L, Albumin 1.3L, Globulin 4.5, Albumin/Globulin Ratio 0.3L Current Medications Medications (Trade) Dose Ordered Sig/Penny Route PRN Reason Start Time Stop Time Status Last Admin Dose Admin Amlodipine Besylate (Norvasc) 5 mg DAILY ORAL 04/10/20 09:00 05/10/20 08:59 04/14/20 08:33 Aspirin (ASA) 81 mg DAILY GT 03/07/20 09:00 04/21/20 08:59 04/12/20 08:39 Chlorhexidine Gluconate (Ling-Hex 2%) 1 applic DAILY@2000 TOPIC 03/03/20 20:00 06/01/20 19:59 04/13/20 20:40 Dextrose (Dextrose 50%) 25 ml Q30M PRN IV Hypoglycemia 03/15/20 07:30 06/13/20 07:29 04/05/20 09:08 Dextrose (Dextrose 50%) 50 ml Q30M PRN IV Hypoglycemia 03/15/20 07:30 06/13/20 07:29 Famotidine (Pepcid) 20 mg BID GT 04/06/20 18:00 07/05/20 17:59 04/14/20 08:32 Hydralazine HCl (Apresoline) 25 mg Q6H PRN GT For High Blood Pressure 03/02/20 22:00 05/31/20 21:59 04/12/20 22:05 Hydralazine HCl (Apresoline) 50 mg Q6HR GT 04/07/20 00:00 07/06/20 00:00 04/14/20 05:20 Hydrocortisone (Anusol HC) 25 mg Q12HR RECTAL 03/23/20 21:00 06/21/20 08:59 04/14/20 08:32 Hydromorphone HCl (Dilaudid) 0.5 mg Q4H PRN IVP For Pain 04/09/20 22:30 04/16/20 22:29 04/13/20 20:44 Lansoprazole (Prevacid) 30 mg BID GT 04/13/20 09:00 05/13/20 08:59 04/14/20 08:32 Metoclopramide HCl (Reglan) 5 mg EVERY 6 HOURS NG 04/06/20 12:00 05/06/20 11:59 04/14/20 05:20 Sodium Hypochlorite (Dakin's Quarter Strength) 1 applic BEDTIME TOPIC 04/04/20 21:00 05/02/20 08:59 04/13/20 20:41 Sorbitol (sorbitoL) 30 ml Q6HR PRN ORAL Constipation 04/11/20 12:15 05/11/20 12:14 04/12/20 20:44 Sucralfate (Carafate) 1 gm EVERY 6 HOURS GT 03/17/20 18:00 06/09/20 08:59 04/14/20 05:20 Tramadol HCl (Ultram) 50 mg Q6H PRN GT Moderate Pain (Pain Scale 4-6) 04/09/20 22:30 04/16/20 22:29 04/13/20 09:33 Zinc Oxide (Zinc Oxide) 1 applic Q8HR TOPIC 03/25/20 22:00 06/22/20 17:59 04/14/20 05:21 Assessment/Plan Assessment/Plan 1. Chronic respiratory failure. - CT chest/abd/pelv: improving pleural effusion 2. Mechanical ventilation. - remains on 30% FiO2 saturating well - pulmonary hygiene 3. Chronic tracheostomy. 4. Chronic G-tube. 5. Anemia. - s/p transfusion - stool OB positive (03/02, 03/03, 03/22) - off anticoags 6. Renal failure. 7. Leukocytosis and sepsis. - WBC now wnl 8. Sepsis UTI 9. Gram positive cocci bacteremia - f/u BCx negative for growth 10. COVID-19 negative 11. Diarrhea - C. diff neg 12. Hypoglycemia - resolved 13. Bradycardia - no urgent indication for pacemaker per cardio 14. Gastric ulcer - on PPI -No active bleeding - GI following 15. Pleural effusion - small; insufficient volume for safe thoracentesis - on HD 16. thoracic aortic aneurysm - noted on CT imaging - pt needs emergent transfer out to [facility] for CT surgery evaluation, primary MD aware - Pt might not be a candidate for TAA repair 17. Ascites - s/p paracentesis (2), 2.3L out 18. DVT ppx - on SCD -Venous duplex ultrasound of legs negative for DVT (03/25) Noted discharge planning to [place] [facility]ically stable for discharge from pulmonary standpoint The care of this patient was discussed with my supervising physician Time spent for this encounter was approximately 31 minutes Cruz Wilson Apr 14, 2020 09:36
[2020-04-14] MEDS ORDERED: Potassium Phosphate 20 MM in NS 275 ML IV SCH (11:00)
--- NOTE | 2020-04-14 11:09 | NUR ---
*-*DISCHARGE PLANNING*-* PATIENT HAS BEEN REFERRED TO: [facility] P: [phone] S/W DELIA, WILL CALL BACK AFTER REVIEW.
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
[2020-04-14 12:00] VITALS: BP 140/62
--- NOTE | 2020-04-14 12:40 | NUR ---
*-*DISCHARGE PLANNING*-* PATIENT HAS BEEN REFERRED TO: [facility] P: [phone] ADMISSION NOT AVAILABLE, NO ANSWER, CALL BACK.
--- NOTE | 2020-04-14 12:48 | NUR ---
*-*DISCHARGE PLANNING*-* PATIENT HAS BEEN REFERRED TO: [facility] P: [phone] S/W PAVITHRA, WILL CALL BACK AFTER REVIEW.
--- NOTE | 2020-04-14 13:37 | Nephrology Progress Note ---
Assessment/Plan Problem List: (1) Renal failure (ARF), acute on chronic (2) Anemia (3) Hyponatremia (4) Respiratory failure Assessment (1) JAVIER (acute kidney injury) (2) Renal failure (ARF), acute on chronic (3) Feeding by G-tube (4) Tracheostomy in place (5) Electrolyte imbalance, hyponatremia (6) Anemia, severe (7) Respiratory failure, acute and chronic (8) history of elevated lipase, pancreatitis (9) Elevated troponin I (10) Sepsis Plan April 14: Labs reviewed. Dialyzed yesterday. Abnormal electrolytes and low phosphorus addressed. Continue to monitor renal parameters and dialysis arrangement as needed. April 13: No labs drawn today. Due for hemodialysis today. Will check lab tomorrow. Continue per consultants. April 12: Labs reviewed. Low phosphorus replaced. Hemodialysis tomorrow. Continue per consultants. April 11: No labs drawn today. Will check lab tomorrow. Last dialysis April 08. Continue per consultants. April 10: Labs reviewed. Renal parameters stable. Hemoglobin higher. Hemodialysis as needed. Low potassium addressed. April 09: Dialyzed yesterday. Discussed with RN. Hemoglobin low. Suggest transfusion 1 unit of packed RBCs. April 08: Dialysis today. Blood pressure medication adjusted. Check lab tomorrow. Continue per consultants. April 07: Patient remains full code. Heart rate improved. Medication list reviewed. Labs reviewed. Will order dialysis for tomorrow. Continue per c onsultants. April 06: Full code. Intubated via trach on ventilator. FiO2 30%. Blood sugar stable. D50 will be discontinued. Continue feeding. Dialysis as needed. April 05: Remains in ICU. Low heart rate persists. Will initiate low-dose hydralazine with blood pressure parameters. Last dialysis April 03. Blood sugar stable on 30 mL of D10 hourly. GT feeding started. Continue to monitor electrolytes renal parameters and arrange for dialysis as needed. April 04: Patient currently in ICU due to low heart rate. Blood pressure is stable. Dialyzed yesterday. Labs reviewed. Renal parameters and electrolytes stable. Medication list reviewed. Continue per cardiology with regard to bradycardia. April 03: Labs reviewed. We will order dialysis today. Continue per consultants. April 02: Labs reviewed. No need for dialysis today. Continue to monitor renal parameters. April 01: Labs reviewed. Renal parameters stable. No dialysis today. Continue per consultants. March 31: No labs drawn today. Renal parameters stable as of yesterday. Will check lab tomorrow. Dialysis as needed. March 30: Labs reviewed. Low phosphorus addressed. Continue per PMD and consultants. Dialysis as needed. March 29: Dialyzed yesterday. No CHEM panel drawn today. We will continue to monitor renal parameters. Continue per consultants. March 28: Due for dialysis today. Labs reviewed. Stable from renal standpoint of view. March 27: Due for dialysis tomorrow. Labs reviewed. Medication list reviewed. Continue per current management. March 26: Last dialyzed March 24. Labs reviewed. Low phosphorus replaced. Continue to monitor renal parameters. Dialysis as needed. March 25: Dialyzed yesterday. Labs reviewed. Low phosphorus replaced. Continue per current management. Hemoglobin higher. March 24: Labs reviewed. Due for dialysis today. Continue per current management. Hemoglobin lower. Transfusion per blueprint developer. March 23: Labs reviewed. Dialyzed yesterday. Next dialysis tomorrow. Anemia management per blueprint developer. March 22: Labs reviewed. Due for dialysis today. Discussed with RN. Agree with discontinuation of the Norman catheter. Hemoglobin lower. Transfusion per blueprint developer. March 21: Labs reviewed. Will arrange for dialysis tomorrow. Continue per consultants. Will hold phosphorus binders at this time. March 20: Labs reviewed. Patient was dialyzed yesterday. Electrolyte abnormalities corrected. Continue per current management. March 19: Due for dialysis today. Abnormal labs noted. All will be corrected after dialysis. March 18: Labs reviewed. Will dialyze tomorrow. Patient being transfused today. Patient due for abdominal paracentesis. We will keep the Norman in. Continue to monitor renal parameters and dialyze as needed. March 17: No CHEM panel done today. CBC reviewed. Hemoglobin is lowering. Dialyzed yesterday. Will check lab tomorrow. Continue per consultants. March 16: Labs reviewed. Due for dialysis today. Hemoglobin 10.2 today. Continue to monitor renal parameters. March 15: Labs reviewed. Dialyzed March 13. Due for dialysis March 16. Hemoglobin lower. 1 unit of packed RBCs ordered. Per orders. March 14: No labs drawn today. Dialyzed yesterday. Full code. Will check lab tomorrow. Dialysis as needed. March 13: Labs reviewed. Due for dialysis today. Patient remains full code. Continue per current management. March 12: Labs reviewed. Dialyzed yesterday. Due for dialysis tomorrow. Discussed with RN. Patient full code. Continue per current management. March 11: Labs reviewed. Dialyzed this morning. Phosphorus binders dose adjusted. Continue per consultants. Continue to monitor renal parameters. CT: Extensive thoracoabdominal aortic dissection March 10: Labs reviewed. Will order dialysis tomorrow. Phosphorus binders added. Continue per consultants. March 09: No chemistry panel done today. Patient dialyzed yesterday. On dextrose 10% for hypoglycemia. We will check labs tomorrow. Dialysis as needed. March 08: Labs reviewed. Will order dialysis today. Blood sugar low. D10 50 cc an hour started. Continue as is. March 07: Labs reviewed. Dialyzed March 05 and March 06. Continue to monitor renal parameters and hemoglobin. Abnormal electrolytes addressed. IV fluids stopped. Per orders. March 06: Labs reviewed. Dialyzed yesterday. Will reorder dialysis for today. Continue to monitor renal parameters. Hemoglobin 8.4. Patient full c ode. March 05: Labs reviewed. Patient did not receive dialysis until this morning. Proceed with dialysis. Continue to monitor renal parameters and hemoglobin and hematocrit. March 04: Labs reviewed. Hemoglobin lower. Patient actively bleeding. Was not dialyzed yesterday. Due for GI endoscopy. Continue fluid challenge. Transfusion as needed. Dialysis today. March 03: Labs reviewed. Dialysis ordered. Blood pressure medication all discontinued due to hypotensive state. Albumin bolus given. Continue to monitor renal parameters. Medication list reviewed. Midodrin for low blood pressure ordered Subjective ROS Limited/Unobtainable: Yes Objective Objective Last 24 Hour Vital Signs Date Time Temp Pulse Resp B/P (MAP) Pulse Ox O2 Delivery O2 Flow Rate FiO2 04/14/20 12:55 140/62 04/14/20 12:00 30 04/14/20 12:00 74 04/14/20 12:00 98.0 72 17 140/62 (88) 96 04/14/20 12:00 Mechanical Ventilator 04/14/20 11:50 70 17 30 04/14/20 08:33 74 149/62 04/14/20 08:00 98.2 74 16 149/62 (91) 96 04/14/20 08:00 Mechanical Ventilator 04/14/20 08:00 70 04/14/20 08:00 30 04/14/20 07:30 73 16 30 04/14/20 05:28 79 18 30 04/14/20 05:20 162/85 04/14/20 04:00 97.4 78 19 142/76 (98) 99 04/14/20 04:00 77 04/14/20 04:00 Mechanical Ventilator 04/14/20 04:00 30 04/14/20 03:16 76 16 30 04/14/20 01:54 88 25 30 04/14/20 00:01 151/88 04/14/20 00:00 Mechanical Ventilator 04/14/20 00:00 97.8 80 19 151/80 (103) 96 04/14/20 00:00 78 04/14/20 00:00 30 04/13/20 23:46 89 20 30 04/13/20 21:32 86 32 30 04/13/20 21:14 97.5 04/13/20 20:00 Mechanical Ventilator 04/13/20 20:00 97.2 85 18 157/78 (104) 96 04/13/20 20:00 96 04/13/20 20:00 30 04/13/20 19:14 104 35 30 04/13/20 17:06 149/71 04/13/20 16:00 30 04/13/20 16:00 82 04/13/20 16:00 Mechanical Ventilator 04/13/20 16:00 97.7 85 18 149/71 (97) 94 04/13/20 14:40 77 16 30 Intake and Output 04/13/20 04/14/20 19:00 07:00 Intake Total 530 ml 440 ml Output Total 2000 ml Balance -1470 ml 440 ml Intake Free Water 50 ml Tube Feeding 480 ml 440 ml Hemodialysis UF 2000 ml # Bowel Movements 2 Current Medications Medications (Trade) Dose Ordered Sig/Penny Route PRN Reason Start Time Stop Time Status Last Admin Dose Admin Amlodipine Besylate (Norvasc) 5 mg DAILY ORAL 04/10/20 09:00 05/10/20 08:59 04/14/20 08:33 Aspirin (ASA) 81 mg DAILY GT 03/07/20 09:00 04/21/20 08:59 04/12/20 08:39 Chlorhexidine Gluconate (Ling-Hex 2%) 1 applic DAILY@1999 TOPIC 03/03/20 20:00 06/01/20 19:59 04/13/20 20:40 Dextrose (Dextrose 50%) 25 ml Q30M PRN IV Hypoglycemia 03/15/20 07:30 06/13/20 07:29 04/05/20 09:08 Dextrose (Dextrose 50%) 50 ml Q30M PRN IV Hypoglycemia 03/15/20 07:30 06/13/20 07:29 Hydralazine HCl (Apresoline) 25 mg Q6H PRN GT For High Blood Pressure 03/02/20 22:00 05/31/20 21:59 04/12/20 22:05 Hydralazine HCl (Apresoline) 50 mg Q6HR GT 04/07/20 00:00 07/06/20 00:00 04/14/20 12:55 Hydrocortisone (Anusol HC) 25 mg Q12HR RECTAL 03/23/20 21:00 06/21/20 08:59 04/14/20 08:32 Hydromorphone HCl (Dilaudid) 0.5 mg Q4H PRN IVP For Pain 04/09/20 22:30 04/16/20 22:29 04/13/20 20:44 Lansoprazole (Prevacid) 30 mg BID GT 04/13/20 09:00 05/13/20 08:59 04/14/20 08:32 Sodium Hypochlorite (Dakin's Quarter Strength) 1 applic BEDTIME TOPIC 04/04/20 21:00 05/02/20 08:59 04/13/20 20:41 Sorbitol (sorbitoL) 30 ml Q6HR PRN ORAL Constipation 04/11/20 12:15 05/11/20 12:14 04/12/20 20:44 Sucralfate (Carafate) 1 gm EVERY 6 HOURS GT 03/17/20 18:00 06/09/20 08:59 04/14/20 12:55 Tramadol HCl (Ultram) 50 mg Q6H PRN GT Moderate Pain (Pain Scale 4-6) 04/09/20 22:30 04/16/20 22:29 04/13/20 09:33 Zinc Oxide (Zinc Oxide) 1 applic Q8HR TOPIC 03/25/20 22:00 06/22/20 17:59 04/14/20 05:21 Laboratory Tests 04/14/20 03:10: White Blood Count 6.3, Red Blood Count 2.62L, Hemoglobin 7.9L, Hematocrit 23.2L, Mean Corpuscular Volume 89, Mean Corpuscular Hemoglobin 30.1, Mean Corpuscular Hemoglobin Concent 34.0, Red Cell Distribution Width 15.1H, Platelet Count 313, Mean Platelet Volume 4.9L, Neutrophils (%) (Auto) , Lymphocytes (%) (Auto) , Monocytes (%) (Auto) , Eosinophils (%) (Auto) , Basophils (%) (Auto) , Sodium Level 141, Potassium Level 3.3L, Chloride Level 103, Carbon Dioxide Level 30, Anion Gap 8, Blood Urea Nitrogen 80H, Creatinine 2.5H, Estimat Glomerular Filtration Rate 20.6, Glucose Level 107H, Calcium Level 8.3L, Phosphorus Level 1.7L, Magnesium Level 2.5H, Total Bilirubin 0.4, Aspartate Amino Transf (AST/SGOT) 34, Alanine Aminotransferase (ALT/SGPT) 15, Alkaline Phosphatase 193H , Total Protein 5.8L, Albumin 1.3L, Globulin 4.5, Albumin/Globulin Ratio 0.3L Height (Feet): 5 Height (Inches): 3.00 Weight (Pounds): 128 General Appearance: no apparent distress EENT: other - Trach to vent Cardiovascular: normal rate Respiratory/Chest: decreased breath sounds Abdomen: soft, distended Johnny Houston MD Apr 14, 2020 13:36
[2020-04-14] MEDS: HYDROmorphone 1mg/ml Carpuject IVP PRN ×2 (14:29→21:12)
[2020-04-14 16:00] VITALS: BP 142/56
--- NOTE | 2020-04-14 18:22 | Cardiology Progress Note ---
Subjective DATE OF SERVICE: Apr 14, 2020 BP control remains stable. Heart rates remain stable since dialysis resumed; last dialysis was yesterday. CT scan revealed extensive thoracoabd aortic dissection- Madison Type B No overall change in cardiovascular parameters. Objective Last 24 Hour Vital Signs Date Time Temp Pulse Resp B/P (MAP) Pulse Ox O2 Delivery O2 Flow Rate FiO2 04/14/20 17:32 142/56 04/14/20 16:00 Mechanical Ventilator 04/14/20 16:00 79 04/14/20 16:00 30 04/14/20 16:00 98.2 84 17 142/56 (84) 92 04/14/20 14:57 82 16 30 04/14/20 12:55 140/62 04/14/20 12:00 30 04/14/20 12:00 74 04/14/20 12:00 98.0 72 17 140/62 (88) 96 04/14/20 12:00 Mechanical Ventilator 04/14/20 11:50 70 17 30 04/14/20 08:33 74 149/62 04/14/20 08:00 98.2 74 16 149/62 (91) 96 04/14/20 08:00 Mechanical Ventilator 04/14/20 08:00 70 04/14/20 08:00 30 04/14/20 07:30 73 16 30 04/14/20 05:28 79 18 30 04/14/20 05:20 162/85 04/14/20 04:00 97.4 78 19 142/76 (98) 99 04/14/20 04:00 77 04/14/20 04:00 Mechanical Ventilator 04/14/20 04:00 30 04/14/20 03:16 76 16 30 04/14/20 01:54 88 25 30 04/14/20 00:01 151/88 04/14/20 00:00 Mechanical Ventilator 04/14/20 00:00 97.8 80 19 151/80 (103) 96 04/14/20 00:00 78 04/14/20 00:00 30 04/13/20 23:46 89 20 30 04/13/20 21:32 86 32 30 04/13/20 21:14 97.5 04/13/20 20:00 Mechanical Ventilator 04/13/20 20:00 97.2 85 18 157/78 (104) 96 04/13/20 20:00 96 04/13/20 20:00 30 04/13/20 19:14 104 35 30 HEENT: Thin Trach secretions RHYTHM: NSR, SB LUNGS: bilateral rhonchi - few, trach site clean CARDIAC: normal rate, regular rhythm, normal S1 and S2 ABDOMEN: normal bowel sounds, non tender, soft, G-Tube intact EXTREMITIES: normal range of motion, non-tender, normal inspection Laboratory Tests Test 04/14/20 03:10 White Blood Count 6.3 K/UL (4.8-10.8) Red Blood Count 2.62 M/UL (4.20-5.40) L Hemoglobin 7.9 G/DL (12.0-16.0) L Hematocrit 23.2 % (37.0-47.0) L Mean Corpuscular Volume 89 FL (80-99) Mean Corpuscular Hemoglobin 30.1 PG (27.0-31.0) Mean Corpuscular Hemoglobin Concent 34.0 G/DL (32.0-36.0) Red Cell Distribution Width 15.1 % (11.6-14.8) H Platelet Count 313 K/UL (150-450) Mean Platelet Volume 4.9 FL (6.5-10.1) L Neutrophils (%) (Auto) % (45.0-75.0) Lymphocytes (%) (Auto) % (20.0-45.0) Monocytes (%) (Auto) % (1.0-10.0) Eosinophils (%) (Auto) % (0.0-3.0) Basophils (%) (Auto) % (0.0-2.0) Sodium Level 141 MMOL/L (136-145) Potassium Level 3.3 MMOL/L (3.5-5.1) L Chloride Level 103 MMOL/L (98-107) Carbon Dioxide Level 30 MMOL/L (21-32) Anion Gap 8 mmol/L (5-15) Blood Urea Nitrogen 80 mg/dL (7-18) H Creatinine 2.5 MG/DL (0.55-1.30) H Estimat Glomerular Filtration Rate 20.6 mL/min (>60) Glucose Level 107 MG/DL (74-106) H Calcium Level 8.3 MG/DL (8.5-10.1) L Phosphorus Level 1.7 MG/DL (2.5-4.9) L Magnesium Level 2.5 MG/DL (1.8-2.4) H Total Bilirubin 0.4 MG/DL (0.2-1.0) Aspartate Amino Transf (AST/SGOT) 34 U/L (15-37) Alanine Aminotransferase (ALT/SGPT) 15 U/L (12-78) Alkaline Phosphatase 193 U/L (46-116) H Total Protein 5.8 G/DL (6.4-8.2) L Albumin 1.3 G/DL (3.4-5.0) L Globulin 4.5 g/dL Albumin/Globulin Ratio 0.3 (1.0-2.7) L Assessment/Plan Assessment/Plan Aortic dissections - Madison B Sepsis with recovered shock Sinus node disease with bradycardia Hx pacemaker explant Ischemic cardiomyopathy - hx CABG? Paroxysmal Atrial Fib Respiratory failure with trach Hx thoracic aortic aneurysm repair ESRD Anemia HypoPO4 Hypertension/HHD now with controlled BP Remains off beta blockers; would not resume despite benefit in setting of AAA with dissection, as she has repeatedly developed significant bradycardia. However, if she is to continue regular HD sessions 3x/wk, I would feel comfortable resuming carvedilol at low doses. Avoid metoclopramide, which can aggravate bradycardia. Favor regular HD/UF in this setting. 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
--- NOTE | 2020-04-14 18:56 | General Progress Note ---
Subjective Constitutional: Reports: no symptoms HEENT: Reports: no symptoms Cardiovascular: Reports: no symptoms Respiratory: Reports: no symptoms Gastrointestinal/Abdominal: Reports: no symptoms Neurologic/Psychiatric: Reports: depressed Endocrine: Reports: no symptoms Hematologic/Lymphatic: Reports: no symptoms Allergies: Coded Allergies: No Known Allergies (Unverified , 10/10/17) Objective Last 24 Hour Vital Signs Date Time Temp Pulse Resp B/P (MAP) Pulse Ox O2 Delivery O2 Flow Rate FiO2 04/14/20 17:32 142/56 04/14/20 16:00 Mechanical Ventilator 04/14/20 16:00 79 04/14/20 16:00 30 04/14/20 16:00 98.2 84 17 142/56 (84) 92 04/14/20 14:57 82 16 30 04/14/20 12:55 140/62 04/14/20 12:00 30 04/14/20 12:00 74 04/14/20 12:00 98.0 72 17 140/62 (88) 96 04/14/20 12:00 Mechanical Ventilator 04/14/20 11:50 70 17 30 04/14/20 08:33 74 149/62 04/14/20 08:00 98.2 74 16 149/62 (91) 96 04/14/20 08:00 Mechanical Ventilator 04/14/20 08:00 70 04/14/20 08:00 30 04/14/20 07:30 73 16 30 04/14/20 05:28 79 18 30 04/14/20 05:20 162/85 04/14/20 04:00 97.4 78 19 142/76 (98) 99 04/14/20 04:00 77 04/14/20 04:00 Mechanical Ventilator 04/14/20 04:00 30 04/14/20 03:16 76 16 30 04/14/20 01:54 88 25 30 04/14/20 00:01 151/88 04/14/20 00:00 Mechanical Ventilator 04/14/20 00:00 97.8 80 19 151/80 (103) 96 04/14/20 00:00 78 04/14/20 00:00 30 04/13/20 23:46 89 20 30 04/13/20 21:32 86 32 30 04/13/20 21:14 97.5 04/13/20 20:00 Mechanical Ventilator 04/13/20 20:00 97.2 85 18 157/78 (104) 96 04/13/20 20:00 96 04/13/20 20:00 30 04/13/20 19:14 104 35 30 Intake and Output 04/13/20 04/14/20 19:00 07:00 Intake Total 530 ml 510 ml Output Total 2000 ml Balance -1470 ml 510 ml Intake Free Water 50 ml 30 ml Tube Feeding 480 ml 480 ml Hemodialysis UF 2000 ml # Bowel Movements 2 Laboratory Tests 04/14/20 03:10: White Blood Count 6.3, Red Blood Count 2.62L, Hemoglobin 7.9L, Hematocrit 23.2L, Mean Corpuscular Volume 89, Mean Corpuscular Hemoglobin 30.1, Mean Corpuscular Hemoglobin Concent 34.0, Red Cell Distribution Width 15.1H, Platelet Count 313, Mean Platelet Volume 4.9L, Neutrophils (%) (Auto) , Lymphocytes (%) (Auto) , Monocytes (%) (Auto) , Eosinophils (%) (Auto) , Basophils (%) (Auto) , Sodium Level 141, Potassium Level 3.3L, Chloride Level 103, Carbon Dioxide Level 30, Anion Gap 8, Blood Urea Nitrogen 80H, Creatinine 2.5H, Estimat Glomerular Filtration Rate 20.6, Glucose Level 107H, Calcium Level 8.3L, Phosphorus Level 1.7L, Magnesium Level 2.5H, Total Bilirubin 0.4, Aspartate Amino Transf (AST/SGOT) 34, Alanine Aminotransferase (ALT/SGPT) 15, Alkaline Phosphatase 193H , Total Protein 5.8L, Albumin 1.3L, Globulin 4.5, Albumin/Globulin Ratio 0.3L Height (Feet): 5 Height (Inches): 3.00 Weight (Pounds): 128 General Appearance: WD/WN, mild distress EENT: normal ENT inspection Neck: supple Cardiovascular: normal rate, regular rhythm, no gallop/murmur, no JVD Respiratory/Chest: no respiratory distress, no accessory muscle use, decreased breath sounds Abdomen: normal bowel sounds, non tender, soft, no organomegaly, no mass Extremities: non-tender Neurologic: alert, responsive Assessment/Plan Status Narrative Patient condition remain unchanged she is hemodynamically stable afebrile alert normal attention span but no verbal response and appears easily tearful and ask why she tearful she responds she wants to go home the present time patient is afebrile without leukocytosis or tachycardia search for subacute unit which have dialysis is being done intensely she does not need to go to any cardiovascular unit as she is a Chase B and does not require any immediate cardiovascular intervention repeat laboratory tests will be done in a.. Lucas Vera MD, MD Apr 14, 2020 18:55
--- NOTE | 2020-04-14 19:14 | NUR ---
NURSE HAND-OFF REPORT: Important Events on Shift: na Patient Status: stable Diet: Nephro @40ml Pending Orders: na Pending Results/Labs:na Pending MD notification:na Latest Vital Signs: Temperature 98.2 , Pulse 79 , B/P 142 /56 , Respiratory Rate 17 , O2 SAT 92 , Mechanical Ventilator, O2 Flow Rate . Vital Sign Comment: stable EKG Rhythm: Sinus Rhythm Rhythm change?: N MD Notified?: N -Dr Екатерина HATFIELD Response: Order Received& Read Back Latest Chavarria Fall Score: 70 Fall Risk: High Risk Safety Measures: Call light Within Reach, Bed Alarm Zone 2, Side Rails Side Rails x3, Bed position Low and Locked. Fall Precautions: Yellow Socks Report given to ERASMO Sen.
--- NOTE | 2020-04-14 19:20 | NUR ---
NURSE NOTES: Pt report received from Vilma Khoury RN. pt condition remains unchanged. pt is alert and oriented times 2, able to respond yes or no to simple questions. pt is trach vented, sating 97% O2, no acute resp distress noted. pt bed is low, locked, armed, call light within reach, bed rails up times 3. will follow plan of care.
[2020-04-14 20:00] VITALS: BP 145/81
[2020-04-14] MEDS: Dyna-Hex 2% Top Sol 2oz TOPIC SCH (21:10)
[2020-04-14] MEDS: Dakin's 0.125% Soln (Quarter Strength) 16oz TOPIC SCH (21:11)
[2020-04-15] VITALS: BP 136/65
[2020-04-15 04:00] VITALS: BP 130/61
[2020-04-15] MEDS: HydrALAZINE 50mg tab GT SCH ×3 (05:15→17:32)
[2020-04-15] MEDS: Zinc Oxide Oint 2oz TOPIC SCH ×3 (05:16→21:41)
[2020-04-15] MEDS: Sucralfate 1gm tab GT SCH ×3 (05:16→17:32)
[2020-04-15 05:17] LABS: HEMATOCRIT 23.7 % (37.0-47.0); HEMOGLOBIN 7.9 G/DL (12.0-16.0); MEAN CORPUSCULAR VOLUME 89 FL (80-99); PLATELET COUNT 318 K/UL (150-450); RED BLOOD COUNT 2.66 M/UL (4.20-5.40); RED CELL DISTRIBUTION WIDTH 14.6 % (11.6-14.8); WHITE BLOOD COUNT 11.2 K/UL (4.8-10.8)
[2020-04-15 05:31] LABS: CALCIUM 7.9 MG/DL (8.5-10.1); CREATININE 2.9 MG/DL (0.55-1.30); POTASSIUM 3.7 MMOL/L (3.5-5.1)
--- NOTE | 2020-04-15 06:47 | Hematology/Onc Progress Note ---
Assessment/Plan Assessment/Plan # Leukocytosis, now with likely bacteremia, as per ID care --> Cxr: : Large left abiola consolidation/effusion --> wbc 30-->40-->27->30->29-->35->32-->28-->21->10.2-->6.6-->7,2 --> ABX angelo/vanc-->tobra/edson/vanc-->dapto/ceftazadine->off abx --> smear reviewed --> ID recs are noted # Anemia of chronic disease due to underlying chronic medical issues, multifactorial --> Anemia workup has been reviewed, cw acd --> No evidence of hemolysis is noted, peripheral smear has been reviewed. --> Hgb goal >7. Transfuse prn. --> Epogen required in prior --> Medications have been reviewed --> low threshold for gi evaluation in case has occult + --> hgb 1.9-->5-->7.1-->8.8-->8.1->7.5-> 8. 2-->6.8-->9.2-->8.4->7.7-->7.1-->8.8->8.7-->8.2-->8 --> 1 unit prbc1, 2 units 01/15, 03/02, 03/18, 03/24 --> gi eval as needed # Elevated tumor markers, cea and ca 19.9 --> reviewed prior 01/27/20 cat scan a/p --> no masses noted, hold off further extensive w/u # Thrombocytopenia likely reactive v medication induced --> plt 200-->129->91-->86->100->78-->86-->87-->125->135 --> transfuse as needed --> r/o dic, has been ruled out --> anticoag as needed # Coagulopathy with inr 1.5 --> consider vit k/ffp as needed preprocedure --> labs noted # Aortic dissection as seen on Ct ==> when stable, consider transfer hloc # JAVIER initially >2 --> on ivfs --> per renal is on HD # Elevated d-dimer, likely infection related --> venous duplex prior neg --> in prior neg # Dysphagia s/p peg --> as per gi # Thoracic aortic dissection --> s/p repair early 2017 # Chronic Resp failure -> s/p trach/vent # Psychiatric history on ativan/haldol # [facility] resident # Dvt ppx --> scds The timing of this note does not necessarily reflect the time of the patient was seen. Greatly appreciate consultation. Subjective Allergies: Coded Allergies: No Known Allergies (Unverified , 10/10/17) All Systems: reviewed and negative except above Subjective 03/04 nv, for 1 unit transfusion this am as hgb remains low, wbc better 03/05 egd was done did show large nonbleeding gastric ulcer, high tumor markers 03/06 nv, with davis overnight, bp remains stable, with occult + stool, roman Rn 03/09 nv, remains stable, on vanc/tobra/edson, meds reviewed, no bleeding 03/10 nv, on vent, no bleeding, receiving abx, no night sweats 03/11 nv, dw surgeon and pcp, with aortic dissection to transfer oc when stable 03/12 nv, labs reviewed, wbc 21, hgb 7.5, otherwise is comfortable 03/13 nv, labs noted, no bleeding, wbc 13, hgb improved, meds reviewed 03/15 nv, meds reviewed, labs noted, no bleeding, on vent 03/16 nv/tv, peg, meds noted, hgb remains stable, improved to 10 / s/p egd, with gastric ulceration noted, hgb stable 2/3 labs noted, hgb 6.8, to get 1 unit prbc, meds reviewed 03/19 hgb 9.2, plt 78, no hemoptysis, is comfortable 03/20 labs reviewed, meds noted, no bleeding, roman rn 03/22 wound treatment, vent, with gtube, labs reviewed, roman rn 03/23 labs reviewed, meds noted, no bleeding, with gt 03/24 large bm overnight that was bloody, hgb 7.1, roman rn 03/25 labs pending this am, comfortable, nsr, meds noted 03/26 nv, vent, with gt, labs reviewed, hgb 8.8 03/27 nv, vent, labs reviewed, with gt, hgb stable 03/29 nv, vent, labs pending, meds reviewed, no bleeding 03/30 nv, t/v, with gt feeds, labs reviewed, meds noted 03/31 nv, t/v, oral secretions were suctioned, meds reviewed 04/01 nv, t/v, labs are reviewed, meds noted, hgb 7.4 04/02 gt leaking, facial grimacing, labs noted, no bleeding, dw rn 04/03 nv, labs noted, no bleeding, dw rn, h/h stable 04/04 nv, labs reviewed, gtube replacement as per Dr. Mccauley 04/05 nv, labs reviewed, meds noted no bleeding, roman rn 04/06 nv, labs, meds noted, no bleeding, on vt, no new changes 04/07 nv, meds reviewed, labs noted, no bleeding, bp was high on, transferred to icu 04/08 nv, labs noted, no bleeding, evaluated at the bedside 04/09 nv, labs noted, no bleeding, hgb 7.6, repeat pending 04/10 nv is on gt feeds, labs reviewed, hgb better 04/12 nv, gt feeds, asleep, no night sweats, meds reviewed 04/13 sr, afebrile, nv, with gt, no bleeding, labs noted, sdu 04/14 nv, sr, afebrile, for placement to subacute with hd 04/15 nv, meds reviewed, labs are noted, hd placement Objective Objective Current Medications Medications (Trade) Dose Ordered Sig/Penny Route PRN Reason Start Time Stop Time Status Last Admin Dose Admin Amlodipine Besylate (Norvasc) 5 mg DAILY ORAL 04/10/20 09:00 05/10/20 08:59 04/14/20 08:33 Aspirin (ASA) 81 mg DAILY GT 03/07/20 09:00 04/21/20 08:59 04/12/20 08:39 Chlorhexidine Gluconate (Ling-Hex 2%) 1 applic DAILY@1999 TOPIC 03/03/20 20:00 06/01/20 19:59 04/14/20 21:10 Dextrose (Dextrose 50%) 25 ml Q30M PRN IV Hypoglycemia 03/15/20 07:30 06/13/20 07:29 04/05/20 09:08 Dextrose (Dextrose 50%) 50 ml Q30M PRN IV Hypoglycemia 03/15/20 07:30 06/13/20 07:29 Hydralazine HCl (Apresoline) 25 mg Q6H PRN GT For High Blood Pressure 03/02/20 22:00 05/31/20 21:59 04/12/20 22:05 Hydralazine HCl (Apresoline) 50 mg Q6HR GT 04/07/20 00:00 07/06/20 00:00 04/15/20 05:15 Hydrocortisone (Anusol HC) 25 mg Q12HR RECTAL 03/23/20 21:00 06/21/20 08:59 04/14/20 21:10 Hydromorphone HCl (Dilaudid) 0.5 mg Q4H PRN IVP For Pain 04/09/20 22:30 04/16/20 22:29 04/14/20 21:12 Lansoprazole (Prevacid) 30 mg BID GT 04/13/20 09:00 05/13/20 08:59 04/14/20 17:32 Sodium Hypochlorite (Dakin's Quarter Strength) 1 applic BEDTIME TOPIC 04/04/20 21:00 05/02/20 08:59 04/14/20 21:11 Sorbitol (sorbitoL) 30 ml Q6HR PRN ORAL Constipation 04/11/20 12:15 05/11/20 12:14 04/12/20 20:44 Sucralfate (Carafate) 1 gm EVERY 6 HOURS GT 03/17/20 18:00 06/09/20 08:59 04/15/20 05:16 Tramadol HCl (Ultram) 50 mg Q6H PRN GT Moderate Pain (Pain Scale 4-6) 04/09/20 22:30 04/16/20 22:29 04/13/20 09:33 Zinc Oxide (Zinc Oxide) 1 applic Q8HR TOPIC 03/25/20 22:00 06/22/20 17:59 04/15/20 05:16 Last 24 Hour Vital Signs Date Time Temp Pulse Resp B/P (MAP) Pulse Ox O2 Delivery O2 Flow Rate FiO2 04/15/20 05:15 138/61 04/15/20 04:00 98.2 85 19 130/61 (84) 97 04/15/20 04:00 84 04/15/20 04:00 30 04/15/20 04:00 Mechanical Ventilator 04/15/20 03:30 81 15 30 04/15/20 00:00 98.5 98 17 136/65 (88) 96 04/15/20 00:00 Mechanical Ventilator 04/14/20 23:30 101 22 30 04/14/20 23:25 126/60 04/14/20 21:42 98.0 04/14/20 20:00 Mechanical Ventilator 04/14/20 20:00 98.7 113 17 145/81 (102) 95 04/14/20 20:00 114 04/14/20 20:00 30 04/14/20 19:30 80 17 30 04/14/20 17:32 142/56 04/14/20 16:00 Mechanical Ventilator 04/14/20 16:00 79 04/14/20 16:00 30 04/14/20 16:00 98.2 84 17 142/56 (84) 92 04/14/20 14:57 82 16 30 04/14/20 12:55 140/62 04/14/20 12:00 30 04/14/20 12:00 74 04/14/20 12:00 98.0 72 17 140/62 (88) 96 04/14/20 12:00 Mechanical Ventilator 04/14/20 11:50 70 17 30 04/14/20 08:33 74 149/62 04/14/20 08:00 98.2 74 16 149/62 (91) 96 04/14/20 08:00 Mechanical Ventilator 04/14/20 08:00 70 04/14/20 08:00 30 04/14/20 07:30 73 16 30 04/14/20 05:28 79 18 30 04/14/20 05:20 162/85 04/14/20 04:00 97.4 78 19 142/76 (98) 99 04/14/20 04:00 77 04/14/20 04:00 Mechanical Ventilator 04/14/20 04:00 30 04/14/20 03:16 76 16 30 04/14/20 01:54 88 25 30 04/14/20 00:01 151/88 04/14/20 00:00 Mechanical Ventilator 04/14/20 00:00 97.8 80 19 151/80 (103) 96 04/14/20 00:00 78 04/14/20 00:00 30 04/13/20 23:46 89 20 30 04/13/20 21:32 86 32 30 04/13/20 21:14 97.5 04/13/20 20:00 Mechanical Ventilator 04/13/20 20:00 97.2 85 18 157/78 (104) 96 04/13/20 20:00 96 04/13/20 20:00 30 04/13/20 19:14 104 35 30 04/13/20 17:06 149/71 04/13/20 16:00 30 04/13/20 16:00 82 04/13/20 16:00 Mechanical Ventilator 04/13/20 16:00 97.7 85 18 149/71 (97) 94 04/13/20 14:40 77 16 30 04/13/20 12:50 79 18 30 04/13/20 12:00 30 04/13/20 12:00 99.1 81 16 145/68 (93) 94 04/13/20 12:00 82 04/13/20 12:00 Mechanical Ventilator 04/13/20 12:00 151/71 04/13/20 10:35 76 18 30 04/13/20 09:00 80 151/71 04/13/20 08:38 80 18 30 04/13/20 08:00 87 04/13/20 08:00 99.5 92 18 151/71 (97) 94 04/13/20 08:00 Mechanical Ventilator 04/13/20 08:00 30 04/13/20 07:46 78 18 30 Intake and Output 04/14/20 04/15/20 19:00 07:00 Intake Total 701.664 ml 360 ml Balance 701.664 ml 360 ml Intake Free Water 60 ml IV Total 281.664 ml Tube Feeding 360 ml 360 ml # Voids 1 Labs Test 04/13/20 13:11 04/14/20 03:10 04/15/20 03:25 POC Whole Blood Glucose 97 MG/DL (74-106) White Blood Count 6.3 K/UL (4.8-10.8) 11.2 K/UL (4.8-10.8) Red Blood Count 2.62 M/UL (4.20-5.40) 2.66 M/UL (4.20-5.40) Hemoglobin 7.9 G/DL (12.0-16.0) 7.9 G/DL (12.0-16.0) Hematocrit 23.2 % (37.0-47.0) 23.7 % (37.0-47.0) Mean Corpuscular Volume 89 FL (80-99) 89 FL (80-99) Mean Corpuscular Hemoglobin 30.1 PG (27.0-31.0) 29.8 PG (27.0-31.0) Mean Corpuscular Hemoglobin Concent 34.0 G/DL (32.0-36.0) 33.4 G/DL (32.0-36.0) Red Cell Distribution Width 15.1 % (11.6-14.8) 14.6 % (11.6-14.8) Platelet Count 313 K/UL (150-450) 318 K/UL (150-450) Mean Platelet Volume 4.9 FL (6.5-10.1) 5.2 FL (6.5-10.1) Neutrophils (%) (Auto) % (45.0-75.0) % (45.0-75.0) Lymphocytes (%) (Auto) % (20.0-45.0) % (20.0-45.0) Monocytes (%) (Auto) % (1.0-10.0) % (1.0-10.0) Eosinophils (%) (Auto) % (0.0-3.0) % (0.0-3.0) Basophils (%) (Auto) % (0.0-2.0) % (0.0-2.0) Sodium Level 141 MMOL/L (136-145) 141 MMOL/L (136-145) Potassium Level 3.3 MMOL/L (3.5-5.1) 3.7 MMOL/L (3.5-5.1) Chloride Level 103 MMOL/L (98-107) 104 MMOL/L (98-107) Carbon Dioxide Level 30 MMOL/L (21-32) 28 MMOL/L (21-32) Anion Gap 8 mmol/L (5-15) 9 mmol/L (5-15) Blood Urea Nitrogen 80 mg/dL (7-18) 91 mg/dL (7-18) Creatinine 2.5 MG/DL (0.55-1.30) 2.9 MG/DL (0.55-1.30) Estimat Glomerular Filtration Rate 20.6 mL/min (>60) 17.4 mL/min (>60) Glucose Level 107 MG/DL (74-106) 99 MG/DL (74-106) Calcium Level 8.3 MG/DL (8.5-10.1) 7.9 MG/DL (8.5-10.1) Phosphorus Level 1.7 MG/DL (2.5-4.9) Magnesium Level 2.5 MG/DL (1.8-2.4) Total Bilirubin 0.4 MG/DL (0.2-1.0) Aspartate Amino Transf (AST/SGOT) 34 U/L (15-37) Alanine Aminotransferase (ALT/SGPT) 15 U/L (12-78) Alkaline Phosphatase 193 U/L (46-116) Total Protein 5.8 G/DL (6.4-8.2) Albumin 1.3 G/DL (3.4-5.0) Globulin 4.5 g/dL Albumin/Globulin Ratio 0.3 (1.0-2.7) Height (Feet): 5 Height (Inches): 3.00 Weight (Pounds): 128 Objective Physical Exam: Vitals: reviewed General: NAD HEENT: nc, at Neck: supple ++trach/vent Chest: clear breath sounds bilaterally Cardiovascular: RRR, no s3, s4 Abdomen: soft, nontender, nd +gtube Extremities: no cce, normal range of motion Neuro: alert Evan Muhammad MD Apr 15, 2020 06:47
--- NOTE | 2020-04-15 07:19 | NUR ---
NURSE HAND-OFF REPORT: Important Events on Shift:[NA] Patient Status: [unchanged] Diet: [per Doctor order] Pending Orders: [NA] Pending Results/Labs:[NA] Pending MD notification:[NA] Latest Vital Signs: Temperature 98.2 , Pulse 85 , B/P 138 /61 , Respiratory Rate 19 , O2 SAT 97 , Mechanical Ventilator, O2 Flow Rate . Vital Sign Comment: [stable] EKG Rhythm: Sinus Rhythm Rhythm change?: N MD Notified?: N -Dr Екатерина HATFIELD Response: Order Received& Read Back Latest Chavarria Fall Score: 70 Fall Risk: High Risk Safety Measures: Call light Within Reach, Bed Alarm Zone 2, Side Rails Side Rails x3, Bed position Low and Locked. Fall Precautions: Yellow Socks Report given to [Aly RN].
--- NOTE | 2020-04-15 07:30 | NUR ---
NURSE NOTES: Received pt from ERASMO Sen, pt is sleeping, pt has trach to ventilator AC 14 TV 500 PEEP 5 FIO2 30%, Pt is on continues heart monitoring. pt has g tube in place is working well. pt has intact iv access L wrist 18G SL. All needs attended, bed is locked and is in the lowest position, call light within easy reach. will continue to monitor.
[2020-04-15 07:56] VITALS: BP 141/63
[2020-04-15 08:40] LABS: ALANINE AMINOTRANSFERASE 17 U/L (12-78); ALBUMIN 1.3 G/DL (3.4-5.0); ALKALINE PHOSPHATASE 165 U/L (46-116); ASPARTATE AMINO TRANSFERASE 37 U/L (15-37); BILIRUBIN,DIRECT 0.2 MG/DL (0.0-0.3); BILIRUBIN,TOTAL 0.5 MG/DL (0.2-1.0); PHOSPHORUS 2.8 MG/DL (2.5-4.9)
--- NOTE | 2020-04-15 08:54 | Infectious Diseases Prog Note ---
Assessment/Plan 49yo F with: MDR Kleb pna bacteremia AMS Anemia to 1.9 on admission 03/02 Leukocytosis to 40, improving GPC bacteremia UTI Pneumonia c/b mod-large R pleural effusion and small L pleural effusion - compressive atelectasis Hypotension 03/02 BCx 1/2 +Staph epi, 12 +Staph haemolyticus (m/l skin colonizers) UA+, UCx >100k P.stuartii (S-angelo) & CRE P.mirablis (R-polyB/colistin, S- tobramycin, per [facility] is "intrinsically resistant to Avycaz/Zerbaxa" not clear why to me and they are unable to elaborate more) COVID rapid neg, PCR neg CXR: Tracheostomy again demonstrated. Interim placement of a right jugular tunneled dialysis catheter. There is infiltrate and volume loss in the left lung, particularly in the perihilar region, suprahilar region, and base. Consolidation at the lung base is similar. The perihilar and suprahilar region consolidation is new. The right lung pleural space are clear. C.dif neg 03/03 BCx NTD 03/06 BCx 2/2 +MDR Kleb pna (arnett-R, including R-polyB, colistin), 02/14 +E.faecium VRE (R-amp, S-linezolid) 03/08 BCx NTD 03/09 CT CAP: Very limited exam, as described, due to massive anasarca. This could limit visualization of the discrete fluid collection such as an abscess. Extensive thoracoabdominal aortic dissection, as described above. Current flap begins just distal to the left subclavian artery origin; per report, there is history of surgical repair so there may have been surgical repair of the ascending thoracic aorta. Bilateral pleural effusions, slightly smaller than on earlier exams. Extensive atelectasis as a result. Extensive pulmonary par enchymal disease as detailed above. This may reflect pneumonia or pulmonary edema or both. Evidence of pulmonary arterial hypertension, with dilatation of the pulmonary artery. Considerable ascites fluid. 03/11 Chest US: Small right, trace left pleural effusions, insufficient for safe thoracentesis AF Sepsis Leukocytosis Hypoxia on vent Pneumonia c/b L pleural effusion (recurrent, prior determined to be transudative) - s/p thora 01/21, 1050cc removed Volume overload, BNP >35,0000, likely 2/2 progressive CKD --> ESRD ?Pancreatitis, Lipase >2000 Acute anemia to 5s CONS bacteremia, ?contaminant Aflutter w/ RVR 01/13 BCx 2/2 +S. epi COVID PCR neg Flu neg CXR: Large left pleural effusion. Bilateral interstitial and airspace infiltrates versus edema MRSA nares neg 01/16 BCx NTD 01/17 BCx /2 +Staph auricularis (skin colonizer) 01/18 Resp cx +MDR CRE PsA (S-gent, I-colistin, R-polyB) (Intermediate to Zerbaxa, Resistant to Avycaz) 01/18 C.dif neg 01/18 CXR: Similar opacification of the left hemithorax likely representing combination of pleural effusion with atelectasis versus pneumonia/edema. Decreased but persistent hazy opacity throughout the right lung may represent edema versus infectious/inflammatory process. 01/20 BCx NTD 01/21 L thora 1050 cc removed, cx NTD 01/25 Wound cx from Gtube site +CRE Kleb pna (arnett-R) and MDR PsA (colonizers) 01/26 CT A/P: Limited exam, due to severe diffuse anasarca. Ascites. Bilateral pleural effusions. Basilar pulmonary atelectatic changes and consolidation. Gastrostomy. Atrophic left kidney with a nephroureteral stents again demonstrated. Possible retrococcygeal decubitus changes. Correlate with clinical findings, consider MRI if there is concern for sacral osteomyelitis. Right hip intertrochanteric fracture, also previously demonstrated. Left femoral dialysis catheter. Nonspecific right lobe liver lesion is unchanged, not well- demonstrated. ctasia bordering on aneurysmal dilatation and possible chronic dissection of the distal thoracic aorta, also previously described. JAVIER on CKD On previous admission Sep-Oct 2019 required HD for short period Going to start HD this admission again R/o COVID 01/14 COVID PCR neg 12/29 neg at per report H/o UTI 10/15 u/a wbc 30-40, nit neg, leuk +3; ucx ESBL P. mirablis, ESBL M. morganii //20 u/a wbc tnct, nit neg, leuk +3; ucx >100k MDR P. stuarti (S Ceftriaxone, Meropenem) 8/25 u/a wbc tnct, nit neg, leuk ; ucx >100k VRE 10/15/19 u/a wbc tnct; ucx >100k ESBL P. stuarti (S ertapenem, aztreonam) H/o transudative pleural effusion 11/28 Sp Thora (w: 169, PMN: 2%, L: 49% , LDH: 57, prot 2.5); cx Neg H/o PNA 10/15/19 Resp cx ESBL P. mirabilis, MDR P.a. (S only to Gent) 09/22 Resp cx + MDR PsA (S-gent; I-colistin; R-levofloxacin, Zosyn, angelo) 09/16/19 Sp cx ESBL P. mirablis H/o PPM site (pocket) infection and pocket abscess 2ry to S. epi-11/2018, sp >6weeks IV vancomycin 11/27 SP ABBIE: no evidence for vegetation on any of the valves 11/26/18 SP PPM removal: OR findings:The fibrous capsule enclosing the generator was then opened and there was a yahnr-[id number] amount of yellowish fluid drainage. The generator was then removed.Atrial and ventricular leads were detached. The necrotic tissue of the pocket was then removed and the pocket was flushed with an antibiotic solution. Capsule, wound tissue and lead tip cx: Neg 2d echo: no vegetation seen US chest: 4.6 x 3.4 x 0.9 cm hypoechoic/anechoic area overlying left chest pacemaker power pack. This could represent either a discrete fluid collection or a focal area of very edematous tissue. Infected fluid pocket also possible. 11/18 Bcx 3/4 S. epi; 11/20 Bcx neg; 11/24 Bcx Neg; 11/27 Bcx Neg CAD s/p CABG GERD/gastritis Afib HTN Dysphagia sp GT Aortic dissection s/p repair 2017 S/p PPM Parkinson's Disease Schizophrenia Anxiety COPD Chronic resp failure s/p trach Hx of tracheal bleeding [place] resident ([facility]) VRE and MRSA colonized Plan: Monitor off abx 03/21 SP daptomycin #12, Avycaz #16 for VRE and MDR Kleb bacteremia 03/16 SP tobramycin IV #10 for resistant UTI 03/10/20 SP edson #4 empiric, vanco #9 01/31 SP angelo/inh tobra #10 for pna 01/23 SP vanco IV #10 given CONS/GPC bacteremia 01/16 SP Zosyn #2 01/14 SP dex 10mg in ED 12/10 SP IV Gentamycin #10 12/07 SP Meropenem #10 12/01 SP IV Vancomycin #5 11/28 Sp Cefepime #2 and IV Gentamycin x1 Monitor CBC/CMP Monitor temp curve, hemodynamics Monitor resp status D/w RN Thank you for this consult. [facility] will continue to follow. Subjective Allergies: Coded Allergies: No Known Allergies (Unverified , 10/10/17) Afebrile Mild Leukocytosis On vent satting well Awake and following Objective Last 24 Hour Vital Signs Date Time Temp Pulse Resp B/P (MAP) Pulse Ox O2 Delivery O2 Flow Rate FiO2 04/15/20 08:00 Mechanical Ventilator 04/15/20 08:00 30 04/15/20 07:56 98.8 82 20 141/63 (89) 95 04/15/20 05:15 138/61 04/15/20 04:00 98.2 85 19 130/61 (84) 97 04/15/20 04:00 84 04/15/20 04:00 30 04/15/20 04:00 Mechanical Ventilator 04/15/20 03:30 81 15 30 04/15/20 00:00 98.5 98 17 136/65 (88) 96 04/15/20 00:00 Mechanical Ventilator 04/14/20 23:30 101 22 30 04/14/20 23:25 126/60 04/14/20 21:42 98.0 04/14/20 20:00 Mechanical Ventilator 04/14/20 20:00 98.7 113 17 145/81 (102) 95 04/14/20 20:00 114 04/14/20 20:00 30 04/14/20 19:30 80 17 30 04/14/20 17:32 142/56 04/14/20 16:00 Mechanical Ventilator 04/14/20 16:00 79 04/14/20 16:00 30 04/14/20 16:00 98.2 84 17 142/56 (84) 92 04/14/20 14:57 82 16 30 04/14/20 12:55 140/62 04/14/20 12:00 30 04/14/20 12:00 74 04/14/20 12:00 98.0 72 17 140/62 (88) 96 04/14/20 12:00 Mechanical Ventilator 04/14/20 11:50 70 17 30 Height (Feet): 5 Height (Inches): 3.00 Weight (Pounds): 128 Gen: NAD on Vent 30% O2 HEENT: NCAT, trach Pulm: BL chest rise on vent Abd: Soft, ND, +PEG Skin: No visible rashes Lines: R chest Permacath dressing c/d/i Laboratory Tests Test 04/15/20 03:20 04/15/20 03:25 Phosphorus Level 2.8 MG/DL (2.5-4.9) Magnesium Level 2.5 MG/DL (1.8-2.4) H Total Bilirubin 0.5 MG/DL (0.2-1.0) Direct Bilirubin 0.2 MG/DL (0.0-0.3) Aspartate Amino Transf (AST/SGOT) 37 U/L (15-37) Alanine Aminotransferase (ALT/SGPT) 17 U/L (12-78) Alkaline Phosphatase 165 U/L (46-116) H Total Protein 5.7 G/DL (6.4-8.2) L Albumin 1.3 G/DL (3.4-5.0) L White Blood Count 11.2 K/UL (4.8-10.8) #H Red Blood Count 2.66 M/UL (4.20-5.40) L Hemoglobin 7.9 G/DL (12.0-16.0) L Hematocrit 23.7 % (37.0-47.0) L Mean Corpuscular Volume 89 FL (80-99) Mean Corpuscular Hemoglobin 29.8 PG (27.0-31.0) Mean Corpuscular Hemoglobin Concent 33.4 G/DL (32.0-36.0) Red Cell Distribution Width 14.6 % (11.6-14.8) Platelet Count 318 K/UL (150-450) Mean Platelet Volume 5.2 FL (6.5-10.1) L Neutrophils (%) (Auto) % (45.0-75.0) Lymphocytes (%) (Auto) % (20.0-45.0) Monocytes (%) (Auto) % (1.0-10.0) Eosinophils (%) (Auto) % (0.0-3.0) Basophils (%) (Auto) % (0.0-2.0) Neutrophils % (Manual) Pending Lymphocytes % (Manual) Pending Platelet Estimate Pending Platelet Morphology Pending Sodium Level 141 MMOL/L (136-145) Potassium Level 3.7 MMOL/L (3.5-5.1) Chloride Level 104 MMOL/L (98-107) Carbon Dioxide Level 28 MMOL/L (21-32) Anion Gap 9 mmol/L (5-15) Blood Urea Nitrogen 91 mg/dL (7-18) H Creatinine 2.9 MG/DL (0.55-1.30) H Estimat Glomerular Filtration Rate 17.4 mL/min (>60) Glucose Level 99 MG/DL (74-106) Calcium Level 7.9 MG/DL (8.5-10.1) L Current Medications Medications (Trade) Dose Ordered Sig/Penny Route PRN Reason Start Time Stop Time Status Last Admin Dose Admin Amlodipine Besylate (Norvasc) 5 mg DAILY ORAL 04/10/20 09:00 05/10/20 08:59 04/14/20 08:33 Aspirin (ASA) 81 mg DAILY GT 03/07/20 09:00 04/21/20 08:59 04/12/20 08:39 Chlorhexidine Gluconate (Ling-Hex 2%) 1 applic DAILY@1999 TOPIC 03/03/20 20:00 06/01/20 19:59 04/14/20 21:10 Dextrose (Dextrose 50%) 25 ml Q30M PRN IV Hypoglycemia 03/15/20 07:30 06/13/20 07:29 04/05/20 09:08 Dextrose (Dextrose 50%) 50 ml Q30M PRN IV Hypoglycemia 03/15/20 07:30 06/13/20 07:29 Hydralazine HCl (Apresoline) 25 mg Q6H PRN GT For High Blood Pressure 03/02/20 22:00 05/31/20 21:59 04/12/20 22:05 Hydralazine HCl (Apresoline) 50 mg Q6HR GT 04/07/20 00:00 07/06/20 00:00 04/15/20 05:15 Hydrocortisone (Anusol HC) 25 mg Q12HR RECTAL 03/23/20 21:00 06/21/20 08:59 04/14/20 21:10 Hydromorphone HCl (Dilaudid) 0.5 mg Q4H PRN IVP For Pain 04/09/20 22:30 04/16/20 22:29 04/14/20 21:12 Lansoprazole (Prevacid) 30 mg BID GT 04/13/20 09:00 05/13/20 08:59 04/14/20 17:32 Sodium Hypochlorite (Dakin's Quarter Strength) 1 applic BEDTIME TOPIC 04/04/20 21:00 05/02/20 08:59 04/14/20 21:11 Sorbitol (sorbitoL) 30 ml Q6HR PRN ORAL Constipation 04/11/20 12:15 05/11/20 12:14 04/12/20 20:44 Sucralfate (Carafate) 1 gm EVERY 6 HOURS GT 03/17/20 18:00 06/09/20 08:59 04/15/20 05:16 Tramadol HCl (Ultram) 50 mg Q6H PRN GT Moderate Pain (Pain Scale 4-6) 04/09/20 22:30 04/16/20 22:29 04/13/20 09:33 Zinc Oxide (Zinc Oxide) 1 applic Q8HR TOPIC 03/25/20 22:00 06/22/20 17:59 04/15/20 05:16 Deni Gilbert MD Apr 15, 2020 08:54
[2020-04-15] MEDS: Aspirin Baby 81mg GT SCH (09:09)
[2020-04-15] MEDS: Hydrocortisone 25mg supp RECTAL SCH ×2 (09:09→20:20)
[2020-04-15] MEDS: HYDROmorphone 1mg/ml Carpuject IVP PRN ×2 (09:10→17:33)
--- NOTE | 2020-04-15 09:35 | General Progress Note ---
Subjective ROS Limited/Unobtainable: No Allergies: Coded Allergies: No Known Allergies (Unverified , 10/10/17) Objective Last 24 Hour Vital Signs Date Time Temp Pulse Resp B/P (MAP) Pulse Ox O2 Delivery O2 Flow Rate FiO2 04/15/20 09:09 82 141/63 04/15/20 08:00 Mechanical Ventilator 04/15/20 08:00 30 04/15/20 07:56 98.8 82 20 141/63 (89) 95 04/15/20 05:15 138/61 04/15/20 04:00 98.2 85 19 130/61 (84) 97 04/15/20 04:00 84 04/15/20 04:00 30 04/15/20 04:00 Mechanical Ventilator 04/15/20 03:30 81 15 30 04/15/20 00:00 98.5 98 17 136/65 (88) 96 04/15/20 00:00 Mechanical Ventilator 04/14/20 23:30 101 22 30 04/14/20 23:25 126/60 04/14/20 21:42 98.0 04/14/20 20:00 Mechanical Ventilator 04/14/20 20:00 98.7 113 17 145/81 (102) 95 04/14/20 20:00 114 04/14/20 20:00 30 04/14/20 19:30 80 17 30 04/14/20 17:32 142/56 04/14/20 16:00 Mechanical Ventilator 04/14/20 16:00 79 04/14/20 16:00 30 04/14/20 16:00 98.2 84 17 142/56 (84) 92 04/14/20 14:57 82 16 30 04/14/20 12:55 140/62 04/14/20 12:00 30 04/14/20 12:00 74 04/14/20 12:00 98.0 72 17 140/62 (88) 96 04/14/20 12:00 Mechanical Ventilator 04/14/20 11:50 70 17 30 Intake and Output 04/14/20 04/15/20 19:00 07:00 Intake Total 701.664 ml 360 ml Balance 701.664 ml 360 ml Intake Free Water 60 ml IV Total 281.664 ml Tube Feeding 360 ml 360 ml # Voids 1 Laboratory Tests 04/15/20 03:20: Phosphorus Level 2.8, Magnesium Level 2.5H, Total Bilirubin 0.5, Direct Bilirubin 0.2, Aspartate Amino Transf (AST/SGOT) 37, Alanine Aminotransferase (ALT/SGPT) 17, Alkaline Phosphatase 165H, Total Protein 5.7L, Albumin 1.3L 04/15/20 03:25: White Blood Count 11.2#H, Red Blood Count 2.66L, Hemoglobin 7.9L, Hematocrit 23.7L, Mean Corpuscular Volume 89, Mean Corpuscular Hemoglobin 29.8, Mean Corpuscular Hemoglobin Concent 33.4, Red Cell Distribution Width 14.6, Platelet Count 318, Mean Platelet Volume 5.2L, Neutrophils (%) (Auto) , Lymphocytes (%) (Auto) , Monocytes (%) (Auto) , Eosinophils (%) (Auto) , Basophils (%) (Auto) , Neutrophils % (Manual) [Pending], Lymphocytes % (Manual) [Pending], Platelet Estimate [Pending], Platelet Morphology [Pending], Sodium Level 141, Potassium Level 3.7, Chloride Level 104, Carbon Dioxide Level 28, Anion Gap 9, Blood Urea Nitrogen 91H, Creatinine 2.9H, Estimat Glomerular Filtration Rate 17.4, Glucose Level 99, Calcium Level 7.9L Height (Feet): 5 Height (Inches): 3.00 Weight (Pounds): 128 General Appearance: no apparent distress EENT: normal ENT inspection Neck: supple Cardiovascular: normal rate Respiratory/Chest: decreased breath sounds Abdomen: normal bowel sounds, non tender, soft Extremities: non-tender Assessment/Plan Problem List: (1) Hx of CABG ICD Codes: Z95.1 - Presence of aortocoronary bypass graft SNOMED: 780058592, 478030135 (2) History of tracheostomy ICD Codes: Z98.890 - Other specified postprocedural states SNOMED: 337904146, 391469873 (3) PEG (percutaneous endoscopic gastrostomy) status ICD Codes: Z93.1 - Gastrostomy status SNOMED: 628448460, 373706893 (4) Renal failure ICD Codes: N19 - Unspecified kidney failure SNOMED: 87678823, 474811337 (5) Severe anemia ICD Codes: D64.9 - Anemia, unspecified SNOMED: 047789794 Assessment/Plan: s/p EGD gastric ulcer carafate fu H&H GTF fu labs supportive care prevacid Inder Mccauley MD Apr 15, 2020 09:35
--- NOTE | 2020-04-15 10:37 | Nephrology Progress Note ---
Assessment/Plan Problem List: (1) Renal failure (ARF), acute on chronic (2) Anemia (3) Hyponatremia (4) Respiratory failure Assessment (1) JAVIER (acute kidney injury) (2) Renal failure (ARF), acute on chronic (3) Feeding by G-tube (4) Tracheostomy in place (5) Electrolyte imbalance, hyponatremia (6) Anemia, severe (7) Respiratory failure, acute and chronic (8) history of elevated lipase, pancreatitis (9) Elevated troponin I (10) Sepsis Plan April 15: Labs reviewed. Last dialysis April 13. Electrolytes in check. Continue current management. Dialysis as needed. April 14: Labs reviewed. Dialyzed yesterday. Abnormal electrolytes and low phosphorus addressed. Continue to monitor renal parameters and dialysis arrangement as needed. April 13: No labs drawn today. Due for hemodialysis today. Will check lab [facility] [place]. Continue per consultants. April 12: Labs reviewed. Low phosphorus replaced. Hemodialysis tomorrow. Continue per consultants. April 11: No labs drawn today. Will check lab tomorrow. Last dialysis April 08. Continue per consultants. April 10: Labs reviewed. Renal parameters stable. Hemoglobin higher. Hemodialysis as needed. Low potassium addressed. April 09: Dialyzed yesterday. Discussed with RN. Hemoglobin low. Suggest transfusion 1 unit of packed RBCs. April 08: Dialysis today. Blood pressure medication adjusted. Check lab tomorrow. Continue per consultants. April 07: Patient remains full code. Heart rate improved. Medication list reviewed. Labs reviewed. Will order dialysis for tomorrow. Continue per consultants. April 06: Full code. Intubated via trach on ventilator. FiO2 30%. Blood sugar stable. D50 will be discontinued. Continue feeding. Dialysis as needed. April 05: Remains in ICU. Low heart rate persists. Will initiate low-dose hydralazine with blood pressure parameters. Last dialysis April 03. Blood sugar stable on 30 mL of D10 hourly. GT feeding started. Continue to monitor electrolytes renal parameters and arrange for dialysis as needed. April 04: Patient currently in ICU due to low heart rate. Blood pressure is stable. Dialyzed yesterday. Labs reviewed. Renal parameters and electrolytes stable. Medication list reviewed. Continue per cardiology with regard to bradycardia. April 03: Labs reviewed. We will order dialysis today. Continue per consultants. April 02: Labs reviewed. No need for dialysis today. Continue to monitor renal parameters. April 01: Labs reviewed. Renal parameters stable. No dialysis today. Continue per consultants. March 31: No labs drawn today. Renal parameters stable as of yesterday. Will check lab tomorrow. Dialysis as needed. March 30: Labs reviewed. Low phosphorus addressed. Continue per PMD and consultants. Dialysis as needed. March 29: Dialyzed yesterday. No CHEM panel drawn today. We will continue to monitor renal parameters. Continue per consultants. March 28: Due for dialysis today. Labs reviewed. Stable from renal standpoint of view. March 27: Due for dialysis tomorrow. Labs reviewed. Medication list re viewed. Continue per current management. March 26: Last dialyzed March 24. Labs reviewed. Low phosphorus replaced. Continue to monitor renal parameters. Dialysis as needed. March 25: Dialyzed yesterday. Labs reviewed. Low phosphorus replaced. Continue per current management. Hemoglobin higher. March 24: Labs reviewed. Due for dialysis today. Continue per current management. Hemoglobin lower. Transfusion per parole or probation officer. March 23: Labs reviewed. Dialyzed yesterday. Next dialysis tomorrow. Anemia management per parole or probation officer. March 22: Labs reviewed. Due for dialysis today. Discussed with RN. Agree with discontinuation of the Norman catheter. Hemoglobin lower. Transfusion per parole or probation officer. March 21: Labs reviewed. Will arrange for dialysis tomorrow. Continue per consultants. Will hold phosphorus binders at this time. March 20: Labs reviewed. Patient was dialyzed yesterday. Electrolyte abnormalities corrected. Continue per current management. March 19: Due for dialysis today. Abnormal labs noted. All will be corrected after dialysis. March 18: Labs reviewed. Will dialyze tomorrow. Patient being transfused today. Patient due for abdominal paracentesis. We will keep the Norman in. Continue to monitor renal parameters and dialyze as needed. March 17: No CHEM panel done today. CBC reviewed. Hemoglobin is lowering. Dialyzed yesterday. Will check lab tomorrow. Continue per consultants. March 16: Labs reviewed. Due for dialysis today. Hemoglobin 10.2 today. Continue to monitor renal parameters. March 15: Labs reviewed. Dialyzed March 13. Due for dialysis March 16. Hemoglobin lower. 1 unit of packed RBCs ordered. Per orders. March 14: No labs drawn today. Dialyzed yesterday. Full code. Will check lab tomorrow. Dialysis as needed. March 13: Labs reviewed. Due for dialysis today. Patient remains full code. Continue per current management. March 12: Labs reviewed. Dialyzed yesterday. Due for dialysis tomorrow. Discussed with RN. Patient full code. Continue per current management. March 11: Labs reviewed. Dialyzed this morning. Phosphorus binders dose adju sted. Continue per consultants. Continue to monitor renal parameters. CT: Extensive thoracoabdominal aortic dissection March 10: Labs reviewed. Will order dialysis tomorrow. Phosphorus binders added. Continue per consultants. March 09: No chemistry panel done today. Patient dialyzed yesterday. On dextrose 10% for hypoglycemia. We will check labs tomorrow. Dialysis as needed. March 08: Labs reviewed. Will order dialysis today. Blood sugar low. D10 50 cc an hour started. Continue as is. March 07: Labs reviewed. Dialyzed March 05 and March 06. Continue to monitor renal parameters and hemoglobin. Abnormal electrolytes addressed. IV fluids stopped. Per orders. March 06: Labs reviewed. Dialyzed yesterday. Will reorder dialysis for today. Continue to monitor renal parameters. Hemoglobin 8.4. Patient full code. March 05: Labs reviewed. Patient did not receive dialysis until this morning. Proceed with dialysis. Continue to monitor renal parameters and hemoglobin and hematocrit. March 04: Labs reviewed. Hemoglobin lower. Patient actively bleeding. Was not dialyzed yesterday. Due for GI endoscopy. Continue fluid challenge. Transfusion as needed. Dialysis today. March 03: Labs reviewed. Dialysis ordered. Blood pressure medication all discontinued due to hypotensive state. Albumin bolus given. Continue to monitor renal parameters. Medication list reviewed. Midodrin for low blood pressure ordered Subjective ROS Limited/Unobtainable: Yes Objective Objective Last 24 Hour Vital Signs Date Time Temp Pulse Resp B/P (MAP) Pulse Ox O2 Delivery O2 Flow Rate FiO2 04/15/20 09:09 82 141/63 04/15/20 08:00 Mechanical Ventilator 04/15/20 08:00 30 04/15/20 07:56 98.8 82 20 141/63 (89) 95 04/15/20 05:15 138/61 04/15/20 04:00 98.2 85 19 130/61 (84) 97 04/15/20 04:00 84 04/15/20 04:00 30 04/15/20 04:00 Mechanical Ventilator 04/15/20 03:30 81 15 30 04/15/20 00:00 98.5 98 17 136/65 (88) 96 04/15/20 00:00 Mechanical Ventilator 04/14/20 23:30 101 22 30 04/14/20 23:25 126/60 04/14/20 21:42 98.0 04/14/20 20:00 Mechanical Ventilator 04/14/20 20:00 98.7 113 17 145/81 (102) 95 04/14/20 20:00 114 04/14/20 20:00 30 04/14/20 19:30 80 17 30 04/14/20 17:32 142/56 04/14/20 16:00 Mechanical Ventilator 04/14/20 16:00 79 04/14/20 16:00 30 04/14/20 16:00 98.2 84 17 142/56 (84) 92 04/14/20 14:57 82 16 30 04/14/20 12:55 140/62 04/14/20 12:00 30 04/14/20 12:00 74 04/14/20 12:00 98.0 72 17 140/62 (88) 96 04/14/20 12:00 Mechanical Ventilator 04/14/20 11:50 70 17 30 Intake and Output 04/14/20 04/15/20 19:00 07:00 Intake Total 701.664 ml 360 ml Balance 701.664 ml 360 ml Intake Free Water 60 ml IV Total 281.664 ml Tube Feeding 360 ml 360 ml # Voids 1 Current Medications Medications (Trade) Dose Ordered Sig/Penny Route PRN Reason Start Time Stop Time Status Last Admin Dose Admin Amlodipine Besylate (Norvasc) 5 mg DAILY ORAL 04/10/20 09:00 05/10/20 08:59 04/15/20 09:09 Aspirin (ASA) 81 mg DAILY GT 03/07/20 09:00 04/21/20 08:59 04/15/20 09:09 Chlorhexidine Gluconate (Ling-Hex 2%) 1 applic DAILY@1999 TOPIC 03/03/20 20:00 06/01/20 19:59 04/14/20 21:10 Dextrose (Dextrose 50%) 25 ml Q30M PRN IV Hypoglycemia 03/15/20 07:30 06/13/20 07:29 04/05/20 09:08 Dextrose (Dextrose 50%) 50 ml Q30M PRN IV Hypoglycemia 03/15/20 07:30 06/13/20 07:29 Hydralazine HCl (Apresoline) 25 mg Q6H PRN GT For High Blood Pressure 03/02/20 22:00 05/31/20 21:59 04/12/20 22:05 Hydralazine HCl (Apresoline) 50 mg Q6HR GT 04/07/20 00:00 07/06/20 00:00 04/15/20 05:15 Hydrocortisone (Anusol HC) 25 mg Q12HR RECTAL 03/23/20 21:00 06/21/20 08:59 04/15/20 09:09 Hydromorphone HCl (Dilaudid) 0.5 mg Q4H PRN IVP For Pain 04/09/20 22:30 04/16/20 22:29 04/15/20 09:10 Lansoprazole (Prevacid) 30 mg BID GT 04/13/20 09:00 05/13/20 08:59 04/15/20 09:09 Sodium Hypochlorite (Dakin's Quarter Strength) 1 applic BEDTIME TOPIC 04/04/20 21:00 05/02/20 08:59 04/14/20 21:11 Sorbitol (sorbitoL) 30 ml Q6HR PRN ORAL Constipation 04/11/20 12:15 05/11/20 12:14 04/12/20 20:44 Sucralfate (Carafate) 1 gm EVERY 6 HOURS GT 03/17/20 18:00 06/09/20 08:59 04/15/20 05:16 Tramadol HCl (Ultram) 50 mg Q6H PRN GT Moderate Pain (Pain Scale 4-6) 04/09/20 22:30 04/16/20 22:29 04/13/20 09:33 Zinc Oxide (Zinc Oxide) 1 applic Q8HR TOPIC 03/25/20 22:00 06/22/20 17:59 04/15/20 05:16 Laboratory Tests 04/15/20 03:20: Phosphorus Level 2.8, Magnesium Level 2.5H, Total Bilirubin 0.5, Direct Bi lirubin 0.2, Aspartate Amino Transf (AST/SGOT) 37, Alanine Aminotransferase (ALT/SGPT) 17, Alkaline Phosphatase 165H, Total Protein 5.7L, Albumin 1.3L 04/15/20 03:25: White Blood Count 11.2#H, Red Blood Count 2.66L, Hemoglobin 7.9L, Hematocrit 23.7L, Mean Corpuscular Volume 89, Mean Corpuscular Hemoglobin 29.8, Mean Corpuscular Hemoglobin Concent 33.4, Red Cell Distribution Width 14.6, Platelet Count 318, Mean Platelet Volume 5.2L, Neutrophils (%) (Auto) , Lymphocytes (%) (Auto) , Monocytes (%) (Auto) , Eosinophils (%) (Auto) , Basophils (%) (Auto) , Differential Total Cells Counted 100, Neutrophils % (Manual) 75, Lymphocytes % (Manual) 19L, Monocytes % (Manual) 3, Eosinophils % (Manual) 0, Basophils % (Manual) 0, Band Neutrophils 3, Platelet Estimate Adequate, Platelet Morphology Normal, Hypochromasia 3+, Sodium Level 141, Potassium Level 3.7, Chloride Level 104, Carbon Dioxide Level 28, Anion Gap 9, Blood Urea Nitrogen 91H, Creatinine 2.9H, Estimat Glomerular Filtration Rate 17.4, Glucose Level 99, Calcium Level 7.9L Height (Feet): 5 Height (Inches): 3.00 Weight (Pounds): 128 General Appearance: no apparent distress EENT: other - Trach to vent Cardiovascular: normal rate Respiratory/Chest: decreased breath sounds Abdomen: distended Johnny Houston MD Apr 15, 2020 10:37
--- NOTE | 2020-04-15 10:43 | Pulmonology Progress Note ---
Subjective ROS Limited/Unobtainable: Yes Interval Events: none major reported per nursing Constitutional: Reports: fever, other - resolved HEENT: Repors: no symptoms Respiratory: Reports: no symptoms Cardiovascular: Reports: no symptoms Gastrointestinal/Abdominal: Reports: diarrhea Allergies: Coded Allergies: No Known Allergies (Unverified , 10/10/17) All Systems: reviewed and negative except above Objective Last 24 Hour Vital Signs Date Time Temp Pulse Resp B/P (MAP) Pulse Ox O2 Delivery O2 Flow Rate FiO2 04/15/20 09:09 82 141/63 04/15/20 08:00 Mechanical Ventilator 04/15/20 08:00 30 04/15/20 07:56 98.8 82 20 141/63 (89) 95 04/15/20 05:15 138/61 04/15/20 04:00 98.2 85 19 130/61 (84) 97 04/15/20 04:00 84 04/15/20 04:00 30 04/15/20 04:00 Mechanical Ventilator 04/15/20 03:30 81 15 30 04/15/20 00:00 98.5 98 17 136/65 (88) 96 04/15/20 00:00 Mechanical Ventilator 04/14/20 23:30 101 22 30 04/14/20 23:25 126/60 04/14/20 21:42 98.0 04/14/20 20:00 Mechanical Ventilator 04/14/20 20:00 98.7 113 17 145/81 (102) 95 04/14/20 20:00 114 04/14/20 20:00 30 04/14/20 19:30 80 17 30 04/14/20 17:32 142/56 04/14/20 16:00 Mechanical Ventilator 04/14/20 16:00 79 04/14/20 16:00 30 04/14/20 16:00 98.2 84 17 142/56 (84) 92 04/14/20 14:57 82 16 30 04/14/20 12:55 140/62 04/14/20 12:00 30 04/14/20 12:00 74 04/14/20 12:00 98.0 72 17 140/62 (88) 96 04/14/20 12:00 Mechanical Ventilator 04/14/20 11:50 70 17 30 Intake and Output 04/14/20 04/15/20 19:00 07:00 Intake Total 701.664 ml 360 ml Balance 701.664 ml 360 ml Intake Free Water 60 ml IV Total 281.664 ml Tube Feeding 360 ml 360 ml # Voids 1 General Appearance: no acute distress HEENT: atraumatic, status post trach Respiratory: rhonchi - bilaterally Cardiovascular: normal rate, regular rhythm Extremities: other - edema bilateral Laboratory Tests 04/15/20 03:20: Phosphorus Level 2.8, Magnesium Level 2.5H, Total Bilirubin 0.5, Direct Bilirubin 0.2, Aspartate Amino Transf (AST/SGOT) 37, Alanine Aminotransferase (ALT/SGPT) 17, Alkaline Phosphatase 165H, Total Protein 5.7L, Albumin 1.3L 04/15/20 03:25: White Blood Count 11.2#H, Red Blood Count 2.66L, Hemoglobin 7.9L, Hematocrit 23.7L, Mean Corpuscular Volume 89, Mean Corpuscular Hemoglobin 29.8, Mean Corpuscular Hemoglobin Concent 33.4, Red Cell Distribution Width 14.6, Platelet Count 318, Mean Platelet Volume 5.2L, Neutrophils (%) (Auto) , Lymphocytes (%) (Auto) , Monocytes (%) (Auto) , Eosinophils (%) (Auto) , Basophils (%) (Auto) , Differential Total Cells Counted 100, Neutrophils % (Manual) 75, Lymphocytes % (Manual) 19L, Monocytes % (Manual) 3, Eosinophils % (Manual) 0, Basophils % (Manual) 0, Band Neutrophils 3, Platelet Estimate Adequate, Platelet Morphology Normal, Hypochromasia 3+, Sodium Level 141, Potassium Level 3.7, Chloride Level 104, Carbon Dioxide Level 28, Anion Gap 9, Blood Urea Nitrogen 91H, Creatinine 2.9H, Estimat Glomerular Filtration Rate 17.4, Glucose Level 99, Calcium Level 7 .9L Current Medications Medications (Trade) Dose Ordered Sig/Penny Route PRN Reason Start Time Stop Time Status Last Admin Dose Admin Amlodipine Besylate (Norvasc) 5 mg DAILY ORAL 04/10/20 09:00 05/10/20 08:59 04/15/20 09:09 Aspirin (ASA) 81 mg DAILY GT 03/07/20 09:00 04/21/20 08:59 04/15/20 09:09 Chlorhexidine Gluconate (Ling-Hex 2%) 1 applic DAILY@1999 TOPIC 03/03/20 20:00 06/01/20 19:59 04/14/20 21:10 Dextrose (Dextrose 50%) 25 ml Q30M PRN IV Hypoglycemia 03/15/20 07:30 06/13/20 07:29 04/05/20 09:08 Dextrose (Dextrose 50%) 50 ml Q30M PRN IV Hypoglycemia 03/15/20 07:30 06/13/20 07:29 Hydralazine HCl (Apresoline) 25 mg Q6H PRN GT For High Blood Pressure 03/02/20 22:00 05/31/20 21:59 04/12/20 22:05 Hydralazine HCl (Apresoline) 50 mg Q6HR GT 04/07/20 00:00 07/06/20 00:00 04/15/20 05:15 Hydrocortisone (Anusol HC) 25 mg Q12HR RECTAL 03/23/20 21:00 06/21/20 08:59 04/15/20 09:09 Hydromorphone HCl (Dilaudid) 0.5 mg Q4H PRN IVP For Pain 04/09/20 22:30 04/16/20 22:29 04/15/20 09:10 Lansoprazole (Prevacid) 30 mg BID GT 04/13/20 09:00 05/13/20 08:59 04/15/20 09:09 Sodium Hypochlorite (Dakin's Quarter Strength) 1 applic BEDTIME TOPIC 04/04/20 21:00 05/02/20 08:59 04/14/20 21:11 Sorbitol (sorbitoL) 30 ml Q6HR PRN ORAL Constipation 04/11/20 12:15 05/11/20 12:14 04/12/20 20:44 Sucralfate (Carafate) 1 gm EVERY 6 HOURS GT 03/17/20 18:00 06/09/20 08:59 04/15/20 05:16 Tramadol HCl (Ultram) 50 mg Q6H PRN GT Moderate Pain (Pain Scale 4-6) 04/09/20 22:30 04/16/20 22:29 04/13/20 09:33 Zinc Oxide (Zinc Oxide) 1 applic Q8HR TOPIC 03/25/20 22:00 06/22/20 17:59 04/15/20 05:16 Assessment/Plan Assessment/Plan 1. Chronic respiratory failure. - CT chest/abd/pelv: improving pleural effusion 2. Mechanical ventilation. - remains on 30% FiO2 saturating well - pulmonary hygiene 3. Chronic tracheostomy. 4. Chronic G-tube. 5. Anemia. - s/p transfusion - stool OB positive (03/02, 03/03, 03/22) - off anticoags 6. Renal failure. 7. Leukocytosis and sepsis. - WBC now wnl 8. Sepsis UTI 9. Gram positive cocci bacteremia - f/u BCx negative for growth 10. COVID-19 negative 11. Diarrhea - C. diff neg 12. Hypoglycemia - resolved 13. Bradycardia - no urgent indication for pacemaker per cardio 14. Gastric ulcer - on PPI -No active bleeding - GI following 15. Pleural effusion - small; insufficient volume for safe thoracentesis - on HD 16. thoracic aortic aneurysm - noted on CT imaging - pt needs emergent transfer out to [facility] for CT surgery evaluation, primary MD aware - Pt might not be a candidate for TAA repair 17. Ascites - s/p paracentesis (/), 2.3L out 18. DVT ppx - on SCD -Venous duplex ultrasound of legs negative for DVT (03/25) Noted discharge planning to [place] Medically stable for discharge from pulmonary standpoint The care of this patient was discussed with my supervising physician Time spent for this encounter was approximately 31 minutes Cruz Wilson Apr 15, 2020 10:43
[2020-04-15 11:50] VITALS: BP 122/51
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
--- NOTE | 2020-04-15 15:04 | NUR ---
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 PLACED A CALL TO [facility] [employer] PH:[phone], NO ANSWER, LEFT MULTIPLE VOICE MESSAGE IN REGARDS TO AUTH AND EVONNE THAT IS NEEDED TO CONTINUE DISCHARGE PLAN.
[2020-04-15 15:56] VITALS: BP 126/56
--- NOTE | 2020-04-15 16:28 | NUR ---
NURSE NOTES: wound treatment done as order and pt tolerated well.
--- NOTE | 2020-04-15 16:46 | NUR ---
INSURANCE CLINICALS FAXED TO [facility] T: [phone] F: [phone]
--- NOTE | 2020-04-15 19:04 | NUR ---
NURSE HAND-OFF REPORT: Important Events on Shift: Patient Status: Diet: Pending Orders: Pending Results/Labs: Pending MD notification: Latest Vital Signs: Temperature 98.2 , Pulse 78 , B/P 126 /56 , Respiratory Rate 22 , O2 SAT 98 , Mechanical Ventilator, O2 Flow Rate . Vital Sign Comment: EKG Rhythm: Sinus Rhythm Rhythm change?: N Notified?: N -Dr Екатерина HATFIELD Response: Order Received& Read Back Latest Chavarria Fall Score: 70 Fall Risk: High Risk Safety Measures: Call light Within Reach, Bed Alarm Zone 2, Side Rails Side Rails x3, Bed position Low and Locked. Fall Precautions: Yellow Socks Report given to . pt is sleeping and stable,no stress noted. Endorsed plan of care, endorsed to monitor pain.
--- NOTE | 2020-04-15 19:05 | NUR ---
NURSE NOTES: Report received from ERASMO Lu. Upon assessment pt is asleep; responsive to verbal/tactile stimuli. Vitals WNL. Afebrile. Facial grimace observed. Saturating 100% on prescribed vent settings of 500Vt, 45% IV intact; saline lock. G-tube running Nepro at 40mL with 0 residual. Bed kept in lowest and locked position. Call light within reach. Will monitor.
[2020-04-15 20:00] VITALS: BP 126/52
[2020-04-15] MEDS: Dyna-Hex 2% Top Sol 2oz TOPIC SCH (20:20)
[2020-04-15] MEDS: Dakin's 0.125% Soln (Quarter Strength) 16oz TOPIC SCH (20:21)
--- NOTE | 2020-04-15 22:57 | NUR ---
NURSE NOTES: Dr. Dong at bedside. No new orders. Still pending subacute placement.
--- NOTE | 2020-04-15 23:24 | General Progress Note ---
Subjective Constitutional: Reports: no symptoms HEENT: Reports: no symptoms Cardiovascular: Reports: no symptoms Respiratory: Reports: no symptoms Gastrointestinal/Abdominal: Reports: no symptoms Genitourinary: Reports: no symptoms Neurologic/Psychiatric: Reports: depressed Endocrine: Reports: no symptoms Hematologic/Lymphatic: Reports: no symptoms Allergies: Coded Allergies: No Known Allergies (Unverified , 10/10/17) Objective Last 24 Hour Vital Signs Date Time Temp Pulse Resp B/P (MAP) Pulse Ox O2 Delivery O2 Flow Rate FiO2 04/15/20 21:18 73 15 30 04/15/20 20:00 98.9 73 15 126/52 (76) 98 04/15/20 20:00 75 04/15/20 20:00 45 04/15/20 20:00 Mechanical Ventilator 04/15/20 19:16 73 15 30 04/15/20 17:32 126/56 04/15/20 15:58 Mechanical Ventilator 04/15/20 15:56 98.2 78 22 126/56 (79) 98 04/15/20 15:48 74 14 30 04/15/20 15:18 77 04/15/20 13:00 45 04/15/20 12:12 122/51 04/15/20 12:00 Mechanical Ventilator 04/15/20 11:50 98.2 80 21 122/51 (74) 100 04/15/20 11:45 74 04/15/20 11:06 76 16 30 04/15/20 11:00 65 04/15/20 09:09 82 141/63 04/15/20 08:00 Mechanical Ventilator 04/15/20 08:00 30 04/15/20 07:56 98.8 82 20 141/63 (89) 95 04/15/20 07:34 82 04/15/20 07:24 77 16 30 04/15/20 05:15 138/61 04/15/20 04:00 98.2 85 19 130/61 (84) 97 04/15/20 04:00 84 04/15/20 04:00 30 04/15/20 04:00 Mechanical Ventilator 04/15/20 03:30 81 15 30 04/15/20 00:00 98.5 98 17 136/65 (88) 96 04/15/20 00:00 Mechanical Ventilator 04/14/20 23:30 101 22 30 04/14/20 23:25 126/60 Intake and Output 04/14/20 04/15/20 19:00 07:00 Intake Total 701.664 ml 400 ml Balance 701.664 ml 400 ml Intake Free Water 60 ml IV Total 281.664 ml Tube Feeding 360 ml 400 ml # Voids 1 Laboratory Tests 04/15/20 03:20: Phosphorus Level 2.8, Magnesium Level 2.5H, Total Bilirubin 0.5, Direct Bilirubin 0.2, Aspartate Amino Transf (AST/SGOT) 37, Alanine Aminotransferase (ALT/SGPT) 17, Alkaline Phosphatase 165H, Total Protein 5.7L, Albumin 1.3L 04/15/20 03:25: White Blood Count 11.2#H, Red Blood Count 2.66L, Hemoglobin 7.9L, Hematocrit 23.7L, Mean Corpuscular Volume 89, Mean Corpuscular Hemoglobin 29.8, Mean Corpuscular Hemoglobin Concent 33.4, Red Cell Distribution Width 14.6, Platelet Count 318, Mean Platelet Volume 5.2L, Neutrophils (%) (Auto) , Lymphocytes (%) (Auto) , Monocytes (%) (Auto) , Eosinophils (%) (Auto) , Basophils (%) (Auto) , Differential Total Cells Counted 100, Neutrophils % (Manual) 75, Lymphocytes % (Manual) 19L, Monocytes % (Manual) 3, Eosinophils % (Manual) 0, Basophils % (Manual) 0, Band Neutrophils 3, Platelet Estimate Adequate, Platelet Morphology Normal, Hypochromasia 3+, Sodium Level 141, Potassium Level 3.7, Chloride Level 104, Carbon Dioxide Level 28, Anion Gap 9, Blood Urea Nitrogen 91H, Creatinine 2.9H, Estimat Glomerular Filtration Rate 17.4, Glucose Level 99, Calcium Level 7.9L Height (Feet): 5 Height (Inches): 3.00 Weight (Pounds): 128 General Appearance: WD/WN, alert, mild distress EENT: normal ENT inspection Neck: normal alignment, supple Cardiovascular: normal rate, regular rhythm, no gallop/murmur, no JVD Respiratory/Chest: lungs clear, no respiratory distress, no accessory muscle use, decreased breath sounds Abdomen: normal bowel sounds, non tender, soft, no organomegaly, no mass Extremities: non-tender Edema: trace edema Neurologic: alert, responsive, other - Patient maintained normal eye contact during the visit no verbal response she has had none to yes or no Assessment/Plan Status Narrative Patient is awake iCloud febrile hemodynamically stable he is attentive 0.2 or question pause by yes or no denies appearance of any new symptom physical examination is unchanged she is hemodynamically stable without tachycardia and without fever her last hemodialysis was on April 13 April 12 to accommodate the need senior care subacute unit as well as with dialysis unit should be found clot which Lucas Tomas MD, MD Apr 15, 2020 23:24
[2020-04-16] VITALS: BP 147/72
[2020-04-16] MEDS: Sucralfate 1gm tab GT SCH ×5 (00:36→23:27)
[2020-04-16] MEDS: HydrALAZINE 50mg tab GT SCH ×5 (00:36→23:28)
--- NOTE | 2020-04-16 01:03 | Cardiology Progress Note ---
Subjective DATE OF SERVICE: Apr 15, 2020 BP control remains stable. Heart rates remain stable since dialysis resumed; last dialysis was April 13. CT scan revealed extensive thoracoabd aortic dissection- [place] Type B No overall change in cardiovascular parameters. Objective Last 24 Hour Vital Signs Date Time Temp Pulse Resp B/P (MAP) Pulse Ox O2 Delivery O2 Flow Rate FiO2 04/16/20 00:36 147/72 04/16/20 00:00 97 04/16/20 00:00 45 04/16/20 00:00 Mechanical Ventilator 04/16/20 00:00 98.7 90 16 147/72 (97) 96 04/15/20 23:33 93 21 30 04/15/20 21:18 73 15 30 04/15/20 20:00 98.9 73 15 126/52 (76) 98 04/15/20 20:00 75 04/15/20 20:00 45 04/15/20 20:00 Mechanical Ventilator 04/15/20 19:16 73 15 30 04/15/20 17:32 126/56 04/15/20 15:58 Mechanical Ventilator 04/15/20 15:56 98.2 78 22 126/56 (79) 98 04/15/20 15:48 74 14 30 04/15/20 15:18 77 04/15/20 13:00 45 04/15/20 12:12 122/51 04/15/20 12:00 Mechanical Ventilator 04/15/20 11:50 98.2 80 21 122/51 (74) 100 04/15/20 11:45 74 04/15/20 11:06 76 16 30 04/15/20 11:00 65 04/15/20 09:09 82 141/63 04/15/20 08:00 Mechanical Ventilator 04/15/20 08:00 30 04/15/20 07:56 98.8 82 20 141/63 (89) 95 04/15/20 07:34 82 04/15/20 07:24 77 16 30 04/15/20 05:15 138/61 04/15/20 04:00 98.2 85 19 130/61 (84) 97 04/15/20 04:00 84 04/15/20 04:00 30 04/15/20 04:00 Mechanical Ventilator 04/15/20 03:30 81 15 30 HEENT: Thin Trach secretions RHYTHM: NSR, SB LUNGS: bilateral rhonchi - few, trach site clean CARDIAC: normal rate, regular rhythm, normal S1 and S2 ABDOMEN: normal bowel sounds, non tender, soft, G-Tube intact EXTREMITIES: normal range of motion, non-tender, normal inspection Laboratory Tests Test 04/15/20 03:20 04/15/20 03:25 Phosphorus Level 2.8 MG/DL (2.5-4.9) Magnesium Level 2.5 MG/DL (1.8-2.4) H Total Bilirubin 0.5 MG/DL (0.2-1.0) Direct Bilirubin 0.2 MG/DL (0.0-0.3) Aspartate Amino Transf (AST/SGOT) 37 U/L (15-37) Alanine Aminotransferase (ALT/SGPT) 17 U/L (12-78) Alkaline Phosphatase 165 U/L (46-116) H Total Protein 5.7 G/DL (6.4-8.2) L Albumin 1.3 G/DL (3.4-5.0) L White Blood Count 11.2 K/UL (4.8-10.8) #H Red Blood Count 2.66 M/UL (4.20-5.40) L Hemoglobin 7.9 G/DL (12.0-16.0) L Hematocrit 23.7 % (37.0-47.0) L Mean Corpuscular Volume 89 FL (80-99) Mean Corpuscular Hemoglobin 29.8 PG (27.0-31.0) Mean Corpuscular Hemoglobin Concent 33.4 G/DL (32.0-36.0) Red Cell Distribution Width 14.6 % (11.6-14.8) Platelet Count 318 K/UL (150-450) Mean Platelet Volume 5.2 FL (6.5-10.1) L Neutrophils (%) (Auto) % (45.0-75.0) Lymphocytes (%) (Auto) % (20.0-45.0) Monocytes (%) (Auto) % (1.0-10.0) Eosinophils (%) (Auto) % (0.0-3.0) Basophils (%) (Auto) % (0.0-2.0) Differential Total Cells Counted 100 Neutrophils % (Manual) 75 % (45-75) Lymphocytes % (Manual) 19 % (20-45) L Monocytes % (Manual) 3 % (1-10) Eosinophils % (Manual) 0 % (0-3) Basophils % (Manual) 0 % (0-2) Band Neutrophils 3 % (0-8) Platelet Estimate Adequate Platelet Morphology Normal Hypochromasia 3+ Sodium Level 141 MMOL/L (136-145) Potassium Level 3.7 MMOL/L (3.5-5.1) Chloride Level 104 MMOL/L (98-107) Carbon Dioxide Level 28 MMOL/L (21-32) Anion Gap 9 mmol/L (5-15) Blood Urea Nitrogen 91 mg/dL (7-18) H Creatinine 2.9 MG/DL (0.55-1.30) H Estimat Glomerular Filtration Rate 17.4 mL/min (>60) Glucose Level 99 MG/DL (74-106) Calcium Level 7.9 MG/DL (8.5-10.1) L Assessment/Plan Assessment/Plan Aortic dissections - [place] B Sepsis with recovered shock Sinus node disease with bradycardia Hx pacemaker explant Ischemic cardiomyopathy - hx CABG? Paroxysmal Atrial Fib Respiratory failure with trach Hx thoracic aortic aneurysm repair ESRD Anemia HypoPO4 Hypertension/HHD now with controlled BP Remains off beta blockers; would not resume despite benefit in setting of AAA with dissection, as she has repeatedly developed significant bradycardia. However, if she is to continue regular HD sessions 3x/wk, I would feel comfortable trying carvedilol again at low doses. Avoid metoclopramide, which can aggravate bradycardia. Favor regular HD/UF in this setting. patient monitor Vent support Antimicrobials DVT prophyl Advance antiHTN meds until BP optimized Non-surgical mngmt Deni Willams MD Apr 16, 2020 01:03
[2020-04-16 04:00] VITALS: BP 152/69
--- NOTE | 2020-04-16 04:00 | NUR ---
NURSE NOTES: Bed bath and oral care provided. Saturating 94% room air.
[2020-04-16] MEDS: Zinc Oxide Oint 2oz TOPIC SCH ×3 (05:27→20:31)
[2020-04-16 05:50] LABS: HEMATOCRIT 22.8 % (37.0-47.0); HEMOGLOBIN 7.7 G/DL (12.0-16.0); MEAN CORPUSCULAR VOLUME 90 FL (80-99); PLATELET COUNT 320 K/UL (150-450); RED BLOOD COUNT 2.53 M/UL (4.20-5.40); RED CELL DISTRIBUTION WIDTH 14.9 % (11.6-14.8); WHITE BLOOD COUNT 13.7 K/UL (4.8-10.8)
[2020-04-16 06:19] LABS: ALBUMIN 1.4 G/DL (3.4-5.0); ALBUMIN/GLOBULIN RATIO 0.3 (1.0-2.7); BILIRUBIN,TOTAL 0.4 MG/DL (0.2-1.0); CALCIUM 8.2 MG/DL (8.5-10.1); CREATININE 3.1 MG/DL (0.55-1.30)
--- NOTE | 2020-04-16 06:24 | Hematology/Onc Progress Note ---
Assessment/Plan Assessment/Plan # Leukocytosis, now with likely bacteremia, as per ID care --> Cxr: : Large left abiola consolidation/effusion --> wbc 30-->40-->27->30->29-->35->32-->28-->21->10.2-->6.6-->7,2-->13.4 --> ABX angelo/vanc-->tobra/edson/vanc-->dapto/ceftazadine->off abx --> smear reviewed --> ID recs are noted # Anemia of chronic disease due to underlying chronic medical issues, multifactorial --> Anemia workup has been reviewed, cw acd --> No evidence of hemolysis is noted, peripheral smear has been reviewed. --> Hgb goal >7. Transfuse prn. --> Epogen required in prior --> Medications have been reviewed --> low threshold for gi evaluation in case has occult + --> hgb 1.9-->5-->7.1-->8.8-->8.1->7.5-> 8.2-->6.8-->9.2-->8.4->7.7-->7.1-->8.8->8.7-->8.2-->8-->7.7 --> 1 unit prbc10/17, 2 units /, 18, 2/3, 2 --> gi eval as needed # Elevated tumor markers, cea and ca 19.9 --> reviewed prior 01/27/20 cat scan a/p --> no masses noted, hold off further extensive w/u # Thrombocytopenia likely reactive v medication induced --> plt 200-->129->91-->86->100->78-->86-->87-->125->135 --> transfuse as needed --> r/o dic, has been ruled out --> anticoag as needed # Coagulopathy with inr 1.5 --> consider vit k/ffp as needed preprocedure --> labs noted # Aortic dissection as seen on Ct ==> when stable, consider transfer hloc # JAVIER initially >2 --> on ivfs --> per renal is on HD # Elevated d-dimer, likely infection related --> venous duplex prior neg --> in prior neg # Dysphagia s/p peg --> as per gi # Thoracic aortic dissection --> s/p repair early 2017 # Chronic Resp failure -> s/p trach/vent # Psychiatric history on ativan/haldol # [place] resident # Dvt ppx --> scds The timing of this note does not necessarily reflect the time of the patient was seen. Greatly appreciate consultation. Subjective HEENT: Denies: no symptoms, eye pain, blurred vision, tearing, double vision, ear pain, ear discharge, nose pain, nose congestion, throat pain, throat swelling, mouth pain, mouth swelling, other Cardiovascular: Denies: no symptoms, chest pain, edema, irregular heart rate, lightheadedness, palpitations, syncope, other Respiratory: Denies: no symptoms, cough, shortness of breath, SOB with excertion, SOB at rest, sputum, wheezing, other Gastrointestinal/Abdominal: Denies: no symptoms, abdomen distended, abdominal pain, black stools, tarry stools, blood in stool, constipated, diarrhea, difficulty swallowing, nausea, poor appetite, poor fluid intake, rectal bleeding, vomiting, other Genitourinary: Denies: no symptoms, burning, discharge, frequency, flank pain, hematuria, incontinence, pain, urgency, other Neurologic/Psychiatric: Denies: no symptoms, anxiety, depressed, emotional problems, headache, numbness, paresthesia, pre-existing deficit, seizure, tingling, tremors, weakness, other Endocrine: Denies: no symptoms, excessive sweating, flushing, intolerance to cold, intolerance to heat, increased hunger, increased thirst, increased urine, unexplained weight gain, unexplained weight loss, other Hematologic/Lymphatic: Denies: no symptoms, anemia, easy bleeding, easy bruising, adenopathy, other Allergies: Coded Allergies: No Known Allergies (Unverified , 10/10/17) Subjective 03/04 nv, for 1 unit transfusion this am as hgb remains low, wbc better 03/05 egd was done did show large nonbleeding gastric ulcer, high tumor markers 03/06 nv, with davis overnight, bp remains stable, with occult + stool, dw Rn 03/09 nv, remains stable, on vanc/tobra/edson, meds reviewed, no bleeding 03/10 nv, on vent, no bleeding, receiving abx, no night sweats 03/11 nv, dw surgeon and pcp, with aortic dissection to transfer [facility] when stable 03/12 nv, labs reviewed, wbc 21, hgb 7.5, otherwise is comfortable 03/13 nv, labs noted, no bleeding, wbc 13, hgb improved, meds reviewed 03/15 nv, meds reviewed, labs noted, no bleeding, on vent 03/16 nv/tv, peg, meds noted, hgb remains stable, improved to 10 03/17 s/p egd, with gastric ulceration noted, hgb stable 03/18 labs noted, hgb 6.8, to get 1 unit prbc, meds reviewed 03/19 hgb 9.2, plt 78, no hemoptysis, is comfortable 03/20 labs reviewed, meds noted, no bleeding, roman rn 03/22 wound treatment, vent, with gtube, labs reviewed, roman rn 03/23 labs reviewed, meds noted, no bleeding, with gt 03/24 large bm overnight that was bloody, hgb 7.1, roman rn 03/25 labs pending this am, comfortable, nsr, meds noted 03/26 nv, vent, with gt, labs reviewed, hgb 8.8 03/27 nv, vent, labs reviewed, with gt, hgb stable 03/29 nv, vent, labs pending, meds reviewed, no bleeding 03/30 nv, t/v, with gt feeds, labs reviewed, meds noted 03/31 nv, t/v, oral secretions were suctioned, meds reviewed 04/01 nv, t/v, labs are reviewed, meds noted, hgb 7.4 04/02 gt leaking, facial grimacing, labs noted, no bleeding, roman rn 04/03 nv, labs noted, no bleeding, roman rn, h/h stable 04/04 nv, labs reviewed, gtube replacement as per Dr. Mccauley 04/05 nv, labs reviewed, meds noted no bleeding, roman rn 04/06 nv, labs, meds noted, no bleeding, on vt, no new changes 04/07 nv, meds reviewed, labs noted, no bleeding, bp was high on, transferred to icu 04/08 nv, labs noted, no bleeding, evaluated at the bedside 04/09 nv, labs noted, no bleeding, hgb 7.6, repeat pending 04/10 nv is on gt feeds, labs reviewed, hgb better 04/12 nv, gt feeds, asleep, no night sweats, meds reviewed 04/13 sr, afebrile, nv, with gt, no bleeding, labs noted, sdu 04/14 nv, sr, afebrile, for placement to subacute with hd 04/15 nv, meds reviewed, labs are noted, hd placement 04/16 nv, meds reviewed, placement pending, with gt and hd Objective Objective Current Medications Medications (Trade) Dose Ordered Sig/Penny Route PRN Reason Start Time Stop Time Status Last Admin Dose Admin Amlodipine Besylate (Norvasc) 5 mg DAILY ORAL 04/10/20 09:00 05/10/20 08:59 04/15/20 09:09 Aspirin (ASA) 81 mg DAILY GT 03/07/20 09:00 04/21/20 08:59 04/15/20 09:09 Carvedilol (Coreg) 3.125 mg EVERY 12 HOURS ORAL 04/16/20 09:00 05/16/20 08:59 Chlorhexidine Gluconate (Ling-Hex 2%) 1 applic DAILY@1999 TOPIC 03/03/20 20:00 06/01/20 19:59 04/15/20 20:20 Dextrose (Dextrose 50%) 25 ml Q30M PRN IV Hypoglycemia 03/15/20 07:30 06/13/20 07:29 04/05/20 09:08 Dextrose (Dextrose 50%) 50 ml Q30M PRN IV Hypoglycemia 03/15/20 07:30 06/13/20 07:29 Hydralazine HCl (Apresoline) 25 mg Q6H PRN GT For High Blood Pressure 03/02/20 22:00 05/31/20 21:59 04/12/20 22:05 Hydralazine HCl (Apresoline) 50 mg Q6HR GT 04/07/20 00:00 07/06/20 00:00 04/16/20 05:25 Hydrocortisone (Anusol HC) 25 mg Q12HR RECTAL 03/23/20 21:00 06/21/20 08:59 04/15/20 20:20 Hydromorphone HCl (Dilaudid) 0.5 mg Q4H PRN IVP For Pain 04/09/20 22:30 04/16/20 22:29 04/15/20 17:33 Lansoprazole (Prevacid) 30 mg BID GT 04/13/20 09:00 05/13/20 08:59 04/15/20 17:32 Sodium Hypochlorite (Dakin's Quarter Strength) 1 applic BEDTIME TOPIC 04/04/20 21:00 05/02/20 08:59 04/15/20 20:21 Sorbitol (sorbitoL) 30 ml Q6HR PRN ORAL Constipation 04/11/20 12:15 05/11/20 12:14 04/12/20 20:44 Sucralfate (Carafate) 1 gm EVERY 6 HOURS GT 03/17/20 18:00 06/09/20 08:59 04/16/20 05:26 Tramadol HCl (Ultram) 50 mg Q6H PRN GT Moderate Pain (Pain Scale 4-6) 04/09/20 22:30 04/16/20 22:29 04/13/20 09:33 Zinc Oxide (Zinc Oxide) 1 applic Q8HR TOPIC 03/25/20 22:00 06/22/20 17:59 04/16/20 05:27 Last 24 Hour Vital Signs Date Time Temp Pulse Resp B/P (MAP) Pulse Ox O2 Delivery O2 Flow Rate FiO2 04/16/20 05:25 124/61 04/16/20 05:06 93 15 30 04/16/20 04:00 113 04/16/20 04:00 99.9 95 16 152/69 (96) 94 04/16/20 03:40 Mechanical Ventilator 04/16/20 03:40 45 04/16/20 03:31 89 20 30 04/16/20 01:14 98 20 30 04/16/20 00:36 147/72 04/16/20 00:00 97 04/16/20 00:00 45 04/16/20 00:00 Mechanical Ventilator 04/16/20 00:00 98.7 90 16 147/72 (97) 96 04/15/20 23:33 93 21 30 04/15/20 21:18 73 15 30 04/15/20 20:00 98.9 73 15 126/52 (76) 98 04/15/20 20:00 75 04/15/20 20:00 45 04/15/20 20:00 Mechanical Ventilator 04/15/20 19:16 73 15 30 04/15/20 17:32 126/56 04/15/20 15:58 Mechanical Ventilator 04/15/20 15:56 98.2 78 22 126/56 (79) 98 04/15/20 15:48 74 14 30 04/15/20 15:18 77 04/15/20 13:00 45 04/15/20 12:12 122/51 04/15/20 12:00 Mechanical Ventilator 04/15/20 11:50 98.2 80 21 122/51 (74) 100 04/15/20 11:45 74 04/15/20 11:06 76 16 30 04/15/20 11:00 65 04/15/20 09:09 82 141/63 04/15/20 08:00 Mechanical Ventilator 04/15/20 08:00 30 04/15/20 07:56 98.8 82 20 141/63 (89) 95 04/15/20 07:34 82 04/15/20 07:24 77 16 30 04/15/20 05:15 138/61 04/15/20 04:00 98.2 85 19 130/61 (84) 97 04/15/20 04:00 84 04/15/20 04:00 30 04/15/20 04:00 Mechanical Ventilator 04/15/20 03:30 81 15 30 04/15/20 00:00 98.5 98 17 136/65 (88) 96 04/15/20 00:00 Mechanical Ventilator 04/14/20 23:30 101 22 30 04/14/20 23:25 126/60 04/14/20 21:42 98.0 04/14/20 20:00 Mechanical Ventilator 04/14/20 20:00 98.7 113 17 145/81 (102) 95 04/14/20 20:00 114 04/14/20 20:00 30 04/14/20 19:30 80 17 30 04/14/20 17:32 142/56 04/14/20 16:00 Mechanical Ventilator 04/14/20 16:00 79 04/14/20 16:00 30 04/14/20 16:00 98.2 84 17 142/56 (84) 92 04/14/20 14:57 82 16 30 04/14/20 12:55 140/62 04/14/20 12:00 30 04/14/20 12:00 74 04/14/20 12:00 98.0 72 17 140/62 (88) 96 04/14/20 12:00 Mechanical Ventilator 04/14/20 11:50 70 17 30 04/14/20 08:33 74 149/62 04/14/20 08:00 98.2 74 16 149/62 (91) 96 04/14/20 08:00 Mechanical Ventilator 04/14/20 08:00 70 04/14/20 08:00 30 04/14/20 07:30 73 16 30 Intake and Output 04/15/20 04/16/20 19:00 07:00 Intake Total 570 ml 380 ml Balance 570 ml 380 ml Intake Free Water 90 ml 60 ml Tube Feeding 480 ml 320 ml Labs Test 04/13/20 13:11 04/14/20 03:10 04/15/20 03:20 04/15/20 03:25 POC Whole Blood Glucose 97 MG/DL (74-106) White Blood Count 6.3 K/UL (4.8-10.8) 11.2 K/UL (4.8-10.8) Red Blood Count 2.62 M/UL (4.20-5.40) 2.66 M/UL (4.20-5.40) Hemoglobin 7.9 G/DL (12.0-16.0) 7.9 G/DL (12.0-16.0) Hematocrit 23.2 % (37.0-47.0) 23.7 % (37.0-47.0) Mean Corpuscular Volume 89 FL (80-99) 89 FL (80-99) Mean Corpuscular Hemoglobin 30.1 PG (27.0-31.0) 29.8 PG (27.0-31.0) Mean Corpuscular Hemoglobin Concent 34.0 G/DL (32.0-36.0) 33.4 G/DL (32.0-36.0) Red Cell Distribution Width 15.1 % (11.6-14.8) 14.6 % (11.6-14.8) Platelet Count 313 K/UL (150-450) 318 K/UL (150-450) Mean Platelet Volume 4.9 FL (6.5-10.1) 5.2 FL (6.5-10.1) Neutrophils (%) (Auto) % (45.0-75.0) % (45.0-75.0) Lymphocytes (%) (Auto) % (20.0-45.0) % (20.0-45.0) Monocytes (%) (Auto) % (1.0-10.0) % (1.0-10.0) Eosinophils (%) (Auto) % (0.0-3.0) % (0.0-3.0) Basophils (%) (Auto) % (0.0-2.0) % (0.0-2.0) Sodium Level 141 MMOL/L (136-145) 141 MMOL/L (136-145) Potassium Level 3.3 MMOL/L (3.5-5.1) 3.7 MMOL/L (3.5-5.1) Chloride Level 103 MMOL/L (98-107) 104 MMOL/L (98-107) Carbon Dioxide Level 30 MMOL/L (21-32) 28 MMOL/L (21-32) Anion Gap 8 mmol/L (5-15) 9 mmol/L (5-15) Blood Urea Nitrogen 80 mg/dL (7-18) 91 mg/dL (7-18) Creatinine 2.5 MG/DL (0.55-1.30) 2.9 MG/DL (0.55-1.30) Estimat Glomerular Filtration Rate 20.6 mL/min (>60) 17.4 mL/min (>60) Glucose Level 107 MG/DL (74-106) 99 MG/DL (74-106) Calcium Level 8.3 MG/DL (8.5-10.1) 7.9 MG/DL (8.5-10.1) Phosphorus Level 1.7 MG/DL (2.5-4.9) 2.8 MG/DL (2.5-4.9) Magnesium Level 2.5 MG/DL (1.8-2.4) 2.5 MG/DL (1.8-2.4) Total Bilirubin 0.4 MG/DL (0.2-1.0) 0.5 MG/DL (0.2-1.0) Aspartate Amino Transf (AST/SGOT) 34 U/L (15-37) 37 U/L (15-37) Alanine Aminotransferase (ALT/SGPT) 15 U/L (12-78) 17 U/L (12-78) Alkaline Phosphatase 193 U/L (46-116) 165 U/L (46-116) Total Protein 5.8 G/DL (6.4-8.2) 5.7 G/DL (6.4-8.2) Albumin 1.3 G/DL (3.4-5.0) 1.3 G/DL (3.4-5.0) Globulin 4.5 g/dL Albumin/Globulin Ratio 0.3 (1.0-2.7) Direct Bilirubin 0.2 MG/DL (0.0-0.3) Differential Total Cells Counted 100 Neutrophils % (Manual) 75 % (45-75) Lymphocytes % (Manual) 19 % (20-45) Monocytes % (Manual) 3 % (1-10) Eosinophils % (Manual) 0 % (0-3) Basophils % (Manual) 0 % (0-2) Band Neutrophils 3 % (0-8) Platelet Estimate Adequate Platelet Morphology Normal Hypochromasia 3+ Test 04/16/20 03:20 White Blood Count 13.7 K/UL (4.8-10.8) Red Blood Count 2.53 M/UL (4.20-5.40) Hemoglobin 7.7 G/DL (12.0-16.0) Hematocrit 22.8 % (37.0-47.0) Mean Corpuscular Volume 90 FL (80-99) Mean Corpuscular Hemoglobin 30.4 PG (27.0-31.0) Mean Corpuscular Hemoglobin Concent 33.7 G/DL (32.0-36.0) Red Cell Distribution Width 14.9 % (11.6-14.8) Platelet Count 320 K/UL (150-450) Mean Platelet Volume 5.6 FL (6.5-10.1) Neutrophils (%) (Auto) % (45.0-75.0) Lymphocytes (%) (Auto) % (20.0-45.0) Monocytes (%) (Auto) % (1.0-10.0) Eosinophils (%) (Auto) % (0.0-3.0) Basophils (%) (Auto) % (0.0-2.0) Height (Feet): 5 Height (Inches): 3.00 Weight (Pounds): 128 Objective Physical Exam: Vitals: reviewed General: NAD HEENT: nc, at Neck: supple ++trach/vent Chest: clear breath sounds bilaterally Cardiovascular: RRR, no s3, s4 Abdomen: soft, nontender, nd +gtube Extremities: no cce, normal range of motion Neuro: alert Evan Muhammad MD Apr 16, 2020 06:24
[2020-04-16 06:43] LABS: PHOSPHORUS 2.7 MG/DL (2.5-4.9)
--- NOTE | 2020-04-16 07:15 | NUR ---
NURSE HAND-OFF REPORT: Important Events on Shift: No changes Patient Status: Stable Diet: Nepro Pending Orders: Pending Results/Labs: Pending MD notification: Latest Vital Signs: Temperature 99.9 , Pulse 93 , B/P 124 /61 , Respiratory Rate 15 , O2 SAT 94 , Mechanical Ventilator, O2 Flow Rate . Vital Sign Comment: EKG Rhythm: Sinus Tachycardia Rhythm change?: N Notified?: N -Dr Екатерина HATFIELD Response: Order Received& Read Back Latest Chavarria Fall Score: 70 Fall Risk: High Risk Safety Measures: Call light Within Reach, Bed Alarm Zone 2, Side Rails Side Rails x3, Bed position Low and Locked. Fall Precautions: Yellow Socks Report given to ERASMO Lu.
--- NOTE | 2020-04-16 07:17 | NUR ---
NURSE NOTES: Received pt from ERASMO Mancilla, pt is sleeping, pt has trach to ventilator AC 14 TV 500 PEEP 5 FIO2 45%, Pt is on continues heart monitoring. pt has g tube in place is working well. pt has intact iv access L wrist 18G SL. All needs attended, bed is locked and is in the lowest position, call light within easy reach. will continue to monitor.
[2020-04-16 07:52] VITALS: BP 123/61
[2020-04-16] MEDS: Hydrocortisone 25mg supp RECTAL SCH ×2 (08:09→20:31)
[2020-04-16] MEDS: Aspirin Baby 81mg GT SCH (08:09)
[2020-04-16] MEDS: HYDROmorphone 1mg/ml Carpuject IVP PRN ×3 (08:11→20:32)
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
--- NOTE | 2020-04-16 10:37 | Pulmonology Progress Note ---
Subjective ROS Limited/Unobtainable: Yes Interval Events: none major reported per nursing Constitutional: Reports: fever, other - Tmax=99.9 HEENT: Repors: no symptoms Respiratory: Reports: no symptoms Cardiovascular: Reports: no symptoms Gastrointestinal/Abdominal: Reports: diarrhea Allergies: Coded Allergies: No Known Allergies (Unverified , 10/10/17) All Systems: reviewed and negative except above Objective Last 24 Hour Vital Signs Date Time Temp Pulse Resp B/P (MAP) Pulse Ox O2 Delivery O2 Flow Rate FiO2 04/16/20 08:09 94 123/61 04/16/20 08:09 94 123/61 04/16/20 07:58 30 04/16/20 07:55 Mechanical Ventilator 04/16/20 07:54 96 04/16/20 07:52 98.4 94 25 123/61 (81) 94 04/16/20 07:05 102 23 30 04/16/20 05:25 124/61 04/16/20 05:06 93 15 30 04/16/20 04:00 113 04/16/20 04:00 99.9 95 16 152/69 (96) 94 04/16/20 03:40 Mechanical Ventilator 04/16/20 03:40 45 04/16/20 03:31 89 20 30 04/16/20 01:14 98 20 30 04/16/20 00:36 147/72 04/16/20 00:00 97 04/16/20 00:00 45 04/16/20 00:00 Mechanical Ventilator 04/16/20 00:00 98.7 90 16 147/72 (97) 96 04/15/20 23:33 93 21 30 04/15/20 21:18 73 15 30 04/15/20 20:00 98.9 73 15 126/52 (76) 98 04/15/20 20:00 75 04/15/20 20:00 45 04/15/20 20:00 Mechanical Ventilator 04/15/20 19:16 73 15 30 04/15/20 17:32 126/56 04/15/20 15:58 Mechanical Ventilator 04/15/20 15:56 98.2 78 22 126/56 (79) 98 04/15/20 15:48 74 14 30 04/15/20 15:18 77 04/15/20 13:00 45 04/15/20 12:12 122/51 04/15/20 12:00 Mechanical Ventilator 04/15/20 11:50 98.2 80 21 122/51 (74) 100 04/15/20 11:45 74 04/15/20 11:06 76 16 30 04/15/20 11:00 65 Intake and Output 04/15/20 04/16/20 19:00 07:00 Intake Total 570 ml 380 ml Balance 570 ml 380 ml Intake Free Water 90 ml 60 ml Tube Feeding 480 ml 320 ml General Appearance: no acute distress HEENT: atraumatic, status post trach Respiratory: rhonchi - bilaterally Cardiovascular: normal rate, regular rhythm Extremities: other - edema bilateral Laboratory Tests 04/16/20 03:20: White Blood Count 13.7H, Red Blood Count 2.53L, Hemoglobin 7.7L, Hematocrit 22.8L, Mean Corpuscular Volume 90, Mean Corpuscular Hemoglobin 30.4, Mean Corpuscular Hemoglobin Concent 33.7, Red Cell Distribution Width 14.9H, Platelet Count 320, Mean Platelet Volume 5.6L, Neutrophils (%) (Auto) , Lymphocytes (%) (Auto) , Monocytes (%) (Auto) , Eosinophils (%) (Auto) , Basophils (%) (Auto) , Differential Total Cells Counted 100, Neutrophils % (Manual) 75, Lymphocytes % (Manual) 16L, Monocytes % (Manual) 5, Eosinophils % (Manual) 4H, Basophils % (Manual) 0, Band Neutrophils 0, Platelet Estimate Adequate, Platelet Morphology Normal, Anisocytosis 1+, Sodium Level 139, Potassium Level 4.0, Chloride Level 101, Carbon Dioxide Level 27, Anion Gap 11, Blood Urea Nitrogen 101H, Creatinine 3.1H, Estimat Glomerular Filtration Rate 16.1, Glucose Level 82, Calcium Level 8.2L, Phosphorus Level 2.7, Total Bilirubin 0.4, Aspartate Amino Transf (AST/SGOT) 33, Alanine Aminotransferase (ALT/SGPT) 14, Alkaline Phosphatase 168H , C-Reactive Protein, Quantitative 34.2H, Pro-B-Type Natriuretic Peptide > 20883X, Total Protein 6.4, Albumin 1.4L, Globulin 5.0, Albumin/Globulin Ratio 0.3L Current Medications Medications (Trade) Dose Ordered Sig/Penny Route PRN Reason Start Time Stop Time Status Last Admin Dose Admin Amlodipine Besylate (Norvasc) 5 mg DAILY ORAL 2/26/21 09:00 05/10/20 08:59 04/16/20 08:09 Aspirin (ASA) 81 mg DAILY GT 03/07/20 09:00 04/21/20 08:59 04/16/20 08:09 Carvedilol (Coreg) 3.125 mg EVERY 12 HOURS ORAL 04/16/20 09:00 05/16/20 08:59 04/16/20 08:09 Chlorhexidine Gluconate (Ling-Hex 2%) 1 applic DAILY@1999 TOPIC 03/03/20 20:00 06/01/20 19:59 04/15/20 20:20 Dextrose (Dextrose 50%) 25 ml Q30M PRN IV Hypoglycemia 03/15/20 07:30 06/13/20 07:29 04/05/20 09:08 Dextrose (Dextrose 50%) 50 ml Q30M PRN IV Hypoglycemia 03/15/20 07:30 06/13/20 07:29 Hydralazine HCl (Apresoline) 25 mg Q6H PRN GT For High Blood Pressure 03/02/20 22:00 05/31/20 21:59 04/12/20 22:05 Hydralazine HCl (Apresoline) 50 mg Q6HR GT 04/07/20 00:00 07/06/20 00:00 04/16/20 05:25 Hydrocortisone (Anusol HC) 25 mg Q12HR RECTAL 03/23/20 21:00 06/21/20 08:59 04/16/20 08:09 Hydromorphone HCl (Dilaudid) 0.5 mg Q4H PRN IVP For Pain 04/09/20 22:30 04/16/20 22:29 04/16/20 08:11 Lansoprazole (Prevacid) 30 mg BID GT 04/13/20 09:00 05/13/20 08:59 04/16/20 08:09 Sodium Hypochlorite (Dakin's Quarter Strength) 1 applic BEDTIME TOPIC 04/04/20 21:00 05/02/20 08:59 04/15/20 20:21 Sorbitol (sorbitoL) 30 ml Q6HR PRN ORAL Constipation 04/11/20 12:15 05/11/20 12:14 04/12/20 20:44 Sucralfate (Carafate) 1 gm EVERY 6 HOURS GT 03/17/20 18:00 06/09/20 08:59 04/16/20 05:26 Tramadol HCl (Ultram) 50 mg Q6H PRN GT Moderate Pain (Pain Scale 4-6) 04/09/20 22:30 04/16/20 22:29 04/13/20 09:33 Zinc Oxide (Zinc Oxide) 1 applic Q8HR TOPIC 03/25/20 22:00 06/22/20 17:59 04/16/20 05:27 Assessment/Plan Assessment/Plan 1. Chronic respiratory failure. - CT chest/abd/pelv: improving pleural effusion 2. Mechanical ventilation. - remains on 30% FiO2 saturating well - pulmonary hygiene 3. Chronic tracheostomy. 4. Chronic G-tube. 5. Anemia. - s/p transfusion - stool OB positive (03/02, 03/03, 03/22) - off anticoags 6. Renal failure. 7. Leukocytosis and sepsis. - WBC now wnl 8. Sepsis UTI 9. Gram positive cocci bacteremia - f/u BCx negative for growth 10. COVID-19 negative 11. Diarrhea - C. diff neg 12. Hypoglycemia - resolved 13. Bradycardia - no urgent indication for pacemaker per cardio 14. Gastric ulcer - on PPI -No active bleeding - GI following 15. Pleural effusion - small; insufficient volume for safe thoracentesis - on HD 16. thoracic aortic aneurysm - noted on CT imaging - pt needs emergent transfer out to [facility] for CT surgery evaluation, primary MD aware - Pt might not be a candidate for TAA repair 17. Ascites - s/p paracentesis (03/18), 2.3L out 18. DVT ppx - on SCD -Venous duplex ultrasound of legs negative for DVT (03/25) Noted discharge planning to [facility] stable for discharge from pulmonary standpoint The care of this patient was discussed with my supervising physician Time spent for this encounter was approximately 31 minutes Cruz Wilson Apr 16, 2020 10:37
[2020-04-16 11:52] VITALS: BP 101/50
--- NOTE | 2020-04-16 12:50 | Nephrology Progress Note ---
Assessment/Plan Problem List: (1) Renal failure (ARF), acute on chronic (2) Anemia (3) Hyponatremia (4) Respiratory failure Assessment (1) JAVIER (acute kidney injury) (2) Renal failure (ARF), acute on chronic (3) Feeding by G-tube (4) Tracheostomy in place (5) Electrolyte imbalance, hyponatremia (6) Anemia, severe (7) Respiratory failure, acute and chronic (8) history of elevated lipase, pancreatitis (9) Elevated troponin I (10) Sepsis Plan April 16: Labs reviewed. Will order dialysis for tomorrow April 17. Renal parameters electrolytes stable. Continue per consultants. April 15: Labs reviewed. Last dialysis April 13. Electrolytes in check. Continue current management. Dialysis as needed. April 14: Labs reviewed. Dialyzed yesterday. Abnormal electrolytes and low phosphorus addressed. Continue to monitor renal parameters and dialysis arrangement as needed. April 13: No labs drawn today. Due for hemodialysis today. Will check lab tomorrow. Continue per consultants. April 12: Labs reviewed. Low phosphorus replaced. Hemodialysis tomorrow. Continue per consultants. April 11: No labs drawn today. Will check lab tomorrow. Last dialysis April 08. Continue per consultants. April 10: Labs reviewed. Renal parameters stable. Hemoglobin higher. Hemodialysis as needed. Low potassium addressed. April 09: Dialyzed yesterday. Discussed with RN. Hemoglobin low. Suggest transfusion 1 unit of packed RBCs. April 08: Dialysis today. Blood pressure medication adjusted. Check lab tomorrow. Continue per consultants. April 07: Patient remains full code. Heart rate improved. Medication list reviewed. Labs reviewed. Will order dialysis for tomorrow. Continue per c onsultants. April 06: Full code. Intubated via trach on ventilator. FiO2 30%. Blood sugar stable. D50 will be discontinued. Continue feeding. Dialysis as needed. April 05: Remains in ICU. Low heart rate persists. Will initiate low-dose hydralazine with blood pressure parameters. Last dialysis April 03. Blood sugar stable on 30 mL of D10 hourly. GT feeding started. Continue to monitor electrolytes renal parameters and arrange for dialysis as needed. April 04: Patient currently in ICU due to low heart rate. Blood pressure is stable. Dialyzed yesterday. Labs reviewed. Renal parameters and electrolytes stable. Medication list reviewed. Continue per cardiology with regard to bradycardia. April 03: Labs reviewed. We will order dialysis today. Continue per consultants. April 02: Labs reviewed. No need for dialysis today. Continue to monitor renal parameters. April 01: Labs reviewed. Renal parameters stable. No dialysis today. Continue per consultants. March 31: No labs drawn today. Renal parameters stable as of yesterday. Will check lab tomorrow. Dialysis as needed. March 30: Labs reviewed. Low phosphorus addressed. Continue per PMD and consultants. Dialysis as needed. March 29: Dialyzed yesterday. No CHEM panel drawn today. We will continue to monitor renal parameters. Continue per consultants. March 28: Due for dialysis today. Labs reviewed. Stable from renal standpoint of view. March 27: Due for dialysis tomorrow. Labs reviewed. Medication list reviewed. Continue per current management. March 26: Last dialyzed March 24. Labs reviewed. Low phosphorus replaced. Continue to monitor renal parameters. Dialysis as needed. March 25: Dialyzed yesterday. Labs reviewed. Low phosphorus replaced. Continue per current management. Hemoglobin higher. March 24: Labs reviewed. Due for dialysis today. Continue per current management. Hemoglobin lower. Transfusion per canine service teacher. March 23: Labs reviewed. Dialyzed yesterday. Next dialysis tomorrow. Anemia management per canine service teacher. March 22: Labs reviewed. Due for dialysis today. Discussed with RN. Agree with discontinuation of the Norman catheter. Hemoglobin lower. Transfusion per canine service teacher. March 21: Labs reviewed. Will arrange for dialysis tomorrow. Continue per consultants. Will hold phosphorus binders at this time. March 20: Labs reviewed. Patient was dialyzed yesterday. Electrolyte abnormalities corrected. Continue per current management. March 19: Due for dialysis today. Abnormal labs noted. All will be corrected after dialysis. March 18: Labs reviewed. Will dialyze tomorrow. Patient being transfused today. Patient due for abdominal paracentesis. We will keep the Norman in. Continue to monitor renal parameters and dialyze as needed. March 17: No CHEM panel done today. CBC reviewed. Hemoglobin is lowering. Dialyzed yesterday. Will check lab tomorrow. Continue per consultants. March 16: Labs reviewed. Due for dialysis today. Hemoglobin 10.2 today. Continue to monitor renal parameters. March 15: Labs reviewed. Dialyzed March 13. Due for dialysis March 16. Hemoglobin lower. 1 unit of packed RBCs ordered. Per orders. March 14: No labs drawn today. Dialyzed yesterday. Full code. Will check lab tomorrow. Dialysis as needed. March 13: Labs reviewed. Due for dialysis today. Patient remains full code. Continue per current management. March 12: Labs reviewed. Dialyzed yesterday. Due for dialysis tomorrow. Discussed with RN. Patient full code. Continue per current management. March 11: Labs reviewed. Dialyzed this morning. Phosphorus binders dose adjusted. Continue per consultants. Continue to monitor renal parameters. CT: Extensive thoracoabdominal aortic dissection March 10: Labs reviewed. Will order dialysis tomorrow. Phosphorus binders added. Continue per consultants. March 09: No chemistry panel done today. Patient dialyzed yesterday. On dextrose 10% for hypoglycemia. We will check labs tomorrow. Dialysis as needed. March 08: Labs reviewed. Will order dialysis today. Blood sugar low. D10 50 cc an hour started. Continue as is. March 07: Labs reviewed. Dialyzed March 05 and March 06. Continue to monitor renal parameters and hemoglobin. Abnormal electrolytes addressed. IV fluids stopped. Per orders. March 06: Labs reviewed. Dialyzed yesterday. Will reorder dialysis for today. Continue to monitor renal parameters. Hemoglobin 8.4. Patient full c ode. March 05: Labs reviewed. Patient did not receive dialysis until this morning. Proceed with dialysis. Continue to monitor renal parameters and hemoglobin and hematocrit. March 04: Labs reviewed. Hemoglobin lower. Patient actively bleeding. Was not dialyzed yesterday. Due for GI endoscopy. Continue fluid challenge. Transfusion as needed. Dialysis today. March 03: Labs reviewed. Dialysis ordered. Blood pressure medication all discontinued due to hypotensive state. Albumin bolus given. Continue to monitor renal parameters. Medication list reviewed. Midodrin for low blood pressure ordered Subjective ROS Limited/Unobtainable: Yes Objective Objective Last 24 Hour Vital Signs Date Time Temp Pulse Resp B/P (MAP) Pulse Ox O2 Delivery O2 Flow Rate FiO2 04/16/20 12:00 101/50 04/16/20 11:52 98.6 69 21 101/50 (67) 95 04/16/20 11:23 66 14 30 04/16/20 08:09 94 123/61 04/16/20 08:09 94 123/61 04/16/20 07:58 30 04/16/20 07:55 Mechanical Ventilator 04/16/20 07:54 96 04/16/20 07:52 98.4 94 25 123/61 (81) 94 04/16/20 07:05 102 23 30 04/16/20 05:25 124/61 04/16/20 05:06 93 15 30 04/16/20 04:00 113 04/16/20 04:00 99.9 95 16 152/69 (96) 94 04/16/20 03:40 Mechanical Ventilator 04/16/20 03:40 45 04/16/20 03:31 89 20 30 04/16/20 01:14 98 20 30 04/16/20 00:36 147/72 04/16/20 00:00 97 04/16/20 00:00 45 04/16/20 00:00 Mechanical Ventilator 04/16/20 00:00 98.7 90 16 147/72 (97) 96 04/15/20 23:33 93 21 30 04/15/20 21:18 73 15 30 04/15/20 20:00 98.9 73 15 126/52 (76) 98 04/15/20 20:00 75 04/15/20 20:00 45 04/15/20 20:00 Mechanical Ventilator 04/15/20 19:16 73 15 30 04/15/20 17:32 126/56 04/15/20 15:58 Mechanical Ventilator 04/15/20 15:56 98.2 78 22 126/56 (79) 98 04/15/20 15:48 74 14 30 04/15/20 15:18 77 04/15/20 13:00 45 Intake and Output 04/15/20 04/16/20 19:00 07:00 Intake Total 570 ml 380 ml Balance 570 ml 380 ml Intake Free Water 90 ml 60 ml Tube Feeding 480 ml 320 ml Current Medications Medications (Trade) Dose Ordered Sig/Penny Route PRN Reason Start Time Stop Time Status Last Admin Dose Admin Amlodipine Besylate (Norvasc) 5 mg DAILY ORAL 04/10/20 09:00 05/10/20 08:59 04/16/20 08:09 Aspirin (ASA) 81 mg DAILY GT 03/07/20 09:00 04/21/20 08:59 04/16/20 08:09 Carvedilol (Coreg) 3.125 mg EVERY 12 HOURS ORAL 04/16/20 09:00 05/16/20 08:59 04/16/20 08:09 Chlorhexidine Gluconate (Ling-Hex 2%) 1 applic DAILY@1999 TOPIC 03/03/20 20:00 06/01/20 19:59 04/15/20 20:20 Dextrose (Dextrose 50%) 25 ml Q30M PRN IV Hypoglycemia 03/15/20 07:30 06/13/20 07:29 04/05/20 09:08 Dextrose (Dextrose 50%) 50 ml Q30M PRN IV Hypoglycemia 03/15/20 07:30 06/13/20 07:29 Hydralazine HCl (Apresoline) 25 mg Q6H PRN GT For High Blood Pressure 03/02/20 22:00 05/31/20 21:59 04/12/20 22:05 Hydralazine HCl (Apresoline) 50 mg Q6HR GT 04/07/20 00:00 07/06/20 00:00 04/16/20 05:25 Hydrocortisone (Anusol HC) 25 mg Q12HR RECTAL 03/23/20 21:00 06/21/20 08:59 04/16/20 08:09 Hydromorphone HCl (Dilaudid) 0.5 mg Q4H PRN IVP For Pain 04/09/20 22:30 04/16/20 22:29 04/16/20 08:11 Lansoprazole (Prevacid) 30 mg BID GT 04/13/20 09:00 05/13/20 08:59 04/16/20 08:09 Sodium Hypochlorite (Dakin's Quarter Strength) 1 applic BEDTIME TOPIC 04/04/20 21:00 05/02/20 08:59 04/15/20 20:21 Sorbitol (sorbitoL) 30 ml Q6HR PRN ORAL Constipation 04/11/20 12:15 05/11/20 12:14 04/12/20 20:44 Sucralfate (Carafate) 1 gm EVERY 6 HOURS GT 03/17/20 18:00 06/09/20 08:59 04/16/20 12:34 Tramadol HCl (Ultram) 50 mg Q6H PRN GT Moderate Pain (Pain Scale 4-6) 04/09/20 22:30 04/16/20 22:29 04/13/20 09:33 Zinc Oxide (Zinc Oxide) 1 applic Q8HR TOPIC 03/25/20 22:00 06/22/20 17:59 04/16/20 05:27 Laboratory Tests 04/16/20 03:20: White Blood Count 13.7H, Red Blood Count 2.53L, Hemoglobin 7.7L, Hematocrit 22.8L, Mean Corpuscular Volume 90, Mean Corpuscular Hemoglobin 30.4, Mean Corpuscular Hemoglobin Concent 33.7, Red Cell Distribution Width 14.9H, Platelet Count 320, Mean Platelet Volume 5.6L, Neutrophils (%) (Auto) , Lymphocytes (%) (Auto) , Monocytes (%) (Auto) , Eosinophils (%) (Auto) , Basophils (%) (Auto) , Differential Total Cells Counted 100, Neutrophils % (Manual) 75, Lymphocytes % (Manual) 16L, Monocytes % (Manual) 5, Eosinophils % (Manual) 4H, Basophils % (Ma nual) 0, Band Neutrophils 0, Platelet Estimate Adequate, Platelet Morphology Normal, Anisocytosis 1+, Sodium Level 139, Potassium Level 4.0, Chloride Level 101, Carbon Dioxide Level 27, Anion Gap 11, Blood Urea Nitrogen 101H, Creatinine 3.1H, Estimat Glomerular Filtration Rate 16.1, Glucose Level 82, Calcium Level 8.2L, Phosphorus Level 2.7, Total Bilirubin 0.4, Aspartate Amino Transf (AST/SGOT) 33, Alanine Aminotransferase (ALT/SGPT) 14, Alkaline Phosphatase 168H , C-Reactive Protein, Quantitative 34.2H, Pro-B-Type Natriuretic Peptide > 63248S, Total Protein 6.4, Albumin 1.4L, Globulin 5.0, Albumin/Globulin Ratio 0.3L Height (Feet): 5 Height (Inches): 3.00 Weight (Pounds): 128 General Appearance: no apparent distress Cardiovascular: normal rate Respiratory/Chest: decreased breath sounds Abdomen: soft, distended Johnny Houston MD Apr 16, 2020 12:50
--- NOTE | 2020-04-16 14:29 | General Progress Note ---
Subjective ROS Limited/Unobtainable: No Allergies: Coded Allergies: No Known Allergies (Unverified , 10/10/17) Objective Last 24 Hour Vital Signs Date Time Temp Pulse Resp B/P (MAP) Pulse Ox O2 Delivery O2 Flow Rate FiO2 04/16/20 12:00 Mechanical Ventilator 04/16/20 12:00 101/50 04/16/20 12:00 30 04/16/20 11:52 98.6 69 21 101/50 (67) 95 04/16/20 11:40 69 04/16/20 11:23 66 14 30 04/16/20 08:09 94 123/61 04/16/20 08:09 94 123/61 04/16/20 07:58 30 04/16/20 07:55 Mechanical Ventilator 04/16/20 07:54 96 04/16/20 07:52 98.4 94 25 123/61 (81) 94 04/16/20 07:05 102 23 30 04/16/20 05:25 124/61 04/16/20 05:06 93 15 30 04/16/20 04:00 113 04/16/20 04:00 99.9 95 16 152/69 (96) 94 04/16/20 03:40 Mechanical Ventilator 04/16/20 03:40 45 04/16/20 03:31 89 20 30 04/16/20 01:14 98 20 30 04/16/20 00:36 147/72 04/16/20 00:00 97 04/16/20 00:00 45 04/16/20 00:00 Mechanical Ventilator 04/16/20 00:00 98.7 90 16 147/72 (97) 96 04/15/20 23:33 93 21 30 04/15/20 21:18 73 15 30 04/15/20 20:00 98.9 73 15 126/52 (76) 98 04/15/20 20:00 75 04/15/20 20:00 45 04/15/20 20:00 Mechanical Ventilator 04/15/20 19:16 73 15 30 04/15/20 17:32 126/56 04/15/20 15:58 Mechanical Ventilator 04/15/20 15:56 98.2 78 22 126/56 (79) 98 04/15/20 15:48 74 14 30 04/15/20 15:18 77 Intake and Output 04/15/20 04/16/20 19:00 07:00 Intake Total 570 ml 420 ml Balance 570 ml 420 ml Intake Free Water 90 ml 60 ml Tube Feeding 480 ml 360 ml Laboratory Tests 04/16/20 03:20: White Blood Count 13.7H, Red Blood Count 2.53L, Hemoglobin 7.7L, Hematocrit 22.8L, Mean Corpuscular Volume 90, Mean Corpuscular Hemoglobin 30.4, Mean Corpuscular Hemoglobin Concent 33.7, Red Cell Distribution Width 14.9H, Platelet Count 320, Mean Platelet Volume 5.6L, Neutrophils (%) (Auto) , Lymphocytes (%) (Auto) , Monocytes (%) (Auto) , Eosinophils (%) (Auto) , Basophils (%) (Auto) , Differential Total Cells Counted 100, Neutrophils % (Manual) 75, Lymphocytes % (Manual) 16L, Monocytes % (Manual) 5, Eosinophils % (Manual) 4H, Basophils % (Manual) 0, Band Neutrophils 0, Platelet Estimate Adequate, Platelet Morphology Normal, Anisocytosis 1+, Sodium Level 139, Potassium Level 4.0, Chloride Level 1 01, Carbon Dioxide Level 27, Anion Gap 11, Blood Urea Nitrogen 101H, Creatinine 3.1H, Estimat Glomerular Filtration Rate 16.1, Glucose Level 82, Calcium Level 8.2L, Phosphorus Level 2.7, Total Bilirubin 0.4, Aspartate Amino Transf (AST/SGOT) 33, Alanine Aminotransferase (ALT/SGPT) 14, Alkaline Phosphatase 168H , C-Reactive Protein, Quantitative 34.2H, Pro-B-Type Natriuretic Peptide > 00967C, Total Protein 6.4, Albumin 1.4L, Globulin 5.0, Albumin/Globulin Ratio 0.3L Height (Feet): 5 Height (Inches): 3.00 Weight (Pounds): 128 General Appearance: no apparent distress EENT: normal ENT inspection Neck: supple Cardiovascular: normal rate Respiratory/Chest: decreased breath sounds Abdomen: hypoactive bowel sounds Extremities: non-tender Assessment/Plan Problem List: (1) Hx of CABG ICD Codes: Z95.1 - Presence of aortocoronary bypass graft SNOMED: 143210232, 784702256 (2) History of tracheostomy ICD Codes: Z98.890 - Other specified postprocedural states SNOMED: 841329989, 360442171 (3) PEG (percutaneous endoscopic gastrostomy) status ICD Codes: Z93.1 - Gastrostomy status SNOMED: 809917247, 014695597 (4) Renal failure ICD Codes: N19 - Unspecified kidney failure SNOMED: 99603878, 286586433 (5) Severe anemia ICD Codes: D64.9 - Anemia, unspecified SNOMED: 398513994 Assessment/Plan: s/p EGD gastric ulcer carafate fu H&H GTF fu labs supportive care prevacid Inder Mccauley MD Apr 16, 2020 14:29
--- NOTE | 2020-04-16 14:45 | NUR ---
RADIOLOGY DEPT., CHEST X-RAY DONE.-P.DYE
--- NOTE | 2020-04-16 14:45 | Diagnostic Imaging Report ---
Indication: Shortness of breath Technique: One view of the chest Comparison: 04/07/2020 Findings: Right pleural effusion appears slightly increased. Retrocardiac consolidation persists, may be slightly increased. There is some atelectasis in the left perihilar region, not evident previously. Tracheostomy, tunneled dialysis catheter remain Impression: Increased right pleural effusion and retrocardiac consolidation
[2020-04-16 16:00] VITALS: BP 121/73
--- NOTE | 2020-04-16 16:00 | NUR ---
NURSE NOTES: COVID SWAB SENT TO LAB.
--- NOTE | 2020-04-16 16:55 | NUR ---
NURSE NOTES: wound treatment done as order and pt tolerated well.
--- NOTE | 2020-04-16 17:35 | NUR ---
ELECTRIC CRANE OPERATOR NOTES PT ACCEPTED TO [facility] [address] [facility] TO TRANSPORT PT WITH AN ETA [phone]. Addendum: 04/16/20 at 1740 by KATERIN CARRILLO RN CM RECEIVED A CALL FROM AMELIE REQUESTING PT TO BE ADMITTED IN AM.
--- NOTE | 2020-04-16 19:09 | NUR ---
NURSE HAND-OFF REPORT: Important Events on Shift:order to D/C tomorrow morning. Patient Status: Diet: Pending Orders: Pending Results/Labs: Pending MD notification: Latest Vital Signs: Temperature 97.7 , Pulse 97 , B/P 121 /73 , Respiratory Rate 21 , O2 SAT 95 , Mechanical Ventilator, O2 Flow Rate . Vital Sign Comment: EKG Rhythm: Sinus Rhythm Rhythm change?: N MD Notified?: N -Dr Екатерина HATFIELD Response: Order Received& Read Back Latest [place] Fall Score: 70 Fall Risk: High Risk Safety Measures: Call light Within Reach, Bed Alarm Zone 2, Side Rails Side Rails x3, Bed position Low and Locked. Fall Precautions: Yellow Socks Report given to . pt is sleeping and stable, no stress noted. endorsed plan of care, endorsed to F/U sputum and blood culture results.
--- NOTE | 2020-04-16 19:10 | NUR ---
NURSE NOTES: Report received from ERASMO Lu with update. Upon assessment pt is awake; responsive to verbal/tactile stimuli; PERRLA. 5-lead EKG shows SR at 88 BPM. Saturating 94% on vent settings of AC 14 and 30% fiO2. Bleeding in suction canister observed from trach site and mouth. Vitals stable otherwise. Afebrile. G-tube running Nepro at 40 mL with 0 residual noted. Still leaking from GT site. Bed kept in lowest and locked position. Side rails up x3. Will monitor.
[2020-04-16 20:00] VITALS: BP 121/66
--- NOTE | 2020-04-16 20:00 | NUR ---
NURSE NOTES: Dr. Dong at bedside. Initial order to discharge toady but Arabella requests to send pt tomorrow AM instead. Discharge orders to continue all hospital meds and cancel HD if coincides with DC schedule. MD aware of bleeding from trach site. Pt is otherwise stable.
--- NOTE | 2020-04-16 20:03 | General Progress Note ---
Subjective Constitutional: Reports: no symptoms HEENT: Reports: no symptoms Cardiovascular: Reports: no symptoms Respiratory: Reports: no symptoms Gastrointestinal/Abdominal: Reports: no symptoms Genitourinary: Reports: no symptoms Neurologic/Psychiatric: Reports: depressed Endocrine: Reports: no symptoms Hematologic/Lymphatic: Reports: no symptoms Allergies: Coded Allergies: No Known Allergies (Unverified , 10/10/17) Objective Last 24 Hour Vital Signs Date Time Temp Pulse Resp B/P (MAP) Pulse Ox O2 Delivery O2 Flow Rate FiO2 04/16/20 19:38 83 24 30 04/16/20 17:05 121/73 04/16/20 16:00 30 04/16/20 16:00 Mechanical Ventilator 04/16/20 16:00 97.7 97 21 121/73 (89) 95 04/16/20 15:23 78 04/16/20 15:00 81 21 30 04/16/20 12:00 Mechanical Ventilator 04/16/20 12:00 101/50 04/16/20 12:00 30 04/16/20 11:52 98.6 69 21 101/50 (67) 95 04/16/20 11:40 69 04/16/20 11:23 66 14 30 04/16/20 08:09 94 123/61 04/16/20 08:09 94 123/61 04/16/20 07:58 30 04/16/20 07:55 Mechanical Ventilator 04/16/20 07:54 96 04/16/20 07:52 98.4 94 25 123/61 (81) 94 04/16/20 07:05 102 23 30 04/16/20 05:25 124/61 04/16/20 05:06 93 15 30 04/16/20 04:00 113 04/16/20 04:00 99.9 95 16 152/69 (96) 94 04/16/20 03:40 Mechanical Ventilator 04/16/20 03:40 45 04/16/20 03:31 89 20 30 04/16/20 01:14 98 20 30 04/16/20 00:36 147/72 04/16/20 00:00 97 04/16/20 00:00 45 04/16/20 00:00 Mechanical Ventilator 04/16/20 00:00 98.7 90 16 147/72 (97) 96 04/15/20 23:33 93 21 30 04/15/20 21:18 73 15 30 04/15/20 20:00 98.9 73 15 126/52 (76) 98 04/15/20 20:00 75 04/15/20 20:00 45 04/15/20 20:00 Mechanical Ventilator Intake and Output 04/15/20 04/16/20 19:00 07:00 Intake Total 570 ml 420 ml Balance 570 ml 420 ml Intake Free Water 90 ml 60 ml Tube Feeding 480 ml 360 ml Laboratory Tests 04/16/20 03:20: White Blood Count 13.7H, Red Blood Count 2.53L, Hemoglobin 7.7L, Hematocrit 22.8L, Mean Corpuscular Volume 90, Mean Corpuscular Hemoglobin 30.4, Mean Corpuscular Hemoglobin Concent 33.7, Red Cell Distribution Width 14.9H, Platelet Count 320, Mean Platelet Volume 5.6L, Neutrophils (%) (Auto) , Lymphocytes (%) (Auto) , Monocytes (%) (Auto) , Eosinophils (%) (Auto) , Basophils (%) (Auto) , Differential Total Cells Counted 100, Neutrophils % (Manual) 75, Lymphocytes % (Manual) 16L, Monocytes % (Manual) 5, Eosinophils % (Manual) 4H, Basophils % (Manual) 0, Band Neutrophils 0, Platelet Estimate Adequate, Platelet Morphology Normal, Anisocytosis 1+, Sodium Level 139, Potassium Level 4.0, Chloride Level 1 01, Carbon Dioxide Level 27, Anion Gap 11, Blood Urea Nitrogen 101H, Creatinine 3.1H, Estimat Glomerular Filtration Rate 16.1, Glucose Level 82, Calcium Level 8.2L, Phosphorus Level 2.7, Total Bilirubin 0.4, Aspartate Amino Transf (AST/SGOT) 33, Alanine Aminotransferase (ALT/SGPT) 14, Alkaline Phosphatase 168H , C-Reactive Protein, Quantitative 34.2H, Pro-B-Type Natriuretic Peptide > 60997D, Total Protein 6.4, Albumin 1.4L, Globulin 5.0, Albumin/Globulin Ratio 0.3L Height (Feet): 5 Height (Inches): 3.00 Weight (Pounds): 128 General Appearance: WD/WN, alert EENT: normal ENT inspection Neck: supple Cardiovascular: normal rate, regular rhythm, no gallop/murmur Respiratory/Chest: lungs clear, normal breath sounds, no respiratory distress, no accessory muscle use, decreased breath sounds Abdomen: normal bowel sounds, non tender, soft, no organomegaly, no mass Extremities: non-tender Neurologic: alert, depressed affect Assessment/Plan Status Narrative Patient is awake alert afebrile hemodynamically stable no throat of breath and no tachycardia physical exam revealed basically the same finding as previously decreased breath sounds at both bases is now off antibiotic since finding on chest x-ray revealed the patient have atelectasis and may have retrocardiac pneumonia however patient was found replace it extremely difficult to find any subacute unit together with dialysis bases all these findings are chronic improved with current treatment this kind of treatment i.e. 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
[2020-04-16] MEDS: Dyna-Hex 2% Top Sol 2oz TOPIC SCH (20:30)
--- NOTE | 2020-04-16 20:30 | NUR ---
"NURSE NOTES: D/w RN Contract Admin, MISTY [phone] | FAX: , at [facility] to verify AM admission. Per Misty, facility still requests for Dialysis papers to be faxed, Respiratory Treatments, Hep Panel, and COVID Tests prior to admitting."
[2020-04-16] MEDS: Dakin's 0.125% Soln (Quarter Strength) 16oz TOPIC SCH (20:31)
--- NOTE | 2020-04-16 21:49 | Cardiology Progress Note ---
Subjective DATE OF SERVICE: Apr 16, 2020 Repeat CXR (04/16) reveals increasing right effusion and retrocardiac infiltrate. BP control remains stable. Heart rates remain stable since dialysis resumed; last dialysis was April 13. CT scan revealed extensive thoracoabd aortic dissection- Chase Type B No overall change in cardiovascular parameters. Objective Last 24 Hour Vital Signs Date Time Temp Pulse Resp B/P (MAP) Pulse Ox O2 Delivery O2 Flow Rate FiO2 04/16/20 21:37 78 20 30 04/16/20 21:02 98.6 04/16/20 20:31 82 121/66 04/16/20 20:00 Mechanical Ventilator 04/16/20 20:00 30 04/16/20 20:00 98.6 88 17 121/66 (84) 95 04/16/20 20:00 76 04/16/20 19:38 83 24 30 04/16/20 17:05 121/73 04/16/20 16:00 30 04/16/20 16:00 Mechanical Ventilator 04/16/20 16:00 97.7 97 21 121/73 (89) 95 04/16/20 15:23 78 04/16/20 15:00 81 21 30 04/16/20 12:00 Mechanical Ventilator 04/16/20 12:00 101/50 04/16/20 12:00 30 04/16/20 11:52 98.6 69 21 101/50 (67) 95 04/16/20 11:40 69 04/16/20 11:23 66 14 30 04/16/20 08:09 94 123/61 04/16/20 08:09 94 123/61 04/16/20 07:58 30 04/16/20 07:55 Mechanical Ventilator 04/16/20 07:54 96 04/16/20 07:52 98.4 94 25 123/61 (81) 94 04/16/20 07:05 102 23 30 04/16/20 05:25 124/61 04/16/20 05:06 93 15 30 04/16/20 04:00 113 04/16/20 04:00 99.9 95 16 152/69 (96) 94 04/16/20 03:40 Mechanical Ventilator 04/16/20 03:40 45 04/16/20 03:31 89 20 30 04/16/20 01:14 98 20 30 04/16/20 00:36 147/72 04/16/20 00:00 97 04/16/20 00:00 45 04/16/20 00:00 Mechanical Ventilator 04/16/20 00:00 98.7 90 16 147/72 (97) 96 04/15/20 23:33 93 21 30 HEENT: Thin Trach secretions RHYTHM: NSR, SB LUNGS: bilateral rhonchi - few, trach site clean CARDIAC: normal rate, regular rhythm, normal S1 and S2 ABDOMEN: normal bowel sounds, non tender, soft, G-Tube intact EXTREMITIES: normal range of motion, non-tender, normal inspection Laboratory Tests Test 04/16/20 03:20 White Blood Count 13.7 K/UL (4.8-10.8) H Red Blood Count 2.53 M/UL (4.20-5.40) L Hemoglobin 7.7 G/DL (12.0-16.0) L Hematocrit 22.8 % (37.0-47.0) L Mean Corpuscular Volume 90 FL (80-99) Mean Corpuscular Hemoglobin 30.4 PG (27.0-31.0) Mean Corpuscular Hemoglobin Concent 33.7 G/DL (32.0-36.0) Red Cell Distribution Width 14.9 % (11.6-14.8) H Platelet Count 320 K/UL (150-450) Mean Platelet Volume 5.6 FL (6.5-10.1) L Neutrophils (%) (Auto) % (45.0-75.0) Lymphocytes (%) (Auto) % (20.0-45.0) Monocytes (%) (Auto) % (1.0-10.0) Eosinophils (%) (Auto) % (0.0-3.0) Basophils (%) (Auto) % (0.0-2.0) Differential Total Cells Counted 100 Neutrophils % (Manual) 75 % (45-75) Lymphocytes % (Manual) 16 % (20-45) L Monocytes % (Manual) 5 % (1-10) Eosinophils % (Manual) 4 % (0-3) H Basophils % (Manual) 0 % (0-2) Band Neutrophils 0 % (0-8) Platelet Estimate Adequate Platelet Morphology Normal Anisocytosis 1+ Sodium Level 139 MMOL/L (136-145) Potassium Level 4.0 MMOL/L (3.5-5.1) Chloride Level 101 MMOL/L (98-107) Carbon Dioxide Level 27 MMOL/L (21-32) Anion Gap 11 mmol/L (5-15) Blood Urea Nitrogen 101 mg/dL (7-18) H Creatinine 3.1 MG/DL (0.55-1.30) H Estimat Glomerular Filtration Rate 16.1 mL/min (>60) Glucose Level 82 MG/DL (74-106) Calcium Level 8.2 MG/DL (8.5-10.1) L Phosphorus Level 2.7 MG/DL (2.5-4.9) Total Bilirubin 0.4 MG/DL (0.2-1.0) Aspartate Amino Transf (AST/SGOT) 33 U/L (15-37) Alanine Aminotransferase (ALT/SGPT) 14 U/L (12-78) Alkaline Phosphatase 168 U/L (46-116) H C-Reactive Protein, Quantitative 34.2 mg/dL (0.00-0.90) H Pro-B-Type Natriuretic Peptide > 41807 pg/mL (0-125) H Total Protein 6.4 G/DL (6.4-8.2) Albumin 1.4 G/DL (3.4-5.0) L Globulin 5.0 g/dL Albumin/Globulin Ratio 0.3 (1.0-2.7) L Microbiology Date/Time Source Procedure Growth Status 04/16/20 16:30 Nasopharynx SARS-CoV-2 Antigen (Rapid)([facility]) - Final Complete Assessment/Plan Assessment/Plan Aortic dissections - Flomot B Sepsis with recovered shock Sinus node disease with bradycardia Hx pacemaker explant Ischemic cardiomyopathy - hx CABG? Paroxysmal Atrial Fib Respiratory failure with trach Hx thoracic aortic aneurysm repair ESRD Anemia HypoPO4 Hypertension/HHD now with controlled BP Low dose carvedilol restarted due to benefit in setting of AAA with dissection, even though she has developed significant bradycardia. However, if she is to continue regular HD sessions 3x/wk, I would feel comfortable continuing carvedilol at low doses. Avoid metoclopramide, which can aggravate bradycardia. Favor regular HD/UF in this setting. 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
[2020-04-17] VITALS: BP 118/64
[2020-04-17 04:00] VITALS: BP 120/63
--- NOTE | 2020-04-17 05:00 | NUR ---
NURSE NOTES: Pictures taken and uploaded. Bed bath and oral care provided. No cardiopulmonary distress noted. Bleeding stopped. Will monitor.
[2020-04-17] MEDS: Zinc Oxide Oint 2oz TOPIC SCH (05:41)
[2020-04-17] MEDS: Sucralfate 1gm tab GT SCH (05:41)
[2020-04-17] MEDS: HydrALAZINE 50mg tab GT SCH (05:41)
[2020-04-17 05:47] VITALS: BP 123/56
[2020-04-17] MEDS ORDERED: traMADol 50mg tab GT PRN (06:30)
--- NOTE | 2020-04-17 06:30 | Hematology/Onc Progress Note ---
Assessment/Plan Assessment/Plan # Leukocytosis, now with likely bacteremia, as per ID care --> Cxr: : Large left abiola consolidation/effusion --> wbc 30-->40-->27->30->29-->35->32-->28-->21->10.2-->6.6-->7,2-->13.4 --> ABX angelo/vanc-->tobra/edson/vanc-->dapto/ceftazadine->off abx --> smear reviewed --> ID recs are noted # Anemia of chronic disease due to underlying chronic medical issues, multifactorial --> Anemia workup has been reviewed, cw acd --> No evidence of hemolysis is noted, peripheral smear has been reviewed. --> Hgb goal >7. Transfuse prn. --> Epogen required in prior --> Medications have been reviewed --> low threshold for gi evaluation in case has occult + --> hgb 1.9-->5-->7.1-->8.8-->8.1->7.5-> 8.2-->6.8-->9.2-->8.4->7.7-->7.1-->8.8->8.7-->8.2-->8-->7.7 --> 1 unit prbc10/17, 2 units /, 18, 2/3, 2 --> gi eval as needed # Elevated tumor markers, cea and ca 19.9 --> reviewed prior 01/27/20 cat scan a/p --> no masses noted, hold off further extensive w/u # Thrombocytopenia likely reactive v medication induced --> plt 200-->129->91-->86->100->78-->86-->87-->125->135 --> transfuse as needed --> r/o dic, has been ruled out --> anticoag as needed # Coagulopathy with inr 1.5 --> consider vit k/ffp as needed preprocedure --> labs noted # Aortic dissection as seen on Ct ==> when stable, consider transfer hloc # JAVIER initially >2 --> on ivfs --> per renal is on HD # Elevated d-dimer, likely infection related --> venous duplex prior neg --> in prior neg # Dysphagia s/p peg --> as per gi # Thoracic aortic dissection --> s/p repair early 2017 # Chronic Resp failure -> s/p trach/vent # Psychiatric history on ativan/haldol # [place] resident # Dvt ppx --> scds The timing of this note does not necessarily reflect the time of the patient was seen. Greatly appreciate consultation. Subjective Cardiovascular: Denies: no symptoms, chest pain, edema, irregular heart rate, lightheadedness, palpitations, syncope, other Respiratory: Denies: no symptoms, cough, shortness of breath, SOB with excertion, SOB at rest, sputum, wheezing, other Gastrointestinal/Abdominal: Denies: no symptoms, abdomen distended, abdominal pain, black stools, tarry stools, blood in stool, constipated, diarrhea, difficulty swallowing, nausea, poor appetite, poor fluid intake, rectal bleeding, vomiting, other Genitourinary: Denies: no symptoms, burning, discharge, frequency, flank pain, hematuria, incontinence, pain, urgency, other Neurologic/Psychiatric: Denies: no symptoms, anxiety, depressed, emotional problems, headache, numbness, paresthesia, pre-existing deficit, seizure, tingling, tremors, weakness, other Endocrine: Denies: no symptoms, excessive sweating, flushing, intolerance to cold, intolerance to heat, increased hunger, increased thirst, increased urine, unexplained weight loss, other Allergies: Coded Allergies: No Known Allergies (Unverified , 10/10/17) Subjective 03/04 nv, for 1 unit transfusion this am as hgb remains low, wbc better 03/05 egd was done did show large nonbleeding gastric ulcer, high tumor markers 03/06 nv, with davis overnight, bp remains stable, with occult + stool, roman Rn 03/09 nv, remains stable, on vanc/tobra/edson, meds reviewed, no bleeding 03/10 nv, on vent, no bleeding, receiving abx, no night sweats 03/11 nv, dw surgeon and pcp, with aortic dissection to transfer [facility] when stable 03/12 nv, labs reviewed, wbc 21, hgb 7.5, otherwise is comfortable 03/13 nv, labs noted, no bleeding, wbc 13, hgb improved, meds reviewed 03/15 nv, meds reviewed, labs noted, no bleeding, on vent 03/16 nv/tv, peg, meds noted, hgb remains stable, improved to 10 03/17 s/p egd, with gastric ulceration noted, hgb stable 03/18 labs noted, hgb 6.8, to get 1 unit prbc, meds reviewed 03/19 hgb 9.2, plt 78, no hemoptysis, is comfortable 03/20 labs reviewed, meds noted, no bleeding, roman rn 03/22 wound treatment, vent, with gtube, labs reviewed, roman rn 03/23 labs reviewed, meds noted, no bleeding, with gt 03/24 large bm overnight that was bloody, hgb 7.1, roman rn 03/25 labs pending this am, comfortable, nsr, meds noted 03/26 nv, vent, with gt, labs reviewed, hgb 8.8 03/27 nv, vent, labs reviewed, with gt, hgb stable 03/29 nv, vent, labs pending, meds reviewed, no bleeding 03/30 nv, t/v, with gt feeds, labs reviewed, meds noted 03/31 nv, t/v, oral secretions were suctioned, meds reviewed 04/01 nv, t/v, labs are reviewed, meds noted, hgb 7.4 04/02 gt leaking, facial grimacing, labs noted, no bleeding, roman rn 04/03 nv, labs noted, no bleeding, roman rn, h/h stable 04/04 nv, labs reviewed, gtube replacement as per Dr. Mccauley 04/05 nv, labs reviewed, meds noted no bleeding, roman rn 04/06 nv, labs, meds noted, no bleeding, on vt, no new changes 04/07 nv, meds reviewed, labs noted, no bleeding, bp was high on, transferred to icu 04/08 nv, labs noted, no bleeding, evaluated at the bedside 04/09 nv, labs noted, no bleeding, hgb 7.6, repeat pending 04/10 nv is on gt feeds, labs reviewed, hgb better 04/12 nv, gt feeds, asleep, no night sweats, meds reviewed 04/13 sr, afebrile, nv, with gt, no bleeding, labs noted, sdu 3/2 nv, sr, afebrile, for placement to subacute with hd 3/3 nv, meds reviewed, labs are noted, hd placement 04/16 nv, meds reviewed, placement pending, with gt and hd / nv, labs stable, hd was already done, meds reviewed, pending dc Objective Objective Current Medications Medications (Trade) Dose Ordered Sig/Penny Route PRN Reason Start Time Stop Time Status Last Admin Dose Admin Amlodipine Besylate (Norvasc) 5 mg DAILY ORAL 04/10/20 09:00 05/10/20 08:59 04/16/20 08:09 Aspirin (ASA) 81 mg DAILY GT 03/07/20 09:00 04/21/20 08:59 04/16/20 08:09 Carvedilol (Coreg) 3.125 mg EVERY 12 HOURS ORAL 04/16/20 09:00 05/16/20 08:59 04/16/20 20:31 Chlorhexidine Gluconate (Ling-Hex 2%) 1 applic DAILY@1999 TOPIC 03/03/20 20:00 06/01/20 19:59 04/16/20 20:30 Dextrose (Dextrose 50%) 25 ml Q30M PRN IV Hypoglycemia 03/15/20 07:30 06/13/20 07:29 04/05/20 09:08 Dextrose (Dextrose 50%) 50 ml Q30M PRN IV Hypoglycemia 03/15/20 07:30 06/13/20 07:29 Hydralazine HCl (Apresoline) 25 mg Q6H PRN GT For High Blood Pressure 03/02/20 22:00 05/31/20 21:59 04/12/20 22:05 Hydralazine HCl (Apresoline) 50 mg Q6HR GT 04/07/20 00:00 07/06/20 00:00 04/17/20 05:41 Hydrocortisone (Anusol HC) 25 mg Q12HR RECTAL 03/23/20 21:00 06/21/20 08:59 04/16/20 20:31 Lansoprazole (Prevacid) 30 mg BID GT 04/13/20 09:00 05/13/20 08:59 04/16/20 17:05 Sodium Hypochlorite (Dakin's Quarter Strength) 1 applic BEDTIME TOPIC 04/04/20 21:00 05/02/20 08:59 04/16/20 20:31 Sorbitol (sorbitoL) 30 ml Q6HR PRN ORAL Constipation 04/11/20 12:15 05/11/20 12:14 04/12/20 20:44 Sucralfate (Carafate) 1 gm EVERY 6 HOURS GT 03/17/20 18:00 06/09/20 08:59 04/17/20 05:41 Zinc Oxide (Zinc Oxide) 1 applic Q8HR TOPIC 03/25/20 22:00 06/22/20 17:59 04/17/20 05:41 Last 24 Hour Vital Signs Date Time Temp Pulse Resp B/P (MAP) Pulse Ox O2 Delivery O2 Flow Rate FiO2 04/17/20 05:47 97.0 77 14 123/56 (78) 95 04/17/20 05:41 123/56 04/17/20 05:30 72 14 30 04/17/20 04:00 90 04/17/20 04:00 97.0 82 16 120/63 (82) 95 04/17/20 04:00 Mechanical Ventilator 04/17/20 04:00 30 04/17/20 03:19 89 25 30 04/17/20 01:18 81 17 30 04/17/20 00:00 80 04/17/20 00:00 98.4 80 16 118/64 (82) 96 04/17/20 00:00 Mechanical Ventilator 04/17/20 00:00 30 04/16/20 23:28 118/60 04/16/20 23:22 72 14 30 04/16/20 21:37 78 20 30 04/16/20 21:02 98.6 04/16/20 20:31 82 121/66 04/16/20 20:00 Mechanical Ventilator 04/16/20 20:00 30 04/16/20 20:00 98.6 88 17 121/66 (84) 95 04/16/20 20:00 76 04/16/20 19:38 83 24 30 04/16/20 17:05 121/73 04/16/20 16:00 30 04/16/20 16:00 Mechanical Ventilator 04/16/20 16:00 97.7 97 21 121/73 (89) 95 04/16/20 15:23 78 04/16/20 15:00 81 21 30 04/16/20 12:00 Mechanical Ventilator 04/16/20 12:00 101/50 04/16/20 12:00 30 04/16/20 11:52 98.6 69 21 101/50 (67) 95 04/16/20 11:40 69 04/16/20 11:23 66 14 30 04/16/20 08:09 94 123/61 04/16/20 08:09 94 123/61 04/16/20 07:58 30 04/16/20 07:55 Mechanical Ventilator 04/16/20 07:54 96 04/16/20 07:52 98.4 94 25 123/61 (81) 94 04/16/20 07:05 102 23 30 04/16/20 05:25 124/61 04/16/20 05:06 93 15 30 04/16/20 04:00 113 04/16/20 04:00 99.9 95 16 152/69 (96) 94 04/16/20 03:40 Mechanical Ventilator 04/16/20 03:40 45 04/16/20 03:31 89 20 30 04/16/20 01:14 98 20 30 04/16/20 00:36 147/72 04/16/20 00:00 97 04/16/20 00:00 45 04/16/20 00:00 Mechanical Ventilator 04/16/20 00:00 98.7 90 16 147/72 (97) 96 04/15/20 23:33 93 21 30 04/15/20 21:18 73 15 30 04/15/20 20:00 98.9 73 15 126/52 (76) 98 04/15/20 20:00 75 04/15/20 20:00 45 04/15/20 20:00 Mechanical Ventilator 04/15/20 19:16 73 15 30 04/15/20 17:32 126/56 04/15/20 15:58 Mechanical Ventilator 04/15/20 15:56 98.2 78 22 126/56 (79) 98 04/15/20 15:48 74 14 30 04/15/20 15:18 77 04/15/20 13:00 45 04/15/20 12:12 122/51 04/15/20 12:00 Mechanical Ventilator 04/15/20 11:50 98.2 80 21 122/51 (74) 100 04/15/20 11:45 74 04/15/20 11:06 76 16 30 04/15/20 11:00 65 04/15/20 09:09 82 141/63 04/15/20 08:00 Mechanical Ventilator 04/15/20 08:00 30 04/15/20 07:56 98.8 82 20 141/63 (89) 95 04/15/20 07:34 82 04/15/20 07:24 77 16 30 Intake and Output 04/16/20 04/17/20 19:00 07:00 Intake Total 630 ml 400 ml Balance 630 ml 400 ml Intake Free Water 150 ml 120 ml Tube Feeding 480 ml 280 ml # Bowel Movements 1 Labs Test 04/15/20 03:20 04/15/20 03:25 04/16/20 03:20 Phosphorus Level 2.8 MG/DL (2.5-4.9) 2.7 MG/DL (2.5-4.9) Magnesium Level 2.5 MG/DL (1.8-2.4) Total Bilirubin 0.5 MG/DL (0.2-1.0) 0.4 MG/DL (0.2-1.0) Direct Bilirubin 0.2 MG/DL (0.0-0.3) Aspartate Amino Transf (AST/SGOT) 37 U/L (15-37) 33 U/L (15-37) Alanine Aminotransferase (ALT/SGPT) 17 U/L (12-78) 14 U/L (12-78) Alkaline Phosphatase 165 U/L (46-116) 168 U/L (46-116) Total Protein 5.7 G/DL (6.4-8.2) 6.4 G/DL (6.4-8.2) Albumin 1.3 G/DL (3.4-5.0) 1.4 G/DL (3.4-5.0) White Blood Count 11.2 K/UL (4.8-10.8) 13.7 K/UL (4.8-10.8) Red Blood Count 2.66 M/UL (4.20-5.40) 2.53 M/UL (4.20-5.40) Hemoglobin 7.9 G/DL (12.0-16.0) 7.7 G/DL (12.0-16.0) Hematocrit 23.7 % (37.0-47.0) 22.8 % (37.0-47.0) Mean Corpuscular Volume 89 FL (80-99) 90 FL (80-99) Mean Corpuscular Hemoglobin 29.8 PG (27.0-31.0) 30.4 PG (27.0-31.0) Mean Corpuscular Hemoglobin Concent 33.4 G/DL (32.0-36.0) 33.7 G/DL (32.0-36.0) Red Cell Distribution Width 14.6 % (11.6-14.8) 14.9 % (11.6-14.8) Platelet Count 318 K/UL (150-450) 320 K/UL (150-450) Mean Platelet Volume 5.2 FL (6.5-10.1) 5.6 FL (6.5-10.1) Neutrophils (%) (Auto) % (45.0-75.0) % (45.0-75.0) Lymphocytes (%) (Auto) % (20.0-45.0) % (20.0-45.0) Monocytes (%) (Auto) % (1.0-10.0) % (1.0-10.0) Eosinophils (%) (Auto) % (0.0-3.0) % (0.0-3.0) Basophils (%) (Auto) % (0.0-2.0) % (0.0-2.0) Differential Total Cells Counted 100 100 Neutrophils % (Manual) 75 % (45-75) 75 % (45-75) Lymphocytes % (Manual) 19 % (20-45) 16 % (20-45) Monocytes % (Manual) 3 % (1-10) 5 % (1-10) Eosinophils % (Manual) 0 % (0-3) 4 % (0-3) Basophils % (Manual) 0 % (0-2) 0 % (0-2) Band Neutrophils 3 % (0-8) 0 % (0-8) Platelet Estimate Adequate Adequate Platelet Morphology Normal Normal Hypochromasia 3+ Sodium Level 141 MMOL/L (136-145) 139 MMOL/L (136-145) Potassium Level 3.7 MMOL/L (3.5-5.1) 4.0 MMOL/L (3.5-5.1) Chloride Level 104 MMOL/L (98-107) 101 MMOL/L (98-107) Carbon Dioxide Level 28 MMOL/L (21-32) 27 MMOL/L (21-32) Anion Gap 9 mmol/L (5-15) 11 mmol/L (5-15) Blood Urea Nitrogen 91 mg/dL (7-18) 101 mg/dL (7-18) Creatinine 2.9 MG/DL (0.55-1.30) 3.1 MG/DL (0.55-1.30) Estimat Glomerular Filtration Rate 17.4 mL/min (>60) 16.1 mL/min (>60) Glucose Level 99 MG/DL (74-106) 82 MG/DL (74-106) Calcium Level 7.9 MG/DL (8.5-10.1) 8.2 MG/DL (8.5-10.1) Anisocytosis 1+ C-Reactive Protein, Quantitative 34.2 mg/dL (0.00-0.90) Pro-B-Type Natriuretic Peptide > 31704 pg/mL (0-125) Globulin 5.0 g/dL Albumin/Globulin Ratio 0.3 (1.0-2.7) Micro Microbiology Date/Time Source Procedure Growth Status 04/16/20 16:30 Nasopharynx SARS-CoV-2 Antigen (Rapid)([facility]) - Final Complete Height (Feet): 5 Height (Inches): 3.00 Weight (Pounds): 128 Objective Physical Exam: Vitals: reviewed General: NAD HEENT: nc, at Neck: supple ++trach/vent Chest: clear breath sounds bilaterally Cardiovascular: RRR, no s3, s4 Abdomen: soft, nontender, nd +gtube Extremities: no cce, normal range of motion Neuro: alert Evan Muhammad MD Apr 17, 2020 06:30
--- NOTE | 2020-04-17 06:34 | NUR ---
NURSE NOTES: Dr. Muhammad at nursing station; Tramadol 50 mg Gtube Q6 PRN for pain. Will administer once pharmacy verifies.
--- NOTE | 2020-04-17 07:24 | NUR ---
NURSE HAND-OFF REPORT: Important Events on Shift: Plan for discharge Patient Status: Stable Diet: Nepro @ 40 Pending Orders: Pending Results/Labs: Pending MD notification: Latest Vital Signs: Temperature 97.0 , Pulse 77 , B/P 123 /56 , Respiratory Rate 14 , O2 SAT 95 , Mechanical Ventilator, O2 Flow Rate . Vital Sign Comment: EKG Rhythm: Sinus Rhythm Rhythm change?: N Notified?: N -Dr Екатерина HATFIELD Response: Order Received& Read Back Latest [place] Fall Score: 70 Fall Risk: High Risk Safety Measures: Call light Within Reach, Bed Alarm Zone 1, Side Rails Side Rails x3, Bed position Low and Locked. Fall Precautions: Yellow Socks Report given to ERASMO Lu.
--- NOTE | 2020-04-17 07:26 | NUR ---
NURSE NOTES: Received pt from ERASMO Mancilla, pt is awake and confused, pt has trach to ventilator AC 14 TV 500 PEEP 5 FIO2 30%, Pt is on continues heart monitoring. pt has g tube in place is working well. pt has intact iv access L wrist 18G SL. All needs attended, bed is locked and is in the lowest position, call light within easy reach. will continue to monitor.
[2020-04-17] MEDS ORDERED: CARVEDILOL3.125 MG GT (07:55)
[2020-04-17] MEDS ORDERED: ASPIRIN81 MG GT (07:55)
[2020-04-17] MEDS ORDERED: HYDRALAZINE HCL25 M1 GT (07:57)
[2020-04-17] MEDS ORDERED: HYDRALAZINE HCL50 MG GT (07:58)
[2020-04-17] MEDS ORDERED: HYDROCORTISONE25 MG RC (07:59)
[2020-04-17 08:00] VITALS: BP 129/69
[2020-04-17] MEDS ORDERED: LANSOPRAZOLE30 MG GT (08:00)
[2020-04-17] MEDS ORDERED: DAKIN'S473 ML MC (08:01)
[2020-04-17] MEDS ORDERED: SORBITOL 70%30 ML GT (08:02)
[2020-04-17] MEDS ORDERED: TRAMADOL HCL50 MG GT (08:04)
[2020-04-17] MEDS ORDERED: CARAFATE1 G1 GT (08:04)
[2020-04-17] MEDS ORDERED: ZINC OXIDE56.7 G1 TP (08:06)
[2020-04-17] MEDS: Aspirin Baby 81mg GT SCH (08:26)
[2020-04-17] MEDS: Hydrocortisone 25mg supp RECTAL SCH (08:26)
--- NOTE | 2020-04-17 08:28 | Pulmonology Progress Note ---
Subjective ROS Limited/Unobtainable: No Interval Events: none major reported per nursing Constitutional: Reports: fever, other - resolved HEENT: Repors: no symptoms Respiratory: Reports: no symptoms Cardiovascular: Reports: no symptoms Gastrointestinal/Abdominal: Reports: diarrhea Allergies: Coded Allergies: No Known Allergies (Unverified , 10/10/17) All Systems: reviewed and negative except above Objective Last 24 Hour Vital Signs Date Time Temp Pulse Resp B/P (MAP) Pulse Ox O2 Delivery O2 Flow Rate FiO2 04/17/20 08:00 98.1 79 23 129/69 (89) 94 04/17/20 05:47 97.0 77 14 123/56 (78) 95 04/17/20 05:41 123/56 04/17/20 05:30 72 14 30 04/17/20 04:00 90 04/17/20 04:00 97.0 82 16 120/63 (82) 95 04/17/20 04:00 Mechanical Ventilator 04/17/20 04:00 30 04/17/20 03:19 89 25 30 04/17/20 01:18 81 17 30 04/17/20 00:00 80 04/17/20 00:00 98.4 80 16 118/64 (82) 96 04/17/20 00:00 Mechanical Ventilator 04/17/20 00:00 30 04/16/20 23:28 118/60 04/16/20 23:22 72 14 30 04/16/20 21:37 78 20 30 04/16/20 21:02 98.6 04/16/20 20:31 82 121/66 04/16/20 20:00 Mechanical Ventilator 04/16/20 20:00 30 04/16/20 20:00 98.6 88 17 121/66 (84) 95 04/16/20 20:00 76 04/16/20 19:38 83 24 30 04/16/20 17:05 121/73 04/16/20 16:00 30 04/16/20 16:00 Mechanical Ventilator 04/16/20 16:00 97.7 97 21 121/73 (89) 95 04/16/20 15:23 78 04/16/20 15:00 81 21 30 04/16/20 12:00 Mechanical Ventilator 04/16/20 12:00 101/50 04/16/20 12:00 30 04/16/20 11:52 98.6 69 21 101/50 (67) 95 04/16/20 11:40 69 04/16/20 11:23 66 14 30 Intake and Output 04/16/20 04/17/20 19:00 07:00 Intake Total 630 ml 400 ml Balance 630 ml 400 ml Intake Free Water 150 ml 120 ml Tube Feeding 480 ml 280 ml # Bowel Movements 1 General Appearance: no acute distress HEENT: atraumatic, status post trach Respiratory: rhonchi - bilaterally Cardiovascular: normal rate, regular rhythm Extremities: other - edema bilateral Microbiology Date/Time Source Procedure Growth Status 04/16/20 16:30 Nasopharynx SARS-CoV-2 Antigen (Rapid)(ROSITA) - Final Complete 04/16/20 05:13 Sputum Gram Stain Pending Resulted 04/16/20 05:13 Sputum Culture - Preliminary Gram Negative Bacillus 1 Resulted Current Medications Medications (Trade) Dose Ordered Sig/Penny Route PRN Reason Start Time Stop Time Status Last Admin Dose Admin Amlodipine Besylate (Norvasc) 5 mg DAILY ORAL 04/10/20 09:00 05/10/20 08:59 04/16/20 08:09 Aspirin (ASA) 81 mg DAILY GT 03/07/20 09:00 04/21/20 08:59 04/16/20 08:09 Carvedilol (Coreg) 3.125 mg EVERY 12 HOURS ORAL 04/16/20 09:00 05/16/20 08:59 04/16/20 20:31 Chlorhexidine Gluconate (Ling-Hex 2%) 1 applic DAILY@1999 TOPIC 03/03/20 20:00 06/01/20 19:59 04/16/20 20:30 Dextrose (Dextrose 50%) 25 ml Q30M PRN IV Hypoglycemia 03/15/20 07:30 06/13/20 07:29 04/05/20 09:08 Dextrose (Dextrose 50%) 50 ml Q30M PRN IV Hypoglycemia 03/15/20 07:30 06/13/20 07:29 Hydralazine HCl (Apresoline) 25 mg Q6H PRN GT For High Blood Pressure 03/02/20 22:00 05/31/20 21:59 04/12/20 22:05 Hydralazine HCl (Apresoline) 50 mg Q6HR GT 04/07/20 00:00 07/06/20 00:00 04/17/20 05:41 Hydrocortisone (Anusol HC) 25 mg Q12HR RECTAL 03/23/20 21:00 06/21/20 08:59 04/16/20 20:31 Lansoprazole (Prevacid) 30 mg BID GT 04/13/20 09:00 05/13/20 08:59 04/16/20 17:05 Sodium Hypochlorite (Dakin's Quarter Strength) 1 applic BEDTIME TOPIC 04/04/20 21:00 05/02/20 08:59 04/16/20 20:31 Sorbitol (sorbitoL) 30 ml Q6HR PRN ORAL Constipation 04/11/20 12:15 05/11/20 12:14 04/12/20 20:44 Sucralfate (Carafate) 1 gm EVERY 6 HOURS GT 03/17/20 18:00 06/09/20 08:59 04/17/20 05:41 Tramadol HCl (Ultram) 50 mg Q6H PRN GT For Pain 04/17/20 06:30 04/24/20 06:29 04/17/20 06:41 Zinc Oxide (Zinc Oxide) 1 applic Q8HR TOPIC 03/25/20 22:00 06/22/20 17:59 04/17/20 05:41 Assessment/Plan Assessment/Plan 1. Chronic respiratory failure. - CT chest/abd/pelv: improving pleural effusion 2. Mechanical ventilation. - remains on 30% FiO2 saturating well - pulmonary hygiene; needs frequent succtioning 3. Chronic tracheostomy. 4. Chronic G-tube. 5. Anemia. - s/p transfusion - stool OB positive (03/02, 03/03, 03/22) - off anticoags 6. Renal failure. 7. Leukocytosis and sepsis. - WBC now wnl 8. Sepsis UTI 9. Gram positive cocci bacteremia - f/u BCx negative for growth 10. COVID-19 negative 11. Diarrhea - C. diff neg 12. Hypoglycemia - resolved 13. Bradycardia - no urgent indication for pacemaker per cardio 14. Gastric ulcer - on PPI -No active bleeding - GI following 15. Pleural effusion - small; insufficient volume for safe thoracentesis - on HD 16. thoracic aortic aneurysm - noted on CT imaging - pt needs emergent transfer out to [facility] for CT surgery evaluation, primary MD aware - Pt might not be a candidate for TAA repair 17. Ascites - s/p paracentesis (2/3), 2.3L out 18. DVT ppx - on SCD -Venous duplex ultrasound of legs negative for DVT (03/25) Noted discharge planning Medically stable for discharge from pulmonary standpoint The care of this patient was discussed with my supervising physician Time spent for this encounter was approximately 31 minutes Cruz Wilson Apr 17, 2020 08:28
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
--- NOTE | 2020-04-17 10:18 | NUR ---
*-*DISCHARGE PLANNED*-* PATIENT HAS BEEN ACCEPTED AND WILL BE DISCHARGED TO: [facility] P: [phone] FOR NURSE TO NURSE REPORT ROOM# 23.[facility] SET FOR 11AM S/W [id number]. S/W PATIENTS AUNT ON THE FACE-SHEET, WHO IS IN AGREEMENT WITH DISCHARGE PLAN.
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
--- NOTE | 2020-04-17 10:49 | NUR ---
NURSE NOTES: Patients Akil Geiger called notified of patients being discharge to [facility],provided their telephone number,Ok discharge
[2020-04-17 11:32] VITALS: BP 100/48
--- NOTE | 2020-04-17 11:34 | NUR ---
NURSE NOTES: PT HAS DISCHARGE ORDER, ALL D/C ASSESSMENTS AND INSTRUCTIONS DONE. PT IS STABLE, V/S STABLE, NO BELONGINGS, REPORT GIVEN TO [facility]CI[facility], ENDORSED PLAN OF CARE. ANKITA IS AWARE ABOUT GT FEEDING, [facility] SETTING, CXR, HOSPITAL MEDS, LAB, WOUNDS, HD AND ALL ORDERS. DR MONAE IS AWARE ABOUT D/C. IV ACCESS D/C. PT IS LEAVING HOSPITAL WITH AMBULANCE PERSONNEL.
--- NOTE | 2020-04-17 13:45 | Cardiology Progress Note ---
Subjective DATE OF SERVICE: Apr 17, 2020 Repeat CXR (04/16) reveals increasing right effusion and retrocardiac infiltrate. No respiratory distress. BP control remains stable. Heart rates remain stable since dialysis resumed; last dialysis was April 13. CT scan revealed extensive thoracoabd aortic dissection- Chase Type B No overall change in cardiovascular parameters. Objective Last 24 Hour Vital Signs Date Time Temp Pulse Resp B/P (MAP) Pulse Ox O2 Delivery O2 Flow Rate FiO2 04/17/20 11:32 98.1 70 19 100/48 (65) 93 04/17/20 08:27 79 129/69 04/17/20 08:26 79 129/69 04/17/20 08:00 Mechanical Ventilator 04/17/20 08:00 30 04/17/20 08:00 98.1 79 23 129/69 (89) 94 04/17/20 07:42 77 04/17/20 07:22 79 21 30 04/17/20 05:47 97.0 77 14 123/56 (78) 95 04/17/20 05:41 123/56 04/17/20 05:30 72 14 30 04/17/20 04:00 90 04/17/20 04:00 97.0 82 16 120/63 (82) 95 04/17/20 04:00 Mechanical Ventilator 04/17/20 04:00 30 04/17/20 03:19 89 25 30 04/17/20 01:18 81 17 30 04/17/20 00:00 80 04/17/20 00:00 98.4 80 16 118/64 (82) 96 04/17/20 00:00 Mechanical Ventilator 04/17/20 00:00 30 04/16/20 23:28 118/60 04/16/20 23:22 72 14 30 04/16/20 21:37 78 20 30 04/16/20 21:02 98.6 04/16/20 20:31 82 121/66 04/16/20 20:00 Mechanical Ventilator 04/16/20 20:00 30 04/16/20 20:00 98.6 88 17 121/66 (84) 95 04/16/20 20:00 76 04/16/20 19:38 83 24 30 04/16/20 17:05 121/73 04/16/20 16:00 30 04/16/20 16:00 Mechanical Ventilator 04/16/20 16:00 97.7 97 21 121/73 (89) 95 04/16/20 15:23 78 04/16/20 15:00 81 21 30 HEENT: Thin Trach secretions RHYTHM: NSR, SB LUNGS: bilateral rhonchi - few, trach site clean CARDIAC: normal rate, regular rhythm, normal S1 and S2 ABDOMEN: normal bowel sounds, non tender, soft, G-Tube intact EXTREMITIES: normal range of motion, non-tender, normal inspection Microbiology Date/Time Source Procedure Growth Status 04/16/20 16:30 Nasopharynx SARS-CoV-2 Antigen (Rapid)(ROSITA) - Final Complete 04/16/20 16:00 Blood Blood Culture - Preliminary Resulted 04/16/20 05:13 Sputum Gram Stain - Final Resulted 04/16/20 05:13 Sputum Culture - Preliminary Gram Negative Bacillus 1 Resulted Assessment/Plan Assessment/Plan Aortic dissections - Chase B Sepsis with recovered shock Sinus node disease with bradycardia Hx pacemaker explant Ischemic cardiomyopathy - hx CABG? Paroxysmal Atrial Fib Respiratory failure with trach Hx thoracic aortic aneurysm repair ESRD Anemia HypoPO4 Hypertension/HHD now with controlled BP Low dose carvedilol restarted due to benefit in setting of AAA with dissection, even though she has developed significant bradycardia. However, if she is to continue regular HD sessions 3x/wk, I would feel comfortable continuing carvedilol at low doses. Avoid metoclopramide, which can aggravate bradycardia. Favor regular HD/UF in this setting. Vent support Antimicrobials per ID Maintain current antiHTN meds upon discharge to subacute facility. Non-surgical mngmt Deni Willams MD Apr 17, 2020 13:45
--- NOTE | 2020-04-17 14:54 | NUR ---
INSURANCE CLINICALS FAXED TO [facility] T: [phone] F: [phone]
== END 2020-04-17 11:45 | DRG 720 ==
LOC: EDBD 09:23 → EDUNIT# 09:23 → EMR 10:19 → EDBEDREQ 10:26 → 2W 10:43 → EDBEDREQ 11:03 → EDBEDREQSVC 11:03 → EDBEDREQ 17:14 → EDBEDREQSVC 17:14 → EDBEDREQ 17:39 → 2W 03-05 22:30 → ICU 04-04 04:20 → 2W 04-07 06:00
PROC: 5A1955Z Respiratory Ventilation, Greater than 96 Consecutive Hours (ICD-10-PCS; principal; 2020-03-02)
PROC: 5A1D70Z Performance of Urinary Filtration, Intermittent, Less than 6 Hours Per Day (ICD-10-PCS; 2020-03-03)
PROC: 0DD78ZX Extraction of Stomach, Pylorus, Via Natural or Artificial Opening Endoscopic, Diagnostic (ICD-10-PCS; 2020-03-04)
PROC: 0W9G3ZX Drainage of Peritoneal Cavity, Percutaneous Approach, Diagnostic (ICD-10-PCS; 2020-03-18)
PROC: 0DJ08ZZ Inspection of Upper Intestinal Tract, Via Natural or Artificial Opening Endoscopic (ICD-10-PCS; 2020-03-23)
PROC: 0D20XUZ Change Feeding Device in Upper Intestinal Tract, External Approach (ICD-10-PCS; 2020-03-23)
DX: A41.9 Sepsis, unspecified organism (principal); K85.90 Acute pancreatitis without necrosis or infection, unspecified; J18.9 Pneumonia, unspecified organism; N17.9 Acute kidney failure, unspecified; L89.154 Pressure ulcer of sacral region, stage 4; D64.9 Anemia, unspecified; N39.0 Urinary tract infection, site not specified; E87.1 Hypo-osmolality and hyponatremia; R65.21 Severe sepsis with septic shock; J96.11 Chronic respiratory failure with hypoxia; I12.0 Hypertensive chronic kidney disease with stage 5 chronic kidney disease or end stage renal disease; N18.6 End stage renal disease; Z99.2 Dependence on renal dialysis; I49.5 Sick sinus syndrome; I71.01 Dissection of thoracic aorta; I48.0 Paroxysmal atrial fibrillation; I25.10 Atherosclerotic heart disease of native coronary artery without angina pectoris; Z95.1 Presence of aortocoronary bypass graft; R13.10 Dysphagia, unspecified; Z93.0 Tracheostomy status; Z93.1 Gastrostomy status; K25.3 Acute gastric ulcer without hemorrhage or perforation; K20.91 Esophagitis, unspecified with bleeding; F20.9 Schizophrenia, unspecified; D68.9 Coagulation defect, unspecified; Z20.822 Contact with and (suspected) exposure to COVID-19; D69.6 Thrombocytopenia, unspecified; R18.8 Other ascites; J90 Pleural effusion, not elsewhere classified; K31.84 Gastroparesis; R19.7 Diarrhea, unspecified
CPT/HCPCS: 36415; 71045; 71260; 74018; 74177; 76604; 76942; 80048; 80053; 80076; 80202; 81003; 82150; 82270; 82306; 82550; 82553; 82607; 82746; 82803; 82962; 82977; 83036; 83605; 83615; 83690; 83735; 83880; 84100; 84300; 84484; 84550; 85007; 85025; 85610; 85651; 85730; 86140; 86703; 86706; 86707; 86803; 86850; 86900; 86901; 86920; 86927; 87040; 87070; 87086; 87181; 87205; 87324; 93005; 93971; 94002; 94003; 94150; 96361; 96365; 96367; 99291; C9399; J2765; J3430; J7030; J8499; U0002